=== PATIENT | female | born 1985 | race Caucasian/White ===

== ENCOUNTER 2024-04-04 09:41 | Outpatient (OUT) | payer MEDICAID, SELFPAY ==
--- NOTE | 2024-04-04 09:43 | US_ITS ---
[address] [address] Patient Name: MADHU RENDON MRN: [id number] date: 1985 Sex: F Assigned Patient Location: [facility] Current Patient Location: Accession/Order Number: [id number] Exam Date: 04/04/2024 09:43 Report Date: 04/05/2024 04:39 At the request of: MYA MASSEY Procedure: US OB transvaginal EXAMINATION: US OB transvaginal HISTORY: MISSED MENSES COMPARISON: No relevant comparison available. FINDINGS: GESTATIONAL SAC: Present and normal appearing. YOLK SAC: Present and normal appearing. POLE: Present and normal appearing. CARDIAC: Present. UTERUS: Normal size and appearance. OVARIES: Right: Normal. Left: Normal. CERVIX: 4.9 cm in length and closed. CUL-DE-SAC: Normal. OTHER: None. AGE BY LMP: 9 weeks 3 days KLAUDIA BY LMP: 11/04/2024 AGE BY US CRL: 9 weeks 3 days KLAUDIA BY US CRL: 11/04/2024 US/US OB transvaginal IMPRESSION: 1. Single live intrauterine . Electronically authenticated by: HUMERA KIM Date: 04/05/2024 04:39
== END 2024-04-04 09:42 | disposition home or self-care (01) ==
LOC: NOMS 09:41
PROVIDERS: PCP Family Medicine; Visit Provider Obstetrics & Gynecology
DX: Z34.91 Encounter for supervision of normal pregnancy, unspecified, first trimester (principal); Z3A.09 9 weeks gestation of pregnancy; N92.6 Irregular menstruation, unspecified
CPT/HCPCS: 76817

== ENCOUNTER 2024-04-12 10:46 | Outpatient (OUT) | payer MEDICAID, SELFPAY ==
--- OUTSIDE RECORDS SUMMARY | 2024-04-12 10:52 | XMS_ITS | CCD ---
Author Organization [facility] Care Team Providers Care Assistant Department Manager Name Role Phone PENG MONGE R Unavailable Unavailable BIBI CHRISTY Unavailable Unavailable ERIKA LONDON Attending Unavailab ERIKA Haddad Referring Unavailab Haseeb Chavez Attending Unavailable Peng Monge Referring Unavailable Humaira Gaviria MD Primary Care Provider Jonny Wilcox MD Unavailable Evans CASAS Primary Care Physician Cheri Norwood Unavailable Unavailable Cosmo Elliott MD Unavailable [phone] Lauro LARSON, Davida Unavailable [phone] Evans Casas Primary Care Provider [phone] EVANS CASAS Primary Care Unavailable TOD LOPEZ Referring Unavailable Humaira Gaviria MD Primary Care Provider Jonny Wilcox MD P Unavailable Cosmo Elliott MD R Unavailable Lauro RN, Davida Unavailable Evans Casas DO Primary Care Provider [phone] Jonny Wilcox MD P Unavailable Cosmo Elliott MD R Unavailable [phone] Lauro LARSON, Davida Unavailable Evans Casas DO Primary Care Provider DR WILTON HERRMANN Primary Care Unavailable DR WILTON HERRMANN Admitting Unavailable DR WILTON HERRMANN Attending Unavailable MARTHA, DR ACUNA Consulting Unavailable KARASIK, DR ACUNA Admitting Unavailable KARASIK, DR ACUNA Attending Unavailable MONTEZ, DR ROQUE Primary Care Unavailable MONTEZ, DR ROQUE Consulting Unavailable ZIEBER, DR HUMERA Palmer Consulting Unavailable MONTEZ, DR ROQUE Admitting Unavailable MONTEZ, DR ROQUE Attending Unavailable MONTEZ, DR ROQUE Primary Care Unavailable VAN, DR ANGIE Luna Consulting Unavailable MONTEZ, DR ROQUE Consulting Unavailable MONTEZ, DR ROQUE Admitting Unavailable MONTEZ, DR ROQUE Primary Care Unavailable MONTEZ, DR ROQUE Consulting Unavailable MONTEZ, DR ROQUE Attending Unavailable MONTEZ, DR ROQUE Admitting Unavailable MONTEZ, DR ROQUE Consulting Unavailable MONTEZ, DR ROQUE Attending Unavailable MONTEZ, DR ROQUE Primary Care Unavailable MONTEZ, DR ROQUE Admitting Unavailable KARASIK, DR ACUNA Consulting Unavailable MONTEZ, DR ROQUE Primary Care Unavailable MONTEZ, DR ROQUE Attending Unavailable MONTEZ, DR ROQUE Consulting Unavailable ZIEBER, DR HUMERA Palmer Consulting Unavailable MONTEZ, DR ROQUE Admitting Unavailable MONTEZ, DR ROQUE Consulting Unavailable MONTEZ, DR ROQUE Primary Care Unavailable MONTEZ, DR ROQUE Attending Unavailable MONTEZ, DR ROQUE Primary Care Unavailable MONTEZ, DR ROQUE Consulting Unavailable MONTEZ, DR ROQUE Admitting Unavailable MONTEZ, DR ROQUE Attending Unavailable MONTEZ, DR ROQUE Primary Care Unavailable MONTEZ, DR ROQUE Consulting Unavailable MONTEZ, DR ROQUE Admitting Unavailable MONTEZ, DR ROQUE Attending Unavailable MONTEZ, DR ROQUE Admitting Unavailable MONTEZ, DR ROQUE Primary Care Unavailable MONTEZ, DR ROQUE Consulting Unavailable MONTEZ, DR ROQUE Attending Unavailable ZIEBER, DR HUMERA Palmer Consulting Unavailable MONTEZ, DR ROQUE Primary Care Unavailable MONTEZ, DR ROQUE Consulting Unavailable MONTEZ, DR ROQUE Admitting Unavailable MONTEZ, DR ROQUE Attending Unavailable MONTEZ, DR ROQUE Admitting Unavailable MONTEZ, DR ROQUE Consulting Unavailable MONTEZ, DR ROQUE Primary Care Unavailable MONTEZ, DR ROQUE Attending Unavailable MONTEZ, DR ROQUE Primary Care Unavailable MONTEZ, DR ROQUE Consulting Unavailable MONTEZ, DR ROQUE Admitting Unavailable MONTEZ, DR ROQUE Attending Unavailable ZIEBER, DR HUMERA Palmer Consulting Unavailable MONTEZ, DR ROQUE Primary Care Unavailable MONTEZ, DR ROQUE Consulting Unavailable PUSHPA, TIARRA Attending Unavailable FINA, DR HARIKA Tony Admitting Unavailable ZIEBER, DR HUMERA Palmer Consulting Unavailable MONTEZ, DR ROQUE Consulting Unavailable MONTEZ, DR ROQUE Attending Unavailable MONTEZ, DR ROQUE Admitting Unavailable MONTEZ, DR ROQUE Primary Care Unavailable ZIEBER, DR HUMERA Palmer Consulting Unavailable PUSHPA, TIARRA Consulting Unavailable MONTEZ, DR ROQUE Consulting Unavailable MONTEZ, DR ROQUE Admitting Unavailable MONTEZ, DR ROQUE Primary Care Unavailable MONTEZ, DR ROQUE Attending Unavailable MONTEZ, DR ROQUE Primary Care Unavailable MONTEZ, DR ROQUE Consulting Unavailable MONTEZ, DR ROQUE Admitting Unavailable MONTEZ, DR ROQUE Attending Unavailable MONTEZ, DR ROQUE Admitting Unavailable MONTEZ, DR ROQUE Attending Unavailable MONTEZ, DR ROQUE Primary Care Unavailable KARASIK, DR ACUNA Admitting Unavailable KARASIK, DR ACUNA Attending Unavailable MONTEZ, DR ROQUE Primary Care Unavailable KARASIK, DR ACUNA Consulting Unavailable MONTEZ, DR ROQUE Admitting Unavailable MONTEZ, DR ROQUE Primary Care Unavailable MONTEZ, DR ROQUE Consulting Unavailable MONTEZ, DR ROQUE Attending Unavailable ZIEBER, DR HUMERA Palmer Consulting Unavailable MONTEZ, DR ROQUE Admitting Unavailable MONTEZ, DR ROQUE Attending Unavailable MONTEZ, DR ROQUE Primary Care Unavailable MONTEZ, DR ROQUE Admitting Unavailable MONTEZ, DR ROQUE Primary Care Unavailable MONTEZ, DR ROQUE Attending Unavailable KARASIK, DR ACUNA Consulting Unavailable KARASIK, DR ACUNA Admitting Unavailable KARASIK, DR ACUNA Procedure Practitioner Unava ilable KARASIK, DR ACUAN Attending Unavailable MONTEZ, DR ROQUE Primary Care Unavailable MONTEZ, DR ROQUE Consulting Unavailable MONTEZ, DR ROQUE Admitting Unavailable MONTEZ, DR ROQUE Primary Care Unavailable MONTEZ, DR ROQUE Consulting Unavailable MONTEZ, DR ROQUE Attending Unavailable MONTEZ, DR ROQUE Admitting Unavailable MONTEZ, DR ROQUE Consulting Unavailable MONTEZ, DR ROQUE Primary Care Unavailable MONTEZ, DR ROQUE Attending Unavailable MONTEZ, DR ROQUE Admitting Unavailable MONTEZ, DR ROQUE Consulting Unavailable MONTEZ, DR ROQUE Primary Care Unavailable MONTEZ, DR ROQUE Attending Unavailable MONTEZ, DR ROQUE Admitting Unavailable MONTEZ, DR ROQUE Consulting Unavailable MONTEZ, DR ROQUE Primary Care Unavailable MONTEZ, DR ROQUE Attending Unavailable Brenden ROSARIO, Jonny Tsai Unavailable Lauro LARSON, Davdia Unavailable Evans Casas DO Primary Care Provider ZUHAIR MICHELLE Attending Unavailable KAPEVANS CONTRERAS Referring Unavailable KAPBEN, Evans Tony Admitting Unavailable KAPBEN, Evans Tony Attending Unavailable KAPBEN, Evans Tony Admitting Unavailable KAPBEN, Evans Tony Attending Unavailable Benny Uribe Attending Unavailable NELI DUNHAM Attending Unavailabl e Hal, Maxine Varela Attending Unavailable Hal, Maxine Varela Attending Unavailable KAPBEN, Evans Tony Attending Unavailable KAPBEN, Evans Tony Attending Unavailable KAPBEN, Evans Tony Attending Unavailable KAPBEN, Evans Tony Attending Unavailable KAPBEN, Evans Tony Attending Unavailable KAPBEN, Evans Tony Attending Unavailable MissLourdes pizano Attending Unavailab le PRAVEEN, Evans Tony Attending Unavailable Monica Saba Admitting Unavailable Monica Saba Attending Unavailable Monica Saba Referring Unavailable PENG MONGE Consulting Unavailable MD PENG MONGE Consulting Unavailable Lourdes Garber Attending Unavailab Monica Escobar Admitting Unavailable Monica Saba Attending Unavailable Monica Saba Referring Unavailable Benny Uribe Attending Unavailable KAPBEN, Evans Tony Attending Unavailable Monica Saba Attending Unavailable KAPEvans CONTRERAS Admitting Unavailable KAPBEN, Evans Tony Attending Unavailable Day Anni Attending Unavailable Day Anni Attending Unavailable KAPBEN, Evans Tony Attending Unavailable KAPBEN, Evans Tony Attending Unavailable MONTEZ, Wilton R Admitting Unavailable MONTEZ, Wilton R Attending Unavailable KAPBEN, Evans Tony Admitting Unavailable KAPBEN, Evans Tony Attending Unavailable MONTEZ, Wilton R Attending Unavailable MONTEZ, Wilton R Admitting Unavailable MONTEZ, Wilton R Attending Unavailable MONTEZ, Wilton R Admitting Unavailable KAPLE, EVANS Tony Primary Care Unavailable KAPLE, EVANS Tony Primary Care Unavailable ABHYANKAR, SALVADOR Attending Unavailable KAPLE, EVANS Tony Primary Care Unavailable KAPLE, EVANS Tony Primary Care Unavailable ABHYANKAR, SALVADOR Referring Unavailable ABHYANKAR, SALVADOR Attending Unavailable KAPLE, EVANS Tony Primary Care Unavailable ABHYANKAR, SALVADOR Referring Unavailable ABHYANKAR, SALVADOR Attending Unavailable KAPLE, EVANS Tony Primary Care Unavailable ABHYANKAR, SALVADOR Referring Unavailable KAPLE, EVANS Tony Primary Care Unavailable ABHYANKAR, SALVADOR Referring Unavailable ABHYANKAR, SALVADOR Attending Unavailable KAPLE, EVANS Tony Primary Care Unavailable ABHYANKAR, SALVADOR Attending Unavailable ABHYANKAR, SALVADOR Referring Unavailable KAPLE, EVANS Tony Primary Care Unavailable ABHYANKAR, SALVADOR Attending Unavailable ABHYANKAR, SALVADOR Referring Unavailable KAPLE, EVANS Tony Primary Care Unavailable KAPLE, EVANS Tony Primary Care Unavailable KAPLE, EVANS Tony Primary Care Unavailable ABHYANKAR, SALVADOR Referring Unavailable KAPLE, EVANS Tony Primary Care Unavailable ABHYANKAR, SALVADOR Referring Unavailable KAPLE, EVANS Tony Primary Care Unavailable ABHYANKAR, SALVADOR Referring Unavailable MONTEZ, Wilton R Attending Unavailable MONTEZ, Wilton R Attending Unavailable MONTEZ, Wilton R Admitting Unavailable MONTEZ, Wilton R Attending Unavailable MONTEZ, Wilton R Admitting Unavailable MONTEZ, Wilton R Attending Unavailable MONTEZ, Wilton R Admitting Unavailable Kaple Evans ROSARIO Primary Care Provider Allergies Allergy Classification Reported Allergen(s) Allergy Type Date of Onset Reaction(s) Facility (20 sources) Ciprofloxacin; 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: [ciprofloxacin] Drug Allergy 05-19-19 Other: See Comments, Unknown, Numbness and tingling sensation of skin (finding), Nausea (finding), Other (See Comments), GI intolerance [facility] Work Phone: (20 sources) Ciprofloxacin / fluocinolone; 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: [CIPROFLOXACIN-FL UOCINOLONE] Drug Allergy 05-19-19 Other: See Comments [facility] (20 sources) cow milk allergenic extract; 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: [MILK] Drug Allergy 05-25-19 Other: See Comments [facility] Work Phone: (20 sources) Lactalbumin; 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: [LACTALBUMIN] Drug Allergy 05-25-19 18 Unknown, GI Upset [facility] (20 sources) Lactose; 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: [LACTOSE] Drug Allergy 09-11-19 18 GI Upset [facility] (20 sources) Milk Drug Allergy 05-25-19 18 Other: See Comments [facility] (6 sources) Penicillins Drug Allergy 02-01-20 19 Unknown [facility] (20 sources) Seasonal allergy; 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: [SEASONAL ALLERGIES] Allergy to substance 05-05-19 21 GI Upset, Other: See Comments [facility] Work Phone: (20 sources) Milk Products; 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: [Milk Products] Drug allergy Illness (finding) [facility] (2 sources) Ciprofloxacin / fluocinolone Drug Allergy 05-19-19 20 Other (See Comments) [employer] Work Phone: (1 source) Seasonal allergy Propensity to adverse reactions to substance 05-05-19 21 Other (See Comments) [employer] Work Phone: (1 source) Milk-Related Compounds Propensity to adverse reactions to drug 05-25-19 18 Other (See Comments) [employer] Phone: (2 sources) Penicillins Drug Allergy 02-01-20 19 Unknown [facility] (1 source) Ciprofloxacin Drug Allergy 03-30-20 22 [facility] (1 source) MILK CONTAINING PRODUCTS (DAIRY); 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: [MILK CONTAINING PRODUCTS (DAIRY)] Propensity to adverse reactions to drug (disorder) 05-25-19 [facility] (1 source) Lactose (non-medical use) Propensity to adverse reactions 09-11-19 18 [facility] (1 source) Lactose (non-medical use) Drug Allergy 11-15-19 24 [facility] (1 source) Octacosanol Drug Intolerance 05-05-19 21 [facility] (1 source) Other Allergy to substance 05-25-19 18 Other [facility] Work Phone: Medications Current Medications Medication Drug Class(es) Dates Sig (Normalized) Sig (Original) acetaminophen 300 mg / codeine phosphate 30 mg oral tablet (1 source) Opioid Agonist Start: 12-22-2016 acetaminophen-code ine (TYLENOL #3) 300-30 MG per tablet Albuterol (Eqv-ProAir HFA) 90 mcg/inh inhalation aerosol (6 sources) Start: 02-02-2024 take 2 puff(s) by inhalation every six hours Albuterol (Eqv-ProAir HFA) 90 mcg/inh inhalation aerosol 2 puff(s), Inhalation, q6hr, 1 EA, Refill(s) 5, [facility], 168, cm, 02/02/24 14:43:00 EDT, Height/Length Dosing, 101.1, kg, 02/02/24 14:43:00 EDT, Weight Dosing Start Date: 02/02/24 Status: Ordered aspirin 81 mg chewable tablet (1 source) Platelet Aggregation Inhibitor, Nonsteroidal Anti-inflammatory Drug aspirin 81 MG chewable tablet Chew 81 mg in the morning. Active azithromycin 250 mg Tab 5-day Dose Pack (Z-Jonny) (2 sources) Start: 02-02-2024 End: 02-07-2024 azithromycin 250 mg Tab 5-day Dose Pack (Z-Jonny) = 1 packet(s), Oral, As Directed, as directed on package labeling, X 5 day(s), # 6 tab(s), Refills(s) 0, Pharmacy: [facility], 168, cm, 02/02/24 14:43:00 EDT, Height/Length Dosing, 101.1, kg, 02/02/24 14:43:00 EDT, Weight Dosing Start Date: 02/02/24 Stop Date: 02/07/24 Status: Ordered cephalexin 500 mg oral tablet (3 sources) Cephalosporin Antibacterial Start: 08-19-2021 End: 08-29-2021 take 1 tablet by mouth twice daily cephalexin 500 mg oral tablet 500 mg = 1 tab(s), Oral, BID, X 10 day(s), # 20 tab(s), Refills(s) 0, Pharmacy: [facility], 168, cm, 08/19/21 10:50:00 EDT, Height/Length Dosing, 103.6, kg, 08/19/21 10:50:00 EDT, Weight Dosing Start Date: 08/19/21 Stop Date: 08/29/21 Status: Ordered ciprofloxacin 3 mg/ml / dexamethasone 1 mg/ml otic suspension (2 sources) Corticosteroid, Quinolone Antimicrobial Start: 10-23-2023 End: 10-30-2023 Ciprodex 0.3%-0.1% Susp-Otic 4 drop(s), Otic, BID for 7 day(s), 7.5 mL, Refill(s) 0, [facility]/pharmacy #[id number], 168, cm, 10/23/23 16:55:00 EDT, Height/Length Dosing, 106.2, kg, 10/23/23 16:55:00 EDT, Weight Dosing Start Date: 10/23/23 Stop Date: 10/30/23 Status: Ordered Start: 02-15-2023 End: 02-22-2023 Ciprodex 0.3%-0.1% Susp-Otic 4 drop(s), Otic, BID for 7 day(s), 7.5 mL, Refill(s) 0, Only use if drainage or pain of ear shake well before using, [facility], 168, cm, 02/15/23 9:49:00 EDT, Height/Length Dosing, 108, kg, 02/15/23 9:49:00 EDT, Weight Dosing Start Date: 02/15/23 Stop Date: 02/22/23 Status: Ordered docusate sodium 100 mg oral capsule (1 source) take 1 capsule by mouth in the morning docusate sodium (COLACE) 100 MG capsule Take 100 mg by mouth in the morning and 100 mg before bedtime. 0 Active 0.4 ml enoxaparin sodium 100 mg/ml prefilled syringe (20 sources) Low Molecular Weight Heparin Start: End: enoxaparin (LOVENOX) 40 mg/0.4 mL Indications: Primary hypercoagulable state (HCC) , CVA, old, speech/language deficit , Cerebral hyponatremia INJECT 1 SYRINGE SUBCUTANEOUSLY EVERY 24 HOURS 90 mL 01/25/2024 Active Start: 04-06-2022 End: 09-28-2022 enoxaparin (LOVENOX) 40 mg/0 .4 mL Indications: Primary hypercoagulable state (HCC) , CVA, old, speech/language deficit , Cerebral hyponatremia INJECT THE CONTENTS OF ONE SYRINGE (0.4 ML) SUBCUTANEOUSLY EVERY 24 HOURS 90 mL 2 09/28/2022 Active Start: 09-06-2021 End: 10-06-2021 inject 0.8 mL by subcutaneous injection twice daily enoxaparin (LOVENOX) 80 mg/0.8 mL Indications: Primary hypercoagulable state (HCC) Inject 0.8 mL subcutaneously twice daily. 48 mL 5 09/06/2021 10/06/2021 Active Start: 04-07-2020 End: 03-30-2022 inject 0.4 mL by subcutaneous injection every twenty-four hours enoxaparin (LOVENOX) 40 mg/0.4 mL Indications: Primary hypercoagulable state (HCC) , CVA, old, speech/language deficit , Cerebral hyponatremia Inject 0.4 mL subcutaneously every 24 hours. 36 mL 0 12/30/2021 03/30/2022 Active Comment on above: Inject 0.4 mL subcut aneously every 24 hours Inject 0.8 mL subcut aneously twice daily. Inject 0.4 mL subcut aneously every 24 hours. INJECT THE CONTENTS OF ONE SYRINGE (0.4 ML) SUBCUTANEOUSLY EVERY 24 HOURS enoxaparin (LOVENOX) 40 MG/0.4ML injection (1 source) Start: 0 enoxaparin (LOVENOX) 40 MG/0.4ML injection Inject 0.4 mLs into the skin daily 16 mL 1 02/20/2020 Active famotidine 20 mg oral tablet (7 sources) Histamine-2 Receptor Antagonist Start: take 1 tablet by mouth once daily famotidine (PEPCID) 20 mg tablet Take 1 tablet by mouth once daily. To take prior to infusion 1 tablet 11/29/2023 Active Start: 11-29-2023 End: 11-29-2023 famotidine 20 mg injection ( PEPCID) fluticasone propionate 0.05 mg/actuat metered dose nasal spray (3 sources) Corticosteroid Start: 08-03-2023 Flonase 0.05 m g/inh [place] 2 spray(s), Nasal, Daily, 16 gram, Refill(s) 0, each nostril Start Date: 08/03/23 Status: Ordered levothyroxine sodium 0.025 mg oral tablet (20 sources) l-Thyroxine Start: 02-25-2024 End: 02-24-2025 take 1 tablet by mouth before mealtime levothyroxine (Synthroid) 25 MCG tablet Indications: Abnormal TSH Take 1 tablet (25 mcg) by mouth in the morning. Take before meals. 30 tablet 11 02/25/2024 02/24/2025 Active Start: 08-24-2021 End: 09-26-2023 levothyroxine (SYNTHROID) 25 mcg tablet Take 25 mcg by mouth. 0 08/24/2021 09/26/2023 Discontinued take 3 tablets by mo uth once daily levothyroxine (Synthroid) 25 MCG tablet Take 75 mcg by mouth 1 (one) time each day at the same time Active Comment on above: Take 25 mcg by mouth . Lovenox 40 mg/0.4 mL Injection (20 sources) Start: 04-07-20 inject 40 mg by subcutaneous injection every twenty-four hours Lovenox 40 mg/0.4 mL Injection 40 mg, SubCutaneous, q24hr, # 7 EA, Refills(s) 0, Blood Thinner Start Date: 04/07/20 Status: Ordered 24 hr metFORMIN hydrochloride 500 mg extended release oral tablet (20 sources) Biguanide Start: 11-27-19 End: 11-27-19 take 1 tablet by mouth once daily metFORMIN XR (Glucophage-XR) 500 MG 24 hr tablet Indications: Insulin resistance Take 1 tablet (500 mg) by mouth 1 (one) time each day at the same time 30 tablet 11 11/27/2023 11/26/2024 Active Start: 10-20-2022 MetFORMIN (Eqv -Glucophage XR) 500 mg oral tablet, extended release 1,000 mg = 2 tab(s), Oral, Daily, Refills(s) 0 Start Date: 10/20/22 Status: Ordered Start: 03-26-2022 metFORMIN ER ( GLUCOPHAGE XR) 500 mg 24 hr tablet 03/26/2022 Active Multiple Vitamin (Multi-Vitamin) tablet (1 source) take 1 tablet by luna th in the morning Multiple Vitamin (Multi-Vitamin) tablet Take 1 tablet by mouth in the morning. Active multivitamin tablet (20 sources) take 1 tablet by luna th once daily multivitamin tablet Take 1 tablet by mouth once daily. Active take 1 tablet by mouth once mini y multivitamin tablet Take 1 tablet by mouth once daily. 0 Active Comment on above: Take 1 tablet by luna th once daily. ondansetron 4 mg disintegrating oral tablet (1 source) Serotonin-3 Receptor Antagonist Start: 03-07-20 End: 04-06-20 take 1 tablet by mouth every six hours as needed for nausea and vomiting and nausea and nausea ondansetron ODT (Zofran-ODT) 4 MG disintegrating tablet Indications: Nausea Take 1 tablet (4 mg) by mouth every 6 (six) hours if needed for nausea or vomiting 30 tablet 2 03/07/2024 04/06/2024 Active Vit-Fe Fumarate-FA ( PO) (1 source) Start: 11-01-19 Vit-Fe Fumarate-FA ( PO) Take 1 tablet by mouth 0 10/31/2018 Active Vitamin D (12 sources) Start: 08-03-19 Vitamin D 2,000 International_Unit, Oral, qWeek, Refills(s) 0 Start Date: 08/03/23 Status: Ordered Completed/Discontinued Medications Medication Drug Class(es) Dates Sig (Normalized) Sig (Original) 1 ml dexamethasone phosphate 4 mg/ml injection (1 source) Corticosteroid Start: 11-29-2023 End: 11-29-2023 dexAMETHasone sodium phosphate 8 mg injection (DECADRON) iron sucrose 300 mg in NaCl 0.9% 250 mL (VENOFER) (3 sources) Start: 11-29-2023 End: 11-29-2023 iron sucrose 300 mg in NaCl 0.9% 250 mL (VENOFER) Start: 11-22-2023 End: 11-22-2023 iron sucrose 300 mg in NaCl 0.9% 250 mL (VENOFER) Start: 11-15-2023 End: 11-15-2023 iron sucrose 300 mg in NaCl 0.9% 250 mL (VENOFER) multivitamin (MULTIPLE VITAMINS) tablet (7 sources) take 1 tablet by mouth once daily multivitamin (MULTIPLE VITAMINS) tablet Take 1 tablet by mouth once daily. 0 Active Comment on above: Take 1 tablet by luna th once daily. polysaccharide iron complex 391 mg oral capsule (20 sources) Start: 2 End: 4 PRO FE 180 mg iron cap Problems Active Problems Problem Classification Problem Date Documented Date Episodic/Chronic Acute cerebrovascular disease (4 sources) Cerebral infarction; 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: [Cerebral infarction, unspecified] Onset: 0 05-16-2019 Chronic Anxiety disorders (20 sources) Anxiety; 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: [Anxiety disorder, unspecified] Onset: 4 12-24-2020 Chronic Cardiac dysrhythmias (2 sources) Supraventricular tachycardia; 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: [Supraventricular tachycardia] Onset: 0 02-08-2021 Chronic Coagulation and hemorrhagic disorders (20 sources) Antiphospholipid syndrome; 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: [Hypercoagulability state] Onset: 9 07-29-2017 Chronic Deficiency and other anemia (20 sources) Iron 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; 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: [Iron deficiency anemia secondary to blood loss (chronic)] Onset: 2 Chronic Deficiency and other anemia (1 source) Iron deficiency anemia secondary to blood loss (chronic); 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: [Iron deficiency anemia secondary to blood loss (chronic)] Onset: 2 Chronic Deficiency and other anemia (1 source) Anemia; 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: [Anemia, unspecified] Episodic Esophageal disorders (1 source) Laryngopharyngeal reflux; 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: [Gastro-esophageal reflux disease without esophagitis] Onset: 4 11-19-2023 Chronic Headache; including migraine (20 sources) Migraine without aura, not refractory ; 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: [Migraine without aura, not intractable, without status migrainosus] Onset: 8 09-12-2017 Chronic Late effects of cerebrovascular disease (20 sources) 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; 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: [Other speech and language deficits following cerebral infarction] Onset: 0 Chronic Menopausal disorders (1 source) Hormone replacement therapy; 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: [HORMONE REPLACEMENT THERAPY] Onset: 3 Episodic Menstrual disorders (7 sources) Irregular menstruation, unspecified; 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: [Missed period] Onset: 2 Chronic Miscellaneous mental health disorders (20 sources) Psychogenic hyperventilation; 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: [Other somatoform disorders] Onset: 4 10-12-2020 Chronic Multiple sclerosis (1 source) Multiple sclerosis; 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: [Multiple sclerosis] Onset: 8 Chronic Nutritional deficiencies (7 sources) Vitamin D deficiency; 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: [Vitamin D deficiency, unspecified] Onset: 3 12-22-2022 Chronic Other aftercare (1 source) Other residential (current) drug therapy; 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: [OTH SNF CURRENT DRUG THERAPY] Onset: 3 Episodic Other aftercare (1 source) 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; 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: [BLOCKER METAL BASE USE ORAL HYPOGLYCEMIC DX] Onset: 3 Episodic Other circulatory disease (3 sources) History of cerebrovascular disease; 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: [Personal history of transient ischemic attack (TIA), and cerebral infarction without residual deficits] Onset: 0 02-08-2021 Episodic Other circulatory disease (1 source) Personal history of transient ischemic attack (TIA), and cerebral infarction without residual deficits; 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: [PERS HX TIA AND CI NO RESID DEFICIT] Onset: 3 Episodic Other complications of ; puerperium affecting management of mother (2 sources) Anemia in mother complicating childbirth; 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: [Anemia complicating childbirth] Onset: 0 02-08-2021 Chronic Other complications of ; puerperium affecting management of mother (1 source) Other diseases of the blood and blood-forming organs and certain disorders involving the immune mechanism complicating childbirth; 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: [OTH DZ BLD BFO IMMUN COMP CHILDBRTH] Onset: 3 Episodic Other complications of ; puerperium affecting management of mother (1 source) Endocrine, nutritional and metabolic diseases complicating childbirth; 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: [ENDOCRN NUTR MET DZ COMP CHILDBIRTH] Onset: 3 Episodic Other complications of ; puerperium affecting management of mother (1 source) Streptococcus B carrier state complicating childbirth; 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: [STREP B QUIROZ STATE COMP CHILDBIRTH] Onset: 3 Episodic Other complications of (20 sources) Iron deficiency anemia of ; 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: [Anemia complicating , unspecified trimester] Onset: 2 Chronic Other complications of (1 source) Endocrine, nutritional and metabolic diseases complicating , third trimester; 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: [ENDOCRN NUTR MET DZ COMP PG 3RD TRI] Onset: 3 Episodic Other complications of (5 sources) Supervision of elderly multigravida, third trimester; 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: [SUP ELDER MULTIGRAVIDA THIRD TRI] Onset: 2 Episodic Other complications of (1 source) Other diseases of the blood and blood-forming organs and certain disorders involving the immune mechanism complicating , third trimester; 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: [OTH DZ BLD BFO IMMN COMP PG 3RD TRI] Onset: 3 Episodic Other complications of (1 source) Maternal care for excessive growth, third trimester, not applicable or unspecified; 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: [MAT CARE EXCSS FTL GRTH 3RD TRI UNS] Onset: 2 Episodic Other ear and sense organ disorders (2 sources) Otitis externa of right ear; 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: [Unspecified otitis externa, right ear] Onset: 3 Chronic Other ear and sense organ disorders (7 sources) Otitis externa 02-15-2023 Chronic Other endocrine disorders (20 sources) Hypoglycemia; 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: [Hypoglycemia, unspecified] Onset: 4 02-15-2021 Chronic Other hematologic conditions (1 source) H/O: blood disorder; 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: [Personal history of diseases of the blood and blood-forming organs and certain disorders involving the immune mechanism] Onset: 4 Episodic Other lower respiratory disease (9 sources) Cough 04-19-2021 Episodic Other nervous system disorders (1 source) Idiopathic progressive neuropathy; 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: [Idiopathic progressive neuropathy] Onset: 9 Chronic Other nervous system disorders (2 sources) Neuropathy; 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: [Idiopathic progressive neuropathy] Onset: 7 07-11-2019 Chronic Other nervous system disorders (9 sources) Muscle twitch 08-19-2021 Episodic Other nutritional; endocrine; and metabolic disorders (9 sources) Obese class II; 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: [Body mass index (BMI) 36.0-36.9, adult] Onset: 2 Chronic Other nutritional; endocrine; and metabolic disorders (20 sources) Obesity; 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: [Other obesity] Onset: 4 10-12-2020 Chronic Other nutritional; endocrine; and metabolic disorders (20 sources) Morbid obesity; 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: [Morbid (severe) obesity due to excess calories] Onset: 3 Chronic Other nutritional; endocrine; and metabolic disorders (3 sources) Hypercalcemia; 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: [Hypercalcemia] 06-05-2023 Chronic Other nutritional; endocrine; and metabolic disorders (16 sources) Body mass index 30+ - obesity; 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: [Body mass index (BMI) 37.0-37.9, adult] Onset: 4 10-23-2023 Chronic Other nutritional; endocrine; and metabolic disorders (1 source) Hypercalcemia; 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: [Hypercalcemia] Onset: 4 Chronic Other nutritional; endocrine; and metabolic disorders (1 source) H/O: Disorder; 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: [Personal history of other endocrine, nutritional and metabolic disease] Onset: 4 Episodic Other and delivery including normal (20 sources) Normal ; 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: [Encounter for supervision of normal , unspecified, first trimester] Onset: 0 02-12-2020 Episodic Other screening for suspected conditions (not mental disorders or infectious disease) (7 sources) Encounter for screening for malignant neoplasm of cervix; 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: [Encounter for screening for diabetes mellitus] Onset: 2 Episodic Other skin disorders (1 source) Podopompholyx; 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: [Dyshidrosis [pompholyx]] Onset: 4 Episodic Other upper respiratory disease (12 sources) Allergy to pollen 08-03-2023 Chronic Other upper respiratory disease (1 source) Polyp of nasal sinus; 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: [Nasal polyp, unspecified] Onset: 4 Episodic Residual codes; unclassified (1 source) Sleep disorder; 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: [Other sleep disorders] Onset: 3 Chronic Residual codes; unclassified (18 sources) Obstructive sleep apnea syndrome; 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: [Obstructive sleep apnea (adult) (pediatric)] Onset: 4 10-25-2022 Chronic Residual codes; unclassified (3 sources) Patient encounter status; 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: [Other specified health status] Onset: 9 Episodic Residual codes; unclassified (1 source) 39 weeks gestation of ; 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: [39 WEEKS GESTATION OF ] Onset: 3 Episodic Residual codes; unclassified (1 source) Family history of diabetes mellitus; 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: [FAMILY HISTORY OF DIABETES MELLITUS] Onset: 3 Episodic Residual codes; unclassified (1 source) Family history of stroke; 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: [FAMILY HISTORY OF STROKE] Onset: 3 Episodic Residual codes; unclassified (1 source) 38 weeks gestation of ; 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: [38 WEEKS GESTATION OF ] Onset: 3 Episodic Residual codes; unclassified (1 source) 37 weeks gestation of ; 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: [37 WEEKS GESTATION OF ] Onset: 3 Episodic Residual codes; unclassified (1 source) 35 weeks gestation of ; 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: [35 WEEKS GESTATION OF ] Onset: 2 Episodic Residual codes; unclassified (1 source) 34 weeks gestation of ; 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: [34 WEEKS GESTATION OF ] Onset: 2 Episodic Residual codes; unclassified (1 source) 33 weeks gestation of ; 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: [33 WEEKS GESTATION OF ] Onset: 2 Episodic Residual codes; unclassified (1 source) 32 weeks gestation of ; 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: [32 WEEKS GESTATION OF ] Onset: 2 Episodic Residual codes; unclassified (1 source) 31 weeks gestation of ; 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: [31 WEEKS GESTATION OF ] Onset: 2 Episodic Residual codes; unclassified (18 sources) Sleep disorder 10-20-2022 Episodic Residual codes; unclassified (1 source) Localized edema; 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: [Localized edema] Onset: 4 Episodic Thyroid disorders (11 sources) Hypothyroidism; 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: [Hypothyroidism, unspecified] Onset: 0 06-10-2020 Chronic Thyroid disorders (1 source) Disorder of thyroid, unspecified; 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: [DISORDER OF THYROID UNSPECIFIED] Onset: 3 Episodic Transient cerebral ischemia (1 source) Transient cerebral ischemia; 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: [Transient cerebral ischemic attack, unspecified] Onset: 1 06-16-2020 Chronic Unclassified (20 sources) History of SARS-CoV-2 05-10-2021 Unclassified (20 sources) Inhalation injury 06-16-2020 Unclassified (20 sources) Non-smoker 06-16-2020 Unclassified (1 source) CONTACT W/AND (SUSP) EXPOS COVID-19; 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: [CONTACT W/AND (SUSP) EXPOS COVID-19] Onset: 3 Unclassified (5 sources) Patient encounter status 02-05-2024 Viral infection (15 sources) Viral disease 04-27-2023 Episodic Past or Other Problems Problem Classification Problem Date Documented Da te Episodic/Chronic Abdominal pain (20 sources) Abdominal pain; 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: [Pain in pelvis] Onset: 9 10-12-2020 Episodic Acute bronchitis (16 sources) Acute infective bronchitis; 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: [Acute bronchitis due to other specified organisms] Onset: 4 05-10-2021 Episodic Acute posthemorrhagic anemia (2 sources) Acute posthemorrhagic anemia; 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: [Acute posthemorrhagic anemia] Onset: 0 06-10-2020 Episodic Allergic reactions (20 sources) Other allergy status, other than to drugs and biological substances; 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: [Souuy-ly-jzrrlsa vesicular eczema of hands and feet] Onset: 4 Episodic Bacterial infection; unspecified site (2 sources) Bacterial infectious disease; 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: [Other bacterial infections of unspecified site] Onset: 0 02-12-2020 Episodic Calculus of urinary tract (20 sources) History of calculus of kidney; 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: [Personal history of urinary calculi] Onset: 4 11-21-2018 Episodic Cardiac dysrhythmias (11 sources) Palpitations; 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: [Palpitations] Onset: 0 06-10-2020 Episodic Conditions associated with dizziness or vertigo (20 sources) Dizziness; 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: [Dizziness and giddiness] Onset: 9 12-24-2020 Episodic Diabetes mellitus without complication (10 sources) Prediabetes; 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: [Prediabetes] Onset: 4 Episodic Diabetes or abnormal glucose tolerance complicating ; childbirth; or the puerperium (20 sources) Gestational diabetes mellitus in , unspecified control; 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: [Gestational diabetes mellitus in childbirth, unspecified control] Onset: 2 Episodic Diseases of mouth; excluding dental (20 sources) Xerostomia; 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: [Dry mouth, unspecified] Onset: 3 Episodic Fluid and electrolyte disorders (9 sources) Cerebral hyponatremia; 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: [Hypo-osmolality and hyponatremia] Onset: 0 Episodic Gastrointestinal hemorrhage (20 sources) Hematochezia; 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: [Blood-tinged feces] Onset: 4 10-12-2020 Episodic Genitourinary symptoms and ill-defined conditions (20 sources) Genitourinary symptoms; 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: [Unspecified symptoms and signs involving the genitourinary system] Onset: 9 Episodic Immunizations and screening for infectious disease (20 sources) Antibody studies abnormal; 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: [Raised antibody titer] Onset: 8 09-12-2017 Episodic Malaise and fatigue (20 sources) Fatigue; 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: [Other fatigue] Onset: 7 09-11-2017 Episodic Mycoses (20 sources) Candidiasis of vagina Resolved: 9 01-20-2019 Episodic Nutritional deficiencies (12 sources) Vitamin B deficiency; 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: [Deficiency of other specified B group vitamins] Onset: 0 05-16-2019 Episodic OB-related trauma to perineum and vulva (3 sources) First degree perineal tear during delivery - delivered; 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: [First degree perineal laceration during delivery] Onset: 0 02-08-2021 Episodic Other aftercare (2 sources) Long-term current use of anticoagulant; 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] Onset: 0 02-22-2020 Episodic Other aftercare (1 source) Long-term current use of drug therapy; 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: [intermediate (current) use of 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/antipl atelets] Onset: 9 11-15-2023 Episodic Other circulatory disease (20 sources) History of cerebrovascular accident; 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: [Personal history of transient ischemic attack (TIA), and cerebral infarction without residual deficits] Onset: 4 07-29-2017 Episodic Comment on above: reported by pt - rel ated to antiphospholipid syndrome Other circulatory disease (18 sources) Elevated blood-pressure reading without diagnosis of hypertension; 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: [Elevated blood-pressure reading, without diagnosis of hypertension] Onset: 4 01-11-2023 Episodic Other circulatory disease (12 sources) Elevated blood pressure; 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: [Elevated blood-pressure reading, without diagnosis of hypertension] Onset: 4 09-28-2023 Episodic Other complications of ; puerperium affecting management of mother (10 sources) problem; 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: [Unspecified disorders of ] Onset: 4 05-10-2021 Episodic Other complications of ; puerperium affecting management of mother (1 source) Endocrine, nutritional and metabolic disease complicating , childbirth and puerperium; 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: [Endocrine, nutritional and metabolic diseases complicating childbirth] Onset: 0 02-08-2021 Episodic Other complications of ; puerperium affecting management of mother (1 source) Complication of , childbirth and/or the puerperium; 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: [Other diseases of the blood and blood-forming organs and certain disorders involving the immune mechanism complicating childbirth] Onset: 0 02-08-2021 Episodic Other complications of ; puerperium affecting management of mother (2 sources) hemorrhage; 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: [Other immediate hemorrhage] Onset: 0 02-08-2021 Episodic Other complications of (1 source) Vomiting of ; 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: [Vomiting of , unspecified] Onset: 0 07-11-2019 Episodic Other complications of (2 sources) 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; 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: [Maternal care for (suspected) chromosomal abnormality in fetus, not applicable or unspecified] Onset: 0 02-08-2021 Episodic Other complications of (4 sources) Other specified related conditions, third trimester; 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: [OTH SPEC PREG RELATED COND 3RD TRI] Onset: 2 Episodic Other ear and sense organ disorders (1 source) Referred otalgia of right ear; 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: [Otalgia, right ear] Onset: 4 11-19-2023 Episodic Other female genital disorders (2 sources) Noninflammatory disorder of the vagina; 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: [Other specified noninflammatory disorders of vagina] Onset: 9 07-11-2019 Episodic Other female genital disorders (2 sources) Disorder of female reproductive system; 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: [Unspecified condition associated with female genital organs and menstrual cycle] Onset: 0 07-11-2019 Episodic Other female genital disorders (1 source) Other specified noninflammatory disorders of vagina; 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: [OTH SPEC NONINFLAMMATORY D/O VAGINA] Onset: 2 Episodic Other hematologic conditions (20 sources) H/O: anemia - iron deficient; 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: [Personal history of diseases of the blood and blood-forming organs and certain disorders involving the immune mechanism] Onset: 4 12-24-2018 Episodic Other infections; including parasitic (1 source) Personal history of other infectious and parasitic diseases; 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: [History of COVID-19] Onset: 4 11-15-2023 Episodic Other inflammatory condition of skin (1 source) Itching of skin; 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: [Pruritus, unspecified] Onset: 0 06-10-2020 Episodic Other inflammatory condition of skin (1 source) Pruritus, unspecified; 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: [Unspecified pruritic disorder] Onset: 0 11-15-2023 Episodic Other injuries and conditions due to external causes (1 source) Inhalation injury; 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: [Injury, unspecified, initial encounter] Onset: 4 11-15-2023 Episodic Other lower respiratory disease (20 sources) Dyspnea; 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: [Dyspnea, unspecified] Onset: 4 04-19-2021 Episodic Other lower respiratory disease (20 sources) H/O: asthma; 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: [Personal history of other diseases of the respiratory system] Onset: 4 11-21-2018 Episodic Other lower respiratory disease (20 sources) Snoring; 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: [Snoring] Onset: 3 Episodic Other nervous system disorders (2 sources) Muscle fasciculation; 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: [Fasciculation] Onset: 2 Episodic Other nervous system disorders (2 sources) Paresthesia; 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: [Paresthesia of skin] Onset: 0 Episodic Other nervous system disorders (20 sources) Paresthesia of lower extremity; 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: [Paresthesia of skin] Onset: 4 08-19-2021 Episodic Other nervous system disorders (2 sources) Acute postoperative pain; 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: [Other acute postprocedural pain] Onset: 9 07-11-2019 Episodic Other non-traumatic joint disorders (20 sources) Joint pain; 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: [Pain in unspecified joint] Onset: 7 09-11-2017 Episodic Other nutritional; endocrine; and metabolic disorders (16 sources) H/O: hypothyroidism; 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: [Personal history of other endocrine, nutritional and metabolic disease] Onset: 4 04-27-2023 Episodic Other skin disorders (1 source) [id number] vesicular eczema of hands and feet; 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: [Dyshidrosis [pompholyx]] Onset: 4 11-15-2023 Episodic Other upper respiratory disease (11 sources) Deviated nasal septum; 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: [Deviated nasal septum] Onset: 4 Episodic Other upper respiratory disease (10 sources) Polyp of nasal cavity and/or nasal sinus; 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: [Nasal polyp, unspecified] Onset: 4 10-23-2023 Episodic Other upper respiratory infections (20 sources) Acute upper respiratory infection Resolved: 9 01-20-2019 Episodic Otitis media and related conditions (20 sources) Dysfunction of eustachian tube; 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: [Disorder of right Eustachian tube] Onset: 4 05-10-2021 Episodic Ovarian cyst (20 sources) Cyst of ovary; 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: [Cyst of right ovary] Onset: 9 02-13-2019 Episodic Residual codes; unclassified (20 sources) Family history of female genital tract disorder Resolved: 9 01-20-2019 Episodic Residual codes; unclassified (20 sources) FH: Anemia Resolved: 9 01-20-2019 Episodic Residual codes; unclassified (2 sources) First trimester ; 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: [Less than 8 weeks gestation of ] Onset: 0 02-12-2020 Episodic Residual codes; unclassified (2 sources) Gestation period, 32 weeks; 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: [32 weeks gestation of ] Onset: 0 02-08-2021 Episodic Residual codes; unclassified (1 source) Gestation period, 33 weeks; 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: [33 weeks gestation of ] Onset: 0 02-08-2021 Episodic Residual codes; unclassified (1 source) Gestation period, 34 weeks; 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: [34 weeks gestation of ] Onset: 0 02-08-2021 Episodic Residual codes; unclassified (1 source) Gestation period, 35 weeks; 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: [35 weeks gestation of ] Onset: 0 02-08-2021 Episodic Residual codes; unclassified (1 source) Gestation period, 36 weeks; 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: [36 weeks gestation of ] Onset: 0 02-08-2021 Episodic Residual codes; unclassified (1 source) Gestation period, 37 weeks; 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: [37 weeks gestation of ] Onset: 0 02-08-2021 Episodic Residual codes; unclassified (1 source) Gestation period, 38 weeks; 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: [38 weeks gestation of ] Onset: 0 02-08-2021 Episodic Residual codes; unclassified (1 source) Gestation period, 39 weeks; 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: [39 weeks gestation of ] Onset: 0 02-08-2021 Episodic Residual codes; unclassified (3 sources) Other general symptoms and signs; 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: [Other general symptoms] Onset: 0 02-08-2021 Episodic Residual codes; unclassified (1 source) Unspecified blood type, Rh negative; 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: [UNSPECIFIED BLOOD TYPE RH NEGATIVE] Onset: 2 Episodic Residual codes; unclassified (1 source) 28 weeks gestation of ; 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: [28 WEEKS GESTATION OF ] Onset: 2 Episodic Residual codes; unclassified (9 sources) Intolerant of cold; 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: [Other general symptoms and signs] Onset: 4 11-09-2023 Episodic Residual codes; unclassified (1 source) Non-smoker; 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: [Other specified health status] Onset: 4 11-15-2023 Episodic Residual codes; unclassified (1 source) Swelling of salivary gland; 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: [Localized edema] Onset: 4 11-15-2023 Episodic Spondylosis; intervertebral disc disorders; other back problems (2 sources) Neck pain; 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: [Cervicalgia] Onset: 9 07-11-2019 Episodic Spontaneous (20 sources) Miscarriage Resolved: 9 01-20-2019 Episodic Syncope (3 sources) Syncope and collapse; 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: [Syncope and collapse] Onset: 9 07-11-2019 Episodic Unclassified (20 sources) Onset: 7 Resolved: 5 11-01-2018 Unclassified (20 sources) Suspected disease caused by 2019-nCoV 12-24-2020 Unclassified (1 source) Exposure to 2019 novel coronavirus; 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: [Contact with and (suspected) exposure to COVID19] Urinary tract infections (3 sources) Infective urethritis; 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: [Other urethritis] Onset: 0 Episodic Results Test Name Value Interpretation Reference Range Facility HCG ( test) Ql (U)o n 04-04-2024 Interpretation and review of laboratory results Abnormal [facility] Preg Test, Ur Positive Negative [facility] Urinalysis macro (dipstick) panel (U)on 04-04-2024 Bilirubin, UA Negative Negative - 4(70) +++ mg/dL [facility] Blood, UA Negative Negative - 50 Max/mcL [facility] Clarity, UA Clear [facility] Color, UA Yellow [facility] Glucose, UA Negative Negative - 2000(110) ++++ mg/dL [facility] Interpretation and review of laboratory results Normal [facility] Ketones, UA Negative Negative - 160(16) ++++ mg/dL [facility] Leukocytes, UA Negative Negative - 500+++ John/mcL [facility] Nitrite, UA Negative Negative - Positive [facility] pH, UA 5.5 5 - 9 [facility] Protein, UA Negative Negative - 2000(20) ++++ mg/dL [facility] Spec Grav, UA 1.02 1 - 1.03 [facility] Urobilinogen, UA 1.0 0.2 - 12 mg/dL [facility] C Urineon 03-03-2024 Bacteria identified Cx [facility] (U) Microbiology PROCEDURE: Urine Culture [R1] SOURCE: U CleanCatch BODY SITE: COLLECTED DATE/TIME: 03/01/2024 10:30 EDT RECEIVED DATE/TIME: 03/01/2024 13:48 EDT START DATE/TIME: 03/01/2024 13:48 EDT FREE TEXT SOURCE: Wilton HERRMANN DO, DO, Corey R FINAL REPORTS Final Report [] Verified Date/Time: 03/03/2024 08:52 EST 2,000 cfu/ml Mixed skin contaminants Performing Locations R1: This test was performed at: [facility], [address] [place] [address], [id number] , [place], [facility] Comment on above: Performed By: #### [id number] #### [facility] [address] [place] [id number] BhCG Quanton 03-01-2024 HCG.beta subunit Qn 747 m[IU]/mL High 1-3 Fis [facility] Comment on above: Result Comment: 'F N ON < 1 - 3' ' 0.2 - 1 WEEK = 5 TO 50' ' 1 - 2 WEEKS = 50 - 500' ' 2 - 3 WEEKS = 100 - 5000' ' 3 - 4 WEEKS = 500 - 25481' ' 4 - 5 WEEKS = 1000 - 45406' ' 5 - 6 WEEKS = 95982 - 021172' ' 6 - 8 WEEKS = 10259 - 444962' ' 8 - 12 WEEKS = 45737 - 146439' Performed By: #### [id number] #### [facility] [address] [place] [id number] CHEMISTRYOrdered By: SYSTEM SYSTEM on 03-01-2024 HCG.beta subunit Qn 747 m[IU]/mL High 1 - 3 mIU/mL [facility] Comment on above: Result Comment: 'F N ON < 1 - 3' ' 0.2 - 1 WEEK = 5 TO 50' ' 1 - 2 WEEKS = 50 - 500' ' 2 - 3 WEEKS = 100 - 5000' ' 3 - 4 WEEKS = 500 - 50646' ' 4 - 5 WEEKS = 1000 - 52962' ' 5 - 6 WEEKS = 98441 - 772092' ' 6 - 8 WEEKS = 53145 - 685494' ' 8 - 12 WEEKS = 46190 - 211524' BhCG Quanton 10-30-2024 HCG.beta subunit Qn 268 m[IU]/mL High 1-3 Fis [facility] Comment on above: Result Comment: 'F N ON < 1 - 3' ' 0.2 - 1 WEEK = 5 TO 50' ' 1 - 2 WEEKS = 50 - 500' ' 2 - 3 WEEKS = 100 - 5000' ' 3 - 4 WEEKS = 500 - 97451' ' 4 - 5 WEEKS = 1000 - 81173' ' 5 - 6 WEEKS = 85816 - 404943' ' 6 - 8 WEEKS = 15863 - 217261' ' 8 - 12 WEEKS = 17586 - 076542' Performed By: #### 2 [id number] #### [facility] [address] [place] [address] [facility] 02-27-2024 CNPJuaquin Telephone (HEMASA) -- MADHU RENDON ([id number]) 1985 F Date Time Provider Department 02/27/24 NAGA JOHNSON During your visit today, we recorded the following information about you: Naga Johnson RN 02/27/2024 9:45 AM Signed Pt 4 weeks and inquiring if she should have March's lab work completed now or wait until scheduled appt. Pt last labs completed 01/02/24. Pt also would like to know if it is okay to take with iron? Fely: Please advise MARSHA Rush Vivek, MD 02/27/2024 4:39 PM Signed She can take the iron with prenatals. We should Johnathon labs as scheduled. Naga Johnson RN 02/28/2024 8:21 AM Signed Pt aware and agreeable to plan of care. Pt denies any further questions, needs or concerns at this time. Appt verified for lab/follow up Naga Johnson RN Allergies As of Date: 02/27/2024 Noted Allergy Reaction CIPROFLOXACIN 05/19/2019 14 - Other: See Comments 16 - Unknown Comments: Dizziness, weakness sweating CIPROFLOXACIN-FLUOCINOLONE 05/19/2019 14 - Other: See Comments Comments: Dizziness, weakness sweating LACTOSE 09/10/2017 8 - GI Upset Comments: Diarrhea SEASONAL ALLERGIES 05/05/2020 8 - GI Upset 14 - Other: See Comments LACTALBUMIN 05/25/2017 16 - Unknown 8 - GI Upset Comments: Crampy and gassy MILK 05/25/2017 14 - Other: See Comments Comments: Crampy and gassy Diarrhea Other reaction(s): GI Upset Crampy and gassy MILK CONTAINING PRODUCTS (DAIRY) 05/25/2017 14 - Other: See Comments Comments: Crampy and gassy Diarrhea Other reaction(s): GI Upset Crampy and gassy Date Reviewed: 01/02/2024 Reviewed by: Serina Dawson MA - Fully Assessed Reason for Visit: Patient Question [1707] Prescriptions as of 02/28/2024 - enoxaparin (LOVENOX) 40 mg/0.4 mL INJECT 1 SYRINGE SUBCUTANEOUSLY EVERY 24 HOURS - famotidine (PEPCID) 20 mg tablet Take 1 tablet by mouth once daily. To take prior to infusion - metFORMIN ER (GLUCOPHAGE XR) 500 mg 24 hr tablet - multivitamin tablet Take 1 tablet by mouth once daily. 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] 08/01/2022 Encounter Status:Closed by NAGA JOHNSON on 02/28/24 Normal [facility] 02-25-2024 HCG.beta subunit Qn 123 m[IU]/mL High 1-3 Fis [facility] Comment on above: Result Comment: 'F N ON < 1 - 3' ' 0.2 - 1 WEEK = 5 TO 50' ' 1 - 2 WEEKS = 50 - 500' ' 2 - 3 WEEKS = 100 - 5000' ' 3 - 4 WEEKS = 500 - 27178' ' 4 - 5 WEEKS = 1000 - 76388' ' 5 - 6 WEEKS = 65077 - 643502' ' 6 - 8 WEEKS = 46326 - 304900' ' 8 - 12 WEEKS = 07576 - 447927' Performed By: #### 2 [id number] #### [facility] [address] [place] [address] CHEMISTRYOrdered By: SYSTEM SYSTEM on 02-25-2024 HCG.beta subunit Qn 123 m[IU]/mL High 1 - 3 mIU/mL [facility] Comment on above: Result Comment: 'F N ON < 1 - 3' ' 0.2 - 1 WEEK = 5 TO 50' ' 1 - 2 WEEKS = 50 - 500' ' 2 - 3 WEEKS = 100 - 5000' ' 3 - 4 WEEKS = 500 - 29888' ' 4 - 5 WEEKS = 1000 - 48199' ' 5 - 6 WEEKS = 77523 - 327818' ' 6 - 8 WEEKS = 67816 - 599283' ' 8 - 12 WEEKS = 83612 - 758139' [id number] 02-25-2024 HbA1c (Bld) [Mass fraction] 6.0 % High <=5.9 [facility] Comment on above: Performed By: #### 7 [id number] #### [facility] [address] [place] [address] HIV Screen 4th Generation wR fxon 02-24-2024 HIV 1+2 Ab+HIV1 p24 Ag IA Ql Non-Reactive Invalid Interpretation Code Non Reactive [facility] Comment on above: Result Comment: HIV- 1/HIV-2 antibodies and HIV-1 p24 antigen were NOT detected. There is no laboratory evidence of HIV infection. HIV Negative Performed at: [address] [id number] PhD Jd Montano Performed By: #### 9 [id number] #### [facility] [address] [place] [address] [facility] [place] 02-23-2024 HCG.beta subunit Qn 52 m[IU]/mL High 1-3 [facility] Comment on above: Result Comment: 'F N ON < 1 - 3' ' 0.2 - 1 WEEK = 5 TO 50' ' 1 - 2 WEEKS = 50 - 500' ' 2 - 3 WEEKS = 100 - 5000' ' 3 - 4 WEEKS = 500 - 19221' ' 4 - 5 WEEKS = 1000 - 08599' ' 5 - 6 WEEKS = 17405 - 786309' ' 6 - 8 WEEKS = 20381 - 698132' ' 8 - 12 WEEKS = 80311 - 890923' Performed By: #### 2 [id number] #### [facility] [address] [place] [address] CHEMISTRYOrdered By: SYSTEM SYSTEM on 02-23-2024 Cholesterol [Mass/Vol] 225 mg/dL High 120 - 200 mg/dL [facility] Cholesterol in HDL [Mass/Vol] 40 mg/dL Invalid Interpretation Code [facility] Comment on above: Result Comment: '>= 60 LOW RISK' '<= 40 HIGH RISK' Cholesterol in LDL [Mass/Vol] 171 mg/dL High <=129mg/dL [facility] Cholesterol in VLDL [Mass/Vol] 42 mg/dL High 7 - 40 mg/dL [facility] HCG.beta subunit Qn 52 m[IU]/mL High 1 - 3 mIU/mL [facility] Comment on above: Result Comment: 'F N ON < 1 - 3' ' 0.2 - 1 WEEK = 5 TO 50' ' 1 - 2 WEEKS = 50 - 500' ' 2 - 3 WEEKS = 100 - 5000' ' 3 - 4 WEEKS = 500 - 79321' ' 4 - 5 WEEKS = 1000 - 64369' ' 5 - 6 WEEKS = 07678 - 881471' ' 6 - 8 WEEKS = 72538 - 822404' ' 8 - 12 WEEKS = 57738 - 587792' Triglyceride [Mass/Vol] 212 mg/dL High <=149mg/dL Remisol Chem TSH Qn 5.68 m[IU]/L High 0.34 - 5.60 mcIU/mL [facility] CHEMISTRYOrdered By: Chelsey Price on 02-23-2024 HbA1c (Bld) [Mass fraction] 5.9 % Normal <=5.9% [facility] ChemAutoSS [id number] 02-23-2024 HbA1c (Bld) [Mass fraction] 5.9 % Normal <=5.9 [facility] Comment on above: Performed By: #### 7 [id number] #### [facility] [address] [place] [address] Lipid Panelon 02-23-2024 Cholesterol [Mass/Vol] 225 mg/dL High 120-200 [facility] Comment on above: Performed By: #### 2 [id number] #### [facility] [address] [place] [address] Cholesterol in HDL [Mass/Vol] 40 mg/dL Invalid Interpretation Code [facility] Comment on above: Result Comment: '>= 60 LOW RISK' '<= 40 HIGH RISK' Performed By: #### 2 [id number] #### [facility] [address] [place] [address] Cholesterol in LDL [Mass/Vol] 171 mg/dL High <=129 [facility] Comment on above: Performed By: #### 2 [id number] #### [facility] [address] [place] [address] Cholesterol in VLDL [Mass/Vol] 42 mg/dL High 7-40 [facility] Comment on above: Performed By: #### 2 [id number] #### [facility] [address] [place] [address] Triglyceride [Mass/Vol] 212 mg/dL High <=149 [facility] Comment on above: Performed By: #### 2 [id number] #### [facility] [address] [place] [address] TSHon 02-23-2024 TSH Qn 5.68 m[IU]/L High 0.34-5.60 [facility] Comment on above: Performed By: #### 2 [id number] #### [facility] [address] [place] [address] Ambulatory Visit Summaryon 1 Ambulatory Visit Summary Ambulatory Visit Summary MADHU RENDON :1985 Visit Date:02/05/2024 Ambulatory Visit Instructions Your Diagnosis Acute bronchitis due to other specified organisms BMI 35.0-35.9,adult Obesity Antiphospholipid syndrome Gestational diabetes Well adult exam Your Care Team Attending Physician - Evans CASAS DO, FAAFP Primary Care Physician - Evans CASAS DO, FAAFP This Is Your Medications List Contact prescribing physician if questions or concerns albuterol (Albuterol (Eqv-ProAir HFA) 90 mcg/inh inhalation aerosol) azithromycin (azithromycin 250 mg Tab 5-day Dose Pack (Z-Jonny)) enoxaparin (Lovenox 40 mg/0.4 mL Injection) ergocalciferol (Vitamin D) metformin (MetFORMIN (Eqv-Glucophage XR) 500 mg oral tablet, extended release) Procedures Performed Biopsy of breast (06/14/2013), Extraction of wisdom tooth (2006), endoscopy for ovarian cysts to drain. Discharge Vitals Temperature (Oral) 36.7 ?C Heart Rate (Peripheral) 76 Respiratory Rate 16 Blood Pressure 122/70 Height 168 cm Height 66 in Weight 100.8 kg Weight 221.76 lb BMI 35.71 What to do next Scheduled Follow-Up Appointments Sunday 11:40 AM EST With: Evans CASAS DO, FAAFP Where: [facility] [address], [place] [address]- You Need to Schedule the Following Appointments Follow Up with Evans CASAS DO, FAAFP, FAM, PED When: In 3 months Where: [address], [place] [address]- You Need to Complete the Following HgbA1c, Blood, Routine collect, *Est. 02/05/24 +/- 21 day(s), Order for future visit, Lab Collect, Gestational diabetes, Print Label By Order Location HgbA1c, Blood, Routine collect, *Est. 05/07/24 +/- 21 day(s), Order for future visit, Lab Collect, Gestational diabetes, Print Label By Order Location HgbA1c, Blood, Routine collect, *Est. 08/05/24 +/- 21 day(s), Order for future visit, Lab Collect, Gestational diabetes, Print Label By Order Location HgbA1c, Blood, Routine collect, *Est. 11/04/24 +/- 21 day(s), Order for future visit, Lab Collect, Gestational diabetes, Print Label By Order Location HIV Screen 4th Generation wRfx, Blood, Routine collect, 02/05/24, Order for future visit, Lab Collect, Well adult exam, Print Label By Order Location Medications What How Much When Why Instructions Unchanged albuterol (Albuterol (Eqv-ProAir HFA) 90 mcg/ inh inhalation aerosol) 2 Puffs Inhalation Every 6 hours Community acquired pneumonia Contact prescribing physician if questions or concerns Unchanged azithromycin (azithromycin 250 mg Tab 5-day Dose Pack (Z-Jonny)) 1 Packets By Mouth As Directed Community acquired pneumonia Duration: 5 Days as directed on package labeling Contact prescribing physician if questions or concerns Unchanged enoxaparin (Lovenox 40 mg/ 0.4 mL Injection) 40 Milligram Subcutaneous Every 24 hours Contact prescribing physician if questions or concerns Unchanged ergocalciferol (Vitamin D) 2,000 International unit By Mouth Every week Contact prescribing physician if questions or concerns Unchanged metformin (MetFORMIN (Eqv-Glucophage XR) 500 mg oral tablet, extended release) 2 Tablets By Mouth Every day Contact prescribing physician if questions or concerns Allergies Milk Products (Illness) ciprofloxacin (Numbness and tingling of skin, Nausea) Problems Ongoing - Any problem that you are currently receiving treatment for. Acute bronchitis due to other specified organisms Antiphospholipid syndrome Blood pressure elevated without history of HTN BMI 35.0-35.9,adult Cold intolerance COVID-19 vaccine dose declined Deviated septum Dry mouth Dysfunction of right eustachian tube Dyshidrotic eczema Elevated blood pressure reading Environmental allergies Fatigue Gestational diabetes H/O: CVA H/O: hypothyroidism History of asthma History of COVID-19 History of gestational diabetes History of kidney stones Hx of iron deficiency anemia Hyperventilation syndrome Hypoglycemia Increased urinary frequency Inhalation of noxious fumes Iron deficiency Morbid obesity Nasal polyps Non-smoker Obesity NEETA (obstructive sleep apnea) Other sleep disorders Palpitations Paresthesia of bilateral legs Pollen allergies Pre-diabetes Right lower quadrant pain Right ovarian cyst Salivary gland swelling Snoring Systemic viral illness Weakness Well adult exam Historical - Any problem that you are no longer receiving treatment for. Abdominal pain Acute URI Anxiety and depression Bloody stools BMI 37.0-37.9, adult Class 1 obesity with body mass index (BMI) of 34.0 to 34.9 in adult Dizziness Dysuria Family history of anemia Family history of ovarian cyst SOB (shortness of breath) Spontaneous miscarriage Suspected COVID-19 virus infection Vaginal marlee (more content not included)... Normal [facility] Family Medicine Office/Clini c Noteon 02-05-2024 Family Medicine Office/Clinic Note Family Medicine Office/Clinic Note Chief Complaint Patient here for a follow up from on 02/01 for pneumonia. History of Present Illness Patient here for a follow up from on 02/01 for pneumonia. FDLMP 1-2 weeks ago, 10 days late, one before that was 5 days earlier and breast feeding one time per day. I am better, no SOB reported Breast feeding Patient is here for follow-up on Diabetes. How often are you checking your blood sugars? _q day What are your average readings? _115-136 Do you have low blood sugar readings/symptoms? _No Do you have high blood sugar readings/symptoms? No_ Are you compliant with your diet? For the most part _ Do you exercise? Yes Are you compliant with your medications or having difficulty affording your medications? yes and no issues Do you have any of the following symptoms? Vision problems? No Sexual dysfunction? No GI-Nausea/committing/bloat ing? No Lightheadedness? No Paresthesias, Ulcerations or sores? No Review of Systems PHQ Score Initial Depression Screen Score: 0 SCORE ROS - Provider Constitutional: no fever, no chills, no sweats, no weakness. Skin: no Jaundice, no rash, no lesions, no petechiae. ENMT: no ear pain, no sore throat, no congestion, no hoarseness. Respiratory: no shortness of breath, no cough, no orthopnea, no wheezing. Cardiovascular: no chest pain, no palpitations, no edema. Gastrointestinal: no nausea, no vomiting, no diarrhea, no GI bleeding.no constipationnoheartburn Genitourinary: no dysuria, no hematuria, no discharge, no pain.nofreq/urgency Musculoskeletal: no back pain, no trauma.nojoint pain Neurologic: no headache, no dizziness, no numbness, no weakness. Psychiatric: no sleeping problems, no irritability, no mood swings/depression. Heme/Lymph: no bleeding tendency, no bruising tendency, no petechiae, no swollen lymph nodes no Allergy/Imunology no seasonal allergies, no food allergies, no recurrent infections, no impaired immunity. Additional ROS info: Except as noted in the above Review of Systems and in the History of Present Illness all other systems have been reviewed and are negative or noncontributory. Physical Exam Vitals & Measurements T: 36.7 ?C(Oral) HR: 76(Peripheral) RR: 16 BP: 122/70 SpO2: 99% HT: 66 in HT: 168 cm WT: 100.8 kg WT: 221.76 lb BMI: 35.71 General: Well developed, well nourished, in no acute distress Mouth: Mucous membranes moist. Normal oropharynx, and posterior pharynx without lesions or exudates. Tongue normal Neck: Neck supple. No masses or palpable cervical nodes. Trachea midline. Thyroid without nodules, masses, tenderness, or enlargement Lungs: Normal respiratory effort and clear to auscultation Cardio: Regular rate and rhythm, normal S1 and S2, no murmur, no rub Abdomen: Soft, non-distended, non-tender. no G/R/S/Masses Musculoskeletal: No deformity or scoliosis noted. Normal range of motion. Joints normal. No erythema, edema, effusion, or ecchymosis Extremity: No clubbing, cyanosis, edema, or deformity, with normal ROM in both upper and lower bilateral extremities Neurologic: Grossly normal Skin: No rashes, ulcerations, or suspicious lesions Mental Status: Alert and oriented x3. Normal mood and affect Assessment/Plan 1. Acute bronchitis due to other specified organisms (J20.8: Acute bronchitis due to other specified organisms) Marked improvement with Z-Jonny and albuterol per med rec: Urine test negative 2. BMI 35.0-35.9,adult (Z68.35: Body mass index [BMI] 35.0-35.9, adult) The standard range for ages 18 and older is >=18.5 and < 25 kg/m2. Your BMI today was above this range, this falls in the overweight to obese category and there are medical benefits to weight loss. We can offer counselling, referral, and/or medical support in addressing this problem. Your BMI and weight management will be followed at subsequent visits. 3. Obesity (E66.9: Obesity, unspecified) Diet and exercise BMI goal of 25 4. Antiphospholipid syndrome (D68.61: Antiphospholipid syndrome) Lovenox 40 mg subcu, continue to follow-up with technical solutions director 5. 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 Well adult exam (Z00.00: Encounter for general adult medical examination without abnormal findings) HIV screen with her next A1c Ordered: HIV Screen 4th Generation wRfx HIV Screen 4th Generation wRfx Lipid Panel Total time spent preparing the chart, conducting of the encounter with the patient and family and time spent documenting, reviewing, and ordering tests was 30 minutes. Follow-up With When Contact Information Evans CASAS DO, FAAFP, CHRIS, PED In 3 months [address] [facility], [place] [address]- Additional Instructions: Patient Education Acute Bronchitis, Adult Problem List/Past Medical History Ongoing Acute (more content not included)... Normal [facility] Comment on above: Result Comment: Elec tronically Signed By: Evans CASAS DO, FAAFP\.br\Date and Time Signed: 02/05/24 14:44 EDT Ambulatory Visit Summaryon 1 Ambulatory Visit Summary Ambulatory Visit Summary MADHU RENDON :1985 Visit Date:02/02/2024 Ambulatory Visit Instructions Your Diagnosis Community acquired pneumonia Your Care Team Attending Physician - Anni Bernstein MD Primary Care Physician - Evans CASAS DO, FAAFP This Is Your Medications List albuterol (Albuterol (Eqv-ProAir HFA) 90 mcg/inh inhalation aerosol) azithromycin (azithromycin 250 mg Tab 5-day Dose Pack (Z-Jonny)) Contact prescribing physician if questions or concerns enoxaparin (Lovenox 40 mg/0.4 mL Injection) ergocalciferol (Vitamin D) metformin (MetFORMIN (Eqv-Glucophage XR) 500 mg oral tablet, extended release) Procedures Performed Biopsy of breast (06/14/2013), Extraction of wisdom tooth (2006), endoscopy for ovarian cysts to drain. Discharge Vitals Temperature (Oral) 36.7 ?C Heart Rate (Peripheral) 98 Blood Pressure 121/84 Height 168 cm Height 66 in Weight 101.1 kg Weight 222.42 lb BMI 35.82 Medications What How Much When Why Instructions New albuterol (Albuterol (Eqv-ProAir HFA) 90 mcg/ inh inhalation aerosol) 2 Puffs Inhalation Every 6 hours Community acquired pneumonia Refills: 5 Pickup at [facility] 1985 New azithromycin (azithromycin 250 mg Tab 5-day Dose Pack (Z-Jonny)) 1 Packets By Mouth As Directed Community acquired pneumonia Duration: 5 Days as directed on package labeling Pickup at [facility] 1985 Unchanged enoxaparin (Lovenox 40 mg/ 0.4 mL Injection) 40 Milligram Subcutaneous Every 24 hours Contact prescribing physician if questions or concerns Unchanged ergocalciferol (Vitamin D) 2,000 International unit By Mouth Every week Contact prescribing physician if questions or concerns Unchanged metformin (MetFORMIN (Eqv-Glucophage XR) 500 mg oral tablet, extended release) 2 Tablets By Mouth Every day Contact prescribing physician if questions or concerns Pharmacy Information [facility]: [address] [place] [id number] [phone] Allergies Milk Products (Illness) ciprofloxacin (Numbness and tingling of skin, Nausea) Problems Ongoing - Any problem that you are currently receiving treatment for. Antiphospholipid syndrome Blood pressure elevated without history of HTN BMI 37.0-37.9, adult Cold intolerance COVID-19 vaccine dose declined Deviated septum Dry mouth Dysfunction of right eustachian tube Dyshidrotic eczema Elevated blood pressure reading Environmental allergies Fatigue Gestational diabetes H/O: CVA H/O: hypothyroidism History of asthma History of COVID-19 History of gestational diabetes History of kidney stones Hx of iron deficiency anemia Hyperventilation syndrome Hypoglycemia Increased urinary frequency Inhalation of noxious fumes Iron deficiency Morbid obesity Nasal polyps Non-smoker Obesity NEETA (obstructive sleep apnea) Other sleep disorders Palpitations Paresthesia of bilateral legs Pollen allergies Pre-diabetes Right lower quadrant pain Right ovarian cyst Salivary gland swelling Snoring Systemic viral illness Weakness Historical - Any problem that you are no longer receiving treatment for. Abdominal pain Acute URI Anxiety and depression Bloody stools Class 1 obesity with body mass index (BMI) of 34.0 to 34.9 in adult Dizziness Dysuria Family history of anemia Family history of ovarian cyst SOB (shortness of breath) Spontaneous miscarriage Suspected COVID-19 virus infection Vaginal tabitha Patient Survey You may receive a survey via text or e-mail asking about your office visit. Please share your experience with us by completing your survey. We appreciate your feedback and thank you for choosing us for your care. Normal [facility] Family Medicine Office/Clini c Noteon 02-02-2024 Family Medicine Office/Clinic Note Family Medicine Office/Clinic Note Chief Complaint SOB and cough HPI Staff 38 yr old female here for possible pneumonia. states her son has pneumonia. Symptoms started- Headache- yes Body aches- yes Earache- yes both right worse Runny/stuffy nose- yes Problem with Smell- no Problem with Taste- no Sore throat- yes Cough- yes productive with green/bloody mucus Scratchy tickly throat- yes Chest symptoms- SOB and posterior lung pain WHITE- no Orthopnea- no Lung Hx asthma, bronchitis, chest colds- bronchitis and mild asthma Fever/chills- fever last night GI symptoms- nausea COVID exposure- no History of Present Illness MADHU RENDON is a 38 Years White Female presenting [facility] with body aches and productive cough x3 days +sob, flank chest wall pain, sore throat, headache, chest tightness dark yellow with mild mucous production son recently diagnosed with pneumonia hx of mild intermittent asthma does not use inhalers Review of Systems PHQ Score Initial Depression Screen Score: 0 SCORE Negative except as above Physical Exam Vitals & Measurements T: 36.7 ?C(Oral) HR: 98(Peripheral) BP: 121/84 SpO2: 99% HT: 66 in HT: 168 cm WT: 101.1 kg WT: 222.42 lb BMI: 35.82 Gen: No acute distress, sitting comfortably in chair HEENT: Posterior pharynx slightly erythematous, moist mucous membranes, TMs and external ear canals normal, no sinus tenderness, no tonsillar enlargement Cardio: RRR, no murmur/rubs/gallops Resp: +Crackles bilateral lower lung bases, mild expiratory wheezing in lower lung bases Assessment/Plan 1. Community acquired pneumonia (J18.9: Pneumonia, unspecified organism) albuterol inhaler prescribed, take q4h prn azithromycin x5 days prescribed take tylenol or motrin prn drink plenty of fluids Ordered: albuterol, 2 puff(s), Inhalation, q6hr, 1 EA, Refill(s) 5, [facility], 168, cm, 02/02/24 14:43:00 EDT, Height/Length Dosing, 101.1, kg, 02/02/24 14:43:00 EDT, Weight Dosing azithromycin, = 1 packet(s), Oral, As Directed, as directed on package labeling, X 5 day(s), # 6 tab(s), Refills(s) 0, Pharmacy: [facility] 1985, 168, cm, 02/02/24 14:43:00 EDT, Height/Length Dosing, 101.1, kg, 02/02/24 14:43:00 EDT, Weight Dosing 2. BMI 35.0-35.9,adult (Z68.35: Body mass index [BMI] 35.0-35.9, adult) The standard range for ages 18 and older is >=18.5 and < 25 kg/m2. Your BMI today was above this range, this falls in the overweight to obese category and there are medical benefits to weight loss. We can offer counselling, referral, and/or medical support in addressing this problem. Your BMI and weight management will be followed at subsequent visits. 3. Non-smoker (Z78.9: Other specified health status) stable 4. Obesity (E66.9: Obesity, unspecified) increase whole foods, decrease processed foods exercise at least 2.5 hours weekly Follow-up With When Contact Information Anni Bernstein MD, FAM, MED Only if needed [address] [place] [phone] Additional Instructions: Problem List/Past Medical History Ongoing Antiphospholipid syndrome Blood pressure elevated without history of HTN BMI 35.0-35.9,adult BMI 37.0-37.9, adult Cold intolerance COVID-19 vaccine dose declined Deviated septum Dry mouth Dysfunction of right eustachian tube Dyshidrotic eczema Elevated blood pressure reading Environmental allergies Fatigue Gestational diabetes H/O: CVA H/O: hypothyroidism History of asthma History of COVID-19 History of gestational diabetes History of kidney stones Hx of iron deficiency anemia Hyperventilation syndrome Hypoglycemia Increased urinary frequency Inhalation of noxious fumes Iron deficiency Morbid obesity Nasal polyps Non-smoker Obesity NEETA (obstructive sleep apnea) Other sleep disorders Palpitations Paresthesia of bilateral legs Pollen allergies Pre-diabetes Right lower quadrant pain Right ovarian cyst Salivary gland swelling Snoring Systemic viral illness Weakness Historical Abdominal pain Acute URI Anxiety and depression Bloody stools Class 1 obesity with body mass index (BMI) of 34.0 to 34.9 in adult Dizziness Dysuria Family history of anemia Family history of ovarian cyst SOB (shortness of breath) Spontaneous miscarriage Suspected COVID-19 virus infection Vaginal tabitha Procedure/Surgical History Biopsy of breast (06/14/2013), Extraction of wisdom tooth (2006), endoscopy for ovarian cysts to drain. Medications Albuterol (Eqv-ProAir HFA) 90 mcg/inh inhalation aerosol, 2 puff(s), Inhalation, q6hr, 5 refills azithromycin 250 mg Tab 5-day Dose Pack (Z-Jonny), 1 packet(s), Oral, As Directed Lovenox 40 mg/0.4 mL Injection, 40 mg, SubCutaneous, q24hr MetFORMIN (Eqv-Glucophage XR) 500 mg oral tablet, extended release, 1000 mg= 2 tab(s), Oral, Daily Vitamin D, 2000 International_Unit (more content not included)... Normal [facility] Comment on above: Result Comment: Elec tronically Signed By: Anni Bernstein MD\.br\Date and Time Signed: 02/02/24 15:03 EDT CBC W Auto Differential pane l (Bld)on 01-02-2024 Basophils (Bld) [#/Vol] 10*3/uL Normal <0.11 [facility] Comment on above: Order Comment: Speci men Type: BLOOD SPECIMEN Ordering Facility: [facility] Address: [address] [place] [address] Performed By: #### 5 0190-8, 2132-9, 2276-4, 2284-8 #### [facility] CLIA [id number] [address] [place] [address] [place] [address] [place] Basophils/100 WBC (Bld) 0.3 % Normal [facility] Comment on above: Order Comment: Speci men Type: BLOOD SPECIMEN Ordering Facility: [facility] Address: [address] [place] [address] Performed By: #### 5 0190-8, 2131-12, 4, 2283-11 #### [facility] CLIA [id number] [address] [place] [address] [place] Differential cell count method Nom (Bld) Auto Normal [facility] Comment on above: Order Comment: Speci men Type: BLOOD SPECIMEN Ordering Facility: [facility] Address: [address] [place] [address] Performed By: #### 5 0190-8, 2131-12, 2275-07, 2283-11 #### [facility] CLIA [id number] [address] [place] [address] [place] Eosinophils (Bld) [#/Vol] 0.07 10*3/uL Normal <0.46 [facility] Comment on above: Order Comment: Speci men Type: BLOOD SPECIMEN Ordering Facility: [facility] Address: [address] [place] [address] Performed By: #### 5 0190-8, 2131-12, 2275-07, 2283-11 #### [facility] CLIA [id number] [address] [place] [address] [place] Eosinophils/100 WBC (Bld) 0.9 % Normal [facility] Comment on above: Order Comment: Speci men Type: BLOOD SPECIMEN Ordering Facility: [facility] Address: [address] [place] [address] Performed By: #### 5 0190-8, 2131-12, 2275-07, 2283-11 #### [facility] CLIA [id number] [address] [place] [address] [place] Erythrocyte distribution width (RBC) [Ratio] 13.3 % Normal 11.5-15.0 [facility] Comment on above: Order Comment: Speci men Type: BLOOD SPECIMEN Ordering Facility: [facility] Address: [address] [place] [address] Performed By: #### 5 0190-8, 9, 4, 8 #### [facility] CLIA [id number] [address] [place] [address] [place] Hematocrit (Bld) [Volume fraction] 38.5 % Normal 36.0-46.0 [facility] Comment on above: Order Comment: Speci men Type: BLOOD SPECIMEN Ordering Facility: [facility] Address: [address] [place] [address] Performed By: #### 5 0190-8, 9, 4, 2283-11 #### [facility] CLIA [id number] [address] [place] [address] [place] Hemoglobin (Bld) [Mass/Vol] 13.6 g/dL Normal 11.5-15.5 [facility] Comment on above: Order Comment: Speci men Type: BLOOD SPECIMEN Ordering Facility: [facility] Address: [address] [place] [address] Performed By: #### 5 0190-8, 9, 4, 2283-11 #### [facility] CLIA [id number] [address] [place] [address] [place] Immature granulocytes (Bld) [#/Vol] 0.03 10*3/uL Normal <0.10 [facility] Comment on above: Order Comment: Speci men Type: BLOOD SPECIMEN Ordering Facility: [facility] Address: [address] [place] [address] Performed By: #### 5 0190-8, 9, 4, 2283-11 #### [facility] CLIA [id number] [address] [place] [id number] [address] [place] Immature granulocytes/100 WBC (Bld) 0.4 % Normal [facility] Comment on above: Order Comment: Speci men Type: BLOOD SPECIMEN Ordering Facility: [facility] Address: [address] [place] [address] Performed By: #### 5 0190-8, 9, 2275-4, 8 #### [facility] CLIA [id number] [address] [place] [address] [place] Lymphocytes (Bld) [#/Vol] 3.06 10*3/uL Normal 1.00-4.00 [facility] Comment on above: Order Comment: Speci men Type: BLOOD SPECIMEN Ordering Facility: [facility] Address: [address] [place] [address] Performed By: #### 5 0190-8, 9, 4, 8 #### [facility] CLIA [id number] [address] [place] [address] [place] Lymphocytes/100 WBC (Bld) 39.0 % Normal [facility] Comment on above: Order Comment: Speci men Type: BLOOD SPECIMEN Ordering Facility: [facility] Address: [address] [place] [address] Performed By: #### 5 0190-8, 9, 4, 8 #### [facility] CLIA [id number] [address] [place] [address] [place] MCH (RBC) [Entitic mass] 30.8 pg Normal 26.0-34.0 [facility] Comment on above: Order Comment: Speci men Type: BLOOD SPECIMEN Ordering Facility: [facility] Address: [address] [place] [address] Performed By: #### 5 0190-8, 9, 2275-4, 8 #### [facility] CLIA [id number] [address] [place], [place] [address] [place] MCHC (RBC) [Mass/Vol] 35.3 g/dL Normal 30.5-36.0 [facility] Comment on above: Order Comment: Speci men Type: BLOOD SPECIMEN Ordering Facility: [facility] Address: [address] [place] [address] Performed By: #### 5 0190-8, 9, 2275-07, 2283-11 #### [facility] CLIA [id number] [address] [place] [address] [place] MCV (RBC) [Entitic vol] 87.3 fL Normal 80.0-100.0 [facility] Comment on above: Order Comment: Speci men Type: BLOOD SPECIMEN Ordering Facility: [facility] Address: [address] [place] [address] Performed By: #### 5 0190-8, 9, 2275-07, 2283-11 #### [facility] CLIA [id number] [address] [place] [address] [place] Monocytes (Bld) [#/Vol] 0.50 10*3/uL Normal <0.87 [facility] Comment on above: Order Comment: Speci men Type: BLOOD SPECIMEN Ordering Facility: [facility] Address: [address] [place] [address] Performed By: #### 5 0190-8, 9, 2275-07, 2283-11 #### [facility] CLIA [id number] [address] [place] [address] [place] Monocytes/100 WBC (Bld) 6.4 % Normal [facility] Comment on above: Order Comment: Speci men Type: BLOOD SPECIMEN Ordering Facility: [facility] Address: [address] [place] [address] Performed By: #### 5 0190-8, 9, 2275-07, 2283-11 #### [facility] CLIA [id number] [address] [place], [place] [address] [place] Neutrophils (Bld) [#/Vol] 4.17 10*3/uL Normal 1.45-7.50 [facility] Comment on above: Order Comment: Speci men Type: BLOOD SPECIMEN Ordering Facility: [facility] Address: [address] [place] [address] Performed By: #### 5 0190-8, 9, 2275-07, 2283-11 #### [facility] CLIA [id number] [address] [place] [address] [place] Neutrophils/100 WBC (Bld) 53.0 % Normal [facility] Comment on above: Order Comment: Speci men Type: BLOOD SPECIMEN Ordering Facility: [facility] Address: [address] [place] [address] Performed By: #### 5 0190-8, 9, 2275-07, 2283-11 #### [facility] CLIA [id number] [address] [place] [address] [place] Nucleated RBC (Bld) [#/Vol] 10*3/uL Normal <0.01 [facility] Comment on above: Order Comment: Speci men Type: BLOOD SPECIMEN Ordering Facility: [facility] Address: [address] [place] [address] Performed By: #### 5 0190-8, 9, 2275-07, 8 #### [facility] CLIA [id number] [address] [place] [address] [place] Nucleated RBC/100 WBC (Bld) [Ratio] 0.0 /100 WBC Normal [facility] Comment on above: Order Comment: Speci men Type: BLOOD SPECIMEN Ordering Facility: [facility] Address: [address] [place] [address] Performed By: #### 5 0190-8, 9, 2275-07, 2283-11 #### [facility] CLIA [id number] [address] [place], [place] [address] [place] Platelet mean volume (Bld) [Entitic vol] 9.8 fL Normal 9.0-12.7 [facility] Comment on above: Order Comment: Speci men Type: BLOOD SPECIMEN Ordering Facility: [facility] Address: [address] [place] [address] Performed By: #### 5 0190-8, 9, 4, 2283-11 #### [facility] CLIA [id number] [address] [place] [address] [place] Platelets (Bld) [#/Vol] 330 10*3/uL Normal 150-400 [facility] Comment on above: Order Comment: Speci men Type: BLOOD SPECIMEN Ordering Facility: [facility] Address: [address] [place] [address] Performed By: #### 5 0190-8, 9, 2275-07, 2283-11 #### [facility] CLIA [id number] [address] [place] [address] [place] RBC (Bld) [#/Vol] 4.41 10*6/uL Normal 3.90-5.20 [facility] Comment on above: Order Comment: Speci men Type: BLOOD SPECIMEN Ordering Facility: [facility] Address: [address] [place] [address] Performed By: #### 5 0190-8, 9, 2275-07, 2283-11 #### [facility] CLIA [id number] [address] [place], [place] [address] [place] WBC (Bld) [#/Vol] 7.85 10*3/uL Normal 3.70-11.00 [facility] Comment on above: Order Comment: Speci men Type: BLOOD SPECIMEN Ordering Facility: [facility] Address: [address] [place] [address] Performed By: #### 5 0190-8, 9, 2276-4, 2284-8 #### [facility] CLIA [id number] [address] [place] [address] [place] CNOVSPon 01-02-2024 CNOVSP Visit (SP) Office ([facility]) -- MADHU RENDON ([id number]) 1985 F Date Time Provider Department 01/02/24 1:45 PM SALVADOR CALIX During your visit today, we recorded the following information about you: Temperature Pulse Respiration Blood pressure 97.1 degrees 91/minute 16/minute 128/81 Weight Height Last Period 102.7 kg 1.677 m 12/22/23 Salvador Calix MD 01/04/2024 12:54 PM Signed NAME: Madhu Rendon CLINIC NO.: [id number] DATE OF SERVICE: January 02, 2024 ([place]on) Some elements in this clinic note that are critical to medical decision making have been carefully reviewed and included from a prior clinic note dated: June 15, 2023 (Levon) Additional Clinicians involved in Mahdu Rendon's care: Jorge Mcwilliams, Humaira Gaviria, Dr. Boothe CC: hypercoag [facility]. ASSESSMENT: 38 year old woman presents with a prior history of CVA in 2016 and an antiphospholipid antibody that was identified much later in 2018. These were found in [place], [place]. I don't have access to these results. Patient believes that she has anticardiolipin antibodies but wasn't sure. She has been on Plavix for approximately year and a half and had bled heavily on aspirin preceding this. She currently has no evidence of active thrombosis. We had discussed the potential etiology of antiphospholipid antibodies in the context of her symptoms which preceded her diagnosis by approximately 2 years presenting as a CVA. At some point in time she had a vW disease workup but we don't have that specific data from prior workup. After discussion with her neurologist, Dr. Jorge Monge, we put her on prophylactic dose Lovenox throughout her prior but is now again and at 25 weeks. Had difficulty with associated diabetes. Recalls having had a target-like rash shortly before presenting to [place] in 2016 with headaches and was diagnosed with a CVA. - She saw Dr. Baugh but no relevant conclusion was made. She remains on Lovenox - still breast feeding. No clinical need to recheck her APL Ab or Cardiolipin Ab's as results will not change our treatment plan. PLAN: Triage to call iron results Continue Lovenox - patient prefers 40 mg (rather than rec 80mg) Encouraged her to reconsider Take B12 supplement in the form of a sublingual tablet RTC in 3 months Labs same day Vitamin D, TSH, Calcium with CMP _- ____ HPI: Updated Visit, January 02, 2024: Madhu returns today for a follow up. She reports a low grade fever and facial redness that is sore to the touch occurring every month since June for about a few days at a time. In October and November, she reports nerve pain and itching/burning skin as well. She is able to successfully treat with ice packs. She is unable to find a direct correlation between her symptoms although speculates it is a hormonal reaction. She denies spending significant time in the sun prior to her symptoms, although does mention she felt fatigued after a day outside. Workup for inflammatory Lupus has been negative in the past. She was seen in the ER in August for abdominal cramping, workup was unrevealing. She has also had right ear and sinus pain since January - MRI was negative. Numbness and vision changes occur rarely now. I encouraged her to continue supplemental B12 at home. Iron studies are pending - consider iron replacement if indicated. Updated Visit, June 15, 2023: Madhu returns today with her youngest two children. She is still breast feeding. Numbness and vision changes both have subsided, she still plans to see Dr. Monge soon. When she had a stroke in [place], she had symptoms up to a month before: uncontrollable headache, BP was elevated, knee stiffness, and blurry vision. Right facial drooping and difficulty speaking sent her to the hospital. She continues to take vitamins. Updated Visit, May 31, 2023: Virtual Visit Shadow over right eye and some numbness of her face. Feels like she's getting itchy under her skin - intermittent electric-shocks . Abdominal contractions that feel like labor but not low in the pelvis. Weight is unchanged and she is having trouble losing weight. Feels she has a lot of fullness in her neck/throat. Could not operate her video. Updated Visit, March 19, 2023: Virtual Visit: Doing ok but is getting sick. Was not able to connect video. Vitamin D is low. Having trouble with blood sugars Baby and all kids doing well. Still breast feeding. Updated Visit, December 22, 2022: Virtual visit Had a few more bloody bowel movements after we spoke last time. But resolved more than a month ago. Labs are good - no need for iron . B12 is on the lower end of normal. Otherwise and I think unrelated - weak, uri (more content not included)... Normal [facility] Sisi 01-02-2024 [facility] MADHU RENDON ([id number]) 1985 F Date Time Provider Department 01/02/[address] [facility] visit today, we recorded the following information about you: Marleen Smith 01/02/2024 2:[address] Luna is requesting Triage to call Madhu with her FE results. Thank you Valeri Yan RN 01/07/2024 8:30 AM Signed No need for IV iron per CC'd chart from Dr. Calix. Attempt to call pt to notify. Left detailed message on, along with call back number on voicemail. Valeri Yan RN Allergies As of Date: 01/02/2024 Noted Allergy Reaction CIPROFLOXACIN 05/19/2019 14 - Other: See Comments 16 - Unknown Comments: Dizziness, weakness sweating CIPROFLOXACIN-FLUOCINOLONE 05/19/2019 14 - Other: See Comments Comments: Dizziness, weakness sweating LACTOSE 09/10/2017 8 - GI Upset Comments: Diarrhea SEASONAL ALLERGIES 05/05/2020 8 - GI Upset 14 - Other: See Comments LACTALBUMIN 05/25/2017 16 - Unknown 8 - GI Upset Comments: Crampy and gassy MILK 05/25/2017 14 - Other: See Comments Comments: Crampy and gassy Diarrhea Other reaction(s): GI Upset Crampy and gassy MILK CONTAINING PRODUCTS (DAIRY) 05/25/2017 14 - Other: See Comments Comments: Crampy and gassy Diarrhea Other reaction(s): GI Upset Crampy and gassy Date Reviewed: 01/02/2024 Reviewed by: Serina Dawson MA - Fully Assessed Reason for Visit: Results [95] Prescriptions as of 01/07/2024 - famotidine (PEPCID) 20 mg tablet Take 1 tablet by mouth once daily. To take prior to infusion - enoxaparin (LOVENOX) 40 mg/0.4 mL INJECT THE CONTENTS OF ONE SYRINGE (0.4 ML) SUBCUTANEOUSLY EVERY 24 HOURS - metFORMIN ER (GLUCOPHAGE XR) 500 mg 24 hr tablet - multivitamin tablet Take 1 tablet by mouth once daily. 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 Iron deficiency anemia of [O99.019, D*03/27/2022 Primary hypercoagulable state (HCC) [D68.59] 08/01/2022 CVA, old, speech/language deficit [I69.328] 08/01/2022 Encounter Status:Closed by VALERI YAN on 01/07/24 Normal [facility] Comprehensive metabolic 2000 panelon 01-02-2024 Albumin [Mass/Vol] 4.9 g/dL Normal 3.9-4.9 [facility] Comment on above: Order Comment: Speci men Type: BLOOD SPECIMEN Ordering Facility: [facility] Address: [address] [place] [address] Performed By: #### 5 0190-8, 2131-9, 2275-4, 8 #### [facility] CLIA [id number] [address] [place] [address] [place] ALP [Catalytic activity/Vol] 71 U/L Normal 34-123 [facility] Comment on above: Order Comment: Speci men Type: BLOOD SPECIMEN Ordering Facility: [facility] Address: [address] [place] [address] Performed By: #### 5 0190-8, 2131-9, 2275-4, 8 #### [facility] CLIA [id number] [address] [place] [address] [place] ALT [Catalytic activity/Vol] 22 U/L Normal 7-38 [facility] Comment on above: Order Comment: Speci men Type: BLOOD SPECIMEN Ordering Facility: [facility] Address: [address] [place] [address] Performed By: #### 5 0190-8, 2131-9, 2275-4, 8 #### [facility] CLIA [id number] [address] [place] [address] [place] Anion gap [Moles/Vol] 12 mmol/L Normal 8-15 [facility] Comment on above: Order Comment: Speci men Type: BLOOD SPECIMEN Ordering Facility: [facility] Address: [address] [place] [address] Performed By: #### 5 0190-8, 2131-9, 2275-4, 228-8 #### [facility] CLIA [id number] [address] [place] [address] [place] AST [Catalytic activity/Vol] 18 U/L Normal 13-35 [facility] Comment on above: Order Comment: Speci men Type: BLOOD SPECIMEN Ordering Facility: [facility] Address: [address] [place] [address] Performed By: #### 5 0190-8, 2131-9, 2275-4, 2283-8 #### [facility] CLIA [id number] [address] [place] [address] [place] Bilirubin [Mass/Vol] 0.3 mg/dL Normal 0.2-1.3 [facility] Comment on above: Order Comment: Speci men Type: BLOOD SPECIMEN Ordering Facility: [facility] Address: [address] [place] [address] Performed By: #### 5 0190-8, 2131-9, 2275-4, 2283-8 #### [facility] CLIA [id number] [address] [place] [address] [place] Calcium [Mass/Vol] 9.9 mg/dL Normal 8.5-10.2 [facility] Comment on above: Order Comment: Speci men Type: BLOOD SPECIMEN Ordering Facility: [facility] Address: [address] [place] [address] Performed By: #### 5 0190-8, 2131-9, 2275-4, 2283-8 #### [facility] CLIA [id number] [address] [place] [address] [place] Chloride [Moles/Vol] 100 mmol/L Normal 98-107 [facility] Comment on above: Order Comment: Speci men Type: BLOOD SPECIMEN Ordering Facility: [facility] Address: [address] [place] [address] Performed By: #### 5 0190-8, 9, 2275-07, 2283-11 #### [facility] CLIA [id number] [address] [place] [address] [place] CO2 [Moles/Vol] 24 mmol/L Normal 22-30 [facility] Comment on above: Order Comment: Speci men Type: BLOOD SPECIMEN Ordering Facility: [facility] Address: [address] [place] [address] Performed By: #### 5 0190-8, 9, 2275-07, 2283-11 #### [facility] CLIA [id number] [address] [place] [address] [place] Creatinine [Mass/Vol] 0.84 mg/dL Normal 0.58-0.96 [facility] Comment on above: Order Comment: Speci men Type: BLOOD SPECIMEN Ordering Facility: [facility] Address: [address] [place] [address] Performed By: #### 5 0190-8, 9, 2275-07, 2283-11 #### [facility] CLIA [id number] [address] [place] [address] [place] Creatinine and Glomerular filtration rate.predicted panel (S/P/Bld) 91 mL/min/1.73m??? Normal >=60 [facility] Comment on above: Order Comment: Cesar men Type: BLOOD SPECIMEN Ordering Facility: [facility] Address: [address] [place] [address] Result Comment: Hawa mated Glomerular Filtration Rate (eGFR) is calculated using the 2020 CKD-EPI creatinine equation. This equation utilizes serum creatinine, sex, and age as parameters. The creatinine assay has traceable calibration to isotope dilution-mass spectrometry. Refer to KDIGO guidelines for clinical interpretation. In patients with unstable renal function, e.g. those with acute kidney injury, the eGFR may not accurately reflect actual GFR. Performed By: #### 5 0190-8, 2131-12, 2275-07, 2283-11 #### [facility] CLIA [id number] [address] [place] [address] [place] Glucose [Mass/Vol] 84 mg/dL Normal 74-99 [facility] Comment on above: Order Comment: Cesar redd Type: BLOOD SPECIMEN Ordering Facility: [facility] Address: [address] [place] [address] Result Comment: The [place] Diabetes [employer] (ADA) provides guidance for cutoff values for fasting glucose and random glucose. The ADA defines fasting as no caloric intake for at least 8 hours. Fasting plasma glucose results between 100 to 125 mg/dL indicate increased risk for diabetes (prediabetes). Fasting plasma glucose results greater than or equal to 126 mg/dL meet the criteria for diagnosis of diabetes. In the absence of unequivocal hyperglycemia, results should be confirmed by repeat testing. In a patient with classic symptoms of hyperglycemia or hyperglycemic crisis, random plasma glucose results greater than or equal to 200 mg/dL meet the criteria for diagnosis of diabetes. Reference: Standards of Medical Care in Diabetes 2016, [place] [employer]. Diabetes Care. 2016.39(Suppl 1). Performed By: #### 5 0190-8, 9, 2275-07, 2283-11 #### [facility] CLIA [id number] [address] [place] [address] [place] Potassium [Moles/Vol] 3.5 mmol/L Low 3.7-5.1 [facility] Comment on above: Order Comment: Cesar redd Type: BLOOD SPECIMEN Ordering Facility: [facility] Address: [address] [place] [address] Performed By: #### 5 0190-8, 2131-12, 2275-07, 2283-11 #### [facility] CLIA [id number] [address] [place] [address] [place] Protein [Mass/Vol] 7.3 g/dL Normal 6.3-8.0 [facility] Comment on above: Order Comment: Cesar redd Type: BLOOD SPECIMEN Ordering Facility: [facility] Address: [address] [place], [place] [address] Performed By: #### 5 0190-8, 2131-9, 2275-4, 8 #### [facility] CLIA [id number] [address] [place] [address] [place] Sodium [Moles/Vol] 136 mmol/L Normal 136-144 [facility] Comment on above: Order Comment: Speci men Type: BLOOD SPECIMEN Ordering Facility: [facility] Address: [address] [place] [address] Performed By: #### 5 0190-8, 2131-9, 2275-4, 8 #### [facility] CLIA [id number] [address] [place] [address] [place] Urea nitrogen [Mass/Vol] 8 mg/dL Normal 7-21 [facility] Comment on above: Order Comment: Speci men Type: BLOOD SPECIMEN Ordering Facility: [facility] Address: [address] [place] [address] Performed By: #### 5 0190-8, 2131-9, 2275-4, 8 #### [facility] CLIA [id number] [address] [place] [address] [place] Ferritin SerPl-mCncon 2023 Ferritin [Mass/Vol] 261.0 ng/mL High 14.7-205.1 [facility] Comment on above: Order Comment: Speci men Type: BLOOD SPECIMEN Ordering Facility: [facility] Address: [address] [place] [address] Performed By: #### 5 0190-8, 2131-9, 2275-, 2283-8 #### [facility] CLIA [id number] [address] [place] [address] [place] Folate SerPl-mCncon 01-02-20 24 Folate [Mass/Vol] 17.2 ng/mL Normal >4.7 [facility] Comment on above: Order Comment: Speci men Type: BLOOD SPECIMEN Ordering Facility: [facility] Address: [address] [place] [address] Performed By: #### 5 0190-8, 2131-12, 2275-07, 2283-11 #### [facility] CLIA [id number] [address] [place] [address] [place] Iron and Iron binding capaci ty panelon 01-02-2024 Iron [Mass/Vol] 66 ug/dL Normal 41-186 [facility] Comment on above: Order Comment: Speci men Type: BLOOD SPECIMEN Ordering Facility: [facility] Address: [address] [place] [address] Performed By: #### 5 0190-8, 2131-12, 2275-07, 2283-11 #### [facility] CLIA [id number] [address] [place] [address] [place] Iron binding capacity [Mass/Vol] 354 ug/dL Normal 232-386 [facility] Comment on above: Order Comment: Speci men Type: BLOOD SPECIMEN Ordering Facility: [facility] Address: [address] [place] [address] Performed By: #### 5 0190-8, 2131-12, 2275-07, 2283-11 #### [facility] CLIA [id number] [address] [place] [address] [place] Iron/TIBC [Molar ratio] 18.6 % Normal 15.0-57.0 [facility] Comment on above: Order Comment: Speci men Type: BLOOD SPECIMEN Ordering Facility: [facility] Address: [address] [place] [address] Performed By: #### 5 0190-8, 2131-12, 2275-07, 2283-11 #### [facility] CLIA [id number] [address] [place] [address] [place] Vit B12 SerPl-mCncon 024 Cobalamin (Vitamin B12) [Mass/Vol] 460 pg/mL Normal 232-1245 [facility] Comment on above: Order Comment: Speci men Type: BLOOD SPECIMEN Ordering Facility: [facility] Address: [address] [place] [address] Performed By: #### 5 0190-8, 2132-9, 2276-4, 2284-8 #### [facility] CLIA [id number] [address] [place] [address] CNPNon 12-17-2023 CNPN Telephone (HEMASA) -- MADHU RENDON ([id number]) 1985 F Date Time Provider Department 12/17/23 NAGA JOHNSON During your visit today, we recorded the following information about you: Naga Johnson RN 12/17/2023 11:39 AM Signed Pt reports onset of low grade fever (99.7), on and off since 12/13/23. Feels flushed, at time like pins/needles in my extremities, and burning eyes. She is asking if this is a possible delayed reaction to 3rd dose of Iron rec'd 11/29/23? Pt had rec'd IV steroid/pepcid for mild reaction with 2nd dose. She reports her son also came home last week with fever >100 . She also states there is a good chance I may be again, I just haven't taken a test. Pt encouraged to test for verification. Pharm/Fely: possible delayed reaction to IV Iron 11/29/23? Salvador Calix MD 12/17/2023 12:53 PM Signed No - sounds like she has some infectious process going on - would rec PCP. Naga Johnson RN 12/17/2023 12:57 PM Signed Pt updated and will follow up with PCP. Denies further questions, needs or concerns at this time for our provider. Naga Johnson RN Allergies As of Date: 12/17/2023 Noted Allergy Reaction CIPROFLOXACIN 05/19/2019 14 - Other: See Comments 16 - Unknown Comments: Dizziness, weakness sweating CIPROFLOXACIN-FLUOCINOLONE 05/19/2019 14 - Other: See Comments Comments: Dizziness, weakness sweating LACTOSE 09/10/2017 8 - GI Upset Comments: Diarrhea SEASONAL ALLERGIES 05/05/2020 8 - GI Upset 14 - Other: See Comments LACTALBUMIN 05/25/2017 16 - Unknown 8 - GI Upset Comments: Crampy and gassy MILK 05/25/2017 14 - Other: See Comments Comments: Crampy and gassy Diarrhea Other reaction(s): GI Upset Crampy and gassy MILK CONTAINING PRODUCTS (DAIRY) 05/25/2017 14 - Other: See Comments Comments: Crampy and gassy Diarrhea Other reaction(s): GI Upset Crampy and gassy Date Reviewed: 06/15/2023 Reviewed by: Serina Dawson MA - Fully Assessed Prescriptions as of 12/17/2023 - famotidine (PEPCID) 20 mg tablet Take 1 tablet by mouth once daily. To take prior to infusion - enoxaparin (LOVENOX) 40 mg/0.4 mL INJECT THE CONTENTS OF ONE SYRINGE (0.4 ML) SUBCUTANEOUSLY EVERY 24 HOURS - metFORMIN ER (GLUCOPHAGE XR) 500 mg 24 hr tablet - multivitamin tablet Take 1 tablet by mouth once daily. 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 EXAMINATION: MRI Brain w/o Contrast HISTORY: Stroke, Z86.79. Right-sided headache. Blurred vision. History of antiphospholipid syndrome. COMPARISON: MRI 04/14/2020. TECHNIQUE: Routine noncontrast brain MRI protocol including diffusion and gradient echo images. RESULT: MR BRAIN: Acute Change: There is no evidence of restricted diffusion to suggest an acute infarct. Hemorrhage: No evidence of prior parenchymal hemorrhage on the gradient echo images. Mass Effect / Mass Lesion: No evidence of an intracranial mass or extra-axial fluid collection. No significant mass effect. Chronic Change: Single punctate hyperintense T2//FLAIR focus within the subcortical left parietal region, nonspecific, chronic, and unchanged. Parenchyma: No significant volume loss for age. Ventricles: Normal caliber and morphology. Skull Base: Hypothalamic and pituitary region are grossly normal. Craniocervical junction is normal. No significant marrow replacement process. Vasculature: Major intracranial arterial structures, and dural venous sinuses show typical flow void, suggesting patency by spin echo criteria. Other: The visualized paranasal sinuses are clear. Mastoid air cells are clear. The orbits are unremarkable. The extracranial soft tissues are unremarkable. Report Ordering Provider: Monica Saba FINAL REPORT Dictated: 12/11/2023 3:11 pm Pablo Barker MD Signed (Electronic Signature): 12/11/2023 3:11 pm Signed by: Pablo Barker MD Transcribed by: LINDY Technologist: ALEXSANDRA [facility] Cortisolon 12-08-2023 Cortisol [Mass/Vol] 12.5 microgram/dL Invalid Interpretation Code 6.2-19.4 [facility] Comment on above: Result Comment: Yolanda davis Note: The reference interval and flagging for this test is for an AM collection. If this is a PM collection please use: Cortisol PM: 2.3-11.9 Performed at: [address] [id number] PhD Jd Montano Performed By: #### 2 [id number] #### [facility] [address] [place] [address] T3 Freeon 12-08-2023 Free T3 [Mass/Vol] 2.5 pg/mL Invalid Interpretation Code 2.0-4.4 [facility] Comment on above: Result Comment: Perf ormed at: [facility] [address] [place], [place] [id number] PhD Jd Montano Performed By: #### 2 [id number] #### [facility] [address] [place] [address] Amylaseon 12-06-2023 Amylase [Catalytic activity/Vol] 38 U/L Normal 25-157 [facility] Comment on above: Performed By: #### 2 [id number] #### [facility] [address] [place] [address] CHEMISTRYOrdered By: SYSTEM SYSTEM on 12-06-2023 Amylase [Catalytic activity/Vol] 38 U/L Normal 25 - 157 unit/L Remisol Chem Cobalamin (Vitamin B12) [Mass/Vol] 328 pg/mL Normal 50 - 1500 pg/mL Remisol Chem CRP [Mass/Vol] 0.2 mg/dL Normal <=1.9mg/dL Remisol Ch em Free T4 [Mass/Vol] 0.58 ng/dL Normal 0.58 - 1. 64 ng/dL Remisol Chem TSH Qn 4.97 m[IU]/L Normal 0.34 - 5.60 mcIU/mL Remisol Chem CRPon 12-06-2023 CRP [Mass/Vol] 0.2 mg/dL Normal <=1.9 [facility] Comment on above: Performed By: #### 2 [id number] #### [facility] [address] [place] [address] Free T4on 12-06-2023 Free T4 [Mass/Vol] 0.58 ng/dL Normal 0.58-1.64 [facility] Comment on above: Performed By: #### 2 [id number] #### [facility] [address] [place] [address] HEMATOLOGYOrdered By: Isha Zheng on 12-06-2023 ESR (Bld) [Velocity] 18 mm/h Normal 0 - 34 mm/hr [facility] HemeAutoSS Sed Rate Automatedon 024 ESR (Bld) [Velocity] 18 mm/h Normal 0-34 [facility] Comment on above: Performed By: #### 1 [id number] #### [facility] [address] [place] [address] TSHon 12-06-2023 TSH Qn 4.97 m[IU]/L Normal 0.34-5.60 [facility] Comment on above: Performed By: #### 2 [id number] #### [facility] [address] [place] [address] Vit B12on 12-06-2023 Cobalamin (Vitamin B12) [Mass/Vol] 328 pg/mL Normal 50-1500 [facility] Comment on above: Performed By: #### 2 [id number] #### [facility] [address] [place] [address] CNPNon 11-15-2023 CNPN Telephone (HEMTSA) -- MADHU RENDON ([id number]) 1985 F Date Time Provider Department 11/15/23 [employer] DELGADO HEMMIRTHA During your visit today, we recorded the following information about you: Samuel Sanabria 11/15/2023 9:19 AM Signed 1st report of treatment-Non oncology regimen (Venofer) Patient holds Medicaid coverage and there is no available FA at this time. Allergies As of Date: 11/15/2023 Noted Allergy Reaction CIPROFLOXACIN 05/19/2019 14 - Other: See Comments 16 - Unknown Comments: Dizziness, weakness sweating CIPROFLOXACIN-FLUOCINOLONE 05/19/2019 14 - Other: See Comments Comments: Dizziness, weakness sweating LACTOSE 09/10/2017 8 - GI Upset Comments: Diarrhea SEASONAL ALLERGIES 05/05/2020 8 - GI Upset 14 - Other: See Comments LACTALBUMIN 05/25/2017 16 - Unknown 8 - GI Upset Comments: Crampy and gassy MILK 05/25/2017 14 - Other: See Comments Comments: Crampy and gassy Diarrhea Other reaction(s): GI Upset Crampy and gassy MILK CONTAINING PRODUCTS (DAIRY) 05/25/2017 14 - Other: See Comments Comments: Crampy and gassy Diarrhea Other reaction(s): GI Upset Crampy and gassy Date Reviewed: 06/15/2023 Reviewed by: Serina Dawson MA - Fully Assessed Prescriptions as of 11/15/2023 - enoxaparin (LOVENOX) 40 mg/0.4 mL INJECT THE CONTENTS OF ONE SYRINGE (0.4 ML) SUBCUTANEOUSLY EVERY 24 HOURS - metFORMIN ER (GLUCOPHAGE XR) 500 mg 24 hr tablet - multivitamin tablet Take 1 tablet by mouth once daily. 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 Patient c/o fatigue, cold intolerance, diarrhea (on and off). Signs and Symptoms Chills: yes Cough: yes Ear complaints: yes Fever: no Headache: yes Sinus pain/pressure: yes History of Present Illness Patient of Dr Casas, here today for a visit for: right ear issues and many complaints. -I have reviewed and discussed the HPI (staff) with the patient today. -Information was verified and is correct. -Additional information provided if needed. CHRONIC ISSUES - January HAS a referral for ENT - end of month appointment- stopped Flonase recently. CIPRODEX ear drops- in the past, anti-inflammation, helped with use. no pain, no fevers. then started to bother her again. check bone right sided. also gets reflux sometimes. sinus pressure on the right side , nothing coming out, nose bleeding mild right sided. no teeth issues, feeling feverish, sweats and chills. not constant . recently stopped breast feeding at night. cold at night. sinus issues. THROAT DRAINAGE BOTHERING HER> feels like a cut or ulcer in her neck tongue pain/ salivary gland issues. rheumatology has seen patient in the past. autoimmune testing. ++ FATIGUE related, cold all the time. sometimes diarrhea, sometimes burning pain , has a neurology specialist- MRI brain> :? sinus vs brain scan needed. ALSO PALPITATIONS- Holter ECHO 2017- increasing , lightheadedness and many other c/o today Review of Systems PHQ Score Initial Depression Screen Score: 0 SCORE Physical Exam Vitals & Measurements T: 36.3 ?C(Temporal Artery) HR: 85(Peripheral) RR: 16 BP: 122/74 SpO2: 99% HT: 66 in HT: 168 cm WT: 104.5 kg WT: 229.9 lb BMI: 37.03 General: alert, no acute distress, well appearing, _pleasant obese younger female pleasant no distress Skin: warm, dry, intact Head: no trauma, normocephalic Neck: Trachea midline, no adenopathy, no tenderness Eye: normal conjunctiva, sclera clear, _PERRLA ENMT: TM's clear narrow canals noted bilaterally, oral mucosa moist, no pharyngeal erythema or exudate, normal dentition, submandibular mild tenderness to palpation near the salivary gland, no notable stone palpated in the floor of the mouth, moist mucous membranes, normal dentition, no tenderness to palpation over the maxillary or frontal sinuses Cardiovascular: regular rate and rhythm, normal peripheral perfusion, no edema Respiratory: Lungs CTA, respirations non labored Chest wall: no deformity, non tender Gastrointestinal: soft, non distended, no tenderness, no guarding. Back: No tenderness, Normal ROM, Normal alignment. Extremities: no deformity, no trauma Neurological: oriented x 4, LOC appropriate for age, CN II-XII intact, motor strength equal & normal bilaterally, sensation equal & normal bilaterally, speech normal Psychiatric: cooperative? , affect appropriate for age? , normal? judgement, normal? psychiatric thoughts. Assessment/Plan 1. Fatigue (R53.83: Other fatigue) May need sleep study in the future, may need Holter monitor in the future Check thyroid and labs as detailed below, reviewed most recent labs from August 2022 Chronic and worsening Follow-up next month Ordered: Sedimentation Rate Automated Vitamin B12 Level 2. Salivary gland swelling (R60.0: Localized edema) Will check amylase, CRP MRI of brain without and MRI face orbit neck without check for any acute collusion occlusions masses or sinusitis or infections, suck on sour candies increase fluid intake No indication for antibiotics at this time considered them however Follow-up with ENT as previously arranged Ordered: Amylase Level C-Reactive Protein MRI Brain w/o Contrast MRI Orbit Face Neck w/o contrast 3. Palpitations (R00.2: Palpitations) Will order Holter monitor at next appointment, chronic, worsening, heart rate can go up to 180s at time bradycardia noted sometimes down into the 50s with rest with mild symptoms, need another appointment to discuss further testing including Holter monitor and sleep study, follow-up with Dr. jean Ordered: Cortisol Free T4 T3 Free Thyroid Stimulating Hormone 4. Cold intolerance (R68.89: Other general symptoms and signs) Check cortisol free T4 free T3 TSH Increase activity Chronic and worsening Ordered: Cortisol Free T4 T3 Free Thyroid Stimulating Hormone 5. 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 Pre-diabetes (R73.03: Prediabetes) Last A1c Continue metformin Nutrition: - Maintain optimal weight - Calorie restriction - Plant-based diet; high polyunsatur (more content not included)... [facility] Comment on above: Result Comment: Elec tronically Signed By: Jayant YEBOAH, Monica Judge.cedrick\Date and Time Signed: 11/09/23 15:56 EDT Sisi 11-05-2023 CNPN Telephone (NCCAP) -- MADHU RENDON ([id number]) 1985 F Date Time Provider Department 11/05/[address] [facility] During your visit today, we recorded the following information about you: Harjit Haskins 11/05/2023 12:47 PM Signed ----- Message from Naga Johnson RN sent at 11/05/2023 11:53 AM EDT ----- ----- Message ----- From: Salvador Calix MD Sent: 11/05/2023 11:33 AM EDT To: [facility] Triage Pool; [facility] Clerical Pool Perry Isidro - looks like you need Iron again. Dr. Middleton Cancel her virtual set for 11/05 and 11/19 - infuse 3 doses weekly iron and then see her in 8 weeks in person - labs same day. Thanks! Harjit Haskins 11/05/2023 12:49 PM Signed Appointment tomorrow cancelled. Andres tried calling her this morning and was unable to get a hold of her. Will keep trying patient to schedule for Iron. Harjit Kimble 11/05/2023 4:28 PM Addendum Patient has been scheduled for Venofer on 11/14, 11/21 and 11/28. Follow in in 8 weeks scheduled for 01/01. FELY: Patient has a couple questions. 1) Should she stop her oral iron that she takes once a day? 2) Since August, patient has had heart palpitations that she wanted to address with you. She states it started when she had per period. Her current symptoms include being ice cold, racing heart beat, sweaty and she's tired all day. Currently also stating she is on a blood thinner. Salvador Clay MD 11/05/2023 5:39 PM Signed Thanks Krystal - alphonse forward to Naga. She can still take her oral iron but I don't think it is helping too much. I really can't explain the palpitations but anemia could cause the cold feeling and fatigue. The racing heart beat, palpitations (same thing) may be something else. The blood thinner can cause the feeling of cold but that is usually with coumadin (warfarin). I hope that helps - maybe giving you the iron infusions will get you feeling better. Best, Naga Flores, RN 11/06/2023 8:26 AM Signed Pt informed of Fely's message and denies any questions, needs or concerns at this time. She will call PCP for additional workup of palpitations, should the IV iron not help, or they worsen. Discussed reasons for immediate evaluation; chest pain, shortness of breath, lightheadedness, dizziness, etc. Appointments verified. Naga Johnson RN Allergies As of Date: 11/05/2023 Noted Allergy Reaction CIPROFLOXACIN 05/19/2019 14 - Other: See Comments 16 - Unknown Comments: Dizziness, weakness sweating CIPROFLOXACIN-FLUOCINOLONE 05/19/2019 14 - Other: See Comments Comments: Dizziness, weakness sweating LACTOSE 09/10/2017 8 - GI Upset Comments: Diarrhea SEASONAL ALLERGIES 05/05/2020 8 - GI Upset 14 - Other: See Comments LACTALBUMIN 05/25/2017 16 - Unknown 8 - GI Upset Comments: Crampy and gassy MILK 05/25/2017 14 - Other: See Comments Comments: Crampy and gassy Diarrhea Other reaction(s): GI Upset Crampy and gassy MILK CONTAINING PRODUCTS (DAIRY) 05/25/2017 14 - Other: See Comments Comments: Crampy and gassy Diarrhea Other reaction(s): GI Upset Crampy and gassy Date Reviewed: 06/15/2023 Reviewed by: Serina Dawson MA - Fully Assessed Reason for Visit: Appointment [186] Prescriptions as of 11/06/2023 - enoxaparin (LOVENOX) 40 mg/0.4 mL INJECT THE CONTENTS OF ONE SYRINGE (0.4 ML) SUBCUTANEOUSLY EVERY 24 HOURS - metFORMIN ER (GLUCOPHAGE XR) 500 mg 24 hr tablet - multivitamin tablet Take 1 tablet by mouth once daily. 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] 08/01/2022 Encounter Status:Closed by NAGA JOHNSON on 11/06/23 Normal [facility] 25([place])[facility] 25-hydroxyvitamin D3 [Mass/Vol] 30.5 ng/mL Low 31.0-80.0 [facility] Comment on above: Order Comment: Cesar redd Type: BLOOD SPECIMEN Ordering Facility: [facility] Address: [address] [place] [address] Performed By: #### 5 0190-8, 2132-9, 2276-4, 2284-8 #### [facility] CLIA [id number] [address] [place] [address] [id number] [address] [place] CBC W Auto Differential pane l (Bld)on 10-29-2023 Basophils (Bld) [#/Vol] 0.05 10*3/uL Normal <0.11 [facility] Comment on above: Order Comment: Speci tramaine Type: BLOOD SPECIMEN Ordering Facility: [facility] Address: [address] [place], [place] [address] Performed By: #### 5 0190-8, 2131-12, 2275-07, 2283-11 #### [facility] CLIA [id number] [address] [place] [address] [place] Basophils/100 WBC (Bld) 0.6 % Normal [facility] Comment on above: Order Comment: Speci men Type: BLOOD SPECIMEN Ordering Facility: [facility] Address: [address] [place] [address] Performed By: #### 5 0190-8, 2131-12, 2275-07, 2283-11 #### [facility] CLIA [id number] [address] [place] [address] [place] Differential cell count method Nom (Bld) Auto Normal [facility] Comment on above: Order Comment: Speci men Type: BLOOD SPECIMEN Ordering Facility: [facility] Address: [address] [place] [address] Performed By: #### 5 0190-8, 2131-12, 2275-07, 2283-11 #### [facility] CLIA [id number] [address] [place] [address] [place] Eosinophils (Bld) [#/Vol] 0.06 10*3/uL Normal <0.46 [facility] Comment on above: Order Comment: Speci men Type: BLOOD SPECIMEN Ordering Facility: [facility] Address: [address] [place] [address] Performed By: #### 5 0190-8, 2131-12, 2275-07, 2283-11 #### [facility] CLIA [id number] [address] [place] [address] [place] Eosinophils/100 WBC (Bld) 0.8 % Normal [facility] Comment on above: Order Comment: Speci men Type: BLOOD SPECIMEN Ordering Facility: [facility] Address: [address] [place] [address] Performed By: #### 5 0190-8, 2131-12, 2275-07, 2283-11 #### [facility] CLIA [id number] [address] [place] [address] [place] Erythrocyte distribution width (RBC) [Ratio] 13.2 % Normal 11.5-15.0 [facility] Comment on above: Order Comment: Speci men Type: BLOOD SPECIMEN Ordering Facility: [facility] Address: [address] [place] [address] Performed By: #### 5 0190-8, 2131-12, 2275-07, 2283-11 #### [facility] CLIA [id number] [address] [place] [address] [place] Hematocrit (Bld) [Volume fraction] 39.0 % Normal 36.0-46.0 [facility] Comment on above: Order Comment: Speci men Type: BLOOD SPECIMEN Ordering Facility: [facility] Address: [address] [place] [address] Performed By: #### 5 0190-8, 2131-12, 2275-07, 2283-11 #### [facility] CLIA [id number] [address] [place] [address] [place] Hemoglobin (Bld) [Mass/Vol] 12.9 g/dL Normal 11.5-15.5 [facility] Comment on above: Order Comment: Speci men Type: BLOOD SPECIMEN Ordering Facility: [facility] Address: [address] [place] [address] Performed By: #### 5 0190-8, 2131-12, 2275-07, 2283-11 #### [facility] CLIA [id number] [address] [place] [address] [place] Immature granulocytes (Bld) [#/Vol] 10*3/uL Normal <0.10 [facility] Comment on above: Order Comment: Speci men Type: BLOOD SPECIMEN Ordering Facility: [facility] Address: [address] [place] [address] Performed By: #### 5 0190-8, 9, 2275-4, 8 #### [facility] CLIA [id number] [address] [place] [address] [place] Immature granulocytes/100 WBC (Bld) 0.3 % Normal [facility] Comment on above: Order Comment: Speci men Type: BLOOD SPECIMEN Ordering Facility: [facility] Address: [address] [place] [address] Performed By: #### 5 0190-8, 9, 2275-4, 8 #### [facility] CLIA [id number] [address] [place] [address] [place] Lymphocytes (Bld) [#/Vol] 3.05 10*3/uL Normal 1.00-4.00 [facility] Comment on above: Order Comment: Speci men Type: BLOOD SPECIMEN Ordering Facility: [facility] Address: [address] [place] [address] Performed By: #### 5 0190-8, 9, 4, 2283-11 #### [facility] CLIA [id number] [address] [place] [address] [place] Lymphocytes/100 WBC (Bld) 38.3 % Normal [facility] Comment on above: Order Comment: Speci men Type: BLOOD SPECIMEN Ordering Facility: [facility] Address: [address] [place] [address] Performed By: #### 5 0190-8, 9, 4, 8 #### [facility] CLIA [id number] [address] [place] [address] [place] MCH (RBC) [Entitic mass] 29.2 pg Normal 26.0-34.0 [facility] Comment on above: Order Comment: Speci men Type: BLOOD SPECIMEN Ordering Facility: [facility] Address: [address] [place] [address] Performed By: #### 5 0190-8, 9, 4, 8 #### [facility] CLIA [id number] [address] [place] [address] [place] MCHC (RBC) [Mass/Vol] 33.1 g/dL Normal 30.5-36.0 [facility] Comment on above: Order Comment: Speci men Type: BLOOD SPECIMEN Ordering Facility: [facility] Address: [address] [place] [address] Performed By: #### 5 0190-8, 9, 4, 2283-11 #### [facility] CLIA [id number] [address] [place] [address] [place] MCV (RBC) [Entitic vol] 88.2 fL Normal 80.0-100.0 [facility] Comment on above: Order Comment: Speci men Type: BLOOD SPECIMEN Ordering Facility: [facility] Address: [address] [place] [address] Performed By: #### 5 0190-8, 2131-9, 2275-07, 2283-11 #### [facility] CLIA [id number] [address] [place] [address] [place] Monocytes (Bld) [#/Vol] 0.63 10*3/uL Normal <0.87 [facility] Comment on above: Order Comment: Speci men Type: BLOOD SPECIMEN Ordering Facility: [facility] Address: [address] [place] [address] Performed By: #### 5 0190-8, 2131-9, 2275-07, 2283-11 #### [facility] CLIA [id number] [address] [place] [address] [place] Monocytes/100 WBC (Bld) 7.9 % Normal [facility] Comment on above: Order Comment: Speci men Type: BLOOD SPECIMEN Ordering Facility: [facility] Address: [address] [place] [address] Performed By: #### 5 0190-8, 2131-9, 2275-4, 8 #### [facility] CLIA [id number] [address] [place] [address] [place] Neutrophils (Bld) [#/Vol] 4.15 10*3/uL Normal 1.45-7.50 [facility] Comment on above: Order Comment: Speci men Type: BLOOD SPECIMEN Ordering Facility: [facility] Address: [address] [place] [address] Performed By: #### 5 0190-8, 2131-9, 2275-07, 8 #### [facility] CLIA [id number] [address] [place] [address] [place] Neutrophils/100 WBC (Bld) 52.1 % Normal [facility] Comment on above: Order Comment: Speci men Type: BLOOD SPECIMEN Ordering Facility: [facility] Address: [address] [place] [address] Performed By: #### 5 0190-8, 2131-9, 2275-4, 8 #### [facility] CLIA [id number] [address] [place] [address] [place] Nucleated RBC (Bld) [#/Vol] 10*3/uL Normal <0.01 [facility] Comment on above: Order Comment: Speci men Type: BLOOD SPECIMEN Ordering Facility: [facility] Address: [address] [place] [address] Performed By: #### 5 0190-8, 2131-9, 2275-4, 8 #### [facility] CLIA [id number] [address] [place] [address] [place] Nucleated RBC/100 WBC (Bld) [Ratio] 0.0 /100 WBC Normal [facility] Comment on above: Order Comment: Speci men Type: BLOOD SPECIMEN Ordering Facility: [facility] Address: [address] [place], [place] [address] Performed By: #### 5 0190-8, 9, 2275-07, 2283-11 #### [facility] CLIA [id number] [address] [place] [address] [place] Platelet mean volume (Bld) [Entitic vol] 9.8 fL Normal 9.0-12.7 [facility] Comment on above: Order Comment: Speci men Type: BLOOD SPECIMEN Ordering Facility: [facility] Address: [address] [place] [address] Performed By: #### 5 0190-8, 9, 2275-07, 2283-11 #### [facility] CLIA [id number] [address] [place] [address] [place] Platelets (Bld) [#/Vol] 381 10*3/uL Normal 150-400 [facility] Comment on above: Order Comment: Speci men Type: BLOOD SPECIMEN Ordering Facility: [facility] Address: [address] [place] [address] Performed By: #### 5 0190-8, 2131-9, 2275-07, 2283-11 #### [facility] CLIA [id number] [address] [place] [address] [place] RBC (Bld) [#/Vol] 4.42 10*6/uL Normal 3.90-5.20 [facility] Comment on above: Order Comment: Speci men Type: BLOOD SPECIMEN Ordering Facility: [facility] Address: [address] [place] [address] Performed By: #### 5 0190-8, 2131-9, 2275-07, 2283-11 #### [facility] CLIA [id number] [address] [place] [address] [place] WBC (Bld) [#/Vol] 7.96 10*3/uL Normal 3.70-11.00 [facility] Comment on above: Order Comment: Speci men Type: BLOOD SPECIMEN Ordering Facility: [facility] Address: [address] [place] [address] Performed By: #### 5 0190-8, 9, 2275-4, 8 #### [facility] CLIA [id number] [address] [place] [address] [place] Calcium.ionized [Moles/Vol]o n 10-29-2023 Calcium.ionized (Bld) [Mass/Vol] 1.29 mmol/L Normal 1.08-1.30 [facility] Comment on above: Order Comment: Speci men Type: BLOOD SPECIMENOrdering Facility: [facility] Address: [address] [place] [address] Performed By: #### 1 995-0 ####[facility] [id number] [address] STATES OF [facility] Calcium.ionized adjusted to pH 7.4 (Bld) [Moles/Vol] 1.25 mmol/L Normal 1.08-1.30 [facility] Comment on above: Order Comment: Speci men Type: BLOOD SPECIMENOrdering Facility: [facility] Address: [address] [place] [address] Performed By: #### 1 995-0 ####[facility] [id number] [place] [address] [place] Comprehensive metabolic 2000 panelon 10-29-2023 Albumin [Mass/Vol] 4.7 g/dL Normal 3.9-4.9 [facility] Comment on above: Order Comment: Speci men Type: BLOOD SPECIMEN Ordering Facility: [facility] Address: [address] [place] [address] Performed By: #### 5 0190-8, 2131-12, 2275-4, 8 #### [facility] CLIA [id number] [address] [id number] [address] [place] ALP [Catalytic activity/Vol] 77 U/L Normal 34-123 [facility] Comment on above: Order Comment: Speci men Type: BLOOD SPECIMEN Ordering Facility: [facility] Address: [address] [place] [address] Performed By: #### 5 0190-8, 9, 2275-4, 8 #### [facility] CLIA [id number] [address] [place] [address] [place] ALT [Catalytic activity/Vol] 24 U/L Normal 7-38 [facility] Comment on above: Order Comment: Speci men Type: BLOOD SPECIMEN Ordering Facility: [facility] Address: [address] [place] [address] Performed By: #### 5 0190-8, 9, 4, 2283-11 #### [facility] CLIA [id number] [address] [place] [address] [place] Anion gap [Moles/Vol] 12 mmol/L Normal 8-15 [facility] Comment on above: Order Comment: Speci men Type: BLOOD SPECIMEN Ordering Facility: [facility] Address: [address] [place] [address] Performed By: #### 5 0190-8, 9, 4, 2283-11 #### [facility] CLIA [id number] [address] [place] [address] [place] AST [Catalytic activity/Vol] 20 U/L Normal 13-35 [facility] Comment on above: Order Comment: Speci men Type: BLOOD SPECIMEN Ordering Facility: [facility] Address: [address] [place] [address] Performed By: #### 5 0190-8, 9, 4, 8 #### [facility] CLIA [id number] [address] [place] [address] [place] Bilirubin [Mass/Vol] mg/dL Low 0.2-1.3 [facility] Comment on above: Order Comment: Speci men Type: BLOOD SPECIMEN Ordering Facility: [facility] Address: [address] [place] [address] Performed By: #### 5 0190-8, 9, 4, 8 #### [facility] CLIA [id number] [address] [place] [address] [place] Calcium [Mass/Vol] 9.8 mg/dL Normal 8.5-10.2 [facility] Comment on above: Order Comment: Speci men Type: BLOOD SPECIMEN Ordering Facility: [facility] Address: [address] [place] [address] Performed By: #### 5 0190-8, 2131-12, 2275-07, 2283-11 #### [facility] CLIA [id number] [address] [place] [address] [place] Chloride [Moles/Vol] 102 mmol/L Normal 98-107 [facility] Comment on above: Order Comment: Speci men Type: BLOOD SPECIMEN Ordering Facility: [facility] Address: [address] [place] [address] Performed By: #### 5 0190-8, 9, 4, 2283-11 #### [facility] CLIA [id number] [address] [place] [address] [place] CO2 [Moles/Vol] 23 mmol/L Normal 22-30 [facility] Comment on above: Order Comment: Speci men Type: BLOOD SPECIMEN Ordering Facility: [facility] Address: [address] [place] [address] Performed By: #### 5 0190-8, 9, 4, 2283-11 #### [facility] CLIA [id number] [address] [place] [address] [place] Creatinine [Mass/Vol] 0.86 mg/dL Normal 0.58-0.96 [facility] Comment on above: Order Comment: Cesar redd Type: BLOOD SPECIMEN Ordering Facility: [facility] Address: [address] [place] [address] Performed By: #### 5 0190-8, 9, 2275-4, 2283-11 #### [facility] CLIA [id number] [address] [place] [address] [place] Creatinine and Glomerular filtration rate.predicted panel (S/P/Bld) 89 mL/min/1.73m??? Normal >=60 [facility] Comment on above: Order Comment: Cesar redd Type: BLOOD SPECIMEN Ordering Facility: [facility] Address: [address] [place] [address] Result Comment: Hawa mated Glomerular Filtration Rate (eGFR) is calculated using the 2020 CKD-EPI creatinine equation. This equation utilizes serum creatinine, sex, and age as parameters. The creatinine assay has traceable calibration to isotope dilution-mass spectrometry. Refer to KDIGO guidelines for clinical interpretation. In patients with unstable renal function, e.g. those with acute kidney injury, the eGFR may not accurately reflect actual GFR. Performed By: #### 5 0190-8, 9, 2275-07, 2283-11 #### [facility] CLIA [id number] [address] [place] [address] [place] Glucose [Mass/Vol] 62 mg/dL Low 74-99 [facility] Comment on above: Order Comment: Cesar redd Type: BLOOD SPECIMEN Ordering Facility: [facility] Address: [address] [place] [address] Result Comment: The [place] Diabetes Association (ADA) provides guidance for cutoff values for fasting glucose and random glucose. The ADA defines fasting as no caloric intake for at least 8 hours. Fasting plasma glucose results between 100 to 125 mg/dL indicate increased risk for diabetes (prediabetes). Fasting plasma glucose results greater than or equal to 126 mg/dL meet the criteria for diagnosis of diabetes. In the absence of unequivocal hyperglycemia, results should be confirmed by repeat testing. In a patient with classic symptoms of hyperglycemia or hyperglycemic crisis, random plasma glucose results greater than or equal to 200 mg/dL meet the criteria for diagnosis of diabetes. Reference: Standards of Medical Care in Diabetes 2016, [place] [employer]. Diabetes Care. 2016.39(Suppl 1). Performed By: #### 5 0190-8, 9, 2275-4, 2283-11 #### [facility] CLIA [id number] [address] [place] [address] [place] Potassium [Moles/Vol] 4.4 mmol/L Normal 3.7-5.1 [facility] Comment on above: Order Comment: Cesar redd Type: BLOOD SPECIMEN Ordering Facility: [facility] Address: [address] [place] [address] Performed By: #### 5 0190-8, 2131-12, 4, 2283-11 #### [facility] CLIA [id number] [address] [place] [address] [place] Protein [Mass/Vol] 7.5 g/dL Normal 6.3-8.0 [facility] Comment on above: Order Comment: Cesar redd Type: BLOOD SPECIMEN Ordering Facility: [facility] Address: [address] [place] [address] Performed By: #### 5 0190-8, 2131-12, 2275-07, 2283-11 #### [facility] CLIA [id number] [address] [place] [address] [place] Sodium [Moles/Vol] 137 mmol/L Normal 136-144 [facility] Comment on above: Order Comment: Cesar redd Type: BLOOD SPECIMEN Ordering Facility: [facility] Address: [address] [place] [address] Performed By: #### 5 0190-8, 2131-12, 2275-07, 2283-11 #### [facility] CLIA [id number] [address] [place] [address] [place] Urea nitrogen [Mass/Vol] 10 mg/dL Normal 7-21 [facility] Comment on above: Order Comment: Speci tramaine Type: BLOOD SPECIMEN Ordering Facility: [facility] Address: [address] [place] [address] Performed By: #### 5 0190-8, 2-9, 6-4, 8 #### [facility] CLIA [id number] [address] [place] [address] [place] Ferritin SerPl-mCncon 2023 Ferritin [Mass/Vol] 62.7 ng/mL Normal 14.7-205.1 [facility] Comment on above: Order Comment: Specmoe redd Type: BLOOD SPECIMEN Ordering Facility: [facility] Address: [address] [place] [address] Performed By: #### 5 0190-8, 9, 4, 2283-11 #### [facility] CLIA [id number] [address] [place] [address] [place] Folate SerPl-mCncon 10-29-19 24 Folate [Mass/Vol] ng/mL Normal >4.7 [facility] Comment on above: Order Comment: Cesar redd Type: BLOOD SPECIMENOrdering Facility: [facility] Address: [address] [place] [address] Result Comment: A re sult of > 20 ng/mL is not necessarily indicative of a pathologic or treatable condition: it reflects a limitation of the test methodology. Assay reference range: 4.8 to 24.2 ng/mL. Suitable for detection of folate deficiency. Reference: Folate III (Folate III) [package insert V 1.0 [place]uan]. [facility], [place], [place]: February 2015. Performed By: #### 2 132-9, 2284-8, 2731-8 ####[facility] [id number] [place] [address] [place] Iron and Iron binding capaci ty panelon 10-29-2023 Iron [Mass/Vol] 51 ug/dL Normal 41-186 [facility] Comment on above: Order Comment: Speci men Type: BLOOD SPECIMEN Ordering Facility: [facility] Address: [address] [place] [address] Performed By: #### 5 0190-8, 9, 4, 2283-11 #### [facility] CLIA [id number] [address] [place] [address] [place] Iron binding capacity [Mass/Vol] 390 ug/dL High 232-386 [facility] Comment on above: Order Comment: Speci men Type: BLOOD SPECIMEN Ordering Facility: [facility] Address: [address] [place] [address] Performed By: #### 5 0190-8, 2131-12, 4, 2283-11 #### [facility] CLIA [id number] [address] [place] [address] [place] Iron/TIBC [Molar ratio] 13.1 % Low 15.0-57.0 [facility] Comment on above: Order Comment: Speci men Type: BLOOD SPECIMEN Ordering Facility: [facility] Address: [address] [place] [address] Performed By: #### 5 0190-8, 2131-12, 2275-07, 2283-11 #### [facility] CLIA [id number] [address] [place] [address] [place] PTH-Intact SerPl-mCncon 07-0 Parathyrin.intact [Mass/Vol] 57 pg/mL Normal 15-65 [facility] Comment on above: Order Comment: Speci men Type: BLOOD SPECIMENOrdering Facility: [facility] Address: [address] [place] [address] Performed By: #### 2 132-9, 2283-8, 2731-8 ####[facility] [id number] [place] [address] [place] Vit B12 SerPl-mCncon 024 Cobalamin (Vitamin B12) [Mass/Vol] 499 pg/mL Normal 232-1245 [facility] Comment on above: Order Comment: Speci men Type: BLOOD SPECIMENOrdering Facility: [facility] Address: [address] [place] [address] Performed By: #### 2 132-9, 2284-8, 2731-8 ####[facility] [id number] [employer] [address] [address] [place] Physician Referralon 024 Physician Referral [id number] Ambulatory Visit Summaryon 0 10-23-2023 Ambulatory Visit Summary MADHU RENDON :1985 Visit Date:10/23/2023 Ambulatory Visit Instructions Your Diagnosis Dysfunction of right eustachian tube Nasal polyps Deviated septum BMI 37.0-37.9, adult Obesity Your Care Team Attending Physician - Shirlene YEBOAH, Lourdes Baltazar Primary Care Physician - Evans CASAS DO, FAAFP This Is Your Medications List ciprofloxacin-dexamethason e otic (Ciprodex 0.3%-0.1% Susp-Otic) enoxaparin (Lovenox 40 mg/0.4 mL Injection) ergocalciferol (Vitamin D) fluticasone nasal (Flonase 0.05 mg/inh [place]) metformin (MetFORMIN (Eqv-Glucophage XR) 500 mg oral tablet, extended release) Procedures Performed Biopsy of breast (06/14/2013), Extraction of wisdom tooth (2006), endoscopy for ovarian cysts to drain. Discharge Vitals Temperature (Oral) 36.4 ?C Heart Rate (Peripheral) 86 Blood Pressure 122/60 Height 168 cm Height 66 in Weight 106.2 kg Weight 233.64 lb BMI 37.63 What to do next Scheduled Follow-Up Appointments Sunday 12:40 PM EDT With: Evans CASAS DO, FAAFP Where: [facility] Family Medicine Office/Clini c Noteon 10-23-2023 Family Medicine Office/Clinic Note Chief Complaint pt here for right ear drainage, onset January. comes and goes. ear is swollen, has drainage going into throat. History of Present Illness Madhu is a 38 yo female presenting today for acute visit PCP is Dr. Casas Pt reports symptoms started back in January and intermittent since then. Pt was told by ENT that she had multiple sinus polyps and deviated septum but never had recommended surgeries. She has been taking Flonase without relief since the Fall Pt reports they are experiencing: right ear drainage since Jan, right sided throat pain during episodes along with right sided facial tenderness Pt denies CP, SOB, wheezing, chest tightness, fever, chills, body aches, cough, congestion, runny nose, sinus pressure, sore throat, changes in taste/smell/appetite, n/v/d, abd pain, FISHER, fatigue, urinary changes, or dizziness at this time. Pt denies any known sick contacts, COVID+ case or recent travel at this time Pt has tried OTC remedies including: Flonase smoker: no Hx of deviated septum/sinus surgeries: yes: deviated septum and polyps - no surgeries Pt is currently Pt was ordered MRI of brain in May and has not had this yet. Review of Systems PHQ Score Initial Depression Screen Score: 0 SCORE Physical Exam Vitals & Measurements T: 36.4 ?C(Oral) HR: 86(Peripheral) BP: 122/60 SpO2: 99% HT: 66 in HT: 168 cm WT: 106.2 kg WT: 233.64 lb BMI: 37.63 General: Well developed, well nourished, in no acute distress Eyes: Bilateral PERRLA, conjunctivae and sclerae wnl, EOMs intact, lids without stye, chalazion, ect/extropion, ptosis, xanthelasma, blepharitis. No discharge to inner canthi.Negative for corneal abrasion or foreign bodies. Ears: bilateral external canals intact , no discharge. Bilateral tympanic membrane pearly ochoa and intact, light reflex present. No pain with manipulation of tragus and pinna bilaterally. Hearing grossly normal to conversational speech. Nose: No deformity, discharge, inflammation, or lesions. No congestion, no erythema; pink & moist turbinates; clear rhinorrhea. Mouth: mucous membranes pink, moist and intact. [place] posterior oropharynx, no palatal inflammation, uvula midline, no cobble-stoning, no enlarged tonsils, no tonsillar exudate, no ulcers, no active post nasal drip. tongue midline and wnl. Good dentition. Neck: Neck supple. No lymphadenopathy. Trachea midline. No thyroid, masses, tenderness, or enlargement noted. No bruit. Lungs: Normal respiratory effort and clear to auscultation Cardio: Regular rate and rhythm, normal S1 and S2, no murmur, no rub Abdomen: not assessed Musculoskeletal: No deformity or scoliosis noted. No vertebral tenderness. Normal range of motion. No vertebral point tenderness. Joints normal. No erythema, edema, effusion, crepitus, or ecchymosis. Straight leg raise negative Extremity: No clubbing, cyanosis, edema, or deformity. Normal ROM with upper and lower extremities, bilaterally. Neurologic: Cranial nerves II-XII grossly intact. motor strength equal & normal bilaterally, sensation equal & normal bilaterally. Gait normal. Skin: No rashes, ulcerations, or suspicious lesions Mental Status: Alert and oriented x3. Normal mood and affect Assessment/Plan 1. Dysfunction of right eustachian tube (H69.91: Unspecified Eustachian tube disorder, right ear) acute on chronic issue likely d/t chronic nasal polyps and deviated septum causing pressure on maxillary sinuses and eustachian tube no sx of AOM at this time. complete the MRI as ordered by neurology Stop Flonase for time being Ciprodex drops only if there is drainage and/or pain as directed - safe during Ordered: ciprofloxacin-dexamethason e otic, 4 drop(s), Otic, BID for 7 day(s), 7.5 mL, Refill(s) 0, [id number], 168, cm, 10/23/23 16:55:00 EDT, Height/Length Dosing, 106.2, kg, 10/23/23 16:55:00 EDT, Weight Dosing [facility] External Ambulatory Referral 2. Nasal polyps (J33.9: Nasal polyp, unspecified) pt reported - moved before previous ENT could perform surgery - submitted new referral at this time Ordered: [facility] External Ambulatory Referral 3. Deviated septum (J34.2: Deviated nasal septum) pt reported - moved before previous ENT could perform surgery - see #2 Ordered: [facility] External Ambulatory Referral 4. BMI 37.0-37.9, adult (Z68.37: Body mass index [BMI] 37.0-37.9, adult) The standard range for ages 18 and older is >=18.5 and < 25 kg/m2. Your BMI today was above this range, this falls in the overweight to obese category and there are medical benefits to weight loss. We can offer counselling, referral, and/or medical support in addressing this problem. Your BMI and weight management will be followed at subsequent visits. Ordered: ciprofloxacin-dexamethason e otic, 4 drop(s), Otic, BID for 7 day(s), 7.5 mL, Refill(s) 0, [facility]/pharmacy #[id number], 168, cm, 10/23/23 16:55:00 EDT, Height/Length Dosing, 106.2, kg, 10/23/23 16:55:00 EDT, Weight Dosing 5. Obesity ( (more content not included)... [facility] Comment on above: Result Comment: Elec tronically Signed By: Shirlene YEBOAH, Lourdes Baltazar\.br\Date and Time Signed: 10/23/23 17:13 EDT Patient Educationon 10-23-19 Patient Education ENT Deviated Septum The septum is the wall of firm tissue (cartilage) inside your nose that separates the hollow space (nasal cavity) between your nostrils. Normally, the septum is straight. It divides the nasal cavity into two parts. A deviated septum means this wall is not centered in the middle of the nasal cavity. A deviated septum can lead to stuffiness and other problems with the flow of air through your nose. It can also block your sinuses and prevent them from draining properly. Although rare, this can lead to repeated (chronic) sinus infections. Often, one side of the nose is affected more than the other. What are the causes? This condition may be caused by an injury to the face or nose, or a person may be born with the condition (congenital defect). What increases the risk? You are more likely to develop this condition if you participate in contact sports. What are the signs or symptoms? A mildly deviated septum may not cause any symptoms. You may notice stuffiness and congestion only when you have a cold. Common symptoms of a more serious deviated septum include: ? Difficulty breathing through the nose. ? Blockage in one or both sides of the nose. ? Constant nasal congestion or stuffy nose. ? Frequent nosebleeds. ? Headache or facial pain. ? Excess mucus at the back of the throat or nose (postnasal drip). ? Noisy breathing while sleeping. How is this diagnosed? This condition may be diagnosed based on: ? Your symptoms and a description of an injury. ? A physical exam of the outside and inside of your nose. Your health care provider may use an instrument to widen your nostril (nasal speculum) and a bright light to check the inside of your nose. You may be referred to a health care provider who specializes in ear, nose, and throat disorders (franchise broker, or ENT) for more tests and treatment. How is this treated? If your deviated septum is mild, you may not need treatment. However, you may need treatment: ? If you develop nasal congestion. Your health care provider may recommend decongestant, antihistamine, or topical steroid medicines. ? If the deviated septum leads to a sinus infection. You may be prescribed an antibiotic medicine to treat the infection. ? If you develop frequent sinus infections, which is uncommon, or have trouble breathing through your nose after using recommended medicines. You may need surgery to correct the deviated septum (septoplasty). Depending on the cause of your deviated septum, the procedure may be combined with sinus surgery or surgery to change the shape of your nose (rhinoplasty). Follow these instructions at home: ? Take qbmj-nvy-ilftxau and prescription medicines only as told by your health care provider. ? If you were prescribed an antibiotic, take it as told by your health care provider. Do not stop using the antibiotic even if you start to feel better. ? Perform nasal saline rinses, if told to do so by your health care provider. ? If you have trouble breathing through your nose at night, talk with your health care provider about ways to treat this. Contact a health care provider if: ? You have a painful sinus infection or a fever. ? You have sniffling, sneezing, or congestion that gets worse. ? You have changes in your vision. ? You have a severe headache that does not get better with treatment. ? You have symptoms that remain or get worse after treatment with antibiotics. ? You snore or sleep poorly. ? You have trouble breathing through your nose at night. Get help right away if: ? You have a nosebleed that does not stop after pressure has been applied for 10 minutes. Summary ? Having a deviated septum means that the wall that separates your nostrils is not centered and straight. ? A deviated septum can lead to stuffiness and other problems with the flow of air through your nose. ? A deviated septum may be caused by an injury to the face or nose, or a person may be born with the condition (congenital defect). ? If you develop chronic nasal congestion and stuffiness, or get frequent sinus infections due to a deviated septum, you may need to see a health care provider who specializes in ear, nose, and throat disorders (franchise broker, or ENT) for more tests and treatment. This information is not intended to replace advice given to you by your health care provider. Make sure you discuss any questions you have with your health care provider. Document Revised: 12/12/2021 Document Reviewed: 12/12/2021 [employer] Patient Education ? 2022 [employer]. Nasal Polyps Nasal polyps are growths that form in the nose. Inflammation in the nose or sinus openings can lead to changes in the tissue (mucosa) that lines these areas. Long-term inflammation causes the mucosa to grow into a polyp filled with watery mucus. Nasal polyps look like moist, ochoa grapes in the nose. Nasal polyps are not cancer (more content not included)... [facility] CT Abdomen/Pelvis w/o Contra moreno 09-29-2023 CT Abdomen/Pelvis w/o Contrast Exam Date/Time: 09/28/2023 19:58 EDT Reason for Exam: RLQ abdominal pain;Other (please specify) Report IMPRESSION: NO ACUTE ABDOMINOPELVIC PROCESS. COLONIC DIVERTICULOSIS WITHOUT DIVERTICULITIS. EXAM: CT Abdomen/Pelvis w/o Contrast History: Right lower quadrant abdominal pain. Technique: Multiple contiguous axial images were obtained of the abdomen and pelvis from the level of the lung bases through the ischial tuberosities without contrast. Multiplanar reformats were obtained. Unless otherwise stated, incidental findings identified in this report do not require routine follow-up imaging. Comparison: CT abdomen pelvis 11/06/2018 Findings: Lung bases are clear. Lack of intravenous contrast precludes optimal evaluation of the abdominal and pelvic viscera. The unenhanced liver, gallbladder, spleen, stomach, pancreas, and adrenal glands appear within normal limits. This kidneys appear within normal limits. No urinary tract calculi or hydronephrosis. Urinary bladder is well distended. The uterus is present. Abdominal aorta is nonaneurysmal. No retroperitoneal or abdominal/pelvic lymphadenopathy. No small bowel obstruction. A few colonic diverticuli are identified. No overt colonic mass or pericolonic inflammation. Appendix is within normal limits. No free fluid or free air. No acute osseous abnormality. All CT scans at this facility use dose modulation, iterative reconstruction, and/or weight based dosing when appropriate to reduce radiation dose to as low as reasonably achievable. Report Ordering Provider: Sidney Daly FINAL REPORT Dictated: 09/29/2023 8:51 am Rony Ramos DO Signed (Electronic Signature): 09/29/2023 8:51 am Signed by: Rony Ramos DO Transcribed by: LINDY Technologist: ALEXEI Technical Comments Rectal Contrast Given? No Oral contrast amount in ml's: 0 [facility] B hCG [place] 09-28-2023 Beta HCG ( test) Ql Negative [facility] Comment on above: Performed By: #### 2 [id number] #### [facility] [address] [place] [address] BMPon 09-28-2023 Anion gap [Moles/Vol] 13 mmol/L Normal 6-16 [facility] Comment on above: Performed By: #### 2 [id number] #### [facility] [address] [place] [address] Calcium [Mass/Vol] 9.9 mg/dL Normal 8.9-11.1 [facility] Comment on above: Performed By: #### 2 [id number] #### [facility] [address] [place] [address] Chloride [Moles/Vol] 101 mmol/L Normal 101-111 [facility] Comment on above: Performed By: #### 2 [id number] #### [facility] [address] [place] [address] CO2 [Moles/Vol] 25 mmol/L Normal 21-31 [facility] Comment on above: Performed By: #### 2 [id number] #### [facility] [address] [place] [address] Creatinine [Mass/Vol] 0.9 mg/dL Normal 0.5-1.3 [facility] Comment on above: Performed By: #### 2 [id number] #### [facility] [address] [place] [address] Glucose [Mass/Vol] 94 mg/dL Normal 55-199 [facility] Comment on above: Performed By: #### 2 [id number] #### [facility] [address] [place] [address] Potassium [Moles/Vol] 3.6 mmol/L Normal 3.5-5.3 [facility] Comment on above: Performed By: #### 2 [id number] #### [facility] [address] [place] [address] Sodium [Moles/Vol] 135 mmol/L Normal 135-145 [facility] Comment on above: Performed By: #### 2 [id number] #### [facility] [address] [place] [address] Urea nitrogen [Mass/Vol] 8 mg/dL Normal 5-21 [facility] Comment on above: Performed By: #### 2 [id number] #### [facility] [address] [place] [address] Urea nitrogen/Creatinine [Mass ratio] 9 No Units Low 10-20 [facility] Comment on above: Performed By: #### 2 [id number] #### [facility] [address] [place] [address] CBC w/ Auto Diffon 4 Basophils/100 WBC (Bld) 0.7 % Normal 0.0-2.0 [facility] Comment on above: Performed By: #### 2 [id number] #### [facility] [address] [place] [address] Basophils/Leukocytes Auto (Bld) [Pure # fraction] 0.1 E9/L Normal 0.0-0.2 [facility] Comment on above: Performed By: #### 2 [id number] #### [facility] [address] [place] [address] Eosinophils (Bld) [#/Vol] 0.0 E9/L Normal 0.0-0.5 [facility] Comment on above: Performed By: #### 2 [id number] #### [facility] [address] [place] [address] Eosinophils/100 WBC (Bld) 0.5 % Normal 0.0-8.0 [facility] Comment on above: Performed By: #### 2 [id number] #### [facility] [address] [place] [address] Erythrocyte distribution width (RBC) [Ratio] 14.3 % High 10.9-14.2 [facility] Comment on above: Performed By: #### 2 [id number] #### [facility] [address] [place] [address] Hematocrit (Bld) [Volume fraction] 39.5 % Normal 34.0-46.0 [facility] Comment on above: Performed By: #### 2 [id number] #### [facility] [address] [place] [address] Hemoglobin (Bld) [Mass/Vol] 13.2 g/dL Normal 12.0-16.0 [facility] Comment on above: Performed By: #### 2 059042 #### [facility] [address] [place] [address] Lymphocytes (Bld) [#/Vol] 3.5 E9/L Normal 1.0-4.0 [facility] Comment on above: Performed By: #### 2 [id number] #### [facility] [address] [place] [address] Lymphocytes/100 WBC (Bld) 35.6 % Normal 14.0-50.0 [facility] Comment on above: Performed By: #### 2 054259 #### [facility] [address] [place] [address] MCH (RBC) [Entitic mass] 29.3 pg Normal 27.0-34.0 [facility] Comment on above: Performed By: #### 2 [id number] #### [facility] [address] [place] [address] MCHC (RBC) [Mass/Vol] 33.5 g/dL Normal 31.4-36.0 [facility] Comment on above: Performed By: #### 2 277643 #### [facility] [address] [place] [address] MCV (RBC) [Entitic vol] 87.4 fL Normal 80.0-100.0 [facility] Comment on above: Performed By: #### 2 192441 #### [facility] [address] [place] [address] Monocytes (Bld) [#/Vol] 0.7 E9/L Normal 0.2-1.0 [facility] Comment on above: Performed By: #### 2 154579 #### [facility] [address] [place] [address] Neutrophils (Bld) [#/Vol] 5.6 E9/L Normal 2.0-7.5 [facility] Comment on above: Performed By: #### 2 891819 #### [facility] [address] [place] [address] Neutrophils/100 WBC (Bld) 56.4 % Normal 36.0-75.0 [facility] Comment on above: Performed By: #### 2 [id number] #### [facility] [address] [place] [address] Platelet mean volume (Bld) [Entitic vol] 8.1 fL Normal 6.4-10.8 [facility] Comment on above: Performed By: #### 2 [id number] #### [facility] [address] [place] [address] Platelets (Bld) [#/Vol] 360.0 E9/L Normal 150.0-500.0 [facility] Comment on above: Performed By: #### 2 609212 #### [facility] [address] [place] [address] RBC (Bld) [#/Vol] 4.5 E12/L Normal 4.3-5.9 [facility] Comment on above: Performed By: #### 2 963393 #### [facility] [address] [place] [address] WBC corrected for nucl RBC Auto (Bld) [#/Vol] 9.9 E9/L Normal 4.0-11.0 [facility] Comment on above: Performed By: #### 2 [id number] #### [facility] [address] [place] [address] CHEMISTRYOrdered By: SYSTEM SYSTEM on 09-28-2023 Albumin [Mass/Vol] 4.8 g/dL Normal 3.3 - 5.0 gm/dL Rem[facility] Chem Albumin/Globulin [Mass ratio] 1.6 {ratio} Normal 1.1 - 2.2 [facility] ALP [Catalytic activity/Vol] 66 [iU]/d Normal 21 - 98 Int._Unit/L [facility] ALT No additional P-5'-P [Catalytic activity/Vol] 16 [iU]/d Normal 6 - 46 Int._Unit/L [facility] Anion gap [Moles/Vol] 13 mmol/L Normal 6 - 16 mEq/L [facility] AST [Catalytic activity/Vol] 15 [iU]/d Normal 5 - 43 Int._Unit/L [facility] Bilirubin [Mass/Vol] 0.3 mg/dL Normal 0.0 - 1 .1 mg/dL [facility] Bilirubin.direct [Mass/Vol] 0.0 mg/dL Normal 0.0 - 0.4 mg/dL [facility] Bilirubin.indirect [Mass or moles/Vol] 0.3 mg/dL Normal 0.1 - 0.9 mg/dL [facility] Calcium [Mass/Vol] 9.9 mg/dL Normal 8.9 - 11. 1 mg/dL [facility] Chloride [Moles/Vol] 101 mmol/L Normal 101 - 1 11 mmol/L [facility] CO2 [Moles/Vol] 25 mmol/L Normal 21 - 31 mmol/L [facility] Creatinine [Mass/Vol] 0.9 mg/dL Normal 0.5 - 1.3 mg/dL [facility] eGFR 84 mL/min/1.73 m2 Normal >=59mL/min / 1.73 m2 [facility] Globulin (S) [Mass/Vol] 3.0 g/dL Normal 1.4 - 4.0 gm/dL [facility] Glucose [Mass/Vol] 94 mg/dL Normal 55 - 199 mg/dL [facility] Lipase [Catalytic activity/Vol] 26 U/L Normal 13 - 58 unit/L [facility] Potassium [Moles/Vol] 3.6 mmol/L Normal 3.5 - 5.3 mmol/L [facility] Protein [Mass/Vol] 7.8 g/dL Normal 6.0 - 7.8 gm/dL [facility] Sodium [Moles/Vol] 135 mmol/L Normal 135 - 145 mmol/L [facility] Urea nitrogen [Mass/Vol] 8 mg/dL Normal 5 - 21 mg/dL [facility] Urea nitrogen/Creatinine [Mass ratio] 9 mg/mg Low 10 - 20 [facility] Consent for Treatmenton 08-30 Consent for Treatment [id number] [facility] Discharge Instructionson Discharge Instructions [id number] [facility] ED Clinical Summaryon 2023 ED Clinical Summary (Inserted Image. Lyssa ble to display) [place] [id number] ED Clinical Summary Person Information Name: [facility] Age: 37 Years : 1985 Sex: Female Language: Nauruan PCP: Evans CASAS DO, FAAFP Marital Status: Phone: [phone] Visit Id: Visit Reason: Medical problem - minor; Nausea; Abdominal pain; RT PAIN BY BELLY BUTTON Speciality: Acuity: 3 Enc Type: Emergency Med Service: Emergency Arrival: 09/28/2023 18:21:25 Discharge: 09/28/2023 21:22:11 LOS: 000 03:01 Checkin: 09/28/2023 18:21:25 Checkout: 09/28/2023 21:22:11 Dispo Type: Home (Routine DC) EVENTS: Event Name Event Status Request Date/Time Start Date/Time Complete Date/Time Arrive Complete 09/28/2023 18:21:25 09/28/2023 18:21:25 09/28/2023 18:21:25 Document Home Meds Request 09/28/2023 18:21:25 Triage Complete 09/28/2023 18:21:25 09/28/2023 18:38:11 09/28/2023 18:38:11 Registration Complete 09/28/2023 18:25:15 09/28/2023 18:25:15 09/28/2023 18:25:15 Reg Complete Request 09/28/2023 18:25:15 Reg Bed Request Complete 09/28/2023 18:25:15 09/28/2023 18:25:15 09/28/2023 18:25:15 Bed Assign Complete 09/28/2023 18:27:40 09/28/2023 18:27:40 09/28/2023 18:27:40 Dr Exam Complete 09/28/2023 18:27:40 09/28/2023 18:46:45 09/28/2023 18:46:45 RN Exam Complete 09/28/2023 18:27:40 09/28/2023 19:24:45 09/28/2023 19:24:45 Meds Admin Complete 09/28/2023 18:42:22 09/28/2023 19:24:10 Pending Labs Complete 09/28/2023 18:42:22 09/28/2023 19:44:45 Lab Complete 09/28/2023 18:42:22 09/28/2023 19:25:52 Registration Request 09/28/2023 18:46:45 Dr Exam Complete 09/28/2023 19:01:14 09/28/2023 19:01:14 09/28/2023 19:01:14 Pending Labs Complete 09/28/2023 19:03:54 09/28/2023 19:03:54 09/28/2023 19:25:52 Lab Complete 09/28/2023 19:03:54 09/28/2023 19:03:54 09/28/2023 19:25:52 Dr Exam Complete 09/28/2023 19:12:40 09/28/2023 19:12:40 09/28/2023 19:12:40 CT Complete 09/28/2023 19:47:59 09/28/2023 19:49:37 09/28/2023 19:58:18 Discharge Complete 09/28/2023 21:09:04 09/28/2023 21:22:15 09/28/2023 21:22:15 Transfer Complete 09/28/2023 21:22:15 09/28/2023 21:22:15 09/28/2023 21:22:15 ADDRESS: [address] [place] [phone] PHYS DOC NOTES: MEDICAL INFORMATION: Prescriptions Given: Medications to Continue with No Changes Other Medications enoxaparin (Lovenox 40 mg/0.4 mL Injection) 40 Milligram Subcutaneous every 24 hours. ergocalciferol (Vitamin D) 2,000 International unit By Mouth every week. fluticasone nasal (Flonase 0.05 mg/inh [place]) 2 Sprays Nasal Inhalation every day. each nostril. metformin (MetFORMIN (Eqv-Glucophage XR) 500 mg oral tablet, extended release) 2 Tablets By Mouth every day. PATIENT EDUCATION INFORMATION: Instructions: Abdominal Pain, Adult Follow up: With: Address: When: [facility], [place] [address] Business (1) In 3 days DIAGNOSIS: 1:Abdominal pain [facility] ED Note-Physicianon 09-28-19 ED Note-Physician Patient was signed t o me with outgoing provider. Patient presented for right-sided abdominal discomfort. At the time of signout she is pending lab work and urinalysis. Blood work is overall very reassuring. Urine shows no signs of UTI. With no identified cause of her discomfort will obtain a CT of the abdomen pelvis to evaluate. CT of the abdomen pelvis shows no acute process. On examination patient is feeling better and states that he feels more like reflux at this time. Discussed the results of her lab work and imaging. At this time I feel she is stable for discharge with continued oral hydration and easy digest diet. Will have her follow-up close with a primary care physician on outpatient basis. Brionna return precautions. Patient states understanding agreement this plan is discharged stable condition. [facility] Comment on above: Result Comment: Elec tronically Signed By: Sidney Daly DO\.br\Date and Time Signed: 09/28/23 21:12 EDT ED Note-Physician Basic Information Time Seen: Bijan Miramontes PA-C 09/28/2023 18:46 Chief Complaint Pt woke up around 7 am and started getting a pain on R side of belly button. States feels bloated and like her abdomen is coral.Was sent here from [facility] for possible appendicitis. Nausea, denies vomiting. History of Present Illness 37-year-old female comes to the ED for evaluation abdominal pain. The patient developed crampy intermittent right-sided abdominal pain this morning. She states she developed the pain while she was breast-feeding. She is over a year . She did have a bowel movement with no change in her symptoms. She continues to have crampy intermittent pain. No fever, chills, nausea, vomiting. No diarrhea. She has had some increased urinary frequency but no dysuria. Abdominal history significant for previous laparoscopy for ovarian cyst. She is chronically anticoagulated due to antiphospholipid syndrome. She was seen at urgent care and was sent to the ED for further evaluation. Review of Systems A 10 point review of systems is negative except as noted above. Medical and Surgical History: Reviewed and noted Social history: Lives at home Tobacco: Denies Physical Exam Vitals & Measurements T: 36.9 ?C(Oral) HR: 69(Peripheral) RR: 16 BP: 141/82 SpO2: 97% HT: 168 cm WT: 105.5 kg BMI: 37.38 Nurses notes and vital signs reviewed and patient is not hypoxic. General: The patient appears well, resting comfortably. Skin: Warm, dry. Head: Atraumatic. Neck: No JVD. Eye: Normal conjunctiva. Ears, Nose, Mouth, and Throat: Moist mucous membranes. Cardiovascular: Strong distal pulses. Chest wall: Respiratory: Respirations are nonlabored. Back: Normal range of motion. Musculoskeletal: Normal ROM with no gross deformity. Gastrointestinal: Mild tenderness along the lower abdomen began at the midline extending towards the right. Negative McBurney's. Negative Pal's. Urological: Neurological: Awake and alert. No focal deficits. Follows commands. Psychiatric: Cooperative. Medical Decision Making Patient presents with right-sided abdominal pain. She has some minimal urinary symptoms with frequency but no dysuria. Laboratory studies and urinalysis ordered and pending, case discussed with the oncoming physician for follow-up and disposition. Assessment/Plan 1. Abdominal pain (R10.9: Unspecified abdominal pain) Orders: Sodium Chloride 0.9% intravenous solution, 1,000 mL, Soln-IV, IV, Once, Stop date 09/28/23 18:42:00 EDT, STAT, Start date 09/28/23 18:42:00 EDT, Infuse over 61, minute(s) Basic Metabolic Panel Beta hCG Qual CBC w/ Auto Diff Hepatic Function Panel Lipase Level UA with Cult Rflx Disposition Plan Discharge Prescription List Prescriptions No active prescription medications Follow-up No qualifying data available Problem List/Past Medical History Ongoing Antiphospholipid syndrome Blood pressure elevated without history of HTN COVID-19 vaccine dose declined Dry mouth Dysfunction of right eustachian tube Dyshidrotic eczema Elevated blood pressure reading Environmental allergies Fatigue Gestational diabetes H/O: CVA H/O: hypothyroidism History of asthma History of COVID-19 History of gestational diabetes History of kidney stones Hx of iron deficiency anemia Hyperventilation syndrome Hypoglycemia Increased urinary frequency Inhalation of noxious fumes Morbid obesity Non-smoker NEETA (obstructive sleep apnea) Other sleep disorders Paresthesia of bilateral legs Pollen allergies Right lower quadrant pain Right otitis externa Right ovarian cyst Snoring Systemic viral illness Weakness Historical Abdominal pain Acute URI Anxiety and depression Bloody stools Class 1 obesity with body mass index (BMI) of 34.0 to 34.9 in adult Dizziness Dysuria Family history of anemia Family history of ovarian cyst SOB (shortness of breath) Spontaneous miscarriage Suspected COVID-19 virus infection Vaginal tabitha Procedure/Surgical History Biopsy of breast (06/14/2013), Extraction of wisdom tooth (2006), endoscopy for ovarian cysts to drain. Medications Inpatient NS 1000 ml Bolus, 1000 mL, IV, Once Home Flonase 0.05 mg/inh [place], 2 spray(s), Nasal, Daily Lovenox 40 mg/0.4 mL Injection, 40 mg, SubCutaneous, q24hr MetFORMIN (Eqv-Glucophage XR) 500 mg oral tablet, extended release, 1000 mg= 2 tab(s), Oral, Daily Vitamin D, 2000 International_Unit, Oral, qWeek Allergies Milk Products (Illness) ciprofloxacin (Numbness and tingling of skin, Nausea) Social History Alcohol - Denies Alcohol Use, 08/05/2017 Substance Abuse - Denies Substance Abuse, 11/02/2016 Tobacco - Denies Tobacco Use, 11/02/2016 Never (less than 100 in lifetime) Tobacco Use:. Never Smokeless Tobacco Use:., 09/28/2023 Family History Diabetes mellitus type 2: Father. Stroke: Father. Lab Results No qual (more content not included)... [facility] Comment on above: Result Comment: Elec tronically Signed By: Bijan Miramontes PA-C\.br\Date and Time Signed: 09/28/23 18:50 EDT\.br\Electronically Co-Signed By: Benny Uribe DO\.br\Date and Time Co-Signed: 09/28/23 19:44 EDT ED Patient Education Noteon 09-28-2023 ED Patient Education Note Gastroenterology Abdominal Pain, Adult Pain in the abdomen (abdominal pain) can be caused by many things. Often, abdominal pain is not serious and it gets better with no treatment or by being treated at home. However, sometimes abdominal pain is serious. Your health care provider will ask questions about your medical history and do a physical exam to try to determine the cause of your abdominal pain. Follow these instructions at home: Medicines ? Take xvek-zgg-ncoymwv and prescription medicines only as told by your health care provider. ? Do not take a laxative unless told by your health care provider. General instructions ? Watch your condition for any changes. ? Drink enough fluid to keep your urine pale yellow. ? Keep all follow-up visits as told by your health care provider. This is important. Contact a health care provider if: ? Your abdominal pain changes or gets worse. ? You are not hungry or you lose weight without trying. ? You are constipated or have diarrhea for more than 2?3 days. ? You have pain when you urinate or have a bowel movement. ? Your abdominal pain wakes you up at night. ? Your pain gets worse with meals, after eating, or with certain foods. ? You are vomiting and cannot keep anything down. ? You have a fever. ? You have blood in your urine. Get help right away if: ? Your pain does not go away as soon as your health care provider told you to expect. ? You cannot stop vomiting. ? Your pain is only in areas of the abdomen, such as the right side or the left lower portion of the abdomen. Pain on the right side could be caused by appendicitis. ? You have bloody or black stools, or stools that look like tar. ? You have severe pain, cramping, or bloating in your abdomen. ? You have signs of dehydration, such as: ? Dark urine, very little urine, or no urine. ? Cracked lips. ? Dry mouth. ? Sunken eyes. ? Sleepiness. ? Weakness. ? You have trouble breathing or chest pain. Summary ? Often, abdominal pain is not serious and it gets better with no treatment or by being treated at home. However, sometimes abdominal pain is serious. ? Watch your condition for any changes. ? Take wubv-jsp-qvynavx and prescription medicines only as told by your health care provider. ? Contact a health care provider if your abdominal pain changes or gets worse. ? Get help right away if you have severe pain, cramping, or bloating in your abdomen. This information is not intended to replace advice given to you by your health care provider. Make sure you discuss any questions you have with your health care provider. Document Revised: 06/04/2020 Document Reviewed: 08/25/2019 [employer] Patient Education ? 2022 [employer] [facility] ED Patient Summaryon 024 ED Patient Summary (Inserted Image. Lyssa ble to display) [address] [address] Patient Discharge Instructions Person Information Name: AMDHU RENDON Age: 37 Years Arrival Date: 09/28/2023 18:21:25 Discharge Diagnosis: 1:Abdominal pain [facility] Provider Information Primary Provider: Benny Uribe DO Advanced Shipping Specialist:Bijan Miramontes PA-C The exam and treatment you received in the Emergency Department were for an urgent problem and are not intended as complete care. It is important that you follow up with a doctor, nurse practitioner, or physician?s electrician station assistant for ongoing care. If your symptoms become worse or you do not improve as expected and you are unable to reach your usual health care provider, you should return to the Emergency Department. We are available 24 hours a day. MADHU RENDON has been given the following list of patient education materials, prescriptions and follow-up instructions: Follow-up Instructions: With: Address: When: [facility] [address] [place] [address] [place] [address] Business (1) In 3 days In the event that this physician does not participate in your insurance network, please consult with your insurance company to find a nearby participating provider. Patient Education Materials: Abdominal Pain, Adult A MESSAGE TO ALL PATIENTS REGARDING OPIOIDS PRESCRIPTION OPIOIDS: WHAT YOU NEED TO KNOW Prescription opioids can be used to help relieve ysnjdism-sh-jjyvir pain and are often prescribed following a surgery or injury, or for certain health conditions. These medications can be an important part of the treatment but also come with serious risks. It is important to work with your healthcare provider to make sure you are getting the safest, most effective care. WHAT ARE THE RISKS AND SIDE EFFECTS OF OPIOID USE? Prescription opioids carry serious risks of addiction and overdose, especially with prolonged use. An opioid overdose, often marked by slowed breathing, can cause sudden . The use of prescription opioids can have a number of side effects as well, even when taken as directed: ? Tolerance?meaning you might need to take more of the medication for the same pain relief ? Physical dependence?meaning you have symptoms of withdrawal when a medication is stopped ? Increased sensitivity to pain ? Constipation ? Nausea, vomiting, and dry mouth ? Sleepiness and dizziness ? Confusion ? Depression ? Low levels of testosterone that can result in lower sex drive, energy, and strength ? Itching and sweating RISKS ARE GREATER WITH: ? History of drug misuse, substance use disorder, or overdose ? Mental health conditions (such as depression or anxiety) ? Sleep apnea ? Older age (65 years and older) ? Avoid alcohol while taking prescription opioids. Also, unless specifically advised by your health care provider, medications to avoid include: ? Benzodiazepines (such as Xanax or Valium) ? Muscle relaxants (such as Soma or Flexeril) ? Hypnotics (such as Ambien or Lunesta) ? Other prescription opioids KNOW YOUR OPTIONS Talk to your health care provider about ways to manage your pain that don?t involve prescription opioids. Some of these options may actually work better and have fewer risks and side effects. Options may include: ? Pain relievers such as acetaminophen, ibuprofen, and naproxen ? Some medication that are also used for depression or seizures ? Physical therapy and exercise ? Cognitive behavioral therapy, a psychological, goal-directed approach, in which patients learn how to modify physical, behavioral, and emotional triggers of pain and stress. IF YOU ARE PRESCRIBED OPIOIDS FOR PAIN: ? Never take opioids in greater amounts or more often than prescribed. ? Follow up with your primary health care provider. o Work together to create a plan on how to manage your pain. o Talk about ways to help manage your pain that don?t involve prescription opioids. o Talk about any and all concerns and side effects. ? Help prevent misuse and abuse o Never sell or share prescription opioids. o Never use another person?s prescription opioids. ? Store prescription opioids in a secure place and out of reach of others (this may include visitors, children, friends, and family). ? Safely dispose of unused prescription opioids: Find your community drug take-back program or your pharmacy mail-back program, or flush them down the toilet, following guidance from the Food and Drug Administration (www.fda.gov/Drugs/Resourc esForYou). ? Visit www.cdc.gov/drugoverdose to learn about the risks of opioids abuse and overdose. ? If you believe you may be struggling with addiction, tell your health career orientation teacher and ask for guidance or call [employer]?S National Helpline at 5-315-526-FTQI. k Source: US Dep (more content not included)... [facility] Family Medicine Office/Clini c Noteon 09-28-2023 Family Medicine Office/Clinic Note Chief Complaint abdominal pain HPI Staff 37 year old female presents with abdominal pain Abdominal Pain: Duration: _ 1 min Location: RUQ Radiation: periumbilical Quality/Character: cramping Severity: moderate Frequency: several times/hour Length of episodes: _ Associated symptoms: Abdominal distention/bloating: yes Anorexia: no Bloody diarrhea: no Dysuria: no Fever: no chills Hematemesis: no Hematochezia: no Hematuria: no Jaundice: no Joint pain: yes more muscle pain due to dehydration Myalgia: no Nausea: yes Polyuria: no Shortness of breath: yes Sour taste in mouth: yes Vaginal discharge: no Vomiting: no Weight loss: yes actively trying to lose weight Better with: yes shower, also gets dizzy so she sits down Worse with: yes sitting, bending over Recent travel: no 2 BM, Diarrhea 6x sunday also symptoms began today post 16 months vaginal delivery History of Present Illness Reviewed and agree with above documented HPI by ophthalmic medical technologist. Portions of this record may have been created with voice recognition artificial intelligence software, specifically [employer], Hyle[employer] and or [employer]Hub. Substitutions may have occurred due to the inherent limitations of voice recognition and artificial intelligence software. Patient is a 37-year-old female who presents to [facility], for right lower quadrant pain, that started early this morning, worsening symptoms throughout the day, patient states occasionally she will get bloating sensation and subseptate, pain started around the bellybutton, radiated down to the right lower quadrant, been constant. Patient states she does have her gallbladder and her appendix in place. Patient stated few years ago she had similar pain she had an ovarian cyst that ruptured, patient states slightly nauseous but she is able to eat it. Patient states she has been getting dizzy, so she sits down and subsides within a few seconds, patient states when she bends her way she has increased right lower quadrant pain. Patient states she has been having diarrhea since Sunday, about 6 days ago, today she had a normal bowel movement. Patient denies any fevers, chills, vomiting, sore throat, cough, chest pain, shortness of breath, abdominal pain, flank pain, pelvic pain, or lumbar back pain. Review of Systems PHQ Score Initial Depression Screen Score: 0 SCORE Physical Exam Vitals & Measurements T: 36.6 ?C(Oral) HR: 79(Peripheral) BP: 148/90 SpO2: 97% HT: 66 in HT: 168 cm WT: 105.5 kg WT: 232.1 lb BMI: 37.38 General: Well developed, well nourished, in no acute distress. Patient does not appear ill or septic. No respiratory distress. Patient answers questions appropriately and in complete sentences, and follows commands appropriately. Head: Normocephalic/atraumatic no upper respiratory infection. Lungs: Normal respiratory effort and clear to auscultation throughout. No wheezing, rales, crackles, or decreased breath sounds. Cardio: regular rate and rhythm, no murmur Pulses: Normal capillary refill Abdomen: Soft, nondistended, positive right lower quadrant abdominal pain, no radiating pain, no rebound or guarding. No left lower quadrant or epigastric pain. No right upper quadrant pain on examination. No radiating pain. No suprapubic pain, left or right CVA tenderness, or lumbar back pain on examination. Extremity: Patient is able to move all 4 extremities equally without pain or weakness. Neurologic: Grossly normal Skin: No rashes, ulcerations, or suspicious lesions Lymph Nodes: no lad Mental Status: alert, active Assessment/Plan BP 150/70. Patient has no history hypertension, she was asymptomatic. Repeat BP 140/90. 37-year-old female presented to [facility], for right lower quadrant abdominal pain, worsening symptoms throughout the day, history of ovarian cyst, still has her appendix, no right upper quadrant pain. Patient worsening pain on exam, but no acute abdomen. Patient is willing to go to the emergency room after being discharged from [facility], for further evaluation of right lower quadrant pain. 1. Right lower quadrant pain (R10.31: Right lower quadrant pain) See above above 2. Elevated blood pressure reading (R03.0: Elevated blood-pressure reading, without diagnosis of hypertension) Discussed elevated blood pressure reading and risk associated with high blood pressure. Advised on low-sodium diet and increase physical activity, weight loss. Encourage patient to purchase blood pressure machine at pharmacy log blood pressures daily. Follow-up with PCP on elevated blood pressure. Patient verbalized understanding of treatment plan. BMI 38.0-38.9,adult (Z68.38: Body mass index [BMI] 38.0-38.9, adult) The standard range for ages 18 and older is >=18.5 and < 25 kg/m2. Your BMI today was above this range, this falls in the overweight to obese category and there are medical benefits to weight loss. We can o (more content not included)... [facility] Comment on above: Result Comment: Elec tronically Signed By: CHARLA QUINTEROS, JANET\.br\Date and Time Signed: 09/28/23 18:28 EDT HEMATOLOGYOrdered By: SYSTEM SYSTEM on 09-28-2023 Basophils/100 WBC (Bld) 0.7 % Normal 0.0 - 2.0 % Remisol Heme Basophils/Leukocytes Auto (Bld) [Pure # fraction] 0.1 E9/L Normal 0.0 - 0.2 E9/L Remisol Heme Eosinophils (Bld) [#/Vol] 0.0 E9/L Normal 0.0 - 0.5 E9/L Remisol Heme Eosinophils/100 WBC (Bld) 0.5 % Normal 0.0 - 8.0 % Remisol Heme Erythrocyte distribution width (RBC) [Ratio] 14.3 % High 10.9 - 14.2 % Remisol Heme Hematocrit (Bld) [Volume fraction] 39.5 % Normal 34.0 - 46.0 % Remisol Heme Hemoglobin (Bld) [Mass/Vol] 13.2 g/dL Normal 12.0 - 16.0 gm/dL Remisol Heme Lymphocytes (Bld) [#/Vol] 3.5 E9/L Normal 1.0 - 4.0 E9/L Rem[facility] Heme Lymphocytes/100 WBC (Bld) 35.6 % Normal 14.0 - 50.0 % Remisol Heme MCH (RBC) [Entitic mass] 29.3 pg Normal 27.0 - 34.0 pg Remisol Heme MCHC (RBC) [Mass/Vol] 33.5 g/dL Normal 31.4 - 36.0 gm/dL Remisol [facility]e MCV (RBC) [Entitic vol] 87.4 fL Normal 80.0 - 100.0 fL Rem[facility]e Monocytes (Bld) [#/Vol] 0.7 E9/L Normal 0.2 - 1.0 E9/L Remisol [facility]e Monocytes/100 WBC (Bld) 6.8 % Normal 4.0 - 14.0 % Rem[facility]e Neutrophils (Bld) [#/Vol] 5.6 E9/L Normal 2.0 - 7.5 E9/L [facility]e Neutrophils/100 WBC (Bld) 56.4 % Normal 36.0 - 75.0 % [facility] Platelet mean volume (Bld) [Entitic vol] 8.1 fL Normal 6.4 - 10.8 fL [facility]e Platelets (Bld) [#/Vol] 360.0 E9/L Normal 150.0 - 500.0 E9/L Rem[facility]e RBC (Bld) [#/Vol] 4.5 E12/L Normal 4.3 - 5.9 E12/L [facility] WBC corrected for nucl RBC Auto (Bld) [#/Vol] 9.9 E9/L Normal 4.0 - 11.0 E9/L [facility]e Hep Func Panelon 09-28-2023 Albumin [Mass/Vol] 4.8 g/dL Normal 3.3-5.0 [facility] Comment on above: Performed By: #### 2 [id number] #### [facility] [address] [place] [address] Albumin/Globulin (S) [Mass conc ratio] 1.6 Normal 1.1-2.2 [facility] Comment on above: Performed By: #### 2 [id number] #### [facility] [address] [place] [address] ALP [Catalytic activity/Vol] 66 Int._Unit/L Normal 21-98 [facility] Comment on above: Performed By: #### 2 [id number] #### [facility] [address] [place] [address] ALT No additional P-5'-P [Catalytic activity/Vol] 16 Int._Unit/L Normal 6-46 [facility] Comment on above: Performed By: #### 2 [id number] #### [facility] [address] [place] [address] AST [Catalytic activity/Vol] 15 Int._Unit/L Normal 5-43 [facility] Comment on above: Performed By: #### 2 [id number] #### [facility] [address] [place] [address] Bilirubin [Mass/Vol] 0.3 mg/dL Normal 0.0-1.1 [facility] Comment on above: Performed By: #### 2 [id number] #### [facility] [address] [place] [address] Bilirubin.direct [Mass/Vol] 0.0 mg/dL Normal 0.0-0.4 [facility] Comment on above: Performed By: #### 2 [id number] #### [facility] [address] [place] [address] Bilirubin.indirect [Mass or moles/Vol] 0.3 mg/dL Normal 0.1-0.9 [facility] Comment on above: Performed By: #### 2 [id number] #### [facility] [address] [place] [address] Globulin (S) [Mass/Vol] 3.0 g/dL Normal 1.4-4.0 [facility] Comment on above: Performed By: #### 2 [id number] #### [facility] [address] [place] [address] Protein [Mass/Vol] 7.8 g/dL Normal 6.0-7.8 [facility] Comment on above: Performed By: #### 2 [id number] #### [facility] [address] [place] [address] Lipase Levelon 09-28-2023 Lipase [Catalytic activity/Vol] 26 U/L Normal 13-58 [facility] Comment on above: Performed By: #### 2 [id number] #### [facility] [address] [place] [address] Patient Educationon 09-28-19 24 Patient Education Cardiovascular Hypertension, Adult Hypertension is another name for high blood pressure. High blood pressure forces your heart to work harder to pump blood. This can cause problems over time. There are two numbers in a blood pressure reading. There is a top number (systolic) over a bottom number (diastolic). It is best to have a blood pressure that is below 120/80. What are the causes? The cause of this condition is not known. Some other conditions can lead to high blood pressure. What increases the risk? Some lifestyle factors can make you more likely to develop high blood pressure: ? Smoking. ? Not getting enough exercise or physical activity. ? Being overweight. ? Having too much fat, sugar, calories, or salt (sodium) in your diet. ? Drinking too much alcohol. Other risk factors include: ? Having any of these conditions: ? Heart disease. ? Diabetes. ? High cholesterol. ? Kidney disease. ? Obstructive sleep apnea. ? Having a family history of high blood pressure and high cholesterol. ? Age. The risk increases with age. ? Stress. What are the signs or symptoms? High blood pressure may not cause symptoms. Very high blood pressure (hypertensive crisis) may cause: ? Headache. ? Fast or uneven heartbeats (palpitations). ? Shortness of breath. ? Nosebleed. ? Vomiting or feeling like you may vomit (nauseous). ? Changes in how you see. ? Very bad chest pain. ? Feeling dizzy. ? Seizures. How is this treated? ? This condition is treated by making healthy lifestyle changes, such as: ? Eating healthy foods. ? Exercising more. ? Drinking less alcohol. ? Your doctor may prescribe medicine if lifestyle changes do not help enough and if: ? Your top number is above 130. ? Your bottom number is above 80. ? Your personal target blood pressure may vary. Follow these instructions at home: Eating and drinking ? If told, follow the DASH eating plan. To follow this plan: ? Fill one half of your plate at each meal with fruits and vegetables. ? Fill one fourth of your plate at each meal with whole grains. Whole grains include whole-wheat pasta, brown rice, and whole-grain bread. ? Eat or drink low-fat dairy products, such as skim milk or low-fat yogurt. ? Fill one fourth of your plate at each meal with low-fat (lean) proteins. Low-fat proteins include fish, chicken without skin, eggs, beans, and tofu. ? Avoid fatty meat, cured and processed meat, or chicken with skin. ? Avoid pre-made or processed food. ? Limit the amount of salt in your diet to less than 1,500 mg each day. ? Do not drink alcohol if: ? Your doctor tells you not to drink. ? You are , may be , or are planning to become . ? If you drink alcohol: ? Limit how much you have to: ? 0?1 drink a day for women. ? 0?2 drinks a day for men. ? Know how much alcohol is in your drink. In the [place] one drink equals one 12 oz bottle of beer (355 mL), one 5 oz glass of wine (148 mL), or one 1? oz glass of hard liquor (44 mL). Lifestyle ? Work with your doctor to stay at a healthy weight or to lose weight. Ask your doctor what the best weight is for you. ? Get at least 30 minutes of exercise that causes your heart to beat faster (aerobic exercise) most days of the week. This may include walking, swimming, or biking. ? Get at least 30 minutes of exercise that strengthens your muscles (resistance exercise) at least 3 days a week. This may include lifting weights or doing Pilates. ? Do not smoke or use any products that contain nicotine or tobacco. If you need help quitting, ask your doctor. ? Check your blood pressure at home as told by your doctor. ? Keep all follow-up visits. Medicines ? Take khtq-xrf-skwgjwr and prescription medicines only as told by your doctor. Follow directions carefully. ? Do not skip doses of blood pressure medicine. The medicine does not work as well if you skip doses. Skipping doses also puts you at risk for problems. ? Ask your doctor about side effects or reactions to medicines that you should watch for. Contact a doctor if: ? You think you are having a reaction to the medicine you are taking. ? You have headaches that keep coming back. ? You feel dizzy. ? You have swelling in your ankles. ? You have trouble with your vision. Get help right away if: ? You get a very bad headache. ? You start to feel mixed up (confused). ? You feel weak or numb. ? You feel faint. ? You have very bad pain in your: ? Chest. ? Belly (abdomen). ? You vomit more than once. ? You have trouble breathing. These symptoms may be an emergency. Get help right away. Call 911. ? Do not wait to see if the symptoms will go away. ? Do not drive yourself to the hospital. Summary ? Hypertension is another name for high blood pressure. ? High blood pressure forces your heart to work harder to pump blood. ? For m (more content not included)... [facility] RAD - Preliminary Cat Scan R eporton 05-31-2024 RAD - Preliminary Cat Scan Report [id number] [facility] SEROLOGYOrdered By: Amanda Siegel on 09-28-2023 Beta HCG ( test) Ql Negative (09/28/23 6:59 PM) Normal [facility] Man Sero UA with Cult Rflxon 09-28-19 Bilirubin Ql (U) Negative Normal Negative [facility] Comment on above: Performed By: #### 4 [id number] ####[facility] [address] [place] [address] Clarity (U) Clear Normal Clear [facility] Comment on above: Performed By: #### 4 [id number] ####[facility] [address] [place] [address] Color (U) Colorless Abnormal Yellow [facility] Comment on above: Result Comment: Micr oscopic readings are only performed on those samples that meet specific criteria set forth by [facility]. Performed By: #### 4 [id number] ####[facility] [address] [place] [address] Glucose Ql (U) Negative Normal Negative [facility] Comment on above: Performed By: #### 4 [id number] ####[facility] [address] [place] [address] Hemoglobin Auto test strip (U) [Mass/Vol] Negative Normal Negative [facility] Comment on above: Performed By: #### 4 [id number] ####[facility] [address] [place] [address] Ketones Auto test strip Ql (U) Negative Normal Negative [facility] Comment on above: Performed By: #### 4 [id number] ####[facility] [address] [place] [address] Leukocyte esterase Auto test strip Ql (U) Negative Normal Negative [facility] Comment on above: Performed By: #### 4 [id number] ####[facility] [address] [place], [place] [id number] Nitrite Auto test strip Ql (U) Negative Normal Negative [facility] Comment on above: Performed By: #### 4 [id number] ####[place] [id number] pH (U) 7.0 [pH] Invalid Interpretation Code 5.0-9.0 [facility] Comment on above: Performed By: #### 4 [id number] ####[place] [id number] Protein Ql (U) Negative Normal Negative [facility] Comment on above: Performed By: #### 4 [id number] ####[place] [id number] Specific gravity (U) [Rel density] 1.003 Invalid Interpretation Code 1.005-1.030 [facility] Comment on above: Performed By: #### 4 [id number] ####[place] [id number] Urobilinogen (U) [Mass/Vol] Negative Normal Negative [facility] Comment on above: Performed By: #### 4 [id number] ####[place] [id number] Type of Urine collection method Clean Catch Normal [facility] Comment on above: Performed By: #### 4 [id number] ####[place] [id number] URINALYSISOrdered By: SYSTEM SYSTEM on 09-28-2023 Bilirubin Ql (U) Negative Normal Negativemg/ dL [facility] UA Auto SS Clarity (U) Clear (09/28/23 7:35 PM) Normal Clear [facility] UA Auto SS Color (U) Colorless 1 *ABN* (09/28/23 7:35 PM) Invalid Interpretation Code Yellow [facility] UA Auto SS Comment on above: Interpretive Data: M icroscopic readings are only performed on those samples that meet specific criteria set forth by [facility]. Glucose Ql (U) Negative Normal Negativemg/ dL [facility] UA Auto SS Hemoglobin Auto test strip (U) [Mass/Vol] Negative Normal Negativemg/ dL [facility] UA Auto SS Ketones Auto test strip Ql (U) Negative Normal Negativemg/ dL [facility] UA Auto SS Leukocyte esterase Auto test strip Ql (U) Negative Normal NegativeLeu /uL [facility] UA Auto SS Nitrite Auto test strip Ql (U) Negative Normal Negativemg/ dL [facility] UA Auto SS pH (U) 7.0 *NA* (09/28/23 7:35 PM) Invalid Interpretation Code 5.0 - 9.0 [facility] UA Auto SS Protein Ql (U) Negative Normal Negativemg/ dL [facility] UA Auto SS Specific gravity (U) [Rel density] 1.003 *NA* (09/28/23 7:35 PM) Invalid Interpretation Code 1.005 - 1.030 [facility] UA Auto SS Urobilinogen (U) [Mass/Vol] Negative Normal Negativemg/ dL [facility] UA Auto SS URINALYSISOrdered By: Bijan Miramontes on 09-28-2023 UA Spec Desc Clean Catch (09/28/23 7:35 PM) Normal [facility] UA Auto SS Work Phone: eGFRon 09-28-2023 eGFR 84 mL/min/1.73 m2 Normal >=59 [facility] Comment on above: Order Comment: Order added by Discern Expert. Performed By: #### 1 [id number] #### [facility] [address] [place] [address] [facility] 09[facility]27[facility]2023 [facility] MADHU RENDON ([id number]) 1985 F Date Time Provider Department 09/27/[address] [facility] During your visit today, we recorded the following information about you: Harjit Haskins 09/27/2023 4:39 PM Signed Attempt has been made x2 to reschedule patient. She did not have labs drawn. Harjit Haskins Allergies As of Date: 09/27/2023 Noted Allergy Reaction CIPROFLOXACIN 05/19/2019 14 - Other: See Comments 16 - Unknown Comments: Dizziness, weakness sweating CIPROFLOXACIN-FLUOCINOLONE 05/19/2019 14 - Other: See Comments Comments: Dizziness, weakness sweating LACTOSE 09/10/2017 8 - GI Upset Comments: Diarrhea SEASONAL ALLERGIES 05/05/2020 8 - GI Upset 14 - Other: See Comments LACTALBUMIN 05/25/2017 16 - Unknown 8 - GI Upset Comments: Crampy and gassy MILK 05/25/2017 14 - Other: See Comments Comments: Crampy and gassy Diarrhea Other reaction(s): GI Upset Crampy and gassy MILK CONTAINING PRODUCTS (DAIRY) 05/25/2017 14 - Other: See Comments Comments: Crampy and gassy Diarrhea Other reaction(s): GI Upset Crampy and gassy Date Reviewed: 06/15/2023 Reviewed by: Serina Dawson MA - Fully Assessed Reason for Visit: Appointment Rescheduled [1024] Prescriptions as of 09/27/2023 - enoxaparin (LOVENOX) 40 mg/0.4 mL INJECT THE CONTENTS OF ONE SYRINGE (0.4 ML) SUBCUTANEOUSLY EVERY 24 HOURS - metFORMIN ER (GLUCOPHAGE XR) 500 mg 24 hr tablet - multivitamin tablet Take 1 tablet by mouth once daily. 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/2022 Iron deficiency anemia of [O99.019, D*03/27/2022 Primary hypercoagulable state (HCC) [D68.59] 08/01/2022 CVA, old, speech/language deficit [I69.328] 08/01/2022 Encounter Status:Closed by HARJIT HASKINS on 09/27/23 [facility] Ambulatory Visit Summaryon 0 4- Ambulatory Visit Summary MADHU RENDON :1985 Visit Date:08/03/2023 Ambulatory Visit Instructions Your Diagnosis Antiphospholipid syndrome BMI 38.0-38.9,adult Class 2 severe obesity due to excess calories with serious comorbidity and body mass index (BMI) of 38.0 to 38.9 in adult Gestational diabetes H/O: CVA Pollen allergies History of gestational diabetes Your Care Team Attending Physician - Evans CASAS DO, FAAFP Primary Care Physician - Evans CASAS DO, FAAFP This Is Your Medications List Contact prescribing physician if questions or concerns enoxaparin (Lovenox 40 mg/0.4 mL Injection) ergocalciferol (Vitamin D) fluticasone nasal (Flonase 0.05 mg/inh [place]) metformin (MetFORMIN (Eqv-Glucophage XR) 500 mg oral tablet, extended release) Procedures Performed Biopsy of breast (06/14/2013), Extraction of wisdom tooth (2006), endoscopy for ovarian cysts to drain. Discharge Vitals Temperature (Oral) 36.7 ?C Heart Rate (Peripheral) 72 Respiratory Rate 16 Blood Pressure 120/80 Height 168 cm Height 66 in Weight 108.9 kg Weight 239.58 lb BMI 38.58 What to do next You Need to Schedule the Following Appointments Follow Up with Evans CASAS DO, FAAFP, FAM, PED When: In 4 months Where: [address], [place] [address]- You Need to Complete the Following HgbA1c, Blood, Routine collect, 08/03/23, Order for future visit, Lab Collect, Gestational diabetes, Print Label By Order Location Medications What How Much When Instructions Unchanged enoxaparin (Lovenox 40 mg/ 0.4 mL Injection) 40 Milligram Subcutaneous Every 24 hours Contact prescribing physician if questions or concerns Unchanged ergocalciferol (Vitamin D) 2,000 International unit By Mouth Every week Contact prescribing physician if questions or concerns Unchanged fluticasone nasal (Flonase 0.05 mg/ inh [place]) 2 Sprays Nasal Inhalation Every day each nostril Contact prescribing physician if questions or concerns Unchanged metformin (MetFORMIN (Eqv-Glucophage XR) 500 mg oral tablet, extended release) 2 Tablets By Mouth Every day Contact prescribing physician if questions or concerns Allergies Milk Products (Illness) ciprofloxacin (Numbness and tingling of skin, Nausea) Problems Ongoing - Any problem that you are currently receiving treatment for. Antiphospholipid syndrome Blood pressure elevated without history of HTN COVID-19 vaccine dose declined Dry mouth Dysfunction of right eustachian tube Dyshidrotic eczema Environmental allergies Fatigue Gestational diabetes H/O: CVA H/O: hypothyroidism History of asthma History of COVID-19 History of gestational diabetes History of kidney stones Hx of iron deficiency anemia Hyperventilation syndrome Hypoglycemia Increased urinary frequency Inhalation of noxious fumes Morbid obesity Non-smoker NEETA (obstructive sleep apnea) Other sleep disorders Paresthesia of bilateral legs Pollen allergies Right otitis externa Right ovarian cyst Snoring Systemic viral illness Weakness Historical - Any problem that you are no longer receiving treatment for. Abdominal pain Acute URI Anxiety and depression Bloody stools Class 1 obesity with body mass index (BMI) of 34.0 to 34.9 in adult Dizziness Dysuria Family history of anemia Family history of ovarian cyst SOB (shortness of breath) Spontaneous miscarriage Suspected COVID-19 virus infection Vaginal tabitha Patient Survey You may receive a survey via text or e-mail asking about your office visit. Please share your experience with us by completing your survey. We appreciate your feedback and thank you for choosing us for your care. Education Materials Exercising to Lose Weight Getting regular exercise is important for everyone. It is especially important if you are overweight. Being overweight increases your risk of heart disease, stroke, diabetes, high blood pressure, and several types of cancer. Exercising, and reducing the calories you consume, can help you lose weight and improve fitness and health. Exercise can be moderate or vigorous intensity. To lose weight, most people need to do a certain amount of moderate or vigorous-intensity exercise each week. How can exercise affect me? You lose weight when you exercise enough to burn more calories than you eat. Exercise also reduces body fat and builds muscle. The more muscle you have, the more calories you burn. Exercise also: ? Improves mood. ? Reduces stress and tension. ? Improves your overall fitness, flexibility, and endurance. ? Increases bone strength. Moderate-intensity exercise Moderate-intensity exercise is any activity that gets you moving enough to burn at least three times more energy (calories) than if you were sitting. Examples of moderate exercise include: ? Walking a mile (more content not included)... Normal [facility] Family Medicine Office/Clini c Noteon 08-03-2023 Family Medicine Office/Clinic Note Chief Complaint Wants to discuss labs she had done back in May. History of Present Illness Here for follow up Have you had any ER visits or any hospitalizations since last visit? no Are you compliant with your medications and no difficulty affording your medications? yes Do you have side effects from the medication? no Are you compliant with your diet? yes Do you exercise? yes Do you have any of the following symptoms? Chest pain? no Palpitations? no WHITE/SOB? no Orthopnea? no PND? no Edema? no Have you had any recent cardiopulmonary testing? no Breast Feeding q day. Review of Systems PHQ Score Initial Depression Screen Score: 0 SCORE ROS - Provider Constitutional: no fever, no chills, no sweats, no weakness. Skin: no Jaundice, no rash, no lesions, no petechiae. ENMT: no ear pain, no sore throat, no congestion, no hoarseness. Respiratory: no shortness of breath, no cough, no orthopnea, no wheezing. Cardiovascular: no chest pain, no palpitations, no edema. Gastrointestinal: no nausea, no vomiting, no diarrhea, no GI bleeding.no constipationnoheartburn Genitourinary: no dysuria, no hematuria, no discharge, no pain.nofreq/urgency Musculoskeletal: no back pain, no trauma.nojoint pain Neurologic: no headache, no dizziness, no numbness, no weakness. Psychiatric: no sleeping problems, no irritability, no mood swings/depression. Heme/Lymph: no bleeding tendency, no bruising tendency, no petechiae, no swollen lymph nodes no Allergy/Imunology no seasonal allergies, no food allergies, no recurrent infections, no impaired immunity. Additional ROS info: Except as noted in the above Review of Systems and in the History of Present Illness all other systems have been reviewed and are negative or noncontributory. Physical Exam Vitals & Measurements T: 36.7 ?C(Oral) HR: 72(Peripheral) RR: 16 BP: 120/80 SpO2: 99% HT: 66 in HT: 168 cm WT: 108.9 kg WT: 239.58 lb BMI: 38.58 General: Well developed, well nourished, in no acute distress Mouth: Mucous membranes moist. Normal oropharynx, and posterior pharynx without lesions or exudates. Tongue normal Neck: Neck supple. No masses or palpable cervical nodes. Trachea midline. Thyroid without nodules, masses, tenderness, or enlargement Lungs: Normal respiratory effort and clear to auscultation Cardio: Regular rate and rhythm, normal S1 and S2, no murmur, no rub Abdomen: Soft, non-distended, non-tender. no G/R/S/Masses Musculoskeletal: No deformity or scoliosis noted. Normal range of motion. Joints normal. No erythema, edema, effusion, or ecchymosis Extremity: No clubbing, cyanosis, edema, or deformity, with normal ROM in both upper and lower bilateral extremities Neurologic: Grossly normal Skin: No rashes, ulcerations, or suspicious lesions Mental Status: Alert and oriented x3. Normal mood and affect Assessment/Plan 1. Antiphospholipid syndrome (D68.61: Antiphospholipid syndrome) Lovonox 40U SQ q day 2. BMI 38.0-38.9,adult (Z68.38: Body mass index [BMI] 38.0-38.9, adult) The standard range for ages 18 and older is >=18.5 and < 25 kg/m2. Your BMI today was above this range, this falls in the overweight to obese category and there are medical benefits to weight loss. We can offer counselling, referral, and/or medical support in addressing this problem. Your BMI and weight management will be followed at subsequent visits. 3. Class 2 severe obesity due to excess calories with serious comorbidity and body mass index (BMI) of 38.0 to 38.9 in adult (E66.01: Morbid (severe) obesity due to excess calories) diet and exercise 4. Gestational diabetes (O24.419: Gestational diabetes mellitus in , unspecified control) POC A1C 5.7 on Metformin 500mg po q day Ordered: HgbA1c 5. H/O: CVA (Z86.79: Personal history of other diseases of the circulatory system) Dr. Devon Grullon following, Neurology 6. Pollen allergies (Z91.09: Other allergy status, other than to drugs and biological substances) Flonase 2 inh per nostril bid. 7. History of gestational diabetes (Z86.32: Personal history of gestational diabetes) diet and exercise and A1C 3-6 mo off Glucophage is she comfortable with plan. PNMV Ordered: A1c POC 57252 Total time spent preparing the chart, conducting of the encounter with the patient and family and time spent documenting, reviewing, and ordering tests was 30 minutes. Review of Prior External Notes and Results:The following documents and/or results were reviewed on this visit which are external to my provider group and/or outside of my specialty: Labs: CBC, CMP, _, iron studies, _, _ Radiology: _, _, _, _, _, _, Records Reviewed: Consultations, _, _, _, _, _, Other Testing: Follow-up With When Contact Information Evans CASAS DO, FAAFP, FAM, PED In [address] [place] [address]- Additional Instructions: Patient Education Exercising to Lose Weight Problem Lis (more content not included)... Normal [facility] Comment on above: Result Comment: Elec tronically Signed By: Evans CASAS DO, FAAFP\.br\Date and Time Signed: 08/03/23 12:19 EDT Patient Educationon 08-03-19 Patient Education Physical Medicine an d Rehabilitation Exercising to Lose Weight Getting regular exercise is important for everyone. It is especially important if you are overweight. Being overweight increases your risk of heart disease, stroke, diabetes, high blood pressure, and several types of cancer. Exercising, and reducing the calories you consume, can help you lose weight and improve fitness and health. Exercise can be moderate or vigorous intensity. To lose weight, most people need to do a certain amount of moderate or vigorous-intensity exercise each week. How can exercise affect me? You lose weight when you exercise enough to burn more calories than you eat. Exercise also reduces body fat and builds muscle. The more muscle you have, the more calories you burn. Exercise also: ? Improves mood. ? Reduces stress and tension. ? Improves your overall fitness, flexibility, and endurance. ? Increases bone strength. Moderate-intensity exercise Moderate-intensity exercise is any activity that gets you moving enough to burn at least three times more energy (calories) than if you were sitting. Examples of moderate exercise include: ? Walking a mile in 15 minutes. ? Doing light yard work. ? Biking at an easy pace. Most people should get at least 150 minutes of moderate-intensity exercise a week to maintain their body weight. Vigorous-intensity exercise Vigorous-intensity exercise is any activity that gets you moving enough to burn at least six times more calories than if you were sitting. When you exercise at this intensity, you should be working hard enough that you are not able to carry on a conversation. Examples of vigorous exercise include: ? Running. ? Playing a team sport, such as football, basketball, and soccer. ? Jumping rope. Most people should get at least 75 minutes a week of vigorous exercise to maintain their body weight. What actions can I take to lose weight? The amount of exercise you need to lose weight depends on: ? Your age. ? The type of exercise. ? Any health conditions you have. ? Your overall physical ability. Talk to your health care provider about how much exercise you need and what types of activities are safe for you. Nutrition ? Make changes to your diet as told by your health care provider or diet and nutrition worker (dietitian). This may include: ? Eating fewer calories. ? Eating more protein. ? Eating less unhealthy fats. ? Eating a diet that includes fresh fruits and vegetables, whole grains, low-fat dairy products, and lean protein. ? Avoiding foods with added fat, salt, and sugar. ? Drink plenty of water while you exercise to prevent dehydration or heat stroke. Activity ? Choose an activity that you enjoy and set realistic goals. Your health care provider can help you make an exercise plan that works for you. ? Exercise at a moderate or vigorous intensity most days of the week. ? The intensity of exercise may vary from person to person. You can tell how intense a workout is for you by paying attention to your breathing and heartbeat. Most people will notice their breathing and heartbeat get faster with more intense exercise. ? Do resistance training twice each week, such as: ? Push-ups. ? Sit-ups. ? Lifting weights. ? Using resistance bands. ? Getting short amounts of exercise can be just as helpful as long, structured periods of exercise. If you have trouble finding time to exercise, try doing these things as part of your daily routine: ? Get up, stretch, and walk around every 30 minutes throughout the day. ? Go for a walk during your lunch break. ? Park your car farther away from your destination. ? If you take public transportation, get off one stop early and walk the rest of the way. ? Make phone calls while standing up and walking around. ? Take the stairs instead of elevators or escalators. ? Wear comfortable clothes and shoes with good support. ? Do not exercise so much that you hurt yourself, feel dizzy, or get very short of breath. Where to find more information ? [place] Department of Health and Human Services: www.hhs.gov ? Centers for Disease Control and Prevention: www.cdc.gov Contact a health care provider: ? Before starting a new exercise program. ? If you have questions or concerns about your weight. ? If you have a medical problem that keeps you from exercising. Get help right away if: ? You have any of the following while exercising: ? Injury. ? Dizziness. ? Difficulty breathing or shortness of breath that does not go away when you stop exercising. ? Chest pain. ? Rapid heartbeat. These symptoms may represent a serious problem that is an emergency. Do not wait to see if the symptoms will go away. Get medical help right away. Call your local emergency services (911 in the [place] Do not drive yourself to the hospital. Summary ? Getting regular exercise is e (more content not included)... Normal [facility] Patient Educationon 06-21-19 Patient Education Endocrinology Blood Glucose Monitoring, Adult Monitoring your blood sugar (glucose) is an important part of managing your diabetes. Blood glucose monitoring involves checking your blood glucose as often as directed and keeping a log or record of your results over time. Checking your blood glucose regularly and keeping a blood glucose log can: ? Help you and your health care provider adjust your diabetes management plan as needed, including your medicines or insulin. ? Help you understand how food, exercise, illnesses, and medicines affect your blood glucose. ? Let you know what your blood glucose is at any time. You can quickly find out if you have low blood glucose (hypoglycemia) or high blood glucose (hyperglycemia). Your health care provider will set individualized treatment goals for you. Your goals will be based on your age, other medical conditions you have, and how you respond to diabetes treatment. Generally, the goal of treatment is to maintain the following blood glucose levels: ? Before meals (preprandial): 80?130 mg/dL (4.4?7.2 mmol/L). ? After meals (postprandial): below 180 mg/dL (10 mmol/L). ? A1C level: less than 7%. Supplies needed: ? Blood glucose meter. ? Test strips for your meter. Each meter has its own strips. You must use the strips that came with your meter. ? A needle to prick your finger (lancet). Do not use a lancet more than one time. ? A device that holds the lancet (lancing device). ? A journal or log book to write down your results. How to check your blood glucose Checking your blood glucose 1. Wash your hands for at least 20 seconds with soap and water. 2. Prick the side of your finger (not the tip) with the lancet. Do not use the same finger consecutively. 3. Gently rub the finger until a small drop of blood appears. 4. Follow instructions that come with your meter for inserting the test strip, applying blood to the strip, and using your blood glucose meter. 5. Write down your result and any notes in your log. Using alternative sites Some meters allow you to use areas of your body other than your finger (alternative sites) to test your blood. The most common alternative sites are the forearm, the thigh, and the palm of your hand. Alternative sites may not be as accurate as the fingers because blood flow is slower in those areas. This means that the result you get may be delayed, and it may be different from the result that you would get from your finger. Use the finger only, and do not use alternative sites, if: ? You think you have hypoglycemia. ? You sometimes do not know that your blood glucose is getting low (hypoglycemia unawareness). General tips and recommendations Blood glucose log ? Every time you check your blood glucose, write down your result. Also write down any notes about things that may be affecting your blood glucose, such as your diet and exercise for the day. This information can help you and your health care provider: ? Look for patterns in your blood glucose over time. ? Adjust your diabetes management plan as needed. ? Check if your meter allows you to download your records to a computer or if there is an kennedy for the meter. Most glucose meters store a record of glucose readings in the meter. If you have type 1 diabetes: ? Check your blood glucose 4 or more times a day if you are on intensive insulin therapy with multiple daily injections (MDI) or if you are using an insulin pump. Check your blood glucose: ? Before every meal and snack. ? Before bedtime. ? Also check your blood glucose: ? If you have symptoms of hypoglycemia. ? After treating low blood glucose. ? Before doing activities that create a risk for injury, like driving or using machinery. ? Before and after exercise. ? Two hours after a meal. ? Occasionally between 2:00 a.m. and 3:00 a.m., as directed. ? You may need to check your blood glucose more often, 6?10 times per day, if: ? You have diabetes that is not well controlled. ? You are ill. ? You have a history of severe hypoglycemia. ? You have hypoglycemia unawareness. If you have type 2 diabetes: ? Check your blood glucose 2 or more times a day if you take insulin or other diabetes medicines. ? Check your blood glucose 4 or more times a day if you are on intensive insulin therapy. Occasionally, you may also need to check your glucose between 2:00 a.m. and 3:00 a.m., as directed. ? Also check your blood glucose: ? Before and after exercise. ? Before doing activities that create a risk for injury, like driving or using machinery. ? You may need to check your blood glucose more often if: ? Your medicine is being adjusted. ? Your diabetes is not well controlled. ? You are ill. General tips ? Make sure you always have your supplies with you. ? After you use a few boxes of test strips, adjust (calibrate) your blood glucose meter by following in (more content not included)... [facility] Lab Reportson 06-20-2023 Lab Reports [id number] [facility] Consultation Noteon 06-19-19 Consultation Note [id number]#[id number] [facility] 25(OH)D3 SerPl-ncon 2023 25-hydroxyvitamin D3 [Mass/Vol] 24.7 ng/mL Low 31.0-80.0 [facility] Comment on above: Order Comment: Speci men Type: BLOOD SPECIMEN Ordering Facility: [facility] Address: [address] [place] [address] Result Comment: Clas sification of 25 OH Vitamin D status: Deficiency/Insufficiency: < or = 30 ng/ml. Sufficiency/Optimal Levels: 31-80 ng/mL Toxicity: > 100 ng/mL. Test performed by chemiluminescent immunoassay. Performed By: #### 5 0190-8, 9, 2275-07, 2283-11 #### [facility] CLIA [id number] [address] [place] [address] [place] CBC W Auto Differential pane l (Bld)on 06-15-2023 Basophils (Bld) [#/Vol] 0.03 10*3/uL Normal <0.11 [facility] Comment on above: Order Comment: Speci men Type: BLOOD SPECIMEN Ordering Facility: [facility] Address: [address] [place] [address] Performed By: #### 5 0190-8, 2131-12, 2275-07, 2283-11 #### [facility] CLIA [id number] [address] [place] [address] [place] Basophils/100 WBC (Bld) 0.4 % Normal [facility] Comment on above: Order Comment: Speci men Type: BLOOD SPECIMEN Ordering Facility: [facility] Address: [address] [place] [address] Performed By: #### 5 0190-8, 9, 2275-07, 2283-11 #### [facility] CLIA [id number] [address] [place] [address] [place] Differential cell count method Nom (Bld) Auto Normal [facility] Comment on above: Order Comment: Speci men Type: BLOOD SPECIMEN Ordering Facility: [facility] Address: [address] [place] [address] Performed By: #### 5 0190-8, 9, 2275-07, 2283-11 #### [facility] CLIA [id number] [address] [place] [address] [place] Eosinophils (Bld) [#/Vol] 0.08 10*3/uL Normal <0.46 [facility] Comment on above: Order Comment: Speci men Type: BLOOD SPECIMEN Ordering Facility: [facility] Address: [address] [place] [address] Performed By: #### 5 0190-8, 9, 2275-07, 2283-11 #### [facility] CLIA [id number] [address] [place] [address] [place] Eosinophils/100 WBC (Bld) 1.0 % Normal [facility] Comment on above: Order Comment: Speci men Type: BLOOD SPECIMEN Ordering Facility: [facility] Address: [address] [place] [address] Performed By: #### 5 0190-8, 9, 2275-07, 2283-11 #### [facility] CLIA [id number] [address] [place] [address] [place] Erythrocyte distribution width (RBC) [Ratio] 13.4 % Normal 11.5-15.0 [facility] Comment on above: Order Comment: Speci men Type: BLOOD SPECIMEN Ordering Facility: [facility] Address: [address] [place] [address] Performed By: #### 5 0190-8, 9, 2275-07, 2283-11 #### [facility] CLIA [id number] [address] [place] [address] [place] Hematocrit (Bld) [Volume fraction] 39.2 % Normal 36.0-46.0 [facility] Comment on above: Order Comment: Speci men Type: BLOOD SPECIMEN Ordering Facility: [facility] Address: [address] [place] [address] Performed By: #### 5 0190-8, 9, 2275-07, 2283-11 #### [facility] CLIA [id number] [address] [place], [place] [address] [place] Hemoglobin (Bld) [Mass/Vol] 13.4 g/dL Normal 11.5-15.5 [facility] Comment on above: Order Comment: Speci men Type: BLOOD SPECIMEN Ordering Facility: [facility] Address: [address] [place] [address] Performed By: #### 5 0190-8, 9, 2275-07, 2283-11 #### [facility] CLIA [id number] [address] [place] [address] [place] Immature granulocytes (Bld) [#/Vol] 10*3/uL Normal <0.10 [facility] Comment on above: Order Comment: Speci men Type: BLOOD SPECIMEN Ordering Facility: [facility] Address: [address] [place] [address] Performed By: #### 5 0190-8, 9, 2275-07, 2283-11 #### [facility] CLIA [id number] [address] [place] [address] [place] Immature granulocytes/100 WBC (Bld) 0.2 % Normal [facility] Comment on above: Order Comment: Speci men Type: BLOOD SPECIMEN Ordering Facility: [facility] Address: [address] [place] [address] Performed By: #### 5 0190-8, 9, 2275-07, 2283-11 #### [facility] CLIA [id number] [address] [place], [place] [address] [place] Lymphocytes (Bld) [#/Vol] 2.96 10*3/uL Normal 1.00-4.00 [facility] Comment on above: Order Comment: Speci men Type: BLOOD SPECIMEN Ordering Facility: [facility] Address: [address] [place] [address] Performed By: #### 5 0190-8, 9, 2275-07, 2283-11 #### [facility] CLIA [id number] [address] [place] [address] [place] Lymphocytes/100 WBC (Bld) 36.8 % Normal [facility] Comment on above: Order Comment: Speci men Type: BLOOD SPECIMEN Ordering Facility: [facility] Address: [address] [place] [address] Performed By: #### 5 0190-8, 2131-12, 2275-07, 2283-11 #### [facility] CLIA [id number] [address] [place] [address] [place] MCH (RBC) [Entitic mass] 29.4 pg Normal 26.0-34.0 [facility] Comment on above: Order Comment: Speci men Type: BLOOD SPECIMEN Ordering Facility: [facility] Address: [address] [place] [address] Performed By: #### 5 0190-8, 2131-12, 2275-07, 2283-11 #### [facility] CLIA [id number] [address] [place] [address] [place] MCHC (RBC) [Mass/Vol] 34.2 g/dL Normal 30.5-36.0 [facility] Comment on above: Order Comment: Speci men Type: BLOOD SPECIMEN Ordering Facility: [facility] Address: [address] [place] [address] Performed By: #### 5 0190-8, 2131-12, 2275-07, 2283-11 #### [facility] CLIA [id number] [address] [place] [address] [place] MCV (RBC) [Entitic vol] 86.0 fL Normal 80.0-100.0 [facility] Comment on above: Order Comment: Speci men Type: BLOOD SPECIMEN Ordering Facility: [facility] Address: [address] [place] [address] Performed By: #### 5 01908, 2131-12, 2275-07, 2283-11 #### [facility] CLIA [id number] [address] [place] [address] [place] Monocytes (Bld) [#/Vol] 0.45 10*3/uL Normal <0.87 [facility] Comment on above: Order Comment: Speci men Type: BLOOD SPECIMEN Ordering Facility: [facility] Address: [address] [place] [address] Performed By: #### 5 019-8, 2131-12, 2275-07, 2283-11 #### [facility] CLIA [id number] [address] [place] [address] [place] Monocytes/100 WBC (Bld) 5.6 % Normal [facility] Comment on above: Order Comment: Speci men Type: BLOOD SPECIMEN Ordering Facility: [facility] Address: [address] [place] [address] Performed By: #### 5 0190-8, 2131-12, 2275-07, 2283-11 #### [facility] CLIA [id number] [address] [place] [address] [place] Neutrophils (Bld) [#/Vol] 4.50 10*3/uL Normal 1.45-7.50 [facility] Comment on above: Order Comment: Speci men Type: BLOOD SPECIMEN Ordering Facility: [facility] Address: [address] [place] [address] Performed By: #### 5 0190-8, 2131-12, 2275-07, 2283-11 #### [facility] CLIA [id number] [address] [place] [address] [place] Neutrophils/100 WBC (Bld) 56.0 % Normal [facility] Comment on above: Order Comment: Speci men Type: BLOOD SPECIMEN Ordering Facility: [facility] Address: [address] [place] [address] Performed By: #### 5 0190-8, 2131-12, 4, 2283-11 #### [facility] CLIA [id number] [address] [place] [address] [place] Nucleated RBC (Bld) [#/Vol] 10*3/uL Normal <0.01 [facility] Comment on above: Order Comment: Speci men Type: BLOOD SPECIMEN Ordering Facility: [facility] Address: [address] [place] [address] Performed By: #### 5 0190-8, 9, 4, 2283-11 #### [facility] CLIA [id number] [address] [place] [address] [place] Nucleated RBC/100 WBC (Bld) [Ratio] 0.0 /100 WBC Normal [facility] Comment on above: Order Comment: Speci men Type: BLOOD SPECIMEN Ordering Facility: [facility] Address: [address] [place] [address] Performed By: #### 5 0190-8, 9, 2275-07, 2283-11 #### [facility] CLIA [id number] [address] [place] [address] [place] Platelet mean volume (Bld) [Entitic vol] 9.8 fL Normal 9.0-12.7 [facility] Comment on above: Order Comment: Speci men Type: BLOOD SPECIMEN Ordering Facility: [facility] Address: [address] [place] [address] Performed By: #### 5 0190-8, 9, 2275-07, 2283-11 #### [facility] CLIA [id number] [address] [place] [address] [place] Platelets (Bld) [#/Vol] 348 10*3/uL Normal 150-400 [facility] Comment on above: Order Comment: Speci men Type: BLOOD SPECIMEN Ordering Facility: [facility] Address: [address] [place] [address] Performed By: #### 5 0190-8, 2131-9, 6-4, 2283-8 #### [facility] CLIA [id number] [address] [place] [address] [place] RBC (Bld) [#/Vol] 4.56 10*6/uL Normal 3.90-5.20 [facility] Comment on above: Order Comment: Speci men Type: BLOOD SPECIMEN Ordering Facility: [facility] Address: [address] [place] [address] Performed By: #### 5 0190-8, 2131-9, 6-4, 2283-8 #### [facility] CLIA [id number] [address] [place] [address] [place] WBC (Bld) [#/Vol] 8.04 10*3/uL Normal 3.70-11.00 [facility] Comment on above: Order Comment: Speci men Type: BLOOD SPECIMEN Ordering Facility: [facility] Address: [address] [place] [address] Performed By: #### 5 0190-8, 2131-9, 2275-4, 8 #### [facility] CLIA [id number] [address] [place] [address] [place] CNOVSPon 06-15-2023 CNOVS Visit (SP) Office ([facility]) -- MADHU RENDON ([id number]) 1985 F Date Time Provider Department 06/15/23 2:00 PM SALVADOR CALIX During your visit today, we recorded the following information about you: Temperature Pulse Respiration Blood pressure 97.4 degrees 87/minute 16/minute 147/75 Weight Height 108.1 kg 1.677 m Salvador Calix MD 06/17/2023 9:02 AM Signed NAME: Madhu Rendon CLINIC NO.: [id number] DATE OF SERVICE: June 15, 2023 (Levon) Some elements in this clinic note that are critical to medical decision making have been carefully reviewed and included from a prior clinic note dated: May 31, 2023 (Brendaelaina) Additional Clinicians involved in Madhu Rendon's care: Drs. Herrmann, Jorge Monge, Humaira Gaviria, Dr. Boothe CC: hypercoag state. ASSESSMENT: 37 year old woman 25 weeks presents with a prior history of CVA in 2016 and an antiphospholipid antibody that was identified much later in 2018. These were found in [place], [place]. I don't have access to these results. Patient believes that she has anticardiolipin antibodies but wasn't sure. She has been on Plavix for approximately year and a half and had bled heavily on aspirin preceding this. She currently has no evidence of active thrombosis. We had discussed the potential etiology of antiphospholipid antibodies in the context of her symptoms which preceded her diagnosis by approximately 2 years presenting as a CVA. At some point in time she had a vW disease workup but we don't have that specific data from prior workup. After discussion with her neurologist, Dr. Jorge Monge, we put her on prophylactic dose Lovenox throughout her prior but is now again and at 25 weeks. Had difficulty with associated diabetes. Recalls having had a target-like rash shortly before presenting to [place] in 2016 with headaches and was diagnosed with a CVA. - She saw Dr. Baugh but no relevant conclusion was made. She remains on Lovenox - still breast feeding. No clinical need to recheck her APL Ab or Cardiolipin Ab's as results will not change our treatment plan. PLAN: Triage to call lab results Please see Dr. Jroge Monge - for vision changes and numbness of face Continue Lovenox - patient prefers 40 mg (rather than rec 80mg) Encouraged her to reconsider Take B12 supplement in the form of a sublingual tablet RTC in 3 months Labs same day Vitamin D, TSH, Calcium with CMP _- ____ HPI: Updated Visit, June 15, 2023: Madhu returns today with her youngest two children. She is still breast feeding. Numbness and vision changes both have subsided, she still plans to see Dr. Monge soon. When she had a stoke in [place], she had symptoms up to a month before: uncontrollable headache, BP was elevated, knee stiffness, and blurry vision. Right facial drooping and difficulty speaking sent her to the hospital. She continues to take vitamins. Updated Visit, May 31, 2023: Virtual Visit Shadow over right eye and some numbness of her face. Feels like she's getting itchy under her skin - intermittent electric-shocks . Abdominal contractions that feel like labor but not low in the pelvis. Weight is unchanged and she is having trouble losing weight. Feels she has a lot of fullness in her neck/throat. Could not operate her video. Updated Visit, March 19, 2023: Virtual Visit: Doing ok but is getting sick. Was not able to connect video. Vitamin D is low. Having trouble with blood sugars Baby and all kids doing well. Still breast feeding. Updated Visit, December 22, 2022: Virtual visit Had a few more bloody bowel movements after we spoke last time. But resolved more than a month ago. Labs are good - no need for iron . B12 is on the lower end of normal. Otherwise and I think unrelated - weak, urinating a lot and mouth is dry all the time for the past few days. Updated Visit, September 28, 2022: Virtual Visit Had blood with BM x2 - has had this before and stayed on Lovenox Hgb 13.1 @ [facility] Recommended ER if persisting bleeding but she would prefer to stay on Lovenox for now. Updated Visit, July 27, 2022: Madhu returns today and has 2 of her youngest children with her. She didn't hemorrhage with her most recent delivery and has a healthy baby girl age 11 weeks. Her 3 year old son is with her too. Joints ache but perhaps related to 4 children 14- 11 weeks. Updated Visit, March 27, 2022: Madhu is 36 years old and is doing well with her current maintain on low-dose prophylactic Lovenox. Doing well overall but is having some bleeding following oral iron therapy due to constipation. May qualify for IV iron which will help her. She hemorrhaged after her last and r (more content not included)... Normal [facility] 06-15-2023 CNPN Telephone ([facility]) -- MADHU RENDON ([id number]) 1985 F Date Time Provider Department 06/15/23 SALVADOR CALIX NCCVAIBHAV During your visit today, we recorded the following information about you: Harjit Haskins 06/15/2023 2:37 PM Signed Triage to call lab results Naga Leon RN 06/18/2023 8:42 AM Signed Please review labs and advise Salvador Calix MD 06/19/2023 12:00 PM Signed While she's not anemic, she is iron deficient and should be taking oral iron replacement -once daily any OTC formulation is fine. She is also low on Vitamin D - should take D3 5000 international unit(s) daily. Her TSH is high indicating low thyroid function - this should be addressed by her PCP please. Naga Johnson RN 06/19/2023 12:23 PM Signed Attempted both phone numbers. No answer/VM full MARSHA Rush Natalie, MARSHA 06/19/2023 12:27 PM Signed [employer] message sent MARSHA Rush Natalie, RN 06/19/2023 1:06 PM Signed Pt called back and aware of [employer]'s message. She is agreeable to POC and denies further needs at this time. She will call PCP to follow up on TSH Naga Johnson RN Allergies As of Date: 06/15/2023 Noted Allergy Reaction CIPROFLOXACIN 05/19/2019 14 - Other: See Comments 16 - Unknown Comments: Dizziness, weakness sweating CIPROFLOXACIN-FLUOCINOLONE 05/19/2019 14 - Other: See Comments Comments: Dizziness, weakness sweating LACTOSE 09/10/2017 8 - GI Upset Comments: Diarrhea SEASONAL ALLERGIES 05/05/2020 8 - GI Upset 14 - Other: See Comments LACTALBUMIN 05/25/2017 16 - Unknown 8 - GI Upset Comments: Crampy and gassy MILK 05/25/2017 14 - Other: See Comments Comments: Crampy and gassy Diarrhea Other reaction(s): GI Upset Crampy and gassy MILK CONTAINING PRODUCTS (DAIRY) 05/25/2017 14 - Other: See Comments Comments: Crampy and gassy Diarrhea Other reaction(s): GI Upset Crampy and gassy Date Reviewed: 06/15/2023 Reviewed by: Serina Dawson MA - Fully Assessed Reason for Visit: Results [95] Prescriptions as of 06/19/2023 - enoxaparin (LOVENOX) 40 mg/0.4 mL INJECT THE CONTENTS OF ONE SYRINGE (0.4 ML) SUBCUTANEOUSLY EVERY 24 HOURS - metFORMIN ER (GLUCOPHAGE XR) 500 mg 24 hr tablet - PRO FE 180 mg iron cap - levothyroxine (SYNTHROID) 25 mcg tablet Take 25 mcg by mouth. - multivitamin tablet Take 1 tablet by mouth once daily. 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] 08/01/2022 Encounter Status:Closed by NAGA JOHNSON on 06/19/23 Normal [facility] Calcium.ionized [Moles/Vol]o n 06-15-2023 Calcium.ionized (Bld) [Mass/Vol] 1.28 mmol/L Normal 1.08-1.30 [facility] Comment on above: Order Comment: Speci men Type: BLOOD SPECIMEN Ordering Facility: External Sub[facility] Address: , , Performed By: #### 1 995-0 #### [facility] CLIA [id number] [address] [place] [address] [place] Calcium.ionized adjusted to pH 7.4 (Bld) [Moles/Vol] 1.31 mmol/L High 1.08-1.30 [facility] Comment on above: Order Comment: Speci men Type: BLOOD SPECIMEN Ordering Facility: [facility] Address: , , Performed By: #### 1 995-0 #### [facility] CLIA [id number] [address] [place] [address] [place] Comprehensive metabolic 2000 panelon 06-15-2023 Albumin [Mass/Vol] 4.8 g/dL Normal 3.9-4.9 [facility] Comment on above: Order Comment: Speci men Type: BLOOD SPECIMEN Ordering Facility: [facility] Address: [address] [place] [address] Performed By: #### 5 0190-8, 2131-9, 2275-4, 8 #### [facility] CLIA [id number] [address] [place] [address] [place] ALP [Catalytic activity/Vol] 100 U/L Normal 34-123 [facility] Comment on above: Order Comment: Speci men Type: BLOOD SPECIMEN Ordering Facility: [facility] Address: [address] [place] [address] Performed By: #### 5 0190-8, 2131-9, 2275-4, 2283-8 #### [facility] CLIA [id number] [address] [place] [address] [place] ALT [Catalytic activity/Vol] 36 U/L Normal 7-38 [facility] Comment on above: Order Comment: Speci men Type: BLOOD SPECIMEN Ordering Facility: [facility] Address: [address] [place] [address] Performed By: #### 5 0190-8, 9, 2275-4, 8 #### [facility] CLIA [id number] [address] [place] [address] [place] Anion gap [Moles/Vol] 13 mmol/L Normal 9-18 [facility] Comment on above: Order Comment: Speci men Type: BLOOD SPECIMEN Ordering Facility: [facility] Address: [address] [place] [address] Performed By: #### 5 0190-8, 9, 4, 8 #### [facility] CLIA [id number] [address] [place] [address] [place] AST [Catalytic activity/Vol] 23 U/L Normal 13-35 [facility] Comment on above: Order Comment: Speci men Type: BLOOD SPECIMEN Ordering Facility: [facility] Address: [address] [place] [address] Performed By: #### 5 0190-8, 9, 4, 8 #### [facility] CLIA [id number] [address] [place] [address] [place] Bilirubin [Mass/Vol] 0.2 mg/dL Normal 0.2-1.3 [facility] Comment on above: Order Comment: Speci men Type: BLOOD SPECIMEN Ordering Facility: [facility] Address: [address] [place] [address] Performed By: #### 5 0190-8, 9, 2275-4, 8 #### [facility] CLIA [id number] [address] [place], [place] [address] [place] Calcium [Mass/Vol] 9.9 mg/dL Normal 8.5-10.2 [facility] Comment on above: Order Comment: Speci men Type: BLOOD SPECIMEN Ordering Facility: [facility] Address: [address] [place] [address] Performed By: #### 5 0190-8, 9, 2275-4, 8 #### [facility] CLIA [id number] [address] [place] [address] [place] Chloride [Moles/Vol] 103 mmol/L Normal 97-105 [facility] Comment on above: Order Comment: Speci men Type: BLOOD SPECIMEN Ordering Facility: [facility] Address: [address] [place] [address] Performed By: #### 5 0190-8, 9, 4, 8 #### [facility] CLIA [id number] [address] [place] [address] [place] CO2 [Moles/Vol] 22 mmol/L Normal 22-30 [facility] Comment on above: Order Comment: Speci men Type: BLOOD SPECIMEN Ordering Facility: [facility] Address: [address] [place] [address] Performed By: #### 5 0190-8, 9, 4, 8 #### [facility] CLIA [id number] [address] [place] [address] [place] Creatinine [Mass/Vol] 0.78 mg/dL Normal 0.58-0.96 [facility] Comment on above: Order Comment: Speci men Type: BLOOD SPECIMEN Ordering Facility: [facility] Address: [address] [place] [address] Performed By: #### 5 0190-8, 9, 4, 8 #### [facility] CLIA [id number] [address] [place] [address] [place] Creatinine and Glomerular filtration rate.predicted panel (S/P/Bld) 100 mL/min/1.73m??? Normal >=60 [facility] Comment on above: Order Comment: Cesar redd Type: BLOOD SPECIMEN Ordering Facility: [facility] Address: [address] [place] [address] Result Comment: Hawa mated Glomerular Filtration Rate (eGFR) is calculated using the 2020 CKD-EPI creatinine equation. This equation utilizes serum creatinine, sex, and age as parameters. The creatinine assay has traceable calibration to isotope dilution-mass spectrometry. Refer to KDIGO guidelines for clinical interpretation. In patients with unstable renal function, e.g. those with acute kidney injury, the eGFR may not accurately reflect actual GFR. Performed By: #### 5 0190-8, 9, 2275-4, 8 #### [facility] CLIA [id number] [address] [place] [address] [place] Glucose [Mass/Vol] 134 mg/dL High 74-99 [facility] Comment on above: Order Comment: Cesar redd Type: BLOOD SPECIMEN Ordering Facility: [facility] Address: [address] [place] [address] Result Comment: The [place] Diabetes Association (ADA) provides guidance for cutoff values for fasting glucose and random glucose. The ADA defines fasting as no caloric intake for at least 8 hours. Fasting plasma glucose results between 100 to 125 mg/dL indicate increased risk for diabetes (prediabetes). Fasting plasma glucose results greater than or equal to 126 mg/dL meet the criteria for diagnosis of diabetes. In the absence of unequivocal hyperglycemia, results should be confirmed by repeat testing. In a patient with classic symptoms of hyperglycemia or hyperglycemic crisis, random plasma glucose results greater than or equal to 200 mg/dL meet the criteria for diagnosis of diabetes. Reference: Standards of Medical Care in Diabetes 2016, [place] Diabetes Association. Diabetes Care. 2016.39(Suppl 1). Performed By: #### 5 0190-8, 2131-9, 6-4, 2283-8 #### [facility] CLIA [id number] [address] [place] [address] [place] Potassium [Moles/Vol] 3.8 mmol/L Normal 3.7-5.1 [facility] Comment on above: Order Comment: Speci men Type: BLOOD SPECIMEN Ordering Facility: [facility] Address: [address] [place] [address] Performed By: #### 5 0190-8, 9, 2275-4, 8 #### [facility] CLIA [id number] [address] [place] [address] [place] Protein [Mass/Vol] 7.8 g/dL Normal 6.3-8.0 [facility] Comment on above: Order Comment: Speci men Type: BLOOD SPECIMEN Ordering Facility: [facility] Address: [address] [place] [address] Performed By: #### 5 0190-8, 9, 2275-07, 2283-11 #### [facility] CLIA [id number] [address] [place] [address] [place] Sodium [Moles/Vol] 138 mmol/L Normal 136-144 [facility] Comment on above: Order Comment: Speci men Type: BLOOD SPECIMEN Ordering Facility: [facility] Address: [address] [place] [address] Performed By: #### 5 0190-8, 9, 4, 2283-11 #### [facility] CLIA [id number] [address] [place] [address] [place] Urea nitrogen [Mass/Vol] 11 mg/dL Normal 7-21 [facility] Comment on above: Order Comment: Speci men Type: BLOOD SPECIMEN Ordering Facility: [facility] Address: [address] [place] [address] Performed By: #### 5 0190-8, 9, 2275-4, 8 #### [facility] CLIA [id number] [address] [place] [address] [place] [facility] Ferritin [Mass/Vol] 57.6 ng/mL Normal 14.7-205.1 [facility] Comment on above: Order Comment: Cesar redd Type: BLOOD SPECIMEN Ordering Facility: [facility] Address: [address] [place] [address] Performed By: #### 5 0190-8, 9, 2275-07, 2283-11 #### [facility] CLIA [id number] [address] [place] [address] [place] [facility]19 24 Folate [Mass/Vol] ng/mL Normal >4.7 [facility] Comment on above: Order Comment: Cesar redd Type: BLOOD SPECIMENOrdering Facility: External Submitter Address: , , Result Comment: A re sult of > 20 ng/mL is not necessarily indicative of a pathologic or treatable condition: it reflects a limitation of the test methodology. Assay reference range: 4.8 to 24.2 ng/mL. Suitable for detection of folate deficiency. Reference: Folate III (Folate III) [package insert V 1.0 Nauruan]. [facility], [place], [place]: February 2015. Performed By: #### 2 284-8, 2731-8, 2131-12 ####[facility] [id number] [place] [address] [place] Iron and Iron binding capaci panelon 06-15-2023 Iron [Mass/Vol] 59 ug/dL Normal 41-186 [facility] Comment on above: Order Comment: Cesar redd Type: BLOOD SPECIMEN Ordering Facility: [facility] Address: [address] [place] [address] Performed By: #### 5 0190-8, 9, 2275-07, 2283-11 #### [facility] CLIA [id number] [address] [place] [address] [place] Iron binding capacity [Mass/Vol] 408 ug/dL High 232-386 [facility] Comment on above: Order Comment: Speci men Type: BLOOD SPECIMEN Ordering Facility: [facility] Address: [address] [place] [address] Performed By: #### 5 0190-8, 9, 2275-4, 8 #### [facility] CLIA [id number] [address] [place] [address] [place] Iron/TIBC [Molar ratio] 14.5 % Low 15.0-57.0 [facility] Comment on above: Order Comment: Speci men Type: BLOOD SPECIMEN Ordering Facility: [facility] Address: [address] [place] [address] Performed By: #### 5 0190-8, 9, 2275-4, 2283-11 #### [facility] CLIA [id number] [address] [place] [address] [place] PTH-Intact SerPl-mCncon - Parathyrin.intact [Mass/Vol] 47 pg/mL Normal 15-65 [facility] Comment on above: Order Comment: Jenniferi tramaine Type: BLOOD SPECIMENOrdering Facility: External Submitter Address: , , Performed By: #### 2 284-8, 5501-8, 2131-12 ####[facility] [id number] [place] [address] [place] TSH SerPl-aCncon 06-15-2023 TSH Qn 4.730 m[IU]/L High 0.270-4.200 [facility] Comment on above: Order Comment: Jenniferi men Type: BLOOD SPECIMEN Ordering Facility: [facility] Address: [address] [place] [address] Result Comment: If t he patient is , TSH reference range varies by gestational period: First Trimester (weeks 9-12): 0.180-2.990 mIU/L Second Trimester: 0.110-3.980 mIU/L Third Trimester: 0.480-4.710 mIU/L Danny Varela et al. A Practical Approach for the Verifications and Determination of Site- and Trimester-Specific Reference Intervals for Thyroid Function tests in . Thyroid, 2019:29:3:412-420. Saeed Pan, et al. 2017 Guidelines of the [place] Thyroid Association for the Diagnosis and Management of Thyroid Disease during and the . Thyroid, 2017:27:3:315-389. Performed By: #### 5 0190-8, 2139, 2276-4, 2284-8 #### [facility] CLIA [id number] [address] [facility] [place] [place] [address] [place] Vit B12 SerPl-mCncon 06-15- 024 Cobalamin (Vitamin B12) [Mass/Vol] 404 pg/mL Normal 232-1245 [facility] Comment on above: Order Comment: Speci men Type: BLOOD SPECIMENOrdering Facility: External Submitter Address: , , Performed By: #### 2 284-8, 1551-8, 6549-4 ####[facility] [id number] [facility] [address] [place] CNPRosaura 06-11-2023 BE[facility] Telephone (HEMASA) -- MADHU RENDON ([id number]) 1985 F Date Time Provider Department 06/11/23 SALVADOR CALIX During your visit today, we recorded the following information about you: Ebony Redding Ma 06/11/2023 10:43 AM Signed Labs for appointment on 06/15. Ebony Redding Ma Allergies As of Date: 06/11/2023 Noted Allergy Reaction CIPROFLOXACIN 05/19/2019 14 - Other: See Comments 16 - Unknown Comments: Dizziness, weakness sweating CIPROFLOXACIN-FLUOCINOLONE 05/19/2019 14 - Other: See Comments Comments: Dizziness, weakness sweating LACTOSE 09/10/2017 8 - GI Upset Comments: Diarrhea SEASONAL ALLERGIES 05/05/2020 8 - GI Upset 14 - Other: See Comments LACTALBUMIN 05/25/2017 16 - Unknown 8 - GI Upset Comments: Crampy and gassy MILK 05/25/2017 14 - Other: See Comments Comments: Crampy and gassy Diarrhea Other reaction(s): GI Upset Crampy and gassy MILK CONTAINING PRODUCTS (DAIRY) 05/25/2017 14 - Other: See Comments Comments: Crampy and gassy Diarrhea Other reaction(s): GI Upset Crampy and gassy Date Reviewed: 07/27/2022 Reviewed by: Valery Garcia - Fully Assessed Reason for Visit: Lab Orders [1688] Primary Visit Diagnosis:Vitamin D deficiency [E55.9] Other Visit Diagnoses:Hypercalcemia [E83.52] 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] Antiphospholipid antibody syndrome (HCC) [D68.61] Malaise and fatigue [R53.81, R53.83] Order(s):CBC + DIFF [SQCBCDIF] Order #: [id number] FUTURE COMP METABOLIC PANEL [SQCMP] Order #: [id number] FUTURE IRON + TIBC [SQIRON] Order #: [id number] FUTURE FERRITIN BLD [SQFERR] Order #: [id number] FUTURE VITAMIN B12 BLOOD [SQB12] Order #: [id number] FUTURE FOLATE SERUM [SQSERFOL] Order #: [id number] FUTURE TSH BLD [SQTSH] Order #: [id number] FUTURE VITAMIN D 25 HYDROXY [SQVITD] Order #: [id number] FUTURE CALCIUM IONIZED BLOOD [SQICA] Order #: [id number] FUTURE PTH, INTACT (WITHOUT CALCIUM) [6993488] Order #: [id number] FUTURE PTH, INTACT (WITHOUT CALCIUM) [4415149] Order #: [id number] Prescriptions as of 06/12/2023 - enoxaparin (LOVENOX) 40 mg/0.4 mL INJECT THE CONTENTS OF ONE SYRINGE (0.4 ML) SUBCUTANEOUSLY EVERY 24 HOURS - metFORMIN ER (GLUCOPHAGE XR) 500 mg 24 hr tablet - PRO FE 180 mg iron cap - levothyroxine (SYNTHROID) 25 mcg tablet Take 25 mcg by mouth. - multivitamin tablet Take 1 tablet by mouth once daily. 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 Peng Monge / Neurology / Yadi Dx: vision changes and numbness of face. Pt states that it has been a few years since she was last seen by him. [facility] [address], [place] Bhavna, Please fax records Andres, Please follow up on this appt. Thank you Nicol Avila 06/04/2023 9:12 AM Signed Bhavna: Information ready for you. Nicol Salgado [facility] 06/06/2023 8:37 AM Signed Records faxed. Christy SalgadoJenniferen 06/07/2023 10:[address] Monge office spoke with Ingrid. She states they have received this referral and are working with Dr. Monge see when to schedule patient. Right now they are looking at possibly getting patient scheduled sometime next week. I will call back next week to check the status of this appointment. Nicol Salgado Jennifer Avilaen 06/11/2023 9:[address] Monge office spoke with Brinda. Patient is scheduled to see Dr Monge on 06/20. Nicol Salgado Allergies As of Date: 06/01/2023 Noted Allergy Reaction CIPROFLOXACIN 05/19/2019 14 - Other: See Comments 16 - Unknown Comments: Dizziness, weakness sweating CIPROFLOXACIN-FLUOCINOLONE 05/19/2019 14 - Other: See Comments Comments: Dizziness, weakness sweating LACTOSE 09/10/2017 8 - GI Upset Comments: Diarrhea SEASONAL ALLERGIES 05/05/2020 8 - GI Upset 14 - Other: See Comments LACTALBUMIN 05/25/2017 16 - Unknown 8 - GI Upset Comments: Crampy and gassy MILK 05/25/2017 14 - Other: See Comments Comments: Crampy and gassy Diarrhea Other reaction(s): GI Upset Crampy and gassy MILK CONTAINING PRODUCTS (DAIRY) 05/25/2017 14 - Other: See Comments Comments: Crampy and gassy Diarrhea Other reaction(s): GI Upset Crampy and gassy Date Reviewed: 07/27/2022 Reviewed by: Valery Garcia - Fully Assessed Reason for Visit: Future Appointment [256] Prescriptions as of 06/11/2023 - enoxaparin (LOVENOX) 40 mg/0.4 mL INJECT THE CONTENTS OF ONE SYRINGE (0.4 ML) SUBCUTANEOUSLY EVERY 24 HOURS - metFORMIN ER (GLUCOPHAGE XR) 500 mg 24 hr tablet - PRO FE 180 mg iron cap - levothyroxine (SYNTHROID) 25 mcg tablet Take 25 mcg by mouth. - multivitamin tablet Take 1 tablet by mouth once daily. 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] 08/01/2022 Encounter Status:Closed by MARLEEN SMITH on 06/11/23 Normal [facility] CBC W Auto Differential pane l (Bld)on 05-28-2023 Basophils (Bld) [#/Vol] 0.04 10*3/uL Normal <0.11 [facility] Comment on above: Order Comment: Speci men Type: BLOOD SPECIMEN Ordering Facility: [facility] Address: [address] [place] [address] Performed By: #### 5 0190-8, 9, 2275-07, 2283-11 #### [facility] CLIA [id number] [address] [place] [address] [place] Basophils/100 WBC (Bld) 0.5 % Normal [facility] Comment on above: Order Comment: Speci men Type: BLOOD SPECIMEN Ordering Facility: [facility] Address: [address] [place] [address] Performed By: #### 5 0190-8, 9, 2275-4, 2283-11 #### [facility] CLIA [id number] [address] [place] [address] [place] Differential cell count method Nom (Bld) Auto Normal [facility] Comment on above: Order Comment: Speci men Type: BLOOD SPECIMEN Ordering Facility: [facility] Address: [address] [place] [address] Performed By: #### 5 0190-8, 2131-9, 6-4, 4-8 #### [facility] CLIA [id number] [address] [place] [address] [place] Eosinophils (Bld) [#/Vol] 0.11 10*3/uL Normal <0.46 [facility] Comment on above: Order Comment: Speci men Type: BLOOD SPECIMEN Ordering Facility: [facility] Address: [address] [place] [address] Performed By: #### 5 0190-8, 2131-9, 2275-4, 2283-8 #### [facility] CLIA [id number] [address] [place] [address] [place] Eosinophils/100 WBC (Bld) 1.4 % Normal [facility] Comment on above: Order Comment: Speci men Type: BLOOD SPECIMEN Ordering Facility: [facility] Address: [address] [place] [address] Performed By: #### 5 0190-8, 2131-9, 6-4, 2283-8 #### [facility] CLIA [id number] [address] [place] [address] [place] Erythrocyte distribution width (RBC) [Ratio] 13.4 % Normal 11.5-15.0 [facility] Comment on above: Order Comment: Speci men Type: BLOOD SPECIMEN Ordering Facility: [facility] Address: [address] [place] [address] Performed By: #### 5 0190-8, 2131-9, 2275-4, 2283-8 #### [facility] CLIA [id number] [address] [place] [address] [place] Hematocrit (Bld) [Volume fraction] 40.5 % Normal 36.0-46.0 [facility] Comment on above: Order Comment: Speci men Type: BLOOD SPECIMEN Ordering Facility: [facility] Address: [address] [place] [address] Performed By: #### 5 0190-8, 2131-9, 2275-4, 2283-8 #### [facility] CLIA [id number] [address] [place] [address] [place] Hemoglobin (Bld) [Mass/Vol] 13.7 g/dL Normal 11.5-15.5 [facility] Comment on above: Order Comment: Speci men Type: BLOOD SPECIMEN Ordering Facility: [facility] Address: [address] [place] [address] Performed By: #### 5 0190-8, 9, 2275-4, 8 #### [facility] CLIA [id number] [address] [place] [address] [place] Immature granulocytes (Bld) [#/Vol] 10*3/uL Normal <0.10 [facility] Comment on above: Order Comment: Speci men Type: BLOOD SPECIMEN Ordering Facility: [facility] Address: [address] [place] [address] Performed By: #### 5 0190-8, 2131-9, 2275-07, 8 #### [facility] CLIA [id number] [address] [place] [address] [place] Immature granulocytes/100 WBC (Bld) 0.2 % Normal [facility] Comment on above: Order Comment: Speci men Type: BLOOD SPECIMEN Ordering Facility: [facility] Address: [address] [place] [address] Performed By: #### 5 0190-8, 2131-9, 4, 8 #### [facility] CLIA [id number] [address] [place] [address] [place] Lymphocytes (Bld) [#/Vol] 3.54 10*3/uL Normal 1.00-4.00 [facility] Comment on above: Order Comment: Speci men Type: BLOOD SPECIMEN Ordering Facility: [facility] Address: [address] [place], [place] [address] Performed By: #### 5 0190-8, 9, 2275-07, 2283-11 #### [facility] CLIA [id number] [address] [place] [address] [place] Lymphocytes/100 WBC (Bld) 44.2 % Normal [facility] Comment on above: Order Comment: Speci men Type: BLOOD SPECIMEN Ordering Facility: [facility] Address: [address] [place] [address] Performed By: #### 5 0190-8, 9, 2275-07, 2283-11 #### [facility] CLIA [id number] [address] [place] [address] [place] MCH (RBC) [Entitic mass] 29.1 pg Normal 26.0-34.0 [facility] Comment on above: Order Comment: Speci men Type: BLOOD SPECIMEN Ordering Facility: [facility] Address: [address] [place] [address] Performed By: #### 5 0190-8, 9, 2275-07, 2283-11 #### [facility] CLIA [id number] [address] [place] [address] [place] MCHC (RBC) [Mass/Vol] 33.8 g/dL Normal 30.5-36.0 [facility] Comment on above: Order Comment: Speci men Type: BLOOD SPECIMEN Ordering Facility: [facility] Address: [address] [place] [address] Performed By: #### 5 0190-8, 9, 2275-07, 2283-11 #### [facility] CLIA [id number] [address] [place] [address] [place] MCV (RBC) [Entitic vol] 86.0 fL Normal 80.0-100.0 [facility] Comment on above: Order Comment: Speci men Type: BLOOD SPECIMEN Ordering Facility: [facility] Address: [address] [place] [address] Performed By: #### 5 0190-8, 9, 2275-07, 2283-11 #### [facility] CLIA [id number] [address] [place] [address] [place] Monocytes (Bld) [#/Vol] 0.60 10*3/uL Normal <0.87 [facility] Comment on above: Order Comment: Speci men Type: BLOOD SPECIMEN Ordering Facility: [facility] Address: [address] [place] [address] Performed By: #### 5 0190-8, 9, 2275-07, 2283-11 #### [facility] CLIA [id number] [address] [place] [address] [place] Monocytes/100 WBC (Bld) 7.5 % Normal [facility] Comment on above: Order Comment: Speci men Type: BLOOD SPECIMEN Ordering Facility: [facility] Address: [address] [place] [address] Performed By: #### 5 0190-8, 9, 2275-07, 2283-11 #### [facility] CLIA [id number] [address] [place] [address] [place] Neutrophils (Bld) [#/Vol] 3.70 10*3/uL Normal 1.45-7.50 [facility] Comment on above: Order Comment: Speci men Type: BLOOD SPECIMEN Ordering Facility: [facility] Address: [address] [place] [address] Performed By: #### 5 0190-8, 9, 2275-07, 2283-11 #### [facility] CLIA [id number] [address] [place] [address] [place] Neutrophils/100 WBC (Bld) 46.2 % Normal [facility] Comment on above: Order Comment: Speci men Type: BLOOD SPECIMEN Ordering Facility: [facility] Address: [address] [place] [address] Performed By: #### 5 0190-8, 9, 2275-07, 2283-11 #### [facility] CLIA [id number] [address] [place] [address] [place] Nucleated RBC (Bld) [#/Vol] 10*3/uL Normal <0.01 [facility] Comment on above: Order Comment: Speci men Type: BLOOD SPECIMEN Ordering Facility: [facility] Address: [address] [place] [address] Performed By: #### 5 0190-8, 9, 2275-07, 2283-11 #### [facility] CLIA [id number] [address] [place] [address] [place] Nucleated RBC/100 WBC (Bld) [Ratio] 0.0 /100 WBC Normal [facility] Comment on above: Order Comment: Speci men Type: BLOOD SPECIMEN Ordering Facility: [facility] Address: [address] [place] [address] Performed By: #### 5 0190-8, 9, 2275-07, 2283-11 #### [facility] CLIA [id number] [address] [place] [address] [place] Platelet mean volume (Bld) [Entitic vol] 10.1 fL Normal 9.0-12.7 [facility] Comment on above: Order Comment: Speci men Type: BLOOD SPECIMEN Ordering Facility: [facility] Address: [address] [place] [address] Performed By: #### 5 0190-8, 9, 2275-07, 2283-11 #### [facility] CLIA [id number] [address] [place] [address] [place] Platelets (Bld) [#/Vol] 339 10*3/uL Normal 150-400 [facility] Comment on above: Order Comment: Speci men Type: BLOOD SPECIMEN Ordering Facility: [facility] Address: [address] [place] [address] Performed By: #### 5 0190-8, 9, 4, 8 #### [facility] CLIA [id number] [address] [place] [address] [place] RBC (Bld) [#/Vol] 4.71 10*6/uL Normal 3.90-5.20 [facility] Comment on above: Order Comment: Speci men Type: BLOOD SPECIMEN Ordering Facility: [facility] Address: [address] [place] [address] Performed By: #### 5 0190-8, 2131-12, 4, 8 #### [facility] CLIA [id number] [address] [place] [address] [place] WBC (Bld) [#/Vol] 8.01 10*3/uL Normal 3.70-11.00 [facility] Comment on above: Order Comment: Speci men Type: BLOOD SPECIMEN Ordering Facility: [facility] Address: [address] [place] [address] Performed By: #### 5 0190-8, 2131-12, 4, 8 #### [facility] CLIA [id number] [address] [place] [address] [place] Comprehensive metabolic 2000 panelon 05-28-2023 Albumin [Mass/Vol] 4.8 g/dL Normal 3.9-4.9 [facility] Comment on above: Order Comment: Speci men Type: BLOOD SPECIMEN Ordering Facility: [facility] Address: [address] [place] [address] Performed By: #### 5 0190-8, 9, 2275-4, 8 #### [facility] CLIA [id number] [address] [place], [place] [address] [place] ALP [Catalytic activity/Vol] 95 U/L Normal 34-123 [facility] Comment on above: Order Comment: Speci men Type: BLOOD SPECIMEN Ordering Facility: [facility] Address: [address] [place] [address] Performed By: #### 5 0190-8, 2131-9, 2275-4, 8 #### [facility] CLIA [id number] [address] [place] [address] [place] ALT [Catalytic activity/Vol] 24 U/L Normal 7-38 [facility] Comment on above: Order Comment: Speci men Type: BLOOD SPECIMEN Ordering Facility: [facility] Address: [address] [place] [address] Performed By: #### 5 0190-8, 9, 4, 8 #### [facility] CLIA [id number] [address] [place] [address] [place] Anion gap [Moles/Vol] 12 mmol/L Normal 9-18 [facility] Comment on above: Order Comment: Speci men Type: BLOOD SPECIMEN Ordering Facility: [facility] Address: [address] [place] [address] Performed By: #### 5 0190-8, 9, 4, 8 #### [facility] CLIA [id number] [address] [place] [address] [place] AST [Catalytic activity/Vol] 17 U/L Normal 13-35 [facility] Comment on above: Order Comment: Speci men Type: BLOOD SPECIMEN Ordering Facility: [facility] Address: [address] [place] [address] Performed By: #### 5 0190-8, 9, 4, 8 #### [facility] CLIA [id number] [address] [place] [address] [place] Bilirubin [Mass/Vol] 0.2 mg/dL Normal 0.2-1.3 [facility] Comment on above: Order Comment: Speci men Type: BLOOD SPECIMEN Ordering Facility: [facility] Address: [address] [place] [address] Performed By: #### 5 0190-8, 9, 2275-07, 2283-11 #### [facility] CLIA [id number] [address] [place] [address] [place] Calcium [Mass/Vol] 10.7 mg/dL High 8.5-10.2 [facility] Comment on above: Order Comment: Speci men Type: BLOOD SPECIMEN Ordering Facility: [facility] Address: [address] [place] [address] Result Comment: RECH ECKED JT Performed By: #### 5 0190-8, 2131-12, 2275-07, 2283-11 #### [facility] CLIA [id number] [address] [place] [address] [place] Chloride [Moles/Vol] 101 mmol/L Normal 97-105 [facility] Comment on above: Order Comment: Speci men Type: BLOOD SPECIMEN Ordering Facility: [facility] Address: [address] [place] [address] Performed By: #### 5 0190-8, 2131-12, 2275-07, 2283-11 #### [facility] CLIA [id number] [address] [place] [address] [place] CO2 [Moles/Vol] 24 mmol/L Normal 22-30 [facility] Comment on above: Order Comment: Speci men Type: BLOOD SPECIMEN Ordering Facility: [facility] Address: [address] [place] [address] Performed By: #### 5 0190-8, 9, 2275-07, 2283-11 #### [facility] CLIA [id number] [address] [place] [address] [place] Creatinine [Mass/Vol] 0.78 mg/dL Normal 0.58-0.96 [facility] Comment on above: Order Comment: Cesar redd Type: BLOOD SPECIMEN Ordering Facility: [facility] Address: [address] [place] [address] Performed By: #### 5 0190-8, 2-9, 6-4, 8 #### [facility] CLIA [id number] [address] [place] [address] [place] Creatinine and Glomerular filtration rate.predicted panel (S/P/Bld) 100 mL/min/1.73m??? Normal >=60 [facility] Comment on above: Order Comment: Cesar redd Type: BLOOD SPECIMEN Ordering Facility: [facility] Address: [address] [place] [address] Result Comment: Hawa mated Glomerular Filtration Rate (eGFR) is calculated using the 2020 CKD-EPI creatinine equation. This equation utilizes serum creatinine, sex, and age as parameters. The creatinine assay has traceable calibration to isotope dilution-mass spectrometry. Refer to KDIGO guidelines for clinical interpretation. In patients with unstable renal function, e.g. those with acute kidney injury, the eGFR may not accurately reflect actual GFR. Performed By: #### 5 0190-8, 9, 2275-4, 8 #### [facility] CLIA [id number] [address] [place] [address] [place] Glucose [Mass/Vol] 100 mg/dL High 74-99 [facility] Comment on above: Order Comment: Cesar redd Type: BLOOD SPECIMEN Ordering Facility: [facility] Address: [address] [place] [address] Result Comment: The [place] Diabetes Association (ADA) provides guidance for cutoff values for fasting glucose and random glucose. The ADA defines fasting as no caloric intake for at least 8 hours. Fasting plasma glucose results between 100 to 125 mg/dL indicate increased risk for diabetes (prediabetes). Fasting plasma glucose results greater than or equal to 126 mg/dL meet the criteria for diagnosis of diabetes. In the absence of unequivocal hyperglycemia, results should be confirmed by repeat testing. In a patient with classic symptoms of hyperglycemia or hyperglycemic crisis, random plasma glucose results greater than or equal to 200 mg/dL meet the criteria for diagnosis of diabetes. Reference: Standards of Medical Care in Diabetes 2016, [place] [employer] Association. Diabetes Care. 2016.39(Suppl 1). Performed By: #### 5 0190-8, 9, 4, 2283-11 #### [facility] CLIA [id number] [address] [place] [address] [place] Potassium [Moles/Vol] 3.8 mmol/L Normal 3.7-5.1 [facility] Comment on above: Order Comment: Cesar redd Type: BLOOD SPECIMEN Ordering Facility: [facility] Address: [address] [place] [address] Performed By: #### 5 0190-8, 2131-12, 2275-07, 2283-11 #### [facility] CLIA [id number] [address] [place] [address] [place] Protein [Mass/Vol] 8.0 g/dL Normal 6.3-8.0 [facility] Comment on above: Order Comment: Cesar redd Type: BLOOD SPECIMEN Ordering Facility: [facility] Address: [address] [place] [address] Performed By: #### 5 0190-8, 2131-12, 2275-07, 2283-11 #### [facility] CLIA [id number] [address] [place] [address] [place] Sodium [Moles/Vol] 137 mmol/L Normal 136-144 [facility] Comment on above: Order Comment: Jenniferi men Type: BLOOD SPECIMEN Ordering Facility: [facility] Address: [address] [place] [address] Performed By: #### 5 0190-8, 9, 2275-07, 2283-11 #### [facility] CLIA [id number] [address] [place] [address] [place] Urea nitrogen [Mass/Vol] 10 mg/dL Normal 7-21 [facility] Comment on above: Order Comment: Speci men Type: BLOOD SPECIMEN Ordering Facility: [facility] Address: [address] [place] [address] Performed By: #### 5 0190-8, 9, 4, 8 #### [facility] CLIA [id number] [address] [place] [address] [place] Ferritin SerPl-mCncon 2023 Ferritin [Mass/Vol] 52.2 ng/mL Normal 14.7-205.1 [facility] Comment on above: Order Comment: Speci men Type: BLOOD SPECIMEN Ordering Facility: [facility] Address: [address] [place] [address] Performed By: #### 5 0190-8, 9, 2275-07, 2283-11 #### [facility] CLIA [id number] [address] [place] [address] [place] Folate SerPl-mCncon 05-28-19 24 Folate [Mass/Vol] ng/mL Normal >4.7 [facility] Comment on above: Order Comment: Speci tramaine Type: BLOOD SPECIMEN Ordering Facility: [facility] Address: [address] [place] [address] Result Comment: A re sult of > 20 ng/mL is not necessarily indicative of a pathologic or treatable condition: it reflects a limitation of the test methodology. Assay reference range: 4.8 to 24.2 ng/mL. Suitable for detection of folate deficiency. Reference: Folate III (Folate III) [package insert V 1.0 Nauruan]. [facility], [place], [place]: February 2015. Performed By: #### 5 0190-8, 9, 2275-07, 2283-11 #### [facility] CLIA [id number] [address] [place] [address] [place] Iron and Iron binding capaci ty panelon 05-28-2023 Iron [Mass/Vol] 68 ug/dL Normal 41-186 [facility] Comment on above: Order Comment: Speci men Type: BLOOD SPECIMEN Ordering Facility: [facility] Address: [address] [place] [address] Performed By: #### 5 0190-8, 9, 4, 8 #### [facility] CLIA [id number] [address] [place] [address] [place] Iron binding capacity [Mass/Vol] 386 ug/dL Normal 232-386 [facility] Comment on above: Order Comment: Speci men Type: BLOOD SPECIMEN Ordering Facility: [facility] Address: [address] [place] [address] Performed By: #### 5 0190-8, 9, 2275-07, 2283-11 #### [facility] CLIA [id number] [address] [place] [address] [place] Iron/TIBC [Molar ratio] 17.6 % Normal 15.0-57.0 [facility] Comment on above: Order Comment: Speci men Type: BLOOD SPECIMEN Ordering Facility: [facility] Address: [address] [place] [address] Performed By: #### 5 0190-8, 9, 2275-07, 2283-11 #### [facility] CLIA [id number] [address] [place] [address] [place] Vit B12 SerPl-mCncon 024 Cobalamin (Vitamin B12) [Mass/Vol] 370 pg/mL Normal 232-1245 [facility] Comment on above: Order Comment: Speci men Type: BLOOD SPECIMEN Ordering Facility: [facility] Address: [address] [place] [address] Performed By: #### 5 0190-8, 9, 2275-07, 8 #### [facility] CLIA [id number] [address] [place] [place] [address] [place] Ambulatory Visit Summaryon 0 05-25-2023 Ambulatory Visit Summary MADHU RENDON :1985 Visit Date:05/25/2023 Ambulatory Visit Instructions Your Diagnosis BMI 37.0-37.9, adult Other obesity Morbid obesity Your Care Team Attending Physician - Evans CASAS DO, FAAFP Primary Care Physician - Evans CASAS DO, FAAFP This Is Your Medications List enoxaparin (Lovenox 40 mg/0.4 mL Injection) metformin (MetFORMIN (Eqv-Glucophage XR) 500 mg oral tablet, extended release) Procedures Performed Biopsy of breast (06/14/2013), Extraction of wisdom tooth (2006), endoscopy for ovarian cysts to drain. Discharge Vitals Temperature (Oral) 36.5 ?C Heart Rate (Peripheral) 76 Respiratory Rate 18 Blood Pressure 118/70 Height 168 cm Height 66 in Weight 107.1 kg Weight 235.62 lb BMI 37.95 What to do next Scheduled Follow-Up Appointments Sunday 1:20 PM EDT With: Evans CASAS DO, FAAFP Where: [facility] Family Medicine Office/Clini c Noteon 05-25-2023 Family Medicine Office/Clinic Note Chief Complaint States she is still having the right ear drainage. Also states she gets random itchy feeling all over. History of Present Illness Drainage down R throat from R ear in evening. No fever nor chills. Dry Skin on arms face at times. No hives No F/C Did not feel R TM move with Valsalva today, Patient reports drainage from the inside of her going down the right side of her throat usually around suppertime for the past few days. She wonders if it is allergies. Hearing is normal. Patient denies fever nor chills. Patient wonders if she has allergies and some congestion in the right maxillary sinus. Patient also complains of dry skin, she does take a bath every day for dry skin comes and goes usually of arms and she admits to her on her cheeks. Review of Systems PHQ Score Initial Depression Screen Score: 0 SCORE ROS - Provider Constitutional: no fever, no chills, no sweats, no weakness. Skin: no Jaundice, no rash, no lesions, no petechiae. Dry skin ENMT: no ear pain, no sore throat, no congestion, no hoarseness. Respiratory: no shortness of breath, no cough, no orthopnea, no wheezing. Cardiovascular: no chest pain, no palpitations, no edema. Gastrointestinal: no nausea, no vomiting, no diarrhea, no GI bleeding.no constipationnoheartburn Genitourinary: no dysuria, no hematuria, no discharge, no pain.nofreq/urgency Musculoskeletal: no back pain, no trauma.nojoint pain Neurologic: no headache, no dizziness, no numbness, no weakness. Psychiatric: no sleeping problems, no irritability, no mood swings/depression. Heme/Lymph: no bleeding tendency, no bruising tendency, no petechiae, no swollen lymph nodes no Allergy/Imunology no seasonal allergies, no food allergies, no recurrent infections, no impaired immunity. Additional ROS info: Except as noted in the above Review of Systems and in the History of Present Illness all other systems have been reviewed and are negative or noncontributory. Physical Exam Vitals & Measurements T: 36.5 ?C(Oral) HR: 76(Peripheral) RR: 18 BP: 118/70 SpO2: 98% HT: 66 in HT: 168 cm WT: 107.1 kg WT: 235.62 lb BMI: 37.95 General: Well developed, well nourished, in no acute distress Mouth: Mucous membranes moist. Normal oropharynx, and posterior pharynx without lesions or exudates. Tongue normal Neck: Neck supple. No masses or palpable cervical nodes. Trachea midline. Thyroid without nodules, masses, tenderness, or enlargement Lungs: Normal respiratory effort and clear to auscultation Cardio: Regular rate and rhythm, normal S1 and S2, no murmur, no rub Abdomen: Soft, non-distended, non-tender. no G/R/S/Masses Musculoskeletal: No deformity or scoliosis noted. Normal range of motion. Joints normal. No erythema, edema, effusion, or ecchymosis Extremity: No clubbing, cyanosis, edema, or deformity, with normal ROM in both upper and lower bilateral extremities Neurologic: Grossly normal Skin: No rashes, ulcerations, or suspicious lesions: Dry skin and some cracking of cheeks. Mental Status: Alert and oriented x3. Normal mood and affect TM's look normal, R immobile w valsalva Assessment/Plan 1. Dysfunction of right eustachian tube (H69.91: Unspecified Eustachian tube disorder, right ear) Flonase 2 elations right nostril daily to twice daily, may also use cetirizine or Zyrtec since she is nursing, she is to avoid Benadryl. 2. Dyshidrotic eczema (L30.1: Dyshidrosis [pompholyx]) Yxps-kdu-rlmaeqc hydrocortisone cream 1% or 2.5% as directed. I instructed her to stop soap when showering except for trouble areas and to place hydrocortisone cream on her skin while still 3. BMI 37.0-37.9, adult (Z68.37: Body mass index [BMI] 37.0-37.9, adult) The standard range for ages 18 and older is >=18.5 and < 25 kg/m2. Your BMI today was above this range, this falls in the overweight to obese category and there are medical benefits to weight loss. We can offer counselling, referral, and/or medical support in addressing this problem. Your BMI and weight management will be followed at subsequent visits. 4. Other obesity (E66.8: Other obesity) Diet and exercise BMI goal of 25 5. Morbid obesity (E66.01: Morbid (severe) obesity due to excess calories) Diet and exercise, BMI goal of 25 6. Gestational diabetes (O24.419: Gestational diabetes mellitus in , unspecified control) Holding the metformin and A1c in 3 months to see if diabetes actually persist. 7. Environmental allergies (Z91.09: Other allergy status, other than to drugs and biological substances) Please see #1 Total time spent preparing the chart, conducting of the encounter with the patient and family and time spent documenting, reviewing, and ordering tests was 25 minutes. Follow-up With When Contact Information PRAVEEN RESENDEZ FAAFP, Evans Tony, CHRIS, PED In 2 months [address], [place] [address]- Additional Instructions: Patient Education Eustachian Tube Dysfunction Dyshidrotic Eczema Allergies, Tadeo (more content not included)... [facility] Comment on above: Result Comment: Elec tronically Signed By: PRAVEEN RESENDEZ FAAFP, Evans Tony\.cedrick\Date and Time Signed: 05/25/23 12:02 EST Patient Educationon 05-25-19 Patient Education ENT Eustachian Tube Dysfunction Eustachian tube dysfunction refers to a condition in which a blockage develops in the narrow passage that connects the middle ear to the back of the nose (eustachian tube). The eustachian tube regulates air pressure in the middle ear by letting air move between the ear and nose. It also helps to drain fluid from the middle ear space. Eustachian tube dysfunction can affect one or both ears. When the eustachian tube does not function properly, air pressure, fluid, or both can build up in the middle ear. What are the causes? This condition occurs when the eustachian tube becomes blocked or cannot open normally. Common causes of this condition include: ? Ear infections. ? Colds and other infections that affect the nose, mouth, and throat (upper respiratory tract). ? Allergies. ? Irritation from cigarette smoke. ? Irritation from stomach acid coming up into the esophagus (gastroesophageal reflux). The esophagus is the part of the body that moves food from the mouth to the stomach. ? Sudden changes in air pressure, such as from descending in an airplane or scuba diving. ? Abnormal growths in the nose or throat, such as: ? Growths that line the nose (nasal polyps). ? Abnormal growth of cells (tumors). ? Enlarged tissue at the back of the throat (adenoids). What increases the risk? You are more likely to develop this condition if: ? You smoke. ? You are overweight. ? You are a child who has: ? Certain defects of the mouth, such as cleft palate. ? Large tonsils or adenoids. What are the signs or symptoms? Common symptoms of this condition include: ? A feeling of fullness in the ear. ? Ear pain. ? Clicking or popping noises in the ear. ? Ringing in the ear (tinnitus). ? Hearing loss. ? Loss of balance. ? Dizziness. Symptoms may get worse when the air pressure around you changes, such as when you travel to an area of high elevation, fly on an airplane, or go scuba diving. How is this diagnosed? This condition may be diagnosed based on: ? Your symptoms. ? A physical exam of your ears, nose, and throat. ? Tests, such as those that measure: ? The movement of your eardrum. ? Your hearing (audiometry). How is this treated? Treatment depends on the cause and severity of your condition. ? In mild cases, you may relieve your symptoms by moving air into your ears. This is called popping the ears. ? In more severe cases, or if you have symptoms of fluid in your ears, treatment may include: ? Medicines to relieve congestion (decongestants). ? Medicines that treat allergies (antihistamines). ? Nasal sprays or ear drops that contain medicines that reduce swelling (steroids). ? A procedure to drain the fluid in your eardrum. In this procedure, a small tube may be placed in the eardrum to: ? Drain the fluid. ? Restore the air in the middle ear space. ? A procedure to insert a balloon device through the nose to inflate the opening of the eustachian tube (balloon dilation). Follow these instructions at home: Lifestyle ? Do not do any of the following until your health care provider approves: ? Travel to high altitudes. ? Fly in airplanes. ? Work in a pressurized cabin or room. ? Scuba dive. ? Do not use any products that contain nicotine or tobacco. These products include cigarettes, chewing tobacco, and vaping devices, such as e-cigarettes. If you need help quitting, ask your health care provider. ? Keep your ears dry. Wear fitted earplugs during showering and bathing. Dry your ears completely after. General instructions ? Take vhbr-eef-bmjcija and prescription medicines only as told by your health care provider. ? Use techniques to help pop your ears as recommended by your health care provider. These may include: ? Chewing gum. ? Yawning. ? Frequent, forceful swallowing. ? Closing your mouth, holding your nose closed, and gently blowing as if you are trying to blow air out of your nose. ? Keep all follow-up visits. This is important. Contact a health care provider if: ? Your symptoms do not go away after treatment. ? Your symptoms come back after treatment. ? You are unable to pop your ears. ? You have: ? A fever. ? Pain in your ear. ? Pain in your head or neck. ? Fluid draining from your ear. ? Your hearing suddenly changes. ? You become very dizzy. ? You lose your balance. Get help right away if: ? You have a sudden, severe increase in any of your symptoms. Summary ? Eustachian tube dysfunction refers to a condition in which a blockage develops in the eustachian tube. ? It can be caused by ear infections, allergies, inhaled irritants, or abnormal growths in the nose or throat. ? Symptoms may include ear pain or fullness, hearing loss, or ringing in the ears. ? Mild cases are treated with techniques to unblock the ears, such as yawning or chewing gum. ? More severe cases are treated w (more content not included)... [facility] C Urineon 05-03-2023 Bacteria identified Cx Nom (U) Microbiology PROCEDURE: Urine Culture [R1] SOURCE: U Random BODY SITE: COLLECTED DATE/TIME: 05/01/2023 18:00 EST RECEIVED DATE/TIME: 05/01/2023 18:08 EST START DATE/TIME: 05/01/2023 18:08 EST FREE TEXT SOURCE: Evans CASAS DO, FAAFP, DO, FAAFP, Evans Tony FINAL REPORTS Final Report [] Verified Date/Time: 05/03/2023 07:00 EST <10,000 cfu/ml Mixed skin contaminants Performing Locations R1: This test was performed at: [facility], [address] [place] [address], [facility]- , , [facility] Comment on above: Performed By: #### 2 [id number] ####[facility] [address] [place] [address] Consent for Treatmenton Consent for Treatment [id number] [facility] Urinalysison 05-01-2023 Bacteria LM Ql (Urine sed) TRACE Normal [facility] Comment on above: Performed By: #### 1 [id number] ####[facility] [address] [place] [address] Bilirubin Ql (U) Negative Normal Negative [facility] Comment on above: Performed By: #### 1 [id number] ####[facility] [address] [place] [address] Clarity (U) CLOUDY Abnormal Clear [facility] Comment on above: Performed By: #### 1 [id number] ####[facility] [address] [place] [address] Color (U) YELLOW Normal Yellow [facility] Comment on above: Performed By: #### 1 [id number] ####[facility] [address] [place] [address] Epithelial cells.squamous LM.HPF (Urine sed) [#/Area] /[HPF] Normal 0-2 [facility] Comment on above: Performed By: #### 1 [id number] ####[facility] [address] [place] [address] Glucose Test strip (U) [Mass/Vol] Negative Normal Negative [facility] Comment on above: Performed By: #### 1 [id number] ####[facility] [address] [place] [address] Hemoglobin Ql (U) Negative Normal Negative [facility] Comment on above: Performed By: #### 1 [id number] ####[facility] [address] [place] [address] Ketones (U) [Mass/Vol] Negative Normal Negative [facility] Comment on above: Performed By: #### 1 [id number] ####[facility] [address] [place] [address] [place].plasma/Lithi um.RBC (Bld) [Mass ratio] 0-3 Normal 0-3 [facility] Comment on above: Performed By: #### 1 [id number] ####[facility] [address] [place] [address] Nitrite Ql (U) Negative Normal Negative [facility] Comment on above: Performed By: #### 1 [id number] ####[facility] [place] [address] pH (U) 6.0 [pH] Invalid Interpretation Code 5.0-9.0 [facility] Comment on above: Performed By: #### 1 [id number] ####[place] [address] Protein (U) [Mass/Vol] Negative Normal Negative [facility] Comment on above: Performed By: #### 1 [id number] ####[place] [id number] Specific gravity (U) [Rel density] <=1.005 Invalid Interpretation Code 1.005-1.030 [facility] Comment on above: Performed By: #### 1 [id number] ####[place] [address] Type of Urine collection method Clean Catch [facility] Comment on above: Performed By: #### 1 [id number] ####[place] [id number] Urobilinogen Qn (U) 0.2 {Nicole'U}/dL Normal 0.0-1.0 [facility] Comment on above: Performed By: #### 1 [id number] ####[place] [id number] WBC Auto Ql (U) TRACE Abnormal Negative [facility] Comment on above: Performed By: #### 1 [id number] ####[address] [place] [id number] WBC LM.HPF (Urine sed) [#/Area] 0-5 Normal 0-5 [facility] Comment on above: Performed By: #### 1 [id number] ####[place] [id number] Ambulatory Visit Summaryon Ambulatory Visit Summary JUSTICE, MADHU Jaylan :1985 Visit Date:04/27/2023 Ambulatory Visit Instructions Your Diagnosis Systemic viral illness BMI 38.0-38.9,adult Morbid obesity Gestational diabetes H/O: hypothyroidism Your Care Team Attending Physician - Evans CASAS DO, FAAFP Primary Care Physician - Evans CASAS DO, FAAFP This Is Your Medications List Contact prescribing physician if questions or concerns enoxaparin (Lovenox 40 mg/0.4 mL Injection) metformin (MetFORMIN (Eqv-Glucophage XR) 500 mg oral tablet, extended release) Procedures Performed Biopsy of breast (06/14/2013), Extraction of wisdom tooth (2006), endoscopy for ovarian cysts to drain. Discharge Vitals Temperature (Oral) 36.5 ?C Heart Rate (Peripheral) 79 Respiratory Rate 18 Blood Pressure 112/70 Height 168 cm Height 66 in Weight 107.6 kg Weight 236.72 lb BMI 38.12 What to do next Scheduled Follow-Up Appointments Sunday 11:20 AM EST With: Evans CASAS DO, FAAFP Where: [facility] CHEMISTRYOrdered By: SYSTEM SYSTEM on 04-27-2023 TSH Qn 4.04 m[IU]/L Normal 0.34 - 5.60 mcIU/mL Remisol Chem Family Medicine Office/Clini c Noteon 04-27-2023 Family Medicine Office/Clinic Note Chief Complaint Since last Sunday has been having joint pain with burning sensation and has been having diarrhea with stomach pain. States her kids are sick. Also has been having burning in her nipples, she is . Wants her thyroid checked. History of Present Illness Children are sick at home and has been having diarrhea since Sunday before [place], nonbloody with some associated stomach pain. She has been having some burning in her nipples when she is breast-feeding and wants her thyroid checked. Muscle aches and pains like flu Still breast feeding. No loss of taste nor smell. [id number] while taking Glucophage XR 500 mg p.o. nightly during her she was taking at 1000 mg p.o. nightly. Patient reports that her OB told her that once she had her baby she could stop the Glucophage, the patient never did rather she reduced it from 1000 milligrams per day to 500 mg/day as she thought this would help her lose weight. I am feeling better now I never had fever may be even a low-grade and the chills are improving. I am continuing to breast-feed. Patient is here for follow-up on Diabetes. How often are you checking your blood sugars? _q day What are your average readings? _101-136 Do you have low blood sugar readings/symptoms? _No Do you have high blood sugar readings/symptoms? No_ Are you compliant with your diet? For the most part _ Do you exercise? Yes Are you compliant with your medications or having difficulty affording your medications? yes and no issues Do you have any of the following symptoms? Vision problems? No Sexual dysfunction? No GI-Nausea/committing/bloat ing? No Lightheadedness? No Paresthesias, Ulcerations or sores? No 500mg Glucophage q hs I am taking now Patient asked me if I would check breast that she thought she felt a bump just above the left areola a couple days ago, no longer certain if there anymore. Review of Systems PHQ Score Initial Depression Screen Score: 0 SCORE ROS - Provider Constitutional: no fever, no chills, no sweats, no weakness. Skin: no Jaundice, no rash, no lesions, no petechiae. ENMT: no ear pain, no sore throat, no congestion, no hoarseness. Respiratory: no shortness of breath, no cough, no orthopnea, no wheezing. Cardiovascular: no chest pain, no palpitations, no edema. Gastrointestinal: no nausea, no vomiting, no diarrhea, no GI bleeding.no constipationnoheartburn Genitourinary: no dysuria, no hematuria, no discharge, no pain.nofreq/urgency Musculoskeletal: no back pain, no trauma.nojoint pain Neurologic: no headache, no dizziness, no numbness, no weakness. Psychiatric: no sleeping problems, no irritability, no mood swings/depression. Heme/Lymph: no bleeding tendency, no bruising tendency, no petechiae, no swollen lymph nodes no Allergy/Imunology no seasonal allergies, no food allergies, no recurrent infections, no impaired immunity. Additional ROS info: Except as noted in the above Review of Systems and in the History of Present Illness all other systems have been reviewed and are negative or noncontributory. Physical Exam Vitals & Measurements T: 36.5 ?C(Oral) HR: 79(Peripheral) RR: 18 BP: 112/70 SpO2: 98% HT: 66 in HT: 168 cm WT: 107.6 kg WT: 236.72 lb BMI: 38.12 General: Well developed, well nourished, in no acute distress Mouth: Mucous membranes moist. Normal oropharynx, and posterior pharynx without lesions or exudates. Tongue normal Neck: Neck supple. No masses or palpable cervical nodes. Trachea midline. Thyroid without nodules, masses, tenderness, or enlargement Lungs: Normal respiratory effort and clear to auscultation Cardio: Regular rate and rhythm, normal S1 and S2, no murmur, no rub Abdomen: Soft, non-distended, non-tender. no G/R/S/Masses Musculoskeletal: No deformity or scoliosis noted. Normal range of motion. Joints normal. No erythema, edema, effusion, or ecchymosis Extremity: No clubbing, cyanosis, edema, or deformity, with normal ROM in both upper and lower bilateral extremities Neurologic: Grossly normal Skin: No rashes, ulcerations, or suspicious lesions Mental Status: Alert and oriented x3. Normal mood and affect Breast exam and with nurse present in nipples and breast and axilla normal. No masses whatsoever. Assessment/Plan 1. Systemic viral illness (B34.9: Viral infection, unspecified) Improving: Push fluids and Tylenol and or ibuprofen [id number] as directed. Patient does not appear ill nor toxic appearing and once again is improving and she voices understanding that she will push fluids and follow clinically. 2. BMI 38.0-38.9,adult (Z68.38: Body mass index [BMI] 38.0-38.9, adult) The standard range for ages 18 and older is >=18.5 and < 25 kg/m2. Your BMI today was above this range, this falls in the overweight to obese category and there are medical benefits to weight loss. We can offer counselling, referral, and/or medical support in addressing this problem. Your BMI and weight manag (more content not included)... [facility] Comment on above: Result Comment: Elec tronically Signed By: Evans CASAS DO, FAAFP\.br\Date and Time Signed: 04/27/23 12:53 EST Patient Educationon 04-27-20 Patient Education Endocrinology Diabetes Mellitus and Exercise Exercising regularly is important for overall health, especially for people who have diabetes mellitus. Exercising is not only about losing weight. It has many other health benefits, such as increasing muscle strength and bone density and reducing body fat and stress. This leads to improved fitness, flexibility, and endurance, all of which result in better overall health. What are the benefits of exercise if I have diabetes? Exercise has many benefits for people with diabetes. They include: ? Helping to lower and control blood sugar (glucose). ? Helping the body to respond better to the hormone insulin by improving insulin sensitivity. ? Reducing how much insulin the body needs. ? Lowering the risk for heart disease by: ? Lowering bad cholesterol and triglyceride levels. ? Increasing good cholesterol levels. ? Lowering blood pressure. ? Lowering blood glucose levels. What is my activity plan? Your health care provider or certified master safe technician can help you make a plan for the type and frequency of exercise that works for you. This is called your activity plan. Be sure to: ? Get at least 150 minutes of medium-intensity or high-intensity exercise each week. Exercises may include brisk walking, biking, or water aerobics. ? Do stretching and strengthening exercises, such as yoga or weight lifting, at least 2 times a week. ? Spread out your activity over at least 3 days of the week. ? Get some form of physical activity each day. ? Do not go more than 2 days in a row without some kind of physical activity. ? Avoid being inactive for more than 90 minutes at a time. Take frequent breaks to walk or stretch. ? Choose exercises or activities that you enjoy. Set realistic goals. ? Start slowly and gradually increase your exercise intensity over time. How do I manage my diabetes during exercise? Monitor your blood glucose ? Check your blood glucose before and after exercising. If your blood glucose is: ? 240 mg/dL (13.3 mmol/L) or higher before you exercise, check your urine for ketones. These are chemicals created by the liver. If you have ketones in your urine, do not exercise until your blood glucose returns to normal. ? 100 mg/dL (5.6 mmol/L) or lower, eat a snack containing 15?20 grams of carbohydrate. Check your blood glucose 15 minutes after the snack to make sure that your glucose level is above 100 mg/dL (5.6 mmol/L) before you start your exercise. ? Know the symptoms of low blood glucose (hypoglycemia) and how to treat it. Your risk for hypoglycemia increases during and after exercise. Follow these tips and your health care provider's instructions ? Keep a carbohydrate snack that is fast-acting for use before, during, and after exercise to help prevent or treat hypoglycemia. ? Avoid injecting insulin into areas of the body that are going to be exercised. For example, avoid injecting insulin into: ? Your arms, when you are about to play tennis. ? Your legs, when you are about to go jogging. ? Keep records of your exercise habits. Doing this can help you and your health care provider adjust your diabetes management plan as needed. Write down: ? Food that you eat before and after you exercise. ? Blood glucose levels before and after you exercise. ? The type and amount of exercise you have done. ? Work with your health care provider when you start a new exercise or activity. He or she may need to: ? Make sure that the activity is safe for you. ? Adjust your insulin, other medicines, and food that you eat. ? Drink plenty of water while you exercise. This prevents loss of water (dehydration) and problems caused by a lot of heat in the body (heat stroke). Where to find more information ? [place] [employer]: www.diabetes.org Summary ? Exercising regularly is important for overall health, especially for people who have diabetes mellitus. ? Exercising has many health benefits. It increases muscle strength and bone density and reduces body fat and stress. It also lowers and controls blood glucose. ? Your health care provider or certified master safe technician can help you make an activity plan for the type and frequency of exercise that works for you. ? Work with your health care provider to make sure any new activity is safe for you. Also work with your health care provider to adjust your insulin, other medicines, and the food you eat. This information is not intended to replace advice given to you by your health care provider. Make sure you discuss any questions you have with your health care provider. Document Revised: 01/12/2020 Document Reviewed: 01/12/2020 Elsevier Patient Education ? 2022 [employer] Preventing Hypoglycemia Hypoglycemia occurs when the level of sugar (glucose) in the blood is too low. Hypoglycemia can happen in people who do or do not have diabetes (diabetes (more content not included)... [facility] TSHon 04-27-2023 TSH Qn 4.04 m[IU]/L Normal 0.34-5.60 [facility] Comment on above: Performed By: #### 2 [id number] ####[facility] [address] [facility] [place] [address] 25(OH)D3 [facility] 2022 25-hydroxyvitamin D3 [Mass/Vol] 23.6 ng/mL Low 31.0-80.0 [facility] Comment on above: Order Comment: Speci men Type: BLOOD SPECIMEN Ordering Facility: [facility] Address: [address] [place] [address] Result Comment: Clas sification of 25 [place] Vitamin D status: Deficiency/Insufficiency: < or = 30 ng/ml. Sufficiency/Optimal Levels: 31-80 ng/mL Toxicity: > 100 ng/mL. Test performed by chemiluminescent immunoassay. Performed By: #### 5 0190-8, 9, 2275-07, 2283-11 #### [facility] CLIA [id number] [address] [place] [address] [place] CBC W Auto Differential pane l (Bld)on 03-13-2023 Basophils (Bld) [#/Vol] 0.03 10*3/uL Normal <0.11 [facility] Comment on above: Order Comment: Speci men Type: BLOOD SPECIMEN Ordering Facility: [facility] Address: [address] [place] [address] Performed By: #### 5 0190-8, 9, 2275-07, 2283-11 #### [facility] CLIA [id number] [address] [place] [address] [place] Basophils/100 WBC (Bld) 0.4 % Normal [facility] Comment on above: Order Comment: Speci men Type: BLOOD SPECIMEN Ordering Facility: [facility] Address: [address] [place] [address] Performed By: #### 5 0190-8, 9, 2275-07, 2283-11 #### [facility] CLIA [id number] [address] [place] [address] [place] Differential cell count method Nom (Bld) Auto Normal [facility] Comment on above: Order Comment: Speci men Type: BLOOD SPECIMEN Ordering Facility: [facility] Address: [address] [place] [address] Performed By: #### 5 0190-8, 9, 2275-07, 2283-11 #### [facility] CLIA [id number] [address] [place] [address] [place] Eosinophils (Bld) [#/Vol] 0.05 10*3/uL Normal <0.46 [facility] Comment on above: Order Comment: Speci men Type: BLOOD SPECIMEN Ordering Facility: [facility] Address: [address] [place] [address] Performed By: #### 5 0190-8, 9, 2275-07, 2283-11 #### [facility] CLIA [id number] [address] [place] [address] [place] Eosinophils/100 WBC (Bld) 0.7 % Normal [facility] Comment on above: Order Comment: Speci men Type: BLOOD SPECIMEN Ordering Facility: [facility] Address: [address] [place] [address] Performed By: #### 5 0190-8, 9, 2275-07, 2283-11 #### [facility] CLIA [id number] [address] [place] [address] [place] Erythrocyte distribution width (RBC) [Ratio] 13.3 % Normal 11.5-15.0 [facility] Comment on above: Order Comment: Speci men Type: BLOOD SPECIMEN Ordering Facility: [facility] Address: [address] [place] [address] Performed By: #### 5 0190-8, 9, 2275-07, 2283-11 #### [facility] CLIA [id number] [address] [place] [address] [place] Hematocrit (Bld) [Volume fraction] 39.3 % Normal 36.0-46.0 [facility] Comment on above: Order Comment: Speci men Type: BLOOD SPECIMEN Ordering Facility: [facility] Address: [address] [place] [address] Performed By: #### 5 0190-8, 9, 2275-07, 2283-11 #### [facility] CLIA [id number] [address] [place] [address] [place] Hemoglobin (Bld) [Mass/Vol] 13.3 g/dL Normal 11.5-15.5 [facility] Comment on above: Order Comment: Speci men Type: BLOOD SPECIMEN Ordering Facility: [facility] Address: [address] [place] [address] Performed By: #### 5 0190-8, 9, 2275-07, 2283-11 #### [facility] CLIA [id number] [address] [place] [address] [place] Immature granulocytes (Bld) [#/Vol] 10*3/uL Normal <0.10 [facility] Comment on above: Order Comment: Speci men Type: BLOOD SPECIMEN Ordering Facility: [facility] Address: [address] [place] [address] Performed By: #### 5 0190-8, 9, 2275-07, 2283-11 #### [facility] CLIA [id number] [address] [place] [address] [place] Immature granulocytes/100 WBC (Bld) 0.3 % Normal [facility] Comment on above: Order Comment: Speci men Type: BLOOD SPECIMEN Ordering Facility: [facility] Address: [address] [place] [address] Performed By: #### 5 0190-8, 9, 2275-07, 2283-11 #### [facility] CLIA [id number] [address] [place] [address] [place] Lymphocytes (Bld) [#/Vol] 3.05 10*3/uL Normal 1.00-4.00 [facility] Comment on above: Order Comment: Speci men Type: BLOOD SPECIMEN Ordering Facility: [facility] Address: [address] [place] [address] Performed By: #### 5 0190-8, 2131-12, 2275-07, 2283-11 #### [facility] CLIA [id number] [address] [place] [address] [place] Lymphocytes/100 WBC (Bld) 40.4 % Normal [facility] Comment on above: Order Comment: Speci men Type: BLOOD SPECIMEN Ordering Facility: [facility] Address: [address] [place] [address] Performed By: #### 5 0190-8, 2131-12, 2275-07, 2283-11 #### [facility] CLIA [id number] [address] [place] [address] [place] MCH (RBC) [Entitic mass] 29.2 pg Normal 26.0-34.0 [facility] Comment on above: Order Comment: Speci men Type: BLOOD SPECIMEN Ordering Facility: [facility] Address: [address] [place] [address] Performed By: #### 5 0190-8, 2131-12, 2275-07, 2283-11 #### [facility] CLIA [id number] [address] [place] [id number] [place] MCHC (RBC) [Mass/Vol] 33.8 g/dL Normal 30.5-36.0 [facility] Comment on above: Order Comment: Speci men Type: BLOOD SPECIMEN Ordering Facility: [facility] Address: [address] [place] [address] Performed By: #### 5 0190-8, 2131-12, 2275-07, 2283-11 #### [facility] CLIA [id number] [address] [place], [place] [address] [place] MCV (RBC) [Entitic vol] 86.2 fL Normal 80.0-100.0 [facility] Comment on above: Order Comment: Speci men Type: BLOOD SPECIMEN Ordering Facility: [facility] Address: [address] [place] [address] Performed By: #### 5 0190-8, 2131-12, 2275-07, 2283-11 #### [facility] CLIA [id number] [address] [place] [address] [place] Monocytes (Bld) [#/Vol] 0.63 10*3/uL Normal <0.87 [facility] Comment on above: Order Comment: Speci men Type: BLOOD SPECIMEN Ordering Facility: [facility] Address: [address] [place] [address] Performed By: #### 5 0190-8, 2131-12, 2275-07, 2283-11 #### [facility] CLIA [id number] [address] [place] [address] [place] Monocytes/100 WBC (Bld) 8.3 % Normal [facility] Comment on above: Order Comment: Speci men Type: BLOOD SPECIMEN Ordering Facility: [facility] Address: [address] [place] [address] Performed By: #### 5 0190-8, 2131-12, 2275-07, 2283-11 #### [facility] CLIA [id number] [address] [place] [address] [place] Neutrophils (Bld) [#/Vol] 3.77 10*3/uL Normal 1.45-7.50 [facility] Comment on above: Order Comment: Speci men Type: BLOOD SPECIMEN Ordering Facility: [facility] Address: [address] [place] [address] Performed By: #### 5 0190-8, 2131-12, 2275-07, 2283-11 #### [facility] CLIA [id number] [address] [place] [address] [place] Neutrophils/100 WBC (Bld) 49.9 % Normal [facility] Comment on above: Order Comment: Speci men Type: BLOOD SPECIMEN Ordering Facility: [facility] Address: [address] [place] [address] Performed By: #### 5 0190-8, 2131-12, 2275-07, 2283-11 #### [facility] CLIA [id number] [address] [place] [address] [place] Nucleated RBC (Bld) [#/Vol] 10*3/uL Normal <0.01 [facility] Comment on above: Order Comment: Speci men Type: BLOOD SPECIMEN Ordering Facility: [facility] Address: [address] [place] [address] Performed By: #### 5 0190-8, 2131-12, 2275-07, 2283-11 #### [facility] CLIA [id number] [address] [place] [address] [place] Nucleated RBC/100 WBC (Bld) [Ratio] 0.0 /100 WBC Normal [facility] Comment on above: Order Comment: Speci men Type: BLOOD SPECIMEN Ordering Facility: [facility] Address: [address] [place] [address] Performed By: #### 5 0190-8, 2131-12, 2275-07, 2283-11 #### [facility] CLIA [id number] [address] [place] [address] [place] Platelet mean volume (Bld) [Entitic vol] 9.7 fL Normal 9.0-12.7 [facility] Comment on above: Order Comment: Speci men Type: BLOOD SPECIMEN Ordering Facility: [facility] Address: [address] [place] [address] Performed By: #### 5 0190-8, 2131-9, 2275-4, 8 #### [facility] CLIA [id number] [address] [place] [address] [place] Platelets (Bld) [#/Vol] 335 10*3/uL Normal 150-400 [facility] Comment on above: Order Comment: Speci men Type: BLOOD SPECIMEN Ordering Facility: [facility] Address: [address] [place] [address] Performed By: #### 5 0190-8, 9, 2275-4, 8 #### [facility] CLIA [id number] [address] [place] [address] [place] RBC (Bld) [#/Vol] 4.56 10*6/uL Normal 3.90-5.20 [facility] Comment on above: Order Comment: Speci men Type: BLOOD SPECIMEN Ordering Facility: [facility] Address: [address] [place] [address] Performed By: #### 5 0190-8, 2131-9, 2275-4, 8 #### [facility] CLIA [id number] [address] [place] [address] [place] WBC (Bld) [#/Vol] 7.55 10*3/uL Normal 3.70-11.00 [facility] Comment on above: Order Comment: Speci men Type: BLOOD SPECIMEN Ordering Facility: [facility] Address: [address] [place] [address] Performed By: #### 5 0190-8, 2131-9, 2275-4, 8 #### [facility] CLIA [id number] [address] [place] [address] [place] Comprehensive metabolic 2000 panelon 03-13-2023 Albumin [Mass/Vol] 4.9 g/dL Normal 3.9-4.9 [facility] Comment on above: Order Comment: Speci men Type: BLOOD SPECIMEN Ordering Facility: [facility] Address: [address] [place] [address] Performed By: #### 5 0190-8, 9, 4, 8 #### [facility] CLIA [id number] [address] [place] [address] [place] ALP [Catalytic activity/Vol] 88 U/L Normal 34-123 [facility] Comment on above: Order Comment: Speci men Type: BLOOD SPECIMEN Ordering Facility: [facility] Address: [address] [place] [address] Performed By: #### 5 0190-8, 9, 2275-07, 8 #### [facility] CLIA [id number] [address] [place] [address] [place] ALT [Catalytic activity/Vol] 25 U/L Normal 7-38 [facility] Comment on above: Order Comment: Speci men Type: BLOOD SPECIMEN Ordering Facility: [facility] Address: [address] [place] [address] Performed By: #### 5 0190-8, 9, 2275-07, 8 #### [facility] CLIA [id number] [address] [place] [address] [place] Anion gap [Moles/Vol] 12 mmol/L Normal 9-18 [facility] Comment on above: Order Comment: Speci men Type: BLOOD SPECIMEN Ordering Facility: [facility] Address: [address] [place] [address] Performed By: #### 5 0190-8, 9, 2275-07, 8 #### [facility] CLIA [id number] [address] [place] [address] [place] AST [Catalytic activity/Vol] 18 U/L Normal 13-35 [facility] Comment on above: Order Comment: Speci men Type: BLOOD SPECIMEN Ordering Facility: [facility] Address: [address] [place], [place] [address] Performed By: #### 5 0190-8, 9, 2275-07, 8 #### [facility] CLIA [id number] [address] [place] [address] [place] Bilirubin [Mass/Vol] 0.2 mg/dL Normal 0.2-1.3 [facility] Comment on above: Order Comment: Speci men Type: BLOOD SPECIMEN Ordering Facility: [facility] Address: [address] [place] [address] Performed By: #### 5 0190-8, 9, 2275-07, 2283-11 #### [facility] CLIA [id number] [address] [place] [address] [place] Calcium [Mass/Vol] 10.0 mg/dL Normal 8.5-10.2 [facility] Comment on above: Order Comment: Speci men Type: BLOOD SPECIMEN Ordering Facility: [facility] Address: [address] [place] [address] Performed By: #### 5 0190-8, 9, 2275-07, 8 #### [facility] CLIA [id number] [address] [place] [address] [place] Chloride [Moles/Vol] 101 mmol/L Normal 97-105 [facility] Comment on above: Order Comment: Speci men Type: BLOOD SPECIMEN Ordering Facility: [facility] Address: [address] [place], [place] [id number] Performed By: #### 5 0190-8, 9, 2275-07, 2283-11 #### [facility] CLIA [id number] [address] [place] [address] [place] CO2 [Moles/Vol] 23 mmol/L Normal 22-30 [facility] Comment on above: Order Comment: Speci men Type: BLOOD SPECIMEN Ordering Facility: [facility] Address: [facility] [place] [address] Performed By: #### 5 0190-8, 9, 2275-07, 8 #### [facility] CLIA [id number] [address] [place] [address] [place] Creatinine [Mass/Vol] 0.81 mg/dL Normal 0.58-0.96 [facility] Comment on above: Order Comment: Speci men Type: BLOOD SPECIMEN Ordering Facility: [facility] Address: [address] [place] [address] Performed By: #### 5 0190-8, 9, 2275-07, 2283-11 #### [facility] CLIA [id number] [address] [place] [address] [place] Creatinine and Glomerular filtration rate.predicted panel (S/P/Bld) 96 mL/min/1.73m??? Normal >=60 [facility] Comment on above: Order Comment: Speci men Type: BLOOD SPECIMEN Ordering Facility: [facility] Address: [address] [place] [address] Result Comment: Hawa mated Glomerular Filtration Rate (eGFR) is calculated using the 2020 CKD-EPI creatinine equation. This equation utilizes serum creatinine, sex, and age as parameters. The creatinine assay has traceable calibration to isotope dilution-mass spectrometry. Refer to KDIGO guidelines for clinical interpretation. In patients with unstable renal function, e.g. those with acute kidney injury, the eGFR may not accurately reflect actual GFR. Performed By: #### 5 0190-8, 9, 2275-07, 2283-11 #### [facility] CLIA [id number] [address] [place] [address] [place] Glucose [Mass/Vol] 87 mg/dL Normal 74-99 [facility] Comment on above: Order Comment: Speci men Type: BLOOD SPECIMEN Ordering Facility: [facility] Address: [address] [place] [address] Result Comment: The [place] Diabetes Association (ADA) provides guidance for cutoff values for fasting glucose and random glucose. The ADA defines fasting as no caloric intake for at least 8 hours. Fasting plasma glucose results between 100 to 125 mg/dL indicate increased risk for diabetes (prediabetes). Fasting plasma glucose results greater than or equal to 126 mg/dL meet the criteria for diagnosis of diabetes. In the absence of unequivocal hyperglycemia, results should be confirmed by repeat testing. In a patient with classic symptoms of hyperglycemia or hyperglycemic crisis, random plasma glucose results greater than or equal to 200 mg/dL meet the criteria for diagnosis of diabetes. Reference: Standards of Medical Care in Diabetes 2016, [place] [employer]. Diabetes Care. 2016.39(Suppl 1). Performed By: #### 5 0190-8, 9, 2275-07, 2283-11 #### [facility] CLIA [id number] [address] [place] [address] [place] Potassium [Moles/Vol] 4.3 mmol/L Normal 3.7-5.1 [facility] Comment on above: Order Comment: Speci men Type: BLOOD SPECIMEN Ordering Facility: [facility] Address: [address] [place] [address] Performed By: #### 5 0190-8, 2131-12, 2275-07, 2283-11 #### [facility] CLIA [id number] [address] [place] [address] [place] Protein [Mass/Vol] 7.7 g/dL Normal 6.3-8.0 [facility] Comment on above: Order Comment: Speci men Type: BLOOD SPECIMEN Ordering Facility: [facility] Address: [address] [place] [address] Performed By: #### 5 0190-8, 2131-12, 2275-07, 2283-11 #### [facility] CLIA [id number] [address] [place] [address] [place] Sodium [Moles/Vol] 136 mmol/L Normal 136-144 [facility] Comment on above: Order Comment: Speci men Type: BLOOD SPECIMEN Ordering Facility: [facility] Address: [address] [place] [address] Performed By: #### 5 0190-8, 2131-12, 2275-07, 2283-11 #### [facility] CLIA [id number] [address] [place] [address] [place] Urea nitrogen [Mass/Vol] 11 mg/dL Normal 7-21 [facility] Comment on above: Order Comment: Speci men Type: BLOOD SPECIMEN Ordering Facility: [facility] Address: [address] [place] [address] Performed By: #### 5 0190-8, 2131-12, 2275-07, 2283-11 #### [facility] CLIA [id number] [address] [place] [address] [place] Ferritin SerPl-mCncon 2022 Ferritin [Mass/Vol] 58.0 ng/mL Normal 14.7-205.1 [facility] Comment on above: Order Comment: Speci men Type: BLOOD SPECIMEN Ordering Facility: [facility] Address: [address] [place] [address] Performed By: #### 5 0190-8, 2131-12, 2275-07, 2283-11 #### [facility] CLIA [id number] [address] [place] [address] [place] Folate SerPl-mCncon 03-13-20 Folate [Mass/Vol] 18.5 ng/mL Normal >4.7 [facility] Comment on above: Order Comment: Speci men Type: BLOOD SPECIMEN Ordering Facility: [facility] Address: [address] [place] [address] Performed By: #### 5 0190-8, 2131-12, 2275-07, 2283-11 #### [facility] CLIA [id number] [address] [place] [address] [place] Iron and Iron binding capaci ty panelon 03-13-2023 Iron [Mass/Vol] 55 ug/dL Normal 41-186 [facility] Comment on above: Order Comment: Speci men Type: BLOOD SPECIMEN Ordering Facility: [facility] Address: [address] [place] [address] Performed By: #### 5 0190-8, 9, 2275-4, 2283-11 #### [facility] CLIA [id number] [address] [place] [address] [place] Iron binding capacity [Mass/Vol] 365 ug/dL Normal 232-386 [facility] Comment on above: Order Comment: Speci men Type: BLOOD SPECIMEN Ordering Facility: [facility] Address: [address] [place] [address] Performed By: #### 5 0190-8, 9, 4, 2283-11 #### [facility] CLIA [id number] [address] [place] [address] [place] Iron/TIBC [Molar ratio] 15.1 % Normal 15.0-57.0 [facility] Comment on above: Order Comment: Speci men Type: BLOOD SPECIMEN Ordering Facility: [facility] Address: [address] [place] [address] Performed By: #### 5 0190-8, 9, 4, 2283-11 #### [facility] CLIA [id number] [address] [place] [address] [place] Vit [facility] Cobalamin (Vitamin B12) [Mass/Vol] 376 pg/mL Normal 232-1245 [facility] Comment on above: Order Comment: Speci men Type: BLOOD SPECIMEN Ordering Facility: [facility] Address: [address] [place] [address] Performed By: #### 5 0190-8, 9, 4, 2283-11 #### [facility] CLIA [id number] [address] [place] [address] [place] Ambulatory Visit Summaryon 1 Ambulatory Visit Summary MADHU RENDON :1985 Visit Date:02/15/2023 Ambulatory Visit Instructions Your Diagnosis BMI 38.0-38.9,adult Morbid obesity Gestational diabetes Right otitis externa Your Care Team Attending Physician - Evans CASAS DO, FAAFP Primary Care Physician - Evans CASAS DO, FAAFP This Is Your Medications List enoxaparin (Lovenox 40 mg/0.4 mL Injection) metformin (MetFORMIN (Eqv-Glucophage XR) 500 mg oral tablet, extended release) Procedures Performed Biopsy of breast (06/14/2013), Extraction of wisdom tooth (2006), endoscopy for ovarian cysts to drain. Discharge Vitals Temperature (Oral) 36.9 ?C Heart Rate (Peripheral) 80 Respiratory Rate 18 Blood Pressure 122/74 Height 168 cm Height 66 in Weight 108.0 kg Weight 237.6 lb BMI 38.27 What to do next You Need to Schedule the Following Appointments Follow Up with Evans CASAS DO, FAAFP, FAM, PED When: In 2 months Where: [address] [facility], [place] [address]- You Need to Complete the Following HgbA1c, Blood, Routine collect, 02/15/23, Order for future visit, Lab Collect, Gestational diabetes, Print Label By Order Location Thyroid Stimulating Hormone, Blood, Routine collect, 02/15/23, Order for future visit, Lab Collect, Gestational diabetes, Print Label By Order Location Medications What How Much When Instructions Unchanged enoxaparin (Lovenox 40 mg/ 0.4 mL Injection) 40 Milligram Subcutaneous Every 24 hours Unchanged metformin (MetFORMIN (Eqv-Glucophage XR) 500 mg oral tablet, extended release) 2 Tablets By Mouth Every day Medications and Immunizations Administered Not Given influenza virus vaccine, inactivated, Patient Refuses Allergies Milk Products (Illness) ciprofloxacin (Numbness and tingling of skin, Nausea) Problems Ongoing - Any problem that you are currently receiving treatment for. Antiphospholipid syndrome Blood pressure elevated without history of HTN COVID-19 vaccine dose declined Dry mouth Fatigue Gestational diabetes H/O: CVA History of asthma History of COVID-19 History of gestational diabetes History of kidney stones Hx of iron deficiency anemia Hyperventilation syndrome Hypoglycemia Increased urinary frequency Inhalation of noxious fumes Non-smoker NEETA (obstructive sleep apnea) Other sleep disorders Paresthesia of bilateral legs Right otitis externa Right ovarian cyst Snoring Weakness Historical - Any problem that you are no longer receiving treatment for. Abdominal pain Acute URI Anxiety and depression Bloody stools Class 1 obesity with body mass index (BMI) of 34.0 to 34.9 in adult Dizziness Dysuria Family history of anemia Family history of ovarian cyst SOB (shortness of breath) Spontaneous miscarriage Suspected COVID-19 virus infection Vaginal tabitha Normal [facility] Family Medicine Office/Clini c Noteon 02-15-2023 Family Medicine Office/Clinic Note Chief Complaint States since Sunday evening her right ear is draining and is a little painful History of Present Illness [employer] draining since Sunday evening and a little painful ear better this morning and no drainage. Reports no fever or chills. Ever since delivering her baby when she bends over to breast-feed she feels something in the right side of her abdomen, reports abnormal stools with no difficulty with urination. Dr. Valencia manage my gestational diabetes. Sugars now are between 115 and 130. Taking Glucophage Exar 500 mg/day. Would like to review thyroid labs with you as well. Here for follow up Have you had any ER visits or any hospitalizations since last visit? yes Are you compliant with your medications and no difficulty affording your medications? yes Do you have side effects from the medication? no Are you compliant with your diet? yes Do you exercise? yes Do you have any of the following symptoms? Chest pain? no Palpitations? no WHITE/SOB? no Orthopnea? no PND? no Edema? no Have you had any recent cardiopulmonary testing? no Review of Systems PHQ Score Initial Depression Screen Score: 0 ROS - Provider Constitutional: no fever, no chills, no sweats, no weakness. Skin: no Jaundice, no rash, no lesions, no petechiae. ENMT: no ear pain, no sore throat, no congestion, no hoarseness. Respiratory: no shortness of breath, no cough, no orthopnea, no wheezing. Cardiovascular: no chest pain, no palpitations, no edema. Gastrointestinal: no nausea, no vomiting, no diarrhea, no GI bleeding.no constipationnoheartburn Genitourinary: no dysuria, no hematuria, no discharge, no pain.nofreq/urgency Musculoskeletal: no back pain, no trauma.nojoint pain Neurologic: no headache, no dizziness, no numbness, no weakness. Psychiatric: no sleeping problems, no irritability, no mood swings/depression. Heme/Lymph: no bleeding tendency, no bruising tendency, no petechiae, no swollen lymph nodes no Allergy/Imunology no seasonal allergies, no food allergies, no recurrent infections, no impaired immunity. Additional ROS info: Except as noted in the above Review of Systems and in the History of Present Illness all other systems have been reviewed and are negative or noncontributory. Physical Exam Vitals & Measurements T: 36.9 ?C(Oral) HR: 80(Peripheral) RR: 18 BP: 122/74 SpO2: 98% HT: 66 in HT: 168 cm WT: 108.0 kg WT: 237.6 lb BMI: 38.27 General: Well developed, well nourished, in no acute distress Mouth: Mucous membranes moist. Normal oropharynx, and posterior pharynx without lesions or exudates. Tongue normal Neck: Neck supple. No masses or palpable cervical nodes. Trachea midline. Thyroid without nodules, masses, tenderness, or enlargement Lungs: Normal respiratory effort and clear to auscultation Cardio: Regular rate and rhythm, normal S1 and S2, no murmur, no rub Abdomen: Soft, non-distended, non-tender. no G/R/S/Masses Musculoskeletal: No deformity or scoliosis noted. Normal range of motion. Joints normal. No erythema, edema, effusion, or ecchymosis Extremity: No clubbing, cyanosis, edema, or deformity, with normal ROM in both upper and lower bilateral extremities Neurologic: Grossly normal Skin: No rashes, ulcerations, or suspicious lesions Mental Status: Alert and oriented x3. Normal mood and affect External auditory canals and tympanic membranes normal. No pain with tugging on auricle neither right nor left. Assessment/Plan 1. Right otitis externa (H60.91: Unspecified otitis externa, right ear) Ciprodex drops only if there is drainage and/or pain as directed Ordered: ciprofloxacin-dexamethason e otic, 4 drop(s), Otic, BID for 7 day(s), 7.5 mL, Refill(s) 0, Only use if drainage or pain of ear shake well before using, [facility] 1986, 168, cm, 02/15/23 9:49:00 EDT, Height/Length Dosing, 108, kg, 02/15/23 9:49:00 EDT, Weight Dosing 2. BMI 38.0-38.9,adult (Z68.38: Body mass index [BMI] 38.0-38.9, adult) The standard range for ages 18 and older is >=18.5 and < 25 kg/m2. Your BMI today was above this range, this falls in the overweight to obese category and there are medical benefits to weight loss. We can offer counselling, referral, and/or medical support in addressing this problem. Your BMI and weight management will be followed at subsequent visits. 3. Morbid obesity (E66.01: Morbid (severe) obesity due to excess calories) Diet and exercise 4. Gestational diabetes (O24.419: Gestational diabetes mellitus in , unspecified control) Followed per her aed trainer. She is continuing 500 mg of metformin XR once a day, was doing 1000 mg a day during but has since decreased. Her last A1c was 5.9 Ordered: HgbA1c Thyroid Stimulating Hormone Total time spent preparing the chart, conducting of the encounter with the patient and family and time spent documenting, reviewing, and ordering tests was 25 minutes. Follow-up With When Contact Information PRAVEEN Johnson (more content not included)... [facility] Comment on above: Result Comment: Elec tronically Signed By: PRAVEEN RESENDEZ [facility], Evans Tony\.br\Date and Time Signed: 02/15/23 10:13 EDT Patient Educationon 02-16-20 23 Patient Education Caregiving Ear Drops, Adult Your doctor has found that you have a condition that requires you to use ear drops. Ear drops are a medicine that is placed in the ear. You may need to use ear drops in one ear or both ears as told by your doctor. This sheet gives you information about how to use this medicine. Your doctor may also give you more instructions. Supplies needed: ? Cotton balls. ? Ear drops. How to put ear drops into your ear 1. Wash your hands for 20 seconds with soap and water. If you cannot use soap and water, use hand armature rewinder. 2. Make sure your ears are clean and dry. 3. If there is any earwax or fluid at the outer part of the ear canal, wipe it out gently with a cotton-tipped swab. 4. Warm the medicine by holding it in your hand for a few minutes. 5. Shake the medicine gently to mix the ear drops. 6. Use the dropper to draw up the ear drops. You will need to squeeze the round part of the dropper to do this. 7. Put the drops in your ear as told. Hold the dropper above your ear. Do not let the dropper touch your ear. The medicine may go in more easily if you pull the flap of your ear up and back while you put the drops in. 8. To make sure your ear soaks up the medicine, do one of these things: ? Lie down for 10 minutes. The ear with the medicine in it should face up. This will cause the drops to stay in the ear canal and fill the canal. ? Put a cotton ball in your ear. Do not push it deeper into your ear. Take out the cotton ball when the drops have been soaked up or after 15?30 minutes have passed. 9. If you need to put drops in your other ear, repeat the same steps. Your doctor will tell you if you should put drops in both ears. 10. Wash your hands for 20 seconds with soap and water after using ear drops. If you cannot use soap and water, use hand armature rewinder. Follow these instructions at home: ? Use the ear drops for as long as your doctor tells you to. Do not stop even if you begin to feel better. ? Always wash your hands for 20 seconds before and after handling the ear drops. ? Keep the ear drops at room temperature. ? Do not wash out your ears unless told to by your doctor. ? Keep all follow-up visits as told by your doctor. This is important. Contact a doctor if: ? Your condition gets worse. ? Your pain or itching gets worse. ? Unusual fluid is coming from your ear, especially if the fluid smells bad. ? You have new trouble hearing. ? You get a rash around your ear. ? You have used the ear drops for the amount of time told by your doctor, but you do not feel better. Get help right away if: ? You feel like the room is spinning and you feel like you might vomit. This condition is called vertigo. ? The outside of your ear becomes red or swollen. ? You have a very bad headache with or without a stiff neck. Summary ? Ear drops are a medicine that is put in the ear. ? Put the drops in your ear as told by your doctor. ? Use the ear drops for as long as your doctor tells you to. Do not stop even if your symptoms get better. ? Keep all follow-up visits as told by your doctor. This is important. This information is not intended to replace advice given to you by your health care provider. Make sure you discuss any questions you have with your health care provider. Document Revised: 02/11/2020 Document Reviewed: 02/11/2020 [employer] Patient Education ? 2022 [employer] Infectious Disease Otitis Externa Otitis externa is an infection of the outer ear canal. The outer ear canal is the area between the outside of the ear and the eardrum. Otitis externa is sometimes called swimmer's ear. What are the causes? Common causes of this condition include: ? Swimming in dirty water. ? Moisture in the ear. ? An injury to the inside of the ear. ? An object stuck in the ear. ? A cut or scrape on the outside of the ear or in the ear canal. What increases the risk? You are more likely to get this condition if you go swimming often. What are the signs or symptoms? ? Itching in the ear. This is often the first symptom. ? Swelling of the ear. ? Redness in the ear. ? Ear pain. The pain may get worse when you pull on your ear. ? Pus coming from the ear. How is this treated? This condition may be treated with: ? Antibiotic ear drops. These are often given for 10?14 days. ? Medicines to reduce itching and swelling. Follow these instructions at home: ? If you were prescribed antibiotic ear drops, use them as told by your doctor. Do not stop using them even if you start to feel better. ? Take fgya-ana-oiswjev and prescription medicines only as told by your doctor. ? Avoid getting water in your ears as told by your doctor. You may be told to avoid swimming or water sports for a few days. ? Keep all follow-up visits. How is this prevented? ? Keep your ears dry. Use the corner o (more content not included)... [facility] Patient Educationon 12-23-19 Patient Education Immunology Fatigue If you have fatigue, you feel tired all the time and have a lack of energy or a lack of motivation. Fatigue may make it difficult to start or complete tasks because of exhaustion. Occasional or mild fatigue is often a normal response to activity or life. However, long-term (chronic) or extreme fatigue may be a symptom of a medical condition such as: ? Depression. ? Not having enough red blood cells or hemoglobin in the blood (anemia). ? A problem with a small gland located in the lower front part of the neck (thyroid disorder). ? Rheumatologic conditions. These are problems related to the body's defense system (immune system). ? Infections, especially certain viral infections. Fatigue can also lead to negative health outcomes over time. Follow these instructions at home: Medicines ? Take enfu-wef-sixyeig and prescription medicines only as told by your health care provider. ? Take a multivitamin if told by your health care provider. ? Do not use herbal or dietary supplements unless they are approved by your health care provider. Eating and drinking ? Avoid heavy meals in the evening. ? Eat a well-balanced diet, which includes lean proteins, whole grains, plenty of fruits and vegetables, and low-fat dairy products. ? Avoid eating or drinking too many products with caffeine in them. ? Avoid alcohol. ? Drink enough fluid to keep your urine pale yellow. Activity ? Exercise regularly, as told by your health care provider. ? Use or practice techniques to help you relax, such as yoga, gerald chi, meditation, or massage therapy. Lifestyle ? Change situations that cause you stress. Try to keep your work and personal schedules in balance. ? Do not use recreational or illegal drugs. General instructions ? Monitor your fatigue for any changes. ? Go to bed and get up at the same time every day. ? Avoid fatigue by pacing yourself during the day and getting enough sleep at night. ? Maintain a healthy weight. Contact a health care provider if: ? Your fatigue does not get better. ? You have a fever. ? You suddenly lose or gain weight. ? You have headaches. ? You have trouble falling asleep or sleeping through the night. ? You feel angry, guilty, anxious, or sad. ? You have swelling in your legs or another part of your body. Get help right away if: ? You feel confused, feel like you might faint, or faint. ? Your vision is blurry or you have a severe headache. ? You have severe pain in your abdomen, your back, or the area between your waist and hips (pelvis). ? You have chest pain, shortness of breath, or an irregular or fast heartbeat. ? You are unable to urinate, or you urinate less than normal. ? You have abnormal bleeding from the rectum, nose, lungs, nipples, or, if you are female, the vagina. ? You vomit blood. ? You have thoughts about hurting yourself or others. These symptoms may be an emergency. Get help right away. Call 911. ? Do not wait to see if the symptoms will go away. ? Do not drive yourself to the hospital. Get help right away if you feel like you may hurt yourself or others, or have thoughts about taking your own life. Go to your nearest emergency room or: ? Call 911. ? Call the National Suicide Prevention Lifeline at or 710. This is open 24 hours a day. ? Text the Crisis Text Line at 630216. Summary ? If you have fatigue, you feel tired all the time and have a lack of energy or a lack of motivation. ? Fatigue may make it difficult to start or complete tasks because of exhaustion. ? Long-term (chronic) or extreme fatigue may be a symptom of a medical condition. ? Exercise regularly, as told by your health care provider. ? Change situations that cause you stress. Try to keep your work and personal schedules in balance. This information is not intended to replace advice given to you by your health care provider. Make sure you discuss any questions you have with your health care provider. Document Revised: 02/06/2022 Document Reviewed: 02/06/2022 [employer] Patient Education ? 2022 [employer] Urology Urodynamic Testing Urodynamic tests are done to determine how well your lower urinary tract is working. The lower urinary tract includes your bladder and the part of your body that drains urine from the bladder (urethra). When your kidneys filter your blood, urine is stored in your bladder until you feel the urge to urinate. Urination requires coordination between the nerves and muscles of your bladder and urethra. When your lower urinary tract is working well, you should be able to: ? Start urinating when your bladder is full. ? Empty your bladder completely. ? Control the flow of your urine. Why do I need urodynamic testing? You may need urodynamic testing to help find the cause of any of these problems: ? Leaking urine (inco (more content not included)... [facility] CHEMISTRYOrdered By: SYSTEM SYSTEM on 09-26-2022 Free T4 [Mass/Vol] 0.58 ng/dL Normal 0.58 - 1. 64 ng/dL [facility] TSH Qn 3.35 m[IU]/L Normal 0.34 - 5.60 mcIU/mL [facility] Albumin [Mass/Vol] 4.5 g/dL Normal 3.3 - 5.0 gm/dL [facility] Albumin/Globulin [Mass ratio] 1.4 {ratio} Normal 1.1 - 2.2 [facility] ALP [Catalytic activity/Vol] 62 [iU]/d Normal 21 - 98 Int._Unit/L [facility] ALT No additional P-5'-P [Catalytic activity/Vol] 27 [iU]/d Normal 6 - 46 Int._Unit/L [facility] Anion gap [Moles/Vol] 13 mmol/L Normal 6 - 16 mEq/L [facility] AST [Catalytic activity/Vol] 21 [iU]/d Normal 5 - 43 Int._Unit/L [facility] Bilirubin [Mass/Vol] 0.3 mg/dL Normal 0.0 - 1 .1 mg/dL [facility] Calcium [Mass/Vol] 9.6 mg/dL Normal 8.9 - 11. 1 mg/dL [facility] Chloride [Moles/Vol] 104 mmol/L Normal 101 - 1 11 mmol/L [facility] CO2 [Moles/Vol] 25 mmol/L Normal 21 - 31 mmol/L [facility] Cobalamin (Vitamin B12) [Mass/Vol] 211 pg/mL Normal 50 - 1500 pg/mL [facility] Creatinine [Mass/Vol] 0.9 mg/dL Normal 0.5 - 1.3 mg/dL [facility] Ferritin [Mass/Vol] 38 ng/mL Normal 11 - 307 ng/mL [facility] Folate [Mass/Vol] 13.5 ng/mL Normal >=6.7ng/mL [facility] Re misol GFR/1.73 sq M.predicted among non-blacks MDRD (S/P/Bld) [Vol rate/Area] 85 mL/min/1.73 m2 Normal >=59mL/min/ 1.73 m2 [facility] Chem S Globulin (S) [Mass/Vol] 3.3 g/dL Normal 1.4 - 4.0 gm/dL [facility] Glucose [Mass/Vol] 93 mg/dL Normal 55 - 199 mg/dL [facility] Iron [Mass/Vol] 56 ug/dL Normal 35 - 153 mcg/dL [facility] Iron binding capacity [Mass/Vol] 395 ug/dL Normal 250 - 400 mcg/dL [facility] Potassium [Moles/Vol] 3.7 mmol/L Normal 3.5 - 5.3 mmol/L [facility] Protein [Mass/Vol] 7.8 g/dL Normal 6.0 - 7.8 gm/dL [facility] Sodium [Moles/Vol] 138 mmol/L Normal 135 - 145 mmol/L [facility] Transferrin [Mass/Vol] 282 mg/dL Normal 200 - 370 mg/dL [facility] Urea nitrogen [Mass/Vol] 11 mg/dL Normal 5 - 21 mg/dL [facility] Urea nitrogen/Creatinine [Mass ratio] 12 mg/mg Normal 10 - 20 [facility] HEMATOLOGYOrdered By: SYSTEM SYSTEM on 09-26-2022 Basophils/100 WBC (Bld) 0.6 % Normal 0.0 - 2.0 % [facility] Basophils/Leukocytes Auto (Bld) [Pure # fraction] 0.0 E9/L Normal 0.0 - 0.2 E9/L [facility] Eosinophils/100 WBC (Bld) 1.1 % Normal 0.0 - 8.0 % [facility] Eosinophils/Leukocyt es Auto (Bld) [Pure # fraction] 0.1 E9/L Normal 0.0 - 0.5 E9/L [facility] Lymphocytes/100 WBC (Bld) 42.4 % Normal 14.0 - 50.0 % [facility] Lymphocytes/Leukocyt es Auto (Bld) [Pure # fraction] 3.4 E9/L Normal 1.0 - 4.0 E9/L [facility] Monocytes/100 WBC (Bld) 8.0 % Normal 4.0 - 14.0 % [facility] Monocytes/Leukocytes Auto (Bld) [Pure # fraction] 0.6 E9/L Normal 0.2 - 1.0 E9/L [facility] Neutrophils/100 WBC (Bld) 47.9 % Normal 36.0 - 75.0 % [facility] Neutrophils/Leukocyt es Auto (Bld) [Pure # fraction] 3.8 E9/L Normal 2.0 - 7.5 E9/L [facility] HEMATOLOGYOrdered By: Trena Castro on 09-26-2022 Erythrocyte distribution width (RBC) [Ratio] 14.5 % High 10.9 - 14.2 % [facility] Hematocrit (Bld) [Volume fraction] 37.4 % Normal 34.0 - 46.0 % [facility] Hemoglobin (Bld) [Mass/Vol] 13.1 g/dL Normal 12.0 - 16.0 gm/dL [facility] MCH (RBC) [Entitic mass] 30.6 pg Normal 27.0 - 34.0 pg [facility] MCHC (RBC) [Mass/Vol] 34.9 g/dL Normal 31.4 - 36.0 gm/dL [facility] MCV (RBC) [Entitic vol] 87.7 fL Normal 80.0 - 100.0 fL [facility] Platelet mean volume (Bld) [Entitic vol] 8.2 fL Normal 6.4 - 10.8 fL [facility] Platelets (Bld) [#/Vol] 334.0 E9/L Normal 150.0 - 500.0 E9/L [facility] RBC (Bld) [#/Vol] 4.3 E12/L Normal 4.3 - 5.9 E12/L [facility] WBC corrected for nucl RBC Auto (Bld) [#/Vol] 7.9 E9/L Normal 4.0 - 11.0 E9/L [facility] CHEMISTRYOrdered By: SYSTEM SYSTEM on 09-05-2022 Free T4 [Mass/Vol] 0.58 ng/dL Normal 0.58 - 1. 64 ng/dL [facility] TSH Qn 3.10 m[IU]/L Normal 0.34 - 5.60 mcIU/mL [facility] CHEMISTRYOrdered By: Mehran German on 09-05-2022 HbA1c (Bld) [Mass fraction] 5.9 % Normal <=5.9% [facility] ChemAutoSS CHEMISTRYOrdered By: SYSTEM SYSTEM on 08-07-2022 Free T4 [Mass/Vol] 0.71 ng/dL Normal 0.58 - 1. 64 ng/dL [facility] TSH Qn 3.77 m[IU]/L Normal 0.34 - 5.60 mcIU/mL [facility] CBC AUTO DIFFon 05-09-2022 BASO # 0.0 103/ul Normal 0.0-0.1 [facility] Comment on above: Performed By: #### H IV12 #### [facility] [address] [address] [address] Edward Gill Basophils/100 WBC (Bld) 0.4 % Normal 0.2-2.0 [facility] Comment on above: Performed By: #### H IV12 #### [facility] [address] [address] [address] Edward Gill EO # 0.1 103/ul Normal 0.0-0.7 [facility] Comment on above: Performed By: #### H IV12 #### [facility] [address] [address] [address] Edward Gill Eosinophils/100 WBC (Bld) 1.3 % Normal 0.9-7.0 [facility] Comment on above: Performed By: #### H IV12 #### [facility] [address] [address] [address] Edward Gill Erythrocyte distribution width (RBC) [Ratio] 16.6 % Critically high 11.0-15.0 [facility] Comment on above: Performed By: #### H IV12 #### [facility] [address] [address] [address] Edward Gill Hematocrit (Bld) [Volume fraction] 30.2 % Critically low 36.0-48.0 [facility] Comment on above: Performed By: #### H IV12 #### [facility] [address] [place] [address] Dr. Edward Gill Hemoglobin (Bld) [Mass/Vol] 10.5 g/dL Critically low 12.0-16.0 [facility] Comment on above: Performed By: #### H IV12 #### [facility] [address] [place] [address] Dr. Edward Gill IG # 0.04 10e3/ul Critically high 0.00-0.03 [facility] Comment on above: Performed By: #### H IV12 #### [facility] [address] [place] [address] Dr. Edward Gill IG % 0.4 % Normal 0.0-0.5 [facility] Comment on above: Performed By: #### H IV12 #### [facility] [address] [place] [address] Dr. Edward Gill LYMPH # 3.1 103/ul Normal 1.2-3.8 [facility] Comment on above: Performed By: #### H IV12 #### [facility] [address] [place] [address] Dr. Edward Gill Lymphocytes/100 WBC (Bld) 34.2 % Normal 20.5-60.0 [facility] Comment on above: Performed By: #### H IV12 #### [facility] [address] [place] [address] Dr. Edward Gill MANUAL DIFF REQ NO Normal [facility] Comment on above: Performed By: #### H IV12 #### [facility] [address] [place] [address] Dr. Edward Gill MCH (RBC) [Entitic mass] 30.3 pg Normal 26.7-34.0 [facility] Comment on above: Performed By: #### H IV12 #### [facility] [address] [address] [address] Edward Gill MCHC (RBC) [Mass/Vol] 34.8 g/dL Normal 29.9-35.2 [facility] Comment on above: Performed By: #### H IV12 #### [facility] [address] [place] [address] Dr. Edward Gill MCV (RBC) [Entitic vol] 87.0 fL Normal 81.0-99.0 [facility] Comment on above: Performed By: #### H IV12 #### [facility] [address] [place] [address] Dr. Edward Gill MONO # 0.7 103/ul Normal 0.3-0.8 [facility] Comment on above: Performed By: #### H IV12 #### [facility] [address] [place] [address] Dr. Edward Gill Monocytes/100 WBC (Bld) 7.5 % Normal 1.7-12.0 [facility] Comment on above: Performed By: #### H IV12 #### [facility] [address] [place] [address] Dr. Edward Gill NEUT # 5.0 103/ul Normal 1.4-6.5 [facility] Comment on above: Performed By: #### H IV12 #### [facility] [address] [place] [address] Dr. Edward Gill Neutrophils/100 WBC (Bld) 56.2 % Normal 43.0-75.0 [facility] Comment on above: Performed By: #### H IV12 #### [facility] [address] [place] [address] Dr. Edward Gill Platelet mean volume (Bld) [Entitic vol] 9.8 fL Normal 9.5-13.5 [facility] Comment on above: Performed By: #### H IV12 #### [facility] [address] [place] [address] Dr. Edward Gill PLT 238 103/ul Normal 150-450 [facility] Comment on above: Performed By: #### H IV12 #### [facility] [address] [address] [address] Edward Gill RBC 3.47 106/ul Critically low 4.20-5.40 [facility] Comment on above: Performed By: #### H IV12 #### [facility] [address] [address] [address] Edward Gill WBC 9.0 103/ul Normal 4.0-11.0 [facility] Comment on above: Performed By: #### H IV12 #### [facility] [address] [address] [address] Edward Gill SCREENon 05-09-2022 SCREEN Negative Normal [facility] Comment on above: Performed By: #### F ETSCRN #### [facility] [address] [place] [address] Dr. Edward Gill DIRECT COOMBSon 05-08-2022 DIRECT ALEJANDRA Negative Normal [facility] Comment on above: Performed By: #### D IRCMB #### [facility] [address] [address] [address] Edward Gill POINT OF CARE GLUCOSEon Glucose [Mass/Vol] 117 mg/dL Critically high 74-106 [facility] Comment on above: Performed By: #### P OCGLUC ####[facility] [address] [address]Dr. Edward Gill TYPE AND SCREENon 05-08-2022 TYPE AND SCREEN Negative Normal [facility] Comment on above: Performed By: #### T NS #### [facility] [address] [address] [address] Edward Gill CBC AUTO DIFFon 05-07-2022 BASO # 0.0 103/ul Normal 0.0-0.1 [facility] Comment on above: Performed By: #### H IV12 #### [facility] [address] [address] [address] Edward Gill Basophils/100 WBC (Bld) 0.2 % Normal 0.2-2.0 [facility] Comment on above: Performed By: #### H IV12 #### [facility] [address] [address] [address] Edward Gill EO # 0.0 103/ul Normal 0.0-0.7 [facility] Comment on above: Performed By: #### H IV12 #### [facility] [address] [place] [address] Dr. Edward Gill Eosinophils/100 WBC (Bld) 0.5 % Critically low 0.9-7.0 [facility] Comment on above: Performed By: #### H IV12 #### [facility] [address] [place] [address] Dr. Edward Gill Erythrocyte distribution width (RBC) [Ratio] 16.1 % Critically high 11.0-15.0 [facility] Comment on above: Performed By: #### H IV12 #### [facility] [address] [place] [address] Dr. Edward Gill Hematocrit (Bld) [Volume fraction] 32.1 % Critically low 36.0-48.0 [facility] Comment on above: Performed By: #### H IV12 #### [facility] [address] [place] [address] Dr. Edward Gill Hemoglobin (Bld) [Mass/Vol] 11.7 g/dL Critically low 12.0-16.0 [facility] Comment on above: Performed By: #### H IV12 #### [facility] [address] [place] [address] Dr. Edward Gill IG # 0.04 10e3/ul Critically high 0.00-0.03 [facility] Comment on above: Performed By: #### H IV12 #### [facility] [address] [place] [address] Dr. Edward Gill IG % 0.5 % Normal 0.0-0.5 [facility] Comment on above: Performed By: #### H IV12 #### [facility] [address] [place] [address] Dr. Edward Gill LYMPH # 2.4 103/ul Normal 1.2-3.8 [facility] Comment on above: Performed By: #### H IV12 #### [facility] [address] [address] [address] Edward Gill Lymphocytes/100 WBC (Bld) 27.2 % Normal 20.5-60.0 [facility] Comment on above: Performed By: #### H IV12 #### [facility] [address] [address] [address] Edward Gill MANUAL DIFF REQ NO Normal [facility] Comment on above: Performed By: #### H IV12 #### [facility] [address] [address] [address] Edward Gill MCH (RBC) [Entitic mass] 30.0 pg Normal 26.7-34.0 [facility] Comment on above: Performed By: #### H IV12 #### [facility] [address] [place] [address] Dr. Edward Gill MCHC (RBC) [Mass/Vol] 36.4 g/dL Critically high 29.9-35.2 [facility] Comment on above: Performed By: #### H IV12 #### [facility] [address] [place] [address] Dr. Edward Gill MCV (RBC) [Entitic vol] 82.3 fL Normal 81.0-99.0 [facility] Comment on above: Performed By: #### H IV12 #### [facility] [address] [place] [address] Dr. Edward Gill MONO # 0.7 103/ul Normal 0.3-0.8 [facility] Comment on above: Performed By: #### H IV12 #### [facility] [address] [place] [address] Dr. Edward Gill Monocytes/100 WBC (Bld) 7.7 % Normal 1.7-12.0 [facility] Comment on above: Performed By: #### H IV12 #### [facility] [address] [place] [address] Dr. Edward Gill NEUT # 5.5 103/ul Normal 1.4-6.5 [facility] Comment on above: Performed By: #### H IV12 #### [facility] [address] [address] [address] Edward Gill Neutrophils/100 WBC (Bld) 63.9 % Normal 43.0-75.0 [facility] Comment on above: Performed By: #### H IV12 #### [facility] [address] [address] [address] Edward Gill Platelet mean volume (Bld) [Entitic vol] 10.0 fL Normal 9.5-13.5 [facility] Comment on above: Performed By: #### H IV12 #### [facility] [address] [address] [address] Edward Gill PLT 274 103/ul Normal 150-450 [facility] Comment on above: Performed By: #### H IV12 #### [facility] [address] [address] [address] Edward Gill RBC 3.90 106/ul Critically low 4.20-5.40 [facility] Comment on above: Performed By: #### H IV12 #### [facility] [address] [address] [address] Edward Gill WBC 8.7 103/ul Normal 4.0-11.0 [facility] Comment on above: Performed By: #### H IV12 #### [facility] [address] [address] [address] Edward Gill Covid-19 PCR ([facility])on SARS-CoV-2 (COVID-19) RNA LELO+probe Ql (Unsp spec) Not detected Normal NOT DETECTED [facility] Comment on above: Result Comment: When diagnostic testing is negative, the possibility of a false negative should be considered in the context of a patient's recent exposures and the presence of clinical signs and symptoms consistent with SARS-CoV-2. This test is not yet approved or cleared by the [place] FDA. When there are no FDA-approved or cleared tests available, and other criteria are met, FDA can make tests available under an emergency access mechanism called an Emergency Use Authorization (EUA). The EUA for this test is supported by the [employer] of Health and Human Service's declaration that circumstances exist to justify the emergency use of in vitro diagnostics for the detection and/or diagnosis of the virus that causes COVID-19. This EUA will remain in effect for the duration of the COVID-19 declaration justifying emergency of IVDs, unless it is terminated or revoked by the FDA (after which the test may no longer be used). Performed By: #### H IV12 #### [facility] [address] [address] [address] Edward Gill DRUG SCREEN RAPID (URINE)on 05-07-2022 AMP Negative Normal NEGATIVE [facility] Comment on above: Performed By: #### D RUGRPD ####[facility] [address] [address]Dr. Edward Gill BAR Negative Normal NEGATIVE [facility] Comment on above: Performed By: #### D RUGRPD ####[facility] [address] [address]Dr. Edward Gill BUP Negative Normal NEGATIVE [facility] Comment on above: Performed By: #### D RUGRPD ####[facility] [address] [address]Dr. Edward Gill BZO Negative Normal NEGATIVE [facility] Comment on above: Performed By: #### D RUGRPD ####[facility] [address] [address]Dr. Edward Gill IND[place] Negative Normal NEGATIVE [facility] Comment on above: Performed By: #### D RUGRPD ####[facility] [address] [address]Dr. Edward Gill CUT-OFFS SEE BELOW Normal [facility] Comment on above: Result Comment: AMP (Amphetamine): 500ng/mL, BAR (Barbituates): 200 ng/mL, BZO (Benzodiazepines): 150 ng/mL, BUP (Buprenorphine): 10 ng/mL, INDIA (Cocaine): 150 ng/mL, mAMP (Methamphetamine): 500 ng/mL, MTD (Methadone): 200 ng/mL, OPI (Opiates): 100 ng/mL, OXY (Oxycodone): 100 ng/mL, PCP (Phencyclidine): 25 ng/mL, PPX (Propoxyphene): 300 ng/mL, THC (Cannabinoids): 50 ng/mL, TCA (Trycyclic Antidepressants): 300 ng/mL Performed By: #### D RUGRPD ####[facility] [address] [address]Dr. Edward Gill DRUG CUT HEADER DRUG CLASS TEST SYST EM CUT-OFF CONCENTRATIONS ARE FOLLOWS: Normal [facility] Comment on above: Performed By: #### D RUGRPD ####[facility] [address] [place], [place] [address]Dr. Edward Gill mAMP Negative Normal NEGATIVE [facility] Comment on above: Performed By: #### D RUGRPD ####[facility] [address] [place], [place] [address]Dr. Edward Gill MTD Negative Normal NEGATIVE [facility] Comment on above: Performed By: #### D RUGRPD ####[facility] [address] [place], [place] [address]Dr. Edward Gill OPI Negative Normal NEGATIVE [facility] Comment on above: Performed By: #### D RUGRPD ####[facility] [address] [place], [place] [address]Dr. Edward Gill OXY Negative Normal NEGATIVE [facility] Comment on above: Performed By: #### D RUGRPD ####[facility] [address] [place], [place] [address]Dr. Edward Gill PCP Negative Normal NEGATIVE [facility] Comment on above: Performed By: #### D RUGRPD ####[facility] [address] [place], [place] [address]Dr. Edward Gill PPX Negative Normal NEGATIVE [facility] Comment on above: Performed By: #### D RUGRPD ####[facility] [address] [place], [place] [address]Dr. Edward Gill TCA Negative Normal NEGATIVE [facility] Comment on above: Performed By: #### D RUGRPD ####[facility] [address] [place], [place] [address]DrLazara Gill THC Negative Normal NEGATIVE [facility] Comment on above: Performed By: #### D RUGRPD ####[facility] [address] [place], [place] [address]WeLazara Gill US PREG BIOPHY W NON STRESSo n 05-06-2022 US PREG BIOPHY W NON STRESS EXAMINATION: US PREG BIOPHY W NON STRESS HISTORY: Gestational diabetes mellitus ultrasound biophysical 04/28/2022 COMPARISON: No relevant comparison available. TECHNIQUE: Ultrasound biophysical profile was performed. FINDINGS: BREATHING MOVEMENTS: 2.0 GROSS BODY MOVEMENTS: 2.0 TONE: 2.0 QUALITATIVE AMNIOTIC FLUID VOLUME: 2.0 PRESENTATION: CEPHALIC HEART RATE: 134.3 bpm bpm. AMNIOTIC FLUID VOLUME: 14.6 cm GESTATIONAL AGE: 38 weeks 6 days CONCLUSION: 1. Total biophysical profile score 8.0. 2. Multiple loops of cord adjacent neck; no complete loop can be identified. Electronically authenticated by: HUMERA KIM Date: 2022-05-06 19:05 Normal [facility] US PREG BIOPHY W NON STRESSo n 05-01-2022 US PREG BIOPHY W NON STRESS EXAMINATION: US PREG BIOPHY W NON STRESS HISTORY: Gestational diabetes mellitus COMPARISON: No relevant comparison available. TECHNIQUE: Ultrasound biophysical profile was performed in the radiology department. non-reactive stress testing was performed by nursing staff in the birthing center. FINDINGS: BREATHING MOVEMENTS: 2.0 GROSS BODY MOVEMENTS: 2.0 TONE: 2.0 QUALITATIVE AMNIOTIC FLUID VOLUME: 2.0 PRESENTATION: CEPHALIC HEART RATE: 129.2 bpm H.B./min AMNIOTIC FLUID VOLUME: 15.5 cm cm GESTATIONAL AGE: 37 weeks 6 days CONCLUSION: Total biophysical profile score: 8.0 Electronically authenticated by: ANGIE GALDAMEZ Date: 2022-05-01 16:16 Normal [facility] GROUP B STREP CULTUREon 03-31 S. agalactiae Ag Ql (Unsp spec) Isolate 1 Streptococcus agalactiae Heavy growth of ORGANISM 1 Streptococcus agalactiae ANTIBIOTIC M.I.C RX STATUS Ampicillin <=0.25 S F Cefotaxime <=0.12 S F Ceftriaxone <=0.12 S F Clindamycin <=0.25 R F Erythromycin >=8 R F Inducible Clindamycin Resistance POS F Levofloxacin =0.5 S F Linezolid <=2 S F Tetracycline >=16 R F Vancomycin =0.5 S F Normal [facility] Comment on above: Performed By: #### G BSCX ####[facility] [address] [place], [place] [address]RuDr. Edward Gill US PREG BIOPHY W NON STRESSo n 04-17-2022 US PREG BIOPHY W NON STRESS EXAMINATION: US PREG BIOPHY W NON STRESS HISTORY: Gestational diabetes mellitus COMPARISON: Ultrasound biophysical 04/07/2022 TECHNIQUE: Ultrasound biophysical profile was performed. FINDINGS: BREATHING MOVEMENTS: 2.0 GROSS BODY MOVEMENTS: 2.0 TONE: 2.0 QUALITATIVE AMNIOTIC FLUID VOLUME: 2.0 PRESENTATION: CEPHALIC HEART RATE: 169.8 bpm bpm. AMNIOTIC FLUID VOLUME: 13.3 cm GESTATIONAL AGE: 35 weeks 6 days CONCLUSION: Total biophysical profile score 8.0. Electronically authenticated by: HUMERA KIM Date: 2022-04-17 17:08 Normal [facility] US PREG GROWTHon 04-17-2022 US PREG GROWTH EXAMINATION: US PREG GROWTH HISTORY: Gestational diabetes mellitus COMPARISON: Ultrasound growth 03/16/2022 FINDINGS: Heart Rate: 169.8 bpm Number: 1.0 Position: CEPHALIC Amniotic Fluid Volume: 13.3 cm Maximum Vertical Pocket: 5.3 cm BIOMETRY: BPD: 9.1 cm cm; 36 weeks 6 days HC: 33.2 cmcm; 37 weeks 6 days AC: 32.3 cm cm; 36 weeks 1 days FL: 6.9 cm cm; 35 weeks 4 days EFW: 2894.9 grams; 63% FL/AC: 21.5 FL/BPD: 76.2 HC/AC: 1.0 GESTATIONAL AGE: Age by EDC: 35 weeks 6 days KLAUDIA by EDC: 05/13/2022 Age by US: 36 weeks 4 days KLAUDIA by US: 05/08/2022 IMPRESSION: 1. Single live intrauterine with growth detailed above. Electronically authenticated by: HUMERA KIM Date: 2022-04-17 16:49 Normal [facility] US PREG BIOPHY W NON STRESSo n 04-12-2022 US PREG BIOPHY W NON STRESS EXAMINATION: US PREG BIOPHY W NON STRESS HISTORY: Gestational diabetes mellitus COMPARISON: Ultrasound biophysical 03/31/2022 TECHNIQUE: Ultrasound biophysical profile was performed. Study was just now presented for evaluation. FINDINGS: BREATHING MOVEMENTS: 2.0 GROSS BODY MOVEMENTS: 2.0 TONE: 2.0 QUALITATIVE AMNIOTIC FLUID VOLUME: 2.0 PRESENTATION: CEPHALIC HEART RATE: 129.1 bpm bpm. AMNIOTIC FLUID VOLUME: 14.1 cm GESTATIONAL AGE: 34 weeks 6 days CONCLUSION: Total biophysical profile score 8.0. Electronically authenticated by: HUMERA KIM Date: 2022-04-12 08:56 Normal [facility] GLUCOSE, BLOOD (POC)on 04-05 Glucose [Mass/Vol] 106 mg/dL Abnormal 74 - 99 mg/dL [facility] US PREG BIOPHY W NON STRESSo n 04-01-2022 US PREG BIOPHY W NON STRESS EXAMINATION: US PREG BIOPHY W NON STRESS HISTORY: Gestational diabetes mellitus COMPARISON: Ultrasound biophysical 03/24/2022 TECHNIQUE: Ultrasound biophysical profile was performed. FINDINGS: BREATHING MOVEMENTS: 2.0 GROSS BODY MOVEMENTS: 2.0 TONE: 2.0 QUALITATIVE AMNIOTIC FLUID VOLUME: 2.0 PRESENTATION: CEPHALIC HEART RATE: 156.1 bpm bpm. AMNIOTIC FLUID VOLUME: 15.8 cm GESTATIONAL AGE: 33 weeks 6 days CONCLUSION: Total biophysical profile score 8.0. Electronically authenticated by: HUMERA KIM Date: 2022-04-01 16:08 Normal [facility] US PREG BIOPHY W NON STRESSo n 03-27-2022 US PREG BIOPHY W NON STRESS EXAMINATION: US PREG BIOPHY W NON STRESS HISTORY: Gestational diabetes mellitus COMPARISON: Ultrasound growth 03/16/2022 TECHNIQUE: Ultrasound biophysical profile was performed. FINDINGS: BREATHING MOVEMENTS: 2.0 GROSS BODY MOVEMENTS: 2.0 TONE: 2.0 QUALITATIVE AMNIOTIC FLUID VOLUME: 2.0 PRESENTATION: CEPHALIC HEART RATE: 138.5 bpm bpm. AMNIOTIC FLUID VOLUME: 13.4 cm GESTATIONAL AGE: 32 weeks 6 days CONCLUSION: Total biophysical profile score 8.0. Electronically authenticated by: HUMERA KIM Date: 2022-03-27 08:54 Normal [facility] US PREG GROWTHon 03-17-2022 US PREG GROWTH EXAMINATION: US PREG GROWTH HISTORY: Maternal history of gestational diabetes COMPARISON: Ultrasound transvaginal 09/23/2021 FINDINGS: Heart Rate: 135.0 bpm Number: 1.0 Position: CEPHALIC Amniotic Fluid Volume: 15.1 cm Maximum Vertical Pocket: 6.4 cm BIOMETRY: BPD: 8.9 cm cm; 35 weeks 6 days ; > 97% HC: 31.8 cmcm; 35 weeks 6 days; > 97% AC: 29.0 cm cm; 33 weeks 0 days; 84% FL: 6.3 cm cm; 32 weeks 4 days; 62% EFW: 2198.7 grams; 90% FL/AC: 21.7 FL/BPD: 71.0 HC/AC: 1.1 GESTATIONAL AGE: Age by EDC: 31 weeks 5 days KLAUDIA by EDC: 05/13/2022 Age by US: 34 weeks 2 days KLAUDIA by US: 04/25/2022 IMPRESSION: 1. Single live intrauterine with growth detailed above. 2. BPD and HC are > 97%. Electronically authenticated by: HUMERA KIM Date: 2022-03-17 06:04 Normal [facility] TSHon 02-25-2022 TSH 2.586 uIU/mL Normal 0.358-3.[address] [facility] Comment on above: Performed By: #### H IV12 #### [facility] [address] [address] [address] Edward Gill TYPE AND SCREENon 02-25-2022 TYPE AND SCREEN Negative Normal [facility] Comment on above: Performed By: #### T NS #### [facility] [address] [address] [address] Edward Gill PAP ACOG PANEL 2: 30 to 65on 02-21-2022 . . Normal [facility] Comment on above: Result Comment: Perf ormed at: WB Performed By: #### 4 [id number] ####[facility] [address] [address]Dr. Edward Gill Age Gdln ACOG Testing 30-65 [facility] Comment on above: Performed By: #### 4 [id number] ####[facility] [address] [address]Dr. Edward Gill DIAGNOSIS: Comment Normal [facility] Comment on above: Result Comment: NEGA TIVE FOR INTRAEPITHELIAL LESION OR MALIGNANCY. Performed at: WB Performed By: #### 4 [id number] ####[facility] [address] [place], [place] [address]DrLazara Gill HPV Aptima Negative Normal Negative [facility] Comment on above: Result Comment: This nucleic acid amplification test detects fourteen high-risk HPV types (16,18,31,33,35,39,45,51,52,56,58,59,66,68) without differentiation. Performed at: =G Performed By: #### 4 [id number] ####[facility] [address] [place], [place] [address]DrLazara Gill Methodology: Comment Normal [facility] Comment on above: Result Comment: This liquid based ThinPrep(R) pap test was screened with the use of an image guided system. Performed at: WB Performed By: #### 4 [id number] ####[facility] [address] [place], [place] [address]DrLazara Gill Note: Comment Normal [facility] Comment on above: Result Comment: The Pap smear is a screening test designed to aid in the detection of premalignant and malignant conditions of the uterine cervix. It is not a diagnostic procedure and should not be used as the sole means of detecting cervical cancer. Both false-positive and false-negative reports do occur. . Performed at: WB Performed By: #### 4 [id number] ####[facility] [address] [place], [place] [address]DrLazara Gill Performed by: Comment Normal [facility] Comment on above: Result Comment: Zenaida Diop, Warp Tension Tester (ASCP) Performed at: WB Performed By: #### 4 [id number] ####[facility] [address] [place], [place] [address]DrLazara Gill Specimen adequacy: Comment Normal [facility] Comment on above: Result Comment: Sati sfactory for evaluation. No endocervical component is identified. Performed at: WB Performed By: #### 4 [id number] ####[facility] [address] [place], [place] [address]DrLazara Gill CHLAMYDIA/GONOCOCCUS LELO (SW AB/URINE/PAPon 02-16-2022 Chlamydia trachomatis, LELO Negative Normal Negative [facility] Comment on above: Performed By: #### C T/NGNA ####[facility] [address] [address]Dr. Edward Gill Neisseria gonorrhoeae, LELO Negative Normal Negative [facility] Comment on above: Performed By: #### C T/NGNA ####[facility] [address] [address]Dr. Edward Gill VAGINITIS/VAGINOSIS DNA PROB [place] 02-16-2022 Tabitha species Negative Normal Negative [facility] Comment on above: Performed By: #### V AGINT ####[facility] [address] [address]Dr. Edward Gill Gardnerella vaginalis Negative Normal Negative [facility] Comment on above: Performed By: #### V AGINT ####[facility] [address] [address]Dr. Edward Gill Trichomonas vaginalis Negative Normal Negative [facility] Comment on above: Performed By: #### V AGINT ####[facility] [address] [address]Dr. Edward Gill TSHon 01-24-2022 TSH 1.536 uIU/mL Normal 0.358-3.740 [facility] Comment on above: Performed By: #### T SH ####[facility] [address] [place], [place] [address]Dr. Edward Gill GLUCOSE - 1HRon 01-07-2022 Glucose [Mass/Vol] 160 mg/dL Critically high 74-106 T [facility] Comment on above: Performed By: #### G LU1HR ####[facility] [address] [address]Dr. Edward Gill TSHon 12-28-2021 TSH 1.899 uIU/mL Normal 0.358-3.740 [facility] Comment on above: Performed By: #### H IV12 #### [facility] [address] [place], [place] [address] Dr. Edward Gill AFP, Maternalon 11-24-2021 Determined by Ultrasound [facility] Comment on above: Performed By: #### A AFPM #### [address] [address] [employer] Specialist: Pancho Cano MD [address] [phone] [employer] Specialist: Zhang Bledsoe MD Due Date SEE NOTE Normal [facility] Comment on above: Result Comment: Resu lts for Estimated Due Date: 05 13 22 Performed By: #### A AFPM #### [address] [address] [employer] Specialist: Pancho Cano MD [address] [phone] [employer] Specialist: Zhang Bledsoe MD Family History No [facility] Comment on above: Performed By: #### A AFPM #### [address] [address] [employer] Specialist: Pancho Cano MD [address] [phone] [employer] Specialist: Zhang Bledsoe MD Gestat Age (exact) 15 wks, 2 days Normal [facility] Comment on above: Performed By: #### A AFPM #### [address] [address] [employer] Specialist: Pancho Cano MD [address] [phone] [employer] Specialist: Zhang Bledsoe MD Ins Req Matern Diab No [facility] Comment on above: Performed By: #### A AFPM #### [address] [address] [employer] Specialist: Pancho Cano MD [address] [address] [employer] Specialist: Zhang Bledsoe MD Interpretation Screen Neg [facility] Comment on above: Result Comment: (NOT E) INTERPRETATION: SCREEN NEGATIVE for open spina bifida Neural Tube Defects (NTD) Negative Pre-Test Post-Test Cutoff Neural Tube Defects Risks 1:1030 1:2690 1:250 Comments: The risk of an open neural tube defect is less than the screening cut-off. This test was developed and its performance characteristics determined by [employer]. It has not been cleared or approved by the [place] Food and Drug Administration. This test was performed in a CLIA certified laboratory and is intended for clinical purposes. Performed By: #### A AFPM #### [address] [address] [employer] Specialist: Pancho Cano MD [address] [phone] [employer] Specialist: Zhang Bledsoe MD [age] [facility] Comment on above: Performed By: #### A AFPM #### [address] [address] [employer] Specialist: Pancho Cano MD [address] [phone] [employer] Specialist: Zhang Bledsoe MD Maternal Race Nonblack [facility] Comment on above: Performed By: #### A AFPM #### [facility] [address] [employer] [address] [place] [address] [employer] Specialist: Pancho Cano MD [address] [phone] [employer] Specialist: Zhang Bledsoe MD Maternal Weight 228.0 lbs. [facility] Comment on above: Performed By: #### A AFPM #### [facility] [address] [address] [employer] Specialist: Pancho Cano MD [address] [address] [employer] Specialist: Zhang Bledsoe MD MoM for AFP 1.52 Normal [facility] Comment on above: Performed By: #### A AFPM #### [address] [address] [employer] Specialist: Pancho Cano MD [address] [phone] [employer] Specialist: Zhang Bledsoe MD Number of Fetuses Joe Normal [facility] Comment on above: Performed By: #### A AFPM #### [address] [address] [employer] Specialist: Pancho Cano MD [address] [phone] [employer] Specialist: Zhang Bledsoe MD Patient's AFP 35 ng/mL Normal [facility] Comment on above: Performed By: #### A AFPM #### [address] [address] [employer] Specialist: Pancho Cano MD [address] [phone] [employer] Specialist: Zhang Bledsoe MD Smoking No Normal [facility] Comment on above: Performed By: #### A AFPM #### [address] [address] [employer] Specialist: Pancho Cano MD [address] [phone] [employer] Specialist: Zhang Bledsoe MD Specimen See Note [facility] Comment on above: Result Comment: (NOT E) Initial sample Performed by [employer], [address] [place] [phone] [email or web address], Yayo Moncada MD, PHD, Lab. Director Performed By: #### A AFPM #### [address] [address] [employer] Specialist: Pancho Cano MD [address] [address] [employer] Specialist: Zhang Bledsoe MD AFP, Maternalon 11-22-2021 Current Smoking NO [facility] Comment on above: Performed By: #### A AFPM #### [address] [address] [employer] Specialist: Pancho Cano MD [address] [address] [employer] Specialist: Zhang Bledsoe MD Dating [facility] Comment on above: Performed By: #### A AFPM #### [address] [address] [employer] Specialist: Pancho Cano MD [address] [phone] [employer] Specialist: Zhang Bledsoe MD Diabetic NO [facility] Comment on above: Performed By: #### A AFPM #### [address] [address] [employer] Specialist: Pancho Cano MD [address] [phone] [employer] Specialist: Zhang Bledsoe MD Donor Egg INFORMATION NOT PROVIDED [facility] Comment on above: Performed By: #### A AFPM #### [address] [address] [employer] Specialist: Pancho Cano MD [address] [phone] [employer] Specialist: Zhang Bledsoe MD Estimated Due Date [id number] [facility] Comment on above: Performed By: #### A AFPM #### [address] [address] [employer] Specialist: Pancho Cano MD [facility] [address] [place] [address] [employer] Specialist: Zhang Bledsoe MD Family History Negative [facility] Comment on above: Performed By: #### A AFPM #### [address] [address] [employer] Specialist: Pancho Cano MD [facility] [address] [place] [address] [employer] Specialist: Zhang Bledsoe MD In Vitro Fertalizat INFORMATION NOT PROVIDED [facility] Comment on above: Performed By: #### A AFPM #### [address] [address] [employer] Specialist: Pancho Cano MD [facility] [address] [place] [address] [employer] Specialist: Zhang Bledsoe MD LMP date [facility] Comment on above: Performed By: #### A AFPM #### [address] [address] [employer] Specialist: Pancho Cano MD [facility] [address] [place] [address] [employer] Specialist: Zhang Bledsoe MD Maternal date [facility] Comment on above: Performed By: #### A AFPM #### [address] [address] [employer] Specialist: Pancho Cano MD [facility] [address] [place] [address] [employer] Specialist: Zhang Bledsoe MD Maternal Weight 228 [facility] Comment on above: Performed By: #### A AFPM #### [address] [address] [employer] Specialist: Pancho Cano MD [facility] [address] [place] [address] [employer] Specialist: Zhang Bledsoe MD Monochorionic Twins NO [facility] Comment on above: Performed By: #### A AFPM #### [address] [address] [employer] Specialist: Pancho Cano MD [facility] [address] [place] [address] [employer] Specialist: Zhang Bledsoe MD Patient Weight Units LBS Normal [facility] Comment on above: Performed By: #### A AFPM #### [address] [address] [employer] Specialist: Pancho Cano MD [address] [address] [employer] Specialist: Zhang Bledsoe MD Race (Maternal) WHITE Normal [facility] Comment on above: Performed By: #### A AFPM #### [address] [address] [employer] Specialist: Pancho Cano MD [address] [address] [employer] Specialist: Zhang Bledsoe MD Repeat Specimen INFORMATION NOT PROVIDED [facility] Comment on above: Performed By: #### A AFPM #### [address] [address] [employer] Specialist: Pancho Cano MD [facility] [address] [place] [address] [employer] Specialist: Zhang Bledsoe MD Valproic/Carbamazep INFORMATION NOT PROVIDED [facility] Comment on above: Performed By: #### A AFPM #### [address] [address] [employer] Specialist: Pancho Cano MD [facility] [address] [place] [address] [employer] Specialist: Zhang Bledsoe MD MISCELLANEOUS TESTINGon 10-29 Send Out Report FWD TO [facility] TRK [phone] [facility] Test [facility] DILLON MCDOWELL S [facility] Miscellaneouson 11-21-2021 Send Out Report FWD TO [facility] TRK [phone] Normal [facility] Comment on above: Performed By: #### C MIS #### [facility] [address] [place], [place] [id number] [employer] Specialist: Pancoh Cano MD Test Name DILLON [facility] Normal [facility] Comment on above: Performed By: #### C MIS #### [facility] [address] [place], [place] [id number] [employer] Specialist: Pancho Cano MD HEP B SURFACE ANTIGEN SCREEN on 10-26-2021 HBsAg Screen Negative Normal Negative [facility] Comment on above: Performed By: #### H IV12 #### [facility] [address] [place], [place] [address] Dr. Edward Gill HEPATITIS C VIRUS AB W/ REFL EX QUANTon 10-26-2021 HCV AB <0.1 Normal 0.0-0.9 [facility] Comment on above: Performed By: #### H CVPCRR ####[facility] [address] [place], [place] [address]BoDr. Edward Gill Interpretation: Comment Normal [facility] Comment on above: Result Comment: Nega tive Not infected with HCV, unless recent infection is suspected or other evidence exists to indicate HCV infection. Performed By: #### H CVPCRR ####[facility] [address] [place], [place] [address]MnDr. Edward Gill HIV 1 AND 2 WITH REFLEXon HIV Screen 4th Generation wRfx Non-Reactive Normal Non Reactive [facility] Comment on above: Result Comment: HIV Negative HIV-1/HIV-2 antibodies and HIV-1 p24 antigen were NOT detected. There is no laboratory evidence of HIV infection. Performed By: #### H IV12 #### [facility] [address] [place] [address] Dr. Edward Gill RPR QUANTon 10-26-2021 Rapid Plasma Reagin, Quant Non-Reactive Normal NonRea<1:1 [facility] Comment on above: Result Comment: Plea se Note: This test does not meet current guidelines for screening and diagnosis of syphilis. This test is intended for following treatment response in patients being treated for syphilis infection. To screen for syphilis infection, a reflex cascade that includes both RPR and a treponema-specific assay should be utilized, such as Treponema pallidum (Syphilis) Screening [place] (928340) or Rapid Plasma Reagin (RPR) Test With Reflex to Quantitative RPR and Confirmatory Treponema pallidum Antibodies (363939). Performed By: #### R PRQ ####[facility] [address] [place], [place] [address]Dr. Edward Gill RUBELLA AB IGGon 10-26-2021 Rubella Antibodies, IgG 1.02 index Normal Immune >0.99 [facility] Comment on above: Result Comment: Non- immune <0.90 Equivocal 0.90 - 0.99 Immune >0.99 Performed By: #### R UBIGG ####[facility] [address] [place], [place] [address]Dr. Edward Gill CBC AUTO DIFFon 10-25-2021 BASO # 0.0 103/ul Normal 0.0-0.1 [facility] Comment on above: Performed By: #### H IV12 #### [facility] [address] [place] [address] Dr. Edward Gill Basophils/100 WBC (Bld) 0.3 % Normal 0.2-2.0 [facility] Comment on above: Performed By: #### H IV12 #### [facility] [address] [place] [address] Dr. Edward Gill EO # 0.1 103/ul Normal 0.0-0.7 [facility] Comment on above: Performed By: #### H IV12 #### [facility] [address] [place] [address] Dr. Edward Gill Eosinophils/100 WBC (Bld) 0.6 % Critically low 0.9-7.0 [facility] Comment on above: Performed By: #### H IV12 #### [facility] [address] [place] [address] Dr. Edward Gill Erythrocyte distribution width (RBC) [Ratio] 14.1 % Normal 11.0-15.0 [facility] Comment on above: Performed By: #### H IV12 #### [facility] [address] [place] [address] Dr. Edward Gill Hematocrit (Bld) [Volume fraction] 36.2 % Normal 36.0-48.0 [facility] Comment on above: Performed By: #### H IV12 #### [facility] [address] [place] [address] Dr. Edward Gill Hemoglobin (Bld) [Mass/Vol] 12.5 g/dL Normal 12.0-16.0 [facility] Comment on above: Performed By: #### H IV12 #### [facility] [address] [place] [address] Dr. Edward Gill IG # 0.05 10e3/ul Critically high 0.00-0.03 [facility] Comment on above: Performed By: #### H IV12 #### [facility] [address] [place] [address] Dr. Edward Gill IG % 0.4 % Normal 0.0-0.5 [facility] Comment on above: Performed By: #### H IV12 #### [facility] [address] [place] [address] Dr. Edward Gill LYMPH # 2.7 103/ul Normal 1.2-3.8 [facility] Comment on above: Performed By: #### H IV12 #### [facility] [address] [place] [address] Dr. Edward Gill Lymphocytes/100 WBC (Bld) 23.2 % Normal 20.5-60.0 [facility] Comment on above: Performed By: #### H IV12 #### [facility] [address] [place] [address] Dr. Edward Gill MANUAL DIFF REQ NO Normal [facility] Comment on above: Performed By: #### H IV12 #### [facility] [address] [address] [address] Edward Gill MCH (RBC) [Entitic mass] 30.6 pg Normal 26.7-34.0 [facility] Comment on above: Performed By: #### H IV12 #### [facility] [address] [address] [address] Edward Gill MCHC (RBC) [Mass/Vol] 34.5 g/dL Normal 29.9-35.2 [facility] Comment on above: Performed By: #### H IV12 #### [facility] [address] [place] [address] Dr. Edward Gill MCV (RBC) [Entitic vol] 88.7 fL Normal 81.0-99.0 [facility] Comment on above: Performed By: #### H IV12 #### [facility] [address] [place] [address] Dr. Edward Gill MONO # 0.7 103/ul Normal 0.3-0.8 [facility] Comment on above: Performed By: #### H IV12 #### [facility] [address] [place] [address] Dr. Edward Gill Monocytes/100 WBC (Bld) 5.8 % Normal 1.7-12.0 [facility] Comment on above: Performed By: #### H IV12 #### [facility] Laboratory [address] [place] [address] Dr. Edward Gill NEUT # 8.0 103/ul Critically high 1.4-6.5 [facility] Comment on above: Performed By: #### H IV12 #### [facility] Laboratory [address] [place] [address] Dr. Edward Gill Neutrophils/100 WBC (Bld) 69.7 % Normal 43.0-75.0 [facility] Comment on above: Performed By: #### H IV12 #### [facility] [address] [place] [address] Dr. Edward Gill Platelet mean volume (Bld) [Entitic vol] 9.3 fL Critically low 9.5-13.5 [facility] Comment on above: Performed By: #### H IV12 #### [facility] [address] [place] [address] Dr. Edward Gill PLT 338 103/ul Normal 150-450 [facility] Comment on above: Performed By: #### H IV12 #### [facility] [address] [address] [address] Edward Gill RBC 4.08 106/ul Critically low 4.20-5.40 [facility] Comment on above: Performed By: #### H IV12 #### [facility] [address] [address] [address] Edward Gill WBC 11.4 103/ul Critically high 4.0-11.0 [facility] Comment on above: Performed By: #### H IV12 #### [facility] [address] [place] [address] Dr. Edward Gill CULTURE URINEon 10-25-2021 CULTURE URINE Culture Observations : LIGHT GROWTH OF MIXED GENITAL MARTHA. NO POTENTIAL PATHOGENS SEEN. Normal [facility] Comment on above: Performed By: #### U RCX #### [facility] [address] [place] [address] Dr. Edward Gill GLYCOHEMOGLOBIN A1Con 2021 ADA RECOMMENDATION SEE BELOW Normal [facility] Comment on above: Result Comment: ADA RECOMMENDED LIMIT 4.0 - 6.0 ADA THERAPEUTIC TARGET < 7.0 ACTION SUGGESTED > 7.0 Performed By: #### A 1C #### [facility] [address] [place] [address] Dr. Edward Gill Glucose [Mass/Vol] 117 mg/dL Normal [facility] Comment on above: Performed By: #### A 1C #### [facility] [address] [place] [address] Dr. Edward Gill HbA1c (Bld) [Mass fraction] 5.7 % Normal 4.5-6.2 [facility] Comment on above: Performed By: #### A 1C #### [facility] [address] [address] [address] Edward Gill DILLON BOX TEST PT SEND OUTo n 10-25-2021 SENT TO REF LAB 10/25/2021 Normal [facility] Comment on above: Performed By: #### H IV12 #### [facility] [address] [address] [address] Edward Gill TSHon 10-25-2021 TSH 1.700 uIU/mL Normal 0.358-3.740 [facility] Comment on above: Performed By: #### T SH ####[facility] [address] [id number]. Edward Gill TYPE AND SCREENon 10-25-2021 TYPE AND SCREEN Negative Normal [facility] Comment on above: Performed By: #### T NS ####[facility] [address] [id number]. Edward Gill US PREG TVon 09-23-2021 US PREG TV EXAMINATION: US PREG TV HISTORY: Missed period COMPARISON: No relevant comparison available. FINDINGS: GESTATIONAL SAC: Present and normal appearing. POLE: Present and normal appearing. YOLK SAC: Present. CARDIAC: Present. UTERUS: Normal size and appearance. OVARIES: Right: Normal. Left: Not seen. CERVIX: 4.2 cm in length and closed. CUL-DE-SAC: Normal. OTHER: None. AGE BY LMP: 9 weeks, 2 days KLAUDIA BY LMP: 04/18/2022 AGE BY US CRL: 6 weeks, 6 days KLAUDIA BY US CRL: 05/13/2022 IMPRESSION: 1. Single live intrauterine . Electronically authenticated by: HUMERA KIM Date: 2021-09-23 10:27 Normal [facility] PREG QUANT HCGon 09-01-2021 HCG QUANT 1242 mIU/mL Normal [facility] Comment on above: Performed By: #### H IV12 #### [facility] [address] [address] [address] Edward Gill HCG RANGE SEE BELOW Normal [facility] Comment on above: Result Comment: 5-50 0-1 WEEK 40-300 1-2 WEEKS 100-1,000 2-3 WEEKS 500-6,000 3-4 WEEKS 5,000-200,000 1-2 MONTHS 10,000-100,000 2-3 MONTHS 3,000-50,000 2ND TRIMESTER 1,000-50,000 3RD TRIMESTER Performed By: #### H IV12 #### [facility] [address] [place] [address] Dr. Edward Gill CHEMISTRYOrdered By: SYSTEM SYSTEM on 08-31-2021 Anion gap [Moles/Vol] 15 mmol/L Normal 6 - 16 mEq/L [facility] Calcium [Mass/Vol] 9.5 mg/dL Normal 8.9 - 11. 1 mg/dL [facility] Chloride [Moles/Vol] 102 mmol/L Normal 101 - 1 11 mmol/L [facility] CO2 [Moles/Vol] 22 mmol/L Normal 21 - 31 mmol/L [facility] Creatinine [Mass/Vol] 0.9 mg/dL Normal 0.5 - 1.3 mg/dL [facility] GFR/1.73 sq M.predicted among blacks MDRD (S/P/Bld) [Vol rate/Area] mL/min/1.73 m2 Normal >=59mL/min/ 1.73 m2 [facility] Chem S GFR/1.73 sq M.predicted among non-blacks MDRD (S/P/Bld) [Vol rate/Area] mL/min/1.73 m2 Normal >=59mL/min/ 1.73 m2 [facility] Chem S Glucose [Mass/Vol] 85 mg/dL Normal 55 - 199 mg/dL [facility] Potassium [Moles/Vol] 3.9 mmol/L Normal 3.5 - 5.3 mmol/L [facility] Sodium [Moles/Vol] 135 mmol/L Normal 135 - 145 mmol/L [facility] Urea nitrogen [Mass/Vol] 6 mg/dL Normal 5 - 21 mg/dL [facility] Urea nitrogen/Creatinine [Mass ratio] 7 mg/mg Low 10 - 20 [facility] HEMATOLOGYOrdered By: SYSTEM SYSTEM on 08-31-2021 Basophils/100 WBC (Bld) 0.5 % Normal 0.0 - 2.0 % [facility] Basophils/Leukocytes Auto (Bld) [Pure # fraction] 0.0 E9/L Normal 0.0 - 0.2 E9/L [facility] Eosinophils/100 WBC (Bld) 0.6 % Normal 0.0 - 8.0 % [facility] Eosinophils/Leukocyt es Auto (Bld) [Pure # fraction] 0.1 E9/L Normal 0.0 - 0.5 E9/L [facility] Lymphocytes/100 WBC (Bld) 36.8 % Normal 14.0 - 50.0 % [facility] Lymphocytes/Leukocyt es Auto (Bld) [Pure # fraction] 2.9 E9/L Normal 1.0 - 4.0 E9/L [facility] Monocytes/100 WBC (Bld) 8.7 % Normal 4.0 - 14.0 % [facility] Monocytes/Leukocytes Auto (Bld) [Pure # fraction] 0.7 E9/L Normal 0.2 - 1.0 E9/L [facility] Neutrophils/100 WBC (Bld) 53.4 % Normal 36.0 - 75.0 % [facility] Neutrophils/Leukocyt es Auto (Bld) [Pure # fraction] 4.2 E9/L Normal 2.0 - 7.5 E9/L [facility] HEMATOLOGYOrdered By: Isha Yates on 08-31-2021 Erythrocyte distribution width (RBC) [Ratio] 14.6 % High 10.9 - 14.2 % [facility] Hematocrit (Bld) [Volume fraction] 36.4 % Normal 34.0 - 46.0 % [facility] Hemoglobin (Bld) [Mass/Vol] 12.6 g/dL Normal 12.0 - 16.0 gm/dL [facility] MCH (RBC) [Entitic mass] 29.9 pg Normal 27.0 - 34.0 pg [facility] MCHC (RBC) [Mass/Vol] 34.6 g/dL Normal 31.4 - 36.0 gm/dL [facility] MCV (RBC) [Entitic vol] 86.6 fL Normal 80.0 - 100.0 fL [facility] Platelet mean volume (Bld) [Entitic vol] 8.2 fL Normal 6.4 - 10.8 fL [facility] Platelets (Bld) [#/Vol] 367.0 E9/L Normal 150.0 - 500.0 E9/L [facility] RBC (Bld) [#/Vol] 4.2 E12/L Low 4.3 - 5.9 E12/L [facility] WBC corrected for nucl RBC Auto (Bld) [#/Vol] 7.9 E9/L Normal 4.0 - 11.0 E9/L [facility] PREG QUANT HCGon 08-29-2021 HCG QUANT 374 mIU/mL Normal [facility] Comment on above: Performed By: #### P REGQNT ####[facility] [address] [address]Dr. Edward Gill HCG RANGE SEE BELOW Normal [facility] Comment on above: Result Comment: 5-50 0-1 WEEK 40-300 1-2 WEEKS 100-1,000 2-3 WEEKS 500-6,000 3-4 WEEKS 5,000-200,000 1-2 MONTHS 10,000-100,000 2-3 MONTHS 3,000-50,000 2ND TRIMESTER 1,000-50,000 3RD TRIMESTER Performed By: #### P REGQNT ####[facility] [address] [place], [place] [address]Dr. Edward Gill PREG QUANT HCGon 08-26-2021 HCG QUANT 99 mIU/mL Normal [facility] Comment on above: Performed By: #### H IV12 #### [facility] [address] [place] [address] Dr. Edward Gill HCG RANGE SEE BELOW Normal [facility] Comment on above: Result Comment: 5-50 0-1 WEEK 40-300 1-2 WEEKS 100-1,000 2-3 WEEKS 500-6,000 3-4 WEEKS 5,000-200,000 1-2 MONTHS 10,000-100,000 2-3 MONTHS 3,000-50,000 2ND TRIMESTER 1,000-50,000 3RD TRIMESTER Performed By: #### H IV12 #### [facility] [address] [place] [address] Dr. Edward Gill PREG QUANT HCGon 08-24-2021 HCG QUANT 37 mIU/mL Normal [facility] Comment on above: Performed By: #### P REGQNT ####[facility] [address] [place], [place] [address]LhLazara Gill HCG RANGE SEE BELOW Normal [facility] Comment on above: Result Comment: 5-50 0-1 WEEK 40-300 1-2 WEEKS 100-1,000 2-3 WEEKS 500-6,000 3-4 WEEKS 5,000-200,000 1-2 MONTHS 10,000-100,000 2-3 MONTHS 3,000-50,000 2ND TRIMESTER 1,000-50,000 3RD TRIMESTER Performed By: #### P REGQNT ####[facility] [address] [place], [place] [address]OpLazara Gill CHEMISTRYOrdered By: SYSTEM SYSTEM on 08-19-2021 Albumin [Mass/Vol] 4.5 g/dL Normal 3.3 - 5.0 gm/dL [facility] Albumin/Globulin [Mass ratio] 1.2 {ratio} Normal 1.1 - 2.2 [facility] ALP [Catalytic activity/Vol] 53 [iU]/d Normal 21 - 98 Int._Unit/L [facility] ALT No additional P-5'-P [Catalytic activity/Vol] 24 [iU]/d Normal 6 - 46 Int._Unit/L [facility] Anion gap [Moles/Vol] 13 mmol/L Normal 6 - 16 mEq/L [facility] AST [Catalytic activity/Vol] 20 [iU]/d Normal 5 - 43 Int._Unit/L [facility] Bilirubin [Mass/Vol] 0.6 mg/dL Normal 0.0 - 1 .1 mg/dL [facility] Calcium [Mass/Vol] 9.4 mg/dL Normal 8.9 - 11. 1 mg/dL [facility] Chloride [Moles/Vol] 97 mmol/L Low 101 - 1 11 mmol/L [facility] CO2 [Moles/Vol] 24 mmol/L Normal 21 - 31 mmol/L [facility] Creatinine [Mass/Vol] 0.8 mg/dL Normal 0.5 - 1.3 mg/dL [facility] GFR/1.73 sq M.predicted among blacks MDRD (S/P/Bld) [Vol rate/Area] mL/min/1.73 m2 Normal >=59mL/min/ 1.73 m2 [facility] Chem S GFR/1.73 sq M.predicted among non-blacks MDRD (S/P/Bld) [Vol rate/Area] mL/min/1.73 m2 Normal >=59mL/min/ 1.73 m2 [facility] Chem S Globulin (S) [Mass/Vol] 3.7 g/dL Normal 1.4 - 4.0 gm/dL [facility] Glucose [Mass/Vol] 74 mg/dL Normal 55 - 199 mg/dL [facility] Magnesium [Mass/Vol] 2.0 mg/dL Normal 1.3 - 2 .4 mg/dL [facility] Potassium [Moles/Vol] 3.5 mmol/L Normal 3.5 - 5.3 mmol/L [facility] Protein [Mass/Vol] 8.2 g/dL High 6.0 - 7.8 gm/dL [facility] Sodium [Moles/Vol] 130 mmol/L Low 135 - 145 mmol/L [facility] TSH Qn 4.56 m[IU]/L Normal 0.34 - 5.60 mcIU/mL [facility] Urea nitrogen [Mass/Vol] 7 mg/dL Normal 5 - 21 mg/dL [facility] Urea nitrogen/Creatinine [Mass ratio] 9 mg/mg Low 10 - 20 [facility] HEMATOLOGYOrdered By: SYSTEM SYSTEM on 08-19-2021 Basophils/100 WBC (Bld) 0.3 % Normal 0.0 - 2.0 % [facility] Basophils/Leukocytes Auto (Bld) [Pure # fraction] 0.0 E9/L Normal 0.0 - 0.2 E9/L [facility] Eosinophils/100 WBC (Bld) 0.5 % Normal 0.0 - 8.0 % [facility] Eosinophils/Leukocyt es Auto (Bld) [Pure # fraction] 0.0 E9/L Normal 0.0 - 0.5 E9/L [facility] Lymphocytes/100 WBC (Bld) 35.9 % Normal 14.0 - 50.0 % [facility] Lymphocytes/Leukocyt es Auto (Bld) [Pure # fraction] 3.2 E9/L Normal 1.0 - 4.0 E9/L [facility] Monocytes/100 WBC (Bld) 8.8 % Normal 4.0 - 14.0 % [facility] Monocytes/Leukocytes Auto (Bld) [Pure # fraction] 0.8 E9/L Normal 0.2 - 1.0 E9/L [facility] Neutrophils/100 WBC (Bld) 54.5 % Normal 36.0 - 75.0 % [facility] Neutrophils/Leukocyt es Auto (Bld) [Pure # fraction] 4.8 E9/L Normal 2.0 - 7.5 E9/L [facility] HEMATOLOGYOrdered By: Trena Castro on 08-19-2021 Erythrocyte distribution width (RBC) [Ratio] 14.1 % Normal 10.9 - 14.2 % [facility] Hematocrit (Bld) [Volume fraction] 38.5 % Normal 34.0 - 46.0 % [facility] Hemoglobin (Bld) [Mass/Vol] 13.1 g/dL Normal 12.0 - 16.0 gm/dL [facility] MCH (RBC) [Entitic mass] 29.4 pg Normal 27.0 - 34.0 pg [facility] MCHC (RBC) [Mass/Vol] 34.1 g/dL Normal 31.4 - 36.0 gm/dL [facility] MCV (RBC) [Entitic vol] 86.0 fL Normal 80.0 - 100.0 fL [facility] Platelet mean volume (Bld) [Entitic vol] 8.3 fL Normal 6.4 - 10.8 fL [facility] Platelets (Bld) [#/Vol] 334.0 E9/L Normal 150.0 - 500.0 E9/L [facility] RBC (Bld) [#/Vol] 4.5 E12/L Normal 4.3 - 5.9 E12/L [facility] WBC corrected for nucl RBC Auto (Bld) [#/Vol] 8.9 E9/L Normal 4.0 - 11.0 E9/L [facility] - Office Visiton 10-28 [place] - Office Visit Chief ComplaintComplains of: heavy bleeding 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 She is here with the complaint of heavy bleeding, ovarian cyst, discussion of hormonal options. Concerned about weight gainWent to the ER for rectal bleeding. Had a CT of the abdomen/pelvis with contrast. Normal uterus, small follicular ovarian cysts bilaterally. Dominant right ovarian cyst that is 2x2x2.5cmTakes Plavix for antiphospholipid syndrome (APS)Stroke/ TIA menses-monthly cycle, q 28-40 days, bleeds about 10-14 days. 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 Eyes: no eye pain, no vision problems and no dryness of the eyes. ENT: no hearing loss, no nosebleeds and no sinus congestion. Cardiovascular: no chest pain, no palpitations and no orthopnea. Respiratory: no shortness of breath, no cough and no wheezing. Gastrointestinal: no abdominal pain, no constipation, no nausea, no diarrhea and no vomiting. Genitourinary: no dysuria, no urinary incontinence, no vaginal dryness, no vaginal itching, no dyspareunia, no pelvic pain, no dysmenorrhea, no sexual problems, no change in urinary frequency, no vaginal discharge, no unexplained vaginal bleeding and no lesion/sore. Musculoskeletal: no back pain, no joint swelling and no leg edema. Integumentary: no rashes, no skin lesions, no nipple discharge, no breast pain and no breast lump. Neurological: no headache, no numbness and no dizziness. Psychiatric: no sleep disturbances, no anxiety and no depression. Endocrine: no hot flashes, no loss of hair and no hirsutism. Hematologic/Lymphatic: no swollen glands, no tendency for easy bleeding and no tendency for easy bruising. Surgical History History of Oral Surgery Tooth Extraction [place] Tooth Family History No pertinent family history Family history of cerebrovascular accident (CVA) (V17.1) (Z82.3) Family history of diabetes mellitus (V18.0) (Z83.3) Family history of cerebrovascular accident (CVA) (V17.1) (Z82.3) Family history of cerebrovascular accident (CVA) (V17.1) (Z82.3) Allergies No Known Drug Allergies Recorded By: Susie Salomon; 11/08/2017 4:19:42 PM Current Meds Ciprofloxacin HCl - 500 MG Oral Tablet;Therapy: [id number] to Recorded Dispense: 0 Days ; #: Sufficient Tablet; Refill: 0; BUBBA = N; Record; Last Updated By: Susie Salomon; 11/08/2017 4:19:42 PM Plavix 75 MG Oral Tablet;Therapy: [id number] to Recorded Dispense: 0 Days ; #: Sufficient Tablet; Refill: 0; BUBBA = N; Record; Last Updated By: Susie Salomon; 11/08/2017 4:19:42 PM Provera 10 MG Oral Tablet;Therapy: [id number] to Recorded Dispense: 0 Days ; #: Sufficient Tablet; Refill: 0; BUBBA = N; Record; Last Updated By: Susie Salomon; 11/08/2017 4:19:42 PM Vitals Vital Signs Recorded: [id number] 04:68GGCszflpdx244Lrwxlyfj x06Iohgtv0 ft 6 feYclrpn668 lb BMI Guabfiqjqk52.57BSA Calculated1.2KHG07Zaw9494W ain Scale6-7 Physical ExamConstitutional: Alert and in no acute distress. Well developed, well nourished. Head and Face: Head and face: Normal. Psychiatric: Alert and oriented x 3. Affect normal to patient baseline. Mood: Appropriate. Diagnoses/Problems Anemia (285.9) (D64.9) Asthma (493.90) (J45.909) Depression with anxiety (300.4) (F41.8) History of Oral Surgery Tooth Extraction [place] Tooth No pertinent family history : Mother Family history of diabetes mellitus (V18.0) (Z83.3) : Father Family history of cerebrovascular accident (CVA) (V17.1) (Z82.3) : Father, PaternalGrandmother, Paternal Grandfather Provider ImpressionsAbnormal menses-will continue on Provera but discussed the options of Paraguard IUD and Mirena IUDHistory of stroke, continue PlavixRight ovarian cyst, follow up ultrasound req given for 6 monthsRectal bleeding, likely hemorrhoids, follow up with GIDeclines STI testing todayWeight gain, offered a knot tier consult and she declined. Encouraged exercise. Signatures Electronically signed by : RICHARD Ulrich; Nov 12 2017 8:46PM EST (Author) Normal [facility] Antiphospholipid Abs IgG/IgM on 06-08-2017 Antiphospholipid Ab-IgG >200 Critically high 0-14 [facility] Comment on above: Result Comment: INTE RPRETIVE INFORMATION: High-Specificity Antiphospholipid Antibody,IgG14 GPL or less......[id number] 26 GPL.........Indeterminate Suggest repeat testing in 12 weeks27 GPL or greater...PositiveHigh-specificity antiphospholipid IgG and IgM antibodies are directedagainsta mixture of phosphatidylserine, phosphatidic acid, and beta-2glycoprotein 1antigens. These antibodies are more specific than cardiolipin IgG andIgMantibodies in the diagnosis of antiphospholipid syndrome (APS). Antiphospholipid Ab-IgM 0 MPL Normal 0-14 [facility] Comment on above: Result Comment: INTE RPRETIVE INFORMATION: High-Specificity Antiphospholipid Antibody,IgM14 MPL or less......Mllizigs95 37 MPL.........Indeterminate Suggest repeat testing in 12 weeks38 MPL or greater...PositiveHigh-specificity antiphospholipid IgG and IgM antibodies are directedagainsta mixture of phosphatidylserine, phosphatidic acid, and beta-2glycoprotein 1antigens. These antibodies are more specific than cardiolipin IgG andIgMantibodies in the diagnosis of antiphospholipid syndrome (APS).Performed by [facility],[address] [place] [id number] mpv[employer], Zhang Bledsoe MD - Lab. Director Histone Antibody, IgGon Histone Ab, IgG 0.5 Units Normal 0.0-0.9 [facility] Comment on above: Result Comment: INTE RPRETIVE INFORMATION: Histone Ab, IgG 0.9 Units or less ............ Negative 1.0 - 1.5 Units .............. Weak Positive 1.6 - 2.5 Units .............. Moderate Positive 2.6 Units or greater ......... Strong PositivePerformed by [facility],[address] [place] [address] knv[employer], Zhang Bledsoe MD - Lab. Director Cardiolipin Antibodies, IgA, IgG, IgMon 06-06-2017 Cardiolipin Ab IgA 2 APL Normal 0-11 [facility] Comment on above: Result Comment: INTE RPRETIVE INFORMATION: Cardiolipin Antibodies, IgA0-11 APL: [id number] APL: Gclubgtrwrelp05-54 APL: Low to Moderately Ignaymuy18 APL or above: High PositivePerformed by [facility],[address] [place] [address] yhz[employer], Zhang Bledsoe MD - Lab. Director Cardiolipin Ab IgG 84 GPL Critically high 0-14 [facility] Comment on above: Result Comment: INTE RPRETIVE INFORMATION: Anti-Cardiolipin IgG Ab0-14 GPL: [id number] GPL: [id number] GPL: Low to Moderately Gxuzwyip85 GPL or above: High PositiveThe persistent presence of IgG and/or IgM cardiolipin (CL) antibodiesinmoderate or high levels (greater than 40 GPL and/or greater than 40MPLunits or greater than 99th percentile) is a laboratory criterion forthediagnosis of antiphospholipid syndrome (APS). Persistence is defined asmoderate or high levels of IgG and/or IgM CL antibodies detected in twoormore specimens drawn at least 12 weeks apart (J Throm Haemost.2006;4:295-306). Lower positive levels of IgG and/or IgM CL antibodies(abovecutoff but less than 40 GPL and/or less than 40 MPL units) may occur inpatients with the clinical symptoms of APS; therefore, the actualsignificance of these levels is undefined. Results should not be usedalonefor diagnosis and must be interpreted in light of APS-specific clinicalmanifestations and/or other criteria phospholipid antibody tests. Cardiolipin Ab IgM 5 MPL Normal 0-12 [facility] Comment on above: Result Comment: INTE RPRETIVE INFORMATION: Anti-Cardiolipin IgM0-12 MPL: Eambayan35-51 MPL: Hfawatcvtgglp36-19 MPL: Low to Moderately Etqffcdl24 MPL or above: High PositiveThe persistent presence of IgG and/or IgM cardiolipin (CL) antibodiesinmoderate or high levels (greater than 40 GPL and/or greater than 40 MPLunitsor greater than 99th percentile) is a laboratory criterion for thediagnosisof antiphospholipid syndrome (APS). Persistence is defined as moderateorhigh levels of IgG and/or IgM CL antibodies detected in two or morespecimens drawn at least 12 weeks apart (J Throm Haemost.2006;4:295-306).Lower positive levels of IgG and/or IgM CL antibodies (above cutoff butlessthan 40 GPL and/or less than 40 MPL units) may occur in patients withtheclinical symptoms of APS; therefore, the actual significance of theselevelsis undefined. Results should not be used alone for diagnosis and mustbeinterpreted in light of APS-specific clinical manifestations and/orothercriteria phospholipid antibody tests. Centromere Ab, IgGon 018 Centromere Ab, IgG 0 AU/mL Normal 0-40 [facility] Comment on above: Result Comment: INTE RPRETIVE INFORMATION: Centromere Ab, IgG 29 AU/mL or Less ............. Negative 30 - 40 AU/mL ................ Equivocal 41 AU/mL or Greater .......... PositiveWhen detected by this multiplex bead assay, the presence of centromereantibodies is mainly associated with CREST syndrome, a variant ofsystemicsclerosis (SSc). These antibodies target the centromere B, a dominantantigenof the centromeric complex associated with the centromere patternobserved inantinuclear antibody (NASEEM) testing by IFA. Centromere antibodies mayalso beseen in a varying percentage of patients with other autoimmunediseases,including diffuse cutaneous SSc, Raynaud syndrome, interstitialpulmonaryfibrosis, autoimmune liver disease, systemic lupus erythematosus (SLE)andrheumatoid arthritis (RA).A negative result indicates no detectable IgG antibodies to centromereB. Ifthe result is negative but clinical suspicion for SSc is strong,considertesting for NASEEM by IFA along with other antibodies associated with SSc,including Scl-70, U3-HR ASSISTANT, PM/Scl, or Th/To.Performed by [facility],[address] [place] [address] vdf[employer], Zhang Bledsoe MD - Lab. Director Antiphospholipid Abs IgG/IgM on 05-29-2017 Antiphospholipid Ab-IgG 196 GPL Critically high 0-14 [facility] Comment on above: Result Comment: INTE RPRETIVE INFORMATION: High-Specificity Antiphospholipid Antibody,IgG14 GPL or less......Rioavjbf37 26 GPL.........Indeterminate Suggest repeat testing in 12 weeks27 GPL or greater...PositiveHigh-specificity antiphospholipid IgG and IgM antibodies are directedagainsta mixture of phosphatidylserine, phosphatidic acid, and beta-2glycoprotein 1antigens. These antibodies are more specific than cardiolipin IgG andIgMantibodies in the diagnosis of antiphospholipid syndrome (APS). Antiphospholipid Ab-IgM 6 MPL Normal 0-14 [facility] Comment on above: Result Comment: INTE RPRETIVE INFORMATION: High-Specificity Antiphospholipid Antibody,IgM14 MPL or less......Tavpgten43 37 MPL.........Indeterminate Suggest repeat testing in 12 weeks38 MPL or greater...PositiveHigh-specificity antiphospholipid IgG and IgM antibodies are directedagainsta mixture of phosphatidylserine, phosphatidic acid, and beta-2glycoprotein 1antigens. These antibodies are more specific than cardiolipin IgG andIgMantibodies in the diagnosis of antiphospholipid syndrome (APS).Performed by [facility],[address] [facility] [place] [address] zlv[employer], Zhang Bledsoe MD - Lab. Director [facility] Miscellaneous test 1on 05-28-2017 Miscellaneous Test 1 SEE NOTE Normal [facility] Comment on above: Result Comment: Test name Result Flag Units RefIntvl Double-Stranded DNA (dsDNA) Ab IgG ALEX None Detected NoneDetectedINTERPRETIVE INFORMATION: Double-Stranded DNA (dsDNA) Antibody, IgG byELISAPositivity for anti-double stranded DNA (anti-dsDNA) IgG antibody is adiagnostic criterion of systemic lupus erythematosus (SLE). Specimensareinitially screened by enzyme-linked immunosorbent assay (ALEX). AllELISAresults reported as detected (positive) are confirmed by a highlyspecificIFA titer (Crithidia luciliae indirect fluorescent test [MAGEN]). Somepatients with early or inactive SLE may be positive for anti-dsDNA IgGbyELISA but negative by MAGEN. If the patient is negative by MAGEN butpositiveby ALEX and clinical suspicion remains, consider antinuclear antibody(NASEEM)testing by IFA. Additional information and recommendations for testingmay befound [email or web address].Performed by [employer],[address] [facility] [place] [address] eqf.[employer], Zhang Bledsoe MD - Lab. Director Cardiolipin Antibodies, IgA, IgG, IgMon 05-28-2017 Cardiolipin Ab IgA 0 APL Normal 0-11 [facility] Comment on above: Result Comment: INTE RPRETIVE INFORMATION: Cardiolipin Antibodies, IgA0-11 APL: [id number] APL: [id number] APL: Low to Moderately [id number] APL or above: High PositivePerformed by [employer],[address] [place] [address] ebk.[employer], Zhang Bledsoe MD - Lab. Director Cardiolipin Ab IgG 111 GPL Critically high 0-14 [facility] Comment on above: Result Comment: INTE RPRETIVE INFORMATION: Anti-Cardiolipin IgG Ab0-14 GPL: [id number] GPL: [id number] GPL: Low to Moderately [id number] GPL or above: High PositiveThe persistent presence of IgG and/or IgM cardiolipin (CL) antibodiesinmoderate or high levels (greater than 40 GPL and/or greater than 40MPLunits or greater than 99th percentile) is a laboratory criterion forthediagnosis of antiphospholipid syndrome (APS). Persistence is defined asmoderate or high levels of IgG and/or IgM CL antibodies detected in twoormore specimens drawn at least 12 weeks apart (J Throm Haemost.2006;4:295-306). Lower positive levels of IgG and/or IgM CL antibodies(abovecutoff but less than 40 GPL and/or less than 40 MPL units) may occur inpatients with the clinical symptoms of APS; therefore, the actualsignificance of these levels is undefined. Results should not be usedalonefor diagnosis and must be interpreted in light of APS-specific clinicalmanifestations and/or other criteria phospholipid antibody tests. Cardiolipin Ab IgM 10 MPL Normal 0-12 [facility] Comment on above: Result Comment: INTE RPRETIVE INFORMATION: Anti-Cardiolipin IgM0-12 MPL: [id number] MPL: [id number] MPL: Low to Moderately Rrgksxdu71 MPL or above: High PositiveThe persistent presence of IgG and/or IgM cardiolipin (CL) antibodiesinmoderate or high levels (greater than 40 GPL and/or greater than 40 MPLunitsor greater than 99th percentile) is a laboratory criterion for thediagnosisof antiphospholipid syndrome (APS). Persistence is defined as moderateorhigh levels of IgG and/or IgM CL antibodies detected in two or morespecimens drawn at least 12 weeks apart (J Throm Haemost.2006;4:295-306).Lower positive levels of IgG and/or IgM CL antibodies (above cutoff butlessthan 40 GPL and/or less than 40 MPL units) may occur in patients withtheclinical symptoms of APS; therefore, the actual significance of theselevelsis undefined. Results should not be used alone for diagnosis and mustbeinterpreted in light of APS-specific clinical manifestations and/orothercriteria phospholipid antibody tests. Jennifer-Simpson Virus by PCRon 05-28-2017 Jennifer Simpson Virus by PCR Not Detected Normal [facility] Comment on above: Result Comment: NOT DETECTED - A negative result does not rule out thepresence of PCR inhibitors in the patient specimen or assayspecific nucleic acid in concentrations below the level ofdetection by the assay.INTERPRETIVE INFORMATION: Jennifer Simpson Virus by PCRTest developed and characteristics determined by [employer]. SeeCompliance Statement A: [employer]/CSPerformed by [employer],[address] [place] [address] sqw.[employer], Zhang Bledsoe MD - Lab. Director Jennifer Simpson Virus Source CSF Normal [facility] Oligoclonal Band Profileon 0 05-28-2017 Albumin 3840 mg/dL Normal 2508-1833 [facility] Albumin 5.2 ratio Normal 0.0-9.0 [facility] Albumin, CSF 20 mg/dL Normal 0-35 [facility] CSF IgG Synthesis Rate <0.0 Normal <=8.0 [facility] CSF Oligoclonal Bands Negative Normal Negative [facility] CSF Oligoclonal Bands Number 0 Bands Normal 0-1 [facility] Globulin 1060 mg/dL Normal 768-1632 [facility] Comment on above: Result Comment: REFE RENCE INTERVAL: Immunoglobulin GAccess complete set of age- and/or gender-specific reference intervalsforthis test in the [employer] [facility] Test Directory ([employer]). IgG Index 0.45 ratio Normal 0.28-0.66 [facility] Immunoglobulin G CSF 2.5 mg/dL Normal 0.0-6.0 [facility] INR Coag RelTime (Bld) 0.12 {INR} Normal 0.09-0.25 [facility] Interpretation See Note Normal [facility] Comment on above: Result Comment: Isoe lectric focusing/immunofixation reveals no oligoclonal bands ineitherthe CSF or the serum. This is considered to be a negative result foroligoclonal bands. Approximately 5 percent of patients with clinicallydefinitive multiple sclerosis will have a negative result.Performed by [employer],[address] [place] [address] dfa.[employer], Zhang Bledsoe MD - Lab. Director Myelin Basic Protein, CSFon 05-27-2017 Myelin Basic Protein 1.82 ng/mL Normal 0.00-5.50 [facility] Comment on above: Result Comment: INTE RPRETIVE INFORMATION: Myelin Basic ProteinTest developed and characteristics determined by [employer]. SeeCompliance Statement D: [employer]/CSPerformed by [employer],[address] [facility] [place] [address] mxp.[employer], Zhang Bledsoe MD - Lab. Director [employer] Miscellaneous test 1on 05-26-2017 Whopper Prompt [id number] Normal [facility] Comment on above: Result Comment: Fuentes ected result; [place] [id number] on 05/25/2017 at 13:14 by V/AUT [employer] Miscellaneous test 1on 05-25-2017 Whopper Prompt [id number] Normal [facility] Comment on above: Result Comment: DS D NA CSF Cell Counton 05-25-2017 CSF no diff see below Normal [facility] Comment on above: Result Comment: Diff erential not performed -Total Nucleated cells CSF Appearance Clear Normal [facility] CSF Color Colorless Normal [facility] CSF Tube Number Tube 4 Normal [facility] Fluid Clot Evaluation see below Normal [facility] Comment on above: Result Comment: No C lots Seen Total Nucleated Cells 0 K/uL Normal 0-8 [facility] Total Red Blood Cells 0 K/uL Normal [facility] CSF Glucoseon 05-25-2017 CSF Glucose 54 mg/dL Normal 50-70 [facility] CSF Proteinon 05-25-2017 CSF Protein 41 mg/dL Normal 15-45 [facility] Creatine Kinaseon 05-25-2017 Creatine kinase (CK) 71 U/L Normal 0-170 [facility] Culture, CSFon 05-25-2017 Culture, CSF OR DERED BY: VERNA MONGE: CSF (Spinal Fluid) CSF COLLECTED: 05/25/17 13:25ANTIBIOTICS AT AMARILYS.: RECEIVED : 05/25/17 13:25Gram Stain Direct FINAL 05/25/17 15:30 No WBC's, No organisms seenCulture, CSF FINAL 05/28/17 09:04 No growth at 72 hours Normal [facility] FL LUMBAR PUNCTURE DIAGon FL LUMBAR PUNCTURE DIAG FL LUMBAR PUNCTURE DIAG : 05/25/2017CLINICAL HISTORY: G35 Multiple sclerosis (HCC) ICD10.COMPARISON: None available.PROCEDURE: Informed consent was obtained.Sterile technique, local lidocaine anesthesia and fluoroscopic guidance were used to place a 22-gauge spinal needle into the subarachnoid space between the L2-3 interspace.Approximately 10 mL of clear CSF was aspirated into 4 separate containers and sent for analysis as requested.The patient tolerated the procedure without evidence of immediate complication, and was monitored in the radiology department for approximately 4 hours without event and subsequently discharged home in stable condition with the usual instructions.IMPRESSION: FLUOROSCOPIC-GUIDED LUMBAR PUNCTURE.Interpreted by:NIKITA Mezaigned by:Humera Covarrubias MD05/25/17inal result Normal [facility] Homocysteineon 05-25-2017 Homocysteine 9.1 umol/L Normal 0.0-15.0 [facility] Partial Thromboplastin Timeo n 05-25-2017 aPTT 31.7 s Normal 21.6-35.4 [facility] Comment on above: Result Comment: Hepa rin Therapeutic Range: 38.8 - 54.6 seconds. Prothrombin Timeon 8 INR Coag RelTime (PPP) 1.0 {INR} Normal [facility] Comment on above: Result Comment: Rayo mmended INR therapeutic ranges for oral anticoagulanttherapyProphylaxis/treatment of: INR Venous Thrombosis, Pulmonary Embolism 2.0-3Prevention of Systemic Embolism from: Atrial Fibrillation 2.0-3.0 Myocardial Infarction 2.0-3.0 Mechanical Prosthetics Heart Valves 2.5-3.5 Recurrent Systemic Embolism 2.5-3.5Guidelines for patients with coagulopathy, e.g. liver disease:Use the Protime resulted in seconds. Mild 12.9-17.0 sec Moderate 17.1-22.6 sec Severe G.T. 22.6 sec Prothrombin time (PT) Coag time (PPP) 10.7 s Normal 8.1-13.7 [facility] HIV-1,-2 w/Reflex to HIV-1 W estern [place] 12-31-2016 HIV-1 and HIV-2 Abs Negative Normal Negative [facility] Comment on above: Result Comment: Base d on the non-reactive anti-HIV (BRENDEN) screen, the HIV Western blotis notindicated and therefore not performed.INTERPRETIVE INFORMATION: HIV-1,-2 w/Reflex to HIV-1 Western BlotThis assay should not be used for blood donor screening, associatedre-entryprotocols, or for screening Human Cells, Tissues and Cellular andTissue-Based Products (HCT/P).Performed by [employer],[address] [place] [id number] ckb.[employer], Zhang Bledsoe MD - Lab. Director Doug 12-31-2016 Reagin antibody presence Non-reactive Normal Non-reacti [facility] C-Reactive Proteinon 017 C reactive protein (CRP) 2.8 mg/L Normal 0.0-5.0 [facility] CBC With Platelet No Differe ntialon 12-29-2016 Erythrocyte distribution width Auto Ratio (RBC) 13.2 % Normal 11.5-14.5 [facility] Erythrocytes (RBC) 4.33 10*6/uL Normal 4.20-5.40 [facility] Hematocrit (HCT) 38.6 % Normal 37.0-47.0 [facility] Hemoglobin mass conc (Bld) 12.9 g/dL Normal 12.0-16.0 [facility] MCH 29.9 pg Normal 27.0-31.3 [facility] MCHC mass conc (RBC) 33.5 % Normal 33.0-37.0 [facility] MCV 89.2 fL Normal 82.0-100.0 [facility] Platelets 363 10*3/uL Normal 130-400 [facility] WBC (Leukocytes) 7.4 10*3/uL Normal 4.8-10.8 [facility] Comprehensive Metabolic Pane shayy 12-29-2016 Alanine aminotransferase (ALT) 64 U/L Critically high 0-33 [facility] Albumin 4.9 g/dL Normal 3.9-4.9 [facility] Alkaline phosphatase (ALP) 82 U/L Normal 40-130 [facility] Anion gap 16 mmol/L Critically high 7-13 [facility] Aspartate aminotransferase (AST) 30 U/L Normal 0-35 [facility] Bilirubin (total) 0.3 mg/dL Normal 0.0-1.2 [facility] Calcium 9.3 mg/dL Normal 8.6-10.2 [facility] Chloride 90 mmol/L Low 98-107 [facility] CO2 24 mmol/L Normal 22-29 [facility] Creatinine 0.53 mg/dL Normal 0.50-0.90 [facility] eGFR (black) mL/min/{1.73_m2} Normal >60 [facility] Comment on above: Result Comment: >60 mL/min/1.73m2 EGFR, calc. for ages 18 and older using theMDRD formula (not corrected for weight), is valid for stablerenal function. eGFR (MDRD) mL/min/{1.73_m2} Normal >60 [facility] Comment on above: Result Comment: >60 mL/min/1.73m2 EGFR, calc. for ages 18 and older using theMDRD formula (not corrected for weight), is valid for stablerenal function. Globulin 2.8 g/dL Normal 2.3-3.5 [facility] Glucose mass conc 72 mg/dL Low 74-109 [facility] Potassium molar conc 4.5 mmol/L Normal 3.5-5.1 [facility] Protein 7.7 g/dL Normal 6.4-8.1 [facility] Sodium 130 mmol/L Low 132-144 [facility] Urea nitrogen 6 mg/dL Normal 6-20 [facility] Sedimentation Rateon 017 Sedimentation Rate 11 mm Normal 0-20 [facility] TSH w/out Reflexon 7 Thyroid stimulating hormone (TSH) 3.030 uIU/mL Normal 0.270-4.20 [facility] Thyroxine Freeon 12-29-2016 Thyroxine Free 1.19 ng/dL Normal 0.93-1.70 [facility] VITAMIN Don 12-29-2016 VITAMIN D 51.1 ng/mL Normal 30.0-100.0 [facility] Comment on above: Result Comment: (30- 100 ng/mL) Optimum LevelThis assay accurately quantifies the sum of vitamin D3, 25-Hydroxy andvitamin D2, 25-Hyroxy. Vitamin B12 and Folateon Cobalamins (Vitamin B12) 1860 pg/mL Critically high 211-946 [facility] Folate 19.6 ng/mL Normal 7.3-26.1 [facility] Comment on above: Result Comment: As o f 15, the methodology has changed. Results fromthis methodology should not be compared with results fromprevious methodology. Vital Signs Date Time Vital Sign Value Performing Clinician Facility 04-04-2024 10:57-0500 Body mass index (BMI) [Ratio] 35.85 kg/m2 [facility] 04-04-2024 10:57-0500 Body weight 100.75 kg [facility] 02-05-2024 13:29-0400 Blood Pressure Location [employer] [facility] 02-05-2024 13:29-0400 Body temperature 98.06 [degF] Evans Ziebel [facility] 02-05-2024 13:29-0400 Diastolic blood pressure 70 mm[Hg] Evans Ziebel [facility] 02-05-2024 13:29-0400 Heart rate 76 /min Evans Ziebel [facility] 02-05-2024 13:29-0400 Respiratory rate 16 /min Evans Ziebel [facility] 02-05-2024 13:29-0400 SaO2% (BldA) [Mass fraction] 99 % Evans Ziebel [facility] 02-05-2024 13:29-0400 Systolic blood pressure 122 mm[Hg] Evans Ziebel [facility] 02-02-2024 14:39-0400 Blood Pressure Location Anni Saemella [facility] 02-02-2024 14:39-0400 Body temperature 98.06 [degF] Anni Gudimella [facility] 02-02-2024 14:39-0400 Diastolic blood pressure 84 mm[Hg] Anni Gudimella [facility] 02-02-2024 14:39-0400 Heart rate 98 /min Anni Gudimella [facility] 02-02-2024 14:39-0400 SaO2% (BldA) [Mass fraction] 99 % Anni Gudimella [facility] 02-02-2024 14:39-0400 Systolic blood pressure 121 mm[Hg] Anni Gudimella [facility] 01-02-2024 13:45-0400 Body height 167.7 cm Salvador Calix MD Work Phone: [facility] 01-02-2024 13:45-0400 Body mass index (BMI) [Ratio] 36.52 kg/m2 Salvador Calix MD Work Phone: [facility] 01-02-2024 13:45-0400 Body temperature 97.11 [degF] Salvador Calix MD Work Phone: [facility] 01-02-2024 13:45-0400 Body weight 102.7 kg Salvador Calix MD Work Phone: [facility] 01-02-2024 13:45-0400 Diastolic blood pressure 81 mm[Hg] Salvador Calix MD Work Phone: [facility] 01-02-2024 13:45-0400 Heart rate 91 /min Salvador Calix MD Work Phone: [facility] 01-02-2024 13:45-0400 Respiratory rate 16 /min Salvador Calix MD Work Phone: [facility] 01-02-2024 13:45-0400 SaO2% (BldA) [Mass fraction] 100 % Salvador Calix MD Work Phone: [facility] 01-02-2024 13:45-0400 Systolic blood pressure 128 mm[Hg] Salvador Calix MD Work Phone: [facility] 11-29-2023 13:40-0400 Body temperature 97.7 [degF] Chair [place] Work Phone: [facility] 11-29-2023 13:40-0400 Diastolic blood pressure 79 mm[Hg] Chair [place] Work Phone: [facility] 11-29-2023 13:40-0400 Heart rate 75 /min Chair [place] Work Phone: [facility] 11-29-2023 13:40-0400 Respiratory rate 16 /min Chair [place] Work Phone: [facility] 11-29-2023 13:40-0400 SaO2% (BldA) [Mass fraction] 99 % Chair González Work Phone: [facility] 11-29-2023 13:40-0400 Systolic blood pressure 114 mm[Hg] Chair [place] Work Phone: [facility] 11-22-2023 14:00-0400 Body temperature 98.2 [degF] Chair González Work Phone: [facility] 11-22-2023 14:00-0400 Diastolic blood pressure 75 mm[Hg] Chair [place] Work Phone: [facility] 11-22-2023 14:00-0400 Heart rate 79 /min Chair González Work Phone: [facility] 11-22-2023 14:00-0400 Respiratory rate 16 /min Chair [place] Work Phone: [facility] 11-22-2023 14:00-0400 SaO2% (BldA) [Mass fraction] 99 % Chair [place] Work Phone: [facility] 11-22-2023 14:00-0400 Systolic blood pressure 111 mm[Hg] Chair [place] Work Phone: [facility] 11-15-2023 14:08-0400 Diastolic blood pressure 84 mm[Hg] Chair González Work Phone: [facility] 11-15-2023 14:08-0400 Heart rate 85 /min Chair González Work Phone: [facility] 11-15-2023 14:08-0400 Respiratory rate 18 /min Chair [place] Work Phone: [facility] 11-15-2023 14:08-0400 SaO2% (BldA) [Mass fraction] 96 % Chair [place] Work Phone: [facility] 11-15-2023 14:08-0400 Systolic blood pressure 129 mm[Hg] Chair González Work Phone: [facility] 11-09-2023 14:44-0400 Blood Pressure Location Monica Saba [facility] 11-09-2023 14:44-0400 Body temperature 97.34 [degF] Monica Saba [facility] 11-09-2023 14:44-0400 Diastolic blood pressure 74 mm[Hg] Monica Saba [facility] 11-09-2023 14:44-0400 Heart rate 85 /min Monica Saba [facility] 11-09-2023 14:44-0400 Respiratory rate 16 /min Monica Saba [facility] 11-09-2023 14:44-0400 SaO2% (BldA) [Mass fraction] 99 % Monica Saba [facility] 11-09-2023 14:44-0400 Systolic blood pressure 122 mm[Hg] Monica Saba [facility] 10-23-2023 16:48-0400 Blood Pressure Location Lourdes Garber [facility] 10-23-2023 16:48-0400 Body temperature 97.52 [degF] Lourdes Garber [facility] 10-23-2023 16:48-0400 Diastolic blood pressure 60 mm[Hg] Lourdes Garber [facility] 10-23-2023 16:48-0400 Heart rate 86 /min Lourdes Garber [facility] 10-23-2023 16:48-0400 SaO2% (BldA) [Mass fraction] 99 % Lourdes Garber [facility] 10-23-2023 16:48-0400 Systolic blood pressure 122 mm[Hg] Lourdes Garber [facility] 09-28-2023 21:17-0400 Body temperature 98.06 [degF] Benny Uribe [facility] 09-28-2023 21:17-0400 Diastolic blood pressure 68 mm[Hg] Benny Uribe [facility] 09-28-2023 21:17-0400 Heart rate 67 /min Benny Uribe [facility] 09-28-2023 21:17-0400 Mean blood pressure 84 mm[Hg] Benny Uribe [facility] 09-28-2023 21:17-0400 SaO2% (BldA) [Mass fraction] 95 % Benny Rony [facility] 09-28-2023 21:17-0400 Systolic blood pressure 117 mm[Hg] Benny Rony [facility] 09-28-2023 20:00-0400 Diastolic blood pressure 75 mm[Hg] Benny Rony [facility] 09-28-2023 20:00-0400 Heart rate 78 /min Benny Rony [facility] 09-28-2023 20:00-0400 Mean blood pressure 95 mm[Hg] Benny Rony [facility] 09-28-2023 20:00-0400 Respiratory rate 20 /min Benny Rony [facility] 09-28-2023 20:00-0400 Systolic blood pressure 134 mm[Hg] Benny Rony [facility] 09-28-2023 19:30-0400 Diastolic blood pressure 85 mm[Hg] Benny Rony [facility] 09-28-2023 19:30-0400 Heart rate 80 /min Benny Rony [facility] 09-28-2023 19:30-0400 Mean blood pressure 101 mm[Hg] Benny Rony [facility] 09-28-2023 19:30-0400 Respiratory rate 18 /min Benny Rony [facility] 09-28-2023 19:30-0400 SaO2% (BldA) [Mass fraction] 100 % Benny Rony [facility] 09-28-2023 19:30-0400 Systolic blood pressure 132 mm[Hg] Benny Uribe [facility] 09-28-2023 19:00-0400 Respiratory rate 17 /min Benny Uribe [facility] 09-28-2023 18:32-0400 Body temperature 98.42 [degF] Benny Uribe [facility] 09-28-2023 18:32-0400 Heart rate 69 /min Benny Uribe [facility] 09-28-2023 17:46-0400 Diastolic blood pressure 90 mm[Hg] JANET ROBERTSONTIZ [facility] 09-28-2023 17:46-0400 Mean blood pressure 109 mm[Hg] JANET DUNHAM [facility] 09-28-2023 17:46-0400 Systolic blood pressure 148 mm[Hg] JANET DUNHAM [facility] 09-28-2023 17:40-0400 Blood Pressure Location JANET DUNHAM [facility] 09-28-2023 17:40-0400 Body temperature 97.88 [degF] JANET DUNHAM [facility] 09-28-2023 17:40-0400 Diastolic blood pressure 70 mm[Hg] JANET DUNHAM [facility] 09-28-2023 17:40-0400 Heart rate 79 /min JANET DUNHAM [facility] 09-28-2023 17:40-0400 SaO2% (BldA) [Mass fraction] 97 % JANET DUNHAM [facility] 09-28-2023 17:40-0400 Systolic blood pressure 150 mm[Hg] JANET DUNHAM [facility] 08-03-2023 11:42-0400 Blood Pressure Location Evans CASAS [facility] 08-03-2023 11:42-0400 Body temperature 98.06 [degF] Evans KAPLE [facility] 08-03-2023 11:42-0400 Diastolic blood pressure 80 mm[Hg] Evans KAPLE [facility] 08-03-2023 11:42-0400 Heart rate 72 /min Evans STYLESLE [facility] 08-03-2023 11:42-0400 Respiratory rate 16 /min Evans STYLESLE [facility] 08-03-2023 11:42-0400 SaO2% (BldA) [Mass fraction] 99 % Evans KAPLE [facility] 08-03-2023 11:42-0400 Systolic blood pressure 120 mm[Hg] Evans KAPLE [facility] 06-15-2023 14:05-0500 Body height 167.7 cm Salvador Calix MD Work Phone: [facility] 06-15-2023 14:05-0500 Body temperature 97.39 [degF] Salvador Calix MD Work Phone: [facility] 06-15-2023 14:05-0500 Body weight 108.1 kg Salvador Calix MD Work Phone: [facility] 06-15-2023 14:05-0500 Diastolic blood pressure 75 mm[Hg] Salvador Calix MD Work Phone: [facility] 06-15-2023 14:05-0500 Heart rate 87 /min Salvador Calix MD Work Phone: [facility] 06-15-2023 14:05-0500 Respiratory rate 16 /min Salvador Calix MD Work Phone: [facility] 06-15-2023 14:05-0500 SaO2% (BldA) [Mass fraction] 95 % Salvador Calix MD Work Phone: [facility] 06-15-2023 14:05-0500 Systolic blood pressure 147 mm[Hg] Salvador Calix MD Work Phone: [facility] 05-25-2023 11:11-0500 Blood Pressure Location Evans KAPLE [facility] 05-25-2023 11:11-0500 Body temperature 97.7 [degF] Evans KAPLE [facility] 05-25-2023 11:11-0500 Diastolic blood pressure 70 mm[Hg] Evans KAPLE [facility] 05-25-2023 11:11-0500 Heart rate 76 /min Evans KAPLE [facility] 05-25-2023 11:11-0500 Respiratory rate 18 /min Evans KAPLE [facility] 05-25-2023 11:11-0500 SaO2% (BldA) [Mass fraction] 98 % Evans KAPLE [facility] 05-25-2023 11:11-0500 Systolic blood pressure 118 mm[Hg] Evans KAPLE [facility] 02-15-2023 09:41-0400 Blood Pressure Location Evans KAPLE [facility] 02-15-2023 09:41-0400 Body temperature 98.42 [degF] Evans KAPLE [facility] 02-15-2023 09:41-0400 Diastolic blood pressure 74 mm[Hg] Evans KAPLE [facility] 02-15-2023 09:41-0400 Heart rate 80 /min Evans KAPLE [facility] 02-15-2023 09:41-0400 Respiratory rate 18 /min Evans KAPLE [facility] 02-15-2023 09:41-0400 SaO2% (BldA) [Mass fraction] 98 % Evans KAPLE [facility] 02-15-2023 09:41-0400 Systolic blood pressure 122 mm[Hg] Evans KAPLE [facility] 10-20-2022 09:44-0400 Blood Pressure Location Evans KAPLE [facility] 10-20-2022 09:44-0400 Body temperature 98.24 [degF] Evans KAPLE [facility] 10-20-2022 09:44-0400 Diastolic blood pressure 81 mm[Hg] Evans KAPLE [facility] 10-20-2022 09:44-0400 Heart rate 88 /min Evans KAPLE [facility] 10-20-2022 09:44-0400 Respiratory rate 18 /min Evans KAPLE [facility] 10-20-2022 09:44-0400 SaO2% (BldA) [Mass fraction] 98 % Evans KAPLE [facility] 10-20-2022 09:44-0400 Systolic blood pressure 130 mm[Hg] Evans KAPLE [facility] 07-27-2022 13:18-0400 Body height 167.7 cm Salvador Calix MD Work Phone: [facility] 07-27-2022 13:18-0400 Body temperature 97.5 [degF] Salvador Calix MD Work Phone: [facility] 07-27-2022 13:18-0400 Body weight 107.78 kg Salvador Calix MD Work Phone: [facility] 07-27-2022 13:18-0400 Diastolic blood pressure 79 mm[Hg] Salvador Calix MD Work Phone: [facility] 07-27-2022 13:18-0400 Heart rate 76 /min Salvador Calix MD Work Phone: [facility] 07-27-2022 13:18-0400 Respiratory rate 16 /min Salvador Calix MD Work Phone: [facility] 07-27-2022 13:18-0400 SaO2% (BldA) [Mass fraction] 97 % Salvador Calix MD Work Phone: [facility] 07-27-2022 13:18-0400 Systolic blood pressure 136 mm[Hg] Salvador Calix MD Work Phone: [facility] 04-20-2022 13:45-0500 Body temperature 98.71 [degF] Chair [place] Work Phone: [facility] 04-20-2022 13:45-0500 Diastolic blood pressure 66 mm[Hg] Chair [place] Work Phone: [facility] 04-20-2022 13:45-0500 Heart rate 85 /min Chair González Work Phone: [facility] 04-20-2022 13:45-0500 SaO2% (BldA) [Mass fraction] 97 % Chair González Work Phone: [facility] 04-20-2022 13:45-0500 Systolic blood pressure 120 mm[Hg] Chair González Work Phone: [facility] 04-05-2022 16:27-0500 Diastolic blood pressure 65 mm[Hg] Chair [place] Work Phone: [facility] 04-05-2022 16:27-0500 Heart rate 84 /min Chair [place] Work Phone: [facility] 04-05-2022 16:27-0500 Respiratory rate 18 /min Chair González Work Phone: [facility] 04-05-2022 16:27-0500 SaO2% (BldA) [Mass fraction] 96 % Chair [place] Work Phone: [facility] 04-05-2022 16:27-0500 Systolic blood pressure 119 mm[Hg] Chair [place] Work Phone: [facility] 03-27-2022 14:20-0500 Body height 167.7 cm Salvador Calix MD Work Phone: [facility] 03-27-2022 14:20-0500 Body temperature 97.39 [degF] Salvador Calix MD Work Phone: [facility] 03-27-2022 14:20-0500 Body weight 106.23 kg Salvador Calix MD Work Phone: [facility] 03-27-2022 14:20-0500 Diastolic blood pressure 59 mm[Hg] Salvador Calix MD Work Phone: [facility] 03-27-2022 14:20-0500 Heart rate 100 /min Salvador Calix MD Work Phone: [facility] 03-27-2022 14:20-0500 Respiratory rate 16 /min Salvador Calix MD Work Phone: [facility] 03-27-2022 14:20-0500 SaO2% (BldA) [Mass fraction] 97 % Salvador Calix MD Work Phone: [facility] 03-27-2022 14:20-0500 Systolic blood pressure 125 mm[Hg] Salvador Calix MD Work Phone: [facility] 01-30-2022 11:46-0400 Body height 167.7 cm Salvador Calix MD Work Phone: [facility] 01-30-2022 11:46-0400 Body temperature 97.2 [degF] Salvador Calix MD Work Phone: [facility] 01-30-2022 11:46-0400 Body weight 104.42 kg Salvador Calix MD Work Phone: [facility] 01-30-2022 11:46-0400 Diastolic blood pressure 61 mm[Hg] Salvador Calix MD Work Phone: [facility] 01-30-2022 11:46-0400 Heart rate 88 /min Salvador Calix MD Work Phone: [facility] 01-30-2022 11:46-0400 Respiratory rate 16 /min Salvador Calix MD Work Phone: [facility] 01-30-2022 11:46-0400 SaO2% (BldA) [Mass fraction] 99 % Salvador Calix MD Work Phone: [facility] 01-30-2022 11:46-0400 Systolic blood pressure 122 mm[Hg] Salvador Calix MD Work Phone: [facility] 08-19-2021 10:46-0400 Blood Pressure Location PERNELL LONGORIA [facility] 08-19-2021 10:46-0400 Diastolic blood pressure 78 mm[Hg] PERNELL LONGORIA [facility] 08-19-2021 10:46-0400 Heart rate 96 /min PERNELL LONGORIA [facility] 08-19-2021 10:46-0400 SaO2% (BldA) [Mass fraction] 99 % PERNELL LONGORIA [facility] 08-19-2021 10:46-0400 Systolic blood pressure 124 mm[Hg] PERNELL LONGORIA [facility] Encounters Encounter Date Encounter Type Care Provider Facility Start: 05-16-2024 ambulatory Evans CASAS Facility: [facility] Start: 04-04-2024 End: 04-04-2024 Office outpatient visit 5 minutes [facility] Nurse [facility] Comment on above: GA: [id number] Start: 03-01-2024 End: 03-01-2024 ambulatory Wilton R MONTEZ Facility:[facility] Start: 03-01-2024 End: 03-01-2024 Patient encounter procedure Wilton R MONTEZ [facility] Start: 02-27-2024 ambulatory Wilton R MONTEZ Facility: [facility] Start: 02-27-2024 End: 02-28-2024 Telephone encounter Naga Johnson RN Hematology/Oncology Comment on above: Patient Question Start: 02-25-2024 End: 02-25-2024 ambulatory Wilton R MONTEZ Facility:[facility] Start: 02-25-2024 End: 02-25-2024 Patient encounter procedure Wilton R MONTEZ [facility] Start: 02-23-2024 End: 02-23-2024 ambulatory Evans CASAS Facility:[facility] Start: 02-23-2024 End: 02-23-2024 Patient encounter procedure Wilton R MONTEZ [facility] Start: 02-05-2024 End: 02-05-2024 ambulatory Evans CASAS Facility:[facility] Start: 02-05-2024 End: 02-05-2024 Patient encounter procedure Evans CASAS [facility] Start: 02-05-2024 End: 02-05-2024 Well adult monitoring check done Evans Cecily PRAVEEN [facility] Start: 02-02-2024 End: 02-02-2024 ambulatory Anni Gudimella Facility: [facility] Start: 02-02-2024 End: 02-02-2024 Patient encounter procedure Anni Gudimella [facility] Start: 01-29-2024 ambulatory Evans Tony PRAVEEN Facility: [facility] Start: 01-24-2024 End: 01-25-2024 Refill Salvador Calix MD Work Phone: Hematology/Oncology Comment on above: Refill Request Start: 01-02-2024 End: 01-07-2024 Telephone encounter Salvador Calix MD Work Phone: [facility] Comment on above: Results Start: 01-02-2024 End: 01-02-2024 Office outpatient visit 15 minutes Salvador Calix MD Work Phone: Hematology/Oncology Comment on above: 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); Vitamin D deficiency; Malaise and fatigue Start: 01-02-2024 End: 01-02-2024 ambulatory EVANS Cecily PRAVEEN Facility:[facility] Start: 12-17-2023 End: 12-17-2023 Telephone encounter Naga Johnson RN Hematology/Oncology Start: 12-06-2023 End: 12-06-2023 ambulatory Monica Saba Facility:[facility] Start: 12-06-2023 End: 12-06-2023 Patient encounter procedure Monica Saba [facility] Start: 12-03-2023 ambulatory Evans CASAS Facility: [facility] Start: 11-29-2023 End: 11-29-2023 ambulatory Salvador Calix MD Work Phone: Hematology/Oncology Comment on above: Iron infusion side e ffects? Refill Request Iron deficiency anem ia of (Primary Dx); Iron deficiency anemia secondary to blood loss (chronic) Start: 11-22-2023 End: 11-23-2023 ambulatory Chair 12 González Work Phone: Hematology/Oncology Comment on above: Iron deficiency anem ia of (Primary Dx); Iron deficiency anemia secondary to blood loss (chronic) Start: 11-19-2023 End: 11-19-2023 ambulatory ZUHAIR MICHELLE Not Available Start: 11-15-2023 Telephone encounter Financial Navigator Delgado Work Phone: Hematology/Oncology Start: 11-15-2023 End: 11-16-2023 ambulatory Chair 12 González Work Phone: Hematology/Oncology Comment on above: Iron deficiency anem ia of (Primary Dx); Iron deficiency anemia secondary to blood loss (chronic) Start: 11-09-2023 End: 11-09-2023 Patient encounter procedure Monica Saba [facility] Start: 11-09-2023 End: 11-09-2023 Social Work Tamiko SCHRADER Hematology/Oncology Start: 11-05-2023 Telephone encounter Salvador garcia MD Work Phone: [facility] Comment on above: Appointment Start: 10-29-2023 End: 10-29-2023 ambulatory EVANS CASAS Facility:[facility] Start: 10-23-2023 End: 10-23-2023 ambulatory Lourdes Garber Facility:[facility] Start: 10-23-2023 End: 10-23-2023 Patient encounter procedure Lourdes Garber [facility] Start: 09-28-2023 End: 09-28-2023 Emergency department patient visit Benny Uribe [facility] Start: 09-28-2023 End: 09-28-2023 ambulatory PA-C JANET DUNHAM Facility:[facility] Start: 09-28-2023 End: 09-28-2023 Patient encounter procedure JANET DUNHAM [facility] Start: 09-27-2023 Telephone encounter Salvador garcia MD Work Phone: [facility] Comment on above: Appointment Reschedu led Start: 09-21-2023 End: 09-26-2023 ambulatory Salvador Calix MD Work Phone: Hematology/Oncology Comment on above: 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) Start: 09-21-2023 End: 09-26-2023 Telemedicine consultation with patient Salvador Calix MD Work Phone: Hematology/Oncology Start: 09-21-2023 End: 09-21-2023 ambulatory SALVADOR CALIX Facility:[facility] Start: 08-03-2023 End: 08-03-2023 ambulatory Evans CASAS Facility:[facility] Start: 08-03-2023 End: 08-03-2023 Patient encounter procedure Evans CASAS [facility] Start: 06-29-2023 End: 06-29-2023 ambulatory Evans CASAS Facility:[facility] Start: 06-29-2023 End: 06-29-2023 Patient encounter procedure Evans CASAS [facility] Start: 06-19-2023 ambulatory Naga Johnson RN Hemat ology/Oncology Comment on above: Lab results/recommen dations Start: 06-19-2023 E-mail encounter fro m caregiver Naga CLAUDIO Start: 06-15-2023 End: 06-15-2023 Office outpatient visit 25 minutes Salvador Calix MD Work Phone: Hematology/Oncology Comment on above: Vitamin D deficiency (Primary Dx); Hypercalcemia; Iron deficiency anemia secondary to blood loss (chronic) Start: 06-15-2023 Telephone encounter Salvador garcia MD [facility] Comment on above: Results Start: 06-15-2023 End: 06-15-2023 ambulatory SALVADOR CALIX Facility:[facility] Start: 06-11-2023 Telephone encounter Salvador garcia MD Work Phone: Hematology/Oncology Comment on above: Lab Orders Start: 06-01-2023 Telephone encounter Salvador garcia MD [facility] Comment on above: Future Appointment Start: 05-31-2023 End: 06-01-2023 ambulatory Salvador Calix MD Work Phone: Hematology/Oncology Comment on above: Primary hypercoagula ble state (HCC) (Primary Dx); CVA, old, speech/language deficit; Hypercalcemia; Vitamin D deficiency; Iron deficiency anemia secondary to blood loss (chronic); Malaise and fatigue Start: 05-31-2023 End: 06-01-2023 Telemedicine consultation with patient Salvador Calix MD Work Phone: [facility] Start: 05-31-2023 End: 06-01-2023 ambulatory EVANS CASAS Facility:[facility] Start: 05-28-2023 End: 05-28-2023 ambulatory EVANS CASAS Facility:[facility] Start: 05-25-2023 End: 05-25-2023 ambulatory Evans A KAPLE Facility:[facility] Start: 05-25-2023 End: 05-25-2023 Patient encounter procedure Evans A STEPHANILE [facility] Start: 05-21-2023 ambulatory EVANS A KAPLE Facility: [facility] Start: 05-01-2023 End: 05-01-2023 ambulatory Evans A STEPHANILE Facility:[facility] Start: 04-27-2023 End: 04-27-2023 Lab Drop off Evans A STEPHANILE [facility] Start: 04-27-2023 End: 04-27-2023 ambulatory Evans A PRAVEEN Facility:[facility] Start: 04-25-2023 End: 04-25-2023 ambulatory Maxine Hong Facility:[facility] Start: 03-19-2023 End: 03-20-2023 ambulatory EVANS Cecily PRAVEEN Facility:[facility] Start: 03-19-2023 End: 03-19-2023 ambulatory Salvador Calix MD Work Phone: Hematology/Oncology Comment on above: Primary hypercoagula ble state (HCC) (Primary Dx); Iron deficiency anemia secondary to blood loss (chronic); Vitamin D deficiency; CVA, old, speech/language deficit; Antiphospholipid antibody syndrome (HCC) Start: 03-19-2023 End: 03-19-2023 Telemedicine consultation with patient Salvador Calix MD Work Phone: [facility] Start: 03-13-2023 End: 03-13-2023 ambulatory EVANS A STEPHANILE Facility:[facility] Start: 02-15-2023 End: 02-15-2023 ambulatory Evans A KAPLE Facility:[facility] Start: 02-15-2023 End: 02-15-2023 Patient encounter procedure Evans A STEPHANILE [facility] Start: 02-13-2023 ambulatory Evans A KAPLE Facility: [facility] Start: 12-26-2022 End: 12-26-2022 ambulatory Lourdes Garber Facility:[facility] Start: 12-26-2022 End: 12-26-2022 Patient encounter procedure Lourdes Garber [facility] Start: 12-22-2022 End: 12-22-2022 ambulatory Salvador Calix MD Work Phone: Hematology/Oncology Comment on above: Primary hypercoagula ble state (HCC) (Primary Dx); Iron deficiency anemia of ; Iron deficiency anemia secondary to blood loss (chronic); Vitamin D deficiency Start: 12-22-2022 End: 12-22-2022 Telemedicine consultation with patient Salvador Calix MD Work Phone: [employer] Start: 12-11-2022 Telephone encounter Salvador garcia MD Work Phone: [facility] Comment on above: Appointment Start: 10-20-2022 End: 10-20-2022 Patient encounter procedure Evans CASAS [facility] Start: 09-28-2022 End: 09-28-2022 ambulatory Salvador Claix MD Work Phone: Hematology/Oncology Comment on above: Primary hypercoagula ble state (HCC); CVA, old, speech/language deficit; Cerebral hyponatremia Start: 09-28-2022 End: 09-28-2022 Telemedicine consultation with patient Salvador Calix MD Work Phone: [facility] Start: 09-26-2022 End: 09-26-2022 Patient encounter procedure Salvador Calix [facility] Start: 09-19-2022 Telephone encounter Valeri Yan RN Hematology/Oncology Comment on above: Orders Start: 09-05-2022 End: 09-05-2022 Patient encounter procedure Wilton Spencer MANSFIELDMONTEZ [facility] Start: 08-07-2022 End: 08-07-2022 Patient encounter procedure Wilton Spencer MONTEZ [facility] Start: 07-27-2022 End: 07-27-2022 Office outpatient visit 25 minutes Salvador Calix MD Work Phone: Hematology/Oncology Comment on above: Primary hypercoagula ble state (HCC) (Primary Dx); Iron deficiency anemia secondary to blood loss (chronic); CVA, old, speech/language deficit Start: 07-03-2022 Refill Salvador palmer MD Work Phone: Hematology/Oncology Comment on above: Refill Request Start: 05-16-2022 End: 06-07-[address] WILTON HERRMANN Facility:[facility] Start: 05-10-2022 End: 05-10-[address] WILTON HERRMANN Facility:[facility] Start: 05-08-2022 End: 05-09-2022 Evaluation and management of inpatient DR KALPANA THOMAS Facility:[facility] Start: 05-05-2022 End: 05-05-[address] KALPANA THOMAS Facility:[facility] Start: 05-01-2022 End: 05-01-[address] WILTON HERRMANN Facility:[facility] Start: 04-28-2022 End: 04-28-[address] WILTON HERRMANN Facility:[facility] Start: 04-24-2022 End: 04-24-[address] KALPANA THOMAS Facility:[facility] Start: 04-20-2022 End: 04-21-2022 ambulatory Chair Ubaldo Claudio Work Phone: Hematology/Oncology Comment on above: 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); Iron deficiency anemia of Start: 04-19-2022 End: 04-19-[address] WILTON HERRMANN Facility:[facility] Start: 04-14-2022 End: 04-14-[address] WILTON HERRMANN Facility:[facility] Start: 04-07-2022 End: 04-07-[address] WILTON HERRMANN Facility:[facility] Start: 04-06-2022 Refill Salvador palmer MD Work Phone: Hematology/Oncology Comment on above: Refill Request Start: 04-05-2022 End: 04-05-2022 ambulatory Chair Logan Claudio Work Phone: Hematology/Oncology Comment on above: 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); Iron deficiency anemia of Start: 04-04-2022 Telephone encounter Meme Gonzalez RN Hematology/Oncology Comment on above: Appointment; Patient Question; Medication Question; Orders Start: 03-31-2022 End: 03-31-[address] WILTON HERRMANN Facility:[facility] Start: 03-27-2022 End: 03-27-2022 ambulatory Salvador Calix MD Work Phone: Hematology/Oncology Comment on above: 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); Iron deficiency anemia of Start: 03-27-2022 End: 03-27-2022 Patient encounter procedure Salvador Calix MD Work Phone: [facility] Start: 03-27-2022 Telephone encounter Salvador garcia MD Work Phone: [facility] Comment on above: Results Start: 03-24-2022 End: 03-24-[address] WILTON HERRMANN Facility:[facility] Start: 03-16-2022 End: 03-17-[address] WILTON HERRMANN Facility:[facility] Start: 02-24-2022 End: 02-27-[address] WILTON HERRMANN Facility:[facility] Start: 02-14-2022 End: 02-14-[address] WILTON HERRMANN Facility:[facility] Start: 01-30-2022 End: 01-30-2022 ambulatory Salvador Calix MD Work Phone: Hematology/Oncology Comment on above: Primary hypercoagula ble state (HCC) (Primary Dx); CVA, old, speech/language deficit; Antiphospholipid antibody syndrome (HCC); Anemia, unspecified type Start: 01-30-2022 End: 01-30-2022 Patient encounter procedure Salvador Calix MD Work Phone: [facility] Start: 01-24-2022 End: 01-25-[address] WILTON HERRMANN Facility:[facility] Start: 01-24-2022 End: 01-25-[address] WILTON HERRMANN Facility:[facility] Start: 01-07-2022 End: 01-08-[address] WILTON HERRMANN Facility:[facility] Start: 12-30-2021 Refill Tonja Wallace RN Work Phone: Hematology/Oncology Comment on above: Refill Request Start: 12-28-2021 End: 12-29-[address] WILTON HERRMANN Facility:[facility] Start: 11-21-2021 End: 11-22-2021 ambulatory EVANS CASAS [facility] Start: 11-21-2021 End: 11-21-2021 Subsequent hospital visit by physician Evans Casas Work Phone: [facility] Start: 11-14-2021 End: 02-13-2022 Patient encounter procedure SELF REFERRAL [facility] Start: 11-04-[address] WILTON HERRMANN Facility :[facility] Start: 10-25-2021 End: 10-26-[address] WILTON HERRMANN Facility:[facility] Start: 10-10-2021 Refill Meme aEston RN Delgado tology/Oncology Comment on above: Refill Request Start: 09-23-2021 End: 09-24-[address] WILTON HERRMANN Facility:[facility] Start: 09-06-2021 Telephone encounter Mmee Easton RN Hematology/Oncology Comment on above: Medication Question Start: 09-02-2021 Telephone encounter Meme Easton RN Hematology/Oncology Comment on above: Patient Question Start: 09-01-2021 End: 09-02-[address] WILTON HERRMANN Facility:[facility] Start: 08-31-2021 End: 08-31-2021 Patient encounter procedure Evans CASAS [facility] Start: 08-29-2021 End: 08-30-[address] WILTON HERRMANN Facility:[facility] Start: 08-26-2021 End: 08-27-[address] WILTON HERRMANN Facility:[facility] Start: 08-24-2021 End: 08-25-[address] WILTON HERRMANN Facility:[facility] Start: 08-22-2021 Telephone encounter Meme Easton RN Hematology/Oncology Comment on above: Patient Question Start: 08-19-2021 End: 08-19-2021 Patient encounter procedure PERNELL LONGORIA [facility] Start: 08-19-2021 End: 08-19-2021 Lab Drop off PERNELL LONGORIA [facility] Start: 08-19-2021 End: 08-19-2021 Patient encounter procedure PERNELL LONGORIA [facility] Start: 08-01-2021 Telephone encounter Salvador garcia MD Work Phone: [facility] Comment on above: Future Appointment Start: 08-01-2021 End: 08-01-2021 Nursing evaluation of patient and report Ma Nurse Delgado Golden Work Phone: Hematology/Oncology Comment on above: Infective urethritis (Primary Dx) Start: 06-03-2018 Patient encounter procedure Haseeb Morel Facility:[facility] Start: 11-08-2017 Patient encounter procedure ERIKA LONDON Facility:[id number] Start: 05-25-2017 End: 05-26-2017 Ambulatory [facility] Procedures Date Procedure Procedure Detail Performing Clinician Start: 04-04-2024 End: 04-04-2024 Urnls dip stick/tablet rgnt non-auto w/o micrscp Wilton Herrmann DO Work Phone: Start: 11-15-2023 Vaccine refused by patient Immunization not carried out because of patient decision [facility]oms Nurse Start: 05-07-2022 Delivery of Products of Conception, External Approach DR WILTON HERRMANN Start: 04-05-2022 Gluc bld gluc mntr dev cleared fda spec home use [facility] Provider Start: 11-21-2021 MISCELLANEOUS TESTING Tod Lopez MD Work Phone: Start: 02-02-2020 Adult depression screening assessment Nevin Golden Work Phone: Start: 05-25-2017 CSF CULTURE PENG MONGE Start: 05-25-2017 APTT PENG MONGE Start: 05-25-2017 CSF CELL COUNT WITH DIFFERENTIAL PENG MONGE Start: 05-25-2017 JENNIFER SIMPSON VIRUS PCR PENG OMNGE Start: 05-25-2017 GLUCOSE, CSF PENG MONGE Start: 05-25-2017 MYELIN BASIC PROTEIN, CSF PENG MONGE Start: 05-25-2017 OLIGOCLONAL BANDING PENG MONGE Start: 05-25-2017 PROTEIN, CSF PENG MONGE Start: 05-25-2017 PROTIME-INR PENG MONGE Start: 05-25-2017 Spinal puncture lumbar diagnostic PENG MONGE Start: 05-25-2017 ANTIPHOSPHOLIPID ANTIBODY PANEL PENG MONGE Start: 05-25-2017 CARDIOLIPIN AB IGG, IGM, IGA PENG MONGE Start: 05-25-2017 CK PENG MONGE Start: 05-25-2017 HOMOCYSTEINE, SERUM PENG MONGE Start: 05-25-2017 MISC ARUP 1 PENG MONGE Start: 05-25-2017 ASSESS PENG MONGE Start: 05-25-2017 BEDREST PENG MONGE Start: 06-14-2013 Biopsy of breast PERNELL SIDEMICHELLE Start: 04-30-2006 Extraction of wisdom tooth PERNELL SIDEMICHELLE endoscopy for ovaria n cysts to drain PERNELL SIDEMICHELLE Vaccine refused by patient COVID -19 vaccine dose declined( Confirmed ) PERNELL LONGORIA Plan of Treatment Date Care Activity Detail Author Start: 07-03-2024 DTaP/Tdap/Td vaccine (2 - Td or Tdap) DTaP/Tdap/Td vaccine (2 - Td or Tdap) [facility] Start: 07-03-2024 Urine microalbumin profile [facility] Start: 05-06-2024 End: 05-06-2024 Patient encounter procedure 05/06/2024 1:50 PM EST Routine [facility] [address] [place] [id number] Wilton Herrmann, [address] [place] [address] [facility] Start: 04-09-2024 End: 04-09-2024 Follow-up encounter Hematology/Oncology Comment on above: 3 month follow up wi th lab Start: 04-09-2024 End: 04-09-2024 Patient encounter procedure [facility] Comment on above: 3 month follow up wi th lab Start: 04-04-2024 End: 04-04-2025 ABO/Rh ABO/Rh Lab Routine Missed menses , unspecified gestational age Expected: 04/04/2024 (Approximate), Expires: 04/04/2025 [facility] Comment on above: Expected: 04/04/2024 (Approximate), Expires: 04/04/2025 Start: 04-04-2024 End: 04-04-2025 Blood type and Indirect antibody screen panel - Blood Type and screen Lab Routine Missed menses , unspecified gestational age Expected: 04/04/2024 (Approximate), Expires: 04/04/2025 [facility] Work Phone: Comment on above: Expected: 04/04/2024 (Approximate), Expires: 04/04/2025 Start: 04-04-2024 End: 04-04-2025 Drugs of abuse panel - Urine by Screen method Rapid drug screen, urine Lab Routine , unspecified gestational age Encounter for supervision of normal first in first trimester Expected: 04/04/2024 (Approximate), Expires: 04/04/2025 [facility] Comment on above: Expected: 04/04/2024 (Approximate), Expires: 04/04/2025 Start: 04-04-2024 End: 04-04-2025 US Pelvis transvaginal US OB transvaginal Imaging Routine Missed menses Expected: 04/04/2024 (Approximate), Expires: 04/04/2025 [facility] Comment on above: Expected: 04/04/2024 (Approximate), Expires: 04/04/2025 Start: 04-02-2024 End: 07-02-2024 25-hydroxyvitamin D3 [Mass/volume] in Serum or Plasma VITAMIN D 25 HYDROXY Lab Routine Iron deficiency anemia secondary to blood loss (chronic) Vitamin D deficiency Malaise and fatigue Expected: 04/02/2024 (Approximate), Expires: 07/02/2024 [facility] Comment on above: Expected: 04/02/2024 (Approximate), Expires: 07/02/2024 Start: 04-02-2024 End: 01-01-2025 CBC W Auto Differential panel - Blood COMPLETE BLOOD COUNT AND DIFFERENTIAL Lab Routine Iron deficiency anemia secondary to blood loss (chronic) Vitamin D deficiency Malaise and fatigue Expected: 04/02/2024 (Approximate), Expires: 01/01/2025 [facility] Comment on above: Expected: 04/02/2024 (Approximate), Expires: 01/01/2025 Start: 04-02-2024 End: 01-01-2025 Cobalamin (Vitamin B12) [Mass/volume] in Serum or Plasma VITAMIN B12 Lab Routine Iron deficiency anemia secondary to blood loss (chronic) Vitamin D deficiency Malaise and fatigue Expected: 04/02/2024 (Approximate), Expires: 01/01/2025 [facility] Comment on above: Expected: 04/02/2024 (Approximate), Expires: 01/01/2025 Start: 04-02-2024 End: 01-01-2025 Comprehensive metabolic 2000 panel - Serum or Plasma COMPREHENSIVE METABOLIC PANEL Lab Routine Iron deficiency anemia secondary to blood loss (chronic) Vitamin D deficiency Malaise and fatigue Expected: 04/02/2024 (Approximate), Expires: 01/01/2025 [facility] Comment on above: Expected: 04/02/2024 (Approximate), Expires: 01/01/2025 Start: 04-02-2024 End: 01-01-2025 Ferritin [Mass/volume] in Serum or Plasma FERRITIN Lab Routine Iron deficiency anemia secondary to blood loss (chronic) Vitamin D deficiency Malaise and fatigue Expected: 04/02/2024 (Approximate), Expires: 01/01/2025 [facility] Comment on above: Expected: 04/02/2024 (Approximate), Expires: 01/01/2025 Start: 04-02-2024 End: 01-01-2025 Folate [Mass/volume] in Serum or Plasma FOLATE, SERUM Lab Routine Iron deficiency anemia secondary to blood loss (chronic) Vitamin D deficiency Malaise and fatigue Expected: 04/02/2024 (Approximate), Expires: 01/01/2025 [facility] Comment on above: Expected: 04/02/2024 (Approximate), Expires: 01/01/2025 Start: 04-02-2024 End: 01-01-2025 Iron and Iron binding capacity panel - Serum or Plasma IRON AND TIBC Lab Routine Iron deficiency anemia secondary to blood loss (chronic) Vitamin D deficiency Malaise and fatigue Expected: 04/02/2024 (Approximate), Expires: 01/01/2025 [facility] Comment on above: Expected: 04/02/2024 (Approximate), Expires: 01/01/2025 Start: 04-02-2024 End: 07-02-2024 Thyrotropin [Units/volume] in Serum or Plasma THYROID STIMULATING HORMONE Lab Routine Iron deficiency anemia secondary to blood loss (chronic) Vitamin D deficiency Malaise and fatigue Expected: 04/02/2024 (Approximate), Expires: 07/02/2024 [facility] Work Phone: Comment on above: Expected: 04/02/2024 (Approximate), Expires: 07/02/2024 Start: 01-05-2024 End: 01-01-2025 CBC W Auto Differential panel - Blood COMPLETE BLOOD COUNT AND DIFFERENTIAL Lab Routine Iron deficiency anemia secondary to blood loss (chronic) Vitamin D deficiency Malaise and fatigue Expected: 01/05/2024 (Approximate), Expires: 01/01/2025 [facility] Comment on above: Expected: 01/05/2024 (Approximate), Expires: 01/01/2025 Start: 01-05-2024 End: 01-01-2025 Comprehensive metabolic 2000 panel - Serum or Plasma COMPREHENSIVE METABOLIC PANEL Lab Routine Iron deficiency anemia secondary to blood loss (chronic) Vitamin D deficiency Malaise and fatigue Expected: 01/05/2024 (Approximate), Expires: 01/01/2025 [facility] Comment on above: Expected: 01/05/2024 (Approximate), Expires: 01/01/2025 Start: 01-02-2024 End: 01-02-2024 Follow-up encounter 01/02/2024 1:45 PM EDT Visit (SP) Office Hematology/Oncology [address] [place] [address] Salvador Calix MD [address] [place] [address] 8 WEEK FOLLOW UP Hematology/Oncology Comment on above: 8 WEEK FOLLOW UP Start: 01-02-2024 End: 01-02-2024 Patient encounter procedure 01/02/2024 1:30 PM EDT Office Visit [facility] [address] [place] [address] [place] [address] 8 WEEK FOLLOW UP [facility] Comment on above: 8 WEEK FOLLOW UP Start: 12-30-2023 Covid-19 Vaccine ( season) Covid-19 Vaccine ( season) [facility] Start: 12-30-2023 Covid-19 Vaccine ( season) Covid-19 Vaccine ( season) [facility] Start: 12-30-2023 Influenza vaccination [facility] Start: 11-29-2023 End: 11-29-2023 ambulatory 11/29/2023 1:30 PM EDT Infusion Center Hematology/Oncology [address] [place] [address] [address] Hematology/Oncology Comment on above: [address] Start: 11-22-2023 End: 11-22-2023 ambulatory 11/22/2023 1:30 PM EDT Infusion Center Hematology/Oncology [address] [place] [address] [address] Hematology/Oncology Comment on above: [address] Start: 11-15-2023 End: 11-15-2023 ambulatory 11/15/2023 1:30 PM EDT Infusion Center Hematology/Oncology [address] [place] [address] [address] Hematology/Oncology Comment on above: [address] Start: 09-13-2023 End: 12-13-2023 25-hydroxyvitamin D3 [Mass/volume] in Serum or Plasma VITAMIN D 25 HYDROXY Lab Routine Vitamin D deficiency 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) Expected: 09/13/2023 (Approximate), Expires: 12/13/2023 [facility] Work Phone: Comment on above: Expected: 09/13/2023 (Approximate), Expires: 12/13/2023 Start: 09-13-2023 End: 12-13-2023 Calcium.ionized [Moles/volume] in Blood CALCIUM IONIZED BLOOD Lab Routine Vitamin D deficiency 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) Expected: 09/13/2023 (Approximate), Expires: 12/13/2023 [facility] Work Phone: Comment on above: Expected: 09/13/2023 (Approximate), Expires: 12/13/2023 Start: 09-13-2023 End: 06-15-2024 CBC W Auto Differential panel - Blood CBC + DIFF Lab Routine Vitamin D deficiency 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) Expected: 09/13/2023 (Approximate), Expires: 06/15/2024 [facility] Work Phone: Comment on above: Expected: 09/13/2023 (Approximate), Expires: 06/15/2024 Start: 09-13-2023 End: 06-15-2024 Cobalamin (Vitamin B12) [Mass/volume] in Serum or Plasma VITAMIN B12 BLOOD Lab Routine Vitamin D deficiency 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) Expected: 09/13/2023 (Approximate), Expires: 06/15/2024 [facility] Work Phone: Comment on above: Expected: 09/13/2023 (Approximate), Expires: 06/15/2024 Start: 09-13-2023 End: 06-15-2024 Comprehensive metabolic 2000 panel - Serum or Plasma COMP METABOLIC PANEL Lab Routine Vitamin D deficiency 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) Expected: 09/13/2023 (Approximate), Expires: 06/15/2024 [facility] Work Phone: Comment on above: Expected: 09/13/2023 (Approximate), Expires: 06/15/2024 Start: 09-13-2023 End: 06-15-2024 Ferritin [Mass/volume] in Serum or Plasma FERRITIN BLD Lab Routine Vitamin D deficiency 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) Expected: 09/13/2023 (Approximate), Expires: 06/15/2024 [facility] Work Phone: Comment on above: Expected: 09/13/2023 (Approximate), Expires: 06/15/2024 Start: 09-13-2023 End: 06-15-2024 Folate [Mass/volume] in Serum or Plasma FOLATE SERUM Lab Routine Vitamin D deficiency 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) Expected: 09/13/2023 (Approximate), Expires: 06/15/2024 [facility] Work Phone: Comment on above: Expected: 09/13/2023 (Approximate), Expires: 06/15/2024 Start: 09-13-2023 End: 06-15-2024 Iron and Iron binding capacity panel - Serum or Plasma IRON + TIBC Lab Routine Vitamin D deficiency 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) Expected: 09/13/2023 (Approximate), Expires: 06/15/2024 [facility] Work Phone: Comment on above: Expected: 09/13/2023 (Approximate), Expires: 06/15/2024 Start: 09-13-2023 End: 12-13-2023 Parathyrin.intact [Mass/volume] in Serum or Plasma PTH INTACT BLD Lab Routine Vitamin D deficiency 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) Expected: 09/13/2023 (Approximate), Expires: 12/13/2023 [facility] Work Phone: Comment on above: Expected: 09/13/2023 (Approximate), Expires: 12/13/2023 Start: 06-15-2023 End: 09-14-2023 25-hydroxyvitamin D3 [Mass/volume] in Serum or Plasma VITAMIN D 25 HYDROXY Lab Routine Vitamin D deficiency Expected: 06/15/2023 (Approximate), Expires: 09/14/2023 [facility] Work Phone: Comment on above: Expected: 06/15/2023 (Approximate), Expires: 09/14/2023 Start: 06-15-2023 End: 09-14-2023 Calcium.ionized [Moles/volume] in Blood CALCIUM IONIZED BLOOD Lab Routine Vitamin D deficiency Hypercalcemia Expected: 06/15/2023 (Approximate), Expires: 09/14/2023 [facility] Work Phone: Comment on above: Expected: 06/15/2023 (Approximate), Expires: 09/14/2023 Start: 06-15-2023 End: 06-12-2024 CBC W Auto Differential panel - Blood CBC + DIFF Lab Routine Iron deficiency anemia secondary to blood loss (chronic) Expected: 06/15/2023 (Approximate), Expires: 06/12/2024 [facility] Work Phone: Comment on above: Expected: 06/15/2023 (Approximate), Expires: 06/12/2024 Start: 06-15-2023 End: 06-12-2024 Cobalamin (Vitamin B12) [Mass/volume] in Serum or Plasma VITAMIN B12 BLOOD Lab Routine Iron deficiency anemia secondary to blood loss (chronic) Expected: 06/15/2023 (Approximate), Expires: 06/12/2024 [facility] Work Phone: Comment on above: Expected: 06/15/2023 (Approximate), Expires: 06/12/2024 Start: 06-15-2023 End: 06-12-2024 Comprehensive metabolic 2000 panel - Serum or Plasma COMP METABOLIC PANEL Lab Routine Iron deficiency anemia secondary to blood loss (chronic) Expected: 06/15/2023 (Approximate), Expires: 06/12/2024 [facility] Work Phone: Comment on above: Expected: 06/15/2023 (Approximate), Expires: 06/12/2024 Start: 06-15-2023 End: 06-12-2024 Ferritin [Mass/volume] in Serum or Plasma FERRITIN BLD Lab Routine Iron deficiency anemia secondary to blood loss (chronic) Expected: 06/15/2023 (Approximate), Expires: 06/12/2024 [facility] Work Phone: Comment on above: Expected: 06/15/2023 (Approximate), Expires: 06/12/2024 Start: 06-15-2023 End: 06-12-2024 Folate [Mass/volume] in Serum or Plasma FOLATE SERUM Lab Routine Iron deficiency anemia secondary to blood loss (chronic) Expected: 06/15/2023 (Approximate), Expires: 06/12/2024 [facility] Work Phone: Comment on above: Expected: 06/15/2023 (Approximate), Expires: 06/12/2024 Start: 06-15-2023 End: 06-12-2024 Iron and Iron binding capacity panel - Serum or Plasma IRON + TIBC Lab Routine Iron deficiency anemia secondary to blood loss (chronic) Expected: 06/15/2023 (Approximate), Expires: 06/12/2024 [facility] Work Phone: Comment on above: Expected: 06/15/2023 (Approximate), Expires: 06/12/2024 Start: 06-15-2023 End: 09-14-2023 PTH, INTACT (WITHOUT CALCIUM) PTH, INTACT (WITHOUT CALCIUM) Lab Routine Vitamin D deficiency Hypercalcemia Expected: 06/15/2023 (Approximate), Expires: 09/14/2023 [facility] Work Phone: Comment on above: Expected: 06/15/2023 (Approximate), Expires: 09/14/2023 Start: 06-15-2023 End: 09-14-2023 Thyrotropin [Units/volume] in Serum or Plasma TSH BLD Lab Routine Malaise and fatigue Expected: 06/15/2023 (Approximate), Expires: 09/14/2023 [facility] Work Phone: Comment on above: Expected: 06/15/2023 (Approximate), Expires: 09/14/2023 Start: 06-14-2023 End: 09-13-2023 25-hydroxyvitamin D3 [Mass/volume] in Serum or Plasma VITAMIN D 25 HYDROXY Lab Routine Hypercalcemia Vitamin D deficiency Expected: 06/14/2023 (Approximate), Expires: 09/13/2023 [facility] Work Phone: Comment on above: Expected: 06/14/2023 (Approximate), Expires: 09/13/2023 Start: 06-14-2023 End: 09-13-2023 Calcium.ionized [Moles/volume] in Blood CALCIUM IONIZED BLOOD Lab Routine Hypercalcemia Vitamin D deficiency Expected: 06/14/2023 (Approximate), Expires: 09/13/2023 [facility] Work Phone: Comment on above: Expected: 06/14/2023 (Approximate), Expires: 09/13/2023 Start: 06-14-2023 End: 09-13-2023 PTH, INTACT (WITHOUT CALCIUM) PTH, INTACT (WITHOUT CALCIUM) Lab Routine Hypercalcemia Vitamin D deficiency Expected: 06/14/2023 (Approximate), Expires: 09/13/2023 [facility] Work Phone: Comment on above: Expected: 06/14/2023 (Approximate), Expires: 09/13/2023 Start: 06-14-2023 End: 09-13-2023 Thyrotropin [Units/volume] in Serum or Plasma TSH BLD Lab Routine Hypercalcemia Malaise and fatigue Expected: 06/14/2023 (Approximate), Expires: 09/13/2023 [facility] Work Phone: Comment on above: Expected: 06/14/2023 (Approximate), Expires: 09/13/2023 Start: 05-14-2023 End: 03-19-2024 CBC W Auto Differential panel - Blood CBC + DIFF Lab Routine Primary hypercoagulable state (HCC) Iron deficiency anemia secondary to blood loss (chronic) Vitamin D deficiency CVA, old, 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) Expected: 05/14/2023 (Approximate), Expires: 03/19/2024 [facility] Work Phone: Comment on above: Expected: 05/14/2023 (Approximate), Expires: 03/19/2024 Start: 05-14-2023 End: 03-19-2024 Cobalamin (Vitamin B12) [Mass/volume] in Serum or Plasma VITAMIN B12 BLOOD Lab Routine Primary hypercoagulable state (HCC) Iron deficiency anemia secondary to blood loss (chronic) Vitamin D deficiency CVA, old, 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) Expected: 05/14/2023 (Approximate), Expires: 03/19/2024 [facility] Work Phone: Comment on above: Expected: 05/14/2023 (Approximate), Expires: 03/19/2024 Start: 05-14-2023 End: 03-19-2024 Comprehensive metabolic 2000 panel - Serum or Plasma COMP METABOLIC PANEL Lab Routine Primary hypercoagulable state (HCC) Iron deficiency anemia secondary to blood loss (chronic) Vitamin D deficiency CVA, old, 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) Expected: 05/14/2023 (Approximate), Expires: 03/19/2024 [facility] Work Phone: Comment on above: Expected: 05/14/2023 (Approximate), Expires: 03/19/2024 Start: 05-14-2023 End: 03-19-2024 Ferritin [Mass/volume] in Serum or Plasma FERRITIN BLD Lab Routine Primary hypercoagulable state (HCC) Iron deficiency anemia secondary to blood loss (chronic) Vitamin D deficiency CVA, old, 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) Expected: 05/14/2023 (Approximate), Expires: 03/19/2024 [facility] Work Phone: Comment on above: Expected: 05/14/2023 (Approximate), Expires: 03/19/2024 Start: 05-14-2023 End: 03-19-2024 Folate [Mass/volume] in Serum or Plasma FOLATE SERUM Lab Routine Primary hypercoagulable state (HCC) Iron deficiency anemia secondary to blood loss (chronic) Vitamin D deficiency CVA, old, 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) Expected: 05/14/2023 (Approximate), Expires: 03/19/2024 [facility] Work Phone: Comment on above: Expected: 05/14/2023 (Approximate), Expires: 03/19/2024 Start: 05-14-2023 End: 03-19-2024 Iron and Iron binding capacity panel - Serum or Plasma IRON + TIBC Lab Routine Primary hypercoagulable state (HCC) Iron deficiency anemia secondary to blood loss (chronic) Vitamin D deficiency CVA, old, 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) Expected: 05/14/2023 (Approximate), Expires: 03/19/2024 [facility] Work Phone: Comment on above: Expected: 05/14/2023 (Approximate), Expires: 03/19/2024 Start: 04-30-2023 Behavioral Health Screening Behavioral Health Screening [facility] Start: 04-30-2023 Depression Assessment Depression Ass essment [facility] Start: 02-16-2023 End: 04-18-2023 25-hydroxyvitamin D3 [Mass/volume] in Serum or Plasma VITAMIN D 25 HYDROXY Lab Routine Primary hypercoagulable state (HCC) Iron deficiency anemia secondary to blood loss (chronic) Vitamin D deficiency Expected: 02/16/2023 (Approximate), Expires: 04/18/2023 [facility] Work Phone: Comment on above: Expected: 02/16/2023 (Approximate), Expires: 04/18/2023 Start: 02-16-2023 End: 12-23-2023 CBC W Auto Differential panel - Blood CBC + DIFF Lab Routine Primary hypercoagulable state (HCC) Iron deficiency anemia secondary to blood loss (chronic) Expected: 02/16/2023 (Approximate), Expires: 12/23/2023 [facility] Work Phone: Comment on above: Expected: 02/16/2023 (Approximate), Expires: 12/23/2023 Start: 02-16-2023 End: 12-23-2023 Cobalamin (Vitamin B12) [Mass/volume] in Serum or Plasma VITAMIN B12 BLOOD Lab Routine Primary hypercoagulable state (HCC) Iron deficiency anemia secondary to blood loss (chronic) Expected: 02/16/2023 (Approximate), Expires: 12/23/2023 [facility] Work Phone: Comment on above: Expected: 02/16/2023 (Approximate), Expires: 12/23/2023 Start: 02-16-2023 End: 12-23-2023 Comprehensive metabolic 2000 panel - Serum or Plasma COMP METABOLIC PANEL Lab Routine Primary hypercoagulable state (HCC) Iron deficiency anemia secondary to blood loss (chronic) Expected: 02/16/2023 (Approximate), Expires: 12/23/2023 [facility] Work Phone: Comment on above: Expected: 02/16/2023 (Approximate), Expires: 12/23/2023 Start: 02-16-2023 End: 12-23-2023 Ferritin [Mass/volume] in Serum or Plasma FERRITIN BLD Lab Routine Primary hypercoagulable state (HCC) Iron deficiency anemia secondary to blood loss (chronic) Expected: 02/16/2023 (Approximate), Expires: 12/23/2023 [facility] Work Phone: Comment on above: Expected: 02/16/2023 (Approximate), Expires: 12/23/2023 Start: 02-16-2023 End: 12-23-2023 Folate [Mass/volume] in Serum or Plasma FOLATE SERUM Lab Routine Primary hypercoagulable state (HCC) Iron deficiency anemia secondary to blood loss (chronic) Expected: 02/16/2023 (Approximate), Expires: 12/23/2023 [facility] Work Phone: Comment on above: Expected: 02/16/2023 (Approximate), Expires: 12/23/2023 Start: 02-16-2023 End: 12-23-2023 Iron and Iron binding capacity panel - Serum or Plasma IRON + TIBC Lab Routine Primary hypercoagulable state (HCC) Iron deficiency anemia secondary to blood loss (chronic) Expected: 02/16/2023 (Approximate), Expires: 12/23/2023 [facility] Work Phone: Comment on above: Expected: 02/16/2023 (Approximate), Expires: 12/23/2023 Start: 12-29-2022 Covid-19 Vaccine () Covid-19 Vaccine () [facility] Start: 12-29-2022 Influenza vaccination [facility] Start: 12-04-2022 PAP TESTING PAP TESTING [facility] Start: 12-04-2022 Screening for malign ant neoplasm of cervix Pap Testing [facility] Start: 11-28-2022 End: 10-04-2023 CBC W Auto Differential panel - Blood CBC + DIFF Lab Routine Primary hypercoagulable state (HCC) CVA, old, speech/language deficit Cerebral hyponatremia Expected: 11/28/2022 (Approximate), Expires: 10/04/2023 [facility] Work Phone: Comment on above: Expected: 11/28/2022 (Approximate), Expires: 10/04/2023 Start: 11-28-2022 End: 10-04-2023 Cobalamin (Vitamin B12) [Mass/volume] in Serum or Plasma VITAMIN B12 BLOOD Lab Routine Primary hypercoagulable state (HCC) CVA, old, speech/language deficit Cerebral hyponatremia Expected: 11/28/2022 (Approximate), Expires: 10/04/2023 [facility] Work Phone: Comment on above: Expected: 11/28/2022 (Approximate), Expires: 10/04/2023 Start: 11-28-2022 End: 10-04-2023 Comprehensive metabolic 2000 panel - Serum or Plasma COMP METABOLIC PANEL Lab Routine Primary hypercoagulable state (HCC) CVA, old, speech/language deficit Cerebral hyponatremia Expected: 11/28/2022 (Approximate), Expires: 10/04/2023 [facility] Work Phone: Comment on above: Expected: 11/28/2022 (Approximate), Expires: 10/04/2023 Start: 11-28-2022 End: 10-04-2023 Ferritin [Mass/volume] in Serum or Plasma FERRITIN BLD Lab Routine Primary hypercoagulable state (HCC) CVA, old, speech/language deficit Cerebral hyponatremia Expected: 11/28/2022 (Approximate), Expires: 10/04/2023 [facility] [facility] Work Phone: Comment on above: Expected: 11/28/2022 (Approximate), Expires: 10/04/2023 Start: 11-28-2022 End: 10-04-2023 Folate [Mass/volume] in Serum or Plasma FOLATE SERUM Lab Routine Primary hypercoagulable state (HCC) CVA, old, speech/language deficit Cerebral hyponatremia Expected: 11/28/2022 (Approximate), Expires: 10/04/2023 [facility] Work Phone: Comment on above: Expected: 11/28/2022 (Approximate), Expires: 10/04/2023 Start: 11-28-2022 End: 10-04-2023 Iron and Iron binding capacity panel - Serum or Plasma IRON + TIBC Lab Routine Primary hypercoagulable state (HCC) CVA, old, speech/language deficit Cerebral hyponatremia Expected: 11/28/2022 (Approximate), Expires: 10/04/2023 [facility] Work Phone: Comment on above: Expected: 11/28/2022 (Approximate), Expires: 10/04/2023 Start: 09-21-2022 End: 07-28-2023 CBC W Auto Differential panel - Blood CBC + DIFF Lab Routine Primary hypercoagulable state (HCC) 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, old, speech/language deficit Expected: 09/21/2022 (Approximate), Expires: 07/28/2023 [facility] Work Phone: Comment on above: Expected: 09/21/2022 (Approximate), Expires: 07/28/2023 Start: 09-21-2022 End: 07-28-2023 Cobalamin (Vitamin B12) [Mass/volume] in Serum or Plasma VITAMIN B12 BLOOD Lab Routine Primary hypercoagulable state (HCC) 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, old, speech/language deficit Expected: 09/21/2022 (Approximate), Expires: 07/28/2023 [facility] Work Phone: Comment on above: Expected: 09/21/2022 (Approximate), Expires: 07/28/2023 Start: 09-21-2022 End: 07-28-2023 Comprehensive metabolic 2000 panel - Serum or Plasma COMP METABOLIC PANEL Lab Routine Primary hypercoagulable state (HCC) 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, old, speech/language deficit Expected: 09/21/2022 (Approximate), Expires: 07/28/2023 [facility] Work Phone: Comment on above: Expected: 09/21/2022 (Approximate), Expires: 07/28/2023 Start: 09-21-2022 End: 07-28-2023 Ferritin [Mass/volume] in Serum or Plasma FERRITIN BLD Lab Routine Primary hypercoagulable state (HCC) 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, old, speech/language deficit Expected: 09/21/2022 (Approximate), Expires: 07/28/2023 [facility] Work Phone: Comment on above: Expected: 09/21/2022 (Approximate), Expires: 07/28/2023 Start: 09-21-2022 End: 07-28-2023 Folate [Mass/volume] in Serum or Plasma FOLATE SERUM Lab Routine Primary hypercoagulable state (HCC) 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, old, speech/language deficit Expected: 09/21/2022 (Approximate), Expires: 07/28/2023 [facility] Work Phone: Comment on above: Expected: 09/21/2022 (Approximate), Expires: 07/28/2023 Start: 09-21-2022 End: 07-28-2023 Iron and Iron binding capacity panel - Serum or Plasma IRON + TIBC Lab Routine Primary hypercoagulable state (HCC) 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, old, speech/language deficit Expected: 09/21/2022 (Approximate), Expires: 07/28/2023 [facility] Work Phone: Comment on above: Expected: 09/21/2022 (Approximate), Expires: 07/28/2023 Start: 04-30-2022 [facility] Start: 01-30-2022 End: 01-30-2023 Ferritin [Mass/volume] in Serum or Plasma FERRITIN BLD Lab Routine Anemia, unspecified type Expected: 01/30/2022, Expires: 01/30/2023 [facility] Work Phone: Comment on above: Expected: 01/30/2022 , Expires: 01/30/2023 Start: 01-30-2022 End: 01-30-2023 Iron and Iron binding capacity panel - Serum or Plasma IRON + TIBC Lab Routine Anemia, unspecified type Expected: 01/30/2022, Expires: 01/30/2023 [facility] Work Phone: Comment on above: Expected: 01/30/2022 , Expires: 01/30/2023 Start: 12-29-2021 Influenza vaccination [facility] Start: 12-29-2021 End: 12-29-2021 Patient encounter procedure 12/29/2021 Routine Perinatology [facility] Start: 04-30-2021 [facility]ION [facility]MENT [facility] Start: 02-01-2021 Adult depression screening assessment DEPRESSION SCREENING [facility] Start: 12-04-2020 Screening for malign ant neoplasm of cervix Cervical Cancer Screening [facility] Start: 2020 Diabetes screen Diabetes screen [facility] Start: 10-22-2015 HPV TESTING HPV TESTING [facility] Start: 10-22-2015 Screening for malign ant neoplasm of cervix [facility] Start: 2006 Screening for malign ant neoplasm of cervix Pap smear [facility] Start: 2004 Hepatitis B Vaccine (1 of 3 - 19+ 3-dose series) Hepatitis B Vaccine (1 of 3 - 19+ 3-dose series) [facility] Start: 10-22-2003 Anxiety Screening Anxiety Screening [facility] Start: 10-22-2003 Depression Screening Depression Scre ening [facility] Start: 10-22-2003 HEPATITIS C SCREENING HEPATITIS C SC REENING [facility] Start: 10-22-2003 Hepatitis C screening B ON [facility] Start: 10-22-2003 HIV SCREENING HIV SCREENING [facility] Start: 10-22-2003 HIV screening HIV Screening [facility] Start: 1997 Depression Screen Depression Screen [facility] Start: 1990 COVID-19 VACCINE (#1) COVID-19 VACCI NE (#1) [facility] Start: 1990 COVID-19 VACCINE (1) COVID-19 VACCIN E (1) [facility] Start: 1986 Varicella vaccine (1 of 2 - 2-dose childhood series) Varicella vaccine (1 of 2 - 2-dose childhood series) [facility] Start: 04-22-1986 COVID-19 Vaccine (#1) COVID-19 Vacci ne (#1) [facility] Start: 1985 HEPATITIS B (1 of 3 - 3-dose series) HEPATITIS B (1 of 3 - 3-dose series) [facility] Start: 1985 Hepatitis B Vaccine (1 of 3 - 3-dose series) Hepatitis B Vaccine (1 of 3 - 3-dose series) [facility] End: 11-21-2021 Alpha Fetoprotein, Maternal [facility] Work Phone: Comment on above: Once for 1 Occurrenc es starting 11/21/2021 until 11/21/2021 Bacteria identified in Urine by Culture Urine culture Microbiology Routine Missed menses Ordered: 04/04/2024 [facility] Comment on above: Ordered: 04/04/2024 End: 01-30-2023 CBC W Auto Differential panel - Blood CBC + DIFF Lab Routine Primary hypercoagulable state (HCC) CVA, old, 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) Every 2 months for 6 Occurrences starting 01/30/2022 until 01/30/2023 [facility] Work Phone: Comment on above: Every 2 months for 6 Occurrences starting 01/30/2022 until 01/30/2023 CBC W Auto Different ial panel - Blood CBC and differential Lab Routine Missed menses , unspecified gestational age Ordered: 04/04/2024 [facility] Comment on above: Ordered: 04/04/2024 End: 01-30-2023 Comprehensive metabolic 2000 panel - Serum or Plasma COMP METABOLIC PANEL Lab Routine Primary hypercoagulable state (HCC) CVA, old, 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) Every 2 months for 6 Occurrences starting 01/30/2022 until 01/30/2023 [facility] Work Phone: Comment on above: Every 2 months for 6 Occurrences starting 01/30/2022 until 01/30/2023 Hemoglobin A1c/Hemoglobin.total in Blood Hemoglobin A1c Lab Routine Missed menses , unspecified gestational age Ordered: 04/04/2024 [facility] Comment on above: Ordered: 04/04/2024 Hepatitis B virus surface Ag [Presence] in Serum or Plasma by Immunoassay Hepatitis B surface antigen Lab Routine Missed menses , unspecified gestational age Ordered: 04/04/2024 [facility] Comment on above: Ordered: 04/04/2024 Hepatitis C virus Ab [Presence] in Serum or Plasma by Immunoassay Hepatitis C antibody Lab Routine Missed menses , unspecified gestational age Ordered: 04/04/2024 [facility] Comment on above: Ordered: 04/04/2024 HIV-1/HIV-2 antigen/antibody combination immunoassay HIV-1 and HIV-2 antibodies Lab Routine Missed menses , unspecified gestational age Ordered: 04/04/2024 [facility] Comment on above: Ordered: 04/04/2024 Reagin Ab [Presence] in Serum by RPR RPR Lab Routine Missed menses , unspecified gestational age Ordered: 04/04/2024 [facility] Comment on above: Ordered: 04/04/2024 Rubella antibody, IgG Rubella an tibody, IgG Lab Routine Missed menses , unspecified gestational age Ordered: 04/04/2024 [facility] Comment on above: Ordered: 04/04/2024 Thyrotropin [Units/volume] in Serum or Plasma TSH Lab Routine Hypothyroidism (acquired) (CMS/HCC) Ordered: 04/04/2024 [facility] Comment on above: Ordered: 04/04/2024 UA DIP, URINE (POC) UA DIP, URIN E (POC) Lab Routine Infective urethritis Ordered: 08/01/2021 [facility] Work Phone: Comment on above: Ordered: 08/01/2021 Vitamin D 1,25 dihydroxy Vitamin D 1,25 dihydroxy Lab Routine Low vitamin D level Ordered: 04/04/2024 [facility] Comment on above: Ordered: 04/04/2024 [facility] Immunizations Immunization Date Immunization Notes Care Provider Jamie alfonso 03-05-2018 influenza virus vaccine, unspecified formulation Salvador Calix MD Work Phone: [facility] 07-03-2014 tetanus toxoid, reduced diphtheria toxoid, and acellular pertussis vaccine, adsorbed Ma Sand Work Phone: [facility] NEGATED: Highlighted row has not occurred!02-15-2023 influenza virus vaccine, unspecified formulation Evans CASAS [facility] NEGATED: Highlighted row has not occurred!04-07-2020 influenza virus vaccine, unspecified formulation PERNELL LONGORIA [facility] [place] Payers Date Payer Category Payer Medicaid [id number] 2020 Medicaid [employer] [id number] 2020-Present [phone] [address] [place] [address] Medicaid [id number] 2020 Medicaid [id number] 1.13.159.2.7.3.6 [id number] 1985 Unknown [id number] 2.16.840.1.614525.3.579.2.356 1985 Unknown [id number] 2.16.840.1.788914.3.579.2.356 1985 Unknown [id number] 2.16.840.1.965566.3.579.2.175 1985 Unknown [id number] 2.16.840.1.330365.3.579.2.593 1985 Unknown [id number] 2.16.840.1.520819.3.579.2.593 1985 Unknown [id number] 2.16.840.1.747306.3.579.2.593 1985 Unknown [id number] 2.16.840.1.400118.3.579.2.593 1985 Unknown [id number] 2.16.840.1.945521.3.579.2.593 1985 Unknown [id number] 2.16.840.1.450923.3.579.2.593 1985 Unknown [id number] 2.16.840.1.884643.3.579.2.593 1985 Unknown [id number] 2.16.840.1.124568.3.579.2.593 1985 Unknown [id number] 2.16.840.1.244388.3.579.2.593 1985 Unknown [id number] 2.16.840.1.333552.3.579.2.593 1985 Unknown [id number] 2.16.840.1.389612.3.579.2.593 1985 Unknown [id number] 2.16.840.1.869952.3.579.2.593 1985 Unknown [id number] 2.16.840.1.688814.3.579.2.593 1985 Unknown [id number] 2.16.840.1.677862.3.579.2.593 1985 Unknown [id number] 2.16.840.1.650598.3.579.2.593 1985 Unknown [id number] 2.16.840.1.989438.3.579.2.593 1985 Unknown [id number] 2.16.840.1.757615.3.579.2.593 1985 Unknown [id number] 2.16.840.1.826934.3.579.2.593 1985 Unknown [id number] 2.16.840.1.939047.3.579.2.593 1985 Unknown [id number] 2.16.840.1.304547.3.579.2.593 1985 Unknown [id number] 2.16.840.1.835294.3.579.2.593 1985 Unknown [id number] 2.16.840.1.416598.3.579.2.593 1985 Unknown [id number] 2.16.840.1.942567.3.579.2.593 1985 Unknown [id number] 2.16.840.1.667962.3.579.2.593 1985 Unknown [id number] 2.16.840.1.810397.3.579.2.593 1985 Unknown [id number] 2.16.840.1.854555.3.579.2.593 1985 Unknown [id number] 2.16.840.1.368605.3.579.2.1259 1985 Unknown [id number] 2.16.840.1.206029.3.579.2. 1985 Unknown [id number] 2.16.840.1.904246.3.579.2 1985 Unknown [id number] 2.16.840.1.665049.3.579.2 1985 Unknown [id number] 2.16.840.1.253554.3.579.2 1985 Unknown [id number] 2.16.840.1.495235.3.579.2 1985 Unknown [id number] 2.16.840.1.053122.3.579.2 1985 Unknown [id number] 2.16.840.1.329668.3.579.2 1985 Unknown [id number] 2.840.1.638667.3.579.2 1985 Unknown [id number] 2.16840.1.109802.3.579.2 1985 Unknown [id number] 2.16840.1.186188.3.579.2 1985 Unknown [id number] 2.16840.1.068944.3.579.2 1985 Unknown [id number] 2.840.1.648321.3.579.2 1985 Unknown [id number] 2.16840.1.480560.3.579.2 1985 Unknown [id number] 2.16840.1.198045.3.579.2 1985 Unknown [id number] 2.16.840.1.155543.3.579.2 1985 Unknown [id number] 2.16840.1.324808.3.579.2 1985 Unknown [id number] 2.16.840.1.150505.3.579.2.727 1985 Unknown [id number] 2.16.840.1.489878.3.579.2. 1985 Unknown [id number] 2.16.840.1.523090.3.579.2. 1985 Unknown [id number] 2.16.840.1.306952.3.579.2. 1985 Unknown [id number] 2.16.840.1.492650.3.579.2. 1985 Unknown [id number] 2.16.840.1.946754.3.579.2. 1985 Unknown [id number] 2.16.840.1.358408.3.579.2. 1985 Unknown [id number] 2.16.840.1.154563.3.579.2. 1985 Unknown [id number] 2.16.840.1.188131.3.579.2. 1985 Unknown [id number] 2.16.840.1.706568.3.579.2. 1985 Unknown [id number] 2.16.840.1.285394.3.579.2. 1985 Unknown [id number] 2.16.840.1.581808.3.579.2. 1985 Unknown [id number] 2.16.840.1.822029.3.579.2. 1985 Unknown [id number] 2.16.840.1.409747.3.579.2.727 1959 Self-pay 1959 Unknown [id number] 1959 Unknown [id number] 1.2.840.552282.1.13.239.2.7.3.6 17378.315 Unknown [id number] 2.16.840.1.501076.3.579.2.593 Social History Date Type Detail Facility Start: 09-10-2017 End: 02-19-2023 Tobacco smoking status NHIS Never smoked tobacco [facility] Start: 09-10-2017 End: 02-19-2023 Tobacco use and exposure Smokeless tobacco non-user [facility] Start: 08-01-2021 End: 07-27-2022 Alcohol intake Current non-drinker of alcohol (finding) [facility] Start: 1985 Sex Assigned At Not on file [facility] Start: 07-22-2021 End: 03-27-2022 Exposure to SARS-CoV-2 (event) Not sure [facility] Tobacco smoking status Never [facility] [employer] Start: 07-27-2022 End: 11-19-2023 Sex Assigned At Female [facility] [employer] Start: 11-21-2021 Alcohol intake Ex-drinker (finding) [employer] Phone: Start: 12-29-2016 History SDOH Alcohol Comment occasionally [employer] Phone: Start: 08-20-2021 [employer] Phone: Start: 07-27-2022 End: 11-19-2023 History of Social function [facility] Start: 04-04-2024 Alcoholic beverage intake Lifetime non-drinker (finding) [facility] Functional Status Date Assessment Result Facility 02-05-2024 Functional Status N/A [facility] 02-02-2024 Functional Status N/A [facility] 11-09-2023 Functional Status N/A [facility] 10-23-2023 Functional Status N/A [facility] 09-28-2023 Functional Status N/A [facility] 08-03-2023 Functional Status N/A [facility] 05-25-2023 Functional Status N/A [facility] 02-15-2023 Functional Status N/A [facility] 10-20-2022 Functional Status N/A [facility] Clinical Notes 08-01-2021 to 04-04-2024 Ariane DEB Joseph - 04/04/2024 10:00 AM ESTTelephone Encounter - Naga Johnson RN - 02/28/2024 8:21 AM EDTTelephone Encounter - Naga Johnson RN - 02/28/2024 8:21 AM EDTPatient Instructions Note Date & Type Note Facility 04-04-2024 History of Presen t illness Narrative Reason for Appointment: Patient ID: Madhu Rendon is a 38 y.o. female who presents for Amenorrhea Patient presents today for a Nurse OB Intake appointment. Patient is 9w3d with a Estimated Date of Delivery: 11/04/24 OB History Para Term AB Living 7 3 3 2 3 SAB IAB Ectopic Multiple Live Births 2 # Outcome Date GA Lbr Milo/2nd Weight Sex Type Anes PTL Lv 7 Current 6 Term 01/08/20 39w0d 8 lb 2 oz M Vag-Spont Comments: 1st degree tear 5 SAB 11/03/18 4 Term 07/01/14 39w0d 7 lb 1 oz F Vag-Spont Comments: Maternal hemorrhage 3 SAB 03/29/13 2 Term 11/27/07 40w0d 8 lb 8 oz M Vag-Spont 1 Obstetric Comments Last pap smear date 02/14/2022 negative STD 02/14/22 - negative Current Medications: has a current medication list which includes the following prescription(s): aspirin, levothyroxine, levothyroxine, metformin xr, multi-vitamin, and ondansetron odt. Medical History: Active Ambulatory Problems Diagnosis Date Noted 32 weeks gestation of 11/28/2019 Abdominal pain 06/12/2023 Acute bronchitis due to infection 06/12/2023 Acute on chronic vesicular eczema of hands and feet 11/15/2023 Anemia complicating childbirth 01/16/2020 Anticoagulant long-term use 02/22/2020 Antiphospholipid antibody positive 09/10/2017 Antiphospholipid antibody syndrome (CMS/HCC) 07/07/2019 Anxiety 06/12/2023 Blood pressure elevated without history of HTN 11/15/2023 BMI 37.0-37.9, adult 11/15/2023 Cerebral infarction, unspecified ([facility]) 05/16/2019 Cerebrovascular accident (CVA) due to stenosis of middle cerebral artery ([facility]) 02/22/2020 Cervicalgia 02/05/2019 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 Coagulation defect, unspecified ([facility]) 02/05/2019 Cold intolerance 11/15/2023 Deficiency of other specified B group vitamins 05/16/2019 Deviated septum 11/15/2023 Dizziness and giddiness 02/05/2019 Dry mouth 11/15/2023 Dysfunction of eustachian tube 06/12/2023 Dyspnea 06/12/2023 Elevated blood pressure reading 11/15/2023 Encounter for supervision of normal , unspecified, first trimester 05/29/2019 Environmental allergies 11/15/2023 Fatigue 12/29/2016 First degree perineal laceration during delivery 01/16/2020 Frequency of micturition 02/19/2019 Genitourinary symptoms 08/19/2021 Gestational diabetes mellitus (GDM) affecting 01/26/2022 H/O: hypothyroidism 11/15/2023 Hematochezia 06/12/2023 History of asthma 11/15/2023 History of cerebrovascular accident 11/15/2023 History of COVID-19 11/15/2023 History of gestational diabetes 11/15/2023 History of kidney stones 11/15/2023 Hx of iron deficiency anemia 11/15/2023 Hyponatremia 05/16/2019 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 Immunization not carried out because of patient decision 11/15/2023 Inhalation injury 06/12/2023 Iron deficiency 11/15/2023 Acute posthemorrhagic anemia 01/16/2020 Irregular uterine bleeding 11/15/2023 problem 06/12/2023 Less than 8 weeks gestation of 06/05/2019 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 02/05/2019 Migraine without aura and without status migrainosus, not intractable ([facility]) 09/12/2017 Morbid obesity ([facility]) 11/15/2023 Muscle fasciculation 08/19/2021 Nasal polyps 11/15/2023 Non-smoker 11/15/2023 NEETA (obstructive sleep apnea) 11/15/2023 Other acute postprocedural pain 02/03/2019 Other general symptoms and signs 10/28/2019 Other immediate hemorrhage 01/16/2020 Other specified noninflammatory disorders of vagina 02/21/2019 Pain in joint 12/29/2016 Palpitations 08/26/2019 Paresthesia of bilateral legs 11/15/2023 Pelvic and perineal pain 02/01/2019 Personal history of urinary (tract) infections 01/16/2020 Pre-diabetes 11/15/2023 Primary hypercoagulable state ([facility]) 08/01/2022 Pruritus, unspecified 01/02/2020 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[facility]) 06/12/2023 Raised antibody titer 09/25/2017 Right lower quadrant pain 11/15/2023 Right otitis externa 11/15/2023 Salivary gland swelling 11/15/2023 Single live 01/15/2020 Snoring 11/15/2023 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) 12/30/2019 Suspected severe acute respiratory syndrome coronavirus 2 (SARS-CoV-2) infection 06/12/2023 SVT (supraventricular tachycardia) ([facility]) 08/26/2019 Syncope and collapse 06/03/2018 Other bacterial infections of unspecified site 06/27/2019 Thrombocytopenia, unspecified ([facility]) 11/20/2019 Hypoglycemia 06/12/2023 Unspecified condition associated with female genital organs and menstrual cycle 05/09/2019 Unspecified ovarian cyst, right side 02/06/2019 Urinary tract infection 10/16/2019 Referred otalgia of right ear 11/19/2023 LPRD (laryngopharyngeal reflux disease) 11/19/2023 Resolved Ambulatory Problems Diagnosis Date Noted No Resolved Ambulatory Problems Past Medical History: Diagnosis Date AMA (advanced maternal age) multigravida 35+ Anemia Antiphospholipid syndrome ([facility]) Gestational diabetes Heartburn Hypothyroid ([facility]) Stroke ([facility]) Family History Problem Relation Name Age of Onset Other (Cerebrovascular Accident) Father Diabetes Father Diabetes Sister Mental illness Maternal Grandmother Other (Heart problems) Maternal Grandfather Diabetes Paternal Grandmother Cancer Paternal Grandmother Cancer Paternal Grandfather Diabetes Paternal Grandfather Social History Tobacco Use Smoking status: Never Smokeless tobacco: Never Substance Use Topics Alcohol use: Never Drug use: Never Past Surgical History: Procedure Laterality Date BREAST BIOPSY 2013 LAPAROSCOPY DIAGNOSTIC / BIOPSY / ASPIRATION / LYSIS 02/02/2019 Right Ovarian incision and drainage of cyst WISDOM TOOTH EXTRACTION 2007 [place] teeth Allergies Allergen Reactions Ciprofloxacin GI intolerance Ciprofloxacin-Fluocinolone Pf Other Reaction(s): Other: See Comments Dizziness, weakness sweating Lactose Other Reaction(s): GI Disturbance, GI Upset Diarrhea Diarrhea Lactose Intolerance (Gi) Other Reaction(s): Illness Octacosanol Other Reaction(s): Other (See Comments) Other Other seasonal Vitals: Estimated body mass index is 35.85 kg/m as calculated from the following: Height as of 11/19/23: 5' 6 . Weight as of this encounter: 222 lb 1.9 oz. BP: Patient's last menstrual period was 01/29/2024. Assessment/Plan Diagnoses and all orders for this visit: Missed menses - Type and screen; Future - ABO/Rh; Future - CBC and differential - Hemoglobin A1c - RPR - Rubella antibody, IgG - Hepatitis B surface antigen - Hepatitis C antibody - HIV-1 and HIV-2 antibodies - Urine culture - US OB transvaginal; Future - POCT , urine manually resulted - POCT urinalysis dipstick manually resulted , unspecified gestational age - Type and screen; Future - ABO/Rh; Future - CBC and differential - Hemoglobin A1c - RPR - Rubella antibody, IgG - Hepatitis B surface antigen - Hepatitis C antibody - HIV-1 and HIV-2 antibodies - Rapid drug screen, urine; Future Encounter for supervision of normal first in first trimester - Rapid drug screen, urine; Future Hypothyroidism (acquired) (CMS/HCC) - TSH Low vitamin D level - Vitamin D 1,25 dihydroxy Nurse Note: OB Intake: Patient presents today for first OB visit. Patients history has been reviewed in great detail including any potential risks. Patient signed consent forms and patient desires testing in both trimesters. Patient currently has no complaints and has been advised to drink 6-8 glasses of water a day, eat no raw or undercooked meat, and stay away from [facility]. Patient has also been advised to not change litter boxes and eat 6 small meals a day. Patient has been consulted regarding the do's and don'ts of . Patient was given labs and all questions and concerns were answered. Follow Up: Patient is to return in 4 weeks for routine OB appointment. Follow Up: Patient is to have labs drawn at directed and return to office for initial OB appointment with provider. Patient may call office as needed with any concerns or questions. Nurse Visit Completed by: Ariane Joseph LPN documented in this encounter [facility] 02-28-2024 Telephone encounter Note Pt aware and agreeable to plan of care. Pt denies any further questions, needs or concerns at this time. Appt verified for lab/follow up Naga Johnson RN [facility] 02-28-2024 Miscellaneous Notes Pt aware and agreeable to plan of care. Pt denies any further questions, needs or concerns at this time. Appt verified for lab/follow up Naga Johnson RN She can take the iron with prenatals. We should March labs as scheduled. Pt 4 weeks and inquiring if she should have Johnathon's lab work completed now or wait until scheduled appt. Pt last labs completed 01/02/24. Pt also would like to know if it is okay to take with iron? Fely: Please advise Naga Johnson RN documented in this encounter [facility] 02-27-2024 Telephone encounter Note She can take the iron with prenatals. We should Jonhathon labs as scheduled. [facility] 02-27-2024 Telephone encounter Note Pt 4 weeks and inquiring if she should have Johnathon's lab work completed now or wait until scheduled appt. Pt last labs completed 01/02/24. Pt also would like to know if it is okay to take with iron? Fely: Please advise Naga Johnson RN [facility] 02-05-2024 Hospital Discharg e instructions Patient Education 02/05/2024 14:07:02 Acute Bronchitis, Adult Acute Bronchitis, Adult Acute bronchitis is sudden inflammation of the main airways (bronchi) that come off the windpipe (trachea) in the lungs. The swelling causes the airways to get smaller and make more mucus than normal. This can make it hard to breathe and can cause coughing or noisy breathing (wheezing). Acute bronchitis may last several weeks. The cough may last longer. Allergies, asthma, and exposure to smoke may make the condition worse. What are the causes? This condition can be caused by germs and by substances that irritate the lungs, including: Cold and flu viruses. The most common cause of this condition is the virus that causes the common cold. Bacteria. This is less common. Breathing in substances that irritate the lungs, including: ?Smoke from cigarettes and other forms of tobacco. ?Dust and pollen. ?Fumes from household cleaning products, gases, or burned fuel. ?Indoor or outdoor air pollution. What increases the risk? The following factors may make you more likely to develop this condition: A weak body's defense system, also called the immune system. A condition that affects your lungs and breathing, such as asthma. What are the signs or symptoms? Common symptoms of this condition include: Coughing. This may bring up clear, yellow, or green mucus from your lungs (sputum). Wheezing. Runny or stuffy nose. Having too much mucus in your lungs (chest congestion). Shortness of breath. Aches and pains, including sore throat or chest. How is this diagnosed? This condition is usually diagnosed based on: Your symptoms and medical history. A physical exam. You may also have other tests, including tests to rule out other conditions, such as pneumonia. These tests include: A test of lung function. Test of a mucus sample to look for the presence of bacteria. Tests to check the oxygen level in your blood. Blood tests. Chest X-ray. How is this treated? Most cases of acute bronchitis clear up over time without treatment. Your health care provider may recommend: Drinking more fluids to help thin your mucus so it is easier to cough up. Taking inhaled medicine (inhaler) to improve air flow in and out of your lungs. Using a vaporizer or a humidifier. These are machines that add water to the air to help you breathe better. Taking a medicine that thins mucus and clears congestion (expectorant). Taking a medicine that prevents or stops coughing (cough suppressant). It is not common to take an antibiotic medicine for this condition. Follow these instructions at home: Take tfxo-kjq-ymtkrsd and prescription medicines only as told by your health care provider. Use an inhaler, vaporizer, or humidifier as told by your health care provider. Take two teaspoons (10 mL) of honey at bedtime to lessen coughing at night. Drink enough fluid to keep your urine pale yellow. Do not use any products that contain nicotine or tobacco. These products include cigarettes, chewing tobacco, and vaping devices, such as e-cigarettes. If you need help quitting, ask your health care provider. Get plenty of rest. Return to your normal activities as told by your health care provider. Ask your health care provider what activities are safe for you. Keep all follow-up visits. This is important. How is this prevented? To lower your risk of getting this condition again: Wash your hands often with soap and water for at least 20 seconds. If soap and water are not available, use hand armature rewinder. Avoid contact with people who have cold symptoms. Try not to touch your mouth, nose, or eyes with your hands. Avoid breathing in smoke or chemical fumes. Breathing smoke or chemical fumes will make your condition worse. Get the flu shot every year. Contact a health care provider if: Your symptoms do not improve after 2 weeks. You have trouble coughing up the mucus. Your cough keeps you awake at night. You have a fever. Get help right away if you: Cough up blood. Feel pain in your chest. Have severe shortness of breath. Faint or keep feeling like you are going to faint. Have a severe headache. Have a fever or chills that get worse. These symptoms may represent a serious problem that is an emergency. Do not wait to see if the symptoms will go away. Get medical help right away. Call your local emergency services (911 in the [place] Do not drive yourself to the hospital. Summary Acute bronchitis is inflammation of the main airways (bronchi) that come off the windpipe (trachea) in the lungs. The swelling causes the airways to get smaller and make more mucus than normal. Drinking more fluids can help thin your mucus so it is easier to cough up. Take ifyo-egk-lhrfdqp and prescription medicines only as told by your health care provider. Do not use any products that contain nicotine or tobacco. These products include cigarettes, chewing tobacco, and vaping devices, such as e-cigarettes. If you need help quitting, ask your health care provider. Contact a health care provider if your symptoms do not improve after 2 weeks. This information is not intended to replace advice given to you by your health care provider. Make sure you discuss any questions you have with your health care provider. Document Revised: 07/27/2022 Document Reviewed: 08/17/2021 [employer] Patient Education 2023 [employer]. Follow Up Care 02/04/2024 08:47:42 With:PRAVEEN RESENDEZ FAAFP, Evans Tony, CHRIS, PED Address: [address] [place] [address] [place] [address]- When:Within 3 Month(s) [facility] 02-05-2024 Note Patient Education Pulmonary Medicine Acute Bronchitis, Adult Acute bronchitis is sudden inflammation of the main airways (bronchi) that come off the windpipe (trachea) in the lungs. The swelling causes the airways to get smaller and make more mucus than normal. This can make it hard to breathe and can cause coughing or noisy breathing (wheezing). Acute bronchitis may last several weeks. The cough may last longer. Allergies, asthma, and exposure to smoke may make the condition worse. What are the causes? This condition can be caused by germs and by substances that irritate the lungs, including: ? Cold and flu viruses. The most common cause of this condition is the virus that causes the common cold. ? Bacteria. This is less common. ? Breathing in substances that irritate the lungs, including: ? Smoke from cigarettes and other forms of tobacco. ? Dust and pollen. ? Fumes from household cleaning products, gases, or burned fuel. ? Indoor or outdoor air pollution. What increases the risk? The following factors may make you more likely to develop this condition: ? A weak body's defense system, also called the immune system. ? A condition that affects your lungs and breathing, such as asthma. What are the signs or symptoms? Common symptoms of this condition include: ? Coughing. This may bring up clear, yellow, or green mucus from your lungs (sputum). ? Wheezing. ? Runny or stuffy nose. ? Having too much mucus in your lungs (chest congestion). ? Shortness of breath. ? Aches and pains, including sore throat or chest. How is this diagnosed? This condition is usually diagnosed based on: ? Your symptoms and medical history. ? A physical exam. You may also have other tests, including tests to rule out other conditions, such as pneumonia. These tests include: ? A test of lung function. ? Test of a mucus sample to look for the presence of bacteria. ? Tests to check the oxygen level in your blood. ? Blood tests. ? Chest X-ray. How is this treated? Most cases of acute bronchitis clear up over time without treatment. Your health care provider may recommend: ? Drinking more fluids to help thin your mucus so it is easier to cough up. ? Taking inhaled medicine (inhaler) to improve air flow in and out of your lungs. ? Using a vaporizer or a humidifier. These are machines that add water to the air to help you breathe better. ? Taking a medicine that thins mucus and clears congestion (expectorant). ? Taking a medicine that prevents or stops coughing (cough suppressant). It is not common to take an antibiotic medicine for this condition. Follow these instructions at home: ? Take fyop-hgp-vgygayd and prescription medicines only as told by your health care provider. ? Use an inhaler, vaporizer, or humidifier as told by your health care provider. ? Take two teaspoons (10 mL) of honey at bedtime to lessen coughing at night. ? Drink enough fluid to keep your urine pale yellow. ? Do not use any products that contain nicotine or tobacco. These products include cigarettes, chewing tobacco, and vaping devices, such as e-cigarettes. If you need help quitting, ask your health care provider. ? Get plenty of rest. ? Return to your normal activities as told by your health care provider. Ask your health care provider what activities are safe for you. ? Keep all follow-up visits. This is important. How is this prevented? To lower your risk of getting this condition again: ? Wash your hands often with soap and water for at least 20 seconds. If soap and water are not available, use hand armature rewinder. ? Avoid contact with people who have cold symptoms. ? Try not to touch your mouth, nose, or eyes with your hands. ? Avoid breathing in smoke or chemical fumes. Breathing smoke or chemical fumes will make your condition worse. ? Get the flu shot every year. Contact a health care provider if: ? Your symptoms do not improve after 2 weeks. ? You have trouble coughing up the mucus. ? Your cough keeps you awake at night. ? You have a fever. Get help right away if you: ? Cough up blood. ? Feel pain in your chest. ? Have severe shortness of breath. ? Faint or keep feeling like you are going to faint. ? Have a severe headache. ? Have a fever or chills that get worse. These symptoms may represent a serious problem that is an emergency. Do not wait to see if the symptoms will go away. Get medical help right away. Call your local emergency services (911 in the [place] Do not drive yourself to the hospital. Summary ? Acute bronchitis is inflammation of the main airways (bronchi) that come off the windpipe (trachea) in the lungs. The swelling causes the airways to get smaller and make more mucus than normal. ? Drinking more fluids can help thin your mucus so it is easier to cough up. ? Take meja-xzl-vinqlzs and (more content not included)... [facility] 02-02-2024 Hospital Discharg e instructions Follow Up Care 02/02/2024 11:19:56 With:Anni Bernstein MD, [facility] Address: [address] [place] [phone] When: only if needed [facility] 01-07-2024 Miscellaneous Notes No need for IV iron per CC'd chart from Dr. Calix. Attempt to call pt to notify. Left detailed message on, along with call back number on voicemail. Valeri Yan RN Dr Luna is requesting Triage to call Madhu with her FE results. Thank you documented in this encounter [facility] 01-07-2024 Telephone encounter Note No need for IV iron per CC'd chart from Dr. Calix. Attempt to call pt to notify. Left detailed message on, along with call back number on voicemail. Valeri Yan RN [facility] 01-02-[address] Luna is requesting Triage to call Madhu with her FE results. Thank you [facility] 01-02-2024 Instructions Nathaly Florence - 01/02/2024 2:08 PM EDT Triage to call iron results Continue Lovenox - patient prefers 40 mg (rather than rec 80mg) Encouraged her to reconsider Take B12 supplement in the form of a sublingual tablet RTC in 3 months Labs same day Vitamin D, TSH, Calcium with CMP documented in this encounter [facility] 01-02-2024 Nurse Note Patient states that at least once a month she gets a low grade fever, her cheeks feel hot and flushed, she will use ice to cool it down. Patient was in ER in August, stomach cramping that would not subside-similar to contractions her whole abdominal area was coral. She wonders if it could have been from Lovonox. Since last January right ear pain, sinus area pain-they did MRI but was negative. Serina Dawson MA [facility] 01-02-2024 Nurse Note Patient states that at least once a month she gets a low grade fever, her cheeks feel hot and flushed, she will use ice to cool it down. Patient was in ER in August, stomach cramping that would not subside-similar to contractions her whole abdominal area was coral. She wonders if it could have been from Lovonox. Since last January right ear pain, sinus area pain-they did MRI but was negative. Serina Dawson MA documented in this encounter [facility] 01-02-2024 History of Presen t illness Narrative Images from the original note were not included. NAME: Madhu Rendon CLINIC NO.: [id number] DATE OF SERVICE: January 02, 2024 (jose) Some elements in this clinic note that are critical to medical decision making have been carefully reviewed and included from a prior clinic note dated: June 15, 2023 (Levon) Additional Clinicians involved in Madhu Rendon's care: Drs. Herrmann, Jorge Monge, Humaira Gaviria, Dr. Boothe CC: hypercoag state. ASSESSMENT: 38 year old woman presents with a prior history of CVA in 2016 and an antiphospholipid antibody that was identified much later in 2018. These were found in [place], [place]. I don't have access to these results. Patient believes that she has anticardiolipin antibodies but wasn't sure. She has been on Plavix for approximately year and a half and had bled heavily on aspirin preceding this. She currently has no evidence of active thrombosis. We had discussed the potential etiology of antiphospholipid antibodies in the context of her symptoms which preceded her diagnosis by approximately 2 years presenting as a CVA. At some point in time she had a vW disease workup but we don't have that specific data from prior workup. After discussion with her neurologist, Dr. Jorge Monge, we put her on prophylactic dose Lovenox throughout her prior but is now again and at 25 weeks. Had difficulty with associated diabetes. Recalls having had a target-like rash shortly before presenting to [place] in 2016 with headaches and was diagnosed with a CVA. - She saw Dr. Baugh but no relevant conclusion was made. She remains on Lovenox - still breast feeding. No clinical need to recheck her APL Ab or Cardiolipin Ab's as results will not change our treatment plan. PLAN: Triage to call iron results Continue Lovenox - patient prefers 40 mg (rather than rec 80mg) Encouraged her to reconsider Take B12 supplement in the form of a sublingual tablet RTC in 3 months Labs same day Vitamin D, TSH, Calcium with CMP HPI: Updated Visit, January 02, 2024: Madhu returns today for a follow up. She reports a low grade fever and facial redness that is sore to the touch occurring every month since June for about a few days at a time. In October and November, she reports nerve pain and itching/burning skin as well. She is able to successfully treat with ice packs. She is unable to find a direct correlation between her symptoms although speculates it is a hormonal reaction. She denies spending significant time in the sun prior to her symptoms, although does mention she felt fatigued after a day outside. Workup for inflammatory Lupus has been negative in the past. She was seen in the ER in August for abdominal cramping, workup was unrevealing. She has also had right ear and sinus pain since January - MRI was negative. Numbness and vision changes occur rarely now. I encouraged her to continue supplemental B12 at home. Iron studies are pending - consider iron replacement if indicated. Updated Visit, June 15, 2023: Madhu returns today with her youngest two children. She is still breast feeding. Numbness and vision changes both have subsided, she still plans to see Dr. Monge soon. When she had a stroke in [place], she had symptoms up to a month before: uncontrollable headache, BP was elevated, knee stiffness, and blurry vision. Right facial drooping and difficulty speaking sent her to the hospital. She continues to take vitamins. Updated Visit, May 31, 2023: Virtual Visit Shadow over right eye and some numbness of her face. Feels like she's getting itchy under her skin - intermittent electric-shocks . Abdominal contractions that feel like labor but not low in the pelvis. Weight is unchanged and she is having trouble losing weight. Feels she has a lot of fullness in her neck/throat. Could not operate her video. Updated Visit, March 19, 2023: Virtual Visit: Doing ok but is getting sick. Was not able to connect video. Vitamin D is low. Having trouble with blood sugars Baby and all kids doing well. Still breast feeding. Updated Visit, December 22, 2022: Virtual visit Had a few more bloody bowel movements after we spoke last time. But resolved more than a month ago. Labs are good - no need for iron . B12 is on the lower end of normal. Otherwise and I think unrelated - weak, urinating a lot and mouth is dry all the time for the past few days. Updated Visit, September 28, 2022: Virtual Visit Had blood with BM x2 - has had this before and stayed on Lovenox Hgb 13.1 @ [facility] Recommended ER if persisting bleeding but she would prefer to stay on Lovenox for now. Updated Visit, July 27, 2022: Madhu returns today and has 2 of her youngest children with her. She didn't hemorrhage with her most recent delivery and has a healthy baby girl age 11 weeks. Her 3 year old son is with her too. Joints ache but perhaps related to 4 children 14- 11 weeks. Updated Visit, March 27, 2022: Madhu is 36 years old and is doing well with her current maintain on low-dose prophylactic Lovenox. Doing well overall but is having some bleeding following oral iron therapy due to constipation. May qualify for IV iron which will help her. She hemorrhaged after her last and required transfusion. 33 weeks - scheduled to be induced at 39 weeks Updated Visit, January 30, 2022: Madhu returns at 25 weeks of her current . She remains on prophylactic dose Lovenox. Appreciate my colleagues opinion regarding her anticoagulation and she found Dr. Hamlin's opinion very helpful as well. We reviewed the recommendations together, but we will follow her preference to treatment. She prefers to stay on the 40 mg dose daily and will monitor for hemorrhage as she has done in the past. She is having trouble with hyperglycemia in and also has become mildly anemic although, this is most likely due to plasma expansion. I have checked iron studies and those are pending. She is otherwise getting along very well. 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 This is an unusual antibody profile and that her anticardiolipin IgG is so high yet her antibeta-2 GPI antibodies completely negative, as is her lupus anticoagulant panel. In any case I do think that this is a risk factor for her stroke as well as for recurrent loss. The fact that she has had a stroke and also had 1 late loss classifies her as having the antiphospholipid syndrome. Though she has done well on at least one while on Lovenox the standard of care would be to have her on both Lovenox and low-dose aspirin. She is somewhat hesitant to take aspirin as she has had some intolerance before, but I encouraged her to consider 81 mg of daily aspirin. While 1 can make an argument for full dose anticoagulation during because of her previous stroke, given that she is also on aspirin I would recommend that we simply at this point increase her Lovenox dose to 80 mg daily. However in the period I would increase to a therapeutic range of at least 80 mg twice daily. She has not had antiphospholipid antibody testing since June 2019, and I would recommend repeating an antibody panel at this time. I have put in a standing order for lupus anticoagulant testing. (Earl, 08/2021) Updated Visit, August 01, 2021: Doing well overall and has resolved some of her symptoms. No additional stroke like symptoms. Still and will maintain lovenox until she is finished. Has recurring UTI with pseudomonas - having mild symptoms now. Hair is dry and has patches Updated Visit, December 23, 2020: Father at the End of September 2020 so she's had a rough few months. He was 73 and had a colorectal cancer. Mother also had colon cancer and at age 69. Both lived in [facility] but she was adopted. She was not able to see ID in October and will be seeing Dr. Baugh next week. Also will have her see Dr. Hamlin for her clotting disorder and make any other recommendations to optimize her treatment. Updated Visit, October 08, 2020: Telephone only Received call from pt stating she was seen in [facility] ER for numbness in her chest, throat, and extremities, and sob which has been worsening over the last week. We arranged a telephone visit for her to review questions with me. Madhu Rendon is a 34 year old female seen for Hypercoagulable state and recent concerns and symptoms that required her to be seen at [facility] ER. She went to the ER with Gradual worsening of breathing after progressive tingling of fingers and legs. She currently remains very fatigued even though she is sleeping well. Now recalls that before her stroke she remembers having a bull's eye rash and was seen with severe headaches in [place], [place] - was found to have a stroke in 2016. Updated Visit, May 05, 2020: Madhu is 34 years old and returns for routine check in for chronic anticoagulation of her hypercoagulable disorder that presented with a CVA approximately 2018. Full work-up has revealed some low-level anticardiolipin antibodies in an indeterminate range, but given her's symptoms and thrombotic event her neurologist and I feel that it be appropriate to at least put her on prophylactic dosing of anticoagulation. She is currently on Lovenox because she is still breast feeding her 4-month-old son. Recently she reports that she had numbness preceding a root canal and was sent to [facility] for MRI which was negative but non-contrasted. She like her chemistries checked because she's had hyponatremia before. She also complains that even though she is still breast feeding, she is still gaining weight hasn't been eating healthy as food. She also has started vaginal spotting and has started Her menses but is not heavy at this time. Fatigue is pronounced but isn't anemic today. All labs reviewed. Updated Visit, February 02, 2020: Madhu is 34 yo and delivered a healthy baby boy who is now 3 weeks old. She bled after and was down to 8.5 but didn't need transfusions. She hemorrhaged with each of her prior 2 pregnancies. Daughter is Autistic 51/2. Her son who is 12 had Tics when he was 6. Discussed briefly the risks of further with requirements of anticoagulation. Labs appear to be stable Is possibly getting Mirena but is still contemplating future . I asked her to discuss her risk with Dr. Herrmann. She will need to be on lovenox until she stops breast feeding. After this remains the question of resuming plavix or consider DOAC. Initial Visit, May 19, 2019: Madhu Rendon presents today at the request of Dr. Herrmann for oncology evaluation. She is a 33 year old female who is currently on Plavix for CVA prophylaxis and is been referred for opinion regarding changing over to Lovenox due to her underlying findings of antiphospholipid antibodies. Her history goes back to January 2016 in [facility] where she had persisting headaches and slurred speech followed by lower extremity weakness. This took a few months to resolve and she is back to her normal state of being but some point in time during her her next she was seen by Dr. Humera Hyde in [place] as well and was found to have an antiphospholipid antibody. I believe this is after a spontaneous . She had a bleeding on aspirin but has been stable on Plavix. In the absence of an active measurable thrombosis she was not given full dose attic regulation. The thinking that perhaps the CVA symptoms were mediated by a transient ischemic event precipitated by hormone therapy. Nevertheless now that she has been identified antiphospholipid antibody which she believes to be anticardiolipin antibody she will require some form of prophylaxis. REVIEW OF SYSTEMS Per HPI and otherwise negative by full review of organ systems. ' ECOG PERFORMANCE STATUS: 0 PHYSICAL EXAMINATION: Vitals: BP 128/81 Pulse 91 Temp (Src) 97.1 (Temporal) Resp 16 Ht 5' 6.024 (1.68m) Wt 226 lb 6.6 oz (102.7kg) SpO2 100% LMP 12/22/2023 BMI 36.52 kg/(m^2). Body surface area is 2.19 meters squared. Exam limited to gross visualization where appropriate. Gen.: This is an age-appropriate patient in no acute distress. Head: Appears atraumatic with no visible lesions. Eyes: Pupils equally round and reactive to light, extraocular muscles are intact. Neck: Supple. Respiratory: Appears to be respiring comfortably. Neurologic: Nonfocal to gross visualization. Alert and oriented 3. Psychiatric: No evidence of inappropriate anxiety or depression. Skin: Visible areas of skin without rash, lesions, wounds or petechiae. ALLERGIES: ALLERGIES Allergen Reactions Ciprofloxacin Other: See Comments, Unknown Dizziness, weakness sweating Ciprofloxacin-Fluoc* Other: See Comments Dizziness, weakness sweating Lactose GI Upset Diarrhea Seasonal Allergies GI Upset, Other: See Comments Lactalbumin Unknown, GI Upset Crampy and gassy Milk Other: See Comments Crampy and gassy Diarrhea Other reaction(s): GI Upset Crampy and gassy Milk Containing Pro* Other: See Comments Crampy and gassy Diarrhea Other reaction(s): GI Upset Crampy and gassy MEDICATIONS: famotidine (PEPCID) 20 mg tablet Take 1 tablet by mouth once daily. To take prior to infusion enoxaparin (LOVENOX) 40 mg/0.4 mL INJECT THE CONTENTS OF ONE SYRINGE (0.4 ML) SUBCUTANEOUSLY EVERY 24 HOURS metFORMIN ER (GLUCOPHAGE XR) 500 mg 24 hr tablet multivitamin tablet Take 1 tablet by mouth once daily. LABORATORY VALUES: WBC (k/uL) Date Value 01/02/2024 7.85 RBC (m/uL) Date Value 01/02/2024 4.41 Hemoglobin (g/dL) Date Value 01/02/2024 13.6 Hematocrit (%) Date Value 01/02/2024 38.5 MCV (fL) Date Value 01/02/2024 87.3 MCH (pg) Date Value 01/02/2024 30.8 MCHC (g/dL) Date Value 01/02/2024 35.3 RDW-CV (%) Date Value 01/02/2024 13.3 Platelet Count (k/uL) Date Value 01/02/2024 330 MPV (fL) Date Value 01/02/2024 9.8 Glucose (mg/dL) Date Value 01/02/2024 84 BUN (mg/dL) Date Value 01/02/2024 8 Creatinine (mg/dL) Date Value 01/02/2024 0.84 Sodium (mmol/L) Date Value 01/02/2024 136 Potassium (mmol/L) Date Value 01/02/2024 3.5 (L) Chloride (mmol/L) Date Value 01/02/2024 100 CO2 (mmol/L) Date Value 01/02/2024 24 Protein, Total (g/dL) Date Value 01/02/2024 7.3 Albumin (g/dL) Date Value 01/02/2024 4.9 Calcium, Total (mg/dL) Date Value 01/02/2024 9.9 Alkaline Phosphatase (U/L) Date Value 01/02/2024 71 Bilirubin, Total (mg/dL) Date Value 01/02/2024 0.3 AST (U/L) Date Value 01/02/2024 18 ALT (U/L) Date Value 01/02/2024 22 DIAGNOSIS: (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) (primary encounter diagnosis) Plan: THYROID STIMULATING HORMONE, VITAMIN D 25 HYDROXY, COMPLETE BLOOD COUNT AND DIFFERENTIAL, COMPREHENSIVE METABOLIC PANEL, IRON AND TIBC, FERRITIN, VITAMIN B12, FOLATE, SERUM, COMPLETE BLOOD COUNT AND DIFFERENTIAL, COMPREHENSIVE METABOLIC PANEL (E55.9) Vitamin D deficiency Plan: THYROID STIMULATING HORMONE, VITAMIN D 25 HYDROXY, COMPLETE BLOOD COUNT AND DIFFERENTIAL, COMPREHENSIVE METABOLIC PANEL, IRON AND TIBC, FERRITIN, VITAMIN B12, FOLATE, SERUM, COMPLETE BLOOD COUNT AND DIFFERENTIAL, COMPREHENSIVE METABOLIC PANEL (R53.81, R53.83) Malaise and fatigue Plan: THYROID STIMULATING HORMONE, VITAMIN D 25 HYDROXY, COMPLETE BLOOD COUNT AND DIFFERENTIAL, COMPREHENSIVE METABOLIC PANEL, IRON AND TIBC, FERRITIN, VITAMIN B12, FOLATE, SERUM, COMPLETE BLOOD COUNT AND DIFFERENTIAL, COMPREHENSIVE METABOLIC PANEL PAST MEDICAL HISTORY No date: Antiphospholipid antibody syndrome (HCC) No date: Asthma No date: Bilateral ovarian cysts No date: Blood in stool No date: Clear vaginal discharge No date: Complex cyst of right ovary No date: Dysuria during No date: Fluid imbalance No date: History of miscarriage, currently No date: Hypercoagulable state (HCC) 03/27/2022: Iron deficiency anemia of 03/27/2022: Iron deficiency anemia secondary to blood loss (chronic) No date: Kidney stones Comment: early No date: Missed menses No date: Nausea and vomiting No date: Rectal bleeding PAST SURGICAL HISTORY No date: BREAST BIOPSY HX Comment: Negative No date: EXTRACTION, ERUPTED TOOTH OR EXPOSED ROOT (ELEVATION AND/OR FORCEPS REMOVAL) Social History Tobacco Use Smoking status: Never Smokeless tobacco: Never Vaping Use Vaping status: Never Used Substance Use Topics Alcohol use: No Drug use: No FAMILY HISTORY Adopted: Yes Problem Relation Age of Onset Stroke Father Diabetes Father Type 2 Multiple Sclerosis Maternal Aunt Heart Maternal Grandfather other (Other) Daughter sacral dimple, frbrous tisse of tail bone other (Other) Mother Spinabifida Diabetes Sister type 2 Diabetes Paternal Grandmother type 2 Diabetes Paternal Grandfather type 2 I spent a total of 20 minutes on the date of the service which included preparing to see the patient, [id number] patient care, completing clinical documentation, performing a medically appropriate examination, counseling and educating the patient/family/caregiver, ordering medications, tests, or procedures, independently interpreting results (not separately reported), communicating results to the patient/family/caregiver, and care coordination (not separately reported). Salvador Calix MD, CPE Hematology [facility] Oncology Services Provided at: [place], [place] Scribe Attestation: This note was scribed by Nathaly Florence on January 02, 2024 under the direction and supervision of Dr. Salvador Calix. I attest that all of the information documented is correct to the best of my knowledge. Provider Attestation: I, Salvador Calix MD, attest that all information documented by the above scribe is correct, and was supervised by me and under my direction. CC: MD Wilton Day, [address] [place] [address] Humaira Gaviria MD [address] [facility] [id number] MD Cosmo Kingston MD Michael Blank, MD documented in this encounter [facility] 01-02-2024 Note HNO ID: [id number] Author: SALVADOR CALIX MD Service: ? Author Type: Physician Type: Progress Notes Filed: 01/04/2024 12:54 Note Text: NAME: Madhu Rednon [facility] NO.: [id number] DATE OF SERVICE: January 02, 2024 (Levon) Some elements in this clinic note that are critical to medical decision making have been carefully reviewed and included from a prior clinic note dated: June 15, 2023 (Levon) Additional Clinicians involved in Madhu Rendon's care: Drs. Herrmann, Jorge Monge, Humaira Gaviria, Dr. Boothe CC: hypercoag state. ASSESSMENT: 38 year old woman presents with a prior history of CVA in 2016 and an antiphospholipid antibody that was identified much later in 2018. These were found in [place], [place]. I don't have access to these results. Patient believes that she has anticardiolipin antibodies but wasn't sure. She has been on Plavix for approximately year and a half and had bled heavily on aspirin preceding this. She currently has no evidence of active thrombosis. We had discussed the potential etiology of antiphospholipid antibodies in the context of her symptoms which preceded her diagnosis by approximately 2 years presenting as a CVA. At some point in time she had a vW disease workup but we don't have that specific data from prior workup. After discussion with her neurologist, Dr. Jorge Monge, we put her on prophylactic dose Lovenox throughout her prior but is now again and at 25 weeks. Had difficulty with associated diabetes. Recalls having had a target-like rash shortly before presenting to [place] in 2016 with headaches and was diagnosed with a CVA. - She saw Dr. Baugh but no relevant conclusion was made. She remains on Lovenox - still breast feeding. No clinical need to recheck her APL Ab or Cardiolipin Ab's as results will not change our treatment plan. PLAN: Triage to call iron results Continue Lovenox - patient prefers 40 mg (rather than rec 80mg) Encouraged her to reconsider Take B12 supplement in the form of a sublingual tablet RTC in 3 months Labs same day Vitamin D, TSH, Calcium with CMP ___ HPI: Updated Visit, January 02, 2024: Madhu returns today for a follow up. She reports a low grade fever and facial redness that is sore to the touch occurring every month since June for about a few days at a time. In October and November, she reports nerve pain and itching/burning skin as well. She is able to successfully treat with ice packs. She is unable to find a direct correlation between her symptoms although speculates it is a hormonal reaction. She denies spending significant time in the sun prior to her symptoms, although does mention she felt fatigued after a day outside. Workup for inflammatory Lupus has been negative in the past. She was seen in the ER in August for abdominal cramping, workup was unrevealing. She has also had right ear and sinus pain since January - MRI was negative. Numbness and vision changes occur rarely now. I encouraged her to continue supplemental B12 at home. Iron studies are pending - consider iron replacement if indicated. Updated Visit, June 15, 2023: Madhu returns today with her youngest two children. She is still breast feeding. Numbness and vision changes both have subsided, she still plans to see Dr. Monge soon. When she had a stroke in [place], she had symptoms up to a month before: uncontrollable headache, BP was elevated, knee stiffness, and blurry vision. Right facial drooping and difficulty speaking sent her to the hospital. She continues to take vitamins. Updated Visit, May 31, 2023: Virtual Visit Shadow over right eye and some numbness of her face. Feels like she's getting itchy under her skin - intermittent electric-shocks . Abdominal contractions that feel like labor but not low in the pelvis. Weight is unchanged and she is having trouble losing weight. Feels she has a lot of fullness in her neck/throat. Could not operate her video. Updated Visit, March 19, 2023: Virtual Visit: Doing ok but is getting sick. Was not able to connect video. Vitamin D is low. Having trouble with blood sugars Baby and all kids doing well. Still breast feeding. Updated Visit, December 22, 2022: Virtual visit Had a few more bloody bowel movements after we spoke last time. But resolved more than a month ago. Labs are good - no need for iron . B12 is on the lower end of normal. Otherwise and I think unrelated - weak, urinating a lot and mouth is dry all the time for the past few days. Updated Visit, September 28, 2022: Virtual Visit Had blood with BM x2 - has had this before and stayed on Lovenox Hgb 13.1 @ [facility] Recommended ER if persisting bleeding but she would prefer to stay on Lovenox for now. Updated Visit, July 27, 2022: Madhu returns today an (more content not included)... [facility] 12-17-2023 Telephone encounter Note Pt updated and will follow up with PCP. Denies further questions, needs or concerns at this time for our provider. Naga Johnson RN [facility] 12-17-2023 Miscellaneous Notes Pt updated and will follow up with PCP. Denies further questions, needs or concerns at this time for our provider. Naga Johnson RN No - sounds like she has some infectious process going on - would rec PCP. Pt reports onset of low grade fever (99.7), on and off since 12/13/23. Feels flushed, at time like pins/needles in my extremities, and burning eyes. She is asking if this is a possible delayed reaction to 3rd dose of Iron rec'd 11/29/23? Pt had rec'd IV steroid/pepcid for mild reaction with 2nd dose. She reports her son also came home last week with fever >100 . She also states there is a good chance I may be again, I just haven't taken a test. Pt encouraged to test for verification. Pharm/Fely: possible delayed reaction to IV Iron 11/29/23? documented in this encounter [facility] 12-17-2023 Telephone encounter Note No - sounds like she has some infectious process going on - would rec PCP. [facility] 12-17-2023 Telephone encounter Note Pt reports onset of low grade fever (99.7), on and off since 12/13/23. Feels flushed, at time like pins/needles in my extremities, and burning eyes. She is asking if this is a possible delayed reaction to 3rd dose of Iron rec'd 11/29/23? Pt had rec'd IV steroid/pepcid for mild reaction with 2nd dose. She reports her son also came home last week with fever >100 . She also states there is a good chance I may be again, I just haven't taken a test. Pt encouraged to test for verification. Pharm/Fely: possible delayed reaction to IV Iron 11/29/23? [facility] 11-29-2023 Note HNO ID: [id number] Author: CHANTAL GUTIERREZ RN Service: ? Author Type: Registered Nurse Type: Progress Notes Filed: 11/29/2023 16:28 Note Text: Y Y [facility] 11-29-2023 History of Presen t illness Narrative Y Y documented in this encounter [facility] 11-29-2023 Telephone encounter Note MARSHA Connell, treatment aware of changes. [facility] 11-29-2023 Miscellaneous Notes MARSHA Connell, treatment aware of changes. Spoke with pt. She will obtain Pepcid OTC from our retail pharmacy on arrival to take (1) 20 mg tablet. She is aware and agreeable to IV steroid for infusion as well. Naga Johnson RN A one time dose of dexamethasone is safe when . I added 8mg to the plan for your review. Please adjust dose if necessary. Thanks, Raissa Aly RPh Famotidine is safe when . Do we want to administer the venofer slower? What rate? Thanks, Raissa Aly RPh Called and discussed with pt. She is and cannot take Benadryl. She is reluctant to take Pepcid. Attempted to call retail, infusion pharmacy and [facility], no answer, to ask safety of pepcid in . Pharm/Fely: please advise Naga Johnson RN Perry Isidro - sometimes it depends on how quickly the infusion was given. Also, people do develop allergies to iron. Maybe we try the next iron with pepcid 20 mg by mouth - take one at home before coming in and take a benadryl 25 mg by mouth in the lobby before you get your infusion. If it happens again, we may have to choose a different iron formulation. documented in this encounter [facility] 11-29-2023 Telephone encounter Note Spoke with pt. She will obtain Pepcid OTC from our retail pharmacy on arrival to take (1) 20 mg tablet. She is aware and agreeable to IV steroid for infusion as well. Naga Johnson RN [facility] 11-29-2023 Telephone encounter Note A one time dose of dexamethasone is safe when . I added 8mg to the plan for your review. Please adjust dose if necessary. Thanks, Raissa Aly RPh [facility] Work Phone: 11-29-2023 Telephone encounter Note Famotidine is safe when . Do we want to administer the venofer slower? What rate? Thanks, Raissa Aly RPh [facility] 11-29-2023 Telephone encounter Note Called and discussed with pt. She is and cannot take Benadryl. She is reluctant to take Pepcid. Attempted to call retail, infusion pharmacy and [facility], no answer, to ask safety of pepcid in . Pharm/Fely: please advise Naga Johnson RN [facility] 11-29-2023 Telephone encounter Note Hi Madhu - sometimes it depends on how quickly the infusion was given. Also, people do develop allergies to iron. Maybe we try the next iron with pepcid 20 mg by mouth - take one at home before coming in and take a benadryl 25 mg by mouth in the lobby before you get your infusion. If it happens again, we may have to choose a different iron formulation. [facility] 11-15-2023 Note HNO ID: [id number] Author: JUNE LOMBARDO RN Service: ? Author Type: Registered Nurse Type: Progress Notes Filed: 11/15/2023 16:30 Note Text: Pt reports having nausea and lightheadedness this morning. She has seen her pcp regarding these symptoms and is being worked up to figure out the cause. [facility] 11-15-2023 History of Presen t illness Narrative Pt reports having nausea and lightheadedness this morning. She has seen her pcp regarding these symptoms and is being worked up to figure out the cause. documented in this encounter [facility] 11-15-2023 Telephone encounter Note 1st report of treatment-Non oncology regimen (Venofer) Patient holds Medicaid coverage and there is no available FA at this time. [facility] 11-15-2023 Miscellaneous Notes 1st report of treatment-Non oncology regimen (Venofer) Patient holds Medicaid coverage and there is no available FA at this time. documented in this encounter [facility] 11-09-2023 Hospital Discharg e instructions Patient Education 11/09/2023 15:56:11 Preventing Hypoglycemia Preventing Hypoglycemia Hypoglycemia occurs when the level of sugar (glucose) in the blood is too low. Hypoglycemia can happen in people who do or do not have diabetes (diabetes mellitus). It can develop quickly, and it can be a medical emergency. For most people with diabetes, a blood glucose level below 70 mg/dL (3.9 mmol/L) is considered hypoglycemia. Glucose is a type of sugar that provides the body's main source of energy. Certain hormones (insulin and glucagon) control the level of glucose in the blood. Insulin lowers blood glucose, and glucagon increases blood glucose. Hypoglycemia can result from having too much insulin in the bloodstream, or from not eating enough food that contains glucose. Your risk for hypoglycemia is higher: If you take insulin or diabetes medicines to help lower your blood glucose or to help your body make more insulin. If you skip or delay a meal or snack. If you are ill. During and after exercise. You can prevent hypoglycemia by working with your health care provider to adjust your meal plan as needed and by taking other precautions. How can hypoglycemia affect me? Mild symptoms Mild hypoglycemia may not cause any symptoms. If you do have symptoms, they may include: Hunger. Sweating and feeling clammy. Dizziness or feeling light-headed. Sleepiness or restless sleep. Nausea. Increased heart rate. Headache. Blurry vision. Mood changes, including irritability or anxiety. Tingling or numbness around the mouth, lips, or tongue. If mild hypoglycemia is not recognized and treated, it can quickly become moderate or severe hypoglycemia. Moderate symptoms Moderate hypoglycemia can cause: Confusion and poor judgment. Behavior changes. Weakness. Irregular heartbeat. A change in coordination. Severe symptoms Severe hypoglycemia is a medical emergency. It can cause: Fainting. Seizures. Loss of consciousness (coma). . What nutrition changes can be made? Work with your health care provider or dietitian to make a healthy meal plan that is right for you. Follow your meal plan carefully. Eat meals at regular times. If recommended by your health care provider, have snacks between meals. Donot skip or delay meals or snacks. You can be at risk for hypoglycemia if you are not getting enough carbohydrates. What lifestyle changes can be made? Work closely with your health care provider to manage your blood glucose. Make sure you know: ?Your goal blood glucose levels. ?How and when to check your blood glucose. ?The symptoms of hypoglycemia. It is important to treat hypoglycemia right away to keep it from becoming severe. Do not drink alcohol on an empty stomach. When you are ill, check your blood glucose more often than usual. Make a sick day plan in advance with your health care provider. Follow this plan whenever you cannot eat or drink normally. Always check your blood glucose before, during, and after exercise. How is this treated? This condition can often be treated by immediately eating or drinking something that contains sugar with 15 grams of fast-acting carbohydrate, such as: 4 oz (120 mL) of fruit juice. 4 oz (120 mL) of regular soda (not diet soda). Several pieces of hard candy. Check food labels to find out how many pieces to eat for 15 grams. 1 Tbsp (15 mL) of sugar or honey. 4 glucose tablets. 1 tube of glucose gel. Treating hypoglycemia if you have diabetes If you are alert and able to swallow safely, follow the 15:15 rule: Take 15 grams of a fast-acting carbohydrate. Talk with your health care provider about how much you should take. Fast-acting options include: ?Glucose tablets (take 4 tablets). ?Several pieces of hard candy. Check food labels to find out how many pieces to eat for 15 grams. ?4 oz (120 mL) of fruit juice. ?4 oz (120 mL) of regular soda (not diet soda). ?1 Tbsp (15 mL) of sugar or honey. ?1 tube of glucose gel. Check your blood glucose 15 minutes after you take the carbohydrate. If the repeat blood glucose level is still at or below 70 mg/dL (3.9 mmol/L), take 15 grams of a carbohydrate again. If your blood glucose level does not increase above 70 mg/dL (3.9 mmol/L) after 3 tries, seek emergency medical care. After your blood glucose level returns to normal, eat a meal or a snack within 1 hour. Treating severe hypoglycemia Severe hypoglycemia is when your blood glucose level is below 54 mg/dL (3 mmol/L). Severe hypoglycemia is a medical emergency. Get medical help right away. If you have severe hypoglycemia and you cannot eat or drink, you may need glucagon. A family member or close friend should learn how to check your blood glucose and how to give you glucagon. Ask your health care provider if you need to have an emergency glucagon kit available. Severe hypoglycemia may need to be treated in a hospital. The treatment may include getting glucose through an IV. You may also need treatment for the cause of your hypoglycemia. Where to find more information [place] [employer]: www.diabetes.org National [place] of Diabetes and Digestive and Kidney Diseases: www.niddk.nih.gov Association of Diabetes Care & Education Specialists: www.diabeteseducator.org Contact a health care provider if: You have problems keeping your blood glucose in your target range. You have frequent episodes of hypoglycemia. Get help right away if: You continue to have hypoglycemia symptoms after eating or drinking something containing glucose. Your blood glucose level is below 54 mg/dL (3 mmol/L). You faint. You have a seizure. These symptoms may represent a serious problem that is an emergency. Do not wait to see if the symptoms will go away. Get medical help right away. Call your local emergency services (911 in the [place] Do not drive yourself to the hospital. Summary Know the symptoms of hypoglycemia and when you are at risk for it, such as during exercise or when you are sick. Check your blood glucose often when you are at risk for hypoglycemia. Hypoglycemia can develop quickly, and it can be dangerous if it is not treated right away. If you have a history of severe hypoglycemia, make sure your family or a close friend knows how to use your glucagon kit. Make sure you know how to treat hypoglycemia. Keep a fast-acting carbohydrate option available when you may be at risk for hypoglycemia. This information is not intended to replace advice given to you by your health care provider. Make sure you discuss any questions you have with your health care provider. Document Revised: 03/17/2021 Document Reviewed: 03/17/2021 [employer] Patient Education 2022 [employer]. 11/09/2023 15:56:06 Prediabetes Prediabetes Prediabetes is when your blood sugar (blood glucose) level is higher than normal but not high enough for you to be diagnosed with type 2 diabetes. Having prediabetes puts you at risk for developing type 2 diabetes (type 2 diabetes mellitus). With certain lifestyle changes, you may be able to prevent or delay the onset of type 2 diabetes. This is important because type 2 diabetes can lead to serious complications, such as: Heart disease. Stroke. Blindness. Kidney disease. Depression. Poor circulation in the feet and legs. In severe cases, this could lead to surgical removal of a leg (amputation). What are the causes? The exact cause of prediabetes is not known. It may result from insulin resistance. Insulin resistance develops when cells in the body do not respond properly to insulin that the body makes. This can cause excess glucose to build up in the blood. High blood glucose (hyperglycemia) can develop. What increases the risk? The following factors may make you more likely to develop this condition: You have a family member with type 2 diabetes. You are older than 45 years. You had a temporary form of diabetes during a (gestational diabetes). You had polycystic ovary syndrome (PCOS). You are overweight or obese. You are inactive (sedentary). You have a history of heart disease, including problems with cholesterol levels, high levels of blood fats, or high blood pressure. What are the signs or symptoms? You may have no symptoms. If you do have symptoms, they may include: Increased hunger. Increased thirst. Increased urination. Vision changes, such as blurry vision. Tiredness (fatigue). How is this diagnosed? This condition can be diagnosed with blood tests. Your blood glucose may be checked with one or more of the following tests: A fasting blood glucose (FBG) test. You will not be allowed to eat (you will fast) for at least 8 hours before a blood sample is taken. An A1C blood test (hemoglobin A1C). This test provides information about blood glucose levels over the previous 2?3 months. An oral glucose tolerance test (OGTT). This test measures your blood glucose at two points in time: ?After fasting. This is your baseline level. ?Two hours after you drink a beverage that contains glucose. You may be diagnosed with prediabetes if: Your FBG is 100?125 mg/dL (5.6 6.9 mmol/L). Your A1C level is 5.7?6.4% (39 46 mmol/mol). Your OGTT result is 140?199 mg/dL (7.8 11 mmol/L). These blood tests may be repeated to confirm your diagnosis. How is this treated? Treatment may include dietary and lifestyle changes to help lower your blood glucose and prevent type 2 diabetes from developing. In some cases, medicine may be prescribed to help lower the risk of type 2 diabetes. Follow these instructions at home: Nutrition Follow a healthy meal plan. This includes eating lean proteins, whole grains, legumes, fresh fruits and vegetables, low-fat dairy products, and healthy fats. Follow instructions from your health care provider about eating or drinking restrictions. Meet with a dietitian to create a healthy eating plan that is right for you. Lifestyle Do moderate-intensity exercise for at least 30 minutes a day on 5 or more days each week, or as told by your health care provider. A mix of activities may be best, such as: ?Brisk walking, swimming, biking, and weight lifting. Lose weight as told by your health care provider. Losing 5 7% of your body weight can reverse insulin resistance. Do not drink alcohol if: ?Your health care provider tells you not to drink. ?You are , may be , or are planning to become . If you drink alcohol: ?Limit how much you use to: ?0 1 drink a day for women. ?0 2 drinks a day for men. ?Be aware of how much alcohol is in your drink. In the [place] one drink equals one 12 oz bottle of beer (355 mL), one 5 oz glass of wine (148 mL), or one 1 oz glass of hard liquor (44 mL). General instructions Take irti-vei-jbibcrv and prescription medicines only as told by your health care provider. You may be prescribed medicines that help lower the risk of type 2 diabetes. Do not use any products that contain nicotine or tobacco, such as cigarettes, e-cigarettes, and chewing tobacco. If you need help quitting, ask your health care provider. Keep all follow-up visits. This is important. Where to find more information [place] [employer]: www.diabetes.org Academy of Nutrition and Dietetics: www.eatright.org [place] [employer]: www.heart.org Contact a health care provider if: You have any of these symptoms: ?Increased hunger. ?Increased urination. ?Increased thirst. ?Fatigue. ?Vision changes, such as blurry vision. Get help right away if you: Have shortness of breath. Feel confused. Vomit or feel like you may vomit. Summary Prediabetes is when your blood sugar (blood glucose)level is higher than normal but not high enough for you to be diagnosed with type 2 diabetes. Having prediabetes puts you at risk for developing type 2 diabetes (type 2 diabetes mellitus). Make lifestyle changes such as eating a healthy diet and exercising regularly to help prevent diabetes. Lose weight as told by your health care provider. This information is not intended to replace advice given to you by your health care provider. Make sure you discuss any questions you have with your health care provider. Document Revised: 07/15/2020 Document Reviewed: 07/15/2020 [employer] Patient Education 2022 [employer]. 11/09/2023 15:56:02 Palpitations Palpitations Palpitations are feelings that your heartbeat is irregular or is faster than normal. It may feel like your heart is fluttering or skipping a beat. Palpitations may be caused by many things, including smoking, caffeine, alcohol, stress, and certain medicines or drugs. Most causes of palpitations are not serious. However, some palpitations can be a sign of a serious problem. Further tests and a thorough medical history will be done to find the cause of your palpitations. Your provider may order tests such as an ECG, labs, an echocardiogram, or an ambulatory continuous ECG monitor. Follow these instructions at home: Pay attention to any changes in your symptoms. Let your health care provider know about them. Take these actions to help manage your symptoms: Eating and drinking Follow instructions from your health care provider about eating or drinking restrictions. You may need to avoid foods and drinks that may cause palpitations. These may include: Caffeinated coffee, tea, soft drinks, and energy drinks. Chocolate. Alcohol. Diet pills. Lifestyle Take steps to reduce your stress and anxiety. Things that can help you relax include: ?Yoga. ?Mind-body activities, such as deep breathing, meditation, or using words and images to create positive thoughts (guided imagery). ?Physical activity, such as swimming, jogging, or walking. Tell your health care provider if your palpitations increase with activity. If you have chest pain or shortness of breath with activity, do not continue the activity until you are seen by your health care provider. ?Biofeedback. This is a method that helps you learn to use your mind to control things in your body, such as your heartbeat. Get plenty of rest and sleep. Keep a regular bed time. Do not use drugs, including cocaine or ecstasy. Do not use marijuana. Do not use any products that contain nicotine or tobacco. These products include cigarettes, chewing tobacco, and vaping devices, such as e-cigarettes. If you need help quitting, ask your health care provider. General instructions Take hvyl-uqq-kfkmqdf and prescription medicines only as told by your health care provider. Keep all follow-up visits. This is important. These may include visits for further testing if palpitations do not go away or get worse. Contact a health care provider if: You continue to have a fast or irregular heartbeat for a long period of time. You notice that your palpitations occur more often. Get help right away if: You have chest pain or shortness of breath. You have a severe headache. You feel dizzy or you faint. These symptoms may represent a serious problem that is an emergency. Do not wait to see if the symptoms will go away. Get medical help right away. Call your local emergency services (911 in the [place] Do not drive yourself to the hospital. Summary Palpitations are feelings that your heartbeat is irregular or is faster than normal. It may feel like your heart is fluttering or skipping a beat. Palpitations may be caused by many things, including smoking, caffeine, alcohol, stress, certain medicines, and drugs. Further tests and a thorough medical history may be done to find the cause of your palpitations. Get help right away if you faint or have chest pain, shortness of breath, severe headache, or dizziness. This information is not intended to replace advice given to you by your health care provider. Make sure you discuss any questions you have with your health care provider. Document Revised: 09/07/2021 Document Reviewed: 09/07/2021 [employer] Patient Education 2022 [employer]. 11/09/2023 15:55:58 Fatigue Fatigue If you have fatigue, you feel tired all the time and have a lack of energy or a lack of motivation. Fatigue may make it difficult to start or complete tasks because of exhaustion. Occasional or mild fatigue is often a normal response to activity or life. However, long-term (chronic) or extreme fatigue may be a symptom of a medical condition such as: Depression. Not having enough red blood cells or hemoglobin in the blood (anemia). A problem with a small gland located in the lower front part of the neck (thyroid disorder). Rheumatologic conditions. These are problems related to the body's defense system (immune system). Infections, especially certain viral infections. Fatigue can also lead to negative health outcomes over time. Follow these instructions at home: Medicines Take hoge-kje-navrqwv and prescription medicines only as told by your health care provider. Take a multivitamin if told by your health care provider. Do not use herbal or dietary supplements unless they are approved by your health care provider. Eating and drinking Avoid heavy meals in the evening. Eat a well-balanced diet, which includes lean proteins, whole grains, plenty of fruits and vegetables, and low-fat dairy products. Avoid eating or drinking too many products with caffeine in them. Avoid alcohol. Drink enough fluid to keep your urine pale yellow. Activity Exercise regularly, as told by your health care provider. Use or practice techniques to help you relax, such as yoga, gerald chi, meditation, or massage therapy. Lifestyle Change situations that cause you stress. Try to keep your work and personal schedules in balance. Do not use recreational or illegal drugs. General instructions Monitor your fatigue for any changes. Go to bed and get up at the same time every day. Avoid fatigue by pacing yourself during the day and getting enough sleep at night. Maintain a healthy weight. Contact a health care provider if: Your fatigue does not get better. You have a fever. You suddenly lose or gain weight. You have headaches. You have trouble falling asleep or sleeping through the night. You feel angry, guilty, anxious, or sad. You have swelling in your legs or another part of your body. Get help right away if: You feel confused, feel like you might faint, or faint. Your vision is blurry or you have a severe headache. You have severe pain in your abdomen, your back, or the area between your waist and hips (pelvis). You have chest pain, shortness of breath, or an irregular or fast heartbeat. You are unable to urinate, or you urinate less than normal. You have abnormal bleeding from the rectum, nose, lungs, nipples, or, if you are female, the vagina. You vomit blood. You have thoughts about hurting yourself or others. These symptoms may be an emergency. Get help right away. Call 911. Do not wait to see if the symptoms will go away. Do not drive yourself to the hospital. Get help right away if you feel like you may hurt yourself or others, or have thoughts about taking your own life. Go to your nearest emergency room or: Call 911. Call the National Suicide Prevention Lifeline at or 147. This is open 24 hours a day. Text the Crisis Text Line at 994862. Summary If you have fatigue, you feel tired all the time and have a lack of energy or a lack of motivation. Fatigue may make it difficult to start or complete tasks because of exhaustion. Long-term (chronic) or extreme fatigue may be a symptom of a medical condition. Exercise regularly, as told by your health care provider. Change situations that cause you stress. Try to keep your work and personal schedules in balance. This information is not intended to replace advice given to you by your health care provider. Make sure you discuss any questions you have with your health care provider. Document Revised: 02/06/2022 Document Reviewed: 02/06/2022 [employer] Patient Education 2022 [employer]. Follow Up Care 11/08/2023 11:31:43 With:PRAVEEN RESENDEZ FAARAÚL, CHRIS Perez, PED Address: [address], [place] [address]- When: Unknown [facility] 11-09-2023 Note Patient Education Emergency Medicine Palpitations Palpitations are feelings that your heartbeat is irregular or is faster than normal. It may feel like your heart is fluttering or skipping a beat. Palpitations may be caused by many things, including smoking, caffeine, alcohol, stress, and certain medicines or drugs. Most causes of palpitations are not serious. However, some palpitations can be a sign of a serious problem. Further tests and a thorough medical history will be done to find the cause of your palpitations. Your provider may order tests such as an ECG, labs, an echocardiogram, or an ambulatory continuous ECG monitor. Follow these instructions at home: Pay attention to any changes in your symptoms. Let your health care provider know about them. Take these actions to help manage your symptoms: Eating and drinking Follow instructions from your health care provider about eating or drinking restrictions. You may need to avoid foods and drinks that may cause palpitations. These may include: ? Caffeinated coffee, tea, soft drinks, and energy drinks. ? Chocolate. ? Alcohol. ? Diet pills. Lifestyle ? Take steps to reduce your stress and anxiety. Things that can help you relax include: ? Yoga. ? Mind-body activities, such as deep breathing, meditation, or using words and images to create positive thoughts (guided imagery). ? Physical activity, such as swimming, jogging, or walking. Tell your health care provider if your palpitations increase with activity. If you have chest pain or shortness of breath with activity, do not continue the activity until you are seen by your health care provider. ? Biofeedback. This is a method that helps you learn to use your mind to control things in your body, such as your heartbeat. ? Get plenty of rest and sleep. Keep a regular bed time. ? Do not use drugs, including cocaine or ecstasy. Do not use marijuana. ? Do not use any products that contain nicotine or tobacco. These products include cigarettes, chewing tobacco, and vaping devices, such as e-cigarettes. If you need help quitting, ask your health care provider. General instructions ? Take vkmx-egy-mdumthu and prescription medicines only as told by your health care provider. ? Keep all follow-up visits. This is important. These may include visits for further testing if palpitations do not go away or get worse. Contact a health care provider if: ? You continue to have a fast or irregular heartbeat for a long period of time. ? You notice that your palpitations occur more often. Get help right away if: ? You have chest pain or shortness of breath. ? You have a severe headache. ? You feel dizzy or you faint. These symptoms may represent a serious problem that is an emergency. Do not wait to see if the symptoms will go away. Get medical help right away. Call your local emergency services (911 in the [place] Do not drive yourself to the hospital. Summary ? Palpitations are feelings that your heartbeat is irregular or is faster than normal. It may feel like your heart is fluttering or skipping a beat. ? Palpitations may be caused by many things, including smoking, caffeine, alcohol, stress, certain medicines, and drugs. ? Further tests and a thorough medical history may be done to find the cause of your palpitations. ? Get help right away if you faint or have chest pain, shortness of breath, severe headache, or dizziness. This information is not intended to replace advice given to you by your health care provider. Make sure you discuss any questions you have with your health care provider. Document Revised: 09/07/2021 Document Reviewed: 09/07/2021 [employer] Patient Education ? 2022 [employer] Endocrinology Preventing Hypoglycemia Hypoglycemia occurs when the level of sugar (glucose) in the blood is too low. Hypoglycemia can happen in people who do or do not have diabetes (diabetes mellitus). It can develop quickly, and it can be a medical emergency. For most people with diabetes, a blood glucose level below 70 mg/dL (3.9 mmol/L) is considered hypoglycemia. Glucose is a type of sugar that provides the body's main source of energy. Certain hormones (insulin and glucagon) control the level of glucose in the blood. Insulin lowers blood glucose, and glucagon increases blood glucose. Hypoglycemia can result from having too much insulin in the bloodstream, or from not eating enough food that contains glucose. Your risk for hypoglycemia is higher: ? If you take insulin or diabetes medicines to help lower your blood glucose or to help your body make more insulin. ? If you skip or delay a meal or snack. ? If you are ill. ? During and after exercise. You can prevent hypoglycemia by working with your health care provider to adjust your meal plan as needed and by taking other precautions. How can hypoglycemia affect me? Mild symptoms Mild hypoglycemia may not (more content not included)... [facility] 11-09[facility]2023 Note HNO ID: [id number] Author: TAMIKO KRUEGER LSW Service: ? Author Type: Soaping Department Supervisor Type: Progress Notes Filed: 12/03/2023 16:01 Note Text: Patient appears on the [facility] Time Treatment List for a non-oncology treatment. No psychosocial assessment is indicated. KRISTOPHER Huerta Goals of Care Advance Directives are not on file. SIGNATURE: MACRINA Huerta PATIENT NAME: Madhu Rendon DATE: December 03, 2023 TIME: 4:00 PM PAGER/CONTACT #: [facility] 11-09-2023 History of Presen t illness Narrative Patient appears on the [facility] Time Treatment List for a non-oncology treatment. No psychosocial assessment is indicated. KRISTOPHER Huerta documented in this encounter [facility] 11-06-2023 Telephone encounter Note Pt informed of [employer]'s message and denies any questions, needs or concerns at this time. She will call PCP for additional workup of palpitations, should the IV iron not help, or they worsen. Discussed reasons for immediate evaluation; chest pain, shortness of breath, lightheadedness, dizziness, etc. Appointments verified. Naga Johnson RN [facility] 11-06-2023 Miscellaneous Notes Pt informed of [employer]'s message and denies any questions, needs or concerns at this time. She will call PCP for additional workup of palpitations, should the IV iron not help, or they worsen. Discussed reasons for immediate evaluation; chest pain, shortness of breath, lightheadedness, dizziness, etc. Appointments verified. Naga Johnson RN Thanks Brit - will forward to Naga. She can still take her oral iron but I don't think it is helping too much. I really can't explain the palpitations but anemia could cause the cold feeling and fatigue. The racing heart beat, palpitations (same thing) may be something else. The blood thinner can cause the feeling of cold but that is usually with coumadin (warfarin). I hope that helps - maybe giving you the iron infusions will get you feeling better. Dr. Kane Arana Patient has been scheduled for Venofer on 11/14, 11/21 and 11/28. Follow in in 8 weeks scheduled for 01/01. FELY: Patient has a couple questions. 1) Should she stop her oral iron that she takes once a day? 2) Since August, patient has had heart palpitations that she wanted to address with you. She states it started when she had per period. Her current symptoms include being ice cold, racing heart beat, sweaty and she's tired all day. Currently also stating she is on a blood thinner. Harjit Haskins Appointment tomorrow cancelled. Andres tried calling her this morning and was unable to get a hold of her. Will keep trying patient to schedule for Iron. Harjit Haskins ----- Message from Naga Johnson RN sent at 11/05/2023 11:53 AM EDT ----- ----- Message ----- From: Salvador Calix MD Sent: 11/05/2023 11:33 AM EDT To: [facility] Triage Pool; [facility] Clerical Pool Perry Isidro - looks like you need Iron again. Dr. Middleton Cancel her virtual set for 11/05 and 11/19 - infuse 3 doses weekly iron and then see her in 8 weeks in person - labs same day. Thanks! documented in this encounter [facility] 11-05-2023 Telephone encounter Note Thanks Brit - will forward to Naga. She can still take her oral iron but I don't think it is helping too much. I really can't explain the palpitations but anemia could cause the cold feeling and fatigue. The racing heart beat, palpitations (same thing) may be something else. The blood thinner can cause the feeling of cold but that is usually with coumadin (warfarin). I hope that helps - maybe giving you the iron infusions will get you feeling better. Best, Dr. Middleton [facility] 11-05-2023 Telephone encounter Note Patient has been scheduled for Venofer on 11/14, 11/21 and 11/28. Follow in in 8 weeks scheduled for 01/01. FELY: Patient has a couple questions. 1) Should she stop her oral iron that she takes once a day? 2) Since August, patient has had heart palpitations that she wanted to address with you. She states it started when she had per period. Her current symptoms include being ice cold, racing heart beat, sweaty and she's tired all day. Currently also stating she is on a blood thinner. Harjit Haskins [facility] 11-05-2023 Telephone encounter Note Appointment tomorrow cancelled. Andres tried calling her this morning and was unable to get a hold of her. Will keep trying patient to schedule for Iron. Harjit Haskins [facility] 11-05-2023 Telephone encounter Note ----- Message from Naga Johnson RN sent at 11/05/2023 11:53 AM EDT ----- ----- Message ----- From: Salvador Calix MD Sent: 11/05/2023 11:33 AM EDT To: [facility] Triage Pool; [facility] Clerical Pool Perry Isidro - looks like you need Iron again. Dr. Middleton Cancel her virtual set for 11/05 and 11/19 - infuse 3 doses weekly iron and then see her in 8 weeks in person - labs same day. Thanks! [facility] 10-23-2023 Hospital Discharg e instructions Patient Education 10/23/2023 17:12:54 Deviated Septum Deviated Septum The septum is the wall of firm tissue (cartilage) inside your nose that separates the hollow space (nasal cavity) between your nostrils. Normally, the septum is straight. It divides the nasal cavity into two parts. A deviated septum means this wall is not centered in the middle of the nasal cavity. A deviated septum can lead to stuffiness and other problems with the flow of air through your nose. It can also block your sinuses and prevent them from draining properly. Although rare, this can lead to repeated (chronic) sinus infections. Often, one side of the nose is affected more than the other. What are the causes? This condition may be caused by an injury to the face or nose, or a person may be born with the condition (congenital defect). What increases the risk? You are more likely to develop this condition if you participate in contact sports. What are the signs or symptoms? A mildly deviated septum may not cause any symptoms. You may notice stuffiness and congestion only when you have a cold. Common symptoms of a more serious deviated septum include: Difficulty breathing through the nose. Blockage in one or both sides of the nose. Constant nasal congestion or stuffy nose. Frequent nosebleeds. Headache or facial pain. Excess mucus at the back of the throat or nose (postnasal drip). Noisy breathing while sleeping. How is this diagnosed? This condition may be diagnosed based on: Your symptoms and a description of an injury. A physical exam of the outside and inside of your nose. Your health care provider may use an instrument to widen your nostril (nasal speculum) and a bright light to check the inside of your nose. You may be referred to a health care provider who specializes in ear, nose, and throat disorders (franchise broker, or ENT) for more tests and treatment. How is this treated? If your deviated septum is mild, you may not need treatment. However, you may need treatment: If you develop nasal congestion. Your health care provider may recommend decongestant, antihistamine, or topical steroid medicines. If the deviated septum leads to a sinus infection. You may be prescribed an antibiotic medicine to treat the infection. If you develop frequent sinus infections, which is uncommon, or have trouble breathing through your nose after using recommended medicines. You may need surgery to correct the deviated septum (septoplasty). Depending on the cause of your deviated septum, the procedure may be combined with sinus surgery or surgery to change the shape of your nose (rhinoplasty). Follow these instructions at home: Take obxq-fzd-jljhfjd and prescription medicines only as told by your health care provider. If you were prescribed an antibiotic, take it as told by your health care provider. Do not stop using the antibiotic even if you start to feel better. Perform nasal saline rinses, if told to do so by your health care provider. If you have trouble breathing through your nose at night, talk with your health care provider about ways to treat this. Contact a health care provider if: You have a painful sinus infection or a fever. You have sniffling, sneezing, or congestion that gets worse. You have changes in your vision. You have a severe headache that does not get better with treatment. You have symptoms that remain or get worse after treatment with antibiotics. You snore or sleep poorly. You have trouble breathing through your nose at night. Get help right away if: You have a nosebleed that does not stop after pressure has been applied for 10 minutes. Summary Having a deviated septum means that the wall that separates your nostrils is not centered and straight. A deviated septum can lead to stuffiness and other problems with the flow of air through your nose. A deviated septum may be caused by an injury to the face or nose, or a person may be born with the condition (congenital defect). If you develop chronic nasal congestion and stuffiness, or get frequent sinus infections due to a deviated septum, you may need to see a health care provider who specializes in ear, nose, and throat disorders (franchise broker, or ENT) for more tests and treatment. This information is not intended to replace advice given to you by your health care provider. Make sure you discuss any questions you have with your health care provider. Document Revised: 12/12/2021 Document Reviewed: 12/12/2021 [employer] Patient Education 2022 [employer] 10/23/2023 17:12:52 Nasal Polyps Nasal Polyps Nasal polyps are growths that form in the nose. Inflammation in the nose or sinus openings can lead to changes in the tissue (mucosa) that lines these areas. Long-term inflammation causes the mucosa to grow into a polyp filled with watery mucus. Nasal polyps look like moist, ochoa grapes in the nose. Nasal polyps are not cancer and they do not increase the risk of cancer. Nasal polyps can be small or large and usually form in both sides of the nose. Polyps can make it hard to breathe through your nose (nasal obstruction). What are the causes? The exact cause of nasal polyps is not known. What increases the risk? You are more likely to develop nasal polyps if you have: A family history of the condition. A disease that causes inflammation in your nose or sinuses. Another condition that affects your nose or sinuses, such as: ?Nasal allergies (allergic rhinitis). ?Long-term nasal obstruction (nonallergic rhinitis). ?Asthma. ?Nasal or sinus infection, especially fungal infection. You may also be more likely to develop this condition if you: Are male. Are older than 40 years. Have a sensitivity to aspirin or alcohol. Smoke. Have a disease passed down through families that causes increased production of thick mucus (cystic fibrosis). What are the signs or symptoms? Symptoms depend on the size of the polyps. Small polyps may cause few symptoms. When symptoms develop, they may include: Nasal obstruction. Decreased senses of smell and taste. Runny nose and the feeling of mucus going down the back of the throat (postnasal drip). Headache, face pain, or sinus pressure. Snoring. Frequent nasal or sinus infections. Itchy eyes. How is this diagnosed? Nasal polyps may be diagnosed based on your symptoms, your medical history, and a physical exam of the inside of your nose. You may also have tests, such as: Nasal endoscopy. A flexible tube that has a bright light (endoscope) may be used to check the inside of your nose. Skin or blood tests to find out if your polyps may be caused by allergies. Swabs of the mucus in your nose to test for inflammation or infection. Imaging studies such as a CT scan or MRI to see how large your polyps are and if any are in your sinuses. How is this treated? Small nasal polyps that are not causing symptoms may not need treatment. For large polyps that are causing symptoms, the goal of treatment is to reduce nasal obstruction and improve sinus drainage. Treatment may include: A medicine to reduce inflammation (steroid). This is usually the first treatment. You may have to take steroids for a short or long period of time. Short-term steroids are usually taken as pills. Long-term steroid treatment is usually in the form of nose drops or spray. Medicines to treat an underlying condition, such as allergies, asthma, or infection. Biologic medicines. These may be used for severe inflammation or if other medicines are not working. These medicines are usually given as injections or through an IV. Surgery. This may be needed to remove nasal polyps if medicine does not help. Follow these instructions at home: Medicines Take or use sbkq-hah-susvunr and prescription medicines only as told by your health care provider. These may include nose drops or nasal sprays. Use solutions to wash or rinse out the inside of your nose (nasal washes or irrigations) as told by your health care provider. Do not take medicines that contain aspirin if they make your symptoms worse. Talk with your health care provider about using aspirin. General instructions Do not drink alcohol if it makes your symptoms worse. Do not use any products that contain nicotine or tobacco. These products include cigarettes, chewing tobacco, and vaping devices, such as e-cigarettes. If you need help quitting, ask your health care provider. Keep all follow-up visits. This is important. Contact a health care provider if: Your condition does not get better or it gets worse at home after treatment. You have a fever. You have headaches or pain in your face that is new or is getting worse. You have a bloody nose. Get help right away if: It is hard to breathe and you feel like you are not getting enough air (shortness of breath). Summary Nasal polyps are growths that form in the nose. Nasal polyps look like moist, ochoa grapes in the nose. Symptoms depend on the size of the polyps. For large polyps that are causing symptoms, the goal of treatment is to reduce nasal obstruction and improve sinus drainage. Treatment may include medicines or surgery. This information is not intended to replace advice given to you by your health care provider. Make sure you discuss any questions you have with your health care provider. Document Revised: 04/05/2022 Document Reviewed: 04/05/2022 [employer] Patient Education 2022 [employer]. 10/23/2023 17:12:52 Nasal Polypectomy Nasal Polypectomy Nasal polypectomy is a procedure to remove polyps from the hollow space (nasal cavity) in the nose. Polyps are painless, noncancerous growths. The goal of this procedure is to relieve symptoms caused by nasal polyps. These symptoms include nasal congestion, difficulty smelling and breathing, and long-lasting (chronic) sinus infections. This procedure may be done when other treatments to shrink polyps have not worked. During the procedure, polyps are removed through the nostrils. No incisions are needed for this procedure. Tell a health care provider about: Any allergies you have. All medicines you are taking, including vitamins, herbs, eye drops, creams, and fkxa-onk-bpwqhuh medicines. Any problems you or family members have had with anesthetic medicines. Any bleeding problems you have. Any surgeries you have had. Any medical conditions you have. Whether you are or may be . Whether you smoke or have smoked. What are the risks? Generally, this is a safe procedure. However, problems may occur, including: Infection. Bleeding. Allergic reactions to medicines. Damage to nearby structures or organs. Blood clots. Return (recurrence) of the polyps. The following problems may occur, but they are very rare: Loss of the sense of smell. Problems with vision. Leakage of spinal fluid (cerebrospinal fluid) from the brain into the nose. Infection of the brain. What happens before the procedure? When to stop eating and drinking Follow instructions from your health care provider about what you may eat and drink before your procedure. These may include: 8 hours before your procedure ?Stop eating most foods. Do not eat meat, fried foods, or fatty foods. ?Eat only light foods, such as toast or crackers. ?All liquids are okay except energy drinks and alcohol. 6 hours before your procedure ?Stop eating. ?Drink only clear liquids, such as water, clear fruit juice, black coffee, plain tea, and sports drinks. ?Do not drink energy drinks or alcohol. 2 hours before your procedure ?Stop drinking all liquids. ?You may be allowed to take medicines with small sips of water. If you do not follow your health care provider's instructions, your procedure may be delayed or canceled. Medicines Ask your health care provider about: Changing or stopping your regular medicines. This is especially important if you are taking diabetes medicines or blood thinners. Taking medicines such as aspirin and ibuprofen. These medicines can thin your blood. Do not take these medicines unless your health care provider tells you to take them. Taking rfzo-oog-lnxseyw medicines, vitamins, herbs, and supplements. General instructions Do not use any products that contain nicotine or tobacco for at least 4 weeks before the procedure. These products include cigarettes, chewing tobacco, and vaping devices, such as e-cigarettes. If you need help quitting, ask your health care provider. You may be given a medicine to help reduce swelling (steroid). Ask your health care provider what steps will be taken to help prevent infection. These steps may include: ?Removing hair at the surgery site. ? Washing skin with a germ-killing soap. ? Taking antibiotic medicine. If you will be going home right after the procedure, plan to have a responsible adult: ?Take you home from the hospital or clinic. You will not be allowed to drive. ?Care for you for the time you are told. What happens during the procedure? An IV will be inserted into one of your veins. You may be given one or more of the following: ?A nasal decongestant spray. ?A steroid medicine to help reduce nasal congestion, nausea, and vomiting that you might experience after the procedure. ?A medicine to help you relax (sedative). ?A medicine to numb the area (local anesthetic). ?A medicine to make you fall asleep (general anesthetic). Your surgeon may insert a flexible tube with a camera (endoscope) into one of your nostrils. This will let your surgeon view your nasal cavity more clearly. Your surgeon will remove your polyps according to their size and location. ?If the polyps are small or are located toward the front of your nasal cavity, your surgeon will cut the polyps and remove them from your nasal cavity. ?If the polyps are large or are located deep inside your nasal cavity, your surgeon will: ?Insert a thin tube into your nostril. A surgical instrument will be attached to this tube. ?Cut and suction the polyps, starting at the back of your nasal cavity and moving toward the front. Ointment and bandages (dressings) may be applied to your nasal cavity. Gauze may be placed inside your nasal cavity. This may need to be removed later, or it may dissolve on its own. The procedure may vary among health care providers and hospitals. What happens after the procedure? Your blood pressure, heart rate, breathing rate, and blood oxygen level will be monitored until you leave the hospital or clinic. You may have gauze or packing in your nasal cavity. Your nose will feel congested. You may have some pain. You will be given medicines to relieve your pain. If you were given a sedative during the procedure, it can affect you for several hours. Do not drive or operate machinery until your health care provider says that it is safe. Summary Nasal polypectomy is a procedure to remove polyps from the hollow space (nasal cavity) in the nose. Generally, this is a safe procedure. However, problems may occur, including infection, bleeding, blood clots, or damage to nearby structures or organs. Follow instructions from your health care provider about what you may eat and drink before your procedure. After the procedure, you may have packing in your nose, feel congested, or have some pain. This information is not intended to replace advice given to you by your health care provider. Make sure you discuss any questions you have with your health care provider. Document Revised: 04/05/2022 Document Reviewed: 04/05/2022 [employer] Patient Education 2022 [employer] 10/23/2023 17:12:46 BMI for Adults BMI for Adults What is BMI? Body mass index (BMI) is a number that is calculated from a person's weight and height. BMI can help estimate how much of a person's weight is composed of fat. BMI does not measure body fat directly. Rather, it is an alternative to procedures that directly measure body fat, which can be difficult and expensive. BMI can help identify people who may be at higher risk for certain medical problems. What are BMI measurements used for? BMI is used as a screening tool to identify possible weight problems. It helps determine whether a person is obese, overweight, a healthy weight, or underweight. BMI is useful for: Identifying a weight problem that may be related to a medical condition or may increase the risk for medical problems. Promoting changes, such as changes in diet and exercise, to help reach a healthy weight. BMI screening can be repeated to see if these changes are working. How is BMI calculated? BMI involves measuring your weight in relation to your height. Both height and weight are measured, and the BMI is calculated from those numbers. This can be done either in [place] or metric measurements. Note that charts and online BMI calculators are available to help you find your BMI quickly and easily without having to do these calculations yourself. To calculate your BMI in [place] measurements: 1.Measure your weight in pounds (lb). 2.Multiply the number of pounds by 703. For example, for a person who weighs 180 lb, multiply that number by 703, which equals 126,540. 3.Measure your height in inches. Then multiply that number by itself to get a measurement called inches squared. For example, for a person who is 70 inches tall, the inches squared measurement is 70 inches x 70 inches, which equals 4,900 inches squared. 4.Divide the total from step 2 (number of lb x 703) by the total from step 3 (inches squared): 126,540 4,900 = 25.8. This is your BMI. To calculate your BMI in metric measurements: 1.Measure your weight in kilograms (kg). 2.Measure your height in meters (m). Then multiply that number by itself to get a measurement called meters squared. For example, for a person who is 1.75 m tall, the meters squared measurement is 1.75 m x 1.75 m, which is equal to 3.1 meters squared. 3.Divide the number of kilograms (your weight) by the meters squared number. In this example: 70 3.1 = 22.6. This is your BMI. What do the results mean? BMI charts are used to identify whether you are underweight, normal weight, overweight, or obese. The following guidelines will be used: Underweight: BMI less than 18.5. Normal weight: BMI between 18.5 and 24.9. Overweight: BMI between 25 and 29.9. Obese: BMI of 30 or above. Keep these notes in mind: Weight includes both fat and muscle, so someone with a muscular build, such as an athlete, may have a BMI that is higher than 24.9. In cases like these, BMI is not an accurate measure of body fat. To determine if excess body fat is the cause of a BMI of 25 or higher, further assessments may need to be done by a health care provider. BMI is usually interpreted in the same way for men and women. Where to find more information For more information about BMI, including tools to quickly calculate your BMI, go to these websites: Centers for Disease Control and Prevention: www.cdc.gov [place] [employer]: www.heart.org National Heart, Lung, and Blood [place]: www.nhlbi.nih.gov Summary Body mass index (BMI) is a number that is calculated from a person's weight and height. BMI may help estimate how much of a person's weight is composed of fat. BMI can help identify those who may be at higher risk for certain medical problems. BMI can be measured using Naur[place] measurements or metric measurements. BMI charts are used to identify whether you are underweight, normal weight, overweight, or obese. This information is not intended to replace advice given to you by your health care provider. Make sure you discuss any questions you have with your health care provider. Document Revised: 01/07/2020 Document Reviewed: 11/14/2019 [employer] Patient Education 2022 [employer]. Follow Up Care 10/23/2023 08:49:41 With:Lourdes Urrutia Address: [address] [place] [address], [facility] [place] [address]- When: only if needed [facility] 09-28-2023 Hospital Discharg e instructions Patient Education 09/28/2023 21:22:15 Abdominal Pain, Adult Abdominal Pain, Adult Pain in the abdomen (abdominal pain) can be caused by many things. Often, abdominal pain is not serious and it gets better with no treatment or by being treated at home. However, sometimes abdominal pain is serious. Your health care provider will ask questions about your medical history and do a physical exam to try to determine the cause of your abdominal pain. Follow these instructions at home: Medicines Take kvdj-mcc-reaeyfe and prescription medicines only as told by your health care provider. Do not take a laxative unless told by your health care provider. General instructions Watch your condition for any changes. Drink enough fluid to keep your urine pale yellow. Keep all follow-up visits as told by your health care provider. This is important. Contact a health care provider if: Your abdominal pain changes or gets worse. You are not hungry or you lose weight without trying. You are constipated or have diarrhea for more than 2 3 days. You have pain when you urinate or have a bowel movement. Your abdominal pain wakes you up at night. Your pain gets worse with meals, after eating, or with certain foods. You are vomiting and cannot keep anything down. You have a fever. You have blood in your urine. Get help right away if: Your pain does not go away as soon as your health care provider told you to expect. You cannot stop vomiting. Your pain is only in areas of the abdomen, such as the right side or the left lower portion of the abdomen. Pain on the right side could be caused by appendicitis. You have bloody or black stools, or stools that look like tar. You have severe pain, cramping, or bloating in your abdomen. You have signs of dehydration, such as: ?Dark urine, very little urine, or no urine. ?Cracked lips. ?Dry mouth. ?Sunken eyes. ?Sleepiness. ?Weakness. You have trouble breathing or chest pain. Summary Often, abdominal pain is not serious and it gets better with no treatment or by being treated at home. However, sometimes abdominal pain is serious. Watch your condition for any changes. Take bvue-vhj-ikllrsb and prescription medicines only as told by your health care provider. Contact a health care provider if your abdominal pain changes or gets worse. Get help right away if you have severe pain, cramping, or bloating in your abdomen. This information is not intended to replace advice given to you by your health care provider. Make sure you discuss any questions you have with your health care provider. Document Revised: 06/04/2020 Document Reviewed: 08/25/2019 [employer] Patient Education 2022 [employer]. Follow Up Care 09/28/2023 18:22:59 With:Evans CASAS Address: [address] [place] [address]- Business (1) When:Within 3 Day(s) [facility] 09-28-2023 Hospital Discharg e instructions Patient Education 09/28/2023 18:24:44 BMI for Adults BMI for Adults What is BMI? Body mass index (BMI) is a number that is calculated from a person's weight and height. BMI can help estimate how much of a person's weight is composed of fat. BMI does not measure body fat directly. Rather, it is an alternative to procedures that directly measure body fat, which can be difficult and expensive. BMI can help identify people who may be at higher risk for certain medical problems. What are BMI measurements used for? BMI is used as a screening tool to identify possible weight problems. It helps determine whether a person is obese, overweight, a healthy weight, or underweight. BMI is useful for: Identifying a weight problem that may be related to a medical condition or may increase the risk for medical problems. Promoting changes, such as changes in diet and exercise, to help reach a healthy weight. BMI screening can be repeated to see if these changes are working. How is BMI calculated? BMI involves measuring your weight in relation to your height. Both height and weight are measured, and the BMI is calculated from those numbers. This can be done either in [place] ([place] or metric measurements. Note that charts and online BMI calculators are available to help you find your BMI quickly and easily without having to do these calculations yourself. To calculate your BMI in [place] ([place] measurements: 1.Measure your weight in pounds (lb). 2.Multiply the number of pounds by 703. For example, for a person who weighs 180 lb, multiply that number by 703, which equals 126,540. 3.Measure your height in inches. Then multiply that number by itself to get a measurement called inches squared. For example, for a person who is 70 inches tall, the inches squared measurement is 70 inches x 70 inches, which equals 4,900 inches squared. 4.Divide the total from step 2 (number of lb x 703) by the total from step 3 (inches squared): 126,540 4,900 = 25.8. This is your BMI. To calculate your BMI in metric measurements: 1.Measure your weight in kilograms (kg). 2.Measure your height in meters (m). Then multiply that number by itself to get a measurement called meters squared. For example, for a person who is 1.75 m tall, the meters squared measurement is 1.75 m x 1.75 m, which is equal to 3.1 meters squared. 3.Divide the number of kilograms (your weight) by the meters squared number. In this example: 70 3.1 = 22.6. This is your BMI. What do the results mean? BMI charts are used to identify whether you are underweight, normal weight, overweight, or obese. The following guidelines will be used: Underweight: BMI less than 18.5. Normal weight: BMI between 18.5 and 24.9. Overweight: BMI between 25 and 29.9. Obese: BMI of 30 or above. Keep these notes in mind: Weight includes both fat and muscle, so someone with a muscular build, such as an athlete, may have a BMI that is higher than 24.9. In cases like these, BMI is not an accurate measure of body fat. To determine if excess body fat is the cause of a BMI of 25 or higher, further assessments may need to be done by a health care provider. BMI is usually interpreted in the same way for men and women. Where to find more information For more information about BMI, including tools to quickly calculate your BMI, go to these websites: Centers for Disease Control and Prevention: www.cdc.gov [place] [employer]: www.heart.org National Heart, Lung, and Blood [place]: www.nhlbi.nih.gov Summary Body mass index (BMI) is a number that is calculated from a person's weight and height. BMI may help estimate how much of a person's weight is composed of fat. BMI can help identify those who may be at higher risk for certain medical problems. BMI can be measured using Nauruan measurements or metric measurements. BMI charts are used to identify whether you are underweight, normal weight, overweight, or obese. This information is not intended to replace advice given to you by your health care provider. Make sure you discuss any questions you have with your health care provider. Document Revised: 01/07/2020 Document Reviewed: 11/14/2019 [employer] Patient Education 2022 [employer]. 09/28/2023 18:24:42 Hypertension, Adult, Lbtn-wd-Bfox Hypertension, Adult Hypertension is another name for high blood pressure. High blood pressure forces your heart to work harder to pump blood. This can cause problems over time. There are two numbers in a blood pressure reading. There is a top number (systolic) over a bottom number (diastolic). It is best to have a blood pressure that is below 120/80. What are the causes? The cause of this condition is not known. Some other conditions can lead to high blood pressure. What increases the risk? Some lifestyle factors can make you more likely to develop high blood pressure: Smoking. Not getting enough exercise or physical activity. Being overweight. Having too much fat, sugar, calories, or salt (sodium) in your diet. Drinking too much alcohol. Other risk factors include: Having any of these conditions: ?Heart disease. ?Diabetes. ? High cholesterol. ?Kidney disease. ?Obstructive sleep apnea. Having a family history of high blood pressure and high cholesterol. Age. The risk increases with age. Stress. What are the signs or symptoms? High blood pressure may not cause symptoms. Very high blood pressure (hypertensive crisis) may cause: Headache. Fast or uneven heartbeats (palpitations). Shortness of breath. Nosebleed. Vomiting or feeling like you may vomit (nauseous). Changes in how you see. Very bad chest pain. Feeling dizzy. Seizures. How is this treated? This condition is treated by making healthy lifestyle changes, such as: ?Eating healthy foods. ?Exercising more. ?Drinking less alcohol. Your doctor may prescribe medicine if lifestyle changes do not help enough and if: ?Your top number is above 130. ?Your bottom number is above 80. Your personal target blood pressure may vary. Follow these instructions at home: Eating and drinking If told, follow the DASH eating plan. To follow this plan: ?Fill one half of your plate at each meal with fruits and vegetables. ?Fill one fourth of your plate at each meal with whole grains. Whole grains include whole-wheat pasta, brown rice, and whole-grain bread. ?Eat or drink low-fat dairy products, such as skim milk or low-fat yogurt. ?Fill one fourth of your plate at each meal with low-fat (lean) proteins. Low-fat proteins include fish, chicken without skin, eggs, beans, and tofu. ?Avoid fatty meat, cured and processed meat, or chicken with skin. ?Avoid pre-made or processed food. Limit the amount of salt in your diet to less than 1,500 mg each day. Do not drink alcohol if: ?Your doctor tells you not to drink. ?You are , may be , or are planning to become . If you drink alcohol: ?Limit how much you have to: ?0 1 drink a day for women. ?0 2 drinks a day for men. ?Know how much alcohol is in your drink. In the [place] one drink equals one 12 oz bottle of beer (355 mL), one 5 oz glass of wine (148 mL), or one 1 oz glass of hard liquor (44 mL). Lifestyle Work with your doctor to stay at a healthy weight or to lose weight. Ask your doctor what the best weight is for you. Get at least 30 minutes of exercise that causes your heart to beat faster (aerobic exercise) most days of the week. This may include walking, swimming, or biking. Get at least 30 minutes of exercise that strengthens your muscles (resistance exercise) at least 3 days a week. This may include lifting weights or doing Pilates. Do not smoke or use any products that contain nicotine or tobacco. If you need help quitting, ask your doctor. Check your blood pressure at home as told by your doctor. Keep all follow-up visits. Medicines Take ubee-mnn-qlgyufc and prescription medicines only as told by your doctor. Follow directions carefully. Do not skip doses of blood pressure medicine. The medicine does not work as well if you skip doses. Skipping doses also puts you at risk for problems. Ask your doctor about side effects or reactions to medicines that you should watch for. Contact a doctor if: You think you are having a reaction to the medicine you are taking. You have headaches that keep coming back. You feel dizzy. You have swelling in your ankles. You have trouble with your vision. Get help right away if: You get a very bad headache. You start to feel mixed up (confused). You feel weak or numb. You feel faint. You have very bad pain in your: ?Chest. ?Belly (abdomen). You vomit more than once. You have trouble breathing. These symptoms may be an emergency. Get help right away. Call 911. Do not wait to see if the symptoms will go away. Do not drive yourself to the hospital. Summary Hypertension is another name for high blood pressure. High blood pressure forces your heart to work harder to pump blood. For most people, a normal blood pressure is less than 120/80. Making healthy choices can help lower blood pressure. If your blood pressure does not get lower with healthy choices, you may need to take medicine. This information is not intended to replace advice given to you by your health care provider. Make sure you discuss any questions you have with your health care provider. Document Revised: 02/02/2022 Document Reviewed: 02/02/2022 [employer] Patient Education 2022 [employer]. 09/28/2023 18:24:32 Abdominal Pain, Adult, Eskg-gk-Naqs Abdominal Pain, Adult Many things can cause belly (abdominal) pain. Most times, belly pain is not dangerous. Many cases of belly pain can be watched and treated at home. Sometimes, though, belly pain is serious. Your doctor will try to find the cause of your belly pain. Follow these instructions at home: Medicines Take zegd-uge-kqxjxpb and prescription medicines only as told by your doctor. Do not take medicines that help you poop (laxatives) unless told by your doctor. General instructions Watch your belly pain for any changes. Drink enough fluid to keep your pee (urine) pale yellow. Keep all follow-up visits as told by your doctor. This is important. Contact a doctor if: Your belly pain changes or gets worse. You are not hungry, or you lose weight without trying. You are having trouble pooping (constipated) or have watery poop (diarrhea) for more than 2 3 days. You have pain when you pee or poop. Your belly pain wakes you up at night. Your pain gets worse with meals, after eating, or with certain foods. You are vomiting and cannot keep anything down. You have a fever. You have blood in your pee. Get help right away if: Your pain does not go away as soon as your doctor says it should. You cannot stop vomiting. Your pain is only in areas of your belly, such as the right side or the left lower part of the belly. You have bloody or black poop, or poop that looks like tar. You have very bad pain, cramping, or bloating in your belly. You have signs of not having enough fluid or water in your body (dehydration), such as: ?Dark pee, very little pee, or no pee. ?Cracked lips. ?Dry mouth. ?Sunken eyes. ?Sleepiness. ?Weakness. You have trouble breathing or chest pain. Summary Many cases of belly pain can be watched and treated at home. Watch your belly pain for any changes. Take poor-tfe-xkrzuip and prescription medicines only as told by your doctor. Contact a doctor if your belly pain changes or gets worse. Get help right away if you have very bad pain, cramping, or bloating in your belly. This information is not intended to replace advice given to you by your health care provider. Make sure you discuss any questions you have with your health care provider. Document Revised: 08/25/2019 Document Reviewed: 08/25/2019 [employer] Patient Education 2022 [employer]. Follow Up Care 09/28/2023 16:11:11 With:Emergency room Address: When: only if needed Comments:Patient was instructed to contact emergency room for any worsening abdominal pain, concerns, or complications. [facility] 09-28-2023 Evaluation + Plan note Extrac aida from: Title:ED Note Author:Bijan Miramontes PA-C te:09/28/23 1. Abdominal pain (R10.9: Un specified abdominal pain) Orders: Sodium Chloride 0.9% intravenous solution, 1,000 mL, Soln-IV, IV, Once, Stop date 09/28/23 18:42:00 EDT, STAT, Start date 09/28/23 18:42:00 EDT, Infuse over 61, minute(s) Basic Metabolic Panel Beta hCG Qual CBC w/ Auto Diff Hepatic Function Panel Lipase Level UA with Cult Rflx Future Appointments Appointment Date:12/03/2023 12:40:00 PM Scheduled Provider:Evans CASAS DO, FAAFP Location:[facility] Appointment Type:FM Open Future Scheduled Tests Laboratory* HgbA1c 08/03/23 [facility]05-30-2024 Telephone encounter Note* Telephone Encounter - JocelynelesterHarjti - 09/27/2023 4:38 PM EDT Attempt has been made x2 to reschedule patient. She did not have labs drawn. Harjit Jocelynelester [facility]05-30-2024 Miscellaneous Notes* Telephone Encounter - Divine Harjit - 09/27/2023 4:38 PM EDT Attempt has been made x2 to reschedule patient. She did not have labs drawn. Harjit Divien [facility] NoteHNO ID: [id number] Author: SALVADOR CALIX MD Service: ? Author Type: Physician Type: Progress Notes Filed: 09/26/2023 09:13 Note Text: Did not have labs done to prep for this visit - reschedule. Salvador Calix [facility]05-29-2024 History of Present illness Narrative* Salvador Calix MD - 09/26/2023 9:11 AM EDT Did not have labs done to prep for this visit - reschedule. Salvador Calix MD [facility] Hospital Discharge instructions Patient Education 08/03/2023 12:18:51 Exercising to Lose Weight Exercising to Lose Weight Getting regular exercise is important for everyone. It is especially important if you are overweight. Being overweight increases your risk of heart disease, stroke, diabetes, high blood pressure, andseveral types of cancer. Exercising, and reducing the calories you consume, can help you lose weight and improve fitness and health. Exercise can be moderate or vigorous intensity. To lose weight, most people need to do a certain amount of moderate or vigorous-intensity exercise each week. How can exercise affect me? You lose weight when you exercise enough to burn more calories than you eat. Exercise also reduces body fat and builds muscle. The more muscle you have, the more calories you burn. Exercise also: Improves mood. Reduces stress and tension. Improves your overall fitness, flexibility, and endurance. Increases bone strength. Moderate-intensity exercise Moderate-intensity exercise is any activity that gets you moving enough to burn at least three times more energy (calories) than if you were sitting. Examples of moderate exercise include: Walking a mile in 15 minutes. Doing light yard work. Biking at an easy pace. Most people should get at least 150 minutes of moderate-intensity exercise a week to maintain theirbody weight. Vigorous-intensity exercise Vigorous-intensity exercise is any activity that gets you moving enough to burn at least six times more calories than if you were sitting. When you exercise at this intensity, you should be working hard enough that you are not able to carry on a conversation. Examples of vigorous exercise include: Running. Playing a team sport, such as football, basketball, and soccer. Jumping rope. Most people should get at least 75 minutes a week of vigorous exercise to maintain their body weight. What actions can I take to lose weight? The amount of exercise you need to lose weight depends on: Your age. The type of exercise. Any health conditions you have. Your overall physical ability. Talk to your health care provider about how much exercise you need and what types of activities aresafe for you. Nutrition Make changes to your diet as told by your health care provider or diet and nutrition worker (dietitian). This may include: ?Eating fewer calories. ?Eating more protein. ?Eating less unhealthy fats. ?Eating a diet that includes fresh fruits and vegetables, whole grains, low-fat dairy products, andlean protein. ?Avoiding foods with added fat, salt, and sugar. Drink plenty of water while you exercise to prevent dehydration or heat stroke. Activity Choose an activity that you enjoy and set realistic goals. Your health care provider can help you make an exercise plan that works for you. Exercise at a moderate or vigorous intensity most days of the week. ?The intensity of exercise may vary from person to person. You can tell how intense a workout is for you by paying attention to your breathing and heartbeat. Most people will notice their breathing and heartbeat get faster with more intense exercise. Do resistance training twice each week, such as: ?Push-ups. ?Sit-ups. ?Lifting weights. ?Using resistance bands. Getting short amounts of exercise can be just as helpful as long, structured periods of exercise. If you have trouble finding time to exercise, try doing these things as part of your daily routine: ?Get up, stretch, and walk around every 30 minutes throughout the day. ?Go for a walk during your lunch break. ?Park your car farther away from your destination. ?If you take public transportation, get off one stop early and walk the rest of the way. ?Make phone calls while standing up and walking around. ?Take the stairs instead of elevators or escalators. Wear comfortable clothes and shoes with good support. Do not exercise so much that you hurt yourself, feel dizzy, or get very short of breath. Where to find more information [place] Department of Health and Human Services: www.hhs.gov Centers for Disease Control and Prevention: www.cdc.gov Contact a health care provider: Before starting a new exercise program. If you have questions or concerns about your weight. If you have a medical problem that keeps you from exercising. Get help right away if: You have any of the following while exercising: ?Injury. ?Dizziness. ?Difficulty breathing or shortness of breath that does not go away when you stop exercising. ?Chest pain. ?Rapid heartbeat. These symptoms may represent a serious problem that is an emergency. Do not wait to see if the symptoms will go away. Get medical help right away. Call your local emergency services (911 in the [place] Do not drive yourself to the hospital. Summary Getting regular exercise is especially important if you are overweight. Being overweight increases your risk of heart disease, stroke, diabetes, high blood pressure, and several types of cancer. Losing weight happens when you burn more calories than you eat. Reducing the amount of calories you eat, and getting regular moderate or vigorous exercise each week, helps you lose weight. This information is not intended to replace advice given to you by your health care provider. Make sure you discuss any questions you have with your health care provider. Document Revised: 06/12/2021 Document Reviewed: 06/12/2021 Elsevier Patient Education 2022 [employer]. Follow Up Care 02/15/2023 10:07:52 With:PRAVEEN RESENDEZ FAAFP, Evans Tony, CHRIS, PED Address: [place] [address]- When:Within 4 Month(s) [facility] 04-05-2024 Evaluation + Plan note Future Scheduled Tests Laboratory* HgbA1c 08/03/23 Radiology* CT Soft Tissue Neck w/ Contrast 11/12/23 [facility] 02-22-2024 Hospital Discharge instructions Patient Education 06/21/2023 06:07:39 Blood Glucose Monitoring, Adult Blood Glucose Monitoring, Adult Monitoring your blood sugar (glucose) is an important part of managing your diabetes. Blood glucosemonitoring involves checking your blood glucose as often as directed and keeping a log or record ofyour results over time. Checking your blood glucose regularly and keeping a blood glucose log can: Help you and your health care provider adjust your diabetes management plan as needed, including your medicines or insulin. Help you understand how food, exercise, illnesses, and medicines affect your blood glucose. Let you know what your blood glucose is at any time. You can quickly find out if you have low bloodglucose (hypoglycemia) or high blood glucose (hyperglycemia). Your health care provider will set individualized treatment goals for you. Your goals will be basedon your age, other medical conditions you have, and how you respond to diabetes treatment. Generally, the goal of treatment is to maintain the following blood glucose levels: Before meals (preprandial): 80 130 mg/dL (4.4 7.2 mmol/L). After meals (postprandial): below 180 mg/dL (10 mmol/L). A1C level: less than 7%. Supplies needed: Blood glucose meter. Test strips for your meter. Each meter has its own strips. You must use the strips that came with your meter. A needle to prick your finger (lancet). Do not use a lancet more than one time. A device that holds the lancet (lancing device). A journal or log book to write down your results. How to check your blood glucose Checking your blood glucose 1.Wash your hands for at least 20 seconds with soap and water. 2.Prick the side of your finger (not the tip) with the lancet. Do not use the same finger consecutively. 3.Gently rub the finger until a small drop of blood appears. 4.Follow instructions that come with your meter for inserting the test strip, applying blood to thestrip, and using your blood glucose meter. 5.Write down your result and any notes in your log. Using alternative sites Some meters allow you to use areas of your body other than your finger (alternative sites) to test your blood. The most common alternative sites are the forearm, the thigh, and the palm of your hand. Alternative sites may not be as accurate as the fingers because blood flow is slower in those areas. This means that the result you get may be delayed, and it may be different from the result that you would get from your finger. Use the finger only, and do not use alternative sites, if: You think you have hypoglycemia. You sometimes do not know that your blood glucose is getting low (hypoglycemia unawareness). General tips and recommendations Blood glucose log Every time you check your blood glucose, write down your result. Also write down any notes about things that may be affecting your blood glucose, such as your diet and exercise for the day. This information can help you and your health care provider: ?Look for patterns in your blood glucose over time. ?Adjust your diabetes management plan as needed. Check if your meter allows you to download your records to a computer or if there is an kennedy for themeter. Most glucose meters store a record of glucose readings in the meter. If you have type 1 diabetes: Check your blood glucose 4 or more times a day if you are on intensive insulin therapy with multiple daily injections (MDI) or if you are using an insulin pump. Check your blood glucose: ?Before every meal and snack. ?Before bedtime. Also check your blood glucose: ?If you have symptoms of hypoglycemia. ?After treating low blood glucose. ?Before doing activities that create a risk for injury, like driving or using machinery. ?Before and after exercise. ?Two hours after a meal. ?Occasionally between 2:00 a.m. and 3:00 a.m., as directed. You may need to check your blood glucose more often, 6 10 times per day, if: ?You have diabetes that is not well controlled. ?You are ill. ?You have a history of severe hypoglycemia. ?You have hypoglycemia unawareness. If you have type 2 diabetes: Check your blood glucose 2 or more times a day if you take insulin or other diabetes medicines. Check your blood glucose 4 or more times a day if you are on intensive insulin therapy. Occasionally, you may also need to check your glucose between 2:00 a.m. and 3:00 a.m., as directed. Also check your blood glucose: ?Before and after exercise. ?Before doing activities that create a risk for injury, like driving or using machinery. You may need to check your blood glucose more often if: ?Your medicine is being adjusted. ?Your diabetes is not well controlled. ?You are ill. General tips Make sure you always have your supplies with you. After you use a few boxes of test strips, adjust (calibrate) your blood glucose meter by following instructions that came with your meter. If you have questions or need help, all blood glucose meters have a 24-hour hotline phone number available that you can call. Also contact your health care provider with questions or concerns you mayhave. Where to find more information The [place] [employer]: www.diabetes.org The Association of Diabetes [employer] & Education Specialists: www.diabeteseducator.org Contact a health care provider if: Your blood glucose is at or above 240 mg/dL (13.3 mmol/L) for 2 days in a row. You have been sick or have had a fever for 2 days or longer, and you are not getting better. You have any of the following problems for more than 6 hours: ?You cannot eat or drink. ?You have nausea or vomiting. ?You have diarrhea. Get help right away if: Your blood glucose is lower than 54 mg/dL (3 mmol/L). You become confused, or you have trouble thinking clearly. You have difficulty breathing. You have moderate or large ketone levels in your urine. These symptoms may represent a serious problem that is an emergency. Do not wait to see if the symptoms will go away. Get medical help right away. Call your local emergency services (911 in the [place] Do not drive yourself to the hospital. Summary Monitoring your blood glucose is an important part of managing your diabetes. Blood glucose monitoring involves checking your blood glucose as often as directed and keeping a log or record of your results over time. Your health care provider will set individualized treatment goals for you. Your goals will be basedon your age, other medical conditions you have, and how you respond to diabetes treatment. Every time you check your blood glucose, write down your result. Also, write down any notes about things that may be affecting your blood glucose, such as your diet and exercise for the day. This information is not intended to replace advice given to you by your health care provider. Make sure you discuss any questions you have with your health care provider. Document Revised: 01/12/2021 Document Reviewed: 01/12/2021 [employer] Patient Education 2022 [employer]. 06/21/2023 06:07:34 Preventing Iron Deficiency Anemia, Adult Preventing Iron Deficiency Anemia, Adult Iron deficiency is having a lack of iron in the body. Iron is an important mineral that your body needs to build healthy red blood cells. Iron deficiency anemia is a condition in which the concentration of red blood cells or hemoglobin in the blood is below normal because of too little iron. Hemoglobin is a substance in red blood cells that carries oxygen to the body's tissues. You may develop iron deficiency anemia due to: Blood loss from an injury or condition such as Crohn's disease. Your body being unable to properly absorb iron and use it to create red blood cells. Lack of iron in your diet. You can prevent iron deficiency anemia by making certain changes to your diet and lifestyle. How can this condition affect me? If not treated, iron deficiency anemia can lead to serious health complications, including: Long-term (chronic) tiredness or fatigue. Shortness of breath with activity. Abnormal heart rhythms. Heart failure. Uncomfortable sensations and an overwhelming urge to move your legs (restless legs syndrome). A weakened disease-fighting system (immune system). What can increase my risk? It is important to know whether you are at risk for iron deficiency anemia. Ask your health care provider if you need a blood test to measure your iron or red blood cells. You may have a higher risk for iron deficiency anemia if: You are female and one of the following applies: ?You have heavy menstrual periods. ?You are . ?You are . You have had bypass surgery for weight loss. You have a digestive disorder such as Crohn's disease, irritable bowel syndrome, or celiac disease. You regularly take antacids or acid-lowering medicines. You follow a vegetarian or vegan diet. What actions can I take to lower my risk? Nutrition Eat foods that are high in iron, such as: ?Red meat, especially liver and beef. ?Poultry. ?Seafood. ?Dried fruit. ?Prune juice. ?Nuts. ?Pumpkin seeds. ?Beans. ?Leafy green vegetables. ?Molasses. ?Tofu. Look for foods that have added iron (are fortified). Many cereals and breads are iron fortified. Eat foods that contain vitamin C along with iron-rich foods, preferably in the same meal. Vitamin Cincreases your body's ability to absorb iron. Foods high in vitamin C include: ?[place] fruits, such as tai, oranges, and grapefruits. ?Berries. ?Clancy peppers. ?Tomatoes. ?Broccoli. Do not follow a diet that is very low in fat or very high in fiber. Do not drink very large amounts of milk, tea, or coffee. General tips Limit your use of antacids or acid-lowering medicines. Work with your health care provider to manage conditions that can cause iron deficiency. Ask your health care provider if a multivitamin or iron supplement is right for you. Take arqc-sib-cdraiag and prescription medicines only as told by your health care provider. Keep all follow-up visits. Where to find more information Learn more about preventing iron deficiency from: National Heart, Lung, and Blood [place]: www.nhlbi.nih.gov [place] [employer] of Hematology: www.hematology.org Contact a health care provider if: You develop symptoms of iron deficiency, including: ?Fatigue. ?Headache. ?Pale skin, lips, and nail beds. ?Poor appetite. ?Weakness. Summary Iron deficiency anemia is a condition in which the concentration of red blood cells or hemoglobin in the blood is below normal because of too little iron. You can help prevent iron deficiency anemia by eating more iron-rich foods, such as red meat, poultry, or tofu. Look for foods that have added iron (are fortified), such as cereals. Eat foods that contain vitamin C along with iron-rich foods, preferably in the same meal. Vitamin Cincreases the body's ability to absorb iron. Ask your health care provider about your risk for iron deficiency anemia and whether a multivitaminor iron supplement may be right for you. This information is not intended to replace advice given to you by your health care provider. Make sure you discuss any questions you have with your health care provider. Document Revised: 05/24/2022 Document Reviewed: 05/24/2022 [employer] Patient Education 2022 [employer]. 06/21/2023 06:07:28 BMI for Adults BMI for Adults What is BMI? Body mass index (BMI) is a number that is calculated from a person's weight and height. BMI can help estimate how much of a person's weight is composed of fat. BMI does not measure body fat directly.Rather, it is an alternative to procedures that directly measure body fat, which can be difficult and expensive. BMI can help identify people who may be at higher risk for certain medical problems. What are BMI measurements used for? BMI is used as a screening tool to identify possible weight problems. It helps determine whether a person is obese, overweight, a healthy weight, or underweight. BMI is useful for: Identifying a weight problem that may be related to a medical condition or may increase the risk for medical problems. Promoting changes, such as changes in diet and exercise, to help reach a healthy weight. BMI screening can be repeated to see if these changes are working. How is BMI calculated? BMI involves measuring your weight in relation to your height. Both height and weight are measured,and the BMI is calculated from those numbers. This can be done either in [place] ([place] or metric measurements. Note that charts and online BMI calculators are available to help you find your BMI quickly and easily without having to do these calculations yourself. To calculate your BMI in [place] ([place] measurements: 1.Measure your weight in pounds (lb). 2.Multiply the number of pounds by 703. For example, for a person who weighs 180 lb, multiply that number by 703, which equals 126,540. 3.Measure your height in inches. Then multiply that number by itself to get a measurement called inches squared. For example, for a person who is 70 inches tall, the inches squared measurement is 70 inches x 70inches, which equals 4,900 inches squared. 4.Divide the total from step 2 (number of lb x 703) by the total from step 3 (inches squared): 126,540 4,900 = 25.8. This is your BMI. To calculate your BMI in metric measurements: 1.Measure your weight in kilograms (kg). 2.Measure your height in meters (m). Then multiply that number by itself to get a measurement called meters squared. For example, for a person who is 1.75 m tall, the meters squared measurement is 1.75 m x 1.75 m, which is equal to 3.1 meters squared. 3.Divide the number of kilograms (your weight) by the meters squared number. In this example: 70 3.1 = 22.6. This is your BMI. What do the results mean? BMI charts are used to identify whether you are underweight, normal weight, overweight, or obese. The following guidelines will be used: Underweight: BMI less than 18.5. Normal weight: BMI between 18.5 and 24.9. Overweight: BMI between 25 and 29.9. Obese: BMI of 30 or above. Keep these notes in mind: Weight includes both fat and muscle, so someone with a muscular build, such as an athlete, may havea BMI that is higher than 24.9. In cases like these, BMI is not an accurate measure of body fat. To determine if excess body fat is the cause of a BMI of 25 or higher, further assessments may needto be done by a health care provider. BMI is usually interpreted in the same way for men and women. Where to find more information For more information about BMI, including tools to quickly calculate your BMI, go to these websites: Centers for Disease Control and Prevention: www.cdc.gov [place] [employer] Association: www.heart.org National Heart, Lung, and Blood [place]: www.nhlbi.nih.gov Summary Body mass index (BMI) is a number that is calculated from a person's weight and height. BMI may help estimate how much of a person's weight is composed of fat. BMI can help identify thosewho may be at higher risk for certain medical problems. BMI can be measured using Nauruan measurements or metric measurements. BMI charts are used to identify whether you are underweight, normal weight, overweight, or obese. This information is not intended to replace advice given to you by your health care provider. Make sure you discuss any questions you have with your health care provider. Document Revised: 01/07/2020 Document Reviewed: 11/14/2019 [employer] Patient Education 2022 [employer]. Follow Up Care 06/19/2023 13:39:56 With:PRAVEEN RESENDEZ FAAFP, CHRIS Perez, PED Address: [place] [address]- When: Unknown [facility] 02-20-2024 Miscellaneous Notes* Telephone Encounter - Naga Johnson RN - 06/19/2023 1:05 PM EST Pt called back and aware of [employer]'s message. She is agreeable to POC and denies further needs at thistime. She will call PCP to follow up on TSH Naga Johnson RN * Telephone Encounter - Naga Johnson RN - 06/19/2023 12:26 PM EST [employer] message sent Naga Johnson RN * Telephone Encounter - Naga Johnson RN - 06/19/2023 12:23 PM EST Attempted both phone numbers. No answer/VM full Naga Johnson RN * Telephone Encounter - Salvador Calix MD - 06/19/2023 11:59 AM EST While she's not anemic, she is iron deficient and should be taking oral iron replacement -once daily any OTC formulation is fine. She is also low on Vitamin D - should take D3 5000 international unit(s) daily. Her TSH is high indicating low thyroid function - this should be addressed by her PCP please. * Telephone Encounter - Naga Johnson RN - 06/18/2023 8:42 AM EST Please review labs and advise * Telephone Encounter - Harjit Haskins - 06/15/2023 2:36 PM EST Triage to call lab results Harjitpablito Haskins [facility] Instructions* Patient Instructions* Nathaly Carney - 06/15/2023 2:29 PM EST Triage to call lab results Please see Dr. Jorge Monge - for vision changes and numbness of face Continue Lovenox - patient prefers 40 mg (rather than rec 80mg) Encouraged her to reconsider Take B12 supplement in the form of a sublingual tablet RTC in 3 months Labs same day Vitamin D, TSH, Calcium with CMP [facility] Nurse Note* Serina Horton MA - 06/15/2023 2:10 PM EST Patient has had intermittent joint and muscle pain. She also has times of fatigue, chills, no feverwith low temp and low heart rate and feeling ill prior to getting the joint pain/muscle pain. Patient also states her rate can go from the low 60's to 180's with exercise. Serina Dawson MA [facility] History of Present illness Narrative* Salvador Calix MD - 06/15/2023 2:00 PM EST Images from the original note were not included. NAME: Madhu Rendon CLINIC NO.: [id number] DATE OF SERVICE: June 15, 2023 ([place]) Some elements in this clinic note that are critical to medical decision making have been carefully reviewed and included from a prior clinic note dated: May 31, 2023 ([place]) Additional Clinicians involved in Madhu Rendon's care: Drs. Herrmann, Jorge Monge, Humaira Gaviria, CC: hypercoag state. ASSESSMENT: 37 year old woman 25 weeks presents with a prior history of CVA in 2016 and anantiphospholipid antibody that was identified much later in 2018. These were found in [place], [place]. I don't have access to these results. Patient believes that she has anticardiolipin antibodies but wasn't sure. She has been on Plavix for approximately year and a half and had bled heavily on aspirin preceding this. She currently has no evidence of active thrombosis. We had discussed the potential etiology of antiphospholipid antibodies in the context of her symptoms which preceded her diagnosis by approximately2 years presenting as a CVA. At some point in time she had a vW disease workup but we don't have that specific data from prior workup. After discussion with her neurologist, Dr. Jorge Monge, we put her on prophylactic dose Lovenox throughout her prior but is now again and at 25 weeks. Had difficulty with associated diabetes. Recalls having had a target-like rash shortly before presenting to [place] in 2016 with headaches and was diagnosed with a CVA. - She saw Dr. Baugh but no relevant conclusion was made. She remains on Lovenox - still breast feeding. No clinical need to recheck her APL Ab or Cardiolipin Ab's as results will not change our treatmentplan. PLAN: Triage to call lab results Please see Dr. Jorge Monge - for vision changes and numbness of face Continue Lovenox - patient prefers 40 mg (rather than rec 80mg) Encouraged her to reconsider Take B12 supplement in the form of a sublingual tablet RTC in 3 months Labs same day Vitamin D, TSH, Calcium with CMP ___ HPI: Updated Visit, June 15, 2023: Madhu returns today with her youngest two children. She is still breast feeding. Numbness and vision changes both have subsided, she still plans to see Dr. Monge soon. When she hada stoke in [place], she had symptoms up to a month before: uncontrollable headache, BP was elevated, knee stiffness, and blurry vision. Right facial drooping and difficulty speaking sent her to the hospital. She continues to take vitamins. Updated Visit, May 31, 2023: Virtual Visit Shadow over right eye and some numbness of her face. Feels like she's getting itchy under her skin - intermittent electric-shocks . Abdominal contractions that feel like labor but not low in the pelvis. Weight is unchanged and she is having trouble losing weight. Feels she has a lot of fullness in her neck/throat. Could not operate her video. Updated Visit, March 19, 2023: Virtual Visit: Doing ok but is getting sick. Was not able to connect video. Vitamin D is low. Having trouble with blood sugars Baby and all kids doing well. Still breast feeding. Updated Visit, December 22, 2022: Virtual visit Had a few more bloody bowel movements after we spoke last time. But resolved more than a month ago. Labs are good - no need for iron . B12 is on the lower end of normal. Otherwise and I think unrelated - weak, urinating a lot and mouth is dry all the time for the past few days. Updated Visit, September 28, 2022: Virtual Visit Had blood with BM x2 - has had this before and stayed on Lovenox Hgb 13.1 @ [facility] Recommended ER if persisting bleeding but she would prefer to stay on Lovenox for now. Updated Visit, July 27, 2022: Madhu returns today and has 2 of her youngest children with her. She didn't hemorrhage with her most recent delivery and has a healthy baby girl age 11 weeks. Her 3 year old son is with her too. Joints ache but perhaps related to 4 children 14- 11 weeks. Updated Visit, March 27, 2022: Madhu is 36 years old and is doing well with her current maintain on low-dose prophylactic Lovenox. Doing well overall but is having some bleeding following oral iron therapy due to constipation. May qualify for IV iron which will help her. She hemorrhaged after her last and required transfusion. 33 weeks - scheduled to be induced at 39 weeks Updated Visit, January 30, 2022: Madhu returns at 25 weeks of her current . She remains on prophylactic dose Lovenox. Appreciate my colleagues opinion regarding her anticoagulation and she found Dr. Hamlin's opinion very helpful as well. We reviewed the recommendations together, but we will follow her preference to treatment. She prefers to stay on the 40 mg dose daily and will monitor for hemorrhage as she has done in the past. She is having trouble with hyperglycemia in and also has become mildly anemic although, this is most likely due to plasma expansion. I have checked iron studies and those are pending. She is otherwise getting along very well. 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 In any case I do think thatthis is a risk factor for her stroke as well as for recurrent loss. The fact that she hashad a stroke and also had 1 late loss classifies her as having the antiphospholipid syndrome. Though she has done well on at least one while on Lovenox the standard of care would be to have her on both Lovenox and low-dose aspirin. She is somewhat hesitant to take aspirin as she hashad some intolerance before, but I encouraged her to consider 81 mg of daily aspirin. While 1 can make an argument for full dose anticoagulation during because of her previous stroke, giventhat she is also on aspirin I would recommend that we simply at this point increase her Lovenox dose to 80 mg daily. However in the period I would increase to a therapeutic range of at least 80 mg twice daily. She has not had antiphospholipid antibody testing since June 2019, and I would recommend repeatingan antibody panel at this time. I have put in a standing order for lupus anticoagulant testing. (Earl, 08/2021) Updated Visit, August 01, 2021: Doing well overall and has resolved some of her symptoms. No additional stroke like symptoms. Stillbreastfeeding and will maintain lovenox until she is finished. Has recurring UTI with pseudomonas - having mild symptoms now. Hair is dry and has patches Updated Visit, December 23, 2020: Father at the End of September 2020 so she's had a rough few months. He was 73 and had a colorectal cancer. Mother also had colon cancer and at age 69. Both lived in [facility] but she was adopted. She was not able to see ID in October and will be seeing Dr. Baugh next week. Also will have her see Dr. Hamlin for her clotting disorder and make any other recommendations to optimize her treatment. Updated Visit, October 08, 2020: Telephone only Received call from pt stating she was seen in [facility] ER for numbness in her chest, throat, and extremities, and sob which has been worsening over the last week. We arranged a telephone visit for her franci questions with me. Madhu Rendon is a 34 year old female seen for Hypercoagulable state and recent concerns and symptoms that required her to be seen at [facility] ER. She went to the ER with Gradual worsening of breathing after progressive tingling of fingers and legs. She currently remains very fatigued even though she is sleeping well. Now recalls that before her stroke she remembers having a bull's eye rash and was seen with severe headaches in [facility] was found to have a stroke in 2016. Updated Visit, May 05, 2020: Madhu is 34 years old and returns for routine check in for chronic anticoagulation of her hypercoagulable disorder that presented with a CVA approximately 2018. Full work-up has revealed some low-level anticardiolipin antibodies in an indeterminate range, but given her's symptoms and thrombotic event her neurologist and I feel that it be appropriate to at least put her on prophylactic dosing of anticoagulation. She is currently on Lovenox because she is still breast feeding her 4-month-old son. Recently she reports that she had numbness preceding a root canal and was sent to [facility] for MRI which was negative but non-contrasted. She like her chemistries checked because she's had hyponatremia before. She also complains that even though she is still breast feeding, she is still gaining weight hasn'tbeen eating healthy as food. She also has started vaginal spotting and has started Her menses but is not heavy at this time. Fatigue is pronounced but isn't anemic today. All labs reviewed. Updated Visit, February 02, 2020: Madhu is 34 yo and delivered a healthy baby boy who is now 3 weeks old. She bled after and was downto 8.5 but didn't need transfusions. She hemorrhaged with each of her prior 2 pregnancies. Daughteris Autistic 51/2. Her son who is 12 had Tics when he was 6. Discussed briefly the risks of further with requirements of anticoagulation. Labs appear to be stable Is possibly getting Mirena but is still contemplating future . I asked her to discuss her risk with Dr. Herrmann. She will need to be on lovenox until she stops breast feeding. After this remains the question of resuming plavix or consider DOAC. Initial Visit, May 19, 2019: Madhu Rendon presents today at the request of Dr. Herrmann for oncology evaluation. She is a 33 year old female who is currently on Plavix for CVA prophylaxis and is been referred for opinion regarding changing over to Lovenox due to her underlying findings of antiphospholipid antibodies. Her history goes back to January 2016 in [facility] where she had persisting headaches and slurred speech followed by lower extremity weakness. This took a few months to resolve and she is back to her normal state of being but some point in time during her her next she was seen by Dr. Humera Hyde in [place] as well and was found to have an antiphospholipid antibody. I believe this is after a spontaneous . She had a bleeding on aspirin but has been stable on Plavix. In the absence of an active measurable thrombosis she was not given full dose attic regulation. The thinking that perhaps the CVA symptoms were mediated by a transient ischemic event precipitated by hormone therapy. Nevertheless now that she has been identified antiphospholipid antibody which she believes to be anticardiolipin antibody she will require some form of prophylaxis. REVIEW OF SYSTEMS Per HPI and otherwise negative by full review of organ systems. ' ECOG PERFORMANCE STATUS: 0 PHYSICAL EXAMINATION: Vitals: BP 147/75 Pulse 87 Temp (Src) 97.4 (Temporal) Resp 16 Ht 5' 6.024 (1.68m) Wt 238lb 5.1 oz (108.1kg) SpO2 95% BMI 38.44 kg/(m^2). Body surface area is 2.24 meters squared. Exam limited to gross visualization where appropriate. Gen.: This is an age-appropriate patient in no acute distress. Head: Appears atraumatic with no visible lesions. Eyes: Pupils equally round and reactive to light, extraocular muscles are intact. Neck: Supple. Respiratory: Appears to be respiring comfortably. Neurologic: Nonfocal to gross visualization. Alert and oriented 3. Psychiatric: No evidence of inappropriate anxiety or depression. Skin: Visible areas of skin without rash, lesions, wounds or petechiae. ___ ALLERGIES: ALLERGIES Allergen Reactions Ciprofloxacin Other: See Comments, Unknown Dizziness, weakness sweating Ciprofloxacin-Fluoc* Other: See Comments Dizziness, weakness sweating Lactose GI Upset Diarrhea Seasonal Allergies GI Upset, Other: See Comments Lactalbumin Unknown, GI Upset Crampy and gassy Milk Other: See Comments Crampy and gassy Diarrhea Other reaction(s): GI Upset Crampy and gassy Milk Containing Pro* Other: See Comments Crampy and gassy Diarrhea Other reaction(s): GI Upset Crampy and gassy MEDICATIONS: enoxaparin (LOVENOX) 40 mg/0.4 mL INJECT THE CONTENTS OF ONE SYRINGE (0.4 ML) SUBCUTANEOUSLY EVERY 24 HOURS metFORMIN ER (GLUCOPHAGE XR) 500 mg 24 hr tablet multivitamin tablet Take 1 tablet by mouth once daily. PRO FE 180 mg iron cap (Patient not taking: Reported on 06/15/2023) levothyroxine (SYNTHROID) 25 mcg tablet Take 25 mcg by mouth. (Patient not taking: Reported on 07/27/2022) LABORATORY VALUES: WBC (k/uL) Date Value 06/15/2023 8.04 RBC (m/uL) Date Value 06/15/2023 4.56 Hemoglobin (g/dL) Date Value 06/15/2023 13.4 Hematocrit (%) Date Value 06/15/2023 39.2 MCV (fL) Date Value 06/15/2023 86.0 MCH (pg) Date Value 06/15/2023 29.4 MCHC (g/dL) Date Value 06/15/2023 34.2 RDW-CV (%) Date Value 06/15/2023 13.4 Platelet Count (k/uL) Date Value 06/15/2023 348 MPV (fL) Date Value 06/15/2023 9.8 Glucose (mg/dL) Date Value 06/15/2023 134 (H) BUN (mg/dL) Date Value 06/15/2023 11 Creatinine (mg/dL) Date Value 06/15/2023 0.78 Sodium (mmol/L) Date Value 06/15/2023 138 Potassium (mmol/L) Date Value 06/15/2023 3.8 Chloride (mmol/L) Date Value 06/15/2023 103 CO2 (mmol/L) Date Value 06/15/2023 22 Protein, Total (g/dL) Date Value 06/15/2023 7.8 Albumin (g/dL) Date Value 06/15/2023 4.8 Calcium, Total (mg/dL) Date Value 06/15/2023 9.9 Alkaline Phosphatase (U/L) Date Value 06/15/2023 100 Bilirubin, Total (mg/dL) Date Value 06/15/2023 0.2 AST (U/L) Date Value 06/15/2023 23 ALT (U/L) Date Value 06/15/2023 36 DIAGNOSIS: (E55.9) Vitamin D deficiency (primary encounter diagnosis) Plan: CBC + DIFF, COMP METABOLIC PANEL, IRON + TIBC, FERRITIN BLD, VITAMIN B12 BLOOD, FOLATE SERUM, CALCIUM IONIZED BLOOD, PTH INTACT BLD, VITAMIN D 25 HYDROXY (E83.52) Hypercalcemia Plan: CBC + DIFF, COMP METABOLIC PANEL, IRON + TIBC, FERRITIN BLD, VITAMIN B12 BLOOD, FOLATE SERUM, CALCIUM IONIZED BLOOD, PTH INTACT BLD, VITAMIN D 25 HYDROXY (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) Plan: CBC + DIFF, COMP METABOLIC PANEL, IRON + TIBC, FERRITIN BLD, VITAMIN B12 BLOOD, FOLATE SERUM, CALCIUM IONIZED BLOOD, PTH INTACT BLD, VITAMIN D 25 HYDROXY PAST MEDICAL HISTORY Diagnosis Date Antiphospholipid antibody syndrome (HCC) Asthma Bilateral ovarian cysts Blood in stool Clear vaginal discharge Complex cyst of right ovary Dysuria during Fluid imbalance History of miscarriage, currently Hypercoagulable state (HCC) Iron deficiency anemia of 03/27/2022 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 Kidney stones early 20's Missed menses Nausea and vomiting Rectal bleeding PAST SURGICAL HISTORY Procedure Laterality Date BREAST BIOPSY HX Negative EXTRACTION, ERUPTED TOOTH OR EXPOSED ROOT (ELEVATION AND/OR FORCEPS REMOVAL) Social History Tobacco Use Smoking status: Never Smokeless tobacco: Never Vaping Use Vaping Use: Never used Substance Use Topics Alcohol use: No Drug use: No FAMILY HISTORY Adopted: Yes Problem Relation Age of Onset Stroke Father Diabetes Father Type 2 Multiple Sclerosis Maternal Aunt Heart Maternal Grandfather other (Other) Daughter sacral dimple, frbrous tisse of tail bone other (Other) Mother Spinabifida Diabetes Sister type 2 Diabetes Paternal Grandmother type 2 Diabetes Paternal Grandfather type 2 I spent a total of 30 minutes on the date of the service which included preparing to see the patient, [id number] patient care, completing clinical documentation, performing a medically appropriate examination, counseling and educating the patient/family/caregiver, ordering medications, tests, or p rocedures, independently interpreting results (not separately reported), communicating results to the patient/family/caregiver, and care coordination (not separately reported). Salvador Calix MD, CPE Hematology [facility] Oncology Services Provided at: [place], [place] Scribe Attestation: This note was scribed by Nathaly Carney on June 15, 2023 under the direction and supervisionof Dr. Salvador Calix. I attest that all of the information documented is correct to the best of my knowledge. Provider Attestation: I, Salvador Calix MD, attest that all information documented by the above scribe is correct, and was supervised by me and under my direction. CC: MD Wilton Day, [address] [place] [address] Humaira Gaviria MD [address] [place] [id number] MD Cosmo Kingston MD Michael Blank, MD documented in this encounterOhio[facility]-16-[facility]24 NoteHNO ID: [id number] Author: SALVADOR CALIX MD Service: ? Author Type: Physician Type: Progress Notes Filed: 06/17/2023 09:02 Note Text: NAME: Madhu Rendon CLINIC NO.: [id number] DATE OF SERVICE: June 15, 2023 (Levon) Some elements in this clinic note that are critical to medical decision making have been carefully reviewed and included from a prior clinic note dated: May 31, 2023 (Levon) Additional Clinicians involved in Madhu Rendon's care: Drs. Herrmann, Jorge Monge, Humaira Gaviria, Dr. Boothe CC: hypercoag state. ASSESSMENT: 37 year old woman 25 weeks presents with a prior history of CVA in 2016 and an antiphospholipid antibody that was identified much later in 2018. These were found in [place], [place]. I don't have access to these results. Patient believes that she has anticardiolipin antibodies but wasn't sure. She has been on Plavix for approximately year and a half and had bled heavily on aspirin preceding this. She currently has no evidence of active thrombosis. We had discussed the potential etiology of antiphospholipid antibodies in the context of her symptoms which preceded her diagnosis by approximately 2 years presenting as a CVA. At some point in time she had a vW disease workup but we don't have that specific data from prior workup. After discussion with her neurologist, Dr. Jorge Monge, we put her on prophylactic dose Lovenox throughout her prior but is now again and at 25 weeks. Had difficulty with associated diabetes. Recalls having had a target-like rash shortly before presenting to [place] in 2015 with headaches and was diagnosed with a CVA. - She saw Dr. Baugh but no relevant conclusion was made. She remains on Lovenox - still breast feeding. No clinical need to recheck her APL Ab or Cardiolipin Ab's as results will not change our treatment plan. PLAN: Triage to call lab results Please see Dr. Jorge Monge - for vision changes and numbness of face Continue Lovenox - patient prefers 40 mg (rather than rec 80mg) Encouraged her to reconsider Take B12 supplement in the form of a sublingual tablet RTC in 3 months Labs same day Vitamin D, TSH, Calcium with CMP ___ HPI: Updated Visit, June 15, 2023: Madhu returns today with her youngest two children. She is still breast feeding. Numbness and vision changes both have subsided, she still plans to see Dr. Monge soon. When she had a stoke in [place], she had symptoms up to a month before: uncontrollable headache, BP was elevated, knee stiffness, and blurry vision. Right facial drooping and difficulty speaking sent her to the hospital. She continues to take vitamins. Updated Visit, May 31, 2023: Virtual Visit Shadow over right eye and some numbness of her face. Feels like she's getting itchy under her skin - intermittent electric-shocks . Abdominal contractions that feel like labor but not low in the pelvis. Weight is unchanged and she is having trouble losing weight. Feels she has a lot of fullness in her neck/throat. Could not operate her video. Updated Visit, March 19, 2023: Virtual Visit: Doing ok but is getting sick. Was not able to connect video. Vitamin D is low. Having trouble with blood sugars Baby and all kids doing well. Still breast feeding. Updated Visit, December 22, 2022: Virtual visit Had a few more bloody bowel movements after we spoke last time. But resolved more than a month ago. Labs are good - no need for iron . B12 is on the lower end of normal. Otherwise and I think unrelated - weak, urinating a lot and mouth is dry all the time for the past few days. Updated Visit, September 28, 2022: Virtual Visit Had blood with BM x2 - has had this before and stayed on Lovenox Hgb 13.1 @ [facility] Recommended ER if persisting bleeding but she would prefer to stay on Lovenox for now. Updated Visit, July 27, 2022: Madhu returns today and has 2 of her youngest children with her. She didn't hemorrhage with her most recent delivery and has a healthy baby girl age 11 weeks. Her 3 year old son is with her too. Joints ache but perhaps related to 4 children 14- 11 weeks. Updated Visit, March 27, 2022: Madhu is 36 years old and is doing well with her current maintain on low-dose prophylactic Lovenox. Doing well overall but is having some bleeding following oral iron therapy due to constipation. May qualify for IV iron which will help her. She hemorrhaged after her last and required transfusion. 33 weeks - scheduled to be induced at 39 weeks Updated Visit, January 30, 2022: Madhu returns at 25 weeks of her current . She remains on prophylactic dose Lovenox. Appreciate my colleagues opinion regarding her anticoagulation and she found Dr. Hamlin's opinion very helpful as well. We (more content not included)...[facility]02-12-2024 Miscellaneous Notes* Telephone Encounter - Ebony Redding Ma - 06/11/2023 10:43 AM EST Labs for appointment on 06/15. Ebony Redding Ma documented in this encounterOhio[facility]02-12-2024 Miscellaneous Notes* Telephone Encounter - Nicol Avila - 06/11/2023 9:[address] Monge office spoke with Brinda. Patient is scheduled to see Dr Monge on 06/20. Nicol Salgado * Telephone Encounter - Nicol Avila - 06/07/2023 10:[address] Monge office spoke with Ingrid. She states they have received this referral and are working with Dr. Monge see when to schedule patient. Right now they are looking at possibly getting patient scheduled sometime next week. I will call back next week to check the status of this appointment. Nicol Salgado * Telephone Encounter - Valeri Moscoso - 06/06/2023 8:37 AM EST Records faxed. * Telephone Encounter - Nicol Avila - 06/04/2023 9:12 AM EST Bhavna: Information ready for you. Nicol Salgado * Telephone Encounter - Marleen Smith - 06/01/2023 9:[address] Luna is referring Madhu back to see Dr. Peng Monge / Riaz / Yadi Dx: vision changes and numbness of face. Pt states that it has been a few years since she was last seen by him. [facility] [address] Bhavna, Please fax records Andres, Please follow up on this appt. Thank you documented in this encounterOhio[facility]02-01-2024 History of Present illness Narrative* Salvador Calix MD - 05/31/2023 4:30 PM EST Images from the original note were not included. NAME: Madhu Rendon CLINIC NO.: [id number] DATE OF SERVICE: May 31, 2023 (Levon) Some elements in this clinic note that are critical to medical decision making have been carefully reviewed and included from a prior clinic note dated: March 19, 2023 (Levon) Additional Clinicians involved in Madhu Rendon's care: Drs. Herrmann, Jorge Monge, Humaira Gaviria, VIRTUAL VISIT PROGRESS NOTE This is a virtual visit using [employer] Zoom Video Visit. It required patient- provider interaction for the medical decision making as documented below. I have communicated my name and active licensure. The patient's identity and physical location wereverified at the time of this visit. Either the patient or their legal labor service representative has been informed of the risks and benefits of -- and alternatives to -- treatment through a remote evaluation andconsents to proceed with the evaluation remotely. CC: hypercoag state. ASSESSMENT: 37 year old woman 25 weeks presents with a prior history of CVA in 2016 and anantiphospholipid antibody that was identified much later in 2018. These were found in [place], [place]. I don't have access to these results. Patient believes that she has anticardiolipin antibodies but wasn't sure. She has been on Plavix for approximately year and a half and had bled heavily on aspirin preceding this. She currently has no evidence of active thrombosis. We had discussed the potential etiology of antiphospholipid antibodies in the context of her symptoms which preceded her diagnosis by approximately2 years presenting as a CVA. At some point in time she had a vW disease workup but we don't have that specific data from prior workup. After discussion with her neurologist, Dr. Jorge Monge, we put her on prophylactic dose Lovenox throughout her prior but is now again and at 25 weeks. Had difficulty with associated diabetes. Recalls having had a target-like rash shortly before presenting to [place] in 2016 with headaches and was diagnosed with a CVA. - She saw Dr. Baugh but no relevant conclusion was made. She remains on Lovenox - still breast feeding. No clinical need to recheck her APL Ab or Cardiolipin Ab's as results will not change our treatmentplan. PLAN: Please see Dr. Jorge Monge - for vision changes and numbness of face. Continue Lovenox - patient prefers 40 mg (rather than rec 80mg) Encouraged her to reconsider. Take B12 supplement in the form of a sublingual tablet. RTC in 2 weeks Labs same day Vitamin D, TSH, Calcium with CMP ___ HPI: Updated Visit, May 31, 2023: Virtual Visit Shadow over right eye and some numbness of her face. Feels like she's getting itchy under her skin - intermittent electric-shocks . Abdominal contractions that feel like labor but not low in the pelvis. Weight is unchanged and she is having trouble losing weight. Feels she has a lot of fullness in her neck/throat. Could not operate her video. Updated Visit, March 19, 2023: Virtual Visit: Doing ok but is getting sick. Was not able to connect video. Vitamin D is low. Having trouble with blood sugars Baby and all kids doing well. Still breast feeding. Updated Visit, December 22, 2022: Virtual visit Had a few more bloody bowel movements after we spoke last time. But resolved more than a month ago. Labs are good - no need for iron . B12 is on the lower end of normal. Otherwise and I think unrelated - weak, urinating a lot and mouth is dry all the time for the past few days. Updated Visit, September 28, 2022: Virtual Visit Had blood with BM x2 - has had this before and stayed on Lovenox Hgb 13.1 @ [facility] Recommended ER if persisting bleeding but she would prefer to stay on Lovenox for now. Updated Visit, July 27, 2022: Madhu returns today and has 2 of her youngest children with her. She didn't hemorrhage with her most recent delivery and has a healthy baby girl age 11 weeks. Her 3 year old son is with her too. Joints ache but perhaps related to 4 children 14- 11 weeks. Updated Visit, March 27, 2022: Madhu is 36 years old and is doing well with her current maintain on low-dose prophylactic Lovenox. Doing well overall but is having some bleeding following oral iron therapy due to constipation. May qualify for IV iron which will help her. She hemorrhaged after her last and required transfusion. 33 weeks - scheduled to be induced at 39 weeks Updated Visit, January 30, 2022: Madhu returns at 25 weeks of her current . She remains on prophylactic dose Lovenox. Appreciate my colleagues opinion regarding her anticoagulation and she found Dr. Hamlin's opinion very helpful as well. We reviewed the recommendations together, but we will follow her preference to treatment. She prefers to stay on the 40 mg dose daily and will monitor for hemorrhage as she has done in the past. She is having trouble with hyperglycemia in and also has become mildly anemic although, this is most likely due to plasma expansion. I have checked iron studies and those are pending. She is otherwise getting along very well. 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 In any case I do think thatthis is a risk factor for her stroke as well as for recurrent loss. The fact that she hashad a stroke and also had 1 late loss classifies her as having the antiphospholipid syndrome. Though she has done well on at least one while on Lovenox the standard of care would be to have her on both Lovenox and low-dose aspirin. She is somewhat hesitant to take aspirin as she hashad some intolerance before, but I encouraged her to consider 81 mg of daily aspirin. While 1 can make an argument for full dose anticoagulation during because of her previous stroke, giventhat she is also on aspirin I would recommend that we simply at this point increase her Lovenox dose to 80 mg daily. However in the period I would increase to a therapeutic range of at least 80 mg twice daily. She has not had antiphospholipid antibody testing since June 2019, and I would recommend repeatingan antibody panel at this time. I have put in a standing order for lupus anticoagulant testing. (Earl, 08/2021) Updated Visit, August 01, 2021: Doing well overall and has resolved some of her symptoms. No additional stroke like symptoms. Stillbreastfeeding and will maintain lovenox until she is finished. Has recurring UTI with pseudomonas - having mild symptoms now. Hair is dry and has patches Updated Visit, December 23, 2020: Father at the End of September 2020 so she's had a rough few months. He was 73 and had a colorectal cancer. Mother also had colon cancer and at age 69. Both lived in [facility] but she was adopted. She was not able to see ID in October and will be seeing Dr. Baugh next week. Also will have her see Dr. Hamlin for her clotting disorder and make any other recommendations to optimize her treatment. Updated Visit, October 08, 2020: Telephone only Received call from pt stating she was seen in [facility] ER for numbness in her chest, throat, and extremities, and sob which has been worsening over the last week. We arranged a telephone visit for her franci questions with me. Madhu Rendon is a 34 year old female seen for Hypercoagulable state and recent concerns and symptoms that required her to be seen at [facility] ER. She went to the ER with Gradual worsening of breathing after progressive tingling of fingers and legs. She currently remains very fatigued even though she is sleeping well. Now recalls that before her stroke she remembers having a bull's eye rash and was seen with severe headaches in [place], [place] - was found to have a stroke in 2016. Updated Visit, May 05, 2020: Madhu is 34 years old and returns for routine check in for chronic anticoagulation of her hypercoagulable disorder that presented with a CVA approximately 2018. Full work-up has revealed some low-level anticardiolipin antibodies in an indeterminate range, but given her's symptoms and thrombotic event her neurologist and I feel that it be appropriate to at least put her on prophylactic dosing of anticoagulation. She is currently on Lovenox because she is still breast feeding her 4-month-old son. Recently she reports that she had numbness preceding a root canal and was sent to [facility] for MRI which was negative but non-contrasted. She like her chemistries checked because she's had hyponatremia before. She also complains that even though she is still breast feeding, she is still gaining weight hasn'tbeen eating healthy as food. She also has started vaginal spotting and has started Her menses but is not heavy at this time. Fatigue is pronounced but isn't anemic today. All labs reviewed. Updated Visit, February 02, 2020: Madhu is 34 yo and delivered a healthy baby boy who is now 3 weeks old. She bled after and was downto 8.5 but didn't need transfusions. She hemorrhaged with each of her prior 2 pregnancies. Daughteris Autistic 51/2. Her son who is 12 had Tics when he was 6. Discussed briefly the risks of further with requirements of anticoagulation. Labs appear to be stable Is possibly getting Mirena but is still contemplating future . I asked her to discuss her risk with Dr. Herrmann. She will need to be on lovenox until she stops breast feeding. After this remains the question of resuming plavix or consider DOAC. Initial Visit, May 19, 2019: Madhu Rendon presents today at the request of Dr. Herrmann for oncology evaluation. She is a 33 year old female who is currently on Plavix for CVA prophylaxis and is been referred for opinion regarding changing over to Lovenox due to her underlying findings of antiphospholipid antibodies. Her history goes back to January 2016 in [facility] where she had persisting headaches and slurred speech followed by lower extremity weakness. This took a few months to resolve and she is back to her normal state of being but some point in time during her her next she was seen by Dr. Humera Hyde in [place] as well and was found to have an antiphospholipid antibody. I believe this is after a spontaneous . She had a bleeding on aspirin but has been stable on Plavix. In the absence of an active measurable thrombosis she was not given full dose attic regulation. The thinking that perhaps the CVA symptoms were mediated by a transient ischemic event precipitated by hormone therapy. Nevertheless now that she has been identified antiphospholipid antibody which she believes to be anticardiolipin antibody she will require some form of prophylaxis. REVIEW OF SYSTEMS Per HPI and otherwise negative by full review of organ systems. ' ECOG PERFORMANCE STATUS: 0 PHYSICAL EXAMINATION: Vitals: LMP 04/08/2019 There is no height or weight on file to calculate BSA. No exam on audio visit ___ ALLERGIES: ALLERGIES Allergen Reactions Ciprofloxacin Other: See Comments, Unknown Dizziness, weakness sweating Ciprofloxacin-Fluoc* Other: See Comments Dizziness, weakness sweating Lactose GI Upset Diarrhea Seasonal Allergies GI Upset, Other: See Comments Lactalbumin Unknown, GI Upset Crampy and gassy Milk Other: See Comments Crampy and gassy Diarrhea Other reaction(s): GI Upset Crampy and gassy Milk Containing Pro* Other: See Comments Crampy and gassy Diarrhea Other reaction(s): GI Upset Crampy and gassy MEDICATIONS: enoxaparin (LOVENOX) 40 mg/0.4 mL INJECT THE CONTENTS OF ONE SYRINGE (0.4 ML) SUBCUTANEOUSLY EVERY 24 HOURS metFORMIN ER (GLUCOPHAGE XR) 500 mg 24 hr tablet PRO FE 180 mg iron cap levothyroxine (SYNTHROID) 25 mcg tablet Take 25 mcg by mouth. (Patient not taking: Reported on 07/27/2022) multivitamin tablet Take 1 tablet by mouth once daily. LABORATORY VALUES: WBC (k/uL) Date Value 05/28/2023 8.01 RBC (m/uL) Date Value 05/28/2023 4.71 Hemoglobin (g/dL) Date Value 05/28/2023 13.7 Hematocrit (%) Date Value 05/28/2023 40.5 MCV (fL) Date Value 05/28/2023 86.0 MCH (pg) Date Value 05/28/2023 29.1 MCHC (g/dL) Date Value 05/28/2023 33.8 RDW-CV (%) Date Value 05/28/2023 13.4 Platelet Count (k/uL) Date Value 05/28/2023 339 MPV (fL) Date Value 05/28/2023 10.1 Glucose (mg/dL) Date Value 05/28/2023 100 (H) BUN (mg/dL) Date Value 05/28/2023 10 Creatinine (mg/dL) Date Value 05/28/2023 0.78 Sodium (mmol/L) Date Value 05/28/2023 137 Potassium (mmol/L) Date Value 05/28/2023 3.8 Chloride (mmol/L) Date Value 05/28/2023 101 CO2 (mmol/L) Date Value 05/28/2023 24 Protein, Total (g/dL) Date Value 05/28/2023 8.0 Albumin (g/dL) Date Value 05/28/2023 4.8 Calcium, Total (mg/dL) Date Value 05/28/2023 10.7 (H) Alkaline Phosphatase (U/L) Date Value 05/28/2023 95 Bilirubin, Total (mg/dL) Date Value 05/28/2023 0.2 AST (U/L) Date Value 05/28/2023 17 ALT (U/L) Date Value 05/28/2023 24 DIAGNOSIS: (D68.59) Primary hypercoagulable state (HCC) (primary encounter diagnosis) (I69.328) CVA, old, speech/language deficit (E83.52) Hypercalcemia Plan: VITAMIN D 25 HYDROXY, TSH BLD, CALCIUM IONIZED BLOOD, PTH, INTACT (WITHOUT CALCIUM), PTH, INTACT (WITHOUT CALCIUM) (E55.9) Vitamin D deficiency Plan: VITAMIN D 25 HYDROXY, CALCIUM IONIZED BLOOD, PTH, INTACT (WITHOUT CALCIUM), PTH, INTACT (WITHOUT CALCIUM) (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) (R53.81, R53.83) Malaise and fatigue Plan: TSH BLD PAST MEDICAL HISTORY Diagnosis Date Antiphospholipid antibody syndrome (HCC) Asthma Bilateral ovarian cysts Blood in stool Clear vaginal discharge Complex cyst of right ovary Dysuria during Fluid imbalance History of miscarriage, currently Hypercoagulable state (HCC) Iron deficiency anemia of 03/27/2022 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 Kidney stones early 20's Missed menses Nausea and vomiting Rectal bleeding PAST SURGICAL HISTORY Procedure Laterality Date BREAST BIOPSY HX Negative EXTRACTION, ERUPTED TOOTH OR EXPOSED ROOT (ELEVATION AND/OR FORCEPS REMOVAL) Social History Tobacco Use Smoking status: Never Smokeless tobacco: Never Vaping Use Vaping Use: Never used Substance Use Topics Alcohol use: No Drug use: No FAMILY HISTORY Adopted: Yes Problem Relation Age of Onset Stroke Father Diabetes Father Type 2 Multiple Sclerosis Maternal Aunt Heart Maternal Grandfather other (Other) Daughter sacral dimple, frbrous tisse of tail bone other (Other) Mother Spinabifida Diabetes Sister type 2 Diabetes Paternal Grandmother type 2 Diabetes Paternal Grandfather type 2 I spent a total of 30 minutes on the date of the service which included preparing to see the patient, completing clinical documentation, counseling and educating the patient/family/caregiver, ordering medications, tests, or procedures, and independently interpreting results (not separately reported). Salvador Calix MD, CPE Hematology [facility] Oncology Services Provided at: [place], [place] CC: MD Wilton Day, [address] [place] [address] Humaira Gaviria MD [address] [place] [id number] MD Cosmo Kingston MD Michael Blank, MD documented in this encounter[facility] NoteHNO ID: [id number] Author: SALVADOR CALIX MD Service: ? Author Type: Physician Type: Progress Notes Filed: 06/05/2023 20:39 Note Text: NAME: Madhu Rendon CLINIC NO.: [id number] DATE OF SERVICE: May 31, 2023 (Levon) Some elements in this clinic note that are critical to medical decision making have been carefully reviewed and included from a prior clinic note dated: March 19, 2023 (Levon) Additional Clinicians involved in Madhu Rendon's care: Jorge Mcwilliams, Humaira Gaviria, Dr. Boothe VIRTUAL VISIT PROGRESS NOTE This is a virtual visit using Chat& (ChatAnd)om Video Visit. It required patient-provider interaction for the medical decision making as documented below. I have communicated my name and active licensure. The patient's identity and physical location were verified at the time of this visit. Either the patient or their legal labor service representative has been informed of the risks and benefits of -- and alternatives to -- treatment through a remote evaluation and consents to proceed with the evaluation remotely. CC: hypercoag state. ASSESSMENT: 37 year old woman 25 weeks presents with a prior history of CVA in 2016 and an antiphospholipid antibody that was identified much later in 2018. These were found in [place], [place]. I don't have access to these results. Patient believes that she has anticardiolipin antibodies but wasn't sure. She has been on Plavix for approximately year and a half and had bled heavily on aspirin preceding this. She currently has no evidence of active thrombosis. We had discussed the potential etiology of antiphospholipid antibodies in the context of her symptoms which preceded her diagnosis by approximately 2 years presenting as a CVA. At some point in time she had a vW disease workup but we don't have that specific data from prior workup. After discussion with her neurologist, Dr. Jorge Monge, we put her on prophylactic dose Lovenox throughout her prior but is now again and at 25 weeks. Had difficulty with associated diabetes. Recalls having had a target-like rash shortly before presenting to [place] in 2015 with headaches and was diagnosed with a CVA. - She saw Dr. Baugh but no relevant conclusion was made. She remains on Lovenox - still breast feeding. No clinical need to recheck her APL Ab or Cardiolipin Ab's as results will not change our treatment plan. PLAN: Please see Dr. Jorge Monge - for vision changes and numbness of face. Continue Lovenox - patient prefers 40 mg (rather than rec 80mg) Encouraged her to reconsider. Take B12 supplement in the form of a sublingual tablet. RTC in 2 weeks Labs same day Vitamin D, TSH, Calcium with CMP ___ HPI: Updated Visit, May 31, 2023: Virtual Visit Shadow over right eye and some numbness of her face. Feels like she's getting itchy under her skin - intermittent electric-shocks . Abdominal contractions that feel like labor but not low in the pelvis. Weight is unchanged and she is having trouble losing weight. Feels she has a lot of fullness in her neck/throat. Could not operate her video. Updated Visit, March 19, 2023: Virtual Visit: Doing ok but is getting sick. Was not able to connect video. Vitamin D is low. Having trouble with blood sugars Baby and all kids doing well. Still breast feeding. Updated Visit, December 22, 2022: Virtual visit Had a few more bloody bowel movements after we spoke last time. But resolved more than a month ago. Labs are good - no need for iron . B12 is on the lower end of normal. Otherwise and I think unrelated - weak, urinating a lot and mouth is dry all the time for the past few days. Updated Visit, September 28, 2022: Virtual Visit Had blood with BM x2 - has had this before and stayed on Lovenox Hgb 13.1 @ [facility] Recommended ER if persisting bleeding but she would prefer to stay on Lovenox for now. Updated Visit, July 27, 2022: Madhu returns today and has 2 of her youngest children with her. She didn't hemorrhage with her most recent delivery and has a healthy baby girl age 11 weeks. Her 3 year old son is with her too. Joints ache but perhaps related to 4 children 14- 11 weeks. Updated Visit, March 27, 2022: Madhu is 36 years old and is doing well with her current maintain on low-dose prophylactic Lovenox. Doing well overall but is having some bleeding following oral iron therapy due to constipation. May qualify for IV iron which will help her. She hemorrhaged after her last and required transfusion. 33 weeks - scheduled to be induced at 39 weeks Updated Visit, January 30, 2022: Madhu returns at 25 weeks of her current . She remains on prophylactic dose Lovenox. Appreciate my colleagues opinion regarding her anticoagulation and she found Dr. Lujan (more content not included)...[facility] 05-31-2023 Instructions* Patient Instructions* Salvador Calix MD - 05/31/2023 4:29 PM EST Please see Dr. Jorge Monge - for vision changes and numbness of face. Continue Lovenox - patient prefers 40 mg (rather than rec 80mg) Encouraged her to reconsider. Take B12 supplement in the form of a sublingual tablet. RTC in 2 weeks Labs same day Vitamin D, TSH, Calcium with CMP documented in this encounterOhio[facility]01-26-[facility] Hospital Discharge instructions Patient Education 05/25/2023 12:02:10 Eustachian Tube Dysfunction Eustachian Tube Dysfunction Eustachian tube dysfunction refers to a condition in which a blockage develops in the narrow passage that connects the middle ear to the back of the nose (eustachian tube). The eustachian tube regulates air pressure in the middle ear by letting air move between the ear and nose. It also helps to drain fluid from the middle ear space. Eustachian tube dysfunction can affect one or both ears. When the eustachian tube does not functionproperly, air pressure, fluid, or both can build up in the middle ear. What are the causes? This condition occurs when the eustachian tube becomes blocked or cannot open normally. Common causes of this condition include: Ear infections. Colds and other infections that affect the nose, mouth, and throat (upper respiratory tract). Allergies. Irritation from cigarette smoke. Irritation from stomach acid coming up into the esophagus (gastroesophageal reflux). The esophagus is the part of the body that moves food from the mouth to the stomach. Sudden changes in air pressure, such as from descending in an airplane or scuba diving. Abnormal growths in the nose or throat, such as: ?Growths that line the nose (nasal polyps). ?Abnormal growth of cells (tumors). ?Enlarged tissue at the back of the throat (adenoids). What increases the risk? You are more likely to develop this condition if: You smoke. You are overweight. You are a child who has: ?Certain defects of the mouth, such as cleft palate. ?Large tonsils or adenoids. What are the signs or symptoms? Common symptoms of this condition include: A feeling of fullness in the ear. Ear pain. Clicking or popping noises in the ear. Ringing in the ear (tinnitus). Hearing loss. Loss of balance. Dizziness. Symptoms may get worse when the air pressure around you changes, such as when you travel to an areaof high elevation, fly on an airplane, or go scuba diving. How is this diagnosed? This condition may be diagnosed based on: Your symptoms. A physical exam of your ears, nose, and throat. Tests, such as those that measure: ?The movement of your eardrum. ?Your hearing (audiometry). How is this treated? Treatment depends on the cause and severity of your condition. In mild cases, you may relieve your symptoms by moving air into your ears. This is called popping the ears. In more severe cases, or if you have symptoms of fluid in your ears, treatment may include: ?Medicines to relieve congestion (decongestants). ?Medicines that treat allergies (antihistamines). ?Nasal sprays or ear drops that contain medicines that reduce swelling (steroids). ?A procedure to drain the fluid in your eardrum. In this procedure, a small tube may be placed in the eardrum to: ?Drain the fluid. ?Restore the air in the middle ear space. ?A procedure to insert a balloon device through the nose to inflate the opening of the eustachian tube (balloon dilation). Follow these instructions at home: Lifestyle Do not do any of the following until your health care provider approves: ?Travel to high altitudes. ?Fly in airplanes. ?Work in a pressurized cabin or room. ?Scuba dive. Do not use any products that contain nicotine or tobacco. These products include cigarettes, chewing tobacco, and vaping devices, such as e-cigarettes. If you need help quitting, ask your health careprovider. Keep your ears dry. Wear fitted earplugs during showering and bathing. Dry your ears completely after. General instructions Take nzde-rhg-isscycm and prescription medicines only as told by your health care provider. Use techniques to help pop your ears as recommended by your health care provider. These may include: ?Chewing gum. ?Yawning. ?Frequent, forceful swallowing. ?Closing your mouth, holding your nose closed, and gently blowing as if you are trying to blow air out of your nose. Keep all follow-up visits. This is important. Contact a health care provider if: Your symptoms do not go away after treatment. Your symptoms come back after treatment. You are unable to pop your ears. You have: ?A fever. ?Pain in your ear. ?Pain in your head or neck. ?Fluid draining from your ear. Your hearing suddenly changes. You become very dizzy. You lose your balance. Get help right away if: You have a sudden, severe increase in any of your symptoms. Summary Eustachian tube dysfunction refers to a condition in which a blockage develops in the eustachian tube. It can be caused by ear infections, allergies, inhaled irritants, or abnormal growths in the nose or throat. Symptoms may include ear pain or fullness, hearing loss, or ringing in the ears. Mild cases are treated with techniques to unblock the ears, such as yawning or chewing gum. More severe cases are treated with medicines or procedures. This information is not intended to replace advice given to you by your health care provider. Make sure you discuss any questions you have with your health care provider. Document Revised: 06/27/2021 Document Reviewed: 06/27/2021 [employer] Patient Education 2022 [employer]. 05/25/2023 12:02:06 Dyshidrotic Eczema Dyshidrotic Eczema Dyshidrotic eczema, also known as pompholyx, is a type of eczema that causes very itchy, fluid-filled blisters (vesicles) to form on the hands and feet. It is more common before age 40, though it canaffect people of any age. There is no cure, but treatment and certain lifestyle changes can help relieve symptoms. What are the causes? The cause of this condition is not known. What increases the risk? You are more likely to develop this condition if: You wash your hands frequently. You have a personal or family history of eczema, allergies, asthma, or hay fever. You are allergic to metals, such as nickel or cobalt. You work with cement. You smoke. What are the signs or symptoms? Symptoms of this condition may affect the hands, the feet, or both. Symptoms may come and go (recur), and may include: Severe itching. This may happen before blisters appear. Blisters. These may form suddenly. ?In the early stages, blisters may form near the fingertips. ?In severe cases, blisters may grow to large blister masses (bullae). ?Blisters resolve in 2 3 weeks without bursting. This is followed by a dry phase in which itching eases. Pain and swelling. Cracks or long, narrow openings (fissures) in the skin. Severe dryness. Ridges on the nails. How is this diagnosed? This condition may be diagnosed based on: Your symptoms and a physical exam. Your medical history. Skin scrapings to rule out a fungal infection. Testing a swab of fluid for bacteria (culture). Removing a small piece of skin (biopsy) to test for infection or to rule out other conditions. Skin patch tests. These tests involve using patches that contain possible allergens and placing them on your back. Your health care provider will wait a few days and then check to see if an allergic reaction occurred. These tests may be done if your health care provider suspects allergic reactions,or to rule out other types of eczema. You may be referred to a health care provider who specializes in skin conditions (application systems architect) tohelp diagnose and treat this condition. How is this treated? There is no cure for this condition, but treatment can help relieve symptoms. Depending on the amount and severity of the blisters, your health care provider may suggest: Avoiding allergens, irritants, or triggers that worsen symptoms. This may involve lifestyle changes, such as: ?Using different lotions or soaps. ?Avoiding hot weather or places that will cause you to sweat a lot. ?Managing stress with coping techniques, such as relaxation and exercise, and asking for help when you need it. ?Diet changes as recommended by your health care provider. Using a clean, damp towel (cool compress) to relieve symptoms. Soaking in a bath that contains a type of salt that relieves irritation (aluminum acetate soaks). Medicines, such as: ?Medicine taken by mouth to reduce itching (oral antihistamines). ?Medicine applied to the skin to reduce swelling and irritation (topical corticosteroids). ?Medicine that reduces the activity of the body's disease-fighting system (immunosuppressants) to treat inflammation. This may be given in severe cases. ?Antibiotic medicines to treat bacterial infection. Light therapy (phototherapy). This involves shining ultraviolet (UV) light on the affected skin in order to reduce itchiness and inflammation. Follow these instructions at home: Bathing and skin care Wash skin gently. After bathing or washing your hands, pat your skin dry. Avoid rubbing your skin. Remove all jewelry before bathing. If the skin under the jewelry stays wet, blisters may form or get worse. Apply cool compresses as told by your health care provider. To do this: ?Soak a clean towel in cool water. ?Wring out excess water until towel is damp. ?Place the towel over the affected skin. Leave the towel on for 20 minutes at a time, 2 3 times a day. Use mild soaps, cleansers, and lotions that do not contain dyes, perfumes, or other irritants. Keep your skin hydrated. To do this: ?Avoid very hot water. Take lukewarm baths or showers. ?Apply moisturizer within 3 minutes of bathing. This locks in moisture. Medicines Take and apply seuz-xku-lumjsfg and prescription medicines only as told by your health care provider. If you were prescribed an antibiotic medicine, take or apply it as told by your health care provider. Do not stop using the antibiotic even if you start to feel better. General instructions Do not use any products that contain nicotine or tobacco. These include cigarettes, chewing tobacco, and vaping devices, such as e-cigarettes. If you need help quitting, ask your health care provider. Identify and avoid triggers and allergens. Keep fingernails short to avoid breaking the skin while scratching. Use waterproof gloves to protect your hands when doing work that keeps your hands wet for a long time. Wear socks to keep your feet dry. Keep all follow-up visits. This is important. Contact a health care provider if: You have symptoms that do not go away. You have signs of infection, such as: ?Crusting, pus, or a bad smell. ?More redness, swelling, or pain. ?Increased warmth in the affected area. Get help right away if: Your skin gets streaking redness with associated pain. Summary Dyshidrotic eczema, also known as pompholyx, is a type of eczema that causes very itchy, fluid-filled blisters (vesicles) to form on the hands and feet. The cause of this condition is not known. There is no cure for this condition, but treatment can help relieve symptoms. Treatment depends on the amount and severity of the blisters. Use mild soaps, cleansers, and lotions that do not contain dyes, perfumes, or other irritants. Keepyour skin hydrated. This information is not intended to replace advice given to you by your health care provider. Make sure you discuss any questions you have with your health care provider. Document Revised: 01/24/2021 Document Reviewed: 01/24/2021 [employer] Patient Education 2022 [employer]. 05/25/2023 12:02:02 Allergies, Adult, Rpmv-rj-Ljoo Allergies, Adult An allergy means that your body reacts to something that bothers it (allergen). This can happen from something that you eat, breathe in, or touch. Allergies often affect the nose, eyes, skin, and stomach. They can be mild, moderate, or very bad (severe). An allergy cannot spread from person to person. They can happen at any age. Sometimes, people outgrow them. What are the causes? Outdoor things, such as pollen, car fumes, and mold. Indoor things, such as dust, smoke, mold, and pets. Foods. Medicines. Things that bother your skin, such as perfume and bug bites. What increases the risk? Having family members with allergies or asthma. What are the signs or symptoms? Symptoms depend on how bad your allergy is. Mild to moderate symptoms Runny nose, stuffy nose, or sneezing. Itchy mouth, ears, or throat. A feeling of mucus dripping down the back of your throat. Sore throat. Eyes that are itchy, red, watery, or puffy. A skin rash, or red, swollen areas of skin (hives). Stomach cramps or bloating. Severe symptoms Very bad allergies to food, medicine, or bug bites may cause a very bad allergy reaction (anaphylaxis). This can be life-threatening. Symptoms include: A red face. Wheezing or coughing. Swollen lips, tongue, or mouth. Tight or swollen throat. Chest pain or tightness, or a fast heartbeat. Trouble breathing or shortness of breath. Pain in your belly (abdomen), vomiting, or watery poop (diarrhea). Feeling dizzy or fainting. How is this treated? Treatment for this condition depends on your symptoms. Treatment may include: Cold, wet cloths for itching and swelling. Eye drops, nose sprays, or skin creams. Washing out your nose each day. A humidifier. Medicines. A change to the foods you eat. Being exposed again and again to tiny amounts of allergens. This helps your body get used to them. You might have: ?Allergy shots. ?Very small amounts of allergen put under your tongue. An emergency shot (auto-injector pen) if you have a very bad allergy reaction. ?This is a medicine with a needle. You can put it into your skin by yourself. ?Your doctor will teach you how to use it. Follow these instructions at home: Medicines Take or apply wubo-num-rqnrfqd and prescription medicines only as told by your doctor. If you are at risk for a very bad allergy reaction, keep an auto-injector pen with you all the time. Eating and drinking Follow instructions from your doctor about what to eat and drink. Drink enough fluid to keep your pee (urine) pale yellow. General instructions If you have ever had a very bad allergy reaction, wear a medical alert bracelet or necklace. Stay away from things that you are allergic to. Keep all follow-up visits as told by your doctor. This is important. Contact a doctor if: Your symptoms do not get better with treatment. Get help right away if: You have symptoms of a very bad allergy reaction. These include: ?A swollen mouth, tongue, or throat. ?Pain or tightness in your chest. ?Trouble breathing. ?Being short of breath. ?Dizziness. ?Fainting. ?Very bad pain in your belly. ?Vomiting. ?Watery poop. These symptoms may be an emergency. Do not wait to see if the symptoms will go away. Get medical help right away. Call your local emergency services (911 in the [place] Do not drive yourself to the hospital. Summary Take or apply wrtf-tul-aiumxmu and prescription medicines only as told by your doctor. Stay away from things you are allergic to. If you are at risk for a very bad allergy reaction, carry an auto-injector pen all the time. Wear a medical alert bracelet or necklace. Very bad allergy reactions can be life-threatening. Get help right away. This information is not intended to replace advice given to you by your health care provider. Make sure you discuss any questions you have with your health care provider. Document Revised: 02/25/2020 Document Reviewed: 02/25/2020 [employer] Patient Education 2022 [employer]. Follow Up Care 05/21/2023 12:21:27 With:PRAVEEN RESENDEZ FAAFP, CHRIS Perez, PED [address] [place] [address]- When:Within 2 Month(s) [facility] 11-20-2023 History of Present illness Narrative* Slavador Calix MD - 03/19/2023 4:45 PM EST Images from the original note were not included. NAME: Madhu Rendon CLINIC NO.: [id number] DATE OF SERVICE: March 19, 2023 (Levon) Some elements in this clinic note that are critical to medical decision making have been carefully reviewed and included from a prior clinic note dated: September 28, 2022 (Levon) Additional Clinicians involved in Madhu Rendon's care: Drs. Herrmann, Jorge Monge, Humaira Gaviria, VIRTUAL VISIT PROGRESS NOTE This is a virtual visit using Audio Visit Only. It required patient-provider interaction for the medical decision making as documented below. I have communicated my name and active licensure. The patient's identity and physical location wereverified at the time of this visit. Either the patient or their legal labor service representative has been informed of the risks and benefits of -- and alternatives to -- treatment through a remote evaluation andconsents to proceed with the evaluation remotely. CC: hypercoag state. ASSESSMENT: 37 year old woman 25 weeks presents with a prior history of CVA in 2016 and anantiphospholipid antibody that was identified much later in 2018. These were found in [place], [place]. I don't have access to these results. Patient believes that she has anticardiolipin antibodies but wasn't sure. She has been on Plavix for approximately year and a half and had bled heavily on aspirin preceding this. She currently has no evidence of active thrombosis. We had discussed the potential etiology of antiphospholipid antibodies in the context of her symptoms which preceded her diagnosis by approximately2 years presenting as a CVA. At some point in time she had a vW disease workup but we don't have that specific data from prior workup. After discussion with her neurologist, Dr. Jorge Monge, we put her on prophylactic dose Lovenox throughout her prior but is now again and at 25 weeks. Had difficulty with associated diabetes. Recalls having had a target-like rash shortly before presenting to [place] in 2016 with headaches and was diagnosed with a CVA. - She saw Dr. Baugh but no relevant conclusion was made. She remains on Lovenox - still breast feeding. No clinical need to recheck her APL Ab or Cardiolipin Ab's as results will not change our treatmentplan. PLAN: Continue Lovenox - patient prefers 40 mg (rather than rec 80mg) Take B12 supplement in the form of a sublingual tablet. Take Vitamin D3 5000 international unit(s) daily Check labs in 8 weeks Phone / Virtual call after ___ HPI: Updated Visit, March 19, 2023: Virtual Visit: Doing ok but is getting sick. Was not able to connect video. Vitamin D is low. Having trouble with blood sugars Baby and all kids doing well. Still breast feeding. Updated Visit, December 22, 2022: Virtual visit Had a few more bloody bowel movements after we spoke last time. But resolved more than a month ago. Labs are good - no need for iron . B12 is on the lower end of normal. Otherwise and I think unrelated - weak, urinating a lot and mouth is dry all the time for the past few days. Updated Visit, September 28, 2022: Virtual Visit Had blood with BM x2 - has had this before and stayed on Lovenox Hgb 13.1 @ [facility] Recommended ER if persisting bleeding but she would prefer to stay on Lovenox for now. Updated Visit, July 27, 2022: Madhu returns today and has 2 of her youngest children with her. She didn't hemorrhage with her most recent delivery and has a healthy baby girl age 11 weeks. Her 3 year old son is with her too. Joints ache but perhaps related to 4 children 14- 11 weeks. Updated Visit, March 27, 2022: Madhu is 36 years old and is doing well with her current maintain on low-dose prophylactic Lovenox. Doing well overall but is having some bleeding following oral iron therapy due to constipation. May qualify for IV iron which will help her. She hemorrhaged after her last and required transfusion. 33 weeks - scheduled to be induced at 39 weeks Updated Visit, January 30, 2022: Madhu returns at 25 weeks of her current . She remains on prophylactic dose Lovenox. Appreciate my colleagues opinion regarding her anticoagulation and she found Dr. Hamlin's opinion very helpful as well. We reviewed the recommendations together, but we will follow her preference to treatment. She prefers to stay on the 40 mg dose daily and will monitor for hemorrhage as she has done in the past. She is having trouble with hyperglycemia in and also has become mildly anemic although, this is most likely due to plasma expansion. I have checked iron studies and those are pending. She is otherwise getting along very well. 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 In any case I do think thatthis is a risk factor for her stroke as well as for recurrent loss. The fact that she hashad a stroke and also had 1 late loss classifies her as having the antiphospholipid syndrome. Though she has done well on at least one while on Lovenox the standard of care would be to have her on both Lovenox and low-dose aspirin. She is somewhat hesitant to take aspirin as she hashad some intolerance before, but I encouraged her to consider 81 mg of daily aspirin. While 1 can make an argument for full dose anticoagulation during because of her previous stroke, giventhat she is also on aspirin I would recommend that we simply at this point increase her Lovenox dose to 80 mg daily. However in the period I would increase to a therapeutic range of at least 80 mg twice daily. She has not had antiphospholipid antibody testing since June 2019, and I would recommend repeatingan antibody panel at this time. I have put in a standing order for lupus anticoagulant testing. (Earl, 08/2021) Updated Visit, August 01, 2021: Doing well overall and has resolved some of her symptoms. No additional stroke like symptoms. Stillbreastfeeding and will maintain lovenox until she is finished. Has recurring UTI with pseudomonas - having mild symptoms now. Hair is dry and has patches Updated Visit, December 23, 2020: Father at the End of September 2020 so she's had a rough few months. He was 73 and had a colorectal cancer. Mother also had colon cancer and at age 69. Both lived in [facility] but she was adopted. She was not able to see ID in October and will be seeing Dr. Baugh next week. Also will have her see Dr. Hamlin for her clotting disorder and make any other recommendations to optimize her treatment. Updated Visit, October 08, 2020: Telephone only Received call from pt stating she was seen in [facility] ER for numbness in her chest, throat, and extremities, and sob which has been worsening over the last week. We arranged a telephone visit for her toreview questions with me. Madhu Rendon is a 34 year old female seen for Hypercoagulable state and recent concerns and symptoms that required her to be seen at [facility] ER. She went to the ER with Gradual worsening of breathing after progressive tingling of fingers and legs. She currently remains very fatigued even though she is sleeping well. Now recalls that before her stroke she remembers having a bull's eye rash and was seen with severe headaches in [facility] was found to have a stroke in 2016. Updated Visit, May 05, 2020: Madhu is 34 years old and returns for routine check in for chronic anticoagulation of her hypercoagulable disorder that presented with a CVA approximately 2018. Full work-up has revealed some low-level anticardiolipin antibodies in an indeterminate range, but given her's symptoms and thrombotic event her neurologist and I feel that it be appropriate to at least put her on prophylactic dosing of anticoagulation. She is currently on Lovenox because she is still breast feeding her 4-month-old son. Recently she reports that she had numbness preceding a root canal and was sent to [facility] for MRI which was negative but non-contrasted. She like her chemistries checked because she's had hyponatremia before. She also complains that even though she is still breast feeding, she is still gaining weight hasn'tbeen eating healthy as food. She also has started vaginal spotting and has started Her menses but is not heavy at this time. Fatigue is pronounced but isn't anemic today. All labs reviewed. Updated Visit, February 02, 2020: Madhu is 34 yo and delivered a healthy baby boy who is now 3 weeks old. She bled after and was downto 8.5 but didn't need transfusions. She hemorrhaged with each of her prior 2 pregnancies. Daughteris Autistic 51/2. Her son who is 12 had Tics when he was 6. Discussed briefly the risks of further with requirements of anticoagulation. Labs appear to be stable Is possibly getting Mirena but is still contemplating future . I asked her to discuss her risk with Dr. Herrmann. She will need to be on lovenox until she stops breast feeding. After this remains the question of resuming plavix or consider DOAC. Initial Visit, May 19, 2019: Madhu Rendon presents today at the request of Dr. Herrmann for oncology evaluation. She is a 33 year old female who is currently on Plavix for CVA prophylaxis and is been referred for opinion regarding changing over to Lovenox due to her underlying findings of antiphospholipid antibodies. Her history goes back to January 2016 in [facility] where she had persisting headaches and slurred speech followed by lower extremity weakness. This took a few months to resolve and she is back to her normal state of being but some point in time during her her next she was seen by Dr. Humera Hyde in [place] as well and was found to have an antiphospholipid antibody. I believe this is after a spontaneous . She had a bleeding on aspirin but has been stable on Plavix. In the absence of an active measurable thrombosis she was not given full dose attic regulation. The thinking that perhaps the CVA symptoms were mediated by a transient ischemic event precipitated by hormone therapy. Nevertheless now that she has been identified antiphospholipid antibody which she believes to be anticardiolipin antibody she will require some form of prophylaxis. REVIEW OF SYSTEMS Per HPI and otherwise negative by full review of organ systems. ECOG PERFORMANCE STATUS: 0 PHYSICAL EXAMINATION: Vitals: LMP 04/08/2019 There is no height or weight on file to calculate BSA. No exam on audio visit ___ ALLERGIES: ALLERGIES Allergen Reactions Ciprofloxacin Other: See Comments, Unknown Dizziness, weakness sweating Ciprofloxacin-Fluoc* Other: See Comments Dizziness, weakness sweating Lactose GI Upset Diarrhea Seasonal Allergies GI Upset, Other: See Comments Lactalbumin Unknown, GI Upset Crampy and gassy Milk Other: See Comments Crampy and gassy Diarrhea Other reaction(s): GI Upset Crampy and gassy Milk Containing Pro* Other: See Comments Crampy and gassy Diarrhea Other reaction(s): GI Upset Crampy and gassy MEDICATIONS: enoxaparin (LOVENOX) 40 mg/0.4 mL INJECT THE CONTENTS OF ONE SYRINGE (0.4 ML) SUBCUTANEOUSLY EVERY 24 HOURS metFORMIN ER (GLUCOPHAGE XR) 500 mg 24 hr tablet PRO FE 180 mg iron cap levothyroxine (SYNTHROID) 25 mcg tablet Take 25 mcg by mouth. (Patient not taking: Reported on 07/27/2022) multivitamin tablet Take 1 tablet by mouth once daily. LABORATORY VALUES: WBC (k/uL) Date Value 03/13/2023 7.55 RBC (m/uL) Date Value 03/13/2023 4.56 Hemoglobin (g/dL) Date Value 03/13/2023 13.3 Hematocrit (%) Date Value 03/13/2023 39.3 MCV (fL) Date Value 03/13/2023 86.2 MCH (pg) Date Value 03/13/2023 29.2 MCHC (g/dL) Date Value 03/13/2023 33.8 RDW-CV (%) Date Value 03/13/2023 13.3 Platelet Count (k/uL) Date Value 03/13/2023 335 MPV (fL) Date Value 03/13/2023 9.7 Glucose (mg/dL) Date Value 03/13/2023 87 BUN (mg/dL) Date Value 03/13/2023 11 Creatinine (mg/dL) Date Value 03/13/2023 0.81 Sodium (mmol/L) Date Value 03/13/2023 136 Potassium (mmol/L) Date Value 03/13/2023 4.3 Chloride (mmol/L) Date Value 03/13/2023 101 CO2 (mmol/L) Date Value 03/13/2023 23 Protein, Total (g/dL) Date Value 03/13/2023 7.7 Albumin (g/dL) Date Value 03/13/2023 4.9 Calcium, Total (mg/dL) Date Value 03/13/2023 10.0 Alkaline Phosphatase (U/L) Date Value 03/13/2023 88 Bilirubin, Total (mg/dL) Date Value 03/13/2023 0.2 AST (U/L) Date Value 03/13/2023 18 ALT (U/L) Date Value 03/13/2023 25 DIAGNOSIS: (D68.59) Primary hypercoagulable state (HCC) (primary encounter diagnosis) Plan: CBC + DIFF, COMP METABOLIC PANEL, IRON + TIBC, FERRITIN BLD, VITAMIN B12 BLOOD, FOLATE SERUM (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) Plan: CBC + DIFF, COMP METABOLIC PANEL, IRON + TIBC, FERRITIN BLD, VITAMIN B12 BLOOD, FOLATE SERUM (E55.9) Vitamin D deficiency Plan: CBC + DIFF, COMP METABOLIC PANEL, IRON + TIBC, FERRITIN BLD, VITAMIN B12 BLOOD, FOLATE SERUM (I69.328) CVA, old, speech/language deficit Plan: CBC + DIFF, COMP METABOLIC PANEL, IRON + TIBC, FERRITIN BLD, VITAMIN B12 BLOOD, FOLATE SERUM (D68.61) Antiphospholipid antibody syndrome (HCC) Plan: CBC + DIFF, COMP METABOLIC PANEL, IRON + TIBC, FERRITIN BLD, VITAMIN B12 BLOOD, FOLATE SERUM PAST MEDICAL HISTORY Diagnosis Date Antiphospholipid antibody syndrome (HCC) Asthma Bilateral ovarian cysts Blood in stool Clear vaginal discharge Complex cyst of right ovary Dysuria during Fluid imbalance History of miscarriage, currently Hypercoagulable state (HCC) Iron deficiency anemia of 03/27/2022 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 Kidney stones early 20's Missed menses Nausea and vomiting Rectal bleeding PAST SURGICAL HISTORY Procedure Laterality Date BREAST BIOPSY HX Negative EXTRACTION, ERUPTED TOOTH OR EXPOSED ROOT (ELEVATION AND/OR FORCEPS REMOVAL) Social History Tobacco Use Smoking status: Never Smokeless tobacco: Never Vaping Use Vaping Use: Never used Substance Use Topics Alcohol use: No Drug use: No FAMILY HISTORY Adopted: Yes Problem Relation Age of Onset Stroke Father Diabetes Father Type 2 Multiple Sclerosis Maternal Aunt Heart Maternal Grandfather other (Other) Daughter sacral dimple, frbrous tisse of tail bone other (Other) Mother Spinabifida Diabetes Sister type 2 Diabetes Paternal Grandmother type 2 Diabetes Paternal Grandfather type 2 I spent a total of 30 minutes on the date of the service which included preparing to see the patient, completing clinical documentation, counseling and educating the patient/family/caregiver, ordering medications, tests, or procedures, and independently interpreting results (not separately reported). Salvador Calix MD, CPE Hematology [facility] Oncology Services Provided at: [place], [place] CC: MD Wilton Day, [address] [place] [address] Humaira Gaviria MD [address] [place] [id number] MD Cosmo Kingston MD Michael Blank, MD documented in this encounterOhio[facility]23 NoteHNO ID: [id number] Author: Salvador Calix MD Service: ? Author Type: Physician Type: Progress Notes Filed: 03/20/2023 10:20 AM Note Text: NAME: Madhu Rendon CLINIC NO.: [id number] DATE OF SERVICE: March 19, 2023 (Levon) Some elements in this clinic note that are critical to medical decision making have been carefully reviewed and included from a prior clinic note dated: September 28, 2022 (Levon) Additional Clinicians involved in Madhu Rendon's care: Jorge Mcwilliams, Humaira Gaviria, Dr. Boothe VIRTUAL VISIT PROGRESS NOTE This is a virtual visit using Audio Visit Only. It required patient-provider interaction for the medical decision making as documented below. I have communicated my name and active licensure. The patient's identity and physical location were verified at the time of this visit. Either the patient or their legal labor service representative has been informed of the risks and benefits of -- and alternatives to -- treatment through a remote evaluation and consents to proceed with the evaluation remotely. CC: hypercoag state. ASSESSMENT: 37 year old woman 25 weeks presents with a prior history of CVA in 2016 and an antiphospholipid antibody that was identified much later in 2018. These were found in [place], [place]. I don't have access to these results. Patient believes that she has anticardiolipin antibodies but wasn't sure. She has been on Plavix for approximately year and a half and had bled heavily on aspirin preceding this. She currently has no evidence of active thrombosis. We had discussed the potential etiology of antiphospholipid antibodies in the context of her symptoms which preceded her diagnosis by approximately 2 years presenting as a CVA. At some point in time she had a vW disease workup but we don't have that specific data from prior workup. After discussion with her neurologist, Dr. Jorge Monge, we put her on prophylactic dose Lovenox throughout her prior but is now again and at 25 weeks. Had difficulty with associated diabetes. Recalls having had a target-like rash shortly before presenting to [place] in 2016 with headaches and was diagnosed with a CVA. - She saw Dr. Baugh but no relevant conclusion was made. She remains on Lovenox - still breast feeding. No clinical need to recheck her APL Ab or Cardiolipin Ab's as results will not change our treatment plan. PLAN: Continue Lovenox - patient prefers 40 mg (rather than rec 80mg) Take B12 supplement in the form of a sublingual tablet. Take Vitamin D3 5000 international unit(s) daily Check labs in 8 weeks Phone / Virtual call after HPI: Updated Visit, March 19, 2023: Virtual Visit: Doing ok but is getting sick. Was not able to connect video. Vitamin D is low. Having trouble with blood sugars Baby and all kids doing well. Still breast feeding. Updated Visit, December 22, 2022: Virtual visit Had a few more bloody bowel movements after we spoke last time. But resolved more than a month ago. Labs are good - no need for iron . B12 is on the lower end of normal. Otherwise and I think unrelated - weak, urinating a lot and mouth is dry all the time for the past few days. Updated Visit, September 28, 2022: Virtual Visit Had blood with BM x2 - has had this before and stayed on Lovenox Hgb 13.1 @ [facility] Recommended ER if persisting bleeding but she would prefer to stay on Lovenox for now. Updated Visit, July 27, 2022: Madhu returns today and has 2 of her youngest children with her. She didn't hemorrhage with her most recent delivery and has a healthy baby girl age 11 weeks. Her 3 year old son is with her too. Joints ache but perhaps related to 4 children 14- 11 weeks. Updated Visit, March 27, 2022: Madhu is 36 years old and is doing well with her current maintain on low-dose prophylactic Lovenox. Doing well overall but is having some bleeding following oral iron therapy due to constipation. May qualify for IV iron which will help her. She hemorrhaged after her last and required transfusion. 33 weeks - scheduled to be induced at 39 weeks Updated Visit, January 30, 2022: Madhu returns at 25 weeks of her current . She remains on prophylactic dose Lovenox. Appreciate my colleagues opinion regarding her anticoagulation and she found Dr. Hamlin's opinion very helpful as well. We reviewed the recommendations together, but we will follow her preference to treatment. She prefers to stay on the 40 mg dose daily and will monitor for hemorrhage as she has done in the past. She is having trouble with hyperglycemia in and also has become mildly anemic although, this is most likely due to plasma expansion. I have checked iron studies and those are pending. She is otherwise getting along (more content not included)...[facility]11-20-2023 Instructions* Patient Instructions* Salvador Calix MD - 03/19/2023 4:44 PM EST Continue Lovenox - patient prefers 40 mg (rather than rec 80mg) Take B12 supplement in the form of a sublingual tablet. Take Vitamin D3 5000 international unit(s) daily Check labs in 8 weeks Phone / Virtual call after documented in this encounterOhio[facility]10-19-2023 Hospital Discharge instructions Patient Education 02/15/2023 10:13:08 Ear Drops, Adult, [id number] Ear Drops, Adult Your doctor has found that you have a condition that requires you to use ear drops. Ear drops are amedicine that is placed in the ear. You may need to use ear drops in one ear or both ears as told by your doctor. This sheet gives you information about how to use this medicine. Your doctor may alsogive you more instructions. Supplies needed: Cotton balls. Ear drops. How to put ear drops into your ear 1.Wash your hands for 20 seconds with soap and water. If you cannot use soap and water, use hand armature rewinder. 2.Make sure your ears are clean and dry. 3.If there is any earwax or fluid at the outer part of the ear canal, wipe it out gently with a cotton-tipped swab. 4.Warm the medicine by holding it in your hand for a few minutes. 5.Shake the medicine gently to mix the ear drops. 6.Use the dropper to draw up the ear drops. You will need to squeeze the round part of the dropper to do this. 7.Put the drops in your ear as told. Hold the dropper above your ear. Do not let the dropper touch your ear. The medicine may go in more easily if you pull the flap of your ear up and back while you put the drops in. 8.To make sure your ear soaks up the medicine, do one of these things: Lie down for 10 minutes. The ear with the medicine in it should face up. This will cause the drops to stay in the ear canal and fill the canal. Put a cotton ball in your ear. Do not push it deeper into your ear. Take out the cotton ball when the drops have been soaked up or after 15 30 minutes have passed. 9.If you need to put drops in your other ear, repeat the same steps. Your doctor will tell you if you should put drops in both ears. 10.Wash your hands for 20 seconds with soap and water after using ear drops. If you cannot use soapand water, use hand armature rewinder. Follow these instructions at home: Use the ear drops for as long as your doctor tells you to. Do not stop even if you begin to feel better. Always wash your hands for 20 seconds before and after handling the ear drops. Keep the ear drops at room temperature. Do not wash out your ears unless told to by your doctor. Keep all follow-up visits as told by your doctor. This is important. Contact a doctor if: Your condition gets worse. Your pain or itching gets worse. Unusual fluid is coming from your ear, especially if the fluid smells bad. You have new trouble hearing. You get a rash around your ear. You have used the ear drops for the amount of time told by your doctor, but you do not feel better. Get help right away if: You feel like the room is spinning and you feel like you might vomit. This condition is called vertigo. The outside of your ear becomes red or swollen. You have a very bad headache with or without a stiff neck. Summary Ear drops are a medicine that is put in the ear. Put the drops in your ear as told by your doctor. Use the ear drops for as long as your doctor tells you to. Do not stop even if your symptoms get better. Keep all follow-up visits as told by your doctor. This is important. This information is not intended to replace advice given to you by your health care provider. Make sure you discuss any questions you have with your health care provider. Document Revised: 02/11/2020 Document Reviewed: 02/11/2020 [employer] Patient Education 2022 [employer] 02/15/2023 10:13:05 Otitis Externa, [id number] Otitis Externa Otitis externa is an infection of the outer ear canal. The outer ear canal is the area between the outside of the ear and the eardrum. Otitis externa is sometimes called swimmer's ear. What are the causes? Common causes of this condition include: Swimming in dirty water. Moisture in the ear. An injury to the inside of the ear. An object stuck in the ear. A cut or scrape on the outside of the ear or in the ear canal. What increases the risk? You are more likely to get this condition if you go swimming often. What are the signs or symptoms? Itching in the ear. This is often the first symptom. Swelling of the ear. Redness in the ear. Ear pain. The pain may get worse when you pull on your ear. Pus coming from the ear. How is this treated? This condition may be treated with: Antibiotic ear drops. These are often given for 10 14 days. Medicines to reduce itching and swelling. Follow these instructions at home: If you were prescribed antibiotic ear drops, use them as told by your doctor. Do not stop using them even if you start to feel better. Take pqkw-afe-myqvawm and prescription medicines only as told by your doctor. Avoid getting water in your ears as told by your doctor. You may be told to avoid swimming or watersports for a few days. Keep all follow-up visits. How is this prevented? Keep your ears dry. Use the corner of a towel to dry your ears after you swim or bathe. Try not to scratch or put things in your ear. Doing these things makes it easier for germs to grow in your ear. Avoid swimming in lakes, dirty water, or swimming pools that may not have the right amount of a chemical called chlorine. Contact a doctor if: You have a fever. Your ear is still red, swollen, or painful after 3 days. You still have pus coming from your ear after 3 days. Your redness, swelling, or pain gets worse. You have a very bad headache. Get help right away if: You have redness, swelling, and pain or tenderness behind your ear. Summary Otitis externa is an infection of the outer ear canal. Symptoms include pain, redness, and swelling of the ear. If you were prescribed antibiotic ear drops, use them as told by your doctor. Do not stop using them even if you start to feel better. Try not to scratch or put things in your ear. This information is not intended to replace advice given to you by your health care provider. Make sure you discuss any questions you have with your health care provider. Document Revised: 06/29/2021 Document Reviewed: 06/29/2021 [employer] Patient Education 2022 [employer]. Follow Up Care 02/14/2023 12:28:12 With:Evans CASAS DO, FAAFP, FAM, PED Address: [address], [place] [address]- When:Within 2 Month(s) [facility] 08-25-2023 Hospital Discharge instructions Patient Education 12/22/2022 15:19:27 Urodynamic Testing Urodynamic Testing Urodynamic tests are done to determine how well your lower urinary tract is working. The lower urinary tract includes your bladder and the part of your body that drains urine from the bladder (urethra). When your kidneys filter your blood, urine is stored in your bladder until you feel the urge to urinate. Urination requires coordination between the nerves and muscles of your bladder and urethra. When your lower urinary tract is working well, you should be able to: Start urinating when your bladder is full. Empty your bladder completely. Control the flow of your urine. Why do I need urodynamic testing? You may need urodynamic testing to help find the cause of any of these problems: Leaking urine (incontinence). Problems starting or stopping your urine flow. Frequent or painful urination. Frequent urinary tract infections. Being unable to empty your bladder completely. Having strong urges to pass urine (urgency). Having a weak flow of urine. What are the risks? Generally, these tests are safe. However, some of the tests have risks, including: Discomfort. Frequent urge to urinate. Bleeding. Infection. Allergic reactions to medicines or dyes (contrast material). What happens before the test? Ask your health care provider about changing or stopping your regular medicines. This is especiallyimportant if you are taking diabetes medicines or blood thinners. You may be asked to avoid urinating before coming to the test so that you arrive with a full bladder. Tell a health care provider about: ?Any allergies you have. ?All medicines you are taking, including vitamins, herbs, eye drops, creams, and abkl-wxt-hwunmfy medicines. ?Whether you are or may be . What happens during the test? You may have various urodynamic tests. The tests may be done separately or may all be done during one visit. You may be given an antibiotic medicine before or after testing to help prevent infection. The types of tests that may be done include: Uroflowmetry This test measures how much urine you pass and how long it takes to pass. You will urinate into a certain type of toilet or device (flowmeter). The device will measure the volume and the time of your urine flow. These measurements will be sent to a computer that creates a graph of your urine flow. Postvoid residual measurement This test measures how much urine is left in your bladder after you urinate. The test may be done with ultrasound. In this method, sound waves and a computer will be used to create an image of your bladder. The test can also be done by inserting a thin, flexible tube (catheter) into your bladder after youurinate. The remaining urine will be removed through the catheter so it can be measured. Remaining urine will be measured in milliliters (mL). If you have more than 100 mL left in your bladder after you urinate, your bladder is not emptying as it should. Cystometric testing This test uses a type of bladder catheter that can measure pressure. You may be given a medicine to numb the area (local anesthetic). The area around the opening of your urethra will be cleaned. A urinary catheter will be passed through your urethra into your bladder and used to empty your bladder completely. A measuring catheter will be placed, and your bladder will be filled with warm, germ-free (sterile)water. Pressure measurements will be taken: ?As your bladder fills. ?When you feel the need to urinate. ?As your bladder is emptied. You may be asked to cough or bear down to check for leakage. In some cases, your bladder may be filled with a material that shows up on X- rays (contrast material) so that X-ray pictures can be taken during the test. Electromyogram This test measures the electrical activity of the nerves and muscles of your bladder and the opening of your urethra. Sticky patches (electrodes) will be placed near your rectum and urethra to measure electrical activity. The measurements will show how well your nerves are communicating with your muscles. What can I expect after the test? You should be able to go home right away and do your usual activities. You may be told to drink a glass of water every 30 minutes for the first 2 hours after testing. Taking a warm bath or using warm, wet cloths (warm compresses) may relieve any discomfort near yoururethra. What do the results mean? Talk with your health care provider about what your results mean. Some common causes for abnormal results from urodynamic tests include: Enlarged prostate in men. Overactive bladder. Urinary tract infection. Nervous system diseases. Spinal cord damage. Questions to ask your health care provider Ask your health care provider, or the department that is doing the test: When will my results be ready? How will I get my results? What are my treatment options? What other tests do I need? What are my next steps? Contact a health care provider if: You have pain. You have blood in your urine. You have chills. You have a fever. Summary Urodynamic tests are done to determine how well your lower urinary tract is working. The lower urinary tract includes your bladder and urethra. You may need urodynamic testing to help find the cause of various problems with urination, such as leaking urine (incontinence) or problems starting or stopping your urine flow. You may have various urodynamic tests. The tests may be done separately or may all be done during one testing visit. Talk with your health care provider about what your results mean. Contact your health care provider if you have pain, chills, a fever, or blood in your urine. This information is not intended to replace advice given to you by your health care provider. Make sure you discuss any questions you have with your health care provider. Document Revised: 12/28/2021 Document Reviewed: 11/19/2020 [employer] Patient Education 2022 [employer]. 12/22/2022 15:19:23 Fatigue Fatigue If you have fatigue, you feel tired all the time and have a lack of energy or a lack of motivation.Fatigue may make it difficult to start or complete tasks because of exhaustion. Occasional or mild fatigue is often a normal response to activity or life. However, long-term (chronic) or extreme fatigue may be a symptom of a medical condition such as: Depression. Not having enough red blood cells or hemoglobin in the blood (anemia). A problem with a small gland located in the lower front part of the neck (thyroid disorder). Rheumatologic conditions. These are problems related to the body's defense system (immune system). Infections, especially certain viral infections. Fatigue can also lead to negative health outcomes over time. Follow these instructions at home: Medicines Take ionl-ymi-ztlkpqs and prescription medicines only as told by your health care provider. Take a multivitamin if told by your health care provider. Do not use herbal or dietary supplements unless they are approved by your health care provider. Eating and drinking Avoid heavy meals in the evening. Eat a well-balanced diet, which includes lean proteins, whole grains, plenty of fruits and vegetables, and low-fat dairy products. Avoid eating or drinking too many products with caffeine in them. Avoid alcohol. Drink enough fluid to keep your urine pale yellow. Activity Exercise regularly, as told by your health care provider. Use or practice techniques to help you relax, such as yoga, gerald chi, meditation, or massage therapy. Lifestyle Change situations that cause you stress. Try to keep your work and personal schedules in balance. Do not use recreational or illegal drugs. General instructions Monitor your fatigue for any changes. Go to bed and get up at the same time every day. Avoid fatigue by pacing yourself during the day and getting enough sleep at night. Maintain a healthy weight. Contact a health care provider if: Your fatigue does not get better. You have a fever. You suddenly lose or gain weight. You have headaches. You have trouble falling asleep or sleeping through the night. You feel angry, guilty, anxious, or sad. You have swelling in your legs or another part of your body. Get help right away if: You feel confused, feel like you might faint, or faint. Your vision is blurry or you have a severe headache. You have severe pain in your abdomen, your back, or the area between your waist and hips (pelvis). You have chest pain, shortness of breath, or an irregular or fast heartbeat. You are unable to urinate, or you urinate less than normal. You have abnormal bleeding from the rectum, nose, lungs, nipples, or, if you are female, the vagina. You vomit blood. You have thoughts about hurting yourself or others. These symptoms may be an emergency. Get help right away. Call 911. Do not wait to see if the symptoms will go away. Do not drive yourself to the hospital. Get help right away if you feel like you may hurt yourself or others, or have thoughts about takingyour own life. Go to your nearest emergency room or: Call 911. Call the National Suicide Prevention Lifeline at or 868. This is open 24 hours a day. Text the Crisis Text Line at 508567. Summary If you have fatigue, you feel tired all the time and have a lack of energy or a lack of motivation. Fatigue may make it difficult to start or complete tasks because of exhaustion. Long-term (chronic) or extreme fatigue may be a symptom of a medical condition. Exercise regularly, as told by your health care provider. Change situations that cause you stress. Try to keep your work and personal schedules in balance. This information is not intended to replace advice given to you by your health care provider. Make sure you discuss any questions you have with your health care provider. Document Revised: 02/06/2022 Document Reviewed: 02/06/2022 [employer] Patient Education 2022 [employer]. Follow Up Care 12/22/2022 10:22:02 With:Lourdes Urrutia Address: [address] [place] [address] When: only if needed [facility] 08-25-2023 Instructions* Patient Instructions* Salvador Calix MD - 12/22/2022 10:13 AM EDT Continue Lovenox - patient prefers 40 mg (rather than rec 80mg) Take B12 supplement in the form of a sublingual tablet. Take Vitamin D3 5000 international unit(s) daily Check labs in 8 weeks Phone / Virtual [facility] of Present illness Narrative* Salvador Calix MD - 12/22/2022 9:55 AM EDT Images from the original note were not included. Salvador Calix MD NAME: Madhu Rendon CLINIC NO.: [id number] DATE OF SERVICE: December 22, 2022 (Levon) Some elements in this clinic note that are critical to medical decision making have been carefully reviewed and included from a prior clinic note dated: September 28, 2022 (Levon) Additional Clinicians involved in Madhu Rendon's care: Drs. Herrmann, Jorge Monge, Humaira Gaviria, VIRTUAL VISIT PROGRESS NOTE This is a virtual visit using Telephone only for 20 minutes . It required patient-provider interaction for the medical decision making as documented below. I have communicated my name and active licensure. The patient's identity and physical location wereverified at the time of this visit. Either the patient or their legal labor service representative has been informed of the risks and benefits of -- and alternatives to -- treatment through a remote evaluation andconsents to proceed with the evaluation remotely. CC: hypercoag state. ASSESSMENT: 37 year old woman with a prior history of CVA in 2016 and an antiphospholipid antibody that was identified much later in 2018. These were found in [place], [place]. I don't have access to these results. Patient believes that she has anticardiolipin antibodies but wasn't sure. She has been on Plavix for approximately year and a half and had bled heavily on aspirin preceding this. She currently has no evidence of active thrombosis. We had discussed the potential etiology of antiphospholipid antibodies in the context of her symptoms which preceded her diagnosis by approximately2 years presenting as a CVA. At some point in time she had a vW disease workup but we don't have that specific data from prior workup. After discussion with her neurologist, Dr. Jorge Monge, we put her on prophylactic dose Lovenox throughout her prior and is breast feeding still. Is having difficulty with high blood sugars in the mornings and had induced diabetes. Recalls having had a target-like rash shortly before presenting to [place] in 2016 with headaches and was diagnosed with a CVA. - She saw Dr. Baugh but no relevant conclusion was made. She remains on Lovenox - her youngest son is 7 mo now PLAN: Continue Lovenox - patient prefers 40 mg (rather than rec 80mg) Take B12 supplement in the form of a sublingual tablet. Take Vitamin D3 5000 international unit(s) daily Check labs in 8 weeks Phone / Virtual call after HPI: Updated Visit, December 22, 2022: Had a few more bloody bowel movements after we spoke last time. But resolved more than a month ago. Labs are good - no need for iron . B12 is on the lower end of normal. Otherwise and I think unrelated - weak, urinating a lot and mouth is dry all the time for the past few days. Updated Visit, September 28, 2022: Had blood with BM x2 - has had this before and stayed on Lovenox Hgb 13.1 @ [facility] Recommended ER if persisting bleeding but she would prefer to stay on Lovenox for now. Updated Visit, July 27, 2022: Madhu returns today and has 2 of her youngest children with her. She didn't hemorrhage with her most recent delivery and has a healthy baby girl age 11 weeks. Her 3 year old son is with her too. Joints ache but perhaps related to 4 children 14- 11 weeks. Updated Visit, March 27, 2022: Madhu is 36 years old and is doing well with her current maintain on low-dose prophylactic Lovenox. Doing well overall but is having some bleeding following oral iron therapy due to constipation. May qualify for IV iron which will help her. She hemorrhaged after her last and required transfusion. 33 weeks - scheduled to be induced at 39 weeks Updated Visit, January 30, 2022: Madhu returns at 25 weeks of her current . She remains on prophylactic dose Lovenox. Appreciate my colleagues opinion regarding her anticoagulation and she found Dr. Hamlin's opinion very helpful as well. We reviewed the recommendations together, but we will follow her preference to treatment. She prefers to stay on the 40 mg dose daily and will monitor for hemorrhage as she has done in the past. She is having trouble with hyperglycemia in and also has become mildly anemic although, this is most likely due to plasma expansion. I have checked iron studies and those are pending. She is otherwise getting along very well. 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 In any case I do think thatthis is a risk factor for her stroke as well as for recurrent loss. The fact that she hashad a stroke and also had 1 late loss classifies her as having the antiphospholipid syndrome. Though she has done well on at least one while on Lovenox the standard of care would be to have her on both Lovenox and low-dose aspirin. She is somewhat hesitant to take aspirin as she hashad some intolerance before, but I encouraged her to consider 81 mg of daily aspirin. While 1 can make an argument for full dose anticoagulation during because of her previous stroke, giventhat she is also on aspirin I would recommend that we simply at this point increase her Lovenox dose to 80 mg daily. However in the period I would increase to a therapeutic range of at least 80 mg twice daily. She has not had antiphospholipid antibody testing since June 2019, and I would recommend repeatingan antibody panel at this time. I have put in a standing order for lupus anticoagulant testing. (Earl, 08/2021) Updated Visit, August 01, 2021: Doing well overall and has resolved some of her symptoms. No additional stroke like symptoms. Stillbreastfeeding and will maintain lovenox until she is finished. Has recurring UTI with pseudomonas - having mild symptoms now. Hair is dry and has patches Updated Visit, December 23, 2020: Father at the End of September 2020 so she's had a rough few months. He was 73 and had a colorectal cancer. Mother also had colon cancer and at age 69. Both lived in [facility] but she was adopted. She was not able to see ID in October and will be seeing Dr. Baugh next week. Also will have her see Dr. Hamlin for her clotting disorder and make any other recommendations to optimize her treatment. Updated Visit, October 08, 2020: Telephone only Received call from pt stating she was seen in [facility] ER for numbness in her chest, throat, and extremities, and sob which has been worsening over the last week. We arranged a telephone visit for her toreview questions with me. Madhu Rendon is a 34 year old female seen for Hypercoagulable state and recent concerns and symptoms that required her to be seen at [facility] ER. She went to the ER with Gradual worsening of breathing after progressive tingling of fingers and legs. She currently remains very fatigued even though she is sleeping well. Now recalls that before her stroke she remembers having a bull's eye rash and was seen with severe headaches in [facility] was found to have a stroke in 2016. Updated Visit, May 05, 2020: Madhu is 34 years old and returns for routine check in for chronic anticoagulation of her hypercoagulable disorder that presented with a CVA approximately 2018. Full work-up has revealed some low-level anticardiolipin antibodies in an indeterminate range, but given her's symptoms and thrombotic event her neurologist and I feel that it be appropriate to at least put her on prophylactic dosing of anticoagulation. She is currently on Lovenox because she is still breast feeding her 4-month-old son. Recently she reports that she had numbness preceding a root canal and was sent to [facility] for MRI which was negative but non-contrasted. She like her chemistries checked because she's had hyponatremia before. She also complains that even though she is still breast feeding, she is still gaining weight hasn'tbeen eating healthy as food. She also has started vaginal spotting and has started Her menses but is not heavy at this time. Fatigue is pronounced but isn't anemic today. All labs reviewed. Updated Visit, February 02, 2020: Madhu is 34 yo and delivered a healthy baby boy who is now 3 weeks old. She bled after and was downto 8.5 but didn't need transfusions. She hemorrhaged with each of her prior 2 pregnancies. Daughteris Autistic 51/2. Her son who is 12 had Tics when he was 6. Discussed briefly the risks of further with requirements of anticoagulation. Labs appear to be stable Is possibly getting Mirena but is still contemplating future . I asked her to discuss her risk with Dr. Herrmann. She will need to be on lovenox until she stops breast feeding. After this remains the question of resuming plavix or consider DOAC. Initial Visit, May 19, 2019: Madhu Rendon presents today at the request of Dr. Herrmann for oncology evaluation. She is a 33 year old female who is currently on Plavix for CVA prophylaxis and is been referred for opinion regarding changing over to Lovenox due to her underlying findings of antiphospholipid antibodies. Her history goes back to January 2016 in [facility] where she had persisting headaches and slurred speech followed by lower extremity weakness. This took a few months to resolve and she is back to her normal state of being but some point in time during her her next she was seen by Dr. Humera Hyde in [place] as well and was found to have an antiphospholipid antibody. I believe this is after a spontaneous . She had a bleeding on aspirin but has been stable on Plavix. In the absence of an active measurable thrombosis she was not given full dose attic regulation. The thinking that perhaps the CVA symptoms were mediated by a transient ischemic event precipitated by hormone therapy. Nevertheless now that she has been identified antiphospholipid antibody which she believes to be anticardiolipin antibody she will require some form of prophylaxis. 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 Kidney stones early 20's Missed menses Nausea and vomiting Rectal bleeding PAST SURGICAL HISTORY Procedure Laterality Date BREAST BIOPSY HX Negative EXTRACTION, ERUPTED TOOTH OR EXPOSED ROOT (ELEVATION AND/OR FORCEPS REMOVAL) FAMILY HISTORY Adopted: Yes Problem Relation Age of Onset Stroke Father Diabetes Father Type 2 Multiple Sclerosis Maternal Aunt Heart Maternal Grandfather other (Other) Daughter sacral dimple, frbrous tisse of tail bone other (Other) Mother Spinabifida Diabetes Sister type 2 Diabetes Paternal Grandmother type 2 Diabetes Paternal Grandfather type 2 Social History Tobacco Use Smoking status: Never Smokeless tobacco: Never Vaping Use Vaping Use: Never used Substance Use Topics Alcohol use: No Drug use: No Current Outpatient Medications Medication Sig enoxaparin (LOVENOX) 40 mg/0.4 mL INJECT THE CONTENTS OF ONE SYRINGE (0.4 ML) SUBCUTANEOUSLY EVERY 24 HOURS metFORMIN ER (GLUCOPHAGE XR) 500 mg 24 hr tablet PRO FE 180 mg iron cap levothyroxine (SYNTHROID) 25 mcg tablet Take 25 mcg by mouth. (Patient not taking: Reported on 07/27/2022) multivitamin tablet Take 1 tablet by mouth once daily. No current facility-administered medications for this visit. ALLERGIES Allergen Reactions Ciprofloxacin Other: See Comments, Unknown Dizziness, weakness sweating Ciprofloxacin-Fluoc* Other: See Comments Dizziness, weakness sweating Lactose GI Upset Diarrhea Seasonal Allergies GI Upset, Other: See Comments Lactalbumin Unknown, GI Upset Crampy and gassy Milk Other: See Comments Crampy and gassy Diarrhea Other reaction(s): GI Upset Crampy and gassy Milk Containing Pro* Other: See Comments Crampy and gassy Diarrhea Other reaction(s): GI Upset Crampy and gassy REVIEW OF SYSTEMS: As noted in HPI PHYSICAL EXAMINATION: VIDEO EXAM: (if completed, performed via video enabled technology) No exam performed Salvador Calix MD, CPE [facility] Provided at: [place], [place] CC: MD Wilton Day, DO [address] [facility] [place] [address] Humaira Gaviria MD [address] [place] [id number] MD Cosmo Kingston MD Michael Blank, MD documented in this encounterOhio[facility]08[facility]23 Miscellaneous Notes* Telephone Encounter - Harjit Haskins - 12/13/2022 10:25 AM EDT Patient called back and scheduled her lab appointment for Sunday. Phone follow up for these labs , 12/21. FELY: Madhu is asking if you could check her Vitamin D level and Thyroid. Per patient, she has issues with her blood sugars and her sister had the same issue and found out her Vitamin D level was abnormal. Harjit Haskins * Telephone Encounter - Harjit Haskins - 12/13/2022 10:14 AM EDT Call placed to patient again, no answer. Left detailed message on voicemail to call back to schedule lab appointment. Harjit Haskins * Telephone Encounter - Harjit Haskins - 12/11/2022 4:[address] Luna, patient did not have her labs drawn and will need this rescheduled. Call placed to patient, no answer and unable to leave message; line just rings busy . Will attempt to contact patientat a later time. Harjit Haskins documented in this encounterOhiohealth [facility]06-23-2023 Hospital Discharge instructions Patient Education 10/20/2022 10:37:38 Exercising to Lose Weight Exercising to Lose Weight Getting regular exercise is important for everyone. It is especially important if you are overweight. Being overweight increases your risk of heart disease, stroke, diabetes, high blood pressure, andseveral types of cancer. Exercising, and reducing the calories you consume, can help you lose weight and improve fitness and health. Exercise can be moderate or vigorous intensity. To lose weight, most people need to do a certain amount of moderate or vigorous-intensity exercise each week. How can exercise affect me? You lose weight when you exercise enough to burn more calories than you eat. Exercise also reduces body fat and builds muscle. The more muscle you have, the more calories you burn. Exercise also: Improves mood. Reduces stress and tension. Improves your overall fitness, flexibility, and endurance. Increases bone strength. Moderate-intensity exercise Moderate-intensity exercise is any activity that gets you moving enough to burn at least three times more energy (calories) than if you were sitting. Examples of moderate exercise include: Walking a mile in 15 minutes. Doing light yard work. Biking at an easy pace. Most people should get at least 150 minutes of moderate-intensity exercise a week to maintain theirbody weight. Vigorous-intensity exercise Vigorous-intensity exercise is any activity that gets you moving enough to burn at least six times more calories than if you were sitting. When you exercise at this intensity, you should be working hard enough that you are not able to carry on a conversation. Examples of vigorous exercise include: Running. Playing a team sport, such as football, basketball, and soccer. Jumping rope. Most people should get at least 75 minutes a week of vigorous exercise to maintain their body weight. What actions can I take to lose weight? The amount of exercise you need to lose weight depends on: Your age. The type of exercise. Any health conditions you have. Your overall physical ability. Talk to your health care provider about how much exercise you need and what types of activities aresafe for you. Nutrition Make changes to your diet as told by your health care provider or diet and nutrition worker (dietitian). This may include: ?Eating fewer calories. ?Eating more protein. ?Eating less unhealthy fats. ?Eating a diet that includes fresh fruits and vegetables, whole grains, low-fat dairy products, andlean protein. ?Avoiding foods with added fat, salt, and sugar. Drink plenty of water while you exercise to prevent dehydration or heat stroke. Activity Choose an activity that you enjoy and set realistic goals. Your health care provider can help you make an exercise plan that works for you. Exercise at a moderate or vigorous intensity most days of the week. ?The intensity of exercise may vary from person to person. You can tell how intense a workout is for you by paying attention to your breathing and heartbeat. Most people will notice their breathing and heartbeat get faster with more intense exercise. Do resistance training twice each week, such as: ?Push-ups. ?Sit-ups. ?Lifting weights. ?Using resistance bands. Getting short amounts of exercise can be just as helpful as long, structured periods of exercise. If you have trouble finding time to exercise, try doing these things as part of your daily routine: ?Get up, stretch, and walk around every 30 minutes throughout the day. ?Go for a walk during your lunch break. ?Park your car farther away from your destination. ?If you take public transportation, get off one stop early and walk the rest of the way. ?Make phone calls while standing up and walking around. ?Take the stairs instead of elevators or escalators. Wear comfortable clothes and shoes with good support. Do not exercise so much that you hurt yourself, feel dizzy, or get very short of breath. Where to find more information U.S. Department of Health and Human Services: www.hhs.gov Centers for Disease Control and Prevention: www.cdc.gov Contact a health care provider: Before starting a new exercise program. If you have questions or concerns about your weight. If you have a medical problem that keeps you from exercising. Get help right away if: You have any of the following while exercising: ?Injury. ?Dizziness. ?Difficulty breathing or shortness of breath that does not go away when you stop exercising. ?Chest pain. ?Rapid heartbeat. These symptoms may represent a serious problem that is an emergency. Do not wait to see if the symptoms will go away. Get medical help right away. Call your local emergency services (911 in the [place] Do not drive yourself to the hospital. Summary Getting regular exercise is especially important if you are overweight. Being overweight increases your risk of heart disease, stroke, diabetes, high blood pressure, and several types of cancer. Losing weight happens when you burn more calories than you eat. Reducing the amount of calories you eat, and getting regular moderate or vigorous exercise each week, helps you lose weight. This information is not intended to replace advice given to you by your health care provider. Make sure you discuss any questions you have with your health care provider. Document Revised: 06/12/2021 Document Reviewed: 06/12/2021 [employer] Patient Education 2022 [employer]. 10/20/2022 10:37:18 Preventing Type 2 Diabetes Mellitus Preventing Type 2 Diabetes Mellitus Type 2 diabetes, also called type 2 diabetes mellitus, is a long-term (chronic) disease that affects sugar (glucose) levels in your blood. Normally, a hormone called insulin allows glucose to enter cells in your body. The cells use glucose for energy. With type 2 diabetes, you will have one or bothof these problems: Your pancreas does not make enough insulin. Cells in your body do not respond properly to insulin that your body makes (insulin resistance). Insulin resistance or lack of insulin causes extra glucose to build up in the blood instead of going into cells. As a result, high blood glucose (hyperglycemia) develops. That can cause many complications. Being overweight or obese and having an inactive (sedentary) lifestyle can increase your riskfor diabetes. Type 2 diabetes can be delayed or prevented by making certain nutrition and lifestylechanges. How can this condition affect me? If you do not take steps to prevent diabetes, your blood glucose levels may keep increasing over time. Too much glucose in your blood for a long time can damage your blood vessels, heart, kidneys, nerves, and eyes. Type 2 diabetes can lead to chronic health problems and complications, such as: Heart disease. Stroke. Blindness. Kidney disease. Depression. Poor circulation in your feet and legs. In severe cases, a foot or leg may need to be surgically removed (amputated). What can increase my risk? You may be more likely to develop type 2 diabetes if you: Have type 2 diabetes in your family. Are overweight or obese. Have a sedentary lifestyle. Have insulin resistance or a history of prediabetes. Have a history of -related (gestational) diabetes or polycystic ovary syndrome (PCOS). What actions can I take to prevent this? It can be difficult to recognize signs of type 2 diabetes. Taking action to prevent the disease before you develop symptoms is the best way to avoid possible damage to your body. Making certain nutrition and lifestyle changes may prevent or delay the disease and related health problems. Nutrition Eat healthy meals and snacks regularly. Do not skip meals. Fruit or a handful of nuts is a healthy snack between meals. Drink water throughout the day. Avoid drinks that contain added sugar, such as soda or sweetened tea. Drink enough fluid to keep your urine pale yellow. Follow instructions from your health care provider about eating or drinking restrictions. Limit the amount of food you eat by: ?Managing how much you eat at a time (portion size). ?Checking food labels for the serving sizes of food. ?Using a kitchen scale to weigh amounts of food. Saut or steam food instead of frying it. Cook with water or broth instead of oils or butter. Limit saturated fat and salt (sodium) in your diet. Have no more than 1 tsp (2,400 mg) of sodium a day. If you have heart disease or high blood pressure, use less than ? tsp (1,500 mg) of sodium a day. Lifestyle Lose weight if needed and as told. Your health care provider can determine how much weight loss is best for you and can help you lose weight safely. If you are overweight or obese, you may be told to lose at least 5?7% of your body weight. Manage blood pressure, cholesterol, and stress. Your health care provider will help determine the best treatment for you. Do not use any products that contain nicotine or tobacco. These products include cigarettes, chewing tobacco, and vaping devices, such as e-cigarettes. If you need help quitting, ask your health careprovider. Activity Do physical activity that makes your heart beat faster and makes you sweat (moderate intensity). [place] for at least 30 minutes on at least 5 days of the week, or as much as told by your health careprovider. Ask your health care provider what activities are safe for you. A mix of activities may be best, such as walking, swimming, cycling, and strength training. Try to add physical activity into your day. For example: ?Park your car farther away than usual so that you walk more. ?Take a walk during your lunch break. ?Use stairs instead of elevators or escalators. ?Walk or bike to work instead of driving. Alcohol use If you drink alcohol: Limit how much you have to: ?0?1 drink a day for women who are not . ?0?2 drinks a day for men. Know how much alcohol is in your drink. In the [place] one drink equals one 12 oz bottle of beer (355mL), one 5 oz glass of wine (148 mL), or one 1 oz glass of hard liquor (44 mL). General information Talk with your health care provider about your risk factors and how you can reduce your risk for diabetes. Have your blood glucose tested regularly, as told by your health care provider. Get screening tests as told by your health care provider. You may have these regularly, especially if you have certain risk factors for type 2 diabetes. Make an appointment with a registered dietitian. This diet and nutrition worker can help you make a healthy eating plan and help you understand portion sizes and food labels. Where to find support Ask your health care provider to recommend a registered dietitian, a certified diabetes care and education managers, or a weight loss program. Look for local or online weight loss groups. Join a gym, fitness club, or outdoor activity group, such as a walking club. Where to find more information For help and guidance and to learn more about diabetes and diabetes prevention, visit: [place] Diabetes Association (ADA): www.diabetes.org National [place] of Diabetes and Digestive and Kidney Diseases: www.niddk.nih.gov To learn more about healthy eating, visit: U.S. Department of Agriculture (USDA): www.choosemyplate.gov Office of Disease Prevention and Health Promotion (ODPHP): health.gov Summary You can delay or prevent type 2 diabetes by eating healthy foods, losing weight if needed, and increasing your physical activity. Talk with your health care provider about your risk factors for type 2 diabetes and how you can reduce your risk. It can be difficult to recognize the signs of type 2 diabetes. The best way to avoid possible damage to your body is to take action to prevent the disease before you develop symptoms. Get screening tests as told by your health care provider. This information is not intended to replace advice given to you by your health care provider. Make sure you discuss any questions you have with your health care provider. Document Revised: 07/11/2021 Document Reviewed: 07/11/2021 [employer] Patient Education 2022 [employer]. 10/20/2022 10:37:17 Preventing Hypoglycemia Preventing Hypoglycemia Hypoglycemia occurs when the level of sugar (glucose) in the blood is too low. Hypoglycemia can happen in people who do or do not have diabetes (diabetes mellitus). It can develop quickly, and it canbe a medical emergency. For most people with diabetes, a blood glucose level below 70 mg/dL (3.9 mmol/L) is considered hypoglycemia. Glucose is a type of sugar that provides the body's main source of energy. Certain hormones (insulin and glucagon) control the level of glucose in the blood. Insulin lowers blood glucose, and glucagon increases blood glucose. Hypoglycemia can result from having too much insulin in the bloodstream, or from not eating enough food that contains glucose. Your risk for hypoglycemia is higher: If you take insulin or diabetes medicines to help lower your blood glucose or to help your body make more insulin. If you skip or delay a meal or snack. If you are ill. During and after exercise. You can prevent hypoglycemia by working with your health care provider to adjust your meal plan as needed and by taking other precautions. How can hypoglycemia affect me? Mild symptoms Mild hypoglycemia may not cause any symptoms. If you do have symptoms, they may include: Hunger. Sweating and feeling clammy. Dizziness or feeling light-headed. Sleepiness or restless sleep. Nausea. Increased heart rate. Headache. Blurry vision. Mood changes, including irritability or anxiety. Tingling or numbness around the mouth, lips, or tongue. If mild hypoglycemia is not recognized and treated, it can quickly become moderate or severe hypoglycemia. Moderate symptoms Moderate hypoglycemia can cause: Confusion and poor judgment. Behavior changes. Weakness. Irregular heartbeat. A change in coordination. Severe symptoms Severe hypoglycemia is a medical emergency. It can cause: Fainting. Seizures. Loss of consciousness (coma). . What nutrition changes can be made? Work with your health care provider or dietitian to make a healthy meal plan that is right for you.Follow your meal plan carefully. Eat meals at regular times. If recommended by your health care provider, have snacks between meals. Donot skip or delay meals or snacks. You can be at risk for hypoglycemia if you are not getting enough carbohydrates. What lifestyle changes can be made? Work closely with your health care provider to manage your blood glucose. Make sure you know: ?Your goal blood glucose levels. ?How and when to check your blood glucose. ?The symptoms of hypoglycemia. It is important to treat hypoglycemia right away to keep it from becoming severe. Do not drink alcohol on an empty stomach. When you are ill, check your blood glucose more often than usual. Make a sick day plan in advance with your health care provider. Follow this plan whenever you cannot eat or drink normally. Always check your blood glucose before, during, and after exercise. How is this treated? This condition can often be treated by immediately eating or drinking something that contains sugarwith 15 grams of fast-acting carbohydrate, such as: 4 oz (120 mL) of fruit juice. 4 oz (120 mL) of regular soda (not diet soda). Several pieces of hard candy. Check food labels to find out how many pieces to eat for 15 grams. 1 Tbsp (15 mL) of sugar or honey. 4 glucose tablets. 1 tube of glucose gel. Treating hypoglycemia if you have diabetes If you are alert and able to swallow safely, follow the 15:15 rule: Take 15 grams of a fast-acting carbohydrate. Talk with your health care provider about how much youshould take. Fast-acting options include: ?Glucose tablets (take 4 tablets). ?Several pieces of hard candy. Check food labels to find out how many pieces to eat for 15 grams. ?4 oz (120 mL) of fruit juice. ?4 oz (120 mL) of regular soda (not diet soda). ?1 Tbsp (15 mL) of sugar or honey. ?1 tube of glucose gel. Check your blood glucose 15 minutes after you take the carbohydrate. If the repeat blood glucose level is still at or below 70 mg/dL (3.9 mmol/L), take 15 grams of a carbohydrate again. If your blood glucose level does not increase above 70 mg/dL (3.9 mmol/L) after 3 tries, seek emergency medical care. After your blood glucose level returns to normal, eat a meal or a snack within 1 hour. Treating severe hypoglycemia Severe hypoglycemia is when your blood glucose level is below 54 mg/dL (3 mmol/L). Severe hypoglycemia is a medical emergency. Get medical help right away. If you have severe hypoglycemia and you cannot eat or drink, you may need glucagon. A family memberor close friend should learn how to check your blood glucose and how to give you glucagon. Ask yourhealth care provider if you need to have an emergency glucagon kit available. Severe hypoglycemia may need to be treated in a hospital. The treatment may include getting glucosethrough an IV. You may also need treatment for the cause of your hypoglycemia. Where to find more information [place] Diabetes Association: www.diabetes.org National [place] of Diabetes and Digestive and Kidney Diseases: www.niddk.nih.gov Association of Diabetes Care & Education Specialists: www.diabeteseducator.org Contact a health care provider if: You have problems keeping your blood glucose in your target range. You have frequent episodes of hypoglycemia. Get help right away if: You continue to have hypoglycemia symptoms after eating or drinking something containing glucose. Your blood glucose level is below 54 mg/dL (3 mmol/L). You faint. You have a seizure. These symptoms may represent a serious problem that is an emergency. Do not wait to see if the symptoms will go away. Get medical help right away. Call your local emergency services (911 in the [place] Do not drive yourself to the hospital. Summary Know the symptoms of hypoglycemia and when you are at risk for it, such as during exercise or when you are sick. Check your blood glucose often when you are at risk for hypoglycemia. Hypoglycemia can develop quickly, and it can be dangerous if it is not treated right away. If you have a history of severe hypoglycemia, make sure your family or a close friend knows how to use your glucagon kit. Make sure you know how to treat hypoglycemia. Keep a fast-acting carbohydrate option available whenyou may be at risk for hypoglycemia. This information is not intended to replace advice given to you by your health care provider. Make sure you discuss any questions you have with your health care provider. Document Revised: 03/17/2021 Document Reviewed: 03/17/2021 [employer] Patient Education 2022 [employer]. 10/20/2022 10:37:16 Gestational Diabetes Mellitus, Diagnosis, [id number] Gestational Diabetes Mellitus, Diagnosis Gestational diabetes mellitus is a form of diabetes. It can happen when you are . The diabetes goes away after you give . If you do not get treated for this condition, it may cause problems for you or your baby. What are the causes? This condition is caused by changes in your body when you are . When these happen: A part of the body called the pancreas does not make enough insulin. The body cannot use insulin in the right way. Sugars cannot get into cells in your body. The sugars stay in your blood. This leads to high blood sugar. What increases the risk? Being older than age 25 when . Having someone with diabetes in your family. Too much body weight. Having had this condition in the past. Polycystic ovary syndrome. Being with more than one baby. What are the signs or symptoms? Being thirsty often. Being hungry often. Needing to pee more often. How is this treated? Eat a healthy diet. Get more exercise. Check your blood sugar often. Take insulin and other medicines, if needed. Work with an expert on this condition, if told. Follow these instructions at home: Learn about your diabetes Ask your doctor: How often should I check my blood sugar? Where do I get the equipment? What medicines do I need? When should I take them? Do I need to meet with an educator? Who can I call if I have questions? Where can I find a support group? General instructions Take medicines only as told by your doctor. Stay at a healthy weight. Drink enough fluid to keep your pee pale yellow. Wear an alert bracelet or carry a card that shows you have this condition. Keep all follow-up visits. Where to find more information [place] Diabetes Association (ADA): diabetes.org Association of Diabetes Care & Education Specialists (ADCES): diabeteseducator.org Centers for Disease Control and Prevention (CDC): cdc.gov [place] Association: americanpregnancy.org U.S. Department of Agriculture MyPlate: myplate.gov Contact a doctor if: Your blood sugar is at or above 240 mg/dL (13.3 mmol/L). Your blood sugar is at or above 200 mg/dL (11.1 mmol/L) and you have ketones in your pee. You have a fever. You are sick for 2 days or more and you do not get better. You have either of these problems for more than 6 hours: ?You vomit every time you eat or drink. ?You have watery poop (diarrhea). Get help right away if: You cannot think clearly. You are not breathing well. You have a lot of ketones in your pee. Your baby seems to move less than normal. Abnormal fluid or blood starts to come out of your vagina. You start having contractions before your due date. You may feel your belly tighten. You have a very bad headache. These symptoms may be an emergency. Get help right away. Call your local emergency services (911 int [place] Do not wait to see if the symptoms will go away. Do not drive yourself to the hospital. Summary Gestational diabetes is a form of diabetes. It can happen when you are . This condition occurs when your body cannot make or use insulin in the right way. Eat a healthy diet, exercise, and use medicines or insulin as told by your doctor. Tell your doctor if your blood sugar is high, you have a fever, or you vomit every time you eat or drink. Get help right away if you cannot think clearly, you are not breathing well, or your baby seems to move less than normal. This information is not intended to replace advice given to you by your health care provider. Make sure you discuss any questions you have with your health care provider. Document Revised: 09/20/2020 Document Reviewed: 09/20/2020 [employer] Patient Education 2022 [employer]. Follow Up Care 09/19/2022 14:47:09 With:PRAVEEN RESENDEZ FAAFP, CHRIS Perez, PED Address: [address] [place] [id number] When:Within 3 Month(s) [facility] 06-01-2023 History of Present illness Narrative* Salvador Calix MD - 09/28/2022 5:00 PM EDT Images from the original note were not included. Salvador Calix MD NAME: Madhu Rendon CLINIC NO.: [id number] DATE OF SERVICE: September 28, 2022 (Levon) Some elements in this clinic note that are critical to medical decision making have been carefully reviewed and included from a prior clinic note dated: July 27, 2022 (Brendaelaina) Additional Clinicians involved in Madhu Rendon's care: Drs. Herrmann, Jorge Monge, Humaira Gaviria, VIRTUAL VISIT PROGRESS NOTE This is a virtual visit using Telephone only for 25 minutes . It required patient-provider interaction for the medical decision making as documented below. I have communicated my name and active licensure. The patient's identity and physical location wereverified at the time of this visit. Either the patient or their legal labor service representative has been informed of the risks and benefits of -- and alternatives to -- treatment through a remote evaluation andconsents to proceed with the evaluation remotely. CC: hypercoag state. ASSESSMENT: 36 year old woman 25 weeks presents with a prior history of CVA in 2016 and anantiphospholipid antibody that was identified much later in 2018. These were found in [place], [place]. I don't have access to these results. Patient believes that she has anticardiolipin antibodies but wasn't sure. She has been on Plavix for approximately year and a half and had bled heavily on aspirin preceding this. She currently has no evidence of active thrombosis. We had discussed the potential etiology of antiphospholipid antibodies in the context of her symptoms which preceded her diagnosis by approximately2 years presenting as a CVA. At some point in time she had a vW disease workup but we don't have that specific data from prior workup. After discussion with her neurologist, Dr. Jorge Monge, we put her on prophylactic dose Lovenox throughout her prior but is now again and at 25 weeks. Is having difficulty with associated diabetes. Recalls having had a target-like rash shortly before presenting to [place] in 2016 with headaches and was diagnosed with a CVA. - She saw Dr. Baugh but no relevant conclusion was made. She remains on Lovenox - her youngest son is 36 mo now and her newest child is 11 weeks PLAN: Continue Lovenox - patient prefers 40 mg (rather than rec 80mg) 8 weeks - labs Phone / Virtual call after HPI: Updated Visit, September 28, 2022: Had blood with BM x2 - has had this before and stayed on Lovenox Hgb 13.1 @ [facility] Recommended ER if persisting bleeding but she would prefer to stay on Lovenox for now. Updated Visit, July 27, 2022: Madhu returns today and has 2 of her youngest children with her. She didn't hemorrhage with her most recent delivery and has a healthy baby girl age 11 weeks. Her 3 year old son is with her too. Joints ache but perhaps related to 4 children 14- 11 weeks. Updated Visit, March 27, 2022: Madhu is 36 years old and is doing well with her current maintain on low-dose prophylactic Lovenox. Doing well overall but is having some bleeding following oral iron therapy due to constipation. May qualify for IV iron which will help her. She hemorrhaged after her last and required transfusion. 33 weeks - scheduled to be induced at 39 weeks Updated Visit, January 30, 2022: Madhu returns at 25 weeks of her current . She remains on prophylactic dose Lovenox. Appreciate my colleagues opinion regarding her anticoagulation and she found Dr. Hamlin's opinion very helpful as well. We reviewed the recommendations together, but we will follow her preference to treatment. She prefers to stay on the 40 mg dose daily and will monitor for hemorrhage as she has done in the past. She is having trouble with hyperglycemia in and also has become mildly anemic although, this is most likely due to plasma expansion. I have checked iron studies and those are pending. She is otherwise getting along very well. 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 In any case I do think thatthis is a risk factor for her stroke as well as for recurrent loss. The fact that she hashad a stroke and also had 1 late loss classifies her as having the antiphospholipid syndrome. Though she has done well on at least one while on Lovenox the standard of care would be to have her on both Lovenox and low-dose aspirin. She is somewhat hesitant to take aspirin as she hashad some intolerance before, but I encouraged her to consider 81 mg of daily aspirin. While 1 can make an argument for full dose anticoagulation during because of her previous stroke, giventhat she is also on aspirin I would recommend that we simply at this point increase her Lovenox dose to 80 mg daily. However in the period I would increase to a therapeutic range of at least 80 mg twice daily. She has not had antiphospholipid antibody testing since June 2019, and I would recommend repeatingan antibody panel at this time. I have put in a standing order for lupus anticoagulant testing. (Earl, 08/2021) Updated Visit, August 01, 2021: Doing well overall and has resolved some of her symptoms. No additional stroke like symptoms. Stillbreastfeeding and will maintain lovenox until she is finished. Has recurring UTI with pseudomonas - having mild symptoms now. Hair is dry and has patches Updated Visit, December 23, 2020: Father at the End of September 2020 so she's had a rough few months. He was 73 and had a colorectal cancer. Mother also had colon cancer and at age 69. Both lived in [facility] but she was adopted. She was not able to see ID in October and will be seeing Dr. Baugh next week. Also will have her see Dr. Hamlin for her clotting disorder and make any other recommendations to optimize her treatment. Updated Visit, October 08, 2020: Telephone only Received call from pt stating she was seen in [facility] ER for numbness in her chest, throat, and extremities, and sob which has been worsening over the last week. We arranged a telephone visit for her chanw questions with me. Madhu Rendon is a 34 year old female seen for Hypercoagulable state and recent concerns and symptoms that required her to be seen at [facility] ER. She went to the ER with Gradual worsening of breathing after progressive tingling of fingers and legs. She currently remains very fatigued even though she is sleeping well. Now recalls that before her stroke she remembers having a bull's eye rash and was seen with severe headaches in [facility] was found to have a stroke in 2016. Updated Visit, May 05, 2020: Madhu is 34 years old and returns for routine check in for chronic anticoagulation of her hypercoagulable disorder that presented with a CVA approximately 2018. Full work-up has revealed some low-level anticardiolipin antibodies in an indeterminate range, but given her's symptoms and thrombotic event her neurologist and I feel that it be appropriate to at least put her on prophylactic dosing of anticoagulation. She is currently on Lovenox because she is still breast feeding her 4-month-old son. Recently she reports that she had numbness preceding a root canal and was sent to [facility] for MRI which was negative but non-contrasted. She like her chemistries checked because she's had hyponatremia before. She also complains that even though she is still breast feeding, she is still gaining weight hasn'tbeen eating healthy as food. She also has started vaginal spotting and has started Her menses but is not heavy at this time. Fatigue is pronounced but isn't anemic today. All labs reviewed. Updated Visit, February 02, 2020: Madhu is 34 yo and delivered a healthy baby boy who is now 3 weeks old. She bled after and was downto 8.5 but didn't need transfusions. She hemorrhaged with each of her prior 2 pregnancies. Daughteris Autistic 51/2. Her son who is 12 had Tics when he was 6. Discussed briefly the risks of further with requirements of anticoagulation. Labs appear to be stable Is possibly getting Mirena but is still contemplating future . I asked her to discuss her risk with Dr. Herrmann. She will need to be on lovenox until she stops breast feeding. After this remains the question of resuming plavix or consider DOAC. Initial Visit, May 19, 2019: Madhu Rendon presents today at the request of Dr. Herrmann for oncology evaluation. She is a 33 year old female who is currently on Plavix for CVA prophylaxis and is been referred for opinion regarding changing over to Lovenox due to her underlying findings of antiphospholipid antibodies. Her history goes back to January 2016 in [facility] where she had persisting headaches and slurred speech followed by lower extremity weakness. This took a few months to resolve and she is back to her normal state of being but some point in time during her her next she was seen by Dr. Humera Hyde in [place] as well and was found to have an antiphospholipid antibody. I believe this is after a spontaneous . She had a bleeding on aspirin but has been stable on Plavix. In the absence of an active measurable thrombosis she was not given full dose attic regulation. The thinking that perhaps the CVA symptoms were mediated by a transient ischemic event precipitated by hormone therapy. Nevertheless now that she has been identified antiphospholipid antibody which she believes to be anticardiolipin antibody she will require some form of prophylaxis. 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 Kidney stones early 20's Missed menses Nausea and vomiting Rectal bleeding PAST SURGICAL HISTORY Procedure Laterality Date BREAST BIOPSY HX Negative EXTRACTION, ERUPTED TOOTH OR EXPOSED ROOT (ELEVATION AND/OR FORCEPS REMOVAL) FAMILY HISTORY Adopted: Yes Problem Relation Age of Onset Stroke Father Diabetes Father Type 2 Multiple Sclerosis Maternal Aunt Heart Maternal Grandfather other (Other) Daughter sacral dimple, frbrous tisse of tail bone other (Other) Mother Spinabifida Diabetes Sister type 2 Diabetes Paternal Grandmother type 2 Diabetes Paternal Grandfather type 2 Social History Tobacco Use Smoking status: Never Smokeless tobacco: Never Vaping Use Vaping Use: Never used Substance Use Topics Alcohol use: No Drug use: No Current Outpatient Medications Medication Sig enoxaparin (LOVENOX) 40 mg/0.4 mL INJECT THE CONTENTS OF ONE SYRINGE (0.4 ML) SUBCUTANEOUSLY EVERY 24 HOURS metFORMIN ER (GLUCOPHAGE XR) 500 mg 24 hr tablet PRO FE 180 mg iron cap levothyroxine (SYNTHROID) 25 mcg tablet Take 25 mcg by mouth. (Patient not taking: Reported on 07/27/2022) multivitamin tablet Take 1 tablet by mouth once daily. No current facility-administered medications for this visit. ALLERGIES Allergen Reactions Ciprofloxacin Other: See Comments, Unknown Dizziness, weakness sweating Ciprofloxacin-Fluoc* Other: See Comments Dizziness, weakness sweating Lactose GI Upset Diarrhea Seasonal Allergies GI Upset, Other: See Comments Lactalbumin Unknown, GI Upset Crampy and gassy Milk Other: See Comments Crampy and gassy Diarrhea Other reaction(s): GI Upset Crampy and gassy Milk Containing Pro* Other: See Comments Crampy and gassy Diarrhea Other reaction(s): GI Upset Crampy and gassy REVIEW OF SYSTEMS: As noted in HPI PHYSICAL EXAMINATION: VIDEO EXAM: (if completed, performed via video enabled technology) No exam performed Salvador Abhyankar, MD, CPE [facility] Provided at: [place], [place] CC: MD Wilton Day, [address] [place] [address] Humaira Gaviria MD [address] [place] [address] MD Cosmo Kingston MD Michael Blank, MD documented in this encounterOhiohealth [facility]05-24-2023 Miscellaneous Notes* Telephone Encounter - Cheri Acharya Sec - 09/20/2022 7:06 AM EDT Cxed appt * Telephone Encounter - Valeri Yan RN - 09/19/2022 3:29 PM EDT Patient would like to have labs drawn at [facility]. Called [facility] lab to get fax number. Lab orders faxed to [phone] Valeri Yan RN PSS: Can you cancel lab appointment for 09/21/22 here. Thanks. Valeri Yan RN documented in this encounterOhiohealth Nelsonville [facility]04-04-2023 Instructions* Patient Instructions* Salvador Calix MD - 08/01/2022 10:56 AM EDT Continue Lovenox - patient prefers 40 mg (rather than rec 80mg) 8 weeks - labs Phone / Virtual call after documented in this encounterOhiohealth Nelsonville [facility] Center03-30-2023 History of Present illness Narrative* Salvador Calix MD - 07/27/2022 1:18 PM EDT NAME: Madhu Rendon [facility] NO.: [id number] DATE OF SERVICE: July 27, 2022 (Levon) Some elements in this clinic note that are critical to medical decision making have been carefully reviewed and included from a prior clinic note dated: March 27, 2022 (Levon) Additional Clinicians involved in Madhu Rendon's care: Drs. Herrmann, Jorge Monge, Humaira Gaviria, CC: hypercoag state. ASSESSMENT: 36 year old woman 25 weeks presents with a prior history of CVA in 2016 and anantiphospholipid antibody that was identified much later in 2018. These were found in [place], [place]. I don't have access to these results. Patient believes that she has anticardiolipin antibodies but wasn't sure. She has been on Plavix for approximately year and a half and had bled heavily on aspirin preceding this. She currently has no evidence of active thrombosis. We had discussed the potential etiology of antiphospholipid antibodies in the context of her symptoms which preceded her diagnosis by approximately2 years presenting as a CVA. At some point in time she had a vW disease workup but we don't have that specific data from prior workup. After discussion with her neurologist, Dr. Jorge Monge, we put her on prophylactic dose Lovenox throughout her prior but is now again and at 25 weeks. Is having difficulty with associated diabetes. Recalls having had a target-like rash shortly before presenting to [place] in 2016 with headaches and was diagnosed with a CVA. - She saw Dr. Baugh but no relevant conclusion was made. She remains on Lovenox - her youngest son is 36 mo now and her newest child is 11 weeks PLAN: Continue Lovenox - patient prefers 40 mg (rather than rec 80mg) 8 weeks - labs Phone / Virtual call after HPI: Updated Visit, July 27, 2022: Madhu returns today and has 2 of her youngest children with her. She didn't hemorrhage with her most recent delivery and has a healthy baby girl age 11 weeks. Her 3 year old son is with her too. Joints ache but perhaps related to 4 children 14- 11 weeks. Updated Visit, March 27, 2022: Madhu is 36 years old and is doing well with her current maintain on low-dose prophylactic Lovenox. Doing well overall but is having some bleeding following oral iron therapy due to constipation. May qualify for IV iron which will help her. She hemorrhaged after her last and required transfusion. 33 weeks - scheduled to be induced at 39 weeks Updated Visit, January 30, 2022: Madhu returns at 25 weeks of her current . She remains on prophylactic dose Lovenox. Appreciate my colleagues opinion regarding her anticoagulation and she found Dr. Hamlin's opinion very helpful as well. We reviewed the recommendations together, but we will follow her preference to treatment. She prefers to stay on the 40 mg dose daily and will monitor for hemorrhage as she has done in the past. She is having trouble with hyperglycemia in and also has become mildly anemic although, this is most likely due to plasma expansion. I have checked iron studies and those are pending. She is otherwise getting along very well. 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 In any case I do think thatthis is a risk factor for her stroke as well as for recurrent loss. The fact that she hashad a stroke and also had 1 late loss classifies her as having the antiphospholipid syndrome. Though she has done well on at least one while on Lovenox the standard of care would be to have her on both Lovenox and low-dose aspirin. She is somewhat hesitant to take aspirin as she hashad some intolerance before, but I encouraged her to consider 81 mg of daily aspirin. While 1 can make an argument for full dose anticoagulation during because of her previous stroke, giventhat she is also on aspirin I would recommend that we simply at this point increase her Lovenox dose to 80 mg daily. However in the period I would increase to a therapeutic range of at least 80 mg twice daily. She has not had antiphospholipid antibody testing since June 2019, and I would recommend repeatingan antibody panel at this time. I have put in a standing order for lupus anticoagulant testing. (Earl, 08/2021) Updated Visit, August 01, 2021: Doing well overall and has resolved some of her symptoms. No additional stroke like symptoms. Stillbreastfeeding and will maintain lovenox until she is finished. Has recurring UTI with pseudomonas - having mild symptoms now. Hair is dry and has patches Updated Visit, December 23, 2020: Father at the End of September 2020 so she's had a rough few months. He was 73 and had a colorectal cancer. Mother also had colon cancer and at age 69. Both lived in [facility] but she was adopted. She was not able to see ID in October and will be seeing Dr. Baugh next week. Also will have her see Dr. Hamlin for her clotting disorder and make any other recommendations to optimize her treatment. Updated Visit, October 08, 2020: Telephone only Received call from pt stating she was seen in [facility] ER for numbness in her chest, throat, and extremities, and sob which has been worsening over the last week. We arranged a telephone visit for her chanw questions with me. Madhu Rendon is a 34 year old female seen for Hypercoagulable state and recent concerns and symptoms that required her to be seen at [facility] ER. She went to the ER with Gradual worsening of breathing after progressive tingling of fingers and legs. She currently remains very fatigued even though she is sleeping well. Now recalls that before her stroke she remembers having a bull's eye rash and was seen with severe headaches in [facility] was found to have a stroke in 2016. Updated Visit, May 05, 2020: Madhu is 34 years old and returns for routine check in for chronic anticoagulation of her hypercoagulable disorder that presented with a CVA approximately 2018. Full work-up has revealed some low-level anticardiolipin antibodies in an indeterminate range, but given her's symptoms and thrombotic event her neurologist and I feel that it be appropriate to at least put her on prophylactic dosing of anticoagulation. She is currently on Lovenox because she is still breast feeding her 4-month-old son. Recently she reports that she had numbness preceding a root canal and was sent to [facility] for MRI which was negative but non-contrasted. She like her chemistries checked because she's had hyponatremia before. She also complains that even though she is still breast feeding, she is still gaining weight hasn'tbeen eating healthy as food. She also has started vaginal spotting and has started Her menses but is not heavy at this time. Fatigue is pronounced but isn't anemic today. All labs reviewed. Updated Visit, February 02, 2020: Madhu is 34 yo and delivered a healthy baby boy who is now 3 weeks old. She bled after and was downto 8.5 but didn't need transfusions. She hemorrhaged with each of her prior 2 pregnancies. Daughteris Autistic 51/2. Her son who is 12 had Tics when he was 6. Discussed briefly the risks of further with requirements of anticoagulation. Labs appear to be stable Is possibly getting Mirena but is still contemplating future . I asked her to discuss her risk with Dr. Herrmann. She will need to be on lovenox until she stops breast feeding. After this remains the question of resuming plavix or consider DOAC. Initial Visit, May 19, 2019: Madhu Rendon presents today at the request of Dr. Herrmann for oncology evaluation. She is a 33 year old female who is currently on Plavix for CVA prophylaxis and is been referred for opinion regarding changing over to Lovenox due to her underlying findings of antiphospholipid antibodies. Her history goes back to January 2016 in [facility] where she had persisting headaches and slurred speech followed by lower extremity weakness. This took a few months to resolve and she is back to her normal state of being but some point in time during her her next she was seen by Dr. Humera Hyde in [place] as well and was found to have an antiphospholipid antibody. I believe this is after a spontaneous . She had a bleeding on aspirin but has been stable on Plavix. In the absence of an active measurable thrombosis she was not given full dose attic regulation. The thinking that perhaps the CVA symptoms were mediated by a transient ischemic event precipitated by hormone therapy. Nevertheless now that she has been identified antiphospholipid antibody which she believes to be anticardiolipin antibody she will require some form of prophylaxis. REVIEW OF SYSTEMS Per HPI and otherwise negative by full review of organ systems. ECOG PERFORMANCE STATUS: 0 PHYSICAL EXAMINATION: Vitals: BP 136/79 Pulse 76 Temp (Src) 97.5 (Temporal) Resp 16 Ht 5' 6.024 (1.68m) Wt 237lb 9.6 oz (107.8kg) SpO2 97% LMP 04/08/2019 BMI 38.32 kg/(m^2). Body surface area is 2.24 meters squared. Exam limited to gross visualization where appropriate due to COVID-19. Gen.: This is an age-appropriate patient in no acute distress. Head: Appears atraumatic with no visible lesions. Eyes: Pupils equally round and reactive to light, extraocular muscles are intact. Neck: Supple. Mouth: Mucous membranes appeared to be moist. Respiratory: Appears to be respiring comfortably. Neurologic: Nonfocal to gross visualization. Alert and oriented 3. Psychiatric: No evidence of inappropriate anxiety or depression. Skin: Visible areas of skin without rash, lesions, wounds or petechiae. ALLERGIES: ALLERGIES Allergen Reactions Ciprofloxacin Other: See Comments, Unknown Dizziness, weakness sweating Ciprofloxacin-Fluoc* Other: See Comments Dizziness, weakness sweating Lactose GI Upset Diarrhea Seasonal Allergies GI Upset, Other: See Comments Lactalbumin Unknown, GI Upset Crampy and gassy Milk Other: See Comments Crampy and gassy Diarrhea Other reaction(s): GI Upset Crampy and gassy Milk Containing Pro* Other: See Comments Crampy and gassy Diarrhea Other reaction(s): GI Upset Crampy and gassy MEDICATIONS: enoxaparin (LOVENOX) 40 mg/0.4 mL INJECT THE CONTENTS OF ONE SYRINGE (0.4 ML) SUBCUTANEOUSLY EVERY 24 HOURS metFORMIN ER (GLUCOPHAGE XR) 500 mg 24 hr tablet multivitamin tablet Take 1 tablet by mouth once daily. PRO FE 180 mg iron cap levothyroxine (SYNTHROID) 25 mcg tablet Take 25 mcg by mouth. (Patient not taking: Reported on 07/27/2022) LABORATORY VALUES: WBC (k/uL) Date Value 07/27/2022 8.14 RBC (m/uL) Date Value 07/27/2022 4.50 Hemoglobin (g/dL) Date Value 07/27/2022 13.3 Hematocrit (%) Date Value 07/27/2022 40.1 MCV (fL) Date Value 07/27/2022 89.1 MCH (pg) Date Value 07/27/2022 29.6 MCHC (g/dL) Date Value 07/27/2022 33.2 RDW-CV (%) Date Value 07/27/2022 14.5 Platelet Count (k/uL) Date Value 07/27/2022 364 MPV (fL) Date Value 07/27/2022 9.9 Glucose (mg/dL) Date Value 07/27/2022 82 BUN (mg/dL) Date Value 07/27/2022 12 Creatinine (mg/dL) Date Value 07/27/2022 0.91 Sodium (mmol/L) Date Value 07/27/2022 138 Potassium (mmol/L) Date Value 07/27/2022 4.0 Chloride (mmol/L) Date Value 07/27/2022 100 CO2 (mmol/L) Date Value 07/27/2022 26 Protein, Total (g/dL) Date Value 07/27/2022 8.0 Albumin (g/dL) Date Value 07/27/2022 4.9 Calcium, Total (mg/dL) Date Value 07/27/2022 10.1 Alkaline Phosphatase (U/L) Date Value 07/27/2022 89 Bilirubin, Total (mg/dL) Date Value 07/27/2022 0.2 AST (U/L) Date Value 07/27/2022 22 ALT (U/L) Date Value 07/27/2022 32 DIAGNOSIS: (D68.59) Primary hypercoagulable state (HCC) (primary encounter diagnosis) Plan: CBC + DIFF, COMP METABOLIC PANEL, IRON + TIBC, FERRITIN BLD, VITAMIN B12 BLOOD, FOLATE SERUM (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) Plan: CBC + DIFF, COMP METABOLIC PANEL, IRON + TIBC, FERRITIN BLD, VITAMIN B12 BLOOD, FOLATE SERUM (I69.328) CVA, old, speech/language deficit Plan: CBC + DIFF, COMP METABOLIC PANEL, IRON + TIBC, FERRITIN BLD, VITAMIN B12 BLOOD, FOLATE SERUM PAST MEDICAL HISTORY Diagnosis Date Antiphospholipid antibody syndrome (HCC) Asthma Bilateral ovarian cysts Blood in stool Clear vaginal discharge Complex cyst of right ovary Dysuria during Fluid imbalance History of miscarriage, currently Hypercoagulable state (HCC) Iron deficiency anemia of 03/27/2022 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 Kidney stones early 20's Missed menses Nausea and vomiting Rectal bleeding PAST SURGICAL HISTORY Procedure Laterality Date BREAST BIOPSY HX Negative EXTRACTION, ERUPTED TOOTH OR EXPOSED ROOT (ELEVATION AND/OR FORCEPS REMOVAL) Social History Tobacco Use Smoking status: Never Smokeless tobacco: Never Vaping Use Vaping Use: Never used Substance Use Topics Alcohol use: No Drug use: No FAMILY HISTORY Adopted: Yes Problem Relation Age of Onset Stroke Father Diabetes Father Type 2 Multiple Sclerosis Maternal Aunt Heart Maternal Grandfather other (Other) Daughter sacral dimple, frbrous tisse of tail bone other (Other) Mother Spinabifida Diabetes Sister type 2 Diabetes Paternal Grandmother type 2 Diabetes Paternal Grandfather type 2 I spent a total of 30 minutes on the date of the service which included preparing to see the patient, [id number] patient care, completing clinical documentation, obtaining and/or reviewing separately obtained history, performing a medically appropriate examination, counseling and educating the pat ient/family/caregiver, ordering medications, tests, or procedures, independently interpreting results (not separately reported), and care coordination (not separately reported). Salvador Calix MD, CPE Hematology and Oncology Services Provided at: [place], [place] CC: MD Wilton Day, [address] [place] [address] Humaira Gaviria MD [address] [place] [id number] MD Cosmo Kingston MD Michael Blank, MD documented in this encounterOhio[facility]12-07-2022 History of Present illness Narrative* June Lombardo RN - 04/05/2022 2:43 PM EST Pt noticeably anxious about receiving infusion today. All questions answered appropriately. PIV placed and venofer initiated. Pt called nursing to chairside shortly after to ask if feeling dizzy andlike the lights are really bright is normal with iron. Infusion placed on hold. VS obtained and WNL. FSBS checked d/t gestational diabetes and WNL. Pt given time to relax with infusion off. I asked if she has had migraines in the past. Pt said not usually. Iron infusion restarted at a slower rate and titrated up to standard infusion rate. documented in this encounterOhiohealth [facility]12-06-2022 Miscellaneous Notes* Telephone Encounter - Marleen Ramirez Sec - 04/04/2022 1:40 PM EST Spoke with Madhu on the phone and we were able to get her scheduled for her weekly venofer x 4 starting on 04-05. Patient then wants appts due to her OB weekly appts on Sun.'s * Telephone Encounter - Meme Gonzalez RN - 04/04/2022 1:34 PM EST Received call from pt with multiple questions regarding her upcoming IV iron appt. All questions answered. Pt transferred to desk director at her request so she can reschedule dates of IV iron d/t otherappts. FELY: Pt would like to have Venofer ordered and not get Monoferric even if approved. Please place orders if agreeable. eMme Gonzalez RN documented in this encounterOhiohealth [facility]12-01-2022 Miscellaneous Notes* Telephone Encounter - Harjit Haskins - 03/30/2022 1:23 PM EST Attempted to contact patient again, no answer. Left another message. Harjit Haskins * Telephone Encounter - Harjit Haskins - 03/28/2022 2:32 PM EST Patient has been scheduled to begin on 04/05 - scheduled for Venofer and if Monoferric is approved, will cancel additional doses. Call placed to patient, no answer. Left message to call back to confirm scheduling. Harjit Haskins * Telephone Encounter - Meme Gonzalez RN - 03/28/2022 11:10 AM EST Images from the original note were not included. Salvador Calix MD [facility] Triage Pool; [facility] Clerical Pool She needs iron MUNIRA - if monoferric isn't approved, lets get her in weekly for Venna for. * Telephone Encounter - Harjit Divine - 03/27/2022 2:57 PM EST 2. Consider IV iron a. Triage nurse to please call iron results when available this week documented in this encounterOhiohealth Nelsonville [facility] Center11-28-2022 Instructions* Patient Instructions* Salvador Calix MD - 03/27/2022 2:51 PM EST Continue Lovenox - patient prefers 40 mg (rather than rec 80mg) Consider IV iron Triage nurse to please call iron results when available this week Will recheck antiphospholipid antibodies as ordered and every 6 months. RTC in 8 weeks - labs same day. documented in this encounterOhiohealth [facility]11-28-2022 History of Present illness Narrative* Salvador Calix MD - 03/27/2022 2:15 PM EST Images from the original note were not included. NAME: Madhu Rendon CLINIC NO.: [id number] DATE OF SERVICE: March 27, 2022 ([facility]) Some elements in this clinic note that are critical to medical decision making have been carefully reviewed and included from a prior clinic note dated: January 30, 2022 ([place]) Additional Clinicians involved in Madhu Rendon's care: Drs. Herrmann, Jorge Monge, Humaira Gaviria, CC: hypercoag state. ASSESSMENT: 36 year old woman 25 weeks presents with a prior history of CVA in 2016 and anantiphospholipid antibody that was identified much later in 2018. These were found in [place], [place]. I don't have access to these results. Patient believes that she has anticardiolipin antibodies but wasn't sure. She has been on Plavix for approximately year and a half and had bled heavily on aspirin preceding this. She currently has no evidence of active thrombosis. We had discussed the potential etiology of antiphospholipid antibodies in the context of her symptoms which preceded her diagnosis by approximately2 years presenting as a CVA. At some point in time she had a vW disease workup but we don't have that specific data from prior workup. After discussion with her neurologist, Dr. Jorge Monge, we put her on prophylactic dose Lovenox throughout her prior but is now again and at 25 weeks. Is having difficulty with associated diabetes. Recalls having had a target-like rash shortly before presenting to [place] in 2016 with headaches and was diagnosed with a CVA. - She saw Dr. Baugh but no relevant conclusion was made. She remains on Lovenox - her youngest son is 24 mo now and she is at 25 weeks PLAN: Continue Lovenox - patient prefers 40 mg (rather than rec 80mg) Consider IV iron Triage nurse to please call iron results when available this week Will recheck antiphospholipid antibodies as ordered and every 6 months. RTC in 8 weeks - labs same day. HPI: Updated Visit, March 27, 2022: Madhu is 36 years old and is doing well with her current maintain on low-dose prophylactic Lovenox. Doing well overall but is having some bleeding following oral iron therapy due to constipation. May qualify for IV iron which will help her. She hemorrhaged after her last and required transfusion. 33 weeks - scheduled to be induced at 39 weeks Updated Visit, January 30, 2022: Madhu returns at 25 weeks of her current . She remains on prophylactic dose Lovenox. Appreciate my colleagues opinion regarding her anticoagulation and she found Dr. Hamlin's opinion very helpful as well. We reviewed the recommendations together, but we will follow her preference to treatment. She prefers to stay on the 40 mg dose daily and will monitor for hemorrhage as she has done in the past. She is having trouble with hyperglycemia in and also has become mildly anemic although, this is most likely due to plasma expansion. I have checked iron studies and those are pending. She is otherwise getting along very well. 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 In any case I do think thatthis is a risk factor for her stroke as well as for recurrent loss. The fact that she hashad a stroke and also had 1 late loss classifies her as having the antiphospholipid syndrome. Though she has done well on at least one while on Lovenox the standard of care would be to have her on both Lovenox and low-dose aspirin. She is somewhat hesitant to take aspirin as she hashad some intolerance before, but I encouraged her to consider 81 mg of daily aspirin. While 1 can make an argument for full dose anticoagulation during because of her previous stroke, giventhat she is also on aspirin I would recommend that we simply at this point increase her Lovenox dose to 80 mg daily. However in the period I would increase to a therapeutic range of at least 80 mg twice daily. She has not had antiphospholipid antibody testing since June 2019, and I would recommend repeatingan antibody panel at this time. I have put in a standing order for lupus anticoagulant testing. (Earl, 08/2021) Updated Visit, August 01, 2021: Doing well overall and has resolved some of her symptoms. No additional stroke like symptoms. Stillbreastfeeding and will maintain lovenox until she is finished. Has recurring UTI with pseudomonas - having mild symptoms now. Hair is dry and has patches Updated Visit, December 23, 2020: Father at the End of September 2020 so she's had a rough few months. He was 73 and had a colorectal cancer. Mother also had colon cancer and at age 69. Both lived in [place], [place] - but she was adopted. She was not able to see ID in October and will be seeing Dr. Baugh next week. Also will have her see Dr. Hamlin for her clotting disorder and make any other recommendations to optimize her treatment. Updated Visit, October 08, 2020: Telephone only Received call from pt stating she was seen in [facility] for numbness in her chest, throat, and extremities, and sob which has been worsening over the last week. We arranged a telephone visit for her toreview questions with me. Madhu Rendon is a 34 year old female seen for Hypercoagulable state and recent concerns and symptoms that required her to be seen at [facility]. She went to the ER with Gradual worsening of breathing after progressive tingling of fingers and legs. She currently remains very fatigued even though she is sleeping well. Now recalls that before her stroke she remembers having a bull's eye rash and was seen with severe headaches in [place], [place] - was found to have a stroke in 2016. Updated Visit, May 05, 2020: Madhu is 34 years old and returns for routine check in for chronic anticoagulation of her hypercoagulable disorder that presented with a CVA approximately 2018. Full work-up has revealed some low-level anticardiolipin antibodies in an indeterminate range, but given her's symptoms and thrombotic event her neurologist and I feel that it be appropriate to at least put her on prophylactic dosing of anticoagulation. She is currently on Lovenox because she is still breast feeding her 4-month-old son. Recently she reports that she had numbness preceding a root canal and was sent to [facility] for MRI which was negative but non-contrasted. She like her chemistries checked because she's had hyponatremia before. She also complains that even though she is still breast feeding, she is still gaining weight hasn'tbeen eating healthy as food. She also has started vaginal spotting and has started Her menses but is not heavy at this time. Fatigue is pronounced but isn't anemic today. All labs reviewed. Updated Visit, February 02, 2020: Madhu is 34 yo and delivered a healthy baby boy who is now 3 weeks old. She bled after and was downto 8.5 but didn't need transfusions. She hemorrhaged with each of her prior 2 pregnancies. Daughteris Autistic 51/2. Her son who is 12 had Tics when he was 6. Discussed briefly the risks of further with requirements of anticoagulation. Labs appear to be stable Is possibly getting Mirena but is still contemplating future . I asked her to discuss her risk with Dr. Herrmann. She will need to be on lovenox until she stops breast feeding. After this remains the question of resuming plavix or consider DOAC. Initial Visit, May 19, 2019: Madhu Rendon presents today at the request of Dr. Herrmann for oncology evaluation. She is a 33 year old female who is currently on Plavix for CVA prophylaxis and is been referred for opinion regarding changing over to Lovenox due to her underlying findings of antiphospholipid antibodies. Her history goes back to January 2016 in [facility] where she had persisting headaches and slurred speech followed by lower extremity weakness. This took a few months to resolve and she is back to her normal state of being but some point in time during her her next she was seen by Dr. Humera Hyde in [place] as well and was found to have an antiphospholipid antibody. I believe this is after a spontaneous . She had a bleeding on aspirin but has been stable on Plavix. In the absence of an active measurable thrombosis she was not given full dose attic regulation. The thinking that perhaps the CVA symptoms were mediated by a transient ischemic event precipitated by hormone therapy. Nevertheless now that she has been identified antiphospholipid antibody which she believes to be anticardiolipin antibody she will require some form of prophylaxis. REVIEW OF SYSTEMS Per HPI and otherwise negative by full review of organ systems. ECOG PERFORMANCE STATUS: 0 PHYSICAL EXAMINATION: Vitals: BP 125/59 Pulse 100 Temp (Src) 97.4 (Temporal) Resp 16 Ht 5' 6.024 (1.68m) Wt 234 lb 3.2 oz (106.2kg) SpO2 97% LMP 04/08/2019 BMI 37.77 kg/(m^2). Body surface area is 2.22 meters squared. Exam limited to gross visualization where appropriate due to COVID-19. Gen.: This is an age-appropriate patient in no acute distress. Head: Appears atraumatic with no visible lesions. Eyes: Pupils equally round and reactive to light, extraocular muscles are intact. Neck: Supple. Mouth: Mucous membranes appeared to be moist. Respiratory: Appears to be respiring comfortably. Neurologic: Nonfocal to gross visualization. Alert and oriented 3. Psychiatric: No evidence of inappropriate anxiety or depression. Skin: Visible areas of skin without rash, lesions, wounds or petechiae. Gravid abdomen. ALLERGIES: ALLERGIES Allergen Reactions Ciprofloxacin Other: See Comments, Unknown Dizziness, weakness sweating Ciprofloxacin-Fluoc* Other: See Comments Dizziness, weakness sweating Lactose GI Upset Diarrhea Seasonal Allergies GI Upset, Other: See Comments Lactalbumin Unknown, GI Upset Crampy and gassy Milk Other: See Comments Crampy and gassy Diarrhea Other reaction(s): GI Upset Crampy and gassy Milk Containing Pro* Other: See Comments Crampy and gassy Diarrhea Other reaction(s): GI Upset Crampy and gassy MEDICATIONS: metFORMIN ER (GLUCOPHAGE XR) 500 mg 24 hr tablet levothyroxine (SYNTHROID) 25 mcg tablet Take 25 mcg by mouth. enoxaparin (LOVENOX) 40 mg/0.4 mL Inject 0.4 mL subcutaneously every 24 hours. multivitamin tablet Take 1 tablet by mouth once daily. PRO FE 180 mg iron cap (Patient not taking: Reported on 03/27/2022) LABORATORY VALUES: WBC (k/uL) Date Value 03/27/2022 9.11 RBC (m/uL) Date Value 03/27/2022 3.66 (L) Hemoglobin (g/dL) Date Value 03/27/2022 10.9 (L) Hematocrit (%) Date Value 03/27/2022 31.9 (L) MCV (fL) Date Value 03/27/2022 87.2 MCH (pg) Date Value 03/27/2022 29.8 MCHC (g/dL) Date Value 03/27/2022 34.2 RDW-CV (%) Date Value 03/27/2022 13.9 Platelet Count (k/uL) Date Value 03/27/2022 327 MPV (fL) Date Value 03/27/2022 9.8 Glucose (mg/dL) Date Value 03/27/2022 123 (H) BUN (mg/dL) Date Value 03/27/2022 9 Creatinine (mg/dL) Date Value 03/27/2022 0.58 Sodium (mmol/L) Date Value 03/27/2022 132 (L) Potassium (mmol/L) Date Value 03/27/2022 3.7 Chloride (mmol/L) Date Value 03/27/2022 100 CO2 (mmol/L) Date Value 03/27/2022 22 Protein, Total (g/dL) Date Value 03/27/2022 6.9 Albumin (g/dL) Date Value 03/27/2022 3.7 (L) Calcium, Total (mg/dL) Date Value 03/27/2022 9.9 Alkaline Phosphatase (U/L) Date Value 03/27/2022 96 Bilirubin, Total (mg/dL) Date Value 03/27/2022 <0.2 (L) AST (U/L) Date Value 03/27/2022 12 (L) ALT (U/L) Date Value 03/27/2022 9 DIAGNOSIS: (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, D50.9) Iron deficiency anemia of PAST MEDICAL HISTORY Diagnosis Date Antiphospholipid antibody syndrome (HCC) Asthma Bilateral ovarian cysts Blood in stool Clear vaginal discharge Complex cyst of right ovary Dysuria during Fluid imbalance History of miscarriage, currently Hypercoagulable state (HCC) Iron deficiency anemia of 03/27/2022 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 Kidney stones early 20's Missed menses Nausea and vomiting Rectal bleeding PAST SURGICAL HISTORY Procedure Laterality Date BREAST BIOPSY HX Negative EXTRACTION, ERUPTED TOOTH OR EXPOSED ROOT (ELEVATION AND/OR FORCEPS REMOVAL) Social History Tobacco Use Smoking status: Never Smokeless tobacco: Never Vaping Use Vaping Use: Never used Substance Use Topics Alcohol use: No Drug use: No FAMILY HISTORY Adopted: Yes Problem Relation Age of Onset Stroke Father Diabetes Father Type 2 Multiple Sclerosis Maternal Aunt Heart Maternal Grandfather other (Other) Daughter sacral dimple, frbrous tisse of tail bone other (Other) Mother Spinabifida Diabetes Sister type 2 Diabetes Paternal Grandmother type 2 Diabetes Paternal Grandfather type 2 I spent a total of 30 minutes on the date of the service which included preparing to see the patient, [id number] patient care, completing clinical documentation, obtaining and/or reviewing separately obtained history, performing a medically appropriate examination, counseling and educating the pat ient/family/caregiver, ordering medications, tests, or procedures, independently interpreting results (not separately reported), and care coordination (not separately reported). Salvador Calix MD, CPE Hematology and Oncology Services Provided at: [facility], [place], [place] CC: MD Wilton Day, [address] [place] [address] Humaira Gaviria MD [address] [place] [id number] MD Cosmo Kingston MD Michael Blank, MD documented in this encounterCleveland [id number] Instructions* Patient Instructions* Salvador Calix MD - 01/30/2022 12:[address] Hamlin's expertise and will prescribe Lovenox - patient prefers 40 mg (rather than rec 80mg) Will recheck antiphospholipid antibodies as ordered and every 6 months. RTC in 8 weeks - labs same day. documented in this encounterOhio[facility]10-03-2022 History of Present illness Narrative* Salvador Calix MD - 01/30/2022 11:59 AM EDT Images from the original note were not included. NAME: Madhu Rendon [facility] NO.: [id number] DATE OF SERVICE: January 30, 2022 Some elements in this clinic note that are critical to medical decision making have been carefully reviewed and included from a prior clinic note dated: August 01, 2021 Additional Clinicians involved in Madhu Rendon's care: Drs. Herrmann, Jorge Monge, Humaira Gaviria, CC: hypercoag state. ASSESSMENT: 36 year old woman 25 weeks presents with a prior history of CVA in 2016 and anantiphospholipid antibody that was identified much later in 2018. These were found in [place], [place]. I don't have access to these results. Patient believes that she has anticardiolipin antibodies but wasn't sure. She has been on Plavix for approximately year and a half and had bled heavily on aspirin preceding this. She currently has no evidence of active thrombosis. We had discussed the potential etiology of antiphospholipid antibodies in the context of her symptoms which preceded her diagnosis by approximately2 years presenting as a CVA. At some point in time she had a vW disease workup but we don't have that specific data from prior workup. After discussion with her neurologist, Dr. Jorge Monge, we put her on prophylactic dose Lovenox throughout her prior but is now again and at 25 weeks. Is having difficulty with associated diabetes. Recalls having had a target-like rash shortly before presenting to [place] in 2016 with headaches and was diagnosed with a CVA. - She saw Dr. Baugh but no relevant conclusion was made. She remains on Lovenox - her youngest son is 24 mo now and she is at 25 weeks PLAN: Appreciate Dr. Hamlin's expertise and will prescribe Lovenox - patient prefers 40 mg (rather than rec 80mg) Will recheck antiphospholipid antibodies as ordered and every 6 months. RTC in 8 weeks - labs same day. HPI: Updated Visit, January 30, 2022: Madhu returns at 25 weeks of her current . She remains on prophylactic dose Lovenox. Appreciate my colleagues opinion regarding her anticoagulation and she found Dr. Hamlin's opinion very helpful as well. We reviewed the recommendations together, but we will follow her preference to treatment. She prefers to stay on the 40 mg dose daily and will monitor for hemorrhage as she has done in the past. She is having trouble with hyperglycemia in and also has become mildly anemic although, this is most likely due to plasma expansion. I have checked iron studies and those are pending. She is otherwise getting along very well. 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 In any case I do think thatthis is a risk factor for her stroke as well as for recurrent loss. The fact that she hashad a stroke and also had 1 late loss classifies her as having the antiphospholipid syndrome. Though she has done well on at least one while on Lovenox the standard of care would be to have her on both Lovenox and low-dose aspirin. She is somewhat hesitant to take aspirin as she hashad some intolerance before, but I encouraged her to consider 81 mg of daily aspirin. While 1 can make an argument for full dose anticoagulation during because of her previous stroke, giventhat she is also on aspirin I would recommend that we simply at this point increase her Lovenox dose to 80 mg daily. However in the period I would increase to a therapeutic range of at least 80 mg twice daily. She has not had antiphospholipid antibody testing since June 2019, and I would recommend repeatingan antibody panel at this time. I have put in a standing order for lupus anticoagulant testing. (Earl, 08/2021) Updated Visit, August 01, 2021: Doing well overall and has resolved some of her symptoms. No additional stroke like symptoms. Stillbreastfeeding and will maintain lovenox until she is finished. Has recurring UTI with pseudomonas - having mild symptoms now. Hair is dry and has patches Updated Visit, December 23, 2020: Father at the End of September 2020 so she's had a rough few months. He was 73 and had a colorectal cancer. Mother also had colon cancer and at age 69. Both lived in [facility] but she was adopted. She was not able to see ID in October and will be seeing Dr. Baugh next week. Also will have her see Dr. Hamlin for her clotting disorder and make any other recommendations to optimize her treatment. Updated Visit, October 08, 2020: Telephone only Received call from pt stating she was seen in [facility] for numbness in her chest, throat, and extremities, and sob which has been worsening over the last week. We arranged a telephone visit for her chanw questions with me. Madhu Rendon is a 34 year old female seen for Hypercoagulable state and recent concerns and symptoms that required her to be seen at [facility]. She went to the ER with Gradual worsening of breathing after progressive tingling of fingers and legs. She currently remains very fatigued even though she is sleeping well. Now recalls that before her stroke she remembers having a bull's eye rash and was seen with severe headaches in [facility] was found to have a stroke in 2016. Updated Visit, May 05, 2020: Madhu is 34 years old and returns for routine check in for chronic anticoagulation of her hypercoagulable disorder that presented with a CVA approximately 2018. Full work-up has revealed some low-level anticardiolipin antibodies in an indeterminate range, but given her's symptoms and thrombotic event her neurologist and I feel that it be appropriate to at least put her on prophylactic dosing of anticoagulation. She is currently on Lovenox because she is still breast feeding her 4-month-old son. Recently she reports that she had numbness preceding a root canal and was sent to [facility] for MRI which was negative but non-contrasted. She like her chemistries checked because she's had hyponatremia before. She also complains that even though she is still breast feeding, she is still gaining weight hasn'tbeen eating healthy as food. She also has started vaginal spotting and has started Her menses but is not heavy at this time. Fatigue is pronounced but isn't anemic today. All labs reviewed. Updated Visit, February 02, 2020: Madhu is 34 yo and delivered a healthy baby boy who is now 3 weeks old. She bled after and was downto 8.5 but didn't need transfusions. She hemorrhaged with each of her prior 2 pregnancies. Daughteris Autistic 51/2. Her son who is 12 had Tics when he was 6. Discussed briefly the risks of further with requirements of anticoagulation. Labs appear to be stable Is possibly getting Mirena but is still contemplating future . I asked her to discuss her risk with Dr. Herrmann. She will need to be on lovenox until she stops breast feeding. After this remains the question of resuming plavix or consider DOAC. Initial Visit, May 19, 2019: Madhu Rendon presents today at the request of Dr. Herrmann for oncology evaluation. She is a 33 year old female who is currently on Plavix for CVA prophylaxis and is been referred for opinion regarding changing over to Lovenox due to her underlying findings of antiphospholipid antibodies. Her history goes back to January 2016 in [facility] where she had persisting headaches and slurred speech followed by lower extremity weakness. This took a few months to resolve and she is back to her normal state of being but some point in time during her her next she was seen by Dr. Humera Hyde in [place] as well and was found to have an antiphospholipid antibody. I believe this is after a spontaneous . She had a bleeding on aspirin but has been stable on Plavix. In the absence of an active measurable thrombosis she was not given full dose attic regulation. The thinking that perhaps the CVA symptoms were mediated by a transient ischemic event precipitated by hormone therapy. Nevertheless now that she has been identified antiphospholipid antibody which she believes to be anticardiolipin antibody she will require some form of prophylaxis. REVIEW OF SYSTEMS Per HPI and otherwise negative by full review of organ systems. ECOG PERFORMANCE STATUS: 0 PHYSICAL EXAMINATION: Vitals: BP 122/61 Pulse 88 Temp (Src) 97.2 (Temporal) Resp 16 Ht 5' 6.024 (1.68m) Wt 230lb 3.2 oz (104.4kg) SpO2 99% LMP 04/08/2019 BMI 37.13 kg/(m^2). Body surface area is 2.21 meters squared. Exam limited to gross visualization where appropriate due to COVID-19. Gen.: This is an age-appropriate patient in no acute distress. Head: Appears atraumatic with no visible lesions. Eyes: Pupils equally round and reactive to light, extraocular muscles are intact. Neck: Supple. Mouth: Mucous membranes appeared to be moist. Respiratory: Appears to be respiring comfortably. Neurologic: Nonfocal to gross visualization. Alert and oriented 3. Psychiatric: No evidence of inappropriate anxiety or depression. Skin: Visible areas of skin without rash, lesions, wounds or petechiae. Gravid abdomen. ALLERGIES: ALLERGIES Allergen Reactions Ciprofloxacin Other: See Comments, Unknown Dizziness, weakness sweating Ciprofloxacin-Fluoc* Other: See Comments Dizziness, weakness sweating Lactose GI Upset Diarrhea Penicillins Unknown Seasonal Allergies GI Upset, Other: See Comments Lactalbumin Unknown, GI Upset Crampy and gassy Milk Other: See Comments Crampy and gassy Diarrhea Other reaction(s): GI Upset Crampy and gassy Milk Containing Pro* Other: See Comments Crampy and gassy Diarrhea Other reaction(s): GI Upset Crampy and gassy MEDICATIONS: levothyroxine (SYNTHROID) 25 mcg tablet Take 25 mcg by mouth. enoxaparin (LOVENOX) 40 mg/0.4 mL Inject 0.4 mL subcutaneously every 24 hours. multivitamin tablet Take 1 tablet by mouth once daily. LABORATORY VALUES: WBC (k/uL) Date Value 01/30/2022 8.36 RBC (m/uL) Date Value 01/30/2022 3.54 (L) Hemoglobin (g/dL) Date Value 01/30/2022 10.8 (L) Hematocrit (%) Date Value 01/30/2022 31.5 (L) MCV (fL) Date Value 01/30/2022 89.0 MCH (pg) Date Value 01/30/2022 30.5 MCHC (g/dL) Date Value 01/30/2022 34.3 RDW-CV (%) Date Value 01/30/2022 13.4 Platelet Count (k/uL) Date Value 01/30/2022 330 MPV (fL) Date Value 01/30/2022 9.7 Glucose (mg/dL) Date Value 01/30/2022 78 BUN (mg/dL) Date Value 01/30/2022 8 Creatinine (mg/dL) Date Value 01/30/2022 0.53 (L) Sodium (mmol/L) Date Value 01/30/2022 128 (L) Potassium (mmol/L) Date Value 01/30/2022 3.7 Chloride (mmol/L) Date Value 01/30/2022 98 CO2 (mmol/L) Date Value 01/30/2022 19 (L) Protein, Total (g/dL) Date Value 01/30/2022 6.4 Albumin (g/dL) Date Value 01/30/2022 3.8 (L) Calcium, Total (mg/dL) Date Value 01/30/2022 9.3 Alkaline Phosphatase (U/L) Date Value 01/30/2022 54 Bilirubin, Total (mg/dL) Date Value 01/30/2022 <0.2 (L) AST (U/L) Date Value 01/30/2022 12 (L) ALT (U/L) Date Value 01/30/2022 11 DIAGNOSIS: (D68.59) Primary hypercoagulable state (HCC) (primary encounter diagnosis) Plan: CBC + DIFF, COMP METABOLIC PANEL (I69.328) CVA, old, speech/language deficit Plan: CBC + DIFF, COMP METABOLIC PANEL (D68.61) Antiphospholipid antibody syndrome (HCC) Plan: CBC + DIFF, COMP METABOLIC PANEL (D64.9) Anemia, unspecified type Plan: IRON + TIBC, FERRITIN BLD PAST MEDICAL HISTORY Diagnosis Date Antiphospholipid antibody syndrome (HCC) Asthma Bilateral ovarian cysts Blood in stool Clear vaginal discharge Complex cyst of right ovary Dysuria during Fluid imbalance History of miscarriage, currently Hypercoagulable state (HCC) Kidney stones early 20's Missed menses Nausea and vomiting Rectal bleeding PAST SURGICAL HISTORY Procedure Laterality Date BREAST BIOPSY HX Negative EXTRACTION, ERUPTED TOOTH OR EXPOSED ROOT (ELEVATION AND/OR FORCEPS REMOVAL) Social History Tobacco Use Smoking status: Never Smokeless tobacco: Never Vaping Use Vaping Use: Never used Substance Use Topics Alcohol use: No Drug use: No FAMILY HISTORY Adopted: Yes Problem Relation Age of Onset Stroke Father Diabetes Father Type 2 Multiple Sclerosis Maternal Aunt Heart Maternal Grandfather other (Other) Daughter sacral dimple, frbrous tisse of tail bone other (Other) Mother Spinabifida Diabetes Sister type 2 Diabetes Paternal Grandmother type 2 Diabetes Paternal Grandfather type 2 I spent a total of 35 minutes on the date of the service which included preparing to see the patient, [id number] patient care, completing clinical documentation, obtaining and/or reviewing separately obtained history, performing a medically appropriate examination, counseling and educating the pat ient/family/caregiver, and ordering medications, tests, or procedures. Salvador Calix MD, [place], [place] CC: MD Chalino DayAsc[facility], [address] [place] [address] Humaira Gaviria MD [address] [place] [id number] MD Cosmo Kingston MD Michael Blank, MD documented in this encounterOhiohealth [facility]10-03-2022 Nurse Note* Serina Dawson MA - 01/30/2022 11:55 AM EDT Patient states she may be diagnosed with gestational diabetes, she was from 215 to 52 a couple hours later after eating wheat cereal. She sees OB tomorrow. Serina Dawson MA documented in this encounterOhiohealth Nelsonville [facility]09-02-2022 Miscellaneous Notes* Telephone Encounter - Tonja Pope RN - 12/30/2021 10:15 AM EDT Call received from Madhu requesting refill of Lovenox 40 mg to be sent to [facility] in [place]. FELY: Please review and approve if you agree. Tonja Chery, RN documented in this encounterOhiohealth [facility]ville [facility] Center06-13-2022 Miscellaneous Notes* Telephone Encounter - Meme Easton RN - 10/10/2021 12:15 PM EDT Received call from pt requesting refill of Lovenox 40 mg to be sent to [facility] in [place]. FELY: Pt also states she had one episode of blood in her stool which was dripping blood which concerned her. She is not ready to move to 80 mg of Lovenox at this time. Order pending. Please review and sign if agreeable. Meme Easton RN documented in this encounterOhiohealth [facility]ville [facility] Center05-10-2022 Miscellaneous Notes* Telephone Encounter - Salvador Calix MD - 09/06/2021 8:29 PM EDT Rigt - Dr. Hamlin's message was a little different than his clinic note. His Staff message had been for 80 bid. In any case I will send the 40 mg daily.. * Telephone Encounter - Meme Easton RN - 09/06/2021 3:03 PM EDT Received call from pt stating she received script for Lovenox 80 mg but its for twice a day and should only be for once a day until her period per Dr Elliott. Pt also would like new script of Lovenox 40 mg daily as she does not wish to begin 80 mg daily dose until her second trimester. FELY: Script for 40 mg dose pending, please review and sign if agreeable. Meme Easton RN documented in this encounterOhiohealth [facility] Center05-09-2022 Miscellaneous Notes* Telephone Encounter - Meme Easton RN - 09/05/2021 11:07 AM EDT Call placed to pt. No answer. Left message informing pt of Dr Luna's response and to return call if any questions/concerns. Meme Easton RN * Telephone Encounter - Salvador Calix MD - 09/02/2021 4:07 PM EDT Stay on the same through 36 weeks then will have to stop * Telephone Encounter - Meme Easton RN - 09/02/2021 2:08 PM EDT Received call from pt stating she is now and her OB wanted her to check in with Dr Luna to see if any changes need to be made regarding her Lovenox. She is currently on 40 mg. FELY: Please advise. Meme Easton RN documented in this encounterOhiohealth [facility]ville [facility] Center04-25-2022 Miscellaneous Notes* Telephone Encounter - Meme Easton RN - 08/22/2021 2:07 PM EDT Informed pt of Dr Luna's response. Answered all pt's questions. Pt verbalized understanding and denies further needs at this time. Meme Easton RN * Telephone Encounter - Salvador Calix MD - 08/22/2021 12:31 PM EDT She should get checked for COVID-19 Unlikely related to her underlying issues * Telephone Encounter - Meme Easton RN - 08/22/2021 10:57 AM EDT Received call from pt stating she is not feeling well. Pt had blood drawn done at her local lab andher Na+ is 130, which she states is not that abnormal for her but she is having hot flashes mixed with periods of being very cold and would like to know if Dr Luna thinks this could be d/t her blood thinners or her condition. FELY: Thoughts? Meme Easton RN documented in this encounterOhiohealth Nelsonville [facility] Center04-22-2022 Hospital Discharge instructions Patient Education 08/19/2021 13:02:22 Urodynamic Testing Urodynamic Testing What is urodynamic testing? Urodynamic tests are done to determine how well your lower urinary tract is working. The lower urinary tract includes your bladder and the part of your body that drains urine from the bladder (urethra). When your kidneys filter your blood, urine is stored in your bladder until you feel the urge to urinate. Urination requires coordination between the nerves and muscles of your bladder and urethra. When your lower urinary tract is working well, you should be able to: Start urinating when your bladder is full. Empty your bladder completely. Control the flow of your urine. Why do I need urodynamic testing? You may need urodynamic testing to help find the cause of any of these problems: Leaking urine (incontinence). Problems starting or stopping your urine flow. Frequent or painful urination. Frequent urinary tract infections. Being unable to empty your bladder completely. Having strong urges to pass urine (urgency). Having a weak flow of urine. How do I prepare for the tests? Ask your health care provider about changing or stopping your regular medicines. This is especiallyimportant if you are taking diabetes medicines or blood thinners. You may be asked to avoid urinating before coming to the test so that you arrive with a full bladder. Tell a health care provider about: ?Any allergies you have. ?All medicines you are taking, including vitamins, herbs, eye drops, creams, and kzhu-kxi-akzehce medicines. ?Whether you are or may be . What are the risks of this testing? Generally, these tests are safe. However, some of the tests have risks, including: Discomfort. Frequent urge to urinate. Bleeding. Infection. Allergic reactions to medicines or dyes (contrast material). How is urodynamic testing done? You may have various urodynamic tests. The tests may be done separately or may all be done during one testing visit. You may be given an antibiotic medicine before or after testing to help prevent infection. The types of tests that may be done include: Uroflowmetry This test measures how much urine you pass and how long it takes to pass. You will urinate into a certain type of toilet or device (flowmeter). The device will measure the volume and the time of your urine flow. These measurements will be sent to a computer that creates a graph of your urine flow. Postvoid residual measurement This test measures how much urine is left in your bladder after you urinate. The test may be done with ultrasound. In this method, sound waves and a computer will be used to create an image of your bladder. The test can also be done by inserting a thin, flexible tube (catheter) into your bladder after youurinate. The remaining urine will be removed through the catheter so it can be measured. Remaining urine will be measured in milliliters (mL). If you have more than 100 mL left in your bladder after you urinate, your bladder is not emptying as it should. Cystometric testing This test uses a type of bladder catheter that can measure pressure. You may be given a medicine to numb the area (local anesthetic). The area around the opening of your urethra will be cleaned. A urinary catheter will be passed through your urethra into your bladder and used to empty your bladder completely. Then a measuring catheter will be placed, and your bladder will be filled with warm, germ-free (sterile) water. Pressure measurements will be taken: ?As your bladder fills. ?When you feel the need to urinate. ?As your bladder is emptied. You may be asked to cough or bear down to check for leakage. In some cases, your bladder may be filled with a material that shows up on X- rays (contrast material) so that X-ray pictures can be taken during the test. Electromyogram This test measures the electrical activity of the nerves and muscles of your bladder and the opening of your urethra. Sticky patches (electrodes) will be placed near your rectum and urethra to measure electrical activity. The measurements will show how well your nerves are communicating with your muscles. What happens after the testing? You should be able to go home right away and do your usual activities. You may be told to drink a glass of water every 30 minutes for the first 2 hours after testing. Taking a warm bath or using warm, wet cloths (warm compresses) may relieve any discomfort near yoururethra. Contact your health care provider if you have: ?Pain. ?Blood in your urine. ?Chills. ?Fever. What do the results mean? Talk with your health care provider about what your results mean. Some common causes for abnormal results from urodynamic tests include: Enlarged prostate in men. Overactive bladder. Urinary tract infection. Nervous system diseases. Spinal cord damage. Questions to ask your health care provider Ask your health care provider, or the department that is doing the test: When will my results be ready? How will I get my results? What are my treatment options? What other tests do I need? What are my next steps? Summary Urodynamic tests are done to determine how well your lower urinary tract is working. The lower urinary tract includes your bladder and urethra. You may need urodynamic testing to help find the cause of various problems with urination, such as leaking urine (incontinence) or problems starting or stopping your urine flow. You may have various urodynamic tests. The tests may be done separately or may all be done during one testing visit. Talk with your health care provider about what your results mean. Contact your health care provider if you have pain, chills, a fever, or blood in your urine. This information is not intended to replace advice given to you by your health care provider. Make sure you discuss any questions you have with your health care provider. Document Released: 02/11/2008 Document Revised: 08/05/2019 Document Reviewed: 02/18/2018 [employer] Patient Education 2020 [employer] 08/19/2021 13:02:21 Dysuria Dysuria Dysuria is pain or discomfort while urinating. The pain or discomfort may be felt in the part of your body that drains urine from the bladder (urethra) or in the surrounding tissue of the genitals. The pain may also be felt in the groin area, lower abdomen, or lower back. You may have to urinate frequently or have the sudden feeling that you have to urinate (urgency). Dysuria can affect both men and women, but it is more common in women. Dysuria can be caused by many different things, including: Urinary tract infection. Kidney stones or bladder stones. Certain sexually transmitted infections (STIs), such as chlamydia. Dehydration. Inflammation of the tissues of the vagina. Use of certain medicines. Use of certain soaps or scented products that cause irritation. Follow these instructions at home: General instructions Watch your condition for any changes. Urinate often. Avoid holding urine for long periods of time. After a bowel movement or urination, women should cleanse from front to back, using each tissue only once. Urinate after sexual intercourse. Keep all follow-up visits as told by your health care provider. This is important. If you had any tests done to find the cause of dysuria, it is up to you to get your test results. Ask your health care provider, or the department that is doing the test, when your results will be ready. Eating and drinking Drink enough fluid to keep your urine pale yellow. Avoid caffeine, tea, and alcohol. They can irritate the bladder and make dysuria worse. In men, alcohol may irritate the prostate. Medicines Take sfwy-qac-dwzeufz and prescription medicines only as told by your health care provider. If you were prescribed an antibiotic medicine, take it as told by your health care provider. Do notstop taking the antibiotic even if you start to feel better. Contact a health care provider if: You have a fever. You develop pain in your back or sides. You have nausea or vomiting. You have blood in your urine. You are not urinating as often as you usually do. Get help right away if: Your pain is severe and not relieved with medicines. You cannot eat or drink without vomiting. You are confused. You have a rapid heartbeat while at rest. You have shaking or chills. You feel extremely weak. Summary Dysuria is pain or discomfort while urinating. Many different conditions can lead to dysuria. If you have dysuria, you may have to urinate frequently or have the sudden feeling that you have tourinate (urgency). Watch your condition for any changes. Keep all follow-up visits as told by your health care provider. Make sure that you urinate often and drink enough fluid to keep your urine pale yellow. This information is not intended to replace advice given to you by your health care provider. Make sure you discuss any questions you have with your health care provider. Document Released: 01/12/2005 Document Revised: 03/29/2018 Document Reviewed: 01/31/2018 [employer] Patient Education 2020 [employer]. 08/19/2021 13:02:17 Budget-Friendly Healthy Eating Budget-Friendly Healthy Eating There are many ways to save money at the grocery store and continue to eat healthy. You can be successful if you: Plan meals according to your budget. Make a grocery list and only purchase food according to your grocery list. Prepare food yourself. What are tips for following this plan? Reading food labels Compare food labels between brand name foods and the store brand. Often the nutritional value is the same, but the store brand is lower cost. Look for products that do not have added sugar, fat, or salt (sodium). These often cost the same but are healthier for you. Products may be labeled as: ?Sugar-free. ?Nonfat. ?Low-fat. ?Sodium-free. ?Low-sodium. Look for lean ground beef labeled as at least 92% lean and 8% fat. Shopping Buy only the items on your grocery list and go only to the areas of the store that have the items on your list. Use coupons only for foods and brands you normally buy. Avoid buying items you wouldn't normally buy simply because they are on sale. Check online and in newspapers for weekly deals. Buy healthy items from the bulk bins when available, such as herbs, spices, flour, pasta, nuts, anddried fruit. Buy fruits and vegetables that are in season. Prices are usually lower on in- season produce. Look at the unit rosas on the rosas tag. Use it to compare different brands and sizes to find out which item is the best deal. Choose healthy items that are often low-cost, such as carrots, potatoes, apples, bananas, and oranges. Dried or canned beans are a low-cost protein source. Buy in bulk and freeze extra food. Items you can buy in bulk include meats, fish, poultry, frozen fruits, and frozen vegetables. Avoid buying lpihw-kx-nop foods, such as pre-cut fruits and vegetables and pre-made salads. If possible, shop around to discover where you can find the best prices. Consider other retailers such as dollar stores, larger wholesale stores, local fruit and vegetable [employer], and View and Chew markets. Do not shop when you are hungry. If you shop while hungry, it may be hard to stick to your list andbudget. Resist impulse buying. Use your grocery list as your official plan for the week. Buy a variety of vegetables and fruits by purchasing fresh, frozen, and canned items. Look at the top and bottom shelves for deals. Foods at eye level (eye level of an adult or child) are usually more expensive. Be efficient with your time when shopping. The more time you spend at the store, the more money youare likely to spend. To save money when choosing more expensive foods like meats and dairy: ?Choose cheaper cuts of meat, such as bone-in chicken thighs and drumsticks instead of skinless andboneless chicken. When you are ready to prepare the chicken, you can remove the skin yourself to make it healthier. ?Choose lean meats like chicken or turkey instead of beef. ?Choose canned seafood, such as tuna, salmon, or sardines. ?Buy eggs as a low-cost source of protein. ?Buy dried beans and peas, such as lentils, split peas, or kidney beans instead of meats. Dried beans and peas are a good alternative source of protein. ?Buy the larger tubs of yogurt instead of individual-sized containers. Choose water instead of sodas and other sweetened beverages. Avoid buying chips, cookies, and other junk food. These items are usually expensive and not healthy. Cooking Make extra food and freeze the extras in meal-sized containers or in individual portions for fast meals and snacks. Pre-cook on days when you have extra time to prepare meals in advance. You can keep these meals in the fridge or freezer and reheat for a quick meal. When you come home from the grocery store, wash, peel, and cut fruits and vegetables so they are ready to use and eat. This will help reduce food waste. Meal planning Do not eat out or get fast food. Prepare food at home. Make a grocery list and make sure to bring it with you to the store. If you have a smart phone, youcould use your phone to create your shopping list. Plan meals and snacks according to a grocery list and budget you create. Use leftovers in your meal plan for the week. Look for recipes where you can cook once and make enough food for two meals. Include budget-friendly meals like stews, casseroles, and stir-clarke dishes. Try some meatless meals or try no cook meals like salads. Make sure that half your plate is filled with fruits or vegetables. Choose from fresh, frozen, or canned fruits and vegetables. If eating canned, remember to rinse them before eating. This will remove any excess salt added for packaging. Summary Eating healthy on a budget is possible if you plan your meals according to your budget, purchase according to your budget and grocery list, and prepare food yourself. Tips for buying more food on a limited budget include buying generic brands, using coupons only forfoods you normally buy, and buying healthy items from the bulk bins when available. Tips for buying cheaper food to replace expensive food include choosing cheaper, lean cuts of meat,and buying dried beans and peas. This information is not intended to replace advice given to you by your health care provider. Make sure you discuss any questions you have with your health care provider. Document Released: 12/18/2014 Document Revised: 04/17/2018 Document Reviewed: 04/17/2018 [employer] Patient Education 2020 [employer]. 08/19/2021 13:02:15 BMI for Adults BMI for Adults Body mass index (BMI) is a number that is calculated from a person's weight and height. BMI may help to estimate how much of a person's weight is composed of fat. BMI can help identify those who may be at higher risk for certain medical problems. How is BMI used with adults? BMI is used as a screening tool to identify possible weight problems. It is used to check whether aperson is obese, overweight, healthy weight, or underweight. How is BMI calculated? BMI measures your weight and compares it to your height. This can be done either in [place] or metric measurements. Note that charts are available to help you find your BMI quickly and easily without having to do these calculations yourself. To calculate your BMI in [place] measurements, your health care provider will: 1.Measure your weight in pounds (lb). 2.Multiply the number of pounds by 703. For example, for a person who weighs 180 lb, multiply that number by 703, which equals 126,540. 3.Measure your height in inches (in). Then multiply that number by itself to get a measurement called inches squared. For example, for a person who is 70 in tall, the inches squared measurement is 70 in x 70 in, which equals 4900 inches squared. 4.Divide the total from Step 2 (number of lb x 703) by the total from Step 3 (inches squared): 126,540 4900 = 25.8. This is your BMI. To calculate your BMI in metric measurements, your health care provider will: 1.Measure your weight in kilograms (kg). 2.Measure your height in meters (m). Then multiply that number by itself to get a measurement called meters squared. For example, for a person who is 1.75 m tall, the meters squared measurement is 1.75 m x 1.75 m, which is equal to 3.1 meters squared. 3.Divide the number of kilograms (your weight) by the meters squared number. In this example: 70 3.1 = 22.6. This is your BMI. How is BMI interpreted? To interpret your results, your health care provider will use BMI charts to identify whether you are underweight, normal weight, overweight, or obese. The following guidelines will be used: Underweight: BMI less than 18.5. Normal weight: BMI between 18.5 and 24.9. Overweight: BMI between 25 and 29.9. Obese: BMI of 30 and above. Please note: Weight includes both fat and muscle, so someone with a muscular build, such as an athlete, may havea BMI that is higher than 24.9. In cases like these, BMI is not an accurate measure of body fat. To determine if excess body fat is the cause of a BMI of 25 or higher, further assessments may needto be done by a health care provider. BMI is usually interpreted in the same way for men and women. Why is BMI a useful tool? BMI is useful in two ways: Identifying a weight problem that may be related to a medical condition, or that may increase the risk for medical problems. Promoting lifestyle and diet changes in order to reach a healthy weight. Summary Body mass index (BMI) is a number that is calculated from a person's weight and height. BMI may help to estimate how much of a person's weight is composed of fat. BMI can help identify those who may be at higher risk for certain medical problems. BMI can be measured using Nauruan measurements or metric measurements. To interpret your results, your health care provider will use BMI charts to identify whether you are underweight, normal weight, overweight, or obese. This information is not intended to replace advice given to you by your health care provider. Make sure you discuss any questions you have with your health care provider. Document Released: 12/26/2004 Document Revised: 03/29/2018 Document Reviewed: 02/27/2018 [employer] Patient Education 2020 [employer]. 08/19/2021 13:02:11 Paresthesia Paresthesia Paresthesia is an abnormal burning or prickling sensation. It is usually felt in the hands, arms, legs, or feet. However, it may occur in any part of the body. Usually, paresthesia is not painful. Itmay feel like: Tingling or numbness. Buzzing. Itching. Paresthesia may occur without any clear cause, or it may be caused by: Breathing too quickly (hyperventilation). Pressure on a nerve. An underlying medical condition. Side effects of a medication. Nutritional deficiencies. Exposure to toxic chemicals. Most people experience temporary (transient) paresthesia at some time in their lives. For some people, it may be long-lasting (chronic) because of an underlying medical condition. If you have paresthesia that lasts a long time, you may need to be evaluated by your health care provider. Follow these instructions at home: Alcohol use Do not drink alcohol if: ?Your health care provider tells you not to drink. ?You are , may be , or are planning to become . If you drink alcohol: ?Limit how much you use to: ?0 1 drink a day for women. ?0 2 drinks a day for men. ?Be aware of how much alcohol is in your drink. In the [place] one drink equals one 12 oz bottle of beer (355 mL), one 5 oz glass of wine (148 mL), or one 1 oz glass of hard liquor (44 mL). Nutrition Eat a healthy diet. This includes: ?Eating foods that are high in fiber, such as fresh fruits and vegetables, whole grains, and beans. ?Limiting foods that are high in fat and processed sugars, such as fried or sweet foods. General instructions Take [id number] and prescription medicines only as told by your health care provider. Do not use any products that contain nicotine or tobacco, such as cigarettes and e-cigarettes. These can keep blood from reaching damaged nerves. If you need help quitting, ask your health care provider. If you have diabetes, work closely with your health care provider to keep your blood sugar under control. If you have numbness in your feet: ?Check every day for signs of injury or infection. Watch for redness, warmth, and swelling. ?Wear padded socks and comfortable shoes. These help protect your feet. Keep all follow-up visits as told by your health care provider. This is important. Contact a health care provider if you: Have paresthesia that gets worse or does not go away. Have a burning or prickling feeling that gets worse when you walk. Have pain, cramps, or dizziness. Develop a rash. Get help right away if you: Feel weak. Have trouble walking or moving. Have problems with speech, understanding, or vision. Feel confused. Cannot control your bladder or bowel movements. Have numbness after an injury. Develop new weakness in an arm or leg. Faint. Summary Paresthesia is an abnormal burning or prickling sensation that is usually felt in the hands, arms, legs, or feet. It may also occur in other parts of the body. Paresthesia may occur without any clear cause, or it may be caused by breathing too quickly (hyperventilation), pressure on a nerve, an underlying medical condition, side effects of a medication, nutritional deficiencies, or exposure to toxic chemicals. If you have paresthesia that lasts a long time, you may need to be evaluated by your health care provider. This information is not intended to replace advice given to you by your health care provider. Make sure you discuss any questions you have with your health care provider. Document Released: 04/06/2003 Document Revised: 05/12/2019 Document Reviewed: 04/25/2018 Elsevier Patient Education 2020 [employer] Follow Up Care 08/19/2021 09:17:52 With:PRAVEEN RESENDEZ FAAFP, CHRIS Perez, PED Address: [address], [place] [address]- When:1 to 2 weeks [facility] 04-22-2022 Evaluation + Plan note Future Scheduled Tests Radiology* XR Spine Lumbosacral Minimum 4 Views 08/19/21 [facility]04-07[facility]2022 Miscellaneous Notes* Telephone Encounter - Harjit Semon - 08/04/2021 3:36 PM EDT Patient is scheduled for 09/[address] Elliott. Harjit Haskins * Telephone Encounter - Harjit Haskins - 08/01/2021 1:05 PM EDT Sent Email to [facility] to refer patient back to Dr. Cosmo Elliott Dx: Primary hypercoagulable state (HCC) [facility]jit Haskins [facility]* Ebony Redding Ma - 08/01/2021 12:48 PM EDT UA ran as ordered. Ebony Redding Ma documented [facility] Future Appointments Appointment Date:11/08/2021 12:40:00 PM Scheduled Provider:Evans CASAS DO, FAAFP Location:[facility] Appointment Type:FM Open Future Scheduled Tests Radiology* XR Spine Lumbosacral Minimum 4 Views 08/19/21 [facility] Evaluation + Plan note Future Appointments Appointment Date:11/08/2021 12:40:00 PM Scheduled Provider:Evans CASAS DO, FAAFP Location:[facility] Appointment Type: Open Diagnostic Tests Pending * Urine Culture 08/19/21 Future Scheduled Tests Radiology* XR Spine Lumbosacral Minimum 4 Views 08[facility]19/21 [facility]ments Appointment Date:09/21/2022 10:00:00 AM Scheduled Provider:Evans CASAS DO, FAAFP [facility]ments Appointment Date:10/20/2022 09:40:00 AM Scheduled Provider:Evans CASAS DO, FAAFP [facility] Future App[facility]ments Appointment Date:01/26/2023 10:40:00 AM Scheduled Provider:Evans CASAS DO, FAAFP Location:[facility] Appointment Type:[facility] [place] [facility] Evaluation + Plan note Future Appointments Appointment Date:04/17/2023 02:20:00 PM Scheduled Provider:Evans CASAS DO, FAAFP Location:[facility] Appointment Type:FM Open Future Scheduled Tests Laboratory* HgbA1c 02/15/23 * Thyroid Stimulating Hormone 02/15/23 * Thyroid Stimulating Hormone 01/11/23 [facility] Evaluation + Plan note Future Appointments Appointment Date:07/24/2023 01:20:00 PM Scheduled Provider:Evans CASAS DO, FAAFP Location:[facility] Appointment Type: Open Future Scheduled Tests Laboratory* HgbA1c 02/15/23 * Thyroid Stimulating Hormone 02/15/23 [facility] App[facility]ments Appointment Date:07/24/2023 01:20:00 PM Scheduled Provider:Evans CASAS DO, FAAFP Location:[facility] Appointment Type:[facility] [place] [facility] Evaluation + Plan note Future Appointments Appointment Date:12/03/2023 12:40:00 PM Scheduled Provider:Evans CASAS DO, FAAFP Location:[facility] Appointment Type:FM Open Future Scheduled Tests Laboratory* HgbA1c 08/03/23 [facility] evaluation + Plan note Future Appointments Appointment Date:12/03/2023 12:40:00 PM Scheduled Provider:Evans CASAS DO, FAAFP Location:[facility] Appointment Type:FM Open Future Scheduled Tests Laboratory* Sedimentation Rate Automated 11/09/23 * HgbA1c 08/03/23 * Amylase Level 11/09/23 * Cortisol 11/09/23 * C-Reactive Protein 11/09/23 * T3 Free 11/09/23 * Thyroid Stimulating Hormone 11/09/23 * Free T4 11/09/23 * Vitamin B12 Level 11/09/23 Radiology* MRI Brain w/o Contrast 11/09/23 * MRI Orbit Face Neck w/o contrast 11/09/23 [facility] Evaluation + Plan note Future Appointments Appointment Date:01/11/2024 08:15:00 PM Scheduled Provider: Location:.SLEEP LAB_ Appointment Type:[facility] [employer] Sleep Study PSG () Appointment Date:01/29/2024 01:20:00 PM Scheduled Provider:Evans CASAS DO, FAAFP Location:[facility] Appointment Type: Open Diagnostic Tests Pending * Cortisol 12/06/23 * T3 Free 12/06/23 Future Scheduled Tests Laboratory* HgbA1c 08/03/23 Radiology* CT Soft Tissue Neck w/ Contrast 11/12/23 [facility] Evaluation + Plan note Future Appointments Appointment Date:05/16/2024 11:40:00 AM Scheduled Provider:Evans CASAS DO, FAAFP Location:[facility] Appointment Type:FM Open Future Scheduled Tests Laboratory* HgbA1c 02/05/24 * HgbA1c 05/07/24 * HgbA1c 08/05/24 * HgbA1c 11/04/24 * HgbA1c 08/03/23 * HIV Screen 4th Generation wRfx 02/05/24 * HIV Screen 4th Generation wRfx 02/05/24 * Lipid Panel 02/05/24 Radiology* CT Soft Tissue Neck w/ Contrast 11/12/23 [facility] evaluation + Plan note Future Appointments Appointment Date:05/16/2024 11:40:00 AM Scheduled Provider:Evans CASAS DO, FAAFP Location:[facility] Appointment Type:FM Open Future Scheduled Tests Laboratory* HgbA1c 05/07/24 * HgbA1c 08/05/24 * HgbA1c 11/04/24 Radiology* CT Soft Tissue Neck w/ Contrast 11/12/23 [facility] evaluation + Plan note Future Appointments Appointment Date:05/16/2024 11:40:00 AM Scheduled Provider:Evans CASAS DO, FAAFP Location:[facility] Appointment Type:FM Open Diagnostic Tests Pending * HIV Screen 4th Generation wRfx 02/23/24 Future Scheduled Tests Laboratory* HgbA1c 05/07/24 * HgbA1c 08/05/24 * HgbA1c 11/04/24 Radiology* CT Soft Tissue Neck w/ Contrast 11/12/23 [facility] evaluation + Plan note Future Appointments Appointment Date:05/16/2024 11:40:00 AM Scheduled Provider:Evans CASAS DO, FAAFP Location:[facility] Appointment Type:FM Open Future Scheduled Tests Laboratory* HgbA1c 08/05/24 * HgbA1c 11/04/24 Radiology* CT Soft Tissue Neck w/ Contrast 11/12/23 [facility] evaluation + Plan note Future Appointments Appointment Date:05/16/2024 11:40:00 AM Scheduled Provider:Evans CASAS DO, FAAFP Location:[facility] Appointment Type:FM Open Diagnostic Tests Pending * Urine Culture 03/01/24 Future Scheduled Tests Laboratory* HgbA1c 08/05/24 * HgbA1c 11/04/24 Radiology* CT Soft Tissue Neck w/ Contrast 11/12/23 [facility] evaluation note* Diagnosis Infective urethritis- Primary Urethritis, unspecified [facility] Diagnosis Primary hypercoagulable state (HCC) Primary hypercoagulable state CVA, old, speech/language deficit Speech and language deficit, unspecified, 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 Hyposmolality and/or hyponatremia documented in this encounter [facility] note* Diagnosis Primary hypercoagulable state (HCC) Primary hypercoagulable state CVA, old, speech/language deficit Speech and language deficit, unspecified, 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 Hyposmolality and/or hyponatremia documented [facility]* Diagnosis Primary hypercoagulable state (HCC)- Primary Primary hypercoagulable state CVA, old, speech/language deficit Speech and language deficit, unspecified, late effect of cerebrovascular disease Antiphospholipid antibody syndrome (HCC) Primary hypercoagulable state Anemia, unspecified type [facility]* Diagnosis Iron deficiency anemia secondary to blood loss (chronic) Iron deficiency anemia of Anemia of mother, complicating , childbirth, or the puerperium, unspecified as to episode of care documented [facility]* 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 Iron deficiency anemia of Anemia of mother, complicating , childbirth, or the puerperium, unspecified as to episode of care [facility]* Diagnosis Primary hypercoagulable state (HCC) Primary hypercoagulable state CVA, old, speech/language deficit Speech and language deficit, unspecified, 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 Hyposmolality and/or hyponatremia documented [facility]* 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 Iron deficiency anemia of Anemia of mother, complicating , childbirth, or the puerperium, unspecified as to episode of care [facility] Diagnosis Primary hypercoagulable state (HCC) Primary hypercoagulable state CVA, old, speech/language deficit Speech and language deficit, unspecified, 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 Hyposmolality and/or hyponatremia documented [facility]* Diagnosis Primary hypercoagulable state (HCC)- Primary Primary hypercoagulable state 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, old, speech/language deficit Speech and language deficit, unspecified, late effect of cerebrovascular disease documented [facility]* Diagnosis Primary hypercoagulable state (HCC) Primary hypercoagulable state CVA, old, speech/language deficit Speech and language deficit, unspecified, 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 Hyposmolality and/or hyponatremia [facility] Primary hypercoagulable state (HCC)- Primary Primary hypercoagulable state Iron deficiency anemia of Anemia of mother, complicating , childbirth, or the puerperium, unspecified as to episode of care Iron deficiency anemia secondary to blood loss (chronic) Vitamin D deficiency Unspecified vitamin D deficiency [facility] Diagnosis Primary hypercoagulable state (HCC)- Primary Primary hypercoagulable state Iron deficiency anemia secondary to blood loss (chronic) Vitamin D deficiency Unspecified vitamin D deficiency CVA, old, speech/language deficit Speech and language deficit, unspecified, late effect of cerebrovascular disease Antiphospholipid antibody syndrome (HCC) Primary hypercoagulable state [facility] Diagnosis Primary hypercoagulable state (HCC)- Primary Primary hypercoagulable state CVA, old, speech/language deficit Speech and language deficit, unspecified, late effect of cerebrovascular disease Hypercalcemia Vitamin D deficiency Unspecified vitamin D deficiency Iron deficiency anemia secondary to blood loss (chronic) Malaise and fatigue Other malaise and fatigue [facility] Diagnosis Vitamin D deficiency- Primary Unspecified vitamin D deficiency 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) Antiphospholipid antibody syndrome (HCC) Primary hypercoagulable state Malaise and fatigue Other malaise and fatigue [facility]* Diagnosis Vitamin D deficiency- Primary Unspecified vitamin D deficiency 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) [facility] 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 [facility]* Diagnosis Iron deficiency anemia of - Primary Anemia of mother, complicating , childbirth, or the puerperium, unspecified as to episode of care Iron deficiency anemia secondary to blood loss (chronic) [facility]* Diagnosis Iron deficiency anemia of - Primary Anemia of mother, complicating , childbirth, or the puerperium, unspecified as to episode of care Iron deficiency anemia secondary to blood loss (chronic) [facility]* 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 Vitamin D deficiency Unspecified vitamin D deficiency Malaise and fatigue Other malaise and fatigue [facility] Diagnosis Primary hypercoagulable state (HCC) Primary hypercoagulable state CVA, old, speech/language deficit Speech and language deficit, unspecified, 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 Hyposmolality and/or hyponatremia documented [facility]* Diagnosis Missed menses , unspecified gestational age Encounter for supervision of normal first in first trimester Hypothyroidism (acquired) (CMS/HCC) Unspecified hypothyroidism Low vitamin D level documented in [facility] Narrative No data available for this section [facility] Discharge instructions No data available for this section [facility] No data available for this section [facility] HospitalReason for referral (narrative) , pt reported hx of nasal polyps and deviated septum but never had surgery done Referred by: Lourdes Urrutia [facility] Summary Purpose Family History No Family History Records FoundNo Family History Records FoundNo Family History Records FoundNo Family History Records FoundNo Family History Records FoundNo Family History Records Found No data available for this section No data available for this section No data available for this section No data available for this section No data available for this section No data available for this section No data available for this section No Family History Records FoundNo Family History Records FoundNo Family History Records FoundNo Family History Records FoundNo Family History Records FoundNo Family History Records Found No data available for this section No data available for this section No Family History Records FoundNo Family History Records Found No data available for this section No Family History Records FoundNo Family History Records FoundNo Family History Records FoundNo Family History Records FoundNo Family History Records FoundNo Family History Records FoundNo Family History Records FoundNo Family History Records Found No data available for this section No data available for this section No data available for this section No data available for this section No Family History Records FoundNo Family History Records FoundNo Family History Records FoundNo Family History Records Found No data available for this section No Family History Records FoundNo Family History Records FoundNo Family History Records FoundNo Family History Records Found No data available for this section No Family History Records FoundNo Family History Records FoundNo Family History Records FoundNo Family History Records Found Advance Directives No Advanced Directives Records FoundNo Advanced Directives Records FoundNo Advanced Directives Records FoundNo Advanced Directives Records FoundNo Advanced Directives Records FoundNo Advanced Directives Records FoundNo Advanced Directives Records FoundNo Advanced Directives Records FoundNo Advanced Directives Records FoundNo Advanced Directives Records FoundNo Advanced Directives Records FoundNo Advanced Directives Records FoundNo Advanced Directives Records FoundNo Advanced Directives Records FoundNo Advanced Directives Records FoundNo Advanced Directives Records FoundNo Advanced Directives Records FoundNo Advanced Directives Records FoundNo Advanced Directives Records FoundNo Advanced Directives Records FoundNo Advanced Directives Records FoundNo Advanced Directives Records FoundNo Advanced Directives Records FoundNo Advanced Directives Records FoundNo Advanced Directives Records FoundNo Advanced Directives Records FoundNo Advanced Directives Records FoundNo Advanced Directives Records FoundNo Advanced Directives Records FoundNo Advanced Directives Records FoundNo Advanced Directiv es Records FoundNo Advanced Directives Records FoundNo Advanced Directives Records FoundNo AdvancedDirectives Records Found Medications Administered Section Inactive Administered Medications - up to 3 most recent administrations Medication Order MAR Action Action Date Dose Rate Site iron sucrose 300 mg in NaCl 0.9% 250 mL (VENOFER) 300 mg, INTRAVENOUS, at 166.67 mL/hr, Administer over 90 Minutes, ONCE, 1 dose, On Sun04/05/22 at 1400, Please conduct a 30 minute post dose observation. Rate/Dose Change 04/05/2022 2:44 PM EST 166.67 mL/hr Restarted 04/05/2022 2:25 PM EST 100 mL/hr New Bag/Syringe/Bottle 04/05/2022 1:52 PM EST 300 mg 1 66.67 mL/hr Inactive Administered Medications - up to 3 most recent administrations Medication Order MAR Action Action Date Dose Rate Site iron sucrose 300 mg in NaCl 0.9% 250 mL (VENOFER) 300 mg, INTRAVENOUS, at 166.67 mL/hr, Administer over 90 Minutes, ONCE, 1 dose, On Sun04/20/22 at 1400, Please conduct a 30 minute post dose observation. New Bag/Syringe/Bottle 04/20/2022 2:01 PM EST 300 mg 166.67 mL/hr Additional Source Comments INFORMATION SOURCE (unrecogn ized section and content) DATE CREATED AUTHOR 10/22/2017 [facility] DATE CREATED AUTHOR AUTHOR'S ORGANIZ ATION 11/14/2017 [facility] DATE CREATED AUTHOR AUTHOR'S ORGANIZ ATION 06/18/2018 [facility] DATE CREATED AUTHOR AUTHOR'S ORGANIZ ATION 12/30/2021 [facility] DATE CREATED AUTHOR AUTHOR'S ORGANIZ ATION 06/09/2022 [facility] DATE CREATED AUTHOR AUTHOR'S ORGANIZ ATION 09/29/2023 [facility] DATE CREATED AUTHOR AUTHOR'S ORGANIZ ATION 11/21/2023 [facility] DATE CREATED AUTHOR AUTHOR'S ORGANIZ ATION 12/03/2023 [facility] DATE CREATED AUTHOR AUTHOR'S ORGANIZ ATION 12/09/2023 [facility] DATE CREATED AUTHOR AUTHOR'S ORGANIZ ATION 12/10/2023 [facility] DATE CREATED AUTHOR AUTHOR'S ORGANIZ ATION 01/27/2024 [facility] DATE CREATED AUTHOR AUTHOR'S ORGANIZ ATION 02/24/2024 [facility] DATE CREATED AUTHOR AUTHOR'S ORGANIZ ATION 02/26/2024 [facility] DATE CREATED AUTHOR AUTHOR'S ORGANIZ ATION 02/28/2024 [facility] DATE CREATED AUTHOR AUTHOR'S ORGANIZ ATION 02/29/2024 [facility] DATE CREATED AUTHOR AUTHOR'S ORGANIZ ATION 03/02/2024 [facility] DATE CREATED AUTHOR AUTHOR'S ORGANIZ ATION 03/03/2024 [facility] DATE CREATED AUTHOR AUTHOR'S ORGANIZ ATION 03/08/2024 [facility] Source Comments (unrecognize d section and content) In the event this informatio n is protected by the Federal Confidentiality of Alcohol and Drug Abuse Patient Records regulations: The Federal rules restrict any use of the information to criminally investigate or prosecute any alcohol or drug abuse patient.[facility] CenterIn the event this information is protected by the Federal Confidentiality of Alcohol and Drug Abuse Patient Records regulations: The Federal rules restrict any use of the information to criminally investigate or prosecute any alcohol or drug abuse patient.[facility] CenterIn the event this information is protected by the Federal Confidentiality of Alcohol and Drug Abuse Patient Records regulations: The Federal rules restrict any use of the information to criminally investigate or prosecute any alcohol or drug abuse patient.[facility] CenterIn the event this information is protected by the Federal Confidentiality of Alcohol and Drug Abuse Patient Records regulations: The Federal rules restrict any use of the information to criminally investigate or prosecute any alcohol or drug abuse patient.[facility] CenterIn the event this information is protected by the Federal Confidentiality of Alcohol and Drug Abuse Patient Records regulations: The Federal rules restrict any use of the information to criminally investigate or prosecute any alcohol or drug abuse patient.[facility] CenterIn the event this information is protected by the Federal Confidentiality of Alcohol and Drug Abuse Patient Records regulations: The Federal rules restrict any use of the information to criminally investigate or prosecute any alcohol or drug abuse patient.[facility] CenterIn the event this information is protected by the Federal Confidentiality of Alcohol and Drug Abuse Patient Records regulations: The Federal rules restrict any use of the information to criminally investigate or prosecute any alcohol or drug abuse patient.[facility] CenterIn the event this information is protected by the Federal Confidentiality of Alcohol and Drug Abuse Patient Records regulations: The Federal rules restrict any use of the information to criminally investigate or prosecute any alcohol or drug abuse patient.[facility] CenterIn the event this information is protected by the Federal Confidentiality of Alcohol and Drug Abuse Patient Records regulations: The Federal rules restrict any use of the information to criminally investigate or prosecute any alcohol or drug abuse patient.[facility] CenterIn the event this information is protected by the Federal Confidentiality of Alcohol and Drug Abuse Patient Records regulations: The Federal rules restrict any use of the information to criminally investigate or prosecute any alcohol or drug abuse patient.[facility] CenterIn the event this information is protected by the Federal Confidentiality of Alcohol and Drug Abuse Patient Records regulations: The Federal rules restrict any use of the information to criminally investigate or prosecute any alcohol or drug abuse patient.[facility] CenterIn the event this information is protected by the Federal Confidentiality of Alcohol and Drug Abuse Patient Records regulations: The Federal rules restrict any use of the information to criminally investigate or prosecute any alcohol or drug abuse patient.[facility] CenterIn the event this information is protected by the Federal Confidentiality of Alcohol and Drug Abuse Patient Records regulations: The Federal rules restrict any use of the information to criminally investigate or prosecute any alcohol or drug abuse patient.[facility] CenterIn the event this information is protected by the Federal Confidentiality of Alcohol and Drug Abuse Patient Records regulations: The Federal rules restrict any use of the information to criminally investigate or prosecute any alcohol or drug abuse patient.[facility] CenterIn the event this information is protected by the Federal Confidentiality of Alcohol and Drug Abuse Patient Records regulations: The Federal rules restrict any use of the information to criminally investigate or prosecute any alcohol or drug abuse patient.[facility] CenterIn the event this information is protected by the Federal Confidentiality of Alcohol and Drug Abuse Patient Records regulations: The Federal rules restrict any use of the information to criminally investigate or prosecute any alcohol or drug abuse patient.[facility] CenterIn the event this information is protected by the Federal Confidentiality of Alcohol and Drug Abuse Patient Records regulations: The Federal rules restrict any use of the information to criminally investigate or prosecute any alcohol or drug abuse patient.[facility] CenterIn the event this information is protected by the Federal Confidentiality of Alcohol and Drug Abuse Patient Records regulations: The Federal rules restrict any use of the information to criminally investigate or prosecute any alcohol or drug abuse patient.[facility] CenterIn the event this information is protected by the Federal Confidentiality of Alcohol and Drug Abuse Patient Records regulations: The Federal rules restrict any use of the information to criminally investigate or prosecute any alcohol or drug abuse patient.[facility] CenterIn the event this information is protected by the Federal Confidentiality of Alcohol and Drug Abuse Patient Records regulations: The Federal rules restrict any use of the information to criminally investigate or prosecute any alcohol or drug abuse patient.[facility] CenterIn the event this information is protected by the Federal Confidentiality of Alcohol and Drug Abuse Patient Records regulations: The Federal rules restrict any use of the information to criminally investigate or prosecute any alcohol or drug abuse patient.[facility] CenterIn the event this information is protected by the Federal Confidentiality of Alcohol and Drug Abuse Patient Records regulations: The Federal rules restrict any use of the information to criminally investigate or prosecute any alcohol or drug abuse patient.[facility] CenterIn the event this information is protected by the Federal Confidentiality of Alcohol and Drug Abuse Patient Records regulations: The Federal rules restrict any use of the information to criminally investigate or prosecute any alcohol or drug abuse patient.[facility] CenterIn the event this information is protected by the Federal Confidentiality of Alcohol and Drug Abuse Patient Records regulations: The Federal rules restrict any use of the information to criminally investigate or prosecute any alcohol or drug abuse patient.[facility] CenterIn the event this information is protected by the Federal Confidentiality of Alcohol and Drug Abuse Patient Records regulations: The Federal rules restrict any use of the information to criminally investigate or prosecute any alcohol or drug abuse patient.[facility] CenterIn the event this information is protected by the Federal Confidentiality of Alcohol and Drug Abuse Patient Records regulations: The Federal rules restrict any use of the information to criminally investigate or prosecute any alcohol or drug abuse patient.[facility] CenterIn the event this information is protected by the Federal Confidentiality of Alcohol and Drug Abuse Patient Records regulations: The Federal rules restrict any use of the information to criminally investigate or prosecute any alcohol or drug abuse patient.[facility] CenterIn the event this information is protected by the Federal Confidentiality of Alcohol and Drug Abuse Patient Records regulations: The Federal rules restrict any use of the information to criminally investigate or prosecute any alcohol or drug abuse patient.[facility] CenterIn the event this information is protected by the Federal Confidentiality of Alcohol and Drug Abuse Patient Records regulations: The Federal rules restrict any use of the information to criminally investigate or prosecute any alcohol or drug abuse patient.[facility] CenterIn the event this information is protected by the Federal Confidentiality of Alcohol and Drug Abuse Patient Records regulations: The Federal rules restrict any use of the information to criminally investigate or prosecute any alcohol or drug abuse patient.[facility] CenterIn the event this information is protected by the Federal Confidentiality of Alcohol and Drug Abuse Patient Records regulations: The Federal rules restrict any use of the information to criminally investigate or prosecute any alcohol or drug abuse patient.[facility] CenterIn the event this information is protected by the Federal Confidentiality of Alcohol and Drug Abuse Patient Records regulations: The Federal rules restrict any use of the information to criminally investigate or prosecute any alcohol or drug abuse patient.[facility] CenterIn the event this information is protected by the Federal Confidentiality of Alcohol and Drug Abuse Patient Records regulations: The Federal rules restrict any use of the information to criminally investigate or prosecute any alcohol or drug abuse patient.[facility] CenterIn the event this information is protected by the Federal Confidentiality of Alcohol and Drug Abuse Patient Records regulations: The Federal rules restrict any use of the information to criminally investigate or prosecute any alcohol or drug abuse patient.[facility] CenterIn the event this information is protected by the Federal Confidentiality of Alcohol and Drug Abuse Patient Records regulations: The Federal rules restrict any use of the information to criminally investigate or prosecute any alcohol or drug abuse patient.[facility] CenterIn the event this information is protected by the Federal Confidentiality of Alcohol and Drug Abuse Patient Records regulations: The Federal rules restrict any use of the information to criminally investigate or prosecute any alcohol or drug abuse patient.[facility] CenterIn the event this information is protected by the Federal Confidentiality of Alcohol and Drug Abuse Patient Records regulations: The Federal rules restrict any use of the information to criminally investigate or prosecute any alcohol or drug abuse patient.[facility] CenterIn the event this information is protected by the Federal Confidentiality of Alcohol and Drug Abuse Patient Records regulations: The Federal rules restrict any use of the information to criminally investigate or prosecute any alcohol or drug abuse patient.[facility] CenterIn the event this information is protected by the Federal Confidentiality of Alcohol and Drug Abuse Patient Records regulations: The Federal rules restrict any use of the information to criminally investigate or prosecute any alcohol or drug abuse patient.[facility] CenterIn the event this information is protected by the Federal Confidentiality of Alcohol and Drug Abuse Patient Records regulations: The Federal rules restrict any use of the information to criminally investigate or prosecute any alcohol or drug abuse patient.[facility] CenterIn the event this information is protected by the Federal Confidentiality of Alcohol and Drug Abuse Patient Records regulations: The Federal rules restrict any use of the information to criminally investigate or prosecute any alcohol or drug abuse patient.[facility] CenterIn the event this information is protected by the Federal Confidentiality of Alcohol and Drug Abuse Patient Records regulations: The Federal rules restrict any use of the information to criminally investigate or prosecute any alcohol or drug abuse patient.[facility] Care Teams (unrecognized sec tion and content) Assistant Department Manager Relationship Specialty Start Date End Date Humaira Gaviria MD [address] [place] [address] PCP - General Internal Medicine 07/05/18 Jonny Wilcox MD [address] [place] [address] Primary Staff Physician Cardiology 07/16/18 Assistant Department Manager Relationship Specialty Start Date End Date Humaira Gaviria MD [address] [place] [address] PCP - General Internal Medicine 07/05/18 Jonny Wilcox MD [address] [place] [address] Primary Staff Physician Cardiology 07/16/18 Assistant Department Manager Relationship Specialty Start Date End Date Humaira Gaviria MD [address] [place] [address] PCP - General Internal Medicine 07/05/18 Jonny Wilcox MD [address] [place] [address] Primary Staff Physician Cardiology 07/16/18 Assistant Department Manager Relationship Specialty Start Date End Date Humaira Gaviria MD [address] [place] [address] PCP - General Internal Medicine 07/05/18 Jonny Wilcox MD [address] [place] [address] Primary Staff Physician Cardiology 07/16/18 Assistant Department Manager Relationship Specialty Start Date End Date Humaira Gaviria MD [address] [place] [address] PCP - General Internal Medicine 07/05/18 Jonny Wilcox MD [address] [place] [address] Primary Staff Physician Cardiology 07/16/18 [place] [address] [place] [address] Physician Hematology/Oncology 09/14/21 Davida Restrepo RN [address] [place] [address] Specialty Inspector Watch Train Hematology/Oncology 09/14/21 Assistant Department Manager Relationship Specialty Start Date End Date Evans Casas [address] [place] [address] PCP - General Family Medicine 10/04/20 Assistant Department Manager Relationship Specialty Start Date End Date Humaira Gaviria MD [address] [place] [address] PCP - General Internal Medicine 07/05/18 Jonny Wilcox MD [address] [place] [address] Primary Staff Physician Cardiology 07/16/18 [place] [address] [place] [address] Physician Hematology/Oncology 09/14/21 Davida Restrepo, RN [address] [place] [address] Specialty Inspector Watch Train Hematology/Oncology 09/14/21 Assistant Department Manager Relationship Specialty Start Date End Date Evans Casas DO [address] [facility] [place] [address] PCP - General Family Medicine 01/30/22 Jonny Wilcox MD [address] [place] [address] Primary Staff Physician Cardiology 07/16/18 [place] [address] [place] [address] Physician Hematology/Oncology 09/14/21 Davida Restrepo, RN [address] [place] [address] Specialty Inspector Watch Train Hematology/Oncology 09/14/21 Assistant Department Manager Relationship Specialty Start Date End Date Evans Casas DO [address] [facility] [place] [address] PCP - General Family Medicine 01/30/22 Jonny Wilcox MD [address] [place] [address] Primary Staff Physician Cardiology 07/16/18 [place] [address] [place] [address] Physician Hematology/Oncology 09/14/21 Davida Restrepo, RN [address] [place] [address] Specialty Inspector Watch Train Hematology/Oncology 09/14/21 Assistant Department Manager Relationship Specialty Start Date End Date Evans Casas DO [address] [facility] [place] [address] PCP - General Family Medicine 01/30/22 Jonny Wilcox MD [address] [place] [address] Primary Staff Physician Cardiology 07/16/18 [place] [address] [place] [address] Physician Hematology/Oncology 09/14/21 Davida Restrepo, RN [address] [place] [address] Specialty Inspector Watch Train Hematology/Oncology 09/14/21 Assistant Department Manager Relationship Specialty Start Date End Date Evans Casas DO [address] [place] [address] PCP - General Family Medicine 01/30/22 Jonny Wilcox MD [address] [place] [address] Primary Staff Physician Cardiology 07/16/18 [place] [address] [place] [address] Physician Hematology/Oncology 09/14/21 Davida Restrepo, RN [address] [place] [address] Specialty Inspector Watch Train Hematology/Oncology 09/14/21 Assistant Department Manager Relationship Specialty Start Date End Date Evans Casas, DO [address] [facility] [place] [address] PCP - General Family Medicine 01/30/22 Jonny Wilcox MD [address] [place] [address] Primary Staff Physician Cardiology 07/16/18 [place] [address] [place] [address] Physician Hematology/Oncology 09/14/21 Davida Restrepo, RN [address] [place] [address] Specialty Inspector Watch Train Hematology/Oncology 09/14/21 Assistant Department Manager Relationship Specialty Start Date End Date Evans Casas, DO [address] [place] [address] PCP - General Family Medicine 01/30/22 Jonny Wilcox MD [address] [place] [address] Primary Staff Physician Cardiology 07/16/18 [place] [address] [place] [address] Physician Hematology/Oncology 09/14/21 Davida Restrepo, RN [address] [place] [address] Specialty Inspector Watch Train Hematology/Oncology 09/14/21 Assistant Department Manager Relationship Specialty Start Date End Date Evans Casas DO [address] [place] [address] PCP - General Family Medicine 01/30/22 Jonny Wilcox MD [address] [place] [address] Primary Staff Physician Cardiology 07/16/18 [place] [address] [place] [address] Physician Hematology/Oncology 09/14/21 Davida Restrepo, RN [address] [place] [address] Specialty Inspector Watch Train Hematology/Oncology 09/14/21 Assistant Department Manager Relationship Specialty Start Date End Date Evans Casas DO [address] [place] [address] PCP - General Family Medicine 01/30/22 Jonny Wilcox MD [address] [place] [address] Primary Staff Physician Cardiology 07/16/18 [place] [address] [place] [address] Physician Hematology/Oncology 09/14/21 Davida Restrepo, RN [address] [place] [address] Specialty Inspector Watch Train Hematology/Oncology 09/14/21 Assistant Department Manager Relationship Specialty Start Date End Date Evans Casas DO [address] [place] [address] PCP - General Family Medicine 01/30/22 Jonny Wilcox MD [address] [place] [address] Primary Staff Physician Cardiology 07/16/18 [place] [address] [place] [address] Physician Hematology/Oncology 09/14/21 Davida Restrepo, RN [address] [place], [place] [id number] Specialty Inspector Watch Train Hematology/Oncology 09/14/21 Assistant Department Manager Relationship Specialty Start Date End Date Evans Casas DO [address] [facility] [place] [address] PCP - General Family Medicine 01/30/22 Jonny Wilcox MD [address] [place] [address] Primary Staff Physician Cardiology 07/16/18 [place] [address] [place] [address] Physician Hematology/Oncology 09/14/21 Davida Restrepo, RN [address] [place] [address] Specialty Inspector Watch Train Hematology/Oncology 09/14/21 Assistant Department Manager Relationship Specialty Start Date End Date Evans Casas DO [address] [facility] [place] [address] PCP - General Family Medicine 01/30/22 Jonny Wilcox MD [address] [place] [address] Primary Staff Physician Cardiology 07/16/18 [place] [address] [place] [address] Physician Hematology/Oncology 09/14/21 Davida Restrepo RN [address] [place], [place] [id number] Specialty Inspector Watch Train Hematology/Oncology 09/14/21 Assistant Department Manager Relationship Specialty Start Date End Date Evans Casas DO [address] [place] [address] PCP - General Family Medicine 01/30/22 Jonny Wilcox MD [address] [place] [address] Primary Staff Physician Cardiology 07/16/18 [place] [address] [place] [address] Physician Hematology/Oncology 09/14/21 Davida Restrepo RN [address] [place] [address] Specialty Inspector Watch Train Hematology/Oncology 09/14/21 Assistant Department Manager Relationship Specialty Start Date End Date Evans Casas DO [address] [facility] [place] [address] PCP - General Family Medicine 01/30/22 Jonny Wilcox MD [address] [place] [address] Primary Staff Physician Cardiology 07/16/18 [place] [address] [place] [address] Physician Hematology/Oncology 09/14/21 Davida Restrepo RN [address] [place] [address] Specialty Inspector Watch Train Hematology/Oncology 09/14/21 Assistant Department Manager Relationship Specialty Start Date End Date Evans Casas DO [address] [place] [address] PCP - General Family Medicine 01/30/22 Jonny Wilcox MD [address] [place] [address] Primary Staff Physician Cardiology 07/16/18 [place] [address] [place] [address] Physician Hematology/Oncology 09/14/21 Davida Restrepo, MARSHA [address] [place] [address] Specialty Inspector Watch Train Hematology/Oncology 09/14/21 Assistant Department Manager Relationship Specialty Start Date End Date Evans Casas DO [address] [facility] [place] [address] PCP - General Family Medicine 01/30/22 Jonny Wilcox MD [address] [place] [address] Primary Staff Physician Cardiology 07/16/18 [place] [address] [place] [address] Physician Hematology/Oncology 09/14/21 Davida Restrepo, MARSHA [address] [place] [address] Specialty Inspector Watch Train Hematology/Oncology 09/14/21 Assistant Department Manager Relationship Specialty Start Date End Date Evans Casas DO [address] [facility] [place] [place] [address] PCP - General Family Medicine 01/30/22 Jonny Wilcox MD [address] [place] [address] Primary Staff Physician Cardiology 07/16/18 [place] [address] [place] [address] Physician Hematology/Oncology 09/14/21 Davida Restrepo, RN [address] [place] [address] Specialty Inspector Watch Train Hematology/Oncology 09/14/21 Assistant Department Manager Relationship Specialty Start Date End Date Evans Casas DO [address] [place] [address] PCP - General Family Medicine 01/30/22 Jonny Wilcox MD [address] [place] [address] Primary Staff Physician Cardiology 07/16/18 [place] [address] [place] [address] Physician Hematology/Oncology 09/14/21 Davida Restrepo, RN [address] [place] [address] Specialty Inspector Watch Train Hematology/Oncology 09/14/21 Assistant Department Manager Relationship Specialty Start Date End Date Evans Casas DO [address] [place] [address] PCP - General Family Medicine 01/30/22 Jonny Wilcox MD [address] [facility] [place] [address] Primary Staff Physician Cardiology 07/16/18 [place] [address] [place] [address] Physician Hematology/Oncology 09/14/21 Davida Restrepo RN [address] [place] [address] Specialty Inspector Watch Train Hematology/Oncology 09/14/21 Assistant Department Manager Relationship Specialty Start Date End Date Evans Casas DO [address] [facility] [place] [address] PCP - General Family Medicine 01/30/22 Jonny iWlcox MD [address] [place] [address] Primary Staff Physician Cardiology 07/16/18 [place] [address] [place] [address] Physician Hematology/Oncology 09/14/21 Davida Restrepo RN [address] [place] [address] Specialty Inspector Watch Train Hematology/Oncology 09/14/21 Assistant Department Manager Relationship Specialty Start Date End Date Evans Casas DO [address] [facility] [place] [address] PCP - General Family Medicine 01/30/22 Jonny Wilcox MD [address] [place] [address] Primary Staff Physician Cardiology 07/16/18 [place] [address] [place] [address] Physician Hematology/Oncology 09/14/21 Davida Restrepo, RN [address] [place] [address] Specialty Inspector Watch Train Hematology/Oncology 09/14/21 Assistant Department Manager Relationship Specialty Start Date End Date Evans Casas DO [address] [place] [address] PCP - General Family Medicine 01/30/22 Jonny Wilcox MD [address] [place] [address] Primary Staff Physician Cardiology 07/16/18 [place] [address] [place] [address] Physician Hematology/Oncology 09/14/21 Davida Restrepo RN [address] [place] [address] Specialty Inspector Watch Train Hematology/Oncology 09/14/21 Assistant Department Manager Relationship Specialty Start Date End Date Evans Casas DO [address] [place] [address] PCP - General Family Medicine 01/30/22 Jonny Wilcox MD [address] [place] [address] Primary Staff Physician Cardiology 07/16/18 [place] [address] [place] [address] Physician Hematology/Oncology 09/14/21 Davida Restrepo, RN [address] [place], [place] [id number] Specialty Inspector Watch Train Hematology/Oncology 09/14/21 Assistant Department Manager Relationship Specialty Start Date End Date Evans Casas DO [address] [facility] [place] [address] PCP - General Family Medicine 01/30/22 Jonny Wilcox MD [address] [place] [address] Primary Staff Physician Cardiology 07/16/18 [place] [address] [place] [address] Physician Hematology/Oncology 09/14/21 Davida Restrepo RN [address] [place] [address] Specialty Inspector Watch Train Hematology/Oncology 09/14/21 Assistant Department Manager Relationship Specialty Start Date End Date Evans Casas DO [address] [facility] [place] [address] PCP - General Family Medicine 01/30/22 Jonny Wilcox MD [address] [place] [address] Primary Staff Physician Cardiology 07/16/18 [place] [address] [place] [address] Physician Hematology/Oncology 09/14/21 Davida Restrepo, RN [address] [place] [address] Specialty Inspector Watch Train Hematology/Oncology 09/14/21 Assistant Department Manager Relationship Specialty Start Date End Date Evans Casas MD [address] [place] [address] [place] [address] PCP - General Family Medicine 11/07/23 Reason for Visit (unrecogniz ed section and content) Reason Comments Future Appointment Reason Comments Patient Question Reason Comments Medication Question Reason Onset Date Comments Refill Request 10/10/2021 Reason Onset Date Comments Refill Request 12/30/2021 Reason Comments Hypercoagulable state 6 month follow up Reason Comments Primary hypercoagulable state 8 week fol low up Reason Comments Results Reason Comments Appointment Patient Question Medication Question Orders Specialty Diagnoses / Procedures Referred By [facility] Referred To Contact Diagnoses Iron deficiency anemia secondary to blood loss (chronic) Iron deficiency anemia of Procedures INJECTION, FERRIC DERISOMALTOSE, 10 MG Salvador Calix MD [address] [place] [address] [place] [address] Delgado [address] [place] [place] [address] Referral ID Status Reason Start Date Expiration Date Visits Re quested Visits Authorized [id number] Closed 04/05/2022 05/09/2022 1 1 Reason Comments Refill Request Specialty Diagnoses / Procedures Referred By [facility] Referred To Contact Diagnoses Iron deficiency anemia secondary to blood loss (chronic) Iron deficiency anemia of Procedures IRON SUCROSE INJECTION PER 1 MG Salvador Calix MD [address] [place] [address] [place] [address] Delgado [address] [place] [place] [address] Referral ID Status Reason Start Date Expiration Date V isits Requested Visits Authorized [id number] Authorized 03/27/2022 04/30/2022 99 99 Reason Onset Date Comments Refill Request 07/03/2022 Reason Comments Anemia Follow up Reason Comments Orders Reason Comments Established Patient Reason Comments Appointment Reason Comments Lab Orders Reason Comments Primary hypercoagulable state (HCC) Foll ow up Reason Comments Appointment Rescheduled Specialty Diagnoses / Procedures Referred By Contkal t Referred To Contact Diagnoses Iron deficiency anemia of Iron deficiency anemia secondary to blood loss (chronic) Procedures IRON SUCROSE INJECTION PER 1 MG Salvador Calix MD [address] [facility] [address] Delgado Treat [place] Mc [address] [address] Referral ID Status Reason Start Date Expiration Date V isits Requested Visits Authorized [id number] Authorized 11/05/2023 05/04/2024 0 3 Reason Onset Date Comments Refill Request 11/29/2023 Reason Comments Amenorrhea FOR RECORDS PERTAINING TO PATIENTS WHO ARE OR HAVE BEEN ENROLLED IN A CHEMICAL DEPENDENCY/SUBSTANCEABUSE PROGRAM, SOME INFORMATION MAY BE OMITTED. This clinical summary was aggregated from multiple sources. Caution should be exercised in using it in the provision of clinical care. This summary normalizes information from multiple sources, and as a consequence, information in this document may materially change the coding, format and clinical context of patient data. In addition, data may be omitted in some cases. CLINICAL DECISIONS SHOULD BE BASED ON THE PRIMARY CLINICAL RECORDS. [employer] provides no warranty or guarantee of the accuracy or completeness of information in this document.
[2024-04-12 12:05] LABS: BOX Test Reference Lab UNITY; BOX Test Sent Out Y
[2024-04-12 12:05] LABS: Amphetamine Screen Urine NEGATIVE (NEGATIVE); Barbiturates Screen Urine NEGATIVE (NEGATIVE); Benzodiazepines Screen Urine NEGATIVE (NEGATIVE); Buprenorphine Screen Urine NEGATIVE (NEGATIVE); Cannabinoid Screen Urine NEGATIVE (NEGATIVE); Cocaine Screen Urine NEGATIVE (NEGATIVE); Methadone Screen Urine NEGATIVE (NEGATIVE); Methamphetamines Screen Urine NEGATIVE (NEGATIVE); Opiate Screen Urine NEGATIVE (NEGATIVE); Oxycodone Screen Urine NEGATIVE (NEGATIVE); Phencyclidine Screen Urine NEGATIVE (NEGATIVE); Tricyclic Antidepressant Urine NEGATIVE (NEGATIVE)
[2024-04-12 12:10] LABS: Estimated Average Glucose 120 mg/dL; Glycohemoglobin A1C 5.8 % (4.5-6.2)
[2024-04-12 12:24] LABS: Thyroid Stimulating Hormone 2.757 uIU/mL (0.358-3.740)
[2024-04-12 13:02] LABS: Basophils Percent Auto 0.4 % (0.2-2.0); Eosinophils Absolute Auto 0.1 10^3/uL (0.0-0.7); Eosinophils Percent Auto 0.7 % (0.9-7.0); Hematocrit 45.5 % (36.0-48.0); Hemoglobin 15.6 g/dL (12.0-16.0); Immature Granulocytes Abs Auto 0.04 10^3/uL (0.00-0.03); Immature Granulocytes Pct Auto 0.4 % (0.0-0.5); Lymphocytes Absolute Auto 3.6 10^3/uL (1.2-3.8); Lymphocytes Percent Auto 34.4 % (20.5-60.0); Mean Corpuscular HGB Conc 34.3 g/dL (29.9-35.2); Mean Corpuscular Hemoglobin 30.6 pg (26.7-34.0); Mean Corpuscular Volume 89.4 fL (81.0-99.0); Mean Platelet Volume 10.4 fL (9.5-13.5); Monocytes Absolute Auto 0.7 10^3/uL (0.3-0.8); Monocytes Percent Auto 6.5 % (1.7-12.0); Neutrophils Absolute Auto 6.1 10^3/uL (1.4-6.5); Neutrophils Percent Auto 57.6 % (43.0-75.0); Platelet Count 339 10^3/uL (150-450); Red Blood Count 5.09 10^6/uL (4.20-5.40); Red Cell Distribution Width 12.7 % (11.0-15.0); White Blood Count 10.6 10^3/uL (4.0-11.0)
[2024-04-13 08:07] LABS: HBsAg Screen Negative (Negative)
[2024-04-13 09:06] LABS: Rubella Antibodies, IgG 1.08 index (Immune >0.99)
[2024-04-13 12:07] LABS: HCV Ab Non Reactive (Non Reactive); HIV Ab/p24 Ag Screen Non Reactive (Non Reactive)
[2024-04-15 13:07] LABS: Rapid Plasma Reagin, Quant Non Reactive titer (NonRea<1:1)
== END 2024-04-12 10:47 | disposition home or self-care (01) ==
LOC: LAB 10:48
PROVIDERS: PCP Family Medicine; Visit Provider Obstetrics & Gynecology
DX: Z34.01 Encounter for supervision of normal first pregnancy, first trimester (principal); Z36.0 Encounter for antenatal screening for chromosomal anomalies; E03.9 Hypothyroidism, unspecified; R79.89 Other specified abnormal findings of blood chemistry
CPT/HCPCS: 36415; 80307; 82306; 83036; 84443; 85025; 86592; 86762; 86803; 86850; 86900; 86901; 87086; 87340; 87389

== ENCOUNTER 2024-05-10 06:47 | Outpatient (OUT) | payer MEDICAID, SELFPAY ==
--- OUTSIDE RECORDS SUMMARY | 2024-05-10 06:53 | XMS_ITS | CCD ---
Author Organization [facility] Care Team Providers Care Development Mgr Name Role Phone PENG MONGE R Unavailable Unavailable BIBI CHRISTY Unavailable Unavailable ERIKA LONDON Attending Unavailab ERIKA Haddad Referring Unavailab Haseeb Chavez Attending Unavailable Peng Monge Referring Unavailable Humaira Gaviria MD Primary Care Provider [phone] Jonny Wilcox MD Unavailable Evans CASAS Primary Care Physician Cheri Norwood Unavailable Unavailable Cosmo Elliott MD Unavailable [phone] Lauro LARSON, Davida Unavailable Evans Casas Primary Care Provider EVANS CASAS Primary Care Unavailable TOD LOPEZ Referring Unavailable Humaira Gaviria MD Primary Care Provider [phone] Jonny Wilcox MD P Unavailable [phone] Cosmo Elliott MD R Unavailable [phone] Lauro RN, Davida Unavailable Evans Casas DO Primary Care Provider Jonny Wilcox MD P Unavailable Cosmo Elliott MD R Unavailable [phone] Lauro LARSON, Davida Unavailable Evans Casas [...] Unavailable MONTEZ, DR ROQUE Primary Care Unavailable WOOD, DR ANGIE [employer] Unavailable MONTEZ, DR [...] ACUNA Procedure Practitioner Unava ilable KARASIK, DR ACUNA Attending Unavailable MONTEZ, DR [...] Brenden ROSARIO, Jonny Tsai Unavailable Lauro LARSON, Davida Unavailable Evans Casas DO [...] Nausea (finding), Other (See Comments), GI intolerance [facility] Work Phone: (20 sources) Ciprofloxacin / fluocinolone; 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: [CIPROFLOXACIN-FL UOCINOLONE] Drug Allergy 05-19-19 Other: See Comments [facility] (20 sources) cow milk allergenic extract; 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: [MILK] Drug Allergy 05-25-19 Other: See Comments [facility] Work Phone: (20 sources) Lactalbumin; 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: [LACTALBUMIN] Drug Allergy 05-25-19 18 Unknown, GI Upset [facility] (20 sources) Lactose; 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: [LACTOSE] Drug Allergy 09-11-19 18 GI Upset [facility] (20 sources) Milk Drug Allergy 05-25-19 18 Other: See Comments [facility] (6 sources) Penicillins Drug Allergy 02-01-20 19 Unknown [facility] (20 sources) Seasonal allergy; 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: [SEASONAL ALLERGIES] Allergy to substance 05-05-19 21 GI Upset, Other: See Comments [facility] Work Phone: (20 sources) Milk Products; 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: [Milk Products] Drug allergy Illness (finding) [facility] (6 sources) Ciprofloxacin / fluocinolone Drug Allergy 05-19-19 20 Other (See Comments) [employer] Work Phone: (1 source) Seasonal allergy Propensity to adverse reactions to substance 05-05-19 21 Other (See Comments) [employer] Work Phone: (1 source) Milk-Related Compounds Propensity to adverse reactions to drug 05-25-19 18 Other (See Comments) [employer] Phone: (2 sources) Penicillins Drug Allergy 02-01-20 19 Unknown [facility] (1 source) Ciprofloxacin Drug Allergy 03-30-20 22 [facility] (1 source) MILK CONTAINING PRODUCTS (DAIRY); 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: [MILK CONTAINING PRODUCTS (DAIRY)] Propensity to adverse reactions to drug (disorder) 05-25-19 18 [facility] (5 sources) Lactose (non-medical use) Propensity to adverse reactions 09-11-19 18 [facility] (5 sources) Lactose (non-medical use) Drug Allergy 11-15-19 24 [facility] (5 sources) Octacosanol Drug Intolerance 05-05-19 21 [facility] (5 sources) Other Allergy to substance 05-25-19 18 Other [facility] Work Phone: Medications Current Medications [...] puff(s), Inhalation, q6hr, 1 EA, Refill(s) 5, [facility], 168, cm, 02/02/24 14:43:00 EDT, Height/Length Dosing, 101.1, kg, 02/02/24 14:43:00 EDT, Weight Dosing Start Date: 02/02/24 Status: Ordered azithromycin 250 mg Tab 5-day Dose Pack (Z-Jonny) (2 sources) Start: 02-02-2024 End: 02-07-2024 azithromycin 250 mg Tab 5-day Dose Pack (Z-Jonny) = 1 packet(s), Oral, As Directed, as directed on package labeling, X 5 day(s), # 6 tab(s), Refills(s) 0, Pharmacy: [facility], 168, cm, 02/02/24 14:43:00 EDT, [...] day(s), # 20 tab(s), Refills(s) 0, Pharmacy: [facility] 1986, 168, cm, 08/19/21 10:50:00 EDT, Height/Length Dosing, 103.6, kg, 08/19/21 10:50:00 EDT, Weight Dosing Start Date: 08/19/21 Stop Date: 08/29/21 Status: Ordered ciprofloxacin 3 mg/ml / dexamethasone 1 mg/ml otic suspension (2 sources) Corticosteroid, Quinolone Antimicrobial Start: 10-23-2023 End: 10-30-2023 Ciprodex 0.3%-0.1% Susp-Otic 4 drop(s), Otic, BID for 7 day(s), 7.5 mL, Refill(s) 0, [id number], 168, cm, 10/23/23 16:55:00 EDT, Height/Length Dosing, 106.2, kg, 10/23/23 16:55:00 EDT, Weight Dosing Start Date: 10/23/23 Stop Date: 10/30/23 Status: Ordered Start: 02-15-2023 End: 02-22-2023 Ciprodex 0.3%-0.1% Susp-Otic 4 drop(s), Otic, BID for 7 day(s), 7.5 mL, Refill(s) 0, Only use if drainage or pain of ear shake well before using, [facility], 168, cm, 02/15/23 9:49:00 EDT, Height/Length Dosing, [...] SYRINGE SUBCUTANEOUSLY EVERY 24 HOURS 90 mL 04/28/2024 Active Start: 04-06-2022 End: 09-28-2022 enoxaparin (LOVENOX) [...] (LOVENOX) 40 MG/0.4ML injection (1 source) Start: enoxaparin (LOVENOX) 40 MG/0.4ML injection Inject 0.4 mLs into the skin daily 16 mL 1 02/20/2020 Active famotidine 20 mg oral tablet (8 sources) Histamine-2 Receptor Antagonist Start: take 1 tablet by mouth once daily famotidine (PEPCID) 20 mg tablet Take 1 tablet by mouth once daily. To take prior to infusion 1 tablet 11/29/2023 Active Start: 11-29-2023 End: 11-29-2023 famotidine 20 mg injection ( PEPCID) fluticasone propionate 0.05 mg/actuat metered dose nasal spray (3 sources) Corticosteroid Start: 08-03-2023 Flonase 0.05 m g/inh [place] 2 spray(s), Nasal, Daily, 16 gram, Refill(s) [...] mcg by mouth. 0 08/24/2021 09/26/2023 Discontinued End: 05-06-2024 take 3 tablets by mouth once daily levothyroxine (Synthroid) 25 MCG tablet Take 75 mcg by mouth 1 (one) time each day at the same time 05/06/2024 Discontinued Comment on above: Take 25 mcg by [...] tablet 03/26/2022 Active Multiple Vitamin (Multi-Vitamin) tablet (5 sources) take 1 tablet by luna th in [...] 1 tablet by luna th once daily. Vit-Fe Fumarate-FA ( PO) (1 source) Start: 10-31-2018 Vit-Fe Fumarate-FA ( PO) Take 1 tablet by mouth 0 10/31/2018 Active Vitamin D (12 sources) Start: 08-03-2023 Vitamin D 2,000 International_Unit, Oral, qWeek, Refills(s) 0 Start Date: 08/03/23 Status: Ordered Completed/Discontinued Medications Medication Drug Class(es) Dates Sig (Normalized) Sig (Original) aspirin 81 mg chewable tablet (5 sources) Platelet Aggregation Inhibitor, Nonsteroidal Anti-inflammatory Drug End: 05-06-2024 aspirin 81 MG chewable tablet Chew 81 mg in the morning. 05/06/2024 Discontinued azithromycin 250 mg oral tablet (3 sources) Macrolide Antimicrobial Start: 04-21-2024 End: 05-06-2024 azithromycin (Zithromax Z-Jonny) 250 MG tablet Indications: Upper respiratory tract infection, unspecified type As directed 6 tablet 04/21/2024 05/06/2024 Discontinued 1 ml dexamethasone phosphate 4 mg/ml injection [...] daily. ondansetron 4 mg disintegrating oral tablet (4 sources) Serotonin-3 Receptor Antagonist Start: 04-14-20 End: 05-14-19 take 1 tablet by mouth every six hours for nausea ondansetron ODT (Zofran-ODT) 4 MG disintegrating tablet Indications: Nausea and vomiting in Take 1 tablet (4 mg) by mouth every 6 (six) hours if needed for nausea or vomiting 30 tablet 2 04/14/2024 05/06/2024 Discontinued Start: 03-07-2024 End: 04-06-2024 take 1 tablet by mouth every six hours as needed for nausea and vomiting and nausea and nausea ondansetron ODT (Zofran-ODT) 4 MG disintegrating tablet Indications: Nausea Take 1 tablet (4 mg) by mouth every 6 (six) hours if needed for nausea or vomiting 30 tablet 2 03/07/2024 04/06/2024 Active polysaccharide iron complex 391 mg oral capsule (20 sources) Start: 03-06-2022 End: 09-26-2023 PRO FE 180 mg iron cap Problems Active Problems Problem Classification Problem Date Documented Date Episodic/Chronic Acute cerebrovascular disease (12 sources) Cerebral infarction; 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: [Cerebral infarction, unspecified] Onset: 0 05-16-2019 Chronic Anxiety disorders (20 sources) Anxiety; 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: [Anxiety disorder, unspecified] Onset: 4 12-24-2020 Chronic Cardiac dysrhythmias (6 sources) Supraventricular tachycardia; 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: [Supraventricular tachycardia] Onset: [...] Anemia; 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: [Anemia, unspecified] Episodic Esophageal disorders (5 sources) Laryngopharyngeal reflux; 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: [Gastro-esophageal reflux disease without [...] REPLACEMENT THERAPY] Onset: 3 Episodic Menstrual disorders (11 sources) Irregular menstruation, unspecified; 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: [Missed period] [...] Other residential (current) drug therapy; 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: [OTH LONG-TERM CURRENT DRUG THERAPY] Onset: 3 Episodic Other aftercare (1 source) group home (current) use of oral hypoglycemic drugs; 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: [LONG-TERM USE ORAL HYPOGLYCEMIC DX] Onset: 3 Episodic [...] of ; puerperium affecting management of mother (6 sources) Anemia in mother complicating childbirth; 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: [...] Episodic Other ear and sense organ disorders (6 sources) Otitis externa of right ear; 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: [...] Onset: 9 Chronic Other nervous system disorders (6 sources) Neuropathy; 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: [Idiopathic progressive neuropathy] Onset: [...] nutritional; endocrine; and metabolic disorders (20 sources) Body mass index 30+ - obesity; [...] disorders] Onset: 3 Chronic Residual codes; unclassified (20 sources) Obstructive sleep apnea syndrome; 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: [Obstructive sleep apnea (adult) (pediatric)] Onset: 4 10-25-2022 Chronic Residual codes; unclassified (5 sources) Patient encounter status; 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: [Other specified [...] edema; 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: [Localized edema] Onset: 4 Episodic Residual codes; unclassified (2 sources) Gestation period, 14 weeks; 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: [14 weeks gestation of ] 05-06-2024 Episodic Thyroid disorders (11 sources) Hypothyroidism; 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: [...] pelvis] Onset: 9 10-12-2020 Episodic Acute bronchitis (20 sources) Acute infective bronchitis; 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: [Acute bronchitis due to other specified organisms] Onset: 4 05-10-2021 Episodic Acute posthemorrhagic anemia (6 sources) Acute posthemorrhagic anemia; 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: [Acute posthemorrhagic anemia] Onset: 0 06-10-2020 Episodic Allergic reactions (20 sources) Other allergy status, other than to drugs and biological substances; 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: [Zvswx-vh-wdkimmr vesicular eczema of hands and feet] Onset: 4 Episodic Bacterial infection; unspecified site (6 sources) Bacterial infectious disease; 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: [Other bacterial infections of unspecified site] Onset: 0 02-12-2020 Episodic Calculus of urinary tract (20 sources) History of calculus of kidney; 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: [Personal history of urinary calculi] Onset: 4 11-21-2018 Episodic Cardiac dysrhythmias (15 sources) Palpitations; 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: [Palpitations] Onset: 0 06-10-2020 Episodic Conditions associated with dizziness or vertigo (20 sources) Dizziness; 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: [Dizziness and giddiness] Onset: 9 12-24-2020 Episodic Diabetes mellitus without complication (14 sources) Prediabetes; 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: [Prediabetes] Onset: 4 Episodic Diabetes or abnormal glucose tolerance complicating ; childbirth; or the puerperium (20 sources) Gestational diabetes mellitus in , unspecified control; 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: [Gestational diabetes mellitus in childbirth, unspecified control] Onset: 2 Episodic Diseases of mouth; excluding dental (20 sources) Xerostomia; 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: [Dry mouth, unspecified] Onset: 3 Episodic Fluid and electrolyte disorders (14 sources) Cerebral hyponatremia; 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: [Hypo-osmolality and hyponatremia] [...] vagina Resolved: 9 01-20-2019 Episodic Nutritional deficiencies (20 sources) Vitamin B deficiency; 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: [Deficiency of other specified B group vitamins] Onset: 0 05-16-2019 Episodic OB-related trauma to perineum and vulva (7 sources) First degree perineal tear during delivery - delivered; 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: [First degree perineal laceration during delivery] Onset: 0 10-12-2021 Episodic Other aftercare (6 sources) Long-term current use of anticoagulant; 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: [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 anticoagulants] Onset: 0 02-22-2020 Episodic Other aftercare (5 sources) Long-term current use of drug therapy; 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: [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/antipl atelets] Onset: 9 11-15-2023 Episodic Other circulatory disease (20 sources) History of cerebrovascular accident; 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: [Personal history of transient ischemic attack (TIA), and cerebral infarction without residual deficits] Onset: 4 07-29-2017 Episodic Comment on above: reported by pt - rel ated to antiphospholipid syndrome Other circulatory disease (20 sources) Elevated blood-pressure reading without diagnosis of hypertension; 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: [Elevated blood-pressure reading, without diagnosis of hypertension] Onset: 4 01-11-2023 Episodic Other circulatory disease (16 sources) Elevated blood pressure; 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: [Elevated blood-pressure reading, without diagnosis of hypertension] Onset: 4 09-28-2023 Episodic Other complications of ; puerperium affecting management of mother (14 sources) problem; 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: [Unspecified disorders of ] [...] of ; puerperium affecting management of mother (6 sources) hemorrhage; 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: [Other immediate hemorrhage] Onset: 0 02-08-2021 Episodic Other complications of (1 source) Vomiting of ; 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: [Vomiting of , unspecified] Onset: 0 07-11-2019 Episodic Other complications of (6 sources) 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; 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: [Maternal care for (suspected) chromosomal abnormality in fetus, not applicable or unspecified] Onset: 0 02-08-2021 Episodic Other complications of (4 sources) Other specified related conditions, third trimester; 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: [OTH SPEC PREG RELATED COND 3RD TRI] Onset: 2 Episodic Other ear and sense organ disorders (5 sources) Referred otalgia of right ear; 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: [Otalgia, right ear] Onset: 4 11-19-2023 Episodic Other female genital disorders (6 sources) Noninflammatory disorder of the vagina; 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: [Other specified noninflammatory disorders of vagina] Onset: 9 07-11-2019 Episodic Other female genital disorders (6 sources) Disorder of female reproductive system; 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: [...] 4 12-24-2018 Episodic Other infections; including parasitic (5 sources) Personal history of other infectious and parasitic diseases; 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: [History of COVID-19] Onset: 4 11-15-2023 Episodic Other inflammatory condition of skin (1 source) Itching of skin; 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: [Pruritus, unspecified] Onset: 0 06-10-2020 Episodic Other inflammatory condition of skin (5 sources) Pruritus, unspecified; 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: [Unspecified pruritic disorder] Onset: 0 11-15-2023 Episodic Other injuries and conditions due to external causes (5 sources) Inhalation injury; 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: [Injury, unspecified, initial encounter] Onset: 4 11-15-2023 Episodic Other lower respiratory disease (20 sources) Dyspnea; 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: [Dyspnea, unspecified] Onset: 4 04-19-2021 Episodic Other lower respiratory disease (20 sources) H/O: asthma; 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: [Personal history of other diseases of the respiratory system] Onset: 4 11-21-2018 Episodic Other lower respiratory disease (20 sources) Snoring; 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: [Snoring] Onset: 3 Episodic Other nervous system disorders (6 sources) Muscle fasciculation; 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: [Fasciculation] Onset: 2 Episodic Other nervous system disorders (2 sources) Paresthesia; 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: [Paresthesia of skin] Onset: 0 Episodic Other nervous system disorders (20 sources) Paresthesia of lower extremity; Translations: [Paresthesia of skin] Onset: 4 08-19-2021 Episodic Other nervous system disorders (6 sources) Acute postoperative pain; Translations: [Other acute postprocedural pain] Onset: 9 07-11-2019 Episodic Other non-traumatic joint disorders (20 sources) Joint pain; Translations: [Pain in unspecified joint] Onset: 7 09-11-2017 Episodic Other nutritional; endocrine; and metabolic disorders (20 sources) H/O: hypothyroidism; Translations: [Personal history of other endocrine, nutritional and metabolic disease] Onset: 4 04-27-2023 Episodic Other skin disorders (5 sources) Szwmq-co-oycjled vesicular eczema of hands and feet; Translations: [Dyshidrosis [pompholyx]] Onset: 4 11-15-2023 Episodic Other upper respiratory disease (15 sources) Deviated nasal septum; Translations: [Deviated nasal septum] Onset: 4 Episodic Other upper respiratory disease (14 sources) Polyp of nasal cavity and/or nasal [...] Resolved: 9 01-20-2019 Episodic Residual codes; unclassified (6 sources) First trimester ; Translations: [Less than 8 weeks gestation of ] Onset: 0 02-12-2020 Episodic Residual codes; unclassified (6 sources) Gestation period, 32 weeks; Translations: [32 [...] Onset: 0 02-08-2021 Episodic Residual codes; unclassified (7 sources) Other general symptoms and signs; Translations: [Other general symptoms] Onset: 0 02-08-2021 Episodic Residual codes; unclassified (1 source) Unspecified blood type, Rh negative; Translations: [UNSPECIFIED BLOOD TYPE RH NEGATIVE] Onset: 2 Episodic Residual codes; unclassified (1 source) 28 weeks gestation of ; Translations: [28 WEEKS GESTATION OF ] Onset: 2 Episodic Residual codes; unclassified (13 sources) Intolerant of cold; Translations: [Other general symptoms and signs] Onset: 4 11-09-2023 Episodic Residual codes; unclassified (5 sources) Non-smoker; Translations: [Other specified health status] Onset: 4 11-15-2023 Episodic Residual codes; unclassified (5 sources) Swelling of salivary gland; Translations: [Localized edema] Onset: 4 11-15-2023 Episodic Spondylosis; intervertebral disc disorders; other back problems (6 sources) Neck pain; Translations: [Cervicalgia] Onset: 9 07-11-2019 Episodic Spontaneous (20 sources) Miscarriage Resolved: 9 01-20-2019 Episodic Syncope (7 sources) Syncope and collapse; Translations: [Syncope and collapse] Onset: 9 07-11-2019 Episodic Unclassified (20 sources) Onset: 7 Resolved: 5 11-01-2018 Unclassified (20 sources) Suspected disease caused by 2019-nCoV 12-24-2020 Unclassified (1 source) Exposure to 2019 novel coronavirus; Translations: [Contact with and (suspected) exposure to COVID19] Urinary tract infections (7 sources) Infective urethritis; Translations: [Other urethritis] Onset: 0 Episodic Results Test Name Value Interpretation Reference Range Facility Urinalysis macro (dipstick) panel (U)on 05-06-2024 Bilirubin, UA Negative Negative - 4(70) +++ mg/dL [facility] Blood, UA Negative Negative - 50 Max/mcL [facility] Clarity, UA Clear [facility] Color, UA Yellow [facility] Glucose, UA Negative Negative - 2000(110) ++++ mg/dL [facility] Interpretation and review of laboratory results Normal [facility] Ketones, UA Negative Negative - 160(16) ++++ mg/dL [facility] Leukocytes, UA Negative Negative - 500+++ John/mcL [facility] Nitrite, UA Negative Negative - Positive [facility] pH, UA 6 5 - 9 [facility] Protein, UA Negative Negative - 2000(20) ++++ mg/dL [facility] Spec Grav, UA 1.01 1 - 1.03 [facility] Urobilinogen, UA 0.2 0.2 - 12 mg/dL [facility] BOX TESTon 04-12-2024 BOX TEST SENT OUT Y [facility] BOX1 UNITY [facility] BOX2 04/12/24 [facility] 04-12-2024 AMPHETAMINE SCREEN URINE Negative NEGATIVE [facility] BARBITURATES SCREEN URINE Negative NEGATIVE [facility] BENZODIAZEPINES SCREEN URINE Negative NEGATIVE [facility] BUPRENORPHINE SCREEN URINE Negative NEGATIVE [facility] Comment on above: DRUG CLASS TEST SYST EM CUT-OFF CONCENTRATIONS ARE FOLLOWS: AMP (Amphetamine): 500 ng/mL BAR (Barbiturates): 200 ng/mL BZO (Benzodiazepines): 150 ng/mL BUP (Buprenorphine): 10 ng/mL INDIA (Cocaine): 150 ng/mL mAMP (Methamphetamine): 500 ng/mL MTD (Methadone): 200 ng/mL OPI (Opiates): 100 ng/mL OXY (Oxycodone): 100 ng/mL PCP (Phencyclidine): 25 ng/mL THC (Cannabinoids): 50 ng/mL TCA (Trycyclic Antidepressants): 300 ng/mL CANNABINOID SCREEN URINE Negative NEGATIVE [facility] COCAINE SCREEN URINE Negative NEGATIVE [facility] METHADONE SCREEN URINE Negative NEGATIVE [facility] METHAMPHETAMINES SCREEN URINE Negative NEGATIVE [facility] OPIATE SCREEN URINE Negative NEGATIVE [facility] OXYCODONE SCREEN URINE Negative NEGATIVE [facility] PHENCYCLIDINE SCREEN URINE Negative NEGATIVE [facility] TRICYCLIC ANTIDEPRESSANT URINE Negative NEGATIVE [facility] CLINIS[facility]NC [facility] HCG ( test) Ql (U)o n 04-04-2024 Interpretation and review of laboratory results Abnormal [facility] Preg Test, Ur Positive Negative [facility] Urinalysis macro (dipstick) panel (U)on 04-04-2024 Bilirubin, UA Negative Negative - 4(70) +++ mg/dL [facility] Blood, UA Negative Negative - 50 Max/mcL [facility] Clarity, UA Clear [facility] Color, UA Yellow [facility] Glucose, UA Negative Negative - 1999(110) ++++ mg/dL [facility] Interpretation and review of laboratory results Normal [facility] Ketones, UA Negative Negative - 160(16) ++++ mg/dL [facility] Leukocytes, UA Negative Negative - 500+++ John/mcL [facility] Nitrite, UA Negative Negative - Positive [facility] pH, UA 5.5 5 - 9 [facility] Protein, UA Negative Negative - 1999(20) ++++ mg/dL [facility] Spec Grav, UA 1.02 1 - 1.03 [facility] Urobilinogen, UA 1.0 0.2 - 12 mg/dL [facility] C Urineon 03-03-2024 Bacteria identified Cx Nom (U) Microbiology PROCEDURE: Urine Culture [R1] SOURCE: U CleanCatch BODY SITE: COLLECTED DATE/TIME: 03/01/2024 10:30 EDT RECEIVED DATE/TIME: 03/01/2024 13:48 EDT START DATE/TIME: 03/01/2024 13:48 EDT FREE TEXT SOURCE: Wilton HERRMANN DO, DO, Corey R FINAL REPORTS Final Report [] Verified Date/Time: 03/03/2024 08:52 EST 2,000 cfu/ml Mixed skin contaminants Performing Locations R1: This test was performed at: [facility], [address] [place] [address], [facility]- , [place], [facility] Comment on above: Performed By: #### [id number] #### [facility] [address] [place] [address] Quanton 03-01-2024 HCG.beta subunit Qn 747 m[IU]/mL High 1-3 [facility] Comment on above: Result Comment: 'F N ON < 1 - 3' ' 0.2 - 1 WEEK = 5 TO 50' ' 1 - 2 WEEKS = 50 - 500' ' 2 - 3 WEEKS = 100 - 5000' ' 3 - 4 WEEKS = 500 - 89481' ' 4 - 5 WEEKS = 1000 - 01731' ' 5 - 6 WEEKS = 01880 - 813954' ' 6 - 8 WEEKS = 99168 - 453915' ' 8 - 12 WEEKS = 78304 - 753473' Performed By: #### 2 [id number] #### [facility] [address] [place] [address] CHEMISTRYOrdered By: SYSTEM SYSTEM on 03-01-2024 HCG.beta [...] 3 - 4 WEEKS = 500 - 11095' ' 4 - 5 WEEKS = 1000 - 57563' ' 5 - 6 WEEKS = 22279 - 612293' ' 6 - 8 WEEKS = 47072 - 693022' ' 8 - 12 WEEKS = 29180 - 362838' [facility] [place] 02-27-2024 HCG.beta subunit Qn 268 m[IU]/mL High 1-3 Fis [facility] Comment on above: Result Comment: 'F N ON < 1 - 3' ' 0.2 - 1 WEEK = 5 TO 50' ' 1 - 2 WEEKS = 50 - 500' ' 2 - 3 WEEKS = 100 - 5000' ' 3 - 4 WEEKS = 500 - 70852' ' 4 - 5 WEEKS = 1000 - 32302' ' 5 - 6 WEEKS = 69059 - 759778' ' 6 - 8 WEEKS = 54763 - 074045' ' 8 - 12 WEEKS = 62936 - 220028' Performed By: #### 2 [id number] #### [facility] [address] [place] [address] [facility] TORN Telephone (Lazy AngelNANI) -- MADHU [id number]) 1985 F Date Time Provider Department 02/27/24 [...] Fully Assessed Reason for Visit: Patient Question [[id number]] Prescriptions as of 02/28/2024 - enoxaparin (LOVENOX) [...] Status:Closed by NAGA JOHNSON on 02/28/24 Normal [facility]-25-2024 HCG.beta subunit Qn 123 m[IU]/mL High 1-3 Fis [facility] Comment on above: Result Comment: 'F N ON < 1 - 3' ' 0.2 - 1 WEEK = 5 TO 50' ' 1 - 2 WEEKS = 50 - 500' ' 2 - 3 WEEKS = 100 - 5000' ' 3 - 4 WEEKS = 500 - 84515' ' 4 - 5 WEEKS = 1000 - 73347' ' 5 - 6 WEEKS = 57360 - 688367' ' 6 - 8 WEEKS = 21789 - 162767' ' 8 - 12 WEEKS = 95058 - 264541' Performed By: #### 2 [id number] #### [facility] [address] [place] [address] CHEMISTRYOrdered By: SYSTEM SYSTEM on 02-25-2024 HCG.beta [...] 3 - 4 WEEKS = 500 - 46164' ' 4 - 5 WEEKS = 1000 - 86520' ' 5 - 6 WEEKS = 04599 - 683488' ' 6 - 8 WEEKS = 03664 - 797714' ' 8 - 12 WEEKS = 77380 - 559368' [id number] 02-25-2024 HbA1c (Bld) [Mass fraction] 6.0 % High <=5.9 [facility] Comment on above: Performed By: #### 7 [id number] #### [facility] [address] [place] [address] HIV Screen 4th Generation wR fxon 02-24-2024 HIV 1+2 Ab+HIV1 p24 Ag IA Ql Non-Reactive Invalid Interpretation Code Non Reactive [facility] Comment on above: Result Comment: HIV- 1/HIV-2 antibodies and HIV-1 p24 antigen were NOT detected. There is no laboratory evidence of HIV infection. HIV Negative Performed at: [facility] [id number] PhD Jd Montano Performed By: #### 9 [id number] #### [facility] [address] [place] [address] BhCG Quanton 02-23-2024 HCG.beta subunit Qn 52 m[IU]/mL High 1-[address] [facility] Comment on above: Result Comment: 'F N ON < 1 - 3' ' 0.2 - 1 WEEK = 5 TO 50' ' 1 - 2 WEEKS = 50 - 500' ' 2 - 3 WEEKS = 100 - 5000' ' 3 - 4 WEEKS = 500 - 14281' ' 4 - 5 WEEKS = 1000 - 52821' ' 5 - 6 WEEKS = 69130 - 240042' ' 6 - 8 WEEKS = 11538 - 240223' ' 8 - 12 WEEKS = 13802 - 159673' Performed By: #### 2 [id number] #### [facility] [address] [place] [address] CHEMISTRYOrdered By: SYSTEM SYSTEM on 02-23-2024 Cholesterol [...] 3 - 4 WEEKS = 500 - 05954' ' 4 - 5 WEEKS = 1000 - 61125' ' 5 - 6 WEEKS = 84743 - 176620' ' 6 - 8 WEEKS = 08866 - 405290' ' 8 - 12 WEEKS = 91242 - 703224' Triglyceride [Mass/Vol] 212 mg/dL High <=149mg/dL Remisol Chem TSH Qn 5.68 m[IU]/L High 0.34 - 5.60 mcIU/mL Remisol Chem CHEMISTRYOrdered By: Chelsey Price on 02-23-2024 HbA1c (Bld) [Mass fraction] 5.9 % Normal <=5.9% [facility] ChemAutoSS [id number] 02-23-2024 HbA1c (Bld) [Mass fraction] 5.9 % Normal <=5.9 [facility] Comment on above: Performed By: #### 7 [id number] #### [facility] [address] [place] [address] Lipid Panelon 02-23-2024 Cholesterol [Mass/Vol] 225 mg/dL High 120-200 [facility] Comment on above: Performed By: #### 2 [id number] #### [facility] [address] [place] [address] Cholesterol in HDL [Mass/Vol] 40 mg/dL Invalid Interpretation Code [facility] Comment on above: Result Comment: '>= 60 LOW RISK' '<= 40 HIGH RISK' Performed By: #### 2 [id number] #### [facility] [address] [place] [address] Cholesterol in LDL [Mass/Vol] 171 mg/dL High <=129 [facility] Comment on above: Performed By: #### 2 [id number] #### [facility] [address] [place] [address] Cholesterol in VLDL [Mass/Vol] 42 mg/dL High 7-40 [facility] Comment on above: Performed By: #### 2 [id number] #### [facility] [address] [place] [address] Triglyceride [Mass/Vol] 212 mg/dL High <=149 [facility] Comment on above: Performed By: #### 2 321835 #### [facility] [address] [place] [address] TSHon 02-23-2024 TSH Qn 5.68 m[IU]/L High 0.34-5.60 [facility] Comment on above: Performed By: #### 2 [id number] #### [facility] [address] [place] [address] Ambulatory Visit Summaryon 1 Ambulatory Visit Summary [...] EST With: Evans CASAS DO, FAAFP Where: [facility] [address] [place] [address]- You Need to Schedule the Following Appointments Follow Up with Evans CASAS DO, FAAFP, FAM, PED When: In 3 months Where: [address] [place] [address]- You Need to Complete the [...] marlee (more content not included)... Normal [facility] Medicine Office/Clini c Noteon 02-05-2024 Family [...] 40 mg subcu, continue to follow-up with card feeder 5. Gestational diabetes (O24.419: Gestational diabetes mellitus in , unspecified control) Metformin 500 mg daily XR tabs 2/day per HISTOLOGIC TECHNICIAN Ordered: HgbA1c HgbA1c HgbA1c HgbA1c 6. Well [...] 30 minutes. Follow-up With When Contact Information PRAVEEN RESENDEZ FAAFP, Evans Tony, CHRIS, PED In 3 months [address] [facility], [address] [place] [phone] Additional Instructions: Patient Education Acute Bronchitis, Adult Problem List/Past Medical History Ongoing Acute (more content not included)... Normal [facility] Comment on above: Result Comment: Elec tronically [...] Community acquired pneumonia [facility]: [facility] 1985 New azithromycin (azithromycin 250 mg Tab 5-day Dose Pack (Z-Jonny)) 1 Packets By Mouth As Directed Community acquired pneumonia Duration: 5 Days as directed on package labeling [facility] Unchanged enoxaparin (Lovenox 40 mg/ 0.4 [...] physician if questions or concerns Pharmacy Information [facility] [address] [place] [phone] Allergies Milk Products (Illness) ciprofloxacin (Numbness and [...] choosing us for your care. Normal [facility] Medicine Office/Clini c Noteon 02-02-2024 Family [...] a 38 Years White Female presenting to [facility] with body aches and productive cough [...] puff(s), Inhalation, q6hr, 1 EA, Refill(s) 5, [facility] 1985, 168, cm, 02/02/24 14:43:00 EDT, Height/Length Dosing, 101.1, kg, 02/02/24 14:43:00 EDT, Weight Dosing azithromycin, = 1 packet(s), Oral, As Directed, as directed on package labeling, X 5 day(s), # 6 tab(s), Refills(s) 0, Pharmacy: [facility] 1985, 168, cm, 02/02/24 14:43:00 EDT, [...] Bernstein MD, FAM, MED Only if needed [address] [place] [phone]- [phone] Additional Instructions: Problem List/Past Medical History Ongoing [...] 2000 [employer] (more content not included)... Normal [facility] Comment on above: Result Comment: Elec tronically Signed By: Anni Bernstein MD\.br\Date and Time Signed: 02/02/24 15:03 EDT CBC W Auto Differential pane l (Bld)on 01-02-2024 Basophils (Bld) [#/Vol] 10*3/uL Normal <0.11 [facility] Comment on above: Order Comment: Speci men Type: BLOOD SPECIMEN Ordering Facility: [facility] Address: [address] [place] [address] Performed By: #### 5 0190-8, 9, 2275-07, 2283-11 #### [facility] CLIA [id number] [address] [place] [address] [place] Basophils/100 WBC (Bld) 0.3 % Normal [facility] Comment on above: Order Comment: Speci men Type: BLOOD SPECIMEN Ordering Facility: [facility] Address: [address] [place] [address] Performed By: #### 5 0190-8, 9, 2275-07, 2283-11 #### [facility] CLIA [id number] [address] [place] [address] [place] Differential cell count method Nom (Bld) Auto Normal [facility] Comment on above: Order Comment: Speci men Type: BLOOD SPECIMEN Ordering Facility: [facility] Address: [address] [place] [address] Performed By: #### 5 0190-8, 2131-12, 2275-07, 2283-11 #### [facility] CLIA [id number] [address] [place] [address] [place] Eosinophils (Bld) [#/Vol] 0.07 10*3/uL Normal <0.46 [facility] Comment on above: Order Comment: Speci men Type: BLOOD SPECIMEN Ordering Facility: [facility] Address: [address] [place] [address] Performed By: #### 5 0190-8, 2131-12, 2275-07, 2283-11 #### [facility] CLIA [id number] [address] [place] [address] [place] Eosinophils/100 WBC (Bld) 0.9 % Normal [facility] Comment on above: Order Comment: Speci men Type: BLOOD SPECIMEN Ordering Facility: [facility] Address: [address] [place] [address] Performed By: #### 5 0190-8, 2131-12, 2275-07, 2283-11 #### [facility] CLIA [id number] [address] [place] [address] [place] Erythrocyte distribution width (RBC) [Ratio] 13.3 % Normal 11.5-15.0 [facility] Comment on above: Order Comment: Speci men Type: BLOOD SPECIMEN Ordering Facility: [facility] Address: [address] [place] [address] Performed By: #### 5 0190-8, 2131-12, 2275-07, 2283-11 #### [facility] CLIA [id number] [address] [place] [address] [place] Hematocrit (Bld) [Volume fraction] 38.5 % Normal 36.0-46.0 [facility] Comment on above: Order Comment: Speci men Type: BLOOD SPECIMEN Ordering Facility: [facility] Address: [address] [place] [address] Performed By: #### 5 0190-8, 2131-12, 2275-07, 2283-11 #### [facility] CLIA [id number] [address] [place] [address] [place] Hemoglobin (Bld) [Mass/Vol] 13.6 g/dL Normal 11.5-15.5 [facility] Comment on above: Order Comment: Speci men Type: BLOOD SPECIMEN Ordering Facility: [facility] Address: [address] [place] [address] Performed By: #### 5 0190-8, 9, 2275-07, 2283-11 #### [facility] CLIA [id number] [address] [place] [address] [place] Immature granulocytes (Bld) [#/Vol] 0.03 10*3/uL Normal <0.10 [facility] Comment on above: Order Comment: Speci men Type: BLOOD SPECIMEN Ordering Facility: [facility] Address: [address] [place] [address] Performed By: #### 5 0190-8, 2131-12, 2275-07, 2283-11 #### [facility] CLIA [id number] [address] [place] [address] [place] Immature granulocytes/100 WBC (Bld) 0.4 % Normal [facility] Comment on above: Order Comment: Speci men Type: BLOOD SPECIMEN Ordering Facility: [facility] Address: [address] [place] [address] Performed By: #### 5 0190-8, 9, 2275-07, 2283-11 #### [facility] CLIA [id number] [address] [place] [address] [place] Lymphocytes (Bld) [#/Vol] 3.06 10*3/uL Normal 1.00-4.00 [facility] Comment on above: Order Comment: Speci men Type: BLOOD SPECIMEN Ordering Facility: [facility] Address: [address] [place] [address] Performed By: #### 5 0190-8, 9, 2275-07, 2283-11 #### [facility] CLIA [id number] [address] [place] [address] [place] Lymphocytes/100 WBC (Bld) 39.0 % Normal [facility] Comment on above: Order Comment: Speci men Type: BLOOD SPECIMEN Ordering Facility: [facility] Address: [address] [place] [address] Performed By: #### 5 0190-8, 9, 4, 2283-11 #### [facility] CLIA [id number] [address] [place] [address] [place] MCH (RBC) [Entitic mass] 30.8 pg Normal 26.0-34.0 [facility] Comment on above: Order Comment: Speci men Type: BLOOD SPECIMEN Ordering Facility: [facility] Address: [address] [place] [address] Performed By: #### 5 0190-8, 2131-12, 2275-07, 2283-11 #### [facility] CLIA [id number] [address] [place] [address] [place] MCHC (RBC) [Mass/Vol] 35.3 g/dL Normal 30.5-36.0 [facility] Comment on above: Order Comment: Speci men Type: BLOOD SPECIMEN Ordering Facility: [facility] Address: [address] [place] [address] Performed By: #### 5 0190-8, 9, 2275-07, 2283-11 #### [facility] CLIA [id number] [address] [place] [address] [place] MCV (RBC) [Entitic vol] 87.3 fL Normal 80.0-100.0 [facility] Comment on above: Order Comment: Speci men Type: BLOOD SPECIMEN Ordering Facility: [facility] Address: [address] [place] [address] Performed By: #### 5 0190-8, 9, 2275-07, 2283-11 #### [facility] CLIA [id number] [address] [place] [address] [place] Monocytes (Bld) [#/Vol] 0.50 10*3/uL Normal <0.87 [facility] Comment on above: Order Comment: Speci men Type: BLOOD SPECIMEN Ordering Facility: [facility] Address: [address] [place] [address] Performed By: #### 5 0190-8, 9, 2275-4, 8 #### [facility] CLIA [id number] [address] [place] [address] [place] Monocytes/100 WBC (Bld) 6.4 % Normal [facility] Comment on above: Order Comment: Speci men Type: BLOOD SPECIMEN Ordering Facility: [facility] Address: [address] [place] [address] Performed By: #### 5 0190-8, 9, 2275-4, 8 #### [facility] CLIA [id number] [address] [place] [address] [place] Neutrophils (Bld) [#/Vol] 4.17 10*3/uL Normal 1.45-7.50 [facility] Comment on above: Order Comment: Speci men Type: BLOOD SPECIMEN Ordering Facility: [facility] Address: [address] [place] [address] Performed By: #### 5 0190-8, 9, 2275-4, 8 #### [facility] CLIA [id number] [address] [place] [address] [place] Neutrophils/100 WBC (Bld) 53.0 % Normal [facility] Comment on above: Order Comment: Speci men Type: BLOOD SPECIMEN Ordering Facility: [facility] Address: [address] [place] [address] Performed By: #### 5 0190-8, 9, 2275-4, 2283-8 #### [facility] CLIA [id number] [address] [id number] [address] [place] Nucleated RBC (Bld) [#/Vol] 10*3/uL Normal <0.01 [facility] Comment on above: Order Comment: Speci men Type: BLOOD SPECIMEN Ordering Facility: [facility] Address: [address] [place] [address] Performed By: #### 5 0190-8, 2131-9, 2275-4, 8 #### [facility] CLIA [id number] [address] [place] [address] [place] Nucleated RBC/100 WBC (Bld) [Ratio] 0.0 /100 WBC Normal [facility] Comment on above: Order Comment: Speci men Type: BLOOD SPECIMEN Ordering Facility: [facility] Address: [address] [place] [address] Performed By: #### 5 0190-8, 2131-9, 4, 8 #### [facility] CLIA [id number] [address] [place] [address] [place] Platelet mean volume (Bld) [Entitic vol] 9.8 fL Normal 9.0-12.7 [facility] Comment on above: Order Comment: Speci men Type: BLOOD SPECIMEN Ordering Facility: [facility] Address: [address] [place] [address] Performed By: #### 5 0190-8, 2131-9, 4, 8 #### [facility] CLIA [id number] [address] [place] [address] [place] Platelets (Bld) [#/Vol] 330 10*3/uL Normal 150-400 [facility] Comment on above: Order Comment: Speci men Type: BLOOD SPECIMEN Ordering Facility: [facility] Address: [address] [place] [address] Performed By: #### 5 0190-8, 2131-9, 2275-4, 8 #### [facility] CLIA [id number] [address] [place] [address] [place] RBC (Bld) [#/Vol] 4.41 10*6/uL Normal 3.90-5.20 [facility] Comment on above: Order Comment: Speci men Type: BLOOD SPECIMEN Ordering Facility: [facility] Address: [address] [place] [address] Performed By: #### 5 0190-8, 2-9, 6-4, 4-8 #### [facility] CLIA [id number] [address] [place] [address] [place] WBC (Bld) [#/Vol] 7.85 10*3/uL Normal 3.70-11.00 [facility] Comment on above: Order Comment: Speci men Type: BLOOD SPECIMEN Ordering Facility: [facility] Address: [address] [place] [address] Performed By: #### 5 0190-8, 2-9, 6-4, 2283-8 #### [facility] CLIA [id number] [address] [place] [address] [place] CNOVSPon 01-02-2024 CNOVSP Visit (SP) Office ([facility]) -- MADHU RENDON ([id number]) 1985 F Date Time Provider Department 01/02/24 1:45 PM SALVADOR CALIX During your visit today, we recorded the following information about you: Temperature Pulse Respiration Blood pressure 97.1 degrees 91/minute 16/minute 128/81 Weight Height Last Period 102.7 kg 1.677 m 12/22/23 Salvador Calix MD 01/04/2024 12:54 PM Signed NAME: Madhu Rendon CLINIC NO.: [id number] DATE OF SERVICE: January 02, 2024 (Levon) [...] later in 2018. These were found in [place], [place]. I don't have access to these [...] a target-like rash shortly before presenting to [facility] in 2016 with headaches and was diagnosed [...] soon. When she had a stroke in [place], she had symptoms up to a month [...] weak, uri (more content not included)... Normal [facility] CNPNon 01-02-2024 CNPN Telephone ([facility]) -- JUSTICEMADHU ([id number]) 1985 F Date Time Provider Department 01/02/24 [facility] During your visit today, we recorded [...] on, along with call back number on [employer]. Valeri aYn RN Allergies As of Date: 01/02/2024 Noted [...] Status:Closed by VALERI YAN on 01/07/24 Normal [facility] Comprehensive metabolic 2000 panelon 01-02-2024 Albumin [Mass/Vol] 4.9 g/dL Normal 3.9-4.9 [facility] Comment on above: Order Comment: Cesar redd Type: BLOOD SPECIMEN [facility] Address: [address] [place] [address] Performed By: #### 5 0190-8, 2132-9, 2276-4, 2284-8 #### [facility] CLIA [id number] [address] [place], [place] [address] [address] [place] ALP [Catalytic activity/Vol] 71 U/L Normal 34-123 [facility] Comment on above: Order Comment: Cesar redd Type: BLOOD SPECIMEN Ordering Facility: [facility] Address: [address] [place] [address] Performed By: #### 5 0190-8, 9, 2275-4, 8 #### [facility] CLIA [id number] [address] [place] [address] [place] ALT [Catalytic activity/Vol] 22 U/L Normal 7-38 [facility] Comment on above: Order Comment: Speci men Type: BLOOD SPECIMEN Ordering Facility: [facility] Address: [address] [place] [address] Performed By: #### 5 0190-8, 9, 2275-4, 8 #### [facility] CLIA [id number] [address] [place] [address] [place] Anion gap [Moles/Vol] 12 mmol/L Normal 8-15 [facility] Comment on above: Order Comment: Speci men Type: BLOOD SPECIMEN Ordering Facility: [facility] Address: [address] [place] [address] Performed By: #### 5 0190-8, 9, 4, 8 #### [facility] CLIA [id number] [address] [place] [address] [place] AST [Catalytic activity/Vol] 18 U/L Normal 13-35 [facility] Comment on above: Order Comment: Speci men Type: BLOOD SPECIMEN Ordering Facility: [facility] Address: [address] [place] [address] Performed By: #### 5 0190-8, 9, 4, 8 #### [facility] CLIA [id number] [address] [place] [address] [place] Bilirubin [Mass/Vol] 0.3 mg/dL Normal 0.2-1.3 [facility] Comment on above: Order Comment: Speci men Type: BLOOD SPECIMEN Ordering Facility: [facility] Address: [address] [place] [address] Performed By: #### 5 0190-8, 9, 2275-4, 2283-11 #### [facility] CLIA [id number] [address] [place] [address] [place] Calcium [Mass/Vol] 9.9 mg/dL Normal 8.5-10.2 [facility] Comment on above: Order Comment: Speci men Type: BLOOD SPECIMEN Ordering Facility: [facility] Address: [address] [place], [place] [id number] Performed By: #### 5 0190-8, 9, 4, 2283-11 #### [facility] CLIA [id number] [address] [place] [address] [place] Chloride [Moles/Vol] 100 mmol/L Normal 98-107 [facility] Comment on above: Order Comment: Speci men Type: BLOOD SPECIMEN Ordering Facility: [facility] Address: [address] [place] [address] Performed By: #### 5 0190-8, 9, 4, 2283-11 #### [facility] CLIA [id number] [address] [place] [address] [place] CO2 [Moles/Vol] 24 mmol/L Normal 22-30 [facility] Comment on above: Order Comment: Speci men Type: BLOOD SPECIMEN Ordering Facility: [facility] Address: [address] [place] [address] Performed By: #### 5 0190-8, 9, 4, 2283-11 #### [facility] CLIA [id number] [address] [place] [address] [place] Creatinine [Mass/Vol] 0.84 mg/dL Normal 0.58-0.96 [facility] Comment on above: Order Comment: Speci men Type: BLOOD SPECIMEN Ordering Facility: [facility] Address: [address] [place] [address] Performed By: #### 5 0190-8, 2131-9, 2275-4, 2283-11 #### [facility] CLIA [id number] [address] [place] [address] [place] Creatinine and Glomerular filtration rate.predicted panel (S/P/Bld) 91 mL/min/1.73m??? Normal >=60 [facility] Comment on above: Order Comment: Cesar redd Type: BLOOD SPECIMEN [facility] Address: [address] [place] [address] Result Comment: Hawa mated Glomerular Filtration Rate [...] #### 5 0190-8, 9, 2275-07, 2283-11 #### [facility] CLIA [id number] [address] [place] [address] [place] Glucose [Mass/Vol] 84 mg/dL Normal 74-99 [facility] Comment on above: Order Comment: Cesar redd Type: BLOOD SPECIMEN [facility] Facility: [facility] Address: [address] [place] [address] Result Comment: The [place] [employer] (ADA) provides guidance for cutoff [...] Standards of Medical Care in Diabetes 2016, [place] [employer]. Diabetes Care. 2016.39(Suppl 1). Performed By: #### 5 0190-8, 9, 2275-4, 8 #### [facility] CLIA [id number] [address] [place] [address] [place] Potassium [Moles/Vol] 3.5 mmol/L Low 3.7-5.1 [facility] Comment on above: Order Comment: Speci men Type: BLOOD SPECIMEN [facility]ing Facility: [facility] Address: [address] [place] [address] Performed By: #### 5 0190-8, 9, 2275-4, 8 #### [facility] CLIA [id number] [address] [place] [address] [place] Protein [Mass/Vol] 7.3 g/dL Normal 6.3-8.0 [facility] Comment on above: Order Comment: Speci men Type: BLOOD SPECIMEN [facility]ing Facility: [facility] Address: [address] [place] [address] Performed By: #### 5 0190-8, 9, 4, 8 #### [facility] CLIA [id number] [address] [place] [address] [place] Sodium [Moles/Vol] 136 mmol/L Normal 136-144 [facility] Comment on above: Order Comment: Speci men Type: BLOOD SPECIMEN [facility]ing Facility: [facility] Address: [address] [place] [address] Performed By: #### 5 0190-8, 9, 4, 8 #### [facility] CLIA [id number] [address] [place] [address] [place] Urea nitrogen [Mass/Vol] 8 mg/dL Normal 7-21 [facility] Comment on above: Order Comment: Speci men Type: BLOOD SPECIMEN [facility]ing [facility]: [facility] Address: [address] [place] [address] Performed By: #### 5 0190-8, 9, 4, 2283-11 #### [facility] CLIA [id number] [address] [place] [address] [place] [facility] Ferritin [Mass/Vol] 261.0 ng/mL High 14.7-205.1 [facility] Comment on above: Order Comment: Speci men Type: BLOOD SPECIMEN [facility] Address: [address] [place] [address] Performed By: #### 5 0190-8, 9, 2275-07, 2283-11 #### [facility] CLIA [id number] [address] [place] [address] [place] Folate SerP-[facility] 01-02-20 Folate [Mass/Vol] 17.2 ng/mL Normal >4.7 [facility] Comment on above: Order Comment: Speci men Type: BLOOD SPECIMEN [facility] Address: [address] [place] [address] Performed By: #### 5 0190-8, 9, 2275-07, 2283-11 #### [facility] CLIA [id number] [address] [place] [address] [place] Iron and Iron binding capaci ty panelon 01-02-2024 Iron [Mass/Vol] 66 ug/dL Normal 41-186 [facility] Comment on above: Order Comment: Speci men Type: BLOOD SPECIMEN [facility] Address: [address] [place] [address] Performed By: #### 5 0190-8, 9, 2275-07, 2283-11 #### [facility] CLIA [id number] [address] [place] [address] [place] Iron binding capacity [Mass/Vol] 354 ug/dL Normal 232-386 [facility] Comment on above: Order Comment: Speci men Type: BLOOD SPECIMEN [facility]ing Facility: [facility] Address: [address] [place] [address] [place] [address] Performed By: #### 5 0190-8, 2131-12, 2275-07, 2283-11 #### [facility] CLIA [id number] [address] [place] [address] [place] Iron/TIBC [Molar ratio] 18.6 % Normal 15.0-57.0 [facility] Comment on above: Order Comment: Speci men Type: BLOOD SPECIMEN [facility]ing [facility] Address: [address] [place] [address] Performed By: #### 5 0190-8, 2131-12, 2275-07, 2283-11 #### [facility] CLIA [id number] [address] [place] [address] [place] Vit B12 [facility] 024 Cobalamin (Vitamin B12) [Mass/Vol] 460 pg/mL Normal 232-1245 [facility] Comment on above: Order Comment: Speci men Type: BLOOD SPECIMEN [facility] Address: [address] [place] [address] Performed By: #### 5 0190-8, 2131-12, 2275-07, 2283-11 #### [facility] CLIA [id number] [address] [place] [address] [place] Sisi 12-17-2023 TORN Telephone (ROD) -- MADHU RENDON ([id number]) 1985 F Date Time Provider Department 12/17/23 [...] Status:Closed by NAGA JOHNSON on 12/17/23 Normal [facility] MRI Brain w/o Contraston MRI Brain [...] soft tissues are unremarkable. Report Ordering Provider: Moncia Saba FINAL REPORT Dictated: 12/11/2023 3:11 pm Pablo Barker MD Signed (Electronic Signature): 12/11/2023 3:11 pm Signed by: Pablo Barker MD Transcribed by: LINDY Technologist: ALEXSANDRA Normal [facility] Cortisolon 12-08-2023 Cortisol [Mass/Vol] 12.5 microgram/dL Invalid Interpretation Code 6.2-19.4 [facility] Comment on above: Result Comment: Yolanda davis Note: The reference interval and flagging for this test is for an AM collection. If this is a PM collection please use: Cortisol PM: 2.3-11.9 Performed at: [facility] [address] [id number] PhD Jd Montano Performed By: #### 2 786255 #### [facility] [address] [place] [address] T3 Freeon 12-08-2023 Free T3 [Mass/Vol] 2.5 pg/mL Invalid Interpretation Code 2.0-4.4 [facility] Comment on above: Result Comment: Perf ormed at: [facility] [address] [id number] PhD Jd Montano Performed By: #### 2 011927 #### [facility] [address] [place] [address] Amylaseon 12-06-2023 Amylase [Catalytic activity/Vol] 38 U/L Normal 25-157 [facility] Comment on above: Performed By: #### 2 378748 #### [facility] [address] [place] [address] CHEMISTRYOrdered By: SYSTEM SYSTEM on 12-06-2023 Amylase [...] 12-06-2023 CRP [Mass/Vol] 0.2 mg/dL Normal <=1.9 [facility] Comment on above: Performed By: #### 2 [id number] #### [facility] [address] [place] [address] Free T4on 12-06-2023 Free T4 [Mass/Vol] 0.58 ng/dL Normal 0.58-1.64 [facility] Comment on above: Performed By: #### 2 115117 #### [facility] [address] [place] [address] HEMATOLOGYOrdered By: Isha Zheng on 12-06-2023 ESR (Bld) [Velocity] 18 mm/h Normal 0 - 34 mm/hr [facility] HemeAutoSS Sed Rate Automatedon 024 ESR (Bld) [Velocity] 18 mm/h Normal 0-[address] [facility] Comment on above: Performed By: #### 1 [id number] #### [facility] [address] [place] [address] TSHon 12-06-2023 TSH Qn 4.97 m[IU]/L Normal 0.34-5.60 [facility] Comment on above: Performed By: #### 2 688317 #### [facility] [address] [place] [address] Vit B12on 12-06-2023 Cobalamin (Vitamin B12) [Mass/Vol] 328 pg/mL Normal 50-1500 [facility] Comment on above: Performed By: #### 2 142339 #### [facility] [address] [place] [address] CNPNon 11-15-2023 CNPN Telephone (HEMTSA) -- JUSTICEMADHU ([id number]) 1985 F Date Time Provider Department 11/15/23 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 Pre-diabetes (R73.03: Prediabetes) Last A1c Continue metformin Nutrition: - Maintain optimal weight - Calorie restriction - Plant-based diet; high polyunsatur (more content not included)... Normal [facility] Comment on above: Result Comment: Elec tronically Signed By: Monica Keyes\.br\Date and Time Signed: 11/09/23 15:56 EDT Sisi 11-05-2023 [facility] MADHU RENDON ([id number]) 1985 F Date Time Provider Department 11/05/23 [facility] During your visit today, we recorded the following information about you: Harjit Haskins 11/05/2023 12:47 PM Signed ----- Message from Ngaa Johnson RN sent at 11/05/2023 11:53 AM EDT ----- ----- Message ----- From: Salvador Calix MD Sent: 11/05/2023 11:33 AM EDT To: [facility] Triage Pool; [facility] Clerical Pool Perry Isidro - looks like [...] Clay MD 11/05/2023 5:39 PM Signed Thanks Brit - will forward to Naga. [...] Status:Closed by NAGA JOHNSON on 11/06/23 Normal [facility] 25(OH)D3 SerPl-mCncon 2023 25-hydroxyvitamin D3 [Mass/Vol] 30.5 ng/mL Low 31.0-80.0 [facility] Comment on above: Order Comment: Speci men Type: BLOOD SPECIMEN [facility] Address: [address] [place] [address] Performed By: #### 5 0190-8, 9, 2275-07, 2283-11 #### [facility] CLIA [id number] [address] [place] [address] [place] CBC W Auto Differential pane l (Bld)on 10-29-2023 Basophils (Bld) [#/Vol] 0.05 10*3/uL Normal <0.11 [facility] Comment on above: Order Comment: Speci men Type: BLOOD SPECIMEN [facility]ing [facility] Address: [address] [place] [address] Performed By: #### 5 0190-8, 2131-12, 2275-07, 2283-11 #### [facility] CLIA [id number] [address] [place] [address] [place] Basophils/100 WBC (Bld) 0.6 % Normal [facility] Comment on above: Order Comment: Speci men Type: BLOOD SPECIMEN [facility]ing [facility]: [facility] Address: [address] [place] [address] Performed By: #### 5 0190-8, 2131-12, 2275-07, 2283-11 #### [facility] CLIA [id number] [address] [place] [address] [place] Differential cell count method Nom (Bld) Auto Normal [facility] Comment on above: Order Comment: Speci men Type: BLOOD SPECIMEN [facility]ing [facility]: [facility] Address: [address] [place] [address] Performed By: #### 5 0190-8, 2131-12, 2275-07, 2283-11 #### [facility] CLIA [id number] [address] [place] [address] [place] Eosinophils (Bld) [#/Vol] 0.06 10*3/uL Normal <0.46 [facility] Comment on above: Order Comment: Speci men Type: BLOOD SPECIMEN [facility] Address: [address] [place] [address] Performed By: #### 5 0190-8, 9, 2275-07, 2283-11 #### [facility] CLIA [id number] [address] [place] [address] [place] Eosinophils/100 WBC (Bld) 0.8 % Normal [facility] Comment on above: Order Comment: Speci men Type: BLOOD SPECIMEN [facility]ing [facility]: [facility] Address: [address] [place] [address] Performed By: #### 5 0190-8, 9, 2275-07, 2283-11 #### [facility] CLIA [id number] [address] [place] [address] [place] Erythrocyte distribution width (RBC) [Ratio] 13.2 % Normal 11.5-15.0 [facility] Comment on above: Order Comment: Speci men Type: BLOOD SPECIMEN [facility]ing [facility] Address: [address] [place] [address] Performed By: #### 5 0190-8, 9, 2275-07, 2283-11 #### [facility] CLIA [id number] [address] [place] [address] [place] Hematocrit (Bld) [Volume fraction] 39.0 % Normal 36.0-46.0 [facility] Comment on above: Order Comment: Speci men Type: BLOOD SPECIMEN [facility] Address: [address] [place] [address] Performed By: #### 5 0190-8, 9, 2275-07, 2283-11 #### [facility] CLIA [id number] [address] [place] [address] [place] Hemoglobin (Bld) [Mass/Vol] 12.9 g/dL Normal 11.5-15.5 [facility] Comment on above: Order Comment: Speci men Type: BLOOD SPECIMEN [facility]ing [facility] Address: [address] [place] [address] Performed By: #### 5 0190-8, 9, 2275-07, 2283-11 #### [facility] CLIA [id number] [address] [place] [address] [place] Immature granulocytes (Bld) [#/Vol] 10*3/uL Normal <0.10 [facility] Comment on above: Order Comment: Speci men Type: BLOOD SPECIMEN Ordering [facility]: [facility] Address: [address] [place] [address] Performed By: #### 5 0190-8, 2131-12, 2275-07, 2283-11 #### [facility] CLIA [id number] [address] [place] [address] [place] Immature granulocytes/100 WBC (Bld) 0.3 % Normal [facility] Comment on above: Order Comment: Speci men Type: BLOOD SPECIMEN Ordering Facility: [facility] Address: [address] [place] [address] Performed By: #### 5 0190-8, 2131-12, 2275-07, 2283-11 #### [facility] CLIA [id number] [address] [place] [address] [place] Lymphocytes (Bld) [#/Vol] 3.05 10*3/uL Normal 1.00-4.00 [facility] Comment on above: Order Comment: Speci men Type: BLOOD SPECIMEN Ordering [facility] Address: [address] [place] [address] Performed By: #### 5 0190-8, 2131-12, 2275-07, 2283-11 #### [facility] CLIA [id number] [address] [place] [address] [place] Lymphocytes/100 WBC (Bld) 38.3 % Normal [facility] Comment on above: Order Comment: Speci men Type: BLOOD SPECIMEN Ordering Facility: [facility] Address: [address] [place] [address] Performed By: #### 5 0190-8, 2131-12, 2275-07, 2283-11 #### [facility] CLIA [id number] [address] [place] [address] [place] MCH (RBC) [Entitic mass] 29.2 pg Normal 26.0-34.0 [facility] Comment on above: Order Comment: Speci men Type: BLOOD SPECIMEN [facility] Address: [address] [place] [address] Performed By: #### 5 0190-8, 2131-12, 2275-07, 2283-11 #### [facility] CLIA [id number] [address] [place] [address] [place] MCHC (RBC) [Mass/Vol] 33.1 g/dL Normal 30.5-36.0 [facility] Comment on above: Order Comment: Speci men Type: BLOOD SPECIMEN [facility] Address: [address] [place] [address] Performed By: #### 5 0190-8, 2131-12, 2275-07, 2283-11 #### [facility] CLIA [id number] [address] [place] [address] [place] MCV (RBC) [Entitic vol] 88.2 fL Normal 80.0-100.0 [facility] Comment on above: Order Comment: Speci men Type: BLOOD SPECIMEN [facility] Address: [address] [place] [address] Performed By: #### 5 0190-8, 9, 2275-4, 8 #### [facility] CLIA [id number] [address] [place] [address] [place] Monocytes (Bld) [#/Vol] 0.63 10*3/uL Normal <0.87 [facility] Comment on above: Order Comment: Speci men Type: BLOOD SPECIMEN [facility] Address: [address] [place] [address] Performed By: #### 5 0190-8, 9, 4, 2283-11 #### [facility] CLIA [id number] [address] [place] [address] [place] Monocytes/100 WBC (Bld) 7.9 % Normal [facility] Comment on above: Order Comment: Speci men Type: BLOOD SPECIMEN [facility] Address: [address] [place] [address] Performed By: #### 5 0190-8, 9, 4, 8 #### [facility] CLIA [id number] [address] [place] [address] [place] Neutrophils (Bld) [#/Vol] 4.15 10*3/uL Normal 1.45-7.50 [facility] Comment on above: Order Comment: Speci men Type: BLOOD SPECIMEN [facility] Address: [address] [place] [address] Performed By: #### 5 0190-8, 9, 4, 2283-11 #### [facility] CLIA [id number] [address] [place] [address] [place] Neutrophils/100 WBC (Bld) 52.1 % Normal [facility] Comment on above: Order Comment: Speci men Type: BLOOD SPECIMEN Ordering Facility[facility] Address: [address] [place] [address] Performed By: #### 5 0190-8, 2131-9, 2275-4, 2283-8 #### [facility] CLIA [id number] [address] [place] [address] [place] Nucleated RBC (Bld) [#/Vol] 10*3/uL Normal <0.01 [facility] Comment on above: Order Comment: Speci men Type: BLOOD SPECIMEN [facility] Address: [address] [place] [address] Performed By: #### 5 0190-8, 2131-9, 2275-4, 8 #### [facility] CLIA [id number] [address] [place] [address] [place] Nucleated RBC/100 WBC (Bld) [Ratio] 0.0 /100 WBC Normal [facility] Comment on above: Order Comment: Speci men Type: BLOOD SPECIMEN Ordering Facility: [facility] Address: [address] [place] [address] Performed By: #### 5 0190-8, 2131-9, 2275-4, 8 #### [facility] CLIA [id number] [address] [place] [address] [place] Platelet mean volume (Bld) [Entitic vol] 9.8 fL Normal 9.0-12.7 [facility] Comment on above: Order Comment: Speci men Type: BLOOD SPECIMEN [facility] Address: [address] [place] [address] Performed By: #### 5 0190-8, 2131-9, 2275-4, 8 #### [facility] CLIA [id number] [address] [place] [address] [place] Platelets (Bld) [#/Vol] 381 10*3/uL Normal 150-400 [facility] Comment on above: Order Comment: Speci men Type: BLOOD SPECIMEN Ordering Facility: [facility] Address: [address] [place] [address] Performed By: #### 5 0190-8, 2131-9, 2275-4, 8 #### [facility] CLIA [id number] [address] [place] [address] [place] RBC (Bld) [#/Vol] 4.42 10*6/uL Normal 3.90-5.20 [facility] Comment on above: Order Comment: Speci men Type: BLOOD SPECIMEN Ordering Facility[facility] Address: [address] [place] [address] Performed By: #### 5 0190-8, 2131-9, 2275-4, 8 #### [facility] CLIA [id number] [address] [place] [address] [place] WBC (Bld) [#/Vol] 7.96 10*3/uL Normal 3.70-11.00 [facility] Comment on above: Order Comment: Speci men Type: BLOOD SPECIMEN [facility]ing [facility] Address: [address] [place] [address] Performed By: #### 5 0190-8, 2131-9, 2275-, 8 #### [facility] CLIA [id number] [address] [place] [address] [place] Calcium.ionized [Moles/Vol]o n 10-29-2023 Calcium.ionized (Bld) [Mass/Vol] 1.29 mmol/L Normal 1.08-1.30 [facility] Comment on above: Order Comment: Speci men Type: BLOOD SPECIMENOrdering Facility: [facility] Address: [address] [place] [address] Performed By: #### 1 995-0 ####[facility] [id number] [place] [address] [place] Calcium.ionized adjusted to pH 7.4 (Bld) [Moles/Vol] 1.25 mmol/L Normal 1.08-1.30 [facility] Comment on above: Order Comment: Speci men Type: BLOOD SPECIMENOrdering Facility: [facility] Address: [address] [place] [address] Performed By: #### 1 995-0 ####[facility] [id number] [place] [id number] [place] Comprehensive metabolic 2000 panelon 10-29-2023 Albumin [Mass/Vol] 4.7 g/dL Normal 3.9-4.9 [facility] Comment on above: Order Comment: Speci men Type: BLOOD SPECIMEN [facility] Address: [address] [place] [address] Performed By: #### 5 0190-8, 9, 2275-07, 2283-11 #### [facility] CLIA [id number] [address] [place] [address] [place] ALP [Catalytic activity/Vol] 77 U/L Normal 34-123 [facility] Comment on above: Order Comment: Speci men Type: BLOOD SPECIMEN [facility] Address: [address] [place] [address] Performed By: #### 5 0190-8, 9, 2275-07, 2283-11 #### [facility] CLIA [id number] [address] [place] [address] [place] ALT [Catalytic activity/Vol] 24 U/L Normal 7-38 [facility] Comment on above: Order Comment: Speci men Type: BLOOD SPECIMEN [facility]ing [facility] Address: [address] [place] [address] Performed By: #### 5 0190-8, 9, 2275-07, 2283-11 #### [facility] CLIA [id number] [address] [place], [place] [id number] [place] Anion gap [Moles/Vol] 12 mmol/L Normal 8-15 [facility] Comment on above: Order Comment: Speci men Type: BLOOD SPECIMEN [facility] Address: [address] [place] [address] Performed By: #### 5 0190-8, 2131-12, 2275-07, 2283-11 #### [facility] CLIA [id number] [address] [place] [address] [place] AST [Catalytic activity/Vol] 20 U/L Normal 13-35 [facility] Comment on above: Order Comment: Speci men Type: BLOOD SPECIMEN Ordering Facility: [facility] Address: [address] [place] [address] Performed By: #### 5 0190-8, 2131-12, 2275-07, 2283-11 #### [facility] CLIA [id number] [address] [place] [address] [place] Bilirubin [Mass/Vol] mg/dL Low 0.2-1.3 [facility] Comment on above: Order Comment: Speci men Type: BLOOD SPECIMEN Ordering Facility: [facility] Address: [address] [place] [address] Performed By: #### 5 0190-8, 2131-12, 2275-07, 2283-11 #### [facility] CLIA [id number] [address] [place] [address] [place] Calcium [Mass/Vol] 9.8 mg/dL Normal 8.5-10.2 [facility] Comment on above: Order Comment: Speci men Type: BLOOD SPECIMEN Ordering Facility: [facility] Address: [address] [place] [address] Performed By: #### 5 0190-8, 2131-12, 2275-07, 2283-11 #### [facility] CLIA [id number] [address] [place] [address] [place] Chloride [Moles/Vol] 102 mmol/L Normal 98-107 [facility] Comment on above: Order Comment: Speci men Type: BLOOD SPECIMEN Ordering Facility: [facility] Address: [address] [place] [address] Performed By: #### 5 0190-8, 2131-12, 2275-07, 2283-11 #### [facility] CLIA [id number] [address] [place] [address] [place] CO2 [Moles/Vol] 23 mmol/L Normal 22-30 [facility] Comment on above: Order Comment: Speci men Type: BLOOD SPECIMEN [facility]ing [facility] Address: [address] [place] [address] Performed By: #### 5 0190-8, 2131-12, 2275-07, 2283-11 #### [facility] CLIA [id number] [address] [place] [address] [place] Creatinine [Mass/Vol] 0.86 mg/dL Normal 0.58-0.96 [facility] Comment on above: Order Comment: Speci men Type: BLOOD SPECIMEN [facility]ing [facility] Address: [address] [place] [address] Performed By: #### 5 0190-8, 2131-12, 2275-07, 2283-11 #### [facility] CLIA [id number] [address] [place] [address] [place] Creatinine and Glomerular filtration rate.predicted panel (S/P/Bld) 89 mL/min/1.73m??? Normal >=60 [facility] Comment on above: Order Comment: Speci men Type: BLOOD SPECIMEN [facility]ing [facility] Address: [address] [place] [address] Result Comment: Hawa mated Glomerular Filtration Rate [...] #### 5 0190-8, 2131-12, 2275-07, 2283-11 #### [facility] CLIA [id number] [address] [place] [address] [place] Glucose [Mass/Vol] 62 mg/dL Low 74-99 [facility] Comment on above: Order Comment: Cesar redd Type: BLOOD SPECIMEN Ordering Facility: [facility] Address: [address] [place] [address] Result Comment: The [place] Diabetes Association (ADA) provides guidance for cutoff [...] Standards of Medical Care in Diabetes 2016, [place] [employer]. Diabetes Care. 2016.39(Suppl 1). Performed By: #### 5 0190-8, 2131-12, 2275-07, 2283-11 #### [facility] CLIA [id number] [address] [place] [address] [place] Potassium [Moles/Vol] 4.4 mmol/L Normal 3.7-5.1 [facility] Comment on above: Order Comment: Cesar redd Type: BLOOD SPECIMEN Ordering Facility[facility] Address: [address] [place] [address] Performed By: #### 5 0190-8, 2131-12, 2275-07, 2283-11 #### [facility] CLIA [id number] [address] [place] [address] [place] Protein [Mass/Vol] 7.5 g/dL Normal 6.3-8.0 [facility] Comment on above: Order Comment: Speci men Type: BLOOD SPECIMEN [facility]ing [facility] Address: [address] [place] [address] Performed By: #### 5 0190-8, 2131-12, 2275-07, 2283-11 #### [facility] CLIA [id number] [address] [place] [address] [place] Sodium [Moles/Vol] 137 mmol/L Normal 136-144 [facility] Comment on above: Order Comment: Speci men Type: BLOOD SPECIMEN [facility]ing [facility] Address: [address] [place] [address] Performed By: #### 5 0190-8, 2131-12, 2275-07, 2283-11 #### [facility] CLIA [id number] [address] [place] [address] [place] Urea nitrogen [Mass/Vol] 10 mg/dL Normal 7-21 [facility] Comment on above: Order Comment: Speci men Type: BLOOD SPECIMEN [facility]ing [facility] Address: [address] [place] [address] Performed By: #### 5 0190-8, 2131-12, 2275-07, 2283-11 #### [facility] CLIA [id number] [address] [place] [address] [place] Ferritin SerPl-mCncon 2023 Ferritin [Mass/Vol] 62.7 ng/mL Normal 14.7-205.1 [facility] Comment on above: Order Comment: Speci men Type: BLOOD SPECIMEN [facility]ing [facility] Address: [address] [place] [address] Performed By: #### 5 0190-8, 2131-12, 2275-07, 2283-11 #### [facility] CLIA [id number] [address] [place] [address] [place] Folate SerPl-mCncon 10-29-19 24 Folate [Mass/Vol] ng/mL Normal >4.7 [facility] Comment on above: Order Comment: Cesar redd Type: BLOOD SPECIMENOrdering Facility: [facility] Address: [address] [place] [address] Result Comment: A re sult of > 20 ng/mL is not necessarily indicative of a pathologic or treatable condition: it reflects a limitation of the test methodology. Assay reference range: 4.8 to 24.2 ng/mL. Suitable for detection of folate deficiency. Reference: Folate III (Folate III) [package insert V 1.0 Montenegrin]. [facility], [place], [place]: February 2015. Performed By: #### 2 132-9, 2284-8, 2731-8 ####[facility] [id number] [place] [address] [place] Iron and Iron binding capaci [facility] 10-29-2023 Iron [Mass/Vol] 51 ug/dL Normal 41-186 [facility] Comment on above: Order Comment: Jenniferi tramaine Type: BLOOD SPECIMEN [facility] Address: [address] [place] [address] Performed By: #### 5 0190-8, 213-9, 2275-4, 8 #### [facility] CLIA [id number] [address] [place] [address] [place] Iron binding capacity [Mass/Vol] 390 ug/dL High 232-386 [facility] Comment on above: Order Comment: Jenniferi men Type: BLOOD SPECIMEN [facility]ing [facility] Address: [address] [place] [address] Performed By: #### 5 0190-8, 9, 4, 8 #### [facility] CLIA [id number] [address] [place] [address] [place] Iron/TIBC [Molar ratio] 13.1 % Low 15.0-57.0 [facility] Comment on above: Order Comment: Speci men Type: BLOOD SPECIMEN [facility] Address: [address] [place] [address] Performed By: #### 5 0190-8, 2132-9, 2276-4, 2283-8 #### [facility] CLIA [id number] [address] [place] [address] [place] PTH-Intact [facility]0 Parathyrin.intact [Mass/Vol] 57 pg/mL Normal 15-65 [facility] Comment on above: Order Comment: Speci men Type: BLOOD SPECIMENOrdering Facility: [facility] Address: [address] [place] [address] Performed By: #### 2 132-9, 2283-8, 2730-8 ####[facility]IA [id number] [address] [place] Vit B12 [facility] 024 Cobalamin (Vitamin B12) [Mass/Vol] 499 pg/mL Normal 232-1245 [facility] Comment on above: Order Comment: Speci men Type: BLOOD SPECIMENOrdering Facility: [facility] Address: [address] [place] [address] Performed By: #### 2 132-9, 2283-8, 8 ####[facility] [id number] [place] [address] [place] Physician Referralon 024 Physician Referral [id number]#[id number] Normal [facility] Ambulatory Visit Summaryon 0 10-23-2023 Ambulatory Visit Summary MADHU RENDON :1985 Visit Date:10/23/2023 Ambulatory Visit Instructions Your Diagnosis Dysfunction of right eustachian tube Nasal polyps Deviated septum BMI 37.0-37.9, adult Obesity Your Care Team Attending Physician - Aidan Urrutiann Delaney Primary Care Physician - Evans CASAS DO, FAAFP This Is Your Medications List ciprofloxacin-dexamethason e otic (Ciprodex 0.3%-0.1% Susp-Otic) enoxaparin (Lovenox 40 mg/0.4 mL Injection) ergocalciferol (Vitamin D) fluticasone nasal (Flonase 0.05 mg/inh Whatley) metformin (MetFORMIN (Eqv-Glucophage XR) 500 mg oral [...] EDT With: Evans CASAS DO, FAAFP Where: [facility] Primary Care Normal [facility] Family Medicine Office/Clini c Noteon 10-23-2023 Family [...] Mouth: mucous membranes pink, moist and intact. [place] posterior oropharynx, no palatal inflammation, uvula midline, [...] 106.2, kg, 10/23/23 16:55:00 EDT, Weight Dosing [facility] External Ambulatory Referral 2. Nasal polyps (J33.9: Nasal polyp, unspecified) pt reported - moved before previous ENT could perform surgery - submitted new referral at this time Ordered: [facility] External Ambulatory Referral 3. Deviated septum (J34.2: Deviated nasal septum) pt reported - moved before previous ENT could perform surgery - see #2 Ordered: [facility] External Ambulatory Referral 4. BMI 37.0-37.9, adult [...] Obesity ( (more content not included)... Normal [facility] Comment on above: Result Comment: Elec tronically [...] specializes in ear, nose, and throat disorders (digital tech, or ENT) for more tests and treatment. [...] Follow these instructions at home: ? Take bstl-ldm-nbxolju and prescription medicines only as told by [...] specializes in ear, nose, and throat disorders (digital tech, or ENT) for more tests and treatment. This information is not intended to replace advice given to you by your health care provider. Make sure you discuss any questions you have with your health care provider. Document Revised: 12/12/2021 Document Reviewed: 12/12/2021 [employer] Patient Education ? 2022 [employer] Nasal Polyps Nasal polyps are growths that [...] not cancer (more content not included)... Normal [facility] CT Abdomen/Pelvis w/o Contra ston 09-29-2023 CT Abdomen/Pelvis w/o Contrast Exam Date/Time: [...] Oral contrast amount in ml's: 0 Normal [facility] B hCG Qualon 09-28-2023 Beta HCG ( test) Ql Negative Normal [facility] Comment on above: Performed By: #### 2 [id number] #### [facility] [address] [place] [address] BMPon 09-28-2023 Anion gap [Moles/Vol] 13 mmol/L Normal 6-16 [facility] Comment on above: Performed By: #### 2 000253 #### [facility] [address] [place] [address] Calcium [Mass/Vol] 9.9 mg/dL Normal 8.9-11.1 [facility] Comment on above: Performed By: #### 2 429788 #### [facility] [address] [place] [address] Chloride [Moles/Vol] 101 mmol/L Normal 101-111 [facility] Comment on above: Performed By: #### 2 148647 #### [facility] [address] [place] [address] CO2 [Moles/Vol] 25 mmol/L Normal 21-31 [facility] Comment on above: Performed By: #### 2 037077 #### [facility] [address] [place] [address] Creatinine [Mass/Vol] 0.9 mg/dL Normal 0.5-1.3 [facility] Comment on above: Performed By: #### 2 878422 #### [facility] [address] [place] [address] Glucose [Mass/Vol] 94 mg/dL Normal 55-199 [facility] Comment on above: Performed By: #### 2 767782 #### [facility] [address] [place] [address] Potassium [Moles/Vol] 3.6 mmol/L Normal 3.5-5.3 [facility] Comment on above: Performed By: #### 2 441372 #### [facility] [address] [place] [address] Sodium [Moles/Vol] 135 mmol/L Normal 135-145 [facility] Comment on above: Performed By: #### 2 108992 #### [facility] [address] [place] [address] Urea nitrogen [Mass/Vol] 8 mg/dL Normal 5-21 [facility] Comment on above: Performed By: #### 2 313763 #### [facility] [address] [place] [address] Urea nitrogen/Creatinine [Mass ratio] 9 No Units Low 10-20 [facility] Comment on above: Performed By: #### 2 052180 #### [facility] [address] [place] [address] CBC w/ Auto Diffon 4 Basophils/100 WBC (Bld) 0.7 % Normal 0.0-2.0 [facility] Comment on above: Performed By: #### 2 263741 #### [facility] [address] [place] [address] Basophils/Leukocytes Auto (Bld) [Pure # fraction] 0.1 E9/L Normal 0.0-0.2 [facility] Comment on above: Performed By: #### 2 988689 #### [facility] [address] [place] [address] Eosinophils (Bld) [#/Vol] 0.0 E9/L Normal 0.0-0.5 [facility] Comment on above: Performed By: #### 2 641350 #### [facility] [address] [place] [address] Eosinophils/100 WBC (Bld) 0.5 % Normal 0.0-8.0 [facility] Comment on above: Performed By: #### 2 162208 #### [facility] [address] [place] [address] Erythrocyte distribution width (RBC) [Ratio] 14.3 % High 10.9-14.2 [facility] Comment on above: Performed By: #### 2 393203 #### [facility] [address] [place] [address] Hematocrit (Bld) [Volume fraction] 39.5 % Normal 34.0-46.0 [facility] Comment on above: Performed By: #### 2 195907 #### [facility] [address] [place] [address] Hemoglobin (Bld) [Mass/Vol] 13.2 g/dL Normal 12.0-16.0 [facility] Comment on above: Performed By: #### 2 026314 #### [facility] [address] [place] [address] Lymphocytes (Bld) [#/Vol] 3.5 E9/L Normal 1.0-4.0 [facility] Comment on above: Performed By: #### 2 688111 #### [facility] [address] [place] [address] Lymphocytes/100 WBC (Bld) 35.6 % Normal 14.0-50.0 [facility] Comment on above: Performed By: #### 2 490559 #### [facility] [address] [place] [address] MCH (RBC) [Entitic mass] 29.3 pg Normal 27.0-34.0 [facility] Comment on above: Performed By: #### 2 261728 #### [facility] [address] [place] [address] MCHC (RBC) [Mass/Vol] 33.5 g/dL Normal 31.4-36.0 [facility] Comment on above: Performed By: #### 2 375642 #### [facility] [address] [place] [address] MCV (RBC) [Entitic vol] 87.4 fL Normal 80.0-100.0 [facility] Comment on above: Performed By: #### 2 768812 #### [facility] [address] [place] [address] Monocytes (Bld) [#/Vol] 0.7 E9/L Normal 0.2-1.0 [facility] Comment on above: Performed By: #### 2 224824 #### [facility] [address] [place] [address] Neutrophils (Bld) [#/Vol] 5.6 E9/L Normal 2.0-7.5 [facility] Comment on above: Performed By: #### 2 145320 #### [facility] [address] [place] [address] Neutrophils/100 WBC (Bld) 56.4 % Normal 36.0-75.0 [facility] Comment on above: Performed By: #### 2 502295 #### [facility] [address] [place] [address] Platelet mean volume (Bld) [Entitic vol] 8.1 fL Normal 6.4-10.8 [facility] Comment on above: Performed By: #### 2 868887 #### [facility] [address] [place] [address] Platelets (Bld) [#/Vol] 360.0 E9/L Normal 150.0-500.0 [facility] Comment on above: Performed By: #### 2 055425 #### [facility] [address] [place] [address] RBC (Bld) [#/Vol] 4.5 E12/L Normal 4.3-5.9 [facility] Comment on above: Performed By: #### 2 294902 #### [facility] [address] [place] [address] WBC corrected for nucl RBC Auto (Bld) [#/Vol] 9.9 E9/L Normal 4.0-11.0 [facility] Comment on above: Performed By: #### 2 659562 #### [facility] [address] [place] [address] CHEMISTRYOrdered By: SYSTEM SYSTEM on 09-28-2023 Albumin [...] Consent for Treatmenton 08-30 Consent for Treatment [id number]#1.00TIFF Normal [facility] Discharge Instructionson Discharge Instructions [id number]#1.00TIFF Normal [facility] ED Clinical Summaryon 2023 ED Clinical Summary (Inserted Image. Lyssa ble to display) [place] [id number] ED Clinical Summary Person Information Name: MADHU RENDON [facility] Age: 37 Years : 1985 Sex: Female Language: Montenegrin PCP: Evans CASAS DO, FAAFP Marital Status: Phone: [phone] Visit Id: Visit Reason: Medical problem - [...] 09/28/2023 21:22:15 09/28/2023 21:22:15 09/28/2023 21:22:15 [facility] [id number] [facility] DOC NOTES: MEDICAL INFORMATION: Prescriptions Given: Medications to Continue with No Changes Other Medications enoxaparin (Lovenox 40 mg/0.4 mL Injection) 40 Milligram Subcutaneous every 24 hours. ergocalciferol (Vitamin D) 2,000 International unit By Mouth every week. fluticasone nasal (Flonase 0.05 mg/inh Whatley) 2 Sprays Nasal Inhalation every day. each nostril. metformin (MetFORMIN (Eqv-Glucophage XR) 500 mg oral tablet, extended release) 2 Tablets By Mouth every day. PATIENT EDUCATION INFORMATION: Instructions: Abdominal Pain, Adult Follow up: With: Address: When: [address], [place] [address] Business (1) In 3 days DIAGNOSIS: 1:Abdominal pain Normal [facility] ED Note-Physicianon 09-28-19 ED Note-Physician Patient was [...] this plan is discharged stable condition. Normal [facility] Comment on above: Result Comment: Elec tronically Signed By: Sidney Daly DO\.br\Date and Time Signed: 09/28/23 21:12 EDT ED Note-Physician Basic Information Time Seen: Bijan Miramontes PA-C 09/28/2023 18:46 Chief Complaint Pt woke up around 7 am and started getting a pain on R side of belly button. States feels bloated and like her abdomen is coral.Was sent here from [facility] for possible appendicitis. Nausea, denies vomiting. History [...] mL, IV, Once Home Flonase 0.05 mg/inh Whatley, 2 spray(s), Nasal, Daily Lovenox 40 mg/0.4 [...] No qual (more content not included)... Normal [facility] Comment on above: Result Comment: Elec tronically Signed By: Bijan Miramotnes PA-C\.br\Date and Time Signed: 09/28/23 18:50 EDT\.br\Electronically Co-Signed By: Benny Uribe DO.br\Date and Time Co-Signed: 09/28/23 19:44 EDT ED [...] these instructions at home: Medicines ? Take rvuu-hti-tueovze and prescription medicines only as told by [...] your condition for any changes. ? Take xyqq-qeg-khngzsq and prescription medicines only as told by [...] 06/04/2020 Document Reviewed: 08/25/2019 Elsevier Patient Education ? 2022 [employer] Normal [facility] ED Patient Summaryon 024 ED Patient Summary (Inserted Image. Lyssa ble to display) [address] [address] Patient Discharge Instructions Person Information Name: MADHU RENDON Age: 37 Years Arrival Date: 09/28/2023 18:21:25 Discharge Diagnosis: 1:Abdominal pain Primary Care Physician: Evans CASAS DO, FAAFP Provider Information Primary Provider: Benny Uribe DO [employer] Supervisor:Bijan Miramontes PA-C The exam and treatment you received in the Emergency Department were for an urgent problem and are not intended as complete care. It is important that you follow up with a doctor, nurse practitioner, or physician?s restaurant assistant for ongoing care. If your symptoms [...] Follow-up Instructions: With: Address: When: Evans CASAS [address] [place] [address], [facility] [place] [address] Business (1) In 3 days In the event that this physician does not participate in your insurance network, please consult with your insurance company to find a nearby participating provider. Patient Education Materials: Abdominal Pain, Adult A MESSAGE TO ALL PATIENTS REGARDING OPIOIDS PRESCRIPTION OPIOIDS: WHAT YOU NEED TO KNOW Prescription opioids can be used to help relieve sklzruqp-kb-kciswy pain and are often prescribed following a [...] be struggling with addiction, tell your health director of health care marketing and ask for guidance or call [facility]?S National Helpline at 0-729-005-PeeP [employer]. Source: Dep (more content not included)... Normal [facility] Family Medicine Office/Clini c [place] 09-28-2023 Family Medicine Office/Clinic Note Chief Complaint [...] and agree with above documented HPI by emergency medical technician/driver. Portions of this record may have been created with voice recognition artificial intelligence software, specifically [employer], [employer] and or [employer]. Substitutions may have occurred due to the inherent limitations of voice recognition and artificial intelligence software. Patient is a 37-year-old female who presents to [facility], for right lower quadrant pain, that [...] Repeat BP 140/90. 37-year-old female presented to [facility], for right lower quadrant abdominal pain, worsening symptoms throughout the day, history of ovarian cyst, still has her appendix, no right upper quadrant pain. Patient worsening pain on exam, but no acute abdomen. Patient is willing to go to the emergency room after being discharged from convenient care, for further evaluation of right lower quadrant [...] can o (more content not included)... Normal [facility] Comment on above: Result Comment: Elec tronically [...] 09-28-2023 Albumin [Mass/Vol] 4.8 g/dL Normal 3.3-5.0 [facility] Comment on above: Performed By: #### 2 [id number] #### [facility] [address] [place] [address] Albumin/Globulin (S) [Mass conc ratio] 1.6 Normal 1.1-2.2 [facility] Comment on above: Performed By: #### 2 356399 #### [facility] [address] [place] [address] ALP [Catalytic activity/Vol] 66 Int._Unit/L Normal 21-98 [facility] Comment on above: Performed By: #### 2 844299 #### [facility] [address] [place] [address] ALT No additional P-5'-P [Catalytic activity/Vol] 16 Int._Unit/L Normal 6-46 [facility] Comment on above: Performed By: #### 2 332658 #### [facility] [address] [place] [address] AST [Catalytic activity/Vol] 15 Int._Unit/L Normal 5-43 [facility] Comment on above: Performed By: #### 2 [id number] #### [facility] [address] [place] [address] Bilirubin [Mass/Vol] 0.3 mg/dL Normal 0.0-1.1 [facility] Comment on above: Performed By: #### 2 [id number] #### [facility] [address] [place] [address] Bilirubin.direct [Mass/Vol] 0.0 mg/dL Normal 0.0-0.4 [facility] Comment on above: Performed By: #### 2 [id number] #### [facility] [address] [place] [address] Bilirubin.indirect [Mass or moles/Vol] 0.3 mg/dL Normal 0.1-0.9 [facility] Comment on above: Performed By: #### 2 [id number] #### [facility] [address] [place] [address] Globulin (S) [Mass/Vol] 3.0 g/dL Normal 1.4-4.0 [facility] Comment on above: Performed By: #### 2 [id number] #### [facility] [address] [place] [address] Protein [Mass/Vol] 7.8 g/dL Normal 6.0-7.8 [facility] Comment on above: Performed By: #### 2 197218 #### [facility] [address] [place] [address] Lipase Levelon 09-28-2023 Lipase [Catalytic activity/Vol] 26 U/L Normal 13-58 [facility] Comment on above: Performed By: #### 2 [id number] #### [facility] [address] [place] [address] Patient Educationon 09-28-19 Patient Education Cardiovascular Hypertension, Adult Hypertension is [...] Keep all follow-up visits. Medicines ? Take dypp-qzk-jquowqu and prescription medicines only as told by [...] For m (more content not included)... Normal [facility] RAD - Preliminary Cat Scan R eporton 09-28-2023 RAD - Preliminary Cat Scan Report [id number]#[id number] Normal [facility] SEROLOGYOrdered By: Amanda Siegel on 09-28-2023 Beta HCG ( test) Ql Negative (09/28/23 6:59 PM) Normal [facility] Man Sero UA with Cult Rflxon 09-28-19 Bilirubin Ql (U) Negative Normal Negative [facility] Comment on above: Performed By: #### 4 [id number] ####[facility] [address] [place] [address] Clarity (U) Clear Normal Clear [facility] Comment on above: Performed By: #### 4 [id number] ####[facility] [address] [place] [address] Color (U) Colorless Abnormal Yellow [facility] Comment on above: Result Comment: Micr oscopic readings are only performed on those samples that meet specific criteria set forth by [facility]. Performed By: #### 4 [id number] ####[facility] [address] [facility] [place] [address] Glucose Ql (U) Negative Normal Negative [facility] Comment on above: Performed By: #### 4 [id number] ####[facility] [address] [facility] [place] [address] Hemoglobin Auto test strip (U) [Mass/Vol] Negative Normal Negative [facility] Comment on above: Performed By: #### 4 [id number] ####[place] [address] [facility] [place] [address] Ketones Auto test strip Ql (U) Negative Normal Negative [facility] Comment on above: Performed By: #### 4 [id number] ####[address] [place] [address] Leukocyte esterase Auto test strip Ql (U) Negative Normal Negative [facility] Comment on above: Performed By: #### 4 [id number] ####[address] [address] Nitrite Auto test strip Ql (U) Negative Normal Negative [facility] Comment on above: Performed By: #### 4 [id number] ####[address] [address] pH (U) 7.0 [pH] Invalid Interpretation Code 5.0-9.0 [facility] Comment on above: Performed By: #### 4 [id number] ####[address] [address] Protein Ql (U) Negative Normal Negative [facility] Comment on above: Performed By: #### 4 [id number] ####[place] [address] [facility] [place] [address] Specific gravity (U) [Rel density] 1.003 Invalid Interpretation Code 1.005-1.030 [facility] Comment on above: Performed By: #### 4 [id number] ####[place] [place] [address] Urobilinogen (U) [Mass/Vol] Negative Normal Negative [facility] Comment on above: Performed By: #### 4 [id number] ####[facility] [address] [place] [address] Type of Urine collection method Clean Catch Normal [facility] Comment on above: Performed By: #### 4 [id number] ####[facility] [address] [place] [address] URINALYSISOrdered By: SYSTEM SYSTEM on 09-28-2023 Bilirubin Ql (U) Negative Normal Negativemg/ dL [facility] UA Auto SS Clarity (U) Clear (09/28/23 7:35 PM) Normal Clear [facility] UA Auto SS Color (U) Colorless 1 *ABN* (09/28/23 7:35 PM) Invalid Interpretation Code Yellow [facility] UA Auto SS Comment on above: Interpretive Data: M icroscopic readings are only performed on those samples that meet specific criteria set forth by [facility]. Glucose Ql (U) Negative Normal Negativemg/ dL [facility] UA Auto SS Hemoglobin Auto test strip (U) [Mass/Vol] Negative Normal Negativemg/ dL [facility] UA Auto SS Ketones Auto test strip Ql (U) Negative Normal Negativemg/ dL [facility] UA Auto SS Leukocyte esterase Auto test strip Ql (U) Negative Normal NegativeLeu /uL [facility] UA Auto SS Nitrite Auto test strip Ql (U) Negative Normal Negativemg/ dL [facility] UA Auto SS pH (U) 7.0 *NA* (09/28/23 7:35 PM) Invalid Interpretation Code 5.0 - 9.0 [facility] UA Auto SS Protein Ql (U) Negative Normal Negativemg/ dL [facility] UA Auto SS Specific gravity (U) [Rel density] 1.003 *NA* (09/28/23 7:35 PM) Invalid Interpretation Code 1.005 - 1.030 [facility] UA Auto SS Urobilinogen (U) [Mass/Vol] Negative Normal Negativemg/ dL [facility] UA Auto SS URINALYSISOrdered By: Bijan Miramontes on 09-28-2023 UA Spec Desc Clean Catch (09/28/23 7:35 PM) Normal [facility] UA Auto SS Work Phone: eGFRon 09-28-2023 eGFR 84 mL/min/1.73 m2 Normal >=59 [facility] Comment on above: Order Comment: Order added by Discern Expert. Performed By: #### 1 [id number] #### [facility] [address] [place] [address] Sisi 09-27-2023 CNPN Telephone (NCCAP) -- MADHU RENDON ([id number]) 1985 F Date Time Provider Department 09/27/23 [facility] your visit today, we recorded the following information about you: Harjit Hasknis 09/27/2023 4:39 PM Signed Attempt has been [...] Encounter Status:Closed by HARJIT HASKINS on 09/27/23 Normal [facility] Ambulatory Visit Summaryon 0 08-03-2023 Ambulatory Visit Summary JUSTICEMADHU :1985 Visit Date:08/03/2023 Ambulatory Visit Instructions Your [...] (Vitamin D) fluticasone nasal (Flonase 0.05 mg/inh Whatley) metformin (MetFORMIN (Eqv-Glucophage XR) 500 mg oral [...] Schedule the Following Appointments Follow Up with PRAVEEN RESENDEZ FAAFP, Evans Tony, CHRIS, PED When: In 4 months Where: [address], [place] [address]- You Need to Complete the Following HgbA1c, [...] Unchanged fluticasone nasal (Flonase 0.05 mg/ inh Whatley) 2 Sprays Nasal Inhalation Every day each [...] a mile (more content not included)... Normal [facility] Family Medicine Office/Clini c Noteon 08-03-2023 [...] comfortable with plan. PNMV Ordered: A1c POC 62050 Total time spent preparing the chart, conducting [...] FAAFP, FAM, PED In [address] [place] [address]- Additional Instructions: Patient Education Exercising to Lose Weight Problem Lis (more content not included)... Normal [facility] Comment on above: Result Comment: Elec tronically [...] health care provider or diet and nutrition educator (dietitian). This may include: ? Eating fewer [...] is e (more content not included)... Normal [facility] Patient Educationon 06-21-19 Patient Education Endocrinology [...] following in (more content not included)... Normal [facility] Reportson 06-20-2023 Lab Reports [id number] Normal [facility] Consultation Noteon 06-19-19 Consultation Note [id number]#1.00TIFF [facility] 25(OH)D3 SerPl-mCncon 2023 25-hydroxyvitamin D3 [Mass/Vol] 24.7 ng/mL Low 31.0-80.0 [facility] Comment on above: Order Comment: Cesar redd Type: BLOOD SPECIMEN Ordering Facility: [facility] Address: [address] [place] [address] Result Comment: Clas sification of 25 [place] Vitamin D status: Deficiency/Insufficiency: < or = 30 ng/ml. Sufficiency/Optimal Levels: 31-80 ng/mL Toxicity: > 100 ng/mL. Test performed by chemiluminescent immunoassay. Performed By: #### 5 0190-8, 2131-12, 2275-07, 2283-11 #### [facility] CLIA [id number] [address] [place] [address] [place] CBC W Auto Differential pane l (Bld)on 06-15-2023 Basophils (Bld) [#/Vol] 0.03 10*3/uL Normal <0.11 [facility] Comment on above: Order Comment: Cesar redd Type: BLOOD SPECIMEN Ordering Facility: [facility] Address: [address] [place] [address] Performed By: #### 5 0190-8, 2131-12, 2275-07, 2283-11 #### [facility] CLIA [id number] [address] [place] [address] [place] Basophils/100 WBC (Bld) 0.4 % Normal [facility] Comment on above: Order Comment: Speci men Type: BLOOD SPECIMEN Ordering Facility: [facility] Address: [address] [place] [address] Performed By: #### 5 0190-8, 9, 2275-4, 8 #### [facility] CLIA [id number] [address] [place] [address] [place] Differential cell count method Nom (Bld) Auto Normal [facility] Comment on above: Order Comment: Speci men Type: BLOOD SPECIMEN Ordering Facility: [facility] Address: [address] [place] [address] Performed By: #### 5 0190-8, 9, 4, 2283-11 #### [facility] CLIA [id number] [address] [place] [address] [place] Eosinophils (Bld) [#/Vol] 0.08 10*3/uL Normal <0.46 [facility] Comment on above: Order Comment: Speci men Type: BLOOD SPECIMEN Ordering Facility: [facility] Address: [address] [place] [address] Performed By: #### 5 0190-8, 9, 4, 2283-11 #### [facility] CLIA [id number] [address] [place] [address] [place] Eosinophils/100 WBC (Bld) 1.0 % Normal [facility] Comment on above: Order Comment: Speci men Type: BLOOD SPECIMEN Ordering Facility: [facility] Address: [address] [place] [address] Performed By: #### 5 0190-8, 9, 4, 8 #### [facility] CLIA [id number] [address] [place] [address] [place] Erythrocyte distribution width (RBC) [Ratio] 13.4 % Normal 11.5-15.0 [facility] Comment on above: Order Comment: Speci men Type: BLOOD SPECIMEN Ordering Facility: [facility] Address: [address] [place] [address] Performed By: #### 5 0190-8, 9, 4, 8 #### [facility] CLIA [id number] [address] [place] [address] [place] Hematocrit (Bld) [Volume fraction] 39.2 % Normal 36.0-46.0 [facility] Comment on above: Order Comment: Speci men Type: BLOOD SPECIMEN Ordering Facility: [facility] Address: [address] [place] [address] Performed By: #### 5 0190-8, 9, 2275-07, 2283-11 #### [facility] CLIA [id number] [address] [place] [address] [place] Hemoglobin (Bld) [Mass/Vol] 13.4 g/dL Normal 11.5-15.5 [facility] Comment on above: Order Comment: Speci men Type: BLOOD SPECIMEN Ordering Facility: [facility] Address: [address] [place] [address] Performed By: #### 5 0190-8, 9, 2275-07, 2283-11 #### [facility] CLIA [id number] [address] [place] [address] [place] Immature granulocytes (Bld) [#/Vol] 10*3/uL Normal <0.10 [facility] Comment on above: Order Comment: Speci men Type: BLOOD SPECIMEN Ordering Facility: [facility] Address: [address] [place] [address] Performed By: #### 5 0190-8, 2131-9, 4, 2283-11 #### [facility] CLIA [id number] [address] [place] [address] [place] Immature granulocytes/100 WBC (Bld) 0.2 % Normal [facility] Comment on above: Order Comment: Speci men Type: BLOOD SPECIMEN Ordering Facility: [facility] Address: [address] [place] [address] Performed By: #### 5 0190-8, 9, 2275-07, 2283-11 #### [facility] CLIA [id number] [address] [place] [address] [place] Lymphocytes (Bld) [#/Vol] 2.96 10*3/uL Normal 1.00-4.00 [facility] Comment on above: Order Comment: Speci men Type: BLOOD SPECIMEN Ordering Facility: [facility] Address: [address] [place] [address] Performed By: #### 5 0190-8, 9, 2275-07, 2283-11 #### [facility] CLIA [id number] [address] [place] [address] [place] Lymphocytes/100 WBC (Bld) 36.8 % Normal [facility] Comment on above: Order Comment: Speci men Type: BLOOD SPECIMEN Ordering Facility: [facility] Address: [address] [place] [address] Performed By: #### 5 0190-8, 9, 2275-07, 2283-11 #### [facility] CLIA [id number] [address] [place] [address] [place] MCH (RBC) [Entitic mass] 29.4 pg Normal 26.0-34.0 [facility] Comment on above: Order Comment: Speci men Type: BLOOD SPECIMEN Ordering Facility: [facility] Address: [address] [place] [address] Performed By: #### 5 0190-8, 9, 2275-07, 2283-11 #### [facility] CLIA [id number] [address] [place] [address] [place] MCHC (RBC) [Mass/Vol] 34.2 g/dL Normal 30.5-36.0 [facility] Comment on above: Order Comment: Speci men Type: BLOOD SPECIMEN Ordering Facility: [facility] Address: [address] [place] [address] Performed By: #### 5 0190-8, 9, 2275-07, 2283-11 #### [facility] CLIA [id number] [address] [place] [address] [place] MCV (RBC) [Entitic vol] 86.0 fL Normal 80.0-100.0 [facility] Comment on above: Order Comment: Speci men Type: BLOOD SPECIMEN Ordering Facility: [facility] Address: [address] [place] [address] Performed By: #### 5 0190-8, 9, 2275-07, 2283-11 #### [facility] CLIA [id number] [address] [place] [address] [place] Monocytes (Bld) [#/Vol] 0.45 10*3/uL Normal <0.87 [facility] Comment on above: Order Comment: Speci men Type: BLOOD SPECIMEN Ordering Facility: [facility] Address: [address] [place] [address] Performed By: #### 5 0190-8, 9, 2275-07, 2283-11 #### [facility] CLIA [id number] [address] [place] [address] [place] Monocytes/100 WBC (Bld) 5.6 % Normal [facility] Comment on above: Order Comment: Speci men Type: BLOOD SPECIMEN Ordering Facility: [facility] Address: [address] [place] [address] Performed By: #### 5 0190-8, 9, 2275-07, 2283-11 #### [facility] CLIA [id number] [address] [place] [address] [place] Neutrophils (Bld) [#/Vol] 4.50 10*3/uL Normal 1.45-7.50 [facility] Comment on above: Order Comment: Speci men Type: BLOOD SPECIMEN Ordering Facility: [facility] Address: [address] [place] [address] Performed By: #### 5 0190-8, 9, 2275-07, 2283-11 #### [facility] CLIA [id number] [address] [place] [address] [place] Neutrophils/100 WBC (Bld) 56.0 % Normal [facility] Comment on above: Order Comment: Speci men Type: BLOOD SPECIMEN Ordering Facility: [facility] Address: [address] [place] [address] Performed By: #### 5 0190-8, 9, 2275-07, 2283-11 #### [facility] CLIA [id number] [address] [place] [address] [place] Nucleated RBC (Bld) [#/Vol] 10*3/uL Normal <0.01 [facility] Comment on above: Order Comment: Speci men Type: BLOOD SPECIMEN Ordering Facility: [facility] Address: [address] [place] [address] Performed By: #### 5 0190-8, 9, 2275-07, 2283-11 #### [facility] CLIA [id number] [address] [place] [address] [place] Nucleated RBC/100 WBC (Bld) [Ratio] 0.0 /100 WBC Normal [facility] Comment on above: Order Comment: Speci men Type: BLOOD SPECIMEN Ordering Facility: [facility] Address: [address] [place] [address] Performed By: #### 5 0190-8, 9, 2275-07, 2283-11 #### [facility] CLIA [id number] [address] [place], [place] [address] [place] Platelet mean volume (Bld) [Entitic vol] 9.8 fL Normal 9.0-12.7 [facility] Comment on above: Order Comment: Speci men Type: BLOOD SPECIMEN Ordering Facility: [facility] Address: [address] [place] [address] Performed By: #### 5 0190-8, 9, 2275-07, 2283-11 #### [facility] CLIA [id number] [address] [place] [address] [place] Platelets (Bld) [#/Vol] 348 10*3/uL Normal 150-400 [facility] Comment on above: Order Comment: Speci men Type: BLOOD SPECIMEN Ordering Facility: [facility] Address: [address] [place] [address] Performed By: #### 5 0190-8, 9, 2275-07, 2283-11 #### [facility] CLIA [id number] [address] [place] [address] [place] RBC (Bld) [#/Vol] 4.56 10*6/uL Normal 3.90-5.20 [facility] Comment on above: Order Comment: Speci men Type: BLOOD SPECIMEN Ordering Facility: [facility] Address: [address] [place] [address] Performed By: #### 5 0190-8, 9, 2275-07, 2283-11 #### [facility] CLIA [id number] [address] [place] [address] [place] WBC (Bld) [#/Vol] 8.04 10*3/uL Normal 3.70-11.00 [facility] Comment on above: Order Comment: Speci men Type: BLOOD SPECIMEN Ordering Facility: [facility] Address: [address] [place] [address] Performed By: #### 5 0190-8, 2132-9, 2276-4, 2284-8 #### [facility] CLIA [id number] [address] [place] [address] [place] [facility] CNOVSPon 06-15-2023 CNOVSP Visit (SP) Office (H EMASA) -- MADHU RENDON ([id number]) 1985 F Date Time Provider Department 06/15/23 2:00 PM SALVADOR CALIX During your visit today, we recorded the following information about you: Temperature Pulse Respiration Blood pressure 97.4 degrees 87/minute 16/minute 147/75 Weight Height 108.1 kg 1.677 m Salvador Calix MD 06/17/2023 9:02 AM Signed NAME: Madhu Rendon CLINIC NO.: [id number] DATE OF SERVICE: June 15, 2023 (Levon) Some elements in this clinic note that are critical to medical decision making have been carefully reviewed and included from a prior clinic note dated: May 31, 2023 (Levon) Additional Clinicians involved in Madhu Rendon's care: Jorge Mcwilliams, Humaira Gaviria, Dr. Boothe CC: hypercoag state. ASSESSMENT: 37 year old woman 25 weeks presents with a prior history of CVA in 2016 and an antiphospholipid antibody that was identified much later in 2018. These were found in [place], [place]. I don't have access to these [...] a target-like rash shortly before presenting to [facility] in 2016 with headaches and was diagnosed with a CVA. - She saw Dr. Baguh but no relevant conclusion was made. She [...] soon. When she had a stoke in [place], she had symptoms up to a month [...] and stayed on Lovenox Hgb 13.1 @ [facility] Recommended ER if persisting bleeding but she [...] and r (more content not included)... Normal [facility] JUSTICE,KATIE ([id number]) 1985 F Date Time Provider Department 06/15/23 SALVADOR CALIX During your visit today, we recorded the following information about you: Harjit Haskins 06/15/2023 2:37 PM Signed Triage to call lab results Harjit Naga Morfin RN 06/18/2023 8:42 AM Signed Please review [...] numbers. No answer/VM full MARSHA Rush Natalie, RN 06/19/2023 12:27 PM Signed [employer] message sent MARSHA Rush Natalie, RN 06/19/2023 1:06 PM Signed Pt called back and aware of [employer]'s message. She is agreeable to POC and [...] Status:Closed by NAGA JOHNSON on 06/19/23 Normal [facility] Calcium.ionized [Moles/Vol]o n 06-15-2023 Calcium.ionized (Bld) [Mass/Vol] 1.28 mmol/L Normal 1.08-1.30 [facility] Comment on above: Order Comment: Cesar redd Type: BLOOD SPECIMEN Ordering Facility: External Submitter Address: , , Performed By: #### 1 995-0 #### [facility] CLIA [id number] [address] [place] [address] [place] Calcium.ionized adjusted to pH 7.4 (Bld) [Moles/Vol] 1.31 mmol/L High 1.08-1.30 [facility] Comment on above: Order Comment: Cesar redd Type: BLOOD SPECIMEN Ordering Facility: External Submitter Address: , , Performed By: #### 1 995-0 #### [facility] CLIA [id number] [address] [place] [address] [place] Comprehensive metabolic 2000 panelon 06-15-2023 Albumin [Mass/Vol] 4.8 g/dL Normal 3.9-4.9 [facility] Comment on above: Order Comment: Speci men Type: BLOOD SPECIMEN [facility]ing Facility: [facility] Address: [address] [place] [address] Performed By: #### 5 0190-8, 9, 2275-4, 8 #### [facility] CLIA [id number] [address] [place] [address] [place] ALP [Catalytic activity/Vol] 100 U/L Normal 34-123 [facility] Comment on above: Order Comment: Speci men Type: BLOOD SPECIMEN Ordering Facility: [facility] Address: [address] [place] [address] Performed By: #### 5 0190-8, 9, 4, 2283-11 #### [facility] CLIA [id number] [address] [place] [address] [place] ALT [Catalytic activity/Vol] 36 U/L Normal 7-38 [facility] Comment on above: Order Comment: Speci men Type: BLOOD SPECIMEN Ordering Facility: [facility] Address: [address] [place] [address] Performed By: #### 5 0190-8, 9, 4, 2283-11 #### [facility] CLIA [id number] [address] [place] [address] [place] Anion gap [Moles/Vol] 13 mmol/L Normal 9-18 [facility] Comment on above: Order Comment: Speci men Type: BLOOD SPECIMEN [facility] Facility[facility] Address: [address] [place] [address] Performed By: #### 5 0190-8, 9, 4, 2283-11 #### [facility] CLIA [id number] [address] [place] [address] [place] AST [Catalytic activity/Vol] 23 U/L Normal 13-35 [facility] Comment on above: Order Comment: Speci men Type: BLOOD SPECIMEN [facility]ing Facility: [facility] Address: [address] [place] [address] Performed By: #### 5 0190-8, 9, 4, 2283-11 #### [facility] CLIA [id number] [address] [place] [address] [place] Bilirubin [Mass/Vol] 0.2 mg/dL Normal 0.2-1.3 [facility] Comment on above: Order Comment: Speci men Type: BLOOD SPECIMEN [facility]ing Facility: [facility] Address: [address] [place] [address] Performed By: #### 5 0190-8, 9, 2275-07, 2283-11 #### [facility] CLIA [id number] [address] [place] [address] [place] Calcium [Mass/Vol] 9.9 mg/dL Normal 8.5-10.2 [facility] Comment on above: Order Comment: Speci men Type: BLOOD SPECIMEN [facility]ing Facility: [facility] Address: [address] [place] [address] Performed By: #### 5 0190-8, 9, 2275-07, 2283-11 #### [facility] CLIA [id number] [address] [place] [address] [place] Chloride [Moles/Vol] 103 mmol/L Normal 97-105 [facility] Comment on above: Order Comment: Speci men Type: BLOOD SPECIMEN [facility]ing [facility]: [facility] Address: [address] [place] [address] Performed By: #### 5 0190-8, 9, 2275-07, 2283-11 #### [facility] CLIA [id number] [address] [place] [address] [place] CO2 [Moles/Vol] 22 mmol/L Normal 22-30 [facility] Comment on above: Order Comment: Speci men Type: BLOOD SPECIMEN [facility]ing [facility] Address: [address] [place] [address] Performed By: #### 5 0190-8, 9, 2275-07, 2283-11 #### [facility] CLIA [id number] [address] [place] [address] [place] Creatinine [Mass/Vol] 0.78 mg/dL Normal 0.58-0.96 [facility] Comment on above: Order Comment: Speci men Type: BLOOD SPECIMEN [facility] Address: [address] [place] [address] Performed By: #### 5 0190-8, 2131-12, 2275-07, 2283-11 #### [facility] CLIA [id number] [address] [place] [address] [place] Creatinine and Glomerular filtration rate.predicted panel (S/P/Bld) 100 mL/min/1.73m??? Normal >=60 [facility] Comment on above: Order Comment: Speci men Type: BLOOD SPECIMEN [facility] Address: [address] [place] [address] Result Comment: Hawa mated Glomerular Filtration Rate [...] #### 5 0190-8, 9, 2275-07, 2283-11 #### [facility] CLIA [id number] [address] [place] [address] [place] Glucose [Mass/Vol] 134 mg/dL High 74-99 [facility] Comment on above: Order Comment: Speci men Type: BLOOD SPECIMEN [facility]ing [facility] Address: [address] [place] [address] Result Comment: The [place] Diabetes [employer] (ADA) provides guidance for cutoff [...] Standards of Medical Care in Diabetes 2016, [place] [employer]. Diabetes Care. 2016.39(Suppl 1). Performed By: #### 5 0190-8, 2131-12, 2275-07, 2283-11 #### [facility] CLIA [id number] [address] [place] [address] [place] Potassium [Moles/Vol] 3.8 mmol/L Normal 3.7-5.1 [facility] Comment on above: Order Comment: Cesar redd Type: BLOOD SPECIMEN [facility] Address: [address] [place] [address] Performed By: #### 5 0190-8, 2131-12, 2275-07, 2283-11 #### [facility] CLIA [id number] [address] [place] [address] [place] Protein [Mass/Vol] 7.8 g/dL Normal 6.3-8.0 [facility] Comment on above: Order Comment: Cesar redd Type: BLOOD SPECIMEN [facility] Address: [address] [place] [address] Performed By: #### 5 0190-8, 2131-12, 2275-07, 2283-11 #### [facility] CLIA [id number] [address] [place] [address] [place] Sodium [Moles/Vol] 138 mmol/L Normal 136-144 [facility] Comment on above: Order Comment: Speci men Type: BLOOD SPECIMEN [facility] Address: [address] [place] [address] Performed By: #### 5 0190-8, 9, 6-4, 8 #### [facility] CLIA [id number] [address] [place] [address] [place] Urea nitrogen [Mass/Vol] 11 mg/dL Normal 7-21 [facility] Comment on above: Order Comment: Speci men Type: BLOOD SPECIMEN [facility] Address: [address] [place] [address] Performed By: #### 5 0190-8, 9, 2275-4, 8 #### [facility] CLIA [id number] [address] [place] [address] [place] Ferritin SerPl-mCncon 2023 Ferritin [Mass/Vol] 57.6 ng/mL Normal 14.7-205.1 [facility] Comment on above: Order Comment: Speci men Type: BLOOD SPECIMEN [facility] Address: [address] [place] [address] Performed By: #### 5 0190-8, 9, 4, 8 #### [facility] CLIA [id number] [address] [place] [address] [place] Folate SerPl-mCncon 06-15-19 24 Folate [Mass/Vol] ng/mL Normal >4.7 [facility] Comment on above: Order Comment: Speci [...] III (Folate III) [package insert V 1.0 Montenegrin]. [facility], [place], [place]: February 2015. Performed By: #### 2 284-8, 2731-8, 9 ####[facility] [id number] [place] [address] [place] Iron and Iron binding capaci ty panelon 06-15-2023 Iron [Mass/Vol] 59 ug/dL Normal 41-186 [facility] Comment on above: Order Comment: Speci men Type: BLOOD SPECIMEN [facility] Address: [address] [place] [address] Performed By: #### 5 0190-8, 9, 2275-07, 2283-11 #### [facility] CLIA [id number] [address] [place] [address] [place] Iron binding capacity [Mass/Vol] 408 ug/dL High 232-386 [facility] Comment on above: Order Comment: Speci men Type: BLOOD SPECIMEN [facility] Address: [address] [place] [address] Performed By: #### 5 0190-8, 2131-12, 2275-07, 2283-11 #### [facility] CLIA [id number] [address] [place] [address] [place] Iron/TIBC [Molar ratio] 14.5 % Low 15.0-57.0 [facility] Comment on above: Order Comment: Speci men Type: BLOOD SPECIMEN [facility] Address: [address] [place] [address] Performed By: #### 5 0190-8, 9, 2275-07, 2283-11 #### [facility] CLIA [id number] [address] [place] [address] [place] [facility] Parathyrin.intact [Mass/Vol] 47 pg/mL Normal 15-65 [facility] Comment on above: Order Comment: Speci men Type: BLOOD SPECIMENOrdering Facility: External Submitter Address: , , Performed By: #### 2 284-8, 2730-8, 2131-12 ####[facility] [id number] [place] [address] [place] TSH SerPl-aCncon 06-15-2023 TSH Qn 4.730 m[IU]/L High 0.270-4.200 [facility] Comment on above: Order Comment: Speci men Type: BLOOD SPECIMEN [facility] Address: [address] [place] [address] Result Comment: If t he patient is , TSH reference range varies by gestational period: First Trimester (weeks 9-12): 0.180-2.990 mIU/L Second Trimester: 0.110-3.980 mIU/L Third Trimester: 0.480-4.710 mIU/L Danny Varela et al. A Practical Approach for the Verifications and Determination of Site- and Trimester-Specific Reference Intervals for Thyroid Function tests in . Thyroid, 2019:29:3:412-420. Saeed E, et al. 2017 Guidelines of the [place] Thyroid Association for the Diagnosis and Management of Thyroid Disease during and the . Thyroid, 2017:27:3:315-389. Performed By: #### 5 0190-8, 9, 6-4, 8 #### [facility] CLIA [id number] [address] [place] [address] [place] Vit B12 SerPl-mCncon 024 Cobalamin (Vitamin B12) [Mass/Vol] 404 pg/mL Normal 232-1245 [facility] Comment on above: Order Comment: Speci men Type: BLOOD SPECIMENOrdering Facility: External Submitter Address: , , Performed By: #### 2 284-8, 2731-8, 2131-12 ####[facility]IA [id number] [place] [address] [facility] Sisi 06-11-2023 CNPN Telephone ([facility]) -- MADHU RENDON ([id number]) 1985 F Date Time Provider Department 06/11/23 SALVADOR CALIX ROD During your visit today, we recorded the [...] R53.83] Order(s):CBC + DIFF [SQCBCDIF] Order #: [id number] FUTURE COMP METABOLIC PANEL [SQCMP] Order #: [id number] FUTURE IRON + TIBC [SQIRON] Order #: [id number] FUTURE FERRITIN BLD [SQFERR] Order #: [id number] FUTURE VITAMIN B12 BLOOD [SQB12] Order #: [id number] FUTURE FOLATE SERUM [SQSERFOL] Order #: [id number] FUTURE TSH BLD [SQTSH] Order #: [id number] FUTURE VITAMIN D 25 HYDROXY [SQVITD] Order #: [id number] FUTURE CALCIUM IONIZED BLOOD [SQICA] Order #: [id number] FUTURE PTH, INTACT (WITHOUT CALCIUM) [[id number]] Order #: [id number] FUTURE PTH, INTACT (WITHOUT CALCIUM) [[id number]] Order #: [id number] Prescriptions as of 06/12/2023 - enoxaparin (LOVENOX) [...] Encounter Status:Closed by SALVADOR CALIX on 06/12/23 [facility] Sisi 06-01-2023 [facility] MADHU RENDON ([id number]) 1985 F Date Time Provider Department 06/01/23 SALVADOR CALIX During your visit today, we recorded the following information about you: Marleen Smith 06/01/2023 9:[address] Luna is referring Madhu back to see Dr. Peng Monge / Neurology / [place] Dx: vision changes and numbness of face. Pt states that it has been a few years since she was last seen by him. [facility] [address], [place] Bhavna, Please fax records Andres, Please follow up on this appt. Thank you Nicol Avila 06/04/2023 9:12 AM Signed Bhavna: Information ready for you. [facility] 8[facility]37 AM Signed Records faxed. Nicol Avila 06/07/2023 10:[address] Monge office spoke with Ingrid. She states they have received this referral and are working with Dr. Monge see when to schedule patient. Right now they are looking at possibly getting patient scheduled sometime next week. I will call back next week to check the status of this appointment. Nicol Whitten 06/11/2023 9:[address] Monge [...] Status:Closed by MARLEEN SMITH on 06/11/23 Normal [facility] CBC W Auto Differential pane l (Bld)on 05-28-2023 Basophils (Bld) [#/Vol] 0.04 10*3/uL Normal <0.11 [facility] Comment on above: Order Comment: Speci men Type: BLOOD SPECIMEN [facility] Address: [address] [place] [address] Performed By: #### 5 0190-8, 9, 2275-07, 2283-11 #### [facility] CLIA [id number] [address] [place] [address] [place] Basophils/100 WBC (Bld) 0.5 % Normal [facility] Comment on above: Order Comment: Speci men Type: BLOOD SPECIMEN [facility] Address: [address] [place] [address] Performed By: #### 5 0190-8, 2131-12, 2275-07, 2283-11 #### [facility] CLIA [id number] [address] [place] [address] [place] Differential cell count method Nom (Bld) Auto Normal [facility] Comment on above: Order Comment: Speci men Type: BLOOD SPECIMEN [facility] Address: [address] [place] [address] Performed By: #### 5 0190-8, 2131-12, 2275-07, 2283-11 #### [facility] CLIA [id number] [address] [place] [address] [place] Eosinophils (Bld) [#/Vol] 0.11 10*3/uL Normal <0.46 [facility] Comment on above: Order Comment: Speci men Type: BLOOD SPECIMEN [facility] Address: [address] [place] [address] Performed By: #### 5 0190-8, 2131-12, 2275-07, 2283-11 #### [facility] CLIA [id number] [address] [place] [address] [place] Eosinophils/100 WBC (Bld) 1.4 % Normal [facility] Comment on above: Order Comment: Speci men Type: BLOOD SPECIMEN [facility] Address: [address] [place] [address] Performed By: #### 5 0190-8, 2131-12, 2275-07, 2283-11 #### [facility] CLIA [id number] [address] [place] [address] [place] Erythrocyte distribution width (RBC) [Ratio] 13.4 % Normal 11.5-15.0 [facility] Comment on above: Order Comment: Speci men Type: BLOOD SPECIMEN [facility] Address: [address] [place] [address] Performed By: #### 5 0190-8, 2131-12, 2275-07, 2283-11 #### [facility] CLIA [id number] [address] [place] [address] [place] Hematocrit (Bld) [Volume fraction] 40.5 % Normal 36.0-46.0 [facility] Comment on above: Order Comment: Speci men Type: BLOOD SPECIMEN [facility] Address: [address] [place] [address] Performed By: #### 5 0190-8, 2131-12, 2275-07, 2283-11 #### [facility] CLIA [id number] [address] [place] [address] [place] Hemoglobin (Bld) [Mass/Vol] 13.7 g/dL Normal 11.5-15.5 [facility] Comment on above: Order Comment: Speci men Type: BLOOD SPECIMEN [facility] Address: [address] [place] [address] Performed By: #### 5 0190-8, 2131-12, 2275-07, 2283-11 #### [facility] CLIA [id number] [address] [place] [address] [place] Immature granulocytes (Bld) [#/Vol] 10*3/uL Normal <0.10 [facility] Comment on above: Order Comment: Speci men Type: BLOOD SPECIMEN [facility] Address: [address] [place] [address] Performed By: #### 5 0190-8, 2131-9, 2275-4, 8 #### [facility] CLIA [id number] [address] [place] [address] [place] Immature granulocytes/100 WBC (Bld) 0.2 % Normal [facility] Comment on above: Order Comment: Speci men Type: BLOOD SPECIMEN [facility]ing [facility] Address: [address] [place] [address] Performed By: #### 5 0190-8, 9, 4, 8 #### [facility] CLIA [id number] [address] [place] [address] [place] Lymphocytes (Bld) [#/Vol] 3.54 10*3/uL Normal 1.00-4.00 [facility] Comment on above: Order Comment: Speci men Type: BLOOD SPECIMEN [facility] Address: [address] [place] [address] Performed By: #### 5 0190-8, 9, 4, 2283-11 #### [facility] CLIA [id number] [address] [place] [address] [place] Lymphocytes/100 WBC (Bld) 44.2 % Normal [facility] Comment on above: Order Comment: Speci men Type: BLOOD SPECIMEN [facility]ing [facility] Address: [address] [place] [address] Performed By: #### 5 0190-8, 9, 4, 2283-11 #### [facility] CLIA [id number] [address] [place] [address] [place] MCH (RBC) [Entitic mass] 29.1 pg Normal 26.0-34.0 [facility] Comment on above: Order Comment: Speci men Type: BLOOD SPECIMEN [facility] Address: [address] [place] [address] Performed By: #### 5 0190-8, 9, 4, 8 #### [facility] CLIA [id number] [address] [place] [address] [place] MCHC (RBC) [Mass/Vol] 33.8 g/dL Normal 30.5-36.0 [facility] Comment on above: Order Comment: Speci men Type: BLOOD SPECIMEN [facility] Address: [address] [place] [address] Performed By: #### 5 0190-8, 9, 2275-07, 2283-11 #### [facility] CLIA [id number] [address] [place] [address] [place] MCV (RBC) [Entitic vol] 86.0 fL Normal 80.0-100.0 [facility] Comment on above: Order Comment: Speci men Type: BLOOD SPECIMEN [facility] Address: [address] [place] [address] Performed By: #### 5 0190-8, 2131-9, 2275-07, 2283-11 #### [facility] CLIA [id number] [address] [place] [address] [place] Monocytes (Bld) [#/Vol] 0.60 10*3/uL Normal <0.87 [facility] Comment on above: Order Comment: Speci men Type: BLOOD SPECIMEN [facility] Address: [address] [place] [address] Performed By: #### 5 0190-8, 2131-9, 2275-07, 2283-11 #### [facility] CLIA [id number] [address] [place] [address] [place] Monocytes/100 WBC (Bld) 7.5 % Normal [facility] Comment on above: Order Comment: Speci men Type: BLOOD SPECIMEN [facility]ing Facility[facility] Address: [address] [place] [address] Performed By: #### 5 0190-8, 2131-9, 2275-4, 8 #### [facility] CLIA [id number] [address] [place] [address] [place] Neutrophils (Bld) [#/Vol] 3.70 10*3/uL Normal 1.45-7.50 [facility] Comment on above: Order Comment: Speci men Type: BLOOD SPECIMEN [facility] Address: [address] [place] [address] Performed By: #### 5 0190-8, 2131-9, 2275-07, 8 #### [facility] CLIA [id number] [address] [place] [address] [place] Neutrophils/100 WBC (Bld) 46.2 % Normal [facility] Comment on above: Order Comment: Speci men Type: BLOOD SPECIMEN [facility]ing [facility] Address: [address] [place] [address] Performed By: #### 5 0190-8, 2131-9, 2275-4, 8 #### [facility] CLIA [id number] [address] [place] [address] [place] Nucleated RBC (Bld) [#/Vol] 10*3/uL Normal <0.01 [facility] Comment on above: Order Comment: Speci men Type: BLOOD SPECIMEN [facility] Address: [address] [place] [address] Performed By: #### 5 0190-8, 2131-9, 2275-4, 8 #### [facility] CLIA [id number] [address] [place] [address] [place] Nucleated RBC/100 WBC (Bld) [Ratio] 0.0 /100 WBC Normal [facility] Comment on above: Order Comment: Speci men Type: BLOOD SPECIMEN [facility]ing [facility] Address: [address] [place], [place] [address] Performed By: #### 5 0190-8, 9, 2275-07, 8 #### [facility] CLIA [id number] [address] [place] [address] [place] Platelet mean volume (Bld) [Entitic vol] 10.1 fL Normal 9.0-12.7 [facility] Comment on above: Order Comment: Speci men Type: BLOOD SPECIMEN [facility] Address: [address] [place] [address] Performed By: #### 5 0190-8, 9, 2275-07, 2283-11 #### [facility] CLIA [id number] [address] [place] [address] [place] Platelets (Bld) [#/Vol] 339 10*3/uL Normal 150-400 [facility] Comment on above: Order Comment: Speci men Type: BLOOD SPECIMEN [facility] Address: [address] [place] [address] Performed By: #### 5 0190-8, 9, 2275-07, 2283-11 #### [facility] CLIA [id number] [address] [place] [address] [place] RBC (Bld) [#/Vol] 4.71 10*6/uL Normal 3.90-5.20 [facility] Comment on above: Order Comment: Speci men Type: BLOOD SPECIMEN [facility] Address: [address] [place] [address] Performed By: #### 5 0190-8, 9, 2275-07, 2283-11 #### [facility] CLIA [id number] [address] [place] [address] [place] WBC (Bld) [#/Vol] 8.01 10*3/uL Normal 3.70-11.00 [facility] Comment on above: Order Comment: Speci men Type: BLOOD SPECIMEN [facility] Address: [address] [place] [address] Performed By: #### 5 0190-8, 9, 2275-07, 2283-11 #### [facility] CLIA [id number] [address] [place] [address] [place] Comprehensive metabolic 2000 panelon 05-28-2023 Albumin [Mass/Vol] 4.8 g/dL Normal 3.9-4.9 [facility] Comment on above: Order Comment: Speci men Type: BLOOD SPECIMEN [facility] Address: [address] [place] [address] Performed By: #### 5 0190-8, 2131-12, 2275-07, 2283-11 #### [facility] CLIA [id number] [address] [place] [address] [place] ALP [Catalytic activity/Vol] 95 U/L Normal 34-123 [facility] Comment on above: Order Comment: Speci men Type: BLOOD SPECIMEN [facility] Address: [address] [place] [address] Performed By: #### 5 0190-8, 2131-12, 2275-07, 2283-11 #### [facility] CLIA [id number] [address] [place] [address] [place] ALT [Catalytic activity/Vol] 24 U/L Normal 7-38 [facility] Comment on above: Order Comment: Speci men Type: BLOOD SPECIMEN [facility]ing [facility] Address: [address] [place] [address] Performed By: #### 5 0190-8, 2131-12, 2275-07, 2283-11 #### [facility] CLIA [id number] [address] [place] [address] [place] Anion gap [Moles/Vol] 12 mmol/L Normal 9-18 [facility] Comment on above: Order Comment: Speci men Type: BLOOD SPECIMEN Ordering Facility: [facility] Address: [address] [place] [address] Performed By: #### 5 0190-8, 2131-12, 2275-07, 2283-11 #### [facility] CLIA [id number] [address] [place] [address] [place] AST [Catalytic activity/Vol] 17 U/L Normal 13-35 [facility] Comment on above: Order Comment: Speci men Type: BLOOD SPECIMEN Ordering Facility: [facility] Address: [address] [place] [address] Performed By: #### 5 0190-8, 2131-12, 2275-07, 2283-11 #### [facility] CLIA [id number] [address] [place] [address] [place] Bilirubin [Mass/Vol] 0.2 mg/dL Normal 0.2-1.3 [facility] Comment on above: Order Comment: Speci men Type: BLOOD SPECIMEN Ordering Facility: [facility] Address: [address] [place] [address] Performed By: #### 5 0190-8, 2131-12, 2275-07, 2283-11 #### [facility] CLIA [id number] [address] [place] [address] [place] Calcium [Mass/Vol] 10.7 mg/dL High 8.5-10.2 [facility] Comment on above: Order Comment: Speci men Type: BLOOD SPECIMEN Ordering Facility: [facility] Address: [address] [place] [address] Result Comment: JENNIFER DOWLING JT Performed By: #### 5 0190-8, 2131-12, 2275-07, 2283-11 #### [facility] CLIA [id number] [address] [place] [address] [place] Chloride [Moles/Vol] 101 mmol/L Normal 97-105 [facility] Comment on above: Order Comment: Speci men Type: BLOOD SPECIMEN Ordering Facility: [facility] Address: [address] [place] [address] Performed By: #### 5 0190-8, 2-9, 6-4, 2284-8 #### [facility] CLIA [id number] [address] [place] [address] [place] CO2 [Moles/Vol] 24 mmol/L Normal 22-30 [facility] Comment on above: Order Comment: Speci men Type: BLOOD SPECIMEN Ordering Facility: [facility] Address: [address] [place] [address] Performed By: #### 5 0190-8, 2131-9, 6-4, 2284-8 #### [facility] CLIA [id number] [address] [place] [address] [place] Creatinine [Mass/Vol] 0.78 mg/dL Normal 0.58-0.96 [facility] Comment on above: Order Comment: Speci men Type: BLOOD SPECIMEN Ordering Facility: [facility] Address: [address] [place] [address] Performed By: #### 5 0190-8, 9, 6-4, 228-8 #### [facility] CLIA [id number] [address] [place] [address] [place] Creatinine and Glomerular filtration rate.predicted panel (S/P/Bld) 100 mL/min/1.73m??? Normal >=60 [facility] Comment on above: Order Comment: Speci men Type: BLOOD SPECIMEN [facility]ing Facility: [facility] Address: [address] [place] [address] Result Comment: Hawa mated Glomerular Filtration Rate [...] #### 5 0190-8, 2131-12, 2275-07, 2283-11 #### [facility] CLIA [id number] [address] [place] [address] [place] Glucose [Mass/Vol] 100 mg/dL High 74-99 [facility] Comment on above: Order Comment: Cesar redd Type: BLOOD SPECIMEN Ordering Facility: [facility] Address: [address] [place] [address] Result Comment: The [place] Diabetes [employer] (ADA) provides guidance for cutoff [...] Standards of Medical Care in Diabetes 2016, [place] [employer]. Diabetes Care. 2016.39(Suppl 1). Performed By: #### 5 0190-8, 2131-12, 2275-07, 2283-11 #### [facility] CLIA [id number] [address] [place] [address] [place] Potassium [Moles/Vol] 3.8 mmol/L Normal 3.7-5.1 [facility] Comment on above: Order Comment: Cesar redd Type: BLOOD SPECIMEN Ordering Facility: [facility] Address: [address] [place] [address] Performed By: #### 5 0190-8, 2131-12, 2275-07, 2283-11 #### [facility] CLIA [id number] [address] [place] [address] [place] Protein [Mass/Vol] 8.0 g/dL Normal 6.3-8.0 [facility] Comment on above: Order Comment: Speci men Type: BLOOD SPECIMEN Ordering Facility: [facility] Address: [address] [place] [address] Performed By: #### 5 0190-8, 9, 2275-4, 8 #### [facility] CLIA [id number] [address] [place] [address] [place] Sodium [Moles/Vol] 137 mmol/L Normal 136-144 [facility] Comment on above: Order Comment: Speci men Type: BLOOD SPECIMEN Ordering Facility: [facility] Address: [address] [place] [address] Performed By: #### 5 0190-8, 9, 2275-4, 8 #### [facility] CLIA [id number] [address] [place] [address] [place] Urea nitrogen [Mass/Vol] 10 mg/dL Normal 7-21 [facility] Comment on above: Order Comment: Speci men Type: BLOOD SPECIMEN Ordering Facility: [facility] Address: [address] [place] [address] Performed By: #### 5 0190-8, 9, 2275-4, 8 #### [facility] CLIA [id number] [address] [place] [address] [place] Ferritin SerPl-mCncon 2023 Ferritin [Mass/Vol] 52.2 ng/mL Normal 14.7-205.1 [facility] Comment on above: Order Comment: Speci men Type: BLOOD SPECIMEN Ordering Facility: [facility] Address: [address] [place] [address] Performed By: #### 5 0190-8, 2131-9, 2275-4, 8 #### [facility] CLIA [id number] [address] [place] [address] [place] Folate SerPl-ncon 05-28-19 Folate [Mass/Vol] ng/mL Normal >4.7 [facility] Comment on above: Order Comment: Speci men Type: BLOOD SPECIMEN Ordering Facility: [facility] Address: [address] [place] [address] Result Comment: A re sult of > 20 ng/mL is not necessarily indicative of a pathologic or treatable condition: it reflects a limitation of the test methodology. Assay reference range: 4.8 to 24.2 ng/mL. Suitable for detection of folate deficiency. Reference: Folate III (Folate III) [package insert V 1.0 Montenegrin]. [facility], [place], [place]: February 2015. Performed By: #### 5 0190-8, 9, 2275-4, 2283-11 #### [facility] CLIA [id number] [address] [place] [address] [place] Iron and Iron binding capaci panel 05-28-2023 Iron [Mass/Vol] 68 ug/dL Normal 41-186 [facility] Comment on above: Order Comment: Speci men Type: BLOOD SPECIMEN Ordering Facility: [facility] Address: [address] [place] [address] Performed By: #### 5 0190-8, 9, 2275-07, 2283-11 #### [facility] CLIA [id number] [address] [place] [address] [place] Iron binding capacity [Mass/Vol] 386 ug/dL Normal 232-386 [facility] Comment on above: Order Comment: Speci men Type: BLOOD SPECIMEN Ordering Facility: [facility] Address: [address] [place] [address] Performed By: #### 5 0190-8, 9, 4, 2283-11 #### [facility] CLIA [id number] [address] [place] [address] [place] Iron/TIBC [Molar ratio] 17.6 % Normal 15.0-57.0 [facility] Comment on above: Order Comment: Speci men Type: BLOOD SPECIMEN Ordering [facility]: [facility] Address: [address] [place] [address] Performed By: #### 5 0190-8, 2-9, 6-4, 8 #### [facility] CLIA [id number] [address] [place] [address] [place] Vit [facility]12 [facility] Cobalamin (Vitamin B12) [Mass/Vol] 370 pg/mL Normal 232-1245 [facility] Comment on above: Order Comment: Speci men Type: BLOOD SPECIMEN Ordering [facility] Address: [address] [place] [address] Performed By: #### 5 0190-8, 2131-9, 6-4, 2283-11 #### [facility] CLIA [id number] [address] [place] [address] [place] Ambulatory Visit Summaryon 0 [...] EDT With: Evans CASAS DO, FAAFP Where: [facility] Primary Care Normal [facility] Family Medicine Office/Clini c Noteon 05-25-2023 Family [...] Benadryl. 2. 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 [...] 25 minutes. Follow-up With When Contact Information Evans CASAS DO, FAAFP, CHRIS, PED In 2 months [address], [facility] [place] [address]- Additional Instructions: Patient Education Eustachian Tube Dysfunction Dyshidrotic Eczema Allergies, Tadeo (more content not included)... Normal [facility] Comment on above: Result Comment: Elec tronically Signed By: Evans CASAS DO, FAAFP\.br\Date and Time Signed: 05/25/23 12:02 EST Patient [...] ears completely after. General instructions ? Take jxwe-vtl-wubnxyc and prescription medicines only as told by [...] treated w (more content not included)... Normal [facility] C Urineon 05-03-2023 Bacteria identified Cx Nom (U) Microbiology PROCEDURE: Urine Culture [R1] SOURCE: U Random BODY SITE: COLLECTED DATE/TIME: 05/01/2023 18:00 EST RECEIVED DATE/TIME: 05/01/2023 18:08 EST START DATE/TIME: 05/01/2023 18:08 EST FREE TEXT SOURCE: PRAVEEN RESENDEZ FAAFP, Evans CASAS DO FAAFP, Evans Tony FINAL REPORTS Final Report [] Verified Date/Time: 05/03/2023 07:00 EST <10,000 cfu/ml Mixed skin contaminants Performing Locations R1: This test was performed at: [facility], [address] [place] [address], [address] , [place], Normal [facility] Comment on above: Performed By: #### 2 435609 ####[address] [address] Consent for Treatmenton Consent for Treatment [id number] Normal [facility] Urinalysison 05-01-2023 Bacteria LM Ql (Urine sed) TRACE Normal Trace [facility] Comment on above: Performed By: #### 1 [id number] ####[address] [address] Bilirubin Ql (U) Negative Normal Negative [facility] Comment on above: Performed By: #### 1 [id number] ####[address] [address] Clarity (U) CLOUDY Abnormal Clear [facility] Comment on above: Performed By: #### 1 7056041 ####[address] [address] Color (U) YELLOW Normal Yellow [facility] Comment on above: Performed By: #### 1 [id number] ####[address] [address] Epithelial cells.squamous LM.HPF (Urine sed) [#/Area] /[HPF] Normal 0-2 [facility] Comment on above: Performed By: #### 1 [id number] ####[address] [address] Glucose Test strip (U) [Mass/Vol] Negative Normal Negative [facility] Comment on above: Performed By: #### 1 [id number] ####[address] [address] Hemoglobin Ql (U) Negative Normal Negative [facility] Comment on above: Performed By: #### 1 [id number] ####[address] [address] Ketones (U) [Mass/Vol] Negative Normal Negative [facility] Comment on above: Performed By: #### 1 [id number] ####[address] [address] Ovid.plasma/Lithi um.RBC (Bld) [Mass ratio] 0-3 Normal 0-3 [facility] Comment on above: Performed By: #### 1 1014169 ####[address] [address] Nitrite Ql (U) Negative Normal Negative [facility] Comment on above: Performed By: #### 1 [id number] ####[address] [address] pH (U) 6.0 [pH] Invalid Interpretation Code 5.0-9.0 [facility] Comment on above: Performed By: #### 1 1005938 ####[address] [address] Protein (U) [Mass/Vol] Negative Normal Negative [facility] Comment on above: Performed By: #### 1 5391475 ####[address] [address] Specific gravity (U) [Rel density] <=1.005 Invalid Interpretation Code 1.005-1.030 [facility] Comment on above: Performed By: #### 1 [id number] ####[address] [address] Type of Urine collection method Clean Catch Normal [facility] Comment on above: Performed By: #### 1 [id number] ####[address] [address] Urobilinogen Qn (U) 0.2 {Nicole'U}/dL Normal 0.0-1.0 [facility] Comment on above: Performed By: #### 1 0037837 ####[facility] [address] [place] [address] WBC Auto Ql (U) TRACE Abnormal Negative [facility] Comment on above: Performed By: #### 1 [id number] ####[facility] [address] [place] [address] WBC LM.HPF (Urine sed) [#/Area] 0-5 Normal 0-5 [facility] Comment on above: Performed By: #### 1 [id number] ####[facility] [address] [place] [address] Ambulatory Visit Summaryon 1 Ambulatory Visit Summary MADHU RENDON :1985 Visit Date:04/27/2023 Ambulatory Visit Instructions Your [...] EST With: Evans CASAS DO, FAAFP Where: [facility] Primary Care Normal [facility] CHEMISTRYOrdered By: SYSTEM SYSTEM on 04-27-2023 TSH [...] has been having diarrhea since Sunday before Stephanie, nonbloody with some associated stomach pain. She has been having some burning in her nipples when she is breast-feeding and wants her thyroid checked. Muscle aches and pains like flu Still breast feeding. No loss of taste nor smell. [id number] while taking Glucophage XR 500 mg p.o. [...] Push fluids and Tylenol and or ibuprofen pvso-jsr-smvbvnp as directed. Patient does not appear ill [...] weight manag (more content not included)... Normal [facility] Comment on above: Result Comment: Elec tronically [...] plan? Your health care provider or certified nurses aide can help you make a plan for [...] stroke). Where to find more information ? [place] [employer]: www.diabetes.org Summary ? Exercising regularly is important for overall health, especially for people who have diabetes mellitus. ? Exercising has many health benefits. It increases muscle strength and bone density and reduces body fat and stress. It also lowers and controls blood glucose. ? Your health care provider or certified nurses aide can help you make an activity plan [...] provider. Document Revised: 01/12/2020 Document Reviewed: 01/12/2020 [employer] Patient Education ? 2022 [employer] Preventing Hypoglycemia Hypoglycemia occurs when the level of sugar (glucose) in the blood is too low. Hypoglycemia can happen in people who do or do not have diabetes (diabetes (more content not included)... Normal [facility] TSHon 04-27-2023 TSH Qn 4.04 m[IU]/L Normal 0.34-5.60 [facility] Comment on above: Performed By: #### 2 [id number] ####[facility] [address] [place] [address] 25(OH)D3 [facility] 2022 25-hydroxyvitamin D3 [Mass/Vol] 23.6 ng/mL Low 31.0-80.0 [facility] Comment on above: Order Comment: Speci men Type: BLOOD SPECIMEN [facility]ing [facility] Address: [address] [place] [address] Result Comment: Clas sification of 25 [place] Vitamin D status: Deficiency/Insufficiency: < or = 30 ng/ml. Sufficiency/Optimal Levels: 31-80 ng/mL Toxicity: > 100 ng/mL. Test performed by chemiluminescent immunoassay. Performed By: #### 5 0190-8, 2132-9, 2276-4, 2284-8 #### [facility] CLIA [id number] [address] [place] [address] [place] [address] [place] CBC W Auto Differential pane l (Bld)on 03-13-2023 Basophils (Bld) [#/Vol] 0.03 10*3/uL Normal <0.11 [facility] Comment on above: Order Comment: Speci men Type: BLOOD SPECIMEN [facility]ing [facility] Address: [address] [place] [address] Performed By: #### 5 0190-8, 9, 2275-4, 8 #### [facility] CLIA [id number] [address] [place] [address] [place] Basophils/100 WBC (Bld) 0.4 % Normal [facility] Comment on above: Order Comment: Speci men Type: BLOOD SPECIMEN Ordering Facility[facility] Address: [address] [place] [address] Performed By: #### 5 0190-8, 9, 4, 8 #### [facility] CLIA [id number] [address] [place] [address] [place] Differential cell count method Nom (Bld) Auto Normal [facility] Comment on above: Order Comment: Speci men Type: BLOOD SPECIMEN Ordering Facility: [facility] Address: [address] [place] [address] Performed By: #### 5 0190-8, 9, 4, 8 #### [facility] CLIA [id number] [address] [place] [address] [place] Eosinophils (Bld) [#/Vol] 0.05 10*3/uL Normal <0.46 [facility] Comment on above: Order Comment: Speci men Type: BLOOD SPECIMEN Ordering Facility[facility] Address: [address] [place] [address] Performed By: #### 5 0190-8, 9, 4, 8 #### [facility] CLIA [id number] [address] [place] [address] [place] Eosinophils/100 WBC (Bld) 0.7 % Normal [facility] Comment on above: Order Comment: Speci men Type: BLOOD SPECIMEN Ordering Facility: [facility] Address: [address] [place] [address] Performed By: #### 5 0190-8, 9, 2275-4, 8 #### [facility] CLIA [id number] [address] [place] [address] [place] Erythrocyte distribution width (RBC) [Ratio] 13.3 % Normal 11.5-15.0 [facility] Comment on above: Order Comment: Speci men Type: BLOOD SPECIMEN Ordering Facility[facility] Address: [address] [place] [address] Performed By: #### 5 0190-8, 9, 4, 8 #### [facility] CLIA [id number] [address] [place] [address] [place] Hematocrit (Bld) [Volume fraction] 39.3 % Normal 36.0-46.0 [facility] Comment on above: Order Comment: Speci men Type: BLOOD SPECIMEN Ordering Facility[facility] Address: [address] [place] [address] Performed By: #### 5 0190-8, 9, 4, 8 #### [facility] CLIA [id number] [address] [place] [address] [place] Hemoglobin (Bld) [Mass/Vol] 13.3 g/dL Normal 11.5-15.5 [facility] Comment on above: Order Comment: Speci men Type: BLOOD SPECIMEN Ordering Facility[facility] Address: [address] [place] [address] Performed By: #### 5 0190-8, 9, 2275-4, 8 #### [facility] CLIA [id number] [address] [address] [place] Immature granulocytes (Bld) [#/Vol] 10*3/uL Normal <0.10 [facility] Comment on above: Order Comment: Speci men Type: BLOOD SPECIMEN Ordering Facility[facility] Address: [address] [place] [address] Performed By: #### 5 0190-8, 2131-9, 4, 8 #### [facility] CLIA [id number] [address] [place] [address] [place] Immature granulocytes/100 WBC (Bld) 0.3 % Normal [facility] Comment on above: Order Comment: Speci men Type: BLOOD SPECIMEN Ordering Facility: [facility] Address: [address] [place] [address] Performed By: #### 5 0190-8, 9, 2275-07, 2283-11 #### [facility] CLIA [id number] [address] [place] [address] [place] Lymphocytes (Bld) [#/Vol] 3.05 10*3/uL Normal 1.00-4.00 [facility] Comment on above: Order Comment: Speci men Type: BLOOD SPECIMEN Ordering Facility[facility] Address: [address] [place] [address] Performed By: #### 5 0190-8, 9, 2275-07, 2283-11 #### [facility] CLIA [id number] [address] [place] [address] [place] Lymphocytes/100 WBC (Bld) 40.4 % Normal [facility] Comment on above: Order Comment: Speci men Type: BLOOD SPECIMEN Ordering Facility: [facility] Address: [address] [place] [address] Performed By: #### 5 0190-8, 9, 4, 8 #### [facility] CLIA [id number] [address] [place] [address] [place] MCH (RBC) [Entitic mass] 29.2 pg Normal 26.0-34.0 [facility] Comment on above: Order Comment: Speci men Type: BLOOD SPECIMEN Ordering Facility: [facility] Address: [address] [place] [address] Performed By: #### 5 0190-8, 9, 2275-07, 2283-11 #### [facility] CLIA [id number] [address] [place] [address] [place] MCHC (RBC) [Mass/Vol] 33.8 g/dL Normal 30.5-36.0 [facility] Comment on above: Order Comment: Speci men Type: BLOOD SPECIMEN Ordering Facility: [facility] Address: [address] [place] [address] Performed By: #### 5 0190-8, 9, 2275-07, 2283-11 #### [facility] CLIA [id number] [address] [place] [address] [place] MCV (RBC) [Entitic vol] 86.2 fL Normal 80.0-100.0 [facility] Comment on above: Order Comment: Speci men Type: BLOOD SPECIMEN Ordering Facility: [facility] Address: [address] [place] [address] Performed By: #### 5 0190-8, 9, 2275-07, 2283-11 #### [facility] CLIA [id number] [address] [place] [address] [place] Monocytes (Bld) [#/Vol] 0.63 10*3/uL Normal <0.87 [facility] Comment on above: Order Comment: Speci men Type: BLOOD SPECIMEN Ordering Facility: [facility] Address: [address] [place] [address] Performed By: #### 5 0190-8, 9, 2275-07, 2283-11 #### [facility] CLIA [id number] [address] [place] [address] [place] Monocytes/100 WBC (Bld) 8.3 % Normal [facility] Comment on above: Order Comment: Speci men Type: BLOOD SPECIMEN Ordering Facility: [facility] Address: [address] [place] [address] Performed By: #### 5 0190-8, 9, 2275-07, 2283-11 #### [facility] CLIA [id number] [address] [place] [address] [place] Neutrophils (Bld) [#/Vol] 3.77 10*3/uL Normal 1.45-7.50 [facility] Comment on above: Order Comment: Speci men Type: BLOOD SPECIMEN Ordering Facility: [facility] Address: [address] [place] [address] Performed By: #### 5 0190-8, 9, 2275-07, 2283-11 #### [facility] CLIA [id number] [address] [place] [address] [place] Neutrophils/100 WBC (Bld) 49.9 % Normal [facility] Comment on above: Order Comment: Speci men Type: BLOOD SPECIMEN Ordering Facility: [facility] Address: [address] [place] [address] Performed By: #### 5 0190-8, 9, 2275-07, 2283-11 #### [facility] CLIA [id number] [address] [place], [place] [address] [place] Nucleated RBC (Bld) [#/Vol] 10*3/uL Normal <0.01 [facility] Comment on above: Order Comment: Speci men Type: BLOOD SPECIMEN [facility]ing Facility[facility] Address: [address] [place] [address] Performed By: #### 5 0190-8, 9, 2275-07, 2283-11 #### [facility] CLIA [id number] [address] [place], [place] [id number] [place] Nucleated RBC/100 WBC (Bld) [Ratio] 0.0 /100 WBC Normal [facility] Comment on above: Order Comment: Speci men Type: BLOOD SPECIMEN [facility]ing Facility: [facility] Address: [address] [place] [address] Performed By: #### 5 0190-8, 9, 2275-07, 2283-11 #### [facility] CLIA [id number] [address] [place] [address] [place] Platelet mean volume (Bld) [Entitic vol] 9.7 fL Normal 9.0-12.7 [facility] Comment on above: Order Comment: Speci men Type: BLOOD SPECIMEN [facility]ing Facility: [facility] Address: [address] [place] [address] Performed By: #### 5 0190-8, 9, 2275-07, 2283-11 #### [facility] CLIA [id number] [address] [place] [address] [place] Platelets (Bld) [#/Vol] 335 10*3/uL Normal 150-400 [facility] Comment on above: Order Comment: Speci men Type: BLOOD SPECIMEN [facility]ing [facility]: [facility] Address: [address] [place] [address] Performed By: #### 5 0190-8, 9, 2275-07, 8 #### [facility] CLIA [id number] [address] [place] [address] [place] RBC (Bld) [#/Vol] 4.56 10*6/uL Normal 3.90-5.20 [facility] Comment on above: Order Comment: Speci men Type: BLOOD SPECIMEN [facility]ing Facility: [facility] Address: [address] [place] [address] Performed By: #### 5 0190-8, 9, 2275-4, 8 #### [facility] CLIA [id number] [address] [place] [address] [place] WBC (Bld) [#/Vol] 7.55 10*3/uL Normal 3.70-11.00 [facility] Comment on above: Order Comment: Speci men Type: BLOOD SPECIMEN [facility]ing Facility: [facility] Address: [address] [place] [address] Performed By: #### 5 0190-8, 9, 2275-4, 8 #### [facility] CLIA [id number] [address] [place] [address] [place] Comprehensive metabolic 2000 panelon 03-13-2023 Albumin [Mass/Vol] 4.9 g/dL Normal 3.9-4.9 [facility] Comment on above: Order Comment: Speci men Type: BLOOD SPECIMEN [facility]ing [facility] Address: [address] [place] [address] Performed By: #### 5 0190-8, 9, 4, 8 #### [facility] CLIA [id number] [address] [place] [address] [place] ALP [Catalytic activity/Vol] 88 U/L Normal 34-123 [facility] Comment on above: Order Comment: Speci men Type: BLOOD SPECIMEN [facility]ing [facility] Address: [address] [place] [address] Performed By: #### 5 0190-8, 9, 2275-4, 8 #### [facility] CLIA [id number] [address] [place] [address] [place] ALT [Catalytic activity/Vol] 25 U/L Normal 7-38 [facility] Comment on above: Order Comment: Speci men Type: BLOOD SPECIMEN [facility]ing [facility] Address: [address] [place] [address] Performed By: #### 5 0190-8, 2131-9, 6-4, 2284-8 #### [facility] CLIA [id number] [address] [place] [address] [place] Anion gap [Moles/Vol] 12 mmol/L Normal 9-18 [facility] Comment on above: Order Comment: Speci men Type: BLOOD SPECIMEN Ordering [facility]: [facility] Address: [address] [place] [address] Performed By: #### 5 0190-8, 2131-9, 6-4, 2284-8 #### [facility] CLIA [id number] [address] [place] [address] [place] AST [Catalytic activity/Vol] 18 U/L Normal 13-35 [facility] Comment on above: Order Comment: Speci men Type: BLOOD SPECIMEN Ordering [facility]: [facility] Address: [address] [place] [address] Performed By: #### 5 0190-8, 2131-9, 6-4, 2284-8 #### [facility] CLIA [id number] [address] [place] [address] [place] Bilirubin [Mass/Vol] 0.2 mg/dL Normal 0.2-1.3 [facility] Comment on above: Order Comment: Speci men Type: BLOOD SPECIMEN [facility]ing [facility] Address: [address] [place] [address] Performed By: #### 5 0190-8, 2131-9, 6-4, 2284-8 #### [facility] CLIA [id number] [address] [place] [address] [place] Calcium [Mass/Vol] 10.0 mg/dL Normal 8.5-10.2 [facility] Comment on above: Order Comment: Speci men Type: BLOOD SPECIMEN Ordering [facility]: [facility] Address: [address] [place], [place] [address] Performed By: #### 5 0190-8, 2131-9, 6-4, 2284-8 #### [facility] CLIA [id number] [address] [place] [address] [place] Chloride [Moles/Vol] 101 mmol/L Normal 97-105 [facility] Comment on above: Order Comment: Speci men Type: BLOOD SPECIMEN [facility]ing [facility] Address: [address] [place] [address] Performed By: #### 5 0190-8, 2131-9, 6-4, 228-8 #### [facility] CLIA [id number] [address] [place] [address] [place] CO2 [Moles/Vol] 23 mmol/L Normal 22-30 [facility] Comment on above: Order Comment: Speci men Type: BLOOD SPECIMEN Ordering [facility] Address: [address] [place] [address] Performed By: #### 5 0190-8, 2131-9, 6-4, 2284-8 #### [facility] CLIA [id number] [address] [place] [address] [place] Creatinine [Mass/Vol] 0.81 mg/dL Normal 0.58-0.96 [facility] Comment on above: Order Comment: Speci men Type: BLOOD SPECIMEN [facility] Address: [address] [place] [address] Performed By: #### 5 0190-8, 2131-9, 6-4, 228-8 #### [facility] CLIA [id number] [address] [place] [address] [place] Creatinine and Glomerular filtration rate.predicted panel (S/P/Bld) 96 mL/min/1.73m??? Normal >=60 [facility] Comment on above: Order Comment: Speci men Type: BLOOD SPECIMEN Ordering Facility: [facility] Address: [facility] [place] [address] Result Comment: Hawa mated Glomerular Filtration Rate [...] #### 5 0190-8, 9, 2275-07, 2283-11 #### [facility] CLIA [id number] [address] [place] [address] [place] Glucose [Mass/Vol] 87 mg/dL Normal 74-99 [facility] Comment on above: Order Comment: Cesar redd Type: BLOOD SPECIMEN [facility] Address: [address] [place] [address] Result Comment: The [place] [employer] (ADA) provides guidance for cutoff [...] Standards of Medical Care in Diabetes 2016, [place] [employer]. Diabetes Care. 2016.39(Suppl 1). Performed By: #### 5 0190-8, 9, 2275-07, 2283-11 #### [facility] CLIA [id number] [address] [place] [address] [place] Potassium [Moles/Vol] 4.3 mmol/L Normal 3.7-5.1 [facility] Comment on above: Order Comment: Cesar redd Type: BLOOD SPECIMEN Order[facility] Address: [address] [place] [address] Performed By: #### 5 0190-8, 2131-9, 2275-4, 8 #### [facility] CLIA [id number] [address] [place] [address] [place] Protein [Mass/Vol] 7.7 g/dL Normal 6.3-8.0 [facility] Comment on above: Order Comment: Speci men Type: BLOOD SPECIMEN [facility]ing [facility] Address: [address] [place] [address] Performed By: #### 5 0190-8, 2131-9, 2275-4, 8 #### [facility] CLIA [id number] [address] [place] [address] [place] Sodium [Moles/Vol] 136 mmol/L Normal 136-144 [facility] Comment on above: Order Comment: Speci men Type: BLOOD SPECIMEN Ordering [facility] Address: [address] [place] [address] Performed By: #### 5 0190-8, 2131-9, 4, 8 #### [facility] CLIA [id number] [address] [place] [address] [place] Urea nitrogen [Mass/Vol] 11 mg/dL Normal 7-21 [facility] Comment on above: Order Comment: Speci men Type: BLOOD SPECIMEN Ordering [facility]: [facility] Address: [address] [place] [address] Performed By: #### 5 0190-8, 2131-9, 2275-4, 8 #### [facility] CLIA [id number] [address] [place] [address] [place] Ferritin SerPl-mCncon 2022 Ferritin [Mass/Vol] 58.0 ng/mL Normal 14.7-205.1 [facility] Comment on above: Order Comment: Speci men Type: BLOOD SPECIMEN [facility]ing [facility]: [facility] Address: [address] [place], [place] [address] Performed By: #### 5 0190-8, 9, 2275-07, 2283-11 #### [facility] CLIA [id number] [address] [place], [place] [address] [place] Folate SerPl-ncon 03-13-20 Folate [Mass/Vol] 18.5 ng/mL Normal >4.7 [facility] Comment on above: Order Comment: Speci men Type: BLOOD SPECIMEN [facility] Address: [address] [place] [address] Performed By: #### 5 0190-8, 2131-12, 2275-07, 2283-11 #### [facility] CLIA [id number] [address] [place] [address] [place] Iron and Iron binding capaci ty panel 03-13-2023 Iron [Mass/Vol] 55 ug/dL Normal 41-186 [facility] Comment on above: Order Comment: Speci men Type: BLOOD SPECIMEN [facility] Address: [address] [place] [address] Performed By: #### 5 0190-8, 2131-12, 2275-07, 2283-11 #### [facility] CLIA [id number] [address] [place] [address] [place] Iron binding capacity [Mass/Vol] 365 ug/dL Normal 232-386 [facility] Comment on above: Order Comment: Speci men Type: BLOOD SPECIMEN [facility]ing [facility] Address: [address] [place] [address] Performed By: #### 5 0190-8, 2131-12, 2275-07, 2283-11 #### [facility] CLIA [id number] [address] [place], [place] [address] [place] Iron/TIBC [Molar ratio] 15.1 % Normal 15.0-57.0 [facility] Comment on above: Order Comment: Speci men Type: BLOOD SPECIMEN [facility] Address: [address] [place] [address] Performed By: #### 5 0190-8, 9, 6-4, 8 #### [facility] CLIA [id number] [address] [place] [address] OF [facility] Vit B12 [facility] 11-14-2 023 Cobalamin (Vitamin B12) [Mass/Vol] 376 pg/mL Normal 232-1245 [facility] Comment on above: Order Comment: Speci men Type: BLOOD SPECIMEN [facility] Address: [address] [place] [address] Performed By: #### 5 0190-8, 9, 4, 2283-11 #### [facility] CLIA [id number] [address] [place] [address] [place] Ambulatory Visit Summaryon 1 Ambulatory [...] PED When: In 2 months Where: [address] [place] [address]- You Need to Complete the Following HgbA1c, [...] Suspected COVID-19 virus infection Vaginal tabitha Normal [facility] Family Medicine Office/Clini c Noteon 02-15-2023 Family Medicine Office/Clinic Note Chief Complaint States since Sunday evening her right ear is draining and is a little painful History of Present Illness [employer] draining since Sunday evening and a little [...] pain of ear shake well before using, [facility] 1986, 168, cm, 02/15/23 9:49:00 EDT, [...] in , unspecified control) 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 She is continuing 500 mg of metformin [...] PRAVEEN Johnson (more content not included)... Normal [facility] Comment on above: Result Comment: Elec tronically Signed By: Evans CASAS DO, FAAFP\.br\Date and Time Signed: 02/15/23 10:13 EDT Patient Educationon 02-16-20 Patient Education Caregiving Ear Drops, Adult Your [...] cannot use soap and water, use hand emotional disabilities teacher. 2. Make sure your ears are clean [...] cannot use soap and water, use hand emotional disabilities teacher. Follow these instructions at home: ? Use [...] provider. Document Revised: 02/11/2020 Document Reviewed: 02/11/2020 [employer] Patient Education ? 2022 [employer] Infectious Disease Otitis Externa Otitis externa [...] you start to feel better. ? Take lkwh-wkv-hdkzlcm and prescription medicines only as told by your doctor. ? Avoid getting water in your ears as told by your doctor. You may be told to avoid swimming or water sports for a few days. ? Keep all follow-up visits. How is this prevented? ? Keep your ears dry. Use the corner o (more content not included)... Normal [facility] Patient Educationon 12-23-19 Patient Education Immunology Fatigue [...] these instructions at home: Medicines ? Take hgda-etc-jpeyswi and prescription medicines only as told by [...] the National Suicide Prevention Lifeline at or 517. This is open 24 hours a day. ? Text the Crisis Text Line at 898947. Summary ? If you have fatigue, you [...] provider. Document Revised: 02/06/2022 Document Reviewed: 02/06/2022 [employer] Patient Education ? 2022 [employer] Urology Urodynamic Testing Urodynamic tests are [...] urine (inco (more content not included)... Normal [facility] CHEMISTRYOrdered By: SYSTEM SYSTEM on 09-26-2022 Free [...] 10 - 20 [facility] HEMATOLOGYOrdered By: [employer] SYSTEM on 09-26-2022 Basophils/100 WBC (Bld) 0.6 [...] 05-09-2022 BASO # 0.0 103/ul Normal 0.0-0.1 [facility] Comment on above: Performed By: #### H IV12 #### [facility] [address] [address] [address] Edward Gill Basophils/100 WBC (Bld) 0.4 % Normal 0.2-2.0 [facility] Comment on above: Performed By: #### H IV12 #### [facility] [address] [place] [address] Dr. Edward Gill EO # 0.1 103/ul Normal 0.0-0.7 [facility] Comment on above: Performed By: #### H IV12 #### [facility] [address] [place] [address] Dr. Edward Gill Eosinophils/100 WBC (Bld) 1.3 % Normal 0.9-7.0 [facility] Comment on above: Performed By: #### H IV12 #### [facility] [address] [place] [address] Dr. Edward Gill Erythrocyte distribution width (RBC) [Ratio] 16.6 % Critically high 11.0-15.0 [facility] Comment on above: Performed By: #### H IV12 #### [facility] [address] [place] [address] Dr. Edward Gill Hematocrit (Bld) [Volume fraction] 30.2 % Critically low 36.0-48.0 [facility] Comment on above: Performed By: #### H IV12 #### [facility] [address] [place] [address] Dr. Edward Gill Hemoglobin (Bld) [Mass/Vol] 10.5 g/dL Critically low 12.0-16.0 [facility] Comment on above: Performed By: #### H IV12 #### [facility] [address] [place] [address] Dr. Edward Gill IG # 0.04 10e3/ul Critically high 0.00-0.03 [facility] Comment on above: Performed By: #### H IV12 #### [facility] [address] [place] [address] Dr. Edward Gill IG % 0.4 % Normal 0.0-0.5 [facility] Comment on above: Performed By: #### H IV12 #### [facility] [address] [address] [address] Edward Gill LYMPH # 3.1 103/ul Normal 1.2-3.8 [facility] Comment on above: Performed By: #### H IV12 #### [facility] [address] [address] [address] Edward Gill Lymphocytes/100 WBC (Bld) 34.2 % Normal 20.5-60.0 [facility] Comment on above: Performed By: #### H IV12 #### [facility] [address] [address] [address] Edward Gill MANUAL DIFF REQ NO Normal [facility] Comment on above: Performed By: #### H IV12 #### [facility] [address] [place] [address] Dr. Edward Gill MCH (RBC) [Entitic mass] 30.3 pg Normal 26.7-34.0 [facility] Comment on above: Performed By: #### H IV12 #### [facility] [address] [place] [address] Dr. Edward Gill MCHC (RBC) [Mass/Vol] 34.8 g/dL Normal 29.9-35.2 [facility] Comment on above: Performed By: #### H IV12 #### [facility] [address] [place] [address] Dr. Edward Gill MCV (RBC) [Entitic vol] 87.0 fL Normal 81.0-99.0 [facility] Comment on above: Performed By: #### H IV12 #### [facility] [address] [address] [address] Edward Gill MONO # 0.7 103/ul Normal 0.3-0.8 [facility] Comment on above: Performed By: #### H IV12 #### [facility] [address] [place] [address] Dr. Edward Gill Monocytes/100 WBC (Bld) 7.5 % Normal 1.7-12.0 [facility] Comment on above: Performed By: #### H IV12 #### [facility] [address] [place] [address] Dr. Edward Gill NEUT # 5.0 103/ul Normal 1.4-6.5 [facility] Comment on above: Performed By: #### H IV12 #### [facility] [address] [place] [address] Dr. Edward Gill Neutrophils/100 WBC (Bld) 56.2 % Normal 43.0-75.0 [facility] Comment on above: Performed By: #### H IV12 #### [facility] [address] [place] [address] Dr. Edward Gill Platelet mean volume (Bld) [Entitic vol] 9.8 fL Normal 9.5-13.5 [facility] Comment on above: Performed By: #### H IV12 #### [facility] [address] [place] [address] Dr. Edward Gill PLT 238 103/ul Normal 150-450 [facility] Comment on above: Performed By: #### H IV12 #### [facility] [address] [place] [address] Dr. Edward Gill RBC 3.47 106/ul Critically low 4.20-5.40 [facility] Comment on above: Performed By: #### H IV12 #### [facility] [address] [place] [address] Dr. Edward Gill WBC 9.0 103/ul Normal 4.0-11.0 [facility] Comment on above: Performed By: #### H IV12 #### [facility] [address] [place] [address] Dr. Edward Gill SCREENon 05-09-2022 SCREEN Negative Normal [facility] Comment on above: Performed By: #### F ETSCRN #### [facility] [address] [place] [address] Dr. Edward Gill DIRECT COOMBSon 05-08-2022 DIRECT ALEJANDRA Negative Normal [facility] Comment on above: Performed By: #### D IRCMB #### [facility] [address] [place] [address] Dr. Edward Gill POINT OF CARE GLUCOSEon Glucose [Mass/Vol] 117 mg/dL Critically high 74-106 [facility] Comment on above: Performed By: #### P OCGLUC ####[facility] [id number] [address]Dr. Edward Gill TYPE AND SCREENon 05-08-2022 TYPE AND SCREEN Negative Normal [facility] Comment on above: Performed By: #### T NS #### [facility] [address] [address] [address] Edward Gill CBC AUTO DIFFon 05-07-2022 BASO # 0.0 103/ul Normal 0.0-0.1 [facility] Comment on above: Performed By: #### H IV12 #### [facility] [address] [address] [address] Edward Gill Basophils/100 WBC (Bld) 0.2 % Normal 0.2-2.0 [facility] Comment on above: Performed By: #### H IV12 #### [facility] [address] [address] [address] Edward Gill EO # 0.0 103/ul Normal 0.0-0.7 [facility] Comment on above: Performed By: #### H IV12 #### [facility] [address] [address] [address] Edward Gill Eosinophils/100 WBC (Bld) 0.5 % Critically low 0.9-7.0 [facility] Comment on above: Performed By: #### H IV12 #### [facility] [address] [address] [address] Edward Gill Erythrocyte distribution width (RBC) [Ratio] 16.1 % Critically high 11.0-15.0 [facility] Comment on above: Performed By: #### H IV12 #### [facility] [address] [address] [address] Edward Gill Hematocrit (Bld) [Volume fraction] 32.1 % Critically low 36.0-48.0 [facility] Comment on above: Performed By: #### H IV12 #### [facility] [address] [place] [address] Dr. Edward Gill Hemoglobin (Bld) [Mass/Vol] 11.7 g/dL Critically low 12.0-16.0 [facility] Comment on above: Performed By: #### H IV12 #### [facility] [address] [place] [address] Dr. Edward Gill IG # 0.04 10e3/ul Critically high 0.00-0.03 [facility] Comment on above: Performed By: #### H IV12 #### [facility] [address] [place] [address] Dr. Edward Gill IG % 0.5 % Normal 0.0-0.5 [facility] Comment on above: Performed By: #### H IV12 #### [facility] [address] [place] [address] Dr. Edward Gill LYMPH # 2.4 103/ul Normal 1.2-3.8 [facility] Comment on above: Performed By: #### H IV12 #### [facility] [address] [place] [address] Dr. Edward Gill Lymphocytes/100 WBC (Bld) 27.2 % Normal 20.5-60.0 [facility] Comment on above: Performed By: #### H IV12 #### [facility] [address] [place] [address] Dr. Edward Gill MANUAL DIFF REQ NO Normal [facility] Comment on above: Performed By: #### H IV12 #### [facility] [address] [place] [address] Dr. Edward Gill MCH (RBC) [Entitic mass] 30.0 pg Normal 26.7-34.0 [facility] Comment on above: Performed By: #### H IV12 #### [facility] [address] [place] [address] Dr. Edward Gill MCHC (RBC) [Mass/Vol] 36.4 g/dL Critically high 29.9-35.2 [facility] Comment on above: Performed By: #### H IV12 #### [facility] [address] [address] [address] Edward Gill MCV (RBC) [Entitic vol] 82.3 fL Normal 81.0-99.0 [facility] Comment on above: Performed By: #### H IV12 #### [facility] [address] [address] [address] Edward Gill MONO # 0.7 103/ul Normal 0.3-0.8 [facility] Comment on above: Performed By: #### H IV12 #### [facility] [address] [address] [address] Edward Gill Monocytes/100 WBC (Bld) 7.7 % Normal 1.7-12.0 [facility] Comment on above: Performed By: #### H IV12 #### [facility] [address] [place] [address] Dr. Edward Gill NEUT # 5.5 103/ul Normal 1.4-6.5 [facility] Comment on above: Performed By: #### H IV12 #### [facility] [address] [place] [address] Dr. Edward Gill Neutrophils/100 WBC (Bld) 63.9 % Normal 43.0-75.0 [facility] Comment on above: Performed By: #### H IV12 #### [facility] [address] [place] [address] Dr. Edward Gill Platelet mean volume (Bld) [Entitic vol] 10.0 fL Normal 9.5-13.5 [facility] Comment on above: Performed By: #### H IV12 #### [facility] [address] [place] [address] Dr. Edward Gill PLT 274 103/ul Normal 150-450 [facility] Comment on above: Performed By: #### H IV12 #### [facility] [address] [address] [address] Edward Gill RBC 3.90 106/ul Critically low 4.20-5.40 [facility] Comment on above: Performed By: #### H IV12 #### [facility] [address] [address] [address] Edward Gill WBC 8.7 103/ul Normal 4.0-11.0 [facility] Comment on above: Performed By: #### H IV12 #### [facility] [address] [address] [address] Edward Gill Covid-19 PCR ([facility])on SARS-CoV-2 (COVID-19) RNA LELO+probe Ql (Unsp spec) Not detected Normal NOT DETECTED [facility] Comment on above: Result Comment: When diagnostic [...] for this test is supported by the Nuclear Equipment Design Engineer of Health and Human Service's declaration that [...] used). Performed By: #### H IV12 #### [facility] [address] [address] [address] Edward Gill DRUG SCREEN RAPID (URINE)on 05-07-2022 AMP Negative Normal NEGATIVE [facility] Comment on above: Performed By: #### D RUGRPD ####[facility] [address] [id number] Gill BAR Negative Normal NEGATIVE [facility] Comment on above: Performed By: #### D RUGRPD ####[facility] [address] [phone] Gill BUP Negative Normal NEGATIVE [facility] Comment on above: Performed By: #### D RUGRPD ####[facility] [address] [place], [place] [address]Dr. Edward Gill BZO Negative Normal NEGATIVE [facility] Comment on above: Performed By: #### D RUGRPD ####[facility] [address] [place], [place] [address]Dr. Edward Gill INDIA Negative Normal NEGATIVE [facility] Comment on above: Performed By: #### D RUGRPD ####[facility] [address] [place], [place] [address]Dr. Edward Gill CUT-OFFS SEE BELOW Normal [facility] Comment on above: Result Comment: AMP (Amphetamine): 500ng/mL, BAR (Barbituates): 200 ng/mL, BZO (Benzodiazepines): 150 ng/mL, BUP (Buprenorphine): 10 ng/mL, INDIA (Cocaine): 150 ng/mL, mAMP (Methamphetamine): 500 ng/mL, MTD (Methadone): 200 ng/mL, OPI (Opiates): 100 ng/mL, OXY (Oxycodone): 100 ng/mL, PCP (Phencyclidine): 25 ng/mL, PPX (Propoxyphene): 300 ng/mL, THC (Cannabinoids): 50 ng/mL, TCA (Trycyclic Antidepressants): 300 ng/mL Performed By: #### D RUGRPD ####[facility] [address] [place], [place] [address]Dr. Edward Gill DRUG CUT HEADER DRUG CLASS TEST SYST EM CUT-OFF CONCENTRATIONS ARE FOLLOWS: Normal [facility] Comment on above: Performed By: #### D RUGRPD ####[facility] [address] [place], [place] [address]Dr. Edward Gill mAMP Negative Normal NEGATIVE [facility] Comment on above: Performed By: #### D RUGRPD ####[facility] [address] [place], [place] [address]Dr. Edward Gill MTD Negative Normal NEGATIVE [facility] Comment on above: Performed By: #### D RUGRPD ####[facility] [address] [place], [place] [address]Dr. Edward Gill OPI Negative Normal NEGATIVE [facility] Comment on above: Performed By: #### D RUGRPD ####[facility] [address] [id number]. Yihermelindo Gill OXY Negative Normal NEGATIVE [facility] Comment on above: Performed By: #### D RUGRPD ####[facility] [address] [place], [place] [address]Vf. Yilan Gill PCP Negative Normal NEGATIVE [facility] Comment on above: Performed By: #### D RUGRPD ####[facility] [address] [id number]. Yihermelindo Gill PPX Negative Normal NEGATIVE [facility] Comment on above: Performed By: #### D RUGRPD ####[facility] [address] [address]Dr. Yihermelindo Gill TCA Negative Normal NEGATIVE [facility] Comment on above: Performed By: #### D RUGRPD ####[facility] [address] [address]Dr. Yihermelindo Gill THC Negative Normal NEGATIVE [facility] Comment on above: Performed By: #### D RUGRPD ####[facility] [address] [address]Dr. Edward Gill US PREG BIOPHY W NON [...] HUMERA KIM Date: 2022-05-06 19:05 Normal [facility] US PREG BIOPHY W NON STRESSo n [...] by: ANGIE GALDAMEZ Date: 2022-05-01 16:16 Normal [facility] GROUP B STREP CULTUREon 03-31 S. [...] R F Vancomycin =0.5 S F Normal [facility] Comment on above: Performed By: #### G BSCX ####[facility] [address] [place], [place] [address]En. Edward Gill US PREG BIOPHY W NON [...] by: HUMERA KIM Date: 2022-04-17 17:08 Normal [facility] US PREG GROWTHon 04-17-2022 US PREG GROWTH [...] by: HUMERA KIM Date: 2022-04-17 16:49 Normal [facility] US PREG BIOPHY W NON STRESSo n [...] by: HUMERA KIM Date: 2022-04-12 08:56 Normal [facility] GLUCOSE, BLOOD (POC)on 04-05 Glucose [Mass/Vol] 106 mg/dL Abnormal 74 - 99 mg/dL [facility] US PREG BIOPHY W NON STRESSo [...] by: HUMERA KIM Date: 2022-04-01 16:08 Normal [facility] US PREG BIOPHY W NON STRESSo n [...] by: HUMERA KIM Date: 2022-03-27 08:54 Normal [facility] US PREG GROWTHon 03-17-2022 US PREG [...] by: HUMERA KIM Date: 2022-03-17 06:04 Normal [facility] TSHon 02-25-2022 TSH 2.586 uIU/mL Normal 0.358-3.740 [facility] Comment on above: Performed By: #### H IV12 #### [facility] [address] [address] [address] Edward Gill TYPE AND SCREENon 02-25-2022 TYPE AND SCREEN Negative Normal [facility] Comment on above: Performed By: #### T NS #### [facility] [address] [address] [address] Edward Gill PAP ACOG PANEL 2: 30 to 65on 02-21-2022 . . Normal [facility] Comment on above: Result Comment: Perf ormed at: WB Performed By: #### 4 [id number] ####[facility] [address] [address]Dr. Edward Gill Age Gdln ACOG Testing 30-65 [facility] Comment on above: Performed By: #### 4 [id number] ####[facility] [address] [address]Dr. Edward Gill DIAGNOSIS: Comment Normal [facility] Comment on above: Result Comment: NEGA TIVE FOR INTRAEPITHELIAL LESION OR MALIGNANCY. Performed at: WB Performed By: #### 4 [id number] ####[facility] [address] [address]DrLazara Gill HPV Aptima Negative Normal Negative [facility] Comment on above: Result Comment: This nucleic acid amplification test detects fourteen high-risk HPV types (16,18,31,33,35,39,45,51,52,56,58,59,66,68) without differentiation. Performed at: =G Performed By: #### 4 [id number] ####[facility] [address] [address]DrLazara Gill Methodology: Comment Normal [facility] Comment on above: Result Comment: This liquid based ThinPrep(R) pap test was screened with the use of an image guided system. Performed at: WB Performed By: #### 4 [id number] ####[facility] [address] [address]DrLazara Gill Note: Comment Normal [facility] Comment on above: Result Comment: The Pap smear is a screening test designed to aid in the detection of premalignant and malignant conditions of the uterine cervix. It is not a diagnostic procedure and should not be used as the sole means of detecting cervical cancer. Both false-positive and false-negative reports do occur. . Performed at: WB Performed By: #### 4 [id number] ####[facility] [address] [address]Dr. Edward Gill Performed by: Comment Normal [facility] Comment on above: Result Comment: Zenaida Diop, Certified Physical Therapist Assistant (ASCP) Performed at: WB Performed By: #### 4 [id number] ####[facility] [address] [place], [place] [address]Dr. Edward Gill Specimen adequacy: Comment Normal [facility] Comment on above: Result Comment: Sati sfactory for evaluation. No endocervical component is identified. Performed at: WB Performed By: #### 4 [id number] ####[facility] [address] [place], [place] [address]Dr. Edward Gill CHLAMYDIA/GONOCOCCUS LELO (SW AB/URINE/PAPon 02-16-2022 Chlamydia trachomatis, LELO Negative Normal Negative [facility] Comment on above: Performed By: #### C T/NGNA ####[facility] [address] [place], [place] [address]Dr. Alishahermelindo Gill Neisseria gonorrhoeae, LELO Negative Normal Negative [facility] Comment on above: Performed By: #### C T/NGNA ####[facility] [address] [place], [place] [address]Dr. Edward Gill VAGINITIS/VAGINOSIS DNA PROB [place] 02-16-2022 Tabitha species Negative Normal Negative [facility] Comment on above: Performed By: #### V AGINT ####[facility] [address] [place], [place] [address]Dr. Alishahermelindo [facility] Gardnerella vaginalis Negative Normal Negative [facility] Comment on above: Performed By: #### V AGINT ####[facility] [address] [place], [place] [address]Dr. Alishahermelindo [facility] Trichomonas vaginalis Negative Normal Negative [facility] Comment on above: Performed By: #### V AGINT ####[facility] [address] [place], [place] [address]Sc. Edward Gill TSHon 01-24-2022 TSH 1.536 uIU/mL Normal 0.358-3.740 [facility] Comment on above: Performed By: #### T SH ####[facility] [address] [address]Dr. Edward Gill GLUCOSE - 1HRon 01-07-2022 Glucose [Mass/Vol] 160 mg/dL Critically high 74-106 T [facility] Comment on above: Performed By: #### G LU1HR ####[facility] [address] [address]Dr. Edward Gill TSHon 12-28-2021 TSH 1.899 uIU/mL Normal 0.358-3.740 [facility] Comment on above: Performed By: #### H IV12 #### [facility] [address] [address] [address] Edward Gill AFP, Maternalon 11-24-2021 Determined by Ultrasound Normal [facility] Comment on above: Performed By: #### A AFPM #### [facility] [employer] [facility] [place], [place] [id number] Costume Technician: Pancho Cano MD [address] [address] Costume Technician: Zhang Bledsoe MD Due Date SEE NOTE Normal [facility] Comment on above: Result Comment: Resu lts for Estimated Due Date: 05 13 22 Performed By: #### A AFPM #### [facility] [address] [place] [address] Costume Technician: Pancho Cano MD [address] [address] Costume Technician: Zhang Bledsoe MD Family History No Normal [facility] Comment on above: Performed By: #### A AFPM #### [address] [address] Costume Technician: Pancho Cano MD [address] [phone] Costume Technician: Zhang Bledsoe MD Gestat Age (exact) 15 wks, 2 days Normal [facility] Comment on above: Performed By: #### A AFPM #### [address] [address] Costume Technician: Pancho Cano MD [address] [phone] Costume Technician: Zhang Bledsoe MD Ins Req Matern Diab No [facility] Comment on above: Performed By: #### A AFPM #### [address] [address] Costume Technician: Pancho Cano MD [address] [phone] Costume Technician: Zhang Bledsoe MD Interpretation Screen Neg [facility] Comment on above: Result Comment: (NOT E) INTERPRETATION: SCREEN NEGATIVE for open spina bifida Neural Tube Defects (NTD) Negative Pre-Test Post-Test Cutoff Neural Tube Defects Risks 1:1030 1:2690 1:250 Comments: The risk of an open neural tube defect is less than the screening cut-off. This test was developed and its performance characteristics determined by [employer]. It has not been cleared or approved by the [place] Food and Drug Administration. This test was performed in a CLIA certified laboratory and is intended for clinical purposes. Performed By: #### A AFPM #### [address] [address] Costume Technician: Pancho Cano MD [address] [phone] Costume Technician: Zhang Bledsoe MD [age] [facility] Comment on above: Performed By: #### A AFPM #### [address] [address] Costume Technician: Pancho Cano MD [facility] [address] [place] [address] Costume Technician: Zhang Bledsoe MD Maternal Race Nonblack [facility] Comment on above: Performed By: #### A AFPM #### [address] [address] Costume Technician: Pancho Cano MD [address] [address] Costume Technician: Zhang Bledsoe MD Maternal Weight 228.0 lbs. [facility] Comment on above: Performed By: #### A AFPM #### [address] [address] Costume Technician: Pancho Cano MD [address] [address] Costume Technician: Zhang Bledsoe MD MoM for AFP 1.52 [facility] Comment on above: Performed By: #### A AFPM #### [address] [address] Costume Technician: Pancho Cano MD [address] [address] Costume Technician: Zhang Bledsoe MD Number of Fetuses [facility] Comment on above: Performed By: #### A AFPM #### [address] [address] Costume Technician: Pancho Cano MD [facility] [address] [place] [address] Costume Technician: Zhang Bledsoe MD Patient's AFP 35 ng/mL [facility] Comment on above: Performed By: #### A AFPM #### [address] [place] [address] Costume Technician: Pancho Cano MD [address] [phone] Costume Technician: Zhang lBedsoe MD Smoking No [facility] Comment on above: Performed By: #### A AFPM #### [address] [address] Costume Technician: Pancho Cano MD [address] [phone] Costume Technician: Zhang Bledsoe MD Specimen See Note [facility] Comment on above: Result Comment: (NOT E) Initial sample Performed by [facility], [address] [place] [id number] [email or web address], Yayo Moncada MD, PHD, Lab. Director Performed By: #### A AFPM #### [address] [address] Costume Technician: Pancho Cano MD [address] [address] Costume Technician: Zhang Bledsoe MD AFP, Maternalon 11-22-2021 Current Smoking [facility] Comment on above: Performed By: #### A AFPM #### [address] [address] Costume Technician: Pancho Cano MD [address] [address] Costume Technician: Zhang Bledsoe MD Dating US [facility] Comment on above: Performed By: #### A AFPM #### [address] [address] Costume Technician: Pancho Cano MD [address] [phone] Costume Technician: Zhang Bledsoe MD Diabetic NO [facility] Comment on above: Performed By: #### A AFPM #### [address] [address] Costume Technician: Pancho Cano MD [facility] [address] [place] [address] Costume Technician: Zhang Bledsoe MD Donor Egg INFORMATION NOT PROVIDED [facility] Comment on above: Performed By: #### A AFPM #### [address] [address] Costume Technician: Pancho Cano MD [address] [address] Costume Technician: Zhang Bledsoe MD Estimated Due Date [id number] [facility] Comment on above: Performed By: #### A AFPM #### [address] [address] Costume Technician: Pancho Cano MD [address] [address] Costume Technician: Zhang Bledsoe MD Family History Negative [facility] Comment on above: Performed By: #### A AFPM #### [address] [address] Costume Technician: Pancho Cano MD [address] [address] Costume Technician: Zhang Bledsoe MD In Vitro Fertalizat INFORMATION NOT PROVIDED [facility] Comment on above: Performed By: #### A AFPM #### [address] [address] Costume Technician: Pancho Cano MD [facility] [address] [place] [address] Costume Technician: Zhang Bledsoe MD LMP date [id number] [facility] Comment on above: Performed By: #### A AFPM #### [address] [address] Costume Technician: Pancho Cano MD [facility] [address] [place] [address] Costume Technician: Zhang Bledsoe MD Maternal date [id number] [facility] Comment on above: Performed By: #### A AFPM #### [address] [address] Costume Technician: Pancho Cano MD [facility] [address] [place] [address] Costume Technician: Zhang Bledsoe MD Maternal Weight 228 [facility] Comment on above: Performed By: #### A AFPM #### [address] [address] Costume Technician: Pancho Cano MD [facility] [address] [place] [address] Costume Technician: Zhang Bledsoe MD Monochorionic Twins NO [facility] Comment on above: Performed By: #### A AFPM #### [address] [address] Costume Technician: Pancho Cano MD [address] [address] Costume Technician: Zhang Bledsoe MD Patient Weight Units LBS [facility] Comment on above: Performed By: #### A AFPM #### [address] [address] Costume Technician: Pancho Cano MD [facility] [address] [place] [address] Costume Technician: Zhang Bledsoe MD Race (Maternal) WHITE [facility] Comment on above: Performed By: #### A AFPM #### [address] [address] Costume Technician: Pancho Cano MD [address] [phone] Costume Technician: Zhang Bledsoe MD Repeat Specimen INFORMATION NOT PROVIDED Normal [facility] Comment on above: Performed By: #### A AFPM #### [address] [address] Costume Technician: Pancho Cano MD [facility] [address] [place] [address] Costume Technician: Zhang Bledsoe MD Valproic/Carbamazep INFORMATION NOT PROVIDED Normal [facility] Comment on above: Performed By: #### A AFPM #### [address] [address] Costume Technician: Pancho Cano MD [address] [address] Costume Technician: Zhang Bledsoe MD MISCELLANEOUS TESTINGon 07- Send Out Report FWD TO [facility] TRK [phone] [facility] Test Name [facility] Miscellaneouson 11-21-2021 Send Out Report FWD TO [facility] TRK [phone] [facility] Comment on above: Performed By: #### C MIS #### [address] [address] Costume Technician: Pancho Cano MD Test Name [facility] Comment on above: Performed By: #### C MIS #### [address] [address] Costume Technician: Pancho Cano MD HEP B SURFACE ANTIGEN SCREEN on 10-26-2021 HBsAg Screen Negative Normal Negative [facility] Comment on above: Performed By: #### H IV12 #### [facility] [address] [place] [address] Dr. Edward Gill HEPATITIS C VIRUS AB W/ REFL EX QUANTon 10-26-2021 HCV AB <0.1 Normal 0.0-0.9 [facility] Comment on above: Performed By: #### H CVPCRR ####[facility] [address] [id number] Gill Interpretation: Comment Normal [facility] Comment on above: Result Comment: Nega tive Not infected with HCV, unless recent infection is suspected or other evidence exists to indicate HCV infection. Performed By: #### H CVPCRR ####[facility] [address] [address]DrLazara Gill HIV 1 AND 2 WITH REFLEXon HIV Screen 4th Generation wRfx Non-Reactive Normal Non Reactive [facility] Comment on above: Result Comment: HIV Negative HIV-1/HIV-2 antibodies and HIV-1 p24 antigen were NOT detected. There is no laboratory evidence of HIV infection. Performed By: #### H IV12 #### [facility] [address] [address] [address] Edward Gill RPR QUANTon 10-26-2021 Rapid Plasma Reagin, Quant Non-Reactive Normal NonRea<1:1 [facility] Comment on above: Result Comment: Plea se Note: This test does not meet current guidelines for screening and diagnosis of syphilis. This test is intended for following treatment response in patients being treated for syphilis infection. To screen for syphilis infection, a reflex cascade that includes both RPR and a treponema-specific assay should be utilized, such as Treponema pallidum (Syphilis) Screening [place] (464022) or Rapid Plasma Reagin (RPR) Test With Reflex to Quantitative RPR and Confirmatory Treponema pallidum Antibodies (487316). Performed By: #### R PRQ ####[facility] [address] [address]DrLazara Gill RUBELLA AB IGGon 10-26-2021 Rubella Antibodies, IgG 1.02 index Normal Immune >0.99 [facility] Comment on above: Result Comment: Non- immune <0.90 Equivocal 0.90 - 0.99 Immune >0.99 Performed By: #### R UBIGG ####[facility] [address] [address]Dr. Edward Gill CBC AUTO DIFFon 10-25-2021 BASO # 0.0 103/ul Normal 0.0-0.1 [facility] Comment on above: Performed By: #### H IV12 #### [facility] [address] [address] [address] Edward Gill Basophils/100 WBC (Bld) 0.3 % Normal 0.2-2.0 [facility] Comment on above: Performed By: #### H IV12 #### [facility] [address] [place] [address] Dr. Edward Gill EO # 0.1 103/ul Normal 0.0-0.7 [facility] Comment on above: Performed By: #### H IV12 #### [facility] [address] [place] [address] Dr. Edward Gill Eosinophils/100 WBC (Bld) 0.6 % Critically low 0.9-7.0 [facility] Comment on above: Performed By: #### H IV12 #### [facility] [address] [place] [address] Dr. Edward Gill Erythrocyte distribution width (RBC) [Ratio] 14.1 % Normal 11.0-15.0 [facility] Comment on above: Performed By: #### H IV12 #### [facility] [address] [place] [address] Dr. Edward Gill Hematocrit (Bld) [Volume fraction] 36.2 % Normal 36.0-48.0 [facility] Comment on above: Performed By: #### H IV12 #### [facility] [address] [place] [address] Dr. Edward Gill Hemoglobin (Bld) [Mass/Vol] 12.5 g/dL Normal 12.0-16.0 [facility] Comment on above: Performed By: #### H IV12 #### [facility] [address] [place] [address] Dr. Edward Gill IG # 0.05 10e3/ul Critically high 0.00-0.03 [facility] Comment on above: Performed By: #### H IV12 #### [facility] [address] [place] [address] Dr. Edward Gill IG % 0.4 % Normal 0.0-0.5 [facility] Comment on above: Performed By: #### H IV12 #### [facility] [address] [address] [address] Edward Gill LYMPH # 2.7 103/ul Normal 1.2-3.8 [facility] Comment on above: Performed By: #### H IV12 #### [facility] [address] [place] [address] Dr. Edward Gill Lymphocytes/100 WBC (Bld) 23.2 % Normal 20.5-60.0 [facility] Comment on above: Performed By: #### H IV12 #### [facility] [address] [place] [address] Dr. Edward Gill MANUAL DIFF REQ NO Normal [facility] Comment on above: Performed By: #### H IV12 #### [facility] [address] [place] [address] Dr. Edward Gill MCH (RBC) [Entitic mass] 30.6 pg Normal 26.7-34.0 [facility] Comment on above: Performed By: #### H IV12 #### [facility] [address] [place] [address] Dr. Edward Gill MCHC (RBC) [Mass/Vol] 34.5 g/dL Normal 29.9-35.2 [facility] Comment on above: Performed By: #### H IV12 #### [facility] [address] [place] [address] Dr. Edward Gill MCV (RBC) [Entitic vol] 88.7 fL Normal 81.0-99.0 [facility] Comment on above: Performed By: #### H IV12 #### [facility] [address] [place] [address] Dr. Edward Gill MONO # 0.7 103/ul Normal 0.3-0.8 [facility] Comment on above: Performed By: #### H IV12 #### [facility] [address] [place] [address] Dr. Edward Gill Monocytes/100 WBC (Bld) 5.8 % Normal 1.7-12.0 [facility] Comment on above: Performed By: #### H IV12 #### [facility] [address] [place] [address] Dr. dEward Gill NEUT # 8.0 103/ul Critically high 1.4-6.5 [facility] Comment on above: Performed By: #### H IV12 #### [facility] [address] [place] [address] Dr. Edward Gill Neutrophils/100 WBC (Bld) 69.7 % Normal 43.0-75.0 [facility] Comment on above: Performed By: #### H IV12 #### [facility] [address] [place] [address] Dr. Edward Gill Platelet mean volume (Bld) [Entitic vol] 9.3 fL Critically low 9.5-13.5 [facility] Comment on above: Performed By: #### H IV12 #### [facility] [address] [place] [address] Dr. Edward Gill PLT 338 103/ul Normal 150-450 [facility] Comment on above: Performed By: #### H IV12 #### [facility] [address] [place] [address] Dr. Edward Gill RBC 4.08 106/ul Critically low 4.20-5.40 [facility] Comment on above: Performed By: #### H IV12 #### [facility] [address] [place] [address] Dr. Edward Gill WBC 11.4 103/ul Critically high 4.0-11.0 [facility] Comment on above: Performed By: #### H IV12 #### [facility] [address] [place] [address] Dr. Edward Gill CULTURE URINEon 10-25-2021 CULTURE URINE Culture Observations : LIGHT GROWTH OF MIXED GENITAL MARTHA. NO POTENTIAL PATHOGENS SEEN. Normal [facility] Comment on above: Performed By: #### U RCX #### [facility] [address] [address] [address] Edward Gill GLYCOHEMOGLOBIN A1Con 2021 ADA RECOMMENDATION SEE BELOW Normal [facility] Comment on above: Result Comment: ADA RECOMMENDED LIMIT 4.0 - 6.0 ADA THERAPEUTIC TARGET < 7.0 ACTION SUGGESTED > 7.0 Performed By: #### A 1C #### [facility] [address] [address] [address] Edward Gill Glucose [Mass/Vol] 117 mg/dL Normal [facility] Comment on above: Performed By: #### A 1C #### [facility] [address] [place] [address] Dr. Edward Gill HbA1c (Bld) [Mass fraction] 5.7 % Normal 4.5-6.2 [facility] Comment on above: Performed By: #### A 1C #### [facility] [address] [address] [address] Edward Gill DILLON BOX TEST PT SEND OUTo n 10-25-2021 SENT TO REF LAB 10/25/2021 Normal [facility] Comment on above: Performed By: #### H IV12 #### [facility] [address] [place] [address] Dr. Edward Gill TSHon 10-25-2021 TSH 1.700 uIU/mL Normal 0.358-3.740 [facility] Comment on above: Performed By: #### T SH ####[facility] [address] [id number]. Edward Gill TYPE AND SCREENon 10-25-2021 TYPE AND SCREEN Negative Normal [facility] Comment on above: Performed By: #### T NS ####[facility] [address] [id number]. Edward Gill US PREG TVon 09-23-2021 US [...] by: HUMERA KIM Date: 2021-09-23 10:27 Normal [facility] PREG QUANT HCGon 09-01-2021 HCG QUANT 1242 mIU/mL Normal [facility] Comment on above: Performed By: #### H IV12 #### [facility] [address] [address] [address] Edward Gill HCG RANGE SEE BELOW Normal [facility] Comment on above: Result Comment: 5-50 0-1 WEEK 40-300 1-2 WEEKS 100-1,000 2-3 WEEKS 500-6,000 3-4 WEEKS 5,000-200,000 1-2 MONTHS 10,000-100,000 2-3 MONTHS 3,000-50,000 2ND TRIMESTER 1,000-50,000 3RD TRIMESTER Performed By: #### H IV12 #### [facility] [address] [address] [address] Edward Gill CHEMISTRYOrdered By: SYSTEM SYSTEM on 08-31-2021 Anion gap [Moles/Vol] 15 mmol/L Normal 6 - 16 mEq/L [facility] Rem[facility] Calcium [Mass/Vol] 9.5 mg/dL Normal 8.9 - 11. 1 mg/dL [facility] Remisol Chloride [Moles/Vol] 102 mmol/L Normal 101 - 1 11 mmol/L [facility] Remisol CO2 [Moles/Vol] 22 mmol/L Normal 21 - 31 mmol/L [facility] Remisol Creatinine [Mass/Vol] 0.9 mg/dL Normal 0.5 - 1.3 mg/dL [facility] Remisol GFR/1.73 sq M.predicted among blacks MDRD (S/P/Bld) [Vol rate/Area] mL/min/1.73 m2 Normal >=59mL/min/ 1.73 m2 [facility] Chem S GFR/1.73 sq M.predicted among non-blacks MDRD (S/P/Bld) [Vol rate/Area] mL/min/1.73 m2 Normal >=59mL/min/ 1.73 m2 [facility] Chem S Glucose [Mass/Vol] 85 mg/dL Normal 55 - 199 mg/dL [facility] Remisol Potassium [Moles/Vol] 3.9 mmol/L Normal 3.5 - 5.3 mmol/L [facility] Remisol Sodium [Moles/Vol] 135 mmol/L Normal 135 - 145 mmol/L [facility] Remisol Urea nitrogen [Mass/Vol] 6 mg/dL Normal 5 - 21 mg/dL [facility] Remisol Urea nitrogen/Creatinine [Mass ratio] 7 mg/mg Low 10 - 20 [facility] Remisol HEMATOLOGYOrdered By: SYSTEM SYSTEM on 08-31-2021 Basophils/100 WBC (Bld) 0.5 % Normal 0.0 - 2.0 % [facility] [...] 08-29-2021 HCG QUANT 374 mIU/mL Normal [facility] Comment on above: Performed By: #### P REGQNT ####[facility] [address] [place], [place] [address]IhLazara Gill HCG RANGE SEE BELOW Normal [facility] Comment on above: Result Comment: 5-50 0-1 WEEK 40-300 1-2 WEEKS 100-1,000 2-3 WEEKS 500-6,000 3-4 WEEKS 5,000-200,000 1-2 MONTHS 10,000-100,000 2-3 MONTHS 3,000-50,000 2ND TRIMESTER 1,000-50,000 3RD TRIMESTER Performed By: #### P REGQNT ####[facility] [address] [id number]. Edward Gill PREG QUANT HCGon 08-26-2021 HCG QUANT 99 mIU/mL Normal [facility] Comment on above: Performed By: #### H IV12 #### [facility] [id number] Edward Gill HCG RANGE SEE BELOW Normal [facility] Comment on above: Result Comment: 5-50 0-1 WEEK 40-300 1-2 WEEKS 100-1,000 2-3 WEEKS 500-6,000 3-4 WEEKS 5,000-200,000 1-2 MONTHS 10,000-100,000 2-3 MONTHS 3,000-50,000 2ND TRIMESTER 1,000-50,000 3RD TRIMESTER Performed By: #### H IV12 #### [facility] [address] [address] [address] Edward Gill PREG QUANT HCGon 08-24-2021 HCG QUANT 37 mIU/mL Normal [facility] Comment on above: Performed By: #### P REGQNT ####[facility] [address] [id number]. Edward Gill HCG RANGE SEE BELOW Normal [facility] Comment on above: Result Comment: 5-50 0-1 WEEK 40-300 1-2 WEEKS 100-1,000 2-3 WEEKS 500-6,000 3-4 WEEKS 5,000-200,000 1-2 MONTHS 10,000-100,000 2-3 MONTHS 3,000-50,000 2ND TRIMESTER 1,000-50,000 3RD TRIMESTER Performed By: #### P REGQNT ####[facility] [address] [id number]. Edward Gill CHEMISTRYOrdered By: SYSTEM SYSTEM on 08-19-2021 [...] rate/Area] mL/min/1.73 m2 Normal >=59mL/min/ 1.73 m2 [facility] Chem S GFR/1.73 sq M.predicted among non-blacks MDRD (S/P/Bld) [Vol rate/Area] mL/min/1.73 m2 Normal >=59mL/min/ 1.73 m2 [facility] Chem S Globulin (S) [Mass/Vol] 3.7 g/dL [...] 14.1 % Normal 10.9 - 14.2 % [facility] HemeAutoSS Hematocrit (Bld) [Volume fraction] 38.5 % Normal 34.0 - 46.0 % [facility]eAutoSS Hemoglobin (Bld) [Mass/Vol] 13.1 g/dL Normal 12.0 - 16.0 gm/dL [facility] HemeAutoSS MCH (RBC) [Entitic mass] 29.4 pg [...] Normal 4.0 - 11.0 E9/L [facility] HemeAutoSS [employer] - Office Visiton 10-28 [employer] - Office Visit Chief ComplaintComplains of: heavy bleeding 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, Susie Salomon CMA History of Present IllnessMadhu [...] stroke 07/2017 PSH as above POB- 2007 [id number] 17week loss subchorionic [id number] 39weeks bleeding at 5weeks for 2 weeks diet [id number] calories exercise none 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 [...] History History of Oral Surgery Tooth Extraction Cordova Tooth Family History No pertinent family history Family history of cerebrovascular accident (CVA) (V17.1) (Z82.3) Family history of diabetes mellitus (V18.0) (Z83.3) Family history of cerebrovascular accident (CVA) (V17.1) (Z82.3) Family history of cerebrovascular accident (CVA) (V17.1) (Z82.3) Allergies No Known Drug Allergies Recorded By: Susie Salomon; 11/08/2017 4:19:42 PM Current Meds Ciprofloxacin HCl - 500 MG Oral Tablet;Therapy: [id number] to Recorded Dispense: 0 Days ; #: Sufficient Tablet; Refill: 0; BUBBA = N; Record; Last Updated By: Susie Salomon; 11/08/2017 4:19:42 PM Plavix 75 MG Oral Tablet;Therapy: [id number] to Recorded Dispense: 0 Days ; #: Sufficient Tablet; Refill: 0; BUBBA = N; Record; Last Updated By: Susie Salomon; 11/08/2017 4:19:42 PM Provera 10 MG Oral Tablet;Therapy: [id number] to Recorded Dispense: 0 Days ; #: Sufficient Tablet; Refill: 0; BUBBA = N; Record; Last Updated By: Susie Salomon; 11/08/2017 4:19:42 PM Vitals Vital Signs Recorded: [id number] 04:86NMTlpgfeio087Fqvxcgnb j66Pcldwv7 ft 6 atBhvcap093 lb BMI Ygukzohlnu13.57BSA Calculated1.8YDJ04Aou2879H ain Scale6-7 Physical ExamConstitutional: Alert and in no acute distress. Well developed, well nourished. Head and Face: Head and face: Normal. Psychiatric: Alert and oriented x 3. Affect normal to patient baseline. Mood: Appropriate. Diagnoses/Problems Anemia (285.9) (D64.9) Asthma (493.90) (J45.909) Depression with anxiety (300.4) (F41.8) History of Oral Surgery Tooth Extraction Cordova Tooth No pertinent family history : Mother [...] GIDeclines STI testing todayWeight gain, offered a twill cutter consult and she declined. Encouraged exercise. Signatures Electronically signed by : RICHARD Ulrich; Nov 12 2017 8:46PM EST (Author) [facility] Antiphospholipid Abs IgG/IgM on 06-08-2017 Antiphospholipid Ab-IgG >200 Critically high 0-14 [facility] Comment on above: Result Comment: INTE RPRETIVE INFORMATION: High-Specificity Antiphospholipid Antibody,IgG14 GPL or less......Gpxmpuiq40 26 GPL.........Indeterminate Suggest repeat testing in 12 weeks27 GPL or greater...PositiveHigh-specificity antiphospholipid IgG and IgM antibodies are directedagainsta mixture of phosphatidylserine, phosphatidic acid, and beta-2glycoprotein 1antigens. These antibodies are more specific than cardiolipin IgG andIgMantibodies in the diagnosis of antiphospholipid syndrome (APS). Antiphospholipid Ab-IgM 0 MPL Normal 0-14 [facility] Comment on above: Result Comment: INTE RPRETIVE INFORMATION: High-Specificity Antiphospholipid Antibody,IgM14 MPL or less......Zinrzvdx43 37 MPL.........Indeterminate Suggest repeat testing in 12 weeks38 MPL or greater...PositiveHigh-specificity antiphospholipid IgG and IgM antibodies are directedagainsta mixture of phosphatidylserine, phosphatidic acid, and beta-2glycoprotein 1antigens. These antibodies are more specific than cardiolipin IgG andIgMantibodies in the diagnosis of antiphospholipid syndrome (APS).Performed by [facility],[address] [place] [address] ltx.[employer], Zhang Bledsoe MD - Lab. Director Histone Antibody, IgGon Histone Ab, IgG 0.5 Units Normal 0.0-0.9 [facility] Comment on above: Result Comment: INTE RPRETIVE INFORMATION: Histone Ab, IgG 0.9 Units or less ............ Negative 1.0 - 1.5 Units .............. Weak Positive 1.6 - 2.5 Units .............. Moderate Positive 2.6 Units or greater ......... Strong PositivePerformed by [facility],[address] [place] [address] fga.[employer], Zhang Bledsoe MD - Lab. Director Cardiolipin Antibodies, IgA, IgG, IgMon 06-06-2017 Cardiolipin Ab IgA 2 APL Normal 0-11 [facility] Comment on above: Result Comment: INTE RPRETIVE INFORMATION: Cardiolipin Antibodies, IgA0-11 APL: Foipltrh29-11 APL: Fsoxoarawtnaq13-52 APL: Low to Moderately Udjttyzc44 APL or above: High PositivePerformed by [facility],[address] [place] [address] ejf.[employer], Zhang Bledsoe MD - Lab. Director Cardiolipin Ab IgG 84 GPL Critically high 0-14 [facility] Comment on above: Result Comment: INTE RPRETIVE INFORMATION: Anti-Cardiolipin IgG Ab0-14 GPL: [id number] GPL: Dcifkkeqeepbi13-38 GPL: Low to Moderately Jlexjjzn29 GPL or above: High PositiveThe persistent presence [...] Cardiolipin Ab IgM 5 MPL Normal 0-12 [facility] Comment on above: Result Comment: INTE RPRETIVE INFORMATION: Anti-Cardiolipin IgM0-12 MPL: Gjvwxebd69-94 MPL: Vhygmfxzepvyu66-49 MPL: Low to Moderately Eqoqhuiy12 MPL or above: High PositiveThe persistent presence [...] Centromere Ab, IgG 0 AU/mL Normal 0-40 [facility] Comment on above: Result Comment: INTE [...] with other antibodies associated with SSc,including Scl-70, U3-MANAGEMENT CONSULTANT, PM/Scl, or Th/To.Performed by [facility],[address] [place] [id number] qfd.[employer], Zhang Bledsoe MD - Lab. Director Antiphospholipid Abs IgG/IgM on 05-29-2017 Antiphospholipid Ab-IgG 196 GPL Critically high 0-14 [facility] Comment on above: Result Comment: INTE RPRETIVE INFORMATION: High-Specificity Antiphospholipid Antibody,IgG14 GPL or less......Qwtiapiv41 26 GPL.........Indeterminate Suggest repeat testing in 12 weeks27 GPL or greater...PositiveHigh-specificity antiphospholipid IgG and IgM antibodies are directedagainsta mixture of phosphatidylserine, phosphatidic acid, and beta-2glycoprotein 1antigens. These antibodies are more specific than cardiolipin IgG andIgMantibodies in the diagnosis of antiphospholipid syndrome (APS). Antiphospholipid Ab-IgM 6 MPL Normal 0-14 [facility] Comment on above: Result Comment: INTE RPRETIVE INFORMATION: High-Specificity Antiphospholipid Antibody,IgM14 MPL or less......Pnotwkbw29 37 MPL.........Indeterminate Suggest repeat testing in 12 weeks38 MPL or greater...PositiveHigh-specificity antiphospholipid IgG and IgM antibodies are directedagainsta mixture of phosphatidylserine, phosphatidic acid, and beta-2glycoprotein 1antigens. These antibodies are more specific than cardiolipin IgG andIgMantibodies in the diagnosis of antiphospholipid syndrome (APS).Performed by [facility],[address] [place] [id number] smz.[employer], Zhang Bledsoe MD - Lab. Director [facility] Miscellaneous test 1on 05-28-2017 Miscellaneous Test 1 SEE NOTE Normal [facility] Comment on above: Result Comment: Test name [...] Additional information and recommendations for testingmay befound [email or web address].Performed by [facility],[address] [place] [address] rqr.[employer], Zhang Bledsoe MD - Lab. Director Cardiolipin Antibodies, IgA, IgG, IgMon 05-28-2017 Cardiolipin Ab IgA 0 APL Normal 0-11 [facility] Comment on above: Result Comment: INTE RPRETIVE INFORMATION: Cardiolipin Antibodies, IgA0-11 APL: Jaselqxv73-12 APL: Drseghoolckkn33-75 APL: Low to Moderately Aeblnzve92 APL or above: High PositivePerformed by [facility],[address] [place] [address] iqz.[employer], Zhang Bledsoe MD - Lab. Director Cardiolipin Ab IgG 111 GPL Critically high 0-14 [facility] Comment on above: Result Comment: INTE RPRETIVE INFORMATION: Anti-Cardiolipin IgG Ab0-14 GPL: Mkxitffd84-04 GPL: Rovjfswfffrvg16-37 GPL: Low to Moderately Haxkodxn15 GPL or above: High PositiveThe persistent presence [...] Cardiolipin Ab IgM 10 MPL Normal 0-12 [facility] Comment on above: Result Comment: INTE RPRETIVE INFORMATION: Anti-Cardiolipin IgM0-12 MPL: Ppcwgkhq62-64 MPL: Wplfjzjiivmqv47-46 MPL: Low to Moderately Dthlwdcz39 MPL or above: High PositiveThe persistent presence [...] tests. Jennifer-Simpson Virus by PCRon 05-28-2017 Jennifer Smipson Virus by PCR Not Detected Normal [facility] Comment on above: Result Comment: NOT DETECTED - A negative result does not rule out thepresence of PCR inhibitors in the patient specimen or assayspecific nucleic acid in concentrations below the level ofdetection by the assay.INTERPRETIVE INFORMATION: Jennifer Simpson Virus by PCRTest developed and characteristics determined by [facility]. SeeCompliance Statement A: [employer]/CSPerformed by [facility],[address] [place] [id number] xww.[employer], Zhang Bledsoe MD - Lab. Director Jennifer Simpson Virus Source CSF Normal [facility] Oligoclonal Band Profileon 0 05-28-2017 Albumin 3840 mg/dL Normal [id number] [facility] Albumin 5.2 ratio Normal 0.0-9.0 [facility] Albumin, CSF 20 mg/dL Normal 0-35 [facility] CSF IgG Synthesis Rate <0.0 Normal <=8.0 [facility] CSF Oligoclonal Bands Negative Normal Negative [facility] CSF Oligoclonal Bands Number 0 Bands Normal 0-1 [facility] Globulin 1060 mg/dL Normal 768-1632 [facility] Comment on above: Result Comment: REFE RENCE INTERVAL: Immunoglobulin GAccess complete set of age- and/or gender-specific reference intervalsforthis test in the [facility] Test Directory ([employer]). IgG Index 0.45 ratio Normal 0.28-0.66 [facility] Immunoglobulin G CSF 2.5 mg/dL Normal 0.0-6.0 [facility] INR Coag RelTime (Bld) 0.12 {INR} Normal 0.09-0.25 [facility] Interpretation See Note Normal [facility] Comment on above: Result Comment: Isoe lectric focusing/immunofixation reveals no oligoclonal bands ineitherthe CSF or the serum. This is considered to be a negative result foroligoclonal bands. Approximately 5 percent of patients with clinicallydefinitive multiple sclerosis will have a negative result.Performed by [facility],[address] [place] [address] zlx.[employer], Zhang Bledsoe MD - Lab. Director Myelin Basic Protein, CSFon 05-27-2017 Myelin Basic Protein 1.82 ng/mL Normal 0.00-5.50 [facility] Comment on above: Result Comment: INTE RPRETIVE INFORMATION: Myelin Basic ProteinTest developed and characteristics determined by [facility]. SeeCompliance Statement D: [employer].Verafin/CSPerformed by [facility],[address] [place] [address] byz.[employer], Zhang Bledsoe MD - Lab. Director [facility] Miscellaneous test 105-26-2017 [facility] Prompt [id number] Normal [facility] Comment on above: Result Comment: Fuentes ected result; [place] [id number] on 05/25/2017 at 13:14 by V/AUT [facility] Miscellaneous test 105-25-2017 [facility]pt [id number] [place] Comment on above: Result Comment: DS D NA CSF Cell Counton 05-25-2017 CSF no diff see below Normal [facility] Comment on above: Result Comment: Diff erential not performed -Total Nucleated cells CSF Appearance Clear Normal [facility] CSF Color Colorless Normal [facility] CSF Tube Number Tube 4 Normal [facility] Fluid Clot Evaluation see below Normal [facility] Comment on above: Result Comment: No C lots Seen Total Nucleated Cells 0 K/uL Normal 0-8 [facility] Total Red Blood Cells 0 K/uL Normal [facility] CSF Glucoseon 05-25-2017 CSF Glucose 54 mg/dL Normal 50-70 [facility] CSF Proteinon 05-25-2017 CSF Protein 41 mg/dL Normal 15-45 [facility] Creatine Kinaseon 05-25-2017 Creatine kinase (CK) 71 U/L Normal 0-170 [facility] Culture, CSFon 05-25-2017 Culture, CSF OR DERED BY: VERNA MONGE: CSF (Spinal Fluid) CSF COLLECTED: 05/25/17 13:25ANTIBIOTICS AT AMARILYS.: RECEIVED : 05/25/17 13:25Gram Stain Direct FINAL 05/25/17 15:30 No WBC's, No organisms seenCulture, CSF FINAL 05/28/17 09:04 No growth at 72 hours Normal [facility] FL LUMBAR PUNCTURE DIAGon FL LUMBAR [...] by:NIKITA Mezaigned by:Humera Covarrubias MD05/25/17inal result Normal [facility] Homocysteineon 05-25-2017 Homocysteine 9.1 umol/L Normal 0.0-15.0 [facility] Partial Thromboplastin Timeo n 05-25-2017 aPTT 31.7 s Normal 21.6-35.4 [facility] Comment on above: Result Comment: Hepa rin Therapeutic Range: 38.8 - 54.6 seconds. Prothrombin Timeon 8 INR Coag RelTime (PPP) 1.0 {INR} Normal [facility] Comment on above: Result Comment: Rayo [...] Coag time (PPP) 10.7 s Normal 8.1-13.7 [facility] HIV-1,-2 w/Reflex to HIV-1 W estern [place] 12-31-2016 HIV-1 and HIV-2 Abs Negative Normal Negative [facility] Comment on above: Result Comment: Base d on the non-reactive anti-HIV (BRENDEN) screen, the HIV Western blotis notindicated and therefore not performed.INTERPRETIVE INFORMATION: HIV-1,-2 w/Reflex to HIV-1 Western BlotThis assay should not be used for blood donor screening, associatedre-entryprotocols, or for screening Human Cells, Tissues and Cellular andTissue-Based Products (HCT/P).Performed by [facility],[address] [place] [id number] spg.[employer], Zhang Bledsoe MD - Lab. Director RPRon 12-31-2016 Reagin antibody presence Non-reactive Normal Non-reacti [facility] C-Reactive Proteinon 017 C reactive protein (CRP) 2.8 mg/L Normal 0.0-5.0 [facility] CBC With Platelet No Differe ntialon 12-29-2016 Erythrocyte distribution width Auto Ratio (RBC) 13.2 % Normal 11.5-14.5 [facility] Erythrocytes (RBC) 4.33 10*6/uL Normal 4.20-5.40 [facility] Hematocrit (HCT) 38.6 % Normal 37.0-47.0 [facility] Hemoglobin mass conc (Bld) 12.9 g/dL Normal 12.0-16.0 [facility] MCH 29.9 pg Normal 27.0-31.3 [facility] MCHC mass conc (RBC) 33.5 % Normal 33.0-37.0 [facility] MCV 89.2 fL Normal 82.0-100.0 [facility] Platelets 363 10*3/uL Normal 130-400 [facility] WBC (Leukocytes) 7.4 10*3/uL Normal 4.8-10.8 [facility] Comprehensive Metabolic Pane shayy 12-29-2016 Alanine aminotransferase (ALT) 64 U/L Critically high 0-33 [facility] Albumin 4.9 g/dL Normal 3.9-4.9 [facility] Alkaline phosphatase (ALP) 82 U/L Normal 40-130 [facility] Anion gap 16 mmol/L Critically high 7-13 [facility] Aspartate aminotransferase (AST) 30 U/L Normal 0-35 [facility] Bilirubin (total) 0.3 mg/dL Normal 0.0-1.2 [facility] Calcium 9.3 mg/dL Normal 8.6-10.2 [facility] Chloride 90 mmol/L Low 98-107 [facility] CO2 24 mmol/L Normal 22-29 [facility] Creatinine 0.53 mg/dL Normal 0.50-0.90 [facility] eGFR (black) mL/min/{1.73_m2} Normal >60 [facility] Comment on above: Result Comment: >60 mL/min/1.73m2 EGFR, calc. for ages 18 and older using theMDRD formula (not corrected for weight), is valid for stablerenal function. eGFR (MDRD) mL/min/{1.73_m2} Normal >60 [facility] Comment on above: Result Comment: >60 mL/min/1.73m2 EGFR, calc. for ages 18 and older using theMDRD formula (not corrected for weight), is valid for stablerenal function. Globulin 2.8 g/dL Normal 2.3-3.5 [facility] Glucose mass conc 72 mg/dL Low 74-109 [facility] Potassium molar conc 4.5 mmol/L Normal 3.5-5.1 [facility] Protein 7.7 g/dL Normal 6.4-8.1 [facility] Sodium 130 mmol/L Low 132-144 [facility] Urea nitrogen 6 mg/dL Normal 6-20 [facility] Sedimentation Rateon 017 Sedimentation Rate 11 mm Normal 0-20 [facility] TSH w/out Reflexon 7 Thyroid stimulating hormone (TSH) 3.030 uIU/mL Normal 0.270-4.20 [facility] Thyroxine Freeon 12-29-2016 Thyroxine Free 1.19 ng/dL Normal 0.93-1.70 [facility] VITAMIN Don 12-29-2016 VITAMIN D 51.1 ng/mL Normal 30.0-100.0 [facility] Comment on above: Result Comment: (30- 100 ng/mL) Optimum LevelThis assay accurately quantifies the sum of vitamin D3, 25-Hydroxy andvitamin D2, 25-Hyroxy. Vitamin B12 and Folateon Cobalamins (Vitamin B12) 1860 pg/mL Critically high 211-946 [facility] Folate 19.6 ng/mL Normal 7.3-26.1 [facility] Comment on above: Result Comment: As o f 15, the methodology has changed. Results fromthis methodology should not be compared with results fromprevious methodology. Vital Signs Date Time Vital Sign Value Performing Clinician Facility 05-06-2024 14:40-0500 Body mass index (BMI) [Ratio] 35.41 kg/m2 [employer] Work Phone: [facility] 05-06-2024 14:40-0500 Body weight 99.52 kg [employer] Work Phone: [facility] 05-06-2024 14:40-0500 Diastolic blood pressure 80 mm[Hg] [employer] Work Phone: [facility] 05-06-2024 14:40-0500 Systolic blood pressure 120 mm[Hg] Wilton Herrmann DO Work Phone: [facility] 04-04-2024 10:57-0500 Body mass index (BMI) [Ratio] 35.85 kg/m2 [facility] Nurse [facility] 04-04-2024 10:57-0500 Body weight 100.75 kg [facility] Nurse [facility] 02-05-2024 13:29-0400 Blood Pressure Location Evans KAPLE [facility] 02-05-2024 13:29-0400 Body temperature 98.06 [degF] Evans KAPLE [facility] 02-05-2024 13:29-0400 Diastolic blood pressure 70 mm[Hg] Evans KAPLE [facility] 02-05-2024 13:29-0400 Heart rate 76 /min Evans KAPLE [facility] 02-05-2024 13:29-0400 Respiratory rate 16 /min Evans KAPLE [facility] 02-05-2024 13:29-0400 SaO2% (BldA) [Mass fraction] 99 % Evans KAPLE [facility] 02-05-2024 13:29-0400 Systolic blood pressure 122 mm[Hg] Evans KAPLE [facility] 02-02-2024 14:39-0400 Blood Pressure Location Anni Gudimella [facility] 02-02-2024 14:39-0400 Body temperature 98.06 [degF] Anni Gudimella [facility] 02-02-2024 14:39-0400 Diastolic blood pressure 84 mm[Hg] Anni Gudimella [facility] 02-02-2024 14:39-0400 Heart rate 98 /min Anni Gudimella [facility] 02-02-2024 14:39-0400 SaO2% (BldA) [Mass fraction] 99 % Anni Gudimella [facility] 02-02-2024 14:39-0400 Systolic blood pressure 121 mm[Hg] Anni Gudimella [facility] 01-02-2024 13:45-0400 Body height 167.7 cm Salvador Calix MD Work Phone: [facility] 01-02-2024 13:45-0400 Body mass index (BMI) [Ratio] 36.52 kg/m2 Salvador Calix MD Work Phone: [facility] 01-02-2024 13:45-0400 Body temperature 97.11 [degF] Salvador Calix MD Work Phone: [facility] 01-02-2024 13:45-0400 Body weight 102.7 kg Salvador Calix MD Work Phone: [facility] 01-02-2024 13:45-0400 Diastolic blood pressure 81 mm[Hg] Salvador Calix MD Work Phone: [facility] 01-02-2024 13:45-0400 Heart rate 91 /min Salvador Calix MD Work Phone: [facility] 01-02-2024 13:45-0400 Respiratory rate 16 /min Salvador Calix MD Work Phone: [facility] 01-02-2024 13:45-0400 SaO2% (BldA) [Mass fraction] 100 % Salvador Calix MD Work Phone: [facility] 01-02-2024 13:45-0400 Systolic blood pressure 128 mm[Hg] Salvador Calix MD Work Phone: [facility] 11-29-2023 13:40-0400 Body temperature 97.7 [degF] Chair Anson Work Phone: [facility] 11-29-2023 13:40-0400 Diastolic blood pressure 79 mm[Hg] Chair Anson Work Phone: [facility] 11-29-2023 13:40-0400 Heart rate 75 /min Chair Anson Work Phone: [facility] 11-29-2023 13:40-0400 Respiratory rate 16 /min Chair González Work Phone: [facility] 11-29-2023 13:40-0400 SaO2% (BldA) [Mass fraction] 99 % Chair González Work Phone: [facility] 11-29-2023 13:40-0400 Systolic blood pressure 114 mm[Hg] Chair Anson Work Phone: [facility] 11-22-2023 14:00-0400 Body temperature 98.2 [degF] Chair González Work Phone: [facility] 11-22-2023 14:00-0400 Diastolic blood pressure 75 mm[Hg] Chair Anson Work Phone: [facility] 11-22-2023 14:00-0400 Heart rate 79 /min Chair Anson Work Phone: [facility] 11-22-2023 14:00-0400 Respiratory rate 16 /min Chair González Work Phone: [facility] 11-22-2023 14:00-0400 SaO2% (BldA) [Mass fraction] 99 % Chair Anson Work Phone: [facility] 11-22-2023 14:00-0400 Systolic blood pressure 111 mm[Hg] Chair Anson Work Phone: [facility] 11-15-2023 14:08-0400 Diastolic blood pressure 84 mm[Hg] Chair Anson Work Phone: [facility] 11-15-2023 14:08-0400 Heart rate 85 /min Chair González Work Phone: [facility] 11-15-2023 14:08-0400 Respiratory rate 18 /min Chair González Work Phone: [facility] 11-15-2023 14:08-0400 SaO2% (BldA) [Mass fraction] 96 % Chair Anson Work Phone: [facility] 11-15-2023 14:08-0400 Systolic blood pressure 129 mm[Hg] Chair Anson Work Phone: [facility] 11-09-2023 14:44-0400 Blood Pressure Location Monica Saba [facility] 11-09-2023 14:44-0400 Body temperature 97.34 [degF] Monica Saba [facility] 11-09-2023 14:44-0400 Diastolic blood pressure 74 mm[Hg] Monica Saba [facility] 11-09-2023 14:44-0400 Heart rate 85 /min Monica Saba [facility] 11-09-2023 14:44-0400 Respiratory rate 16 /min Monica Saba [facility] 11-09-2023 14:44-0400 SaO2% (BldA) [Mass fraction] 99 % Monica Saba [facility] 11-09-2023 14:44-0400 Systolic blood pressure 122 mm[Hg] Monica Saba [facility] 10-23-2023 16:48-0400 Blood Pressure Location Lourdes Garber [facility] 10-23-2023 16:48-0400 Body temperature 97.52 [degF] Lourdes Garber [facility] 10-23-2023 16:48-0400 Diastolic blood pressure 60 mm[Hg] Lourdes Garber [facility] 10-23-2023 16:48-0400 Heart rate 86 /min Lourdes Garber [facility] 10-23-2023 16:48-0400 SaO2% (BldA) [Mass fraction] 99 % Lourdes Garber [facility] 10-23-2023 16:48-0400 Systolic blood pressure 122 mm[Hg] Lourdes Garber [facility] 09-28-2023 21:17-0400 Body temperature 98.06 [degF] Benny Uribe [facility] 09-28-2023 21:17-0400 Diastolic blood pressure 68 mm[Hg] Benny Rony [facility] 09-28-2023 21:17-0400 Heart rate 67 /min Benny Rony [facility] 09-28-2023 21:17-0400 Mean blood pressure 84 mm[Hg] Benny Rony [facility] 09-28-2023 21:17-0400 SaO2% (BldA) [Mass fraction] 95 % Benny Rony [facility] 09-28-2023 21:17-0400 Systolic blood pressure 117 mm[Hg] Benny Rony [facility] 09-28-2023 20:00-0400 Diastolic blood pressure 75 mm[Hg] Benny Rony [facility] 09-28-2023 20:00-0400 Heart rate 78 /min Benny Rony [facility] 09-28-2023 20:00-0400 Mean blood pressure 95 mm[Hg] Benny Rony [facility] 09-28-2023 20:00-0400 Respiratory rate 20 /min Benny Rony [facility] 09-28-2023 20:00-0400 Systolic blood pressure 134 mm[Hg] Benny Rony [facility] 09-28-2023 19:30-0400 Diastolic blood pressure 85 mm[Hg] Benny Rony [facility] 09-28-2023 19:30-0400 Heart rate 80 /min Benny Rony [facility] 09-28-2023 19:30-0400 Mean blood pressure 101 mm[Hg] Benny Rony [facility] 09-28-2023 19:30-0400 Respiratory rate 18 /min Benny Rony [facility] 09-28-2023 19:30-0400 SaO2% (BldA) [Mass fraction] 100 % Benny Rony [facility] 09-28-2023 19:30-0400 Systolic blood pressure 132 mm[Hg] Benny Rony [facility] 09-28-2023 19:00-0400 Respiratory rate 17 /min Benny Rony [facility] 09-28-2023 18:32-0400 Body temperature 98.42 [degF] Benny Rony [facility] 09-28-2023 18:32-0400 Heart rate 69 /min Benny Uribe [facility] 09-28-2023 17:46-0400 Diastolic blood pressure 90 mm[Hg] JANET DUNHAM [facility] 09-28-2023 17:46-0400 Mean blood pressure 109 mm[Hg] LAYLAND DUNHAM [facility] 09-28-2023 17:46-0400 Systolic blood pressure 148 mm[Hg] LAYLAND DUNHAM [facility] 09-28-2023 17:40-0400 Blood Pressure Location JANET DUNHAM [facility] 09-28-2023 17:40-0400 Body temperature 97.88 [degF] LAYLAND DUNHAM [facility] 09-28-2023 17:40-0400 Diastolic blood pressure 70 mm[Hg] LAYLAND DUNHAM [facility] 09-28-2023 17:40-0400 Heart rate 79 /min LAYLAND DUNHAM [facility] 09-28-2023 17:40-0400 SaO2% (BldA) [Mass fraction] 97 % LAYLAND DUNHAM [facility] 09-28-2023 17:40-0400 Systolic blood pressure 150 mm[Hg] LAYLAND DUNHAM [facility] 08-03-2023 11:42-0400 Blood Pressure Location Evans CASAS [facility] 08-03-2023 11:42-0400 Body temperature 98.06 [degF] Evans CASAS [facility] 08-03-2023 11:42-0400 Diastolic blood pressure 80 mm[Hg] Evans KAPLE [facility] 08-03-2023 11:42-0400 Heart rate 72 /min Evans KAPLE [facility] 08-03-2023 11:42-0400 Respiratory rate 16 /min Evans KAPLE [facility] 08-03-2023 11:42-0400 SaO2% (BldA) [Mass fraction] 99 % Evans KAPLE [facility] 08-03-2023 11:42-0400 Systolic blood pressure 120 mm[Hg] Evans KAPLE [facility] 06-15-2023 14:05-0500 Body height 167.7 cm Salvador Calix MD Work Phone: [facility] 06-15-2023 14:05-0500 Body temperature 97.39 [degF] Salvador Calix MD Work Phone: [facility] 06-15-2023 14:05-0500 Body weight 108.1 kg Salvador Calix MD Work Phone: [facility] 06-15-2023 14:05-0500 Diastolic blood pressure 75 mm[Hg] Salvador Calix MD Work Phone: [facility] 06-15-2023 14:05-0500 Heart rate 87 /min Salvador Calix MD Work Phone: [facility] 06-15-2023 14:05-0500 Respiratory rate 16 /min Salvador Calix MD Work Phone: [facility] 06-15-2023 14:05-0500 SaO2% (BldA) [Mass fraction] 95 % Salvador Calix MD Work Phone: [facility] 06-15-2023 14:05-0500 Systolic blood pressure 147 mm[Hg] Salvador Calix MD Work Phone: [facility] 05-25-2023 11:11-0500 Blood Pressure Location Evans KAPLE [facility] 05-25-2023 11:11-0500 Body temperature 97.7 [degF] Evans KAPLE [facility] 05-25-2023 11:11-0500 Diastolic blood pressure 70 mm[Hg] Evans KAPLE [facility] 05-25-2023 11:11-0500 Heart rate 76 /min Evans KAPLE [facility] 05-25-2023 11:11-0500 Respiratory rate 18 /min Evans KAPLE [facility] 05-25-2023 11:11-0500 SaO2% (BldA) [Mass fraction] 98 % Evans KAPLE [facility] 05-25-2023 11:11-0500 Systolic blood pressure 118 mm[Hg] Evans KAPLE [facility] 02-15-2023 09:41-0400 Blood Pressure Location Evans KAPLE [facility] 02-15-2023 09:41-0400 Body temperature 98.42 [degF] Evans KAPLE [facility] 02-15-2023 09:41-0400 Diastolic blood pressure 74 mm[Hg] Evans KAPLE [facility] 02-15-2023 09:41-0400 Heart rate 80 /min Evans KAPLE [facility] 02-15-2023 09:41-0400 Respiratory rate 18 /min Evans KAPLE [facility] 02-15-2023 09:41-0400 SaO2% (BldA) [Mass fraction] 98 % Evans KAPLE [facility] 02-15-2023 09:41-0400 Systolic blood pressure 122 mm[Hg] Evans KAPLE [facility] 10-20-2022 09:44-0400 Blood Pressure Location Evans KAPLE [facility] 10-20-2022 09:44-0400 Body temperature 98.24 [degF] Evans KAPLE [facility] 10-20-2022 09:44-0400 Diastolic blood pressure 81 mm[Hg] Evans KAPLE [facility] 10-20-2022 09:44-0400 Heart rate 88 /min Evans KAPLE [facility] 10-20-2022 09:44-0400 Respiratory rate 18 /min Evans KAPLE [facility] 10-20-2022 09:44-0400 SaO2% (BldA) [Mass fraction] 98 % Evans KAPLE [facility] 10-20-2022 09:44-0400 Systolic blood pressure 130 mm[Hg] Evans KAPLE [facility] 07-27-2022 13:18-0400 Body height 167.7 cm Salvador Calix MD Work Phone: [facility] 07-27-2022 13:18-0400 Body temperature 97.5 [degF] Salvador Calix MD Work Phone: [facility] 07-27-2022 13:18-0400 Body weight 107.78 kg Salvador Calix MD Work Phone: [facility] 07-27-2022 13:18-0400 Diastolic blood pressure 79 mm[Hg] Salvador Calix MD Work Phone: [facility] 07-27-2022 13:18-0400 Heart rate 76 /min Salvador Calix MD Work Phone: [facility] 07-27-2022 13:18-0400 Respiratory rate 16 /min Salvador Calix MD Work Phone: [facility] 07-27-2022 13:18-0400 SaO2% (BldA) [Mass fraction] 97 % Salvador Calix MD Work Phone: [facility] 07-27-2022 13:18-0400 Systolic blood pressure 136 mm[Hg] Salvador Calix MD Work Phone: [facility] 04-20-2022 13:45-0500 Body temperature 98.71 [degF] Chair González Work Phone: [facility] 04-20-2022 13:45-0500 Diastolic blood pressure 66 mm[Hg] Chair Anson Work Phone: [facility] 04-20-2022 13:45-0500 Heart rate 85 /min Chair Anson Work Phone: [facility] 04-20-2022 13:45-0500 SaO2% (BldA) [Mass fraction] 97 % Chair Anson Work Phone: [facility] 04-20-2022 13:45-0500 Systolic blood pressure 120 mm[Hg] Chair Anson Work Phone: [facility] 04-05-2022 16:27-0500 Diastolic blood pressure 65 mm[Hg] Chair Anson Work Phone: [facility] 04-05-2022 16:27-0500 Heart rate 84 /min Chair González Work Phone: [facility] 04-05-2022 16:27-0500 Respiratory rate 18 /min Chair González Work Phone: [facility] 04-05-2022 16:27-0500 SaO2% (BldA) [Mass fraction] 96 % Chair González Work Phone: [facility] 04-05-2022 16:27-0500 Systolic blood pressure 119 mm[Hg] Chair Gonzálze Work Phone: [facility] 03-27-2022 14:20-0500 Body height 167.7 cm Salvador Calix MD Work Phone: [facility] 03-27-2022 14:20-0500 Body temperature 97.39 [degF] Salvador Calix MD Work Phone: [facility] 03-27-2022 14:20-0500 Body weight 106.23 kg Salvador Calix MD Work Phone: [facility] 03-27-2022 14:20-0500 Diastolic blood pressure 59 mm[Hg] Salvador Calix MD Work Phone: [facility] 03-27-2022 14:20-0500 Heart rate 100 /min Salvador Calix MD Work Phone: [facility] 03-27-2022 14:20-0500 Respiratory rate 16 /min Salvador Calix MD Work Phone: [facility] 03-27-2022 14:20-0500 SaO2% (BldA) [Mass fraction] 97 % Salvador Calix MD Work Phone: [facility] 03-27-2022 14:20-0500 Systolic blood pressure 125 mm[Hg] Salvador Calix MD Work Phone: [facility] 01-30-2022 11:46-0400 Body height 167.7 cm Salvador Calix MD Work Phone: [facility] 01-30-2022 11:46-0400 Body temperature 97.2 [degF] Salvador Calix MD Work Phone: [facility] 01-30-2022 11:46-0400 Body weight 104.42 kg Salvador Calix MD Work Phone: [facility] 01-30-2022 11:46-0400 Diastolic blood pressure 61 mm[Hg] Salvador Calix MD Work Phone: [facility] 01-30-2022 11:46-0400 Heart rate 88 /min Salvador Calix MD Work Phone: [facility] 01-30-2022 11:46-0400 Respiratory rate 16 /min Salvador Calix MD Work Phone: [facility] 01-30-2022 11:46-0400 SaO2% (BldA) [Mass fraction] 99 % Salvador Calix MD Work Phone: [facility] 01-30-2022 11:46-0400 Systolic blood pressure 122 mm[Hg] Salvador Calix MD Work Phone: [facility] 08-19-2021 10:46-0400 Blood Pressure Location PERNELL SIDELL [facility] 08-19-2021 10:46-0400 Diastolic blood pressure 78 mm[Hg] PERNELL SIDELL [facility] 08-19-2021 10:46-0400 Heart rate 96 /min PERNELL SIDELL [facility] 08-19-2021 10:46-0400 SaO2% (BldA) [Mass fraction] 99 % PERNELL SIDELL [facility] 08-19-2021 10:46-0400 Systolic blood pressure 124 mm[Hg] PERNELL LONGORIA [facility] Encounters Encounter Date Encounter Type Care Provider Facility Start: 05-16-2024 ambulatory Evans CASAS Facility: [facility] Start: 05-06-2024 End: 05-06-2024 Bamboo flowsheet Wilton Montez DO Work Phone: [facility] Start: 05-06-2024 End: 05-06-2024 Bamboo flowsheet Wilton Montez DO Work Phone: [facility] Start: 05-06-2024 End: 05-06-2024 Office outpatient visit 15 minutes Wilton Montez DO Work Phone: [facility] Comment on above: 14 weeks gestation o f ; Second trimester ; Confirm viability with history of miscarriage, ultrasound Start: 04-28-2024 End: 04-28-2024 Refill Salvador Calix MD Work Phone: Hematology/Oncology Comment on above: Refill Request Start: 04-12-2024 End: 04-12-2024 Clinisync Result Encounter Wilton Montez DO Work Phone: [facility] Unsolicited Start: 04-12-2024 End: 04-12-2024 Clinisync Result Encounter Wilton Montez DO Work Phone: [facility] Unsolicited Start: 04-04-2024 End: 04-04-2024 Office outpatient visit 5 minutes [facility] Montez Nurse [facility] Comment on above: GA: [id number] Start: 03-01-2024 End: 03-01-2024 ambulatory Wilton R MONTEZ Facility:[facility] Start: 03-01-2024 End: 03-01-2024 Patient encounter procedure Wilton R MONTEZ [facility] Start: 02-27-2024 ambulatory Wilton R MONTEZ Facility: [facility] Start: 02-27-2024 End: 02-28-2024 Telephone encounter Naga Johnson RN Hematology/Oncology Comment on above: Patient Question Start: 02-25-2024 End: 02-25-2024 ambulatory Wilton R MONTEZ Facility:[facility] Start: 02-25-2024 End: 02-25-2024 Patient encounter procedure Wilton R MONTEZ [facility] Start: 02-23-2024 End: 02-23-2024 ambulatory Evans CASAS Facility:[facility] Start: 02-23-2024 End: 02-23-2024 Patient encounter procedure Wilton R MONTEZ [facility] Start: 02-05-2024 End: 02-05-2024 ambulatory Evans CASAS Facility:[facility] Start: 02-05-2024 End: 02-05-2024 Patient encounter procedure Evans CASAS [facility] Start: 02-05-2024 End: 02-05-2024 Well adult monitoring check done Evans CASAS [facility] Start: 02-02-2024 End: 02-02-2024 ambulatory Anni Gudimella Facility:[facility] Start: 02-02-2024 End: 02-02-2024 Patient encounter procedure Anni Gudimella [facility] Start: 01-29-2024 ambulatory Evans A PRAVEEN Facility: [facility] Start: 01-24-2024 End: 01-25-2024 Refill Salvador Calix MD Work Phone: Hematology/Oncology Comment on above: Refill Request Start: 01-02-2024 End: 01-07-2024 Telephone encounter Salvador Calix MD Work Phone: [facility] Comment on above: Results Start: 01-02-2024 End: 01-02-2024 Office outpatient visit 15 minutes Salvador Calix MD Work Phone: Hematology/Oncology Comment on above: 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); Vitamin D deficiency; Malaise and fatigue Start: 01-02-2024 End: 01-02-2024 ambulatory EVANS CASAS Facility:[facility] Start: 12-17-2023 End: 12-17-2023 Telephone encounter Naga Johnson RN Hematology/Oncology Start: 12-06-2023 End: 12-06-2023 ambulatory Monica Saba Facility:[facility] Start: 12-06-2023 End: 12-06-2023 Patient encounter procedure Monica Saba [facility] Start: 12-03-2023 ambulatory Evans CASAS Facility: [facility] Start: 11-29-2023 End: 11-29-2023 ambulatory Salvador Calix [...] End: 11-09-2023 Patient encounter procedure Monica Saba [facility] Start: 11-09-2023 End: 11-09-2023 Social Work [address] Krueger [facility] Hematology/Oncology Start: 11-05-2023 Telephone encounter Salvador garcia MD [facility] Comment on above: Appointment Start: 10-29-2023 End: 10-29-2023 ambulatory EVANS CASAS Facility:[facility] Start: 10-23-2023 End: 10-23-2023 ambulatory Lourdes Garber Facility:[facility] Start: 10-23-2023 End: 10-23-2023 Patient encounter procedure Lourdes Delaney Shirlene [facility] Start: 09-28-2023 End: 09-28-2023 Emergency department patient visit Benny Uribe [facility] Start: 09-28-2023 End: 09-28-2023 ambulatory NELI DUNHAM Facility:[facility] Start: 09-28-2023 End: 09-28-2023 Patient encounter procedure JANET DUNHAM [facility] Start: 09-27-2023 Telephone encounter Salvador garcia MD Work Phone: [facility] Comment on above: Appointment Reschedu led Start: 09-21-2023 End: 09-26-2023 ambulatory Salvador Calix MD Work Phone: Hematology/Oncology Comment on above: 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) Start: 09-21-2023 End: 09-26-2023 Telemedicine consultation with patient Salvador Calix MD Work Phone: Hematology/Oncology Start: 09-21-2023 End: 09-21-2023 ambulatory SALVADOR CALIX Facility:[facility] Start: 08-03-2023 End: 08-03-2023 ambulatory Evans CASAS Facility:[facility] Start: 08-03-2023 End: 08-03-2023 Patient encounter procedure Evans CASAS [facility] Start: 06-29-2023 End: 06-29-2023 ambulatory Evans Cecily PRAVEEN [facility] Start: 06-29-2023 End: 06-29-2023 Patient encounter procedure Evans Cecily PRAVEEN [facility] Start: 06-19-2023 ambulatory Naga Johnson RN Hemat ology/Oncology Comment on above: Lab results/recommen dations Start: 06-19-2023 E-mail encounter fro m caregiver Naga Johnson RN [facility] Start: 06-15-2023 End: 06-15-2023 Office outpatient visit 25 minutes Salvador Calix MD Work Phone: Hematology/Oncology Comment on above: Vitamin D deficiency (Primary Dx); Hypercalcemia; Iron deficiency anemia secondary to blood loss (chronic) Start: 06-15-2023 Telephone encounter Salvador garcia MD [facility] Comment on above: Results Start: 06-15-2023 End: 06-15-2023 ambulatory SALVADOR CALIX Facility:[facility] Start: 06-11-2023 Telephone encounter Salvador garcia MD Work Phone: Hematology/Oncology Comment on above: Lab Orders Start: 06-01-2023 Telephone encounter Salvador garcia MD Work Phone: Cancer Appts Comment on above: Future Appointment Start: 05-31-2023 [...] Start: 05-31-2023 End: 06-01-2023 ambulatory EVANS CASAS Facility:[facility] Start: 05-28-2023 End: 05-28-2023 ambulatory EVANS CASAS Facility:[facility] Start: 05-25-2023 End: 05-25-2023 ambulatory Evans CASAS Facility:[facility] Start: 05-25-2023 End: 05-25-2023 Patient encounter procedure Evans CASAS [facility] Start: 05-21-2023 ambulatory EVANS CASAS Facility: [facility] Start: 05-01-2023 End: 05-01-2023 ambulatory Evans CASAS Facility:[facility] Start: 04-27-2023 End: 04-27-2023 Lab Drop off Evans CASAS [facility] Start: 04-27-2023 End: 04-27-2023 ambulatory Evans CASAS Facility:[facility] Start: 04-25-2023 End: 04-25-2023 ambulatory Maxine Hong Facility:[facility] Start: 03-19-2023 End: 03-20-2023 ambulatory EVANS CASAS Facility:[facility] Start: 03-19-2023 End: 03-19-2023 ambulatory Salvador Calix MD Work Phone: Hematology/Oncology Comment on above: Primary hypercoagula ble state (HCC) (Primary Dx); Iron deficiency anemia secondary to blood loss (chronic); Vitamin D deficiency; CVA, old, speech/language deficit; Antiphospholipid antibody syndrome (HCC) Start: 03-19-2023 End: 03-19-2023 Telemedicine consultation with patient Salvador Calix MD Work Phone: [facility] Start: 03-13-2023 End: 03-13-2023 ambulatory EVANS Cecily PRAVEEN Facility:[facility] Start: 02-15-2023 End: 02-15-2023 ambulatory Evans Cecily PRAVEEN Facility:[facility] Start: 02-15-2023 End: 02-15-2023 Patient encounter procedure Evans CASAS [facility] Start: 02-13-2023 ambulatory Evans Tony STEPHANIBEN Facility: [facility] Start: 12-26-2022 End: 12-26-2022 ambulatory Lourdes Garber Facility:[facility] Start: 12-26-2022 End: 12-26-2022 Patient encounter procedure Lourdes Garber [facility] Start: 12-22-2022 End: 12-22-2022 ambulatory Salvador Calix MD Work Phone: Hematology/Oncology Comment on above: Primary hypercoagula ble state (HCC) (Primary Dx); Iron deficiency anemia of ; Iron deficiency anemia secondary to blood loss (chronic); Vitamin D deficiency Start: 12-22-2022 End: 12-22-2022 Telemedicine consultation with patient Salvador Calix MD Work Phone: [facility] Start: 12-11-2022 Telephone encounter Salvador garcia MD Work Phone: Cancer [facility] Comment on above: Appointment Start: 10-20-2022 End: 10-20-2022 Patient encounter procedure Evans CASAS [facility] Start: 09-28-2022 End: 09-28-2022 ambulatory Salvador Calix MD Work Phone: Hematology/Oncology Comment on above: Primary hypercoagula ble state (HCC); CVA, old, speech/language deficit; Cerebral hyponatremia Start: 09-28-2022 End: 09-28-2022 Telemedicine consultation with patient Salvador Calix MD Work Phone: [facility] Start: 09-26-2022 End: 09-26-2022 Patient encounter procedure Salvador Calix [facility] Start: 09-19-2022 Telephone encounter Valeri Yan RN Hematology/Oncology Comment on above: Orders Start: 09-05-2022 End: 09-05-2022 Patient encounter procedure Wilton R MONTEZ [facility] Start: 08-07-2022 End: 08-07-2022 Patient encounter procedure Wilton R MONTEZ [facility] Start: 07-27-2022 End: 07-27-2022 Office outpatient visit 25 minutes Salvador Calix MD Work Phone: Hematology/Oncology Comment on above: Primary hypercoagula ble state (HCC) (Primary Dx); Iron deficiency anemia secondary to blood loss (chronic); CVA, old, speech/language deficit Start: 07-03-2022 Refill aSlvador palmer MD Work Phone: Hematology/Oncology Comment on [...] Facility:[facility] Start: 04-20-2022 End: 04-21-2022 ambulatory Chair 10 González Work Phone: Hematology/Oncology Comment on above: [...] Request Start: 04-05-2022 End: 04-05-2022 ambulatory Chair 11 González Work Phone: Hematology/Oncology Comment on above: [...] encounter Salvador garcia MD Work Phone: Cancer [facility] Comment on above: Results Start: 03-24-2022 [...] encounter procedure Salvador Calix MD Work Phone: [facility] [place] Start: 01-24-2022 End: 01-25-[address] WILTON HERRMANN Facility:[facility] Start: 01-24-2022 End: 01-25-[address] WILTON HERRMANN Facility:[facility] Start: 01-07-2022 End: 01-08-[address] WILTON HERRMANN Facility:[facility] Start: 12-30-2021 Refill Tonja Wallace RN Work Phone: Hematology/Oncology Comment on above: Refill Request Start: 12-28-2021 End: 12-29-[address] WILTON HERRMANN Facility:[facility] Start: 11-21-2021 End: 11-22-2021 ambulatory EVANS CASAS [facility] Start: 11-21-2021 End: 11-21-2021 Subsequent hospital visit by physician Evans Casas Work Phone: [facility] Start: 11-14-2021 End: 02-13-2022 Patient encounter procedure SELF REFERRAL [facility] Start: 11-04-[address] WILTON HERRMANN Facility :[facility] Start: 10-25-2021 End: 10-26-[address] WILTON HERRMANN Facility:[facility] Start: 10-10-2021 Refill Meme Easton RN [facility] tology/Oncology Comment on above: Refill Request Start: 09-23-2021 End: 09-24-[address] WILTON HERRMANN Facility:[facility] Start: 09-06-2021 Telephone encounter Meme Easton RN Hematology/Oncology Comment on above: Medication Question Start: 09-02-2021 Telephone encounter Meme Easton RN Hematology/Oncology Comment on above: Patient Question Start: 09-01-2021 End: 09-02-[address] WILTON HERRMANN Facility:[facility] Start: 08-31-2021 End: 08-31-2021 Patient encounter procedure Evans CASAS [facility] Start: 08-29-2021 End: 08-30-[address] WILTON HERRMANN Facility:[facility] Start: 08-26-2021 End: 08-27-[address] WILTON HERRMANN Facility:[facility] Start: 08-24-2021 End: 08-25-[address] WILTON HERRMANN Facility:[facility] Start: 08-22-2021 Telephone encounter Meme Easton RN Hematology/Oncology Comment on above: Patient Question Start: 08-19-2021 End: 08-19-2021 Patient encounter procedure PERNELL LONGORIA [facility] Start: 08-19-2021 End: 08-19-2021 Lab Drop off PERNELL W SIDELL [facility] Start: 08-19-2021 End: 08-19-2021 Patient encounter procedure PERNELL W SIDELL [facility] Start: 08-01-2021 Telephone encounter Salvador garcia MD Work Phone: Cancer [facility] Comment on above: Future Appointment Start: 08-01-2021 End: 08-01-2021 Nursing evaluation of patient and report Nevin Pacheco Delgado Chantel Work Phone: Hematology/Oncology Comment on above: Infective urethritis (Primary Dx) Start: 06-03-2018 Patient encounter procedure Haseeb Morel Facility:[facility] Start: 11-08-2017 Patient encounter procedure ERIKA LONDON Facility:[id number] Start: 05-25-2017 End: 05-26-[address] [facility] Procedures Date Procedure Procedure Detail Performing Clinician Start: 05-06-2024 Urnls dip stick/tablet rgnt non-auto w/o micrscp Wilton Montez DO Work Phone: Start: 04-12-2024 BOX TEST [employer] DO Work Phone: Start: 04-12-2024 [facility] DRUG SCREEN RAPID (URINE) [employer] Work Phone: Start: 04-04-2024 End: 04-04-2024 Urnls dip stick/tablet rgnt non-auto w/o micrscp Wilton Montez DO Work Phone: Start: 11-15-2023 Vaccine refused [...] MONGE Start: 05-25-2017 MYELIN BASIC PROTEIN, CSF PNEG MONGE Start: 05-25-2017 OLIGOCLONAL BANDING PENG MONGE [...] MONGE Start: 06-14-2013 Biopsy of breast PERNELL [place] Start: 04-30-2006 Extraction of wisdom tooth PERNELL SIDEMICHELLE endoscopy for ovaria n cysts to drain PERNELL SIDEMICHELLE Vaccine refused by patient COVID -19 vaccine dose declined( Confirmed ) PERNELL SIDEMICHELLE Plan of Treatment Date Care Activity Detail Author Start: 07-03-2024 DTaP/Tdap/Td vaccine (2 - Td or Tdap) DTaP/Tdap/Td vaccine (2 - Td or Tdap) [facility] Start: 07-03-2024 Urine microalbumin profile [facility] Start: 05-21-2024 End: 05-21-2024 Follow-up encounter 05/21/2024 2:20 PM EST Visit (SP) Office Hematology/Oncology [address] [place] [address] [place] [address] Salvador Calix MD [address] [place] [address] [place] [address] 3 month follow up with lab Hematology/Oncology Comment on above: 3 month follow up [facility] Start: 05-21-2024 End: 05-21-2024 Patient encounter procedure 05/21/2024 2:00 PM EST Office Visit [facility] [address] [place] [address] [place] [address] 3 month follow up with lab [facility] Comment on above: 3 month follow up wi th lab Start: 05-06-2024 End: 05-06-2025 US for [facility] Work Phone: Comment on above: Expected: 05/06/2024 , Expires: 05/06/2025 Start: 05-06-2024 End: 05-06-2024 Patient encounter procedure 05/06/2024 1:50 PM EST Routine [facility] [address] [place] [address] Wilton Herrmann, [address] [place], [place] [id number] [facility] Start: 04-09-2024 End: 04-09-2024 Follow-up encounter Hematology/Oncology Comment on above: 3 month follow up wi lab Start: 04-09-2024 End: 04-09-2024 Patient encounter procedure [facility] Comment on above: 3 month follow up wi lab Start: 04-04-2024 End: 04-04-2025 ABO/Rh ABO/Rh Lab Routine Missed menses , unspecified gestational age Expected: 04/04/2024 (Approximate), Expires: 04/04/2025 [facility] Comment on above: Expected: 04/04/2024 (Approximate), Expires: 04/04/2025 Start: 04-04-2024 End: 04-04-2025 Blood type and Indirect antibody screen panel - Blood Type and screen Lab Routine Missed menses , unspecified gestational age Expected: 04/04/2024 (Approximate), Expires: 04/04/2025 [facility] Work Phone: Comment on above: Expected: 04/04/2024 (Approximate), Expires: 04/04/2025 Start: 04-04-2024 End: 04-04-2025 Drugs of abuse panel - Urine by Screen method Rapid drug screen, urine Lab Routine , unspecified gestational age Encounter for supervision of normal first in first trimester Expected: 04/04/2024 (Approximate), Expires: 04/04/2025 [facility] Comment on above: Expected: 04/04/2024 (Approximate), Expires: 04/04/2025 Start: 04-04-2024 End: 04-04-2025 US Pelvis transvaginal US OB transvaginal Imaging Routine Missed menses Expected: 04/04/2024 (Approximate), Expires: 04/04/2025 [facility] Comment on above: Expected: 04/04/2024 (Approximate), Expires: 04/04/2025 Start: 04-02-2024 End: 07-02-2024 25-hydroxyvitamin D3 [Mass/volume] in Serum or Plasma VITAMIN D 25 HYDROXY Lab Routine Iron deficiency anemia secondary to blood loss (chronic) Vitamin D deficiency Malaise and fatigue Expected: 04/02/2024 (Approximate), Expires: 07/02/2024 [facility] Comment on above: Expected: 04/02/2024 (Approximate), Expires: 07/02/2024 Start: 04-02-2024 End: 01-01-2025 CBC W Auto Differential panel - Blood COMPLETE BLOOD COUNT AND DIFFERENTIAL Lab Routine Iron deficiency anemia secondary to blood loss (chronic) Vitamin D deficiency Malaise and fatigue Expected: 04/02/2024 (Approximate), Expires: 01/01/2025 [facility] Comment on above: Expected: 04/02/2024 (Approximate), Expires: 01/01/2025 Start: 04-02-2024 End: 01-01-2025 Cobalamin (Vitamin B12) [Mass/volume] in Serum or Plasma VITAMIN B12 Lab Routine Iron deficiency anemia secondary to blood loss (chronic) Vitamin D deficiency Malaise and fatigue Expected: 04/02/2024 (Approximate), Expires: 01/01/2025 [facility] Comment on above: Expected: 04/02/2024 (Approximate), Expires: 01/01/2025 Start: 04-02-2024 End: 01-01-2025 Comprehensive metabolic 2000 panel - Serum or Plasma COMPREHENSIVE METABOLIC PANEL Lab Routine Iron deficiency anemia secondary to blood loss (chronic) Vitamin D deficiency Malaise and fatigue Expected: 04/02/2024 (Approximate), Expires: 01/01/2025 [facility] Comment on above: Expected: 04/02/2024 (Approximate), Expires: 01/01/2025 Start: 04-02-2024 End: 01-01-2025 Ferritin [Mass/volume] in Serum or Plasma FERRITIN Lab Routine Iron deficiency anemia secondary to blood loss (chronic) Vitamin D deficiency Malaise and fatigue Expected: 04/02/2024 (Approximate), Expires: 01/01/2025 [facility] Comment on above: Expected: 04/02/2024 (Approximate), Expires: 01/01/2025 Start: 04-02-2024 End: 01-01-2025 Folate [Mass/volume] in Serum or Plasma FOLATE, SERUM Lab Routine Iron deficiency anemia secondary to blood loss (chronic) Vitamin D deficiency Malaise and fatigue Expected: 04/02/2024 (Approximate), Expires: 01/01/2025 [facility] Comment on above: Expected: 04/02/2024 (Approximate), Expires: 01/01/2025 Start: 04-02-2024 End: 01-01-2025 Iron and Iron binding capacity panel - Serum or Plasma IRON AND TIBC Lab Routine Iron deficiency anemia secondary to blood loss (chronic) Vitamin D deficiency Malaise and fatigue Expected: 04/02/2024 (Approximate), Expires: 01/01/2025 [facility] Comment on above: Expected: 04/02/2024 (Approximate), Expires: 01/01/2025 Start: 04-02-2024 End: 07-02-2024 Thyrotropin [Units/volume] in Serum or Plasma THYROID STIMULATING HORMONE Lab Routine Iron deficiency anemia secondary to blood loss (chronic) Vitamin D deficiency Malaise and fatigue Expected: 04/02/2024 (Approximate), Expires: 07/02/2024 Work Phone: Comment on above: Expected: 04/02/2024 (Approximate), Expires: 07/02/2024 Start: 01-05-2024 End: 01-01-2025 CBC W Auto Differential panel - Blood COMPLETE BLOOD COUNT AND DIFFERENTIAL Lab Routine Iron deficiency anemia secondary to blood loss (chronic) Vitamin D deficiency Malaise and fatigue Expected: 01/05/2024 (Approximate), Expires: 01/01/2025 [facility] Comment on above: Expected: 01/05/2024 (Approximate), Expires: 01/01/2025 Start: 01-05-2024 End: 01-01-2025 Comprehensive metabolic 2000 panel - Serum or Plasma COMPREHENSIVE METABOLIC PANEL Lab Routine Iron deficiency anemia secondary to blood loss (chronic) Vitamin D deficiency Malaise and fatigue Expected: 01/05/2024 (Approximate), Expires: 01/01/2025 [facility] Comment on above: Expected: 01/05/2024 (Approximate), Expires: 01/01/2025 Start: 01-02-2024 End: 01-02-2024 Follow-up encounter 01/02/2024 1:45 PM EDT Visit (SP) Office Hematology/Oncology [address] [place] [address] Salvador Calix MD [address] [place] [address] 8 WEEK FOLLOW UP Hematology/Oncology Comment on above: 8 WEEK FOLLOW UP Start: 01-02-2024 End: 01-02-2024 Patient encounter procedure 01/02/2024 1:30 PM EDT Office Visit [facility] [address] [place] [address] [place] [address] 8 WEEK FOLLOW UP [facility] Comment on above: 8 WEEK FOLLOW UP Start: 12-30-2023 Covid-19 Vaccine ( season) Covid-19 Vaccine ( season) [facility] Start: 12-30-2023 Covid-19 Vaccine ( season) Covid-19 Vaccine ( season) [facility] Start: 12-30-2023 Influenza vaccination [facility] Start: 11-29-2023 End: 11-29-2023 ambulatory 11/29/2023 1:30 PM EDT [facility] Hematology/Oncology [address] [place] [address] [address] Hematology/Oncology Comment on above: [address] Start: 11-22-2023 End: 11-22-2023 ambulatory 11/22/2023 1:30 PM EDT Infusion Center Hematology/Oncology [address] [place] [address] [address] Hematology/Oncology Comment on above: [address] Start: 11-15-2023 End: 11-15-2023 ambulatory 11/15/2023 1:30 PM EDT Infusion Center Hematology/Oncology [address] [place] [address] [address] Hematology/Oncology Comment on above: [address] Start: 09-13-2023 End: 12-13-2023 25-hydroxyvitamin D3 [Mass/volume] in Serum or Plasma VITAMIN D 25 HYDROXY Lab Routine Vitamin D deficiency 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) Expected: 09/13/2023 (Approximate), Expires: 12/13/2023 Work Phone: Comment on above: Expected: 09/13/2023 (Approximate), Expires: 12/13/2023 Start: 09-13-2023 End: 12-13-2023 Calcium.ionized [Moles/volume] in Blood CALCIUM IONIZED BLOOD Lab Routine Vitamin D deficiency 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) Expected: 09/13/2023 (Approximate), Expires: 12/13/2023 Work Phone: Comment on above: Expected: 09/13/2023 (Approximate), Expires: 12/13/2023 Start: 09-13-2023 End: 06-15-2024 CBC W Auto Differential panel - Blood CBC + DIFF Lab Routine Vitamin D deficiency 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) Expected: 09/13/2023 (Approximate), Expires: 06/15/2024 Work Phone: Comment on above: Expected: 09/13/2023 (Approximate), Expires: 06/15/2024 Start: 09-13-2023 End: 06-15-2024 Cobalamin (Vitamin B12) [Mass/volume] in Serum or Plasma VITAMIN B12 BLOOD Lab Routine Vitamin D deficiency 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) Expected: 09/13/2023 (Approximate), Expires: 06/15/2024 Work Phone: Comment on above: Expected: 09/13/2023 (Approximate), Expires: 06/15/2024 Start: 09-13-2023 End: 06-15-2024 Comprehensive metabolic 2000 panel - Serum or Plasma COMP METABOLIC PANEL Lab Routine Vitamin D deficiency 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) Expected: 09/13/2023 (Approximate), Expires: 06/15/2024 Work Phone: Comment on above: Expected: 09/13/2023 (Approximate), Expires: 06/15/2024 Start: 09-13-2023 End: 06-15-2024 Ferritin [Mass/volume] in Serum or Plasma FERRITIN BLD Lab Routine Vitamin D deficiency 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) Expected: 09/13/2023 (Approximate), Expires: 06/15/2024 Work Phone: Comment on above: Expected: 09/13/2023 (Approximate), Expires: 06/15/2024 Start: 09-13-2023 End: 06-15-2024 Folate [Mass/volume] in Serum or Plasma FOLATE SERUM Lab Routine Vitamin D deficiency 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) Expected: 09/13/2023 (Approximate), Expires: 06/15/2024 Work Phone: Comment on above: Expected: 09/13/2023 (Approximate), Expires: 06/15/2024 Start: 09-13-2023 End: 06-15-2024 Iron and Iron binding capacity panel - Serum or Plasma IRON + TIBC Lab Routine Vitamin D deficiency 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) Expected: 09/13/2023 (Approximate), Expires: 06/15/2024 Work Phone: Comment on above: Expected: 09/13/2023 (Approximate), Expires: 06/15/2024 Start: 09-13-2023 End: 12-13-2023 Parathyrin.intact [Mass/volume] in Serum or Plasma PTH INTACT BLD Lab Routine Vitamin D deficiency 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) Expected: 09/13/2023 (Approximate), Expires: 12/13/2023 Work Phone: Comment on above: Expected: 09/13/2023 (Approximate), Expires: 12/13/2023 Start: 06-15-2023 End: 09-14-2023 25-hydroxyvitamin D3 [Mass/volume] in Serum or Plasma VITAMIN D 25 HYDROXY Lab Routine Vitamin D deficiency Expected: 06/15/2023 (Approximate), Expires: 09/14/2023 Work Phone: Comment on above: Expected: 06/15/2023 (Approximate), Expires: 09/14/2023 Start: 06-15-2023 End: 09-14-2023 Calcium.ionized [Moles/volume] in Blood CALCIUM IONIZED BLOOD Lab Routine Vitamin D deficiency Hypercalcemia Expected: 06/15/2023 (Approximate), Expires: 09/14/2023 Work Phone: Comment on above: Expected: 06/15/2023 (Approximate), Expires: 09/14/2023 Start: 06-15-2023 End: 06-12-2024 CBC W Auto Differential panel - Blood CBC + DIFF Lab Routine Iron deficiency anemia secondary to blood loss (chronic) Expected: 06/15/2023 (Approximate), Expires: 06/12/2024 Work Phone: Comment on above: Expected: 06/15/2023 (Approximate), Expires: 06/12/2024 Start: 06-15-2023 End: 06-12-2024 Cobalamin (Vitamin B12) [Mass/volume] in Serum or Plasma VITAMIN B12 BLOOD Lab Routine Iron deficiency anemia secondary to blood loss (chronic) Expected: 06/15/2023 (Approximate), Expires: 06/12/2024 Work Phone: Comment on above: Expected: 06/15/2023 (Approximate), Expires: 06/12/2024 Start: 06-15-2023 End: 06-12-2024 Comprehensive metabolic 2000 panel - Serum or Plasma COMP METABOLIC PANEL Lab Routine Iron deficiency anemia secondary to blood loss (chronic) Expected: 06/15/2023 (Approximate), Expires: 06/12/2024 Work Phone: Comment on above: Expected: 06/15/2023 (Approximate), Expires: 06/12/2024 Start: 06-15-2023 End: 06-12-2024 Ferritin [Mass/volume] in Serum or Plasma FERRITIN BLD Lab Routine Iron deficiency anemia secondary to blood loss (chronic) Expected: 06/15/2023 (Approximate), Expires: 06/12/2024 Work Phone: Comment on above: Expected: 06/15/2023 (Approximate), Expires: 06/12/2024 Start: 06-15-2023 End: 06-12-2024 Folate [Mass/volume] in Serum or Plasma FOLATE SERUM Lab Routine Iron deficiency anemia secondary to blood loss (chronic) Expected: 06/15/2023 (Approximate), Expires: 06/12/2024 Work Phone: Comment on above: Expected: 06/15/2023 (Approximate), Expires: 06/12/2024 Start: 06-15-2023 End: 06-12-2024 Iron and Iron binding capacity panel - Serum or Plasma IRON + TIBC Lab Routine Iron deficiency anemia secondary to blood loss (chronic) Expected: 06/15/2023 (Approximate), Expires: 06/12/2024 Work Phone: Comment on above: Expected: 06/15/2023 (Approximate), Expires: 06/12/2024 Start: 06-15-2023 End: 09-14-2023 PTH, INTACT (WITHOUT CALCIUM) PTH, INTACT (WITHOUT CALCIUM) Lab Routine Vitamin D deficiency Hypercalcemia Expected: 06/15/2023 (Approximate), Expires: 09/14/2023 Work Phone: Comment on above: Expected: 06/15/2023 (Approximate), Expires: 09/14/2023 Start: 06-15-2023 End: 09-14-2023 Thyrotropin [Units/volume] in Serum or Plasma TSH BLD Lab Routine Malaise and fatigue Expected: 06/15/2023 (Approximate), Expires: 09/14/2023 Work Phone: Comment on above: Expected: 06/15/2023 (Approximate), Expires: 09/14/2023 Start: 06-14-2023 End: 09-13-2023 25-hydroxyvitamin D3 [Mass/volume] in Serum or Plasma VITAMIN D 25 HYDROXY Lab Routine Hypercalcemia Vitamin D deficiency Expected: 06/14/2023 (Approximate), Expires: 09/13/2023 Work Phone: Comment on above: Expected: 06/14/2023 (Approximate), Expires: 09/13/2023 Start: 06-14-2023 End: 09-13-2023 Calcium.ionized [Moles/volume] in Blood CALCIUM IONIZED BLOOD Lab Routine Hypercalcemia Vitamin D deficiency Expected: 06/14/2023 (Approximate), Expires: 09/13/2023 Work Phone: Comment on above: Expected: 06/14/2023 (Approximate), Expires: 09/13/2023 Start: 06-14-2023 End: 09-13-2023 PTH, INTACT (WITHOUT CALCIUM) PTH, INTACT (WITHOUT CALCIUM) Lab Routine Hypercalcemia Vitamin D deficiency Expected: 06/14/2023 (Approximate), Expires: 09/13/2023 Work Phone: Comment on above: Expected: 06/14/2023 (Approximate), Expires: 09/13/2023 Start: 06-14-2023 End: 09-13-2023 Thyrotropin [Units/volume] in Serum or Plasma TSH BLD Lab Routine Hypercalcemia Malaise and fatigue Expected: 06/14/2023 (Approximate), Expires: 09/13/2023 Work Phone: Comment on above: Expected: 06/14/2023 (Approximate), Expires: 09/13/2023 Start: 05-14-2023 End: 03-19-2024 CBC W Auto Differential panel - Blood CBC + DIFF Lab Routine Primary hypercoagulable state (HCC) Iron deficiency anemia secondary to blood loss (chronic) Vitamin D deficiency CVA, old, 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) Expected: 05/14/2023 (Approximate), Expires: 03/19/2024 Work Phone: Comment on above: Expected: 05/14/2023 (Approximate), Expires: 03/19/2024 Start: 05-14-2023 End: 03-19-2024 Cobalamin (Vitamin B12) [Mass/volume] in Serum or Plasma VITAMIN B12 BLOOD Lab Routine Primary hypercoagulable state (HCC) Iron deficiency anemia secondary to blood loss (chronic) Vitamin D deficiency CVA, old, 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) Expected: 05/14/2023 (Approximate), Expires: 03/19/2024 Work Phone: Comment on above: Expected: 05/14/2023 (Approximate), Expires: 03/19/2024 Start: 05-14-2023 End: 03-19-2024 Comprehensive metabolic 2000 panel - Serum or Plasma COMP METABOLIC PANEL Lab Routine Primary hypercoagulable state (HCC) Iron deficiency anemia secondary to blood loss (chronic) Vitamin D deficiency CVA, old, 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) Expected: 05/14/2023 (Approximate), Expires: 03/19/2024 Work Phone: Comment on above: Expected: 05/14/2023 (Approximate), Expires: 03/19/2024 Start: 05-14-2023 End: 03-19-2024 Ferritin [Mass/volume] in Serum or Plasma FERRITIN BLD Lab Routine Primary hypercoagulable state (HCC) Iron deficiency anemia secondary to blood loss (chronic) Vitamin D deficiency CVA, old, 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) Expected: 05/14/2023 (Approximate), Expires: 03/19/2024 Work Phone: Comment on above: Expected: 05/14/2023 (Approximate), Expires: 03/19/2024 Start: 05-14-2023 End: 03-19-2024 Folate [Mass/volume] in Serum or Plasma FOLATE SERUM Lab Routine Primary hypercoagulable state (HCC) Iron deficiency anemia secondary to blood loss (chronic) Vitamin D deficiency CVA, old, 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) Expected: 05/14/2023 (Approximate), Expires: 03/19/2024 Work Phone: Comment on above: Expected: 05/14/2023 (Approximate), Expires: 03/19/2024 Start: 05-14-2023 End: 03-19-2024 Iron and Iron binding capacity panel - Serum or Plasma IRON + TIBC Lab Routine Primary hypercoagulable state (HCC) Iron deficiency anemia secondary to blood loss (chronic) Vitamin D deficiency CVA, old, 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) Expected: 05/14/2023 (Approximate), Expires: 03/19/2024 Work Phone: Comment on above: Expected: 05/14/2023 (Approximate), Expires: 03/19/2024 Start: 04-30-2023 Behavioral Health Screening Behavioral Health Screening [facility] Start: 04-30-2023 Depression Assessment Depression Ass essment [facility] Start: 02-16-2023 End: 04-18-2023 25-hydroxyvitamin D3 [Mass/volume] in Serum or Plasma VITAMIN D 25 HYDROXY Lab Routine Primary hypercoagulable state (HCC) Iron deficiency anemia secondary to blood loss (chronic) Vitamin D deficiency Expected: 02/16/2023 (Approximate), Expires: 04/18/2023 Work Phone: Comment on above: Expected: 02/16/2023 (Approximate), Expires: 04/18/2023 Start: 02-16-2023 End: 12-23-2023 CBC W Auto Differential panel - Blood CBC + DIFF Lab Routine Primary hypercoagulable state (HCC) Iron deficiency anemia secondary to blood loss (chronic) Expected: 02/16/2023 (Approximate), Expires: 12/23/2023 Work Phone: Comment on above: Expected: 02/16/2023 (Approximate), Expires: 12/23/2023 Start: 02-16-2023 End: 12-23-2023 Cobalamin (Vitamin B12) [Mass/volume] in Serum or Plasma VITAMIN B12 BLOOD Lab Routine Primary hypercoagulable state (HCC) Iron deficiency anemia secondary to blood loss (chronic) Expected: 02/16/2023 (Approximate), Expires: 12/23/2023 Work Phone: Comment on above: Expected: 02/16/2023 (Approximate), Expires: 12/23/2023 Start: 02-16-2023 End: 12-23-2023 Comprehensive metabolic 2000 panel - Serum or Plasma COMP METABOLIC PANEL Lab Routine Primary hypercoagulable state (HCC) Iron deficiency anemia secondary to blood loss (chronic) Expected: 02/16/2023 (Approximate), Expires: 12/23/2023 Work Phone: Comment on above: Expected: 02/16/2023 (Approximate), Expires: 12/23/2023 Start: 02-16-2023 End: 12-23-2023 Ferritin [Mass/volume] in Serum or Plasma FERRITIN BLD Lab Routine Primary hypercoagulable state (HCC) Iron deficiency anemia secondary to blood loss (chronic) Expected: 02/16/2023 (Approximate), Expires: 12/23/2023 Work Phone: Comment on above: Expected: 02/16/2023 (Approximate), Expires: 12/23/2023 Start: 02-16-2023 End: 12-23-2023 Folate [Mass/volume] in Serum or Plasma FOLATE SERUM Lab Routine Primary hypercoagulable state (HCC) Iron deficiency anemia secondary to blood loss (chronic) Expected: 02/16/2023 (Approximate), Expires: 12/23/2023 Work Phone: Comment on above: Expected: 02/16/2023 (Approximate), Expires: 12/23/2023 Start: 02-16-2023 End: 12-23-2023 Iron and Iron binding capacity panel - Serum or Plasma IRON + TIBC Lab Routine Primary hypercoagulable state (HCC) Iron deficiency anemia secondary to blood loss (chronic) Expected: 02/16/2023 (Approximate), Expires: 12/23/2023 Work Phone: Comment on above: Expected: 02/16/2023 (Approximate), Expires: 12/23/2023 Start: 12-29-2022 Covid-19 Vaccine () Covid-19 Vaccine () [facility] Start: 12-29-2022 Influenza vaccination [facility] Start: 12-04-2022 PAP TESTING PAP TESTING [facility] Start: 12-04-2022 Screening for malign ant neoplasm of cervix Pap Testing [facility] Start: 11-28-2022 End: 10-04-2023 CBC W Auto Differential panel - Blood CBC + DIFF Lab Routine Primary hypercoagulable state (HCC) CVA, old, speech/language deficit Cerebral hyponatremia Expected: 11/28/2022 (Approximate), Expires: 10/04/2023 Work Phone: Comment on above: Expected: 11/28/2022 (Approximate), Expires: 10/04/2023 Start: 11-28-2022 End: 10-04-2023 Cobalamin (Vitamin B12) [Mass/volume] in Serum or Plasma VITAMIN B12 BLOOD Lab Routine Primary hypercoagulable state (HCC) CVA, old, speech/language deficit Cerebral hyponatremia Expected: 11/28/2022 (Approximate), Expires: 10/04/2023 Work Phone: Comment on above: Expected: 11/28/2022 (Approximate), Expires: 10/04/2023 Start: 11-28-2022 End: 10-04-2023 Comprehensive metabolic 2000 panel - Serum or Plasma COMP METABOLIC PANEL Lab Routine Primary hypercoagulable state (HCC) CVA, old, speech/language deficit Cerebral hyponatremia Expected: 11/28/2022 (Approximate), Expires: 10/04/2023 Work Phone: Comment on above: Expected: 11/28/2022 (Approximate), Expires: 10/04/2023 Start: 11-28-2022 End: 10-04-2023 Ferritin [Mass/volume] in Serum or Plasma FERRITIN BLD Lab Routine Primary hypercoagulable state (HCC) CVA, old, speech/language deficit Cerebral hyponatremia Expected: 11/28/2022 (Approximate), Expires: 10/04/2023 Work Phone: Comment on above: Expected: 11/28/2022 (Approximate), Expires: 10/04/2023 Start: 11-28-2022 End: 10-04-2023 Folate [Mass/volume] in Serum or Plasma FOLATE SERUM Lab Routine Primary hypercoagulable state (HCC) CVA, old, speech/language deficit Cerebral hyponatremia Expected: 11/28/2022 (Approximate), Expires: 10/04/2023 Work Phone: Comment on above: Expected: 11/28/2022 (Approximate), Expires: 10/04/2023 Start: 11-28-2022 End: 10-04-2023 Iron and Iron binding capacity panel - Serum or Plasma IRON + TIBC Lab Routine Primary hypercoagulable state (HCC) CVA, old, speech/language deficit Cerebral hyponatremia Expected: 11/28/2022 (Approximate), Expires: 10/04/2023 Work Phone: Comment on above: Expected: 11/28/2022 (Approximate), Expires: 10/04/2023 Start: 09-21-2022 End: 07-28-2023 CBC W Auto Differential panel - Blood CBC + DIFF Lab Routine Primary hypercoagulable state (HCC) 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, old, speech/language deficit Expected: 09/21/2022 (Approximate), Expires: 07/28/2023 Work Phone: Comment on above: Expected: 09/21/2022 (Approximate), Expires: 07/28/2023 Start: 09-21-2022 End: 07-28-2023 Cobalamin (Vitamin B12) [Mass/volume] in Serum or Plasma VITAMIN B12 BLOOD Lab Routine Primary hypercoagulable state (HCC) 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, old, speech/language deficit Expected: 09/21/2022 (Approximate), Expires: 07/28/2023 Work Phone: Comment on above: Expected: 09/21/2022 (Approximate), Expires: 07/28/2023 Start: 09-21-2022 End: 07-28-2023 Comprehensive metabolic 2000 panel - Serum or Plasma COMP METABOLIC PANEL Lab Routine Primary hypercoagulable state (HCC) 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, old, speech/language deficit Expected: 09/21/2022 (Approximate), Expires: 07/28/2023 Work Phone: Comment on above: Expected: 09/21/2022 (Approximate), Expires: 07/28/2023 Start: 09-21-2022 End: 07-28-2023 Ferritin [Mass/volume] in Serum or Plasma FERRITIN BLD Lab Routine Primary hypercoagulable state (HCC) 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, old, speech/language deficit Expected: 09/21/2022 (Approximate), Expires: 07/28/2023 Work Phone: Comment on above: Expected: 09/21/2022 (Approximate), Expires: 07/28/2023 Start: 09-21-2022 End: 07-28-2023 Folate [Mass/volume] in Serum or Plasma FOLATE SERUM Lab Routine Primary hypercoagulable state (HCC) 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, old, speech/language deficit Expected: 09/21/2022 (Approximate), Expires: 07/28/2023 Work Phone: Comment on above: Expected: 09/21/2022 (Approximate), Expires: 07/28/2023 Start: 09-21-2022 End: 07-28-2023 Iron and Iron binding capacity panel - Serum or Plasma IRON + TIBC Lab Routine Primary hypercoagulable state (HCC) 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, old, speech/language deficit Expected: 09/21/2022 (Approximate), Expires: 07/28/2023 Work Phone: Comment on above: Expected: 09/21/2022 (Approximate), Expires: 07/28/2023 Start: 04-30-2022 DEPRESSION ASSESSMENT DEPRESSION ASS [facility] Start: 01-30-2022 End: 01-30-2023 Ferritin [Mass/volume] in Serum or Plasma FERRITIN BLD Lab Routine Anemia, unspecified type Expected: 01/30/2022, Expires: 01/30/2023 Work Phone: Comment on above: Expected: 01/30/2022 , Expires: 01/30/2023 Start: 01-30-2022 End: 01-30-2023 Iron and Iron binding capacity panel - Serum or Plasma IRON + TIBC Lab Routine Anemia, unspecified type Expected: 01/30/2022, Expires: 01/30/2023 Work Phone: Comment on above: Expected: 01/30/2022 , Expires: 01/30/2023 Start: 12-29-2021 Influenza vaccination [facility] Start: 12-29-2021 End: 12-29-2021 Patient encounter procedure 12/29/2021 Routine Perinatology [facility] Start: 04-30-2021 DEPRESSION ASSESSMENT DEPRESSION ASS [facility] Start: 02-01-2021 Adult depression screening assessment DEPRESSION SCREENING [facility] Start: 12-04-2020 Screening for malign ant neoplasm of cervix Cervical Cancer Screening [facility] Start: 2020 Diabetes screen Diabetes screen [facility] Start: 10-22-2015 HPV TESTING HPV TESTING [facility] Start: 10-22-2015 Screening for malign ant neoplasm of cervix [facility] Start: 2006 Screening for malign ant neoplasm of cervix Pap smear [facility] Start: 2004 Hepatitis B Vaccine (1 of 3 - 19+ 3-dose series) Hepatitis B Vaccine (1 of 3 - 19+ 3-dose series) [facility] Start: 10-22-2003 Anxiety Screening Anxiety Screening [facility] Start: 10-22-2003 Depression Screening Depression Scre ening [facility] Start: 10-22-2003 HEPATITIS C SCREENING HEPATITIS C SC REENING [facility] Start: 10-22-2003 Hepatitis C screening B ON [facility] Start: 10-22-2003 HIV SCREENING HIV SCREENING [facility] Start: 10-22-2003 HIV screening HIV Screening [facility] Start: 1997 Depression Screen Depression Screen [facility] Start: 1990 COVID-19 VACCINE (#1) COVID-19 VACCI NE (#1) [facility] Start: 1990 COVID-19 VACCINE (1) COVID-19 VACCIN E (1) [facility] Start: 1986 Varicella vaccine (1 of 2 - 2-dose childhood series) Varicella vaccine (1 of 2 - 2-dose childhood series) [facility] Start: 04-22-1986 COVID-19 Vaccine (#1) COVID-19 Vacci ne (#1) [facility] Start: 1985 HEPATITIS B (1 of 3 - 3-dose series) HEPATITIS B (1 of 3 - 3-dose series) [facility] Start: 1985 Hepatitis B Vaccine (1 of 3 - 3-dose series) Hepatitis B Vaccine (1 of 3 - 3-dose series) [facility] End: 11-21-2021 Alpha Fetoprotein, Maternal [facility] Work Phone: Comment on above: Once for 1 Occurrenc es starting 11/21/2021 until 11/21/2021 Bacteria identified in Urine by Culture Urine culture Microbiology Routine Missed menses Ordered: 04/04/2024 [facility] Comment on above: Ordered: 04/04/2024 End: 01-30-2023 CBC W Auto Differential panel - Blood CBC + DIFF Lab Routine Primary hypercoagulable state (HCC) CVA, old, 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) Every 2 months for 6 Occurrences starting 01/30/2022 until 01/30/2023 Work Phone: Comment on above: Every 2 months for 6 Occurrences starting 01/30/2022 until 01/30/2023 CBC W Auto Different ial panel - Blood CBC and differential Lab Routine Missed menses , unspecified gestational age Ordered: 04/04/2024 [facility] Comment on above: Ordered: 04/04/2024 End: 01-30-2023 Comprehensive metabolic 2000 panel - Serum or Plasma COMP METABOLIC PANEL Lab Routine Primary hypercoagulable state (HCC) CVA, old, 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) Every 2 months for 6 Occurrences starting 01/30/2022 until 01/30/2023 Work Phone: Comment on above: Every 2 months for 6 Occurrences starting 01/30/2022 until 01/30/2023 Hemoglobin A1c/Hemoglobin.total in Blood Hemoglobin A1c Lab Routine Missed menses , unspecified gestational age Ordered: 04/04/2024 [facility] Comment on above: Ordered: 04/04/2024 Hepatitis B virus surface Ag [Presence] in Serum or Plasma by Immunoassay Hepatitis B surface antigen Lab Routine Missed menses , unspecified gestational age Ordered: 04/04/2024 [facility] Comment on above: Ordered: 04/04/2024 Hepatitis C virus Ab [Presence] in Serum or Plasma by Immunoassay Hepatitis C antibody Lab Routine Missed menses , unspecified gestational age Ordered: 04/04/2024 [facility] Comment on above: Ordered: 04/04/2024 HIV-1/HIV-2 antigen/antibody combination immunoassay HIV-1 and HIV-2 antibodies Lab Routine Missed menses , unspecified gestational age Ordered: 04/04/2024 [facility] Comment on above: Ordered: 04/04/2024 Reagin Ab [Presence] in Serum by RPR RPR Lab Routine Missed menses , unspecified gestational age Ordered: 04/04/2024 [facility] Comment on above: Ordered: 04/04/2024 Rubella antibody, IgG Rubella an tibody, IgG Lab Routine Missed menses , unspecified gestational age Ordered: 04/04/2024 [facility] Comment on above: Ordered: 04/04/2024 Thyrotropin [Units/volume] in Serum or Plasma TSH Lab Routine Hypothyroidism (acquired) ([facility]) Ordered: 04/04/2024 [facility] Comment on above: Ordered: 04/04/2024 UA DIP, URINE (POC) UA DIP, URIN E (POC) Lab Routine Infective urethritis Ordered: 08/01/2021 Work Phone: Comment on above: Ordered: 08/01/2021 Vitamin D 1,25 dihydroxy Vitamin D 1,25 dihydroxy Lab Routine Low vitamin D level Ordered: 04/04/2024 [facility] Comment on above: Ordered: 04/04/2024 [facility] Immunizations Immunization Date Immunization Notes Care Provider Jamie alfonso 03-05-2018 influenza virus vaccine, unspecified formulation Salvador Calix MD Work Phone: [facility] 07-03-2014 tetanus toxoid, reduced diphtheria toxoid, and acellular pertussis vaccine, adsorbed Ma Sand Work Phone: [facility] NEGATED: Highlighted row has not occurred!02-15-2023 influenza virus vaccine, unspecified formulation Evans CASAS [facility] NEGATED: Highlighted row has not occurred!04-07-2020 influenza virus vaccine, unspecified formulation PERNELL LONGORIA [facility] Payers Date Payer Category Payer Medicaid [id number] 2020 Medicaid [employer] [id number] 2020-Present [phone] [address] [place] [address] Medicaid [id number] 2020 Medicaid [id number] [id number] 1985 Unknown [id number] 2.16.840.1.560650.3.579.2.356 1985 Unknown [id number] 2.16.840.1.650487.3.579.2.356 1985 Unknown [id number] 2.16.840.1.118196.3.579.2.175 1985 Unknown [id number] 2.16.840.1.649301.3.579.2.593 1985 Unknown [id number] 2.16.840.1.418704.3.579.2.593 1985 Unknown [id number] 2.16.840.1.837424.3.579.2.593 1985 Unknown [id number] 2.16.840.1.090575.3.579.2.593 1985 Unknown [id number] 2.16.840.1.306997.3.579.2.593 1985 Unknown [id number] 2.16.840.1.942473.3.579.2.593 1985 Unknown [id number] 2.16.840.1.847899.3.579.2.593 1985 Unknown [id number] 2.16.840.1.060837.3.579.2.593 1985 Unknown [id number] 2.16.840.1.845299.3.579.2.593 1985 Unknown [id number] 2.16.840.1.455536.3.579.2.593 1985 Unknown [id number] 2.16.840.1.948337.3.579.2.593 1985 Unknown [id number] 2.16.840.1.944417.3.579.2.593 1985 Unknown [id number] 2.16.840.1.396950.3.579.2.593 1985 Unknown [id number] 2.16.840.1.267550.3.579.2.593 1985 Unknown [id number] 2.16.840.1.830052.3.579.2.593 1985 Unknown [id number] 2.16840.1.700793.3.579.2.593 1985 Unknown [id number] 2.16840.1.560382.3.579.2.593 1985 Unknown [id number] 2.16840.1.261482.3.579.2.593 1985 Unknown [id number] 2.16840.1.577799.3.579.2.593 1985 Unknown [id number] 2.16840.1.776973.3.579.2.593 1985 Unknown [id number] 2.16840.1.433910.3.579.2.593 1985 Unknown [id number] 2.16840.1.226998.3.579.2.593 1985 Unknown [id number] 2.16.840.1.481051.3.579.2.593 1985 Unknown [id number] 2.16.840.1.930779.3.579.2.593 1985 Unknown [id number] 2.16.840.1.064397.3.579.2.593 1985 Unknown [id number] 2.16840.1.067003.3.579.2.593 1985 Unknown [id number] 2.16.840.1.514264.3.579.2.9 1985 Unknown [id number] 2.16.840.1.631766.3.579.2 1985 Unknown [id number] 2.16.840.1.972567.3.579.2 1985 Unknown [id number] 2.16.840.1.847432.3.579.2 1985 Unknown [id number] 2.16.840.1.273213.3.579.2 1985 Unknown [id number] 2.16.840.1.153403.3.579.2 1985 Unknown [id number] 2.16.840.1.303500.3.579.2 1985 Unknown [id number] 2.16840.1.124207.3.579.2 1985 Unknown [id number] 2.16840.1.668410.3.579.2 1985 Unknown [id number] 2.16.840.1.398056.3.579.2 1985 Unknown [id number] 2.16.840.1.199603.3.579.2 1985 Unknown [id number] 2.16.840.1.735595.3.579.2 1985 Unknown [id number] 2.16.840.1.274970.3.579.2 1985 Unknown [id number] 2.16.840.1.402958.3.579.2 1985 Unknown [id number] 2.16.840.1.419162.3.579.2 1985 Unknown [id number] 2.16.840.1.510065.3.579.2. 1985 Unknown [id number] 2.16.840.1.094631.3.579.2. 1985 Unknown [id number] 2.16.840.1.224897.3.579.2 1985 Unknown [id number] 2.16.840.1.397878.3.579.2. 1985 Unknown [id number] 2.16.840.1.848975.3.579.2 1985 Unknown [id number] 2.16.840.1.671103.3.579.2 1985 Unknown [id number] 2.16.840.1.313120.3.579.2 1985 Unknown [id number] 2.16.840.1.067715.3.579.2 1985 Unknown [id number] 2.16.840.1.963061.3.579.2 1985 Unknown [id number] 2.16.840.1.564882.3.579.2 1985 Unknown [id number] 2.16.840.1.513310.3.579.2 1985 Unknown [id number] 2.16.840.1.139306.3.579.2. 1985 Unknown [id number] 2.16.840.1.671856.3.579.2 1985 Unknown [id number] 2.16.840.1.957048.3.579.2. 1985 Unknown [id number] 2.16.840.1.645222.3.579.2 1985 Unknown [id number] 2.16.840.1.785036.3.579.2.727 1959 Self-pay 1959 Unknown [id number] 1959 Unknown [id number] .2.840.678677.1.13.239.2.7.3.6 12888.315 Unknown [id number] 2.16.840.1.678316.3.579.2.593 Social History Date Type Detail Facility Start: 09-10-2017 End: 02-19-2023 Tobacco smoking status NHIS Never smoked tobacco [facility] Start: 09-10-2017 End: 02-19-2023 Tobacco use and exposure Smokeless tobacco non-user [facility] Start: 08-01-2021 End: 07-27-2022 Alcohol intake Current non-drinker of alcohol (finding) [facility] Start: 1985 Sex Assigned At Not on file [facility] Start: 07-22-2021 End: 03-27-2022 Exposure to SARS-CoV-2 (event) Not sure [facility] Tobacco smoking status Never [facility] [employer] Start: 07-27-2022 End: 11-19-2023 Sex Assigned At Female [facility] [employer] Start: 11-21-2021 Alcohol intake Ex-drinker (finding) [employer] Phone: Start: 12-29-2016 History SDOH Alcohol Comment occasionally [employer] Phone: Start: 08-20-2021 [facility] Phone: Start: 07-27-2022 End: 11-19-2023 History of Social function [facility] Start: 04-04-2024 End: 05-06-2024 Alcoholic beverage intake Lifetime non-drinker (finding) [facility] Functional Status Date Assessment Result Facility 02-05-2024 Functional Status N/A [facility] 02-02-2024 Functional Status N/A [facility] 11-09-2023 Functional Status N/A [facility] 10-23-2023 Functional Status N/A [facility] 09-28-2023 Functional Status N/A [facility] 08-03-2023 Functional Status N/A [facility] 05-25-2023 Functional Status N/A [facility] 02-15-2023 Functional Status N/A [facility] 10-20-2022 Functional Status N/A [facility] Clinical Notes 08-01-2021 to 05-06-2024 Pamela Walter, CONCERT SINGER - 05/06/2024 1:50 PM Hardy Joseph, DEB - 04/04/2024 10:00 AM ESTTelephone Encounter - Naga Johnson RN - 02/28/2024 8:21 AM EDTPatient Instructions Note Date & Type Note Facility 05-06-2024 History of Presen t illness Narrative Reason for Appointment: Patient ID: Madhu Rendon is a 38 y.o. female who presents for Routine Visit Patient presents today for Return OB appointment. MEDICATIONS Current Outpatient Medications Medication Instructions levothyroxine (SYNTHROID) 25 mcg, Oral, Daily before breakfast metFORMIN XR (GLUCOPHAGE-XR) 500 mg, Oral, Every 24 hours Multiple Vitamin (Multi-Vitamin) tablet 1 tablet, Daily RT ALLERGIES Allergies Allergen Reactions Ciprofloxacin GI intolerance Ciprofloxacin-Fluocinolone Pf Other Reaction(s): Other: See Comments Dizziness, weakness sweating Lactose Other Reaction(s): GI Disturbance, GI Upset Diarrhea Diarrhea Lactose Intolerance (Gi) Other Reaction(s): Illness Octacosanol Other Reaction(s): Other (See Comments) Other Other seasonal PROBLEMS Active Ambulatory Problems Diagnosis Date Noted 32 [...] BMI 37.0-37.9, adult 11/15/2023 Cerebral infarction, unspecified (CMS/HCC) 05/16/2019 Cerebrovascular accident (CVA) due to stenosis of middle cerebral artery ([facility]) 02/22/2020 Cervicalgia 02/05/2019 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 Coagulation defect, unspecified ([facility]) 02/05/2019 Cold intolerance 11/15/2023 Deficiency of other [...] Less than 8 weeks gestation of 06/05/2019 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 02/05/2019 Migraine without aura and without status migrainosus, not intractable ([facility]) 09/12/2017 Morbid obesity ([facility]) 11/15/2023 Muscle fasciculation 08/19/2021 Nasal polyps 11/15/2023 [...] infections 01/16/2020 Pre-diabetes 11/15/2023 Primary hypercoagulable state ([facility]) 08/01/2022 Pruritus, unspecified 01/02/2020 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[facility]) 06/12/2023 Raised antibody titer 09/25/2017 Right lower quadrant pain 11/15/2023 Right otitis externa 11/15/2023 Salivary gland swelling 11/15/2023 Single live 01/15/2020 Snoring 11/15/2023 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) 12/30/2019 Suspected severe acute respiratory syndrome coronavirus 2 (SARS-CoV-2) infection 06/12/2023 SVT (supraventricular tachycardia) ([facility]) 08/26/2019 Syncope and collapse 06/03/2018 Other bacterial infections of unspecified site 06/27/2019 Thrombocytopenia, unspecified ([facility]) 11/20/2019 Hypoglycemia 06/12/2023 Unspecified condition associated with female genital organs and menstrual cycle 05/09/2019 Unspecified ovarian cyst, right side 02/06/2019 Urinary tract infection 10/16/2019 Referred otalgia of right ear 11/19/2023 LPRD (laryngopharyngeal reflux disease) 11/19/2023 Resolved Ambulatory Problems Diagnosis Date Noted No Resolved Ambulatory Problems Past Medical History: Diagnosis Date AMA (advanced maternal age) multigravida 35+ Anemia Antiphospholipid syndrome (CMS/HCC) Gestational diabetes Heartburn Hypothyroid ([facility]/HCC) Stroke ([facility]) HISTORY PAST MEDICAL HISTORY SOCIAL HISTORY Past Medical History: Diagnosis Date AMA (advanced maternal age) multigravida 35+ Anemia Antiphospholipid syndrome (CMS/HCC) Gestational diabetes Heartburn Hypothyroid ([facility]/HCC) Stroke ([facility]) Social History Tobacco Use Smoking status: Never Smokeless tobacco: Never Substance Use Topics Alcohol use: Never Drug use: Never FAMILY HISTORY Family History Problem Relation Name Age of Onset Other (Cerebrovascular Accident) Father Diabetes Father Diabetes Sister Mental illness Maternal Grandmother Other (Heart problems) Maternal Grandfather Diabetes Paternal Grandmother Cancer Paternal Grandmother Cancer Paternal Grandfather Diabetes Paternal Grandfather SURGICAL HISTORY Past Surgical History: Procedure Laterality Date BREAST BIOPSY 2013 LAPAROSCOPY DIAGNOSTIC / BIOPSY / ASPIRATION / LYSIS 02/02/2019 Right Ovarian incision and drainage of cyst WISDOM TOOTH EXTRACTION 2007 [place] teeth REVIEW OF SYSTEMS Review of Systems: Review of Systems Constitutional: Negative. HENT: Negative. Eyes: Negative. Respiratory: Negative. Cardiovascular: Negative. Gastrointestinal: Negative. Genitourinary: Negative. Musculoskeletal: Negative. Skin: Negative. Neurological: Negative. All other systems reviewed and are negative. Hematological: Negative. Endocrine: Negative. Allergic/Immunologic: Negative. OBJECTIVE Objective: Physical Exam Constitutional: Appearance: Normal appearance. She is well-developed. Cardiovascular: Rate and Rhythm: Normal rate and regular rhythm. Pulmonary: Effort: Pulmonary effort is normal. Breath sounds: Normal breath sounds. Abdominal: General: Bowel sounds are normal. There is no distension. Palpations: Abdomen is soft. Tenderness: There is no abdominal tenderness. There is no guarding or rebound. Musculoskeletal: General: No swelling. Normal range of motion. Right lower leg: No edema. Left lower leg: No edema. Neurological: Mental Status: She is alert and oriented to person, place, and time. Skin: General: Skin is warm and dry. Psychiatric: Mood and Affect: Mood normal. Behavior: Behavior normal. Vitals and nursing note reviewed. Exam conducted with a enamel drier present. Vitals: Estimated body mass index is 35.41 kg/m as calculated from the following: Height as of 11/19/23: 5' 6 . Weight as of this encounter: 219 lb 6.4 oz. BP: 120/80 Patient's last menstrual period was 01/29/2024. ASSESSMENT & PLAN ICD-10-CM 1. 14 weeks gestation of Z3A.14 POCT urinalysis dipstick manually resulted 2. Second trimester Z34.92 POCT urinalysis dipstick manually resulted New OB: Patient presents today for 1st time obstetrics appointment with provider. Patient is currently 14w0d . Patients history has been reviewed in great detail including any potential risks. heart beat absent and no movement seen with bedside monitor. Patient then sent to US to confirm no heartbeat. Patient notified of demise. Patient will be sent for cytotec on 05/10/24. 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 Coagulation defect, unspecified ([facility]) 02/05/2019 Cold intolerance 11/15/2023 Deficiency of other [...] Less than 8 weeks gestation of 06/05/2019 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 02/05/2019 Migraine without aura and without status migrainosus, not intractable ([facility]) 09/12/2017 Morbid obesity ([facility]) 11/15/2023 Muscle fasciculation 08/19/2021 Nasal polyps 11/15/2023 [...] infections 01/16/2020 Pre-diabetes 11/15/2023 Primary hypercoagulable state ([facility]) 08/01/2022 Pruritus, unspecified 01/02/2020 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[facility]) 06/12/2023 Raised antibody titer 09/25/2017 Right lower quadrant pain 11/15/2023 Right otitis externa 11/15/2023 Salivary gland swelling 11/15/2023 Single live 01/15/2020 Snoring 11/15/2023 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) 12/30/2019 Suspected severe acute respiratory syndrome coronavirus 2 (SARS-CoV-2) infection 06/12/2023 SVT (supraventricular tachycardia) ([facility]) 08/26/2019 Syncope and collapse 06/03/2018 Other bacterial infections of unspecified site 06/27/2019 Thrombocytopenia, unspecified ([facility]) 11/20/2019 Hypoglycemia 06/12/2023 Unspecified condition associated with female genital organs and menstrual cycle 05/09/2019 Unspecified ovarian cyst, right side 02/06/2019 Urinary tract infection 10/16/2019 Referred otalgia of right ear 11/19/2023 LPRD (laryngopharyngeal reflux disease) 11/19/2023 Resolved Ambulatory Problems Diagnosis Date Noted No Resolved Ambulatory Problems Past Medical History: Diagnosis Date AMA (advanced maternal age) multigravida 35+ Anemia Antiphospholipid syndrome ([facility]) Gestational diabetes Heartburn Hypothyroid ([facility]) Stroke ([facility]) Family History Problem Relation Name Age of [...] Surgical History: Procedure Laterality Date BREAST BIOPSY 2014 LAPAROSCOPY DIAGNOSTIC / BIOPSY / ASPIRATION / LYSIS 02/02/2019 Right Ovarian incision and drainage of cyst WISDOM TOOTH EXTRACTION 2007 [place] teeth Allergies Allergen Reactions Ciprofloxacin GI intolerance [...] or undercooked meat, and stay away from [facility]. Patient has also been advised to [...] Ariane Joseph LPN documented in this encounter [facility] 02-28-2024 Telephone encounter Note Pt aware and agreeable to plan of care. Pt denies any further questions, needs or concerns at this time. Appt verified for lab/follow up Naga Johnson RN [facility] 02-28-2024 Miscellaneous Notes Pt aware and agreeable to plan of care. Pt denies any further questions, needs or concerns at this time. Appt verified for lab/follow up Naga Johnson RN She can take the iron with prenatals. We should Johnathon labs as scheduled. Pt 4 weeks and inquiring if she should have Johnathon's lab work completed now or wait until scheduled appt. Pt last labs completed 01/02/24. Pt also would like to know if it is okay to take with iron? Fely: Please advise Naga Johnson RN documented in this encounter [facility] 02-27-2024 Telephone encounter Note She can take the iron with prenatals. We should Johnathon labs as scheduled. [facility] 02-27-2024 Telephone encounter Note Pt 4 weeks and inquiring if she should have Johnathon's lab work completed now or wait until scheduled appt. Pt last labs completed 01/02/24. Pt also would like to know if it is okay to take with iron? Fely: Please advise Naga Johnson RN [facility] 02-05-2024 Hospital Discharg e instructions Patient [...] condition. Follow these instructions at home: Take zklq-xlh-ckvcngs and prescription medicines only as told by [...] and water are not available, use hand emotional disabilities teacher. Avoid contact with people who have cold [...] it is easier to cough up. Take cqjv-dss-ufinhgx and prescription medicines only as told by [...] provider. Document Revised: 07/27/2022 Document Reviewed: 08/17/2021 [employer] Patient Education 2023 [employer]. Follow Up Care 02/04/2024 08:47:42 With:PRAVEEN RESENDEZ FAAFP, CHRIS Perez, PED Address: [address] [place] [id number] When:Within 3 Month(s) [facility] 02-05-2024 Note Patient Education Pulmonary [...] Follow these instructions at home: ? Take garm-wtg-jakiqna and prescription medicines only as told by [...] and water are not available, use hand emotional disabilities teacher. ? Avoid contact with people who have [...] is easier to cough up. ? Take qqct-geb-ecijbyl and (more content not included)... [facility] 02-02-2024 Hospital Discharg e instructions Follow Up Care 02/02/2024 11:19:56 With:Anni Bernstein MD, [facility] Address: [address] [place] [phone] When: only if needed [facility] 01-07-2024 Miscellaneous Notes No need for IV iron per CC'd chart from Dr. Calix. Attempt to call pt to notify. Left detailed message on, along with call back number on voicemail. Valeri Yan RN Dr Luna is requesting Triage to call Madhu with her FE results. Thank you documented in this encounter [facility] 01-07-2024 Telephone encounter Note No need for IV iron per CC'd chart from Dr. Calix. Attempt to call pt to notify. Left detailed message on, along with call back number on voicemail. Valeri Yan RN [facility] 01-02-[address] Luna is requesting Triage to call Madhu with her FE results. Thank you [facility] 01-02-2024 Instructions Nathaly Florence - 01/02/2024 2:08 PM EDT Triage to call iron results Continue Lovenox - patient prefers 40 mg (rather than rec 80mg) Encouraged her to reconsider Take B12 supplement in the form of a sublingual tablet RTC in 3 months Labs same day Vitamin D, TSH, Calcium with CMP documented in this encounter [facility] 01-02-2024 Nurse Note Patient states that [...] MRI but was negative. Serina Dawson MA [facility] 01-02-2024 Nurse Note Patient states that [...] Serina Dawson MA documented in this encounter [facility] 01-02-2024 History of Presen t illness Narrative Images from the original note were not included. NAME: Madhu Rendon CLINIC NO.: [id number] DATE OF SERVICE: January 02, 2024 ([facility]) Some elements in this clinic note that are critical to medical decision making have been carefully reviewed and included from a prior clinic note dated: June 15, 2023 ([facility]) Additional Clinicians involved in Madhu Rendon's care: Jorge Mcwilliams, Humaira Gaviria, Dr. Boothe CC: hypercoag state. ASSESSMENT: 38 year old woman presents with a prior history of CVA in 2016 and an antiphospholipid antibody that was identified much later in 2018. These were found in [place], [place]. I don't have access to these [...] a target-like rash shortly before presenting to [facility] in 2015 with headaches and was diagnosed [...] soon. When she had a stroke in [place], she had symptoms up to a month [...] and stayed on Lovenox Hgb 13.1 @ [facility] Recommended ER if persisting bleeding but she [...] and at age 69. Both lived in [facility] but she was adopted. She was not able to see ID in October and will be seeing Dr. Baugh next week. Also will have her see Dr. Hamlin for her clotting disorder and make any other recommendations to optimize her treatment. Updated Visit, October 08, 2020: Telephone only Received call from pt stating she was seen in [facility] ER for numbness in her chest, throat, and extremities, and sob which has been worsening over the last week. We arranged a telephone visit for her to review questions with me. Madhu Rendon is a 34 year old female seen for Hypercoagulable state and recent concerns and symptoms that required her to be seen at [facility] ER. She went to the ER with Gradual worsening of breathing after progressive tingling of fingers and legs. She currently remains very fatigued even though she is sleeping well. Now recalls that before her stroke she remembers having a bull's eye rash and was seen with severe headaches in [facility] was found to have a stroke in [...] a root canal and was sent to [facility] for MRI which was negative but non-contrasted. [...] goes back to January 2016 in [facility] where she had persisting headaches and slurred speech followed by lower extremity weakness. This took a few months to resolve and she is back to her normal state of being but some point in time during her her next she was seen by Dr. Humera Hyde in [place] as well and was found to have [...] which included preparing to see the patient, zhit-bc-zokf patient care, completing clinical documentation, performing a medically appropriate examination, counseling and educating the patient/family/caregiver, ordering medications, tests, or procedures, independently interpreting results (not separately reported), communicating results to the patient/family/caregiver, and care coordination (not separately reported). Salvador Calix MD, CPE [facility]ology [facility] On[facility] Provided at: [place], [place] Scribe Attestation: This note was scribed [...] under my direction. CC: MD Wilton Day, [address] [place] [address] Humaira Gaviria MD [address] [place] [id number] MD Cosmo Kingston MD Michael Blank, MD documented in this encounter [facility] 01-02-2024 Note HNO ID: [id number] Author: SALVADOR CALIX MD Service: ? Author Type: Physician Type: Progress Notes Filed: 01/04/2024 12:54 Note Text: NAME: Madhu Rendon CLINIC NO.: [id number] DATE OF SERVICE: January 02, 2024 ([facility]) [...] later in 2018. These were found in [place], [place]. I don't have access to these [...] a target-like rash shortly before presenting to [facility] in 2015 with headaches and was diagnosed [...] soon. When she had a stroke in [place], she had symptoms up to a month [...] and stayed on Lovenox Hgb 13.1 @ [facility] Recommended ER if persisting bleeding but she would prefer to stay on Lovenox for now. Updated Visit, July 27, 2022: Madhu returns today an (more content not included)... [facility] 12-17-2023 Telephone encounter Note Pt updated and will follow up with PCP. Denies further questions, needs or concerns at this time for our provider. Naga Johnson RN [facility] 12-17-2023 Miscellaneous Notes Pt updated and [...] IV Iron 11/29/23? documented in this encounter [facility] 12-17-2023 Telephone encounter Note No - sounds like she has some infectious process going on - would rec PCP. [facility] 12-17-2023 Telephone encounter Note Pt reports [...] possible delayed reaction to IV Iron 11/29/23? [facility] 11-29-2023 Note HNO ID: [id number] Author: BECKI GUTIERREZ RN Service: ? Author Type: Registered Nurse Type: Progress Notes Filed: 11/29/2023 16:28 Note Text: Y Y [facility] 11-29-2023 History of Presen t illness Narrative Y Y documented in this encounter [facility] 11-29-2023 Telephone encounter Note MARSHA Connell, treatment aware of changes. [facility] 11-29-2023 Miscellaneous Notes MARSHA Connell, treatment [...] to administer the venofer slower? What rate? ThanksRaissa RPh Called and discussed with pt. She is and cannot take Benadryl. She is reluctant to take Pepcid. Attempted to call retail, infusion pharmacy and [facility], no answer, to ask safety of pepcid in . Pharm/Fely: please advise Naga Johnson RN Hi Madhu - sometimes it depends on [...] different iron formulation. documented in this encounter [facility] 11-29-2023 Telephone encounter Note Spoke with pt. She will obtain Pepcid OTC from our retail pharmacy on arrival to take (1) 20 mg tablet. She is aware and agreeable to IV steroid for infusion as well. Naga Johnson RN [facility] 11-29-2023 Telephone encounter Note A one time dose of dexamethasone is safe when . I added 8mg to the plan for your review. Please adjust dose if necessary. Thanks, Raissa Aly RPh [facility] Work Phone: 11-29-2023 Telephone encounter Note Famotidine is safe when . Do we want to administer the venofer slower? What rate? Thanks, Raissa Aly RP [facility] 11-29-2023 Telephone encounter Note Called and discussed with pt. She is and cannot take Benadryl. She is reluctant to take Pepcid. Attempted to call retail, infusion pharmacy and [facility], no answer, to ask safety of pepcid in . Pharm/Fely: please advise Naga Johnson RN [facility] 11-29-2023 Telephone encounter Note Hi [...] have to choose a different iron formulation. [facility] 11-15-2023 Note HNO ID: [id number] Author: JUNE LOMBARDO RN Service: ? Author Type: Registered Nurse Type: Progress Notes Filed: 11/15/2023 16:30 Note Text: Pt reports having nausea and lightheadedness this morning. She has seen her pcp regarding these symptoms and is being worked up to figure out the cause. [facility] 11-15-2023 History of Presen t illness Narrative Pt reports having nausea and lightheadedness this morning. She has seen her pcp regarding these symptoms and is being worked up to figure out the cause. documented in this encounter [facility] 11-15-2023 Telephone encounter Note 1st report of treatment-Non oncology regimen (Venofer) Patient holds Medicaid coverage and there is no available FA at this time. [facility] 11-15-2023 Miscellaneous Notes 1st report of treatment-Non oncology regimen (Venofer) Patient holds Medicaid coverage and there is no available FA at this time. documented in this encounter [facility] 11-09-2023 Hospital Discharg e instructions Patient [...] your hypoglycemia. Where to find more information [place] [employer]: www.diabetes.org National [place] of Diabetes and Digestive and Kidney Diseases: [...] provider. Document Revised: 03/17/2021 Document Reviewed: 03/17/2021 [employer] Patient Education 2022 [employer]. 11/09/2023 15:56:06 Prediabetes Prediabetes Prediabetes is when [...] hard liquor (44 mL). General instructions Take wiga-rex-kclshnz and prescription medicines only as told by [...] is important. Where to find more information [place] [employer]: www.diabetes.org Academy of Nutrition and Dietetics: www.eatright.org [place] [employer]: www.heart.org Contact a health care [...] provider. Document Revised: 07/15/2020 Document Reviewed: 07/15/2020 [employer] Patient Education 2022 [employer]. 11/09/2023 15:56:02 Palpitations Palpitations Palpitations are feelings [...] your health care provider. General instructions Take ylan-oxc-rptjxot and prescription medicines only as told by [...] provider. Document Revised: 09/07/2021 Document Reviewed: 09/07/2021 [employer] Patient Education 2022 [employer]. 11/09/2023 15:55:58 Fatigue Fatigue If you have [...] Follow these instructions at home: Medicines Take rozy-fwv-xojqonb and prescription medicines only as told by [...] the National Suicide Prevention Lifeline at or 973. This is open 24 hours a day. Text the Crisis Text Line at 240805. Summary If you have fatigue, you feel [...] provider. Document Revised: 02/06/2022 Document Reviewed: 02/06/2022 Elsevier Patient Education 2022 [employer] Follow Up Care 11/08/2023 11:31:43 With:PRAVEEN RESENDEZ FAAFP, CHRIS Perez, PED Address: [address], [place] [address]- When: Unknown [facility] 11-09-2023 Note Patient Education Emergency [...] health care provider. General instructions ? Take qslj-rzx-uvvsead and prescription medicines only as told by [...] provider. Document Revised: 09/07/2021 Document Reviewed: 09/07/2021 [employer] Patient Education ? 2022 [employer] Endocrinology Preventing Hypoglycemia Hypoglycemia occurs when [...] hypoglycemia may not (more content not included)... [facility] 11-09-2023 Note HNO ID: [id number] Author: TAMIKO KRUEGER LSW Service: ? Author Type: Hardwood Finisher Type: Progress Notes Filed: 12/03/2023 16:01 Note Text: Patient appears on the [facility] First Time Treatment List for a non-oncology treatment. No psychosocial assessment is indicated. KRISTOPHER Huerta Goals of Care Advance Directives are not on file. SIGNATURE: MACRINA Huerta PATIENT NAME: Madhu Rendon DATE: December 03, 2023 TIME: 4:00 PM PAGER/CONTACT #: [facility] 11-09-2023 History of Presen t illness Narrative Patient appears on the [facility] Time Treatment List for a non-oncology treatment. No psychosocial assessment is indicated. KRISTOPHER Huerta documented in this encounter [facility] 11-06-2023 Telephone encounter Note Pt informed of PetroDE's message and denies any questions, needs or concerns at this time. She will call PCP for additional workup of palpitations, should the IV iron not help, or they worsen. Discussed reasons for immediate evaluation; chest pain, shortness of breath, lightheadedness, dizziness, etc. Appointments verified. Naga Johnson RN [facility] 11-06-2023 Miscellaneous Notes Pt informed of Fely's message and denies [...] MD Sent: 11/05/2023 11:33 AM EDT To: [facility] Triage Pool; [facility] Clerical Pool Perry Isidro - looks like you need Iron again. Dr. Middleton Cancel her virtual set for 11/05 and 11/19 - infuse 3 doses weekly iron and then see her in 8 weeks in person - labs same day. Thanks! documented in this encounter [facility] 11-05-2023 Telephone encounter Note Thanks Brit [...] get you feeling better. Best, Dr. Middleton [facility] 11-05-2023 Telephone encounter Note Patient has [...] is on a blood thinner. Harjit Haskins [facility] 11-05-2023 Telephone encounter Note Appointment tomorrow cancelled. Andres tried calling her this morning and was unable to get a hold of her. Will keep trying patient to schedule for Iron. Harjit Haskins [facility] 11-05-2023 Telephone encounter Note ----- Message from Naga Johnson RN sent at 11/05/2023 11:53 AM EDT ----- ----- Message ----- From: Salvador Calix MD Sent: 11/05/2023 11:33 AM EDT To: [facility] Triage Pool; [facility] Clerical Pool Perry Isidro - looks like you need Iron again. Dr. Middleton Cancel her virtual set for 11/05 and 11/19 - infuse 3 doses weekly iron and then see her in 8 weeks in person - labs same day. Thanks! [facility] 10-23-2023 Hospital Discharg e instructions Patient [...] specializes in ear, nose, and throat disorders (digital tech, or ENT) for more tests and treatment. [...] (rhinoplasty). Follow these instructions at home: Take xkwf-kfa-zyiuihe and prescription medicines only as told by [...] specializes in ear, nose, and throat disorders (digital tech, or ENT) for more tests and treatment. This information is not intended to replace advice given to you by your health care provider. Make sure you discuss any questions you have with your health care provider. Document Revised: 12/12/2021 Document Reviewed: 12/12/2021 [employer] Patient Education 2022 [employer]. 10/23/2023 17:12:52 Nasal Polyps Nasal Polyps Nasal [...] instructions at home: Medicines Take or use eaev-mxj-gufyies and prescription medicines only as told by [...] provider. Document Revised: 04/05/2022 Document Reviewed: 04/05/2022 [employer] Patient Education 2022 [employer]. 10/23/2023 17:12:52 Nasal Polypectomy Nasal Polypectomy Nasal [...] including vitamins, herbs, eye drops, creams, and nonc-klx-ivltgev medicines. Any problems you or family members [...] provider tells you to take them. Taking uapy-txj-ilsedzp medicines, vitamins, herbs, and supplements. General instructions [...] provider. Document Revised: 04/05/2022 Document Reviewed: 04/05/2022 [employer] Patient Education 2022 [employer] 10/23/2023 17:12:46 BMI for Adults BMI [...] numbers. This can be done either in [place] ([place] or metric measurements. Note that charts and online BMI calculators are available to help you find your BMI quickly and easily without having to do these calculations yourself. To calculate your BMI in [place] ([place] measurements: 1.Measure your weight in pounds [...] Centers for Disease Control and Prevention: www.cdc.gov [place] Heart Association: www.heart.org National Heart, Lung, and Blood Jarbidge: www.nhlbi.nih.gov Summary Body mass index (BMI) is a number that is calculated from a person's weight and height. BMI may help estimate how much of a person's weight is composed of fat. BMI can help identify those who may be at higher risk for certain medical problems. BMI can be measured using Montenegrin measurements or metric measurements. BMI charts are used to identify whether you are underweight, normal weight, overweight, or obese. This information is not intended to replace advice given to you by your health care provider. Make sure you discuss any questions you have with your health care provider. Document Revised: 01/07/2020 Document Reviewed: 11/14/2019 [employer] Patient Education 2022 [employer]. Follow Up Care 10/23/2023 08:49:41 With:Lourdes Urrutia Address: [address] [place] [address] [place] [address]- When: only if needed [facility] 09-28-2023 Hospital Discharg e instructions [...] Follow these instructions at home: Medicines Take kuyp-vuf-ktdrbqr and prescription medicines only as told by [...] Watch your condition for any changes. Take vllz-cue-wgiodqs and prescription medicines only as told by [...] provider. Document Revised: 06/04/2020 Document Reviewed: 08/25/2019 [employer] Patient Education 2022 [employer]. Follow Up Care 09/28/2023 18:22:59 With:Evans CASAS Address: [place] [address], [facility] [place] [address] Business (1) When:Within 3 Day(s) [facility] 09-28-2023 Hospital Discharg e instructions Patient [...] numbers. This can be done either in [place] ([place].S[place] or metric measurements. Note that charts and online BMI calculators are available to help you find your BMI quickly and easily without having to do these calculations yourself. To calculate your BMI in [place] ([place].S[place] measurements: 1.Measure your weight in pounds [...] Centers for Disease Control and Prevention: www.cdc.gov [place] Heart Association: www.heart.org National Heart, Lung, and Blood Jarbidge: www.nhlbi.nih.gov Summary Body mass index (BMI) is a number that is calculated from a person's weight and height. BMI may help estimate how much of a person's weight is composed of fat. BMI can help identify those who may be at higher risk for certain medical problems. BMI can be measured using Mont[place] measurements or metric measurements. BMI charts are used to identify whether you are underweight, normal weight, overweight, or obese. This information is not intended to replace advice given to you by your health care provider. Make sure you discuss any questions you have with your health care provider. Document Revised: 01/07/2020 Document Reviewed: 11/14/2019 [employer] Patient Education 2022 [employer]. 09/28/2023 18:24:42 Hypertension, Adult, Adgg-hv-Inbh Hypertension, Adult Hypertension is another name for [...] doctor. Keep all follow-up visits. Medicines Take xxjl-bfd-uqmmnfm and prescription medicines only as told by [...] provider. Document Revised: 02/02/2022 Document Reviewed: 02/02/2022 [employer] Patient Education 2022 [employer]. 09/28/2023 18:24:32 Abdominal Pain, Adult, Rovd-jo-Sglx Abdominal Pain, Adult Many things can cause belly (abdominal) pain. Most times, belly pain is not dangerous. Many cases of belly pain can be watched and treated at home. Sometimes, though, belly pain is serious. Your doctor will try to find the cause of your belly pain. Follow these instructions at home: Medicines Take wiwz-zgb-fafgjip and prescription medicines only as told by [...] your belly pain for any changes. Take vimw-why-eixepnw and prescription medicines only as told by [...] provider. Document Revised: 08/25/2019 Document Reviewed: 08/25/2019 [employer] Patient Education 2022 [employer]. Follow Up Care 09/28/2023 16:11:11 With:Emergency room Address: When: only if needed Comments:Patient was instructed to contact emergency room for any worsening abdominal pain, concerns, or complications. [facility] 09-28-2023 Evaluation + Plan note Extrac aida from: Title:ED Note Author:Fe QUINTEROS, Bijan Jimenez te:09/28/23 1. Abdominal pain (R10.9: Un specified [...] 12:40:00 PM Scheduled Provider:Evans CASAS DO, FAAFP Location:[facility] Appointment Type: Open Future Scheduled Tests Laboratory* HgbA1c 08/03/23 [facility]05-30-2024 Telephone encounter Note* Telephone Encounter - Harjit Haskins - 09/27/2023 4:38 PM EDT Attempt has been made x2 to reschedule patient. She did not have labs drawn. Harjit Haskins [facility]05-30-2024 Miscellaneous Notes* Telephone Encounter - Harjit Haskins - 09/27/2023 4:38 PM EDT Attempt has been made x2 to reschedule patient. She did not have labs drawn. Harjit Haskins documented in this encounterSumma Health [facility] NoteHNO ID: [id number] Author: SALVADOR CALIX MD Service: ? Author Type: Physician Type: Progress Notes Filed: 09/26/2023 09:13 Note Text: Did not have labs done to prep for this visit - reschedule. Salvador Calix [facility]05-29-2024 History of Present illness Narrative* Salvador Calix MD - 09/26/2023 9:11 AM EDT Did not have labs done to prep for this visit - reschedule. Salvador Calix MD documented in this encounterSumma Health [facility] Hospital Discharge instructions Patient Education 08/03/2023 [...] health care provider or diet and nutrition educator (dietitian). This may include: ?Eating fewer calories. [...] provider. Document Revised: 06/12/2021 Document Reviewed: 06/12/2021 [employer] Patient Education 2022 [employer]. Follow Up Care 02/15/2023 10:07:52 With:PRAVEEN RESENDEZ FAAFP, CHRIS Perez, PED Address: [address] [place], [place] [address], [facility] [place] [address]- When:Within 4 Month(s) [facility] 04-05-2024 Evaluation + Plan note Future Scheduled Tests Laboratory* HgbA1c 08/03/23 Radiology* CT Soft Tissue Neck w/ Contrast 11/12/23 [facility] 02-22-2024 Hospital Discharge instructions Patient [...] or if there is an kennedy for [employer]. Most glucose meters store a record of [...] mayhave. Where to find more information The [place] Diabetes Association: www.diabetes.org The Association of Diabetes [...] provider. Document Revised: 01/12/2021 Document Reviewed: 01/12/2021 [employer] Patient Education 2022 [employer] 06/21/2023 06:07:34 Preventing Iron Deficiency Anemia, Adult [...] iron. Foods high in vitamin C include: ?Kemp fruits, such as tai, oranges, and grapefruits. [...] iron supplement is right for you. Take bnpr-imf-peedqgu and prescription medicines only as told by your health care provider. Keep all follow-up visits. Where to find more information Learn more about preventing iron deficiency from: National Heart, Lung, and Blood Jarbidge: www.nhlbi.nih.gov [place] Society of Hematology: www.hematology.org Contact a health [...] provider. Document Revised: 05/24/2022 Document Reviewed: 05/24/2022 [employer] Patient Education 2022 [employer]. 06/21/2023 06:07:28 BMI for Adults BMI for [...] numbers. This can be done either in [place] ([place].S[place] or metric measurements. Note that charts and online BMI calculators are available to help you find your BMI quickly and easily without having to do these calculations yourself. To calculate your BMI in [place] ([place].S.) measurements: 1.Measure your weight in pounds [...] Centers for Disease Control and Prevention: www.cdc.gov [place] Heart Association: www.heart.org National Heart, Lung, and Blood Jarb[place]: www.nhlbi.nih.gov Summary Body mass index (BMI) is a number that is calculated from a person's weight and height. BMI may help estimate how much of a person's weight is composed of fat. BMI can help identify thosewho may be at higher risk for certain medical problems. BMI can be measured using Montenegrin measurements or metric measurements. BMI charts are used to identify whether you are underweight, normal weight, overweight, or obese. This information is not intended to replace advice given to you by your health care provider. Make sure you discuss any questions you have with your health care provider. Document Revised: 01/07/2020 Document Reviewed: 11/14/2019 [employer] Patient Education 2022 [employer]. Follow Up Care 06/19/2023 13:39:56 With:PRAVEEN RESENDEZ FAAFP, CHRIS Perez, PED Address: [address] [place] [address] [place] [address]- When: Unknown [facility] 02-20-2024 Miscellaneous Notes* Telephone Encounter - Naga Johnson RN - 06/19/2023 1:05 PM EST Pt called back and aware of Fely's message. She is agreeable to POC and denies further needs at thistime. She will call PCP to follow up on TSH Naga Johnson RN * Telephone Encounter - Naga Johnson RN - 06/19/2023 12:26 PM EST [employer] message sent Naga Johnson RN * Telephone [...] PM EST Triage to call lab results Harjit Haskins documented in this encounterSumma Health [facility] Instructions* Patient Instructions* Nathaly Carney - [...] TSH, Calcium with CMP documented in this encounterSumma Health W[facility]02-16-2024 Nurse Note* Serina Horton MA - [...] exercise. Serina Dawson MA documented in this encounterSumma Health W[facility] - [facility]02-16-2024 History of Present illness Narrative* Salvador Calix MD - 06/15/2023 2:00 PM EST Images from the original note were not included. NAME: Madhu Rendon CLINIC NO.: [id number] DATE OF SERVICE: June 15, 2023 (Levon) [...] later in 2018. These were found in [place], [place]. I don't have access to these [...] a target-like rash shortly before presenting to [facility] in 2015 with headaches and was diagnosed [...] Monge soon. When she hada stoke in [place], she had symptoms up to a month [...] and stayed on Lovenox Hgb 13.1 @ [facility] Recommended ER if persisting bleeding but she [...] and at age 69. Both lived in [facility] but she was adopted. She was not able to see ID in October and will be seeing Dr. Baugh next week. Also will have her see Dr. Hamlin for her clotting disorder and make any other recommendations to optimize her treatment. Updated Visit, October 08, 2020: Telephone only Received call from pt stating she was seen in [facility] ER for numbness in her chest, throat, and extremities, and sob which has been worsening over the last week. We arranged a telephone visit for her toreview questions with me. Madhu Rendon is a 34 year old female seen for Hypercoagulable state and recent concerns and symptoms that required her to be seen at [facility] ER. She went to the ER with Gradual worsening of breathing after progressive tingling of fingers and legs. She currently remains very fatigued even though she is sleeping well. Now recalls that before her stroke she remembers having a bull's eye rash and was seen with severe headaches in [place], [place] - was found to have a [...] a root canal and was sent to [facility] for MRI which was negative but non-contrasted. [...] goes back to January 2016 in [facility] where she had persisting headaches and slurred speech followed by lower extremity weakness. This took a few months to resolve and she is back to her normal state of being but some point in time during her her next she was seen by Dr. Humera Hyde in [place] as well and was found to have [...] which included preparing to see the patient, nkxd-um-zmdz patient care, completing clinical documentation, performing a medically appropriate examination, counseling and educating the patient/family/caregiver, ordering medications, tests, or p rocedures, independently interpreting results (not separately reported), communicating results to the patient/family/caregiver, and care coordination (not separately reported). Salvador Calix MD, CPE Hematology and Oncology Services Provided at: [facility], [place], [place] Scribe Attestation: This note was scribed [...] under my direction. CC: MD Wilton Day, [address] [place] [address] Humaira Gaviria MD [address] [place] [id number] MD Cosmo Kingston MD Michael Blank, MD documented in this encounterSumma Health W[facility]02-16-2024 NoteHNO ID: [id number] Author: SALVADOR CALIX MD Service: ? Author Type: Physician Type: Progress Notes Filed: 06/17/2023 09:02 Note Text: NAME: Madhu Rendon CLINIC NO.: [id number] DATE OF SERVICE: June 15, 2023 (Levon) [...] later in 2018. These were found in [place], [place]. I don't have access to these [...] a target-like rash shortly before presenting to [facility] in 2016 with headaches and was diagnosed [...] soon. When she had a stoke in [place], she had symptoms up to a month [...] and stayed on Lovenox Hgb 13.1 @ [facility] Recommended ER if persisting bleeding but she [...] helpful as well. We (more content not included)...[facility]02-12-2024 Miscellaneous Notes* Telephone Encounter - Ebony Redding Ma - 06/11/2023 10:43 AM EST Labs for appointment on 06/15. Ebony Redding Ma documented in this encounterSumma Health W[facility]02-12-2024 Miscellaneous Notes* Telephone Encounter - Nicol Avila - 06/11/2023 9:[address] Monge office spoke with Brinda. Patient is scheduled to see Dr Monge on 06/20. Nicol Salgado * Telephone Encounter - Niocl Avila - 06/07/2023 10:38 AM EST Called [...] since she was last seen by him. [facility] [address], [place], Please fax records Andres, Please follow up on this appt. Thank you documented in this encounterSumma Health W[facility]02-01-2024 History of Present illness Narrative* Salvador Calix MD - 05/31/2023 4:30 PM EST Images from the original note were not included. NAME: Madhu Rendon CLINIC NO.: [id number] DATE OF SERVICE: May 31, 2023 (Levon) Some elements in this clinic note that are critical to medical decision making have been carefully reviewed and included from a prior clinic note dated: March 19, 2023 (Levon) Additional Clinicians involved in Madhu Rendon's care: Drs. Herrmann, Jorge Monge, Humaira Gaviria, VIRTUAL VISIT PROGRESS NOTE This is a virtual visit using [employer] Video Visit. It required patient- provider interaction for the medical decision making as documented below. I have communicated my name and active licensure. The patient's identity and physical location wereverified at the time of this visit. Either the patient or their legal specialty sales representative has been informed of the risks and benefits of -- and alternatives to -- treatment through a remote evaluation andconsents to proceed with the evaluation remotely. CC: hypercoag state. ASSESSMENT: 37 year old woman 25 weeks presents with a prior history of CVA in 2016 and anantiphospholipid antibody that was identified much later in 2018. These were found in [place], [place]. I don't have access to these [...] a target-like rash shortly before presenting to [facility] in 2016 with headaches and was diagnosed [...] and stayed on Lovenox Hgb 13.1 @ [facility] Recommended ER if persisting bleeding but she [...] and at age 69. Both lived in [facility] but she was adopted. She was not able to see ID in October and will be seeing Dr. Baugh next week. Also will have her see Dr. Hamlin for her clotting disorder and make any other recommendations to optimize her treatment. Updated Visit, October 08, 2020: Telephone only Received call from pt stating she was seen in [facility] ER for numbness in her chest, throat, and extremities, and sob which has been worsening over the last week. We arranged a telephone visit for her chanw questions with me. Madhu Rendon is a 34 year old female seen for Hypercoagulable state and recent concerns and symptoms that required her to be seen at [facility] ER. She went to the ER with Gradual worsening of breathing after progressive tingling of fingers and legs. She currently remains very fatigued even though she is sleeping well. Now recalls that before her stroke she remembers having a bull's eye rash and was seen with severe headaches in [facility] was found to have a stroke in [...] a root canal and was sent to [facility] for MRI which was negative but non-contrasted. [...] goes back to January 2016 in [facility] where she had persisting headaches and slurred speech followed by lower extremity weakness. This took a few months to resolve and she is back to her normal state of being but some point in time during her her next she was seen by Dr. Humera Hyde in [place] as well and was found to have [...] ECOG PERFORMANCE STATUS: 0 PHYSICAL EXAMINATION: Vitals: [facility] 04/08/2019 There is no height or weight [...] CPE Hematology and Oncology Services Provided at: [place], [place] CC: MD Wilton Day, DO [address] [facility] [place] [address] Humaira Gaviria MD [address] [facility] [id number] MD Cosmo Kingston MD Michael Blank, MD documented in this encounterSumma Health Wadsworth [facility]02-01-2024 NoteHNO ID: [id number] Author: SALVADOR CALIX MD Service: ? Author Type: Physician Type: Progress Notes Filed: 06/05/2023 20:39 Note Text: NAME: Madhu Rendon CLINIC NO.: [id number] DATE OF SERVICE: May 31, 2023 (Levon) Some elements in this clinic note that are critical to medical decision making have been carefully reviewed and included from a prior clinic note dated: March 19, 2023 (Levon) Additional Clinicians involved in Madhu Rendon's care: Jorge Mcwilliams, Humaira Gaviria, Dr. Boothe VIRTUAL VISIT PROGRESS NOTE This is a virtual visit using [employer] Video Visit. It required patient-provider interaction for the medical decision making as documented below. I have communicated my name and active licensure. The patient's identity and physical location were verified at the time of this visit. Either the patient or their legal specialty sales representative has been informed of the risks and benefits of -- and alternatives to -- treatment through a remote evaluation and consents to proceed with the evaluation remotely. CC: hypercoag state. ASSESSMENT: 37 year old woman 25 weeks presents with a prior history of CVA in 2016 and an antiphospholipid antibody that was identified much later in 2018. These were found in [place], [place]. I don't have access to these [...] a target-like rash shortly before presenting to [facility] in 2016 with headaches and was diagnosed [...] and stayed on Lovenox Hgb 13.1 @ [facility] Recommended ER if persisting bleeding but she [...] she found Dr. Lujan (more content not included)...[facility] 05-31-2023 Instructions* Patient Instructions* Salvador Calix [...] TSH, Calcium with CMP documented in this encounterSumma Health Wadsworth - [facility]01-26-2024 Hospital Discharge instructions Patient Education 05/25/2023 [...] your ears completely after. General instructions Take nfca-rzq-cvnjxdc and prescription medicines only as told by [...] provider. Document Revised: 06/27/2021 Document Reviewed: 06/27/2021 [employer] Patient Education 2022 [employer]. 05/25/2023 12:02:06 Dyshidrotic Eczema Dyshidrotic Eczema Dyshidrotic [...] care provider who specializes in skin conditions (research physician) tohelp diagnose and treat this condition. How [...] locks in moisture. Medicines Take and apply tokk-nsu-sipqmgm and prescription medicines only as told by [...] provider. Document Revised: 01/24/2021 Document Reviewed: 01/24/2021 [employer] Patient Education 2022 [employer]. 05/25/2023 12:02:02 Allergies, Adult, Vyez-tp-Udsm Allergies, Adult An allergy means that your [...] instructions at home: Medicines Take or apply zxwm-hao-hrsohjp and prescription medicines only as told by [...] to the hospital. Summary Take or apply hvod-jft-ytsmwdx and prescription medicines only as told by [...] provider. Document Revised: 02/25/2020 Document Reviewed: 02/25/2020 [employer] Patient Education 2022 [employer]. Follow Up Care 05/21/2023 12:21:27 With:PRAVEEN RESENDEZ FAAFP, Evans Tony, CHRIS, PED Address: [place] [address], [facility] [place] [address]- When:Within 2 Month(s) [facility] 11-20-2023 History of Present illness Narrative* Salvador Calix MD - 03/19/2023 4:45 PM EST Images from the original note were not included. NAME: Madhu Rendon CLINIC NO.: [id number] DATE OF SERVICE: March 19, 2023 (Levon) [...] visit. Either the patient or their legal specialty sales representative has been informed of the risks and benefits of -- and alternatives to -- treatment through a remote evaluation andconsents to proceed with the evaluation remotely. CC: hypercoag state. ASSESSMENT: 37 year old woman 25 weeks presents with a prior history of CVA in 2016 and anantiphospholipid antibody that was identified much later in 2018. These were found in [place], [place]. I don't have access to these [...] a target-like rash shortly before presenting to [facility] in 2016 with headaches and was diagnosed [...] and stayed on Lovenox Hgb 13.1 @ [facility] Recommended ER if persisting bleeding but she [...] and at age 69. Both lived in [facility] but she was adopted. She was not able to see ID in October and will be seeing Dr. Baugh next week. Also will have her see Dr. Hamlin for her clotting disorder and make any other recommendations to optimize her treatment. Updated Visit, October 08, 2020: Telephone only Received call from pt stating she was seen in [facility] ER for numbness in her chest, throat, and extremities, and sob which has been worsening over the last week. We arranged a telephone visit for her chanw questions with me. Madhu Rendon is a 34 year old female seen for Hypercoagulable state and recent concerns and symptoms that required her to be seen at [facility] ER. She went to the ER with Gradual worsening of breathing after progressive tingling of fingers and legs. She currently remains very fatigued even though she is sleeping well. Now recalls that before her stroke she remembers having a bull's eye rash and was seen with severe headaches in [place], [place] - was found to have a [...] a root canal and was sent to [facility] for MRI which was negative but non-contrasted. [...] her to discuss her risk with Dr. Hrermann. She will need to be on lovenox [...] goes back to January 2016 in [facility] where she had persisting headaches and slurred speech followed by lower extremity weakness. This took a few months to resolve and she is back to her normal state of being but some point in time during her her next she was seen by Dr. Humera Hyde in [place] as well and was found to have [...] CPE Hematology and Oncology Services Provided at: [place], [place] CC: MD Wilton Day, [address] [place] [address] Humaira Gaviria MD [address] [place] [id number] MD Cosmo Kingston MD Michael Blank, MD documented in this encounterSumma Health [facility]11-20-2023 NoteHNO ID: [id number] Author: Salvador Calix MD Service: ? Author Type: Physician Type: Progress Notes Filed: 03/20/2023 10:20 AM Note Text: NAME: Madhu Rendon CLINIC NO.: [id number] DATE OF SERVICE: March 19, 2023 (Levon) Some elements in this clinic note that are critical to medical decision making have been carefully reviewed and included from a prior clinic note dated: September 28, 2022 (Levon) Additional Clinicians involved in Madhu Rendon's care: Jorge Mcwilliams, Humaira Gaviria, Dr. oBothe VIRTUAL VISIT PROGRESS NOTE This is a virtual visit using Audio Visit Only. It required patient-provider interaction for the medical decision making as documented below. I have communicated my name and active licensure. The patient's identity and physical location were verified at the time of this visit. Either the patient or their legal specialty sales representative has been informed of the risks and benefits of -- and alternatives to -- treatment through a remote evaluation and consents to proceed with the evaluation remotely. CC: hypercoag state. ASSESSMENT: 37 year old woman 25 weeks presents with a prior history of CVA in 2016 and an antiphospholipid antibody that was identified much later in 2018. These were found in [place], [place]. I don't have access to these [...] a target-like rash shortly before presenting to [facility] in 2016 with headaches and was diagnosed [...] and stayed on Lovenox Hgb 13.1 @ [facility] Recommended ER if persisting bleeding but she [...] is otherwise getting along (more content not included)...[facility]11-20-2023 Instructions* Patient Instructions* Salvador Calix MD - 03/19/2023 4:44 PM EST Continue Lovenox - patient prefers 40 mg (rather than rec 80mg) Take B12 supplement in the form of a sublingual tablet. Take Vitamin D3 5000 international unit(s) daily Check labs in 8 weeks Phone / Virtual call after documented in this encounterSumma Health Wadsworth [facility]10-19-2023 Hospital Discharge instructions Patient Education 02/15/2023 10:13:08 Ear Drops, Adult, Jeox-uy-Vyqn Ear Drops, Adult Your doctor has found [...] cannot use soap and water, use hand emotional disabilities teacher. 2.Make sure your ears are clean and [...] you cannot use soapand water, use hand emotional disabilities teacher. Follow these instructions at home: Use the [...] provider. Document Revised: 02/11/2020 Document Reviewed: 02/11/2020 [employer] Patient Education 2022 [employer]. 02/15/2023 10:13:05 Otitis Externa, Edgc-iu-Nflb Otitis Externa Otitis externa is an infection [...] if you start to feel better. Take npek-uov-ljsjpns and prescription medicines only as told by [...] provider. Document Revised: 06/29/2021 Document Reviewed: 06/29/2021 [employer] Patient Education 2022 [employer] Follow Up Care 02/14/2023 12:28:12 With:PRAVEEN RESENDEZ FAAFP, CHRIS Perez, PED Address: [address] [place] [address] [place] [address]- When:Within 2 Month(s) [facility] 08-25-2023 Hospital Discharge instructions Patient [...] including vitamins, herbs, eye drops, creams, and wfcc-yxy-hbpypqv medicines. ?Whether you are or may be [...] provider. Document Revised: 12/28/2021 Document Reviewed: 11/19/2020 [employer] Patient Education 2022 [employer]. 12/22/2022 15:19:23 Fatigue Fatigue If you have [...] Follow these instructions at home: Medicines Take jzao-nug-ktthruw and prescription medicines only as told by [...] the National Suicide Prevention Lifeline at or 281. This is open 24 hours a day. Text the Crisis Text Line at 321884. Summary If you have fatigue, you feel [...] provider. Document Revised: 02/06/2022 Document Reviewed: 02/06/2022 [employer] Patient Education 2022 [employer]. Follow Up Care 12/22/2022 10:22:02 With:Lourdes Urrutia Address: [address] [place] [address], [address] [place] [id number]- When: only if needed [facility] 08-25-2023 Instructions* Patient Instructions* Salvador Calix MD - 12/22/2022 10:13 AM EDT Continue Lovenox - patient prefers 40 mg (rather than rec 80mg) Take B12 supplement in the form of a sublingual tablet. Take Vitamin D3 5000 international unit(s) daily Check labs in 8 weeks Phone / Virtual call after documented in this encounterSumma Health Wadsworth [facility] Center08-25-2023 History of Present illness Narrative* Salvador Calix MD - 12/22/2022 9:55 AM EDT Images from the original note were not included. Salvador Calix MD NAME: Madhu Rendon CLINIC NO.: [id number] DATE OF SERVICE: December 22, 2022 (Levon) [...] visit. Either the patient or their legal specialty sales representative has been informed of the risks and benefits of -- and alternatives to -- treatment through a remote evaluation andconsents to proceed with the evaluation remotely. CC: hypercoag state. ASSESSMENT: 37 year old woman with a prior history of CVA in 2016 and an antiphospholipid antibody that was identified much later in 2018. These were found in [place], [place]. I don't have access to these [...] a target-like rash shortly before presenting to [facility] in 2015 with headaches and was diagnosed [...] and stayed on Lovenox Hgb 13.1 @ [facility] Recommended ER if persisting bleeding but she [...] and at age 69. Both lived in [facility] but she was adopted. She was not able to see ID in October and will be seeing Dr. Baugh next week. Also will have her see Dr. Hamlin for her clotting disorder and make any other recommendations to optimize her treatment. Updated Visit, October 08, 2020: Telephone only Received call from pt stating she was seen in [facility] ER for numbness in her chest, throat, and extremities, and sob which has been worsening over the last week. We arranged a telephone visit for her toreview questions with me. Madhu Rendon is a 34 year old female seen for Hypercoagulable state and recent concerns and symptoms that required her to be seen at [facility]. She went to the ER with Gradual worsening of breathing after progressive tingling of fingers and legs. She currently remains very fatigued even though she is sleeping well. Now recalls that before her stroke she remembers having a bull's eye rash and was seen with severe headaches in [facility] was found to have a stroke in [...] a root canal and was sent to [facility] for MRI which was negative but non-contrasted. [...] goes back to January 2016 in [facility] where she had persisting headaches and slurred speech followed by lower extremity weakness. This took a few months to resolve and she is back to her normal state of being but some point in time during her her next she was seen by Dr. Humera Hyde in [place] as well and was found to have [...] CPE Hematology and Oncology Services Provided at: [place], [place] CC: MD Wilton Day, [address] [place] [address] Humaira Gaviria MD [address] [place] [address] MD Cosmo Kingston MD Michael Blank, MD documented in this encounterSumma Health Wadsworth [facility]08-16-2023 Miscellaneous Notes* Telephone Encounter - Harjit [...] later time. Harjit Haskins documented in this encounterSumma Health Wadsworth [facility]06-23-2023 Hospital Discharge instructions Patient Education 10/20/2022 [...] health care provider or diet and nutrition educator (dietitian). This may include: ?Eating fewer calories. [...] provider. Document Revised: 06/12/2021 Document Reviewed: 06/12/2021 [employer] Patient Education 2022 [employer]. 10/20/2022 10:37:18 Preventing Type 2 Diabetes Mellitus [...] a registered dietitian. This diet and nutrition educator can help you make a healthy eating plan and help you understand portion sizes and food labels. Where to find support Ask your health care provider to recommend a registered dietitian, a certified diabetes care and industrial technology education teacher, or a weight loss program. Look for local or online weight loss groups. Join a gym, fitness club, or outdoor activity group, such as a walking club. Where to find more information For help and guidance and to learn more about diabetes and diabetes prevention, visit: [place] Diabetes Association (ADA): www.diabetes.org National [place] of Diabetes and Digestive and Kidney Diseases: [...] provider. Document Revised: 07/11/2021 Document Reviewed: 07/11/2021 [employer] Patient Education 2022 [employer]. 10/20/2022 10:37:17 Preventing Hypoglycemia Preventing Hypoglycemia Hypoglycemia [...] your hypoglycemia. Where to find more information [place] Diabetes Association: www.diabetes.org National [place] of Diabetes and Digestive and Kidney Diseases: [...] provider. Document Revised: 03/17/2021 Document Reviewed: 03/17/2021 [employer] Patient Education 2022 [employer] 10/20/2022 10:37:16 Gestational Diabetes Mellitus, Diagnosis, Fiwx-lg-Nsvg Gestational Diabetes Mellitus, Diagnosis Gestational diabetes mellitus [...] follow-up visits. Where to find more information [place] Diabetes Association (ADA): diabetes.org Association of Diabetes Care & Education Specialists (ADCES): diabeteseducator.org Centers for Disease Control and Prevention (CDC): cdc.gov [place] Association: americanpregnancy.org U.S. Department of Agriculture MyPlate: [...] away. Call your local emergency services (911 inthe U.S.). Do not wait to see if [...] provider. Document Revised: 09/20/2020 Document Reviewed: 09/20/2020 [employer] Patient Education 2022 [employer]. Follow Up Care 09/19/2022 14:47:09 With:PRAVEEN RESENDEZ FAAFP, Evans Tony, CHRIS, PED Address: [address] [place] [address] [place] [phone] When:Within 3 Month(s) [facility] 06-01-2023 History of Present illness Narrative* Salvador Calix MD - 09/28/2022 5:00 PM EDT Images from the original note were not included. Salvador Calix MD NAME: Madhu Rendon CLINIC NO.: [id number] DATE OF SERVICE: September 28, 2022 (Levon) Some elements in this clinic note that are critical to medical decision making have been carefully reviewed and included from a prior clinic note dated: July 27, 2022 (Levon) Additional Clinicians involved in [...] visit. Either the patient or their legal specialty sales representative has been informed of the risks and benefits of -- and alternatives to -- treatment through a remote evaluation andconsents to proceed with the evaluation remotely. CC: hypercoag state. ASSESSMENT: 36 year old woman 25 weeks presents with a prior history of CVA in 2016 and anantiphospholipid antibody that was identified much later in 2018. These were found in [place], [place]. I don't have access to these [...] a target-like rash shortly before presenting to [facility] in 2016 with headaches and was diagnosed [...] and stayed on Lovenox Hgb 13.1 @ [facility] Recommended ER if persisting bleeding but she [...] and at age 69. Both lived in [facility] but she was adopted. She was not able to see ID in October and will be seeing Dr. Baugh next week. Also will have her see Dr. Hamlin for her clotting disorder and make any other recommendations to optimize her treatment. Updated Visit, October 08, 2020: Telephone only Received call from pt stating she was seen in [facility] ER for numbness in her chest, throat, and extremities, and sob which has been worsening over the last week. We arranged a telephone visit for her chanw questions with me. Madhu Rendon is a 34 year old female seen for Hypercoagulable state and recent concerns and symptoms that required her to be seen at [facility] ER. She went to the ER with Gradual worsening of breathing after progressive tingling of fingers and legs. She currently remains very fatigued even though she is sleeping well. Now recalls that before her stroke she remembers having a bull's eye rash and was seen with severe headaches in [facility] was found to have a stroke in [...] a root canal and was sent to [facility] for MRI which was negative but non-contrasted. [...] goes back to January 2016 in [facility] where she had persisting headaches and slurred speech followed by lower extremity weakness. This took a few months to resolve and she is back to her normal state of being but some point in time during her her next she was seen by Dr. Humera Hyde in [place] as well and was found to have [...] CPE Hematology and Oncology Services Provided at: [place], [place] CC: MD Wilton Day, DO [address] [place] [address] Humaira Gaviria MD [address] [facility] [address] MD Cosmo Kingston MD Michael Blank, MD documented in this encounterSumma Health W[facility]05-24-2023 Miscellaneous Notes* Telephone Encounter - Cheri Acharya Sec - 09/20/2022 7:06 AM EDT Cxed appt * Telephone Encounter - Valeri Yan RN - 09/19/2022 3:29 PM EDT Patient would like to have labs drawn at [facility]. Called [facility] lab to get fax number. Lab orders faxed to [phone] Valeri Yan RN PSS: Can you cancel lab appointment for 09/21/22 here. Thanks. Valeri Yan RN documented in this encounterSumma Health Wad[facility]04-04-2023 Instructions* Patient Instructions* Salvador Calix MD - 08/01/2022 10:56 AM EDT Continue Lovenox - patient prefers 40 mg (rather than rec 80mg) 8 weeks - labs Phone / Virtual call after documented in this encounterSumma Health Wadsworth [facility]03-30-2023 History of Present illness Narrative* Salvador Calix MD - 07/27/2022 1:18 PM EDT NAME: Madhu Rendon CLINIC NO.: [id number] DATE OF SERVICE: July 27, 2022 (Levon) Some elements in this clinic note that are critical to medical decision making have been carefully reviewed and included from a prior clinic note dated: March 27, 2022 (Levon) Additional Clinicians involved in Madhu Rendon's care: Drs. MontezJorge roche, Humaira Gaviria, CC: hypercoag state. ASSESSMENT: 36 year old woman 25 weeks presents with a prior history of CVA in 2016 and anantiphospholipid antibody that was identified much later in 2018. These were found in [place], [place]. I don't have access to these [...] a target-like rash shortly before presenting to [facility] in 2016 with headaches and was diagnosed [...] and at age 69. Both lived in [facility] but she was adopted. She was not able to see ID in October and will be seeing Dr. Baugh next week. Also will have her see Dr. Hamlin for her clotting disorder and make any other recommendations to optimize her treatment. Updated Visit, October 08, 2020: Telephone only Received call from pt stating she was seen in [facility] ER for numbness in her chest, throat, and extremities, and sob which has been worsening over the last week. We arranged a telephone visit for her franci questions with me. Madhu Rendon is a 34 year old female seen for Hypercoagulable state and recent concerns and symptoms that required her to be seen at [facility]. She went to the ER with Gradual worsening of breathing after progressive tingling of fingers and legs. She currently remains very fatigued even though she is sleeping well. Now recalls that before her stroke she remembers having a bull's eye rash and was seen with severe headaches in [facility] was found to have a stroke in [...] a root canal and was sent to [facility] for MRI which was negative but non-contrasted. [...] goes back to January 2016 in [facility] where she had persisting headaches and slurred speech followed by lower extremity weakness. This took a few months to resolve and she is back to her normal state of being but some point in time during her her next she was seen by Dr. Humera Hyde in [place] as well and was found to have [...] which included preparing to see the patient, syyh-px-pgnb patient care, completing clinical documentation, obtaining and/or reviewing separately obtained history, performing a medically appropriate examination, counseling and educating the pat ient/family/caregiver, ordering medications, tests, or procedures, independently interpreting results (not separately reported), and care coordination (not separately reported). Salvador Calix MD, CPE Hematology and Oncology Services Provided at: [place], [place] CC: MD Wilton Day, [address] [place] [address] Humaira Gaviria MD [address] [place] [id number] MD Cosmo Kingston MD Michael Blank, MD documented in this encounterSumma Health Wad[facility]12-07-2022 History of Present illness Narrative* June [...] to standard infusion rate. documented in this encounterSumma Health Wadsworth [facility] Center12-06-2022 Miscellaneous Notes* Telephone Encounter - Marleen Ramirez Sec - 04/04/2022 1:40 PM EST Spoke with Madhu on the phone and we were able to get her scheduled for her weekly venofer x 4 starting on 04-05. Patient then wants appts due to her OB weekly appts on 's * Telephone Encounter - Meme Gonzalez RN - 04/04/2022 1:34 PM EST Received call from pt with multiple questions regarding her upcoming IV iron appt. All questions answered. Pt transferred to lead front end developer at her request so she can reschedule dates of IV iron d/t otherappts. FELY: Pt would like to have Venofer ordered and not get Monoferric even if approved. Please place orders if agreeable. Meme Gonzalez RN documented in this encounterSumma Health Wadsworth [facility] Center12-01-2022 Miscellaneous Notes* Telephone Encounter - Harjit [...] were not included. Salvador Calix MD [facility] Triage Pool; [facility] Clerical Pool She needs iron MUNIRA - if monoferric isn't approved, lets get her in weekly for Venna for. * Telephone Encounter - Harjit Haskins - 03/27/2022 2:57 PM EST 2. Consider IV iron a. Triage nurse to please call iron results when available this week documented in this encounterSumma Health Wadsworth [facility] Center11-28-2022 Instructions* Patient Instructions* Salvador Calix MD - 03/27/2022 2:51 PM EST Continue Lovenox - patient prefers 40 mg (rather than rec 80mg) Consider IV iron Triage nurse to please call iron results when available this week Will recheck antiphospholipid antibodies as ordered and every 6 months. RTC in 8 weeks - labs same day. documented in this encounterSumma Health Wad[facility] Center11-28-2022 History of Present illness Narrative* Salvador Calix MD - 03/27/2022 2:15 PM EST Images from the original note were not included. NAME: Madhu Rendon CLINIC NO.: [id number] DATE OF SERVICE: March 27, 2022 (radhaelaina) Some elements in this clinic note that [...] later in 2018. These were found in [place], [place]. I don't have access to these [...] a target-like rash shortly before presenting to [facility] in 2016 with headaches and was diagnosed [...] and at age 69. Both lived in [place], [place] - but she was adopted. She was not able to see ID in October and will be seeing Dr. Baugh next week. Also will have her see Dr. Hamlin for her clotting disorder and make any other recommendations to optimize her treatment. Updated Visit, October 08, 2020: Telephone only Received call from pt stating she was seen in [facility] ER for numbness in her chest, throat, and extremities, and sob which has been worsening over the last week. We arranged a telephone visit for her toreview questions with me. Madhu Rendon is a 34 year old female seen for Hypercoagulable state and recent concerns and symptoms that required her to be seen at [facility]. She went to the ER with Gradual worsening of breathing after progressive tingling of fingers and legs. She currently remains very fatigued even though she is sleeping well. Now recalls that before her stroke she remembers having a bull's eye rash and was seen with severe headaches in [place], [place] - was found to have a [...] a root canal and was sent to [facility] for MRI which was negative but non-contrasted. [...] goes back to January 2016 in [facility] where she had persisting headaches and slurred speech followed by lower extremity weakness. This took a few months to resolve and she is back to her normal state of being but some point in time during her her next she was seen by Dr. Humera Hyde in [place] as well and was found to have [...] which included preparing to see the patient, wijy-iq-mtah patient care, completing clinical documentation, obtaining and/or reviewing separately obtained history, performing a medically appropriate examination, counseling and educating the pat ient/family/caregiver, ordering medications, tests, or procedures, independently interpreting results (not separately reported), and care coordination (not separately reported). Salvador Calix MD, CPE Hematology and Oncology Services Provided at: [place], [place] CC: MD Wilton Day, [address] [place] [id number] Humaira Gaviria MD [address] [place] [id number] MD oCsmo Kingston MD Michael Blank, MD documented in this encounterSumma Health W[facility]10-03-2022 Instructions* Patient Instructions* Salvador Calix MD - 01/30/2022 12:[address] Hamlin's expertise and will prescribe Lovenox - patient prefers 40 mg (rather than rec 80mg) Will recheck antiphospholipid antibodies as ordered and every 6 months. RTC in 8 weeks - labs same day. documented in this encounterSumma Health Wadsworth [facility] Center10-03-2022 History of Present illness Narrative* Salvador Calix MD - 01/30/2022 11:59 AM EDT Images from the original note were not included. NAME: Madhu Rendon CLINIC NO.: [id number] DATE OF SERVICE: January 30, 2022 Some [...] later in 2018. These were found in [place], [place]. I don't have access to these [...] a target-like rash shortly before presenting to [facility] in 2016 with headaches and was diagnosed [...] and at age 69. Both lived in [facility] but she was adopted. She was not able to see ID in October and will be seeing Dr. Baugh next week. Also will have her see Dr. Hamlin for her clotting disorder and make any other recommendations to optimize her treatment. Updated Visit, October 08, 2020: Telephone only Received call from pt stating she was seen in [facility] for numbness in her chest, throat, and extremities, and sob which has been worsening over the last week. We arranged a telephone visit for her toreview questions with me. Madhu Rendon is a 34 year old female seen for Hypercoagulable state and recent concerns and symptoms that required her to be seen at [facility] ER. She went to the ER with Gradual worsening of breathing after progressive tingling of fingers and legs. She currently remains very fatigued even though she is sleeping well. Now recalls that before her stroke she remembers having a bull's eye rash and was seen with severe headaches in [facility] was found to have a stroke in [...] a root canal and was sent to [facility] for MRI which was negative but non-contrasted. [...] goes back to January 2016 in [facility] where she had persisting headaches and slurred speech followed by lower extremity weakness. This took a few months to resolve and she is back to her normal state of being but some point in time during her her next she was seen by Dr. Humera Hyde in [place] as well and was found to have [...] which included preparing to see the patient, isyw-bq-lvjj patient care, completing clinical documentation, obtaining and/or reviewing separately obtained history, performing a medically appropriate examination, counseling and educating the pat ient/family/caregiver, and ordering medications, tests, or procedures. Salvador Calix MD, CPE [facility] [place], [place] CC: MD Wilton Day, DO [address] [place] [address] Humaira Gaviria MD [address] [place] [id number] MD Cosmo Kingston MD Michael Blank, MD documented in this encounterSumma Health Wadsworth [facility] Center10-03-2022 Nurse Note* Sernia Dawson MA - 01/30/2022 11:55 AM EDT Patient states she may be diagnosed with gestational diabetes, she was from 215 to 52 a couple hours later after eating wheat cereal. She sees OB tomorrow. Serina Dawson MA documented in this encounterSumma Health Wadsworth [facility] Center09-02-2022 Miscellaneous Notes* Telephone Encounter - Tonja Pope RN - 12/30/2021 10:15 AM EDT Call received from Madhu requesting refill of Lovenox 40 mg to be sent to [facility] in [place]. FELY: Please review and approve if you agree. Tonja Chery RN documented in this encounterSumma Health Wadsworth - [facility] Center06-13-2022 Miscellaneous Notes* Telephone Encounter - Meme Easton RN - 10/10/2021 12:15 PM EDT Received call from pt requesting refill of Lovenox 40 mg to be sent to [facility] in [place]. FELY: Pt also states she had one episode of blood in her stool which was dripping blood which concerned her. She is not ready to move to 80 mg of Lovenox at this time. Order pending. Please review and sign if agreeable. Meme Easton RN documented in this encounterSumma Health Wadsworth [facility] Center05-10-2022 Miscellaneous Notes* Telephone Encounter - Salvador [...] agreeable. Meme Easton RN documented in this encounterSumma Health Wadsworth - [facility] Center05-09-2022 Miscellaneous Notes* Telephone Encounter - Meme [...] advise. Meme Easton RN documented in this encounterSumma Health Wadsworth - [facility] Center04-25-2022 Miscellaneous Notes* Telephone Encounter - Meme [...] Thoughts? Meme Easton RN documented in this encounterSumma Health Wadsworth - [facility] Center04-22-2022 Hospital Discharge instructions Patient Education 08/19/2021 [...] including vitamins, herbs, eye drops, creams, and vpym-efu-dtzhapi medicines. ?Whether you are or may be [...] 02/11/2008 Document Revised: 08/05/2019 Document Reviewed: 02/18/2018 [employer] Patient Education 2020 [employer] 08/19/2021 13:02:21 Dysuria Dysuria Dysuria is [...] alcohol may irritate the prostate. Medicines Take dnis-kum-kipoycx and prescription medicines only as told by [...] 01/12/2005 Document Revised: 03/29/2018 Document Reviewed: 01/31/2018 [employer] Patient Education 2020 [employer] 08/19/2021 13:02:17 Budget-Friendly Healthy Eating Budget-Friendly Healthy [...] frozen fruits, and frozen vegetables. Avoid buying nnzuw-nz-bis foods, such as pre-cut fruits and vegetables and pre-made salads. If possible, shop around to discover where you can find the best prices. Consider other retailers such as dollar stores, larger wholesale stores, local fruit and vegetable stands, and farmers markets. Do not shop when you are [...] 12/18/2014 Document Revised: 04/17/2018 Document Reviewed: 04/17/2018 [employer] Patient Education 2020 [employer]. 08/19/2021 13:02:15 BMI for Adults BMI for [...] height. This can be done either in [place] or metric measurements. Note that charts are available to help you find your BMI quickly and easily without having to do these calculations yourself. To calculate your BMI in [place] measurements, your health care provider will: [...] medical problems. BMI can be measured using [place]ene[place]in measurements or metric measurements. To interpret your [...] 12/26/2004 Document Revised: 03/29/2018 Document Reviewed: 02/27/2018 [employer] Patient Education 2020 [employer] 08/19/2021 13:02:11 Paresthesia Paresthesia Paresthesia is an [...] fried or sweet foods. General instructions Take yodp-ekg-sxoqbow and prescription medicines only as told by [...] 04/06/2003 Document Revised: 05/12/2019 Document Reviewed: 04/25/2018 [employer] Patient Education 2020 [employer]. Follow Up Care 08/19/2021 09:17:52 With:PRAVEEN RESENDEZ FAAFP, Evans Tony, CHRIS, PED Address: [address] [place] [address] [place] [address]- When:1 to 2 weeks [facility] 04-22-2022 Evaluation + Plan note Future Scheduled Tests Radiology* XR Spine Lumbosacral Minimum 4 Views 08/19/21 [facility]04-07-2022 Miscellaneous Notes* Telephone Encounter - Harjit Haskins - 08/04/2021 3:36 PM EDT Patient is scheduled for 09/[address] Elliott. Harjit Haskins * Telephone Encounter - Harjit Haskins - 08/01/2021 1:05 PM EDT Sent Email to [facility] to refer patient back to Dr. Cosmo Elliott Dx: Primary hypercoagulable state (HCC) Harjit Divine documented in this encounterSumma Health Wadsworth - [facility] Center04-04-2022 Nurse Note* Ebony Redding Ma - 08/01/2021 12:48 PM EDT UA ran as ordered. Ebony Redding Ma documented in this encounterSumma Health Wadsworth - Rittman Medical CenterEvaluation + Plan note Future Appointments Appointment Date:11/08/2021 12:40:00 PM Scheduled Provider:Evans CASAS DO, FAAFP Location:[facility] Appointment Type: Open Future Scheduled Tests Radiology* XR Spine Lumbosacral Minimum 4 Views 08/19/21 [facility] Evaluation + Plan note Future Appointments Appointment Date:11/08/2021 12:40:00 PM Scheduled Provider:Evans CASAS DO, FAAFP Location:[facility] Appointment Type: Open Diagnostic Tests Pending * Urine Culture 08/19/21 Future Scheduled Tests Radiology* XR Spine Lumbosacral Minimum 4 Views 08/19/21 [facility] Future Appointments Appointment Date:09/21/2022 10:00:00 AM Scheduled Provider:Evans CASAS DO, FAAFP Location:[facility] Appointment Type:FM Open [facility] Future Appointments Appointment Date:10/20/2022 09:40:00 AM Scheduled Provider:Evans CASAS DO, FAAFP Location:[facility] Appointment Type:FM Open [facility] Future Appointments Appointment Date:01/26/2023 10:40:00 AM Scheduled Provider:Evans CASAS DO, FAAFP Location:[facility] Appointment Type:[facility] Evaluation + Plan note Future Appointments Appointment Date:04/17/2023 02:20:00 PM Scheduled Provider:Evans CASAS DO, FAAFP Location:[facility] Appointment Type: Open Future Scheduled Tests Laboratory* HgbA1c 02/15/23 * Thyroid Stimulating Hormone 02/15/23 * Thyroid Stimulating Hormone 01/11/23 [facility] Evaluation + Plan note Future Appointments Appointment Date:07/24/2023 01:20:00 PM Scheduled Provider:Evans CASAS DO, FAAFP Location:[facility] Appointment Type: Open Future Scheduled Tests Laboratory* HgbA1c 02/15/23 * Thyroid Stimulating Hormone 02/15/23 [facility] Future Appointments Appointment Date:07/24/2023 01:20:00 PM Scheduled Provider:Evans CASAS DO, FAAFP Location:[facility] Appointment Type:[facility] evaluation + Plan note Future Appointments Appointment Date:12/03/2023 12:40:00 PM Scheduled Provider:Evans CASAS DO, FAAFP Location:[facility] Appointment Type: Open Future Scheduled Tests Laboratory* HgbA1c 08/03/23 [facility] evaluation + Plan note Future Appointments Appointment Date:12/03/2023 12:40:00 PM Scheduled Provider:Evans CASAS DO, FAAFP Location:[facility] Appointment Type: Open Future Scheduled Tests Laboratory* Sedimentation Rate Automated 11/09/23 * HgbA1c 08/03/23 * Amylase Level 11/09/23 * Cortisol 11/09/23 * C-Reactive Protein 11/09/23 * T3 Free 11/09/23 * Thyroid Stimulating Hormone 11/09/23 * Free T4 11/09/23 * Vitamin B12 Level 11/09/23 Radiology* MRI Brain w/o Contrast 11/09/23 * MRI Orbit Face Neck w/o contrast 11/09/23 [facility] evaluation + Plan note Future Appointments Appointment Date:01/11/2024 08:15:00 PM Scheduled Provider: Location:.SLEEP LAB_ Appointment Type:SHEEP SORTER Sleep Study PSG () Appointment Date:01/29/2024 01:20:00 PM Scheduled Provider:Evans CASAS DO, FAAFP Location:[facility] Appointment Type:FM Open Diagnostic Tests Pending * Cortisol 12/06/23 * T3 Free 12/06/23 Future Scheduled Tests Laboratory* HgbA1c 08/03/23 Radiology* CT Soft Tissue Neck w/ Contrast 11/12/23 [facility] evaluation + Plan note Future Appointments Appointment Date:05/16/2024 11:40:00 AM Scheduled Provider:Evans CASAS DO, FAAFP Location:[facility] Appointment Type:FM Open Future Scheduled Tests Laboratory* HgbA1c 02/05/24 * HgbA1c 05/07/24 * HgbA1c 08/05/24 * HgbA1c 11/04/24 * HgbA1c 08/03/23 * HIV Screen 4th Generation wRfx 02/05/24 * HIV Screen 4th Generation wRfx 02/05/24 * Lipid Panel 02/05/24 Radiology* CT Soft Tissue Neck w/ Contrast 11/12/23 [facility] Evaluation + Plan note Future Appointments Appointment Date:05/16/2024 11:40:00 AM Scheduled Provider:Evans CASAS DO, FAAFP Location:[facility] Appointment Type:FM Open Future Scheduled Tests Laboratory* HgbA1c 05/07/24 * HgbA1c 08/05/24 * HgbA1c 11/04/24 Radiology* CT Soft Tissue Neck w/ Contrast 11/12/23 [facility] evaluation + Plan note Future Appointments Appointment Date:05/16/2024 11:40:00 AM Scheduled Provider:Evans CASAS DO, FAAFP Location:[facility] Appointment Type:FM Open Diagnostic Tests Pending * HIV Screen 4th Generation wRfx 02/23/24 Future Scheduled Tests Laboratory* HgbA1c 05/07/24 * HgbA1c 08/05/24 * HgbA1c 11/04/24 Radiology* CT Soft Tissue Neck w/ Contrast 11/12/23 [facility] evaluation + Plan note Future Appointments Appointment Date:05/16/2024 11:40:00 AM Scheduled Provider:Evans CASAS DO, FAAFP Location:[facility] Appointment Type:FM Open Future Scheduled Tests Laboratory* HgbA1c 08/05/24 * HgbA1c 11/04/24 Radiology* CT Soft Tissue Neck w/ Contrast 11/12/23 [facility] evaluation + Plan note Future Appointments Appointment Date:05/16/2024 11:40:00 AM Scheduled Provider:Evans CASAS DO, FAAFP Location:[facility] Appointment Type:FM Open Diagnostic Tests Pending * Urine Culture 03/01/24 Future Scheduled Tests Laboratory* HgbA1c 08/05/24 * HgbA1c 11/04/24 Radiology* CT Soft Tissue Neck w/ Contrast 11/12/23 [facility] evaluation note* Diagnosis Infective urethritis- Primary Urethritis, unspecified documented in this encounter [facility] CenterEvalubee[facility] note* Diagnosis Primary hypercoagulable state (HCC) Primary hypercoagulable state CVA, old, speech/language deficit Speech and language deficit, unspecified, 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 Hyposmolality and/or hyponatremia documented in this encounter [facility]Eval[facility]* Diagnosis Primary hypercoagulable state (HCC) Primary hypercoagulable state CVA, old, speech/language deficit Speech and language deficit, unspecified, 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 Hyposmolality and/or hyponatremia documented in this encounter [facility]* Diagnosis Primary hypercoagulable state (HCC)- Primary Primary hypercoagulable state CVA, old, speech/language deficit Speech and language deficit, unspecified, late effect of cerebrovascular disease Antiphospholipid antibody syndrome (HCC) Primary hypercoagulable state Anemia, unspecified type documented in this encounter [facility]Eval[facility]* Diagnosis Iron deficiency anemia secondary to blood loss (chronic) Iron deficiency anemia of Anemia of mother, complicating , childbirth, or the puerperium, unspecified as to episode of care documented in this encounter [facility]* 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 Iron deficiency anemia of Anemia of mother, complicating , childbirth, or the puerperium, unspecified as to episode of care documented in this encounter [facility]* Diagnosis Primary hypercoagulable state (HCC) Primary hypercoagulable state CVA, old, speech/language deficit Speech and language deficit, unspecified, 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 Hyposmolality and/or hyponatremia documented in this encounter [facility]* 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 Iron deficiency anemia of Anemia of mother, complicating , childbirth, or the puerperium, unspecified as to episode of care [facility] Diagnosis Primary hypercoagulable state (HCC) Primary hypercoagulable state CVA, old, speech/language deficit Speech and language deficit, unspecified, 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 Hyposmolality and/or hyponatremia documented [facility] encounter [facility]* Diagnosis Primary hypercoagulable state (HCC)- Primary Primary hypercoagulable state 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, old, speech/language deficit Speech and language deficit, unspecified, late effect of cerebrovascular disease documented in this encounter [facility]* Diagnosis Primary hypercoagulable state (HCC) Primary hypercoagulable state CVA, old, speech/language deficit Speech and language deficit, unspecified, 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 Hyposmolality and/or hyponatremia documented [facility] encounter [facility]* Diagnosis Primary hypercoagulable state (HCC)- Primary Primary hypercoagulable state Iron deficiency anemia of Anemia of mother, complicating , childbirth, or the puerperium, unspecified as to episode of care Iron deficiency anemia secondary to blood loss (chronic) Vitamin D deficiency Unspecified vitamin D deficiency documented in this encounter [facility]* Diagnosis Primary hypercoagulable state (HCC)- Primary Primary hypercoagulable state Iron deficiency anemia secondary to blood loss (chronic) Vitamin D deficiency Unspecified vitamin D deficiency CVA, old, speech/language deficit Speech and language deficit, unspecified, late effect of cerebrovascular disease Antiphospholipid antibody syndrome (HCC) Primary hypercoagulable state [facility] Diagnosis Primary hypercoagulable state (HCC)- Primary Primary hypercoagulable state CVA, old, speech/language deficit Speech and language deficit, unspecified, late effect of cerebrovascular disease Hypercalcemia Vitamin D deficiency Unspecified vitamin D deficiency Iron deficiency anemia secondary to blood loss (chronic) Malaise and fatigue Other malaise and fatigue [facility]* Diagnosis Vitamin D deficiency- Primary Unspecified vitamin D deficiency 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) Antiphospholipid antibody syndrome (HCC) Primary hypercoagulable state Malaise and fatigue Other malaise and fatigue [facility] Diagnosis Vitamin D deficiency- Primary Unspecified vitamin D deficiency 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) [facility]* 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 [facility]* Diagnosis Iron deficiency anemia of - Primary Anemia of mother, complicating , childbirth, or the puerperium, unspecified as to episode of care Iron deficiency anemia secondary to blood loss (chronic) [facility]* Diagnosis Iron deficiency anemia of - Primary Anemia of mother, complicating , childbirth, or the puerperium, unspecified as to episode of care Iron deficiency anemia secondary to blood loss (chronic) [facility]* 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 Vitamin D deficiency Unspecified vitamin D deficiency Malaise and fatigue Other malaise and fatigue [facility]* Diagnosis Primary hypercoagulable state (HCC) Primary hypercoagulable state CVA, old, speech/language deficit Speech and language deficit, unspecified, 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 Hyposmolality and/or hyponatremia documented in this encounter [facility]* Diagnosis Missed menses , unspecified gestational age Encounter for supervision of normal first in first trimester Hypothyroidism (acquired) (CMS/HCC) Unspecified hypothyroidism Low vitamin D level documented in this encounter [facility] HealthcareEvaluation note* Diagnosis 14 weeks gestation of Second trimester state, incidental Confirm viability with history of miscarriage, ultrasound Encounter for routine screening for malformation using ultrasonics [facility] Narrative No data available for this section [facility] Discharge instructions No data available for this section [facility] No data available for this section [facility] (narrative) , pt reported hx of nasal polyps and deviated septum but never had surgery done Referred by: Lourdes Urrutia [facility] Summary Purpose Family History No [...] section and content) DATE CREATED AUTHOR 10/22/2017 [facility] DATE CREATED AUTHOR AUTHOR'S ORGANIZ ATION 11/14/2017 [employer] DATE CREATED AUTHOR AUTHOR'S ORGANIZ ATION 06/18/2018 [facility] DATE CREATED AUTHOR AUTHOR'S ORGANIZ ATION 12/30/2021 [facility] DATE CREATED AUTHOR AUTHOR'S ORGANIZ ATION 06/09/2022 [facility] DATE CREATED AUTHOR AUTHOR'S ORGANIZ ATION 09/29/2023 [facility] DATE CREATED AUTHOR AUTHOR'S ORGANIZ ATION 11/21/2023 [facility] dical [facility] [address] DATE CREATED AUTHOR AUTHOR'S ORGANIZ ATION 12/03/2023 [facility] DATE CREATED AUTHOR AUTHOR'S ORGANIZ ATION 12/09/2023 [facility] DATE CREATED AUTHOR AUTHOR'S ORGANIZ ATION 12/10/2023 [facility] DATE CREATED AUTHOR AUTHOR'S ORGANIZ ATION 01/27/2024 [facility] DATE CREATED AUTHOR AUTHOR'S ORGANIZ ATION 02/24/2024 [facility] DATE CREATED AUTHOR AUTHOR'S ORGANIZ ATION 02/26/2024 [facility] DATE CREATED AUTHOR AUTHOR'S ORGANIZ ATION 02/28/2024 [facility] DATE CREATED AUTHOR AUTHOR'S ORGANIZ ATION 02/29/2024 [facility] DATE CREATED AUTHOR AUTHOR'S ORGANIZ ATION 03/02/2024 [facility] DATE CREATED AUTHOR AUTHOR'S ORGANIZ ATION 03/03/2024 [facility] DATE CREATED AUTHOR AUTHOR'S ORGANIZ ATION 03/08/2024 [facility] Source Comments (unrecognize d section and content) In the event this informatio n is protected by the Federal Confidentiality of Alcohol and Drug Abuse Patient Records regulations: The Federal rules restrict any use of the information to criminally investigate or prosecute any alcohol or drug abuse patient.[facility] CenterIn the event this information is protected by the Federal Confidentiality of Alcohol and Drug Abuse Patient Records regulations: The Federal rules restrict any use of the information to criminally investigate or prosecute any alcohol or drug abuse patient.[facility] CenterIn the event this information is protected by the Federal Confidentiality of Alcohol and Drug Abuse Patient Records regulations: The Federal rules restrict any use of the information to criminally investigate or prosecute any alcohol or drug abuse patient.[facility] CenterIn the event this information is protected by the Federal Confidentiality of Alcohol and Drug Abuse Patient Records regulations: The Federal rules restrict any use of the information to criminally investigate or prosecute any alcohol or drug abuse patient.[facility] CenterIn the event this information is protected by the Federal Confidentiality of Alcohol and Drug Abuse Patient Records regulations: The Federal rules restrict any use of the information to criminally investigate or prosecute any alcohol or drug abuse patient.[facility] CenterIn the event this information is protected by the Federal Confidentiality of Alcohol and Drug Abuse Patient Records regulations: The Federal rules restrict any use of the information to criminally investigate or prosecute any alcohol or drug abuse patient.[facility] CenterIn the event this information is protected by the Federal Confidentiality of Alcohol and Drug Abuse Patient Records regulations: The Federal rules restrict any use of the information to criminally investigate or prosecute any alcohol or drug abuse patient.[facility] CenterIn the event this information is protected by the Federal Confidentiality of Alcohol and Drug Abuse Patient Records regulations: The Federal rules restrict any use of the information to criminally investigate or prosecute any alcohol or drug abuse patient.[facility] CenterIn the event this information is protected by the Federal Confidentiality of Alcohol and Drug Abuse Patient Records regulations: The Federal rules restrict any use of the information to criminally investigate or prosecute any alcohol or drug abuse patient.[facility] CenterIn the event this information is protected by the Federal Confidentiality of Alcohol and Drug Abuse Patient Records regulations: The Federal rules restrict any use of the information to criminally investigate or prosecute any alcohol or drug abuse patient.[facility] CenterIn the event this information is protected by the Federal Confidentiality of Alcohol and Drug Abuse Patient Records regulations: The Federal rules restrict any use of the information to criminally investigate or prosecute any alcohol or drug abuse patient.[facility] CenterIn the event this information is protected by the Federal Confidentiality of Alcohol and Drug Abuse Patient Records regulations: The Federal rules restrict any use of the information to criminally investigate or prosecute any alcohol or drug abuse patient.[facility] CenterIn the event this information is protected by the Federal Confidentiality of Alcohol and Drug Abuse Patient Records regulations: The Federal rules restrict any use of the information to criminally investigate or prosecute any alcohol or drug abuse patient.[facility] CenterIn the event this information is protected by the Federal Confidentiality of Alcohol and Drug Abuse Patient Records regulations: The Federal rules restrict any use of the information to criminally investigate or prosecute any alcohol or drug abuse patient.[facility] CenterIn the event this information is protected by the Federal Confidentiality of Alcohol and Drug Abuse Patient Records regulations: The Federal rules restrict any use of the information to criminally investigate or prosecute any alcohol or drug abuse patient.[facility] CenterIn the event this information is protected by the Federal Confidentiality of Alcohol and Drug Abuse Patient Records regulations: The Federal rules restrict any use of the information to criminally investigate or prosecute any alcohol or drug abuse patient.[facility] CenterIn the event this information is protected by the Federal Confidentiality of Alcohol and Drug Abuse Patient Records regulations: The Federal rules restrict any use of the information to criminally investigate or prosecute any alcohol or drug abuse patient.[facility] CenterIn the event this information is protected by the Federal Confidentiality of Alcohol and Drug Abuse Patient Records regulations: The Federal rules restrict any use of the information to criminally investigate or prosecute any alcohol or drug abuse patient.[facility] CenterIn the event this information is protected by the Federal Confidentiality of Alcohol and Drug Abuse Patient Records regulations: The Federal rules restrict any use of the information to criminally investigate or prosecute any alcohol or drug abuse patient.[facility] CenterIn the event this information is protected by the Federal Confidentiality of Alcohol and Drug Abuse Patient Records regulations: The Federal rules restrict any use of the information to criminally investigate or prosecute any alcohol or drug abuse patient.[facility] CenterIn the event this information is protected by the Federal Confidentiality of Alcohol and Drug Abuse Patient Records regulations: The Federal rules restrict any use of the information to criminally investigate or prosecute any alcohol or drug abuse patient.[facility] CenterIn the event this information is protected by the Federal Confidentiality of Alcohol and Drug Abuse Patient Records regulations: The Federal rules restrict any use of the information to criminally investigate or prosecute any alcohol or drug abuse patient.[facility] CenterIn the event this information is protected by the Federal Confidentiality of Alcohol and Drug Abuse Patient Records regulations: The Federal rules restrict any use of the information to criminally investigate or prosecute any alcohol or drug abuse patient.[facility] CenterIn the event this information is protected by the Federal Confidentiality of Alcohol and Drug Abuse Patient Records regulations: The Federal rules restrict any use of the information to criminally investigate or prosecute any alcohol or drug abuse patient.[facility] CenterIn the event this information is protected by the Federal Confidentiality of Alcohol and Drug Abuse Patient Records regulations: The Federal rules restrict any use of the information to criminally investigate or prosecute any alcohol or drug abuse patient.[facility] CenterIn the event this information is protected by the Federal Confidentiality of Alcohol and Drug Abuse Patient Records regulations: The Federal rules restrict any use of the information to criminally investigate or prosecute any alcohol or drug abuse patient.[facility] CenterIn the event this information is protected by the Federal Confidentiality of Alcohol and Drug Abuse Patient Records regulations: The Federal rules restrict any use of the information to criminally investigate or prosecute any alcohol or drug abuse patient.[facility] CenterIn the event this information is protected by the Federal Confidentiality of Alcohol and Drug Abuse Patient Records regulations: The Federal rules restrict any use of the information to criminally investigate or prosecute any alcohol or drug abuse patient.[facility] CenterIn the event this information is protected by the Federal Confidentiality of Alcohol and Drug Abuse Patient Records regulations: The Federal rules restrict any use of the information to criminally investigate or prosecute any alcohol or drug abuse patient.[facility] CenterIn the event this information is protected by the Federal Confidentiality of Alcohol and Drug Abuse Patient Records regulations: The Federal rules restrict any use of the information to criminally investigate or prosecute any alcohol or drug abuse patient.[facility] CenterIn the event this information is protected by the Federal Confidentiality of Alcohol and Drug Abuse Patient Records regulations: The Federal rules restrict any use of the information to criminally investigate or prosecute any alcohol or drug abuse patient.[facility] CenterIn the event this information is protected by the Federal Confidentiality of Alcohol and Drug Abuse Patient Records regulations: The Federal rules restrict any use of the information to criminally investigate or prosecute any alcohol or drug abuse patient.[facility] CenterIn the event this information is protected by the Federal Confidentiality of Alcohol and Drug Abuse Patient Records regulations: The Federal rules restrict any use of the information to criminally investigate or prosecute any alcohol or drug abuse patient.[facility] CenterIn the event this information is protected by the Federal Confidentiality of Alcohol and Drug Abuse Patient Records regulations: The Federal rules restrict any use of the information to criminally investigate or prosecute any alcohol or drug abuse patient.[facility] CenterIn the event this information is protected by the Federal Confidentiality of Alcohol and Drug Abuse Patient Records regulations: The Federal rules restrict any use of the information to criminally investigate or prosecute any alcohol or drug abuse patient.[facility] CenterIn the event this information is protected by the Federal Confidentiality of Alcohol and Drug Abuse Patient Records regulations: The Federal rules restrict any use of the information to criminally investigate or prosecute any alcohol or drug abuse patient.[facility] CenterIn the event this information is protected by the Federal Confidentiality of Alcohol and Drug Abuse Patient Records regulations: The Federal rules restrict any use of the information to criminally investigate or prosecute any alcohol or drug abuse patient.[facility] CenterIn the event this information is protected by the Federal Confidentiality of Alcohol and Drug Abuse Patient Records regulations: The Federal rules restrict any use of the information to criminally investigate or prosecute any alcohol or drug abuse patient.[facility] CenterIn the event this information is protected by the Federal Confidentiality of Alcohol and Drug Abuse Patient Records regulations: The Federal rules restrict any use of the information to criminally investigate or prosecute any alcohol or drug abuse patient.[facility] CenterIn the event this information is protected by the Federal Confidentiality of Alcohol and Drug Abuse Patient Records regulations: The Federal rules restrict any use of the information to criminally investigate or prosecute any alcohol or drug abuse patient.[facility] CenterIn the event this information is protected by the Federal Confidentiality of Alcohol and Drug Abuse Patient Records regulations: The Federal rules restrict any use of the information to criminally investigate or prosecute any alcohol or drug abuse patient.[facility] CenterIn the event this information is protected by the Federal Confidentiality of Alcohol and Drug Abuse Patient Records regulations: The Federal rules restrict any use of the information to criminally investigate or prosecute any alcohol or drug abuse patient.[facility] CenterIn the event this information is protected by the Federal Confidentiality of Alcohol and Drug Abuse Patient Records regulations: The Federal rules restrict any use of the information to criminally investigate or prosecute any alcohol or drug abuse patient.[facility] Care Teams (unrecognized sec tion and content) Development Mgr Relationship Specialty Start Date End Date Humaira Gaviria MD [address] [place] [place] [address] PCP - General Internal Medicine 07/05/18 Jonny Wilcox MD [address] [place] [address] Primary Staff Physician Cardiology 07/16/18 Development Mgr Relationship Specialty Start Date End Date Humaira Gaviria MD [address] [place] [place] [address] PCP - General Internal Medicine 07/05/18 Jonny Wilcox MD [address] [facility] [place] [address] Primary Staff Physician Cardiology 07/16/18 Development Mgr Relationship Specialty Start Date End Date Humaira Gaviria MD [address] [place] [address] PCP - General Internal Medicine 07/05/18 Jonny Wilcox MD [address] [facility] [place] [address] Primary Staff Physician Cardiology 07/16/18 Development Mgr Relationship Specialty Start Date End Date Humaira Gaviria MD [address] [place] [place] [address] PCP - General Internal Medicine 07/05/18 Jonny Wilcox MD [address] [place] [address] Primary Staff Physician Cardiology 07/16/18 Development Mgr Relationship Specialty Start Date End Date Humaira Gaviria MD [address] [place] [place] [address] PCP - General Internal Medicine 07/05/18 Jonny Wilcox MD [address] [place] [address] Primary Staff Physician Cardiology 07/16/18 [place] [address] [place] [address] Physician Hematology/Oncology 09/14/21 Davida Restrepo, RN [address] [place] [address] Specialty Prizer Hand Hematology/Oncology 09/14/21 Development Mgr Relationship Specialty Start Date End Date Evans Casas [address] [place] [address] PCP - General Family Medicine 10/04/20 Development Mgr Relationship Specialty Start Date End Date Humaira Gaviria MD [address] [place] [address] PCP - General Internal Medicine 07/05/18 Jonny Wilcox MD [address] [place] [address] Primary Staff Physician Cardiology 07/16/18 [place] [address] [place] [address] Physician Hematology/Oncology 09/14/21 Davida Restrepo, RN [address] [place] [address] Specialty Prizer Hand Hematology/Oncology 09/14/21 Development Mgr Relationship Specialty Start Date End Date Evans Casas DO [address] [facility] [place] [address] PCP - General Family Medicine 01/30/22 Jonny Wilcox MD [address] [place] [address] Primary Staff Physician Cardiology 07/16/18 [place] [address] [place] [address] Physician Hematology/Oncology 09/14/21 Davida Restrepo, RN [address] [place] [address] Specialty Prizer Hand Hematology/Oncology 09/14/21 Development Mgr Relationship Specialty Start Date End Date Evans Casas DO [address] [facility] [address] [place] [address] PCP - General Family Medicine 01/30/22 Jonny Wilcox MD [address] [place] [address] Primary Staff Physician Cardiology 07/16/18 [place] [address] [place] [address] Physician Hematology/Oncology 09/14/21 Davida Restrepo RN [address] [place] [address] Specialty Prizer Hand Hematology/Oncology 09/14/21 Development Mgr Relationship Specialty Start Date End Date Evnas Casas DO [address] [facility] [place] [address] PCP - General Family Medicine 01/30/22 Jonny Wilcox MD [address] [place] [address] Primary Staff Physician Cardiology 07/16/18 [place] [address] [place] [address] Physician Hematology/Oncology 09/14/21 Davida Restrepo, RN [address] [place] [address] Specialty Prizer Hand Hematology/Oncology 09/14/21 Development Mgr Relationship Specialty Start Date End Date Evans Casas DO [address] [place] [address] PCP - General Family Medicine 01/30/22 Jonny Wilcox MD [address] [place] [address] Primary Staff Physician Cardiology 07/16/18 [place] [address] [place] [address] Physician Hematology/Oncology 09/14/21 Davida Restrepo, RN [address] [place] [address] Specialty Prizer Hand Hematology/Oncology 09/14/21 Development Mgr Relationship Specialty Start Date End Date Evans Casas DO [address] [place] [address] PCP - General Family Medicine 01/30/22 Jonny Wilcox MD [address] [place] [address] Primary Staff Physician Cardiology 07/16/18 [place] [address] [place] [address] Physician Hematology/Oncology 09/14/21 Davida Restrepo, RN [address] [place] [address] Specialty Prizer Hand Hematology/Oncology 09/14/21 Development Mgr Relationship Specialty Start Date End Date Evans Casas DO [address] [place] [address] PCP - General Family Medicine 01/30/22 Jonny Wilcox MD [address] [place] [address] Primary Staff Physician Cardiology 07/16/18 [place] [address] [place] [address] Physician Hematology/Oncology 09/14/21 Davida Restrepo, RN [address] [place] [address] Specialty Prizer Hand Hematology/Oncology 09/14/21 Development Mgr Relationship Specialty Start Date End Date Evans Casas, DO [address] [place] [address] PCP - General Family Medicine 01/30/22 Jonny Wilcox MD [address] [place] [address] Primary Staff Physician Cardiology 07/16/18 [place] [address] [place] [address] Physician Hematology/Oncology 09/14/21 Davida Restrepo, RN [address] [place] [address] Specialty Prizer Hand Hematology/Oncology 09/14/21 Development Mgr Relationship Specialty Start Date End Date Evans Casas, DO [address] [place] [address] PCP - General Family Medicine 01/30/22 Jonny Wilcox MD [address] [place] [address] Primary Staff Physician Cardiology 07/16/18 [place] [address] [place] [address] Physician Hematology/Oncology 09/14/21 Davida Restrepo, RN [address] [place] [address] Specialty Prizer Hand Hematology/Oncology 09/14/21 Development Mgr Relationship Specialty Start Date End Date Evans Casas DO [address] [place] [address] PCP - General Family Medicine 01/30/22 Jonny Wilcox MD [address] [place] [address] Primary Staff Physician Cardiology 07/16/18 [place] [address] [place] [address] Physician Hematology/Oncology 09/14/21 Davida Restrepo, RN [address] [place] [address] Specialty Prizer Hand Hematology/Oncology 09/14/21 Development Mgr Relationship Specialty Start Date End Date Evans Casas DO [address] [facility] [place] [place] [address] PCP - General Family Medicine 01/30/22 Jonny Wilcox MD [address] [place] [address] Primary Staff Physician Cardiology 07/16/18 [place] [address] [place] [address] Physician Hematology/Oncology 09/14/21 Davida Restrepo, MARSHA [address] [place] [address] Specialty Prizer Hand Hematology/Oncology 09/14/21 Development Mgr Relationship Specialty Start Date End Date Evans Casas DO [address] [place] [address] PCP - General Family Medicine 01/30/22 Jonny Wilcox MD [address] [facility] [place] [address] Primary Staff Physician Cardiology 07/16/18 [place] [address] [place] [address] Physician Hematology/Oncology 09/14/21 Davida Restrepo RN [address] [facility] [place] [address] Specialty Prizer Hand Hematology/Oncology 09/14/21 Development Mgr Relationship Specialty Start Date End Date Evans Casas DO [address] [place] [address] PCP - General Family Medicine 01/30/22 Jonny Wilcox MD [address] [place] [address] Primary Staff Physician Cardiology 07/16/18 [place] [address] [place] [address] Physician Hematology/Oncology 09/14/21 Davida Restrepo RN [address] [facility] [place] [address] Specialty Prizer Hand Hematology/Oncology 09/14/21 Development Mgr Relationship Specialty Start Date End Date Evans Casas DO [address] [place] [address] PCP - General Family Medicine 01/30/22 Jonny Wilcox MD [address] [facility] [place] [address] Primary Staff Physician Cardiology 07/16/18 [place] [address] [place] [address] Physician Hematology/Oncology 09/14/21 Davida Restrepo, RN [address] [place] [address] Specialty Prizer Hand Hematology/Oncology 09/14/21 Development Mgr Relationship Specialty Start Date End Date Evans Casas DO [address] [facility] [place] [address] PCP - General Family Medicine 01/30/22 Jonny Wilcox MD [address] [place] [address] Primary Staff Physician Cardiology 07/16/18 [place] [address] [place] [address] Physician Hematology/Oncology 09/14/21 Davida Restrepo, RN [address] [place] [address] Specialty Prizer Hand Hematology/Oncology 09/14/21 Development Mgr Relationship Specialty Start Date End Date Evans Casas DO [address] [facility] [place] [place] [address] PCP - General Family Medicine 01/30/22 Jonny Wilcox MD [address] [place] [address] Primary Staff Physician Cardiology 07/16/18 [place] [address] [place] [address] Physician Hematology/Oncology 09/14/21 Davida Restrepo RN [address] [place], [place] [address] Specialty Prizer Hand Hematology/Oncology 09/14/21 Development Mgr Relationship Specialty Start Date End Date Evans Casas DO [address] [place] [address] PCP - General Family Medicine 01/30/22 Jonny Wilcox MD [address] [place] [address] Primary Staff Physician Cardiology 07/16/18 [place] [address] [place] [address] Physician Hematology/Oncology 09/14/21 Davida Restrepo RN [address] [place], [place] [id number] Specialty Prizer Hand Hematology/Oncology 09/14/21 Development Mgr Relationship Specialty Start Date End Date Evans Casas DO [address] [place] [address] PCP - General Family Medicine 01/30/22 Jonny Wilcox MD [address] [place] [address] Primary Staff Physician Cardiology 07/16/18 [place] [address] [place] [address] Physician Hematology/Oncology 09/14/21 Davida Restrepo RN [address] [place] [address] Specialty Prizer Hand Hematology/Oncology 09/14/21 Development Mgr Relationship Specialty Start Date End Date Evans Casas DO [address] [address] PCP - General Family Medicine 01/30/22 Jonny Wilcox MD [address] [place] [address] Primary Staff Physician Cardiology 07/16/18 [place] [address] [place] [address] Physician Hematology/Oncology 09/14/21 Davida Restrepo, RN [address] [place], [place] [address] Specialty Prizer Hand Hematology/Oncology 09/14/21 Development Mgr Relationship Specialty Start Date End Date Evans Casas DO [address] [address] PCP - General Family Medicine 01/30/22 Jonny Wilcox MD [address] [place] [address] Primary Staff Physician Cardiology 07/16/18 [place] [address] [place] [address] Physician Hematology/Oncology 09/14/21 Davida Restrepo, RN [address] [place], [place] [address] Specialty Prizer Hand Hematology/Oncology 09/14/21 Development Mgr Relationship Specialty Start Date End Date Evans Casas DO [address] [place] [address] PCP - General Family Medicine 01/30/22 Jonny Wilcox MD [address] [place] [address] Primary Staff Physician Cardiology 07/16/18 [place] [address] [place] [address] Physician Hematology/Oncology 09/14/21 Davida Restrepo, RN [address] [place] [address] Specialty Prizer Hand Hematology/Oncology 09/14/21 Development Mgr Relationship Specialty Start Date End Date Evans Casas DO [address] [facility] [place] [address] PCP - General Family Medicine 01/30/22 Jonny Wilcox MD [address] [place] [address] Primary Staff Physician Cardiology 07/16/18 [place] [address] [place] [address] Physician Hematology/Oncology 09/14/21 Davida Restrepo, RN [address] [place] [address] Specialty Prizer Hand Hematology/Oncology 09/14/21 Development Mgr Relationship Specialty Start Date End Date Evans Casas DO [address] [place] [address] PCP - General Family Medicine 01/30/22 Jonny Wilcox MD [address] [place] [address] Primary Staff Physician Cardiology 07/16/18 [place] [address] [place] [address] Physician Hematology/Oncology 09/14/21 Davida Restrepo RN [address] [place] [address] Specialty Prizer Hand Hematology/Oncology 09/14/21 Development Mgr Relationship Specialty Start Date End Date Evans Casas DO [address] [facility] [place] [place] [address] PCP - General Family Medicine 01/30/22 Jonny Wilcox MD [address] [place] [address] Primary Staff Physician Cardiology 07/16/18 [place] [address] [place] [address] Physician Hematology/Oncology 09/14/21 Davida Restrepo RN [address] [place] [address] Specialty Prizer Hand Hematology/Oncology 09/14/21 Development Mgr Relationship Specialty Start Date End Date Evans Casas DO [address] [place] [address] PCP - General Family Medicine 01/30/22 Jonny Wilcox MD [address] [place] [address] Primary Staff Physician Cardiology 07/16/18 [place] [address] [place] [address] Physician Hematology/Oncology 09/14/21 Davida Restrepo, RN [address] [place] [address] Specialty Prizer Hand Hematology/Oncology 09/14/21 Development Mgr Relationship Specialty Start Date End Date Evans Casas MD [address] [place] [address] PCP - General Family Medicine 11/07/23 Development Mgr Relationship Specialty Start Date End Date Evans Casas MD [address] [place] [address] PCP - General Family Medicine 11/07/23 Development Mgr Relationship Specialty Start Date End Date Evans Casas MD [address] [place] [address] PCP - General Family Medicine 11/07/23 Development Mgr Relationship Specialty Start Date End Date Evans Casas MD [address] [place] [address] PCP - General Family Medicine 11/07/23 Reason [...] Orders Specialty Diagnoses / Procedures Referred By Contac t Referred To Contact Diagnoses Iron deficiency anemia secondary to blood loss (chronic) Iron deficiency anemia of Procedures INJECTION, FERRIC DERISOMALTOSE, 10 MG Abhyankar, Salvador, MD [address] [place] [address] [place] [address] [address] [employer] [address] [place] [address] Referral ID Status Reason Start Date Expiration Date Visits Re quested Visits Authorized [id number] Closed 04/05/2022 05/09/2022 1 1 Reason Comments Refill Request Specialty Diagnoses / Procedures Referred By Contac t Referred To Contact Diagnoses Iron deficiency anemia secondary to blood loss (chronic) Iron deficiency anemia of Procedures IRON SUCROSE INJECTION PER 1 MG Salvador Calix MD [address] [place] [address] [place] [address] [employer] [address] [place] [address] Referral ID Status Reason Start Date Expiration Date V isits Requested Visits Authorized [id number] Authorized 03/27/2022 04/30/2022 99 99 Reason Onset Date Comments Refill Request 07/03/2022 Reason Comments Anemia Follow up Reason Comments Orders Reason Comments Established Patient Reason Comments Appointment Reason Comments Lab Orders Reason Comments Primary hypercoagulable state (HCC) Foll ow up Reason Comments Appointment Rescheduled Specialty Diagnoses / Procedures Referred By [facility] Referred To Contact Diagnoses Iron deficiency anemia of Iron deficiency anemia secondary to blood loss (chronic) Procedures IRON SUCROSE INJECTION PER 1 MG Salvador Calix MD [address] [place] [address] [place] [address] [address] [employer]audio [address] [place] [address] Referral ID Status Reason Start Date Expiration Date V isits Requested Visits Authorized [id number] Authorized 11/05/2023 05/04/2024 0 3 Reason Onset Date Comments Refill Request 11/29/2023 Reason Comments Amenorrhea Reason Onset Date Comments Refill Request 04/28/2024 Reason Comments Routine Visit FOR RECORDS PERTAINING TO PATIENTS WHO ARE [...] BE BASED ON THE PRIMARY CLINICAL RECORDS. [facility] [employer] [facility]. provides no warranty or guarantee of the accuracy or completeness of information in this document.
== END 2024-05-10 08:14 ==
LOC: US 06:48 → FBC 08:10 → US 08:13
PROVIDERS: PCP Family Medicine; Visit Provider Obstetrics & Gynecology
DX: Z53.9 Procedure and treatment not carried out, unspecified reason (principal)

== ENCOUNTER 2024-05-10 08:14 | Inpatient (IN) | payer MEDICAID, SELFPAY ==
[2024-05-10] VITALS (26 sets, daily range): BP systolic 108–138; BP diastolic 55–83; PULSE 76–103; TEMP 36.5–38.1; O2SAT 99
--- OUTSIDE RECORDS SUMMARY | 2024-05-10 08:18 | XMS_ITS | CCD ---
Author Organization [facility] Care Team Providers Care Wallcovering Texturer Name Role Phone PENG MONGE R Unavailable Unavailable BIBI CHRISTY Unavailable Unavailable ERIKA LONDON Attending Unavailab ERIKA Haddad Referring Unavailab Haseeb Chavez Attending Unavailable Peng Monge Referring Unavailable Humaira Gaviria MD Primary Care Provider Jonny Wilcox MD Unavailable Evans CASAS Primary Care Physician Cheri Norwood Unavailable Unavailable Cosmo Elliott MD Unavailable Lauro LARSON, Davida Unavailable Evans Casas Primary Care Provider EVANS CASAS Primary Care Unavailable TOD LOPEZ Referring Unavailable Humaira Gaviria MD Primary Care Provider [phone] Jonny Wilcox MD P Unavailable Cosmo Elliott MD R Unavailable Lauro RN, Davida Unavailable Evans Casas DO Primary Care Provider [phone] Jonny Wilcox MD P Unavailable Cosmo Elliott MD R Unavailable Lauro LARSON, Davida Unavailable [phone] Eavns Casas DO Primary Care Provider DR WILTON [...] Unavailable MONTEZ, DR ROQUE Primary Care Unavailable [place], DR ANGIE Luna Consulting Unavailable MONTEZ, DR [...] Attending Unavailable Brenden ROSARIO, Jonny Tsai Unavailable [phone] Lauro LARSON, Davida Unavailable [phone] Evans Casas DO Primary Care Provider ZUHAIR [...] Unavailable Day Anni Attending Unavailable KAPBEN, Evans oTny Attending Unavailable KAPBEN, Evans Tony Attending Unavailable [...] Unavailable Kaple Evans ROSARIO Primary Care Provider [phone] Allergies Allergy Classification Reported Allergen(s) Allergy Type Date of Onset Reaction(s) Facility (20 sources) Ciprofloxacin; Translations: [ciprofloxacin] Drug Allergy 05-19-19 Other: See Comments, Unknown, Numbness and tingling sensation of skin (finding), Nausea (finding), Other (See Comments), GI intolerance [facility] Work Phone: (20 sources) Ciprofloxacin / fluocinolone; Translations: [CIPROFLOXACIN-FL UOCINOLONE] Drug Allergy 05-19-19 Other: See Comments [facility] (20 sources) cow milk allergenic extract; Translations: [MILK] Drug Allergy 05-25-19 Other: See Comments [facility] Work Phone: (20 sources) Lactalbumin; Translations: [LACTALBUMIN] Drug Allergy 05-25-19 18 Unknown, GI Upset [facility] (20 sources) Lactose; Translations: [LACTOSE] Drug Allergy 09-11-19 18 GI Upset [facility] (20 sources) Milk Drug Allergy 05-25-19 18 Other: See Comments [facility] (6 sources) Penicillins Drug Allergy 02-01-20 19 Unknown [facility] (20 sources) Seasonal allergy; Translations: [SEASONAL ALLERGIES] Allergy to substance 05-05-19 21 GI Upset, Other: See Comments [facility] Work Phone: (20 sources) Milk Products; Translations: [Milk Products] Drug allergy Illness (finding) [facility] (6 sources) Ciprofloxacin / fluocinolone Drug Allergy 05-19-19 20 Other (See Comments) [email or web address] Work Phone: (1 source) Seasonal allergy Propensity to adverse reactions to substance 05-05-19 21 Other (See Comments) [email or web address] Work Phone: (1 source) Milk-Related Compounds Propensity to adverse reactions to drug 05-25-19 18 Other (See Comments) [employer] Phone: (2 sources) Penicillins Drug Allergy 02-01-20 19 Unknown [facility] (1 source) Ciprofloxacin Drug Allergy 03-30-20 22 [facility] Repository (1 source) MILK CONTAINING PRODUCTS (DAIRY); Translations: [MILK CONTAINING PRODUCTS (DAIRY)] Propensity to adverse reactions to drug (disorder) 05-25-19 18 [facility]ository (5 sources) Lactose (non-medical use) Propensity to adverse reactions 09-11-19 18 [facility] (5 sources) Lactose (non-medical use) Drug Allergy 11-15-19 24 [facility] (5 sources) Octacosanol Drug Intolerance 05-05-19 21 [facility] (5 sources) Other Allergy to substance 05-25-19 18 Other [facility] Work Phone: Medications Current Medications Medication [...] puff(s), Inhalation, q6hr, 1 EA, Refill(s) 5, [facility], 168, cm, 02/02/24 14:43:00 EDT, Height/Length Dosing, 101.1, kg, 02/02/24 14:43:00 EDT, Weight Dosing Start Date: 02/02/24 Status: Ordered azithromycin 250 mg Tab 5-day Dose Pack (Z-Jonny) (2 sources) Start: 02-02-2024 End: 02-07-2024 azithromycin 250 mg Tab 5-day Dose Pack (Z-Jonny) = 1 packet(s), Oral, As Directed, as directed on package labeling, X 5 day(s), # 6 tab(s), Refills(s) 0, Pharmacy: [facility], 168, cm, 02/02/24 14:43:00 EDT, [...] 20 tab(s), Refills(s) 0, Pharmacy: [facility] 1986, 168, cm, 08/19/21 10:50:00 EDT, Height/Length Dosing, 103.6, kg, 08/19/21 10:50:00 EDT, Weight Dosing Start Date: 08/19/21 Stop Date: 08/29/21 Status: Ordered ciprofloxacin 3 mg/ml / dexamethasone 1 mg/ml otic suspension (2 sources) Corticosteroid, Quinolone Antimicrobial Start: 10-23-2023 End: 10-30-2023 Ciprodex 0.3%-0.1% Susp-Otic 4 drop(s), Otic, BID for 7 day(s), 7.5 mL, Refill(s) 0, [facility]/pharmacy #[id number], 168, cm, 10/23/23 16:55:00 EDT, Height/Length Dosing, 106.2, kg, 10/23/23 16:55:00 EDT, Weight Dosing Start Date: 10/23/23 Stop Date: 10/30/23 Status: Ordered Start: 02-15-2023 End: 02-22-2023 Ciprodex 0.3%-0.1% Susp-Otic 4 drop(s), Otic, BID for 7 day(s), 7.5 mL, Refill(s) 0, Only use if drainage or pain of ear shake well before using, [facility], 168, cm, 02/15/23 9:49:00 EDT, [...] Corticosteroid Start: 08-03-2023 Flonase 0.05 m g/inh [place] 2 spray(s), Nasal, Daily, 16 gram, Refill(s) [...] 12-22-2022 Chronic Other aftercare (1 source) Other fdc (current) drug therapy; Translations: [OTH SENIOR CARE CURRENT DRUG THERAPY] Onset: 3 Episodic Other aftercare (1 source) detention (current) use of oral hypoglycemic drugs; Translations: [SENIOR CARE USE ORAL HYPOGLYCEMIC DX] Onset: 3 Episodic [...] than to drugs and biological substances; Translations: [Botwk-zm-oeemhuo vesicular eczema of hands and feet] Onset: [...] sources) Long-term current use of anticoagulant; 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] Onset: 0 02-22-2020 Episodic Other aftercare (5 sources) Long-term current use of drug therapy; Translations: [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/antipl atelets] Onset: 9 [...] 04-27-2023 Episodic Other skin disorders (5 sources) Vmxyn-mj-sxqrvbg vesicular eczema of hands and feet; Translations: [...] UA Negative Negative - 4(70) +++ mg/dL [facility] Blood, UA Negative Negative - 50 Max/mcL [facility] Clarity, UA Clear [facility] Color, UA Yellow [facility] Glucose, UA Negative Negative - 2000(110) ++++ mg/dL [facility] Interpretation and review of laboratory results Normal [facility] Ketones, UA Negative Negative - 160(16) ++++ mg/dL [facility] Leukocytes, UA Negative Negative - 500+++ John/mcL [facility] Nitrite, UA Negative Negative - Positive [facility] pH, UA 6 5 - 9 [facility] Protein, UA Negative Negative - 2000(20) ++++ mg/dL [facility] Spec Grav, UA 1.01 1 - 1.03 [facility] Urobilinogen, UA 0.2 0.2 - 12 mg/dL [facility] BOX TESTon 04-12-2024 BOX TEST SENT OUT Y [facility] BOX1 UNITY [facility] BOX2 04/12/24 [facility]APID (URINE )on 04-12-2024 AMPHETAMINE SCREEN URINE Negative NEGATIVE [facility] BARBITURATES SCREEN URINE Negative NEGATIVE [facility] BENZODIAZEPINES SCREEN URINE Negative NEGATIVE [facility] BUPRENORPHINE SCREEN URINE Negative NEGATIVE [facility] Comment on above: DRUG CLASS TEST SYST [...] 300 ng/mL CANNABINOID SCREEN URINE Negative NEGATIVE [facility] COCAINE SCREEN URINE Negative NEGATIVE [facility] METHADONE SCREEN URINE Negative NEGATIVE [facility] METHAMPHETAMINES SCREEN URINE Negative NEGATIVE [facility] OPIATE SCREEN URINE Negative NEGATIVE [facility] OXYCODONE SCREEN URINE Negative NEGATIVE [facility] PHENCYCLIDINE SCREEN URINE Negative NEGATIVE [facility] TRICYCLIC ANTIDEPRESSANT URINE Negative NEGATIVE [facility] CLINISYNC [facility] HCG ( test) Ql (U)o n 04-04-2024 Interpretation and review of laboratory results Abnormal [facility] Preg Test, Ur Positive Negative [facility] Urinalysis macro (dipstick) panel (U)on 04-04-2024 Bilirubin, UA Negative Negative - 4(70) +++ mg/dL [facility] Blood, UA Negative Negative - 50 Max/mcL [facility] Clarity, UA Clear [facility] Color, UA Yellow [facility] Glucose, UA Negative Negative - 1999(110) ++++ mg/dL [facility] Interpretation and review of laboratory results Normal [facility] Ketones, UA Negative Negative - 160(16) ++++ mg/dL [facility] Leukocytes, UA Negative Negative - 500+++ John/mcL [facility] Nitrite, UA Negative Negative - Positive [facility] pH, UA 5.5 5 - 9 [facility] Protein, UA Negative Negative - 1999(20) ++++ mg/dL [facility] Spec Grav, UA 1.02 1 - 1.03 [facility] Urobilinogen, UA 1.0 0.2 - 12 mg/dL [facility] C Urineon 03-03-2024 [...] Locations R1: This test was performed at: [facility], [address] [place] [address], [facility]- , [place], [facility] Comment on above: Performed By: #### 2 [id number] #### [facility] [address] [place] [address] Quanton 03-01-2024 HCG.beta subunit Qn 747 m[IU]/mL High 1-3 [facility] Comment on above: Result Comment: 'F N ON < 1 - 3' ' 0.2 - 1 WEEK = 5 TO 50' ' 1 - 2 WEEKS = 50 - 500' ' 2 - 3 WEEKS = 100 - 5000' ' 3 - 4 WEEKS = 500 - 10420' ' 4 - 5 WEEKS = 1000 - 87615' ' 5 - 6 WEEKS = 35717 - 468316' ' 6 - 8 WEEKS = 84039 - 056759' ' 8 - 12 WEEKS = 26174 - 448422' Performed By: #### 2 [id number] #### [facility] [address] [place] [address] CHEMISTRYOrdered By: SYSTEM SYSTEM on 03-01-2024 HCG.beta [...] 3 - 4 WEEKS = 500 - 30999' ' 4 - 5 WEEKS = 1000 - 08542' ' 5 - 6 WEEKS = 59294 - 394940' ' 6 - 8 WEEKS = 40600 - 235155' ' 8 - 12 WEEKS = 82547 - 244539' [facility] Quanton 02-27-2024 HCG.beta subunit Qn 268 m[IU]/mL High 1-3 [facility] Comment on above: Result Comment: 'F N ON < 1 - 3' ' 0.2 - 1 WEEK = 5 TO 50' ' 1 - 2 WEEKS = 50 - 500' ' 2 - 3 WEEKS = 100 - 5000' ' 3 - 4 WEEKS = 500 - 52957' ' 4 - 5 WEEKS = 1000 - 16124' ' 5 - 6 WEEKS = 59213 - 478786' ' 6 - 8 WEEKS = 27832 - 429020' ' 8 - 12 WEEKS = 55718 - 726599' Performed By: #### 2 [id number] #### [facility] [address] [place] [address] [facility] TORN Telephone ([employer]) -- MADHU [id number]) 1985 F Date Time Provider Department 02/27/24 [...] Fully Assessed Reason for Visit: Patient Question [3637] Prescriptions as of 02/28/2024 - enoxaparin (LOVENOX) [...] Status:Closed by NAGA JOHNSON on 02/28/24 [facility] HCG.beta subunit Qn 123 m[IU]/mL High 1-3 [facility] Comment on above: Result Comment: 'F N ON < 1 - 3' ' 0.2 - 1 WEEK = 5 TO 50' ' 1 - 2 WEEKS = 50 - 500' ' 2 - 3 WEEKS = 100 - 5000' ' 3 - 4 WEEKS = 500 - 14710' ' 4 - 5 WEEKS = 1000 - 58746' ' 5 - 6 WEEKS = 88099 - 890516' ' 6 - 8 WEEKS = 02225 - 186777' ' 8 - 12 WEEKS = 11797 - 897238' Performed By: #### 2 [id number] #### [facility] [address] [place] [address] CHEMISTRYOrdered By: SYSTEM SYSTEM on 02-25-2024 HCG.beta [...] 3 - 4 WEEKS = 500 - 79142' ' 4 - 5 WEEKS = 1000 - 71788' ' 5 - 6 WEEKS = 30958 - 411029' ' 6 - 8 WEEKS = 90738 - 865266' ' 8 - 12 WEEKS = 04976 - 460516' [id number] 02-25-2024 HbA1c (Bld) [Mass fraction] 6.0 % High <=5.9 [facility] Comment on above: Performed By: #### 7 [id number] #### [facility] [address] [place] [address] HIV Screen 4th Generation wR fxon 02-24-2024 HIV 1+2 Ab+HIV1 p24 Ag IA Ql Non-Reactive Invalid Interpretation Code Non Reactive [facility] Comment on above: Result Comment: HIV- 1/HIV-2 antibodies and HIV-1 p24 antigen were NOT detected. There is no laboratory evidence of HIV infection. HIV Negative Performed at: [facility] [id number] PhD Jd Montano Performed By: #### 9 [id number] #### [facility] [address] [place] [address] BhCG Quanton 02-23-2024 HCG.beta subunit Qn 52 m[IU]/mL High 1-3 [facility] Comment on above: Result Comment: 'F N ON < 1 - 3' ' 0.2 - 1 WEEK = 5 TO 50' ' 1 - 2 WEEKS = 50 - 500' ' 2 - 3 WEEKS = 100 - 5000' ' 3 - 4 WEEKS = 500 - 67822' ' 4 - 5 WEEKS = 1000 - 18924' ' 5 - 6 WEEKS = 34797 - 400485' ' 6 - 8 WEEKS = 34562 - 624641' ' 8 - 12 WEEKS = 55974 - 974952' Performed By: #### 2 [id number] #### [facility] [address] [place] [address] CHEMISTRYOrdered By: SYSTEM SYSTEM on 02-23-2024 Cholesterol [...] 3 - 4 WEEKS = 500 - 49315' ' 4 - 5 WEEKS = 1000 - 69293' ' 5 - 6 WEEKS = 59736 - 429340' ' 6 - 8 WEEKS = 68517 - 843167' ' 8 - 12 WEEKS = 28906 - 649562' Triglyceride [Mass/Vol] 212 mg/dL High <=149mg/dL Remisol Chem TSH Qn 5.68 m[IU]/L High 0.34 - 5.60 mcIU/mL Rem[facility] Chem CHEMISTRYOrdered By: Chelsey Price on 02-23-2024 HbA1c (Bld) [Mass fraction] 5.9 % Normal <=5.9% [facility] ChemAutoSS [id number] 02-23-2024 HbA1c (Bld) [Mass fraction] 5.9 % Normal <=5.9 [facility] Comment on above: Performed By: #### 7 [id number] #### [facility] [address] [place] [address] Lipid Panelon 02-23-2024 Cholesterol [Mass/Vol] 225 mg/dL High 120-200 [facility] Comment on above: Performed By: #### 2 [id number] #### [facility] [address] [place] [address] Cholesterol in HDL [Mass/Vol] 40 mg/dL Invalid Interpretation Code [facility] Comment on above: Result Comment: '>= 60 LOW RISK' '<= 40 HIGH RISK' Performed By: #### 2 [id number] #### [facility] [address] [place] [address] Cholesterol in LDL [Mass/Vol] 171 mg/dL High <=129 [facility] Comment on above: Performed By: #### 2 [id number] #### [facility] [address] [place] [address] Cholesterol in VLDL [Mass/Vol] 42 mg/dL High 7-40 [facility] Comment on above: Performed By: #### 2 [id number] #### [facility] [address] [place] [address] Triglyceride [Mass/Vol] 212 mg/dL High <=149 [facility] Comment on above: Performed By: #### 2 [id number] #### [facility] [address] [place] [address] TSHon 02-23-2024 TSH Qn 5.68 m[IU]/L High 0.34-5.60 [facility] Comment on above: Performed By: #### 2 [id number] #### [facility] [address] [place] [address] Ambulatory Visit Summaryon 1 Ambulatory Visit Summary Ambulatory Visit Summary MADHU RENDON :1985 Visit Date:02/05/2024 Ambulatory Visit Instructions Your Diagnosis Acute bronchitis due to other specified organisms BMI 35.0-35.9,adult Obesity Antiphospholipid syndrome Gestational diabetes Well adult exam Your Care Team Attending Physician - Evans CASAS DO, FAAFP Primary Care Physician - Evnas CASAS DO, FAAFP This Is Your Medications [...] EST With: Evans CASAS DO, FAAFP Where: [facility] [address] [place] [address]- You Need to Schedule the Following Appointments Follow Up with Evans CASAS DO, FAAFP, FAM, PED When: In 3 months Where: [address] [place] [address]- You Need to Complete the [...] marlee (more content not included)... Normal [facility] Noteon 02-05-2024 Family [...] 40 mg subcu, continue to follow-up with flatwork catcher 5. Gestational diabetes (O24.419: Gestational diabetes mellitus in , unspecified control) Metformin 500 mg daily XR tabs 2/day per DERRICK BUILDER Ordered: HgbA1c HgbA1c HgbA1c HgbA1c 6. Well [...] Tony, CHRIS, PED In 3 months [address] [facility], [address] [place] [phone]- Additional Instructions: Patient Education Acute Bronchitis, Adult Problem List/Past Medical History Ongoing Acute (more content not included)... Normal [facility] Comment on above: Result Comment: Elec tronically [...] Community acquired pneumonia [facility]: [facility] New azithromycin (azithromycin 250 mg Tab 5-day Dose Pack (Z-Jonny)) 1 Packets By Mouth As Directed Community acquired pneumonia Duration: 5 Days as directed on package labeling [facility] Unchanged enoxaparin (Lovenox 40 mg/ [...] physician if questions or concerns Pharmacy Information [facility]: [address] [facility] [place] [id number] [phone] Allergies Milk Products (Illness) ciprofloxacin (Numbness and [...] choosing us for your care. Normal [facility] Noteon 02-02-2024 Family [...] a 38 Years White Female presenting to [facility] with body aches and productive cough [...] puff(s), Inhalation, q6hr, 1 EA, Refill(s) 5, [facility], 168, cm, 02/02/24 14:43:00 EDT, Height/Length Dosing, 101.1, kg, 02/02/24 14:43:00 EDT, Weight Dosing azithromycin, = 1 packet(s), Oral, As Directed, as directed on package labeling, X 5 day(s), # 6 tab(s), Refills(s) 0, Pharmacy: [facility] 1985, 168, cm, 02/02/24 14:43:00 EDT, [...] Bernstein MD, FAM, MED Only if needed [address] [place] [phone] Additional Instructions: Problem List/Past Medical History Ongoing [...] 2000 International_[employer] (more content not included)... Normal [facility] Comment on above: Result Comment: Elec tronically Signed By: Anni Bernstein MD\.br\Date and Time Signed: 02/02/24 15:03 EDT CBC W Auto Differential pane l (Bld)on 01-02-2024 Basophils (Bld) [#/Vol] 10*3/uL Normal <0.11 [facility] Comment on above: Order Comment: Speci men Type: BLOOD SPECIMEN Ordering Facility: [facility] Address: [address] [place] [address] Performed By: #### 5 0190-8, 9, 2275-07, 2283-11 #### [facility] CLIA [id number] [address] [place] [address] [place] Basophils/100 WBC (Bld) 0.3 % Normal [facility] Comment on above: Order Comment: Speci men Type: BLOOD SPECIMEN Ordering Facility: [facility] Address: [address] [place] [address] Performed By: #### 5 0190-8, 9, 2275-07, 2283-11 #### [facility] CLIA [id number] [address] [place] [address] [place] Differential cell count method Nom (Bld) Auto Normal [facility] Comment on above: Order Comment: Speci men Type: BLOOD SPECIMEN Ordering Facility: [facility] Address: [address] [place] [address] Performed By: #### 5 0190-8, 2131-12, 2275-07, 2283-11 #### [facility] CLIA [id number] [address] [place] [address] [place] Eosinophils (Bld) [#/Vol] 0.07 10*3/uL Normal <0.46 [facility] Comment on above: Order Comment: Speci men Type: BLOOD SPECIMEN Ordering Facility: [facility] Address: [address] [place] [address] Performed By: #### 5 0190-8, 2131-12, 2275-07, 2283-11 #### [facility] CLIA [id number] [address] [place] [address] [place] Eosinophils/100 WBC (Bld) 0.9 % Normal [facility] Comment on above: Order Comment: Speci men Type: BLOOD SPECIMEN Ordering Facility: [facility] Address: [address] [place] [address] Performed By: #### 5 0190-8, 2131-12, 2275-07, 2283-11 #### [facility] CLIA [id number] [address] [place] [address] [place] Erythrocyte distribution width (RBC) [Ratio] 13.3 % Normal 11.5-15.0 [facility] Comment on above: Order Comment: Speci men Type: BLOOD SPECIMEN Ordering Facility: [facility] Address: [address] [place] [address] Performed By: #### 5 0190-8, 2131-12, 2275-07, 2283-11 #### [facility] CLIA [id number] [address] [place] [address] [place] Hematocrit (Bld) [Volume fraction] 38.5 % Normal 36.0-46.0 [facility] Comment on above: Order Comment: Speci men Type: BLOOD SPECIMEN Ordering Facility: [facility] Address: [address] [place] [address] Performed By: #### 5 0190-8, 2131-12, 2275-07, 2283-11 #### [facility] CLIA [id number] [address] [place] [address] [place] Hemoglobin (Bld) [Mass/Vol] 13.6 g/dL Normal 11.5-15.5 [facility] Comment on above: Order Comment: Speci men Type: BLOOD SPECIMEN Ordering Facility: [facility] Address: [address] [place] [address] Performed By: #### 5 0190-8, 9, 2275-07, 2283-11 #### [facility] CLIA [id number] [address] [place] [address] [place] Immature granulocytes (Bld) [#/Vol] 0.03 10*3/uL Normal <0.10 [facility] Comment on above: Order Comment: Speci men Type: BLOOD SPECIMEN Ordering Facility: [facility] Address: [address] [place] [address] Performed By: #### 5 0190-8, 2131-12, 2275-07, 2283-11 #### [facility] CLIA [id number] [address] [place] [address] [place] Immature granulocytes/100 WBC (Bld) 0.4 % Normal [facility] Comment on above: Order Comment: Speci men Type: BLOOD SPECIMEN Ordering Facility: [facility] Address: [address] [place] [address] Performed By: #### 5 0190-8, 9, 2275-07, 2283-11 #### [facility] CLIA [id number] [address] [place] [address] [place] Lymphocytes (Bld) [#/Vol] 3.06 10*3/uL Normal 1.00-4.00 [facility] Comment on above: Order Comment: Speci men Type: BLOOD SPECIMEN Ordering Facility: [facility] Address: [address] [place] [address] Performed By: #### 5 0190-8, 9, 2275-07, 2283-11 #### [facility] CLIA [id number] [address] [place] [address] [place] Lymphocytes/100 WBC (Bld) 39.0 % Normal [facility] Comment on above: Order Comment: Speci men Type: BLOOD SPECIMEN Ordering Facility: [facility] Address: [address] [place] [address] Performed By: #### 5 0190-8, 9, 4, 2283-11 #### [facility] CLIA [id number] [address] [place] [address] [place] MCH (RBC) [Entitic mass] 30.8 pg Normal 26.0-34.0 [facility] Comment on above: Order Comment: Speci men Type: BLOOD SPECIMEN Ordering Facility: [facility] Address: [address] [place] [address] Performed By: #### 5 0190-8, 2131-12, 2275-07, 2283-11 #### [facility] CLIA [id number] [address] [place] [address] [place] MCHC (RBC) [Mass/Vol] 35.3 g/dL Normal 30.5-36.0 [facility] Comment on above: Order Comment: Speci men Type: BLOOD SPECIMEN Ordering Facility: [facility] Address: [address] [place] [address] Performed By: #### 5 0190-8, 9, 2275-07, 2283-11 #### [facility] CLIA [id number] [address] [place] [address] [place] MCV (RBC) [Entitic vol] 87.3 fL Normal 80.0-100.0 [facility] Comment on above: Order Comment: Speci men Type: BLOOD SPECIMEN Ordering Facility: [facility] Address: [address] [place] [address] Performed By: #### 5 0190-8, 9, 2275-07, 2283-11 #### [facility] CLIA [id number] [address] [place] [address] [place] Monocytes (Bld) [#/Vol] 0.50 10*3/uL Normal <0.87 [facility] Comment on above: Order Comment: Speci men Type: BLOOD SPECIMEN Ordering Facility: [facility] Address: [address] [place] [address] Performed By: #### 5 0190-8, 9, 2275-4, 8 #### [facility] CLIA [id number] [address] [place] [address] [place] Monocytes/100 WBC (Bld) 6.4 % Normal [facility] Comment on above: Order Comment: Speci men Type: BLOOD SPECIMEN Ordering Facility: [facility] Address: [address] [place] [address] Performed By: #### 5 0190-8, 9, 2275-4, 8 #### [facility] CLIA [id number] [address] [place] [address] [place] Neutrophils (Bld) [#/Vol] 4.17 10*3/uL Normal 1.45-7.50 [facility] Comment on above: Order Comment: Speci men Type: BLOOD SPECIMEN Ordering Facility: [facility] Address: [address] [place] [address] Performed By: #### 5 0190-8, 9, 2275-4, 8 #### [facility] CLIA [id number] [address] [place] [address] [place] Neutrophils/100 WBC (Bld) 53.0 % Normal [facility] Comment on above: Order Comment: Speci men Type: BLOOD SPECIMEN Ordering Facility: [facility] Address: [address] [place] [address] Performed By: #### 5 0190-8, 9, 2275-4, 2283-8 #### [facility] CLIA [id number] [address] [place] [address] [place] Nucleated RBC (Bld) [#/Vol] 10*3/uL Normal <0.01 [facility] Comment on above: Order Comment: Speci men Type: BLOOD SPECIMEN Ordering Facility: [facility] Address: [address] [place] [address] Performed By: #### 5 0190-8, 2131-9, 2275-4, 8 #### [facility] CLIA [id number] [address] [place] [address] [place] Nucleated RBC/100 WBC (Bld) [Ratio] 0.0 /100 WBC Normal [facility] Comment on above: Order Comment: Speci men Type: BLOOD SPECIMEN Ordering Facility: [facility] Address: [address] [place] [address] Performed By: #### 5 0190-8, 2131-9, 4, 8 #### [facility] CLIA [id number] [address] [place] [address] [place] Platelet mean volume (Bld) [Entitic vol] 9.8 fL Normal 9.0-12.7 [facility] Comment on above: Order Comment: Speci men Type: BLOOD SPECIMEN Ordering Facility: [facility] Address: [address] [place] [address] Performed By: #### 5 0190-8, 2131-9, 4, 8 #### [facility] CLIA [id number] [address] [place] [address] [place] Platelets (Bld) [#/Vol] 330 10*3/uL Normal 150-400 [facility] Comment on above: Order Comment: Speci men Type: BLOOD SPECIMEN Ordering Facility: [facility] Address: [address] [place] [address] Performed By: #### 5 0190-8, 2131-9, 2275-4, 8 #### [facility] CLIA [id number] [address] [place] [address] [place] RBC (Bld) [#/Vol] 4.41 10*6/uL Normal 3.90-5.20 [facility] Comment on above: Order Comment: Speci men Type: BLOOD SPECIMEN Ordering Facility: [facility] Address: [address] [place] [address] Performed By: #### 5 0190-8, 2-9, 6-4, 4-8 #### [facility] CLIA [id number] [address] [place] [address] [place] WBC (Bld) [#/Vol] 7.85 10*3/uL Normal 3.70-11.00 [facility] Comment on above: Order Comment: Speci men Type: BLOOD SPECIMEN Ordering Facility: [facility] Address: [address] [place] [address] Performed By: #### 5 0190-8, 2-9, 6-4, 2283-8 #### [facility] CLIA [id number] [address] [place] [address] [place] CNOVSPon 01-02-2024 CNOVSP Visit (SP) Office ([facility]) -- MADHU RENDON ([id number]) 1985 F Date Time Provider Department 01/02/24 1:45 PM SALVADOR CALIX During your visit today, we recorded the following information about you: Temperature Pulse Respiration Blood pressure 97.1 degrees 91/minute 16/minute 128/81 Weight Height Last Period 102.7 kg 1.677 m 12/22/23 Salvador Calix MD 01/04/2024 12:54 PM Signed NAME: Madhu Rendon CLINIC NO.: [id number] DATE OF SERVICE: January 02, 2024 (Levon) [...] later in 2018. These were found in [place], [place]. I don't have access to these [...] a target-like rash shortly before presenting to [facility] in 2016 with headaches and was diagnosed [...] soon. When she had a stroke in [place], she had symptoms up to a month [...] weak, uri (more content not included)... Normal [facility] CNPNon 01-02-2024 CNPN Telephone (NCCAP) -- JUSTICEMADHU ([id number]) 1985 F Date Time Provider Department 01/02/24 [facility] During your visit today, we recorded the [...] on, along with call back number on [employer]. Valeri Yan RN Allergies As of Date: [...] Status:Closed by VALERI YAN on 01/07/24 Normal [facility] Comprehensive metabolic 2000 panelon 01-02-2024 Albumin [Mass/Vol] 4.9 g/dL Normal 3.9-4.9 [facility] Comment on above: Order Comment: Cesar redd Type: BLOOD SPECIMEN Ordering Facility: [facility] Address: [address] [place] [address] Performed By: #### 5 0190-8, 2132-9, 2276-4, 2284-8 #### [facility] CLIA [id number] [address] [place], [place] [address] [address] [place] ALP [Catalytic activity/Vol] 71 U/L Normal 34-123 [facility] Comment on above: Order Comment: Cesar redd Type: BLOOD SPECIMEN Ordering Facility: [facility] Address: [address] [place] [address] Performed By: #### 5 0190-8, 9, 2275-4, 8 #### [facility] CLIA [id number] [address] [place] [address] [place] ALT [Catalytic activity/Vol] 22 U/L Normal 7-38 [facility] Comment on above: Order Comment: Speci men Type: BLOOD SPECIMEN Ordering Facility: [facility] Address: [address] [place] [address] Performed By: #### 5 0190-8, 9, 2275-4, 8 #### [facility] CLIA [id number] [address] [place] [address] [place] Anion gap [Moles/Vol] 12 mmol/L Normal 8-15 [facility] Comment on above: Order Comment: Speci men Type: BLOOD SPECIMEN Ordering Facility: [facility] Address: [address] [place] [address] Performed By: #### 5 0190-8, 9, 4, 8 #### [facility] CLIA [id number] [address] [place] [address] [place] AST [Catalytic activity/Vol] 18 U/L Normal 13-35 [facility] Comment on above: Order Comment: Speci men Type: BLOOD SPECIMEN Ordering Facility: [facility] Address: [address] [place] [address] Performed By: #### 5 0190-8, 9, 4, 8 #### [facility] CLIA [id number] [address] [place] [address] [place] Bilirubin [Mass/Vol] 0.3 mg/dL Normal 0.2-1.3 [facility] Comment on above: Order Comment: Speci men Type: BLOOD SPECIMEN Ordering Facility: [facility] Address: [address] [place] [address] Performed By: #### 5 0190-8, 9, 2275-4, 2283-11 #### [facility] CLIA [id number] [address] [place] [address] [place] Calcium [Mass/Vol] 9.9 mg/dL Normal 8.5-10.2 [facility] Comment on above: Order Comment: Speci men Type: BLOOD SPECIMEN Ordering Facility: [facility] Address: [address] [place], [place] [address] Performed By: #### 5 0190-8, 9, 4, 2283-11 #### [facility] CLIA [id number] [address] [place] [address] [place] Chloride [Moles/Vol] 100 mmol/L Normal 98-107 [facility] Comment on above: Order Comment: Speci men Type: BLOOD SPECIMEN Ordering Facility: [facility] Address: [address] [place] [address] Performed By: #### 5 0190-8, 9, 4, 2283-11 #### [facility] CLIA [id number] [address] [place] [address] [place] CO2 [Moles/Vol] 24 mmol/L Normal 22-30 [facility] Comment on above: Order Comment: Speci men Type: BLOOD SPECIMEN Ordering Facility: [facility] Address: [address] [place] [address] Performed By: #### 5 0190-8, 9, 4, 2283-11 #### [facility] CLIA [id number] [address] [place] [address] [place] Creatinine [Mass/Vol] 0.84 mg/dL Normal 0.58-0.96 [facility] Comment on above: Order Comment: Speci men Type: BLOOD SPECIMEN Ordering Facility: [facility] Address: [address] [place] [address] Performed By: #### 5 0190-8, 2131-9, 2275-4, 2283-11 #### [facility] CLIA [id number] [address] [place] [address] [place] Creatinine and Glomerular filtration rate.predicted panel (S/P/Bld) 91 mL/min/1.73m??? Normal >=60 [facility] Comment on above: Order Comment: Cesar redd Type: BLOOD SPECIMEN Ordering Facility: [facility] Address: [address] [place] [address] Result Comment: Hawa mated Glomerular Filtration Rate [...] #### 5 0190-8, 9, 2275-07, 2283-11 #### [facility] CLIA [id number] [address] [place] [address] [place] Glucose [Mass/Vol] 84 mg/dL Normal 74-99 [facility] Comment on above: Order Comment: Cesar redd Type: BLOOD SPECIMEN Ordering Facility: [facility] Address: [address] [place] [address] Result Comment: The [place] [employer] (ADA) provides guidance for cutoff [...] Standards of Medical Care in Diabetes 2016, [place] [employer]. Diabetes Care. 2016.39(Suppl 1). Performed By: #### 5 0190-8, 9, 2275-4, 8 #### [facility] CLIA [id number] [address] [place] [address] [place] Potassium [Moles/Vol] 3.5 mmol/L Low 3.7-5.1 [facility] Comment on above: Order Comment: Speci men Type: BLOOD SPECIMEN Ordering Facility: [facility] Address: [address] [place] [address] Performed By: #### 5 0190-8, 9, 2275-4, 8 #### [facility] CLIA [id number] [address] [place] [address] [place] Protein [Mass/Vol] 7.3 g/dL Normal 6.3-8.0 [facility] Comment on above: Order Comment: Speci men Type: BLOOD SPECIMEN Ordering Facility: [facility] Address: [address] [place] [address] Performed By: #### 5 0190-8, 9, 4, 8 #### [facility] CLIA [id number] [address] [place] [address] [place] Sodium [Moles/Vol] 136 mmol/L Normal 136-144 [facility] Comment on above: Order Comment: Speci men Type: BLOOD SPECIMEN Ordering Facility: [facility] Address: [address] [place] [address] Performed By: #### 5 0190-8, 9, 4, 8 #### [facility] CLIA [id number] [address] [place] [address] [place] Urea nitrogen [Mass/Vol] 8 mg/dL Normal 7-21 [facility] Comment on above: Order Comment: Speci men Type: BLOOD SPECIMEN Ordering Facility: [facility] Address: [address] [place] [address] Performed By: #### 5 0190-8, 9, 4, 2283-11 #### [facility] CLIA [id number] [address] [place] [address] [place] Ferritin SerPl-[facility] 2023 Ferritin [Mass/Vol] 261.0 ng/mL High 14.7-205.1 [facility] Comment on above: Order Comment: Speci men Type: BLOOD SPECIMEN Ordering Facility: [facility] Address: [address] [place] [address] Performed By: #### 5 0190-8, 9, 2275-07, 2283-11 #### [facility] CLIA [id number] [address] [place] [address] [place] Folate SerP-[facility] 01-02-20 Folate [Mass/Vol] 17.2 ng/mL Normal >4.7 [facility] Comment on above: Order Comment: Speci men Type: BLOOD SPECIMEN Ordering Facility: [facility] Address: [address] [place] [address] Performed By: #### 5 0190-8, 9, 2275-07, 2283-11 #### [facility] CLIA [id number] [address] [place] [address] [place] Iron and Iron binding capaci ty panelon 01-02-2024 Iron [Mass/Vol] 66 ug/dL Normal 41-186 [facility] Comment on above: Order Comment: Speci men Type: BLOOD SPECIMEN Ordering Facility: [facility] Address: [address] [place] [address] Performed By: #### 5 0190-8, 9, 2275-07, 2283-11 #### [facility] CLIA [id number] [address] [place] [address] [place] Iron binding capacity [Mass/Vol] 354 ug/dL Normal 232-386 [facility] Comment on above: Order Comment: Speci men Type: BLOOD SPECIMEN Ordering Facility: [facility] Address: [address] [place] [address] [place] [address] Performed By: #### 5 0190-8, 2131-12, 2275-07, 2283-11 #### [facility] CLIA [id number] [address] [place] [address] [place] Iron/TIBC [Molar ratio] 18.6 % Normal 15.0-57.0 [facility] Comment on above: Order Comment: Speci men Type: BLOOD SPECIMEN Ordering Facility: [facility] Address: [address] [place] [address] Performed By: #### 5 0190-8, 2131-12, 2275-07, 2283-11 #### [facility] CLIA [id number] [address] [place] [address] [place] Vit B12 [facility] 024 Cobalamin (Vitamin B12) [Mass/Vol] 460 pg/mL Normal 232-1245 [facility] Comment on above: Order Comment: Speci men Type: BLOOD SPECIMEN Ordering Facility: [facility] Address: [address] [place] [address] Performed By: #### 5 0190-8, 2131-12, 2275-07, 2283-11 #### [facility] CLIA [id number] [address] [place] [address] [place] Sisi 12-17-2023 TORN Telephone (ROD) -- MADHU RENDON ([id number]) 1985 F Date Time Provider Department 12/17/23 [...] Status:Closed by NAGA JOHNSON on 12/17/23 Normal [facility] MRI Brain w/o Contraston MRI Brain [...] MD Transcribed by: LINDY Technologist: ALEXSANDRA Normal [facility] Cortisolon 12-08-2023 Cortisol [Mass/Vol] 12.5 microgram/dL Invalid Interpretation Code 6.2-19.4 [facility] Comment on above: Result Comment: Yolanda davis Note: The reference interval and flagging for this test is for an AM collection. If this is a PM collection please use: Cortisol PM: 2.3-11.9 Performed at: [facility] [address] [id number] PhD Jd Montano Performed By: #### 2 [id number] #### [facility] [address] [place] [address] T3 Freeon 12-08-2023 Free T3 [Mass/Vol] 2.5 pg/mL Invalid Interpretation Code 2.0-4.4 [facility] Comment on above: Result Comment: Perf ormed at: [facility] [address] [id number] PhD Jd Montano Performed By: #### 2 [id number] #### [facility] [address] [place] [address] Amylaseon 12-06-2023 Amylase [Catalytic activity/Vol] 38 U/L Normal 25-157 [facility] Comment on above: Performed By: #### 2 [id number] #### [facility] [address] [place] [address] CHEMISTRYOrdered By: SYSTEM SYSTEM on 12-06-2023 Amylase [...] 12-06-2023 CRP [Mass/Vol] 0.2 mg/dL Normal <=1.9 [facility] Comment on above: Performed By: #### 2 [id number] #### [facility] [address] [place] [address] Free T4on 12-06-2023 Free T4 [Mass/Vol] 0.58 ng/dL Normal 0.58-1.64 [facility] Comment on above: Performed By: #### 2 [id number] #### [facility] [address] [place] [address] HEMATOLOGYOrdered By: Isha Zheng on 12-06-2023 ESR (Bld) [Velocity] 18 mm/h Normal 0 - 34 mm/hr [facility] HemeAutoSS Sed Rate Automatedon 024 ESR (Bld) [Velocity] 18 mm/h Normal 0-34 [facility] Comment on above: Performed By: #### 1 [id number] #### [facility] [address] [place] [address] TSHon 12-06-2023 TSH Qn 4.97 m[IU]/L Normal 0.34-5.60 [facility] Comment on above: Performed By: #### 2 [id number] #### [facility] [address] [place] [address] Vit B12on 12-06-2023 Cobalamin (Vitamin B12) [Mass/Vol] 328 pg/mL Normal 50-1500 [facility] Comment on above: Performed By: #### 2 [id number] #### [facility] [address] [place] [address] CNPNon 11-15-2023 CNPN Telephone (HEMTSA) -- JUSTICEMADHU ([id number]) 1985 F Date Time Provider Department 11/15/23 [...] Status:Closed by SAMUEL SANABRIA on 11/15/23 Normal [facility] Office/Clini c Noteon 11-09-2023 Family Medicine [...] Iron deficiency) Mild, as reported by her flatwork catcher, labs from 2022 appear normal 6. Pre-diabetes (R73.03: Prediabetes) Last A1c Continue metformin Nutrition: - Maintain optimal weight - Calorie restriction - Plant-based diet; high polyunsatur (more content not included)... Normal [facility] Comment on above: Result Comment: Elec tronically Signed By: Monica Keyes\.br\Date and Time Signed: 11/09/23 15:56 EDT Sisi 11-05-2023 [facility] MADHU RENDON ([id number]) 1985 F Date Time Provider Department 11/05/23 SAL[facility]ADOR CALIX [facility] During your visit today, we recorded the following information about you: Harjit Haskins 11/05/2023 12:47 PM Signed ----- Message from Naga Johnson RN sent at 11/05/2023 11:53 AM EDT ----- ----- Message ----- From: Salvador Calix MD Sent: 11/05/2023 11:33 AM EDT To: [facility] Triage Pool; [facility] Clerical Pool Perry Isidro - looks like [...] Status:Closed by NAGA JOHNSON on 11/06/23 Normal [facility] 25(OH)D3 SerPl-mCncon 2023 25-hydroxyvitamin D3 [Mass/Vol] 30.5 ng/mL Low 31.0-80.0 [facility] Comment on above: Order Comment: Speci men Type: BLOOD SPECIMEN Ordering Facility: [facility] Address: [address] [place] [address] Performed By: #### 5 0190-8, 9, 2275-07, 2283-11 #### [facility] CLIA [id number] [address] [place] [address] [place] CBC W Auto Differential pane l (Bld)on 10-29-2023 Basophils (Bld) [#/Vol] 0.05 10*3/uL Normal <0.11 [facility] Comment on above: Order Comment: Speci men Type: BLOOD SPECIMEN Ordering Facility: [facility] Address: [address] [place] [address] Performed By: #### 5 0190-8, 2131-12, 2275-07, 2283-11 #### [facility] CLIA [id number] [address] [place] [address] [place] Basophils/100 WBC (Bld) 0.6 % Normal [facility] Comment on above: Order Comment: Speci men Type: BLOOD SPECIMEN Ordering Facility: [facility] Address: [address] [place] [address] Performed By: #### 5 0190-8, 2131-12, 2275-07, 2283-11 #### [facility] CLIA [id number] [address] [place] [address] [place] Differential cell count method Nom (Bld) Auto Normal [facility] Comment on above: Order Comment: Speci men Type: BLOOD SPECIMEN Ordering Facility: [facility] Address: [address] [place] [address] Performed By: #### 5 0190-8, 2131-12, 2275-07, 2283-11 #### [facility] CLIA [id number] [address] [place] [address] [place] Eosinophils (Bld) [#/Vol] 0.06 10*3/uL Normal <0.46 [facility] Comment on above: Order Comment: Speci men Type: BLOOD SPECIMEN Ordering Facility: [facility] Address: [address] [place] [address] Performed By: #### 5 0190-8, 9, 2275-07, 2283-11 #### [facility] CLIA [id number] [address] [place] [address] [place] Eosinophils/100 WBC (Bld) 0.8 % Normal [facility] Comment on above: Order Comment: Speci men Type: BLOOD SPECIMEN Ordering Facility: [facility] Address: [address] [place] [address] Performed By: #### 5 0190-8, 9, 2275-07, 2283-11 #### [facility] CLIA [id number] [address] [place] [address] [place] Erythrocyte distribution width (RBC) [Ratio] 13.2 % Normal 11.5-15.0 [facility] Comment on above: Order Comment: Speci men Type: BLOOD SPECIMEN Ordering Facility: [facility] Address: [address] [place] [address] Performed By: #### 5 0190-8, 9, 2275-07, 2283-11 #### [facility] CLIA [id number] [address] [place] [id number] [place] Hematocrit (Bld) [Volume fraction] 39.0 % Normal 36.0-46.0 [facility] Comment on above: Order Comment: Speci men Type: BLOOD SPECIMEN Ordering Facility: [facility] Address: [address] [place] [address] Performed By: #### 5 0190-8, 9, 2275-07, 2283-11 #### [facility] CLIA [id number] [address] [place] [address] [place] Hemoglobin (Bld) [Mass/Vol] 12.9 g/dL Normal 11.5-15.5 [facility] Comment on above: Order Comment: Speci men Type: BLOOD SPECIMEN Ordering Facility: [facility] Address: [address] [place] [address] Performed By: #### 5 0190-8, 9, 2275-07, 2283-11 #### [facility] CLIA [id number] [address] [place] [address] [place] Immature granulocytes (Bld) [#/Vol] 10*3/uL Normal <0.10 [facility] Comment on above: Order Comment: Speci men Type: BLOOD SPECIMEN Ordering Facility: [facility] Address: [address] [place] [address] Performed By: #### 5 0190-8, 2131-12, 2275-07, 2283-11 #### [facility] CLIA [id number] [address] [place] [address] [place] Immature granulocytes/100 WBC (Bld) 0.3 % Normal [facility] Comment on above: Order Comment: Speci men Type: BLOOD SPECIMEN Ordering Facility: [facility] Address: [address] [place] [address] Performed By: #### 5 0190-8, 2131-12, 2275-07, 2283-11 #### [facility] [facility] CLIA [id number] [address] [place] [address] [place] Lymphocytes (Bld) [#/Vol] 3.05 10*3/uL Normal 1.00-4.00 [facility] Comment on above: Order Comment: Speci men Type: BLOOD SPECIMEN Ordering Facility: [facility] Address: [address] [place] [address] Performed By: #### 5 0190-8, 2131-12, 2275-07, 2283-11 #### [facility] CLIA [id number] [address] [place] [address] [place] Lymphocytes/100 WBC (Bld) 38.3 % Normal [facility] Comment on above: Order Comment: Speci men Type: BLOOD SPECIMEN Ordering Facility: [facility] Address: [address] [place] [address] Performed By: #### 5 0190-8, 2131-12, 2275-07, 2283-11 #### [facility] CLIA [id number] [address] [place] [address] [place] MCH (RBC) [Entitic mass] 29.2 pg Normal 26.0-34.0 [facility] Comment on above: Order Comment: Speci men Type: BLOOD SPECIMEN Ordering Facility: [facility] Address: [address] [place] [address] Performed By: #### 5 0190-8, 2131-12, 2275-07, 2283-11 #### [facility] CLIA [id number] [address] [place] [address] [place] MCHC (RBC) [Mass/Vol] 33.1 g/dL Normal 30.5-36.0 [facility] Comment on above: Order Comment: Speci men Type: BLOOD SPECIMEN Ordering Facility: [facility] Address: [address] [place] [address] Performed By: #### 5 0190-8, 2131-12, 2275-07, 2283-11 #### [facility] CLIA [id number] [address] [place] [address] [place] MCV (RBC) [Entitic vol] 88.2 fL Normal 80.0-100.0 [facility] Comment on above: Order Comment: Speci men Type: BLOOD SPECIMEN Ordering Facility: [facility] Address: [address] [place] [address] Performed By: #### 5 0190-8, 9, 2275-4, 8 #### [facility] CLIA [id number] [address] [place] [address] [place] Monocytes (Bld) [#/Vol] 0.63 10*3/uL Normal <0.87 [facility] Comment on above: Order Comment: Speci men Type: BLOOD SPECIMEN Ordering Facility: [facility] Address: [address] [place] [address] Performed By: #### 5 0190-8, 9, 4, 2283-11 #### [facility] CLIA [id number] [address] [place] [address] [place] Monocytes/100 WBC (Bld) 7.9 % Normal [facility] Comment on above: Order Comment: Speci men Type: BLOOD SPECIMEN Ordering Facility: [facility] Address: [address] [place] [address] Performed By: #### 5 0190-8, 9, 4, 8 #### [facility] CLIA [id number] [address] [place] [address] [place] Neutrophils (Bld) [#/Vol] 4.15 10*3/uL Normal 1.45-7.50 [facility] Comment on above: Order Comment: Speci men Type: BLOOD SPECIMEN Ordering Facility: [facility] Address: [address] [place] [address] Performed By: #### 5 0190-8, 9, 4, 2283-11 #### [facility] CLIA [id number] [address] [place] [address] [place] Neutrophils/100 WBC (Bld) 52.1 % Normal [facility] Comment on above: Order Comment: Speci men Type: BLOOD SPECIMEN Ordering Facility: [facility] Address: [address] [place] [address] Performed By: #### 5 0190-8, 2131-9, 2275-4, 2283-8 #### [facility] CLIA [id number] [address] [place] [address] [place] Nucleated RBC (Bld) [#/Vol] 10*3/uL Normal <0.01 [facility] Comment on above: Order Comment: Speci men Type: BLOOD SPECIMEN Ordering Facility: [facility] Address: [address] [place] [address] Performed By: #### 5 0190-8, 2131-9, 2275-4, 8 #### [facility] CLIA [id number] [address] [place] [address] [place] Nucleated RBC/100 WBC (Bld) [Ratio] 0.0 /100 WBC Normal [facility] Comment on above: Order Comment: Speci men Type: BLOOD SPECIMEN Ordering Facility: [facility] Address: [address] [place] [address] Performed By: #### 5 0190-8, 2131-9, 2275-4, 8 #### [facility] CLIA [id number] [address] [place] [address] [place] Platelet mean volume (Bld) [Entitic vol] 9.8 fL Normal 9.0-12.7 [facility] Comment on above: Order Comment: Speci men Type: BLOOD SPECIMEN Ordering Facility: [facility] Address: [address] [place] [address] Performed By: #### 5 0190-8, 2131-9, 2275-4, 8 #### [facility] CLIA [id number] [address] [place] [address] [place] Platelets (Bld) [#/Vol] 381 10*3/uL Normal 150-400 [facility] Comment on above: Order Comment: Speci men Type: BLOOD SPECIMEN Ordering Facility: [facility] Address: [address] [place] [address] Performed By: #### 5 0190-8, 2131-9, 2275-4, 8 #### [facility] CLIA [id number] [address] [place] [address] [place] RBC (Bld) [#/Vol] 4.42 10*6/uL Normal 3.90-5.20 [facility] Comment on above: Order Comment: Speci men Type: BLOOD SPECIMEN Ordering Facility: [facility] Address: [address] [place] [address] Performed By: #### 5 0190-8, 2131-9, 2275-4, 8 #### [facility] CLIA [id number] [address] [place] [address] [place] WBC (Bld) [#/Vol] 7.96 10*3/uL Normal 3.70-11.00 [facility] Comment on above: Order Comment: Speci men Type: BLOOD SPECIMEN Ordering Facility: [facility] Address: [address] [place] [address] Performed By: #### 5 0190-8, 2131-9, 2275-, 8 #### [facility] CLIA [id number] [address] [place] [address] [place] Calcium.ionized [Moles/Vol]o n 10-29-2023 Calcium.ionized (Bld) [Mass/Vol] 1.29 mmol/L Normal 1.08-1.30 [facility] Comment on above: Order Comment: Speci men Type: BLOOD SPECIMENOrdering Facility: [facility] Address: [address] [place] [address] Performed By: #### 1 995-0 ####[facility] [id number] [place] [address] [place] Calcium.ionized adjusted to pH 7.4 (Bld) [Moles/Vol] 1.25 mmol/L Normal 1.08-1.30 [facility] Comment on above: Order Comment: Speci men Type: BLOOD SPECIMENOrdering Facility: [facility] Address: [address] [place] [address] Performed By: #### 1 995-0 ####[facility] [id number] [place] [id number] [place] Comprehensive metabolic 2000 panelon 10-29-2023 Albumin [Mass/Vol] 4.7 g/dL Normal 3.9-4.9 [facility] Comment on above: Order Comment: Speci men Type: BLOOD SPECIMEN Ordering Facility: [facility] Address: [address] [place] [address] Performed By: #### 5 0190-8, 9, 2275-07, 2283-11 #### [facility] CLIA [id number] [address] [place] [address] [place] ALP [Catalytic activity/Vol] 77 U/L Normal 34-123 [facility] Comment on above: Order Comment: Speci men Type: BLOOD SPECIMEN Ordering Facility: [facility] Address: [address] [place] [address] Performed By: #### 5 0190-8, 9, 2275-07, 2283-11 #### [facility] CLIA [id number] [address] [place] [address] [place] ALT [Catalytic activity/Vol] 24 U/L Normal 7-38 [facility] Comment on above: Order Comment: Speci men Type: BLOOD SPECIMEN Ordering Facility: [facility] Address: [address] [place] [address] Performed By: #### 5 0190-8, 9, 2275-07, 2283-11 #### [facility] CLIA [id number] [address] [place], [place] [address] [place] Anion gap [Moles/Vol] 12 mmol/L Normal 8-15 [facility] Comment on above: Order Comment: Speci men Type: BLOOD SPECIMEN Ordering Facility: [facility] Address: [address] [place] [address] Performed By: #### 5 0190-8, 2131-12, 2275-07, 2283-11 #### [facility] CLIA [id number] [address] [place] [address] [place] AST [Catalytic activity/Vol] 20 U/L Normal 13-35 [facility] Comment on above: Order Comment: Speci men Type: BLOOD SPECIMEN Ordering Facility: [facility] Address: [address] [place] [address] Performed By: #### 5 0190-8, 2131-12, 2275-07, 2283-11 #### [facility] CLIA [id number] [address] [place] [address] [place] Bilirubin [Mass/Vol] mg/dL Low 0.2-1.3 [facility] Comment on above: Order Comment: Speci men Type: BLOOD SPECIMEN Ordering Facility: [facility] Address: [address] [place] [address] Performed By: #### 5 0190-8, 2131-12, 2275-07, 2283-11 #### [facility] CLIA [id number] [address] [place] [address] [place] Calcium [Mass/Vol] 9.8 mg/dL Normal 8.5-10.2 [facility] Comment on above: Order Comment: Speci men Type: BLOOD SPECIMEN Ordering Facility: [facility] Address: [address] [place] [address] Performed By: #### 5 0190-8, 2131-12, 2275-07, 2283-11 #### [facility] CLIA [id number] [address] [place] [address] [place] Chloride [Moles/Vol] 102 mmol/L Normal 98-107 [facility] Comment on above: Order Comment: Speci men Type: BLOOD SPECIMEN Ordering Facility: [facility] Address: [address] [place] [address] Performed By: #### 5 0190-8, 2131-12, 2275-07, 2283-11 #### [facility] CLIA [id number] [address] [place] [address] [place] CO2 [Moles/Vol] 23 mmol/L Normal 22-30 [facility] Comment on above: Order Comment: Speci men Type: BLOOD SPECIMEN Ordering Facility: [facility] Address: [address] [place] [address] Performed By: #### 5 0190-8, 2131-12, 2275-07, 2283-11 #### [facility] CLIA [id number] [address] [place] [address] [place] Creatinine [Mass/Vol] 0.86 mg/dL Normal 0.58-0.96 [facility] Comment on above: Order Comment: Speci men Type: BLOOD SPECIMEN Ordering Facility: [facility] Address: [address] [place] [address] Performed By: #### 5 0190-8, 2131-12, 2275-07, 2283-11 #### [facility] CLIA [id number] [address] [place] [address] [place] Creatinine and Glomerular filtration rate.predicted panel (S/P/Bld) 89 mL/min/1.73m??? Normal >=60 [facility] Comment on above: Order Comment: Speci men Type: BLOOD SPECIMEN Ordering Facility: [facility] Address: [address] [place] [address] Result Comment: Hawa mated Glomerular Filtration Rate [...] #### 5 0190-8, 2131-12, 2275-07, 2283-11 #### [facility] CLIA [id number] [address] [place] [address] [place] Glucose [Mass/Vol] 62 mg/dL Low 74-99 [facility] Comment on above: Order Comment: Cesar redd Type: BLOOD SPECIMEN Ordering Facility: [facility] Address: [address] [place] [address] Result Comment: The [place] [employer] (ADA) provides guidance for cutoff [...] Standards of Medical Care in Diabetes 2016, [place] [employer]. Diabetes Care. 2016.39(Suppl 1). Performed By: #### 5 0190-8, 2131-12, 2275-07, 2283-11 #### [facility] CLIA [id number] [address] [place] [address] [place] Potassium [Moles/Vol] 4.4 mmol/L Normal 3.7-5.1 [facility] Comment on above: Order Comment: Cesar redd Type: BLOOD SPECIMEN Ordering Facility: [facility] Address: [address] [place] [address] Performed By: #### 5 0190-8, 2131-12, 2275-07, 2283-11 #### [facility] CLIA [id number] [address] [place] [address] [place] Protein [Mass/Vol] 7.5 g/dL Normal 6.3-8.0 [facility] Comment on above: Order Comment: Speci men Type: BLOOD SPECIMEN Ordering Facility: [facility] Address: [address] [place] [address] Performed By: #### 5 0190-8, 2131-12, 2275-07, 2283-11 #### [facility] CLIA [id number] [address] [place] [address] [place] Sodium [Moles/Vol] 137 mmol/L Normal 136-144 [facility] Comment on above: Order Comment: Speci men Type: BLOOD SPECIMEN Ordering Facility: [facility] Address: [address] [place] [address] Performed By: #### 5 0190-8, 2131-12, 2275-07, 2283-11 #### [facility] CLIA [id number] [address] [place] [address] [place] Urea nitrogen [Mass/Vol] 10 mg/dL Normal 7-21 [facility] Comment on above: Order Comment: Speci men Type: BLOOD SPECIMEN Ordering Facility: [facility] Address: [address] [place] [address] Performed By: #### 5 0190-8, 2131-12, 2275-07, 2283-11 #### [facility] CLIA [id number] [address] [place] [address] [place] Ferritin SerPl-mCncon 2023 Ferritin [Mass/Vol] 62.7 ng/mL Normal 14.7-205.1 [facility] Comment on above: Order Comment: Speci men Type: BLOOD SPECIMEN Ordering Facility: [facility] Address: [address] [place] [address] Performed By: #### 5 0190-8, 2131-12, 2275-07, 2283-11 #### [facility] CLIA [id number] [address] [place] [address] [place] Folate SerPl-mCncon 10-29-19 24 Folate [Mass/Vol] ng/mL Normal >4.7 [facility] Comment on above: Order Comment: Cesar redd Type: BLOOD SPECIMENOrdering Facility: [facility] Address: [address] [place] [address] Result Comment: A re sult of > 20 ng/mL is not necessarily indicative of a pathologic or treatable condition: it reflects a limitation of the test methodology. Assay reference range: 4.8 to 24.2 ng/mL. Suitable for detection of folate deficiency. Reference: Folate III (Folate III) [package insert V 1.0 [place]]. [facility], [place], [place]: February 2015. Performed By: #### 2 132-9, 2284-8, 2731-8 ####[facility] [id number] [place] [address] [place] Iron and Iron binding capaci [facility] 10-29-2023 Iron [Mass/Vol] 51 ug/dL Normal 41-186 [facility] Comment on above: Order Comment: Jenniferi tramaine Type: BLOOD SPECIMEN Ordering Facility: [facility] Address: [address] [place] [address] Performed By: #### 5 0190-8, 213-9, 2275-4, 8 #### [facility] CLIA [id number] [address] [place] [address] [place] Iron binding capacity [Mass/Vol] 390 ug/dL High 232-386 [facility] Comment on above: Order Comment: Jenniferi men Type: BLOOD SPECIMEN Ordering Facility: [facility] Address: [address] [place] [address] Performed By: #### 5 0190-8, 9, 4, 8 #### [facility] CLIA [id number] [address] [place] [address] [place] Iron/TIBC [Molar ratio] 13.1 % Low 15.0-57.0 [facility] Comment on above: Order Comment: Speci men Type: BLOOD SPECIMEN Ordering Facility: [facility] Address: [address] [place] [address] Performed By: #### 5 0190-8, 2132-9, 2276-4, 2283-8 #### [facility] CLIA [id number] [address] [place] [address] [place] PTH-Intact [facility] 07-0 Parathyrin.intact [Mass/Vol] 57 pg/mL Normal 15-65 [facility] Comment on above: Order Comment: Speci men Type: BLOOD SPECIMENOrdering Facility: [facility] Address: [address] [place] [address] Performed By: #### 2 132-9, 2283-8, 2730-8 ####[facility] [id number] [address] [place] Vit B12 [facility] 024 Cobalamin (Vitamin B12) [Mass/Vol] 499 pg/mL Normal 232-1245 [facility] Comment on above: Order Comment: Speci men Type: BLOOD SPECIMENOrdering Facility: [facility] Address: [address] [place] [address] Performed By: #### 2 132-9, 2283-8, 8 ####[facility] [id number] [place] [address] [place] Physician Referralon 024 Physician Referral [id number] Normal [facility] Ambulatory Visit Summaryon 0 10-23-2023 Ambulatory Visit [...] (Vitamin D) fluticasone nasal (Flonase 0.05 mg/inh [place]) metformin (MetFORMIN (Eqv-Glucophage XR) 500 mg oral [...] EDT With: Evans CASAS DO, FAAFP Where: [facility] Normal [facility] Family Medicine Office/Clini c Noteon 10-23-2023 Family [...] Mouth: mucous membranes pink, moist and intact. Kelly posterior oropharynx, no palatal inflammation, uvula midline, [...] 106.2, kg, 10/23/23 16:55:00 EDT, Weight Dosing [facility] External Ambulatory Referral 2. Nasal polyps (J33.9: Nasal polyp, unspecified) pt reported - moved before previous ENT could perform surgery - submitted new referral at this time Ordered: [facility] External Ambulatory Referral 3. Deviated septum (J34.2: Deviated nasal septum) pt reported - moved before previous ENT could perform surgery - see #2 Ordered: [facility] External Ambulatory Referral 4. BMI 37.0-37.9, adult [...] Obesity ( (more content not included)... Normal [facility] Comment on above: Result Comment: Elec tronically [...] specializes in ear, nose, and throat disorders (slubber tender, or ENT) for more tests and treatment. [...] Follow these instructions at home: ? Take exoe-ngf-kdrxzxr and prescription medicines only as told by [...] specializes in ear, nose, and throat disorders (slubber tender, or ENT) for more tests and treatment. This information is not intended to replace advice given to you by your health care provider. Make sure you discuss any questions you have with your health care provider. Document Revised: 12/12/2021 Document Reviewed: 12/12/2021 [employer] Patient Education ? 2022 [employer] Nasal Polyps Nasal polyps are growths [...] not cancer (more content not included)... Normal [facility] CT Abdomen/Pelvis w/o Contra ston 09-29-2023 CT [...] Oral contrast amount in ml's: 0 Normal [facility] B hCG Qualon 09-28-2023 Beta HCG ( test) Ql Negative Normal [facility] Comment on above: Performed By: #### 2 [id number] #### [facility] [address] [place] [address] BMPon 09-28-2023 Anion gap [Moles/Vol] 13 mmol/L Normal 6-16 [facility] Comment on above: Performed By: #### 2 329625 #### [facility] [address] [place] [address] Calcium [Mass/Vol] 9.9 mg/dL Normal 8.9-11.1 [facility] Comment on above: Performed By: #### 2 417410 #### [facility] [address] [place] [address] Chloride [Moles/Vol] 101 mmol/L Normal 101-111 [facility] Comment on above: Performed By: #### 2 660263 #### [facility] [address] [place] [address] CO2 [Moles/Vol] 25 mmol/L Normal 21-31 [facility] Comment on above: Performed By: #### 2 596068 #### [facility] [address] [place] [address] Creatinine [Mass/Vol] 0.9 mg/dL Normal 0.5-1.3 [facility] Comment on above: Performed By: #### 2 890731 #### [facility] [address] [place] [address] Glucose [Mass/Vol] 94 mg/dL Normal 55-199 [facility] Comment on above: Performed By: #### 2 043647 #### [facility] [address] [place] [address] Potassium [Moles/Vol] 3.6 mmol/L Normal 3.5-5.3 [facility] Comment on above: Performed By: #### 2 354510 #### [facility] [address] [place] [address] Sodium [Moles/Vol] 135 mmol/L Normal 135-145 [facility] Comment on above: Performed By: #### 2 303581 #### [facility] [address] [place] [address] Urea nitrogen [Mass/Vol] 8 mg/dL Normal 5-21 [facility] Comment on above: Performed By: #### 2 154303 #### [facility] [address] [place] [address] Urea nitrogen/Creatinine [Mass ratio] 9 No Units Low 10-20 [facility] Comment on above: Performed By: #### 2 753887 #### [facility] [address] [place] [address] CBC w/ Auto Diffon 4 Basophils/100 WBC (Bld) 0.7 % Normal 0.0-2.0 [facility] Comment on above: Performed By: #### 2 800022 #### [facility] [address] [place] [address] Basophils/Leukocytes Auto (Bld) [Pure # fraction] 0.1 E9/L Normal 0.0-0.2 [facility] Comment on above: Performed By: #### 2 550101 #### [facility] [address] [place] [address] Eosinophils (Bld) [#/Vol] 0.0 E9/L Normal 0.0-0.5 [facility] Comment on above: Performed By: #### 2 917876 #### [facility] [address] [place] [address] Eosinophils/100 WBC (Bld) 0.5 % Normal 0.0-8.0 [facility] Comment on above: Performed By: #### 2 303652 #### [facility] [address] [place] [address] Erythrocyte distribution width (RBC) [Ratio] 14.3 % High 10.9-14.2 [facility] Comment on above: Performed By: #### 2 584477 #### [facility] [address] [place] [address] Hematocrit (Bld) [Volume fraction] 39.5 % Normal 34.0-46.0 [facility] Comment on above: Performed By: #### 2 744605 #### [facility] [address] [place] [address] Hemoglobin (Bld) [Mass/Vol] 13.2 g/dL Normal 12.0-16.0 [facility] Comment on above: Performed By: #### 2 740651 #### [facility] [address] [place] [address] Lymphocytes (Bld) [#/Vol] 3.5 E9/L Normal 1.0-4.0 [facility] Comment on above: Performed By: #### 2 050160 #### [facility] [address] [place] [address] Lymphocytes/100 WBC (Bld) 35.6 % Normal 14.0-50.0 [facility] Comment on above: Performed By: #### 2 806845 #### [facility] [address] [place] [address] MCH (RBC) [Entitic mass] 29.3 pg Normal 27.0-34.0 [facility] Comment on above: Performed By: #### 2 000685 #### [facility] [address] [place] [address] MCHC (RBC) [Mass/Vol] 33.5 g/dL Normal 31.4-36.0 [facility] Comment on above: Performed By: #### 2 659123 #### [facility] [address] [place] [address] MCV (RBC) [Entitic vol] 87.4 fL Normal 80.0-100.0 [facility] Comment on above: Performed By: #### 2 951023 #### [facility] [address] [place] [address] Monocytes (Bld) [#/Vol] 0.7 E9/L Normal 0.2-1.0 [facility] Comment on above: Performed By: #### 2 [id number] #### [facility] [address] [place] [address] Neutrophils (Bld) [#/Vol] 5.6 E9/L Normal 2.0-7.5 [facility] Comment on above: Performed By: #### 2 381965 #### [facility] [address] [place] [address] Neutrophils/100 WBC (Bld) 56.4 % Normal 36.0-75.0 [facility] Comment on above: Performed By: #### 2 044014 #### [facility] [address] [place] [address] Platelet mean volume (Bld) [Entitic vol] 8.1 fL Normal 6.4-10.8 [facility] Comment on above: Performed By: #### 2 588803 #### [facility] [address] [place] [address] Platelets (Bld) [#/Vol] 360.0 E9/L Normal 150.0-500.0 [facility] Comment on above: Performed By: #### 2 280919 #### [facility] [address] [place] [address] RBC (Bld) [#/Vol] 4.5 E12/L Normal 4.3-5.9 [facility] Comment on above: Performed By: #### 2 870071 #### [facility] [address] [place] [address] WBC corrected for nucl RBC Auto (Bld) [#/Vol] 9.9 E9/L Normal 4.0-11.0 [facility] Comment on above: Performed By: #### 2 736157 #### [facility] [address] [place] [address] CHEMISTRYOrdered By: SYSTEM SYSTEM on 09-28-2023 Albumin [...] Consent for Treatmenton 08-30 Consent for Treatment [id number] Normal [facility] Discharge Instructionson Discharge Instructions [id number]#1.00TIFF Normal [facility] ED Clinical Summaryon 2023 ED Clinical Summary (Inserted Image. Lyssa ble to display) [place] [id number] ED Clinical Summary Person Information Name: MADHU RENDON [facility] Age: 37 Years : 1985 Sex: Female Language: Luxembourger PCP: Evans CASAS DO, FAAFP Marital Status: Phone: [phone] Visit Id: Visit Reason: Medical problem - [...] 09/28/2023 21:22:15 09/28/2023 21:22:15 09/28/2023 21:22:15 [facility] [id number] [facility] DOC NOTES: MEDICAL INFORMATION: Prescriptions Given: Medications to Continue with No Changes Other Medications enoxaparin (Lovenox 40 mg/0.4 mL Injection) 40 Milligram Subcutaneous every 24 hours. ergocalciferol (Vitamin D) 2,000 International unit By Mouth every week. fluticasone nasal (Flonase 0.05 mg/inh Newport) 2 Sprays Nasal Inhalation every day. each nostril. metformin (MetFORMIN (Eqv-Glucophage XR) 500 mg oral tablet, extended release) 2 Tablets By Mouth every day. PATIENT EDUCATION INFORMATION: Instructions: Abdominal Pain, Adult Follow up: With: Address: When: [address], [place] [address] [place] [address] Business (1) In 3 days DIAGNOSIS: 1:Abdominal pain Normal [facility] ED Note-Physicianon 09-28-19 ED Note-Physician Patient was [...] this plan is discharged stable condition. Normal [facility] Comment on above: Result Comment: Elec tronically Signed By: Sidney Daly DO\.br\Date and Time Signed: 09/28/23 21:12 EDT ED Note-Physician Basic Information Time Seen: Bijan Miramontes PA-C 09/28/2023 18:46 Chief Complaint Pt woke up around 7 am and started getting a pain on R side of belly button. States feels bloated and like her abdomen is coral.Was sent here from [facility] for possible appendicitis. Nausea, denies vomiting. [...] mL, IV, Once Home Flonase 0.05 mg/inh Newport, 2 spray(s), Nasal, Daily Lovenox 40 mg/0.4 [...] No qual (more content not included)... Normal [facility] Comment on above: Result Comment: Elec tronically [...] these instructions at home: Medicines ? Take tcof-czy-uwkuvbk and prescription medicines only as told by [...] your condition for any changes. ? Take xsql-zqz-xymvmsh and prescription medicines only as told by [...] Reviewed: 08/25/2019 Elsevier Patient Education ? 2022 [employer] Normal [facility] ED Patient Summaryon 024 ED Patient Summary (Inserted Image. Lyssa ble to display) [address] [address] Patient Discharge Instructions Person Information Name: MADHU RENDON Age: 37 Years Arrival Date: 09/28/2023 18:21:25 Discharge Diagnosis: 1:Abdominal pain Primary Care Physician: Evnas CASAS DO, FAAFP Provider Information Primary Provider: Benny Uribe DO Advanced Kiln Pusher:Bijan Miramontes PA-C The exam and treatment you received in the Emergency Department were for an urgent problem and are not intended as complete care. It is important that you follow up with a doctor, nurse practitioner, or physician?s therapeutic recreation assistant for ongoing care. If your symptoms [...] Follow-up Instructions: With: Address: When: Evans CASAS [address] [place] [address], [facility] [place] [address] Business (1) In 3 days In the event that this physician does not participate in your insurance network, please consult with your insurance company to find a nearby participating provider. Patient Education Materials: Abdominal Pain, Adult A MESSAGE TO ALL PATIENTS REGARDING OPIOIDS PRESCRIPTION OPIOIDS: WHAT YOU NEED TO KNOW Prescription opioids can be used to help relieve zetlcgxb-za-xnmlef pain and are often prescribed following a [...] be struggling with addiction, tell your health respiratory care assistant and ask for guidance or call [facility]?S National Helpline at 5-367-774-[employer]. e Source: Dep (more content not included)... Normal [facility] Family Medicine Office/Clini c [place] 09-28-2023 Family [...] and agree with above documented HPI by medical technologist. Portions of this record may have been created with voice recognition artificial intelligence software, specifically [employer], [employer] and or [employer]. Substitutions may have occurred due to the inherent limitations of voice recognition and artificial intelligence software. Patient is a 37-year-old female who presents to [facility], for right lower quadrant pain, that [...] Repeat BP 140/90. 37-year-old female presented to [facility], for right lower quadrant abdominal pain, worsening [...] can o (more content not included)... Normal [facility] Comment on above: Result Comment: Elec tronically [...] 09-28-2023 Albumin [Mass/Vol] 4.8 g/dL Normal 3.3-5.0 [facility] Comment on above: Performed By: #### 2 667299 #### [facility] [address] [place] [address] Albumin/Globulin (S) [Mass conc ratio] 1.6 Normal 1.1-2.2 [facility] Comment on above: Performed By: #### 2 548278 #### [facility] [address] [place] [address] ALP [Catalytic activity/Vol] 66 Int._Unit/L Normal 21-98 [facility] Comment on above: Performed By: #### 2 096283 #### [facility] [address] [place] [address] ALT No additional P-5'-P [Catalytic activity/Vol] 16 Int._Unit/L Normal 6-46 [facility] Comment on above: Performed By: #### 2 270977 #### [facility] [address] [place] [address] AST [Catalytic activity/Vol] 15 Int._Unit/L Normal 5-43 [facility] Comment on above: Performed By: #### 2 559774 #### [facility] [address] [place] [address] Bilirubin [Mass/Vol] 0.3 mg/dL Normal 0.0-1.1 [facility] Comment on above: Performed By: #### 2 716250 #### [facility] [address] [place] [address] Bilirubin.direct [Mass/Vol] 0.0 mg/dL Normal 0.0-0.4 [facility] Comment on above: Performed By: #### 2 053475 #### [facility] [address] [place] [address] Bilirubin.indirect [Mass or moles/Vol] 0.3 mg/dL Normal 0.1-0.9 [facility] Comment on above: Performed By: #### 2 375484 #### [facility] [address] [place] [address] Globulin (S) [Mass/Vol] 3.0 g/dL Normal 1.4-4.0 [facility] Comment on above: Performed By: #### 2 269425 #### [facility] [address] [place] [address] Protein [Mass/Vol] 7.8 g/dL Normal 6.0-7.8 [facility] Comment on above: Performed By: #### 2 033627 #### [facility] [address] [place] [address] Lipase Levelon 09-28-2023 Lipase [Catalytic activity/Vol] 26 U/L Normal 13-58 [facility] Comment on above: Performed By: #### 2 400252 #### [facility] [address] [place] [address] Patient Educationon 09-28-19 Patient Education Cardiovascular Hypertension, [...] Keep all follow-up visits. Medicines ? Take qmgr-jrl-jpggljf and prescription medicines only as told by [...] For m (more content not included)... Normal [facility] RAD - Preliminary Cat Scan R eporton 09-28-2023 RAD - Preliminary Cat Scan Report [id number]#1.00TIFF Normal [facility] SEROLOGYOrdered By: Amanda Siegel on 09-28-2023 Beta HCG ( test) Ql Negative (09/28/23 6:59 PM) Normal [facility] Man Sero UA with Cult Rflxon 09-28-19 Bilirubin Ql (U) Negative Normal Negative [facility] Comment on above: Performed By: #### 4 [id number] ####[facility] [address] [place] [address] Clarity (U) Clear Normal Clear [facility] Comment on above: Performed By: #### 4 [id number] ####[facility] [address] [place] [address] Color (U) Colorless Abnormal Yellow [facility] Comment on above: Result Comment: Micr oscopic readings are only performed on those samples that meet specific criteria set forth by [facility]. Performed By: #### 4 [id number] ####[facility] [address] [place] [address] Glucose Ql (U) Negative Normal Negative [facility] Comment on above: Performed By: #### 4 [id number] ####[facility] [address] [facility] [place] [address] Hemoglobin Auto test strip (U) [Mass/Vol] Negative Normal Negative [facility] Comment on above: Performed By: #### 4 [id number] ####[place] [address] [place] [address] Ketones Auto test strip Ql (U) Negative Normal Negative [facility] Comment on above: Performed By: #### 4 [id number] ####[address] [place] [address] Leukocyte esterase Auto test strip Ql (U) Negative Normal Negative [facility] Comment on above: Performed By: #### 4 [id number] ####[address] [address] Nitrite Auto test strip Ql (U) Negative Normal Negative [facility] Comment on above: Performed By: #### 4 [id number] ####[address] [address] pH (U) 7.0 [pH] Invalid Interpretation Code 5.0-9.0 [facility] Comment on above: Performed By: #### 4 [id number] ####[address] [address] Protein Ql (U) Negative Normal Negative [facility] Comment on above: Performed By: #### 4 [id number] ####[place] [address] [facility] [place] [address] Specific gravity (U) [Rel density] 1.003 Invalid Interpretation Code 1.005-1.030 [facility] Comment on above: Performed By: #### 4 [id number] ####[place] [address] [place] [address] Urobilinogen (U) [Mass/Vol] Negative Normal Negative [facility] Comment on above: Performed By: #### 4 [id number] ####[facility] [address] [place] [address] Type of Urine collection method Clean Catch Normal [facility] Comment on above: Performed By: #### 4 [id number] ####[facility] [address] [place] [address] URINALYSISOrdered By: SYSTEM SYSTEM on 09-28-2023 Bilirubin Ql (U) Negative Normal Negativemg/ dL [facility] UA Auto SS Clarity (U) Clear (09/28/23 7:35 PM) Normal Clear [facility] UA Auto SS Color (U) Colorless 1 *ABN* (09/28/23 7:35 PM) Invalid Interpretation Code Yellow [facility] UA Auto SS Comment on above: Interpretive Data: M icroscopic readings are only performed on those samples that meet specific criteria set forth by [facility]. Glucose Ql (U) Negative Normal Negativemg/ [...] Urobilinogen (U) [Mass/Vol] Negative Normal Negativemg/ dL [facility] UA Auto SS URINALYSISOrdered By: Bijan Miramontes on 09-28-2023 UA Spec Desc Clean Catch (09/28/23 7:35 PM) Normal [facility] UA Auto SS Work Phone: eGFRon 09-28-2023 eGFR 84 mL/min/1.73 m2 Normal >=59 [facility] Comment on above: Order Comment: Order added by Discern Expert. Performed By: #### 1 [id number] #### [facility] [address] [place] [address] Sisi 09-27-2023 CNPN Telephone (NCCAP) -- MADHU RENDON ([id number]) 1985 F Date Time Provider Department 09/27/23 [facility] During your visit today, we recorded the [...] Status:Closed by HARJIT HASKINS on 09/27/23 Normal [facility] Ambulatory Visit Summaryon 0 08-03-2023 Ambulatory [...] (Vitamin D) fluticasone nasal (Flonase 0.05 mg/inh Newport) metformin (MetFORMIN (Eqv-Glucophage XR) 500 mg oral [...] months Where: [address], [place] [address]- You Need to Complete the Following HgbA1c, [...] Unchanged fluticasone nasal (Flonase 0.05 mg/ inh Newport) 2 Sprays Nasal Inhalation Every day each [...] a mile (more content not included)... Normal [facility] Family Medicine Office/Clini c Noteon 08-03-2023 Family [...] comfortable with plan. PNMV Ordered: A1c POC 29576 Total time spent preparing the chart, conducting [...] FAAFP, FAM, PED In [address], [place] [address]- Additional Instructions: Patient Education Exercising to Lose Weight Problem Lis (more content not included)... Normal [facility] Comment on above: Result Comment: Elec tronically [...] your health care provider or diet and vision specialist (dietitian). This may include: ? Eating fewer [...] e (more content not included)... Normal [facility] Patient Educationon 06-21-19 Patient Education Endocrinology Blood [...] following in (more content not included)... Normal [facility] Lab Reportson 06-20-2023 Lab Reports [id number]#1.00TIFF Normal [facility] Consultation Noteon 06-19-19 Consultation Note [id number]#1.00TIFF [facility] 25(OH)D3 SerPl-mCncon 2023 25-hydroxyvitamin D3 [Mass/Vol] 24.7 ng/mL Low 31.0-80.0 [facility] Comment on above: Order Comment: Cesar redd Type: BLOOD SPECIMEN Ordering Facility: [facility] Address: [address] [place] [address] Result Comment: Clas sification of 25 [place] Vitamin D status: Deficiency/Insufficiency: < or = 30 ng/ml. Sufficiency/Optimal Levels: 31-80 ng/mL Toxicity: > 100 ng/mL. Test performed by chemiluminescent immunoassay. Performed By: #### 5 0190-8, 2131-12, 2275-07, 2283-11 #### [facility] CLIA [id number] [address] [place] [address] [place] CBC W Auto Differential pane l (Bld)on 06-15-2023 Basophils (Bld) [#/Vol] 0.03 10*3/uL Normal <0.11 [facility] Comment on above: Order Comment: Cesar redd Type: BLOOD SPECIMEN Ordering Facility: [facility] Address: [address] [place] [address] Performed By: #### 5 0190-8, 2131-12, 2275-07, 2283-11 #### [facility] CLIA [id number] [address] [place] [address] [place] Basophils/100 WBC (Bld) 0.4 % Normal [facility] Comment on above: Order Comment: Speci men Type: BLOOD SPECIMEN Ordering Facility: [facility] Address: [address] [place] [address] Performed By: #### 5 0190-8, 9, 2275-4, 8 #### [facility] CLIA [id number] [address] [place] [address] [place] Differential cell count method Nom (Bld) Auto Normal [facility] Comment on above: Order Comment: Speci men Type: BLOOD SPECIMEN Ordering Facility: [facility] Address: [address] [place] [address] Performed By: #### 5 0190-8, 9, 4, 2283-11 #### [facility] CLIA [id number] [address] [place] [address] [place] Eosinophils (Bld) [#/Vol] 0.08 10*3/uL Normal <0.46 [facility] Comment on above: Order Comment: Speci men Type: BLOOD SPECIMEN Ordering Facility: [facility] Address: [address] [place] [address] Performed By: #### 5 0190-8, 9, 4, 2283-11 #### [facility] CLIA [id number] [address] [place] [address] [place] Eosinophils/100 WBC (Bld) 1.0 % Normal [facility] Comment on above: Order Comment: Speci men Type: BLOOD SPECIMEN Ordering Facility: [facility] Address: [address] [place] [address] Performed By: #### 5 0190-8, 9, 4, 8 #### [facility] CLIA [id number] [address] [place] [address] [place] Erythrocyte distribution width (RBC) [Ratio] 13.4 % Normal 11.5-15.0 [facility] Comment on above: Order Comment: Speci men Type: BLOOD SPECIMEN Ordering Facility: [facility] Address: [address] [place] [address] Performed By: #### 5 0190-8, 9, 4, 8 #### [facility] CLIA [id number] [address] [place] [address] [place] Hematocrit (Bld) [Volume fraction] 39.2 % Normal 36.0-46.0 [facility] Comment on above: Order Comment: Speci men Type: BLOOD SPECIMEN Ordering Facility: [facility] Address: [address] [place] [address] Performed By: #### 5 0190-8, 9, 2275-07, 2283-11 #### [facility] CLIA [id number] [address] [place] [address] [place] Hemoglobin (Bld) [Mass/Vol] 13.4 g/dL Normal 11.5-15.5 [facility] Comment on above: Order Comment: Speci men Type: BLOOD SPECIMEN Ordering Facility: [facility] Address: [address] [place] [address] Performed By: #### 5 0190-8, 9, 2275-07, 2283-11 #### [facility] CLIA [id number] [address] [place] [address] [place] Immature granulocytes (Bld) [#/Vol] 10*3/uL Normal <0.10 [facility] Comment on above: Order Comment: Speci men Type: BLOOD SPECIMEN Ordering Facility: [facility] Address: [address] [place] [address] Performed By: #### 5 0190-8, 2131-9, 4, 2283-11 #### [facility] CLIA [id number] [address] [place] [address] [place] Immature granulocytes/100 WBC (Bld) 0.2 % Normal [facility] Comment on above: Order Comment: Speci men Type: BLOOD SPECIMEN Ordering Facility: [facility] Address: [address] [place] [address] Performed By: #### 5 0190-8, 9, 2275-07, 2283-11 #### [facility] CLIA [id number] [address] [place] [address] [place] Lymphocytes (Bld) [#/Vol] 2.96 10*3/uL Normal 1.00-4.00 [facility] Comment on above: Order Comment: Speci men Type: BLOOD SPECIMEN Ordering Facility: [facility] Address: [address] [place] [address] Performed By: #### 5 0190-8, 9, 2275-07, 2283-11 #### [facility] CLIA [id number] [address] [place] [address] [place] Lymphocytes/100 WBC (Bld) 36.8 % Normal [facility] Comment on above: Order Comment: Speci men Type: BLOOD SPECIMEN Ordering Facility: [facility] Address: [address] [place] [address] Performed By: #### 5 0190-8, 9, 2275-07, 2283-11 #### [facility] CLIA [id number] [address] [place] [address] [place] MCH (RBC) [Entitic mass] 29.4 pg Normal 26.0-34.0 [facility] Comment on above: Order Comment: Speci men Type: BLOOD SPECIMEN Ordering Facility: [facility] Address: [address] [place] [address] Performed By: #### 5 0190-8, 9, 2275-07, 2283-11 #### [facility] CLIA [id number] [address] [place] [address] [place] MCHC (RBC) [Mass/Vol] 34.2 g/dL Normal 30.5-36.0 [facility] Comment on above: Order Comment: Speci men Type: BLOOD SPECIMEN Ordering Facility: [facility] Address: [address] [place] [address] Performed By: #### 5 0190-8, 9, 2275-07, 2283-11 #### [facility] CLIA [id number] [address] [place] [address] [place] MCV (RBC) [Entitic vol] 86.0 fL Normal 80.0-100.0 [facility] Comment on above: Order Comment: Speci men Type: BLOOD SPECIMEN Ordering Facility: [facility] Address: [address] [place] [address] Performed By: #### 5 0190-8, 9, 2275-07, 2283-11 #### [facility] CLIA [id number] [address] [place] [address] [place] Monocytes (Bld) [#/Vol] 0.45 10*3/uL Normal <0.87 [facility] Comment on above: Order Comment: Speci men Type: BLOOD SPECIMEN Ordering Facility: [facility] Address: [address] [place] [address] Performed By: #### 5 0190-8, 9, 2275-07, 2283-11 #### [facility] CLIA [id number] [address] [place] [address] [place] Monocytes/100 WBC (Bld) 5.6 % Normal [facility] Comment on above: Order Comment: Speci men Type: BLOOD SPECIMEN Ordering Facility: [facility] Address: [address] [place] [address] Performed By: #### 5 0190-8, 9, 2275-07, 2283-11 #### [facility] CLIA [id number] [address] [place] [address] [place] Neutrophils (Bld) [#/Vol] 4.50 10*3/uL Normal 1.45-7.50 [facility] Comment on above: Order Comment: Speci men Type: BLOOD SPECIMEN Ordering Facility: [facility] Address: [address] [place] [address] Performed By: #### 5 0190-8, 9, 2275-07, 2283-11 #### [facility] CLIA [id number] [address] [place] [address] [place] Neutrophils/100 WBC (Bld) 56.0 % Normal [facility] Comment on above: Order Comment: Speci men Type: BLOOD SPECIMEN Ordering Facility: [facility] Address: [address] [place] [address] Performed By: #### 5 0190-8, 9, 2275-07, 2283-11 #### [facility] CLIA [id number] [address] [place] [address] [place] Nucleated RBC (Bld) [#/Vol] 10*3/uL Normal <0.01 [facility] Comment on above: Order Comment: Speci men Type: BLOOD SPECIMEN Ordering Facility: [facility] Address: [address] [place] [address] Performed By: #### 5 0190-8, 9, 2275-07, 2283-11 #### [facility] CLIA [id number] [address] [place] [address] [place] Nucleated RBC/100 WBC (Bld) [Ratio] 0.0 /100 WBC Normal [facility] Comment on above: Order Comment: Speci men Type: BLOOD SPECIMEN Ordering Facility: [facility] Address: [address] [place] [address] Performed By: #### 5 0190-8, 9, 2275-07, 2283-11 #### [facility] CLIA [id number] [address] [place], [place] [id number] [place] Platelet mean volume (Bld) [Entitic vol] 9.8 fL Normal 9.0-12.7 [facility] Comment on above: Order Comment: Speci men Type: BLOOD SPECIMEN Ordering Facility: [facility] Address: [address] [place] [address] Performed By: #### 5 0190-8, 9, 2275-07, 2283-11 #### [facility] CLIA [id number] [address] [place] [address] [place] Platelets (Bld) [#/Vol] 348 10*3/uL Normal 150-400 [facility] Comment on above: Order Comment: Speci men Type: BLOOD SPECIMEN Ordering Facility: [facility] Address: [address] [place] [address] Performed By: #### 5 0190-8, 9, 2275-07, 2283-11 #### [facility] CLIA [id number] [address] [place] [address] [place] RBC (Bld) [#/Vol] 4.56 10*6/uL Normal 3.90-5.20 [facility] Comment on above: Order Comment: Speci men Type: BLOOD SPECIMEN Ordering Facility: [facility] Address: [address] [place] [address] Performed By: #### 5 0190-8, 9, 2275-07, 2283-11 #### [facility] CLIA [id number] [address] [place] [address] [place] WBC (Bld) [#/Vol] 8.04 10*3/uL Normal 3.70-11.00 [facility] Comment on above: Order Comment: Speci men Type: BLOOD SPECIMEN Ordering Facility: [facility] Address: [address] [place] [address] Performed By: #### 5 0190-8, 2132-9, 2276-4, 2284-8 #### [facility] CLIA [id number] [address] [place] [address] [place] OF [facility] CNOVSPon 06-15-2023 CNOVSP Visit (SP) Office (H EMASA) -- MADHU RENDON ([id number]) 1985 F Date Time Provider Department 06/15/23 2:00 PM SALVADOR CALIX During your visit today, we recorded the following information about you: Temperature Pulse Respiration Blood pressure 97.4 degrees 87/minute 16/minute 147/75 Weight Height 108.1 kg 1.677 m Salvador Calix MD 06/17/2023 9:02 AM Signed NAME: Madhu Rendon CLINIC NO.: [id number] DATE OF SERVICE: June 15, 2023 (Levon) [...] later in 2018. These were found in [place], [place]. I don't have access to these [...] a target-like rash shortly before presenting to [facility] in 2016 with headaches and was diagnosed [...] soon. When she had a stoke in [place], she had symptoms up to a month [...] and stayed on Lovenox Hgb 13.1 @ [facility] Recommended ER if persisting bleeding but she [...] and r (more content not included)... Normal [facility] JUSTICE,KATIE ([id number]) 1985 F Date Time Provider Department 06/15/23 [...] Rush Natalie, RN 06/19/2023 12:27 PM Signed [employer] message sent MARSHA Rush Natalie, RN 06/19/2023 1:06 PM Signed Pt called back and aware of [employer]'s message. She is agreeable to POC and [...] Status:Closed by NAGA JOHNSON on 06/19/23 Normal [facility] Calcium.ionized [Moles/Vol]o n 06-15-2023 Calcium.ionized (Bld) [Mass/Vol] 1.28 mmol/L Normal 1.08-1.30 [facility] Comment on above: Order Comment: Cesar redd Type: BLOOD SPECIMEN Ordering Facility: External Submitter Address: , , Performed By: #### 1 995-0 #### [facility] CLIA [id number] [address] [place] [address] [place] Calcium.ionized adjusted to pH 7.4 (Bld) [Moles/Vol] 1.31 mmol/L High 1.08-1.30 [facility] Comment on above: Order Comment: Cesar redd Type: BLOOD SPECIMEN Ordering Facility: External Submitter Address: , , Performed By: #### 1 995-0 #### [facility] CLIA [id number] [address] [place] [address] [place] Comprehensive metabolic 2000 panelon 06-15-2023 Albumin [Mass/Vol] 4.8 g/dL Normal 3.9-4.9 [facility] Comment on above: Order Comment: Speci men Type: BLOOD SPECIMEN Ordering Facility: [facility] Address: [address] [place] [address] Performed By: #### 5 0190-8, 9, 2275-4, 8 #### [facility] CLIA [id number] [address] [place] [address] [place] ALP [Catalytic activity/Vol] 100 U/L Normal 34-123 [facility] Comment on above: Order Comment: Speci men Type: BLOOD SPECIMEN Ordering Facility: [facility] Address: [address] [place] [address] Performed By: #### 5 0190-8, 9, 4, 2283-11 #### [facility] CLIA [id number] [address] [place] [address] [place] ALT [Catalytic activity/Vol] 36 U/L Normal 7-38 [facility] Comment on above: Order Comment: Speci men Type: BLOOD SPECIMEN Ordering Facility: [facility] Address: [address] [place] [address] Performed By: #### 5 0190-8, 9, 4, 2283-11 #### [facility] CLIA [id number] [address] [place] [address] [place] Anion gap [Moles/Vol] 13 mmol/L Normal 9-18 [facility] Comment on above: Order Comment: Speci men Type: BLOOD SPECIMEN Ordering Facility: [facility] Address: [address] [place] [address] Performed By: #### 5 0190-8, 9, 4, 2283-11 #### [facility] CLIA [id number] [address] [place] [address] [place] AST [Catalytic activity/Vol] 23 U/L Normal 13-35 [facility] Comment on above: Order Comment: Speci men Type: BLOOD SPECIMEN Ordering Facility: [facility] Address: [address] [place] [address] Performed By: #### 5 0190-8, 9, 4, 2283-11 #### [facility] CLIA [id number] [address] [place] [address] [place] Bilirubin [Mass/Vol] 0.2 mg/dL Normal 0.2-1.3 [facility] Comment on above: Order Comment: Speci men Type: BLOOD SPECIMEN Ordering Facility: [facility] Address: [address] [place] [address] Performed By: #### 5 0190-8, 9, 2275-07, 2283-11 #### [facility] CLIA [id number] [address] [place] [address] [place] Calcium [Mass/Vol] 9.9 mg/dL Normal 8.5-10.2 [facility] Comment on above: Order Comment: Speci men Type: BLOOD SPECIMEN Ordering Facility: [facility] Address: [address] [place] [address] Performed By: #### 5 0190-8, 9, 2275-07, 2283-11 #### [facility] CLIA [id number] [address] [place] [address] [place] Chloride [Moles/Vol] 103 mmol/L Normal 97-105 [facility] Comment on above: Order Comment: Speci men Type: BLOOD SPECIMEN Ordering Facility: [facility] Address: [address] [place] [address] Performed By: #### 5 0190-8, 9, 2275-07, 2283-11 #### [facility] CLIA [id number] [address] [place] [address] [place] CO2 [Moles/Vol] 22 mmol/L Normal 22-30 [facility] Comment on above: Order Comment: Speci men Type: BLOOD SPECIMEN Ordering Facility: [facility] Address: [address] [place] [address] Performed By: #### 5 0190-8, 9, 2275-07, 2283-11 #### [facility] CLIA [id number] [address] [place] [address] [place] Creatinine [Mass/Vol] 0.78 mg/dL Normal 0.58-0.96 [facility] Comment on above: Order Comment: Speci men Type: BLOOD SPECIMEN Ordering Facility: [facility] Address: [address] [place] [address] Performed By: #### 5 0190-8, 2131-12, 2275-07, 2283-11 #### [facility] CLIA [id number] [address] [place] [address] [place] Creatinine and Glomerular filtration rate.predicted panel (S/P/Bld) 100 mL/min/1.73m??? Normal >=60 [facility] Comment on above: Order Comment: Speci men Type: BLOOD SPECIMEN Ordering Facility: [facility] Address: [address] [place] [address] Result Comment: Hawa mated Glomerular Filtration Rate [...] #### 5 0190-8, 9, 2275-07, 2283-11 #### [facility] CLIA [id number] [address] [place] [address] [place] Glucose [Mass/Vol] 134 mg/dL High 74-99 [facility] Comment on above: Order Comment: Speci men Type: BLOOD SPECIMEN Ordering Facility: [facility] Address: [address] [place] [address] Result Comment: The [place] Diabetes Association (ADA) provides guidance for cutoff [...] Standards of Medical Care in Diabetes 2016, [place] [employer] Association. Diabetes Care. 2016.39(Suppl 1). Performed By: #### 5 0190-8, 2131-12, 2275-07, 2283-11 #### [facility] CLIA [id number] [address] [place] [address] [place] Potassium [Moles/Vol] 3.8 mmol/L Normal 3.7-5.1 [facility] Comment on above: Order Comment: Cesar redd Type: BLOOD SPECIMEN Ordering Facility: [facility] Address: [address] [place] [address] Performed By: #### 5 0190-8, 2131-12, 2275-07, 2283-11 #### [facility] CLIA [id number] [address] [place] [address] [place] Protein [Mass/Vol] 7.8 g/dL Normal 6.3-8.0 [facility] Comment on above: Order Comment: Cesar redd Type: BLOOD SPECIMEN Ordering Facility: [facility] Address: [address] [place] [address] Performed By: #### 5 0190-8, 2131-12, 2275-07, 2283-11 #### [facility] CLIA [id number] [address] [place] [address] [place] Sodium [Moles/Vol] 138 mmol/L Normal 136-144 [facility] Comment on above: Order Comment: Speci men Type: BLOOD SPECIMEN Ordering Facility: [facility] Address: [address] [place] [address] Performed By: #### 5 0190-8, 9, 6-4, 8 #### [facility] CLIA [id number] [address] [place] [address] [place] Urea nitrogen [Mass/Vol] 11 mg/dL Normal 7-21 [facility] Comment on above: Order Comment: Speci men Type: BLOOD SPECIMEN Ordering Facility: [facility] Address: [address] [place] [address] Performed By: #### 5 0190-8, 9, 2275-4, 8 #### [facility] CLIA [id number] [address] [place] [address] [place] Ferritin SerPl-mCncon 2023 Ferritin [Mass/Vol] 57.6 ng/mL Normal 14.7-205.1 [facility] Comment on above: Order Comment: Speci men Type: BLOOD SPECIMEN Ordering Facility: [facility] Address: [address] [place] [address] Performed By: #### 5 0190-8, 9, 4, 8 #### [facility] CLIA [id number] [address] [place] [address] [place] Folate SerPl-mCncon 06-15-19 24 Folate [Mass/Vol] ng/mL Normal >4.7 [facility] Comment on above: Order Comment: Speci [...] III (Folate III) [package insert V 1.0 [place]]. [facility], [place], [place]: February 2015. Performed By: #### 2 284-8, 2731-8, 9 ####[facility] [id number] [place] [address] [place] Iron and Iron binding capaci ty panelon 06-15-2023 Iron [Mass/Vol] 59 ug/dL Normal 41-186 [facility] Comment on above: Order Comment: Speci men Type: BLOOD SPECIMEN Ordering Facility: [facility] Address: [address] [place] [address] Performed By: #### 5 0190-8, 9, 2275-07, 2283-11 #### [facility] CLIA [id number] [address] [place] [address] [place] Iron binding capacity [Mass/Vol] 408 ug/dL High 232-386 [facility] Comment on above: Order Comment: Speci men Type: BLOOD SPECIMEN Ordering Facility: [facility] Address: [address] [place] [address] Performed By: #### 5 0190-8, 2131-12, 2275-07, 2283-11 #### [facility] CLIA [id number] [address] [place] [address] [place] Iron/TIBC [Molar ratio] 14.5 % Low 15.0-57.0 [facility] Comment on above: Order Comment: Speci men Type: BLOOD SPECIMEN Ordering Facility: [facility] Address: [address] [place] [address] Performed By: #### 5 0190-8, 9, 2275-07, 2283-11 #### [facility] CLIA [id number] [address] [place] [address] [place] PTH-Intact SerPl-[facility] 05-31 Parathyrin.intact [Mass/Vol] 47 pg/mL Normal 15-65 [facility] Comment on above: Order Comment: Speci men Type: BLOOD SPECIMENOrdering Facility: External Submitter Address: , , Performed By: #### 2 284-8, 2730-8, 2131-12 ####[facility] [id number] [place] [address] [place] TSH SerPl-aCncon 06-15-2023 TSH Qn 4.730 m[IU]/L High 0.270-4.200 [facility] Comment on above: Order Comment: Speci men Type: BLOOD SPECIMEN Ordering Facility: [facility] Address: [address] [place] [address] Result Comment: If t he patient is , TSH reference range varies by gestational period: First Trimester (weeks 9-12): 0.180-2.990 mIU/L Second Trimester: 0.110-3.980 mIU/L Third Trimester: 0.480-4.710 mIU/L Danny Varela et al. A Practical Approach for the Verifications and Determination of Site- and Trimester-Specific Reference Intervals for Thyroid Function tests in . Thyroid, 2019:29:3:412-420. Saeed E, et al. 2017 Guidelines of the [place] Thyroid Association for the Diagnosis and Management of Thyroid Disease during and the . Thyroid, 2017:27:3:315-389. Performed By: #### 5 0190-8, 9, 6-4, 8 #### [facility] CLIA [id number] [address] [place] [address] [place] Vit B12 SerPl-mCncon 024 Cobalamin (Vitamin B12) [Mass/Vol] 404 pg/mL Normal 232-1245 [facility] Comment on above: Order Comment: Speci men Type: BLOOD SPECIMENOrdering Facility: External Submitter Address: , , Performed By: #### 2 284-8, 2731-8, 2131-12 ####[facility] [id number] [place] [address] [facility] Sisi 06-11-2023 CNPN Telephone (HEMASA) -- MADHU RENDON ([id number]) 1985 F Date Time Provider Department 06/11/23 [...] R53.83] Order(s):CBC + DIFF [SQCBCDIF] Order #: [id number] FUTURE COMP METABOLIC PANEL [SQCMP] Order #: [id number] FUTURE IRON + TIBC [SQIRON] Order #: [id number] FUTURE FERRITIN BLD [SQFERR] Order #: [id number] FUTURE VITAMIN B12 BLOOD [SQB12] Order #: [id number] FUTURE FOLATE SERUM [SQSERFOL] Order #: [id number] FUTURE TSH BLD [SQTSH] Order #: [id number] FUTURE VITAMIN D 25 HYDROXY [SQVITD] Order #: [id number] FUTURE CALCIUM IONIZED BLOOD [SQICA] Order #: [id number] FUTURE PTH, INTACT (WITHOUT CALCIUM) [4245163] Order #: [id number] FUTURE PTH, INTACT (WITHOUT CALCIUM) [2094306] Order #: [id number] Prescriptions as of 06/12/2023 - enoxaparin (LOVENOX) [...] Encounter Status:Closed by SALVADOR CALIX on 06/12/23 [facility] Sisi 06-01-2023 [facility] MADHU RENDON ([id number]) 1985 F Date Time Provider Department 06/01/23 SALVADOR CALIX During your visit today, we recorded the following information about you: Marleen Smith 06/01/2023 9:[address] Luna is referring Madhu back to see Dr. Peng Monge / Neurology / [place] Dx: vision changes and numbness of face. Pt states that it has been a few years since she was last seen by him. [facility] [address], [place] Bhavna, Please fax records Andres, Please follow up on this appt. Thank you Nicol Avila 06/04/2023 9:12 AM Signed Bhavna: Information ready for you. [facility] 8:37 AM Signed Records faxed. Nicol [...] Status:Closed by MARLEEN SMITH on 06/11/23 Normal [facility] CBC W Auto Differential pane l (Bld)on 05-28-2023 Basophils (Bld) [#/Vol] 0.04 10*3/uL Normal <0.11 [facility] Comment on above: Order Comment: Speci men Type: BLOOD SPECIMEN Ordering Facility: [facility] Address: [address] [place] [address] Performed By: #### 5 0190-8, 9, 2275-07, 2283-11 #### [facility] CLIA [id number] [address] [place] [address] [place] Basophils/100 WBC (Bld) 0.5 % Normal [facility] Comment on above: Order Comment: Speci men Type: BLOOD SPECIMEN Ordering Facility: [facility] Address: [address] [place] [address] Performed By: #### 5 0190-8, 2131-12, 2275-07, 2283-11 #### [facility] CLIA [id number] [address] [place] [address] [place] Differential cell count method Nom (Bld) Auto Normal [facility] Comment on above: Order Comment: Speci men Type: BLOOD SPECIMEN Ordering Facility: [facility] Address: [address] [place] [address] Performed By: #### 5 0190-8, 2131-12, 2275-07, 2283-11 #### [facility] CLIA [id number] [address] [place] [address] [place] Eosinophils (Bld) [#/Vol] 0.11 10*3/uL Normal <0.46 [facility] Comment on above: Order Comment: Speci men Type: BLOOD SPECIMEN Ordering Facility: [facility] Address: [address] [place] [address] Performed By: #### 5 0190-8, 2131-12, 2275-07, 2283-11 #### [facility] CLIA [id number] [address] [place] [address] [place] Eosinophils/100 WBC (Bld) 1.4 % Normal [facility] Comment on above: Order Comment: Speci men Type: BLOOD SPECIMEN Ordering Facility: [facility] Address: [address] [place] [address] Performed By: #### 5 0190-8, 2131-12, 2275-07, 2283-11 #### [facility] CLIA [id number] [address] [place] [address] [place] Erythrocyte distribution width (RBC) [Ratio] 13.4 % Normal 11.5-15.0 [facility] Comment on above: Order Comment: Speci men Type: BLOOD SPECIMEN Ordering Facility: [facility] Address: [address] [place] [address] Performed By: #### 5 0190-8, 2131-12, 2275-07, 2283-11 #### [facility] CLIA [id number] [address] [place] [address] [place] Hematocrit (Bld) [Volume fraction] 40.5 % Normal 36.0-46.0 [facility] Comment on above: Order Comment: Speci men Type: BLOOD SPECIMEN Ordering Facility: [facility] Address: [address] [place] [address] Performed By: #### 5 0190-8, 2131-12, 2275-07, 2283-11 #### [facility] CLIA [id number] [address] [place] [address] [place] Hemoglobin (Bld) [Mass/Vol] 13.7 g/dL Normal 11.5-15.5 [facility] Comment on above: Order Comment: Speci men Type: BLOOD SPECIMEN Ordering Facility: [facility] Address: [address] [place] [address] Performed By: #### 5 0190-8, 2131-12, 2275-07, 2283-11 #### [facility] CLIA [id number] [address] [place] [address] [place] Immature granulocytes (Bld) [#/Vol] 10*3/uL Normal <0.10 [facility] Comment on above: Order Comment: Speci men Type: BLOOD SPECIMEN Ordering Facility: [facility] Address: [address] [place] [address] Performed By: #### 5 0190-8, 2131-9, 2275-4, 8 #### [facility] CLIA [id number] [address] [place] [address] [place] Immature granulocytes/100 WBC (Bld) 0.2 % Normal [facility] Comment on above: Order Comment: Speci men Type: BLOOD SPECIMEN Ordering Facility: [facility] Address: [address] [place] [address] Performed By: #### 5 0190-8, 9, 4, 8 #### [facility] CLIA [id number] [address] [place] [address] [place] Lymphocytes (Bld) [#/Vol] 3.54 10*3/uL Normal 1.00-4.00 [facility] Comment on above: Order Comment: Speci men Type: BLOOD SPECIMEN Ordering Facility: [facility] Address: [address] [place] [address] Performed By: #### 5 0190-8, 9, 4, 2283-11 #### [facility] CLIA [id number] [address] [place] [address] [place] Lymphocytes/100 WBC (Bld) 44.2 % Normal [facility] Comment on above: Order Comment: Speci men Type: BLOOD SPECIMEN Ordering Facility: [facility] Address: [address] [place] [address] Performed By: #### 5 0190-8, 9, 4, 2283-11 #### [facility] CLIA [id number] [address] [place] [address] [place] MCH (RBC) [Entitic mass] 29.1 pg Normal 26.0-34.0 [facility] Comment on above: Order Comment: Speci men Type: BLOOD SPECIMEN Ordering Facility: [facility] Address: [address] [place] [address] Performed By: #### 5 0190-8, 9, 4, 8 #### [facility] CLIA [id number] [address] [place] [address] [place] MCHC (RBC) [Mass/Vol] 33.8 g/dL Normal 30.5-36.0 [facility] Comment on above: Order Comment: Speci men Type: BLOOD SPECIMEN Ordering Facility: [facility] Address: [address] [place] [address] Performed By: #### 5 0190-8, 9, 2275-07, 2283-11 #### [facility] CLIA [id number] [address] [place] [address] [place] MCV (RBC) [Entitic vol] 86.0 fL Normal 80.0-100.0 [facility] Comment on above: Order Comment: Speci men Type: BLOOD SPECIMEN Ordering Facility: [facility] Address: [address] [place] [address] Performed By: #### 5 0190-8, 2131-9, 2275-07, 2283-11 #### [facility] CLIA [id number] [address] [place] [address] [place] Monocytes (Bld) [#/Vol] 0.60 10*3/uL Normal <0.87 [facility] Comment on above: Order Comment: Speci men Type: BLOOD SPECIMEN Ordering Facility: [facility] Address: [address] [place] [address] Performed By: #### 5 0190-8, 2131-9, 2275-07, 2283-11 #### [facility] CLIA [id number] [address] [place] [address] [place] Monocytes/100 WBC (Bld) 7.5 % Normal [facility] Comment on above: Order Comment: Speci men Type: BLOOD SPECIMEN Ordering Facility: [facility] Address: [address] [place] [address] Performed By: #### 5 0190-8, 2131-9, 2275-4, 8 #### [facility] CLIA [id number] [address] [place] [address] [place] Neutrophils (Bld) [#/Vol] 3.70 10*3/uL Normal 1.45-7.50 [facility] Comment on above: Order Comment: Speci men Type: BLOOD SPECIMEN Ordering Facility: [facility] Address: [address] [place] [address] Performed By: #### 5 0190-8, 2131-9, 2275-07, 8 #### [facility] CLIA [id number] [address] [place] [address] [place] Neutrophils/100 WBC (Bld) 46.2 % Normal [facility] Comment on above: Order Comment: Speci men Type: BLOOD SPECIMEN Ordering Facility: [facility] Address: [address] [place] [address] Performed By: #### 5 0190-8, 2131-9, 2275-4, 8 #### [facility] CLIA [id number] [address] [place] [address] [place] Nucleated RBC (Bld) [#/Vol] 10*3/uL Normal <0.01 [facility] Comment on above: Order Comment: Speci men Type: BLOOD SPECIMEN Ordering Facility: [facility] Address: [address] [place] [address] Performed By: #### 5 0190-8, 2131-9, 2275-4, 8 #### [facility] CLIA [id number] [address] [place] [address] [place] Nucleated RBC/100 WBC (Bld) [Ratio] 0.0 /100 WBC Normal [facility] Comment on above: Order Comment: Speci men Type: BLOOD SPECIMEN Ordering Facility: [facility] Address: [address] [place], [place] [id number] Performed By: #### 5 0190-8, 9, 2275-07, 8 #### [facility] CLIA [id number] [address] [place] [address] [place] Platelet mean volume (Bld) [Entitic vol] 10.1 fL Normal 9.0-12.7 [facility] Comment on above: Order Comment: Speci men Type: BLOOD SPECIMEN Ordering Facility: [facility] Address: [address] [place] [address] Performed By: #### 5 0190-8, 9, 2275-07, 2283-11 #### [facility] CLIA [id number] [address] [place] [address] [place] Platelets (Bld) [#/Vol] 339 10*3/uL Normal 150-400 [facility] Comment on above: Order Comment: Speci men Type: BLOOD SPECIMEN Ordering Facility: [facility] Address: [address] [place] [address] Performed By: #### 5 0190-8, 9, 2275-07, 2283-11 #### [facility] CLIA [id number] [address] [place] [address] [place] RBC (Bld) [#/Vol] 4.71 10*6/uL Normal 3.90-5.20 [facility] Comment on above: Order Comment: Speci men Type: BLOOD SPECIMEN Ordering Facility: [facility] Address: [address] [place] [address] Performed By: #### 5 0190-8, 9, 2275-07, 2283-11 #### [facility] CLIA [id number] [address] [place] [address] [place] WBC (Bld) [#/Vol] 8.01 10*3/uL Normal 3.70-11.00 [facility] Comment on above: Order Comment: Speci men Type: BLOOD SPECIMEN Ordering Facility: [facility] Address: [address] [place] [address] Performed By: #### 5 0190-8, 9, 2275-07, 2283-11 #### [facility] CLIA [id number] [address] [place] [address] [place] Comprehensive metabolic 2000 panelon 05-28-2023 Albumin [Mass/Vol] 4.8 g/dL Normal 3.9-4.9 [facility] Comment on above: Order Comment: Speci men Type: BLOOD SPECIMEN Ordering Facility: [facility] Address: [address] [place] [address] Performed By: #### 5 0190-8, 2131-12, 2275-07, 2283-11 #### [facility] CLIA [id number] [address] [place] [address] [place] ALP [Catalytic activity/Vol] 95 U/L Normal 34-123 [facility] Comment on above: Order Comment: Speci men Type: BLOOD SPECIMEN Ordering Facility: [facility] Address: [address] [place] [address] Performed By: #### 5 0190-8, 2131-12, 2275-07, 2283-11 #### [facility] CLIA [id number] [address] [place] [address] [place] ALT [Catalytic activity/Vol] 24 U/L Normal 7-38 [facility] Comment on above: Order Comment: Speci men Type: BLOOD SPECIMEN Ordering Facility: [facility] Address: [address] [place] [address] Performed By: #### 5 0190-8, 2131-12, 2275-07, 2283-11 #### [facility] CLIA [id number] [address] [place] [address] [place] Anion gap [Moles/Vol] 12 mmol/L Normal 9-18 [facility] Comment on above: Order Comment: Speci men Type: BLOOD SPECIMEN Ordering Facility: [facility] Address: [address] [place] [address] Performed By: #### 5 0190-8, 2131-12, 2275-07, 2283-11 #### [facility] CLIA [id number] [address] [place] [address] [place] AST [Catalytic activity/Vol] 17 U/L Normal 13-35 [facility] Comment on above: Order Comment: Speci men Type: BLOOD SPECIMEN Ordering Facility: [facility] Address: [address] [place] [address] Performed By: #### 5 0190-8, 2131-12, 2275-07, 2283-11 #### [facility] CLIA [id number] [address] [place] [address] [place] Bilirubin [Mass/Vol] 0.2 mg/dL Normal 0.2-1.3 [facility] Comment on above: Order Comment: Speci men Type: BLOOD SPECIMEN Ordering Facility: [facility] Address: [address] [place] [address] Performed By: #### 5 0190-8, 2131-12, 2275-07, 2283-11 #### [facility] CLIA [id number] [address] [place] [address] [place] Calcium [Mass/Vol] 10.7 mg/dL High 8.5-10.2 [facility] Comment on above: Order Comment: Speci men Type: BLOOD SPECIMEN Ordering Facility: [facility] Address: [address] [place] [address] Result Comment: JENNIFER DOWLING JT Performed By: #### 5 0190-8, 2131-12, 2275-07, 2283-11 #### [facility] CLIA [id number] [address] [place] [address] [place] Chloride [Moles/Vol] 101 mmol/L Normal 97-105 [facility] Comment on above: Order Comment: Speci men Type: BLOOD SPECIMEN Ordering Facility: [facility] Address: [address] [place] [address] Performed By: #### 5 0190-8, 2-9, 6-4, 2284-8 #### [facility] CLIA [id number] [address] [place] [address] [place] CO2 [Moles/Vol] 24 mmol/L Normal 22-30 [facility] Comment on above: Order Comment: Speci men Type: BLOOD SPECIMEN Ordering Facility: [facility] Address: [address] [place] [address] Performed By: #### 5 0190-8, 2131-9, 6-4, 2284-8 #### [facility] CLIA [id number] [address] [place] [address] [place] Creatinine [Mass/Vol] 0.78 mg/dL Normal 0.58-0.96 [facility] Comment on above: Order Comment: Speci men Type: BLOOD SPECIMEN Ordering Facility: [facility] Address: [address] [place] [address] Performed By: #### 5 0190-8, 9, 6-4, 228-8 #### [facility] CLIA [id number] [address] [place] [address] [place] Creatinine and Glomerular filtration rate.predicted panel (S/P/Bld) 100 mL/min/1.73m??? Normal >=60 [facility] Comment on above: Order Comment: Speci men Type: BLOOD SPECIMEN Ordering Facility: [facility] Address: [address] [place] [address] Result Comment: Hawa mated Glomerular Filtration Rate [...] #### 5 0190-8, 2131-12, 2275-07, 2283-11 #### [facility] CLIA [id number] [address] [place] [address] [place] Glucose [Mass/Vol] 100 mg/dL High 74-99 [facility] Comment on above: Order Comment: Cesar redd Type: BLOOD SPECIMEN Ordering Facility: [facility] Address: [address] [place] [address] Result Comment: The [place] Diabetes Association (ADA) provides guidance for cutoff [...] Standards of Medical Care in Diabetes 2016, [place] [employer]. Diabetes Care. 2016.39(Suppl 1). Performed By: #### 5 0190-8, 2131-12, 2275-07, 2283-11 #### [facility] CLIA [id number] [address] [place] [address] [place] Potassium [Moles/Vol] 3.8 mmol/L Normal 3.7-5.1 [facility] Comment on above: Order Comment: Cesar redd Type: BLOOD SPECIMEN Ordering Facility: [facility] Address: [address] [place] [address] Performed By: #### 5 0190-8, 2131-12, 2275-07, 2283-11 #### [facility] CLIA [id number] [address] [place] [address] [place] Protein [Mass/Vol] 8.0 g/dL Normal 6.3-8.0 [facility] Comment on above: Order Comment: Speci men Type: BLOOD SPECIMEN Ordering Facility: [facility] Address: [address] [place] [address] Performed By: #### 5 0190-8, 9, 2275-4, 8 #### [facility] CLIA [id number] [address] [place] [address] [place] Sodium [Moles/Vol] 137 mmol/L Normal 136-144 [facility] Comment on above: Order Comment: Speci men Type: BLOOD SPECIMEN Ordering Facility: [facility] Address: [address] [place] [address] Performed By: #### 5 0190-8, 9, 2275-4, 8 #### [facility] CLIA [id number] [address] [place] [address] [place] Urea nitrogen [Mass/Vol] 10 mg/dL Normal 7-21 [facility] Comment on above: Order Comment: Speci men Type: BLOOD SPECIMEN Ordering Facility: [facility] Address: [address] [place] [address] Performed By: #### 5 0190-8, 9, 2275-4, 8 #### [facility] CLIA [id number] [address] [place] [address] [place] Ferritin SerPl-mCncon 2023 Ferritin [Mass/Vol] 52.2 ng/mL Normal 14.7-205.1 [facility] Comment on above: Order Comment: Speci men Type: BLOOD SPECIMEN Ordering Facility: [facility] Address: [address] [place] [address] Performed By: #### 5 0190-8, 2131-9, 2275-4, 8 #### [facility] CLIA [id number] [address] [place] [address] [place] Folate SerPl-ncon 05-28-19 Folate [Mass/Vol] ng/mL Normal >4.7 [facility] Comment on above: Order Comment: Speci men Type: BLOOD SPECIMEN Ordering Facility: [facility] Address: [address] [place] [address] Result Comment: A re sult of > 20 ng/mL is not necessarily indicative of a pathologic or treatable condition: it reflects a limitation of the test methodology. Assay reference range: 4.8 to 24.2 ng/mL. Suitable for detection of folate deficiency. Reference: Folate III (Folate III) [package insert V 1.0 [place]ger]. [facility], [place], [place]: February 2015. Performed By: #### 5 0190-8, 9, 2275-4, 2283-11 #### [facility] CLIA [id number] [address] [place] [address] [place] Iron and Iron binding capaci panel 05-28-2023 Iron [Mass/Vol] 68 ug/dL Normal 41-186 [facility] Comment on above: Order Comment: Speci men Type: BLOOD SPECIMEN Ordering Facility: [facility] Address: [address] [place] [address] Performed By: #### 5 0190-8, 9, 2275-07, 2283-11 #### [facility] CLIA [id number] [address] [place] [address] [place] Iron binding capacity [Mass/Vol] 386 ug/dL Normal 232-386 [facility] Comment on above: Order Comment: Speci men Type: BLOOD SPECIMEN Ordering Facility: [facility] Address: [address] [place] [address] Performed By: #### 5 0190-8, 9, 4, 2283-11 #### [facility] CLIA [id number] [address] [place] [address] [place] Iron/TIBC [Molar ratio] 17.6 % Normal 15.0-57.0 [facility] Comment on above: Order Comment: Speci men Type: BLOOD SPECIMEN Ordering Facility: [facility] Address: [address] [place] [address] Performed By: #### 5 0190-8, 2-9, 6-4, 8 #### [facility] CLIA [id number] [address] [place] [address] [place] Vit B12 [facility] 024 Cobalamin (Vitamin B12) [Mass/Vol] 370 pg/mL Normal 232-1245 [facility] Comment on above: Order Comment: Speci men Type: BLOOD SPECIMEN Ordering Facility: [facility] Address: [address] [place] [address] Performed By: #### 5 0190-8, 2131-9, 6-4, 2283-11 #### [facility] CLIA [id number] [address] [place] [address] [place] Ambulatory Visit Summaryon 0 [...] EDT With: Evans CASAS DO, FAAFP Where: [facility] Normal [facility] Office/Clini c Noteon 05-25-2023 Family [...] Benadryl. 2. 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 [...] FAAFP, CHRIS, PED In 2 months [address] [place], [facility] [place] [address]- Additional Instructions: Patient Education Eustachian Tube Dysfunction Dyshidrotic Eczema Allergies, Tadeo (more content not included)... Normal [facility] Comment on above: Result Comment: Elec tronically [...] ears completely after. General instructions ? Take dsnr-ndh-zdpdodj and prescription medicines only as told by [...] treated w (more content not included)... Normal [facility] C Urineon 05-03-2023 Bacteria identified Cx Nom [...] Locations R1: This test was performed at: [facility], [address] [place] [address], [address]- , [place], Normal [facility] Comment on above: Performed By: #### 2 211168 ####[address] [address] Consent for Treatmenton Consent for Treatment [id number] Normal [facility] Urinalysison 05-01-2023 Bacteria LM Ql (Urine sed) TRACE Normal Trace [facility] Comment on above: Performed By: #### 1 [id number] ####[address] [address] Bilirubin Ql (U) Negative Normal Negative [facility] Comment on above: Performed By: #### 1 [id number] ####[address] [address] Clarity (U) CLOUDY Abnormal Clear [facility] Comment on above: Performed By: #### 1 [id number] ####[address] [address] Color (U) YELLOW Normal Yellow [facility] Comment on above: Performed By: #### 1 [id number] ####[address] [address] Epithelial cells.squamous LM.HPF (Urine sed) [#/Area] /[HPF] Normal 0-2 [facility] Comment on above: Performed By: #### 1 [id number] ####[address] [address] Glucose Test strip (U) [Mass/Vol] Negative Normal Negative [facility] Comment on above: Performed By: #### 1 [id number] ####[address] [address] Hemoglobin Ql (U) Negative Normal Negative [facility] Comment on above: Performed By: #### 1 5941202 ####[address] [address] Ketones (U) [Mass/Vol] Negative Normal Negative [facility] Comment on above: Performed By: #### 1 1713485 ####[address] [address] Cecil-Bishop.plasma/Lithi um.RBC (Bld) [Mass ratio] 0-3 Normal 0-3 [facility] Comment on above: Performed By: #### 1 5133438 ####[address] [address] Nitrite Ql (U) Negative Normal Negative [facility] Comment on above: Performed By: #### 1 1432344 ####[address] [address] pH (U) 6.0 [pH] Invalid Interpretation Code 5.0-9.0 [facility] Comment on above: Performed By: #### 1 [id number] ####[address] [address] Protein (U) [Mass/Vol] Negative Normal Negative [facility] Comment on above: Performed By: #### 1 [id number] ####[address] [address] Specific gravity (U) [Rel density] <=1.005 Invalid Interpretation Code 1.005-1.030 [facility] Comment on above: Performed By: #### 1 [id number] ####[address] [address] Type of Urine collection method Clean Catch Normal [facility] Comment on above: Performed By: #### 1 7323063 ####[address] [address] Urobilinogen Qn (U) 0.2 {Nicole'U}/dL Normal 0.0-1.0 [facility] Comment on above: Performed By: #### 1 [id number] ####[facility] [address] [place] [address] WBC Auto Ql (U) TRACE Abnormal Negative [facility] Comment on above: Performed By: #### 1 [id number] ####[facility] [address] [place] [address] WBC LM.HPF (Urine sed) [#/Area] 0-5 Normal 0-5 [facility] Comment on above: Performed By: #### 1 [id number] ####[facility] [address] [place] [address] Ambulatory Visit Summaryon 1 Ambulatory Visit Summary [...] EST With: Evans CASAS DO, FAAFP Where: [facility] Normal [facility] CHEMISTRYOrdered By: SYSTEM SYSTEM on 04-27-2023 TSH [...] feeding. No loss of taste nor smell. [id number] while taking Glucophage XR 500 mg p.o. [...] Push fluids and Tylenol and or ibuprofen jsbt-qwn-cqpfphi as directed. Patient does not appear ill [...] weight manag (more content not included)... Normal [facility] Comment on above: Result Comment: Elec tronically [...] plan? Your health care provider or certified public accountant can help you make a plan for [...] stroke). Where to find more information ? [place] [employer] Association: www.diabetes.org Summary ? Exercising regularly is important for overall health, especially for people who have diabetes mellitus. ? Exercising has many health benefits. It increases muscle strength and bone density and reduces body fat and stress. It also lowers and controls blood glucose. ? Your health care provider or certified public accountant can help you make an activity plan [...] provider. Document Revised: 01/12/2020 Document Reviewed: 01/12/2020 [employer] Patient Education ? 2022 [employer] Preventing Hypoglycemia Hypoglycemia occurs when the level of sugar (glucose) in the blood is too low. Hypoglycemia can happen in people who do or do not have diabetes (diabetes (more content not included)... Normal [facility] TSHon 04-27-2023 TSH Qn 4.04 m[IU]/L Normal 0.34-5.60 [facility] Comment on above: Performed By: #### 2 [id number] ####[facility] [address] [place] [address] 25(OH)D[address] [facility] 2022 25-hydroxyvitamin D3 [Mass/Vol] 23.6 ng/mL Low 31.0-80.0 [facility] Comment on above: Order Comment: Speci men Type: BLOOD SPECIMEN Ordering Facility: [facility] Address: [address] [place] [address] Result Comment: Clas sification of 25 [place] Vitamin D status: Deficiency/Insufficiency: < or = 30 ng/ml. Sufficiency/Optimal Levels: 31-80 ng/mL Toxicity: > 100 ng/mL. Test performed by chemiluminescent immunoassay. Performed By: #### 5 0190-8, 2132-9, 2276-4, 2284-8 #### [facility] CLIA [id number] [address] [place] [address] [place] [address] [place] CBC W Auto Differential pane l (Bld)on 03-13-2023 Basophils (Bld) [#/Vol] 0.03 10*3/uL Normal <0.11 [facility] Comment on above: Order Comment: Speci men Type: BLOOD SPECIMEN Ordering Facility: [facility] Address: [address] [place] [address] Performed By: #### 5 0190-8, 9, 2275-4, 8 #### [facility] CLIA [id number] [address] [place] [address] [place] Basophils/100 WBC (Bld) 0.4 % Normal [facility] Comment on above: Order Comment: Speci men Type: BLOOD SPECIMEN Ordering Facility: [facility] Address: [address] [place] [address] Performed By: #### 5 0190-8, 9, 4, 8 #### [facility] CLIA [id number] [address] [place] [address] [place] Differential cell count method Nom (Bld) Auto Normal [facility] Comment on above: Order Comment: Speci men Type: BLOOD SPECIMEN Ordering Facility: [facility] Address: [address] [place] [address] Performed By: #### 5 0190-8, 9, 4, 8 #### [facility] CLIA [id number] [address] [place] [address] [place] Eosinophils (Bld) [#/Vol] 0.05 10*3/uL Normal <0.46 [facility] Comment on above: Order Comment: Speci men Type: BLOOD SPECIMEN Ordering Facility: [facility] Address: [address] [place] [address] Performed By: #### 5 0190-8, 9, 4, 8 #### [facility] CLIA [id number] [address] [place] [address] [place] Eosinophils/100 WBC (Bld) 0.7 % Normal [facility] Comment on above: Order Comment: Speci men Type: BLOOD SPECIMEN Ordering Facility: [facility] Address: [address] [place] [address] Performed By: #### 5 0190-8, 9, 2275-4, 8 #### [facility] CLIA [id number] [address] [place] [address] [place] Erythrocyte distribution width (RBC) [Ratio] 13.3 % Normal 11.5-15.0 [facility] Comment on above: Order Comment: Speci men Type: BLOOD SPECIMEN Ordering Facility: [facility] Address: [address] [place] [address] Performed By: #### 5 0190-8, 9, 4, 8 #### [facility] CLIA [id number] [address] [place] [address] [place] Hematocrit (Bld) [Volume fraction] 39.3 % Normal 36.0-46.0 [facility] Comment on above: Order Comment: Speci men Type: BLOOD SPECIMEN Ordering Facility: [facility] Address: [address] [place] [address] Performed By: #### 5 0190-8, 9, 4, 8 #### [facility] CLIA [id number] [address] [place] [address] [place] Hemoglobin (Bld) [Mass/Vol] 13.3 g/dL Normal 11.5-15.5 [facility] Comment on above: Order Comment: Speci men Type: BLOOD SPECIMEN Ordering Facility: [facility] Address: [address] [place] [address] Performed By: #### 5 0190-8, 9, 2275-4, 8 #### [facility] CLIA [id number] [address] [address] [place] Immature granulocytes (Bld) [#/Vol] 10*3/uL Normal <0.10 [facility] Comment on above: Order Comment: Speci men Type: BLOOD SPECIMEN Ordering Facility: [facility] Address: [address] [place] [address] Performed By: #### 5 0190-8, 2131-9, 4, 8 #### [facility] CLIA [id number] [address] [place] [address] [place] Immature granulocytes/100 WBC (Bld) 0.3 % Normal [facility] Comment on above: Order Comment: Speci men Type: BLOOD SPECIMEN Ordering Facility: [facility] Address: [address] [place] [address] Performed By: #### 5 0190-8, 9, 2275-07, 2283-11 #### [facility] CLIA [id number] [address] [place] [address] [place] Lymphocytes (Bld) [#/Vol] 3.05 10*3/uL Normal 1.00-4.00 [facility] Comment on above: Order Comment: Speci men Type: BLOOD SPECIMEN Ordering Facility: [facility] Address: [address] [place] [address] Performed By: #### 5 0190-8, 9, 2275-07, 2283-11 #### [facility] CLIA [id number] [address] [place] [address] [place] Lymphocytes/100 WBC (Bld) 40.4 % Normal [facility] Comment on above: Order Comment: Speci men Type: BLOOD SPECIMEN Ordering Facility: [facility] Address: [address] [place] [address] Performed By: #### 5 0190-8, 9, 4, 8 #### [facility] CLIA [id number] [address] [place] [address] [place] MCH (RBC) [Entitic mass] 29.2 pg Normal 26.0-34.0 [facility] Comment on above: Order Comment: Speci men Type: BLOOD SPECIMEN Ordering Facility: [facility] Address: [address] [place] [address] Performed By: #### 5 0190-8, 9, 2275-07, 2283-11 #### [facility] CLIA [id number] [address] [place] [address] [place] MCHC (RBC) [Mass/Vol] 33.8 g/dL Normal 30.5-36.0 [facility] Comment on above: Order Comment: Speci men Type: BLOOD SPECIMEN Ordering Facility: [facility] Address: [address] [place] [address] Performed By: #### 5 0190-8, 9, 2275-07, 2283-11 #### [facility] CLIA [id number] [address] [place] [address] [place] MCV (RBC) [Entitic vol] 86.2 fL Normal 80.0-100.0 [facility] Comment on above: Order Comment: Speci men Type: BLOOD SPECIMEN Ordering Facility: [facility] Address: [address] [place] [address] Performed By: #### 5 0190-8, 9, 2275-07, 2283-11 #### [facility] CLIA [id number] [address] [place] [address] [place] Monocytes (Bld) [#/Vol] 0.63 10*3/uL Normal <0.87 [facility] Comment on above: Order Comment: Speci men Type: BLOOD SPECIMEN Ordering Facility: [facility] Address: [address] [place] [address] Performed By: #### 5 0190-8, 9, 2275-07, 2283-11 #### [facility] CLIA [id number] [address] [place] [id number] [place] Monocytes/100 WBC (Bld) 8.3 % Normal [facility] Comment on above: Order Comment: Speci men Type: BLOOD SPECIMEN Ordering Facility: [facility] Address: [address] [place] [address] Performed By: #### 5 0190-8, 9, 2275-07, 2283-11 #### [facility] CLIA [id number] [address] [place] [address] [place] Neutrophils (Bld) [#/Vol] 3.77 10*3/uL Normal 1.45-7.50 [facility] Comment on above: Order Comment: Speci men Type: BLOOD SPECIMEN Ordering Facility: [facility] Address: [address] [place] [address] Performed By: #### 5 0190-8, 9, 2275-07, 2283-11 #### [facility] CLIA [id number] [address] [place] [address] [place] Neutrophils/100 WBC (Bld) 49.9 % Normal [facility] Comment on above: Order Comment: Speci men Type: BLOOD SPECIMEN Ordering Facility: [facility] Address: [address] [place] [address] Performed By: #### 5 0190-8, 9, 2275-07, 2283-11 #### [facility] CLIA [id number] [address] [place], [place] [address] [place] Nucleated RBC (Bld) [#/Vol] 10*3/uL Normal <0.01 [facility] Comment on above: Order Comment: Speci men Type: BLOOD SPECIMEN Ordering Facility: [facility] Address: [address] [place] [address] Performed By: #### 5 0190-8, 9, 2275-07, 2283-11 #### [facility] CLIA [id number] [address] [place], [place] [address] [place] Nucleated RBC/100 WBC (Bld) [Ratio] 0.0 /100 WBC Normal [facility] Comment on above: Order Comment: Speci men Type: BLOOD SPECIMEN Ordering Facility: [facility] Address: [address] [place] [address] Performed By: #### 5 0190-8, 9, 2275-07, 2283-11 #### [facility] CLIA [id number] [address] [place] [address] [place] Platelet mean volume (Bld) [Entitic vol] 9.7 fL Normal 9.0-12.7 [facility] Comment on above: Order Comment: Speci men Type: BLOOD SPECIMEN Ordering Facility: [facility] Address: [address] [place] [address] Performed By: #### 5 0190-8, 9, 2275-07, 2283-11 #### [facility] CLIA [id number] [address] [place] [address] [place] Platelets (Bld) [#/Vol] 335 10*3/uL Normal 150-400 [facility] Comment on above: Order Comment: Speci men Type: BLOOD SPECIMEN Ordering Facility: [facility] Address: [address] [place] [address] Performed By: #### 5 0190-8, 9, 2275-07, 8 #### [facility] CLIA [id number] [address] [place] [address] [place] RBC (Bld) [#/Vol] 4.56 10*6/uL Normal 3.90-5.20 [facility] Comment on above: Order Comment: Speci men Type: BLOOD SPECIMEN Ordering Facility: [facility] Address: [address] [place] [address] Performed By: #### 5 0190-8, 9, 2275-4, 8 #### [facility] CLIA [id number] [address] [place] [address] [place] WBC (Bld) [#/Vol] 7.55 10*3/uL Normal 3.70-11.00 [facility] Comment on above: Order Comment: Speci men Type: BLOOD SPECIMEN Ordering Facility: [facility] Address: [address] [place] [address] Performed By: #### 5 0190-8, 9, 2275-4, 8 #### [facility] CLIA [id number] [address] [place] [address] [place] Comprehensive metabolic 2000 panelon 03-13-2023 Albumin [Mass/Vol] 4.9 g/dL Normal 3.9-4.9 [facility] Comment on above: Order Comment: Speci men Type: BLOOD SPECIMEN Ordering Facility: [facility] Address: [address] [place] [address] Performed By: #### 5 0190-8, 9, 4, 8 #### [facility] CLIA [id number] [address] [place] [address] [place] ALP [Catalytic activity/Vol] 88 U/L Normal 34-123 [facility] Comment on above: Order Comment: Speci men Type: BLOOD SPECIMEN Ordering Facility: [facility] Address: [address] [place] [address] Performed By: #### 5 0190-8, 9, 2275-4, 8 #### [facility] CLIA [id number] [address] [place] [address] [place] ALT [Catalytic activity/Vol] 25 U/L Normal 7-38 [facility] Comment on above: Order Comment: Speci men Type: BLOOD SPECIMEN Ordering Facility: [facility] Address: [address] [place] [address] Performed By: #### 5 0190-8, 2131-9, 6-4, 2284-8 #### [facility] CLIA [id number] [address] [place] [address] [place] Anion gap [Moles/Vol] 12 mmol/L Normal 9-18 [facility] Comment on above: Order Comment: Speci men Type: BLOOD SPECIMEN Ordering Facility: [facility] Address: [address] [place] [address] Performed By: #### 5 0190-8, 2131-9, 6-4, 2284-8 #### [facility] CLIA [id number] [address] [place] [address] [place] AST [Catalytic activity/Vol] 18 U/L Normal 13-35 [facility] Comment on above: Order Comment: Speci men Type: BLOOD SPECIMEN Ordering Facility: [facility] Address: [address] [place] [address] Performed By: #### 5 0190-8, 2131-9, 6-4, 2284-8 #### [facility] CLIA [id number] [address] [place] [address] [place] Bilirubin [Mass/Vol] 0.2 mg/dL Normal 0.2-1.3 [facility] Comment on above: Order Comment: Speci men Type: BLOOD SPECIMEN Ordering Facility: [facility] Address: [address] [place] [address] Performed By: #### 5 0190-8, 2131-9, 6-4, 2284-8 #### [facility] CLIA [id number] [address] [place] [address] [place] Calcium [Mass/Vol] 10.0 mg/dL Normal 8.5-10.2 [facility] Comment on above: Order Comment: Speci men Type: BLOOD SPECIMEN Ordering Facility: [facility] Address: [address] [place], [place] [address] Performed By: #### 5 0190-8, 2131-9, 6-4, 2284-8 #### [facility] CLIA [id number] [address] [place] [address] [place] Chloride [Moles/Vol] 101 mmol/L Normal 97-105 [facility] Comment on above: Order Comment: Speci men Type: BLOOD SPECIMEN Ordering Facility: [facility] Address: [address] [place] [address] Performed By: #### 5 0190-8, 2131-9, 6-4, 228-8 #### [facility] CLIA [id number] [address] [place] [address] [place] CO2 [Moles/Vol] 23 mmol/L Normal 22-30 [facility] Comment on above: Order Comment: Speci men Type: BLOOD SPECIMEN Ordering Facility: [facility] Address: [address] [place] [address] Performed By: #### 5 0190-8, 2131-9, 6-4, 2284-8 #### [facility] CLIA [id number] [address] [place] [address] [place] Creatinine [Mass/Vol] 0.81 mg/dL Normal 0.58-0.96 [facility] Comment on above: Order Comment: Speci men Type: BLOOD SPECIMEN Ordering Facility: [facility] Address: [address] [place] [address] Performed By: #### 5 0190-8, 2131-9, 6-4, 228-8 #### [facility] CLIA [id number] [address] [place] [address] [place] Creatinine and Glomerular filtration rate.predicted panel (S/P/Bld) 96 mL/min/1.73m??? Normal >=60 [facility] Comment on above: Order Comment: Speci men Type: BLOOD SPECIMEN Ordering Facility: [facility] Address: [facility] [place] [address] Result Comment: Haaw mated Glomerular Filtration Rate (eGFR) is calculated [...] #### 5 0190-8, 9, 2275-07, 2283-11 #### [facility] CLIA [id number] [address] [place] [address] [place] Glucose [Mass/Vol] 87 mg/dL Normal 74-99 [facility] Comment on above: Order Comment: Cesar redd Type: BLOOD SPECIMEN Ordering Facility: [facility] Address: [address] [place] [address] Result Comment: The [place] [employer] (ADA) provides guidance for cutoff [...] Standards of Medical Care in Diabetes 2016, [place] [employer]. Diabetes Care. 2016.39(Suppl 1). Performed By: #### 5 0190-8, 9, 2275-07, 2283-11 #### [facility] CLIA [id number] [address] [place] [address] [place] Potassium [Moles/Vol] 4.3 mmol/L Normal 3.7-5.1 [facility] Comment on above: Order Comment: Cesar redd Type: BLOOD SPECIMEN Ordering Facility: [facility] Address: [address] [place] [address] Performed By: #### 5 0190-8, 2131-9, 2275-4, 8 #### [facility] CLIA [id number] [address] [place] [address] [place] Protein [Mass/Vol] 7.7 g/dL Normal 6.3-8.0 [facility] Comment on above: Order Comment: Speci men Type: BLOOD SPECIMEN Ordering Facility: [facility] Address: [address] [place] [address] Performed By: #### 5 0190-8, 2131-9, 2275-4, 8 #### [facility] CLIA [id number] [address] [place] [address] [place] Sodium [Moles/Vol] 136 mmol/L Normal 136-144 [facility] Comment on above: Order Comment: Speci men Type: BLOOD SPECIMEN Ordering Facility: [facility] Address: [address] [place] [address] Performed By: #### 5 0190-8, 2131-9, 4, 8 #### [facility] CLIA [id number] [address] [place] [address] [place] Urea nitrogen [Mass/Vol] 11 mg/dL Normal 7-21 [facility] Comment on above: Order Comment: Speci men Type: BLOOD SPECIMEN Ordering Facility: [facility] Address: [address] [place] [address] Performed By: #### 5 0190-8, 2131-9, 2275-4, 8 #### [facility] CLIA [id number] [address] [place] [address] [place] Ferritin SerPl-mCncon 2022 Ferritin [Mass/Vol] 58.0 ng/mL Normal 14.7-205.1 [facility] Comment on above: Order Comment: Speci men Type: BLOOD SPECIMEN Ordering Facility: [facility] Address: [address] [place], [place] [address] Performed By: #### 5 0190-8, 9, 2275-07, 2283-11 #### [facility] CLIA [id number] [address] [place], [place] [address] [place] Folate SerPl-ncon 03-13-20 Folate [Mass/Vol] 18.5 ng/mL Normal >4.7 [facility] Comment on above: Order Comment: Speci men Type: BLOOD SPECIMEN Ordering Facility: [facility] Address: [address] [place] [address] Performed By: #### 5 0190-8, 2131-12, 2275-07, 2283-11 #### [facility] CLIA [id number] [address] [place] [address] [place] Iron and Iron binding capaci ty panel 03-13-2023 Iron [Mass/Vol] 55 ug/dL Normal 41-186 [facility] Comment on above: Order Comment: Speci men Type: BLOOD SPECIMEN Ordering Facility: [facility] Address: [address] [place] [address] Performed By: #### 5 0190-8, 2131-12, 2275-07, 2283-11 #### [facility] CLIA [id number] [address] [place] [address] [place] Iron binding capacity [Mass/Vol] 365 ug/dL Normal 232-386 [facility] Comment on above: Order Comment: Speci men Type: BLOOD SPECIMEN Ordering Facility: [facility] Address: [address] [place] [address] Performed By: #### 5 0190-8, 2131-12, 2275-07, 2283-11 #### [facility] CLIA [id number] [address] [place], [place] [address] [place] Iron/TIBC [Molar ratio] 15.1 % Normal 15.0-57.0 [facility] Comment on above: Order Comment: Speci men Type: BLOOD SPECIMEN Ordering Facility: [facility] Address: [address] [place] [address] Performed By: #### 5 0190-8, 9, 6-4, 8 #### [facility] CLIA [id number] [address] [place] [address] OF [facility] Vit B12 [facility] 11-14-2 023 Cobalamin (Vitamin B12) [Mass/Vol] 376 pg/mL Normal 232-1245 [facility] Comment on above: Order Comment: Speci men Type: BLOOD SPECIMEN Ordering Facility: [facility] Address: [address] [place] [address] Performed By: #### 5 0190-8, 9, 4, 2283-11 #### [facility] CLIA [id number] [address] [place] [address] [place] Ambulatory Visit Summaryon 1 Ambulatory [...] PED When: In 2 months Where: [address] [place] [address]- You Need to Complete the Following HgbA1c, [...] Suspected COVID-19 virus infection Vaginal tabitha Normal [facility] Family Medicine Office/Clini c Noteon 02-15-2023 Family Medicine Office/Clinic Note Chief Complaint States since Sunday evening her right ear is draining and is a little painful History of Present Illness [employer] Specialist draining since Sunday evening and a little [...] pain of ear shake well before using, [facility], 168, cm, 02/15/23 9:49:00 EDT, [...] in , unspecified control) 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 She is continuing 500 mg of metformin [...] PRAVEEN Johnson (more content not included)... Normal [facility] Comment on above: Result Comment: Elec tronically [...] cannot use soap and water, use hand machine operations supervisor. 2. Make sure your ears are clean [...] cannot use soap and water, use hand machine operations supervisor. Follow these instructions at home: ? Use [...] provider. Document Revised: 02/11/2020 Document Reviewed: 02/11/2020 [employer] Patient Education ? 2022 [employer] Infectious Disease Otitis Externa Otitis externa [...] you start to feel better. ? Take zxdt-hoe-jraxoxz and prescription medicines only as told by your doctor. ? Avoid getting water in your ears as told by your doctor. You may be told to avoid swimming or water sports for a few days. ? Keep all follow-up visits. How is this prevented? ? Keep your ears dry. Use the corner o (more content not included)... Normal [facility] Patient Educationon 12-23-19 Patient Education Immunology Fatigue [...] these instructions at home: Medicines ? Take urqr-mbw-pdqwugo and prescription medicines only as told by [...] the National Suicide Prevention Lifeline at or 558. This is open 24 hours a day. ? Text the Crisis Text Line at 859468. Summary ? If you have fatigue, you [...] provider. Document Revised: 02/06/2022 Document Reviewed: 02/06/2022 [employer] Patient Education ? 2022 [employer] Urology Urodynamic Testing Urodynamic tests are [...] urine (inco (more content not included)... Normal [facility] CHEMISTRYOrdered By: SYSTEM SYSTEM on 09-26-2022 Free [...] 10 - 20 [facility] HEMATOLOGYOrdered By: [employer] SYSTEM on 09-26-2022 Basophils/100 WBC (Bld) 0.6 [...] - 5.60 mcIU/mL [facility] CHEMISTRYOrdered By: Mheran German on 09-05-2022 HbA1c (Bld) [Mass fraction] 5.9 % Normal <=5.9% [facility] CHEMISTRYOrdered By: SYSTEM SYSTEM on 08-07-2022 Free T4 [Mass/Vol] 0.71 ng/dL Normal 0.58 - 1. 64 ng/dL [facility] TSH Qn 3.77 m[IU]/L Normal 0.34 - 5.60 mcIU/mL [facility] CBC AUTO DIFFon 05-09-2022 BASO # 0.0 103/ul Normal 0.0-0.1 [facility] Comment on above: Performed By: #### H IV12 #### [facility] [address] [address] [address] Edward Gill Basophils/100 WBC (Bld) 0.4 % Normal 0.2-2.0 [facility] Comment on above: Performed By: #### H IV12 #### [facility] [address] [place] [address] Dr. Edward Gill EO # 0.1 103/ul Normal 0.0-0.7 [facility] Comment on above: Performed By: #### H IV12 #### [facility] [address] [place] [address] Dr. Edward Gill Eosinophils/100 WBC (Bld) 1.3 % Normal 0.9-7.0 [facility] Comment on above: Performed By: #### H IV12 #### [facility] [address] [place] [address] Dr. Edward Gill Erythrocyte distribution width (RBC) [Ratio] 16.6 % Critically high 11.0-15.0 [facility] Comment on above: Performed By: #### H IV12 #### [facility] [address] [place] [address] Dr. Edward Gill Hematocrit (Bld) [Volume fraction] 30.2 % Critically low 36.0-48.0 [facility] Comment on above: Performed By: #### H IV12 #### [facility] [address] [place] [address] Dr. Edward Gill Hemoglobin (Bld) [Mass/Vol] 10.5 g/dL Critically low 12.0-16.0 [facility] Comment on above: Performed By: #### H IV12 #### [facility] [address] [place] [address] Dr. Edward Gill IG # 0.04 10e3/ul Critically high 0.00-0.03 [facility] Comment on above: Performed By: #### H IV12 #### [facility] [address] [place] [address] Dr. Edward Gill IG % 0.4 % Normal 0.0-0.5 [facility] Comment on above: Performed By: #### H IV12 #### [facility] [address] [address] [address] Edward Gill LYMPH # 3.1 103/ul Normal 1.2-3.8 [facility] Comment on above: Performed By: #### H IV12 #### [facility] [address] [address] [address] Edward Gill Lymphocytes/100 WBC (Bld) 34.2 % Normal 20.5-60.0 [facility] Comment on above: Performed By: #### H IV12 #### [facility] [address] [address] [address] Edward Gill MANUAL DIFF REQ NO Normal [facility] Comment on above: Performed By: #### H IV12 #### [facility] [address] [place] [address] Dr. Edward Gill MCH (RBC) [Entitic mass] 30.3 pg Normal 26.7-34.0 [facility] Comment on above: Performed By: #### H IV12 #### [facility] [address] [place] [address] Dr. Edward Gill MCHC (RBC) [Mass/Vol] 34.8 g/dL Normal 29.9-35.2 [facility] Comment on above: Performed By: #### H IV12 #### [facility] [address] [place] [address] Dr. Edward Gill MCV (RBC) [Entitic vol] 87.0 fL Normal 81.0-99.0 [facility] Comment on above: Performed By: #### H IV12 #### [facility] [address] [address] [address] Edward Gill MONO # 0.7 103/ul Normal 0.3-0.8 [facility] Comment on above: Performed By: #### H IV12 #### [facility] [address] [place] [address] Dr. Edward Gill Monocytes/100 WBC (Bld) 7.5 % Normal 1.7-12.0 [facility] Comment on above: Performed By: #### H IV12 #### [facility] [address] [place] [address] Dr. Edward Gill NEUT # 5.0 103/ul Normal 1.4-6.5 [facility] Comment on above: Performed By: #### H IV12 #### [facility] [address] [place] [address] Dr. Edward Gill Neutrophils/100 WBC (Bld) 56.2 % Normal 43.0-75.0 [facility] Comment on above: Performed By: #### H IV12 #### [facility] [address] [place] [address] Dr. Edward Gill Platelet mean volume (Bld) [Entitic vol] 9.8 fL Normal 9.5-13.5 [facility] Comment on above: Performed By: #### H IV12 #### [facility] [address] [place] [address] Dr. Edward Gill PLT 238 103/ul Normal 150-450 [facility] Comment on above: Performed By: #### H IV12 #### [facility] [address] [place] [address] Dr. Edward Gill RBC 3.47 106/ul Critically low 4.20-5.40 [facility] Comment on above: Performed By: #### H IV12 #### [facility] [address] [place] [address] Dr. Edward Gill WBC 9.0 103/ul Normal 4.0-11.0 [facility] Comment on above: Performed By: #### H IV12 #### [facility] [address] [place] [address] Dr. Edward Gill SCREENon 05-09-2022 SCREEN Negative Normal [facility] Comment on above: Performed By: #### F ETSCRN #### [facility] [address] [place] [address] Dr. Edward Gill DIRECT COOMBSon 05-08-2022 DIRECT ALEJANDRA Negative Normal [facility] Comment on above: Performed By: #### D IRCMB #### [facility] [address] [place] [address] Dr. Edward iGll POINT OF CARE GLUCOSEon Glucose [Mass/Vol] 117 mg/dL Critically high 74-106 [facility] Comment on above: Performed By: #### P OCGLUC ####[facility] [id number] [address]Dr[address] Edward Gill TYPE AND SCREENon 05-08-2022 TYPE AND SCREEN Negative Normal [facility] Comment on above: Performed By: #### T NS #### [facility] [address] [address] [address] Edward Gill CBC AUTO DIFFon 05-07-2022 BASO # 0.0 103/ul Normal 0.0-0.1 [facility] Comment on above: Performed By: #### H IV12 #### [facility] [address] [address] [address] Edward Gill Basophils/100 WBC (Bld) 0.2 % Normal 0.2-2.0 [facility] Comment on above: Performed By: #### H IV12 #### [facility] [address] [address] [address] Edward Gill EO # 0.0 103/ul Normal 0.0-0.7 [facility] Comment on above: Performed By: #### H IV12 #### [facility] [address] [address] [address] Edward Gill Eosinophils/100 WBC (Bld) 0.5 % Critically low 0.9-7.0 [facility] Comment on above: Performed By: #### H IV12 #### [facility] [address] [address] [address] Edward Gill Erythrocyte distribution width (RBC) [Ratio] 16.1 % Critically high 11.0-15.0 [facility] Comment on above: Performed By: #### H IV12 #### [facility] [address] [address] [address] Edward Gill Hematocrit (Bld) [Volume fraction] 32.1 % Critically low 36.0-48.0 [facility] Comment on above: Performed By: #### H IV12 #### [facility] [address] [place] [address] Dr. Edward Gill Hemoglobin (Bld) [Mass/Vol] 11.7 g/dL Critically low 12.0-16.0 [facility] Comment on above: Performed By: #### H IV12 #### [facility] [address] [place] [address] Dr. Edward Gill IG # 0.04 10e3/ul Critically high 0.00-0.03 [facility] Comment on above: Performed By: #### H IV12 #### [facility] [address] [place] [address] Dr. Edward Gill IG % 0.5 % Normal 0.0-0.5 [facility] Comment on above: Performed By: #### H IV12 #### [facility] [address] [place] [address] Dr. Edward Gill LYMPH # 2.4 103/ul Normal 1.2-3.8 [facility] Comment on above: Performed By: #### H IV12 #### [facility] [address] [place] [address] Dr. Edward Gill Lymphocytes/100 WBC (Bld) 27.2 % Normal 20.5-60.0 [facility] Comment on above: Performed By: #### H IV12 #### [facility] [address] [place] [address] Dr. Edward Gill MANUAL DIFF REQ NO Normal [facility] [place] [facility] Comment on above: Performed By: #### H IV12 #### [facility] [address] [place] [address] Dr. Edward Gill MCH (RBC) [Entitic mass] 30.0 pg Normal 26.7-34.0 [facility] Comment on above: Performed By: #### H IV12 #### [facility] [address] [place] [address] Dr. Edward Gill MCHC (RBC) [Mass/Vol] 36.4 g/dL Critically high 29.9-35.2 [facility] Comment on above: Performed By: #### H IV12 #### [facility] [address] [address] [address] Edward Gill MCV (RBC) [Entitic vol] 82.3 fL Normal 81.0-99.0 [facility] Comment on above: Performed By: #### H IV12 #### [facility] [address] [address] [address] Edward Gill MONO # 0.7 103/ul Normal 0.3-0.8 [facility] Comment on above: Performed By: #### H IV12 #### [facility] [address] [address] [address] Edward Gill Monocytes/100 WBC (Bld) 7.7 % Normal 1.7-12.0 [facility] Comment on above: Performed By: #### H IV12 #### [facility] [address] [place] [address] Dr. Edward Gill NEUT # 5.5 103/ul Normal 1.4-6.5 [facility] Comment on above: Performed By: #### H IV12 #### [facility] [address] [place] [address] Dr. Edward Gill Neutrophils/100 WBC (Bld) 63.9 % Normal 43.0-75.0 [facility] Comment on above: Performed By: #### H IV12 #### [facility] [address] [place] [address] Dr. Edward Gill Platelet mean volume (Bld) [Entitic vol] 10.0 fL Normal 9.5-13.5 [facility] Comment on above: Performed By: #### H IV12 #### [facility] [address] [place] [address] Dr. Edward Gill PLT 274 103/ul Normal 150-450 [facility] Comment on above: Performed By: #### H IV12 #### [facility] [address] [address] [address] Edward Gill RBC 3.90 106/ul Critically low 4.20-5.40 [facility] Comment on above: Performed By: #### H IV12 #### [facility] [address] [address] [address] Edward Gill WBC 8.7 103/ul Normal 4.0-11.0 [facility] Comment on above: Performed By: #### H IV12 #### [facility] [address] [address] [address] Edward Gill Covid-19 PCR ([facility])on SARS-CoV-2 (COVID-19) RNA LELO+probe Ql (Unsp spec) Not detected Normal NOT DETECTED [facility] Comment on above: Result Comment: When [...] for this test is supported by the Program Consultant of Health and Human Service's declaration that [...] used). Performed By: #### H IV12 #### [facility] [address] [address] [address] Edward Gill DRUG SCREEN RAPID (URINE)on 05-07-2022 AMP Negative Normal NEGATIVE [facility] Comment on above: Performed By: #### D RUGRPD ####[facility] [address] [id number] Gill BAR Negative Normal NEGATIVE [facility] Comment on above: Performed By: #### D RUGRPD ####[facility] [address] [id number] Gill BUP Negative Normal NEGATIVE [facility] Comment on above: Performed By: #### D RUGRPD ####[facility] [address] [place], [place] [address]Dr. Edward Gill BZO Negative Normal NEGATIVE [facility] Comment on above: Performed By: #### D RUGRPD ####[facility] [address] [place], [place] [address]Dr. Edward Gill INDIA Negative Normal NEGATIVE [facility] Comment on above: Performed By: #### D RUGRPD ####[facility] [address] [place], [place] [address]Dr. Edward Gill CUT-OFFS SEE BELOW Normal [facility] Comment on above: Result Comment: AMP (Amphetamine): 500ng/mL, BAR (Barbituates): 200 ng/mL, BZO (Benzodiazepines): 150 ng/mL, BUP (Buprenorphine): 10 ng/mL, INDIA (Cocaine): 150 ng/mL, mAMP (Methamphetamine): 500 ng/mL, MTD (Methadone): 200 ng/mL, OPI (Opiates): 100 ng/mL, OXY (Oxycodone): 100 ng/mL, PCP (Phencyclidine): 25 ng/mL, PPX (Propoxyphene): 300 ng/mL, THC (Cannabinoids): 50 ng/mL, TCA (Trycyclic Antidepressants): 300 ng/mL Performed By: #### D RUGRPD ####[facility] [address] [place], [place] [address]Dr. Edward Gill DRUG CUT HEADER DRUG CLASS TEST SYST EM CUT-OFF CONCENTRATIONS ARE FOLLOWS: Normal [facility] Comment on above: Performed By: #### D RUGRPD ####[facility] [address] [place], [place] [address]Dr. Edward Gill mAMP Negative Normal NEGATIVE [facility] Comment on above: Performed By: #### D RUGRPD ####[facility] [address] [place], [place] [address]Dr. Edward Gill MTD Negative Normal NEGATIVE [facility] Comment on above: Performed By: #### D RUGRPD ####[facility] [address] [place], [place] [address]Dr. Edward Gill OPI Negative Normal NEGATIVE [facility] Comment on above: Performed By: #### D RUGRPD ####[facility] [address] [id number]. Yihermelindo Gill OXY Negative Normal NEGATIVE [facility] Comment on above: Performed By: #### D RUGRPD ####[facility] [address] [place], [place] [address]Ib. Yilan Gill PCP Negative Normal NEGATIVE [facility] Comment on above: Performed By: #### D RUGRPD ####[facility] [address] [id number]. Yihermelindo Gill PPX Negative Normal NEGATIVE [facility] Comment on above: Performed By: #### D RUGRPD ####[facility] [address] [address]Dr. Yihermelindo Gill TCA Negative Normal NEGATIVE [facility] Comment on above: Performed By: #### D RUGRPD ####[facility] [address] [address]Dr. Yihermelindo Gill THC Negative Normal NEGATIVE [facility] Comment on above: Performed By: #### D RUGRPD ####[facility] [address] [address]Dr. Edward Gill US PREG BIOPHY W NON [...] HUMERA KIM Date: 2022-05-06 19:05 Normal [facility] US PREG BIOPHY W NON STRESSo [...] by: ANGIE GALDAMEZ Date: 2022-05-01 16:16 Normal [facility] GROUP B STREP CULTUREon 03-31 S. agalactiae [...] R F Vancomycin =0.5 S F Normal [facility] Comment on above: Performed By: #### G BSCX ####[facility] [address] [place], [place] [address]Od. Edward Gill US PREG BIOPHY W NON [...] HUMERA KIM Date: 2022-04-17 17:08 Normal [facility] US PREG GROWTHon 04-17-2022 US PREG [...] HUMERA KIM Date: 2022-04-17 16:49 Normal [facility] US PREG BIOPHY W NON STRESSo [...] HUMERA KIM Date: 2022-04-12 08:56 Normal [facility] GLUCOSE, BLOOD (POC)on 04-05 Glucose [Mass/Vol] 106 mg/dL Abnormal 74 - 99 mg/dL [facility] US PREG BIOPHY W NON [...] HUMERA KIM Date: 2022-04-01 16:08 Normal [facility] US PREG BIOPHY W NON STRESSo [...] by: HUMERA KIM Date: 2022-03-27 08:54 Normal [facility] US PREG GROWTHon 03-17-2022 US PREG GROWTH [...] by: HUMERA KIM Date: 2022-03-17 06:04 Normal [facility] TSHon 02-25-2022 TSH 2.586 uIU/mL Normal 0.358-3.740 [facility] Comment on above: Performed By: #### H IV12 #### [facility] [address] [address] [address] Edward Gill TYPE AND SCREENon 02-25-2022 TYPE AND SCREEN Negative Normal [facility] Comment on above: Performed By: #### T NS #### [facility] [address] [address] [address] Edward Gill PAP ACOG PANEL 2: 30 to 65on 02-21-2022 . . Normal [facility] Comment on above: Result Comment: Perf ormed at: WB Performed By: #### 4 [id number] ####[facility] [address] [address]Dr. Edward Gill Age Gdln ACOG Testing 30-65 [facility] Comment on above: Performed By: #### 4 [id number] ####[facility] [address] [address]Dr. Edward Gill DIAGNOSIS: Comment Normal [facility] Comment on above: Result Comment: NEGA TIVE FOR INTRAEPITHELIAL LESION OR MALIGNANCY. Performed at: WB Performed By: #### 4 [id number] ####[facility] [address] [address]DrLazara Gill HPV Aptima Negative Normal Negative [facility] Comment on above: Result Comment: This nucleic acid amplification test detects fourteen high-risk HPV types (16,18,31,33,35,39,45,51,52,56,58,59,66,68) without differentiation. Performed at: =G Performed By: #### 4 [id number] ####[facility] [address] [address]DrLazara Gill Methodology: Comment Normal [facility] Comment on above: Result Comment: This liquid based ThinPrep(R) pap test was screened with the use of an image guided system. Performed at: WB Performed By: #### 4 [id number] ####[facility] [address] [address]DrLazara Gill Note: Comment Normal [facility] Comment on above: Result Comment: The Pap smear is a screening test designed to aid in the detection of premalignant and malignant conditions of the uterine cervix. It is not a diagnostic procedure and should not be used as the sole means of detecting cervical cancer. Both false-positive and false-negative reports do occur. . Performed at: WB Performed By: #### 4 [id number] ####[facility] [address] [address]Dr. Edward Gill Performed by: Comment Normal [facility] Comment on above: Result Comment: Zenaida Diop, Client Finance Analyst (ASCP) Performed at: WB Performed By: #### 4 [id number] ####[facility] [address] [place], [place] [address]Dr. Edward Gill Specimen adequacy: Comment Normal [facility] Comment on above: Result Comment: Sati sfactory for evaluation. No endocervical component is identified. Performed at: WB Performed By: #### 4 [id number] ####[facility] [address] [place], [place] [address]Dr. Edward Gill CHLAMYDIA/GONOCOCCUS LELO (SW AB/URINE/PAPon 02-16-2022 Chlamydia trachomatis, LELO Negative Normal Negative [facility] Comment on above: Performed By: #### C T/NGNA ####[facility] [address] [place], [place] [address]Dr. Alishahermelindo Gill Neisseria gonorrhoeae, LELO Negative Normal Negative [facility] Comment on above: Performed By: #### C T/NGNA ####[facility] [address] [place], [place] [address]Dr. Edward Gill VAGINITIS/VAGINOSIS DNA PROB [place] 02-16-2022 Tabitha species Negative Normal Negative [facility] [place] [facility] Comment on above: Performed By: #### V AGINT ####[facility] [address] [place], [place] [address]Dr. Alishahermelindo [facility] Gardnerella vaginalis Negative Normal Negative [facility] Comment on above: Performed By: #### V AGINT ####[facility] [address] [place], [place] [address]Dr. Alishahermelindo [facility] Trichomonas vaginalis Negative Normal Negative [facility] Comment on above: Performed By: #### V AGINT ####[facility] [address] [place], [place] [address]Su. Edward Gill TSHon 01-24-2022 TSH 1.536 uIU/mL Normal 0.358-3.740 [facility] Comment on above: Performed By: #### T SH ####[facility] [address] [address]Dr. Edward Gill GLUCOSE - 1HRon 01-07-2022 Glucose [Mass/Vol] 160 mg/dL Critically high 74-106 T [facility] Comment on above: Performed By: #### G LU1HR ####[facility] [address] [address]Dr. Edward Gill TSHon 12-28-2021 TSH 1.899 uIU/mL Normal 0.358-3.740 [facility] Comment on above: Performed By: #### H IV12 #### [facility] [address] [address] [address] Edward Gill AFP, Maternalon 11-24-2021 Determined by Ultrasound Normal [facility] Comment on above: Performed By: #### A AFPM #### [facility] [employer] [facility] [place], [place] [address] Rodent Exterminator: Pancho Cano MD [address] [address] Rodent Exterminator: Zhang lBedsoe MD Due Date SEE NOTE Normal [facility] Comment on above: Result Comment: Resu lts for Estimated Due Date: 05 13 22 Performed By: #### A AFPM #### [facility] [address] [place] [address] Rodent Exterminator: Pancho Cano MD [address] [address] Rodent Exterminator: Zhang Bledsoe MD Family History No Normal [facility] Comment on above: Performed By: #### A AFPM #### [address] [address] Rodent Exterminator: Pancho Cano MD [address] [phone] Rodent Exterminator: Zhang Bledsoe MD Gestat Age (exact) 15 wks, 2 days Normal [facility] Comment on above: Performed By: #### A AFPM #### [address] [address] Rodent Exterminator: Pancho Cano MD [address] [phone] Rodent Exterminator: Zhang Bledsoe MD Ins Req Matern Diab No [facility] Comment on above: Performed By: #### A AFPM #### [address] [address] Rodent Exterminator: Pancho Cano MD [address] [phone] Rodent Exterminator: Zhang Bledsoe MD Interpretation Screen Neg [facility] Comment on above: Result Comment: (NOT E) INTERPRETATION: SCREEN NEGATIVE for open spina bifida Neural Tube Defects (NTD) Negative Pre-Test Post-Test Cutoff Neural Tube Defects Risks 1:1030 1:2690 1:250 Comments: The risk of an open neural tube defect is less than the screening cut-off. This test was developed and its performance characteristics determined by [employer]. It has not been cleared or approved by the [place] Food and Drug Administration. This test was performed in a CLIA certified laboratory and is intended for clinical purposes. Performed By: #### A AFPM #### [address] [address] Rodent Exterminator: Pancho Cano MD [address] [phone] Rodent Exterminator: Zhang Bledsoe MD [age] [facility] Comment on above: Performed By: #### A AFPM #### [address] [address] Rodent Exterminator: Pancho Cano MD [facility] [address] [place] [address] Rodent Exterminator: Zhang Bledsoe MD Maternal Race Nonblack [facility] Comment on above: Performed By: #### A AFPM #### [address] [address] Rodent Exterminator: Pancho Cano MD [address] [address] Rodent Exterminator: Zhang Bledsoe MD Maternal Weight 228.0 lbs. [facility] Comment on above: Performed By: #### A AFPM #### [address] [address] Rodent Exterminator: Pancho Cano MD [address] [address] Rodent Exterminator: Zhang Bledsoe MD MoM for AFP 1.52 [facility] Comment on above: Performed By: #### A AFPM #### [address] [address] Rodent Exterminator: Pancho Cano MD [address] [address] Rodent Exterminator: Zhang Bledsoe MD Number of Fetuses [facility] Comment on above: Performed By: #### A AFPM #### [address] [address] Rodent Exterminator: Pancho Cano MD [facility] [address] [place] [address] Rodent Exterminator: Zhang Bledsoe MD Patient's AFP 35 ng/mL [facility] Comment on above: Performed By: #### A AFPM #### [address] [place] [address] Rodent Exterminator: Pancho Cano MD [address] [phone] Rodent Exterminator: Zhang Bledsoe MD Smoking No [facility] Comment on above: Performed By: #### A AFPM #### [address] [address] Rodent Exterminator: Pancho Cano MD [address] [phone] Rodent Exterminator: Zhang Bledsoe MD Specimen See Note [facility] Comment on above: Result Comment: (NOT E) Initial sample Performed by [facility], [address] [place] [id number] [email or web address], Yayo Moncada MD, PHD, Lab. Director Performed By: #### A AFPM #### [address] [address] Rodent Exterminator: Pancho Cano MD [address] [address] Rodent Exterminator: Zhang Bledsoe MD AFP, Maternalon 11-22-2021 Current Smoking [facility] Comment on above: Performed By: #### A AFPM #### [address] [address] Rodent Exterminator: Pancho Cano MD [address] [address] Rodent Exterminator: Zhang Bledsoe MD Dating US [facility] Comment on above: Performed By: #### A AFPM #### [address] [address] Rodent Exterminator: Pancho Cano MD [address] [phone] Rodent Exterminator: Zhang Bledsoe MD Diabetic NO [facility] Comment on above: Performed By: #### A AFPM #### [address] [address] Rodent Exterminator: Pancho Cano MD [facility] [address] [place] [address] Rodent Exterminator: Zhang Bledsoe MD Donor Egg INFORMATION NOT PROVIDED [facility] Comment on above: Performed By: #### A AFPM #### [address] [address] Rodent Exterminator: Pancho Cano MD [address] [address] Rodent Exterminator: Zhang Bledsoe MD Estimated Due Date [id number] [facility] Comment on above: Performed By: #### A AFPM #### [address] [address] Rodent Exterminator: Pancho Cano MD [address] [address] Rodent Exterminator: Zhang Bledsoe MD Family History Negative [facility] Comment on above: Performed By: #### A AFPM #### [address] [address] Rodent Exterminator: Pancho Cano MD [address] [address] Rodent Exterminator: Zhang Bledsoe MD In Vitro Fertalizat INFORMATION NOT PROVIDED [facility] Comment on above: Performed By: #### A AFPM #### [address] [address] Rodent Exterminator: Pancho Cano MD [facility] [address] [place] [address] Rodent Exterminator: Zhang Bledsoe MD LMP date [id number] [facility] Comment on above: Performed By: #### A AFPM #### [address] [address] Rodent Exterminator: Pancho Cano MD [facility] [address] [place] [address] Rodent Exterminator: Zhang Bledsoe MD Maternal date [id number] [facility] Comment on above: Performed By: #### A AFPM #### [address] [address] Rodent Exterminator: Pancho Cano MD [facility] [address] [place] [address] Rodent Exterminator: Zhang Bledsoe MD Maternal Weight 228 [facility] Comment on above: Performed By: #### A AFPM #### [address] [address] Rodent Exterminator: Pancho Cano MD [facility] [address] [place] [address] Rodent Exterminator: Zhang Bledsoe MD Monochorionic Twins NO [facility] Comment on above: Performed By: #### A AFPM #### [address] [address] Rodent Exterminator: Pancho Cano MD [address] [address] Rodent Exterminator: Zhang Bledsoe MD Patient Weight Units LBS [facility] Comment on above: Performed By: #### A AFPM #### [address] [address] Rodent Exterminator: Pancho Cano MD [facility] [address] [place] [address] Rodent Exterminator: Zhang Bledsoe MD Race (Maternal) WHITE [facility] Comment on above: Performed By: #### A AFPM #### [address] [address] Rodent Exterminator: Pancho Cano MD [address] [phone] Rodent Exterminator: Zhang Bledsoe MD Repeat Specimen INFORMATION NOT PROVIDED Normal [facility] Comment on above: Performed By: #### A AFPM #### [address] [address] Rodent Exterminator: Pancho Cano MD [facility] [address] [place] [address] Rodent Exterminator: Zhang Bledsoe MD Valproic/Carbamazep INFORMATION NOT PROVIDED Normal [facility] Comment on above: Performed By: #### A AFPM #### [address] [address] Rodent Exterminator: Pancho Cano MD [address] [address] Rodent Exterminator: Zhang Bledsoe MD MISCELLANEOUS TESTINGon 07- Send Out Report FWD TO [facility] TRK [phone] [facility] Test Name [facility] Miscellaneouson 11-21-2021 Send Out Report FWD TO [facility] TRK [phone] [facility] Comment on above: Performed By: #### C MIS #### [address] [address] Rodent Exterminator: Pancho Cano MD Test Name [facility] Comment on above: Performed By: #### C MIS #### [address] [address] Rodent Exterminator: Pancho Cano MD HEP B SURFACE ANTIGEN SCREEN on 10-26-2021 HBsAg Screen Negative Normal Negative [facility] Comment on above: Performed By: #### H IV12 #### [facility] [address] [place] [address] Dr. Edward Gill HEPATITIS C VIRUS AB W/ REFL EX QUANTon 10-26-2021 HCV AB <0.1 Normal 0.0-0.9 [facility] Comment on above: Performed By: #### H CVPCRR ####[facility] [address] [id number] Gill Interpretation: Comment Normal [facility] [place] [facility] Comment on above: Result Comment: Nega tive Not infected with HCV, unless recent infection is suspected or other evidence exists to indicate HCV infection. Performed By: #### H CVPCRR ####[facility] [address] [address]DrLazara Gill HIV 1 AND 2 WITH REFLEXon HIV Screen 4th Generation wRfx Non-Reactive Normal Non Reactive [facility] Comment on above: Result Comment: HIV Negative HIV-1/HIV-2 antibodies and HIV-1 p24 antigen were NOT detected. There is no laboratory evidence of HIV infection. Performed By: #### H IV12 #### [facility] [address] [address] [address] Edward Gill RPR QUANTon 10-26-2021 Rapid Plasma Reagin, Quant Non-Reactive Normal NonRea<1:1 [facility] Comment on above: Result Comment: Plea se Note: This test does not meet current guidelines for screening and diagnosis of syphilis. This test is intended for following treatment response in patients being treated for syphilis infection. To screen for syphilis infection, a reflex cascade that includes both RPR and a treponema-specific assay should be utilized, such as Treponema pallidum (Syphilis) Screening [facility] (830227) or Rapid Plasma Reagin (RPR) Test With Reflex to Quantitative RPR and Confirmatory Treponema pallidum Antibodies (111173). Performed By: #### R PRQ ####[facility] [address] [address]DrLazara Gill RUBELLA AB IGGon 10-26-2021 Rubella Antibodies, IgG 1.02 index Normal Immune >0.99 [facility] Comment on above: Result Comment: Non- immune <0.90 Equivocal 0.90 - 0.99 Immune >0.99 Performed By: #### R UBIGG ####[facility] [address] [address]Dr. Edward Gill CBC AUTO DIFFon 10-25-2021 BASO # 0.0 103/ul Normal 0.0-0.1 [facility] Comment on above: Performed By: #### H IV12 #### [facility] [address] [address] [address] Edward Gill Basophils/100 WBC (Bld) 0.3 % Normal 0.2-2.0 [facility] Comment on above: Performed By: #### H IV12 #### [facility] [address] [place] [address] Dr. Edward Gill EO # 0.1 103/ul Normal 0.0-0.7 [facility] Comment on above: Performed By: #### H IV12 #### [facility] [address] [place] [address] Dr. Edward Gill Eosinophils/100 WBC (Bld) 0.6 % Critically low 0.9-7.0 [facility] Comment on above: Performed By: #### H IV12 #### [facility] [address] [place] [address] Dr. Edwrad Gill Erythrocyte distribution width (RBC) [Ratio] 14.1 % Normal 11.0-15.0 [facility] Comment on above: Performed By: #### H IV12 #### [facility] [address] [place] [address] Dr. Edward Gill Hematocrit (Bld) [Volume fraction] 36.2 % Normal 36.0-48.0 [facility] Comment on above: Performed By: #### H IV12 #### [facility] [address] [place] [address] Dr. Edward Gill Hemoglobin (Bld) [Mass/Vol] 12.5 g/dL Normal 12.0-16.0 [facility] Comment on above: Performed By: #### H IV12 #### [facility] [address] [place] [address] Dr. Edward Gill IG # 0.05 10e3/ul Critically high 0.00-0.03 [facility] Comment on above: Performed By: #### H IV12 #### [facility] [address] [place] [address] Dr. Edward Gill IG % 0.4 % Normal 0.0-0.5 [facility] Comment on above: Performed By: #### H IV12 #### [facility] [address] [address] [address] Edward Gill LYMPH # 2.7 103/ul Normal 1.2-3.8 [facility] Comment on above: Performed By: #### H IV12 #### [facility] [address] [place] [address] Dr. Edward Gill Lymphocytes/100 WBC (Bld) 23.2 % Normal 20.5-60.0 [facility] Comment on above: Performed By: #### H IV12 #### [facility] [address] [place] [address] Dr. Edward Gill MANUAL DIFF REQ NO Normal [facility] Comment on above: Performed By: #### H IV12 #### [facility] [address] [place] [address] Dr. Edward Gill MCH (RBC) [Entitic mass] 30.6 pg Normal 26.7-34.0 [facility] Comment on above: Performed By: #### H IV12 #### [facility] [address] [place] [address] Dr. Edward Gill MCHC (RBC) [Mass/Vol] 34.5 g/dL Normal 29.9-35.2 [facility] Comment on above: Performed By: #### H IV12 #### [facility] [address] [place] [address] Dr. Edward Gill MCV (RBC) [Entitic vol] 88.7 fL Normal 81.0-99.0 [facility] Comment on above: Performed By: #### H IV12 #### [facility] [address] [place] [address] Dr. Edward Gill MONO # 0.7 103/ul Normal 0.3-0.8 [facility] Comment on above: Performed By: #### H IV12 #### [facility] [address] [place] [address] Dr. Edward Gill Monocytes/100 WBC (Bld) 5.8 % Normal 1.7-12.0 [facility] Comment on above: Performed By: #### H IV12 #### [facility] [address] [place] [address] Dr. Edward Gill NEUT # 8.0 103/ul Critically high 1.4-6.5 [facility] Comment on above: Performed By: #### H IV12 #### [facility] [address] [place] [address] Dr. Edward Gill Neutrophils/100 WBC (Bld) 69.7 % Normal 43.0-75.0 [facility] Comment on above: Performed By: #### H IV12 #### [facility] [address] [place] [address] Dr. Edward Gill Platelet mean volume (Bld) [Entitic vol] 9.3 fL Critically low 9.5-13.5 [facility] Comment on above: Performed By: #### H IV12 #### [facility] [address] [place] [address] Dr. Edward Gill PLT 338 103/ul Normal 150-450 [facility] Comment on above: Performed By: #### H IV12 #### [facility] [address] [place] [address] Dr. Edward Gill RBC 4.08 106/ul Critically low 4.20-5.40 [facility] Comment on above: Performed By: #### H IV12 #### [facility] [address] [place] [address] Dr. Edward Gill WBC 11.4 103/ul Critically high 4.0-11.0 [facility] Comment on above: Performed By: #### H IV12 #### [facility] [address] [place] [address] Dr. Edward Gill CULTURE URINEon 10-25-2021 CULTURE URINE Culture Observations : LIGHT GROWTH OF MIXED GENITAL MARTHA. NO POTENTIAL PATHOGENS SEEN. Normal [facility] Comment on above: Performed By: #### U RCX #### [facility] [address] [address] [address] Edward Gill GLYCOHEMOGLOBIN A1Con 2021 ADA RECOMMENDATION SEE BELOW Normal [facility] Comment on above: Result Comment: ADA RECOMMENDED LIMIT 4.0 - 6.0 ADA THERAPEUTIC TARGET < 7.0 ACTION SUGGESTED > 7.0 Performed By: #### A 1C #### [facility] [address] [address] [address] Edward Gill Glucose [Mass/Vol] 117 mg/dL Normal [facility] Comment on above: Performed By: #### A 1C #### [facility] [address] [place] [address] Dr. Edward Gill HbA1c (Bld) [Mass fraction] 5.7 % Normal 4.5-6.2 [facility] Comment on above: Performed By: #### A 1C #### [facility] [address] [address] [address] Edward Gill DILLON BOX TEST PT SEND OUTo n 10-25-2021 SENT TO REF LAB 10/25/2021 Normal [facility] Comment on above: Performed By: #### H IV12 #### [facility] [address] [place] [address] Dr. Edward Gill TSHon 10-25-2021 TSH 1.700 uIU/mL Normal 0.358-3.740 [facility] Comment on above: Performed By: #### T SH ####[facility] [address] [id number]. Edward Gill TYPE AND SCREENon 10-25-2021 TYPE AND SCREEN Negative Normal [facility] Comment on above: Performed By: #### T NS ####[facility] [address] [id number]. Edward Gill US PREG TVon 09-23-2021 US [...] HUMERA KIM Date: 2021-09-23 10:27 Normal [facility] PREG QUANT HCGon 09-01-2021 HCG QUANT 1242 mIU/mL Normal [facility] Comment on above: Performed By: #### H IV12 #### [facility] [address] [address] [address] Edward Gill HCG RANGE SEE BELOW Normal [facility] Comment on above: Result Comment: 5-50 0-1 WEEK 40-300 1-2 WEEKS 100-1,000 2-3 WEEKS 500-6,000 3-4 WEEKS 5,000-200,000 1-2 MONTHS 10,000-100,000 2-3 MONTHS 3,000-50,000 2ND TRIMESTER 1,000-50,000 3RD TRIMESTER Performed By: #### H IV12 #### [facility] [address] [address] [address] Edward Gill CHEMISTRYOrdered By: SYSTEM SYSTEM [...] rate/Area] mL/min/1.73 m2 Normal >=59mL/min/ 1.73 m2 [facility] Chem S GFR/1.73 sq M.predicted among non-blacks MDRD (S/P/Bld) [Vol rate/Area] mL/min/1.73 m2 Normal >=59mL/min/ 1.73 m2 [facility] Chem S Glucose [Mass/Vol] 85 mg/dL Normal 55 - 199 mg/dL [facility] Remisol Potassium [Moles/Vol] 3.9 mmol/L Normal 3.5 - 5.3 mmol/L [facility] Remisol Sodium [Moles/Vol] 135 mmol/L Normal 135 - 145 mmol/L [facility] Remisol Urea nitrogen [Mass/Vol] 6 mg/dL Normal 5 - 21 mg/dL [facility] Remisol Urea nitrogen/Creatinine [Mass ratio] 7 mg/mg Low 10 - 20 [facility] Remisol HEMATOLOGYOrdered By: SYSTEM SYSTEM on 08-31-2021 [...] 08-29-2021 HCG QUANT 374 mIU/mL Normal [facility] Comment on above: Performed By: #### P REGQNT ####[facility] [address] [place], [place] [address]DaLazara Gill HCG RANGE SEE BELOW Normal [facility] Comment on above: Result Comment: 5-50 0-1 WEEK 40-300 1-2 WEEKS 100-1,000 2-3 WEEKS 500-6,000 3-4 WEEKS 5,000-200,000 1-2 MONTHS 10,000-100,000 2-3 MONTHS 3,000-50,000 2ND TRIMESTER 1,000-50,000 3RD TRIMESTER Performed By: #### P REGQNT ####[facility] [address] [id number]. Edward Gill PREG QUANT HCGon 08-26-2021 HCG QUANT 99 mIU/mL Normal [facility] Comment on above: Performed By: #### H IV12 #### [facility] [id number] Edward Gill HCG RANGE SEE BELOW Normal [facility] Comment on above: Result Comment: 5-50 0-1 WEEK 40-300 1-2 WEEKS 100-1,000 2-3 WEEKS 500-6,000 3-4 WEEKS 5,000-200,000 1-2 MONTHS 10,000-100,000 2-3 MONTHS 3,000-50,000 2ND TRIMESTER 1,000-50,000 3RD TRIMESTER Performed By: #### H IV12 #### [facility] [address] [address] [address] Edward Gill PREG QUANT HCGon 08-24-2021 HCG QUANT 37 mIU/mL Normal [facility] Comment on above: Performed By: #### P REGQNT ####[facility] [address] [id number]. Edward Gill HCG RANGE SEE BELOW Normal [facility] Comment on above: Result Comment: 5-50 0-1 WEEK 40-300 1-2 WEEKS 100-1,000 2-3 WEEKS 500-6,000 3-4 WEEKS 5,000-200,000 1-2 MONTHS 10,000-100,000 2-3 MONTHS 3,000-50,000 2ND TRIMESTER 1,000-50,000 3RD TRIMESTER Performed By: #### P REGQNT ####[facility] [address] [id number]. 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 [...] History History of Oral Surgery Tooth Extraction [place] To[facility] Family History No pertinent family history Family history of cerebrovascular accident (CVA) (V17.1) (Z82.3) Family history of diabetes mellitus (V18.0) (Z83.3) Family history of cerebrovascular accident (CVA) (V17.1) (Z82.3) Family history of cerebrovascular accident (CVA) (V17.1) (Z82.3) Allergies No Known Drug Allergies Recorded By: Susie Salomon; 11/08/2017 4:19:42 PM Current Meds Ciprofloxacin HCl - 500 MG Oral Tablet;Therapy: [id number] to Recorded Dispense: 0 Days ; #: Sufficient Tablet; Refill: 0; BUBBA = N; Record; Last Updated By: Susie Salomon; 11/08/2017 4:19:42 PM Plavix 75 MG Oral Tablet;Therapy: [id number] to Recorded Dispense: 0 Days ; #: Sufficient Tablet; Refill: 0; BUBBA = N; Record; Last Updated By: Susie Salomon; 11/08/2017 4:19:42 PM Provera 10 MG Oral Tablet;Therapy: [id number] to Recorded Dispense: 0 Days ; #: Sufficient Tablet; Refill: 0; BUBBA = N; Record; Last Updated By: Susie Salomon; 11/08/2017 4:19:42 PM Vitals Vital Signs Recorded: [id number] 04:51SZSbgqluxd699Fkiflzhu i97Fxgybp6 ft 6 qqFdfojc189 lb BMI Ycwlbkqwiq15.57BSA Calculated1.5EHT76Udd4150K ain Scale6-7 Physical ExamConstitutional: Alert and in no acute distress. Well developed, well nourished. Head and Face: Head and face: Normal. Psychiatric: Alert and oriented x 3. Affect normal to patient baseline. Mood: Appropriate. Diagnoses/Problems Anemia (285.9) (D64.9) Asthma (493.90) (J45.909) Depression with anxiety (300.4) (F41.8) History of Oral Surgery Tooth Extraction [place] [facility] No pertinent family history : Mother [...] GIDeclines STI testing todayWeight gain, offered a property handler consult and she declined. Encouraged exercise. Signatures Electronically signed by : RICHARD Ulrich; Nov 12 2017 8:46PM EST (Author) Normal [facility] Antiphospholipid Abs IgG/IgM on 06-08-2017 Antiphospholipid Ab-IgG >200 Critically high 0-14 [facility] Comment on above: Result Comment: INTE RPRETIVE INFORMATION: High-Specificity Antiphospholipid Antibody,IgG14 GPL or less......Gxvvmozt95 26 GPL.........Indeterminate Suggest repeat testing in 12 weeks27 GPL or greater...PositiveHigh-specificity antiphospholipid IgG and IgM antibodies are directedagainsta mixture of phosphatidylserine, phosphatidic acid, and beta-2glycoprotein 1antigens. These antibodies are more specific than cardiolipin IgG andIgMantibodies in the diagnosis of antiphospholipid syndrome (APS). Antiphospholipid Ab-IgM 0 MPL Normal 0-14 [facility] Comment on above: Result Comment: INTE RPRETIVE INFORMATION: High-Specificity Antiphospholipid Antibody,IgM14 MPL or less......Jjeusvls10 37 MPL.........Indeterminate Suggest repeat testing in 12 weeks38 MPL or greater...PositiveHigh-specificity antiphospholipid IgG and IgM antibodies are directedagainsta mixture of phosphatidylserine, phosphatidic acid, and beta-2glycoprotein 1antigens. These antibodies are more specific than cardiolipin IgG andIgMantibodies in the diagnosis of antiphospholipid syndrome (APS).Performed by [facility],[address] [facility], [place] [address] wuq.[employer], Zhang Bledsoe MD - Lab. Director Histone Antibody, IgGon Histone Ab, IgG 0.5 Units Normal 0.0-0.9 [facility] Comment on above: Result Comment: INTE RPRETIVE INFORMATION: Histone Ab, IgG 0.9 Units or less ............ Negative 1.0 - 1.5 Units .............. Weak Positive 1.6 - 2.5 Units .............. Moderate Positive 2.6 Units or greater ......... Strong PositivePerformed by [facility],[address] [facility], [place] [address] pam.[employer], Zhang Bledsoe MD - Lab. Director Cardiolipin Antibodies, IgA, IgG, IgMon 06-06-2017 Cardiolipin Ab IgA 2 APL Normal 0-11 [facility] Comment on above: Result Comment: INTE RPRETIVE INFORMATION: Cardiolipin Antibodies, IgA0-11 APL: Ynszkihy44-44 APL: Qhruksdicmixh89-13 APL: Low to Moderately Tsulkgwc76 APL or above: High PositivePerformed by [facility],[address] [facility], [place] [address] wwf.[employer], Zhang Bledsoe MD - Lab. Director Cardiolipin Ab IgG 84 GPL Critically high 0-14 [facility] Comment on above: Result Comment: INTE RPRETIVE INFORMATION: Anti-Cardiolipin IgG Ab0-14 GPL: [id number] GPL: [id number] GPL: Low to Moderately Aaggzenz96 GPL or above: High PositiveThe persistent presence [...] Cardiolipin Ab IgM 5 MPL Normal 0-12 [facility] Comment on above: Result Comment: INTE RPRETIVE INFORMATION: Anti-Cardiolipin IgM0-12 MPL: Mlygyjbx96-43 MPL: Bdfzjbriwzugm64-22 MPL: Low to Moderately Xpqwovaa22 MPL or above: High PositiveThe persistent presence [...] Centromere Ab, IgG 0 AU/mL Normal 0-40 [facility] Comment on above: Result Comment: INTE RPRETIVE [...] with other antibodies associated with SSc,including Scl-70, U3-DIESEL POWERPLANT MECHANIC, PM/Scl, or Th/To.Performed by [facility],[address] [place] [address] pwo.[employer], Zhang Bledsoe MD - Lab. Director Antiphospholipid Abs IgG/IgM on 05-29-2017 Antiphospholipid Ab-IgG 196 GPL Critically high 0-14 [facility] Comment on above: Result Comment: INTE RPRETIVE INFORMATION: High-Specificity Antiphospholipid Antibody,IgG14 GPL or less......Gtggypxp02 26 GPL.........Indeterminate Suggest repeat testing in 12 weeks27 GPL or greater...PositiveHigh-specificity antiphospholipid IgG and IgM antibodies are directedagainsta mixture of phosphatidylserine, phosphatidic acid, and beta-2glycoprotein 1antigens. These antibodies are more specific than cardiolipin IgG andIgMantibodies in the diagnosis of antiphospholipid syndrome (APS). Antiphospholipid Ab-IgM 6 MPL Normal 0-14 [facility] Comment on above: Result Comment: INTE RPRETIVE INFORMATION: High-Specificity Antiphospholipid Antibody,IgM14 MPL or less......Nsfamqcd82 37 MPL.........Indeterminate Suggest repeat testing in 12 weeks38 MPL or greater...PositiveHigh-specificity antiphospholipid IgG and IgM antibodies are directedagainsta mixture of phosphatidylserine, phosphatidic acid, and beta-2glycoprotein 1antigens. These antibodies are more specific than cardiolipin IgG andIgMantibodies in the diagnosis of antiphospholipid syndrome (APS).Performed by [facility],[address] [place] [id number] pdf.[employer], Zhang Bledsoe MD - Lab. Director Pocket Miscellaneous test 1on 05-28-2017 Miscellaneous Test [address] [facility] Comment on above: Result Comment: Test [...] Additional information and recommendations for testingmay befound [email or web address].Performed by [facility],[address] [place] [address] jfe.[employer], Zhang Bledsoe MD - Lab. Director Cardiolipin Antibodies, IgA, IgG, IgMon 05-28-2017 Cardiolipin Ab IgA 0 APL Normal 0-11 [facility] Comment on above: Result Comment: INTE RPRETIVE INFORMATION: Cardiolipin Antibodies, IgA0-11 APL: Zoehvqpj35-61 APL: Ncvvpjornfbyh64-97 APL: Low to Moderately Eptywqio10 APL or above: High PositivePerformed by [facility],[address] [place] [address] xyq.[employer], Zhang Bledsoe MD - Lab. Director Cardiolipin Ab IgG 111 GPL Critically high 0-14 [facility] Comment on above: Result Comment: INTE RPRETIVE INFORMATION: Anti-Cardiolipin IgG Ab0-14 GPL: [id number] GPL: Mshmlgjdejjgy67-21 GPL: Low to Moderately Lfolregg73 GPL or above: High PositiveThe persistent presence [...] Cardiolipin Ab IgM 10 MPL Normal 0-12 [facility] Comment on above: Result Comment: INTE RPRETIVE INFORMATION: Anti-Cardiolipin IgM0-12 MPL: Goekfrbh63-94 MPL: Jyfeblvhjdxzw93-09 MPL: Low to Moderately Cpjkepxs30 MPL or above: High PositiveThe persistent presence [...] APS-specific clinical manifestations and/orothercriteria phospholipid antibody tests. Jennifer-Simposn Virus by PCRon 05-28-2017 Jennifer Simpson Virus by PCR Not Detected Normal [facility] Comment on above: Result Comment: NOT DETECTED - A negative result does not rule out thepresence of PCR inhibitors in the patient specimen or assayspecific nucleic acid in concentrations below the level ofdetection by the assay.INTERPRETIVE INFORMATION: Jennifer Simpson Virus by PCRTest developed and characteristics determined by [employer]. SeeCompliance Statement A: [employer]/CSPerformed by [employer],[address] [place] [address] uhl.[employer], Zhang Bledsoe MD - Lab. Director Jennifer Simpson Virus Source CSF Normal [facility] Oligoclonal Band Profileon 0 05-28-2017 Albumin 3840 mg/dL Normal 1235-2094 [facility] Albumin 5.2 ratio Normal 0.0-9.0 [facility] Albumin, CSF 20 mg/dL Normal 0-35 [facility] CSF IgG Synthesis Rate <0.0 Normal <=8.0 [facility] CSF Oligoclonal Bands Negative Normal Negative [facility] CSF Oligoclonal Bands Number 0 Bands Normal 0-1 [facility] Globulin 1060 mg/dL Normal 768-1632 [facility] Comment on above: Result Comment: REFE RENCE INTERVAL: Immunoglobulin GAccess complete set of age- and/or gender-specific reference intervalsforthis test in the [facility] Directory ([employer]). IgG Index 0.45 ratio Normal 0.28-0.66 [facility] Immunoglobulin G CSF 2.5 mg/dL Normal 0.0-6.0 [facility] INR Coag RelTime (Bld) 0.12 {INR} Normal 0.09-0.25 [facility] Interpretation See Note Normal [facility] Comment on above: Result Comment: Isoe lectric focusing/immunofixation reveals no oligoclonal bands ineitherthe CSF or the serum. This is considered to be a negative result foroligoclonal bands. Approximately 5 percent of patients with clinicallydefinitive multiple sclerosis will have a negative result.Performed by [facility],[address] [facility], [place] [address] fki.[employer], Zhang Bledsoe MD - Lab. Director Myelin Basic Protein, CSFon 05-27-2017 Myelin Basic Protein 1.82 ng/mL Normal 0.00-5.50 [facility] Comment on above: Result Comment: INTE RPRETIVE INFORMATION: Myelin Basic ProteinTest developed and characteristics determined by [employer]. SeeCompliance Statement D: [email or web address]/CSPerformed by [employer],[address] [facility], [place] [address] dzi.[employer], Zhang Bledsoe MD - Lab. Director Pocket Miscellaneous test 105-26-2017 Who[employer] Prompt [id number] Normal [facility] Comment on above: Result Comment: Fuentes ected result; [place] [id number] on 05/25/2017 at 13:14 by V/AUT [facility] Miscellaneous test 105-25-2017 [employer] Prompt [id number] [facility] Comment on above: Result Comment: DS D NA CSF Cell Counton 05-25-2017 CSF no diff see below Normal [facility] Comment on above: Result Comment: Diff erential not performed -Total Nucleated cells CSF Appearance Clear Normal [facility] CSF Color Colorless Normal [facility] CSF Tube Number Tube 4 Normal [facility] Fluid Clot Evaluation see below Normal [facility] Comment on above: Result Comment: No C lots Seen Total Nucleated Cells 0 K/uL Normal 0-8 [facility] Total Red Blood Cells 0 K/uL Normal [facility] CSF Glucoseon 05-25-2017 CSF Glucose 54 mg/dL Normal 50-70 [facility] CSF Proteinon 05-25-2017 CSF Protein 41 mg/dL Normal 15-45 [facility] Creatine Kinaseon 05-25-2017 Creatine kinase (CK) 71 U/L Normal 0-170 [facility] Culture, CSFon 05-25-2017 Culture, CSF OR DERED BY: VERNA MONGE: CSF (Spinal Fluid) CSF COLLECTED: 05/25/17 13:25ANTIBIOTICS AT AMARILYS.: RECEIVED : 05/25/17 13:25Gram Stain Direct FINAL 05/25/17 15:30 No WBC's, No organisms seenCulture, CSF FINAL 05/28/17 09:04 No growth at 72 hours Normal [facility] FL LUMBAR PUNCTURE DIAGon FL LUMBAR PUNCTURE [...] by:NIKITA Mezaigned by:Humera Covarrubias MD05/25/17inal result Normal [facility] Homocysteineon 05-25-2017 Homocysteine 9.1 umol/L Normal 0.0-15.0 [facility] Partial Thromboplastin Timeo n 05-25-2017 aPTT 31.7 s Normal 21.6-35.4 [facility] Comment on above: Result Comment: Hepa rin Therapeutic Range: 38.8 - 54.6 seconds. Prothrombin Timeon 8 INR Coag RelTime (PPP) 1.0 {INR} Normal [facility] Comment on above: Result Comment: Rayo mmended [...] Coag time (PPP) 10.7 s Normal 8.1-13.7 [facility] HIV-1,-2 w/Reflex to HIV-1 W estern [place] 12-31-2016 HIV-1 and HIV-2 Abs Negative Normal Negative [facility] Comment on above: Result Comment: Base d on the non-reactive anti-HIV (BRENDEN) screen, the HIV Western blotis notindicated and therefore not performed.INTERPRETIVE INFORMATION: HIV-1,-2 w/Reflex to HIV-1 Western BlotThis assay should not be used for blood donor screening, associatedre-entryprotocols, or for screening Human Cells, Tissues and Cellular andTissue-Based Products (HCT/P).Performed by [facility],[address] [place] [id number] ape.[employer], Zhang Bledsoe MD - Lab. Director RPRon 12-31-2016 Reagin antibody presence Non-reactive Normal Non-reacti [facility] C-Reactive Proteinon 017 C reactive protein (CRP) 2.8 mg/L Normal 0.0-5.0 [facility] CBC With Platelet No Differe ntialon 12-29-2016 Erythrocyte distribution width Auto Ratio (RBC) 13.2 % Normal 11.5-14.5 [facility] Erythrocytes (RBC) 4.33 10*6/uL Normal 4.20-5.40 [facility] Hematocrit (HCT) 38.6 % Normal 37.0-47.0 [facility] Hemoglobin mass conc (Bld) 12.9 g/dL Normal 12.0-16.0 [facility] MCH 29.9 pg Normal 27.0-31.3 [facility] MCHC mass conc (RBC) 33.5 % Normal 33.0-37.0 [facility] MCV 89.2 fL Normal 82.0-100.0 [facility] Platelets 363 10*3/uL Normal 130-400 [facility] WBC (Leukocytes) 7.4 10*3/uL Normal 4.8-10.8 [facility] Comprehensive Metabolic Pane shayy 12-29-2016 Alanine aminotransferase (ALT) 64 U/L Critically high 0-33 [facility] Albumin 4.9 g/dL Normal 3.9-4.9 [facility] Alkaline phosphatase (ALP) 82 U/L Normal 40-130 [facility] Anion gap 16 mmol/L Critically high 7-13 [facility] Aspartate aminotransferase (AST) 30 U/L Normal 0-35 [facility] Bilirubin (total) 0.3 mg/dL Normal 0.0-1.2 [facility] Calcium 9.3 mg/dL Normal 8.6-10.2 [facility] Chloride 90 mmol/L Low 98-107 [facility] CO2 24 mmol/L Normal 22-29 [facility] Creatinine 0.53 mg/dL Normal 0.50-0.90 [facility] eGFR (black) mL/min/{1.73_m2} Normal >60 [facility] Comment on above: Result Comment: >60 mL/min/1.73m2 EGFR, calc. for ages 18 and older using theMDRD formula (not corrected for weight), is valid for stablerenal function. eGFR (MDRD) mL/min/{1.73_m2} Normal >60 [facility] Comment on above: Result Comment: >60 mL/min/1.73m2 EGFR, calc. for ages 18 and older using theMDRD formula (not corrected for weight), is valid for stablerenal function. Globulin 2.8 g/dL Normal 2.3-3.5 [facility] Glucose mass conc 72 mg/dL Low 74-109 [facility] Potassium molar conc 4.5 mmol/L Normal 3.5-5.1 [facility] Protein 7.7 g/dL Normal 6.4-8.1 [facility] Sodium 130 mmol/L Low 132-144 [facility] Urea nitrogen 6 mg/dL Normal 6-20 [facility] Sedimentation Rateon 017 Sedimentation Rate 11 mm Normal 0-20 [facility] TSH w/out Reflexon 7 Thyroid stimulating hormone (TSH) 3.030 uIU/mL Normal 0.270-4.20 [facility] Thyroxine Freeon 12-29-2016 Thyroxine Free 1.19 ng/dL Normal 0.93-1.70 [facility] VITAMIN Don 12-29-2016 VITAMIN D 51.1 ng/mL Normal 30.0-100.0 [facility] Comment on above: Result Comment: (30- 100 ng/mL) Optimum LevelThis assay accurately quantifies the sum of vitamin D3, 25-Hydroxy andvitamin D2, 25-Hyroxy. Vitamin B12 and Folateon Cobalamins (Vitamin B12) 1860 pg/mL Critically high 211-946 [facility] Folate 19.6 ng/mL Normal 7.3-26.1 [facility] Comment on above: Result Comment: As o f 15, the methodology has changed. Results fromthis methodology should not be compared with results fromprevious methodology. Vital Signs Date Time Vital Sign Value Performing Clinician Facility 05-06-2024 14:40-0500 Body mass index (BMI) [Ratio] 35.41 kg/m2 [employer] Work Phone: [facility] 05-06-2024 14:40-0500 Body weight 99.52 kg [employer] Work Phone: [facility] 05-06-2024 14:40-0500 Diastolic blood pressure 80 mm[Hg] [employer] Work Phone: [facility] 05-06-2024 14:40-0500 Systolic blood pressure 120 mm[Hg] Wilton Herrmann DO Work Phone: [facility] 04-04-2024 10:57-0500 Body mass index (BMI) [Ratio] 35.85 kg/m2 [facility] Nurse [facility] 04-04-2024 10:57-0500 Body weight 100.75 kg [facility] Nurse [facility] 02-05-2024 13:29-0400 Blood Pressure Location Evans KAPLE [facility] 02-05-2024 13:29-0400 Body temperature 98.06 [degF] Evans KAPLE [facility] 02-05-2024 13:29-0400 Diastolic blood pressure 70 mm[Hg] Evans KAPLE [facility] 02-05-2024 13:29-0400 Heart rate 76 /min Evans KAPLE [facility] 02-05-2024 13:29-0400 Respiratory rate 16 /min Evans KAPLE [facility] 02-05-2024 13:29-0400 SaO2% (BldA) [Mass fraction] 99 % Evans KAPLE [facility] 02-05-2024 13:29-0400 Systolic blood pressure 122 mm[Hg] Evans KAPLE [facility] 02-02-2024 14:39-0400 Blood Pressure Location Anni Gudimella [facility] 02-02-2024 14:39-0400 Body temperature 98.06 [degF] Anni Gudimella [facility] 02-02-2024 14:39-0400 Diastolic blood pressure 84 mm[Hg] Anni Gudimella [facility] 02-02-2024 14:39-0400 Heart rate 98 /min Anni Gudimella [facility] 02-02-2024 14:39-0400 SaO2% (BldA) [Mass fraction] 99 % Anni Gudimella [facility] 02-02-2024 14:39-0400 Systolic blood pressure 121 mm[Hg] Anni Gudimella [facility] 01-02-2024 13:45-0400 Body height 167.7 cm Salvador Calix MD Work Phone: [facility] 01-02-2024 13:45-0400 Body mass index (BMI) [Ratio] 36.52 kg/m2 Salvador Calix MD Work Phone: [facility] 01-02-2024 13:45-0400 Body temperature 97.11 [degF] Salvador Calix MD Work Phone: [facility] 01-02-2024 13:45-0400 Body weight 102.7 kg Salvador Calix MD Work Phone: [facility] 01-02-2024 13:45-0400 Diastolic blood pressure 81 mm[Hg] Salvador Calix MD Work Phone: [facility] 01-02-2024 13:45-0400 Heart rate 91 /min Salvador Calix MD Work Phone: [facility] 01-02-2024 13:45-0400 Respiratory rate 16 /min Salvador Calix MD Work Phone: [facility] 01-02-2024 13:45-0400 SaO2% (BldA) [Mass fraction] 100 % Salvador Calix MD Work Phone: [facility] 01-02-2024 13:45-0400 Systolic blood pressure 128 mm[Hg] Salvador Calix MD Work Phone: [facility] 11-29-2023 13:40-0400 Body temperature 97.7 [degF] Chair Kossuth Work Phone: [facility] 11-29-2023 13:40-0400 Diastolic blood pressure 79 mm[Hg] Chair Kossuth Work Phone: [facility] 11-29-2023 13:40-0400 Heart rate 75 /min Chair Kossuth Work Phone: [facility] 11-29-2023 13:40-0400 Respiratory rate 16 /min Chair González Work Phone: [facility] 11-29-2023 13:40-0400 SaO2% (BldA) [Mass fraction] 99 % Chair González Work Phone: [facility] 11-29-2023 13:40-0400 Systolic blood pressure 114 mm[Hg] Chair Kossuth Work Phone: [facility] 11-22-2023 14:00-0400 Body temperature 98.2 [degF] Chair González Work Phone: [facility] 11-22-2023 14:00-0400 Diastolic blood pressure 75 mm[Hg] Chair Kossuth Work Phone: [facility] 11-22-2023 14:00-0400 Heart rate 79 /min Chair Kossuth Work Phone: [facility] 11-22-2023 14:00-0400 Respiratory rate 16 /min Chair González Work Phone: [facility] 11-22-2023 14:00-0400 SaO2% (BldA) [Mass fraction] 99 % Chair Kossuth Work Phone: [facility] 11-22-2023 14:00-0400 Systolic blood pressure 111 mm[Hg] Chair Kossuth Work Phone: [facility] 11-15-2023 14:08-0400 Diastolic blood pressure 84 mm[Hg] Chair Kossuth Work Phone: [facility] 11-15-2023 14:08-0400 Heart rate 85 /min Chair González Work Phone: [facility] 11-15-2023 14:08-0400 Respiratory rate 18 /min Chair González Work Phone: [facility] 11-15-2023 14:08-0400 SaO2% (BldA) [Mass fraction] 96 % Chair Kossuth Work Phone: [facility] 11-15-2023 14:08-0400 Systolic blood pressure 129 mm[Hg] Chair Kossuth Work Phone: [facility] 11-09-2023 14:44-0400 Blood Pressure Location Monica Saba [facility] 11-09-2023 14:44-0400 Body temperature 97.34 [degF] Monica Saba [facility] 11-09-2023 14:44-0400 Diastolic blood pressure 74 mm[Hg] Monica Saba [facility] 11-09-2023 14:44-0400 Heart rate 85 /min Monica Saba [facility] 11-09-2023 14:44-0400 Respiratory rate 16 /min Monica Saba [facility] 11-09-2023 14:44-0400 SaO2% (BldA) [Mass fraction] 99 % Monica Saba [facility] 11-09-2023 14:44-0400 Systolic blood pressure 122 mm[Hg] Monica Saba [facility] 10-23-2023 16:48-0400 Blood Pressure Location Lourdes Garber [facility] 10-23-2023 16:48-0400 Body temperature 97.52 [degF] Lourdes Garber [facility] 10-23-2023 16:48-0400 Diastolic blood pressure 60 mm[Hg] Lourdes Garber [facility] 10-23-2023 16:48-0400 Heart rate 86 /min Lourdes Garber [facility] 10-23-2023 16:48-0400 SaO2% (BldA) [Mass fraction] 99 % Lourdes Garber [facility] 10-23-2023 16:48-0400 Systolic blood pressure 122 mm[Hg] Lourdes Garber [facility] 09-28-2023 21:17-0400 Body temperature 98.06 [degF] Benny Uribe [facility] 09-28-2023 21:17-0400 Diastolic blood pressure 68 mm[Hg] Benny Rony [facility] 09-28-2023 21:17-0400 Heart rate 67 /min Benny Rony [facility] 09-28-2023 21:17-0400 Mean blood pressure 84 mm[Hg] Benny Rony [facility] 09-28-2023 21:17-0400 SaO2% (BldA) [Mass fraction] 95 % Benny Rony [facility] 09-28-2023 21:17-0400 Systolic blood pressure 117 mm[Hg] Benny Rony [facility] 09-28-2023 20:00-0400 Diastolic blood pressure 75 mm[Hg] Benny Rony [facility] 09-28-2023 20:00-0400 Heart rate 78 /min Benny Rony [facility] 09-28-2023 20:00-0400 Mean blood pressure 95 mm[Hg] Benny Rony [facility] 09-28-2023 20:00-0400 Respiratory rate 20 /min Benny Rony [facility] 09-28-2023 20:00-0400 Systolic blood pressure 134 mm[Hg] Benny Rony [facility] 09-28-2023 19:30-0400 Diastolic blood pressure 85 mm[Hg] Benny Rony [facility] 09-28-2023 19:30-0400 Heart rate 80 /min Benny Rony [facility] 09-28-2023 19:30-0400 Mean blood pressure 101 mm[Hg] Benny Rony [facility] 09-28-2023 19:30-0400 Respiratory rate 18 /min Benny Rony [facility] 09-28-2023 19:30-0400 SaO2% (BldA) [Mass fraction] 100 % Benny Rony [facility] 09-28-2023 19:30-0400 Systolic blood pressure 132 mm[Hg] Benny Rony [facility] 09-28-2023 19:00-0400 Respiratory rate 17 /min Benny Rony [facility] 09-28-2023 18:32-0400 Body temperature 98.42 [degF] Benny Rony [facility] 09-28-2023 18:32-0400 Heart rate 69 /min Benny Uribe [facility] 09-28-2023 17:46-0400 Diastolic blood pressure 90 mm[Hg] JANET DUNHAM [facility] 09-28-2023 17:46-0400 Mean blood pressure 109 mm[Hg] ABERDEEN DUNHAM [facility] 09-28-2023 17:46-0400 Systolic blood pressure 148 mm[Hg] ABERDEEN DUNHAM [facility] 09-28-2023 17:40-0400 Blood Pressure Location JANET DUNHAM [facility] 09-28-2023 17:40-0400 Body temperature 97.88 [degF] ABERDEEN DUNHAM [facility] 09-28-2023 17:40-0400 Diastolic blood pressure 70 mm[Hg] ABERDEEN DUNHAM [facility] 09-28-2023 17:40-0400 Heart rate 79 /min ABERDEEN DUNHAM [facility] 09-28-2023 17:40-0400 SaO2% (BldA) [Mass fraction] 97 % ABERDEEN DUNHAM [facility] 09-28-2023 17:40-0400 Systolic blood pressure 150 mm[Hg] ABERDEEN DUNHAM [facility] 08-03-2023 11:42-0400 Blood Pressure Location Evans CASAS [facility] 08-03-2023 11:42-0400 Body temperature 98.06 [degF] Evans CASAS [facility] 08-03-2023 11:42-0400 Diastolic blood pressure 80 mm[Hg] Evans KAPLE [facility] 08-03-2023 11:42-0400 Heart rate 72 /min Evans KAPLE [facility] 08-03-2023 11:42-0400 Respiratory rate 16 /min Evans KAPLE [facility] 08-03-2023 11:42-0400 SaO2% (BldA) [Mass fraction] 99 % Evans KAPLE [facility] 08-03-2023 11:42-0400 Systolic blood pressure 120 mm[Hg] Evans KAPLE [facility] 06-15-2023 14:05-0500 Body height 167.7 cm Salvador Calix MD Work Phone: [facility] 06-15-2023 14:05-0500 Body temperature 97.39 [degF] Salvador Calix MD Work Phone: [facility] 06-15-2023 14:05-0500 Body weight 108.1 kg Salvador Calix MD Work Phone: [facility] 06-15-2023 14:05-0500 Diastolic blood pressure 75 mm[Hg] Salvador Calix MD Work Phone: [facility] 06-15-2023 14:05-0500 Heart rate 87 /min Salvador Calix MD Work Phone: [facility] 06-15-2023 14:05-0500 Respiratory rate 16 /min Salvador Calix MD Work Phone: [facility] 06-15-2023 14:05-0500 SaO2% (BldA) [Mass fraction] 95 % Salvador Calix MD Work Phone: [facility] 06-15-2023 14:05-0500 Systolic blood pressure 147 mm[Hg] Salvador Calix MD Work Phone: [facility] 05-25-2023 11:11-0500 Blood Pressure Location Evans KAPLE [facility] 05-25-2023 11:11-0500 Body temperature 97.7 [degF] Evans KAPLE [facility] 05-25-2023 11:11-0500 Diastolic blood pressure 70 mm[Hg] Evans KAPLE [facility] 05-25-2023 11:11-0500 Heart rate 76 /min Evans KAPLE [facility] 05-25-2023 11:11-0500 Respiratory rate 18 /min Evans KAPLE [facility] 05-25-2023 11:11-0500 SaO2% (BldA) [Mass fraction] 98 % Evans KAPLE [facility] 05-25-2023 11:11-0500 Systolic blood pressure 118 mm[Hg] Evans KAPLE [facility] 02-15-2023 09:41-0400 Blood Pressure Location Evans KAPLE [facility] 02-15-2023 09:41-0400 Body temperature 98.42 [degF] Evans KAPLE [facility] 02-15-2023 09:41-0400 Diastolic blood pressure 74 mm[Hg] Evans KAPLE [facility] 02-15-2023 09:41-0400 Heart rate 80 /min Evans KAPLE [facility] 02-15-2023 09:41-0400 Respiratory rate 18 /min Evans KAPLE [facility] 02-15-2023 09:41-0400 SaO2% (BldA) [Mass fraction] 98 % Evans KAPLE [facility] 02-15-2023 09:41-0400 Systolic blood pressure 122 mm[Hg] Evans KAPLE [facility] 10-20-2022 09:44-0400 Blood Pressure Location Evans KAPLE [facility] 10-20-2022 09:44-0400 Body temperature 98.24 [degF] Evans KAPLE [facility] 10-20-2022 09:44-0400 Diastolic blood pressure 81 mm[Hg] Evans KAPLE [facility] 10-20-2022 09:44-0400 Heart rate 88 /min Evans KAPLE [facility] 10-20-2022 09:44-0400 Respiratory rate 18 /min Evans KAPLE [facility] 10-20-2022 09:44-0400 SaO2% (BldA) [Mass fraction] 98 % Evans KAPLE [facility] 10-20-2022 09:44-0400 Systolic blood pressure 130 mm[Hg] Evans KAPLE [facility] 07-27-2022 13:18-0400 Body height 167.7 cm Salvador Calix MD Work Phone: [facility] 07-27-2022 13:18-0400 Body temperature 97.5 [degF] Salvador Calix MD Work Phone: [facility] 07-27-2022 13:18-0400 Body weight 107.78 kg Salvador Calix MD Work Phone: [facility] 07-27-2022 13:18-0400 Diastolic blood pressure 79 mm[Hg] Salvador Calix MD Work Phone: [facility] 07-27-2022 13:18-0400 Heart rate 76 /min Salvador Calix MD Work Phone: [facility] 07-27-2022 13:18-0400 Respiratory rate 16 /min Salvador Calix MD Work Phone: [facility] 07-27-2022 13:18-0400 SaO2% (BldA) [Mass fraction] 97 % Salvador Calix MD Work Phone: [facility] 07-27-2022 13:18-0400 Systolic blood pressure 136 mm[Hg] Salvador Calix MD Work Phone: [facility] 04-20-2022 13:45-0500 Body temperature 98.71 [degF] Chair González Work Phone: [facility] 04-20-2022 13:45-0500 Diastolic blood pressure 66 mm[Hg] Chair Kossuth Work Phone: [facility] 04-20-2022 13:45-0500 Heart rate 85 /min Chair Kossuth Work Phone: [facility] 04-20-2022 13:45-0500 SaO2% (BldA) [Mass fraction] 97 % Chair Kossuth Work Phone: [facility] 04-20-2022 13:45-0500 Systolic blood pressure 120 mm[Hg] Chair Kossuth Work Phone: [facility] 04-05-2022 16:27-0500 Diastolic blood pressure 65 mm[Hg] Chair Kossuth Work Phone: [facility] 04-05-2022 16:27-0500 Heart rate 84 /min Chair González Work Phone: [facility] 04-05-2022 16:27-0500 Respiratory rate 18 /min Chair González Work Phone: [facility] 04-05-2022 16:27-0500 SaO2% (BldA) [Mass fraction] 96 % Chair González Work Phone: [facility] 04-05-2022 16:27-0500 Systolic blood pressure 119 mm[Hg] Chair González Work Phone: [facility] 03-27-2022 14:20-0500 Body height 167.7 cm Salvador Calix MD Work Phone: [facility] 03-27-2022 14:20-0500 Body temperature 97.39 [degF] Salvador Calix MD Work Phone: [facility] 03-27-2022 14:20-0500 Body weight 106.23 kg Salvador Calix MD Work Phone: [facility] 03-27-2022 14:20-0500 Diastolic blood pressure 59 mm[Hg] Salvador Calix MD Work Phone: [facility] 03-27-2022 14:20-0500 Heart rate 100 /min Salvador Calix MD Work Phone: [facility] 03-27-2022 14:20-0500 Respiratory rate 16 /min Salvador Calix MD Work Phone: [facility] 03-27-2022 14:20-0500 SaO2% (BldA) [Mass fraction] 97 % Salvador Calix MD Work Phone: [facility] 03-27-2022 14:20-0500 Systolic blood pressure 125 mm[Hg] Salvador Calix MD Work Phone: [facility] 01-30-2022 11:46-0400 Body height 167.7 cm Salvador Calix MD Work Phone: [facility] 01-30-2022 11:46-0400 Body temperature 97.2 [degF] Salvador Calix MD Work Phone: [facility] 01-30-2022 11:46-0400 Body weight 104.42 kg Salvador Calix MD Work Phone: [facility] 01-30-2022 11:46-0400 Diastolic blood pressure 61 mm[Hg] Salvador Calix MD Work Phone: [facility] 01-30-2022 11:46-0400 Heart rate 88 /min Salvador Calix MD Work Phone: [facility] 01-30-2022 11:46-0400 Respiratory rate 16 /min Salvador Calix MD Work Phone: [facility] 01-30-2022 11:46-0400 SaO2% (BldA) [Mass fraction] 99 % Salvador Calix MD Work Phone: [facility] 01-30-2022 11:46-0400 Systolic blood pressure 122 mm[Hg] Salvador Calix MD Work Phone: [facility] 08-19-2021 10:46-0400 Blood Pressure Location PERNELL SIDELL [facility] 08-19-2021 10:46-0400 Diastolic blood pressure 78 mm[Hg] PERNELL SIDELL [facility] 08-19-2021 10:46-0400 Heart rate 96 /min PERNELL SIDELL [facility] 08-19-2021 10:46-0400 SaO2% (BldA) [Mass fraction] 99 % PERNELL SIDELL [facility] 08-19-2021 10:46-0400 Systolic blood pressure 124 mm[Hg] PERNELL LONGORIA [facility] Encounters Encounter Date Encounter Type Care Provider Facility Start: 05-16-2024 ambulatory Evans CASAS Facility: [facility] Start: 05-06-2024 End: 05-06-2024 Bamboo flowsheet Wilton [...] 03-01-2024 End: 03-01-2024 ambulatory Wilton R MONTEZ Facility:[facility] Start: 03-01-2024 End: 03-01-2024 Patient encounter procedure Wilton R MONTEZ [facility] Start: 02-27-2024 ambulatory Wilton R MONTEZ Facility: [facility] Start: 02-27-2024 End: 02-28-2024 Telephone encounter Naga Johnson RN Hematology/Oncology Comment on above: Patient Question Start: 02-25-2024 End: 02-25-2024 ambulatory Wilton R MONTEZ Facility:[facility] Start: 02-25-2024 End: 02-25-2024 Patient encounter procedure Wilton R MONTEZ [facility] Start: 02-23-2024 End: 02-23-2024 ambulatory Evans CASAS Facility:[facility] Start: 02-23-2024 End: 02-23-2024 Patient encounter procedure Wilton R MONTEZ [facility] Start: 02-05-2024 End: 02-05-2024 ambulatory Evans CASAS Facility:[facility] Start: 02-05-2024 End: 02-05-2024 Patient encounter procedure Evans CASAS [facility] Start: 02-05-2024 End: 02-05-2024 Well adult monitoring check done Evans CASAS [facility] Start: 02-02-2024 End: 02-02-2024 ambulatory Anni Gudimella Facility:[facility] Start: 02-02-2024 End: 02-02-2024 Patient encounter procedure Anni Gudimella [facility] Start: 01-29-2024 ambulatory Evans A PRAVEEN Facility: [facility] Start: 01-24-2024 End: 01-25-2024 Refill Salvador Calix [...] Start: 01-02-2024 End: 01-02-2024 ambulatory EVANS CASAS Facility:[facility] Start: 12-17-2023 End: 12-17-2023 Telephone encounter Naga Johnson RN Hematology/Oncology Start: 12-06-2023 End: 12-06-2023 ambulatory Monica Saba Facility:[facility] Start: 12-06-2023 End: 12-06-2023 Patient encounter procedure Monica Saba [facility] Start: 12-03-2023 ambulatory Evans CASAS Facility: [facility] Start: 11-29-2023 End: 11-29-2023 ambulatory Salvador Calix [...] Available Start: 11-15-2023 Telephone encounter Financial Navigator Dlegado Work Phone: Hematology/Oncology Start: 11-15-2023 End: 11-16-2023 ambulatory Chair 12 González Work Phone: Hematology/Oncology Comment on above: Iron deficiency anem ia of (Primary Dx); Iron deficiency anemia secondary to blood loss (chronic) Start: 11-09-2023 End: 11-09-2023 Patient encounter procedure Monica Saba [facility] Start: 11-09-2023 End: 11-09-2023 Social Work Tamiko Krueger [facility] Hematology/Oncology Start: 11-05-2023 Telephone encounter [facility] Comment on above: Appointment Start: 10-29-2023 End: 10-29-2023 ambulatory EVANS CASAS Facility:[facility] Start: 10-23-2023 End: 10-23-2023 ambulatory Lourdes Garber Facility:[facility] Start: 10-23-2023 End: 10-23-2023 Patient encounter procedure Lourdes Delaney [facility] [facility] Start: 09-28-2023 End: 09-28-2023 Emergency department patient visit Benny Uribe [facility] Start: 09-28-2023 End: 09-28-2023 ambulatory NELI DUNHAM Facility:[facility] Start: 09-28-2023 End: 09-28-2023 Patient encounter procedure JANET DUNHAM [facility] Start: 09-27-2023 Telephone encounter Salvador garcia MD Work Phone: [facility] Comment on above: Appointment Reschedu led Start: 09-21-2023 End: 09-26-2023 ambulatory Salvador Calix MD Work Phone: Hematology/Oncology Comment on above: 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) Start: 09-21-2023 End: 09-26-2023 Telemedicine consultation with patient Savlador Calix MD Work Phone: Hematology/Oncology Start: 09-21-2023 End: 09-21-2023 ambulatory SALVADOR CALIX Facility:[facility] Start: 08-03-2023 End: 08-03-2023 ambulatory Evans CASAS Facility:[facility] Start: 08-03-2023 End: 08-03-2023 Patient encounter procedure Evans CASAS [facility] Start: 06-29-2023 End: 06-29-2023 ambulatory Evans Cecily PRAVEEN Facility:[employer] [facility] Start: 06-29-2023 End: 06-29-2023 Patient encounter procedure Evans Cecily PRAVEEN [facility] Start: 06-19-2023 ambulatory Naga Johnson RN Hemat ology/Oncology Comment on above: Lab results/recommen dations Start: 06-19-2023 E-mail encounter fro m caregiver Naga Johnson RN [facility] Start: 06-15-2023 End: 06-15-2023 Office outpatient visit 25 minutes Salvador Calix MD Work Phone: Hematology/Oncology Comment on above: Vitamin D deficiency (Primary Dx); Hypercalcemia; Iron deficiency anemia secondary to blood loss (chronic) Start: 06-15-2023 Telephone encounter [facility]: Results Start: 06-15-2023 End: 06-15-2023 ambulatory SALVADOR CALIX Facility:[facility] Start: 06-11-2023 Telephone encounter Salvador garcia MD [...] Start: 05-31-2023 End: 06-01-2023 ambulatory EVANS CASAS Facility:[facility] Start: 05-28-2023 End: 05-28-2023 ambulatory EVANS CASAS Facility:[facility] Start: 05-25-2023 End: 05-25-2023 ambulatory Evans CASAS Facility:[facility] Start: 05-25-2023 End: 05-25-2023 Patient encounter procedure Evans CASAS [facility] Start: 05-21-2023 ambulatory EVANS CASAS Facility: [facility] Start: 05-01-2023 End: 05-01-2023 ambulatory Evans CASAS Facility:[facility] Start: 04-27-2023 End: 04-27-2023 Lab Drop off Evans CASAS [facility] Start: 04-27-2023 End: 04-27-2023 ambulatory Evans CASAS Facility:[facility] Start: 04-25-2023 End: 04-25-2023 ambulatory Maxine Hong Facility:[facility] Start: 03-19-2023 End: 03-20-2023 ambulatory EVANS CASAS Facility:[facility] Start: 03-19-2023 End: 03-19-2023 ambulatory Salvador Calix MD Work Phone: Hematology/Oncology Comment on above: Primary hypercoagula ble state (HCC) (Primary Dx); Iron deficiency anemia secondary to blood loss (chronic); Vitamin D deficiency; CVA, old, speech/language deficit; Antiphospholipid antibody syndrome (HCC) Start: 03-19-2023 End: 03-19-2023 Telemedicine consultation with patient Salvador Calix MD Work Phone: [facility] Start: 03-13-2023 End: 03-13-2023 ambulatory EVANS Cecily PRAEVEN Facility:[facility] Start: 02-15-2023 End: 02-15-2023 ambulatory Evans Cecily PRAVEEN Facility:[facility] Start: 02-15-2023 End: 02-15-2023 Patient encounter procedure Evans CASAS [facility] Start: 02-13-2023 ambulatory Evans Tony STEPHANIBEN Facility: [facility] Start: 12-26-2022 End: 12-26-2022 ambulatory Lourdes Garber Facility:[facility] Start: 12-26-2022 End: 12-26-2022 Patient encounter procedure Lourdes Garber [facility] Start: 12-22-2022 End: 12-22-2022 ambulatory Salvador Calix MD Work Phone: Hematology/Oncology Comment on above: Primary hypercoagula ble state (HCC) (Primary Dx); Iron deficiency anemia of ; Iron deficiency anemia secondary to blood loss (chronic); Vitamin D deficiency Start: 12-22-2022 End: 12-22-2022 Telemedicine consultation with patient Salvador Calix MD Work Phone: [facility] Start: 12-11-2022 Telephone encounter Salvador garcia MD Work Phone: Cancer [facility] Comment on above: Appointment Start: 10-20-2022 End: 10-20-2022 Patient encounter procedure Evans CASAS [facility] Start: 09-28-2022 End: 09-28-2022 ambulatory Salvador Calix MD Work Phone: Hematology/Oncology Comment on above: Primary hypercoagula ble state (HCC); CVA, old, speech/language deficit; Cerebral hyponatremia Start: 09-28-2022 End: 09-28-2022 Telemedicine consultation with patient Salvador Calix MD Work Phone: [facility] Start: 09-26-2022 End: 09-26-2022 Patient encounter procedure Salvador Calix [facility] Start: 09-19-2022 Telephone encounter Valeri Yan RN Hematology/Oncology Comment on above: Orders Start: 09-05-2022 End: 09-05-2022 Patient encounter procedure Wilton R MONTEZ [facility] Start: 08-07-2022 End: 08-07-2022 Patient encounter procedure Wilton R MONTEZ [facility] Start: 07-27-2022 End: 07-27-2022 Office outpatient visit [...] encounter Salvador garcia MD Work Phone: Cancer [facility] Comment on above: Results Start: 03-24-2022 End: [...] encounter procedure Salvador Calix MD Work Phone: [facility] Start: 01-24-2022 End: 01-25-[address] WILTON HERRMANN Facility:[facility] Start: 01-24-2022 End: 01-25-[address] WILTON HERRMANN Facility:[facility] Start: 01-07-2022 End: 01-08-[address] WILTON HERRMANN Facility:[facility] Start: 12-30-2021 Refill Tonja Wallace RN Work Phone: Hematology/Oncology Comment on above: Refill Request Start: 12-28-2021 End: 12-29-[address] WILTON HERRMANN Facility:[facility] Start: 11-21-2021 End: 11-22-2021 ambulatory EVANS CASAS [facility] Start: 11-21-2021 End: 11-21-2021 Subsequent hospital visit by physician Evans Casas Work Phone: [facility] Start: 11-14-2021 End: 02-13-2022 Patient encounter procedure SELF REFERRAL [facility] Start: 11-04-[address] WILTON HERRMANN Facility [...] End: 08-31-2021 Patient encounter procedure Evans CASAS [facility] Start: 08-29-2021 End: 08-30-[address] WILTON HERRMANN Facility:[facility] Start: 08-26-2021 End: 08-27-[address] WILTON HERRMANN Facility:[facility] Start: 08-24-2021 End: 08-25-[address] WILTON HERRMANN Facility:[facility] Start: 08-22-2021 Telephone encounter Meme Easton RN Hematology/Oncology Comment on above: Patient Question Start: 08-19-2021 End: 08-19-2021 Patient encounter procedure PERNELL LONGORIA [facility] Start: 08-19-2021 End: 08-19-2021 Lab Drop off PERNELL W SIDELL [facility] Start: 08-19-2021 End: 08-19-2021 Patient encounter procedure PERNELL W SIDELL [facility] Start: 08-01-2021 Telephone encounter Salvador garcia MD Work Phone: Cancer [facility] Comment on above: Future Appointment Start: 08-01-2021 End: 08-01-2021 Nursing evaluation of patient and report Nevin Pacheco Delgado Chantel Work Phone: Hematology/Oncology Comment on above: Infective urethritis (Primary Dx) Start: 06-03-2018 Patient encounter procedure Haseeb Morel Facility:[facility] Start: 11-08-2017 Patient encounter procedure ERIKA LONDON Facility:[id number] Start: 05-25-2017 End: 05-26-2017 Ambulatory PENG R [facility] Procedures Date Procedure Procedure Detail Performing Clinician Start: 05-06-2024 Urnls dip stick/tablet rgnt non-auto w/o micrscp Wilton Montez DO Work Phone: Start: 04-12-2024 BOX TEST [employer] DO Work Phone: Start: 04-12-2024 [facility] DRUG SCREEN RAPID (URINE) [employer] Work Phone: Start: 04-04-2024 End: 04-04-2024 Urnls [...] Start: 05-25-2017 JENNIFER SIMPSON VIRUS PCR PENG MONGE Start: 05-25-2017 GLUCOSE, CSF PENG MONGE Start: [...] MONGE Start: 06-14-2013 Biopsy of breast PERNELL [employer] Start: 04-30-2006 Extraction of wisdom tooth PERNELL SIDEMICHELLE endoscopy for ovaria n cysts to drain PERNELL SIDEMICHELLE Vaccine refused by patient COVID -19 vaccine dose declined( Confirmed ) PERNELL SIDEMICHELLE Plan of Treatment Date Care Activity Detail Author Start: 07-03-2024 DTaP/Tdap/Td vaccine (2 - Td or Tdap) DTaP/Tdap/Td vaccine (2 - Td or Tdap) [facility] Start: 07-03-2024 Urine microalbumin profile [facility] Start: 05-21-2024 End: 05-21-2024 Follow-up encounter 05/21/2024 2:20 PM EST Visit (SP) Office Hematology/Oncology [address] [place] [address] [place] [address] Salvador Calix MD [address] [place] [address] [place] [address] 3 month follow up with lab Hematology/Oncology Comment on above: 3 month follow up [facility] Start: 05-21-2024 End: 05-21-2024 Patient encounter procedure 05/21/2024 2:00 PM EST Office Visit [facility] [address] [place] [address] [place] [address] 3 month follow up with lab [facility] Comment on above: 3 month follow up wi th lab Start: 05-06-2024 End: 05-06-2025 US for [facility] Work Phone: Comment on above: Expected: 05/06/2024 , Expires: 05/06/2025 Start: 05-06-2024 End: 05-06-2024 Patient encounter procedure 05/06/2024 1:50 PM EST Routine [facility] [address] [place] [address] Wilton Herrmann, [address] [place], [place] [id number] [facility] Start: 04-09-2024 End: 04-09-2024 Follow-up encounter Hematology/Oncology Comment on above: 3 month follow up wi lab Start: 04-09-2024 End: 04-09-2024 Patient encounter procedure [facility] Comment on above: 3 month [...] first trimester Expected: 04/04/2024 (Approximate), Expires: 04/04/2025 [facility] Comment on above: Expected: 04/04/2024 (Approximate), Expires: 04/04/2025 Start: 04-04-2024 End: 04-04-2025 US Pelvis transvaginal US OB transvaginal Imaging Routine Missed menses Expected: 04/04/2024 (Approximate), Expires: 04/04/2025 [facility] Comment on above: Expected: 04/04/2024 (Approximate), Expires: 04/04/2025 Start: 04-02-2024 End: 07-02-2024 25-hydroxyvitamin D3 [Mass/volume] in Serum or Plasma VITAMIN D 25 HYDROXY Lab Routine Iron deficiency anemia secondary to blood loss (chronic) Vitamin D deficiency Malaise and fatigue Expected: 04/02/2024 (Approximate), Expires: 07/02/2024 [facility] Comment on above: Expected: 04/02/2024 (Approximate), Expires: 07/02/2024 Start: 04-02-2024 End: 01-01-2025 CBC W Auto Differential panel - Blood COMPLETE BLOOD COUNT AND DIFFERENTIAL Lab Routine Iron deficiency anemia secondary to blood loss (chronic) Vitamin D deficiency Malaise and fatigue Expected: 04/02/2024 (Approximate), Expires: 01/01/2025 [facility] Comment on above: Expected: 04/02/2024 (Approximate), Expires: 01/01/2025 Start: 04-02-2024 End: 01-01-2025 Cobalamin (Vitamin B12) [Mass/volume] in Serum or Plasma VITAMIN B12 Lab Routine Iron deficiency anemia secondary to blood loss (chronic) Vitamin D deficiency Malaise and fatigue Expected: 04/02/2024 (Approximate), Expires: 01/01/2025 [facility] Comment on above: Expected: 04/02/2024 (Approximate), Expires: 01/01/2025 Start: 04-02-2024 End: 01-01-2025 Comprehensive metabolic 2000 panel - Serum or Plasma COMPREHENSIVE METABOLIC PANEL Lab Routine Iron deficiency anemia secondary to blood loss (chronic) Vitamin D deficiency Malaise and fatigue Expected: 04/02/2024 (Approximate), Expires: 01/01/2025 [facility] Comment on above: Expected: 04/02/2024 (Approximate), Expires: 01/01/2025 Start: 04-02-2024 End: 01-01-2025 Ferritin [Mass/volume] in Serum or Plasma FERRITIN Lab Routine Iron deficiency anemia secondary to blood loss (chronic) Vitamin D deficiency Malaise and fatigue Expected: 04/02/2024 (Approximate), Expires: 01/01/2025 [facility] Comment on above: Expected: 04/02/2024 (Approximate), Expires: 01/01/2025 Start: 04-02-2024 End: 01-01-2025 Folate [Mass/volume] in Serum or Plasma FOLATE, SERUM Lab Routine Iron deficiency anemia secondary to blood loss (chronic) Vitamin D deficiency Malaise and fatigue Expected: 04/02/2024 (Approximate), Expires: 01/01/2025 [facility] Comment on above: Expected: 04/02/2024 (Approximate), Expires: 01/01/2025 Start: 04-02-2024 End: 01-01-2025 Iron and Iron binding capacity panel - Serum or Plasma IRON AND TIBC Lab Routine Iron deficiency anemia secondary to blood loss (chronic) Vitamin D deficiency Malaise and fatigue Expected: 04/02/2024 (Approximate), Expires: 01/01/2025 [facility] Comment on above: Expected: 04/02/2024 (Approximate), Expires: 01/01/2025 Start: 04-02-2024 End: 07-02-2024 Thyrotropin [Units/volume] in Serum or Plasma THYROID STIMULATING HORMONE Lab Routine Iron deficiency anemia secondary to blood loss (chronic) Vitamin D deficiency Malaise and fatigue Expected: 04/02/2024 (Approximate), Expires: 07/02/2024 [facility] Work Phone: Comment on above: Expected: 04/02/2024 (Approximate), Expires: 07/02/2024 Start: 01-05-2024 End: 01-01-2025 CBC W Auto Differential panel - Blood COMPLETE BLOOD COUNT AND DIFFERENTIAL Lab Routine Iron deficiency anemia secondary to blood loss (chronic) Vitamin D deficiency Malaise and fatigue Expected: 01/05/2024 (Approximate), Expires: 01/01/2025 [facility] Comment on above: Expected: 01/05/2024 (Approximate), Expires: 01/01/2025 Start: 01-05-2024 End: 01-01-2025 Comprehensive metabolic 2000 panel - Serum or Plasma COMPREHENSIVE METABOLIC PANEL Lab Routine Iron deficiency anemia secondary to blood loss (chronic) Vitamin D deficiency Malaise and fatigue Expected: 01/05/2024 (Approximate), Expires: 01/01/2025 [facility] Comment on above: Expected: 01/05/2024 (Approximate), Expires: 01/01/2025 Start: 01-02-2024 End: 01-02-2024 Follow-up encounter 01/02/2024 1:45 PM EDT Visit (SP) Office Hematology/Oncology [address] [place] [address] Salvador Calix MD [address] [place] [address] 8 WEEK FOLLOW UP Hematology/Oncology Comment on above: 8 WEEK FOLLOW UP Start: 01-02-2024 End: 01-02-2024 Patient encounter procedure 01/02/2024 1:30 PM EDT Office Visit [facility] [address] [place] [address] [place] [address] 8 WEEK FOLLOW UP [facility] Comment on above: 8 WEEK FOLLOW UP Start: 12-30-2023 Covid-19 Vaccine ( season) Covid-19 Vaccine ( season) [facility] Start: 12-30-2023 Covid-19 Vaccine ( season) Covid-19 Vaccine ( season) [facility] Start: 12-30-2023 Influenza vaccination C [facility] Start: 11-29-2023 End: 11-29-2023 ambulatory 11/29/2023 1:30 PM EDT [facility] Hematology/Oncology [address] [address] [address] [address] Hematology/Oncology Comment on above: [facility] [address] Start: 11-22-2023 End: 11-22-2023 ambulatory 11/22/2023 1:30 PM EDT [facility]fusion [facility] Hematology/Oncology [address] [place] [address] [address] Hematology/Oncology Comment on above: [facility] [address] Start: 11-15-2023 End: 11-15-2023 ambulatory 11/15/2023 1:30 PM EDT Infusion Center Hematology/Oncology [address] [place] [address] [address] Hematology/Oncology Comment on above: [facility] [address] Start: 09-13-2023 End: 12-13-2023 25-hydroxyvitamin D3 [Mass/volume] in Serum or Plasma VITAMIN D 25 HYDROXY Lab Routine Vitamin D deficiency 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) Expected: 09/13/2023 (Approximate), Expires: 12/13/2023 [facility] Work Phone: Comment on above: Expected: 09/13/2023 (Approximate), Expires: 12/13/2023 Start: 09-13-2023 End: 12-13-2023 Calcium.ionized [Moles/volume] in Blood CALCIUM IONIZED BLOOD Lab Routine Vitamin D deficiency 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) Expected: 09/13/2023 (Approximate), Expires: 12/13/2023 [facility] Work Phone: Comment on above: Expected: 09/13/2023 (Approximate), Expires: 12/13/2023 Start: 09-13-2023 End: 06-15-2024 CBC W Auto Differential panel - Blood CBC + DIFF Lab Routine Vitamin D deficiency 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) Expected: 09/13/2023 (Approximate), Expires: 06/15/2024 [facility] Work Phone: Comment on above: Expected: 09/13/2023 (Approximate), Expires: 06/15/2024 Start: 09-13-2023 End: 06-15-2024 Cobalamin (Vitamin B12) [Mass/volume] in Serum or Plasma VITAMIN B12 BLOOD Lab Routine Vitamin D deficiency 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) Expected: 09/13/2023 (Approximate), Expires: 06/15/2024 [facility] Work Phone: Comment on above: Expected: 09/13/2023 (Approximate), Expires: 06/15/2024 Start: 09-13-2023 End: 06-15-2024 Comprehensive metabolic 2000 panel - Serum or Plasma COMP METABOLIC PANEL Lab Routine Vitamin D deficiency 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) Expected: 09/13/2023 (Approximate), Expires: 06/15/2024 [facility] Work Phone: Comment on above: Expected: 09/13/2023 (Approximate), Expires: 06/15/2024 Start: 09-13-2023 End: 06-15-2024 Ferritin [Mass/volume] in Serum or Plasma FERRITIN BLD Lab Routine Vitamin D deficiency 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) Expected: 09/13/2023 (Approximate), Expires: 06/15/2024 [facility] Work Phone: Comment on above: Expected: 09/13/2023 (Approximate), Expires: 06/15/2024 Start: 09-13-2023 End: 06-15-2024 Folate [Mass/volume] in Serum or Plasma FOLATE SERUM Lab Routine Vitamin D deficiency 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) Expected: 09/13/2023 (Approximate), Expires: 06/15/2024 [facility] Work Phone: Comment on above: Expected: 09/13/2023 (Approximate), Expires: 06/15/2024 Start: 09-13-2023 End: 06-15-2024 Iron and Iron binding capacity panel - Serum or Plasma IRON + TIBC Lab Routine Vitamin D deficiency 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) Expected: 09/13/2023 (Approximate), Expires: 06/15/2024 [facility] Work Phone: Comment on above: Expected: 09/13/2023 (Approximate), Expires: 06/15/2024 Start: 09-13-2023 End: 12-13-2023 Parathyrin.intact [Mass/volume] in Serum or Plasma PTH INTACT BLD Lab Routine Vitamin D deficiency 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) Expected: 09/13/2023 (Approximate), Expires: 12/13/2023 [facility] Work Phone: Comment on above: Expected: 09/13/2023 (Approximate), Expires: 12/13/2023 Start: 06-15-2023 End: 09-14-2023 25-hydroxyvitamin D3 [Mass/volume] in Serum or Plasma VITAMIN D 25 HYDROXY Lab Routine Vitamin D deficiency Expected: 06/15/2023 (Approximate), Expires: 09/14/2023 [facility] Work Phone: Comment on above: Expected: 06/15/2023 (Approximate), Expires: 09/14/2023 Start: 06-15-2023 End: 09-14-2023 Calcium.ionized [Moles/volume] in Blood CALCIUM IONIZED BLOOD Lab Routine Vitamin D deficiency Hypercalcemia Expected: 06/15/2023 (Approximate), Expires: 09/14/2023 [facility] Work Phone: Comment on above: Expected: 06/15/2023 (Approximate), Expires: 09/14/2023 Start: 06-15-2023 End: 06-12-2024 CBC W Auto Differential panel - Blood CBC + DIFF Lab Routine Iron deficiency anemia secondary to blood loss (chronic) Expected: 06/15/2023 (Approximate), Expires: 06/12/2024 [facility] Work Phone: Comment on above: Expected: 06/15/2023 (Approximate), Expires: 06/12/2024 Start: 06-15-2023 End: 06-12-2024 Cobalamin (Vitamin B12) [Mass/volume] in Serum or Plasma VITAMIN B12 BLOOD Lab Routine Iron deficiency anemia secondary to blood loss (chronic) Expected: 06/15/2023 (Approximate), Expires: 06/12/2024 [facility] Work Phone: Comment on above: Expected: 06/15/2023 (Approximate), Expires: 06/12/2024 Start: 06-15-2023 End: 06-12-2024 Comprehensive metabolic 2000 panel - Serum or Plasma COMP METABOLIC PANEL Lab Routine Iron deficiency anemia secondary to blood loss (chronic) Expected: 06/15/2023 (Approximate), Expires: 06/12/2024 [facility] Work Phone: Comment on above: Expected: 06/15/2023 (Approximate), Expires: 06/12/2024 Start: 06-15-2023 End: 06-12-2024 Ferritin [Mass/volume] in Serum or Plasma FERRITIN BLD Lab Routine Iron deficiency anemia secondary to blood loss (chronic) Expected: 06/15/2023 (Approximate), Expires: 06/12/2024 [facility] Work Phone: Comment on above: Expected: 06/15/2023 (Approximate), Expires: 06/12/2024 Start: 06-15-2023 End: 06-12-2024 Folate [Mass/volume] in Serum or Plasma FOLATE SERUM Lab Routine Iron deficiency anemia secondary to blood loss (chronic) Expected: 06/15/2023 (Approximate), Expires: 06/12/2024 [facility] Work Phone: Comment on above: Expected: 06/15/2023 (Approximate), Expires: 06/12/2024 Start: 06-15-2023 End: 06-12-2024 Iron and Iron binding capacity panel - Serum or Plasma IRON + TIBC Lab Routine Iron deficiency anemia secondary to blood loss (chronic) Expected: 06/15/2023 (Approximate), Expires: 06/12/2024 [facility] Work Phone: Comment on above: Expected: 06/15/2023 (Approximate), Expires: 06/12/2024 Start: 06-15-2023 End: 09-14-2023 PTH, INTACT (WITHOUT CALCIUM) PTH, INTACT (WITHOUT CALCIUM) Lab Routine Vitamin D deficiency Hypercalcemia Expected: 06/15/2023 (Approximate), Expires: 09/14/2023 [facility] Work Phone: Comment on above: Expected: 06/15/2023 (Approximate), Expires: 09/14/2023 Start: 06-15-2023 End: 09-14-2023 Thyrotropin [Units/volume] in Serum or Plasma TSH BLD Lab Routine Malaise and fatigue Expected: 06/15/2023 (Approximate), Expires: 09/14/2023 [facility] Work Phone: Comment on above: Expected: 06/15/2023 (Approximate), Expires: 09/14/2023 Start: 06-14-2023 End: 09-13-2023 25-hydroxyvitamin D3 [Mass/volume] in Serum or Plasma VITAMIN D 25 HYDROXY Lab Routine Hypercalcemia Vitamin D deficiency Expected: 06/14/2023 (Approximate), Expires: 09/13/2023 [facility] Work Phone: Comment on above: Expected: 06/14/2023 (Approximate), Expires: 09/13/2023 Start: 06-14-2023 End: 09-13-2023 Calcium.ionized [Moles/volume] in Blood CALCIUM IONIZED BLOOD Lab Routine Hypercalcemia Vitamin D deficiency Expected: 06/14/2023 (Approximate), Expires: 09/13/2023 [facility] Work Phone: Comment on above: Expected: 06/14/2023 (Approximate), Expires: 09/13/2023 Start: 06-14-2023 End: 09-13-2023 PTH, INTACT (WITHOUT CALCIUM) PTH, INTACT (WITHOUT CALCIUM) Lab Routine Hypercalcemia Vitamin D deficiency Expected: 06/14/2023 (Approximate), Expires: 09/13/2023 [facility] Work Phone: Comment on above: Expected: 06/14/2023 (Approximate), Expires: 09/13/2023 Start: 06-14-2023 End: 09-13-2023 Thyrotropin [Units/volume] in Serum or Plasma TSH BLD Lab Routine Hypercalcemia Malaise and fatigue Expected: 06/14/2023 (Approximate), Expires: 09/13/2023 [facility] Work Phone: Comment on above: Expected: 06/14/2023 (Approximate), Expires: 09/13/2023 Start: 05-14-2023 End: 03-19-2024 CBC W Auto Differential panel - Blood CBC + DIFF Lab Routine Primary hypercoagulable state (HCC) Iron deficiency anemia secondary to blood loss (chronic) Vitamin D deficiency CVA, old, 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) Expected: 05/14/2023 (Approximate), Expires: 03/19/2024 [facility] Work Phone: Comment on above: Expected: 05/14/2023 (Approximate), Expires: 03/19/2024 Start: 05-14-2023 End: 03-19-2024 Cobalamin (Vitamin B12) [Mass/volume] in Serum or Plasma VITAMIN B12 BLOOD Lab Routine Primary hypercoagulable state (HCC) Iron deficiency anemia secondary to blood loss (chronic) Vitamin D deficiency CVA, old, 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) Expected: 05/14/2023 (Approximate), Expires: 03/19/2024 [facility] Work Phone: Comment on above: Expected: 05/14/2023 (Approximate), Expires: 03/19/2024 Start: 05-14-2023 End: 03-19-2024 Comprehensive metabolic 2000 panel - Serum or Plasma COMP METABOLIC PANEL Lab Routine Primary hypercoagulable state (HCC) Iron deficiency anemia secondary to blood loss (chronic) Vitamin D deficiency CVA, old, 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) Expected: 05/14/2023 (Approximate), Expires: 03/19/2024 [facility] Work Phone: Comment on above: Expected: 05/14/2023 (Approximate), Expires: 03/19/2024 Start: 05-14-2023 End: 03-19-2024 Ferritin [Mass/volume] in Serum or Plasma FERRITIN BLD Lab Routine Primary hypercoagulable state (HCC) Iron deficiency anemia secondary to blood loss (chronic) Vitamin D deficiency CVA, old, 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) Expected: 05/14/2023 (Approximate), Expires: 03/19/2024 [facility] Work Phone: Comment on above: Expected: 05/14/2023 (Approximate), Expires: 03/19/2024 Start: 05-14-2023 End: 03-19-2024 Folate [Mass/volume] in Serum or Plasma FOLATE SERUM Lab Routine Primary hypercoagulable state (HCC) Iron deficiency anemia secondary to blood loss (chronic) Vitamin D deficiency CVA, old, 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) Expected: 05/14/2023 (Approximate), Expires: 03/19/2024 [facility] Work Phone: Comment on above: Expected: 05/14/2023 (Approximate), Expires: 03/19/2024 Start: 05-14-2023 End: 03-19-2024 Iron and Iron binding capacity panel - Serum or Plasma IRON + TIBC Lab Routine Primary hypercoagulable state (HCC) Iron deficiency anemia secondary to blood loss (chronic) Vitamin D deficiency CVA, old, 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) Expected: 05/14/2023 (Approximate), Expires: 03/19/2024 [facility] Work Phone: Comment on above: Expected: 05/14/2023 (Approximate), Expires: 03/19/2024 Start: 04-30-2023 Behavioral Health Screening Behavioral Health Screening [facility] Start: 04-30-2023 Depression Assessment Depression Ass essment [facility] Start: 02-16-2023 End: 04-18-2023 25-hydroxyvitamin D3 [Mass/volume] in Serum or Plasma VITAMIN D 25 HYDROXY Lab Routine Primary hypercoagulable state (HCC) Iron deficiency anemia secondary to blood loss (chronic) Vitamin D deficiency Expected: 02/16/2023 (Approximate), Expires: 04/18/2023 [facility] Work Phone: Comment on above: Expected: 02/16/2023 (Approximate), Expires: 04/18/2023 Start: 02-16-2023 End: 12-23-2023 CBC W Auto Differential panel - Blood CBC + DIFF Lab Routine Primary hypercoagulable state (HCC) Iron deficiency anemia secondary to blood loss (chronic) Expected: 02/16/2023 (Approximate), Expires: 12/23/2023 [facility] Work Phone: Comment on above: Expected: 02/16/2023 (Approximate), Expires: 12/23/2023 Start: 02-16-2023 End: 12-23-2023 Cobalamin (Vitamin B12) [Mass/volume] in Serum or Plasma VITAMIN B12 BLOOD Lab Routine Primary hypercoagulable state (HCC) Iron deficiency anemia secondary to blood loss (chronic) Expected: 02/16/2023 (Approximate), Expires: 12/23/2023 [facility] Work Phone: Comment on above: Expected: 02/16/2023 (Approximate), Expires: 12/23/2023 Start: 02-16-2023 End: 12-23-2023 Comprehensive metabolic 2000 panel - Serum or Plasma COMP METABOLIC PANEL Lab Routine Primary hypercoagulable state (HCC) Iron deficiency anemia secondary to blood loss (chronic) Expected: 02/16/2023 (Approximate), Expires: 12/23/2023 [facility] Work Phone: Comment on above: Expected: 02/16/2023 (Approximate), Expires: 12/23/2023 Start: 02-16-2023 End: 12-23-2023 Ferritin [Mass/volume] in Serum or Plasma FERRITIN BLD Lab Routine Primary hypercoagulable state (HCC) Iron deficiency anemia secondary to blood loss (chronic) Expected: 02/16/2023 (Approximate), Expires: 12/23/2023 [facility] Work Phone: Comment on above: Expected: 02/16/2023 (Approximate), Expires: 12/23/2023 Start: 02-16-2023 End: 12-23-2023 Folate [Mass/volume] in Serum or Plasma FOLATE SERUM Lab Routine Primary hypercoagulable state (HCC) Iron deficiency anemia secondary to blood loss (chronic) Expected: 02/16/2023 (Approximate), Expires: 12/23/2023 [facility] Work Phone: Comment on above: Expected: 02/16/2023 (Approximate), Expires: 12/23/2023 Start: 02-16-2023 End: 12-23-2023 Iron and Iron binding capacity panel - Serum or Plasma IRON + TIBC Lab Routine Primary hypercoagulable state (HCC) Iron deficiency anemia secondary to blood loss (chronic) Expected: 02/16/2023 (Approximate), Expires: 12/23/2023 [facility] Work Phone: Comment on above: Expected: 02/16/2023 (Approximate), Expires: 12/23/2023 Start: 12-29-2022 Covid-19 Vaccine () Covid-19 Vaccine () [facility] Start: 12-29-2022 Influenza vaccination [facility] Start: 12-04-2022 PAP TESTING PAP TESTING [facility] Start: 12-04-2022 Screening for malign ant neoplasm of cervix Pap Testing [facility] Start: 11-28-2022 End: 10-04-2023 CBC W Auto Differential panel - Blood CBC + DIFF Lab Routine Primary hypercoagulable state (HCC) CVA, old, speech/language deficit Cerebral hyponatremia Expected: 11/28/2022 (Approximate), Expires: 10/04/2023 [facility] Work Phone: Comment on above: Expected: 11/28/2022 (Approximate), Expires: 10/04/2023 Start: 11-28-2022 End: 10-04-2023 Cobalamin (Vitamin B12) [Mass/volume] in Serum or Plasma VITAMIN B12 BLOOD Lab Routine Primary hypercoagulable state (HCC) CVA, old, speech/language deficit Cerebral hyponatremia Expected: 11/28/2022 (Approximate), Expires: 10/04/2023 [facility] Work Phone: Comment on above: Expected: 11/28/2022 (Approximate), Expires: 10/04/2023 Start: 11-28-2022 End: 10-04-2023 Comprehensive metabolic 2000 panel - Serum or Plasma COMP METABOLIC PANEL Lab Routine Primary hypercoagulable state (HCC) CVA, old, speech/language deficit Cerebral hyponatremia Expected: 11/28/2022 (Approximate), Expires: 10/04/2023 [facility] Work Phone: Comment on above: Expected: 11/28/2022 (Approximate), Expires: 10/04/2023 Start: 11-28-2022 End: 10-04-2023 Ferritin [Mass/volume] in Serum or Plasma FERRITIN BLD Lab Routine Primary hypercoagulable state (HCC) CVA, old, speech/language deficit Cerebral hyponatremia Expected: 11/28/2022 (Approximate), Expires: 10/04/2023 [facility] Work Phone: Comment on above: Expected: 11/28/2022 (Approximate), Expires: 10/04/2023 Start: 11-28-2022 End: 10-04-2023 Folate [Mass/volume] in Serum or Plasma FOLATE SERUM Lab Routine Primary hypercoagulable state (HCC) CVA, old, speech/language deficit Cerebral hyponatremia Expected: 11/28/2022 (Approximate), Expires: 10/04/2023 [facility] Work Phone: Comment on above: Expected: 11/28/2022 (Approximate), Expires: 10/04/2023 Start: 11-28-2022 End: 10-04-2023 Iron and Iron binding capacity panel - Serum or Plasma IRON + TIBC Lab Routine Primary hypercoagulable state (HCC) CVA, old, speech/language deficit Cerebral hyponatremia Expected: 11/28/2022 (Approximate), Expires: 10/04/2023 [facility] Work Phone: Comment on above: Expected: 11/28/2022 (Approximate), Expires: 10/04/2023 Start: 09-21-2022 End: 07-28-2023 CBC W Auto Differential panel - Blood CBC + DIFF Lab Routine Primary hypercoagulable state (HCC) 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, old, speech/language deficit Expected: 09/21/2022 (Approximate), Expires: 07/28/2023 [facility] Work Phone: Comment on above: Expected: 09/21/2022 (Approximate), Expires: 07/28/2023 Start: 09-21-2022 End: 07-28-2023 Cobalamin (Vitamin B12) [Mass/volume] in Serum or Plasma VITAMIN B12 BLOOD Lab Routine Primary hypercoagulable state (HCC) 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, old, speech/language deficit Expected: 09/21/2022 (Approximate), Expires: 07/28/2023 [facility] Work Phone: Comment on above: Expected: 09/21/2022 (Approximate), Expires: 07/28/2023 Start: 09-21-2022 End: 07-28-2023 Comprehensive metabolic 2000 panel - Serum or Plasma COMP METABOLIC PANEL Lab Routine Primary hypercoagulable state (HCC) 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, old, speech/language deficit Expected: 09/21/2022 (Approximate), Expires: 07/28/2023 [facility] Work Phone: Comment on above: Expected: 09/21/2022 (Approximate), Expires: 07/28/2023 Start: 09-21-2022 End: 07-28-2023 Ferritin [Mass/volume] in Serum or Plasma FERRITIN BLD Lab Routine Primary hypercoagulable state (HCC) 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, old, speech/language deficit Expected: 09/21/2022 (Approximate), Expires: 07/28/2023 [facility] Work Phone: Comment on above: Expected: 09/21/2022 (Approximate), Expires: 07/28/2023 Start: 09-21-2022 End: 07-28-2023 Folate [Mass/volume] in Serum or Plasma FOLATE SERUM Lab Routine Primary hypercoagulable state (HCC) 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, old, speech/language deficit Expected: 09/21/2022 (Approximate), Expires: 07/28/2023 [facility] Work Phone: Comment on above: Expected: 09/21/2022 (Approximate), Expires: 07/28/2023 Start: 09-21-2022 End: 07-28-2023 Iron and Iron binding capacity panel - Serum or Plasma IRON + TIBC Lab Routine Primary hypercoagulable state (HCC) 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, old, speech/language deficit Expected: 09/21/2022 (Approximate), Expires: 07/28/2023 [facility] Work Phone: Comment on above: Expected: 09/21/2022 (Approximate), Expires: 07/28/2023 Start: 04-30-2022 DEPRESSION ASSESSMENT DEPRESSION ASS [facility] Start: 01-30-2022 End: 01-30-2023 Ferritin [Mass/volume] in Serum or Plasma FERRITIN BLD Lab Routine Anemia, unspecified type Expected: 01/30/2022, Expires: 01/30/2023 [facility] Work Phone: Comment on above: Expected: 01/30/2022 , Expires: 01/30/2023 Start: 01-30-2022 End: 01-30-2023 Iron and Iron binding capacity panel - Serum or Plasma IRON + TIBC Lab Routine Anemia, unspecified type Expected: 01/30/2022, Expires: 01/30/2023 [facility] Work Phone: Comment on above: Expected: 01/30/2022 , Expires: 01/30/2023 Start: 12-29-2021 Influenza vaccination C [facility] Start: 12-29-2021 End: 12-29-2021 Patient encounter procedure 12/29/2021 Routine Perinatology [facility] Start: 04-30-2021 DEPRESSION ASSESSMENT DEPRESSION ASS [facility] Start: 02-01-2021 Adult depression screening assessment DEPRESSION SCREENING [facility] Start: 12-04-2020 Screening for malign ant neoplasm of cervix Cervical Cancer Screening [facility] Start: 2020 Diabetes screen Diabetes screen [facility] Start: 10-22-2015 HPV TESTING HPV TESTING [facility] Start: 10-22-2015 Screening for malign ant neoplasm of cervix [facility] Start: 2006 Screening for malign ant neoplasm of cervix Pap smear [facility] Start: 2004 Hepatitis B Vaccine (1 of 3 - 19+ 3-dose series) Hepatitis B Vaccine (1 of 3 - 19+ 3-dose series) [facility] Start: 10-22-2003 Anxiety Screening Anxiety Screening [facility] Start: 10-22-2003 Depression Screening Depression Scre ening [facility] Start: 10-22-2003 HEPATITIS C SCREENING HEPATITIS C SC REENING [facility] Start: 10-22-2003 Hepatitis C screening [facility] Start: 10-22-2003 HIV SCREENING HIV SCREENING [facility] Start: 10-22-2003 HIV screening HIV Screening [facility] Start: 1997 Depression Screen Depression Screen [facility] Start: 1990 COVID-19 VACCINE (#1) COVID-19 VACCI NE (#1) [facility] Start: 1990 COVID-19 VACCINE (1) COVID-19 VACCIN E (1) [facility] Start: 1986 Varicella vaccine (1 of 2 - 2-dose childhood series) Varicella vaccine (1 of 2 - 2-dose childhood series) [facility] Start: 04-22-1986 COVID-19 Vaccine (#1) COVID-19 Vacci ne (#1) [facility] Start: 1985 HEPATITIS B (1 of 3 - 3-dose series) HEPATITIS B (1 of 3 - 3-dose series) [facility] Start: 1985 Hepatitis B Vaccine (1 of 3 - 3-dose series) Hepatitis B Vaccine (1 of 3 - 3-dose series) [facility] End: 11-21-2021 Alpha Fetoprotein, Maternal [facility] Work Phone: Comment on above: Once for [...] for 6 Occurrences starting 01/30/2022 until 01/30/2023 [facility] Work Phone: Comment on above: Every 2 months for 6 Occurrences starting 01/30/2022 until 01/30/2023 CBC W Auto Different ial panel - Blood CBC and differential Lab Routine Missed menses , unspecified gestational age Ordered: 04/04/2024 [facility] Comment on above: Ordered: 04/04/2024 End: 01-30-2023 Comprehensive metabolic 2000 panel - Serum or Plasma COMP METABOLIC PANEL Lab Routine Primary hypercoagulable state (HCC) CVA, old, 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) Every 2 months for 6 Occurrences starting 01/30/2022 until 01/30/2023 [facility] Work Phone: Comment on above: Every 2 months for 6 Occurrences starting 01/30/2022 until 01/30/2023 Hemoglobin A1c/Hemoglobin.total in Blood Hemoglobin A1c Lab Routine Missed menses , unspecified gestational age Ordered: 04/04/2024 [facility] Comment on above: Ordered: 04/04/2024 Hepatitis B virus surface Ag [Presence] in Serum or Plasma by Immunoassay Hepatitis B surface antigen Lab Routine Missed menses , unspecified gestational age Ordered: 04/04/2024 [facility] Comment on above: Ordered: 04/04/2024 Hepatitis C virus Ab [Presence] in Serum or Plasma by Immunoassay Hepatitis C antibody Lab Routine Missed menses , unspecified gestational age Ordered: 04/04/2024 [facility] Comment on above: Ordered: 04/04/2024 HIV-1/HIV-2 antigen/antibody combination immunoassay HIV-1 and HIV-2 antibodies Lab Routine Missed menses , unspecified gestational age Ordered: 04/04/2024 [facility] Comment on above: Ordered: 04/04/2024 Reagin Ab [Presence] in Serum by RPR RPR Lab Routine Missed menses , unspecified gestational age Ordered: 04/04/2024 [facility] Comment on above: Ordered: 04/04/2024 Rubella antibody, IgG Rubella an tibody, IgG Lab Routine Missed menses , unspecified gestational age Ordered: 04/04/2024 [facility] Comment on above: Ordered: 04/04/2024 Thyrotropin [Units/volume] in Serum or Plasma TSH Lab Routine Hypothyroidism (acquired) ([facility]) Ordered: 04/04/2024 [facility] Comment on above: Ordered: 04/04/2024 UA DIP, URINE (POC) UA DIP, URIN E (POC) Lab Routine Infective urethritis Ordered: 08/01/2021 [facility] Work Phone: Comment on above: Ordered: 08/01/2021 Vitamin D 1,25 dihydroxy Vitamin D 1,25 dihydroxy Lab Routine Low vitamin D level Ordered: 04/04/2024 [facility] Comment on above: Ordered: 04/04/2024 [facility] Immunizations Immunization Date Immunization Notes Care Provider Jamie alfonso 03-05-2018 influenza virus vaccine, unspecified formulation Salvador Calix MD Work Phone: [facility] 07-03-2014 tetanus toxoid, reduced diphtheria toxoid, and acellular pertussis vaccine, adsorbed Ma Sand Work Phone: [facility] NEGATED: Highlighted row has not occurred!02-15-2023 influenza virus vaccine, unspecified formulation Evans CASAS [facility] NEGATED: Highlighted row has not occurred!04-07-2020 influenza virus vaccine, unspecified formulation PERNELL LONGORIA [facility] [place] Payers Date Payer Category Payer Medicaid [id number] 2020 Medicaid [employer] [id number] 2020-Present [phone] [address] [place] [address] Medicaid [id number] 2020 Medicaid [id number] [id number] 1985 Unknown [id number] 2.16.840.1.821788.3.579.2.356 1985 Unknown [id number] 2.16.840.1.104945.3.579.2.356 1985 Unknown [id number] 2.16.840.1.398185.3.579.2.175 1985 Unknown [id number] 2.16.840.1.875668.3.579.2.593 1985 Unknown [id number] 2.16.840.1.619967.3.579.2.593 1985 Unknown [id number] 2.16.840.1.540805.3.579.2.593 1985 Unknown [id number] 2.16.840.1.776631.3.579.2.593 1985 Unknown [id number] 2.16.840.1.690039.3.579.2.593 1985 Unknown [id number] 2.16.840.1.438962.3.579.2.593 1985 Unknown [id number] 2.16.840.1.369049.3.579.2.593 1985 Unknown [id number] 2.16.840.1.809665.3.579.2.593 1985 Unknown [id number] 2.16.840.1.661470.3.579.2.593 1985 Unknown [id number] 2.16.840.1.809641.3.579.2.593 1985 Unknown [id number] 2.16.840.1.592076.3.579.2.593 1985 Unknown [id number] 2.16.840.1.684751.3.579.2.593 1985 Unknown [id number] 2.16.840.1.549263.3.579.2.593 1985 Unknown [id number] 2.16.840.1.272200.3.579.2.593 1985 Unknown [id number] 2.16.840.1.522854.3.579.2.593 1985 Unknown [id number] 2.16840.1.127602.3.579.2.593 1985 Unknown [id number] 2.16840.1.956159.3.579.2.593 1985 Unknown [id number] 2.16840.1.407345.3.579.2.593 1985 Unknown [id number] 2.16840.1.330669.3.579.2.593 1985 Unknown [id number] 2.16840.1.202462.3.579.2.593 1985 Unknown [id number] 2.16840.1.494967.3.579.2.593 1985 Unknown [id number] 2.16840.1.681792.3.579.2.593 1985 Unknown [id number] 2.16.840.1.262528.3.579.2.593 1985 Unknown [id number] 2.16.840.1.460739.3.579.2.593 1985 Unknown [id number] 2.16.840.1.695897.3.579.2.593 1985 Unknown [id number] 2.16840.1.982151.3.579.2.593 1985 Unknown [id number] 2.16.840.1.051172.3.579.2.9 1985 Unknown [id number] 2.16.840.1.552113.3.579.2 1985 Unknown [id number] 2.16.840.1.507547.3.579.2 1985 Unknown [id number] 2.16.840.1.271989.3.579.2 1985 Unknown [id number] 2.16.840.1.819213.3.579.2 1985 Unknown [id number] 2.16.840.1.400559.3.579.2 1985 Unknown [id number] 2.16.840.1.128257.3.579.2 1985 Unknown [id number] 2.16840.1.660079.3.579.2 1985 Unknown [id number] 2.16840.1.463409.3.579.2 1985 Unknown [id number] 2.16.840.1.466485.3.579.2 1985 Unknown [id number] 2.16.840.1.091918.3.579.2 1985 Unknown [id number] 2.16.840.1.356781.3.579.2 1985 Unknown [id number] 2.16.840.1.333597.3.579.2 1985 Unknown [id number] 2.16.840.1.800397.3.579.2 1985 Unknown [id number] 2.16.840.1.027575.3.579.2 1985 Unknown [id number] 2.16.840.1.274397.3.579.2. 1985 Unknown [id number] 2.16.840.1.083298.3.579.2. 1985 Unknown [id number] 2.16.840.1.847312.3.579.2 1985 Unknown [id number] 2.16.840.1.798495.3.579.2. 1985 Unknown [id number] 2.16.840.1.233217.3.579.2 1985 Unknown [id number] 2.16.840.1.940964.3.579.2 1985 Unknown [id number] 2.16.840.1.231631.3.579.2 1985 Unknown [id number] 2.16.840.1.850130.3.579.2 1985 Unknown [id number] 2.16.840.1.095088.3.579.2 1985 Unknown [id number] 2.16.840.1.438580.3.579.2 1985 Unknown [id number] 2.16.840.1.275239.3.579.2 1985 Unknown [id number] 2.16.840.1.888777.3.579.2. 1985 Unknown [id number] 2.16.840.1.911843.3.579.2 1985 Unknown [id number] 2.16.840.1.496341.3.579.2. 1985 Unknown [id number] 2.16.840.1.203138.3.579.2 1985 Unknown [id number] 2.16.840.1.610474.3.579.2.727 1959 Self-pay 1959 Unknown [id number] 1959 Unknown [id number] .2.840.199214.1.13.239.2.7.3.6 38675.315 Unknown [id number] 2.16.840.1.508647.3.579.2.593 Social History Date Type Detail Facility Start: 09-10-2017 End: 02-19-2023 Tobacco smoking status NHIS Never smoked tobacco [facility] Start: 09-10-2017 End: 02-19-2023 Tobacco use and exposure Smokeless tobacco non-user [facility] Start: 08-01-2021 End: 07-27-2022 Alcohol intake Current non-drinker of alcohol (finding) [facility] Start: 1985 Sex Assigned At Not on file C [facility] Start: 07-22-2021 End: 03-27-2022 Exposure to SARS-CoV-2 (event) Not sure [facility] Tobacco smoking status Never [facility] Start: 07-27-2022 End: 11-19-2023 Sex Assigned At Female [facility] Start: 11-21-2021 Alcohol intake Ex-drinker (finding) [employer] Phone: Start: 12-29-2016 History SDOH Alcohol Comment occasionally [facility] Phone: Start: 08-20-2021 [employer] Phone: Start: 07-27-2022 End: 11-19-2023 History of Social function [facility] Start: 04-04-2024 End: 05-06-2024 Alcoholic beverage intake Lifetime non-drinker (finding) [facility] Functional Status Date Assessment Result Facility 02-05-2024 Functional Status N/A [facility] 02-02-2024 Functional Status N/A [facility] 11-09-2023 Functional Status N/A [facility] 10-23-2023 Functional Status N/A [facility] 09-28-2023 Functional Status N/A [facility] 08-03-2023 Functional Status N/A [facility] 05-25-2023 Functional Status N/A [facility] 02-15-2023 Functional Status N/A [facility] 10-20-2022 Functional Status N/A [facility] Clinical Notes 08-01-2021 to 05-06-2024 Pamela Walter, CONSTRUCTION REPRESENTATIVE - 05/06/2024 1:50 PM Hardy Joseph, DEB [...] due to stenosis of middle cerebral artery ([facility]) 02/22/2020 Cervicalgia 02/05/2019 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 Coagulation defect, unspecified ([facility]) 02/05/2019 Cold intolerance 11/15/2023 Deficiency of [...] Less than 8 weeks gestation of 06/05/2019 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 02/05/2019 Migraine without aura and without status migrainosus, not intractable ([facility]) 09/12/2017 Morbid obesity ([facility]) 11/15/2023 Muscle fasciculation 08/19/2021 Nasal polyps [...] infections 01/16/2020 Pre-diabetes 11/15/2023 Primary hypercoagulable state ([facility]) 08/01/2022 Pruritus, unspecified 01/02/2020 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[facility]) 06/12/2023 Raised antibody titer 09/25/2017 Right lower quadrant pain 11/15/2023 Right otitis externa 11/15/2023 Salivary gland swelling 11/15/2023 Single live 01/15/2020 Snoring 11/15/2023 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) 12/30/2019 Suspected severe acute respiratory syndrome coronavirus 2 (SARS-CoV-2) infection 06/12/2023 SVT (supraventricular tachycardia) ([facility]) 08/26/2019 Syncope and collapse 06/03/2018 Other bacterial infections of unspecified site 06/27/2019 Thrombocytopenia, unspecified ([facility]) 11/20/2019 Hypoglycemia 06/12/2023 Unspecified condition associated [...] Antiphospholipid syndrome (CMS/HCC) Gestational diabetes Heartburn Hypothyroid ([facility] Stroke ([facility]) HISTORY PAST MEDICAL HISTORY SOCIAL HISTORY Past Medical History: Diagnosis Date AMA (advanced maternal age) multigravida 35+ Anemia Antiphospholipid syndrome (CMS/HCC) Gestational diabetes Heartburn Hypothyroid ([facility]) St[facility] ([facility]) Social History Tobacco Use Smoking status: Never [...] drainage of cyst WISDOM TOOTH EXTRACTION 2007 [place] teeth REVIEW OF SYSTEMS Review of Systems: [...] nursing note reviewed. Exam conducted with a experimental plastics fabricator present. 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 02/05/2019 Migraine without aura and without status migrainosus, not intractable ([facility]) 09/12/2017 Morbid obesity ([facility]) 11/15/2023 Muscle fasciculation 08/19/2021 Nasal polyps [...] infections 01/16/2020 Pre-diabetes 11/15/2023 Primary hypercoagulable state ([facility]) 08/01/2022 Pruritus, unspecified 01/02/2020 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[facility]) 06/12/2023 Raised antibody titer 09/25/2017 Right lower quadrant pain 11/15/2023 Right otitis externa 11/15/2023 Salivary gland swelling 11/15/2023 Single live 01/15/2020 Snoring 11/15/2023 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) 12/30/2019 Suspected severe acute respiratory syndrome coronavirus 2 (SARS-CoV-2) infection 06/12/2023 SVT (supraventricular tachycardia) ([facility]) 08/26/2019 Syncope and collapse 06/03/2018 Other bacterial infections of unspecified site 06/27/2019 Thrombocytopenia, unspecified ([facility]) 11/20/2019 Hypoglycemia 06/12/2023 Unspecified condition associated with female genital organs and menstrual cycle 05/09/2019 Unspecified ovarian cyst, right side 02/06/2019 Urinary tract infection 10/16/2019 Referred otalgia of right ear 11/19/2023 LPRD (laryngopharyngeal reflux disease) 11/19/2023 Resolved Ambulatory Problems Diagnosis Date Noted No Resolved Ambulatory Problems Past Medical History: Diagnosis Date AMA (advanced maternal age) multigravida 35+ Anemia Antiphospholipid syndrome ([facility]) Gestational diabetes Heartburn Hypothyroid ([facility]) Stroke ([facility]) Family History Problem Relation Name Age [...] drainage of cyst WISDOM TOOTH EXTRACTION 2007 [place] teeth Allergies Allergen Reactions Ciprofloxacin GI intolerance [...] or undercooked meat, and stay away from [facility]. Patient has also been advised to [...] Ariane Joseph LPN documented in this encounter [facility] 02-28-2024 Telephone encounter Note Pt aware and agreeable to plan of care. Pt denies any further questions, needs or concerns at this time. Appt verified for lab/follow up Naga Johnson RN [facility] 02-28-2024 Miscellaneous Notes Pt aware [...] Naga Johnson RN documented in this encounter [facility] 02-27-2024 Telephone encounter Note She can take the iron with prenatals. We should Johnathon labs as scheduled. [facility] 02-27-2024 Telephone encounter Note Pt 4 weeks and inquiring if she should have Johnathon's lab work completed now or wait until scheduled appt. Pt last labs completed 01/02/24. Pt also would like to know if it is okay to take with iron? Fely: Please advise Naga Johnson RN [facility] 02-05-2024 Hospital Discharg e instructions [...] condition. 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 Avoid contact with people who have cold [...] it is easier to cough up. Take vsuk-rnp-ykdpwcr and prescription medicines only as told by [...] provider. Document Revised: 07/27/2022 Document Reviewed: 08/17/2021 [employer] Patient Education 2023 SmartStart. Follow Up Care 02/04/2024 08:47:42 With:PRAVEEN RESENDEZ FAAFP, CHRIS Perez, PED Address: [address] [place] [id number] When:Within 3 Month(s) [facility] 02-05-2024 Note Patient Education Pulmonary [...] Follow these instructions at home: ? Take blpx-tjy-ggczqkf and prescription medicines only as told by [...] and water are not available, use hand machine operations supervisor. ? Avoid contact with people who have [...] is easier to cough up. ? Take hpqd-hng-aytldpi and (more content not included)... [facility] 02-02-2024 Hospital Discharg e instructions Follow Up Care 02/02/2024 11:19:56 With:Anni Bernstein MD, [facility], [facility] Address: [address] [place] [phone] When: only if needed [facility] 01-07-2024 Miscellaneous Notes No need for IV iron per CC'd chart from Dr. Calix. Attempt to call pt to notify. Left detailed message on, along with call back number on voicemail. Valeri Yan RN Dr Luna is requesting Triage to call Madhu with her FE results. Thank you documented in this encounter [facility] 01-07-2024 Telephone encounter Note No need for IV iron per CC'd chart from Dr. Calix. Attempt to call pt to notify. Left detailed message on, along with call back number on voicemail. Valeri Yan RN [facility] 01-02-[address] Luna is requesting Triage to call Madhu with her FE results. Thank you [facility] 01-02-2024 Instructions Nathaly Florence - 01/02/2024 2:08 PM EDT Triage to call iron results Continue Lovenox - patient prefers 40 mg (rather than rec 80mg) Encouraged her to reconsider Take B12 supplement in the form of a sublingual tablet RTC in 3 months Labs same day Vitamin D, TSH, Calcium with CMP documented in this encounter [facility] 01-02-2024 Nurse Note Patient states [...] MRI but was negative. Serina Dawson MA [facility] 01-02-2024 Nurse Note Patient states [...] Serina Dawson MA documented in this encounter [facility] 01-02-2024 History of Presen t illness Narrative Images from the original note were not included. NAME: Madhu Rendon CLINIC NO.: [id number] DATE OF SERVICE: January 02, 2024 ([facility]) Some elements in this clinic [...] later in 2018. These were found in [place], [place]. I don't have access to these [...] a target-like rash shortly before presenting to [facility] in 2015 with headaches and was diagnosed [...] soon. When she had a stroke in [place], she had symptoms up to a month [...] and stayed on Lovenox Hgb 13.1 @ [facility] Recommended ER if persisting bleeding but she [...] and at age 69. Both lived in [facility] but she was adopted. She was not able to see ID in October and will be seeing Dr. Baugh next week. Also will have her see Dr. Hamlin for her clotting disorder and make any other recommendations to optimize her treatment. Updated Visit, October 08, 2020: Telephone only Received call from pt stating she was seen in [facility] ER for numbness in her chest, throat, and extremities, and sob which has been worsening over the last week. We arranged a telephone visit for her to review questions with me. Madhu Rendon is a 34 year old female seen for Hypercoagulable state and recent concerns and symptoms that required her to be seen at [facility] ER. She went to the ER with Gradual worsening of breathing after progressive tingling of fingers and legs. She currently remains very fatigued even though she is sleeping well. Now recalls that before her stroke she remembers having a bull's eye rash and was seen with severe headaches in [facility] was found to have a stroke in [...] a root canal and was sent to [facility] for MRI which was negative but non-contrasted. [...] history goes back to January 2016 in [facility] where she had persisting headaches and slurred speech followed by lower extremity weakness. This took a few months to resolve and she is back to her normal state of being but some point in time during her her next she was seen by Dr. Humera Hyde in [place] as well and was found to have [...] which included preparing to see the patient, keys-vy-yrhd patient care, completing clinical documentation, performing a medically appropriate examination, counseling and educating the patient/family/caregiver, ordering medications, tests, or procedures, independently interpreting results (not separately reported), communicating results to the patient/family/caregiver, and care coordination (not separately reported). Salvador Calix MD, CPE [facility] Provided at: [place], [place] Scribe Attestation: This note was scribed [...] under my direction. CC: MD Wilton Day, [address] [place] [address] Humaira Gaviria MD [address] [place] [id number] MD Cosmo Kingston MD Michael Blank, MD documented in this encounter [facility] 01-02-2024 Note HNO ID: [id number] Author: SALVADOR CALIX MD Service: ? Author Type: Physician Type: Progress Notes Filed: 01/04/2024 12:54 Note Text: NAME: Madhu Rendon CLINIC NO.: [id number] DATE OF SERVICE: January 02, 2024 ([facility]) Some elements in this clinic note that are critical to medical decision making have been carefully reviewed and included from a prior clinic note dated: June 15, 2023 ([facility]) Additional Clinicians involved in Madhu Rendon's care: Drs. Herrmann, Jorge Monge, Humaira Gaviira, Dr. Boothe CC: hypercoag state. ASSESSMENT: 38 year old woman presents with a prior history of CVA in 2016 and an antiphospholipid antibody that was identified much later in 2018. These were found in [place], [place]. I don't have access to these [...] a target-like rash shortly before presenting to [facility] in 2015 with headaches and was diagnosed [...] soon. When she had a stroke in [place], she had symptoms up to a month [...] and stayed on Lovenox Hgb 13.1 @ [facility] Recommended ER if persisting bleeding but she would prefer to stay on Lovenox for now. Updated Visit, July 27, 2022: Madhu returns today an (more content not included)... [facility] 12-17-2023 Telephone encounter Note Pt updated and will follow up with PCP. Denies further questions, needs or concerns at this time for our provider. Naga Johnson RN [facility] 12-17-2023 Miscellaneous Notes Pt updated [...] IV Iron 11/29/23? documented in this encounter [facility] 12-17-2023 Telephone encounter Note No - sounds like she has some infectious process going on - would rec PCP. [facility] 12-17-2023 Telephone encounter Note Pt [...] possible delayed reaction to IV Iron 11/29/23? [facility] 11-29-2023 Note HNO ID: [id number] Author: BECKI GUTIERREZ RN Service: ? Author Type: Registered Nurse Type: Progress Notes Filed: 11/29/2023 16:28 Note Text: Y Y [facility] 11-29-2023 History of Presen t illness Narrative Y Y documented in this encounter [facility] 11-29-2023 Telephone encounter Note MARSHA Connell, treatment aware of changes. [facility] 11-29-2023 Miscellaneous Notes MARSHA Connell, [...] different iron formulation. documented in this encounter [facility] 11-29-2023 Telephone encounter Note Spoke with pt. She will obtain Pepcid OTC from our retail pharmacy on arrival to take (1) 20 mg tablet. She is aware and agreeable to IV steroid for infusion as well. Naga oJhnson RN [facility] 11-29-2023 Telephone encounter Note A one time dose of dexamethasone is safe when . I added 8mg to the plan for your review. Please adjust dose if necessary. Thanks, Raissa Aly RPh [facility] Work Phone: 11-29-2023 Telephone encounter Note Famotidine is safe when . Do we want to administer the venofer slower? What rate? Thanks, Raissa Aly RP [facility] 11-29-2023 Telephone encounter Note Called and discussed with pt. She is and cannot take Benadryl. She is reluctant to take Pepcid. Attempted to call retail, infusion pharmacy and [facility], no answer, to ask safety of pepcid in . Pharm/Fely: please advise Naga Johnson RN [facility] 11-29-2023 Telephone encounter Note Hi [...] have to choose a different iron formulation. [facility] 11-15-2023 Note HNO ID: [id number] Author: JUNE LOMBARDO RN Service: ? Author Type: Registered Nurse Type: Progress Notes Filed: 11/15/2023 16:30 Note Text: Pt reports having nausea and lightheadedness this morning. She has seen her pcp regarding these symptoms and is being worked up to figure out the cause. [facility] 11-15-2023 History of Presen t illness Narrative Pt reports having nausea and lightheadedness this morning. She has seen her pcp regarding these symptoms and is being worked up to figure out the cause. documented in this encounter [facility] 11-15-2023 Telephone encounter Note 1st report of treatment-Non oncology regimen (Venofer) Patient holds Medicaid coverage and there is no available FA at this time. [facility] 11-15-2023 Miscellaneous Notes 1st report of treatment-Non oncology regimen (Venofer) Patient holds Medicaid coverage and there is no available FA at this time. documented in this encounter [facility] 11-09-2023 Hospital Discharg e instructions [...] your hypoglycemia. Where to find more information [place] Diabetes Association: www.diabetes.org National [place] of Diabetes and Digestive and Kidney Diseases: [...] provider. Document Revised: 03/17/2021 Document Reviewed: 03/17/2021 [employer] Patient Education 2022 SmartStart. 11/09/2023 15:56:06 Prediabetes Prediabetes Prediabetes is when [...] hard liquor (44 mL). General instructions Take qknz-ipd-tudfunf and prescription medicines only as told by [...] is important. Where to find more information [place] Diabetes Association: www.diabetes.org Academy of Nutrition and Dietetics: www.eatright.org [place] Heart Association: www.heart.org Contact a health care [...] provider. Document Revised: 07/15/2020 Document Reviewed: 07/15/2020 [employer] Patient Education 2022 SmartStart. 11/09/2023 15:56:02 Palpitations Palpitations Palpitations are feelings [...] your health care provider. General instructions Take waeh-iwo-mxkkdpu and prescription medicines only as told by [...] provider. Document Revised: 09/07/2021 Document Reviewed: 09/07/2021 [employer] Patient Education 2022 [employer]Start. 11/09/2023 15:55:58 Fatigue Fatigue If you have [...] Follow these instructions at home: Medicines Take yhcj-jfl-bcmbyur and prescription medicines only as told by [...] the National Suicide Prevention Lifeline at or 807. This is open 24 hours a day. Text the Crisis Text Line at 754468. Summary If you have fatigue, you feel [...] Document Reviewed: 02/06/2022 Elsevier Patient Education 2022 [employer]. Follow Up Care 11/08/2023 11:31:43 With:PRAVEEN RESENDEZ FAAFP, CHRIS Perez, PED Address: [address], [place] [address]- When: Unknown [facility] 11-09-2023 Note Patient Education Emergency [...] health care provider. General instructions ? Take xrws-quw-clvzapa and prescription medicines only as told by [...] provider. Document Revised: 09/07/2021 Document Reviewed: 09/07/2021 Else[employer] Patient Education ? 2022 [employer]. Endocrinology Preventing Hypoglycemia Hypoglycemia occurs when [...] hypoglycemia may not (more content not included)... [facility] 11-09-2023 Note HNO ID: [id number] Author: TAMIKO KRUEGER LSW Service: ? Author Type: Supervisor [employer]iver[employer] Type: Progress Notes Filed: 12/03/2023 16:01 Note Text: Patient appears on the [facility] First Time Treatment List for a non-oncology treatment. No psychosocial assessment is indicated. KRISTOPHER Huerta Goals of Care Advance Directives are not on file. SIGNATURE: MACRINA Huerta PATIENT NAME: Madhu Rendon DATE: December 03, 2023 TIME: 4:00 PM PAGER/CONTACT #: [facility] 11-09-2023 History of Presen t illness Narrative Patient appears on the [facility] Time Treatment List for a non-oncology treatment. No psychosocial assessment is indicated. KRISTOPHER Huerta documented in this encounter [facility] 11-06-2023 Telephone encounter Note Pt informed of [employer]'s message and denies any questions, needs or concerns at this time. She will call PCP for additional workup of palpitations, should the IV iron not help, or they worsen. Discussed reasons for immediate evaluation; chest pain, shortness of breath, lightheadedness, dizziness, etc. Appointments verified. Naga Johnson RN [facility] 11-06-2023 Miscellaneous Notes Pt informed [...] MD Sent: 11/05/2023 11:33 AM EDT To: [facility] Triage Pool; [facility] Clerical Pool Perry Isidro - looks like you need Iron again. Dr. Middleton Cancel her virtual set for 11/05 and 11/19 - infuse 3 doses weekly iron and then see her in 8 weeks in person - labs same day. Thanks! documented in this encounter [facility] 11-05-2023 Telephone encounter Note Thanks [...] get you feeling better. Best, Dr. Middleton [facility] 11-05-2023 Telephone encounter Note Patient [...] is on a blood thinner. Harjit Haskins [facility] 11-05-2023 Telephone encounter Note Appointment tomorrow cancelled. Andres tried calling her this morning and was unable to get a hold of her. Will keep trying patient to schedule for Iron. Harjit Haskins [facility] 11-05-2023 Telephone encounter Note ----- Message from Naga Johnson RN sent at 11/05/2023 11:53 AM EDT ----- ----- Message ----- From: Salvador Calix MD Sent: 11/05/2023 11:33 AM EDT To: [facility] Triage Pool; [facility] Clerical Pool Perry Isidro - looks like you need Iron again. Dr. Middleton Cancel her virtual set for 11/05 and 11/19 - infuse 3 doses weekly iron and then see her in 8 weeks in person - labs same day. Thanks! [facility] 10-23-2023 Hospital Discharg e instructions [...] specializes in ear, nose, and throat disorders (slubber tender, or ENT) for more tests and treatment. [...] (rhinoplasty). Follow these instructions at home: Take zdug-udb-nbmxdej and prescription medicines only as told by [...] specializes in ear, nose, and throat disorders (slubber tender, or ENT) for more tests and treatment. This information is not intended to replace advice given to you by your health care provider. Make sure you discuss any questions you have with your health care provider. Document Revised: 12/12/2021 Document Reviewed: 12/12/2021 [employer] Patient Education 2022 SmartStart. 10/23/2023 17:12:52 Nasal Polyps Nasal Polyps Nasal [...] instructions at home: Medicines Take or use fvdk-xbo-mwalwwk and prescription medicines only as told by [...] provider. Document Revised: 04/05/2022 Document Reviewed: 04/05/2022 [employer] Patient Education 2022 SmartStart. 10/23/2023 17:12:52 Nasal Polypectomy Nasal Polypectomy Nasal [...] including vitamins, herbs, eye drops, creams, and avft-nmt-dbtnpzr medicines. Any problems you or family members [...] provider tells you to take them. Taking ubgy-clh-oumjbsv medicines, vitamins, herbs, and supplements. General instructions [...] provider. Document Revised: 04/05/2022 Document Reviewed: 04/05/2022 [employer] Patient Education 2022 [employer] Inc. 10/23/2023 17:12:46 BMI for Adults BMI [...] numbers. This can be done either in [place] or metric measurements. Note that charts and online BMI calculators are available to help you find your BMI quickly and easily without having to do these calculations yourself. To calculate your BMI in [place] measurements: 1.Measure your weight in pounds [...] Centers for Disease Control and Prevention: www.cdc.gov [place] Heart Association: www.heart.org National Heart, Lung, and Blood [place]: www.nhlbi.nih.gov Summary Body mass index (BMI) is a number that is calculated from a person's weight and height. BMI may help estimate how much of a person's weight is composed of fat. BMI can help identify those who may be at higher risk for certain medical problems. BMI can be measured using [place] measurements or metric measurements. BMI charts are used to identify whether you are underweight, normal weight, overweight, or obese. This information is not intended to replace advice given to you by your health care provider. Make sure you discuss any questions you have with your health care provider. Document Revised: 01/07/2020 Document Reviewed: 11/14/2019 [employer] Patient Education 2022 SmartStart. Follow Up Care 10/23/2023 08:49:41 With:Lourdes Urrutia Address: [address] [place] [address] [place] [address]- When: only if needed [facility] 09-28-2023 Hospital Discharg e instructions [...] Follow these instructions at home: Medicines Take wdch-hbc-vjqnrwk and prescription medicines only as told by [...] Watch your condition for any changes. Take ebrn-bnx-fvnkkss and prescription medicines only as told by [...] provider. Document Revised: 06/04/2020 Document Reviewed: 08/25/2019 [employer] Patient Education 2022 SmartStart. Follow Up Care 09/28/2023 18:22:59 With:Evans CASAS Address: [facility] [address], [place] [place] [address] Business (1) When:Within 3 Day(s) [facility] 09-28-2023 Hospital Discharg e instructions Patient Education [...] numbers. This can be done either in [place] ([place] or metric measurements. Note that charts and online BMI calculators are available to help you find your BMI quickly and easily without having to do these calculations yourself. To calculate your BMI in [place] measurements: 1.Measure your weight in pounds [...] Centers for Disease Control and Prevention: www.cdc.gov [place] Heart Association: www.heart.org National Heart, Lung, and Blood [place]: www.nhlbi.nih.gov Summary Body mass index (BMI) is a number that is calculated from a person's weight and height. BMI may help estimate how much of a person's weight is composed of fat. BMI can help identify those who may be at higher risk for certain medical problems. BMI can be measured using [place] measurements or metric measurements. BMI charts are used to identify whether you are underweight, normal weight, overweight, or obese. This information is not intended to replace advice given to you by your health care provider. Make sure you discuss any questions you have with your health care provider. Document Revised: 01/07/2020 Document Reviewed: 11/14/2019 E[employer] Patient Education 2022 SmartStart. 09/28/2023 18:24:42 Hypertension, Adult, Yavt-xm-Svib Hypertension, Adult Hypertension is another name for [...] doctor. Keep all follow-up visits. Medicines Take dace-fjv-goipqes and prescription medicines only as told by [...] provider. Document Revised: 02/02/2022 Document Reviewed: 02/02/2022 [employer] Patient Education 2022 [employer]Start. 09/28/2023 18:24:32 Abdominal Pain, Adult, Pupm-ir-Ljwf Abdominal Pain, Adult Many things can cause belly (abdominal) pain. Most times, belly pain is not dangerous. Many cases of belly pain can be watched and treated at home. Sometimes, though, belly pain is serious. Your doctor will try to find the cause of your belly pain. Follow these instructions at home: Medicines Take bqtg-ppy-dweplzp and prescription medicines only as told by [...] your belly pain for any changes. Take xslj-tgn-ngfurvi and prescription medicines only as told by [...] provider. Document Revised: 08/25/2019 Document Reviewed: 08/25/2019 [employer] Patient Education 2022 [employer]Start. Follow Up Care 09/28/2023 16:11:11 With:Emergency room Address: When: only if needed Comments:Patient was instructed to contact emergency room for any worsening abdominal pain, concerns, or complications. [facility] 09-28-2023 Evaluation + Plan note [...] 12:40:00 PM Scheduled Provider:Evans CASAS DO, FAAFP Location:[facility] Appointment Type: Open Future Scheduled Tests Laboratory* HgbA1c 08/03/23 [facility]05-30-2024 Telephone encounter Note* Telephone Encounter - Harjit Haskins - 09/27/2023 4:38 PM EDT Attempt has been made x2 to reschedule patient. She did not have labs drawn. Harjit Haskins [facility]05-30-2024 Miscellaneous Notes* Telephone Encounter - Harjit Haskins - 09/27/2023 4:38 PM EDT Attempt has been made x2 to reschedule patient. She did not have labs drawn. Harjit Haskins documented in this encounterCommunity [facility] Center05-29-2024 NoteHNO ID: [id number] Author: SALVADOR CALIX MD Service: ? Author Type: Physician Type: Progress Notes Filed: 09/26/2023 09:13 Note Text: Did not have labs done to prep for this visit - reschedule. Salvador Calix [facility]05-29-2024 History of Present illness Narrative* Salvador Calix MD - 09/26/2023 9:11 AM EDT Did not have labs done to prep for this visit - reschedule. Salvador Calix MD documented in this encounterCommunity Regional Medical Center04-05-2024 Hospital Discharge instructions Patient Education [...] your health care provider or diet and vision specialist (dietitian). This may include: ?Eating fewer calories. [...] provider. Document Revised: 06/12/2021 Document Reviewed: 06/12/2021 [employer] Patient Education 2022 SmartStart. Follow Up Care 02/15/2023 10:07:52 With:PRAVEEN RESENDEZ FAAFP, CHRIS Perez, PED Address: [address] [place], [place] [address], [facility] [place] [address]- When:Within 4 Month(s) [facility] 04-05-2024 Evaluation + Plan note Future Scheduled Tests Laboratory* HgbA1c 08/03/23 Radiology* CT Soft Tissue Neck w/ Contrast 11/12/23 [facility] 02-22-2024 Hospital Discharge instructions Patient [...] or if there is an kennedy for [employer]. Most glucose meters store a record of [...] mayhave. Where to find more information The [place] Diabetes Association: www.diabetes.org The Association of Diabetes [...] provider. Document Revised: 01/12/2021 Document Reviewed: 01/12/2021 [employer] Patient Education 2022 [employer] [facility] 06/21/2023 06:07:34 Preventing Iron Deficiency Anemia, Adult [...] iron. Foods high in vitamin C include: ?Delco fruits, such as tai, oranges, and grapefruits. [...] iron supplement is right for you. Take dmxs-xej-vrnjalf and prescription medicines only as told by your health care provider. Keep all follow-up visits. Where to find more information Learn more about preventing iron deficiency from: National Heart, Lung, and Blood [place]: www.nhlbi.nih.gov [place] Society of Hematology: www.hematology.org Contact a health [...] provider. Document Revised: 05/24/2022 Document Reviewed: 05/24/2022 [employer] Patient Education 2022 SmartStart. 06/21/2023 06:07:28 BMI for Adults BMI for [...] numbers. This can be done either in [place] ([place] or metric measurements. Note that charts and online BMI calculators are available to help you find your BMI quickly and easily without having to do these calculations yourself. To calculate your BMI in [place] measurements: 1.Measure your weight in pounds [...] Centers for Disease Control and Prevention: www.cdc.gov [place] Heart Association: www.heart.org National Heart, Lung, and Blood [place]: www.nhlbi.nih.gov Summary Body mass index (BMI) is a number that is calculated from a person's weight and height. BMI may help estimate how much of a person's weight is composed of fat. BMI can help identify thosewho may be at higher risk for certain medical problems. BMI can be measured using [place] measurements or metric measurements. BMI charts are used to identify whether you are underweight, normal weight, overweight, or obese. This information is not intended to replace advice given to you by your health care provider. Make sure you discuss any questions you have with your health care provider. Document Revised: 01/07/2020 Document Reviewed: 11/14/2019 [employer] Patient Education 2022 SmartStart. Follow Up Care 06/19/2023 13:39:56 With:PRAVEEN RESENDEZ FAAFP, CHRIS Perez, PED Address: [address] [place] [address] [place] [address]- When: Unknown [facility] 02-20-2024 Miscellaneous Notes* Telephone Encounter - Naga Johnson RN - 06/19/2023 1:05 PM EST Pt called back and aware of Fely's message. She is agreeable to POC and denies further needs at thistime. She will call PCP to follow up on TSH Naga Johnson RN * Telephone Encounter - Naga Johnson RN - 06/19/2023 12:26 PM EST Voicebase message sent Naga Johnson RN * Telephone [...] lab results Harjit Haskins documented in this encounterCommunity [facility] Center02-16-2024 Instructions* Patient Instructions* Nathaly Carney [...] TSH, Calcium with CMP documented in this encounterCommunity Regional Medical Center02-16-2024 Nurse Note* Serina Horton MA - 06/15/2023 2:10 PM EST Patient has had intermittent joint and muscle pain. She also has times of fatigue, chills, no feverwith low temp and low heart rate and feeling ill prior to getting the joint pain/muscle pain. Patient also states her rate can go from the low 60's to 180's with exercise. Seirna Dawson MA documented in this encounterCommunity Regional Medical Center02-16-2024 History of Present illness Narrative* Salvador Calix MD - 06/15/2023 2:00 PM EST Images from the original note were not included. NAME: Madhu Rendon CLINIC NO.: [id number] DATE OF SERVICE: June 15, 2023 (Levon) [...] later in 2018. These were found in [place], [place]. I don't have access to these [...] a target-like rash shortly before presenting to [facility] in 2015 with headaches and was diagnosed [...] Monge soon. When she hada stoke in [place], she had symptoms up to a month [...] and stayed on Lovenox Hgb 13.1 @ [facility] Recommended ER if persisting bleeding but she [...] and at age 69. Both lived in [facility] but she was adopted. She was not able to see ID in October and will be seeing Dr. Baugh next week. Also will have her see Dr. Hamlin for her clotting disorder and make any other recommendations to optimize her treatment. Updated Visit, October 08, 2020: Telephone only Received call from pt stating she was seen in [facility] ER for numbness in her chest, throat, and extremities, and sob which has been worsening over the last week. We arranged a telephone visit for her toreview questions with me. Madhu Rendon is a 34 year old female seen for Hypercoagulable state and recent concerns and symptoms that required her to be seen at [facility] ER. She went to the ER with Gradual worsening of breathing after progressive tingling of fingers and legs. She currently remains very fatigued even though she is sleeping well. Now recalls that before her stroke she remembers having a bull's eye rash and was seen with severe headaches in [place], [place] - was found to have a [...] a root canal and was sent to [facility] for MRI which was negative but non-contrasted. [...] history goes back to January 2016 in [facility] where she had persisting headaches and slurred speech followed by lower extremity weakness. This took a few months to resolve and she is back to her normal state of being but some point in time during her her next she was seen by Dr. Humera Hyde in [place] as well and was found to have [...] which included preparing to see the patient, nqgd-yw-fdon patient care, completing clinical documentation, performing a medically appropriate examination, counseling and educating the patient/family/caregiver, ordering medications, tests, or p rocedures, independently interpreting results (not separately reported), communicating results to the patient/family/caregiver, and care coordination (not separately reported). Salvador Calix MD, CPE Hematology and Oncology Services Provided at: [employer], [place], [place] Scribe Attestation: This note was scribed [...] under my direction. CC: MD Wilton Day, [address] [place] [address] Humaira Gaviria MD [address] [place] [id number] MD Cosmo Kingston MD Michael Blank, MD documented in this encounterCommunity Regional Medical Center02-16-2024 NoteHNO ID: [id number] Author: SALVADOR CALIX MD Service: ? Author Type: Physician Type: Progress Notes Filed: 06/17/2023 09:02 Note Text: NAME: Madhu Rendon CLINIC NO.: [id number] DATE OF SERVICE: June 15, 2023 (Levon) [...] later in 2018. These were found in [place], [place]. I don't have access to these [...] a target-like rash shortly before presenting to [facility] in 2016 with headaches and was diagnosed [...] soon. When she had a stoke in [place], she had symptoms up to a month [...] and stayed on Lovenox Hgb 13.1 @ [facility] Recommended ER if persisting bleeding but she [...] helpful as well. We (more content not included)...[facility]02-12-2024 Miscellaneous Notes* Telephone Encounter - Ebony Redding Ma - 06/11/2023 10:43 AM EST Labs for appointment on 06/15. Ebony Redding Ma documented in this encounterCommunity Regional Medical Center02-12-2024 Miscellaneous Notes* Telephone Encounter - [...] since she was last seen by him. [facility] [address], [place], Please fax records Andres, Please follow up on this appt. Thank you documented in this encounterCommunity Regional Medical Center02-01-2024 History of Present illness Narrative* Salvador Calix MD - 05/31/2023 4:30 PM EST Images from the original note were not included. NAME: Madhu Rendon CLINIC NO.: [id number] DATE OF SERVICE: May 31, 2023 (Levon) Some elements in this clinic note that are critical to medical decision making have been carefully reviewed and included from a prior clinic note dated: March 19, 2023 (Levon) Additional Clinicians involved in Madhu Rendon's care: Drs. Herrmann, Jorge Monge, Humaira Gaviria, VIRTUAL VISIT PROGRESS NOTE This is a virtual visit using [employer] Video Visit. It required patient- provider interaction for the medical decision making as documented below. I have communicated my name and active licensure. The patient's identity and physical location wereverified at the time of this visit. Either the patient or their legal appliance service representative has been informed of the risks and benefits of -- and alternatives to -- treatment through a remote evaluation andconsents to proceed with the evaluation remotely. CC: hypercoag state. ASSESSMENT: 37 year old woman 25 weeks presents with a prior history of CVA in 2016 and anantiphospholipid antibody that was identified much later in 2018. These were found in [place], [place]. I don't have access to these [...] a target-like rash shortly before presenting to [facility] in 2016 with headaches and was diagnosed [...] and stayed on Lovenox Hgb 13.1 @ [facility] Recommended ER if persisting bleeding but she [...] and at age 69. Both lived in [facility] but she was adopted. She was not able to see ID in October and will be seeing Dr. Baugh next week. Also will have her see Dr. Hamlin for her clotting disorder and make any other recommendations to optimize her treatment. Updated Visit, October 08, 2020: Telephone only Received call from pt stating she was seen in [facility] ER for numbness in her chest, throat, and extremities, and sob which has been worsening over the last week. We arranged a telephone visit for her chanw questions with me. Madhu Rendon is a 34 year old female seen for Hypercoagulable state and recent concerns and symptoms that required her to be seen at [facility] ER. She went to the ER with Gradual worsening of breathing after progressive tingling of fingers and legs. She currently remains very fatigued even though she is sleeping well. Now recalls that before her stroke she remembers having a bull's eye rash and was seen with severe headaches in [facility] was found to have a stroke in [...] a root canal and was sent to [facility] for MRI which was negative but non-contrasted. [...] history goes back to January 2016 in [facility] where she had persisting headaches and slurred speech followed by lower extremity weakness. This took a few months to resolve and she is back to her normal state of being but some point in time during her her next she was seen by Dr. Humera Hyde in [place] as well and was found to have [...] ECOG PERFORMANCE STATUS: 0 PHYSICAL EXAMINATION: Vitals: [facility] 04/08/2019 There is no height or [...] CPE Hematology and Oncology Services Provided at: [place], [place] CC: MD Wilton Day, DO [address] [place] [address] Humaira Gaviria MD [address] [id number] MD Cosmo Kingston MD Michael Blank, MD documented in this encounterCommunity Regional Medical Center02-01-2024 NoteHNO ID: [id number] Author: SALVADOR CALIX MD Service: ? Author Type: Physician Type: Progress Notes Filed: 06/05/2023 20:39 Note Text: NAME: Madhu Rendon CLINIC NO.: [id number] DATE OF SERVICE: May 31, 2023 (Levon) Some elements in this clinic note that are critical to medical decision making have been carefully reviewed and included from a prior clinic note dated: March 19, 2023 (Levon) Additional Clinicians involved in Madhu Rendon's care: Jorge Mcwilliams, Humaira Gaviria, Dr. Boothe VIRTUAL VISIT PROGRESS NOTE This is a virtual visit using [employer] Zoom Video Visit. It required patient-provider interaction for the medical decision making as documented below. I have communicated my name and active licensure. The patient's identity and physical location were verified at the time of this visit. Either the patient or their legal appliance service representative has been informed of the risks and benefits of -- and alternatives to -- treatment through a remote evaluation and consents to proceed with the evaluation remotely. CC: hypercoag state. ASSESSMENT: 37 year old woman 25 weeks presents with a prior history of CVA in 2016 and an antiphospholipid antibody that was identified much later in 2018. These were found in [place], [place]. I don't have access to these [...] a target-like rash shortly before presenting to [facility] in 2016 with headaches and was diagnosed [...] and stayed on Lovenox Hgb 13.1 @ [facility] Recommended ER if persisting bleeding but she [...] she found Dr. Lujan (more content not included)...[facility] 05-31-2023 Instructions* Patient Instructions* Salvador Calix [...] TSH, Calcium with CMP documented in this encounterCommunity Regional Medical Center01-26-2024 Hospital Discharge instructions Patient Education [...] your ears completely after. General instructions Take hghi-qup-tagakky and prescription medicines only as told by [...] provider. Document Revised: 06/27/2021 Document Reviewed: 06/27/2021 [employer] Patient Education 2022 SmartStart. 05/25/2023 12:02:06 Dyshidrotic Eczema Dyshidrotic Eczema Dyshidrotic [...] care provider who specializes in skin conditions (puff ironer) tohelp diagnose and treat this condition. How [...] locks in moisture. Medicines Take and apply gibz-rkx-zmadaes and prescription medicines only as told by [...] provider. Document Revised: 01/24/2021 Document Reviewed: 01/24/2021 [employer] Patient Education 2022 [employer]Start. 05/25/2023 12:02:02 Allergies, Adult, Tlnt-yx-Djht Allergies, Adult An allergy means that your [...] instructions at home: Medicines Take or apply plup-yld-jaenazf and prescription medicines only as told by [...] to the hospital. Summary Take or apply fafa-xsp-ykjzddv and prescription medicines only as told by [...] provider. Document Revised: 02/25/2020 Document Reviewed: 02/25/2020 [employer] Patient Education 2022 [employer]Start. Follow Up Care 05/21/2023 12:21:27 With:PRAVEEN RESENDEZ FAAFP, Evans Tony, CHRIS, PED Address: [place], [place] [place] [address]- When:Within 2 Month(s) [facility] 11-20-2023 History of Present illness Narrative* Salvador Calix MD - 03/19/2023 4:45 PM EST Images from the original note were not included. NAME: Madhu Rendon CLINIC NO.: [id number] DATE OF SERVICE: March 19, 2023 (Levon) [...] visit. Either the patient or their legal appliance service representative has been informed of the risks and benefits of -- and alternatives to -- treatment through a remote evaluation andconsents to proceed with the evaluation remotely. CC: hypercoag state. ASSESSMENT: 37 year old woman 25 weeks presents with a prior history of CVA in 2016 and anantiphospholipid antibody that was identified much later in 2018. These were found in [place], [place]. I don't have access to these [...] a target-like rash shortly before presenting to [facility] in 2016 with headaches and was diagnosed [...] and stayed on Lovenox Hgb 13.1 @ [facility] Recommended ER if persisting bleeding but she [...] and at age 69. Both lived in [facility] but she was adopted. She was not able to see ID in October and will be seeing Dr. Baugh next week. Also will have her see Dr. Hamlin for her clotting disorder and make any other recommendations to optimize her treatment. Updated Visit, October 08, 2020: Telephone only Received call from pt stating she was seen in [facility] ER for numbness in her chest, throat, and extremities, and sob which has been worsening over the last week. We arranged a telephone visit for her chanw questions with me. Madhu Rendon is a 34 year old female seen for Hypercoagulable state and recent concerns and symptoms that required her to be seen at [facility] ER. She went to the ER with Gradual worsening of breathing after progressive tingling of fingers and legs. She currently remains very fatigued even though she is sleeping well. Now recalls that before her stroke she remembers having a bull's eye rash and was seen with severe headaches in [place], [place] - was found to have a [...] a root canal and was sent to [facility] for MRI which was negative but non-contrasted. [...] history goes back to January 2016 in [facility] where she had persisting headaches and slurred speech followed by lower extremity weakness. This took a few months to resolve and she is back to her normal state of being but some point in time during her her next she was seen by Dr. Humera Hyde in [place] as well and was found to have [...] CPE Hematology and Oncology Services Provided at: [place], [place] CC: MD Wilton Day, [address] [place] [address] Humaira Gaviria MD [address] [place] [id number] MD Cosmo Kingston MD Michael Blank, MD documented in this encounterCommunity Regional Medical Center11-20-2023 NoteHNO ID: [id number] Author: Salvador Calix MD Service: ? Author Type: Physician Type: Progress Notes Filed: 03/20/2023 10:20 AM Note Text: NAME: Madhu Rendon CLINIC NO.: [id number] DATE OF SERVICE: March 19, 2023 (Levon) [...] visit. Either the patient or their legal appliance service representative has been informed of the risks and benefits of -- and alternatives to -- treatment through a remote evaluation and consents to proceed with the evaluation remotely. CC: hypercoag state. ASSESSMENT: 37 year old woman 25 weeks presents with a prior history of CVA in 2016 and an antiphospholipid antibody that was identified much later in 2018. These were found in [place], [place]. I don't have access to these [...] a target-like rash shortly before presenting to [facility] in 2016 with headaches and was diagnosed [...] and stayed on Lovenox Hgb 13.1 @ [facility] Recommended ER if persisting bleeding but she [...] is otherwise getting along (more content not included)...[facility]11-20-2023 Instructions* Patient Instructions* Salvador Calix MD - 03/19/2023 4:44 PM EST Continue Lovenox - patient prefers 40 mg (rather than rec 80mg) Take B12 supplement in the form of a sublingual tablet. Take Vitamin D3 5000 international unit(s) daily Check labs in 8 weeks Phone / Virtual call after documented in this encounterCommunity Regional Medical Center10-19-2023 Hospital Discharge instructions Patient Education 02/15/2023 10:13:08 Ear Drops, Adult, Egul-lj-Xini Ear Drops, Adult Your doctor has found [...] cannot use soap and water, use hand machine operations supervisor. 2.Make sure your ears are clean and [...] you cannot use soapand water, use hand machine operations supervisor. Follow these instructions at home: Use the [...] provider. Document Revised: 02/11/2020 Document Reviewed: 02/11/2020 [employer] Patient Education 2022 [employer]Start. 02/15/2023 10:13:05 Otitis Externa, Hivy-qc-Eswd Otitis Externa Otitis externa is an infection [...] if you start to feel better. Take unpw-zls-vhkymbc and prescription medicines only as told by [...] provider. Document Revised: 06/29/2021 Document Reviewed: 06/29/2021 [employer] Patient Education 2022 [employer] Follow Up Care 02/14/2023 12:28:12 With:PRAVEEN RESENDEZ FAAFP, CHRIS Perez, PED Address: [address] [place] [address] [place] [address]- When:Within 2 Month(s) [facility] 08-25-2023 Hospital Discharge instructions Patient [...] including vitamins, herbs, eye drops, creams, and qdsu-vcy-wlzledm medicines. ?Whether you are or may be [...] provider. Document Revised: 12/28/2021 Document Reviewed: 11/19/2020 [employer] Patient Education 2022 [employer]Start. 12/22/2022 15:19:23 Fatigue Fatigue If you have [...] Follow these instructions at home: Medicines Take abtc-uzg-jjsrpmg and prescription medicines only as told by [...] the National Suicide Prevention Lifeline at or 260. This is open 24 hours a day. Text the Crisis Text Line at 227266. Summary If you have fatigue, you feel [...] provider. Document Revised: 02/06/2022 Document Reviewed: 02/06/2022 [employer] Patient Education 2022 [employer]. Follow Up Care 12/22/2022 10:22:02 With:Lourdes Urrutia Address: [address] [place] [address], [address] [place] [id number]- When: only if needed [facility] 08-25-2023 Instructions* Patient Instructions* Salvador Calix MD - 12/22/2022 10:13 AM EDT Continue Lovenox - patient prefers 40 mg (rather than rec 80mg) Take B12 supplement in the form of a sublingual tablet. Take Vitamin D3 5000 international unit(s) daily Check labs in 8 weeks Phone / Virtual call after documented in this encounterCommunity Regional Medical Center08-25-2023 History of Present illness Narrative* Salvador Calix MD - 12/22/2022 9:55 AM EDT Images from the original note were not included. Salvador Calix MD NAME: Madhu Rendon CLINIC NO.: [id number] DATE OF SERVICE: December 22, 2022 (Levon) [...] visit. Either the patient or their legal appliance service representative has been informed of the risks and benefits of -- and alternatives to -- treatment through a remote evaluation andconsents to proceed with the evaluation remotely. CC: hypercoag state. ASSESSMENT: 37 year old woman with a prior history of CVA in 2016 and an antiphospholipid antibody that was identified much later in 2018. These were found in [place], [place]. I don't have access to these [...] a target-like rash shortly before presenting to [facility] in 2015 with headaches and was diagnosed [...] and stayed on Lovenox Hgb 13.1 @ [facility] Recommended ER if persisting bleeding but she [...] and at age 69. Both lived in [facility] but she was adopted. She was not able to see ID in October and will be seeing Dr. Baugh next week. Also will have her see Dr. Hamlin for her clotting disorder and make any other recommendations to optimize her treatment. Updated Visit, October 08, 2020: Telephone only Received call from pt stating she was seen in [facility] ER for numbness in her chest, throat, and extremities, and sob which has been worsening over the last week. We arranged a telephone visit for her toreview questions with me. Madhu Rendon is a 34 year old female seen for Hypercoagulable state and recent concerns and symptoms that required her to be seen at [facility] ER. She went to the ER with Gradual worsening of breathing after progressive tingling of fingers and legs. She currently remains very fatigued even though she is sleeping well. Now recalls that before her stroke she remembers having a bull's eye rash and was seen with severe headaches in [facility] was found to have a stroke in [...] a root canal and was sent to [facility] for MRI which was negative but non-contrasted. [...] history goes back to January 2016 in [facility] where she had persisting headaches and slurred speech followed by lower extremity weakness. This took a few months to resolve and she is back to her normal state of being but some point in time during her her next she was seen by Dr. Humera Hyde in [place] as well and was found to have [...] CPE Hematology and Oncology Services Provided at: [place], [place] CC: MD Wilton Day, [address] [place] [address] Humaira Gaviria MD [address] [place] [address] MD Cosmo Kingston MD Michael Blank, MD documented in this encounterCommunity Regional Medical Center08-16-2023 Miscellaneous Notes* Telephone Encounter - [...] later time. Harjit Haskins documented in this encounterCommunity Regional Medical Center06-23-2023 Hospital Discharge instructions Patient Education [...] your health care provider or diet and vision specialist (dietitian). This may include: ?Eating fewer calories. [...] provider. Document Revised: 06/12/2021 Document Reviewed: 06/12/2021 [employer] Patient Education 2022 [employer]. 10/20/2022 10:37:18 Preventing Type 2 Diabetes Mellitus [...] with a registered dietitian. This diet and vision specialist can help you make a healthy eating plan and help you understand portion sizes and food labels. Where to find support Ask your health care provider to recommend a registered dietitian, a certified diabetes care and theater education teacher, or a weight loss program. Look for local or online weight loss groups. Join a gym, fitness club, or outdoor activity group, such as a walking club. Where to find more information For help and guidance and to learn more about diabetes and diabetes prevention, visit: [place] Diabetes Association (ADA): www.diabetes.org National [place] of Diabetes and Digestive and Kidney Diseases: [...] provider. Document Revised: 07/11/2021 Document Reviewed: 07/11/2021 [employer] Patient Education 2022 SmartStart. 10/20/2022 10:37:17 Preventing Hypoglycemia Preventing Hypoglycemia Hypoglycemia [...] your hypoglycemia. Where to find more information [place] Diabetes Association: www.diabetes.org National [place] of Diabetes and Digestive and Kidney Diseases: [...] provider. Document Revised: 03/17/2021 Document Reviewed: 03/17/2021 [employer] Patient Education 2022 [employer]. 10/20/2022 10:37:16 Gestational Diabetes Mellitus, Diagnosis, Jnlz-mt-Rzte Gestational Diabetes Mellitus, Diagnosis Gestational diabetes mellitus [...] follow-up visits. Where to find more information [place] Diabetes Association (ADA): diabetes.org Association of Diabetes Care & Education Specialists (ADCES): diabeteseducator.org Centers for Disease Control and Prevention (CDC): cdc.gov [place] Association: americanpregnancy.org U.S. Department of Agriculture MyPlate: [...] provider. Document Revised: 09/20/2020 Document Reviewed: 09/20/2020 [employer] Patient Education 2022 SmartStart. Follow Up Care 09/19/2022 14:47:09 With:PRAVEEN RESENDEZ FAAFP, Evans Tony, CHRIS, PED Address: [address] [place] [address] [place] [phone] When:Within 3 Month(s) [facility] 06-01-2023 History of Present illness Narrative* Salvador Calix MD - 09/28/2022 5:00 PM EDT Images from the original note were not included. Salvador Calix MD NAME: Madhu Rendon CLINIC NO.: [id number] DATE OF SERVICE: September 28, 2022 (Levon) [...] visit. Either the patient or their legal appliance service representative has been informed of the risks and benefits of -- and alternatives to -- treatment through a remote evaluation andconsents to proceed with the evaluation remotely. CC: hypercoag state. ASSESSMENT: 36 year old woman 25 weeks presents with a prior history of CVA in 2016 and anantiphospholipid antibody that was identified much later in 2018. These were found in [place], [place]. I don't have access to these [...] a target-like rash shortly before presenting to [facility] in 2016 with headaches and was diagnosed [...] and stayed on Lovenox Hgb 13.1 @ [facility] Recommended ER if persisting bleeding but she [...] and at age 69. Both lived in [facility] but she was adopted. She was not able to see ID in October and will be seeing Dr. Baugh next week. Also will have her see Dr. Hamlin for her clotting disorder and make any other recommendations to optimize her treatment. Updated Visit, October 08, 2020: Telephone only Received call from pt stating she was seen in [facility] ER for numbness in her chest, throat, and extremities, and sob which has been worsening over the last week. We arranged a telephone visit for her chanw questions with me. Madhu Rendon is a 34 year old female seen for Hypercoagulable state and recent concerns and symptoms that required her to be seen at [facility] ER. She went to the ER with Gradual worsening of breathing after progressive tingling of fingers and legs. She currently remains very fatigued even though she is sleeping well. Now recalls that before her stroke she remembers having a bull's eye rash and was seen with severe headaches in [facility] was found to have a stroke in [...] a root canal and was sent to [facility] for MRI which was negative but non-contrasted. [...] history goes back to January 2016 in [facility] where she had persisting headaches and slurred speech followed by lower extremity weakness. This took a few months to resolve and she is back to her normal state of being but some point in time during her her next she was seen by Dr. Humera Hyde in [place] as well and was found to have [...] CPE Hematology and Oncology Services Provided at: [place], [place] CC: MD Wilton Day, DO [address] [place] [address] Humaira Gaviria MD [address] [facility] [address] [address] MD Cosmo Kingston MD Michael Blank, MD documented in this encounterCommunity Regional Medical Center05-24-2023 Miscellaneous Notes* Telephone Encounter - Cheri Acharya Sec - 09/20/2022 7:06 AM EDT Cxed appt * Telephone Encounter - Valeri Yan RN - 09/19/2022 3:29 PM EDT Patient would like to have labs drawn at [facility]. Called [facility] lab to get fax number. Lab orders faxed to [phone] Valeri Yan RN PSS: Can you cancel lab appointment for 09/21/22 here. Thanks. Valeri Yan RN documented in this encounterCommunity Regional Medical Center04-04-2023 Instructions* Patient Instructions* Salvador Calix MD - 08/01/2022 10:56 AM EDT Continue Lovenox - patient prefers 40 mg (rather than rec 80mg) 8 weeks - labs Phone / Virtual call after documented in this encounterCommunity Regional Medical Center03-30-2023 History of Present illness Narrative* Salvador Calix MD - 07/27/2022 1:18 PM EDT NAME: Madhu Rendon CLINIC NO.: [id number] DATE OF SERVICE: July 27, 2022 (Levon) [...] later in 2018. These were found in [place], [place]. I don't have access to these [...] a target-like rash shortly before presenting to [facility] in 2016 with headaches and was diagnosed [...] and at age 69. Both lived in [facility] but she was adopted. She was not able to see ID in October and will be seeing Dr. Baugh next week. Also will have her see Dr. Hamlin for her clotting disorder and make any other recommendations to optimize her treatment. Updated Visit, October 08, 2020: Telephone only Received call from pt stating she was seen in [facility] ER for numbness in her chest, throat, and extremities, and sob which has been worsening over the last week. We arranged a telephone visit for her franci questions with me. Madhu Rendon is a 34 year old female seen for Hypercoagulable state and recent concerns and symptoms that required her to be seen at [facility] ER. She went to the ER with Gradual worsening of breathing after progressive tingling of fingers and legs. She currently remains very fatigued even though she is sleeping well. Now recalls that before her stroke she remembers having a bull's eye rash and was seen with severe headaches in [facility] was found to have a stroke in [...] a root canal and was sent to [facility] for MRI which was negative but non-contrasted. [...] history goes back to January 2016 in [facility] where she had persisting headaches and slurred speech followed by lower extremity weakness. This took a few months to resolve and she is back to her normal state of being but some point in time during her her next she was seen by Dr. Humera Hyde in [place] as well and was found to have [...] which included preparing to see the patient, [id number] patient care, completing clinical documentation, obtaining and/or reviewing separately obtained history, performing a medically appropriate examination, counseling and educating the pat ient/family/caregiver, ordering medications, tests, or procedures, independently interpreting results (not separately reported), and care coordination (not separately reported). Salvador Calix MD, CPE Hematology and Oncology Services Provided at: [place], [place] CC: MD Wilton Day, [address] [place] [address] Humaira Gaviria MD [address] [place] [address] MD Cosmo Kingston MD Michael Blank, MD documented in this encounterCommunity Regional Medical Center12-07-2022 History of Present illness Narrative* [...] to standard infusion rate. documented in this encounterCommunity Regional Medical Center12-06-2022 Miscellaneous Notes* Telephone Encounter - [...] appt. All questions answered. Pt transferred to front desk admin at her request so she can reschedule dates of IV iron d/t otherappts. FELY: Pt would like to have Venofer ordered and not get Monoferric even if approved. Please place orders if agreeable. Meme Gonzalez RN documented in this encounterCommunity Regional Medical Center12-01-2022 Miscellaneous Notes* Telephone Encounter - [...] were not included. Salvador Calix MD P [facility] Triage Pool; [facility] Clerical Pool She needs iron MUNIRA - if monoferric isn't approved, lets get her in weekly for Venna for. * Telephone Encounter - Harjit Haskins - 03/27/2022 2:57 PM EST 2. Consider IV iron a. Triage nurse to please call iron results when available this week documented in this encounterCommunity Regional Medical Center11-28-2022 Instructions* Patient Instructions* Salvador Calix MD - 03/27/2022 2:51 PM EST Continue Lovenox - patient prefers 40 mg (rather than rec 80mg) Consider IV iron Triage nurse to please call iron results when available this week Will recheck antiphospholipid antibodies as ordered and every 6 months. RTC in 8 weeks - labs same day. documented in this encounterCommunity Regional Medical Center11-28-2022 History of Present illness Narrative* Salvador Calix MD - 03/27/2022 2:15 PM EST Images from the original note were not included. NAME: Madhu Rendon CLINIC NO.: [id number] DATE OF SERVICE: March 27, 2022 (radhaelaina) [...] later in 2018. These were found in [place], [place]. I don't have access to these [...] a target-like rash shortly before presenting to [facility] in 2016 with headaches and was diagnosed [...] and at age 69. Both lived in [place], [place] - but she was adopted. She was not able to see ID in October and will be seeing Dr. Baugh next week. Also will have her see Dr. Hamlin for her clotting disorder and make any other recommendations to optimize her treatment. Updated Visit, October 08, 2020: Telephone only Received call from pt stating she was seen in [facility] ER for numbness in her chest, throat, and extremities, and sob which has been worsening over the last week. We arranged a telephone visit for her toreview questions with me. Madhu Rendon is a 34 year old female seen for Hypercoagulable state and recent concerns and symptoms that required her to be seen at [facility] ER. She went to the ER with Gradual worsening of breathing after progressive tingling of fingers and legs. She currently remains very fatigued even though she is sleeping well. Now recalls that before her stroke she remembers having a bull's eye rash and was seen with severe headaches in [place], [place] - was found to have a [...] a root canal and was sent to [facility] for MRI which was negative but non-contrasted. [...] history goes back to January 2016 in [facility] where she had persisting headaches and slurred speech followed by lower extremity weakness. This took a few months to resolve and she is back to her normal state of being but some point in time during her her next she was seen by Dr. Humera Hyde in [place] as well and was found to have [...] which included preparing to see the patient, pyop-kr-kxap patient care, completing clinical documentation, obtaining and/or reviewing separately obtained history, performing a medically appropriate examination, counseling and educating the pat ient/family/caregiver, ordering medications, tests, or procedures, independently interpreting results (not separately reported), and care coordination (not separately reported). Salvador Calix MD, CPE Hematology and Oncology Services Provided at: [place], [place] CC: MD Wilton Day, [address] [place] [address] Humaira Gaviria MD [address] [place] [address] MD Cosmo Kingston MD Michael Blank, MD documented in this encounterCommunity Regional Medical Center10-03-2022 Instructions* Patient Instructions* Salvador Calix MD - 01/30/2022 12:[address] Hamlin's expertise and will prescribe Lovenox - patient prefers 40 mg (rather than rec 80mg) Will recheck antiphospholipid antibodies as ordered and every 6 months. RTC in 8 weeks - labs same day. documented in this encounterCommunity Regional Medical Center10-03-2022 History of Present illness Narrative* Salvador Calix MD - 01/30/2022 11:59 AM EDT Images from the original note were not included. NAME: Madhu Rendon CLINIC NO.: [id number] DATE OF SERVICE: January 30, 2022 Some [...] later in 2018. These were found in [place], [place]. I don't have access to these [...] a target-like rash shortly before presenting to [facility] in 2016 with headaches and was diagnosed [...] and at age 69. Both lived in [facility] but she was adopted. She was not able to see ID in October and will be seeing Dr. Baugh next week. Also will have her see Dr. Hamlin for her clotting disorder and make any other recommendations to optimize her treatment. Updated Visit, October 08, 2020: Telephone only Received call from pt stating she was seen in [facility] ER for numbness in her chest, throat, and extremities, and sob which has been worsening over the last week. We arranged a telephone visit for her toreview questions with me. Madhu Rendon is a 34 year old female seen for Hypercoagulable state and recent concerns and symptoms that required her to be seen at [facility] ER. She went to the ER with Gradual worsening of breathing after progressive tingling of fingers and legs. She currently remains very fatigued even though she is sleeping well. Now recalls that before her stroke she remembers having a bull's eye rash and was seen with severe headaches in [facility] was found to have a stroke in [...] a root canal and was sent to [facility] for MRI which was negative but non-contrasted. [...] history goes back to January 2016 in [facility] where she had persisting headaches and slurred speech followed by lower extremity weakness. This took a few months to resolve and she is back to her normal state of being but some point in time during her her next she was seen by Dr. Humera Hyde in [place] as well and was found to have [...] which included preparing to see the patient, xzvw-if-ouvg patient care, completing clinical documentation, obtaining and/or reviewing separately obtained history, performing a medically appropriate examination, counseling and educating the pat ient/family/caregiver, and ordering medications, tests, or procedures. Salvador Calix MD, CPE [facility] [place], [place] CC: MD Wilton Day, DO [address] [place] [address] Humaira Gaviria MD [address] [place] [address] MD Cosmo Kingston MD Michael Blank, MD documented in this encounterCommunity Regional Medical Center10-03-2022 Nurse Note* Serina Dawson MA - 01/30/2022 11:55 AM EDT Patient states she may be diagnosed with gestational diabetes, she was from 215 to 52 a couple hours later after eating wheat cereal. She sees OB tomorrow. Serina Dawson MA documented in this encounterCommunity Regional Medical Center09-02-2022 Miscellaneous Notes* Telephone Encounter - Tonja Pope RN - 12/30/2021 10:15 AM EDT Call received from Madhu requesting refill of Lovenox 40 mg to be sent to [facility] in [place]. FELY: Please review and approve if you agree. Tonja Chery RN documented in this encounterCommunity Regional Medical Center06-13-2022 Miscellaneous Notes* Telephone Encounter - Meme Easton RN - 10/10/2021 12:15 PM EDT Received call from pt requesting refill of Lovenox 40 mg to be sent to [facility] in [place]. FELY: Pt also states she had one episode of blood in her stool which was dripping blood which concerned her. She is not ready to move to 80 mg of Lovenox at this time. Order pending. Please review and sign if agreeable. Meme Easton RN documented in this encounterCommunity Regional Medical Center05-10-2022 Miscellaneous Notes* Telephone Encounter - [...] agreeable. Meme Easton RN documented in this encounterCommunity Regional Medical Center05-09-2022 Miscellaneous Notes* Telephone Encounter - [...] advise. Meme Easton RN documented in this encounterCommunity Regional Medical Center04-25-2022 Miscellaneous Notes* Telephone Encounter - [...] Thoughts? Meme Easton RN documented in this encounterCommunity Regional Medical Center04-22-2022 Hospital Discharge instructions Patient Education [...] including vitamins, herbs, eye drops, creams, and pqdk-yxd-inscqgr medicines. ?Whether you are or may be [...] 02/11/2008 Document Revised: 08/05/2019 Document Reviewed: 02/18/2018 [employer] Patient Education 2020 [employer] 08/19/2021 13:02:21 Dysuria Dysuria Dysuria is [...] alcohol may irritate the prostate. Medicines Take nadv-ddu-mrtdbik and prescription medicines only as told by [...] 01/12/2005 Document Revised: 03/29/2018 Document Reviewed: 01/31/2018 [employer] Patient Education 2020 [employer] 08/19/2021 13:02:17 Budget-Friendly Healthy Eating Budget-Friendly [...] frozen fruits, and frozen vegetables. Avoid buying efkzj-gl-zxs foods, such as pre-cut fruits and vegetables [...] 12/18/2014 Document Revised: 04/17/2018 Document Reviewed: 04/17/2018 [employer] Patient Education 2020 [employer]. 08/19/2021 13:02:15 BMI for Adults BMI for [...] height. This can be done either in [place] ([place] or metric measurements. Note that charts are available to help you find your BMI quickly and easily without having to do these calculations yourself. To calculate your BMI in [place] ([place] measurements, your health care provider will: [...] medical problems. BMI can be measured using [place] measurements or metric measurements. To interpret your [...] 12/26/2004 Document Revised: 03/29/2018 Document Reviewed: 02/27/2018 [employer] Patient Education 2020 [employer]. 08/19/2021 13:02:11 Paresthesia Paresthesia Paresthesia is an [...] fried or sweet foods. General instructions Take amin-zvn-vebznuy and prescription medicines only as told by [...] 04/06/2003 Document Revised: 05/12/2019 Document Reviewed: 04/25/2018 [employer] Patient Education 2020 [employer]. Follow Up Care 08/19/2021 09:17:52 With:PRAVEEN RESENDEZ FAAFP, Evans Tony, CHRIS, PED Address: [address] [place] [address] [place] [address]- When:1 to 2 weeks [facility] [place] 04-22-2022 Evaluation + Plan note Future Scheduled Tests Radiology* XR Spine Lumbosacral Minimum 4 Views 08/19/21 [facility]04-07-2022 Miscellaneous Notes* Telephone Encounter - Harjit Haskins - 08/04/2021 3:36 PM EDT Patient is scheduled for 09/[address] Elliott. Harjit Haskins * Telephone Encounter - Harjit Haskins - 08/01/2021 1:05 PM EDT Sent Email to Cancer Answer Line to refer patient back to Dr. Cosmo Elliott Dx: Primary hypercoagulable state (HCC) Harjit Divine documented in this encounterCommunity Regional Medical Center04-04-2022 Nurse Note* Ebony Redding Ma - 08/01/2021 12:48 PM EDT UA ran as ordered. Ebony Redding Ma documented in this encounterCommunity Regional Medical CenterEvaluation + Plan note Future Appointments Appointment Date:11/08/2021 12:40:00 PM Scheduled Provider:Evans CASAS DO, FAAFP Location:[facility] Appointment Type: Open Future Scheduled Tests Radiology* XR Spine Lumbosacral Minimum 4 Views 08/19/21 [facility] [place] Evaluation + Plan note Future Appointments Appointment Date:11/08/2021 12:40:00 PM Scheduled Provider:Evans CASAS DO, FAAFP Location:[facility] Appointment Type: Open Diagnostic Tests Pending * Urine Culture 08/19/21 Future Scheduled Tests Radiology* XR Spine Lumbosacral Minimum 4 Views [facility]19/21 [facility] Future Appointments Appointment Date:09/21/2022 10:00:00 AM Scheduled Provider:Evans CASAS DO, FAAFP Location:[facility] Appointment Type:FM [facility] Future Appointments Appointment Date:10/20/2022 09:40:00 AM Scheduled Provider:Evans CASAS DO, FAAFP Location:[facility] Appointment Type:FM Open [facility] Future Appointments Appointment Date:01/26/2023 10:40:00 AM Scheduled Provider:Evans CASAS DO, FAAFP Location:[facility] Appointment Type:[facility] Evaluation + Plan note Future Appointments Appointment Date:04/17/2023 02:20:00 PM Scheduled Provider:Evans CASAS DO, FAAFP Location:[facility] Appointment Type: Open Future Scheduled Tests Laboratory* HgbA1c 02/15/23 * Thyroid Stimulating Hormone 02/15/23 * Thyroid Stimulating Hormone 01/11/23 [facility] Evaluation + Plan note Future Appointments Appointment Date:07/24/2023 01:20:00 PM Scheduled Provider:Evans ACSAS DO, FAAFP Location:[facility] Appointment Type: Open Future Scheduled Tests Laboratory* HgbA1c 02/15/23 * Thyroid Stimulating Hormone 02/15/23 [facility] Future Appointments Appointment Date:07/24/2023 01:20:00 PM Scheduled Provider:Evans CASAS DO, FAAFP Location:[facility] Appointment Type:[facility] evaluation + Plan note Future Appointments Appointment Date:12/03/2023 12:40:00 PM Scheduled Provider:Evans CASAS DO, FAAFP Location:[facility] Appointment Type: Open Future Scheduled Tests Laboratory* HgbA1c 08/03/23 [facility] Primary [facility] evaluation + Plan note Future Appointments Appointment Date:12/03/2023 12:40:00 PM Scheduled Provider:Evans CASAS DO, FAAFP Location:[facility] Appointment Type: Open Future Scheduled Tests Laboratory* Sedimentation Rate Automated 11/09/23 * HgbA1c 08/03/23 * Amylase Level 11/09/23 * Cortisol 11/09/23 * C-Reactive Protein 11/09/23 * T3 Free 11/09/23 * Thyroid Stimulating Hormone 11/09/23 * Free T4 11/09/23 * Vitamin B12 Level 11/09/23 Radiology* MRI Brain w/o Contrast 11/09/23 * MRI Orbit Face Neck w/o contrast 11/09/23 [facility] evaluation + Plan note Future Appointments Appointment Date:01/11/2024 08:15:00 PM Scheduled Provider: Location:.SLEEP [facility]_ Appointment Type:[employer] Sleep Study PSG () Appointment Date:01/29/2024 01:20:00 PM Scheduled Provider:Evans CASAS DO, FAAFP Location:[facility] Appointment Type:FM Open Diagnostic Tests Pending * Cortisol 12/06/23 * T3 Free 12/06/23 Future Scheduled Tests Laboratory* HgbA1c 08/03/23 Radiology* CT Soft Tissue Neck w/ Contrast 11/12/23 [facility] evaluation + Plan note Future Appointments Appointment Date:05/16/2024 11:40:00 AM Scheduled Provider:Evans CASAS DO, FAAFP Location:[facility] Appointment Type:FM Open Future Scheduled Tests Laboratory* HgbA1c 02/05/24 * HgbA1c 05/07/24 * HgbA1c 08/05/24 * HgbA1c 11/04/24 * HgbA1c 08/03/23 * HIV Screen 4th Generation wRfx 02/05/24 * HIV Screen 4th Generation wRfx 02/05/24 * Lipid Panel 02/05/24 Radiology* CT Soft Tissue Neck w/ Contrast 11/12/23 [facility] Evaluation + Plan note Future Appointments Appointment Date:05/16/2024 11:40:00 AM Scheduled Provider:Evans CASAS DO, FAAFP Location:[facility] Appointment Type:FM Open Future Scheduled Tests Laboratory* HgbA1c 05/07/24 * HgbA1c 08/05/24 * HgbA1c 11/04/24 Radiology* CT Soft Tissue Neck w/ Contrast 11/12/23 [facility] evaluation + Plan note Future Appointments Appointment Date:05/16/2024 11:40:00 AM Scheduled Provider:Evans CASAS DO, FAAFP Location:[facility] Appointment Type:FM Open Diagnostic Tests Pending * HIV Screen 4th Generation wRfx 02/23/24 Future Scheduled Tests Laboratory* HgbA1c 05/07/24 * HgbA1c 08/05/24 * HgbA1c 11/04/24 Radiology* CT Soft Tissue Neck w/ Contrast 11/12/23 [facility] evaluation + Plan note Future Appointments Appointment Date:05/16/2024 11:40:00 AM Scheduled Provider:Evans CASAS DO, FAAFP Location:[facility] Appointment Type:FM Open Future Scheduled Tests Laboratory* HgbA1c 08/05/24 * HgbA1c 11/04/24 Radiology* CT Soft Tissue Neck w/ Contrast 11/12/23 [facility] evaluation + Plan note Future Appointments Appointment Date:05/16/2024 11:40:00 AM Scheduled Provider:Evans CASAS DO, FAAFP Location:[facility] Appointment Type:FM Open Diagnostic Tests Pending * Urine Culture 03/01/24 Future Scheduled Tests Laboratory* HgbA1c 08/05/24 * HgbA1c 11/04/24 Radiology* CT Soft Tissue Neck w/ Contrast 11/12/23 [facility] evaluation note* Diagnosis Infective urethritis- Primary Urethritis, unspecified [facility] Diagnosis Primary hypercoagulable state (HCC) Primary hypercoagulable state CVA, old, speech/language deficit Speech and language deficit, unspecified, 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 Hyposmolality and/or hyponatremia [facility] Diagnosis Primary hypercoagulable state (HCC) Primary hypercoagulable state CVA, old, speech/language deficit Speech and language deficit, unspecified, 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 Hyposmolality and/or hyponatremia documented [facility]* Diagnosis Primary hypercoagulable state (HCC)- Primary Primary hypercoagulable state CVA, old, speech/language deficit Speech and language deficit, unspecified, late effect of cerebrovascular disease Antiphospholipid antibody syndrome (HCC) Primary hypercoagulable state Anemia, unspecified type [facility]* Diagnosis Iron deficiency anemia secondary to blood loss (chronic) Iron deficiency anemia of Anemia of mother, complicating , childbirth, or the puerperium, unspecified as to episode of care [facility]* 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 Iron deficiency anemia of Anemia of mother, complicating , childbirth, or the puerperium, unspecified as to episode of care [facility]* Diagnosis Primary hypercoagulable state (HCC) Primary hypercoagulable state CVA, old, speech/language deficit Speech and language deficit, unspecified, 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 Hyposmolality and/or hyponatremia documented [facility]* 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 Iron deficiency anemia of Anemia of mother, complicating , childbirth, or the puerperium, unspecified as to episode of care [facility] Diagnosis Primary hypercoagulable state (HCC) Primary hypercoagulable state CVA, old, speech/language deficit Speech and language deficit, unspecified, 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 Hyposmolality and/or hyponatremia [facility] Diagnosis Primary hypercoagulable state (HCC)- Primary Primary hypercoagulable state 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, old, speech/language deficit Speech and language deficit, unspecified, late effect of cerebrovascular disease [facility]* Diagnosis Primary hypercoagulable state (HCC) Primary hypercoagulable state CVA, old, speech/language deficit Speech and language deficit, unspecified, 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 Hyposmolality and/or hyponatremia [facility] Diagnosis Primary hypercoagulable state (HCC)- Primary Primary hypercoagulable state Iron deficiency anemia of Anemia of mother, complicating , childbirth, or the puerperium, unspecified as to episode of care Iron deficiency anemia secondary to blood loss (chronic) Vitamin D deficiency Unspecified vitamin D deficiency [facility]* Diagnosis Primary hypercoagulable state (HCC)- Primary Primary hypercoagulable state Iron deficiency anemia secondary to blood loss (chronic) Vitamin D deficiency Unspecified vitamin D deficiency CVA, old, speech/language deficit Speech and language deficit, unspecified, late effect of cerebrovascular disease Antiphospholipid antibody syndrome (HCC) Primary hypercoagulable state [facility] Diagnosis Primary hypercoagulable state (HCC)- Primary Primary hypercoagulable state CVA, old, speech/language deficit Speech and language deficit, unspecified, late effect of cerebrovascular disease Hypercalcemia Vitamin D deficiency Unspecified vitamin D deficiency Iron deficiency anemia secondary to blood loss (chronic) Malaise and fatigue Other malaise and fatigue [facility] Diagnosis Vitamin D deficiency- Primary Unspecified vitamin D deficiency 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) Antiphospholipid antibody syndrome (HCC) Primary hypercoagulable state Malaise and fatigue Other malaise and fatigue [facility] Diagnosis Vitamin D deficiency- Primary Unspecified vitamin D deficiency 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) [facility] 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 [facility] Diagnosis Iron deficiency anemia of - Primary Anemia of mother, complicating , childbirth, or the puerperium, unspecified as to episode of care Iron deficiency anemia secondary to blood loss (chronic) [facility] Diagnosis Iron deficiency anemia of - Primary Anemia of mother, complicating , childbirth, or the puerperium, unspecified as to episode of care Iron deficiency anemia secondary to blood loss (chronic) [facility] 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 Vitamin D deficiency Unspecified vitamin D deficiency Malaise and fatigue Other malaise and fatigue [facility] Diagnosis Primary hypercoagulable state (HCC) Primary hypercoagulable state CVA, old, speech/language deficit Speech and language deficit, unspecified, 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 Hyposmolality and/or hyponatremia documented [facility] Diagnosis Missed menses , unspecified gestational age Encounter for supervision of normal first in first trimester Hypothyroidism (acquired) (CMS/HCC) Unspecified hypothyroidism Low vitamin D level documented in this encounter [facility]* Diagnosis 14 weeks gestation of Second trimester state, incidental Confirm viability with history of miscarriage, ultrasound Encounter for routine screening for malformation using ultrasonics [facility] Narrative No data available for this section [facility] Discharge instructions No data available for this section [facility] No data available for this section [facility] CenterReason for referral (narrative) , pt reported hx of nasal polyps and deviated septum but never had surgery done Referred by: Lourdes Urrutia [facility] Primary Care Summary Purpose Family History No [...] section and content) DATE CREATED AUTHOR 10/22/2017 [facility] DATE CREATED AUTHOR AUTHOR'S ORGANIZ ATION 11/14/2017 [employer] DATE CREATED AUTHOR AUTHOR'S ORGANIZ ATION 06/18/2018 [facility] DATE CREATED AUTHOR AUTHOR'S ORGANIZ ATION 12/30/2021 [facility] DATE CREATED AUTHOR AUTHOR'S ORGANIZ ATION 06/09/2022 [facility] DATE CREATED AUTHOR AUTHOR'S ORGANIZ ATION 09/29/2023 [facility] DATE CREATED AUTHOR AUTHOR'S ORGANIZ ATION 11/21/2023 [facility]ical [facility] DATE CREATED AUTHOR AUTHOR'S ORGANIZ ATION 12/03/2023 [facility] DATE CREATED AUTHOR AUTHOR'S ORGANIZ ATION 12/09/2023 [facility] DATE CREATED AUTHOR AUTHOR'S ORGANIZ ATION 12/10/2023 [facility] DATE CREATED AUTHOR AUTHOR'S ORGANIZ ATION 01/27/2024 [facility] DATE CREATED AUTHOR AUTHOR'S ORGANIZ ATION 02/24/2024 [facility] DATE CREATED AUTHOR AUTHOR'S ORGANIZ ATION 02/26/2024 [facility] DATE CREATED AUTHOR AUTHOR'S ORGANIZ ATION 02/28/2024 [facility] DATE CREATED AUTHOR AUTHOR'S ORGANIZ ATION 02/29/2024 [facility] DATE CREATED AUTHOR AUTHOR'S ORGANIZ ATION 03/02/2024 [facility] DATE CREATED AUTHOR AUTHOR'S ORGANIZ ATION 03/03/2024 [facility] DATE CREATED AUTHOR AUTHOR'S ORGANIZ ATION 03/08/2024 [facility] Source Comments (unrecognize d section and content) In the event this informatio n is protected by the Federal Confidentiality of Alcohol and Drug Abuse Patient Records regulations: The Federal rules restrict any use of the information to criminally investigate or prosecute any alcohol or drug abuse patient.[facility] the event this information is protected by the Federal Confidentiality of Alcohol and Drug Abuse Patient Records regulations: The Federal rules restrict any use of the information to criminally investigate or prosecute any alcohol or drug abuse patient.[facility] CenterIn the event this information is protected by the Federal Confidentiality of Alcohol and Drug Abuse Patient Records regulations: The Federal rules restrict any use of the information to criminally investigate or prosecute any alcohol or drug abuse patient.[facility] CenterIn the event this information is protected by the Federal Confidentiality of Alcohol and Drug Abuse Patient Records regulations: The Federal rules restrict any use of the information to criminally investigate or prosecute any alcohol or drug abuse patient.[facility] CenterIn the event this information is protected by the Federal Confidentiality of Alcohol and Drug Abuse Patient Records regulations: The Federal rules restrict any use of the information to criminally investigate or prosecute any alcohol or drug abuse patient.[facility] CenterIn the event this information is protected by the Federal Confidentiality of Alcohol and Drug Abuse Patient Records regulations: The Federal rules restrict any use of the information to criminally investigate or prosecute any alcohol or drug abuse patient.[facility] CenterIn the event this information is protected by the Federal Confidentiality of Alcohol and Drug Abuse Patient Records regulations: The Federal rules restrict any use of the information to criminally investigate or prosecute any alcohol or drug abuse patient.[facility] CenterIn the event this information is protected by the Federal Confidentiality of Alcohol and Drug Abuse Patient Records regulations: The Federal rules restrict any use of the information to criminally investigate or prosecute any alcohol or drug abuse patient.[facility] CenterIn the event this information is protected by the Federal Confidentiality of Alcohol and Drug Abuse Patient Records regulations: The Federal rules restrict any use of the information to criminally investigate or prosecute any alcohol or drug abuse patient.[facility] CenterIn the event this information is protected by the Federal Confidentiality of Alcohol and Drug Abuse Patient Records regulations: The Federal rules restrict any use of the information to criminally investigate or prosecute any alcohol or drug abuse patient.[facility] CenterIn the event this information is protected by the Federal Confidentiality of Alcohol and Drug Abuse Patient Records regulations: The Federal rules restrict any use of the information to criminally investigate or prosecute any alcohol or drug abuse patient.[facility] CenterIn the event this information is protected by the Federal Confidentiality of Alcohol and Drug Abuse Patient Records regulations: The Federal rules restrict any use of the information to criminally investigate or prosecute any alcohol or drug abuse patient.[facility] CenterIn the event this information is protected by the Federal Confidentiality of Alcohol and Drug Abuse Patient Records regulations: The Federal rules restrict any use of the information to criminally investigate or prosecute any alcohol or drug abuse patient.[facility] CenterIn the event this information is protected by the Federal Confidentiality of Alcohol and Drug Abuse Patient Records regulations: The Federal rules restrict any use of the information to criminally investigate or prosecute any alcohol or drug abuse patient.[facility] CenterIn the event this information is protected by the Federal Confidentiality of Alcohol and Drug Abuse Patient Records regulations: The Federal rules restrict any use of the information to criminally investigate or prosecute any alcohol or drug abuse patient.[facility] CenterIn the event this information is protected by the Federal Confidentiality of Alcohol and Drug Abuse Patient Records regulations: The Federal rules restrict any use of the information to criminally investigate or prosecute any alcohol or drug abuse patient.[facility] CenterIn the event this information is protected by the Federal Confidentiality of Alcohol and Drug Abuse Patient Records regulations: The Federal rules restrict any use of the information to criminally investigate or prosecute any alcohol or drug abuse patient.[facility] CenterIn the event this information is protected by the Federal Confidentiality of Alcohol and Drug Abuse Patient Records regulations: The Federal rules restrict any use of the information to criminally investigate or prosecute any alcohol or drug abuse patient.[facility] CenterIn the event this information is protected by the Federal Confidentiality of Alcohol and Drug Abuse Patient Records regulations: The Federal rules restrict any use of the information to criminally investigate or prosecute any alcohol or drug abuse patient.[facility] CenterIn the event this information is protected by the Federal Confidentiality of Alcohol and Drug Abuse Patient Records regulations: The Federal rules restrict any use of the information to criminally investigate or prosecute any alcohol or drug abuse patient.[facility] CenterIn the event this information is protected by the Federal Confidentiality of Alcohol and Drug Abuse Patient Records regulations: The Federal rules restrict any use of the information to criminally investigate or prosecute any alcohol or drug abuse patient.[facility] CenterIn the event this information is protected by the Federal Confidentiality of Alcohol and Drug Abuse Patient Records regulations: The Federal rules restrict any use of the information to criminally investigate or prosecute any alcohol or drug abuse patient.[facility] CenterIn the event this information is protected by the Federal Confidentiality of Alcohol and Drug Abuse Patient Records regulations: The Federal rules restrict any use of the information to criminally investigate or prosecute any alcohol or drug abuse patient.[facility] CenterIn the event this information is protected by the Federal Confidentiality of Alcohol and Drug Abuse Patient Records regulations: The Federal rules restrict any use of the information to criminally investigate or prosecute any alcohol or drug abuse patient.[facility] CenterIn the event this information is protected by the Federal Confidentiality of Alcohol and Drug Abuse Patient Records regulations: The Federal rules restrict any use of the information to criminally investigate or prosecute any alcohol or drug abuse patient.[facility] CenterIn the event this information is protected by the Federal Confidentiality of Alcohol and Drug Abuse Patient Records regulations: The Federal rules restrict any use of the information to criminally investigate or prosecute any alcohol or drug abuse patient.[facility] CenterIn the event this information is protected by the Federal Confidentiality of Alcohol and Drug Abuse Patient Records regulations: The Federal rules restrict any use of the information to criminally investigate or prosecute any alcohol or drug abuse patient.[facility] CenterIn the event this information is protected by the Federal Confidentiality of Alcohol and Drug Abuse Patient Records regulations: The Federal rules restrict any use of the information to criminally investigate or prosecute any alcohol or drug abuse patient.[facility] CenterIn the event this information is protected by the Federal Confidentiality of Alcohol and Drug Abuse Patient Records regulations: The Federal rules restrict any use of the information to criminally investigate or prosecute any alcohol or drug abuse patient.[facility] CenterIn the event this information is protected by the Federal Confidentiality of Alcohol and Drug Abuse Patient Records regulations: The Federal rules restrict any use of the information to criminally investigate or prosecute any alcohol or drug abuse patient.[facility] CenterIn the event this information is protected by the Federal Confidentiality of Alcohol and Drug Abuse Patient Records regulations: The Federal rules restrict any use of the information to criminally investigate or prosecute any alcohol or drug abuse patient.[facility] CenterIn the event this information is protected by the Federal Confidentiality of Alcohol and Drug Abuse Patient Records regulations: The Federal rules restrict any use of the information to criminally investigate or prosecute any alcohol or drug abuse patient.[facility] CenterIn the event this information is protected by the Federal Confidentiality of Alcohol and Drug Abuse Patient Records regulations: The Federal rules restrict any use of the information to criminally investigate or prosecute any alcohol or drug abuse patient.[facility] CenterIn the event this information is protected by the Federal Confidentiality of Alcohol and Drug Abuse Patient Records regulations: The Federal rules restrict any use of the information to criminally investigate or prosecute any alcohol or drug abuse patient.[facility] CenterIn the event this information is protected by the Federal Confidentiality of Alcohol and Drug Abuse Patient Records regulations: The Federal rules restrict any use of the information to criminally investigate or prosecute any alcohol or drug abuse patient.[facility] CenterIn the event this information is protected by the Federal Confidentiality of Alcohol and Drug Abuse Patient Records regulations: The Federal rules restrict any use of the information to criminally investigate or prosecute any alcohol or drug abuse patient.[facility] CenterIn the event this information is protected by the Federal Confidentiality of Alcohol and Drug Abuse Patient Records regulations: The Federal rules restrict any use of the information to criminally investigate or prosecute any alcohol or drug abuse patient.[facility] CenterIn the event this information is protected by the Federal Confidentiality of Alcohol and Drug Abuse Patient Records regulations: The Federal rules restrict any use of the information to criminally investigate or prosecute any alcohol or drug abuse patient.[facility] CenterIn the event this information is protected by the Federal Confidentiality of Alcohol and Drug Abuse Patient Records regulations: The Federal rules restrict any use of the information to criminally investigate or prosecute any alcohol or drug abuse patient.[facility] CenterIn the event this information is protected by the Federal Confidentiality of Alcohol and Drug Abuse Patient Records regulations: The Federal rules restrict any use of the information to criminally investigate or prosecute any alcohol or drug abuse patient.[facility] CenterIn the event this information is protected by the Federal Confidentiality of Alcohol and Drug Abuse Patient Records regulations: The Federal rules restrict any use of the information to criminally investigate or prosecute any alcohol or drug abuse patient.[facility] CenterIn the event this information is protected by the Federal Confidentiality of Alcohol and Drug Abuse Patient Records regulations: The Federal rules restrict any use of the information to criminally investigate or prosecute any alcohol or drug abuse patient.[facility] CenterIn the event this information is protected by the Federal Confidentiality of Alcohol and Drug Abuse Patient Records regulations: The Federal rules restrict any use of the information to criminally investigate or prosecute any alcohol or drug abuse patient.[facility] Care Teams (unrecognized sec tion and content) Wallcovering Texturer Relationship Specialty Start Date End Date Humaira Gaviria MD [address] [place] [facility] [place] [place] [address] PCP - General Internal Medicine 07/05/18 Jonny Wilcox MD [address] [place] [address] Primary Staff Physician Cardiology 07/16/18 Wallcovering Texturer Relationship Specialty Start Date End Date Humaira Gaviria MD [address] [place] [facility] [place] [address] PCP - General Internal Medicine 07/05/18 Jonny Wilcox MD [address] [facility] [place] [address] Primary Staff Physician Cardiology 07/16/18 Wallcovering Texturer Relationship Specialty Start Date End Date Humaira Gaviria MD [address] [place] [facility] [place] [address] PCP - General Internal Medicine 07/05/18 Jonny Wilcox MD [address] [facility] [place] [address] Primary Staff Physician Cardiology 07/16/18 Wallcovering Texturer Relationship Specialty Start Date End Date Humaira Gaviria MD [address] [place] [facility] [place] [address] PCP - General Internal Medicine 07/05/18 Jonny Wilcox MD [address] [place] [address] Primary Staff Physician Cardiology 07/16/18 Wallcovering Texturer Relationship Specialty Start Date End Date Humaira Gaviria MD [address] [place] [facility] [place] [address] PCP - General Internal Medicine 07/05/18 Jonny Wilcox MD [address] [place] [address] Primary Staff Physician Cardiology 07/16/18 [place] [address] [place] [address] Physician Hematology/Oncology 09/14/21 Davida Restrepo, RN [address] [place] [address] Specialty Smoking Pipes Cleaner Hematology/Oncology 09/14/21 Wallcovering Texturer Relationship Specialty Start Date End Date Evans Casas [address] [place] [address] PCP - General Family Medicine 10/04/20 Wallcovering Texturer Relationship Specialty Start Date End Date Humaira Gaviria MD [address] [place] [address] PCP - General Internal Medicine 07/05/18 Jonny Wilcox MD [address] [place] [address] Primary Staff Physician Cardiology 07/16/18 [place] [address] [place] [address] Physician Hematology/Oncology 09/14/21 Davida Restrepo, RN [address] [place] [address] Specialty Smoking Pipes Cleaner Hematology/Oncology 09/14/21 Wallcovering Texturer Relationship Specialty Start Date End Date Evans Casas DO [address] [facility] [place] [address] PCP - General Family Medicine 01/30/22 Jonny Wilcox MD [address] [place] [address] Primary Staff Physician Cardiology 07/16/18 [place] [address] [place] [address] Physician Hematology/Oncology 09/14/21 Davida Restrepo, RN [address] [place] [address] Specialty Smoking Pipes Cleaner Hematology/Oncology 09/14/21 Wallcovering Texturer Relationship Specialty Start Date End Date Evans Casas DO [address] [address] PCP - General Family Medicine 01/30/22 Jonny Wilcox MD [address] [place] [address] Primary Staff Physician Cardiology 07/16/18 [place] [address] [place] [address] Physician Hematology/Oncology 09/14/21 Davida Restrepo RN [address] [place] [address] Specialty Smoking Pipes Cleaner Hematology/Oncology 09/14/21 Wallcovering Texturer Relationship Specialty Start Date End Date Evans Casas DO [address] [place] [place] [address] PCP - General Family Medicine 01/30/22 Jonny Wilcox MD [address] [place] [address] Primary Staff Physician Cardiology 07/16/18 [place] [address] [place] [address] Physician Hematology/Oncology 09/14/21 Davida Restrepo, RN [address] [place] [address] Specialty Smoking Pipes Cleaner Hematology/Oncology 09/14/21 Wallcovering Texturer Relationship Specialty Start Date End Date Evans Casas DO [address] [place] [address] PCP - General Family Medicine 01/30/22 Jonny Wilcox MD [address] [place] [address] Primary Staff Physician Cardiology 07/16/18 [place] [address] [place] [address] Physician Hematology/Oncology 09/14/21 Davida Restrepo, RN [address] [place] [address] Specialty Smoking Pipes Cleaner Hematology/Oncology 09/14/21 Wallcovering Texturer Relationship Specialty Start Date End Date Evans Casas DO [address] [address] PCP - General Family Medicine 01/30/22 Jonny Wilcox MD [address] [place] [address] Primary Staff Physician Cardiology 07/16/18 [place] [address] [place] [address] Physician Hematology/Oncology 09/14/21 Davida Restrepo, RN [address] [place] [address] Specialty Smoking Pipes Cleaner Hematology/Oncology 09/14/21 Wallcovering Texturer Relationship Specialty Start Date End Date Evans Casas DO [address] [place] [address] PCP - General Family Medicine 01/30/22 Jonny Wilcox MD [address] [place] [address] Primary Staff Physician Cardiology 07/16/18 [place] [address] [place] [address] Physician Hematology/Oncology 09/14/21 Davida Restrepo, RN [address] [place] [address] Specialty Smoking Pipes Cleaner Hematology/Oncology 09/14/21 Wallcovering Texturer Relationship Specialty Start Date End Date Evans Casas, DO [address] [place] [address] PCP - General Family Medicine 01/30/22 Jonny Wilcox MD [address] [place] [address] Primary Staff Physician Cardiology 07/16/18 [place] [address] [place] [address] Physician Hematology/Oncology 09/14/21 Davida Restrepo, RN [address] [place] [address] Specialty Smoking Pipes Cleaner Hematology/Oncology 09/14/21 Wallcovering Texturer Relationship Specialty Start Date End Date Evans Casas, DO [address] [place] [address] PCP - General Family Medicine 01/30/22 Jonny Wilcox MD [address] [place] [address] Primary Staff Physician Cardiology 07/16/18 [place] [address] [place] [address] Physician Hematology/Oncology 09/14/21 Davida Restrepo, RN [address] [place] [address] Specialty Smoking Pipes Cleaner Hematology/Oncology 09/14/21 Wallcovering Texturer Relationship Specialty Start Date End Date Evans Casas DO [address] [place] [address] PCP - General Family Medicine 01/30/22 Jonny Wilcox MD [address] [place] [address] Primary Staff Physician Cardiology 07/16/18 [place] [address] [place] [address] Physician Hematology/Oncology 09/14/21 Davida Restrepo, RN [address] [place] [address] Specialty Smoking Pipes Cleaner Hematology/Oncology 09/14/21 Wallcovering Texturer Relationship Specialty Start Date End Date Evans Casas DO [address] [facility] [place] [address] PCP - General Family Medicine 01/30/22 Jonny Wilcox MD [address] [place] [address] Primary Staff Physician Cardiology 07/16/18 [place] [address] [place] [address] Physician Hematology/Oncology 09/14/21 Davida Restrepo, MARSHA [address] [place] [address] Specialty Smoking Pipes Cleaner Hematology/Oncology 09/14/21 Wallcovering Texturer Relationship Specialty Start Date End Date Evans Casas DO [address] [place] [address] PCP - General Family Medicine 01/30/22 Jonny Wilcox MD [address] [facility] [place] [address] Primary Staff Physician Cardiology 07/16/18 [place] [address] [place] [address] Physician Hematology/Oncology 09/14/21 Davida Restrepo RN [address] [facility] [place] [address] Specialty Smoking Pipes Cleaner Hematology/Oncology 09/14/21 Wallcovering Texturer Relationship Specialty Start Date End Date Evans Casas DO [address] [place] [address] PCP - General Family Medicine 01/30/22 Jonny Wilcox MD [address] [place] [address] Primary Staff Physician Cardiology 07/16/18 [place] [address] [place] [address] Physician Hematology/Oncology 09/14/21 Davida Restrepo RN [address] [facility] [place] [address] Specialty Smoking Pipes Cleaner Hematology/Oncology 09/14/21 Wallcovering Texturer Relationship Specialty Start Date End Date Evans Casas DO [address] [place] [address] PCP - General Family Medicine 01/30/22 Jonny Wilcox MD [address] [facility] [place] [address] Primary Staff Physician Cardiology 07/16/18 [place] [address] [place] [address] Physician Hematology/Oncology 09/14/21 Davida Restrepo, RN [address] [place] [address] Specialty Smoking Pipes Cleaner Hematology/Oncology 09/14/21 Wallcovering Texturer Relationship Specialty Start Date End Date Evans Casas DO [address] [facility] [place] [address] PCP - General Family Medicine 01/30/22 Jonny Wilcox MD [address] [place] [address] Primary Staff Physician Cardiology 07/16/18 [place] [address] [place] [address] Physician Hematology/Oncology 09/14/21 Davida Restrepo, RN [address] [place] [address] Specialty Smoking Pipes Cleaner Hematology/Oncology 09/14/21 Wallcovering Texturer Relationship Specialty Start Date End Date Evans Casas DO [address] [facility] [place] [address] PCP - General Family Medicine 01/30/22 Jonny Wilcox MD [address] [place] [address] Primary Staff Physician Cardiology 07/16/18 [place] [address] [place] [address] Physician Hematology/Oncology 09/14/21 Davida Restrepo RN [address] [place], [place] [address] Specialty Smoking Pipes Cleaner Hematology/Oncology 09/14/21 Wallcovering Texturer Relationship Specialty Start Date End Date Evans Casas DO [address] [place] [address] PCP - General Family Medicine 01/30/22 Jonny Wilcox MD [address] [place] [address] Primary Staff Physician Cardiology 07/16/18 [place] [address] [place] [address] Physician Hematology/Oncology 09/14/21 Davida Restrepo RN [address] [place], [place] [address]20295 Specialty Smoking Pipes Cleaner Hematology/Oncology 09/14/21 Wallcovering Texturer Relationship Specialty Start Date End Date Evans Casas DO [address] [place] [address] PCP - General Family Medicine 01/30/22 Jonny Wilcox MD [address] [place] [address] Primary Staff Physician Cardiology 07/16/18 [place] [address] [place] [address] Physician Hematology/Oncology 09/14/21 Davida Restrepo RN [address] [place] [address] Specialty Smoking Pipes Cleaner Hematology/Oncology 09/14/21 Wallcovering Texturer Relationship Specialty Start Date End Date Evans Casas DO [address] [place] [address] PCP - General Family Medicine 01/30/22 Jonny Wilcox MD [address] [place] [address] Primary Staff Physician Cardiology 07/16/18 [place] [address] [place] [address] Physician Hematology/Oncology 09/14/21 Davida Restrepo, RN [address] [place], [place] [address] Specialty Smoking Pipes Cleaner Hematology/Oncology 09/14/21 Wallcovering Texturer Relationship Specialty Start Date End Date Evans Casas DO [address] [place] [address] PCP - General Family Medicine 01/30/22 Jonny Wilcox MD [address] [place] [address] Primary Staff Physician Cardiology 07/16/18 [place] [address] [place] [address] Physician Hematology/Oncology 09/14/21 Davida Restrepo, RN [address] [place], [place] [address]34695 Specialty Smoking Pipes Cleaner Hematology/Oncology 09/14/21 Wallcovering Texturer Relationship Specialty Start Date End Date Evans Casas DO [address] [place] [address] PCP - General Family Medicine 01/30/22 Jonny Wilcox MD [address] [place] [address] Primary Staff Physician Cardiology 07/16/18 [place] [address] [place] [address] Physician Hematology/Oncology 09/14/21 Davida Restrepo, RN [address] [place] [address] Specialty Smoking Pipes Cleaner Hematology/Oncology 09/14/21 Wallcovering Texturer Relationship Specialty Start Date End Date Evans Casas DO [address] [place] [address] PCP - General Family Medicine 01/30/22 Jonny Wilcox MD [address] [place] [address] Primary Staff Physician Cardiology 07/16/18 [place] [address] [place] [address] Physician Hematology/Oncology 09/14/21 Davida Restrepo, RN [address] [place] [address] Specialty Smoking Pipes Cleaner Hematology/Oncology 09/14/21 Wallcovering Texturer Relationship Specialty Start Date End Date Evans Casas DO [address] [place] [address] PCP - General Family Medicine 01/30/22 Jonny Wilcox MD [address] [place] [address] Primary Staff Physician Cardiology 07/16/18 [place] [address] [place] [address] Physician Hematology/Oncology 09/14/21 Davida Restrepo RN [address] [place] [address] Specialty Smoking Pipes Cleaner Hematology/Oncology 09/14/21 Wallcovering Texturer Relationship Specialty Start Date End Date Evans Casas DO [address] [facility] [place] [address] PCP - General Family Medicine 01/30/22 Jonny Wilcox MD [address] [place] [address] Primary Staff Physician Cardiology 07/16/18 [place] [address] [place] [address] Physician Hematology/Oncology 09/14/21 Davida Restrepo RN [address] [place] [address] Specialty Smoking Pipes Cleaner Hematology/Oncology 09/14/21 Wallcovering Texturer Relationship Specialty Start Date End Date Evans Casas DO [address] [place] [address] PCP - General Family Medicine 01/30/22 Jonny Wilcox MD [address] [place] [address] Primary Staff Physician Cardiology 07/16/18 [place] [address] [place] [address] Physician Hematology/Oncology 09/14/21 Davida Restrepo, RN [address] [place] [address] Specialty Smoking Pipes Cleaner Hematology/Oncology 09/14/21 Wallcovering Texturer Relationship Specialty Start Date End Date Evans Casas MD [address] [place] [address] PCP - General Family Medicine 11/07/23 Wallcovering Texturer Relationship Specialty Start Date End Date Evans Casas MD [address] [place] [address] PCP - General Family Medicine 11/07/23 Wallcovering Texturer Relationship Specialty Start Date End Date Evans Casas MD [address] [place] [address] PCP - General Family Medicine 11/07/23 Wallcovering Texturer Relationship Specialty Start Date End Date Evans Casas MD [address] [place] [address] PCP - General Family Medicine 11/07/23 Reason [...] FERRIC DERISOMALTOSE, 10 MG Abhyankar, Salvador, MD [address] [place] [address] [place] [address] Delgado Car Claudio [address] [place] [address] Referral ID Status Reason Start Date Expiration Date Visits Re quested Visits Authorized [id number] Closed 04/05/2022 05/09/2022 1 1 Reason Comments Refill Request Specialty Diagnoses / Procedures Referred By Contac t Referred To Contact Diagnoses Iron deficiency anemia secondary to blood loss (chronic) Iron deficiency anemia of Procedures IRON SUCROSE INJECTION PER 1 MG Salvador Calix MD [address] [place] [address] [place] [address] Delgado Car Claudio [address] [place] [address] Referral ID Status Reason Start Date Expiration Date V isits Requested Visits Authorized [id number] Authorized 03/27/2022 04/30/2022 99 99 Reason Onset Date Comments Refill Request 07/03/2022 Reason Comments Anemia Follow up Reason Comments Orders Reason Comments Established Patient Reason Comments Appointment Reason Comments Lab Orders Reason Comments Primary hypercoagulable state (HCC) Foll ow up Reason Comments Appointment Rescheduled Specialty Diagnoses / Procedures Referred By [facility] Referred To Contact Diagnoses Iron deficiency anemia of Iron deficiency anemia secondary to blood loss (chronic) Procedures IRON SUCROSE INJECTION PER 1 MG Salvador Calix MD [address] [place] [address] [place] [address] Delgado Car Claudio [address] [place] [address] Referral ID Status Reason Start Date Expiration Date V isits Requested Visits Authorized [id number] Authorized 11/05/2023 05/04/2024 0 3 Reason Onset [...] BE BASED ON THE PRIMARY CLINICAL RECORDS. [facility]. provides no warranty or guarantee of the accuracy or completeness of information in this document.
--- NOTE | 2024-05-10 08:21 | US_ITS ---
[address] [address] Patient Name: MADHU RENDON MRN: [id number] date: 1985 Sex: F Assigned Patient Location: [facility] Current Patient Location: Accession/Order Number: [id number] Exam Date: 05/10/2024 08:30 Report Date: 05/10/2024 09:26 At the request of: MYA MASSEY Procedure: US OB limited EXAM: US OB limited HISTORY: confirm demise COMPARISON: Ultrasound OB transvaginal 04/04/2024 TECHNIQUE: Transabdominal ultrasound FINDINGS: pole: 6.3 cm, 12 weeks 5 days Heart rate: Absent Gestational sac: Present but irregular. GA by LMP: 14 weeks 4 days KLAUDIA by LMP: 11/04/2024 GA by US: 12 weeks 5 days KLADUIA by US: 11/17/2024 US/US OB limited IMPRESSION: 1. Findings compatible with demise. Electronically authenticated by: HUMERA KIM Date: 05/10/2024 09:26
[2024-05-10 08:54] LABS: Basophils Percent Auto 0.2 % (0.2-2.0); Eosinophils Absolute Auto 0.1 10^3/uL (0.0-0.7); Eosinophils Percent Auto 0.7 % (0.9-7.0); Hematocrit 35.6 % (36.0-48.0); Hemoglobin 12.3 g/dL (12.0-16.0); Immature Granulocytes Abs Auto 0.04 10^3/uL (0.00-0.03); Immature Granulocytes Pct Auto 0.4 % (0.0-0.5); Lymphocytes Absolute Auto 2.5 10^3/uL (1.2-3.8); Lymphocytes Percent Auto 26.1 % (20.5-60.0); Mean Corpuscular HGB Conc 34.6 g/dL (29.9-35.2); Mean Corpuscular Volume 89.7 fL (81.0-99.0); Mean Platelet Volume 9.9 fL (9.5-13.5); Monocytes Absolute Auto 0.6 10^3/uL (0.3-0.8); Neutrophils Absolute Auto 6.3 10^3/uL (1.4-6.5); Neutrophils Percent Auto 66.6 % (43.0-75.0); Platelet Count 315 10^3/uL (150-450); Red Blood Count 3.97 10^6/uL (4.20-5.40); White Blood Count 9.4 10^3/uL (4.0-11.0)
[2024-05-10 09:32] LABS: INR 0.97; Partial Thromboplastin Time 28.5 sec (22.3-36.2); Prothrombin Time 10.3 sec (9.0-11.6)
[2024-05-10 09:35] LABS: Fibrinogen 391 mg/dL (200-400)
[2024-05-10] MEDS: 0.9 % SODIUM CHLORIDE 1,000 ML 125 ML IV (09:44)
[2024-05-10] MEDS: MISOPROSTOL 100 MCG TABLET 400 MCG VAGINAL ×2 (09:48→12:53)
[2024-05-10] MEDS: RHO(D) IMMUNE GLOBULIN 1,500 UNIT SYRINGE 1500 UNIT IV (10:54)
[2024-05-10] MEDS: AMPICILLIN SODIUM 2,000 MG in 0.9 % SODIUM CHLORIDE 100 ML 200 MG IV (13:37)
--- NOTE | 2024-05-10 14:10 | OP_ITS ---
OPERATION DATE:? ?05/10/2024 ? PRIMARY DIAGNOSES:? 1.? loss at 14 weeks . 2.? History of blood clot disorder, currently on Lovenox. 3.? Second trimester loss. ? PROCEDURE:? Patient was sent to Labor and Delivery.? Patient had 400 mg of Cytotec placed.? Patient received up to 800 mg.? Patient subsequently dilated and then delivered the 14 week fetus.? Placenta was also removed in its entirety.? Ultrasound was requested to make sure all products were removed.? Patient had no lacerations.? Patient tolerated everything well.? Sponge counts correct x2.? Patient was then subsequently watched overnight for bleeding, due to history of Lovenox use.? Patient subsequently sent home the next morning. PERLA
[2024-05-10] MEDS: KETOROLAC TROMETHAMINE 30 MG/ML VIAL IVP (14:30)
--- NOTE | 2024-05-10 14:34 | US_ITS ---
[address] [address] Patient Name: MADHU RENDON MRN: [id number] date: 1985 Sex: F Assigned Patient Location: [facility] Current Patient Location: [facility] Accession/Order Number: [id number] Exam Date: 05/10/2024 14:36 Report Date: 05/10/2024 16:02 At the request of: MYA MASSEY Procedure: US pelvis EXAMINATION: US pelvis HISTORY: post delivery for demise induction COMPARISON: No relevant comparison available. TECHNIQUE: Transabdominal and/or transvaginal sonographic examination was performed as indicated by examination type. FINDINGS: UTERUS: No retained products of conception. US/US pelvis IMPRESSION: 1. No retained products of conception. Electronically authenticated by: HUMERA KIM Date: 05/10/2024 16:02
[2024-05-10] MEDS: OXYTOCIN/0.9 % SODIUM CHLORIDE 20 UNITS/1,000 ML PLAST..BAG 125 UNIT IV (14:37)
[2024-05-10] MEDS: ACETAMINOPHEN 500 MG TABLET 1000 MG PO (15:18)
[2024-05-10] MEDS: AMPICILLIN SODIUM 1,000 MG in 0.9 % SODIUM CHLORIDE 50 ML 100 MG IV (18:12)
[2024-05-10] MEDS: DOXYCYCLINE MONOHYDRATE 100 MG CAPSULE PO (21:31)
[2024-05-10] MEDS: METFORMIN HCL 500 MG TAB.ER.24H PO (21:32)
[2024-05-10] MEDS: FLUCONAZOLE 150 MG TABLET PO (22:11)
[2024-05-11 04:07] VITALS: BP 124/67; PULSE 75; TEMP 36.5
[2024-05-11] MEDS: LEVOTHYROXINE SODIUM 25 MCG TABLET PO (06:26)
[2024-05-11 06:33] VITALS: TEMP 36.8
[2024-05-11 07:08] LABS: Homocyst(e)ine 5.8 umol/L (0.0-14.5); Immunoglobulin G, Qn 913 mg/dL (586-1602); Immunoglobulin M, Q 177 mg/dL (26-217)
[2024-05-11 09:02] VITALS: TEMP 36.6
[2024-05-11 09:03] VITALS: BP 117/65; PULSE 87
[2024-05-11] MEDS: DOXYCYCLINE MONOHYDRATE 100 MG CAPSULE PO (09:39)
--- NOTE | 2024-05-11 14:48 | PM.OBPRCVD ---
Procedure Intrapartal events: None Induction method: per pitocin protocol Delivery augmentation: rupture of membranes and pitocin Delivery monitor: external FHT and external uterine Route of delivery: Episiotomy Description: midline L&D Laceration Description: perineal - 2nd degree Delivery repair: Vicryl Estimated blood loss (mL): 400 Anesthesia type: None Disposition: floor Delivery date: 05/11/24 Gender: female presentation: vertex Placental delivery description: Spontaneous cord description: 3 Vessels and Nuchal Cord
[2024-05-12 14:08] LABS: Antithrombin Activity 141 % (75-135); Protein C-Functional 166 % (73-180); Protein S, Free 112 % (61-136); Protein S, Total 96 % (60-150)
== END 2024-05-11 09:50 | disposition home or self-care (01) | DRG 564 ==
PROVIDERS: Admitting Provider Obstetrics & Gynecology; PCP Family Medicine; Visit Provider Obstetrics & Gynecology
DX: O02.1 Missed abortion (principal); Z86.73 Personal history of transient ischemic attack (TIA), and cerebral infarction without residual deficits; E07.9 Disorder of thyroid, unspecified; O99.282 Endocrine, nutritional and metabolic diseases complicating pregnancy, second trimester; Z3A.14 14 weeks gestation of pregnancy
CPT/HCPCS: 36415; 76815; 76856; 81241; 82784; 83090; 85025; 85300; 85303; 85305; 85306; 85384; 85610; 85730; 86644; 86645; 86747; 86777; 86778; 86850; 86900; 86901; 88307; J0290; J1885; J2791

== ENCOUNTER 2024-09-11 08:34 | Outpatient (OUT) | payer MEDICAID, SELFPAY ==
--- NOTE | 2024-09-11 08:37 | US_ITS ---
The [address] [address] Patient Name: MADHU RENDON MRN: [id number] date: 1985 Sex: F Assigned Patient Location: Current Patient Location: Accession/Order Number: [id number] Exam Date: 09/11/2024 11:34 Report Date: 09/11/2024 11:36 At the request of: MYA MASSEY DO Procedure: US OB transvaginal US OB transvaginal 09/11/2024 9:10 AM SIGNS AND SYMPTOMS: ^History Of Miscarriage COMPARISON: None. TECHNIQUE: Limited pelvic ultrasound using transvesical sonography. FINDINGS: An early intrauterine is identified. The visualized pole has an estimated gestational age of 6 weeks and 3 days. A heart rate is identified at 100 and. A normal amount of amniotic fluid is present. There is no evidence for placenta previa or subchorionic hemorrhage. Pelvic survey reveals no gross abnormalities. The suspected corpus luteum cyst is noted in the left ovary measuring up to 1.5 cm in greatest dimension. The cervix measures 3.5 cm in length. US/US OB transvaginal IMPRESSION: Single live IUP with an estimated gestational age of 6 weeks and 3 days and normal heart rate. Impression dictated by: Baljinder Montano M.D. 09/11/2024 11:36 AM Dictation Location: [place] [address] Electronically authenticated by: [id number] Y Date: 09/11/2024 11:36
== END 2024-09-11 08:35 | disposition home or self-care (01) ==
LOC: US 08:35
PROVIDERS: PCP Family Medicine; Visit Provider Obstetrics & Gynecology
DX: Z34.91 Encounter for supervision of normal pregnancy, unspecified, first trimester (principal); Z87.59 Personal history of other complications of pregnancy, childbirth and the puerperium; Z3A.01 Less than 8 weeks gestation of pregnancy
CPT/HCPCS: 76817

== ENCOUNTER 2024-10-06 09:44 | Outpatient (OUT) | payer MEDICAID, SELFPAY ==
--- OUTSIDE RECORDS SUMMARY | 2024-10-02 13:00 | XMS_ITS | Encounter Summary ---
Author Organization [facility] Address [address] [facility] [place] [address] Care Team Providers Care First Aid Nurse Name Role Phone Evans Casas MD Primary Care Provider [phone] Reason for Visit * Reason Comments Amenorrhea Encounter Details Date Type Department Care Team (Late st Contact Info) Description 10/02/2024 1:00 PM EDT Initial [facility] [address] [place] [address] [place] [address] GA: 9w3d Social History Tobacco Use Types Packs/Day Years Used Date Smoking Tobacco: Never Smokeless Tobacco: Never Alcohol Use Standard Drinks/Week Comments Never 0 (1 standard drink = 0.6 oz pur e alcohol) Estimated Date of Delivery Comme nts Yes 05/04/2025 Based on last me nstrual period of 07/28/2024 Sex and Gender Information Value Date Recorded Sex Assigned at Not on file Legal Sex Female 11:19 PM EDT Gender Identity Not on file Sexual Orientation Not on file documented as of this encounter Last Filed Vital Signs Vital Sign Reading Time Taken Comments Blood Pressure 124/78 10/02/2024 2:10 PM EDT Pulse - - Temperature - - Respiratory Rate - - Oxygen Saturation - - Inhaled Oxygen Concentration - - Weight 95.3 kg (210 lb) 10/02/2024 2:10 PM EDT Height - - Body Mass Index 33.89 11/19/2023 1:48 PM EDT documented in this encounter Progress Notes * Lala Hess MA - 10/02/2024 1:00 PM EDT Reason for Appointment: Patient ID: Sanna Bone is a 38 y.o. female who presents for Amenorrhea Patient presents today for a Nurse OB Intake appointment. Patient is 9w3d with a Estimated Date of Delivery: 05/04/25 OB History Para Term AB Living 7 3 3 3 3 SAB IAB Ectopic Multiple Live Births 3 3 # Outcome Date GA Lbr Milo/2nd Weight Sex Type Anes PTL Lv 7 Current 6 SAB 05/06/24 14w0d 5 Term 01/08/20 39w0d 8 lb 2 oz M Vag-Spont Comments: 1st degree tear 4 SAB 11/03/18 SAB 3 Term 07/01/14 39w0d 7 lb 1 oz F Vag-Spont N [place] Comments: MATERNAL HEMORRHAGE 2 SAB 03/29/13 16w5d M SAB Comments: SUBCHORIONIC HEMORRHAGE @13W 1 Term 11/27/07 40w0d 8 lb 1 oz M Vag-Spont EPI N [place] Obstetric Comments Last pap smear date 02/14/2022 negative STD 02/14/22 - negative Current Medications: has a current medication list which includes the following prescription(s): azithromycin, lovenox, levothyroxine, metformin xr, multi-vitamin, and progesterone. 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 Coagulation defect, unspecified 02/05/2019 Cold intolerance 11/15/2023 Deficiency of other [...] Less than 8 weeks gestation of 06/05/2019 skilled nursing (current) use of 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/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 02/05/2019 Migraine without aura and without status migrainosus, not intractable (CMS/HCC) 09/12/2017 Morbid obesity (CMS/HCC) 11/15/2023 Muscle fasciculation 08/19/2021 Nasal polyps 11/15/2023 [...] infections 01/16/2020 Pre-diabetes 11/15/2023 Primary hypercoagulable state (CMS/HCC) 08/01/2022 Pruritus, unspecified 01/02/2020 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[facility]) 06/12/2023 Raised antibody titer 09/25/2017 Right lower quadrant pain 11/15/2023 Right otitis externa 11/15/2023 Salivary gland swelling 11/15/2023 Single live 01/15/2020 Snoring 11/15/2023 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) 12/30/2019 Suspected severe acute respiratory syndrome coronavirus 2 (SARS-CoV-2) infection 06/12/2023 SVT (supraventricular tachycardia) ([facility]) 08/26/2019 Syncope and collapse 06/03/2018 Other bacterial infections of unspecified site 06/27/2019 Thrombocytopenia, unspecified ([facility]) 11/20/2019 Hypoglycemia 06/12/2023 Unspecified condition associated with female genital organs and menstrual cycle 05/09/2019 Unspecified ovarian cyst, right side 02/06/2019 Urinary tract infection 10/16/2019 Referred otalgia of right ear 11/19/2023 LPRD (laryngopharyngeal reflux disease) 11/19/2023 Resolved Ambulatory Problems Diagnosis Date Noted No Resolved Ambulatory Problems Past Medical History: Diagnosis Date AMA (advanced maternal age) multigravida 35+ Anemia Antiphospholipid syndrome ([facility]) Gestational diabetes Heartburn Hypothyroid ([facility]) Stroke ([facility]) Family History Problem Relation Name Age of [...] drainage of cyst WISDOM TOOTH EXTRACTION 2007 [place] teeth Allergies Allergen Reactions Ciprofloxacin GI intolerance Ciprofloxacin-Fluocinolone Pf Other Reaction(s): Other: See Comments Dizziness, weakness sweating Lactose Other Reaction(s): GI Disturbance, GI Upset Diarrhea Diarrhea Lactose Intolerance (Gi) Other Reaction(s): Illness Octacosanol Other Reaction(s): Other (See Comments) Other Other seasonal Vitals: Estimated body mass index is 33.89 kg/m?? as calculated from the following: Height as of 11/19/23: 5' 6 . Weight as of this encounter: 210 lb. BP: 124/78 Patient's last menstrual period was 07/28/2024. Assessment/Plan Diagnoses and all orders for this visit: Amenorrhea Missed menses - Type and screen; Future - ABO/Rh; Future - CBC and differential - Hemoglobin A1c - RPR - Rubella antibody, IgG - Hepatitis B surface antigen - Hepatitis C antibody - HIV-1 and HIV-2 antibodies - Urine culture - POCT , urine manually resulted - [...] trimester - Rapid drug screen, urine; Future Thyroid disease (CMS/HCC) - TSH Nurse Note: Patient desires to have Julian billion to one. Pt was advised to make sure the labs are done together or she will be sent away. PVU Patient is on Levenox, metformin and Synthroid daily. Patient was given TSH order to have drawn along w/her set of labs. Pt is aware TSH will be drawn Q4 until delivery. OB Intake: Patient presents today for first OB visit. Patients history has been reviewed in great detail including any potential risks. Patient signed consent forms and patient desires testing in both trimesters. Patient currently has no complaints and has been advised to drink 6-8 glasses of water a day, eatno raw or undercooked meat, and stay away from [facility]. Patient has also been advised to not change litter boxes and eat 6 small meals a day. Patient has been consulted regarding the do's and don'ts ofpregnancy. Patient was given labs and all questions and concerns were answered. Follow Up: Patient is to return in 4 weeks for routine OB appointment. Follow Up: Patient is to have labs drawn at directed and return to office for initial OB appointment with provider. Patient may call office as needed with any concerns or questions. Nurse Visit Completed by: Lala Hess MA documented in this encounter Plan of Treatment Upcoming Encounters Date Type Department Care Team (Late st Contact Info) Description 10/20/2024 1:00 PM EDT Ancillary Procedure [facility] [address] [place] [address] [place] [phone] 10/27/2024 9:20 AM EDT Office Visit [facility] OB [address] [place] [address] [place] [phone] Wilton Herrmann, [address] [place] [address] 10/30/2024 10:40 AM EDT Routine [facility] [address] [place] [id number] Wilton Herrmann, [address] [place], [place] [id number] Scheduled Orders Name Type Priority Associated Diagnoses Orde r Schedule Type and screen Lab Routine Missed menses , unspecified gestational age Expected: 10/02/2024 (Approximate), Expires: 10/02/2025 ABO/Rh Lab Routine Missed menses , unspecified gestational age Expected: 10/02/2024 (Approximate), Expires: 10/02/2025 CBC and differential Lab Routine Missed menses , unspecified gestational age Ordered: 10/02/2024 Hemoglobin A1c Lab Routine Missed menses , unspecified gestational age Ordered: 10/02/2024 RPR Lab Routine Missed menses , unspecified gestational age Ordered: 10/02/2024 Rubella antibody, IgG Lab Routine Missed menses , unspecified gestational age Ordered: 10/02/2024 Hepatitis B surface antigen Lab Routine Missed menses , unspecified gestational age Ordered: 10/02/2024 Hepatitis C antibody Lab Routine Missed menses , unspecified gestational age Ordered: 10/02/2024 HIV-1 and HIV-2 antibodies Lab Routine Missed menses , unspecified gestational age Ordered: 10/02/2024 Urine culture Microbiology Routine Missed menses Ordered: 10/02/2024 Rapid drug screen, urine Lab Routine , unspecified gestational age Encounter for supervision of normal first in first trimester Expected: 10/02/2024 (Approximate), Expires: 10/02/2025 TSH Lab Routine Thyroid disease ([facility]) Ordered: 10/02/2024 documented as of this encounter Procedures Procedure Name Priority Date/Time Associated Diagnosis Comments POCT , URINE Routine 10/02/2024 2:10 PM EDT Missed menses POCT URINALYSIS DIPSTICK Routine 10/02/2024 2:10 PM EDT Missed menses documented in this encounter Results * POCT urinalysis dipstick manually resulted (10/02/2024 2:10 PM EDT) Color, UA Yellow Clarity, UA Clear Glucose, UA Negative Negative - 2000(110) ++++ mg/dL Bilirubin, UA Negative Negative - 4(70) +++ mg/dL Ketones, UA Negative Negative - 160(16) ++++ mg/dL Spec Grav, UA 1.025 1 - 1.03 Blood, UA Negative Negative - 50 Max/mcL pH, UA 6.0 5 - 9 Protein, UA Negative Negative - 2000(20) ++++ mg/dL Urobilinogen, UA 0.2 0.2 - 12 mg/dL Leukocytes, UA Negative Negative - 500+++ John/mcL Nitrite, UA Negative Negative - Positive Urine 10/02/2024 2:10 PM EDT Wilton Montez DO POINT OF CARE TEST ENTER/EDIT OR DERABLES Final Result * (ABNORMAL) POCT , urine manually resulted (10/02/2024 2:10 PM EDT) Preg Test, Ur Positive Negative Urine 10/02/2024 2:10 PM EDT Wilton Montez DO POINT OF CARE TEST ENTER/EDIT OR DERABLES Final Result documented in this encounter Visit Diagnoses Diagnosis Amenorrhea Absence of menstruation Missed menses , unspecified gestational age Encounter for supervision of normal first in first trimester Thyroid disease (CMS/HCC) Unspecified disorder of thyroid documented in this encounter Care Teams First Aid Nurse Relationship Specialty Start Date End Date Evans Casas MD [address] [facility] [place] [address] PCP - General Family Medicine 11/07/23 documented as of this encounter
--- OUTSIDE RECORDS SUMMARY | 2024-10-06 09:49 | XMS_ITS | Clinical Summary ---
Author Organization [facility] Address [address] [place] [address] Care Team Providers Care Api Architect Name Role Phone Evans Casas DO Primary Care Provider Allergies Active Allergy Reactions Criticality Noted Date Comments Ciprofloxacin Other (See Comments) 06/19/2019 Ciprofloxacin-Fluocinolo ne Pf Other (See Comments) 05/19/2019 Dizziness, weakness sweating Environmental/Seasonal Other (See Comments) 09/2020 Milk-Related Compounds Other (See Comments) Low Crampy and gassy Diarrhea Other reaction(s): GI Upset Crampy and gassy Medications levothyroxine (SYNTHROID) 25 MCG tablet Take 1 tablet by mouth Daily Active Vit-Fe Fumarate-FA ( PO) Take 1 tablet by mouth 10/31/2018 Active enoxaparin (LOVENOX) 40 MG/0.4ML injection Inject 0.4 mLs into the skin daily 16 mL 1 02/20/2020 Active metFORMIN (GLUCOPHAGE-XR) 500 MG extended release tablet Take 1 tablet by mouth daily (with breakfast) 03/26/2022 Active Active Problems Problem Noted Date Diagnosed Date Acute on chronic vesicular eczema of hands and f eet 12/11/2023 Blood pressure elevated without history of HTN 0 12/11/2023 Dry mouth 12/11/2023 Environmental allergies 12/11/2023 H/O: hypothyroidism 12/11/2023 History of asthma 12/11/2023 History of gestational diabetes 12/11/2023 History of kidney stones 12/11/2023 Hx of iron deficiency anemia 12/11/2023 Immunization not carried out because of patient decision 12/11/2023 Morbid obesity 12/11/2023 Non-smoker 12/11/2023 NEETA (obstructive sleep apnea) 12/11/2023 Right otitis externa 12/11/2023 Abdominal pain 06/12/2023 Acute bronchitis due to infection 06/12/2023 Anxiety 06/12/2023 Dysfunction of eustachian tube 06/12/2023 Dyspnea 06/12/2023 Hematochezia 06/12/2023 History of severe acute resp iratory syndrome coronavirus 2 (SARS-CoV-2) disease 06/12/2023 Hypoglycemia 06/12/2023 Inhalation injury 06/12/2023 problem 06/12/2023 Psychogenic hyperventilation 06/12/2023 Suspected severe acute respi ratory syndrome coronavirus 2 (SARS-CoV-2) infection 06/12/2023 Primary hypercoagulable state 08/01/2022 Gestational diabetes mellitu s in , unspecified control 01/26/2022 Genitourinary symptoms 08/19/2021 Muscle fasciculation 08/19/2021 TIA (transient ischemic attack) 06/16/2020 Cerebrovascular accident (CV A) due to stenosis of middle cerebral artery 02/22/2020 Anticoagulant long-term use 02/22/2020 Acute posthemorrhagic anemia 01/16/2020 39 weeks gestation of 01/16/2020 Anemia complicating childbirth 01/16/2020 Endocrine, nutritional and m etabolic diseases complicating childbirth 01/16/2020 First degree perineal laceration during delivery 01/16/2020 Other immediate hemorrhage 01/16/2020 Personal history of transien t ischemic attack (TIA), and cerebral infarction without residual deficits 01/16/2020 Personal history of urinary (tract) infections 0 01/16/2020 Single live 01/15/2020 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 01/08/2020 38 weeks gestation of 01/07/2020 Pruritus, unspecified 01/02/2020 37 weeks gestation of 01/02/2020 36 weeks gestation of 12/30/2019 Other speech and language de ficits following cerebral infarction 12/30/2019 Other diseases of the blood and blood-forming organs and certain disorders involving the immune mechanism complicating childbirth 12/23/2019 35 weeks gestation of 12/22/2019 34 weeks gestation of 12/16/2019 33 weeks gestation of 12/10/2019 32 weeks gestation of 11/28/2019 Thrombocytopenia, unspecified 11/20/2019 Other general symptoms and signs 10/28/2019 Urinary tract infection, site not specified 09/28 Palpitations 08/26/2019 SVT (supraventricular tachycardia) 08/26/2019 Antiphospholipid antibody syndrome 07/07/2019 Other bacterial infections of unspecified site 0 06/27/2019 Less than 8 weeks gestation of 020 Encounter for supervision of normal , unspecified, first trimester 05/29/2019 Hyponatremia 05/16/2019 Cerebral infarction, unspecified 05/16/2019 Paresthesia of skin 05/16/2019 Deficiency of other specified B group vitamins 0 05/16/2019 Hypothyroidism, unspecified 05/16/2019 Unspecified condition associ ated with female genital organs and menstrual cycle 05/09/2019 Vomiting of , unspecified 05/05/2019 Other specified noninflammatory disorders of vag jaxson 02/21/2019 Frequency of micturition 02/19/2019 Unspecified ovarian cyst, right side 02/06/2019 Coagulation defect, unspecified 02/05/2019 Cervicalgia 02/05/2019 [facility] (current) use of 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/antip latelets 02/05/2019 Dizziness and giddiness 02/05/2019 Other acute postprocedural pain 02/03/2019 Pelvic and perineal pain 02/01/2019 Syncope and collapse 06/03/2018 Anticardiolipin antibody positive 09/25/2017 Migraine without aura and wi thout status migrainosus, not intractable 09/12/2017 Antiphospholipid antibody positive 09/10/2017 Pain in joint 12/29/2016 Fatigue 12/29/2016 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 Resolved Problems Problem Noted Date Diagnosed Date Resolved Date Cough 06/12/2023 07/12/2023 Social History Tobacco Use Types Packs/Day Years Used Date Smoking Tobacco: Never Smokeless Tobacco: Never Tobacco Cessation:Counseling Given: Not Answered Alcohol Use Standard Drinks/Week Comments Not Currently 0 (1 standard drink = 0.6 oz pur e alcohol) occasionally Comments No Sex and Gender Information Value Date Recorded Sex Assigned at Not on file Legal Sex Female 2:04 PM EDT Gender Identity Not on file Sexual Orientation Not on file Last Filed Vital Signs Vital Sign Reading Time Taken Comments Blood Pressure 130/82 07/01/2024 4:11 PM EST Pulse 77 07/01/2024 3:52 PM EST Temperature 36.2 C (97.2 F) 02/09/2022 11:22 AM EDT Respiratory Rate 16 02/09/2022 11:22 AM EDT Oxygen Saturation 98% 10/04/2020 2:01 PM EDT Inhaled Oxygen Concentration - - Weight 97.5 kg (215 lb) 07/01/2024 3:52 PM EST Height 167.6 cm (5' 6 ) 02/09/2022 11:22 AM EDT Body Mass Index 34.7 02/09/2022 11:22 AM EDT Plan of Treatment Upcoming Encounters Date Type Department Care Team (Late st Contact Info) Description 11/04/2024 2:30 PM EDT Office Visit [facility] [address] [place] [address] [place] [id number] Peng Osorio MD [address] [place] [address] [place] [id number] [facility] Health Maintenance Due Date Last Done Comments Depression Screen 1997 Varicella vaccine (1 of 2 - 13+ 2-dose series) 1998 Hepatitis C screen 10/22/2003 Hepatitis B vaccine (1 of 3 - 19+ 3-dose series) 2004 Pap smear 2006 Cervical cancer screen 10/22/2015 HPV (without or with Pap) 10/22/2015 COVID-19 Vaccine ( - 2023-2 5 season) 2023 DTaP/Tdap/Td vaccine (2 - Td or Tdap) 07/03/2024 07/03/2014 Flu vaccine (Season Ended) 2024 HIV screen Completed 12/29/2016 HPV vaccine Aged Out No longer eligi ble based on patient's age to complete this topic Hepatitis A vaccine Aged Out No longe r eligible based on patient's age to complete this topic Hib vaccine Aged Out No longer eligi ble based on patient's age to complete this topic Meningococcal (ACWY) vaccine Aged Out No longer eligible based on patient's age to complete this topic Meningococcal B vaccine Aged Out No l onger eligible based on patient's age to complete this topic Pneumococcal 0-49 years Vaccine Aged Out No longer eligible based on patient's age to complete this topic Polio vaccine Aged Out No longer elig ible based on patient's age to complete this topic Procedures Procedure Name Priority Date/Time Associated Diagnosis Comments HIV-1,-2 W/REFLEX TO HIV-1 WESTERN BLOT Routine 12/29/2016 11:49 AM EDT Arthralgia, unspecified joint Fatigue, unspecified type Sensation disorder from Last 3 Months or Most Recently Relevant to Health Maintenance Results * Hiv-1,-2 W/Reflex To Hiv-1 Western Blot (12/29/2016 11:49 AM EDT) HIV-1/HIV-2 Ab Negative Negative 12/31/2016 12:03 AM EDT [facility] Comment: Based on the non-reactive anti-HIV (BRENDEN) screen, the HIV Western blot is not indicated and therefore not performed. INTERPRETIVE INFORMATION: HIV-1,-2 w/Reflex to HIV-1 Western Blot This assay should not be used for blood donor screening, associated re-entry protocols, or for screening Human Cells, Tissues and Cellular and Tissue-Based Products (HCT/P). Performed by [facility], [address] [place] [id number] [email or web address] Zhang Bledsoe MD - Lab. Director BLOOD SPECIMEN / Unknown 12/29/2016 11:49 AM EDT 12/29/2016 1:50 PM EDT us Gege Monroe MD HEMATOLOGY ORDERABLES Final Resu lt [facility] [address] [place] [address], [facility] [phone] from Last 3 Months or Most Recently Relevant to Health Maintenance Insurance [facility] MEDICAID Care Teams Api Architect Relationship Specialty Start Date End Date Evans Casas DO [address] [place] [address] PCP - General Family Medicine 10/04/20
--- OUTSIDE RECORDS SUMMARY | 2024-10-06 09:49 | XMS_ITS | Clinical Summary ---
Author Organization [facility] Address [address] [place] [address] Care Team Providers Care Stone And Plate Preparer Apprentice Name Role Phone Jonny Wilcox MD Unavailable [phone] Cosmo Elliott MD Unavailable [phone] Davida Restrepo RN Unavailable [phone] Evans Casas DO Primary Care Provider [phone] Allergies Active Allergy Reactions Criticality Noted Date Comments Ciprofloxacin Other: See Comments,Unknown 05/19/2019 Dizziness, weakness sweating Ciprofloxacin-Fluocinolo ne Other: See Comments 05/19/2019 Dizziness, weakness sweating Lactalbumin Unknown,GI Upset Low 05/25/2017 Crampy and gassy Lactose GI Upset 09/10/2017 Diarrhea Milk Other: See Comments Low 05/25/2017 Crampy and gassy Diarrhea Other reaction(s): GI Upset Crampy and gassy Milk Containing Products (Dairy) Other: See Comments Low 05/25/2017 Crampy and gassy Diarrhea Other reaction(s): GI Upset Crampy and gassy Seasonal Allergies GI Upset,Other: See Comments 05/05/2020 Medications multivitamin tablet Take 1 tablet by mouth once daily. Active metFORMIN ER (GLUCOPHAGE XR) 500 mg 24 hr tablet 03/26/20 22 Active famotidine (PEPCID) 20 mg tablet Take 1 tablet by mouth once daily. To take prior to infusion 1 tablet 11/29/19 24 Active enoxaparin (LOVENOX) 40 mg/0.4 mLIndications:Prim sherrie hypercoagulable state (HCC),CVA, old, speech/language deficit,Cerebral hyponatremia INJECT 1 SYRINGE SUBCUTANEOUSLY EVERY 24 HOURS 90 mL 07/26/19 25 Active Active Problems Problem Noted Date Diagnosed Date Antiphospholipid antibody syndrome 05/28/2024 Vitamin D deficiency 05/28/2024 Primary hypercoagulable state 08/01/2022 CVA, old, speech/language deficit 08/01/2022 Iron deficiency anemia secondary to blood loss ( chronic) 03/27/2022 Iron deficiency anemia of 03/27/2022 Anti-cardiolipin antibody positive 09/25/2017 Migraine with aura and witho ut status migrainosus, not intractable 09/12/2017 Antiphospholipid antibody positive 09/10/2017 Fatigue 12/29/2016 Pain in joint 12/29/2016 Encounters Date Type Department Care Team Description 09/02/2024 Telephone Hematology/Oncology [address] [place] [address] Rachael Johnson RN Patient Update 08/26/2024 Telephone Hematology/Oncology [address] [place] [address] Salvador Dos Sanots MD Lab Orders 07/25/2024 Refill Hematology/Oncology [address] [place] [address] Salvador Dos Santos MD Refill Request from Last 3 Months Immunizations Immunization Administration Dates Next Due tetanus diphtheria pertussis (Tdap) vaccine, age 7+ yr (ADACEL, BOOSTRIX) 07/03/2014 Family History * Patient is adopted Medical History Relation Comments Other Daughter sacral dimple, f rbrous tisse of tail bone Diabetes Father Type 2 Stroke Father Multiple Sclerosis Maternal Aunt Heart Maternal Grandfather Other Mother Spinabifida Diabetes Paternal Grandfather type 2 Diabetes Paternal Grandmother type 2 Diabetes Sister type 2 Relation Status Comments Daughter Alive Father Alive Maternal Aunt Maternal Grandfather Mother Alive Paternal Grandfather Paternal Grandmother Sister Son Alive Social History Tobacco Use Types Packs/Day Years Used Date Smoking Tobacco: Never Smokeless Tobacco: Never Tobacco Cessation:Counseling Given: Yes Alcohol Use Standard Drinks/Week Comments No 0 (1 standard drink = 0.6 oz pur e alcohol) PHQ-2 Answer Date Recorded PHQ-2 score 0 01/02/2024 Area Deprivation Index Answer Date Rayo rded National Score (1-100), lower number is lower ri sk 58 09/28/2022 State Score (1-10), lower number is lower risk 4 09/28/2022 Data from: https://www.neighborhoodatlas.medicine.[facility].edu/. 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 Not on file Not on file Not on file Last Filed Vital Signs Vital Sign Reading Time Taken Comments Blood Pressure 123/83 05/28/2024 1:07 PM EST Pulse 72 05/28/2024 1:07 PM EST Temperature 36.4 C (97.6 F) 05/28/2024 1:07 PM EST Respiratory Rate 16 05/28/2024 1:07 PM EST Oxygen Saturation 99% 05/28/2024 1:07 PM EST Inhaled Oxygen Concentration - - Weight 98.5 kg (217 lb 2.5 oz) 05/28/2024 1:07 P M EST Height 167.7 cm (5' 6.02 ) 05/28/2024 1:07 PM ES T Body Mass Index 35.02 05/28/2024 1:07 PM EST Plan of Treatment Upcoming Encounters Date Type Department Care Team (Latest Contact Info) Description 10/10/2024 10:15 AM EDT Office Visit [facility] [address] [place] [address] [place] [address] labs - patient prefers to come same day 10/10/2024 10:40 AM EDT Visit (SP) Office Hematology/Oncology [address] [facility] [place] [address] Salvador Dos Santos MD [address] [place] [address] 3 month follow up Health Maintenance Due Date Last Done Comments Anxiety Screening 10/22/2003 Depression Screening 10/22/2003 HIV Screening 10/22/2003 Hepatitis C Screening 10/22/2003 Hepatitis B Vaccine (1 of 3 - 19+ 3-dose series) 2004 Cervical Cancer Screening 12/04/2020 12/04/2017 Covid-19 Vaccine (1 - 2023-2 5 season) 2023 DTaP,Tdap,Td Vaccine (2 - Td or Tdap) 07/03/2024 07/03/2014 Influenza Vaccine (Season Ended) 2024 03/05/2018 (Patient/Parent/Guardian Counseled and Declines) Insurance [employer] MEDICA[place] Care Teams Stone And Plate Preparer Apprentice Relationship Specialty Start Date End Date Evans Casas DO [address] [facility] [place] [address] PCP - General Family Medicine 01/30/22 Jonny Wilcox MD [address] [place] [address] Primary Staff Physician Cardiology 07/16/18 [place] [address] [place] [address] Physician Hematology/Oncology 09/14/21 Davida Restrepo, RN [address] [place] [address] Specialty Sales Record Clerk Hematology/Oncology 09/14/21
--- OUTSIDE RECORDS SUMMARY | 2024-10-06 09:50 | XMS_ITS | Encounter Summary ---
Author Organization [facility] Address [address] [place] [address] Care Team Providers Care Architect Marine Name Role Phone Evans Casas MD Primary Care Provider [phone] Encounter Details Date Type Department Care Team (Late Contact Info) Description 05/10/2024 Abstract [facility] OB [address] [place], [place] [address] [address] Rosi Murray LPN Social History Tobacco Use Types Packs/Day Years Used Date Smoking Tobacco: Never Smokeless Tobacco: Never Alcohol Use Standard Drinks/Week Comments Never 0 (1 standard drink = 0.6 oz pur e alcohol) Comments Yes Sex and Gender Information Value Date Recorded Sex Assigned at Not on file Legal Sex Female 11:19 PM EDT Gender Identity Not on file Sexual Orientation Not on file documented as of this encounter Plan of Treatment Upcoming Encounters Date Type Department Care Team (Late Contact Info) Description 10/20/2024 1:00 PM EDT Ancillary Procedure [facility] OB [facility] [place] [phone] 10/27/2024 9:20 AM EDT Office Visit [place] [phone] Wilton Herrmann [facility] [place], [place] [id number] 10/30/2024 10:40 AM EDT Routine [facility] [place] [address] Wilton Herrmann, [address] [place] [address] [address] [place], [place] [id number] documented as of this encounter Visit Diagnoses Not on filedocumented in this encounter Care Teams Architect Marine Relationship Specialty Start Date End Date Evans Casas MD [address] [place] [address] PCP - General Family Medicine 11/07/23 documented as of this encounter
--- OUTSIDE RECORDS SUMMARY | 2024-10-06 09:50 | XMS_ITS | Encounter Summary ---
Author Organization [facility] Address [address] [facility] [place] [address] Care Team Providers Care Warehouse Inventory Clerk Name Role Phone Penelope Morton MD Primary Care Provider [phone] Encounter Details Date Type Department Care Team (Late Contact Info) Description 05/10/2024 Clinisync Result Encounter [facility] External Department Unsolicited Mya Herrmann DO [facility] [place], [place] [id number] Social History Tobacco Use Types Packs/Day Years [...] 10/20/2024 1:00 PM EDT Ancillary Procedure [facility] [address] [place] [phone] 10/27/2024 9:20 AM EDT Office Visit [place] [phone] Mya Herrmann DO [address] [place] [address] 10/30/2024 10:40 AM EDT Routine [facility] [address] [facility] [phone] Mya Herrmann DO [address] [facility] [place] [address] documented as of this encounter Procedures Procedure Name Priority Date/Time Associated Diagnosis Comments US OB LIMITED 1+ FETUSES 05/10/2024 9:26 AM EST [facility] PROTHROMBIN TIME INR W/O COUM Routine 05/10/2024 8:44 AM EST MHPT FIBRINOGEN Routine 05/10/2024 8:44 AM EST [facility] APTT Routine 05/10/2024 8:44 AM EST documented in this encounter Results * US OB limited 1+ fetuses (05/10/2024 9:26 AM EST) Anatomical Region Laterality Modality Body Ultrasound 05/10/2024 9:26 AM EST Narrative 05/10/2024 9:29 AM EST [address] [address] Ultrasound Report Signed Patient: MADHU RENDON MR#: [id number] : 1985 Acct:[id number] Age/Sex: 38 / F ADM Date: Loc: [facility] 258- Attending Dr: Mya Herrmann D.O. Ordering Physician: Mya Herrmann D.O. Date of Service: 05/10/24 Procedure(s): US OB limited Accession Number(s): [id number] cc: Mya Herrmann D.O.; PENELOPE MORTON [address] [address] Patient Name: MADHU RENDON MRN: [id number] date: 1985 Sex: F Assigned Patient Location: [facility] Current Patient Location: [place] Accession/Order Number: [id number] Exam Date: 05/10/2024 08:30 Report Date: 05/10/2024 09:26 At the request of: MYA HERRMANN Procedure: US OB limited EXAM: US OB limited HISTORY: confirm demise COMPARISON: Ultrasound OB transvaginal 04/04/2024 TECHNIQUE: Transabdominal ultrasound FINDINGS: pole: 6.3 cm, 12 weeks 5 days Heart rate: Absent Gestational sac: Present but irregular. GA by LMP: 14 weeks 4 days KLAUDIA by LMP: 11/04/2024 GA by US: 12 weeks 5 days KLAUDIA by US: 11/17/2024 US/US OB limited IMPRESSION: 1. Findings compatible with demise. Electronically authenticated by: PASCUAL RILEY Date: 05/10/2024 09:26 Dictated By: Pascual Riley M.D. Signed By: 05/10/24928 DD/ 5 TD/TT: Hoop Punch Operator Helper: Procedure Note Radiology, Radiologist, MD - 05/10/2024 [place] [address] Ultrasound Report Signed Patient: MADHU RENDON SMR#: [id number] : 1985Acct:[id number] Age/Sex: 38 / FADM Date: Loc: [facility] 258-[address]: Mya Herrmann D.O. Ordering Physician: Mya Herrmann D.O. Date of Service: 05/10/24 Procedure(s): US OB limited Accession Number(s): [id number] cc: Mya Herrmann D.O.; PENELOPE MORTON [place] [id number] Patient Name: MADHU RENDON MRN: [id number] date: 1985 Sex: F Assigned Patient Location: [facility] Current Patient Location: US Accession/Order Number: [id number] Exam Date: 05/10/2024 08:30 Report Date: 05/10/2024 09:26 At the request of: MYA HERRMANN Procedure: US OB limited EXAM: US OB limited HISTORY: confirm demise COMPARISON: Ultrasound OB transvaginal 04/04/2024 TECHNIQUE: Transabdominal ultrasound FINDINGS: pole: 6.3 cm, 12 weeks 5 days Heart rate: Absent Gestational sac: Present but irregular. GA by LMP: 14 weeks 4 days KLAUDIA by LMP: 11/04/2024 GA by US: 12 weeks 5 days KLAUDIA by US: 11/17/2024 US/US OB limited IMPRESSION: 1. Findings compatible with demise. Electronically authenticated by: PASCUAL RILEY Date: 05/10/2024 09:26 Dictated By: Pascual Riley M.D. Signed By:05/10/24928 DD/ 5 TD/TT: Hoop Punch Operator Helper: us Mya Montez DO IMG OB US PROCEDURES Final Resul t * MHPT FIBRINOGEN (05/10/2024 8:44 AM EST) FIBRINOGEN 391 200 - 400 mg/dL TB 05/10/2024 8:44 AM EST 05/10/2024 8:52 AM EST Narrative [facility] - 05/10/2024 9:35 AM EST us Mya Montez DO CLINISYNC Final Result Performing Organization Address [facility] Co de Phone Number [facility] * [facility] APTT (05/10/2024 8:44 AM EST) PARTIAL THROMBOPLASTIN TIME 28.5 22.3 - 36.2 sec TB 05/10/2024 8:44 AM EST 05/10/2024 8:52 AM EST Narrative [facility] - 05/10/2024 9:35 AM EST us Mya Montez DO CLINIS[facility]NC Final Result Performing Organization Address [facility]/ZIP Co de Phone Number [facility] * [facility] PROTHROMBIN TIME INR W/O COUM (05/10/2024 8:44 AM EST) PROTHROMBIN TIME 10.3 9.0 - 11.6 sec TBH TBH INR 0.97 TBH Comment: DESIRED INR: 2.0-3.0 CONDITIONS NOT LISTED BELOW 2.5-3.5 FOR PROSTHETIC HEART VALVE REPLACEMENT 2.5-3.5 RECURRENT THROMBOSIS 05/10/2024 8:44 AM EST 05/10/2024 8:52 AM EST Narrative [facility]IN[facility] - 05/10/2024 9:35 AM EST us Mya Montez DO [facility] Final Result [facility] documented in this encounter Visit Diagnoses Not on filedocumented in this encounter Care Teams Warehouse Inventory Clerk Relationship Specialty Start Date End Date Penelope Morton MD [address] [place] [address] PCP - General Family Medicine 11/07/23 documented as of this encounter
--- OUTSIDE RECORDS SUMMARY | 2024-10-06 09:50 | XMS_ITS | Encounter Summary ---
Author Organization [facility] Address [address] [facility] [place] [address] Care Team Providers Care Teller Vault Name Role Phone Evans Casas MD Primary Care Provider [phone] Encounter Details Date Type Department Care Team (Late Contact Info) Description 05/19/2024 Abstract [facility] [address] [place] [address] Wilton Herrmann DO [facility] [place], [place] [address] Social History Tobacco Use Types Packs/Day Years [...] EDT Ancillary Procedure [facility] [place] [address] 10/27/2024 9:20 AM EDT Office Visit [facility] [place] [address] Wilton Herrmann DO [address] [place], [facility] 10/30/2024 10:40 AM EDT Routine [facility] OB [address] [facility] [place] [address] Wilton Herrmann, [address] [facility] [address] [place], [place] [phone] documented as of this encounter Visit Diagnoses Not on filedocumented in this encounter Care Teams Teller Vault Relationship Specialty Start Date End Date Evans Casas MD [address] [place] [address] PCP - General Family Medicine 11/07/23 documented as of this encounter
--- OUTSIDE RECORDS SUMMARY | 2024-10-06 09:50 | XMS_ITS | Encounter Summary ---
Author Organization [facility] Address [address] [facility] [place] [address] Care Team Providers Care Explosives Engineer Name Role Phone Evans Casas MD Primary Care Provider [phone] Encounter Details Date Type Department Care Team (Late Contact Info) Description 09/11/2024 Abstract [facility] [address] [place] [address] Susie Ojeda MA Social History Tobacco Use Types Packs/Day Years Used Date Smoking Tobacco: Never Smokeless Tobacco: Never Alcohol Use Standard Drinks/Week Comments Never 0 (1 standard drink = 0.6 oz pur e alcohol) Comments No Sex and Gender Information Value Date Recorded Sex Assigned at Not on file Legal Sex Female 11:19 PM EDT Gender Identity Not on file Sexual Orientation Not on file documented as of this encounter Plan of Treatment Upcoming Encounters Date Type Department Care Team (Late Contact Info) Description 10/20/2024 1:00 PM EDT Ancillary Procedure [facility] OB [facility] [place] [phone] 10/27/2024 9:20 AM EDT Office Visit [place] [phone] Wilton Herrmann [facility] [place], [place] [phone] 10/30/2024 10:40 AM EDT Routine [facility] [place] [address] Wilton Herrmann, [address] [place], [place] [address] [address] documented as of this encounter Visit Diagnoses Not on filedocumented in this encounter Care Teams Explosives Engineer Relationship Specialty Start Date End Date Evans Casas MD [address] [place] [address] PCP - General Family Medicine 11/07/23 documented as of this encounter
--- OUTSIDE RECORDS SUMMARY | 2024-10-06 09:50 | XMS_ITS | Clinical Summary ---
Author Organization [facility] Address [address] [place] [address] Care Team Providers Care Jewelry Cutter Name Role Phone Penelope Casas MD Primary Care Provider [phone] Allergies Active Allergy Reactions Criticality Noted Date Comments Ciprofloxacin GI intolerance 04/19/2023 Ciprofloxacin-Fluocinolone Pf 05/19/2019 Other Reaction(s): Other: See Comments Dizziness, weakness sweating Lactose 09/10/2017 Other Reaction(s): GI Disturbance, GI Upset Diarrhea Diarrhea Lactose Intolerance (Gi) 11/15/2023 Other Reaction(s): Illness Octacosanol 05/05/2020 Other Reaction(s): Other (See Comments) Other Other Low 05/25/2017 seasonal Medications Multiple Vitamin (Multi-Vitamin) tablet Take 1 tablet by mouth in the morning. Active levothyroxine (Synthroid) 25 MCG tabletIndicatio ns:Abnormal TSH Take 1 tablet (25 mcg) by mouth in the morning. Take before meals. 30 tablet 11 06/23/19 25 026 Active azithromycin (Zithromax Z-Jonny) 250 MG tabletIndicatio ns:5 weeks gestation of As directed 6 tablet 09/09/19 25 Active Progesterone 200 MG suppositoryIndi cations:History of miscarriage Insert 200 mg into the vagina at bedtime Insert suppository vaginally every night at bedtime until 12 weeks gestation 30 suppository 3 09/19/19 25 025 Active metFORMIN XR (Glucophage-XR) 500 MG 24 hr tabletIndicatio ns:Insulin resistance Take 1 tablet (500 mg) by mouth 1 (one) time each day at the same time 30 tablet 09/19/19 25 026 Active enoxaparin (Lovenox) 40 MG/0.4ML injection 1 (one) time each day at the same time Active metFORMIN XR (Glucophage-XR) 500 MG 24 hr tabletIndicatio ns:Insulin resistance Take 1 tablet (500 mg) by mouth 1 (one) time each day at the same time 30 tablet 06/23/19 025 Discontin ued(Reord er) Progesterone 200 MG suppositoryIndi cations:History of miscarriage Insert 200 mg into the vagina at bedtime Insert suppository vaginally every night at bedtime until 12 weeks gestation 30 suppository 2 09/02/19 025 Discontin ued(Reord er) metFORMIN XR (Glucophage-XR) 500 MG 24 hr tabletIndicatio ns:Insulin resistance Take 1 tablet (500 mg) by mouth 1 (one) time each day at the same time 30 tablet 09/19/19 025 Discontin ued(Other ) Active Problems Problem Noted Date Diagnosed Date Referred otalgia of right ear 11/19/2023 LPRD (laryngopharyngeal reflux disease) 11/19/19 24 Acute on chronic vesicular eczema of hands and f eet 11/15/2023 Blood pressure elevated without history of HTN 0 11/15/2023 BMI 37.0-37.9, adult 11/15/2023 Cold intolerance 11/15/2023 Deviated septum 11/15/2023 Dry mouth 11/15/2023 Elevated blood pressure reading 11/15/2023 Environmental allergies 11/15/2023 H/O: hypothyroidism 11/15/2023 History of asthma 11/15/2023 History of cerebrovascular accident 11/15/2023 Overview (11/15/2023): reported by pt - related to antiphospholipid syndrome History of COVID-19 11/15/2023 History of gestational diabetes 11/15/2023 History of kidney stones 11/15/2023 Hx of iron deficiency anemia 11/15/2023 Immunization not carried out because of patient decision 11/15/2023 Iron deficiency 11/15/2023 Irregular uterine bleeding 11/15/2023 Morbid obesity 11/15/2023 Nasal polyps 11/15/2023 Non-smoker 11/15/2023 NEETA (obstructive sleep apnea) 11/15/2023 Paresthesia of bilateral legs 11/15/2023 Pre-diabetes 11/15/2023 Right lower quadrant pain 11/15/2023 Right otitis externa 11/15/2023 Salivary gland swelling 11/15/2023 Snoring 11/15/2023 Abdominal pain 06/12/2023 Acute bronchitis due to infection 06/12/2023 Anxiety 06/12/2023 Dysfunction of eustachian tube 06/12/2023 Dyspnea 06/12/2023 Hematochezia 06/12/2023 Inhalation injury 06/12/2023 problem 06/12/2023 Psychogenic hyperventilation 06/12/2023 Suspected severe acute respi ratory syndrome coronavirus 2 (SARS-CoV-2) infection 06/12/2023 Hypoglycemia 06/12/2023 Primary hypercoagulable state 08/01/2022 Gestational diabetes mellitus (GDM) affecting pr egnancy 01/26/2022 Genitourinary symptoms 08/19/2021 Muscle fasciculation 08/19/2021 Anticoagulant long-term use 02/22/2020 Cerebrovascular accident (CV A) due to stenosis of middle cerebral artery 02/22/2020 Anemia complicating childbirth 01/16/2020 First degree perineal laceration during delivery 01/16/2020 Acute posthemorrhagic anemia 01/16/2020 Other immediate hemorrhage 01/16/2020 Personal history of urinary (tract) infections 0 01/16/2020 Single live 01/15/2020 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 01/08/2020 Pruritus, unspecified 01/02/2020 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) 12/30/2019 32 weeks gestation of 11/28/2019 Thrombocytopenia, unspecified 11/20/2019 Other general symptoms and signs 10/28/2019 Urinary tract infection 10/16/2019 Palpitations 08/26/2019 SVT (supraventricular tachycardia) 08/26/2019 Antiphospholipid antibody syndrome 07/07/2019 Other bacterial infections of unspecified site 0 06/27/2019 Less than 8 weeks gestation of 020 Encounter for supervision of normal , unspecified, first trimester 05/29/2019 Cerebral infarction, unspecified 05/16/2019 Deficiency of other specified B group vitamins 0 05/16/2019 Hyponatremia 05/16/2019 Unspecified condition associ ated with female genital organs and menstrual cycle 05/09/2019 Other specified noninflammatory disorders of vag jaxson 02/21/2019 Frequency of micturition 02/19/2019 Unspecified ovarian cyst, right side 02/06/2019 Cervicalgia 02/05/2019 Coagulation defect, unspecified 02/05/2019 Dizziness and giddiness 02/05/2019 longterm (current) use of 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/antip latelets 02/05/2019 Other acute postprocedural pain 02/03/2019 Pelvic and perineal pain 02/01/2019 Syncope and collapse 06/03/2018 Raised antibody titer 09/25/2017 Migraine without aura and wi thout status migrainosus, not intractable 09/12/2017 Antiphospholipid antibody positive 09/10/2017 Fatigue 12/29/2016 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 Pain in joint 12/29/2016 Estimated Date of Delivery Comme nts Yes 05/04/2025 Based on last me nstrual period of 07/28/2024 Encounters Date Type Department Care Team Description 10/02/2024 1:00 PM EDT Initial [facility] [place] [address] [place] [address] GA: 9w3d 10/02/2024 Abstract [facility] [place] [address] [place] [address] Mya Herrmann, 10/01/2024 Telephone [facility] [address] Mya Herrmann, 09/18/2024 Refill [facility] [place] [address] [place] [address] Ariane Joseph LPN History of miscarriage; Insulin resistance 09/11/2024 Abstract [facility] [place] [address] [place] [address] Susie Ojeda MA 09/11/2024 Clinisync Result Encounter [facility] External Department Unsolicited Mya Herrmann, DO 09/09/2024 Telephone [facility] [address] [place] [address] [place] [address] [place] 09/08/2024 Telephone [facility] [address] [place] [address] [place] [address] Rosi Murray LPN 09/08/2024 Telephone [facility] [address] [place] [address] [place] [address] [place] 09/05/2024 Telephone [facility] [address] [place] [address] [place] [address] Mya Herrmann, DO 09/01/[address] [facility] [address] [place] [address] Mya Herrmann, DO 09/01/2024 Refill [facility] [address] [place] [address] [place] [address] Renate Vegas, DEB History of miscarriage 09/01/2024 Abstract [facility] [address] [place] [address] Mya Herrmann, DO 08/22/[address] [facility] [address] [place] [address] Ariane Joseph LPN 07/24/2024 11:50 AM EDT Office Visit [facility] [address] [place] [address] [place] [address] Mya Herrmann, DO Irregular menstrual cycle 07/24/2024 Bamboo flowsheet [facility] [address] [place] [address] [place] [address] Mya Herrmann, DO 07/09/2024 Clinisync Result Encounter [facility] External Department Unsolicited Farhat Blue, DO 07/07/2024 Abstract [facility] [address] [place] [address] Mya Herrmann DO from Last 3 Months Family History Medical History Relation Name Comments Cerebrovascular Accident Father Diabetes Father Heart problems Maternal Grandfather Mental illness Maternal Grandmother Cancer Paternal Grandfather Diabetes Paternal Grandfather Cancer Paternal Grandmother Diabetes Paternal Grandmother Diabetes Sister Relation Name Status Comments Father Maternal Grandfather Maternal Grandmother Paternal Grandfather Paternal Grandmother Sister Social History Tobacco Use Types Packs/Day Years Used Date Smoking Tobacco: Never Smokeless Tobacco: Never Tobacco Cessation:Counseling Given: Not Answered Alcohol Use Standard Drinks/Week Comments Never 0 [...] (210 lb) 10/02/2024 2:10 PM EDT Height 167.6 cm (5' 6 ) 11/19/2023 1:48 PM EDT Body Mass Index 33.89 11/19/2023 1:48 PM EDT Plan of Treatment Upcoming Encounters Date Type Department Care Team (Late st Contact Info) Description 10/20/2024 1:00 PM EDT Ancillary Procedure [facility] [place] [address] 10/27/2024 9:20 AM EDT Office Visit [facility] [place] [address] Mya Herrmann DO [address] [place] [address] 10/30/2024 10:40 AM EDT Routine [facility] [place] [address] Mya Herrmann, DO [address] [facility] [place] [address] Health Maintenance Due Date Last Done Comments HPV/Cotest 10/22/2015 Influenza Vaccine (Season Ended) 2024 Cervical Cancer Screening 02/14/2025 Pap Smear 02/14/2025 02/14/2022 Procedures Procedure Name Priority Date/Time Associated Diagnosis Comments POCT URINALYSIS DIPSTICK Routine 10/02/2024 2:10 PM EDT Missed menses POCT , URINE Routine 10/02/2024 2:10 PM EDT Missed menses OB TRANSVAGINAL 09/11/2024 11 :36 AM EDT POCT , URINE Routine 07/24/2024 12:16 PM EDT Irregular menstrual cycle [facility] HIV SCREEN 4TH GENERATION WRFX Routine 07/09/2024 1:14 PM EDT [facility] .INTERPRETATION: Routine 07/09/2024 1:14 PM EDT [facility] HCV ANTIBODY RFX TO QUANT PCR Routine 07/09/2024 1:14 PM EDT [facility] HEP BE AG Routine 07/09/2024 1:14 PM EDT [facility] HEP BS AG Routine 07/09/2024 1:14 PM EDT PAP SMEAR Routine 02/14/2022 12:00 AM EDT from Last 3 Months or Most Recently Relevant to Health Maintenance Results * (ABNORMAL) POCT , urine manually resulted (10/02/2024 2:10 PM EDT) Only the most recent of2 resultswithin the time period is included. Preg Test, Ur Positive Negative Urine 10/02/2024 2:10 PM EDT Mya Herrmann DO POINT OF CARE TEST ENTER/EDIT OR DERABLES Final Result * POCT urinalysis dipstick manually resulted (10/02/2024 [...] - Positive Urine 10/02/2024 2:10 PM EDT Mya Herrmann DO POINT OF CARE TEST ENTER/EDIT OR DERABLES Final Result * US OB TRANSVAGINAL (09/11/2024 11:36 AM EDT) Anatomical Region Laterality Modality Other 09/11/2024 11:3 6 AM EDT Narrative 09/11/2024 11:38 [place] [address] Ultrasound Report Signed Patient: MADHU RENDON MR#: [id number] : 1985 Acct:[id number] Age/Sex: 38 / F ADM Date: 09/11/24 Loc: US Attending Dr: Mya Herrmann D.O. Ordering Physician: Mya Herrmann D.O. Date of Service: 09/11/24 Procedure(s): US OB transvaginal Accession Number(s): [id number] cc: Mya Herrmann D.O.; PENELOPE CASAS The [address] [address] Patient Name: MADHU RENDON MRN: [facility]:[id number] date: 1985 Sex: F Assigned Patient Location: US Current Patient Location: Accession/Order Number: [id number] Exam Date: 09/11/2024 11:34 Report Date: 09/11/2024 11:36 At the request of: MYA HERRMANN DO Procedure: US OB transvaginal US OB transvaginal 09/11/2024 9:10 AM SIGNS AND SYMPTOMS: History Of Miscarriage COMPARISON: None. TECHNIQUE: Limited pelvic ultrasound using transvesical sonography. FINDINGS: An early intrauterine is identified. The visualized pole has an estimated gestational age of 6 weeks and 3 days. A heart rate is identified at 100 and. A normal amount of amniotic fluid is present. There is no evidence for placenta previa or subchorionic hemorrhage. Pelvic survey reveals no gross abnormalities. The suspected corpus luteum cyst is noted in the left ovary measuring up to 1.5 cm in greatest dimension. The cervix measures 3.5 cm in length. US/US OB transvaginal IMPRESSION: Single live IUP with an estimated gestational age of 6 weeks and 3 days and normal heart rate. Impression dictated by: Baljinder Montano M.D. 09/11/2024 11:36 AM Dictation Location: [place] [address] Electronically authenticated by: [id number] Y Date: 09/11/2024 11:36 Dictated By: Baljinder Montano M.D. Signed By: 09/11/24 1138 DD/ 1136 TD/TT: Tube Bender Hand: Procedure Note Radiology, Radiologist, - 09/11/2024 [place] [address] Ultrasound Report Signed Patient: MADHU RENDON [facility]#: [id number] : 1985Acct:[id number] Age/Sex: 38 / FADM Date: 09/11/24 Loc: US Attending Dr: Mya Herrmann D.O. Ordering Physician: Mya Herrmann D.O. Date of Service: 09/11/24 Procedure(s): US OB transvaginal Accession Number(s): [id number] cc: Mya Herrmann D.O.; PENELOPE CASAS [address] [address] Patient Name: MADHU RENDON MRN: [facility]:[id number] date: 1985 Sex: F Assigned Patient Location: US Current Patient Location: US Accession/Order Number: [id number] Exam Date: 09/11/2024 11:34 Report Date: 09/11/2024 11:36 At the request of: MYA HERRMANN DO Procedure: US OB transvaginal US OB transvaginal 09/11/2024 9:10 AM SIGNS AND SYMPTOMS: History Of Miscarriage COMPARISON: None. TECHNIQUE: Limited pelvic ultrasound using transvesical sonography. FINDINGS: An early intrauterine is identified. The visualized polehas an estimated gestational age of 6 weeks and 3 days. A heart rate isidentified at 100 and. A normal amount of amniotic fluid is present. There is noevidence for placenta previa or subchorionic hemorrhage. Pelvic survey reveals no gross abnormalities. The suspected corpus luteum cyst is noted in the left ovary measuring up to 1.5 cm in greatestdimension. The cervix measures 3.5 cm in length. US/US OB transvaginal IMPRESSION: Single live IUP with an estimated gestational age of 6 weeks and 3 daysand normal heart rate. Impression dictated by: Baljinder Montano M.D. 09/11/2024 11:36 AM Dictation Location: [place] [address] Electronically authenticated by: [id number] Y Date: 1:36 Dictated By: Baljinder Montano M.D. Signed By:09/11/24 1138 DD/ 1136 TD/TT: Tube Bender Hand: us Mya Herrmann DO [facility] Final Result * [facility] HIV SCREEN 4TH GENERATION WRFX (07/09/2024 1:14 PM EDT) [facility] HIV 1+2 AB+HIV1 P24 AG:PRTHR:PT:SE R/PLAS:ORD:IA Non Reactive Non Reactive [facility] Comment: HIV-1/HIV-2 antibodies and HIV-1 p24 antigen were NOT detected. There is no laboratory evidence of HIV infection. HIV Negative Performed at: [address] [id number] PhD Jd Montano Blood 07/09/2024 1:14 PM EDT 07/09/2024 1:57 PM EDT Narrative [facility] - 07/10/2024 8:07 AM EDT Original Ordering Provider: DO Farhat Blue us Farhat Blue DO [facility] Final Result Performing Organization Address [facility] de Phone Number [facility] * [facility] HEP BS AG (07/09/2024 1:14 PM EDT) [facility] HEPATITIS B VIRUS SURFACE AG:PRTHR:PT:SE R/PLAS:ORD:IA Negative Negative [facility] Comment: Performed at: [address] [id number] PhD Jd Montano Blood 07/09/2024 1:14 PM EDT 07/09/2024 1:57 PM EDT Narrative [facility] - 07/10/2024 8:07 AM EDT Original Ordering Provider: DO Farhat Blue us Farhat Blue DO [facility] Final Result Performing Organization Address [facility] Co de Phone Number [facility] * [facility] HEP BE AG (07/09/2024 1:14 PM EDT) [facility] HEPATITIS B VIRUS LITTLE E AG:PRTHR:PT:SE R/PLAS:ORD:IA Negative Negative [facility] Comment: Performed at: [address] [id number] [facility] Jd Montano Blood 07/09/2024 1:14 PM EDT 07/09/2024 1:56 PM EDT Narrative [facility] - 07/10/2024 8:07 AM EDT Original Ordering Provider: DO Farhat Blue us Farhat Blue DO [facility] Final Result Performing Organization Address [facility] Phone Number [facility] HCV ANTIBODY RFX TO QUANT PCR (07/09/2024 1:14 PM EDT) [facility] HEPATITIS C VIRUS AB:PRTHR:PT:S ER/PLAS:ORD:I A Non Reactive Non Reactive [facility] Comment: Performed at: [address] [id number] [facility] Jd Montano Blood 07/09/2024 1:14 PM EDT 07/09/2024 1:56 PM EDT Narrative [facility] - 07/10/2024 8:07 AM EDT Original Ordering Provider: DO Farhat Blue us Farhat Blue DO [facility] Final Result Performing Organization Address [facility] Phone Number [facility] .INTERPRETATION: (07/09/2024 1:14 PM EDT) [facility] HEPATITIS C VIRUS AB:PRTHR:PT:SER/PLAS: ORD:IA Comment [facility] Comment: Not infected with HCV unless early or acute infection is suspected (which may be delayed in an immunocompromised individual), or other evidence exists to indicate HCV infection. Performed at: [address] [id number] Jd Montano Blood 07/09/2024 1:14 PM EDT 07/09/2024 1:57 PM EDT Narrative [facility] - 07/10/2024 8:07 AM EDT Original Ordering Provider: DO Farhat A Su us Farhat A Visci DO [facility] Final Result [facility] * Pap Smear (02/14/2022 12:00 AM EDT) Swab Cervical swab / Unknown us [facility] [place] Nurse LAB CYTOLOGY ORDERABLES Final Result EXTERNAL LAB from Last 3 Months or Most Recently Relevant to Health Maintenance Insurance [facility] MEDICAID [place] Care Teams Jewelry Cutter Relationship Specialty Start Date End Date Penelope Casas MD [address] [place] [address] PCP - General Family Medicine 11/07/23
--- OUTSIDE RECORDS SUMMARY | 2024-10-06 09:50 | XMS_ITS | Encounter Summary ---
Author Organization [facility] Address [address] [facility] [place] [address] Care Team Providers Care Beach Expert Name Role Phone Evans Casas MD Primary Care Provider [phone] Encounter Details Date Type Department Care Team (Late Contact Info) Description 02/26/2024 Abstract [facility] [address] [place] [address] Wilton Herrmann DO [facility] [address] [place], [place] [address] Social History Tobacco Use Types Packs/Day Years Used Date Smoking Tobacco: Never Smokeless Tobacco: Never Alcohol Use Standard Drinks/Week Comments Never 0 (1 standard drink = 0.6 oz pur e alcohol) Comments Unknown Sex and Gender Information Value Date Recorded Sex Assigned at Not on file Legal Sex Female 11:19 PM EDT Gender Identity Not on file Sexual Orientation Not on file documented as of this encounter Plan of Treatment Upcoming Encounters Date Type Department Care Team (Late Contact Info) Description 10/20/2024 1:00 PM EDT Ancillary Procedure [facility] [place] [address] 10/27/2024 9:20 AM EDT Office Visit [facility] [place] [address] Wilton Herrmann DO [address] [place], [facility] 10/30/2024 10:40 AM EDT Routine [facility] [address] [facility] [place] [address] Wilton Herrmann, [address] [facility] [address] [place], [place] [id number] documented as of this encounter Visit Diagnoses Not on filedocumented in this encounter Care Teams Beach Expert Relationship Specialty Start Date End Date Evans Casas MD [address] [place] [address] PCP - General Family Medicine 11/07/23 documented as of this encounter
--- OUTSIDE RECORDS SUMMARY | 2024-10-06 09:50 | XMS_ITS | Encounter Summary ---
Author Organization [facility] Address [address] [facility] [place] [address] Care Team Providers Care Flight Hostess Name Role Phone Evans Casas MD Primary Care Provider [phone] Encounter Details Date Type Department Care Team (Late Contact Info) Description 06/13/2024 Abstract [facility] [address] [place] [address] Wilton Herrmann DO [facility] [address] [place], [place] [address] Social History Tobacco Use Types Packs/Day Years [...] EDT Ancillary Procedure [facility] [place] [place] [address] 10/27/2024 9:20 AM EDT Office Visit [facility] [place] [address] Wilton Herrmann DO [address] [place], [place] [id number] 10/30/2024 10:40 AM EDT Routine [facility] [address] [facility] [place] [address] Wilton Herrmann, [address] [facility] [address] [place], [place] [id number] documented as of this encounter Visit Diagnoses Not on filedocumented in this encounter Care Teams Flight Hostess Relationship Specialty Start Date End Date Evans Casas MD [address] [place] [address] PCP - General Family Medicine 11/07/23 documented as of this encounter
--- OUTSIDE RECORDS SUMMARY | 2024-10-06 09:50 | XMS_ITS | Encounter Summary ---
Author Organization [facility] Address [address] [facility] [place] [address] Care Team Providers Care Weight Loss Sales Consultant Name Role Phone Evans Casas MD Primary Care Provider [phone] Encounter Details Date Type Department Care Team (Late Contact Info) Description 05/12/2024 Abstract [facility] [address] [place] [address] Wilton Herrmann DO [facility] [address] [place], [place] [address] Social History Tobacco Use Types Packs/Day Years [...] 10/20/2024 1:00 PM EDT Ancillary Procedure [facility] [place] [place] [address] 10/27/2024 9:20 AM EDT Office Visit [facility] [place] [address] Wilton Herrmann DO [address] [place], [place] [id number] 10/30/2024 10:40 AM EDT Routine [facility] [address] [facility] [place] [address] Wilton Herrmann, [address] [facility] [address] [place], [place] [id number] documented as of this encounter Visit Diagnoses Not on filedocumented in this encounter Care Teams Weight Loss Sales Consultant Relationship Specialty Start Date End Date Evans Casas MD [address] [place] [address] PCP - General Family Medicine 11/07/23 documented as of this encounter
--- OUTSIDE RECORDS SUMMARY | 2024-10-06 09:50 | XMS_ITS | Encounter Summary ---
Author Organization [facility] Address [address] [facility] [place] [address] Care Team Providers Care Delivery Agent Name Role Phone Evans Casas MD Primary Care Provider [phone] Encounter Details Date Type Department Care Team (Late Contact Info) Description 03/04/2024 Abstract [facility] [address] [place] [address] Wilton Herrmann DO [facility] [address] [place], [place] [address] Social History Tobacco Use Types Packs/Day Years [...] 10/20/2024 1:00 PM EDT Ancillary Procedure [facility] [place] [address] 10/27/2024 9:20 AM EDT Office Visit [facility] [place] [address] Wilton Herrmann DO [address] [place], [facility]11 10/30/2024 10:40 AM EDT Routine [facility] [address] [facility] [place] [address] Wilton Herrmann, [address] [facility] [address] [place], [place] [id number] documented as of this encounter Visit Diagnoses Not on filedocumented in this encounter Care Teams Delivery Agent Relationship Specialty Start Date End Date Evans Casas MD [address] [place] [address] PCP - General Family Medicine 11/07/23 documented as of this encounter
--- OUTSIDE RECORDS SUMMARY | 2024-10-06 09:50 | XMS_ITS | Encounter Summary ---
Author Organization [facility] Address [address] [facility] [place] [address] Care Team Providers Care Medical Case Worker Name Role Phone Evans Casas MD Primary Care Provider [phone] Encounter Details Date Type Department Care Team (Late Contact Info) Description 05/06/2024 Abstract [facility] [address] [place] [address] Wilton Herrmann DO [facility] [place], [place] [address] Social History Tobacco Use Types Packs/Day Years [...] 10/20/2024 1:00 PM EDT Ancillary Procedure [facility] [place] [address] 10/27/2024 9:20 AM EDT Office Visit [facility] [place] [address] Wilton Herrmann DO [address] [place], [facility] 10/30/2024 10:40 AM EDT Routine [facility] [address] [facility] [place] [address] Wilton Herrmann, [address] [facility] [address] [place], [place] [id number] documented as of this encounter Visit Diagnoses Not on filedocumented in this encounter Care Teams Medical Case Worker Relationship Specialty Start Date End Date Evans Casas MD [address] [place] [address] PCP - General Family Medicine 11/07/23 documented as of this encounter
--- OUTSIDE RECORDS SUMMARY | 2024-10-06 09:50 | XMS_ITS | Encounter Summary ---
Author Organization [facility] Address [address] [facility] [place] [address] Care Team Providers Care Fine Grade Bulldozer Operator Name Role Phone Evans Casas MD Primary Care Provider [phone] Encounter Details Date Type Department Care Team (Late Contact Info) Description 10/02/2024 Abstract [facility] [address] [place] [address] Wilton Herrmann DO [facility] [place], [facility]11 Social History Tobacco Use Types Packs/Day Years [...] 10/20/2024 1:00 PM EDT Ancillary Procedure [facility] OB [address] [place] [address] 10/27/2024 9:20 AM EDT Office Visit [facility] OB [address] [place] [address] Wilton Herrmann DO [address] [place] [address] 10/30/2024 10:40 AM EDT Routine [facility] [address] [facility] [place] [address] Wilton Herrmann, DO [address] [facility] [place] [address] documented as of this encounter Visit Diagnoses Not on filedocumented in this encounter Care Teams Fine Grade Bulldozer Operator Relationship Specialty Start Date End Date Evans Casas MD [address] [place] [address] PCP - General Family Medicine 11/07/23 documented as of this encounter
--- OUTSIDE RECORDS SUMMARY | 2024-10-06 09:50 | XMS_ITS | Encounter Summary ---
Author Organization [facility] Address [address] [facility] [place] [address] Care Team Providers Care Braille And Talking Books Clerk Name Role Phone Evans Casas MD Primary Care Provider [phone] Encounter Details Date Type Department Care Team (Late Contact Info) Description 06/10/2024 Abstract [facility] [address] [place] [address] Wilton Herrmann DO [facility] [place], [place] [address] Social History Tobacco Use Types Packs/Day Years [...] 10/20/2024 1:00 PM EDT Ancillary Procedure [facility] [place] [address] 10/27/2024 9:20 AM EDT Office Visit [facility] [place] [address] Wilton Herrmann DO [address] [place], [facility]11 10/30/2024 10:40 AM EDT Routine [facility] OB [address] [facility] [place] [address] Wilton Herrmann, [address] [facility] [address] [place], [place] [address] documented as of this encounter Visit Diagnoses Not on filedocumented in this encounter Care Teams Braille And Talking Books Clerk Relationship Specialty Start Date End Date Evans Casas MD [address] [place] [address] PCP - General Family Medicine 11/07/23 documented as of this encounter
--- OUTSIDE RECORDS SUMMARY | 2024-10-06 09:50 | XMS_ITS | Encounter Summary ---
Author Organization [facility] Address [address] [facility] [facility] [place] [address] Care Team Providers Care Deicer Inspector Pneumatic Name Role Phone Evans Casas MD Primary Care Provider [phone] Encounter Details Date Type Department Care Team (Late Contact Info) Description 11/15/2023 Abstract [facility] [address] [facility] [address] [place] [address] Sari Almeida MA Social History Tobacco Use Types Packs/Day [...] Procedure [facility] [address] [place] [address] 10/27/2024 9:20 AM EDT Office Visit [facility] [address] [place] [address] Wilton Herrmann DO [facility] [place], [place] [address] 10/30/2024 10:40 AM EDT Routine [facility] [place] [address] Wilton Herrmann, [address] [place] [address] documented as of this encounter Visit Diagnoses Not on filedocumented in this encounter Care Teams Deicer Inspector Pneumatic Relationship Specialty Start Date End Date Evans Casas MD [address] [place] [address] PCP - General Family Medicine 11/07/23 documented as of this encounter
--- OUTSIDE RECORDS SUMMARY | 2024-10-06 09:50 | XMS_ITS | Encounter Summary ---
Author Organization [facility] Address [address] [facility] [place] [address] Care Team Providers Care Behavioral Consultant Name Role Phone Evans Casas MD Primary Care Provider [phone] Encounter Details Date Type Department Care Team (Late Contact Info) Description 03/04/2024 Abstract [facility] [address] [place] [address] Wilton Herrmann DO [facility] [address] [place], [place] [address] Social History Tobacco Use Types Packs/Day Years [...] 10/20/2024 1:00 PM EDT Ancillary Procedure [facility] [place] [place] [address] 10/27/2024 9:20 AM EDT Office Visit [facility] [place] [place] [address] Wilton Herrmann DO [address] [place], [facility]11 10/30/2024 10:40 AM EDT Routine [facility] [address] [facility] [place] [address] Wilton Herrmann, [address] [facility] [address] [place], [place] [address] documented as of this encounter Visit Diagnoses Not on filedocumented in this encounter Care Teams Behavioral Consultant Relationship Specialty Start Date End Date Evans Casas MD [address] [place] [address] PCP - General Family Medicine 11/07/23 documented as of this encounter
--- OUTSIDE RECORDS SUMMARY | 2024-10-06 09:50 | XMS_ITS | Encounter Summary ---
Author Organization [facility] Address [address] [facility] [place] [address] Care Team Providers Care Driver Education Instructor Name Role Phone Penelope Casas MD Primary Care Provider [phone] Encounter Details Date Type Department Care Team (Late Contact Info) Description 04/05/2024 Clinisync Result Encounter [facility] External Department Unsolicited Mya Herrmann DO [facility] [place], [place] [id number] Social History Tobacco Use Types Packs/Day Years [...] Procedure [facility] [address] [place] [address] 10/27/2024 9:20 AM EDT Office Visit [place] [address] Mya Herrmann DO [address] [place] [address] 10/30/2024 10:40 AM EDT Routine [facility] [address] [facility] [place] [address] Mya Herrmann DO [address] [facility] [place] [address] documented as of this encounter Procedures Procedure Name Priority Date/Time Associated Diagnosis Comments US OB TRANSVAGINAL 04/05/2024 4: 39 AM EST documented in this encounter Results * US OB TRANSVAGINAL (04/05/2024 4:39 AM EST) Anatomical Region Laterality Modality Other 04/05/2024 4:39 AM EST Narrative 04/05/2024 4:42 AM EST [address] [address] Ultrasound Report Signed Patient: Madhu Rendon MR#: [id number] : 1985 Acct:[id number] Age/Sex: 38 / F ADM Date: 04/04/24 Loc: [facility] Attending Dr: Mya Hrermann D.O. Ordering Physician: Mya Herrmann D.O. Date of Service: 04/04/24 Procedure(s): US OB transvaginal Accession Number(s): [id number] cc: Mya Herrmann D.O.; PENELOPE CASAS [address] [address] Patient Name: MADHU RENDON MRN: [id number] date: 1985 Sex: F Assigned Patient Location: [facility] Current Patient Location: Accession/Order Number: [id number] Exam Date: 04/04/2024 09:43 Report Date: 04/05/2024 04:39 At the request of: MYA HERRMANN Procedure: US OB transvaginal EXAMINATION: US OB transvaginal HISTORY: MISSED MENSES COMPARISON: No relevant comparison available. FINDINGS: GESTATIONAL SAC: Present and normal appearing. YOLK SAC: Present and normal appearing. POLE: Present and normal appearing. CARDIAC: Present. UTERUS: Normal size and appearance. OVARIES: Right: Normal. Left: Normal. CERVIX: 4.9 cm in length and closed. CUL-DE-SAC: Normal. OTHER: None. AGE BY LMP: 9 weeks 3 days KLAUDIA BY LMP: 11/04/2024 AGE BY US CRL: 9 weeks 3 days KLAUDIA BY US CRL: 11/04/2024 US/US OB transvaginal IMPRESSION: 1. Single live intrauterine . Electronically authenticated by: PASCUAL RILEY Date: 04/05/2024 04:39 Dictated By: Pascual Riley M.D. Signed By: 04/05/242 DD/ TD/TT: Senior Ssis Developer: Procedure Note Radiology, Radiologist, - 04/05/2024 [place] [address] Ultrasound Report Signed Patient: Madhu Rendon [facility]#: [id number] : 1985Acct:[id number] Age/Sex: 38 / FADM Date: 04/04/24 Loc: [facility] Attending Dr: Mya Herrmann D.O. Ordering Physician: Mya Herrmann D.O. Date of Service: 04/04/24 Procedure(s): US OB transvaginal Accession Number(s): [id number] cc: Mya Herrmann D.O.; PENELOPE CASAS [place] [address] Patient Name: MADHU RENDON MRN: [id number] date: 1985 Sex: F Assigned Patient Location: [facility] Current Patient Location: Accession/Order Number: [id number] Exam Date: 04/04/2024 09:43 Report Date: 04/05/2024 04:39 At the request of: MYA HERRMANN Procedure: US OB transvaginal EXAMINATION: US OB transvaginal HISTORY: MISSED MENSES COMPARISON: No relevant comparison available. FINDINGS: GESTATIONAL SAC: Present and normal appearing. YOLK SAC: Present and normal appearing. POLE: Present and normal appearing. CARDIAC: Present. UTERUS: Normal size and appearance. OVARIES: Right: Normal. Left: Normal. CERVIX: 4.9 cm in length and closed. CUL-DE-SAC: Normal. OTHER: None. AGE BY LMP: 9 weeks 3 days KLAUDIA BY LMP: 11/04/2024 AGE BY US CRL: 9 weeks 3 days KLAUDIA BY US CRL: 11/04/2024 US/US OB transvaginal IMPRESSION: 1. Single live intrauterine . Electronically authenticated by: PASCUAL RILEY Date: 04/05/2024 04:39 Dictated By: Pascual Riley M.D. Signed By:04/05/24 0442 DD/ 0439 TD/TT: Senior Ssis Developer: us Mya Montez DO [facility] Final Result documented in this encounter Visit Diagnoses Not on filedocumented in this encounter Care Teams Driver Education Instructor Relationship Specialty Start Date End Date Penelope Casas MD [facility] [place] [address] PCP - General Family Medicine 11/07/23 documented as of this encounter
--- OUTSIDE RECORDS SUMMARY | 2024-10-06 09:50 | XMS_ITS | Encounter Summary ---
Author Organization [facility] Address [address] [place] [address] Care Team Providers Care Flavor Extractor Name Role Phone Evans Casas MD Primary Care Provider [phone] Encounter Details Date Type Department Care Team (Late st Contact Info) Description 10/01/2024 Telephone [facility] [address] [facility] [place] [address] Wilton Herrmann, DO [address] [place], [facility] Social History Tobacco Use Types Packs/Day Years [...] on file documented as of this encounter Miscellaneous Notes * Telephone Encounter - Renate DEB Vegas - 10/01/2024 10:52 AM EDT I am calling because I am about 9 weeks and I do have an ultrasound tomorrow with a nurse visit, but I started spotting last night and then it went away. It was like a light brown and then some pink and Maybe like a touch of red and then it stopped and then this morning now it is brown and a littlebit more, but then it stopped and I did not know if I should be concerned I am rh negative, so if you could call me back. Patient call was returned and she was advised brown is old blood we worry about bright red, heaviness, abdominal discomfort or pain. Patient states that she is not having any of this. Patient states does have some vaginal mucous with slight pink in there, patient was asked if any intercourse recently she states no but does do progesterone suppositories, reassured that irritation can cause this at times. Patient does have constipation is using Colace advised can use miralax daily and to increaseher fluid intake with these also. Patient did not have any further needs at this time and will follow up with appointment and ultrasound on 10/02/2024. documented in this encounter Plan of Treatment Upcoming Encounters Date Type Department Care Team (Late st Contact Info) Description 10/20/2024 1:00 PM EDT Ancillary Procedure [facility] [address] [place] [address] 10/27/2024 9:20 AM EDT Office Visit [facility] [address] [place] [address] Wilton Herrmann, DO [address] [place] [address] 10/30/2024 10:40 AM EDT Routine [facility] [address] [place] [address] Wilton Herrmann, DO [facility] [place] [address] documented as of this encounter Visit Diagnoses Not on filedocumented in this encounter Care Teams Flavor Extractor Relationship Specialty Start Date [place] [address] PCP - General Family Medicine 11/07/23 documented as of this encounter
--- OUTSIDE RECORDS SUMMARY | 2024-10-06 09:50 | XMS_ITS | Encounter Summary ---
Author Organization [facility] Address [address] [facility] [place] [address] Care Team Providers Care Electric Sign Wirer Name Role Phone Evans Casas MD Primary Care Provider [phone] Encounter Details Date Type Department Care Team (Late Contact Info) Description 06/02/2024 Abstract [facility] [address] [place] [address] Wilton Herrmann DO [facility] [address] [place], [place] [address] Social History Tobacco Use Types Packs/Day Years [...] 10/20/2024 1:00 PM EDT Ancillary Procedure [facility] [place] [address] 10/27/2024 9:20 AM EDT Office Visit [facility] [place] [address] Wilton Herrmann DO [address] [place], [facility]11 10/30/2024 10:40 AM EDT Routine [facility] OB [address] [facility] [place] [address] Wilton Herrmann, [address] [facility] [address] [place], [place] [address] documented as of this encounter Visit Diagnoses Not on filedocumented in this encounter Care Teams Electric Sign Wirer Relationship Specialty Start Date End Date Evans Casas MD [address] [place] [address] PCP - General Family Medicine 11/07/23 documented as of this encounter
--- OUTSIDE RECORDS SUMMARY | 2024-10-06 09:50 | XMS_ITS | Encounter Summary ---
Author Organization [facility] Address [address] [facility] [place] [address] Care Team Providers Care Converting Supervisor Name Role Phone Evans Casas MD Primary Care Provider [phone] Encounter Details Date Type Department Care Team (Late Contact Info) Description 07/07/2024 Abstract [facility] [address] [place] [address] Wilton Herrmann DO [facility] [address], [place] [address] Social History Tobacco Use Types Packs/Day Years [...] 10/20/2024 1:00 PM EDT Ancillary Procedure [facility] [place] [address] 10/27/2024 9:20 AM EDT Office Visit [facility] [place] [address] Wilton Herrmann DO [address] [place], [facility]11 10/30/2024 10:40 AM EDT Routine [facility] OB [address] [facility] [place] [address] Wilton Herrmann, [address] [facility] [address] [place], [place] [address] documented as of this encounter Visit Diagnoses Not on filedocumented in this encounter Care Teams Converting Supervisor Relationship Specialty Start Date End Date Evans Casas MD [address] [place] [address] PCP - General Family Medicine 11/07/23 documented as of this encounter
--- OUTSIDE RECORDS SUMMARY | 2024-10-06 09:50 | XMS_ITS | Encounter Summary ---
Author Organization [facility] Address [address] [facility] [place] [address] Care Team Providers Care Band Teacher Name Role Phone Evans Casas MD Primary Care Provider [phone] Encounter Details Date Type Department Care Team (Late Contact Info) Description 05/28/2024 Abstract [facility] [address] [place] [address] Wilton Herrmann DO [facility] [place], [place] [address] Social History Tobacco Use Types Packs/Day Years [...] 10/20/2024 1:00 PM EDT Ancillary Procedure [facility] [place] [address] 10/27/2024 9:20 AM EDT Office Visit [facility] [address] Wilton Herrmann DO [address] [place], [facility] 10/30/2024 10:40 AM EDT Routine [facility] OB [address] [facility] [place] [address] Wilton Herrmann, [address] [facility] [address] [place], [place] [address] documented as of this encounter Visit Diagnoses Not on filedocumented in this encounter Care Teams Band Teacher Relationship Specialty Start Date End Date Evans Casas MD [address] [place] [address] PCP - General Family Medicine 11/07/23 documented as of this encounter
--- OUTSIDE RECORDS SUMMARY | 2024-10-06 09:50 | XMS_ITS | Encounter Summary ---
Author Organization [facility] Address [address] [facility] [place] [address] Care Team Providers Care Monument Erector Name Role Phone Evans Casas MD Primary Care Provider [phone] Encounter Details Date Type Department Care Team (Late Contact Info) Description 02/25/2024 Abstract [facility] [address] [place] [address] Wilton Herrmann DO [facility] [place], [place] [address] Social History Tobacco Use Types Packs/Day Years [...] 10/20/2024 1:00 PM EDT Ancillary Procedure [facility] [place] [address] 10/27/2024 9:20 AM EDT Office Visit [facility] [place] [address] Wilton Herrmann DO [address] [place], [facility] 10/30/2024 10:40 AM EDT Routine [facility] OB [address] [facility] [place] [address] Wilton Herrmann, [address] [facility] [address] [place], [place] [address] documented as of this encounter Visit Diagnoses Not on filedocumented in this encounter Care Teams Monument Erector Relationship Specialty Start Date End Date Evans Casas MD [address] [place] [address] PCP - General Family Medicine 11/07/23 documented as of this encounter
--- OUTSIDE RECORDS SUMMARY | 2024-10-06 09:50 | XMS_ITS | Encounter Summary ---
Author Organization [facility] Address [address] [facility] [place] [address] Care Team Providers Care Social Worker Health Services Name Role Phone Evans Casas MD Primary Care Provider Encounter Details Date Type Department Care Team (Late Contact Info) Description 05/07/2024 Abstract [facility] [address] [place] [address] Wilton Herrmann DO [facility] [place], [place] [address] Social History Tobacco Use Types Packs/Day Years [...] 10/20/2024 1:00 PM EDT Ancillary Procedure [facility] [place] [address] 10/27/2024 9:20 AM EDT Office Visit [facility] [place] [address] Wilton Herrmann DO [address] [place], [facility]11 10/30/2024 10:40 AM EDT Routine [facility] OB [address] [facility] [place] [address] Wilton Herrmann, [address] [facility] [address] [place], [place] [address] documented as of this encounter Visit Diagnoses Not on filedocumented in this encounter Care Teams Social Worker Health Services Relationship Specialty Start Date End Date Evans Casas MD [address] [place] [address] PCP - General Family Medicine 11/07/23 documented as of this encounter
--- OUTSIDE RECORDS SUMMARY | 2024-10-06 09:50 | XMS_ITS | Encounter Summary ---
Author Organization [facility] Address [address] [facility] [place] [address] Care Team Providers Care Envelope Sealer Operator Name Role Phone Evans Casas MD Primary Care Provider [phone] Encounter Details Date Type Department Care Team (Late Contact Info) Description 05/12/2024 Abstract [facility] [address] [place] [address] Wilton Herrmann DO [facility] [place], [place] [address] Social History Tobacco Use Types Packs/Day Years [...] 10/20/2024 1:00 PM EDT Ancillary Procedure [facility] [place] [address] 10/27/2024 9:20 AM EDT Office Visit [facility] [place] [address] Wilton Herrmann DO [address] [place], [place] [address] 10/30/2024 10:40 AM EDT Routine [facility] OB [address] [facility] [place] [address] Wilton Herrmann, [address] [facility] [address] [place], [place] [address] documented as of this encounter Visit Diagnoses Not on filedocumented in this encounter Care Teams Envelope Sealer Operator Relationship Specialty Start Date End Date Evans Casas MD [address] [place] [address] PCP - General Family Medicine 11/07/23 documented as of this encounter
--- OUTSIDE RECORDS SUMMARY | 2024-10-06 09:50 | XMS_ITS | Encounter Summary ---
Author Organization [facility] Address [address] [facility] [place] [address] Care Team Providers Care Breast Surgeon Name Role Phone Evans Casas MD Primary Care Provider [phone] Encounter Details Date Type Department Care Team (Late Contact Info) Description 05/29/2024 Abstract [facility] [address] [place] [address] Wilton Herrmann DO [facility] [address] [place], [place] [address] Social History Tobacco Use Types Packs/Day Years [...] 10/20/2024 1:00 PM EDT Ancillary Procedure [facility] [place] [address] 10/27/2024 9:20 AM EDT Office Visit [facility] [place] [address] Wilton Herrmann DO [address] [place], [facility] 10/30/2024 10:40 AM EDT Routine [facility] [address] [facility] [place] [address] Wilton Herrmann, [address] [facility] [address] [place], [place] [address] documented as of this encounter Visit Diagnoses Not on filedocumented in this encounter Care Teams Breast Surgeon Relationship Specialty Start Date End Date Evans Casas MD [address] [place] [address] PCP - General Family Medicine 11/07/23 documented as of this encounter
--- OUTSIDE RECORDS SUMMARY | 2024-10-06 09:50 | XMS_ITS | Encounter Summary ---
Author Organization [facility] Address [address] [facility] [place] [address] Care Team Providers Care Silver Solderer Name Role Phone Evans Casas MD Primary Care Provider [phone] Encounter Details Date Type Department Care Team (Late Contact Info) Description 04/15/2024 Abstract [facility] [address] [place] [address] Wilton Herrmann DO [facility] [address] [place], [place] [address] Social History Tobacco Use Types Packs/Day Years [...] 10/20/2024 1:00 PM EDT Ancillary Procedure [facility] [address] 10/27/2024 9:20 AM EDT Office Visit [facility] [address] Wilton Herrmann DO [address] [place], [facility] 10/30/2024 10:40 AM EDT Routine [facility] [address] [facility] [place] [address] Wilton Herrmann, [address] [facility] [address] [place], [place] [address] documented as of this encounter Visit Diagnoses Not on filedocumented in this encounter Care Teams Silver Solderer Relationship Specialty Start Date End Date Evans Casas MD [address] [place] [address] PCP - General Family Medicine 11/07/23 documented as of this encounter
--- OUTSIDE RECORDS SUMMARY | 2024-10-06 09:50 | XMS_ITS | Encounter Summary ---
Author Organization [facility] Address [address] [facility] [place] [address] Care Team Providers Care Grinding Wheel Inspector Name Role Phone Penelope Casas MD Primary Care Provider [phone] Encounter Details Date Type Department Care Team (Late Contact Info) Description 05/10/2024 Clinisync Result Encounter [facility] External Department Unsolicited Mya Herrmann DO [facility] [address] [place], [place] [id number] Social History Tobacco Use Types Packs/Day Years [...] Procedure [facility] [address] [place] [address] 10/27/2024 9:20 AM EDT Office Visit [place] [address] Mya Herrmann DO [address] [place] [address] 10/30/2024 10:40 AM EDT Routine [facility] [address] [facility] [place] [address] Mya Herrmann, [address] [facility] [place] [address] documented as of this encounter Procedures Procedure Name Priority Date/Time Associated Diagnosis Comments US PELVIS 05/10/2024 4:02 PM EST PROTEIN S-ANTIGEN Routine 05/10/2024 8:4 4 AM EST PROTEIN C-FUNCTIONAL Routine 05/10/2024 8:44 AM EST FACTOR V LEIDEN MUTATION Routine 05/10/2024 8:44 AM EST [facility] ANTITHROMBIN ACTIVITY Routine 05/10/2024 8:44 AM EST METRO HOMOCYSTEINE Routine 05/10/2024 8: 44 AM EST ALL MISCELLANEOUS TEST Routine 8:44 AM EST ALL IMMUNOGLOBULIN M Routine 05/10/2024 8:44 AM EST ALL IMMUNOGLOBULIN G Routine 05/10/2024 8:44 AM EST documented in this encounter Results * US PELVIS (05/10/2024 4:02 PM EST) Anatomical Region Laterality Modality Other 05/10/2024 4:02 PM EST Narrative 05/10/2024 4:04 PM EST [address] [address] Ultrasound Report Signed Patient: MADHU RENDON MR#: [id number] : 1985 Acct:[id number] Age/Sex: 38 / F ADM Date: Loc: [facility] 258-[address]: Mya Herrmann D.O. Ordering Physician: Mya Herrmann D.O. Date of Service: 05/10/24 Procedure(s): US pelvis Accession Number(s): [id number] cc: Mya Herrmann D.O.; PENELOPE CASAS [place] [id number] Patient Name: MADHU RENDON MRN: [id number] date: 1985 Sex: F Assigned Patient Location: [facility] Current Patient Location: [facility] Accession/Order Number: [id number] Exam Date: 05/10/2024 14:36 Report Date: 05/10/2024 16:02 At the request of: MYA HERRMANN Procedure: US pelvis EXAMINATION: US pelvis HISTORY: post delivery for demise induction COMPARISON: No relevant comparison available. TECHNIQUE: Transabdominal and/or transvaginal sonographic examination was performed as indicated by examination type. FINDINGS: UTERUS: No retained products of conception. US/US pelvis IMPRESSION: 1. No retained products of conception. Electronically authenticated by: PASCUAL RILEY Date: 05/10/2024 16:02 Dictated By: Pascual Riley M.D. Signed By: 05/10/24 1604 DD/ 1602 TD/TT: Celluloid Trimmer: Procedure Note Radiology, Radiologist, MD - 05/10/2024 [place] [address] Ultrasound Report Signed Patient: MADHU RENDON SMR#: [id number] : 1985Acct:[id number] Age/Sex: 38 / FADM Date: Loc: [facility] [address]: Mya Herrmann D.O. Ordering Physician: Mya Herrmann D.O. Date of Service: 05/10/24 Procedure(s): US pelvis Accession Number(s): [id number] cc: Mya Herrmann D.O.; PENELOPE CASAS [place] [id number] Patient Name: MADHU RENDON MRN: [id number] date: 1985 Sex: F Assigned Patient Location: [facility] Current Patient Location: [facility] Accession/Order Number: [id number] Exam Date: 05/10/2024 14:36 Report Date: 05/10/2024 16:02 At the request of: MYA HERRMANN Procedure: US pelvis EXAMINATION: US pelvis HISTORY: post delivery for demise induction COMPARISON: No relevant comparison available. TECHNIQUE: Transabdominal and/or transvaginal sonographic examination was performed as indicated by examination type. FINDINGS: UTERUS: No retained products of conception. US/US pelvis IMPRESSION: 1. No retained products of conception. Electronically authenticated by: PASCUAL RILEY Date: 05/10/2024 16:02 Dictated By: Pascual Riley M.D. Signed By:05/10/24 1604 DD/ 01 TD/TT: Celluloid Trimmer: us Mya Herrmann DO [facility] Final Result * FACTOR V LEIDEN MUTATION (05/10/2024 8:44 AM EST) Pathologist [facility] FACTOR V LEIDEN MUTATION Comment . [facility] Comment: Result: c.1601G>A (p.Isn001Qln) - Not Detected This result is not associated with an increased risk for venous thromboembolism. See Additional Clinical Information and Comments. Additional Clinical Information: Venous thromboembolism is a multifactorial disease influenced by genetic, environmental, and circumstantial risk factors. The c.1601G>A (p. [id number]) variant in the F5 gene, commonly referred to as Factor V Leiden, is a genetic risk factor for venous thromboembolism. Heterozygous carriers of this variant have a 6- to 8-fold increased risk for venous thromboembolism. Individuals homozygous for this variant (ie, with a copy of the variant on each chromosome) have an approximately 80-fold increased risk for venous thromboembolism. Individuals who carry both a c.*97G>A variant in the F2 gene and Factor V Leiden have an approximately 20-fold increased risk for venous thromboembolism. Risks are likely to be even higher in more complex genotype combinations involving the F2 c.*97G>A variant and Factor V Leiden (PMID: 17828063). Additional risk factors include but are not limited to: deficiency of protein C, protein S, or antithrombin III, age, male sex, personal or family history of deep vein thromboembolism, smoking, surgery, prolonged immobilization, malignant neoplasm, tamoxifen treatment, raloxifene treatment, oral contraceptive use, hormone replacement therapy, and . Management of thrombotic risk and thrombotic events should follow established guidelines and fit the clinical circumstance. This result cannot predict the occurrence or recurrence of a thrombotic event. Comment: Genetic counseling is recommended to discuss the potential clinical implications of positive results, as well as recommendations for testing family members. Genetic Coordinators are available for health care providers to discuss results at [phone]). Test Details: Variant Analyzed: c.1601G>A (p. [id number]), referred to as Factor V Leiden Methods/Limitations: DNA analysis of the F5 gene (NM_000130.5) was performed by PCR amplification followed by restriction enzyme analysis. The diagnostic sensitivity is >99%. Results must be combined with clinical information for the most accurate interpretation. Molecular-based testing is highly accurate, but as in any laboratory test, diagnostic errors may occur. False positive or false negative results may occur for reasons that include genetic variants, blood transfusions, bone marrow transplantation, somatic or tissue-specific mosaicism, mislabeled samples, or erroneous representation of family relationships. This test was developed and its performance characteristics determined by [employer]. It has not been cleared or approved by the Food and Drug Administration. References: Jomar S, Loren AK, Thiago R, Solo WW, Jose JH; ACMG Professional Practice and Guidelines Committee. Addendum: [place] [employer] consensus statement on factor V Leiden mutation testing. Nisha Med. 2020Jul 02. doi: 10.1038/q32415-800-79186-n. PMID: 35914553. Naina POWERS. Factor V Leiden Thrombophilia. 1998September 10 (Updated 2017May 03). In: Emeterio MP, Radha HH, Clayton RA, et al., editors. Cassie(R) (Internet). [place] (MD): [facility]; 8791-5503. Available from: https://www.ncbi.nlm.nih.gov/books/ZSO7880/ Hudson S, Loren AK, Trent X, Margarito B, Jo-Ann EB, Lena P, Rhiannon CS; AC Laboratory Fabric Normalizer Committee. Venous thromboembolism laboratory testing (factor V Leiden and factor II c.*97G>A), 2018 update: a technical standard of the [place] [employer] and Genomics (ACMG). Nisha Med. 2018 Mar;20(12):8424-7896. doi: 10.1038/d13340-652-3602-m. Epub 2017Feb 01. PMID: 70727897. [facility] REVIEWED BY Comment . [facility] Comment: Technical Component performed at [employer] RT Professional Component performed by: [place] Rosa Isela Lee, Ph.D., [facility] Director, Molecular Genetics [address] [facility] Performed at: - [employer] RTP [address] [place], [place] [id number] Pediatric Neuropsychologist: Kolton Storm [facility], Phone: [phone] 05/10/2024 8:44 AM EST 05/10/2024 8:52 AM EST [facility] - 05/15/2024 2:08 PM EST Mya Herrmann DO LAB BLOOD ORDERABLES Final Resul t [facility] * ALL MISCELLANEOUS TEST (05/10/2024 8:44 AM EST) Pathologist [facility] MISCELLANEOUS TEST COMMENT . [facility] Comment: Test Ordered: [id number] , ID Ab Cytomegalovirus (CMV) Ab, IgG 6.20 [H ] U/mL CB Reference Range: 0.00-0.59 Negative <0.60 Equivocal 0.60 - 0.69 Positive >0.69 Cytomegalovirus (CMV) Ab, IgM <30.0 AU/mL CB Reference Range: 0.0-29.9 Negative <30.0 Equivocal 30.0 - 34.9 Positive >34.9 A positive result is generally indicative of acute infection, reactivation or persistent IgM production. Toxoplasma gondii Ab,IgG <3.0 IU/mL CB Reference Range: 0.0-7.1 Negative <7.2 Equivocal 7.2 - 8.7 Positive >8.7 Toxoplasma gondii Ab,IgM <3.0 AU/mL CB Reference Range: 0.0-7.9 Negative <8.0 Equivocal 8.0 - 9.9 Positive >9.9 Comments Comment Reference Range: . No serological evidence of infection with Toxoplasma. If symptoms persist, submit a new specimen after three weeks. Parvovirus B19, IgG 1.3 [H ] index Reference Range: 0.0-0.8 Negative <0.9 Equivocal 0.9 - 1.1 Positive >1.1 Parvovirus B19, IgM 0.1 index Reference Range: 0.0-0.8 Negative <0.9 Equivocal 0.9 - 1.1 Positive >1.1 Performed at: [address] [id number] Pediatric Neuropsychologist: Dusty Miles PhD, Phone: [phone] Performed at: [address] [id number] Pediatric Neuropsychologist: China Ching MD, Phone: [phone] 05/10/2024 8:44 AM EST 05/10/2024 10:27 AM EST Narrative [facility] - 05/13/2024 3:11 PM EST [id number] , Infectious Disease Antibody Profile Mya Montez DO [facility] Final Result Performing Organization Address City/State/[facility] Co de Phone Number [facility] * (ABNORMAL) [facility] ANTITHROMBIN ACTIVITY (05/10/2024 8:44 AM EST) Pathologist [facility] ANTITHROMBIN ACTIVITY 141(A) 75 - 135 % [facility] Comment: An elevated antithrombin activity is of no known clinical significance. Direct Xa inhibitor anticoagulants such as rivaroxaban, apixaban and edoxaban will lead to spuriously elevated antithrombin activity levels possibly masking a deficiency. Performed at: [address] [id number] Pediatric Neuropsychologist: China Ching MD, Phone: [phone] 05/10/2024 8:44 AM EST 05/10/2024 8:52 AM EST Narrative [facility] - 05/12/2024 2:08 PM EST [facility] Montez DO CLINISY[facility] Final Result Performing Organization Address [facility] Co mi Phone Number [facility] * PROTEIN S-ANTIGEN (05/10/2024 8:44 AM EST) PROTEIN S, TOTAL 96 60 - 150 % [facility] Comment: This test was developed and its performance characteristics determined by [facility]. It has not been cleared or approved by the Food and Drug Administration. PROTEIN S, FREE 112 61 - 136 % [facility] 05/10/2024 8:44 AM EST 05/10/2024 9:48 AM EST Narrative [facility] - 05/12/2024 2:08 PM EST [facility] LAB BLOOD ORDERABLES Final Resul t Performing Organization Address [facility] Phone Number [facility] * PROTEIN C-FUNCTIONAL (05/10/2024 8:44 AM EST) Pathologist [facility] PROTEIN C-FUNCTIONAL 166 73 - 180 % [facility] Comment: Performed at: [address] [id number] Pediatric Neuropsychologist: China Ching MD, Phone: [phone] 05/10/2024 8:44 AM EST 05/10/2024 9:48 AM EST Narrative [facility] - 05/12/2024 2:08 PM EST [facility] LAB BLOOD ORDERABLES Final Resul t Performing Organization Address [facility] de Phone Number [facility] * METRO HOMOCYSTEINE (05/10/2024 8:44 AM EST) HOMOCYST(E)INE 5.8 0.0 - 14.5 umol/L [facility] 05/10/2024 8:44 AM EST 05/10/2024 8:52 AM EST Narrative [facility] - 05/11/2024 7:08 AM EST Mya Montez DO [facility] Final Result Performing Organization Address [facility] Phone Number [facility] * ALL IMMUNOGLOBULIN G (05/10/2024 8:44 AM EST) [facility] IMMUNOGLOBULIN G, QN 913 586 - 1602 mg/dL TB Comment: Performed at: [address] [id number] Pediatric Neuropsychologist: Dusty Miles PhD, Phone: [phone] 05/10/2024 8:44 AM EST 05/10/2024 8:52 AM EST Narrative [facility] - 05/11/2024 7:08 AM EST Mya Montez DO [facility] Final Result Performing Organization Address [facility] Phone Number [facility] * ALL IMMUNOGLOBULIN M (05/10/2024 8:44 AM EST) [facility] IMMUNOGLOBULIN M, Q 177 26 - 217 mg/dL [facility] Comment: Performed at: [address] [id number] Pediatric Neuropsychologist: Dusty Miles PhD, Phone: [phone] 05/10/2024 8:44 AM EST 05/10/2024 8:52 AM EST Narrative [facility] - 05/11/2024 7:08 AM EST Mya Montez DO [facility] Final Result Performing Organization Address [facility] de Phone Number [facility] documented in this encounter Visit Diagnoses Not on filedocumented in this encounter Care Teams Grinding Wheel Inspector Relationship Specialty Start Date End Date Penelope Casas MD [address] [place] [address] PCP - General Family Medicine 7/10/24 documented as of this encounter
--- OUTSIDE RECORDS SUMMARY | 2024-10-06 09:50 | XMS_ITS | Encounter Summary ---
Author Organization [facility] Address [address] [facility] [place] [address] Care Team Providers Care Trimmer Loader Name Role Phone Evans Casas MD Primary Care Provider [phone] Encounter Details Date Type Department Care Team (Late st Contact Info) Description 01/10/2024 Abstract [facility] [address] [place] [address] rAiane Joseph LPN [address] [place] [address] Social History Tobacco Use Types Packs/Day Years [...] 10/20/2024 1:00 PM EDT Ancillary Procedure [facility] [address] [place] [address] 10/27/2024 9:20 AM EDT Office Visit [facility] OB [address] [place] [address] [place] [address] Wilton Herrmann DO [address] [place] [address] [place] [address] 10/30/2024 10:40 AM EDT Routine [facility] [address] [facility] [address] [place] [address] Wilton Herrmann, [address] [facility] [address] [place], [place] [address] documented as of this encounter Visit Diagnoses Not on filedocumented in this encounter Care Teams Trimmer Loader Relationship Specialty Start Date End Date Evans Casas MD [address] [place] [address] PCP - General Family Medicine 11/07/23 documented as of this encounter
--- OUTSIDE RECORDS SUMMARY | 2024-10-06 09:50 | XMS_ITS | Encounter Summary ---
Author Organization [facility] Address [address] [facility] [place] [address] Care Team Providers Care Event Host Name Role Phone Evans Casas MD Primary Care Provider [phone] Encounter Details Date Type Department Care Team (Late Contact Info) Description 04/17/2024 Abstract [facility] [address] [place] [address] Wilton Herrmann DO [facility] [address], [place] [address] Social History Tobacco Use Types Packs/Day Years [...] PM EDT Ancillary Procedure [facility] [address] 10/27/2024 9:20 AM EDT Office Visit [facility] [place] [address] Wilton Herrmann DO [address] [place], [facility] 10/30/2024 10:40 AM EDT Routine [facility] [address] [facility] [place] [address] Wilton Herrmann, [address] [facility] [address] [place], [place] [address] documented as of this encounter Visit Diagnoses Not on filedocumented in this encounter Care Teams Event Host Relationship Specialty Start Date End Date Evans Casas MD [address] [place] [address] PCP - General Family Medicine 11/07/23 documented as of this encounter
--- OUTSIDE RECORDS SUMMARY | 2024-10-06 09:50 | XMS_ITS | Encounter Summary ---
Author Organization [facility] Address [address] [place] [address] Care Team Providers Care Health And Safety Technician Name Role Phone Humaira Gaviria (Historical) Primary Care Provi loyda Humaira Gaviria MD Primary Care Provider [phone] Jonny Wilcox MD Unavailable [phone] Jonny Wilcox MD Unavailable [phone] Cosmo Elliott MD Unavailable [phone] Davida Restrpeo RN Unavailable [phone] Evans Casas DO Primary Care Provider [phone] Source Comments In the event this information is protected by the Federal Confidentiality of Alcohol and Drug AbusePatient Records regulations: The Federal rules restrict any use of the information to criminally investigate or prosecute any alcohol or drug abuse patient.[facility] Encounter Details Date Type Department Care Team (Late st Contact Info) Description 05/01/2018 Patient Msg Endocrinology [address] [place] [address] Provider, [facility] Upcoming Endocrinology Appointment on 05/06/18 Social History Tobacco Use Types Packs/Day Years Used Date Smoking Tobacco: Never Smokeless Tobacco: Never Alcohol Use Standard Drinks/Week Comments No 0 [...] file Not on file Not on file documented as of this encounter Plan of Treatment Upcoming Encounters Date Type Department Care Team (Latest Contact Info) Description 10/10/2024 10:15 AM EDT Office Visit [facility] [address] [place] [address] [place] [address] labs - patient prefers to come same day 10/10/2024 10:40 AM EDT Visit (SP) Office Hematology/Oncology [address] [place] [address] [place] [address] Salvador Dos Santos MD [address] [address] 3 month follow up documented as of this encounter Visit Diagnoses Not on filedocumented in this encounter Care Teams Health And Safety Technician Relationship Specialty Start Date End Date Humaira Gaviria (Historical)MD [address] [place] [address] PCP - General Family Medicine 12/28/17 07/04/18 Humaira Gaviria MD [address] [place] [address] PCP - General Internal Medicine 07/05/18 01/29/22 Evans Casas DO [address] [place] [address] PCP - General Family Medicine 01/30/22 Jonny Wilcox MD [address] [place] [address] Primary Staff Physician Cardiology 07/16/18 Jonny Wilcox MD [address] [place] [address] Primary Staff Physician Cardiology 07/16/18 [place] [address] [place] [address] Physician Hematology/Oncology 09/14/21 Davida Restrepo, RN [address] [place] [address] Specialty Softwood Faller Hematology/Oncology 09/14/21 documented as of this encounter
--- OUTSIDE RECORDS SUMMARY | 2024-10-06 09:50 | XMS_ITS | Encounter Summary ---
Author Organization [facility] Address [address] [facility] [place] [address] Care Team Providers Care Water Pump Assembler Name Role Phone Evans Casas MD Primary Care Provider [phone] Encounter Details Date Type Department Care Team (Late Contact Info) Description 09/01/2024 Abstract [facility] [address] [place] [address] Wilton Herrmann DO [facility] [address] [place], [place] [address] Social History Tobacco Use Types Packs/Day Years [...] 10/20/2024 1:00 PM EDT Ancillary Procedure [facility] [place] [address] 10/27/2024 9:20 AM EDT Office Visit [facility] [place] [address] Wilton Herrmann DO [address] [place], [facility] 10/30/2024 10:40 AM EDT Routine [facility] [address] [facility] [place] [address] Wilton Herrmann, [address] [facility] [address] [place], [place] [address] documented as of this encounter Visit Diagnoses Not on filedocumented in this encounter Care Teams Water Pump Assembler Relationship Specialty Start Date End Date Evans Casas MD [address] [place] [address] PCP - General Family Medicine 11/07/23 documented as of this encounter
--- OUTSIDE RECORDS SUMMARY | 2024-10-06 09:50 | XMS_ITS | Encounter Summary ---
Author Organization [facility] Address [address] [place] [address] Care Team Providers Care Pipeline Systems Operator Name Role Phone Humaira Gaviria MD Primary Care Provider [phone] Jonny Wilcox MD Unavailable [phone] Cosmo Elliott MD Unavailable [phone] Davida Restrepo RN Unavailable [phone] Evans Casas DO Primary Care Provider [phone] Source Comments In the event this information is protected by the Federal Confidentiality of Alcohol and Drug AbusePatient Records regulations: The Federal rules restrict any use of the information to criminally investigate or prosecute any alcohol or drug abuse patient.[facility] Encounter Details Date Type Department Care Team (Late st Contact Info) Description 02/02/2021 Patient Msg Referring Physician [address] [place] [phone] Provider, [facility] CONSULT TO INFECTIOUS DISEASE Social History Tobacco Use Types Packs/Day Years Used Date Smoking Tobacco: Never Smokeless Tobacco: Never Alcohol Use Standard Drinks/Week Comments No 0 (1 standard drink = 0.6 oz pur e alcohol) PHQ-2 Answer Date Recorded PHQ-2 score 0 02/02/2020 Area Deprivation Index Answer Date Rayo rded National Score (1-100), lower number is lower ri sk Not on file 04/07/2020 State Score (1-10), lower number is lower risk N ot on file 04/07/2020 Data from: https://www.neighborhoodatlas.medicine.[facility].edu/. Last address used for calculation Not on file 04/07/2020 Comments No Sex and Gender Information Value [...] Description 10/10/2024 10:15 AM EDT Office Visit [facility] [address] [place] [address] [place] [address] labs - patient prefers to come same day 10/10/2024 10:40 AM EDT Visit (SP) Office Hematology/Oncology [address] [place] [address] [place] [address] Salvador Dos Santos MD [address] [place] [address] [place] [address] 3 month follow up documented as of this encounter Visit Diagnoses Not on filedocumented in this encounter Care Teams Pipeline Systems Operator Relationship Specialty Start Date End Date Humaira Gaviria MD [address] [place] [address] PCP - General Internal Medicine 07/05/18 01/29/22 Evans Casas DO [address] [facility] [place] [address] PCP - General Family Medicine 01/30/22 Jonny Wilcox MD [address] [place] [address] Primary Staff Physician Cardiology 07/16/18 [place] [address] [place] [address] Physician Hematology/Oncology 09/14/21 Davida Restrepo, RN [address] [place] [address] Specialty Derrick Hand Hematology/Oncology 09/14/21 documented as of this encounter
--- OUTSIDE RECORDS SUMMARY | 2024-10-06 09:50 | XMS_ITS | Encounter Summary ---
Author Organization [facility] Address [address] [facility] [place] [address] Care Team Providers Care Income Tax Advisor Name Role Phone Evans Casas MD Primary Care Provider [phone] Encounter Details Date Type Department Care Team (Late Contact Info) Description 04/15/2024 Abstract [facility] [address] [place] [address] Wilton Herrmann DO [facility] [address] [place], [place] [address] Social History Tobacco Use Types Packs/Day Years [...] 10/20/2024 1:00 PM EDT Ancillary Procedure [facility] [place] [address] 10/27/2024 9:20 AM EDT Office Visit [facility] [place] [address] Wilton Herrmann DO [address] [place], [id number] 10/30/2024 10:40 AM EDT Routine [facility] [address] [facility] [place] [place] [address] Wilton Herrmann, [address] [facility] [address] [place], [place] [id number] documented as of this encounter Visit Diagnoses Not on filedocumented in this encounter Care Teams Income Tax Advisor Relationship Specialty Start Date End Date Evans Casas MD [address] [place] [address] PCP - General Family Medicine 11/07/23 documented as of this encounter
--- OUTSIDE RECORDS SUMMARY | 2024-10-06 09:50 | XMS_ITS | Encounter Summary ---
Author Organization [facility] Address [address] [facility] [place] [address] Care Team Providers Care Care Transitions Nurse Name Role Phone Evans Casas MD Primary Care Provider [phone] Encounter Details Date Type Department Care Team (Late Contact Info) Description 02/28/2024 Abstract [facility] [address] [place] [address] Wilton Herrmann DO [facility] [address] [place], [place] [address] Social History Tobacco Use Types Packs/Day Years [...] 10/20/2024 1:00 PM EDT Ancillary Procedure [facility] [place] [address] 10/27/2024 9:20 AM EDT Office Visit [facility] [place] [address] Wilton Herrmann DO [address] [place], [facility] 10/30/2024 10:40 AM EDT Routine [facility] [address] [facility] [place] [address] Wilton Herrmann, [address] [facility] [address] [place], [place] [id number] documented as of this encounter Visit Diagnoses Not on filedocumented in this encounter Care Teams Care Transitions Nurse Relationship Specialty Start Date End Date Evans Casas MD [address] [place] [address] PCP - General Family Medicine 11/07/23 documented as of this encounter
[2024-10-06 10:30] LABS: Basophils Percent Auto 0.2 % (0.2-2.0); Eosinophils Percent Auto 0.4 % (0.9-7.0); Hematocrit 38.1 % (36.0-48.0); Hemoglobin 13.2 g/dL (12.0-16.0); Immature Granulocytes Abs Auto 0.03 10^3/uL (0.00-0.03); Immature Granulocytes Pct Auto 0.3 % (0.0-0.5); Lymphocytes Absolute Auto 2.6 10^3/uL (1.2-3.8); Lymphocytes Percent Auto 29.1 % (20.5-60.0); Mean Corpuscular HGB Conc 34.6 g/dL (29.9-35.2); Mean Corpuscular Hemoglobin 29.9 pg (26.7-34.0); Mean Corpuscular Volume 86.2 fL (81.0-99.0); Mean Platelet Volume 10.1 fL (9.5-13.5); Monocytes Absolute Auto 0.6 10^3/uL (0.3-0.8); Monocytes Percent Auto 7.2 % (1.7-12.0); Neutrophils Absolute Auto 5.6 10^3/uL (1.4-6.5); Neutrophils Percent Auto 62.8 % (43.0-75.0); Platelet Count 309 10^3/uL (150-450); Red Blood Count 4.42 10^6/uL (4.20-5.40); White Blood Count 8.9 10^3/uL (4.0-11.0)
[2024-10-06 10:34] LABS: BOX Test Reference Lab UNITY; BOX Test Sent Out UNITY
[2024-10-06 10:48] LABS: Amphetamine Screen Urine NEGATIVE (NEGATIVE); Barbiturates Screen Urine NEGATIVE (NEGATIVE); Benzodiazepines Screen Urine NEGATIVE (NEGATIVE); Buprenorphine Screen Urine NEGATIVE (NEGATIVE); Cannabinoid Screen Urine NEGATIVE (NEGATIVE); Cocaine Screen Urine NEGATIVE (NEGATIVE); Methadone Screen Urine NEGATIVE (NEGATIVE); Methamphetamines Screen Urine NEGATIVE (NEGATIVE); Opiate Screen Urine NEGATIVE (NEGATIVE); Oxycodone Screen Urine NEGATIVE (NEGATIVE); Phencyclidine Screen Urine NEGATIVE (NEGATIVE); Tricyclic Antidepressant Urine NEGATIVE (NEGATIVE)
[2024-10-06 11:46] LABS: Thyroid Stimulating Hormone 1.131 uIU/mL (0.358-3.740)
[2024-10-06 12:14] LABS: Estimated Average Glucose 123 mg/dL; Glycohemoglobin A1C 5.9 % (4.5-6.2)
[2024-10-07 05:07] LABS: HIV Ab/p24 Ag Screen Non Reactive (Non Reactive)
[2024-10-07 06:08] LABS: HBsAg Screen Negative (Negative); HCV Ab Non Reactive (Non Reactive)
[2024-10-07 10:08] LABS: Rubella Antibodies, IgG <0.90 index (Immune >0.99)
[2024-10-07 12:08] LABS: Rapid Plasma Reagin, Quant Non Reactive titer (NonRea<1:1)
== END 2024-10-06 09:45 | disposition home or self-care (01) ==
LOC: LAB 09:47
PROVIDERS: PCP Family Medicine; Visit Provider Obstetrics & Gynecology
DX: Z34.01 Encounter for supervision of normal first pregnancy, first trimester (principal); Z36.0 Encounter for antenatal screening for chromosomal anomalies; E07.9 Disorder of thyroid, unspecified; N92.6 Irregular menstruation, unspecified
CPT/HCPCS: 36415; 80307; 83036; 84443; 85025; 86592; 86762; 86803; 86850; 86900; 86901; 87086; 87340; 87389

== ENCOUNTER 2024-12-11 10:29 | Outpatient (OUT) | payer MEDICAID, SELFPAY ==
--- OUTSIDE RECORDS SUMMARY | 2024-12-03 14:00 | XMS_ITS | Encounter Summary ---
Author Organization [facility] tem Address [id number] [address] [place] [address] Care Team Providers Care Automatic Bow Maker Machine Tender Name Role Phone Evans Casas DO Primary Care Provider [phone] Encounter Details Date Type Department Care Team (Late st Contact Info) Description 12/03/2024 2:00 PM EDT Telemedicine Maternal- Medicine at [facility] [address] [place] [phone] Alisa Saba APRN-ENTERTAINMENT USHER [address] [place] [address] Insulin controlled gestational diabetes mellitus (GDM) in second trimester (Primary Dx) Social History Tobacco Use Types Packs/Day Years Used Date Smoking Tobacco: Never Smokeless Tobacco: Never Alcohol Use Standard Drinks/Week Comments Not Currently 0 (1 standard drink = 0.6 oz pur e alcohol) Childcare Answer Date Recorded Childcare Unknown 11/27/2018 Employment Answer Date Recorded Employment Unknown 11/27/2018 Purpose - Life Answer Date Recorded Purpose and direction in life Unknown Estimated Date of Delivery Comme nts Yes 05/04/2025 Based on last me nstrual period of 07/28/2024 Sex and Gender Information Value Date Recorded Sex Assigned at Not on file Legal Sex Female 12:25 PM EDT Gender Identity Not on file Sexual Orientation Not on file documented as of this encounter Progress Notes * BRENNEN Guillen - 12/03/2024 2:00 PM EDT REASON FOR OFFICE VISIT: Med start 1. GDMA2; A1c 5.9% 2. On Metformin since 4th child 3. Hx GDMA2 4. AMA - cf DNA low risk boy HISTORY OF PRESENT ILLNESS: Sanna Bone is a pleasant 39 y.o. at 18w2d due on Estimated Date of Delivery: 05/04/25. The patient is concerned about starting insulin. She is being followed at [facility] due to GDMA2. States she is following meal plan as much as possible and eating evening snack. FBS - 93 -124 1 HR Postprandial - 76 -109 Past Medical History PAST OBSTETRICAL HISTORY: OB History 7 Para 3 Term 3 AB 3 Living 3 SAB 3 IAB Ectopic Multiple Live Births 3 SURGICAL HISTORY: Past Surgical History: Procedure Laterality Date BREAST BIOPSY 2013 PELVIC LAPAROSCOPY WISDOM TOOTH EXTRACTION 2006 ALLERGIES: Allergies Allergen Reactions Ciprofloxacin Dizziness Lactose GI Disturbance Diarrhea Lactalbumin Other (See Comments) Other reaction(s): GI Upset Crampy and gassy Milk Containing Products (Dairy) Other (See Comments) Crampy and gassy CURRENT MEDICATIONS: Current Outpatient Medications: alcohol swabs pads, medicated, Apply 1 each topically in the morning and 1 each at noon and 1 each in the evening and 1 each before bedtime. Clean off finger before testing blood glucose., Disp: , Rfl: azithromycin (ZITHROMAX) 250 mg tablet, Take 1 tablet (250 mg total) by mouth in the morning. Take 2 tablets the first day, then 1 tablet daily for 4 days., Disp: , Rfl: blood sugar diagnostic (glucose blood) strip, 1 strip by other route as needed for low blood sugar or high blood sugar. Use to check blood sugar 4 times daily, Disp: , Rfl: blood-glucose meter (BLOOD GLUCOSE MONITORING) kit, 1 each by other route in the morning. Use to check blood sugar 4 times daily ., Disp: , Rfl: CEPHalexin (KEFLEX) 500 mg capsule, Take 1 capsule (500 mg total) by mouth in the morning and 1 capsule (500 mg total) at noon and 1 capsule (500 mg total) in the evening and 1 capsule (500 mg total)before bedtime., Disp: , Rfl: docusate sodium (COLACE) 100 mg capsule, Take 100 mg by mouth daily., Disp: , Rfl: lancets misc, 1 each in the morning and 1 each at noon and 1 each in the evening and 1 each before bedtime. Use to check blood sugar 4 times daily., Disp: , Rfl: levothyroxine (SYNTHROID) 25 MCG tablet, Take 25 mcg by mouth daily., Disp: , Rfl: metFORMIN XR (GLUCOPHAGE XR) 500 mg 24 hr tablet, Take 1 tablet (500 mg total) by mouth daily with breakfast., Disp: , Rfl: polyethylene glycol (GLYCOLAX) 17 gram packet, Take 17 g by mouth daily., Disp: , Rfl: 19 29 mg iron- 1 mg tablet,chewable, Chew 1 tablet and swallow daily., Disp: , Rfl: 6 progesterone (PROMETRIUM) 200 mg capsule, Take 1 capsule (200 mg total) by mouth in the morning., Disp: , Rfl: LABS: No results found for: GLUF , MICROALBUR , LDLCALC , CREATININE Lab Results Component Value Date TSH 1.25 10/28/2024 No results found for: [id number] No results found for: CREATININE , BUN , NA , K , CL , CO2 No results found for: ALT , AST , GGT , ALKPHOS , LABBILI Lab Results Component Value Date HGBA1C 5.9 10/06/2024 REVIEW OF SYSTEMS: Head and Neck: Negative for any dizziness and headaches. Cardiovascular and Respiratory System: Denies any chest pain, shortness of breath, and coughing. Abdominal and System: Denies any abdominal pain, nausea, vomiting, vaginal bleeding, and vaginal discharge PHYSICAL EXAMINATION: LMP 07/28/2024 . Gravid abdomen, Alert & Oriented. Respirations not labored. DISCUSSION: Hyperglycemia Importance of good blood sugar control was emphasized. The potential effects of uncontrolled diabetes before and during on herself were discussed including: preeclampsia, induced hypertension, labor, C- section, and polyhydramnios. Potential effects on baby were explained: stillbirth, miscarriage, macrosomia, jaundice, trauma, hypoglycemia, respiratory distress and hypocalcemia. Long-term risk to offspring from poor maternal glycemic control include: obesity, cardiovascular disease, impaired glucose tolerance and Type 2 diabetes. Medication initiation Initiation of medication: When diet and exercise fail to maintain normal blood glucose level, medication therapy is indicated. Medication is initiated when > 20% of the blood glucose values in oneweek are out of range, or BG values are repeatedly elevated a specific time of day; and meal plan or activity cannot be modified to correct elevated blood glucose. Oral vs. SQ treatment Discussed oral hyperglycemic agent Metformin. Explained this medication does cross the placenta andreach the baby. Little research has been done on exterminator helper effects of Metformin exposure to the fetus. We do use in with every effort to minimize exposure. Also discussed possible GI side effects from this medication. Discussed insulin which does not cross the placenta, nor have the GI side effects like Metformin. Insulin is the recommended first line of treatment for diabetes in . Insulin administration Patient was instructed on: action of prescribed insulin, when to take prescribed doses in relation to daily schedule/meals, use of an insulin pen, how to given an injection into the sub-Q tissues with recommendation on use of abdomen, rotation of injections within designated site, proper disposal of sharps, and hypoglycemia. Patient education materials emailed: insulin action chart, hypoglycemia management, proper disposal of sharps, and procedure guide sheet for use of an insulin pen. Recommended carbohydrate allocation ranges: 30-45 g for breakfast, 45-60 g for lunch and dinner, and 15-g snacks roughly 2-3 hours after each meal. A1c less than 6% has the lowest risk for LGA infant SUMMARY/RECOMMENDATION: The following is a summary of our recommendations: 1. Blood work: Not at baseline 2. Medication: Lantus 4 units Other medications as above 3. testin wk anatomy scan with echo Twice weekly NSTw/ weekly DVP at 32 weeks growth ultrasounds every 4 weeks starting at 28 weeks 4. Delivery timing: Consider planned delivery btw 39/0-39/6 weeks or before if indicated Use 1/2 dose of insulin the night before her planned delivery. GDMA2: may monitor patient's BG every 4hrs during latent labor, every 1 hr during active labor withgoal BG to be less than 140 mg/dl. Can use insulin sliding scale prn hyperglycemia. No need for insulin use the day of her delivery 5. Post : As she has only gestational diabetes, there is no need for glucose testing or medication after her delivery. Please obtain a 2-hour GTT directly while still hospitalized after delivery or 4-12 weeks out patient and then A1c yearly as the patient has a 20% risk of having or developing diabetes later on. 6. Follow-up appointment: In 2 weeks to Maternal- Medicine. I asked her to keep sending values to us weekly by e-mail to: [email or web address] or by fax to: [phone] TIME OF CONSULTATION: 60 minutes with the patient, >50% in discussion and counseling, coordination of care which was [id number], review of records and communication back to referring provider. BRENNEN Guillen 12/03/24 1500 documented in this encounter Plan of Treatment Upcoming Encounters Date Type Department Care Team (Late st Contact Info) Description 12/17/2024 1:30 PM EDT Telemedicine Maternal- Medicine at [facility] [address] [place] [phone] Alisa Saba APRN-CNP [address] [place] [address] 01/01/2025 1:00 PM EDT Appointment [facility] [place] [address] [address] 01/01/2025 2:30 PM EDT Telemedicine [facility] [place] [address] [address] Wilfrdi Medina MD [address] [facility], [address] [place] [address] Scheduled Orders Name Type Priority Associated Diagnoses Orde r Schedule Vitamin D 25 hydroxy Lab Routine Insulin controlled gestational diabetes mellitus (GDM) in second trimester 1 Occurrences starting 12/03/2024 until 12/03/2025 documented as of this encounter Visit Diagnoses Diagnosis Insulin controlled gestational diabetes mellitus (GDM) in second trimester- Primary documented in this encounter Care Teams Automatic Bow Maker Machine Tender Relationship Specialty Start Date End Date Evans Casas DO PCP - General Family Medicine 07/07/19 documented as of this encounter
--- OUTSIDE RECORDS SUMMARY | 2024-12-11 09:10 | XMS_ITS | Encounter Summary ---
Author Organization [facility] Address [address] [place] [address] Care Team Providers Care Floor Broker Name Role Phone Evans Casas MD Primary Care Provider [phone] Encounter Details Date Type Department Care Team (Late st Contact Info) Description 12/11/2024 9:10 AM EDT Routine [facility] [address] [place] [address] Wilton Herrmann DO [address] [place], [place] [phone] 19 weeks gestation of ([facility] Second trimester ([facility]); Thyroid disease ; Multigravida of advanced maternal age in second trimester ([facility]); Gestational diabetes mellitus (GDM), antepartum, gestational diabetes method of control unspecified ([facility]) Social History Tobacco Use Types Packs/Day Years [...] to check FSBS. Blood Glucose Monitoring Suppl ([employer] Glucometer) w/Device kit 1 kit, Does not [...] Diagnosis Date Noted 32 weeks gestation of ([facility]) 11/28/2019 Abdominal pain 06/12/2023 Acute bronchitis due to infection 06/12/2023 Acute on chronic vesicular eczema of hands and feet 11/15/2023 Anemia complicating childbirth ([facility]) 01/16/2020 Anticoagulant long-term use 02/22/2020 Antiphospholipid antibody positive 09/10/2017 Antiphospholipid antibody syndrome ([facility]) 07/07/2019 Anxiety 06/12/2023 Blood pressure elevated without history of HTN 11/15/2023 BMI 37.0-37.9, adult 11/15/2023 Cerebral infarction, unspecified ([facility]) 05/16/2019 Cerebrovascular accident (CVA) due to stenosis of middle cerebral artery ([facility]) 02/22/2020 Cervicalgia 02/05/2019 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 ([facility]) 01/08/2020 Coagulation defect, unspecified ([facility]) 02/05/2019 Cold intolerance 11/15/2023 Deficiency of other specified B group vitamins 05/16/2019 Deviated septum 11/15/2023 Dizziness and giddiness 02/05/2019 Dry mouth 11/15/2023 Dysfunction of eustachian tube 06/12/2023 Dyspnea 06/12/2023 Elevated blood pressure reading 11/15/2023 Encounter for supervision of normal , unspecified, first trimester ([facility]) 05/29/2019 Environmental allergies 11/15/2023 Fatigue 12/29/2016 First degree perineal laceration during delivery ([facility]) 01/16/2020 Frequency of micturition 02/19/2019 Genitourinary symptoms 08/19/2021 Gestational diabetes mellitus (GDM) affecting ([facility]) 01/26/2022 H/O: hypothyroidism 11/15/2023 Hematochezia 06/12/2023 History [...] anemia 01/16/2020 Irregular uterine bleeding 11/15/2023 problem ([facility]) 06/12/2023 Less than 8 weeks gestation of ([facility]) 06/05/2019 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/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 02/05/2019 Migraine without aura and without status migrainosus, not intractable 09/12/2017 Morbid obesity ([facility]) 11/15/2023 Muscle fasciculation 08/19/2021 Nasal polyps 11/15/2023 Non-smoker 11/15/2023 NEETA (obstructive sleep apnea) 11/15/2023 Other acute postprocedural pain 02/03/2019 Other general symptoms and signs 10/28/2019 Other immediate hemorrhage ([facility]) 01/16/2020 Other specified noninflammatory disorders of vagina 02/21/2019 Pain in joint 12/29/2016 Palpitations 08/26/2019 Paresthesia of bilateral legs 11/15/2023 Pelvic and perineal pain 02/01/2019 Personal history of urinary (tract) infections 01/16/2020 Pre-diabetes 11/15/2023 Primary hypercoagulable state ([facility]) 08/01/2022 Pruritus, unspecified 01/02/2020 Psychogenic hyperventilation 06/12/2023 Raised antibody titer 09/25/2017 Right lower quadrant pain 11/15/2023 Right otitis externa 11/15/2023 Salivary gland swelling 11/15/2023 Single live ([facility]) 01/15/2020 Snoring 11/15/2023 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) 12/30/2019 Suspected severe acute respiratory syndrome coronavirus 2 (SARS-CoV-2) infection 06/12/2023 SVT (supraventricular tachycardia) ([facility]) 08/26/2019 Syncope and collapse 06/03/2018 [...] Date AMA (advanced maternal age) multigravida 35+ ([facility]) Anemia Antiphospholipid syndrome ([facility]HCC) Gestational diabetes ([facility]-HCC) [...] drainage of cyst WISDOM TOOTH EXTRACTION 2007 [place] teeth REVIEW OF SYSTEMS Review of Systems: [...] nursing note reviewed. Exam conducted with a braze operator present. Vitals: Estimated body mass index is 33.41 kg/m?? as calculated from the following: Height as of 11/19/23: 5' 6 . Weight as of this encounter: 207 lb. BP: 120/70 Patient's last menstrual period was 07/28/2024. ASSESSMENT & PLAN ICD-10-CM 1. 19 weeks gestation of ([facility]) Z3A.19 POCT urinalysis dipstick manually resulted 2. Second trimester ([facility]) Z34.92 POCT urinalysis dipstick manually resulted 3. Thyroid disease E07.9 4. Multigravida of advanced maternal age in second trimester ([facility]) O09.522 5. Gestational diabetes mellitus (GDM), antepartum, gestational diabetes method of control unspecified ([facility]) O24.419 Patient presents today for a routine [...] scan and Telemedicine with MFM provider in [place]. Documented by Rosi Murray LPN on behalf of: Wilton Herrmann DO documented in this encounter Plan of Treatment Upcoming Encounters Date Type Department Care Team (Late st Contact Info) Description 01/05/2025 2:40 PM EDT Routine [facility] [address] [place] [address] Wilton Herrmann DO [address] [place] [address] Scheduled Orders Name Type Priority Associated Diagnoses Orde r Schedule TSH Lab Routine Second trimester ([facility]) Thyroid disease Ordered: 12/11/2024 documented as of this encounter Procedures Procedure Name Priority Date/Time Associated Diagnosis Comments POCT URINALYSIS DIPSTICK Routine 12/11/2024 9:36 AM EDT 19 weeks gestation of ([facility]) Second trimester ([facility]) documented in this encounter [...] Visit Diagnoses Diagnosis 19 weeks gestation of ([facility]) Second trimester ([facility]) state, incidental Thyroid disease Unspecified disorder of thyroid Multigravida of advanced maternal age in second trimester ([facility]) Gestational diabetes mellitus (GDM), antepartum, gestational diabetes method of control unspecified ([facility]) documented in this encounter Care Teams Floor Broker Relationship Specialty Start Date End Date Evans Casas MD [facility] [place] [address] [place] [address] PCP - General Family Medicine 11/07/23 documented as of this encounter
--- OUTSIDE RECORDS SUMMARY | 2024-12-11 10:32 | XMS_ITS | Encounter Summary ---
Author Organization [facility] Address [address] [place] [address] Care Team Providers Care Van Cdl Driver Name Role Phone Evans Casas MD Primary Care Provider [phone] Encounter Details Date Type Department Care Team (Late Contact Info) Description 09/01/2024 Abstract [facility] [address] [place] [phone] Wilton Herrmann DO [address] [place] [address] Dr [place], [facility] Social History Tobacco Use Types Packs/Day Years [...] Info) Description 01/05/2025 2:40 PM EDT Routine [facility] [address] [place] [phone] Wilton Herrmann DO [address] [place] [id number] documented as of this encounter Visit Diagnoses Not on filedocumented in this encounter Care Teams Van Cdl Driver Relationship Specialty Start Date End Date Evans Casas MD [address] [place] [address] PCP - General Family Medicine 11/07/23 documented as of this encounter
--- OUTSIDE RECORDS SUMMARY | 2024-12-11 10:32 | XMS_ITS | Encounter Summary ---
Author Organization [facility] Address [address] [place] [address] Care Team Providers Care Arcade Game Technician Name Role Phone Evans Casas MD Primary Care Provider [phone] Encounter Details Date Type Department Care Team (Late Contact Info) Description 09/11/2024 Abstract [facility] [address] [place] [address] Susie Ojeda [place] Social History Tobacco Use Types Packs/Day Years [...] Upcoming Encounters Date Type Department Care Team ([facility] Contact Info) Description 01/05/2025 2:40 PM EDT Routine [facility] COL[facility] [address] [place] [address] Wilton Herrmann DO [address] [place] [address] documented as of this encounter Visit Diagnoses Not on filedocumented in this encounter Care Teams Arcade Game Technician Relationship Specialty Start Date End Date Evans Casas MD [address] [place] [address] PCP - General Family Medicine 11/07/23 documented as of this encounter
--- OUTSIDE RECORDS SUMMARY | 2024-12-11 10:32 | XMS_ITS | Encounter Summary ---
Author Organization [facility] Address [address] [place] [address] Care Team Providers Care Periodontist Name Role Phone Humaira Gaviria (Historical) Primary Care Provi loyda Humaira Gaviria MD Primary Care Provider [phone] Jonny Wilcox MD Unavailable [phone] Jonny Wilcox MD Unavailable [phone] Cosmo Elliott MD Unavailable [phone] Davida Restrepo RN Unavailable [phone] Evans Casas DO Primary Care Provider [phone] Source Comments In the event this information is protected by the Federal Confidentiality of Alcohol and Drug AbusePatient Records regulations: The Federal rules restrict any use of the information to criminally investigate or prosecute any alcohol or drug abuse patient.[facility] Encounter Details Date Type Department Care Team (Late st Contact Info) Description 05/01/2018 Patient Msg Endocrinology [address] [place] [address] Provider, Ccf Upcoming Endocrinology Appointment [...] Department Care Team (Latest Contact Info) Description 12/22/2024 1:15 PM EDT Office Visit [facility] [address] [place] [address] [place] [address] 8 week follow up lab 12/22/2024 1:30 PM EDT Visit (SP) Office Hematology/Oncology [address] [facility] [place] [address] 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 APRN.HOT TAMALE MAN [address] [place] [address] 8 week follow up lab documented as of this encounter Visit Diagnoses Not on filedocumented in this encounter Care Teams Periodontist Relationship Specialty Start Date End Date Humaira Gaviria (Historical)MD 24 [place] [address] PCP - General Family Medicine 12/28/17 07/04/18 Humaira Gaviria MD [address] [place] [address] PCP - General Internal Medicine 07/05/18 01/29/22 Evans Casas DO [address] [facility] [address] [place] [address] PCP - General Family Medicine 01/30/22 Jonny Wilcox MD [address] [place] [address] Primary Staff Physician Cardiology 07/16/18 Jonny Wilcox MD [address] [place] [address] Primary Staff Physician Cardiology 07/16/18 [place] [address] [place] [address] Physician Hematology/Oncology 09/14/21 Davida Restrepo, RN [address] [place] [address] Specialty Staff Scientist Hematology/Oncology 09/14/21 documented as of this encounter
--- OUTSIDE RECORDS SUMMARY | 2024-12-11 10:32 | XMS_ITS | Encounter Summary ---
Author Organization [facility] Address [address] [place] [address] Care Team Providers Care Continuous Dryout Operator Name Role Phone Humaira Gaviria MD Primary Care Provider [phone] Jonny Wilcox MD Unavailable [phone] Cosmo Elliott MD Unavailable [phone] Davida Restrepo RN Unavailable [phone] Evans Casas DO Primary Care Provider [phone] Source Comments In the event this information is protected by the Federal Confidentiality of Alcohol and Drug AbusePatient Records regulations: The Federal rules restrict any use of the information to criminally investigate or prosecute any alcohol or drug abuse patient.[facility] Encounter Details Date Type Department Care Team (Late st Contact Info) Description 02/02/2021 Patient Msg Referring Physician [address] [place] [phone] Provider, Ccf CONSULT TO INFECTIOUS DISEASE Social [...] N ot on file 04/07/2020 Data from: https://[email or web address].[email or web address].[email or web address].edu/. Last address used for calculation Not on [...] EDT Office Visit [facility] [address] [place] [address] 8 week follow up lab 12/22/2024 1:30 PM EDT Visit (SP) Office Hematology/Oncology [address] [place] [address] 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, BUSINESS CENTER REPRESENTATIVE.IMAGING SCHEDULER [address] [place] [address] 8 week follow up lab documented as of this encounter Visit Diagnoses Not on filedocumented in this encounter Care Teams Continuous Dryout Operator Relationship Specialty Start Date End Date Humaira Gaviria MD [address] [place] [address] PCP - General Internal Medicine 07/05/18 01/29/22 Eavns Casas DO [address] [facility] [address] PCP - General Family Medicine 01/30/22 Jonny Wilcox MD [address] [place] [address] Primary Staff Physician Cardiology 07/16/18 [place] [address] [place] [address] Physician Hematology/Oncology 09/14/21 Davida Restrepo, RN [address] [place] [address] Specialty Lean Manager Hematology/Oncology 09/14/21 documented as of this encounter
--- OUTSIDE RECORDS SUMMARY | 2024-12-11 10:33 | XMS_ITS | Encounter Summary ---
Author Organization [facility] Address [address] [place] [address] Care Team Providers Care Forepart Reducer Name Role Phone Evans Casas MD Primary Care Provider [phone] Encounter Details Date Type Department Care Team (Late Contact Info) Description 05/06/2024 Abstract NOMJaylan COLVIN [address] [place] [phone] Wilton Herrmann DO [address] [place] [address] Dr June [place], [facility]11 Social History Tobacco Use Types Packs/Day Years [...] 2:40 PM EDT Routine SHILOH COLVIN [address] [place] [address] Wilton Herrmann DO [address] [facility] [address] June [place] [phone] documented as of this encounter Visit Diagnoses Not on filedocumented in this encounter Care Teams Forepart Reducer Relationship Specialty Start Date End Date Evans Casas MD [address] [place] [address] PCP - General Family Medicine 11/07/23 documented as of this encounter
--- OUTSIDE RECORDS SUMMARY | 2024-12-11 10:33 | XMS_ITS | Encounter Summary ---
Author Organization [facility] Address [address] [place] [address] Care Team Providers Care Typewriter Mechanic Name Role Phone Evans Casas MD Primary Care Provider [phone] Encounter Details Date Type Department Care Team (Late Contact Info) Description 06/13/2024 Abstract NOMJaylan COLVIN [address] [facility] [place] [phone] Wilton Herrmann DO [address] [place] [address] Dr June [place], [facility]11 Social History Tobacco Use Types Packs/Day [...] 2:40 PM EDT Routine SHILOH COLVIN [address] [place] [address] Wilton Herrmann DO 102 [facility] Dr June [place] [phone] documented as of this encounter Visit Diagnoses Not on filedocumented in this encounter Care Teams Typewriter Mechanic Relationship Specialty Start Date End Date Evans Casas MD [address] [place] [address] PCP - General Family Medicine 11/07/23 documented as of this encounter
--- OUTSIDE RECORDS SUMMARY | 2024-12-11 10:33 | XMS_ITS | Encounter Summary ---
Author Organization [facility] Address [address] [place] [address] Care Team Providers Care Account Specialist Name Role Phone Evans Casas MD Primary Care Provider [phone] Encounter Details Date Type Department Care Team (Late Contact Info) Description 11/15/2023 Abstract [facility] Steev Otolaryngology [address] [facility] [address] [place] [address] Sari Almeida MA Social History [...] Department Care Team (Late Contact Info) Description 01/05/2025 2:40 PM EDT Routine [facility] Piyush OBGYN [address] [facility] [address] Wilton Herrmann DO [address] [place] [address] documented as of this encounter Visit Diagnoses Not on filedocumented in this encounter Care Teams Account Specialist Relationship Specialty Start Date End Date Evans Casas MD [address] [place] [address] PCP - General Family Medicine 11/07/23 documented as of this encounter
--- OUTSIDE RECORDS SUMMARY | 2024-12-11 10:33 | XMS_ITS | Encounter Summary ---
Author Organization [facility] Rewardable [facility] tem Address [facility]-[id number] [address] [place] [address] Care Team Providers Care Perishable Fruit Inspector Name Role Phone Evans Casas DO Primary Care Provider [phone] Encounter Details Date Type Department Care Team (Late st Contact Info) Description 12/03/2024 Telephone Maternal- Medicine at [facility] [address] [place] [address] Anni Abreu CMA Social History Tobacco Use Types Packs/Day Years [...] encounter Miscellaneous Notes * Telephone Encounter - Anni Abreu CMA - 12/03/2024 3:01 PM EDT Left message with patient to call our office to schedule her next appt in 2 week with an DESK REPRESENTATIVE/PA. Left call back number and to press option 3 for scheduling. documented in this encounter Plan of Treatment Upcoming Encounters Date Type Department Care Team (Late st Contact Info) Description 12/17/2024 1:30 PM EDT Telemedicine Maternal- Medicine at [facility] 2 [place] [phone] Alisa Saba APRN-TELEVISION INSTALLER [address] [place] [address] 01/01/2025 1:00 PM EDT Appointment Maternal Medicine [place] [address] [address] 01/01/2025 2:30 PM EDT Telemedicine Maternal Medicine [place] [address] [address] Wilfrid Medina MD [address] [facility], [address] [place] [address] documented as of this encounter Visit Diagnoses Not on filedocumented in this encounter Care Teams Perishable Fruit Inspector Relationship Specialty Start Date End Date Evans Casas DO PCP - General Family Medicine 07/07/19 documented as of this encounter
--- OUTSIDE RECORDS SUMMARY | 2024-12-11 10:33 | XMS_ITS | Encounter Summary ---
Author Organization [facility] Address [address] [place] [address] Care Team Providers Care Aircraft Instrument Tester Name Role Phone Evans Casas MD Primary Care Provider Encounter Details Date Type Department Care Team (Late st Contact Info) Description 11/27/2024 Telephone [facility] Piyush OBARIELLE [address] [place] [address] Wilton Herrmann DO [address] June [place], [facility]11 Social History Tobacco Use Types Packs/Day [...] Miscellaneous Notes * Telephone Encounter - Renate Vegas LPN - 11/27/2024 3:32 PM EDT I just finished up the day before yesterday that vaginal gel to treat BV. And now I have I have this clumpy white discharge and I am a little bit crampy and I do not know, and I feel Like I have to urinate, like, more often than usual and I do not know if that can just be normal with the gel to have the clumpy white discharge, or if that means I have a yeast infection now, and I did not know if Ishould just treat with james or what, so if you could call me back. Patient call was returned and she was advised we can send in something for a feeling of having to urinate, patient did not want. Patient was advised that the terconazole and metrogel both can cause white discharge. Patient states that she does have some itching and she would rather use Monistat 7 instead of the terconazole and asking if sh should wait or start using. Patient was advised she can do either. PVU documented in this encounter Plan of Treatment Upcoming Encounters Date Type Department Care Team (Late st Contact Info) Description 01/05/2025 2:40 PM EDT Routine [facility] Piyush OBGYN [address] [facility] [place] [phone] Wilton Herrmann DO [address] [facility] [place] [address] documented as of this encounter Visit Diagnoses Not on filedocumented in this encounter Care Teams Aircraft Instrument Tester Relationship Specialty Start Date End Date Evans Casas MD [address] [place] [address] PCP - General Family Medicine 11/07/23 documented as of this encounter
--- OUTSIDE RECORDS SUMMARY | 2024-12-11 10:33 | XMS_ITS | Encounter Summary ---
Author Organization [facility] Address [address] [place] [address] Care Team Providers Care Plate And Weld Inspector Name Role Phone Evans Casas MD Primary Care Provider [phone] Encounter Details Date Type Department Care Team (Late Contact Info) Description 06/02/2024 Abstract NOMJaylan COLVIN [address] [facility] [place] [address] Wilton Herrmann DO [address] [place] [address] Dr June [place], [facility] Social History Tobacco Use Types Packs/Day Years [...] EDT Routine SHILOH COLVIN [address] [facility] [place] [address] Wilton Herrmann DO [address] [facility] [address] [place] [phone] documented as of this encounter Visit Diagnoses Not on filedocumented in this encounter Care Teams Plate And Weld Inspector Relationship Specialty Start Date End Date Evans Casas MD [address] [place] [address] PCP - General Family Medicine 11/07/23 documented as of this encounter
--- OUTSIDE RECORDS SUMMARY | 2024-12-11 10:33 | XMS_ITS | Encounter Summary ---
Author Organization [facility] Address [address] [facility] [address] [place] [address] Care Team Providers Care Mis Director Name Role Phone Evans Casas MD Primary Care Provider [phone] Encounter Details Date Type Department Care Team (Late Contact Info) Description 05/12/2024 Abstract NOMJaylan COLVIN [address] [facility] [place] [address] Wilton Herrmann DO [address] [place] [address] Dr June [place], [facility]11 Social History Tobacco Use Types Packs/Day [...] 2:40 PM EDT Routine SHILOH COLVIN [address] [facility] [place] [address] Wilton Herrmann DO [address] [facility] [address] June [place] [phone] documented as of this encounter Visit Diagnoses Not on filedocumented in this encounter Care Teams Mis Director Relationship Specialty Start Date End Date Evans Casas MD [address] [place] [address] PCP - General Family Medicine 11/07/23 documented as of this encounter
--- OUTSIDE RECORDS SUMMARY | 2024-12-11 10:33 | XMS_ITS | Encounter Summary ---
Author Organization [facility] Address [address] [facility] [address] [address] [place] [address] Care Team Providers Care Concrete Mixer Operator Helper Name Role Phone Evans Casas MD Primary Care Provider [phone] Encounter Details Date Type Department Care Team (Late Contact Info) Description 05/10/2024 Abstract [facility]S Piyush COLVIN [address] [place] [address] Rosi Murray LPN Social History Tobacco [...] Upcoming Encounters Date Type Department Care Team ([facility] Contact Info) Description 01/05/2025 2:40 PM EDT Routine SHILOH COLVIN [address] [place] [address] Wilton Herrmann DO [address] [place] [address] documented as of this encounter Visit Diagnoses Not on filedocumented in this encounter Care Teams Concrete Mixer Operator Helper Relationship Specialty Start Date End Date Evans Casas MD [address] [place] [address] PCP - General Family Medicine 11/07/23 documented as of this encounter
--- OUTSIDE RECORDS SUMMARY | 2024-12-11 10:33 | XMS_ITS | Encounter Summary ---
Author Organization [facility] Address [address] [place] [address] Care Team Providers Care Senior Applications Engineer Name Role Phone Evasn Casas MD Primary Care Provider [phone] Encounter Details Date Type Department Care Team (Late st Contact Info) Description 12/04/2024 Abstract [facility] [address] [place] [phone] Petra Whitmore, DEB [address] [place] [address] Social History Tobacco Use Types Packs/Day Years [...] Description 01/05/2025 2:40 PM EDT Routine SHILOH [place] OBGYN [address] [place] [phone] Wilton Herrmann DO [address] [place] [address] documented as of this encounter Visit Diagnoses Not on filedocumented in this encounter Care Teams Senior Applications Engineer Relationship Specialty Start Date End Date Evans Casas MD [address] [place] [address] PCP - General Family Medicine 11/07/23 documented as of this encounter
--- OUTSIDE RECORDS SUMMARY | 2024-12-11 10:33 | XMS_ITS | Encounter Summary ---
Author Organization [facility] Address [address] [facility] [place] [address] Care Team Providers Care Drywall Taper Name Role Phone Evans Casas MD Primary Care Provider [phone] Encounter Details Date Type Department Care Team (Late Contact Info) Description 06/10/2024 Abstract NOMJaylan COLVIN [address] [facility] [place] [address] Wilton Herrmann DO [address] [place] [address] Dr June [place], [facility]11 Social History Tobacco Use Types Packs/Day [...] 2:40 PM EDT Routine SHILOH COLVIN [address] [facility] [place] [address] Wilton Herrmann DO [address] [facility] [address] [place] [phone] documented as of this encounter Visit Diagnoses Not on filedocumented in this encounter Care Teams Drywall Taper Relationship Specialty Start Date End Date Evans Casas MD [address] [place] [address] PCP - General Family Medicine 11/07/23 documented as of this encounter
--- OUTSIDE RECORDS SUMMARY | 2024-12-11 10:33 | XMS_ITS | Encounter Summary ---
Author Organization [facility] Address [address] [facility] [address] [place] [address] Care Team Providers Care Cvt Rn Name Role Phone Evans Casas MD Primary Care Provider [phone] Encounter Details Date Type Department Care Team (Late Contact Info) Description 10/24/2024 Abstract SHILOH COLVIN [address] [place] [address] Wilton Herrmann DO [facility] [place], [facility]11 Social History Tobacco Use Types Packs/Day Years [...] 2:40 PM EDT Routine SHILOH COLVIN [address] [place] [address] Wilton Herrmann DO [address] [place] [place], [place] [phone] documented as of this encounter Visit Diagnoses Not on filedocumented in this encounter Care Teams Cvt Rn Relationship Specialty Start Date End Date Evans Casas MD [address] [facility] [place] [place] [address] PCP - General Family Medicine 11/07/23 documented as of this encounter
--- OUTSIDE RECORDS SUMMARY | 2024-12-11 10:33 | XMS_ITS | Encounter Summary ---
Author Organization [facility] tem Address [facility]-[id number] [address] [place] [address] Care Team Providers Care Cable Technician Name Role Phone Evans Casas DO Primary Care Provider [phone] Encounter Details Date Type Department Care Team (Latest Contact Info) Description 12/02/2024 Travel Social History Tobacco Use Types Packs/Day Years [...] 1:30 PM EDT Telemedicine Maternal- Medicine at [facility] [address] [place] [address] Alisa Saba, VICTOR HUGO-TOR [address] [place] [address] 01/01/2025 1:00 PM EDT Appointment Maternal Medicine [place] [address] [facility] 4 [place] [address] 01/01/2025 2:30 PM EDT Telemedicine Maternal Medicine [place] [address] [facility] [address] [place] [address] Wilfrid Medina MD [address] [facility], [address] [place] [address] documented as of this encounter Visit Diagnoses Not on filedocumented in this encounter Care Teams Cable Technician Relationship Specialty Start Date End Date Evans Casas DO PCP - General Family Medicine 07/07/19 documented as of this encounter
--- OUTSIDE RECORDS SUMMARY | 2024-12-11 10:33 | XMS_ITS | Encounter Summary ---
Author Organization [facility] Address [address] [place] [address] Care Team Providers Care Youth Ministry Director Name Role Phone Penelope Casas MD Primary Care Provider [phone] Encounter Details Date Type Department Care Team (Late st Contact Info) Description 05/10/2024 Clinisync Result Encounter NOMS External Department Unsolicited Mya Herrmann DO [address] [place] [address] Social History Tobacco Use Types Packs/Day Years [...] PM EDT Routine [facility] Piyush OBGYN [address] [place] [phone] Mya Herrmann DO [address] [place] [address] documented as of this encounter Procedures Procedure [...] AM EST Narrative 05/10/2024 9:29 [place] [address] Ultrasound Report Signed Patient: SANNA RENDON MR#: [id number] : 1985 Acct:[id number] Age/Sex: 38 / F ADM Date: Loc: [facility] 258-[address]: Mya Herrmann D.O. Ordering Physician: Mya Herrmann D.O. Date of Service: 05/10/24 Procedure(s): US OB limited Accession Number(s): [id number] cc: Mya Herrmann D.O.; PENELOPE CASAS [place] [id number] Patient Name: SANNA RENDON MRN: [facility]:[id number] date: 1985 Sex: F Assigned Patient Location: [facility] Current Patient Location: [place] Accession/Order Number: [id number] Exam Date: 05/10/2024 08:30 Report Date: 05/10/2024 [...] M.D. Signed By: 05/10/24928 DD/ 5 TD/TT: Physician Primary Care Sports Medicine: Procedure Note Radiology, Radiologist, MD - 05/10/2024 [place] [address] Ultrasound Report Signed Patient: SANNA RENDON SMR#: [id number] : 1985Acct:[id number] Age/Sex: 38 / FADM Date: Loc: [facility] 258-[address]: Mya Herrmann D.O. Ordering Physician: Mya Herrmann D.O. Date of Service: 05/10/24 Procedure(s): US OB limited Accession Number(s): [id number] cc: Mya Herrmann D.O.; PENELOPE CASAS [place] [address] Patient Name: SANNA RENDON MRN: [id number] date: 1985 Sex: F Assigned Patient Location: [facility] Current Patient Location: [place] Accession/Order Number: [id number] Exam Date: 05/10/2024 08:30 Report Date: 05/10/2024 [...] Riley M.D. Signed By:05/10/24928 DD/ 5 TD/TT: Physician Primary Care Sports Medicine: Mya Montez DO IMG OB US PROCEDURES Final Resul t * MHPT FIBRINOGEN (05/10/2024 8:44 AM EST) FIBRINOGEN 391 200 - 400 mg/dL TBH 05/10/2024 8:44 AM EST 05/10/2024 8:52 AM EST Narrative [facility] - 05/10/2024 9:35 AM EST Mya Montez DO CLINISYNC Final Result [facility] * [facility] APTT (05/10/2024 8:44 AM EST) PARTIAL THROMBOPLASTIN TIME 28.5 22.3 - 36.2 sec TB 05/10/2024 8:44 AM EST 05/10/2024 8:52 AM EST Narrative CL[facility]ISYNC - 05/10/2024 9:35 AM EST Mya Montez DO CLINISYNC Final Result [facility] * [facility] PROTHROMBIN TIME INR W/O COUM (05/10/2024 8:44 AM EST) PROTHROMBIN TIME 10.3 9.0 - 11.6 sec TBH TBH INR 0.97 TBH Comment: DESIRED INR: 2.0-3.0 CONDITIONS NOT LISTED BELOW 2.5-3.5 FOR PROSTHETIC HEART VALVE REPLACEMENT 2.5-3.5 RECURRENT THROMBOSIS 05/10/2024 8:44 AM EST 05/10/2024 8:52 AM EST Narrative CLINISYNC - 05/10/2024 9:35 AM EST us Mya Montez DO CLINISYNC Final Result [facility] documented in this encounter Visit Diagnoses Not on filedocumented in this encounter Care Teams Youth Ministry Director Relationship Specialty Start Date End Date Penelope Casas MD [address] [place] [address] PCP - General Family Medicine 11/07/23 documented as of this encounter
--- OUTSIDE RECORDS SUMMARY | 2024-12-11 10:33 | XMS_ITS | Encounter Summary ---
Author Organization [facility] Address [address] [place] [address] Care Team Providers Care Director Of Individual Giving Name Role Phone Evans Casas MD Primary Care Provider [phone] Encounter Details Date Type Department Care Team (Late Contact Info) Description 05/28/2024 Abstract NOMJay[facility] COLVIN [address] [place] [phone] Wilton Herrmann DO [address] [place] [address] Dr June Pickett, [facility]11 Social History Tobacco Use Types Packs/Day [...] 2:40 PM EDT Routine SHILOH COLVIN [address] [place] [phone] Wilton Herrmann DO [address] [place] [id number] documented as of this encounter Visit Diagnoses Not on filedocumented in this encounter Care Teams Director Of Individual Giving Relationship Specialty Start Date End Date Evans Casas MD [address] [place] [address] PCP - General Family Medicine 11/07/23 documented as of this encounter
--- OUTSIDE RECORDS SUMMARY | 2024-12-11 10:33 | XMS_ITS | Clinical Summary ---
Author Organization [facility] Address [address] [place] [address] Care Team Providers Care Informaticist Name Role Phone Jonny Wilcox MD Unavailable [phone] Cosmo Elliott MD Unavailable [phone] Davida Restrepo RN Unavailable [phone] Evans Casas DO Primary Care Provider [phone] Allergies Active Allergy Reactions Criticality Noted Date [...] mg 24 hr tablet 03/26/20 22 Active progesterone vaginal suppository 200 mg (CPD) Use 200 mg vaginally. Unwrap and insert as directed. Active polyethylene glycol 3350 (MIRALAX PO) Take by mouth. Ac tive docusate sodium (COLACE PO) Take by mouth. Act aftab enoxaparin (LOVENOX) 40 mg/0.4 mLIndications:Prim sherrie hypercoagulable state (HCC),CVA, old, speech/language deficit,Cerebral hyponatremia INJECT 1 SYRINGE SUBCUTANEOUSLY EVERY 24 HOURS 90 mL 10/30/19 25 Active Active Problems Problem Noted Date [...] 09/10/2017 Fatigue 12/29/2016 Pain in joint 12/29/2016 Estimated Date of Delivery Comme nts Yes 07/28/2024 Encounters Date Type Department Care Team Description 10/29/2024 Refill Hematology/Oncology [address] [place] [address] [place] [address] Emelyn Paz, BLEACH LIQUOR MAKER.EDITORIAL WRITER Refill Request 10/28/2024 2:30 PM EDT Visit (SP) Office Hematology/Oncology [address] [place] [address] [place] [address] 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, BLEACH LIQUOR MAKER.EDITORIAL WRITER Primary hypercoagulable state (HCC) (Primary Dx); CVA, old, speech/language deficit; Cerebral hyponatremia; Personal history of TIA (transient ischemic attack) 10/28/2024 Telephone Cancer Appts [address] [place] [address] 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, BLEACH LIQUOR MAKER.EDITORIAL WRITER Results 10/28/2024 Travel 10/24/2024 Telephone Hematology/Oncology [address] [place] [address] [place] [address] 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, BLEACH LIQUOR MAKER.EDITORIAL WRITER Lab Orders 10/20/2024 Refill Hematology/Oncology [address] [place] [address] [place] [address] Salvador Dos Santos MD Refill Request from [...] is lower risk 4 09/28/2022 Data from: https://www.neighborhoodatlas.medicine.[facility].edu/. 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 Not on file Not on file Not on file Last Filed Vital Signs Vital Sign Reading Time Taken Comments Blood Pressure 122/77 10/28/2024 2:23 PM EDT Pulse 82 10/28/2024 2:23 PM EDT Temperature 36.1 C (97 F) 10/28/2024 2:23 PM EDT Respiratory Rate 16 10/28/2024 2:23 PM EDT Oxygen Saturation 100% 10/28/2024 2:23 PM EDT Inhaled Oxygen Concentration - - Weight 94.1 kg (207 lb 7.3 oz) 10/28/2024 2:23 P M EDT Height 167.7 cm (5' 6.02 ) 05/28/2024 1:07 PM ES T Body Mass Index 33.46 05/28/2024 1:07 PM EST Plan of Treatment Upcoming Encounters Date Type Department Care Team (Latest Contact Info) Description 12/22/2024 1:15 PM EDT Office Visit [facility] [address] [place] [address] 8 week follow up lab 12/22/2024 1:30 PM EDT Visit (SP) Office Hematology/Oncology [address] [place] [address] 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 APRN.EDITORIAL WRITER [address] [place] [address] 8 week follow up lab Health Maintenance Due Date Last Done Comments Anxiety Screening 10/22/2003 Depression Screening 10/22/2003 HIV Screening 10/22/2003 Hepatitis C Screening 10/22/2003 Hepatitis B Vaccine (1 of 3 - 19+ 3-dose series) 2004 HPV Vaccine (1 - 3-dose SCDM series) 2012 Cervical Cancer Screening 12/04/2020 12/04/2017 DTaP,Tdap,Td Vaccine (2 - Td or Tdap) 07/03/2024 07/03/2014 Influenza Vaccine (#1) 2024 8 (Patient/Parent/Guardian Counseled and Declines) RSV Vaccine (1 - 1-dose 75+ series) 2060 Procedures Procedure Name Priority Date/Time Associated Diagnosis Comments VITAMIN B12 BLOOD Routine 10/28/2024 2:1 6 PM EDT 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 Vitamin D deficiency VITAMIN D 25 HYDROXY Routine 10/28/2024 2:16 PM EDT 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 Vitamin D deficiency FERRITIN BLD Routine 10/28/2024 2:16 PM EDT 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 Vitamin D deficiency IRON + TIBC Routine 10/28/2024 2:16 PM EDT 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 Vitamin D deficiency TSH BLD Routine 10/28/2024 2:16 PM EDT 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 Vitamin D deficiency COMPREHENSIVE METABOLIC PANEL Routine 10/28/2024 2:16 PM EDT 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 Sufficiency/Optimal Levels: 31-80 ng/mL Toxicity: > 100 ng/mL. Test performed by chemiluminescent immunoassay. Blood BLOOD SPECIMEN / Unknown Venipuncture / Unknown 10/28/2024 2:16 PM EDT 10/28/2024 2:16 PM EDT Narrative [facility] - 10/29/2024 1:05 PM EDT The reference range interval was based on an analysis of samples from healthy adults and may not pertain to children from 0-18 years old. us 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 BLEACH LIQUOR MAKER.EDITORIAL WRITER LABORATORY Final Re sult [facility] [address] [address], * VITAMIN B12 (10/28/2024 2:16 PM EDT) Vitamin B12 483 232 - 1,245 pg/mL 10/29/2024 1:12 AM EDT [facility] Blood BLOOD SPECIMEN / Unknown Venipuncture / Unknown 10/28/2024 2:16 PM EDT 10/28/2024 2:16 PM EDT 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 BLEACH LIQUOR MAKER.EDITORIAL WRITER LABORATORY Final Re sult Performing Organization Address [facility] Co de Phone Number [facility] [address] [place] [phone], [place] * THYROID STIMULATING HORMONE (10/28/2024 2:16 PM EDT) TSH 1.250 0.270 - 4.200 mIU/L 10/29/2024 1:12 AM EDT [facility] Comment: If the patient is , TSH reference range varies by gestational period: First Trimester (weeks 9-12): 0.180-2.990 mIU/L Second Trimester: 0.110-3.980 mIU/L Third Trimester: 0.480-4.710 mIU/L Danny Varela et al. A Practical Approach for the Verifications and Determination of Site- and Trimester-Specific Reference Intervals for Thyroid Function tests in . Thyroid, 2019:29:3:412-420. Saeed E, et al. 2017 Guidelines of the [place] Thyroid Association for the Diagnosis and Management of Thyroid Disease during and the . Thyroid, 2017:27:3:315-389. Blood BLOOD SPECIMEN / Unknown Venipuncture / Unknown 10/28/2024 2:16 PM EDT 10/28/2024 2:16 PM EDT us 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 BLEACH LIQUOR MAKER.EDITORIAL WRITER LABORATORY Final Re sult Performing Organization Address [facility]/ZIP Co de Phone Number [facility] [address] [place] [phone], [place] * (ABNORMAL) IRON AND TIBC (10/28/2024 2:16 PM EDT) Iron 72 41 - 186 ug/dL 10/29/2024 12:58 AM EDT [facility] TIBC 399(H) 232 - 386 ug/dL 10/29/2024 12:58 AM EDT [facility] Transferrin Saturation 18.0 15.0 - 57.0 % 10/29/2024 12:58 AM EDT [facility] Blood BLOOD SPECIMEN / Unknown Venipuncture / Unknown 10/28/2024 2:16 PM EDT 10/28/2024 2:16 PM EDT 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 APRN.EDITORIAL WRITER LABORATORY Final Re sult Performing Organization Address City/[facility]/ZIP Co de Phone Number [facility] [address] [place] [address], [place] * FERRITIN (10/28/2024 2:16 PM EDT) Pathologist [facility] Ferritin 99.6 14.7 - 205.1 ng/mL 10/29/2024 1:12 AM EDT [facility] Blood BLOOD SPECIMEN / Unknown Venipuncture / Unknown 10/28/2024 2:16 PM EDT 10/28/2024 2:16 PM EDT 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 APRN.EDITORIAL WRITER LABORATORY Final Re sult Performing Organization Address [facility] de Phone Number [facility] [address] [place] [address], [place] * (ABNORMAL) COMPREHENSIVE METABOLIC PANEL (10/28/2024 2:16 PM EDT) Protein, Total 7.6 6.3 - 8.0 g/dL 10/28/2024 2:47 PM EDT [facility] Albumin 4.4 3.9 - 4.9 g/dL 10/28/2024 2:47 PM EDT [facility] Calcium, Total 9.9 8.5 - 10.2 mg/dL 10/28/2024 2:47 PM EDT [facility] Bilirubin, Total 0.2 0.2 - 1.3 mg/dL 10/28/2024 2:47 PM EDT [facility] Alkaline Phosphatase 55 34 - 123 U/L 10/28/2024 2:47 PM EDT [facility] AST 13 13 - 35 U/L 10/28/2024 2:47 PM EDT [facility] ALT 18 7 - 38 U/L 10/28/2024 2:47 PM EDT [facility] Glucose 101(H) 74 - 99 mg/dL 10/28/2024 2:47 PM T [facility] Comment: The [place] Diabetes Association (ADA) provides guidance for cutoff [...] Standards of Medical Care in Diabetes 2016, [place] Diabetes Association. Diabetes Care. 2016.39(Suppl 1). BUN 7 7 - 21 mg/dL 10/28/2024 2:47 PM T [facility] Creatinine 0.60 0.58 - 0.96 mg/dL 10/28/2024 2:47 PM [facility] Sodium 133(L) 136 - 144 mmol/L 10/28/2024 2:47 PM T [facility] Potassium 3.5(L) 3.7 - 5.1 mmol/L 10/28/2024 2:47 PM T [facility] Chloride 99 98 - 107 mmol/L 10/28/2024 2:47 PM T [facility] CO2 22 22 - 30 mmol/L 10/28/2024 2:47 PM EDT [facility] Anion Gap 12 8 - 15 mmol/L 10/28/2024 2:47 PM T [facility] Estimated Glomerular Filtration Rate 117 >=60 mL/min/1. 73m 10/28/2024 2:47 PM EDT [facility] Comment:Estimated Glomerular Filtration Rate (eGFR) is calculated using the 2020 CKD-EPI creatinine equation. This equation utilizes serum creatinine, sex, and age as parameters. The creatinine assay has traceable calibration to isotope dilution- mass spectrometry. Refer to KDIGO guidelines for clinical interpretation. In patients with unstable renal function, e.g. those with acute kidney injury, the eGFR may not accurately reflect actual GFR. Blood BLOOD SPECIMEN / Unknown Venipuncture / Unknown 10/28/2024 2:16 PM EDT 10/28/2024 2:16 PM EDT us 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 BLEACH LIQUOR MAKER.[facility] Final Re sult [facility] [address] [place] [id number] * COMPLETE BLOOD COUNT AND DIFFERENTIAL (10/28/2024 2:16 PM EDT) WBC 9.52 3.70 - 11.00 k/uL 10/28/2024 2:20 PM EDT [facility] RBC 4.25 3.90 - 5.20 m/uL 10/28/2024 2:20 PM EDT [facility] Hemoglobin 13.0 11.5 - 15.5 g/dL 10/28/2024 2:20 PM EDT [facility] Hematocrit 36.9 36.0 - 46.0 % 10/28/2024 2:20 PM EDT [facility] MCV 86.8 80.0 - 100.0 fL 10/28/2024 2:20 PM EDT [facility] MCH 30.6 26.0 - 34.0 pg 10/28/2024 2:20 PM EDT [facility] MCHC 35.2 30.5 - 36.0 g/dL 10/28/2024 2:20 PM EDT [facility] RDW-CV 14.5 11.5 - 15.0 % 10/28/2024 2:20 PM EDT [facility] Platelet Count 327 150 - 400 k/uL 10/28/2024 2:20 PM EDT [facility] MPV 9.8 9.0 - 12.7 fL 10/28/2024 2:20 PM EDT [facility] Neutrophils % 68.1 % 10/28/2024 2:20 PM EDT [facility] Abs Neut 6.48 1.45 - 7.50 k/uL 10/28/2024 2:20 PM EDT [facility] Lymphocytes % 26.3 % 10/28/2024 2:20 PM EDT [facility] Abs Lymph 2.50 1.00 - 4.00 k/uL 10/28/2024 2:20 PM EDT [facility] Monocytes % 4.6 % 10/28/2024 2:20 PM EDT [facility] Abs [place] 0.44 <0.87 k/uL 10/28/2024 2:20 PM EDT [facility] Eosinophils % 0.5 % 10/28/2024 2:20 PM EDT [facility] Abs Eosin 0.05 <0.46 k/uL 10/28/2024 2:20 PM EDT [facility] Basophils % 0.3 % 10/28/2024 2:20 PM EDT [facility] Abs Baso 0.03 <0.11 k/uL 10/28/2024 2:20 PM EDT [facility] Immature Granulocytes % 0.2 % 10/28/2024 2:20 PM EDT [facility] Abs Immature Gran <0.03 <0.10 k/uL 2 025 2:20 PM EDT [facility] NRBC 0.0 /100 WBC 10/28/2024 2:20 PM EDT [facility] Absolute nRBC <0.01 <0.01 k/uL 10/28/2024 2:20 PM EDT [facility] Diff Type Auto 10/28/2024 2:20 PM EDT [facility] Blood BLOOD SPECIMEN / Unknown Venipuncture / Unknown 10/28/2024 2:16 PM EDT 10/28/2024 2:16 PM EDT us 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 BLEACH LIQUOR MAKER.EDITORIAL WRITER LABORATORY Final Re sult [facility] [address] [place] [address] from Last 3 Months Insurance [employer] [place] Care Teams Informaticist Relationship Specialty Start Date End Date Evans Casas DO [address] [address] PCP - General Family Medicine 01/30/22 Jonny Wilcox MD [address] [place] [address] Primary Staff Physician Cardiology 07/16/18 [place] [address] [place] [address] Physician Hematology/Oncology 09/14/21 Davida Restrepo, RN [address] [place] [address] Specialty Nurse Transitional Hematology/Oncology 09/14/21
--- OUTSIDE RECORDS SUMMARY | 2024-12-11 10:33 | XMS_ITS | Encounter Summary ---
Author Organization [facility] Address [address] [place] [address] Care Team Providers Care Photo Technologist Name Role Phone Penelope Casas MD Primary Care Provider [phone] Encounter Details Date Type Department Care Team (Late st Contact Info) Description 05/10/2024 Clinisync Result Encounter [facility] External Department Unsolicited Mya Herrmann DO [address] [place] [address] Social History Tobacco Use Types Packs/Day Years [...] Routine [facility] [address] [place] [phone] Mya Herrmann DO [address] [place] [address] documented as of this encounter Procedures Procedure [...] PM EST Narrative 05/10/2024 4:04 [place] [address] Ultrasound Report Signed Patient: MADHU RENDON MR#: [id number] : 1985 Acct:[id number] Age/Sex: 38 / F ADM Date: Loc: [facility] [address]: Mya Herrmann D.O. Ordering Physician: Mya Herrmann D.O. Date of Service: 05/10/24 Procedure(s): US pelvis Accession Number(s): [id number] cc: May Herrmann D.O.; PENELOPE CASAS [place] [id number] Patient Name: MADHU RENDON MRN: [facility]:[id number] date: 1985 Sex: F Assigned Patient Location: [facility] Current Patient Location: [facility] Accession/Order Number: [id number] Exam Date: 05/10/2024 14:36 Report Date: 05/10/2024 [...] Riley M.D. Signed By: 05/10/24 1604 DD/ 01 TD/TT: Controller Repairer And Tester: Procedure Note Radiology, Radiologist, MD - 05/10/2024 [place] [address] Ultrasound Report Signed Patient: MADHU RENDON SMR#: [id number] : 1985Acct:[id number] Age/Sex: 38 / FADM Date: Loc: [facility] [address]: Mya Herrmann D.O. Ordering Physician: Mya Herrmann D.O. Date of Service: 05/10/24 Procedure(s): US pelvis Accession Number(s): [id number] cc: Mya Herrmann D.O.; PENELOPE CASAS [place] [id number] Patient Name: MADHU RENDON MRN: [id number] date: 1985 Sex: F Assigned Patient Location: [facility] Current Patient Location: [facility] Accession/Order Number: [id number] Exam Date: 05/10/2024 14:36 Report Date: 05/10/2024 [...] Pascual Riley M.D. Signed By:05/10/24 1604 DD/ 160 TD/TT: Controller Repairer And Tester: [facility] DO [facility] IMAG[facility] Final Result * FACTOR V LEIDEN MUTATION (05/10/2024 8:44 AM EST) [facility] FACTOR V LEIDEN MUTATION Comment . [facility] Comment: Result: c.1601G>A (p.[id number]) - Not Detected This result is not associated with an increased risk for venous thromboembolism. See Additional Clinical Information and Comments. Additional Clinical Information: Venous thromboembolism is a multifactorial disease influenced by genetic, environmental, and circumstantial risk factors. The c.1601G>A (p. Kna058Dio) variant in the F5 gene, commonly referred [...] c.*97G>A variant and Factor V Leiden (PMID: 25065587). Additional risk factors include but are not [...] health care providers to discuss results at [phone] ([phone]). Test Details: Variant Analyzed: c.1601G>A (p. Jbo930Oos), referred to as Factor V Leiden Methods/Limitations: [...] developed and its performance characteristics determined by [employer]. It has not been cleared or approved by the Food and Drug Administration. References: Jomar Tian, Loren BLANDON, Thiago R, Solo WW, Jose JH; ACMG Professional Practice and Guidelines Committee. Addendum: [employer] consensus statement on factor V Leiden mutation testing. Nisha Med. 2020Jul 02. doi: 10.1038/n98002-502-05970-x. PMID: 61576466. Naina POWERS. Factor V Leiden Thrombophilia. 1998September 10 (Updated 2017May 03). In: Emeterio MP, Radha HH, Clayton RA, et al., editors. Cassie(R) (Internet). [place] ([place]): [facility]; 7092-3445. Available from: https://www.ncbi.nlm.nih.gov/books/MJL6484/ Hudson Tian, Loren BLANDON, Trent X, Margarito B, Jo-Ann EB, Lena P, Rhiannon CS; ACMG Laboratory Software Engineer Mobile Committee. Venous thromboembolism laboratory testing (factor V Leiden and factor II c.*97G>A), 2018 update: a technical standard of the [employer] College [employer] and Genomics (ACMG). Nisha Med. 2017;20(12):6014-2285. doi: 10.1038/u60690-678-7025-y. Epub 2017Feb 01. PMID: 71626906. [facility] REVIEWED BY Comment . [facility] Comment: Technical Component performed at [facility] Professional Component performed by: [employer] Rosa Isela Lee, Ph.D., [facility] Director, Molecular xTurion [id number] [facility] Performed at: - [facility] [address], [place], [place] [id number] Geological Engineer: Kolton Storm [facility], Phone: [phone] 05/10/2024 8:44 AM EST 05/10/2024 8:52 AM EST Narrative [facility] - 05/15/2024 2:08 PM EST us Mya Herrmann DO LAB BLOOD ORDERABLES Final Resul t [facility] * ALL MISCELLANEOUS TEST (05/10/2024 8:44 AM EST) Pathologist [facility] MISCELLANEOUS TEST COMMENT . [facility] Comment: Test Ordered: [id number] , ID Ab Cytomegalovirus (CMV) Ab, IgG [...] 8.0 - 9.9 Positive >9.9 Comments Comment CB Reference Range: . No serological evidence of infection with Toxoplasma. If symptoms persist, submit a new specimen after three weeks. Parvovirus B19, IgG 1.3 [H ] index BN Reference Range: 0.0-0.8 Negative <0.9 Equivocal 0.9 - 1.1 Positive >1.1 Parvovirus B19, IgM 0.1 index Reference Range: 0.0-0.8 Negative <0.9 Equivocal 0.9 - 1.1 Positive >1.1 Performed at: [address] [id number] Geological Engineer: Dusty Miles PhD, Phone: [phone] Performed at: [address] [id number] Geological Engineer: China Ching MD, Phone: [phone] 05/10/2024 8:44 AM EST 05/10/2024 10:27 AM EST Narrative [facility] - 05/13/2024 3:11 PM EST [id number] , Infectious Disease Antibody Profile Mya Montez DO [facility] Final Result Performing Organization Address [facility] Co de Phone Number [facility] * (ABNORMAL) TB ANTITHROMBIN ACTIVITY (05/10/2024 8:44 AM EST) Pathologist [facility] TB ANTITHROMBIN ACTIVITY 141(A) 75 - 135 % [facility] Comment: An elevated antithrombin activity is of no known clinical significance. Direct Xa inhibitor anticoagulants such as rivaroxaban, apixaban and edoxaban will lead to spuriously elevated antithrombin activity levels possibly masking a deficiency. Performed at: [address] [id number] Geological Engineer: China Ching MD, Phone: [phone] 05/10/2024 8:44 AM EST 05/10/2024 8:52 AM EST Narrative [facility] - 05/12/2024 2:08 PM EST Mya Montez DO CLINIS[facility] Final Result Performing Organization Address City/[facility]/ZIP Co de Phone Number [facility] * PROTEIN S-ANTIGEN (05/10/2024 8:44 AM EST) [facility] PROTEIN S, TOTAL 96 60 - 150 % [facility] Comment: This test was developed and its performance characteristics determined by [facility]. It has not been cleared or approved by the Food and Drug Administration. PROTEIN S, FREE 112 61 - 136 % [facility] 05/10/2024 8:44 AM EST 05/10/2024 9:48 AM EST Narrative [facility] - 05/12/2024 2:08 PM EST [facility] LAB BLOOD ORDERABLES Final Resul t Performing Organization Address [facility] Co de Phone Number [facility] * PROTEIN C-FUNCTIONAL (05/10/2024 8:44 AM EST) [facility] PROTEIN C-FUNCTIONAL 166 73 - 180 % TB Comment: Performed at: [address] [id number] Geological Engineer: China Ching MD, Phone: [phone] 05/10/2024 8:44 AM EST 05/10/2024 9:48 AM EST Narrative CLINISYNC - 05/12/2024 2:08 PM EST [facility] BLOOD ORDERABLES Final Resul t Performing Organization Address [facility] Phone Number [facility] * METRO HOMOCYSTEINE (05/10/2024 8:44 AM EST) [facility] HOMOCYST(E)INE 5.8 0.0 - 14.5 umol/L [facility] 05/10/2024 8:44 AM EST 05/10/2024 8:52 AM EST Narrative [facility] - 05/11/2024 7:08 AM EST [facility] Final Result Performing Organization Address [facility] Phone Number [facility] * ALL IMMUNOGLOBULIN G (05/10/2024 8:44 AM EST) [facility] IMMUNOGLOBULIN G, QN 913 586 - 1602 mg/dL [facility] Comment: Performed at: [address] [id number] Geological Engineer: Dusty Miles PhD, Phone: [phone] 05/10/2024 8:44 AM EST 05/10/2024 8:52 AM EST Narrative CLIN[facility]YNC - 05/11/2024 7:08 AM EST us Mya Montez DO CLIN[facility]NC Final Result Performing Organization Address [facility] Co de Phone Number [facility] * ALL IMMUNOGLOBULIN M (05/10/2024 8:44 AM EST) [facility] IMMUNOGLOBULIN M, Q 177 26 - 217 mg/dL [facility] Comment: Performed at: [address] [id number] Geological Engineer: Dusty Miles PhD, Phone: [phone] 05/10/2024 8:44 AM EST 05/10/2024 8:52 AM EST Narrative CLIN[facility] - 05/11/2024 7:08 AM EST us Mya Montez DO CLIN[facility]NC Final Result Performing Organization Address [facility] Co de Phone Number [facility] documented in this encounter Visit Diagnoses Not on filedocumented in this encounter Care Teams Photo Technologist Relationship Specialty Start Date End Date Penelope Casas MD [address] [place] [address] PCP - General Family Medicine 11/07/23 documented as of this encounter
--- OUTSIDE RECORDS SUMMARY | 2024-12-11 10:33 | XMS_ITS | Encounter Summary ---
Author Organization [facility] Address [address] [place] [address] Care Team Providers Care Wind Tunnel Mechanic Name Role Phone Evans Casas MD Primary Care Provider [phone] Encounter Details Date Type Department Care Team (Late Contact Info) Description 05/12/2024 Abstract NOMJaylan COLVIN [address] [place] [phone] Wilton Herrmann DO [address] [place] [address] Dr [address] [place], [facility]11 Social History Tobacco Use Types Packs/Day [...] SHILOH COLVIN [address] [place] [phone] Wilton Herrmann DO [address] [place] [phone] documented as of this encounter Visit Diagnoses Not on filedocumented in this encounter Care Teams Wind Tunnel Mechanic Relationship Specialty Start Date End Date Evans Casas MD [address] [place] [address] PCP - General Family Medicine 11/07/23 documented as of this encounter
--- OUTSIDE RECORDS SUMMARY | 2024-12-11 10:33 | XMS_ITS ---
Author Organization [facility] Address [address] [place] [address] Care Team Providers Care Manager Of Digital Name Role Phone Evans Casas MD Primary Care Provider [phone] [facility] Status:Enrolled (Active) Start date:12/03/2024 Enrollment date:12/08/2024 Enrollment reason:Identified by Health Plan Case Team Name Relationship Phone Petra Whitmore LPN(Responsible Staff) Licensed [facility] Nurse [phone] Continued Care and Services Coordination
--- OUTSIDE RECORDS SUMMARY | 2024-12-11 10:33 | XMS_ITS | Encounter Summary ---
Author Organization [facility] Address [address] [place] [address] Care Team Providers Care Healthcare Specialist Name Role Phone Evans Casas MD Primary Care Provider [phone] Encounter Details Date Type Department Care Team (Late Contact Info) Description 10/28/2024 Abstract NOMJaylan COLVIN [address] [place] [address] Wilton Herrmann DO [facility] [address], [facility]11 Social History Tobacco Use Types Packs/Day [...] EDT Routine SHILOH COLVIN [address] [place] [phone] Wilton Herrmann DO [address], [place] [phone] documented as of this encounter Visit Diagnoses Not on filedocumented in this encounter Care Teams Healthcare Specialist Relationship Specialty Start Date End Date Evans Casas MD [address] [facility] [place] [address] PCP - General Family Medicine 11/07/23 documented as of this encounter
--- OUTSIDE RECORDS SUMMARY | 2024-12-11 10:33 | XMS_ITS | Clinical Summary ---
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 Take before meals. 30 tablet 5 026 Active metFORMIN XR (Glucophage-XR) 500 MG 24 hr tabletIndicatio ns:Insulin resistance Take 1 tablet (500 mg) by mouth 1 (one) time each day at the same time 30 tablet 5 026 Active enoxaparin (Lovenox) 40 MG/0.4ML injection 1 (one) time each day at the same time Active docusate sodium (Colace) 50 MG capsule Take 100 mg by mouth in the morning and 100 mg before bedtime. Active polyethylene glycol, PEG, 3350 (Glycolax) 17 GM/SCOOP powder Take 17 g by mouth Daily Active Alcohol Swabs (Alcohol Prep Pad) 70 % padsIndications :Second trimester ([facility]),13 weeks gestation of ([facility]),Multi of advanced maternal age in second trimester ([facility]),Gesta tional diabetes mellitus (GDM), antepartum, gestational diabetes method of control unspecified ([facility]),[facility] glucose tolerance test Apply 1 Pad topically Daily Use four times daily to check FSBS. 150 each 3 5 Active Blood Glucose Monitoring Suppl (Energate Glucometer) w/Device kitIndications: Second trimester ([facility]),13 weeks gestation of ([facility]),Multi of advanced maternal age in second trimester ([facility]),Gesta tional diabetes mellitus (GDM), antepartum, gestational diabetes method of control unspecified ([facility]),[facility] glucose tolerance test 1 kit Daily Use four times daily to check FSBS. In the morning prior to breakfast & 1 hour after each meal for a total of 4times daily. 1 kit 5 026 Active fluticasone (Flonase) 50 MCG/ACT nasal sprayIndication s:Sinus headache Administer 1 spray into each nostril Daily Shake gently. Before first use, prime pump. After use, clean tip and replace cap. 16 g 3 5 026 Active Lancets Ultra Thin miscIndications :Second trimester ([facility]),13 weeks gestation of ([facility]),Multi of advanced maternal age in second trimester ([facility]),Gesta tional diabetes mellitus (GDM), antepartum, gestational diabetes method of control unspecified ([facility]),[facility] glucose tolerance test 1 each by In Vitro route Daily Use to check FSBS four times daily 150 each 3 5 025 Glucose Blood (Blood Glucose Test) stripIndication s:Second trimester ([facility]),13 weeks gestation of ([facility]),Multi of advanced maternal age in second trimester ([facility]),Gesta tional diabetes mellitus (GDM), antepartum, gestational diabetes method of control unspecified ([facility]),[facility] glucose tolerance test 1 strip by In Vitro route Daily Use in the morning prior to breakfast, 1 hour after each meal for a total of 4times daily. 150 strip 3 5 025 metroNIDAZOLE (Flagyl) 500 MG tabletIndicatio ns:BV (bacterial vaginosis) Take 1 tablet (500 mg) by mouth in the morning and 1 tablet (500 mg) before bedtime. Do all this for 7 days. Do not drink alcohol while taking this medication. 14 tablet 5 025 Discontinu ed(Side effects) metroNIDAZOLE (Metrogel) 0.75 % vaginal gelIndications: BV (bacterial vaginosis) Insert into the vagina Daily for 5 days 70 g 5 025 Active Problems Problem Noted Date Diagnosed Date [...] 06/12/2023 Hematochezia 06/12/2023 Inhalation injury 06/12/2023 problem ([facility]) 06/12/2023 Psychogenic hyperventilation 06/12/2023 Suspected severe acute respi ratory syndrome coronavirus 2 (SARS-CoV-2) infection 06/12/2023 Hypoglycemia 06/12/2023 Primary hypercoagulable state ([facility]) 08/02/19 Gestational diabetes mellitu s (GDM) affecting ([facility]) 01/26/2022 Genitourinary symptoms 08/19/2021 Muscle fasciculation 08/19/2021 Anticoagulant long-term use 02/22/2020 Cerebrovascular accident (CV A) due to stenosis of middle cerebral artery 02/22/2020 Anemia complicating childbirth ([facility]) 020 First degree perineal laceration during delivery ([facility]) 01/16/2020 Acute posthemorrhagic anemia 01/16/2020 Other immediate hemorrhage ([facility]) 01/16/2020 Personal history of urinary (tract) infections 0 01/16/2020 Single live ([facility]) 01/15/2020 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[facility]) 01/08/2020 Pruritus, unspecified 01/02/2020 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) 12/30/2019 32 weeks gestation of ([facility]) 2019 Thrombocytopenia, unspecified 11/20/2019 Other general symptoms and signs 10/28/2019 Urinary tract infection 10/16/2019 Palpitations 08/26/2019 SVT (supraventricular tachycardia) 08/26/2019 Antiphospholipid antibody syndrome ([facility]) 12/2019 Other bacterial infections of unspecified site 0 06/27/2019 Less than 8 weeks gestation of ([facility]) 06/05/2019 Encounter for supervision of normal , unspecified, first trimester ([facility] 05/29/2019 Cerebral infarction, unspecified 05/16/2019 Deficiency of other specified B group vitamins 0 05/16/2019 Hyponatremia 05/16/2019 Unspecified condition associ ated with female genital organs and menstrual cycle 05/09/2019 Other specified noninflammatory disorders of vag jaxson 02/21/2019 Frequency of micturition 02/19/2019 Unspecified ovarian cyst, right side 02/06/2019 Cervicalgia 02/05/2019 Coagulation defect, unspecified ([facility]) 2018 Dizziness and giddiness 02/05/2019 senior living (current) use of 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/antip latelets 02/05/2019 Other [...] Encounters Date Type Department Care Team Description 12/11/2024 9:10 AM EDT Routine [facility] [address] [place] [address] Mya Herrmann DO 19 weeks gestation of ([facility]); Second trimester ([facility]); Thyroid disease ; Multigravida of advanced maternal age in second trimester ([facility]); Gestational diabetes mellitus (GDM), antepartum, gestational diabetes method of control unspecified ([facility]) 12/11/2024 Bamboo flowsheet [facility] [address] [place] [address] Mya Herrmann DO 12/08/2024 [facility] [place] [address] [place] [address] Petra Whitmore LPN 12/04/2024 Abstract [facility] [address] [place] [address] Petra Whitmore LPN 11/27/2024 Telephone [facility] OB[facility] [address] [place] [address] Mya Herrmann, 11/21/2024 Telephone [facility] [address] [place] [address] Lala Hess MA 11/20/2024 10:10 AM EDT Routine [facility] [address] [place] [address] Mya Herrmann DO Second trimester ([facility]); 16 weeks gestation of ([facility]); Screening, , for anatomic survey ([facility]); Vaginal discharge; Sinus headache 11/20/2024 Bamboo flowsheet [facility] OBKATHIEN [address] [place] [address] Mya Herrmann, 11/05/2024 Abstract [facility] [address] [place] [address] Susie Ojeda [place] 11/03/2024 Abstract [facility] [address] [place] [address] Susie Ojeda [place] 10/30/2024 9:30 AM EDT Routine [facility] [address] [place] [address] Mya Herrmann DO Second trimester ([facility]); 13 weeks gestation of ([facility]); Thyroid disease ; Multigravida of advanced maternal age in second trimester ([facility]); Gestational diabetes mellitus (GDM), antepartum, gestational diabetes method of control unspecified ([facility]); Elevated glucose tolerance test 10/30/2024 Bamboo flowsheet [facility] ROB[facility]ua[facility] [address] [place] [address] Mya Herrmann, DO 10/28/2024 Abstract [facility] [place] [facility] [address] [place] [address] Mya Herrmann, DO 10/28/2024 Abstract [facility] [address] [place] [address] Mya Herrmann, DO 10/28/2024 Abstract [facility] [place] [facility] [address] [place] [address] Mya Herrmann, DO 10/24/2024 Abstract [facility] [address] [place] [address] Mya Herrmann, DO 10/20/2024 1:00 PM EDT Ancillary Procedure [facility] [place] [facility] [address] [place] [address] History of miscarriage 10/09/2024 Telephone [facility] [place] [facility] [address] [place] [address] Rosi Murray LPN 10/06/2024 Telephone [facility] [address] [place] [address] Susie Ojeda MA 10/06/2024 Clinisync Result Encounter [facility] External Department Unsolicited Mya Herrmann, DO 10/02/2024 1:00 PM EDT Initial [facility] [place] [facility] [address] [place] [address] [place]: 9w3d 10/02/2024 Abstract [facility] [place] [facility] [address] [place] [address] Mya Herrmann, DO 10/01/2024 Telephone [facility] [address] [place] [address] Mya Herrmann, DO 09/18/2024 Refill [facility] [address] [place] [address] Ariane Joseph LPN History of miscarriage; Insulin resistance 09/11/2024 Abstract [facility] [address] [place] [address] Susie Ojeda MA 09/11/2024 Clinisync Result Encounter [facility] External Department Unsolicited Mya Herrmann, from Last 3 Months Family History Medical [...] (207 lb) 12/11/2024 9:28 AM EDT Height 167.6 cm (5' 6 ) 11/19/2023 1:48 PM EDT Body Mass Index 33.41 11/19/2023 1:48 PM EDT Plan of Treatment Upcoming Encounters Date Type Department Care Team (Late st Contact Info) Description 01/05/2025 2:40 PM EDT Routine [facility] [address] [place] [address] Mya Herrmann, DO [address] [place] [address] Health Maintenance Due Date Last Done Comments HPV/Cotest 10/22/2015 Influenza Vaccine (#1) 2024 Cervical Cancer Screening 02/14/2025 Pap Smear 02/14/2025 02/14/2022 Procedures Procedure Name Priority Date/Time Associated Diagnosis Comments POCT URINALYSIS DIPSTICK Routine 12/11/2024 9:36 AM EDT 19 weeks gestation of ([facility]) Second trimester ([facility]) RECURRENT VAGINITIS (HTRX) Routine 11/20/2024 12:08 PM EDT POCT URINALYSIS DIPSTICK Routine 11/20/2024 11:08 AM EDT 16 weeks gestation of ([facility]) CULTURE, URINE, ROUTINE Routine 10/30/2024 10:51 AM EDT Missed menses POCT URINALYSIS DIPSTICK Routine 10/30/2024 9:41 AM EDT Second trimester ([facility]) OB TRANSVAGINAL Routine 10/20/2024 1: 28 PM EDT History of miscarriage HBSAG SCREEN Routine 10/06/2024 10:19 AM EDT RAPID PLASMA REAGIN, QUANT Routine 10/06/2024 10:19 AM EDT HCV ANTIBODY RFX TO QUANT PCR Routine 10/06/2024 10:19 AM EDT ALL RUBELLA IGG AB Routine 10/06/2024 10 :19 AM EDT HIV AB/P24 AG WITH REFLEX Routine 10/06/2024 10:19 AM EDT MLR HEMOGLOBIN A1C Routine 10/06/2024 10 :19 AM EDT ALL THYROID STIM HORMONE Routine 10/06/2024 10:19 AM EDT ALL TYPE AND SCREEN Routine 10/06/2024 1 0:19 AM EDT BOX TEST Routine 10/06/2024 10:19 AM EDT ALL CBC WITH AUTO DIFF Routine 10/06/2024 10:19 AM EDT [facility] DRUG SCREEN RAPID (URINE) Routine 10/06/2024 9:54 AM EDT POCT URINALYSIS DIPSTICK Routine 10/02/2024 2:10 PM EDT Missed menses POCT , URINE Routine 10/02/2024 2:10 PM EDT Missed menses US OB TRANSVAGINAL 09/11/2024 11 :36 AM EDT PAP SMEAR Routine 02/14/2022 12:00 AM EDT from Last 3 Months or Most Recently Relevant to Health Maintenance Results * POCT urinalysis dipstick manually resulted (12/11/2024 9:36 AM EDT) Only the most recent of4 resultswithin the time period is included. Color, UA Yellow Clarity, UA Clear Glucose, UA Negative Negative - 1999(110) ++++ mg/dL Bilirubin, UA Negative Negative - 4(70) +++ mg/dL Ketones, UA Negative Negative - 160(16) ++++ mg/dL Spec Grav, UA 1.010 1 - 1.03 Blood, UA Negative Negative - 50 Max/mcL pH, UA 6.0 5 - 9 Protein, UA Negative Negative - 1999(20) ++++ mg/dL Urobilinogen, UA 1.0 0.2 - 12 mg/dL Leukocytes, UA Negative Negative - 500+++ John/mcL Nitrite, UA Negative Negative - Positive Urine 12/11/2024 9:36 AM EDT Mya Herrmann DO POINT OF CARE TEST ENTER/EDIT OR DERABLES Final Result * (ABNORMAL) RECURRENT VAGINITIS (HTRX) (11/20/2024 12:08 PM EDT) [facility] ATOPOBIUM VAGINAE 0 19.961 - 24.689 ppm 11/21/2024 6:55 AM EDT [facility] ATOPOBIUM VAGINAE Not Detected 19.961 - 24.689 ppm 11/21/2024 6:55 AM EDT [facility] BVAB 2,3 (BACTERIAL VAGINOSIS ASSOCIATED BACTERIA 2, 3); MOBILUNCUS SPP 25.705(A) 19.961 - 24.689 ppm 11/21/2024 6:55 AM EDT [facility] BVAB 2,3 (BACTERIAL VAGINOSIS ASSOCIATED BACTERIA 2, 3); MOBILUNCUS SPP Detected(A) 19.961 - 24.689 ppm 11/21/2024 6:55 AM EDT [facility] ALIA ALBICANS, PARAPSILOSIS, TROPICALIS 0 23.000 - 30.347 ppm 11/21/2024 6:55 AM EDT [facility] ALIA ALBICANS, PARAPSILOSIS, TROPICALIS Not Detected 23.000 - 30.347 ppm 11/21/2024 6:55 AM EDT [facility] ALIA GLABRATA 0 23.000 - 31.618 ppm 11/21/2024 6:55 AM EDT [facility] ALIA GLABRATA Not Detected 23.000 - 31.618 ppm 11/21/2024 6:55 AM EDT [facility] ALIA KRUSEI 0 23.000 - 30.873 ppm 11/21/2024 6:55 AM EDT [facility] ALIA KRUSEI Not Detected 23.000 - 30.873 ppm 11/21/2024 6:55 AM EDT [facility] CHLAMYDIA TRACHOMATIS 0 23.000 - 31.586 ppm 11/21/2024 6:55 AM EDT [facility] CHLAMYDIA TRACHOMATIS Not Detected 23.000 - 31.586 ppm 11/21/2024 6:55 AM EDT [facility] GARDNERELLA VAGINALIS 0 19.961 - 24.689 ppm 11/21/2024 6:55 AM EDT [facility] GARDNERELLA VAGINALIS Not Detected 19.961 - 24.689 ppm 11/21/2024 6:55 AM EDT [facility] MEGASPHAERA (TYPES 1, 2) 0 19.961 - 24.689 ppm 11/21/2024 6:55 AM EDT [facility] ERICKSONSPHAERA (TYPES 1, 2) Not Detected 19.961 - 24.689 ppm 11/21/2024 6:55 AM EDT [facility] NEISSERIA GONORRHOEAE 0 23.000 - 32.587 ppm 11/21/2024 6:55 AM EDT [facility] NEISSERIA GONORRHOEAE Not Detected 23.000 - 32.587 ppm 11/21/2024 6:55 AM EDT [facility] TRICHOMONAS VAGINALIS 0 23.000 - 31.995 ppm 11/21/2024 6:55 AM EDT [facility] TRICHOMONAS VAGINALIS Not Detected 23.000 - 31.995 ppm 11/21/2024 6:55 AM EDT [facility] MYCOPLASMA GENITALIUM 0 19.961 - 24.689 ppm 11/21/2024 6:55 AM EDT [facility] MYCOPLASMA GENITALIUM Not Detected 19.961 - 24.689 ppm 11/21/2024 6:55 AM EDT [facility] Tissue 11/20/2024 12:0 8 PM EDT 11/21/2024 2:30 AM EDT Mya Herrmann DO LAB BLOOD ORDERABLES Final Resul t [facility] [address] [place] [address] * Urine culture (10/30/2024 10:51 AM EDT) Urine Urine specimen obtained by clean catch procedure / Unknown us Mya Herrmann DO LAB MICROBIOLOGY - GENERAL ORDER [place] Final Result EXTERNAL LAB * US OB transvaginal (10/20/2024 1:28 PM EDT) Anatomical Region Laterality Modality Body Ultrasound 2024 8:32 AM EDT Narrative 2024 8:32 AM EDT EXAM: US OB TRANSVAGINAL HISTORY: Viability, history of miscarriages. COMPARISON: None available. TECHNIQUE: Two-dimensional transvaginal grayscale ultrasound imaging of the pelvis was performed. FINDINGS: The uterus demonstrates a normal homogeneous echotexture. The cervix measures 4.0 cm in length and the cervical os is closed. The bilateral ovaries are not visualized due to overlying bowel gas. No fluid is present within the cul-de-sac. There is a single, live intrauterine gestation identified with a heart rate of 167 beats per minute and a crown-rump length measurement of 5.2 cm, correlating to a gestational age of 11 weeks 6 days (+/- 7 days). There is no subchorionic hemorrhage visualized. A yolk sac is visualized. IMPRESSION: 1. Single, live intrauterine gestation 12 weeks, 0 days by LMP. Today's ultrasound measurements correlate with a gestational age of 11 weeks 6 days (+/- 7 days). KLAUDIA by today's ultrasound is 05/05/2025. Interpreted by: Electronically signed by CARLOS AGARWAL II, MD, PHD at 21-Oct-2024 08:31:21 AM [facility] Procedure Note Carlos Agarwal MD - 2024 EXAM: US OB TRANSVAGINAL HISTORY: Viability, history of miscarriages. COMPARISON: None available. TECHNIQUE: Two-dimensional transvaginal grayscale ultrasound imaging ofthe pelvis was performed. FINDINGS: The uterus demonstrates a normal homogeneous echotexture. The cervixmeasures 4.0 cm in length and the cervical os is closed. The bilateral ovaries are not visualized due to overlying bowel gas. No fluid is present within the cul-de-sac. There is a single, live intrauterine gestation identified with a fetalheart rate of 167 beats per minute and a crown-rump length measurement of5.2 cm, correlating to a gestational age of 11 weeks 6 days (+/- 7 days).There is no subchorionic hemorrhage visualized. A yolk sac isvisualized. IMPRESSION: 1. Single, live intrauterine gestation 12 weeks, 0 days by LMP. Today'sultrasound measurements correlate with a gestational age of 11 weeks 6days (+/- 7 days). KLAUDIA by today's ultrasound is 05/05/2025. Interpreted by: Electronically signed by CARLOS AGARWAL II, MD, PHD 08:31:21 AM [facility] us Mya Montez DO IMG OB US PROCEDURES Final Resul t * BOX TEST (10/06/2024 10:19 AM EDT) Pathologist [facility] BOX TEST SENT OUT [facility] [address] [facility] [address] 10/06/24 [facility] 10/06/2024 10:1 9 AM EDT 10/06/2024 10:33 AM EDT Narrative [facility] - 10/06/2024 10:34 AM EDT [facility] B[facility] us Mya Montez DO LAB BLOOD ORDERABLES Final Resul t [facility] * HBSAG SCREEN (10/06/2024 10:19 AM EDT) Pathologist [facility] HBSAG SCREEN Negative Negative [facility] Comment: Performed at: [address] [id number] Juice Mixer: Dusty Miles PhD, Phone: [phone] 10/06/2024 10:1 9 AM EDT 10/06/2024 12:31 PM EDT Narrative [facility] - 10/07/2024 12:08 PM EDT Mya Montez DO LAB BLOOD ORDERABLES Final Resul t Performing Organization Address [facility] Co de Phone Number [facility] * RAPID PLASMA REAGIN, QUANT (10/06/2024 10:19 AM EDT) RAPID PLASMA REAGIN, QUANT Non Reactive NonRea<1: 1 titer [facility] Comment: Please Note: This test does not meet current guidelines for screening and diagnosis of syphilis. This test is intended for following treatment response in patients being treated for syphilis infection. To screen for syphilis infection, a reflex cascade that includes both RPR and a treponema-specific assay should be utilized, such as Treponema pallidum (Syphilis) Screening [place] (491878) or Rapid Plasma Reagin (RPR) Test With Reflex to Quantitative RPR and Confirmatory Treponema pallidum Antibodies (110981). Performed at: [facility] [address] [id number] Juice Mixer: Dusty Miles PhD, Phone: [phone] 10/06/2024 10:1 9 AM EDT 10/06/2024 12:31 PM EDT Narrative [facility] - 10/07/2024 12:08 PM EDT [employer] DO LAB BLOOD ORDERABLES Final Resul t Performing Organization Address City/[facility] Co de Phone Number [facility] * HIV AB/P24 AG WITH REFLEX (10/06/2024 10:19 AM EDT) HIV AB/P24 AG SCREEN Non Reactive Non Reactive [facility] Comment: HIV-1/HIV-2 antibodies and HIV-1 p24 antigen were NOT detected. There is no laboratory evidence of HIV infection. HIV Negative Performed at: [address] [id number] Juice Mixer: Dusty Miles PhD, Phone: [phone] 10/06/2024 10:1 9 AM EDT 10/06/2024 12:31 PM EDT Narrative [facility] - 10/07/2024 5:07 AM EDT Mya Montez DO LAB BLOOD ORDERABLES Final Resul t Performing Organization Address [facility]/ZIP Co de Phone Number [facility] * HCV ANTIBODY RFX TO QUANT PCR (10/06/2024 10:19 AM EDT) [facility] HCV AB Non Reactive Non Reactive [facility] INTERPRETATION: Comment . [facility] Comment: Not infected with HCV unless early or acute infection is suspected (which may be delayed in an immunocompromised individual), or other evidence exists to indicate HCV infection. Performed at: [facility] [id number] Juice Mixer: Dusty Miles PhD, Phone: [phone] 10/06/2024 10:1 9 AM EDT 10/06/2024 12:31 PM EDT Narrative [facility] - 10/07/2024 10:08 AM EDT [employer] DO LAB BLOOD ORDERABLES Final Resul t Performing Organization Address [facility] Co de Phone Number [facility] * MLR HEMOGLOBIN A1C (10/06/2024 10:19 AM EDT) [facility] GLYCOHEMOGLOBIN A1C 5.9 4.5 - 6.2 % [facility] Comment: ADA RECOMMENDED LIMIT 4.0 - 6.0 ADA THERAPEUTIC TARGET < 7.0 ACTION SUGGESTED > 7.0 ESTIMATED AVERAGE GLUCOSE 123 mg/dL [facility] 10/06/2024 10:1 9 AM EDT 10/06/2024 12:16 PM EDT Narrative [facility] - 10/06/2024 12:16 PM EDT Mya Montez DO [facility] Final Result Performing Organization Address City/[facility]/ZIP Co de Phone Number [facility] * ALL TYPE AND SCREEN (10/06/2024 10:19 AM EDT) [facility] BLOOD TYPE B Negative [facility] ANTIBODY SCREEN NEGATIVE [facility] 10/06/2024 10:1 9 AM EDT 10/06/2024 10:35 AM EDT Narrative [facility] - 10/06/2024 11:04 AM EDT [facility] , [place] Mya Montez DO [facility] Final Result Performing Organization Address City/[facility]/ZIP Co de Phone Number [facility] * ALL THYROID STIM HORMONE (10/06/2024 10:19 AM EDT) Pathologist [facility] THYROID STIMULATING HORMONE 1.131 0.358 - 3.740 uIU/mL [facility] 10/06/2024 10:1 9 AM EDT 10/06/2024 11:48 AM EDT Narrative [facility] - 10/06/2024 11:49 AM EDT us Mya Montez DO [facility] Final Result Performing Organization Address [facility] Co de Phone Number [facility] * (ABNORMAL) ALL RUBELLA IGG AB (10/06/2024 10:19 AM EDT) [facility] RUBELLA ANTIBODIES, IGG <0.90(A) Immune >0.99 index [facility] Comment: Non-immune <0.90 Equivocal 0.90 - 0.99 Immune >0.99 Performed at: [address] [id number] Juice Mixer: Dusty Miles PhD, Phone: [phone] 10/06/2024 10:1 9 AM EDT 10/06/2024 12:31 PM EDT Narrative [facility] - 10/07/2024 10:08 AM EDT us Mya Montez DO [facility] Final Result Performing Organization Address [facility]/ZIP Co de Phone Number [facility] * (ABNORMAL) ALL CBC WITH AUTO DIFF (10/06/2024 10:19 AM EDT) [facility] WBC 8.9 4.0 - 11.0 10 3/uL [facility] RBC 4.42 4.20 - 5.40 10 6/uL [facility] HGB 13.2 12.0 - 16.0 g/dL [facility] HCT 38.1 36.0 - 48.0 % [facility] MCV 86.2 81.0 - 99.0 fL [facility] MCH 29.9 26.7 - 34.0 pg [facility] TBH MCHC 34.6 29.9 - 35.2 g/dL TBH TBH RDW 14.0 11.0 - 15.0 % TBH TBH PLT 309 150 - 450 10 3/uL TBH TBH MPV 10.1 9.5 - 13.5 fL TBH NEUTROPHILS PERCENT AUTO 62.8 43.0 - 75.0 % TBH LYMPHOCYTES PERCENT AUTO 29.1 20.5 - 60.0 % TBH MONOCYTES PERCENT AUTO 7.2 1.7 - 12.0 % TBH TBH EO % 0.4(L) 0.9 - 7.0 % TBH BASOPHILS PERCENT AUTO 0.2 0.2 - 2.0 % TBH IMMATURE GRANULOCYTES PCT AUTO 0.3 0.0 - 0.5 % TBH NEUTROPHILS ABSOLUTE AUTO 5.6 1.4 - 6.5 10 3/uL TBH LYMPHOCYTES ABSOLUTE AUTO 2.6 1.2 - 3.8 10 3/uL TBH MONOCYTES ABSOLUTE AUTO 0.6 0.3 - 0.8 10 3/uL TBH TBH EO # 0.0 0.0 - 0.7 10 3/uL TBH BASOPHILS ABSOLUTE AUTO 0.0 0.0 - 0.1 10 3/uL TBH IMMATURE GRANULOCYTES ABS AUTO 0.03 0.00 - 0.03 10 3/uL TBH 10/06/2024 10:1 9 AM EDT 10/06/2024 10:31 AM EDT Narrative CLINISYNC - 10/06/2024 10:32 AM EDT us Mya Montez DO CLINISYNC Final Result [facility]IN[facility] TB * TB DRUG SCREEN RAPID (URINE) (10/06/2024 9:54 AM EDT) CANNABINOID SCREEN URINE NEGATIVE NEGATIVE TBH PHENCYCLIDINE SCREEN URINE NEGATIVE NEGATIVE TBH COCAINE SCREEN URINE NEGATIVE NEGATIVE TBH METHAMPHETAMINES SCREEN URINE NEGATIVE NEGATIVE TBH OPIATE SCREEN URINE NEGATIVE NEGATIVE TBH AMPHETAMINE SCREEN URINE NEGATIVE NEGATIVE TBH BENZODIAZEPINES SCREEN URINE NEGATIVE NEGATIVE TBH TRICYCLIC ANTIDEPRESSANT URINE NEGATIVE NEGATIVE TBH METHADONE SCREEN URINE NEGATIVE NEGATIVE TBH BARBITURATES SCREEN URINE NEGATIVE NEGATIVE TBH OXYCODONE SCREEN URINE NEGATIVE NEGATIVE TBH BUPRENORPHINE SCREEN URINE NEGATIVE NEGATIVE TBH Comment: DRUG CLASS TEST SYSTEM CUT-OFF CONCENTRATIONS ARE FOLLOWS: AMP (Amphetamine): 500 ng/mL BAR (Barbiturates): 200 ng/mL BZO (Benzodiazepines): 150 ng/mL BUP (Buprenorphine): 10 ng/mL INDIA (Cocaine): 150 ng/mL mAMP (Methamphetamine): 500 ng/mL MTD (Methadone): 200 ng/mL OPI (Opiates): 100 ng/mL OXY (Oxycodone): 100 ng/mL PCP (Phencyclidine): 25 ng/mL THC (Cannabinoids): 50 ng/mL TCA (Trycyclic Antidepressants): 300 ng/mL 10/06/2024 9:54 AM EDT 10/06/2024 10:34 AM EDT Narrative CLINISYNC - 10/06/2024 10:48 AM EDT us Mya Montez DO CLINISYNC Final Result [facility] * (ABNORMAL) POCT , urine manually resulted (10/02/2024 2:10 PM EDT) Preg Test, Ur Positive Negative Urine 10/02/2024 2:10 PM EDT us Mya Montez DO POINT OF CARE TEST ENTER/EDIT OR DERABLES Final Result * US OB TRANSVAGINAL (09/11/2024 11:36 AM EDT) Anatomical Region Laterality Modality Other 09/11/2024 11:3 6 AM EDT Narrative 09/11/2024 11:38 AM EDT [address] [address] Ultrasound Report Signed Patient: MADHU RENDON MR#: [id number] : 1985 Acct:[id number] Age/Sex: 38 / F ADM Date: 09/11/24 Loc: US Attending Dr: Mya Herrmann D.O. Ordering Physician: Mya Herrmann D.O. Date of Service: 09/11/24 Procedure(s): US OB transvaginal Accession Number(s): [id number] cc: Mya Herrmann D.O.; PENELOPE CASAS [place] [id number] Patient Name: MADHU RENDON MRN: [id number] date: 1985 Sex: F Assigned Patient Location: US Current Patient Location: US Accession/Order Number: [id number] Exam Date: 09/11/2024 11:34 Report Date: 09/11/2024 [...] Montano M.D. 09/11/2024 11:36 AM Dictation Location: [place] [address] Electronically authenticated by: [id number] Y Date: 09/11/2024 11:36 Dictated By: Baljinder Montano M.D. Signed By: 09/11/24 1138 DD/ 1136 TD/TT: Kiln Burner Helper: Procedure Note Radiology, Radiologist, - 09/11/2024 [place] [address] Ultrasound Report Signed Patient: MADHU RENDON SMR#: [id number] : 1985Acct:[id number] Age/Sex: 38 / FADM Date: 09/11/24 Loc: US Attending Dr: Mya Herrmann D.O. Ordering Physician: Mya Herrmann D.O. Date of Service: 09/11/24 Procedure(s): US OB transvaginal Accession Number(s): [id number] cc: Mya Herrmann D.O.; PENELOPE CASAS [place] [address] Patient Name: MADHU RENDON MRN: [id number] date: 1985 Sex: F Assigned Patient Location: US Current Patient Location: US Accession/Order Number: [id number] Exam Date: 09/11/2024 11:34 Report Date: 09/11/2024 [...] normal heart rate. Impression dictated by: Baljinder Monatno M.D. 09/11/2024 11:36 AM Dictation Location: [place] [address] Electronically authenticated by: [id number] Y Date: 1:36 Dictated By: Baljinder Montano M.D. Signed By:09/11/24 1138 DD/ 1136 TD/TT: Kiln Burner Helper: Mya Montez DO CLINISYNC IMAGING Final Result * Pap Smear (02/14/2022 12:00 AM EDT) Swab Cervical swab / Unknown Montez Nurse [facility] Ob LAB CYTOLOGY ORDERABLES Final Result EXTERNAL LAB from Last 3 Months or Most Recently Relevant to Health Maintenance Insurance [employer] MEDICAID [place] Care Teams Elevator Installer Apprentice Relationship Specialty Start Date End Date Penelope Casas MD [address] [place] [place] [address] PCP - General Family Medicine 11/07/23
--- OUTSIDE RECORDS SUMMARY | 2024-12-11 10:33 | XMS_ITS | Encounter Summary ---
Author Organization [facility] Address [address] [place] [address] [place] [address] Care Team Providers Care Commercial Kitchen Service Technician Name Role Phone Evans Casas MD Primary Care Provider [phone] Encounter Details Date Type Department Care Team (Late Contact Info) Description 05/29/2024 Abstract NOMJay[facility] COLVIN [address] [place] [phone] Wilton Herrmann DO [address] [place] [address] Dr uJne [place], [facility]11 Social History Tobacco [...] 2:40 PM EDT Routine SHILOH COLVIN [address] [place] [phone] Wilton Herrmann DO [address] [facility] [address] [place] [phone] documented as of this encounter Visit Diagnoses Not on filedocumented in this encounter Care Teams Commercial Kitchen Service Technician Relationship Specialty Start Date End Date Evans Casas MD [address] [place] [address] PCP - General Family Medicine 11/07/23 documented as of this encounter
--- OUTSIDE RECORDS SUMMARY | 2024-12-11 10:33 | XMS_ITS | Encounter Summary ---
Author Organization [facility] Address [address] [place] [address] Care Team Providers Care Plant Operator/Shift Supervisor Name Role Phone Evans Casas MD Primary Care Provider [phone] Encounter Details Date Type Department Care Team (Late Contact Info) Description 10/28/2024 Abstract NOMJaylan COLVIN [address] [place] [address] Wilton Herrmann DO [facility] Inga Pickett, [facility]11 Social History Tobacco Use Types Packs/Day [...] EDT Routine SHILOH COLVIN [address] [place] [phone] Wilton Herrmann DO [address] [place], [place] [phone] documented as of this encounter Visit Diagnoses Not on filedocumented in this encounter Care Teams Plant Operator/Shift Supervisor Relationship Specialty Start Date End Date Evans Casas MD [address] [facility] [place] [address] PCP - General Family Medicine 11/07/23 documented as of this encounter
--- OUTSIDE RECORDS SUMMARY | 2024-12-11 10:33 | XMS_ITS | Encounter Summary ---
Author Organization [facility] Address [address] [place] [address] Care Team Providers Care Gym Manager Name Role Phone Evans Casas MD Primary Care Provider [phone] Encounter Details Date Type Department Care Team (Late Contact Info) Description 10/28/2024 Abstract NOMJaylan COLVIN [address] [place] [address] Wilton Herrmann DO [facility] Inga Pickett, [facility]11 Social History Tobacco Use Types Packs/Day [...] PM EDT Routine SHILOH COLVIN [address] [place] [phone] Wilton Herrmann DO [address] [place], [place] [phone] documented as of this encounter Visit Diagnoses Not on filedocumented in this encounter Care Teams Gym Manager Relationship Specialty Start Date End Date Evans Casas MD [address] [facility] [place] [address] PCP - General Family Medicine 11/07/23 documented as of this encounter
--- OUTSIDE RECORDS SUMMARY | 2024-12-11 10:33 | XMS_ITS | Encounter Summary ---
Author Organization [facility] Address [address] [place] [address] Care Team Providers Care Powder Worker Name Role Phone Evans Casas MD Primary Care Provider [phone] Encounter Details Date Type Department Care Team (Late Contact Info) Description 07/07/2024 Abstract NOMJaylan COLVIN [address] [facility] [place] [phone] Wilton Herrmann DO [address] [place] [address] Dr June [place]ett, [facility]11 Social History Tobacco Use Types Packs/Day [...] EDT Routine SHILOH COLVIN [address] [place] [phone] Wilton Herrmann DO [address] [facility] [address] [place], [place] [phone] documented as of this encounter Visit Diagnoses Not on filedocumented in this encounter Care Teams Powder Worker Relationship Specialty Start Date End Date Evans Casas MD [address] [place] [address] PCP - General Family Medicine 11/07/23 documented as of this encounter
--- OUTSIDE RECORDS SUMMARY | 2024-12-11 10:33 | XMS_ITS | Encounter Summary ---
Author Organization [facility] [employer] [facility] tem Address [id number] [address] [place] [address] Care Team Providers Care Geodetic Surveyor Name Role Phone Augusto Evans Tony DO Primary Care Provider [phone] Encounter Details Date Type Department Care Team ([facility] Contact Info) Description 11/04/2024 Orders Only Maternal- Medicine at [facility] [address] [place] [phone] Ref Prov, [place] [address] Social History Tobacco Use Types Packs/Day Years [...] Department Care Team (Late Contact Info) Description 12/17/2024 1:30 PM EDT Telemedicine Maternal- Medicine at [facility] [address] [place] [phone] Alisa Saba, PANTOGRAPH OPERATOR-SUPERVISOR [employer] [address] [place], [place] [phone] 01/01/2025 1:00 PM EDT Appointment Maternal Medicine [place] [address] [facility] [address] [place] [address] 01/01/2025 2:30 PM EDT Telemedicine Maternal Medicine [place] [address] [facility] [address] [place] [address] Wilfrid Medina MD [address] [facility], [address] [place] [address] documented as of this encounter Procedures Procedure Name Priority Date/Time Associated Diagnosis Comments UNLISTED LAB TEST Routine 10/27/2024 9:43 AM EDT documented in this encounter Results * Unlisted Lab Test (10/27/2024 9:43 AM EDT) us Wilton Herrmann DO LAB BLOOD ORDERABLES Final Resu lt MANUALLY TRANSCRIBED RESULTS documented in this encounter Visit Diagnoses Not on filedocumented in this encounter Care Teams Geodetic Surveyor Relationship Specialty Start Date End Date Evans Casas DO PCP - General Family Medicine 07/07/19 documented as of this encounter
--- OUTSIDE RECORDS SUMMARY | 2024-12-11 10:33 | XMS_ITS | Encounter Summary ---
Author Organization [facility] Address [address] [place] [address] Care Team Providers Care Manager Of Digital Name Role Phone Evans Casas MD Primary Care Provider [phone] Encounter Details Date Type Department Care Team (Late st Contact Info) Description 12/08/2024 Patient Outreach [facility] [address] [place] [phone] Petra Whitmore LPN [address] [place] [address] Social History Tobacco Use Types Packs/Day Years [...] on file documented as of this encounter Functional Status * Over the past 2 weeks, how often have you been bothered by any of the following problems? Question Answer Date of Assessment Author Little interest or pleasure in doing things Not at all 12/08/2024 1:36 PM EDT Petra Whitmore LPN Feeling down, depressed, or hopeless Not at all 12/08/2024 1:36 PM EDT Petra Whitmore LPN Patient Health Questionnaire -2 Score 0 12/08/2024 1:36 PM EDT Petra Whitmore LPN documented as of this encounter Progress Notes * Petra Whitmore LPN - 12/08/2024 1:18 PM EDT Initial Outreach. Call to pt. Pt reports she feels good. Appetite and sleep are adequate although appetite is less than previous pregnancies. Bowels are regular. Pt denies any depression or difficulty coping at this time. Pt voices a few concerns that she intends to speak with Dr. Herrmann about at her appt this week. Her concerns are re a BV infection with some lingering symptoms. New GDM diagnosisraises concerns for pt due to she reports she easily experiences hypoglycemia and possible insulin causes concern for her. Meds reconciled. Pt agrees to monthly outreach. Next OB OV 12/11/2024. documented in this encounter Plan of Treatment Upcoming Encounters Date Type Department Care Team (Late st Contact Info) Description 01/05/2025 2:40 PM EDT Routine [facility] [address] [facility] [place] [address] Wilton Herrmann DO [address] [place] [address] documented as of this encounter Visit Diagnoses Not on filedocumented in this encounter Care Teams Manager Of Digital Relationship Specialty Start Date End Date Evans Casas MD [address] [place] [address] PCP - General Family Medicine 11/07/23 documented as of this encounter
--- OUTSIDE RECORDS SUMMARY | 2024-12-11 10:33 | XMS_ITS | Encounter Summary ---
Author Organization [facility] Address [address] [place] [address] [place] [address] Care Team Providers Care Starch Dumper Name Role Phone Evans Casas MD Primary Care Provider [phone] Encounter Details Date Type Department Care Team (Late Contact Info) Description 05/07/2024 Abstract NOMJaylan COLVIN [address] [facility] [phone] Wilton Herrmann DO [address] [place] [address] Dr June [place], [facility]11 Social History Tobacco Use Types Packs/Day [...] 2:40 PM EDT Routine SHILOH COLVIN [address] [facility] [place] [phone] Wilton Herrmann DO [address] [facility] [address] [place] [phone] documented as of this encounter Visit Diagnoses Not on filedocumented in this encounter Care Teams Starch Dumper Relationship Specialty Start Date End Date Evans Casas MD [address] [place] [address] PCP - General Family Medicine 11/07/23 documented as of this encounter
--- OUTSIDE RECORDS SUMMARY | 2024-12-11 10:33 | XMS_ITS | Clinical Summary ---
Author Organization [employer] [facility] Address [id number] [address] [place] [address] Care Team Providers Care Marine Safety Officer Name Role Phone Evans Casas DO Primary Care Provider Allergies Active Allergy Reactions Criticality Noted Date Comments Ciprofloxacin Dizziness 06/19/2019 Lactalbumin Other (See Comments) Low 05/25/2017 Other reaction(s): GI Upset Crampy and gassy Lactose GI Disturbance 09/10/2017 Diarrhea Milk Containing Products (Dairy) Other (See Comments) Low 05/25/2017 Crampy and gassy Medications 19 29 mg iron- 1 mg tablet,chewable Chew 1 tablet and swallow daily. 6 9 Active levothyroxine (SYNTHROID) 25 MCG tablet Take 25 mcg by mouth daily. Active docusate sodium (COLACE) 100 mg capsule Take 100 mg by mouth daily. Active polyethylene glycol (GLYCOLAX) 17 gram packet Take 17 g by mouth daily. Active alcohol swabs pads, medicated Apply 1 each topically in the morning and 1 each at noon and 1 each in the evening and 1 each before bedtime. Clean off finger before testing blood glucose. Active blood-glucose meter (BLOOD GLUCOSE MONITORING) kit 1 each by other route in the morning. Use to check blood sugar 4 times daily . Active blood sugar diagnostic (glucose blood) strip 1 strip by other route as needed for low blood sugar or high blood sugar. Use to check blood sugar 4 times daily Active lancets misc 1 each in the morning and 1 each at noon and 1 each in the evening and 1 each before bedtime. Use to check blood sugar 4 times daily. Active CEPHalexin (KEFLEX) 500 mg capsule Take 1 capsule (500 mg total) by mouth in the morning and 1 capsule (500 mg total) at noon and 1 capsule (500 mg total) in the evening and 1 capsule (500 mg total) before bedtime. Active progesterone (PROMETRIUM) 200 mg capsule Take 1 capsule (200 mg total) by mouth in the morning. Active metFORMIN XR (GLUCOPHAGE XR) 500 mg 24 hr tablet Take 1 tablet (500 mg total) by mouth daily with breakfast. Active azithromycin (ZITHROMAX) 250 mg tablet Take 1 tablet (250 mg total) by mouth in the morning. Take 2 tablets the first day, then 1 tablet daily for 4 days. Active insulin glargine (LANTUS SOLOSTAR U-100 INSULIN) 100 unit/mL (3 mL) insulin pen Prime with 2 units then inject 4 units SQ into abd 15 mL 3 5 Active pen needle, diabetic (BD ULTRA-FINE ENID PEN NEEDLE) 32 gauge x 5/32 needle Use a new needle with each injection ( 1- 5 times per day) 100 each 3 5 Active Active Problems Problem Noted Date Diagnosed Date Anemia 11/04/2024 AMA (advanced maternal age) multigravida 35+ 11/2024 Antiphospholipid syndrome 11/04/2024 Hypothyroid 11/04/2024 Stroke 11/04/2024 Antiphospholipid syndrome co mplicating , antepartum 07/07/2019 Estimated Date of Delivery Comme nts Yes 05/04/2025 Based on last me nstrual period of 07/28/2024 Resolved Problems Problem Noted Date Diagnosed Date Resolved Date Cerebral infarction, unspecified 05/16/2019 07/07/2019 Migraine without aura and wi thout status migrainosus, not intractable 09/12/2017 07/07/2019 Encounters Date Type Department Care Team Description 12/03/2024 2:00 PM EDT Telemedicine Maternal- Medicine at [facility] [address] [place] [address] Alisa Saba, DRILLER AND REAMER-TITLE I COORDINATOR Insulin controlled gestational diabetes mellitus (GDM) in second trimester (Primary Dx) 12/03/2024 Telephone Maternal- Medicine at [facility] [address] [place] [address] Anni Abreu, [facility] 12/02/2024 Travel 11/19/2024 9:30 AM EDT Support Visit Maternal- Medicine at [facility] [address] [place] [address] Lorena Enciso RN Crawford, Sarah, PRISCILLA Sanchez, Cindy, RD Gestational diabetes mellitus (GDM), antepartum, gestational diabetes method of control unspecified (Primary Dx) 11/19/2024 Travel 11/04/2024 Abstract Maternal- Medicine at [facility] [address] [place] [address] Wilfrid Medina MD 11/04/2024 Orders Only Maternal- Medicine at [facility] [address] [place] [address] Ref Prov, Not In System 11/04/2024 Abstract Maternal- Medicine at [facility] [address] [place] [address] Wilfrid Medina MD 10/13/2024 Telephone Maternal- Medicine at [facility] [address] [place] [address] Margo Khan RN 10/13/2024 Orders Only Maternal- Medicine at [facility] [address] [place] [address] Margo Khan, MARSHA Gestational diabetes mellitus (GDM), antepartum, gestational diabetes method of control unspecified (Primary Dx) from Last 3 Months Family History Medical History Relation Name Comments Diabetes Father T2DM Stroke Father Mental illness Maternal Grandmother Cancer Paternal Grandfather Diabetes Paternal Grandfather T2DM Cancer Paternal Grandmother Diabetes Paternal Grandmother T2DM Diabetes Sister T2DM Relation Name Status Comments Father Maternal Grandmother Paternal Grandfather Paternal Grandmother Sister [...] Sign Reading Time Taken Comments Blood Pressure 133/74 07/07/2019 11:49 AM EDT Pulse 89 07/07/2019 11:49 AM EDT Temperature - - Respiratory Rate - - Oxygen Saturation - - Inhaled Oxygen Concentration - - Weight 94.8 kg (209 lb) 11/19/2024 1:07 PM EDT Height 167.6 cm (5' 6 ) 07/07/2019 11:49 AM EDT Body Mass Index 33.73 07/07/2019 11:49 AM EDT Plan of Treatment Upcoming Encounters Date Type Department Care Team (Late st Contact Info) Description 12/17/2024 1:30 PM EDT Telemedicine Maternal- Medicine at [facility] [address] [place] [address] [facility] [address] [place] [address] 01/01/2025 1:00 PM EDT Appointment Maternal Medicine [place] [address] [phone] 01/01/2025 2:30 PM EDT Telemedicine Maternal Medicine [place] [address] [address] Wilfrid Medina MD [address] [address] Health Maintenance Due Date Last Done Comments Depression Screening 1997 Tobacco Screening 1997 DTaP,Tdap and Td Vaccines (2 - Td or Tdap) 07/03/2024 07/03/2014 Influenza Vaccine 12/29/2024 Pap Smear 02/14/2025 02/14/2022 Adult BMI Screening 11/19/2025 11/19/2024 Medical Devices Not on file Procedures Procedure Name Priority Date/Time Associated Diagnosis Comments GLUCOSE RANDOM OR FASTING Routine 11/19/2024 Gestational diabetes mellitus (GDM), antepartum, gestational diabetes method of control unspecified TSH Routine 10/28/2024 UNLISTED LAB TEST Routine 10/27/2024 9:4 3 AM EDT TYPE AND SCREEN Routine 10/06/2024 HEPATITIS B SURFACE ANTIGEN Routine 10/06/2024 HIV 1&2 AB/AG SCREEN (P24 AG) Routine 10/06/2024 HEMOGLOBIN A1C Routine 10/06/2024 TSH Routine 10/06/2024 DRUG SCREEN, URINE Routine 10/06/2024 from Last 3 Months Results * Glucose random or fasting- POCT (11/19/2024) External Glucose Fasting Or Random (Fbs) 94 MANUALLY TRANSCRIBED RESULTS Blood Venous blood / Unknown 11/19/2024 us Star Waggoner MD LAB BLOOD ORDERABLES Final Re sult MANUALLY TRANSCRIBED RESULTS * TSH (10/28/2024) Only the most recent of2 resultswithin the time period is included. Thyroid Stimulating (3Rd Generation) Hormone/ Tsh 1.25 MANUALLY TRANSCRIBED RESULTS Blood Venous blood / Unknown us Not In System Ref Prov LAB BLOOD ORDERABLES Obdulia l Result MANUALLY TRANSCRIBED RESULTS * Unlisted Lab Test (10/27/2024 9:43 AM EDT) us Wilton R Montez DO LAB BLOOD ORDERABLES Final Resu lt Performing Organization Address [facility] de Phone Number MANUALLY TRANSCRIBED RESULTS * HIV 1&2 AB/AG Screen (P24 AG) (10/06/2024) HIV 1&2 AB/AG Negative MANUAL LY TRANSCRIBED RESULTS Blood Venous blood / Unknown us Not In System Ref Prov LAB BLOOD ORDERABLES Obdulia l Result Performing Organization Address [facility] de Phone Number MANUALLY TRANSCRIBED RESULTS * Drug Screen, Urine (10/06/2024) Ecstasy Negative MANUALLY TRANSCRIBED RESULTS Methadone Negative MANUALLY TRANSCRIBED RESULTS Opiates Negative MANUALLY TRANSCRIBED RESULTS Amphetamine/Methamp hetamine Negative MANUALLY TRANSCRIBED RESULTS Cocaine Metabolite Negative M ANUALLY TRANSCRIBED RESULTS Phencyclidine Negative MANUAL LY TRANSCRIBED RESULTS Thc Marijuana, Urine Negative MANUALLY TRANSCRIBED RESULTS Oxycodone Negative MANUALLY TRANSCRIBED RESULTS Barbiturates Negative MANUALL Y TRANSCRIBED RESULTS Benzodiazepines Negative MANU ALLY TRANSCRIBED RESULTS Urine us Not In System Ref Prov URINE ORDERABLES Final Re sult Performing Organization Address [facility] de Phone Number MANUALLY TRANSCRIBED RESULTS * Hepatitis B surface antigen (10/06/2024) Hepatitis B Surface Antigen Negative MANUALLY TRANSCRIBED RESULTS Blood Venous blood / Unknown us Not In System Ref Prov LAB BLOOD ORDERABLES Obdulia l Result Performing Organization Address [facility] de Phone Number MANUALLY TRANSCRIBED RESULTS * Type and screen (10/06/2024) Abo/Rh(D) B Negative MANUALLY TRANSCRIBED RESULTS Antibody Screen Negative MANUALLY TRANSCRIBED RESULTS Blood Venous blood / Unknown us Not In System Ref Prov BLOOD BANK TEST ORDERABLE S Final Result MANUALLY TRANSCRIBED RESULTS * Hemoglobin A1c (10/06/2024) Hemoglobin A1C 5.9 4.0 - 6.0 % MANUALLY TRANSCRIBED RESULTS Blood Venous blood / Unknown us Scanning Provider External LAB BLOOD ORDERABLES Final Result MANUALLY TRANSCRIBED RESULTS from Last 3 Months Insurance [facility] MEDICAID Care Teams Marine Safety Officer Relationship Specialty Start Date End Date Evans Casas DO PCP - General Family Medicine 07/07/19
--- OUTSIDE RECORDS SUMMARY | 2024-12-11 10:33 | XMS_ITS | Encounter Summary ---
Author Organization [facility] Address [address] [place] [address] Care Team Providers Care Caretaker Grounds Name Role Phone Evans Casas MD Primary Care Provider [phone] Encounter Details Date Type Department Care Team (Late Contact Info) Description 05/19/2024 Abstract NOMJaylan COLVIN [address] [facility] [place] [phone] Wilton Herrmann DO [address] [place] [address] Dr June Pickett, [facility]11 Social History Tobacco Use Types Packs/Day Years [...] 2:40 PM EDT Routine SHILOH COLVIN [address] [facility] [facility] [place] [address] Wilton Herrmann DO [address] [facility] [address] [place] [id number] documented as of this encounter Visit Diagnoses Not on filedocumented in this encounter Care Teams Caretaker Grounds Relationship Specialty Start Date End Date Evans Casas MD [address] [address] PCP - General Family Medicine 11/07/23 documented as of this encounter
--- OUTSIDE RECORDS SUMMARY | 2024-12-11 10:33 | XMS_ITS | Encounter Summary ---
Author Organization [facility] Address [address] [address] Care Team Providers Care Robot Technician Name Role Phone Evans Casas MD Primary Care Provider [phone] Encounter Details Date Type Department Care Team (Late Contact Info) Description 10/02/2024 Abstract SHILOH COLVIN [address] [place] [address] Wilton Herrmann DO [facility] Inga Pickett, [facility]11 Social History Tobacco Use Types Packs/Day Years [...] EDT Routine SHILOH COLVIN [address] [place] [address] Wilton Herrmann DO [address] [place], [place] [id number] documented as of this encounter Visit Diagnoses Not on filedocumented in this encounter Care Teams Robot Technician Relationship Specialty Start Date End Date Evans Casas MD [address] [facility] [place] [address] PCP - General Family Medicine 11/07/23 documented as of this encounter
--- OUTSIDE RECORDS SUMMARY | 2024-12-11 10:34 | XMS_ITS | Encounter Summary ---
Author Organization [facility] Address [address] [place] [address] Care Team Providers Care Field Artillery Crewmember Name Role Phone Evans Casas MD Primary Care Provider [phone] Encounter Details Date Type Department Care Team (Late Contact Info) Description 03/04/2024 Abstract NOMJaylan COLVIN [address] [facility] [place] [phone] Wilton Herrmann DO [address] [place] [address] Dr June Pickett, [facility]11 Social [...] COLVIN [address] [place] [address] Wilton Herrmann DO [address] [facility] [address] June [place] [id number] documented as of this encounter Visit Diagnoses Not on filedocumented in this encounter Care Teams Field Artillery Crewmember Relationship Specialty Start Date End Date Evans Casas MD [address] [place] [address] PCP - General Family Medicine 11/07/23 documented as of this encounter
--- OUTSIDE RECORDS SUMMARY | 2024-12-11 10:34 | XMS_ITS | Encounter Summary ---
Author Organization [facility] Address [address] [place] [address] Care Team Providers Care Sales Training Representative Name Role Phone Evans Casas MD Primary Care Provider Encounter Details Date Type Department Care Team (Late Contact Info) Description 04/15/2024 Abstract NOMJaylan COLVIN [address] [facility] [place] [phone] Wilton Herrmann DO [address] [place] [address] Dr June Pickett, [facility]11 Social History Tobacco Use Types Packs/Day [...] 2:40 PM EDT Routine SHILOH COLVIN [address] [facility] [place] [address] Wilton Herrmann DO [address] [facility] [address] June [place] [phone] documented as of this encounter Visit Diagnoses Not on filedocumented in this encounter Care Teams Sales Training Representative Relationship Specialty Start Date End Date Evans Casas MD [address] [place] [address] PCP - General Family Medicine 11/07/23 documented as of this encounter
--- OUTSIDE RECORDS SUMMARY | 2024-12-11 10:34 | XMS_ITS | Encounter Summary ---
Author Organization [facility] Address [address] [place] [address] Care Team Providers Care Diver'S Tender Name Role Phone Evans Casas MD Primary Care Provider [phone] Encounter Details Date Type Department Care Team (Late Contact Info) Description 02/26/2024 Abstract NOMJaylan COLVIN [address] [facility] [place] [phone] Wilton Herrmann DO [address] [place] [address] Dr June Pickett, [facility]11 Social [...] 2:40 PM EDT Routine SHILOH COLVIN [address] [facility] [place] [address] Wilton Herrmann DO [address] [facility] [address] June [place] [id number] documented as of this encounter Visit Diagnoses Not on filedocumented in this encounter Care Teams Diver'S Tender Relationship Specialty Start Date End Date Evans Casas MD [address] [place] [address] PCP - General Family Medicine 11/07/23 documented as of this encounter
--- OUTSIDE RECORDS SUMMARY | 2024-12-11 10:34 | XMS_ITS | Encounter Summary ---
Author Organization [facility] Address [address] [facility] [place] [address] Care Team Providers Care Blind Installer Name Role Phone Evans Casas MD Primary Care Provider [phone] Encounter Details Date Type Department Care Team (Late Contact Info) Description 01/10/2024 Abstract NOMS Piyush COLVIN [address] [facility] [place] [address] Ariane Joseph LPN [address] [employer] [place] [id number] Social History Tobacco Use Types Packs/Day Years [...] Info) Description 01/05/2025 2:40 PM EDT Routine NOMJaylan COLVIN [address] [facility] [place] [place] [address] Wilton Herrmann DO [address] [place] [address] documented as of this encounter Visit Diagnoses Not on filedocumented in this encounter Care Teams Blind Installer Relationship Specialty Start Date End Date Evans Casas MD [address] [place] [address] PCP - General Family Medicine 11/07/23 documented as of this encounter
--- OUTSIDE RECORDS SUMMARY | 2024-12-11 10:34 | XMS_ITS | Encounter Summary ---
Author Organization [facility] Address [address] [place] [address] Care Team Providers Care Nuclear Plant Equipment Operator Name Role Phone Evans Casas MD Primary Care Provider [phone] Encounter Details Date Type Department Care Team (Late Contact Info) Description 02/25/2024 Abstract NOMJaylan COLVIN [address] [facility] [address] Wilton Herrmann DO [address] [place] [address] Dr June Pickett, [facility]11 Social History Tobacco Use Types Packs/Day Years [...] 2:40 PM EDT Routine SHILOH COLVIN [address] [facility] [place] [address] Wilton Herrmann DO [address] [facility] [address] [place], [place] [phone] documented as of this encounter Visit Diagnoses Not on filedocumented in this encounter Care Teams Nuclear Plant Equipment Operator Relationship Specialty Start Date End Date Evans Casas MD [address] [place] [address] PCP - General Family Medicine 11/07/23 documented as of this encounter
--- OUTSIDE RECORDS SUMMARY | 2024-12-11 10:34 | XMS_ITS | Encounter Summary ---
Author Organization [facility] Address [address] [place] [address] Care Team Providers Care Data Analysis Assistant Name Role Phone Evans Casas MD Primary Care Provider [phone] Encounter Details Date Type Department Care Team (Late Contact Info) Description 03/04/2024 Abstract NOMJaylan COLVIN [address] [place] [address] Wilton Herrmann DO [address] [place] [address] Dr June Pickett, [facility]11 Social History Tobacco Use Types Packs/Day [...] SHILOH COLVIN [address] [facility] [place] [address] Wilton Herrmann DO [address] [facility] [address] June [place] [phone] documented as of this encounter Visit Diagnoses Not on filedocumented in this encounter Care Teams Data Analysis Assistant Relationship Specialty Start Date End Date Evans Casas MD [address] [place] [address] PCP - General Family Medicine 11/07/23 documented as of this encounter
--- OUTSIDE RECORDS SUMMARY | 2024-12-11 10:34 | XMS_ITS | Encounter Summary ---
Author Organization [facility] Address [address] [facility] [place] [address] Care Team Providers Care Psychology Tech Name Role Phone Evans Casas MD Primary Care Provider [phone] Encounter Details Date Type Department Care Team (Late Contact Info) Description 12/11/2024 Bamboo flowsheet NOMS Piyush COLVIN [address] [place] [address] Wilton Herrmann DO [facility] Inga Pickett, [place] [address] Social History Tobacco Use Types Packs/Day Years [...] 01/05/2025 2:40 PM EDT Routine NOMS Piyush COLVIN [address] [place] [address] Wilton Herrmann DO [facility] [place] [address] documented as of this encounter Visit Diagnoses Not on filedocumented in this encounter Care Teams Psychology Tech Relationship Specialty Start Date End Date Evans Casas MD [address] [place] [address] PCP - General Family Medicine 11/07/23 documented as of this encounter
--- OUTSIDE RECORDS SUMMARY | 2024-12-11 10:34 | XMS_ITS | Encounter Summary ---
Author Organization [facility] Address [address] [facility] [place] [address] Care Team Providers Care Car Usher Name Role Phone Evans Casas MD Primary Care Provider [phone] Encounter Details Date Type Department Care Team (Late Contact Info) Description 11/03/2024 Abstract NOMS Piyush COLVIN [address] [facility] [place] [address] Susie Ojeda MA Social History Tobacco [...] 2:40 PM EDT Routine NOMJaylan COLVIN [address] [facility] [place] [address] Wilton Herrmann DO [address] [place], [place] [phone] documented as of this encounter Visit Diagnoses Not on filedocumented in this encounter Care Teams Car Usher Relationship Specialty Start Date End Date Evans Casas MD [address] [place] [address] PCP - General Family Medicine 11/07/23 documented as of this encounter
--- OUTSIDE RECORDS SUMMARY | 2024-12-11 10:34 | XMS_ITS | Encounter Summary ---
Author Organization [facility] Address [address] [facility] [place] [address] Care Team Providers Care Milieu Therapist Name Role Phone Evans Casas MD Primary Care Provider [phone] Encounter Details Date Type Department Care Team (Late Contact Info) Description 11/05/2024 Abstract NOMS Piyush COLVIN [address] [facility] [place] [address] Susie Ojeda MA Social History Tobacco [...] 2:40 PM EDT Routine NOMJaylan COLVIN [address] [facility] [place] [address] Wilton Herrmann DO [address] [place], [place] [phone] documented as of this encounter Visit Diagnoses Not on filedocumented in this encounter Care Teams Milieu Therapist Relationship Specialty Start Date End Date Evans Casas MD [address] [place] [address] PCP - General Family Medicine 11/07/23 documented as of this encounter
--- OUTSIDE RECORDS SUMMARY | 2024-12-11 10:34 | XMS_ITS | Encounter Summary ---
Author Organization [facility] Address [address] [facility] [facility] [place] [address] Care Team Providers Care Sports Athletic Trainer Name Role Phone Evans Casas MD Primary Care Provider [phone] Encounter Details Date Type Department Care Team (Late Contact Info) Description 04/17/2024 Abstract NOMJaylan COLVIN [address] [facility] [place] [address] Wilton Herrmann DO [address] [place] [address] Dr June Pickett, [facility]11 Social History Tobacco Use Types Packs/Day [...] 2:40 PM EDT Routine SHILOH COLVIN [address] [facility] [place] [address] Wilton Herrmann DO [address] [facility] [address] [place] [phone] documented as of this encounter Visit Diagnoses Not on filedocumented in this encounter Care Teams Sports Athletic Trainer Relationship Specialty Start Date End Date Evans Casas MD [address] [place] [address] PCP - General Family Medicine 11/07/23 documented as of this encounter
--- OUTSIDE RECORDS SUMMARY | 2024-12-11 10:34 | XMS_ITS | Encounter Summary ---
Author Organization [facility] Address [address] [facility] [place] [place] [address] Care Team Providers Care Cementing Machine Operator Name Role Phone Penelpoe Casas MD Primary Care Provider [phone] Encounter Details Date Type Department Care Team (Late st Contact Info) Description 04/05/2024 Clinisync Result Encounter NOMS External Department Unsolicited Mya Herrmann DO [address] [place] [address] Social History Tobacco Use Types Packs/Day Years [...] Routine NOMS Piyush OBGYN [address] [place] [phone] Mya Herrmann DO [address] [place] [address] documented as of this encounter Procedures Procedure Name Priority Date/Time Associated Diagnosis Comments US OB TRANSVAGINAL 04/05/2024 4: 39 AM EST documented in this encounter Results * US OB TRANSVAGINAL (04/05/2024 4:39 AM EST) Anatomical Region Laterality Modality Other 04/05/2024 4:39 AM EST Narrative 04/05/2024 4:42 [place] [address] Ultrasound Report Signed Patient: Sanna Rendon MR#: [id number] : 1985 Acct:[id number] Age/Sex: 38 / F ADM Date: 04/04/24 Loc: [facility] Attending Dr: Mya Herrmann D.O. Ordering Physician: Mya Herrmann D.O. Date of Service: 04/04/24 Procedure(s): US OB transvaginal Accession Number(s): [id number] cc: Mya Herrmann D.O.; [place]EL[place] [address] Patient Name: SANNA RENDON MRN: [id number] date: 1985 Sex: F Assigned Patient Location: [facility] Current Patient Location: Accession/Order Number: [id number] Exam Date: 04/04/2024 09:43 Report Date: 04/05/2024 [...] Dictated By: Pascual Riley M.D. Signed By: 04/05/24 0442 DD/ 0439 TD/TT: Glass Curvature Gauger: Procedure Note Radiology, Radiologist, - 04/05/2024 [place] [address] Ultrasound Report Signed Patient: Sanna Rendon SMR#: [id number] : 1985Acct:[id number] Age/Sex: 38 / FADM Date: 04/04/24 Loc: [facility] Attending Dr: Mya Herrmann D.O. Ordering Physician: Mya Herrmann D.O. Date of Service: 04/04/24 Procedure(s): US OB transvaginal Accession Number(s): [id number] cc: Mya Herrmann D.O.; PENELOPE CASAS [place] [address] Patient Name: SANNA RENDON MRN: [id number] date: 1985 Sex: F Assigned Patient Location: [facility] Current Patient Location: Accession/Order Number: [id number] Exam Date: 04/04/2024 09:43 Report Date: 04/05/2024 [...] 04:39 Dictated By: Pascual Riley M.D. Signed By:04/05/242 DD/ TD/TT: Glass Curvature Gauger: us Mya Montez DO [facility] Final Result documented in this encounter Visit Diagnoses Not on filedocumented in this encounter Care Teams Cementing Machine Operator Relationship Specialty Start Date End Date Penelope Casas MD [address] [place] [address] PCP - General Family Medicine 11/07/23 documented as of this encounter
--- OUTSIDE RECORDS SUMMARY | 2024-12-11 10:34 | XMS_ITS | Encounter Summary ---
Author Organization [facility] Address [address] [place] [address] Care Team Providers Care Content Curator Name Role Phone Evans Casas MD Primary Care Provider Encounter Details Date Type Department Care Team (Late Contact Info) Description 04/15/2024 Abstract NOMJaylan COLVIN [address] [facility] [place] [address] Wilton Herrmann DO [address] [place] [address] Dr June Pickett, [facility]11 Social History Tobacco Use Types Packs/Day [...] 2:40 PM EDT Routine SHILOH COLVIN [address] [facility] [place] [address] Wilton Herrmann DO [address] [facility] [address] June [place] [phone] documented as of this encounter Visit Diagnoses Not on filedocumented in this encounter Care Teams Content Curator Relationship Specialty Start Date End Date Evans Casas MD [address] [place] [address] PCP - General Family Medicine 11/07/23 documented as of this encounter
--- OUTSIDE RECORDS SUMMARY | 2024-12-11 10:34 | XMS_ITS | Encounter Summary ---
Author Organization [facility] Address [address] [place] [address] Care Team Providers Care Workforce Manager Name Role Phone Evans Casas MD Primary Care Provider [phone] Encounter Details Date Type Department Care Team (Late Contact Info) Description 02/28/2024 Abstract NOMJaylan COLVIN [address] [facility] [place] [address] Wilton Herrmann DO [address] [place] [address] Dr June Pickett, [facility]11 Social History Tobacco Use Types Packs/Day Years [...] 2:40 PM EDT Routine SHILOH COLVIN [address] [facility] [place] [address] Wilton Herrmann DO [address] [facility] [address] [place] [id number] documented as of this encounter Visit Diagnoses Not on filedocumented in this encounter Care Teams Workforce Manager Relationship Specialty Start Date End Date Evans Casas MD [address] [place] [address] PCP - General Family Medicine 11/07/23 documented as of this encounter
--- OUTSIDE RECORDS SUMMARY | 2024-12-11 10:38 | XMS_ITS | CCD ---
Author Organization [facility] Care Team Providers Care Rn Geriatric Name Role Phone PENG MONGE R Unavailable Unavailable BIBI CHRISTY Unavailable Unavailable ERIKA LONDON Attending Unavailab ERIKA Haddad Referring Unavailab Haseeb Chavez Attending Unavailable Peng Monge Referring Unavailable Humaira Gaviria MD Primary Care Provider Jonny Wilcox MD Unavailable Evans CASAS Primary Care Physician Cheri Norwood Unavailable Unavailable Cosmo Elliott MD Unavailable Lauro LARSON, Davida Unavailable [phone] Evans Casas Primary Care Provider EVANS CASAS Primary Care Unavailable TOD LOPEZ Referring Unavailable Humaira Gaviria MD Primary Care Provider [phone] Jonny Wilcox MD P Unavailable Cosmo Elliott MD R Unavailable [phone] Lauro RN, Davida Unavailable Evans Casas DO Primary Care Provider Jonny Wilcox MD P Unavailable [phone] Cosmo Elliott MD R Unavailable Lauro LARSON, Davida Unavailable Evans Casas [...] Unavailable MONTEZ, DR ROQUE Primary Care Unavailable [place], DR ANGIE Luna Consulting Unavailable MONTEZ, DR [...] Unavailable Evans Casas DO Primary Care Provider [phone] Evans CASAS Admitting Unavailable KAPANNA, Evans Tony Attending Unavailable KAPANNA, Evans Tony Admitting Unavailable KAPANNA, Evans Tony Attending Unavailable Benny Uribe Attending Unavailable NELI DUNHAM Attending Unavailabl e Hal, Taylor Varela Attending Unavailable HalTaylor Attending Unavailable KAPANNA, Evans Tony Attending Unavailable KAPANNA, Evans Tony Attending Unavailable KAPANNA, Evans Tony Attending Unavailable KAPANNA, Evans Tony Attending Unavailable KAPANNA, Evans Tony Attending Unavailable KAPANNA, Evans Tony Attending Unavailable Lourdes Garber Attending Unavailab le Evans CASAS Attending Unavailable Monica Saba Admitting Unavailable Monica Saba Attending Unavailable Monica Saba Referring Unavailable PENG MONGE Consulting Unavailable MD PENG MONGE Consulting Unavailable Lourdes Garber Attending Unavailab Monica Escobar Admitting Unavailable Monica Saba Attending Unavailable Monica Saba Referring Unavailable Benny Uribe Attending Unavailable Evans CASAS Attending Unavailable Monica Saba Attending Unavailable KAPEvans CONTRERAS Admitting Unavailable KAPEvans CONTRERAS Attending Unavailable MONTEZ, Wilton R Attending Unavailable MONTEZ, Wilton R Admitting Unavailable MONTEZ, Wilton R Attending Unavailable MONTEZ, Wilton R Admitting Unavailable MONTEZ, Wilton R Attending Unavailable MONTEZ, Wilton R Attending Unavailable MONTEZ, Wilton R Admitting Unavailable MONTEZ, Wilton R Attending Unavailable MONTEZ, Wilton R Admitting Unavailable MONTEZ, Wilton R Attending Unavailable MONTEZ, Wilton R Admitting Unavailable Evans Casas MD Primary Care Provider Montez DO, Wilton Attending Provider Montez, Wilton Attending Unavailable Montez, Wilton Admitting Unavailable Gudimella, Anni Attending Unavailable Gudimella, Anni Attending Unavailable KAPLE, Evans A Attending Unavailable KAPLE, Evans A Attending Unavailable MONTEZ, Wilton R Admitting Unavailable MONTEZ, Wilton R Attending Unavailable KAPLE, Evans A Admitting Unavailable KAPLE, Evans A Attending Unavailable KAPLE, Evans A Attending Unavailable KAPLE, Evans A Attending Unavailable MONTEZ, Wilton R Admitting Unavailable MONTEZ, Wilton R Attending Unavailable BLAKE, ABI A Attending Unavailable MONTEZ, Wilton R Attending Unavailable MONTEZ, Wilton R Admitting Unavailable MONTEZ, Wilton R Admitting Unavailable MONTEZ, Wilton R Attending Unavailable Ashu, Inez Guzman Attending Unavailable Inez Wakefield Admitting Unavailable Visci, Farhat Tony Attending Unavailable Visci, Farhat Cecily Admitting Unavailable Inez Wakefield Attending Unavailable Inez Wakefield Admitting Unavailable MONTEZ, Wilton R Attending Unavailable MONTEZ, Wilton R Admitting Unavailable Romulo Chiu Attending Unavailable KAPLE, Evans A Attending Unavailable MONTEZ, Wilton R Attending Unavailable MONTEZ, Wilton R Admitting Unavailable JESSICA BACA Attending Unavailabl e Inez Wakefield Attending Unavailable KAPEvans CONTRERAS Attending Unavailable Kapanna RESENDEZ Evans A Primary Care Provider [phone] ABHYANKAR, SALVADOR Referring Unavailable ABHYANKAR, SALVADOR Attending Unavailable KAPLE, EVANS A Primary Care Unavailable KAPLE, EVANS A Primary Care Unavailable ABHYANKAR, SALVADOR Referring Unavailable GRANT NEGRETE Attending Unavailable KAPLE, EVANS A Primary Care Unavailable ABHYANKAR, SALVADOR Referring Unavailable KAPLE, EVANS A Primary Care Unavailable ABHYANKAR, SALVADOR Referring Unavailable KAPLE, EVANS A Primary Care Unavailable ABHYANKAR, SALVADOR Referring Unavailable KAPLE, EVANS A Primary Care Unavailable KAPLE, EVANS A Primary Care Unavailable ABHYANKAR, SALVADOR Attending Unavailable KAPLE, EVANS A Primary Care Unavailable ABHYANKAR, SALVADOR Referring Unavailable KAPLE, EVANS A Primary Care Unavailable MONTEZ, WILTON Attending Unavailable MONTEZ, WILTON Attending Unavailable MONTEZ, WILTON Attending Unavailable MONTEZ, WILTON Attending Unavailable MONTEZ, WILTON Attending Unavailable MONTEZ, WILTON Attending Unavailable CINDY MILLER Attending Unavailable MONTEZ, WILTON R Referring Unavailable EVANS CASAS Primary Care Unavailable JASON SABA Attending Unavailable EVANS CASAS Referring Unavailable EVANS CASAS Primary Care Unavailable MONTEZ, Wilton R Attending Unavailable MONTEZ, Wilton R Admitting Unavailable MONTEZ, Wilton R Attending Unavailable Allergies Allergy Classification Reported Allergen(s) Allergy Type Date of Onset Reaction(s) Facility (20 sources) Ciprofloxacin; Translations: [ciprofloxacin] Drug Allergy 05-19-19 20 Other: See Comments, Unknown, Numbness and tingling sensation of skin (finding), Nausea (finding), Other (See Comments), GI intolerance, Dizziness [facility] Work Phone: (20 sources) Ciprofloxacin / fluocinolone; Translations: [CIPROFLOXACIN-FL UOCINOLONE] Drug Allergy 05-19-19 20 Other: See Comments [facility] (20 sources) cow milk allergenic extract; Translations: [MILK] Drug Allergy 05-25-19 18 Other: See Comments [facility] Work Phone: (20 sources) Lactalbumin; Translations: [LACTALBUMIN] Drug Allergy 05-25-19 18 Unknown, GI Upset, Other (See Comments) [facility] (20 sources) Lactose; Translations: [LACTOSE] Drug Allergy 09-11-19 18 GI Upset, GI Disturbance [facility] (20 sources) Milk Drug Allergy 05-25-19 18 Other: See Comments, Other (See Comments) [facility] (6 sources) Penicillins Drug Allergy 02-01-20 19 Unknown [facility] (20 sources) Seasonal allergy; Translations: [SEASONAL ALLERGIES] Allergy to substance 05-05-19 21 GI Upset, Other: See Comments [facility] Work Phone: (20 sources) Milk Products; Translations: [Milk Products] Drug allergy Illness (finding) [facility] (20 sources) Ciprofloxacin / fluocinolone Drug Allergy 05-19-19 20 Other (See Comments) [facility] Work Phone: (1 source) Seasonal allergy Propensity to adverse reactions to substance 05-05-19 21 Other (See Comments) [employer] Phone: (1 source) Milk-Related Compounds Propensity to adverse reactions to drug 05-25-19 18 Other (See Comments) [employer] Phone: (2 sources) Penicillins Drug Allergy 02-01-20 19 Unknown [facility] (1 source) Ciprofloxacin Drug Allergy 03-30-20 22 [facility] Rep[facility] (20 sources) Lactose (non-medical use) Propensity to adverse reactions 09-11-19 18 [facility] (20 sources) Lactose (non-medical use) Drug Allergy 11-15-19 24 [facility] (20 sources) Octacosanol Drug Intolerance 05-05-19 21 [facility] (20 sources) Other Allergy to substance 05-25-19 18 Other [facility] Work Phone: (2 sources) MILK CONTAINING PRODUCTS (DAIRY); Translations: [MILK CONTAINING PRODUCTS (DAIRY)] Propensity to adverse reactions to drug (disorder) 05-25-19 18 [facility] Repository Medications Current Medications Medication Drug Class(es) Dates [...] puff(s), Inhalation, q6hr, 1 EA, Refill(s) 5, [facility], 168, cm, 02/02/24 14:43:00 EDT, Height/Length Dosing, 101.1, kg, 02/02/24 14:43:00 EDT, Weight Dosing Start Date: 02/02/24 Status: Ordered azithromycin 250 mg oral tablet (15 sources) Macrolide Antimicrobial Start: 09-08-2024 End: 10-30-2024 azithromycin (Zithromax Z-Jonny) 250 MG tablet Indications: 5 weeks gestation of ([facility]) As directed 6 tablet 09/08/2024 10/30/2024 Discontinued (Therapy completed) Start: 06-19-2024 End: 06-29-2024 Zithromax 250 mg Tab = 1 pac ket(s), Oral, As Directed, as directed on package labeling, X 5 day(s), # 6 tab(s), Refills(s) 1, Pharmacy: [facility], 168, cm, 06/09/24 14:03:00 EST, Height/Length Dosing, 98.4, kg, 06/19/24 16:19:00 EST, Weight Dosing Start Date: 06/19/24 Stop Date: 06/29/24 Status: Ordered Start: 04-21-2024 End: 05-06-2024 azithromycin (Zithromax Z-Pa k) 250 MG tablet Indications: Upper respiratory tract infection, unspecified type As directed 6 tablet 04/21/2024 05/06/2024 Discontinued azithromycin 250 mg Tab 5-day Dose Pack (Z-Jonny) (2 sources) Start: 02-02-2024 End: 02-07-2024 azithromycin 250 mg Tab 5-day Dose Pack (Z-Jonny) = 1 packet(s), Oral, As Directed, as directed on package labeling, X 5 day(s), # 6 tab(s), Refills(s) 0, Pharmacy: [facility], 168, cm, 02/02/24 14:43:00 EDT, Height/Length Dosing, 101.1, kg, 02/02/24 14:43:00 EDT, Weight Dosing Start Date: 02/02/24 Stop Date: 02/07/24 Status: Ordered Blood Glucose Monitoring Suppl (D-Care Glucometer) w/Device kit (8 sources) Start: 10-30-2024 End: 10-30-2025 Blood Glucose Monitoring Suppl (D-Care Glucometer) w/Device kit Indications: Second trimester ([facility]) , 13 weeks gestation of ([facility]) , Multigravida of advanced maternal age in second trimester ([facility]) , Gestational diabetes mellitus (GDM), antepartum, gestational diabetes method of control unspecified ([facility]) , Elevated glucose tolerance test 1 kit Daily Use four times daily to check FSBS. In the morning prior to breakfast & 1 hour after each meal for a total of 4times daily. 1 kit 10/30/2024 10/30/2025 Active blood-glucose meter (BLOOD GLUCOSE MONITORING) kit (5 sources) blood-glucose me ter (BLOOD GLUCOSE MONITORING) kit 1 each by other route in the morning. Use to check blood sugar 4 times daily . Active cephalexin 500 mg oral tablet (8 sources) Cephalosporin Antibacterial Start: 08-19-2021 End: 08-29-2021 take 1 tablet by mouth twice daily cephalexin 500 mg oral tablet 500 mg = 1 tab(s), Oral, BID, X 10 day(s), # 20 tab(s), Refills(s) 0, Pharmacy: [facility], 168, cm, 08/19/21 10:50:00 EDT, Height/Length Dosing, 103.6, kg, 08/19/21 10:50:00 EDT, Weight Dosing Start Date: 08/19/21 Stop Date: 08/29/21 Status: Ordered CEPHalexin (KEFL EX) 500 mg capsule Take 1 capsule (500 mg total) by mouth in the morning and 1 capsule (500 mg total) at noon and 1 capsule (500 mg total) in the evening and 1 capsule (500 mg total) before bedtime. Active ciprofloxacin 3 mg/ml / dexamethasone 1 mg/ml otic suspension (2 sources) Corticosteroid, Quinolone Antimicrobial Start: 10-23-2023 End: 10-30-2023 Ciprodex 0.3%-0.1% Susp-Otic 4 drop(s), Otic, BID for 7 day(s), 7.5 mL, Refill(s) 0, [facility]/pharmacy #[id number], 168, cm, 10/23/23 16:55:00 EDT, Height/Length Dosing, 106.2, kg, 10/23/23 16:55:00 EDT, Weight Dosing Start Date: 10/23/23 Stop Date: 10/30/23 Status: Ordered Start: 02-15-2023 End: 02-22-2023 Ciprodex 0.3%-0.1% Susp-Otic 4 drop(s), Otic, BID for 7 day(s), 7.5 mL, Refill(s) 0, Only use if drainage or pain of ear shake well before using, [facility], 168, cm, 02/15/23 9:49:00 EDT, Height/Length Dosing, 108, kg, 02/15/23 9:49:00 EDT, Weight Dosing Start Date: 02/15/23 Stop Date: 02/22/23 Status: Ordered docusate sodium 50 mg oral capsule (19 sources) take 2 capsules by m outh in the morning docusate sodium (Colace) 50 MG capsule Take 100 mg by mouth in the morning and 100 mg before bedtime. Active take 1 capsule by mouth once demetrio ly docusate sodium (COLACE) 100 mg capsule Take 100 mg by mouth daily. Active docusate sodium (COLACE PO) Take by mouth. Active enoxaparin (LOVENOX) 40 MG/0.4ML injection (1 source) Start: 02-20-2020 enoxaparin (LOVENOX) 40 MG/0.4ML injection Inject 0.4 mLs into the skin daily 16 mL 1 02/20/2020 Active enoxaparin (Lovenox) 40 MG/0.4ML injection (11 sources) enoxaparin (Lovenox) 40 MG/0.4ML injection 1 (one) time each day at the same time Active famotidine 40 mg oral tablet (20 sources) Histamine-2 Receptor Antagonist Start: 06-30-2024 take 1 tablet by mouth once daily at bedtime Pepcid 40 mg Tab 40 mg = 1 tab(s), Oral, Once a day (at bedtime), # 90 tab(s), Refills(s) 4, Pharmacy: [facility], 168, cm, 06/30/24 8:36:00 EST, Height/Length Dosing, 97.2, kg, 06/30/24 8:36:00 EST, Weight Dosing Start Date: 06/30/24 Status: Ordered Quantity: 90.0 Unit: tab(s) Repeat number: 5 Start: 11-29-2023 End: 10-28-2024 take 1 tablet by mouth once daily famotidine (PEPCID) 20 mg tablet Take 1 tablet by mouth once daily. To take prior to infusion 1 tablet 11/29/2023 10/28/2024 Discontinued (Discontinued by Patient) Start: 11-29-2023 End: 11-29-2023 famotidine 20 mg injection ( PEPCID) fluconazole 150 mg oral tablet (6 sources) Azole Antifungal Start: 06-19-2024 Diflucan 150 mg Tab 150 mg = 1 tab(s), Oral, q7day, # 4 tab(s), Refills(s) 1, Pharmacy: [facility], 168, cm, 06/09/24 14:03:00 EST, Height/Length Dosing, 98.4, kg, 06/19/24 16:19:00 EST, Weight Dosing Start Date: 06/19/24 Status: Ordered Quantity: 4.0 Unit: tab(s) Repeat number: 2 Indication: Candidiasis, unspecified fluticasone propionate 0.05 mg/actuat metered dose nasal spray (18 sources) Corticosteroid Start: 11-20-2024 End: 11-20-2025 take 1 spray(s) nasal route once daily fluticasone (Flonase) 50 MCG/ACT nasal spray Indications: Sinus headache Administer 1 spray into each nostril Daily Shake gently. Before first use, prime pump. After use, clean tip and replace cap. 16 g 3 11/20/2024 11/20/2025 Active Start: 06-09-2024 Flonase 0.05 m g/inh [place] 2 spray(s), Nasal, Daily, 16 gram, Refill(s) 11, each nostril, [facility]/pharmacy #[id number], 168, cm, 06/09/24 14:03:00 EST, Height/Length Dosing, 99.1, kg, 06/09/24 14:03:00 EST, Weight Dosing Start Date: 06/09/24 Status: Ordered Quantity: 16.0 Unit: g Repeat number: 12 Start: 06-09-2024 Flonase 0.05 m g/inh [place] 2 spray(s), Nasal, Daily, 16 gram, Refill(s) 11, each nostril, [facility]/pharmacy #[id number], 168, cm, 06/09/24 14:03:00 EST, Height/Length Dosing, 99.1, kg, 06/09/24 14:03:00 EST, Weight Dosing Start Date: 06/09/24 Status: Ordered Start: 08-03-2023 Flonase 0.05 m g/inh [place] 2 spray(s), Nasal, Daily, 16 gram, Refill(s) 0, each nostril Start Date: 08/03/23 Status: Ordered 3 ml insulin glargine 100 unt/ml pen injector (2 sources) Insulin Analog Start: 12-03-2024 insulin glargi ne (LANTUS SOLOSTAR U-100 INSULIN) 100 unit/mL (3 mL) insulin pen Prime with 2 units then inject 4 units SQ into abd 15 mL 3 12/03/2024 Active isopropyl alcohol 0.7 ml/ml medicated pad (13 sources) Start: 10-30-2024 Alcohol Swabs (Alcohol Prep Pad) 70 % pads Indications: Second trimester ([facility]) , 13 weeks gestation of ([facility]) , Multigravida of advanced maternal age in second trimester ([facility]) , Gestational diabetes mellitus (GDM), antepartum, gestational diabetes method of control unspecified ([facility]) , Elevated glucose tolerance test Apply 1 Pad topically Daily Use four times daily to check FSBS. 150 each 3 10/30/2024 Active levothyroxine sodium 0.025 mg oral tablet (20 sources) l-Thyroxine Start: 06-09-2024 levothyroxine 25 mcg (0.025 mg) Tab 25 mcg = 1 tab(s), Oral, Daily, Dr. Celaya, # 30 tab(s), Refills(s) 0 Start Date: 06/09/24 Status: Ordered Quantity: 30.0 Unit: tab(s) Repeat number: 1 Start: 06-02-2024 End: 06-02-2025 take 1 tablet by mouth before mealtime levothyroxine (Synthroid) 50 MCG tablet Indications: History of thyroid disease Take 1 tablet (50 mcg) by mouth in the morning. Take before meals. 30 tablet 11 06/02/2024 06/23/2024 Discontinued Start: 02-25-2024 End: 06-23-2025 take 1 tablet by mouth before mealtime levothyroxine (Synthroid) 25 MCG tablet Indications: Abnormal TSH Take 1 tablet (25 mcg) by mouth in the morning. Take before meals. 30 tablet 06/23/2024 06/23/2025 Active Start: 08-24-2021 End: 09-26-2023 levothyroxine (SYNTHROID) [...] 40 mg/0.4 mL Injection (20 sources) Start: 04-07-2020 inject 40 mg by subcutaneous injection every twenty-four hours Lovenox 40 mg/0.4 mL Injection 40 mg, SubCutaneous, q24hr, # 7 EA, Refills(s) 0, Blood Thinner Start Date: 04/07/20 Status: Ordered Quantity: 7.0 Unit: EA Repeat number: 1 Start: 04-07-2020 inject 40 mg by subc utaneous injection every twenty-four hours Lovenox 40 mg/0.4 mL Injection 40 mg, SubCutaneous, q24hr, # 7 EA, Refills(s) 0, Blood Thinner Start Date: 04/07/20 Status: Ordered 24 hr metFORMIN hydrochloride 500 mg extended release oral tablet (20 sources) Biguanide Start: 05-13-2024 End: 06-12-2024 take 2 tablets by mouth every twenty-four hours at mealtime metFORMIN XR (Glucophage-XR) 500 MG 24 hr tablet Indications: Insulin resistance Take 2 tablets (1,000 mg) by mouth in the evening. Take with meals Do not crush, chew, or split. 60 tablet 11 05/13/2024 06/02/2024 Discontinued Start: 11-27-2023 End: 09-18-2025 take 1 tablet by mouth once daily metFORMIN XR (Glucophage-XR) 500 MG 24 hr tablet Indications: Insulin resistance Take 1 tablet (500 mg) by mouth 1 (one) time each day at the same time 30 tablet 11 09/18/2024 09/18/2025 Active Start: 10-20-2022 MetFORMIN (Eqv -Glucophage XR) 500 mg oral tablet, extended release 1,000 mg = 2 tab(s), Oral, Daily, Refills(s) 0 Start Date: 10/20/22 Status: Ordered Repeat number: 1 Start: 03-26-2022 metFORMIN ER ( GLUCOPHAGE XR) 500 mg 24 hr tablet 03/26/2022 Active Multiple Vitamin (Multi-Vitamin) tablet (20 sources) take 1 tablet by [...] 1 tablet by luna th once daily. polyethylene glycol 3350 96886 mg powder for oral solution (15 sources) Osmotic Laxative polyethylene gl ycol, PEG, 3350 (Glycolax) 17 GM/SCOOP powder Take 17 g by mouth Daily Active Polyethylene Glycols (3 sources) polyethylene gly col 3350 (MIRALAX PO) Take by mouth. Active 19 29 mg iron- 1 mg tablet,chewable (7 sources) Start: 11-01-19 19 19 29 mg iron- 1 mg tablet,chewable Chew 1 tablet and swallow daily. 6 10/31/2018 Active Vit-Fe Fumarate-FA ( PO) (1 source) Start: 11-01-19 19 Vit-Fe Fumarate-FA ( PO) Take 1 tablet by mouth 0 10/31/2018 Active progesterone 200 mg oral capsule (5 sources) Progesterone take 1 capsule by mouth in the morning progesterone (PROMETRIUM) 200 mg capsule Take 1 capsule (200 mg total) by mouth in the morning. Active Progesterone 200 MG suppository (6 sources) Start: 09-19-19 End: 10-31-19 25 Progesterone 200 MG suppository Indications: History of miscarriage Insert 200 mg into the vagina at bedtime Insert suppository vaginally every night at bedtime until 12 weeks gestation 30 suppository 3 09/18/2024 10/30/2024 Discontinued (Therapy completed) Start: 09-18-2024 End: 12-17-2024 Progesterone 200 MG supposit ory Indications: History of miscarriage Insert 200 mg into the vagina at bedtime Insert suppository vaginally every night at bedtime until 12 weeks gestation 30 suppository 3 09/18/2024 12/17/2024 Active Start: 09-01-2024 End: 11-30-2024 Progesterone 200 MG supposit ory Indications: History of miscarriage Insert 200 mg into the vagina at bedtime Insert suppository vaginally every night at bedtime until 12 weeks gestation 30 suppository 2 09/01/2024 11/30/2024 Active progesterone vaginal suppository 200 mg (CPD) (3 sources) progesterone vag inal suppository 200 mg (CPD) Use 200 mg vaginally. Unwrap and insert as directed. Active terconazole 4 mg/ml vaginal cream (3 sources) Azole Antifungal Start: End: terconazole (Terazol 7) 0.4 % vaginal cream Indications: Vaginal discharge Insert 1 applicator into the vagina at bedtime for 7 days 45 g 06/23/2024 06/30/2024 Active Ventolin HFA 90 mcg/inh Aerosol-Adpt (1 source) Start: End: take 2 puff(s) by inhalation every six hours for wheezing Ventolin HFA 90 mcg/inh Aerosol-Adpt 2 puff(s), Inhalation, q6hr for wheezing for 7 day(s), 8 gm, Refill(s) 0, [facility], 167, cm, 09/07/24 10:01:00 EDT, Height/Length Dosing, 96.4, kg, 09/07/24 10:01:00 EDT, Weight Dosing Start Date: 09/07/24 Stop Date: 09/14/24 Status: Ordered Quantity: 8.0 Unit: g Repeat number: 1 Indication: Acute upper respiratory infection, unspecified Vitamin D (20 sources) Start: Vitamin D 2,000 International_Unit, Oral, qWeek, Refills(s) 0 Start Date: 08/03/23 Status: Ordered Repeat number: 1 Start: 08-03-2023 Vitamin D 2,00 0 International_Unit, Oral, qWeek, Refills(s) 0 Start Date: 08/03/23 Status: Ordered Completed/Discontinued Medications Medication Drug Class(es) Dates Sig (Normalized) Sig (Original) aspirin 81 mg chewable tablet (5 sources) Platelet Aggregation Inhibitor, Nonsteroidal Anti-inflammatory Drug End: 05-06-2024 aspirin 81 MG chewable tablet Chew 81 mg in the morning. 05/06/2024 Discontinued 1 ml dexamethasone phosphate 4 mg/ml injection (1 source) Corticosteroid Start: 11-29-2023 End: 11-29-2023 dexAMETHasone sodium phosphate 8 mg injection (DECADRON) 0.4 ml enoxaparin sodium 100 mg/ml prefilled syringe (20 sources) Low Molecular Weight Heparin Start: 05-03-2023 End: 10-29-2024 enoxaparin (LOVENOX) 40 mg/0.4 mL Indications: Primary hypercoagulable state (HCC) , CVA, old, speech/language deficit , Cerebral hyponatremia INJECT 1 SYRINGE SUBCUTANEOUSLY EVERY 24 HOURS 90 mL 2024 10/29/2024 Discontinued Start: 04-06-2022 End: 09-28-2022 enoxaparin (LOVENOX) 40 [...] SYRINGE (0.4 ML) SUBCUTANEOUSLY EVERY 24 HOURS iron sucrose 300 mg in NaCl 0.9% [...] on above: Take 1 tablet by luna once daily. ondansetron 4 mg disintegrating oral [...] Date Documented Date Episodic/Chronic Acute cerebrovascular disease (20 sources) Cerebral infarction; Translations: [Cerebral infarction, unspecified] Onset: 0 Resolved: 0 05-16-2019 Chronic Anxiety disorders (20 sources) Anxiety; Translations: [Anxiety disorder, unspecified] Onset: 4 12-24-2020 Chronic Cardiac dysrhythmias (20 sources) Supraventricular tachycardia; Translations: [Supraventricular tachycardia] Onset: [...] Onset: 2 Chronic Deficiency and other anemia (6 sources) Anemia; Translations: [Anemia, unspecified] Onset: 5 Episodic Diabetes or abnormal glucose tolerance complicating ; childbirth; or the puerperium (20 sources) Gestational diabetes mellitus in , unspecified control; Translations: [Gestational diabetes mellitus in childbirth, unspecified control] Onset: 2 Episodic Disorders of teeth and jaw (11 sources) Temporomandibular [id number] syndrome; Translations: [Arthralgia of temporomandibular joint] Onset: 5 06-09-2024 Episodic Esophageal disorders (20 sources) Laryngopharyngeal reflux; Translations: [Gastro-esophageal reflux disease without esophagitis] Onset: 4 11-19-2023 Chronic Headache; including migraine (20 sources) Migraine without aura, not refractory ; Translations: [Migraine without aura, not intractable, without status migrainosus] Onset: 8 Resolved: 0 09-12-2017 Chronic Headache; including migraine (2 sources) Sinus headache; Translations: [Sinus headache] 11-20-2024 Episodic Late effects of cerebrovascular disease (20 sources) 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; Translations: [Other speech and language deficits following cerebral infarction] Onset: 0 Chronic Menopausal disorders (1 source) Hormone replacement therapy; Translations: [HORMONE REPLACEMENT THERAPY] Onset: 3 Episodic Menstrual disorders (20 sources) Irregular menstruation, unspecified; Translations: [Missed period] Onset: 2 Chronic Miscellaneous mental health disorders (20 sources) Psychogenic hyperventilation; Translations: [Other somatoform disorders] Onset: 4 10-12-2020 Chronic Multiple sclerosis (1 source) Multiple sclerosis; Translations: [Multiple sclerosis] Onset: 8 Chronic Nutritional deficiencies (19 sources) Vitamin D deficiency; Translations: [Vitamin D deficiency, unspecified] Onset: 5 12-22-2022 Chronic Other aftercare (1 source) Other manager long term care (current) drug therapy; Translations: [OTH BREASTFEEDING PROGRAM COORDINATOR CURRENT DRUG THERAPY] Onset: 3 Episodic Other aftercare (1 source) local 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; Translations: [ALF USE ORAL HYPOGLYCEMIC DX] Onset: 3 Episodic Other aftercare (2 sources) H/O: miscarriage; Translations: [Encounter for other specified aftercare] 06-02-2024 Episodic Other circulatory disease (4 sources) History of cerebrovascular disease; Translations: [Personal history of transient ischemic attack (TIA), and cerebral infarction without residual deficits] Onset: 0 02-08-2021 Episodic Other circulatory disease (1 source) Personal history of transient ischemic attack (TIA), and cerebral infarction without residual deficits; Translations: [PERS HX TIA AND CI NO RESID DEFICIT] Onset: 3 Episodic Other circulatory disease (1 source) History of transient ischemic attack; Translations: [Personal history of transient ischemic attack (TIA), and cerebral infarction without residual deficits] 10-29-2024 Episodic Other complications of ; puerperium affecting management of mother (20 sources) Anemia in mother complicating childbirth; Translations: [...] 3RD TRI UNS] Onset: 2 Episodic Other complications of (9 sources) Multigravida of advanced maternal age; Translations: [Supervision of elderly multigravida, second trimester] Onset: 5 10-30-2024 Episodic Other ear and sense organ disorders (20 sources) Otitis externa of right ear; Translations: [Unspecified otitis externa, right ear] Onset: 3 Chronic Other ear and sense organ disorders (7 sources) Otitis externa 02-15-2023 Chronic Other endocrine disorders (20 sources) Hypoglycemia; Translations: [Hypoglycemia, unspecified] Onset: 4 02-15-2021 Chronic Other female genital disorders (2 sources) Vaginal bleeding; Translations: [Abnormal uterine and vaginal bleeding, unspecified] 06-23-2024 Chronic Other female genital disorders (4 sources) Vaginal discharge; Translations: [Other specified noninflammatory disorders of vagina] 06-23-2024 Episodic Other hematologic conditions (1 source) H/O: blood disorder; Translations: [Personal history of diseases of the blood and blood-forming organs and certain disorders involving the immune mechanism] Onset: 4 Episodic Other lower respiratory disease (9 sources) Cough 04-19-2021 Episodic Other nervous system disorders (1 source) Idiopathic progressive neuropathy; Translations: [Idiopathic progressive neuropathy] Onset: 9 Chronic Other nervous system disorders (20 sources) Neuropathy; Translations: [Idiopathic progressive neuropathy] Onset: 7 07-11-2019 Chronic Other nervous system disorders (3 sources) Paresthesia; Translations: [Paresthesia of skin] Onset: 0 Episodic Other nervous system disorders (9 sources) Muscle twitch 08-19-2021 Episodic Other nervous system disorders (6 sources) Facial paresthesia 06-30-2024 Episodic Other nutritional; endocrine; and metabolic disorders (10 sources) Obese class II; Translations: [Body mass [...] nutritional; endocrine; and metabolic disorders (1 source) Obese class I; Translations: [Body mass index (BMI) 34.0-34.9, adult] Onset: 5 Chronic Other nutritional; endocrine; and metabolic disorders (1 source) H/O: Disorder; Translations: [Personal history of other endocrine, nutritional and metabolic disease] Onset: 4 Episodic Other nutritional; endocrine; and metabolic disorders (2 sources) H/O: thyroid disorder; Translations: [Personal history of other endocrine, nutritional and metabolic disease] 06-02-2024 Episodic Other and delivery including normal (20 sources) Normal ; Translations: [Encounter for supervision of normal , unspecified, first trimester] Onset: 0 02-12-2020 Episodic Other screening for suspected conditions (not mental disorders or infectious disease) (11 sources) Encounter for screening for malignant neoplasm of cervix; Translations: [Encounter for screening for diabetes mellitus] Onset: 2 Episodic Other skin disorders (1 source) Podopompholyx; Translations: [Dyshidrosis [pompholyx]] Onset: 4 Episodic Other upper respiratory disease (20 sources) Allergy to pollen 08-03-2023 Chronic Other upper respiratory disease (1 source) Polyp of nasal sinus; Translations: [Nasal polyp, unspecified] Onset: 4 Episodic Other upper respiratory infections (8 sources) Chronic sinusitis; Translations: [Chronic sinusitis, unspecified] Onset: 5 Chronic Residual codes; unclassified (1 source) Sleep disorder; Translations: [Other sleep disorders] Onset: 3 Chronic Residual codes; unclassified (20 sources) Obstructive sleep apnea syndrome; Translations: [Obstructive sleep apnea (adult) (pediatric)] Onset: 4 10-25-2022 Chronic Residual codes; unclassified (7 sources) Patient encounter status; Translations: [Other specified [...] ] Onset: 2 Episodic Residual codes; unclassified (20 sources) Sleep disorder 10-20-2022 Episodic Residual codes; unclassified (1 source) Localized edema; Translations: [Localized edema] Onset: 4 Episodic Residual codes; unclassified (2 sources) Gestation period, 14 weeks; Translations: [14 weeks gestation of ] 05-06-2024 Episodic Residual codes; unclassified (2 sources) Gestation period, 13 weeks; Translations: [13 weeks gestation of ] 10-30-2024 Episodic Residual codes; unclassified (2 sources) Gestation period, 16 weeks; Translations: [16 weeks gestation of ] 11-20-2024 Episodic Residual codes; unclassified (2 sources) Gestation period, 19 weeks; Translations: [19 weeks gestation of ] 12-11-2024 Episodic Thyroid disorders (20 sources) Hypothyroidism; Translations: [Hypothyroidism, unspecified] Onset: 0 06-10-2020 Chronic Thyroid disorders (6 sources) Disorder of thyroid, unspecified; Translations: [Disorder of thyroid gland] Onset: 3 10-02-2024 Episodic Transient cerebral ischemia (1 source) Transient cerebral ischemia; Translations: [Transient cerebral ischemic attack, unspecified] Onset: 1 06-16-2020 Chronic Unclassified (20 sources) History of SARS-CoV-2 05-10-2021 Unclassified (20 sources) Inhalation injury 06-16-2020 Unclassified (20 sources) Non-smoker 06-16-2020 Unclassified (1 source) CONTACT W/AND (SUSP) EXPOS COVID-19; Translations: [CONTACT W/AND (SUSP) EXPOS COVID-19] Onset: 3 Unclassified (15 sources) Patient encounter status 02-05-2024 Unclassified (1 source) Gestational Diabetes Onset: 5 Viral infection (20 sources) Viral disease 04-27-2023 Episodic Past or Other Problems Problem Classification Problem Date Documented Da te Episodic/Chronic Abdominal pain (20 sources) Abdominal pain; Translations: [Pain in pelvis] Onset: 9 10-12-2020 Episodic Acute bronchitis (20 sources) Acute infective bronchitis; Translations: [Acute bronchitis due to other specified organisms] Onset: 4 05-10-2021 Episodic Acute posthemorrhagic anemia (20 sources) Acute posthemorrhagic anemia; Translations: [Acute posthemorrhagic anemia] Onset: 0 06-10-2020 Episodic Allergic reactions (20 sources) Other allergy status, other than to drugs and biological substances; Translations: [Lfipv-us-lriiynx vesicular eczema of hands and feet] Onset: 4 Episodic Bacterial infection; unspecified site (20 sources) Bacterial infectious disease; Translations: [Other bacterial infections of unspecified site] Onset: 0 02-12-2020 Episodic Calculus of urinary tract (20 sources) History of calculus of kidney; Translations: [Personal history of urinary calculi] Onset: 4 11-21-2018 Episodic Cardiac dysrhythmias (20 sources) Palpitations; Translations: [Palpitations] Onset: 0 06-10-2020 Episodic Conditions associated with dizziness or vertigo (20 sources) Dizziness; Translations: [Dizziness and giddiness] Onset: 9 12-24-2020 Episodic Diabetes mellitus without complication (20 sources) Prediabetes; Translations: [Prediabetes] Onset: 4 Episodic Diseases of mouth; excluding dental (20 sources) Xerostomia; Translations: [Dry mouth, unspecified] Onset: 3 Episodic Fluid and electrolyte disorders (20 sources) Cerebral hyponatremia; Translations: [Hypo-osmolality and hyponatremia] [...] Episodic OB-related trauma to perineum and vulva (20 sources) First degree perineal tear during delivery - delivered; Translations: [First degree perineal laceration during delivery] Onset: 0 02-08-2021 Episodic Other aftercare (20 sources) Long-term current use of anticoagulant; Translations: [group home (current) use of anticoagulants] Onset: 0 02-22-2020 Episodic Other aftercare (20 sources) Long-term current use of drug therapy; 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] Onset: 9 [...] Onset: 4 01-11-2023 Episodic Other circulatory disease (20 sources) Elevated blood pressure; Translations: [Elevated blood-pressure reading, without diagnosis of hypertension] Onset: 4 09-28-2023 Episodic Other complications of ; puerperium affecting management of mother (20 sources) problem; Translations: [Unspecified disorders of ] [...] of ; puerperium affecting management of mother (20 sources) hemorrhage; Translations: [Other immediate hemorrhage] Onset: 0 02-08-2021 Episodic Other complications of (1 source) Vomiting of ; Translations: [Vomiting of , unspecified] Onset: 0 07-11-2019 Episodic Other complications of (20 sources) 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; Translations: [Maternal care for (suspected) chromosomal abnormality in fetus, not applicable or unspecified] Onset: 0 02-08-2021 Episodic Other complications of (4 sources) Other specified related conditions, third trimester; Translations: [OTH SPEC PREG RELATED COND 3RD TRI] Onset: 2 Episodic Other complications of (7 sources) Antiphospholipid syndrome; Translations: [Other diseases of the blood and blood-forming organs and certain disorders involving the immune mechanism complicating , unspecified trimester] Onset: 0 07-07-2019 Episodic Other ear and sense organ disorders (20 sources) Referred otalgia of right ear; Translations: [Otalgia, right ear] Onset: 4 11-19-2023 Episodic Other female genital disorders (20 sources) Noninflammatory disorder of the vagina; Translations: [Other specified noninflammatory disorders of vagina] Onset: 9 07-11-2019 Episodic Other female genital disorders (20 sources) Disorder of female reproductive system; Translations: [...] 4 12-24-2018 Episodic Other infections; including parasitic (20 sources) Personal history of other infectious and parasitic diseases; Translations: [History of COVID-19] Onset: 4 11-15-2023 Episodic Other inflammatory condition of skin (1 source) Itching of skin; Translations: [Pruritus, unspecified] Onset: 0 06-10-2020 Episodic Other inflammatory condition of skin (20 sources) Pruritus, unspecified; Translations: [Unspecified pruritic disorder] Onset: 0 11-15-2023 Episodic Other injuries and conditions due to external causes (20 sources) Inhalation injury; Translations: [Injury, unspecified, initial [...] Onset: 3 Episodic Other nervous system disorders (20 sources) Muscle fasciculation; Translations: [Fasciculation] Onset: 2 Episodic Other nervous system disorders (20 sources) Paresthesia of lower extremity; Translations: [Paresthesia of skin] Onset: 4 08-19-2021 Episodic Other nervous system disorders (20 sources) Acute postoperative pain; Translations: [Other acute postprocedural pain] Onset: 9 07-11-2019 Episodic Other non-traumatic joint disorders (20 sources) Joint pain; Translations: [Pain in unspecified joint] Onset: 7 09-11-2017 Episodic Other nutritional; endocrine; and metabolic disorders (20 sources) H/O: hypothyroidism; Translations: [Personal history of other endocrine, nutritional and metabolic disease] Onset: 4 04-27-2023 Episodic Other skin disorders (20 sources) Amoyq-re-rucpeqt vesicular eczema of hands and feet; Translations: [Dyshidrosis [pompholyx]] Onset: 4 11-15-2023 Episodic Other upper respiratory disease (20 sources) Deviated nasal septum; Translations: [Deviated nasal septum] Onset: 4 Episodic Other upper respiratory disease (20 sources) Polyp of nasal cavity and/or nasal [...] 01-20-2019 Episodic Residual codes; unclassified (20 sources) First trimester ; Translations: [Less than 8 weeks gestation of ] Onset: 0 02-12-2020 Episodic Residual codes; unclassified (20 sources) Gestation period, 32 weeks; Translations: [32 [...] Onset: 0 02-08-2021 Episodic Residual codes; unclassified (20 sources) Other general symptoms and signs; Translations: [Other general symptoms] Onset: 0 02-08-2021 Episodic Residual codes; unclassified (1 source) Unspecified blood type, Rh negative; Translations: [UNSPECIFIED BLOOD TYPE RH NEGATIVE] Onset: 2 Episodic Residual codes; unclassified (1 source) 28 weeks gestation of ; Translations: [28 WEEKS GESTATION OF ] Onset: 2 Episodic Residual codes; unclassified (20 sources) Intolerant of cold; Translations: [Other general symptoms and signs] Onset: 4 11-09-2023 Episodic Residual codes; unclassified (20 sources) Non-smoker; Translations: [Other specified health status] Onset: 4 11-15-2023 Episodic Residual codes; unclassified (20 sources) Swelling of salivary gland; Translations: [Localized edema] Onset: 4 11-15-2023 Episodic Spondylosis; intervertebral disc disorders; other back problems (20 sources) Neck pain; Translations: [Cervicalgia] Onset: 9 07-11-2019 Episodic Spontaneous (20 sources) Miscarriage Resolved: 9 01-20-2019 Episodic Syncope (20 sources) Syncope and collapse; Translations: [Syncope and collapse] Onset: 9 07-11-2019 Episodic Unclassified (20 sources) Onset: 7 Resolved: 5 11-01-2018 Unclassified (20 sources) Suspected disease caused by 2019-nCoV 12-24-2020 Unclassified (1 source) Exposure to 2019 novel coronavirus; Translations: [Contact with and (suspected) exposure to COVID19] Urinary tract infections (20 sources) Infective urethritis; Translations: [Other urethritis] Onset: 0 Episodic Results Test Name Value Interpretation Reference Range Facility Urinalysis macro (dipstick) panel (U)on 12-11-2024 Bilirubin, UA Negative Negative - 4(70) +++ mg/dL [facility] Blood, UA Negative Negative - 50 Max/mcL [facility] Clarity, UA Clear [facility] Color, UA Yellow [facility] Glucose, UA Negative Negative - 2000(110) ++++ mg/dL [facility] Interpretation and review of laboratory results Normal [facility] Ketones, UA Negative Negative - 160(16) ++++ mg/dL [facility] Leukocytes, UA Negative Negative - 500+++ John/mcL [facility] Nitrite, UA Negative Negative - Positive [facility] pH, UA 6 5 - 9 [facility] Protein, UA Negative Negative - 2000(20) ++++ mg/dL [facility] Spec Grav, UA 1.01 1 - 1.03 [facility] Urobilinogen, UA 1.0 0.2 - 12 mg/dL [facility] Urinalysis macro (dipstick) panel (U)on 11-20-2024 Bilirubin, UA Negative Negative - 4(70) +++ mg/dL [facility] Blood, UA Negative Negative - 50 Max/mcL [facility] Clarity, UA Clear [facility] Color, UA Yellow [facility] Glucose, UA Negative Negative - 2000(110) ++++ mg/dL [facility] Interpretation and review of laboratory results Normal [facility] Ketones, UA Negative Negative - 160(16) ++++ mg/dL [facility] Leukocytes, UA Negative Negative - 500+++ John/mcL [facility] Nitrite, UA Negative Negative - Positive [facility] pH, UA 6.5 5 - 9 [facility] Protein, UA Negative Negative - 1999(20) ++++ mg/dL [facility] Spec Grav, UA 1.005 1 - 1.03 [facility] Urobilinogen, UA 0.2 0.2 - 12 mg/dL [facility] Glucose random or fasting- P OCTon 11-19-2024 External Glucose Fasting Or Random (Fbs) 94 [facility] Urinalysis macro (dipstick) panel (U)on 10-30-2024 Bilirubin, UA Negative Negative - 4(70) +++ mg/dL [facility] Blood, UA Negative Negative - 50 Max/mcL [facility] Clarity, UA Clear [facility] Color, UA Yellow [facility] Glucose, UA Negative Negative - 1999(110) ++++ mg/dL [facility] Interpretation and review of laboratory results Normal [facility] Ketones, UA Negative Negative - 160(16) ++++ mg/dL [facility] Leukocytes, UA Negative Negative - 500+++ John/mcL [facility] Nitrite, UA Negative Negative - Positive [facility] pH, UA 7 5 - 9 [facility] Protein, UA Negative Negative - 1999(20) ++++ mg/dL [facility] Spec Grav, UA 1.01 1 - 1.03 [facility] Urobilinogen, UA 0.2 0.2 - 12 mg/dL [facility] 25(OH)D3 [facility] 2024 25-hydroxyvitamin D3 [Mass/Vol] 32.1 ng/mL Normal 31.0-80.[address] [facility] Comment on above: Order Comment: Speci men Type: BLOOD SPECIMENOrdering Facility: [facility] Address: [address] [place] [address] Result Comment: Clas sification of 25 [place] Vitamin D status: Deficiency/Insufficiency: < or = 30 ng/ml. Sufficiency/Optimal Levels: 31-80 ng/mL Toxicity: > 100 ng/mL. Test performed by chemiluminescent immunoassay. Performed By: #### 1 989-3 ####[facility] LABCLIA [id number] [place] [address] [place] CBC W Auto Differential pane l (Bld)on 10-28-2024 Basophils (Bld) [#/Vol] 0.03 10*3/uL Normal <0.[address] [facility] Comment on above: Order Comment: Speci men Type: BLOOD SPECIMENOrdering Facility: [facility] Address: [address] [place] [address] Performed By: #### 5 7021-8 ####[facility] LABCLIA [id number] [place] [address] Basophils/100 WBC (Bld) 0.3 % Normal [facility] Comment on above: Order Comment: Speci men Type: BLOOD SPECIMENOrdering Facility: [facility] Address: [address] [place] [address] Performed By: #### 5 7021-8 ####[facility] LABCLIA [id number] [place] [address] Differential cell count method Nom (Bld) Auto Normal [facility] Comment on above: Order Comment: Speci men Type: BLOOD SPECIMENOrdering Facility: [facility] Address: [address] [place] [address] Performed By: #### 5 7021-8 ####[facility] LABCLIA [id number] [place] [address] Eosinophils (Bld) [#/Vol] 0.05 10*3/uL Normal <0.[address] [facility] Comment on above: Order Comment: Speci men Type: BLOOD SPECIMENOrdering Facility: [facility] Address: [address] [place] [address] Performed By: #### 5 7021-8 ####[facility] LABCLIA [id number] [place] [address] Eosinophils/100 WBC (Bld) 0.5 % Normal [facility] Comment on above: Order Comment: Speci men Type: BLOOD SPECIMENOrdering Facility: [facility] Address: [address] [place] [address] Performed By: #### 5 7021-8 ####[facility] LABCLIA [id number] [place] [address] Erythrocyte distribution width (RBC) [Ratio] 14.5 % Normal 11.5-15.[address] [facility] Comment on above: Order Comment: Speci men Type: BLOOD SPECIMENOrdering Facility: [facility] Address: [address] [place] [address] Performed By: #### 5 7021-8 ####[facility] LABCLIA [id number] [place] [address] Hematocrit (Bld) [Volume fraction] 36.9 % Normal 36.0-46.[address] [facility] Comment on above: Order Comment: Speci men Type: BLOOD SPECIMENOrdering Facility: [facility] Address: [address] [place] [address] Performed By: #### 5 7021-8 ####[facility] LABCLIA [id number] [place] [address] Hemoglobin (Bld) [Mass/Vol] 13.0 g/dL Normal 11.5-15.[address] [facility] Comment on above: Order Comment: Speci men Type: BLOOD SPECIMENOrdering Facility: [facility] Address: [address] [place] [address] Performed By: #### 5 7021-8 ####[facility] LABCLIA [id number] [place] [address] Immature granulocytes (Bld) [#/Vol] 10*3/uL Normal <0.[address] [facility] Comment on above: Order Comment: Speci men Type: BLOOD SPECIMENOrdering Facility: [facility] Address: [address] [place] [address] Performed By: #### 5 7021-8 ####[facility] LABCLIA [id number] [place] [address] Immature granulocytes/100 WBC (Bld) 0.2 % Normal [facility] Comment on above: Order Comment: Speci men Type: BLOOD SPECIMENOrdering Facility: [facility] Address: [address] [place] [address] Performed By: #### 5 7021-8 ####[facility] LABCLIA [id number] [place] [address] Lymphocytes (Bld) [#/Vol] 2.50 10*3/uL Normal 1.00-4.[address] [facility] Comment on above: Order Comment: Speci men Type: BLOOD SPECIMENOrdering Facility: [facility] Address: [address] [place] [address] Performed By: #### 5 7021-8 ####[facility] LABCLIA [id number] [place] [address] Lymphocytes/100 WBC (Bld) 26.3 % Normal [facility] Comment on above: Order Comment: Speci men Type: BLOOD SPECIMENOrdering Facility: [facility] Address: [address] [place] [address] Performed By: #### 5 7021-8 ####[facility] LABCLIA [id number] [place] [address] MCH (RBC) [Entitic mass] 30.6 pg Normal 26.0-34.[address] [facility] Comment on above: Order Comment: Speci men Type: BLOOD SPECIMENOrdering Facility: [facility] Address: [address] [place] [address] Performed By: #### 5 7021-8 ####[facility] LABCLIA [id number] [place] [address] MCHC (RBC) [Mass/Vol] 35.2 g/dL Normal 30.5-36.0 [facility] Comment on above: Order Comment: Speci men Type: BLOOD SPECIMENOrdering Facility: [facility] Address: [address] [place] [address] Performed By: #### 5 7021-8 ####[facility] LABCLIA [id number] [place] [address] MCV (RBC) [Entitic vol] 86.8 fL Normal 80.0-100.[address] [facility] Comment on above: Order Comment: Speci men Type: BLOOD SPECIMENOrdering Facility: [facility] Address: [address] [place] [address] Performed By: #### 5 7021-8 ####[facility] LABCLIA [id number] [place] [address] Monocytes (Bld) [#/Vol] 0.44 10*3/uL Normal <0.[address] [facility] Comment on above: Order Comment: Speci men Type: BLOOD SPECIMENOrdering Facility: [facility] Address: [address] [place] [address] Performed By: #### 5 7021-8 ####[facility] LABCLIA [id number] [place] [address] Monocytes/100 WBC (Bld) 4.6 % Normal [facility] Comment on above: Order Comment: Speci men Type: BLOOD SPECIMENOrdering Facility: [facility] Address: [address] [place] [address] Performed By: #### 5 7021-8 ####[facility] LABCLIA [id number] [place] [address] Neutrophils (Bld) [#/Vol] 6.48 10*3/uL Normal 1.45-7.[address] [facility] Comment on above: Order Comment: Speci men Type: BLOOD SPECIMENOrdering Facility: [facility] Address: [address] [place] [address] Performed By: #### 5 7021-8 ####[facility] LABCLIA [id number] [place] [address] Neutrophils/100 WBC (Bld) 68.1 % Normal [facility] Comment on above: Order Comment: Speci men Type: BLOOD SPECIMENOrdering Facility: [facility] Address: [address] [place] [address] Performed By: #### 5 7021-8 ####[facility] LABCLIA [id number] [place] [address] Nucleated RBC (Bld) [#/Vol] 10*3/uL Normal <0.[address] [facility] Comment on above: Order Comment: Speci men Type: BLOOD SPECIMENOrdering Facility: [facility] Address: [address] [place] [address] Performed By: #### 5 7021-8 ####[facility] LABCLIA [id number] [place] [address] Nucleated RBC/100 WBC (Bld) [Ratio] 0.0 /[address] [facility] Comment on above: Order Comment: Speci men Type: BLOOD SPECIMENOrdering Facility: [facility] Address: [address] [place] [address] Performed By: #### 5 7021-8 ####[facility] LABCLIA [id number] [place] [address] Platelet mean volume (Bld) [Entitic vol] 9.8 fL Normal 9.0-12.[address] [facility] Comment on above: Order Comment: Speci men Type: BLOOD SPECIMENOrdering Facility: [facility] Address: [address] [place] [address] Performed By: #### 5 7021-8 ####[facility] LABCLIA [id number] [place] [address] Platelets (Bld) [#/Vol] 327 10*3/uL Normal 150-[address] [facility] Comment on above: Order Comment: Speci men Type: BLOOD SPECIMENOrdering Facility: [facility] Address: [address] [place] [address] Performed By: #### 5 7021-8 ####[facility] LABCLIA [id number] [place] [address] RBC (Bld) [#/Vol] 4.25 10*6/uL Normal 3.90-5.20 [facility] Comment on above: Order Comment: Speci men Type: BLOOD SPECIMENOrdering Facility: [facility] Address: [address] [place], [place] [address] Performed By: #### 5 7021-8 ####[facility] LABCLIA [id number] [place] [address] WBC (Bld) [#/Vol] 9.52 10*3/uL Normal 3.70-11.00 [facility] Comment on above: Order Comment: Speci men Type: BLOOD SPECIMENOrdering Facility: [facility] Address: [address] [place], [place] [address] Performed By: #### 5 7021-8 ####[facility] LABCLIA [id number] [place] [address] CNOVSPon 10-28-2024 CNOVSP Visit (SP) Office ( [facility]AS[facility]) JUSTICE,MADHU ([id number]) 1985 F Date Time Provider Department 10/28/24 2:30 PM GRANT NEGRETE During your visit today, we recorded the following information about you: Temperature Pulse Respiration Blood pressure 97 degrees 82/minute 16/minute 122/77 Weight Last Period 94.1 kg 10/28/24 Grant Negrete APRN.MEDICAL IMAGING TECHNICIAN 10/29/2024 9:44 PM Signed NAME: Madhu Rendon CLINIC NO.: [id number] DATE OF SERVICE: October 28, 2024 (Arsh) Some elements in this clinic note that are critical to medical decision making have been carefully reviewed and included from a prior clinic note dated: October 10, 2024 (Levon) Additional Clinicians involved in Madhu Rendon's care: Jorge Mcwilliams Monge, Humaira Gaviria, Dr. Boothe CC: Hypercoag state CASE SUMMARY / ASSESSMENT: 39 year old woman presents with a prior history of CVA in 2016 and an antiphospholipid antibody that was identified much later in 2018. These were found in [place], [place]. I don't have access to these [...] a target-like rash shortly before presenting to [facility] in 2015 with headaches and was diagnosed with a CVA. - She saw Dr. Baugh but no relevant conclusion was made. She remains on Lovenox - still breast feeding. No clinical need to recheck her APL Ab or Cardiolipin Ab's as results will not change our treatment plan despite her recent miscarriage. Placental evaluation is still pending as of April 2024. SUMMARIZED PLAN OF CARE: Triage to call with lab results Continue Lovenox - patient prefers 40 mg (rather than rec 80mg) Encouraged her to reconsider Resume B12 RTC in 8 weeks Labs same day - ____ HPI: Updated Visit, 10/28/2024: Patient with a history of CVA in 2016 and TIA in 2018, currently managed with Lovenox 40 mg daily, presents for evaluation. She is 13 weeks and has a history of multiple miscarriages, including a recent one at 14 weeks in April and another at 17 weeks over 10 years ago due to placental issues. She reports experiencing morning sickness and constipation, which prevented her from taking vitamins for a month. She has recently resumed vitamins and plans to restart vitamin D supplementation but has not been taking the prescribed sublingual B12 due to previous side effects of feeling jittery and weird. She also notes the appearance of little red dots on her skin, which she has not observed before. Recent labs show a WBC count of 9.52 x 109/L, hemoglobin at 13 g/dL, and platelets at 327 x 109/L. Results for kidney, liver, electrolytes, thyroid, iron, ferritin, vitamin D, and vitamin B levels are pending. Updated Visit, May 28, 2024: Madhu returns today for a follow up. She unfortunately had a miscarriage, at 14 weeks, earlier this month. She required surgical intervention to remove the placenta - held Lovenox for 2 days prior, has resumed now. She endorses fatigue, is improving now. Today's Hgb is slightly lower than her normal but is within normal range. Iron studies are pending. She had one instance of prolonged bleeding following a lab draw. I encouraged her to continue supplemental B12 at home. Updated Visit, January 02, 2024: Madhu returns [...] January - MRI was negative. Numbness and vi (more content not included)... Normal [facility] MADHU [facility]END[facility] ([id number]) 1985 F Date Time Provider Department 10/28/24 GRANT NEGRETE During your visit today, we recorded the following information about you: Roberta Haskins 10/28/2024 2:52 PM Signed Valeri Yan RN 10/30/2024 8:30 AM Signed Labs resulted. Please advise. MARSHA Barajas Mindy M, PA-C 11/04/2024 8:13 AM Signed Grant saw this patient last and will be able to advise better of the plan of care. NELI Buck Holly, VICTOR HUGO.MEDICAL IMAGING TECHNICIAN 11/05/2024 12:33 PM Signed Spoke with Dr. Moscoso and she is to continue Lovenox 40 daily and add baby asa (81 mg) daily. Please also make sure she is following OB High risk. Labs acceptable at this time. Will monitor. Thanks, Grant Negrete APRN.Naga Brown RN 11/05/2024 12:51 PM Signed Pt updated. She reports she is unable to take aspirin. It makes my electrolytes go out of whack. I didn't take with my previous pregnancies and I am not comfortable taking this time either. She will continue with Lovenox, as recommended. Pt is scheduled for appt with high lift driver, 11/19/24, [facility]. She denies further questions, needs or concerns for our care team at this time. Appt verified for RTC Naga Johnson RN Allergies As of Date: 10/28/2024 Noted Allergy Reaction CIPROFLOXACIN 05/19/2019 14 - [...] GI Upset Crampy and gassy Date Reviewed: 10/28/2024 Reviewed by: Joann Portillo MA - Fully Assessed Reason for Visit: Results [95] Prescriptions as of 11/05/2024 - enoxaparin (LOVENOX) 40 mg/0.4 mL INJECT 1 SYRINGE SUBCUTANEOUSLY EVERY 24 HOURS - progesterone vaginal suppository 200 mg (CPD) Use 200 mg vaginally. Unwrap and insert as directed. - polyethylene glycol 3350 (MIRALAX PO) Take by mouth. - docusate sodium (COLACE PO) Take by mouth. - metFORMIN ER (GLUCOPHAGE XR) 500 mg 24 hr tablet - multivitamin tablet Take 1 tablet by mouth once daily. 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 Comprehensive metabolic 2000 panelon 10-28-2024 Albumin [Mass/Vol] 4.4 g/dL Normal 3.9-4.9 [facility] Comment on above: Order Comment: Speci men Type: BLOOD SPECIMENOrdering Facility: [facility] Address: [address] [place] [address] Performed By: #### 2 4323-8 ####[facility] LABCLIA [id number] [place] [address] ALP [Catalytic activity/Vol] 55 U/L Normal 34-[address] [facility] Comment on above: Order Comment: Speci men Type: BLOOD SPECIMENOrdering Facility: [facility] Address: [address] [place] [address] Performed By: #### 2 4323-8 ####[facility] LABCLIA [id number] [place] [address] ALT [Catalytic activity/Vol] 18 U/L Normal 7-[address] [facility] Comment on above: Order Comment: Speci men Type: BLOOD SPECIMENOrdering Facility: [facility] Address: [address] [place] [address] Performed By: #### 2 4323-8 ####[facility] LABCLIA [id number] [place] [address] Anion gap [Moles/Vol] 12 mmol/L Normal 8-15 [facility] Comment on above: Order Comment: Speci men Type: BLOOD SPECIMENOrdering Facility: [facility] Address: [address] [place] [address] Performed By: #### 2 4323-8 ####[facility] LABCLIA [id number] [place] [address] AST [Catalytic activity/Vol] 13 U/L Normal 13-[address] [facility] Comment on above: Order Comment: Speci men Type: BLOOD SPECIMENOrdering Facility: [facility] Address: [address] [place] [address] Performed By: #### 2 4323-8 ####[facility] LABCLIA [id number] [place] [address] Bilirubin [Mass/Vol] 0.2 mg/dL Normal 0.2-1.3 [facility] Comment on above: Order Comment: Speci men Type: BLOOD SPECIMENOrdering Facility: [facility] Address: [address] [place] [address] Performed By: #### 2 4323-8 ####[facility] LABCLIA [id number] [place] [address] Calcium [Mass/Vol] 9.9 mg/dL Normal 8.5-10.2 [facility] Comment on above: Order Comment: Speci men Type: BLOOD SPECIMENOrdering Facility: [facility] Address: [address] [place] [address] Performed By: #### 2 4323-8 ####[facility] LABCLIA [id number] [place] [address] Chloride [Moles/Vol] 99 mmol/L Normal 98-107 [facility] Comment on above: Order Comment: Speci men Type: BLOOD SPECIMENOrdering Facility: [facility] Address: [address] [place] [address] Performed By: #### 2 4323-8 ####[facility] LABCLIA [id number] [place] [address] CO2 [Moles/Vol] 22 mmol/L Normal 22-[address] [facility] Comment on above: Order Comment: Speci men Type: BLOOD SPECIMENOrdering Facility: [facility] Address: [address] [place] [address] Performed By: #### 2 4323-8 ####[facility] LABCLIA [id number] [place] [address] Creatinine [Mass/Vol] 0.60 mg/dL Normal 0.58-0.96 [facility] Comment on above: Order Comment: Speci men Type: BLOOD SPECIMENOrdering Facility: [facility] Address: [address] [place] [address] Performed By: #### 2 4323-8 ####[facility] LABCLIA [id number] [place] [address] Creatinine and Glomerular filtration rate.predicted panel (S/P/Bld) 117 mL/min/1.73m??? Normal >=[address] [facility] Comment on above: Order Comment: Cesar redd Type: BLOOD SPECIMENOrdering Facility: [facility] Address: [address] [place] [address] Result Comment: Hawa mated Glomerular Filtration Rate [...] accurately reflect actual GFR. Performed By: #### 2 4323-8 ####[facility] LABCLIA [id number] [place] [address] Glucose [Mass/Vol] 101 mg/dL High 74-99 [facility] Comment on above: Order Comment: Cesar redd Type: BLOOD SPECIMENOrdering Facility: [facility] Address: [address] [place] [address] Result Comment: The [place] Diabetes Association (ADA) provides guidance for cutoff [...] Standards of Medical Care in Diabetes 2016, [place] [employer] Association. Diabetes Care. 2016.39(Suppl 1). Performed By: #### 2 4323-8 ####[facility] LABCLIA [id number] [place] [address] Potassium [Moles/Vol] 3.5 mmol/L Low 3.7-5.1 [facility] Comment on above: Order Comment: Speci men Type: BLOOD SPECIMENOrdering Facility: [facility] Address: [address] [place] [address] Performed By: #### 2 4323-8 ####[facility] LABCLIA [id number] [place] [address] Protein [Mass/Vol] 7.6 g/dL Normal 6.3-8.0 [facility] Comment on above: Order Comment: Speci men Type: BLOOD SPECIMENOrdering Facility: [facility] Address: [address] [place] [address] Performed By: #### 2 4323-8 ####[facility] LABCLIA [id number] [place] [address] Sodium [Moles/Vol] 133 mmol/L Low 136-144 [facility] Comment on above: Order Comment: Speci men Type: BLOOD SPECIMENOrdering Facility: [facility] Address: [address] [place] [address] Performed By: #### 2 4323-8 ####[facility] LABCLIA [id number] [place] [address] Urea nitrogen [Mass/Vol] 7 mg/dL Normal 7-[address] [facility] Comment on above: Order Comment: Speci men Type: BLOOD SPECIMENOrdering Facility: [facility] Address: [address] [place] [address] Performed By: #### 2 4323-8 ####[facility] LABCLIA [id number] [place] [address] Ferritin [facility] Ferritin [Mass/Vol] 99.6 ng/mL Normal 14.7-205.1 [facility] Comment on above: Order Comment: Speci men Type: BLOOD SPECIMENOrdering Facility: [facility] Address: [address] [place] [address] Performed By: #### 2 132-9, 2276-4, 59501-9, 3016-3 ####[facility] LABIA [id number] [place] [id number] [facility] Iron and Iron binding capaci ty panelon 10-28-2024 Iron [Mass/Vol] 72 ug/dL Normal 41-[address] [facility] Comment on above: Order Comment: Speci men Type: BLOOD SPECIMENOrdering Facility: [facility] Address: [address] [place] [address] Performed By: #### 2 132-9, 2276-4, 02515-5, 3016-3 ####[facility] [id number] [address] [place] [facility] Iron binding capacity [Mass/Vol] 399 ug/dL High 232-[address] [facility] Comment on above: Order Comment: Speci men Type: BLOOD SPECIMENOrdering Facility: [facility] Address: [address] [place] [address] Performed By: #### 2 132-9, 2276-4, 74361-0, 3016-3 ####[facility] [id number] [address] [place] Iron/TIBC [Molar ratio] 18.0 % Normal 15.0-57.[address] [facility] Comment on above: Order Comment: Speci men Type: BLOOD SPECIMENOrdering Facility: [facility] Address: [address] [place] [address] Performed By: #### 2 132-9, 2276-4, 30993-6, 3016-3 ####[facility] [id number] [place] [id number] [place] TSHon 10-28-2024 Thyroid Stimulating (3Rd Generation) Hormone/ Tsh 1.25 [facility] TSH SerPl-aCncon 10-28-2024 TSH Qn 1.250 m[IU]/L Normal 0.270-4.[address] [facility] Comment on above: Order Comment: Cesar redd Type: BLOOD SPECIMENOrdering Facility: [facility] Address: [address] [place] [address] [place] [address] Result Comment: If t he patient is , TSH reference range varies by gestational period: First Trimester (weeks 9-12): 0.180-2.990 mIU/L Second Trimester: 0.110-3.980 mIU/L Third Trimester: 0.480-4.710 mIU/L Danny Varela et al. A Practical Approach for the Verifications and Determination of Site- and Trimester-Specific Reference Intervals for Thyroid Function tests in . Thyroid, 2019:29:3:412-420. Saeed E, et al. 2017 Guidelines of the [place] Thyroid Association for the Diagnosis and Management of Thyroid Disease during and the . Thyroid, 2017:27:3:315-389. Performed By: #### 2 132-9, 2276-4, 84493-0, 3016-3 ####[facility] LABIA [id number] [place] [address] [place] Vit B12 [facility] -01-2 025 Cobalamin (Vitamin B12) [Mass/Vol] 483 pg/mL Normal 232-[address] [facility] Comment on above: Order Comment: Cesar redd Type: BLOOD SPECIMENOrdering Facility: [facility] Address: [address] [place], [place] [address] [address] Performed By: #### 2 132-9, 2276-4, 05123-8, 3016-3 ####[facility] [id number] [place] [id number] [place] CNPRosaura 10-24-2024 CNPN Telephone (ROD) MADHU [id number]) 1985 F Date Time Provider Department 10/24/24 GRANT NEGRETE During your visit today, we recorded the following information about you: Valery Dunham MA 10/24/2024 2:14 PM Signed New orders may need placed for appt on 10/28. Valery Dunham MA Allergies As of Date: 10/24/2024 Noted Allergy Reaction CIPROFLOXACIN 05/19/2019 14 - [...] GI Upset Crampy and gassy Date Reviewed: 08/26/2024 Reviewed by: Grant Negrete APRN.MEDICAL IMAGING TECHNICIAN - Fully Assessed Reason for Visit: Lab Orders [4378] Prescriptions as of 10/24/2024 - enoxaparin (LOVENOX) 40 mg/0.4 mL INJECT 1 SYRINGE SUBCUTANEOUSLY EVERY 24 HOURS - famotidine (PEPCID) 20 mg tablet Take 1 tablet by mouth once daily. To take prior to infusion - metFORMIN ER (GLUCOPHAGE XR) 500 mg 24 hr tablet - multivitamin tablet Take 1 tablet by mouth once daily. Problem List As Of Date 10/24/2024 Noted Resolved Antiphospholipid antibody positive [R76.0] 09/10/2017 Fatigue [R53.83] 12/29/2016 Pain in joint [M25.50] 12/29/2016 Migraine with aura and without status migrainos*09/12/2017 Anti-cardiolipin antibody positive [R76.0] 09/25/2017 Iron deficiency anemia secondary to blood loss *03/27/2022 Iron deficiency anemia of [O99.019, D*03/27/2022 Primary hypercoagulable state (HCC) [D68.59] 08/01/2022 CVA, old, speech/language deficit [I69.328] 08/01/2022 Antiphospholipid antibody syndrome (HCC) [D68.6*05/28/2024 Vitamin D deficiency [E55.9] 05/28/2024 Encounter Status:Closed by VALERY DUNHAM on 10/24/[address] [facility] US OB TRANSVAGINALon 025 US OB TRANSVAGINAL EXAM: US OB TRANSVAG INAL HISTORY: Viability, history of miscarriages. COMPARISON: None [...] 05/05/2025. Interpreted by: Electronically signed by CARLOS AHMADI II, MD, PHD at 21-Oct-2024 08:31:21 AM [facility] Normal Not Available Comment on above: Order Comment: US OB VIABILITY PLEASE PERFORM TRANSVAGINAL ULTRASOUND IF INDICATED No LMP recorded. ALL CBC WITH AUTO DIFFon BASOPHILS ABSOLUTE AUTO 0 [facility] Basophils/100 WBC (Bld) 0.2 % 0.2 - 2.0 % [facility] Eosinophils/100 WBC (Bld) 0.4 % Low 0.9 - 7.0 % [facility] Erythrocyte distribution width (RBC) [Ratio] 14 % 11.0 - 15.0 % [facility] Hematocrit (Bld) [Volume fraction] 38.1 % 36.0 - 48.0 % [facility] Hemoglobin (Bld) [Mass/Vol] 13.2 g/dL 12.0 - 16.0 g/dL [facility] IMMATURE GRANULOCYTES ABS AUTO 0.03 [facility] Immature granulocytes/100 WBC (Bld) 0.3 % 0.0 - 0.5 % [facility] Interpretation and review of laboratory results Abnormal [facility] LYMPHOCYTES ABSOLUTE AUTO 2.6 [facility] Lymphocytes/100 WBC (Bld) 29.1 % 20.5 - 60.0 % [facility] MCH (RBC) [Entitic mass] 29.9 pg 26.7 - 34.0 pg [facility] MCHC (RBC) [Mass/Vol] 34.6 g/dL 29.9 - 35.2 g/dL [facility] MCV (RBC) [Entitic vol] 86.2 fL 81.0 - 99.0 fL [facility] MONOCYTES ABSOLUTE AUTO 0.6 [facility] Monocytes/100 WBC (Bld) 7.2 % 1.7 - 12.0 % [facility] NEUTROPHILS ABSOLUTE AUTO 5.6 [facility] Neutrophils/100 WBC (Bld) 62.8 % 43.0 - 75.0 % [facility] Platelet mean volume (Bld) [Entitic vol] 10.1 fL 9.5 - 13.5 fL [facility] TBH EO # 0 [facility] [address]T [address] [facility] RBC 4.42 [facility] WBC 8.9 [facility] Drug Screen, Urineon 025 Amphetamine/Methamphe tamine Negative [facility] Barbiturates Negative [facility] Benzodiazepines Negative [facility] Cocaine Metabolite Negative [facility] Ecstasy Negative [facility] Methadone Negative [facility] Opiates Negative [facility] Oxycodone Negative [facility] Phencyclidine Negative [facility] Thc Marijuana, Urine Negative [facility] HBV surface Ag IA Qlon 10-06 Hepatitis B Surface Antigen Negative [facility] HIV 1+2 Ab+HIV1 p24 Ag IA Ql on 10-06-2024 HIV 1&2 AB/AG Negative [facility] Hemoglobin A1con 10-06-2024 HbA1c (Bld) [Mass fraction] 5.9 % 4.0 - 6.0 % [facility] No Panel Informationon 10-06 [facility] TSHon 10-06-2024 Thyroid Stimulating (3Rd Generation) Hormone/ Tsh 1.131 [facility] Type and screenon 10-06-2024 Abo/Rh(D) Negative [facility] HCG ( test) Ql (U)o n 10-02-2024 Interpretation and review of laboratory results Abnormal [facility] Preg Test, Ur Positive Negative [facility] Urinalysis macro (dipstick) panel (U)on 10-02-2024 Bilirubin, UA Negative Negative - 4(70) +++ mg/dL [facility] Blood, UA Negative Negative - 50 Max/mcL [facility] Clarity, UA Clear [facility] Color, UA Yellow [facility] Glucose, UA Negative Negative - 2000(110) ++++ mg/dL [facility] Interpretation and review of laboratory results Normal [facility] Ketones, UA Negative Negative - 160(16) ++++ mg/dL [facility] Leukocytes, UA Negative Negative - 500+++ John/mcL [facility] Nitrite, UA Negative Negative - Positive [facility] pH, UA 6 5 - 9 [facility] Protein, UA Negative Negative - 2000(20) ++++ mg/dL [facility] Spec Grav, UA 1.025 1 - 1.03 [facility] Urobilinogen, UA 0.2 0.2 - 12 mg/dL [facility] US OB TRANSVAGINALon [address] [place] [address] Ultrasound Report Signed Patient: MADHU RENDON MR#: [id number] : 1985 Acct:[id number] Age/Sex: 38 / F ADM Date: 09/11/24 Loc: US Attending Dr: Wilton Herrmann D.O. Ordering Physician: Wilton Herrmann D.O. Date of Service: 09/11/24 Procedure(s): US OB transvaginal Accession Number(s): [id number] cc: Wilton Herrmann D.O.; [place] [id number] Patient Name: MADHU RENDON MRN: [facility]:[id number] date: 1985 Sex: F Assigned Patient Location: US Current Patient Location: Accession/Order Number: [id number] Exam Date: 09/11/2024 11:34 Report Date: 09/11/2024 11:36 At the request of: WILTON HERRMANN DO Procedure: US OB transvaginal US [...] Montano M.D. 09/11/2024 11:36 AM Dictation Location: [place] [address] Electronically authenticated by: [id number] Y Date: 09/11/2024 11:36 Dictated By: Baljinder Montano M.D. Signed By: 09/11/24 1138 DD/ 1136 TD/TT: Rechecker: [facility] Radiology Radiologi MD julio cesar - 09/11/2024 [place] [address] Ultrasound Report Signed Patient: MADHU RENDON MR#: [id number] : 1985 Acct:[id number] Age/Sex: 38 / F ADM Date: 09/11/24 Loc: US Attending Dr: Wilton Montez D.O. Ordering Physician: Wilton Herrmann D.O. Date of Service: 09/11/24 Procedure(s): US OB transvaginal Accession Number(s): [id number] cc: Wilton Herrmann D.O.; [place] [address] [address] Patient Name: MADHU RENDON MRN: [facility]:[id number] date: 1985 Sex: F Assigned Patient Location: US Current Patient Location: US Accession/Order Number: [id number] Exam Date: 09/11/2024 11:34 Report Date: 09/11/2024 11:36 At the request of: WILTON HERRMANN DO Procedure: US OB transvaginal US [...] Montano M.D. 09/11/2024 11:36 AM Dictation Location: [place] [address] Electronically authenticated by: [id number] Y Date: 09/11/2024 11:36 Dictated By: Baljinder Montano M.D. Signed By: 09/11/24 1138 DD/ 1136 TD/TT: Rechecker: [facility] Radiology Study observation (narrative) [facility] US OB TRANSVAGINALOrdered By : Radiologist Radiology on 09-11-2024 [facility] [address] m[IU]/mL High 1-3 F [facility] Comment on above: Result Comment: 'F N ON < 1 - 3' ' 0.2 - 1 WEEK = 5 TO 50' ' 1 - 2 WEEKS = 50 - 500' ' 2 - 3 WEEKS = 100 - 5000' ' 3 - 4 WEEKS = 500 - 36871' ' 4 - 5 WEEKS = 1000 - 91338' ' 5 - 6 WEEKS = 30304 - [id number]' ' 6 - 8 WEEKS = 75838 - 785523' ' 8 - 12 WEEKS = 93171 - 760815' Performed By: #### 2 [id number] #### [facility] [address] [place] [address] Ambulatory Visit Summaryon 0 09-07-2024 Ambulatory Visit Summary Ambulatory Visit Summary MADHU RENDON :1985 Visit Date:09/07/2024 Ambulatory Visit Instructions Your Diagnosis Viral URI with cough Cough Your Care Team Attending Physician - Romulo Chiu PA-C Primary Care Physician - Evans CASAS DO, FAAFP This Is Your Medications List Contact prescribing physician if questions or concerns enoxaparin (Lovenox 40 mg/0.4 mL Injection) ergocalciferol (Vitamin D) fluticasone nasal (Flonase 0.05 mg/inh [place]) levothyroxine (levothyroxine 25 mcg (0.025 mg) Tab) metformin (MetFORMIN (Eqv-Glucophage XR) 500 mg oral tablet, extended release) Procedures Performed Biopsy of breast (06/14/2013), Extraction of wisdom tooth (2006), endoscopy for ovarian cysts to drain. Discharge Vitals Temperature (Oral) 36.6 ???C Heart Rate (Peripheral) 88 Blood Pressure 132/76 Height 167 cm Height 66 in Weight 96.4 kg Weight 212.525 lb BMI 34.57 What to do next Scheduled Follow-Up Appointments Sunday 8:20 AM EDT With: Evans CASAS DO, FAAFP Where: [facility] [address], [place] [address]- Medications What How Much When Instructions Unchanged enoxaparin (Lovenox 40 mg/ 0.4 mL Injection) 40 Milligram Subcutaneous Every 24 hours Contact prescribing physician if questions or concerns Unchanged ergocalciferol (Vitamin D) 2,000 International unit By Mouth Every week Contact prescribing physician if questions or concerns Unchanged fluticasone nasal (Flonase 0.05 mg/ inh [place]) 2 Sprays Nasal Inhalation Every day each nostril Contact prescribing physician if questions or concerns Unchanged levothyroxine (levothyroxine 25 mcg (0.025 mg) Tab) 1 Tablets By Mouth Every day Dr. Celaya Contact prescribing physician if questions or concerns Unchanged metformin (MetFORMIN (Eqv-Glucophage XR) 500 mg oral tablet, extended release) 2 Tablets By Mouth Every day Contact prescribing physician if questions or concerns Allergies Milk Products (Illness) ciprofloxacin (Numbness and tingling of skin, Nausea) Problems Ongoing - Any problem that you are currently receiving treatment for. Acute bronchitis due to other specified organisms Antiphospholipid antibody with hypercoagulable state Antiphospholipid syndrome Autoimmune hypothyroidism Blood pressure elevated without history of HTN BMI 35.0-35.9,adult Cold intolerance COVID-19 vaccine dose declined Deviated septum Dry mouth Dysfunction of right eustachian tube Dyshidrotic eczema Elevated blood pressure reading Environmental allergies Facial paresthesia Fatigue GERD with esophagitis Gestational diabetes H/O: CVA H/O: hypothyroidism History [...] pain Right ovarian cyst Salivary gland swelling Sinusitis Snoring Systemic viral illness TMJ syndrome Weakness Well adult exam Historical - Any [...] Spontaneous miscarriage Suspected COVID-19 virus infection Vaginal alia Patient Survey You may receive a survey via text or e-mail asking about your office visit. Please share your experience with us by completing your survey. We appreciate your feedback and thank you for choosing us for your care. Ronen Ramsey [facility] Family Medicine Office/Clini c Noteon 09-07-2024 Family Medicine Office/Clinic Note Family Medicine Office/Clinic Note Chief Complaint cough, sinus pressure HPI Staff 38 year old female presents with cold symptoms stuffy nose, sore throat, head congestion/pressure. not coughing up phlegm. Pt states oxygen from phone drops when laying down, pt is . Pt has had pneumonia recently. No Fever, cough makes her nauseous. Onset started Sunday, but progressed more Sunday OTC cough drops, Flonase with her allergies History of Present Illness I have reviewed and verified the staff HPI to be accurate for this encounter. Portions of this record have been created with voice recognition software. Occasional wrong-word or ???[id number]??? substitutions may have occurred due to the inherent limitations of voice recognition software. 38 yo female with hx of antiphospholipid syndrome, autoimmune hypothyroidism, CVA, NEETA, prediabetes, palpitations, presents today with cc of stuffy nose, cough, tightness in chest. Pt is currently , approximately 5 weeks gestation G 8 P 4. Patient states she had a miscarriage in April at approximately 14 weeks gestation. Patient states symptoms started on Sunday x 4 days ago. States that 2 of her kids had similar cough and cold-like symptoms and her youngest recently had croup. Started with cold-like symptoms stuffy nose sore throat head congestion pressure. States cough she just noticed yesterday. States cough is dry nonproductive. States that her cough is making her nauseated. She denies any fever or chills. States she has had pneumonia in the past. Was treated for pneumonia in January 2024. Patient states she noted on her phone that her oxygen dropped when she was laying down flat. Is unsure if this is related to current but again only 5 weeks gestation. Patient states with her symptoms starting on Sunday they seem to worsen x 2 days ago on Sunday. Has been using [id number]-[id number] cough drops and Flonase for her allergies. Pt states she feels her cough is causing tightness more so in her throat and actually in her chest denies any chest pain shortness of breath or difficulty breathing. Denies history of asthma but states that her primary care provider has treated her in the past with albuterol inhaler when she does get sick. She denies any wheezing. Denies any belly pain. Has not had any nausea or vomiting thus far in this . She is seeing OB Dr. Herrmann, has her first appointment scheduled around 9 weeks gestation. She has no other concerns at this time. Review of Systems PHQ Score Initial Depression Screen Score: 0 SCORE ROS negative unless otherwise stated in HPI. Physical Exam Vitals & Measurements T: 36.6 ???C(Oral) HR: 88(Peripheral) BP: 132/76 SpO2: 99% HT: 66 in HT: 167 cm WT: 212.525 lb WT: 96.4 kg BMI: 34.57 General:Well developed, well nourished, in no acute distress present with today, anxious Eyes:Bilateral conjunctiva wnl, no injection Ears:Bilateral TMs are wnl. No erythema or bulging. Bilateral external auditory canals are wnl no erythema or edema. Nose:mild nasal mucosa inflammation and edema no active drainage deformity or lesion Mouth:Moist mucous membranes. Uvula is midline. No acute tonsillar erythema, edema, or exudate. No signs of peritonsillar abscess. No trismus or drooling. Neck:no adenopathy Lungs:Lung sounds are clear bilaterally. No wheezing, rhonchi, or crackles on exam. Symmetrical expansion no signs of respiratory distress Cardio: S1, S2, regular rhythm. No murmurs gallops or rubs. Abdomen:not assessed Musculoskeletal:not assessed Extremity:not assessed Neurologic:not assessed Skin:not assessed Mental Status:Alert and oriented x3. Normal mood and affect Assessment/Plan Rapid Covid NEGATIVE. Patient requested rapid COVID-19 testing in regards to her clotting disorder history. Patient does currently take Lovenox follows with both oncology hematology as well as neurology. I discussed with patient that she most likely has a viral upper respiratory infection that she has had sick kids at home with similar cough and cold-like symptoms. Discussed the symptoms may last over a week to 2 weeks in duration the worsening of the first 3 to 5 days after that she should start to notice improvement. In regards to cough we discussed plain Robitussin. Patient did request albuterol inhaler. I discussed with patient that in regards to her history of palpitations that it can cause increase in heart rate. Discussed to contact her OB prior to starting that medication in regards to her complaint of tightness. Discussed otherwise fluids rest supportive management is the best plan and treatment of care at this time especially with being 5 weeks gestation. Patient and are both understanding and agreement to continue fluids rest and supportive management. 1. Viral URI with cough (J06.9: Acute upper respiratory infection, unspecified) Discussed exam and hx are consistent with viral illness. Advised of typical duration. Discussed antibiotics un (more content not included)... Normal [facility] Comment on above: Result Comment: Elec tronically Signed By: Aram QUINTEROS, Romulo Lynn\.br\Date and Time Signed: 09/07/24 10:46 EDT Sisi 09-02-2024 BEA Telephone (HEMASA) MADHU RENDON ([id number]) 1985 F Date Time Provider Department 09/02/24 NAGA JOHNSON During your visit today, we recorded the following information about you: Naga Johnson RN 09/02/2024 9:53 AM Signed Pt left a voicemail to inform she is approximately 5 weeks . She is asking any recommendations on med changes. Pt missed today's appt. Called and left VM to please call and schedule missed follow up MUNIRA. Fely: Please advise MARSHA Rush Vivek, MD 09/03/2024 12:52 PM Signed No change in meds. Naga Johnson RN 09/03/2024 1:25 PM Signed Pt notified and appt for September. She denies any further questions, needs or concerns at this time. Naga Johnson RN Allergies As of Date: 09/02/2024 Noted Allergy Reaction CIPROFLOXACIN 05/19/2019 14 - [...] GI Upset Crampy and gassy Date Reviewed: 08/26/2024 Reviewed by: Grant Negrete APRN.MEDICAL IMAGING TECHNICIAN - Fully Assessed Reason for Visit: Patient Update [1234] Prescriptions as of 09/03/2024 - enoxaparin (LOVENOX) 40 mg/0.4 mL INJECT 1 SYRINGE SUBCUTANEOUSLY EVERY 24 HOURS - famotidine (PEPCID) 20 mg tablet Take 1 tablet by mouth once daily. To take prior to infusion - metFORMIN ER (GLUCOPHAGE XR) 500 mg 24 hr tablet - multivitamin tablet Take 1 tablet by mouth once daily. 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] 08/01/2022 Antiphospholipid antibody syndrome (HCC) [D68.6*05/28/2024 Vitamin D deficiency [E55.9] 05/28/2024 Encounter Status:Closed by NAGA JOHNSON on 09/03/24 Normal [facility] 08-30-2024 HCG.beta subunit Qn 558 m[IU]/mL High 1-3 [facility] Comment on above: Result Comment: 'F N ON < 1 - 3' ' 0.2 - 1 WEEK = 5 TO 50' ' 1 - 2 WEEKS = 50 - 500' ' 2 - 3 WEEKS = 100 - 5000' ' 3 - 4 WEEKS = 500 - 73061' ' 4 - 5 WEEKS = 1000 - 65968' ' 5 - 6 WEEKS = 32336 - 324340' ' 6 - 8 WEEKS = 17787 - 002368' ' 8 - 12 WEEKS = 19460 - 470560' Performed By: #### 2 [id number] #### [facility] [address] [place] [address] [facility] Quant 08-27-2024 HCG.beta subunit Qn 188 m[IU]/mL High 1-3 [facility] Comment on above: Result Comment: 'F N ON < 1 - 3' ' 0.2 - 1 WEEK = 5 TO 50' ' 1 - 2 WEEKS = 50 - 500' ' 2 - 3 WEEKS = 100 - 5000' ' 3 - 4 WEEKS = 500 - 34104' ' 4 - 5 WEEKS = 1000 - 66726' ' 5 - 6 WEEKS = 40428 - 663569' ' 6 - 8 WEEKS = 46364 - 668584' ' 8 - 12 WEEKS = 22218 - 062055' Performed By: #### 2 [id number] #### [facility] [address] [place] [address] [facility] 08-26-2024 [facility] Telephone (HEMASA) MADHU RENDON ([id number]) 1985 F Date Time Provider Department 08/26/24 SALVADOR CALIX During your visit today, we recorded the following information about you: Serina Dawson MA 08/26/2024 3:42 PM Signed Patient has an appt on 08/27/24. Would you like labs, if so place orders. 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] Malaise and fatigue [R53.81, R53.83] Vitamin D deficiency [E55.9] Order(s):COMPLETE BLOOD COUNT AND DIFFERENTIAL [SQCBCDIF] Order #: [id number] FUTURE COMPREHENSIVE METABOLIC PANEL [SQCMP] Order #: [id number] FUTURE THYROID STIMULATING HORMONE [SQTSH] Order #: [id number] FUTURE IRON AND TIBC [SQIRON] Order #: [id number] FUTURE FERRITIN [SQFERR] Order #: [id number] FUTURE VITAMIN D 25 HYDROXY [SQVITD] Order #: [id number] FUTURE VITAMIN B12 [SQB12] Order #: [id number] FUTURE Prescriptions as of 08/26/2024 - enoxaparin (LOVENOX) 40 mg/0.4 mL INJECT 1 SYRINGE SUBCUTANEOUSLY EVERY 24 HOURS - famotidine (PEPCID) 20 mg tablet Take 1 tablet by mouth once daily. To take prior to infusion - metFORMIN ER (GLUCOPHAGE XR) 500 mg 24 hr tablet - multivitamin tablet Take 1 tablet by mouth once daily. 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] 08/01/2022 Antiphospholipid antibody syndrome (HCC) [D68.6*05/28/2024 Vitamin D deficiency [E55.9] 05/28/2024 Encounter Status:Closed by GRANT NEGRETE on 08/26/24 Normal [facility] 08-25-2024 HCG.beta subunit Qn 83 m[IU]/mL High 1-3 [facility] Comment on above: Result Comment: 'F N ON < 1 - 3' ' 0.2 - 1 WEEK = 5 TO 50' ' 1 - 2 WEEKS = 50 - 500' ' 2 - 3 WEEKS = 100 - 5000' ' 3 - 4 WEEKS = 500 - 35961' ' 4 - 5 WEEKS = 1000 - 91700' ' 5 - 6 WEEKS = 15192 - 189738' ' 6 - 8 WEEKS = 37102 - 953300' ' 8 - 12 WEEKS = 37615 - 018739' Performed By: #### 2 [id number] #### [facility] [address] [place] [address] [facility] 08-23-2024 HCG.beta subunit Qn 22 m[IU]/mL High 1-3 [facility] Comment on above: Result Comment: 'F N ON < 1 - 3' ' 0.2 - 1 WEEK = 5 TO 50' ' 1 - 2 WEEKS = 50 - 500' ' 2 - 3 WEEKS = 100 - 5000' ' 3 - 4 WEEKS = 500 - 34807' ' 4 - 5 WEEKS = 1000 - 07999' ' 5 - 6 WEEKS = 27064 - 422771' ' 6 - 8 WEEKS = 19935 - 879022' ' 8 - 12 WEEKS = 10092 - 780853' Performed By: #### 2 [id number] #### [facility] [address] [place] [address] CHEMISTRYOrdered By: SYSTEM SYSTEM on 08-23-2024 HCG.beta subunit Qn 22 m[IU]/mL High 1 - 3 mIU/mL [facility] Comment on above: Result Comment: 'F N ON < 1 - 3' ' 0.2 - 1 WEEK = 5 TO 50' ' 1 - 2 WEEKS = 50 - 500' ' 2 - 3 WEEKS = 100 - 5000' ' 3 - 4 WEEKS = 500 - 99601' ' 4 - 5 WEEKS = 1000 - 80157' ' 5 - 6 WEEKS = 33773 - 619486' ' 6 - 8 WEEKS = 14108 - 312389' ' 8 - 12 WEEKS = 03083 - 275281' TSH Qn 1.86 m[IU]/L Normal 0.34 - 5.60 mcIU/mL Remisol Chem TSHon 08-23-2024 TSH Qn 1.86 m[IU]/L Normal 0.34-5.60 [facility] Comment on above: Performed By: #### 2 [id number] #### [facility] [address] [place] [address] HCG ( test) Ql (U)o n 07-24-2024 Interpretation and review of laboratory results Normal [facility] Preg Test, Ur Negative Negative [facility] .Interpretation:on 5 HCV Ab IA Ql Comment Invalid Interpretation Code [facility] Comment on above: Result Comment: Not infected with HCV unless early or acute infection is suspected (which may be delayed in an immunocompromised individual), or other evidence exists to indicate HCV infection. Performed at: [address] [place] [id number] PhD Jd Montano Performed By: #### 2 [id number] #### [facility] [address] [place] [address] HCV Antibody RFX to Quant PC Doug 07-10-2024 HCV Ab IA Ql Non-Reactive Invalid Interpretation Code Non Reactive [facility] Comment on above: Result Comment: Perf ormed at: [address] [id number] PhD Jd Montano Performed By: #### 2 [id number] #### [facility] [address] [place] [address] HIV Screen 4th Generation wR fxon 07-10-2024 HIV 1+2 Ab+HIV1 p24 Ag IA Ql Non-Reactive Invalid Interpretation Code Non Reactive [facility] Comment on above: Result Comment: HIV- 1/HIV-2 antibodies and HIV-1 p24 antigen were NOT detected. There is no laboratory evidence of HIV infection. HIV Negative Performed at: [address] [id number] PhD Jd Montano Performed By: #### 9 [id number] #### [facility] [address] [place] [address] Hep Be Agon 07-10-2024 HBV e Ag IA Ql Negative Invalid Interpretation Code Negative [facility] Comment on above: Result Comment: Perf ormed at: [address] [id number] PhD Jd Montano Performed By: #### 2 [id number] #### [facility] [address] [place] [address] Hep Bs Agon 07-10-2024 HBV surface Ag IA Ql Negative Invalid Interpretation Code Negative [facility] Comment on above: Result Comment: Perf ormed at: [address] [id number] PhD Jd Montano Performed By: #### 2 [id number] #### [facility] [address] [place] [address] CHEMISTRYOrdered By: SYSTEM SYSTEM on 07-09-2024 Albumin [Mass/Vol] 5.0 g/dL Normal 3.3 - 5.0 gm/dL Remisol [facility] Albumin/Globulin [Mass ratio] 1.6 {ratio} Normal 1.1 - 2.2 [facility] ALP [Catalytic activity/Vol] 49 [iU]/d Normal 21 - 98 Int._Unit/ L Remisol Chem ALT No additional P-5'-P [Catalytic activity/Vol] 18 [iU]/d Normal 6 - 46 Int._Unit/ L [facility]isol [facility] Anion gap [Moles/Vol] 13 mmol/L Normal 6 - 16 mEq/L [facility] AST [Catalytic activity/Vol] 15 [iU]/d Normal 5 - 43 Int._Unit/ L [facility] Bilirubin [Mass/Vol] 0.4 mg/dL Normal 0.0 - 1 .1 mg/dL [facility] Calcium [Mass/Vol] 10.0 mg/dL Normal 8.9 - 11. 1 mg/dL [facility] Chloride [Moles/Vol] 100 mmol/L Low 101 - 1 11 mmol/L [facility] CO2 [Moles/Vol] 25 mmol/L Normal 21 - 31 mmol/L [facility] Creatinine [Mass/Vol] 0.7 mg/dL Normal 0.5 - 1.3 mg/dL [facility] eGFR 113 mL/min/1.73 m2 Normal >=59mL/mi n /1.73 m2 [facility] Globulin (S) [Mass/Vol] 3.1 g/dL Normal 1.4 - 4.0 gm/dL [facility] Glucose [Mass/Vol] 82 mg/dL Normal 55 - 199 mg/dL [facility] Potassium [Moles/Vol] 3.8 mmol/L Normal 3.5 - 5.3 mmol/L [facility] Protein [Mass/Vol] 8.1 g/dL High 6.0 - 7.8 gm/dL [facility] Sodium [Moles/Vol] 134 mmol/L Low 135 - 145 mmol/L [facility]isol [facility] Urea nitrogen [Mass/Vol] 7 mg/dL Normal 5 - 21 mg/dL [facility] Urea nitrogen/Creatinine [Mass ratio] 10 mg/mg Normal 10 - 20 [facility] CMPon 07-09-2024 Albumin [Mass/Vol] 5.0 g/dL Normal 3.3-5.0 [facility] Comment on above: Performed By: #### 2 [id number] #### [facility] [address] [place] [address] Albumin/Globulin (S) [Mass conc ratio] 1.6 Normal 1.1-2.2 [facility] Comment on above: Performed By: #### 2 [id number] #### [facility] [address] [place] [address] ALP [Catalytic activity/Vol] 49 Int._Unit/L Normal 21-98 [facility] Comment on above: Performed By: #### 2 [id number] #### [facility] [address] [place] [address] ALT No additional P-5'-P [Catalytic activity/Vol] 18 Int._Unit/L Normal 6-46 [facility] Comment on above: Performed By: #### 2 [id number] #### [facility] [address] [place] [address] Anion gap [Moles/Vol] 13 mmol/L Normal 6-16 [facility] Comment on above: Performed By: #### 2 [id number] #### [facility] [address] [place] [address] AST [Catalytic activity/Vol] 15 Int._Unit/L Normal 5-43 [facility] Comment on above: Performed By: #### 2 [id number] #### [facility] [address] [place] [address] Bilirubin [Mass/Vol] 0.4 mg/dL Normal 0.0-1.1 [facility] Comment on above: Performed By: #### 2 [id number] #### [facility] [address] [place] [address] Calcium [Mass/Vol] 10.0 mg/dL Normal 8.9-11.1 [facility] Comment on above: Performed By: #### 2 [id number] #### [facility] [address] [place] [address] Chloride [Moles/Vol] 100 mmol/L Low 101-111 [facility] Comment on above: Performed By: #### 2 [id number] #### [facility] [address] [place] [address] CO2 [Moles/Vol] 25 mmol/L Normal 21-31 [facility] Comment on above: Performed By: #### 2 [id number] #### [facility] [address] [place] [address] Creatinine [Mass/Vol] 0.7 mg/dL Normal 0.5-1.3 [facility] Comment on above: Performed By: #### 2 [id number] #### [facility] [address] [place] [address] Globulin (S) [Mass/Vol] 3.1 g/dL Normal 1.4-4.0 [facility] Comment on above: Performed By: #### 2 [id number] #### [facility] [address] [place] [address] Glucose [Mass/Vol] 82 mg/dL Normal 55-199 [facility] Comment on above: Performed By: #### 2 [id number] #### [facility] [address] [place] [address] Potassium [Moles/Vol] 3.8 mmol/L Normal 3.5-5.3 [facility] Comment on above: Performed By: #### 2 [id number] #### [facility] [address] [place] [address] Protein [Mass/Vol] 8.1 g/dL High 6.0-7.8 [facility] Comment on above: Performed By: #### 2 [id number] #### [facility] [address] [place] [address] Sodium [Moles/Vol] 134 mmol/L Low 135-145 [facility] Comment on above: Performed By: #### 2 [id number] #### [facility] [address] [place] [address] Urea nitrogen [Mass/Vol] 7 mg/dL Normal 5-21 [facility] Comment on above: Performed By: #### 2 [id number] #### [facility] [address] [place] [address] Urea nitrogen/Creatinine [Mass ratio] 10 No Units Normal 10-20 [facility] Comment on above: Performed By: #### 2 [id number] #### [facility] [address] [place] [address] eGFRon 07-09-2024 eGFR 113 mL/min/1.73 m2 Normal >=59 [facility] Comment on above: Performed By: #### 1 [id number] #### [facility] [address] [place] [address] Family Medicine Office/Clini c Noteon 07-08-2024 Family Medicine Office/Clinic Note Family Medicine Office/Clinic Note HPI Staff complaints of _ pt states her heart rate has been consistently dropping into the 40s and at night her HR resets , pt states had a miscarriage a back in April at 14 weeks pt states the hr issues has been going on before she was pregnate and while pregnate it was higher and now that she is not her hr rate is still dropping last time was on sunday and it 45- 60 pt thinks it could also be due to hormones and also when she is on her menses cycle pt did see the dentis today and was given epinephrine Onset: 6 moths Characteristics: fatigue, weak, sob, dizzy, OTC tried: History of Present Illness I have reviewed and discussed the HPI (staff) with the patient today. Information was verified and is correct. Additional information provided if needed. Pt of Dr Casas, reports to office today for acute visit with concern for intermittent low heart rate. States this has been ongoing since before her miscarriage in April-- for about 6 months. Past medical hx includes antiphospholipid syndrome, autoimmune hypothyroidism, CVA, NEETA, prediabetes, and elevated BP. She states the HR was normal during her but since the miscarriage in April she has noticed it dropping again. Occurs about once daily in the evening since she has started her period last week--. She reports that she felt very shaky and panicked along with some dizziness, BP was 100/68 and HR was around 48-50bpm on . HR returns to her normal when she wakes up in the mornings. She denies syncopal episodes or continued dizziness since original episode. She reports having holter monitor in 2018 and would like to do this again. She denies chest pain, shortness of breath, dizziness, heart palpitations, or syncope. Review of Systems PHQ Score Initial Depression Screen Score: 0 SCORE ROS negative unless otherwise stated in HPI. Physical Exam Vitals & Measurements HR: 83(Peripheral) RR: 16 BP: 122/80 SpO2: 99% HT: 66 in HT: 168 cm WT: 96.4 kg WT: 212.525 lb BMI: 34.16 PHYSICAL EXAM General: Well developed, well nourished, no apparent distress Head: Normocephalic, atraumatic Neck: No bruit, symmetric Lungs: Lungs clear to auscultation Cardio: Regular rate and rhythm with no murmur Pulses: Pulses present in all four extremities Extremities: No edema Mental Status: Alert and cooperative with appropriate mood and affect Assessment/Plan 1. Bradycardia (R00.1: Bradycardia, unspecified) Acute, intermittent, per pt report. Vitals wnl in office today. We will order metabolic panel, ECG, and holter for further evaluation. Pt aware of red flags/when to report for emergent medical evaluation. We discussed this in length today, and I advised her to report to ER if any symptomatic bradycardia does occur. Consider cardiology evaluation if this persists. She verbalized understanding. We will follow up with results and sooner if needed. Ordered: Comprehensive Metabolic Panel ECG 12 Lead Adult Holter Monitor 48 hr 2. BMI 34.0-34.9,adult (Z68.34: Body mass index [BMI] 34.0-34.9, adult) The standard range for ages 18 [...] subsequent visits. 3. Obesity (E66.9: Obesity, unspecified) Encourage healthy diet and lifestyle choices. Follow-up With When Contact Information Evans CASAS DO, FAAFP, CHRIS, PED [address] [facility], [place] [address]- Additional Instructions: Patient Education Bradycardia, Adult Problem List/Past Medical History Ongoing Acute bronchitis due to other specified organisms Antiphospholipid antibody with hypercoagulable state Antiphospholipid syndrome Autoimmune hypothyroidism Blood pressure elevated without history of HTN BMI 35.0-35.9,adult Cold intolerance COVID-19 vaccine dose declined Deviated septum Dry mouth Dysfunction of right eustachian tube Dyshidrotic eczema Elevated blood pressure reading Environmental allergies Facial paresthesia Fatigue GERD with esophagitis Gestational diabetes H/O: CVA H/O: hypothyroidism History [...] pain Right ovarian cyst Salivary gland swelling Sinusitis Snoring Systemic viral illness TMJ syndrome Weakness Well adult exam Historical Abdominal pain (more content not included)... Normal [facility] Comment on above: Result Comment: Elec tronically Signed By: Inez Banegas\.br\Date and Time Signed: 07/08/24 08:54 EDT Ambulatory Visit Summaryon 0 07-07-2024 Ambulatory Visit Summary Ambulatory Visit Summary MADHU RENDON :1985 Visit Date:07/07/2024 Ambulatory Visit Instructions Your Care Team Attending Physician - Inez Banegas Primary Care Physician - Evans CASAS DO, FAAFP This Is Your Medications List Contact prescribing physician if questions or concerns enoxaparin (Lovenox 40 mg/0.4 mL Injection) ergocalciferol (Vitamin D) famotidine (Pepcid 40 mg Tab) fluconazole (Diflucan 150 mg Tab) fluticasone nasal (Flonase 0.05 mg/inh [place]) levothyroxine (levothyroxine 25 mcg (0.025 mg) Tab) metformin (MetFORMIN (Eqv-Glucophage XR) 500 mg oral tablet, extended release) Procedures Performed Biopsy of breast (06/14/2013), Extraction of wisdom tooth (2006), endoscopy for ovarian cysts to drain. Discharge Vitals Heart Rate (Peripheral) 83 Respiratory Rate 16 Blood Pressure 122/80 Height 168 cm Height 66 in Weight 96.4 kg Weight 212.525 lb BMI 34.16 What to do next Scheduled Follow-Up Appointments Sunday. 2024 8:20 AM EDT With: Evans CASAS DO, FAAFP Where: [facility] [address], [place] [address]- You Need to Schedule the Following Appointments Follow Up with Evans CASAS DO, FAAFP, FAM, PED When: Where: [address], [place] [address]- Medications What How Much When Why Instructions Unchanged enoxaparin (Lovenox 40 mg/ 0.4 mL Injection) 40 Milligram Subcutaneous Every 24 hours Contact prescribing physician if questions or concerns Unchanged ergocalciferol (Vitamin D) 2,000 International unit By Mouth Every week Contact prescribing physician if questions or concerns Unchanged famotidine (Pepcid 40 mg Tab) 1 Tablets By Mouth Once a day (at bedtime) Contact prescribing physician if questions or concerns Unchanged fluconazole (Diflucan 150 mg Tab) 1 Tablets By Mouth Every 7 days Yeast infection Contact prescribing physician if questions or concerns Unchanged fluticasone nasal (Flonase 0.05 mg/ inh [place]) 2 Sprays Nasal Inhalation Every day each nostril Contact prescribing physician if questions or concerns Unchanged levothyroxine (levothyroxine 25 mcg (0.025 mg) Tab) 1 Tablets By Mouth Every day Dr. Celaya Contact prescribing physician if questions or concerns Unchanged metformin (MetFORMIN (Eqv-Glucophage XR) 500 mg oral tablet, extended release) 2 Tablets By Mouth Every day Contact prescribing physician if questions or concerns Allergies Milk Products (Illness) ciprofloxacin (Numbness and tingling of skin, Nausea) Problems Ongoing - Any problem that you are currently receiving treatment for. Acute bronchitis due to other specified organisms Antiphospholipid antibody with hypercoagulable state Antiphospholipid syndrome Autoimmune hypothyroidism Blood pressure elevated without history of HTN BMI 35.0-35.9,adult Cold intolerance COVID-19 vaccine dose declined Deviated septum Dry mouth Dysfunction of right eustachian tube Dyshidrotic eczema Elevated blood pressure reading Environmental allergies Facial paresthesia Fatigue GERD with esophagitis Gestational diabetes H/O: CVA H/O: hypothyroidism History [...] pain Right ovarian cyst Salivary gland swelling Sinusitis Snoring Systemic viral illness TMJ syndrome Weakness Well adult exam Historical - Any [...] Spontaneous miscarriage Suspected COVID-19 virus infection Vaginal alia Patient Survey You may receive a survey via text or e-mail asking about your office visit. Please share your experience with us by completing your survey. We appreciate your feedback and thank you for choosing us for your care. Normal [facility] BhCG Quanton 07-07-2024 HCG.beta subunit Qn 1 m[IU]/mL Normal 1-3 [facility] Comment on above: Result Comment: 'F N ON < 1 - 3' ' 0.2 - 1 WEEK = 5 TO 50' ' 1 - 2 WEEKS = 50 - 500' ' 2 - 3 WEEKS = 100 - 5000' ' 3 - 4 WEEKS = 500 - 44599' ' 4 - 5 WEEKS = 1000 - 29222' ' 5 - 6 WEEKS = 35376 - 611427' ' 6 - 8 WEEKS = 79982 - 411666' ' 8 - 12 WEEKS = 43917 - 354175' Performed By: #### 2 [id number] #### [facility] [address] [place] [address] MTHFR 2 Mutationson 07-08-19 25 MTHFR Interpretation See Note Normal [facility] Comment on above: Result Comment: Indication for testing: Determine genetic contribution to hyperhomocysteinemia. 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 This genotype may be associated with a mild, clinically insignificant, decrease in MTHFR enzyme activity. This result has been reviewed and approved by Marci Byrne M.D. Background Information: Methylenetetrahydrofolate Reductase (MTHFR) 2 Variants Characteristics: Variants in the MTHFR gene may reduce enzyme activity contributing to hyperhomocysteinemia. Although hyperhomocysteinemia was previously reported to be a risk factor for many conditions, especially venous thrombosis and cardiovascular disease, recent meta-analysis casts doubt on whether lifelong moderate homocysteine elevation has an effect on cardiovascular disease. The [employer] Practice Guidelines indicate that individuals with elevated homocysteine and two copies of the c.665C>T variant have an odds ratio of 1.27 for venous thromboembolism. Thus, they recommend MTHFR genotyping not be ordered as part of a routine evaluation for recurrent loss or thromobophilia due to questionable clinical significance. Incidence: The allele frequency of the c.665C>T variant is 0.35 in Caucasians, 0.5 in Hispanics, and 0.12 in Americans. Inheritance: Autosomal recessive; two copies of the c.665C>T variant may be a contributing factor to hyperhomocysteinemia. Variants Tested: c.665C>T(p.[id number]) and c.1286A>C(p.[id number]). (legacy names C677T and D6694I, respectively). Clinical Sensitivity: Undefined; hyperhomocysteinemia is caused by genetic, physiologic and environmental factors. MTHFR variants are only one contributing factor. Methodology: Polymerase chain reaction (PCR) and fluorescence monitoring. Analytical Sensitivity and Specificity: 99 percent. Limitations: Only two MTHFR gene variants (c.665C>T and c.1286A>C) are tested. Diagnostic errors can occur due to rare sequence variations. This test was developed and its performance characteristics determined by [employer]. It has not been cleared or approved by the [place] Food and Drug Administration. This test was performed in a CLIA certified laboratory and is intended for clinical purposes. Counseling and informed consent are recommended for genetic testing. Consent forms are available online. Performed By: [employer] [address] [place] [id number] Financial Systems Administrator: Yayo Moncada MD, PhD CLIA Number: [id number] MTHFR Mutation: [id number] Homozygous Normal [facility] MTHFR Mutation: C677T Negative Normal [facility] MTHFR PCR Specimen Whole Blood Normal [facility] Anti-nuclear Ab (NASEEM) Reflex on 07-04-2024 Anti-Nuclear Ab (NASEEM), IgG by ALEX Not detected Normal None [facility] Comment on above: Result Comment: If s uspicion of connective tissue disease is strong and NASEEM EIA is negative, consider testing for NASEEM by IFA ([id number]). No antibodies to Anti-Nuclear Antibodies (NASEEM) detected. The Extractable Nuclear Antigen Antibodies (MOTORCYCLE MECHANIC, Christianson, SSA 52, SSA 60, Scleroderma, Brianna-1 and SSB) and Double Stranded DNA (dsDNA) Antibody, IgG will not be performed. INTERPRETIVE INFORMATION: Anti-Nuclear Antibodies (NASEEM), IgG by ALEX Antinuclear Antibodies (NASEEM), IgG by ALEX: NASEEM specimens are screened using enzyme-linked immunosorbent assay (ALEX) methodology. All ALEX results reported as Detected are further tested by indirect fluorescent assay (IFA) using HEp-2 substrate with an IgG-specific conjugate. The NASEEM ALEX screen is designed to detect antibodies against dsDNA, histones, SS-A (Ro), SS-B (La), Christianson, Christianson/MOTORCYCLE MECHANIC, Scl-70, Brianna-1, centromeric proteins, other antigens extracted from the HEp-2 cell nucleus. NASEEM ALEX assays have been reported to have lower sensitivities than NASEEM IFA for systemic autoimmune rheumatic diseases (SARD). Negative results do not necessarily rule out SARD. Performed By: [employer] [address] [place] [id number] Financial Systems Administrator: Yayo Moncada MD, PhD CLIA Number: [id number] Brianna-1 (Histidyl-tRNA Syntheta se) Ab, IgGon 07-04-2024 Brianna-1 (Histidyl-tRNA Synthetase) Ab, IgG 0 AU/mL Normal 0-40 [facility] Comment on above: Result Comment: INTE RPRETIVE INFORMATION: Brianna-1 Antibody, IgG 29 AU/mL or less.........Negative 30-40 AU/mL..............Equivocal 41 AU/mL or greater......Positive Presence of Brianna-1 (antihistidyl transfer RNA [t-RNA] synthetase) antibody is associated with polymyositis and may also be seen in patients with dermatomyositis. Brianna-1 antibody is associated with pulmonary involvement (interstitial lung disease), Raynaud phenomenon, arthritis, and fire alarm mechanic's hands (implicated in antisynthetase syndrome). Performed By: [employer] [address] [place] [address] Financial Systems Administrator: Yayo Moncada MD, PhD CLIA Number: [id number] SSA and SSB Abs, IgGon 07-04 SSA 52 (Ro) (KELLEN) Ab, IgG 1 AU/mL Normal 0-40 [facility] Comment on above: Result Comment: INTE RPRETIVE INFORMATION: SSA-52 (Ro52) (KELLEN) Antibody, IgG 29 AU/mL or Less ............. Negative 30 - 40 AU/mL ................ Equivocal 41 AU/mL or Greater .......... Positive SSA-52 (Ro52) and/or SSA-60 (Ro60) antibodies are associated with a diagnosis of Sjogren syndrome, systemic lupus erythematosus (SLE), and systemic sclerosis. SSA-52 antibody overlaps significantly with the major SSc-related antibodies. SSA-52 (Ro52) antibody occurs frequently in patients with inflammatory myopathies, often in the presence of interstitial lung disease. SSB (La) (KELLEN) Ab, IgG 0 AU/mL Normal 0-40 [facility] Comment on above: Result Comment: INTE RPRETIVE INFORMATION: SSB (La) (KELLEN) Ab, IgG 29 AU/mL or Less ............. Negative 30 - 40 AU/mL ................ Equivocal 41 AU/mL or Greater .......... Positive SSB (La) antibody is seen in 50-60% of Sjogren syndrome cases and is specific if it is the only KELLEN antibody present. 15-25% of patients with systemic lupus erythematosus (SLE) and 5-10% of patients with progressive systemic sclerosis (PSS) also have this antibody. Performed By: [employer] [address] [place] [address] Financial Systems Administrator: Yayo Moncada MD, PhD CLIA Number: [id number] Cardiolipin Antibodies, IgG/ IgMon 07-03-2024 Cardiolipin Ab IgG 95 GPL Critically high <=14 M [facility] Comment on above: Result Comment: INTE RPRETIVE INFORMATION: Anti-Cardiolipin IgG Ab <=14 GPL: Negative 15-19 GPL: Indeterminate 20-80 GPL: Low to Moderately Positive 81 GPL or above: High Positive The persistent presence of IgG and/or IgM cardiolipin (CL) antibodies in moderate or high levels (greater than 40 GPL and/or greater than 40 MPL units) is a laboratory criterion for the diagnosis of antiphospholipid syndrome (APS). Persistence is defined as moderate or high levels of IgG and/or IgM CL antibodies detected in two or more specimens drawn at least 12 weeks apart (J Throm Haemost. 2006;4:295-306). Lower positive levels of IgG and/or IgM CL antibodies (above cutoff but less than 40 GPL and/or less than 40 MPL units) may occur in patients with the clinical symptoms of APS; therefore, the actual significance of these levels is undefined. Results should not be used alone for diagnosis and must be interpreted in light of APS-specific clinical manifestations and/or other criteria phospholipid antibody tests. Performed by [employer], [address] [place], [place] [id number] [email or web address], Zhang Bledsoe MD, Lab. Director CLIA Number: [id number] Cardiolipin Ab IgM <10 Normal <=12 [facility] [facility] Comment on above: Result Comment: INTE RPRETIVE INFORMATION: Anti-Cardiolipin IgM <=12 MPL: Negative 13-19 MPL: Indeterminate 20-80 MPL: Low to Moderately Positive 81 MPL or above: High Positive The persistent presence of IgG and/or IgM cardiolipin (CL) antibodies in moderate or high levels (greater than 40 GPL and/or greater than 40 MPL units) is a laboratory criterion for the diagnosis of antiphospholipid syndrome (APS). Persistence is defined as moderate or high levels of IgG and/or IgM CL antibodies detected in two or more specimens drawn at least 12 weeks apart (J Throm Haemost. 2006;4:295-306). Lower positive levels of IgG and/or IgM CL antibodies (above cutoff but less than 40 GPL and/or less than 40 MPL units) may occur in patients with the clinical symptoms of APS; therefore, the actual significance of these levels is undefined. Results should not be used alone for diagnosis and must be interpreted in light of APS-specific clinical manifestations and/or other criteria phospholipid antibody tests. Performed by [employer], [address] [place] [id number] www[email or web address], Zhang Bledsoe MD, Lab. Director CLIA Number: [id number] F-Actin (Smooth Muscle) Anti body, IgAon 07-03-2024 F-Actin Ab, IgA 1.8 Units Normal 0.0-24.9 [facility] [facility] Comment on above: Result Comment: INTE RPRETIVE INFORMATION: F-Actin (Smooth Muscle)Antibody, IgA 20.0 Units or less.....Negative 20.1 - 24.9 Units......Equivocal 25.0 Units or greater..Positive The presence of IgA antibodies against F-Actin in patients having positive serologic markers for celiac disease, such as antiendomysial, anti-transglutaminase, and/or anti-gliadin peptide IgA, indicates the presence of intestinal villus atrophy. Positive results should be confirmed with biopsy. Performed By: [employer] [address] [id number] Financial Systems Administrator: Yayo Moncada MD, PhD CLIA Number: [id number] dsDNA Ab, IgG by ELISAon dsDNA Ab, IgG by ALEX 4 IU Normal 0-24 [facility] Comment on above: Result Comment: INTE RPRETIVE INFORMATION: Double-Stranded DNA (dsDNA) Ab IgG ALEX 24 IU or less........Negative 25-30 IU.............Borderline Positive 30-60 IU.............Low Positive 60-200 IU............Positive 201 IU or greater....Strong Positive Positivity for anti-double stranded DNA (anti-dsDNA) IgG antibody is a diagnostic criterion of systemic lupus erythematosus (SLE). Specimens are initially screened by enzyme-linked immunosorbent assay (ALEX). If ordered as reflex ([id number]), positive ALEX results (>24 IU) will be reflexed to a highly specific IFA titer (Crithidia luciliae indirect fluorescent test [MAGEN]) for confirmation. Some patients with early or inactive SLE may be positive for anti-dsDNA IgG by ALEX but negative by MAGEN. If the patient is negative by MAGEN but positive by ALEX and clinical suspicion remains, consider antinuclear antibody (NASEEM) testing by IFA. Additional information and recommendations for testing may be found at [email or web address]. Performed by [employer], [address] [place] [address],[place] [id number] www[email or web address], Zhang Bledsoe MD, Lab. Director IA Number: [id number] C-Reactive Proteinon 025 CRP [Mass/Vol] mg/L Normal 0.0-5.0 [facility] Comment on above: Performed By: #### C RP #### [facility] [address] [place] [address] Sedimentation Rateon 025 Sedimentation Rate 18 mm Normal 0-20 [facility] Comment on above: Result Comment: ESR Units mm/Hr Performed By: #### E SR #### [facility] [address] [place] [address] Family Medicine Office/Clini c Noteon 06-30-2024 Family Medicine Office/Clinic Note Family Medicine Office/Clinic Note Chief Complaint C/O: Rt Facial numbness 1 wk ago. Vertigo, lost control of rt leg, weakness-daughter hit her mouth 2 days ago and the sensation returned. Mouth xray at dental office. Denies vision change, chest pain, sob, palalpatations. HPI Staff Lab 06/12/24 C/O: Rt Facial numbness 1 wk ago. Vertigo, lost control of rt leg, weakness-daughter hit her mouth 2 days ago and the sensation returned. Mouth xray at dental office. Denies vision change, chest pain, sob, palpatations History of Present Illness C/O: Rt Facial numbness 1 wk ago. Vertigo, lost control of rt leg, weakness-daughter hit her mouth 2 days ago and the sensation returned. Mouth xray at dental office. Denies vision change, chest pain, sob, palalpatations. Numbness R side of face that went away with massage that got worse with head butt by daughter Review of Systems PHQ Score Initial Depression [...] or noncontributory. Physical Exam Vitals & Measurements HR: 77(Peripheral) BP: 136/72 SpO2: 99% HT: 66 in HT: 168 cm WT: 97.2 kg WT: 214.289 lb BMI: 34.44 General: Well developed, well nourished, in no [...] and lower bilateral extremities Neurologic: Grossly normal CR NN 2-12 grossly intact as is speach: TM's immobile to valsalva Skin: No rashes, ulcerations, or suspicious lesions No facial numbness w fine touch. No masses of face appreciated Mental Status: Alert and oriented x3. Normal mood and affect Assessment/Plan 1. Facial paresthesia (R20.2: Paresthesia of skin) Neurology FU tomorrow w Dr Monge tomorrow: Pt refuses ED Pt back to normal: She desries no ED visit nor MRI's etc. 2. BMI 34.0-34.9,adult (Z68.34: Body mass index [BMI] 34.0-34.9, adult) The standard range for ages 18 [...] Morbid (severe) obesity due to excess calories) diet/exercise BMI 25 4. Antiphospholipid syndrome (D68.61: Antiphospholipid syndrome) Dr Damon [facility] following: Pt to contact him. Lovonox 40mg po q day, he desired 80mg po q day and Neurologist wanted 80mg po bid, she had more hemorraging with higher doses and more bleeding w menstration 5. 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 GERD with esophagitis (K21.00: Gastro-esophageal reflux disease with esophagitis, without bleeding) Orders: famotidine, 40 mg = 1 tab(s), Oral, Once a day (at bedtime), # 90 tab(s), Refills(s) 4, Pharmacy: [facility] 1985, 168, cm, 06/30/24 8:36:00 EST, Height/Length Dosing, 97.2, kg, 06/30/24 8:36:00 EST, Weight Dosing Total time spent preparing the chart, conducting of the encounter with the patient and family and time spent documenting, reviewing, and ordering tests was 25 minutes. Follow-up With When Contact Information Evans CASAS DO, FAAFP, CHRIS, PED In 2 months [address], [place] [address] ([phone] (more content not included)... Normal [facility] Comment on above: Result Comment: Elec tronically Signed By: Evans CASAS DO, FAAFP\.br\Date and Time Signed: 06/30/24 09:24 EST RECURRENT VAGINITIS (HTRX)on 06-25-2024 ATOPOBIUM VAGINAE 0 [facility] ATOPOBIUM VAGINAE Not detected [facility] BVAB 2,3 (BACTERIAL VAGINOSIS ASSOCIATED BACTERIA 2, 3); MOBILUNCUS SPP 0 [facility] BVAB 2,3 (BACTERIAL VAGINOSIS ASSOCIATED BACTERIA 2, 3); MOBILUNCUS SPP Not detected [facility] ALIA ALBICANS, PARAPSILOSIS, TROPICALIS 0 [facility] ALIA ALBICANS, PARAPSILOSIS, TROPICALIS Not detected [facility] ALIA GLABRATA 0 [facility] ALIA GLABRATA Not detected [facility] ALIA KRUSEI 0 [facility] ALIA KRUSEI Not detected [facility] CHLAMYDIA TRACHOMATIS 0 [facility] CHLAMYDIA TRACHOMATIS Not detected [facility] GARDNERELLA VAGINALIS 0 [facility] GARDNERELLA VAGINALIS Not detected [facility] MEGASPHAERA (TYPES 1, 2) 0 [facility] MEGASPHAERA (TYPES 1, 2) Not detected [facility] MYCOPLASMA GENITALIUM 0 [facility] MYCOPLASMA GENITALIUM Not detected [facility] NEISSERIA GONORRHOEAE 0 [facility] NEISSERIA GONORRHOEAE Not detected [facility] TRICHOMONAS VAGINALIS 0 [facility] TRICHOMONAS VAGINALIS Not detected [facility] Urinalysis macro (dipstick) panel (U)on 06-23-2024 Bilirubin, UA Negative Negative - 4(70) +++ mg/dL [facility] Blood, UA Negative Negative - 50 Max/mcL [facility] Clarity, UA Clear [facility] Color, UA Yellow [facility] Glucose, UA Negative Negative - 2000(110) ++++ mg/dL [facility] Interpretation and review of laboratory results Normal [facility] Ketones, UA Negative Negative - 160(16) ++++ mg/dL [facility] Leukocytes, UA Negative Negative - 500+++ John/mcL [facility] Nitrite, UA Negative Negative - Positive [facility] pH, UA 7 5 - 9 [facility] Healthcare Protein, UA Negative Negative - 1999(20) ++++ mg/dL [facility] Spec Grav, UA 1.01 1 - 1.03 [facility] Urobilinogen, UA 0.2 0.2 - 12 mg/dL [facility] Ambulatory Visit Summaryon 0 06-19-2024 Ambulatory Visit Summary Ambulatory Visit Summary MADHU RENDON :1985 Visit Date:06/19/2024 Ambulatory Visit Instructions Your Diagnosis Sinusitis, Sinusitis Yeast infection Your Care Team Attending Physician - KEVEN YEBOAH, MANDI Primary Care Physician - Evans CASAS DO, FAAFP This Is Your Medications List azithromycin (Zithromax 250 mg Tab) fluconazole (Diflucan 150 mg Tab) Contact prescribing physician if questions or concerns enoxaparin (Lovenox 40 mg/0.4 mL Injection) ergocalciferol (Vitamin D) fluticasone nasal (Flonase 0.05 mg/inh [place]) levothyroxine (levothyroxine 25 mcg (0.025 mg) Tab) metformin (MetFORMIN (Eqv-Glucophage XR) 500 mg oral tablet, extended release) Procedures Performed Biopsy of breast (06/14/2013), Extraction of wisdom tooth (2006), endoscopy for ovarian cysts to drain. Discharge Vitals Heart Rate (Peripheral) 74 Blood Pressure 126/72 Weight 98.4 kg Weight 216.935 lb What to do next Scheduled Follow-Up Appointments Sunday 2:20 PM EDT With: Evans CASAS DO, FAAFP Where: [facility] [address] [place] [address], [place] [address]- Medications What How Much When Why Instructions New azithromycin (Zithromax 250 mg Tab) 1 Packets By Mouth As Directed Sinusitis Duration: 5 Days Refills: 1 as directed on package labeling Pickup at [facility] 1985 New fluconazole (Diflucan 150 mg Tab) 1 Tablets By Mouth Every 7 days Yeast infection Refills: 1 Pickup at [facility] 1985 Unchanged enoxaparin (Lovenox 40 mg/ 0.4 mL Injection) 40 Milligram Subcutaneous Every 24 hours Contact prescribing physician if questions or concerns Unchanged ergocalciferol (Vitamin D) 2,000 International unit By Mouth Every week Contact prescribing physician if questions or concerns Unchanged fluticasone nasal (Flonase 0.05 mg/ inh [place]) 2 Sprays Nasal Inhalation Every day each nostril Contact prescribing physician if questions or concerns Unchanged levothyroxine (levothyroxine 25 mcg (0.025 mg) Tab) 1 Tablets By Mouth Every day Dr. Celaya Contact prescribing physician if questions or concerns Unchanged metformin (MetFORMIN (Eqv-Glucophage XR) 500 mg oral tablet, extended release) 2 Tablets By Mouth Every day Contact prescribing physician if questions or concerns Pharmacy Information [facility] 1986: [address] [place], [place] [id number] [phone] Allergies Milk Products (Illness) ciprofloxacin (Numbness and tingling of skin, Nausea) Problems Ongoing - Any problem that you are currently receiving treatment for. Acute bronchitis due to other specified organisms Antiphospholipid antibody with hypercoagulable state Antiphospholipid syndrome Autoimmune hypothyroidism Blood pressure elevated without history of HTN [...] pain Right ovarian cyst Salivary gland swelling Sinusitis Snoring Systemic viral illness TMJ syndrome Weakness Well adult exam Historical - Any [...] Spontaneous miscarriage Suspected COVID-19 virus infection Vaginal alia Patient Survey You may receive a survey via text or e-mail asking about your office visit. Please share your experience with us by completing your survey. We appreciate your feedback and thank you for choosing us for your care. [facility] Medicine Office/Clini c Noteon 06-19-2024 Family Medicine Office/Clinic Note Family Medicine Office/Clinic Note Chief Complaint Sinus pressure HPI Staff complaints of sinus pressure on right side of face, has a history of CVA notes numbness on right side of face Onset: 2-3 weeks OTC tried: tylenol History of Present Illness Madhu is a 38 year old female who presents for an acute visit. She has a very extensive health history. Today she is complaining of right head pain and right sinus pressure. She normally sees Dr Casas and she couldn't get into see him. She is seeing neurology - Dr Monge - and I instructed her to talk to him about the possibility of trigeminal neuralgia. She is having right sided facial pain and numbness that has been chalked up to TMJ and right eustachian tube dysfunction. I am going to treat her for a sinus infection today and have her return in 1-2 weeks if no improvement. She was also instructed to get an eye examination to check for IO pressure. Staff HPI reviewed and accurate. Review of Systems PHQ Score Initial Depression Screen Score: 0 SCORE Physical Exam Vitals & Measurements HR: 74(Peripheral) BP: 126/72 SpO2: 100% WT: 98.4 kg WT: 216.935 lb General: alert, no acute distress ENMT: TM's clear, oral mucosa moist, no pharyngeal erythema or exudate Cardiovascular: regular rate and rhythm, normal peripheral perfusion Respiratory: Lungs CTA, respirations non labored Extremities: no deformity, no trauma Neurological: oriented x 4, LOC appropriate for age, CN II-XII intact, motor strength equal & normal bilaterally, sensation equal & normal bilaterally, speech normal Assessment/Plan 1. Sinusitis, (J32.9: Chronic sinusitis, unspecified) z-pack Sinusitis Ordered: azithromycin, = 1 packet(s), Oral, As Directed, as directed on package labeling, X 5 day(s), # 6 tab(s), Refills(s) 1, Pharmacy: [facility] 1985, 168, cm, 06/09/24 14:03:00 EST, Height/Length Dosing, 98.4, kg, 06/19/24 16:19:00 EST, Weight Dosing Yeast infection (B37.9: Candidiasis, unspecified) Ordered: fluconazole, 150 mg = 1 tab(s), Oral, q7day, # 4 tab(s), Refills(s) 1, Pharmacy: [facility] 1985, 168, cm, 06/09/24 14:03:00 EST, Height/Length Dosing, 98.4, kg, 06/19/24 16:19:00 EST, Weight Dosing Follow-up No qualifying data available Problem List/Past Medical History Ongoing Acute bronchitis due to other specified organisms Antiphospholipid antibody with hypercoagulable state Antiphospholipid syndrome Autoimmune hypothyroidism Blood pressure elevated without history of HTN [...] pain Right ovarian cyst Salivary gland swelling Sinusitis Snoring Systemic viral illness TMJ syndrome Weakness Well adult exam Historical Abdominal pain Acute URI Anxiety and depression Bloody stools BMI 37.0-37.9, adult Class 1 obesity with body mass index (BMI) of 34.0 to 34.9 in adult Dizziness Dysuria Family history of anemia Family history of ovarian cyst SOB (shortness of breath) Spontaneous miscarriage Suspected COVID-19 virus infection Vaginal alia Procedure/Surgical History Biopsy of breast (06/14/2013), Extraction of wisdom tooth (2006), endoscopy for ovarian cysts to drain. Medications Diflucan 150 mg Tab, 150 mg= 1 tab(s), Oral, q7day, 1 refills Flonase 0.05 mg/inh [place], 2 spray(s), Nasal, Daily, 11 refills levothyroxine 25 mcg (0.025 mg) Tab, 25 mcg= 1 tab(s), Oral, Daily Lovenox 40 mg/0.4 mL Injection, 40 mg, SubCutaneous, q24hr MetFORMIN (Eqv-Glucophage XR) 500 mg oral tablet, extended release, 1000 mg= 2 tab(s), Oral, Daily Vitamin D, 2000 International_Unit, Oral, qWeek Zithromax 250 mg Tab, 1 packet(s), Oral, As Directed, 1 refills Allergies Milk Products (Illness) ciprofloxacin (Numbness and tingling of skin, Nausea) Social History Alcohol - Denies Alcohol Use, 08/05/2017 Never., 06/09/2024 Substance Abuse - Denies Substance Abuse, 11/02/2016 Never., 06/09/2024 Tobacco - Denies Tobacco Use, 11/02/2016 Never (less than 100 in lifetime) Tobacco Use:., 06/19/2024 Family History Diabetes mellitus type 2: Father. Stroke: Father. Immunizations Vaccine Date Status Comments influenza virus vaccine, inactivated - Not Given Patient Refuses influe (more content not included)... Normal [facility] Comment on above: Result Comment: Elec tronically Signed By: KEVEN YEBOAH, MANDI\.br\Date and Time Signed: 06/19/24 16:37 EST CBC w/ Auto Diffon 5 Basophils/100 WBC (Bld) 0.3 % Normal 0.0-2.0 [facility] Comment on above: Performed By: #### 2 [id number] #### [facility] [address] [place] [address] Basophils/Leukocytes Auto (Bld) [Pure # fraction] 0.0 E9/L Normal 0.0-0.2 [facility] Comment on above: Performed By: #### 2 [id number] #### [facility] [address] [place] [address] Eosinophils (Bld) [#/Vol] 0.0 E9/L Normal 0.0-0.5 [facility] Comment on above: Performed By: #### 2 167132 #### [facility] [address] [place] [address] Eosinophils/100 WBC (Bld) 0.3 % Normal 0.0-8.0 [facility] Comment on above: Performed By: #### 2 [id number] #### [facility] [address] [place] [address] Erythrocyte distribution width (RBC) [Ratio] 14.0 % Normal 10.9-14.2 [facility] Comment on above: Performed By: #### 2 729117 #### [facility] [address] [place] [address] Hematocrit (Bld) [Volume fraction] 40.9 % Normal 34.0-46.0 [facility] Comment on above: Performed By: #### 2 145013 #### [facility] [address] [place] [address] Hemoglobin (Bld) [Mass/Vol] 13.9 g/dL Normal 12.0-16.0 [facility] Comment on above: Performed By: #### 2 019964 #### [facility] [address] [place] [address] Lymphocytes (Bld) [#/Vol] 2.8 E9/L Normal 1.0-4.0 [facility] Comment on above: Performed By: #### 2 759526 #### [facility] [address] [place] [address] Lymphocytes/100 WBC (Bld) 24.6 % Normal 14.0-50.0 [facility] Comment on above: Performed By: #### 2 564673 #### [facility] [address] [place] [address] MCH (RBC) [Entitic mass] 30.7 pg Normal 27.0-34.0 [facility] Comment on above: Performed By: #### 2 189040 #### [facility] [address] [place] [address] MCHC (RBC) [Mass/Vol] 33.9 g/dL Normal 31.4-36.0 [facility] Comment on above: Performed By: #### 2 671243 #### [facility] [address] [place] [address] MCV (RBC) [Entitic vol] 90.6 fL Normal 80.0-100.0 [facility] Comment on above: Performed By: #### 2 840070 #### [facility] [address] [place] [address] Monocytes (Bld) [#/Vol] 0.6 E9/L Normal 0.2-1.0 [facility] Comment on above: Performed By: #### 2 621250 #### [facility] [address] [place] [address] Neutrophils (Bld) [#/Vol] 8.0 E9/L High 2.0-7.5 [facility] Comment on above: Performed By: #### 2 633483 #### [facility] [address] [place] [address] Neutrophils/100 WBC (Bld) 69.6 % Normal 36.0-75.0 [facility] Comment on above: Performed By: #### 2 033253 #### [facility] [address] [place] [address] Platelet 388.0 E9/L Normal 150.0-500. 0 [facility] Comment on above: Performed By: #### 2 755171 #### [facility] [address] [place] [address] Platelet mean volume (Bld) [Entitic vol] 8.2 fL Normal 6.4-10.8 [facility] Comment on above: Performed By: #### 2 085777 #### [facility] [address] [place] [address] RBC (Bld) [#/Vol] 4.5 E12/L Normal 4.3-5.9 [facility] Comment on above: Performed By: #### 2 245951 #### [facility] [address] [place] [address] WBC corrected for nucl RBC Auto (Bld) [#/Vol] 11.5 E9/L High 4.0-11.0 [facility] Comment on above: Performed By: #### 2 461813 #### [facility] [address] [place] [address] HEMATOLOGYOrdered By: SYSTEM SYSTEM on 06-12-2024 Basophils/100 WBC (Bld) 0.3 % Normal 0.0 - 2.0 % Remisol Heme Basophils/Leukocytes Auto (Bld) [Pure # fraction] 0.0 E9/L Normal 0.0 - 0.2 E9/L Rem[facility] Heme Eosinophils (Bld) [#/Vol] 0.0 E9/L Normal 0.0 - 0.5 E9/L Rem[facility] Heme Eosinophils/100 WBC (Bld) 0.3 % Normal 0.0 - 8.0 % Remisol Heme Erythrocyte distribution width (RBC) [Ratio] 14.0 % Normal 10.9 - 14.2 % Rem[facility] Heme Hematocrit (Bld) [Volume fraction] 40.9 % Normal 34.0 - 46.0 % Remisol Heme Hemoglobin (Bld) [Mass/Vol] 13.9 g/dL Normal 12.0 - 16.0 gm/dL [facility] Heme Lymphocytes (Bld) [#/Vol] 2.8 E9/L Normal 1.0 - 4.0 E9/L [facility]e Lymphocytes/100 WBC (Bld) 24.6 % Normal 14.0 - 50.0 % Remisol Heme MCH (RBC) [Entitic mass] 30.7 pg Normal 27.0 - 34.0 pg Remisol Heme MCHC (RBC) [Mass/Vol] 33.9 g/dL Normal 31.4 - 36.0 gm/dL Rem[facility] Heme MCV (RBC) [Entitic vol] 90.6 fL Normal 80.0 - 100.0 fL Rem[facility] Heme Monocytes (Bld) [#/Vol] 0.6 E9/L Normal 0.2 - 1.0 E9/L [facility] Heme Monocytes/100 WBC (Bld) 5.2 % Normal 4.0 - 14.0 % Rem[facility] Heme Neutrophils (Bld) [#/Vol] 8.0 E9/L High 2.0 - 7.5 E9/L [facility] Heme Neutrophils/100 WBC (Bld) 69.6 % Normal 36.0 - 75.0 % Remisol Heme Platelet 388.0 E9/L Normal 150.0 - 500.0 E9/L [facility] Heme Platelet mean volume (Bld) [Entitic vol] 8.2 fL Normal 6.4 - 10.8 fL Rem[facility] Heme RBC (Bld) [#/Vol] 4.5 E12/L Normal 4.3 - 5.9 E12/L [facility] Heme WBC corrected for nucl RBC Auto (Bld) [#/Vol] 11.5 E9/L High 4.0 - 11.0 E9/L Rem[facility] Heme Ambulatory Visit Summaryon 0 06-09-2024 Ambulatory Visit Summary Ambulatory Visit Summary MADHU RENDON :1985 Visit Date:06/09/2024 Ambulatory Visit Instructions Your Diagnosis Antiphospholipid antibody with hypercoagulable state H/O: CVA Gestational diabetes BMI 35.0-35.9,adult Morbid obesity Your Care Team Attending Physician - Evans CASAS DO, FAAFP Primary Care Physician - Evans CASAS DO, FAAFP This Is Your Medications List fluticasone nasal (Flonase 0.05 mg/inh [place]) Contact prescribing physician if questions or concerns enoxaparin (Lovenox 40 mg/0.4 mL Injection) ergocalciferol (Vitamin D) levothyroxine (levothyroxine 25 mcg (0.025 mg) Tab) metformin (MetFORMIN (Eqv-Glucophage XR) 500 mg oral tablet, extended release) Procedures Performed Biopsy of breast (06/14/2013), Extraction of wisdom tooth (2006), endoscopy for ovarian cysts to drain. Discharge Vitals Heart Rate (Peripheral) 78 Blood Pressure 178/72 Height 168 cm Height 66 in Weight 99.1 kg Weight 218.478 lb BMI 35.11 What to do next Scheduled Follow-Up Appointments Sunday 2:20 PM EDT With: Evans CASAS DO, FAAFP Where: [facility] [address], [place] [address]- Medications What How Much When Instructions New fluticasone nasal (Flonase 0.05 mg/ inh [place]) 2 Sprays Nasal Inhalation Every day Refills: 11 each nostril Pickup at [facility] #[id number] Unchanged enoxaparin (Lovenox 40 mg/ 0.4 mL Injection) 40 Milligram Subcutaneous Every 24 hours Contact prescribing physician if questions or concerns Unchanged ergocalciferol (Vitamin D) 2,000 International unit By Mouth Every week Contact prescribing physician if questions or concerns Unchanged levothyroxine (levothyroxine 25 mcg (0.025 mg) Tab) 1 Tablets By Mouth Every day Dr. Celaya Contact prescribing physician if questions or concerns Unchanged metformin (MetFORMIN (Eqv-Glucophage XR) 500 mg oral tablet, extended release) 2 Tablets By Mouth Every day Contact prescribing physician if questions or concerns Pharmacy Information [facility]/pharm[facility] #[id number]: [address] [place], [place] [phone] Allergies Milk Products (Illness) ciprofloxacin (Numbness and tingling of skin, Nausea) Problems Ongoing - Any problem that you are currently receiving treatment for. Acute bronchitis due to other specified organisms Antiphospholipid antibody with hypercoagulable state Antiphospholipid syndrome Blood pressure elevated without history [...] Spontaneous miscarriage Suspected COVID-19 virus infection Vaginal alia Patient Survey You may receive a survey via text or e-mail asking about your office visit. Please share your experience with us by completing your survey. We appreciate your feedback and thank you for choosing us for your care. Normal [facility] 06-09-2024 HCG.beta subunit Qn 2 m[IU]/mL Normal 1-3 [facility] Comment on above: Result Comment: 'F N ON < 1 - 3' ' 0.2 - 1 WEEK = 5 TO 50' ' 1 - 2 WEEKS = 50 - 500' ' 2 - 3 WEEKS = 100 - 5000' ' 3 - 4 WEEKS = 500 - 10982' ' 4 - 5 WEEKS = 1000 - 71911' ' 5 - 6 WEEKS = 22645 - 654656' ' 6 - 8 WEEKS = 83091 - 704353' ' 8 - 12 WEEKS = 35297 - 153652' Performed By: #### 2 [id number] #### [facility] [address] [place] [address] CHEMISTRYOrdered By: SYSTEM SYSTEM on 06-09-2024 TSH Qn 1.97 m[IU]/L Normal 0.34 - 5.60 mcIU/mL Remisol Chem Family Medicine Office/Clini c Noteon 06-09-2024 Family Medicine Office/Clinic Note Family Medicine Office/Clinic Note Chief Complaint Concerns: Jaw Pain-x1wk Vision light sensitive-blurry, facial numbness. Dentist-TMJ, reflux. Rt neck/jaw/ear pain(drainage). Denies FISHER. no contacts/glasses. APS in rt eye. Lost baby post , symptoms started post . HPI Staff Concerns: Jaw Pain-x1wk Vision light sensitive-blurry, facial numbness, tightness and swelling. Dentist-TMJ, reflux. Rt neck/jaw/ear pain(drainage). Denies FISHER. no contacts/glasses. APS in rt eye. Lost baby post , symptoms started post . History of Present Illness TMJ per dentist and ENT, grinds teeth at night No F/C Tmax 99.0 TM temp Breast fed x 20mo. Wants to conceive this month Drainage from inside ear, not outside Moved from [place] Review of Systems PHQ Score Initial Depression Screen Score: 2 SCORE ROS - Provider Constitutional: no fever, [...] or noncontributory. Physical Exam Vitals & Measurements HR: 78(Peripheral) BP: 178/72 SpO2: 99% HT: 66 in HT: 168 cm WT: 99.1 kg WT: 218.478 lb BMI: 35.11 General: alert, no acute distress, playful, normal hydration, nonill appearing. ENMT: TM's clear, oral mucosa moist, no pharyngeal erythema or exudate TM's normal to inspection however are immobile with Valsalva maneuver: temporomandibular joint opens and closes normally with intermittent mild crepitus, no subluxation appreciated nor dislocation. No increased warmth nor abnormality nor apparent pain with opening and closing of mouth Cardiovascular: regular rate and rhythm, normal peripheral perfusion Respiratory: Lungs CTA, respirations non labored Extremities: no deformity, no trauma Neurological: oriented x 4, LOC appropriate for ageappropriate for age Assessment/Plan 1. Antiphospholipid antibody with hypercoagulable state (D68.61: Antiphospholipid syndrome) [facility] [place] Department of hematology/oncology following and treating with Lovenox, please see their consultation 05/28/2024. Treats with Lovenox 40 mg subcu every 24 hours 2. H/O: CVA (Z86.79: Personal history of other diseases of the circulatory system) Please see #1. 3. Gestational diabetes (O24.419: Gestational diabetes mellitus in , unspecified control) [employer], [facility] following. Metformin XR 500 mg tabs 2 p.o. daily 4. TMJ syndrome (M26.629: Arthralgia of temporomandibular joint, unspecified side) Mouthguard per dentist and ENT, I concur, she will initiate 5. 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 daily, last TSH she reports was 2.29 6. BMI 35.0-35.9,adult (Z68.35: Body mass index [BMI] [...] management will be followed at subsequent visits. 7. Morbid obesity (E66.01: Morbid (severe) obesity due to excess calories) Diet and exercise a BMI goal of 25 Orders: fluticasone nasal, 2 spray(s), Nasal, Daily, 16 gram, Refill(s) 11, each nostril, [id number], 168, cm, 06/09/24 14:03:00 EST, Height/Length Dosing, 99.1, kg, 06/09/24 14:03:00 EST, Weight Dosing Total time spent preparing the chart, conducting of the encounter with the patient and family and time spent documenting, reviewing, and ordering tests was _ Review of Prior External Notes and Results:The following documents and/or results were reviewed on this visit which are external to my provider group and/or outside of my specialty: Labs: _, _, _, _, _, _ Radiology: _, _, _, _, _, _, Records Reviewed: Consultations, _, _, _, _, _, Other Testing: Follow-up With When Contact Information Evans CASAS DO, FAAFP, CHRIS, PED In 6 months [address], [place] [address]- [phone] (more content not included)... Normal [facility] Comment on above: Result Comment: Elec tronically Signed By: KAPLE DO FAAFP, Evans A\.br\Date and Time Signed: 06/09/24 14:24 EST [facility] 06-09-2024 TSH Qn 1.97 m[IU]/L Normal 0.34-5.60 [facility] Comment on above: Performed By: #### 2 003074 #### [facility] [address] [place] [address] [facility] 05-31-2024 HCG.beta subunit Qn 6 m[IU]/mL High 1-3 [facility] Comment on above: Result Comment: 'F N ON < 1 - 3' ' 0.2 - 1 WEEK = 5 TO 50' ' 1 - 2 WEEKS = 50 - 500' ' 2 - 3 WEEKS = 100 - 5000' ' 3 - 4 WEEKS = 500 - 61871' ' 4 - 5 WEEKS = 1000 - 82337' ' 5 - 6 WEEKS = 71100 - 952946' ' 6 - 8 WEEKS = 35879 - 303332' ' 8 - 12 WEEKS = 86508 - 550480' Performed By: #### 2 261668 #### [facility] [address] [place] [address] 25(OH)D3 [facility] 2024 25-hydroxyvitamin D3 [Mass/Vol] 27.8 ng/mL Low 31.0-80.[address] [facility] Comment on above: Order Comment: Speci men Type: BLOOD SPECIMENOrdering Facility: [facility] Address: [address] [place] [address] Result Comment: Clas sification of 25 [place] Vitamin D status: Deficiency/Insufficiency: < or = 30 ng/ml. Sufficiency/Optimal Levels: 31-80 ng/mL Toxicity: > 100 ng/mL. Test performed by chemiluminescent immunoassay. Performed By: #### 1 989-3 ####[facility] LABCLIA [id number] [facility] [id number] [place] [address] [place] CBC W Auto Differential pane l (Bld)on 05-28-2024 Basophils (Bld) [#/Vol] 0.03 10*3/uL Normal <0.[address] [facility] Comment on above: Order Comment: Speci men Type: BLOOD SPECIMENOrdering Facility: [facility] Address: [address] [place] [address] Performed By: #### 5 7021-8 ####[facility] LABCLIA [id number] [place] [address] Basophils/100 WBC (Bld) 0.4 % Normal [facility] Comment on above: Order Comment: Speci men Type: BLOOD SPECIMENOrdering Facility: [facility] Address: [address] [place] [address] Performed By: #### 5 7021-8 ####[facility] LABCLIA [id number] [place] [address] Differential cell count method Nom (Bld) Auto Normal [facility] Comment on above: Order Comment: Speci men Type: BLOOD SPECIMENOrdering Facility: [facility] Address: [address] [place] [address] Performed By: #### 5 7021-8 ####[facility] LABCLIA [id number] [place] [address] Eosinophils (Bld) [#/Vol] 0.08 10*3/uL Normal <0.[address] [facility] Comment on above: Order Comment: Speci men Type: BLOOD SPECIMENOrdering Facility: [facility] Address: [address] [place] [address] Performed By: #### 5 7021-8 ####[facility] LABCLIA [id number] [place] [address] Eosinophils/100 WBC (Bld) 0.9 % Normal [facility] Comment on above: Order Comment: Speci men Type: BLOOD SPECIMENOrdering Facility: [facility] Address: [address] [place] [address] Performed By: #### 5 7021-8 ####[facility] LABCLIA [id number] [place] [address] Erythrocyte distribution width (RBC) [Ratio] 13.8 % Normal 11.5-15.[address] [facility] Comment on above: Order Comment: Speci men Type: BLOOD SPECIMENOrdering Facility: [facility] Address: [address] [place] [address] Performed By: #### 5 7021-8 ####[facility] LABCLIA [id number] [place] [address] Hematocrit (Bld) [Volume fraction] 34.0 % Low 36.0-46.[address] [facility] Comment on above: Order Comment: Speci men Type: BLOOD SPECIMENOrdering Facility: [facility] Address: [address] [place] [address] Performed By: #### 5 7021-8 ####[facility] LABCLIA [id number] [place] [address] Hemoglobin (Bld) [Mass/Vol] 11.5 g/dL Normal 11.5-15.[address] [facility] Comment on above: Order Comment: Speci men Type: BLOOD SPECIMENOrdering Facility: [facility] Address: [address] [place] [address] Performed By: #### 5 7021-8 ####[facility] LABCLIA [id number] [place] [address] Immature granulocytes (Bld) [#/Vol] 0.03 10*3/uL Normal <0.[address] [facility] Comment on above: Order Comment: Speci men Type: BLOOD SPECIMENOrdering Facility: [facility] Address: [address] [place] [address] Performed By: #### 5 7021-8 ####[facility] LABCLIA [id number] [place] [address] Immature granulocytes/100 WBC (Bld) 0.4 % Normal [facility] Comment on above: Order Comment: Speci men Type: BLOOD SPECIMENOrdering Facility: [facility] Address: [address] [place] [address] Performed By: #### 5 7021-8 ####[facility] LABCLIA [id number] [place] [address] Lymphocytes (Bld) [#/Vol] 2.86 10*3/uL Normal 1.00-4.[address] [facility] Comment on above: Order Comment: Speci men Type: BLOOD SPECIMENOrdering Facility: [facility] Address: [address] [place] [address] Performed By: #### 5 7021-8 ####[facility] LABCLIA [id number] [place] [address] Lymphocytes/100 WBC (Bld) 33.4 % Normal [facility] Comment on above: Order Comment: Speci men Type: BLOOD SPECIMENOrdering Facility: [facility] Address: [address] [place] [address] Performed By: #### 5 7021-8 ####[facility] LABCLIA [id number] [place] [address] MCH (RBC) [Entitic mass] 30.8 pg Normal 26.0-34.[address] [facility] Comment on above: Order Comment: Speci men Type: BLOOD SPECIMENOrdering Facility: [facility] Address: [address] [place] [address] Performed By: #### 5 7021-8 ####[facility] LABCLIA [id number] [place] [address] MCHC (RBC) [Mass/Vol] 33.8 g/dL Normal 30.5-36.0 [facility] Comment on above: Order Comment: Speci men Type: BLOOD SPECIMENOrdering Facility: [facility] Address: [address] [place] [address] Performed By: #### 5 7021-8 ####[facility] LABCLIA [id number] [place] [address] MCV (RBC) [Entitic vol] 91.2 fL Normal 80.0-100.[address] [facility] Comment on above: Order Comment: Speci men Type: BLOOD SPECIMENOrdering Facility: [facility] Address: [address] [place] [address] Performed By: #### 5 7021-8 ####[facility] LABCLIA [id number] [place] [address] Monocytes (Bld) [#/Vol] 0.66 10*3/uL Normal <0.[address] [facility] Comment on above: Order Comment: Speci men Type: BLOOD SPECIMENOrdering Facility: [facility] Address: [address] [place] [address] Performed By: #### 5 7021-8 ####[facility] LABCLIA [id number] [place] [address] Monocytes/100 WBC (Bld) 7.7 % Normal [facility] Comment on above: Order Comment: Speci men Type: BLOOD SPECIMENOrdering Facility: [facility] Address: [address] [place] [address] Performed By: #### 5 7021-8 ####[facility] LABCLIA [id number] [place] [address] Neutrophils (Bld) [#/Vol] 4.90 10*3/uL Normal 1.45-7.[address] [facility] Comment on above: Order Comment: Speci men Type: BLOOD SPECIMENOrdering Facility: [facility] Address: [address] [place] [address] Performed By: #### 5 7021-8 ####[facility] LABCLIA [id number] [place] [address] Neutrophils/100 WBC (Bld) 57.2 % Normal [facility] Comment on above: Order Comment: Speci men Type: BLOOD SPECIMENOrdering Facility: [facility] Address: [address] [place] [address] Performed By: #### 5 7021-8 ####[facility] LABCLIA [id number] [place] [address] Nucleated RBC (Bld) [#/Vol] 10*3/uL Normal <0.[address] [facility] Comment on above: Order Comment: Speci men Type: BLOOD SPECIMENOrdering Facility: [facility] Address: [address] [place] [address] Performed By: #### 5 7021-8 ####[facility] LABCLIA [id number] [place] [address] Nucleated RBC/100 WBC (Bld) [Ratio] 0.0 /[address] [facility] Comment on above: Order Comment: Speci men Type: BLOOD SPECIMENOrdering Facility: [facility] Address: [address] [place] [address] Performed By: #### 5 7021-8 ####[facility] LABCLIA [id number] [place] [address] Platelet mean volume (Bld) [Entitic vol] 9.6 fL Normal 9.0-12.[address] [facility] Comment on above: Order Comment: Speci men Type: BLOOD SPECIMENOrdering Facility: [facility] Address: [address] [place] [address] Performed By: #### 5 7021-8 ####[facility] LABCLIA [id number] [place] [address] Platelets (Bld) [#/Vol] 345 10*3/uL Normal 150-[address] [facility] Comment on above: Order Comment: Speci men Type: BLOOD SPECIMENOrdering Facility: [facility] Address: [address] [place] [address] Performed By: #### 5 7021-8 ####[facility] LABCLIA [id number] [place] [address] RBC (Bld) [#/Vol] 3.73 10*6/uL Low 3.90-5.20 [facility] Comment on above: Order Comment: Speci men Type: BLOOD SPECIMENOrdering Facility: [facility] Address: Formerly [facility] [place] [place] [address] Performed By: #### 5 7021-8 ####[facility] LABIA [id number] [place] [address] WBC (Bld) [#/Vol] 8.56 10*3/uL Normal 3.70-11.00 [facility] Comment on above: Order Comment: Speci men Type: BLOOD SPECIMENOrdering Facility: [facility] Address: [address] [place] [address] Performed By: #### 5 7021-8 ####[facility] LABCLIA [id number] [place] [address] CNOVSPon 05-28-2024 CNOVSP Visit (SP) Office ([facility]) JUSTICE,KATIE ([id number]) 1985 F Date Time Provider Department 05/28/24 1:00 PM SALVADOR CALIX During your visit today, we recorded the following information about you: Temperature Pulse Respiration Blood pressure 97.6 degrees 72/minute 16/minute 123/83 Weight Height 98.5 kg 1.677 m Salvador Calix MD 05/29/2024 9:13 AM Signed NAME: Madhu Rendon CLINIC NO.: [id number] DATE OF SERVICE: May 28, 2024 (Levon) Some elements in this clinic note that are critical to medical decision making have been carefully reviewed and included from a prior clinic note dated: January 02, 2024 (Levon) Additional Clinicians involved in Madhu Rendon's care: Jorge Mcwilliams, Humaira Gaviria, Dr. Boothe CC: hypercoag state. ASSESSMENT: 38 year old woman presents with a prior history of CVA in 2016 and an antiphospholipid antibody that was identified much later in 2018. These were found in [place], [place]. I don't have access to these [...] a target-like rash shortly before presenting to [facility] in 2015 with headaches and was diagnosed with a CVA. - She saw Dr. Baugh but no relevant conclusion was made. She remains on Lovenox - still breast feeding. No clinical need to recheck her APL Ab or Cardiolipin Ab's as results will not change our treatment plan despite her recent miscarriage. Placental evaluation is still pending as of April 2024. PLAN: Triage to call iron results Continue Lovenox - patient prefers 40 mg (rather than rec 80mg) Encouraged her to reconsider Take B12 supplement in the form of a sublingual tablet RTC in 3 months Labs same day or 2-7 days prior - ____ HPI: Updated Visit, May 28, 2024: Madhu returns today for a follow up. She unfortunately had a miscarriage, at 14 weeks, earlier this month. She required surgical intervention to remove the placenta - held Lovenox for 2 days prior, has resumed now. She endorses fatigue, is improving now. Today's Hgb is slightly lower than her normal but is within normal range. Iron studies are pending. She had one instance of prolonged bleeding following a lab draw. I encouraged her to continue supplemental B12 at home. Updated Visit, January 02, 2024: Madhu returns [...] soon. When she had a stroke in [place], she had symptoms up to a month [...] and she is having trouble losing weight. (more content not included)... Normal [facility] Sisi 05-28-2024 BEA Telephone ([facility]) MADHU RENDON ([id number]) 1985 F Date Time Provider Department 05/28/24 SALVADOR CALIX During your visit today, we recorded the following information about you: Taylor Escudero 05/28/2024 1:45 PM Signed Triage to call with iron results Naga Johnson, MARSHA 05/30/2024 8:23 AM Signed Fely: Iron studies normal, any recommendations for Vit D? Please advise Salvador Calix MD 06/02/2024 12:31 PM Signed Vitamin D OTC 5000 international unit(s) daily please. Naga Johnson RN 06/02/2024 12:42 PM Signed Pt aware and agreeable to plan of care. She will obtain OTC Vit D, as recommended. Appts verified. Naga Johnson RN Allergies As of Date: 05/28/2024 Noted Allergy Reaction CIPROFLOXACIN 05/19/2019 14 - [...] GI Upset Crampy and gassy Date Reviewed: 05/28/2024 Reviewed by: Valery Dunham MA - Fully Assessed Reason for Visit: Iron results [Other] Prescriptions as of 06/02/2024 - enoxaparin (LOVENOX) 40 mg/0.4 mL INJECT 1 SYRINGE SUBCUTANEOUSLY EVERY 24 HOURS - famotidine (PEPCID) 20 mg tablet Take 1 tablet by mouth once daily. To take prior to infusion - metFORMIN ER (GLUCOPHAGE XR) 500 mg 24 hr tablet - multivitamin tablet Take 1 tablet by mouth once daily. 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 Comprehensive metabolic 2000 panelon 05-28-2024 Albumin [Mass/Vol] 4.4 g/dL Normal 3.9-4.9 [facility] Comment on above: Order Comment: Speci men Type: BLOOD SPECIMENOrdering Facility: [facility] Address: [address] [place] [address] Performed By: #### 2 4323-8 ####[facility] LABCLIA [id number] [place] [address] ALP [Catalytic activity/Vol] 59 U/L Normal 34-[address] [facility] Comment on above: Order Comment: Speci men Type: BLOOD SPECIMENOrdering Facility: [facility] Address: [address] [place] [address] Performed By: #### 2 4323-8 ####[facility] LABCLIA [id number] [place] [address] ALT [Catalytic activity/Vol] 12 U/L Normal 7-[address] [facility] Comment on above: Order Comment: Speci men Type: BLOOD SPECIMENOrdering Facility: [facility] Address: [address] [place] [address] Performed By: #### 2 4323-8 ####[facility] LABCLIA [id number] [place] [address] Anion gap [Moles/Vol] 10 mmol/L Normal 8-15 [facility] Comment on above: Order Comment: Speci men Type: BLOOD SPECIMENOrdering Facility: [facility] Address: [address] [place] [address] Performed By: #### 2 4323-8 ####[facility] LABCLIA [id number] [place] [address] AST [Catalytic activity/Vol] 11 U/L Low 13-[address] [facility] Comment on above: Order Comment: Speci men Type: BLOOD SPECIMENOrdering Facility: [facility] Address: [address] [place] [address] Performed By: #### 2 4323-8 ####[facility] LABCLIA [id number] [place] [address] Bilirubin [Mass/Vol] 0.2 mg/dL Normal 0.2-1.3 [facility] Comment on above: Order Comment: Speci men Type: BLOOD SPECIMENOrdering Facility: [facility] Address: [address] [place] [address] Performed By: #### 2 4323-8 ####[facility] LABCLIA [id number] [place] [address] Calcium [Mass/Vol] 9.7 mg/dL Normal 8.5-10.2 [facility] Comment on above: Order Comment: Speci men Type: BLOOD SPECIMENOrdering Facility: [facility] Address: [address] [place] [address] Performed By: #### 2 4323-8 ####[facility] LABCLIA [id number] [place] [address] Chloride [Moles/Vol] 99 mmol/L Normal 98-107 [facility] Comment on above: Order Comment: Speci men Type: BLOOD SPECIMENOrdering Facility: [facility] Address: [address] [place] [address] Performed By: #### 2 4323-8 ####[facility] LABCLIA [id number] [place] [address] CO2 [Moles/Vol] 25 mmol/L Normal 22-[address] [facility] Comment on above: Order Comment: Speci men Type: BLOOD SPECIMENOrdering Facility: [facility] Address: [address] [place] [address] Performed By: #### 2 4323-8 ####[facility] LABCLIA [id number] [place] [address] Creatinine [Mass/Vol] 0.71 mg/dL Normal 0.58-0.96 [facility] Comment on above: Order Comment: Speci men Type: BLOOD SPECIMENOrdering Facility: [facility] Address: [address] [place] [address] Performed By: #### 2 4323-8 ####[facility] LABCLIA [id number] [place] [address] Creatinine and Glomerular filtration rate.predicted panel (S/P/Bld) 112 mL/min/1.73m??? Normal >=[address] [facility] Comment on above: Order Comment: Speci men Type: BLOOD SPECIMENOrdering Facility: [facility] Address: [address] [place] [address] Result Comment: Hawa mated Glomerular Filtration Rate [...] accurately reflect actual GFR. Performed By: #### 2 4323-8 ####[facility] LABCLIA [id number] [place] [address] Glucose [Mass/Vol] 79 mg/dL Normal 74-99 [facility] Comment on above: Order Comment: Speci men Type: BLOOD SPECIMENOrdering Facility: [facility] Address: [address] [place], [place] [address] Result Comment: The [place] Diabetes Association (ADA) provides guidance for cutoff [...] Standards of Medical Care in Diabetes 2016, [place] [employer] Association. Diabetes Care. 2016.39(Suppl 1). Performed By: #### 2 4323-8 ####[facility] LABCLIA [id number] [place] [address] Potassium [Moles/Vol] 4.0 mmol/L Normal 3.7-5.1 [facility] Comment on above: Order Comment: Speci men Type: BLOOD SPECIMENOrdering Facility: [facility] Address: [address] [place], [place] [address] Performed By: #### 2 4323-8 ####[facility] LABCLIA [id number] [place] [address] Protein [Mass/Vol] 7.1 g/dL Normal 6.3-8.0 [facility] Comment on above: Order Comment: Speci men Type: BLOOD SPECIMENOrdering Facility: [facility] Address: [address] [place] [address] Performed By: #### 2 4323-8 ####[facility] LABCLIA [id number] [place] [address] Sodium [Moles/Vol] 134 mmol/L Low 136-144 [facility] Comment on above: Order Comment: Speci men Type: BLOOD SPECIMENOrdering Facility: [facility] Address: [address] [place] [address] Performed By: #### 2 4323-8 ####[facility] LABCLIA [id number] [place] [address] Urea nitrogen [Mass/Vol] 8 mg/dL Normal 7-[address] [facility] Comment on above: Order Comment: Speci men Type: BLOOD SPECIMENOrdering Facility: [facility] Address: [address] [place] [address] Performed By: #### 2 4323-8 ####[facility] LABCLIA [id number] [place] [address] Ferritin SerPl-mCncon 2024 Ferritin [Mass/Vol] 73.8 ng/mL Normal 14.7-205.1 [facility] Comment on above: Order Comment: Speci men Type: BLOOD SPECIMENOrdering Facility: [facility] Address: [address] [place] [address] Performed By: #### 5 0190-8, 2276-4, 3016-3 ####[facility] LABCLIA [id number] [place] [address] [place] Folate SerPl-mCncon 05-28-19 25 Folate [Mass/Vol] ng/mL Normal >4.7 [facility] Comment on above: Order Comment: Speci men Type: BLOOD SPECIMENOrdering Facility: [facility] Address: [address] [place] [address] Result Comment: A re sult of > 20 ng/mL is not necessarily indicative of a pathologic or treatable condition: it reflects a limitation of the test methodology. Assay reference range: 4.8 to 24.2 ng/mL. Suitable for detection of folate deficiency. Reference: Folate III (Folate III) [package insert V 1.0 Tristanian]. [facility], [place], [place]: February 2015. Performed By: #### 2 132-9, 2284-8 ####[facility] LABCLIA [id number] [address] [address] [place] Iron and Iron binding capaci ty panelon 05-28-2024 Iron [Mass/Vol] 68 ug/dL Normal 41-[address] [facility] Comment on above: Order Comment: Speci men Type: BLOOD SPECIMENOrdering Facility: [facility] Address: [address] [place] [address] Performed By: #### 5 0190-8, 2276-4, 3016-3 ####[facility] LABIA [id number] [place] [address] [place] Iron binding capacity [Mass/Vol] 367 ug/dL Normal 232-[address] [facility] Comment on above: Order Comment: Speci men Type: BLOOD SPECIMENOrdering Facility: [facility] Address: [address] [place] [address] Performed By: #### 5 0190-8, 6-4, 3016-3 ####[facility] [id number] [place] [address] [place] Iron/TIBC [Molar ratio] 18.5 % Normal 15.0-57.[address] [facility] Comment on above: Order Comment: Speci men Type: BLOOD SPECIMENOrdering Facility: [facility] Address: [address] [place] [address] Performed By: #### 5 0190-8, 2276-4, 3016-3 ####[facility] [id number] [place] [id number] [place] TSH SerPl-aCncon 05-28-2024 TSH Qn 2.940 m[IU]/L Normal 0.270-4.[address] [facility] Comment on above: Order Comment: Speci men Type: BLOOD SPECIMENOrdering Facility: [facility] Address: [address] [place] [address] Result Comment: If t he patient is , TSH reference range varies by gestational period: First Trimester (weeks 9-12): 0.180-2.990 mIU/L Second Trimester: 0.110-3.980 mIU/L Third Trimester: 0.480-4.710 mIU/L Danny Varela et al. A Practical Approach for the Verifications and Determination of Site- and Trimester-Specific Reference Intervals for Thyroid Function tests in . Thyroid, 2019:29:3:412-420. Saeed E, et al. 2017 Guidelines of the [place] Thyroid Association for the Diagnosis and Management of Thyroid Disease during and the . Thyroid, 2017:27:3:315-389. Performed By: #### 5 0190-8, 2276-4, 3016-3 ####[facility] LABCLIA [id number] [place] [address] [place] Vit B[facility] 025 Cobalamin (Vitamin B12) [Mass/Vol] 487 pg/mL Normal 232-[address] [facility] Comment on above: Order Comment: Speci men Type: BLOOD SPECIMENOrdering Facility: [facility] Address: [address] [place] [address] Performed By: #### 2 132-9, 2284-8 ####[facility] LABIA [id number] [place] [address] [place] BhCG Quanton 05-17-2024 HCG.beta subunit Qn 101 m[IU]/mL High 1-3 [facility] Comment on above: Result Comment: 'F N ON < 1 - 3' ' 0.2 - 1 WEEK = 5 TO 50' ' 1 - 2 WEEKS = 50 - 500' ' 2 - 3 WEEKS = 100 - 5000' ' 3 - 4 WEEKS = 500 - 05276' ' 4 - 5 WEEKS = 1000 - 22117' ' 5 - 6 WEEKS = 77476 - 851687' ' 6 - 8 WEEKS = 76078 - 529233' ' 8 - 12 WEEKS = 23384 - 736634' Performed By: #### 2 174045 #### [facility] [address] [place] [address] Sisi 05-14-2024 CNPN Telephone ([facility]) JUSTICE,KATIE ([id number]) 1985 F Date Time Provider Department 05/14/24 NAGA JOHNSON HEMASA During your visit today, we recorded the following information about you: Naga Johnson RN 05/14/2024 10:19 AM Signed Pt called to inform she had a miscarriage, Sunday (05/10/24) Asking if any additional blood work was needed from out standpoint. Pt aware we will be checking her CBC for any signs of anemia and her iron studies for deficiency. 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 She denies any further questions needs or concerns at this time. Naga Johnson RN Fely: FYI Allergies As of Date: 05/14/2024 Noted Allergy Reaction CIPROFLOXACIN 05/19/2019 14 - [...] GI Upset Crampy and gassy Date Reviewed: 04/28/2024 Reviewed by: Grant Negrete APRN.MEDICAL IMAGING TECHNICIAN - Fully Assessed Reason for Visit: Patient Update [1234] Prescriptions as of 05/14/2024 - enoxaparin (LOVENOX) 40 mg/0.4 mL INJECT 1 SYRINGE SUBCUTANEOUSLY EVERY 24 HOURS - famotidine (PEPCID) 20 mg tablet Take 1 tablet by mouth once daily. To take prior to infusion - metFORMIN ER (GLUCOPHAGE XR) 500 mg 24 hr tablet - multivitamin tablet Take 1 tablet by mouth once daily. 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 ALL CBC WITH AUTO DIFFon BASOPHILS ABSOLUTE AUTO 0 [facility] Basophils/100 WBC (Bld) 0.2 % 0.2 - 2.0 % [facility] Eosinophils/100 WBC (Bld) 0.7 % Low 0.9 - 7.0 % [facility] Erythrocyte distribution width (RBC) [Ratio] 13 % 11.0 - 15.0 % [facility] Hematocrit (Bld) [Volume fraction] 35.6 % Low 36.0 - 48.0 % [facility] Hemoglobin (Bld) [Mass/Vol] 12.3 g/dL 12.0 - 16.0 g/dL [facility] IMMATURE GRANULOCYTES ABS AUTO 0.04 High [facility] Immature granulocytes/100 WBC (Bld) 0.4 % 0.0 - 0.5 % [facility] Interpretation and review of laboratory results Abnormal [facility] LYMPHOCYTES ABSOLUTE AUTO 2.5 [facility] Lymphocytes/100 WBC (Bld) 26.1 % 20.5 - 60.0 % [facility] MCH (RBC) [Entitic mass] 31 pg 26.7 - 34.0 pg [facility] MCHC (RBC) [Mass/Vol] 34.6 g/dL 29.9 - 35.2 g/dL [facility] MCV (RBC) [Entitic vol] 89.7 fL 81.0 - 99.0 fL [facility] MONOCYTES ABSOLUTE AUTO 0.6 [facility] Monocytes/100 WBC (Bld) 6 % 1.7 - 12.0 % [facility] NEUTROPHILS ABSOLUTE AUTO 6.3 [facility] Neutrophils/100 WBC (Bld) 66.6 % 43.0 - 75.0 % [facility] Platelet mean volume (Bld) [Entitic vol] 9.9 fL 9.5 - 13.5 fL [facility] TBH EO # 0.1 [facility] PLT 315 [facility] RBC 3.97 Low [facility] WBC 9.4 [facility] Omar 05-10-2024 L ------- Specimen: [id number] Received: 05/12/24120 Status: BALDOMERO Andrade Num: [id number] Spec Type: Surgical Subm Dr: Wilton Herrmann Tissues: A Placenta - Other than 3rd Trimester (14 WK PLACENTA) Procedures: HE/3, Gross/Micro L4 Age/ Patient Sex Location Account Attending Physician Madhu Rendon 38/F LABELL [id number] Wilton Herrmann SPEC NUM: [id number] RECD: 05/12/24-1209 STATUS: BALDOMERO ANDRADE NUM: [id number] AMARILYS: 05/10/24- SUBM DR: Wilton Herrmann ENTERED: 05/12/24-[address] [facility] [address]: Ti,Lab SPEC TYPE: Surgical DEPT: JIM CAMP ENTERED BY: [id number] RECV BY: [id number] ORDERED: HE/3, Gross/Micro L4 ORDERED: HE/3, Gross/Micro L4 Pathological Diagnosis Placenta, With: Umbilical Cord: Not identified. Membranes: Unremarkable. Placenta: Mature Chorionic Villi, Consistent With Third Trimester Placenta. No Parenchymal Lesions Are Identified. Clinical Information Spontaneous vaginal delivery of 14-week demise, G7, P4, complication of decelerations, risk: Antiphospholipid syndrome, stroke, hemorrhage with delivery, on Lovenox, anemia Gross Description Part A is received in formalin labeled with the patients name and date of : Single MEMBRANES: Placenta Sac Rupture (cm from margin): Indeterminate, 95% disrupted Color: Blue-ochoa Other Characteristics: No Insertion Site: 95% marginal, 5% disrupted CORD: No umbilical cord is received Specimen: [id number] Received: 05/12/24 Status: BALDOMERO Andrade Num: [id number] Spec Type: Surgical Subm Dr: Wilton Herrmann Tissues: A Placenta - Other than 3rd Trimester (14 WK PLACENTA) Procedures: DEION/3, Dann/Rah L4 Patient: Madhu Rendon [id number] (Continued) Specimen: [id number] Received: 05/12/24 (Continued) Gross Description (Continued) Signed (signature on file) Vivi Hill MD 05/13/24 1605 Specimen: [id number] Received: 05/12/24 Status: BALDOMERO Andrade Num: [id number] Spec Type: Surgical Subm Dr: Wilton Herrmann Tissues: A Placenta - Other than 3rd Trimester (14 WK PLACENTA) Procedures: HE/3, Gross/Micro L4 Patient: Madhu Rendon [id number] (Continued) Specimen: [id number] Received: 05/12/24-6563 (Continued) Gross Description (Continued) GENERAL: Trimmed Weight (grams): 29.8 g Complete: Indeterminate, the entire maternal floor displays roughened irregular cotyledons Size 1 x Size 2 x Size 3 (cm): 9 x 5 x 1 cm Accessory Lobe(s): No PLACENTAL DISK: Color of Surface: Blue-ochoa Sub-amniotic Cyst: No Amnion Nodosum: No Subchorionic Fibrin: No Appearance of Cut Surface: The entirety of the maternal disc displays pale cut surfaces Maternal floor: Unremarkable Retroplacental hematoma: No Comments: Also within the container are approximately 200 cc of red-brown, clotted, hemorrhagic material, 9 x 8 x 2 cm in aggregate. The cut surfaces are congested, dull and uniform. Cassettes: A1 Rolled membrane A2-A3 Three Knife Trimmer sections of placenta (3, , BS25-17 A) ABBY . CPT Codes 16345 Specimen: [id number] Received: 05/12/24-1209 Status: BALDOMERO Colealexa Num: [id number] Spec Type: Surgical Subm Dr: Wilton Herrmann Tissues: A Placenta - Other than 3rd Trimester (14 WK PLACENTA) Procedures: HE/3, Gross/Micro L4 Patient: Madhu Rendon [id number] (Continued) Signed (signature on file) Vivi Hill MD 05/13/24 1605 Normal [facility] US OB TRANSVAGINALon 025 US OB TRANSVAGINAL TITLE OF EXAM: OB Ultrasound: REASON FOR EXAM: Unable to obtain FHR. COMPARISON: None. TECHNIQUE: Grayscale and M-mode Doppler imaging is performed. Measurements: CRL: 7.6 cm GA for sonogram: 13.7 wk (12.6-14.7) Cervix Length: 4.1 cm KLAUDIA: 11/06/2024 Anatomy Observed: Gestational Sac: Visualized Pole: Visualized Cardiac Activity: Not visualized Uterus: Normal Uterine Position: Anteverted Anteflexed Right Ovary: Not visualized Left Ovary: Not visualized Cervical Length: 4.1 cm Comments: pole measuring 13 w 6 d with no cardiac activity noted. Dr. Herrmann notified at time of scan. IMPRESSION: Single intrauterine gestation estimated at 13.7 weeks. However, no cardiac activity is detected or demonstrated. Referring clinician was notified directly of this important finding by the performing technologist at the time of the exam. Dictated and transcribed 05/06/24/dpd This report has been electronically signed and approved by the interpreting radiologist. Normal Not Available Comment on above: Order Comment: US OB VIABILITY PLEASE PERFORM TRANSVAGINAL ULTRASOUND IF INDICATED Patient's last menstrual period was 01/29/2024. Urinalysis macro (dipstick) panel (U)on 05-06-2024 Bilirubin, UA Negative Negative - 4(70) +++ mg/dL [facility] Blood, UA Negative Negative - 50 Max/mcL [facility] Clarity, UA Clear [facility] Color, UA Yellow [facility] Glucose, UA Negative Negative - 2000(110) ++++ mg/dL [facility] Interpretation and review of laboratory results Normal [facility] Ketones, UA Negative Negative - 160(16) ++++ mg/dL [facility] Leukocytes, UA Negative Negative - 500+++ John/mcL [facility] Nitrite, UA Negative Negative - Positive [facility] pH, UA 6 5 - 9 [facility] Protein, UA Negative Negative - 2000(20) ++++ mg/dL [facility] Spec Grav, UA 1.01 1 - 1.03 [facility] Urobilinogen, UA 0.2 0.2 - 12 mg/dL [facility] BOX TESTon 04-12-2024 BOX TEST SENT OUT Y [facility] BOX1 [employer] [facility] BOX2 04/12/24 [facility]OX [facility]H DRUG SCREEN RAPID (URINE )on 04-12-2024 AMPHETAMINE SCREEN URINE Negative NEGATIVE [facility] BARBITURATES SCREEN URINE Negative NEGATIVE [facility] BENZODIAZEPINES SCREEN URINE Negative NEGATIVE [facility] BUPRENORPHINE SCREEN URINE Negative NEGATIVE [facility] Comment on above: DRUG CLASS TEST SYST [...] 300 ng/mL CANNABINOID SCREEN URINE Negative NEGATIVE [facility] COCAINE SCREEN URINE Negative NEGATIVE [facility] METHADONE SCREEN URINE Negative NEGATIVE [facility] METHAMPHETAMINES SCREEN URINE Negative NEGATIVE [facility] OPIATE SCREEN URINE Negative NEGATIVE [facility] OXYCODONE SCREEN URINE Negative NEGATIVE [facility] PHENCYCLIDINE SCREEN URINE Negative NEGATIVE [facility] TRICYCLIC ANTIDEPRESSANT URINE Negative NEGATIVE [facility] HCG ( test) Ql (U)o n 04-04-2024 Interpretation and review of laboratory results Abnormal [facility] Preg Test, Ur Positive Negative [facility] Urinalysis macro (dipstick) panel (U)on 04-04-2024 Bilirubin, UA Negative Negative - 4(70) +++ mg/dL [facility] Blood, UA Negative Negative - 50 Max/mcL [facility] Clarity, UA Clear [facility] Color, UA Yellow [facility] Glucose, UA Negative Negative - 2000(110) ++++ mg/dL [facility] Interpretation and review of laboratory results Normal [facility] Ketones, UA Negative Negative - 160(16) ++++ mg/dL [facility] Leukocytes, UA Negative Negative - 500+++ John/mcL [facility] Nitrite, UA Negative Negative - Positive [facility] pH, UA 5.5 5 - 9 [facility] Protein, UA Negative Negative - 2000(20) ++++ mg/dL [facility] Spec Grav, UA 1.02 1 - 1.03 [facility] Urobilinogen, UA 1.0 0.2 - 12 mg/dL [facility] C Urineon 03-03-2024 Bacteria identified Cx Nom [...] Locations R1: This test was performed at: [facility], [address] [place] [address], [address]- , [place], Normal [facility] Comment on above: Performed By: #### 2 [id number] #### [facility] [address] [place] [address] BhCG Quanton 03-01-2024 HCG.beta subunit Qn 747 m[IU]/mL High 1-3 [facility] Comment on above: Result Comment: 'F N ON < 1 - 3' ' 0.2 - 1 WEEK = 5 TO 50' ' 1 - 2 WEEKS = 50 - 500' ' 2 - 3 WEEKS = 100 - 5000' ' 3 - 4 WEEKS = 500 - 62777' ' 4 - 5 WEEKS = 1000 - 82213' ' 5 - 6 WEEKS = 08193 - 874279' ' 6 - 8 WEEKS = 66336 - 487580' ' 8 - 12 WEEKS = 97027 - 431166' Performed By: #### 2 [id number] #### [facility] [address] [place] [address] CHEMISTRYOrdered By: SYSTEM SYSTEM on 03-01-2024 HCG.beta [...] 3 - 4 WEEKS = 500 - 10089' ' 4 - 5 WEEKS = 1000 - 43097' ' 5 - 6 WEEKS = 63342 - 895960' ' 6 - 8 WEEKS = 78762 - 741410' ' 8 - 12 WEEKS = 46605 - 711266' BhCG Quanton 02-27-2024 HCG.beta subunit Qn 268 m[IU]/mL High 1-3 [facility] Comment on above: Result Comment: 'F N ON < 1 - 3' ' 0.2 - 1 WEEK = 5 TO 50' ' 1 - 2 WEEKS = 50 - 500' ' 2 - 3 WEEKS = 100 - 5000' ' 3 - 4 WEEKS = 500 - 28097' ' 4 - 5 WEEKS = 1000 - 82575' ' 5 - 6 WEEKS = 54043 - 189211' ' 6 - 8 WEEKS = 14254 - 902275' ' 8 - 12 WEEKS = 77634 - 785957' Performed By: #### 2 [id number] #### [place] [facility] [address] [place] [address] [facility] 02-27-2024 CNPN Telephone (HEMASA) MADHU RENDON ([id number]) 1985 F Date Time Provider Department 02/27/24 [...] prenatals. We should March labs as scheduled. Naga Johnson RN 02/28/2024 [...] Fully Assessed Reason for Visit: Patient Question [8277] Prescriptions as of 02/28/2024 - enoxaparin (LOVENOX) [...] Status:Closed by NAGA JOHNSON on 02/28/24 Normal [facility] Quanton 02-25-2024 HCG.beta subunit Qn 123 m[IU]/mL High 1-3 [facility] Comment on above: Result Comment: 'F N ON < 1 - 3' ' 0.2 - 1 WEEK = 5 TO 50' ' 1 - 2 WEEKS = 50 - 500' ' 2 - 3 WEEKS = 100 - 5000' ' 3 - 4 WEEKS = 500 - 22458' ' 4 - 5 WEEKS = 1000 - 65212' ' 5 - 6 WEEKS = 65549 - 285599' ' 6 - 8 WEEKS = 96849 - 097959' ' 8 - 12 WEEKS = 81278 - 001636' Performed By: #### 2 [id number] #### [facility] [address] [place] [address] CHEMISTRYOrdered By: SYSTEM SYSTEM on 02-25-2024 HCG.beta [...] 3 - 4 WEEKS = 500 - 49198' ' 4 - 5 WEEKS = 1000 - 39389' ' 5 - 6 WEEKS = 09397 - 221983' ' 6 - 8 WEEKS = 31906 - 818152' ' 8 - 12 WEEKS = 35370 - 466933' [id number] 02-25-2024 HbA1c (Bld) [Mass fraction] 6.0 % High <=5.9 [facility] Comment on above: Performed By: #### 7 [id number] #### [facility] [address] [place] [address] HIV Screen 4th Generation wR fxon 02-24-2024 HIV 1+2 Ab+HIV1 p24 Ag IA Ql Non-Reactive Invalid Interpretation Code Non Reactive [facility] Comment on above: Result Comment: HIV- 1/HIV-2 antibodies and HIV-1 p24 antigen were NOT detected. There is no laboratory evidence of HIV infection. HIV Negative Performed at: [facility] [id number] PhD Jd Montano Performed By: #### 9 [id number] #### [place] [facility] [address] [place] [address] BhCG Quanton 02-23-2024 HCG.beta subunit Qn 52 m[IU]/mL High 1-3 [facility] Comment on above: Result Comment: 'F N ON < 1 - 3' ' 0.2 - 1 WEEK = 5 TO 50' ' 1 - 2 WEEKS = 50 - 500' ' 2 - 3 WEEKS = 100 - 5000' ' 3 - 4 WEEKS = 500 - 66285' ' 4 - 5 WEEKS = 1000 - 76565' ' 5 - 6 WEEKS = 18943 - 441503' ' 6 - 8 WEEKS = 09205 - 876934' ' 8 - 12 WEEKS = 07526 - 075470' Performed By: #### 2 [id number] #### [facility] [facility] [address] [place] [address] CHEMISTRYOrdered By: SYSTEM SYSTEM on 02-23-2024 Cholesterol [...] 3 - 4 WEEKS = 500 - 55749' ' 4 - 5 WEEKS = 1000 - 68223' ' 5 - 6 WEEKS = 86084 - 692892' ' 6 - 8 WEEKS = 70976 - ' ' 8 - 12 WEEKS = 34331 - 295621' Triglyceride [Mass/Vol] 212 mg/dL High <=149mg/dL Remisol Chem TSH Qn 5.68 m[IU]/L High 0.34 - 5.60 mcIU/mL Remisol Chem CHEMISTRYOrdered By: Chelsey Price on 02-23-2024 HbA1c (Bld) [Mass fraction] 5.9 % Normal <=5.9% [facility] ChemAutoSS [id number] 02-23-2024 HbA1c (Bld) [Mass fraction] 5.9 % Normal <=5.9 [facility] Comment on above: Performed By: #### 7 [id number] #### [facility] [address] [place] [address] Lipid Panelon 02-23-2024 Cholesterol [Mass/Vol] 225 mg/dL High 120-200 [facility] Comment on above: Performed By: #### 2 [id number] #### [facility] [address] [place] [address] Cholesterol in HDL [Mass/Vol] 40 mg/dL Invalid Interpretation Code [facility] Comment on above: Result Comment: '>= 60 LOW RISK' '<= 40 HIGH RISK' Performed By: #### 2 [id number] #### [facility] [address] [place] [address] Cholesterol in LDL [Mass/Vol] 171 mg/dL High <=129 [facility] Comment on above: Performed By: #### 2 [id number] #### [facility] [address] [place] [address] Cholesterol in VLDL [Mass/Vol] 42 mg/dL High 7-40 [facility] Comment on above: Performed By: #### 2 [id number] #### [facility] [address] [place] [address] Triglyceride [Mass/Vol] 212 mg/dL High <=149 [facility] Comment on above: Performed By: #### 2 091009 #### [facility] [address] [place] [address] TSHon 02-23-2024 TSH Qn 5.68 m[IU]/L High 0.34-5.60 [facility] Comment on above: Performed By: #### 2 [id number] #### [facility] [address] [place] [address] Ambulatory Visit Summaryon 1 Ambulatory Visit Summary [...] EST With: Evans CASAS DO, FAAFP Where: [facility] [address], [place] [address]- You Need to Schedule the Following Appointments Follow Up with Evans CASAS DO, FAAFP, FAM, PED When: In 3 months Where: [address] [place] [address]- You Need to Complete the Following HgbA1c, [...] Vaginal marlee (more content not included)... Normal [facility] Family Medicine Office/Clini c Noteon 02-05-2024 [...] symptoms? Vision problems? No Sexual dysfunction? No GI-Nausea/committing/bloati ng? No Lightheadedness? No Paresthesias, Ulcerations or sores? [...] 40 mg subcu, continue to follow-up with copy cutter 5. Gestational diabetes (O24.419: Gestational diabetes mellitus in , unspecified control) Metformin 500 mg daily XR tabs 2/day per [employer] COORDINATOR Ordered: HgbA1c HgbA1c HgbA1c HgbA1c 6. Well [...] Evans CASAS DO, FAAFP, FAM, PED In [address] [facility], [place] [address]- Additional Instructions: Patient Education Acute Bronchitis, Adult Problem List/Past Medical History Ongoing Acute (more content not included)... Normal [facility] Comment on above: Result Comment: [...] Community acquired pneumonia Refills: 5 Pickup at [facility] 1985 New azithromycin (azithromycin 250 mg Tab 5-day Dose Pack (Z-Jonny)) 1 Packets By Mouth As Directed Community acquired pneumonia Duration: 5 Days as directed on package labeling Pickup at [facility] 1985 Unchanged enoxaparin (Lovenox 40 mg/ 0.4 [...] physician if questions or concerns Pharmacy Information [facility] 1986: [address] [id number] [phone] Allergies Milk Products (Illness) ciprofloxacin (Numbness and [...] Spontaneous miscarriage Suspected COVID-19 virus infection Vaginal alia Patient Survey You may receive a survey via text or e-mail asking about your office visit. Please share your experience with us by completing your survey. We appreciate your feedback and thank you for choosing us for your care. Normal [facility] Medicine Office/Clini c Noteon 02-02-2024 [...] a 38 Years White Female presenting [facility] with body aches and productive cough [...] puff(s), Inhalation, q6hr, 1 EA, Refill(s) 5, [facility] 1985, 168, cm, 02/02/24 14:43:00 EDT, Height/Length Dosing, 101.1, kg, 02/02/24 14:43:00 EDT, Weight Dosing azithromycin, = 1 packet(s), Oral, As Directed, as directed on package labeling, X 5 day(s), # 6 tab(s), Refills(s) 0, Pharmacy: [facility] 1985, 168, cm, 02/02/24 14:43:00 [...] Bernstein MD, FAM, MED Only if needed [address] [place] [phone] Additional Instructions: Problem List/Past Medical History Ongoing [...] Spontaneous miscarriage Suspected COVID-19 virus infection Vaginal alia Procedure/Surgical History Biopsy of breast (06/14/2013), Extraction [...] 2000 International_[employer] (more content not included)... Normal [facility] Comment on above: Result Comment: Elec tronically Signed By: Anni Bernstein MD\.br\Date and Time Signed: 02/02/24 15:03 EDT CBC W Auto Differential pane l (Bld)on 01-02-2024 Basophils (Bld) [#/Vol] 10*3/uL Normal <0.[address] [facility] Comment on above: Order Comment: Speci men Type: BLOOD SPECIMENOrdering Facility: [facility] Address: [address] [place] [address] Performed By: #### 5 7021-8 ####[facility] LABCLIA [id number] [place] [address] Basophils/100 WBC (Bld) 0.3 % Normal [facility] Comment on above: Order Comment: Speci men Type: BLOOD SPECIMENOrdering Facility: [facility] Address: [address] [place] [address] Performed By: #### 5 7021-8 ####[facility] LABCLIA [id number] [place] [address] Differential cell count method Nom (Bld) Auto Normal [facility] Comment on above: Order Comment: Speci men Type: BLOOD SPECIMENOrdering Facility: [facility] Address: [address] [place] [address] Performed By: #### 5 7021-8 ####[facility] LABCLIA [id number] [place] [address] Eosinophils (Bld) [#/Vol] 0.07 10*3/uL Normal <0.[address] [facility] Comment on above: Order Comment: Speci men Type: BLOOD SPECIMENOrdering Facility: [facility] Address: [address] [place] [address] Performed By: #### 5 7021-8 ####[facility] LABCLIA [id number] [place] [address] Eosinophils/100 WBC (Bld) 0.9 % Normal [facility] Comment on above: Order Comment: Speci men Type: BLOOD SPECIMENOrdering Facility: [facility] Address: [address] [place] [address] Performed By: #### 5 7021-8 ####[facility] LABCLIA [id number] [place] [address] Erythrocyte distribution width (RBC) [Ratio] 13.3 % Normal 11.5-15.[address] [facility] Comment on above: Order Comment: Speci men Type: BLOOD SPECIMENOrdering Facility: [facility] Address: [address] [place] [address] Performed By: #### 5 7021-8 ####[facility] LABCLIA [id number] [place] [address] Hematocrit (Bld) [Volume fraction] 38.5 % Normal 36.0-46.[address] [facility] Comment on above: Order Comment: Speci men Type: BLOOD SPECIMENOrdering Facility: [facility] Address: [address] [place] [address] Performed By: #### 5 7021-8 ####[facility] LABCLIA [id number] [place] [address] Hemoglobin (Bld) [Mass/Vol] 13.6 g/dL Normal 11.5-15.[address] [facility] Comment on above: Order Comment: Speci men Type: BLOOD SPECIMENOrdering Facility: [facility] Address: [address] [place] [address] Performed By: #### 5 7021-8 ####[facility] LABCLIA [id number] [place] [address] Immature granulocytes (Bld) [#/Vol] 0.03 10*3/uL Normal <0.[address] [facility] Comment on above: Order Comment: Speci men Type: BLOOD SPECIMENOrdering Facility: [facility] Address: [address] [place] [address] Performed By: #### 5 7021-8 ####[facility] LABCLIA [id number] [place] [address] Immature granulocytes/100 WBC (Bld) 0.4 % Normal [facility] Comment on above: Order Comment: Speci men Type: BLOOD SPECIMENOrdering Facility: [facility] Address: [address] [place] [address] Performed By: #### 5 7021-8 ####[facility] LABCLIA [id number] [place] [address] Lymphocytes (Bld) [#/Vol] 3.06 10*3/uL Normal 1.00-4.[address] [facility] Comment on above: Order Comment: Speci men Type: BLOOD SPECIMENOrdering Facility: [facility] Address: [address] [place] [address] Performed By: #### 5 7021-8 ####[facility] LABCLIA [id number] [place] [address] Lymphocytes/100 WBC (Bld) 39.0 % Normal [facility] Comment on above: Order Comment: Speci men Type: BLOOD SPECIMENOrdering Facility: [facility] Address: [address] [place] [address] Performed By: #### 5 7021-8 ####[facility] LABCLIA [id number] [place] [address] MCH (RBC) [Entitic mass] 30.8 pg Normal 26.0-34.[address] [facility] Comment on above: Order Comment: Speci men Type: BLOOD SPECIMENOrdering Facility: [facility] Address: [address] [place] [address] Performed By: #### 5 7021-8 ####[facility] LABCLIA [id number] [place] [address] MCHC (RBC) [Mass/Vol] 35.3 g/dL Normal 30.5-36.0 [facility] Comment on above: Order Comment: Speci men Type: BLOOD SPECIMENOrdering Facility: [facility] Address: [address] [place] [address] Performed By: #### 5 7021-8 ####[facility] LABCLIA [id number] [place] [address] MCV (RBC) [Entitic vol] 87.3 fL Normal 80.0-100.[address] [facility] Comment on above: Order Comment: Speci men Type: BLOOD SPECIMENOrdering Facility: [facility] Address: [address] [place] [address] Performed By: #### 5 7021-8 ####[facility] LABCLIA [id number] [place] [address] Monocytes (Bld) [#/Vol] 0.50 10*3/uL Normal <0.[address] [facility] Comment on above: Order Comment: Speci men Type: BLOOD SPECIMENOrdering Facility: [facility] Address: [address] [place] [address] Performed By: #### 5 7021-8 ####[facility] LABCLIA [id number] [place] [address] Monocytes/100 WBC (Bld) 6.4 % Normal [facility] Comment on above: Order Comment: Speci men Type: BLOOD SPECIMENOrdering Facility: [facility] Address: [address] [place] [address] Performed By: #### 5 7021-8 ####[facility] LABCLIA [id number] [place] [address] Neutrophils (Bld) [#/Vol] 4.17 10*3/uL Normal 1.45-7.[address] [facility] Comment on above: Order Comment: Speci men Type: BLOOD SPECIMENOrdering Facility: [facility] Address: [address] [place] [address] Performed By: #### 5 7021-8 ####[facility] LABCLIA [id number] [place] [address] Neutrophils/100 WBC (Bld) 53.0 % Normal [facility] Comment on above: Order Comment: Speci men Type: BLOOD SPECIMENOrdering Facility: [facility] Address: [address] [place] [address] Performed By: #### 5 7021-8 ####[facility] LABCLIA [id number] [place] [address] Nucleated RBC (Bld) [#/Vol] 10*3/uL Normal <0.[address] [facility] Comment on above: Order Comment: Speci men Type: BLOOD SPECIMENOrdering Facility: [facility] Address: [address] [place] [address] Performed By: #### 5 7021-8 ####[facility] LABCLIA [id number] [place] [address] Nucleated RBC/100 WBC (Bld) [Ratio] 0.0 /[address] [facility] Comment on above: Order Comment: Speci men Type: BLOOD SPECIMENOrdering Facility: [facility] Address: [address] [place] [address] Performed By: #### 5 7021-8 ####[facility] LABCLIA [id number] [place] [address] Platelet mean volume (Bld) [Entitic vol] 9.8 fL Normal 9.0-12.[address] [facility] Comment on above: Order Comment: Speci men Type: BLOOD SPECIMENOrdering Facility: [facility] Address: [address] [place] [address] Performed By: #### 5 7021-8 ####[facility] LABIA [id number] [place] [address] Platelets (Bld) [#/Vol] 330 10*3/uL Normal 150-[address] [facility] Comment on above: Order Comment: Speci men Type: BLOOD SPECIMENOrdering Facility: [facility] Address: [address] [place] [address] Performed By: #### 5 7021-8 ####[facility] LABCLIA [id number] [place] [address] RBC (Bld) [#/Vol] 4.41 10*6/uL Normal 3.90-5.20 [facility] Comment on above: Order Comment: Speci men Type: BLOOD SPECIMENOrdering Facility: [facility] Address: [address] [place] [address] Performed By: #### 5 7021-8 ####[facility] LABCLIA [id number] [place] [address] WBC (Bld) [#/Vol] 7.85 10*3/uL Normal 3.70-11.00 [facility] Comment on above: Order Comment: Speci men Type: BLOOD SPECIMENOrdering Facility: [facility] Address: [address] [place] [address] Performed By: #### 5 7021-8 ####[facility] LABCLIA [id number] [place] [address] CNOVSPon 01-02-2024 CNOVSP Visit (SP) Office (H EMASA) JUSTICE,KATIE ([id number]) 1985 F Date Time Provider Department 01/02/24 1:45 PM SALVADOR CALIX During your visit today, we recorded the following information about you: Temperature Pulse Respiration Blood pressure 97.1 degrees 91/minute 16/minute 128/81 Weight Height Last Period 102.7 kg 1.677 m 12/22/23 Salvador Calix MD 01/04/2024 12:54 PM Signed NAME: Madhu Rendon CLINIC NO.: [id number] DATE OF SERVICE: January 02, 2024 (Levon) [...] later in 2018. These were found in [place], [place]. I don't have access to these [...] a target-like rash shortly before presenting to [facility] in 2016 with headaches and [...] day Vitamin D, TSH, Calcium with CMP - ____ HPI: Updated Visit, January 02, 2024: [...] soon. When she had a stroke in [place], she had symptoms up to a month [...] weak, uri (more content not included)... Normal [facility] Sisi 01-02-2024 CNPN Telephone (SmartBIMAP) JUSTICEMADHU ([id number]) 1985 F Date Time Provider Department 01/02/24 SALVADOR CALIX During your visit today, we recorded the following information about you: Marleen Mcdonald 01/02/2024 2:[address] Luna is [...] Status:Closed by VALERI YAN on 01/07/[address] [facility] Comprehensive metabolic 2000 panelon 01-02-2024 Albumin [Mass/Vol] 4.9 g/dL Normal 3.9-4.9 [facility] Comment on above: Order Comment: Speci men Type: BLOOD SPECIMENOrdering Facility: [facility] Address: [address] [place] [address] Performed By: #### 2 4323-8 ####[facility] LABCLIA [id number] [place] [address] ALP [Catalytic activity/Vol] 71 U/L Normal 34-[address] [facility] Comment on above: Order Comment: Speci men Type: BLOOD SPECIMENOrdering Facility: [facility] Address: [address] [place] [address] Performed By: #### 2 4323-8 ####[facility] LABCLIA [id number] [place] [address] ALT [Catalytic activity/Vol] 22 U/L Normal 7-[address] [facility] Comment on above: Order Comment: Speci men Type: BLOOD SPECIMENOrdering Facility: [facility] Address: [address] [place] [address] Performed By: #### 2 4323-8 ####[facility] LABCLIA [id number] [place] [address] Anion gap [Moles/Vol] 12 mmol/L Normal 8-15 [facility] Comment on above: Order Comment: Speci men Type: BLOOD SPECIMENOrdering Facility: [facility] Address: [address] [place] [address] Performed By: #### 2 4323-8 ####[facility] LABCLIA [id number] [place] [address] AST [Catalytic activity/Vol] 18 U/L Normal 13-[address] [facility] Comment on above: Order Comment: Speci men Type: BLOOD SPECIMENOrdering Facility: [facility] Address: [address] [place] [address] Performed By: #### 2 4323-8 ####[facility] LABCLIA [id number] [place] [address] Bilirubin [Mass/Vol] 0.3 mg/dL Normal 0.2-1.3 [facility] Comment on above: Order Comment: Speci men Type: BLOOD SPECIMENOrdering Facility: [facility] Address: [address] [place] [address] Performed By: #### 2 4323-8 ####[facility] LABCLIA [id number] [place] [address] Calcium [Mass/Vol] 9.9 mg/dL Normal 8.5-10.2 [facility] Comment on above: Order Comment: Speci men Type: BLOOD SPECIMENOrdering Facility: [facility] Address: [address] [place] [address] Performed By: #### 2 4323-8 ####[facility] LABCLIA [id number] [place] [address] Chloride [Moles/Vol] 100 mmol/L Normal 98-107 [facility] Comment on above: Order Comment: Speci men Type: BLOOD SPECIMENOrdering Facility: [facility] Address: [address] [place] [address] Performed By: #### 2 4323-8 ####[facility] LABCLIA [id number] [place] [address] CO2 [Moles/Vol] 24 mmol/L Normal 22-[address] [facility] Comment on above: Order Comment: Speci men Type: BLOOD SPECIMENOrdering Facility: [facility] Address: [address] [place] [address] Performed By: #### 2 4323-8 ####[facility] LABCLIA [id number] [place] [address] Creatinine [Mass/Vol] 0.84 mg/dL Normal 0.58-0.96 [facility] Comment on above: Order Comment: Speci men Type: BLOOD SPECIMENOrdering Facility: [facility] Address: [address] [place] [address] Performed By: #### 2 4323-8 ####[facility] LABCLIA [id number] [place] [address] Creatinine and Glomerular filtration rate.predicted panel (S/P/Bld) 91 mL/min/1.73m??? Normal >=[address] [facility] Comment on above: Order Comment: Speci men Type: BLOOD SPECIMENOrdering Facility: [facility] Address: [address] [place] [address] Result Comment: Hawa mated Glomerular Filtration Rate [...] accurately reflect actual GFR. Performed By: #### 2 4323-8 ####[facility] LABCLIA [id number] [place] [address] Glucose [Mass/Vol] 84 mg/dL Normal 74-99 [facility] Comment on above: Order Comment: Speci men Type: BLOOD SPECIMENOrdering Facility: [facility] Address: [address] [place], [place] [address] Result Comment: The [place] Diabetes Association (ADA) provides guidance for cutoff [...] Standards of Medical Care in Diabetes 2016, [place] [employer]. Diabetes Care. 2016.39(Suppl 1). Performed By: #### 2 4323-8 ####[facility] LABCLIA [id number] [place] [address] Potassium [Moles/Vol] 3.5 mmol/L Low 3.7-5.1 [facility] Comment on above: Order Comment: Speci men Type: BLOOD SPECIMENOrdering Facility: [facility] Address: [address] [place] [address] Performed By: #### 2 4323-8 ####[facility] LABCLIA [id number] [place] [address] Protein [Mass/Vol] 7.3 g/dL Normal 6.3-8.0 [facility] Comment on above: Order Comment: Speci men Type: BLOOD SPECIMENOrdering Facility: [facility] Address: [address] [place] [address] Performed By: #### 2 4323-8 ####[facility] LABCLIA [id number] [place] [address] Sodium [Moles/Vol] 136 mmol/L Normal 136-144 [facility] Comment on above: Order Comment: Speci men Type: BLOOD SPECIMENOrdering Facility: [facility] Address: [address] [place] [address] Performed By: #### 2 4323-8 ####[facility] LABCLIA [id number] [place] [address] Urea nitrogen [Mass/Vol] 8 mg/dL Normal 7-[address] [facility] Comment on above: Order Comment: Speci men Type: BLOOD SPECIMENOrdering Facility: [facility] Address: [address] [place] [address] Performed By: #### 2 4323-8 ####[facility] LABCLIA [id number] [place] [address] Ferritin SerPl-mCncon 2023 Ferritin [Mass/Vol] 261.0 ng/mL High 14.7-205.1 [facility] Comment on above: Order Comment: Speci men Type: BLOOD SPECIMENOrdering Facility: [facility] Address: [address] [place] [address] Performed By: #### 2 132-9, 2284-8, 2276-4, 84933-7 ####[facility] LABCLIA [id number] [place] [address] [place] Folate SerPl-mCncon 01-02-20 24 Folate [Mass/Vol] 17.2 ng/mL Normal >4.7 [facility] Comment on above: Order Comment: Speci men Type: BLOOD SPECIMENOrdering Facility: [facility] Address: [address] [place] [address] Performed By: #### 2 132-9, 2284-8, 2276-4, 27254-8 ####[facility] LABCLIA [id number] [place] [id number] [place] Iron and Iron binding capaci ty panelon 01-02-2024 Iron [Mass/Vol] 66 ug/dL Normal 41-[address] [facility] Comment on above: Order Comment: Speci men Type: BLOOD SPECIMENOrdering Facility: [facility] Address: [address] [place] [address] Performed By: #### 2 132-9, 2284-8, 2276-4, 28903-2 ####[facility] LABCLIA [id number] [place] [address] [place] Iron binding capacity [Mass/Vol] 354 ug/dL Normal 232-[address] [facility] Comment on above: Order Comment: Speci men Type: BLOOD SPECIMENOrdering Facility: [facility] Address: [address] [place] [address] Performed By: #### 2 132-9, 2284-8, 2276-4, 18110-8 ####[facility] LABIA [id number] [address] STATES OF [facility] Iron/TIBC [Molar ratio] 18.6 % Normal 15.0-57.[address] [facility] Comment on above: Order Comment: Speci men Type: BLOOD SPECIMENOrdering Facility: [facility] Address: [address] [place] [address] Performed By: #### 2 132-9, 2284-8, 2276-4, 89504-3 ####[facility] [id number] [address] [place] Vit B12 [facility] Cobalamin (Vitamin B12) [Mass/Vol] 460 pg/mL Normal 232-[address] [facility] Comment on above: Order Comment: Speci men Type: BLOOD SPECIMENOrdering Facility: [facility] Address: [address] [place] [address] Performed By: #### 2 132-9, 2284-8, 2276-4, 65885-7 ####[facility] LABIA [id number] [place] [id number] [place] Sisi 12-17-2023 CNPN Telephone (HEMASA) MADHU RENDON ([id number]) 1985 F Date Time Provider Department 12/17/23 NAGA JOHNSONASA During your visit today, we recorded the [...] going on - would rec PCP. Naga Johnson, MARSHA 12/17/2023 12:57 PM Signed Pt updated and [...] Status:Closed by NAGA JOHNSON on 12/17/[address] [facility] MRI Brain w/o Contraston MRI Brain [...] MD Transcribed by: LINDY Technologist: ALEXSANDRA Normal [facility] Cortisolon 12-08-2023 Cortisol [Mass/Vol] 12.5 microgram/dL Invalid Interpretation Code 6.2-19.4 [facility] Comment on above: Result Comment: Plea se Note: The reference interval and flagging for this test is for an AM collection. If this is a PM collection please use: Cortisol PM: 2.3-11.9 Performed at: [employer] [id number] PhD Jd Montano Performed By: #### 2 488940 #### [facility] [address] [place] [address] T3 Freeon 12-08-2023 Free T3 [Mass/Vol] 2.5 pg/mL Invalid Interpretation Code 2.0-4.4 [facility] Comment on above: Result Comment: Perf ormed at: [employer] [id number] PhD Jd Montano Performed By: #### 2 301284 #### [facility] [address] [place] [address] Amylaseon 12-06-2023 Amylase [Catalytic activity/Vol] 38 U/L Normal 25-157 [facility] Comment on above: Performed By: #### 2 098282 #### [facility] [address] [place] [address] CHEMISTRYOrdered By: SYSTEM SYSTEM on 12-06-2023 Amylase [Catalytic activity/Vol] 38 U/L Normal 25 - 157 unit/L Remisol Chem Cobalamin (Vitamin B12) [Mass/Vol] 328 pg/mL Normal 50 - 1500 pg/mL Remisol Chem CRP [Mass/Vol] 0.2 mg/dL Normal <=1.9mg/dL Remisol Chem Free T4 [Mass/Vol] 0.58 ng/dL Normal 0.58 - 1.64 ng/dL Remisol Chem TSH Qn 4.97 m[IU]/L Normal 0.34 - 5.60 mcIU/mL Remisol Chem CRPon 12-06-2023 CRP [Mass/Vol] 0.2 mg/dL Normal <=1.9 [facility] Comment on above: Performed By: #### 2 059492 #### [facility] [address] [place] [address] Free T4on 12-06-2023 Free T4 [Mass/Vol] 0.58 ng/dL Normal 0.58-1.64 [facility] Comment on above: Performed By: #### 2 725028 #### [facility] [address] [place] [address] HEMATOLOGYOrdered By: Isha Zheng on 12-06-2023 ESR (Bld) [Velocity] 18 mm/h Normal 0 - 34 mm/hr [facility] HemeAutoSS Sed Rate Automatedon 024 ESR (Bld) [Velocity] 18 mm/h Normal 0-34 [facility] Comment on above: Performed By: #### 1 [id number] #### [facility] [address] [place] [address] TSHon 12-06-2023 TSH Qn 4.97 m[IU]/L Normal 0.34-5.60 [facility] Comment on above: Performed By: #### 2 632671 #### [facility] [address] [place] [address] Vit B12on 12-06-2023 Cobalamin (Vitamin B12) [Mass/Vol] 328 pg/mL Normal 50-1500 [facility] Comment on above: Performed By: #### 2 864158 #### [facility] [address] [place] [address] Sisi 11-15-2023 CNPN Telephone (HEMTSA) MADHU RENDON ([id number]) 1985 F Date Time Provider Department 11/15/23 [...] Status:Closed by SAMUEL SANABRIA on 11/15/23 Normal [facility] Office/Clini c Noteon 11-09-2023 Family Medicine [...] Iron deficiency) Mild, as reported by her copy cutter, labs from 2022 appear normal 6. Pre-diabetes (R73.03: Prediabetes) Last A1c Continue metformin Nutrition: - Maintain optimal weight - Calorie restriction - Plant-based diet; high polyunsatur (more content not included)... Normal [facility] Comment on above: Result Comment: Elec tronically Signed By: Monica Keyes\.cedrick\Date and Time Signed: 11/09/23 15:56 EDT Physician Referralon 024 Physician Referral [id number] Normal [facility] Ambulatory Visit Summaryon 0 10-23-2023 Ambulatory Visit Summary JUSTICEMADHU REYNOLDS :1985 Visit Date:10/23/2023 Ambulatory Visit Instructions Your Diagnosis Dysfunction of right eustachian tube Nasal polyps Deviated septum BMI 37.0-37.9, adult Obesity Your Care Team Attending Physician - Shirlene YEBOAH, Lourdes Baltazar Primary Care Physician - Evans CASAS DO, FAAFP This Is Your Medications List ciprofloxacin-dexamethasone otic (Ciprodex 0.3%-0.1% Susp-Otic) enoxaparin (Lovenox 40 mg/0.4 mL Injection) ergocalciferol (Vitamin D) fluticasone nasal (Flonase 0.05 mg/inh [place]) metformin (MetFORMIN (Eqv-Glucophage XR) 500 mg oral [...] EDT With: Evans CASAS DO, FAAFP Where: [facility] Primary Care Normal [facility] Family Medicine Office/Clini c Noteon [...] Mouth: mucous membranes pink, moist and intact. [place] posterior oropharynx, no palatal inflammation, uvula midline, [...] pain as directed - safe during Ordered: ciprofloxacin-dexamethasone otic, 4 drop(s), Otic, BID for 7 day(s), 7.5 mL, Refill(s) 0, [id number], 168, cm, 10/23/23 16:55:00 EDT, Height/Length Dosing, 106.2, kg, 10/23/23 16:55:00 EDT, Weight Dosing [facility] External Ambulatory Referral 2. Nasal polyps (J33.9: Nasal polyp, unspecified) pt reported - moved before previous ENT could perform surgery - submitted new referral at this time Ordered: [facility] External Ambulatory Referral 3. Deviated septum (J34.2: Deviated nasal septum) pt reported - moved before previous ENT could perform surgery - see #2 Ordered: [facility] External Ambulatory Referral 4. BMI 37.0-37.9, adult [...] will be followed at subsequent visits. Ordered: ciprofloxacin-dexamethasone otic, 4 drop(s), Otic, BID for 7 day(s), 7.5 mL, Refill(s) 0, [id number], 168, cm, 10/23/23 16:55:00 EDT, Height/Length Dosing, 106.2, kg, 10/23/23 16:55:00 EDT, Weight Dosing 5. Obesity ( (more content not included)... Normal [facility] Comment on above: Result Comment: [...] specializes in ear, nose, and throat disorders (team primary care physician, or ENT) for more tests and treatment. [...] Follow these instructions at home: ? Take mvcu-ynd-lqefwwk and prescription medicines only as told by [...] specializes in ear, nose, and throat disorders (team primary care physician, or ENT) for more tests and treatment. This information is not intended to replace advice given to you by your health care provider. Make sure you discuss any questions you have with your health care provider. Document Revised: 12/12/2021 Document Reviewed: 12/12/2021 [employer] Patient Education ? 2022 [employer] Nasal Polyps Nasal polyps are growths [...] not cancer (more content not included)... Normal [facility] CT Abdomen/Pelvis w/o Contra ston [...] Oral contrast amount in ml's: 0 Normal [facility] B hCG Qualon 09-28-2023 Beta HCG ( test) Ql Negative Normal [facility] Comment on above: Performed By: #### 2 [id number] #### [facility] [address] [place] [address] BMPon 09-28-2023 Anion gap [Moles/Vol] 13 mmol/L Normal 6-16 [facility] Comment on above: Performed By: #### 2 143786 #### [facility] [address] [place] [address] Calcium [Mass/Vol] 9.9 mg/dL Normal 8.9-11.1 [facility] Comment on above: Performed By: #### 2 758207 #### [facility] [address] [place] [address] Chloride [Moles/Vol] 101 mmol/L Normal 101-111 [facility] Comment on above: Performed By: #### 2 407154 #### [facility] [address] [place] [address] CO2 [Moles/Vol] 25 mmol/L Normal 21-31 [facility] Comment on above: Performed By: #### 2 004375 #### [facility] [address] [place] [address] Creatinine [Mass/Vol] 0.9 mg/dL Normal 0.5-1.3 [facility] Comment on above: Performed By: #### 2 275556 #### [facility] [address] [place] [address] Glucose [Mass/Vol] 94 mg/dL Normal 55-199 [facility] Comment on above: Performed By: #### 2 768192 #### [facility] [address] [place] [address] Potassium [Moles/Vol] 3.6 mmol/L Normal 3.5-5.3 [facility] Comment on above: Performed By: #### 2 810760 #### [facility] [address] [place] [address] Sodium [Moles/Vol] 135 mmol/L Normal 135-145 [facility] Comment on above: Performed By: #### 2 306826 #### [facility] [address] [place] [address] Urea nitrogen [Mass/Vol] 8 mg/dL Normal 5-21 [facility] Comment on above: Performed By: #### 2 449528 #### [facility] [address] [place] [address] Urea nitrogen/Creatinine [Mass ratio] 9 No Units Low 10-20 [facility] Comment on above: Performed By: #### 2 811732 #### [facility] [address] [place] [address] CBC w/ Auto Diffon 4 Basophils/100 WBC (Bld) 0.7 % Normal 0.0-2.0 [facility] Comment on above: Performed By: #### 2 369078 #### [facility] [address] [place] [address] Basophils/Leukocytes Auto (Bld) [Pure # fraction] 0.1 E9/L Normal 0.0-0.2 [facility] Comment on above: Performed By: #### 2 913367 #### [facility] [address] [place] [address] Eosinophils (Bld) [#/Vol] 0.0 E9/L Normal 0.0-0.5 [facility] Comment on above: Performed By: #### 2 425111 #### [facility] [address] [place] [address] Eosinophils/100 WBC (Bld) 0.5 % Normal 0.0-8.0 [facility] Comment on above: Performed By: #### 2 610522 #### [facility] [address] [place] [address] Erythrocyte distribution width (RBC) [Ratio] 14.3 % High 10.9-14.2 [facility] Comment on above: Performed By: #### 2 193554 #### [facility] [address] [place] [address] Hematocrit (Bld) [Volume fraction] 39.5 % Normal 34.0-46.0 [facility] Comment on above: Performed By: #### 2 608538 #### [facility] [address] [place] [address] Hemoglobin (Bld) [Mass/Vol] 13.2 g/dL Normal 12.0-16.0 [facility] Comment on above: Performed By: #### 2 423628 #### [facility] [address] [place] [address] Lymphocytes (Bld) [#/Vol] 3.5 E9/L Normal 1.0-4.0 [facility] Comment on above: Performed By: #### 2 585618 #### [facility] [address] [place] [address] Lymphocytes/100 WBC (Bld) 35.6 % Normal 14.0-50.0 [facility] Comment on above: Performed By: #### 2 592524 #### [facility] [address] [place] [address] MCH (RBC) [Entitic mass] 29.3 pg Normal 27.0-34.0 [facility] Comment on above: Performed By: #### 2 030403 #### [facility] [address] [place] [address] MCHC (RBC) [Mass/Vol] 33.5 g/dL Normal 31.4-36.0 [facility] Comment on above: Performed By: #### 2 031513 #### [facility] [address] [place] [address] MCV (RBC) [Entitic vol] 87.4 fL Normal 80.0-100.0 [facility] Comment on above: Performed By: #### 2 861719 #### [facility] [address] [place] [address] Monocytes (Bld) [#/Vol] 0.7 E9/L Normal 0.2-1.0 [facility] Comment on above: Performed By: #### 2 075517 #### [facility] [address] [place] [address] Neutrophils (Bld) [#/Vol] 5.6 E9/L Normal 2.0-7.5 [facility] Comment on above: Performed By: #### 2 656940 #### [facility] [address] [place] [address] Neutrophils/100 WBC (Bld) 56.4 % Normal 36.0-75.0 [facility] Comment on above: Performed By: #### 2 999011 #### [facility] [address] [place] [address] Platelet mean volume (Bld) [Entitic vol] 8.1 fL Normal 6.4-10.8 [facility] Comment on above: Performed By: #### 2 173122 #### [facility] [address] [place] [address] Platelets (Bld) [#/Vol] 360.0 E9/L Normal 150.0-500. 0 [facility] Comment on above: Performed By: #### 2 332079 #### [facility] [address] [place] [address] RBC (Bld) [#/Vol] 4.5 E12/L Normal 4.3-5.9 [facility] Comment on above: Performed By: #### 2 386183 #### [facility] [address] [place] [address] WBC corrected for nucl RBC Auto (Bld) [#/Vol] 9.9 E9/L Normal 4.0-11.0 [facility] Comment on above: Performed By: #### 2 355242 #### [facility] [address] [place] [address] CHEMISTRYOrdered By: SYSTEM SYSTEM on 09-28-2023 Albumin [Mass/Vol] 4.8 g/dL Normal 3.3 - 5.0 gm/dL Remisol Chem Albumin/Globulin [Mass ratio] 1.6 {ratio} Normal 1.1 - 2.2 Rem[facility] Chem ALP [Catalytic activity/Vol] 66 [iU]/d Normal 21 - 98 Int._Unit/ L Remisol Chem ALT No additional P-5'-P [Catalytic activity/Vol] 16 [iU]/d Normal 6 - 46 Int._Unit/ L Remisol Chem Anion gap [Moles/Vol] 13 mmol/L Normal 6 - 16 mEq/L Remisol Chem AST [Catalytic activity/Vol] 15 [iU]/d Normal 5 - 43 Int._Unit/ L [facility] Chem Bilirubin [Mass/Vol] 0.3 mg/dL Normal [...] Chem eGFR 84 mL/min/1.73 m2 Normal >=59mL/min /1.73 m2 Remisol Chem Globulin (S) [Mass/Vol] 3.0 [...] - 20 Remisol Chem Consent for Treatmenton 05-3 Consent for Treatment [id number] Normal [facility] Discharge Instructionson Discharge Instructions [id number] Normal [facility] ED Clinical Summaryon 2023 ED Clinical Summary (Inserted Image. Lyssa ble to display) [place] [id number] ED Clinical Summary Person Information Name: MADHU RENDON/[facility] Age: 37 Years : 1985 Sex: Female Language: Tristanian PCP: Evans CASAS DO, FAAFP Marital Status: Phone: [phone] Visit Id: Visit Reason: Medical problem - [...] 09/28/2023 21:22:15 09/28/2023 21:22:15 09/28/2023 21:22:15 [address]: [address] [facility] [id number] [facility] DOC NOTES: MEDICAL INFORMATION: Prescriptions Given: Medications to Continue with No Changes Other Medications enoxaparin (Lovenox 40 mg/0.4 mL Injection) 40 Milligram Subcutaneous every 24 hours. ergocalciferol (Vitamin D) 2,000 International unit By Mouth every week. fluticasone nasal (Flonase 0.05 mg/inh [place]) 2 Sprays Nasal Inhalation every day. each nostril. metformin (MetFORMIN (Eqv-Glucophage XR) 500 mg oral tablet, extended release) 2 Tablets By Mouth every day. PATIENT EDUCATION INFORMATION: Instructions: Abdominal Pain, Adult Follow up: With: Address: When: [address], [place] [address] Business (1) In 3 days DIAGNOSIS: 1:Abdominal pain Normal [facility] ED Note-Physicianon 09-28-19 ED Note-Physician [...] this plan is discharged stable condition. Normal [facility] Comment on above: Result Comment: Elec tronically Signed By: Sidney Daly DO\.br\Date and Time Signed: 09/28/23 21:12 EDT ED Note-Physician Basic Information Time Seen: Bijan Miramontes PA-C 09/28/2023 18:46 Chief Complaint Pt woke up around 7 am and started getting a pain on R side of belly button. States feels bloated and like her abdomen is coral.Was sent here from [facility] for possible appendicitis. Nausea, denies vomiting. History [...] Spontaneous miscarriage Suspected COVID-19 virus infection Vaginal alia Procedure/Surgical History Biopsy of breast (06/14/2013), Extraction of wisdom tooth (2006), endoscopy for ovarian cysts to drain. Medications Inpatient NS 1000 ml Bolus, 1000 mL, IV, Once Home Flonase 0.05 mg/inh [place], 2 spray(s), Nasal, Daily Lovenox 40 mg/0.4 [...] No qual (more content not included)... Normal [facility] Comment on above: Result Comment: [...] these instructions at home: Medicines ? Take stfm-ivf-uymwsmq and prescription medicines only as told by [...] your condition for any changes. ? Take qrpd-wxb-vffyjhf and prescription medicines only as told by [...] Reviewed: 08/25/2019 Elsevier Patient Education ? 2022 [employer] Normal [facility] ED Patient Summaryon 024 ED Patient Summary (Inserted Image. Lyssa ble to display) [address] [address] Patient Discharge Instructions Person Information Name: MADHU RENDON Age: 37 Years Arrival Date: 09/28/2023 18:21:25 Discharge Diagnosis: 1:Abdominal pain Primary Care Physician: Evans CASAS DO, FAAFP Provider Information Primary Provider: Benny Uribe DO Advanced Epic Manager:Bijan Miramontes PA-C The exam and treatment you received in the Emergency Department were for an urgent problem and are not intended as complete care. It is important that you follow up with a doctor, nurse practitioner, or physician?s assistant media planner for ongoing care. If your symptoms become worse or you do not improve as expected and you are unable to reach your usual health care provider, you should return to the Emergency Department. We are available 24 hours a day. MADHU RENDON has been given the following list of patient education materials, prescriptions and follow-up instructions: Follow-up Instructions: With: Address: When: Evans CASAS [address] [place] [address], [place] [address] Business (1) In 3 days In the event that this physician does not participate in your insurance network, please consult with your insurance company to find a nearby participating provider. Patient Education Materials: Abdominal Pain, Adult A MESSAGE TO ALL PATIENTS REGARDING OPIOIDS PRESCRIPTION OPIOIDS: WHAT YOU NEED TO KNOW Prescription opioids can be used to help relieve wvmesgmk-vs-vujsip pain and are often prescribed following a [...] guidance from the Food and Drug Administration (www.fda.gov/Drugs/Resource sForYou). ? Visit www.cdc.gov/drugoverdose to learn about the risks of opioids abuse and overdose. ? If you believe you may be struggling with addiction, tell your health animal daycare provider and ask for guidance or call [facility]?S National Helpline at 7-994-477-PIFX. f Source: Dep (more content not included)... Normal [facility] Family Medicine Office/Clini c Noteon 09-28-2023 Family [...] agree with above documented HPI by medical imaging technician. Portions of this record may have been created with voice recognition artificial intelligence software, specifically LifeBlinx, RawData and or Onyvax. Substitutions may have occurred due to the inherent limitations of voice recognition and artificial intelligence software. Patient is a 37-year-old female who presents to critical access hospital care, for right lower quadrant pain, [...] can o (more content not included)... Normal [facility] Comment on above: Result Comment: [...] 09-28-2023 Albumin [Mass/Vol] 4.8 g/dL Normal 3.3-5.0 [facility] Comment on above: Performed By: #### 2 [id number] #### [facility] [address] [place] [address] Albumin/Globulin (S) [Mass conc ratio] 1.6 Normal 1.1-2.2 [facility] Comment on above: Performed By: #### 2 [id number] #### [facility] [address] [place] [address] ALP [Catalytic activity/Vol] 66 Int._Unit/L Normal 21-98 [facility] Comment on above: Performed By: #### 2 [id number] #### [facility] [address] [place] [address] ALT No additional P-5'-P [Catalytic activity/Vol] 16 Int._Unit/L Normal 6-46 [facility] Comment on above: Performed By: #### 2 [id number] #### [facility] [address] [place] [address] AST [Catalytic activity/Vol] 15 Int._Unit/L Normal 5-43 [facility] Comment on above: Performed By: #### 2 [id number] #### [facility] [address] [place] [address] Bilirubin [Mass/Vol] 0.3 mg/dL Normal 0.0-1.1 [facility] Comment on above: Performed By: #### 2 [id number] #### [facility] [address] [place] [address] Bilirubin.direct [Mass/Vol] 0.0 mg/dL Normal 0.0-0.4 [facility] Comment on above: Performed By: #### 2 [id number] #### [facility] [address] [place] [address] Bilirubin.indirect [Mass or moles/Vol] 0.3 mg/dL Normal 0.1-0.9 [facility] Comment on above: Performed By: #### 2 [id number] #### [facility] [address] [place] [address] Globulin (S) [Mass/Vol] 3.0 g/dL Normal 1.4-4.0 [facility] Comment on above: Performed By: #### 2 [id number] #### [facility] [address] [place] [address] Protein [Mass/Vol] 7.8 g/dL Normal 6.0-7.8 [facility] Comment on above: Performed By: #### 2 [id number] #### [facility] [address] [place] [address] Lipase Levelon 09-28-2023 Lipase [Catalytic activity/Vol] 26 U/L Normal 13-58 [facility] Comment on above: Performed By: #### 2 [id number] #### [facility] [address] [place] [address] Patient Educationon 09-28-19 24 Patient Education Cardiovascular [...] Keep all follow-up visits. Medicines ? Take ypsu-nvc-truugav and prescription medicines only as told by [...] For m (more content not included)... Normal [facility] RAD - Preliminary Cat Scan R eporton 09-28-2023 RAD - Preliminary Cat Scan Report [id number]#[id number] Normal [facility] SEROLOGYOrdered By: Amanda Siegel on 09-28-2023 Beta HCG ( test) Ql Negative (09/28/23 6:59 PM) Normal [facility] Man Sero UA with Cult Rflxon 09-28-19 Bilirubin Ql (U) Negative Normal Negative [facility] Comment on above: Performed By: #### 4 [id number] ####[facility] [address] [place] [address] Clarity (U) Clear Normal Clear [facility] Comment on above: Performed By: #### 4 [id number] ####[facility] [address] [place] [address] Color (U) Colorless Abnormal Yellow [facility] Comment on above: Result Comment: Micr oscopic readings are only performed on those samples that meet specific criteria set forth by [facility]. Performed By: #### 4 [id number] ####[facility] [address] [place] [address] Glucose Ql (U) Negative Normal Negative [facility] Comment on above: Performed By: #### 4 [id number] ####[facility] [address] [place] [address] Hemoglobin Auto test strip (U) [Mass/Vol] Negative Normal Negative [facility] Comment on above: Performed By: #### 4 [id number] ####[address] [address] Ketones Auto test strip Ql (U) Negative Normal Negative [facility] Comment on above: Performed By: #### 4 [id number] ####[address] [address] Leukocyte esterase Auto test strip Ql (U) Negative Normal Negative [facility] Comment on above: Performed By: #### 4 [id number] ####[address] [address] Nitrite Auto test strip Ql (U) Negative Normal Negative [facility] Comment on above: Performed By: #### 4 [id number] ####[address] [address] pH (U) 7.0 [pH] Invalid Interpretation Code 5.0-9.0 [facility] Comment on above: Performed By: #### 4 [id number] ####[address] [address] Protein Ql (U) Negative Normal Negative [facility] Comment on above: Performed By: #### 4 [id number] ####[address] [address] Specific gravity (U) [Rel density] 1.003 Invalid Interpretation Code 1.005-1.03 0 [facility] Comment on above: Performed By: #### 4 [id number] ####[address] [address] Urobilinogen (U) [Mass/Vol] Negative Normal Negative [facility] Comment on above: Performed By: #### 4 [id number] ####[address] [address] Type of Urine collection method Clean Catch Normal [facility] Comment on above: Performed By: #### 4 [id number] ####[facility] [address] [place] [address] URINALYSISOrdered By: SYSTEM SYSTEM on 09-28-2023 Bilirubin Ql (U) Negative Normal Negativemg /dL [facility] UA Auto SS Clarity (U) Clear (09/28/23 7:35 PM) Normal Clear [facility] UA Auto SS Color (U) Colorless 1 *ABN* (09/28/23 7:35 PM) Invalid Interpretation Code Yellow [facility] UA Auto SS Comment on above: Interpretive Data: M icroscopic readings are only performed on those samples that meet specific criteria set forth by [facility]. Glucose Ql (U) Negative Normal Negativemg /dL [facility] UA Auto SS Hemoglobin Auto test strip (U) [Mass/Vol] Negative Normal Negativemg /dL [facility] UA Auto SS Ketones Auto test strip Ql (U) Negative Normal Negativemg /dL [facility] UA Auto SS Leukocyte esterase Auto test strip Ql (U) Negative Normal NegativeLe u/uL [facility] UA Auto SS Nitrite Auto test strip Ql (U) Negative Normal Negativemg /dL [facility] UA Auto SS pH (U) 7.0 *NA* (09/28/23 7:35 PM) Invalid Interpretation Code 5.0 - 9.0 [facility] UA Auto SS Protein Ql (U) Negative Normal Negativemg /dL [facility] UA Auto SS Specific gravity (U) [Rel density] 1.003 *NA* (09/28/23 7:35 PM) Invalid Interpretation Code 1.005 - 1.030 [facility] UA Auto SS Urobilinogen (U) [Mass/Vol] Negative Normal Negativemg /dL FT UA Auto SS URINALYSISOrdered By: Bijan Miramontes on 09-28-2023 UA Spec Desc Clean Catch (09/28/23 7:35 PM) Normal [facility] UA Auto SS Work Phone: eGFRon 09-28-2023 eGFR 84 mL/min/1.73 m2 Normal >=59 [facility] Comment on above: Order Comment: Order added by Discern Expert. Performed By: #### 1 [id number] #### [facility] [address] [place] [address] Ambulatory Visit Summaryon 0 08-03-2023 Ambulatory Visit Summary MADHU RENDON :1985 Visit [...] (Vitamin D) fluticasone nasal (Flonase 0.05 mg/inh [place]) metformin (MetFORMIN (Eqv-Glucophage XR) 500 mg oral [...] PED When: In 4 months Where: [address] [facility], [place] [address]- You Need to Complete the Following HgbA1c, [...] Unchanged fluticasone nasal (Flonase 0.05 mg/ inh [place]) 2 Sprays Nasal Inhalation Every day each [...] Spontaneous miscarriage Suspected COVID-19 virus infection Vaginal alia Patient Survey You may receive a survey [...] mile (more content not included)... Normal [facility] Family Medicine Office/Clini c Noteon 08-03-2023 Family [...] comfortable with plan. PNMV Ordered: A1c POC 31381 Total time spent preparing the chart, conducting [...] FAAFP, FAM, PED In [address] [place] [address]- Additional Instructions: Patient Education Exercising to Lose Weight Problem Lis (more content not included)... Normal [facility] Comment on above: Result Comment: [...] your health care provider or diet and collections specialist (dietitian). This may include: ? Eating [...] is e (more content not included)... Normal [facility] Patient Educationon 06-21-19 Patient Education Endocrinology Blood [...] following in (more content not included)... Normal [facility] Lab Reportson 06-20-2023 Lab Reports [id number] [facility] Consultation Noteon 06-19-19 Consultation Note [id number] [facility] Ambulatory Visit Summaryon 0 05-25-2023 Ambulatory Visit Summary JUSTICEMADHU REYNOLDS :1985 Visit Date:05/25/2023 Ambulatory Visit Instructions Your [...] EDT With: Evans CASAS DO, FAAFP Where: [facility] Normal [facility] Family Medicine Office/Clini c Noteon [...] Benadryl. 2. Dyshidrotic eczema (L30.1: Dyshidrosis [pompholyx]) Vyzm-sug-eajzzvh hydrocortisone cream 1% or 2.5% as directed. [...] Evans CASAS DO, FAAFP, FAM, PED In [address] [facility], [place] [address]- Additional Instructions: Patient Education Eustachian Tube Dysfunction Dyshidrotic Eczema Allergies, Tadeo (more content not included)... Normal [facility] Comment on above: Result Comment: [...] ears completely after. General instructions ? Take xvcd-lho-kcixhvy and prescription medicines only as told by [...] treated w (more content not included)... Normal [facility] C Urineon 05-03-2023 Bacteria identified Cx Nom (U) Microbiology PROCEDURE: Urine Culture [R1] SOURCE: U Random BODY SITE: COLLECTED DATE/TIME: 05/01/2023 18:00 EST RECEIVED DATE/TIME: 05/01/2023 18:08 EST START DATE/TIME: 05/01/2023 18:08 EST FREE TEXT SOURCE: PRAVEEN RESENDEZ FAAFP, Evans CASAS DO, FAAFP, Evans Tony FINAL REPORTS Final Report [] Verified Date/Time: 05/03/2023 07:00 EST <10,000 cfu/ml Mixed skin contaminants Performing Locations R1: This test was performed at: [facility], [address] [place] [address], [facility]- , , Normal [facility] Comment on above: Performed By: #### 2 [id number] ####[address] [address] Consent for Treatmenton Consent for Treatment [id number]#[id number] Normal [facility] Urinalysison 05-01-2023 Bacteria LM Ql (Urine sed) TRACE Normal Trace [facility] Comment on above: Performed By: #### 1 [id number] ####[address] [address] Bilirubin Ql (U) Negative Normal Negative [facility] Comment on above: Performed By: #### 1 [id number] ####[address] [address] Clarity (U) CLOUDY Abnormal Clear [facility] Comment on above: Performed By: #### 1 [id number] ####[facility] [address] [place] [address] Color (U) YELLOW Normal Yellow [facility] Comment on above: Performed By: #### 1 [id number] ####[address] [address] Epithelial cells.squamous LM.HPF (Urine sed) [#/Area] /[HPF] Normal 0-2 [facility] Comment on above: Performed By: #### 1 [id number] ####[address] [address] Glucose Test strip (U) [Mass/Vol] Negative Normal Negative [facility] Comment on above: Performed By: #### 1 [id number] ####[address] [address] Hemoglobin Ql (U) Negative Normal Negative [facility] Comment on above: Performed By: #### 1 [id number] ####[address] [address] Ketones (U) [Mass/Vol] Negative Normal Negative [facility] Comment on above: Performed By: #### 1 [id number] ####[address] [address] Onward.plasma/Lithiu m.RBC (Bld) [Mass ratio] 0-3 Normal 0-3 [facility] Comment on above: Performed By: #### 1 [id number] ####[address] [address] Nitrite Ql (U) Negative Normal Negative [facility] Comment on above: Performed By: #### 1 [id number] ####[address] [address] pH (U) 6.0 [pH] Invalid Interpretation Code 5.0-9.0 [facility] Comment on above: Performed By: #### 1 [id number] ####[address] [address] Protein (U) [Mass/Vol] Negative Normal Negative [facility] Comment on above: Performed By: #### 1 [id number] ####[facility] [address] [place] [address] Specific gravity (U) [Rel density] <=1.005 Invalid Interpretation Code 1.005-1.03 0 [facility] Comment on above: Performed By: #### 1 [id number] ####[facility] [address] [place] [address] Type of Urine collection method Clean Catch Normal [facility] Comment on above: Performed By: #### 1 [id number] ####[facility] [address] [place] [address] Urobilinogen Qn (U) 0.2 {Nicole'U}/dL Normal 0.0-1.0 [facility] Comment on above: Performed By: #### 1 [id number] ####[facility] [address] [place] [address] WBC Auto Ql (U) TRACE Abnormal Negative [facility] Comment on above: Performed By: #### 1 [id number] ####[facility] [address] [place] [address] WBC LM.HPF (Urine sed) [#/Area] 0-5 Normal 0-5 [facility] Comment on above: Performed By: #### 1 [id number] ####[facility] [address] [place] [address] Ambulatory Visit Summaryon Ambulatory Visit Summary MADHU RENDON :1985 Visit [...] EST With: Evans CASAS DO, FAAFP Where: [facility] Care Normal [facility] CHEMISTRYOrdered By: SYSTEM SYSTEM on [...] has been having diarrhea since Sunday before [place], nonbloody with some associated stomach pain. She has been having some burning in her nipples when she is breast-feeding and wants her thyroid checked. Muscle aches and pains like flu Still breast feeding. No loss of taste nor smell. [id number] while taking Glucophage XR 500 mg p.o. [...] symptoms? Vision problems? No Sexual dysfunction? No GI-Nausea/committing/bloati ng? No Lightheadedness? No Paresthesias, Ulcerations or sores? [...] Push fluids and Tylenol and or ibuprofen ifzn-zgq-fwkppcr as directed. Patient does not appear ill [...] weight manag (more content not included)... Normal [facility] Comment on above: Result Comment: Elec tronically Signed By: PRAVEEN RESENDEZ FAAFP, Evans Tony\.br\Date and Time Signed: 04/27/23 12:53 EST Patient [...] activity plan? Your health care provider or pmp certified project manager can help you make a plan for [...] stroke). Where to find more information ? [place] [employer]: www.diabetes.org Summary ? Exercising regularly is important for overall health, especially for people who have diabetes mellitus. ? Exercising has many health benefits. It increases muscle strength and bone density and reduces body fat and stress. It also lowers and controls blood glucose. ? Your health care provider or pmp certified project manager can help you make an activity plan [...] provider. Document Revised: 01/12/2020 Document Reviewed: 01/12/2020 [employer] Patient Education ? 2022 [employer] Preventing Hypoglycemia Hypoglycemia occurs when the level of sugar (glucose) in the blood is too low. Hypoglycemia can happen in people who do or do not have diabetes (diabetes (more content not included)... Normal [facility] TSHon 04-27-2023 TSH Qn 4.04 m[IU]/L Normal 0.34-5.60 [facility] Comment on above: Performed By: #### 2 [id number] ####[facility] [address] [place] [address] Ambulatory Visit Summaryon 1 Ambulatory Visit Summary [...] Follow Up with Evans CASAS DO, FAAFP, [facility], PED When: In 2 months Where: [address] [facility], [place] [address]- You Need to Complete the Following HgbA1c, [...] Spontaneous miscarriage Suspected COVID-19 virus infection Vaginal alia Normal [facility] Family Medicine Office/Clini c Noteon 02-15-2023 Family Medicine Office/Clinic Note Chief Complaint States since Sunday evening her right ear is draining and is a little painful History of Present Illness Bit Gatherer draining since Sunday evening and a little [...] is drainage and/or pain as directed Ordered: ciprofloxacin-dexamethasone otic, 4 drop(s), Otic, BID for 7 day(s), 7.5 mL, Refill(s) 0, Only use if drainage or pain of ear shake well before using, [facility] 1985, 168, cm, 02/15/23 9:49:00 EDT, [...] in , unspecified control) Followed per her bathroom tiling professional. She is continuing 500 mg of metformin [...] PRAVEEN Johnson (more content not included)... Normal [facility] Comment on above: Result Comment: Elec tronically Signed By: PRAVEEN RESENDEZ [facility], Evans Tony\.br\Date and Time Signed: 02/15/23 10:13 [...] cannot use soap and water, use hand elevated motorman. 2. Make sure your ears are clean [...] cannot use soap and water, use hand elevated motorman. Follow these instructions at home: ? Use [...] provider. Document Revised: 02/11/2020 Document Reviewed: 02/11/2020 [employer] Patient Education ? 2022 [employer]. Infectious Disease Otitis Externa Otitis externa is [...] you start to feel better. ? Take tyln-jbd-mjbfhaq and prescription medicines only as told by your doctor. ? Avoid getting water in your ears as told by your doctor. You may be told to avoid swimming or water sports for a few days. ? Keep all follow-up visits. How is this prevented? ? Keep your ears dry. Use the corner o (more content not included)... Normal [facility] Patient Educationon 12-23-19 23 Patient Education Immunology Fatigue If you have [...] these instructions at home: Medicines ? Take vytx-gvx-kfyghgj and prescription medicines only as told by [...] the National Suicide Prevention Lifeline at or 876. This is open 24 hours a day. ? Text the Crisis Text Line at 748763. Summary ? If you have fatigue, you [...] provider. Document Revised: 02/06/2022 Document Reviewed: 02/06/2022 [employer] Patient Education ? 2022 [employer] Urology Urodynamic Testing Urodynamic tests are [...] urine (inco (more content not included)... Normal [facility] CHEMISTRYOrdered By: SYSTEM SYSTEM on 09-26-2022 Free T4 [Mass/Vol] 0.58 ng/dL Normal 0.58 - 1.64 ng/dL [facility] Remisol TSH Qn 3.35 m[IU]/L Normal 0.34 - 5.60 mcIU/mL [facility] Remisol Albumin [Mass/Vol] 4.5 g/dL Normal 3.3 - 5.0 gm/dL [facility] Remisol Albumin/Globulin [Mass ratio] 1.4 {ratio} Normal 1.1 - 2.2 [facility] Remisol ALP [Catalytic activity/Vol] 62 [iU]/d Normal 21 - 98 Int._Unit/ L [facility] Remisol ALT No additional P-5'-P [Catalytic activity/Vol] 27 [iU]/d Normal 6 - 46 Int._Unit/ L [facility] Remisol Anion gap [Moles/Vol] 13 mmol/L Normal 6 - 16 mEq/L [facility] Remisol AST [Catalytic activity/Vol] 21 [iU]/d Normal 5 - 43 Int._Unit/ L [facility] Remisol Bilirubin [Mass/Vol] 0.3 mg/dL Normal [...] Folate [Mass/Vol] 13.5 ng/mL Normal >=6.7ng/mL [facility] Remisol GFR/1.73 sq M.predicted among non-blacks MDRD (S/P/Bld) [Vol rate/Area] 85 mL/min/1.73 m2 Normal >=59mL/min /1.73 m2 [facility] Chem S Globulin (S) [Mass/Vol] [...] Normal 0.0 - 8.0 % [facility] HemeAutoSS Eosinophils/Leukocyte s Auto (Bld) [Pure # fraction] 0.1 E9/L Normal 0.0 - 0.5 E9/L [facility] HemeAutoSS Lymphocytes/100 WBC (Bld) 42.4 % Normal 14.0 - 50.0 % [facility] HemeAutoSS Lymphocytes/Leukocyte s Auto (Bld) [Pure # fraction] 3.4 E9/L Normal 1.0 - 4.0 E9/L [facility] HemeAutoSS Monocytes/100 WBC (Bld) 8.0 % Normal 4.0 - 14.0 % [facility] HemeAutoSS Monocytes/Leukocytes Auto (Bld) [Pure # fraction] 0.6 E9/L Normal 0.2 - 1.0 E9/L [facility] HemeAutoSS Neutrophils/100 WBC (Bld) 47.9 % Normal 36.0 - 75.0 % [facility] HemeAutoSS Neutrophils/Leukocyte s Auto (Bld) [Pure # fraction] 3.8 E9/L [...] T4 [Mass/Vol] 0.58 ng/dL Normal 0.58 - 1.64 ng/dL [facility] Rem[facility] TSH Qn 3.10 m[IU]/L Normal 0.34 - 5.60 mcIU/mL [facility] CHEMISTRYOrdered By: Mehran German on 09-05-2022 HbA1c (Bld) [Mass fraction] 5.9 % Normal <=5.9% [facility] ChemAutoSS CHEMISTRYOrdered By: SYSTEM SYSTEM on 08-07-2022 Free T4 [Mass/Vol] 0.71 ng/dL Normal 0.58 - 1.64 ng/dL [facility] Remisol TSH Qn 3.77 m[IU]/L Normal 0.34 - 5.60 mcIU/mL [facility] Remisol CBC AUTO DIFFon 05-09-2022 BASO # 0.0 103/ul Normal 0.0-0.1 [facility] [place] Comment on above: Performed By: #### H IV12 #### [facility] [address] [address] [address] Edward Gill Basophils/100 WBC (Bld) 0.4 % Normal 0.2-2.0 [facility] [place] Comment on above: Performed By: #### H IV12 #### [facility] [address] [address] [address] Edward Gill EO # 0.1 103/ul Normal 0.0-0.7 [facility] [place] Comment on above: Performed By: #### H IV12 #### [facility] [address] [address] [address] Edward Gill Eosinophils/100 WBC (Bld) 1.3 % Normal 0.9-7.0 [facility] Comment on above: Performed By: #### H IV12 #### [facility] [address] [address] [address] Edward Gill Erythrocyte distribution width (RBC) [Ratio] 16.6 % Critically high 11.0-15.0 [facility] [place] Comment on above: Performed By: #### H IV12 #### [facility] [address] [address] [address] Edward Gill Hematocrit (Bld) [Volume fraction] 30.2 % Critically low 36.0-48.0 [facility] [place] Comment on above: Performed By: #### H IV12 #### [facility] [address] [place] [address] Dr. Edward Gill Hemoglobin (Bld) [Mass/Vol] 10.5 g/dL Critically low 12.0-16.0 [facility] [place] Comment on above: Performed By: #### H IV12 #### [facility] [address] [place] [address] Dr. Edward Gill IG # 0.04 10e3/ul Critically high 0.00-0.03 [facility] [place] Comment on above: Performed By: #### H IV12 #### [facility] [address] [place] [address] Dr. Edward Gill IG % 0.4 % Normal 0.0-0.5 [facility] [place] Comment on above: Performed By: #### H IV12 #### [facility] [address] [place] [address] Dr. Edward Gill LYMPH # 3.1 103/ul Normal 1.2-3.8 [facility] [place] Comment on above: Performed By: #### H IV12 #### [facility] [address] [place] [address] Dr. Edward Gill Lymphocytes/100 WBC (Bld) 34.2 % Normal 20.5-60.0 [facility] [place] Comment on above: Performed By: #### H IV12 #### [facility] [address] [place] [address] Dr. Edward Gill MANUAL DIFF REQ NO Normal [facility] [place] Comment on above: Performed By: #### H IV12 #### [facility] [address] [place] [address] Dr. Edward Gill MCH (RBC) [Entitic mass] 30.3 pg Normal 26.7-34.0 [facility] [place] Comment on above: Performed By: #### H IV12 #### [facility] [address] [place] [address] Dr. Edward Gill MCHC (RBC) [Mass/Vol] 34.8 g/dL Normal 29.9-35.2 [facility] [place] Comment on above: Performed By: #### H IV12 #### [facility] [address] [address] [address] Edward Gill MCV (RBC) [Entitic vol] 87.0 fL Normal 81.0-99.0 [facility] [place] Comment on above: Performed By: #### H IV12 #### [facility] [address] [address] [address] Edward Gill MONO # 0.7 103/ul Normal 0.3-0.8 [facility] [place] Comment on above: Performed By: #### H IV12 #### [facility] [address] [address] [address] Edward Gill Monocytes/100 WBC (Bld) 7.5 % Normal 1.7-12.0 [facility] [place] Comment on above: Performed By: #### H IV12 #### [facility] [address] [place] [address] Dr. Edward Gill NEUT # 5.0 103/ul Normal 1.4-6.5 [facility] [place] Comment on above: Performed By: #### H IV12 #### [facility] [address] [place] [address] Dr. Edward Gill Neutrophils/100 WBC (Bld) 56.2 % Normal 43.0-75.0 [facility] [place] Comment on above: Performed By: #### H IV12 #### [facility] [address] [address] [address] Edward Gill Platelet mean volume (Bld) [Entitic vol] 9.8 fL Normal 9.5-13.5 [facility] [place] Comment on above: Performed By: #### H IV12 #### [facility] [address] [address] [address] Edward Gill PLT 238 103/ul Normal 150-450 [facility] Comment on above: Performed By: #### H IV12 #### [facility] [address] [place] [address] Dr. Edward Gill RBC 3.47 106/ul Critically low 4.20-5.40 [facility] [place] Comment on above: Performed By: #### H IV12 #### [facility] [address] [address] [address] Edward Gill WBC 9.0 103/ul Normal 4.0-11.0 [facility] [place] Comment on above: Performed By: #### H IV12 #### [facility] [address] [place] [address] Dr. Edward Gill SCREENon 05-09-2022 SCREEN Negative Normal [facility] [place] Comment on above: Performed By: #### F ETSCRN #### [facility] [address] [place] [address] Dr. Edward Gill DIRECT COOMBSon 05-08-2022 DIRECT ALEJANDRA Negative Normal [facility] [place] Comment on above: Performed By: #### D IRCMB #### [facility] [address] [place] [address] Dr. Edward Gill POINT OF CARE GLUCOSEon Glucose [Mass/Vol] 117 mg/dL Critically high 74-106 [facility] Comment on above: Performed By: #### P OCGLUC ####[facility] [address] [address]Dr. Edward Gill TYPE AND SCREENon 05-08-2022 TYPE AND SCREEN Negative Normal [facility] [place] Comment on above: Performed By: #### T NS #### [facility] [address] [place] [address] Dr. Edward Gill CBC AUTO DIFFon 05-07-2022 BASO # 0.0 103/ul Normal 0.0-0.1 [facility] [place] Comment on above: Performed By: #### H IV12 #### [facility] [address] [place] [address] Dr. Edward Gill Basophils/100 WBC (Bld) 0.2 % Normal 0.2-2.0 [facility] [place] Comment on above: Performed By: #### H IV12 #### [facility] [address] [place] [address] Dr. Edward Gill EO # 0.0 103/ul Normal 0.0-0.7 [facility] [place] Comment on above: Performed By: #### H IV12 #### [facility] [address] [place] [address] Dr. Edward Gill Eosinophils/100 WBC (Bld) 0.5 % Critically low 0.9-7.0 [facility] [place] Comment on above: Performed By: #### H IV12 #### [facility] [address] [place] [address] Dr. Edward Gill Erythrocyte distribution width (RBC) [Ratio] 16.1 % Critically high 11.0-15.0 [facility] [place] Comment on above: Performed By: #### H IV12 #### [facility] [address] [place] [address] Dr. Edward Gill Hematocrit (Bld) [Volume fraction] 32.1 % Critically low 36.0-48.0 [facility] [place] Comment on above: Performed By: #### H IV12 #### [facility] [address] [place] [address] Dr. Edward Gill Hemoglobin (Bld) [Mass/Vol] 11.7 g/dL Critically low 12.0-16.0 [facility] [place] Comment on above: Performed By: #### H IV12 #### [facility] [address] [place] [address] Dr. Edward Gill IG # 0.04 10e3/ul Critically high 0.00-0.03 [facility] [place] Comment on above: Performed By: #### H IV12 #### [facility] [address] [place] [address] Dr. Edward Gill IG % 0.5 % Normal 0.0-0.5 [facility] [place] Comment on above: Performed By: #### H IV12 #### [facility] [address] [place] [address] Dr. Edward Gill LYMPH # 2.4 103/ul Normal 1.2-3.8 [facility] Comment on above: Performed By: #### H IV12 #### [facility] [address] [place] [address] Dr. Edward Gill Lymphocytes/100 WBC (Bld) 27.2 % Normal 20.5-60.0 [facility] [place] Comment on above: Performed By: #### H IV12 #### [facility] [address] [place] [address] Dr. Edward Gill MANUAL DIFF REQ NO Normal [facility] [place] Comment on above: Performed By: #### H IV12 #### [facility] [address] [place] [address] Dr. Edward Gill MCH (RBC) [Entitic mass] 30.0 pg Normal 26.7-34.0 [facility] [place] Comment on above: Performed By: #### H IV12 #### [facility] [address] [place] [address] Dr. Edward Gill MCHC (RBC) [Mass/Vol] 36.4 g/dL Critically high 29.9-35.2 [facility] [place] Comment on above: Performed By: #### H IV12 #### [facility] [address] [place] [address] Dr. Edward Gill MCV (RBC) [Entitic vol] 82.3 fL Normal 81.0-99.0 [facility] [place] Comment on above: Performed By: #### H IV12 #### [facility] [address] [place] [address] Dr. Edward Gill MONO # 0.7 103/ul Normal 0.3-0.8 [facility] [place] Comment on above: Performed By: #### H IV12 #### [facility] [address] [place] [address] Dr. Edward Gill Monocytes/100 WBC (Bld) 7.7 % Normal 1.7-12.0 [facility] [place] Comment on above: Performed By: #### H IV12 #### [facility] [address] [place] [address] Dr. Edward Gill NEUT # 5.5 103/ul Normal 1.4-6.5 [facility] [place] Comment on above: Performed By: #### H IV12 #### [facility] [address] [place] [address] Dr. Edward Gill Neutrophils/100 WBC (Bld) 63.9 % Normal 43.0-75.0 [facility] [place] Comment on above: Performed By: #### H IV12 #### [facility] [address] [address] [address] Edward Gill Platelet mean volume (Bld) [Entitic vol] 10.0 fL Normal 9.5-13.5 [facility] [place] Comment on above: Performed By: #### H IV12 #### [facility] [address] [address] [address] Edward Gill PLT 274 103/ul Normal 150-450 [facility] [place] Comment on above: Performed By: #### H IV12 #### [facility] [address] [address] [address] Edward Gill RBC 3.90 106/ul Critically low 4.20-5.40 [facility] [place] Comment on above: Performed By: #### H IV12 #### [facility] [address] [address] [address] Edward Gill WBC 8.7 103/ul Normal 4.0-11.0 [facility] [place] Comment on above: Performed By: #### H IV12 #### [facility] [address] [address] [address] Edward Gill Covid-19 PCR ([facility])on SARS-CoV-2 (COVID-19) RNA LELO+probe Ql (Unsp spec) Not detected Normal NOT DETECTED [facility] [place] Comment on above: Result Comment: When diagnostic [...] for this test is supported by the [place] of Health and Human Service's declaration that [...] used). Performed By: #### H IV12 #### [facility] [address] [address] [address] Edward Gill DRUG SCREEN RAPID (URINE)on 05-07-2022 AMP Negative Normal NEGATIVE [facility] Comment on above: Performed By: #### D RUGRPD ####[facility] [address] [address]Dr. Edward Gill BAR Negative Normal NEGATIVE [facility] Comment on above: Performed By: #### D RUGRPD ####[facility] [address] [address]Dr. Edward Gill BUP Negative Normal NEGATIVE [facility] Comment on above: Performed By: #### D RUGRPD ####[facility] [address] [address]Dr. Edward Gill BZO Negative Normal NEGATIVE [facility] Comment on above: Performed By: #### D RUGRPD ####[facility] [address] [address]Dr. Edward Gill [place] Negative Normal NEGATIVE [facility] Comment on above: Performed By: #### D RUGRPD ####[facility] [address] [address]Dr. Edward Gill CUT-OFFS SEE BELOW Normal [facility] Comment on above: Result Comment: AMP (Amphetamine): 500ng/mL, BAR (Barbituates): 200 ng/mL, BZO (Benzodiazepines): 150 ng/mL, BUP (Buprenorphine): 10 ng/mL, [place] (Cocaine): 150 ng/mL, mAMP (Methamphetamine): 500 ng/mL, MTD (Methadone): 200 ng/mL, OPI (Opiates): 100 ng/mL, OXY (Oxycodone): 100 ng/mL, PCP (Phencyclidine): 25 ng/mL, PPX (Propoxyphene): 300 ng/mL, THC (Cannabinoids): 50 ng/mL, TCA (Trycyclic Antidepressants): 300 ng/mL Performed By: #### D RUGRPD ####[facility] [address] [id number] Edward Gill DRUG CUT HEADER DRUG CLASS TEST SYST EM CUT-OFF CONCENTRATIONS ARE FOLLOWS: Normal [facility] Comment on above: Performed By: #### D RUGRPD ####[facility] [address] [id number]. Edward Gill mAMP Negative Normal NEGATIVE [facility] Comment on above: Performed By: #### D RUGRPD ####[facility] [address] [id number]. Edward Gill MTD Negative Normal NEGATIVE [facility] Comment on above: Performed By: #### D RUGRPD ####[facility] [address] [place], [place] [address]Dr. Edward Gill OPI Negative Normal NEGATIVE [facility] Comment on above: Performed By: #### D RUGRPD ####[facility] [address] [place], [place] [address]Dr. Alishalan Gill OXY Negative Normal NEGATIVE [facility] Comment on above: Performed By: #### D RUGRPD ####[facility] [address] [place], [place] [address]Dr. Edward Gill PCP Negative Normal NEGATIVE [facility] Comment on above: Performed By: #### D RUGRPD ####[facility] [address] [place], [place] [address]Dr. Edward Gill PPX Negative Normal NEGATIVE [facility] Comment on above: Performed By: #### D RUGRPD ####[facility] [address] [address]Dr. Edward Gill TCA Negative Normal NEGATIVE [facility] Comment on above: Performed By: #### D RUGRPD ####[facility] [address] [place], [place] [address]Dr. Edward Gill THC Negative Normal NEGATIVE [facility] Comment on above: Performed By: #### D RUGRPD ####[facility] [address] [address]Dr. Edward Gill US PREG BIOPHY W NON [...] HUMERA KIM Date: 2022-05-06 19:05 Normal [facility] US PREG BIOPHY W NON [...] ANGIE GALDAMEZ Date: 2022-05-01 16:16 Normal [facility] GROUP B STREP CULTUREon 03-31 [...] R F Vancomycin =0.5 S F Normal [facility] [place] Comment on above: Performed By: #### G BSCX ####[facility] [address] [place], [place] [address]Mz. Edward Gill US PREG BIOPHY W NON [...] by: HUMERA KIM Date: 2022-04-17 17:08 Normal [facility] US PREG GROWTHon 04-17-2022 US PREG GROWTH [...] by: HUMERA KIM Date: 2022-04-17 16:49 Normal [facility] US PREG BIOPHY W NON STRESSo n [...] by: HUMERA KIM Date: 2022-04-12 08:56 Normal [facility] GLUCOSE, BLOOD (POC)on 04-05 Glucose [Mass/Vol] 106 mg/dL Abnormal 74 - 99 mg/dL [facility] US PREG BIOPHY W NON STRESSo [...] HUMERA KIM Date: 2022-04-01 16:08 Normal [facility] US PREG BIOPHY W NON [...] by: HUMERA KIM Date: 2022-03-27 08:54 Normal [facility] [place] US PREG GROWTHon 03-17-2022 US PREG GROWTH [...] by: HUMERA KIM Date: 2022-03-17 06:04 Normal [facility] [place] TSHon 02-25-2022 TSH 2.586 uIU/mL Normal 0.358-3.74 0 [facility] [place] Comment on above: Performed By: #### H IV12 #### [facility] [address] [address] [address] Edward Gill TYPE AND SCREENon 02-25-2022 TYPE AND SCREEN Negative Normal [facility] [place] Comment on above: Performed By: #### T NS #### [facility] [address] [place] [address] Dr. Edward Gill PAP ACOG PANEL 2: 30 to 65on 02-21-2022 . . Normal [facility] [place] Comment on above: Result Comment: Perf ormed at: WB Performed By: #### [id number] ####[facility] [address] [address]Dr. Edward Gill Age Gdln ACOG Testing 30-65 Normal [facility] [place] Comment on above: Performed By: #### [id number] ####[facility] [address] [address]Dr. Edward Gill DIAGNOSIS: Comment Normal [facility] [place] Comment on above: Result Comment: NEGA TIVE FOR INTRAEPITHELIAL LESION OR MALIGNANCY. Performed at: WB Performed By: #### [id number] ####[facility] [address] [address]Dr. Edward Gill HPV Aptima Negative Normal Negative [facility] [place] Comment on above: Result Comment: This nucleic acid amplification test detects fourteen high-risk HPV types (16,18,31,33,35,39,45,51,52,56,58,59,66,68) without differentiation. Performed at: =G Performed By: #### [id number] ####[address] [address]DrLazara Gill Methodology: Comment Normal [facility] [place] Comment on above: Result Comment: This liquid based ThinPrep(R) pap test was screened with the use of an image guided system. Performed at: WB Performed By: #### [id number] ####[address] [address]DrLazara Gill Note: Comment Normal [facility] [place] Comment on above: Result Comment: The Pap smear is a screening test designed to aid in the detection of premalignant and malignant conditions of the uterine cervix. It is not a diagnostic procedure and should not be used as the sole means of detecting cervical cancer. Both false-positive and false-negative reports do occur. . Performed at: WB Performed By: #### [id number] ####[address] [address]DrLazara Gill Performed by: Comment Normal [facility] [place] Comment on above: Result Comment: Zenaida Diop, Mechanical Laboratory Technician (ASCP) Performed at: WB Performed By: #### [id number] ####[facility] [address] [place], [place] [address]DrLazara Gill Specimen adequacy: Comment Normal [facility] [place] Comment on above: Result Comment: Sati sfactory for evaluation. No endocervical component is identified. Performed at: WB Performed By: #### [id number] ####[facility] [address] [place], [place] [address]DrLazara Gill CHLAMYDIA/GONOCOCCUS LELO (SW AB/URINE/PAPon 02-16-2022 Chlamydia trachomatis, LELO Negative Normal Negative [facility] Comment on above: Performed By: #### C T/NGNA ####[facility] [address] [id number]. Edward Gill Neisseria gonorrhoeae, LELO Negative Normal Negative [facility] [place] Comment on above: Performed By: #### C T/NGNA ####[facility] [address] [address]Dr. Edward Gill VAGINITIS/VAGINOSIS DNA PROB [place] 02-16-2022 Alia species Negative Normal Negative [facility] [place] Comment on above: Performed By: #### V AGINT ####[facility] [address] [id number]. Edward Gill Gardnerella vaginalis Negative Normal Negative [facility] [place] Comment on above: Performed By: #### V AGINT ####[facility] [address] [address]Dr. Edward Gill Trichomonas vaginalis Negative Normal Negative [facility] [facility] Comment on above: Performed By: #### V AGINT ####[facility] [address] [address]Dr. Edward Gill TSHon 01-24-2022 TSH 1.536 uIU/mL Normal 0.358-3.74 0 [facility] Comment on above: Performed By: #### T SH ####[facility] [address] [place], [place] [address]Dr. Edward Gill GLUCOSE - 1HRon 01-07-2022 Glucose [Mass/Vol] 160 mg/dL Critically high 74-106 T [facility] Comment on above: Performed By: #### G LU1HR ####[facility] [address] [id number]. Edward Gill TSHon 12-28-2021 TSH 1.899 uIU/mL Normal 0.358-3.74 0 [facility] Comment on above: Performed By: #### H IV12 #### [facility] [id number] Edward Gill AFP, Maternalon 11-24-2021 Determined by Ultrasound Normal [facility] Comment on above: Performed By: #### A AFPM #### [address] [address] Tube Cleaning Operator: Pancho Cano MD [address] [id number] Tube Cleaning Operator: Zhang Bledsoe MD Due Date SEE NOTE Normal [facility] Comment on above: Result Comment: Resu lts for Estimated Due Date: 05 13 22 Performed By: #### A AFPM #### [address] [address] Tube Cleaning Operator: Pancho Cano MD [address] [address] Tube Cleaning Operator: Zhang Bledsoe MD Family History No [facility] Comment on above: Performed By: #### A AFPM #### [address] [address] Tube Cleaning Operator: Pancho Cano MD [address] [phone] Tube Cleaning Operator: Zhang Bledsoe MD Gestat Age (exact) 15 wks, 2 days Normal [facility] Comment on above: Performed By: #### A AFPM #### [address] [address] Tube Cleaning Operator: Pancho Cano MD [address] [phone] Tube Cleaning Operator: Zhang Bledsoe MD Ins Req Matern Diab No Normal [facility] Comment on above: Performed By: #### A AFPM #### [address] [address] Tube Cleaning Operator: Pancho Cano MD [address] [phone] Tube Cleaning Operator: Zhang Bledsoe MD Interpretation Screen Neg Normal [facility] Comment on above: Result Comment: (NOT E) INTERPRETATION: SCREEN NEGATIVE for open spina bifida Neural Tube Defects (NTD) Negative Pre-Test Post-Test Cutoff Neural Tube Defects Risks 1:1030 1:2690 1:250 Comments: The risk of an open neural tube defect is less than the screening cut-off. This test was developed and its performance characteristics determined by [employer]. It has not been cleared or approved by the [place] Food and Drug Administration. This test was performed in a CLIA certified laboratory and is intended for clinical purposes. Performed By: #### A AFPM #### [address] [address] Tube Cleaning Operator: Pancho Cano MD [address] [address] Tube Cleaning Operator: Zhang Bledsoe MD [age] [facility] Comment on above: Performed By: #### A AFPM #### [address] [address] Tube Cleaning Operator: Pancho Cano MD [address] [phone] Tube Cleaning Operator: Zhang Bledsoe MD Maternal Race Nonblack [facility] Comment on above: Performed By: #### A AFPM #### [address] [address] Tube Cleaning Operator: Pancho Cano MD [address] [phone] Tube Cleaning Operator: Zhang Bledsoe MD Maternal Weight 228.0 lbs. [facility] Comment on above: Performed By: #### A AFPM #### [address] [address] Tube Cleaning Operator: Pancho Cano MD [address] [address] Tube Cleaning Operator: Zhang Bledsoe MD MoM for AFP 1.52 [facility] Comment on above: Performed By: #### A AFPM #### [address] [address] Tube Cleaning Operator: Pancho Cano MD [address] [address] Tube Cleaning Operator: Zhang Bledsoe MD Number of Fetuses Joe Normal [facility] Comment on above: Performed By: #### A AFPM #### [address] [address] Tube Cleaning Operator: Pancho Cano MD [facility] [address] [place] [address] Tube Cleaning Operator: Zhang Bledsoe MD Patient's AFP 35 ng/mL Normal [facility] Comment on above: Performed By: #### A AFPM #### [address] [address] Tube Cleaning Operator: Pancho Cano MD [address] [address] Tube Cleaning Operator: Zhang Bledsoe MD Smoking No Normal [facility] Comment on above: Performed By: #### A AFPM #### [address] [address] Tube Cleaning Operator: Pancho Cano MD [address] [address] Tube Cleaning Operator: Zhang Bledsoe MD Specimen See Note Normal [facility] Comment on above: Result Comment: (NOT E) Initial sample Performed by [employer], [address] [place], [place] [id number] www.[employer], Yayo Moncada MD, PHD, Lab. Director Performed By: #### A AFPM #### [address] [address] Tube Cleaning Operator: Pancho Cano MD [address] [address] Tube Cleaning Operator: Zhang Bledsoe MD AFP, Maternalon 11-22-2021 Current Smoking NO [facility] Comment on above: Performed By: #### A AFPM #### [address] [address] Tube Cleaning Operator: Pancho Cano MD [facility] [address] [place] [address] Tube Cleaning Operator: Zhang Bledsoe MD [facility] Comment on above: Performed By: #### A AFPM #### [address] [address] Tube Cleaning Operator: Pancho Cano MD [facility] [address] [place], [place] [phone] Tube Cleaning Operator: Zhang Bledsoe MD Diabetic NO [facility] Comment on above: Performed By: #### A AFPM #### [address] [address] Tube Cleaning Operator: Pancho Cano MD [facility] [address] [place] [address] Tube Cleaning Operator: Zhang Bledsoe MD Donor Egg INFORMATION NOT PROVIDED [facility] Comment on above: Performed By: #### A AFPM #### [address] [address] Tube Cleaning Operator: Pancho Cano MD [facility] [address] [place], [place] [id number] Tube Cleaning Operator: Zhang Bledsoe MD Estimated Due Date [id number] [facility] Comment on above: Performed By: #### A AFPM #### [address] [address] Tube Cleaning Operator: aPncho Cano MD [facility] [address] [place] [address] Tube Cleaning Operator: Zhang Bledsoe MD Family History Negative [facility] Comment on above: Performed By: #### A AFPM #### [address] [address] Tube Cleaning Operator: Pancho Cano MD [address] [address] Tube Cleaning Operator: Zhang Bledsoe MD In Vitro Fertalizat INFORMATION NOT PROVIDED [facility] Comment on above: Performed By: #### A AFPM #### [address] [address] Tube Cleaning Operator: Pancho Cano MD [address] [address] Tube Cleaning Operator: Zhang Bledsoe MD LMP date [id number] [facility] Comment on above: Performed By: #### A AFPM #### [address] [address] Tube Cleaning Operator: Pancho Cano MD [facility] [address] [place] [address] Tube Cleaning Operator: Zhang Bledsoe MD Maternal date [facility] Comment on above: Performed By: #### A AFPM #### [address] [address] Tube Cleaning Operator: Pancho Cano MD [address] [address] Tube Cleaning Operator: Zhang Bledsoe MD Maternal Weight 228 [facility] Comment on above: Performed By: #### A AFPM #### [address] [address] Tube Cleaning Operator: Pancho Cano MD [facility] [address] [place] [address] Tube Cleaning Operator: Zhang Bledsoe MD Monochorionic Twins NO [facility] Comment on above: Performed By: #### A AFPM #### [address] [address] Tube Cleaning Operator: Pancho Cano MD [facility] [address] [place] [address] Tube Cleaning Operator: Zhang Bledsoe MD Patient Weight Units LBS Normal [facility] Comment on above: Performed By: #### A AFPM #### [address] [address] Tube Cleaning Operator: Pancho Cano MD [facility] [address] [place] [address] Tube Cleaning Operator: Zhang Bledsoe MD Race (Maternal) WHITE Normal [facility] Comment on above: Performed By: #### A AFPM #### [address] [address] Tube Cleaning Operator: Pancho Cano MD [address] [address] Tube Cleaning Operator: Zhang Bledsoe MD Repeat Specimen INFORMATION NOT PROVIDED [facility] Comment on above: Performed By: #### A AFPM #### [address] [address] Tube Cleaning Operator: Pancho Cano MD [address] [phone] Tube Cleaning Operator: Zhang Bledsoe MD Valproic/Carbamazep INFORMATION NOT PROVIDED [facility] Comment on above: Performed By: #### A AFPM #### [address] [address] Tube Cleaning Operator: Pancho Cano MD [facility] [address] [place] [address] Tube Cleaning Operator: Zhang Bledsoe MD [facility] 07-2 Send Out Report FWD TO [facility] TR [phone] [facility] Test Name DILLON [facility] Miscellaneouson 11-21-2021 Send Out Report FWD TO [facility] TRK [phone] Normal [facility] Comment on above: Performed By: #### C MIS #### [facility] [address] [place] [address] Tube Cleaning Operator: Pancho Cano MD Test Name DILLON [facility] Normal [facility] Comment on above: Performed By: #### C MIS #### [facility] [employer] [address] [place] [address] Tube Cleaning Operator: Pancho Cano MD HEP B SURFACE ANTIGEN SCREEN on 10-26-2021 HBsAg Screen Negative Normal Negative [facility] Comment on above: Performed By: #### H IV12 #### [facility] [address] [address] [address] Edward Gill HEPATITIS C VIRUS AB W/ REFL EX QUANTon 10-26-2021 HCV AB <0.1 Normal 0.0-0.9 [facility] Comment on above: Performed By: #### H CVPCRR ####[facility] [address] [id number]. Edward Gill Interpretation: Comment Normal [facility] Comment on above: Result Comment: Nega tive Not infected with HCV, unless recent infection is suspected or other evidence exists to indicate HCV infection. Performed By: #### H CVPCRR ####[facility] [address] [id number]. Edward Gill HIV 1 AND 2 WITH REFLEXon HIV Screen 4th Generation wRfx Non-Reactive Normal Non Reactive [facility] Comment on above: Result Comment: HIV Negative HIV-1/HIV-2 antibodies and HIV-1 p24 antigen were NOT detected. There is no laboratory evidence of HIV infection. Performed By: #### H IV12 #### [facility] [address] [address] [address] Edward Gill RPR QUANTon 10-26-2021 Rapid Plasma Reagin, Quant Non-Reactive Normal NonRea<1:1 [facility] Comment on above: Result Comment: Plea se Note: This test does not meet current guidelines for screening and diagnosis of syphilis. This test is intended for following treatment response in patients being treated for syphilis infection. To screen for syphilis infection, a reflex cascade that includes both RPR and a treponema-specific assay should be utilized, such as Treponema pallidum (Syphilis) Screening Bladen (300523) or Rapid Plasma Reagin (RPR) Test With Reflex to Quantitative RPR and Confirmatory Treponema pallidum Antibodies (979155). Performed By: #### R PRQ ####[facility] [address] [address]Dr. Edward Gill RUBELLA AB IGGon 10-26-2021 Rubella Antibodies, IgG 1.02 index Normal Immune >0.99 [facility] Comment on above: Result Comment: Non- immune <0.90 Equivocal 0.90 - 0.99 Immune >0.99 Performed By: #### R UBIGG ####[facility] [address] [place], [place] [address]Dr. Edward Gill CBC AUTO DIFFon 10-25-2021 BASO # 0.0 103/ul Normal 0.0-0.1 [facility] Comment on above: Performed By: #### H IV12 #### [facility] [address] [place] [address] Dr. Edward Gill Basophils/100 WBC (Bld) 0.3 % Normal 0.2-2.0 [facility] Comment on above: Performed By: #### H IV12 #### [facility] [address] [place] [address] Dr. Edward Gill EO # 0.1 103/ul Normal 0.0-0.7 [facility] Comment on above: Performed By: #### H IV12 #### [facility] [address] [place] [address] Dr. Edward Gill Eosinophils/100 WBC (Bld) 0.6 % Critically low 0.9-7.0 [facility] Comment on above: Performed By: #### H IV12 #### [facility] [address] [place] [address] Dr. Edward Gill Erythrocyte distribution width (RBC) [Ratio] 14.1 % Normal 11.0-15.0 [facility] Comment on above: Performed By: #### H IV12 #### [facility] [address] [place] [address] Dr. Edward Gill Hematocrit (Bld) [Volume fraction] 36.2 % Normal 36.0-48.0 [facility] Comment on above: Performed By: #### H IV12 #### [facility] [address] [place] [address] Dr. Edward Gill Hemoglobin (Bld) [Mass/Vol] 12.5 g/dL Normal 12.0-16.0 [facility] Comment on above: Performed By: #### H IV12 #### [facility] [address] [place] [address] Dr. Edward Gill IG # 0.05 10e3/ul Critically high 0.00-0.03 [facility] Comment on above: Performed By: #### H IV12 #### [facility] [address] [place] [address] Dr. Edward Gill IG % 0.4 % Normal 0.0-0.5 [facility] Comment on above: Performed By: #### H IV12 #### [facility] [address] [place] [address] Dr. Edward Gill LYMPH # 2.7 103/ul Normal 1.2-3.8 [facility] Comment on above: Performed By: #### H IV12 #### [facility] [address] [place] [address] Dr. Edward Gill Lymphocytes/100 WBC (Bld) 23.2 % Normal 20.5-60.0 [facility] Comment on above: Performed By: #### H IV12 #### [facility] [address] [place] [address] Dr. Edward Gill MANUAL DIFF REQ NO Normal [facility] Comment on above: Performed By: #### H IV12 #### [facility] [address] [place] [address] Dr. Edward Gill MCH (RBC) [Entitic mass] 30.6 pg Normal 26.7-34.0 [facility] Comment on above: Performed By: #### H IV12 #### [facility] [address] [place] [address] Dr. Edward Gill MCHC (RBC) [Mass/Vol] 34.5 g/dL Normal 29.9-35.2 [facility] Comment on above: Performed By: #### H IV12 #### [facility] [address] [place] [address] Dr. Edward Gill MCV (RBC) [Entitic vol] 88.7 fL Normal 81.0-99.0 [facility] Comment on above: Performed By: #### H IV12 #### [facility] [address] [place] [address] Dr. Edward Gill MONO # 0.7 103/ul Normal 0.3-0.8 [facility] Comment on above: Performed By: #### H IV12 #### [facility] [address] [place] [address] Dr. Edward Gill Monocytes/100 WBC (Bld) 5.8 % Normal 1.7-12.0 [facility] Comment on above: Performed By: #### H IV12 #### [facility] [address] [place] [address] Dr. Edward Gill NEUT # 8.0 103/ul Critically high 1.4-6.5 [facility] Comment on above: Performed By: #### H IV12 #### [facility] [address] [place] [address] Dr. Edward Gill Neutrophils/100 WBC (Bld) 69.7 % Normal 43.0-75.0 [facility] Comment on above: Performed By: #### H IV12 #### [facility] [address] [place] [address] Dr. Edward Gill Platelet mean volume (Bld) [Entitic vol] 9.3 fL Critically low 9.5-13.5 [facility] Comment on above: Performed By: #### H IV12 #### [facility] [address] [place] [address] Dr. Edward Gill PLT 338 103/ul Normal 150-450 [facility] Comment on above: Performed By: #### H IV12 #### [facility] [address] [place] [address] Dr. Edward Gill RBC 4.08 106/ul Critically low 4.20-5.40 [facility] Comment on above: Performed By: #### H IV12 #### [facility] [address] [place] [address] Dr. Edward Gill WBC 11.4 103/ul Critically high 4.0-11.0 [facility] Comment on above: Performed By: #### H IV12 #### [facility] [address] [place] [address] Dr. Edward Gill CULTURE URINEon 10-25-2021 CULTURE URINE Culture Observations : LIGHT GROWTH OF MIXED GENITAL MARTHA. NO POTENTIAL PATHOGENS SEEN. Normal [facility] Comment on above: Performed By: #### U RCX #### [facility] [address] [place] [address] Dr. Edwrad Gill GLYCOHEMOGLOBIN A1Con 2021 ADA RECOMMENDATION SEE BELOW Normal [facility] Comment on above: Result Comment: ADA RECOMMENDED LIMIT 4.0 - 6.0 ADA THERAPEUTIC TARGET < 7.0 ACTION SUGGESTED > 7.0 Performed By: #### A 1C #### [facility] [address] [place] [address] Dr. Edward Gill Glucose [Mass/Vol] 117 mg/dL Normal [facility] Comment on above: Performed By: #### A 1C #### [facility] [address] [place] [address] Dr. Edward Gill HbA1c (Bld) [Mass fraction] 5.7 % Normal 4.5-6.2 [facility] Comment on above: Performed By: #### A 1C #### [facility] [address] [place] [address] Dr. Edward Gill DILLON BOX TEST PT SEND OUTo n 10-25-2021 SENT TO REF LAB 10/25/2021 Normal [facility] Comment on above: Performed By: #### H IV12 #### [facility] [address] [address] [address] Edward Gill TSHon 10-25-2021 TSH 1.700 uIU/mL Normal 0.358-3.74 0 [facility] Comment on above: Performed By: #### T SH ####[facility] [address] [id number] Gill TYPE AND SCREENon 10-25-2021 TYPE AND SCREEN Negative Normal [facility] Comment on above: Performed By: #### T NS ####[facility] [address] [address]DrLazara Gill US PREG TVon 09-23-2021 US PREG [...] HUMERA KIM Date: 2021-09-23 10:27 Normal [facility] PREG QUANT HCGon 09-01-2021 HCG QUANT 1242 mIU/mL Normal [facility] Comment on above: Performed By: #### H IV12 #### [facility] [address] [id number] Edward Gill HCG RANGE SEE BELOW Normal [facility] Comment on above: Result Comment: 5-50 0-1 WEEK 40-300 1-2 WEEKS 100-1,000 2-3 WEEKS 500-6,000 3-4 WEEKS 5,000-200,000 1-2 MONTHS 10,000-100,000 2-3 MONTHS 3,000-50,000 2ND TRIMESTER 1,000-50,000 3RD TRIMESTER Performed By: #### H IV12 #### [facility] [address] [address] [address] Edward Gill CHEMISTRYOrdered By: SYSTEM SYSTEM on 08-31-2021 Anion gap [Moles/Vol] 15 mmol/L Normal 6 - 16 mEq/L [facility] Calcium [Mass/Vol] 9.5 mg/dL Normal 8.9 - 11. 1 mg/dL [facility] Chloride [Moles/Vol] 102 mmol/L Normal 101 - 1 11 mmol/L [facility] CO2 [Moles/Vol] 22 mmol/L Normal 21 - 31 mmol/L [facility] Creatinine [Mass/Vol] 0.9 mg/dL Normal 0.5 - 1.3 mg/dL [facility] GFR/1.73 sq M.predicted among blacks MDRD (S/P/Bld) [Vol rate/Area] mL/min/1.73 m2 Normal >=59mL/min /1.73 m2 [facility] S GFR/1.73 sq M.predicted among non-blacks MDRD (S/P/Bld) [Vol rate/Area] mL/min/1.73 m2 Normal >=59mL/min /1.73 m2 FT [facility] S Glucose [Mass/Vol] 85 mg/dL Normal 55 - 199 mg/dL [facility] Potassium [Moles/Vol] 3.9 mmol/L Normal 3.5 - 5.3 mmol/L [facility] Sodium [Moles/Vol] 135 mmol/L Normal 135 - 145 mmol/L [facility] Urea nitrogen [Mass/Vol] 6 mg/dL Normal 5 - 21 mg/dL [facility] Urea nitrogen/Creatinine [Mass ratio] 7 mg/mg Low 10 - 20 [facility] HEMATOLOGYOrdered By: SYSTEM SYSTEM on 08-31-2021 Basophils/100 WBC (Bld) 0.5 % Normal 0.0 - 2.0 % [facility] HemeAutoSS Basophils/Leukocytes Auto (Bld) [Pure # fraction] 0.0 E9/L Normal 0.0 - 0.2 E9/L [facility]eAutoSS Eosinophils/100 WBC (Bld) 0.6 % Normal 0.0 - 8.0 % [facility]eAutoSS Eosinophils/Leukocyte s Auto (Bld) [Pure # fraction] 0.1 E9/L Normal 0.0 - 0.5 E9/L [facility] Lymphocytes/100 WBC (Bld) 36.8 % Normal 14.0 - 50.0 % [facility] Lymphocytes/Leukocyte s Auto (Bld) [Pure # fraction] 2.9 E9/L Normal 1.0 - 4.0 E9/L [facility]eAutoSS Monocytes/100 WBC (Bld) 8.7 % Normal 4.0 - 14.0 % [facility]eAutoSS Monocytes/Leukocytes Auto (Bld) [Pure # fraction] 0.7 E9/L Normal 0.2 - 1.0 E9/L [facility] Neutrophils/100 WBC (Bld) 53.4 % Normal 36.0 - 75.0 % [facility]eAutoSS Neutrophils/Leukocyte s Auto (Bld) [Pure # fraction] 4.2 E9/L [...] 7.9 E9/L Normal 4.0 - 11.0 E9/L [facility] HemeAutoSS PREG QUANT HCGon 08-29-2021 HCG QUANT 374 mIU/mL Normal [facility] Comment on above: Performed By: #### P REGQNT ####[facility] [address] [id number]. Edward Gill HCG RANGE SEE BELOW Normal [facility] Comment on above: Result Comment: 5-50 0-1 WEEK 40-300 1-2 WEEKS 100-1,000 2-3 WEEKS 500-6,000 3-4 WEEKS 5,000-200,000 1-2 MONTHS 10,000-100,000 2-3 MONTHS 3,000-50,000 2ND TRIMESTER 1,000-50,000 3RD TRIMESTER Performed By: #### P REGQNT ####[facility] [address] [address]Dr. Edward Gill PREG QUANT HCGon 08-26-2021 HCG QUANT 99 mIU/mL Normal [facility] Comment on above: Performed By: #### H IV12 #### [facility] [address] [place] [address] Dr. Edward Gill HCG RANGE SEE BELOW Normal [facility] Comment on above: Result Comment: 5-50 0-1 WEEK 40-300 1-2 WEEKS 100-1,000 2-3 WEEKS 500-6,000 3-4 WEEKS 5,000-200,000 1-2 MONTHS 10,000-100,000 2-3 MONTHS 3,000-50,000 2ND TRIMESTER 1,000-50,000 3RD TRIMESTER Performed By: #### H IV12 #### [facility] [address] [place] [address] Dr. Edward Gill PREG QUANT HCGon 08-24-2021 HCG QUANT 37 mIU/mL Normal [facility] Comment on above: Performed By: #### P REGQNT ####[facility] [address] [id number]. Edward Gill HCG RANGE SEE BELOW Normal The [facility] Comment on above: Result Comment: 5-50 0-1 WEEK 40-300 1-2 WEEKS 100-1,000 2-3 WEEKS 500-6,000 3-4 WEEKS 5,000-200,000 1-2 MONTHS 10,000-100,000 2-3 MONTHS 3,000-50,000 2ND TRIMESTER 1,000-50,000 3RD TRIMESTER Performed By: #### P REGQNT ####[facility] [address] [place], [place] [address]ChLazara Leon Jairo CHEMISTRYOrdered By: SYSTEM SYSTEM on 08-19-2021 Albumin [Mass/Vol] 4.5 g/dL Normal 3.3 - 5.0 gm/dL [facility] Remisol Albumin/Globulin [Mass ratio] 1.2 {ratio} Normal 1.1 - 2.2 [facility] Remisol ALP [Catalytic activity/Vol] 53 [iU]/d Normal 21 - 98 Int._Unit/ L [facility] Remisol ALT No additional P-5'-P [Catalytic activity/Vol] 24 [iU]/d Normal 6 - 46 Int._Unit/ L [facility] Remisol Anion gap [Moles/Vol] 13 mmol/L Normal 6 - 16 mEq/L [facility] Remisol AST [Catalytic activity/Vol] 20 [iU]/d Normal 5 - 43 Int._Unit/ L [facility] Remisol Bilirubin [Mass/Vol] 0.6 mg/dL Normal [...] MDRD (S/P/Bld) [Vol rate/Area] mL/min/1.73 m2 Normal >=59mL/min /1.73 m2 [facility] Chem S GFR/1.73 sq M.predicted among non-blacks MDRD (S/P/Bld) [Vol rate/Area] mL/min/1.73 m2 Normal >=59mL/min /1.73 m2 [facility] Chem S Globulin (S) [Mass/Vol] [...] Normal 0.0 - 8.0 % [facility] HemeAutoSS Eosinophils/Leukocyte s Auto (Bld) [Pure # fraction] 0.0 E9/L Normal 0.0 - 0.5 E9/L [facility] HemeAutoSS Lymphocytes/100 WBC (Bld) 35.9 % Normal 14.0 - 50.0 % [facility] HemeAutoSS Lymphocytes/Leukocyte s Auto (Bld) [Pure # fraction] 3.2 E9/L Normal 1.0 - 4.0 E9/L [facility] HemeAutoSS Monocytes/100 WBC (Bld) 8.8 % Normal 4.0 - 14.0 % [facility] HemeAutoSS Monocytes/Leukocytes Auto (Bld) [Pure # fraction] 0.8 E9/L Normal 0.2 - 1.0 E9/L [facility] HemeAutoSS Neutrophils/100 WBC (Bld) 54.5 % Normal 36.0 - 75.0 % [facility] HemeAutoSS Neutrophils/Leukocyte s Auto (Bld) [Pure # fraction] 4.8 E9/L [...] Normal 4.0 - 11.0 E9/L [facility] HemeAutoSS GENERATOR REPAIRER - Office Visiton 10-28 GENERATOR REPAIRER - Office Visit Chief ComplaintCom plains of: heavy bleeding Declines post adoption coordinator, Susie Salomon CMA History of Present IllnessKatkimberly is a 32yo here as a new [...] stroke 07/2017 PSH as above POB- 2007 [id number] 17week loss subchorionic [id number] 39weeks bleeding at 5weeks for 2 weeks diet [id number] calories exercise none 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 [...] History History of Oral Surgery Tooth Extraction [place] Tooth Family History No pertinent family history Family history of cerebrovascular accident (CVA) (V17.1) (Z82.3) Family history of diabetes mellitus (V18.0) (Z83.3) Family history of cerebrovascular accident (CVA) (V17.1) (Z82.3) Family history of cerebrovascular accident (CVA) (V17.1) (Z82.3) Allergies No Known Drug Allergies Recorded By: Susie Salomon; 11/08/2017 4:19:42 PM Current Meds Ciprofloxacin HCl - 500 MG Oral Tablet;Therapy: [id number] to Recorded Dispense: 0 Days ; #: Sufficient Tablet; Refill: 0; BUBBA = N; Record; Last Updated By: Susie Salomon; 11/08/2017 4:19:42 PM Plavix 75 MG Oral Tablet;Therapy: [id number] to Recorded Dispense: 0 Days ; #: Sufficient Tablet; Refill: 0; BUBBA = N; Record; Last Updated By: Susie Salomon; 11/08/2017 4:19:42 PM Provera 10 MG Oral Tablet;Therapy: [id number] to Recorded Dispense: 0 Days ; #: Sufficient Tablet; Refill: 0; BUBBA = N; Record; Last Updated By: Susie Salomon; 11/08/2017 4:19:42 PM Vitals Vital Signs Recorded: 08Nov2017 04:16SWVttktvpz492Mqjhltxyj 48Idkncs3 ft 6 lyYoazxn850 lb BMI Orpbyquvos22.57BSA Calculated1.8EVP31Rqf8321Lq in Scale6-7 Physical ExamConstitutional: Alert and in no acute distress. Well developed, well nourished. Head and Face: Head and face: Normal. Psychiatric: Alert and oriented x 3. Affect normal to patient baseline. Mood: Appropriate. Diagnoses/Problems Anemia (285.9) (D64.9) Asthma (493.90) (J45.909) Depression with anxiety (300.4) (F41.8) History of Oral Surgery Tooth Extraction [place] Tooth No pertinent family history : Mother [...] monthsRectal bleeding, likely hemorrhoids, follow up with [facility] STI testing todayWeight gain, offered a insurance case manager consult and she declined. Encouraged exercise. Signatures Electronically signed by : RICHARD Ulrich; Nov 12 2017 8:46PM EST (Author) Normal [employer] Antiphospholipid Abs IgG/IgM on 05-29-2017 Antiphospholipid Ab-IgG 196 GPL Critically high 0-14 [facility] Comment on above: Result Comment: INTE RPRETIVE INFORMATION: High-Specificity Antiphospholipid Antibody,IgG14 GPL or less......[id number] 26 GPL.........Indeterminate Suggest repeat testing in 12 weeks27 GPL or greater...PositiveHigh-specificity antiphospholipid IgG and IgM antibodies are directedagainsta mixture of phosphatidylserine, phosphatidic acid, and beta-2glycoprotein 1antigens. These antibodies are more specific than cardiolipin IgG andIgMantibodies in the diagnosis of antiphospholipid syndrome (APS). Antiphospholipid Ab-IgM 6 MPL Normal 0-14 [facility] Comment on above: Result Comment: INTE RPRETIVE INFORMATION: High-Specificity Antiphospholipid Antibody,IgM14 MPL or less......[id number] 37 MPL.........Indeterminate Suggest repeat testing in 12 weeks38 MPL or greater...PositiveHigh-specificity antiphospholipid IgG and IgM antibodies are directedagainsta mixture of phosphatidylserine, phosphatidic acid, and beta-2glycoprotein 1antigens. These antibodies are more specific than cardiolipin IgG andIgMantibodies in the diagnosis of antiphospholipid syndrome (APS).Performed by [employer],[address] [place] [id number] xpc.[employer], Zhang Bledsoe MD - Lab. Director [employer] Miscellaneous test 1on 05-28-2017 Miscellaneous Test 1 SEE NOTE Normal [facility] Comment on above: Result Comment: Test name [...] Additional information and recommendations for testingmay befound [email or web address].Performed by [employer],[address] [facility] [place] [address] xzs.[employer], Zhang Bledsoe MD - Lab. Director Cardiolipin Antibodies, IgA, IgG, IgMon 05-28-2017 Cardiolipin Ab IgA 0 APL Normal 0-11 [facility] Comment on above: Result Comment: INTE RPRETIVE INFORMATION: Cardiolipin Antibodies, IgA0-11 APL: [id number] APL: Yjrlgycnnzeqt12-17 APL: Low to Moderately Ehltgcmj41 APL or above: High PositivePerformed by [employer],[address] [place] [address] tom.[employer], Zhang Bledsoe MD - Lab. Director Cardiolipin Ab IgG 111 GPL Critically high 0-14 [facility] Comment on above: Result Comment: INTE RPRETIVE INFORMATION: Anti-Cardiolipin IgG Ab0-14 GPL: [id number] GPL: [id number] GPL: Low to Moderately Lvmgkaeg07 GPL or above: High PositiveThe persistent presence [...] Cardiolipin Ab IgM 10 MPL Normal 0-12 [facility] Comment on above: Result Comment: INTE RPRETIVE INFORMATION: Anti-Cardiolipin IgM0-12 MPL: [id number] MPL: Adwlogynrxkih27-47 MPL: Low to Moderately Fadtiotk14 MPL or above: High PositiveThe persistent presence [...] Simpson Virus by PCR Not Detected Normal [facility] Comment on above: Result Comment: NOT DETECTED - A negative result does not rule out thepresence of PCR inhibitors in the patient specimen or assayspecific nucleic acid in concentrations below the level ofdetection by the assay.INTERPRETIVE INFORMATION: Jennifer Simpson Virus by PCRTest developed and characteristics determined by [employer]. SeeCompliance Statement A: [employer]/CSPerformed by [employer],[address] [place] [address] tyd.[employer], Zhang Bledsoe MD - Lab. Director Jennifer Simpson Virus Source CSF Normal [facility] Oligoclonal Band Profileon 0 05-28-2017 Albumin 3840 mg/dL Normal 9685-2759 [facility] Albumin 5.2 ratio Normal 0.0-9.0 [facility] Albumin, CSF 20 mg/dL Normal 0-35 [facility] CSF IgG Synthesis Rate <0.0 Normal <=8.0 [facility] CSF Oligoclonal Bands Negative Normal Negative [facility] CSF Oligoclonal Bands Number 0 Bands Normal 0-1 [facility] Globulin 1060 mg/dL Normal [id number] [facility] Comment on above: Result Comment: REFE RENCE INTERVAL: Immunoglobulin GAccess complete set of age- and/or gender-specific reference intervalsforthis test in the [employer] Laboratory Test Directory ([employer]). IgG Index 0.45 ratio Normal 0.28-0.66 [facility] Immunoglobulin G CSF 2.5 mg/dL Normal 0.0-6.0 [facility] INR Coag RelTime (Bld) 0.12 {INR} Normal 0.09-0.25 [facility] Interpretation See Note Normal [facility] Comment on above: Result Comment: Isoe lectric focusing/immunofixation reveals no oligoclonal bands ineitherthe CSF or the serum. This is considered to be a negative result foroligoclonal bands. Approximately 5 percent of patients with clinicallydefinitive multiple sclerosis will have a negative result.Performed by [employer],[address] [place] [address] tws.[employer], Zhang Bledsoe MD - Lab. Director [employer], CSFon 05-27-2017 [employer] 1.82 ng/mL Normal 0.00-5.50 [facility] Comment on above: Result Comment: INTE RPRETIVE INFORMATION: [employer] ProteinTest developed and characteristics determined by [employer]. SeeCompliance Statement D: [employer]/CSPerformed by [employer],[address], [facility] [place] [address] zvr.[employer], Zhang Bledsoe MD - Lab. Director [employer] Miscellaneous test 105-26-2017 [facility] Prompt [id number] Normal [facility] Comment on above: Result Comment: Fuentes ected result; [place] [id number] on 05/25/2017 at 13:14 by V/AUT [employer] Miscellaneous test 1on 05-25-2017 [employer] Prompt [id number] Normal [facility] Comment on above: Result Comment: DS D NA CSF Cell Counton 05-25-2017 CSF no diff see below Normal [facility] Comment on above: Result Comment: Diff erential not performed -Total Nucleated cells CSF Appearance Clear Normal [facility] CSF Color Colorless Normal [facility] CSF Tube Number Tube 4 Normal [facility] Fluid Clot Evaluation see below Normal [facility] Comment on above: Result Comment: No C lots Seen Total Nucleated Cells 0 K/uL Normal 0-8 [facility] Total Red Blood Cells 0 K/uL Normal [facility] CSF Glucoseon 05-25-2017 CSF Glucose 54 mg/dL Normal 50-70 [facility] CSF Proteinon 05-25-2017 CSF Protein 41 mg/dL Normal 15-45 [facility] Creatine Kinaseon 05-25-2017 Creatine kinase (CK) 71 U/L Normal 0-170 [facility] Culture, CSFon 05-25-2017 Culture, CSF OR DERED BY: VERNA MONGE: CSF (Spinal Fluid) CSF COLLECTED: 05/25/17 13:25ANTIBIOTICS AT AMARILYS.: RECEIVED : 05/25/17 13:25Gram Stain Direct FINAL 05/25/17 15:30 No WBC's, No organisms seenCulture, CSF FINAL 05/28/17 09:04 No growth at 72 hours [facility] [place] LUMBAR PUNCTURE DIAGon [place] LUMBAR PUNCTURE [...] by:NIKITA Mezaigned by:Humera Covarrubias MD05/25/17inal result Normal [facility] Homocysteineon 05-25-2017 Homocysteine 9.1 umol/L Normal 0.0-15.0 [facility] Partial Thromboplastin Timeo n 05-25-2017 aPTT 31.7 s Normal 21.6-35.4 [facility] Comment on above: Result Comment: Hepa rin Therapeutic Range: 38.8 - 54.6 seconds. Prothrombin Timeon INR Coag RelTime (PPP) 1.0 {INR} Normal [facility] Comment on above: Result Comment: [...] Coag time (PPP) 10.7 s Normal 8.1-13.7 [facility] Vital Signs Date Time Vital Sign Value Performing Clinician Deborah mast 12-11-2024 09:28-0400 Body mass index (BMI) [Ratio] 33.41 kg/m2 [employer] Phone: [facility] 12-11-2024 09:28-0400 Body weight 93.89 kg Wilton Montez DO Work Phone: [facility] 12-11-2024 09:28-0400 Diastolic blood pressure 70 mm[Hg] Wilton Montez DO Work Phone: [facility] 12-11-2024 09:28-0400 Systolic blood pressure 120 mm[Hg] Wilton Montez DO Work Phone: [facility] 11-20-2024 10:53-0400 Body mass index (BMI) [Ratio] 33.57 kg/m2 Wilton Montez DO Work Phone: [facility] 11-20-2024 10:53-0400 Body weight 94.35 kg Wilton Montez DO Work Phone: [facility] 11-20-2024 10:53-0400 Diastolic blood pressure 76 mm[Hg] Wilton Montez DO Work Phone: [facility] 11-20-2024 10:53-0400 Systolic blood pressure 108 mm[Hg] Wilton Montez DO Work Phone: [facility] 11-19-2024 13:07-0400 Body mass index (BMI) [Ratio] 33.73 kg/m2 Lorena Enciso RN Work Phone: [facility] 11-19-2024 13:07-0400 Body weight 94.8 kg Lorena Enciso RN Work Phone: [facility] 10-30-2024 09:32-0400 Body mass index (BMI) [Ratio] 33.81 kg/m2 Wilton Montez DO Work Phone: [facility] 10-30-2024 09:32-0400 Body weight 95.03 kg Wilton Montez DO Work Phone: [facility] 10-30-2024 09:32-0400 Diastolic blood pressure 76 mm[Hg] Wilton Montez DO Work Phone: [facility] 10-30-2024 09:32-0400 Systolic blood pressure 110 mm[Hg] Wilton Montez DO Work Phone: [facility] 10-28-2024 14:23-0400 Body mass index (BMI) [Ratio] 33.46 kg/m2 Grant Negrete RIDER TICKET WORKER.MEDICAL IMAGING TECHNICIAN Work Phone: [facility] 10-28-2024 14:23-0400 Body temperature 97 [degF] Grant Negrete RIDER TICKET WORKER.MEDICAL IMAGING TECHNICIAN Work Phone: [facility] 10-28-2024 14:23-0400 Body weight 94.1 kg Grant Negrete RIDER TICKET WORKER.MEDICAL IMAGING TECHNICIAN Work Phone: [facility] 10-28-2024 14:23-0400 Diastolic blood pressure 77 mm[Hg] Grant Negrete RIDER TICKET WORKER.MEDICAL IMAGING TECHNICIAN Work Phone: [facility] 10-28-2024 14:23-0400 Heart rate 82 /min Grant Negrete RIDER TICKET WORKER.MEDICAL IMAGING TECHNICIAN Work Phone: [facility] 10-28-2024 14:23-0400 Respiratory rate 16 /min Grant Negrete RIDER TICKET WORKER.MEDICAL IMAGING TECHNICIAN Work Phone: [facility] 10-28-2024 14:23-0400 SaO2% (BldA) [Mass fraction] 100 % Grant Negrete RIDER TICKET WORKER.MEDICAL IMAGING TECHNICIAN Work Phone: [facility] 10-28-2024 14:23-0400 Systolic blood pressure 122 mm[Hg] Grant Negrete RIDER TICKET WORKER.MEDICAL IMAGING TECHNICIAN Work Phone: [facility] 10-02-2024 14:10-0400 Body mass index (BMI) [Ratio] 33.89 kg/m2 [facility] 10-02-2024 14:10-0400 Body weight 95.25 kg [facility] 10-02-2024 14:10-0400 Diastolic blood pressure 78 mm[Hg] [facility] 10-02-2024 14:10-0400 Systolic blood pressure 124 mm[Hg] [facility] 07-24-2024 12:07-0400 Body mass index (BMI) [Ratio] 34.44 kg/m2 Wilton Herrmann DO Work Phone: [facility] 07-24-2024 12:07-0400 Body weight 96.8 kg Wilton Montez DO Work Phone: [facility] 07-24-2024 12:07-0400 Diastolic blood pressure 84 mm[Hg] Wilton Montez DO Work Phone: [facility] 07-24-2024 12:07-0400 Systolic blood pressure 120 mm[Hg] Wilton Montez DO Work Phone: [facility] 06-30-2024 08:27-0500 Blood Pressure Location Evans KAPLE [facility] 06-30-2024 08:27-0500 Diastolic blood pressure 72 mm[Hg] Evans KAPLE [facility] 06-30-2024 08:27-0500 Heart rate 77 /min Evans KAPLE [facility] 06-30-2024 08:27-0500 SaO2% (BldA) [Mass fraction] 99 % Evans KAPLE [facility] 06-30-2024 08:27-0500 Systolic blood pressure 136 mm[Hg] Evans KAPLE [facility] 06-23-2024 15:21-0500 Body mass index (BMI) [Ratio] 34.93 kg/m2 Wilton Montez DO Work Phone: [facility] 06-23-2024 15:21-0500 Body weight 98.16 kg Wilton Montez DO Work Phone: [facility] 06-23-2024 15:21-0500 Diastolic blood pressure 74 mm[Hg] Wilton Montez DO Work Phone: [facility] 06-23-2024 15:21-0500 Systolic blood pressure 112 mm[Hg] Wilton Montez DO Work Phone: [facility] 06-19-2024 16:14-0500 Blood Pressure Location JESSICA BACA [facility] 06-19-2024 16:14-0500 Diastolic blood pressure 72 mm[Hg] JESSICA KEVEN [facility] 06-19-2024 16:14-0500 Heart rate 74 /min JESSICA NAKIAEFRENMANI [facility] 06-19-2024 16:14-0500 SaO2% (BldA) [Mass fraction] 100 % JESSICA SANTANAMANI [facility] 06-19-2024 16:14-0500 Systolic blood pressure 126 mm[Hg] JESSICA SANTANAMANI [facility] 06-09-2024 13:55-0500 Blood Pressure Location Evans STEPHANILE [facility] 06-09-2024 13:55-0500 Diastolic blood pressure 72 mm[Hg] Evans KAPLE [facility] 06-09-2024 13:55-0500 Heart rate 78 /min Evans KAPLE [facility] 06-09-2024 13:55-0500 SaO2% (BldA) [Mass fraction] 99 % Evans KAPLE [facility] 06-09-2024 13:55-0500 Systolic blood pressure 178 mm[Hg] Evans KAPLE [facility] 06-02-2024 11:43-0500 Body mass index (BMI) [Ratio] 34.51 kg/m2 Wilton MontezMedivance Work Phone: [facility] 06-02-2024 11:43-0500 Body weight 96.98 kg Wilton Montez DO Work Phone: [facility] 06-02-2024 11:43-0500 Diastolic blood pressure 60 mm[Hg] Wilton Montez DO Work Phone: [facility] 06-02-2024 11:43-0500 Systolic blood pressure 120 mm[Hg] Wilton Montez DO Work Phone: [facility] 05-28-2024 13:07-0500 Body height 167.7 cm Salvador Calix MD Work Phone: [facility] 05-28-2024 13:07-0500 Body mass index (BMI) [Ratio] 35.02 kg/m2 Salvador Calix MD Work Phone: [facility] 05-28-2024 13:07-0500 Body temperature 97.59 [degF] Salvador Calix MD Work Phone: [facility] 05-28-2024 13:07-0500 Body weight 98.5 kg Salvador Calix MD Work Phone: [facility] 05-28-2024 13:07-0500 Diastolic blood pressure 83 mm[Hg] Salvador Calix MD Work Phone: [facility] 05-28-2024 13:07-0500 Heart rate 72 /min Salvador Calix MD Work Phone: [facility] 05-28-2024 13:07-0500 Respiratory rate 16 /min Salvador Calix MD Work Phone: [facility] 05-28-2024 13:07-0500 SaO2% (BldA) [Mass fraction] 99 % Salvador Calix MD Work Phone: [facility] 05-28-2024 13:07-0500 Systolic blood pressure 123 mm[Hg] Salvador Calix MD Work Phone: [facility] 05-06-2024 14:40-0500 Body mass index (BMI) [Ratio] 35.41 kg/m2 Wilton Montez DO Work Phone: [facility] 05-06-2024 14:40-0500 Body weight 99.52 kg Wilton Montez DO Work Phone: [facility] 05-06-2024 14:40-0500 Diastolic blood pressure 80 mm[Hg] Wilton Montez DO Work Phone: [facility] 05-06-2024 14:40-0500 Systolic blood pressure 120 mm[Hg] Wilton Montez DO Work Phone: [facility] 04-04-2024 10:57-0500 Body mass index (BMI) [Ratio] 35.85 kg/m2 [facility] 04-04-2024 10:57-0500 Body weight 100.75 kg [facility] 02-05-2024 13:29-0400 Blood Pressure Location Evans KAPLE [facility] 02-05-2024 13:29-0400 Body temperature 98.06 [degF] Evans KAPLE [facility] 02-05-2024 13:29-0400 Diastolic blood pressure 70 mm[Hg] Evans KAPLE [facility] 02-05-2024 13:29-0400 Heart rate 76 /min Evans KAPLE [facility] 02-05-2024 13:29-0400 Respiratory rate 16 /min Evans KAPLE [facility] 02-05-2024 13:29-0400 SaO2% (BldA) [Mass fraction] 99 % Evans KAPLE [facility] 02-05-2024 13:29-0400 Systolic blood pressure 122 mm[Hg] Evans KAPLE [facility] 02-02-2024 14:39-0400 Blood Pressure Location Anni Gudimella [facility] 02-02-2024 14:39-0400 Body temperature 98.06 [degF] Anni Gudimella [facility] 02-02-2024 14:39-0400 Diastolic blood pressure 84 mm[Hg] Anni Gudimella [facility] 02-02-2024 14:39-0400 Heart rate 98 /min Anni Gudimella [facility] 02-02-2024 14:39-0400 SaO2% (BldA) [Mass fraction] 99 % Anni Gudimella [facility] 02-02-2024 14:39-0400 Systolic blood pressure 121 mm[Hg] Anni Gudimella [facility] 01-02-2024 13:45-0400 Body height 167.7 cm Salvador Calix MD Work Phone: [facility] 01-02-2024 13:45-0400 Body mass index (BMI) [Ratio] 36.52 kg/m2 Salvador Calix MD Work Phone: [facility] 01-02-2024 13:45-0400 Body temperature 97.11 [degF] Salvador Calix MD Work Phone: [facility] 01-02-2024 13:45-0400 Body weight 102.7 kg Salvador Calix MD Work Phone: [facility] 01-02-2024 13:45-0400 Diastolic blood pressure 81 mm[Hg] Salvador Calix MD Work Phone: [facility] 01-02-2024 13:45-0400 Heart rate 91 /min Salvador Calix MD Work Phone: [facility] 01-02-2024 13:45-0400 Respiratory rate 16 /min Salvador Calix MD Work Phone: [facility] 01-02-2024 13:45-0400 SaO2% (BldA) [Mass fraction] 100 % Salvador Calix MD Work Phone: [facility] 01-02-2024 13:45-0400 Systolic blood pressure 128 mm[Hg] Salvador Calix MD Work Phone: [facility] 11-29-2023 13:40-0400 Body temperature 97.7 [degF] Chair González Work Phone: [facility] 11-29-2023 13:40-0400 Diastolic blood pressure 79 mm[Hg] Chair Banks Work Phone: [facility] 11-29-2023 13:40-0400 Heart rate 75 /min Chair González Work Phone: [facility] 11-29-2023 13:40-0400 Respiratory rate 16 /min Chair Banks Work Phone: [facility] 11-29-2023 13:40-0400 SaO2% (BldA) [Mass fraction] 99 % Chair González Work Phone: [facility] 11-29-2023 13:40-0400 Systolic blood pressure 114 mm[Hg] Chair Banks Work Phone: [facility] 11-22-2023 14:00-0400 Body temperature 98.2 [degF] Chair Banks Work Phone: [facility] 11-22-2023 14:00-0400 Diastolic blood pressure 75 mm[Hg] Chair González Work Phone: [facility] 11-22-2023 14:00-0400 Heart rate 79 /min Chair González Work Phone: [facility] 11-22-2023 14:00-0400 Respiratory rate 16 /min Chair González Work Phone: [facility] 11-22-2023 14:00-0400 SaO2% (BldA) [Mass fraction] 99 % Chair Banks Work Phone: [facility] 11-22-2023 14:00-0400 Systolic blood pressure 111 mm[Hg] Chair Banks Work Phone: [facility] 11-15-2023 14:08-0400 Diastolic blood pressure 84 mm[Hg] Chair Banks Work Phone: [facility] 11-15-2023 14:08-0400 Heart rate 85 /min Chair González Work Phone: [facility] 11-15-2023 14:08-0400 Respiratory rate 18 /min Chair Banks Work Phone: [facility] 11-15-2023 14:08-0400 SaO2% (BldA) [Mass fraction] 96 % Chair González Work Phone: [facility] 11-15-2023 14:08-0400 Systolic blood pressure 129 mm[Hg] Chair Banks Work Phone: [facility] 11-09-2023 14:44-0400 Blood Pressure Location Monica Saba [facility] 11-09-2023 14:44-0400 Body temperature 97.34 [degF] Monica Saba [facility] 11-09-2023 14:44-0400 Diastolic blood pressure 74 mm[Hg] Monica Saba [facility] 11-09-2023 14:44-0400 Heart rate 85 /min Monica Saba [facility] 11-09-2023 14:44-0400 Respiratory rate 16 /min Monica Saba [facility] 11-09-2023 14:44-0400 SaO2% (BldA) [Mass fraction] 99 % Monica Saba [facility] 11-09-2023 14:44-0400 Systolic blood pressure 122 mm[Hg] Monica Saba [facility] 10-23-2023 16:48-0400 Blood Pressure Location Lourdes Garber [facility] 10-23-2023 16:48-0400 Body temperature 97.52 [degF] Lourdes Garber [facility] 10-23-2023 16:48-0400 Diastolic blood pressure 60 mm[Hg] Lourdes Gabrer [facility] 10-23-2023 16:48-0400 Heart rate 86 /min Lourdes Garber [facility] 10-23-2023 16:48-0400 SaO2% (BldA) [Mass fraction] 99 % Lourdes Garber [facility] 10-23-2023 16:48-0400 Systolic blood pressure 122 mm[Hg] Lourdes Garber [facility] 09-28-2023 21:17-0400 Body temperature 98.06 [degF] Benny Uribe [facility] 09-28-2023 21:17-0400 Diastolic blood pressure 68 mm[Hg] Benny Uribe [facility] 09-28-2023 21:17-0400 Heart rate 67 /min Benny Uribe [facility] 09-28-2023 21:17-0400 Mean blood pressure 84 mm[Hg] Benny Uribe [facility] 09-28-2023 21:17-0400 SaO2% (BldA) [Mass fraction] 95 % Benny Rony [facility] 09-28-2023 21:17-0400 Systolic blood pressure 117 mm[Hg] Benny Rony [facility] 09-28-2023 20:00-0400 Diastolic blood pressure 75 mm[Hg] Benny Rony [facility] 09-28-2023 20:00-0400 Heart rate 78 /min Benny Orny [facility] 09-28-2023 20:00-0400 Mean blood pressure 95 mm[Hg] Benny Rony [facility] 09-28-2023 20:00-0400 Respiratory rate 20 /min Benny Rony [facility] 09-28-2023 20:00-0400 Systolic blood pressure 134 mm[Hg] Benny Rony [facility] 09-28-2023 19:30-0400 Diastolic blood pressure 85 mm[Hg] Benny Rony [facility] 09-28-2023 19:30-0400 Heart rate 80 /min Benny Rony [facility] 09-28-2023 19:30-0400 Mean blood pressure 101 mm[Hg] Benny Rony [facility] 09-28-2023 19:30-0400 Respiratory rate 18 /min Benny Rony [facility] 09-28-2023 19:30-0400 SaO2% (BldA) [Mass fraction] 100 % Benny Rony [facility] 09-28-2023 19:30-0400 Systolic blood pressure 132 mm[Hg] Benny Uribe [facility] 09-28-2023 19:00-0400 Respiratory rate 17 /min Benny Uribe [facility] 09-28-2023 18:32-0400 Body temperature 98.42 [degF] Benny Uribe [facility] 09-28-2023 18:32-0400 Heart rate 69 /min Benny Uribe [facility] 09-28-2023 17:46-0400 Diastolic blood pressure 90 mm[Hg] JANET DUNHAM [facility] 09-28-2023 17:46-0400 Mean blood pressure 109 mm[Hg] JANET DUNHAM [facility] 09-28-2023 17:46-0400 Systolic blood pressure 148 mm[Hg] JANET DUNHAM [facility] 09-28-2023 17:40-0400 Blood Pressure Location JANET DUNHAM [facility] 09-28-2023 17:40-0400 Body temperature 97.88 [degF] JANET DUNHAM [facility] 09-28-2023 17:40-0400 Diastolic blood pressure 70 mm[Hg] JANET DUNHAM [facility] 09-28-2023 17:40-0400 Heart rate 79 /min JANET DUNHAM [facility] 09-28-2023 17:40-0400 SaO2% (BldA) [Mass fraction] 97 % JANET DUNHAM [facility] 09-28-2023 17:40-0400 Systolic blood pressure 150 mm[Hg] JANET DUNHAM [facility] 08-03-2023 11:42-0400 Blood Pressure Location Evans CASAS [facility] 08-03-2023 11:42-0400 Body temperature 98.06 [degF] Evans KAPLE [facility] 08-03-2023 11:42-0400 Diastolic blood pressure 80 mm[Hg] Evans KAPLE [facility] 08-03-2023 11:42-0400 Heart rate 72 /min Evans KAPLE [facility] 08-03-2023 11:42-0400 Respiratory rate 16 /min Evans KAPLE [facility] 08-03-2023 11:42-0400 SaO2% (BldA) [Mass fraction] 99 % Evans KAPLE [facility] 08-03-2023 11:42-0400 Systolic blood pressure 120 mm[Hg] Evans KAPLE [facility] 06-15-2023 14:05-0500 Body height 167.7 cm Salvador Calix MD Work Phone: [facility] 06-15-2023 14:05-0500 Body temperature 97.39 [degF] Salvador Calix MD Work Phone: [facility] 06-15-2023 14:05-0500 Body weight 108.1 kg Salvador Calix MD Work Phone: [facility] 06-15-2023 14:05-0500 Diastolic blood pressure 75 mm[Hg] Salvador Calix MD Work Phone: [facility] 06-15-2023 14:05-0500 Heart rate 87 /min Salvador Calix MD Work Phone: [facility] 06-15-2023 14:05-0500 Respiratory rate 16 /min Salvador Calix MD Work Phone: [facility] 06-15-2023 14:05-0500 SaO2% (BldA) [Mass fraction] 95 % Salvador Calix MD Work Phone: [facility] 06-15-2023 14:05-0500 Systolic blood pressure 147 mm[Hg] Salvador Calix MD Work Phone: [facility] 05-25-2023 11:11-0500 Blood Pressure Location Evans KAPLE [facility] 05-25-2023 11:11-0500 Body temperature 97.7 [degF] Evans KAPLE [facility] 05-25-2023 11:11-0500 Diastolic blood pressure 70 mm[Hg] Evans KAPLE [facility] 05-25-2023 11:11-0500 Heart rate 76 /min Evans KAPLE [facility] 05-25-2023 11:11-0500 Respiratory rate 18 /min Evans KAPLE [facility] 05-25-2023 11:11-0500 SaO2% (BldA) [Mass fraction] 98 % Evans KAPLE [facility] 05-25-2023 11:11-0500 Systolic blood pressure 118 mm[Hg] Evans KAPLE [facility] 02-15-2023 09:41-0400 Blood Pressure Location Evans KAPLE [facility] 02-15-2023 09:41-0400 Body temperature 98.42 [degF] Evans KAPLE [facility] 02-15-2023 09:41-0400 Diastolic blood pressure 74 mm[Hg] Evans KAPLE [facility] 02-15-2023 09:41-0400 Heart rate 80 /min Evans KAPLE [facility] 02-15-2023 09:41-0400 Respiratory rate 18 /min Evans KAPLE [facility] 02-15-2023 09:41-0400 SaO2% (BldA) [Mass fraction] 98 % Evans KAPLE [facility] 02-15-2023 09:41-0400 Systolic blood pressure 122 mm[Hg] Evans KAPLE [facility] 10-20-2022 09:44-0400 Blood Pressure Location Evans KAPLE [facility] 10-20-2022 09:44-0400 Body temperature 98.24 [degF] Evans KAPLE [facility] 10-20-2022 09:44-0400 Diastolic blood pressure 81 mm[Hg] Evans KAPLE [facility] 10-20-2022 09:44-0400 Heart rate 88 /min Evans KAPLE [facility] 10-20-2022 09:44-0400 Respiratory rate 18 /min Evans KAPLE [facility] 10-20-2022 09:44-0400 SaO2% (BldA) [Mass fraction] 98 % Evans KAPLE [facility] 10-20-2022 09:44-0400 Systolic blood pressure 130 mm[Hg] Evans KAPLE [facility] 07-27-2022 13:18-0400 Body height 167.7 cm Salvador Calix MD Work Phone: [facility] 07-27-2022 13:18-0400 Body temperature 97.5 [degF] Salvador Calix MD Work Phone: [facility] 07-27-2022 13:18-0400 Body weight 107.78 kg Salvador Calix MD Work Phone: [facility] 07-27-2022 13:18-0400 Diastolic blood pressure 79 mm[Hg] Salvador Calix MD Work Phone: [facility] 07-27-2022 13:18-0400 Heart rate 76 /min Salvador Calix MD Work Phone: [facility] 07-27-2022 13:18-0400 Respiratory rate 16 /min Salvador Calix MD Work Phone: [facility] 07-27-2022 13:18-0400 SaO2% (BldA) [Mass fraction] 97 % Salvador Calix MD Work Phone: [facility] 07-27-2022 13:18-0400 Systolic blood pressure 136 mm[Hg] Salvador Calix MD Work Phone: [facility] 04-20-2022 13:45-0500 Body temperature 98.71 [degF] Chair González Work Phone: [facility] 04-20-2022 13:45-0500 Diastolic blood pressure 66 mm[Hg] Chair González Work Phone: [facility] 04-20-2022 13:45-0500 Heart rate 85 /min Chair Banks Work Phone: [facility] 04-20-2022 13:45-0500 SaO2% (BldA) [Mass fraction] 97 % Chair Banks Work Phone: [facility] 04-20-2022 13:45-0500 Systolic blood pressure 120 mm[Hg] Chair Banks Work Phone: [facility] 04-05-2022 16:27-0500 Diastolic blood pressure 65 mm[Hg] Chair González Work Phone: [facility] 04-05-2022 16:27-0500 Heart rate 84 /min Chair Banks Work Phone: [facility] 04-05-2022 16:27-0500 Respiratory rate 18 /min Chair González Work Phone: [facility] 04-05-2022 16:27-0500 SaO2% (BldA) [Mass fraction] 96 % Chair Banks Work Phone: [facility] 04-05-2022 16:27-0500 Systolic blood pressure 119 mm[Hg] Chair Banks Work Phone: [facility] 03-27-2022 14:20-0500 Body height 167.7 cm Salvador Calix MD Work Phone: [facility] 03-27-2022 14:20-0500 Body temperature 97.39 [degF] Salvador Calix MD Work Phone: [facility] 03-27-2022 14:20-0500 Body weight 106.23 kg Salvador Calix MD Work Phone: [facility] 03-27-2022 14:20-0500 Diastolic blood pressure 59 mm[Hg] Salvador Calix MD Work Phone: [facility] 03-27-2022 14:20-0500 Heart rate 100 /min Salvador Calix MD Work Phone: [facility] 03-27-2022 14:20-0500 Respiratory rate 16 /min Salvador Calix MD Work Phone: [facility] 03-27-2022 14:20-0500 SaO2% (BldA) [Mass fraction] 97 % Salvador Calix MD Work Phone: [facility] 03-27-2022 14:20-0500 Systolic blood pressure 125 mm[Hg] Salvador Calix MD Work Phone: [facility] 01-30-2022 11:46-0400 Body height 167.7 cm Salvador Calix MD Work Phone: [facility] 01-30-2022 11:46-0400 Body temperature 97.2 [degF] Salvador Calix MD Work Phone: [facility] 01-30-2022 11:46-0400 Body weight 104.42 kg Salvador Calix MD Work Phone: [facility] 01-30-2022 11:46-0400 Diastolic blood pressure 61 mm[Hg] Salvador Calix MD Work Phone: [facility] 01-30-2022 11:46-0400 Heart rate 88 /min Salvador Calix MD Work Phone: [facility] 01-30-2022 11:46-0400 Respiratory rate 16 /min Salvador Calix MD Work Phone: [facility] 01-30-2022 11:46-0400 SaO2% (BldA) [Mass fraction] 99 % Salvador Calix MD Work Phone: [facility] 01-30-2022 11:46-0400 Systolic blood pressure 122 mm[Hg] Salvador Calix MD Work Phone: [facility] 08-19-2021 10:46-0400 Blood Pressure Location PERNELL LONGORIA [facility] 08-19-2021 10:46-0400 Diastolic blood pressure 78 mm[Hg] PERNELL LONGORIA [facility] 08-19-2021 10:46-0400 Heart rate 96 /min PERNELL LONGORIA [facility] 08-19-2021 10:46-0400 SaO2% (BldA) [Mass fraction] 99 % PERNELL LONGORIA [facility] 08-19-2021 10:46-0400 Systolic blood pressure 124 mm[Hg] PERNELL LONGORIA [facility] Encounters Encounter Date Encounter Type Care Provider Facility Start: 12-11-2024 End: 12-11-2024 [employer] Wilton Montez DO Work Phone: [facility] Start: 12-11-2024 End: 12-11-2024 [employer] Wilton Montez DO Work Phone: [facility] Start: 12-11-2024 End: 12-11-2024 Office outpatient visit 15 minutes Wilton Montez DO Work Phone: [facility] Comment on above: 19 weeks gestation o f ([facility]); Second trimester ([facility]); Thyroid disease ; Multigravida of advanced maternal age in second trimester ([facility]); Gestational diabetes mellitus (GDM), antepartum, gestational diabetes method of control unspecified ([facility]) Start: 12-03-2024 End: 12-03-2024 ambulatory [facility] Start: 12-03-2024 End: 12-03-2024 Office outpatient visit 25 minutes Jason Saba APRN-MEDICAL IMAGING TECHNICIAN Work Phone: [facility] Comment on above: Insulin controlled g estational diabetes mellitus (GDM) in second trimester (Primary Dx) Start: 12-03-2024 End: 12-03-2024 Telephone encounter Anni Brady STEEL FINISHER [facility] Start: 11-20-2024 End: 11-20-2024 Bamboo flowsheet Wilton Montez DO Work Phone: [facility] Start: 11-20-2024 End: 11-20-2024 Bamboo flowsheet Wilton Montez DO Work Phone: [facility] Start: 11-20-2024 End: 11-20-2024 ambulatory WILTON MONTEZ Not Available Start: 11-20-2024 End: 11-20-2024 Office outpatient visit 15 minutes Wilton Montez DO Work Phone: [facility] Comment on above: Second trimester pre gnancy ([facility]); 16 weeks gestation of ([facility]); Screening, , for anatomic survey ([facility]); Vaginal discharge; Sinus headache Start: 11-19-2024 End: 11-19-2024 ambulatory Lorena Enciso RN Work Phone: [facility] Comment on above: Gestational diabetes mellitus (GDM), antepartum, gestational diabetes method of control unspecified (Primary Dx) Start: 11-04-2024 End: 11-04-2024 Chart abstracting Wilfrid Medina MD Work Phone: [facility] Start: 10-30-2024 End: 10-30-2024 Bamboo flowsheet Wilton Montez DO Work Phone: [facility] Start: 10-30-2024 End: 10-30-2024 Bamboo flowsheet Wilton Montez DO Work Phone: [facility] Start: 10-30-2024 End: 10-30-2024 Office outpatient visit 15 minutes Wilton Montez DO Work Phone: [facility] Comment on above: Second trimester pre gnancy ([facility]); 13 weeks gestation of ([facility]); Thyroid disease ; Multigravida of advanced maternal age in second trimester ([facility]); Gestational diabetes mellitus (GDM), antepartum, gestational diabetes method of control unspecified ([facility]); Elevated glucose tolerance test Start: 10-30-2024 End: 10-30-2024 ambulatory WILTON HERRMANN Not Available Start: 10-29-2024 End: 10-29-2024 Refill Emelyn Paz APRN.CNP Work Phone: Hematology/Oncology Comment on above: Refill Request Start: 10-28-2024 End: 10-28-2024 Patient encounter procedure Grant Negrete APRN.TOR Work Phone: Hematology/Oncology Start: 10-28-2024 End: 10-28-2024 ambulatory Grant Negrete APRN.TOR Work Phone: Hematology/Oncology Comment on above: Primary hypercoagula ble state (HCC) (Primary Dx); CVA, old, speech/language deficit; Cerebral hyponatremia; Personal history of TIA (transient ischemic attack) Start: 10-28-2024 End: 11-05-2024 Telephone encounter Grant Negrete APRN.TOR [facility] Comment on above: Results Start: 10-24-2024 End: 10-24-2024 Telephone encounter Grant Negrete APRN.MEDICAL IMAGING TECHNICIAN Work Phone: Hematology/Oncology Comment on above: Lab Orders Start: 10-20-2024 End: 2024 Refill Salvador Calix MD Work Phone: Hematology/Oncology Comment on above: Refill Request Start: 10-13-2024 End: 10-13-2024 Orders Only Margo Khan RN [facility] Comment on above: Gestational diabetes mellitus (GDM), antepartum, gestational diabetes method of control unspecified (Primary Dx) Start: 10-06-2024 End: 10-06-2024 Clinisync Result Encounter Witlon Herrmann DO Work Phone: [facility] Unsolicited Start: 10-06-2024 End: 10-06-2024 Clinisync Result Encounter Wilton Montez DO Work Phone: [facility] Unsolicited Start: 10-02-2024 End: 10-02-2024 ambulatory WILTON MONTEZ Not Available Start: 10-02-2024 End: 10-02-2024 Office outpatient visit 5 minutes [facility] Montez Nurse [facility] Comment on above: GA: 9w3d Start: 09-11-2024 End: 09-11-2024 Clinisync Result Encounter Wilton Montez DO Work Phone: [facility] External [facility] Unsolicited Start: 09-11-2024 End: 09-11-2024 Clinisync Result Encounter Wilton Montez DO Work Phone: [facility] External Department Unsolicited Start: 09-09-2024 End: 09-09-2024 ambulatory Evans CASAS Facility:[facility] Start: 09-09-2024 End: 09-09-2024 Patient encounter procedure Evans CASAS [facility] Start: 09-07-2024 End: 09-07-2024 ambulatory Romulo Chiu Facility:[facility] Start: 09-02-2024 End: 09-03-2024 Telephone encounter Naga Johnson RN Hematology/Oncology Comment on above: Patient Update Start: 08-26-2024 End: 08-26-2024 Telephone encounter Salvador Calix MD Work Phone: Hematology/Oncology Comment on above: Lab Orders Start: 08-23-2024 End: 08-23-2024 ambulatory Wilton R MONTEZ Facility:[facility] Start: 08-23-2024 End: 08-23-2024 Patient encounter procedure Wilton R MONTEZ [facility] Start: 07-25-2024 End: 07-31-2024 Refill Salvador Calix MD Work Phone: Hematology/Oncology Comment on above: Refill Request Start: 07-24-2024 End: 07-24-2024 Bamboo flowsheet Wilton Montez DO Work Phone: [facility] Start: 07-24-2024 End: 07-24-2024 Bamboo flowsheet Wilton Montez DO Work Phone: [facility] Start: 07-24-2024 End: 07-24-2024 ambulatory WILTON MONTEZ Not Available Start: 07-24-2024 End: 07-24-2024 Office outpatient visit 15 minutes Wilton Montez DO Work Phone: [facility] Comment on above: Irregular menstrual cycle Start: 07-09-2024 End: 07-09-2024 ambulatory Farhat Blue Facility:[facility] Start: 07-09-2024 End: 07-09-2024 Patient encounter procedure Inez Wakefield [facility] Start: 07-08-2024 End: 07-26-2024 Pre-admission assessment Inez Wakefield [facility] Start: 07-07-2024 End: 07-07-2024 ambulatory Evans A KAPANNA Facility:[facility] Start: 06-30-2024 End: 06-30-2024 ambulatory Evans A PRAVEEN Facility:[facility] Start: 06-30-2024 End: 06-30-2024 Patient encounter procedure Evans A PRAVEEN [facility] Start: 06-23-2024 End: 06-23-2024 Office outpatient visit 15 minutes Wilton Montez DO Work Phone: [facility] Comment on above: Vaginal bleeding; Dizziness; Abnormal TSH; Vaginal discharge; Pelvic pain in female Start: 06-23-2024 End: 06-23-2024 ambulatory WILTON MONTEZ Not Available Start: 06-23-2024 End: 06-25-2024 External Result Encounter Wilton Montez DO Work Phone: [facility] Unsolicited Start: 06-23-2024 End: 06-25-2024 External Result Encounter Witlon Montez DO Work Phone: [facility] External Department Unsolicited Start: 06-19-2024 End: 06-19-2024 ambulatory JESSICA BACA Facility:[facility] Start: 06-19-2024 End: 06-19-2024 Patient encounter procedure JESSICA BACA [facility] Start: 06-12-2024 End: 06-12-2024 ambulatory Wilton R MONTEZ Facility:[facility] Start: 06-12-2024 End: 06-12-2024 Patient encounter procedure Wilton R MONTEZ [facility] Start: 06-09-2024 End: 06-09-2024 ambulatory Evans CASAS Facility:[facility] Start: 06-09-2024 End: 06-09-2024 Patient encounter procedure Wilton R MONTEZ [facility] Start: 06-06-2024 End: 06-06-2024 ambulatory ABI LOZANO [facility] Start: 06-02-2024 End: 06-02-2024 ambulatory WILTON MONTEZ Not Available Start: 06-02-2024 End: 06-02-2024 Office outpatient visit 15 minutes Wilton Montez DO Work Phone: [facility] Comment on above: Follow-up visit afte r miscarriage; Abnormal TSH; History of thyroid disease Start: 05-28-2024 End: 05-28-2024 Telephone encounter Salvador Calix MD Work Phone[facility] Start: 05-28-2024 End: 05-28-2024 Office outpatient visit 25 minutes Salvador Calix MD Work Phone: Hematology/Oncology Comment on above: Primary hypercoagula ble state (HCC) (Primary Dx); CVA, old, speech/language deficit; Iron deficiency anemia secondary to blood loss (chronic); Vitamin D deficiency; Antiphospholipid antibody syndrome (HCC) Start: 05-28-2024 End: 05-28-2024 ambulatory SALVADOR CALIX Facility[facility] Start: 05-16-2024 ambulatory Evans CASAS Facility: [facility] Start: 05-14-2024 End: 05-14-2024 Telephone encounter Naga Johnson RN Hematology/Oncology Comment on above: Patient Update Start: 05-10-2024 End: 05-10-2024 Clinisync Result Encounter Wilton Montez DO Work Phone: [facility] External Department Unsolicited Start: 05-10-2024 End: 05-10-2024 Clinisync Result Encounter Wilton Montez DO Work Phone: [facility] External Department Unsolicited Start: 05-10-2024 End: 05-10-2024 ambulatory Wilton Montez [facility] Work Phone: Start: 05-10-2024 End: 05-10-2024 Departed Referred Wilton Montez DO Work Phone: [facility] Start: 05-06-2024 End: 05-06-2024 ambulatory WILTON MONTEZ Not Available Start: 05-06-2024 End: 05-06-2024 Bamboo flowsheet Wilton Montez DO Work Phone: [facility] Start: 05-06-2024 End: 05-06-2024 Bamboo flowsheet Wilton Montez DO Work Phone: [facility] Start: 05-06-2024 End: 05-06-2024 ambulatory WILTON MONTEZ Not Available Start: 05-06-2024 End: 05-06-2024 Office outpatient visit [...] External Department Unsolicited Start: 04-04-2024 End: 04-04-2024 ambulatory WILTON MONTEZ Not Available Start: 04-04-2024 End: 04-04-2024 Office outpatient visit 5 minutes [facility] Monte[facility] Nurse [facility] Comment on above: GA: 9w3d Start: 03-01-2024 End: 03-01-2024 ambulatory Wilton R MONTEZ Facility:[facility] Start: 03-01-2024 End: 03-01-2024 Patient encounter procedure Wilton R MONTEZ [facility] Start: 02-27-2024 End: 12-08-2024 ambulatory Wilton R MONTEZ Facility:[facility] Start: 02-27-2024 End: 02-28-2024 Telephone encounter Naga Johnson RN Hematology/Oncology Comment on above: Patient Question Start: 02-25-2024 End: 02-25-2024 ambulatory Wilton R MONTEZ Facility:[facility] Start: 02-25-2024 End: 02-25-2024 Patient encounter procedure Wilton R MONTEZ [facility] Start: 02-23-2024 End: 02-23-2024 ambulatory Evans CASAS Facility:[facility] Start: 02-23-2024 End: 02-23-2024 Patient encounter procedure Wilton R MONTEZ [facility] Start: 02-05-2024 End: 02-05-2024 ambulatory Evans CASAS Facility:[facility] Start: 02-05-2024 End: 02-05-2024 Patient encounter procedure Evans CASAS [facility] Start: 02-05-2024 End: 02-05-2024 Well adult monitoring check done Evans CASAS [facility] Start: 02-02-2024 End: 02-02-2024 ambulatory Anni Gudimella Facility:[facility] Start: 02-02-2024 End: 02-02-2024 Patient encounter procedure Anni Gudimella [facility] Start: 01-29-2024 ambulatory Evans CASAS Facility: [facility] Start: 01-24-2024 End: 01-25-2024 Refill Salvador Calix MD Work Phone: Hematology/Oncology Comment on above: Refill Request Start: 01-02-2024 End: 01-07-2024 Telephone encounter Salvador Calix MD Work Phone: [facility] Comment on above: Results Start: 01-02-2024 End: 01-02-2024 Office outpatient visit 15 minutes Salvador Calix MD Work Phone: Hematology/Oncology Comment on above: 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); Vitamin D deficiency; Malaise and fatigue Start: 01-02-2024 End: 01-02-2024 ambulatory SALVADOR CALIX [facility] Start: 12-17-2023 End: 12-17-2023 Telephone encounter Naga Johnson RN Hematology/Oncology Start: 12-06-2023 End: 12-06-2023 ambulatory Monica Saba Facility:[facility] Start: 12-06-2023 End: 12-06-2023 Patient encounter procedure Monica Saba [facility] Start: 12-03-2023 ambulatory Evans CASAS Facility: [facility] Start: 11-29-2023 End: 11-29-2023 ambulatory Salvador [...] anemia secondary to blood loss (chronic) Start: 11-15-2023 Telephone encounter Financial Navigator Delgado Work Phone: Hematology/Oncology Start: 11-15-2023 End: 11-16-2023 ambulatory Chair 12 González Work Phone: Hematology/Oncology Comment on above: Iron deficiency anem ia of (Primary Dx); Iron deficiency anemia secondary to blood loss (chronic) Start: 11-09-2023 End: 11-09-2023 Patient encounter procedure Monica Saba [facility] Start: 11-09-2023 End: 11-09-2023 Social Work Tamiko Krueger [facility] Hematology/Oncology Start: 11-05-2023 Telephone encounter Salvador garcia MD Work Phone: [facility] Comment on above: Appointment Start: 10-23-2023 End: 10-23-2023 ambulatory Lourdes Garber Facility:[facility] Start: 10-23-2023 End: 10-23-2023 Patient encounter procedure Lourdes Garber [facility] Start: 09-28-2023 End: 09-28-2023 Emergency department patient visit Benny Uribe [facility] Start: 09-28-2023 End: 09-28-2023 ambulatory KITTY-Galileo DUNHAM Facility:[facility] Start: 09-28-2023 End: 09-28-2023 Patient encounter procedure JANET DUNHAM [facility] Start: 09-27-2023 Telephone encounter Salvador garcia MD Work Phone: [facility] Comment on above: Appointment Reschedu led Start: 09-21-2023 End: 09-26-2023 ambulatory Salvador Calix MD Work Phone: Hematology/Oncology Comment on above: 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) Start: 09-21-2023 End: 09-26-2023 Telemedicine consultation with patient Salvador Calix MD Work Phone: Hematology/Oncology Start: 08-03-2023 End: 08-03-2023 ambulatory Evans CASAS Facility:[facility] Start: 08-03-2023 End: 08-03-2023 Patient encounter procedure Evans CASAS [facility] Start: 06-29-2023 End: 06-29-2023 ambulatory Evans CASAS Facility:[facility] Start: 06-29-2023 End: 06-29-2023 Patient encounter procedure Evans CASAS [facility] Start: 06-19-2023 ambulatory Naga Johnson [...] encounter Salvador garcia MD Work Phone: [facility] Comment on above: Results Start: 06-11-2023 Telephone encounter Salvador garcia MD Work Phone: Hematology/Oncology Comment on above: Lab Orders Start: 06-01-2023 Telephone encounter Salvador garcia MD Work Phone: [facility] Comment on above: Future Appointment Start: 05-31-2023 End: 06-01-2023 ambulatory Salvador Calix MD Work Phone: Hematology/Oncology Comment on above: Primary hypercoagula ble state (HCC) (Primary Dx); CVA, old, speech/language deficit; Hypercalcemia; Vitamin D deficiency; Iron deficiency anemia secondary to blood loss (chronic); Malaise and fatigue Start: 05-31-2023 End: 06-01-2023 Telemedicine consultation with patient Salvador Calix MD Work Phone: [facility] Start: 05-25-2023 End: 05-25-2023 ambulatory Evans CASAS Facility:[facility] Start: 05-25-2023 End: 05-25-2023 Patient encounter procedure Evans CASAS [facility] Start: 05-01-2023 End: 05-01-2023 ambulatory Evans CASAS Facility:[facility] Start: 04-27-2023 End: 04-27-2023 Lab Drop off Evans CASAS [facility] Start: 04-27-2023 End: 04-27-2023 ambulatory Evans CASAS Facility:[facility] Start: 04-25-2023 End: 04-25-2023 ambulatory Taylor Hong [facility] Start: 03-19-2023 End: 03-19-2023 ambulatory Salvador Calix MD Work Phone: Hematology/Oncology Comment on above: Primary hypercoagula ble state (HCC) (Primary Dx); Iron deficiency anemia secondary to blood loss (chronic); Vitamin D deficiency; CVA, old, speech/language deficit; Antiphospholipid antibody syndrome (HCC) Start: 03-19-2023 End: 03-19-2023 Telemedicine consultation with patient Salvador Calix MD Work Phone: [facility] Start: 02-15-2023 End: 02-15-2023 ambulatory Evans CASAS Facility[facility] Start: 02-15-2023 End: 02-15-2023 Patient encounter procedure Evans CASAS [facility] Start: 02-13-2023 ambulatory Evans CASAS Facility[facility] Start: 12-26-2022 End: 12-26-2022 ambulatory Lourdesshelby Garber [facility] Start: 12-26-2022 End: 12-26-2022 Patient encounter procedure Lourdes Garber [facility] Start: 12-22-2022 End: 12-22-2022 ambulatory Salvador Calix MD Work Phone: Hematology/Oncology Comment on above: Primary hypercoagula ble state (HCC) (Primary Dx); Iron deficiency anemia of ; Iron deficiency anemia secondary to blood loss (chronic); Vitamin D deficiency Start: 12-22-2022 End: 12-22-2022 Telemedicine consultation with patient Salvador Calix MD Work Phone: [facility] Start: 12-11-2022 Telephone encounter Salvador garcia MD Work Phone: [facility] Comment on above: Appointment Start: 10-20-2022 End: 10-20-2022 Patient encounter procedure Evans CASAS [facility] Start: 09-28-2022 End: 09-28-2022 ambulatory Salvador Calix MD Work Phone: Hematology/Oncology Comment on above: Primary hypercoagula ble state (HCC); CVA, old, speech/language deficit; Cerebral hyponatremia Start: 09-28-2022 End: 09-28-2022 Telemedicine consultation with patient Salvador Calix MD Work Phone: [facility] Start: 09-26-2022 End: 09-26-2022 Patient encounter procedure Salvador Calix [facility] Start: 09-19-2022 Telephone encounter Valeri Yan RN Hematology/Oncology Comment on above: Orders Start: 09-05-2022 End: 09-05-2022 Patient encounter procedure Wilton HERRMANN [facility] Start: 08-07-2022 End: 08-07-2022 Patient encounter procedure Wilton HERRMANN [facility] Start: 07-27-2022 End: 07-27-2022 Office outpatient [...] encounter Salvador garcia MD Work Phone: [facility] Comment on above: Results Start: 03-24-2022 End: 03-24-[address] WILTON HERRMANN Facility:[facility] Start: 03-16-2022 End: 03-17-[address] WILTON HERRMANN Facility:[facility] Start: 02-24-2022 End: 02-27-[address] WILOTN HERRMANN Facility:[facility] Start: 02-14-2022 End: 02-14-2022 ambulatory [...] Start: 11-21-2021 End: 11-22-2021 ambulatory EVANS CASAS [facility] Start: 11-21-2021 End: 11-21-2021 Subsequent hospital visit by physician Evans Casas Work Phone: [facility] Start: 11-14-2021 End: 02-13-2022 Patient encounter procedure SELF REFERRAL [facility] Start: 11-04-[address] WILTON HERRMANN [...] End: 08-31-2021 Patient encounter procedure Evans CASAS [facility] Start: 08-29-2021 End: 08-30-[address] WILTON HERRMANN Facility:[facility] Start: 08-26-2021 End: 08-27-[address] WILTON HERMRANN Facility:[facility] Start: 08-24-2021 End: 08-25-[address] WILTON HERRMANN Facility:[facility] Start: 08-22-2021 Telephone encounter Meme Easton RN Hematology/Oncology Comment on above: Patient Question Start: 08-19-2021 End: 08-19-2021 Patient encounter procedure PERNELL LONGORIA [facility] Start: 08-19-2021 End: 08-19-2021 Lab Drop off PERNELL LONGORIA [facility] Start: 08-19-2021 End: 08-19-2021 Patient encounter procedure PERNELL LONGORIA [facility] Start: 08-01-2021 Telephone encounter Salvador garcia MD Work Phone: [facility] Comment on above: Future Appointment Start: 08-01-2021 End: 08-01-2021 Nursing evaluation of patient and report Ma Nurse Delgado Chantel Work Phone: Hematology/Oncology Comment on above: Infective urethritis (Primary Dx) Start: 06-03-2018 Patient encounter procedure Haseeb Morel Facility:[facility] Start: 11-08-2017 Patient encounter procedure ERIKA LONDON Facility:[id number] Start: 05-25-2017 End: 05-26-2017 Ambulatory [facility] Procedures Date Procedure Procedure Detail Performing Clinician Start: 12-11-2024 Urnls dip stick/tablet rgnt non-auto w/o micrscp Wilton Montez DO Work Phone: Start: 11-20-2024 Urnls dip stick/tablet rgnt non-auto w/o micrscp Wilton Montez DO Work Phone: Start: 11-19-2024 Glucose quantitative blood xcpt reagent strip Star Waggoner MD Work Phone: Start: 10-30-2024 Urnls dip stick/tablet rgnt non-auto w/o micrscp Wilton Montez DO Work Phone: Start: 10-28-2024 Assay of thyroid stimulating hormone tsh Not In System Ref Prov Start: 10-06-2024 Antibody screen Wilfrid Medina MD Work Phone: Start: 10-06-2024 Drug scrn 1+ class nonchromo Not In System Ref Prov Start: 10-06-2024 Hemoglobin glycosylated a1c Scanning Pro vider External Start: 10-06-2024 HIV 1&2 AB/AG SCREEN (P24 AG) Not In System Ref Prov Start: 10-06-2024 Iaad ia hepatitis b surface antigen Not In System Ref Prov Start: 10-06-2024 TYPE AND SCREEN Not In System Ref Prov Start: 10-06-2024 ALL CBC WITH AUTO DIFF Wilton Montez DO Work Phone: Start: 10-02-2024 Urnls dip stick/tablet rgnt non-auto w/o micrscp Wilton Montez DO Work Phone: Start: 09-11-2024 US OB TRANSVAGINAL Wilton Montez DO Work Phone: Start: 07-24-2024 Urine test visual color cmprsn meths Wilton Montez DO Work Phone: Start: 06-23-2024 RECURRENT VAGINITIS (HTRX) Wilton Montez D O Work Phone: Start: 06-23-2024 Urnls dip stick/tablet rgnt non-auto w/o micrscp Wilton Montez DO Work Phone: Start: 05-10-2024 ALL CBC WITH AUTO DIFF Wilton Montez DO Work Phone: Start: 05-06-2024 Urnls dip stick/tablet rgnt non-auto w/o micrscp Wilton Montez DO Work Phone: Start: 04-12-2024 BOX TEST Wilton Montez DO Work Phone: Start: 04-12-2024 [facility] DRUG SCREEN RAPID (URINE) Wilton Montez DO Work Phone: Start: 04-04-2024 End: 04-04-2024 Urnls dip stick/tablet rgnt non-auto w/o micrscp Wilton Montez DO Work Phone: Start: 11-15-2023 Vaccine refused by patient Immunization not carried out because of patient decision Noms Nurse Start: 05-07-2022 Delivery of Products of Conception, External Approach DR WILTON HERRMANN Start: 04-05-2022 Gluc bld gluc mntr dev cleared fda spec home use [facility] Provider Start: 02-14-2022 Microscopic observation [Identifier] in Cervix by Cyto stain Wilton Herrmann DO Work Phone: Start: 11-21-2021 MISCELLANEOUS TESTING Tod Lopez MD [...] MONGE Start: 06-14-2013 Biopsy of breast PERNELL LONGORIA Start: 04-30-2006 Extraction of wisdom tooth PERNELL [employer] endoscopy for ovaria n cysts to drain PERNELL LONGORIA Vaccine refused by patient COVID -19 vaccine dose declined( Confirmed ) PERENLL [employer] Plan of Treatment Date Care Activity Detail Author Start: 2060 RSV Vaccine (1 - 1-d ose 75+ series) RSV Vaccine (1 - 1-dose 75+ series) [facility] Start: 11-19-2025 Adult BMI Screening Adult BMI Screen ing [facility] Start: 02-14-2025 Screening for malign ant neoplasm of cervix [facility] Start: 01-01-2025 End: 01-01-2025 Telemedicine consultation with patient 01/01/2025 2:30 PM EDT Telemedicine [facility] [address] [facility] [address] [place] [address] Wilfrid Medina MD [address] [facility], [address] [place] [id number] [facility] Start: 01-01-2025 End: 01-01-2025 Patient encounter procedure 01/01/2025 1:00 PM EDT Appointment [facility] [address] [facility] [address] [place] [address] [facility] Start: 12-29-2024 Influenza vaccination [facility] Start: 12-24-2024 End: 03-25-2025 CBC W Auto Differential panel - Blood COMPLETE BLOOD COUNT AND DIFFERENTIAL Lab Routine Primary hypercoagulable state (HCC) CVA, old, speech/language deficit Cerebral hyponatremia Personal history of TIA (transient ischemic attack) Expected: 12/24/2024, Expires: 03/25/2025 [facility] Work Phone: Comment on above: Expected: 12/24/2024 , Expires: 03/25/2025 Start: 12-24-2024 End: 03-25-2025 Cobalamin (Vitamin B12) [Mass/volume] in Serum or Plasma VITAMIN B12 Lab Routine Primary hypercoagulable state (HCC) CVA, old, speech/language deficit Cerebral hyponatremia Personal history of TIA (transient ischemic attack) Expected: 12/24/2024, Expires: 03/25/2025 [facility] Comment on above: Expected: 12/24/2024 , Expires: 03/25/2025 Start: 12-24-2024 End: 03-25-2025 Comprehensive metabolic 2000 panel - Serum or Plasma COMPREHENSIVE METABOLIC PANEL Lab Routine Primary hypercoagulable state (HCC) CVA, old, speech/language deficit Cerebral hyponatremia Personal history of TIA (transient ischemic attack) Expected: 12/24/2024, Expires: 03/25/2025 [facility] Comment on above: Expected: 12/24/2024 , Expires: 03/25/2025 Start: 12-24-2024 End: 03-25-2025 Ferritin [Mass/volume] in Serum or Plasma FERRITIN Lab Routine Primary hypercoagulable state (HCC) CVA, old, speech/language deficit Cerebral hyponatremia Personal history of TIA (transient ischemic attack) Expected: 12/24/2024, Expires: 03/25/2025 [facility] Comment on above: Expected: 12/24/2024 , Expires: 03/25/2025 Start: 12-24-2024 End: 03-25-2025 Iron and Iron binding capacity panel - Serum or Plasma IRON AND TIBC Lab Routine Primary hypercoagulable state (HCC) CVA, old, speech/language deficit Cerebral hyponatremia Personal history of TIA (transient ischemic attack) Expected: 12/24/2024, Expires: 03/25/2025 [facility] Comment on above: Expected: 12/24/2024 , Expires: 03/25/2025 Start: 12-22-2024 End: 12-22-2024 Follow-up encounter 12/22/2024 1:30 PM EDT Visit (SP) Office Hematology/Oncology [address] [address] Grant Negrete APRN.MEDICAL IMAGING TECHNICIAN [address] [address] 8 week follow up lab Hematology/Oncology Comment on above: 8 week follow up lab Start: 12-22-2024 End: 12-22-2024 Patient encounter procedure 12/22/2024 1:15 PM EDT Office Visit [facility] [address] [place] [address] 8 week follow up lab [facility] Comment on above: 8 week follow up lab Start: 12-17-2024 End: 12-17-2024 Telemedicine consultation with patient 12/17/2024 1:30 PM EDT Telemedicine [facility]aternal- [facility] at [facility] [address] [place] [address] Jason Saba APRN-TOR [address] [place] [address] [facility] Start: 12-11-2024 End: 12-11-2024 Patient encounter procedure 12/11/2024 9:10 AM EDT Routine [facility] [address] [place] [phone] Wilton Herrmann DO [address] [place] [address] [facility] Start: 12-03-2024 End: 12-03-2024 Telemedicine consultation with patient 12/03/2024 2:00 PM EDT Telemedicine [facility] [address] [place] [address] Jason Saba APRN-TOR [address] [place] [address] [facility] Start: 11-20-2024 End: 01-21-2025 Alpha fetoprotein, maternal Alpha fetoprotein, maternal Lab Routine Second trimester ([facility]) Expected: 11/20/2024 (Approximate), Expires: 01/21/2025 [facility] Comment on above: Expected: 11/20/2024 (Approximate), Expires: 01/21/2025 Start: 11-20-2024 End: 11-20-2024 Patient encounter procedure 11/20/2024 10:10 AM EDT Routine [facility] [address] [place] [id number] Wilton Herrmann DO [address] [place] [address] [facility] Start: 11-19-2024 End: 11-19-2024 ambulatory 11/19/2024 9:30 AM EDT Support Visit [facility] [address] [facility] [place] [address] Lorena Enciso RN [address] [facility] [address] [place] [address] Stephanie Quiros, Cindy Uribe, RD [address] [place] [address] [facility] Start: 11-12-2024 End: 10-13-2025 US MFM with or without consult US MFM with or without consult Imaging Routine Gestational diabetes mellitus (GDM), antepartum, gestational diabetes method of control unspecified Expected: 11/12/2024 (Approximate), Expires: 10/13/2025 [employer] Work Phone: Comment on above: Expected: 11/12/2024 (Approximate), Expires: 10/13/2025 Start: 10-30-2024 End: 10-30-2024 Patient encounter procedure 10/30/2024 10:40 AM EDT Routine [facility] [address] [place] [id number] Wilton Herrmann, DO [address] [place] [address] [facility] Start: 10-30-2024 End: 10-30-2024 Patient encounter procedure 10/30/2024 9:30 AM EDT Routine [facility] [address] [place] [id number] Wilton Herrmann, DO [address] [place] [address] Arrived [facility] Comment on above: Arrived Start: 10-28-2024 End: 10-28-2024 Follow-up encounter 10/28/2024 2:30 PM EDT Visit (SP) Office Hematology/Oncology [address] [address] Grant Negrete APRN.MEDICAL IMAGING TECHNICIAN [address] [place] [address] 3 month follow up Hematology/Oncology Comment on above: 3 month follow up Start: 10-28-2024 End: 10-28-2024 Patient encounter procedure 10/28/2024 2:15 PM EDT Office Visit [facility] [address] [place] [address] labs - patient prefers to come same day [facility] Comment on above: labs - patient prefe rs to come same day Start: 10-27-2024 End: 10-27-2024 Patient encounter procedure 10/27/2024 9:20 AM EDT Office Visit [facility] [address] [place] [address] Wilton Herrmann DO [address] [place] [address] [facility] Start: 10-20-2024 End: 10-20-2024 Professional / ancillary services management 10/20/2024 1:00 PM EDT Ancillary Procedure [facility] [address] [place] [address] [facility] Start: 10-10-2024 End: 10-10-2024 Follow-up encounter 10/10/2024 10:40 AM EDT Visit (SP) Office Hematology/Oncology [address] [place] [address] Salvador Calix MD [address] [place] [address] 3 month follow up Hematology/Oncology Comment on above: 3 month follow up Start: 10-10-2024 End: 10-10-2024 Patient encounter procedure 10/10/2024 10:15 AM EDT Office Visit [facility] [address] [place] [address] [place] [address] labs - patient prefers to come same day [facility] Comment on above: labs - patient prefe rs to come same day Start: 10-02-2024 End: 10-02-2025 ABO/Rh ABO/Rh Lab Routine Missed menses , unspecified gestational age Expected: 10/02/2024 (Approximate), Expires: 10/02/2025 [facility] Comment on above: Expected: 10/02/2024 (Approximate), Expires: 10/02/2025 Start: 10-02-2024 End: 10-02-2025 Blood type and Indirect antibody screen panel - Blood Type and screen Lab Routine Missed menses , unspecified gestational age Expected: 10/02/2024 (Approximate), Expires: 10/02/2025 [facility] Work Phone: Comment on above: Expected: 10/02/2024 (Approximate), Expires: 10/02/2025 Start: 10-02-2024 End: 10-02-2025 Drugs of abuse panel - Urine by Screen method Rapid drug screen, urine Lab Routine , unspecified gestational age Encounter for supervision of normal first in first trimester Expected: 10/02/2024 (Approximate), Expires: 10/02/2025 [facility] Comment on above: Expected: 10/02/2024 (Approximate), Expires: 10/02/2025 Start: 10-02-2024 End: 10-02-2024 ambulatory 10/02/2024 1:00 PM EDT Initial [facility] [address] [place] [address] [facility] Start: 10-02-2024 End: 10-02-2024 Professional / ancillary services management 10/02/2024 12:30 PM EDT Ancillary Procedure [place] [phone] [facility] Start: 08-27-2024 End: 08-27-2024 Follow-up encounter 08/27/2024 2:00 PM EDT Visit (SP) Office Hematology/Oncology [address] [address] Salvador Calix MD [address] [address] 3 month follow up Hematology/Oncology Comment on above: 3 month follow up Start: 08-27-2024 End: 08-27-2024 Patient encounter procedure 08/27/2024 1:45 PM EDT Office Visit [facility] [address] [place] [address] labs - patient prefers to come same day [facility] Comment on above: labs - patient prefe rs to come same day Start: 08-26-2024 End: 11-25-2024 25-hydroxyvitamin D3 [Mass/volume] in Serum or Plasma VITAMIN D 25 HYDROXY Lab Routine 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 Vitamin D deficiency Expected: 08/26/2024, Expires: 11/25/2024 [facility] Comment on above: Expected: 08/26/2024 , Expires: 11/25/2024 Start: 08-26-2024 End: 11-25-2024 CBC W Auto Differential panel - Blood COMPLETE BLOOD COUNT AND DIFFERENTIAL Lab Routine 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 Vitamin D deficiency Expected: 08/26/2024, Expires: 11/25/2024 [facility] Work Phone: Comment on above: Expected: 08/26/2024 , Expires: 11/25/2024 Start: 08-26-2024 End: 11-25-2024 Cobalamin (Vitamin B12) [Mass/volume] in Serum or Plasma VITAMIN B12 Lab Routine 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 Vitamin D deficiency Expected: 08/26/2024, Expires: 11/25/2024 [facility] Comment on above: Expected: 08/26/2024 , Expires: 11/25/2024 Start: 08-26-2024 End: 11-25-2024 Comprehensive metabolic 2000 panel - Serum or Plasma COMPREHENSIVE METABOLIC PANEL Lab Routine 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 Vitamin D deficiency Expected: 08/26/2024, Expires: 11/25/2024 [facility] Comment on above: Expected: 08/26/2024 , Expires: 11/25/2024 Start: 08-26-2024 End: 11-25-2024 Ferritin [Mass/volume] in Serum or Plasma FERRITIN Lab Routine 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 Vitamin D deficiency Expected: 08/26/2024, Expires: 11/25/2024 [facility] Comment on above: Expected: 08/26/2024 , Expires: 11/25/2024 Start: 08-26-2024 End: 11-25-2024 Iron and Iron binding capacity panel - Serum or Plasma IRON AND TIBC Lab Routine 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 Vitamin D deficiency Expected: 08/26/2024, Expires: 11/25/2024 [facility] Comment on above: Expected: 08/26/2024 , Expires: 11/25/2024 Start: 08-26-2024 End: 11-25-2024 Thyrotropin [Units/volume] in Serum or Plasma THYROID STIMULATING HORMONE Lab Routine 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 Vitamin D deficiency Expected: 08/26/2024, Expires: 11/25/2024 [facility] Comment on above: Expected: 08/26/2024 , Expires: 11/25/2024 Start: 07-24-2024 End: 07-24-2025 Progesterone Progesterone Lab Routine Irregular menstrual cycle Expected: 07/24/2024 (Approximate), Expires: 07/24/2025 [facility] Work Phone: Comment on above: Expected: 07/24/2024 (Approximate), Expires: 07/24/2025 Start: 07-03-2024 DTaP,Tdap and Td Vaccines (2 - Td or Tdap) DTaP,Tdap and Td Vaccines (2 - Td or Tdap) [facility] Start: 07-03-2024 DTaP/Tdap/Td vaccine (2 - Td or Tdap) DTaP/Tdap/Td vaccine (2 - Td or Tdap) [facility] Start: 07-03-2024 Urine microalbumin profile [facility] Start: 06-23-2024 End: 06-23-2025 US Pelvis US Pelvis w/ TV Imaging Routine Vaginal bleeding Vaginal discharge Pelvic pain in female Expected: 06/23/2024, Expires: 06/23/2025 [facility] Comment on above: Expected: 06/23/2024 , Expires: 06/23/2025 Start: 06-02-2024 End: 06-02-2024 Patient encounter procedure 06/02/2024 11:20 AM EST Office Visit [facility] [address] [place] [id number] Wilton Herrmann, [address] [place] [address] [facility] Start: 05-21-2024 End: 05-21-2024 Follow-up encounter 05/21/2024 2:20 PM EST Visit (SP) Office Hematology/Oncology [address] [address] Salvador Calix MD [address] [place] [address] 3 month follow up with lab Hematology/Oncology Comment on above: 3 month follow up [facility] Start: 05-21-2024 End: 05-21-2024 Patient encounter procedure 05/21/2024 2:00 PM EST Office Visit [facility] [address] [address] 3 month follow up with lab [facility] Comment on above: 3 month follow up [facility] Start: 05-06-2024 End: 05-06-2025 US for [facility] Work Phone: Comment on above: Expected: 05/06/2024 , Expires: 05/06/2025 Start: 05-06-2024 End: 05-06-2024 Patient encounter procedure 05/06/2024 1:50 PM EST Routine [facility] [address] [place] [id number] Wilton Herrmann, DO [address] [place] [address] [facility] Start: 04-09-2024 End: 04-09-2024 Follow-up encounter Hematology/Oncology Comment on above: 3 month follow up wi th lab Start: 04-09-2024 End: 04-09-2024 Patient encounter procedure [facility] Comment on above: 3 month follow up wi th lab Start: 04-04-2024 End: 04-04-2025 ABO/Rh ABO/Rh Lab Routine Missed menses , unspecified gestational age Expected: 04/04/2024 (Approximate), Expires: 04/04/2025 [facility] Comment on above: Expected: 04/04/2024 (Approximate), Expires: 04/04/2025 Start: 04-04-2024 End: 04-04-2025 Blood type and Indirect antibody screen panel - Blood Type and screen Lab Routine Missed menses , unspecified gestational age Expected: 04/04/2024 (Approximate), Expires: 04/04/2025 [facility] Work Phone: Comment on above: Expected: 04/04/2024 (Approximate), Expires: 04/04/2025 Start: 04-04-2024 End: 04-04-2025 Drugs of abuse panel - Urine by Screen method Rapid drug screen, urine Lab Routine , unspecified gestational age Encounter for supervision of normal first in first trimester Expected: 04/04/2024 (Approximate), Expires: 04/04/2025 [facility] Comment on above: Expected: 04/04/2024 (Approximate), Expires: 04/04/2025 Start: 04-04-2024 End: 04-04-2025 US Pelvis transvaginal US OB transvaginal Imaging Routine Missed menses Expected: 04/04/2024 (Approximate), Expires: 04/04/2025 [facility] Comment on above: Expected: 04/04/2024 (Approximate), Expires: 04/04/2025 Start: 04-02-2024 End: 07-02-2024 25-hydroxyvitamin D3 [Mass/volume] in Serum or Plasma VITAMIN D 25 HYDROXY Lab Routine Iron deficiency anemia secondary to blood loss (chronic) Vitamin D deficiency Malaise and fatigue Expected: 04/02/2024 (Approximate), Expires: 07/02/2024 [facility] Comment on above: Expected: 04/02/2024 (Approximate), Expires: 07/02/2024 Start: 04-02-2024 End: 01-01-2025 CBC W Auto Differential panel - Blood COMPLETE BLOOD COUNT AND DIFFERENTIAL Lab Routine Iron deficiency anemia secondary to blood loss (chronic) Vitamin D deficiency Malaise and fatigue Expected: 04/02/2024 (Approximate), Expires: 01/01/2025 [facility] Comment on above: Expected: 04/02/2024 (Approximate), Expires: 01/01/2025 Start: 04-02-2024 End: 01-01-2025 Cobalamin (Vitamin B12) [Mass/volume] in Serum or Plasma VITAMIN B12 Lab Routine Iron deficiency anemia secondary to blood loss (chronic) Vitamin D deficiency Malaise and fatigue Expected: 04/02/2024 (Approximate), Expires: 01/01/2025 [facility] Comment on above: Expected: 04/02/2024 (Approximate), Expires: 01/01/2025 Start: 04-02-2024 End: 01-01-2025 Comprehensive metabolic 2000 panel - Serum or Plasma COMPREHENSIVE METABOLIC PANEL Lab Routine Iron deficiency anemia secondary to blood loss (chronic) Vitamin D deficiency Malaise and fatigue Expected: 04/02/2024 (Approximate), Expires: 01/01/2025 [facility] Comment on above: Expected: 04/02/2024 (Approximate), Expires: 01/01/2025 Start: 04-02-2024 End: 01-01-2025 Ferritin [Mass/volume] in Serum or Plasma FERRITIN Lab Routine Iron deficiency anemia secondary to blood loss (chronic) Vitamin D deficiency Malaise and fatigue Expected: 04/02/2024 (Approximate), Expires: 01/01/2025 [facility] Comment on above: Expected: 04/02/2024 (Approximate), Expires: 01/01/2025 Start: 04-02-2024 End: 01-01-2025 Folate [Mass/volume] in Serum or Plasma FOLATE, SERUM Lab Routine Iron deficiency anemia secondary to blood loss (chronic) Vitamin D deficiency Malaise and fatigue Expected: 04/02/2024 (Approximate), Expires: 01/01/2025 [facility] Comment on above: Expected: 04/02/2024 (Approximate), Expires: 01/01/2025 Start: 04-02-2024 End: 01-01-2025 Iron and Iron binding capacity panel - Serum or Plasma IRON AND TIBC Lab Routine Iron deficiency anemia secondary to blood loss (chronic) Vitamin D deficiency Malaise and fatigue Expected: 04/02/2024 (Approximate), Expires: 01/01/2025 [facility] Comment on above: Expected: 04/02/2024 (Approximate), Expires: [...] and fatigue Expected: 01/05/2024 (Approximate), Expires: 01/01/2025 [facility] Comment on above: Expected: 01/05/2024 (Approximate), Expires: 01/01/2025 Start: 01-05-2024 End: 01-01-2025 Comprehensive metabolic 2000 panel - Serum or Plasma COMPREHENSIVE METABOLIC PANEL Lab Routine Iron deficiency anemia secondary to blood loss (chronic) Vitamin D deficiency Malaise and fatigue Expected: 01/05/2024 (Approximate), Expires: 01/01/2025 [facility] Comment on above: Expected: 01/05/2024 (Approximate), Expires: 01/01/2025 Start: 01-02-2024 End: 01-02-2024 Follow-up encounter 01/02/2024 1:45 PM EDT Visit (SP) Office Hematology/Oncology [address] [address] Salvador Calix MD [address] [address] 8 WEEK FOLLOW UP Hematology/Oncology Comment on above: 8 WEEK FOLLOW UP Start: 01-02-2024 End: 01-02-2024 Patient encounter procedure 01/02/2024 1:30 PM EDT Office Visit [facility] [address] [address] 8 WEEK FOLLOW UP [facility] Comment on above: 8 WEEK FOLLOW UP Start: 12-30-2023 Covid-19 Vaccine ( season) Covid-19 Vaccine ( season) [facility] Start: 12-30-2023 Covid-19 Vaccine ( season) Covid-19 Vaccine ( season) [facility] Start: 12-30-2023 Influenza vaccination [facility] Start: 11-29-2023 End: 11-29-2023 ambulatory 11/29/2023 1:30 PM EDT Infusion Center Hematology/Oncology [address] [address] [facility]On[facility] Comment on above: [facility] [address] Start: 11-22-2023 End: 11-22-2023 ambulatory 11/22/2023 1:30 PM EDT Infusion Center Hematology/Oncology [address] [address] [address] [address] Hematology/Oncology Comment on above: [facility] [address] Start: 11-15-2023 End: 11-15-2023 ambulatory 11/15/2023 1:30 PM EDT [facility] Hematology/Oncology [address] [place] [address] [place] [address] [address] [address] Hematology/Oncology Comment on above: [facility] [...] 04-30-2023 Behavioral Health Screening Behavioral Health Screening [facility] Start: 04-30-2023 Depression Assessment Depression Ass essment [facility] Start: 02-16-2023 End: 04-18-2023 25-hydroxyvitamin D3 [Mass/volume] [...] 12-29-2022 Covid-19 Vaccine () Covid-19 Vaccine () [facility] Start: 12-29-2022 Influenza vaccination [facility] Start: 12-04-2022 PAP TESTING PAP TESTING [facility] Start: 12-04-2022 Screening for malign ant neoplasm of cervix Pap Testing [facility] Start: 11-28-2022 End: 10-04-2023 CBC W Auto [...] 07/28/2023 Start: 04-30-2022 DEPRESSION ASSESSMENT DEPRESSION ASS [facility] Start: 01-30-2022 End: 01-30-2023 Ferritin [Mass/volume] [...] , Expires: 01/30/2023 Start: 12-29-2021 Influenza vaccination [facility] Start: 12-29-2021 End: 12-29-2021 Patient encounter procedure 12/29/2021 Routine Perinatology [facility] Start: 04-30-2021 DEPRESSION ASSESSMENT DEPRESSION ASS [facility] Start: 02-01-2021 Adult depression screening assessment DEPRESSION SCREENING [facility] Start: 12-04-2020 Screening for malign ant neoplasm of cervix Cervical Cancer Screening [facility] Start: 2020 Diabetes screen Diabetes screen [facility] Start: 10-22-2015 HPV TESTING HPV TESTING [facility] Start: 10-22-2015 Screening for malign ant neoplasm of cervix [facility] Start: 2006 Screening for malign ant neoplasm of cervix Pap smear [facility] Start: 2004 DTaP,Tdap and Td Vaccines (1 - Tdap) DTaP,Tdap and Td Vaccines (1 - Tdap) [facility] Start: 2004 Hepatitis B Vaccine (1 of 3 - 19+ 3-dose series) Hepatitis B Vaccine (1 of 3 - 19+ 3-dose series) [facility] Start: 10-22-2003 Adult BMI Screening Adult BMI Screen ing [facility] Start: 10-22-2003 Anxiety Screening Anxiety Screening [facility] Start: 10-22-2003 Depression Screening Depression Scre ening [facility] Start: 10-22-2003 HEPATITIS C SCREENING HEPATITIS C SC REENING [facility] Start: 10-22-2003 Hepatitis C screening [facility] Start: 10-22-2003 HIV SCREENING HIV SCREENING [facility] Start: 10-22-2003 HIV screening HIV Screening [facility] Start: 1997 Depression Screen Depression Screen [facility] Start: 1997 Depression Screening Depression Scre ening [facility] Start: 1997 Tobacco Screening Tobacco Screening [facility] Start: 1990 COVID-19 VACCINE (#1) COVID-19 VACCI NE (#1) [facility] Start: 1990 COVID-19 VACCINE (1) COVID-19 VACCIN E (1) [facility] Start: 1986 Varicella vaccine (1 of 2 - 2-dose childhood series) Varicella vaccine (1 of 2 - 2-dose childhood series) [facility] Start: 04-22-1986 COVID-19 Vaccine (#1) COVID-19 Vacci ne (#1) [facility] Start: 1985 HEPATITIS B (1 of 3 - 3-dose series) HEPATITIS B (1 of 3 - 3-dose series) [facility] Start: 1985 Hepatitis B Vaccine (1 of 3 - 3-dose series) Hepatitis B Vaccine (1 of 3 - 3-dose series) [facility] End: 11-21-2021 Alpha Fetoprotein, Maternal [facility] Work Phone: Comment on above: Once for 1 Occurrenc es starting 11/21/2021 until 11/21/2021 Bacteria identified in Urine by Culture Urine culture Microbiology Routine Missed menses Ordered: 04/04/2024 [facility] Comment on above: Ordered: 04/04/2024 Bacteria identified in Urine by Culture Urine culture Microbiology Routine Missed menses Ordered: 10/02/2024 [facility] Comment on above: Ordered: 10/02/2024 End: 01-30-2023 CBC W Auto Differential panel [...] menses , unspecified gestational age Ordered: 04/04/2024 [facility] Comment on above: Ordered: 04/04/2024 CBC W Auto Different ial panel - Blood CBC and differential Lab Routine Missed menses , unspecified gestational age Ordered: 10/02/2024 [facility] Comment on above: Ordered: 10/02/2024 CHLAMYDIA TRACHOMATI S (GENITO/STI) CHLAMYDIA TRACHOMATIS (GENITO/STI) Lab Routine Vaginal bleeding Vaginal discharge Ordered: 06/23/2024 [facility] Comment on above: Ordered: 06/23/2024 CHLAMYDIA TRACHOMATI S (GENITO/STI) CHLAMYDIA TRACHOMATIS (GENITO/STI) Lab Routine Vaginal discharge Ordered: 11/20/2024 [facility] Comment on above: Ordered: 11/20/2024 End: 01-30-2023 Comprehensive metabolic 2000 panel - [...] menses , unspecified gestational age Ordered: 04/04/2024 [facility] Comment on above: Ordered: 04/04/2024 Hemoglobin A1c/Hemoglobin.total in Blood Hemoglobin A1c Lab Routine Missed menses , unspecified gestational age Ordered: 10/02/2024 [facility] Comment on above: Ordered: 10/02/2024 Hepatitis B virus surface Ag [Presence] in Serum or Plasma by Immunoassay Hepatitis B surface antigen Lab Routine Missed menses , unspecified gestational age Ordered: 04/04/2024 [facility] Comment on above: Ordered: 04/04/2024 Hepatitis B virus surface Ag [Presence] in Serum or Plasma by Immunoassay Hepatitis B surface antigen Lab Routine Missed menses , unspecified gestational age Ordered: 10/02/2024 [facility] Comment on above: Ordered: 10/02/2024 Hepatitis C virus Ab [Presence] in Serum or Plasma by Immunoassay Hepatitis C antibody Lab Routine Missed menses , unspecified gestational age Ordered: 04/04/2024 [facility] Comment on above: Ordered: 04/04/2024 Hepatitis C virus Ab [Presence] in Serum or Plasma by Immunoassay Hepatitis C antibody Lab Routine Missed menses , unspecified gestational age Ordered: 10/02/2024 [facility] Comment on above: Ordered: 10/02/2024 HIV-1/HIV-2 antigen/antibody combination immunoassay HIV-1 and HIV-2 antibodies Lab Routine Missed menses , unspecified gestational age Ordered: 04/04/2024 [facility] Comment on above: Ordered: 04/04/2024 HIV-1/HIV-2 antigen/antibody combination immunoassay HIV-1 and HIV-2 antibodies Lab Routine Missed menses , unspecified gestational age Ordered: 10/02/2024 [facility] Comment on above: Ordered: 10/02/2024 Neisseria gonorrhoea e DNA [Presence] in Unspecified specimen by LELO with probe detection Neisseria gonorrhea DNA probe, direct Lab Routine Vaginal bleeding Vaginal discharge Ordered: 06/23/2024 [facility] Comment on above: Ordered: 06/23/2024 Neisseria gonorrhoea e DNA [Presence] in Unspecified specimen by LELO with probe detection Neisseria gonorrhea DNA probe, direct Lab Routine Vaginal discharge Ordered: 11/20/2024 [facility] Comment on above: Ordered: 11/20/2024 Reagin Ab [Presence] in Serum by RPR RPR Lab Routine Missed menses , unspecified gestational age Ordered: 04/04/2024 [facility] Comment on above: Ordered: 04/04/2024 Reagin Ab [Presence] in Serum by RPR RPR Lab Routine Missed menses , unspecified gestational age Ordered: 10/02/2024 [facility] Comment on above: Ordered: 10/02/2024 Rubella antibody, IgG Rubella an tibody, IgG Lab Routine Missed menses , unspecified gestational age Ordered: 04/04/2024 [facility] Comment on above: Ordered: 04/04/2024 Rubella antibody, IgG Rubella an tibody, IgG Lab Routine Missed menses , unspecified gestational age Ordered: 10/02/2024 [facility] Comment on above: Ordered: 10/02/2024 SURESWAB(R) ADVANCED VAGINITIS PLUS, TMA SURESWAB(R) ADVANCED VAGINITIS PLUS, TMA Pathology and Cytology Routine Vaginal bleeding Vaginal discharge Ordered: 06/23/2024 [facility] [employer] Work Phone: Comment on above: Ordered: 06/23/2024 SURESWAB(R) ADVANCED VAGINITIS PLUS, TMA SURESWAB(R) ADVANCED VAGINITIS PLUS, TMA Pathology and Cytology Routine Vaginal discharge Ordered: 11/20/2024 [facility] [employer] Work Phone: Comment on above: Ordered: 11/20/2024 Thyrotropin [Units/volume] in Serum or Plasma TSH Lab Routine Hypothyroidism (acquired) ([facility]) Ordered: 04/04/2024 [facility] Comment on above: Ordered: 04/04/2024 Thyrotropin [Units/volume] in Serum or Plasma TSH Lab Routine History of thyroid disease Ordered: 06/02/2024 [facility] [employer] Work Phone: Comment on above: Ordered: 06/02/2024 Thyrotropin [Units/volume] in Serum or Plasma TSH Lab Routine Thyroid disease ([facility]/H[facility]) Ordered: 10/02/2024 [facility] Comment on above: Ordered: 10/02/2024 Thyrotropin [Units/volume] in Serum or Plasma TSH Lab Routine Second trimester ([facility]) Thyroid disease Ordered: 12/11/2024 [facility] [employer] Work Phone: Comment on above: Ordered: 12/11/2024 UA DIP, URINE (POC) UA DIP, URIN E (POC) Lab Routine Infective urethritis Ordered: 08/01/2021 [facility] Work Phone: Comment on above: Ordered: 08/01/2021 Vitamin D 1,25 dihydroxy Vitamin D 1,25 dihydroxy Lab Routine Low vitamin D level Ordered: 04/04/2024 [facility] Comment on above: Ordered: 04/04/2024 End: 12-03-2025 Vitamin D 25 hydroxy Vitamin D 25 hydroxy Lab Routine Insulin controlled gestational diabetes mellitus (GDM) in second trimester 1 Occurrences starting 12/03/2024 until 12/03/2025 [facility] Work Phone: Comment on above: 1 Occurrences starti ng 12/03/2024 until 12/03/2025 [facility] Immunizations Immunization Date Immunization Notes Care Provider Jamie hare 03-05-2018 influenza virus vaccine, unspecified formulation Salvador Calix MD Work Phone: [facility] 07-03-2014 tetanus toxoid, reduced diphtheria toxoid, and acellular pertussis vaccine, adsorbed Ma Sand Work Phone: [facility] NEGATED: Highlighted row has not occurred!02-15-2023 influenza virus vaccine, unspecified formulation [facility] CASAS [facility] NEGATED: Highlighted row has not occurred!04-07-2020 influenza virus vaccine, unspecified formulation PERNELL LONGOR[facility] [place] Payers Date Payer Category Payer Medicaid [id number] 2020 Medicaid [employer] [id number] 2020-Present [phone] [address] [place] [address] Medicaid [id number] 2020 Medicaid [id number] [id number] 1985 Unknown [id number] 2.16.840.1.413541.3.579.2.356 1985 Unknown [id number] 2.16.840.1.312828.3.579.2.356 1985 Unknown [id number] 2.16.840.1.826743.3.579.2.175 1985 Unknown [id number] 2.16.840.1.487763.3.579.2.593 1985 Unknown [id number] 2.16.840.1.252425.3.579.2.593 1985 Unknown [id number] 2.16840.1.330008.3.579.2.593 1985 Unknown [id number] 2.16.840.1.762498.3.579.2.593 1985 Unknown [id number] 2.16.840.1.253661.3.579.2.593 1985 Unknown [id number] 2.16.840.1.171803.3.579.2.593 1985 Unknown [id number] 2.16840.1.730082.3.579.2.593 1985 Unknown [id number] 2.16.840.1.594024.3.579.2.593 1985 Unknown [id number] 2.16.840.1.996817.3.579.2.593 1985 Unknown [id number] 2.16.840.1.583866.3.579.2.593 1985 Unknown [id number] 2.16.840.1.565186.3.579.2.593 1985 Unknown [id number] 2.16.840.1.450911.3.579.2.593 1985 Unknown [id number] 2.16.840.1.860029.3.579.2.593 1985 Unknown [id number] 2.16.840.1.717926.3.579.2.593 1985 Unknown [id number] 2.16.840.1.553844.3.579.2.593 1985 Unknown [id number] 2.16.840.1.466779.3.579.2.593 1985 Unknown [id number] 2.16.840.1.463985.3.579.2.593 1985 Unknown [id number] 2.16.840.1.420930.3.579.2.593 1985 Unknown [id number] 2.16840.1.715863.3.579.2.593 1985 Unknown [id number] 2.16.840.1.310708.3.579.2.593 1985 Unknown [id number] 2.16.840.1.568956.3.579.2.593 1985 Unknown [id number] 2.16.840.1.893037.3.579.2.593 1985 Unknown [id number] 2.16.840.1.102705.3.579.2.593 1985 Unknown [id number] 2.16.840.1.976281.3.579.2.593 1985 Unknown [id number] 2.16.840.1.804244.3.579.2.593 1985 Unknown [id number] 2.16.840.1.187604.3.579.2.593 1985 Unknown [id number] 2.16.840.1.536879.3.579.2.727 1985 Unknown [id number] 2.16.840.1.417731.3.579.2. 1985 Unknown [id number] 2.16.840.1.779046.3.579.2 1985 Unknown [id number] 2.16.840.1.678913.3.579.2 1985 Unknown [id number] 2.16.840.1.055718.3.579.2 1985 Unknown [id number] 2.16.840.1.559646.3.579.2 1985 Unknown [id number] 2.16.840.1.496152.3.579.2 1985 Unknown [id number] 2.16.840.1.747005.3.579.2 1985 Unknown [id number] 2.16840.1.995268.3.579.2 1985 Unknown [id number] 2.16.840.1.413157.3.579.2 1985 Unknown [id number] 2.16.840.1.317934.3.579.2 1985 Unknown [id number] 2.16.840.1.752150.3.579.2 1985 Unknown [id number] 2.16.840.1.441034.3.579.2 1985 Unknown [id number] 2.16.840.1.788220.3.579.2 1985 Unknown [id number] 2.16.840.1.447120.3.579.2 1985 Unknown [id number] 2.16.840.1.416648.3.579.2 1985 Unknown [id number] 2.16.840.1.792049.3.579.2 1985 Unknown [id number] 2.16.840.1.622983.3.579.2 1985 Unknown [id number] 2.16.840.1.967106.3.579.2 1985 Unknown [id number] 2.16.840.1.926750.3.579.2 1985 Unknown [id number] 2.16.840.1.537387.3.579.2 1985 Unknown [id number] 2.16.840.1.655604.3.579.2 1985 Unknown [id number] 2.16.840.1.674810.3.579.2 1985 Unknown [id number] 2.16.840.1.603954.3.579.2 1985 Unknown [id number] 2.16840.1.797466.3.579.2 1985 Unknown [id number] 2.16.840.1.593669.3.579.2 1985 Unknown [id number] 2.16.840.1.243125.3.579.2 1985 Unknown [id number] 2.16.840.1.094073.3.579.2 1985 Unknown [id number] 2.16.840.1.797018.3.579.2 1985 Unknown [id number] 2.16.840.1.308817.3.579.2 1985 Unknown [id number] 2.16.840.1.983326.3.579.2 1985 Unknown [id number] 2.16.840.1.141765.3.579.2 1985 Unknown [id number] 2.16.840.1.291531.3.579.2.72 1985 Unknown [id number] 2.16.840.1.897216.3.579.2. 1985 Unknown [id number] 2.16.840.1.471357.3.579.2. 1985 Unknown [id number] 2.16.840.1.924436.3.579.2. 1985 Unknown [id number] 2.16.840.1.740425.3.579.2. 1985 Unknown [id number] 2.16.840.1.692712.3.579.2. 1985 Unknown [id number] 2.16840.1.766606.3.579.2. 1985 Unknown [id number] 2.16840.1.561152.3.579.2. 1985 Unknown [id number] 2.16840.1.340369.3.579.2. 1985 Unknown [id number] 2.16840.1.695318.3.579.2. 1985 Unknown [id number] 2.16840.1.673365.3.579.2.1258 1985 Unknown [id number] 2.16840.1.558456.3.579.2.1258 1985 Unknown [id number] 2.16840.1.255511.3.579.2.1258 1985 Unknown [id number] 2.16.840.1.314418.3.579.2.1258 1985 Unknown [id number] 2.16840.1.842667.3.579.2.1258 1985 Unknown [id number] 2.16.840.1.959544.3.579.2.1258 1985 Unknown [id number] 2.16.840.1.808497.3.579.2.1259 1985 Unknown [id number] 2.16.840.1.995700.3.579.2.1259 1985 Unknown [id number] 2.16.840.1.098712.3.579.2.1259 1985 Unknown [id number] 2.16.840.1.339943.3.579.2.1259 1985 Unknown [id number] 2.16.840.1.133245.3.579.2.1286 1985 Unknown [id number] 2.16.840.1.044609.3.579.2.1286 1985 Unknown [id number] 2.16.840.1.664714.3.579.2.727 1959 Self-pay 1959 Unknown [id number] 1959 Unknown [id number] 1.2.840.402022.1.13.239.2.7.3.6 94580.315 Unknown [id number] 2.16.840.1.289484.3.579.2.593 Social History Date Type Detail Facility Start: 09-10-2017 End: 02-19-2023 Tobacco smoking status NHIS Never smoked tobacco [facility] Start: 09-10-2017 End: 02-19-2023 Tobacco use and exposure Smokeless tobacco non-user [facility] Start: 08-01-2021 End: 10-28-2024 Alcohol intake Current non-drinker of alcohol (finding) [facility] Start: 1985 Sex Assigned At Not on file [facility] Start: 07-22-2021 End: 03-27-2022 Exposure to SARS-CoV-2 (event) Not sure [facility] Tobacco smoking status Never [facility] Start: 07-27-2022 End: 12-08-2024 [facility] Start: 11-21-2021 End: 11-04-2024 Alcohol intake Ex-drinker (finding) [employer] Work Phone: Start: 12-29-2016 History SDOH Alcohol Comment occasionally [employer] Work Phone: Start: 08-20-2021 [employer] Work Phone: Start: 07-27-2022 End: 12-08-2024 History of Social function [facility] Start: 04-04-2024 End: 12-11-2024 Alcoholic beverage intake Lifetime non-drinker (finding) [facility] Work Phone: Start: 11-27-2018 End: 05-13-2024 Sex Female (finding) [facility] Start: 1985 Sex [address] Female [facility] Sexual Orientation [facility] Medical Equipment Procedure Code Equipment Code Equipment Origin al Text Equipment Identifier Dates [id number] Start: 10-30-2024 End: 11-29-2024 1 each by In Vit ro route Daily Use to check FSBS four times daily [id number] Start: 10-30-2024 End: 11-29-2024 Use a new needle with each injection ( 1- 5 times per day) [id number] Start: 12-03-2024 Functional Status Date Assessment Result Facility 06-30-2024 Functional Status N/A [facility] 06-19-2024 Functional Status N/A [facility] [place] 06-09-2024 Functional Status N/A [facility] 02-05-2024 Functional Status N/A [facility] 02-02-2024 Functional Status N/A [facility] 11-09-2023 Functional Status N/A [facility] 10-23-2023 Functional Status N/A [facility] 09-28-2023 Functional Status N/A [facility] 08-03-2023 Functional Status N/A [facility] 05-25-2023 Functional Status N/A [facility] 02-15-2023 Functional Status N/A [facility] 10-20-2022 Functional Status N/A [facility] Clinical Notes 07-26-2019 to 12-11-2024 Rosikim Murray, [employer] - 12/11/2024 9:10 AM EDTTelephone Encounter - Anni Abreu, [facility] - 12/03/2024 3:01 PM EDTTelephone Encounter - Anni Abreu, [facility] - 12/03/2024 3:01 PM EDTLaboratoryRadiology Note Date & Type Note Facility 12-11-2024 History of Present illness Narrative Reason for Appointment: Patient ID: Madhu Rendon is a 39 y.o. female who presents for No chief complaint on file. Patient presents today for Return OB appointment. MEDICATIONS Current Outpatient Medications Medication Instructions Alcohol Swabs (Alcohol Prep Pad) 70 % pads 1 Pad, Topical, Daily, Use four times daily to check FSBS. Blood Glucose Monitoring Suppl ([employer] Glucometer) w/Device kit 1 kit, Does not [...] Diagnosis Date Noted 32 weeks gestation of ([facility]) 11/28/2019 Abdominal pain 06/12/2023 Acute bronchitis due to infection 06/12/2023 Acute on chronic vesicular eczema of hands and feet 11/15/2023 Anemia complicating childbirth ([facility]) 01/16/2020 Anticoagulant long-term use 02/22/2020 Antiphospholipid antibody positive 09/10/2017 Antiphospholipid antibody syndrome (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) 01/08/2020 Coagulation defect, unspecified ([facility]) 02/05/2019 Cold intolerance 11/15/2023 Deficiency of other specified B group vitamins 05/16/2019 Deviated septum 11/15/2023 Dizziness and giddiness 02/05/2019 Dry mouth 11/15/2023 Dysfunction of eustachian tube 06/12/2023 Dyspnea 06/12/2023 Elevated blood pressure reading 11/15/2023 Encounter for supervision of normal , unspecified, first trimester ([facility]) 05/29/2019 Environmental allergies 11/15/2023 Fatigue 12/29/2016 First degree perineal laceration during delivery ([facility]) 01/16/2020 Frequency of micturition 02/19/2019 Genitourinary symptoms 08/19/2021 Gestational diabetes mellitus (GDM) affecting ([facility]) 01/26/2022 H/O: hypothyroidism 11/15/2023 Hematochezia [...] anemia 01/16/2020 Irregular uterine bleeding 11/15/2023 problem ([facility]) 06/12/2023 Less than 8 weeks gestation of ([facility]) 06/05/2019 group home (current) use of 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/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 02/05/2019 Migraine without aura and without status migrainosus, not intractable 09/12/2017 Morbid obesity ([facility]) 11/15/2023 Muscle fasciculation 08/19/2021 Nasal polyps 11/15/2023 Non-smoker 11/15/2023 NEETA (obstructive sleep apnea) 11/15/2023 Other acute postprocedural pain 02/03/2019 Other general symptoms and signs 10/28/2019 Other immediate hemorrhage ([facility]) 01/16/2020 Other specified noninflammatory disorders of vagina 02/21/2019 Pain in joint 12/29/2016 Palpitations 08/26/2019 Paresthesia of bilateral legs 11/15/2023 Pelvic and perineal pain 02/01/2019 Personal history of urinary (tract) infections 01/16/2020 Pre-diabetes 11/15/2023 Primary hypercoagulable state ([facility]) 08/01/2022 Pruritus, unspecified 01/02/2020 Psychogenic hyperventilation 06/12/2023 Raised antibody titer 09/25/2017 Right lower quadrant pain 11/15/2023 Right otitis externa 11/15/2023 Salivary gland swelling 11/15/2023 Single live ([facility]) 01/15/2020 Snoring 11/15/2023 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) 12/30/2019 Suspected severe acute respiratory syndrome coronavirus 2 (SARS-CoV-2) infection 06/12/2023 SVT (supraventricular tachycardia) ([facility]) 08/26/2019 Syncope and collapse 06/03/2018 [...] drainage of cyst WISDOM TOOTH EXTRACTION 2007 [place] teeth REVIEW OF SYSTEMS Review of Systems: [...] nursing note reviewed. Exam conducted with a post adoption coordinator present. Vitals: Estimated body mass index is 33.41 kg/m as calculated from the following: Height as of 11/19/23: 5' 6 . Weight as of this encounter: 207 lb. BP: 120/70 Patient's last menstrual period was 07/28/2024. ASSESSMENT & PLAN ICD-10-CM 1. 19 weeks gestation of ([facility]) Z3A.19 POCT urinalysis dipstick manually resulted 2. Second trimester ([facility]) Z34.92 POCT urinalysis dipstick manually resulted 3. Thyroid disease E07.9 4. Multigravida of advanced maternal age in second trimester ([facility]) O09.522 5. Gestational diabetes mellitus (GDM), antepartum, gestational diabetes method of control unspecified ([facility]) O24.419 Patient presents today for a routine obstetrics appointment. Patient is currently 19w3d with a Estimated Date of Delivery: 05/04/25. Discussed concerns and answered questions in regards to BV. Discussed MFM appointment and patient has not had [...] scan and Telemedicine with MFM provider in [place]. Documented by Rsoi Murray LPN on behalf of: Wilton Herrmann DO documented in this encounter [facility] 12-03-2024 Miscellaneous Notes Left message with patient to call our office to schedule her next appt in 2 week with an ENGINEERING DESIGNER/PA. Left call back number and to press option 3 for scheduling. documented in this encounter [facility] 12-03-2024 Telephone encounter Note Left message with patient to call our office to schedule her next appt in 2 week with an ENGINEERING DESIGNER/PA. Left call back number and to press option 3 for scheduling. [facility] 12-03-2024 History of Present illness Narrative REASON FOR OFFICE VISIT: Med start 1. GDMA2; A1c 5.9% 2. On Metformin since 4th child 3. Hx GDMA2 4. AMA - cf DNA low risk boy HISTORY OF PRESENT ILLNESS: Madhu Rendon is a pleasant 39 y.o. at 18w2d due on Estimated Date of Delivery: 05/04/25. The patient is concerned about starting insulin. She is being followed at [facility] due to GDMA2. States she is following [...] and 1 capsule (500 mg total) before bedtime., Disp: , Rfl: docusate sodium (COLACE) [...] TSH 1.25 10/28/2024 No results found for: [id number] No results found for: CREATININE , BUN [...] were discussed including: preeclampsia, induced hypertension, labor, , and polyhydramnios. Potential effects on baby were [...] 20% of the blood glucose values in one week are out of range, or BG values are repeatedly elevated a specific time of day; and meal plan or activity cannot be modified to correct elevated blood glucose. Oral vs. SQ treatment Discussed oral hyperglycemic agent Metformin. Explained this medication does cross the placenta and reach the baby. Little research has been done on manager long term care effects of Metformin exposure to the fetus. [...] 6% has the lowest risk for LGA SUMMARY/RECOMMENDATION: The following is a summary of [...] labor, every 1 hr during active labor with goal BG to be less than 140 mg/dl. [...] values to us weekly by e-mail to: [email or web address] or by fax to: [phone] TIME OF CONSULTATION: 60 minutes with the patient, >50% in discussion and counseling, coordination of care which was [id number], review of records and communication back to referring provider. BRENNEN Guillen 12/03/24 1500 documented in this encounter [facility] 11-20-2024 History of Present illness Narrative Reason for Appointment: Patient ID: Madhu Rendon is a 39 y.o. female who presents for Routine Visit Patient presents today for Return OB appointment. MEDICATIONS Current Outpatient Medications Medication Instructions Alcohol Swabs (Alcohol Prep Pad) 70 % pads 1 Pad, Topical, Daily, Use four times daily to check FSBS. Blood Glucose Monitoring Suppl ([employer] Glucometer) w/Device kit 1 kit, Does not apply, Daily, Use four times daily to check FSBS. In the morning prior to breakfast & 1 hour after each meal for a total of 4times daily. docusate sodium (COLACE) 100 mg, Oral, 2 times daily enoxaparin (Lovenox) 40 MG/0.4ML injection Every 24 hours fluticasone (Flonase) 50 MCG/ACT nasal spray 1 spray, Each Nostril, Daily, Shake gently. Before first use, prime pump. After use, clean tip and replace cap. Glucose Blood (Blood Glucose Test) strip 1 strip, In Vitro, Daily, Use in the morning prior to breakfast, 1 hour after each meal for a total of 4times daily. Lancets Ultra Thin misc 1 each, In Vitro, Daily, Use to check FSBS four times daily levothyroxine (SYNTHROID) 25 mcg, Oral, Daily before [...] Diagnosis Date Noted 32 weeks gestation of ([facility]) 11/28/2019 Abdominal pain 06/12/2023 Acute bronchitis due to infection 06/12/2023 Acute on chronic vesicular eczema of hands and feet 11/15/2023 Anemia complicating childbirth ([facility]) 01/16/2020 Anticoagulant long-term use 02/22/2020 Antiphospholipid antibody positive 09/10/2017 Antiphospholipid antibody syndrome (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) 01/08/2020 Coagulation defect, unspecified ([facility]) 02/05/2019 Cold intolerance 11/15/2023 Deficiency of other specified B group vitamins 05/16/2019 Deviated septum 11/15/2023 Dizziness and giddiness 02/05/2019 Dry mouth 11/15/2023 Dysfunction of eustachian tube 06/12/2023 Dyspnea 06/12/2023 Elevated blood pressure reading 11/15/2023 Encounter for supervision of normal , unspecified, first trimester ([facility]) 05/29/2019 Environmental allergies 11/15/2023 Fatigue 12/29/2016 First degree perineal laceration during delivery ([facility]) 01/16/2020 Frequency of micturition 02/19/2019 Genitourinary symptoms 08/19/2021 Gestational diabetes mellitus (GDM) affecting ([facility]) 01/26/2022 H/O: hypothyroidism 11/15/2023 Hematochezia [...] anemia 01/16/2020 Irregular uterine bleeding 11/15/2023 problem ([facility]) 06/12/2023 Less than 8 weeks gestation of ([facility]) 06/05/2019 group home (current) use of 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/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 02/05/2019 Migraine without aura and without status migrainosus, not intractable 09/12/2017 Morbid obesity ([facility]) 11/15/2023 Muscle fasciculation 08/19/2021 Nasal polyps 11/15/2023 Non-smoker 11/15/2023 NEETA (obstructive sleep apnea) 11/15/2023 Other acute postprocedural pain 02/03/2019 Other general symptoms and signs 10/28/2019 Other immediate hemorrhage ([facility]) 01/16/2020 Other specified noninflammatory disorders of vagina 02/21/2019 Pain in joint 12/29/2016 Palpitations 08/26/2019 Paresthesia of bilateral legs 11/15/2023 Pelvic and perineal pain 02/01/2019 Personal history of urinary (tract) infections 01/16/2020 Pre-diabetes 11/15/2023 Primary hypercoagulable state ([facility]) 08/01/2022 Pruritus, unspecified 01/02/2020 Psychogenic hyperventilation 06/12/2023 Raised antibody titer 09/25/2017 Right lower quadrant pain 11/15/2023 Right otitis externa 11/15/2023 Salivary gland swelling 11/15/2023 Single live ([facility]) 01/15/2020 Snoring 11/15/2023 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) 12/30/2019 Suspected severe acute respiratory syndrome coronavirus 2 (SARS-CoV-2) infection 06/12/2023 SVT (supraventricular tachycardia) ([facility]) 08/26/2019 Syncope and collapse 06/03/2018 Other bacterial [...] drainage of cyst WISDOM TOOTH EXTRACTION 2007 [place] teeth REVIEW OF SYSTEMS Review of Systems: Review of Systems Constitutional: Negative. HENT: Negative. Eyes: Negative. Respiratory: Negative. Cardiovascular: Negative. Gastrointestinal: Negative. Genitourinary: Negative. Musculoskeletal: Negative. Skin: Negative. Neurological: Negative. All other systems reviewed and are negative. Hematological: Negative. Endocrine: Negative. Allergic/Immunologic: Negative. OBJECTIVE Objective: Physical Exam Constitutional: Appearance: Normal appearance. She is well-developed. Genitourinary: Vulva normal. Cardiovascular: Rate and Rhythm: Normal rate and [...] nursing note reviewed. Exam conducted with a post adoption coordinator present. Vitals: Estimated body mass index is 33.57 kg/m as calculated from the following: Height as of 11/19/23: 5' 6 . Weight as of this encounter: 208 lb. BP: 108/76 Patient's last menstrual period was 07/28/2024. ASSESSMENT & PLAN ICD-10-CM 1. Second trimester ([facility]) Z34.92 Alpha fetoprotein, maternal Alpha fetoprotein, maternal 2. 16 weeks gestation of ([facility]) Z3A.16 POCT urinalysis dipstick manually resulted 3. Screening, , for anatomic survey ([facility]) Z36.89 CANCELED: US OB 14+ weeks anatomy scan CANCELED: US OB 14+ weeks anatomy scan 4. Vaginal discharge N89.8 SURESWAB(R) ADVANCED VAGINITIS PLUS, TMA CHLAMYDIA TRACHOMATIS (GENITO/STI) Neisseria gonorrhea DNA probe, direct 5. Sinus headache R51.9 fluticasone (Flonase) 50 MCG/ACT nasal spray Patient presents today for a routine obstetrics appointment. Patient is currently 16w3d with a Estimated Date of Delivery: 05/04/25. Vaginal cultures obtained for routine OB care as patient has declined PAP Smear. Patient voiced that she is having sinus headaches & would like to know what to take. Patient voiced she has taken Flonase in the past and desires to have prescription sent to pharmacy. Patient is able to call office if Claritin or Zyrtec need sent to pharmacy. Flonase sent to pharmacy to help with sinus issues. RTC in 3 for routine OB appointment as patient will be seeing MFM in between today's appointment and next appointment. Documented by Rosi Murray LPN on behalf of: Wilton Herrmann DO documented in this encounter [facility] 11-19-2024 Group counseling note Patient: Madhu Rendon Date: 11/19/2024 Vitals: 11/19/24 1307 Weight: 94.8 kg (209 lb) Patient present for diabetes education group class per doctor order secondary to diagnosis of GDM and/or abnormal glucose tolerance. Food recall suggests patient typically consumes a diet of mainly convenience choices. Pt has lost 1 # to date. Weight gain goal is 11-20#. Pt appears willing to make changes. Nutrition diagnosis: inconsistent carbohydrate intake related to lack of nutrition knowledge as evidenced by food log. Instructed pt in 1900 kcal meal plan of 3 meals and 3 snacks, carbohydrate counting, label reading, dining out, and portion control. Energy content of meal plan to be adjusted as needed based on patient's blood glucose control and weight gain/loss. Discussed foods rich in iron and calcium. Encouraged pt to limit dining out and measure carbohydrates for 2 days. To send 2 day food log and blood glucoses. Please refer to health habits for other goals. Face to face time was 100 minutes. [employer] Work Phone: 11-19-2024 Miscellaneous Notes Patient: Madhu Rendon Date: 11/19/2024 Vitals: 11/19/24 1307 Weight: 94.8 kg (209 lb) Patient present for diabetes education group class per doctor order secondary to diagnosis of GDM and/or abnormal glucose tolerance. Food recall suggests patient typically consumes a diet of mainly convenience choices. Pt has lost 1 # to date. Weight gain goal is 11-20#. Pt appears willing to make changes. Nutrition diagnosis: inconsistent carbohydrate intake related to lack of nutrition knowledge as evidenced by food log. Instructed pt in 1900 kcal meal plan of 3 meals and 3 snacks, carbohydrate counting, label reading, dining out, and portion control. Energy content of meal plan to be adjusted as needed based on patient's blood glucose control and weight gain/loss. Discussed foods rich in iron and calcium. Encouraged pt to limit dining out and measure carbohydrates for 2 days. To send 2 day food log and blood glucoses. Please refer to health habits for other goals. Face to face time was 100 minutes. [facility] 11-05-2024 Telephone encounter Note Pt updated. She reports she is unable to take aspirin. It makes my electrolytes go out of whack. I didn't take with my previous pregnancies and I am not comfortable taking this time either. She will continue with Lovenox, as recommended. Pt is scheduled for appt with high lift driver, 11/19/24, [facility]. She denies further questions, needs or concerns for our care team at this time. Appt verified for RTC Naga Johnson RN [facility] 11-05-2024 Miscellaneous Notes Pt updated. She reports she is unable to take aspirin. It makes my electrolytes go out of whack. I didn't take with my previous pregnancies and I am not comfortable taking this time either. She will continue with Lovenox, as recommended. Pt is scheduled for appt with high lift driver, 11/19/24, [facility]. She denies further questions, needs or concerns for our care team at this time. Appt verified for RTC Naga Johnson RN Spoke with Dr. Moscoso and she is to continue Lovenox 40 daily and add baby asa (81 mg) daily. Please also make sure she is following OB High risk. Labs acceptable at this time. Will monitor. Grant Sofia APRN.MEDICAL IMAGING TECHNICIAN Grant saw this patient last and will be able to advise better of the plan of care. Abbie Jimenez PA-C Labs resulted. Please advise. Valeri Yan, RN Images from the original note were not included. documented in this encounter [facility] 11-05-2024 Telephone encounter Note Spoke with Dr. Moscoso and she is to continue Lovenox 40 daily and add baby asa (81 mg) daily. Please also make sure she is following OB High risk. Labs acceptable at this time. Will monitor. ThanksGrant APRN.MEDICAL IMAGING TECHNICIAN [facility] Work Phone: 11-04-2024 Telephone encounter Note Grant saw this patient last and will be able to advise better of the plan of care. Abbie Jimenez PA-C [facility] Work Phone: 10-30-2024 History of Present illness Narrative Reason for Appointment: Patient ID: Madhu Rendon is a 39 y.o. female who presents for Routine Visit Patient presents today for Return OB appointment. MEDICATIONS Current Outpatient Medications Medication Instructions enoxaparin (Lovenox) 40 MG/0.4ML injection Every 24 hours levothyroxine (SYNTHROID) 25 mcg, Oral, Daily before [...] Diagnosis Date Noted 32 weeks gestation of ([facility]) 11/28/2019 Abdominal pain 06/12/2023 Acute bronchitis due to infection 06/12/2023 Acute on chronic vesicular eczema of hands and feet 11/15/2023 Anemia complicating childbirth ([facility]) 01/16/2020 Anticoagulant long-term use 02/22/2020 Antiphospholipid antibody positive 09/10/2017 Antiphospholipid antibody syndrome (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) 01/08/2020 Coagulation defect, unspecified ([facility]) 02/05/2019 Cold intolerance 11/15/2023 Deficiency of other specified B group vitamins 05/16/2019 Deviated septum 11/15/2023 Dizziness and giddiness 02/05/2019 Dry mouth 11/15/2023 Dysfunction of eustachian tube 06/12/2023 Dyspnea 06/12/2023 Elevated blood pressure reading 11/15/2023 Encounter for supervision of normal , unspecified, first trimester ([facility]) 05/29/2019 Environmental allergies 11/15/2023 Fatigue 12/29/2016 First degree perineal laceration during delivery ([facility]) 01/16/2020 Frequency of micturition 02/19/2019 Genitourinary symptoms 08/19/2021 Gestational diabetes mellitus (GDM) affecting ([facility]) 01/26/2022 H/O: hypothyroidism 11/15/2023 Hematochezia [...] anemia 01/16/2020 Irregular uterine bleeding 11/15/2023 problem ([facility]) 06/12/2023 Less than 8 weeks gestation of ([facility]) 06/05/2019 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 02/05/2019 Migraine without aura and without status migrainosus, not intractable 09/12/2017 Morbid obesity ([facility]) 11/15/2023 Muscle fasciculation 08/19/2021 Nasal polyps 11/15/2023 Non-smoker 11/15/2023 NEETA (obstructive sleep apnea) 11/15/2023 Other acute postprocedural pain 02/03/2019 Other general symptoms and signs 10/28/2019 Other immediate hemorrhage ([facility]) 01/16/2020 Other specified noninflammatory disorders of vagina 02/21/2019 Pain in joint 12/29/2016 Palpitations 08/26/2019 Paresthesia of bilateral legs 11/15/2023 Pelvic and perineal pain 02/01/2019 Personal history of urinary (tract) infections 01/16/2020 Pre-diabetes 11/15/2023 Primary hypercoagulable state ([facility]) 08/01/2022 Pruritus, unspecified 01/02/2020 Psychogenic hyperventilation 06/12/2023 Raised antibody titer 09/25/2017 Right lower quadrant pain 11/15/2023 Right otitis externa 11/15/2023 Salivary gland swelling 11/15/2023 Single live ([facility]) 01/15/2020 Snoring 11/15/2023 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) 12/30/2019 Suspected severe acute respiratory syndrome coronavirus 2 (SARS-CoV-2) infection 06/12/2023 SVT (supraventricular tachycardia) (HCC) 08/26/2019 Syncope and collapse 06/03/2018 Other bacterial [...] drainage of cyst WISDOM TOOTH EXTRACTION 2007 [place] teeth REVIEW OF SYSTEMS Review of Systems: [...] nursing note reviewed. Exam conducted with a post adoption coordinator present. Vitals: Estimated body mass index is 33.81 kg/m as calculated from the following: Height as of 11/19/23: 5' 6 . Weight as of this encounter: 209 lb 8 oz. BP: 110/76 Patient's last menstrual period was 07/28/2024. ASSESSMENT & PLAN ICD-10-CM 1. Second trimester ([facility]) Z34.92 POCT urinalysis dipstick manually resulted 2. 13 weeks gestation of ([facility]) Z3A.13 3. Thyroid disease E07.9 4. Multigravida of advanced maternal age in second trimester ([facility]) O09.522 New OB: Patient presents today for 1st time obstetrics appointment with provider. Patient is currently 13w3d . Patients history has been reviewed in great detail including any potential risks. Patient stated she currently has no complaints. Expectations throughout regarding labs, ultrasounds, and appointments have been discussed with the patient in detail. It was reiterated that the patient is to drink 6-8 glasses of water a day, eat 6 small meals a day, do not consume raw or undercooked meat, and stay away from [facility]. Patient has been consulted regarding any further do's and don'ts of . Patient voiced understanding and all questions and concerns were answered. Patient is currently on 40 Lovenox and will be referred to [facility] for recommendations/co-management throughout . Discussed concerns in regards to bleeding with Lovenox and possible dosage changes throughout due to recommendations from high risk providers. Patient is currently checking FSBS and will bring log with her next visit. Include Diabetic Management with MFM Referral. Orders Placed This Encounter Procedures POCT urinalysis dipstick manually resulted Follow Up: Patient is to return in 4 weeks for routine OB appointment. Documented by Rosi Murray LPN on behalf of: Wilton Herrmann DO documented in this encounter [facility] 10-30-2024 Telephone encounter Note Labs resulted. Please advise. Valeri Yan RN [facility] 10-28-2024 Telephone encounter Note Images from the original note were not included. [facility] 10-28-2024 Note HNO ID: [id number] Author: GRANT NEGRETE APRN.MEDICAL IMAGING TECHNICIAN Service: ? Author Type: Nurse Practitioner Type: Progress Notes Filed: 10/29/2024 21:44 Note Text: NAME: Madhu Rendon CLINIC NO.: [id number] DATE OF SERVICE: October 28, 2024 (Arsh) Some elements in this clinic note that are critical to medical decision making have been carefully reviewed and included from a prior clinic note dated: October 10, 2024 (Levon) Additional Clinicians involved in Madhu Rendon's care: Jorge Mcwilliams, Humaira Gaviria, Dr. Boothe CC: Hypercoag [facility] CASE SUMMARY / ASSESSMENT: 39 year old woman presents with a prior history of CVA in 2016 and an antiphospholipid antibody that was identified much later in 2018. These were found in [place], [place]. I don't have access to these [...] a target-like rash shortly before presenting to [facility] in 2016 with headaches and was diagnosed with a CVA. - She saw Dr. Baugh but no relevant conclusion was made. She remains on Lovenox - still breast feeding. No clinical need to recheck her APL Ab or Cardiolipin Ab's as results will not change our treatment plan despite her recent miscarriage. Placental evaluation is still pending as of April 2024. SUMMARIZED PLAN OF CARE: Triage to call with lab results Continue Lovenox - patient prefers 40 mg (rather than rec 80mg) Encouraged her to reconsider Resume B12 RTC in 8 weeks Labs same day ___ HPI: Updated Visit, 10/28/2024: Patient with a history of CVA in 2015 and TIA in 2017, currently managed with Lovenox 40 mg daily, presents for evaluation. She is 13 weeks and has a history of multiple miscarriages, including a recent one at 14 weeks in April and another at 17 weeks over 10 years ago due to placental issues. She reports experiencing morning sickness and constipation, which prevented her from taking vitamins for a month. She has recently resumed vitamins and plans to restart vitamin D supplementation but has not been taking the prescribed sublingual B12 due to previous side effects of feeling jittery and weird. She also notes the appearance of little red dots on her skin, which she has not observed before. Recent labs show a WBC count of 9.52 x 109/L, hemoglobin at 13 g/dL, and platelets at 327 x 109/L. Results for kidney, liver, electrolytes, thyroid, iron, ferritin, vitamin D, and vitamin B levels are pending. Updated Visit, May 28, 2024: Madhu returns today for a follow up. She unfortunately had a miscarriage, at 14 weeks, earlier this month. She required surgical intervention to remove the placenta - held Lovenox for 2 days prior, has resumed now. She endorses fatigue, is improving now. Today's Hgb is slightly lower than her normal but is within normal range. Iron studies are pending. She had one instance of prolonged bleeding following a lab draw. I encouraged her to continue supplemental B12 at home. Updated Visit, January 02, 2024: Madhu returns [...] feeding. Numbness and vision changes both have (more content not included)... [facility] 10-28-2024 History of Present illness Narrative Images from the original note were not included. NAME: Madhu Rendon CLINIC NO.: [id number] DATE OF SERVICE: October 28, 2024 (Arsh) Some elements in this clinic note that are critical to medical decision making have been carefully reviewed and included from a prior clinic note dated: October 10, 2024 (Levon) Additional Clinicians involved in Madhu Rendon's care: Drs. Herrmann, Jorge Monge, Humaira Gaviria, Dr. Boothe CC: Hypercoag [facility] CASE SUMMARY / ASSESSMENT: 39 year old woman presents with a prior history of CVA in 2016 and an antiphospholipid antibody that was identified much later in 2018. These were found in [place], [place]. I don't have access to these [...] a target-like rash shortly before presenting to [facility] in 2016 with headaches and was diagnosed with a CVA. - She saw Dr. Baugh but no relevant conclusion was made. She remains on Lovenox - still breast feeding. No clinical need to recheck her APL Ab or Cardiolipin Ab's as results will not change our treatment plan despite her recent miscarriage. Placental evaluation is still pending as of April 2024. SUMMARIZED PLAN OF CARE: Triage to call with lab results Continue Lovenox - patient prefers 40 mg (rather than rec 80mg) Encouraged her to reconsider Resume B12 RTC in 8 weeks Labs same day HPI: Updated Visit, 10/28/2024: Patient with a history of CVA in 2016 and TIA in 2018, currently managed with Lovenox 40 mg daily, presents for evaluation. She is 13 weeks and has a history of multiple miscarriages, including a recent one at 14 weeks in April and another at 17 weeks over 10 years ago due to placental issues. She reports experiencing morning sickness and constipation, which prevented her from taking vitamins for a month. She has recently resumed vitamins and plans to restart vitamin D supplementation but has not been taking the prescribed sublingual B12 due to previous side effects of feeling jittery and weird. She also notes the appearance of little red dots on her skin, which she has not observed before. Recent labs show a WBC count of 9.52 x 10^9/L, hemoglobin at 13 g/dL, and platelets at 327 x 10^9/L. Results for kidney, liver, electrolytes, thyroid, iron, ferritin, vitamin D, and vitamin B levels are pending. Updated Visit, May 28, 2024: Madhu returns today for a follow up. She unfortunately had a miscarriage, at 14 weeks, earlier this month. She required surgical intervention to remove the placenta - held Lovenox for 2 days prior, has resumed now. She endorses fatigue, is improving now. Today's Hgb is slightly lower than her normal but is within normal range. Iron studies are pending. She had one instance of prolonged bleeding following a lab draw. I encouraged her to continue supplemental B12 at home. Updated Visit, January 02, 2024: Madhu returns [...] soon. When she had a stroke in [place], she had symptoms up to a month [...] and stayed on Lovenox Hgb 13.1 @ [facility] Recommended ER if persisting bleeding but she [...] and at age 69. Both lived in [place], [place] - but she was adopted. She was not able to see ID in October and will be seeing Dr. Baugh next week. Also will have her see Dr. Hamlin for her clotting disorder and make any other recommendations to optimize her treatment. Updated Visit, October 08, 2020: Telephone only Received call from pt stating she was seen in [facility] ER for numbness in her chest, throat, and extremities, and sob which has been worsening over the last week. We arranged a telephone visit for her to review questions with me. Madhu Rendon is a 34 year old female seen for Hypercoagulable state and recent concerns and symptoms that required her to be seen at [facility] ER. She went to the ER with Gradual worsening of breathing after progressive tingling of fingers and legs. She currently remains very fatigued even though she is sleeping well. Now recalls that before her stroke she remembers having a bull's eye rash and was seen with severe headaches in [place], [place] - was found to have a [...] a root canal and was sent to [facility] for MRI which was negative but non-contrasted. [...] history goes back to January 2016 in [facility] where she had persisting headaches and slurred speech followed by lower extremity weakness. This took a few months to resolve and she is back to her normal state of being but some point in time during her her next she was seen by Dr. Humera Hyde in [place] as well and was found to have [...] PERFORMANCE STATUS: 0 PHYSICAL EXAMINATION: Vitals: BP 122/77 Pulse 82 Temp (Src) 97 (Temporal) Resp 16 Wt 207 lb 7.3 oz (94.1kg) SpO2 100% LMP 10/28/2024 Body surface area is 2.09 meters squared. Exam limited to gross visualization [...] MEDICATIONS: enoxaparin (LOVENOX) 40 mg/0.4 mL INJECT 1 SYRINGE SUBCUTANEOUSLY EVERY 24 HOURS metFORMIN ER (GLUCOPHAGE XR) 500 mg 24 hr tablet multivitamin tablet Take 1 tablet by mouth once daily. progesterone vaginal suppository 200 mg (CPD) Use 200 mg vaginally. Unwrap and insert as directed. polyethylene glycol 3350 (MIRALAX PO) Take by mouth. docusate sodium (COLACE PO) Take by mouth. famotidine (PEPCID) 20 mg tablet Take 1 tablet by mouth once daily. To take prior to infusion LABORATORY VALUES: WBC (k/uL) Date Value 10/28/2024 9.52 RBC (m/uL) Date Value 10/28/2024 4.25 Hemoglobin (g/dL) Date Value 10/28/2024 13.0 Hematocrit (%) Date Value 10/28/2024 36.9 MCV (fL) Date Value 10/28/2024 86.8 MCH (pg) Date Value 10/28/2024 30.6 MCHC (g/dL) Date Value 10/28/2024 35.2 RDW-CV (%) Date Value 10/28/2024 14.5 Platelet Count (k/uL) Date Value 10/28/2024 327 MPV (fL) Date Value 10/28/2024 9.8 Glucose (mg/dL) Date Value 10/28/2024 101 (H) BUN (mg/dL) Date Value 10/28/2024 7 Creatinine (mg/dL) Date Value 10/28/2024 0.60 Sodium (mmol/L) Date Value 10/28/2024 133 (L) Potassium (mmol/L) Date Value 10/28/2024 3.5 (L) Chloride (mmol/L) Date Value 10/28/2024 99 CO2 (mmol/L) Date Value 10/28/2024 22 Protein, Total (g/dL) Date Value 10/28/2024 7.6 Albumin (g/dL) Date Value 10/28/2024 4.4 Calcium, Total (mg/dL) Date Value 10/28/2024 9.9 Alkaline Phosphatase (U/L) Date Value 10/28/2024 55 Bilirubin, Total (mg/dL) Date Value 10/28/2024 0.2 AST (U/L) Date Value 10/28/2024 13 ALT (U/L) Date Value 10/28/2024 18 DIAGNOSIS: (D68.59) Primary hypercoagulable state (HCC) (primary encounter diagnosis) (I69.328) CVA, old, speech/language deficit (E87.1) Cerebral hyponatremia (Z86.73) Personal history of TIA (transient ischemic attack) PAST MEDICAL HISTORY Diagnosis Date Antiphospholipid antibody syndrome (HCC) Asthma (HCC) Bilateral ovarian cysts Blood in stool Clear vaginal discharge Complex cyst of right ovary Dysuria during (HCC) Fluid imbalance History of miscarriage, currently (HCC) Hypercoagulable state (HCC) Iron deficiency anemia of (HCC) 03/27/2022 Iron deficiency anemia secondary to blood [...] which included preparing to see the patient, [id number] patient care, completing clinical documentation, obtaining and/or reviewing separately obtained history, performing a medically appropriate examination, counseling and educating the patient/family/caregiver, ordering medications, tests, or procedures, independently interpreting results (not separately reported), and communicating results to the patient/family/caregiver. Grant Negrete APRN.TOR [facility] Provided at: [place], [place] CC: MD Wilton Day, [address] [place] [address] Humaira Gaviria MD [address] [place] [address] [place] [address] MD Cosmo Kingston MD Michael Blank, MD documented in this encounter [facility] 10-24-2024 Telephone encounter Note New orders may need placed for appt on 10/28. Valery Dunham MA [facility] 10-24-2024 Miscellaneous Notes New orders may need placed for appt on 10/28. Valery Dunham MA documented in this encounter [facility] 10-13-2024 Miscellaneous Notes Attempted to contact patient x3, call cannot be completed, cannot receive calls at this time. Unable to leave a voicemail. documented in this encounter [facility] 10-13-2024 Telephone encounter Note Attempted to contact patient x3, call cannot be completed, cannot receive calls at this time. Unable to leave a voicemail. [facility] 10-02-2024 History of Present illness Narrative Reason for Appointment: Patient ID: [...] due to stenosis of middle cerebral artery ([facility]) 02/22/2020 Cervicalgia 02/05/2019 Chromosomal [...] Less than 8 weeks gestation of 06/05/2019 group home (current) use of 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/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 02/05/2019 Migraine without aura and without status migrainosus, not intractable ([facility]) 09/12/2017 Morbid obesity ([facility]) 11/15/2023 Muscle fasciculation 08/19/2021 [...] 01/16/2020 Pre-diabetes 11/15/2023 Primary hypercoagulable state ([facility]) 08/01/2022 Pruritus, unspecified 01/02/2020 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[facility]) 06/12/2023 Raised antibody titer 09/25/2017 Right lower quadrant pain 11/15/2023 Right otitis externa 11/15/2023 Salivary gland swelling 11/15/2023 Single live 01/15/2020 Snoring 11/15/2023 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) 12/30/2019 Suspected severe acute respiratory syndrome coronavirus 2 (SARS-CoV-2) infection 06/12/2023 SVT (supraventricular tachycardia) ([facility]) 08/26/2019 Syncope and collapse 06/03/2018 Other bacterial infections of unspecified site 06/27/2019 Thrombocytopenia, unspecified ([facility]) 11/20/2019 Hypoglycemia 06/12/2023 Unspecified [...] Antiphospholipid syndrome (CMS/HCC) Gestational diabetes Heartburn Hypothyroid (CMS/HCC) Stroke (CMS/HCC) Family History Problem Relation Name Age of [...] drainage of cyst WISDOM TOOTH EXTRACTION 2007 [place] teeth Allergies Allergen Reactions Ciprofloxacin GI intolerance Ciprofloxacin-Fluocinolone Pf Other Reaction(s): Other: See Comments Dizziness, weakness sweating Lactose Other Reaction(s): GI Disturbance, GI Upset Diarrhea Diarrhea Lactose Intolerance (Gi) Other Reaction(s): Illness Octacosanol Other Reaction(s): Other (See Comments) Other Other seasonal Vitals: Estimated body mass index is 33.89 kg/m as calculated from the following: Height [...] Rapid drug screen, urine; Future Thyroid disease ([facility]/HCC) - [facility]SH Nurse Note: Patient desires to have [place] [employer] to one. Pt was advised to [...] or undercooked meat, and stay away from [facility]. Patient has also been advised to not [...] Lala Hess MA documented in this encounter [facility] 09-07-2024 Note Patient Education Infectious Disease Upper Respiratory Infection, Adult An upper respiratory infection (URI) is a common viral infection of the nose, throat, and upper air passages that lead to the lungs. The most common type of URI is the common cold. URIs usually get better on their own, without medical treatment. What are the causes? A URI is caused by a virus. You may catch a virus by: ??? Breathing in droplets from an infected person's cough or sneeze. ??? Touching something that has been exposed to the virus (is contaminated) and then touching your mouth, nose, or eyes. What increases the risk? You are more likely to get a URI if: ??? You are very young or very old. ??? You have close contact with others, such as at work, school, or a health care facility. ??? You smoke. ??? You have long-term (chronic) heart or lung disease. ??? You have a weakened disease-fighting system (immune system). ??? You have nasal allergies or asthma. ??? You are experiencing a lot of stress. ??? You have poor nutrition. What are the signs or symptoms? A URI usually involves some of the following symptoms: ??? Runny or stuffy (congested) nose. ??? Cough. ??? Sneezing. ??? Sore throat. ??? Headache. ??? Fatigue. ??? Fever. ??? Loss of appetite. ??? Pain in your forehead, behind your eyes, and over your cheekbones (sinus pain). ??? Muscle aches. ??? Redness or irritation of the eyes. ??? Pressure in the ears or face. How is this diagnosed? This condition may be diagnosed based on your medical history and symptoms, and a physical exam. Your health care provider may use a swab to take a mucus sample from your nose (nasal swab). This sample can be tested to determine what virus is causing the illness. How is this treated? URIs usually get better on their own within 7?10 days. Medicines cannot cure URIs, but your health care provider may recommend certain medicines to help relieve symptoms, such as: ??? Otas-iuj-dmbxcad cold medicines. ??? Cough suppressants. Coughing is a type of defense against infection that helps to clear the respiratory system, so take these medicines only as recommended by your health care provider. ??? Fever-reducing medicines. Follow these instructions at home: Activity ??? Rest as needed. ??? If you have a fever, stay home from work or school until your fever is gone or until your health care provider says your URI cannot spread to other people (is no longer contagious). Your health care provider may have you wear a face mask to prevent your infection from spreading. Relieving symptoms ??? Gargle with a mixture of salt and water 3?4 times a day or as needed. To make salt water, completely dissolve ??1 tsp (3?6 g) of salt in 1 cup (237 mL) of warm water. ??? Use a cool-mist humidifier to add moisture to the air. This can help you breathe more easily. Eating and drinking ??? Drink enough fluid to keep your urine pale yellow. ??? Eat soups and other clear broths. General instructions ??? Take lzvj-zad-tmodxrd and prescription medicines only as told by your health care provider. These include cold medicines, fever reducers, and cough suppressants. ??? Do not use any products that contain nicotine or tobacco. These products include cigarettes, chewing tobacco, and vaping devices, such as e-cigarettes. If you need help quitting, ask your health care provider. ??? Stay away from secondhand smoke. ??? Stay up to date on all immunizations, including the yearly (annual) flu vaccine. ??? Keep all follow-up visits. This is important. How to prevent the spread of infection to others URIs can be contagious. To prevent the infection from spreading: ??? Wash your hands with soap and water for at least 20 seconds. If soap and water are not available, use hand elevated motorman. ??? Avoid touching your mouth, face, eyes, or nose. ??? Cough or sneeze into a tissue or your sleeve or elbow instead of into your hand or into the air. Contact a health care provider if: ??? You are getting worse instead of better. ??? You have a fever or chills. ??? Your mucus is brown or red. ??? You have yellow or brown discharge coming from your nose. ??? You have pain in your face, especially when you bend forward. ??? You have swollen neck glands. ??? You have pain while swallowing. ??? You have white areas in the back of your throat. Get help right away if: ??? You have shortness of breath that gets worse. ??? You have severe or persistent: ? Headache. ? Ear pain. ? Sinus pain. ? Chest pain. ??? You have chronic lung disease along with any of the following: ? Making high-pitched whistling sounds when you breathe, most often when you breathe out (wheezing). ? Prolonged cough (more than 14 days). ? Coughing up blood. ? A change in your usual mucus. ??? You have a stiff neck. ? (more content not included)... [facility] 09-03-2024 Miscellaneous Notes Pt notified and appt for September. She denies any further questions, needs or concerns at this time. Naga Johnson RN No change in meds. Pt left a voicemail to inform she is approximately 5 weeks . She is asking any recommendations on med changes. Pt missed today's appt. Called and left VM to please call and schedule missed follow up MUNIRA. Fely: Please advise Naga Johnson RN documented in this encounter [facility] 09-03-2024 Telephone encounter Note Pt notified and appt for September. She denies any further questions, needs or concerns at this time. Naga Johnson RN [facility] 09-03-2024 Telephone encounter Note No change in meds. [facility] 09-02-2024 Telephone encounter Note Pt left a voicemail to inform she is approximately 5 weeks . She is asking any recommendations on med changes. Pt missed today's appt. Called and left VM to please call and schedule missed follow up MUNIRA. Fely: Please advise Naga Johnson RN [facility] 08-26-2024 Telephone encounter Note Patient has an appt on 08/27/24. Would you like labs, if so place orders. Serina Dawson MA [facility] 08-26-2024 Miscellaneous Notes Patient has an appt on 08/27/24. Would you like labs, if so place orders. Serina Dawson MA documented in this encounter [facility] 08-05-2024 Evaluation + Plan note Future Scheduled [id number] 08/05/2488WliE5x 11/04/24CT Soft Tissue Neck w/ Contrast 11/12/23 [facility] 07-24-2024 History of Present illness Narrative Reason for Appointment: Patient ID: Madhu Rendon is a 38 y.o. female who presents for Irregular Cycles Patient presents today for Consult appointment. 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 Coagulation defect, unspecified ([facility]) 02/05/2019 Cold intolerance 11/15/2023 [...] Less than 8 weeks gestation of 06/05/2019 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 02/05/2019 Migraine without aura and without status migrainosus, not intractable ([facility]) 09/12/2017 Morbid obesity ([facility]) 11/15/2023 Muscle fasciculation 08/19/2021 [...] 01/16/2020 Pre-diabetes 11/15/2023 Primary hypercoagulable state ([facility]) 08/01/2022 Pruritus, unspecified 01/02/2020 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[facility]) 06/12/2023 Raised antibody titer 09/25/2017 Right lower quadrant pain 11/15/2023 Right otitis externa 11/15/2023 Salivary gland swelling 11/15/2023 Single live 01/15/2020 Snoring 11/15/2023 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) 12/30/2019 Suspected severe acute respiratory syndrome coronavirus 2 (SARS-CoV-2) infection 06/12/2023 SVT (supraventricular tachycardia) ([facility]) 08/26/2019 Syncope and collapse 06/03/2018 Other bacterial infections of unspecified site 06/27/2019 Thrombocytopenia, unspecified ([facility]) 11/20/2019 Hypoglycemia 06/12/2023 Unspecified [...] Antiphospholipid syndrome (CMS/HCC) Gestational diabetes Heartburn Hypothyroid ([facility]/HCC) Stroke ([facility]) HISTORY PAST MEDICAL HISTORY SOCIAL HISTORY Past Medical History: Diagnosis Date AMA (advanced maternal age) multigravida 35+ Anemia Antiphospholipid syndrome (CMS/HCC) Gestational diabetes Heartburn Hypothyroid (CMS/HCC) Stroke (CMS/[facility]) Social History Tobacco Use Smoking [...] drainage of cyst WISDOM TOOTH EXTRACTION 2007 [place] teeth REVIEW OF SYSTEMS Review of Systems: Review of Systems All other systems reviewed and are negative. OBJECTIVE Objective: Physical Exam Constitutional: Appearance: Normal [...] nursing note reviewed. Exam conducted with a post adoption coordinator present. Vitals: Estimated body mass index is 34.44 kg/m as calculated from the following: Height as of 11/19/23: 5' 6 . Weight as of this encounter: 213 lb 6.4 oz. BP: 120/84 Patient's last menstrual period was 07/04/2023. ASSESSMENT & PLAN ICD-10-CM 1. Irregular menstrual cycle N92.6 POCT , urine manually resulted Patient presents today to discuss cycles as they start & are spotty. They last a few days and then stop and start up days later. Patient voiced that she has had some concerns with Bradycardia while on cycle and is scheduled for EKG and heart monitor for 48 hours. Patient is not currently on her cycle and advised to discuss with PCP to bring up that this happens on her cycle & see what their thoughts are and if she would need to wear monitor long or plan of care. Discuss resetting cycle with progesterone & at this time patient would like to hold off on medication at this time. Patient to have Progesterone level drawn on Day 21 of cycle to ensure ovulation. Patient voiced that she has been taking ovulation kits at home. Discussed timing of ovulation and that patient could ovulate earlier or later than normal . Patient able to call office if she desires to have provera sent to pharmacy to initiate cycle. Patient is able to call office if she desires to have ultrasound ordered as well. Patient to schedule annual appointment for in 3 months. Patients questions have already been answered in regards to blood thinners and . Documented by Rosi Murray LPN on behalf of: Wilton Herrmann DO documented in this encounter [facility] 07-08-2024 Note Patient Education Emergency Medicine Bradycardia, Adult Bradycardia is a lpkavh-bttj-yxlzmu heartbeat. A normal resting heart rate for an adult ranges from 60 to 100 beats per minute. With bradycardia, the resting heart rate is less than 60 beats per minute. Bradycardia can prevent enough oxygen from reaching certain areas of your body when you are active. It can be serious if it keeps enough oxygen from reaching your brain and other parts of your body. Bradycardia is not a problem for everyone. For some healthy adults, a slow resting heart rate is normal. What are the causes? This condition may be caused by: ??? A problem with the heart, including: ? A problem with the heart's electrical system, such as a heart block. With a heart block, electrical signals between the chambers of the heart are partially or completely blocked, so they are not able to work as they should. ? A problem with the heart's natural pacemaker (sinus node). ? Heart disease. ? A heart attack. ? Heart damage. ? Lyme disease. ? A heart infection. ? A heart condition that is present at (congenital heart defect). ??? Certain medicines that treat heart conditions. ??? Certain conditions, such as hypothyroidism and obstructive sleep apnea. ??? Problems with the balance of chemicals and other substances, like potassium, in the blood. ??? Trauma. ??? Radiation therapy. What increases the risk? You are more likely to develop this condition if you: ??? Are age 65 or older. ??? Have high blood pressure (hypertension), high cholesterol (hyperlipidemia), or diabetes. ??? Drink heavily, use tobacco or nicotine products, or use drugs. What are the signs or symptoms? Symptoms of this condition include: ??? Light-headedness. ??? Feeling faint or fainting. ??? Fatigue and weakness. ??? Trouble with activity or exercise. ??? Shortness of breath. ??? Chest pain (angina). ??? Drowsiness. ??? Confusion. ??? Dizziness. How is this diagnosed? This condition may be diagnosed based on: ??? Your symptoms. ??? Your medical history. ??? A physical exam. During the exam, your health care provider will listen to your heartbeat and check your pulse. To confirm the diagnosis, your health care provider may order tests, such as: ??? Blood tests. ??? An electrocardiogram (ECG). This test records the heart's electrical activity. The test can show how fast your heart is beating and whether the heartbeat is steady. ??? A test in which you wear a portable device (event recorder or Holter monitor) to record your heart's electrical activity while you go about your day. ??? An exercise test. How is this treated? Treatment for this condition depends on the cause of the condition and how severe your symptoms are. Treatment may involve: ??? Treatment of the underlying condition. ??? Changing your medicines or how much medicine you take. ??? Having a small, battery-operated device called a pacemaker implanted under the skin. When bradycardia occurs, this device can be used to increase your heart rate and help your heart beat in a regular rhythm. Follow these instructions at home: Lifestyle ??? Manage any health conditions that contribute to bradycardia as told by your health care provider. ??? Follow a heart-healthy diet. A collections specialist (dietitian) can help educate you about healthy food options and changes. ??? Follow an exercise program that is approved by your health care provider. ??? Maintain a healthy weight. ??? Try to reduce or manage your stress, such as with yoga or meditation. If you need help reducing stress, ask your health care provider. ??? Do not use any products that contain nicotine or tobacco. These products include cigarettes, chewing tobacco, and vaping devices, such as e-cigarettes. If you need help quitting, ask your health care provider. ??? Do not use illegal drugs. Alcohol use If you drink alcohol: ??? Limit how much you have to: ? 0?1 drink a day for women who are not . ? 0?2 drinks a day for men. ??? Know how much alcohol is in a drink. In the [place] one drink equals one 12 oz bottle of beer (355 mL), one 5 oz glass of wine (148 mL), or one 1? oz glass of hard liquor (44 mL). General instructions ??? Take zrwe-zlc-vuoxeum and prescription medicines only as told by your health care provider. ??? Keep all follow-up visits. This is important. How is this prevented? In some cases, bradycardia may be prevented by: ??? Treating underlying medical problems. ??? Stopping behaviors or medicines that can trigger the condition. Contact a health care provider if: ??? You feel light-headed or dizzy. ??? You almost faint. ??? You feel weak or are easily fatigued during physical activity. ??? You experience confusion or have memory problems. Get help right away if: ??? You faint. ??? You have chest pains or an irregular heartbeat (palpitations). ??? (more content not included)... [facility] 06-30-2024 Hospital Discharge instructions Patient Education 06/30/2024 09:20:56 TELLO JAVED Pediatric autoimmune neuropsychiatric disorders associated with streptococcal infection (PANDAS) is a diagnosis that is considered when a child suddenly has new symptoms of a mental health condition or when a child has a sudden worsening of existing (baseline) mental health symptoms. Children with the disorder develop one or both of these conditions: Obsessive-compulsive disorder (OCD). Rapid and repetitive muscle contractions that cause body movements or noises (tics). PANDAS does not often start after a child reaches puberty. What are the causes? This condition may be caused by a reaction to a streptococcal (strep) infection. When your child has a strep infection, his or her body makes proteins called antibodies in response to strep bacteria. In children with PANDAS, these antibodies attack brain cells instead of the bacteria. This condition is rare and often misdiagnosed. It is a relatively newly identified disorder that experts are still learning about. In some cases, young children may have strep infections several times a year but never get PANDAS, while other children seem more likely to develop OCD or tics. What increases the risk? This condition is more likely to develop in children who: Are 3 12 years old. Have or have had a strep infection, such as strep throat or scarlet fever. Have OCD or tics. What are the signs or symptoms? Symptoms may start suddenly following a strep infection. They may come and go or fade over time. Symptoms of this condition may include: Unwanted and distressing thoughts, ideas, or urges that keeping entering the child's mind and result in anxiety (obsessive fears). Physical or mental acts that your child feels he or she has to do over and over again (compulsions). Twitches and tics. Mood swings. Loss of handwriting, math, or reading skills. Bed-wetting and fears at night. Other symptoms may include: Hyperactivity and the inability to pay attention or remember things. Sudden episodes of severe anxiety, fear, or discomfort that causes physical and emotional symptoms (panic attacks). Separation anxiety. Loss of appetite. Children who already have OCD or tics may have new or worsening symptoms. How is this diagnosed? This condition is diagnosed based on: Your child's symptoms. Your child's medical history. A physical exam. Tests, such as: ?Blood tests to check for a current or recent strep infection. There is not a specific blood test to diagnose PANDAS at this time. ?A throat culture to test for strep throat. Your child's health care provider will look for an association between a strep infection and OCD or tics that has occurred suddenly. Your child's health care provider may diagnose PANDAS if your child is 3 12 years old and has: Sudden OCD or tic symptoms. Sudden worsening of OCD or tics. OCD symptoms that come and go suddenly. An associated strep infection. Hyperactivity or uncontrolled movements. How is this treated? This condition may be treated with: Medicines, such as: ?Antibiotics to treat an active strep infection. ?Steroids. ?Antidepressant medicines called SSRIs. ?NSAIDs, such as ibuprofen. Talk therapy (psychotherapy) for OCD behaviors. For very severe symptoms, treatment may include: ?Immunoglobulins given through an IV. Immunoglobulins are donor antibodies. ?Plasma exchange. Plasma exchange is a type of blood transfusion treatment. Follow these instructions at home: Medicines Give wdzy-ile-mnsvjge and prescription medicines only as told by your child's health care provider. If your child was prescribed an antibiotic medicine, make sure your child takes the antibiotic as told by the health care provider. Do not stop giving your child the antibiotic even if he or she starts to feel better. General instructions If your child was diagnosed with a strep infection, change his or her toothbrush to help prevent reinfection. Work with your child's health care providers and therapists to find the best treatment for your child. Have your child return to his or her normal activities as told by his or her health care provider. Ask your child's health care provider what activities are safe for your child. Keep all follow-up visits. This is important. Where to find more information PANDAS Network: pandasnetwork.org National Dewitt of Mental Health: nim.nih.gov Contact a health care provider if: Your child has a fever. Your child has a sore throat. Your child has swollen glands. Your child's symptoms suddenly get worse. Your child's symptoms do not improve with medicine. Get help right away if: Your child has severe side effects after taking medicines. Your child has thoughts of hurting himself or herself, or others. Get help right away if you feel like your child may hurt himself or herself or others, or if he or she has thoughts about taking his or her own life. Go to your nearest emergency room or: Call 911. Call the National Suicide Prevention Lifeline at or 128. This is open 24 hours a day. Text the Crisis Text Line at 370181. Summary Pediatric autoimmune neuropsychiatric disorders associated with streptococcalinfection is referred to as PANDAS. PANDAS is a diagnosis that is considered when a child suddenly has new symptoms of a mental health condition or when a child has a sudden worsening of existing (baseline) mental health symptoms. This condition is a rare and relatively newly identified disorder that experts are still learning about. If your child was prescribed an antibiotic medicine, make sure your child takes the antibiotic as told by the health care provider. Do not stop giving your child the antibiotic even if he or she starts to feel better. Contact your child's health care provider if his or her symptoms suddenly get worse or do not improve with medicine. This information is not intended to replace advice given to you by your health care provider. Make sure you discuss any questions you have with your health care provider. Document Revised: 01/09/2022 Document Reviewed: 01/09/2022 [facility] Patient Education 2023 [email or web address]. 06/30/2024 09:20:50 Common Variable Immunodeficiency Common Variable Immunodeficiency Common variable immunodeficiency (CVID) is a rare disorder in which the body does not have enough infection-fighting proteins called antibodies and immunoglobulins. This condition may increase your risk for: Frequent and unusual infections. Serious complications, including some types of cancer. Certain diseases in which the body's defense system (immune system) attacks normal body tissues (autoimmune disease). What are the causes? The cause of this condition is not known. It is likely caused by both environmental and genetic factors. What increases the risk? This condition is more likely to develop in: People who are 15 25 years old. People who have an autoimmune disease. People who have a family history of CVID. What are the signs or symptoms? Signs and symptoms can include frequent and long-term (chronic) infections of the upper respiratory system, lungs, and digestive system. These infections may not respond well to antibiotic medicines. Symptoms can vary from person to person, and they may include: Chronic cough. Coughing up blood. Difficulty breathing. Sore and inflamed sinuses (sinusitis). Ear infections. Weakness, fatigue, and easy bruising or bleeding. These symptoms may mean that CVID is causing you to have low amounts of red and white blood cells and clotting cells (platelets). Other symptoms may include: Bloating or pain in the abdomen. Nausea or vomiting. Diarrhea. Weight loss. CVID may cause other health problems, including arthritis, the inability to absorb nutrients from your diet (malabsorption), skin changes, or some types of cancer. Symptoms of these conditions may include: Joint pain and swelling. Weight loss. Swollen glands (lymphadenopathy). Enlarged liver or spleen. Lumps under the skin (granulomas). Patchy changes in skin color. Patches of hair loss (alopecia). How is this diagnosed? This condition may be diagnosed based on: Your symptoms, such as whether you often have unusual infections. Your medical history, including any family history of CVID. A physical exam. This may include checking for skin changes, alopecia, lymphadenopathy, and enlargement of your spleen or liver. Blood tests. A test in which you are given a vaccine to see if your body's immune system responds to it. If you have CVID, your body may not respond to the vaccine. You may also have other tests, including: Imaging tests of your lungs or sinuses. Spirometry testing. This measures: ?How much air you breathe in (inhale) and breathe out (exhale) during a breath. ?How long each breath takes. A procedure to remove a piece of an enlarged lymph node to be examined under a microscope (lymph node biopsy). Lymph nodes are collections of tissue that filter bacteria, viruses, and waste from the bloodstream. They are part of the immune system. How is this treated? This condition is treated with immunoglobulin therapy. This involves giving you donated antibodies (antibody transfusions). Transfusions are given through an IV inserted in a vein (intravenous infusion) or an injection given under the skin (subcutaneous injection). Treatment may also include: Antibiotic medicines to treat specific infections. Antihistamines, NSAIDs, or steroids to block side effects of transfusions. If you develop health problems such as autoimmune disease, arthritis, skin diseases, or cancer, you may need more treatment. Follow these instructions at home: Medicines Take iyaj-kmf-acnefuw and prescription medicines only as told by your health care provider. If you were prescribed an antibiotic, take it as told by your health care provider. Do not stop using the antibiotic even if your condition improves. General instructions Learn as much as you can about CVID, and work closely with your health care providers to manage your condition. If you have digestive symptoms, ask your health care provider if you should follow a certain diet. Do not drink water from a source that may not be clean. Do not use any products that contain nicotine or tobacco. These products include cigarettes, chewing tobacco, and vaping devices, such as e-cigarettes. If you need help quitting, ask your health care provider. Keep all follow-up visits. This is important. You may need to have your blood tested often to monitor your disease. Where to find more information National Dew[employer] of Allergy and Infectious Disease: www.niaid.nih.gov Contact a health care provider if: You have a fever. You have any symptoms of infection such as chills, worsening cough, or severe earache. You make high-pitched whistling sounds when you breathe, most often when you breathe out (wheeze). You have a reaction to your immunoglobulin therapy. You bruise or bleed easily. You have nausea or diarrhea. Get help right away if: You have bleeding that does not stop. Summary Common variable immunodeficiency (CVID) is a disorder in which the body does not have enough infection-fighting proteins called antibodies and immunoglobulins. CVID may increase your risk for frequent or unusual infections. Take smap-wxv-fiagmzl and prescription medicines only as told by your health care provider. If you develop symptoms of infection, tell your health care provider. Keep all follow-up visits. This is important. You may need to have your blood tested often to monitor your disease. This information is not intended to replace advice given to you by your health care provider. Make sure you discuss any questions you have with your health care provider. Document Revised: 11/18/2021 Document Reviewed: 11/18/2021 [facility] Patient Education 2023 [email or web address]. 06/30/2024 09:18:06 DASH Eating Plan DASH Eating Plan DASH stands for Dietary Approaches to Stop Hypertension. The DASH eating plan is a healthy eating plan that has been shown to: Lower high blood pressure (hypertension). Reduce your risk for type 2 diabetes, heart disease, and stroke. Help with weight loss. What are tips for following this plan? Reading food labels Check food labels for the amount of salt (sodium) per serving. Choose foods with less than 5 percent of the Daily Value (DV) of sodium. In general, foods with less than 300 milligrams (mg) of sodium per serving fit into this eating plan. To find whole grains, look for the word whole as the first word in the ingredient list. Shopping Buy products labeled as low-sodium or no salt added. Buy fresh foods. Avoid canned foods and pre-made or frozen meals. Cooking Try not to add salt when you cook. Use salt-free seasonings or herbs instead of table salt or sea salt. Check with your health care provider or pharmacist before using salt substitutes. Do not clarke foods. Cook foods in healthy ways, such as baking, boiling, grilling, roasting, or broiling. Cook using oils that are good for your heart. These include olive, canola, avocado, soybean, and sunflower oil. Meal planning Eat a balanced diet. This should include: ?4 or more servings of fruits and 4 or more servings of vegetables each day. Try to fill half of your plate with fruits and vegetables. ?6 8 servings of whole grains each day. ?6 or less servings of lean meat, poultry, or fish each day. 1 oz is 1 serving. A 3 oz (85 g) serving of meat is about the same size as the palm of your hand. One egg is 1 oz (28 g). ?2 3 servings of low-fat dairy each day. One serving is 1 cup (237 mL). ?1 serving of nuts, seeds, or beans 5 times each week. ?2 3 servings of heart-healthy fats. Healthy fats called omega-3 fatty acids are found in foods such as walnuts, flaxseeds, fortified milks, and eggs. These fats are also found in cold-water fish, such as sardines, salmon, and mackerel. Limit how much you eat of: ?Canned or prepackaged foods. ?Food that is high in trans fat, such as fried foods. ?Food that is high in saturated fat, such as fatty meat. ?Desserts and other sweets, sugary drinks, and other foods with added sugar. ?Full-fat dairy products. Do not salt foods before eating. Do not eat more than 4 egg yolks a week. Try to eat at least 2 vegetarian meals a week. Eat more home-cooked food and less restaurant, buffet, and fast food. Lifestyle When eating at a restaurant, ask if your food can be made with less salt or no salt. If you drink alcohol: ?Limit how much you have to: ?0 1 drink a day if you are female. ?0 2 drinks a day if you are male. ?Know how much alcohol is in your drink. In the [place] one drink is one 12 oz bottle of beer (355 mL), one 5 oz glass of wine (148 mL), or one 1 oz glass of hard liquor (44 mL). General information Avoid eating more than 2,300 mg of salt a day. If you have hypertension, you may need to reduce your sodium intake to 1,500 mg a day. Work with your provider to stay at a healthy body weight or lose weight. Ask what the best weight range is for you. On most days of the week, get at least 30 minutes of exercise that causes your heart to beat faster. This may include walking, swimming, or biking. Work with your provider or dietitian to adjust your eating plan to meet your specific calorie needs. What foods should I eat? Fruits All fresh, dried, or frozen fruit. Canned fruits that are in their natural juice and do not have sugar added to them. Vegetables Fresh or frozen vegetables that are raw, steamed, roasted, or grilled. Low-sodium or reduced-sodium tomato and vegetable juice. Low-sodium or reduced-sodium tomato sauce and tomato paste. Low-sodium or reduced-sodium canned vegetables. Grains Whole-grain or whole-wheat bread. Whole-grain or whole-wheat pasta. Brown rice. Oatmeal. Quinoa. Bulgur. Whole-grain and low-sodium cereals. Michelle bread. Low-fat, low-sodium crackers. Whole-wheat flour tortillas. Meats and other proteins Skinless chicken or turkey. Ground chicken or turkey. Pork with fat trimmed off. Fish and seafood. Egg whites. Dried beans, peas, or lentils. Unsalted nuts, nut butters, and seeds. Unsalted canned beans. Lean cuts of beef with fat trimmed off. Low-sodium, lean precooked or cured meat, such as sausages or meat loaves. Dairy Low-fat (1%) or fat-free (skim) milk. Reduced-fat, low-fat, or fat-free cheeses. Nonfat, low-sodium ricotta or cottage cheese. Low-fat or nonfat yogurt. Low-fat, low-sodium cheese. Fats and oils Soft margarine without trans fats. Vegetable oil. Reduced-fat, low-fat, or light mayonnaise and salad dressings (reduced-sodium). Canola, safflower, olive, avocado, soybean, and sunflower oils. Avocado. Seasonings and condiments Herbs. Spices. Seasoning mixes without salt. Other foods Unsalted popcorn and pretzels. Fat-free sweets. The items listed above may not be all the foods and drinks you can have. Talk to a dietitian to learn more. What foods should I avoid? Fruits Canned fruit in a light or heavy syrup. Fried fruit. Fruit in cream or butter sauce. Vegetables Creamed or fried vegetables. Vegetables in a cheese sauce. Regular canned vegetables that are not marked as low-sodium or reduced-sodium. Regular canned tomato sauce and paste that are not marked as low-sodium or reduced-sodium. Regular tomato and vegetable juices that are not marked as low-sodium or reduced-sodium. Pickles. Olives. Grains Baked goods made with fat, such as croissants, muffins, or some breads. Dry pasta or rice meal packs. Meats and other proteins Fatty cuts of meat. Ribs. Fried meat. Saavedra. Bologna, salami, and other precooked or cured meats, such as sausages or meat loaves, that are not lean and low in sodium. Fat from the back of a pig (fatback). Bratwurst. Salted nuts and seeds. Canned beans with added salt. Canned or smoked fish. Whole eggs or egg yolks. Chicken or turkey with skin. Dairy Whole or 2% milk, cream, and esum-fzf-[id number]. Whole or full-fat cream cheese. Whole-fat or sweetened yogurt. Full-fat cheese. Nondairy creamers. Whipped toppings. Processed cheese and cheese spreads. Fats and oils Butter. Stick margarine. Lard. Shortening. Ghee. Saavedra fat. Tropical oils, such as coconut, palm kernel, or palm oil. Seasonings and condiments Onion salt, garlic salt, seasoned salt, table salt, and sea salt. [facility] sauce. Tartar sauce. Barbecue sauce. Teriyaki sauce. Soy sauce, including reduced-sodium soy sauce. Steak sauce. Canned and packaged gravies. Fish sauce. Oyster sauce. Cocktail sauce. Store-bought horseradish. Ketchup. Mustard. Meat flavorings and tenderizers. Bouillon cubes. Hot sauces. Pre-made or packaged marinades. Pre-made or packaged taco seasonings. Relishes. Regular salad dressings. Other foods Salted popcorn and pretzels. The items listed above may not be all the foods and drinks you should avoid. Talk to a dietitian to learn more. Where to find more information National Heart, Lung, and Blood Dewitt (NHLBI): nhlbi.nih.gov [place] [employer] (AHA): heart.org Academy of Nutrition and Dietetics: eatright.org National Kidney Foundation (NKF): kidney.org This information is not intended to replace advice given to you by your health care provider. Make sure you discuss any questions you have with your health care provider. Document Revised: 05/03/2023 Document Reviewed: 05/03/2023 [facility] Patient Education 2023 [employer]. Follow Up Care 06/25/2024 13:53:59 With:PRAVEEN RESENDEZ FAAFP, CHRIS Perez, PED Address: [place] [address]- When:Within 2 Month(s) [facility] 06-30-2024 Note Patient Education Immunology Common Variable Immunodeficiency Common variable immunodeficiency (CVID) is a rare disorder in which the body does not have enough infection-fighting proteins called antibodies and immunoglobulins. This condition may increase your risk for: ??? Frequent and unusual infections. ??? Serious complications, including some types of cancer. ??? Certain diseases in which the body's defense system (immune system) attacks normal body tissues (autoimmune disease). What are the causes? The cause of this condition is not known. It is likely caused by both environmental and genetic factors. What increases the risk? This condition is more likely to develop in: ??? People who are 15?25 years old. ??? People who have an autoimmune disease. ??? People who have a family history of CVID. What are the signs or symptoms? Signs and symptoms can include frequent and long-term (chronic) infections of the upper respiratory system, lungs, and digestive system. These infections may not respond well to antibiotic medicines. Symptoms can vary from person to person, and they may include: ??? Chronic cough. ??? Coughing up blood. ??? Difficulty breathing. ??? Sore and inflamed sinuses (sinusitis). ??? Ear infections. ??? Weakness, fatigue, and easy bruising or bleeding. These symptoms may mean that CVID is causing you to have low amounts of red and white blood cells and clotting cells (platelets). Other symptoms may include: ??? Bloating or pain in the abdomen. ??? Nausea or vomiting. ??? Diarrhea. ??? Weight loss. CVID may cause other health problems, including arthritis, the inability to absorb nutrients from your diet (malabsorption), skin changes, or some types of cancer. Symptoms of these conditions may include: ??? Joint pain and swelling. ??? Weight loss. ??? Swollen glands (lymphadenopathy). ??? Enlarged liver or spleen. ??? Lumps under the skin (granulomas). ??? Patchy changes in skin color. ??? Patches of hair loss (alopecia). How is this diagnosed? This condition may be diagnosed based on: ??? Your symptoms, such as whether you often have unusual infections. ??? Your medical history, including any family history of CVID. ??? A physical exam. This may include checking for skin changes, alopecia, lymphadenopathy, and enlargement of your spleen or liver. ??? Blood tests. ??? A test in which you are given a vaccine to see if your body's immune system responds to it. If you have CVID, your body may not respond to the vaccine. You may also have other tests, including: ??? Imaging tests of your lungs or sinuses. ??? Spirometry testing. This measures: ? How much air you breathe in (inhale) and breathe out (exhale) during a breath. ? How long each breath takes. ??? A procedure to remove a piece of an enlarged lymph node to be examined under a microscope (lymph node biopsy). Lymph nodes are collections of tissue that filter bacteria, viruses, and waste from the bloodstream. They are part of the immune system. How is this treated? This condition is treated with immunoglobulin therapy. This involves giving you donated antibodies (antibody transfusions). Transfusions are given through an IV inserted in a vein (intravenous infusion) or an injection given under the skin (subcutaneous injection). Treatment may also include: ??? Antibiotic medicines to treat specific infections. ??? Antihistamines, NSAIDs, or steroids to block side effects of transfusions. If you develop health problems such as autoimmune disease, arthritis, skin diseases, or cancer, you may need more treatment. Follow these instructions at home: Medicines ??? Take wtfa-qgs-gdbzcvr and prescription medicines only as told by your health care provider. ??? If you were prescribed an antibiotic, take it as told by your health care provider. Do not stop using the antibiotic even if your condition improves. General instructions ??? Learn as much as you can about CVID, and work closely with your health care providers to manage your condition. ??? If you have digestive symptoms, ask your health care provider if you should follow a certain diet. ??? Do not drink water from a source that may not be clean. ??? Do not use any products that contain nicotine or tobacco. These products include cigarettes, chewing tobacco, and vaping devices, such as e-cigarettes. If you need help quitting, ask your health care provider. ??? Keep all follow-up visits. This is important. You may need to have your blood tested often to monitor your disease. Where to find more information ??? National Dewitt of Allergy and Infectious Disease: www.niaid.nih.gov Contact a health care provider if: ??? You have a fever. ??? You have any symptoms of infection such as chills, worsening cough, or severe earache. ??? You make high-pitched whistling sounds when you breathe, most often when you breathe out (wheeze). (more content not included)... [facility] 06-23-2024 History of Present illness Narrative Reason for Appointment: Patient ID: Madhu Rendon is a 38 y.o. female who presents for Vaginal Bleeding and Dizziness Patient presents today for Consult appointment. 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 Coagulation defect, unspecified ([facility]) 02/05/2019 Cold intolerance 11/15/2023 [...] Less than 8 weeks gestation of 06/05/2019 group home (current) use of 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/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 02/05/2019 Migraine without aura and without status migrainosus, not intractable ([facility]) 09/12/2017 Morbid obesity ([facility]) 11/15/2023 Muscle fasciculation 08/19/2021 [...] 01/16/2020 Pre-diabetes 11/15/2023 Primary hypercoagulable state ([facility]) 08/01/2022 Pruritus, unspecified 01/02/2020 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[facility]) 06/12/2023 Raised antibody titer 09/25/2017 Right lower quadrant pain 11/15/2023 Right otitis externa 11/15/2023 Salivary gland swelling 11/15/2023 Single live 01/15/2020 Snoring 11/15/2023 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) 12/30/2019 Suspected severe acute respiratory syndrome coronavirus 2 (SARS-CoV-2) infection 06/12/2023 SVT (supraventricular tachycardia) ([facility]) 08/26/2019 Syncope and collapse 06/03/2018 Other bacterial infections of unspecified site 06/27/2019 Thrombocytopenia, unspecified ([facility]) 11/20/2019 Hypoglycemia 06/12/2023 Unspecified condition associated with female genital organs and menstrual cycle 05/09/2019 Unspecified ovarian cyst, right side 02/06/2019 Urinary tract infection 10/16/2019 Referred otalgia of right ear 11/19/2023 LPRD (laryngopharyngeal reflux disease) 11/19/2023 Resolved Ambulatory Problems Diagnosis Date Noted No Resolved Ambulatory Problems Past Medical History: Diagnosis Date AMA (advanced maternal age) multigravida 35+ Anemia Antiphospholipid syndrome ([facility]) Gestational diabetes Heartburn Hypothyroid ([facility]) Stroke ([facility]) HISTORY PAST MEDICAL HISTORY SOCIAL HISTORY Past Medical History: Diagnosis Date AMA (advanced maternal age) multigravida 35+ Anemia Antiphospholipid syndrome (CMS/HCC) Gestational diabetes Heartburn Hypothyroid (CMS/HCC) Stroke (CMS/HCC) Social History Tobacco Use Smoking status: Never [...] drainage of cyst WISDOM TOOTH EXTRACTION 2007 [place] teeth REVIEW OF SYSTEMS Review of Systems: Review of Systems Genitourinary: Positive for vaginal bleeding and vaginal discharge. All other systems reviewed and are negative. OBJECTIVE Objective: Physical Exam Constitutional: Appearance: Normal [...] nursing note reviewed. Exam conducted with a post adoption coordinator present. Vitals: Estimated body mass index is 34.93 kg/m as calculated from the following: Height as of 11/19/23: 5' 6 . Weight as of this encounter: 216 lb 6.4 oz. BP: 112/74 Patient's last menstrual period was 06/17/2024. ASSESSMENT & PLAN ICD-10-CM 1. Vaginal bleeding N93.9 POCT urinalysis dipstick manually resulted 2. Dizziness R42 POCT urinalysis dipstick manually resulted 3. Abnormal TSH R79.89 levothyroxine (Synthroid) 25 MCG tablet Patient and spouse present to office for consult and follow up miscarriage/vaginal bleeding/abnormal TSH. Discussed synthroid and underlying issues. Patient voiced that she took a z-pack and since now has vaginal discharge. Patient voiced that she was given z-pack for facial numbness on right side & thinking it could have been a sinus infection. Patient voiced she did have fluid in her ear. Patient stated that after she took fluconazole symptoms seemed to resolve. Discussed Flonase and Sudafed for symptoms. Reviewed pathology report and patient given copy of results. Patient voiced that she is having pressure and burning rectally and vaginally. Discussed with patient healing process and hormones and that this maybe tender due to healing process. Patient and spouse did have intercourse yesterday. Patients LMP 06/10/24 that lasted 3 days and a week later she started spotting again. Reassurance given that this is still healing from recent loss. Discussed Terconazole & for vaginal symptoms as patient is trying to conceive as well. Medication sent to patients pharmacy and vaginal cultures obtained without difficulty to confirm what is causing vaginal discharge. 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 These joints are located near your ears and allow your jaw to open and close. For people with TMJ syndrome, chewing, biting, or other movements of the jaw can be difficult or painful. TMJ syndrome is often mild and goes away within a few weeks. However, sometimes the condition becomes a long-term (chronic) problem. What are the causes? This condition may be caused by: Grinding your teeth or clenching your jaw. Some people do this when they are stressed. Arthritis. An injury to the jaw. A head or neck injury. Teeth or dentures that are not aligned well. In some cases, the cause of TMJ syndrome may not be known. What are the signs or symptoms? The most common symptom of this condition is aching pain on the side of the head in the area of the TMJ. Other symptoms may include: Pain when moving your jaw, such as when chewing or biting. Not being able to open your jaw all the way. Making a clicking sound when you open your mouth. Headache. Earache. Neck or shoulder pain. How is this diagnosed? This condition may be diagnosed based on: Your symptoms and medical history. A physical exam. Your health care provider may check the range of motion of your jaw. Imaging tests, such as X-rays or an MRI. You may also need to see your dentist, who will check if your teeth and jaw are lined up correctly. How is this treated? TMJ syndrome often goes away on its own. If treatment is needed, it may include: Eating soft foods and applying ice or heat. Medicines to relieve pain or inflammation. Medicines or massage to relax the muscles. A splint, bite plate, or mouthpiece to prevent teeth grinding or jaw clenching. Relaxation techniques or counseling to help reduce stress. A therapy for pain in which an electrical current is applied to the nerves through the skin (transcutaneous electrical nerve stimulation). Acupuncture. This may help to relieve pain. Jaw surgery. This is rarely needed. Follow these instructions at home: Eating and drinking Eat a soft diet if you are having trouble chewing. Avoid foods that require a lot of chewing. Do not chew gum. General instructions Take ullw-pks-iyikxtm and prescription medicines only as told by your health care provider. If directed, put ice on the painful area. To do this: ?Put ice in a plastic bag. ?Place a towel between your skin and the bag. ?Leave the ice on for 20 minutes, 2 3 times a day. ?Remove the ice if your skin turns bright red. This is very important. If you cannot feel pain, heat, or cold, you have a greater risk of damage to the area. Apply a warm, wet cloth (warm compress) to the painful area as told. Massage your jaw area and do any jaw stretching exercises as told by your health care provider. If you were given a splint, bite plate, or mouthpiece, wear it as told by your health care provider. Keep all follow-up visits. This is important. Where to find more information National Dewitt of Dental and Craniofacial Research: www.nidcr.nih.gov Contact a health care provider if: You have trouble eating. You have new or worsening symptoms. Get help right away if: Your jaw locks. Summary Temporomandibular joint syndrome (TMJ syndrome) is a condition that causes pain in the temporomandibular joints. These joints are located near your ears and allow your jaw to open and close. TMJ syndrome is often mild and goes away within a few weeks. However, sometimes the condition becomes a long-term (chronic) problem. Symptoms include an aching pain on the side of the head in the area of the TMJ, pain when chewing or biting, and being unable to open your jaw all the way. You may also make a clicking sound when you open your mouth. TMJ syndrome often goes away on its own. If treatment is needed, it may include medicines to relieve pain, reduce inflammation, or relax the muscles. A splint, bite plate, or mouthpiece may also be used to prevent teeth grinding or jaw clenching. This information is not intended to replace advice given to you by your health care provider. Make sure you discuss any questions you have with your health care provider. Document Revised: 11/27/2021 Document Reviewed: 11/27/2021 [facility] Patient Education 2023 [employer]. Follow Up Care 06/06/2024 11:26:13 With:PRAVEEN RESENDEZ FAAFP, CHRIS Perez, PED Address: [address] [place] [address] [place] [address] When:Within 6 Month(s) [facility] 06-09-2024 Note Patient Education Orthopedics Temporomandibular Joint Syndrome Temporomandibular joint syndrome (TMJ syndrome) is a condition that causes pain in the temporomandibular joints. These joints are located near your ears and allow your jaw to open and close. For people with TMJ syndrome, chewing, biting, or other movements of the jaw can be difficult or painful. TMJ syndrome is often mild and goes away within a few weeks. However, sometimes the condition becomes a long-term (chronic) problem. What are the causes? This condition may be caused by: ??? Grinding your teeth or clenching your jaw. Some people do this when they are stressed. ??? Arthritis. ??? An injury to the jaw. ??? A head or neck injury. ??? Teeth or dentures that are not aligned well. In some cases, the cause of TMJ syndrome may not be known. What are the signs or symptoms? The most common symptom of this condition is aching pain on the side of the head in the area of the TMJ. Other symptoms may include: ??? Pain when moving your jaw, such as when chewing or biting. ??? Not being able to open your jaw all the way. ??? Making a clicking sound when you open your mouth. ??? Headache. ??? Earache. ??? Neck or shoulder pain. How is this diagnosed? This condition may be diagnosed based on: ??? Your symptoms and medical history. ??? A physical exam. Your health care provider may check the range of motion of your jaw. ??? Imaging tests, such as X-rays or an MRI. You may also need to see your dentist, who will check if your teeth and jaw are lined up correctly. How is this treated? TMJ syndrome often goes away on its own. If treatment is needed, it may include: ??? Eating soft foods and applying ice or heat. ??? Medicines to relieve pain or inflammation. ??? Medicines or massage to relax the muscles. ??? A splint, bite plate, or mouthpiece to prevent teeth grinding or jaw clenching. ??? Relaxation techniques or counseling to help reduce stress. ??? A therapy for pain in which an electrical current is applied to the nerves through the skin (transcutaneous electrical nerve stimulation). ??? Acupuncture. This may help to relieve pain. ??? Jaw surgery. This is rarely needed. Follow these instructions at home: Eating and drinking ??? Eat a soft diet if you are having trouble chewing. ??? Avoid foods that require a lot of chewing. Do not chew gum. General instructions ??? Take ybuf-gag-kcvzhir and prescription medicines only as told by your health care provider. ??? If directed, put ice on the painful area. To do this: ? Put ice in a plastic bag. ? Place a towel between your skin and the bag. ? Leave the ice on for 20 minutes, 2?3 times a day. ? Remove the ice if your skin turns bright red. This is very important. If you cannot feel pain, heat, or cold, you have a greater risk of damage to the area. ??? Apply a warm, wet cloth (warm compress) to the painful area as told. ??? Massage your jaw area and do any jaw stretching exercises as told by your health care provider. ??? If you were given a splint, bite plate, or mouthpiece, wear it as told by your health care provider. ??? Keep all follow-up visits. This is important. Where to find more information ??? National Dew[employer] of Dental and Craniofacial Research: www.nidcr.nih.gov Contact a health care provider if: ??? You have trouble eating. ??? You have new or worsening symptoms. Get help right away if: ??? Your jaw locks. Summary ??? Temporomandibular joint syndrome (TMJ syndrome) is a condition that causes pain in the temporomandibular joints. These joints are located near your ears and allow your jaw to open and close. ??? TMJ syndrome is often mild and goes away within a few weeks. However, sometimes the condition becomes a long-term (chronic) problem. ??? Symptoms include an aching pain on the side of the head in the area of the TMJ, pain when chewing or biting, and being unable to open your jaw all the way. You may also make a clicking sound when you open your mouth. ??? TMJ syndrome often goes away on its own. If treatment is needed, it may include medicines to relieve pain, reduce inflammation, or relax the muscles. A splint, bite plate, or mouthpiece may also be used to prevent teeth grinding or jaw clenching. This information is not intended to replace advice given to you by your health care provider. Make sure you discuss any questions you have with your health care provider. Document Revised: 11/27/2021 Document Reviewed: 11/27/2021 [employer] Patient Education ? 2023 [employer] [facility] 06-02-2024 History of Present illness Narrative Reason for Appointment: Patient ID: Madhu Rendon is a 38 y.o. female who presents for follow up miscarriage Patient presents today for follow up miscarriage. 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 02/05/2019 Migraine without aura and without status migrainosus, not intractable ([facility]) 09/12/2017 Morbid obesity ([facility]) 11/15/2023 Muscle fasciculation 08/19/2021 [...] 01/16/2020 Pre-diabetes 11/15/2023 Primary hypercoagulable state ([facility]) 08/01/2022 Pruritus, unspecified 01/02/2020 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[facility]) 06/12/2023 Raised antibody titer 09/25/2017 Right lower quadrant pain 11/15/2023 Right otitis externa 11/15/2023 Salivary gland swelling 11/15/2023 Single live 01/15/2020 Snoring 11/15/2023 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) 12/30/2019 Suspected severe acute respiratory syndrome coronavirus 2 (SARS-CoV-2) infection 06/12/2023 SVT (supraventricular tachycardia) ([facility]) 08/26/2019 Syncope and collapse 06/03/2018 Other bacterial infections of unspecified site 06/27/2019 Thrombocytopenia, unspecified (CMS/HCC) 11/20/2019 Hypoglycemia 06/12/2023 Unspecified condition associated with [...] Antiphospholipid syndrome (CMS/HCC) Gestational diabetes Heartburn Hypothyroid (CMS/HCC) Stroke (CMS/HCC) HISTORY PAST MEDICAL HISTORY SOCIAL HISTORY Past Medical History: Diagnosis Date AMA (advanced maternal age) multigravida 35+ Anemia Antiphospholipid syndrome (CMS/HCC) Gestational diabetes Heartburn Hypothyroid (CMS/HCC) Stroke (CMS/HCC) Social History Tobacco Use Smoking status: Never [...] drainage of cyst WISDOM TOOTH EXTRACTION 2007 [place] teeth REVIEW OF SYSTEMS Review of Systems: Review of Systems All other systems reviewed and are negative. OBJECTIVE Objective: Physical Exam Constitutional: Appearance: Normal [...] nursing note reviewed. Exam conducted with a post adoption coordinator present. Vitals: Estimated body mass index is 34.51 kg/m as calculated from the following: Height as of 11/19/23: 5' 6 . Weight as of this encounter: 213 lb 12.8 oz. BP: 120/60 Patient's last menstrual period was 01/29/2024. ASSESSMENT & PLAN ICD-10-CM 1. Follow-up visit after miscarriage Z51.89 O03.9 Patient presents today for a follow up to miscarriage. Patient had recent HCG level drawn at [facility] 05/31/2024 lab value was 6. Documented by Renate Vegas LPN on behalf of: Wilton Herrmann DO documented in this encounter [facility] 05-28-2024 Telephone encounter Note Triage to call with iron results [facility] 05-28-2024 Miscellaneous Notes Triage to call with iron results documented in this encounter [facility] 05-28-2024 Instructions Nathaly Florence - 05/28/2024 1:44 PM EST Triage to call iron results Continue Lovenox - patient prefers 40 mg (rather than rec 80mg) Encouraged her to reconsider Take B12 supplement in the form of a sublingual tablet RTC in 3 months Labs same day or 2-7 days prior documented in this encounter [facility] 05-28-2024 History of Present illness Narrative Images from the original note were not included. NAME: Madhu Rendon CLINIC NO.: [id number] DATE OF SERVICE: May 28, 2024 (Levon) Some elements in this clinic note that are critical to medical decision making have been carefully reviewed and included from a prior clinic note dated: January 02, 2024 (Lveon) Additional Clinicians involved in Madhu Rendon's care: Drs. Herrmann, Jorge Monge, Humaira Gaviria, Dr. Boothe CC: hypercoag state. ASSESSMENT: 38 year old woman presents with a prior history of CVA in 2016 and an antiphospholipid antibody that was identified much later in 2018. These were found in [place], [place]. I don't have access to these [...] a target-like rash shortly before presenting to [facility] in 2015 with headaches and was diagnosed with a CVA. - She saw Dr. Baugh but no relevant conclusion was made. She remains on Lovenox - still breast feeding. No clinical need to recheck her APL Ab or Cardiolipin Ab's as results will not change our treatment plan despite her recent miscarriage. Placental evaluation is still pending as of April 2024. PLAN: Triage to call iron results Continue Lovenox - patient prefers 40 mg (rather than rec 80mg) Encouraged her to reconsider Take B12 supplement in the form of a sublingual tablet RTC in 3 months Labs same day or 2-7 days prior HPI: Updated Visit, May 28, 2024: Madhu returns today for a follow up. She unfortunately had a miscarriage, at 14 weeks, earlier this month. She required surgical intervention to remove the placenta - held Lovenox for 2 days prior, has resumed now. She endorses fatigue, is improving now. Today's Hgb is slightly lower than her normal but is within normal range. Iron studies are pending. She had one instance of prolonged bleeding following a lab draw. I encouraged her to continue supplemental B12 at home. Updated Visit, January 02, 2024: Madhu returns [...] soon. When she had a stroke in [place], she had symptoms up to a month [...] and stayed on Lovenox Hgb 13.1 @ [facility] Recommended ER if persisting bleeding but she [...] and at age 69. Both lived in [facility] but she was adopted. She was not able to see ID in October and will be seeing Dr. Baugh next week. Also will have her see Dr. Hamlin for her clotting disorder and make any other recommendations to optimize her treatment. Updated Visit, October 08, 2020: Telephone only Received call from pt stating she was seen in [facility] ER for numbness in her chest, throat, and extremities, and sob which has been worsening over the last week. We arranged a telephone visit for her to review questions with me. Madhu Rendon is a 34 year old female seen for Hypercoagulable state and recent concerns and symptoms that required her to be seen at [facility] ER. She went to the ER with Gradual worsening of breathing after progressive tingling of fingers and legs. She currently remains very fatigued even though she is sleeping well. Now recalls that before her stroke she remembers having a bull's eye rash and was seen with severe headaches in [place], [place] - was found to have a [...] a root canal and was sent to [facility] for MRI which was negative but non-contrasted. [...] history goes back to January 2016 in [facility] where she had persisting headaches and slurred speech followed by lower extremity weakness. This took a few months to resolve and she is back to her normal state of being but some point in time during her her next she was seen by Dr. Humera Hyde in [place] as well and was found to have [...] PERFORMANCE STATUS: 0 PHYSICAL EXAMINATION: Vitals: BP 123/83 Pulse 72 Temp (Src) 97.6 (Temporal) Resp 16 Ht 5' 6.024 (1.68m) Wt 217 lb 2.5 oz (98.5kg) SpO2 99% LMP 12/22/2023 BMI 35.02 kg/(m^2). Body surface area is 2.14 meters squared. Exam limited to gross visualization [...] MEDICATIONS: enoxaparin (LOVENOX) 40 mg/0.4 mL INJECT 1 SYRINGE SUBCUTANEOUSLY EVERY 24 HOURS famotidine (PEPCID) 20 mg tablet Take 1 tablet by mouth once daily. To take prior to infusion metFORMIN ER (GLUCOPHAGE XR) 500 mg 24 hr tablet multivitamin tablet Take 1 tablet by mouth once daily. LABORATORY VALUES: WBC (k/uL) Date Value 05/28/2024 8.56 RBC (m/uL) Date Value 05/28/2024 3.73 (L) Hemoglobin (g/dL) Date Value 05/28/2024 11.5 Hematocrit (%) Date Value 05/28/2024 34.0 (L) MCV (fL) Date Value 05/28/2024 91.2 MCH (pg) Date Value 05/28/2024 30.8 MCHC (g/dL) Date Value 05/28/2024 33.8 RDW-CV (%) Date Value 05/28/2024 13.8 Platelet Count (k/uL) Date Value 05/28/2024 345 MPV (fL) Date Value 05/28/2024 9.6 Glucose (mg/dL) Date Value 05/28/2024 79 BUN (mg/dL) Date Value 05/28/2024 8 Creatinine (mg/dL) Date Value 05/28/2024 0.71 Sodium (mmol/L) Date Value 05/28/2024 134 (L) Potassium (mmol/L) Date Value 05/28/2024 4.0 Chloride (mmol/L) Date Value 05/28/2024 99 CO2 (mmol/L) Date Value 05/28/2024 25 Protein, Total (g/dL) Date Value 05/28/2024 7.1 Albumin (g/dL) Date Value 05/28/2024 4.4 Calcium, Total (mg/dL) Date Value 05/28/2024 9.7 Alkaline Phosphatase (U/L) Date Value 05/28/2024 59 Bilirubin, Total (mg/dL) Date Value 05/28/2024 0.2 AST (U/L) Date Value 05/28/2024 11 (L) ALT (U/L) Date Value 05/28/2024 12 DIAGNOSIS: (D68.59) Primary hypercoagulable state (HCC) (primary encounter diagnosis) (I69.328) CVA, old, speech/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 Salvador Calix MD, CPE [facility] Provided at: [place], [place] Scribe Attestation: This note was scribed by Nathaly Florence on May 28, 2024 under the direction and supervision of Dr. Salvador Calix. I attest that all of the information documented is correct to the best of my knowledge. Provider Attestation: I, Salvador Calix MD, attest that all information documented by the above scribe is correct, and was supervised by me and under my direction. CC: MD Wilton Day, [address] [place] [address] Humaira Gaviria MD [address] [place] [id number] MD Cosmo Kingston MD Michael Blank, MD documented in this encounter [facility] 05-28-2024 Note HNO ID: [id number] Author: SALVADOR CALIX MD Service: ? Author Type: Physician Type: Progress Notes Filed: 05/29/2024 09:13 Note Text: NAME: Madhu Rendon CLINIC NO.: [id number] DATE OF SERVICE: May 28, 2024 ([email or web address]) Some elements in this clinic note that are critical to medical decision making have been carefully reviewed and included from a prior clinic note dated: January 02, 2024 (Levon) Additional Clinicians involved in Madhu Rendon's care: Drs. Herrmann, Jorge Monge, Humaira Gaviria, Dr. Boothe CC: hypercoag state. ASSESSMENT: 38 year old woman presents with a prior history of CVA in 2016 and an antiphospholipid antibody that was identified much later in 2018. These were found in [place], [place]. I don't have access to these [...] a target-like rash shortly before presenting to [facility] in 2016 with headaches and was diagnosed with a CVA. - She saw Dr. Baugh but no relevant conclusion was made. She remains on Lovenox - still breast feeding. No clinical need to recheck her APL Ab or Cardiolipin Ab's as results will not change our treatment plan despite her recent miscarriage. Placental evaluation is still pending as of April 2024. PLAN: Triage to call iron results Continue Lovenox - patient prefers 40 mg (rather than rec 80mg) Encouraged her to reconsider Take B12 supplement in the form of a sublingual tablet RTC in 3 months Labs same day or 2-7 days prior ___ HPI: Updated Visit, May 28, 2024: Madhu returns today for a follow up. She unfortunately had a miscarriage, at 14 weeks, earlier this month. She required surgical intervention to remove the placenta - held Lovenox for 2 days prior, has resumed now. She endorses fatigue, is improving now. Today's Hgb is slightly lower than her normal but is within normal range. Iron studies are pending. She had one instance of prolonged bleeding following a lab draw. I encouraged her to continue supplemental B12 at home. Updated Visit, January 02, 2024: Madhu returns [...] soon. When she had a stroke in [place], she had symptoms up to a month [...] doing well. Still breast feeding. Updated Visit, (more content not included)... [facility] 05-14-2024 Telephone encounter Note Pt called to inform she had a miscarriage, Sunday (05/10/24) Asking if any additional blood work was needed from out standpoint. Pt aware we will be checking her CBC for any signs of anemia and her iron studies for deficiency. 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 She denies any further questions needs or concerns at this time. MARSHA Rushk: YANET [facility] 05-14-2024 Miscellaneous Notes Pt called to inform she had a miscarriage, Sunday (05/10/24) Asking if any additional blood work was needed from out standpoint. Pt aware we will be checking her CBC for any signs of anemia and her iron studies for deficiency. 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 She denies any further questions needs or concerns at this time. MARSHA Rushk: YANET documented in this encounter [facility] 05-14-2024 Telephone encounter Note 0908 Patient called to inquire if when she will need to have HCG levels drawn and if she needed a follow up appointment in office. Patient request call back. 0919 Called patient and informed patient to have labs drawn weekly until levels are below 5. Standing order was sent to Yuki per patient request. Patient was advised that once provider reviews results he may space out the times of lab draws. Advised patient to schedule 2-3 week in office follow up loss, so then any questions patient has can be answered and provider can discuss future conception and hat measures could be taken from a medical stand point (ie. Progesterone suppositories) PVU and would like to know if she would need to have blood thinners increased as she is already on a low dose? Informed patient that message would be sent to provider to have answer in regards to blood thinners at follow up appointment. PVU--Rosi Presley LPN [facility] 05-14-2024 Miscellaneous Notes 0908 Patient called to inquire if when she will need to have HCG levels drawn and if she needed a follow up appointment in office. Patient request call back. 0919 Called patient and informed patient to have labs drawn weekly until levels are below 5. Standing order was sent to Yuki per patient request. Patient was advised that once provider reviews results he may space out the times of lab draws. Advised patient to schedule 2-3 week in office follow up loss, so then any questions patient has can be answered and provider can discuss future conception and hat measures could be taken from a medical stand point (ie. Progesterone suppositories) PVU and would like to know if she would need to have blood thinners increased as she is already on a low dose? Informed patient that message would be sent to provider to have answer in regards to blood thinners at follow up appointment. PVU--Rosi Presley LPN documented in this encounter [facility] 05-06-2024 History of Present illness Narrative Reason for Appointment: Patient ID: [...] antibody positive 09/10/2017 Antiphospholipid antibody syndrome ([facility]) 07/07/2019 Anxiety 06/12/2023 Blood pressure elevated without history of HTN 11/15/2023 BMI 37.0-37.9, adult 11/15/2023 Cerebral infarction, unspecified ([facility]) 05/16/2019 Cerebrovascular accident (CVA) due to stenosis of middle cerebral artery ([facility]) 02/22/2020 Cervicalgia 02/05/2019 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 Coagulation defect, unspecified ([facility]) 02/05/2019 Cold intolerance 11/15/2023 [...] Less than 8 weeks gestation of 06/05/2019 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 02/05/2019 Migraine without aura and without status migrainosus, not intractable ([facility]) 09/12/2017 Morbid obesity ([facility]) 11/15/2023 Muscle fasciculation 08/19/2021 [...] 01/16/2020 Pre-diabetes 11/15/2023 Primary hypercoagulable state ([facility]) 08/01/2022 Pruritus, unspecified 01/02/2020 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[facility]) 06/12/2023 Raised antibody titer 09/25/2017 Right lower quadrant pain 11/15/2023 Right otitis externa 11/15/2023 Salivary gland swelling 11/15/2023 Single live 01/15/2020 Snoring 11/15/2023 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) 12/30/2019 Suspected severe acute respiratory syndrome coronavirus 2 (SARS-CoV-2) infection 06/12/2023 SVT (supraventricular tachycardia) ([facility]) 08/26/2019 Syncope and collapse 06/03/2018 Other bacterial infections of unspecified site 06/27/2019 Thrombocytopenia, unspecified ([facility]) 11/20/2019 Hypoglycemia 06/12/2023 Unspecified [...] Antiphospholipid syndrome (CMS/HCC) Gestational diabetes Heartburn Hypothyroid (CMS/HCC) Stroke (CMS/HCC) HISTORY PAST MEDICAL HISTORY SOCIAL HISTORY Past Medical History: Diagnosis Date AMA (advanced maternal age) multigravida 35+ Anemia Antiphospholipid syndrome (CMS/HCC) Gestational diabetes Heartburn Hypothyroid (CMS/HCC) Stroke ([facility]) Social History Tobacco Use [...] drainage of cyst WISDOM TOOTH EXTRACTION 2007 [place] teeth REVIEW OF SYSTEMS Review of Systems: [...] nursing note reviewed. Exam conducted with a post adoption coordinator present. Vitals: Estimated body mass index is [...] dipstick manually resulted documented in this encounter [facility] 04-04-2024 History of Present illness Narrative Reason for Appointment: Patient ID: [...] F Vag-Spont Comments: Maternal hemorrhage 3 SAB 11/30/13 2 Term 11/27/07 40w0d 8 lb 8 [...] antibody positive 09/10/2017 Antiphospholipid antibody syndrome ([facility]) 07/07/2019 Anxiety 06/12/2023 Blood pressure elevated without history of HTN 11/15/2023 BMI 37.0-37.9, adult 11/15/2023 Cerebral infarction, unspecified (CMS/HCC) 05/16/2019 Cerebrovascular accident (CVA) due to stenosis of middle cerebral artery ([facility]) 02/22/2020 Cervicalgia 02/05/2019 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 Coagulation defect, unspecified ([facility]) 02/05/2019 Cold intolerance 11/15/2023 [...] Less than 8 weeks gestation of 06/05/2019 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 02/05/2019 Migraine without aura and without status migrainosus, not intractable ([facility]) 09/12/2017 Morbid obesity ([facility]) 11/15/2023 Muscle fasciculation 08/19/2021 [...] 01/16/2020 Pre-diabetes 11/15/2023 Primary hypercoagulable state ([facility]) 08/01/2022 Pruritus, unspecified 01/02/2020 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[facility]) 06/12/2023 Raised antibody titer 09/25/2017 Right lower quadrant pain 11/15/2023 Right otitis externa 11/15/2023 Salivary gland swelling 11/15/2023 Single live 01/15/2020 Snoring 11/15/2023 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) 12/30/2019 Suspected severe acute respiratory syndrome coronavirus 2 (SARS-CoV-2) infection 06/12/2023 SVT (supraventricular tachycardia) ([facility]) 08/26/2019 Syncope and collapse 06/03/2018 Other bacterial infections of unspecified site 06/27/2019 Thrombocytopenia, unspecified ([facility]) 11/20/2019 Hypoglycemia 06/12/2023 Unspecified condition associated with female genital organs and menstrual cycle 05/09/2019 Unspecified ovarian cyst, right side 02/06/2019 Urinary tract infection 10/16/2019 Referred otalgia of right ear 11/19/2023 LPRD (laryngopharyngeal reflux disease) 11/19/2023 Resolved Ambulatory Problems Diagnosis Date Noted No Resolved Ambulatory Problems Past Medical History: Diagnosis Date AMA (advanced maternal age) multigravida 35+ Anemia Antiphospholipid syndrome ([facility]) Gestational diabetes Heartburn Hypothyroid ([facility]) Stroke ([facility]) Family History Problem Relation [...] drainage of cyst WISDOM TOOTH EXTRACTION 2007 [place] teeth Allergies Allergen Reactions Ciprofloxacin GI intolerance [...] or undercooked meat, and stay away from [facility]. Patient has also been advised to not [...] Ariane Joseph LPN documented in this encounter [facility] 02-28-2024 Telephone encounter Note Pt aware and agreeable to plan of care. Pt denies any further questions, needs or concerns at this time. Appt verified for lab/follow up Naga Johnson RN [facility] 02-28-2024 Miscellaneous Notes Pt aware and agreeable [...] Naga Johnson RN documented in this encounter [facility] 02-27-2024 Telephone encounter Note She can take the iron with prenatals. We should Johnathon labs as scheduled. [facility] 02-27-2024 Telephone encounter Note Pt 4 weeks and inquiring if she should have March's lab work completed now or wait until scheduled appt. Pt last labs completed 01/02/24. Pt also would like to know if it is okay to take with iron? Fely: Please advise Naga Johnson RN [facility] 02-05-2024 Hospital Discharge instructions Patient Education 02/05/2024 14:07:02 Acute Bronchitis, [...] condition. Follow these instructions at home: Take [id number] and prescription medicines only as told by [...] and water are not available, use hand elevated motorman. Avoid contact with people who have cold [...] it is easier to cough up. Take [id number] and prescription medicines only as told by [...] provider. Document Revised: 07/27/2022 Document Reviewed: 08/17/2021 [employer] Patient Education 2023 [employer] Follow Up Care 02/04/2024 08:47:42 With:PRAVEEN RESENDEZ FAAFP, Evans Tony, CHRIS, PED Address: [address] [place] [address] [place] [address]- When:Within 3 Month(s) [facility] 02-05-2024 Note Patient Education Pulmonary [...] Follow these instructions at home: ? Take vhsc-irn-kbjbmhm and prescription medicines only as told by [...] and water are not available, use hand elevated motorman. ? Avoid contact with people who have [...] is easier to cough up. ? Take ambt-cnb-wyxotwv and (more content not included)... [facility] 02-02-2024 Hospital Discharge instructions Follow Up Care 02/02/2024 11:19:56 With:Anni Bernstein MD, [facility], [facility] Address: [address] [place] [phone] When: only if needed [facility] 01-07-2024 Miscellaneous Notes No need for IV iron per CC'd chart from Dr. Calix. Attempt to call pt to notify. Left detailed message on, along with call back number on voicemail. Valeri Yan RN Dr Luna is requesting Triage to call Madhu with her FE results. Thank you documented in this encounter [facility] 01-07-2024 Telephone encounter Note No need for IV iron per CC'd chart from Dr. Calix. Attempt to call pt to notify. Left detailed message on, along with call back number on voicemail. Valeri Yan RN [facility] 01-02-[address] Luna is requesting Triage to call Madhu with her FE results. Thank you [facility] 01-02-2024 Instructions Nathaly Florence - 01/02/2024 2:08 PM EDT Triage to call iron results Continue Lovenox - patient prefers 40 mg (rather than rec 80mg) Encouraged her to reconsider Take B12 supplement in the form of a sublingual tablet RTC in 3 months Labs same day Vitamin D, TSH, Calcium with CMP documented in this encounter [facility] 01-02-2024 Nurse Note Patient states that at [...] MRI but was negative. Serina Dawson MA [facility] 01-02-2024 Nurse Note Patient states that at [...] Serina Dawson MA documented in this encounter [facility] 01-02-2024 History of Present illness Narrative Images from the original note were not included. NAME: Madhu Rendon [facility] NO.: [id number] DATE OF SERVICE: January 02, 2024 (jose) [...] later in 2018. These were found in [place], [place]. I don't have access to these [...] a target-like rash shortly before presenting to [facility] in 2015 with headaches and [...] soon. When she had a stroke in [place], she had symptoms up to a month [...] and stayed on Lovenox Hgb 13.1 @ [facility] Recommended ER if persisting bleeding but she [...] and at age 69. Both lived in [facility] but she was adopted. She was not able to see ID in October and will be seeing Dr. Baugh next week. Also will have her see Dr. Hamlin for her clotting disorder and make any other recommendations to optimize her treatment. Updated Visit, October 08, 2020: Telephone only Received call from pt stating she was seen in [facility] ER for numbness in her chest, throat, and extremities, and sob which has been worsening over the last week. We arranged a telephone visit for her to review questions with me. Madhu Rendon is a 34 year old female seen for Hypercoagulable state and recent concerns and symptoms that required her to be seen at [facility] ER. She went to the ER with Gradual worsening of breathing after progressive tingling of fingers and legs. She currently remains very fatigued even though she is sleeping well. Now recalls that before her stroke she remembers having a bull's eye rash and was seen with severe headaches in [place], [place] - was found to have a [...] a root canal and was sent to [facility] for MRI which was negative but non-contrasted. [...] history goes back to January 2016 in [facility] where she had persisting headaches and slurred speech followed by lower extremity weakness. This took a few months to resolve and she is back to her normal state of being but some point in time during her her next she was seen by Dr. Humera Hyde in [place] as well and was found to have [...] which included preparing to see the patient, iwze-wu-sdym patient care, completing clinical documentation, performing a medically appropriate examination, counseling and educating the patient/family/caregiver, ordering medications, tests, or procedures, independently interpreting results (not separately reported), communicating results to the patient/family/caregiver, and care coordination (not separately reported). Salvador Calix MD, CPE [facility]ology [facility] On[facility] Provided at: [place], [place] Scribe Attestation: This note was scribed [...] under my direction. CC: MD Wilton Day, [address] [place] [address] Humaira Gaviria MD [address] [place] [facility] [place] [place] [address] MD Cosmo Kingston MD Michael Blank, MD documented in this encounter [facility] 01-02-2024 Note HNO ID: [id number] Author: SALVADOR CALIX MD Service: ? Author Type: Physician Type: Progress Notes Filed: 01/04/2024 12:54 Note Text: NAME: Madhu Rendon CLINIC NO.: [id number] DATE OF SERVICE: January 02, 2024 (Levon) [...] later in 2018. These were found in [place], [place]. I don't have access to these [...] a target-like rash shortly before presenting to [facility] in 2016 with headaches and [...] soon. When she had a stroke in [place], she had symptoms up to a month [...] and stayed on Lovenox Hgb 13.1 @ [facility] Recommended ER if persisting bleeding but she would prefer to stay on Lovenox for now. Updated Visit, July 27, 2022: Madhu returns today an (more content not included)... [facility] 12-17-2023 Telephone encounter Note Pt updated and will follow up with PCP. Denies further questions, needs or concerns at this time for our provider. Naga Johnson RN [facility] 12-17-2023 Miscellaneous Notes Pt updated and will [...] test. Pt encouraged to test for verification. Pharm/Feyl: possible delayed reaction to IV Iron 11/29/23? documented in this encounter [facility] 12-17-2023 Telephone encounter Note No - sounds like she has some infectious process going on - would rec PCP. [facility] 12-17-2023 Telephone encounter Note Pt reports onset [...] possible delayed reaction to IV Iron 11/29/23? [facility] 11-29-2023 Note HNO ID: [id number] Author: BECKI GUTIERREZ RN Service: ? Author Type: Registered Nurse Type: Progress Notes Filed: 11/29/2023 16:28 Note Text: Y Jose Luis [facility] 11-29-2023 History of Present illness Narrative Y Y documented in this encounter [facility] 11-29-2023 Telephone encounter Note MARSHA Connell, treatment aware of changes. [facility] 11-29-2023 Miscellaneous Notes MARSHA Connell, treatment aware [...] different iron formulation. documented in this encounter [facility] 11-29-2023 Telephone encounter Note Spoke with pt. She will obtain Pepcid OTC from our retail pharmacy on arrival to take (1) 20 mg tablet. She is aware and agreeable to IV steroid for infusion as well. Naga Johnson RN [facility] 11-29-2023 Telephone encounter Note A one time dose of dexamethasone is safe when . I added 8mg to the plan for your review. Please adjust dose if necessary. Thanks, Raissa Aly RPh [facility] Work Phone: 11-29-2023 Telephone encounter Note Famotidine is safe when . Do we want to administer the venofer slower? What rate? Thanks, Raissa Aly RPh [facility] 11-29-2023 Telephone encounter Note Called and discussed with pt. She is and cannot take Benadryl. She is reluctant to take Pepcid. Attempted to call retail, infusion pharmacy and [facility], no answer, to ask safety of pepcid in . Pharm/Fely: please advise Naga Johnson RN [facility] 11-29-2023 Telephone encounter Note Perry Isidor - sometimes it depends on how quickly [...] have to choose a different iron formulation. [facility] 11-15-2023 Note HNO ID: [id number] Author: JUNE LOMBARDO RN Service: ? Author Type: Registered Nurse Type: Progress Notes Filed: 11/15/2023 16:30 Note Text: Pt reports having nausea and lightheadedness this morning. She has seen her pcp regarding these symptoms and is being worked up to figure out the cause. [facility] 11-15-2023 History of Present illness Narrative Pt reports having nausea and lightheadedness this morning. She has seen her pcp regarding these symptoms and is being worked up to figure out the cause. documented in this encounter [facility] 11-15-2023 Telephone encounter Note 1st report of treatment-Non oncology regimen (Venofer) Patient holds Medicaid coverage and there is no available FA at this time. [facility] 11-15-2023 Miscellaneous Notes 1st report of treatment-Non oncology regimen (Venofer) Patient holds Medicaid coverage and there is no available FA at this time. documented in this encounter [facility] 11-09-2023 Hospital Discharge instructions Patient Education 11/09/2023 15:56:11 Preventing Hypoglycemia [...] your hypoglycemia. Where to find more information [place] Diabetes Association: www.diabetes.org National Dewitt of Diabetes and Digestive and Kidney Diseases: [...] provider. Document Revised: 03/17/2021 Document Reviewed: 03/17/2021 [facility] Patient Education 2022 [employer]. 11/09/2023 15:56:06 Prediabetes Prediabetes Prediabetes is when [...] hard liquor (44 mL). General instructions Take wupg-pdx-fammgma and prescription medicines only as told by [...] is important. Where to find more information [place] Diabetes Association: www.diabetes.org Academy of Nutrition and Dietetics: www.eatright.org [place] Heart Association: www.heart.org Contact a health care [...] provider. Document Revised: 07/15/2020 Document Reviewed: 07/15/2020 [facility] Patient Education 2022 [employer]. 11/09/2023 15:56:02 Palpitations Palpitations Palpitations are feelings [...] your health care provider. General instructions Take lrpn-llb-belqqul and prescription medicines only as told by [...] provider. Document Revised: 09/07/2021 Document Reviewed: 09/07/2021 [facility] Patient Education 2022 [employer]. 11/09/2023 15:55:58 Fatigue Fatigue If you have [...] Follow these instructions at home: Medicines Take efih-rup-yjupuvp and prescription medicines only as told by [...] day. Text the Crisis Text Line at 132588. Summary If you have fatigue, you feel [...] provider. Document Revised: 02/06/2022 Document Reviewed: 02/06/2022 [facility] Patient Education 2022 [employer]. Follow Up Care 11/08/2023 11:31:43 With:PRAVEEN RESENDEZ FAAFP, CHRIS Perez, PED Address: [address] [place] [address] [place] [id number]- When: Unknown [facility] 11-09-2023 Note Patient Education Emergency [...] health care provider. General instructions ? Take juny-bsl-ycgwnba and prescription medicines only as told by [...] provider. Document Revised: 09/07/2021 Document Reviewed: 09/07/2021 Elsevier Patient Education ? 2022 [facility] [employer] Endocrinology Preventing Hypoglycemia Hypoglycemia occurs when [...] hypoglycemia may not (more content not included)... [facility] 11-09-2023 History of Present illness Narrative Patient appears on the [facility] First Time Treatment List for a non-oncology treatment. No psychosocial assessment is indicated. KRISTOPHER Huerta documented in this encounter [facility] 11-06-2023 Telephone encounter Note Pt informed of Fely's message and denies any questions, needs or concerns at this time. She will call PCP for additional workup of palpitations, should the IV iron not help, or they worsen. Discussed reasons for immediate evaluation; chest pain, shortness of breath, lightheadedness, dizziness, etc. Appointments verified. Naga Johnson RN [facility] 11-06-2023 Miscellaneous Notes Pt informed of Fely's message and denies any questions, needs or concerns at this time. She will call PCP for additional workup of palpitations, should the IV iron not help, or they worsen. Discussed reasons for immediate evaluation; chest pain, shortness of breath, lightheadedness, dizziness, etc. Appointments verified. Naga Johnson, RN Thanks Brit - will forward to [...] stating she is on a blood thinner. Roberta Haskins Appointment tomorrow cancelled. Andres tried calling her this morning and was unable to get a hold of her. Will keep trying patient to schedule for Iron. Roberta Haskins ----- Message from Naga Johnson RN sent at 11/05/2023 11:53 AM EDT ----- ----- Message ----- From: Salvador Calix MD Sent: 11/05/2023 11:33 AM EDT To: [facility] Triage Pool; [facility] Clerical Pool Perry Isidro - looks like you need Iron again. Dr. Middleton Cancel her virtual set for 11/05 and 11/19 - infuse 3 doses weekly iron and then see her in 8 weeks in person - labs same day. Thanks! documented in this encounter [facility] 11-05-2023 Telephone encounter Note Thanks Brit - [...] get you feeling better. Best, Dr. Middleton [facility] 11-05-2023 Telephone encounter Note Patient has been [...] stating she is on a blood thinner. Roberta Haskins [facility] 11-05-2023 Telephone encounter Note Appointment tomorrow cancelled. Andres tried calling her this morning and was unable to get a hold of her. Will keep trying patient to schedule for Iron. Roberta Haskins [facility] 11-05-2023 Telephone encounter Note ----- Message from Naga Johnson RN sent at 11/05/2023 11:53 AM EDT ----- ----- Message ----- From: Salvador Calix MD Sent: 11/05/2023 11:33 AM EDT To: [facility] Triage Pool; [facility] Clerical Pool Perry Isidro - looks like you need Iron again. Dr. Middleton Cancel her virtual set for 11/05 and 11/19 - infuse 3 doses weekly iron and then see her in 8 weeks in person - labs same day. Thanks! [facility] 10-23-2023 Hospital Discharge instructions Patient Education 10/23/2023 17:12:54 Deviated Septum [...] specializes in ear, nose, and throat disorders (team primary care physician, or ENT) for more tests and treatment. [...] (rhinoplasty). Follow these instructions at home: Take vjvv-fhn-nwjrkfk and prescription medicines only as told by [...] specializes in ear, nose, and throat disorders (team primary care physician, or ENT) for more tests and treatment. This information is not intended to replace advice given to you by your health care provider. Make sure you discuss any questions you have with your health care provider. Document Revised: 12/12/2021 Document Reviewed: 12/12/2021 [facility] Patient Education 2022 [employer]. 10/23/2023 17:12:52 Nasal Polyps Nasal Polyps Nasal [...] instructions at home: Medicines Take or use fdnt-fpn-acyrtcb and prescription medicines only as told by [...] provider. Document Revised: 04/05/2022 Document Reviewed: 04/05/2022 [facility] Patient Education 2022 [employer]. 10/23/2023 17:12:52 Nasal Polypectomy Nasal Polypectomy Nasal [...] including vitamins, herbs, eye drops, creams, and polp-ipb-wfeewzh medicines. Any problems you or family members [...] provider tells you to take them. Taking zigq-zdp-uxffwjj medicines, vitamins, herbs, and supplements. General instructions [...] provider. Document Revised: 04/05/2022 Document Reviewed: 04/05/2022 [facility] Patient Education 2022 [employer]. 10/23/2023 17:12:46 BMI for Adults BMI for [...] numbers. This can be done either in [place] ([place] or metric measurements. Note that charts and online BMI calculators are available to help you find your BMI quickly and easily without having to do these calculations yourself. To calculate your BMI in [place]ian ([place] measurements: 1.Measure your weight in pounds [...] Centers for Disease Control and Prevention: www.cdc.gov [place] Heart Association: www.heart.org National Heart, Lung, and Blood Dewitt: www.nhlbi.nih.gov Summary Body mass index (BMI) is a number that is calculated from a person's weight and height. BMI may help estimate how much of a person's weight is composed of fat. BMI can help identify those who may be at higher risk for certain medical problems. BMI can be measured using Tristanian measurements or metric measurements. BMI charts are used to identify whether you are underweight, normal weight, overweight, or obese. This information is not intended to replace advice given to you by your health care provider. Make sure you discuss any questions you have with your health care provider. Document Revised: 01/07/2020 Document Reviewed: 11/14/2019 [facility] Patient Education 2022 [employer]. Follow Up Care 10/23/2023 08:49:41 With:Lourdes Urrutia Address: [address] [place] [address], [place] [address]- When: only if needed [facility] 09-28-2023 Hospital Discharge instructions Patient Education 09/28/2023 21:22:15 Abdominal Pain, [...] Follow these instructions at home: Medicines Take cfxl-dva-pfddhvy and prescription medicines only as told by [...] Watch your condition for any changes. Take jwjt-wqk-itkhcmi and prescription medicines only as told by [...] provider. Document Revised: 06/04/2020 Document Reviewed: 08/25/2019 [employer] Patient Education 2022 [employer]. Follow Up Care 09/28/2023 18:22:59 With:Evans CASAS Address: [address], [place] [address]- Business (1) When:Within 3 Day(s) [facility] 09-28-2023 Hospital Discharge instructions Patient Education 09/28/2023 18:24:44 BMI for [...] numbers. This can be done either in Tristanian ([place] or metric measurements. Note that charts and online BMI calculators are available to help you find your BMI quickly and easily without having to do these calculations yourself. To calculate your BMI in [place]istanian ([place] measurements: 1.Measure your weight in pounds [...] Centers for Disease Control and Prevention: www.cdc.gov [place] Heart Association: www.heart.org National Heart, Lung, and Blood Dewitt: www.nhlbi.nih.gov Summary Body mass index (BMI) is a number that is calculated from a person's weight and height. BMI may help estimate how much of a person's weight is composed of fat. BMI can help identify those who may be at higher risk for certain medical problems. BMI can be measured using Tristanian measurements or metric measurements. BMI charts are used to identify whether you are underweight, normal weight, overweight, or obese. This information is not intended to replace advice given to you by your health care provider. Make sure you discuss any questions you have with your health care provider. Document Revised: 01/07/2020 Document Reviewed: 11/14/2019 [facility] Patient Education 2022 [employer]. 09/28/2023 18:24:42 Hypertension, Adult, Nbmw-vb-Xvug Hypertension, Adult Hypertension is another name for [...] doctor. Keep all follow-up visits. Medicines Take cqrv-buz-iayxggn and prescription medicines only as told by [...] provider. Document Revised: 02/02/2022 Document Reviewed: 02/02/2022 [facility] Patient Education 2022 [employer]. 09/28/2023 18:24:32 Abdominal Pain, Adult, Kuwx-mg-Aavx Abdominal Pain, Adult Many things can cause belly (abdominal) pain. Most times, belly pain is not dangerous. Many cases of belly pain can be watched and treated at home. Sometimes, though, belly pain is serious. Your doctor will try to find the cause of your belly pain. Follow these instructions at home: Medicines Take ueqr-sgr-xlvgcrl and prescription medicines only as told by [...] your belly pain for any changes. Take ibsn-kqu-fpwxknc and prescription medicines only as told by [...] provider. Document Revised: 08/25/2019 Document Reviewed: 08/25/2019 [facility] Patient Education 2022 [employer]. Follow Up Care 09/28/2023 16:11:11 With:Emergency room Address: When: only if needed Comments:Patient was instructed to contact emergency room for any worsening abdominal pain, concerns, or complications. [facility] 09-28-2023 Evaluation + Plan note [...] 12:40:00 PM Scheduled Provider:Evans CASAS DO, FAAFP Location:[facility] Appointment Type:FM Open Future Scheduled Tests Laboratory* HgbA1c 08/03/23 [facility]05-30-2024 Telephone encounter Note* Telephone Encounter - Roberta Haskins - 09/27/2023 4:38 PM EDT Attempt has been made x2 to reschedule patient. She did not have labs drawn. Roberta Haskins [facility]05-30-2024 Miscellaneous Notes* Telephone Encounter - Krystal Haskinstany - 09/27/2023 4:38 PM EDT Attempt has been made x2 to reschedule patient. She did not have labs drawn. Roberta Haskins [facility] History of Present illness Narrative* Salvador Calix MD - 09/26/2023 9:11 AM EDT Did not have labs done to prep for this visit - reschedule. Salvador Calix MD [facility] Hospital Discharge instructions Patient Education 08/03/2023 12:18:51 [...] your health care provider or diet and collections specialist (dietitian). This may include: ?Eating fewer [...] provider. Document Revised: 06/12/2021 Document Reviewed: 06/12/2021 [facility] Patient Education 2022 [employer]. Follow Up Care 02/15/2023 10:07:52 With:PRAVEEN RESENDEZ FAAFP, Evans Tony, CHRIS, PED Address: [address], [place] [address]- When:Within 4 Month(s) [facility] 04-05-2024 Evaluation + Plan note Future Scheduled Tests Laboratory* HgbA1c 08/03/23 Radiology* CT Soft Tissue Neck w/ Contrast 11/12/23 [facility] 02-22-2024 Hospital Discharge instructions Patient [...] or if there is an kennedy for FTL SOLAR. Most glucose meters store a record of [...] mayhave. Where to find more information The [place] Diabetes Association: www.diabetes.org The Association of Diabetes [...] provider. Document Revised: 01/12/2021 Document Reviewed: 01/12/2021 [facility] Patient Education 2022 [employer]. 06/21/2023 06:07:34 Preventing Iron Deficiency Anemia, Adult [...] iron. Foods high in vitamin C include: ?Knox fruits, such as tai, oranges, and grapefruits. [...] iron supplement is right for you. Take qhbc-pnj-hgilyvm and prescription medicines only as told by your health care provider. Keep all follow-up visits. Where to find more information Learn more about preventing iron deficiency from: National Heart, Lung, and Blood Dewitt: www.nhlbi.nih.gov [place] Society of Hematology: www.hematology.org Contact a health [...] provider. Document Revised: 05/24/2022 Document Reviewed: 05/24/2022 [facility] Patient Education 2022 [employer]. 06/21/2023 06:07:28 BMI for Adults BMI for [...] numbers. This can be done either in Tristanian ([place] or metric measurements. Note that charts and online BMI calculators are available to help you find your BMI quickly and easily without having to do these calculations yourself. To calculate your BMI in [place]istanian ([place] measurements: 1.Measure your weight in pounds [...] Centers for Disease Control and Prevention: www.cdc.gov [place] [employer] Association: www.heart.org National Heart, Lung, and Blood Dewitt: www.nhlbi.nih.gov Summary Body mass index (BMI) is a number that is calculated from a person's weight and height. BMI may help estimate how much of a person's weight is composed of fat. BMI can help identify thosewho may be at higher risk for certain medical problems. BMI can be measured using Tristanian measurements or metric measurements. BMI charts are used to identify whether you are underweight, normal weight, overweight, or obese. This information is not intended to replace advice given to you by your health care provider. Make sure you discuss any questions you have with your health care provider. Document Revised: 01/07/2020 Document Reviewed: 11/14/2019 [facility] Patient Education 2022 [employer]. Follow Up Care 06/19/2023 13:39:56 With:PRAVEEN RESENDEZ FAAFP, Evans Tony, CHRIS, PED Address: [address] [place] [address] [place] [address]- When: Unknown [facility] 02-20-2024 Miscellaneous Notes* Telephone Encounter - Naga Johnson RN - 06/19/2023 1:05 PM EST Pt called back and aware of Fely's message. She is agreeable to POC and denies further needs at thistime. She will call PCP to follow up on TSH Naga Johnson RN * Telephone Encounter - Naga Johnson RN - 06/19/2023 12:26 PM EST MediaVt message sent Naga Johnson RN * Telephone [...] labs and advise * Telephone Encounter - Roberta Haskins - 06/15/2023 2:36 PM EST Triage to call lab results Roberta Haskins documented in this encounterC[facility]-16-[facility]24 Instructions* Patient Instructions* Nathaly Carney - 06/15/2023 [...] TSH, Calcium with CMP documented in this encounterCleveland [facility]02-16-2024 Nurse Note* Serina Horton MA - 06/15/2023 [...] exercise. Serina Dawson MA documented in this encounterCleveland Clinic [facility]02-16-2024 History of Present illness Narrative* Salvador Calix MD - 06/15/2023 2:00 PM EST Images from the original note were not included. NAME: Madhu Rendon CLINIC NO.: [id number] DATE OF SERVICE: June 15, 2023 (Levon) Some elements in this clinic note that are critical to medical decision making have been carefully reviewed and included from a prior clinic note dated: May 31, 2023 (Levon) Additional Clinicians involved in Madhu Rendon's care: Jorge Mcwilliams, Humaira Gaviria, CC: hypercoag state. ASSESSMENT: 37 year old woman 25 weeks presents with a prior history of CVA in 2016 and anantiphospholipid antibody that was identified much later in 2018. These were found in [place], [place]. I don't have access to these [...] a target-like rash shortly before presenting to [facility] in 2016 with headaches and [...] Monge soon. When she hada stoke in [place], she had symptoms up to a month [...] and stayed on Lovenox Hgb 13.1 @ [facility] Recommended ER if persisting bleeding but she [...] and at age 69. Both lived in [facility] but she was adopted. She was not able to see ID in October and will be seeing Dr. Baugh next week. Also will have her see Dr. Hamlin for her clotting disorder and make any other recommendations to optimize her treatment. Updated Visit, October 08, 2020: Telephone only Received call from pt stating she was seen in [facility] ER for numbness in her chest, throat, and extremities, and sob which has been worsening over the last week. We arranged a telephone visit for her franci questions with me. Madhu Rendon is a 34 year old female seen for Hypercoagulable state and recent concerns and symptoms that required her to be seen at [facility] ER. She went to the ER with Gradual worsening of breathing after progressive tingling of fingers and legs. She currently remains very fatigued even though she is sleeping well. Now recalls that before her stroke she remembers having a bull's eye rash and was seen with severe headaches in [facility] was found to have a stroke [...] a root canal and was sent to [facility] for MRI which was negative but non-contrasted. [...] history goes back to January 2016 in [facility] where she had persisting headaches and slurred speech followed by lower extremity weakness. This took a few months to resolve and she is back to her normal state of being but some point in time during her her next she was seen by Dr. Humera Hyde in [place] as well and was found to have [...] which included preparing to see the patient, qlyu-ga-uzak patient care, completing clinical documentation, performing a medically appropriate examination, counseling and educating the patient/family/caregiver, ordering medications, tests, or p rocedures, independently interpreting results (not separately reported), communicating results to the patient/family/caregiver, and care coordination (not separately reported). Salvador Calix MD, CPE Hematology and Oncology Services Provided at: [place], [place] Scribe Attestation: This note was scribed [...] under my direction. CC: MD Wilton Day, [address] [place] [address] Humaira Gaviria MD [address] [place] [id number] MD Cosmo Kingston MD Michael Blank, MD documented in this encounterC[facility]02-12-2024 Miscellaneous Notes* Telephone Encounter - Ebony Redding Ma - 06/11/2023 10:43 AM EST Labs for appointment on 06/15. Ebony Redding Ma documented in this encounterCleveland Clinic [facility]02-12-2024 Miscellaneous Notes* Telephone Encounter - Nicol Avila - 06/11/2023 9:[address] Monge office spoke with Brinda. Patient is scheduled to see Dr Mnoge on 06/20. Nicol Salgado * Telephone Encounter [...] appointment. Nicol Salgado * [facility]06[facility]23 8:37 AM EST Records faxed. * Telephone Encounter - Nicol Avila - 06/04/2023 9:12 AM EST Bhavna: Information ready for you. Nicol Salgado * Telephone Encounter - Marleen Mcdonald - 06/01/2023 9:[address] Luna is referring Madhu back to see Dr. Peng Monge / Neurology / Yadi Dx: vision changes and numbness of face. Pt states that it has been a few years since she was last seen by him. [facility] [address] [facility] [place] Bhavna, Please fax records Andres, Please follow up on this appt. Thank you documented in this encounterCleveland Clinic [facility]02-01-2024 History of Present illness Narrative* Salvador Calix MD - 05/31/2023 4:30 PM EST Images from the original note were not included. NAME: Madhu Rendon CLINIC NO.: [id number] DATE OF SERVICE: May 31, 2023 (Levon) Some elements in this clinic note that are critical to medical decision making have been carefully reviewed and included from a prior clinic note dated: March 19, 2023 (Levon) Additional Clinicians involved in Madhu Rendon's care: Drs. Herrmann, Jorge Monge, Humaira Gaviria, VIRTUAL VISIT PROGRESS NOTE This is a virtual visit using MediaVt Zoom Video Visit. It required patient- provider interaction for the medical decision making as documented below. I have communicated my name and active licensure. The patient's identity and physical location wereverified at the time of this visit. Either the patient or their legal direct sales representative has been informed of the risks and benefits of -- and alternatives to -- treatment through a remote evaluation andconsents to proceed with the evaluation remotely. CC: hypercoag state. ASSESSMENT: 37 year old woman 25 weeks presents with a prior history of CVA in 2016 and anantiphospholipid antibody that was identified much later in 2018. These were found in [place], [place]. I don't have access to these [...] a target-like rash shortly before presenting to [facility] in 2016 with headaches and [...] and stayed on Lovenox Hgb 13.1 @ [facility] Recommended ER if persisting bleeding but she [...] and at age 69. Both lived in [facility] but she was adopted. She was not able to see ID in October and will be seeing Dr. Baugh next week. Also will have her see Dr. Hamlin for her clotting disorder and make any other recommendations to optimize her treatment. Updated Visit, October 08, 2020: Telephone only Received call from pt stating she was seen in [facility] ER for numbness in her chest, throat, and extremities, and sob which has been worsening over the last week. We arranged a telephone visit for her chanw questions with me. Madhu Rendon is a 34 year old female seen for Hypercoagulable state and recent concerns and symptoms that required her to be seen at [facility] ER. She went to the ER with Gradual worsening of breathing after progressive tingling of fingers and legs. She currently remains very fatigued even though she is sleeping well. Now recalls that before her stroke she remembers having a bull's eye rash and was seen with severe headaches in [facility] was found to have a stroke [...] a root canal and was sent to [facility] for MRI which was negative but non-contrasted. [...] history goes back to January 2016 in [facility] where she had persisting headaches and slurred speech followed by lower extremity weakness. This took a few months to resolve and she is back to her normal state of being but some point in time during her her next she was seen by Dr. Humera Hyde in [place] as well and was found to have [...] CPE Hematology and Oncology Services Provided at: [place], [place] CC: MD Wilton Day, [address] [place] [address] Humaira Gaviria MD [address] [place] [id number] MD Cosmo Kingston MD Michael Blank, MD documented in this encounterC[facility]02-01-2024 Instructions* Patient Instructions* Salvador Calix MD - [...] TSH, Calcium with CMP documented in this encounterC[facility]01-26-2024 Hospital Discharge instructions Patient Education 05/25/2023 12:02:10 [...] your ears completely after. General instructions Take kcqb-zam-bcpvhad and prescription medicines only as told by [...] provider. Document Revised: 06/27/2021 Document Reviewed: 06/27/2021 [facility] Patient Education 2022 [employer]v. 05/25/2023 12:02:06 Dyshidrotic Eczema Dyshidrotic Eczema Dyshidrotic [...] care provider who specializes in skin conditions (director clinical pharmacology) tohelp diagnose and treat this condition. How [...] locks in moisture. Medicines Take and apply ryjj-nxo-zzffpkx and prescription medicines only as told by [...] provider. Document Revised: 01/24/2021 Document Reviewed: 01/24/2021 [facility] Patient Education 2022 [employer]. 05/25/2023 12:02:02 Allergies, Adult, Qdqy-zi-Ptab Allergies, Adult An allergy means that your [...] instructions at home: Medicines Take or apply gbmu-cff-jvqqvzr and prescription medicines only as told by [...] to the hospital. Summary Take or apply lyuj-anx-ecuivfk and prescription medicines only as told by [...] provider. Document Revised: 02/25/2020 Document Reviewed: 02/25/2020 [facility] Patient Education 2022 [employer]. Follow Up Care 05/21/2023 12:21:27 With:PRAVEEN RESENDEZ FAAFP, Evans Tony, CHRIS, PED Address: [facility] [address], [place] [address]- When:Within 2 Month(s) [facility] 11-20-2023 History of Present illness Narrative* Salvador Calix MD - 03/19/2023 4:45 PM EST Images from the original note were not included. NAME: Madhu Rendon CLINIC NO.: [id number] DATE OF SERVICE: March 19, 2023 (Levon) [...] visit. Either the patient or their legal direct sales representative has been informed of the risks and benefits of -- and alternatives to -- treatment through a remote evaluation andconsents to proceed with the evaluation remotely. CC: hypercoag state. ASSESSMENT: 37 year old woman 25 weeks presents with a prior history of CVA in 2016 and anantiphospholipid antibody that was identified much later in 2018. These were found in [place], [place]. I don't have access to these [...] a target-like rash shortly before presenting to [facility] in 2016 with headaches and [...] and stayed on Lovenox Hgb 13.1 @ [facility] Recommended ER if persisting bleeding but she [...] and at age 69. Both lived in [facility] but she was adopted. She was not able to see ID in October and will be seeing Dr. Baugh next week. Also will have her see Dr. Hamlin for her clotting disorder and make any other recommendations to optimize her treatment. Updated Visit, October 08, 2020: Telephone only Received call from pt stating she was seen in [facility] ER for numbness in her chest, throat, and extremities, and sob which has been worsening over the last week. We arranged a telephone visit for her chanw questions with me. Madhu Rendon is a 34 year old female seen for Hypercoagulable state and recent concerns and symptoms that required her to be seen at [facility] ER. She went to the ER with Gradual worsening of breathing after progressive tingling of fingers and legs. She currently remains very fatigued even though she is sleeping well. Now recalls that before her stroke she remembers having a bull's eye rash and was seen with severe headaches in [facility] was found to have a stroke [...] a root canal and was sent to [facility] for MRI which was negative but non-contrasted. [...] history goes back to January 2016 in [facility] where she had persisting headaches and slurred speech followed by lower extremity weakness. This took a few months to resolve and she is back to her normal state of being but some point in time during her her next she was seen by Dr. Humera Hyde in [place] as well and was found to have [...] CPE Hematology and Oncology Services Provided at: [place], [place] CC: MD Wilton Day, [address] [place] [address] Humaira Gaviria MD [address] [place] [id number] MD Cosmo Kingston MD Michael Blank, MD documented in this encounterC[facility]11-20-2023 Instructions* Patient Instructions* Salvador Calix MD - 03/19/2023 4:44 PM EST Continue Lovenox - patient prefers 40 mg (rather than rec 80mg) Take B12 supplement in the form of a sublingual tablet. Take Vitamin D3 5000 international unit(s) daily Check labs in 8 weeks Phone / Virtual call after documented in this encounterC[facility]10-19-2023 Hospital Discharge instructions Patient Education 02/15/2023 10:13:08 Ear Drops, Adult, Plou-wi-Qhfm Ear Drops, Adult Your doctor has found [...] cannot use soap and water, use hand elevated motorman. 2.Make sure your ears are clean and [...] you cannot use soapand water, use hand elevated motorman. Follow these instructions at home: Use the [...] provider. Document Revised: 02/11/2020 Document Reviewed: 02/11/2020 [facility] Patient Education 2022 [facility] [employer] 02/15/2023 10:13:05 Otitis Externa, Ibkq-zp-Fnam Otitis Externa Otitis externa is an infection [...] if you start to feel better. Take uruk-peu-zwzlcfp and prescription medicines only as told by [...] provider. Document Revised: 06/29/2021 Document Reviewed: 06/29/2021 [facility] Patient Education 2022 [employer]v. Follow Up Care 02/14/2023 12:28:12 With:PRAVEEN RESENDEZ FAAFP, CHRIS Perez, PED Address: [address] [place] [address] [place] [address]- When:Within 2 Month(s) [facility] 08-25-2023 Hospital Discharge instructions Patient [...] including vitamins, herbs, eye drops, creams, and mapd-vdf-oyzlzsa medicines. ?Whether you are or may be [...] provider. Document Revised: 12/28/2021 Document Reviewed: 11/19/2020 [facility] Patient Education 2022 [employer]. 12/22/2022 15:19:23 Fatigue Fatigue If you have [...] Follow these instructions at home: Medicines Take pzxd-jhf-cmnognn and prescription medicines only as told by [...] the National Suicide Prevention Lifeline at or 731. This is open 24 hours a day. Text the Crisis Text Line at 114121. Summary If you have fatigue, you feel [...] provider. Document Revised: 02/06/2022 Document Reviewed: 02/06/2022 [facility] Patient Education 2022 [employer]. Follow Up Care 12/22/2022 10:22:02 With:Shirlene YEBOAH, Lourdes Baltazar Address: [address] [place] [address] [place], [place] [address]- When: only if needed [facility] 08-25-2023 Instructions* Patient Instructions* Salvador Calix MD - 12/22/2022 10:13 AM EDT Continue Lovenox - patient prefers 40 mg (rather than rec 80mg) Take B12 supplement in the form of a sublingual tablet. Take Vitamin D3 5000 international unit(s) daily Check labs in 8 weeks Phone / Virtual call after documented in this encounterC[facility]08-25-2023 History of Present illness Narrative* Salvador Calix MD - 12/22/2022 9:55 AM EDT Images from the original note were not included. Salvador Calix MD NAME: Madhu Rendon CLINIC NO.: [id number] DATE OF SERVICE: December 22, 2022 (Levon) Some elements in this clinic note that are critical to medical decision making have been carefully reviewed and included from a prior clinic note dated: September 28, 2022 (Levon) Additional Clinicians involved in Madhu Rendon's care: Jorge Mcwilliams, Humaira Gaviria, VIRTUAL VISIT PROGRESS NOTE This is a virtual visit using Telephone only for 20 minutes . It required patient-provider interaction for the medical decision making as documented below. I have communicated my name and active licensure. The patient's identity and physical location wereverified at the time of this visit. Either the patient or their legal direct sales representative has been informed of the risks and benefits of -- and alternatives to -- treatment through a remote evaluation andconsents to proceed with the evaluation remotely. CC: hypercoag state. ASSESSMENT: 37 year old woman with a prior history of CVA in 2016 and an antiphospholipid antibody that was identified much later in 2018. These were found in [place], [place]. I don't have access to these [...] a target-like rash shortly before presenting to [facility] in 2016 with headaches and [...] and stayed on Lovenox Hgb 13.1 @ [facility] Recommended ER if persisting bleeding but she [...] and at age 69. Both lived in [facility] but she was adopted. She was not able to see ID in October and will be seeing Dr. Baugh next week. Also will have her see Dr. Hamlin for her clotting disorder and make any other recommendations to optimize her treatment. Updated Visit, October 08, 2020: Telephone only Received call from pt stating she was seen in [facility] ER for numbness in her chest, throat, and extremities, and sob which has been worsening over the last week. We arranged a telephone visit for her chanw questions with me. Madhu Rendon is a 34 year old female seen for Hypercoagulable state and recent concerns and symptoms that required her to be seen at [facility] ER. She went to the ER with Gradual worsening of breathing after progressive tingling of fingers and legs. She currently remains very fatigued even though she is sleeping well. Now recalls that before her stroke she remembers having a bull's eye rash and was seen with severe headaches in [place], [place] - was found to have a [...] a root canal and was sent to [facility] for MRI which was negative but non-contrasted. [...] history goes back to January 2016 in [facility] where she had persisting headaches and slurred speech followed by lower extremity weakness. This took a few months to resolve and she is back to her normal state of being but some point in time during her her next she was seen by Dr. Humera Hyde in [place] as well and was found to have [...] CPE Hematology and Oncology Services Provided at: [place], [place] CC: MD Wilton Day, [address] [place] [address] Humaira Gaviria MD [address] [facility] [id number] MD Cosmo Kingston MD Michael Blank, MD documented in this encounterCleveland Clinic [facility]08-16-2023 Miscellaneous Notes* Telephone Encounter - Roberta Haskins - 12/13/2022 10:25 AM EDT Patient called back and scheduled her lab appointment for Sunday. Phone follow up for these labs , 12/21. FELY: Madhu is asking if you could check her Vitamin D level and Thyroid. Per patient, she has issues with her blood sugars and her sister had the same issue and found out her Vitamin D level was abnormal. Roberta Haskins * Telephone Encounter - Roberta Haskins - 12/13/2022 10:14 AM EDT Call placed to patient again, no answer. Left detailed message on voicemail to call back to schedule lab appointment. Roberta Haskins * Telephone Encounter - Roberta Haskins - 12/11/2022 4:[address] Luna, patient did not have her labs drawn and will need this rescheduled. Call placed to patient, no answer and unable to leave message; line just rings busy . Will attempt to contact patientat a later time. Roberta Haskins documented in this encounterCleveland Clinic [facility] Hospital06-23-2023 Hospital Discharge instructions Patient Education 10/20/2022 10:37:38 [...] your health care provider or diet and collections specialist (dietitian). This may include: ?Eating fewer [...] right away. Call your local emergency services (266 in the [place] Do not drive yourself [...] provider. Document Revised: 06/12/2021 Document Reviewed: 06/12/2021 [facility] Patient Education 2022 [employer]. 10/20/2022 10:37:18 Preventing Type 2 Diabetes Mellitus [...] with a registered dietitian. This diet and collections specialist can help you make a healthy [...] more about diabetes and diabetes prevention, visit: [place] [employer] Association (ADA): www.diabetes.org National Dewitt of Diabetes and Digestive and Kidney Diseases: [...] provider. Document Revised: 07/11/2021 Document Reviewed: 07/11/2021 [facility] Patient Education 2022 [employer]. 10/20/2022 10:37:17 Preventing Hypoglycemia Preventing Hypoglycemia Hypoglycemia [...] your hypoglycemia. Where to find more information [place] [employer]: www.diabetes.org National Dewitt of Diabetes and Digestive and Kidney Diseases: [...] provider. Document Revised: 03/17/2021 Document Reviewed: 03/17/2021 [facility] Patient Education 2022 [employer] 10/20/2022 10:37:16 Gestational Diabetes Mellitus, Diagnosis, Bsit-ie-Llzk Gestational Diabetes Mellitus, Diagnosis Gestational diabetes mellitus [...] follow-up visits. Where to find more information [place] [employer] Association (ADA): diabetes.org Association of Diabetes Care & Education Specialists (ADCES): diabeteseducator.org Centers for Disease Control and Prevention (CDC): cdc.gov [place] Association: americanpregnancy.org U.S. Department of Agriculture MyPlate: [...] provider. Document Revised: 09/20/2020 Document Reviewed: 09/20/2020 [facility] Patient Education 2022 [employer]. Follow Up Care 09/19/2022 14:47:09 With:PRAVEEN RESENDEZ FAAFP, CHRIS Perez, PED [facility] [place] [address]- When:Within 3 Month(s) [facility] 06-01-2023 History of Present illness Narrative* Salvador Calix MD - 09/28/2022 5:00 PM EDT Images from the original note were not included. Salvador Calix MD NAME: JusticeaMdhu reynolds CLINIC NO.: [id number] DATE OF SERVICE: September 28, 2022 (Levon) Some elements in this clinic note that are critical to medical decision making have been carefully reviewed and included from a prior clinic note dated: July 27, 2022 (Levon) Additional Clinicians involved in Madhu Rendon's care: Jorge Mcwilliams, Humaira Gaviria, VIRTUAL VISIT PROGRESS NOTE This is a virtual visit using Telephone only for 25 minutes . It required patient-provider interaction for the medical decision making as documented below. I have communicated my name and active licensure. The patient's identity and physical location wereverified at the time of this visit. Either the patient or their legal direct sales representative has been informed of the risks and benefits of -- and alternatives to -- treatment through a remote evaluation andconsents to proceed with the evaluation remotely. CC: hypercoag state. ASSESSMENT: 36 year old woman 25 weeks presents with a prior history of CVA in 2016 and anantiphospholipid antibody that was identified much later in 2018. These were found in [place], [place]. I don't have access to these [...] a target-like rash shortly before presenting to [facility] in 2016 with headaches and [...] and stayed on Lovenox Hgb 13.1 @ [facility] Recommended ER if persisting bleeding but she [...] and at age 69. Both lived in [facility] but she was adopted. She was not able to see ID in October and will be seeing Dr. Baugh next week. Also will have her see Dr. Hamlin for her clotting disorder and make any other recommendations to optimize her treatment. Updated Visit, October 08, 2020: Telephone only Received call from pt stating she was seen in [facility] ER for numbness in her chest, throat, and extremities, and sob which has been worsening over the last week. We arranged a telephone visit for her toreview questions with me. Madhu Rendon is a 34 year old female seen for Hypercoagulable state and recent concerns and symptoms that required her to be seen at [facility] ER. She went to the ER with Gradual worsening of breathing after progressive tingling of fingers and legs. She currently remains very fatigued even though she is sleeping well. Now recalls that before her stroke she remembers having a bull's eye rash and was seen with severe headaches in [place], [place] - was found to have a [...] a root canal and was sent to [facility] for MRI which was negative but non-contrasted. [...] history goes back to January 2016 in [facility] where she had persisting headaches and slurred speech followed by lower extremity weakness. This took a few months to resolve and she is back to her normal state of being but some point in time during her her next she was seen by Dr. Humera Hyde in [place] as well and was found to have [...] CPE Hematology and Oncology Services Provided at: [place], [place] CC: MD Wilton Day, DO [address] [place] [address] Humaira Gaviria MD [facility] [place] [address] MD Cosmo Kingston MD Michael Blank, MD documented in this encounterCleveland Clinic [facility]05-24-2023 Miscellaneous Notes* Telephone Encounter - Cheri Acharya Sec - 09/20/2022 7:06 AM EDT Cxed appt * Telephone Encounter - Valeri Yan RN - 09/19/2022 3:29 PM EDT Patient would like to have labs drawn at [facility]. Called [facility] lab to get fax number. Lab orders faxed to [phone] Valeri Yan RN PSS: Can you cancel lab appointment for 09/21/22 here. Thanks. Valeri Yan RN documented in this encounterCleveland Clinic [facility]04-04-2023 Instructions* Patient Instructions* Salvador Calix MD - 08/01/2022 10:56 AM EDT Continue Lovenox - patient prefers 40 mg (rather than rec 80mg) 8 weeks - labs Phone / Virtual call after documented in this encounterCleveland Clinic [facility]03-30-2023 History of Present illness Narrative* Salvador Calix MD - 07/27/2022 1:18 PM EDT NAME: Madhu Rendon CLINIC NO.: [id number] DATE OF SERVICE: July 27, 2022 (Levon) Some elements in this clinic note that are critical to medical decision making have been carefully reviewed and included from a prior clinic note dated: March 27, 2022 (Ankitjose) Additional Clinicians involved in Madhu Rendon's care: Drs. Herrmann, Jorge Monge, Humaira Gaviria, CC: hypercoag state. ASSESSMENT: 36 year old woman 25 weeks presents with a prior history of CVA in 2016 and anantiphospholipid antibody that was identified much later in 2018. These were found in [place], [place]. I don't have access to these [...] a target-like rash shortly before presenting to [facility] in 2016 with headaches and [...] and at age 69. Both lived in [facility] but she was adopted. She was not able to see ID in October and will be seeing Dr. Baugh next week. Also will have her see Dr. Hamlin for her clotting disorder and make any other recommendations to optimize her treatment. Updated Visit, October 08, 2020: Telephone only Received call from pt stating she was seen in [facility] ER for numbness in her chest, throat, and extremities, and sob which has been worsening over the last week. We arranged a telephone visit for her toreview questions with me. Madhu Rendon is a 34 year old female seen for Hypercoagulable state and recent concerns and symptoms that required her to be seen at [facility] ER. She went to the ER with Gradual worsening of breathing after progressive tingling of fingers and legs. She currently remains very fatigued even though she is sleeping well. Now recalls that before her stroke she remembers having a bull's eye rash and was seen with severe headaches in [facility] was found to have a stroke [...] a root canal and was sent to [facility] for MRI which was negative but non-contrasted. [...] history goes back to January 2016 in [facility] where she had persisting headaches and slurred speech followed by lower extremity weakness. This took a few months to resolve and she is back to her normal state of being but some point in time during her her next she was seen by Dr. Humera Hyde in [place] as well and was found to have [...] which included preparing to see the patient, qwva-fo-ijzi patient care, completing clinical documentation, obtaining and/or reviewing separately obtained history, performing a medically appropriate examination, counseling and educating the pat ient/family/caregiver, ordering medications, tests, or procedures, independently interpreting results (not separately reported), and care coordination (not separately reported). Salvador Calix MD, CPE Hematology and Oncology Services Provided at: [place], [place] CC: MD Wilton Day, [address] [place] [address] Humaira Gaviria MD [address] [place] [id number] MD Cosmo Kingston MD Michael Blank, MD documented in this encounterCleveland Clinic [facility]12-07-2022 History of Present illness Narrative* June Lombardo [...] to standard infusion rate. documented in this encounterCleveland Clinic Fairview Hospital12-06-2022 Miscellaneous Notes* Telephone Encounter - Marleen Ramirez [...] All questions answered. Pt transferred to front end developer at her request so she can reschedule dates of IV iron d/t otherappts. FELY: Pt would like to have Venofer ordered and not get Monoferric even if approved. Please place orders if agreeable. Meme Gonzalez RN documented in this encounterCleveland Clinic Fairview Hospital12-01-2022 Miscellaneous Notes* Telephone Encounter - Roberta Haskins - 03/30/2022 1:23 PM EST Attempted to contact patient again, no answer. Left another message. Roberta Haskins * Telephone Encounter - Roberta Haskins - 03/28/2022 2:32 PM EST Patient has been scheduled to begin on 04/05 - scheduled for Venofer and if Monoferric is approved, will cancel additional doses. Call placed to patient, no answer. Left message to call back to confirm scheduling. Roberta Haskins * Telephone Encounter - Meme Gonzalez RN - 03/28/2022 11:10 AM EST Images from the original note were not included. Salvador Calix MD [facility] Triage Pool; [facility] Clerical Pool She needs iron MUNIRA - if monoferric isn't approved, lets get her in weekly for Venna for. * Telephone Encounter - Roberta Haskins - 03/27/2022 2:57 PM EST 2. Consider IV iron a. Triage nurse to please call iron results when available this week documented in this encounterCleveland Clinic Fair[facility] Hospital11-28-2022 Instructions* Patient Instructions* Salvador Calix MD - 03/27/2022 2:51 PM EST Continue Lovenox - patient prefers 40 mg (rather than rec 80mg) Consider IV iron Triage nurse to please call iron results when available this week Will recheck antiphospholipid antibodies as ordered and every 6 months. RTC in 8 weeks - labs same day. documented in this encounterCleveland Clinic Fairview Hospital11-28-2022 History of Present illness Narrative* Salvador Calix MD - 03/27/2022 2:15 PM EST Images from the original note were not included. NAME: Madhu Rendon CLINIC NO.: [id number] DATE OF SERVICE: March 27, 2022 (berna) Some elements in this clinic note that are critical to medical decision making have been carefully reviewed and included from a prior clinic note dated: January 30, 2022 (Levon) Additional Clinicians involved in Madhu Rendon's care: Jorge Mcwilliams, Humaira Gaviria, CC: hypercoag state. ASSESSMENT: 36 year old woman 25 weeks presents with a prior history of CVA in 2016 and anantiphospholipid antibody that was identified much later in 2018. These were found in [place], [place]. I don't have access to these [...] a target-like rash shortly before presenting to [facility] in 2016 with headaches and [...] and at age 69. Both lived in [place], [place] - but she was adopted. She was not able to see ID in October and will be seeing Dr. Baugh next week. Also will have her see Dr. Hamlin for her clotting disorder and make any other recommendations to optimize her treatment. Updated Visit, October 08, 2020: Telephone only Received call from pt stating she was seen in [facility] ER for numbness in her chest, throat, and extremities, and sob which has been worsening over the last week. We arranged a telephone visit for her chanw questions with me. Madhu Rendon is a 34 year old female seen for Hypercoagulable state and recent concerns and symptoms that required her to be seen at [facility] ER. She went to the ER with Gradual worsening of breathing after progressive tingling of fingers and legs. She currently remains very fatigued even though she is sleeping well. Now recalls that before her stroke she remembers having a bull's eye rash and was seen with severe headaches in [place], [place] - was found to have a [...] a root canal and was sent to [facility] for MRI which was negative but non-contrasted. [...] history goes back to January 2016 in [facility] where she had persisting headaches and slurred speech followed by lower extremity weakness. This took a few months to resolve and she is back to her normal state of being but some point in time during her her next she was seen by Dr. Humera Hyde in [place] as well and was found to have [...] which included preparing to see the patient, ieuu-sj-rhcy patient care, completing clinical documentation, obtaining and/or reviewing separately obtained history, performing a medically appropriate examination, counseling and educating the pat ient/family/caregiver, ordering medications, tests, or procedures, independently interpreting results (not separately reported), and care coordination (not separately reported). Salvador Calix MD, CPE Hematology and Oncology Services Provided at: [place], [place] CC: MD Wilton Day, [address] [place] [address] Humaira Gaviria MD [address] [place] [id number] MD Cosmo Kingston MD Michael Blank, MD documented in this encounterCleveland Clinic [facility]10-03-2022 Instructions* Patient Instructions* Salvador Calix MD - 01/30/2022 12:[address] Hamlin's expertise and will prescribe Lovenox - patient prefers 40 mg (rather than rec 80mg) Will recheck antiphospholipid antibodies as ordered and every 6 months. RTC in 8 weeks - labs same day. documented in this encounterCleveland Clinic [facility] Hospital10-03-2022 History of Present illness Narrative* Salvador Calix MD - 01/30/2022 11:59 AM EDT Images from the original note were not included. NAME: Madhu Rendon CLINIC NO.: [id number] DATE OF SERVICE: January 30, 2022 Some [...] later in 2018. These were found in [place], [place]. I don't have access to these [...] a target-like rash shortly before presenting to [facility] in 2016 with headaches and [...] and at age 69. Both lived in [facility] but she was adopted. She was not able to see ID in October and will be seeing Dr. Baugh next week. Also will have her see Dr. Hamlin for her clotting disorder and make any other recommendations to optimize her treatment. Updated Visit, October 08, 2020: Telephone only Received call from pt stating she was seen in [facility] ER for numbness in her chest, throat, and extremities, and sob which has been worsening over the last week. We arranged a telephone visit for her domingoeview questions with me. Madhu Rendon is a 34 year old female seen for Hypercoagulable state and recent concerns and symptoms that required her to be seen at [facility] ER. She went to the ER with Gradual worsening of breathing after progressive tingling of fingers and legs. She currently remains very fatigued even though she is sleeping well. Now recalls that before her stroke she remembers having a bull's eye rash and was seen with severe headaches in [facility] was found to have a stroke [...] a root canal and was sent to [facility] for MRI which was negative but non-contrasted. [...] history goes back to January 2016 in [facility] where she had persisting headaches and slurred speech followed by lower extremity weakness. This took a few months to resolve and she is back to her normal state of being but some point in time during her her next she was seen by Dr. Humera Hyde in [place] as well and was found to have [...] which included preparing to see the patient, mhgx-tq-culv patient care, completing clinical documentation, obtaining and/or reviewing separately obtained history, performing a medically appropriate examination, counseling and educating the pat ient/family/caregiver, and ordering medications, tests, or procedures. Salvador Calix MD, [place], [place] CC: MD Chalino Dayy Spencer Herrmann, [address] [place] [address] Humaira Gaviria MD [address] [place] [id number] MD Cosmo Kingston MD Michael Blank, MD documented in this encounterCleveland Clinic [facility] Hospital10-03-2022 Nurse Note* Serina Dawson MA - 01/30/2022 11:55 AM EDT Patient states she may be diagnosed with gestational diabetes, she was from 215 to 52 a couple hours later after eating wheat cereal. She sees OB tomorrow. Serina Dawson MA documented in this encounterCleveland Clinic [facility] Hospital09-02-2022 Miscellaneous Notes* Telephone Encounter - Tonja Pope RN - 12/30/2021 10:15 AM EDT Call received from Madhu requesting refill of Lovenox 40 mg to be sent to [facility] in [place]. FELY: Please review and approve if you agree. Tonja Chery RN documented in this encounterCleveland Clinic [facility] Hospital06-13-2022 Miscellaneous Notes* Telephone Encounter - Meme Easton RN - 10/10/2021 12:15 PM EDT Received call from pt requesting refill of Lovenox 40 mg to be sent to [facility] in [place]. FELY: Pt also states she had one episode of blood in her stool which was dripping blood which concerned her. She is not ready to move to 80 mg of Lovenox at this time. Order pending. Please review and sign if agreeable. Meme Easton RN documented in this encounterCleveland Clinic [facility] Hospital05-10-2022 Miscellaneous Notes* Telephone Encounter - Salvador Calix [...] agreeable. Meme Easton RN documented in this encounterCleveland Clinic [facility] Hospital05-09-2022 Miscellaneous Notes* Telephone Encounter - Meme Easton [...] wanted her to check in with Dr Luan to see if any changes need to be made regarding her Lovenox. She is currently on 40 mg. FELY: Please advise. Meme Easton RN documented in this encounterCleveland Clinic Fair[facility] Hospital04-25-2022 Miscellaneous Notes* Telephone Encounter - Meme Easton [...] and would like to know if Dr Fely thinks this could be d/t her blood thinners or her condition. FELY: Thoughts? Meme Easton RN documented in this encounterCleveland Clinic Fairview Hospital04-22-2022 Hospital Discharge instructions Patient Education 08/19/2021 13:02:22 [...] including vitamins, herbs, eye drops, creams, and qthj-lxg-qmmrbpg medicines. ?Whether you are or may be [...] 02/11/2008 Document Revised: 08/05/2019 Document Reviewed: 02/18/2018 [employer] Patient Education 2020 [employer] 08/19/2021 13:02:21 Dysuria Dysuria Dysuria is [...] alcohol may irritate the prostate. Medicines Take luwn-uea-yinofjl and prescription medicines only as told by [...] 01/12/2005 Document Revised: 03/29/2018 Document Reviewed: 01/31/2018 [employer] Patient Education 2020 [employer] 08/19/2021 13:02:17 Budget-Friendly Healthy Eating Budget-Friendly Healthy [...] frozen fruits, and frozen vegetables. Avoid buying libei-ox-yew foods, such as pre-cut fruits and vegetables and pre-made salads. If possible, shop around to discover where you can find the best prices. Consider other retailers such as dollar stores, larger wholesale stores, local fruit and vegetable stands, and [employer] markets. Do not shop when you are [...] 12/18/2014 Document Revised: 04/17/2018 Document Reviewed: 04/17/2018 [employer] Patient Education 2020 [employer] 08/19/2021 13:02:15 BMI for Adults BMI for [...] height. This can be done either in Tristanian [place] or metric measurements. Note that charts are available to help you find your BMI quickly and easily without having to do these calculations yourself. To calculate your BMI in [place]istanian ([place] measurements, your health care provider will: [...] medical problems. BMI can be measured using Tristanian measurements or metric measurements. To interpret your [...] 12/26/2004 Document Revised: 03/29/2018 Document Reviewed: 02/27/2018 [employer] Patient Education 2020 [employer] 08/19/2021 13:02:11 Paresthesia Paresthesia Paresthesia is an [...] fried or sweet foods. General instructions Take dtnz-dno-peklbyk and prescription medicines only as told by [...] 04/06/2003 Document Revised: 05/12/2019 Document Reviewed: 04/25/2018 [employer] Patient Education 2020 [employer] Follow Up Care 08/19/2021 09:17:52 With:PRAVEEN RESENDEZ FAAFP, Evans Tony, CHRIS, PED Address: [place] [address]- When:[address] [facility] 04-22-2022 Evaluation + Plan note Future Scheduled Tests Radiology* XR Spine Lumbosacral Minimum 4 Views 08/19/21 [facility]04-07-2022 Miscellaneous Notes* Telephone Encounter - Roberta Haskins - 08/04/2021 3:36 PM EDT Patient is scheduled for 09/[address] Elliott. Roberta Haskisn * Telephone Encounter - Roberta Divine - 08/01/2021 1:05 PM EDT Sent Email to [facility] to refer patient back to Dr. Cosmo Elliott Dx: Primary hypercoagulable state (HCC) Roberta Haskins documented in this encounterCleveland Clinic Fairview Hospital04-04-2022 Nurse Note* Ebony Redding Ma - 08/01/2021 12:48 PM EDT UA ran as ordered. Ebony Redding Ma documented in this encounterCleveland Clinic Fairview Hospital03-28-2020 Evaluation + Plan note Future Appointments Appointment Date:07/25/2024 02:30:00 PM Scheduled Provider: [facility] App[facility] Type:CV EKG (FT) Appointment Date:07/25/2024 03:00:00 PM Scheduled Provider: [facility] Appoint[facility] Type:CV Holter/Event (FT) Appointment Date:09/09/2024 08:20:00 AM Scheduled Provider:Evans CASAS DO, FAAFP Location:[facility] Appointment Type: Open Future Scheduled Tests Laboratory* HgbA1c 08/05/24 * HgbA1c 11/04/24 Radiology* CT Soft Tissue Neck w/ Contrast 11/12/23 [facility] 03-28-2020 Evaluation + Plan note Future Appointments Appointment Date:07/25/2024 02:30:00 PM Scheduled Provider: Location[facility] Appointment Type:CV EKG (FT) Appointment Date:07/25/2024 03:00:00 PM Scheduled Provider: Location[facility] Appointment Type:CV Holter/Event (FT) Appointment Date:09/09/2024 08:20:00 AM Scheduled Provider:Evans CASAS DO, FAAFP Location:[facility] Appointment Type:FM Open Diagnostic Tests Pending * Hepatitis B Surface Antigen 07/09/24 * HCV Antibody RFX to Quant PCR 07/09/24 * Hep Be Ag 07/09/24 * HIV Screen 4th Generation wRfx 07/09/24 Future Scheduled Tests Laboratory* HgbA1c 08/05/24 * HgbA1c 11/04/24 Radiology* CT Soft Tissue Neck w/ Contrast 11/12/23 [facility] Evaluation + Plan note Future Appointments Appointment Date:11/08/2021 12:40:00 PM Scheduled Provider:Evans CASAS DO, FAAFP Location:[facility] Appointment Type:FM Open Future Scheduled Tests Radiology* XR Spine Lumbosacral Minimum 4 Views 08/19/21 [facility] Evaluation + Plan note Future Appointments Appointment Date:11/08/2021 12:40:00 PM Scheduled Provider:Evans CASAS DO, FAAFP Location:[facility] Appointment Type:FM Open Diagnostic Tests Pending * Urine Culture 08/19/21 Future Scheduled Tests Radiology* XR Spine Lumbosacral Minimum 4 Views [facility]19[facility] App[facility]ments Appointment Date:09/21/2022 10:00:00 AM Scheduled Provider:Evans CASAS DO, FAAFP Location:[facility] Future Appointments Appointment Date:10/20/2022 09:40:00 AM Scheduled Provider:Evans CASAS DO, FAAFP Location:[facility] Future Appointments Appointment Date:01/26/2023 10:40:00 AM Scheduled Provider:Evans CASAS DO, FAAFP Location:[facility] Appointment Type:[facility] Evaluation + Plan note Future Appointments Appointment Date:04/17/2023 02:20:00 PM Scheduled Provider:Evans CASAS DO, FAAFP Location:[facility] Appointment Type:FM Open Future Scheduled Tests Laboratory* HgbA1c 02/15/23 * Thyroid Stimulating Hormone 02/15/23 * Thyroid Stimulating Hormone 01/11/23 [facility] Evaluation + Plan note Future Appointments Appointment Date:07/24/2023 01:20:00 PM Scheduled Provider:Evans CASAS DO, FAAFP Location:[facility] Appointment Type:FM Open Future Scheduled Tests Laboratory* HgbA1c 02/15/23 * Thyroid Stimulating Hormone [facility] App[facility]ments Appointment Date:07/24/2023 01:20:00 PM Scheduled Provider:Evans CASAS DO, FAAFP Location:[facility] Appointment Type: Open [facility] evaluation + Plan note Future Appointments Appointment Date:12/03/2023 12:40:00 PM Scheduled Provider:Evans CASAS DO, FAAFP Location:[facility] Appointment Type:FM Open Future Scheduled Tests Laboratory* HgbA1c 08/03/23 [facility] evaluation + Plan note Future Appointments Appointment Date:12/03/2023 12:40:00 PM Scheduled Provider:Evans CASAS DO, FAAFP Location:[facility] Appointment Type:FM Open Future Scheduled Tests Laboratory* Sedimentation Rate Automated 11/09/23 * HgbA1c 08/03/23 * Amylase Level 11/09/23 * Cortisol 11/09/23 * C-Reactive Protein 11/09/23 * T3 Free 11/09/23 * Thyroid Stimulating Hormone 11/09/23 * Free T4 11/09/23 * Vitamin B12 Level 11/09/23 Radiology* MRI Brain w/o Contrast 11/09/23 * MRI Orbit Face Neck w/o contrast 11/09/23 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 PSG () Appointment Date:01/29/2024 01:20:00 PM Scheduled Provider:Evans CASAS DO, FAAFP Location:[facility] Appointment Type:FM Open Diagnostic Tests Pending * Cortisol 12/06/23 * T3 Free 12/06/23 Future Scheduled Tests Laboratory* HgbA1c 08/03/23 Radiology* CT Soft Tissue Neck w/ Contrast 11/12/23 [facility] evaluation + Plan note Future Appointments Appointment Date:05/16/2024 11:40:00 AM Scheduled Provider:Evans CASAS DO, FAAFP Location:[facility] Appointment Type:FM Open Future Scheduled Tests Laboratory* HgbA1c 02/05/24 * HgbA1c 05/07/24 * HgbA1c 08/05/24 * HgbA1c 11/04/24 * HgbA1c 08/03/23 * HIV Screen 4th Generation wRfx 02/05/24 * HIV Screen 4th Generation wRfx 02/05/24 * Lipid Panel 02/05/24 Radiology* CT Soft Tissue Neck w/ Contrast 11/12/23 [facility] evaluation + Plan note Future Appointments Appointment Date:05/16/2024 11:40:00 AM Scheduled Provider:Evans CASAS DO, FAAFP Location:[facility] Appointment Type:FM Open Future Scheduled Tests Laboratory* HgbA1c 05/07/24 * HgbA1c 08/05/24 * HgbA1c 11/04/24 Radiology* CT Soft Tissue Neck w/ Contrast 11/12/23 [facility] evaluation + Plan note Future Appointments Appointment Date:05/16/2024 11:40:00 AM Scheduled Provider:Evans CASAS DO, FAAFP Location:[facility] Appointment Type:FM Open Diagnostic Tests Pending * HIV Screen 4th Generation wRfx 02/23/24 Future Scheduled Tests Laboratory* HgbA1c 05/07/24 * HgbA1c 08/05/24 * HgbA1c 11/04/24 Radiology* CT Soft Tissue Neck w/ Contrast 11/12/23 [facility] evaluation + Plan note Future Appointments Appointment Date:05/16/2024 11:40:00 AM Scheduled Provider:Evans CASAS DO, FAAFP Location:[facility] Appointment Type:FM Open Future Scheduled Tests Laboratory* HgbA1c 08/05/24 * HgbA1c 11/04/24 Radiology* CT Soft Tissue Neck w/ Contrast 11/12/23 [facility] evaluation + Plan note Future Appointments Appointment Date:05/16/2024 11:40:00 AM Scheduled Provider:Evans CASAS DO, FAAFP Location:[facility] Appointment Type:FM Open Diagnostic Tests Pending * Urine Culture 03/01/24 Future Scheduled Tests Laboratory* HgbA1c 08/05/24 * HgbA1c 11/04/24 Radiology* CT Soft Tissue Neck w/ Contrast 11/12/23 [facility] evaluation + Plan note Future Appointments Appointment Date:07/07/2024 02:20:00 PM Scheduled Provider:Evans CASAS DO, FAAFP Location:[facility] Appointment Type:FM Open Future Scheduled Tests Laboratory* HgbA1c 08/05/24 * HgbA1c 11/04/24 Radiology* CT Soft Tissue Neck w/ Contrast 11/12/23 [facility] evaluation + Plan note Future Appointments Appointment Date:09/09/2024 08:20:00 AM Scheduled Provider:Evans CASAS DO, FAAFP Location:[facility] Appointment Type:FM Open Future Scheduled Tests Laboratory* HgbA1c 08/05/24 * HgbA1c 11/04/24 Radiology* CT Soft Tissue Neck w/ Contrast 11/12/23 [facility] evaluation note* Diagnosis Infective urethritis- Primary Urethritis, unspecified [facility] Diagnosis Primary hypercoagulable state (HCC) Primary hypercoagulable state CVA, old, speech/language deficit Speech and language deficit, unspecified, 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 Hyposmolality and/or hyponatremia [facility] [place] [facility]* Diagnosis Primary hypercoagulable state (HCC) Primary hypercoagulable state CVA, old, speech/language deficit Speech and language deficit, unspecified, 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 Hyposmolality and/or hyponatremia [facility] [place] [facility]* Diagnosis Primary hypercoagulable state (HCC)- Primary Primary hypercoagulable state CVA, old, speech/language deficit Speech and language deficit, unspecified, late effect of cerebrovascular disease Antiphospholipid antibody syndrome (HCC) Primary hypercoagulable state Anemia, unspecified type [facility] [place] [facility]* Diagnosis Iron deficiency anemia secondary to blood loss (chronic) Iron deficiency anemia of Anemia of mother, complicating , childbirth, or the puerperium, unspecified as to episode of care documented 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 Iron deficiency anemia of Anemia of mother, complicating , childbirth, or the puerperium, unspecified as to episode of care [facility] [place] [facility]* Diagnosis Primary hypercoagulable state (HCC) Primary hypercoagulable state CVA, old, speech/language deficit Speech and language deficit, unspecified, 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 Hyposmolality and/or hyponatremia documented [facility] [place] [facility]* Diagnosis Primary hypercoagulable state (HCC)- Primary Primary hypercoagulable state 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, old, speech/language deficit Speech and language deficit, unspecified, late effect of cerebrovascular disease [facility] Diagnosis Primary hypercoagulable state (HCC) Primary [...] vitamin D deficiency [facility] Diagnosis Primary hypercoagulable state (HCC)- Primary Primary hypercoagulable state Iron deficiency anemia secondary to blood loss (chronic) Vitamin D deficiency Unspecified vitamin D deficiency CVA, old, speech/language deficit Speech and language deficit, unspecified, late effect of cerebrovascular disease Antiphospholipid antibody syndrome (HCC) Primary hypercoagulable state [facility]* Diagnosis Iron deficiency anemia secondary to [...] blood loss (chronic) [facility] 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 Vitamin D deficiency Unspecified vitamin D deficiency Malaise and fatigue Other malaise and fatigue [facility] [place] [facility]* Diagnosis Primary hypercoagulable state (HCC) Primary hypercoagulable state CVA, old, speech/language deficit Speech and language deficit, unspecified, 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 Hyposmolality and/or hyponatremia documented [facility] [place] [facility]* Diagnosis Missed menses , unspecified gestational age Encounter for supervision of normal first in first trimester Hypothyroidism (acquired) ([facility]/HCC) Unspecified hypothyroidism Low vitamin D level documented [facility] encounter [facility]* Diagnosis 14 weeks gestation of Second trimester state, incidental Confirm viability with history of miscarriage, ultrasound Encounter for routine screening for malformation using ultrasonics [facility] noteNo assessment information [facility] Phone: Evaluation note* Diagnosis Primary hypercoagulable state (HCC)- Primary Primary hypercoagulable state CVA, old, speech/language deficit Speech and language deficit, unspecified, 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) Vitamin D deficiency Unspecified vitamin D deficiency Antiphospholipid antibody syndrome (HCC) Primary hypercoagulable state [facility] [place] [facility]* Diagnosis Follow-up visit after miscarriage Abnormal TSH History of thyroid disease documented in this encounter [facility]* Diagnosis Vaginal bleeding Other specified noninflammatory disorder of vagina Dizziness Dizziness and giddiness Abnormal TSH Vaginal discharge Leukorrhea, not specified as infective Pelvic pain in female Unspecified symptom associated with female genital organs documented in this encounter [facility]* Diagnosis Irregular menstrual cycle documented in this encounter [facility]* Diagnosis Primary hypercoagulable state (HCC) Primary hypercoagulable state CVA, old, speech/language deficit Speech and language deficit, unspecified, 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 Hyposmolality and/or hyponatremia [facility]* Diagnosis Antiphospholipid antibody positive- Primary Other and unspecified nonspecific immunological findings Iron deficiency anemia secondary to blood loss (chronic) Malaise and fatigue Other malaise and fatigue Vitamin D deficiency Unspecified vitamin D deficiency [facility]* Diagnosis Amenorrhea Absence of menstruation Missed menses , unspecified gestational age Encounter for supervision of normal first in first trimester Thyroid disease ([facility]/HCC) Unspecified disorder of thyroid documented in this encounter [facility]* Diagnosis Gestational diabetes mellitus (GDM), antepartum, gestational diabetes method of control unspecified- Primary [facility] Diagnosis Primary hypercoagulable state (HCC) Primary hypercoagulable state CVA, old, speech/language deficit Speech and language deficit, unspecified, 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 Hyposmolality and/or hyponatremia [facility]* Diagnosis Primary hypercoagulable state (HCC)- Primary Primary hypercoagulable state CVA, old, speech/language deficit Speech and language deficit, unspecified, 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 Hyposmolality and/or hyponatremia Personal history of TIA (transient ischemic attack) Transient ischemic attack (TIA), and cerebral infarction without residual deficits [facility]* Diagnosis Second trimester (HHS-HCC) state, incidental 13 weeks gestation of ([facility]) Thyroid disease Unspecified disorder of thyroid Multigravida of advanced maternal age in second trimester ([facility]) Gestational diabetes mellitus (GDM), antepartum, gestational diabetes method of control unspecified ([facility]) Elevated glucose tolerance test Impaired glucose tolerance test documented in this encounter [facility]* Diagnosis Gestational diabetes mellitus (GDM), antepartum, gestational diabetes method of control unspecified- Primary [facility]* Diagnosis Second trimester (HHS-HCC) state, incidental 16 weeks gestation of ([facility]) Screening, , for anatomic survey ([facility]) Encounter for anatomic survey Vaginal discharge Leukorrhea, not specified as infective Sinus headache Headache [facility]* Diagnosis Insulin controlled gestational diabetes mellitus (GDM) in second trimester- Primary [facility] Diagnosis 19 weeks gestation of (HHS-HCC) Second trimester (HHS-HCC) state, incidental Thyroid disease Unspecified disorder of thyroid Multigravida of advanced maternal age in second trimester (HHS-HCC) Gestational diabetes mellitus (GDM), antepartum, gestational diabetes method of control unspecified (HHS-HCC) [facility] Narrative No data available for this section [facility] Discharge instructions No data available for this section [facility] filedocumented in [facility] filedocumented in this [facility]Not on filedocumented in this encounter [facility]ructionsNot on filedocumented in this encounter [facility]InstructionsNot on filedocumented in this encounter [facility] No data available for this section [facility] , pt reported hx of nasal polyps and deviated septum but never had surgery done Referred by: Lourdes Urr[facility] Summary Purpose Family History No [...] for this section No Family History Records Found No data available [...] for this section No Family History Records Found No data available for this section No data available for this section No Family History Records Found No data available [...] FoundNo Advanced Directives Records FoundNo AdvancedDirectives Records FoundNo Advanced Directives Records FoundNo Advanced [...] Advanced Directives Records FoundNo Advanced Directives Records Found Medications Administered Section Inactive Administered Medications - up to 3 most recent administrations Medication Order MAR Action Action Date Dose Rate Site iron sucrose 300 mg in NaCl 0.9% 250 mL (VENOFER) 300 mg, INTRAVENOUS, at 166.67 mL/hr, Administer over 90 Minutes, ONCE, 1 dose, On 04/05/22 at 1400, Please conduct a 30 minute [...] over 90 Minutes, ONCE, 1 dose, On Christie 04/20/22 at 1400, Please conduct a 30 minute post dose observation. New Bag/Syringe/Bottle 04/20/2022 2:01 PM EST 300 mg 166.67 mL/hr Additional Source Comments INFORMATION SOURCE (unrecogn ized section and content) DATE CREATED AUTHOR 10/22/2017 [facility] DATE CREATED AUTHOR AUTHOR'S ORGANIZ ATION 11/14/2017 [employer] DATE CREATED AUTHOR AUTHOR'S ORGANIZ ATION 06/18/2018 [facility] DATE CREATED AUTHOR AUTHOR'S ORGANIZ ATION 12/30/2021 [facility] DATE CREATED AUTHOR AUTHOR'S ORGANIZ ATION 06/09/2022 [facility] DATE CREATED AUTHOR [facility]S [facility] AT[facility] DATE CREATED AUTHOR AUTHOR'S ORGANIZ ATION [facility]/03/2023 [facility] DATE CREATED AUTHOR AUTHOR'S ORGANIZ ATION 12/09/2023 [facility] DATE CREATED AUTHOR AUTHOR'S ORGANIZ ATION 12/10/2023 [facility] DATE CREATED AUTHOR AUTHOR'S ORGANIZ ATION 01/27/2024 [facility] DATE CREATED AUTHOR AUTHOR'S ORGANIZ ATION 02/24/2024 [facility] DATE CREATED AUTHOR AUTHOR'S ORGANIZ ATION 02/26/2024 [facility] DATE CREATED AUTHOR AUTHOR'S ORGANIZ ATION 02/28/2024 [facility] DATE CREATED AUTHOR AUTHOR'S ORGANIZ ATION 03/02/2024 [facility] DATE CREATED AUTHOR AUTHOR'S ORGANIZ ATION 03/03/2024 [facility] DATE CREATED AUTHOR AUTHOR'S ORGANIZ ATION 05/15/2024 [facility] DATE CREATED AUTHOR AUTHOR'S ORGANIZ ATION 05/17/2024 [facility] DATE CREATED AUTHOR AUTHOR'S ORGANIZ ATION 05/18/2024 [facility] DATE CREATED AUTHOR AUTHOR'S ORGANIZ ATION 05/19/2024 [facility] DATE CREATED AUTHOR AUTHOR'S ORGANIZ ATION 06/11/2024 [facility] DATE CREATED AUTHOR AUTHOR'S ORGANIZ ATION 06/17/2024 [facility] DATE CREATED AUTHOR AUTHOR'S ORGANIZ ATION 07/09/2024 [facility] DATE CREATED AUTHOR AUTHOR'S ORGANIZ ATION 07/12/2024 [facility] DATE CREATED AUTHOR AUTHOR'S ORGANIZ ATION 07/15/2024 [facility] DATE CREATED AUTHOR AUTHOR'S ORGANIZ ATION 08/24/2024 [facility] DATE CREATED AUTHOR AUTHOR'S ORGANIZ ATION 08/26/2024 [facility] DATE CREATED AUTHOR AUTHOR'S ORGANIZ ATION 09/01/2024 [facility] DATE CREATED AUTHOR AUTHOR'S ORGANIZ ATION 09/08/2024 [facility] DATE CREATED AUTHOR AUTHOR'S ORGANIZ ATION 09/11/2024 [facility] DATE CREATED AUTHOR AUTHOR'S ORGANIZ ATION 11/09/[address] [facility] DATE CREATED AUTHOR AUTHOR'S ORGANIZ ATION 11/21/2024 [facility] DATE CREATED AUTHOR AUTHOR'S ORGANIZ ATION 12/06/2024 [facility] DATE CREATED AUTHOR AUTHOR'S ORGANIZ ATION 12/09/2024 [facility] DATE CREATED AUTHOR AUTHOR'S ORGANIZ ATION 12/10/2024 [facility] Source Comments (unrecognize d section and content) In the event this informatio n is protected by the Federal Confidentiality of Alcohol and Drug Abuse Patient Records regulations: The Federal rules restrict any use of the information to criminally investigate or prosecute any alcohol or drug abuse patient.[facility] HospitalIn the event this information is protected by the Federal Confidentiality of Alcohol and Drug Abuse Patient Records regulations: The Federal rules restrict any use of the information to criminally investigate or prosecute any alcohol or drug abuse patient.[facility] HospitalIn the event this information is protected by the Federal Confidentiality of Alcohol and Drug Abuse Patient Records regulations: The Federal rules restrict any use of the information to criminally investigate or prosecute any alcohol or drug abuse patient.[facility] HospitalIn the event this information is protected by the Federal Confidentiality of Alcohol and Drug Abuse Patient Records regulations: The Federal rules restrict any use of the information to criminally investigate or prosecute any alcohol or drug abuse patient.[facility] HospitalIn the event this information is protected by the Federal Confidentiality of Alcohol and Drug Abuse Patient Records regulations: The Federal rules restrict any use of the information to criminally investigate or prosecute any alcohol or drug abuse patient.[facility] HospitalIn the event this information is protected by the Federal Confidentiality of Alcohol and Drug Abuse Patient Records regulations: The Federal rules restrict any use of the information to criminally investigate or prosecute any alcohol or drug abuse patient.[facility] HospitalIn the event this information is protected by the Federal Confidentiality of Alcohol and Drug Abuse Patient Records regulations: The Federal rules restrict any use of the information to criminally investigate or prosecute any alcohol or drug abuse patient.[facility] HospitalIn the event this information is protected by the Federal Confidentiality of Alcohol and Drug Abuse Patient Records regulations: The Federal rules restrict any use of the information to criminally investigate or prosecute any alcohol or drug abuse patient.[facility] HospitalIn the event this information is protected by the Federal Confidentiality of Alcohol and Drug Abuse Patient Records regulations: The Federal rules restrict any use of the information to criminally investigate or prosecute any alcohol or drug abuse patient.[facility] HospitalIn the event this information is protected by the Federal Confidentiality of Alcohol and Drug Abuse Patient Records regulations: The Federal rules restrict any use of the information to criminally investigate or prosecute any alcohol or drug abuse patient.[facility] HospitalIn the event this information is protected by the Federal Confidentiality of Alcohol and Drug Abuse Patient Records regulations: The Federal rules restrict any use of the information to criminally investigate or prosecute any alcohol or drug abuse patient.[facility] HospitalIn the event this information is protected by the Federal Confidentiality of Alcohol and Drug Abuse Patient Records regulations: The Federal rules restrict any use of the information to criminally investigate or prosecute any alcohol or drug abuse patient.[facility] HospitalIn the event this information is protected by the Federal Confidentiality of Alcohol and Drug Abuse Patient Records regulations: The Federal rules restrict any use of the information to criminally investigate or prosecute any alcohol or drug abuse patient.[facility] HospitalIn the event this information is protected by the Federal Confidentiality of Alcohol and Drug Abuse Patient Records regulations: The Federal rules restrict any use of the information to criminally investigate or prosecute any alcohol or drug abuse patient.[facility] HospitalIn the event this information is protected by the Federal Confidentiality of Alcohol and Drug Abuse Patient Records regulations: The Federal rules restrict any use of the information to criminally investigate or prosecute any alcohol or drug abuse patient.[facility] HospitalIn the event this information is protected by the Federal Confidentiality of Alcohol and Drug Abuse Patient Records regulations: The Federal rules restrict any use of the information to criminally investigate or prosecute any alcohol or drug abuse patient.[facility] HospitalIn the event this information is protected by the Federal Confidentiality of Alcohol and Drug Abuse Patient Records regulations: The Federal rules restrict any use of the information to criminally investigate or prosecute any alcohol or drug abuse patient.[facility] HospitalIn the event this information is protected by the Federal Confidentiality of Alcohol and Drug Abuse Patient Records regulations: The Federal rules restrict any use of the information to criminally investigate or prosecute any alcohol or drug abuse patient.[facility] HospitalIn the event this information is protected by the Federal Confidentiality of Alcohol and Drug Abuse Patient Records regulations: The Federal rules restrict any use of the information to criminally investigate or prosecute any alcohol or drug abuse patient.[facility] HospitalIn the event this information is protected by the Federal Confidentiality of Alcohol and Drug Abuse Patient Records regulations: The Federal rules restrict any use of the information to criminally investigate or prosecute any alcohol or drug abuse patient.[facility] HospitalIn the event this information is protected by the Federal Confidentiality of Alcohol and Drug Abuse Patient Records regulations: The Federal rules restrict any use of the information to criminally investigate or prosecute any alcohol or drug abuse patient.[facility] HospitalIn the event this information is protected by the Federal Confidentiality of Alcohol and Drug Abuse Patient Records regulations: The Federal rules restrict any use of the information to criminally investigate or prosecute any alcohol or drug abuse patient.[facility] HospitalIn the event this information is protected by the Federal Confidentiality of Alcohol and Drug Abuse Patient Records regulations: The Federal rules restrict any use of the information to criminally investigate or prosecute any alcohol or drug abuse patient.[facility] HospitalIn the event this information is protected by the Federal Confidentiality of Alcohol and Drug Abuse Patient Records regulations: The Federal rules restrict any use of the information to criminally investigate or prosecute any alcohol or drug abuse patient.[facility] HospitalIn the event this information is protected by the Federal Confidentiality of Alcohol and Drug Abuse Patient Records regulations: The Federal rules restrict any use of the information to criminally investigate or prosecute any alcohol or drug abuse patient.[facility] HospitalIn the event this information is protected by the Federal Confidentiality of Alcohol and Drug Abuse Patient Records regulations: The Federal rules restrict any use of the information to criminally investigate or prosecute any alcohol or drug abuse patient.[facility] HospitalIn the event this information is protected by the Federal Confidentiality of Alcohol and Drug Abuse Patient Records regulations: The Federal rules restrict any use of the information to criminally investigate or prosecute any alcohol or drug abuse patient.[facility] HospitalIn the event this information is protected by the Federal Confidentiality of Alcohol and Drug Abuse Patient Records regulations: The Federal rules restrict any use of the information to criminally investigate or prosecute any alcohol or drug abuse patient.[facility] HospitalIn the event this information is protected by the Federal Confidentiality of Alcohol and Drug Abuse Patient Records regulations: The Federal rules restrict any use of the information to criminally investigate or prosecute any alcohol or drug abuse patient.[facility] HospitalIn the event this information is protected by the Federal Confidentiality of Alcohol and Drug Abuse Patient Records regulations: The Federal rules restrict any use of the information to criminally investigate or prosecute any alcohol or drug abuse patient.[facility] HospitalIn the event this information is protected by the Federal Confidentiality of Alcohol and Drug Abuse Patient Records regulations: The Federal rules restrict any use of the information to criminally investigate or prosecute any alcohol or drug abuse patient.[facility] HospitalIn the event this information is protected by the Federal Confidentiality of Alcohol and Drug Abuse Patient Records regulations: The Federal rules restrict any use of the information to criminally investigate or prosecute any alcohol or drug abuse patient.[facility] HospitalIn the event this information is protected by the Federal Confidentiality of Alcohol and Drug Abuse Patient Records regulations: The Federal rules restrict any use of the information to criminally investigate or prosecute any alcohol or drug abuse patient.[facility] HospitalIn the event this information is protected by the Federal Confidentiality of Alcohol and Drug Abuse Patient Records regulations: The Federal rules restrict any use of the information to criminally investigate or prosecute any alcohol or drug abuse patient.[facility] HospitalIn the event this information is protected by the Federal Confidentiality of Alcohol and Drug Abuse Patient Records regulations: The Federal rules restrict any use of the information to criminally investigate or prosecute any alcohol or drug abuse patient.[facility] HospitalIn the event this information is protected by the Federal Confidentiality of Alcohol and Drug Abuse Patient Records regulations: The Federal rules restrict any use of the information to criminally investigate or prosecute any alcohol or drug abuse patient.[facility] HospitalIn the event this information is protected by the Federal Confidentiality of Alcohol and Drug Abuse Patient Records regulations: The Federal rules restrict any use of the information to criminally investigate or prosecute any alcohol or drug abuse patient.[facility] HospitalIn the event this information is protected by the Federal Confidentiality of Alcohol and Drug Abuse Patient Records regulations: The Federal rules restrict any use of the information to criminally investigate or prosecute any alcohol or drug abuse patient.[facility] HospitalIn the event this information is protected by the Federal Confidentiality of Alcohol and Drug Abuse Patient Records regulations: The Federal rules restrict any use of the information to criminally investigate or prosecute any alcohol or drug abuse patient.[facility] HospitalIn the event this information is protected by the Federal Confidentiality of Alcohol and Drug Abuse Patient Records regulations: The Federal rules restrict any use of the information to criminally investigate or prosecute any alcohol or drug abuse patient.[facility] HospitalIn the event this information is protected by the Federal Confidentiality of Alcohol and Drug Abuse Patient Records regulations: The Federal rules restrict any use of the information to criminally investigate or prosecute any alcohol or drug abuse patient.[facility] HospitalIn the event this information is protected by the Federal Confidentiality of Alcohol and Drug Abuse Patient Records regulations: The Federal rules restrict any use of the information to criminally investigate or prosecute any alcohol or drug abuse patient.[facility] HospitalIn the event this information is protected by the Federal Confidentiality of Alcohol and Drug Abuse Patient Records regulations: The Federal rules restrict any use of the information to criminally investigate or prosecute any alcohol or drug abuse patient.[facility] HospitalIn the event this information is protected by the Federal Confidentiality of Alcohol and Drug Abuse Patient Records regulations: The Federal rules restrict any use of the information to criminally investigate or prosecute any alcohol or drug abuse patient.[facility] HospitalIn the event this information is protected by the Federal Confidentiality of Alcohol and Drug Abuse Patient Records regulations: The Federal rules restrict any use of the information to criminally investigate or prosecute any alcohol or drug abuse patient.[facility] HospitalIn the event this information is protected by the Federal Confidentiality of Alcohol and Drug Abuse Patient Records regulations: The Federal rules restrict any use of the information to criminally investigate or prosecute any alcohol or drug abuse patient.[facility] HospitalIn the event this information is protected by the Federal Confidentiality of Alcohol and Drug Abuse Patient Records regulations: The Federal rules restrict any use of the information to criminally investigate or prosecute any alcohol or drug abuse patient.[facility] HospitalIn the event this information is protected by the Federal Confidentiality of Alcohol and Drug Abuse Patient Records regulations: The Federal rules restrict any use of the information to criminally investigate or prosecute any alcohol or drug abuse patient.[facility] HospitalIn the event this information is protected by the Federal Confidentiality of Alcohol and Drug Abuse Patient Records regulations: The Federal rules restrict any use of the information to criminally investigate or prosecute any alcohol or drug abuse patient.[facility] HospitalIn the event this information is protected by the Federal Confidentiality of Alcohol and Drug Abuse Patient Records regulations: The Federal rules restrict any use of the information to criminally investigate or prosecute any alcohol or drug abuse patient.[facility] HospitalIn the event this information is protected by the Federal Confidentiality of Alcohol and Drug Abuse Patient Records regulations: The Federal rules restrict any use of the information to criminally investigate or prosecute any alcohol or drug abuse patient.[facility] HospitalIn the event this information is protected by the Federal Confidentiality of Alcohol and Drug Abuse Patient Records regulations: The Federal rules restrict any use of the information to criminally investigate or prosecute any alcohol or drug abuse patient.[facility] HospitalIn the event this information is protected by the Federal Confidentiality of Alcohol and Drug Abuse Patient Records regulations: The Federal rules restrict any use of the information to criminally investigate or prosecute any alcohol or drug abuse patient.[facility] HospitalIn the event this information is protected by the Federal Confidentiality of Alcohol and Drug Abuse Patient Records regulations: The Federal rules restrict any use of the information to criminally investigate or prosecute any alcohol or drug abuse patient.[facility] Care Teams (unrecognized sec tion and content) Rn Geriatric Relationship Specialty Start Date End Date Humaira Gaviria MD [address] [place] [address] PCP - General Internal Medicine 07/05/18 Jonny Wilcox MD [address] [place] [address] Primary Staff Physician Cardiology 07/16/18 Rn Geriatric Relationship Specialty Start Date End Date Humaira Gaviria MD [address] [place] [address] PCP - General Internal Medicine 07/05/18 Jonny Wilcox MD [address] [place] [address] Primary Staff Physician Cardiology 07/16/18 Rn Geriatric Relationship Specialty Start Date End Date Humaira Gaviria MD [address] [place] [address] PCP - General Internal Medicine 07/05/18 Jonny Wilcox MD [address] [place] [address] Primary Staff Physician Cardiology 07/16/18 Rn Geriatric Relationship Specialty Start Date End Date Humaira Gaviria MD [address] [place] [address] PCP - General Internal Medicine 07/05/18 Jonny Wilcox MD [address] [place] [address] Primary Staff Physician Cardiology 07/16/18 Rn Geriatric Relationship Specialty Start Date End Date Humaira Gaviria MD [address] [place] [facility] [place] [address] PCP - General Internal Medicine 07/05/18 Jonny Wilcox MD [address] [place] [address] Primary Staff Physician Cardiology 07/16/18 [place] [address] [place] [address] Physician Hematology/Oncology 09/14/21 Davida Restrepo RN [address] [place] [address] Specialty Web Production Artist Hematology/Oncology 09/14/21 Rn Geriatric Relationship Specialty Start Date [place] [address] PCP - General Family Medicine 10/04/20 Rn Geriatric Relationship Specialty Start Date End Date Humaira Gaviria MD [address] [place] [facility] [place] [address] PCP - General Internal Medicine 07/05/18 Jonny Wilcox MD [address] [place] [address] Primary Staff Physician Cardiology 07/16/18 [place] [address] [place] [address] Physician Hematology/Oncology 09/14/21 Davida Restrepo RN [address] [place] [address] Specialty Web Production Artist Hematology/Oncology 09/14/21 Rn Geriatric Relationship Specialty Start Date End Date Evans Casas, DO [address] [place] [address] PCP - General Family Medicine 01/30/22 Jonny Wilcox MD [address] [place] [address] Primary Staff Physician Cardiology 07/16/18 [place] [address] [place] [address] Physician Hematology/Oncology 09/14/21 Davida Restrepo, RN [address] [place] [address] Specialty Web Production Artist Hematology/Oncology 09/14/21 Rn Geriatric Relationship Specialty Start Date End Date Evans Casas, DO [address] [place] [address] PCP - General Family Medicine 01/30/22 Jonny Wilcox MD [address] [place] [address] Primary Staff Physician Cardiology 07/16/18 [place] [address] [place] [address] Physician Hematology/Oncology 09/14/21 Davida Restrepo, RN [address] [place] [address] Specialty Web Production Artist Hematology/Oncology 09/14/21 Rn Geriatric Relationship Specialty Start Date End Date Evans Casas DO [address] [place] [address] PCP - General Family Medicine 01/30/22 Jonny Wilcox MD [address] [place] [address] Primary Staff Physician Cardiology 07/16/18 [place] [address] [place] [address] Physician Hematology/Oncology 09/14/21 Davida Restrepo, RN [address] [place] [address] Specialty Web Production Artist Hematology/Oncology 09/14/21 Rn Geriatric Relationship Specialty Start Date End Date Evans Casas, DO [address] [facility] [place] [address] PCP - General Family Medicine 01/30/22 Jonny Wilcox MD [address] [place] [address] Primary Staff Physician Cardiology 07/16/18 [place] [address] [place] [address] Physician Hematology/Oncology 09/14/21 Davida Restrepo, RN [address] [place] [address] Specialty Web Production Artist Hematology/Oncology 09/14/21 Rn Geriatric Relationship Specialty Start Date End Date Evans Casas, DO [address] [place] [address] PCP - General Family Medicine 01/30/22 Jonny Wilcox MD [address] [place] [address] Primary Staff Physician Cardiology 07/16/18 [place] [address] [place] [address] Physician Hematology/Oncology 09/14/21 Davida Restrepo, RN [address] [place] [address] Specialty Web Production Artist Hematology/Oncology 09/14/21 Rn Geriatric Relationship Specialty Start Date End Date Evans Casas DO [address] [place] [address] PCP - General Family Medicine 01/30/22 Jonny Wilcox MD [address] [place] [address] Primary Staff Physician Cardiology 07/16/18 [place] [address] [place] [address] Physician Hematology/Oncology 09/14/21 Davida Restrepo RN [address] [place] [address] Specialty Web Production Artist Hematology/Oncology 09/14/21 Rn Geriatric Relationship Specialty Start Date End Date Evans Casas DO [address] [place] [address] PCP - General Family Medicine 01/30/22 Jonny Wilcox MD [address] [place] [address] Primary Staff Physician Cardiology 07/16/18 [place] [address] [place] [address] Physician Hematology/Oncology 09/14/21 Davida Restrepo, MARSHA [address] [place] [address] Specialty Web Production Artist Hematology/Oncology 09/14/21 Rn Geriatric Relationship Specialty Start Date End Date Evans Casas DO [address] [place] [address] PCP - General Family Medicine 01/30/22 Jonny Wilcox MD [address] [place] [address] Primary Staff Physician Cardiology 07/16/18 [place] [address] [place] [address] Physician Hematology/Oncology 09/14/21 Davida Restrepo, RN [address] [place] [address] Specialty Web Production Artist Hematology/Oncology 09/14/21 Rn Geriatric Relationship Specialty Start Date End Date Evans Casas DO [address] [facility] [place] [place] [address] PCP - General Family Medicine 01/30/22 Jonny Wilcox MD [address] [place] [address] Primary Staff Physician Cardiology 07/16/18 [place] [address] [place] [address] Physician Hematology/Oncology 09/14/21 Davida Restrepo, RN [address] [place] [address] Specialty Web Production Artist Hematology/Oncology 09/14/21 Rn Geriatric Relationship Specialty Start Date End Date Evans Casas DO [address] [facility] [address] [facility] [place] [address] PCP - General Family Medicine 01/30/22 Jonny Wilcox MD [address] [place] [address] Primary Staff Physician Cardiology 07/16/18 [place] [address] [place] [address] Physician Hematology/Oncology 09/14/21 Davida Restrepo, RN [address] [facility] [place] [address] Specialty Web Production Artist Hematology/Oncology 09/14/21 Rn Geriatric Relationship Specialty Start Date End Date Evans Casas DO [address] [place] [address] PCP - General Family Medicine 01/30/22 Jonny Wilcox MD [address] [place] [address] Primary Staff Physician Cardiology 07/16/18 [place] [address] [place] [address] Physician Hematology/Oncology 09/14/21 Davida Restrepo, MARSHA [address] [place] [address] Specialty Web Production Artist Hematology/Oncology 09/14/21 Rn Geriatric Relationship Specialty Start Date End Date Evans Casas DO [address] [place] [address] PCP - General Family Medicine 01/30/22 Jonny Wilcox MD [address] [place] [address] Primary Staff Physician Cardiology 07/16/18 [place] [address] [place] [address] Physician Hematology/Oncology 09/14/21 Davida Restrepo, RN [address] [place] [address] Specialty Web Production Artist Hematology/Oncology 09/14/21 Rn Geriatric Relationship Specialty Start Date End Date Evans Casas DO [address] [place] [place] [address] PCP - General Family Medicine 01/30/22 Jonny Wilcox MD [address] [place] [address] Primary Staff Physician Cardiology 07/16/18 [place] [address] [place] [address] Physician Hematology/Oncology 09/14/21 Davida Restrepo RN [address] [place] [address] Specialty Web Production Artist Hematology/Oncology 09/14/21 Rn Geriatric Relationship Specialty Start Date End Date Evans Casas DO [address] [facility] [address] PCP - General Family Medicine 01/30/22 Jonny Wilcox MD [address] [place] [address] Primary Staff Physician Cardiology 07/16/18 [place] [address] [place] [address] Physician Hematology/Oncology 09/14/21 Davida Restrepo RN [address] [place] [address] Specialty Web Production Artist Hematology/Oncology 09/14/21 Rn Geriatric Relationship Specialty Start Date End Date Kaple, Evans A, DO [address] [facility] [place] [address] PCP - General Family Medicine 01/30/22 Jonny Wilcox MD [address] [place] [address] Primary Staff Physician Cardiology 07/16/18 [place] [address] [place] [address] Physician Hematology/Oncology 09/14/21 Davida Restrepo, RN [address] [place] [address] Specialty Web Production Artist Hematology/Oncology 09/14/21 Rn Geriatric Relationship Specialty Start Date End Date Evans Casas DO [address] [facility] [place] [address] PCP - General Family Medicine 01/30/22 Jonny Wilcox MD [address] [place] [address] Primary Staff Physician Cardiology 07/16/18 [place] [address] [place] [address] Physician Hematology/Oncology 09/14/21 Davida Restrepo, RN [address] [place] [address] Specialty Web Production Artist Hematology/Oncology 09/14/21 Rn Geriatric Relationship Specialty Start Date End Date Evans Casas DO [address] [facility] [place] [address] PCP - General Family Medicine 01/30/22 Jonny Wilcox MD [address] [place] [address] Primary Staff Physician Cardiology 07/16/18 [place] [address] [place] [address] Physician Hematology/Oncology 09/14/21 Davida Restrepo RN [address] [place] [address] Specialty Web Production Artist Hematology/Oncology 09/14/21 Rn Geriatric Relationship Specialty Start Date End Date Evans Casas DO [address] [facility] [address] [place] [address] PCP - General Family Medicine 01/30/22 Jonny Wilcox MD [address] [place] [address] Primary Staff Physician Cardiology 07/16/18 [place] [address] [place] [address] Physician Hematology/Oncology 09/14/21 Davida Restrepo RN [address] [facility] [place] [address] Specialty Web Production Artist Hematology/Oncology 09/14/21 Rn Geriatric Relationship Specialty Start Date End Date Evans Casas DO [address] [place] [place] [address] PCP - General Family Medicine 01/30/22 Jonny Wilcox MD [address] [place] [address] Primary Staff Physician Cardiology 07/16/18 [place] [address] [place] [address] Physician Hematology/Oncology 09/14/21 Davida Restrepo, RN [address] [place] [address] Specialty Web Production Artist Hematology/Oncology 09/14/21 Rn Geriatric Relationship Specialty Start Date End Date Evans Casas DO [address] [facility] [place] [address] PCP - General Family Medicine 01/30/22 Jonny Wilcox MD [address] [place] [address] Primary Staff Physician Cardiology 07/16/18 [place] [address] [place] [address] Physician Hematology/Oncology 09/14/21 Davida Restrepo, RN [address] [place] [address] Specialty Web Production Artist Hematology/Oncology 09/14/21 Rn Geriatric Relationship Specialty Start Date End Date Evans Casas DO [address] [facility] [place] [address] PCP - General Family Medicine 01/30/22 Jonny Wilcox MD [address] [place] [address] Primary Staff Physician Cardiology 07/16/18 [place] [address] [place] [address] Physician Hematology/Oncology 09/14/21 Davida Restrepo RN [address] [place] [address] Specialty Web Production Artist Hematology/Oncology 09/14/21 Rn Geriatric Relationship Specialty Start Date End Date Evans Casas DO [address] [place] [address] PCP - General Family Medicine 01/30/22 Jonny Wilcox MD [address] [place] [address] Primary Staff Physician Cardiology 07/16/18 [place] [address] [place] [address] Physician Hematology/Oncology 09/14/21 Davida Restrepo RN [address] [place] [address] Specialty Web Production Artist Hematology/Oncology 09/14/21 Rn Geriatric Relationship Specialty Start Date End Date Evans Casas DO [address] [place] [address] PCP - General Family Medicine 01/30/22 Jonny Wilcox MD [address] [place] [address] Primary Staff Physician Cardiology 07/16/18 [place] [address] [place] [address] Physician Hematology/Oncology 09/14/21 Davida Restrepo RN [address] [place] [address] Specialty Web Production Artist Hematology/Oncology 09/14/21 Rn Geriatric Relationship Specialty Start Date End Date Evans Casas DO [address] [place] [address] PCP - General Family Medicine 01/30/22 Jonny Wilcox MD [address] [place] [address] Primary Staff Physician Cardiology 07/16/18 [place] [address] [place] [address] Physician Hematology/Oncology 09/14/21 Davida Restrepo RN [address] [place] [address] Specialty Web Production Artist Hematology/Oncology 09/14/21 Rn Geriatric Relationship Specialty Start Date End Date Evans Casas MD [address] [place] [address] PCP - General Family Medicine 11/07/23 Rn Geriatric Relationship Specialty Start Date End Date Evans Casas MD [address] [place] [address] PCP - General Family Medicine 11/07/23 Rn Geriatric Relationship Specialty Start Date End Date Evans Casas MD [address] [place] [address] PCP - General Family Medicine 11/07/23 Rn Geriatric Relationship Specialty Start Date End Date Evans Casas MD [address] [place] [address] PCP - General Family Medicine 11/07/23 Rn Geriatric Relationship Specialty Start Date End Date Evans Casas MD [address] [place] [address] PCP - General Family Medicine 11/07/23 Team Status: Inactive Member Role Status Dates Wilton Herrmann DO Attending Provider Active Start : May 10, 2024 End: May 10, 2024 Rn Geriatric Relationship Specialty Start Date End Date Evans Casas DO [address] [facility] [place] [place] [address] PCP - General Family Medicine 01/30/22 Jonny Wilcox MD [address] [place] [address] Primary Staff Physician Cardiology 07/16/18 [place] [address] [place] [address] Physician Hematology/Oncology 09/14/21 Davida Restrepo, RN [address] [place] [address] Specialty Web Production Artist Hematology/Oncology 09/14/21 Rn Geriatric Relationship Specialty Start Date End Date Evans Casas MD [address] [place] [address] PCP - General Family Medicine 11/07/23 Rn Geriatric Relationship Specialty Start Date End Date Evans Casas MD [address] [place] [address] PCP - General Family Medicine 11/07/23 Rn Geriatric Relationship Specialty Start Date End Date Evans Casas MD [address] [place] [address] PCP - General Family Medicine 11/07/23 Rn Geriatric Relationship Specialty Start Date End Date Evans Casas MD [address] [place] [address] PCP - General Family Medicine 11/07/23 Rn Geriatric Relationship Specialty Start Date End Date Evans Casas DO [address] [place] [address] PCP - General Family Medicine 01/30/22 Jonny Wilcox MD [address] [place] [address] Primary Staff Physician Cardiology 07/16/18 [place] [address] [place] [address] Physician Hematology/Oncology 09/14/21 Davida Restrepo, RN [address] [place] [address] Specialty Web Production Artist Hematology/Oncology 09/14/21 Rn Geriatric Relationship Specialty Start Date End Date Evans Casas MD [address] [place] [address] PCP - General Family Medicine 11/07/23 Rn Geriatric Relationship Specialty Start Date End Date Evans Casas MD [address] [place] [address] PCP - General Family Medicine 11/07/23 Rn Geriatric Relationship Specialty Start Date End Date Evans Casas DO PCP - General Family Medicine 07/07/19 Rn Geriatric Relationship Specialty Start Date End Date Evans Casas DO PCP - General Family Medicine 07/07/19 Rn Geriatric Relationship Specialty Start Date End Date Evans Casas MD [address] [facility] [place] [address] PCP - General Family Medicine 11/07/23 Rn Geriatric Relationship Specialty Start Date End Date Evans Casas DO PCP - General Family Medicine 07/07/19 Rn Geriatric Relationship Specialty Start Date End Date Evans Casas DO PCP - General Family Medicine 07/07/19 Rn Geriatric Relationship Specialty Start Date End Date Evans Casas DO [address] [place] [address] PCP - General Family Medicine 01/30/22 Jonny Wilcox MD [address] [place], [place] [id number] Primary Staff Physician Cardiology 07/16/18 [place] [address] [place], [place] [phone] Physician Hematology/Oncology 09/14/21 Davida Restrepo, RN [address] [place], [place] [id number] Specialty Web Production Artist Hematology/Oncology 09/14/21 Rn Geriatric Relationship Specialty Start Date End Date Evans Casas DO PCP - General Family Medicine 07/07/19 Rn Geriatric Relationship Specialty Start Date End Date Evans Casas MD [address] [facility] [place] [address] PCP - General Family Medicine 11/07/23 Rn Geriatric Relationship Specialty Start Date End Date Evans Casas MD [address] [facility] [place] [address] PCP - General Family Medicine 11/07/23 Rn Geriatric Relationship Specialty Start Date End Date Evans Casas DO PCP - General Family Medicine 07/07/19 Rn Geriatric Relationship Specialty Start Date End Date Evans Casas DO PCP - General Family Medicine 07/07/19 Rn Geriatric Relationship Specialty Start Date End Date Evans Casas MD [address] [facility] [place] [address] PCP - General Family Medicine 11/07/23 Reason [...] Orders Specialty Diagnoses / Procedures Referred By Contkal t Referred To Contact Diagnoses Iron deficiency anemia secondary to blood loss (chronic) Iron deficiency anemia of Procedures INJECTION, FERRIC DERISOMALTOSE, 10 MG Salvador Calxi MD [address] [place] [address] [place] [address] Delgado Treat González[address] [place] [address] Referral ID Status Reason Start Date Expiration Date Visits Re quested Visits Authorized [id number] Closed 04/05/2022 05/09/2022 1 1 Reason Comments Refill Request Specialty Diagnoses / Procedures Referred By Contac t Referred To Contact Diagnoses Iron deficiency anemia secondary to blood loss (chronic) Iron deficiency anemia of Procedures IRON SUCROSE INJECTION PER 1 MG Salvador Calix MD [address] [place] [address] [place] [address] Delgado Treat González[address] [place] [address] Referral ID Status Reason Start Date Expiration Date V isits Requested Visits Authorized [id number] Authorized 03/27/2022 04/30/2022 99 99 Reason Onset Date Comments Refill Request 07/03/2022 Reason Comments Anemia Follow up Reason Comments Orders Reason Comments Established Patient Reason Comments Appointment Reason Comments Lab Orders Reason Comments Primary hypercoagulable state (HCC) Foll ow up Reason Comments Appointment Rescheduled Specialty Diagnoses / Procedures Referred By Contac t Referred To Contact Diagnoses Iron deficiency anemia of Iron deficiency anemia secondary to blood loss (chronic) Procedures IRON SUCROSE INJECTION PER 1 MG Salvador Calix MD [address] [place] [address] [place] [address] Delgado [address] [place] [address] Referral ID Status Reason Start Date Expiration Date V isits Requested Visits Authorized [id number] Authorized 11/05/2023 05/04/2024 0 3 Reason Onset Date Comments Refill Request 11/29/2023 Reason Comments Amenorrhea Reason Onset Date Comments Refill Request 04/28/2024 Reason Comments Routine Visit Reason Comments Patient Update Reason Comments Anemia followup Reason Comments follow up miscarriage Reason Comments Vaginal Bleeding Dizziness Reason Comments Irregular Cycles Reason Onset Date Comments Refill Request 07/25/2024 Reason Onset Date Comments Refill Request 10/20/2024 Reason Onset Date Comments Refill Request 10/29/2024 Reason Comments Gestational Diabetes Specialty Diagnoses / Procedures Referred By Contac t Referred To Contact Maternal and Medicine Diagnoses Gestational diabetes mellitus (GDM), antepartum, gestational diabetes method of control unspecified Wilton Herrmann R, DO [address] [facility] [place] [address] Phone: tel: fax: Maternal- Medicine at [facility] [address] [facility] [place] [address] Phone: tel: fax: Referral ID Status Reason Start Date Expiration Date Visits Requested Visits Authorized [id number] Pending Review Specialty Services Required 10/13/2024 10/13/2025 1 1 Goals (unrecognized section and content) Goals may be documented in a n alternate section FOR RECORDS PERTAINING TO PATIENTS WHO ARE [...] BE BASED ON THE PRIMARY CLINICAL RECORDS. [facility] [employer] [facility]. provides no warranty or guarantee of the accuracy or completeness of information in this document.
[2024-12-11 11:32] LABS: Thyroid Stimulating Hormone 1.508 uIU/mL (0.358-3.740)
== END 2024-12-11 10:30 | disposition home or self-care (01) ==
LOC: LAB 10:30
PROVIDERS: PCP Family Medicine; Visit Provider Obstetrics & Gynecology
DX: O99.282 Endocrine, nutritional and metabolic diseases complicating pregnancy, second trimester (principal); E07.9 Disorder of thyroid, unspecified
CPT/HCPCS: 36415; 84443

== ENCOUNTER 2024-12-16 18:22 | Observation (INO) | payer MEDICAID, SELFPAY ==
--- OUTSIDE RECORDS SUMMARY | 2024-12-03 14:00 | XMS_ITS | Encounter Summary ---
Author Organization [facility] tem Address [id number] [address] [place] [address] Care Team Providers Care Geoscience Professor Name Role Phone Evans Casas DO Primary Care Provider [phone] Encounter Details Date Type Department Care Team (Late st Contact Info) Description 12/03/2024 2:00 PM EDT Telemedicine Maternal- Medicine at [facility] [address] [place] [phone] Alisa Saba APRN-TAXONOMIST [address] [place] [address] Insulin controlled gestational diabetes mellitus (GDM) in [...] starting insulin. She is being followed at [facility] due to GDMA2. States she is following [...] TSH 1.25 10/28/2024 No results found for: [id number] No results found for: CREATININE , BUN [...] baby. Little research has been done on terminal worker effects of Metformin exposure to the fetus. [...] values to us weekly by e-mail to: [email or web address] or by fax to: [phone] TIME OF CONSULTATION: 60 minutes with the patient, >50% in discussion and counseling, coordination of care which was [id number], review of records and communication back to referring provider. BRENNEN Guillen 12/03/24 1500 documented in this encounter Plan of Treatment Upcoming Encounters Date Type Department Care Team (Late st Contact Info) Description 12/17/2024 1:30 PM EDT Telemedicine Maternal- Medicine at [facility] [address] [place] [phone] Alisa Saba APRN-CNP [address] [place] [address] 01/01/2025 1:00 PM EDT Appointment Maternal Medicine [place] [address] [address] 01/01/2025 2:30 PM EDT Telemedicine Maternal Medicine [place] [address] [address] Wilfrid Medina MD [address] [facility], [address] [place] [address] Scheduled Orders Name Type Priority Associated Diagnoses Orde r Schedule Vitamin D 25 hydroxy Lab Routine Insulin controlled gestational diabetes mellitus (GDM) in second trimester 1 Occurrences starting 12/03/2024 until 12/03/2025 documented as of this encounter Visit Diagnoses Diagnosis Insulin controlled gestational diabetes mellitus (GDM) in second trimester- Primary documented in this encounter Care Teams Geoscience Professor Relationship Specialty Start Date End Date Evans Casas DO PCP - General Family Medicine 07/07/19 documented as of this encounter
--- OUTSIDE RECORDS SUMMARY | 2024-12-11 09:10 | XMS_ITS | Encounter Summary ---
Author Organization [facility] Address [address] [place] [address] Care Team Providers Care Finnish Rubber Name Role Phone Evans Casas MD Primary Care Provider [phone] Encounter Details Date Type Department Care Team (Late st Contact Info) Description 12/11/2024 9:10 AM EDT Routine [facility] [address] [place] [address] Wilton Herrmann DO [address] [place], [place] [id number] 19 weeks gestation of ([facility] Second trimester ([facility]); Thyroid disease ; Multigravida of advanced maternal age in second trimester ([facility]); Gestational diabetes mellitus (GDM), antepartum, gestational diabetes method of control unspecified ([facility]) Social History Tobacco Use Types Packs/Day Years Used Date Smoking Tobacco: Never Smokeless Tobacco: Never Alcohol Use Standard Drinks/Week Comments Never 0 (1 standard drink = 0.6 oz pur e alcohol) PHQ-2 Answer Date Recorded Patient Health Questionnaire-2 Score 0 12/08/2024 Estimated Date of Delivery Comme nts Yes 05/04/2025 Based on last me nstrual period of 07/28/2024 Sex and Gender Information Value Date Recorded Sex Assigned at Not on file Legal Sex Female 11:19 PM EDT Gender Identity Not on file Sexual Orientation Not on file documented as of this encounter Last Filed Vital Signs Vital Sign Reading Time Taken Comments Blood Pressure 120/70 12/11/2024 9:28 AM EDT Pulse - - Temperature - - Respiratory Rate - - Oxygen Saturation - - Inhaled Oxygen Concentration - - Weight 93.9 kg (207 lb) 12/11/2024 9:28 AM EDT Height - - Body Mass Index 33.41 11/19/2023 1:48 PM EDT documented in this encounter Progress Notes * Rosi Murray LPN - 12/11/2024 9:10 AM EDT Reason for Appointment: Patient ID: Sanna Bone is a 39 y.o. female who presents for No chief complaint on file. Patient presents today for Return OB appointment. MEDICATIONS Current Outpatient Medications Medication Instructions Alcohol Swabs (Alcohol Prep Pad) 70 % pads 1 Pad, Topical, Daily, Use four times daily to check FSBS. Blood Glucose Monitoring Suppl ([employer] Glucometer) w/Device kit 1 kit, Does not apply, Daily, Use four times daily to check FSBS. In the morning prior to breakfast & 1 hour after each meal for a total of 4times daily. docusate sodium (COLACE) 100 mg, 2 times daily enoxaparin (Lovenox) 40 MG/0.4ML injection Every 24 hours fluticasone (Flonase) 50 MCG/ACT nasal spray 1 spray, Each Nostril, Daily, Shake gently. Before first use, prime pump. After use, clean tip and replace cap. levothyroxine (SYNTHROID) 25 mcg, Oral, Daily before breakfast metFORMIN XR (GLUCOPHAGE-XR) 500 mg, Oral, Every 24 hours Multiple Vitamin (Multi-Vitamin) tablet 1 tablet, Daily RT polyethylene glycol (PEG) 3350 (GLYCOLAX) 17 g, Daily ALLERGIES Allergies Allergen Reactions Ciprofloxacin GI intolerance Ciprofloxacin-Fluocinolone Pf Other Reaction(s): Other: See Comments Dizziness, weakness sweating Lactose Other Reaction(s): GI Disturbance, GI Upset Diarrhea Diarrhea Lactose Intolerance (Gi) Other Reaction(s): Illness Octacosanol Other Reaction(s): Other (See Comments) Other Other seasonal PROBLEMS Active Ambulatory Problems Diagnosis Date Noted 32 weeks gestation of ([facility]) 11/28/2019 Abdominal pain 06/12/2023 Acute bronchitis due to infection 06/12/2023 Acute on chronic vesicular eczema of hands and feet 11/15/2023 Anemia complicating childbirth ([facility]) 01/16/2020 Anticoagulant long-term use 02/22/2020 Antiphospholipid antibody positive 09/10/2017 Antiphospholipid antibody syndrome ([facility]) 07/07/2019 Anxiety 06/12/2023 Blood pressure elevated without history of HTN 11/15/2023 BMI 37.0-37.9, adult 11/15/2023 Cerebral infarction, unspecified ([facility]) 05/16/2019 Cerebrovascular accident (CVA) due to stenosis of middle cerebral artery ([facility]) 02/22/2020 Cervicalgia 02/05/2019 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 ([facility]) 01/08/2020 Coagulation defect, unspecified ([facility]) 02/05/2019 Cold intolerance 11/15/2023 Deficiency of other specified B group vitamins 05/16/2019 Deviated septum 11/15/2023 Dizziness and giddiness 02/05/2019 Dry mouth 11/15/2023 Dysfunction of eustachian tube 06/12/2023 Dyspnea 06/12/2023 Elevated blood pressure reading 11/15/2023 Encounter for supervision of normal , unspecified, first trimester ([facility]) 05/29/2019 Environmental allergies 11/15/2023 Fatigue 12/29/2016 First degree perineal laceration during delivery ([facility]) 01/16/2020 Frequency of micturition 02/19/2019 Genitourinary symptoms 08/19/2021 Gestational diabetes mellitus (GDM) affecting ([facility]) 01/26/2022 H/O: hypothyroidism 11/15/2023 Hematochezia 06/12/2023 History [...] anemia 01/16/2020 Irregular uterine bleeding 11/15/2023 problem ([facility]) 06/12/2023 Less than 8 weeks gestation of ([facility]) 06/05/2019 joint terminal attack controller (current) use of 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/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 02/05/2019 Migraine without aura and without status migrainosus, not intractable 09/12/2017 Morbid obesity ([facility]) 11/15/2023 Muscle fasciculation 08/19/2021 Nasal polyps 11/15/2023 Non-smoker 11/15/2023 NEETA (obstructive sleep apnea) 11/15/2023 Other acute postprocedural pain 02/03/2019 Other general symptoms and signs 10/28/2019 Other immediate hemorrhage ([facility]) 01/16/2020 Other specified noninflammatory disorders of vagina 02/21/2019 Pain in joint 12/29/2016 Palpitations 08/26/2019 Paresthesia of bilateral legs 11/15/2023 Pelvic and perineal pain 02/01/2019 Personal history of urinary (tract) infections 01/16/2020 Pre-diabetes 11/15/2023 Primary hypercoagulable state ([facility]) 08/01/2022 Pruritus, unspecified 01/02/2020 Psychogenic hyperventilation 06/12/2023 Raised antibody titer 09/25/2017 Right lower quadrant pain 11/15/2023 Right otitis externa 11/15/2023 Salivary gland swelling 11/15/2023 Single live ([facility]) 01/15/2020 Snoring 11/15/2023 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) 12/30/2019 Suspected severe acute respiratory syndrome coronavirus 2 (SARS-CoV-2) infection 06/12/2023 SVT (supraventricular tachycardia) ([facility]) 08/26/2019 Syncope and collapse 06/03/2018 Other bacterial infections of unspecified site 06/27/2019 Thrombocytopenia, unspecified 11/20/2019 Hypoglycemia 06/12/2023 Unspecified condition associated with female genital organs and menstrual cycle 05/09/2019 Unspecified ovarian cyst, right side 02/06/2019 Urinary tract infection 10/16/2019 Referred otalgia of right ear 11/19/2023 LPRD (laryngopharyngeal reflux disease) 11/19/2023 Resolved Ambulatory Problems Diagnosis Date Noted No Resolved Ambulatory Problems Past Medical History: Diagnosis Date AMA (advanced maternal age) multigravida 35+ ([facility]) Anemia Antiphospholipid syndrome ([facility]) Gestational diabetes ([facility]-H[facility]) Heartburn Hypothyroid Stroke (HCC) HISTORY PAST MEDICAL HISTORY SOCIAL HISTORY Past Medical History: Diagnosis Date AMA (advanced maternal age) multigravida 35+ ([facility]-HCC) Anemia Antiphospholipid syndrome ([facility]HS-HCC) Gestational diabetes ([facility]HS-HCC) Heartburn Hypothyroid Stroke (HCC) Social History Tobacco Use Smoking status: Never [...] drainage of cyst WISDOM TOOTH EXTRACTION 2007 [place] teeth REVIEW OF SYSTEMS Review of Systems: Review of Systems Constitutional: Negative. HENT: Negative. Eyes: Negative. Respiratory: Negative. Cardiovascular: Negative. Gastrointestinal: Negative. Genitourinary: Positive for vaginal discharge. Musculoskeletal: Negative. Skin: Negative. Neurological: Negative. All [...] nursing note reviewed. Exam conducted with a lease purchase driver present. Vitals: Estimated body mass index is 33.41 kg/m?? as calculated from the following: Height as of 11/19/23: 5' 6 . Weight as of this encounter: 207 lb. BP: 120/70 Patient's last menstrual period was 07/28/2024. ASSESSMENT & PLAN ICD-10-CM 1. 19 weeks gestation of ([facility]) Z3A.19 POCT urinalysis dipstick manually resulted 2. Second trimester ([facility]) Z34.92 POCT urinalysis dipstick manually resulted 3. Thyroid disease E07.9 4. Multigravida of advanced maternal age in second trimester ([facility]) O09.522 5. Gestational diabetes mellitus (GDM), antepartum, gestational diabetes method of control unspecified ([facility]) O24.419 Patient presents today for a routine obstetrics appointment. Patient is currently 19w3d with a Estimated Date of Delivery: 05/04/25. Discussed concerns and answered questions in regards to BV.Discussed MFM appointment and patient has not had her appointment to discuss injections. Answered patients questions in regards to insulin as well and gave patient reassurance. Patient had concerns with possible hypoglycemia and informed patient that she would be taking a long-acting insulin. Patient to return to clinic in 3-4 weeks for routine OB care. Patient will continue to utilize MFM for blood sugar management. Patient is scheduled with MFM on 01/01/25 for scan and Telemedicine with MFM provider in [place]. Documented by Rosi Murray LPN on behalf of: Wilton Herrmann DO documented in this encounter Plan of Treatment Upcoming Encounters Date Type Department Care Team (Late st Contact Info) Description 01/05/2025 2:40 PM EDT Routine [facility] [address] [address] Wilton Herrmann DO [address] [place] [address] Scheduled Orders Name Type Priority Associated Diagnoses Orde r Schedule TSH Lab Routine Second trimester ([facility]) Thyroid disease Ordered: 12/11/2024 documented as of this encounter Procedures Procedure Name Priority Date/Time Associated Diagnosis Comments POCT URINALYSIS DIPSTICK Routine 12/11/2024 9:36 AM EDT 19 weeks gestation of ([facility]) Second trimester ([facility]) documented in this encounter Results * POCT urinalysis dipstick manually resulted (12/11/2024 9:36 AM EDT) Color, UA Yellow Clarity, UA Clear Glucose, UA Negative Negative - 2000(110) ++++ mg/dL Bilirubin, UA Negative Negative - 4(70) +++ mg/dL Ketones, UA Negative Negative - 160(16) ++++ mg/dL Spec Grav, UA 1.010 1 - 1.03 Blood, UA Negative Negative - 50 Max/mcL pH, UA 6.0 5 - 9 Protein, UA Negative Negative - 2000(20) ++++ mg/dL Urobilinogen, UA 1.0 0.2 - 12 mg/dL Leukocytes, UA Negative Negative - 500+++ John/mcL Nitrite, UA Negative Negative - Positive Urine 12/11/2024 9:36 AM EDT Wilton Quinno DO POINT OF CARE TEST ENTER/EDIT OR DERABLES Final Result documented in this encounter Visit Diagnoses Diagnosis 19 weeks gestation of ([facility]) Second trimester ([facility]) state, incidental Thyroid disease Unspecified disorder of thyroid Multigravida of advanced maternal age in second trimester ([facility]) Gestational diabetes mellitus (GDM), antepartum, gestational diabetes method of control unspecified ([facility]) documented in this encounter Care Teams Finnish Rubber Relationship Specialty Start Date End Date Evans Casas MD [facility] [place] [address] PCP - General Family Medicine 11/07/23 documented as of this encounter
--- OUTSIDE RECORDS SUMMARY | 2024-12-16 18:26 | XMS_ITS | Encounter Summary ---
Author Organization [facility] Address [address] [place] [address] Care Team Providers Care Golf Player Assistant Name Role Phone Evans Casas MD Primary Care Provider [phone] Encounter Details Date Type Department Care Team (Late Contact Info) Description 06/10/2024 Abstract N[address]Jaylan COLVIN [address] [facility] [phone] Wilton Herrmann DO [address] [place] [address] Dr June [place], [facility]11 Social History Tobacco Use Types Packs/Day [...] EDT Routine SHILOH COLVIN [address] [facility] [place] [place] [phone] Wilton Herrmann DO [address] [facility] [address] [place] [phone] documented as of this encounter Visit Diagnoses Not on filedocumented in this encounter Care Teams Golf Player Assistant Relationship Specialty Start Date End Date Evans Casas MD [address] [place] [address] PCP - General Family Medicine 11/07/23 documented as of this encounter
--- OUTSIDE RECORDS SUMMARY | 2024-12-16 18:26 | XMS_ITS | Encounter Summary ---
Author Organization [facility] Address [address] [place] [address] Care Team Providers Care Volunteer Services Assistant Name Role Phone Evans Casas MD Primary Care Provider [phone] Encounter Details Date Type Department Care Team (Late Contact Info) Description 05/28/2024 Abstract NOMJaylan COLVIN [address] [facility] [place] [phone] Wilton Herrmann DO [address] [place] [address] Dr June [place], [facility] Social History Tobacco Use Types Packs/Day [...] [address] [facility] [place] [phone] Wilton Herrmann DO [address] [facility] [address] [place] [phone] documented as of this encounter Visit Diagnoses Not on filedocumented in this encounter Care Teams Volunteer Services Assistant Relationship Specialty Start Date End Date Evans Casas MD [address] [place] [address] PCP - General Family Medicine 11/07/23 documented as of this encounter
--- OUTSIDE RECORDS SUMMARY | 2024-12-16 18:26 | XMS_ITS | Encounter Summary ---
Author Organization [facility] Address [address] [place] [address] Care Team Providers Care Rand Sewer Name Role Phone Evans Casas MD Primary Care Provider [phone] Encounter Details Date Type Department Care Team (Late Contact Info) Description 06/13/2024 Abstract NOMJaylan COLVIN [address] [facility] [place] [phone] Wilton Herrmann DO [address] [place] [address] Dr June [place], [facility]11 Social History Tobacco Use Types Packs/Day [...] 2:40 PM EDT Routine SHILOH COLVIN [address] [facility] [place] [phone] Wilton Herrmann DO [address] [facility] [address] [place], [place] [phone] documented as of this encounter Visit Diagnoses Not on filedocumented in this encounter Care Teams Rand Sewer Relationship Specialty Start Date End Date Evans Casas MD [address] [place] [address] PCP - General Family Medicine 11/07/23 documented as of this encounter
--- OUTSIDE RECORDS SUMMARY | 2024-12-16 18:26 | XMS_ITS | Encounter Summary ---
Author Organization [facility] Address [address] [place] [address] Care Team Providers Care Residential Mortgage Manager Name Role Phone Evans Casas MD Primary Care Provider [phone] Encounter Details Date Type Department Care Team (Late st Contact Info) Description 12/12/2024 Patient Outreach [facility] [address] [place] [phone] Petar Whitmore LPN [address] [place] [address] Social History Tobacco Use Types Packs/Day Years [...] Progress Notes * Petra Whitmore LPN - 12/12/2024 11:30 AM EDT Returned pt call. Pt reports she started new insulin last evening before bed and had symptoms of shortness of breath, increased heart rate and excessive thirst within ten minutes of first dose. Pt placed call to [facility] and they are managing situation. Pt reports they had her DC insulin and will be prescribing another today. <December 12, 2024, 11:34 - Petra Whitmore LPN> documented in this encounter Plan of Treatment Upcoming Encounters Date Type Department Care Team (Late st Contact Info) Description 01/05/2025 2:40 PM EDT Routine [facility] [address] [facility] [phone] Wilton Herrmann DO [address] [facility] [place] [address] documented as of this encounter Visit Diagnoses Not on filedocumented in this encounter Care Teams Residential Mortgage Manager Relationship Specialty Start Date End Date Evans Casas MD [address] [place] [address] PCP - General Family Medicine 11/07/23 documented as of this encounter
--- OUTSIDE RECORDS SUMMARY | 2024-12-16 18:26 | XMS_ITS | Encounter Summary ---
Author Organization [facility] [email or web address] [facility] tem Address [id number] [address] [place] [address] Care Team Providers Care Program Or Project Administrator Name Role Phone Evans Casas DO Primary Care Provider [phone] Encounter Details Date Type Department Care Team ([facility] Contact Info) Description 12/12/2024 Orders Only Maternal- Medicine at [facility] [address] [place] [phone] Star Waggoner MD [address] [place] [address] Social History Tobacco Use Types Packs/Day Years [...] Upcoming Encounters Date Type Department Care Team ([facility] Contact Info) Description 12/17/2024 1:30 PM EDT Telemedicine Maternal- Medicine at [facility] [address] [facility] [place] [phone] Alisa Saba APRN-FOREST TECHNOLOGY PROFESSOR [address] [place] [address] 01/01/2025 1:00 PM EDT Appointment Maternal Medicine [place] [address] [address] 01/01/2025 2:30 PM EDT Telemedicine Maternal Medicine [place] [address] [address] Wilfrid Medina MD [address] [facility], [address] [place] [address] documented as of this encounter Visit Diagnoses Not on filedocumented in this encounter Care Teams Program Or Project Administrator Relationship Specialty Start Date End Date Evans Casas DO PCP - General Family Medicine 07/07/19 documented as of this encounter
--- OUTSIDE RECORDS SUMMARY | 2024-12-16 18:26 | XMS_ITS | Clinical Summary ---
Author Organization [facility] Address [address] [place] [address] Care Team Providers Care Patient Companion Name Role Phone Jonny Wilcox MD Unavailable [phone] Cosmo Elliott MD Unavailable [phone] Davida Restrepo RN Unavailable [phone] Evans Casas DO Primary Care Provider [phone] Allergies Active Allergy Reactions Criticality Noted Date [...] Department Care Team Description 10/29/2024 Refill Hematology/Oncology [address] [place] [address] [place] [address] Emelyn Paz, LENS INSERTER.WATCH REPAIRER Refill Request 10/28/2024 2:30 PM EDT Visit (SP) Office Hematology/Oncology [address] [place] [address] [place] [address] 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, LENS INSERTER.WATCH REPAIRER Primary hypercoagulable state (HCC) (Primary Dx); CVA, old, speech/language deficit; Cerebral hyponatremia; Personal history of TIA (transient ischemic attack) 10/28/2024 Telephone Cancer Appts [address] [place] [address] 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, LENS INSERTER.WATCH REPAIRER Results 10/28/2024 Travel 10/24/2024 Telephone Hematology/Oncology [address] [place] [address] [place] [address] 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, LENS INSERTER.WATCH REPAIRER Lab Orders 10/20/2024 Refill Hematology/Oncology [address] [place] [address] [place] [address] Salvador Dos Santos MD Refill Request from [...] is lower risk 4 09/28/2022 Data from: https://www.neighborhoodatlas.medicine.[facility].edu/. Last address used for calculation [address] 09/28/2022 Estimated Date of Delivery Comme [...] Description 12/22/2024 1:15 PM EDT Office Visit [facility] [address] [facility] [place] [address] 8 week follow up lab 12/22/2024 1:30 PM EDT Visit (SP) Office Hematology/Oncology [address] [facility] [place] [address] 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 APRN.WATCH REPAIRER [address] [place] [address] 8 week follow up lab Health Maintenance [...] - 80.0 ng/mL 10/29/2024 1:05 PM EDT [facility] Comment: Classification of 25 [place] Vitamin D status: Deficiency/Insufficiency: < or = 30 ng/ml. Sufficiency/Optimal Levels: 31-80 ng/mL Toxicity: > 100 ng/mL. Test performed by chemiluminescent immunoassay. Blood BLOOD SPECIMEN / Unknown Venipuncture / Unknown 10/28/2024 2:16 PM EDT 10/28/2024 2:16 PM EDT Narrative [facility] - 10/29/2024 1:05 PM EDT The reference range interval was based on an analysis of samples from healthy adults and may not pertain to children from 0-18 years old. us 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 LENS INSERTER.WATCH REPAIRER LABORATORY Final Re sult [facility] [address] [facility] [address] [address], * VITAMIN B12 (10/28/2024 2:16 PM EDT) Vitamin B12 483 232 - 1,245 pg/mL 10/29/2024 1:12 AM EDT [facility] Blood BLOOD SPECIMEN / Unknown Venipuncture / Unknown 10/28/2024 2:16 PM EDT 10/28/2024 2:16 PM EDT 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 LENS INSERTER.WATCH REPAIRER LABORATORY Final Re sult Performing Organization Address [facility] Co de Phone Number [facility] [address] [place] [id number], [place] * THYROID STIMULATING HORMONE (10/28/2024 2:16 PM EDT) TSH 1.250 0.270 - 4.200 mIU/L 10/29/2024 1:12 AM EDT [facility] Comment: If the patient is , TSH reference range varies by gestational period: First Trimester (weeks 9-12): 0.180-2.990 mIU/L Second Trimester: 0.110-3.980 mIU/L Third Trimester: 0.480-4.710 mIU/L Danny Varela et al. A Practical Approach for the Verifications and Determination of Site- and Trimester-Specific Reference Intervals for Thyroid Function tests in . Thyroid, 2019:29:3:412-420. Saeed E, et al. 2017 Guidelines of the [place] Thyroid Association for the Diagnosis and Management of Thyroid Disease during and the . Thyroid, 2017:27:3:315-389. Blood BLOOD SPECIMEN / Unknown Venipuncture / Unknown 10/28/2024 2:16 PM EDT 10/28/2024 2:16 PM EDT us 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 LENS INSERTER.WATCH REPAIRER LABORATORY Final Re sult Performing Organization Address [facility]/ZIP Co de Phone Number [facility] [address] [facility] [place] [id number], [place] * (ABNORMAL) IRON AND TIBC (10/28/2024 2:16 PM EDT) Iron 72 41 - 186 ug/dL 10/29/2024 12:58 AM EDT [facility] TIBC 399(H) 232 - 386 ug/dL 10/29/2024 12:58 AM EDT [facility] Transferrin Saturation 18.0 15.0 - 57.0 % 10/29/2024 12:58 AM EDT [facility] Blood BLOOD SPECIMEN / Unknown Venipuncture / Unknown 10/28/2024 2:16 PM EDT 10/28/2024 2:16 PM EDT 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 APRN.WATCH REPAIRER LABORATORY Final Re sult Performing Organization Address City/[facility]/ZIP Co de Phone Number [facility] [address] [place] [address], [place] * FERRITIN (10/28/2024 2:16 PM EDT) Pathologist [facility] Ferritin 99.6 14.7 - 205.1 ng/mL 10/29/2024 1:12 AM EDT [facility] Blood BLOOD SPECIMEN / Unknown Venipuncture / Unknown 10/28/2024 2:16 PM EDT 10/28/2024 2:16 PM EDT 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 APRN.WATCH REPAIRER LABORATORY Final Re sult Performing Organization Address [facility] de Phone Number [facility] [address] [place] [address], [place] * (ABNORMAL) COMPREHENSIVE METABOLIC PANEL (10/28/2024 2:16 PM EDT) Protein, Total 7.6 6.3 - 8.0 g/dL 10/28/2024 2:47 PM EDT [facility] Albumin 4.4 3.9 - 4.9 g/dL 10/28/2024 2:47 PM EDT [facility] Calcium, Total 9.9 8.5 - 10.2 mg/dL 10/28/2024 2:47 PM EDT [facility] Bilirubin, Total 0.2 0.2 - 1.3 mg/dL 10/28/2024 2:47 PM EDT [facility] Alkaline Phosphatase 55 34 - 123 U/L 10/28/2024 2:47 PM EDT [facility] AST 13 13 - 35 U/L 10/28/2024 2:47 PM EDT [facility] ALT 18 7 - 38 U/L 10/28/2024 2:47 PM EDT [facility] Glucose 101(H) 74 - 99 mg/dL 10/28/2024 2:47 PM T [facility] Comment: The [place] Diabetes Association (ADA) provides guidance for cutoff [...] Standards of Medical Care in Diabetes 2016, [place] Diabetes Association. Diabetes Care. 2016.39(Suppl 1). BUN 7 7 - 21 mg/dL 10/28/2024 2:47 PM T [facility] Creatinine 0.60 0.58 - 0.96 mg/dL 10/28/2024 2:47 PM [facility] Sodium 133(L) 136 - 144 mmol/L 10/28/2024 2:47 PM T [facility] Potassium 3.5(L) 3.7 - 5.1 mmol/L 10/28/2024 2:47 PM T [facility] Chloride 99 98 - 107 mmol/L 10/28/2024 2:47 PM T [facility] CO2 22 22 - 30 mmol/L 10/28/2024 2:47 PM EDT [facility] Anion Gap 12 8 - 15 mmol/L 10/28/2024 2:47 PM T [facility] Estimated Glomerular Filtration Rate 117 >=60 mL/min/1. 73m 10/28/2024 2:47 PM EDT [facility] Comment:Estimated Glomerular Filtration Rate (eGFR) [...] 10/28/2024 2:16 PM EDT us 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 LENS INSERTER.[facility] Final Re sult [facility] [address] [place] [address] * COMPLETE BLOOD COUNT AND DIFFERENTIAL (10/28/2024 2:16 PM EDT) WBC 9.52 3.70 - 11.00 k/uL 10/28/2024 2:20 PM EDT [facility] RBC 4.25 3.90 - 5.20 m/uL 10/28/2024 2:20 PM EDT [facility] Hemoglobin 13.0 11.5 - 15.5 g/dL 10/28/2024 2:20 PM EDT [facility] Hematocrit 36.9 36.0 - 46.0 % 10/28/2024 2:20 PM EDT [facility] MCV 86.8 80.0 - 100.0 fL 10/28/2024 2:20 PM EDT [facility] MCH 30.6 26.0 - 34.0 pg 10/28/2024 2:20 PM EDT [facility] MCHC 35.2 30.5 - 36.0 g/dL 10/28/2024 2:20 PM EDT [facility] RDW-CV 14.5 11.5 - 15.0 % 10/28/2024 2:20 PM EDT [facility] Platelet Count 327 150 - 400 k/uL 10/28/2024 2:20 PM EDT [facility] MPV 9.8 9.0 - 12.7 fL 10/28/2024 2:20 PM EDT [facility] Neutrophils % 68.1 % 10/28/2024 2:20 PM EDT [facility] Abs Neut 6.48 1.45 - 7.50 k/uL 10/28/2024 2:20 PM EDT [facility] Lymphocytes % 26.3 % 10/28/2024 2:20 PM EDT [facility] Abs Lymph 2.50 1.00 - 4.00 k/uL 10/28/2024 2:20 PM EDT [facility] Monocytes % 4.6 % 10/28/2024 2:20 PM EDT [facility] Abs Baxter 0.44 <0.87 k/uL 10/28/2024 2:20 PM EDT [facility] Eosinophils % 0.5 % 10/28/2024 2:20 PM EDT [facility] Abs Eosin 0.05 <0.46 k/uL 10/28/2024 2:20 PM EDT [facility] Basophils % 0.3 % 10/28/2024 2:20 PM EDT [facility] Abs Baso 0.03 <0.11 k/uL 10/28/2024 2:20 PM EDT [facility] Immature Granulocytes % 0.2 % 10/28/2024 2:20 PM EDT [facility] Abs Immature Gran <0.03 <0.10 k/uL 2 025 2:20 PM EDT [facility] NRBC 0.0 /100 WBC 10/28/2024 2:20 PM EDT [facility] Absolute nRBC <0.01 <0.01 k/uL 10/28/2024 2:20 PM EDT [facility] Diff Type Auto 10/28/2024 2:20 PM EDT [facility] Blood BLOOD SPECIMEN / Unknown Venipuncture / Unknown 10/28/2024 2:16 PM EDT 10/28/2024 2:16 PM EDT us 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 LENS INSERTER.WATCH REPAIRER LABORATORY Final Re sult [facility] [address] [place] [address] from Last 3 Months Insurance [employer] [place] Care Teams Patient Companion Relationship Specialty Start Date End Date Evans Casas DO [address] [facility] [place] [address] PCP - General Family Medicine 01/30/22 Jonny Wilcox MD [address] [place] [address] Primary Staff Physician Cardiology 07/16/18 [place] [address] [place] [address] Physician Hematology/Oncology 09/14/21 Davida Restrepo, RN [address] [place] [address] Specialty Cable Television Installer Hematology/Oncology 09/14/21
--- OUTSIDE RECORDS SUMMARY | 2024-12-16 18:26 | XMS_ITS | Encounter Summary ---
Author Organization [facility] Address [address] [place] [address] Care Team Providers Care Production Illustrator Name Role Phone Evans Casas MD Primary Care Provider [phone] Encounter Details Date Type Department Care Team (Late Contact Info) Description 05/29/2024 Abstract NOMJaylan COLVIN [address] [facility] [place] [phone] Wilton Herrmann DO [address] [place] [address] Dr June [place], [facility]11 Social History Tobacco Use Types Packs/Day [...] 2:40 PM EDT Routine SHILOH COLVIN [address] [facility] [place] [phone] Wilton Herrmann DO [address] [facility] [address] [place] [id number] documented as of this encounter Visit Diagnoses Not on filedocumented in this encounter Care Teams Production Illustrator Relationship Specialty Start Date End Date Evans Casas MD [address] [place] [address] PCP - General Family Medicine 11/07/23 documented as of this encounter
--- OUTSIDE RECORDS SUMMARY | 2024-12-16 18:26 | XMS_ITS | Encounter Summary ---
Author Organization [facility] Address [address] [place] [address] Care Team Providers Care Singing Messenger Name Role Phone Evans Casas MD Primary Care Provider [phone] Encounter Details Date Type Department Care Team (Late Contact Info) Description 06/02/2024 Abstract NOMJaylan COLVIN [address] [place] [phone] Wilton Herrmann DO [address] [place] [address] Dr June [place], [facility]11 Social History Tobacco Use Types Packs/Day [...] 2:40 PM EDT Routine SHILOH COLVIN [address] [place] [phone] Wilton Herrmann DO [address] [facility] [address] [place] [phone] documented as of this encounter Visit Diagnoses Not on filedocumented in this encounter Care Teams Singing Messenger Relationship Specialty Start Date End Date Evans Casas MD [address] [place] [address] PCP - General Family Medicine 11/07/23 documented as of this encounter
--- OUTSIDE RECORDS SUMMARY | 2024-12-16 18:26 | XMS_ITS | Encounter Summary ---
Author Organization [facility] tem Address [id number] [address] [place] [address] Care Team Providers Care Valuer Name Role Phone Evans Casas DO Primary Care Provider [phone] Encounter Details Date Type Department Care Team (Late st Contact Info) Description 12/12/2024 Telephone Maternal- Medicine at [facility] [address] [place] [phone] Annita Kendall LD [address] [place] [address] Social History Tobacco Use Types Packs/Day Years [...] encounter Miscellaneous Notes * Telephone Encounter - PRISCILLA Sutherland - 12/12/2024 10:21 AM EDT Called Sanna back told her that I told Dr. Waggoner about her starting Lantus last night and her symptoms. He would like her to go up to 1000 mg of metformin in the evening and hold the Lantus for now. She is requesting that prescription be sent to her pharmacy. Discussed adding exercise after dinner and trying some higher fiber snacks paired with a protein in the evening. Continue to send in blood sugars weekly. Reminded Sanna that she has a follow-up appointment with Alisa Saba APRN 12/17/2024. Sanna verbalized understanding. documented in this encounter Plan of Treatment Upcoming Encounters Date Type Department Care Team (Late st Contact Info) Description 12/17/2024 1:30 PM EDT Telemedicine Maternal- Medicine at [facility] [address] [place] [phone] Alisa Saba, [facility] [address] [place] [address] 01/01/2025 1:00 PM EDT Appointment Maternal Medicine [place] [address] [phone] 01/01/2025 2:30 PM EDT Telemedicine Maternal Medicine [place] [address] [phone] Wilfrid Medina MD [address] [address] documented as of this encounter Visit Diagnoses Not on filedocumented in this encounter Care Teams Valuer Relationship Specialty Start Date End Date Evans Casas DO PCP - General Family Medicine 07/07/19 documented as of this encounter
--- OUTSIDE RECORDS SUMMARY | 2024-12-16 18:26 | XMS_ITS | Encounter Summary ---
Author Organization [facility] Address [address] [place] [address] Care Team Providers Care Detasseling Crew Supervisor Name Role Phone Evans Casas MD Primary Care Provider [phone] Encounter Details Date Type Department Care Team (Late Contact Info) Description 05/12/2024 Abstract NOMJaylan COLVIN [address] [place] [phone] Wilton Herrmann DO [address] [place] [address] Dr June [place], [facility]11 Social [...] COLVIN [address] [place] [phone] Wilton Herrmann DO [address] [facility] [address] [place] [phone] documented as of this encounter Visit Diagnoses Not on filedocumented in this encounter Care Teams Detasseling Crew Supervisor Relationship Specialty Start Date End Date Evans Casas MD [address] [place] [address] PCP - General Family Medicine 11/07/23 documented as of this encounter
--- OUTSIDE RECORDS SUMMARY | 2024-12-16 18:26 | XMS_ITS | Encounter Summary ---
Author Organization [facility] Address [address] [place] [address] Care Team Providers Care Gas Regulator Repairer Helper Name Role Phone Evans Casas MD Primary Care Provider [phone] Encounter Details Date Type Department Care Team (Late st Contact Info) Description 12/11/2024 Clinisync Result Encounter NOMS External Department Unsolicited Wilton Herrmann DO [address] [place], [place] [phone] Social History Tobacco Use Types Packs/Day Years [...] Description 01/05/2025 2:40 PM EDT Routine NOMJaylan Pickett OBGYN [address] [place] [phone] Wilton Herrmann DO [address] [place] [address] documented as of this encounter Procedures Procedure Name Priority Date/Time Associated Diagnosis Comments ALL THYROID STIM HORMONE Routine 12/11/2024 10:50 AM EDT documented in this encounter Results * ALL THYROID STIM HORMONE (12/11/2024 10:50 AM EDT) THYROID STIMULATING HORMONE 1.508 0.358 - 3.740 uIU/mL [facility] 12/11/2024 10:5 0 AM EDT 12/11/2024 10:51 AM EDT Narrative CLINISYNC - 12/11/2024 11:33 AM EDT us Wilton Montez DO CLINIS[facility]NC Final Result [facility] documented in this encounter Visit Diagnoses Not on filedocumented in this encounter Care Teams Gas Regulator Repairer Helper Relationship Specialty Start Date End Date Evans Casas MD [address] [place] [address] PCP - General Family Medicine 11/07/23 documented as of this encounter
--- OUTSIDE RECORDS SUMMARY | 2024-12-16 18:26 | XMS_ITS | Encounter Summary ---
Author Organization [facility] Address [address] [place] [address] Care Team Providers Care Electronic Funds Transfer Coordinator Name Role Phone Penelope Casas MD Primary Care Provider [phone] Encounter Details Date Type Department Care Team (Late st Contact Info) Description 05/10/2024 Clinisync Result Encounter NOMS External Department Unsolicited Mya Herrmann DO [address] [place] [address] Social History Tobacco Use Types Packs/Day Years [...] Routine NOMS Piyush OBGYN [address] [place] [phone] Mya Herrmann DO [address] [place] [address] documented as of this encounter Procedures Procedure [...] PM EST Narrative 05/10/2024 4:04 [place] [address] Ultrasound Report Signed Patient: MADHU RENDON MR#: [id number] : 1985 Acct:[id number] Age/Sex: 38 / F ADM Date: Loc: [facility] [address]: Mya Herrmann D.O. Ordering Physician: Mya Herrmann D.O. Date of Service: 05/10/24 Procedure(s): US pelvis Accession Number(s): [id number] cc: Mya Herrmann D.O.; PENELOPE CASAS [place] [id number] Patient Name: MADHU RENDON MRN: [facility]:[id number] date: 1985 Sex: F Assigned Patient Location: [facility] Current Patient Location: [facility] Accession/Order Number: [id number] Exam Date: 05/10/2024 14:36 Report Date: 05/10/2024 [...] Signed By: 05/10/24 1604 DD/ 01 TD/TT: Solvent Mixer: Procedure Note Radiology, Radiologist, MD - 05/10/2024 [place] [address] Ultrasound Report Signed Patient: MADHU RENDON SMR#: [id number] : 1985Acct:[id number] Age/Sex: 38 / FADM Date: Loc: [facility] 258-[address]: Mya Herrmann D.O. Ordering Physician: Mya Herrmann D.O. Date of Service: 05/10/24 Procedure(s): US pelvis Accession Number(s): [id number] cc: Mya Herrmann D.O.; PENELOPE CASAS [place] [id number] Patient Name: MADHU RENDON MRN: [id number] date: 1985 Sex: F Assigned Patient Location: [facility] Current Patient Location: [facility] Accession/Order Number: [id number] Exam Date: 05/10/2024 14:36 Report Date: 05/10/2024 [...] M.D. Signed By:05/10/24 1604 DD/ 160 TD/TT: Solvent Mixer: [facility] DO [facility] IMAGING Final Result * FACTOR V LEIDEN MUTATION (05/10/2024 8:44 AM EST) [facility] FACTOR V LEIDEN MUTATION Comment . [facility] Comment: Result: c.1601G>A (p.Mrp565Xva) - Not Detected This result is not associated with an increased risk for venous thromboembolism. See Additional Clinical Information and Comments. Additional Clinical Information: Venous thromboembolism is a multifactorial disease influenced by genetic, environmental, and circumstantial risk factors. The c.1601G>A (p. Kqm279Tmi) variant in the F5 gene, commonly referred [...] c.*97G>A variant and Factor V Leiden (PMID: 51485327). Additional risk factors include but are not [...] health care providers to discuss results at [phone] ([phone]). Test Details: Variant Analyzed: c.1601G>A (p. Gmh223Doe), referred to as Factor V Leiden Methods/Limitations: [...] developed and its performance characteristics determined by [employer]. It has not been cleared or approved by the Food and Drug Administration. References: Jomar Tian, Loren BLANDON, Thiago R, Solo WW, Jose JH; ACMG Professional Practice and Guidelines Committee. Addendum: [place] [employer] consensus statement on factor V Leiden mutation testing. Nisha Med. 2020Jul 02. doi: 10.1038/h44403-644-77666-o. PMID: 00741659. Naina POWERS. Factor V Leiden Thrombophilia. 1998September 10 (Updated 2017May 03). In: Emeterio MP, Radha HH, Clayton RA, et al., editors. Cassie(R) (Internet). [place] ([place]): [facility]; 8358-1650. Available from: https://www.ncbi.nlm.nih.gov/books/RRM6699/ Hudson Tian, Loren BLANDON, Trent X, Margarito B, Jo-Ann EB, Lena P, Rhiannon CS; ACMG Laboratory Crown Wheel Assembler Committee. Venous thromboembolism laboratory testing (factor V Leiden and factor II c.*97G>A), 2018 update: a technical standard of the [place] [employer] and Genomics (ACMG). Nisha Med. 2017;20(12):3968-5499. doi: 10.1038/q89645-134-4188-o. Epub 2017Feb 01. PMID: 32443900. [facility] REVIEWED BY Comment . [facility] Comment: Technical Component performed at [facility] Professional Component performed by: [employer] Rosa Isela Lee, Ph.D., [facility] Director, [employer] [address] [facility] Performed at: - [facility] [address] [facility], [place], [place] [id number] Mental Health Tech: Kolton Storm formerly [facility], Phone: [phone] 05/10/2024 8:44 AM EST 05/10/2024 8:52 AM EST Narrative CLINISYNC - 05/15/2024 2:08 PM EST us Mya Herrmann DO LAB BLOOD ORDERABLES Final Resul t [facility] * ALL MISCELLANEOUS TEST (05/10/2024 8:44 AM EST) Pathologist [facility] MISCELLANEOUS TEST COMMENT . [facility] Comment: Test Ordered: [id number] , ID Ab Cytomegalovirus (CMV) Ab, IgG [...] 0.9 - 1.1 Positive >1.1 Performed at: [address] [id number] Mental Health Tech: Dusty Miles PhD, Phone: [phone] Performed at: [address] [id number] Mental Health Tech: China Ching MD, Phone: [phone] 05/10/2024 8:44 AM EST 05/10/2024 10:27 AM EST Narrative CLINISYNC - 05/13/2024 3:11 PM EST [id number] , Infectious Disease Antibody Profile Mya Montez DO CLINISYNC Final Result Performing Organization Address [facility] Co de Phone Number [facility] * (ABNORMAL) TB ANTITHROMBIN ACTIVITY (05/10/2024 8:44 AM EST) Pathologist [facility] TB ANTITHROMBIN ACTIVITY 141(A) 75 - 135 % [facility] Comment: An elevated antithrombin activity is of no known clinical significance. Direct Xa inhibitor anticoagulants such as rivaroxaban, apixaban and edoxaban will lead to spuriously elevated antithrombin activity levels possibly masking a deficiency. Performed at: [address] [id number] Mental Health Tech: China Chign MD, Phone: [phone] 05/10/2024 8:44 AM EST 05/10/2024 8:52 AM EST Narrative CLINISYNC - 05/12/2024 2:08 PM EST Mya Montez DO CLINISYNC Final Result Performing Organization Address City/[facility]/ZIP Co de Phone Number [facility] * PROTEIN S-ANTIGEN (05/10/2024 8:44 AM EST) [facility] PROTEIN S, TOTAL 96 60 - 150 % [facility] Comment: This test was developed and its performance characteristics determined by [facility]. It has not been cleared or approved by the Food and Drug Administration. PROTEIN S, FREE 112 61 - 136 % [facility] 05/10/2024 8:44 AM EST 05/10/2024 9:48 AM EST Narrative CLINISYNC - 05/12/2024 2:08 PM EST [facility] LAB BLOOD ORDERABLES Final Resul t Performing Organization Address [facility] Co de Phone Number [facility] * PROTEIN C-FUNCTIONAL (05/10/2024 8:44 AM EST) [facility] PROTEIN C-FUNCTIONAL 166 73 - 180 % TB Comment: Performed at: [address] [id number] Mental Health Tech: China Ching MD, Phone: [phone] 05/10/2024 8:44 AM EST 05/10/2024 9:48 AM EST Narrative CLINISYNC - 05/12/2024 2:08 PM EST [facility] BLOOD ORDERABLES Final Resul t Performing Organization Address [facility] Phone Number [facility] * METRO HOMOCYSTEINE (05/10/2024 8:44 AM EST) [facility] HOMOCYST(E)INE 5.8 0.0 - 14.5 umol/L [facility] 05/10/2024 8:44 AM EST 05/10/2024 8:52 AM EST Narrative CLINISYNC - 05/11/2024 7:08 AM EST [facility] Final Result Performing Organization Address [facility] Phone Number [facility] * ALL IMMUNOGLOBULIN G (05/10/2024 8:44 AM EST) [facility] IMMUNOGLOBULIN G, QN 913 586 - 1602 mg/dL [facility] Comment: Performed at: [address] [id number] Mental Health Tech: Dusty Miles PhD, Phone: [phone] 05/10/2024 8:44 AM EST 05/10/2024 8:52 AM EST Narrative CLINISYNC - 05/11/2024 7:08 AM EST us Mya Montez DO CLINISYNC Final Result Performing Organization Address [facility] Co de Phone Number [facility] * ALL IMMUNOGLOBULIN M (05/10/2024 8:44 AM EST) [facility] IMMUNOGLOBULIN M, Q 177 26 - 217 mg/dL [facility] Comment: Performed at: [address] [id number] Mental Health Tech: Dusty Miles PhD, Phone: [phone] 05/10/2024 8:44 AM EST 05/10/2024 8:52 AM EST Narrative CLINISYNC - 05/11/2024 7:08 AM EST us Mya Montez DO CLINISYNC Final Result Performing Organization Address [facility] Co de Phone Number [facility] documented in this encounter Visit Diagnoses Not on filedocumented in this encounter Care Teams Electronic Funds Transfer Coordinator Relationship Specialty Start Date End Date Penelope Casas MD [address] [place] [address] PCP - General Family Medicine 11/07/23 documented as of this encounter
--- OUTSIDE RECORDS SUMMARY | 2024-12-16 18:26 | XMS_ITS | Encounter Summary ---
Author Organization [facility] tem Address [facility] [address] [place] [address] Care Team Providers Care Ec Teacher Name Role Phone Evans Casas DO Primary Care Provider [phone] Encounter Details Date Type Department Care Team (Late st Contact Info) Description 12/12/2024 Telephone Maternal- Medicine at [facility] [address] [place] [address] Annita Kendall LD [address] [place] [address] Social History Tobacco Use Types Packs/Day Years [...] Telephone Encounter - PRISCILLA Sutherland - 12/12/2024 9:05 AM EDT Called Sanna regarding blood sugars from -12/07/2024, asked if she had started insulin yet. She said that she started 4 units last night, felt okay initially but then she said that her heart rate went up in the 90's, she got short of breath, hot, dizzy and light headed. Throughout the night she had trouble sleeping, felt her heart rate go up, was hot and thirsty. She also moved her metformin to dinner time and said that her blood sugar was 146 mg/dL after dinner, which was higher than usual. Sanna is uncomfortable continuing insulin. She has note tried exercising after dinner and she has not tried higher fiber snacks in the evening. Oral Surgery Physician told her that I would relay her concerns to [facility] physician and get back to her. Obtained blood sugars for this week and will scan them into her chart. documented in this encounter Plan of Treatment Upcoming Encounters Date Type Department Care Team (Late st Contact Info) Description 12/17/2024 1:30 PM EDT Telemedicine Maternal- Medicine at [facility] [address] [place] [address] Alisa Saba, STEWARD/STEWARDESS-DIGITAL STRATEGY MANAGER [address] [place] [address] 01/01/2025 1:00 PM EDT Appointment Maternal Medicine [place] [address] [phone] 01/01/2025 2:30 PM EDT Telemedicine Maternal Medicine [place] [address] [phone] Wilfrid Medina MD [address] [address] documented as of this encounter Visit Diagnoses Not on filedocumented in this encounter Care Teams Ec Teacher Relationship Specialty Start Date End Date Evans Casas DO PCP - General Family Medicine 07/07/19 documented as of this encounter
--- OUTSIDE RECORDS SUMMARY | 2024-12-16 18:26 | XMS_ITS | Encounter Summary ---
Author Organization [facility] Address [address] [place] [address] Care Team Providers Care Verification Engineer Name Role Phone Evans Casas MD Primary Care Provider [phone] Encounter Details Date Type Department Care Team (Late st Contact Info) Description 12/12/2024 Telephone NOMS Piyush COLVIN [address] [place] [address] Ariane Joseph LPN [address] [facility] [place] [id number] Social History Tobacco Use Types Packs/Day Years [...] encounter Miscellaneous Notes * Telephone Encounter - Ariane Joseph LPN - 12/12/2024 12:05 PM EDT Hi, this is Sanna. Has my date is 1985I wanted to know because I got my thyroid labs done yesterday. I wanted to know if you guys got him back. I do not really know how to get into the portal. Just because my heart rate has been really high and it like went up to 107 after startingin insulin last night and I could not tell if it could be from the insulin or if it could maybe just see my thyroid. So if you could call me back, my phone number is [phone]. Thank you. I called pt back to let her know that we did get her TSH level back and it was within normal limitsand her increase in HR could be from the insulin. She states that she was having a lot of side effects from insulin. She called [facility] and they took her off of the insulin and doubled her metformin. documented in this encounter Plan of Treatment Upcoming Encounters Date Type Department Care Team (Late st Contact Info) Description 01/05/2025 2:40 PM EDT Routine [facility] Piyush OBGYN [address] [place] [phone] Wilton Herrmann DO [address] [facility] [place] [address] documented as of this encounter Visit Diagnoses Not on filedocumented in this encounter Care Teams Verification Engineer Relationship Specialty Start Date End Date Evans Casas MD [address] [place] [address] PCP - General Family Medicine 11/07/23 documented as of this encounter
--- OUTSIDE RECORDS SUMMARY | 2024-12-16 18:26 | XMS_ITS | Encounter Summary ---
Author Organization [facility] Address [address] [place] [place] [address] Care Team Providers Care Personal Shopper Name Role Phone Evans Casas MD Primary Care Provider [phone] Encounter Details Date Type Department Care Team (Late Contact Info) Description 09/01/2024 Abstract NOMJaylan COLVIN [address] [place] [phone] Wilton Herrmann DO [address] [place] [address] Dr [address] [place], [facility] Social History Tobacco Use Types [...] EDT Routine SHILOH COLVIN [address] [place] [phone] Wilton Herrmann DO [address] [facility] [address] [facility] [address] [place] [phone] documented as of this encounter Visit Diagnoses Not on filedocumented in this encounter Care Teams Personal Shopper Relationship Specialty Start Date End Date Evans Casas MD [address] [place] [address] PCP - General Family Medicine 11/07/23 documented as of this encounter
--- OUTSIDE RECORDS SUMMARY | 2024-12-16 18:26 | XMS_ITS | Encounter Summary ---
Author Organization [facility] Address [address] [place] [address] Care Team Providers Care Staff Training And Development Manager Name Role Phone Penelope Casas MD Primary Care Provider [phone] Encounter Details Date Type Department Care Team (Late st Contact Info) Description 05/10/2024 Clinisync Result Encounter NOMS External Department Unsolicited Mya Herrmann DO [address] [place] [address] Social History Tobacco Use Types Packs/Day Years [...] Routine [facility]ush OBGYN [address] [place] [phone] Mya Herrmann DO [address] [place] [address] documented as of this encounter Procedures Procedure [...] AM EST Narrative 05/10/2024 9:29 [place] [address] Ultrasound Report Signed Patient: SANNA RENDON MR#: [id number] : 1985 Acct:[id number] Age/Sex: 38 / F ADM Date: Loc: [facility] 258-[address]: Mya Herrmann D.O. Ordering Physician: Mya Herrmann D.O. Date of Service: 05/10/24 Procedure(s): US OB limited Accession Number(s): [id number] cc: Mya Herrmann D.O.; PENELOPE CASAS [place] [id number] Patient Name: SANNA RENDON MRN: [facility]:[id number] date: 1985 Sex: F Assigned Patient Location: [facility] Current Patient Location: [place] Accession/Order Number: [id number] Exam Date: 05/10/2024 08:30 Report Date: 05/10/2024 [...] M.D. Signed By: 05/10/24928 DD/ 5 TD/TT: Gem Setter: Procedure Note Radiology, Radiologist, MD - 05/10/2024 [place] [address] Ultrasound Report Signed Patient: SANNA RENDON SMR#: [id number] : 1985Acct:[id number] Age/Sex: 38 / FADM Date: Loc: [facility] 258-[address]: Mya Herrmann D.O. Ordering Physician: Mya Herrmann D.O. Date of Service: 05/10/24 Procedure(s): US OB limited Accession Number(s): [id number] cc: Mya Herrmann D.O.; PENELOPE CASAS [place] [address] Patient Name: SANNA RENDON MRN: [id number] date: 1985 Sex: F Assigned Patient Location: [facility] Current Patient Location: [place] Accession/Order Number: [id number] Exam Date: 05/10/2024 08:30 Report Date: 05/10/2024 [...] Riley M.D. Signed By:05/10/24928 DD/ 5 TD/TT: Gem Setter: Mya Montez DO IMG OB US PROCEDURES Final Resul t * MHPT FIBRINOGEN (05/10/2024 8:44 AM EST) FIBRINOGEN 391 200 - 400 mg/dL TBH 05/10/2024 8:44 AM EST 05/10/2024 8:52 AM EST Narrative CLIN[facility]YNC - 05/10/2024 9:35 AM EST Mya Montez DO CLINIS[facility] Final Result [facility] * [facility] APTT (05/10/2024 8:44 AM EST) PARTIAL THROMBOPLASTIN TIME 28.5 22.3 - 36.2 sec TB 05/10/2024 8:44 AM EST 05/10/2024 8:52 AM EST Narrative [facility]YNC - 05/10/2024 9:35 AM EST Mya Montez DO CLIN[facility]YNC Final Result [facility] * SRMCOH PROTHROMBIN TIME INR W/O [...] Mya Montez DO CLINISYNC Final Result [facility] documented in this encounter Visit Diagnoses Not on filedocumented in this encounter Care Teams Staff Training And Development Manager Relationship Specialty Start Date End Date Penelope Casas MD [address] [place] [address] PCP - General Family Medicine 11/07/23 documented as of this encounter
--- OUTSIDE RECORDS SUMMARY | 2024-12-16 18:26 | XMS_ITS | Encounter Summary ---
Author Organization [facility] Address [address] [place] [address] Care Team Providers Care Senior Scientist Name Role Phone Evans Casas MD Primary Care Provider [phone] Encounter Details Date Type Department Care Team (Late Contact Info) Description 05/19/2024 Abstract NOMJaylan COLVIN [address] [place] [phone] Wilton Herrmann DO [address] [place] [address] Dr June [place], [facility]11 Social History Tobacco Use Types [...] PM EDT Routine SHILOH COLVIN [address] [address] Wilton Herrmann DO [address] [facility] [address] [place] [phone] documented as of this encounter Visit Diagnoses Not on filedocumented in this encounter Care Teams Senior Scientist Relationship Specialty Start Date End Date Evans Casas MD [address] [place] [address] PCP - General Family Medicine 11/07/23 documented as of this encounter
--- OUTSIDE RECORDS SUMMARY | 2024-12-16 18:26 | XMS_ITS | Encounter Summary ---
Author Organization [facility] Address [address] [place] [address] Care Team Providers Care Computer Information Systems Professor Name Role Phone Humaira Gaviria MD Primary Care Provider [phone] Jonny Wilcox MD Unavailable [phone] Cosmo Elliott MD Unavailable [phone] Davida Restrepo RN Unavailable [phone] Evans Casas DO Primary Care Provider [phone] Source Comments In the event this information is protected by the Federal Confidentiality of Alcohol and Drug AbusePatient Records regulations: The Federal rules restrict any use of the information to criminally investigate or prosecute any alcohol or drug abuse patient.[facility] Encounter Details Date Type Department Care Team (Late st Contact Info) Description 02/02/2021 Patient Msg Referring Physician [address] [place] [phone] Provider, [facility]cf CONSULT TO INFECTIOUS DISEASE Social [...] N ot on file 04/07/2020 Data from: https://www.neighborhoodatlas.medicine.[facility].edu/. Last address used for calculation Not [...] Description 12/22/2024 1:15 PM EDT Office Visit [facility] [address] [place] [address] 8 week follow up lab 12/22/2024 1:30 PM EDT Visit (SP) Office Hematology/Oncology [address] [place] [address] 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, TOBACCO DRUMMER.COMPUTER AIDED DESIGN DESIGNER [address] [place] [address] 8 week follow up lab documented as of this encounter Visit Diagnoses Not on filedocumented in this encounter Care Teams Computer Information Systems Professor Relationship Specialty Start Date End Date Humaira Gaviria MD [address] [place] [address] PCP - General Internal Medicine 07/05/18 01/29/22 Evans Casas DO [address] [facility] [place] [address] PCP - General Family Medicine 01/30/22 Jonny Wilcox MD [address] [place] [address] Primary Staff Physician Cardiology 07/16/18 [place] [address] [place] [address] Physician Hematology/Oncology 09/14/21 Davida Restrepo, RN [address] [place] [address] Specialty Placer Miner Hematology/Oncology 09/14/21 documented as of this encounter
--- OUTSIDE RECORDS SUMMARY | 2024-12-16 18:26 | XMS_ITS | Encounter Summary ---
Author Organization [facility] Address [address] [place] [address] Care Team Providers Care Buttermaker Name Role Phone Humaira Gaviria (Historical) Primary Care Provi loyda Humaira Gaviria MD Primary Care Provider [phone] Jonny Wilcox MD Unavailable [phone] Jonny Wilcox MD Unavailable [phone] Cosmo Elliott MD Unavailable [phone] Davida eRstrepo RN Unavailable [phone] Evans Casas DO Primary Care Provider [phone] Source Comments In the event this information is protected by the Federal Confidentiality of Alcohol and Drug AbusePatient Records regulations: The Federal rules restrict any use of the information to criminally investigate or prosecute any alcohol or drug abuse patient.[facility] Encounter Details Date Type Department Care Team (Late st Contact Info) Description 05/01/2018 Patient Msg Endocrinology [address] [place] [address] Provider, Ccf Upcoming Endocrinology Appointment [...] Description 12/22/2024 1:15 PM EDT Office Visit [facility] [address] [place] [address] [place] [address] 8 week follow up lab 12/22/2024 1:30 PM EDT Visit (SP) Office Hematology/Oncology [address] [place] [address] Kahterine Caban APRN.MEAT CUTTING BLOCK REPAIRER [address] [place] [address] 8 week follow up lab documented as of this encounter Visit Diagnoses Not on filedocumented in this encounter Care Teams Buttermaker Relationship Specialty Start Date End Date Humaira Gaviria (Historical)MD [address] [place] [address] PCP - General Family Medicine 12/28/17 07/04/18 Humaira Gaviria MD [address] [place] [address] PCP - General Internal Medicine 07/05/18 01/29/22 Evans Casas DO [address] [facility] [place] [place] [address] PCP - General Family Medicine 01/30/22 Jonny Wilcox MD [address] [place] [address] Primary Staff Physician Cardiology 07/16/18 Jonny Wilcox MD [address] [place] [address] Primary Staff Physician Cardiology 07/16/18 [place] [address] [place] [address] Physician Hematology/Oncology 09/14/21 Davida Restrepo, RN [address] [place] [address] Specialty Tire Manager Hematology/Oncology 09/14/21 documented as of this encounter
--- OUTSIDE RECORDS SUMMARY | 2024-12-16 18:26 | XMS_ITS | Encounter Summary ---
Author Organization [facility] Address [address] [place] [address] Care Team Providers Care Director Of Physical Therapy Name Role Phone Evans Casas MD Primary Care Provider [phone] Encounter Details Date Type Department Care Team (Late Contact Info) Description 05/10/2024 Abstract [facility] Piyush COLVIN [address] [place] [address] Rosi Murray LPN Social History Tobacco [...] Upcoming Encounters Date Type Department Care Team ([facility] Contact Info) Description 01/05/2025 2:40 PM EDT Routine SHILOH COLVIN [address] [place] [address] Wilton Herrmann DO [address] [place] [address] documented as of this encounter Visit Diagnoses Not on filedocumented in this encounter Care Teams Director Of Physical Therapy Relationship Specialty Start Date End Date Evans Casas MD [address] [place] [address] PCP - General Family Medicine 11/07/23 documented as of this encounter
--- OUTSIDE RECORDS SUMMARY | 2024-12-16 18:26 | XMS_ITS | Encounter Summary ---
Author Organization [facility] Address [address] [place] [address] Care Team Providers Care Stoner Out Name Role Phone Evans Casas MD Primary Care Provider [phone] Encounter Details Date Type Department Care Team (Late Contact Info) Description 09/11/2024 Abstract [facility] Piyush COLVIN [address] [place] [address] Susie Ojeda SC Social History Tobacco Use Types Packs/Day Years [...] Upcoming Encounters Date Type Department Care Team ([facility] Contact Info) Description 01/05/2025 2:40 PM EDT Routine SHILOH COLVIN [address] [place] [address] Wilton Herrmann DO [address] [place] [address] documented as of this encounter Visit Diagnoses Not on filedocumented in this encounter Care Teams Stoner Out Relationship Specialty Start Date End Date Evans Casas MD [address] [place] [address] PCP - General Family Medicine 11/07/23 documented as of this encounter
--- OUTSIDE RECORDS SUMMARY | 2024-12-16 18:27 | XMS_ITS | Encounter Summary ---
Author Organization [facility] Address [address] [place] [address] Care Team Providers Care Plant Operations Worker Name Role Phone Evans Casas MD Primary Care Provider [phone] Encounter Details Date Type Department Care Team (Late Contact Info) Description 10/28/2024 Abstract NOMJaylan COLVIN [address] [place] [address] Wilton Herrmann DO [facility] [address], [facility]11 Social History Tobacco Use Types [...] EDT Routine SHILOH COLVIN [address] [place] [address] Wilton Herrmann DO [address] [place], [place] [phone] documented as of this encounter Visit Diagnoses Not on filedocumented in this encounter Care Teams Plant Operations Worker Relationship Specialty Start Date End Date Evans Casas MD [address] [facility] [place] [address] PCP - General Family Medicine 11/07/23 documented as of this encounter
--- OUTSIDE RECORDS SUMMARY | 2024-12-16 18:27 | XMS_ITS | Encounter Summary ---
Author Organization [facility] Address [address] [place] [address] Care Team Providers Care Carriage Rider Name Role Phone Evans Casas MD Primary Care Provider [phone] Encounter Details Date Type Department Care Team (Late Contact Info) Description 04/17/2024 Abstract NOMJaylan COLVIN [address] [facility] [place] [address] Wilton Herrmann DO [address] [place] [address] Dr June [address], [facility]11 Social History Tobacco Use Types [...] [address] [facility] [facility] [place] [address] Wilton Herrmann DO [address] [facility] [address] [place] [id number] documented as of this encounter Visit Diagnoses Not on filedocumented in this encounter Care Teams Carriage Rider Relationship Specialty Start Date End Date Evans Casas MD [address] [place] [address] PCP - General Family Medicine 11/07/23 documented as of this encounter
--- OUTSIDE RECORDS SUMMARY | 2024-12-16 18:27 | XMS_ITS | Encounter Summary ---
Author Organization [facility] Address [address] [facility] [place] [address] Care Team Providers Care Ion Exchange Operator Name Role Phone Evans Casas MD Primary Care Provider [phone] Encounter Details Date Type Department Care Team (Late Contact Info) Description 11/03/2024 Abstract [facility]S Piyush COLVIN [address] [place] [address] Susie Ojeda MA Social History Tobacco [...] 2:40 PM EDT Routine NOMJaylan COLVIN [address] [place] [address] Wilton Herrmann DO [address] [place] [place], [place] [address] documented as of this encounter Visit Diagnoses Not on filedocumented in this encounter Care Teams Ion Exchange Operator Relationship Specialty Start Date End Date Evans Casas MD [address] [place] [address] PCP - General Family Medicine 11/07/23 documented as of this encounter
--- OUTSIDE RECORDS SUMMARY | 2024-12-16 18:27 | XMS_ITS | Encounter Summary ---
Author Organization [facility] Address [address] [place] [address] Care Team Providers Care Timber Robber Name Role Phone Evans Casas MD Primary Care Provider [phone] Encounter Details Date Type Department Care Team (Late st Contact Info) Description 12/08/2024 Patient Outreach [facility] [address] [place] [phone] Petra Whitmore LPN [address] [place] [address] Social History Tobacco Use Types Packs/Day Years [...] Description 01/05/2025 2:40 PM EDT Routine NOMS Piysuh OBGYN [address] [address] Wilton Herrmann DO [address] [place] [address] documented as of this encounter Visit Diagnoses Not on filedocumented in this encounter Care Teams Timber Robber Relationship Specialty Start Date End Date Evans Casas MD [address] [place] [address] PCP - General Family Medicine 11/07/23 documented as of this encounter
--- OUTSIDE RECORDS SUMMARY | 2024-12-16 18:27 | XMS_ITS | Encounter Summary ---
Author Organization [facility] Address [address] [place] [address] Care Team Providers Care Baseball Coach Name Role Phone Evans Casas MD Primary Care Provider [phone] Encounter Details Date Type Department Care Team (Late Contact Info) Description 03/04/2024 Abstract NOMJaylan COLVIN [address] [place] [address] Wilton Herrmann DO [address] [place] [address] Dr [address] [place], [facility]11 Social History Tobacco Use Types [...] COLVIN [address] [place] [address] Wilton Herrmann DO [address] [facility] [address] [place] [id number] documented as of this encounter Visit Diagnoses Not on filedocumented in this encounter Care Teams Baseball Coach Relationship Specialty Start Date End Date Evans Casas MD [address] [place] [address] PCP - General Family Medicine 11/07/23 documented as of this encounter
--- OUTSIDE RECORDS SUMMARY | 2024-12-16 18:27 | XMS_ITS | Encounter Summary ---
Author Organization [facility] Address [address] [place] [address] Care Team Providers Care Spectrograph Operator Name Role Phone Evans Casas MD Primary Care Provider [phone] Encounter Details Date Type Department Care Team (Late Contact Info) Description 05/06/2024 Abstract NOMJaylan COLVIN [address] [facility] [place] [address] Wilton Herrmann DO [address] [place] [address] Dr June [address], [facility]11 Social History Tobacco Use Types Packs/Day [...] EDT Routine SHILOH COLVIN [address] [facility] [place] [address] Wilton Herrmann DO [address] [facility] [address] [place] [phone] documented as of this encounter Visit Diagnoses Not on filedocumented in this encounter Care Teams Spectrograph Operator Relationship Specialty Start Date End Date Evans Casas MD [address] [place] [address] PCP - General Family Medicine 11/07/23 documented as of this encounter
--- OUTSIDE RECORDS SUMMARY | 2024-12-16 18:27 | XMS_ITS | Encounter Summary ---
Author Organization [facility] Address [address] [facility] [place] [address] Care Team Providers Care Stone Paver Name Role Phone Evans Casas MD Primary Care Provider [phone] Encounter Details Date Type Department Care Team (Late Contact Info) Description 12/11/2024 Bamboo flowsheet NOMS Piyush COLVIN [address] [place] [address] Wilton Herrmann DO [facility] [address], [place] [address] Social History Tobacco Use Types Packs/Day Years [...] 2:40 PM EDT Routine NOMJaylan COLVIN [address] [place] [address] Wilton Herrmann DO [facility] [place] [address] documented as of this encounter Visit Diagnoses Not on filedocumented in this encounter Care Teams Stone Paver Relationship Specialty Start Date End Date Evans Casas MD [address] [place] [address] PCP - General Family Medicine 11/07/23 documented as of this encounter
--- OUTSIDE RECORDS SUMMARY | 2024-12-16 18:27 | XMS_ITS | Encounter Summary ---
Author Organization [facility] Address [address] [place] [address] Care Team Providers Care Auger Supervisor Name Role Phone Evans Casas MD Primary Care Provider [phone] Encounter Details Date Type Department Care Team (Late Contact Info) Description 05/07/2024 Abstract NOMJaylan COLVIN [address] [facility] [place] [address] Wilton Herrmann DO [address] [place] [address] Dr June [address]ett, [facility]11 Social [...] 2:40 PM EDT Routine SHILOH COLVIN [address] [facility] [place] [address] Wilton Herrmann DO [address] [facility] [address] [place] [phone] documented as of this encounter Visit Diagnoses Not on filedocumented in this encounter Care Teams Auger Supervisor Relationship Specialty Start Date End Date Evans Casas MD [address] [place] [address] PCP - General Family Medicine 11/07/23 documented as of this encounter
--- OUTSIDE RECORDS SUMMARY | 2024-12-16 18:27 | XMS_ITS | Encounter Summary ---
Author Organization [facility] [employer] [facility] tem Address [id number] [address] [place] [address] Care Team Providers Care Stranding Machine Operator Helper Name Role Phone Evans Casas DO Primary Care Provider [phone] Encounter Details Date Type Department Care Team (Late st Contact Info) Description 12/03/2024 Telephone Maternal- Medicine at [facility] [address] [place] [address] Anni Abreu CMA Social History [...] next appt in 2 week with an PIN GAME MACHINE INSPECTOR/PA. Left call back number and to press option 3 for scheduling. documented in this encounter Plan of Treatment Upcoming Encounters Date Type Department Care Team (Late st Contact Info) Description 12/17/2024 1:30 PM EDT Telemedicine Maternal- Medicine at [facility] [address] [place] [phone] Alisa Saba APRN-INSULATION MACHINE OPERATOR [address] [place] [address] 01/01/2025 1:00 PM EDT Appointment Maternal Medicine [place] [address] [address] 01/01/2025 2:30 PM EDT Telemedicine Maternal Medicine [place] [address] [address] Wilfrid Medina MD [address] [facility], [address] [place] [address] documented as of this encounter Visit Diagnoses Not on filedocumented in this encounter Care Teams Stranding Machine Operator Helper Relationship Specialty Start Date End Date Evans Casas DO PCP - General Family Medicine 07/07/19 documented as of this encounter
--- OUTSIDE RECORDS SUMMARY | 2024-12-16 18:27 | XMS_ITS | Encounter Summary ---
Author Organization [facility] Address [address] [facility] [place] [address] Care Team Providers Care Benefits Manager Name Role Phone Evans Casas MD Primary Care Provider [phone] Encounter Details Date Type Department Care Team (Late Contact Info) Description 01/10/2024 Abstract [facility]OMS Piyush COLVIN [address] [place] [address] Ariane Joseph LPN [address] [place] [phone] Social History Tobacco Use Types Packs/Day Years [...] 2:40 PM EDT Routine NOMJaylan COLVIN [address] [place] [address] Wilton Herrmann DO [address] [place] [address] documented as of this encounter Visit Diagnoses Not on filedocumented in this encounter Care Teams Benefits Manager Relationship Specialty Start Date End Date Evans Casas MD [address] [place] [address] PCP - General Family Medicine 11/07/23 documented as of this encounter
--- OUTSIDE RECORDS SUMMARY | 2024-12-16 18:27 | XMS_ITS ---
Author Organization [facility] Address [address] [place] [address] Care Team Providers Care Wireless Watcher Name Role Phone Evans Casas MD Primary Care Provider [phone] [facility] ([facility]) Status:Enrolled (Active) Start date:12/03/2024 Enrollment date:12/08/2024 Enrollment reason:Identified by Health Plan Case Team Name Relationship Phone Petra Whitmore LPN(Responsible Staff) Licensed [facility] Nurse [phone] Continued Care and Services Coordination
--- OUTSIDE RECORDS SUMMARY | 2024-12-16 18:27 | XMS_ITS | Clinical Summary ---
Author Organization [employer] tem Address [id number] [address] [place] [address] Care Team Providers Care Diploma Dental Assistant Name Role Phone Evans Casas DO Primary Care Provider [phone] Allergies Active Allergy Reactions Criticality Noted Date Comments Ciprofloxacin Dizziness 06/19/2019 Lactalbumin Other (See Comments) Low 05/25/2017 Other reaction(s): GI Upset Crampy and gassy Lactose GI Disturbance 09/10/2017 Diarrhea Milk Containing Products (Dairy) Other (See Comments) Low 05/25/2017 Crampy and gassy Medications 19 29 mg iron- 1 mg tablet,chewabl e Chew 1 tablet and swallow daily. 6 11/01/19 19 Active levothyroxine (SYNTHROID) 25 MCG tablet Take [...] total) by mouth in the morning. Active azithromycin (ZITHROMAX) 250 mg tablet Take 1 tablet (250 mg total) by mouth in the morning. Take 2 tablets the first day, then 1 tablet daily for 4 days. Active insulin glargine (LANTUS SOLOSTAR U-100 INSULIN) 100 unit/mL (3 mL) insulin pen Prime with 2 units then inject 4 units SQ into abd 15 mL 3 12/04/19 25 Active pen needle, diabetic (BD ULTRA-FINE ENID PEN NEEDLE) 32 gauge x 5/32 needle Use a new needle with each injection ( 1- 5 times per day) 100 each 3 12/04/19 25 Active metFORMIN XR (GLUCOPHAGE XR) 500 mg 24 hr tablet Take 500 mg in the morning and 1000 mg at night. 90 tablet 4 12/13/19 25 Active metFORMIN XR (GLUCOPHAGE XR) 500 mg 24 hr tablet Take 1 tablet (500 mg total) by mouth daily with breakfast. 025 Discontinued Active Problems Problem Noted Date Diagnosed Date [...] Encounters Date Type Department Care Team Description 12/12/2024 Orders Only Maternal- Medicine at [facility] [place] [place] [address] Star Waggoner MD 12/12/2024 Telephone Maternal- Medicine at [facility] [address] [place] [address] Annita Kendall, PRISCILLA 12/12/2024 Telephone Maternal- Medicine at [facility] [address] [facility] [place] [address] Annita Kendall, PRISCILLA 12/03/2024 2:00 PM EDT Telemedicine Maternal- Medicine at [place] [address] [place] [address] Alisa Saba, CLAY MOLDER-LICENSED LOAN OFFICER ASSISTANT Insulin controlled gestational diabetes mellitus (GDM) in second trimester (Primary Dx) 12/03/2024 Telephone Maternal- Medicine at [place] [address] [place] [address] Anni Abreu, ROSE 12/02/2024 Travel 11/19/2024 9:30 AM EDT Support Visit Maternal- Medicine at [place] [address] [place] [address] Lorena Enciso, RN Stephanie Quiros, Cindy Uribe, JERONIMO Gestational diabetes mellitus (GDM), antepartum, gestational diabetes method of control unspecified (Primary Dx) 11/19/2024 Travel 11/04/2024 Abstract Maternal- Medicine at [address] [address] Wilfrid Medina MD 11/04/2024 Orders Only Maternal- Medicine at [address] [address] Ref Prov, Not In System 11/04/2024 Abstract Maternal- Medicine at [address] [address] Wilfrid Medina MD 10/13/2024 Telephone Maternal- Medicine at [place] [address] [place] [address] Margo Khan RN 10/13/2024 Orders Only Maternal- Medicine at [facility] [address] [place] [address] Margo Khan RN Gestational diabetes mellitus (GDM), antepartum, gestational diabetes [...] Telemedicine Maternal- Medicine at [facility] [address] [place] [address] Alisa Saba, CLAY MOLDER-LICENSED LOAN OFFICER ASSISTANT [address] [place] [address] 01/01/2025 1:00 PM EDT Appointment [facility] [place] [address] [facility] [address] [place] [address] 01/01/2025 2:30 PM EDT Telemedicine [facility] [address] [facility] [address] [place] [address] Wilfrid Medina MD [address], [address] [place] [address] Health Maintenance Due Date Last Done Comments [...] * Glucose random or fasting- POCT (11/19/2024) Pathologist [facility] External Glucose Fasting Or Random (Fbs) 94 MANUALLY TRANSCRIBED RESULTS Blood Venous blood / Unknown 11/19/2024 us Star Waggoner MD LAB BLOOD ORDERABLES Final Re sult Performing Organization Address [facility] Co de Phone Number MANUALLY TRANSCRIBED RESULTS * TSH (10/28/2024) Only the most recent of2 resultswithin the time period is included. Pathologist [facility] Thyroid Stimulating (3Rd Generation) Hormone/ Tsh 1.25 MANUALLY TRANSCRIBED RESULTS Blood Venous blood / Unknown us Not In System Ref Prov LAB BLOOD ORDERABLES Obdulia l Result Performing Organization Address [facility] Co de Phone Number MANUALLY TRANSCRIBED RESULTS * Unlisted Lab Test (10/27/2024 9:43 AM EDT) us Wilton Herrmann DO LAB BLOOD ORDERABLES Final Resu lt Performing Organization Address [facility] Co de Phone Number MANUALLY TRANSCRIBED RESULTS * HIV 1&2 AB/AG Screen (P24 AG) (10/06/2024) Pathologist [facility] HIV 1&2 AB/AG Negative MANUAL LY TRANSCRIBED RESULTS Blood Venous blood / Unknown us Not In System Ref Prov LAB BLOOD ORDERABLES Obdulia l Result Performing Organization Address [facility] de Phone Number MANUALLY TRANSCRIBED RESULTS * Drug Screen, Urine (10/06/2024) Pathologist [facility] Ecstasy Negative MANUALLY TRANSCRIBED RESULTS Methadone Negative [...] Ref Prov URINE ORDERABLES Final Re sult MANUALLY TRANSCRIBED RESULTS * Hepatitis B surface antigen (10/06/2024) Hepatitis B Surface Antigen Negative MANUALLY TRANSCRIBED RESULTS Blood Venous blood / Unknown us Not In System Ref Prov LAB BLOOD ORDERABLES Obdulia l Result MANUALLY TRANSCRIBED RESULTS * Type and screen [...] TRANSCRIBED RESULTS from Last 3 Months Insurance [employer] Care Teams Diploma Dental Assistant Relationship Specialty Start Date End Date Evans Casas DO PCP - General Family Medicine 07/07/19
--- OUTSIDE RECORDS SUMMARY | 2024-12-16 18:27 | XMS_ITS | Encounter Summary ---
Author Organization [facility] Address [address] [place] [address] Care Team Providers Care Sheeter Waxer Operator Name Role Phone Evans Casas MD Primary Care Provider [phone] Encounter Details Date Type Department Care Team (Late Contact Info) Description 10/28/2024 Abstract [facility] [address] [place] [address] Wilton Herrmann DO [facility] [address] [place], [facility]11 Social History Tobacco Use Types [...] EDT Routine SHILOH [facility] [address] [place] [address] Wilton Herrmann DO [address] [place], [place] [id number] documented as of this encounter Visit Diagnoses Not on filedocumented in this encounter Care Teams Sheeter Waxer Operator Relationship Specialty Start Date End Date Evans Casas MD [address] [facility] [place] [address] PCP - General Family Medicine 11/07/23 documented as of this encounter
--- OUTSIDE RECORDS SUMMARY | 2024-12-16 18:27 | XMS_ITS | Encounter Summary ---
Author Organization [facility] Address [address] [place] [address] Care Team Providers Care Computer Language Coder Name Role Phone Evans Casas MD Primary Care Provider [phone] Encounter Details Date Type Department Care Team (Late Contact Info) Description 02/25/2024 Abstract [facility] [address] [facility] [place] [phone] Wilton Herrmann DO [address] [place] [address] Dr June [place], [facility]11 Social History Tobacco Use Types Packs/Day [...] 2:40 PM EDT Routine SHILOH COL[facility]IN [address] [place] [address] Wilton Herrmann DO [address] [facility] [address] [place] [id number] documented as of this encounter Visit Diagnoses Not on filedocumented in this encounter Care Teams Computer Language Coder Relationship Specialty Start Date End Date Evans Casas MD [address] [address] PCP - General Family Medicine 11/07/23 documented as of this encounter
--- OUTSIDE RECORDS SUMMARY | 2024-12-16 18:27 | XMS_ITS ---
Author Organization [facility] [facility] Source Produ ction (ClinicalSummary Clone) Address Unknown Care Team Providers Care Recreation Aide Name Role Phone Unavailable Primary Care Physician Unavailab le Results * [UNITY] ANEUPLOIDY NIPT Performed by: [id number] Component Value Range Date Fraction 4.8% 10/27/2024 11 :57 pm UTC Rh(D) NIPT RhD DETECTED 10/27/2024 11:5 7 pm UTC Sex Chromosome Aneuploidy NOT DETECTED 11:57 pm UTC Monosomy X LOW RISK <1 in 10,000 2024 11:57 pm UTC Trisomy 13 LOW RISK <1 in 10,000 2024 11:57 pm UTC Trisomy 18 LOW RISK <1 in 10,000 2024 11:57 pm UTC Trisomy 21 LOW RISK <1 in 10,000 2024 11:57 pm UTC Sex MALE 10/27/2024 11:5 7 pm UTC Gestation BRADY 10/28/19 11:57 pm UTC For detailed report, see PDF See PDF 10/27/2024 11:57 pm UTC 10/27/2024 11:5 7 pm UTC Social History Observation Value Start Date End Date
--- OUTSIDE RECORDS SUMMARY | 2024-12-16 18:27 | XMS_ITS | Encounter Summary ---
Author Organization [facility] Address [address] [place] [address] Care Team Providers Care Sfdc Technical Architect Name Role Phone Evans Casas MD Primary Care Provider [phone] Encounter Details Date Type Department Care Team (Late Contact Info) Description 11/15/2023 Abstract [facility] Steve Otolaryngology [address] [facility] [address] [place] [address] Sari Almeida MA Social History [...] OBGYN [address] [address] Wilton Herrmann DO [address] [place] [address] documented as of this encounter Visit Diagnoses Not on filedocumented in this encounter Care Teams Sfdc Technical Architect Relationship Specialty Start Date End Date Evans Casas MD [address] [place] [address] PCP - General Family Medicine 11/07/23 documented as of this encounter
--- OUTSIDE RECORDS SUMMARY | 2024-12-16 18:27 | XMS_ITS | Encounter Summary ---
Author Organization [facility] Address [address] [place] [address] Care Team Providers Care Mercury Washer Name Role Phone Evans Casas MD Primary Care Provider [phone] Encounter Details Date Type Department Care Team (Late Contact Info) Description 10/28/2024 Abstract [facility] [address] [place] [address] Wilton Herrmann DO [facility] [address] [place], [facility]11 Social History Tobacco Use Types Packs/Day [...] EDT Routine SHILOH COLVIN [address] [place] [address] Wilton Herrmann DO [address] [place], [place] [phone] documented as of this encounter Visit Diagnoses Not on filedocumented in this encounter Care Teams Mercury Washer Relationship Specialty Start Date End Date Evans Casas MD [address] [facility] [place] [address] PCP - General Family Medicine 11/07/23 documented as of this encounter
--- OUTSIDE RECORDS SUMMARY | 2024-12-16 18:27 | XMS_ITS | Encounter Summary ---
Author Organization [facility] Address [address] [place] [address] Care Team Providers Care Finished Cigar Maker Name Role Phone Evans Casas MD Primary Care Provider [phone] Encounter Details Date Type Department Care Team (Late Contact Info) Description 04/15/2024 Abstract [facility] [address] [facility] [place] [address] Wilton Herrmann DO [address] [place] [address] Dr June [place], [facility]11 Social History Tobacco Use Types [...] 2:40 PM EDT Routine SHILOH COLVIN [address] [facility] [place] [address] Wilton Herrmann DO [address] [facility] [address] [place] [id number] documented as of this encounter Visit Diagnoses Not on filedocumented in this encounter Care Teams Finished Cigar Maker Relationship Specialty Start Date End Date Evans Casas MD [address] [place] [address] PCP - General Family Medicine 11/07/23 documented as of this encounter
--- OUTSIDE RECORDS SUMMARY | 2024-12-16 18:27 | XMS_ITS | Encounter Summary ---
Author Organization [facility] Address [address] [place] [address] Care Team Providers Care Packer Sausage And Wiener Name Role Phone Penelope Casas MD Primary Care Provider [phone] Encounter Details Date Type Department Care Team (Late st Contact Info) Description 04/05/2024 Clinisync Result Encounter [facility] External Department Unsolicited Mya Herrmann DO [address] [place] [address] Social History Tobacco Use Types Packs/Day Years [...] Routine [facility] Piyush OBGYN [address] [place] [phone] Mya Herrmann DO [address] [place] [address] documented as of this encounter Procedures Procedure Name Priority Date/Time Associated Diagnosis Comments US OB TRANSVAGINAL 04/05/2024 4: 39 AM EST documented in this encounter Results * US OB TRANSVAGINAL (04/05/2024 4:39 AM EST) Anatomical Region Laterality Modality Other 04/05/2024 4:39 AM EST Narrative 04/05/2024 4:42 [place] [address] Ultrasound Report Signed Patient: Sanna Rendon MR#: [id number] : 1985 Acct:[id number] Age/Sex: 38 / F ADM Date: 04/04/24 Loc: [facility] Attending Dr: Mya Herrmann D.O. Ordering Physician: Mya Herrmann D.O. Date of Service: 04/04/24 Procedure(s): US OB transvaginal Accession Number(s): [id number] cc: Mya Herrmann D.O.; PENELOPE CASAS [place] [address] Patient Name: SANNA RENDON MRN: [id number] date: 1985 Sex: F Assigned Patient Location: [facility] Current Patient Location: Accession/Order Number: [id number] Exam Date: 04/04/2024 09:43 Report Date: 04/05/2024 [...] Signed By: 04/05/24 0442 DD/ 0439 TD/TT: T Rail Turner: Procedure Note Radiology, Radiologist, - 04/05/2024 [place] [address] Ultrasound Report Signed Patient: Sanna Rendon SMR#: [id number] : 1985Acct:[id number] Age/Sex: 38 / FADM Date: 04/04/24 Loc: [facility] Attending Dr: Mya Herrmann D.O. Ordering Physician: Mya Herrmann D.O. Date of Service: 04/04/24 Procedure(s): US OB transvaginal Accession Number(s): [id number] cc: Mya Herrmann D.O.; PENELOPE CASAS [place] [address] Patient Name: SANNA RENDON MRN: [id number] date: 1985 Sex: F Assigned Patient Location: [facility] Current Patient Location: Accession/Order Number: [id number] Exam Date: 04/04/2024 09:43 Report Date: 04/05/2024 [...] Pascual Riley M.D. Signed By:04/05/242 DD/ TD/TT: T Rail Turner: us Mya Montez DO [facility] Final Result documented in this encounter Visit Diagnoses Not on filedocumented in this encounter Care Teams Packer Sausage And Wiener Relationship Specialty Start Date End Date Penelope Casas MD [address] [place] [address] PCP - General Family Medicine 11/07/23 documented as of this encounter
--- OUTSIDE RECORDS SUMMARY | 2024-12-16 18:27 | XMS_ITS | Encounter Summary ---
Author Organization [facility] tem Address [id number] [address] [place] [address] Care Team Providers Care Consulting Practice Director Name Role Phone Evans Casas DO Primary Care Provider [phone] Encounter Details Date Type Department Care Team [...] 1:30 PM EDT Telemedicine Maternal- Medicine at [facility] [address] [place] [address] Alisa Saba, VICTOR HUGO-TOR [address] [place] [address] 01/01/2025 1:00 PM EDT Appointment Maternal Medicine [place] [address] [facility] [address] [place] [address] 01/01/2025 2:30 PM EDT Telemedicine Maternal Medicine [place] [address] [facility] [address] [place] [address] Wilfrid Medina MD [address] [facility], [address] [place] [address] documented as of this encounter Visit Diagnoses Not on filedocumented in this encounter Care Teams Consulting Practice Director Relationship Specialty Start Date End Date Evans Casas DO PCP - General Family Medicine 07/07/19 documented as of this encounter
--- OUTSIDE RECORDS SUMMARY | 2024-12-16 18:27 | XMS_ITS | Encounter Summary ---
Author Organization [facility] Address [address] [place] [address] Care Team Providers Care Scene Shifter Name Role Phone Evans Casas MD Primary Care Provider [phone] Encounter Details Date Type Department Care Team (Late Contact Info) Description 03/04/2024 Abstract [facility] [address] [facility] [place] [address] Wilton Herrmann DO [address] [place] [address] Dr [address] [place], [facility]11 Social History Tobacco Use Types Packs/Day [...] EDT Routine SHILOH COLVIN [address] [facility] [place] [address] Wilton Herrmann DO [address] [facility] [address] [place] [id number] documented as of this encounter Visit Diagnoses Not on filedocumented in this encounter Care Teams Scene Shifter Relationship Specialty Start Date End Date Evans Casas MD [address] [place] [address] PCP - General Family Medicine 11/07/23 documented as of this encounter
--- OUTSIDE RECORDS SUMMARY | 2024-12-16 18:27 | XMS_ITS | Encounter Summary ---
Author Organization [facility] Address [address] [place] [address] Care Team Providers Care Cooker Tender Name Role Phone Evans Casas MD Primary Care Provider Encounter Details Date Type Department Care Team (Late Contact Info) Description 10/02/2024 Abstract SHILOH COLVIN [address] [place] [address] Wilton Herrmann DO [facility] [address] [place], [facility]11 Social History Tobacco Use Types [...] EDT Routine SHILOH COLVIN [address] [place] [address] Wilton Herrmann DO [address] [place], [place] [address] documented as of this encounter Visit Diagnoses Not on filedocumented in this encounter Care Teams Cooker Tender Relationship Specialty Start Date End Date Evans Casas MD [address] [facility] [place] [address] PCP - General Family Medicine 11/07/23 documented as of this encounter
--- OUTSIDE RECORDS SUMMARY | 2024-12-16 18:27 | XMS_ITS | Encounter Summary ---
Author Organization [facility] Address [address] [place] [address] Care Team Providers Care Automotive Glass Installer Name Role Phone Evans Casas MD Primary Care Provider Encounter Details Date Type Department Care Team (Late Contact Info) Description 05/12/2024 Abstract [facility] [address] [facility] [place] [address] Wilton Herrmann DO [address] [place] [address] Dr June [place], [facility]11 Social History Tobacco Use Types Packs/Day [...] 2:40 PM EDT Routine SHILOH COLVIN [address] [facility] [place] [address] Wilton Herrmann DO [address] [facility] [address] [place] [phone] documented as of this encounter Visit Diagnoses Not on filedocumented in this encounter Care Teams Automotive Glass Installer Relationship Specialty Start Date End Date Evans Casas MD [address] [place] [address] PCP - General Family Medicine 11/07/23 documented as of this encounter
--- OUTSIDE RECORDS SUMMARY | 2024-12-16 18:27 | XMS_ITS | Encounter Summary ---
Author Organization [facility] Address [address] [place] [address] Care Team Providers Care Red Hat Linux Administrator Name Role Phone Evans Casas MD Primary Care Provider [phone] Encounter Details Date Type Department Care Team (Late Contact Info) Description 10/24/2024 Abstract SHILOH [facility]VIN [address] [place] [address] Wilton Herrmann DO [facility] [address] [place], [facility]11 Social History Tobacco Use Types Packs/Day Years [...] EDT Routine SHILOH COLVIN [address] [place] [address] Wilton Herrmann DO [address] [place], [place] [phone] documented as of this encounter Visit Diagnoses Not on filedocumented in this encounter Care Teams Red Hat Linux Administrator Relationship Specialty Start Date End Date Evans Casas MD [address] [place] [address] PCP - General Family Medicine 11/07/23 documented as of this encounter
--- OUTSIDE RECORDS SUMMARY | 2024-12-16 18:27 | XMS_ITS | Encounter Summary ---
Author Organization [facility] Address [address] [place] [address] Care Team Providers Care Commercial Litigation Paralegal Name Role Phone Evans Casas MD Primary Care Provider [phone] Encounter Details Date Type Department Care Team (Late st Contact Info) Description 12/04/2024 Abstract [facility] [address] [place] [phone] Petra Whitmore, DEB [address] [place] [address] Social History Tobacco Use Types Packs/Day Years [...] PM EDT Routine SHILOH [place] OBGYN [address] [place] [phone] Wilton Herrmann DO [address] [place] [address] documented as of this encounter Visit Diagnoses Not on filedocumented in this encounter Care Teams Commercial Litigation Paralegal Relationship Specialty Start Date End Date Evans Casas MD [address] [place] [address] PCP - General Family Medicine 11/07/23 documented as of this encounter
--- OUTSIDE RECORDS SUMMARY | 2024-12-16 18:27 | XMS_ITS | Encounter Summary ---
Author Organization [facility] Address [address] [address] [place] [address] Care Team Providers Care Vice President & General Manager [employer] Name Role Phone Evans Casas MD Primary Care Provider [phone] Encounter Details Date Type Department Care Team (Late Contact Info) Description 02/26/2024 Abstract [facility] [address] [facility] [place] [address] Wilton Herrmann DO [address] [place] [address] Dr June [place], [facility]11 Social History [...] SHILOH COLVIN [address] [facility] [place] [address] Wilton Herrmann DO [address] [facility] [address] [place] [id number] documented as of this encounter Visit Diagnoses Not on filedocumented in this encounter Care Teams Vice President & General Manager [employer] Relationship Specialty Start Date End Date Evans Casas MD [address] [place] [address] PCP - General Family Medicine 11/07/23 documented as of this encounter
--- OUTSIDE RECORDS SUMMARY | 2024-12-16 18:27 | XMS_ITS | Encounter Summary ---
Author Organization [facility] Address [address] [place] [address] Care Team Providers Care Construction Sales Representative Name Role Phone Evans Casas MD Primary Care Provider [phone] Encounter Details Date Type Department Care Team (Late Contact Info) Description 07/07/2024 Abstract [facility] [address] [facility] [place] [address] Wilton Herrmann DO [address] [place] [address] Dr June [place], [facility]11 Social [...] 2:40 PM EDT Routine SHILOH COLVIN [address] [facility] [place] [address] Wilton Herrmann DO [address] [facility] [address] [place], [place] [phone] documented as of this encounter Visit Diagnoses Not on filedocumented in this encounter Care Teams Construction Sales Representative Relationship Specialty Start Date End Date Evans Casas MD [address] [place] [address] PCP - General Family Medicine 11/07/23 documented as of this encounter
--- OUTSIDE RECORDS SUMMARY | 2024-12-16 18:27 | XMS_ITS | Encounter Summary ---
Author Organization [facility] [employer] [facility] tem Address [id number] [address] [place] [address] Care Team Providers Care Case Maker Name Role Phone Augusto Evans Tony DO Primary Care Provider [phone] Encounter Details Date Type Department Care Team (Late Contact Info) Description 11/04/2024 Orders Only Maternal- Medicine at [facility] [address] [place] [phone] Ref Prov, [place] [address] Social History Tobacco Use Types Packs/Day Years [...] 1:30 PM EDT Telemedicine Maternal- Medicine at [facility] [address] [place] [phone] Alisa Saba, ELECTRICIAN APPRENTICE POWERHOUSE-DEPUTY CLERK OF COURT [address] [place], [place] [phone] 01/01/2025 1:00 PM EDT Appointment Maternal Medicine [place] [address] [facility] [address] [place] [address] 01/01/2025 2:30 PM EDT Telemedicine Maternal Medicine [place] [address] [facility] [address] [place] [address] Wilfrid Medina MD [address] [facility], [address] [place] [address] documented as of this encounter Procedures Procedure Name Priority Date/Time Associated Diagnosis Comments UNLISTED LAB TEST Routine 10/27/2024 9:43 AM EDT documented in this encounter Results * Unlisted Lab Test (10/27/2024 9:43 AM EDT) us Wilton Herrmann DO LAB BLOOD ORDERABLES Final Resu lt MANUALLY TRANSCRIBED RESULTS documented in this encounter Visit Diagnoses Not on filedocumented in this encounter Care Teams Case Maker Relationship Specialty Start Date End Date Evans Casas DO PCP - General Family Medicine 07/07/19 documented as of this encounter
--- OUTSIDE RECORDS SUMMARY | 2024-12-16 18:27 | XMS_ITS | Encounter Summary ---
Author Organization [facility] Address [address] [place] [address] Care Team Providers Care Cutting Machine Offbearer Name Role Phone Evans Casas MD Primary Care Provider [phone] Encounter Details Date Type Department Care Team (Late Contact Info) Description 02/28/2024 Abstract NOMJaylan COLVIN [address] [place] [place] [phone] Wilton Herrmann DO [address] [place] [address] Dr June [place], [facility] Social History Tobacco Use Types Packs/Day Years [...] 2:40 PM EDT Routine SHILOH COLVIN [address] [place] [address] Wilton Herrmann DO [address] [place] [phone] documented as of this encounter Visit Diagnoses Not on filedocumented in this encounter Care Teams Cutting Machine Offbearer Relationship Specialty Start Date End Date Evans Casas MD [address] [place] [address] PCP - General Family Medicine 11/07/23 documented as of this encounter
--- OUTSIDE RECORDS SUMMARY | 2024-12-16 18:27 | XMS_ITS | Encounter Summary ---
Author Organization [facility] Address [address] [facility] [place] [address] Care Team Providers Care Glass Curvature Gauger Name Role Phone Evans Casas MD Primary Care Provider [phone] Encounter Details Date Type Department Care Team (Late Contact Info) Description 11/05/2024 Abstract NOMS Piyush COLVIN [address] [place] [address] Susie Ojeda MA Social History Tobacco [...] 2:40 PM EDT Routine NOMJaylan COLVIN [address] [place] [address] Wilton Herrmann DO [address] [place] [phone] documented as of this encounter Visit Diagnoses Not on filedocumented in this encounter Care Teams Glass Curvature Gauger Relationship Specialty Start Date End Date Evans Casas MD [address] [place] [address] PCP - General Family Medicine 11/07/23 documented as of this encounter
--- OUTSIDE RECORDS SUMMARY | 2024-12-16 18:27 | XMS_ITS | Clinical Summary ---
Author Organization [facility] Address [address] [place] [address] Care Team Providers Care Transit Police Officer Name Role Phone Evans Casas MD Primary Care Provider [phone] Allergies Active Allergy Reactions Criticality Noted Date [...] Prep Pad) 70 % padsIndications :Second trimester ([facility]),13 weeks gestation of ([facility]),Multi of advanced maternal age in second trimester ([facility]),Gesta tional diabetes mellitus (GDM), antepartum, gestational diabetes method of control unspecified ([facility]),Gilson aida glucose tolerance test Apply 1 Pad topically Daily Use four times daily to check FSBS. 150 each 3 5 Active Blood Glucose Monitoring Suppl ([employer] Glucometer) w/Device kitIndications: Second trimester ([facility]),13 weeks gestation of ([facility]),Multi of advanced maternal age in second trimester ([facility]),Gesta tional diabetes mellitus (GDM), antepartum, gestational diabetes method of control unspecified ([facility]),Gilson aida glucose tolerance test 1 kit Daily [...] Active Lancets Ultra Thin miscIndications :Second trimester ([facility]),13 weeks gestation of ([facility]),Multi of advanced maternal age in second trimester ([facility]),Gesta tional diabetes mellitus (GDM), antepartum, gestational diabetes method of control unspecified ([facility]),Gilson aida glucose tolerance test 1 each by In Vitro route Daily Use to check FSBS four times daily 150 each 3 5 025 Glucose Blood (Blood Glucose Test) stripIndication s:Second trimester ([facility]),13 weeks gestation of ([facility]),Multi of advanced maternal age in second trimester ([facility]),Gesta tional diabetes mellitus (GDM), antepartum, gestational diabetes method of control unspecified ([facility]),Gilson aida glucose tolerance test 1 strip by [...] 06/12/2023 Hematochezia 06/12/2023 Inhalation injury 06/12/2023 problem ([facility]) 06/12/2023 Psychogenic hyperventilation 06/12/2023 Suspected severe acute respi ratory syndrome coronavirus 2 (SARS-CoV-2) infection 06/12/2023 Hypoglycemia 06/12/2023 Primary hypercoagulable state ([facility]) 08/02/19 Gestational diabetes mellitu s (GDM) affecting ([facility]) 01/26/2022 Genitourinary symptoms 08/19/2021 Muscle fasciculation 08/19/2021 Anticoagulant long-term use 02/22/2020 Cerebrovascular accident (CV A) due to stenosis of middle cerebral artery 02/22/2020 Anemia complicating childbirth ([facility]) 020 First degree perineal laceration during delivery ([facility]) 01/16/2020 Acute posthemorrhagic anemia 01/16/2020 Other immediate hemorrhage ([facility]) 01/16/2020 Personal history of urinary (tract) infections 0 01/16/2020 Single live ([facility]) 01/15/2020 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 Pruritus, unspecified 01/02/2020 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) 12/30/2019 32 weeks gestation of ([facility]) 2019 Thrombocytopenia, unspecified 11/20/2019 Other general symptoms and signs 10/28/2019 Urinary tract infection 10/16/2019 Palpitations 08/26/2019 SVT (supraventricular tachycardia) 08/26/2019 Antiphospholipid antibody syndrome ([facility]) 12/2019 Other bacterial infections of unspecified site 0 06/27/2019 Less than 8 weeks gestation of ([facility]) 06/05/2019 Encounter for supervision of normal , unspecified, first trimester [facility] 05/29/2019 Cerebral infarction, unspecified 05/16/2019 Deficiency of other specified B group vitamins 0 05/16/2019 Hyponatremia 05/16/2019 Unspecified condition associ ated with female genital organs and menstrual cycle 05/09/2019 Other specified noninflammatory disorders of vag jaxson 02/21/2019 Frequency of micturition 02/19/2019 Unspecified ovarian cyst, right side 02/06/2019 Cervicalgia 02/05/2019 Coagulation defect, unspecified ([facility]) 2018 Dizziness and giddiness 02/05/2019 FCI (current) use of 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/antip latelets 02/05/2019 Other [...] Date Type Department Care Team Description 12/12/2024 Telephone [facility]OM[facility] Piyush COLVIN [email or web address] [address] Ariane Joseph LPN 12/12/2024 Patient Out[facility] [address] [place] [phone] Petra Whitmore LPN 12/11/2024 9:10 AM EDT Routine NOM[facility] Piyush COLVIN [address] [place] [address] Wilton Herrmann DO 19 weeks gestation of ([facility]); Second trimester ([facility]); Thyroid disease ; Multigravida of advanced maternal age in second trimester ([facility]); Gestational diabetes mellitus (GDM), antepartum, gestational diabetes method of control unspecified ([facility]) 12/11/2024 Clinisync Result Encounter NOMS External Department Unsolicited Wilton Herrmann 12/11/2024 Bamboo flowsheet [facility] [address] [place] [address] Wilton Herrmann, 12/08/2024 Patient Outreach [facility] [address] [place] [address] Petra Whitmore, MEDICAID BILLER 12/04/2024 Abstract [facility] [address] [place] [address] Petra Whitmore, MEDICAID BILLER 11/27/2024 Telephone [facility] [address] [place] [address] Wilton Herrmann, DO 11/21/2024 Telephone [facility] [address] [place] [address] Lala Hess [place] 11/20/2024 10:10 AM EDT Routine [facility] [place] [facility] [address] [place] [address] Wilton Herrmann, Second trimester ([facility]); 16 weeks gestation of ([facility]); Screening, , for anatomic survey ([facility]); Vaginal discharge; Sinus headache 11/20/2024 Bamboo flowsheet [facility] [place] [facility] [address] [place] [address] Wilton Herrmann, 11/05/2024 Abstract [facility] [address] [place] [address] Susie Ojeda MA 11/03/2024 Abstract [facility] [address] [place] [address] Susie Ojeda MA 10/30/2024 9:30 AM EDT Routine [facility] [place] [facility] [address] [place] [address] Witlon Herrmann, DO Second trimester ([facility]); 13 weeks gestation of ([facility]); Thyroid disease ; Multigravida of advanced maternal age in second trimester ([facility]); Gestational diabetes mellitus (GDM), antepartum, gestational diabetes method of control unspecified ([facility]); Elevated glucose tolerance test 10/30/2024 Bamboo flowsheet [facility] [address] [facility] [place] [address] Wilton Herrmann, DO 10/28/2024 Abstract [facility] [address] [facility] [place] [address] Wilton Herrmann, DO 10/28/2024 Abstract [facility] [address] [facility] [place] [address] Wilton Herrmann, DO 10/28/2024 Abstract [facility] [address] [facility] [place] [address] Wilton Herrmann, DO 10/24/2024 Abstract [facility] [address] [place] [address] [place] [address] Wilton Herrmann, DO 10/20/2024 1:00 PM EDT Ancillary Procedure [facility] Piyush [facility] [address] [place] [address] History of miscarriage 10/09/2024 Telephone [facility] [address] [place] [address] Rosi Murray LPN 10/06/2024 Telephone [facility] [address] [place] [address] [place] [address] Susie Ojeda MA 10/06/2024 Clinisync Result Encounter NOMS External Department Unsolicited Wilton Herrmann, DO 10/02/2024 1:00 PM EDT Initial [facility] [place] [address] GA: 9w3d 10/02/2024 Abstract [facility] P[facility]ush [place] [address] Wilton Herrmann, DO 10/01/2024 Telephone [facility] [place] [address] Wilton Herrmann, DO 09/18/2024 Refill [facility] P[facility]ush [facility] [place] [address] Ariane Joseph LPN History of miscarriage; Insulin resistance from Last 3 Months Family History Medical [...] PM EDT Routine [facility] [address] [facility] [place] [address] Wilton Herrmann, [address] [place] [address] Health Maintenance Due Date Last Done Comments HPV/Cotest 10/22/2015 Influenza Vaccine (#1) 2024 Cervical Cancer Screening 02/14/2025 Pap Smear 02/14/2025 02/14/2022 Procedures Procedure Name Priority Date/Time Associated Diagnosis Comments ALL THYROID STIM HORMONE Routine 12/11/2024 10:50 AM EDT POCT URINALYSIS DIPSTICK Routine 12/11/2024 9:36 AM EDT 19 weeks gestation of ([facility]) Second trimester ([facility]) RECURRENT VAGINITIS (HTRX) Routine 11/20/2024 12:08 PM EDT POCT URINALYSIS DIPSTICK Routine 11/20/2024 11:08 AM EDT 16 weeks gestation of ([facility]) CULTURE, URINE, ROUTINE Routine 10/30/2024 10:51 AM EDT Missed menses POCT URINALYSIS DIPSTICK Routine 10/30/2024 9:41 AM EDT Second trimester ([facility]) OB TRANSVAGINAL Routine 10/20/2024 1: 28 PM [...] Routine 10/02/2024 2:10 PM EDT Missed menses PAP SMEAR Routine 02/14/2022 12:00 AM EDT from Last 3 Months or Most Recently Relevant to Health Maintenance Results * ALL THYROID STIM HORMONE (12/11/2024 10:50 AM EDT) Only the most recent of2 resultswithin the time period is included. THYROID STIMULATING HORMONE 1.508 0.358 - 3.740 uIU/mL [facility] 12/11/2024 10:5 0 AM EDT 12/11/2024 10:51 AM EDT Narrative [facility] - 12/11/2024 11:33 AM EDT Wilton Herrmann DO [facility] Final Result [facility] * POCT urinalysis dipstick manually resulted (12/11/2024 9:36 AM EDT) Only the most recent of4 resultswithin the time period is included. Pathologist [facility] Color, UA Yellow Clarity, UA Clear Glucose, [...] Positive Urine 12/11/2024 9:36 AM EDT Wilton Montez DO POINT OF CARE TEST ENTER/EDIT OR DERABLES Final Result * (ABNORMAL) RECURRENT VAGINITIS (HTRX) (11/20/2024 12:08 PM EDT) Pathologist [facility] ATOPOBIUM VAGINAE 0 19.961 - 24.689 ppm [...] at [facility] MEGASPHAERA (TYPES 1, 2) Not Detected 19.961 - 24.689 ppm 11/21/2024 6:55 AM EDT [facility] at [facility] NEISSERIA GONORRHOEAE 0 23.000 - 32.587 ppm 11/21/2024 6:55 AM EDT [facility] at [facility] NEISSERIA GONORRHOEAE Not Detected 23.000 - 32.587 ppm 11/21/2024 6:55 AM EDT [facility] at [facility] TRICHOMONAS VAGINALIS 0 23.000 - 31.995 ppm 11/21/2024 6:55 AM EDT [facility] TRICHOMONAS VAGINALIS Not Detected 23.000 - 31.995 ppm 11/21/2024 6:55 AM EDT [facility] MYCOPLASMA GENITALIUM 0 19.961 - 24.689 ppm 11/21/2024 6:55 AM EDT [facility] MYCOPLASMA GENITALIUM Not Detected 19.961 - 24.689 ppm 11/21/2024 6:55 AM EDT [facility] Tissue 11/20/2024 12:0 8 PM EDT 11/21/2024 2:30 AM EDT [facility] DO LAB BLOOD ORDERABLES Final Resul t Performing Organization Address City/[facility] Co de Phone Number [facility] [place] [address] * Urine culture (10/30/2024 10:51 AM EDT) Urine Urine specimen obtained by clean catch procedure / Unknown [facility] DO LAB MICROBIOLOGY - GENERAL ORDER [place] Final Result Performing Organization Address City/[facility] Co de Phone Number EXTERNAL LAB * US OB transvaginal (10/20/2024 [...] II, MD, PHD at 21-Oct-2024 08:31:21 AM [facility] Procedure Note Carlos Ahmadi MD - 2024 EXAM: US OB TRANSVAGINAL [...] signed by CARLOS AHMADI II, MD, PHD [id number] 08:31:21 AM [facility] us Wilton Montez DO IM OB US PROCEDURES Final Resul t * BOX TEST (10/06/2024 10:19 AM EDT) BOX TEST SENT OUT [facility] BOX1 [facility] BOX2 10/06/24 [facility] 10/06/2024 10:1 9 AM EDT 10/06/2024 10:33 AM EDT Narrative [facility] - 10/06/2024 10:34 AM EDT [facility] Wilton Montez DO LAB BLOOD ORDERABLES Final Resul t Performing Organization Address City/[facility]/ZIP Co de Phone Number [facility] * HBSAG SCREEN (10/06/2024 10:19 AM EDT) Pathologist [facility] HBSAG SCREEN Negative Negative [facility] Comment: Performed at: [address] [id number] Machine Former: Dusty Miles PhD, Phone: [phone] 10/06/2024 10:1 9 AM EDT 10/06/2024 12:31 PM EDT [facility] 10/07/2024 12:08 PM EDT Wilton Montez LAB BLOOD ORDERABLES Final Resul t Performing Organization Address City/[facility]/ZIP Co de Phone Number [facility] * RAPID PLASMA REAGIN, QUANT (10/06/2024 10:19 AM EDT) [facility] RAPID PLASMA REAGIN, QUANT Non Reactive NonRea<1: 1 titer [facility] Comment: Please Note: This test does not meet current guidelines for screening and diagnosis of syphilis. This test is intended for following treatment response in patients being treated for syphilis infection. To screen for syphilis infection, a reflex cascade that includes both RPR and a treponema-specific assay should be utilized, such as Treponema pallidum (Syphilis) Screening [place] (941020) or Rapid Plasma Reagin (RPR) Test With Reflex to Quantitative RPR and Confirmatory Treponema pallidum Antibodies ([id number]). Performed at: [address] [id number] Machine Former: Dusty Miles PhD, Phone: [phone] 10/06/2024 10:1 9 AM EDT 10/06/2024 12:31 PM EDT Narrative [facility] - 10/07/2024 12:08 PM EDT us Wilton Montez DO LAB BLOOD ORDERABLES Final Resul t Performing Organization Address [facility] Co de Phone Number [facility] * HIV AB/P24 AG WITH REFLEX (10/06/2024 10:19 AM EDT) Pathologist [facility] HIV AB/P24 AG SCREEN Non Reactive Non Reactive [facility] Comment: HIV-1/HIV-2 antibodies and HIV-1 p24 antigen were NOT detected. There is no laboratory evidence of HIV infection. HIV Negative Performed at: [address] [id number] Machine Former: Dusty Miles PhD, Phone: [phone] 10/06/2024 10:1 9 AM EDT 10/06/2024 12:31 PM EDT Narrative [facility] - 10/07/2024 5:07 AM EDT us Wilton Montez DO LAB BLOOD ORDERABLES Final Resul t Performing Organization Address [facility] de Phone Number [facility] * HCV ANTIBODY RFX TO QUANT PCR (10/06/2024 10:19 AM EDT) Pathologist [facility] HCV AB Non Reactive Non Reactive [facility] INTERPRETATION: Comment . TB Comment: Not infected with HCV unless early or acute infection is suspected (which may be delayed in an immunocompromised individual), or other evidence exists to indicate HCV infection. Performed at: [address] [id number] Machine Former: Dusty Miles PhD, Phone: [phone] 10/06/2024 10:1 9 AM EDT 10/06/2024 12:31 PM EDT Narrative [facility] - 10/07/2024 10:08 AM EDT us Wilton Montez DO LAB BLOOD ORDERABLES Final Resul t Performing Organization Address [facility] Co de Phone Number [facility] * MLR HEMOGLOBIN A1C (10/06/2024 10:19 AM EDT) Pathologist [facility] GLYCOHEMOGLOBIN A1C 5.9 4.5 - 6.2 % [facility] Comment: ADA RECOMMENDED LIMIT 4.0 - 6.0 ADA THERAPEUTIC TARGET < 7.0 ACTION SUGGESTED > 7.0 ESTIMATED AVERAGE GLUCOSE 123 mg/dL [facility] 10/06/2024 10:1 9 AM EDT 10/06/2024 12:16 PM EDT Narrative [facility] - 10/06/2024 12:16 PM EDT Wiltoncarmen Quinno DO CLINISYNC Final Result [facility] * ALL TYPE AND SCREEN (10/06/2024 10:19 AM EDT) Pathologist [facility] BLOOD TYPE B Negative TB ANTIBODY SCREEN NEGATIVE [facility] 10/06/2024 10:1 9 AM EDT 10/06/2024 10:35 AM EDT Narrative [facility] - 10/06/2024 11:04 AM EDT [facility] , Wilton Herrmann DO CLINISYNC Final Result [facility] * (ABNORMAL) ALL RUBELLA IGG AB (10/06/2024 10:19 AM EDT) [facility] RUBELLA ANTIBODIES, IGG <0.90(A) Immune >0.99 index TB Comment: Non-immune <0.90 Equivocal 0.90 - 0.99 Immune >0.99 Performed at: [facility] [id number] Machine Former: Dusty Miles PhD, Phone: [phone] 10/06/2024 10:1 9 AM EDT 10/06/2024 12:31 PM EDT Narrative [facility] - 10/07/2024 10:08 AM EDT Wilton Herrmann DO CLINIS[facility]NC Final Result [facility] * (ABNORMAL) ALL CBC WITH AUTO DIFF (10/06/2024 10:19 AM EDT) [facility] WBC 8.9 4.0 - 11.0 10 [...] Narrative [facility] - 10/06/2024 10:32 AM EDT Wilton Montez DO CLINISYNC Final Result Performing Organization Address City/[facility]/ZIP Co de Phone Number [facility] * [facility] DRUG SCREEN RAPID (URINE) (10/06/2024 9:54 AM [...] Narrative [facility] - 10/06/2024 10:48 AM EDT Wilton Quinno DO [facility] Final [facility] * (ABNORMAL) POCT , urine manually resulted (10/02/2024 2:10 PM EDT) Preg Test, Ur Positive Negative Urine 10/02/2024 2:10 PM EDT Wilton Quinno DO POINT OF CARE TEST ENTER/EDIT OR DERABLES Final Result * Pap Smear (02/14/2022 12:00 AM EDT) Swab Cervical swab / Unknown Montez Nurse [facility] Ob LAB CYTOLOGY ORDERABLES Final Result EXTERNAL LAB from Last 3 Months or Most Recently Relevant to Health Maintenance Insurance [employer] MEDICAID [place] Care Teams Transit Police Officer Relationship Specialty Start Date End Date Evans Casas MD [address] [place] [address] PCP - General Family Medicine 11/07/23
--- OUTSIDE RECORDS SUMMARY | 2024-12-16 18:27 | XMS_ITS | Encounter Summary ---
Author Organization [facility] Address [address] [place] [address] Care Team Providers Care Graining Press Operator Name Role Phone Evans Casas MD Primary Care Provider [phone] Encounter Details Date Type Department Care Team (Late Contact Info) Description 04/15/2024 Abstract NOMJaylan COLVIN [address] [place] [address] Wilton Herrmann DO [address] [place] [address] Dr [place], [id number] Social History Tobacco Use Types Packs/Day Years [...] 2:40 PM EDT Routine SHILOH [facility]VIN [address] [place] [phone] Wilton Herrmann DO [address] [facility] [address] [place] [id number] documented as of this encounter Visit Diagnoses Not on filedocumented in this encounter Care Teams Graining Press Operator Relationship Specialty Start Date End Date Evans Casas MD [address] [place] [address] PCP - General Family Medicine 11/07/23 documented as of this encounter
--- OUTSIDE RECORDS SUMMARY | 2024-12-16 18:31 | XMS_ITS | CCD ---
Author Organization [facility] CliniSyct Care Team Providers Care Materials Branch Chief Name Role Phone CROW MONGE Unavailable Unavailable BIBI CHRISTY Unavailable Unavailable ERIKA LONDON Attending Unavailab ERIKA Haddad Referring Unavailab Haseeb Chavez Attending Unavailable Crow Monge Referring Unavailable Humaira Gaviria MD Primary Care Provider Jonny Wilcox MD Unavailable Penelope CASAS Primary Care Physician Cheri Norwood Unavailable Unavailable Cosmo Elliott MD Unavailable Lauro RN, Davida Unavailable Penelope Casas Primary Care Provider [phone] PENELOPE CASAS Primary Care Unavailable PERVÍCTOR, TOD C Referring Unavailable Humaira Gaviria MD Primary Care Provider Jonny Wilcox MD Unavailable Cosmo Elliott MD R Unavailable [phone] Lauro RN, Davida Unavailable Penelope Casas DO Primary Care Provider Jonny Wilcox MD P Unavailable Cosmo Elliott MD R Unavailable Lauro RN, Davida Unavailable Penelope Casas DO Primary Care Provider DR WILTON HERRMANN Primary Care Unavailable MONTEZ, DR ROQUE Admitting Unavailable MONTEZ, DR ROQUE Attending Unavailable KARASIK, DR ACUNA Consulting Unavailable KARASIK, DR ACUNA Admitting Unavailable KARASIK, DR ACUNA Attending Unavailable MONTEZ, DR ROQUE Primary Care Unavailable MONTEZ, DR ROQUE Consulting Unavailable ZIEBER, DR HUMERA Palmer Consulting Unavailable MONTEZ, DR ROQUE Admitting Unavailable MONTEZ, DR ROQUE Attending Unavailable MONTEZ, DR ROQUE Primary Care Unavailable PASAD[place], DR ANGIE Luna Consulting Unavailable MONTEZ, DR ROQUE Consulting Unavailable MONTEZ, DR ROQUE Admitting Unavailable MONTEZ, DR ROQUE Primary Care Unavailable MONTEZ, DR ROQUE Consulting Unavailable MONTEZ, DR ROQUE Attending Unavailable MONTEZ, DR ROQUE Admitting Unavailable MONTEZ, DR ROQUE Consulting Unavailable MONTEZ, DR ROQUE Attending Unavailable MONTEZ, DR ROQUE Primary Care Unavailable MONTEZ, DR ROQUE Admitting Unavailable KARASIK, DR ACUNA Consulting Unavailable MOTNEZ, DR ROQUE Primary Care Unavailable MONTEZ, DR [...] MONTEZ, DR ROQUE Consulting Unavailable MONTEZ, DR ROQEU Attending Unavailable MONTEZ, DR RQOUE Admitting Unavailable MONTEZ, DR ROQUE Consulting Unavailable [...] Unavailable Brenden ROSARIO, Jonny Tsai Unavailable Lauro RN, Davida Unavailable [phone] Penelope Casas DO Primary Care Provider Penelope CASAS Admitting Unavailable KAPANNA, Penelope Tony Attending Unavailable KAPANNA, Penelope Tony Admitting Unavailable KAPANNA, Penelope Tony Attending Unavailable Benny Uribe Attending Unavailable NELI DUNHAM Attending Unavailbrandon e Hal, Taylor Varela Attending Unavailable HalTaylor mcrae Attending Unavailable KAPANNA, Penelope Tony Attending Unavailable KAPANNA, Penelope Tony Attending Unavailable KAPANNA, Penelope Tony Attending Unavailable KAPANNA, Penelope Tony Attending Unavailable KAPANNA, Penelope Tony Attending Unavailable KAPANNA, Penelope Tony Attending Unavailable Lourdes Garber Attending Unavailab le Penelope CASAS Attending Unavailable Monica Saba Admitting Unavailable Monica Saba Attending Unavailable Monica Saba Referring Unavailable CROW MONGE Consulting Unavailable MD CROW MONGE Consulting Unavailable Lourdes Garber Attending Unavailab Monica Escobar Admitting Unavailable Monica Saba Attending Unavailable Monica Saba Referring Unavailable Benny Uribe Attending Unavailable Penelope CASAS Attending Unavailable Monica Saba Attending Unavailable KAPPenelope CONTRERAS Admitting Unavailable KAPPenelope CONTRERAS Attending Unavailable MONTEZ, Wilton R Attending Unavailable MONTEZ, Wilton R Admitting Unavailable MONTEZ, Wilton R Attending Unavailable MONTEZ, Wilton R Admitting Unavailable MONTEZ, Wilton R Attending Unavailable MONTEZ, Wilton R Attending Unavailable MONTEZ, Wilton R Admitting Unavailable MONTEZ, Wilton R Attending Unavailable MONTEZ, Wilton R Admitting Unavailable MONTEZ, Wilton R Attending Unavailable MONTEZ, Wilton R Admitting Unavailable Penelope Casas MD Primary Care Provider Wilton Herrmann DO Attending Provider Montez, Wilton Attending Unavailable Montez, Wilton Admitting Unavailable Gudimella, Anni Attending Unavailable Gudimella, Anni Attending Unavailable KAPLE, Penelope A Attending Unavailable KAPLE, Penelope A Attending Unavailable MONTEZ, Wilton R Admitting Unavailable MONTEZ, Wilton R Attending Unavailable KAPLE, Penelope A Admitting Unavailable KAPLE, Penelope A Attending Unavailable KAPLE, Penelope A Attending Unavailable KAPLE, Penelope A Attending Unavailable MONTEZ, Wilton R Admitting Unavailable MONTEZ, Wilton R Attending Unavailable BLAKE, ABI A Attending Unavailable MONTEZ, Wilton R Attending Unavailable MONTEZ, Wilton R Admitting Unavailable MONTEZ, Wilton R Admitting Unavailable MONTEZ, Wilton R Attending Unavailable Inez Wakefield Attending Unavailable Ashu, Inez Guzman Admitting Unavailable Visci, Farhat Tony Attending Unavailable Visci, Farhat Tony Admitting Unavailable Inez Wakefield Attending Unavailable Inez Wakefield Admitting Unavailable MONTEZ, Wilton R Attending Unavailable MONTEZ, Wilton R Admitting Unavailable Romulo Chiu Attending Unavailable KAPLEPenelope A Attending Unavailable MONTEZ, Wilton R Attending Unavailable MONTEZ, Wilton R Admitting Unavailable JESSICA BACA Attending Unavailabl e Inez Wakefield Attending Unavailable KAPPenelope CONTRERAS Attending Unavailable Kapanna DO Penelope A Primary Care Provider [phone] ABHYANKAR, KRISTOFER Referring Unavailable ABHYANKAR, KRISTOFER Attending Unavailable KAPLE, PENELOPE A Primary Care Unavailable KAPLE, PENELOPE A Primary Care Unavailable ABHYANKAR, KRISTOFER Referring Unavailable KATHERINE NEGRETE Attending Unavailable KAPLE, PENELOPE A Primary Care Unavailable ABHYANKAR, KRISTOFER Referring Unavailable KAPLE, PENELPOE A Primary Care Unavailable ABHYANKAR, KRISTOFER Referring Unavailable KAPLE, PENELOPE A Primary Care Unavailable ABHYANKAR, KRISTOFER Referring Unavailable KAPLE, PENELOPE A Primary Care Unavailable KAPLE, PENELOPE A Primary Care Unavailable ABHYANKAR, KRISTOFER Attending Unavailable KAPLE, PENELOPE A Primary Care Unavailable ABHYANKAR, KRISTOFER Referring Unavailable KAPLE, PENELOPE A Primary Care Unavailable CINDY MILLER Attending Unavailable MONTEZ, WILTON R Referring Unavailable KAPLE, PENELOPE A Primary Care Unavailable ALISA SABA Attending Unavailable KAPLE, PENELOPE A Referring Unavailable PENELOPE CASAS Primary Care Unavailable MONTEZ, Wilton R Attending Unavailable MONTEZ, Wilton R Admitting Unavailable MONTEZ, Wilton R Attending Unavailable MONTEZ, WILTON Attending Unavailable MONTEZ, WILTON Attending Unavailable MONTEZ, WILTON Attending Unavailable MONTEZ, WILTON Attending Unavailable MONTEZ, WILTON Attending Unavailable MONTEZ, WILTON Attending Unavailable MONTEZ, WILTON Attending Unavailable Allergies Allergy Classification Reported Allergen(s) Allergy Type Date of Onset Reaction(s) Facility (20 sources) Ciprofloxacin; Translations: [ciprofloxacin] Drug Allergy 05-19-19 20 Other: See Comments, Unknown, Numbness and tingling sensation of skin (finding), Nausea (finding), Other (See Comments), GI intolerance, Dizziness [facility] Work Phone: (20 sources) Ciprofloxacin / fluocinolone; Translations: [CIPROFLOXACIN-FL UOCINOLONE] Drug Allergy 05-19-19 20 Other: See Comments [facility] (20 sources) cow milk allergenic extract; Translations: [MILK] Drug Allergy 05-25-19 18 Other: See Comments [facility] Work Phone: (20 sources) Lactalbumin; Translations: [LACTALBUMIN] Drug Allergy 05-25-19 18 Unknown, GI Upset, Other (See Comments) [facility] (20 sources) Lactose; Translations: [LACTOSE] Drug Allergy 09-11-19 18 GI Upset, GI Disturbance [facility] (20 sources) Milk Drug Allergy 05-25-19 18 Other: See Comments, Other (See Comments) [facility] (6 sources) Penicillins Drug Allergy 02-01-20 19 Unknown [facility] (20 sources) Seasonal allergy; Translations: [SEASONAL ALLERGIES] Allergy to substance 05-05-19 21 GI Upset, Other: See Comments [facility] Work Phone: (20 sources) Milk Products; Translations: [Milk Products] Drug allergy Illness (finding) [facility] (20 sources) Ciprofloxacin / fluocinolone Drug Allergy 05-19-19 20 Other (See Comments) [facility] Work Phone: (1 source) Seasonal allergy Propensity to adverse reactions to substance 05-05-19 21 Other (See Comments) [facility] Phone: (1 source) Milk-Related Compounds Propensity to adverse reactions to drug 05-25-19 18 Other (See Comments) [facility] Phone: (2 sources) Penicillins Drug Allergy 02-01-20 19 Unknown [facility] (1 source) Ciprofloxacin Drug Allergy 03-30-20 22 [facility] (20 sources) Lactose (non-medical use) Propensity to adverse reactions 09-11-[address] [facility] (20 sources) Lactose (non-medical use) Drug Allergy 11-15-19 24 [facility] (20 sources) Octacosanol Drug Intolerance 05-05-19 21 [facility] (20 sources) Other Allergy to substance 05-25-[address] [facility] Work Phone: (2 sources) MILK CONTAINING PRODUCTS (DAIRY); Translations: [MILK CONTAINING PRODUCTS (DAIRY)] Propensity to adverse reactions to drug (disorder) 05-25-19 18 [facility] Medications Current Medications Medication Drug [...] puff(s), Inhalation, q6hr, 1 EA, Refill(s) 5, [facility], 168, cm, 02/02/24 14:43:00 EDT, Height/Length Dosing, 101.1, kg, 02/02/24 14:43:00 EDT, Weight Dosing Start Date: 02/02/24 Status: Ordered azithromycin 250 mg oral tablet (18 sources) Macrolide Antimicrobial Start: 09-08-2024 End: 10-30-2024 azithromycin (Zithromax Z-Jonny) 250 MG tablet Indications: 5 weeks gestation of ([facility]) As directed 6 tablet 09/08/2024 10/30/2024 Discontinued (Therapy completed) Start: 06-19-2024 End: 06-29-2024 Zithromax 250 mg Tab = 1 pac ket(s), Oral, As Directed, as directed on package labeling, X 5 day(s), # 6 tab(s), Refills(s) 1, Pharmacy: [facility] 1986, 168, cm, 06/09/24 14:03:00 [...] day(s), # 6 tab(s), Refills(s) 0, Pharmacy: [facility], 168, cm, 02/02/24 14:43:00 EDT, Height/Length Dosing, 101.1, kg, 02/02/24 14:43:00 EDT, Weight Dosing Start Date: 02/02/24 Stop Date: 02/07/24 Status: Ordered Blood Glucose Monitoring Suppl (D-Care Glucometer) w/Device kit (9 sources) Start: 10-30-2024 End: 10-30-2025 Blood Glucose Monitoring Suppl (D-Care Glucometer) w/Device kit Indications: Second trimester ([facility]) , 13 weeks gestation of ([facility]) , Multigravida of advanced maternal age in second trimester ([facility]) , Gestational diabetes mellitus (GDM), antepartum, gestational diabetes method of control unspecified ([facility]) , Elevated glucose tolerance test 1 kit Daily Use four times daily to check FSBS. In the morning prior to breakfast & 1 hour after each meal for a total of 4times daily. 1 kit 10/30/2024 10/30/2025 Active blood-glucose meter (BLOOD GLUCOSE MONITORING) kit (8 sources) blood-glucose me ter (BLOOD GLUCOSE MONITORING) kit 1 each by other route in the morning. Use to check blood sugar 4 times daily . Active cephalexin 500 mg oral tablet (11 sources) Cephalosporin Antibacterial Start: 08-19-2021 End: 08-29-2021 take 1 tablet by mouth twice daily cephalexin 500 mg oral tablet 500 mg = 1 tab(s), Oral, BID, X 10 day(s), # 20 tab(s), Refills(s) 0, Pharmacy: [facility] 1986, 168, cm, 08/19/21 10:50:00 [...] for 7 day(s), 7.5 mL, Refill(s) 0, [id number], 168, cm, 10/23/23 16:55:00 EDT, Height/Length Dosing, 106.2, kg, 10/23/23 16:55:00 EDT, Weight Dosing Start Date: 10/23/23 Stop Date: 10/30/23 Status: Ordered Start: 02-15-2023 End: 02-22-2023 Ciprodex 0.3%-0.1% Susp-Otic 4 drop(s), Otic, BID for 7 day(s), 7.5 mL, Refill(s) 0, Only use if drainage or pain of ear shake well before using, [facility], 168, cm, 02/15/23 9:49:00 EDT, Height/Length Dosing, 108, kg, 02/15/23 9:49:00 EDT, Weight Dosing Start Date: 02/15/23 Stop Date: 02/22/23 Status: Ordered docusate sodium 100 mg oral capsule (20 sources) take 1 capsule by mo uth once daily docusate sodium (COLACE) 100 mg capsule Take 100 mg by mouth daily. Active take 2 capsules by mouth in the morning docusate sodium (Colace) 50 MG capsule Take 100 mg by mouth in the morning and 100 mg before bedtime. Active docusate sodium (COLACE PO) Take by mouth. Active enoxaparin (LOVENOX) 40 MG/0.4ML injection (1 source) Start: 02-20-2020 enoxaparin (LOVENOX) 40 MG/0.4ML injection Inject 0.4 mLs into the skin daily 16 mL 1 02/20/2020 Active enoxaparin (Lovenox) 40 MG/0.4ML injection (12 sources) enoxaparin (Lovenox) 40 MG/0.4ML injection 1 (one) time each day at the same time Active famotidine 40 mg oral tablet (20 sources) Histamine-2 Receptor Antagonist Start: 06-30-2024 take 1 tablet by mouth once daily at bedtime Pepcid 40 mg Tab 40 mg = 1 tab(s), Oral, Once a day (at bedtime), # 90 tab(s), Refills(s) 4, Pharmacy: [facility] 1986, 168, cm, 06/30/24 8:36:00 [...] q7day, # 4 tab(s), Refills(s) 1, Pharmacy: [facility], 168, cm, 06/09/24 14:03:00 EST, Height/Length Dosing, 98.4, kg, 06/19/24 16:19:00 EST, Weight Dosing Start Date: 06/19/24 Status: Ordered Quantity: 4.0 Unit: tab(s) Repeat number: 2 Indication: Candidiasis, unspecified fluticasone propionate 0.05 mg/actuat metered dose nasal spray (19 sources) Corticosteroid Start: 11-20-2024 End: 11-20-2025 take 1 spray(s) nasal route once daily fluticasone (Flonase) 50 MCG/ACT nasal spray Indications: Sinus headache Administer 1 spray into each nostril Daily Shake gently. Before first use, prime pump. After use, clean tip and replace cap. 16 g 3 11/20/2024 11/20/2025 Active Start: 06-09-2024 Flonase 0.05 m g/inh [place] 2 spray(s), Nasal, Daily, 16 gram, Refill(s) 11, each nostril, [facility]pharm[facility] #[id number], 168, cm, 06/09/24 14:03:00 EST, Height/Length Dosing, 99.1, kg, 06/09/24 14:03:00 EST, Weight Dosing Start Date: 06/09/24 Status: Ordered Quantity: 16.0 Unit: g Repeat number: 12 Start: 06-09-2024 Flonase 0.05 m g/inh [place] 2 spray(s), Nasal, Daily, 16 gram, Refill(s) 11, each nostril, [facility]pharm[facility] #[id number], 168, cm, 06/09/24 14:03:00 EST, Height/Length Dosing, 99.1, kg, 06/09/24 14:03:00 EST, Weight Dosing Start Date: 2/10/25 Status: Ordered Start: 08-03-2023 Flonase 0.05 m g/inh [place] 2 spray(s), Nasal, Daily, 16 gram, Refill(s) 0, each nostril Start Date: 08/03/23 Status: Ordered 3 ml insulin glargine 100 unt/ml pen injector (5 sources) Insulin Analog Start: 12-03-2024 insulin glargi ne (LANTUS SOLOSTAR U-100 INSULIN) 100 unit/mL (3 mL) insulin pen Prime with 2 units then inject 4 units SQ into abd 15 mL 3 12/03/2024 Active isopropyl alcohol 0.7 ml/ml medicated pad (17 sources) Start: 10-30-2024 Alcohol Swabs (Alcohol Prep Pad) 70 % pads Indications: Second trimester ([facility]) , 13 weeks gestation of ([facility]) , Multigravida of advanced maternal age in second trimester ([facility]) , Gestational diabetes mellitus (GDM), antepartum, gestational diabetes method of control unspecified ([facility]) , Elevated glucose tolerance test Apply [...] morning. Take before meals. 30 tablet 11 06/23/2024 06/23/2025 Active Start: 08-24-2021 End: 09-26-2023 [...] Date: 04/07/20 Status: Ordered 24 hr metFORMIN hydrochlorid e 500 mg extended release oral tablet (20 sources) Biguanide Start: 12-12-2024 metFORMIN XR ( GLUCOPHAGE XR) 500 mg 24 hr tablet Take 500 mg in the morning and 1000 mg at night. 90 tablet 4 12/12/2024 Active Start: 05-13-2024 End: 06-12-2024 take 2 tablets [...] luna th once daily. polyethylene glycol 3350 72795 mg powder for oral solution (19 sources) Osmotic Laxative polyethylene gl ycol (GLYCOLAX) 17 gram packet Take 17 g by mouth daily. Active Polyethylene Glycols (3 sources) polyethylene gly col 3350 (MIRALAX PO) Take by mouth. Active 19 29 mg iron- 1 mg tablet,chewable (10 sources) Start: 11-01-19 19 19 29 mg iron- 1 mg tablet,chewable Chew 1 tablet and swallow daily. 6 10/31/2018 Active Vit-Fe Fumarate-FA ( PO) (1 source) Start: 11-01-19 19 Vit-Fe Fumarate-FA ( PO) Take 1 tablet by mouth 0 10/31/2018 Active progesterone 200 mg oral capsule (8 sources) Progesterone take 1 capsule by mouth in the morning progesterone (PROMETRIUM) 200 mg capsule Take 1 capsule (200 mg total) by mouth in the morning. Active Progesterone 200 MG suppository (6 sources) Start: 09-19-19 25 End: 10-31-19 25 Progesterone 200 MG suppository [...] for 7 day(s), 8 gm, Refill(s) 0, [facility], 167, cm, 09/07/24 10:01:00 EDT, Height/Length Dosing, [...] Onset: 2 Chronic Deficiency and other anemia (9 sources) Anemia; Translations: [Anemia, unspecified] Onset: 5 Episodic Disorders of teeth and jaw (11 sources) Temporomandibular flsvx-umbu-xivqtgqtsni syndrome; Translations: [Arthralgia of temporomandibular joint] Onset: 5 06-09-2024 Episodic Esophageal disorders (20 sources) Laryngopharyngeal reflux; Translations: [Gastro-esophageal reflux disease without esophagitis] Onset: 4 11-19-2023 Chronic Headache; including migraine (2 sources) Sinus [...] 12-22-2022 Chronic Other aftercare (1 source) Other mcfp (current) drug therapy; Translations: [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] Onset: 3 Episodic Other aftercare (1 source) neck cutter (current) use of oral hypoglycemic drugs; 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] Onset: 3 Episodic [...] UNS] Onset: 2 Episodic Other complications of (12 sources) Multigravida of advanced maternal age; Translations: [...] nutritional and metabolic disease] 06-02-2024 Episodic Other screening for suspected conditions (not [...] than to drugs and biological substances; Translations: [Ahbcg-mh-uchuwep vesicular eczema of hands and feet] Onset: [...] involving the genitourinary system] Onset: 9 Episodic Headache; including migraine (20 sources) Migraine without aura, not refractory ; Translations: [Migraine without aura, not intractable, without status migrainosus] Onset: 8 Resolved: 0 09-12-2017 Chronic Immunizations and screening for infectious disease (20 [...] sources) Long-term current use of anticoagulant; Translations: [intermediate (current) use of anticoagulants] Onset: 0 02-22-2020 [...] TRI] Onset: 2 Episodic Other complications of (10 sources) Antiphospholipid syndrome; Translations: [Other diseases of [...] metabolic disease] Onset: 4 04-27-2023 Episodic Other and delivery including normal (20 sources) Normal ; Translations: [Encounter for supervision of normal , unspecified, first trimester] Onset: 0 02-12-2020 Episodic Other skin disorders (20 sources) Dkjuf-qx-lafejwg vesicular eczema of hands and feet; Translations: [...] Test Name Value Interpretation Reference Range Facility ALL THYROID STIM HORMONEon 0 12-11-2024 TSH Qn 1.508 m[IU]/L [facility] Urinalysis macro (dipstick) panel (U)on 12-11-2024 Bilirubin, UA Negative Negative - 4(70) +++ mg/dL [facility] Blood, UA Negative Negative - 50 Max/mcL [facility] Clarity, UA Clear [facility] Color, UA Yellow [facility] Glucose, UA Negative Negative - 1999(110) ++++ mg/dL [facility] Interpretation and review of laboratory results Normal [facility] Ketones, UA Negative Negative - 160(16) ++++ mg/dL [facility] Leukocytes, UA Negative Negative - 500+++ John/mcL [facility] Nitrite, UA Negative Negative - Positive [facility] pH, UA 6 5 - 9 [facility] Protein, UA Negative Negative - 2000(20) ++++ mg/dL [facility] Spec Grav, UA 1.01 1 - 1.03 [facility] Urobilinogen, UA 1.0 0.2 - 12 mg/dL [facility] Urinalysis macro (dipstick) panel (U)on 11-20-2024 Bilirubin, UA Negative Negative - 4(70) +++ mg/dL [facility] Blood, UA Negative Negative - 50 Max/mcL [facility] Clarity, UA Clear [facility] Color, UA Yellow [facility] Glucose, UA Negative Negative - 1999(110) ++++ mg/dL [facility] Interpretation and review of laboratory results Normal [facility] Ketones, UA Negative Negative - 160(16) ++++ mg/dL [facility] Leukocytes, UA Negative Negative - 500+++ John/mcL [facility] Nitrite, UA Negative Negative - Positive [facility] pH, UA 6.5 5 - 9 [facility] Protein, UA Negative Negative - 2000(20) ++++ mg/dL [facility] Spec Grav, UA 1.005 1 - 1.03 [facility] Urobilinogen, UA 0.2 0.2 - 12 mg/dL [facility] Glucose random or fasting- P OCTon 11-19-2024 External Glucose Fasting Or Random (Fbs) 94 [facility] Urinalysis macro (dipstick) panel (U)on 10-30-2024 Bilirubin, UA Negative Negative - 4(70) +++ mg/dL [facility] Blood, UA Negative Negative - 50 Max/mcL [facility] Clarity, UA Clear [facility] Color, UA Yellow [facility] Glucose, UA Negative Negative - 1999(110) ++++ mg/dL [facility] Interpretation and review of laboratory results Normal [facility] Ketones, UA Negative Negative - 160(16) ++++ mg/dL [facility] Leukocytes, UA Negative Negative - 500+++ John/mcL [facility] Nitrite, UA Negative Negative - Positive [facility] pH, UA 7 5 - 9 [facility] Protein, UA Negative Negative - 1999(20) ++++ mg/dL [facility] Spec Grav, UA 1.01 1 - 1.03 [facility] Urobilinogen, UA 0.2 0.2 - 12 mg/dL [facility] 25(OH)D3 [facility] 2024 25-hydroxyvitamin D3 [Mass/Vol] 32.1 ng/mL Normal 31.0-80.0 [facility] Comment on above: Order Comment: Speci men Type: BLOOD SPECIMENOrdering Facility: [facility] Address: [address] [place] [address] Result Comment: Clas sification of 25 [place] Vitamin D status: Deficiency/Insufficiency: < or = 30 ng/ml. Sufficiency/Optimal Levels: 31-80 ng/mL Toxicity: > 100 ng/mL. Test performed by chemiluminescent immunoassay. Performed By: #### 1 989-3 ####[facility] LABCLIA [id number] [place] [address] [place] CBC W Auto Differential pane l (Bld)on 10-28-2024 Basophils (Bld) [#/Vol] 0.03 10*3/uL Normal <0.11 [facility] Comment on above: Order Comment: Speci men Type: BLOOD SPECIMENOrdering Facility: [facility] Address: [address] [place] [address] Performed By: #### 5 7021-8 ####[facility] LABCLIA [id number] [place] [address] Basophils/100 WBC (Bld) 0.3 % Normal [facility] Comment on above: Order Comment: Speci men Type: BLOOD SPECIMENOrdering Facility: [facility] Address: [address] [place] [address] Performed By: #### 5 7021-8 ####[facility] LABCLIA [id number] [place] [address] Differential cell count method Nom (Bld) Auto Normal [facility] Comment on above: Order Comment: Speci men Type: BLOOD SPECIMENOrdering Facility: [facility] Address: [address] [place] [address] Performed By: #### 5 7021-8 ####[facility] LABCLIA [id number] [place] [address] Eosinophils (Bld) [#/Vol] 0.05 10*3/uL Normal <0.46 [facility] Comment on above: Order Comment: Speci men Type: BLOOD SPECIMENOrdering Facility: [facility] Address: [address] [place] [address] Performed By: #### 5 7021-8 ####[facility] LABCLIA [id number] [place] [address] Eosinophils/100 WBC (Bld) 0.5 % Normal [facility] Comment on above: Order Comment: Speci men Type: BLOOD SPECIMENOrdering Facility: [facility] Address: [address] [place] [address] Performed By: #### 5 7021-8 ####[facility] LABCLIA [id number] [place] [address] Erythrocyte distribution width (RBC) [Ratio] 14.5 % Normal 11.5-15.0 [facility] Comment on above: Order Comment: Speci men Type: BLOOD SPECIMENOrdering Facility: [facility] Address: [address] [place] [address] Performed By: #### 5 7021-8 ####[facility] LABCLIA [id number] [place] [address] Hematocrit (Bld) [Volume fraction] 36.9 % Normal 36.0-46.0 [facility] Comment on above: Order Comment: Speci men Type: BLOOD SPECIMENOrdering Facility: [facility] Address: [address] [place] [address] Performed By: #### 5 7021-8 ####[facility] LABIA [id number] [place] [address] Hemoglobin (Bld) [Mass/Vol] 13.0 g/dL Normal 11.5-15.5 [facility] Comment on above: Order Comment: Speci men Type: BLOOD SPECIMENOrdering Facility: [facility] Address: [address] [place] [address] Performed By: #### 5 7021-8 ####[facility] LABCLIA [id number] [place] [address] Immature granulocytes (Bld) [#/Vol] 10*3/uL Normal <0.10 [facility] Comment on above: Order Comment: Speci men Type: BLOOD SPECIMENOrdering Facility: [facility] Address: [address] [place] [address] Performed By: #### 5 7021-8 ####[facility] LABCLIA [id number] [place] [address] Immature granulocytes/100 WBC (Bld) 0.2 % Normal [facility] Comment on above: Order Comment: Speci men Type: BLOOD SPECIMENOrdering Facility: [facility] Address: [address] [place] [address] Performed By: #### 5 7021-8 ####[facility] LABCLIA [id number] [place] [address] Lymphocytes (Bld) [#/Vol] 2.50 10*3/uL Normal 1.00-4.00 [facility] Comment on above: Order Comment: Speci men Type: BLOOD SPECIMENOrdering Facility: [facility] Address: [address] [place] [address] Performed By: #### 5 7021-8 ####[facility] LABCLIA [id number] [place] [address] Lymphocytes/100 WBC (Bld) 26.3 % Normal [facility] Comment on above: Order Comment: Speci men Type: BLOOD SPECIMENOrdering Facility: [facility] Address: [address] [place] [address] Performed By: #### 5 7021-8 ####[facility] LABCLIA [id number] [place] [address] MCH (RBC) [Entitic mass] 30.6 pg Normal 26.0-34.0 [facility] Comment on above: Order Comment: Speci men Type: BLOOD SPECIMENOrdering Facility: [facility] Address: [address] [place] [address] Performed By: #### 5 7021-8 ####[facility] LABIA [id number] [place] [address] MCHC (RBC) [Mass/Vol] 35.2 g/dL Normal 30.5-36.0 [facility] Comment on above: Order Comment: Speci men Type: BLOOD SPECIMENOrdering Facility: [facility] Address: [address] [place] [address] Performed By: #### 5 7021-8 ####[facility] LABCLIA [id number] [place] [address] MCV (RBC) [Entitic vol] 86.8 fL Normal 80.0-100.0 [facility] Comment on above: Order Comment: Speci men Type: BLOOD SPECIMENOrdering Facility: [facility] Address: [address] [place] [address] Performed By: #### 5 7021-8 ####[facility] LABCLIA [id number] [place] [address] Monocytes (Bld) [#/Vol] 0.44 10*3/uL Normal <0.87 [facility] Comment on above: Order Comment: Speci men Type: BLOOD SPECIMENOrdering Facility: [facility] Address: [address] [place] [address] Performed By: #### 5 7021-8 ####[facility] LABIA [id number] [place] [address] Monocytes/100 WBC (Bld) 4.6 % Normal [facility] Comment on above: Order Comment: Speci men Type: BLOOD SPECIMENOrdering Facility: [facility] Address: [address] [place] [address] Performed By: #### 5 7021-8 ####[facility] LABCLIA [id number] [place] [address] Neutrophils (Bld) [#/Vol] 6.48 10*3/uL Normal 1.45-7.50 [facility] Comment on above: Order Comment: Speci men Type: BLOOD SPECIMENOrdering Facility: [facility] Address: [address] [place] [address] Performed By: #### 5 7021-8 ####[facility] LABCLIA [id number] [place] [address] Neutrophils/100 WBC (Bld) 68.1 % Normal [facility] Comment on above: Order Comment: Speci men Type: BLOOD SPECIMENOrdering Facility: [facility] Address: [address] [place] [address] Performed By: #### 5 7021-8 ####[facility] LABCLIA [id number] [place] [address] Nucleated RBC (Bld) [#/Vol] 10*3/uL Normal <0.01 [facility] Comment on above: Order Comment: Speci men Type: BLOOD SPECIMENOrdering Facility: [facility] Address: [address] [place] [address] Performed By: #### 5 7021-8 ####[facility] LABCLIA [id number] [place] [address] Nucleated RBC/100 WBC (Bld) [Ratio] 0.0 /100 WBC Normal [facility] Comment on above: Order Comment: Speci men Type: BLOOD SPECIMENOrdering Facility: [facility] Address: [address] [place] [address] Performed By: #### 5 7021-8 ####[facility] LABCLIA [id number] [place] [address] Platelet mean volume (Bld) [Entitic vol] 9.8 fL Normal 9.0-12.7 [facility] Comment on above: Order Comment: Speci men Type: BLOOD SPECIMENOrdering Facility: [facility] Address: [address] [place] [address] Performed By: #### 5 7021-8 ####[facility] LABCLIA [id number] [place] [address] Platelets (Bld) [#/Vol] 327 10*3/uL Normal 150-400 [facility] Comment on above: Order Comment: Speci men Type: BLOOD SPECIMENOrdering Facility: [facility] Address: [address] [place] [address] Performed By: #### 5 7021-8 ####[facility] LABCLIA [id number] [place] [address] RBC (Bld) [#/Vol] 4.25 10*6/uL Normal 3.90-5.20 [facility] Comment on above: Order Comment: Speci men Type: BLOOD SPECIMENOrdering Facility: [facility] Address: [address] [place] [address] Performed By: #### 5 7021-8 ####[facility] LABCLIA [id number] [place] [address] WBC (Bld) [#/Vol] 9.52 10*3/uL Normal 3.70-11.00 [facility] Comment on above: Order Comment: Speci men Type: BLOOD SPECIMENOrdering Facility: [facility] Address: [address] [place] [address] Performed By: #### 5 7021-8 ####[facility] LABCLIA [id number] [place] [address] CNOVSPon 10-28-2024 OVS Visit (SP) Office ([facility]) SANNA RENDON ([id number]) 1985 F Date Time Provider Department 10/28/24 2:30 PM KATHERINE NEGRETE During your visit today, we recorded the following information about you: Temperature Pulse Respiration Blood pressure 97 degrees 82/minute 16/minute 122/77 Weight Last Period 94.1 kg 10/28/24 Katherine Negrete APRN.ATHLETIC COACH 10/29/2024 9:44 PM Signed NAME: Sanna Rendon CLINIC NO.: [id number] DATE OF SERVICE: October 28, 2024 (Arsh) Some elements in this clinic note that are critical to medical decision making have been carefully reviewed and included from a prior clinic note dated: October 10, 2024 (Levon) Additional Clinicians involved in Sanna Rendon's care: Drs. Herrmann, Jorge Monge, Humaira Gaviria, Dr. Boothe CC: Hypercoag state CASE SUMMARY / ASSESSMENT: 39 year old woman presents with a prior history of CVA in 2016 and an antiphospholipid antibody that was identified much later in 2018. These were found in [place], [place]. I don't have access to these [...] a target-like rash shortly before presenting to [facility] in 2015 with headaches and was [...] are pending. Updated Visit, May 28, 2024: Sanna returns today for a follow up. She [...] at home. Updated Visit, January 02, 2024: Sanna returns today for a follow up. She [...] and vi (more content not included)... [facility] Tele[facility] (NCCAP) JUSTICE,KATIE ([id number]) 1985 F Date Time Provider Department 10/28/24 KATHERINE NEGRETE NCCVAIBHAV During your visit today, we recorded the following information about you: JocelynelesterRoberta 10/28/2024 2:52 PM Signed Valeri Yan RN 10/30/2024 8:30 AM Signed Labs resulted. Please advise. MARSHA Barajas Mindy M, PA-C 11/04/2024 8:13 AM Signed Katherine saw this patient last and will be able to advise better of the plan of care. NELI Buck Holly, VICTOR HUGO.TOR 11/05/2024 12:33 PM Signed Spoke with Dr. Moscoso and she is to continue Lovenox 40 daily and add baby asa (81 mg) daily. Please also make sure she is following OB High risk. Labs acceptable at this time. Will monitor. Thanks, Katherine Negrete APRN.Rachael Brown RN 11/05/2024 12:51 PM Signed Pt updated. She reports she is unable to take aspirin. It makes my electrolytes go out of whack. I didn't take with my previous pregnancies and I am not comfortable taking this time either. She will continue with Lovenox, as recommended. Pt is scheduled for appt with high school coordinator, 11/19/24, [facility]. She denies further questions, needs or concerns for our care team at this time. Appt verified for RTC Rachael Johnson RN Allergies As of Date: 10/28/2024 [...] D deficiency [E55.9] 05/28/2024 Encounter Status:Closed by RACHAEL JOHNSON on 11/05/24 Normal [facility] Comprehensive metabolic 2000 panelon 10-28-2024 Albumin [Mass/Vol] 4.4 g/dL Normal 3.9-4.9 [facility] Comment on above: Order Comment: Speci men Type: BLOOD SPECIMENOrdering Facility: [facility] Address: [address] [place] [address] Performed By: #### 2 4323-8 ####[facility] LABCLIA [id number] [place] [address] ALP [Catalytic activity/Vol] 55 U/L Normal 34-123 [facility] Comment on above: Order Comment: Speci men Type: BLOOD SPECIMENOrdering Facility: [facility] Address: [address] [place] [address] Performed By: #### 2 4323-8 ####[facility] LABCLIA [id number] [place] [address] ALT [Catalytic activity/Vol] 18 U/L Normal 7-38 [facility] Comment on above: Order Comment: Speci men Type: BLOOD SPECIMENOrdering Facility: [facility] Address: [address] [place] [address] Performed By: #### 2 4323-8 ####[facility] LABCLIA [id number] [place] [address] Anion gap [Moles/Vol] 12 mmol/L Normal 8-15 [facility] Comment on above: Order Comment: Speci men Type: BLOOD SPECIMENOrdering Facility: [facility] Address: [address] [place] [address] Performed By: #### 2 4323-8 ####[facility] LABIA [id number] [place] [address] AST [Catalytic activity/Vol] 13 U/L Normal 13-35 [facility] Comment on above: Order Comment: Speci men Type: BLOOD SPECIMENOrdering Facility: [facility] Address: [address] [place] [address] Performed By: #### 2 4323-8 ####[facility] LABCLIA [id number] [place] [address] Bilirubin [Mass/Vol] 0.2 mg/dL Normal 0.2-1.3 [facility] Comment on above: Order Comment: Speci men Type: BLOOD SPECIMENOrdering Facility: [facility] Address: [address] [place] [address] Performed By: #### 2 4323-8 ####[facility] LABCLIA [id number] [place] [address] Calcium [Mass/Vol] 9.9 mg/dL Normal 8.5-10.2 [facility] Comment on above: Order Comment: Speci men Type: BLOOD SPECIMENOrdering Facility: [facility] Address: [address] [place] [address] Performed By: #### 2 4323-8 ####[facility] LABCLIA [id number] [place] [address] Chloride [Moles/Vol] 99 mmol/L Normal 98-107 [facility] Comment on above: Order Comment: Speci men Type: BLOOD SPECIMENOrdering Facility: [facility] Address: [address] [place] [address] Performed By: #### 2 4323-8 ####[facility] LABCLIA [id number] [place] [address] CO2 [Moles/Vol] 22 mmol/L Normal 22-30 [facility] Comment on above: Order Comment: Speci men Type: BLOOD SPECIMENOrdering Facility: [facility] Address: [address] [place] [address] Performed By: #### 2 4323-8 ####[facility] LABCLIA [id number] [place] [address] Creatinine [Mass/Vol] 0.60 mg/dL Normal 0.58-0.96 [facility] Comment on above: Order Comment: Cesar redd Type: BLOOD SPECIMENOrdering Facility: [facility] Address: [address] [address] Performed By: #### 2 4323-8 ####[facility] LABCLIA [id number] [place] [address] Creatinine and Glomerular filtration rate.predicted panel (S/P/Bld) 117 mL/min/1.73m??? Normal >=60 [facility] Comment on above: Order Comment: Specmoe redd Type: BLOOD SPECIMENOrdering Facility: [facility] Address: [address] [place] [address] Result Comment: Hawa mated Glomerular Filtration Rate [...] actual GFR. Performed By: #### 2 4323-8 ####[facility] LABCLIA [id number] [place] [address] Glucose [Mass/Vol] 101 mg/dL High 74-99 [facility] Comment on above: Order Comment: Cesar tramaine Type: BLOOD SPECIMENOrdering Facility: [facility] Address: [address] [address] Result Comment: The [place] Diabetes Association (ADA) provides guidance for cutoff [...] Standards of Medical Care in Diabetes 2016, [place] Diabetes Association. Diabetes Care. 2016.39(Suppl 1). Performed By: #### 2 4323-8 ####[facility] LABCLIA [id number] [place] [address] Potassium [Moles/Vol] 3.5 mmol/L Low 3.7-5.1 [facility] Comment on above: Order Comment: Speci men Type: BLOOD SPECIMENOrdering Facility: [facility] Address: [address] [place] [address] Performed By: #### 2 4323-8 ####[facility] LABCLIA [id number] [place] [address] Protein [Mass/Vol] 7.6 g/dL Normal 6.3-8.0 [facility] Comment on above: Order Comment: Speci men Type: BLOOD SPECIMENOrdering Facility: [facility] Address: [address] [place] [address] Performed By: #### 2 4323-8 ####[facility] LABCLIA [id number] [place] [address] Sodium [Moles/Vol] 133 mmol/L Low 136-144 [facility] Comment on above: Order Comment: Speci men Type: BLOOD SPECIMENOrdering Facility: [facility] Address: [address] [place] [address] Performed By: #### 2 4323-8 ####[facility] LABCLIA [id number] [place] [address] Urea nitrogen [Mass/Vol] 7 mg/dL Normal 7-21 [facility] Comment on above: Order Comment: Speci men Type: BLOOD SPECIMENOrdering Facility: [facility] Address: [address] [place] [address] Performed By: #### 2 4323-8 ####[facility] LABCLIA [id number] [place] [address] Ferritin [facility] 2024 Ferritin [Mass/Vol] 99.6 ng/mL Normal 14.7-205.1 [facility] Comment on above: Order Comment: Speci men Type: BLOOD SPECIMENOrdering Facility: [facility] Address: [address] [place] [address] Performed By: #### 2 132-9, 2276-4, 50227-8, 3016-3 ####[facility] LABCLIA [id number] [place] [id number] [place] Iron and Iron binding capaci ty panel 10-28-2024 Iron [Mass/Vol] 72 ug/dL Normal 41-186 [facility] Comment on above: Order Comment: Speci men Type: BLOOD SPECIMENOrdering Facility: [facility] Address: [address] [place] [address] Performed By: #### 2 132-9, 2276-4, 69162-0, 3016-3 ####[facility] LABCLIA [id number] [place] [id number] [place] Iron binding capacity [Mass/Vol] 399 ug/dL High 232-386 [facility] Comment on above: Order Comment: Speci men Type: BLOOD SPECIMENOrdering Facility: [facility] Address: [address] [place] [address] Performed By: #### 2 132-9, 2276-4, 28474-8, 3016-3 ####[facility] LABCLIA [id number] [place] [id number] [place] Iron/TIBC [Molar ratio] 18.0 % Normal 15.0-57.0 [facility] Comment on above: Order Comment: Speci men Type: BLOOD SPECIMENOrdering Facility: [facility] Address: [address] [place] [address] Performed By: #### 2 132-9, 2276-4, 62207-8, 3016-3 ####[facility] LABCLIA [id number] [place] [id number] [place] TSHon 07-01-2025 Thyroid Stimulating (3Rd Generation) Hormone/ Tsh 1.25 [facility] TSH SerPl-aCncon 10-28-2024 TSH Qn 1.250 m[IU]/L Normal 0.270-4.20 0 [facility] Comment on above: Order Comment: Cesar redd Type: BLOOD SPECIMENOrdering Facility: [facility] Address: [address] [place] [address] Result Comment: If t he patient is , TSH reference range varies by gestational period: First Trimester (weeks 9-12): 0.180-2.990 mIU/L Second Trimester: 0.110-3.980 mIU/L Third Trimester: 0.480-4.710 mIU/L Danny Varela et al. A Practical Approach for the Verifications and Determination of Site- and Trimester-Specific Reference Intervals for Thyroid Function tests in . Thyroid, 2019:29:3:412-420. Saeed Pan, et al. 2017 Guidelines of the [place] Thyroid Association for the Diagnosis and Management of Thyroid Disease during and the . Thyroid, 2017:27:3:315-389. Performed By: #### 2 132-9, 2276-4, 05028-4, 3016-3 ####[facility] LABIA [id number] [place] [address] [place] Vit B12 SerPl-mCncon 025 Cobalamin (Vitamin B12) [Mass/Vol] 483 pg/mL Normal 232-1245 [facility] Comment on above: Order Comment: Cesar redd Type: BLOOD SPECIMENOrdering Facility: [facility] Address: [address] [place] [address] Performed By: #### 2 132-9, 2276-4, 37988-5, 3016-3 ####[facility] LABIA [id number] [place] [id number] [place] CNPRosaura 10-24-2024 CNPN Telephone (HEMASA) SANNA RENDON ([id number]) 1985 F Date Time Provider Department 10/24/24 KATHERINE NEGRETE During your visit today, we recorded the following information about you: Kaur Dunham MA 10/24/2024 2:14 PM Signed New orders may need placed for appt on 10/28. Kaur Dunham MA Allergies As of Date: 10/24/2024 [...] and gassy Date Reviewed: 08/26/2024 Reviewed by: Katherine Negrete APRN.ATHLETIC COACH - Fully Assessed Reason for Visit: Lab Orders [1688] Prescriptions as of 10/24/2024 - enoxaparin (LOVENOX) [...] D deficiency [E55.9] 05/28/2024 Encounter Status:Closed by KAUR DUNHAM on 10/24/24 Normal [facility] US OB TRANSVAGINALon 025 US OB [...] II, MD, PHD at 21-Oct-2024 08:31:21 AM [facility] Normal Not Available Comment on above: Order Comment: US OB VIABILITY PLEASE PERFORM TRANSVAGINAL ULTRASOUND IF INDICATED No LMP recorded. ALL CBC WITH AUTO DIFFon BASOPHILS ABSOLUTE AUTO 0 [facility] Basophils/100 WBC (Bld) 0.2 % 0.2 - 2.0 % [facility] Eosinophils/100 WBC (Bld) 0.4 % Low 0.9 - 7.0 % [facility] Erythrocyte distribution width (RBC) [Ratio] 14 % 11.0 - 15.0 % [facility] Hematocrit (Bld) [Volume fraction] 38.1 % 36.0 - 48.0 % [facility] Hemoglobin (Bld) [Mass/Vol] 13.2 g/dL 12.0 - 16.0 g/dL [facility] IMMATURE GRANULOCYTES ABS AUTO 0.03 [facility] Immature granulocytes/100 WBC (Bld) 0.3 % 0.0 - 0.5 % [facility] Interpretation and review of laboratory results Abnormal [facility] LYMPHOCYTES ABSOLUTE AUTO 2.6 [facility] Lymphocytes/100 WBC (Bld) 29.1 % 20.5 - 60.0 % [facility] MCH (RBC) [Entitic mass] 29.9 pg 26.7 - 34.0 pg [facility] MCHC (RBC) [Mass/Vol] 34.6 g/dL 29.9 - 35.2 g/dL [facility] MCV (RBC) [Entitic vol] 86.2 fL 81.0 - 99.0 fL [facility] MONOCYTES ABSOLUTE AUTO 0.6 [facility] Monocytes/100 WBC (Bld) 7.2 % 1.7 - 12.0 % [facility] NEUTROPHILS ABSOLUTE AUTO 5.6 [facility] Neutrophils/100 WBC (Bld) 62.8 % 43.0 - 75.0 % [facility] Platelet mean volume (Bld) [Entitic vol] 10.1 fL 9.5 - 13.5 fL [facility] TBH EO # 0 [facility] TBH PLT 309 [facility] RBC 4.42 [facility] WBC 8.9 [facility] Drug Screen, Urineon 025 Amphetamine/Methamphe tamine Negative [facility] Barbiturates Negative [facility] Benzodiazepines Negative [facility] Cocaine Metabolite Negative [facility] Ecst[facility] Negative [facility] Methadone Negative [facility] Opiates Negative [facility] Oxycodone Negative [facility] Phencyclidine [facility] Thc Marijuana, Urine Negative [facility] HBV surface Ag IA Qlon 10-06 Hepatitis B Surface Antigen Negative [facility] HIV 1+2 Ab+HIV1 p24 Ag IA Ql on 10-06-2024 HIV 1&2 AB/AG Negative [facility] Hemoglobin A1con 10-06-2024 HbA1c (Bld) [Mass fraction] 5.9 % 4.0 - 6.0 % [facility] No Panel Informationon 10-06 [facility] TSHon 10-06-2024 Thyroid Stimulating (3Rd Generation) Hormone/ Tsh 1.131 [facility] Type and screenon 10-06-2024 Abo/Rh(D) Negative [facility] HCG ( test) Ql (U)o n 10-02-2024 Interpretation and review of laboratory results Abnormal [facility] Preg Test, Ur Positive Negative [facility] Urinalysis macro (dipstick) panel (U)on 10-02-2024 Bilirubin, UA Negative Negative - 4(70) +++ mg/dL [facility] Blood, UA Negative Negative - 50 Max/mcL [facility] Clarity, UA Clear [facility] Color, UA Yellow [facility] Glucose, UA Negative Negative - 1999(110) ++++ mg/dL [facility] Interpretation and review of laboratory results Normal [facility] Ketones, UA Negative Negative - 160(16) ++++ mg/dL [facility] Leukocytes, UA Negative Negative - 500+++ John/mcL [facility] Nitrite, UA Negative Negative - Positive [facility] pH, UA 6 5 - 9 [facility] Protein, UA Negative Negative - 1999(20) ++++ mg/dL [facility] Spec Grav, UA 1.025 1 - 1.03 [facility] Urobilinogen, UA 0.2 0.2 - 12 mg/dL [facility] US OB TRANSVAGINALon [address] [address] Ultrasound Report Signed Patient: SANNA RENDON MR#: [id number] : 1985 Acct:[id number] Age/Sex: 38 / F ADM Date: 09/11/24 Loc: US Attending Dr: Wilton Herrmann D.O. Ordering Physician: Wilton Herrmann D.O. Date of Service: 09/11/24 Procedure(s): US OB transvaginal Accession Number(s): [id number] cc: Wilton Herrmann D.O.; PENELOPE CASAS [address] [place] [address] Patient Name: SANNA RENDON MRN: MONSON [facility]:[id number] date: 1985 Sex: F Assigned Patient Location: US Current Patient Location: US Accession/Order Number: [id number] Exam Date: 09/11/2024 11:34 Report Date: 09/11/2024 [...] Montano M.D. 09/11/2024 11:36 AM Dictation Location: [place] [address] Electronically authenticated by: [id number] Y Date: 09/11/2024 11:36 Dictated By: Baljinder Montano M.D. Signed By: 09/11/24 1138 DD/ 1136 TD/TT: Tube Fitter: [facility] Radiology, Radiologi MD julio cesar - 09/11/2024 [place] [address] Ultrasound Report Signed Patient: SANNA RENDON MR#: [id number] : 1985 Acct:[id number] Age/Sex: 38 / F ADM Date: 09/11/24 Loc: US Attending Dr: Wilton Herrmann D.O. Ordering Physician: Wilton Herrmann D.O. Date of Service: 09/11/24 Procedure(s): US OB transvaginal Accession Number(s): [id number] cc: Wilton Herrmann D.O.; PENELOPE CASAS [place] [address] Patient Name: SANNA RENDON MRN: [id number] date: 1985 Sex: F Assigned Patient Location: US Current Patient Location: US Accession/Order Number: [id number] Exam Date: 09/11/2024 11:34 Report Date: 09/11/2024 [...] Montano M.D. 09/11/2024 11:36 AM Dictation Location: [place] [address] Electronically authenticated by: [id number] Y Date: 09/11/2024 11:36 Dictated By: Baljinder Montano M.D. Signed By: 09/11/24 1138 DD/ 1136 TD/TT: Tube Fitter: [facility] Radiology Study observation (narrative) [facility] US OB TRANSVAGINALOrdered By : Radiologist Radiology on 09-11-2024 [facility] Work Phone: [facility] [place] 09-09-2024 [place] [address] m[IU]/mL High 1-3 F [facility] Comment on above: Result Comment: 'F N ON < 1 - 3' ' 0.2 - 1 WEEK = 5 TO 50' ' 1 - 2 WEEKS = 50 - 500' ' 2 - 3 WEEKS = 100 - 5000' ' 3 - 4 WEEKS = 500 - 29797' ' 4 - 5 WEEKS = 1000 - 61254' ' 5 - 6 WEEKS = 52849 - 678018' ' 6 - 8 WEEKS = 14373 - 392921' ' 8 - 12 WEEKS = 62018 - 469580' Performed By: #### 2 [id number] #### [facility] [address] [place] [address] Ambulatory Visit Summaryon 0 09-07-2024 Ambulatory Visit Summary Ambulatory Visit Summary SANNA RENDON :1985 Visit Date:09/07/2024 Ambulatory Visit Instructions Your Diagnosis Viral URI with cough Cough Your Care Team Attending Physician - Aram QUINTEROS, Romulo Lynn Primary Care Physician - Penelope CASAS DO, FAAFP This Is Your Medications List Contact prescribing physician if questions or concerns enoxaparin (Lovenox 40 mg/0.4 mL Injection) ergocalciferol (Vitamin D) fluticasone nasal (Flonase 0.05 mg/inh Nyack) levothyroxine (levothyroxine 25 mcg (0.025 mg) Tab) [...] Appointments Sunday. 2024 8:20 AM EDT With: Penelope CASAS DO, FAAFP Where: [facility] [address], [place] [address]- Medications What How Much When Instructions Unchanged enoxaparin (Lovenox 40 mg/ 0.4 mL Injection) 40 Milligram Subcutaneous Every 24 hours Contact prescribing physician if questions or concerns Unchanged ergocalciferol (Vitamin D) 2,000 International unit By Mouth Every week Contact prescribing physician if questions or concerns Unchanged fluticasone nasal (Flonase 0.05 mg/ inh Nyack) 2 Sprays Nasal Inhalation Every day each [...] choosing us for your care. Normal [facility] Family Medicine Office/Clini c Noteon 09-07-2024 Family [...] with voice recognition software. Occasional wrong-word or ???gxtji-i-voed??? substitutions may have occurred due to the [...] days ago on Sunday. Has been using jiyo-frb-lrxurqm cough drops and Flonase for her allergies. [...] antibiotics un (more content not included)... Normal [facility] Comment on above: Result Comment: Elec tronically Signed By: Aram QUINTEROS, Romulo Lynn\.br\Date and Time Signed: 09/07/24 10:46 EDT Sisi 09-02-2024 BEA Telephone (HEMASA) SANNA RENDON ([id number]) 1985 F Date Time Provider Department 09/02/24 RACHAEL JOHNSON During your visit today, we recorded the following information about you: Rachael Johnson RN 09/02/2024 9:53 AM Signed Pt left a voicemail to inform she is approximately 5 weeks . She is asking any recommendations on med changes. Pt missed today's appt. Called and left VM to please call and schedule missed follow up MUNIRA. Fely: Please advise MARSHA Rush Vivek, MD 09/03/2024 12:52 PM Signed No change in meds. Rachael Johnson RN 09/03/2024 1:25 PM Signed Pt notified and appt for September. She denies any further questions, needs or concerns at this time. Rachael Johnson RN Allergies As of Date: 09/02/2024 [...] and gassy Date Reviewed: 08/26/2024 Reviewed by: Katherine Negrete APRN.ATHLETIC COACH - Fully Assessed Reason for Visit: Patient [...] D deficiency [E55.9] 05/28/2024 Encounter Status:Closed by RACHAEL JOHNSON on 09/03/24 Normal [facility] 08-30-2024 HCG.beta subunit Qn 558 m[IU]/mL High 1-3 [facility] Comment on above: Result Comment: 'F N ON < 1 - 3' ' 0.2 - 1 WEEK = 5 TO 50' ' 1 - 2 WEEKS = 50 - 500' ' 2 - 3 WEEKS = 100 - 5000' ' 3 - 4 WEEKS = 500 - 07648' ' 4 - 5 WEEKS = 1000 - 98166' ' 5 - 6 WEEKS = 99552 - 660135' ' 6 - 8 WEEKS = 66620 - 851047' ' 8 - 12 WEEKS = 67276 - 039420' Performed By: #### 2 [id number] #### [facility] [address] [place] [address] [facility] [place] 08-27-2024 HCG.beta subunit Qn 188 m[IU]/mL High 1-3 [facility] Comment on above: Result Comment: 'F N ON < 1 - 3' ' 0.2 - 1 WEEK = 5 TO 50' ' 1 - 2 WEEKS = 50 - 500' ' 2 - 3 WEEKS = 100 - 5000' ' 3 - 4 WEEKS = 500 - 25520' ' 4 - 5 WEEKS = 1000 - 04416' ' 5 - 6 WEEKS = 83423 - 499052' ' 6 - 8 WEEKS = 97594 - 199425' ' 8 - 12 WEEKS = 36970 - 633245' Performed By: #### 2 598015 #### [facility] [address] [place] [address] [facility] BEA [facility] (iORGA GroupNANI) SANNA RENDON ([id number]) 1985 F Date Time Provider Department 08/26/24 KRISTOFER CALIX During your visit today, we recorded [...] and gassy Date Reviewed: 08/26/2024 Reviewed by: Katherine Negrete APRN.ATHLETIC COACH - Fully Assessed Reason for Visit: Lab Orders [1688] Primary Visit Diagnosis:Antiphospholipid antibody positive [R76.0] Other Visit Diagnoses: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] Malaise and fatigue [R53.81, R53.83] Vitamin D deficiency [E55.9] Order(s):COMPLETE BLOOD COUNT AND DIFFERENTIAL [SQCBCDIF] Order #: [id number] FUTURE COMPREHENSIVE METABOLIC PANEL [SQCMP] Order #: [id number] FUTURE THYROID STIMULATING HORMONE [SQTSH] Order #: [id number] FUTURE IRON AND TIBC [SQIRON] Order #: [id number] FUTURE FERRITIN [SQFERR] Order #: [id number] FUTURE VITAMIN D 25 HYDROXY [SQVITD] Order #: [id number] FUTURE VITAMIN B12 [SQB12] Order #: [id number] FUTURE Prescriptions as of 08/26/2024 - enoxaparin [...] D deficiency [E55.9] 05/28/2024 Encounter Status:Closed by KATHERINE NEGRETE on 08/26/24 Normal [facility] 08-25-2024 HCG.beta subunit Qn 83 m[IU]/mL High 1-3 [facility] Comment on above: Result Comment: 'F N ON < 1 - 3' ' 0.2 - 1 WEEK = 5 TO 50' ' 1 - 2 WEEKS = 50 - 500' ' 2 - 3 WEEKS = 100 - 5000' ' 3 - 4 WEEKS = 500 - 28159' ' 4 - 5 WEEKS = 1000 - 13663' ' 5 - 6 WEEKS = 78931 - 180378' ' 6 - 8 WEEKS = 26885 - 018149' ' 8 - 12 WEEKS = 31688 - 341062' Performed By: #### 2 250745 #### [facility] [address] [place] [address] [facility] 08-23-2024 HCG.beta subunit Qn 22 m[IU]/mL High 1-3 [facility] Comment on above: Result Comment: 'F N ON < 1 - 3' ' 0.2 - 1 WEEK = 5 TO 50' ' 1 - 2 WEEKS = 50 - 500' ' 2 - 3 WEEKS = 100 - 5000' ' 3 - 4 WEEKS = 500 - 75456' ' 4 - 5 WEEKS = 1000 - 11839' ' 5 - 6 WEEKS = 30794 - 649006' ' 6 - 8 WEEKS = 56885 - 311057' ' 8 - 12 WEEKS = 66126 - 348836' Performed By: #### 2 826104 #### [facility] [address] [place] [address] CHEMISTRYOrdered By: SYSTEM SYSTEM on 08-23-2024 HCG.beta [...] 3 - 4 WEEKS = 500 - 28553' ' 4 - 5 WEEKS = 1000 - 79696' ' 5 - 6 WEEKS = 88907 - 761594' ' 6 - 8 WEEKS = 30971 - 659502' ' 8 - 12 WEEKS = 98676 - 568294' TSH Qn 1.86 m[IU]/L Normal 0.34 - 5.60 mcIU/mL Remisol Chem [facility]on 08-23-2024 TSH Qn 1.86 m[IU]/L Normal 0.34-5.60 [facility] Comment on above: Performed By: #### 2 [id number] #### [facility] [address] [place] [address] HCG ( test) Ql (U)o n 07-24-2024 Interpretation and review of laboratory results Normal [facility] Preg Test, Ur Negative Negative [facility] .Interpretation:on HCV Ab IA Ql Comment Invalid Interpretation Code [facility] Comment on above: Result Comment: Not infected with HCV unless early or acute infection is suspected (which may be delayed in an immunocompromised individual), or other evidence exists to indicate HCV infection. Performed at: [address] [id number] PhD Jd Montano Performed By: #### 2 [id number] #### [facility] [address] [place] [address] HCV Antibody RFX to Quant [facility] Doug 07-10-2024 HCV Ab IA Ql Non-Reactive Invalid Interpretation Code Non Reactive [facility] Comment on above: Result Comment: Perf ormed at: [address] [id number] PhD Jd Montano Performed By: #### 2 [id number] #### [facility] [address] [place] [address] HIV Screen 4th Generation wR fxon 07-10-2024 HIV 1+2 Ab+HIV1 p24 Ag IA Ql Non-Reactive Invalid Interpretation Code Non Reactive [facility] Comment on above: Result Comment: HIV- 1/HIV-2 antibodies and HIV-1 p24 antigen were NOT detected. There is no laboratory evidence of HIV infection. HIV Negative Performed at: [address] [id number] PhD Jd Montano Performed By: #### 9 [id number] #### [facility] [address] [place] [address] Hep Be Agon 07-10-2024 HBV e Ag IA Ql Negative Invalid Interpretation Code Negative [facility] Comment on above: Result Comment: Perf ormed at: [address] [id number] PhD Jd Montano Performed By: #### 2 [id number] #### [facility] [address] [place] [address] Hep Bs Agon 07-10-2024 HBV surface Ag IA Ql Negative Invalid Interpretation Code Negative [facility] Comment on above: Result Comment: Perf ormed at: [facility] [address] [place], [place] [id number] PhD Jd Montano Performed By: #### 2 573785 #### [facility] [address] [place] [address] CHEMISTRYOrdered By: SYSTEM SYSTEM on 07-09-2024 Albumin [...] 07-09-2024 Albumin [Mass/Vol] 5.0 g/dL Normal 3.3-5.0 [facility] Comment on above: Performed By: #### 2 351213 #### [facility] [address] [place] [address] Albumin/Globulin (S) [Mass conc ratio] 1.6 Normal 1.1-2.2 [facility] Comment on above: Performed By: #### 2 102141 #### [facility] [address] [place] [address] ALP [Catalytic activity/Vol] 49 Int._Unit/L Normal 21-98 [facility] Comment on above: Performed By: #### 2 843539 #### [facility] [address] [place] [address] ALT No additional P-5'-P [Catalytic activity/Vol] 18 Int._Unit/L Normal 6-46 [facility] Comment on above: Performed By: #### 2 258255 #### [facility] [address] [place] [address] Anion gap [Moles/Vol] 13 mmol/L Normal 6-16 [facility] Comment on above: Performed By: #### 2 939891 #### [facility] [address] [place] [address] AST [Catalytic activity/Vol] 15 Int._Unit/L Normal 5-43 [facility] Comment on above: Performed By: #### 2 002114 #### [facility] [address] [place] [address] Bilirubin [Mass/Vol] 0.4 mg/dL Normal 0.0-1.1 [facility] Comment on above: Performed By: #### 2 045107 #### [facility] [address] [place] [address] Calcium [Mass/Vol] 10.0 mg/dL Normal 8.9-11.1 [facility] Comment on above: Performed By: #### 2 213150 #### [facility] [address] [place] [address] Chloride [Moles/Vol] 100 mmol/L Low 101-111 [facility] Comment on above: Performed By: #### 2 966746 #### [facility] [address] [place] [address] CO2 [Moles/Vol] 25 mmol/L Normal 21-31 [facility] Comment on above: Performed By: #### 2 347069 #### [facility] [address] [place] [address] Creatinine [Mass/Vol] 0.7 mg/dL Normal 0.5-1.3 [facility] Comment on above: Performed By: #### 2 467846 #### [facility] [address] [place] [address] Globulin (S) [Mass/Vol] 3.1 g/dL Normal 1.4-4.0 [facility] Comment on above: Performed By: #### 2 992223 #### [facility] [address] [place] [address] Glucose [Mass/Vol] 82 mg/dL Normal 55-199 [facility] Comment on above: Performed By: #### 2 976219 #### [facility] [address] [place] [address] Potassium [Moles/Vol] 3.8 mmol/L Normal 3.5-5.3 [facility] Comment on above: Performed By: #### 2 333204 #### [facility] [address] [place] [address] Protein [Mass/Vol] 8.1 g/dL High 6.0-7.8 [facility] Comment on above: Performed By: #### 2 332106 #### [facility] [address] [place] [address] Sodium [Moles/Vol] 134 mmol/L Low 135-145 [facility] Comment on above: Performed By: #### 2 386615 #### [facility] [address] [place] [address] Urea nitrogen [Mass/Vol] 7 mg/dL Normal 5-21 [facility] Comment on above: Performed By: #### 2 630923 #### [facility] [address] [place] [address] Urea nitrogen/Creatinine [Mass ratio] 10 No Units Normal 10-20 [facility] Comment on above: Performed By: #### 2 720610 #### [facility] [address] [place] [address] eGFRon 07-09-2024 eGFR 113 mL/min/1.73 m2 Normal >=59 [facility] Comment on above: Performed By: #### 1 [id number] #### [facility] [address] [place] [address] Family Medicine Office/Clini c Noteon 07-08-2024 Family [...] lifestyle choices. Follow-up With When Contact Information Penelope CASAS DO, FAAFP, FAM, PED [address], [place] [address]- Additional Instructions: Patient Education Bradycardia, Adult Problem [...] Abdominal pain (more content not included)... Normal [facility] Comment on above: Result Comment: Elec tronically Signed By: Inze Banegas\.br\Date and Time Signed: 07/08/24 08:54 EDT Ambulatory Visit Summaryon 0 07-07-2024 Ambulatory Visit Summary Ambulatory Visit Summary JUSTICESANNA ROOT :1985 Visit Date:07/07/2024 Ambulatory Visit Instructions Your Care Team Attending Physician - Inez Banegas Primary Care Physician - Penelope CASAS DO, FAAFP This Is Your Medications List Contact prescribing physician if questions or concerns enoxaparin (Lovenox 40 mg/0.4 mL Injection) ergocalciferol (Vitamin D) famotidine (Pepcid 40 mg Tab) fluconazole (Diflucan 150 mg Tab) fluticasone nasal (Flonase 0.05 mg/inh Nyack) levothyroxine (levothyroxine 25 mcg (0.025 mg) Tab) [...] Appointments Sunday. 2024 8:20 AM EDT With: Penelope CASAS DO, FAAFP Where: [facility] [address] [place] [address]- You Need to Schedule the Following Appointments Follow Up with Penelope CASAS DO, FAAFP, CHRIS, PED When: Where: [address] [place] [address]- Medications What How Much When [...] Unchanged fluticasone nasal (Flonase 0.05 mg/ inh Nyack) 2 Sprays Nasal Inhalation Every day each [...] for choosing us for your care. Normal [facility] 07-07-2024 HCG.beta subunit Qn 1 m[IU]/mL Normal 1-3 [facility] Comment on above: Result Comment: 'F N ON < 1 - 3' ' 0.2 - 1 WEEK = 5 TO 50' ' 1 - 2 WEEKS = 50 - 500' ' 2 - 3 WEEKS = 100 - 5000' ' 3 - 4 WEEKS = 500 - 08901' ' 4 - 5 WEEKS = 1000 - 90128' ' 5 - 6 WEEKS = 45657 - 510815' ' 6 - 8 WEEKS = 17050 - 218078' ' 8 - 12 WEEKS = 23017 - 849357' Performed By: #### 2 295408 #### [facility] [address] [place] [address] MTHFR 2 Mutationson 07-08-19 25 MTHFR Interpretation See Note Normal [facility] Comment on above: Result Comment: Indication for testing: Determine genetic contribution to hyperhomocysteinemia. 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 The [employer] Practice Guidelines indicate [...] a contributing factor to hyperhomocysteinemia. Variants Tested: c.665C>T(p.Vqd997Ejn) and c.1286A>C(p.Mob477Nuf). (legacy names C677T and Q0778O, respectively). Clinical Sensitivity: Undefined; hyperhomocysteinemia is caused [...] developed and its performance characteristics determined by [facility]. It has not been cleared or approved by the [place] Food and Drug Administration. This test was performed in a CLIA certified laboratory and is intended for clinical purposes. Counseling and informed consent are recommended for genetic testing. Consent forms are available online. 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 No antibodies to Anti-Nuclear Antibodies (NASEEM) detected. The Extractable Nuclear Antigen Antibodies (SCHOOL BUS MONITOR, Christianson, SSA 52, SSA 60, Scleroderma, Brianna-1 [...] dsDNA, histones, SS-A (Ro), SS-B (La), Christianson, Christianson/SCHOOL BUS MONITOR, Scl-70, Brianna-1, centromeric proteins, other antigens extracted from the HEp-2 cell nucleus. NASEEM ALEX assays have been reported to have lower sensitivities than NASEEM IFA for systemic autoimmune rheumatic diseases (SARD). Negative results do not necessarily rule out SARD. Performed By: [facility] [address] [place] [address] Neurology Epilepsy Physician: Yayo Moncada MD, PhD CLIA Number: [id number] Brianna-1 (Histidyl-tRNA Syntheta se) Ab, IgGon 07-04-2024 Brianna-1 (Histidyl-tRNA Synthetase) Ab, IgG 0 AU/mL Normal 0-40 [facility] [...] (interstitial lung disease), Raynaud phenomenon, arthritis, and auto engine mechanic's hands (implicated in antisynthetase syndrome). Performed By: [facility] [address] [place] [address] Neurology Epilepsy Physician: Yayo Moncada MD, PhD CLIA Number: [id number] SSA and SSB Abs, IgGon 07-04 SSA 52 (Ro) (KELLEN) Ab, IgG 1 AU/mL Normal 0-40 [facility] Comment [...] (KELLEN) Ab, IgG 0 AU/mL Normal 0-40 [facility] [...] (PSS) also have this antibody. Performed By: [facility] [address] [place] [address] Neurology Epilepsy Physician: Yayo Moncada MD, PhD CLIA Number: [id number] Cardiolipin Antibodies, IgG/ IgMon 07-03-2024 Cardiolipin Ab IgG 95 GPL Critically high <=14 [facility] Comment on above: Result Comment: INTE [...] other criteria phospholipid antibody tests. Performed by [facility], [address] [place] [address] www.[employer], Zhang Bledsoe MD, Lab. Director CLIA Number: [id number] Cardiolipin Ab IgM <10 Normal <=12 [facility] Comment on above: Result [...] other criteria phospholipid antibody tests. Performed by [facility], [address] [place] [address] www[employer], Zhang Bledsoe MD, Lab. Director CLIA Number: [id number] F-Actin (Smooth Muscle) Anti body, IgAon 07-03-2024 F-Actin Ab, IgA 1.8 Units Normal 0.0-24.9 [facility] Comment on above: Result [...] should be confirmed with biopsy. Performed By: [facility] [address] [place] [address] Neurology Epilepsy Physician: Yayo Moncada MD, PhD CLIA Number: [id number] dsDNA Ab, IgG by ELISAon dsDNA Ab, IgG by ALEX 4 IU Normal 0-24 [facility] Comment on above: Result [...] immunosorbent assay (ALEX). If ordered as reflex ([id number]), positive ALEX results (>24 IU) will be [...] recommendations for testing may be found at [email or web address]. Performed by [facility], [address] [place] [address] www[employer], Zhang Bledsoe MD, Lab. Director [place] Number: [id number] C-Reactive Proteinon 025 CRP [Mass/Vol] mg/L Normal 0.0-5.0 [facility] Comment on above: Performed By: #### C RP #### [facility] [address] [place] [id number] Sedimentation Rateon 025 Sedimentation Rate 18 mm Normal 0-20 [facility] Comment on above: Result Comment: ESR Units mm/Hr Performed By: #### E SR #### [facility] [address] [place] [id number] Family Medicine Office/Clini c Noteon 06-30-2024 Family [...] bedtime), # 90 tab(s), Refills(s) 4, Pharmacy: [facility] 1985, 168, cm, 06/30/24 8:36:00 EST, Height/Length Dosing, 97.2, kg, 06/30/24 8:36:00 EST, Weight Dosing Total time spent preparing the chart, conducting of the encounter with the patient and family and time spent documenting, reviewing, and ordering tests was 25 minutes. Follow-up With When Contact Information Penelope CASAS DO, FAAFP, FAM, PED In [address] [place] [address]- ([phone] (more content not included)... Normal [facility] Comment on above: Result Comment: Elec tronically Signed By: Penelope CASAS DO, FAAFP\.br\Date and Time Signed: 06/30/24 09:24 EST RECURRENT VAGINITIS (HTRX)on 06-25-2024 ATOPOBIUM VAGINAE 0 [facility] ATOPOBIUM VAGINAE Not detected [facility] BVAB 2,3 (BACTERIAL VAGINOSIS ASSOCIATED BACTERIA 2, 3); MOBILUNCUS SPP 0 [facility] BVAB 2,3 (BACTERIAL VAGINOSIS ASSOCIATED BACTERIA 2, 3); MOBILUNCUS SPP Not detected [facility] ALIA ALBICANS, PARAPSILOSIS, TROPICALIS 0 [facility] ALIA ALBICANS, PARAPSILOSIS, TROPICALIS Not detected [facility] ALIA GLABRATA 0 [facility] ALIA GLABRATA Not detected [facility] ALIA KRUSEI 0 [facility] ALIA KRUSEI Not detected [facility] [...] TRICHOMONAS VAGINALIS Not detected [facility] Urinalysis macro (dipstick) panel (U)on 06-23-2024 Bilirubin, UA Negative Negative - 4(70) +++ mg/dL [facility] Blood, UA Negative Negative - 50 Max/mcL [facility] Clarity, UA Clear [facility] Color, UA Yellow [facility] Glucose, UA Negative Negative - 1999(110) ++++ mg/dL [facility] Interpretation and review of laboratory results Normal [facility] Ketones, UA Negative Negative - 160(16) ++++ mg/dL [facility] Leukocytes, UA Negative Negative - 500+++ John/mcL [facility] Nitrite, UA Negative Negative - Positive [facility] pH, UA 7 5 - 9 [facility] Protein, UA Negative Negative - 1999(20) ++++ mg/dL [facility] Spec Grav, UA 1.01 1 - 1.03 [facility] Urobilinogen, UA 0.2 0.2 - 12 mg/dL [facility] Ambulatory Visit Summaryon 0 06-19-2024 Ambulatory Visit Summary Ambulatory Visit Summary SANNA RENDON :1985 Visit Date:06/19/2024 Ambulatory Visit Instructions Your Diagnosis Sinusitis, Sinusitis Yeast infection Your Care Team Attending Physician - KEVEN YEBOAH, MANDI Primary Care Physician - Penelope CASAS DO, FAAFP This Is Your Medications List azithromycin (Zithromax 250 mg Tab) fluconazole (Diflucan 150 mg Tab) Contact prescribing physician if questions or concerns enoxaparin (Lovenox 40 mg/0.4 mL Injection) ergocalciferol (Vitamin D) fluticasone nasal (Flonase 0.05 mg/inh Nyack) levothyroxine (levothyroxine 25 mcg (0.025 mg) Tab) metformin (MetFORMIN (Eqv-Glucophage XR) 500 mg oral tablet, extended release) Procedures Performed Biopsy of breast (06/14/2013), Extraction of wisdom tooth (2006), endoscopy for ovarian cysts to drain. Discharge Vitals Heart Rate (Peripheral) 74 Blood Pressure 126/72 Weight 98.4 kg Weight 216.935 lb What to do next Scheduled Follow-Up Appointments Sunday 2:20 PM EDT With: Penelope CASAS DO, FAAFP Where: [facility] [address], [place] [address]- Medications What How Much When Why Instructions New azithromycin (Zithromax 250 mg Tab) 1 Packets By Mouth As Directed Sinusitis Duration: 5 Days Refills: 1 as directed on package labeling Pickup at [facility] 1985 New fluconazole (Diflucan 150 mg Tab) 1 Tablets By Mouth Every 7 days Yeast infection Refills: 1 Pickup at [facility] 1985 Unchanged enoxaparin (Lovenox 40 mg/ 0.4 mL Injection) 40 Milligram Subcutaneous Every 24 hours Contact prescribing physician if questions or concerns Unchanged ergocalciferol (Vitamin D) 2,000 International unit By Mouth Every week Contact prescribing physician if questions or concerns Unchanged fluticasone nasal (Flonase 0.05 mg/ inh Nyack) 2 Sprays Nasal Inhalation Every day each [...] physician if questions or concerns Pharmacy Information [facility] 1985: [address] [place], [place] [id number] [phone] Allergies Milk Products (Illness) ciprofloxacin (Numbness and [...] choosing us for your care. Normal [facility] Family Medicine Office/Clini c Noteon 06-19-2024 Family Medicine Office/Clinic Note Family Medicine Office/Clinic Note Chief Complaint Sinus pressure HPI Staff complaints of sinus pressure on right side of face, has a history of CVA notes numbness on right side of face Onset: 2-3 weeks OTC tried: tylenol History of Present Illness Sanna is a 38 year old female who [...] day(s), # 6 tab(s), Refills(s) 1, Pharmacy: [facility] 1985, 168, cm, 06/09/24 14:03:00 EST, Height/Length Dosing, 98.4, kg, 06/19/24 16:19:00 EST, Weight Dosing Yeast infection (B37.9: Candidiasis, unspecified) Ordered: fluconazole, 150 mg = 1 tab(s), Oral, q7day, # 4 tab(s), Refills(s) 1, Pharmacy: [facility] 1985, 168, cm, 06/09/24 14:03:00 [...] Oral, q7day, 1 refills Flonase 0.05 mg/inh Nyack, 2 spray(s), Nasal, Daily, 11 refills levothyroxine [...] Refuses influe (more content not included)... Normal [facility] Comment on above: Result Comment: Elec tronically Signed By: MANDI BRYANT\.br\Date and Time Signed: 06/19/24 16:37 EST CBC w/ Auto Diffon 5 Basophils/100 WBC (Bld) 0.3 % Normal 0.0-2.0 [facility] Comment on above: Performed By: #### 2 [id number] #### [facility] [address] [place] [address] Basophils/Leukocytes Auto (Bld) [Pure # fraction] 0.0 E9/L Normal 0.0-0.2 [facility] Comment on above: Performed By: #### 2 721136 #### [facility] [address] [place] [address] Eosinophils (Bld) [#/Vol] 0.0 E9/L Normal 0.0-0.5 [facility] Comment on above: Performed By: #### 2 665357 #### [facility] [address] [place] [address] Eosinophils/100 WBC (Bld) 0.3 % Normal 0.0-8.0 [facility] Comment on above: Performed By: #### 2 287090 #### [facility] [address] [place] [address] Erythrocyte distribution width (RBC) [Ratio] 14.0 % Normal 10.9-14.2 [facility] Comment on above: Performed By: #### 2 523434 #### [facility] [address] [place] [address] Hematocrit (Bld) [Volume fraction] 40.9 % Normal 34.0-46.0 [facility] Comment on above: Performed By: #### 2 789584 #### [facility] [address] [place] [address] Hemoglobin (Bld) [Mass/Vol] 13.9 g/dL Normal 12.0-16.0 [facility] Comment on above: Performed By: #### 2 564372 #### [facility] [address] [place] [address] Lymphocytes (Bld) [#/Vol] 2.8 E9/L Normal 1.0-4.0 [facility] Comment on above: Performed By: #### 2 013550 #### [facility] [address] [place] [address] Lymphocytes/100 WBC (Bld) 24.6 % Normal 14.0-50.0 [facility] Comment on above: Performed By: #### 2 575385 #### [facility] [address] [place] [address] MCH (RBC) [Entitic mass] 30.7 pg Normal 27.0-34.0 [facility] Comment on above: Performed By: #### 2 155620 #### [facility] [address] [place] [address] MCHC (RBC) [Mass/Vol] 33.9 g/dL Normal 31.4-36.0 [facility] Comment on above: Performed By: #### 2 656525 #### [facility] [address] [place] [address] MCV (RBC) [Entitic vol] 90.6 fL Normal 80.0-100.0 [facility] Comment on above: Performed By: #### 2 776694 #### [facility] [address] [place] [address] Monocytes (Bld) [#/Vol] 0.6 E9/L Normal 0.2-1.0 [facility] Comment on above: Performed By: #### 2 877012 #### [facility] [address] [place] [address] Neutrophils (Bld) [#/Vol] 8.0 E9/L High 2.0-7.5 [facility] Comment on above: Performed By: #### 2 665363 #### [facility] [address] [place] [address] Neutrophils/100 WBC (Bld) 69.6 % Normal 36.0-75.0 [facility] Comment on above: Performed By: #### 2 698489 #### [facility] [address] [place] [address] Platelet 388.0 E9/L Normal 150.0-500. 0 [facility] Comment on above: Performed By: #### 2 416490 #### [facility] [address] [place] [address] Platelet mean volume (Bld) [Entitic vol] 8.2 fL Normal 6.4-10.8 [facility] Comment on above: Performed By: #### 2 009619 #### [facility] [address] [place] [address] RBC (Bld) [#/Vol] 4.5 E12/L Normal 4.3-5.9 [facility] Comment on above: Performed By: #### 2 655733 #### [facility] [address] [place] [address] WBC corrected for nucl RBC Auto (Bld) [#/Vol] 11.5 E9/L High 4.0-11.0 [facility] Comment on above: Performed By: #### 2 689210 #### [facility] [address] [place] [address] HEMATOLOGYOrdered By: SYSTEM SYSTEM on 06-12-2024 Basophils/100 [...] 06-09-2024 Ambulatory Visit Summary Ambulatory Visit Summary SANNA RENDON :1985 Visit Date:06/09/2024 Ambulatory Visit Instructions Your Diagnosis Antiphospholipid antibody with hypercoagulable state H/O: CVA Gestational diabetes BMI 35.0-35.9,adult Morbid obesity Your Care Team Attending Physician - Penelope CASAS DO, FAAFP Primary Care Physician - Penelope CASAS DO, FAAFP This Is Your Medications List fluticasone nasal (Flonase 0.05 mg/inh Nyack) Contact prescribing physician if questions or concerns [...] Follow-Up Appointments Sunday 2:20 PM EDT With: Penelope CASAS DO, FAAFP Where: [facility] [address] [place] [address], [place] [address]- Medications What How Much When Instructions New fluticasone nasal (Flonase 0.05 mg/ inh Nyack) 2 Sprays Nasal Inhalation Every day Refills: 11 each nostril Pickup at [id number] Unchanged enoxaparin (Lovenox 40 mg/ 0.4 mL [...] physician if questions or concerns [id number] [address] [place] [id number] [phone] Allergies Milk Products (Illness) ciprofloxacin (Numbness and [...] for choosing us for your care. Normal [facility] BhCG Quanton 06-09-2024 HCG.beta subunit Qn 2 m[IU]/mL Normal 1-3 [facility] Comment on above: Result Comment: 'F N ON < 1 - 3' ' 0.2 - 1 WEEK = 5 TO 50' ' 1 - 2 WEEKS = 50 - 500' ' 2 - 3 WEEKS = 100 - 5000' ' 3 - 4 WEEKS = 500 - 61056' ' 4 - 5 WEEKS = 1000 - 35362' ' 5 - 6 WEEKS = 08356 - 805545' ' 6 - 8 WEEKS = 63082 - 663830' ' 8 - 12 WEEKS = 35145 - 081051' Performed By: #### 2 411289 #### [facility] [address] [place] [address] CHEMISTRYOrdered By: SYSTEM SYSTEM on 06-09-2024 TSH [...] from inside ear, not outside Moved from [place] Review of Systems PHQ Score Initial Depression [...] antibody with hypercoagulable state (D68.61: Antiphospholipid syndrome) [facility] Department of hematology/oncology following and treating with Lovenox, please see their consultation 05/28/2024. Treats with Lovenox 40 mg subcu every 24 hours 2. H/O: CVA (Z86.79: Personal history of other diseases of the circulatory system) Please see #1. 3. Gestational diabetes (O24.419: Gestational diabetes mellitus in , unspecified control) [employer], [facility] following. Metformin XR 500 mg tabs 2 [...] Other Testing: Follow-up With When Contact Information PRAVEEN RESENDEZ FAAFP, Penelope Tony, CHRIS, PED In 6 months [address], [place] [address]- [phone] (more content not included)... Normal [facility] Comment on above: Result Comment: Elec tronically Signed By: Penelope CASAS DO, FAAFP\tana\Date and Time Signed: 06/09/24 14:24 EST TSHon 06-09-2024 TSH Qn 1.97 m[IU]/L Normal 0.34-5.60 [facility] Comment on above: Performed By: #### 2 417653 #### [facility] [address] [place] [address] BhCG Quanton 05-31-2024 HCG.beta subunit Qn 6 m[IU]/mL High 1-3 [facility] Comment on above: Result Comment: 'F N ON < 1 - 3' ' 0.2 - 1 WEEK = 5 TO 50' ' 1 - 2 WEEKS = 50 - 500' ' 2 - 3 WEEKS = 100 - 5000' ' 3 - 4 WEEKS = 500 - 63686' ' 4 - 5 WEEKS = 1000 - 50425' ' 5 - 6 WEEKS = 06443 - 626689' ' 6 - 8 WEEKS = 56825 - 962031' ' 8 - 12 WEEKS = 09718 - 482932' Performed By: #### 2 633051 #### [facility] [address] [place] [address] 25(OH)D3 [facility] 25-hydroxyvitamin D3 [Mass/Vol] 27.8 ng/mL Low 31.0-80.0 [facility] Comment on above: Order Comment: Speci men Type: BLOOD SPECIMENOrdering Facility: [facility] Address: [address] [place] [address] Result Comment: Clas sification of 25 [place] Vitamin D status: Deficiency/Insufficiency: < or = 30 ng/ml. Sufficiency/Optimal Levels: 31-80 ng/mL Toxicity: > 100 ng/mL. Test performed by chemiluminescent immunoassay. Performed By: #### 1 989-3 ####[facility] LABCLIA [id number] [place] [address], [place] [address] [place] CBC W Auto Differential pane l (Bld)on 05-28-2024 Basophils (Bld) [#/Vol] 0.03 10*3/uL Normal <0.11 [facility] Comment on above: Order Comment: Speci men Type: BLOOD SPECIMENOrdering Facility: [facility] Address: [address] [place] [address] Performed By: #### 5 7021-8 ####[facility] LABCLIA [id number] [place] [address] Basophils/100 WBC (Bld) 0.4 % Normal [facility] Comment on above: Order Comment: Speci men Type: BLOOD SPECIMENOrdering Facility: [facility] Address: [address] [place] [address] Performed By: #### 5 7021-8 ####[facility] LABCLIA [id number] [place] [address] Differential cell count method Nom (Bld) Auto Normal [facility] Comment on above: Order Comment: Speci men Type: BLOOD SPECIMENOrdering Facility: [facility] Address: [address] [place] [address] Performed By: #### 5 7021-8 ####[facility] LABCLIA [id number] [place] [address] Eosinophils (Bld) [#/Vol] 0.08 10*3/uL Normal <0.46 [facility] Comment on above: Order Comment: Speci men Type: BLOOD SPECIMENOrdering Facility: [facility] Address: [address] [place] [address] Performed By: #### 5 7021-8 ####[facility] LABCLIA [id number] [place] [address] Eosinophils/100 WBC (Bld) 0.9 % Normal [facility] Comment on above: Order Comment: Speci men Type: BLOOD SPECIMENOrdering Facility: [facility] Address: [address] [place] [address] Performed By: #### 5 7021-8 ####[facility] LABCLIA [id number] [place] [address] Erythrocyte distribution width (RBC) [Ratio] 13.8 % Normal 11.5-15.0 [facility] Comment on above: Order Comment: Speci men Type: BLOOD SPECIMENOrdering Facility: [facility] Address: [address] [place] [address] Performed By: #### 5 7021-8 ####[facility] LABCLIA [id number] [place] [address] Hematocrit (Bld) [Volume fraction] 34.0 % Low 36.0-46.0 [facility] Comment on above: Order Comment: Speci men Type: BLOOD SPECIMENOrdering Facility: [facility] Address: [address] [place] [address] Performed By: #### 5 7021-8 ####[facility] LABCLIA [id number] [place] [address] Hemoglobin (Bld) [Mass/Vol] 11.5 g/dL Normal 11.5-15.5 [facility] Comment on above: Order Comment: Speci men Type: BLOOD SPECIMENOrdering Facility: [facility] Address: [address] [place] [address] Performed By: #### 5 7021-8 ####[facility] LABCLIA [id number] [place] [address] Immature granulocytes (Bld) [#/Vol] 0.03 10*3/uL Normal <0.10 [facility] Comment on above: Order Comment: Speci men Type: BLOOD SPECIMENOrdering Facility: [facility] Address: [address] [place] [address] Performed By: #### 5 7021-8 ####[facility] LABCLIA [id number] [place] [address] Immature granulocytes/100 WBC (Bld) 0.4 % Normal [facility] Comment on above: Order Comment: Speci men Type: BLOOD SPECIMENOrdering Facility: [facility] Address: [address] [place] [address] Performed By: #### 5 7021-8 ####[facility] LABCLIA [id number] [place] [address] Lymphocytes (Bld) [#/Vol] 2.86 10*3/uL Normal 1.00-4.00 [facility] Comment on above: Order Comment: Speci men Type: BLOOD SPECIMENOrdering Facility: [facility] Address: [address] [place] [address] Performed By: #### 5 7021-8 ####[facility] LABCLIA [id number] [place] [address] Lymphocytes/100 WBC (Bld) 33.4 % Normal [facility] Comment on above: Order Comment: Speci men Type: BLOOD SPECIMENOrdering Facility: [facility] Address: [address] [place] [address] Performed By: #### 5 7021-8 ####[facility] LABCLIA [id number] [place] [address] MCH (RBC) [Entitic mass] 30.8 pg Normal 26.0-34.0 [facility] Comment on above: Order Comment: Speci men Type: BLOOD SPECIMENOrdering Facility: [facility] Address: [address] [place] [address] Performed By: #### 5 7021-8 ####[facility] LABCLIA [id number] [place] [address] MCHC (RBC) [Mass/Vol] 33.8 g/dL Normal 30.5-36.0 [facility] Comment on above: Order Comment: Speci men Type: BLOOD SPECIMENOrdering Facility: [facility] Address: [address] [place] [address] Performed By: #### 5 7021-8 ####[facility] LABCLIA [id number] [place] [address] MCV (RBC) [Entitic vol] 91.2 fL Normal 80.0-100.0 [facility] Comment on above: Order Comment: Speci men Type: BLOOD SPECIMENOrdering Facility: [facility] Address: [address] [place] [address] Performed By: #### 5 7021-8 ####[facility] LABCLIA [id number] [place] [address] Monocytes (Bld) [#/Vol] 0.66 10*3/uL Normal <0.87 [facility] Comment on above: Order Comment: Speci men Type: BLOOD SPECIMENOrdering Facility: [facility] Address: [address] [place] [address] Performed By: #### 5 7021-8 ####[facility] LABCLIA [id number] [place] [address] Monocytes/100 WBC (Bld) 7.7 % Normal [facility] Comment on above: Order Comment: Speci men Type: BLOOD SPECIMENOrdering Facility: [facility] Address: [address] [place] [address] Performed By: #### 5 7021-8 ####[facility] LABCLIA [id number] [place] [address] Neutrophils (Bld) [#/Vol] 4.90 10*3/uL Normal 1.45-7.50 [facility] Comment on above: Order Comment: Speci men Type: BLOOD SPECIMENOrdering Facility: [facility] Address: [address] [place] [address] Performed By: #### 5 7021-8 ####[facility] LABCLIA [id number] [place] [address] Neutrophils/100 WBC (Bld) 57.2 % Normal [facility] Comment on above: Order Comment: Speci men Type: BLOOD SPECIMENOrdering Facility: [facility] Address: [address] [place] [address] Performed By: #### 5 7021-8 ####[facility] LABCLIA [id number] [place] [address] Nucleated RBC (Bld) [#/Vol] 10*3/uL Normal <0.01 [facility] Comment on above: Order Comment: Speci men Type: BLOOD SPECIMENOrdering Facility: [facility] Address: [address] [place] [address] Performed By: #### 5 7021-8 ####[facility] LABCLIA [id number] [place] [address] Nucleated RBC/100 WBC (Bld) [Ratio] 0.0 /100 WBC Normal [facility] Comment on above: Order Comment: Speci men Type: BLOOD SPECIMENOrdering Facility: [facility] Address: [address] [place] [address] Performed By: #### 5 7021-8 ####[facility] LABCLIA [id number] [place] [address] Platelet mean volume (Bld) [Entitic vol] 9.6 fL Normal 9.0-12.7 [facility] Comment on above: Order Comment: Speci men Type: BLOOD SPECIMENOrdering Facility: [facility] Address: [address] [place] [address] Performed By: #### 5 7021-8 ####[facility] LABCLIA [id number] [place] [address] Platelets (Bld) [#/Vol] 345 10*3/uL Normal 150-400 [facility] Comment on above: Order Comment: Speci men Type: BLOOD SPECIMENOrdering Facility: [facility] Address: [address] [place] [address] Performed By: #### 5 7021-8 ####[facility] LABCLIA [id number] [place] [address] RBC (Bld) [#/Vol] 3.73 10*6/uL Low 3.90-5.20 [facility] Comment on above: Order Comment: Speci men Type: BLOOD SPECIMENOrdering Facility: [facility] Address: [address] [place], [place] [address] Performed By: #### 5 7021-8 ####[facility] LABIA [id number] [place] [address] WBC (Bld) [#/Vol] 8.56 10*3/uL Normal 3.70-11.00 [facility] Comment on above: Order Comment: Speci men Type: BLOOD SPECIMENOrdering Facility: [facility] Address: [address] [place], [place] [address] Performed By: #### 5 7021-8 ####[facility] LABIA [id number] [place] [address] CNOVSPon 05-28-2024 OVS Visit (SP) Office ( [facility]) SANNA RENDON ([id number]) 1985 F Date Time Provider Department 05/28/24 1:00 PM KRISTOFER CALIX During your visit today, we recorded the following information about you: Temperature Pulse Respiration Blood pressure 97.6 degrees 72/minute 16/minute 123/83 Weight Height 98.5 kg 1.677 m Kristofer Calix MD 05/29/2024 9:13 AM Signed NAME: Sanna Rendon CLINIC NO.: [id number] DATE OF SERVICE: May 28, 2024 (Levon) Some elements in this clinic note that are critical to medical decision making have been carefully reviewed and included from a prior clinic note dated: January 02, 2024 (Levon) Additional Clinicians involved in Sanna Rendon's care: Drs. Herrmann, Jorge Monge, Humaira Gaviria, Dr. Boothe CC: hypercoag state. ASSESSMENT: 38 year old woman presents with a prior history of CVA in 2016 and an antiphospholipid antibody that was identified much later in 2018. These were found in [place], [place]. I don't have access to these [...] a target-like rash shortly before presenting to [facility] in 2016 with headaches and was [...] ____ HPI: Updated Visit, May 28, 2024: Sanna returns today for a follow up. She [...] at home. Updated Visit, January 02, 2024: Sanna returns today for a follow up. She [...] if indicated. Updated Visit, June 15, 2023: Sanna returns today with her youngest two children. She is still breast feeding. Numbness and vision changes both have subsided, she still plans to see Dr. Monge soon. When she had a stroke in [place], she had symptoms up to a month [...] losing weight. (more content not included)... Normal [facility] Sisi 05-28-2024 TORN Telephone (NCCAP) SANNA RENDON ([id number]) 1985 F Date Time Provider Department 05/28/24 KRISTOFER CALIX During your visit today, we recorded the following information about you: Taylor Escudero 05/28/2024 1:45 PM Signed Triage to call with iron results Rachael Johnson, MARSHA 05/30/2024 8:23 AM Signed Fely: Iron studies normal, any recommendations for Vit D? Please advise Kristofer Calix MD 06/02/2024 12:31 PM Signed Vitamin D OTC 5000 international unit(s) daily please. Rachael Johnson, MARSHA 06/02/2024 12:42 PM Signed Pt aware and agreeable to plan of care. She will obtain OTC Vit D, as recommended. Appts verified. Rachael Johnson RN Allergies As of Date: 05/28/2024 [...] and gassy Date Reviewed: 05/28/2024 Reviewed by: Kaur Dunham MA - Fully Assessed Reason for [...] Status:Closed by TAYLOR ESCUDERO on 05/28/24 Normal [facility] Comprehensive metabolic 2000 panelon 05-28-2024 Albumin [Mass/Vol] 4.4 g/dL Normal 3.9-4.9 [facility] Comment on above: Order Comment: Speci men Type: BLOOD SPECIMENOrdering Facility: [facility] Address: [address] [place] [address] Performed By: #### 2 4323-8 ####[facility] LABCLIA [id number] [place] [address] ALP [Catalytic activity/Vol] 59 U/L Normal 34-123 [facility] Comment on above: Order Comment: Speci men Type: BLOOD SPECIMENOrdering Facility: [facility] Address: [address] [place] [address] Performed By: #### 2 4323-8 ####[facility] LABCLIA [id number] [place] [address] ALT [Catalytic activity/Vol] 12 U/L Normal 7-38 [facility] Comment on above: Order Comment: Speci men Type: BLOOD SPECIMENOrdering Facility: [facility] Address: [address] [place] [address] Performed By: #### 2 4323-8 ####[facility] LABCLIA [id number] [place] [address] Anion gap [Moles/Vol] 10 mmol/L Normal 8-15 [facility] Comment on above: Order Comment: Speci men Type: BLOOD SPECIMENOrdering Facility: [facility] Address: [address] [place] [address] Performed By: #### 2 4323-8 ####[facility] LABCLIA [id number] [place] [address] AST [Catalytic activity/Vol] 11 U/L Low 13-35 [facility] Comment on above: Order Comment: Speci men Type: BLOOD SPECIMENOrdering Facility: [facility] Address: [address] [place] [address] Performed By: #### 2 4323-8 ####[facility] LABCLIA [id number] [place] [address] Bilirubin [Mass/Vol] 0.2 mg/dL Normal 0.2-1.3 [facility] Comment on above: Order Comment: Speci men Type: BLOOD SPECIMENOrdering Facility: [facility] Address: [address] [place] [address] Performed By: #### 2 4323-8 ####[facility] LABCLIA [id number] [place] [address] Calcium [Mass/Vol] 9.7 mg/dL Normal 8.5-10.2 [facility] Comment on above: Order Comment: Speci men Type: BLOOD SPECIMENOrdering Facility: [facility] Address: [address] [place] [address] Performed By: #### 2 4323-8 ####[facility] LABCLIA [id number] [place] [address] Chloride [Moles/Vol] 99 mmol/L Normal 98-107 [facility] Comment on above: Order Comment: Speci men Type: BLOOD SPECIMENOrdering Facility: [facility] Address: [address] [place] [address] Performed By: #### 2 4323-8 ####[facility] LABCLIA [id number] [place] [address] CO2 [Moles/Vol] 25 mmol/L Normal 22-30 [facility] Comment on above: Order Comment: Speci men Type: BLOOD SPECIMENOrdering Facility: [facility] Address: [address] [place] [address] Performed By: #### 2 4323-8 ####[facility] LABCLIA [id number] [place] [address] Creatinine [Mass/Vol] 0.71 mg/dL Normal 0.58-0.96 [facility] Comment on above: Order Comment: Speci men Type: BLOOD SPECIMENOrdering Facility: [facility] Address: [address] [place] [address] Performed By: #### 2 4323-8 ####[facility] LABCLIA [id number] [place] [address] Creatinine and Glomerular filtration rate.predicted panel (S/P/Bld) 112 mL/min/1.73m??? Normal >=60 [facility] Comment on above: Order Comment: Speci men Type: BLOOD SPECIMENOrdering Facility: [facility] Address: [address] [place] [address] Result Comment: Hawa mated Glomerular Filtration Rate [...] actual GFR. Performed By: #### 2 4323-8 ####[facility] LABCLIA [id number] [place] [address] Glucose [Mass/Vol] 79 mg/dL Normal 74-99 [facility] Comment on above: Order Comment: Cesar redd Type: BLOOD SPECIMENOrdering Facility: [facility] Address: [address] [place], [place] [address] Result Comment: The [place] Diabetes Association (ADA) provides guidance for cutoff [...] Standards of Medical Care in Diabetes 2016, [place] Diabetes Association. Diabetes Care. 2016.39(Suppl 1). Performed By: #### 2 4323-8 ####[facility] LABCLIA [id number] [place] [address] Potassium [Moles/Vol] 4.0 mmol/L Normal 3.7-5.1 [facility] Comment on above: Order Comment: Cesar redd Type: BLOOD SPECIMENOrdering Facility: [facility] Address: [address] [place] [address] Performed By: #### 2 4323-8 ####[facility] LABCLIA [id number] [place] [address] Protein [Mass/Vol] 7.1 g/dL Normal 6.3-8.0 [facility] Comment on above: Order Comment: Cesar redd Type: BLOOD SPECIMENOrdering Facility: [facility] Address: [address] [place], [place] [address] Performed By: #### 2 4323-8 ####[facility] LABCLIA [id number] [place] [address] Sodium [Moles/Vol] 134 mmol/L Low 136-144 [facility] Comment on above: Order Comment: Speci men Type: BLOOD SPECIMENOrdering Facility: [facility] Address: [address] [place] [address] Performed By: #### 2 4323-8 ####[facility] LABCLIA [id number] [place] [address] Urea nitrogen [Mass/Vol] 8 mg/dL Normal 7-21 [facility] Comment on above: Order Comment: Speci men Type: BLOOD SPECIMENOrdering Facility: [facility] Address: [address] [place] [address] Performed By: #### 2 4323-8 ####[facility] LABCLIA [id number] [place] [address] Ferritin SerPl-mCncon 2024 Ferritin [Mass/Vol] 73.8 ng/mL Normal 14.7-205.1 [facility] Comment on above: Order Comment: Speci men Type: BLOOD SPECIMENOrdering Facility: [facility] Address: [address] [place] [address] Performed By: #### 5 0190-8, 2276-4, 3016-3 ####[facility] LABCLIA [id number] [place] [address] [place] Folate SerPl-mCncon 05-28-19 25 Folate [Mass/Vol] ng/mL Normal >4.7 [facility] Comment on above: Order Comment: Speci men Type: BLOOD SPECIMENOrdering Facility: [facility] Address: [address] [place] [address] Result Comment: A re sult of > 20 ng/mL is not necessarily indicative of a pathologic or treatable condition: it reflects a limitation of the test methodology. Assay reference range: 4.8 to 24.2 ng/mL. Suitable for detection of folate deficiency. Reference: Folate III (Folate III) [package insert V 1.0 Fijian]. [facility], [place], [place]: February 2015. Performed By: #### 2 132-9, 2284-8 ####[facility] LABCLIA [id number] [place] [id number] [place] Iron and Iron binding capaci ty panelon 05-28-2024 Iron [Mass/Vol] 68 ug/dL Normal 41-186 [facility] Comment on above: Order Comment: Speci men Type: BLOOD SPECIMENOrdering Facility: [facility] Address: [address] [place] [address] Performed By: #### 5 0190-8, 2276-4, 3016-3 ####[facility] LABIA [id number] [place] [address] [place] Iron binding capacity [Mass/Vol] 367 ug/dL Normal 232-386 [facility] Comment on above: Order Comment: Speci men Type: BLOOD SPECIMENOrdering Facility: [facility] Address: [address] [place] [address] Performed By: #### 5 0190-8, 2276-4, 3016-3 ####[facility] [id number] [place] [address] [place] Iron/TIBC [Molar ratio] 18.5 % Normal 15.0-57.0 [facility] Comment on above: Order Comment: Speci men Type: BLOOD SPECIMENOrdering Facility: [facility] Address: [address] [place] [address] Performed By: #### 5 0190-8, 6-4, 3016-3 ####[facility] LABIA [id number] [place] [id number] [place] TSH SerPl-aCncon 05-28-2024 TSH Qn 2.940 m[IU]/L Normal 0.270-4.20 0 [facility] Comment on above: Order Comment: Specmoe redd Type: BLOOD SPECIMENOrdering Facility: [facility] Address: [address] [place] [address] Result Comment: If t he patient is , TSH reference range varies by gestational period: First Trimester (weeks 9-12): 0.180-2.990 mIU/L Second Trimester: 0.110-3.980 mIU/L Third Trimester: 0.480-4.710 mIU/L Danny Varela et al. A Practical Approach for the Verifications and Determination of Site- and Trimester-Specific Reference Intervals for Thyroid Function tests in . Thyroid, 2019:29:3:412-420. Saeed Pan, et al. 2017 Guidelines of the [place] Thyroid Association for the Diagnosis and Management of Thyroid Disease during and the . Thyroid, 2017:27:3:315-389. Performed By: #### 5 0190-8, 2276-4, 3016-3 ####[facility] LABCLIA [id number] [place] [address] [place] Vit B12 SerPl-mCncon 025 Cobalamin (Vitamin B12) [Mass/Vol] 487 pg/mL Normal 232-1245 [facility] Comment on above: Order Comment: Cesar redd Type: BLOOD SPECIMENOrdering Facility: [facility] Address: [address] [place] [address] Performed By: #### 2 132-9, 2284-8 ####[facility] LABIA [id number] [place] [id number] [place] BhCG Quanton 05-17-2024 HCG.beta subunit Qn 101 m[IU]/mL High 1-3 [facility] Comment on above: Result Comment: 'F N ON < 1 - 3' ' 0.2 - 1 WEEK = 5 TO 50' ' 1 - 2 WEEKS = 50 - 500' ' 2 - 3 WEEKS = 100 - 5000' ' 3 - 4 WEEKS = 500 - 89533' ' 4 - 5 WEEKS = 1000 - 31621' ' 5 - 6 WEEKS = 70294 - 146903' ' 6 - 8 WEEKS = 92286 - 412229' ' 8 - 12 WEEKS = 92300 - 746113' Performed By: #### 2 179351 #### [facility] [address] [place] [address] Sisi 05-14-2024 CNPN Telephone (HEMASA) SANNA RENDON ([id number]) 1985 F Date Time Provider Department 05/14/24 RACHAEL JOHNSON During your visit today, we recorded the following information about you: Rachael Johnson RN 05/14/2024 10:19 AM Signed Pt called to inform she had a miscarriage, Sunday (05/10/24) Asking if any additional blood work was needed from out standpoint. Pt aware we will be checking her CBC for any signs of anemia and her iron studies for deficiency. She is aware if her investigator welfare or PCP request any additional testing, we can certainly draw with her appt 05/21 (will just need to fax orders). She denies any further questions needs or concerns at this time. Rachael Johnson RN Feyl: FYI Allergies As of Date: 05/14/2024 Noted [...] and gassy Date Reviewed: 04/28/2024 Reviewed by: Katherine Negrete APRN.ATHLETIC COACH - Fully Assessed Reason for Visit: Patient [...] speech/language deficit [I69.328] 08/01/2022 Encounter Status:Closed by RACHAEL JOHNSON on 05/14/24 Normal [facility] ALL CBC WITH AUTO DIFFon BASOPHILS ABSOLUTE AUTO 0 [facility] Basophils/100 WBC (Bld) 0.2 % 0.2 - 2.0 % [facility] Eosinophils/100 WBC (Bld) 0.7 % Low 0.9 - 7.0 % [facility] Erythrocyte distribution width (RBC) [Ratio] 13 % 11.0 - 15.0 % [facility] Hematocrit (Bld) [Volume fraction] 35.6 % Low 36.0 - 48.0 % [facility] Hemoglobin (Bld) [Mass/Vol] 12.3 g/dL 12.0 - 16.0 g/dL [facility] IMMATURE GRANULOCYTES ABS AUTO 0.04 High [facility] Immature granulocytes/100 WBC (Bld) 0.4 % 0.0 - 0.5 % [facility] Interpretation and review of laboratory results Abnormal [facility] LYMPHOCYTES ABSOLUTE AUTO 2.5 [facility] Lymphocytes/100 WBC (Bld) 26.1 % 20.5 - 60.0 % [facility] MCH (RBC) [Entitic mass] 31 pg 26.7 - 34.0 pg [facility] MCHC (RBC) [Mass/Vol] 34.6 g/dL 29.9 - 35.2 g/dL [facility] MCV (RBC) [Entitic vol] 89.7 fL 81.0 - 99.0 fL [facility] MONOCYTES ABSOLUTE AUTO 0.6 [facility] Monocytes/100 WBC (Bld) 6 % 1.7 - 12.0 % [facility] NEUTROPHILS ABSOLUTE AUTO 6.3 [facility] Neutrophils/100 WBC (Bld) 66.6 % 43.0 - 75.0 % [facility] Platelet mean volume (Bld) [Entitic vol] 9.9 fL 9.5 - 13.5 fL [facility] TBH EO # 0.1 [facility] PLT 315 [facility] RBC 3.97 Low [facility] WBC 9.4 [facility] CLINISYNC [facility] Omar 05-10-2024 L ------- Specimen: [id number] Received: 05/12/24120 Status: BALDOMERO Andrade Num: [id number] Spec Type: Surgical Subm Dr: Wilton Herrmann Tissues: A Placenta - Other than 3rd Trimester (14 WK PLACENTA) Procedures: HE/3, Gross/Micro L4 Age/ Patient Sex Location Account Attending Physician Justice,Katie 38/F LABELL [id number] Wilton Herrmann SPEC NUM: [id number] RECD: 05/12/24-1209 STATUS: BALDOMERO ANDRADE NUM: [id number] AMARILYS: 05/10/24- SUBM DR: Wilton Herrmann ENTERED: 05/12/24-1215 [facility] DR: Piyush,Lab SPEC TYPE: Surgical DEPT: [facility] ENTERED BY: [id number] RECV BY: [id number] ORDERED: HE/3, Gross/Micro L4 ORDERED: HE/3, Gross/Micro [...] received Specimen: [id number] Received: 05/12/24 Status: BALDOMERO Noa Num: [id number] Spec Type: Surgical Subm Dr: Wilton Herrmann Tissues: A Placenta - Other than 3rd Trimester (14 WK PLACENTA) Procedures: /3, Gross/Micro L4 Patient: Sanna Rendon [id number] (Continued) Specimen: [id number] Received: 05/12/24 (Continued) Dann Description (Continued) Signed (signature on file) Vivi Hill MD 05/13/24 1605 Specimen: [id number] Received: 05/12/24 Status: BALDOMERO Andrade Num: [id number] Spec Type: Surgical Subm Dr: Wilton Herrmann Tissues: A Placenta - Other than 3rd Trimester (14 WK PLACENTA) Procedures: HE/3, Gross/Micro L4 Patient: Sanna Rendon [id number] (Continued) Specimen: [id number] Received: 05/12/24 (Continued) Gross Description (Continued) GENERAL: Trimmed Weight [...] and uniform. Cassettes: A1 Rolled membrane A2-A3 [employer] sections of placenta (3, ss, BS25-17 A) JosselynG . CPT Codes 11777 Specimen: [id number] Received: 05/12/24 Status: BALDOMERO Andrade Num: [id number] Spec Type: Surgical Subm Dr: Wilton Herrmann Tissues: A Placenta - Other than 3rd Trimester (14 WK PLACENTA) Procedures: DEION/Ramone, Dann/Rah L4 Patient: Sanna Rendon [id number] (Continued) Signed (signature on file) Vivi Hill MD 05/13/24 1605 Normal [facility] US OB TRANSVAGINALon 025 US [...] Negative Negative - 4(70) +++ mg/dL [facility] Blood, UA Negative Negative - 50 Max/mcL [facility] Clarity, UA Clear [facility] Color, UA Yellow [facility] Glucose, UA Negative Negative - 2000(110) ++++ mg/dL [facility] Interpretation and review of laboratory results Normal [facility] Ketones, UA Negative Negative - 160(16) ++++ mg/dL [facility] Leukocytes, UA Negative Negative - 500+++ John/mcL [facility] Nitrite, UA Negative Negative - Positive [facility] pH, UA 6 5 - 9 [facility] Protein, UA Negative Negative - 2000(20) ++++ mg/dL [facility] Spec Grav, UA 1.01 1 - 1.03 [facility] Urobilinogen, UA 0.2 0.2 - 12 mg/dL [facility] BOX TESTon 04-12-2024 BOX TEST SENT OUT Y [facility] BOX1 [place] [facility] BOX2 04/12/24 [facility] BOX [facility] DRUG SCREEN RAPID (URINE )on 04-12-2024 AMPHETAMINE SCREEN URINE Negative NEGATIVE [facility] BARBITURATES SCREEN URINE Negative NEGATIVE [facility] BENZODIAZEPINES SCREEN URINE Negative NEGATIVE [facility] BUPRENORPHINE SCREEN URINE Negative NEGATIVE [facility] Comment on above: [...] ng/mL CANNABINOID SCREEN URINE Negative NEGATIVE [facility] COCAINE SCREEN URINE Negative NEGATIVE [facility] METHADONE SCREEN URINE Negative NEGATIVE [facility] METHAMPHETAMINES SCREEN URINE Negative NEGATIVE [facility] OPIATE SCREEN URINE Negative NEGATIVE [facility] OXYCODONE SCREEN URINE Negative NEGATIVE [facility] PHENCYCLIDINE SCREEN URINE Negative NEGATIVE [facility] TRICYCLIC ANTIDEPRESSANT URINE Negative NEGATIVE [facility] HCG ( test) Ql (U)o n 04-04-2024 Interpretation and review of laboratory results Abnormal [facility] Preg Test, Ur Positive Negative [facility] Urinalysis macro (dipstick) panel (U)on 04-04-2024 Bilirubin, UA Negative Negative - 4(70) +++ mg/dL [facility] Blood, UA Negative Negative - 50 Max/mcL [facility] Clarity, UA Clear [facility] Color, UA Yellow [facility] Glucose, UA Negative Negative - 1999(110) ++++ mg/dL [facility] Interpretation and review of laboratory results Normal [facility] Ketones, UA Negative Negative - 160(16) ++++ mg/dL [facility] Leukocytes, UA Negative Negative - 500+++ John/mcL [facility] Nitrite, UA Negative Negative - Positive [facility] pH, UA 5.5 5 - 9 [facility] Protein, UA Negative Negative - 1999(20) ++++ mg/dL [facility] Spec Grav, UA 1.02 1 - 1.03 [facility] Urobilinogen, UA 1.0 0.2 - 12 mg/dL [facility] C Urineon 03-03-2024 Bacteria identified Cx [...] Locations R1: This test was performed at: [facility], [address] [place] [address], [address]- , , [facility] Comment on above: Performed By: #### 2 [id number] #### [facility] [address] [place] [address] BhCG Quanton 03-01-2024 HCG.beta subunit Qn 747 m[IU]/mL High 1-3 [facility] Comment on above: Result Comment: 'F N ON < 1 - 3' ' 0.2 - 1 WEEK = 5 TO 50' ' 1 - 2 WEEKS = 50 - 500' ' 2 - 3 WEEKS = 100 - 5000' ' 3 - 4 WEEKS = 500 - 95636' ' 4 - 5 WEEKS = 1000 - 44798' ' 5 - 6 WEEKS = 15850 - 433701' ' 6 - 8 WEEKS = 84914 - 851153' ' 8 - 12 WEEKS = 00864 - 016859' Performed By: #### 2 [id number] #### [facility] [address] [place] [address] CHEMISTRYOrdered By: SYSTEM SYSTEM on 03-01-2024 HCG.beta [...] 3 - 4 WEEKS = 500 - 89654' ' 4 - 5 WEEKS = 1000 - 94230' ' 5 - 6 WEEKS = 75681 - 825677' ' 6 - 8 WEEKS = 32004 - 872608' ' 8 - 12 WEEKS = 08756 - 547777' [facility] Quanton 02-27-2024 HCG.beta subunit Qn 268 m[IU]/mL High 1-3 [facility] Comment on above: Result Comment: 'F N ON < 1 - 3' ' 0.2 - 1 WEEK = 5 TO 50' ' 1 - 2 WEEKS = 50 - 500' ' 2 - 3 WEEKS = 100 - 5000' ' 3 - 4 WEEKS = 500 - 72068' ' 4 - 5 WEEKS = 1000 - 83599' ' 5 - 6 WEEKS = 79143 - 300278' ' 6 - 8 WEEKS = 29911 - 658163' ' 8 - 12 WEEKS = 79291 - 101320' Performed By: #### 2 740424 #### [facility] [address] [place] [address] [facility] 02-27-2024 [facility] SANNA RENDON ([id number]) 1985 F Date Time Provider Department 02/27/24 RACHAEL JOHNSON During your visit today, we recorded the following information about you: Rachael Johnson RN 02/27/2024 9:45 AM Signed Pt 4 weeks and inquiring if she should have lab work completed now or wait until scheduled appt. Pt last labs completed 01/02/24. Pt also would like to know if it is okay to take with iron? Fely: Please advise MARSHA Rush Vivek MD 02/27/2024 4:39 PM Signed She can take the iron with prenatals. We should Johnathon labs as scheduled. Rachael Johnson RN 02/28/2024 8:21 AM Signed Pt aware and agreeable to plan of care. Pt denies any further questions, needs or concerns at this time. Appt verified for lab/follow up Rachael Johnson RN Allergies As of Date: 02/27/2024 [...] gassy Date Reviewed: 01/02/2024 Reviewed by: Serina aDwson MA - Fully Assessed Reason for Visit: Patient Question [8630] Prescriptions as of 02/28/2024 - enoxaparin (LOVENOX) [...] speech/language deficit [I69.328] 08/01/2022 Encounter Status:Closed by RACHAEL JOHNSON on 02/28/24 [facility] HCG.beta subunit Qn 123 m[IU]/mL High 1-3 [facility] Comment on above: Result Comment: 'F N ON < 1 - 3' ' 0.2 - 1 WEEK = 5 TO 50' ' 1 - 2 WEEKS = 50 - 500' ' 2 - 3 WEEKS = 100 - 5000' ' 3 - 4 WEEKS = 500 - 05050' ' 4 - 5 WEEKS = 1000 - 91694' ' 5 - 6 WEEKS = 29052 - 957912' ' 6 - 8 WEEKS = 63696 - 132185' ' 8 - 12 WEEKS = 39631 - 727285' Performed By: #### 2 [id number] #### [facility] [address] [place] [address] CHEMISTRYOrdered By: SYSTEM SYSTEM on 02-25-2024 HCG.beta [...] 3 - 4 WEEKS = 500 - 68588' ' 4 - 5 WEEKS = 1000 - 32194' ' 5 - 6 WEEKS = 42899 - 669440' ' 6 - 8 WEEKS = 96978 - 927875' ' 8 - 12 WEEKS = 88953 - 348966' [id number] 02-25-2024 HbA1c (Bld) [Mass fraction] 6.0 % High <=5.9 [facility] Comment on above: Performed By: #### 7 [id number] #### [facility] [address] [place] [address] HIV Screen 4th Generation wR fxon 02-24-2024 HIV 1+2 Ab+HIV1 p24 Ag IA Ql Non-Reactive Invalid Interpretation Code Non Reactive [facility] Comment on above: Result Comment: HIV- 1/HIV-2 antibodies and HIV-1 p24 antigen were NOT detected. There is no laboratory evidence of HIV infection. HIV Negative Performed at: [facility] [id number] PhD Jd Montano Performed By: #### 9 [id number] #### [facility] [address] [place] [address] BhCG Quanton 02-23-2024 HCG.beta subunit Qn 52 m[IU]/mL High 1-3 [facility] Comment on above: Result Comment: 'F N ON < 1 - 3' ' 0.2 - 1 WEEK = 5 TO 50' ' 1 - 2 WEEKS = 50 - 500' ' 2 - 3 WEEKS = 100 - 5000' ' 3 - 4 WEEKS = 500 - 91127' ' 4 - 5 WEEKS = 1000 - 74908' ' 5 - 6 WEEKS = 47222 - 825928' ' 6 - 8 WEEKS = 29778 - 098435' ' 8 - 12 WEEKS = 14629 - 155212' Performed By: #### 2 [id number] #### [facility] [address] [place] [address] CHEMISTRYOrdered By: SYSTEM SYSTEM on 02-23-2024 Cholesterol [...] 3 - 4 WEEKS = 500 - 27689' ' 4 - 5 WEEKS = 1000 - 26572' ' 5 - 6 WEEKS = 75898 - 234418' ' 6 - 8 WEEKS = 26978 - 633478' ' 8 - 12 WEEKS = 05109 - 859783' Triglyceride [Mass/Vol] 212 mg/dL High <=149mg/dL Rem[facility] TSH Qn 5.68 m[IU]/L High 0.34 - 5.60 mcIU/mL [facility] CHEMISTRYOrdered By: Chelsey Price on 02-23-2024 HbA1c (Bld) [Mass fraction] 5.9 % Normal <=5.9% [facility] ChemAutoSS [id number] 02-23-2024 HbA1c (Bld) [Mass fraction] 5.9 % Normal <=5.9 [facility] Comment on above: Performed By: #### 7 [id number] #### [facility] [address] [place] [address] Lipid Panelon 02-23-2024 Cholesterol [Mass/Vol] 225 mg/dL High 120-200 [facility] Comment on above: Performed By: #### 2 [id number] #### [facility] [address] [place] [address] Cholesterol in HDL [Mass/Vol] 40 mg/dL Invalid Interpretation Code [facility] Comment on above: Result Comment: '>= 60 LOW RISK' '<= 40 HIGH RISK' Performed By: #### 2 164668 #### [facility] [address] [place] [address] Cholesterol in LDL [Mass/Vol] 171 mg/dL High <=129 [facility] Comment on above: Performed By: #### 2 [id number] #### [facility] [address] [place] [address] Cholesterol in VLDL [Mass/Vol] 42 mg/dL High 7-40 [facility] Comment on above: Performed By: #### 2 519143 #### [facility] [address] [place] [address] Triglyceride [Mass/Vol] 212 mg/dL High <=149 [facility] Comment on above: Performed By: #### 2 133129 #### [facility] [address] [place] [address] TSHon 02-23-2024 TSH Qn 5.68 m[IU]/L High 0.34-5.60 [facility] Comment on above: Performed By: #### 2 302459 #### [facility] [address] [place] [address] Ambulatory Visit Summaryon 1 Ambulatory Visit Summary Ambulatory Visit Summary SANNA RENDON :1985 Visit Date:02/05/2024 Ambulatory Visit Instructions Your Diagnosis Acute bronchitis due to other specified organisms BMI 35.0-35.9,adult Obesity Antiphospholipid syndrome Gestational diabetes Well adult exam Your Care Team Attending Physician - Penelope CASAS DO, FAAFP Primary Care Physician - Penelope CASAS DO, FAAFP This Is Your Medications [...] Follow-Up Appointments Sunday 11:40 AM EST With: Penelope CASAS DO, FAAFP Where: [facility] [address] [place] [address]- You Need to Schedule the Following Appointments Follow Up with Penelope CASAS DO, FAAFP, FAM, PED When: In 3 months Where: [address] [place] [address]- You Need to Complete the [...] Vaginal marlee (more content not included)... Normal [facility] Office/Clini c Noteon [...] 40 mg subcu, continue to follow-up with group work program aide 5. 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 Well [...] 30 minutes. Follow-up With When Contact Information Penelope CASAS DO, FAAFP, CHRIS, PED In 3 months [address], [place] [address]- Additional Instructions: Patient Education Acute Bronchitis, Adult Problem List/Past Medical History Ongoing Acute (more content not included)... Normal [facility] Comment on above: Result Comment: Elec tronically Signed By: Penelope CASAS DO, FAAFP\.br\Date and Time Signed: 02/05/24 14:44 EDT Ambulatory Visit Summaryon 1 Ambulatory Visit Summary Ambulatory Visit Summary SANNA RENDON :1985 Visit Date:02/02/2024 Ambulatory Visit Instructions Your Diagnosis Community acquired pneumonia Your Care Team Attending Physician - Anni Bernstein MD Primary Care Physician - Penelope CASAS DO, FAAFP This Is Your Medications [...] Community acquired pneumonia Refills: 5 Pickup at [facility] 1985 New azithromycin (azithromycin 250 mg Tab 5-day Dose Pack (Z-Jonny)) 1 Packets By Mouth As Directed Community acquired pneumonia Duration: 5 Days as directed on package labeling Pickup at [facility] 1985 Unchanged enoxaparin (Lovenox 40 mg/ 0.4 [...] physician if questions or concerns Pharmacy Information [facility]: [address] [place], [place] [id number] [phone] Allergies Milk Products (Illness) ciprofloxacin (Numbness and [...] choosing us for your care. Normal [facility] Family Medicine Office/Clini c Noteon 02-02-2024 [...] COVID exposure- no History of Present Illness SANNA RENDON is a 38 Years White Female [...] puff(s), Inhalation, q6hr, 1 EA, Refill(s) 5, [facility] 1985, 168, cm, 02/02/24 14:43:00 EDT, Height/Length Dosing, 101.1, kg, 02/02/24 14:43:00 EDT, Weight Dosing azithromycin, = 1 packet(s), Oral, As Directed, as directed on package labeling, X 5 day(s), # 6 tab(s), Refills(s) 0, Pharmacy: [facility] 1985, 168, cm, 02/02/24 14:43:00 [...] Bernstein MD, FAM, MED Only if needed [address] [place] [phone] Additional Instructions: Problem List/Past Medical History Ongoing [...] 2000 International_Unit (more content not included)... Normal [facility] Comment on above: Result Comment: Elec tronically Signed By: Anni Bernstein MD\.br\Date and Time Signed: 02/02/24 15:03 EDT CBC W Auto Differential pane l (Bld)on 01-02-2024 Basophils (Bld) [#/Vol] 10*3/uL Normal <0.11 [facility] Comment on above: Order Comment: Speci men Type: BLOOD SPECIMENOrdering Facility: [facility] Address: [address] [place] [address] Performed By: #### 5 7021-8 ####[facility] LABCLIA [id number] [place] [address] Basophils/100 WBC (Bld) 0.3 % Normal [facility] Comment on above: Order Comment: Speci men Type: BLOOD SPECIMENOrdering Facility: [facility] Address: [address] [place] [address] Performed By: #### 5 7021-8 ####[facility] LABCLIA [id number] [place] [address] Differential cell count method Nom (Bld) Auto Normal [facility] Comment on above: Order Comment: Speci men Type: BLOOD SPECIMENOrdering Facility: [facility] Address: [address] [place] [address] Performed By: #### 5 7021-8 ####[facility] LABCLIA [id number] [place] [address] Eosinophils (Bld) [#/Vol] 0.07 10*3/uL Normal <0.46 [facility] Comment on above: Order Comment: Speci men Type: BLOOD SPECIMENOrdering Facility: [facility] Address: [address] [place] [address] Performed By: #### 5 7021-8 ####[facility] LABCLIA [id number] [place] [address] Eosinophils/100 WBC (Bld) 0.9 % Normal [facility] Comment on above: Order Comment: Speci men Type: BLOOD SPECIMENOrdering Facility: [facility] Address: [address] [place] [address] Performed By: #### 5 7021-8 ####[facility] LABCLIA [id number] [place] [address] Erythrocyte distribution width (RBC) [Ratio] 13.3 % Normal 11.5-15.0 [facility] Comment on above: Order Comment: Speci men Type: BLOOD SPECIMENOrdering Facility: [facility] Address: [address] [place] [address] Performed By: #### 5 7021-8 ####[facility] LABCLIA [id number] [place] [address] Hematocrit (Bld) [Volume fraction] 38.5 % Normal 36.0-46.0 [facility] Comment on above: Order Comment: Speci men Type: BLOOD SPECIMENOrdering Facility: [facility] Address: [address] [place] [address] Performed By: #### 5 7021-8 ####[facility] LABCLIA [id number] [place] [address] Hemoglobin (Bld) [Mass/Vol] 13.6 g/dL Normal 11.5-15.5 [facility] Comment on above: Order Comment: Speci men Type: BLOOD SPECIMENOrdering Facility: [facility] Address: [address] [place] [address] Performed By: #### 5 7021-8 ####[facility] LABCLIA [id number] [place] [address] Immature granulocytes (Bld) [#/Vol] 0.03 10*3/uL Normal <0.10 [facility] Comment on above: Order Comment: Speci men Type: BLOOD SPECIMENOrdering Facility: [facility] Address: [address] [place] [address] Performed By: #### 5 7021-8 ####[facility] LABCLIA [id number] [place] [address] Immature granulocytes/100 WBC (Bld) 0.4 % Normal [facility] Comment on above: Order Comment: Speci men Type: BLOOD SPECIMENOrdering Facility: [facility] Address: [address] [place] [address] Performed By: #### 5 7021-8 ####[facility] LABCLIA [id number] [place] [address] Lymphocytes (Bld) [#/Vol] 3.06 10*3/uL Normal 1.00-4.00 [facility] Comment on above: Order Comment: Speci men Type: BLOOD SPECIMENOrdering Facility: [facility] Address: [address] [place] [address] Performed By: #### 5 7021-8 ####[facility] LABCLIA [id number] [place] [address] Lymphocytes/100 WBC (Bld) 39.0 % Normal [facility] Comment on above: Order Comment: Speci men Type: BLOOD SPECIMENOrdering Facility: [facility] Address: [address] [place] [address] Performed By: #### 5 7021-8 ####[facility] LABCLIA [id number] [place] [address] MCH (RBC) [Entitic mass] 30.8 pg Normal 26.0-34.0 [facility] Comment on above: Order Comment: Speci men Type: BLOOD SPECIMENOrdering Facility: [facility] Address: [address] [place] [address] Performed By: #### 5 7021-8 ####[facility] LABCLIA [id number] [place] [address] MCHC (RBC) [Mass/Vol] 35.3 g/dL Normal 30.5-36.0 [facility] Comment on above: Order Comment: Speci men Type: BLOOD SPECIMENOrdering Facility: [facility] Address: [address] [place] [address] Performed By: #### 5 7021-8 ####[facility] LABCLIA [id number] [place] [address] MCV (RBC) [Entitic vol] 87.3 fL Normal 80.0-100.0 [facility] Comment on above: Order Comment: Speci men Type: BLOOD SPECIMENOrdering Facility: [facility] Address: [address] [place] [address] Performed By: #### 5 7021-8 ####[facility] LABCLIA [id number] [place] [address] Monocytes (Bld) [#/Vol] 0.50 10*3/uL Normal <0.87 [facility] Comment on above: Order Comment: Speci men Type: BLOOD SPECIMENOrdering Facility: [facility] Address: [address] [place] [address] Performed By: #### 5 7021-8 ####[facility] LABCLIA [id number] [place] [address] Monocytes/100 WBC (Bld) 6.4 % Normal [facility] Comment on above: Order Comment: Speci men Type: BLOOD SPECIMENOrdering Facility: [facility] Address: [address] [place] [address] Performed By: #### 5 7021-8 ####[facility] LABCLIA [id number] [place] [address] Neutrophils (Bld) [#/Vol] 4.17 10*3/uL Normal 1.45-7.50 [facility] Comment on above: Order Comment: Speci men Type: BLOOD SPECIMENOrdering Facility: [facility] Address: [address] [place] [address] Performed By: #### 5 7021-8 ####[facility] LABCLIA [id number] [place] [address] Neutrophils/100 WBC (Bld) 53.0 % Normal [facility] Comment on above: Order Comment: Speci men Type: BLOOD SPECIMENOrdering Facility: [facility] Address: [address] [place] [address] Performed By: #### 5 7021-8 ####[facility] LABCLIA [id number] [place] [address] Nucleated RBC (Bld) [#/Vol] 10*3/uL Normal <0.01 [facility] Comment on above: Order Comment: Speci men Type: BLOOD SPECIMENOrdering Facility: [facility] Address: [address] [place] [address] Performed By: #### 5 7021-8 ####[facility] LABCLIA [id number] [place] [address] Nucleated RBC/100 WBC (Bld) [Ratio] 0.0 /100 WBC Normal [facility] Comment on above: Order Comment: Speci men Type: BLOOD SPECIMENOrdering Facility: [facility] Address: [address] [place] [address] Performed By: #### 5 7021-8 ####[facility] LABIA [id number] [place] [address] Platelet mean volume (Bld) [Entitic vol] 9.8 fL Normal 9.0-12.7 [facility] Comment on above: Order Comment: Speci men Type: BLOOD SPECIMENOrdering Facility: [facility] Address: [address] [place] [address] Performed By: #### 5 7021-8 ####[facility] LABCLIA [id number] [place] [address] Platelets (Bld) [#/Vol] 330 10*3/uL Normal 150-400 [facility] Comment on above: Order Comment: Speci men Type: BLOOD SPECIMENOrdering Facility: [facility] Address: [address] [place] [address] Performed By: #### 5 7021-8 ####[facility] LABIA [id number] [place] [address] RBC (Bld) [#/Vol] 4.41 10*6/uL Normal 3.90-5.20 [facility] Comment on above: Order Comment: Speci men Type: BLOOD SPECIMENOrdering Facility: [facility] Address: [address] [place] [address] Performed By: #### 5 7021-8 ####[facility] HOSPITALIA [id number] [place] [address] WBC (Bld) [#/Vol] 7.85 10*3/uL Normal 3.70-11.00 [facility] Comment on above: Order Comment: Speci men Type: BLOOD SPECIMENOrdering Facility: [facility] Address: [address] [place] [address] Performed By: #### 5 7021-8 ####[facility] LABIA [id number] [place] [address] CNOVSPon 01-02-2024 CNOVSP Visit (SP) Office ( EMASA) SANNA RENDON ([id number]) 1985 F Date Time Provider Department 01/02/24 1:45 PM KRISTOFER CALIX During your visit today, we recorded the following information about you: Temperature Pulse Respiration Blood pressure 97.1 degrees 91/minute 16/minute 128/81 Weight Height Last Period 102.7 kg 1.677 m 12/22/23 Kristofer Calix MD 01/04/2024 12:54 PM Signed NAME: Sanna Rendon CLINIC NO.: [id number] DATE OF SERVICE: January 02, 2024 (Levon) Some elements in this clinic note that are critical to medical decision making have been carefully reviewed and included from a prior clinic note dated: June 15, 2023 (Levon) Additional Clinicians involved in Sanna Rendon's care: Jorge Mcwilliams, Humaira Gaivria, Dr. Boothe CC: hypercoag state. ASSESSMENT: 38 year old woman presents with a prior history of CVA in 2016 and an antiphospholipid antibody that was identified much later in 2018. These were found in [place], [place]. I don't have access to these [...] a target-like rash shortly before presenting to [facility] in 2016 with headaches and was [...] ____ HPI: Updated Visit, January 02, 2024: Sanna returns today for a follow up. She [...] if indicated. Updated Visit, June 15, 2023: Sanna returns today with her youngest two children. She is still breast feeding. Numbness and vision changes both have subsided, she still plans to see Dr. Monge soon. When she had a stroke in [place], she had symptoms up to a month [...] weak, uri (more content not included)... Normal [facility] Sisi 01-02-2024 [facility] Telephone (NCCAP) SANNA RENDON ([id number]) 1985 F Date Time Provider Department 01/02/24 KRISTOFER CALIX During your visit today, we recorded the following information about you: Marleen Mcdonald Tai 01/02/2024 2:[address] Luna is requesting Triage to call Sanna with her FE results. Thank you Valeri Yan RN 01/07/2024 8:30 AM Signed No need for IV iron per CC'd chart from Dr. Calix. Attempt to call pt to notify. Left detailed message on, along with call back number on [employer]. Valeri Yan RN Allergies As of Date: [...] Status:Closed by VALERI YAN on 01/07/24 Normal [facility] Comprehensive metabolic 2000 panelon 01-02-2024 Albumin [Mass/Vol] 4.9 g/dL Normal 3.9-4.9 [facility] Comment on above: Order Comment: Speci men Type: BLOOD SPECIMENOrdering Facility: [facility] Address: [address] [place] [address] Performed By: #### 2 4323-8 ####[facility] LABCLIA [id number] [place] [address] ALP [Catalytic activity/Vol] 71 U/L Normal 34-123 [facility] Comment on above: Order Comment: Speci men Type: BLOOD SPECIMENOrdering Facility: [facility] Address: [address] [place] [address] Performed By: #### 2 4323-8 ####[facility] LABCLIA [id number] [place] [address] ALT [Catalytic activity/Vol] 22 U/L Normal 7-38 [facility] Comment on above: Order Comment: Speci men Type: BLOOD SPECIMENOrdering Facility: [facility] Address: [address] [place] [address] Performed By: #### 2 4323-8 ####[facility] LABCLIA [id number] [place] [address] Anion gap [Moles/Vol] 12 mmol/L Normal 8-15 [facility] Comment on above: Order Comment: Speci men Type: BLOOD SPECIMENOrdering Facility: [facility] Address: [address] [place] [address] Performed By: #### 2 4323-8 ####[facility] LABCLIA [id number] [place] [address] AST [Catalytic activity/Vol] 18 U/L Normal 13-35 [facility] Comment on above: Order Comment: Speci men Type: BLOOD SPECIMENOrdering Facility: [facility] Address: [address] [place] [address] Performed By: #### 2 4323-8 ####[facility] LABCLIA [id number] [place] [address] Bilirubin [Mass/Vol] 0.3 mg/dL Normal 0.2-1.3 [facility] Comment on above: Order Comment: Speci men Type: BLOOD SPECIMENOrdering Facility: [facility] Address: [address] [place] [address] Performed By: #### 2 4323-8 ####[facility] LABCLIA [id number] [place] [address] Calcium [Mass/Vol] 9.9 mg/dL Normal 8.5-10.2 [facility] Comment on above: Order Comment: Speci men Type: BLOOD SPECIMENOrdering Facility: [facility] Address: [address] [place] [address] Performed By: #### 2 4323-8 ####[facility] LABCLIA [id number] [place] [address] Chloride [Moles/Vol] 100 mmol/L Normal 98-107 [facility] Comment on above: Order Comment: Speci men Type: BLOOD SPECIMENOrdering Facility: [facility] Address: [address] [place] [address] [place] [address] Performed By: #### 2 4323-8 ####[facility] LABCLIA [id number] [place] [address] CO2 [Moles/Vol] 24 mmol/L Normal 22-30 [facility] Comment on above: Order Comment: Speci men Type: BLOOD SPECIMENOrdering Facility: [facility] Address: [address] [place] [address] Performed By: #### 2 4323-8 ####[facility] LABCLIA [id number] [place] [address] Creatinine [Mass/Vol] 0.84 mg/dL Normal 0.58-0.96 [facility] Comment on above: Order Comment: Speci men Type: BLOOD SPECIMENOrdering Facility: [facility] Address: [address] [place] [address] Performed By: #### 2 4323-8 ####[facility] LABCLIA [id number] [place] [address] Creatinine and Glomerular filtration rate.predicted panel (S/P/Bld) 91 mL/min/1.73m??? Normal >=60 [facility] Comment on above: Order Comment: Speci men Type: BLOOD SPECIMENOrdering Facility: [facility] Address: [address] [place] [address] Result Comment: Hawa mated Glomerular Filtration Rate [...] actual GFR. Performed By: #### 2 4323-8 ####[facility] LABCLIA [id number] [place] [address] Glucose [Mass/Vol] 84 mg/dL Normal 74-99 [facility] Comment on above: Order Comment: Speci men Type: BLOOD SPECIMENOrdering Facility: [facility] Address: [address] [place] [address] Result Comment: The [place] Diabetes Association (ADA) provides guidance for cutoff [...] Standards of Medical Care in Diabetes 2016, [place] Diabetes Association. Diabetes Care. 2016.39(Suppl 1). Performed By: #### 2 4323-8 ####[facility] LABCLIA [id number] [place] [address] Potassium [Moles/Vol] 3.5 mmol/L Low 3.7-5.1 [facility] Comment on above: Order Comment: Speci men Type: BLOOD SPECIMENOrdering Facility: [facility] Address: [address] [place] [address] Performed By: #### 2 4323-8 ####[facility] LABCLIA [id number] [place] [address] Protein [Mass/Vol] 7.3 g/dL Normal 6.3-8.0 [facility] Comment on above: Order Comment: Speci men Type: BLOOD SPECIMENOrdering Facility: [facility] Address: [address] [place] [address] Performed By: #### 2 4323-8 ####[facility] LABCLIA [id number] [place] [address] Sodium [Moles/Vol] 136 mmol/L Normal 136-144 [facility] Comment on above: Order Comment: Speci men Type: BLOOD SPECIMENOrdering Facility: [facility] Address: [address] [place] [address] Performed By: #### 2 4323-8 ####[facility] LABCLIA [id number] [place] [address] Urea nitrogen [Mass/Vol] 8 mg/dL Normal 7-21 [facility] Comment on above: Order Comment: Speci men Type: BLOOD SPECIMENOrdering Facility: [facility] Address: [address] [place] [address] Performed By: #### 2 4323-8 ####[facility] LABCLIA [id number] [place] [address] Ferritin SerPl-mCncon 2023 Ferritin [Mass/Vol] 261.0 ng/mL High 14.7-205.1 [facility] Comment on above: Order Comment: Speci men Type: BLOOD SPECIMENOrdering Facility: [facility] Address: [address] [place] [address] Performed By: #### 2 132-9, 2284-8, 2276-4, 44742-7 ####[facility] LABIA [id number] [place] [address] [place] Folate SerPl-mCncon 01-02-20 Folate [Mass/Vol] 17.2 ng/mL Normal >4.7 [facility] Comment on above: Order Comment: Speci men Type: BLOOD SPECIMENOrdering Facility: [facility] Address: [address] [place] [address] Performed By: #### 2 132-9, 2284-8, 2276-4, 23417-1 ####[facility] LABIA [id number] [place] [id number] [place] Iron and Iron binding capaci ty panelon 01-02-2024 Iron [Mass/Vol] 66 ug/dL Normal 41-186 [facility] Comment on above: Order Comment: Speci men Type: BLOOD SPECIMENOrdering Facility: [facility] Address: [address] [place] [address] Performed By: #### 2 132-9, 2284-8, 2276-4, 12383-3 ####[facility] LABIA [id number] [place] [id number] [place] Iron binding capacity [Mass/Vol] 354 ug/dL Normal 232-386 [facility] Comment on above: Order Comment: Speci men Type: BLOOD SPECIMENOrdering Facility: [facility] Address: [address] [place] [address] Performed By: #### 2 132-9, 2284-8, 2276-4, 18392-8 ####[facility] [id number] [place] [address] [place] Iron/TIBC [Molar ratio] 18.6 % Normal 15.0-57.0 [facility] Comment on above: Order Comment: Speci men Type: BLOOD SPECIMENOrdering Facility: [facility] Address: [address] [place] [address] Performed By: #### 2 132-9, 2284-8, 2276-4, 66444-1 ####[facility] [id number] [place] [address] [place] Vit B12 SerPl-ncon 01-01- 024 Cobalamin (Vitamin B12) [Mass/Vol] 460 pg/mL Normal 232-1245 [facility] Comment on above: Order Comment: Speci men Type: BLOOD SPECIMENOrdering Facility: [facility] Address: [address] [place] [address] Performed By: #### 2 132-9, 2284-8, 2276-4, 33205-5 ####[facility] [id number] [place] [id number] [place] Sisi 12-17-2023 [facility] Telephone (HEMASA) SANNA RENDON ([id number]) 1985 F Date Time Provider Department 12/17/23 RACHAEL JOHNSON During your visit today, we recorded the following information about you: Rachael Johnson, MARSHA 12/17/2023 11:39 AM Signed Pt reports onset [...] possible delayed reaction to IV Iron 11/29/23? Kristofer Calix MD 12/17/2023 12:53 PM Signed No - sounds like she has some infectious process going on - would rec PCP. Rachael Johnson, MARSHA 12/17/2023 12:57 PM Signed Pt updated and will follow up with PCP. Denies further questions, needs or concerns at this time for our provider. Rachael Johnson RN Allergies As of Date: 12/17/2023 [...] speech/language deficit [I69.328] 08/01/2022 Encounter Status:Closed by RACHAEL JOHNSON on 12/17/23 Normal [facility] MRI Brain w/o Contraston MRI Brain [...] MD Transcribed by: LINDY Technologist: ALEXSANDRA Normal [facility] Cortisolon 12-08-2023 Cortisol [Mass/Vol] 12.5 microgram/dL Invalid Interpretation Code 6.2-19.4 [facility] Comment on above: Result Comment: Plea se Note: The reference interval and flagging for this test is for an AM collection. If this is a PM collection please use: Cortisol PM: 2.3-11.9 Performed at: [facility] [id number] PhD Jd Montano Performed By: #### 2 820858 #### [facility] [address] [place] [address] T3 Freeon 12-08-2023 Free T3 [Mass/Vol] 2.5 pg/mL Invalid Interpretation Code 2.0-4.4 [facility] Comment on above: Result Comment: Perf ormed at: [facility] [id number] PhD Jd Montano Performed By: #### 2 026959 #### [facility] [address] [place] [address] Amylaseon 12-06-2023 Amylase [Catalytic activity/Vol] 38 U/L Normal 25-157 [facility] Comment on above: Performed By: #### 2 184613 #### [facility] [address] [place] [address] CHEMISTRYOrdered By: SYSTEM SYSTEM on 12-06-2023 Amylase [...] 12-06-2023 CRP [Mass/Vol] 0.2 mg/dL Normal <=1.9 [facility] Comment on above: Performed By: #### 2 177389 #### [facility] [address] [place] [address] Free T4on 12-06-2023 Free T4 [Mass/Vol] 0.58 ng/dL Normal 0.58-1.64 [facility] Comment on above: Performed By: #### 2 227230 #### [facility] [address] [place] [address] HEMATOLOGYOrdered By: Isha Zheng on 12-06-2023 ESR (Bld) [Velocity] 18 mm/h Normal 0 - 34 mm/hr [facility] HemeAutoSS Sed Rate Automatedon 024 ESR (Bld) [Velocity] 18 mm/h Normal 0-34 [facility] Comment on above: Performed By: #### 1 [id number] #### [facility] [address] [place] [address] TSHon 12-06-2023 TSH Qn 4.97 m[IU]/L Normal 0.34-5.60 [facility] Comment on above: Performed By: #### 2 901690 #### [facility] [address] [place] [address] Vit B12on 12-06-2023 Cobalamin (Vitamin B12) [Mass/Vol] 328 pg/mL Normal 50-1500 [facility] Comment on above: Performed By: #### 2 855946 #### [facility] [address] [place] [address] CNPNon 11-15-2023 CNPN Telephone (HEMTSA) SANNA RENDON ([id number]) 1985 F Date Time Provider Department 11/15/23 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 ALSO PALPITATIONS- Holter ECHO 2018- increasing , lightheadedness and many other c/o [...] Iron deficiency) Mild, as reported by her group work program aide, labs from 2022 appear normal 6. Pre-diabetes (R73.03: Prediabetes) Last A1c Continue metformin Nutrition: - Maintain optimal weight - Calorie restriction - Plant-based diet; high polyunsatur (more content not included)... Normal [facility] Comment on above: Result Comment: Elec tronically Signed By: Monica Keyes\.cedrick\Date and Time Signed: 11/09/23 15:56 EDT Physician Referralon 024 Physician Referral [id number] Normal [facility] Ambulatory Visit Summaryon 0 10-23-2023 Ambulatory Visit Summary JUSTICESANNA :1985 Visit Date:10/23/2023 Ambulatory Visit Instructions Your Diagnosis Dysfunction of right eustachian tube Nasal polyps Deviated septum BMI 37.0-37.9, adult Obesity Your Care Team Attending Physician - Shirlene YEBOAH, Lourdes Baltazar Primary Care Physician - Penelope CASAS DO, FAAFP This Is Your Medications List ciprofloxacin-dexamethasone otic (Ciprodex 0.3%-0.1% Susp-Otic) enoxaparin (Lovenox 40 mg/0.4 mL Injection) ergocalciferol (Vitamin D) fluticasone nasal (Flonase 0.05 mg/inh Nyack) metformin (MetFORMIN (Eqv-Glucophage XR) 500 mg oral [...] Follow-Up Appointments Sunday 12:40 PM EDT With: Penelope CASAS DO, FAAFP Where: [facility] Primary Care Normal [facility] Family Medicine Office/Clini c Noteon 10-23-2023 Family Medicine Office/Clinic Note Chief Complaint pt here for right ear drainage, onset January. comes and goes. ear is swollen, has drainage going into throat. History of Present Illness Sanna is a 38 yo female presenting today [...] Mouth: mucous membranes pink, moist and intact. Greentop posterior oropharynx, no palatal inflammation, uvula midline, [...] 106.2, kg, 10/23/23 16:55:00 EDT, Weight Dosing [facility] External Ambulatory Referral 2. Nasal polyps (J33.9: Nasal polyp, unspecified) pt reported - moved before previous ENT could perform surgery - submitted new referral at this time Ordered: [facility] External Ambulatory Referral 3. Deviated septum (J34.2: Deviated nasal septum) pt reported - moved before previous ENT could perform surgery - see #2 Ordered: [facility] External Ambulatory Referral 4. BMI 37.0-37.9, adult [...] Obesity ( (more content not included)... Normal [facility] Comment on above: Result Comment: Elec tronically Signed By: Missler PEANUT SEPARATORLourdes Obregon.br\Date and Time Signed: 10/23/23 17:13 EDT Patient [...] specializes in ear, nose, and throat disorders (field artillery crewmember, or ENT) for more tests and treatment. [...] Follow these instructions at home: ? Take call-rwv-bcuuxsv and prescription medicines only as told by [...] specializes in ear, nose, and throat disorders (field artillery crewmember, or ENT) for more tests and treatment. This information is not intended to replace advice given to you by your health care provider. Make sure you discuss any questions you have with your health care provider. Document Revised: 12/12/2021 Document Reviewed: 12/12/2021 ElseTechnoSpin Patient Education ? 2022 Elsevier Inc. Nasal Polyps Nasal polyps are growths [...] not cancer (more content not included)... Normal [facility] CT Abdomen/Pelvis w/o Contra ston [...] Oral contrast amount in ml's: 0 Normal [facility] B hCG Qualon 09-28-2023 Beta HCG ( test) Ql Negative Normal [facility] Comment on above: Performed By: #### 2 [id number] #### [facility] [address] [place] [address] BMPon 09-28-2023 Anion gap [Moles/Vol] 13 mmol/L Normal 6-16 [facility] Comment on above: Performed By: #### 2 [id number] #### [facility] [address] [place] [address] Calcium [Mass/Vol] 9.9 mg/dL Normal 8.9-11.1 [facility] Comment on above: Performed By: #### 2 660494 #### [facility] [address] [place] [address] Chloride [Moles/Vol] 101 mmol/L Normal 101-111 [facility] Comment on above: Performed By: #### 2 [id number] #### [facility] [address] [place] [address] CO2 [Moles/Vol] 25 mmol/L Normal 21-31 [facility] Comment on above: Performed By: #### 2 [id number] #### [facility] [address] [place] [address] Creatinine [Mass/Vol] 0.9 mg/dL Normal 0.5-1.3 [facility] Comment on above: Performed By: #### 2 [id number] #### [facility] [address] [place] [address] Glucose [Mass/Vol] 94 mg/dL Normal 55-199 [facility] Comment on above: Performed By: #### 2 189104 #### [facility] [address] [place] [address] Potassium [Moles/Vol] 3.6 mmol/L Normal 3.5-5.3 [facility] Comment on above: Performed By: #### 2 178457 #### [facility] [address] [place] [address] Sodium [Moles/Vol] 135 mmol/L Normal 135-145 [facility] Comment on above: Performed By: #### 2 [id number] #### [facility] [address] [place] [address] Urea nitrogen [Mass/Vol] 8 mg/dL Normal 5-21 [facility] Comment on above: Performed By: #### 2 [id number] #### [facility] [address] [place] [address] Urea nitrogen/Creatinine [Mass ratio] 9 No Units Low 10-20 [facility] Comment on above: Performed By: #### 2 128105 #### [facility] [address] [place] [address] CBC w/ Auto Diffon 4 Basophils/100 WBC (Bld) 0.7 % Normal 0.0-2.0 [facility] Comment on above: Performed By: #### 2 164995 #### [facility] [address] [place] [address] Basophils/Leukocytes Auto (Bld) [Pure # fraction] 0.1 E9/L Normal 0.0-0.2 [facility] Comment on above: Performed By: #### 2 557710 #### [facility] [address] [place] [address] Eosinophils (Bld) [#/Vol] 0.0 E9/L Normal 0.0-0.5 [facility] Comment on above: Performed By: #### 2 184847 #### [facility] [address] [place] [address] Eosinophils/100 WBC (Bld) 0.5 % Normal 0.0-8.0 [facility] Comment on above: Performed By: #### 2 393855 #### [facility] [address] [place] [address] Erythrocyte distribution width (RBC) [Ratio] 14.3 % High 10.9-14.2 [facility] Comment on above: Performed By: #### 2 226364 #### [facility] [address] [place] [address] Hematocrit (Bld) [Volume fraction] 39.5 % Normal 34.0-46.0 [facility] Comment on above: Performed By: #### 2 619107 #### [facility] [address] [place] [address] Hemoglobin (Bld) [Mass/Vol] 13.2 g/dL Normal 12.0-16.0 [facility] Comment on above: Performed By: #### 2 022307 #### [facility] [address] [place] [address] Lymphocytes (Bld) [#/Vol] 3.5 E9/L Normal 1.0-4.0 [facility] Comment on above: Performed By: #### 2 231569 #### [facility] [address] [place] [address] Lymphocytes/100 WBC (Bld) 35.6 % Normal 14.0-50.0 [facility] Comment on above: Performed By: #### 2 130480 #### [facility] [address] [place] [address] MCH (RBC) [Entitic mass] 29.3 pg Normal 27.0-34.0 [facility] Comment on above: Performed By: #### 2 881350 #### [facility] [address] [place] [address] MCHC (RBC) [Mass/Vol] 33.5 g/dL Normal 31.4-36.0 [facility] Comment on above: Performed By: #### 2 887728 #### [facility] [address] [place] [address] MCV (RBC) [Entitic vol] 87.4 fL Normal 80.0-100.0 [facility] Comment on above: Performed By: #### 2 974561 #### [facility] [address] [place] [address] Monocytes (Bld) [#/Vol] 0.7 E9/L Normal 0.2-1.0 [facility] Comment on above: Performed By: #### 2 545127 #### [facility] [address] [place] [address] Neutrophils (Bld) [#/Vol] 5.6 E9/L Normal 2.0-7.5 [facility] Comment on above: Performed By: #### 2 088575 #### [facility] [address] [place] [address] Neutrophils/100 WBC (Bld) 56.4 % Normal 36.0-75.0 [facility] Comment on above: Performed By: #### 2 496996 #### [facility] [address] [place] [address] Platelet mean volume (Bld) [Entitic vol] 8.1 fL Normal 6.4-10.8 [facility] Comment on above: Performed By: #### 2 197716 #### [facility] [address] [place] [address] Platelets (Bld) [#/Vol] 360.0 E9/L Normal 150.0-500. 0 [facility] Comment on above: Performed By: #### 2 470981 #### [facility] [address] [place] [address] RBC (Bld) [#/Vol] 4.5 E12/L Normal 4.3-5.9 [facility] Comment on above: Performed By: #### 2 504612 #### [facility] [address] [place] [address] WBC corrected for nucl RBC Auto (Bld) [#/Vol] 9.9 E9/L Normal 4.0-11.0 [facility] Comment on above: Performed By: #### 2 972261 #### [facility] [address] [place] [address] CHEMISTRYOrdered By: SYSTEM SYSTEM on 09-28-2023 Albumin [...] Consent for Treatmenton 08-30 Consent for Treatment [id number] Normal [facility] Discharge Instructionson Discharge Instructions [id number] Normal [facility] ED Clinical Summaryon 2023 ED Clinical Summary (Inserted Image. Lyssa ble to display) [place] [id number] ED Clinical Summary Person Information Name: SANNA RENDON [facility] Age: 37 Years : 1985 Sex: Female Language: Fijian PCP: Penelope CASAS DO, FAAFP Marital Status: Phone: [phone] Visit Id: Visit Reason: Medical problem - [...] 21:22:15 09/28/2023 21:22:15 09/28/2023 21:22:15 [facility] [address] [facility] [id number] PHYS DOC NOTES: MEDICAL INFORMATION: Prescriptions Given: Medications to Continue with No Changes Other Medications enoxaparin (Lovenox 40 mg/0.4 mL Injection) 40 Milligram Subcutaneous every 24 hours. ergocalciferol (Vitamin D) 2,000 International unit By Mouth every week. fluticasone nasal (Flonase 0.05 mg/inh Nyack) 2 Sprays Nasal Inhalation every day. each nostril. metformin (MetFORMIN (Eqv-Glucophage XR) 500 mg oral tablet, extended release) 2 Tablets By Mouth every day. PATIENT EDUCATION INFORMATION: Instructions: Abdominal Pain, Adult Follow up: With: Address: When: Penelope [facility], [address] [place] [phone] Business (1) In 3 days DIAGNOSIS: 1:Abdominal pain Normal [facility] ED Note-Physicianon 09-28-19 ED Note-Physician [...] this plan is discharged stable condition. Normal [facility] Comment on above: Result Comment: Elec tronically Signed By: Sidney Daly DO\.cedrick\Date and Time Signed: 09/28/23 21:12 EDT ED Note-Physician Basic Information Time Seen: Bijan Miramontes PA-C 09/28/2023 18:46 Chief Complaint Pt woke up around 7 am and started getting a pain on R side of belly button. States feels bloated and like her abdomen is coral.Was sent here from [facility] care for possible appendicitis. Nausea, denies vomiting. [...] mL, IV, Once Home Flonase 0.05 mg/inh Nyack, 2 spray(s), Nasal, Daily Lovenox 40 mg/0.4 [...] No qual (more content not included)... Normal [facility] Comment on above: Result Comment: Elec tronically Signed By: Fe QUINTEROS, Bijan\.br\Date and Time Signed: 09/28/23 18:50 EDT\.br\Electronically Co-Signed [...] these instructions at home: Medicines ? Take xfcf-owu-lnvnajw and prescription medicines only as told by [...] your condition for any changes. ? Take yorb-cou-jvgzeta and prescription medicines only as told by [...] provider. Document Revised: 06/04/2020 Document Reviewed: 08/25/2019 ElseTechnoSpin Patient Education ? 2022 [employer] Normal [facility] ED Patient Summaryon 024 ED Patient Summary (Inserted Image. Lyssa ble to display) [address] [address] Patient Discharge Instructions Person Information Name: SANNA RENDON Age: 37 Years Arrival Date: 09/28/2023 18:21:25 Discharge Diagnosis: 1:Abdominal pain Primary Care Physician: Penelope CASAS DO, FAAFP Provider Information Primary Provider: Benny Uribe DO Advanced Rn Diabetes:Bijan Miramontes PA-C The exam and treatment you received in the Emergency Department were for an urgent problem and are not intended as complete care. It is important that you follow up with a doctor, nurse practitioner, or physician?s captain assistant for ongoing care. If your symptoms become worse or you do not improve as expected and you are unable to reach your usual health care provider, you should return to the Emergency Department. We are available 24 hours a day. SANNA RENDON has been given the following list of patient education materials, prescriptions and follow-up instructions: Follow-up Instructions: With: Address: When: Penelope CASAS [address] [place] [address] [place] [phone] Business (1) In 3 days In the event that this physician does not participate in your insurance network, please consult with your insurance company to find a nearby participating provider. Patient Education Materials: Abdominal Pain, Adult A MESSAGE TO ALL PATIENTS REGARDING OPIOIDS PRESCRIPTION OPIOIDS: WHAT YOU NEED TO KNOW Prescription opioids can be used to help relieve icxccpkf-dw-mpblre pain and are often prescribed following a [...] be struggling with addiction, tell your health direct care provider and ask for guidance or call [facility]?S National Helpline at 4-134-050-OKCC. w Source: [place] Dep (more content not included)... Normal [facility] Family Medicine Office/Clini c Noteon [...] Recent travel: no 2 BM, Diarrhea 6x ruddy Sunday also symptoms began today post 16 months vaginal delivery History of Present Illness Reviewed and agree with above documented HPI by director medical writing. Portions of this record may have been created with voice recognition artificial intelligence software, specifically [employer], [employer] and or [employer]. Substitutions may have occurred due to the inherent limitations of voice recognition and artificial intelligence software. Patient is a 37-year-old female who presents to pending sale to [facility], for right lower quadrant pain, [...] Repeat BP 140/90. 37-year-old female presented to convenient care, for right lower quadrant abdominal pain, worsening symptoms throughout the day, history of ovarian cyst, still has her appendix, no right upper quadrant pain. Patient worsening pain on exam, but no acute abdomen. Patient is willing to go to the emergency room after being discharged from pending sale to [facility], for further evaluation of right lower [...] can o (more content not included)... Normal [facility] Comment on above: Result Comment: [...] 09-28-2023 Albumin [Mass/Vol] 4.8 g/dL Normal 3.3-5.0 [facility] Comment on above: Performed By: #### 2 [id number] #### [facility] [address] [place] [address] Albumin/Globulin (S) [Mass conc ratio] 1.6 Normal 1.1-2.2 [facility] Comment on above: Performed By: #### 2 095197 #### [facility] [address] [place] [address] ALP [Catalytic activity/Vol] 66 Int._Unit/L Normal 21-98 [facility] Comment on above: Performed By: #### 2 [id number] #### [facility] [address] [place] [address] ALT No additional P-5'-P [Catalytic activity/Vol] 16 Int._Unit/L Normal 6-46 [facility] Comment on above: Performed By: #### 2 988772 #### [facility] [address] [place] [address] AST [Catalytic activity/Vol] 15 Int._Unit/L Normal 5-43 [facility] Comment on above: Performed By: #### 2 602414 #### [facility] [address] [place] [address] Bilirubin [Mass/Vol] 0.3 mg/dL Normal 0.0-1.1 [facility] Comment on above: Performed By: #### 2 838100 #### [facility] [address] [place] [address] Bilirubin.direct [Mass/Vol] 0.0 mg/dL Normal 0.0-0.4 [facility] Comment on above: Performed By: #### 2 925789 #### [facility] [address] [place] [address] Bilirubin.indirect [Mass or moles/Vol] 0.3 mg/dL Normal 0.1-0.9 [facility] Comment on above: Performed By: #### 2 065960 #### [facility] [address] [place] [address] Globulin (S) [Mass/Vol] 3.0 g/dL Normal 1.4-4.0 [facility] Comment on above: Performed By: #### 2 749370 #### [facility] [address] [place] [address] Protein [Mass/Vol] 7.8 g/dL Normal 6.0-7.8 [facility] Comment on above: Performed By: #### 2 762713 #### [facility] [address] [place] [address] Lipase Levelon 09-28-2023 Lipase [Catalytic activity/Vol] 26 U/L Normal 13-58 [facility] Comment on above: Performed By: #### 2 909378 #### [facility] [address] [place] [address] Patient Educationon 09-28-19 Patient Education Cardiovascular Hypertension, [...] Keep all follow-up visits. Medicines ? Take tzxm-laf-ygbajpc and prescription medicines only as told by [...] For m (more content not included)... Normal [facility] RAD - Preliminary Cat Scan R eporton 09-28-2023 RAD - Preliminary Cat Scan Report [id number]#[id number] Normal [facility] SEROLOGYOrdered By: Amanda Siegel on 09-28-2023 Beta HCG ( test) Ql Negative (09/28/23 6:59 PM) Normal [facility] Man Sero UA with Cult Rflxon 09-28-19 24 Bilirubin Ql (U) Negative Normal Negative [facility] Comment on above: Performed By: #### 4 [id number] ####[facility] [address] [place] [address] Clarity (U) Clear Normal Clear [facility] Comment on above: Performed By: #### 4 [id number] ####[facility] [address] [place] [address] Color (U) Colorless Abnormal Yellow [facility] Comment on above: Result Comment: Micr oscopic readings are only performed on those samples that meet specific criteria set forth by [facility]. Performed By: #### 4 [id number] ####[facility] [address] [place] [place] [address] Glucose Ql (U) Negative Normal Negative [facility] Comment on above: Performed By: #### 4 [id number] ####[facility] [address] [place] [address] Hemoglobin Auto test strip (U) [Mass/Vol] Negative Normal Negative [facility] Comment on above: Performed By: #### 4 [id number] ####[place] [address] [place] [address] Ketones Auto test strip Ql (U) Negative Normal Negative [facility] Comment on above: Performed By: #### 4 [id number] ####[address] [place] [address] Leukocyte esterase Auto test strip Ql (U) Negative Normal Negative [facility] Comment on above: Performed By: #### 4 [id number] ####[address] [place] [address] Nitrite Auto test strip Ql (U) Negative Normal Negative [facility] Comment on above: Performed By: #### 4 [id number] ####[address] [place] [address] pH (U) 7.0 [pH] Invalid Interpretation Code 5.0-9.0 [facility] Comment on above: Performed By: #### 4 [id number] ####[place] [address] [place] [address] Protein Ql (U) Negative Normal Negative [facility] Comment on above: Performed By: #### 4 [id number] ####[place] [address] [place] [address] Specific gravity (U) [Rel density] 1.003 Invalid Interpretation Code 1.005-1.03 0 [facility] Comment on above: Performed By: #### 4 [id number] ####[place] [address] [facility] [place] [address] Urobilinogen (U) [Mass/Vol] Negative Normal Negative [facility] Comment on above: Performed By: #### 4 [id number] ####[facility] [address] [place] [address] Type of Urine collection method Clean Catch Normal [facility] Comment on above: Performed By: #### 4 [id number] ####[facility] [address] [place] [address] URINALYSISOrdered By: SYSTEM SYSTEM on 09-28-2023 Bilirubin Ql (U) Negative Normal Negativemg /dL [facility] UA Auto SS Clarity (U) Clear (09/28/23 7:35 PM) Normal Clear [facility] UA Auto SS Color (U) Colorless 1 *ABN* (09/28/23 7:35 PM) Invalid Interpretation Code Yellow [facility] UA Auto SS Comment on above: Interpretive Data: M icroscopic readings are only performed on those samples that meet specific criteria set forth by [facility]. Glucose Ql (U) Negative Normal Negativemg /dL [facility] UA Auto SS Hemoglobin Auto test strip (U) [Mass/Vol] Negative Normal Negativemg /dL [facility] UA Auto SS Ketones Auto test strip Ql (U) Negative Normal Negativemg /dL [facility] UA Auto SS Leukocyte esterase Auto test strip Ql (U) Negative Normal NegativeLe u/uL FT UA Auto SS Nitrite Auto test strip Ql (U) Negative Normal Negativemg /dL [facility] UA Auto SS pH (U) 7.0 *NA* (09/28/23 7:35 PM) Invalid Interpretation Code 5.0 - 9.0 [facility] UA Auto SS Protein Ql (U) Negative Normal Negativemg /dL [facility] UA Auto SS Specific gravity (U) [Rel density] 1.003 *NA* (09/28/23 7:35 PM) Invalid Interpretation Code 1.005 - 1.030 [facility] UA Auto SS Urobilinogen (U) [Mass/Vol] Negative Normal Negativemg /dL [facility] UA Auto SS URINALYSISOrdered By: Bijan Miramontes on 09-28-2023 UA Spec Desc Clean Catch (09/28/23 7:35 PM) Normal [facility] UA Auto SS Work Phone: eGFRon 09-28-2023 eGFR 84 mL/min/1.73 m2 Normal >=59 [facility] Comment on above: Order Comment: Order added by Discern Expert. Performed By: #### 1 [id number] #### [facility] [address] [place] [address] Ambulatory Visit Summaryon 0 08-03-2023 Ambulatory Visit Summary SANNA RENDON :1985 Visit Date:08/03/2023 Ambulatory Visit Instructions Your Diagnosis Antiphospholipid syndrome BMI 38.0-38.9,adult Class 2 severe obesity due to excess calories with serious comorbidity and body mass index (BMI) of 38.0 to 38.9 in adult Gestational diabetes H/O: CVA Pollen allergies History of gestational diabetes Your Care Team Attending Physician - Penelope CASAS DO, FAAFP Primary Care Physician - Penelope CASAS DO, FAAFP This Is Your Medications List Contact prescribing physician if questions or concerns enoxaparin (Lovenox 40 mg/0.4 mL Injection) ergocalciferol (Vitamin D) fluticasone nasal (Flonase 0.05 mg/inh Nyack) metformin (MetFORMIN (Eqv-Glucophage XR) 500 mg oral [...] Schedule the Following Appointments Follow Up with Penelope CASAS DO, FAAFP, FAM, PED When: In 4 months Where: [address], [place] [address]- You Need to Complete the Following HgbA1c, [...] Unchanged fluticasone nasal (Flonase 0.05 mg/ inh Nyack) 2 Sprays Nasal Inhalation Every day each [...] a mile (more content not included)... Normal [facility] Family Medicine Office/Clini c Noteon [...] comfortable with plan. PNMV Ordered: A1c POC [id number] Total time spent preparing the chart, conducting [...] Other Testing: Follow-up With When Contact Information Penelope CASAS DO, FAAFP, FAM, PED In 4 months [address] [facility], [place] [address]- Additional Instructions: Patient Education Exercising to Lose Weight Problem Lis (more content not included)... Normal [facility] Comment on above: Result Comment: Elec tronically Signed By: Penelope CASAS DO, FAAFP\.br\Date and Time Signed: 08/03/23 [...] health care provider or diet and nutrition and dietetics instructor (dietitian). This may include: ? Eating fewer [...] is e (more content not included)... Normal [facility] Patient Educationon 06-21-19 Patient Education [...] following in (more content not included)... Normal [facility] Lab Reportson 06-20-2023 Lab Reports [id number] [facility] Consultation Noteon 06-19-19 Consultation Note [id number] [facility] Ambulatory Visit Summaryon 0 05-25-2023 Ambulatory Visit Summary SANNA RENDON :1985 Visit Date:05/25/2023 Ambulatory Visit Instructions Your Diagnosis BMI 37.0-37.9, adult Other obesity Morbid obesity Your Care Team Attending Physician - Penelope CASAS DO, FAAFP Primary Care Physician - Penelope CASAS DO, FAAFP This Is Your Medications [...] Follow-Up Appointments Sunday 1:20 PM EDT With: Penelope CASAS DO, FAAFP Where: [facility] Primary Care Normal [facility] Family Medicine Office/Clini c Noteon [...] Benadryl. 2. 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 [...] 25 minutes. Follow-up With When Contact Information Penelope CASAS DO, FAAFP, FAM, PED In 2 months [address] [facility], [place] [address]- Additional Instructions: Patient Education Eustachian Tube Dysfunction Dyshidrotic Eczema Allergies, Tadeo (more content not included)... Normal [facility] Comment on above: Result Comment: Elec tronically Signed By: Penelope CASAS DO, FAAFP\.br\Date and Time Signed: 05/25/23 [...] ears completely after. General instructions ? Take fydu-yjq-atavlvn and prescription medicines only as told by [...] treated w (more content not included)... Normal [facility] C Urineon 05-03-2023 Bacteria identified Cx Nom (U) Microbiology PROCEDURE: Urine Culture [R1] SOURCE: U Random BODY SITE: COLLECTED DATE/TIME: 05/01/2023 18:00 EST RECEIVED DATE/TIME: 05/01/2023 18:08 EST START DATE/TIME: 05/01/2023 18:08 EST FREE TEXT SOURCE: Penelope CASAS DO, FAAFP, DO, FAAFP, Penelope Tony FINAL REPORTS Final Report [] Verified Date/Time: 05/03/2023 07:00 EST <10,000 cfu/ml Mixed skin contaminants Performing Locations R1: This test was performed at: [facility], [address] [place] [address], [facility]- , , Normal [facility] Comment on above: Performed By: #### 2 [id number] ####[place] [address] Consent for Treatmenton Consent for Treatment [id number]#[id number] Normal [facility] Urinalysison 05-01-2023 Bacteria LM Ql (Urine sed) TRACE Normal Trace [facility] Comment on above: Performed By: #### 1 [id number] ####[facility] [address] [place] [address] Bilirubin Ql (U) Negative Normal Negative [facility] Comment on above: Performed By: #### 1 [id number] ####[facility] [address] [place] [address] Clarity (U) CLOUDY Abnormal Clear [facility] Comment on above: Performed By: #### 1 [id number] ####[facility] [address] [place] [address] Color (U) YELLOW Normal Yellow [facility] Comment on above: Performed By: #### 1 [id number] ####[address] [address] Epithelial cells.squamous LM.HPF (Urine sed) [#/Area] /[HPF] Normal 0-2 [facility] Comment on above: Performed By: #### 1 [id number] ####[address] [address] Glucose Test strip (U) [Mass/Vol] Negative Normal Negative [facility] Comment on above: Performed By: #### 1 [id number] ####[facility] [address] [place] [address] Hemoglobin Ql (U) Negative Normal Negative [facility] Comment on above: Performed By: #### 1 [id number] ####[facility] [address] [place] [address] Ketones (U) [Mass/Vol] Negative Normal Negative [facility] Comment on above: Performed By: #### 1 [id number] ####[facility] [address] [place] [address] [place].plasma/Lithiu m.RBC (Bld) [Mass ratio] 0-3 Normal 0-3 [facility] Comment on above: Performed By: #### 1 [id number] ####[facility] [address] [place] [address] Nitrite Ql (U) Negative Normal Negative [facility] Comment on above: Performed By: #### 1 [id number] ####[address] [address] pH (U) 6.0 [pH] Invalid Interpretation Code 5.0-9.0 [facility] Comment on above: Performed By: #### 1 [id number] ####[facility] [address] [place] [address] Protein (U) [Mass/Vol] Negative Normal Negative [facility] Comment on above: Performed By: #### 1 [id number] ####[address] [address] Specific gravity (U) [Rel density] <=1.005 Invalid Interpretation Code 1.005-1.03 0 [facility] Comment on above: Performed By: #### 1 [id number] ####[address] [address] Type of Urine collection method Clean Catch Normal [facility] Comment on above: Performed By: #### 1 [id number] ####[address] [address] Urobilinogen Qn (U) 0.2 {Nicole'U}/dL Normal 0.0-1.0 [facility] Comment on above: Performed By: #### 1 [id number] ####[facility] [address] [place] [address] WBC Auto Ql (U) TRACE Abnormal Negative [facility] Comment on above: Performed By: #### 1 [id number] ####[address] [address] WBC LM.HPF (Urine sed) [#/Area] 0-5 Normal 0-5 [facility] Comment on above: Performed By: #### 1 [id number] ####[facility] [address] [place] [address] Ambulatory Visit Summaryon Ambulatory Visit Summary SANNA RENDON :1985 Visit Date:04/27/2023 Ambulatory Visit Instructions Your Diagnosis Systemic viral illness BMI 38.0-38.9,adult Morbid obesity Gestational diabetes H/O: hypothyroidism Your Care Team Attending Physician - Penelope CASAS DO, FAAFP Primary Care Physician - Penelope CASAS DO, FAAFP This Is Your Medications [...] Follow-Up Appointments Sunday 11:20 AM EST With: Penelope CASAS DO, FAAFP Where: [facility] Primary Care Normal [facility] CHEMISTRYOrdered By: SYSTEM SYSTEM on [...] has been having diarrhea since Sunday before [place], nonbloody with some associated stomach pain. She has been having some burning in her nipples when she is breast-feeding and wants her thyroid checked. Muscle aches and pains like flu Still breast feeding. No loss of taste nor smell. [id number] while taking Glucophage XR 500 mg p.o. [...] Push fluids and Tylenol and or ibuprofen woto-bsm-euholyl as directed. Patient does not appear ill [...] weight manag (more content not included)... Normal [facility] Comment on above: Result Comment: Elec tronically Signed By: PRAVEEN RESENDEZ FAAFP, Penelope Tony\.cedrick\Date and Time Signed: 04/27/23 12:53 EST Patient [...] plan? Your health care provider or certified fire investigator can help you make a plan for [...] stroke). Where to find more information ? [place] [employer]: www.diabetes.org Summary ? Exercising regularly is important for overall health, especially for people who have diabetes mellitus. ? Exercising has many health benefits. It increases muscle strength and bone density and reduces body fat and stress. It also lowers and controls blood glucose. ? Your health care provider or certified fire investigator can help you make an activity plan [...] provider. Document Revised: 01/12/2020 Document Reviewed: 01/12/2020 [employer] Patient Education ? 2022 [employer] Preventing Hypoglycemia Hypoglycemia occurs when the level of sugar (glucose) in the blood is too low. Hypoglycemia can happen in people who do or do not have diabetes (diabetes (more content not included)... Normal [facility] TSHon 04-27-2023 TSH Qn 4.04 m[IU]/L Normal 0.34-5.60 [facility] Comment on above: Performed By: #### 2 [id number] ####[facility] [address] [place] [address] Ambulatory Visit Summaryon Ambulatory Visit Summary SANNA RENDON :1985 Visit Date:02/15/2023 Ambulatory Visit Instructions Your Diagnosis BMI 38.0-38.9,adult Morbid obesity Gestational diabetes Right otitis externa Your Care Team Attending Physician - Penelope CASAS DO, FAAFP Primary Care Physician - Penelope CASAS DO, FAAFP This Is Your Medications [...] Schedule the Following Appointments Follow Up with Penelope CASAS DO, FAAFP, FAM, PED When: In 2 months Where: [address], [place] [address]- You Need to Complete the Following HgbA1c, [...] Suspected COVID-19 virus infection Vaginal alia Normal [facility] Family Medicine Office/Clini c Noteon 02-15-2023 Family Medicine Office/Clinic Note Chief Complaint States since Sunday evening her right ear is draining and is a little painful History of Present 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 She is continuing 500 mg of metformin [...] PRAVEEN Johnson (more content not included)... Normal [facility] Comment on above: Result Comment: Elec tronically Signed By: PRAVEEN RESENDEZ [facility], Penelope Tony\.br\Date and Time Signed: 02/15/23 10:13 EDT [...] cannot use soap and water, use hand manager it security. 2. Make sure your ears are clean [...] cannot use soap and water, use hand manager it security. Follow these instructions at home: ? Use [...] provider. Document Revised: 02/11/2020 Document Reviewed: 02/11/2020 [employer] Patient Education ? 2022 [employer]. Infectious Disease Otitis Externa Otitis externa is [...] you start to feel better. ? Take iemh-siu-mivpaxv and prescription medicines only as told by your doctor. ? Avoid getting water in your ears as told by your doctor. You may be told to avoid swimming or water sports for a few days. ? Keep all follow-up visits. How is this prevented? ? Keep your ears dry. Use the corner o (more content not included)... Normal [facility] Patient Educationon 12-23-19 23 Patient [...] these instructions at home: Medicines ? Take vvty-wxu-pdnafue and prescription medicines only as told by [...] the National Suicide Prevention Lifeline at or 350. This is open 24 hours a day. ? Text the Crisis Text Line at 613531. Summary ? If you have fatigue, you [...] provider. Document Revised: 02/06/2022 Document Reviewed: 02/06/2022 [employer] Patient Education ? 2022 [employer] Urology Urodynamic Testing Urodynamic tests are [...] urine (inco (more content not included)... Normal [facility] CHEMISTRYOrdered By: SYSTEM SYSTEM on [...] 05-09-2022 BASO # 0.0 103/ul Normal 0.0-0.1 [facility] Comment on above: Performed By: #### H IV12 #### [facility] [address] [address] [address] Edward Gill Basophils/100 WBC (Bld) 0.4 % Normal 0.2-2.0 [facility] Comment on above: Performed By: #### H IV12 #### [facility] [address] [address] [address] Edward Gill EO # 0.1 103/ul Normal 0.0-0.7 [facility] Comment on above: Performed By: #### H IV12 #### [facility] [address] [address] [address] Edward Gill Eosinophils/100 WBC (Bld) 1.3 % Normal 0.9-7.0 [facility] Comment on above: Performed By: #### H IV12 #### [facility] [address] [address] [address] Edward Gill Erythrocyte distribution width (RBC) [Ratio] 16.6 % Critically high 11.0-15.0 [facility] Comment on above: Performed By: #### H IV12 #### [facility] [address] [place] [address] Dr. Edward Gill Hematocrit (Bld) [Volume fraction] 30.2 % Critically low 36.0-48.0 [facility] Comment on above: Performed By: #### H IV12 #### [facility] [address] [place] [address] Dr. Edward Gill Hemoglobin (Bld) [Mass/Vol] 10.5 g/dL Critically low 12.0-16.0 [facility] Comment on above: Performed By: #### H IV12 #### [facility] [address] [place] [address] Dr. Edward Gill IG # 0.04 10e3/ul Critically high 0.00-0.03 [facility] Comment on above: Performed By: #### H IV12 #### [facility] [address] [place] [address] Dr. Edward Gill IG % 0.4 % Normal 0.0-0.5 [facility] Comment on above: Performed By: #### H IV12 #### [facility] [address] [place] [address] Dr. Edward Gill LYMPH # 3.1 103/ul Normal 1.2-3.8 [facility] Comment on above: Performed By: #### H IV12 #### [facility] [address] [place] [address] Dr. Edward Gill Lymphocytes/100 WBC (Bld) 34.2 % Normal 20.5-60.0 [facility] Comment on above: Performed By: #### H IV12 #### [facility] [address] [place] [address] Dr. Edward Gill MANUAL DIFF REQ NO Normal [facility] Comment on above: Performed By: #### H IV12 #### [facility] [address] [place] [address] Dr. Edward Gill MCH (RBC) [Entitic mass] 30.3 pg Normal 26.7-34.0 [facility] Comment on above: Performed By: #### H IV12 #### [facility] [address] [address] [address] Edward Gill MCHC (RBC) [Mass/Vol] 34.8 g/dL Normal 29.9-35.2 [facility] Comment on above: Performed By: #### H IV12 #### [facility] [address] [address] [address] Edward Gill MCV (RBC) [Entitic vol] 87.0 fL Normal 81.0-99.0 [facility] Comment on above: Performed By: #### H IV12 #### [facility] [address] [address] [address] Edward Gill MONO # 0.7 103/ul Normal 0.3-0.8 [facility] Comment on above: Performed By: #### H IV12 #### [facility] [address] [address] [address] Edward Gill Monocytes/100 WBC (Bld) 7.5 % Normal 1.7-12.0 [facility] Comment on above: Performed By: #### H IV12 #### [facility] [address] [place] [address] Dr. Edward Gill NEUT # 5.0 103/ul Normal 1.4-6.5 [facility] Comment on above: Performed By: #### H IV12 #### [facility] [address] [address] [address] Edward Gill Neutrophils/100 WBC (Bld) 56.2 % Normal 43.0-75.0 [facility] Comment on above: Performed By: #### H IV12 #### [facility] [address] [address] [address] Edward Gill Platelet mean volume (Bld) [Entitic vol] 9.8 fL Normal 9.5-13.5 [facility] Comment on above: Performed By: #### H IV12 #### [facility] [address] [address] [address] Edward Gill PLT 238 103/ul Normal 150-450 [facility] Comment on above: Performed By: #### H IV12 #### [facility] [address] [address] [address] Edward Gill RBC 3.47 106/ul Critically low 4.20-5.40 [facility] Comment on above: Performed By: #### H IV12 #### [facility] [address] [address] [address] Edward Gill WBC 9.0 103/ul Normal 4.0-11.0 [facility] Comment on above: Performed By: #### H IV12 #### [facility] [address] [address] [address] Edward Gill SCREENon 05-09-2022 SCREEN Negative Normal [facility] Comment on above: Performed By: #### F ETSCRN #### [facility] [address] [place] [address] Dr. Edward Gill DIRECT COOMBSon 05-08-2022 DIRECT ALEJANDRA Negative Normal [facility] Comment on above: Performed By: #### D IRCMB #### [facility] [address] [address] [address] Edward Gill POINT OF CARE GLUCOSEon Glucose [Mass/Vol] 117 mg/dL Critically high 74-106 [facility] Comment on above: Performed By: #### P OCGLUC ####[facility] [address] [address]Dr. Edward Gill TYPE AND SCREENon 05-08-2022 TYPE AND SCREEN Negative Normal [facility] Comment on above: Performed By: #### T NS #### [facility] [address] [address] [address] Edward Gill CBC AUTO DIFFon 05-07-2022 BASO # 0.0 103/ul Normal 0.0-0.1 [facility] Comment on above: Performed By: #### H IV12 #### [facility] [address] [address] [address] Edward Gill Basophils/100 WBC (Bld) 0.2 % Normal 0.2-2.0 [facility] Comment on above: Performed By: #### H IV12 #### [facility] [address] [place] [address] Dr. Edward Gill EO # 0.0 103/ul Normal 0.0-0.7 [facility] Comment on above: Performed By: #### H IV12 #### [facility] [address] [place] [address] Dr. Edward Gill Eosinophils/100 WBC (Bld) 0.5 % Critically low 0.9-7.0 [facility] Comment on above: Performed By: #### H IV12 #### [facility] [address] [place] [address] Dr. Edward Gill Erythrocyte distribution width (RBC) [Ratio] 16.1 % Critically high 11.0-15.0 [facility] Comment on above: Performed By: #### H IV12 #### [facility] [address] [place] [address] Dr. Edward Gill Hematocrit (Bld) [Volume fraction] 32.1 % Critically low 36.0-48.0 [facility] Comment on above: Performed By: #### H IV12 #### [facility] [address] [place] [address] Dr. Edward Gill Hemoglobin (Bld) [Mass/Vol] 11.7 g/dL Critically low 12.0-16.0 [facility] Comment on above: Performed By: #### H IV12 #### [facility] [address] [place] [address] Dr. Edward Gill IG # 0.04 10e3/ul Critically high 0.00-0.03 [facility] Comment on above: Performed By: #### H IV12 #### [facility] [address] [place] [address] Dr. Edward Gill IG % 0.5 % Normal 0.0-0.5 [facility] Comment on above: Performed By: #### H IV12 #### [facility] [address] [place] [address] Dr. Edward Gill LYMPH # 2.4 103/ul Normal 1.2-3.8 [facility] Comment on above: Performed By: #### H IV12 #### [facility] [address] [place] [address] Dr. Edward Gill Lymphocytes/100 WBC (Bld) 27.2 % Normal 20.5-60.0 [facility] Comment on above: Performed By: #### H IV12 #### [facility] [address] [place] [address] Dr. Edward Gill MANUAL DIFF REQ NO Normal [facility] Comment on above: Performed By: #### H IV12 #### [facility] [address] [place] [address] Dr. Edward Gill MCH (RBC) [Entitic mass] 30.0 pg Normal 26.7-34.0 [facility] Comment on above: Performed By: #### H IV12 #### [facility] [address] [place] [address] Dr. Edward Gill MCHC (RBC) [Mass/Vol] 36.4 g/dL Critically high 29.9-35.2 [facility] Comment on above: Performed By: #### H IV12 #### [facility] [address] [place] [address] Dr. Edward Gill MCV (RBC) [Entitic vol] 82.3 fL Normal 81.0-99.0 [facility] Comment on above: Performed By: #### H IV12 #### [facility] [address] [place] [address] Dr. Edward Gill MONO # 0.7 103/ul Normal 0.3-0.8 [facility] Comment on above: Performed By: #### H IV12 #### [facility] [address] [place] [address] Dr. Edward Gill Monocytes/100 WBC (Bld) 7.7 % Normal 1.7-12.0 [facility] Comment on above: Performed By: #### H IV12 #### [facility] [address] [place] [address] Dr. Edward Gill NEUT # 5.5 103/ul Normal 1.4-6.5 [facility] Comment on above: Performed By: #### H IV12 #### [facility] [address] [address] [address] Edward Gill Neutrophils/100 WBC (Bld) 63.9 % Normal 43.0-75.0 [facility] Comment on above: Performed By: #### H IV12 #### [facility] [address] [address] [address] Edward Glil Platelet mean volume (Bld) [Entitic vol] 10.0 fL Normal 9.5-13.5 [facility] Comment on above: Performed By: #### H IV12 #### [facility] [address] [place] [address] Dr. Edward Gill PLT 274 103/ul Normal 150-450 [facility] Comment on above: Performed By: #### H IV12 #### [facility] [address] [place] [address] Dr. Edward Gill RBC 3.90 106/ul Critically low 4.20-5.40 [facility] Comment on above: Performed By: #### H IV12 #### [facility] [address] [address] [address] Edward Gill WBC 8.7 103/ul Normal 4.0-11.0 [facility] Comment on above: Performed By: #### H IV12 #### [facility] [address] [place] [address] Dr. Edward Gill [facility]on SARS-CoV-2 (COVID-19) RNA LELO+probe Ql (Unsp spec) Not detected Normal NOT DETECTED [facility] Comment on above: Result Comment: When [...] this test is supported by the Nuclear Pharmacist of Health and Human Service's declaration that [...] used). Performed By: #### H IV12 #### [facility] [address] [address] [address] Edward Gill DRUG SCREEN RAPID (URINE)on 05-07-2022 AMP Negative Normal NEGATIVE [facility] Comment on above: Performed By: #### D RUGRPD ####[facility] [address] [address]Dr. Edward Gill BAR Negative Normal NEGATIVE [facility] Comment on above: Performed By: #### D RUGRPD ####[facility] [address] [address]Dr. Edward Gill BUP Negative Normal NEGATIVE [facility] Comment on above: Performed By: #### D RUGRPD ####[facility] [address] [address]Dr. Edward Gill BZO Negative Normal NEGATIVE [facility] Comment on above: Performed By: #### D RUGRPD ####[facility] [address] [address]Dr. Edward Gill IND[place] Negative Normal NEGATIVE [facility] Comment on above: Performed By: #### D RUGRPD ####[facility] [address] [address]Dr. Edward Gill CUT-OFFS SEE BELOW Normal [facility] Comment on above: Result Comment: AMP (Amphetamine): 500ng/mL, BAR (Barbituates): 200 ng/mL, BZO (Benzodiazepines): 150 ng/mL, BUP (Buprenorphine): 10 ng/mL, INDIA (Cocaine): 150 ng/mL, mAMP (Methamphetamine): 500 ng/mL, MTD (Methadone): 200 ng/mL, OPI (Opiates): 100 ng/mL, OXY (Oxycodone): 100 ng/mL, PCP (Phencyclidine): 25 ng/mL, PPX (Propoxyphene): 300 ng/mL, THC (Cannabinoids): 50 ng/mL, TCA (Trycyclic Antidepressants): 300 ng/mL Performed By: #### D RUGRPD ####[facility] [address] [id number] Edward Gill DRUG CUT HEADER DRUG CLASS TEST SYST EM CUT-OFF CONCENTRATIONS ARE FOLLOWS: Normal [facility] Comment on above: Performed By: #### D RUGRPD ####[facility] [address] [place], [place] [address]Dr. Edward Gill mAMP Negative Normal NEGATIVE [facility] Comment on above: Performed By: #### D RUGRPD ####[facility] [address] [place], [place] [address]Dr. Edward Gill MTD Negative Normal NEGATIVE [facility] Comment on above: Performed By: #### D RUGRPD ####[facility] [address] [place], [place] [address]Dr. Edward Gill OPI Negative Normal NEGATIVE [facility] Comment on above: Performed By: #### D RUGRPD ####[facility] [address] [place], [place] [address]Dr. Edward Gill OXY Negative Normal NEGATIVE [facility] Comment on above: Performed By: #### D RUGRPD ####[facility] [address] [place] [address]Dr. Edward Gill PCP Negative Normal NEGATIVE [facility] Comment on above: Performed By: #### D RUGRPD ####[facility] [address] [place] [address]Dr. Edward Gill PPX Negative Normal NEGATIVE [facility] Comment on above: Performed By: #### D RUGRPD ####[facility] [address] [place], [place] [address]Dr. Edward Gill TCA Negative Normal NEGATIVE [facility] Comment on above: Performed By: #### D RUGRPD ####[facility] [address] [place] [address]Kq. Edward Gill THC Negative Normal NEGATIVE [facility] Comment on above: Performed By: #### D RUGRPD ####[facility] [address] [place], [place] [address]TvLazara Gill US PREG BIOPHY W NON STRESSo [...] HUMERA KIM Date: 2022-05-06 19:05 Normal [facility] US PREG BIOPHY W NON STRESSo [...] ANGIE GALDAMEZ Date: 2022-05-01 16:16 Normal [facility] GROUP B STREP CULTUREon 03-31 S. [...] R F Vancomycin =0.5 S F Normal [facility] Comment on above: Performed By: #### G BSCX ####[facility] [address]rhrqw[address] [place], [place] [address]QvLazara Gill US PREG BIOPHY W NON STRESSo [...] by: HUMERA KIM Date: 2022-04-17 17:08 Normal [facility] US PREG GROWTHon 04-17-2022 US PREG [...] by: HUMERA KIM Date: 2022-04-17 16:49 Normal [facility] US PREG BIOPHY W NON STRESSo [...] by: HUMERA KIM Date: 2022-04-12 08:56 Normal [facility] GLUCOSE, BLOOD (POC)on 04-05 Glucose [Mass/Vol] 106 mg/dL Abnormal 74 - 99 mg/dL [facility] US PREG BIOPHY W NON [...] by: HUMERA KIM Date: 2022-04-01 16:08 Normal [facility] US PREG BIOPHY W NON STRESSo [...] by: HUMERA KIM Date: 2022-03-27 08:54 Normal [facility] US PREG GROWTHon 03-17-2022 US PREG [...] by: HUMERA KIM Date: 2022-03-17 06:04 Normal [facility] TSHon 02-25-2022 TSH 2.586 uIU/mL Normal 0.358-3.74 0 [facility] Comment on above: Performed By: #### H IV12 #### [facility] [address] [place] [address] Dr. Edward Gill TYPE AND SCREENon 02-25-2022 TYPE AND SCREEN Negative Normal [facility] Comment on above: Performed By: #### T NS #### [facility] [address] [place] [address] [address] Edward Gill PAP ACOG PANEL 2: 30 to 65on 02-21-2022 . . Normal [facility] Comment on above: Result Comment: Perf ormed at: WB Performed By: #### [id number] ####[facility] [address] [place] [address]Dr. Edward Gill Age Gdln ACOG Testing 30-65 [facility] Comment on above: Performed By: #### 4 [id number] ####[facility] Q[address]glezrxt[address] [place] [address]Dr. Edward Gill DIAGNOSIS: Comment [facility] Comment on above: Result Comment: NEGA TIVE FOR INTRAEPITHELIAL LESION OR MALIGNANCY. Performed at: WB Performed By: #### 4 [id number] ####[facility] [address] [place], [place] [address]DrLazara Gill HPV Aptima Negative Normal Negative [facility] Comment on above: Result Comment: This nucleic acid amplification test detects fourteen high-risk HPV types (16,18,31,33,35,39,45,51,52,56,58,59,66,68) without differentiation. Performed at: =G Performed By: #### [id number] ####[facility] [address] [place], [place] [address]DrLazara Gill Methodology: Comment Normal [facility] Comment on above: Result Comment: This liquid based ThinPrep(R) pap test was screened with the use of an image guided system. Performed at: WB Performed By: #### 4 [id number] ####[facility] Detht[address] [place], [place] [address]DrLazara Gill Note: Comment Normal [facility] Comment on above: Result Comment: The Pap smear is a screening test designed to aid in the detection of premalignant and malignant conditions of the uterine cervix. It is not a diagnostic procedure and should not be used as the sole means of detecting cervical cancer. Both false-positive and false-negative reports do occur. . Performed at: WB Performed By: #### 4 [id number] ####[facility] [address] [place], [place] [address]DrLazara Gill Performed by: Comment Normal [facility] Comment on above: Result Comment: Zenaida Diop, Pest Control Technician (ASCP) Performed at: WB Performed By: #### 4 [id number] ####[facility] [address] [place], [place] [address]DrLazara Gill Specimen adequacy: Comment Normal [facility] Comment on above: Result Comment: Sati sfactory for evaluation. No endocervical component is identified. Performed at: WB Performed By: #### 4 [id number] ####[facility] K[address]se[address] [place], [place] [address]Dr. Edward Gill CHLAMYDIA/GONOCOCCUS LELO (SW AB/URINE/PAPon 02-16-2022 Chlamydia trachomatis, LELO Negative Normal Negative [facility] Comment on above: Performed By: #### C T/NGNA ####[facility] T[address] [place] [id number]. Edward Gill Neisseria gonorrhoeae, LELO Negative Normal Negative [facility] Comment on above: Performed By: #### C T/NGNA ####[facility] Ox[address]cl[address]pqi[address] [place] [address]Dr. Edward Gill VAGINITIS/VAGINOSIS DNA PROB Norman 02-16-2022 Alia species Negative Normal Negative [facility] Comment on above: Performed By: #### V AGINT ####[facility] [address] [place] [address]Dr. Edward Gill Gardnerella vaginalis Negative Normal Negative [facility] Comment on above: Performed By: #### V AGINT ####[facility] [address]xum[address] [place] [address]Dr. Edward Gill Trichomonas vaginalis Negative Normal Negative [facility] Comment on above: Performed By: #### V AGINT ####[facility] Ezfqlmsabc4383 [place] [address]Dr. Edward Gill TSHon 01-24-2022 TSH 1.536 uIU/mL Normal 0.358-3.74 0 [facility] Comment on above: Performed By: #### T SH ####[facility] Lsqodeyphz[address] [place] [address]Dr. Edward Gill GLUCOSE - 1HRon 01-07-2022 Glucose [Mass/Vol] 160 mg/dL Critically high 74-106 T [facility] Comment on above: Performed By: #### G LU1HR ####[facility] Om[address] [place] [address]Dr. Edward Gill TSHon 12-28-2021 TSH 1.899 uIU/mL Normal 0.358-3.74 0 [facility] Comment on above: Performed By: #### H IV12 #### [facility] [address] [place], [place] [address] Dr. Edward Gill AFP, Maternalon 11-24-2021 Determined by Ultrasound [facility] Comment on above: Performed By: #### A AFPM #### [address] [address] Nuclear Powerplant Mechanic: Pancho Cano MD [address] [id number] Nuclear Powerplant Mechanic: Zhang Bledsoe MD Due Date SEE NOTE Normal [facility] Comment on above: Result Comment: Resu lts for Estimated Due Date: 05 13 22 Performed By: #### A AFPM #### [address] [address] Nuclear Powerplant Mechanic: Pancho Cano MD [address] [phone] Nuclear Powerplant Mechanic: Zhang Bledsoe MD Family History No [facility] Comment on above: Performed By: #### A AFPM #### [address] [address] Nuclear Powerplant Mechanic: Pancho Cano MD [address] [address] Nuclear Powerplant Mechanic: Zhang Bledsoe MD Gestat Age (exact) 15 wks, 2 days Normal [facility] Comment on above: Performed By: #### A AFPM #### [address] [address] Nuclear Powerplant Mechanic: Pancho Cano MD [address] [phone] Nuclear Powerplant Mechanic: Zhang Bledsoe MD Ins Req Matern Diab [facility] Comment on above: Performed By: #### A AFPM #### [address] [address] Nuclear Powerplant Mechanic: Pancho Cano MD [address] [address] Nuclear Powerplant Mechanic: Zhang Bledsoe MD Interpretation Screen Neg [facility] Comment on above: Result Comment: (NOT E) INTERPRETATION: SCREEN NEGATIVE for open spina bifida Neural Tube Defects (NTD) Negative Pre-Test Post-Test Cutoff Neural Tube Defects Risks 1:1030 1:2690 1:250 Comments: The risk of an open neural tube defect is less than the screening cut-off. This test was developed and its performance characteristics determined by [employer]. It has not been cleared or approved by the [place] Food and Drug Administration. This test was performed in a CLIA certified laboratory and is intended for clinical purposes. Performed By: #### A AFPM #### [address] [address] Nuclear Powerplant Mechanic: Pancho Cano MD [address] [phone] Nuclear Powerplant Mechanic: Zhang Bledsoe MD [age] [facility] Comment on above: Performed By: #### A AFPM #### [address] [address] Nuclear Powerplant Mechanic: Pancho Cano MD [address] [phone] Nuclear Powerplant Mechanic: Zhang Bledsoe MD Maternal Race Nonblack [facility] Comment on above: Performed By: #### A AFPM #### [address] [address] Nuclear Powerplant Mechanic: Pancho Cano MD [address] [phone] Nuclear Powerplant Mechanic: Zhang Bledsoe MD Maternal Weight 228.0 lbs. [facility] Comment on above: Performed By: #### A AFPM #### [facility] [address] [address] Nuclear Powerplant Mechanic: Pancho Cano MD [address] [address] Nuclear Powerplant Mechanic: Zhang Bledsoe MD MoM for AFP 1.52 Normal [facility] Comment on above: Performed By: #### A AFPM #### [address] [address] Nuclear Powerplant Mechanic: Pancho Cano MD [address] [phone] Nuclear Powerplant Mechanic: Zhang Bledsoe MD Number of Fetuses Joe Normal [facility] Comment on above: Performed By: #### A AFPM #### [address] [address] Nuclear Powerplant Mechanic: Pancho aCno MD [address] [phone] Nuclear Powerplant Mechanic: Zhang Bledsoe MD Patient's AFP 35 ng/mL Normal [facility] Comment on above: Performed By: #### A AFPM #### [address] [address] Nuclear Powerplant Mechanic: Pancho Cano MD [address] [phone] Nuclear Powerplant Mechanic: Zhang Bledsoe MD Smoking No [facility] Comment on above: Performed By: #### A AFPM #### [address] [address] Nuclear Powerplant Mechanic: Pancho Cano MD [address] [phone] Nuclear Powerplant Mechanic: Zhang Bledsoe MD Specimen See Note [facility] Comment on above: Result Comment: (NOT E) Initial sample Performed by [facility], [address] [place] [id number] [email or web address], Yayo Moncada MD, PHD, Lab. Director Performed By: #### A AFPM #### [address] [address] Nuclear Powerplant Mechanic: Pancho Cano MD [facility] [address] [place] [address] Nuclear Powerplant Mechanic: Zhang Bledsoe MD AFP, Maternalon 11-22-2021 Current Smoking NO [facility] Comment on above: Performed By: #### A AFPM #### [address] [address] Nuclear Powerplant Mechanic: Pancho Cano MD [address] [address] Nuclear Powerplant Mechanic: Zhang Bledsoe MD Dating [facility] Comment on above: Performed By: #### A AFPM #### [address] [address] Nuclear Powerplant Mechanic: Pancho Cano MD [address] [phone] Nuclear Powerplant Mechanic: Zhang Bledsoe MD Diabetic NO [facility] Comment on above: Performed By: #### A AFPM #### [address] [address] Nuclear Powerplant Mechanic: Pancho Cano MD [address] [phone] Nuclear Powerplant Mechanic: Zhang Bledsoe MD Donor Egg INFORMATION NOT PROVIDED [facility] Comment on above: Performed By: #### A AFPM #### [address] [address] Nuclear Powerplant Mechanic: Pancho Cano MD [facility] [address] [place], [place] [phone] Nuclear Powerplant Mechanic: Zhang Bledsoe MD Estimated Due Date [id number] [facility] Comment on above: Performed By: #### A AFPM #### [address] [address] Nuclear Powerplant Mechanic: Pancho Cano MD [facility] [address] [place] [address] Nuclear Powerplant Mechanic: Zhang Beldsoe MD Family History Negative [facility] Comment on above: Performed By: #### A AFPM #### [address] [address] Nuclear Powerplant Mechanic: Pancho Cano MD [facility] [address] [place] [address] Nuclear Powerplant Mechanic: Zhang Bledsoe MD In Vitro Fertalizat INFORMATION NOT PROVIDED [facility] Comment on above: Performed By: #### A AFPM #### [address] [address] Nuclear Powerplant Mechanic: Pancho Cano MD [address] [address] Nuclear Powerplant Mechanic: Zhang Bledsoe MD LMP date [facility] Comment on above: Performed By: #### A AFPM #### [address] [address] Nuclear Powerplant Mechanic: Pancho Cano MD [facility] [address] [place] [address] Nuclear Powerplant Mechanic: Zhang Bledsoe MD Maternal date [facility] Comment on above: Performed By: #### A AFPM #### [address] [address] Nuclear Powerplant Mechanic: Pancho Cano MD [facility] [address] [place] [address] Nuclear Powerplant Mechanic: Zhang Bledsoe MD Maternal Weight 228 [facility] Comment on above: Performed By: #### A AFPM #### [address] [address] Nuclear Powerplant Mechanic: Pancho Cano MD [facility] [address] [place] [address] Nuclear Powerplant Mechanic: Zhang Bledsoe MD Monochorionic Twins NO Normal [facility] Comment on above: Performed By: #### A AFPM #### [address] [address] Nuclear Powerplant Mechanic: Pancho Cano MD [facility] [address] [place] [address] Nuclear Powerplant Mechanic: Zhang Bledsoe MD Patient Weight Units LBS Normal [facility] Comment on above: Performed By: #### A AFPM #### [address] [address] Nuclear Powerplant Mechanic: Pancho Cano MD [address] [address] Nuclear Powerplant Mechanic: Zhang Bledsoe MD Race (Maternal) WHITE Normal [facility] Comment on above: Performed By: #### A AFPM #### [address] [address] Nuclear Powerplant Mechanic: Pancho Cano MD [address] [address] Nuclear Powerplant Mechanic: Zhang Bledsoe MD Repeat Specimen INFORMATION NOT PROVIDED [facility] Comment on above: Performed By: #### A AFPM #### [address] [address] Nuclear Powerplant Mechanic: Pancho Cano MD [facility] [address] [place] [address] Nuclear Powerplant Mechanic: Zhang Bledsoe MD Valproic/Carbamazep INFORMATION NOT PROVIDED [facility] Comment on above: Performed By: #### A AFPM #### [address] [address] Nuclear Powerplant Mechanic: Pancho Cano MD [facility] [address] [place] [address] Nuclear Powerplant Mechanic: Zhang Bledsoe MD MISCELLANEOUS TESTINGon - Send Out Report FWD TO [facility] TRK [phone] [facility] Test [facility]ON [facility]OW[facility]LL [facility] Miscellaneouson 11-21-2021 Send Out Report FWD TO [facility] TRK [phone] Normal [facility] Comment on above: Performed By: #### C MIS #### [facility] [address] [place], [place] [id number] Nuclear Powerplant Mechanic: Pancho Cano MD Test Name [facility] Comment on above: Performed By: #### C MIS #### [facility] [address] [place], [place] [id number] Nuclear Powerplant Mechanic: Pancho Cano MD HEP B SURFACE ANTIGEN SCREEN on 10-26-2021 HBsAg Screen Negative Normal Negative [facility] Comment on above: Performed By: #### H IV12 #### [facility] [address] [place], [place] [address] Dr. Edward Gill HEPATITIS C VIRUS AB W/ REFL EX QUANTon 10-26-2021 HCV AB <0.1 Normal 0.0-0.9 [facility] Comment on above: Performed By: #### H CVPCRR ####[facility] [address] [place], [place] [address]NzDr. Edward Gill Interpretation: Comment Normal [facility] Comment on above: Result Comment: Nega tive Not infected with HCV, unless recent infection is suspected or other evidence exists to indicate HCV infection. Performed By: #### H CVPCRR ####[facility] [address] [place], [place] [address]CdDr. Edward Gill HIV 1 AND 2 WITH REFLEXon HIV Screen 4th Generation wRfx Non-Reactive Normal Non Reactive [facility] Comment on above: Result Comment: HIV Negative HIV-1/HIV-2 antibodies and HIV-1 p24 antigen were NOT detected. There is no laboratory evidence of HIV infection. Performed By: #### H IV12 #### [facility] [address] [place] [address] Dr. Edward Gill RPR QUANTon 10-26-2021 Rapid Plasma Reagin, Quant Non-Reactive Normal NonRea<1:1 [facility] Comment on above: Result Comment: Plea Note: This test does not meet current guidelines for screening and diagnosis of syphilis. This test is intended for following treatment response in patients being treated for syphilis infection. To screen for syphilis infection, a reflex cascade that includes both RPR and a treponema-specific assay should be utilized, such as Treponema pallidum (Syphilis) Screening [place] (567925) or Rapid Plasma Reagin (RPR) Test With Reflex to Quantitative RPR and Confirmatory Treponema pallidum Antibodies (520423). Performed By: #### R PRQ ####[facility] [address] [place], [place] [address]Dr. Edward Gill RUBELLA AB IGGon 10-26-2021 Rubella Antibodies, IgG 1.02 index Normal Immune >0.99 [facility] Comment on above: Result Comment: Non- immune <0.90 Equivocal 0.90 - 0.99 Immune >0.99 Performed By: #### R UBIGG ####[facility] [address] [place], [place] [address]Dr. Edward Gill CBC AUTO DIFFon 10-25-2021 BASO # 0.0 103/ul Normal 0.0-0.1 [facility] Comment on above: Performed By: #### H IV12 #### [facility] [address] [place] [address] Dr. Edward Gill Basophils/100 WBC (Bld) 0.3 % Normal 0.2-2.0 [facility] Comment on above: Performed By: #### H IV12 #### [facility] [address] [place] [address] Dr. Edward Gill EO # 0.1 103/ul Normal 0.0-0.7 [facility] Comment on above: Performed By: #### H IV12 #### [facility] [address] [place] [address] Dr. Edward Gill Eosinophils/100 WBC (Bld) 0.6 % Critically low 0.9-7.0 [facility] Comment on above: Performed By: #### H IV12 #### [facility] [address] [place] [address] Dr. Edward Gill Erythrocyte distribution width (RBC) [Ratio] 14.1 % Normal 11.0-15.0 [facility] Comment on above: Performed By: #### H IV12 #### [facility] [address] [place] [address] Dr. Edward Gill Hematocrit (Bld) [Volume fraction] 36.2 % Normal 36.0-48.0 [facility] Comment on above: Performed By: #### H IV12 #### [facility] [address] [place] [address] Dr. Edward Gill Hemoglobin (Bld) [Mass/Vol] 12.5 g/dL Normal 12.0-16.0 [facility] Comment on above: Performed By: #### H IV12 #### [facility] [address] [place] [address] Dr. Edward Gill IG # 0.05 10e3/ul Critically high 0.00-0.03 [facility] Comment on above: Performed By: #### H IV12 #### [facility] [address] [place] [address] Dr. Edward Gill IG % 0.4 % Normal 0.0-0.5 [facility] Comment on above: Performed By: #### H IV12 #### [facility] [address] [place] [address] Dr. Edward Gill LYMPH # 2.7 103/ul Normal 1.2-3.8 [facility] Comment on above: Performed By: #### H IV12 #### [facility] [address] [place] [address] Dr. Edward Gill Lymphocytes/100 WBC (Bld) 23.2 % Normal 20.5-60.0 [facility] Comment on above: Performed By: #### H IV12 #### [facility] [address] [place] [address] Dr. Edward Gill MANUAL DIFF REQ NO Normal [facility] Comment on above: Performed By: #### H IV12 #### [facility] [address] [place] [address] Dr. Edward Gill MCH (RBC) [Entitic mass] 30.6 pg Normal 26.7-34.0 [facility] Comment on above: Performed By: #### H IV12 #### [facility] [address] [place] [address] Dr. Edward Gill MCHC (RBC) [Mass/Vol] 34.5 g/dL Normal 29.9-35.2 [facility] Comment on above: Performed By: #### H IV12 #### [facility] [address] [place] [address] Dr. Edward Gill MCV (RBC) [Entitic vol] 88.7 fL Normal 81.0-99.0 [facility] Comment on above: Performed By: #### H IV12 #### [facility] [address] [place] [address] Dr. Edward Gill MONO # 0.7 103/ul Normal 0.3-0.8 [facility] Comment on above: Performed By: #### H IV12 #### [facility] [address] [place] [address] Dr. Edward Gill Monocytes/100 WBC (Bld) 5.8 % Normal 1.7-12.0 [facility] Comment on above: Performed By: #### H IV12 #### [facility] [address] [place] [address] Dr. Edward Gill NEUT # 8.0 103/ul Critically high 1.4-6.5 [facility] Comment on above: Performed By: #### H IV12 #### [facility] [address] [place] [address] Dr. Edward Gill Neutrophils/100 WBC (Bld) 69.7 % Normal 43.0-75.0 [facility] Comment on above: Performed By: #### H IV12 #### [facility] [address] [place] [address] Dr. Edward Gill Platelet mean volume (Bld) [Entitic vol] 9.3 fL Critically low 9.5-13.5 [facility] Comment on above: Performed By: #### H IV12 #### [facility] [address] [place] [address] Dr. Edward Gill PLT 338 103/ul Normal 150-450 [facility] Comment on above: Performed By: #### H IV12 #### [facility] [address] [place] [address] Dr. Edward Gill RBC 4.08 106/ul Critically low 4.20-5.40 [facility] Comment on above: Performed By: #### H IV12 #### [facility] [address] [place] [address] Dr. Edward Gill WBC 11.4 103/ul Critically high 4.0-11.0 [facility] Comment on above: Performed By: #### H IV12 #### [facility] [address] [place] [address] Dr. Edward Gill CULTURE URINEon 10-25-2021 CULTURE URINE Culture Observations : LIGHT GROWTH OF MIXED GENITAL MARTHA. NO POTENTIAL PATHOGENS SEEN. Normal [facility] Comment on above: Performed By: #### U RCX #### [facility] [address] [place] [address] Dr. Edward Gill GLYCOHEMOGLOBIN A1Con 2021 ADA RECOMMENDATION SEE BELOW Normal [facility] Comment on above: Result Comment: ADA RECOMMENDED LIMIT 4.0 - 6.0 ADA THERAPEUTIC TARGET < 7.0 ACTION SUGGESTED > 7.0 Performed By: #### A 1C #### [facility] [address] [place] [address] Dr. Edward Gill Glucose [Mass/Vol] 117 mg/dL Normal [facility] Comment on above: Performed By: #### A 1C #### [facility] [address] [place] [address] Dr. Edward Gill HbA1c (Bld) [Mass fraction] 5.7 % Normal 4.5-6.2 [facility] Comment on above: Performed By: #### A 1C #### [facility] [address] [place] [address] [address] Edward Gill DILLON BOX TEST PT SEND OUTo n 10-25-2021 SENT TO REF LAB 10/25/2021 Normal [facility] Comment on above: Performed By: #### H IV12 #### [facility] [address] [place] [address] [address] Edward Gill TSHon 10-25-2021 TSH 1.700 uIU/mL Normal 0.358-3.74 0 [facility] Comment on above: Performed By: #### T SH ####[facility] [address] [place] [address]Dr. Edward Gill TYPE AND SCREENon 10-25-2021 TYPE AND SCREEN Negative Normal [facility] Comment on above: Performed By: #### T NS ####[facility] [address] [place] [address]Dr. Edward Gill US PREG TVon 09-23-2021 US [...] HUMERA KIM Date: 2021-09-23 10:27 Normal [facility] PREG QUANT HCGon 09-01-2021 HCG QUANT 1242 mIU/mL Normal [facility] Comment on above: Performed By: #### H IV12 #### [facility] [address] [place] [address] Dr. Edward Gill HCG RANGE SEE BELOW Normal [facility] Comment on above: Result Comment: 5-50 0-1 WEEK 40-300 1-2 WEEKS 100-1,000 2-3 WEEKS 500-6,000 3-4 WEEKS 5,000-200,000 1-2 MONTHS 10,000-100,000 2-3 MONTHS 3,000-50,000 2ND TRIMESTER 1,000-50,000 3RD TRIMESTER Performed By: #### H IV12 #### [facility] [address] [address] [address] Edward Gill CHEMISTRYOrdered By: SYSTEM SYSTEM [...] rate/Area] mL/min/1.73 m2 Normal >=59mL/min /1.73 m2 [facility] S GFR/1.73 sq M.predicted among non-blacks MDRD (S/P/Bld) [Vol rate/Area] mL/min/1.73 m2 Normal >=59mL/min /1.73 m2 [facility] Chem S Glucose [Mass/Vol] 85 mg/dL Normal [...] 367.0 E9/L Normal 150.0 - 500.0 E9/L [facility] HemeAutoSS RBC (Bld) [#/Vol] 4.2 E12/L Low 4.3 - 5.9 E12/L [facility] HemeAutoSS WBC corrected for nucl RBC Auto (Bld) [#/Vol] 7.9 E9/L Normal 4.0 - 11.0 E9/L [facility] HemeAutoSS PREG QUANT HCGon 08-29-2021 HCG QUANT 374 mIU/mL Normal [facility] Comment on above: Performed By: #### P REGQNT ####[facility] [address] [id number]. Edward Gill HCG RANGE SEE BELOW Normal [facility] Comment on above: Result Comment: 5-50 0-1 WEEK 40-300 1-2 WEEKS 100-1,000 2-3 WEEKS 500-6,000 3-4 WEEKS 5,000-200,000 1-2 MONTHS 10,000-100,000 2-3 MONTHS 3,000-50,000 2ND TRIMESTER 1,000-50,000 3RD TRIMESTER Performed By: #### P REGQNT ####[facility] [address] [place], [place] [address]Dr. Edward Gill PREG QUANT HCGon 08-26-2021 HCG QUANT 99 mIU/mL Normal [facility] Comment on above: Performed By: #### H IV12 #### [facility] [address] [place] [address] Dr. Edward Gill HCG RANGE SEE BELOW Normal [facility] Comment on above: Result Comment: 5-50 0-1 WEEK 40-300 1-2 WEEKS 100-1,000 2-3 WEEKS 500-6,000 3-4 WEEKS 5,000-200,000 1-2 MONTHS 10,000-100,000 2-3 MONTHS 3,000-50,000 2ND TRIMESTER 1,000-50,000 3RD TRIMESTER Performed By: #### H IV12 #### [facility] [address] [place] [address] Dr. Edward Gill PREG QUANT HCGon 08-24-2021 HCG QUANT 37 mIU/mL Normal [facility] Comment on above: Performed By: #### P REGQNT ####[facility] [address] [place], [place] [address]OwLazara Gill HCG RANGE SEE BELOW Normal [facility] Comment on above: Result Comment: 5-50 0-1 WEEK 40-300 1-2 WEEKS 100-1,000 2-3 WEEKS 500-6,000 3-4 WEEKS 5,000-200,000 1-2 MONTHS 10,000-100,000 2-3 MONTHS 3,000-50,000 2ND TRIMESTER 1,000-50,000 3RD TRIMESTER Performed By: #### P REGQNT ####[facility] [address] [place], [place] [address]VbLazara Gill CHEMISTRYOrdered By: SYSTEM SYSTEM on 08-19-2021 [...] Normal >=59mL/min /1.73 m2 [facility] S Globulin (S) [Mass/Vol] [...] Normal 4.0 - 11.0 E9/L [facility] HemeAutoSS HARDWARE ENGINEER - Office Visiton 07- HARDWARE ENGINEER - Office Visit Chief ComplaintCom plains of: heavy bleeding Declines 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 manager, Susie Salomon, ROSE History of Present IllnessSanna is a 32yo here as a new [...] stroke 07/2017 PSH as above POB- 2007 [id number] 17week loss subchorionic [id number] 39weeks bleeding at 5weeks for 2 weeks diet [id number] calories exercise none 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 [...] History History of Oral Surgery Tooth Extraction [place] Tooth Family History No pertinent family history Family history of cerebrovascular accident (CVA) (V17.1) (Z82.3) Family history of diabetes mellitus (V18.0) (Z83.3) Family history of cerebrovascular accident (CVA) (V17.1) (Z82.3) Family history of cerebrovascular accident (CVA) (V17.1) (Z82.3) Allergies No Known Drug Allergies Recorded By: Susie Salomon; 11/08/2017 4:19:42 PM Current Meds Ciprofloxacin HCl - 500 MG Oral Tablet;Therapy: [id number] to Recorded Dispense: 0 Days ; #: Sufficient Tablet; Refill: 0; BUBBA = N; Record; Last Updated By: Susie Salomon; 11/08/2017 4:19:42 PM Plavix 75 MG Oral Tablet;Therapy: [id number] to Recorded Dispense: 0 Days ; #: Sufficient Tablet; Refill: 0; BUBBA = N; Record; Last Updated By: Susie Salomon; 11/08/2017 4:19:42 PM Provera 10 MG Oral Tablet;Therapy: [id number] to Recorded Dispense: 0 Days ; #: Sufficient Tablet; Refill: 0; BUBBA = N; Record; Last Updated By: Susie Salomon; 11/08/2017 4:19:42 PM Vitals Vital Signs Recorded: 08Nov2017 04:15GLAkxjzaza123Hepbrelxr 15Hvcisn3 ft 6 rgVsakqc060 lb BMI Sthytuuryr40.57BSA Calculated1.4RAM62Ylg4459Qs in Scale6-7 Physical ExamConstitutional: Alert and in no acute distress. Well developed, well nourished. Head and Face: Head and face: Normal. Psychiatric: Alert and oriented x 3. Affect normal to patient baseline. Mood: Appropriate. Diagnoses/Problems Anemia (285.9) (D64.9) Asthma (493.90) (J45.909) Depression with anxiety (300.4) (F41.8) History of Oral Surgery Tooth Extraction [place] Tooth No pertinent family history : Mother [...] GIDeclines STI testing todayWeight gain, offered a employment coordinator consult and she declined. Encouraged exercise. Signatures Electronically signed by : RICHARD Ulrich; Nov 12 2017 8:46PM EST (Author) Normal [facility] Antiphospholipid Abs IgG/IgM on 05-29-2017 Antiphospholipid Ab-IgG 196 GPL Critically high 0-14 [facility] Comment on above: Result Comment: INTE RPRETIVE INFORMATION: High-Specificity Antiphospholipid Antibody,IgG14 GPL or less......Itfmnnzw77 26 GPL.........Indeterminate Suggest repeat testing in 12 [...] RPRETIVE INFORMATION: High-Specificity Antiphospholipid Antibody,IgM14 MPL or less......Odfezoyq27 37 MPL.........Indeterminate Suggest repeat testing in 12 weeks38 MPL or greater...PositiveHigh-specificity antiphospholipid IgG and IgM antibodies are directedagainsta mixture of phosphatidylserine, phosphatidic acid, and beta-2glycoprotein 1antigens. These antibodies are more specific than cardiolipin IgG andIgMantibodies in the diagnosis of antiphospholipid syndrome (APS).Performed by [facility],[address] [place] [id number] kez.DataContact, Zhang Bledsoe MD - Lab. Director RONA Miscellaneous test 1on 05-28-2017 Miscellaneous Test 1 SEE NOTE Normal [facility] Comment on above: Result Comment: Test name [...] Additional information and recommendations for testingmay befound [email or web address].Performed by [facility],[address] [employer] [facility] [place] [address] kkj.DataContact, Zhang Bledsoe MD - Lab. Director Cardiolipin Antibodies, IgA, IgG, IgMon 05-28-2017 Cardiolipin Ab IgA 0 APL Normal 0-11 [facility] Comment on above: Result Comment: INTE RPRETIVE INFORMATION: Cardiolipin Antibodies, IgA0-11 APL: Qxcyfgym80-59 APL: Wfhzeurqruirr16-82 APL: Low to Moderately Kvzjqiss64 APL or above: High PositivePerformed by [facility],[address] [facility] [address] ozw.DataContact, Zhang Bledsoe MD - Lab. Director Cardiolipin Ab IgG 111 GPL Critically high 0-14 [facility] Comment on above: Result Comment: INTE RPRETIVE INFORMATION: Anti-Cardiolipin IgG Ab0-14 GPL: [id number] GPL: Cadlfmfvxrvjr46-41 GPL: Low to Moderately Nhmvyemw33 GPL or above: High PositiveThe persistent presence [...] Comment: INTE RPRETIVE INFORMATION: Anti-Cardiolipin IgM0-12 MPL: Aurhdtpn74-07 MPL: Jgolzfnjbwfds11-47 MPL: Low to Moderately Hbadodnm12 MPL or above: High PositiveThe persistent presence [...] by PCRTest developed and characteristics determined by [facility]. SeeCompliance Statement A: DataContact/CSPerformed by [employer],[address] [facility] [place] [address] fdf.DataContact, Zhang Bledsoe MD - Lab. Director Jennifer Simpson Virus Source CSF Normal [facility] Oligoclonal Band Profileon 0 05-28-2017 Albumin 3840 mg/dL Normal [id number] [facility] Albumin 5.2 ratio Normal 0.0-9.0 [facility] Albumin, CSF 20 mg/dL Normal 0-35 [facility] CSF IgG Synthesis Rate <0.0 Normal <=8.0 [facility] CSF Oligoclonal Bands Negative Normal Negative [facility] CSF Oligoclonal Bands Number 0 Bands Normal 0-1 [facility] Globulin 1060 mg/dL Normal [id number] [facility] Comment on above: Result Comment: REFE RENCE INTERVAL: Immunoglobulin GAccess complete set of age- and/or gender-specific reference intervalsforthis test in the [facility] Test Directory (DataContact). IgG Index 0.45 ratio Normal 0.28-0.66 [facility] Immunoglobulin G CSF 2.5 mg/dL Normal 0.0-6.[address] [facility] INR Coag RelTime (Bld) 0.12 {INR} Normal 0.09-0.25 [facility] Interpretation See Note Normal [facility] Comment on above: Result Comment: Isoe lectric focusing/immunofixation reveals no oligoclonal bands ineitherthe CSF or the serum. This is considered to be a negative result foroligoclonal bands. Approximately 5 percent of patients with clinicallydefinitive multiple sclerosis will have a negative result.Performed by [facility],[address] [facility] [address] fjq.DataContact, Zhang Bledsoe MD - Lab. Director Myelin Basic Protein, CSFon 05-27-2017 [facility] Protein 1.82 ng/mL Normal 0.00-5.50 [facility] Comment on above: Result Comment: INTE RPRETIVE INFORMATION: Myelin Basic ProteinTest developed and characteristics determined by [facility]. SeeCompliance Statement D: DataContact/CSPerformed by [employer],[address], [facility] [place] [address] vsb.DataContact, Zhang Bledsoe MD - Lab. Director [employer] Miscellaneous test 1on 05-26-2017 [facility] Prompt [id number] Normal [facility] Comment on above: Result Comment: Fuentes ected result; [place] [id number] on 05/25/2017 at 13:14 by V/AUT [facility] Miscellaneous test 1on 05-25-2017 [employer] Prompt [id number] Normal [facility] Comment on above: [...] Hospital Fluid Clot Evaluation see below Normal [facility] Comment on above: Result Comment: No C lots Seen Total Nucleated Cells 0 K/uL Normal 0-8 [facility] Total Red Blood Cells 0 K/uL Normal [facility] CSF Glucoseon 05-25-2017 CSF Glucose 54 mg/dL Normal 50-70 [facility] CSF Proteinon 05-25-2017 CSF Protein 41 mg/dL Normal 15-45 [facility] Creatine Kinaseon 05-25-2017 Creatine kinase (CK) 71 U/L Normal 0-[address] [facility] Culture, CSFon 05-25-2017 Culture, CSF OR DERED [...] 10.7 s Normal 8.1-13.7 [facility] Vital Signs Date Time Vital Sign Value Performing Clinician Deborah mast 12-11-2024 09:28-0400 Body mass index (BMI) [Ratio] 33.41 kg/m2 Wilton Montez DO Work Phone: [facility] 12-11-2024 09:28-0400 Body weight 93.89 kg Wilton Montez DO Work Phone: [facility] 12-11-2024 09:28-0400 Diastolic blood pressure 70 mm[Hg] Wilton Montez DO Work Phone: [facility] 12-11-2024 09:28-0400 Systolic blood pressure 120 mm[Hg] Wilton Montez DO Work Phone: [facility] 11-20-2024 10:53-0400 Body mass index (BMI) [Ratio] 33.57 kg/m2 Wilton Montez DO Work Phone: [facility] 11-20-2024 10:53-0400 Body weight 94.35 kg Wilton Montez DO Work Phone: [facility] 11-20-2024 10:53-0400 Diastolic blood pressure 76 mm[Hg] Wilton Montez DO Work Phone: [facility] 11-20-2024 10:53-0400 Systolic blood pressure 108 mm[Hg] Wilton Montez DO Work Phone: [facility] 11-19-2024 13:07-0400 Body mass index (BMI) [Ratio] 33.73 kg/m2 Lorena Enciso RN Work Phone: [facility] 11-19-2024 13:07-0400 Body weight 94.8 kg Lorena Enciso RN Work Phone: [facility] 10-30-2024 09:32-0400 Body mass index (BMI) [Ratio] 33.81 kg/m2 Wilton Montez DO Work Phone: [facility] 10-30-2024 09:32-0400 Body weight 95.03 kg Wilton Montez DO Work Phone: [facility] 10-30-2024 09:32-0400 Diastolic blood pressure 76 mm[Hg] Wilton Montez DO Work Phone: [facility] 10-30-2024 09:32-0400 Systolic blood pressure 110 mm[Hg] Wilton Montez DO Work Phone: [facility] 10-28-2024 14:23-0400 Body mass index (BMI) [Ratio] 33.46 kg/m2 Katherine Negrete GEAR TOOTH GRINDING MACHINE OPERATOR.ATHLETIC COACH Work Phone: [facility] 10-28-2024 14:23-0400 Body temperature 97 [degF] Katherine Negrete GEAR TOOTH GRINDING MACHINE OPERATOR.ATHLETIC COACH Work Phone: [facility] 10-28-2024 14:23-0400 Body weight 94.1 kg Katherine Negrete GEAR TOOTH GRINDING MACHINE OPERATOR.ATHLETIC COACH Work Phone: [facility] 10-28-2024 14:23-0400 Diastolic blood pressure 77 mm[Hg] Katherine Negrete GEAR TOOTH GRINDING MACHINE OPERATOR.ATHLETIC COACH Work Phone: [facility] 10-28-2024 14:23-0400 Heart rate 82 /min Katherine Negrete GEAR TOOTH GRINDING MACHINE OPERATOR.ATHLETIC COACH Work Phone: [facility] 10-28-2024 14:23-0400 Respiratory rate 16 /min Katherine Negrete APRN.ATHLETIC COACH Work Phone: [facility] 10-28-2024 14:23-0400 SaO2% (BldA) [Mass fraction] 100 % Katherine Negrete GEAR TOOTH GRINDING MACHINE OPERATOR.ATHLETIC COACH Work Phone: [facility] 10-28-2024 14:23-0400 Systolic blood pressure 122 mm[Hg] Katherine Negrete GEAR TOOTH GRINDING MACHINE OPERATOR.ATHLETIC COACH Work Phone: [facility] 10-02-2024 14:10-0400 Body mass index (BMI) [Ratio] 33.89 kg/m2 Noms Nurse [facility] 10-02-2024 14:10-0400 Body weight 95.25 kg Noms Nurse [facility] 10-02-2024 14:10-0400 Diastolic blood pressure 78 mm[Hg] Noms Nurse [facility] 10-02-2024 14:10-0400 Systolic blood pressure 124 mm[Hg] Noms Nurse [facility] 07-24-2024 12:07-0400 Body mass index (BMI) [Ratio] 34.44 kg/m2 Wilton Montez DO Work Phone: [facility] 07-24-2024 12:07-0400 Body weight 96.8 kg Wilton Montez DO Work Phone: [facility] 07-24-2024 12:07-0400 Diastolic blood pressure 84 mm[Hg] Wilton Montez DO Work Phone: [facility] 07-24-2024 12:07-0400 Systolic blood pressure 120 mm[Hg] Wilton Montez DO Work Phone: [facility] 06-30-2024 08:27-0500 Blood Pressure Location Penelope STYLESLE [facility] 06-30-2024 08:27-0500 Diastolic blood pressure 72 mm[Hg] Penelope KAPLE [facility] 06-30-2024 08:27-0500 Heart rate 77 /min Penelope KAPLE [facility] 06-30-2024 08:27-0500 SaO2% (BldA) [Mass fraction] 99 % Penelope KAPLE [facility] 06-30-2024 08:27-0500 Systolic blood pressure 136 mm[Hg] Penelope KAPLE [facility] 06-23-2024 15:21-0500 Body mass index (BMI) [Ratio] 34.93 kg/m2 Wilton Montez DO Work Phone: [facility] 06-23-2024 15:21-0500 Body weight 98.16 kg Wilton Montez DO Work Phone: [facility] 06-23-2024 15:21-0500 Diastolic blood pressure 74 mm[Hg] Wilton Montez DO Work Phone: [facility] 06-23-2024 15:21-0500 Systolic blood pressure 112 mm[Hg] Wilton Herrmann DO Work Phone: [facility] 06-19-2024 16:14-0500 Blood Pressure Location JESSICA BACA [facility] 06-19-2024 16:14-0500 Diastolic blood pressure 72 mm[Hg] JESSICA MAXAMARISTONY [facility] 06-19-2024 16:14-0500 Heart rate 74 /min JESSICA SOPHIEDOUGTONY [facility] 06-19-2024 16:14-0500 SaO2% (BldA) [Mass fraction] 100 % JESSICA BARRIOSDOUGTONY [facility] 06-19-2024 16:14-0500 Systolic blood pressure 126 mm[Hg] JESSICA BARRIOSDOUGTONY [facility] 06-09-2024 13:55-0500 Blood Pressure Location Penelope STEPHANILE [facility] 06-09-2024 13:55-0500 Diastolic blood pressure 72 mm[Hg] Penelope KAPLE [facility] 06-09-2024 13:55-0500 Heart rate 78 /min Penelope KAPLE [facility] 06-09-2024 13:55-0500 SaO2% (BldA) [Mass fraction] 99 % Penelope KAPLE [facility] 06-09-2024 13:55-0500 Systolic blood pressure 178 mm[Hg] Penelope KAPLE [facility] 06-02-2024 11:43-0500 Body mass index (BMI) [Ratio] 34.51 kg/m2 Wilton Montez DO Work Phone: [facility] 06-02-2024 11:43-0500 Body weight 96.98 kg Wilton Montez DO Work Phone: [facility] 06-02-2024 11:43-0500 Diastolic blood pressure 60 mm[Hg] Wilton Montez DO Work Phone: [facility] 06-02-2024 11:43-0500 Systolic blood pressure 120 mm[Hg] Wilton Montez DO Work Phone: [facility] 05-28-2024 13:07-0500 Body height 167.7 cm Kristofer Calix MD Work Phone: [facility] 05-28-2024 13:07-0500 Body mass index (BMI) [Ratio] 35.02 kg/m2 Kristofer Calix MD Work Phone: [facility] 05-28-2024 13:07-0500 Body temperature 97.59 [degF] Kristofer Calix MD Work Phone: [facility] 05-28-2024 13:07-0500 Body weight 98.5 kg Kristofer Calix MD Work Phone: [facility] 05-28-2024 13:07-0500 Diastolic blood pressure 83 mm[Hg] Kristofer Calix MD Work Phone: [facility] 05-28-2024 13:07-0500 Heart rate 72 /min Kristofer Calix MD Work Phone: [facility] 05-28-2024 13:07-0500 Respiratory rate 16 /min Kristofer Calix MD Work Phone: [facility] 05-28-2024 13:07-0500 SaO2% (BldA) [Mass fraction] 99 % Kristofer Calix MD Work Phone: [facility] 05-28-2024 13:07-0500 Systolic blood pressure 123 mm[Hg] Kristofer Calix MD Work Phone: [facility] 05-06-2024 14:40-0500 Body mass index (BMI) [Ratio] 35.41 kg/m2 Wilton Montez DO Work Phone: [facility] 05-06-2024 14:40-0500 Body weight 99.52 kg Wilton Montez DO Work Phone: [facility] 05-06-2024 14:40-0500 Diastolic blood pressure 80 mm[Hg] Wilton Montez DO Work Phone: [facility] 05-06-2024 14:40-0500 Systolic blood pressure 120 mm[Hg] Wilton Montez DO Work Phone: [facility] 04-04-2024 10:57-0500 Body mass index (BMI) [Ratio] 35.85 kg/m2 [facility] Nurse [facility] 04-04-2024 10:57-0500 Body weight 100.75 kg [facility] Nurse [facility] 02-05-2024 13:29-0400 Blood Pressure Location Penelope CASAS [facility] 02-05-2024 13:29-0400 Body temperature 98.06 [degF] Penelope KAPLE [facility] 02-05-2024 13:29-0400 Diastolic blood pressure 70 mm[Hg] Penelope KAPLE [facility] 02-05-2024 13:29-0400 Heart rate 76 /min Penelope KAPLE [facility] 02-05-2024 13:29-0400 Respiratory rate 16 /min Penelope KAPLE [facility] 02-05-2024 13:29-0400 SaO2% (BldA) [Mass fraction] 99 % Penelope KAPLE [facility] 02-05-2024 13:29-0400 Systolic blood pressure 122 mm[Hg] Penelope CASAS [facility] 02-02-2024 14:39-0400 Blood Pressure Location Anni Gudimella [facility] 02-02-2024 14:39-0400 Body temperature 98.06 [degF] Anni Gudimella [facility] 02-02-2024 14:39-0400 Diastolic blood pressure 84 mm[Hg] Anni Gudimella [facility] 02-02-2024 14:39-0400 Heart rate 98 /min Anni Gudimella [facility] 02-02-2024 14:39-0400 SaO2% (BldA) [Mass fraction] 99 % Anni Gudimella [facility] 02-02-2024 14:39-0400 Systolic blood pressure 121 mm[Hg] Anni Gudimella [facility] 01-02-2024 13:45-0400 Body height 167.7 cm Kristofer Calix MD Work Phone: [facility] 01-02-2024 13:45-0400 Body mass index (BMI) [Ratio] 36.52 kg/m2 Kristofer Calix MD Work Phone: [facility] 01-02-2024 13:45-0400 Body temperature 97.11 [degF] Kristofer Calix MD Work Phone: [facility] 01-02-2024 13:45-0400 Body weight 102.7 kg Kristofer Calix MD Work Phone: [facility] 01-02-2024 13:45-0400 Diastolic blood pressure 81 mm[Hg] Kristofer Calix MD Work Phone: [facility] 01-02-2024 13:45-0400 Heart rate 91 /min Kristofer Calix MD Work Phone: [facility] 01-02-2024 13:45-0400 Respiratory rate 16 /min Kristofer Calix MD Work Phone: [facility] 01-02-2024 13:45-0400 SaO2% (BldA) [Mass fraction] 100 % Kristofer Calix MD Work Phone: [facility] 01-02-2024 13:45-0400 Systolic blood pressure 128 mm[Hg] Kristofer Calix MD Work Phone: [facility] 11-29-2023 13:40-0400 Body temperature 97.7 [degF] Chair Bedford Work Phone: [facility] 11-29-2023 13:40-0400 Diastolic blood pressure 79 mm[Hg] Chair Stew Work Phone: [facility] 11-29-2023 13:40-0400 Heart rate 75 /min Chair Bedford Work Phone: [facility] 11-29-2023 13:40-0400 Respiratory rate 16 /min Chair Bedford Work Phone: [facility] 11-29-2023 13:40-0400 SaO2% (BldA) [Mass fraction] 99 % Chair Bedford Work Phone: [facility] 11-29-2023 13:40-0400 Systolic blood pressure 114 mm[Hg] Chair Bedford Work Phone: [facility] 11-22-2023 14:00-0400 Body temperature 98.2 [degF] Chair Bedford Work Phone: [facility] 11-22-2023 14:00-0400 Diastolic blood pressure 75 mm[Hg] Chair Bedford Work Phone: [facility] 11-22-2023 14:00-0400 Heart rate 79 /min Chair Bedford Work Phone: [facility] 11-22-2023 14:00-0400 Respiratory rate 16 /min Chair Stew Work Phone: [facility] 11-22-2023 14:00-0400 SaO2% (BldA) [Mass fraction] 99 % Chair Bedford Work Phone: [facility] 11-22-2023 14:00-0400 Systolic blood pressure 111 mm[Hg] Chair Bedford Work Phone: [facility] 11-15-2023 14:08-0400 Diastolic blood pressure 84 mm[Hg] Chair Stew Work Phone: [facility] 11-15-2023 14:08-0400 Heart rate 85 /min Chair Stew Work Phone: [facility] 11-15-2023 14:08-0400 Respiratory rate 18 /min Chair Bedford Work Phone: [facility] 11-15-2023 14:08-0400 SaO2% (BldA) [Mass fraction] 96 % Chair Stew Work Phone: [facility] 11-15-2023 14:08-0400 Systolic blood pressure 129 mm[Hg] Chair Bedford Work Phone: [facility] 11-09-2023 14:44-0400 Blood Pressure Location Monica Saba [facility] 11-09-2023 14:44-0400 Body temperature 97.34 [degF] Monica Saba [facility] 11-09-2023 14:44-0400 Diastolic blood pressure 74 mm[Hg] Monica Saba [facility] 11-09-2023 14:44-0400 Heart rate 85 /min Monica Saba [facility] 11-09-2023 14:44-0400 Respiratory rate 16 /min Monica Saba [facility] 11-09-2023 14:44-0400 SaO2% (BldA) [Mass fraction] 99 % Monica Saba [facility] 11-09-2023 14:44-0400 Systolic blood pressure 122 mm[Hg] Monica Saba [facility] 10-23-2023 16:48-0400 Blood Pressure Location Lourdes Garber [facility] 10-23-2023 16:48-0400 Body temperature 97.52 [degF] Lourdes Garber [facility] 10-23-2023 16:48-0400 Diastolic blood pressure 60 mm[Hg] Lourdes Garber [facility] 10-23-2023 16:48-0400 Heart rate 86 /min Lourdes Garber [facility] 10-23-2023 16:48-0400 SaO2% (BldA) [Mass fraction] 99 % Lourdes Garber [facility] 10-23-2023 16:48-0400 Systolic blood pressure 122 mm[Hg] Lourdes Garber [facility] 09-28-2023 21:17-0400 Body temperature 98.06 [degF] Benny Uribe [facility] 09-28-2023 21:17-0400 Diastolic blood pressure 68 mm[Hg] Benny Uribe [facility] 09-28-2023 21:17-0400 Heart rate 67 /min Benny Rony [facility] 09-28-2023 21:17-0400 Mean blood pressure 84 mm[Hg] Benny Rony [facility] 09-28-2023 21:17-0400 SaO2% (BldA) [Mass fraction] 95 % Benny Rony [facility] 09-28-2023 21:17-0400 Systolic blood pressure 117 mm[Hg] Benny Rony [facility] 09-28-2023 20:00-0400 Diastolic blood pressure 75 mm[Hg] Benny Rony [facility] 09-28-2023 20:00-0400 Heart rate 78 /min Benny Rony [facility] 09-28-2023 20:00-0400 Mean blood pressure 95 mm[Hg] Benny Rony [facility] 09-28-2023 20:00-0400 Respiratory rate 20 /min Benny Rony [facility] 09-28-2023 20:00-0400 Systolic blood pressure 134 mm[Hg] Benny Rony [facility] 09-28-2023 19:30-0400 Diastolic blood pressure 85 mm[Hg] Benny Rony [facility] 09-28-2023 19:30-0400 Heart rate 80 /min Benny Rony [facility] 09-28-2023 19:30-0400 Mean blood pressure 101 mm[Hg] Benny Rony [facility] 09-28-2023 19:30-0400 Respiratory rate 18 /min Benny Rony [facility] 09-28-2023 19:30-0400 SaO2% (BldA) [Mass fraction] 100 % Benny Uribe [facility] 09-28-2023 19:30-0400 Systolic blood pressure 132 mm[Hg] Bennycourtney Uribe [facility] 09-28-2023 19:00-0400 Respiratory rate 17 /min Benny Uribe [facility] 09-28-2023 18:32-0400 Body temperature 98.42 [degF] Benny Rony [facility] 09-28-2023 18:32-0400 Heart rate 69 /min Benny Uribe [facility] 09-28-2023 17:46-0400 Diastolic blood pressure 90 mm[Hg] JANET DUNHAM [facility] 09-28-2023 17:46-0400 Mean blood pressure 109 mm[Hg] JANET DUNHAM [facility] 09-28-2023 17:46-0400 Systolic blood pressure 148 mm[Hg] JANET DUNHAM [facility] 09-28-2023 17:40-0400 Blood Pressure Location JANET DUNHAM [facility] 09-28-2023 17:40-0400 Body temperature 97.88 [degF] JANET DUNHAM [facility] 09-28-2023 17:40-0400 Diastolic blood pressure 70 mm[Hg] JANET DUNHAM [facility] 09-28-2023 17:40-0400 Heart rate 79 /min JANET DUNHAM [facility] 09-28-2023 17:40-0400 SaO2% (BldA) [Mass fraction] 97 % JANET DUNHAM [facility] 09-28-2023 17:40-0400 Systolic blood pressure 150 mm[Hg] AJNET DUNHAM [facility] 08-03-2023 11:42-0400 Blood Pressure Location Penelope KAPLE [facility] 08-03-2023 11:42-0400 Body temperature 98.06 [degF] Penelope KAPLE [facility] 08-03-2023 11:42-0400 Diastolic blood pressure 80 mm[Hg] Penelope KAPLE [facility] 08-03-2023 11:42-0400 Heart rate 72 /min Penelope KAPLE [facility] 08-03-2023 11:42-0400 Respiratory rate 16 /min Penelope KAPLE [facility] 08-03-2023 11:42-0400 SaO2% (BldA) [Mass fraction] 99 % Penelope KAPLE [facility] 08-03-2023 11:42-0400 Systolic blood pressure 120 mm[Hg] Penelope KAPLE [facility] 06-15-2023 14:05-0500 Body height 167.7 cm Kristofer Calix MD Work Phone: [facility] 06-15-2023 14:05-0500 Body temperature 97.39 [degF] Kristofer Calix MD Work Phone: [facility] 06-15-2023 14:05-0500 Body weight 108.1 kg Kristofer Calix MD Work Phone: [facility] 06-15-2023 14:05-0500 Diastolic blood pressure 75 mm[Hg] Kristofer Calix MD Work Phone: [facility] 06-15-2023 14:05-0500 Heart rate 87 /min Kristofer Calix MD Work Phone: [facility] 06-15-2023 14:05-0500 Respiratory rate 16 /min Kristofer Calix MD Work Phone: [facility] 06-15-2023 14:05-0500 SaO2% (BldA) [Mass fraction] 95 % Kristofer Calix MD Work Phone: [facility] 06-15-2023 14:05-0500 Systolic blood pressure 147 mm[Hg] Kristofer Calix MD Work Phone: [facility] 05-25-2023 11:11-0500 Blood Pressure Location Penelope KAPLE [facility] 05-25-2023 11:11-0500 Body temperature 97.7 [degF] Penelope KAPLE [facility] 05-25-2023 11:11-0500 Diastolic blood pressure 70 mm[Hg] Penelope KAPLE [facility] 05-25-2023 11:11-0500 Heart rate 76 /min Penelope KAPLE [facility] 05-25-2023 11:11-0500 Respiratory rate 18 /min Penelope KAPLE [facility] 05-25-2023 11:11-0500 SaO2% (BldA) [Mass fraction] 98 % Penelope KAPLE [facility] 05-25-2023 11:11-0500 Systolic blood pressure 118 mm[Hg] Penelope KAPLE [facility] 02-15-2023 09:41-0400 Blood Pressure Location Penelope KAPLE [facility] 02-15-2023 09:41-0400 Body temperature 98.42 [degF] Penelope KAPLE [facility] 02-15-2023 09:41-0400 Diastolic blood pressure 74 mm[Hg] Penelope KAPLE [facility] 02-15-2023 09:41-0400 Heart rate 80 /min Penelope KAPLE [facility] 02-15-2023 09:41-0400 Respiratory rate 18 /min Penelope KAPLE [facility] 02-15-2023 09:41-0400 SaO2% (BldA) [Mass fraction] 98 % Penelope KAPLE [facility] 02-15-2023 09:41-0400 Systolic blood pressure 122 mm[Hg] Penelope KAPLE [facility] 10-20-2022 09:44-0400 Blood Pressure Location Penelope KAPLE [facility] 10-20-2022 09:44-0400 Body temperature 98.24 [degF] Penelope KAPLE [facility] 10-20-2022 09:44-0400 Diastolic blood pressure 81 mm[Hg] Penelope KAPLE [facility] 10-20-2022 09:44-0400 Heart rate 88 /min Penelope KAPLE [facility] 10-20-2022 09:44-0400 Respiratory rate 18 /min Penelope KAPLE [facility] 10-20-2022 09:44-0400 SaO2% (BldA) [Mass fraction] 98 % Penelope PRAVEEN [facility] 10-20-2022 09:44-0400 Systolic blood pressure 130 mm[Hg] Penelope PRAVEEN [facility] 07-27-2022 13:18-0400 Body height 167.7 cm Kristofer Calix MD Work Phone: [facility] 07-27-2022 13:18-0400 Body temperature 97.5 [degF] Kristofer Calix MD Work Phone: [facility] 07-27-2022 13:18-0400 Body weight 107.78 kg Kristofer Calix MD Work Phone: [facility] 07-27-2022 13:18-0400 Diastolic blood pressure 79 mm[Hg] Kristofer Calix MD Work Phone: [facility] 07-27-2022 13:18-0400 Heart rate 76 /min Kristofer Calix MD Work Phone: [facility] 07-27-2022 13:18-0400 Respiratory rate 16 /min Kristofer Calix MD Work Phone: [facility] 07-27-2022 13:18-0400 SaO2% (BldA) [Mass fraction] 97 % Kristofer Calix MD Work Phone: [facility] 07-27-2022 13:18-0400 Systolic blood pressure 136 mm[Hg] Kristofer Calix MD Work Phone: [facility] 04-20-2022 13:45-0500 Body temperature 98.71 [degF] Chair Stew Work Phone: [facility] 04-20-2022 13:45-0500 Diastolic blood pressure 66 mm[Hg] Chair Stew Work Phone: [facility] 04-20-2022 13:45-0500 Heart rate 85 /min Chair Stew Work Phone: [facility] 04-20-2022 13:45-0500 SaO2% (BldA) [Mass fraction] 97 % Chair Bedford Work Phone: [facility] 04-20-2022 13:45-0500 Systolic blood pressure 120 mm[Hg] Chair Bedford Work Phone: [facility] 04-05-2022 16:27-0500 Diastolic blood pressure 65 mm[Hg] Chair Bedford Work Phone: [facility] 04-05-2022 16:27-0500 Heart rate 84 /min Chair Bedford Work Phone: [facility] 04-05-2022 16:27-0500 Respiratory rate 18 /min Chair Stew Work Phone: [facility] 04-05-2022 16:27-0500 SaO2% (BldA) [Mass fraction] 96 % Chair Stew Work Phone: [facility] 04-05-2022 16:27-0500 Systolic blood pressure 119 mm[Hg] Chair Bedford Work Phone: [facility] 03-27-2022 14:20-0500 Body height 167.7 cm Kristofer Calix MD Work Phone: [facility] 03-27-2022 14:20-0500 Body temperature 97.39 [degF] Kristofer Calix MD Work Phone: [facility] 03-27-2022 14:20-0500 Body weight 106.23 kg Kristofer Calix MD Work Phone: [facility] 03-27-2022 14:20-0500 Diastolic blood pressure 59 mm[Hg] Kristofer Calix MD Work Phone: [facility] 03-27-2022 14:20-0500 Heart rate 100 /min Kristofer Calix MD Work Phone: [facility] 03-27-2022 14:20-0500 Respiratory rate 16 /min Kristofer Calix MD Work Phone: [facility] 03-27-2022 14:20-0500 SaO2% (BldA) [Mass fraction] 97 % Kristofer Calix MD Work Phone: [facility] 03-27-2022 14:20-0500 Systolic blood pressure 125 mm[Hg] Kristofer Calix MD Work Phone: [facility] 01-30-2022 11:46-0400 Body height 167.7 cm Kristofer Calix MD Work Phone: [facility] 01-30-2022 11:46-0400 Body temperature 97.2 [degF] Kristofer Calix MD Work Phone: [facility] 01-30-2022 11:46-0400 Body weight 104.42 kg Kristofer Calix MD Work Phone: [facility] 01-30-2022 11:46-0400 Diastolic blood pressure 61 mm[Hg] Kristofer Calix MD Work Phone: [facility] 01-30-2022 11:46-0400 Heart rate 88 /min Kristofer Calix MD Work Phone: [facility] 01-30-2022 11:46-0400 Respiratory rate 16 /min Kristofer Calix MD Work Phone: [facility] 01-30-2022 11:46-0400 SaO2% (BldA) [Mass fraction] 99 % Kristofer Calix MD Work Phone: [facility] 01-30-2022 11:46-0400 Systolic blood pressure 122 mm[Hg] Kristofer Calix MD Work Phone: [facility] 08-19-2021 10:46-0400 Blood Pressure Location PERNELL LONGORIA [facility] 08-19-2021 10:46-0400 Diastolic blood pressure 78 mm[Hg] PERNELL SIDELL [facility] 08-19-2021 10:46-0400 Heart rate 96 /min PERNELL SIDELL [facility] 08-19-2021 10:46-0400 SaO2% (BldA) [Mass fraction] 99 % PERNELL SIDELL [facility] 08-19-2021 10:46-0400 Systolic blood pressure 124 mm[Hg] PERNELL SIDELL [facility] Encounters Encounter Date Encounter Type Care Provider Facility Start: 12-12-2024 End: 12-12-2024 Telephone encounter Annita Kendall Work Phone: [facility] Start: 12-11-2024 End: 12-11-2024 Bamboo flowsheet Wilton Montez DO Work Phone: [facility] Start: 12-11-2024 End: 12-11-2024 Bamboo flowsheet Wilton Montez DO Work Phone: [facility] Start: 12-11-2024 End: 12-11-2024 Clinisync Result Encounter Wilton Montez DO Work Phone: [facility] External Department Unsolicited Start: 12-11-2024 End: 12-11-2024 ambulatory WILTON MONTEZ Not Available Start: 12-11-2024 End: 12-11-2024 Office outpatient visit 15 minutes Wilton Montez DO Work Phone: [facility] Comment on above: 19 weeks gestation o f ([facility]); Second trimester ([facility]); Thyroid disease ; Multigravida of advanced maternal age in second trimester ([facility]); Gestational diabetes mellitus (GDM), antepartum, gestational diabetes method of control unspecified ([facility]) Start: 12-03-2024 End: 12-03-2024 ambulatory ALISA TORI [facility] Start: 12-03-2024 End: 12-03-2024 Office outpatient visit 25 minutes Alisa Tori 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 Work Phone: [facility] Comment on above: Insulin controlled g estational diabetes mellitus (GDM) in second trimester (Primary Dx) Start: 12-03-2024 End: 12-03-2024 Telephone encounter Anni Abreu CMA [facility] Start: 11-20-2024 End: 11-20-2024 Bamboo flowsheet Wilton Montez DO Work Phone: [facility] Start: 11-20-2024 End: 11-20-2024 Bamboo flowsheet Wilton Montez DO Work Phone: [facility] Start: 11-20-2024 End: 11-20-2024 ambulatory WILTON MONTEZ Not Available Start: 11-20-2024 End: 11-20-2024 Office outpatient visit 15 minutes Wilton Montez DO Work Phone: [facility] Comment on above: Second trimester pre gnancy ([facility]); 16 weeks gestation of ([facility]); Screening, , for anatomic survey ([facility]); Vaginal discharge; Sinus headache Start: 11-19-2024 End: 11-19-2024 ambulatory Lorena Enciso RN Work Phone: [facility] Comment on above: Gestational diabetes mellitus (GDM), antepartum, gestational diabetes method of control unspecified (Primary Dx) Start: 11-04-2024 End: 11-04-2024 Chart abstracting Wilfrid Medina MD Work Phone: [facility] Start: 10-30-2024 End: 10-30-2024 Bamboo flowsheet Wilton Montez DO Work Phone: [facility] Start: 10-30-2024 End: 10-30-2024 Bamboo flowsheet Wilton Montez DO Work Phone: [facility] Start: 10-30-2024 End: 10-30-2024 Office outpatient visit 15 minutes Wilton Montez DO Work Phone: [facility] Comment on above: Second trimester pre gnancy ([facility]); 13 weeks gestation of ([facility]); Thyroid disease ; Multigravida of advanced maternal age in second trimester ([facility]); Gestational diabetes mellitus (GDM), antepartum, gestational diabetes method of control unspecified ([facility]); Elevated glucose tolerance test Start: 10-30-2024 End: 10-30-2024 ambulatory WILTON MONTEZ Not Available Start: 10-29-2024 End: 10-29-2024 Refill Emelyn Paz APRN.CNP Work Phone: Hematology/Oncology Comment on above: Refill Request Start: 10-28-2024 End: 10-28-2024 Patient encounter procedure Katherine Negrete APRN.CNP Work Phone: Hematology/Oncology Start: 10-28-2024 End: 10-28-2024 ambulatory Katherine Negrete APRN.CNP Work Phone: Hematology/Oncology Comment on above: Primary hypercoagula ble state (HCC) (Primary Dx); CVA, old, speech/language deficit; Cerebral hyponatremia; Personal history of TIA (transient ischemic attack) Start: 10-28-2024 End: 11-05-2024 Telephone encounter Katherine Negrete APRN.OTR Work Phone: [facility] Comment on above: Results Start: 10-24-2024 End: 10-24-2024 Telephone encounter Katherine Negrete APRN.CNP Work Phone: Hematology/Oncology Comment on above: Lab Orders Start: 10-20-2024 End: 2024 Refill Kristofer Calix MD Work Phone: Hematology/Oncology Comment on above: Refill Request Start: 10-13-2024 End: 10-13-2024 Orders Only Margo Khan RN [facility] Comment on above: Gestational diabetes mellitus (GDM), [...] Department Unsolicited Start: 09-09-2024 End: 09-09-2024 ambulatory Penelope CASAS Facility:[facility] Start: 09-09-2024 End: 09-09-2024 Patient encounter procedure Penelope CASAS [facility] Start: 09-07-2024 End: 09-07-2024 ambulatory Romulo Chiu Facility:[facility] Start: 09-02-2024 End: 09-03-2024 Telephone encounter Rachael Johnson RN Hematology/Oncology Comment on above: Patient Update Start: 08-26-2024 End: 08-26-2024 Telephone encounter Kristofer Calix MD Work Phone: Hematology/Oncology Comment on above: Lab Orders Start: 08-23-2024 End: 08-23-2024 ambulatory Wilton R MONTEZ [facility] Start: 08-23-2024 End: 08-23-2024 Patient encounter procedure Wilton R MONTEZ [facility] Start: 07-25-2024 End: 07-31-2024 Refill Kristofer Calix MD Work Phone: Hematology/Oncology Comment on [...] Start: 07-09-2024 End: 07-09-2024 ambulatory Farhat Blue [facility] Start: 07-09-2024 End: 07-09-2024 Patient encounter procedure Inez Wakefield [facility] Start: 07-08-2024 End: 07-26-2024 Pre-admission assessment Inez Wakefield [facility] Start: 07-07-2024 End: 07-07-2024 ambulatory Penelope CASAS Facility:[facility] Start: 06-30-2024 End: 06-30-2024 ambulatory Penelope CASAS Facility:[facility] Start: 06-30-2024 End: 06-30-2024 Patient encounter procedure Penelope CASAS [facility] Start: 06-23-2024 End: 06-23-2024 [...] Start: 06-19-2024 End: 06-19-2024 ambulatory JESSICA BACA Facility:[facility] Start: 06-19-2024 End: 06-19-2024 Patient encounter procedure JESSICA BACA [facility] Start: 06-12-2024 End: 06-12-2024 ambulatory Wilton R MONTEZ [facility] Start: 06-12-2024 End: 06-12-2024 Patient encounter procedure Wilton R MONTEZ [facility] Start: 06-09-2024 End: 06-09-2024 ambulatory Penelope CASAS Facility:[facility] Start: 06-09-2024 End: 06-09-2024 Patient encounter procedure Wilton R MONTEZ [facility] Start: 06-06-2024 End: 06-06-2024 ambulatory ABI LOZANO Facility[facility] Start: 06-02-2024 End: 06-02-2024 ambulatory WILTON PATRICKO Not Available Start: 06-02-2024 End: 06-02-2024 Office outpatient visit 15 minutes Wilton Montez DO Work Phone: [facility] Comment on above: Follow-up visit afte r miscarriage; Abnormal TSH; History of thyroid disease Start: 05-28-2024 End: 05-28-2024 Telephone encounter Kristofer Calix MD Work Phone: [facility] Start: 05-28-2024 End: 05-28-2024 Office outpatient visit 25 minutes Kristofer Calix MD Work Phone: Hematology/Oncology Comment on above: Primary hypercoagula ble state (HCC) (Primary Dx); CVA, old, speech/language deficit; Iron deficiency anemia secondary to blood loss (chronic); Vitamin D deficiency; Antiphospholipid antibody syndrome (HCC) Start: 05-28-2024 End: 05-28-2024 ambulatory KRISTOFER CALIX Facility:[facility] Start: 05-16-2024 ambulatory Penelope CASAS Facility: [facility] Start: 05-14-2024 End: 05-14-2024 Telephone encounter Rachael Johnson RN Hematology/Oncology Comment on above: Patient Update Start: 05-10-2024 End: 05-10-2024 Clinisync Result Encounter Wilton Montez DO Work Phone: [facility] External Department Unsolicited Start: 05-10-2024 End: 05-10-2024 Clinisync Result Encounter Wilton Montez DO Work Phone: [facility] External Department Unsolicited Start: 05-10-2024 End: 05-10-2024 ambulatory Wilton Montez [facility] Work Phone: Start: 05-10-2024 End: 05-10-2024 Departed Referred Wilton Montez DO Work Phone: [facility] Start: 05-06-2024 End: 05-06-2024 ambulatory WILTON [...] miscarriage, ultrasound Start: 04-28-2024 End: 04-28-2024 Refill Kristofer Calix MD Work Phone: Hematology/Oncology Comment on [...] 03-01-2024 End: 03-01-2024 ambulatory Wilton R MONTEZ [facility] Start: 03-01-2024 End: 03-01-2024 Patient encounter procedure Wilton R MONTEZ [facility] Start: 02-27-2024 End: 12-08-2024 ambulatory Wilton R MONTEZ [facility] Start: 02-27-2024 End: 02-28-2024 Telephone encounter Rachael Johnson RN Hematology/Oncology Comment on above: Patient Question Start: 02-25-2024 End: 02-25-2024 ambulatory Wilton HERRMANN Facility[facility] Start: 02-25-2024 End: 02-25-2024 Patient encounter procedure Wilton HERRMANN [facility] Start: 02-23-2024 End: 02-23-2024 ambulatory Penelope CASAS Facility:[facility] Start: 02-23-2024 End: 02-23-2024 Patient encounter procedure Wilton HERRMANN [facility] Start: 02-05-2024 End: 02-05-2024 ambulatory Penelope CASAS Facility:[facility] Start: 02-05-2024 End: 02-05-2024 Patient encounter procedure Penelope CASAS [facility] Start: 02-05-2024 End: 02-05-2024 Well adult monitoring check done Penelope CASAS [facility] Start: 02-02-2024 End: 02-02-2024 ambulatory Anni Gudimella Facility:[facility] Start: 02-02-2024 End: 02-02-2024 Patient encounter procedure Anni Gudimella [facility] Start: 01-29-2024 ambulatory Penelope CASAS Facility: [facility] Start: 01-24-2024 End: 01-25-2024 Refill Kristofer Calix MD Work Phone: Hematology/Oncology Comment on above: Refill Request Start: 01-02-2024 End: 01-07-2024 Telephone encounter [facility] Comment on [facility]: Results Start: 01-02-2024 End: 01-02-2024 Office outpatient visit 15 minutes Kristofer Calix MD Work Phone: Hematology/Oncology Comment on above: 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); Vitamin D deficiency; Malaise and fatigue Start: 01-02-2024 End: 01-02-2024 ambulatory KRISTOFER CALIX Facility:[facility] Start: 12-17-2023 End: 12-17-2023 Telephone encounter Rachael Johnson RN Hematology/Oncology Start: 12-06-2023 End: 12-06-2023 ambulatory Monica Saba [facility] Start: 12-06-2023 End: 12-06-2023 Patient encounter procedure Monica Saba [facility] Start: 12-03-2023 ambulatory Penelope CASAS Facility: [facility] Start: 11-29-2023 End: 11-29-2023 ambulatory Kristofer Calix MD Work Phone: Hematology/Oncology Comment on above: Iron infusion side e ffects? Refill Request Iron deficiency anem ia of (Primary Dx); Iron deficiency anemia secondary to blood loss (chronic) Start: 11-22-2023 End: 11-23-2023 ambulatory Chair 12 Stew Work Phone: Hematology/Oncology Comment on above: Iron deficiency anem ia of (Primary Dx); Iron deficiency anemia secondary to blood loss (chronic) Start: 11-15-2023 Telephone encounter Financial Navigator Delgado Work Phone: Hematology/Oncology Start: 11-15-2023 End: 11-16-2023 ambulatory Chair 12 Stew Work Phone: Hematology/Oncology Comment on above: Iron deficiency anem ia of (Primary Dx); Iron deficiency anemia secondary to blood loss (chronic) Start: 11-09-2023 End: 11-09-2023 Patient encounter procedure Monica Saba [facility] Start: 11-09-2023 End: 11-09-2023 Social Work Tamiko Krueger DICTATING MACHINE MECHANIC Hematology/Oncology Start: 11-05-2023 Telephone encounter Kristofer garcia MD Work Phone: [facility] Comment on above: Appointment Start: 10-23-2023 End: 10-23-2023 ambulatory Lourdes Garber Facility:[facility] Start: 10-23-2023 End: 10-23-2023 Patient encounter procedure Lourdes Garber [facility] Start: 09-28-2023 End: 09-28-2023 Emergency department patient visit Benny Uribe [facility] Start: 09-28-2023 End: 09-28-2023 ambulatory PA-C JANET DUNHAM Facility:[facility] Start: 09-28-2023 End: 09-28-2023 Patient encounter procedure JANET DUNHAM [facility] Start: 09-27-2023 Telephone encounter [facility]arcia MD [facility] Comment on above: Appointment Reschedu led Start: 09-21-2023 End: 09-26-2023 ambulatory Kristofer Calix MD Work Phone: Hematology/Oncology Comment on above: 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) Start: 09-21-2023 End: 09-26-2023 Telemedicine consultation with patient Kristofer Calix MD Work Phone: Hematology/Oncology Start: 08-03-2023 End: 08-03-2023 ambulatory Penelope CASAS Facility:[facility] Start: 08-03-2023 End: 08-03-2023 Patient encounter procedure Penelope CASAS [facility] Start: 06-29-2023 End: 06-29-2023 ambulatory Penelope CASAS Facility:[facility] Start: 06-29-2023 End: 06-29-2023 Patient encounter procedure Penelope CASAS [facility] Start: 06-19-2023 ambulatory Rachael Johnson RN Hemat ology/Oncology Comment on above: Lab results/recommen dations Start: 06-19-2023 E-mail encounter fro m caregiver Rachael [place] Start: 06-15-2023 End: 06-15-2023 Office outpatient visit 25 minutes Kristofer Calix MD Work Phone: Hematology/Oncology Comment on above: Vitamin D deficiency (Primary Dx); Hypercalcemia; Iron deficiency anemia secondary to blood loss (chronic) Start: 06-15-2023 Telephone encounter Kristofer garcia MD [facility] Comment on above: Results Start: 06-11-2023 Telephone encounter Kristofer garcia MD Work Phone: Hematology/Oncology Comment on above: Lab Orders Start: 06-01-2023 Telephone encounter Kristofer garcia MD Work Phone: [facility] Comment on above: Future Appointment Start: 05-31-2023 End: 06-01-2023 ambulatory Kristofer Calix MD Work Phone: Hematology/Oncology Comment on above: Primary hypercoagula ble state (HCC) (Primary Dx); CVA, old, speech/language deficit; Hypercalcemia; Vitamin D deficiency; Iron deficiency anemia secondary to blood loss (chronic); Malaise and fatigue Start: 05-31-2023 End: 06-01-2023 Telemedicine consultation with patient Kristofer Calix MD Work Phone: [facility] Start: 05-25-2023 End: 05-25-2023 ambulatory Penelope Cecily CASAS Facility:[facility] Start: 05-25-2023 End: 05-25-2023 Patient encounter procedure Penelope Cecily STEPHANILE [facility] Start: 05-01-2023 End: 05-01-2023 ambulatory Penelope Cecily PRAVEEN [facility] Start: 04-27-2023 End: 04-27-2023 Lab Drop off Penelope CASAS [facility] Start: 04-27-2023 End: 04-27-2023 ambulatory Penelope Cecily CASAS [facility] Start: 04-25-2023 End: 04-25-2023 ambulatory Taylor Hong Facility:[facility] Start: 03-19-2023 End: 03-19-2023 ambulatory Kristofer Calix MD Work Phone: Hematology/Oncology Comment on above: Primary hypercoagula ble state (HCC) (Primary Dx); Iron deficiency anemia secondary to blood loss (chronic); Vitamin D deficiency; CVA, old, speech/language deficit; Antiphospholipid antibody syndrome (HCC) Start: 03-19-2023 End: 03-19-2023 Telemedicine consultation with patient Kristofer Calix MD Work Phone: [facility] Start: 02-15-2023 End: 02-15-2023 ambulatory Penelope Cecily STEPHANIANNA Facility[facility] Start: 02-15-2023 End: 02-15-2023 Patient encounter procedure Penelope Cecily STEPHANIANNA [facility] Start: 02-13-2023 ambulatory Penelope A PRAVEEN Facility: [facility] Start: 12-26-2022 End: 12-26-2022 ambulatory Lourdes Garber Facility:[facility] Start: 12-26-2022 End: 12-26-2022 Patient encounter procedure Lourdes Garber [facility] Start: 12-22-2022 End: 12-22-2022 ambulatory Kristofer Calix MD Work Phone: Hematology/Oncology Comment on above: Primary hypercoagula ble state (HCC) (Primary Dx); Iron deficiency anemia of ; Iron deficiency anemia secondary to blood loss (chronic); Vitamin D deficiency Start: 12-22-2022 End: 12-22-2022 Telemedicine consultation with patient Kristofer Calix MD Work Phone: [facility] Start: 12-11-2022 Telephone encounter Kristofer garcia MD Work Phone: [facility] Comment on above: Appointment Start: 10-20-2022 End: 10-20-2022 Patient encounter procedure Penelope CASAS [facility] Start: 09-28-2022 End: 09-28-2022 ambulatory Kristofer Calix MD Work Phone: Hematology/Oncology Comment on above: Primary hypercoagula ble state (HCC); CVA, old, speech/language deficit; Cerebral hyponatremia Start: 09-28-2022 End: 09-28-2022 Telemedicine consultation with patient Kristofer Calix MD Work Phone: [facility] Start: 09-26-2022 End: 09-26-2022 Patient encounter procedure Kristofer Calix [facility] Start: 09-19-2022 Telephone encounter Valeri Yan RN Hematology/Oncology Comment on above: Orders Start: 09-05-2022 End: 09-05-2022 Patient encounter procedure Wilton HERRMANN [facility] Start: 08-07-2022 End: 08-07-2022 Patient encounter procedure Wilton HERRMANN [facility] Start: 07-27-2022 End: 07-27-2022 Office outpatient visit 25 minutes Kristofer Calix MD Work Phone: Hematology/Oncology Comment on above: Primary hypercoagula ble state (HCC) (Primary Dx); Iron deficiency anemia secondary to blood loss (chronic); CVA, old, speech/language deficit Start: 07-03-2022 Refill Kristofer palmer MD Work Phone: Hematology/Oncology Comment on [...] DR WILTON HERRMANN Facility:[facility] Start: 04-06-2022 Refill Kristofer palmer MD Work Phone: Hematology/Oncology Comment on [...] HERRMANN Facility:[facility] Start: 03-27-2022 End: 03-27-2022 ambulatory Kristofer Calix MD Work Phone: Hematology/Oncology Comment on above: 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); Iron deficiency anemia of Start: 03-27-2022 End: 03-27-2022 Patient encounter procedure Kristofer Calix MD Work Phone: [facility] Start: 03-27-2022 Telephone encounter Kristofer garcia MD Work Phone: [facility] Comment on above: Results Start: 03-24-2022 End: 03-24-[address] WILTON HERRMANN Facility:[facility] Start: 03-16-2022 End: 03-17-[address] WILTON HERRMANN Facility:[facility] Start: 02-24-2022 End: 02-27-[address] WILTON HERRMANN Facility:[facility] Start: 02-14-2022 End: 02-14-[address] WILTON HERRMANN Facility:[facility] Start: 01-30-2022 End: 01-30-2022 ambulatory Kristofer Calix MD Work Phone: Hematology/Oncology Comment on above: Primary hypercoagula ble state (HCC) (Primary Dx); CVA, old, speech/language deficit; Antiphospholipid antibody syndrome (HCC); Anemia, unspecified type Start: 01-30-2022 End: 01-30-2022 Patient encounter procedure Kristofer Calix MD Work Phone: [facility] Start: 01-24-2022 End: 01-25-[address] WILTON HERRMANN Facility:[facility] Start: 01-24-2022 End: 01-25-[address] WILTON HERRMANN Facility:[facility] Start: 01-07-2022 End: 01-08-[address] WILTON HERRMANN Facility:[facility] Start: 12-30-2021 Refill Tonja Wallace RN Work Phone: Hematology/Oncology Comment on above: Refill Request Start: 12-28-2021 End: 12-29-[address] WILTON HERRMANN Facility:[facility] Start: 11-21-2021 End: 11-22-2021 ambulatory PENELOPE CASAS [facility] Start: 11-21-2021 End: 11-21-2021 Subsequent hospital visit by physician Penelope Casas Work Phone: [facility] Start: 11-14-2021 End: 02-13-2022 Patient encounter procedure SELF REFERRAL [facility] Start: 11-04-[address] WILTON HERRMANN [...] Start: 08-31-2021 End: 08-31-2021 Patient encounter procedure Penelope CASAS [facility] Start: 08-29-2021 End: 08-30-[address] WILTON HERRMANN Facility:[facility] Start: 08-26-2021 End: 08-27-[address] WILTON HERRMANN Facility:[facility] Start: 08-24-2021 End: 08-25-[address] WILTON HERRMANN Facility:[facility] Start: 08-22-2021 Telephone encounter Meme Easton RN Hematology/Oncology Comment on above: Patient Question Start: 08-19-2021 End: 08-19-2021 Patient encounter procedure PERNELL LONGORIA [facility] Start: 08-19-2021 End: 08-19-2021 Lab Drop off PERNELL LONGORIA [facility] Start: 08-19-2021 End: 08-19-2021 Patient encounter procedure PERNELL LONGORIA [facility] [place] Start: 08-01-2021 Telephone encounter Kristofer garcia MD [facility] Phone[facility] Comment on above: Future Appointment Start: 08-01-2021 End: 08-01-2021 Nursing evaluation of patient and report Ma Nurse Delgado Golden Work Phone: Hematology/Oncology Comment on above: Infective urethritis (Primary Dx) Start: 06-03-2018 Patient encounter procedure Haseeb Morel Facility:[facility] Start: 11-08-2017 Patient encounter procedure ERIKA LONDON Facility:[id number] Start: 05-25-2017 End: 05-26-2017 Ambulatory CROW R [facility] Procedures Date Procedure Procedure Detail Performing Clinician Start: 12-11-2024 ALL THYROID STIM HORMONE Wilton Montez DO Work Phone: Start: 12-11-2024 Urnls dip stick/tablet rgnt non-auto [...] micrscp Wilton Herrmann DO Work Phone: Start: 04-12-2024 BOX TEST Wilton Herrmann DO Work Phone: Start: 04-12-2024 [facility] DRUG SCREEN RAPID (URINE) Wilton Herrmann DO Work Phone: Start: 04-04-2024 End: 04-04-2024 [...] Work Phone: Start: 11-21-2021 MISCELLANEOUS TESTING Tod Mullins MD Work Phone: Start: 02-02-2020 Adult depression screening assessment Nevin Chantel Work Phone: Start: 05-25-2017 CSF CULTURE [facility] Start: 05-25-2017 APTT [facility] Start: 05-25-2017 CSF CELL COUNT WITH DIFFERENTIAL [facility] Start: 05-25-2017 JENNIFER SIMPSON VIRUS PCR [facility] Start: 05-25-2017 GLUCOSE, CSF [facility] Start: 05-25-2017 MYELIN BASIC PROTEIN, CSF [facility] Start: 05-25-2017 OLIGOCLONAL BANDING [facility] Start: 05-25-2017 PROTEIN, CSF [facility] Start: 05-25-2017 PROTIME-INR [facility] Start: 05-25-2017 Spinal puncture lumbar diagnostic [facility] Start: 05-25-2017 ANTIPHOSPHOLIPID ANTIBODY PANEL [facility] Start: 05-25-2017 CARDIOLIPIN AB IGG, IGM, IGA [facility] Start: 05-25-2017 CK [facility] Start: 05-25-2017 HOMOCYSTEINE, SERUM [facility] Start: 05-25-2017 MISC ARUP 1 [facility] Start: 05-25-2017 ASSESS [facility] Start: 05-25-2017 BEDREST [facility] Start: 06-14-2013 Biopsy of breast PERNELL LONGORIA Start: 04-30-2006 Extraction of wisdom tooth PERNELL SIDEMICHELLE endoscopy for ovaria n cysts to drain PERNELL SIDEMICHELLE Vaccine refused by patient COVID -19 vaccine dose declined( Confirmed ) PERNELL SIDEMICHELLE Plan of Treatment Date Care Activity Detail Author Start: 2060 RSV Vaccine (1 - 1-d ose 75+ series) RSV Vaccine (1 - 1-dose 75+ series) [facility] Start: 11-19-2025 Adult BMI Screening Adult BMI Screen [facility] Start: 02-14-2025 Screening for malign ant neoplasm of cervix [facility] Start: 01-05-2025 End: 01-05-2025 Patient encounter procedure 01/05/2025 2:40 PM EDT Routine SHILOH COLVIN [address] [phone] Wilton Herrmann DO [address] [place] [address] [facility] [place] [facility] Start: 01-01-2025 End: 01-01-2025 Telemedicine consultation with patient 01/01/2025 2:30 PM EDT Telemedicine [facility] [place] [address] [facility] [address] [place] [address] Wilfrid Medina MD [address] [facility], [address] [place] [id number] [facility] [place] Start: 01-01-2025 End: 01-01-2025 Patient encounter procedure 01/01/2025 1:00 PM EDT Appointment [facility] [place] [address] [facility] [address] [place] [address] [facility] [place] Start: 12-29-2024 Influenza vaccination [facility] Start: 12-24-2024 End: 03-25-2025 CBC W Auto Differential panel - Blood COMPLETE BLOOD COUNT AND DIFFERENTIAL Lab Routine Primary hypercoagulable state (HCC) CVA, old, speech/language deficit Cerebral hyponatremia Personal history of TIA (transient ischemic attack) Expected: 12/24/2024, Expires: 03/25/2025 [facility] Work Phone: Comment on above: Expected: 12/24/2024 , Expires: 03/25/2025 Start: 12-24-2024 End: 03-25-2025 Cobalamin (Vitamin B12) [Mass/volume] in Serum or Plasma VITAMIN B12 Lab Routine Primary hypercoagulable state (HCC) CVA, old, speech/language deficit Cerebral hyponatremia Personal history of TIA (transient ischemic attack) Expected: 12/24/2024, Expires: 03/25/2025 [facility] Comment on above: Expected: 12/24/2024 , Expires: 03/25/2025 Start: 12-24-2024 End: 03-25-2025 Comprehensive metabolic 2000 panel - Serum or Plasma COMPREHENSIVE METABOLIC PANEL Lab Routine Primary hypercoagulable state (HCC) CVA, old, speech/language deficit Cerebral hyponatremia Personal history of TIA (transient ischemic attack) Expected: 12/24/2024, Expires: 03/25/2025 [facility] Comment on above: Expected: 12/24/2024 , Expires: 03/25/2025 Start: 12-24-2024 End: 03-25-2025 Ferritin [Mass/volume] in Serum or Plasma FERRITIN Lab Routine Primary hypercoagulable state (HCC) CVA, old, speech/language deficit Cerebral hyponatremia Personal history of TIA (transient ischemic attack) Expected: 12/24/2024, Expires: 03/25/2025 [facility] Comment on above: Expected: 12/24/2024 , Expires: 03/25/2025 Start: 12-24-2024 End: 03-25-2025 Iron and Iron binding capacity panel - Serum or Plasma IRON AND TIBC Lab Routine Primary hypercoagulable state (HCC) CVA, old, speech/language deficit Cerebral hyponatremia Personal history of TIA (transient ischemic attack) Expected: 12/24/2024, Expires: 03/25/2025 [facility] Comment on above: Expected: 12/24/2024 , Expires: 03/25/2025 Start: 12-22-2024 End: 12-22-2024 Follow-up encounter 12/22/2024 1:30 PM EDT Visit (SP) Office Hematology/Oncology [address] [place] [address] Katherine Negrete, GEAR TOOTH GRINDING MACHINE OPERATOR.ATHLETIC COACH [address] [place] [address] 8 week follow up lab Hematology/Oncology Comment on above: 8 week follow up lab Start: 12-22-2024 End: 12-22-2024 Patient encounter procedure 12/22/2024 1:15 PM EDT Office Visit [facility] [address] [place] [address] 8 week follow up lab [facility] Comment on above: 8 week follow up lab Start: 12-17-2024 End: 12-17-2024 Telemedicine consultation with patient 12/17/2024 1:30 PM EDT Telemedicine Maternal- Medicine at [facility] [address] [place] [phone] Alisa Saba, 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 [address] [place] [address] Maternal- Medicine at [facility] Start: 12-11-2024 End: 12-11-2024 Patient encounter procedure 12/11/2024 9:10 AM EDT Routine [facility] [address] [place] [address] Wilton Herrmann DO [address] [place] [address] [facility] [place] [facility] Start: 12-03-2024 End: 12-03-2024 Telemedicine consultation with patient 12/03/2024 2:00 PM EDT Telemedicine Maternal- Medicine at [facility] [address] [place] [place] [phone] Alisa Saba, 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 [address] [place] [place] [address] Maternal- Medicine at [facility] Start: 11-20-2024 End: 01-21-2025 Alpha fetoprotein, maternal Alpha fetoprotein, maternal Lab Routine Second trimester ([facility]) Expected: 11/20/2024 (Approximate), Expires: 01/21/2025 [facility] Comment on above: Expected: 11/20/2024 (Approximate), Expires: 01/21/2025 Start: 11-20-2024 End: 11-20-2024 Patient encounter procedure 11/20/2024 10:10 AM EDT Routine [facility] [address] [place] [phone] Wilton Herrmann DO [address] [place] [address] [facility] Start: 11-19-2024 End: 11-19-2024 ambulatory 11/19/2024 9:30 AM EDT Support Visit Maternal- Medicine at [facility] [address] [facility] [place] [phone] Lorena Enciso, RN [address] [facility] [place], [address] [place] [address], [place] [address] Stephanie Quiros, Cindy Uribe, RD [address], [address] [place] [address] Maternal- Medicine at [facility] Start: 11-12-2024 End: 10-13-2025 US MFM with or without consult US MFM with or without consult Imaging Routine Gestational diabetes mellitus (GDM), antepartum, gestational diabetes method of control unspecified Expected: 11/12/2024 (Approximate), Expires: 10/13/2025 [facility] Work Phone: Comment on above: Expected: 11/12/2024 (Approximate), Expires: 10/13/2025 Start: 10-30-2024 End: 10-30-2024 Patient encounter procedure 10/30/2024 10:40 AM EDT Routine [facility] [address] [place] [phone] Wilton Herrmann, [address] [place], [place] [id number] [facility] Start: 10-30-2024 End: 10-30-2024 Patient encounter procedure 10/30/2024 9:30 AM EDT Routine [facility] [address] [place] [phone] Wilton Herrmann, DO [address] [place] [address] Arrived [facility] Comment on above: Arrived Start: 10-28-2024 End: 10-28-2024 Follow-up encounter 10/28/2024 2:30 PM EDT Visit (SP) Office Hematology/Oncology [address] [place] [address] Katherine Negrete APRN.ATHLETIC COACH [address] [place] [address] 3 month follow up Hematology/Oncology Comment on above: 3 month follow up Start: 10-28-2024 End: 10-28-2024 Patient encounter procedure 10/28/2024 2:15 PM EDT Office Visit [facility] [address] [place] [address] labs - patient prefers to come same day [facility] Comment on above: labs - patient prefe rs to come same day Start: 10-27-2024 End: 10-27-2024 Patient encounter procedure 10/27/2024 9:20 AM EDT Office Visit [facility] [address] [place] [address] Wilton Herrmann, DO [address] [place] [address] [facility] Start: 10-20-2024 End: 10-20-2024 Professional / ancillary services management 10/20/2024 1:00 PM EDT Ancillary Procedure [facility] [address] [place] [address] [facility] Start: 10-10-2024 End: 10-10-2024 Follow-up encounter 10/10/2024 10:40 AM EDT Visit (SP) Office Hematology/Oncology [address] [place] [address] Kristofer Calix MD [address] [place] [address] 3 month follow up Hematology/Oncology Comment on above: 3 month follow up Start: 10-10-2024 End: 10-10-2024 Patient encounter procedure 10/10/2024 10:15 AM EDT Office Visit [facility] [address] [facility] [address] labs - patient prefers to come same day [facility] Comment on above: labs - patient prefe rs to come same day Start: 10-02-2024 End: 10-02-2025 ABO/Rh ABO/Rh Lab Routine Missed menses , unspecified gestational age Expected: 10/02/2024 (Approximate), Expires: 10/02/2025 [facility] Comment on above: Expected: 10/02/2024 (Approximate), Expires: 10/02/2025 Start: 10-02-2024 End: 10-02-2025 Blood type and Indirect antibody screen panel - Blood Type and screen Lab Routine Missed menses , unspecified gestational age Expected: 10/02/2024 (Approximate), Expires: 10/02/2025 [facility] Work Phone: Comment on above: Expected: 10/02/2024 (Approximate), Expires: 10/02/2025 Start: 10-02-2024 End: 10-02-2025 Drugs of abuse panel - Urine by Screen method Rapid drug screen, urine Lab Routine , unspecified gestational age Encounter for supervision of normal first in first trimester Expected: 10/02/2024 (Approximate), Expires: 10/02/2025 [facility] Comment on above: Expected: 10/02/2024 (Approximate), Expires: 10/02/2025 Start: 10-02-2024 End: 10-02-2024 ambulatory 10/02/2024 1:00 PM EDT Initial [facility] [address] [facility] [place] [address] [facility] Start: 10-02-2024 End: 10-02-2024 Professional / ancillary services management 10/02/2024 12:30 PM EDT Ancillary Procedure [facility] [address] [place] [address] [facility] Start: 08-27-2024 End: 08-27-2024 Follow-up encounter 08/27/2024 2:00 PM EDT Visit (SP) Office Hematology/Oncology [employer] [place] [address] Kristofer Calix MD [address] [place] [address] 3 month follow up Hematology/Oncology Comment on above: 3 month follow up Start: 08-27-2024 End: 08-27-2024 Patient encounter procedure 08/27/2024 1:45 PM EDT Office Visit [facility] [address] [place] [address] labs - patient prefers to come same day [facility] Comment on above: labs - patient prefe rs to come same day Start: 08-26-2024 End: 11-25-2024 25-hydroxyvitamin D3 [Mass/volume] in Serum or Plasma VITAMIN D 25 HYDROXY Lab Routine 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 Vitamin D deficiency Expected: 08/26/2024, Expires: 11/25/2024 [facility] Comment on above: Expected: 08/26/2024 , Expires: 11/25/2024 Start: 08-26-2024 End: 11-25-2024 CBC W Auto Differential panel - Blood COMPLETE BLOOD COUNT AND DIFFERENTIAL Lab Routine 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 Vitamin D deficiency Expected: 08/26/2024, Expires: 11/25/2024 [facility] Work Phone: Comment on above: Expected: 08/26/2024 , Expires: 11/25/2024 Start: 08-26-2024 End: 11-25-2024 Cobalamin (Vitamin B12) [Mass/volume] in Serum or Plasma VITAMIN B12 Lab Routine 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 Vitamin D deficiency Expected: 08/26/2024, Expires: 11/25/2024 [facility] Comment on above: Expected: 08/26/2024 , Expires: 11/25/2024 Start: 08-26-2024 End: 11-25-2024 Comprehensive metabolic 2000 panel - Serum or Plasma COMPREHENSIVE METABOLIC PANEL Lab Routine 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 Vitamin D deficiency Expected: 08/26/2024, Expires: 11/25/2024 [facility] Comment on above: Expected: 08/26/2024 , Expires: 11/25/2024 Start: 08-26-2024 End: 11-25-2024 Ferritin [Mass/volume] in Serum or Plasma FERRITIN Lab Routine 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 Vitamin D deficiency Expected: 08/26/2024, Expires: 11/25/2024 [facility] Comment on above: Expected: 08/26/2024 , Expires: 11/25/2024 Start: 08-26-2024 End: 11-25-2024 Iron and Iron binding capacity panel - Serum or Plasma IRON AND TIBC Lab Routine 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 Vitamin D deficiency Expected: 08/26/2024, Expires: 11/25/2024 [facility] Comment on above: Expected: 08/26/2024 , Expires: 11/25/2024 Start: 08-26-2024 End: 11-25-2024 Thyrotropin [Units/volume] in Serum or Plasma THYROID STIMULATING HORMONE Lab Routine 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 Vitamin D deficiency Expected: 08/26/2024, Expires: 11/25/2024 [facility] Comment on above: Expected: 08/26/2024 , Expires: 11/25/2024 Start: 07-24-2024 End: 07-24-2025 Progesterone Progesterone Lab Routine Irregular menstrual cycle Expected: 07/24/2024 (Approximate), Expires: 07/24/2025 [facility] Work Phone: Comment on above: Expected: 07/24/2024 (Approximate), Expires: 07/24/2025 Start: 07-03-2024 DTaP,Tdap and Td Vaccines (2 - Td or Tdap) DTaP,Tdap and Td Vaccines (2 - Td or Tdap) [facility] Start: 07-03-2024 DTaP/Tdap/Td vaccine (2 - Td or Tdap) DTaP/Tdap/Td vaccine (2 - Td or Tdap) [facility] Start: 07-03-2024 Urine microalbumin profile [facility] Start: 06-23-2024 End: 06-23-2025 US Pelvis US Pelvis w/ TV Imaging Routine Vaginal bleeding Vaginal discharge Pelvic pain in female Expected: 06/23/2024, Expires: 06/23/2025 [facility] Comment on above: Expected: 06/23/2024 , Expires: 06/23/2025 Start: 06-02-2024 End: 06-02-2024 Patient encounter procedure 06/02/2024 11:20 AM EST Office Visit [facility] [address] [place] [phone] Wilton Herrmann, DO [address] [place] [id number] [facility] Start: 05-21-2024 End: 05-21-2024 Follow-up encounter 05/21/2024 2:20 PM EST Visit (SP) Office Hematology/Oncology [address] [place] [address] Kristofer Calix MD [address] [place] [address] 3 month follow up with lab Hematology/Oncology Comment on above: 3 month follow up [facility] Start: 05-21-2024 End: 05-21-2024 Patient encounter procedure 05/21/2024 2:00 PM EST Office Visit [facility] [address] [place] [address] 3 month follow up with lab [facility] Comment on above: 3 month follow up [facility] Start: 05-06-2024 End: 05-06-2025 US for [facility] Work Phone: Comment on above: Expected: 05/06/2024 , Expires: 05/06/2025 Start: 05-06-2024 End: 05-06-2024 Patient encounter procedure 05/06/2024 1:50 PM EST Routine [facility] [address] [place] [id number] Wilton Herrmann, DO [address] [place] [address] [facility] Start: 04-09-2024 End: 04-09-2024 Follow-up encounter Hematology/Oncology Comment on above: 3 month follow up wi th lab Start: 04-09-2024 End: 04-09-2024 Patient encounter procedure [facility] Comment on above: 3 month follow up wi th lab Start: 04-04-2024 End: 04-04-2025 ABO/Rh ABO/Rh Lab Routine Missed menses , unspecified gestational age Expected: 04/04/2024 (Approximate), Expires: 04/04/2025 [facility] Comment on above: Expected: 04/04/2024 (Approximate), Expires: 04/04/2025 Start: 04-04-2024 End: 04-04-2025 Blood type and Indirect antibody screen panel - Blood Type and screen Lab Routine Missed menses , unspecified gestational age Expected: 04/04/2024 (Approximate), Expires: 04/04/2025 [facility] Work Phone: Comment on above: Expected: 04/04/2024 (Approximate), Expires: 04/04/2025 Start: 04-04-2024 End: 04-04-2025 Drugs of abuse panel - Urine by Screen method Rapid drug screen, urine Lab Routine , unspecified gestational age Encounter for supervision of normal first in first trimester Expected: 04/04/2024 (Approximate), Expires: 04/04/2025 [facility] Comment on above: Expected: 04/04/2024 (Approximate), Expires: 04/04/2025 Start: 04-04-2024 End: 04-04-2025 US Pelvis transvaginal US OB transvaginal Imaging Routine Missed menses Expected: 04/04/2024 (Approximate), Expires: 04/04/2025 [facility] Comment on above: Expected: 04/04/2024 (Approximate), Expires: 04/04/2025 Start: 04-02-2024 End: 07-02-2024 25-hydroxyvitamin D3 [Mass/volume] in Serum or Plasma VITAMIN D 25 HYDROXY Lab Routine Iron deficiency anemia secondary to blood loss (chronic) Vitamin D deficiency Malaise and fatigue Expected: 04/02/2024 (Approximate), Expires: 07/02/2024 [facility] Comment on above: Expected: 04/02/2024 (Approximate), Expires: 07/02/2024 Start: 04-02-2024 End: 01-01-2025 CBC W Auto Differential panel - Blood COMPLETE BLOOD COUNT AND DIFFERENTIAL Lab Routine Iron deficiency anemia secondary to blood loss (chronic) Vitamin D deficiency Malaise and fatigue Expected: 04/02/2024 (Approximate), Expires: 01/01/2025 [facility] Comment on above: Expected: 04/02/2024 (Approximate), Expires: 01/01/2025 Start: 04-02-2024 End: 01-01-2025 Cobalamin (Vitamin B12) [Mass/volume] in Serum or Plasma VITAMIN B12 Lab Routine Iron deficiency anemia secondary to blood loss (chronic) Vitamin D deficiency Malaise and fatigue Expected: 04/02/2024 (Approximate), Expires: 01/01/2025 [facility] Comment on above: Expected: 04/02/2024 (Approximate), Expires: 01/01/2025 Start: 04-02-2024 End: 01-01-2025 Comprehensive metabolic 2000 panel - Serum or Plasma COMPREHENSIVE METABOLIC PANEL Lab Routine Iron deficiency anemia secondary to blood loss (chronic) Vitamin D deficiency Malaise and fatigue Expected: 04/02/2024 (Approximate), Expires: 01/01/2025 [facility] Comment on above: Expected: 04/02/2024 (Approximate), Expires: 01/01/2025 Start: 04-02-2024 End: 01-01-2025 Ferritin [Mass/volume] in Serum or Plasma FERRITIN Lab Routine Iron deficiency anemia secondary to blood loss (chronic) Vitamin D deficiency Malaise and fatigue Expected: 04/02/2024 (Approximate), Expires: 01/01/2025 [facility] Comment on above: Expected: 04/02/2024 (Approximate), Expires: 01/01/2025 Start: 04-02-2024 End: 01-01-2025 Folate [Mass/volume] in Serum or Plasma FOLATE, SERUM Lab Routine Iron deficiency anemia secondary to blood loss (chronic) Vitamin D deficiency Malaise and fatigue Expected: 04/02/2024 (Approximate), Expires: 01/01/2025 [facility] Comment on above: Expected: 04/02/2024 (Approximate), Expires: 01/01/2025 Start: 04-02-2024 End: 01-01-2025 Iron and Iron binding capacity panel - Serum or Plasma IRON AND TIBC Lab Routine Iron deficiency anemia secondary to blood loss (chronic) Vitamin D deficiency Malaise and fatigue Expected: 04/02/2024 (Approximate), Expires: 01/01/2025 [facility] Comment on above: Expected: 04/02/2024 (Approximate), Expires: 01/01/2025 Start: 04-02-2024 End: 07-02-2024 Thyrotropin [Units/volume] in Serum or Plasma THYROID STIMULATING HORMONE Lab Routine Iron deficiency anemia secondary to blood loss (chronic) Vitamin D deficiency Malaise and fatigue Expected: 04/02/2024 (Approximate), Expires: 07/02/2024 [facility] Work Phone: Comment on above: Expected: 04/02/2024 (Approximate), Expires: 07/02/2024 Start: 01-05-2024 End: 01-01-2025 CBC W Auto Differential panel - Blood COMPLETE BLOOD COUNT AND DIFFERENTIAL Lab Routine Iron deficiency anemia secondary to blood loss (chronic) Vitamin D deficiency Malaise and fatigue Expected: 01/05/2024 (Approximate), Expires: 01/01/2025 [facility] Comment on above: Expected: 01/05/2024 (Approximate), Expires: 01/01/2025 Start: 01-05-2024 End: 01-01-2025 Comprehensive metabolic 2000 panel - Serum or Plasma COMPREHENSIVE METABOLIC PANEL Lab Routine Iron deficiency anemia secondary to blood loss (chronic) Vitamin D deficiency Malaise and fatigue Expected: 01/05/2024 (Approximate), Expires: 01/01/2025 [facility] Comment on above: Expected: 01/05/2024 (Approximate), Expires: 01/01/2025 Start: 01-02-2024 End: 01-02-2024 Follow-up encounter 01/02/2024 1:45 PM EDT Visit (SP) Office Hematology/Oncology [address] [place] [address] [place] [address] Kristofer Calix MD [address] [place] [address] 8 WEEK FOLLOW UP Hematology/Oncology Comment on above: 8 WEEK FOLLOW UP Start: 01-02-2024 End: 01-02-2024 Patient encounter procedure 01/02/2024 1:30 PM EDT Office Visit [facility] [address] [place] [address] 8 WEEK FOLLOW UP [facility] Comment on above: 8 WEEK FOLLOW UP Start: 12-30-2023 Covid-19 Vaccine ( season) Covid-19 Vaccine () [facility] Start: 12-30-2023 Covid-19 Vaccine () Covid-19 Vaccine () [facility] Start: 12-30-2023 Influenza vaccination [facility] Start: 11-29-2023 End: 11-29-2023 ambulatory 11/29/2023 1:30 PM EDT Infusion Center Hematology/Oncology [address] [place] [address] [facility] Hematology/Oncology Comment on above: [facility] [address] Start: 11-22-2023 End: 11-22-2023 ambulatory 11/22/2023 1:30 PM EDT Infusion Center Hematology/Oncology [address] [place] [address] [place] [address] [facility] [address] Hematology/Oncology Comment on above: [facility] [address] Start: 11-15-2023 End: 11-15-2023 ambulatory 11/15/2023 1:30 PM EDT Infusion Center Hematology/Oncology [address] [place] [address] [place] [address] [facility] [address] Hematology/Oncology Comment on above: [facility] [address] Start: 09-13-2023 End: 12-13-2023 25-hydroxyvitamin D3 [Mass/volume] in Serum or Plasma VITAMIN D 25 HYDROXY Lab Routine Vitamin D deficiency 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) Expected: 09/13/2023 (Approximate), Expires: 12/13/2023 [facility] Work Phone: Comment on above: Expected: 09/13/2023 (Approximate), Expires: 12/13/2023 Start: 09-13-2023 End: 12-13-2023 Calcium.ionized [Moles/volume] in Blood CALCIUM IONIZED BLOOD Lab Routine Vitamin D deficiency 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) Expected: 09/13/2023 (Approximate), Expires: 12/13/2023 [facility] Work Phone: Comment on above: Expected: 09/13/2023 (Approximate), Expires: 12/13/2023 Start: 09-13-2023 End: 06-15-2024 CBC W Auto Differential panel - Blood CBC + DIFF Lab Routine Vitamin D deficiency 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) Expected: 09/13/2023 (Approximate), Expires: 06/15/2024 [facility] Work Phone: Comment on above: Expected: 09/13/2023 (Approximate), Expires: 06/15/2024 Start: 09-13-2023 End: 06-15-2024 Cobalamin (Vitamin B12) [Mass/volume] in Serum or Plasma VITAMIN B12 BLOOD Lab Routine Vitamin D deficiency 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) Expected: 09/13/2023 (Approximate), Expires: 06/15/2024 [facility] Work Phone: Comment on above: Expected: 09/13/2023 (Approximate), Expires: 06/15/2024 Start: 09-13-2023 End: 06-15-2024 Comprehensive metabolic 2000 panel - Serum or Plasma COMP METABOLIC PANEL Lab Routine Vitamin D deficiency 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) Expected: 09/13/2023 (Approximate), Expires: 06/15/2024 [facility] Work Phone: Comment on above: Expected: 09/13/2023 (Approximate), Expires: 06/15/2024 Start: 09-13-2023 End: 06-15-2024 Ferritin [Mass/volume] in Serum or Plasma FERRITIN BLD Lab Routine Vitamin D deficiency 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) Expected: 09/13/2023 (Approximate), Expires: 06/15/2024 [facility] Work Phone: Comment on above: Expected: 09/13/2023 (Approximate), Expires: 06/15/2024 Start: 09-13-2023 End: 06-15-2024 Folate [Mass/volume] in Serum or Plasma FOLATE SERUM Lab Routine Vitamin D deficiency 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) Expected: 09/13/2023 (Approximate), Expires: 06/15/2024 [facility] Work Phone: Comment on above: Expected: 09/13/2023 (Approximate), Expires: 06/15/2024 Start: 09-13-2023 End: 06-15-2024 Iron and Iron binding capacity panel - Serum or Plasma IRON + TIBC Lab Routine Vitamin D deficiency 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) Expected: 09/13/2023 (Approximate), Expires: 06/15/2024 [facility] Work Phone: Comment on above: Expected: 09/13/2023 (Approximate), Expires: 06/15/2024 Start: 09-13-2023 End: 12-13-2023 Parathyrin.intact [Mass/volume] in Serum or Plasma PTH INTACT BLD Lab Routine Vitamin D deficiency 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) Expected: 09/13/2023 (Approximate), Expires: 12/13/2023 [facility] Work Phone: Comment on above: Expected: 09/13/2023 (Approximate), Expires: 12/13/2023 Start: 06-15-2023 End: 09-14-2023 25-hydroxyvitamin D3 [Mass/volume] in Serum or Plasma VITAMIN D 25 HYDROXY Lab Routine Vitamin D deficiency Expected: 06/15/2023 (Approximate), Expires: 09/14/2023 [facility] Work Phone: Comment on above: Expected: 06/15/2023 (Approximate), Expires: 09/14/2023 Start: 06-15-2023 End: 09-14-2023 Calcium.ionized [Moles/volume] in Blood CALCIUM IONIZED BLOOD Lab Routine Vitamin D deficiency Hypercalcemia Expected: 06/15/2023 (Approximate), Expires: 09/14/2023 [facility] Work Phone: Comment on above: Expected: 06/15/2023 (Approximate), Expires: 09/14/2023 Start: 06-15-2023 End: 06-12-2024 CBC W Auto Differential panel - Blood CBC + DIFF Lab Routine Iron deficiency anemia secondary to blood loss (chronic) Expected: 06/15/2023 (Approximate), Expires: 06/12/2024 [facility] Work Phone: Comment on above: Expected: 06/15/2023 (Approximate), Expires: 06/12/2024 Start: 06-15-2023 End: 06-12-2024 Cobalamin (Vitamin B12) [Mass/volume] in Serum or Plasma VITAMIN B12 BLOOD Lab Routine Iron deficiency anemia secondary to blood loss (chronic) Expected: 06/15/2023 (Approximate), Expires: 06/12/2024 [facility] Work Phone: Comment on above: Expected: 06/15/2023 (Approximate), Expires: 06/12/2024 Start: 06-15-2023 End: 06-12-2024 Comprehensive metabolic 2000 panel - Serum or Plasma COMP METABOLIC PANEL Lab Routine Iron deficiency anemia secondary to blood loss (chronic) Expected: 06/15/2023 (Approximate), Expires: 06/12/2024 [facility] Work Phone: Comment on above: Expected: 06/15/2023 (Approximate), Expires: 06/12/2024 Start: 06-15-2023 End: 06-12-2024 Ferritin [Mass/volume] in Serum or Plasma FERRITIN BLD Lab Routine Iron deficiency anemia secondary to blood loss (chronic) Expected: 06/15/2023 (Approximate), Expires: 06/12/2024 [facility] Work Phone: Comment on above: Expected: 06/15/2023 (Approximate), Expires: 06/12/2024 Start: 06-15-2023 End: 06-12-2024 Folate [Mass/volume] in Serum or Plasma FOLATE SERUM Lab Routine Iron deficiency anemia secondary to blood loss (chronic) Expected: 06/15/2023 (Approximate), Expires: 06/12/2024 [facility] Work Phone: Comment on above: Expected: 06/15/2023 (Approximate), Expires: 06/12/2024 Start: 06-15-2023 End: 06-12-2024 Iron and Iron binding capacity panel - Serum or Plasma IRON + TIBC Lab Routine Iron deficiency anemia secondary to blood loss (chronic) Expected: 06/15/2023 (Approximate), Expires: 06/12/2024 [facility] Work Phone: Comment on above: Expected: 06/15/2023 (Approximate), Expires: 06/12/2024 Start: 06-15-2023 End: 09-14-2023 PTH, INTACT (WITHOUT CALCIUM) PTH, INTACT (WITHOUT CALCIUM) Lab Routine Vitamin D deficiency Hypercalcemia Expected: 06/15/2023 (Approximate), Expires: 09/14/2023 [facility] Work Phone: Comment on above: Expected: 06/15/2023 (Approximate), Expires: 09/14/2023 Start: 06-15-2023 End: 09-14-2023 Thyrotropin [Units/volume] in Serum or Plasma TSH BLD Lab Routine Malaise and fatigue Expected: 06/15/2023 (Approximate), Expires: 09/14/2023 [facility] Work Phone: Comment on above: Expected: 06/15/2023 (Approximate), Expires: 09/14/2023 Start: 06-14-2023 End: 09-13-2023 25-hydroxyvitamin D3 [Mass/volume] in Serum or Plasma VITAMIN D 25 HYDROXY Lab Routine Hypercalcemia Vitamin D deficiency Expected: 06/14/2023 (Approximate), Expires: 09/13/2023 [facility] Work Phone: Comment on above: Expected: 06/14/2023 (Approximate), Expires: 09/13/2023 Start: 06-14-2023 End: 09-13-2023 Calcium.ionized [Moles/volume] in Blood CALCIUM IONIZED BLOOD Lab Routine Hypercalcemia Vitamin D deficiency Expected: 06/14/2023 (Approximate), Expires: 09/13/2023 [facility] Work Phone: Comment on above: Expected: 06/14/2023 (Approximate), Expires: 09/13/2023 Start: 06-14-2023 End: 09-13-2023 PTH, INTACT (WITHOUT CALCIUM) PTH, INTACT (WITHOUT CALCIUM) Lab Routine Hypercalcemia Vitamin D deficiency Expected: 06/14/2023 (Approximate), Expires: 09/13/2023 [facility] Work Phone: Comment on above: Expected: 06/14/2023 (Approximate), Expires: 09/13/2023 Start: 06-14-2023 End: 09-13-2023 Thyrotropin [Units/volume] in Serum or Plasma TSH BLD Lab Routine Hypercalcemia Malaise and fatigue Expected: 06/14/2023 (Approximate), Expires: 09/13/2023 [facility] Work Phone: Comment on above: Expected: 06/14/2023 (Approximate), Expires: 09/13/2023 Start: 05-14-2023 End: 03-19-2024 CBC W Auto Differential panel - Blood CBC + DIFF Lab Routine Primary hypercoagulable state (HCC) Iron deficiency anemia secondary to blood loss (chronic) Vitamin D deficiency CVA, old, 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) Expected: 05/14/2023 (Approximate), Expires: 03/19/2024 [facility] Work Phone: Comment on above: Expected: 05/14/2023 (Approximate), Expires: 03/19/2024 Start: 05-14-2023 End: 03-19-2024 Cobalamin (Vitamin B12) [Mass/volume] in Serum or Plasma VITAMIN B12 BLOOD Lab Routine Primary hypercoagulable state (HCC) Iron deficiency anemia secondary to blood loss (chronic) Vitamin D deficiency CVA, old, 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) Expected: 05/14/2023 (Approximate), Expires: 03/19/2024 [facility] Work Phone: Comment on above: Expected: 05/14/2023 (Approximate), Expires: 03/19/2024 Start: 05-14-2023 End: 03-19-2024 Comprehensive metabolic 2000 panel - Serum or Plasma COMP METABOLIC PANEL Lab Routine Primary hypercoagulable state (HCC) Iron deficiency anemia secondary to blood loss (chronic) Vitamin D deficiency CVA, old, 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) Expected: 05/14/2023 (Approximate), Expires: 03/19/2024 [facility] Work Phone: Comment on above: Expected: 05/14/2023 (Approximate), Expires: 03/19/2024 Start: 05-14-2023 End: 03-19-2024 Ferritin [Mass/volume] in Serum or Plasma FERRITIN BLD Lab Routine Primary hypercoagulable state (HCC) Iron deficiency anemia secondary to blood loss (chronic) Vitamin D deficiency CVA, old, 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) Expected: 05/14/2023 (Approximate), Expires: 03/19/2024 [facility] Work Phone: Comment on above: Expected: 05/14/2023 (Approximate), Expires: 03/19/2024 Start: 05-14-2023 End: 03-19-2024 Folate [Mass/volume] in Serum or Plasma FOLATE SERUM Lab Routine Primary hypercoagulable state (HCC) Iron deficiency anemia secondary to blood loss (chronic) Vitamin D deficiency CVA, old, 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) Expected: 05/14/2023 (Approximate), Expires: 03/19/2024 [facility] Work Phone: Comment on above: Expected: 05/14/2023 (Approximate), Expires: 03/19/2024 Start: 05-14-2023 End: 03-19-2024 Iron and Iron binding capacity panel - Serum or Plasma IRON + TIBC Lab Routine Primary hypercoagulable state (HCC) Iron deficiency anemia secondary to blood loss (chronic) Vitamin D deficiency CVA, old, 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) Expected: 05/14/2023 (Approximate), Expires: 03/19/2024 [facility] Work Phone: Comment on above: Expected: 05/14/2023 (Approximate), Expires: 03/19/2024 Start: 04-30-2023 Behavioral Health Screening Behavioral Health Screening [facility] Start: 04-30-2023 Depression Assessment Depression Ass essment [facility] Start: 02-16-2023 End: 04-18-2023 25-hydroxyvitamin D3 [Mass/volume] in Serum or Plasma VITAMIN D 25 HYDROXY Lab Routine Primary hypercoagulable state (HCC) Iron deficiency anemia secondary to blood loss (chronic) Vitamin D deficiency Expected: 02/16/2023 (Approximate), Expires: 04/18/2023 [facility] Work Phone: Comment on above: Expected: 02/16/2023 (Approximate), Expires: 04/18/2023 Start: 02-16-2023 End: 12-23-2023 CBC W Auto Differential panel - Blood CBC + DIFF Lab Routine Primary hypercoagulable state (HCC) Iron deficiency anemia secondary to blood loss (chronic) Expected: 02/16/2023 (Approximate), Expires: 12/23/2023 [facility] Work Phone: Comment on above: Expected: 02/16/2023 (Approximate), Expires: 12/23/2023 Start: 02-16-2023 End: 12-23-2023 Cobalamin (Vitamin B12) [Mass/volume] in Serum or Plasma VITAMIN B12 BLOOD Lab Routine Primary hypercoagulable state (HCC) Iron deficiency anemia secondary to blood loss (chronic) Expected: 02/16/2023 (Approximate), Expires: 12/23/2023 [facility] Work Phone: Comment on above: Expected: 02/16/2023 (Approximate), Expires: 12/23/2023 Start: 02-16-2023 End: 12-23-2023 Comprehensive metabolic 2000 panel - Serum or Plasma COMP METABOLIC PANEL Lab Routine Primary hypercoagulable state (HCC) Iron deficiency anemia secondary to blood loss (chronic) Expected: 02/16/2023 (Approximate), Expires: 12/23/2023 [facility] Work Phone: Comment on above: Expected: 02/16/2023 (Approximate), Expires: 12/23/2023 Start: 02-16-2023 End: 12-23-2023 Ferritin [Mass/volume] in Serum or Plasma FERRITIN BLD Lab Routine Primary hypercoagulable state (HCC) Iron deficiency anemia secondary to blood loss (chronic) Expected: 02/16/2023 (Approximate), Expires: 12/23/2023 [facility] Work Phone: Comment on above: Expected: 02/16/2023 (Approximate), Expires: 12/23/2023 Start: 02-16-2023 End: 12-23-2023 Folate [Mass/volume] in Serum or Plasma FOLATE SERUM Lab Routine Primary hypercoagulable state (HCC) Iron deficiency anemia secondary to blood loss (chronic) Expected: 02/16/2023 (Approximate), Expires: 12/23/2023 [facility] Work Phone: Comment on above: Expected: 02/16/2023 (Approximate), Expires: 12/23/2023 Start: 02-16-2023 End: 12-23-2023 Iron and Iron binding capacity panel - Serum or Plasma IRON + TIBC Lab Routine Primary hypercoagulable state (HCC) Iron deficiency anemia secondary to blood loss (chronic) Expected: 02/16/2023 (Approximate), Expires: 12/23/2023 [facility] Work Phone: Comment on above: Expected: 02/16/2023 (Approximate), Expires: 12/23/2023 Start: 12-29-2022 Covid-19 Vaccine () Covid-19 Vaccine () [facility] Start: 12-29-2022 Influenza vaccination [facility] Start: 12-04-2022 PAP TESTING PAP TESTING [facility] Start: 12-04-2022 Screening for malign ant neoplasm of cervix Pap Testing [facility] Start: 11-28-2022 End: 10-04-2023 CBC W Auto Differential panel - Blood CBC + DIFF Lab Routine Primary hypercoagulable state (HCC) CVA, old, speech/language deficit Cerebral hyponatremia Expected: 11/28/2022 (Approximate), Expires: 10/04/2023 [facility] Work Phone: Comment on above: Expected: 11/28/2022 (Approximate), Expires: 10/04/2023 Start: 11-28-2022 End: 10-04-2023 Cobalamin (Vitamin B12) [Mass/volume] in Serum or Plasma VITAMIN B12 BLOOD Lab Routine Primary hypercoagulable state (HCC) CVA, old, speech/language deficit Cerebral hyponatremia Expected: 11/28/2022 (Approximate), Expires: 10/04/2023 [facility] Work Phone: Comment on above: Expected: 11/28/2022 (Approximate), Expires: 10/04/2023 Start: 11-28-2022 End: 10-04-2023 Comprehensive metabolic 2000 panel - Serum or Plasma COMP METABOLIC PANEL Lab Routine Primary hypercoagulable state (HCC) CVA, old, speech/language deficit Cerebral hyponatremia Expected: 11/28/2022 (Approximate), Expires: 10/04/2023 [facility] Work Phone: Comment on above: Expected: 11/28/2022 (Approximate), Expires: 10/04/2023 Start: 11-28-2022 End: 10-04-2023 Ferritin [Mass/volume] in Serum or Plasma FERRITIN BLD Lab Routine Primary hypercoagulable state (HCC) CVA, old, speech/language deficit Cerebral hyponatremia Expected: 11/28/2022 (Approximate), Expires: 10/04/2023 [facility] Work Phone: Comment on above: Expected: 11/28/2022 (Approximate), Expires: 10/04/2023 Start: 11-28-2022 End: 10-04-2023 Folate [Mass/volume] in Serum or Plasma FOLATE SERUM Lab Routine Primary hypercoagulable state (HCC) CVA, old, speech/language deficit Cerebral hyponatremia Expected: 11/28/2022 (Approximate), Expires: 10/04/2023 [facility] Work Phone: Comment on above: Expected: 11/28/2022 (Approximate), Expires: 10/04/2023 Start: 11-28-2022 End: 10-04-2023 Iron and Iron binding capacity panel - Serum or Plasma IRON + TIBC Lab Routine Primary hypercoagulable state (HCC) CVA, old, speech/language deficit Cerebral hyponatremia Expected: 11/28/2022 (Approximate), Expires: 10/04/2023 [facility] Work Phone: Comment on above: Expected: 11/28/2022 (Approximate), Expires: 10/04/2023 Start: 09-21-2022 End: 07-28-2023 CBC W Auto Differential panel - Blood CBC + DIFF Lab Routine Primary hypercoagulable state (HCC) 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, old, speech/language deficit Expected: 09/21/2022 (Approximate), Expires: 07/28/2023 [facility] Work Phone: Comment on above: Expected: 09/21/2022 (Approximate), Expires: 07/28/2023 Start: 09-21-2022 End: 07-28-2023 Cobalamin (Vitamin B12) [Mass/volume] in Serum or Plasma VITAMIN B12 BLOOD Lab Routine Primary hypercoagulable state (HCC) 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, old, speech/language deficit Expected: 09/21/2022 (Approximate), Expires: 07/28/2023 [facility] Work Phone: Comment on above: Expected: 09/21/2022 (Approximate), Expires: 07/28/2023 Start: 09-21-2022 End: 07-28-2023 Comprehensive metabolic 2000 panel - Serum or Plasma COMP METABOLIC PANEL Lab Routine Primary hypercoagulable state (HCC) 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, old, speech/language deficit Expected: 09/21/2022 (Approximate), Expires: 07/28/2023 [facility] Work Phone: Comment on above: Expected: 09/21/2022 (Approximate), Expires: 07/28/2023 Start: 09-21-2022 End: 07-28-2023 Ferritin [Mass/volume] in Serum or Plasma FERRITIN BLD Lab Routine Primary hypercoagulable state (HCC) 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, old, speech/language deficit Expected: 09/21/2022 (Approximate), Expires: 07/28/2023 [facility] Work Phone: Comment on above: Expected: 09/21/2022 (Approximate), Expires: 07/28/2023 Start: 09-21-2022 End: 07-28-2023 Folate [Mass/volume] in Serum or Plasma FOLATE SERUM Lab Routine Primary hypercoagulable state (HCC) 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, old, speech/language deficit Expected: 09/21/2022 (Approximate), Expires: 07/28/2023 [facility] Work Phone: Comment on above: Expected: 09/21/2022 (Approximate), Expires: 07/28/2023 Start: 09-21-2022 End: 07-28-2023 Iron and Iron binding capacity panel - Serum or Plasma IRON + TIBC Lab Routine Primary hypercoagulable state (HCC) 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, old, speech/language deficit Expected: 09/21/2022 (Approximate), Expires: 07/28/2023 [facility] Work Phone: Comment on above: Expected: 09/21/2022 (Approximate), Expires: 07/28/2023 Start: 04-30-2022 DEPRESSION ASSESSMENT DEPRESSION ASS ESSMENT [facility] Start: 01-30-2022 End: 01-30-2023 Ferritin [Mass/volume] in Serum or Plasma FERRITIN BLD Lab Routine Anemia, unspecified type Expected: 01/30/2022, Expires: 01/30/2023 [facility] Work Phone: Comment on above: Expected: 01/30/2022 , Expires: 01/30/2023 Start: 01-30-2022 End: 01-30-2023 Iron and Iron binding capacity panel - Serum or Plasma IRON + TIBC Lab Routine Anemia, unspecified type Expected: 01/30/2022, Expires: 01/30/2023 [facility] Work Phone: Comment on above: Expected: 01/30/2022 , Expires: 01/30/2023 Start: 12-29-2021 Influenza vaccination [facility] Start: 12-29-2021 End: 12-29-2021 Patient encounter procedure 12/29/2021 Routine Perinatology [facility] Start: 04-30-2021 DEPRESSION ASSESSMENT DEPRESSION ASS ESSMENT [facility] Start: 02-01-2021 Adult depression screening assessment DEPRESSION SCREENING [facility] Start: 12-04-2020 Screening for malign ant neoplasm of cervix Cervical Cancer Screening [facility] Start: 2020 Diabetes screen Diabetes screen [facility] Start: 10-22-2015 HPV TESTING HPV TESTING [facility] Start: 10-22-2015 Screening for malign ant neoplasm of cervix [facility] Start: 2006 Screening for malign ant neoplasm of cervix Pap smear [facility] Start: 2004 DTaP,Tdap and Td Vaccines (1 - Tdap) DTaP,Tdap and Td Vaccines (1 - Tdap) [facility] Start: 2004 Hepatitis B Vaccine (1 of 3 - 19+ 3-dose series) Hepatitis B Vaccine (1 of 3 - 19+ 3-dose series) [facility] Start: 10-22-2003 Adult BMI Screening Adult BMI Screen ing [facility] Start: 10-22-2003 Anxiety Screening Anxiety Screening [facility] Start: 10-22-2003 Depression Screening Depression Scre ening [facility] Start: 10-22-2003 HEPATITIS C SCREENING HEPATITIS C SC REENING [facility] Start: 10-22-2003 Hepatitis C screening B [facility] Start: 10-22-2003 HIV SCREENING HIV SCREENING [facility] Start: 10-22-2003 HIV screening HIV Screening [facility] Start: 1997 Depression Screen Depression Screen [facility] Start: 1997 Depression Screening Depression Scre ening [facility] Start: 1997 Tobacco Screening Tobacco Screening [facility] Start: 1990 COVID-19 VACCINE (#1) COVID-19 VACCI NE (#1) [facility] Start: 1990 COVID-19 VACCINE (1) COVID-19 VACCIN E (1) [facility] Start: 1986 Varicella vaccine (1 of 2 - 2-dose childhood series) Varicella vaccine (1 of 2 - 2-dose childhood series) [facility] Start: 04-22-1986 COVID-19 Vaccine (#1) COVID-19 Vacci ne (#1) [facility] Start: 1985 HEPATITIS B (1 of 3 - 3-dose series) HEPATITIS B (1 of 3 - 3-dose series) [facility] Start: 1985 Hepatitis B Vaccine (1 of 3 - 3-dose series) Hepatitis B Vaccine (1 of 3 - 3-dose series) [facility] End: 11-21-2021 Alpha Fetoprotein, Maternal [facility] Work Phone: Comment on above: Once for 1 Occurrenc es starting 11/21/2021 until 11/21/2021 Bacteria identified in Urine by Culture Urine culture Microbiology Routine Missed menses Ordered: 04/04/2024 [facility] Comment on above: Ordered: 04/04/2024 Bacteria identified in Urine by Culture Urine culture Microbiology Routine Missed menses Ordered: 10/02/2024 [facility] Comment on above: Ordered: 10/02/2024 End: 01-30-2023 CBC W Auto Differential panel - Blood CBC + DIFF Lab Routine Primary hypercoagulable state (HCC) CVA, old, 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) Every 2 months for 6 Occurrences starting 01/30/2022 until 01/30/2023 [facility] Work Phone: Comment on above: Every 2 months for 6 Occurrences starting 01/30/2022 until 01/30/2023 CBC W Auto Different ial panel - Blood CBC and differential Lab Routine Missed menses , unspecified gestational age Ordered: 04/04/2024 [facility] Comment on above: Ordered: 04/04/2024 CBC W Auto Different ial panel - Blood CBC and differential Lab Routine Missed menses , unspecified gestational age Ordered: 10/02/2024 [facility] Comment on above: Ordered: 10/02/2024 CHLAMYDIA TRACHOMATI S (GENITO/STI) CHLAMYDIA TRACHOMATIS (GENITO/STI) Lab Routine Vaginal bleeding Vaginal discharge Ordered: 06/23/2024 [facility] Comment on above: Ordered: 06/23/2024 CHLAMYDIA TRACHOMATI S (GENITO/STI) CHLAMYDIA TRACHOMATIS (GENITO/STI) Lab Routine Vaginal discharge Ordered: 11/20/2024 [facility] Comment on above: Ordered: 11/20/2024 End: 01-30-2023 Comprehensive metabolic 2000 panel - Serum or Plasma COMP METABOLIC PANEL Lab Routine Primary hypercoagulable state (HCC) CVA, old, 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) Every 2 months for 6 Occurrences starting 01/30/2022 until 01/30/2023 [facility] Work Phone: Comment on above: Every 2 months for 6 Occurrences starting 01/30/2022 until 01/30/2023 Hemoglobin A1c/Hemoglobin.total in Blood Hemoglobin A1c Lab Routine Missed menses , unspecified gestational age Ordered: 04/04/2024 [facility] Comment on above: Ordered: 04/04/2024 Hemoglobin A1c/Hemoglobin.total in Blood Hemoglobin A1c Lab Routine Missed menses , unspecified gestational age Ordered: 10/02/2024 [facility] Comment on above: Ordered: 10/02/2024 Hepatitis B virus surface Ag [Presence] in Serum or Plasma by Immunoassay Hepatitis B surface antigen Lab Routine Missed menses , unspecified gestational age Ordered: 04/04/2024 [facility] Comment on above: Ordered: 04/04/2024 Hepatitis B virus surface Ag [Presence] in Serum or Plasma by Immunoassay Hepatitis B surface antigen Lab Routine Missed menses , unspecified gestational age Ordered: 10/02/2024 [facility] Comment on above: Ordered: 10/02/2024 Hepatitis C virus Ab [Presence] in Serum or Plasma by Immunoassay Hepatitis C antibody Lab Routine Missed menses , unspecified gestational age Ordered: 04/04/2024 [facility] Comment on above: Ordered: 04/04/2024 Hepatitis C virus Ab [Presence] in Serum or Plasma by Immunoassay Hepatitis C antibody Lab Routine Missed menses , unspecified gestational age Ordered: 10/02/2024 [facility] Comment on above: Ordered: 10/02/2024 HIV-1/HIV-2 antigen/antibody combination immunoassay HIV-1 and HIV-2 antibodies Lab Routine Missed menses , unspecified gestational age Ordered: 04/04/2024 [facility] Comment on above: Ordered: 04/04/2024 HIV-1/HIV-2 antigen/antibody combination immunoassay HIV-1 and HIV-2 antibodies Lab Routine Missed menses , unspecified gestational age Ordered: 10/02/2024 [facility] Comment on above: Ordered: 10/02/2024 Neisseria gonorrhoea e DNA [Presence] in Unspecified specimen by LELO with probe detection Neisseria gonorrhea DNA probe, direct Lab Routine Vaginal bleeding Vaginal discharge Ordered: 06/23/2024 [facility] Comment on above: Ordered: 06/23/2024 Neisseria gonorrhoea e DNA [Presence] in Unspecified specimen by LELO with probe detection Neisseria gonorrhea DNA probe, direct Lab Routine Vaginal discharge Ordered: 11/20/2024 [facility] Comment on above: Ordered: 11/20/2024 Reagin Ab [Presence] in Serum by RPR RPR Lab Routine Missed menses , unspecified gestational age Ordered: 04/04/2024 [facility] Comment on above: Ordered: 04/04/2024 Reagin Ab [Presence] in Serum by RPR RPR Lab Routine Missed menses , unspecified gestational age Ordered: 10/02/2024 [facility] Comment on above: Ordered: 10/02/2024 Rubella antibody, IgG Rubella an tibody, IgG Lab Routine Missed menses , unspecified gestational age Ordered: 04/04/2024 [facility] Comment on above: Ordered: 04/04/2024 Rubella antibody, IgG Rubella an tibody, IgG Lab Routine Missed menses , unspecified gestational age Ordered: 10/02/2024 [facility] Comment on above: Ordered: 10/02/2024 SURESWAB(R) ADVANCED VAGINITIS PLUS, TMA SURESWAB(R) ADVANCED VAGINITIS PLUS, TMA Pathology and Cytology Routine Vaginal bleeding Vaginal discharge Ordered: 06/23/2024 [facility] Work Phone: Comment on above: Ordered: 06/23/2024 SURESWAB(R) ADVANCED VAGINITIS PLUS, TMA SURESWAB(R) ADVANCED VAGINITIS PLUS, TMA Pathology and Cytology Routine Vaginal discharge Ordered: 11/20/2024 [facility] Work Phone: Comment on above: Ordered: 11/20/2024 Thyrotropin [Units/volume] in Serum or Plasma TSH Lab Routine Hypothyroidism (acquired) ([facility]) Ordered: 04/04/2024 [facility] Comment on above: Ordered: 04/04/2024 Thyrotropin [Units/volume] in Serum or Plasma TSH Lab Routine History of thyroid disease Ordered: 06/02/2024 [facility] Work Phone: Comment on above: Ordered: 06/02/2024 Thyrotropin [Units/volume] in Serum or Plasma TSH Lab Routine Thyroid disease ([facility]) Ordered: 10/02/2024 [facility] Comment on above: Ordered: 10/02/2024 Thyrotropin [Units/volume] in Serum or Plasma TSH Lab Routine Second trimester ([facility]) Thyroid disease Ordered: 12/11/2024 [facility] Work Phone: Comment on above: Ordered: 12/11/2024 UA DIP, URINE (POC) UA DIP, URIN E (POC) Lab Routine Infective urethritis Ordered: 08/01/2021 [facility] Work Phone: Comment on above: Ordered: 08/01/2021 Vitamin D 1,25 dihydroxy Vitamin D 1,25 dihydroxy Lab Routine Low vitamin D level Ordered: 04/04/2024 [facility] Comment on above: Ordered: 04/04/2024 End: 12-03-2025 Vitamin D 25 hydroxy Vitamin D 25 hydroxy Lab Routine Insulin controlled gestational diabetes mellitus (GDM) in second trimester 1 Occurrences starting 12/03/2024 until 12/03/2025 [facility] Work Phone: Comment on above: 1 Occurrences starti ng 12/03/2024 until 12/03/2025 [facility] c [facility] c [facility] Immunizations Immunization Date Immunization Notes Care Provider Jamie alfonsosamreen 03-05-2018 influenza virus vaccine, unspecified formulation Kristofer Calix MD Work Phone: [facility] 07-03-2014 tetanus toxoid, reduced diphtheria toxoid, and acellular pertussis vaccine, adsorbed Ma Sand Work Phone: [facility] NEGATED: Highlighted row has not occurred!02-15-2023 influenza virus vaccine, unspecified formulation Penelope CASAS [facility] NEGATED: Highlighted row has not occurred!04-07-2020 influenza virus vaccine, unspecified formulation PERNELL LONGORIA [facility] [place] Payers Date Payer Category Payer Medicaid [id number] 2020 Medicaid [place] [employer] [id number] 2020-Present [phone] [address] [place] [address] Medicaid [id number] 2020 Medicaid [id number] [id number] 1985 Unknown [id number] 2.16.840.1.356065.3.579.2.356 1985 Unknown [id number] 2.16.840.1.570256.3.579.2.356 1985 Unknown [id number] 2.16.840.1.438444.3.579.2.175 1985 Unknown [id number] 2.16.840.1.960272.3.579.2.593 1985 Unknown [id number] 2.16.840.1.117892.3.579.2.593 1985 Unknown [id number] 2.16.840.1.836513.3.579.2.593 1985 Unknown [id number] 2.16.840.1.323059.3.579.2.593 1985 Unknown [id number] 2.16.840.1.751046.3.579.2.593 1985 Unknown [id number] 2.16.840.1.243864.3.579.2.593 1985 Unknown [id number] 2.16840.1.943560.3.579.2.593 1985 Unknown [id number] 2.16840.1.911617.3.579.2.593 1985 Unknown [id number] 2.16840.1.799683.3.579.2.593 1985 Unknown [id number] 2.16840.1.866704.3.579.2.593 1985 Unknown [id number] 2.16840.1.211953.3.579.2.593 1985 Unknown [id number] 2.16840.1.913017.3.579.2.593 1985 Unknown [id number] 2.16840.1.957104.3.579.2.593 1985 Unknown [id number] 2.16840.1.778280.3.579.2.593 1985 Unknown [id number] 2.16840.1.559191.3.579.2.593 1985 Unknown [id number] 2.16.840.1.529735.3.579.2.593 1985 Unknown [id number] 2.16840.1.544056.3.579.2.593 1985 Unknown [id number] 2.16.840.1.001840.3.579.2.593 1985 Unknown [id number] 2.16.840.1.615741.3.579.2.593 1985 Unknown [id number] 2.16.840.1.673306.3.579.2.593 1985 Unknown [id number] 2.16.840.1.566901.3.579.2.593 1985 Unknown [id number] 2.16.840.1.212078.3.579.2.593 1985 Unknown [id number] 2.16.840.1.926107.3.579.2593 1985 Unknown [id number] 2.16.840.1.443362.3.579.2.59 1985 Unknown [id number] 2.16.840.1.884355.3.579.2.59 1985 Unknown [id number] 2.16840.1.108981.3.579.2.593 1985 Unknown [id number] 2.16.840.1.722763.3.579.2.72 1985 Unknown [id number] 2.16.840.1.236773.3.579.2.72 1985 Unknown [id number] 2.16.840.1.563767.3.579.272 1985 Unknown [id number] 2.16.840.1.524413.3.579.2.727 1985 Unknown [id number] 2.16.840.1.815788.3.579.2.72 1985 Unknown [id number] 2.16.840.1.411763.3.579.2.727 1985 Unknown [id number] 2.16.840.1.836649.3.579.2 1985 Unknown [id number] 2.16.840.1.060330.3.579.2. 1985 Unknown [id number] 2.16.840.1.986012.3.579.2 1985 Unknown [id number] 2.16.840.1.272292.3.579.2 1985 Unknown [id number] 2.16.840.1.385393.3.579.2 1985 Unknown [id number] 2.16.840.1.821457.3.579.2 1985 Unknown [id number] 2.16840.1.016292.3.579.2 1985 Unknown [id number] 2.16840.1.603745.3.579.2 1985 Unknown [id number] 2.16840.1.615733.3.579.2 1985 Unknown [id number] 2.16840.1.719498.3.579.2 1985 Unknown [id number] 2.16840.1.194370.3.579.2 1985 Unknown [id number] 2.16840.1.804744.3.579.2 1985 Unknown [id number] 2.16840.1.717980.3.579.2 1985 Unknown [id number] 2.16.840.1.418460.3.579.2 1985 Unknown [id number] 2.16.840.1.675016.3.579.2 1985 Unknown [id number] 2.16.840.1.406615.3.579.2 1985 Unknown [id number] 2.16.840.1.954290.3.579.2. 1985 Unknown [id number] 2.16.840.1.204899.3.579.2 1985 Unknown [id number] 2.16.840.1.475799.3.579.2 1985 Unknown [id number] 2.16.840.1.808071.3.579.2 1985 Unknown [id number] 2.16.840.1.941205.3.579.2. 1985 Unknown [id number] 2.16840.1.943809.3.579.2 1985 Unknown [id number] 2.16840.1.760911.3.579.2 1985 Unknown [id number] 2.840.1.237497.3.579.2 1985 Unknown [id number] 2.16840.1.042943.3.579.2 1985 Unknown [id number] 2.16840.1.206705.3.579.2 1985 Unknown [id number] 2.16840.1.689145.3.579.2 1985 Unknown [id number] 2.16840.1.520180.3.579.2 1985 Unknown [id number] 2.16840.1.789627.3.579.2 1985 Unknown [id number] 2.16.840.1.895126.3.579.2 1985 Unknown [id number] 2.16.840.1.742669.3.579.2 1985 Unknown [id number] 2.16840.1.035486.3.579.2 1985 Unknown [id number] 2.16.840.1.869431.3.579.2.727 1985 Unknown [id number] 2.16.840.1.647179.3.579.2.72 1985 Unknown [id number] 2.16.840.1.266152.3.579.2.72 1985 Unknown [id number] 2.16840.1.712008.3.579.2.72 1985 Unknown [id number] 2.16.840.1.439520.3.579.2.1286 1985 Unknown [id number] 2.16840.1.783275.3.579.2.128 1985 Unknown [id number] 2.16840.1.428784.3.579.2. 1985 Unknown [id number] 2.840.1.878136.3.579.2.1258 1985 Unknown [id number] 2.16840.1.593090.3.579.2.1258 1985 Unknown [id number] 2.16840.1.530698.3.579.2.1258 1985 Unknown [id number] 2.840.1.982513.3.579.2.1258 1985 Unknown [id number] 2.840.1.556956.3.579.2.1258 1985 Unknown [id number] 2.16840.1.161896.3.579.2.1258 1985 Unknown [id number] 2.16840.1.907185.3.579.2.1258 1985 Unknown [id number] 2.16840.1.905026.3.579.2.1258 1985 Unknown [id number] 2.16840.1.944943.3.579.2.1258 1985 Unknown [id number] 2.16840.1.481600.3.579.2.1259 1985 Unknown [id number] 2.16.840.1.017699.3.579.2.1259 1959 Self-pay 1959 Unknown [id number] 1959 Unknown [id number] 1.2.840.334898.1.13.239.2.7.3.6 13864.315 Unknown [id number] 2.16.840.1.187857.3.579.2.593 Social History Date Type Detail Facility Start: 09-10-2017 End: 01-31-2019 Tobacco smoking status NHIS Never smoked tobacco [facility] Start: 09-10-2017 End: 01-31-2019 Tobacco use and exposure Smokeless tobacco non-user [facility] Start: 08-01-2021 End: 10-28-2024 Alcohol intake Current non-drinker of alcohol (finding) [facility] Start: 1985 Sex Assigned At Not on file [facility] Start: 07-22-2021 End: 03-27-2022 Exposure to SARS-CoV-2 (event) Not sure [facility] Start: 06-10-2020 End: 07-27-2022 Sex Assigned At Female [facility] Start: 11-21-2021 End: 11-04-2024 Alcohol intake Ex-drinker (finding) [facility] Phone: Start: 12-29-2016 History SDOH Alcohol Comment occasionally [facility] Phone: Start: 08-20-2021 [employer] Phone: Start: 06-10-2020 End: 07-27-2022 History of Social function [facility] Start: 04-04-2024 End: 12-11-2024 Alcoholic beverage intake Lifetime non-drinker (finding) [facility] Tobacco smoking stat us KYIS Unknown if ever smoked [facility] Work Phone: Start: 11-27-2018 End: 05-13-2024 Sex Female (finding) [facility] Start: 1985 Sex Assigned At Female [facility] Sexual Orientation [facility] Medical Equipment Procedure Code Equipment Code Equipment Origin al Text Equipment Identifier Dates [id number] Start: 10-30-2024 End: 11-29-2024 1 each by In Vit ro route Daily Use to check FSBS four times daily [id number] Start: 10-30-2024 End: 11-29-2024 Use a new needle with each injection ( 1- 5 times per day) [id number] Start: 12-03-2024 Functional Status Date Assessment Result Facility 06-30-2024 Functional Status N/A [facility] 06-19-2024 Functional Status N/A [facility] [place] 06-09-2024 Functional Status N/A [facility] 02-05-2024 Functional Status N/A [facility] 02-02-2024 Functional Status N/A [facility] 11-09-2023 Functional Status N/A [facility] 10-23-2023 Functional Status N/A [facility] 09-28-2023 Functional Status N/A [facility] 08-03-2023 Functional Status N/A [facility] 05-25-2023 Functional Status N/A [facility] 02-15-2023 Functional Status N/A [facility] 10-20-2022 Functional Status N/A [facility] Clinical Notes 07-26-2019 to 12-12-2024 Telephone Encounter - PRISCILLA Sutherland - 12/12/2024 10:21 AM EDTTelephone Encounter - PRISCILLA Sutherland - 12/12/2024 10:21 AM EDTTelephone Encounter - PRISCILLA Sutherland - 12/12/2024 9:05 AM EDTRadiology Note Date & Type Note Facility 12-12-2024 Miscellaneous Notes Called Sanna back told her that I [...] Sanna verbalized understanding. documented in this encounter [facility] 12-12-2024 Telephone encounter Note Called Sanna back told her that I [...] Alisa Saba APRN 12/17/2024. Sanna verbalized understanding. [facility] Work Phone: 12-12-2024 Miscellaneous Notes Called Sanna regarding blood sugars from -12/07/2024, [...] tried higher fiber snacks in the evening. Material Requisitioner told her that I would relay her concerns to a [facility] physician and get back to her. Obtained blood sugars for this week and will scan them into her chart. documented in this encounter [facility] 12-12-2024 Telephone encounter Note Called Sanna regarding blood sugars from -12/07/2024, [...] tried higher fiber snacks in the evening. Material Requisitioner told her that I would relay her concerns to a [facility] physician and get back to her. Obtained blood sugars for this week and will scan them into her chart. [facility] Work Phone: 12-11-2024 History of Present illness Narrative Reason for Appointment: Patient ID: Sanna Rendon is a 39 y.o. female who [...] Diagnosis Date Noted 32 weeks gestation of ([facility]) 11/28/2019 Abdominal pain 06/12/2023 Acute bronchitis due to infection 06/12/2023 Acute on chronic vesicular eczema of hands and feet 11/15/2023 Anemia complicating childbirth ([facility]) 01/16/2020 Anticoagulant long-term use 02/22/2020 Antiphospholipid antibody positive 09/10/2017 Antiphospholipid antibody syndrome ([facility]) 07/07/2019 Anxiety 06/12/2023 Blood pressure elevated without history of HTN 11/15/2023 BMI 37.0-37.9, adult 11/15/2023 Cerebral infarction, unspecified ([facility]) 05/16/2019 Cerebrovascular accident (CVA) due to stenosis of middle cerebral artery ([facility]) 02/22/2020 Cervicalgia 02/05/2019 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 ([facility]) 01/08/2020 Coagulation defect, unspecified ([facility]) 02/05/2019 Cold intolerance 11/15/2023 Deficiency of other specified B group vitamins 05/16/2019 Deviated septum 11/15/2023 Dizziness and giddiness 02/05/2019 Dry mouth 11/15/2023 Dysfunction of eustachian tube 06/12/2023 Dyspnea 06/12/2023 Elevated blood pressure reading 11/15/2023 Encounter for supervision of normal , unspecified, first trimester ([facility]) 05/29/2019 Environmental allergies 11/15/2023 Fatigue 12/29/2016 First degree perineal laceration during delivery ([facility]) 01/16/2020 Frequency of micturition 02/19/2019 Genitourinary symptoms 08/19/2021 Gestational diabetes mellitus (GDM) affecting ([facility]) 01/26/2022 H/O: hypothyroidism 11/15/2023 Hematochezia 06/12/2023 [...] anemia 01/16/2020 Irregular uterine bleeding 11/15/2023 problem ([facility]) 06/12/2023 Less than 8 weeks gestation of ([facility]) 06/05/2019 intermediate (current) use of 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/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 02/05/2019 Migraine without aura and without status migrainosus, not intractable 09/12/2017 Morbid obesity ([facility]) 11/15/2023 Muscle fasciculation 08/19/2021 Nasal polyps 11/15/2023 Non-smoker 11/15/2023 NEETA (obstructive sleep apnea) 11/15/2023 Other acute postprocedural pain 02/03/2019 Other general symptoms and signs 10/28/2019 Other immediate hemorrhage ([facility]) 01/16/2020 Other specified noninflammatory disorders of vagina 02/21/2019 Pain in joint 12/29/2016 Palpitations 08/26/2019 Paresthesia of bilateral legs 11/15/2023 Pelvic and perineal pain 02/01/2019 Personal history of urinary (tract) infections 01/16/2020 Pre-diabetes 11/15/2023 Primary hypercoagulable state ([facility]) 08/01/2022 Pruritus, unspecified 01/02/2020 Psychogenic hyperventilation 06/12/2023 Raised antibody titer 09/25/2017 Right lower quadrant pain 11/15/2023 Right otitis externa 11/15/2023 Salivary gland swelling 11/15/2023 Single live ([facility]) 01/15/2020 Snoring 11/15/2023 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) 12/30/2019 Suspected severe acute respiratory syndrome coronavirus 2 (SARS-CoV-2) infection 06/12/2023 SVT (supraventricular tachycardia) ([facility]) 08/26/2019 Syncope and collapse 06/03/2018 Other bacterial [...] Date AMA (advanced maternal age) multigravida 35+ ([facility]) Anemia Antiphospholipid syndrome ([facility]) Gestational diabetes ([facility]) Heartburn Hypothyroid Stroke ([facility]) HISTORY PAST MEDICAL HISTORY SOCIAL HISTORY Past Medical History: Diagnosis Date AMA (advanced maternal age) multigravida 35+ ([facility]) Anemia Antiphospholipid syndrome ([facility]) Gestational diabetes ([facility]) Heartburn Hypothyroid Stroke ([facility]) Social History Tobacco [...] drainage of cyst WISDOM TOOTH EXTRACTION 2007 [place] teeth REVIEW OF SYSTEMS Review of Systems: [...] nursing note reviewed. Exam conducted with a 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 manager present. Vitals: Estimated body mass index is 33.41 kg/m as calculated from the following: Height as of 11/19/23: 5' 6 . Weight as of this encounter: 207 lb. BP: 120/70 Patient's last menstrual period was 07/28/2024. ASSESSMENT & PLAN ICD-10-CM 1. 19 weeks gestation of ([facility]) Z3A.19 POCT urinalysis dipstick manually resulted 2. Second trimester ([facility]) Z34.92 POCT urinalysis dipstick manually resulted 3. Thyroid disease E07.9 4. Multigravida of advanced maternal age in second trimester ([facility]) O09.522 5. Gestational diabetes mellitus (GDM), antepartum, gestational diabetes method of control unspecified ([facility]) O24.419 Patient presents today for a [...] OB care. Patient will continue to utilize [facility] for blood sugar management. Patient is scheduled with [facility] on 01/01/25 for scan and Telemedicine with [facility] provider in [place]. Documented by Rosi Murray LPN on behalf of: Wilton Herrmann DO documented in this encounter [facility] 12-03-2024 Miscellaneous Notes Left message with patient to call our office to schedule her next appt in 2 week with an MARKETING AREA MANAGER/PA. Left call back number and to press option 3 for scheduling. documented in this encounter [facility] 12-03-2024 Telephone encounter Note Left message with patient to call our office to schedule her next appt in 2 week with an MARKETING AREA MANAGER/PA. Left call back number and to press option 3 for scheduling. [facility] 12-03-2024 History of Present illness Narrative REASON FOR OFFICE VISIT: Med start 1. GDMA2; A1c 5.9% 2. On Metformin since 4th child 3. Hx GDMA2 4. AMA - cf DNA low risk boy HISTORY OF PRESENT ILLNESS: Sanna Rendon is a pleasant 39 y.o. at 18w2d due on Estimated Date of Delivery: 05/04/25. The patient is concerned about starting insulin. She is being followed at [facility] due to GDMA2. States she is following [...] TSH 1.25 10/28/2024 No results found for: [id number] No results found for: CREATININE , BUN [...] baby. Little research has been done on safety assistant effects of Metformin exposure to the fetus. [...] values to us weekly by e-mail to: [email or web address] or by fax to: [phone] TIME OF CONSULTATION: 60 minutes with the patient, >50% in discussion and counseling, coordination of care which was [id number], review of records and communication back to referring provider. BRENNEN Guillen 12/03/24 1500 documented in this encounter [facility] [employer] 11-20-2024 History of Present illness Narrative Reason for Appointment: Patient ID: Sanna Rendon is a 39 y.o. female who presents for Routine Visit Patient presents today for Return OB appointment. MEDICATIONS Current Outpatient Medications Medication Instructions Alcohol Swabs (Alcohol Prep Pad) 70 % pads 1 Pad, Topical, Daily, Use four times daily to check FSBS. Blood Glucose Monitoring Suppl ([employer] Glucometer) w/Device kit 1 kit, Does [...] Diagnosis Date Noted 32 weeks gestation of ([facility]) 11/28/2019 Abdominal pain 06/12/2023 Acute bronchitis due to infection 06/12/2023 Acute on chronic vesicular eczema of hands and feet 11/15/2023 Anemia complicating childbirth ([facility]) 01/16/2020 Anticoagulant long-term use 02/22/2020 Antiphospholipid antibody positive 09/10/2017 Antiphospholipid antibody syndrome ([facility]) 07/07/2019 Anxiety 06/12/2023 Blood pressure elevated without history of HTN 11/15/2023 BMI 37.0-37.9, adult 11/15/2023 Cerebral infarction, unspecified ([facility]) 05/16/2019 Cerebrovascular accident (CVA) due to stenosis of middle cerebral artery ([facility]) 02/22/2020 Cervicalgia 02/05/2019 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 ([facility]) 01/08/2020 Coagulation defect, unspecified ([facility]) 02/05/2019 Cold intolerance 11/15/2023 Deficiency of other specified B group vitamins 05/16/2019 Deviated septum 11/15/2023 Dizziness and giddiness 02/05/2019 Dry mouth 11/15/2023 Dysfunction of eustachian tube 06/12/2023 Dyspnea 06/12/2023 Elevated blood pressure reading 11/15/2023 Encounter for supervision of normal , unspecified, first trimester ([facility]) 05/29/2019 Environmental allergies 11/15/2023 Fatigue 12/29/2016 First degree perineal laceration during delivery ([facility]) 01/16/2020 Frequency of micturition 02/19/2019 Genitourinary symptoms 08/19/2021 Gestational diabetes mellitus (GDM) affecting ([facility]) 01/26/2022 H/O: hypothyroidism 11/15/2023 Hematochezia 06/12/2023 [...] anemia 01/16/2020 Irregular uterine bleeding 11/15/2023 problem ([facility]) 06/12/2023 Less than 8 weeks gestation of ([facility]) 06/05/2019 intermediate (current) use of 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/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 02/05/2019 Migraine without aura and without status migrainosus, not intractable 09/12/2017 Morbid obesity ([facility]) 11/15/2023 Muscle fasciculation 08/19/2021 Nasal polyps 11/15/2023 Non-smoker 11/15/2023 NEETA (obstructive sleep apnea) 11/15/2023 Other acute postprocedural pain 02/03/2019 Other general symptoms and signs 10/28/2019 Other immediate hemorrhage ([facility]) 01/16/2020 Other specified noninflammatory disorders of vagina 02/21/2019 Pain in joint 12/29/2016 Palpitations 08/26/2019 Paresthesia of bilateral legs 11/15/2023 Pelvic and perineal pain 02/01/2019 Personal history of urinary (tract) infections 01/16/2020 Pre-diabetes 11/15/2023 Primary hypercoagulable state ([facility]) 08/01/2022 Pruritus, unspecified 01/02/2020 Psychogenic hyperventilation 06/12/2023 Raised antibody titer 09/25/2017 Right lower quadrant pain 11/15/2023 Right otitis externa 11/15/2023 Salivary gland swelling 11/15/2023 Single live ([facility]) 01/15/2020 Snoring 11/15/2023 Speech and language deficit [...] drainage of cyst WISDOM TOOTH EXTRACTION 2007 [place] teeth REVIEW OF SYSTEMS Review of Systems: [...] nursing note reviewed. Exam conducted with a 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 manager present. Vitals: Estimated body mass index is 33.57 kg/m as calculated from the following: Height as of 11/19/23: 5' 6 . Weight as of this encounter: 208 lb. BP: 108/76 Patient's last menstrual period was 07/28/2024. ASSESSMENT & PLAN ICD-10-CM 1. Second trimester ([facility]) Z34.92 Alpha fetoprotein, maternal Alpha fetoprotein, maternal 2. 16 weeks gestation of ([facility]) Z3A.16 POCT urinalysis dipstick manually resulted 3. Screening, , for anatomic survey ([facility]) Z36.89 CANCELED: US OB 14+ weeks [...] Wilton Herrmann DO documented in this encounter [facility] 11-19-2024 Group counseling note Patient: Sanna Rendon Date: 11/19/2024 Vitals: 11/19/24 1307 Weight: [...] Face to face time was 100 minutes. [employer] Work Phone: 11-19-2024 Miscellaneous Notes Patient: Sanna Rendon Date: 11/19/2024 Vitals: 11/19/24 1307 Weight: [...] was 100 minutes. documented in this encounter [employer] 11-05-2024 Telephone encounter Note Pt updated. She reports she is unable to take aspirin. It makes my electrolytes go out of whack. I didn't take with my previous pregnancies and I am not comfortable taking this time either. She will continue with Lovenox, as recommended. Pt is scheduled for appt with high school coordinator, 11/19/24, Leyla Oh. She denies further questions, needs or concerns for our care team at this time. Appt verified for RTC Rachael Johnson RN [facility] 11-05-2024 Miscellaneous Notes Pt updated. She reports she is unable to take aspirin. It makes my electrolytes go out of whack. I didn't take with my previous pregnancies and I am not comfortable taking this time either. She will continue with Lovenox, as recommended. Pt is scheduled for appt with high school coordinator, 11/19/24, Leyla Oh. She denies further questions, needs or concerns for our care team at this time. Appt verified for RTC Rachael Johnson RN Spoke with Dr. Moscoso and she is to continue Lovenox 40 daily and add baby asa (81 mg) daily. Please also make sure she is following OB High risk. Labs acceptable at this time. Will monitor. Katherine Sofia APRN.TOR Katherine saw this patient last and will be able to advise better of the plan of care. Abbie Jimenez PA-C Labs resulted. Please advise. Valeri Yan RN Images from the original note were not included. documented in this encounter [facility] 11-05-2024 Telephone encounter Note Spoke with Dr. Moscoso and she is to continue Lovenox 40 daily and add baby asa (81 mg) daily. Please also make sure she is following OB High risk. Labs acceptable at this time. Will monitor. Katherine Sofia APRN.ATHLETIC COACH [facility] Work Phone: 11-04-2024 Telephone encounter Note Katherine saw this patient last and will be able to advise better of the plan of care. Abbie Jimenez PA-C [facility] Work Phone: 10-30-2024 History of Present illness Narrative Reason for Appointment: Patient ID: Sanna Rendon is a 39 y.o. female who [...] Diagnosis Date Noted 32 weeks gestation of ([facility]) 11/28/2019 Abdominal pain 06/12/2023 Acute bronchitis due to infection 06/12/2023 Acute on chronic vesicular eczema of hands and feet 11/15/2023 Anemia complicating childbirth ([facility]) 01/16/2020 Anticoagulant long-term use 02/22/2020 Antiphospholipid antibody positive 09/10/2017 Antiphospholipid antibody syndrome ([facility]) 07/07/2019 Anxiety 06/12/2023 Blood pressure elevated without history of HTN 11/15/2023 BMI 37.0-37.9, adult 11/15/2023 Cerebral infarction, unspecified ([facility]) 05/16/2019 Cerebrovascular accident (CVA) due to stenosis of middle cerebral artery ([facility]) 02/22/2020 Cervicalgia 02/05/2019 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 ([facility]) 01/08/2020 Coagulation defect, unspecified ([facility]) 02/05/2019 Cold intolerance 11/15/2023 Deficiency of other specified B group vitamins 05/16/2019 Deviated septum 11/15/2023 Dizziness and giddiness 02/05/2019 Dry mouth 11/15/2023 Dysfunction of eustachian tube 06/12/2023 Dyspnea 06/12/2023 Elevated blood pressure reading 11/15/2023 Encounter for supervision of normal , unspecified, first trimester ([facility]) 05/29/2019 Environmental allergies 11/15/2023 Fatigue 12/29/2016 First degree perineal laceration during delivery ([facility]) 01/16/2020 Frequency of micturition 02/19/2019 Genitourinary symptoms 08/19/2021 Gestational diabetes mellitus (GDM) affecting ([facility]) 01/26/2022 H/O: hypothyroidism 11/15/2023 Hematochezia 06/12/2023 [...] anemia 01/16/2020 Irregular uterine bleeding 11/15/2023 problem ([facility]) 06/12/2023 Less than 8 weeks gestation of ([facility]) 06/05/2019 intermediate (current) use of 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/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 02/05/2019 Migraine without aura and without status migrainosus, not intractable 09/12/2017 Morbid obesity ([facility]) 11/15/2023 Muscle fasciculation 08/19/2021 Nasal polyps 11/15/2023 Non-smoker 11/15/2023 NEETA (obstructive sleep apnea) 11/15/2023 Other acute postprocedural pain 02/03/2019 Other general symptoms and signs 10/28/2019 Other immediate hemorrhage ([facility]) 01/16/2020 Other specified noninflammatory disorders of vagina 02/21/2019 Pain in joint 12/29/2016 Palpitations 08/26/2019 Paresthesia of bilateral legs 11/15/2023 Pelvic and perineal pain 02/01/2019 Personal history of urinary (tract) infections 01/16/2020 Pre-diabetes 11/15/2023 Primary hypercoagulable state ([facility]) 08/01/2022 Pruritus, unspecified 01/02/2020 Psychogenic hyperventilation 06/12/2023 Raised antibody titer 09/25/2017 Right lower quadrant pain 11/15/2023 Right otitis externa 11/15/2023 Salivary gland swelling 11/15/2023 Single live ([facility]) 01/15/2020 Snoring 11/15/2023 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) 12/30/2019 Suspected severe acute respiratory syndrome coronavirus 2 (SARS-CoV-2) infection 06/12/2023 SVT (supraventricular tachycardia) ([facility]) 08/26/2019 Syncope and collapse 06/03/2018 Other bacterial [...] ([facility]) Anemia Antiphospholipid syndrome ([facility]) Gestational diabetes ([facility]) Heartburn Hypothyroid Stroke ([facility]) HISTORY PAST MEDICAL HISTORY SOCIAL HISTORY Past Medical History: Diagnosis Date AMA (advanced maternal age) multigravida 35+ ([facility]) Anemia Antiphospholipid syndrome ([facility]) Gestational diabetes ([facility]) Heartburn Hypothyroid Stroke ([facility]) Social History Tobacco [...] drainage of cyst WISDOM TOOTH EXTRACTION 2007 [place] teeth REVIEW OF SYSTEMS Review of Systems: [...] nursing note reviewed. Exam conducted with a 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 manager present. Vitals: Estimated body mass index is 33.81 kg/m as calculated from the following: Height as of 11/19/23: 5' 6 . Weight as of this encounter: 209 lb 8 oz. BP: 110/76 Patient's last menstrual period was 07/28/2024. ASSESSMENT & PLAN ICD-10-CM 1. Second trimester ([facility]) Z34.92 POCT urinalysis dipstick manually resulted 2. 13 weeks gestation of ([facility]) Z3A.13 3. Thyroid disease E07.9 4. Multigravida of advanced maternal age in second trimester ([facility]) O09.522 New OB: Patient presents today [...] or undercooked meat, and stay away from [facility]. Patient has been consulted regarding any further do's and don'ts of . Patient voiced understanding and all questions and concerns were answered. Patient is currently on 40 Lovenox and will be referred to [facility] for recommendations/co-management throughout . Discussed concerns [...] Wilton Herrmann DO documented in this encounter [facility] 10-30-2024 Telephone encounter Note Labs resulted. Please advise. Valeri Yan RN [facility] 10-28-2024 Telephone encounter Note Images from the original note were not included. [facility] 10-28-2024 Note HNO ID: [id number] Author: KATHERINE NEGRETE APRN.ATHLETIC COACH Service: ? Author Type: Nurse Practitioner Type: Progress Notes Filed: 10/29/2024 21:44 Note Text: NAME: Sanna Rendon CLINIC NO.: [id number] DATE OF SERVICE: October 28, 2024 (Arsh) Some elements in this clinic note that are critical to medical decision making have been carefully reviewed and included from a prior clinic note dated: October 10, 2024 (Levon) Additional Clinicians involved in Sanna Rendon's care: Drs. Herrmann, Jorge Monge, Humaira Gaviria, Dr. Boothe CC: Hypercoag state CASE SUMMARY / ASSESSMENT: 39 year old woman presents with a prior history of CVA in 2016 and an antiphospholipid antibody that was identified much later in 2018. These were found in [place], [place]. I don't have access to these [...] a target-like rash shortly before presenting to [facility] in 2015 with headaches and was [...] are pending. Updated Visit, May 28, 2024: Sanna returns today for a follow up. She [...] at home. Updated Visit, January 02, 2024: Sanna returns today for a follow up. She [...] if indicated. Updated Visit, June 15, 2023: Sanna returns today with her youngest two children. She is still breast feeding. Numbness and vision changes both have (more content not included)... [facility] 10-28-2024 History of Present illness Narrative Images from the original note were not included. NAME: Sanna Rendon CLINIC NO.: [id number] DATE OF SERVICE: October 28, 2024 (Arsh) Some elements in this clinic note that are critical to medical decision making have been carefully reviewed and included from a prior clinic note dated: October 10, 2024 (Levon) Additional Clinicians involved in Sanna Rendon's care: Drs. Herrmann, Jorge Monge, Humaira Gaviria, Dr. Boothe CC: Hypercoag state CASE SUMMARY / ASSESSMENT: 39 year old woman presents with a prior history of CVA in 2016 and an antiphospholipid antibody that was identified much later in 2018. These were found in [place], [place]. I don't have access to these [...] a target-like rash shortly before presenting to [facility] in 2015 with headaches and was [...] are pending. Updated Visit, May 28, 2024: Sanna returns today for a follow up. She [...] at home. Updated Visit, January 02, 2024: Sanna returns today for a follow up. She [...] if indicated. Updated Visit, June 15, 2023: Sanna returns today with her youngest two children. She is still breast feeding. Numbness and vision changes both have subsided, she still plans to see Dr. Monge soon. When she had a stroke in [place], she had symptoms up to a month [...] and stayed on Lovenox Hgb 13.1 @ [facility] Recommended ER if persisting bleeding but she would prefer to stay on Lovenox for now. Updated Visit, July 27, 2022: Sanna returns today and has 2 of her youngest children with her. She didn't hemorrhage with her most recent delivery and has a healthy baby girl age 11 weeks. Her 3 year old son is with her too. Joints ache but perhaps related to 4 children 14- 11 weeks. Updated Visit, March 27, 2022: Sanna is 36 years old and is doing well with her current maintain on low-dose prophylactic Lovenox. Doing well overall but is having some bleeding following oral iron therapy due to constipation. May qualify for IV iron which will help her. She hemorrhaged after her last and required transfusion. 33 weeks - scheduled to be induced at 39 weeks Updated Visit, January 30, 2022: Sanna returns at 25 weeks of her current [...] She is otherwise getting along very well. Sanna Rendon is a 35-year-old woman with a [...] and at age 69. Both lived in [facility] but she was adopted. She was not able to see ID in October and will be seeing Dr. Baugh next week. Also will have her see Dr. Hamlin for her clotting disorder and make any other recommendations to optimize her treatment. Updated Visit, October 08, 2020: Telephone only Received call from pt stating she was seen in [facility] ER for numbness in her chest, throat, and extremities, and sob which has been worsening over the last week. We arranged a telephone visit for her to review questions with me. Sanna Rendon is a 34 year old female seen for Hypercoagulable state and recent concerns and symptoms that required her to be seen at [facility]. She went to the ER with Gradual worsening of breathing after progressive tingling of fingers and legs. She currently remains very fatigued even though she is sleeping well. Now recalls that before her stroke she remembers having a bull's eye rash and was seen with severe headaches in [place], [place] - was found to have a stroke in 2016. Updated Visit, May 05, 2020: Sanna is 34 years old and returns for [...] a root canal and was sent to [facility] for MRI which was negative but non-contrasted. [...] labs reviewed. Updated Visit, February 02, 2020: Sanna is 34 yo and delivered a healthy [...] consider DOAC. Initial Visit, May 19, 2019: Sanna Rendon presents today at the request of Dr. Herrmann for oncology evaluation. She is a 33 year old female who is currently on Plavix for CVA prophylaxis and is been referred for opinion regarding changing over to Lovenox due to her underlying findings of antiphospholipid antibodies. Her history goes back to January 2016 in [facility] where she had persisting headaches and slurred speech followed by lower extremity weakness. This took a few months to resolve and she is back to her normal state of being but some point in time during her her next she was seen by Dr. Humera Hyde in [place] as well and was found to have [...] which included preparing to see the patient, [id number] patient care, completing clinical documentation, obtaining and/or reviewing separately obtained history, performing a medically appropriate examination, counseling and educating the patient/family/caregiver, ordering medications, tests, or procedures, independently interpreting results (not separately reported), and communicating results to the patient/family/caregiver. Katherine Negrete APRN.TOR [facility]ology [facility] Services Provided at: [place], [place] CC: MD Wilton Day, [address] [place] [address] Humaira Gaviria MD [address] [place] [id number] MD Cosmo Kingston MD Michael Blank, MD documented in this encounter [facility] 10-24-2024 Telephone encounter Note New orders may need placed for appt on 10/28. Kaur Dunham MA [facility] 10-24-2024 Miscellaneous Notes New orders may need placed for appt on 10/28. Kaur Dunham MA documented in this encounter [facility] 10-13-2024 Miscellaneous Notes Attempted to contact patient x3, call cannot be completed, cannot receive calls at this time. Unable to leave a voicemail. documented in this encounter [facility] 10-13-2024 Telephone encounter Note Attempted to contact patient x3, call cannot be completed, cannot receive calls at this time. Unable to leave a voicemail. [facility] 10-02-2024 History of Present illness Narrative Reason for Appointment: Patient ID: Sanna Rendon is a 38 y.o. female who [...] Less than 8 weeks gestation of 06/05/2019 neck cutter (current) use of 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/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 02/05/2019 Migraine without [...] (CMS/HCC) 08/01/2022 Pruritus, unspecified 01/02/2020 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[facility]) 06/12/2023 Raised antibody titer 09/25/2017 Right lower quadrant pain 11/15/2023 Right otitis externa 11/15/2023 Salivary gland swelling 11/15/2023 Single live 01/15/2020 Snoring 11/15/2023 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) 12/30/2019 Suspected severe acute respiratory syndrome coronavirus 2 (SARS-CoV-2) infection 06/12/2023 SVT (supraventricular tachycardia) ([facility]) 08/26/2019 Syncope and collapse 06/03/2018 Other bacterial infections of unspecified site 06/27/2019 Thrombocytopenia, unspecified ([facility]) 11/20/2019 Hypoglycemia 06/12/2023 Unspecified condition associated with female genital organs and menstrual cycle 05/09/2019 Unspecified ovarian cyst, right side 02/06/2019 Urinary tract infection 10/16/2019 Referred otalgia of right ear 11/19/2023 LPRD (laryngopharyngeal reflux disease) 11/19/2023 Resolved Ambulatory Problems Diagnosis Date Noted No Resolved Ambulatory Problems Past Medical History: Diagnosis Date AMA (advanced maternal age) multigravida 35+ Anemia Antiphospholipid syndrome ([facility]) Gestational diabetes Heartburn Hypothyroid ([facility]) [place] Family History Problem Relation Name Age of [...] drainage of cyst WISDOM TOOTH EXTRACTION 2007 [place] teeth Allergies Allergen Reactions Ciprofloxacin GI intolerance [...] TSH Nurse Note: Patient desires to have [place] [employer] to one. Pt was advised to [...] or undercooked meat, and stay away from [facility]. Patient has also been advised to [...] Lala Hess MA documented in this encounter [facility] 09-07-2024 Note Patient Education Infectious Disease Upper [...] to help relieve symptoms, such as: ??? Scsu-epv-xtvekqm cold medicines. ??? Cough suppressants. Coughing is [...] other clear broths. General instructions ??? Take tuxy-nps-kvyzpcb and prescription medicines only as told by [...] and water are not available, use hand manager it security. ??? Avoid touching your mouth, face, eyes, [...] stiff neck. ? (more content not included)... [facility] 09-03-2024 Miscellaneous Notes Pt notified and appt for September. She denies any further questions, needs or concerns at this time. Rachael Johnson RN No change in meds. Pt left a voicemail to inform she is approximately 5 weeks . She is asking any recommendations on med changes. Pt missed today's appt. Called and left VM to please call and schedule missed follow up MUNIRA. Fely: Please advise Rachael Johnson RN documented in this encounter [facility] 09-03-2024 Telephone encounter Note Pt notified and appt for September. She denies any further questions, needs or concerns at this time. Rachael Johnson RN [facility] 09-03-2024 Telephone encounter Note No change in meds. [facility] 09-02-2024 Telephone encounter Note Pt left a voicemail to inform she is approximately 5 weeks . She is asking any recommendations on med changes. Pt missed today's appt. Called and left VM to please call and schedule missed follow up MUNIRA. Fely: Please advise Rachael Johnson RN [facility] 08-26-2024 Telephone encounter Note Patient has an appt on 08/27/24. Would you like labs, if so place orders. Serina Dawson MA [facility] 08-26-2024 Miscellaneous Notes Patient has an appt on 08/27/24. Would you like labs, if so place orders. Serina Dawson MA documented in this encounter [facility] 08-05-2024 Evaluation + Plan note Future Scheduled [id number] 08/05/2483ZicW8m 11/04/24CT Soft Tissue Neck w/ Contrast 11/12/23 [facility] 07-24-2024 History of Present illness Narrative Reason for Appointment: Patient ID: Sanna Rendon is a 38 y.o. 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 Coagulation defect, unspecified ([facility]) 02/05/2019 Cold intolerance 11/15/2023 Deficiency of other [...] Less than 8 weeks gestation of 06/05/2019 intermediate (current) use of 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/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 02/05/2019 Migraine without aura and without status migrainosus, not intractable ([facility]) 09/12/2017 Morbid obesity ([facility]) 11/15/2023 Muscle fasciculation 08/19/2021 Nasal polyps 11/15/2023 [...] infections 01/16/2020 Pre-diabetes 11/15/2023 Primary hypercoagulable state ([facility]) 08/01/2022 Pruritus, unspecified 01/02/2020 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[facility]) 06/12/2023 Raised antibody titer 09/25/2017 Right lower quadrant pain 11/15/2023 Right otitis externa 11/15/2023 Salivary gland swelling 11/15/2023 Single live 01/15/2020 Snoring 11/15/2023 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) 12/30/2019 Suspected severe acute respiratory syndrome coronavirus 2 (SARS-CoV-2) infection 06/12/2023 SVT (supraventricular tachycardia) ([facility]) 08/26/2019 Syncope and collapse 06/03/2018 Other bacterial infections of unspecified site 06/27/2019 Thrombocytopenia, unspecified ([facility]) 11/20/2019 Hypoglycemia 06/12/2023 Unspecified condition associated with [...] drainage of cyst WISDOM TOOTH EXTRACTION 2007 [place] teeth REVIEW OF SYSTEMS Review of Systems: [...] nursing note reviewed. Exam conducted with a 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 manager present. Vitals: Estimated body mass index is [...] Wilton Herrmann DO documented in this encounter [facility] 07-08-2024 Note Patient Education Emergency Medicine Bradycardia, Adult Bradycardia is a ylsvca-odll-iddewz heartbeat. A normal resting heart rate for [...] provider. ??? Follow a heart-healthy diet. A nutrition and dietetics instructor (dietitian) can help educate you about healthy [...] liquor (44 mL). General instructions ??? Take mtsa-yog-ckolyhc and prescription medicines only as told by [...] heartbeat (palpitations). ??? (more content not included)... 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 This is open 24 hours a day. Text the Crisis Text Line at 121852. Summary Pediatric autoimmune neuropsychiatric disorders associated with [...] provider. Document Revised: 01/09/2022 Document Reviewed: 01/09/2022 [employer] Patient Education 2023 [employer]. 06/30/2024 09:20:50 Common Variable Immunodeficiency Common Variable [...] Follow these instructions at home: Medicines Take llrz-pzi-kzyvrzw and prescription medicines only as told by [...] disease. Where to find more information National [place] of Allergy and Infectious Disease: www.niaid.nih.gov Contact [...] risk for frequent or unusual infections. Take pyrx-epc-gwppkgr and prescription medicines only as told by [...] provider. Document Revised: 11/18/2021 Document Reviewed: 11/18/2021 [employer] Patient Education 2023 [employer]. 06/30/2024 09:18:06 DASH Eating Plan DASH Eating [...] Dairy Whole or 2% milk, cream, and bdfq-bcw-lqrv. Whole or full-fat cream cheese. Whole-fat or sweetened yogurt. Full-fat cheese. Nondairy creamers. Whipped toppings. Processed cheese and cheese spreads. Fats and oils Butter. Stick margarine. Lard. Shortening. Ghee. Saavedra fat. Tropical oils, such as coconut, palm kernel, or palm oil. Seasonings and condiments Onion salt, garlic salt, seasoned salt, table salt, and sea salt. Worcestershire sauce. Tartar sauce. Barbecue sauce. Teriyaki sauce. [...] more information National Heart, Lung, and Blood [place] (NHLBI): nhlbi.nih.gov [place] Heart Association (AHA): heart.org Academy of Nutrition and Dietetics: eatright.org National Kidney Foundation (NKF): kidney.org This information is not intended to replace advice given to you by your health care provider. Make sure you discuss any questions you have with your health care provider. Document Revised: 05/03/2023 Document Reviewed: 05/03/2023 [employer] Patient Education 2023 [employer]. Follow Up Care 06/25/2024 13:53:59 With:PRAVEEN RESENDEZ FAAFP, CHRIS Perez, PED Address: [address] [place] [address] [place] [address]- When:Within 2 Month(s) [facility] 06-30-2024 Note Patient Education [...] these instructions at home: Medicines ??? Take envr-bey-lksifdd and prescription medicines only as told by [...] Where to find more information ??? National [place] of Allergy and Infectious Disease: www.niaid.nih.gov Contact a health care provider if: ??? You have a fever. ??? You have any symptoms of infection such as chills, worsening cough, or severe earache. ??? You make high-pitched whistling sounds when you breathe, most often when you breathe out (wheeze). (more content not included)... [facility] 06-23-2024 History of Present illness Narrative Reason for Appointment: Patient ID: Sanna Rendon is a 38 y.o. 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 [...] Less than 8 weeks gestation of 06/05/2019 intermediate (current) use of 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/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 02/05/2019 Migraine without aura and without status migrainosus, not intractable ([facility]) 09/12/2017 Morbid obesity ([facility]) 11/15/2023 Muscle fasciculation 08/19/2021 Nasal polyps 11/15/2023 [...] infections 01/16/2020 Pre-diabetes 11/15/2023 Primary hypercoagulable state ([facility]) 08/01/2022 Pruritus, unspecified 01/02/2020 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[facility]) 06/12/2023 Raised antibody titer 09/25/2017 Right lower quadrant pain 11/15/2023 Right otitis externa 11/15/2023 Salivary gland swelling 11/15/2023 Single live 01/15/2020 Snoring 11/15/2023 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) 12/30/2019 Suspected severe acute respiratory syndrome coronavirus 2 (SARS-CoV-2) infection 06/12/2023 SVT (supraventricular tachycardia) ([facility]) 08/26/2019 Syncope and collapse 06/03/2018 Other bacterial infections of unspecified site 06/27/2019 Thrombocytopenia, unspecified ([facility]) 11/20/2019 Hypoglycemia 06/12/2023 Unspecified condition associated with female genital organs and menstrual cycle 05/09/2019 Unspecified ovarian cyst, right side 02/06/2019 Urinary tract infection 10/16/2019 Referred otalgia of right ear 11/19/2023 LPRD (laryngopharyngeal reflux disease) 11/19/2023 Resolved Ambulatory Problems Diagnosis Date Noted No Resolved Ambulatory Problems Past Medical History: Diagnosis Date AMA (advanced maternal age) multigravida 35+ Anemia Antiphospholipid syndrome ([facility]) Gestational diabetes Heartburn Hypothyroid ([facility]) Stroke ([facility]) HISTORY PAST MEDICAL HISTORY SOCIAL HISTORY Past Medical History: Diagnosis Date AMA (advanced maternal age) multigravida 35+ Anemia Antiphospholipid syndrome ([facility]) Gestational diabetes Heartburn Hypothyroid ([facility]) Stroke ([facility]) Social History Tobacco Use Smoking status: Never [...] drainage of cyst WISDOM TOOTH EXTRACTION 2007 [place] teeth REVIEW OF SYSTEMS Review of Systems: [...] nursing note reviewed. Exam conducted with a 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 manager present. Vitals: Estimated body mass index is [...] Wilton Herrmann DO documented in this encounter [facility] 06-09-2024 Hospital Discharge instructions Patient Education 06/09/2024 [...] Do not chew gum. General instructions Take juvk-vml-kxlohke and prescription medicines only as told by [...] important. Where to find more information National [place] of Dental and Craniofacial Research: www.nidcr.nih.gov Contact [...] provider. Document Revised: 11/27/2021 Document Reviewed: 11/27/2021 [employer] Patient Education 2023 [employer] Follow Up Care 06/06/2024 11:26:13 With:PRAVEEN RESENDEZ FAAFP, Penelope Tony, CHRIS, PED Address: [address] [place] [address] [facility] [place] [address]- When:Within 6 Month(s) [facility] 06-09-2024 Note Patient Education [...] not chew gum. General instructions ??? Take yyjg-ina-wzyekaa and prescription medicines only as told by [...] Where to find more information ??? National [place] of Dental and Craniofacial Research: www.nidcr.nih.gov Contact [...] provider. Document Revised: 11/27/2021 Document Reviewed: 11/27/2021 [employer] Patient Education ? 2023 [employer]. [facility] 06-02-2024 History of Present illness Narrative Reason for Appointment: Patient ID: Sanna Rendon is a 38 y.o. female who [...] affecting obstetrical care 01/08/2020 Coagulation defect, unspecified ([facility]) 02/05/2019 Cold intolerance 11/15/2023 Deficiency of other [...] Less than 8 weeks gestation of 06/05/2019 intermediate (current) use of 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/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 02/05/2019 Migraine without aura and without status migrainosus, not intractable ([facility]) 09/12/2017 Morbid obesity ([facility]) 11/15/2023 Muscle fasciculation 08/19/2021 Nasal polyps 11/15/2023 Non-smoker 11/15/2023 ENETA (obstructive sleep apnea) 11/15/2023 Other acute postprocedural pain 02/03/2019 Other general symptoms and signs 10/28/2019 Other immediate hemorrhage 01/16/2020 Other specified noninflammatory disorders of vagina 02/21/2019 Pain in joint 12/29/2016 Palpitations 08/26/2019 Paresthesia of bilateral legs 11/15/2023 Pelvic and perineal pain 02/01/2019 Personal history of urinary (tract) infections 01/16/2020 Pre-diabetes 11/15/2023 Primary hypercoagulable state ([facility]) 08/01/2022 Pruritus, unspecified 01/02/2020 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[facility]) 06/12/2023 Raised antibody titer 09/25/2017 Right lower quadrant pain 11/15/2023 Right otitis externa 11/15/2023 Salivary gland swelling 11/15/2023 Single live 01/15/2020 Snoring 11/15/2023 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) 12/30/2019 Suspected severe acute respiratory syndrome coronavirus 2 (SARS-CoV-2) infection 06/12/2023 SVT (supraventricular tachycardia) ([facility]) 08/26/2019 Syncope and collapse 06/03/2018 Other bacterial infections of unspecified site 06/27/2019 Thrombocytopenia, unspecified ([facility]) 11/20/2019 Hypoglycemia 06/12/2023 Unspecified condition associated with [...] Antiphospholipid syndrome (CMS/HCC) Gestational diabetes Heartburn Hypothyroid ([facility]) Stroke ([facility]) HISTORY PAST MEDICAL HISTORY SOCIAL HISTORY Past [...] drainage of cyst WISDOM TOOTH EXTRACTION 2007 [place] teeth REVIEW OF SYSTEMS Review of Systems: [...] nursing note reviewed. Exam conducted with a 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 manager present. Vitals: Estimated body mass index is [...] Patient had recent [place] [facility] [place] lab value was 6. Documented by Renate Vegas LPN on behalf of: Wilton Herrmann DO documented in this encounter [facility] 05-28-2024 Telephone encounter Note Triage to call with iron results [facility] 05-28-2024 Miscellaneous Notes Triage to call with iron results documented in this encounter [facility] 05-28-2024 Instructions Nathaly Florence - 05/28/2024 1:44 PM EST Triage to call iron results Continue Lovenox - patient prefers 40 mg (rather than rec 80mg) Encouraged her to reconsider Take B12 supplement in the form of a sublingual tablet RTC in 3 months Labs same day or 2-7 days prior documented in this encounter [facility] 05-28-2024 History of Present illness Narrative Images from the original note were not included. NAME: Sanna Rendon CLINIC NO.: [id number] DATE OF SERVICE: May 28, 2024 (Levon) Some elements in this clinic note that are critical to medical decision making have been carefully reviewed and included from a prior clinic note dated: January 02, 2024 (Levon) Additional Clinicians involved in Sanna Rendon's care: Drs. Herrmann, Jorge Monge, Humaira Gaviria, Dr. Boothe CC: hypercoag state. ASSESSMENT: 38 year old woman presents with a prior history of CVA in 2016 and an antiphospholipid antibody that was identified much later in 2018. These were found in [place], [place]. I don't have access to these [...] a target-like rash shortly before presenting to [facility] in 2016 with headaches and was [...] prior HPI: Updated Visit, May 28, 2024: Snana returns today for a follow up. She [...] at home. Updated Visit, January 02, 2024: Sanna returns today for a follow up. She [...] if indicated. Updated Visit, June 15, 2023: Sanna returns today with her youngest two children. She is still breast feeding. Numbness and vision changes both have subsided, she still plans to see Dr. Monge soon. When she had a stroke in [place], she had symptoms up to a month [...] and stayed on Lovenox Hgb 13.1 @ [facility] Recommended ER if persisting bleeding but she would prefer to stay on Lovenox for now. Updated Visit, July 27, 2022: Sanna returns today and has 2 of her youngest children with her. She didn't hemorrhage with her most recent delivery and has a healthy baby girl age 11 weeks. Her 3 year old son is with her too. Joints ache but perhaps related to 4 children 14- 11 weeks. Updated Visit, March 27, 2022: Sanna is 36 years old and is doing well with her current maintain on low-dose prophylactic Lovenox. Doing well overall but is having some bleeding following oral iron therapy due to constipation. May qualify for IV iron which will help her. She hemorrhaged after her last and required transfusion. 33 weeks - scheduled to be induced at 39 weeks Updated Visit, January 30, 2022: Sanna returns at 25 weeks of her current [...] She is otherwise getting along very well. Sanna Rendon is a 35-year-old woman with a [...] and at age 69. Both lived in [facility] but she was adopted. She was not able to see ID in October and will be seeing Dr. Baugh next week. Also will have her see Dr. Hamlin for her clotting disorder and make any other recommendations to optimize her treatment. Updated Visit, October 08, 2020: Telephone only Received call from pt stating she was seen in [facility] [place] for numbness in her chest, throat, and extremities, and sob which has been worsening over the last week. We arranged a telephone visit for her to review questions with me. Sanna Rendon is a 34 year old female seen for Hypercoagulable state and recent concerns and symptoms that required her to be seen at [facility] [place]. She went to the ER with Gradual worsening of breathing after progressive tingling of fingers and legs. She currently remains very fatigued even though she is sleeping well. Now recalls that before her stroke she remembers having a bull's eye rash and was seen with severe headaches in [facility] was found to have a stroke in 2016. Updated Visit, May 05, 2020: Sanna is 34 years old and returns for [...] a root canal and was sent to [facility] [place] which was negative but non-contrasted. [...] labs reviewed. Updated Visit, February 02, 2020: Sanna is 34 yo and delivered a healthy [...] consider DOAC. Initial Visit, May 19, 2019: Sanna Rendon presents today at the request of Dr. Herrmann for oncology evaluation. She is a 33 year old female who is currently on Plavix for CVA prophylaxis and is been referred for opinion regarding changing over to Lovenox due to her underlying findings of antiphospholipid antibodies. Her history goes back to January 2016 in [facility] where she had persisting headaches and slurred speech followed by lower extremity weakness. This took a few months to resolve and she is back to her normal state of being but some point in time during her her next she was seen by Dr. Humera Hyde in [place] as well and was found to have [...] which included preparing to see the patient, remx-iq-rolx patient care, completing clinical documentation, performing a medically appropriate examination, counseling and educating the patient/family/caregiver, ordering medications, tests, or procedures, independently interpreting results (not separately reported), communicating results to the patient/family/caregiver, and care coordination (not separately reported). Kristofer Calix MD, CPE Hematology and Oncology Services Provided at: [facility], [place], [place] Scribe Attestation: This note was scribed by Nathaly Florence on May 28, 2024 under the direction and supervision of Dr. Kristofer Calix. I attest that all of the information documented is correct to the best of my knowledge. Provider Attestation: I, Kristofer Calix MD, attest that all information documented by the above scribe is correct, and was supervised by me and under my direction. CC: MD Wilton Day, [address] [place] [address] Humaira Gaviria MD [address] [place] [id number] MD Cosmo Kingston MD Michael Blank, MD documented in this encounter [facility] 05-28-2024 Note HNO ID: [id number] Author: KRISTOFER CALIX MD Service: ? Author Type: Physician Type: Progress Notes Filed: 05/29/2024 09:13 Note Text: NAME: Sanna Rendon CLINIC NO.: [id number] DATE OF SERVICE: May 28, 2024 (Levon) Some elements in this clinic note that are critical to medical decision making have been carefully reviewed and included from a prior clinic note dated: January 02, 2024 (Levon) Additional Clinicians involved in Sanna Rendon's care: Jorge Mcwilliams, Humaira Gaviria, Dr. Boothe CC: hypercoag state. ASSESSMENT: 38 year old woman presents with a prior history of CVA in 2016 and an antiphospholipid antibody that was identified much later in 2018. These were found in [place], [place]. I don't have access to these [...] a target-like rash shortly before presenting to [facility] in 2016 with headaches and was [...] ___ HPI: Updated Visit, May 28, 2024: Sanna returns today for a follow up. She [...] at home. Updated Visit, January 02, 2024: Sanna returns today for a follow up. She [...] if indicated. Updated Visit, June 15, 2023: Sanna returns today with her youngest two children. She is still breast feeding. Numbness and vision changes both have subsided, she still plans to see Dr. Monge soon. When she had a stroke in [place], she had symptoms up to a month [...] feeding. Updated Visit, (more content not included)... [facility] 05-14-2024 Telephone encounter Note Pt called to inform she had a miscarriage, Sunday (05/10/24) Asking if any additional blood work was needed from out standpoint. Pt aware we will be checking her CBC for any signs of anemia and her iron studies for deficiency. She is aware if her investigator welfare or PCP request any additional testing, we can certainly draw with her appt 05/21 (will just need to fax orders). She denies any further questions needs or concerns at this time. Rachael Johnson RN Fely: YANET [facility] 05-14-2024 Miscellaneous Notes Pt called to inform she had a miscarriage, Sunday (05/10/24) Asking if any additional blood work was needed from out standpoint. Pt aware we will be checking her CBC for any signs of anemia and her iron studies for deficiency. She is aware if her investigator welfare or PCP request any additional testing, we can certainly draw with her appt 05/21 (will just need to fax orders). She denies any further questions needs or concerns at this time. Rachael Johnson RN Fely: YANET documented in this encounter [facility] 05-14-2024 Telephone encounter Note [phone] Patient called to inquire if when she will need to have HCG levels drawn and if she needed a follow up appointment in office. Patient request call back. [phone] Called patient and informed patient to have [...] at follow up appointment. PVU--Rosi Presley LPN [facility] 05-14-2024 Miscellaneous Notes [phone] Patient called to inquire if when she will need to have HCG levels drawn and if she needed a follow up appointment in office. Patient request call back. [phone] Called patient and informed patient to have [...] PVU--Rosi Presley LPN documented in this encounter [facility] 05-06-2024 History of Present illness Narrative Reason for Appointment: Patient ID: Sanna Rendon is a 38 y.o. 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 Coagulation defect, unspecified ([facility]) 02/05/2019 Cold intolerance 11/15/2023 Deficiency of other [...] Less than 8 weeks gestation of 06/05/2019 intermediate (current) use of 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/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 02/05/2019 Migraine without aura and without status migrainosus, not intractable ([facility]) 09/12/2017 Morbid obesity ([facility]) 11/15/2023 Muscle fasciculation 08/19/2021 Nasal polyps 11/15/2023 [...] infections 01/16/2020 Pre-diabetes 11/15/2023 Primary hypercoagulable state ([facility]) 08/01/2022 Pruritus, unspecified 01/02/2020 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[facility]) 06/12/2023 Raised antibody titer 09/25/2017 Right lower quadrant pain 11/15/2023 Right otitis externa 11/15/2023 Salivary gland swelling 11/15/2023 Single live 01/15/2020 Snoring 11/15/2023 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) 12/30/2019 Suspected severe acute respiratory syndrome coronavirus 2 (SARS-CoV-2) infection 06/12/2023 SVT [place]raventricular tachycardia) [place] 08/26/2019 Syncope and collapse 06/03/2018 Other bacterial infections of unspecified site 06/27/2019 Thrombocytopenia, unspecified ([facility]) 11/20/2019 Hypoglycemia 06/12/2023 Unspecified condition associated with female genital organs and menstrual cycle 05/09/2019 Unspecified ovarian cyst, right side 02/06/2019 Urinary tract infection 10/16/2019 Referred otalgia of right ear 11/19/2023 LPRD (laryngopharyngeal reflux disease) 11/19/2023 Resolved Ambulatory Problems Diagnosis Date Noted No Resolved Ambulatory Problems Past Medical History: Diagnosis Date AMA (advanced maternal age) multigravida 35+ Anemia Antiphospholipid syndrome ([facility]) Gestational diabetes Heartburn Hypothyroid ([facility]) Stroke ([facility]) HISTORY PAST MEDICAL HISTORY SOCIAL HISTORY Past Medical History: Diagnosis Date AMA (advanced maternal age) multigravida 35+ Anemia Antiphospholipid syndrome ([facility]) Gestational diabetes Heartburn Hypothyroid ([facility]) Stroke ([facility]) Social History Tobacco Use Smoking status: Never [...] drainage of cyst WISDOM TOOTH EXTRACTION 2007 [place] teeth REVIEW OF SYSTEMS Review of Systems: [...] nursing note reviewed. Exam conducted with a 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 manager present. Vitals: Estimated body mass index is [...] on 05/10/24. Patient consulted with by Dr Herrmann Orders Placed This Encounter Procedures POCT urinalysis dipstick manually resulted documented in this encounter [facility] 04-04-2024 History of Present illness Narrative Reason for Appointment: Patient ID: Sanna Rendon is a 38 y.o. female who [...] affecting obstetrical care 01/08/2020 Coagulation defect, unspecified ([facility]) 02/05/2019 Cold intolerance 11/15/2023 Deficiency of other [...] Less than 8 weeks gestation of 06/05/2019 intermediate (current) use of 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/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 02/05/2019 Migraine without aura and without status migrainosus, not intractable ([facility]) 09/12/2017 Morbid obesity ([facility]) 11/15/2023 Muscle fasciculation 08/19/2021 Nasal polyps 11/15/2023 [...] infections 01/16/2020 Pre-diabetes 11/15/2023 Primary hypercoagulable state ([facility]) 08/01/2022 Pruritus, unspecified 01/02/2020 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[facility]) 06/12/2023 Raised antibody titer 09/25/2017 Right lower quadrant pain 11/15/2023 Right otitis externa 11/15/2023 Salivary gland swelling 11/15/2023 Single live 01/15/2020 Snoring 11/15/2023 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) 12/30/2019 Suspected severe acute respiratory syndrome coronavirus 2 (SARS-CoV-2) infection 06/12/2023 SVT (supraventricular tachycardia) ([facility]) 08/26/2019 Syncope and collapse 06/03/2018 Other bacterial infections of unspecified site 06/27/2019 Thrombocytopenia, unspecified ([facility]) 11/20/2019 Hypoglycemia 06/12/2023 Unspecified condition associated with female genital organs and menstrual cycle 05/09/2019 Unspecified ovarian cyst, right side 02/06/2019 Urinary tract infection 10/16/2019 Referred otalgia of right ear 11/19/2023 LPRD (laryngopharyngeal reflux disease) 11/19/2023 Resolved Ambulatory Problems Diagnosis Date Noted No Resolved Ambulatory Problems Past Medical History: Diagnosis Date AMA (advanced maternal age) multigravida 35+ Anemia Antiphospholipid syndrome ([facility]) Gestational diabetes Heartburn Hypothyroid ([facility]) Stroke ([facility]) Family History Problem Relation Name Age of [...] drainage of cyst WISDOM TOOTH EXTRACTION 2007 [place] teeth Allergies Allergen Reactions Ciprofloxacin GI intolerance [...] or undercooked meat, and stay away from [facility]. Patient has also been advised to [...] Joseph LPN documented in this encounter [facility] 02-28-2024 Telephone encounter Note Pt aware and agreeable to plan of care. Pt denies any further questions, needs or concerns at this time. Appt verified for lab/follow up Rachael Johnson RN [facility] 02-28-2024 Miscellaneous Notes Pt aware and agreeable to plan of care. Pt denies any further questions, needs or concerns at this time. Appt verified for lab/follow up Rachael Johnson RN She can take the iron with prenatals. We should Johnathon labs as scheduled. Pt 4 weeks and inquiring if she should have Johnathon's lab work completed now or wait until scheduled appt. Pt last labs completed 01/02/24. Pt also would like to know if it is okay to take with iron? Fely: Please advise Rachael Johnson RN documented in this encounter [facility] 02-27-2024 Telephone encounter Note She can take the iron with prenatals. We should Johnathon labs as scheduled. [facility] 02-27-2024 Telephone encounter Note Pt 4 weeks and inquiring if she should have Johnathon's lab work completed now or wait until scheduled appt. Pt last labs completed 01/02/24. Pt also would like to know if it is okay to take with iron? Fely: Please advise Rachael Johnson, RN [facility] 02-05-2024 Hospital Discharge instructions Patient Education 02/05/2024 [...] condition. Follow these instructions at home: Take iblx-rry-mshblod and prescription medicines only as told by [...] and water are not available, use hand manager it security. Avoid contact with people who have cold [...] it is easier to cough up. Take dveb-rhl-dvhwbbk and prescription medicines only as told by [...] provider. Document Revised: 07/27/2022 Document Reviewed: 08/17/2021 [employer] Improved Affordable Healthcare Patient Education 2023 [employer]. Follow Up Care 02/04/2024 08:47:42 With:PRAVEEN RESENDEZ FAAFP, CHRIS Perez, PED Address: [address] [place], [place] [id number] When:Within 3 Month(s) [facility] 02-05-2024 Note Patient Education [...] Follow these instructions at home: ? Take hhgv-eaq-kznzyia and prescription medicines only as told by [...] and water are not available, use hand manager it security. ? Avoid contact with people who have [...] is easier to cough up. ? Take szmz-xpo-naayxgi and (more content not included)... [facility] 02-02-2024 Hospital Discharge instructions Follow Up Care 02/02/2024 11:19:56 With:Anni Bernstein MD, [facility], [facility] Address: [address] [place] [phone] When: only if needed [facility] 01-07-2024 Miscellaneous Notes No need for IV iron per CC'd chart from Dr. Calix. Attempt to call pt to notify. Left detailed message on, along with call back number on voicemail. Valeri Yan RN Dr Luna is requesting Triage to call Sanna with her FE results. Thank you documented in this encounter [facility] 01-07-2024 Telephone encounter Note No need for IV iron per CC'd chart from Dr. Calix. Attempt to call pt to notify. Left detailed message on, along with call back number on voicemail. Valeri Yan RN [facility] 01-02-[address] Luna is requesting Triage to call Sanna with her FE results. Thank you [facility] 01-02-2024 Instructions Nathaly Florence - 01/02/2024 2:08 PM EDT Triage to call iron results Continue Lovenox - patient prefers 40 mg (rather than rec 80mg) Encouraged her to reconsider Take B12 supplement in the form of a sublingual tablet RTC in 3 months Labs same day Vitamin D, TSH, Calcium with CMP documented in this encounter [facility] 01-02-2024 Nurse Note Patient states [...] MRI but was negative. Serina Dawson MA [facility] 01-02-2024 Nurse Note Patient states [...] Serina Dawson MA documented in this encounter [facility] 01-02-2024 History of Present illness Narrative Images from the original note were not included. NAME: Sanna Rendon CLINIC NO.: [id number] DATE OF SERVICE: January 02, 2024 (jose) Some elements in this clinic note that are critical to medical decision making have been carefully reviewed and included from a prior clinic note dated: June 15, 2023 (Levon) Additional Clinicians involved in Sanna Rendon's care: Jorge Mcwilliams, Humaira Gaviria, Dr. Boothe CC: hypercoag state. ASSESSMENT: 38 year old woman presents with a prior history of CVA in 2016 and an antiphospholipid antibody that was identified much later in 2018. These were found in [place], [place]. I don't have access to these [...] a target-like rash shortly before presenting to [facility] in 2015 with headaches and was [...] CMP HPI: Updated Visit, January 02, 2024: Sanna returns today for a follow up. She [...] if indicated. Updated Visit, June 15, 2023: Sanna returns today with her youngest two children. She is still breast feeding. Numbness and vision changes both have subsided, she still plans to see Dr. Monge soon. When she had a stroke in [place], she had symptoms up to a month [...] and stayed on Lovenox Hgb 13.1 [place] [facility] Recommended ER if persisting bleeding but she would prefer to stay on Lovenox for now. Updated Visit, July 27, 2022: Sanna returns today and has 2 of her youngest children with her. She didn't hemorrhage with her most recent delivery and has a healthy baby girl age 11 weeks. Her 3 year old son is with her too. Joints ache but perhaps related to 4 children 14- 11 weeks. Updated Visit, March 27, 2022: Sanna is 36 years old and is doing well with her current maintain on low-dose prophylactic Lovenox. Doing well overall but is having some bleeding following oral iron therapy due to constipation. May qualify for IV iron which will help her. She hemorrhaged after her last and required transfusion. 33 weeks - scheduled to be induced at 39 weeks Updated Visit, January 30, 2022: Sanna returns at 25 weeks of her current [...] She is otherwise getting along very well. Sanna Rendon is a 35-year-old woman with a [...] and at age 69. Both lived in [facility] but she was adopted. She was not able to see ID in October and will be seeing Dr. Baugh next week. Also will have her see Dr. Hamlin for her clotting disorder and make any other recommendations to optimize her treatment. Updated Visit, October 08, 2020: Telephone only Received call from pt stating she was seen in [facility] [place] for numbness in her chest, throat, and extremities, and sob which has been worsening over the last week. We arranged a telephone visit for her to review questions with me. Sanna Rendon is a 34 year old female seen for Hypercoagulable state and recent concerns and symptoms that required her to be seen at [facility]. She went to the ER with Gradual worsening of breathing after progressive tingling of fingers and legs. She currently remains very fatigued even though she is sleeping well. Now recalls that before her stroke she remembers having a bull's eye rash and was seen with severe headaches in [place], [place] - was found to have a stroke in 2016. Updated Visit, May 05, 2020: Sanna is 34 years old and returns for [...] a root canal and was sent to [facility] for MRI which was negative but non-contrasted. [...] labs reviewed. Updated Visit, February 02, 2020: Sanna is 34 yo and delivered a healthy [...] consider DOAC. Initial Visit, May 19, 2019: Sanna Rendon presents today at the request of Dr. Herrmann for oncology evaluation. She is a 33 year old female who is currently on Plavix for CVA prophylaxis and is been referred for opinion regarding changing over to Lovenox due to her underlying findings of antiphospholipid antibodies. Her history goes back to January 2016 in [facility] where she had persisting headaches and slurred speech followed by lower extremity weakness. This took a few months to resolve and she is back to her normal state of being but some point in time during her her next she was seen by Dr. Humera Hyde in [place] as well and was found to have [...] (chronic) No date: Kidney stones Comment: early 's No date: Missed menses No date: Nausea [...] which included preparing to see the patient, ywmw-yo-vxsx patient care, completing clinical documentation, performing a medically appropriate examination, counseling and educating the patient/family/caregiver, ordering medications, tests, or procedures, independently interpreting results (not separately reported), communicating results to the patient/family/caregiver, and care coordination (not separately reported). Kristofer Calix MD, CPE [facility] Provided at: [place], [place] Scribe Attestation: This note was scribed by Nathaly Florence on January 02, 2024 under the direction and supervision of Dr. Kristofer Calix. I attest that all of the information documented is correct to the best of my knowledge. Provider Attestation: I, Kristofer Calix MD, attest that all information documented by the above scribe is correct, and was supervised by me and under my direction. CC: MD Wilton Day, [address] [place] [address] Humaira Gaviria MD [address] [place] [id number] MD Cosmo Kingston MD Michael Blank, MD documented in this encounter [facility] 01-02-2024 Note HNO ID: [id number] Author: KRISTOFER CALIX MD Service: ? Author Type: Physician Type: Progress Notes Filed: 01/04/2024 12:54 Note Text: NAME: Sanna Rendon CLINIC NO.: [id number] DATE OF SERVICE: January 02, 2024 (Levon) Some elements in this clinic note that are critical to medical decision making have been carefully reviewed and included from a prior clinic note dated: June 15, 2023 (Levon) Additional Clinicians involved in Sanna Rendon's care: Drs. Herrmann, Jorge Monge, Humaira Gaviria, Dr. Boothe CC: hypercoag state. ASSESSMENT: 38 year old woman presents with a prior history of CVA in 2016 and an antiphospholipid antibody that was identified much later in 2018. These were found in [place], [place]. I don't have access to these [...] a target-like rash shortly before presenting to [facility] in 2016 with headaches and was [...] ___ HPI: Updated Visit, January 02, 2024: Sanna returns today for a follow up. She [...] if indicated. Updated Visit, June 15, 2023: Sanna returns today with her youngest two children. She is still breast feeding. Numbness and vision changes both have subsided, she still plans to see Dr. Monge soon. When she had a stroke in [place], she had symptoms up to a month [...] and stayed on Lovenox Hgb 13.1 @ [facility] Recommended ER if persisting bleeding but she would prefer to stay on Lovenox for now. Updated Visit, July 27, 2022: Sanna returns today an (more content not included)... [facility] 12-17-2023 Telephone encounter Note Pt updated and will follow up with PCP. Jacoboies further questions, needs or concerns at this time for our provider. Rachael Johnson RN [facility] 12-17-2023 Miscellaneous Notes Pt updated and will follow up with PCP. Denies further questions, needs or concerns at this time for our provider. Rachael Johnson RN No - sounds like she [...] IV Iron 11/29/23? documented in this encounter [facility] 12-17-2023 Telephone encounter Note No - sounds like she has some infectious process going on - would rec PCP. [facility] 12-17-2023 Telephone encounter Note Pt [...] possible delayed reaction to IV Iron 11/29/23? [facility] 11-29-2023 Note HNO ID: [id number] Author: BECKI GUTIERREZ RN Service: ? Author Type: Registered Nurse Type: Progress Notes Filed: 11/29/2023 16:28 Note Text: Y Y [facility] 11-29-2023 History of Present illness Narrative Y Y documented in this encounter [facility] 11-29-2023 Telephone encounter Note MARSHA Connell, treatment aware of changes. [facility] 11-29-2023 Miscellaneous Notes MARSHA Connell, treatment aware of changes. Spoke with pt. She will obtain Pepcid OTC from our retail pharmacy on arrival to take (1) 20 mg tablet. She is aware and agreeable to IV steroid for infusion as well. Rachael Johnson RN A one time dose of [...] of pepcid in . Pharm/Fely: please advise Rachael Johnson RN Hi Sanna - sometimes it depends on how quickly [...] different iron formulation. documented in this encounter [facility] 11-29-2023 Telephone encounter Note Spoke with pt. She will obtain Pepcid OTC from our retail pharmacy on arrival to take (1) 20 mg tablet. She is aware and agreeable to IV steroid for infusion as well. Rachael Johnson, MARSHA [facility] 11-29-2023 Telephone encounter Note A one time dose of dexamethasone is safe when . I added 8mg to the plan for your review. Please adjust dose if necessary. Thanks, Raissa Aly RPh [facility] Work Phone: 11-29-2023 Telephone encounter Note Famotidine is safe when . Do we want to administer the venofer slower? What rate? [place], Raissa Aly [facility] 11-29-2023 Telephone encounter Note Called and discussed with pt. She is and cannot take Benadryl. She is reluctant to take Pepcid. Attempted to call retail, infusion pharmacy and [facility], no answer, to ask safety of pepcid in . Pharm/Fely: please advise Rachael Johnson RN T [facility] 11-29-2023 Telephone encounter Note Hi Sanna - sometimes it depends on how quickly [...] have to choose a different iron formulation. T [facility] 11-15-2023 Note HNO ID: [id number] Author: JUNE LOMBARDO RN Service: ? Author Type: Registered Nurse Type: Progress Notes Filed: 11/15/2023 16:30 Note Text: Pt reports having nausea and lightheadedness this morning. She has seen her pcp regarding these symptoms and is being worked up to figure out the cause. [facility] 11-15-2023 History of Present illness Narrative Pt reports having nausea and lightheadedness this morning. She has seen her pcp regarding these symptoms and is being worked up to figure out the cause. documented in this encounter [facility] 11-15-2023 Telephone encounter Note 1st report of treatment-Non oncology regimen (Venofer) Patient holds Medicaid coverage and there is no available FA at this time. [facility] 11-15-2023 Miscellaneous Notes 1st report of treatment-Non oncology regimen (Venofer) Patient holds Medicaid coverage and there is no available FA at this time. documented in this encounter [facility] 11-09-2023 Hospital Discharge instructions Patient Education 11/09/2023 [...] your hypoglycemia. Where to find more information [employer]: www.diabetes.org National [place] of Diabetes and Digestive and Kidney Diseases: [...] provider. Document Revised: 03/17/2021 Document Reviewed: 03/17/2021 [employer] - Improved Affordable Healthcare Patient Education 2022 [employer]. 11/09/2023 15:56:06 Prediabetes Prediabetes Prediabetes is when [...] hard liquor (44 mL). General instructions Take egke-kuf-suyqjfn and prescription medicines only as told by [...] is important. Where to find more information [employer]: www.diabetes.org Academy of Nutrition and Dietetics: www.eatright.org [employer]: www.heart.org Contact a health care [...] provider. Document Revised: 07/15/2020 Document Reviewed: 07/15/2020 [employer] Improved Affordable Healthcare Patient Education 2022 [employer]. 11/09/2023 15:56:02 Palpitations Palpitations Palpitations are feelings [...] your health care provider. General instructions Take bxsy-stn-zszcepi and prescription medicines only as told by [...] provider. Document Revised: 09/07/2021 Document Reviewed: 09/07/2021 [employer] Improved Affordable Healthcare Patient Education 2022 [employer]. 11/09/2023 15:55:58 Fatigue Fatigue If you have [...] Follow these instructions at home: Medicines Take crow-lgf-hnhltuj and prescription medicines only as told by [...] the National Suicide Prevention Lifeline at or 576. This is open 24 hours a day. Text the Crisis Text Line at 376525. Summary If you have fatigue, you feel [...] Document Reviewed: 02/06/2022 Elsevier Patient Education 2022 [employer]. Follow Up Care 11/08/2023 11:31:43 With:PRAVEEN RESENDEZ FAAFP, Penelope Tony, CHRIS, PED Address: [place] [address]- When: Unknown [facility] [facility] 11-09-2023 Note Patient Education [...] health care provider. General instructions ? Take fqgv-tkl-juptlef and prescription medicines only as told by [...] provider. Document Revised: 09/07/2021 Document Reviewed: 09/07/2021 [employer] - Improved Affordable Healthcare Patient Education ? 2022 [employer]. Endocrinology Preventing Hypoglycemia Hypoglycemia occurs when the [...] hypoglycemia may not (more content not included)... [facility] 11-09-2023 History of Present illness Narrative Patient appears on the [facility] First Time Treatment List for a non-oncology treatment. No psychosocial assessment is indicated. KRISTOPHER Huerta documented in this encounter [facility] 11-06-2023 Telephone encounter Note Pt informed of Fely's message and denies any questions, needs or concerns at this time. She will call PCP for additional workup of palpitations, should the IV iron not help, or they worsen. Discussed reasons for immediate evaluation; chest pain, shortness of breath, lightheadedness, dizziness, etc. Appointments verified. Rachael Johnson RN [facility] 11-06-2023 Miscellaneous Notes Pt informed of Fely's message and denies any questions, needs or concerns at this time. She will call PCP for additional workup of palpitations, should the IV iron not help, or they worsen. Discussed reasons for immediate evaluation; chest pain, shortness of breath, lightheadedness, dizziness, etc. Appointments verified. Rachael Johnson, RN Thanks Brit - will forward to Rachael. She can still take her oral iron [...] for Iron. Roberta Haskins ----- Message from Rachael Johnson RN sent at 11/05/2023 11:53 AM EDT ----- ----- Message ----- From: Kristofer Calix MD Sent: 11/05/2023 11:33 AM EDT To: [facility] Triage Pool; [facility] Clerical Pool Perry Isidro - looks like you need Iron again. Dr. Middleton Cancel her virtual set for 11/05 and 11/19 - infuse 3 doses weekly iron and then see her in 8 weeks in person - labs same day. Thanks! documented in this encounter [facility] 11-05-2023 Telephone encounter Note Thanks Brit - will forward to Rachael. She can still take her oral iron [...] get you feeling better. Best, Dr. Middleton [facility] 11-05-2023 Telephone encounter Note Patient [...] is on a blood thinner. Roberta Haskins [facility] 11-05-2023 Telephone encounter Note Appointment tomorrow cancelled. Andres tried calling her this morning and was unable to get a hold of her. Will keep trying patient to schedule for Iron. Roberta Haskins [facility] 11-05-2023 Telephone encounter Note ----- Message from Rachael Johnson RN sent at 11/05/2023 11:53 AM EDT ----- ----- Message ----- From: Kristofer Calix MD Sent: 11/05/2023 11:33 AM EDT To: [facility] Triage Pool; [facility] Clerical Pool Perry Isidro - looks like you need Iron again. Dr. Middleton Cancel her virtual set for 11/05 and 11/19 - infuse 3 doses weekly iron and then see her in 8 weeks in person - labs same day. Thanks! T [facility] 10-23-2023 Hospital Discharge instructions Patient Education 10/23/2023 [...] specializes in ear, nose, and throat disorders (field artillery crewmember, or ENT) for more tests and treatment. [...] (rhinoplasty). Follow these instructions at home: Take wept-qtd-gmjtkrg and prescription medicines only as told by [...] specializes in ear, nose, and throat disorders (field artillery crewmember, or ENT) for more tests and treatment. This information is not intended to replace advice given to you by your health care provider. Make sure you discuss any questions you have with your health care provider. Document Revised: 12/12/2021 Document Reviewed: 12/12/2021 [employer] - Improved Affordable Healthcare Patient Education 2022 [employer] 10/23/2023 17:12:52 Nasal Polyps Nasal Polyps [...] instructions at home: Medicines Take or use vkrx-gsc-zdxjqms and prescription medicines only as told by [...] provider. Document Revised: 04/05/2022 Document Reviewed: 04/05/2022 [employer] - Improved Affordable Healthcare Patient Education 2022 [employer] 10/23/2023 17:12:52 Nasal Polypectomy Nasal Polypectomy Nasal [...] including vitamins, herbs, eye drops, creams, and nehv-ymx-qskbvfm medicines. Any problems you or family members [...] provider tells you to take them. Taking mfvd-ija-chenhml medicines, vitamins, herbs, and supplements. General instructions [...] provider. Document Revised: 04/05/2022 Document Reviewed: 04/05/2022 [employer] - Improved Affordable Healthcare Patient Education 2022 [employer]. 10/23/2023 17:12:46 BMI for Adults BMI for [...] numbers. This can be done either in [place] ([place] or metric measurements. Note that charts and online BMI calculators are available to help you find your BMI quickly and easily without having to do these calculations yourself. To calculate your BMI in [place] ([place] measurements: 1.Measure your weight in pounds [...] Centers for Disease Control and Prevention: www.cdc.gov [place] Heart Association: www.heart.org National Heart, Lung, and Blood [place]: www.nhlbi.nih.gov Summary Body mass index (BMI) is a number that is calculated from a person's weight and height. BMI may help estimate how much of a person's weight is composed of fat. BMI can help identify those who may be at higher risk for certain medical problems. BMI can be measured using [place]ijian measurements or metric measurements. BMI charts are used to identify whether you are underweight, normal weight, overweight, or obese. This information is not intended to replace advice given to you by your health care provider. Make sure you discuss any questions you have with your health care provider. Document Revised: 01/07/2020 Document Reviewed: 11/14/2019 [employer] - Improved Affordable Healthcare Patient Education 2022 [employer]. Follow Up Care 10/23/2023 08:49:41 With:Lourdes Urrutia Address: [address] [place] [address] [place], [place] [address]- When: only if needed [facility] 09-28-2023 Hospital Discharge instructions [...] Follow these instructions at home: Medicines Take dwcn-eag-qngvjuy and prescription medicines only as told by [...] Watch your condition for any changes. Take meut-qvh-bebkhtg and prescription medicines only as told by [...] provider. Document Revised: 06/04/2020 Document Reviewed: 08/25/2019 [employer] - Improved Affordable Healthcare Patient Education 2022 [employer]. Follow Up Care 09/28/2023 18:22:59 With:Penelope CASAS Address: [facility] [address], [place] [address] Business (1) When:Within 3 Day(s) [facility] 09-28-2023 Hospital Discharge instructions Patient Education [...] numbers. This can be done either in [place] ([place].S[place] or metric measurements. Note that charts and online BMI calculators are available to help you find your BMI quickly and easily without having to do these calculations yourself. To calculate your BMI in [place] ([place] measurements: 1.Measure your weight in pounds [...] Centers for Disease Control and Prevention: www.cdc.gov [place] Heart Association: www.heart.org National Heart, Lung, and Blood [place]: www.nhlbi.nih.gov Summary Body mass index (BMI) is a number that is calculated from a person's weight and height. BMI may help estimate how much of a person's weight is composed of fat. BMI can help identify those who may be at higher risk for certain medical problems. BMI can be measured using Fijian measurements or metric measurements. BMI charts are used to identify whether you are underweight, normal weight, overweight, or obese. This information is not intended to replace advice given to you by your health care provider. Make sure you discuss any questions you have with your health care provider. Document Revised: 01/07/2020 Document Reviewed: 11/14/2019 [employer] - Improved Affordable Healthcare Patient Education 2022 [employer]. 09/28/2023 18:24:42 Hypertension, Adult, Lqdp-bd-Frpt Hypertension, Adult Hypertension is another name for [...] doctor. Keep all follow-up visits. Medicines Take ypen-lml-dyrohnu and prescription medicines only as told by [...] provider. Document Revised: 02/02/2022 Document Reviewed: 02/02/2022 [employer] - Improved Affordable Healthcare Patient Education 2022 [employer]proved [employer] 09/28/2023 18:24:32 Abdominal Pain, Adult, Uwlu-pg-Kvhe Abdominal Pain, Adult Many things can cause belly (abdominal) pain. Most times, belly pain is not dangerous. Many cases of belly pain can be watched and treated at home. Sometimes, though, belly pain is serious. Your doctor will try to find the cause of your belly pain. Follow these instructions at home: Medicines Take enfh-qco-rewvmif and prescription medicines only as told by [...] your belly pain for any changes. Take gysk-zgw-hmmpiqu and prescription medicines only as told by [...] provider. Document Revised: 08/25/2019 Document Reviewed: 08/25/2019 [employer] - Improved Affordable Healthcare Patient Education 2022 [employer]. Follow Up Care 09/28/2023 16:11:11 With:Emergency room Address: When: only if needed Comments:Patient was instructed to contact emergency room for any worsening abdominal pain, concerns, or complications. [facility] 09-28-2023 Evaluation + Plan [...] Future Appointments Appointment Date:12/03/2023 12:40:00 PM Scheduled Provider:Penelope CASAS DO, FAAFP Location[facility] Appointment Type:FM Open Future Scheduled Tests Laboratory* HgbA1c 08/03/23 [facility]05-30-2024 Telephone encounter Note* Telephone Encounter - Roberta Haskins - 09/27/2023 4:38 PM EDT Attempt has been made x2 to reschedule patient. She did not have labs drawn. Roberta Haskins [facility]05-30-2024 Miscellaneous Notes* Telephone Encounter - Roberta Haskins - 09/27/2023 4:38 PM EDT Attempt has been made x2 to reschedule patient. She did not have labs drawn. Roberta Haskins [facility] History of Present illness Narrative* Kristofer Calix MD - 09/26/2023 9:11 AM EDT Did not have labs done to prep for this visit - reschedule. Kristofer Calix MD [facility] Discharge instructions Patient Education [...] health care provider or diet and nutrition and dietetics instructor (dietitian). This may include: ?Eating fewer calories. [...] provider. Document Revised: 06/12/2021 Document Reviewed: 06/12/2021 [employer] - Improved Affordable Healthcare Patient Education 2022 [employer]. Follow Up Care 02/15/2023 10:07:52 With:PRAVEEN RESENDEZ FAAFP, CHRIS Perez, PED Address: [address] [place], [place] [id number]- When:Within 4 Month(s) [facility] 04-05-2024 Evaluation + Plan note Future Scheduled Tests Laboratory* HgbA1c 08/03/23 Radiology* CT Soft Tissue Neck w/ Contrast 11/12/23 [facility] 02-22-2024 Hospital Discharge instructions [...] or if there is an kennedy for [facility]. Most glucose meters store a record of [...] mayhave. Where to find more information The [place] Diabetes Association: www.diabetes.org The Association of Diabetes [...] provider. Document Revised: 01/12/2021 Document Reviewed: 01/12/2021 [employer] - Improved Affordable Healthcare Patient Education 2022 [employer]. 06/21/2023 06:07:34 Preventing Iron Deficiency Anemia, Adult [...] iron. Foods high in vitamin C include: ?[place] fruits, such as tai, oranges, and grapefruits. [...] iron supplement is right for you. Take flhz-bdy-olcpepy and prescription medicines only as told by your health care provider. Keep all follow-up visits. Where to find more information Learn more about preventing iron deficiency from: National Heart, Lung, and Blood [place]: www.nhlbi.nih.gov [place] Society of Hematology: www.hematology.org Contact a health [...] provider. Document Revised: 05/24/2022 Document Reviewed: 05/24/2022 [employer] - Improved Affordable Healthcare Patient Education 2022 [employer]. 06/21/2023 06:07:28 BMI for Adults BMI for [...] numbers. This can be done either in [place]ijian ([place].S.) or metric measurements. Note that charts and online BMI calculators are available to help you find your BMI quickly and easily without having to do these calculations yourself. To calculate your BMI in [place]ian ([place].S.) measurements: 1.Measure your weight in pounds [...] Centers for Disease Control and Prevention: www.cdc.gov [place] Heart Association: www.heart.org National Heart, Lung, and Blood [place]: www.nhlbi.nih.gov Summary Body mass index (BMI) is a number that is calculated from a person's weight and height. BMI may help estimate how much of a person's weight is composed of fat. BMI can help identify thosewho may be at higher risk for certain medical problems. BMI can be measured using Fijian measurements or metric measurements. BMI charts are used to identify whether you are underweight, normal weight, overweight, or obese. This information is not intended to replace advice given to you by your health care provider. Make sure you discuss any questions you have with your health care provider. Document Revised: 01/07/2020 Document Reviewed: 11/14/2019 [employer] - Improved Affordable Healthcare Patient Education 2022 [employer]. Follow Up Care 06/19/2023 13:39:56 With:PRAVEEN RESENDEZ FAAFP, CHRIS Perez, PED Address: [address] [place] [address]- When: Unknown [facility] 02-20-2024 Miscellaneous Notes* Telephone Encounter - Rachael Johnson RN - 06/19/2023 1:05 PM EST Pt called back and aware of Fely's message. She is agreeable to POC and denies further needs at thistime. She will call PCP to follow up on TSH Rachael Johnson RN * Telephone Encounter - Rachael Johnson RN - 06/19/2023 12:26 PM EST MyChart message sent Rachael Johnson RN * Telephone Encounter - Rachael Johnson RN - 06/19/2023 12:23 PM EST Attempted both phone numbers. No answer/VM full Rachael Johnson RN * Telephone Encounter - Kristofer Calix MD - 06/19/2023 11:59 AM EST [...] her PCP please. * Telephone Encounter - Rachael Johnson RN - 06/18/2023 8:42 AM EST Please review labs and advise * Telephone Encounter - Roberta Haskins - 06/15/2023 2:36 PM EST Triage to call lab results Roberta Haskins [facility]* Patient Instructions* Nathaly Carney [...] TSH, Calcium with CMP [facility] Nurse Note* Serina Horton MA [...] exercise. Serina Dawson MA [facility] History of Present illness Narrative* Kristofer Calix MD - 06/15/2023 2:00 PM EST Images from the original note were not included. NAME: Sanna Rendon CLINIC NO.: [id number] DATE OF SERVICE: June 15, 2023 (Levon) Some elements in this clinic note that are critical to medical decision making have been carefully reviewed and included from a prior clinic note dated: May 31, 2023 (Levon) Additional Clinicians involved in Sanna Rendon's care: Drs. Herrmann, Jorge Monge, Humaira Gaviria, CC: hypercoag state. ASSESSMENT: 37 year old woman 25 weeks presents with a prior history of CVA in 2016 and anantiphospholipid antibody that was identified much later in 2018. These were found in [place], [place]. I don't have access to these [...] a target-like rash shortly before presenting to [facility] in 2016 with headaches and was [...] ___ HPI: Updated Visit, June 15, 2023: Sanna returns today with her youngest two children. She is still breast feeding. Numbness and vision changes both have subsided, she still plans to see Dr. Monge soon. When she hada stoke in [place], she had symptoms up to a month [...] and stayed on Lovenox Hgb 13.1 @ [facility] Recommended ER if persisting bleeding but she would prefer to stay on Lovenox for now. Updated Visit, July 27, 2022: Sanna returns today and has 2 of her youngest children with her. She didn't hemorrhage with her most recent delivery and has a healthy baby girl age 11 weeks. Her 3 year old son is with her too. Joints ache but perhaps related to 4 children 14- 11 weeks. Updated Visit, March 27, 2022: Sanna is 36 years old and is doing well with her current maintain on low-dose prophylactic Lovenox. Doing well overall but is having some bleeding following oral iron therapy due to constipation. May qualify for IV iron which will help her. She hemorrhaged after her last and required transfusion. 33 weeks - scheduled to be induced at 39 weeks Updated Visit, January 30, 2022: Sanna returns at 25 weeks of her current [...] She is otherwise getting along very well. Sanna Rendon is a 35-year-old woman with a [...] and at age 69. Both lived in [facility] but she was adopted. She was not able to see ID in October and will be seeing Dr. Baugh next week. Also will have her see Dr. Hamlin for her clotting disorder and make any other recommendations to optimize her treatment. Updated Visit, October 08, 2020: Telephone only Received call from pt stating she was seen in [facility] ER for numbness in her chest, throat, and extremities, and sob which has been worsening over the last week. We arranged a telephone visit for her toreview questions with me. Sanna Rendon is a 34 year old female seen for Hypercoagulable state and recent concerns and symptoms that required her to be seen at [facility] ER. She went to the ER with Gradual worsening of breathing after progressive tingling of fingers and legs. She currently remains very fatigued even though she is sleeping well. Now recalls that before her stroke she remembers having a bull's eye rash and was seen with severe headaches in [facility] was found to have a stroke in 2016. Updated Visit, May 05, 2020: Sanna is 34 years old and returns for [...] a root canal and was sent to [facility] for MRI which was negative but non-contrasted. [...] labs reviewed. Updated Visit, February 02, 2020: Sanna is 34 yo and delivered a healthy [...] consider DOAC. Initial Visit, May 19, 2019: Sanna Rendon presents today at the request of Dr. Herrmann for oncology evaluation. She is a 33 year old female who is currently on Plavix for CVA prophylaxis and is been referred for opinion regarding changing over to Lovenox due to her underlying findings of antiphospholipid antibodies. Her history goes back to January 2016 in [facility] where she had persisting headaches and slurred speech followed by lower extremity weakness. This took a few months to resolve and she is back to her normal state of being but some point in time during her her next she was seen by Dr. Humera Hyde in [place] as well and was found to have [...] which included preparing to see the patient, vqga-fy-thmz patient care, completing clinical documentation, performing a medically appropriate examination, counseling and educating the patient/family/caregiver, ordering medications, tests, or p rocedures, independently interpreting results (not separately reported), communicating results to the patient/family/caregiver, and care coordination (not separately reported). Kristofer Calix MD, CPE Hematology and Oncology Services Provided at: [place], [place] Scribe Attestation: This note was scribed by Nathaly Carney on June 15, 2023 under the direction and supervisionof Dr. Kristofer Calix. I attest that all of the information documented is correct to the best of my knowledge. Provider Attestation: I, Kristofer Calix MD, attest that all information documented by the above scribe is correct, and was supervised by me and under my direction. CC: MD Wilton Day, [address] [place] [address] Humaira Gaviria MD [facility] [id number] MD Cosmo Kingston MD Michael Blank, MD documented in [facility] Miscellaneous Notes* Telephone Encounter - Ebony Redding Ma - 06/11/2023 10:43 AM EST Labs for appointment on 06/15. Ebony Redding Ma documented in this [facility] Miscellaneous Notes* Telephone Encounter - [...] to check the status of this appointment. Niclo Salgado * Telephone Encounter - Valeri Moscoso - 06/06/2023 8:37 AM EST Records faxed. * Telephone Encounter - Nicol Avila - 06/04/2023 9:12 AM EST Bhavna: Information ready for you. Nicol Salgado * Telephone Encounter - Marleen Mcdonald - 06/01/2023 9:[address] Luna is referring Sanna back to see Dr. Crow Monge / Neurology / Yadi Dx: vision changes and numbness of face. Pt states that it has been a few years since she was last seen by him. [facility] [address] Bhavna, Please fax records Andres, Please follow up on this appt. Thank you documented in this [facility] History of Present illness Narrative* Kristofer Calix MD - 05/31/2023 4:30 PM EST Images from the original note were not included. NAME: Sanna Rendon CLINIC NO.: [id number] DATE OF SERVICE: May 31, 2023 (Levon) Some elements in this clinic note that are critical to medical decision making have been carefully reviewed and included from a prior clinic note dated: March 19, 2023 (Levon) Additional Clinicians involved in Sanna Rendon's care: Drs. Herrmann, oJrge Monge, Humaira Gaviria, VIRTUAL VISIT PROGRESS NOTE This is a virtual visit using [employer] Zoom Video Visit. It required patient- provider interaction for the medical decision making as documented below. I have communicated my name and active licensure. The patient's identity and physical location wereverified at the time of this visit. Either the patient or their legal dermatology sales representative has been informed of the risks and benefits of -- and alternatives to -- treatment through a remote evaluation andconsents to proceed with the evaluation remotely. CC: hypercoag state. ASSESSMENT: 37 year old woman 25 weeks presents with a prior history of CVA in 2016 and anantiphospholipid antibody that was identified much later in 2018. These were found in [place], [place]. I don't have access to these [...] a target-like rash shortly before presenting to [facility] in 2016 with headaches and was [...] and stayed on Lovenox Hgb 13.1 @ [facility] Recommended ER if persisting bleeding but she would prefer to stay on Lovenox for now. Updated Visit, July 27, 2022: Sanna returns today and has 2 of her youngest children with her. She didn't hemorrhage with her most recent delivery and has a healthy baby girl age 11 weeks. Her 3 year old son is with her too. Joints ache but perhaps related to 4 children 14- 11 weeks. Updated Visit, March 27, 2022: Sanna is 36 years old and is doing well with her current maintain on low-dose prophylactic Lovenox. Doing well overall but is having some bleeding following oral iron therapy due to constipation. May qualify for IV iron which will help her. She hemorrhaged after her last and required transfusion. 33 weeks - scheduled to be induced at 39 weeks Updated Visit, January 30, 2022: Sanna returns at 25 weeks of her current [...] She is otherwise getting along very well. Sanna Rendon is a 35-year-old woman with a [...] and at age 69. Both lived in [facility] but she was adopted. She was not able to see ID in October and will be seeing Dr. Baugh next week. Also will have her see Dr. Hamlin for her clotting disorder and make any other recommendations to optimize her treatment. Updated Visit, October 08, 2020: Telephone only Received call from pt stating [facility] [facility] for numbness in her chest, throat, and extremities, and sob which has been worsening over the last week. We arranged a telephone visit for her franci questions with me. Sanna Rendon is a 34 year old female seen for Hypercoagulable state and recent concerns and symptoms that required her to be seen at [facility]. She went to the ER with Gradual worsening of breathing after progressive tingling of fingers and legs. She currently remains very fatigued even though she is sleeping well. Now recalls that before her stroke she remembers having a bull's eye rash and was seen with severe headaches in [place], [place] - was found to have a stroke in 2016. Updated Visit, May 05, 2020: Sanna is 34 years old and returns for [...] a root canal and was sent to [facility] for [place] which was negative but non-contrasted. [...] labs reviewed. Updated Visit, February 02, 2020: Sanna is 34 yo and delivered a healthy [...] consider DOAC. Initial Visit, May 19, 2019: Sanna Rendon presents today at the request of Dr. Herrmann for oncology evaluation. She is a 33 year old female who is currently on Plavix for CVA prophylaxis and is been referred for opinion regarding changing over to Lovenox due to her underlying findings of antiphospholipid antibodies. Her history goes back to January 2016 in [facility] where she had persisting headaches and slurred speech followed by lower extremity weakness. This took a few months to resolve and she is back to her normal state of being but some point in time during her her next she was seen by Dr. Humera Hyde in [place] as well and was found to have [...] and independently interpreting results (not separately reported). Kristofer Calix MD, CPE Hematology and Oncology Services Provided at: [place], [place] CC: MD Wilton Day, [address] [place] [address] Humaira Gaviria MD [facility] [address] [facility] [id number] MD Cosmo Kingston MD Michael Blank, MD documented in this encounterSouthview [facility] Center02-01-2024 Instructions* Patient Instructions* Kristofer Calix MD - 05/31/2023 4:29 PM EST Please see Dr. Jorge Monge - for vision changes and numbness of face. Continue Lovenox - patient prefers 40 mg (rather than rec 80mg) Encouraged her to reconsider. Take B12 supplement in the form of a sublingual tablet. RTC in 2 weeks Labs same day Vitamin D, TSH, Calcium with CMP documented in this encounterSouthview Medical Center01-26-2024 Hospital Discharge instructions Patient Education [...] your ears completely after. General instructions Take kldv-jki-epswunb and prescription medicines only as told by [...] provider. Document Revised: 06/27/2021 Document Reviewed: 06/27/2021 Elsevier Patient Education 2022 [employer]. 05/25/2023 12:02:06 Dyshidrotic Eczema Dyshidrotic Eczema Dyshidrotic [...] care provider who specializes in skin conditions (product safety coordinator) tohelp diagnose and treat this condition. How [...] locks in moisture. Medicines Take and apply mesa-way-kmtpcky and prescription medicines only as told by [...] provider. Document Revised: 01/24/2021 Document Reviewed: 01/24/2021 [employer] Improved [employer] Patient Education 2022 [employer]. 05/25/2023 12:02:02 Allergies, Adult, Gklt-oq-Xdif Allergies, Adult An allergy means that your [...] instructions at home: Medicines Take or apply kkjn-ibk-ppuxcwz and prescription medicines only as told by [...] to the hospital. Summary Take or apply gaof-pat-rejhflg and prescription medicines only as told by [...] provider. Document Revised: 02/25/2020 Document Reviewed: 02/25/2020 [employer] - Improved Affordable Healthcare Patient Education 2022 [employer]. Follow Up Care 05/21/2023 12:21:27 With:PRAVEEN RESENDEZ FAAFP, CHRIS Perez, PED Address: [address] [place] [address]- When:Within 2 Month(s) [facility] 11-20-2023 History of Present illness Narrative* Kristofer Calix MD - 03/19/2023 4:45 PM EST Images from the original note were not included. NAME: Sanna Rendon CLINIC NO.: [id number] DATE OF SERVICE: March 19, 2023 (Levon) Some elements in this clinic note that are critical to medical decision making have been carefully reviewed and included from a prior clinic note dated: September 28, 2022 (Levon) Additional Clinicians involved in Sanna Rendon's care: Drs. Herrmann, Jorge Monge, Humaira Gaviria, VIRTUAL VISIT PROGRESS NOTE This is a virtual visit using Audio Visit Only. It required patient-provider interaction for the medical decision making as documented below. I have communicated my name and active licensure. The patient's identity and physical location wereverified at the time of this visit. Either the patient or their legal dermatology sales representative has been informed of the risks and benefits of -- and alternatives to -- treatment through a remote evaluation andconsents to proceed with the evaluation remotely. CC: hypercoag state. ASSESSMENT: 37 year old woman 25 weeks presents with a prior history of CVA in 2016 and anantiphospholipid antibody that was identified much later in 2018. These were found in [place], [place]. I don't have access to these [...] a target-like rash shortly before presenting to [facility] in 2016 with headaches and was [...] and stayed on Lovenox Hgb 13.1 @ [facility] Recommended ER if persisting bleeding but she would prefer to stay on Lovenox for now. Updated Visit, July 27, 2022: Sanna returns today and has 2 of her youngest children with her. She didn't hemorrhage with her most recent delivery and has a healthy baby girl age 11 weeks. Her 3 year old son is with her too. Joints ache but perhaps related to 4 children 14- 11 weeks. Updated Visit, March 27, 2022: Sanna is 36 years old and is doing well with her current maintain on low-dose prophylactic Lovenox. Doing well overall but is having some bleeding following oral iron therapy due to constipation. May qualify for IV iron which will help her. She hemorrhaged after her last and required transfusion. 33 weeks - scheduled to be induced at 39 weeks Updated Visit, January 30, 2022: Sanna returns at 25 weeks of her current [...] She is otherwise getting along very well. Sanna Rendon is a 35-year-old woman with a [...] and at age 69. Both lived in [place], [place] - but she was adopted. She was not able to see ID in October and will be seeing Dr. Baugh next week. Also will have her see Dr. Hamlin for her clotting disorder and make any other recommendations to optimize her treatment. Updated Visit, October 08, 2020: Telephone only Received call from pt stating she was seen in [facility] for numbness in her chest, throat, and extremities, and sob which has been worsening over the last week. We arranged a telephone visit for her franci questions with me. Sanna Rendon is a 34 year old female seen for Hypercoagulable state and recent concerns and symptoms that required her to be seen at [facility]. She went to the ER with Gradual worsening of breathing after progressive tingling of fingers and legs. She currently remains very fatigued even though she is sleeping well. Now recalls that before her stroke she remembers having a bull's eye rash and was seen with severe headaches in [place], [place] - was found to have a stroke in 2016. Updated Visit, May 05, 2020: Sanna is 34 years old and returns for [...] a root canal and was sent to [facility] for MRI which was negative but non-contrasted. [...] labs reviewed. Updated Visit, February 02, 2020: Sanna is 34 yo and delivered a healthy [...] consider DOAC. Initial Visit, May 19, 2019: Sanna Rendon presents today at the request of Dr. Herrmann for oncology evaluation. She is a 33 year old female who is currently on Plavix for CVA prophylaxis and is been referred for opinion regarding changing over to Lovenox due to her underlying findings of antiphospholipid antibodies. Her history goes back to January 2016 in [facility] where she had persisting headaches and slurred speech followed by lower extremity weakness. This took a few months to resolve and she is back to her normal state of being but some point in time during her her next she was seen by Dr. Humera Hyde in [place] as well and was found to have [...] and independently interpreting results (not separately reported). Kristofer Calix MD, CPE Hematology and Oncology Services Provided at: [place], [place] CC: MD Wilton Day, [address] [place] [address] Humaira Gaviria MD [address] [facility] [address] MD Cosmo Kingston MD Michael Blank, MD documented in this encounterSouthview Medical Center11-20-2023 Instructions* Patient Instructions* Kristofer Calix MD - 03/19/2023 4:44 PM EST Continue Lovenox - patient prefers 40 mg (rather than rec 80mg) Take B12 supplement in the form of a sublingual tablet. Take Vitamin D3 5000 international unit(s) daily Check labs in 8 weeks Phone / Virtual call after documented in this encounterSouthview Medical Center10-19-2023 Hospital Discharge instructions Patient Education 02/15/2023 10:13:08 Ear Drops, Adult, Gwvm-gu-Nini Ear Drops, Adult Your doctor has found [...] cannot use soap and water, use hand manager it security. 2.Make sure your ears are clean and [...] you cannot use soapand water, use hand manager it security. Follow these instructions at home: Use the [...] provider. Document Revised: 02/11/2020 Document Reviewed: 02/11/2020 [employer] - Improved Affordable Healthcare Patient Education 2022 [employer]. 02/15/2023 10:13:05 Otitis Externa, Rjoi-gt-Wdyl Otitis Externa Otitis externa is an infection [...] if you start to feel better. Take cuzf-snt-zhuqhyc and prescription medicines only as told by [...] provider. Document Revised: 06/29/2021 Document Reviewed: 06/29/2021 [employer] - Improved Affordable Healthcare Patient Education 2022 [employer]. Follow Up Care 02/14/2023 12:28:12 With:PRAVEEN RESENDEZ FAAFP, CHRIS Perez, PED Address: [address] [place] [phone]- When:Within 2 Month(s) [facility] 08-25-2023 Hospital Discharge instructions [...] including vitamins, herbs, eye drops, creams, and rkqf-wgz-zpicmpm medicines. ?Whether you are or may be [...] provider. Document Revised: 12/28/2021 Document Reviewed: 11/19/2020 Elsevier Patient Education 2022 [employer] 12/22/2022 15:19:23 Fatigue Fatigue If you have [...] Follow these instructions at home: Medicines Take sury-uwz-yfobgwi and prescription medicines only as told by [...] the National Suicide Prevention Lifeline at or 697. This is open 24 hours a day. Text the Crisis Text Line at 232871. Summary If you have fatigue, you feel [...] provider. Document Revised: 02/06/2022 Document Reviewed: 02/06/2022 [employer] - Improved Affordable Healthcare Patient Education 2022 [employer]. Follow Up Care 12/22/2022 10:22:02 With:Lourdes Urrutia Address: [address] [place] [address], [place] [address]- When: only if needed [facility] 08-25-2023 Instructions* Patient Instructions* Kristofer Calix MD - 12/22/2022 10:13 AM EDT Continue Lovenox - patient prefers 40 mg (rather than rec 80mg) Take B12 supplement in the form of a sublingual tablet. Take Vitamin D3 5000 international unit(s) daily Check labs in 8 weeks Phone / Virtual call after documented in this encounterSouthview Medical Center08-25-2023 History of Present illness Narrative* Kristofer Calix MD - 12/22/2022 9:55 AM EDT Images from the original note were not included. Kristofer Calix MD NAME: Sanna Rendon [facility] NO.: [id number] DATE OF SERVICE: December 22, 2022 (Levon) Some elements in this clinic note that are critical to medical decision making have been carefully reviewed and included from a prior clinic note dated: September 28, 2022 (Levon) Additional Clinicians involved in Sanna Rendon's care: Jorge Mcwilliams, Humaira Gaviria, VIRTUAL VISIT PROGRESS NOTE This is a virtual visit using Telephone only for 20 minutes . It required patient-provider interaction for the medical decision making as documented below. I have communicated my name and active licensure. The patient's identity and physical location wereverified at the time of this visit. Either the patient or their legal dermatology sales representative has been informed of the risks and benefits of -- and alternatives to -- treatment through a remote evaluation andconsents to proceed with the evaluation remotely. CC: hypercoag state. ASSESSMENT: 37 year old woman with a prior history of CVA in 2016 and an antiphospholipid antibody that was identified much later in 2018. These were found in [place], [place]. I don't have access to these [...] a target-like rash shortly before presenting to [facility] in 2016 with headaches and was [...] and stayed on Lovenox Hgb 13.1 @ [facility] Recommended ER if persisting bleeding but she would prefer to stay on Lovenox for now. Updated Visit, July 27, 2022: Sanna returns today and has 2 of her youngest children with her. She didn't hemorrhage with her most recent delivery and has a healthy baby girl age 11 weeks. Her 3 year old son is with her too. Joints ache but perhaps related to 4 children 14- 11 weeks. Updated Visit, March 27, 2022: Sanna is 36 years old and is doing well with her current maintain on low-dose prophylactic Lovenox. Doing well overall but is having some bleeding following oral iron therapy due to constipation. May qualify for IV iron which will help her. She hemorrhaged after her last and required transfusion. 33 weeks - scheduled to be induced at 39 weeks Updated Visit, January 30, 2022: Sanna returns at 25 weeks of her current [...] She is otherwise getting along very well. Sanna Rendon is a 35-year-old woman with a [...] and at age 69. Both lived in [facility] but she was adopted. She was not able to see ID in October and will be seeing Dr. Baugh next week. Also will have her see Dr. Hamlin for her clotting disorder and make any other recommendations to optimize her treatment. Updated Visit, October 08, 2020: Telephone only Received call from pt stating she was seen in [facility] for numbness in her chest, throat, and extremities, and sob which has been worsening over the last week. We arranged a telephone visit for her chanw questions with me. Sanna Rendon is a 34 year old female seen for Hypercoagulable state and recent concerns and symptoms that required her to be seen at [facility]. She went to the ER with Gradual worsening of breathing after progressive tingling of fingers and legs. She currently remains very fatigued even though she is sleeping well. Now recalls that before her stroke she remembers having a bull's eye rash and was seen with severe headaches in [place], [place] - was found to have a stroke in 2016. Updated Visit, May 05, 2020: Sanna is 34 years old and returns for [...] a root canal and was sent to [facility] for MRI which was negative but non-contrasted. [...] labs reviewed. Updated Visit, February 02, 2020: Sanna is 34 yo and delivered a healthy [...] consider DOAC. Initial Visit, May 19, 2019: Sanna Rendon presents today at the request of Dr. Herrmann for oncology evaluation. She is a 33 year old female who is currently on Plavix for CVA prophylaxis and is been referred for opinion regarding changing over to Lovenox due to her underlying findings of antiphospholipid antibodies. Her history goes back to January 2016 in [facility] where she had persisting headaches and slurred speech followed by lower extremity weakness. This took a few months to resolve and she is back to her normal state of being but some point in time during her her next she was seen by Dr. Humera Hyde in [place] as well and was found to have [...] via video enabled technology) No exam performed Kristofer Calix MD, CPE Hematology and Oncology Services Provided at: [place] CC: MD Wilton Day, [address] [place] [address] Humaira Gaviria MD [address] [place] [id number] MD Cosmo Kingston MD Michael Blank, MD documented in this encounterSouthview Medical Center08-16-2023 Miscellaneous Notes* Telephone Encounter - Roberta Haskins - 12/13/2022 10:25 AM EDT Patient called back and scheduled her lab appointment for Sunday. Phone follow up for these labs , 12/21. FELY: Sanna is asking if you could check her [...] later time. Roberta Haskins documented in this encounterSouthview Medical Center06-23-2023 Hospital Discharge instructions Patient Education [...] health care provider or diet and nutrition and dietetics instructor (dietitian). This may include: ?Eating fewer calories. [...] provider. Document Revised: 06/12/2021 Document Reviewed: 06/12/2021 Vital[employer] - Improved Affordable Healthcare Patient Education 2022 [employer]. 10/20/2022 10:37:18 Preventing Type 2 Diabetes Mellitus [...] a registered dietitian. This diet and nutrition and dietetics instructor can help you make a healthy eating plan and help you understand portion sizes and food labels. Where to find support Ask your health care provider to recommend a registered dietitian, a certified diabetes care and special education instructor, or a weight loss program. Look for local or online weight loss groups. Join a gym, fitness club, or outdoor activity group, such as a walking club. Where to find more information For help and guidance and to learn more about diabetes and diabetes prevention, visit: [place] Diabetes Association (ADA): www.diabetes.org National [place] of Diabetes and Digestive and Kidney Diseases: www.niddk.nih.gov To learn more about healthy eating, visit: U.S. Department of Agriculture ([employer]): www.choosemyplate.gov Office of Disease Prevention and Health [...] provider. Document Revised: 07/11/2021 Document Reviewed: 07/11/2021 [employer] - Improved Affordable Healthcare Patient Education 2022 [employer]. 10/20/2022 10:37:17 Preventing Hypoglycemia Preventing Hypoglycemia Hypoglycemia [...] your hypoglycemia. Where to find more information [place] Diabetes Association: www.diabetes.org National [place] of Diabetes and Digestive and Kidney Diseases: [...] provider. Document Revised: 03/17/2021 Document Reviewed: 03/17/2021 Vitalbox - Improved Affordable Healthcare Patient Education 2022 [employer]. 10/20/2022 10:37:16 Gestational Diabetes Mellitus, Diagnosis, Ffjt-wj-Xinm Gestational Diabetes Mellitus, Diagnosis Gestational diabetes mellitus [...] follow-up visits. Where to find more information [place] Diabetes Association (ADA): diabetes.org Association of Diabetes Care & Education Specialists (ADCES): diabeteseducator.org Centers for Disease Control and Prevention (CDC): cdc.gov [place] Association: americanpregnancy.org U.S. Department of Agriculture MyPlate: [...] provider. Document Revised: 09/20/2020 Document Reviewed: 09/20/2020 V[employer] - Improved Affordable Healthcare Patient Education 2022 [employer]. Follow Up Care 09/19/2022 14:47:09 With:PRAVEEN RESENDEZ FAAFP, CHRIS Perez, PED Address: [address], [place] [address]- When:Within 3 Month(s) [facility] 06-01-2023 History of Present illness Narrative* Kristofer Calix MD - 09/28/2022 5:00 PM EDT Images from the original note were not included. Kristofer Calix MD NAME: Sanna Rendon CLINIC NO.: [id number] DATE OF SERVICE: September 28, 2022 (Levon) Some elements in this clinic note that are critical to medical decision making have been carefully reviewed and included from a prior clinic note dated: July 27, 2022 (Levon) Additional Clinicians involved in Sanna Rendon's care: Drs. Herrmann, Jorge Monge, Humaira Gaviria, VIRTUAL VISIT PROGRESS NOTE This is a virtual visit using Telephone only for 25 minutes . It required patient-provider interaction for the medical decision making as documented below. I have communicated my name and active licensure. The patient's identity and physical location wereverified at the time of this visit. Either the patient or their legal dermatology sales representative has been informed of the risks and benefits of -- and alternatives to -- treatment through a remote evaluation andconsents to proceed with the evaluation remotely. CC: hypercoag state. ASSESSMENT: 36 year old woman 25 weeks presents with a prior history of CVA in 2016 and anantiphospholipid antibody that was identified much later in 2018. These were found in [place], [place]. I don't have access to these [...] a target-like rash shortly before presenting to [facility] in 2016 with headaches and was [...] and stayed on Lovenox Hgb 13.1 @ [facility] Recommended ER if persisting bleeding but she would prefer to stay on Lovenox for now. Updated Visit, July 27, 2022: Sanna returns today and has 2 of her youngest children with her. She didn't hemorrhage with her most recent delivery and has a healthy baby girl age 11 weeks. Her 3 year old son is with her too. Joints ache but perhaps related to 4 children 14- 11 weeks. Updated Visit, March 27, 2022: Sanna is 36 years old and is doing well with her current maintain on low-dose prophylactic Lovenox. Doing well overall but is having some bleeding following oral iron therapy due to constipation. May qualify for IV iron which will help her. She hemorrhaged after her last and required transfusion. 33 weeks - scheduled to be induced at 39 weeks Updated Visit, January 30, 2022: Sanna returns at 25 weeks of her current [...] She is otherwise getting along very well. Sanna Rendon is a 35-year-old woman with a [...] and at age 69. Both lived in [place], [place] - but she was adopted. She was not able to see ID in October and will be seeing Dr. Baugh next week. Also will have her see Dr. Hamlin for her clotting disorder and make any other recommendations to optimize her treatment. Updated Visit, October 08, 2020: Telephone only Received call from pt stating she was seen in [facility] for numbness in her chest, throat, and extremities, and sob which has been worsening over the last week. We arranged a telephone visit for her toreview questions with me. Sanna Rendon is a 34 year old female seen for Hypercoagulable state and recent concerns and symptoms that required her to be seen at [facility]. She went to the ER with Gradual worsening of breathing after progressive tingling of fingers and legs. She currently remains very fatigued even though she is sleeping well. Now recalls that before her stroke she remembers having a bull's eye rash and was seen with severe headaches in [place], [place] - was found to have a stroke in 2016. Updated Visit, May 05, 2020: Sanna is 34 years old and returns for [...] a root canal and was sent to [facility] for MRI which was negative but non-contrasted. [...] labs reviewed. Updated Visit, February 02, 2020: Sanna is 34 yo and delivered a healthy [...] consider DOAC. Initial Visit, May 19, 2019: Sanan Rendon presents today at the request of Dr. Herrmann for oncology evaluation. She is a 33 year old female who is currently on Plavix for CVA prophylaxis and is been referred for opinion regarding changing over to Lovenox due to her underlying findings of antiphospholipid antibodies. Her history goes back to January 2016 in [facility] where she had persisting headaches and slurred speech followed by lower extremity weakness. This took a few months to resolve and she is back to her normal state of being but some point in time during her her next she was seen by Dr. Humera Hyde in [place] as well and was found to have [...] via video enabled technology) No exam performed Kristofer Calix MD, CPE Hematology and Oncology Services Provided at: [place], [place] CC: Dr. Praveen MD Wilton Spencer Herrmann, [address] [place] [address] Humaira Gaviria MD [address] [place] [address] [place] [address] MD Cosmo Kingston MD Michael Blank, MD documented in this encounterSouthview [facility] Center05-24-2023 Miscellaneous Notes* Telephone Encounter - Cheri Acharya Sec - 09/20/2022 7:06 AM EDT Cxed appt * Telephone Encounter - Valeri Yan RN - 09/19/2022 3:29 PM EDT Patient would like to have labs drawn at [facility]. Called [facility] lab to get fax number. Lab orders faxed to [phone] Valeri Yan RN PSS: Can you cancel lab appointment for 09/21/22 here. Thanks. Valeri Yan RN documented in this encounterSouthview Medical Center04-04-2023 Instructions* Patient Instructions* Kristofer Calix MD - 08/01/2022 10:56 AM EDT Continue Lovenox - patient prefers 40 mg (rather than rec 80mg) 8 weeks - labs Phone / Virtual call after documented in this encounterSouthview Medical Center03-30-2023 History of Present illness Narrative* Kristofer Calix MD - 07/27/2022 1:18 PM EDT NAME: Sanna Rendon CLINIC NO.: [id number] DATE OF SERVICE: July 27, 2022 (radhaelaina) Some elements in this clinic note that are critical to medical decision making have been carefully reviewed and included from a prior clinic note dated: March 27, 2022 (Levon) Additional Clinicians involved in Sanna Rendon's care: Drs. Herrmann, Jorge Monge, Humaira Gaviria, CC: hypercoag state. ASSESSMENT: 36 year old woman 25 weeks presents with a prior history of CVA in 2016 and anantiphospholipid antibody that was identified much later in 2018. These were found in [place], [place]. I don't have access to these [...] a target-like rash shortly before presenting to [facility] in 2016 with headaches and was [...] after HPI: Updated Visit, July 27, 2022: Sanna returns today and has 2 of her youngest children with her. She didn't hemorrhage with her most recent delivery and has a healthy baby girl age 11 weeks. Her 3 year old son is with her too. Joints ache but perhaps related to 4 children 14- 11 weeks. Updated Visit, March 27, 2022: Sanna is 36 years old and is doing well with her current maintain on low-dose prophylactic Lovenox. Doing well overall but is having some bleeding following oral iron therapy due to constipation. May qualify for IV iron which will help her. She hemorrhaged after her last and required transfusion. 33 weeks - scheduled to be induced at 39 weeks Updated Visit, January 30, 2022: Sanna returns at 25 weeks of her current [...] She is otherwise getting along very well. Sanna Rendon is a 35-year-old woman with a [...] and at age 69. Both lived in [facility] but she was adopted. She was not able to see ID in October and will be seeing Dr. Baugh next week. Also will have her see Dr. Hamlin for her clotting disorder and make any other recommendations to optimize her treatment. Updated Visit, October 08, 2020: Telephone only Received call from pt stating she was seen in [facility] for numbness in her chest, throat, and extremities, and sob which has been worsening over the last week. We arranged a telephone visit for her franci questions with me. Sanna Rendon is a 34 year old female seen for Hypercoagulable state and recent concerns and symptoms that required her to be seen at [facility]. She went to the ER with Gradual worsening of breathing after progressive tingling of fingers and legs. She currently remains very fatigued even though she is sleeping well. Now recalls that before her stroke she remembers having a bull's eye rash and was seen with severe headaches in [place], [place] - was found to have a stroke in 2016. Updated Visit, May 05, 2020: Sanna is 34 years old and returns for [...] a root canal and was sent to [facility] for MRI which was negative but non-contrasted. [...] labs reviewed. Updated Visit, February 02, 2020: Sanna is 34 yo and delivered a healthy [...] consider DOAC. Initial Visit, May 19, 2019: Sanna Rendon presents today at the request of Dr. Herrmann for oncology evaluation. She is a 33 year old female who is currently on Plavix for CVA prophylaxis and is been referred for opinion regarding changing over to Lovenox due to her underlying findings of antiphospholipid antibodies. Her history goes back to January 2016 in [facility] where she had persisting headaches and slurred speech followed by lower extremity weakness. This took a few months to resolve and she is back to her normal state of being but some point in time during her her next she was seen by Dr. Humera Hyde in [place] as well and was found to have [...] which included preparing to see the patient, knek-qz-frgt patient care, completing clinical documentation, obtaining and/or reviewing separately obtained history, performing a medically appropriate examination, counseling and educating the pat ient/family/caregiver, ordering medications, tests, or procedures, independently interpreting results (not separately reported), and care coordination (not separately reported). Kristofer Calix MD, CPE Hematology and Oncology Services Provided at: [place], [place] CC: MD Wilton Day, [address] [place] [address] Humaira Gaviria MD [address] [place] [id number] MD Cosmo Kingston MD Michael Blank, MD documented in this encounterSouthview Medical Center12-07-2022 History of Present illness Narrative* [...] to standard infusion rate. documented in this encounterSouthview Medical Center12-06-2022 Miscellaneous Notes* Telephone Encounter - Marleen Ramirez Sec - 04/04/2022 1:40 PM EST Spoke with Sanna on the phone and we were able to get her scheduled for her weekly venofer x 4 starting on 04-05. Patient then wants appts due to her OB weekly appts on Sun.'s * Telephone Encounter - Meme Gonzalez RN - 04/04/2022 1:34 PM EST Received call from pt with multiple questions regarding her upcoming IV iron appt. All questions answered. Pt transferred to supervisor front at her request so she can reschedule dates of IV iron d/t otherappts. FELY: Pt would like to have Venofer ordered and not get Monoferric even if approved. Please place orders if agreeable. Meme Gonzalez RN documented in this encounterSouthview Medical Center12-01-2022 Miscellaneous Notes* Telephone Encounter - Roberta Haskins [...] from the original note were not included. Kristofer Calix MD [facility] Triage Pool; [facility] Clerical Pool She needs iron MUNIRA - if monoferric isn't approved, lets get her in weekly for Venna for. * Telephone Encounter - Roberta Haskins - 03/27/2022 2:57 PM EST 2. Consider IV iron a. Triage nurse to please call iron results when available this week documented in this encounterSouthview Medical Center11-28-2022 Instructions* Patient Instructions* Kristofer Calix MD - 03/27/2022 2:51 PM EST Continue Lovenox - patient prefers 40 mg (rather than rec 80mg) Consider IV iron Triage nurse to please call iron results when available this week Will recheck antiphospholipid antibodies as ordered and every 6 months. RTC in 8 weeks - labs same day. documented in this encounterSouthview Medical Center11-28-2022 History of Present illness Narrative* Kristofer Calix MD - 03/27/2022 2:15 PM EST Images from the original note were not included. NAME: Sanna Rendon CLINIC NO.: [id number] DATE OF SERVICE: March 27, 2022 (Abhyjose) Some elements in this clinic note that are critical to medical decision making have been carefully reviewed and included from a prior clinic note dated: January 30, 2022 (Levon) Additional Clinicians involved in Sanna Rendon's care: Drs. Herrmann, Jorge Monge, Humaira Gaviria, CC: hypercoag state. ASSESSMENT: 36 year old woman 25 weeks presents with a prior history of CVA in 2016 and anantiphospholipid antibody that was identified much later in 2018. These were found in [place], [place]. I don't have access to these [...] a target-like rash shortly before presenting to [facility] in 2016 with headaches and was [...] day. HPI: Updated Visit, March 27, 2022: Sanna is 36 years old and is doing well with her current maintain on low-dose prophylactic Lovenox. Doing well overall but is having some bleeding following oral iron therapy due to constipation. May qualify for IV iron which will help her. She hemorrhaged after her last and required transfusion. 33 weeks - scheduled to be induced at 39 weeks Updated Visit, January 30, 2022: Sanna returns at 25 weeks of her current [...] She is otherwise getting along very well. Sanna Rendon is a 35-year-old woman with a [...] and at age 69. Both lived in [facility] but she was adopted. She was not able to see ID in October and will be seeing Dr. Baugh next week. Also will have her see Dr. Hamlin for her clotting disorder and make any other recommendations to optimize her treatment. Updated Visit, October 08, 2020: Telephone only Received call from pt stating she was seen in [facility] for numbness in her chest, throat, and extremities, and sob which has been worsening over the last week. We arranged a telephone visit for her chanw questions with me. Sanna Rendon is a 34 year old female seen for Hypercoagulable state and recent concerns and symptoms that required her to be seen at [facility]. She went to the ER with Gradual worsening of breathing after progressive tingling of fingers and legs. She currently remains very fatigued even though she is sleeping well. Now recalls that before her stroke she remembers having a bull's eye rash and was seen with severe headaches in [facility] was found to have a stroke in 2016. Updated Visit, May 05, 2020: Sanna is 34 years old and returns for [...] a root canal and was sent to [facility] for MRI which was negative but non-contrasted. [...] labs reviewed. Updated Visit, February 02, 2020: Sanna is 34 yo and delivered a healthy [...] consider DOAC. Initial Visit, May 19, 2019: Sanna Rendon presents today at the request of Dr. Herrmann for oncology evaluation. She is a 33 year old female who is currently on Plavix for CVA prophylaxis and is been referred for opinion regarding changing over to Lovenox due to her underlying findings of antiphospholipid antibodies. Her history goes back to January 2016 in [facility] where she had persisting headaches and slurred speech followed by lower extremity weakness. This took a few months to resolve and she is back to her normal state of being but some point in time during her her next she was seen by Dr. Humera Hyde in [place] as well and was found to have [...] which included preparing to see the patient, syvb-mc-qgvg patient care, completing clinical documentation, obtaining and/or reviewing separately obtained history, performing a medically appropriate examination, counseling and educating the pat ient/family/caregiver, ordering medications, tests, or procedures, independently interpreting results (not separately reported), and care coordination (not separately reported). Kristofer Calix MD, CPE Hematology and Oncology Services Provided at: [place], [place] CC: MD Wilton Day, [address] [place] [address] Humaira Gaviria MD [address] [facility] [place] [address] MD Cosmo Kingston MD Michael Blank, MD documented in this encounterSouthview Medical Center10-03-2022 Instructions* Patient Instructions* Kristofer Calix MD - 01/30/2022 12:[address] Hamlin's expertise and will prescribe Lovenox - patient prefers 40 mg (rather than rec 80mg) Will recheck antiphospholipid antibodies as ordered and every 6 months. RTC in 8 weeks - labs same day. documented in this encounterSouthview Medical Center10-03-2022 History of Present illness Narrative* Kristofer Calix MD - 01/30/2022 11:59 AM EDT Images from the original note were not included. NAME: Sanna Rendon CLINIC NO.: [id number] DATE OF SERVICE: January 30, 2022 Some elements in this clinic note that are critical to medical decision making have been carefully reviewed and included from a prior clinic note dated: August 01, 2021 Additional Clinicians involved in Sanna Rendon's care: Drs. Herrmann, Jorge Monge, Humaira Gaviria, CC: hypercoag state. ASSESSMENT: 36 year old woman 25 weeks presents with a prior history of CVA in 2016 and anantiphospholipid antibody that was identified much later in 2018. These were found in [place], [place]. I don't have access to these [...] a target-like rash shortly before presenting to [facility] in 2016 with headaches and was [...] day. HPI: Updated Visit, January 30, 2022: Sanna returns at 25 weeks of her current [...] She is otherwise getting along very well. Sanna Rendon is a 35-year-old woman with a [...] and at age 69. Both lived in [facility] but she was adopted. She was not able to see ID in October and will be seeing Dr. Baugh next week. Also will have her see Dr. Hamlin for her clotting disorder and make any other recommendations to optimize her treatment. Updated Visit, October 08, 2020: Telephone only Received call from pt stating she was seen in [facility] for numbness in her chest, throat, and extremities, and sob which has been worsening over the last week. We arranged a telephone visit for her toreview questions with me. Sanna Rendon is a 34 year old female seen for Hypercoagulable state and recent concerns and symptoms that required her to be seen at [facility]. She went to the ER with Gradual worsening of breathing after progressive tingling of fingers and legs. She currently remains very fatigued even though she is sleeping well. Now recalls that before her stroke she remembers having a bull's eye rash and was seen with severe headaches in [place], [place] - was found to have a stroke in 2016. Updated Visit, May 05, 2020: Sanna is 34 years old and returns for [...] a root canal and was sent to [facility] for MRI which was negative but non-contrasted. [...] labs reviewed. Updated Visit, February 02, 2020: Sanna is 34 yo and delivered a healthy [...] consider DOAC. Initial Visit, May 19, 2019: Sanna Rendon presents today at the request of Dr. Herrmann for oncology evaluation. She is a 33 year old female who is currently on Plavix for CVA prophylaxis and is been referred for opinion regarding changing over to Lovenox due to her underlying findings of antiphospholipid antibodies. Her history goes back to January 2016 in [facility] where she had persisting headaches and slurred speech followed by lower extremity weakness. This took a few months to resolve and she is back to her normal state of being but some point in time during her her next she was seen by Dr. Humera Hyde in [place] as well and was found to have [...] which included preparing to see the patient, rmmm-dr-wssr patient care, completing clinical documentation, obtaining and/or reviewing separately obtained history, performing a medically appropriate examination, counseling and educating the pat ient/family/caregiver, and ordering medications, tests, or procedures. Kristofer Calix MD, CPE [facility] [place], [place] CC: MD Wilton Day, DO [address] [place] [address] [place] [address] Humaira Gaviria MD [address] [place] [address] [place] [address] MD Cosmo Kingston MD Michael Blank, MD documented in this encounterSouthview Medical Center10-03-2022 Nurse Note* Serina Dawson MA - 01/30/2022 11:55 AM EDT Patient states she may be diagnosed with gestational diabetes, she was from 215 to 52 a couple hours later after eating wheat cereal. She sees OB tomorrow. Serina Dawson MA documented in this [facility]09-02-2022 Miscellaneous Notes* Telephone Encounter - Tonja Pope RN - 12/30/2021 10:15 AM EDT Call received from Sanna requesting refill of Lovenox 40 mg to be sent to [facility] in [place]. FELY: Please review and approve if you agree. Tonja Chery RN documented in this [facility]06-13-2022 Miscellaneous Notes* Telephone Encounter - Meme Easton RN - 10/10/2021 12:15 PM EDT Received call from pt requesting refill of Lovenox 40 mg to be sent to [facility] in [place]. FELY: Pt also states she had one episode of blood in her stool which was dripping blood which concerned her. She is not ready to move to 80 mg of Lovenox at this time. Order pending. Please review and sign if agreeable. Meme Easton RN documented in this encounterSouthview Medical Center05-10-2022 Miscellaneous Notes* Telephone Encounter - Kristofer Calix MD - 09/06/2021 8:29 PM EDT Juan Antonio - Dr. Hamlin's message was a little [...] agreeable. Meme Easton RN documented in this encounterSouthview Medical Center05-09-2022 Miscellaneous Notes* Telephone Encounter - Meme Easton RN - 09/05/2021 11:07 AM EDT Call placed to pt. No answer. Left message informing pt of Dr Luna's response and to return call if any questions/concerns. Meme Easton RN * Telephone Encounter - Kristofer Calix MD - 09/02/2021 4:07 PM EDT [...] advise. Meme Easton RN documented in this encounterSouthview Medical Center04-25-2022 Miscellaneous Notes* Telephone Encounter - Meme Easton RN - 08/22/2021 2:07 PM EDT Informed pt of Dr Luna's response. Answered all pt's questions. Pt verbalized understanding and denies further needs at this time. Meme Easton RN * Telephone Encounter - Kristofer Calix MD - 08/22/2021 12:31 PM EDT [...] Thoughts? Meme Easton RN documented in this encounterSouthview Medical Center04-22-2022 Hospital Discharge instructions Patient Education [...] including vitamins, herbs, eye drops, creams, and eugu-glw-uyddmsd medicines. ?Whether you are or may be [...] 02/11/2008 Document Revised: 08/05/2019 Document Reviewed: 02/18/2018 [employer] Patient Education 2020 [employer]. 08/19/2021 13:02:21 Dysuria Dysuria Dysuria is pain [...] alcohol may irritate the prostate. Medicines Take dkzx-qyh-izukoya and prescription medicines only as told by [...] 01/12/2005 Document Revised: 03/29/2018 Document Reviewed: 01/31/2018 [employer] Patient Education 2020 [employer]. 08/19/2021 13:02:17 Budget-Friendly Healthy Eating Budget-Friendly Healthy [...] frozen fruits, and frozen vegetables. Avoid buying skhox-fy-oob foods, such as pre-cut fruits and vegetables and pre-made salads. If possible, shop around to discover where you can find the best prices. Consider other retailers such as dollar stores, larger wholesale stores, local fruit and vegetable [employer], and [employer] markets. Do not shop when you are [...] 12/18/2014 Document Revised: 04/17/2018 Document Reviewed: 04/17/2018 [employer] Patient Education 2020 [employer] 08/19/2021 13:02:15 BMI for Adults BMI for [...] height. This can be done either in Fijian ([place] or metric measurements. Note that charts are available to help you find your BMI quickly and easily without having to do these calculations yourself. To calculate your BMI in [place]ian ([place] measurements, your health care provider will: [...] medical problems. BMI can be measured using Fijian measurements or metric measurements. To interpret your [...] 12/26/2004 Document Revised: 03/29/2018 Document Reviewed: 02/27/2018 [employer] Patient Education 2020 [employer] 08/19/2021 13:02:11 Paresthesia Paresthesia Paresthesia is an [...] fried or sweet foods. General instructions Take xnxe-gql-ermeaxf and prescription medicines only as told by [...] 04/06/2003 Document Revised: 05/12/2019 Document Reviewed: 04/25/2018 [employer] Patient Education 2020 [employer]. Follow Up Care 08/19/2021 09:17:52 With:PRAVEEN RESENDEZ FAAFP, CHRIS Perez, PED Address: [address], [place] [address]- When:1 to 2 weeks [facility] [place] 04-22-2022 Evaluation + Plan note Future Scheduled Tests Radiology* XR Spine Lumbosacral Minimum 4 Views 08/19/21 [facility]04-07-2022 Miscellaneous Notes* Telephone Encounter - Roberta Haskins - 08/04/2021 3:36 PM EDT Patient is scheduled for 09/[address] Elliott. Roberta Haskins * Telephone Encounter - Roberta Haskins - 08/01/2021 1:05 PM EDT Sent Email to [facility] to refer patient back to Dr. Cosmo Elliott Dx: Primary hypercoagulable state (HCC) Roberta Haskins documented in this encounterSouthview Medical Center04-04-2022 Nurse Note* Ebony Redding Ma - 08/01/2021 12:48 PM EDT UA ran as ordered. Ebony Redding Ma documented in this encounterSouthview Medical Center03-28-2020 Evaluation + Plan note Future Appointments Appointment Date:07/25/2024 02:30:00 PM Scheduled Provider: Location[facility] Appointment Type:CV EKG (FT) Appointment Date:07/25/2024 03:00:00 PM Scheduled Provider: Location[facility] Appointment Type:CV Holter/Event (FT) Appointment Date:09/09/2024 08:20:00 AM Scheduled Provider:Penelope CASAS DO, FAAFP Location:[facility] Appointment Type:FM Open Future Scheduled Tests Laboratory* HgbA1c 08/05/24 * HgbA1c 11/04/24 Radiology* CT Soft Tissue Neck w/ Contrast 11/12/23 [facility] [id number] Evaluation + Plan note Future Appointments Appointment Date:07/25/2024 02:30:00 PM Scheduled Provider: Location[facility] Appointment Type:CV EKG (FT) Appointment Date:07/25/2024 03:00:00 PM Scheduled Provider: Location[facility] Appointment Type:CV Holter/Event (FT) Appointment Date:09/09/2024 08:20:00 AM Scheduled Provider:Penelope CASAS DO, FAAFP Location:[facility] Appointment Type:FM Open Diagnostic Tests Pending * Hepatitis B Surface Antigen 07/09/24 * HCV Antibody RFX to Quant PCR 07/09/24 * Hep Be Ag 07/09/24 * HIV Screen 4th Generation wRfx 07/09/24 Future Scheduled Tests Laboratory* HgbA1c 08/05/24 * HgbA1c 11/04/24 Radiology* CT Soft Tissue Neck w/ Contrast 11/12/23 [facility] Evaluation + Plan note Future Appointments Appointment Date:11/08/2021 12:40:00 PM Scheduled Provider:Penelope CASAS DO, FAAFP Location:[facility] Appointment Type:FM Open Future Scheduled Tests Radiology* XR Spine Lumbosacral Minimum 4 Views 08/19/21 [facility] [place] Evaluation + Plan note Future Appointments Appointment Date:11/08/2021 12:40:00 PM Scheduled Provider:Penelope CASAS DO, FAAFP Location:[facility] Appointment Type:FM Open Diagnostic Tests Pending * Urine Culture 08/19/21 Future Scheduled Tests Radiology* XR Spine Lumbosacral Minimum 4 Views [facility]ments Appointment Date:09/21/2022 10:00:00 AM Scheduled Provider:Penelope CASAS DO, FAAFP [facility] Future App[facility]ments Appointment Date:10/20/2022 09:40:00 AM Scheduled Provider:Penelope CASAS DO, FAAFP Location:[facility] Future Appointments Appointment Date:01/26/2023 10:40:00 AM Scheduled Provider:Penelope CASAS DO, FAAFP Location:[facility] Appointment Type:[facility] Evaluation + Plan note Future Appointments Appointment Date:04/17/2023 02:20:00 PM Scheduled Provider:Penelope CASAS DO, FAAFP Location:[facility] Appointment Type: Open Future Scheduled Tests Laboratory* HgbA1c 02/15/23 * Thyroid Stimulating Hormone 02/15/23 * Thyroid Stimulating Hormone 01/11/23 [facility] Evaluation + Plan note Future Appointments Appointment Date:07/24/2023 01:20:00 PM Scheduled Provider:Penelope CASAS DO, FAAFP Location:[facility] Appointment Type: Open Future Scheduled Tests Laboratory* HgbA1c 02/15/23 * Thyroid Stimulating Hormone [facility]23 [facility] Plan note Future Appointments Appointment Date:07/24/2023 01:20:00 PM Scheduled Provider:Penelope CASAS DO, FAAFP Location:[facility] Appointment Type:[facility] Primary Care evaluation + Plan note Future Appointments Appointment Date:12/03/2023 12:40:00 PM Scheduled Provider:Penelope CASAS DO, FAAFP Location:[facility] Appointment Type: Open Future Scheduled Tests Laboratory* HgbA1c 08/03/23 [facility] Primary Care evaluation + Plan note Future Appointments Appointment Date:12/03/2023 12:40:00 PM Scheduled Provider:Penelope CASAS DO, FAAFP Location:[facility] Appointment Type:FM Open Future Scheduled Tests Laboratory* Sedimentation Rate Automated 11/09/23 * HgbA1c 08/03/23 * Amylase Level 11/09/23 * Cortisol 11/09/23 * C-Reactive Protein 11/09/23 * T3 Free 11/09/23 * Thyroid Stimulating Hormone 11/09/23 * Free T4 11/09/23 * Vitamin B12 Level 11/09/23 Radiology* MRI Brain w/o Contrast 11/09/23 * MRI Orbit Face Neck w/o contrast 11/09/23 [facility] Primary Care Evaluation + Plan note Future Appointments Appointment Date:01/11/2024 08:15:00 PM Scheduled Provider: Location:.SLEEP LAB_ Appointment Type:[facility] [employer]PER[employer] Sleep Study PSG () Appointment Date:01/29/2024 01:20:00 PM Scheduled Provider:Penelope CASAS DO, FAAFP Location:[facility] Appointment Type:FM Open Diagnostic Tests Pending * Cortisol 12/06/23 * T3 Free 12/06/23 Future Scheduled Tests Laboratory* HgbA1c 08/03/23 Radiology* CT Soft Tissue Neck w/ Contrast 11/12/23 [facility] evaluation + Plan note Future Appointments Appointment Date:05/16/2024 11:40:00 AM Scheduled Provider:Penelope CASAS DO, FAAFP Location:[facility] Appointment Type:FM Open Future Scheduled Tests Laboratory* HgbA1c 02/05/24 * HgbA1c 05/07/24 * HgbA1c 08/05/24 * HgbA1c 11/04/24 * HgbA1c 08/03/23 * HIV Screen 4th Generation wRfx 02/05/24 * HIV Screen 4th Generation wRfx 02/05/24 * Lipid Panel 02/05/24 Radiology* CT Soft Tissue Neck w/ Contrast 11/12/23 [facility] Primary Care Evaluation + Plan note Future Appointments Appointment Date:05/16/2024 11:40:00 AM Scheduled Provider:Penelope CASAS DO, FAAFP Location:[facility] Appointment Type:FM Open Future Scheduled Tests Laboratory* HgbA1c 05/07/24 * HgbA1c 08/05/24 * HgbA1c 11/04/24 Radiology* CT Soft Tissue Neck w/ Contrast 11/12/23 [facility] evaluation + Plan note Future Appointments Appointment Date:05/16/2024 11:40:00 AM Scheduled Provider:Penelope CASAS DO, FAAFP Location:[facility] Appointment Type:FM Open Diagnostic Tests Pending * HIV Screen 4th Generation wRfx 02/23/24 Future Scheduled Tests Laboratory* HgbA1c 05/07/24 * HgbA1c 08/05/24 * HgbA1c 11/04/24 Radiology* CT Soft Tissue Neck w/ Contrast 11/12/23 [facility] evaluation + Plan note Future Appointments Appointment Date:05/16/2024 11:40:00 AM Scheduled Provider:Penelope CASAS DO, FAAFP Location:[facility] Appointment Type:FM Open Future Scheduled Tests Laboratory* HgbA1c 08/05/24 * HgbA1c 11/04/24 Radiology* CT Soft Tissue Neck w/ Contrast 11/12/23 [facility] evaluation + Plan note Future Appointments Appointment Date:05/16/2024 11:40:00 AM Scheduled Provider:Penelope CASAS DO, FAAFP Location:[facility] Appointment Type:FM Open Diagnostic Tests Pending * Urine Culture 03/01/24 Future Scheduled Tests Laboratory* HgbA1c 08/05/24 * HgbA1c 11/04/24 Radiology* CT Soft Tissue Neck w/ Contrast 11/12/23 [facility] evaluation + Plan note Future Appointments Appointment Date:07/07/2024 02:20:00 PM Scheduled Provider:Penelope CASAS DO, FAAFP Location:[facility] Appointment Type:FM Open Future Scheduled Tests Laboratory* HgbA1c 4/8/25 * HgbA1c 11/04/24 Radiology* CT Soft Tissue Neck w/ Contrast 11/12/23 [facility] Primary Care Evaluation + Plan note Future Appointments Appointment Date:09/09/2024 08:20:00 AM Scheduled Provider:Penelope CASAS DO, FAAFP Location:[facility] Appointment Type: Open Future Scheduled Tests Laboratory* HgbA1c 08/05/24 * HgbA1c 11/04/24 Radiology* CT Soft Tissue Neck w/ Contrast 11/12/23 [facility] Primary Care Evaluation note* Diagnosis Infective urethritis- Primary Urethritis, unspecified [facility] [...] Anemia, unspecified type [facility] Diagnosis Iron deficiency anemia secondary to blood loss (chronic) Iron deficiency anemia of Anemia of mother, complicating , childbirth, or the puerperium, unspecified as to episode of care [facility] 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 Iron deficiency anemia of Anemia of mother, complicating , childbirth, or the puerperium, unspecified as to episode of care [facility] Diagnosis Primary hypercoagulable state (HCC) Primary hypercoagulable state CVA, old, speech/language deficit Speech and language deficit, unspecified, 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 Hyposmolality and/or hyponatremia [facility] 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 Iron deficiency anemia of Anemia of mother, complicating , childbirth, or the puerperium, unspecified as to episode of care [facility] Diagnosis Primary hypercoagulable state (HCC) Primary hypercoagulable state CVA, old, speech/language deficit Speech and language deficit, unspecified, 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 Hyposmolality and/or hyponatremia [facility]* Diagnosis Primary hypercoagulable state (HCC)- Primary Primary hypercoagulable state 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, old, speech/language deficit Speech and language deficit, unspecified, late effect of cerebrovascular disease [facility] Diagnosis Primary hypercoagulable state (HCC) Primary hypercoagulable state CVA, old, speech/language deficit Speech and language deficit, unspecified, 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 Hyposmolality and/or hyponatremia [facility]* Diagnosis Primary hypercoagulable state (HCC)- Primary Primary hypercoagulable state Iron deficiency anemia of Anemia of mother, complicating , childbirth, or the puerperium, unspecified as to episode of care Iron deficiency anemia secondary to blood loss (chronic) Vitamin D deficiency Unspecified vitamin D deficiency [facility]* Diagnosis Primary hypercoagulable state (HCC)- Primary Primary hypercoagulable state Iron deficiency anemia secondary to blood loss (chronic) Vitamin D deficiency Unspecified vitamin D deficiency CVA, old, speech/language deficit Speech and language deficit, unspecified, late effect of cerebrovascular disease Antiphospholipid antibody syndrome (HCC) Primary hypercoagulable state [facility]* Diagnosis Primary hypercoagulable state (HCC)- Primary Primary hypercoagulable state CVA, old, speech/language deficit Speech and language deficit, unspecified, late effect of cerebrovascular disease Hypercalcemia Vitamin D deficiency Unspecified vitamin D deficiency Iron deficiency anemia secondary to blood loss (chronic) Malaise and fatigue Other malaise and fatigue [facility] Diagnosis Vitamin D deficiency- Primary Unspecified vitamin D deficiency 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) Antiphospholipid antibody syndrome (HCC) Primary hypercoagulable state Malaise and fatigue Other malaise and fatigue [facility]* Diagnosis Vitamin D deficiency- Primary Unspecified vitamin D deficiency 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) [facility]* 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 [facility]* Diagnosis Iron deficiency anemia of - Primary Anemia of mother, complicating , childbirth, or the puerperium, unspecified as to episode of care Iron deficiency anemia secondary to blood loss (chronic) [facility]* Diagnosis Iron deficiency anemia of - Primary Anemia of mother, complicating , childbirth, or the puerperium, unspecified as to episode of care Iron deficiency anemia secondary to blood loss (chronic) [facility]* 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 Vitamin D deficiency Unspecified vitamin D deficiency Malaise and fatigue Other malaise and fatigue [facility]* Diagnosis Primary hypercoagulable state (HCC) Primary hypercoagulable state CVA, old, speech/language deficit Speech and language deficit, unspecified, 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 Hyposmolality and/or hyponatremia [facility]* Diagnosis Missed menses , unspecified gestational age Encounter for supervision of normal first in first trimester Hypothyroidism (acquired) ([facility]/HCC) Unspecified hypothyroidism Low vitamin D level documented in this encounter [facility]* Diagnosis 14 weeks gestation of Second trimester state, incidental Confirm viability with history of miscarriage, ultrasound Encounter for routine screening for malformation using ultrasonics documented in this encounter 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 HealthcareEvaluation note* Diagnosis Vaginal bleeding Other specified noninflammatory disorder of vagina Dizziness Dizziness and giddiness Abnormal TSH Vaginal discharge Leukorrhea, not specified as infective Pelvic pain in female Unspecified symptom associated with female genital organs documented in this encounter [facility] HealthcareEvaluation note* Diagnosis Irregular menstrual cycle documented in this encounter [facility] HealthcareEvaluation note* Diagnosis Primary hypercoagulable state (HCC) Primary hypercoagulable state CVA, old, speech/language deficit Speech and language deficit, unspecified, 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 Hyposmolality and/or hyponatremia [facility]* Diagnosis Antiphospholipid antibody positive- Primary Other and unspecified nonspecific immunological findings Iron deficiency anemia secondary to blood loss (chronic) Malaise and fatigue Other malaise and fatigue Vitamin D deficiency Unspecified vitamin D deficiency [facility]* Diagnosis Amenorrhea Absence of menstruation Missed menses , unspecified gestational age Encounter for supervision of normal first in first trimester Thyroid disease (CMS/HCC) Unspecified disorder of thyroid [facility] Diagnosis Gestational diabetes mellitus (GDM), antepartum, gestational diabetes method of control unspecified- Primary documented in this encounter [facility]* Diagnosis Primary hypercoagulable state (HCC) Primary hypercoagulable state CVA, old, speech/language deficit Speech and language deficit, unspecified, 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 Hyposmolality and/or hyponatremia [facility]* Diagnosis Primary hypercoagulable state (HCC)- Primary Primary hypercoagulable state CVA, old, speech/language deficit Speech and language deficit, unspecified, 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 Hyposmolality and/or hyponatremia Personal history of TIA (transient ischemic attack) Transient ischemic attack (TIA), and cerebral infarction without residual deficits [facility] Diagnosis Second trimester (HHS-HCC) state, incidental 13 weeks gestation of (HHS-HCC) Thyroid disease Unspecified disorder of thyroid Multigravida of advanced maternal age in second trimester (HHS-HCC) Gestational diabetes mellitus (GDM), antepartum, gestational diabetes method of control unspecified (HHS-HCC) Elevated glucose tolerance test Impaired glucose tolerance test documented in this encounter [facility] HealthcareEvaluation note* Diagnosis Gestational diabetes mellitus (GDM), antepartum, gestational diabetes method of control unspecified- Primary [facility] Diagnosis Second trimester (HHS-HCC) state, incidental 16 weeks gestation of (HHS-HCC) Screening, , for anatomic survey ([facility]) Encounter for anatomic survey Vaginal discharge Leukorrhea, not specified as infective Sinus headache Headache documented in this encounter [facility] HealthcareEvaluation note* Diagnosis Insulin controlled gestational diabetes mellitus (GDM) in second trimester- Primary [facility]* Diagnosis 19 weeks gestation of (HHS-HCC) Second trimester (HHS-HCC) state, incidental Thyroid disease Unspecified disorder of thyroid Multigravida of advanced maternal age in second trimester (HHS-HCC) Gestational diabetes mellitus (GDM), antepartum, gestational diabetes method of control unspecified ([facility]) [facility] Narrative No data available for this section [facility] Discharge instructions No data available for this section [facility] filedocumented in this encounter [facility] filedocumented in this encounter [facility]Not on filedocumented in this encounter [facility]Not on filedocumented in this encounter [facility]ructionsNot on filedocumented in this encounter [facility] No data available for this section [facility] (narrative) , pt reported hx of nasal polyps and deviated septum but never had surgery done Referred by: Shirlene YEBOAH, [facility] Primary Care Summary Purpose Family History [...] section and content) DATE CREATED AUTHOR 10/22/2017 [facility] DATE CREATED AUTHOR AUTHOR'S ORGANIZ ATION 11/14/2017 [employer] DATE CREATED AUTHOR AUTHOR'S ORGANIZ ATION 06/18/2018 [facility] DATE CREATED AUTHOR AUTHOR'S ORGANIZ ATION 12/30/2021 [facility] DATE CREATED AUTHOR AUTHOR'S ORGANIZ ATION 06/09/2022 [facility] DATE CREATED AUTHOR AUTHOR'S ORGANIZ ATION 09/29/2023 [facility] DATE CREATED AUTHOR AUTHOR'S ORGANIZ ATION 12/03/2023 [facility] DATE CREATED AUTHOR AUTHOR'S ORGANIZ ATION 12/09/2023 [facility] DATE CREATED AUTHOR AUTHOR'S ORGANIZ ATION 12/10/2023 [facility] DATE CREATED AUTHOR AUTHOR'S ORGANIZ ATION 01/27/2024 [facility] DATE CREATED AUTHOR AUTHOR'S ORGANIZ ATION 02/24/2024 [facility] DATE CREATED AUTHOR AUTHOR'S ORGANIZ ATION 02/26/2024 [facility] DATE CREATED AUTHOR AUTHOR'S ORGANIZ ATION 02/28/2024 [facility] DATE CREATED AUTHOR AUTHOR'S ORGANIZ ATION 03/02/2024 [facility] DATE CREATED AUTHOR AUTHOR'S ORGANIZ ATION 03/03/2024 [facility] DATE CREATED AUTHOR AUTHOR'S ORGANIZ ATION 05/15/2024 [facility] DATE CREATED AUTHOR AUTHOR'S ORGANIZ ATION 05/17/2024 [facility] DATE CREATED AUTHOR AUTHOR'S ORGANIZ ATION 05/18/2024 [facility] DATE CREATED AUTHOR AUTHOR'S ORGANIZ ATION 05/19/2024 [facility] DATE CREATED AUTHOR AUTHOR'S ORGANIZ ATION 06/11/2024 [facility] DATE CREATED AUTHOR AUTHOR'S ORGANIZ ATION 06/17/2024 [facility] DATE CREATED AUTHOR AUTHOR'S ORGANIZ ATION 07/09/2024 [facility] DATE CREATED AUTHOR AUTHOR'S ORGANIZ ATION 07/12/2024 [facility] DATE CREATED AUTHOR AUTHOR'S ORGANIZ ATION 07/15/2024 [facility] DATE CREATED AUTHOR AUTHOR'S ORGANIZ ATION 08/24/2024 [facility] DATE CREATED AUTHOR AUTHOR'S ORGANIZ ATION 08/26/2024 [facility] DATE CREATED AUTHOR AUTHOR'S ORGANIZ ATION 09/01/2024 [facility] DATE CREATED AUTHOR AUTHOR'S ORGANIZ ATION 09/08/2024 [facility] DATE CREATED AUTHOR AUTHOR'S ORGANIZ ATION 09/11/2024 [facility] DATE CREATED AUTHOR AUTHOR'S ORGANIZ ATION 11/09/2024 [facility] DATE CREATED AUTHOR AUTHOR'S ORGANIZ ATION 12/06/2024 [facility] DATE CREATED AUTHOR AUTHOR'S ORGANIZ ATION 12/09/2024 [facility] DATE CREATED AUTHOR AUTHOR'S ORGANIZ ATION 12/10/2024 [facility] DATE CREATED AUTHOR AUTHOR'S ORGANIZ ATION 12/13/2024 [facility] [employer] Comments (unrecognize d section and content) In the event this informatio n is protected by the Federal Confidentiality of Alcohol and Drug Abuse Patient Records regulations: The Federal rules restrict any use of the information to criminally investigate or prosecute any alcohol or drug abuse patient.[facility] the event this information is protected by the Federal Confidentiality of Alcohol and Drug Abuse Patient Records regulations: The Federal rules restrict any use of the information to criminally investigate or prosecute any alcohol or drug abuse patient.[facility] CenterIn the event this information is protected by the Federal Confidentiality of Alcohol and Drug Abuse Patient Records regulations: The Federal rules restrict any use of the information to criminally investigate or prosecute any alcohol or drug abuse patient.[facility] CenterIn the event this information is protected by the Federal Confidentiality of Alcohol and Drug Abuse Patient Records regulations: The Federal rules restrict any use of the information to criminally investigate or prosecute any alcohol or drug abuse patient.[facility] CenterIn the event this information is protected by the Federal Confidentiality of Alcohol and Drug Abuse Patient Records regulations: The Federal rules restrict any use of the information to criminally investigate or prosecute any alcohol or drug abuse patient.[facility] CenterIn the event this information is protected by the Federal Confidentiality of Alcohol and Drug Abuse Patient Records regulations: The Federal rules restrict any use of the information to criminally investigate or prosecute any alcohol or drug abuse patient.[facility] CenterIn the event this information is protected by the Federal Confidentiality of Alcohol and Drug Abuse Patient Records regulations: The Federal rules restrict any use of the information to criminally investigate or prosecute any alcohol or drug abuse patient.[facility] CenterIn the event this information is protected by the Federal Confidentiality of Alcohol and Drug Abuse Patient Records regulations: The Federal rules restrict any use of the information to criminally investigate or prosecute any alcohol or drug abuse patient.[facility] CenterIn the event this information is protected by the Federal Confidentiality of Alcohol and Drug Abuse Patient Records regulations: The Federal rules restrict any use of the information to criminally investigate or prosecute any alcohol or drug abuse patient.[facility] CenterIn the event this information is protected by the Federal Confidentiality of Alcohol and Drug Abuse Patient Records regulations: The Federal rules restrict any use of the information to criminally investigate or prosecute any alcohol or drug abuse patient.[facility] CenterIn the event this information is protected by the Federal Confidentiality of Alcohol and Drug Abuse Patient Records regulations: The Federal rules restrict any use of the information to criminally investigate or prosecute any alcohol or drug abuse patient.[facility] CenterIn the event this information is protected by the Federal Confidentiality of Alcohol and Drug Abuse Patient Records regulations: The Federal rules restrict any use of the information to criminally investigate or prosecute any alcohol or drug abuse patient.[facility] CenterIn the event this information is protected by the Federal Confidentiality of Alcohol and Drug Abuse Patient Records regulations: The Federal rules restrict any use of the information to criminally investigate or prosecute any alcohol or drug abuse patient.[facility] CenterIn the event this information is protected by the Federal Confidentiality of Alcohol and Drug Abuse Patient Records regulations: The Federal rules restrict any use of the information to criminally investigate or prosecute any alcohol or drug abuse patient.[facility] CenterIn the event this information is protected by the Federal Confidentiality of Alcohol and Drug Abuse Patient Records regulations: The Federal rules restrict any use of the information to criminally investigate or prosecute any alcohol or drug abuse patient.[facility] CenterIn the event this information is protected by the Federal Confidentiality of Alcohol and Drug Abuse Patient Records regulations: The Federal rules restrict any use of the information to criminally investigate or prosecute any alcohol or drug abuse patient.[facility] CenterIn the event this information is protected by the Federal Confidentiality of Alcohol and Drug Abuse Patient Records regulations: The Federal rules restrict any use of the information to criminally investigate or prosecute any alcohol or drug abuse patient.[facility] CenterIn the event this information is protected by the Federal Confidentiality of Alcohol and Drug Abuse Patient Records regulations: The Federal rules restrict any use of the information to criminally investigate or prosecute any alcohol or drug abuse patient.[facility] CenterIn the event this information is protected by the Federal Confidentiality of Alcohol and Drug Abuse Patient Records regulations: The Federal rules restrict any use of the information to criminally investigate or prosecute any alcohol or drug abuse patient.[facility] CenterIn the event this information is protected by the Federal Confidentiality of Alcohol and Drug Abuse Patient Records regulations: The Federal rules restrict any use of the information to criminally investigate or prosecute any alcohol or drug abuse patient.[facility] CenterIn the event this information is protected by the Federal Confidentiality of Alcohol and Drug Abuse Patient Records regulations: The Federal rules restrict any use of the information to criminally investigate or prosecute any alcohol or drug abuse patient.[facility] CenterIn the event this information is protected by the Federal Confidentiality of Alcohol and Drug Abuse Patient Records regulations: The Federal rules restrict any use of the information to criminally investigate or prosecute any alcohol or drug abuse patient.[facility] CenterIn the event this information is protected by the Federal Confidentiality of Alcohol and Drug Abuse Patient Records regulations: The Federal rules restrict any use of the information to criminally investigate or prosecute any alcohol or drug abuse patient.[facility] CenterIn the event this information is protected by the Federal Confidentiality of Alcohol and Drug Abuse Patient Records regulations: The Federal rules restrict any use of the information to criminally investigate or prosecute any alcohol or drug abuse patient.[facility] CenterIn the event this information is protected by the Federal Confidentiality of Alcohol and Drug Abuse Patient Records regulations: The Federal rules restrict any use of the information to criminally investigate or prosecute any alcohol or drug abuse patient.[facility] CenterIn the event this information is protected by the Federal Confidentiality of Alcohol and Drug Abuse Patient Records regulations: The Federal rules restrict any use of the information to criminally investigate or prosecute any alcohol or drug abuse patient.[facility] CenterIn the event this information is protected by the Federal Confidentiality of Alcohol and Drug Abuse Patient Records regulations: The Federal rules restrict any use of the information to criminally investigate or prosecute any alcohol or drug abuse patient.[facility] CenterIn the event this information is protected by the Federal Confidentiality of Alcohol and Drug Abuse Patient Records regulations: The Federal rules restrict any use of the information to criminally investigate or prosecute any alcohol or drug abuse patient.[facility] CenterIn the event this information is protected by the Federal Confidentiality of Alcohol and Drug Abuse Patient Records regulations: The Federal rules restrict any use of the information to criminally investigate or prosecute any alcohol or drug abuse patient.[facility] CenterIn the event this information is protected by the Federal Confidentiality of Alcohol and Drug Abuse Patient Records regulations: The Federal rules restrict any use of the information to criminally investigate or prosecute any alcohol or drug abuse patient.[facility] CenterIn the event this information is protected by the Federal Confidentiality of Alcohol and Drug Abuse Patient Records regulations: The Federal rules restrict any use of the information to criminally investigate or prosecute any alcohol or drug abuse patient.[facility] CenterIn the event this information is protected by the Federal Confidentiality of Alcohol and Drug Abuse Patient Records regulations: The Federal rules restrict any use of the information to criminally investigate or prosecute any alcohol or drug abuse patient.[facility] CenterIn the event this information is protected by the Federal Confidentiality of Alcohol and Drug Abuse Patient Records regulations: The Federal rules restrict any use of the information to criminally investigate or prosecute any alcohol or drug abuse patient.[facility] CenterIn the event this information is protected by the Federal Confidentiality of Alcohol and Drug Abuse Patient Records regulations: The Federal rules restrict any use of the information to criminally investigate or prosecute any alcohol or drug abuse patient.[facility] CenterIn the event this information is protected by the Federal Confidentiality of Alcohol and Drug Abuse Patient Records regulations: The Federal rules restrict any use of the information to criminally investigate or prosecute any alcohol or drug abuse patient.[facility] CenterIn the event this information is protected by the Federal Confidentiality of Alcohol and Drug Abuse Patient Records regulations: The Federal rules restrict any use of the information to criminally investigate or prosecute any alcohol or drug abuse patient.[facility] CenterIn the event this information is protected by the Federal Confidentiality of Alcohol and Drug Abuse Patient Records regulations: The Federal rules restrict any use of the information to criminally investigate or prosecute any alcohol or drug abuse patient.[facility] CenterIn the event this information is protected by the Federal Confidentiality of Alcohol and Drug Abuse Patient Records regulations: The Federal rules restrict any use of the information to criminally investigate or prosecute any alcohol or drug abuse patient.[facility] CenterIn the event this information is protected by the Federal Confidentiality of Alcohol and Drug Abuse Patient Records regulations: The Federal rules restrict any use of the information to criminally investigate or prosecute any alcohol or drug abuse patient.[facility] CenterIn the event this information is protected by the Federal Confidentiality of Alcohol and Drug Abuse Patient Records regulations: The Federal rules restrict any use of the information to criminally investigate or prosecute any alcohol or drug abuse patient.[facility] CenterIn the event this information is protected by the Federal Confidentiality of Alcohol and Drug Abuse Patient Records regulations: The Federal rules restrict any use of the information to criminally investigate or prosecute any alcohol or drug abuse patient.[facility] CenterIn the event this information is protected by the Federal Confidentiality of Alcohol and Drug Abuse Patient Records regulations: The Federal rules restrict any use of the information to criminally investigate or prosecute any alcohol or drug abuse patient.[facility] CenterIn the event this information is protected by the Federal Confidentiality of Alcohol and Drug Abuse Patient Records regulations: The Federal rules restrict any use of the information to criminally investigate or prosecute any alcohol or drug abuse patient.[facility] CenterIn the event this information is protected by the Federal Confidentiality of Alcohol and Drug Abuse Patient Records regulations: The Federal rules restrict any use of the information to criminally investigate or prosecute any alcohol or drug abuse patient.[facility] CenterIn the event this information is protected by the Federal Confidentiality of Alcohol and Drug Abuse Patient Records regulations: The Federal rules restrict any use of the information to criminally investigate or prosecute any alcohol or drug abuse patient.[facility] CenterIn the event this information is protected by the Federal Confidentiality of Alcohol and Drug Abuse Patient Records regulations: The Federal rules restrict any use of the information to criminally investigate or prosecute any alcohol or drug abuse patient.[facility] CenterIn the event this information is protected by the Federal Confidentiality of Alcohol and Drug Abuse Patient Records regulations: The Federal rules restrict any use of the information to criminally investigate or prosecute any alcohol or drug abuse patient.[facility] CenterIn the event this information is protected by the Federal Confidentiality of Alcohol and Drug Abuse Patient Records regulations: The Federal rules restrict any use of the information to criminally investigate or prosecute any alcohol or drug abuse patient.[facility] CenterIn the event this information is protected by the Federal Confidentiality of Alcohol and Drug Abuse Patient Records regulations: The Federal rules restrict any use of the information to criminally investigate or prosecute any alcohol or drug abuse patient.[facility] CenterIn the event this information is protected by the Federal Confidentiality of Alcohol and Drug Abuse Patient Records regulations: The Federal rules restrict any use of the information to criminally investigate or prosecute any alcohol or drug abuse patient.[facility] CenterIn the event this information is protected by the Federal Confidentiality of Alcohol and Drug Abuse Patient Records regulations: The Federal rules restrict any use of the information to criminally investigate or prosecute any alcohol or drug abuse patient.[facility] CenterIn the event this information is protected by the Federal Confidentiality of Alcohol and Drug Abuse Patient Records regulations: The Federal rules restrict any use of the information to criminally investigate or prosecute any alcohol or drug abuse patient.[facility] CenterIn the event this information is protected by the Federal Confidentiality of Alcohol and Drug Abuse Patient Records regulations: The Federal rules restrict any use of the information to criminally investigate or prosecute any alcohol or drug abuse patient.[facility] CenterIn the event this information is protected by the Federal Confidentiality of Alcohol and Drug Abuse Patient Records regulations: The Federal rules restrict any use of the information to criminally investigate or prosecute any alcohol or drug abuse patient.[facility] Care Teams (unrecognized sec tion and content) Materials Branch Chief Relationship Specialty Start Date End Date Humaira Gaviria MD [address] [place] [id number] PCP - General Internal Medicine 07/05/18 Jonny Wilcox MD [address] [place] [address] Primary Staff Physician Cardiology 07/16/18 Materials Branch Chief Relationship Specialty Start Date End Date Humaira Gaviria MD [address] [place] [address] PCP - General Internal Medicine 07/05/18 Jonny Wilcox MD [address] [place] [address] Primary Staff Physician Cardiology 07/16/18 Materials Branch Chief Relationship Specialty Start Date End Date Humaira Gaviria MD [address] [facility] [place] [address] PCP - General Internal Medicine 07/05/18 Jonny Wilcox MD [address] [place] [address] Primary Staff Physician Cardiology 07/16/18 Materials Branch Chief Relationship Specialty Start Date End Date Humaira Gaviria MD [address] [facility] [place] [address] PCP - General Internal Medicine 07/05/18 Jonny Wilcox MD [address] [place] [address] Primary Staff Physician Cardiology 07/16/18 Materials Branch Chief Relationship Specialty Start Date End Date Humaira Gaviria MD [address] [facility] [place] [address] PCP - General Internal Medicine 07/05/18 Jonny Wilcox MD [address] [place] [address] Primary Staff Physician Cardiology 07/16/18 [place] [address] [place] [address] Physician Hematology/Oncology 09/14/21 Davida Restrepo, RN [address] [place] [address] Specialty Telegraphic Typewriter Operator Chief Hematology/Oncology 09/14/21 Materials Branch Chief Relationship Specialty Start Date End Date Penelope Casas [address] [place] [address] PCP - General Family Medicine 10/04/20 Materials Branch Chief Relationship Specialty Start Date End Date Humaira Gaviria MD [address] [facility] [place] [address] PCP - General Internal Medicine 07/05/18 Jonny Wilcox MD [address] [place] [address] Primary Staff Physician Cardiology 07/16/18 [place] [address] [place] [address] Physician Hematology/Oncology 09/14/21 Davida Restrepo, MARSHA [address] [place] [address] Specialty Telegraphic Typewriter Operator Chief Hematology/Oncology 09/14/21 Materials Branch Chief Relationship Specialty Start Date End Date Penelope Casas DO [address] [place] [address] PCP - General Family Medicine 01/30/22 Jonny Wilcox MD [address] [place] [address] Primary Staff Physician Cardiology 07/16/18 [place] [address] [place] [address] Physician Hematology/Oncology 09/14/21 Davida Restrepo, MARSHA [address] [place] [address] Specialty Telegraphic Typewriter Operator Chief Hematology/Oncology 09/14/21 Materials Branch Chief Relationship Specialty Start Date End Date Penelope Casas DO [address] [place] [address] PCP - General Family Medicine 01/30/22 Jonny Wilcox MD [address] [place] [address] Primary Staff Physician Cardiology 07/16/18 [place] [address] [place] [address] Physician Hematology/Oncology 09/14/21 Davida Restrepo, RN [address] [place] [address] Specialty Telegraphic Typewriter Operator Chief Hematology/Oncology 09/14/21 Materials Branch Chief Relationship Specialty Start Date End Date Penelope Casas DO [address] [place] [address] PCP - General Family Medicine 01/30/22 Jonny Wilcox MD [address] [place] [address] Primary Staff Physician Cardiology 07/16/18 [place] [address] [place] [address] Physician Hematology/Oncology 09/14/21 Davida Restrepo, RN [address] [place] [address] Specialty Telegraphic Typewriter Operator Chief Hematology/Oncology 09/14/21 Materials Branch Chief Relationship Specialty Start Date End Date Penelope Casas DO [address] [place] [address] PCP - General Family Medicine 01/30/22 Jonny Wilcox MD [address] [place] [address] Primary Staff Physician Cardiology 07/16/18 [place] [address] [place] [address] Physician Hematology/Oncology 09/14/21 Davida Restrepo, RN [address] [place] [address] Specialty Telegraphic Typewriter Operator Chief Hematology/Oncology 09/14/21 Materials Branch Chief Relationship Specialty Start Date End Date Penelope Casas DO [address] [place] [address] PCP - General Family Medicine 01/30/22 Jonny Wilcox MD [address] [place] [address] Primary Staff Physician Cardiology 07/16/18 [place] [address] [place] [address] Physician Hematology/Oncology 09/14/21 Davida Restrepo, RN [address] [place] [address] Specialty Telegraphic Typewriter Operator Chief Hematology/Oncology 09/14/21 Materials Branch Chief Relationship Specialty Start Date End Date Penelope Casas DO [address] [place] [address] PCP - General Family Medicine 01/30/22 Jonny Wilcox MD [address] [place] [address] Primary Staff Physician Cardiology 07/16/18 [place] [address] [place] [address] Physician Hematology/Oncology 09/14/21 Davida Restrepo, RN [address] [place] [address] Specialty Telegraphic Typewriter Operator Chief Hematology/Oncology 09/14/21 Materials Branch Chief Relationship Specialty Start Date End Date Penelope Casas DO [address] [place] [address] PCP - General Family Medicine 01/30/22 Jonny Wilcox MD [address] [place] [address] Primary Staff Physician Cardiology 07/16/18 [place] [address] [place] [address] Physician Hematology/Oncology 09/14/21 Davida Restrepo, RN [address] [place] [address] Specialty Telegraphic Typewriter Operator Chief Hematology/Oncology 09/14/21 Materials Branch Chief Relationship Specialty Start Date End Date Penelope Casas, DO [address] [place] [address] PCP - General Family Medicine 01/30/22 Jonny Wilcox MD [address] [place] [address] Primary Staff Physician Cardiology 07/16/18 [place] [address] [place] [address] Physician Hematology/Oncology 09/14/21 Davida Restrepo, MARSHA [address] [place] [address] Specialty Telegraphic Typewriter Operator Chief Hematology/Oncology 09/14/21 Materials Branch Chief Relationship Specialty Start Date End Date Penelope Casas DO [address] [place] [address] PCP - General Family Medicine 01/30/22 Jonny Wilcox MD [address] [place] [address] Primary Staff Physician Cardiology 07/16/18 [place] [address] [place] [address] Physician Hematology/Oncology 09/14/21 Davida Restrepo RN [address] [facility] [place] [address] Specialty Telegraphic Typewriter Operator Chief Hematology/Oncology 09/14/21 Materials Branch Chief Relationship Specialty Start Date End Date Penelope Casas DO [address] [facility] [place] [address] PCP - General Family Medicine 01/30/22 Jonny Wilcox MD [address] [place] [address] Primary Staff Physician Cardiology 07/16/18 [place] [address] [place] [address] Physician Hematology/Oncology 09/14/21 Davida Restrepo RN [address] [place] [address] Specialty Telegraphic Typewriter Operator Chief Hematology/Oncology 09/14/21 Materials Branch Chief Relationship Specialty Start Date End Date Penelope Casas DO [address] [facility] [place] [address] PCP - General Family Medicine 01/30/22 Jonny Wilcox MD [address] [place] [address] Primary Staff Physician Cardiology 07/16/18 [place] [address] [place] [address] Physician Hematology/Oncology 09/14/21 Davida Restrepo RN [address] [place] [address] Specialty Telegraphic Typewriter Operator Chief Hematology/Oncology 09/14/21 Materials Branch Chief Relationship Specialty Start Date End Date Penelope Casas DO [address] [place] [address] PCP - General Family Medicine 01/30/22 Jonny Wilcox MD [address] [place] [address] Primary Staff Physician Cardiology 07/16/18 [place] [address] [place] [address] Physician Hematology/Oncology 09/14/21 Davida Restrepo RN [address] [place] [address] Specialty Telegraphic Typewriter Operator Chief Hematology/Oncology 09/14/21 Materials Branch Chief Relationship Specialty Start Date End Date Penelope Casas DO [address] [place] [address] PCP - General Family Medicine 01/30/22 Jonny Wilcox MD [address] [place] [address] Primary Staff Physician Cardiology 07/16/18 [place] [address] [place] [address] Physician Hematology/Oncology 09/14/21 Davida Restrepo RN [address] [place] [address] Specialty Telegraphic Typewriter Operator Chief Hematology/Oncology 09/14/21 Materials Branch Chief Relationship Specialty Start Date End Date Penelope Casas DO [address] [place] [address] PCP - General Family Medicine 01/30/22 Jonny Wilcox MD [address] [place] [address] Primary Staff Physician Cardiology 07/16/18 [place] [address] [place] [address] Physician Hematology/Oncology 09/14/21 Davida Restrepo, RN [address] [place] [address] Specialty Telegraphic Typewriter Operator Chief Hematology/Oncology 09/14/21 Materials Branch Chief Relationship Specialty Start Date End Date Penelope Casas DO [address] [facility] [place] [address] PCP - General Family Medicine 01/30/22 Jonny Wilcox MD [address] [place] [address] Primary Staff Physician Cardiology 07/16/18 [place] [address] [place] [address] Physician Hematology/Oncology 09/14/21 Davida Restrepo, RN [address] [place] [address] Specialty Telegraphic Typewriter Operator Chief Hematology/Oncology 09/14/21 Materials Branch Chief Relationship Specialty Start Date End Date Penelope Casas DO [address] [place] [address] PCP - General Family Medicine 01/30/22 Jonny Wilcox MD [address] [place] [address] Primary Staff Physician Cardiology 07/16/18 [place] [address] [place] [address] Physician Hematology/Oncology 09/14/21 Davida Restrepo RN [address] [place] [address] Specialty Telegraphic Typewriter Operator Chief Hematology/Oncology 09/14/21 Materials Branch Chief Relationship Specialty Start Date End Date Penelope Casas DO [address] [facility] [place] [address] PCP - General Family Medicine 01/30/22 Jonny Wilcox MD [address] [place] [address] Primary Staff Physician Cardiology 07/16/18 [place] [address] [place] [address] Physician Hematology/Oncology 09/14/21 Davida Restrepo RN [address] [facility] [address] Specialty Telegraphic Typewriter Operator Chief Hematology/Oncology 09/14/21 Materials Branch Chief Relationship Specialty Start Date End Date Penelope Casas DO [address] [place] [address] PCP - General Family Medicine 01/30/22 Jonny Wilcox MD [address] [place] [address] Primary Staff Physician Cardiology 07/16/18 [place] [address] [place] [address] Physician Hematology/Oncology 09/14/21 Davida Restrepo, RN [address] [place] [address] Specialty Telegraphic Typewriter Operator Chief Hematology/Oncology 09/14/21 Materials Branch Chief Relationship Specialty Start Date End Date Penelope Casas DO [address] [place] [address] PCP - General Family Medicine 01/30/22 Jonny Wilcox MD [address] [place] [address] Primary Staff Physician Cardiology 07/16/18 [place] [address] [place] [address] Physician Hematology/Oncology 09/14/21 Davida Restrepo, RN [address] [place] [address] Specialty Telegraphic Typewriter Operator Chief Hematology/Oncology 09/14/21 Materials Branch Chief Relationship Specialty Start Date End Date Penelope Casas DO [address] [place] [address] PCP - General Family Medicine 01/30/22 Jonny Wilcox MD [address] [place] [address] Primary Staff Physician Cardiology 07/16/18 [place] [address] [place] [address] Physician Hematology/Oncology 09/14/21 Davida Restrepo RN [address] [place], [place] [id number] Specialty Telegraphic Typewriter Operator Chief Hematology/Oncology 09/14/21 Materials Branch Chief Relationship Specialty Start Date End Date Penelope Casas DO [address] [place] [address] PCP - General Family Medicine 01/30/22 Jonny Wilcox MD [address] [place] [address] Primary Staff Physician Cardiology 07/16/18 [place] [address] [place] [address] Physician Hematology/Oncology 09/14/21 Davida Restrepo RN [address] [place], [place] [address]857[address] Specialty Telegraphic Typewriter Operator Chief Hematology/Oncology 09/14/21 Materials Branch Chief Relationship Specialty Start Date End Date Penelope Casas DO [address] [place] [address] PCP - General Family Medicine 01/30/22 Jonny Wilcox MD [address] [place] [address] Primary Staff Physician Cardiology 07/16/18 [place] [address] [place] [address] Physician Hematology/Oncology 09/14/21 Davida Restrepo RN [address] [place], [place] [id number] Specialty Telegraphic Typewriter Operator Chief Hematology/Oncology 09/14/21 Materials Branch Chief Relationship Specialty Start Date End Date Penelope Casas DO [address] [place] [address] PCP - General Family Medicine 01/30/22 Jonny Wilcox MD [address] [facility] [place] [address] Primary Staff Physician Cardiology 07/16/18 [place] [address] [place] [address] Physician Hematology/Oncology 09/14/21 Davida Restrepo, RN [address] [place], [place] [id number] Specialty Telegraphic Typewriter Operator Chief Hematology/Oncology 09/14/21 Materials Branch Chief Relationship Specialty Start Date End Date Penelope Casas DO [address] [place] [address] PCP - General Family Medicine 01/30/22 Jonny Wilcox MD [address] [place] [address] Primary Staff Physician Cardiology 07/16/18 [place] [address] [place] [address] Physician Hematology/Oncology 09/14/21 Davida Restrepo, RN [address] [place], [place] [id number] Specialty Telegraphic Typewriter Operator Chief Hematology/Oncology 09/14/21 Materials Branch Chief Relationship Specialty Start Date End Date Penelope Casas MD [address] [place] [address] PCP - General Family Medicine 11/07/23 Materials Branch Chief Relationship Specialty Start Date End Date Penelope Casas MD [address] [place] [address] PCP - General Family Medicine 11/07/23 Materials Branch Chief Relationship Specialty Start Date End Date Penelope Casas MD [address] [place] [address] PCP - General Family Medicine 11/07/23 Materials Branch Chief Relationship Specialty Start Date End Date Penelope Casas MD [address] [place] [address] PCP - General Family Medicine 11/07/23 Materials Branch Chief Relationship Specialty Start Date End Date Penelope Casas MD [address] [place] [address] PCP - General Family Medicine 11/07/23 Team Status: Inactive Member Role Status Rita Herrmann DO Attending Provider Active Start : May 10, 2024 End: May 10, 2024 Materials Branch Chief Relationship Specialty Start Date End Date Penelope Casas DO [address] [place] [address] PCP - General Family Medicine 01/30/22 Jonny Wilcox MD [address] [place] [address] Primary Staff Physician Cardiology 07/16/18 [place] [address] [place] [id number] Physician Hematology/Oncology 09/14/21 Davida Restrepo, RN [address] [place] [address] Specialty Telegraphic Typewriter Operator Chief Hematology/Oncology 09/14/21 Materials Branch Chief Relationship Specialty Start Date End Date Penelope Casas MD [address] [place] [id number] PCP - General Family Medicine 11/07/23 Materials Branch Chief Relationship Specialty Start Date End Date Penelope Casas MD [address] [place] [id number] PCP - General Family Medicine 11/07/23 Materials Branch Chief Relationship Specialty Start Date End Date Penelope Casas MD [address] [place] [id number] PCP - General Family Medicine 11/07/23 Materials Branch Chief Relationship Specialty Start Date End Date Penelope Casas MD [address] [place] [id number] PCP - General Family Medicine 11/07/23 Materials Branch Chief Relationship Specialty Start Date End Date Penelope Casas DO [address] [place] [id number] PCP - General Family Medicine 01/30/22 Jonny Wilcox MD [address] [place] [id number] Primary Staff Physician Cardiology 07/16/18 [place] [address] [place] [id number] Physician Hematology/Oncology 09/14/21 Davida Restrepo, RN [address] [place] [address] Specialty Telegraphic Typewriter Operator Chief Hematology/Oncology 09/14/21 Materials Branch Chief Relationship Specialty Start Date End Date Penelope Casas MD [address] [place] [address] PCP - General Family Medicine 11/07/23 Materials Branch Chief Relationship Specialty Start Date End Date Penelope Casas MD [address] [place] [address] PCP - General Family Medicine 11/07/23 Materials Branch Chief Relationship Specialty Start Date End Date Penelope Casas DO PCP - General Family Medicine 07/07/19 Materials Branch Chief Relationship Specialty Start Date End Date Penelope Casas DO PCP - General Family Medicine 07/07/19 Materials Branch Chief Relationship Specialty Start Date End Date Penelope Casas MD [address] [place] [address] PCP - General Family Medicine 11/07/23 Materials Branch Chief Relationship Specialty Start Date End Date Penelope Casas DO PCP - General Family Medicine 07/07/19 Materials Branch Chief Relationship Specialty Start Date End Date Penelope Casas DO PCP - General Family Medicine 07/07/19 Materials Branch Chief Relationship Specialty Start Date End Date Penelope Casas DO [address] [place] [address] PCP - General Family Medicine 01/30/22 Jonny Wilcox MD [address] [place] [address] Primary Staff Physician Cardiology 07/16/18 [place] [address] [place] [address] Physician Hematology/Oncology 09/14/21 Davida Restrepo, MARSHA [address] [place] [address] Specialty Telegraphic Typewriter Operator Chief Hematology/Oncology 09/14/21 Materials Branch Chief Relationship Specialty Start Date End Date Penelope Casas DO PCP - General Family Medicine 07/07/19 Materials Branch Chief Relationship Specialty Start Date End Date Penelope Casas MD [address] [place] [address] PCP - General Family Medicine 11/07/23 Materials Branch Chief Relationship Specialty Start Date End Date Penelope Casas MD [address] [place] [address] PCP - General Family Medicine 11/07/23 Materials Branch Chief Relationship Specialty Start Date End Date Penelope Casas DO PCP - General Family Medicine 07/07/19 Materials Branch Chief Relationship Specialty Start Date End Date Penelope Casas DO PCP - General Family Medicine 07/07/19 Materials Branch Chief Relationship Specialty Start Date End Date Penelope Casas MD [address] [place] [address] PCP - General Family Medicine 11/07/23 Materials Branch Chief Relationship Specialty Start Date End Date Penelope Casas MD [address] [place] [address] PCP - General Family Medicine 11/07/23 Reason [...] of Procedures INJECTION, FERRIC DERISOMALTOSE, 10 MG Kristofer Calix MD [address] [place] [address] [place] [address] [employer] [address] [place] [address] Referral ID Status Reason Start Date Expiration Date Visits Re quested Visits Authorized [id number] Closed 04/05/2022 05/09/2022 1 1 Reason Comments Refill Request Specialty Diagnoses / Procedures Referred By Contac t Referred To Contact Diagnoses Iron deficiency anemia secondary to blood loss (chronic) Iron deficiency anemia of Procedures IRON SUCROSE INJECTION PER 1 MG Kristofer Calix MD [employer] [place] [address] [employer] [address] [place] [address] Referral ID Status Reason Start Date Expiration Date V isits Requested Visits Authorized [id number] Authorized 03/27/2022 04/30/2022 99 99 Reason Onset [...] Procedures IRON SUCROSE INJECTION PER 1 MG Kristofer Calix MD [address] [facility] [place] [address] [employer] Treat Stew [address] [facility] [place] [address] Referral ID Status Reason Start Date Expiration Date V isits Requested Visits Authorized [id number] Authorized 11/05/2023 05/04/2024 0 3 Reason Onset [...] of control unspecified Wilton Herrmann R, DO [address] [place] [address] [place] [address] Phone: tel: fax: Maternal- Medicine at [facility] [address] [place] [address] Phone: tel: fax: Referral ID Status Reason Start Date Expiration Date Visits Requested Visits Authorized [id number] Pending Review Specialty Services Required 10/13/2024 10/13/2025 [...] BE BASED ON THE PRIMARY CLINICAL RECORDS. [facility]. provides no warranty or guarantee of the accuracy or completeness of information in this document.
[2024-12-16 18:50] VITALS: BP 110/64; PULSE 76
[2024-12-16 18:54] LABS: Glucose Urine UA NEGATIVE (NEGATIVE)
[2024-12-16 18:56] VITALS: TEMP 36.1
[2024-12-16 19:09] LABS: Cast Seen? NONE SEEN #/LPF (NONE SEEN); Crystals Seen? None Seen #/HPF (None Seen); Urine Culture Indicated YES-LC
--- NOTE | 2024-12-16 19:09 | US_ITS ---
[address] [address] Patient Name: MADHU RENDON MRN: [id number] date: 1985 Sex: F Assigned Patient Location: [facility] Current Patient Location: Accession/Order Number: [id number] Exam Date: 12/16/2024 20:39 Report Date: 12/16/2024 20:41 At the request of: MYA MASSEY DO Procedure: US OB cervical length Limited ultrasound HISTORY: Abdominal cramping for one day Fetus in cephalic presentation with longitudinal lie. Amniotic fluid subjectively normal. Placenta is in posterior position. The placental tip is 7 cm from the internal os. The heart rate is 157 bpm. somatic motion identified. The cervical length is 3.6 cm and closed. US/US OB cervical length IMPRESSION: 3.6 cm cervical length with closed os. Single live intrauterine gestation. Impression dictated by: Robert Beltrán M.D. 12/16/2024 8:41 PM Dictation Location: [employer] Electronically authenticated by: [id number] Y Date: 12/16/2024 20:41
== END 2024-12-16 20:15 | disposition home or self-care (01) ==
PROVIDERS: Admitting Provider Obstetrics & Gynecology; PCP Family Medicine; Visit Provider Obstetrics & Gynecology
DX: O26.892 Other specified pregnancy related conditions, second trimester (principal); R10.9 Unspecified abdominal pain; Z3A.20 20 weeks gestation of pregnancy
CPT/HCPCS: 76817; 81001; 87086; 87186; G0378; G0379

== ENCOUNTER 2025-02-12 09:28 | Outpatient (OUT) | payer MEDICAID, SELFPAY ==
--- OUTSIDE RECORDS SUMMARY | 2025-02-12 09:36 | XMS_ITS | CCD ---
Author Organization [facility] CliniSyla Care Team Providers Care Supervisor Area Name Role Phone CROW MONGE Unavailable Unavailable BIBI CHRISTY Unavailable Unavailable ERIKA LONDON Attending Unavailab ERIKA Haddad Referring Unavailab Haseeb Chavez Attending Unavailable Crow Monge Referring Unavailable Humaira Gaviria MD Primary Care Provider Jonny Wilcox MD Unavailable Penelope CASAS Primary Care Physician [phone] Cheri Norwood Unavailable Unavailable Cosmo Elliott MD Unavailable Lauro RN, Davida Unavailable Penelope Casas Primary Care Provider [phone] PENELOPE CASAS Primary Care Unavailable PERVÍCTOR, TOD C Referring Unavailable Humaira Gaviria MD Primary Care Provider [phone] Jonny Wilcox MD Unavailable Cosmo Elliott MD R Unavailable Lauro RN, Davida Unavailable Penelope Casas DO Primary Care Provider [phone] Jonny Wilcox MD P Unavailable [phone] Cosmo Elliott MD R Unavailable Lauro RN, Davida Unavailable Penelope Csaas DO Primary Care Provider [phone] DR WILTON HERRMANN Primary Care Unavailable MONTEZ, [...] Unavailable MONTEZ, DR ROQUE Primary Care Unavailable ROSMAN, DR ANGIE Luna Consulting Unavailable MONTEZ, DR [...] Consulting Unavailable MONTEZ, DR ROQUE Admitting Unavailable MOTNEZ, DR ROQUE Primary Care Unavailable [...] Attending Unavailable Brenden ROSARIO, Jonny Tsai Unavailable [phone] Lauro RN, Davida Unavailable [phone] Penelope Casas DO Primary Care Provider [phone] Penelope CASAS Admitting Unavailable KAPBEN, Penelope Tony Attending Unavailable KAPBEN, Penelope Tony Admitting Unavailable KAPBEN, Penelope Tony Attending Unavailable Benny Uribe Attending Unavailable NELI DUNHAM Attending Unavailbrandon e Hal, Taylor Varela Attending Unavailable HalTaylor mcrae Attending Unavailable KAPBEN, Penelope Tony Attending Unavailable KAPBEN, Penelope Tony Attending Unavailable KAPBEN, Penelope Tony Attending Unavailable KAPBEN, Penelope Tony Attending Unavailable KAPBEN, Penelope Tony Attending Unavailable KAPBEN, Penelope Tony Attending Unavailable Lourdes Garber Attending Unavailab le Penelope CASAS Attending Unavailable Monica Saba Admitting Unavailable Monica Saba Attending Unavailable Monica Saba Referring Unavailable CROW MONGE Consulting Unavailable MD CROW MONGE Consulting Unavailable Lourdes Garber Attending Unavailab Monica Escobar Admitting Unavailable Monica Saba Attending Unavailable Monica Saba Referring Unavailable Benny Uribe Attending Unavailable Penelope CASAS Attending Unavailable Monica Saba Attending Unavailable KAPPenelope CASTILLO Admitting Unavailable KAPPenelope CASTILLO Attending Unavailable MONTEZ, Wilton R Attending Unavailable MONTEZ, Wilton R Admitting Unavailable MONTEZ, Witlon R Attending Unavailable MONTEZ, Wilton R Admitting [...] Wilton Admitting Unavailable Gudimella, Anni Attending Unavailable Day, Anni Attending Unavailable Penelope CASAS Attending Unavailable KAPBEN, Penelope A Attending Unavailable MONTEZ, Wilton R Admitting Unavailable MONTEZ, Wilton R Attending Unavailable KAPBEN, Penelope Tony Admitting Unavailable KAPBEN, Penelope Tony Attending Unavailable KAPBEN, Penelope Tony Attending Unavailable KAPBEN, Penelope Tony Attending Unavailable MONTEZ, Wilton R Admitting Unavailable MONTEZ, Wilton R Attending Unavailable BLAKE, ABI Tony Attending Unavailable MONTEZ, Wilton R Attending Unavailable MONTEZ, Wilton R Admitting Unavailable MONTEZ, Wilton R Admitting Unavailable MONTEZ, Wilton R Attending Unavailable Inez Wakefield Attending Unavailable Inez Wakefield Admitting Unavailable Visci, Farhat Tony Attending Unavailable Visci, Farhat Tony Admitting Unavailable Inez Wakefield Attending Unavailable Inez Wakefield Admitting Unavailable MONTEZ, Wilton R Attending Unavailable MONTEZ, Wilton R Admitting Unavailable Romulo Chiu Attending Unavailable KAPPenelope CASTILLO Attending Unavailable MONTEZ, Wilton R Attending Unavailable MONTEZ, Wilton R Admitting Unavailable JESSICA BACA Attending Unavailabl e Inez Wakefield Attending Unavailable Penelope CASAS Attending Unavailable Penelope Casas DO Primary Care Provider [phone] MONTEZ, Wilton R Attending Unavailable MONTEZ, Wilton R Admitting Unavailable MONTEZ, Wilton R Admitting Unavailable MONTEZ, Wilton R Attending Unavailable MONTEZ, Wilton R Attending Unavailable MONTEZ, Wilton R Admitting Unavailable MONTEZ, Wilton R Attending Unavailable MONTEZ, Wilton R Referring Unavailable KAPBEN, PENELOPE Tony Primary Care Unavailable KAPBEN, PENELOPE A Primary Care Unavailable ABHYANKAR, KRISTOFER Referring Unavailable ABHYANKAR, KRISTOFER Attending Unavailable KAPPENELOPE CASTILLO A Primary Care Unavailable ABHYANKAR, KRISTOFER Referring Unavailable KAPPENELOPE CASTILLO Primary Care Unavailable KATHERINE NEGRETE Attending Unavailable ABHYANKAR, KRISTOFER Referring Unavailable KAPPENELOPE CASTILLO Primary Care Unavailable KAPBEN, PENELOPE Tony Primary Care Unavailable KATHERINE NEGRETE Attending Unavailable ABHYANKAR, KRISTOFER Referring Unavailable MONTEZ, WILTON R Referring Unavailable KAPLE, PENELOPE A Primary Care Unavailable DOCHEVA, NIKOLINA P Attending Unavailable MONTEZ, WILTON R Referring Unavailable KAPLE, PENELOPE A Primary Care Unavailable MONTEZ, WILTON R Referring Unavailable KAPLE, PENELOPE Tony Primary Care Unavailable KAPLE, PENELOPE Tony Primary Care Unavailable MONTEZ, WILTON R Referring Unavailable CINDY MILLER Attending Unavailable KAPLE, PENELOPE Tony Primary Care Unavailable KAPLE, PENELOPE Tony Referring Unavailable TORI, ALISA Attending Unavailable KAPLE, PENELOPE A Primary Care Unavailable KAPLE, PENELOPE Tony Referring Unavailable TORI, ALISA Attending Unavailable KAPLE, PENELOPE Tony Primary Care Unavailable TORI, ALISA Attending Unavailable MONTEZ, WILTON R Referring Unavailable KAPLE, PENELOPE A Referring Unavailable KAPLE, PENELOPE A Primary Care Unavailable ROXANA MAYS Attending Unavailable KAPLE, PENELOPE A Primary Care Unavailable DOCHEVA, NIKOLINA P Attending Unavailable MONTEZ, WILTON R Referring Unavailable MONTEZ, WILTON Attending Unavailable MONTEZ, WILTON Attending Unavailable MONTEZ, WILTON Attending Unavailable MONTEZ, WILTON Attending Unavailable MONTEZ, WILTON Attending Unavailable MONTEZ, WILTON Attending Unavailable MONTEZ, WILTON Attending Unavailable MONTEZ, WILTON Attending Unavailable MONTEZ, WILTON Attending Unavailable MONTEZ, WILTON Attending Unavailable KapPenelope castillo MD Primary Care Provider Allergies Allergy Classification Reported Allergen(s) Allergy Type Date of Onset Reaction(s) Facility (20 sources) Ciprofloxacin; Translations: [ciprofloxacin] Drug Allergy 05-19-19 Other: See Comments, Unknown, Numbness and tingling sensation of skin (finding), Nausea (finding), Other (See Comments), GI intolerance, Dizziness [facility] Work Phone: (20 sources) Ciprofloxacin / fluocinolone; Translations: [CIPROFLOXACIN-FL UOCINOLONE] Drug Allergy 05-19-19 20 Other: See Comments [facility] (20 sources) cow milk allergenic extract; Translations: [MILK] Drug Allergy 05-25-19 Other: See Comments [facility] Work Phone: (20 sources) Lactalbumin; Translations: [LACTALBUMIN] Drug Allergy 05-25-19 18 Unknown, GI Upset, Other (See Comments) [facility] (20 sources) Lactose; Translations: [LACTOSE] Drug Allergy 09-11-19 18 GI Upset, GI Disturbance [facility] (20 sources) Milk Drug Allergy 05-25-19 18 Other: See Comments, Other (See Comments) [facility] (6 sources) Penicillins Drug Allergy 02-01-20 19 Unknown [facility] (20 sources) Seasonal allergy; Translations: [SEASONAL ALLERGIES] Allergy to substance 05-05-19 21 GI Upset, Other: See Comments [facility] Work Phone: (20 sources) Milk Products; Translations: [Milk Products] Drug allergy Illness (finding) [facility] (20 sources) Ciprofloxacin / fluocinolone Drug Allergy 05-19-19 20 Other (See Comments) [facility] Work Phone: (1 source) Seasonal allergy Propensity to adverse reactions to substance 05-05-19 21 Other (See Comments) [facility] Work Phone: (1 source) Milk-Related Compounds Propensity to adverse reactions to drug 05-25-19 18 Other (See Comments) [facility] Work Phone: (2 sources) Penicillins Drug Allergy 02-01-20 19 Unknown [facility] (1 source) Ciprofloxacin Drug Allergy 03-30-20 22 [facility] (20 sources) Lactose (non-medical use) Propensity to adverse reactions 09-11-[address] [facility] (20 sources) Lactose (non-medical use) Drug Allergy 11-15-[address] [facility] (20 sources) Octacosanol Drug Intolerance 05-05-[address] [facility] (20 sources) Other Allergy to substance 05-25-19 18 Other [facility] Work Phone: (3 sources) MILK CONTAINING PRODUCTS (DAIRY); Translations: [MILK CONTAINING PRODUCTS (DAIRY)] Propensity to adverse reactions to drug (disorder) 05-25-19 18 [facility] Medications Current Medications Medication Drug [...] puff(s), Inhalation, q6hr, 1 EA, Refill(s) 5, [facility], 168, cm, 02/02/24 14:43:00 EDT, Height/Length Dosing, 101.1, kg, 02/02/24 14:43:00 EDT, Weight Dosing Start Date: 02/02/24 Status: Ordered azithromycin 250 mg oral tablet (20 sources) Macrolide Antimicrobial Start: 09-08-2024 End: 10-30-2024 azithromycin (Zithromax Z-Jonny) 250 MG tablet Indications: 5 weeks gestation of ([facility]) As directed 6 tablet 09/08/2024 10/30/2024 Discontinued (Therapy completed) Start: 06-19-2024 End: 06-29-2024 Zithromax 250 mg Tab = 1 pac ket(s), Oral, As Directed, as directed on package labeling, X 5 day(s), # 6 tab(s), Refills(s) 1, Pharmacy: [facility] 1986, 168, cm, 06/09/24 14:03:00 EST, [...] day(s), # 6 tab(s), Refills(s) 0, Pharmacy: [facility] 1985, 168, cm, 02/02/24 14:43:00 EDT, Height/Length Dosing, 101.1, kg, 02/02/24 14:43:00 EDT, Weight Dosing Start Date: 02/02/24 Stop Date: 02/07/24 Status: Ordered Blood Glucose Monitoring Suppl (D-Care Glucometer) w/Device kit (18 sources) Start: 10-30-2024 End: 10-30-2025 Blood Glucose Monitoring Suppl (D-Care Glucometer) w/Device kit Indications: Second trimester ([facility]) , 13 weeks gestation of ([facility]) , Multigravida of advanced maternal age in second trimester ([facility]) , Gestational diabetes mellitus (GDM), antepartum, gestational diabetes method of control unspecified ([facility]) , Elevated glucose tolerance test 1 kit Daily Use four times daily to check FSBS. In the morning prior to breakfast & 1 hour after each meal for a total of 4times daily. 1 kit 10/30/2024 10/30/2025 Active blood-glucose meter (BLOOD GLUCOSE MONITORING) kit (20 sources) blood-glucose me ter (BLOOD GLUCOSE MONITORING) kit 1 each by other route in the morning. Use to check blood sugar 4 times daily . Active blood-glucose sensor (FREESTYLE JENIFER 3 PLUS SENSOR) device (11 sources) Start: 12-26-2024 take 2 doses by mouth once blood-glucose sensor (FREESTYLE JENIFER 3 PLUS SENSOR) device Indications: Gestational diabetes mellitus (GDM) in second trimester controlled on oral hypoglycemic drug Wear for 15 days and change 2 each 6 12/26/2024 Active cephalexin 500 mg oral tablet (20 sources) Cephalosporin Antibacterial Start: 08-19-2021 End: 08-29-2021 take 1 tablet by mouth twice daily cephalexin 500 mg oral tablet 500 mg = 1 tab(s), Oral, BID, X 10 day(s), # 20 tab(s), Refills(s) 0, Pharmacy: [facility] 1985, 168, cm, 08/19/21 10:50:00 EDT, Height/Length Dosing, [...] for 7 day(s), 7.5 mL, Refill(s) 0, [facility]pharmacy #[id number], 168, cm, 10/23/23 16:55:00 EDT, Height/Length Dosing, 106.2, kg, 10/23/23 16:55:00 EDT, Weight Dosing Start Date: 10/23/23 Stop Date: 10/30/23 Status: Ordered Start: 02-15-2023 End: 02-22-2023 Ciprodex 0.3%-0.1% Susp-Otic 4 drop(s), Otic, BID for 7 day(s), 7.5 mL, Refill(s) 0, Only use if drainage or pain of ear shake well before using, [facility], 168, cm, 02/15/23 9:49:00 EDT, Height/Length Dosing, 108, kg, 02/15/23 9:49:00 EDT, Weight Dosing Start Date: 02/15/23 Stop Date: 02/22/23 Status: Ordered docusate sodium 100 mg oral capsule (20 sources) take 1 capsule by mo uth in the morning docusate sodium (COLACE) 100 mg capsule Take 1 capsule (100 mg total) by mouth in the morning. Active take 2 capsules by mouth in the morning docusate sodium (Colace) 50 MG capsule Take 100 mg by mouth in the morning and 100 mg before bedtime. Active docusate sodium (COLACE PO) Take by mouth. Active 0.4 ml enoxaparin sodium 100 mg/ml prefilled syringe (20 sources) Low Molecular Weight Heparin Start: 01-19-2025 End: 02-18-2025 Enoxaparin Sodium (Lovenox) 40 MG/0.4ML solution prefilled syringe Indications: Anticoagulant long-term use , Antiphospholipid antibody positive , Antiphospholipid antibody syndrome ([facility]) Inject 40 mg as directed Daily for 30 doses 12 mL 3 01/19/2025 02/18/2025 Active Start: 01-09-2025 End: 01-13-2025 inject 0.4 mL by subcutaneous injection once enoxaparin (LOVENOX) 40 mg/0.4 mL syringe Indications: Antiphospholipid syndrome Inject 0.4 mL (40 mg total) under the skin Every 12 (twelve) hours. 24 mL 6 01/13/2025 Active Start: 05-03-2023 End: 10-29-2024 enoxaparin (LOVENOX) 40 mg/0 .4 mL Indications: Primary hypercoagulable state (HCC) , CVA, old, speech/language deficit , Cerebral hyponatremia INJECT 1 SYRINGE SUBCUTANEOUSLY EVERY 24 HOURS 90 mL 10/29/2024 Active Start: 04-06-2022 End: 09-28-2022 enoxaparin (LOVENOX) [...] hours. 36 mL 0 12/30/2021 03/30/2022 Active End: 01-09-2025 inject 40 mg by subcutaneous injection in the evening enoxaparin sodium (LOVENOX SUBQ) Inject 40 mg under the skin in the evening. 01/09/2025 Discontinued (Alternate therapy) inject 40 mg by subc utaneous injection in the evening enoxaparin sodium (LOVENOX SUBQ) Inject 40 mg under the skin in the evening. Active Comment on above: Inject 0.4 mL [...] 02/20/2020 Active enoxaparin (Lovenox) 40 MG/0.4ML injection (20 sources) enoxaparin (Lovenox) 40 MG/0.4ML injection 1 (one) time each day at the same time Active famotidine 40 mg oral tablet (20 sources) Histamine-2 Receptor Antagonist Start: 5 take 1 tablet by mouth once daily at bedtime Pepcid 40 mg Tab 40 mg = 1 tab(s), Oral, Once a day (at bedtime), # 90 tab(s), Refills(s) 4, Pharmacy: [facility], 168, cm, 06/30/24 8:36:00 EST, [...] q7day, # 4 tab(s), Refills(s) 1, Pharmacy: [facility], 168, cm, 06/09/24 14:03:00 EST, Height/Length Dosing, 98.4, kg, 06/19/24 16:19:00 EST, Weight Dosing Start Date: 06/19/24 Status: Ordered Quantity: 4.0 Unit: tab(s) Repeat number: 2 Indication: Candidiasis, unspecified fluticasone propionate 0.05 mg/actuat metered dose nasal spray (20 sources) Corticosteroid Start: 11-20-2024 End: 11-20-2025 take 1 spray(s) nasal route once daily fluticasone (Flonase) 50 MCG/ACT nasal spray Indications: Sinus headache Administer 1 spray into each nostril Daily Shake gently. Before first use, prime pump. After use, clean tip and replace cap. 16 g 3 11/20/2024 11/20/2025 Active Start: 06-09-2024 Flonase 0.05 m g/inh [place] 2 spray(s), Nasal, Daily, 16 gram, Refill(s) 11, each nostril, [facility]pharmacy #[id number], 168, cm, 06/09/24 14:03:00 EST, Height/Length Dosing, 99.1, kg, 06/09/24 14:03:00 EST, Weight Dosing Start Date: 06/09/24 Status: Ordered Quantity: 16.0 Unit: g Repeat number: 12 Start: 06-09-2024 Flonase 0.05 m g/inh [place] 2 spray(s), Nasal, Daily, 16 gram, Refill(s) 11, each nostril, [facility]/pharmacy #[id number], 168, cm, 06/09/24 14:03:00 EST, Height/Length Dosing, 99.1, kg, 06/09/24 14:03:00 EST, Weight Dosing Start Date: 06/09/24 Status: Ordered Start: 08-03-2023 Flonase 0.05 m g/inh [place] 2 spray(s), Nasal, Daily, 16 gram, Refill(s) 0, each nostril Start Date: 08/03/23 Status: Ordered isopropyl alcohol 0.7 ml/ml medicated pad (20 sources) Start: 10-30-2024 Alcohol Swabs (Alcohol Prep Pad) 70 % pads Indications: Second trimester ([facility]) , 13 weeks gestation of ([facility]) , Multigravida of advanced maternal age in second trimester ([facility]) , Gestational diabetes mellitus (GDM), antepartum, gestational diabetes method of control unspecified ([facility]) , Elevated glucose tolerance test [...] the morning. Take before meals. 30 tablet 06/02/2024 06/23/2024 Discontinued Start: 02-25-2024 End: 06-23-2025 [...] release oral tablet (20 sources) Biguanide Start: 01-19-2025 End: 02-18-2025 take 3 tablets by mouth every twenty-four hours at mealtime metFORMIN XR (Glucophage-XR) 500 MG 24 hr tablet Indications: Gestational diabetes mellitus (GDM), antepartum, gestational diabetes method of control unspecified ([facility]) Take 3 tablets (1,500 mg) by mouth in the evening. Take with meals Do not crush, chew, or split. 90 tablet 3 01/19/2025 02/18/2025 Active Start: 01-01-2025 metFORMIN XR ( GLUCOPHAGE XR) 500 mg 24 hr tablet Take 1500 mg at night. 90 tablet 4 01/01/2025 Active Start: 12-17-2024 End: 01-01-2025 metFORMIN XR (GLUCOPHAGE XR) 500 mg 24 hr tablet Take 1000 mg at night. 90 tablet 4 12/17/2024 01/01/2025 Discontinued Start: 05-13-2024 End: 06-12-2024 take 2 tablets [...] the same time 30 tablet 11 09/18/2024 01/19/2025 Discontinued Start: 10-20-2022 MetFORMIN (Eqv -Glucophage XR) 500 mg oral tablet, extended release 1,000 mg = 2 tab(s), Oral, Daily, Refills(s) 0 Start Date: 10/20/22 Status: Ordered Repeat number: 1 Start: 03-26-2022 End: 12-17-2024 metFORMIN XR (GLUCOPHAGE XR) 500 mg 24 hr tablet Take 500 mg in the morning and 1000 mg at night. 90 tablet 4 12/12/2024 12/17/2024 Discontinued (Reorder) Multiple Vitamin (Multi-Vitamin) tablet (20 sources) take [...] luna th once daily. polyethylene glycol 3350 47414 mg powder for oral solution (20 sources) Osmotic Laxative polyethylene gl ycol (GLYCOLAX) 17 gram packet Take 17 g by mouth in the morning. Active Polyethylene Glycols (4 sources) polyethylene gly col 3350 (MIRALAX PO) Take by mouth. Active 19 29 mg iron- 1 mg tablet,chewable (20 sources) Start: 10-31-2018 19 29 mg iron- 1 mg tablet,chewable Chew 1 tablet and swallow in the morning. 6 10/31/2018 Active Start: 10-31-2018 19 29 mg iron- 1 mg tablet,chewable Chew 1 tablet and swallow daily. 6 10/31/2018 Active Vit-Fe Fumarate-FA ( PO) (1 source) Start: 10-31-2018 Vit-F e Fumarate-FA ( PO) Take 1 tablet by mouth 0 10/31/2018 Active progesterone 200 mg oral capsule (20 sources) Progesterone take 1 capsule by mouth in the morning progesterone (PROMETRIUM) 200 mg capsule Take 1 capsule (200 mg total) by mouth in the morning. Active Progesterone 200 MG suppository (6 sources) Start: 09-18-2024 End: 10-30-2024 Progesterone 200 MG suppository Indications: History of [...] Active progesterone vaginal suppository 200 mg (CPD) (4 sources) progesterone vag inal suppository 200 mg [...] for 7 day(s), 8 gm, Refill(s) 0, [facility], 167, cm, 09/07/24 10:01:00 EDT, Height/Length Dosing, 96.4, kg, 09/07/24 10:01:00 EDT, Weight Dosing Start Date: 09/07/24 Stop Date: 09/14/24 Status: Ordered Quantity: 8.0 Unit: g Repeat number: 1 Indication: Acute upper respiratory infection, unspecified Vitamin D (20 sources) Start: 04-05-202 4 Vitamin D 2,000 International_Unit, Oral, qWeek, Refills(s) [...] dexAMETHasone sodium phosphate 8 mg injection (DECADRON) 3 ml insulin glargine 100 unt/ml pen injector (6 sources) Insulin Analog Start: 12-03-2024 End: 12-17-2024 insulin glargine (LANTUS SOLOSTAR U-100 INSULIN) 100 unit/mL (3 mL) insulin pen Prime with 2 units then inject 4 units SQ into abd 15 mL 3 12/03/2024 12/17/2024 Discontinued (Allergic response) insulin isophane, human 100 unt/ml injectable suspension (10 sources) Start: 12-26-2024 End: 02-06-2025 take 8 [IU] by mouth once daily insulin NPH (HumuLIN N,NovoLIN N) 100 unit/mL injection Indications: Gestational diabetes mellitus (GDM) in second trimester controlled on oral hypoglycemic drug Inj sbq in abd 8 units nightly 10 mL 6 12/26/2024 02/06/2025 Discontinued (Patient Never Started This Medication) iron sucrose 300 mg in NaCl 0.9% [...] to blood loss (chronic)] Onset: 2 Chronic Diabetes or abnormal glucose tolerance complicating ; childbirth; or the puerperium (20 sources) Gestational diabetes mellitus in , unspecified control; Translations: [Gestational diabetes mellitus in childbirth, unspecified control] Onset: 2 Episodic Disorders of teeth and jaw (11 sources) Temporomandibular [id number] syndrome; Translations: [Arthralgia of temporomandibular joint] Onset: 5 06-09-2024 Episodic Esophageal disorders (20 sources) Laryngopharyngeal reflux; Translations: [Gastro-esophageal reflux disease without esophagitis] Onset: 4 11-19-2023 Chronic Headache; including migraine (2 sources) Sinus headache; Translations: [Sinus headache] 11-20-2024 Episodic Immunizations and screening for infectious disease (20 sources) Antibody studies abnormal; Translations: [Raised antibody titer] Onset: 8 09-12-2017 Episodic Late effects of cerebrovascular disease (20 [...] [Multiple sclerosis] Onset: 8 Chronic Nutritional deficiencies (20 sources) Vitamin D deficiency; Translations: [Vitamin D deficiency, unspecified] Onset: 5 12-22-2022 Chronic Other aftercare (20 sources) Long-term current use of anticoagulant; Translations: [FPC (current) use of anticoagulants] Onset: 0 02-22-2020 Episodic Other aftercare (1 source) Other prison (current) drug therapy; Translations: [OTH COOK VACUUM KETTLE CURRENT DRUG THERAPY] Onset: 3 Episodic Other aftercare (1 source) 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; Translations: [COOK VACUUM KETTLE USE ORAL HYPOGLYCEMIC DX] Onset: 3 Episodic Other aftercare (2 sources) H/O: miscarriage; Translations: [Encounter for other specified aftercare] 06-02-2024 Episodic Other circulatory disease (4 sources) History of cerebrovascular disease; Translations: [Personal history of transient ischemic attack (TIA), and cerebral infarction without residual deficits] Onset: 0 02-08-2021 Episodic Other circulatory disease (2 sources) Personal history of transient ischemic attack (TIA), and cerebral infarction without residual deficits; Translations: [PERS HX TIA AND CI NO RESID DEFICIT] Onset: 3 Episodic Other circulatory disease (20 sources) Elevated blood-pressure reading without diagnosis of hypertension; Translations: [Elevated blood-pressure reading, without diagnosis of hypertension] Onset: 4 01-11-2023 Episodic Other circulatory disease (1 source) History [...] UNS] Onset: 2 Episodic Other complications of (11 sources) History of with abortive outcome; Translations: [Supervision of with other poor reproductive or obstetric history, second trimester] Onset: 5 01-02-2025 Episodic Other complications of (3 sources) Hypothyroidism in ; Translations: [Endocrine, nutritional and metabolic diseases complicating , second trimester] 01-02-2025 Episodic Other ear and sense organ disorders [...] conditions (not mental disorders or infectious disease) (12 sources) Encounter for screening for malignant neoplasm [...] [19 weeks gestation of ] 12-11-2024 Episodic Residual codes; unclassified (3 sources) Gestation period, 22 weeks; Translations: [22 weeks gestation of ] 01-02-2025 Episodic Residual codes; unclassified (3 sources) Family history of autism; Translations: [Family history of other mental and behavioral disorders] 01-02-2025 Episodic Residual codes; unclassified (2 sources) Gestation period, 23 weeks; Translations: [23 weeks gestation of ] 01-05-2025 Episodic Residual codes; unclassified (2 sources) Gestation period, 25 weeks; Translations: [25 weeks gestation of ] 01-19-2025 Episodic Residual codes; unclassified (1 source) Gestation period, 27 weeks; Translations: [27 weeks gestation of ] 02-06-2025 Episodic Residual codes; unclassified (1 source) 22 weeks gestation of ; Translations: [22 weeks gestation of ] Onset: Episodic Residual codes; unclassified (2 sources) Gestation period, 28 weeks; Translations: [28 weeks gestation of ] 02-09-2025 Episodic Thyroid disorders (20 sources) Hypothyroidism; Translations: [Hypothyroidism, unspecified] Onset: 0 06-10-2020 Chronic Thyroid disorders (16 sources) Disorder of thyroid, unspecified; Translations: [Disorder [...] Patient encounter status 02-05-2024 Unclassified (1 source) MFM consult Onset: 5 Unclassified (1 source) Gestational Diabetes Onset: 5 [...] than to drugs and biological substances; Translations: [Wpslt-lg-ijdceah vesicular eczema of hands and feet] Onset: [...] [Dizziness and giddiness] Onset: 9 12-24-2020 Episodic Deficiency and other anemia (20 sources) Anemia; Translations: [Anemia, unspecified] Onset: 5 Episodic Diabetes mellitus without complication (20 sources) [...] migrainosus] Onset: 8 Resolved: 0 09-12-2017 Chronic Malaise and fatigue (20 sources) Fatigue; Translations: [...] Long-term current use of drug therapy; Translations: [flame gouger (current) use of 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/antipl atelets] Onset: 9 11-15-2023 Episodic Other circulatory disease (20 sources) History of cerebrovascular accident; Translations: [Personal history of transient ischemic attack (TIA), and cerebral infarction without residual deficits] Onset: 4 07-29-2017 Episodic Comment on above: reported by pt - rel ated to antiphospholipid syndrome Other circulatory disease (20 sources) Elevated blood [...] TRI] Onset: 2 Episodic Other complications of (20 sources) Antiphospholipid syndrome; Translations: [Other diseases of the blood and blood-forming organs and certain disorders involving the immune mechanism complicating , unspecified trimester] Onset: 0 07-07-2019 Episodic Other complications of (20 sources) Multigravida of advanced maternal age; Translations: [Supervision of elderly multigravida, second trimester] Onset: 5 10-30-2024 Episodic Other complications of (1 source) Other diseases of the blood and blood-forming organs and certain disorders involving the immune mechanism complicating , unspecified trimester; Translations: [Other diseases of the blood and blood-forming organs and certain disorders involving the immune mechanism complicating , unspecified trimester] Onset: 0 Episodic Other complications of (1 source) Supervision of elderly multigravida, second trimester; Translations: [Supervision of elderly multigravida, second trimester] Onset: 5 Episodic Other ear and sense organ disorders [...] NONINFLAMMATORY D/O VAGINA] Onset: 2 Episodic Other female genital disorders (2 sources) Pelvic and perineal pain; Translations: [Pelvic and perineal pain] Onset: 9 11-15-2023 Episodic Other hematologic conditions (20 sources) H/O: [...] 04-27-2023 Episodic Other skin disorders (20 sources) Tacqz-vw-ekwlbxl vesicular eczema of hands and feet; Translations: [...] Range Facility Urinalysis macro (dipstick) panel (U)on 02-09-2025 Bilirubin, UA Negative Negative - 4(70) +++ mg/dL [facility] Blood, UA Negative Negative - 50 Max/mcL [facility] Clarity, UA Clear [facility] Color, UA Yellow [facility] Glucose, UA Negative Negative - 1999(110) ++++ mg/dL [facility] Interpretation and review of laboratory results Abnormal [facility] Ketones, UA Negative Negative - 160(16) ++++ mg/dL [facility] Leukocytes, UA Trace Negative - 500+++ John/mcL [facility] Nitrite, UA Negative Negative - Positive [facility] pH, UA 6.5 5 - 9 [facility] Protein, UA Negative Negative - 1999(20) ++++ mg/dL [facility] Spec Grav, UA 1.005 1 - 1.03 [facility] Urobilinogen, UA 2.0 0.2 - 12 mg/dL [facility] CNPNon 01-29-2025 CNPN Telephone (HEMASA) SANNA RENDON ([id number]) 1985 F Date Time Provider Department 01/29/25 RACHAEL JOHNSON HEMASA During your visit today, we recorded the following information about you: Rachael Johnson RN 01/29/2025 10:57 AM Signed Pt called to report increased fatigue. She states the first day of increasing the lovenox to 40 mg BID from daily, she was really tired. Yesterday improved and today she is again really run down. Reviewed labs from 12/23/24, as she thought her iron labs had not recently been checked. No abnormal bleeding or bruising. Encouraged to call OB to discuss Providers: Thoughts? MARSHA Rush Holly, VICTOR HUGO.BILINGUAL INTERPRETER 02/05/2025 9:58 AM Signed Please call patient with update on what her OB recommended. Thanks, Katherine Negrete APRN.Rachael Brown RN 02/05/2025 11:13 AM Signed VM left for update. Encouraged to call back to discuss Rachael Johnson RN Allergies As of Date: 01/29/2025 Noted Allergy Reaction CIPROFLOXACIN 05/19/2019 14 - [...] GI Upset Crampy and gassy Date Reviewed: 12/24/2024 Reviewed by: Katherine Negrete APRN.BILINGUAL INTERPRETER - Fully Assessed Reason for Visit: Fatigue [46] Prescriptions as of 02/05/2025 - levothyroxine (SYNTHROID) 25 mcg tablet TAKE 1 TABLET BY MOUTH IN THE MORNING BEFORE MEAL(S) - enoxaparin (LOVENOX) 40 mg/0.4 mL INJECT [...] once daily. Problem List As Of Date 01/29/2025 Noted Resolved Antiphospholipid antibody positive [R76.0] 09/10/2017 [...] 05/28/2024 Encounter Status:Closed by RACHAEL JOHNSON on 01/30/25 [facility] CNPNon 01-26-2025 CNPN Telephone (HEMASA) SANNA RENDON ([id number]) 1985 F Date Time Provider Department 01/26/25 RACHAEL JOHNSON HEMASA During your visit today, we recorded the following information about you: Rachael Johnson RN 01/26/2025 8:30 AM Signed 12/23/24 Office note: SUMMARIZED PLAN OF CARE: Continue Lovenox - patient prefers 40 mg (rather than rec 80mg) Encouraged her to reconsider FYI: Pt called to inform that her OB has increased her Lovenox to 40 mg BID. (80 mg daily dose) Rachael Johnson RN Allergies As of Date: 01/26/2025 Noted Allergy Reaction CIPROFLOXACIN 05/19/2019 14 - [...] GI Upset Crampy and gassy Date Reviewed: 12/24/2024 Reviewed by: Katherine Negrete APRN.BILINGUAL INTERPRETER - Fully Assessed Prescriptions as of 01/26/2025 - levothyroxine (SYNTHROID) 25 mcg tablet TAKE 1 TABLET BY MOUTH IN THE MORNING BEFORE MEAL(S) - enoxaparin (LOVENOX) 40 mg/0.4 mL INJECT [...] once daily. Problem List As Of Date 01/26/2025 Noted Resolved Antiphospholipid antibody positive [R76.0] 09/10/2017 [...] 05/28/2024 Encounter Status:Closed by RACHAEL JOHNSON on 01/26/25 Normal [facility] Urinalysis macro (dipstick) panel (U)on 01-19-2025 Bilirubin, UA Negative Negative - 4(70) +++ mg/dL [facility] Blood, UA Negative Negative - 50 Max/mcL [facility] Clarity, UA Clear [facility] Color, UA Yellow [facility] Glucose, UA Negative Negative - 1999(110) ++++ mg/dL [facility] Interpretation and review of laboratory results Normal [facility] Ketones, UA Negative Negative - 160(16) ++++ mg/dL [facility] Leukocytes, UA Negative Negative - 500+++ John/mcL [facility] Nitrite, UA Negative Negative - Positive [facility] pH, UA 6 5 - 9 [facility] Protein, UA Negative Negative - 1999(20) ++++ mg/dL [facility] Spec Grav, UA 1.01 1 - 1.03 [facility] Urobilinogen, UA 0.2 0.2 - 12 mg/dL [facility] TSHon 01-17-2025 TSH Qn 1.85 m[IU]/L Normal 0.34-5.60 [facility] Comment on above: Performed By: #### 2 [id number] #### [facility] [address] [place] [address] Urinalysis macro (dipstick) panel (U)on 01-05-2025 Bilirubin, UA Negative Negative - 4(70) +++ mg/dL [facility] Blood, UA Negative Negative - 50 Max/mcL [facility] Clarity, UA Clear [facility] Color, UA Yellow [facility] Glucose, UA Negative Negative - 1999(110) ++++ mg/dL [facility] Interpretation and review of laboratory results Normal [facility] Ketones, UA Negative Negative - 160(16) ++++ mg/dL [facility] Leukocytes, UA Negative Negative - 500+++ John/mcL [facility] Nitrite, UA Negative Negative - Positive [facility] pH, UA 7 5 - 9 [facility] Protein, UA Negative Negative - 1999(20) ++++ mg/dL [facility] Spec Grav, UA 1.01 1 - 1.03 [facility] Urobilinogen, UA 1.0 0.2 - 12 mg/dL [facility] CBC W Auto Differential pane l (Bld)on 12-23-2024 Basophils (Bld) [#/Vol] 10*3/uL Normal <0.11 [facility] Comment on above: Order Comment: Speci men Type: BLOOD SPECIMENOrdering Facility: [facility] Address: [address] [place] [address] Performed By: #### 5 7021-8 ####[facility] LABCLIA [id number] [place] [address] Basophils/100 WBC (Bld) 0.2 % Normal [facility] Comment on above: Order Comment: Speci men Type: BLOOD SPECIMENOrdering Facility: [facility] Address: [address] [place] [address] Performed By: #### 5 7021-8 ####[facility] LABCLIA [id number] [place] [address] Differential cell count method Nom (Bld) Auto Normal [facility] Comment on above: Order Comment: Speci men Type: BLOOD SPECIMENOrdering Facility: [facility] Address: [address] [place] [address] Performed By: #### 5 7021-8 ####[facility] LABCLIA [id number] [place] [address] Eosinophils (Bld) [#/Vol] 0.03 10*3/uL Normal <0.46 [facility] Comment on above: Order Comment: Speci men Type: BLOOD SPECIMENOrdering Facility: [facility] Address: [address] [place] [address] Performed By: #### 5 7021-8 ####[facility] LABCLIA [id number] [place] [address] Eosinophils/100 WBC (Bld) 0.4 % Normal [facility] Comment on above: Order Comment: Speci men Type: BLOOD SPECIMENOrdering Facility: [facility] Address: [address] [place] [address] Performed By: #### 5 7021-8 ####[facility] LABCLIA [id number] [place] [address] Erythrocyte distribution width (RBC) [Ratio] 13.5 % Normal 11.5-15.0 [facility] Comment on above: Order Comment: Speci men Type: BLOOD SPECIMENOrdering Facility: [facility] Address: [address] [place] [address] Performed By: #### 5 7021-8 ####[facility] LABCLIA [id number] [place] [address] Hematocrit (Bld) [Volume fraction] 34.6 % Low 36.0-46.0 [facility] Comment on above: Order Comment: Speci men Type: BLOOD SPECIMENOrdering Facility: [facility] Address: [address] [place] [address] Performed By: #### 5 7021-8 ####[facility] LABCLIA [id number] [place] [address] Hemoglobin (Bld) [Mass/Vol] 12.0 g/dL Normal 11.5-15.5 [facility] Comment on above: Order Comment: Speci men Type: BLOOD SPECIMENOrdering Facility: [facility] Address: [address] [place] [address] Performed By: #### 5 7021-8 ####[facility] LABCLIA [id number] [place] [address] Immature granulocytes (Bld) [#/Vol] 0.04 10*3/uL Normal <0.10 [facility] Comment on above: Order Comment: Speci men Type: BLOOD SPECIMENOrdering Facility: [facility] Address: [address] [place] [address] Performed By: #### 5 7021-8 ####[facility] LABCLIA [id number] [place] [address] Immature granulocytes/100 WBC (Bld) 0.5 % Normal [facility] Comment on above: Order Comment: Speci men Type: BLOOD SPECIMENOrdering Facility: [facility] Address: [address] [place] [address] Performed By: #### 5 7021-8 ####[facility] LABCLIA [id number] [place] [address] Lymphocytes (Bld) [#/Vol] 2.45 10*3/uL Normal 1.00-4.00 [facility] Comment on above: Order Comment: Speci men Type: BLOOD SPECIMENOrdering Facility: [facility] Address: [address] [place] [address] Performed By: #### 5 7021-8 ####[facility] LABCLIA [id number] [place] [address] Lymphocytes/100 WBC (Bld) 28.7 % Normal [facility] Comment on above: Order Comment: Speci men Type: BLOOD SPECIMENOrdering Facility: [facility] Address: [address] [place] [address] Performed By: #### 5 7021-8 ####[facility] LABCLIA [id number] [place] [address] MCH (RBC) [Entitic mass] 31.6 pg Normal 26.0-34.0 [facility] Comment on above: Order Comment: Speci men Type: BLOOD SPECIMENOrdering Facility: [facility] Address: [address] [place] [address] Performed By: #### 5 7021-8 ####[facility] LABCLIA [id number] [place] [address] MCHC (RBC) [Mass/Vol] 34.7 g/dL Normal 30.5-36.0 [facility] Comment on above: Order Comment: Speci men Type: BLOOD SPECIMENOrdering Facility: [facility] Address: [address] [place] [address] Performed By: #### 5 7021-8 ####[facility] LABCLIA [id number] [place] [address] MCV (RBC) [Entitic vol] 91.1 fL Normal 80.0-100.0 [facility] Comment on above: Order Comment: Speci men Type: BLOOD SPECIMENOrdering Facility: [facility] Address: [address] [place] [address] Performed By: #### 5 7021-8 ####[facility] LABCLIA [id number] [place] [address] Monocytes (Bld) [#/Vol] 0.44 10*3/uL Normal <0.87 [facility] Comment on above: Order Comment: Speci men Type: BLOOD SPECIMENOrdering Facility: [facility] Address: [address] [place] [address] Performed By: #### 5 7021-8 ####[facility] LABCLIA [id number] [place] [address] Monocytes/100 WBC (Bld) 5.1 % Normal [facility] Comment on above: Order Comment: Speci men Type: BLOOD SPECIMENOrdering Facility: [facility] Address: [address] [place] [address] Performed By: #### 5 7021-8 ####[facility] LABCLIA [id number] [place] [address] Neutrophils (Bld) [#/Vol] 5.57 10*3/uL Normal 1.45-7.50 [facility] Comment on above: Order Comment: Speci men Type: BLOOD SPECIMENOrdering Facility: [facility] Address: [address] [place] [address] Performed By: #### 5 7021-8 ####[facility] LABCLIA [id number] [place] [address] Neutrophils/100 WBC (Bld) 65.1 % Normal [facility] Comment on above: Order Comment: Speci men Type: BLOOD SPECIMENOrdering Facility: [facility] Address: [address] [place] [address] Performed By: #### 5 7021-8 ####[facility] LABCLIA [id number] [place] [address] Nucleated RBC (Bld) [#/Vol] 10*3/uL Normal <0.01 [facility] Comment on above: Order Comment: Speci men Type: BLOOD SPECIMENOrdering Facility: [facility] Address: [address] [place] [address] Performed By: #### 5 7021-8 ####[facility] LABCLIA [id number] [place] [address] Nucleated RBC/100 WBC (Bld) [Ratio] 0.0 /100 WBC Normal [facility] Comment on above: Order Comment: Speci men Type: BLOOD SPECIMENOrdering Facility: [facility] Address: [address] [place] [address] Performed By: #### 5 7021-8 ####[facility] LABIA [id number] [place] [address] Platelet mean volume (Bld) [Entitic vol] 9.7 fL Normal 9.0-12.7 [facility] Comment on above: Order Comment: Speci men Type: BLOOD SPECIMENOrdering Facility: [facility] Address: [address] [place] [address] Performed By: #### 5 7021-8 ####[facility] LABCLIA [id number] [place] [address] Platelets (Bld) [#/Vol] 260 10*3/uL Normal 150-400 [facility] Comment on above: Order Comment: Speci men Type: BLOOD SPECIMENOrdering Facility: [facility] Address: [address] [place] [address] Performed By: #### 5 7021-8 ####[facility] LABIA [id number] [place] [address] RBC (Bld) [#/Vol] 3.80 10*6/uL Low 3.90-5.20 [facility] Comment on above: Order Comment: Speci men Type: BLOOD SPECIMENOrdering Facility: [facility] Address: [address] [place] [address] Performed By: #### 5 7021-8 ####[facility] [id number] [place] [address] WBC (Bld) [#/Vol] 8.55 10*3/uL Normal 3.70-11.00 [facility] Comment on above: Order Comment: Speci men Type: BLOOD SPECIMENOrdering Facility: [facility] Address: [address] [place] [address] Performed By: #### 5 7021-8 ####[facility] LABIA [id number] [place] [address] CNOVSPon 12-23-2024 CNOVSP Visit (SP) Office ( EMASA) SANNA RENDON ([id number]) 1985 F Date Time Provider Department 12/23/24 11:30 AM KATHERINE NEGRETE During your visit today, we recorded the following information about you: Temperature Pulse Respiration Blood pressure 97.6 degrees 80/minute 16/minute 103/69 Weight Height 94.4 kg 1.677 m Katherine Negrete APRN.CNP 12/24/2024 9:07 PM Signed NAME: Sanna Rendon CLINIC NO.: [id number] DATE OF SERVICE: December 23, 2024 (Arsh) Some elements in this clinic note that are critical to medical decision making have been carefully reviewed and included from a prior clinic note dated: October 28, 2024 (Arsh) Additional Clinicians involved in Sanna Rendon's care: Jorge Mcwilliams, Humaira Gaviria, Dr. Boothe CC: Hypercoag state CASE SUMMARY / ASSESSMENT: 39 year old woman presents with a prior history of CVA in 2016 and an antiphospholipid antibody that was identified much later in 2018. These were found in [place], [place]. I don't have access to these [...] a target-like rash shortly before presenting to [facility] in 2015 with headaches and was [...] of April 2024. SUMMARIZED PLAN OF CARE: Continue Lovenox - patient prefers 40 mg (rather than rec 80mg) Encouraged her to reconsider Continue B12 RTC in 8 weeks Labs same day - ____ HPI: Updated Visit, December 23, 2024: Patient is a 39-year-old female, , currently 21 weeks , with a history of gestational diabetes, APS, and CVA, managed with Lovenox and metformin ER 1000 mg. She reports developing a hematoma at the injection site (right lateral mid abdomen) after administering Lovenox, noting that the area is softening. She was in a hurry and may have injected the medication faster than usual. She is currently on metformin ER 1000 mg for gestational diabetes, with fasting blood glucose levels over 100 mg/dL and postprandial levels under 100 mg/dL. She initially experienced cramping for two days after the dosage increase but denies any diarrhea. She previously had an adverse reaction to Lantus, including tachycardia, dyspnea, diaphoresis, and low-grade fevers, leading to its discontinuation. She has a history of severe electrolyte imbalances after taking baby aspirin, including significant hyponatremia and hypokalemia accompanied by symptoms such as feeling unwell, slurred speech, and abnormal heart rhythms. These episodes led to emergency room visits. She is concerned about the potential recommendation to resume baby aspirin due to her history of APS and advanced maternal age. She was recently evaluated in labor and delivery for cramping, given her history of cervical dilation at 24 weeks in a previous . She was not found to be dilated during this visit. She has not yet had her anatomy scan or maternal- medicine (MFM) consultation regarding her blood thinners. Her hemoglobin level has decreased from 13 g/dL on October 28 to 12 g/dL today. Platelet count is stable at 260,000/?L, and white blood cell count is within normal limits. Previous vitamin D level was 32.1 ng/mL. She is currently taking vitamins. Updated Visit, 10/28/2024: Patient with a history [...] vitamins and plans to restart vitamin D supplementat (more content not included)... Normal [facility] Comprehensive metabolic 2000 panelon 12-23-2024 Albumin [Mass/Vol] 4.1 g/dL Normal 3.9-4.9 [facility] Comment on above: Order Comment: Speci men Type: BLOOD SPECIMENOrdering Facility: [facility] Address: [address] [place] [id number] Performed By: #### 2 4323-8 ####[facility] LABCLIA [id number] [place] [address] ALP [Catalytic activity/Vol] 43 U/L Normal 34-123 [facility] Comment on above: Order Comment: Speci men Type: BLOOD SPECIMENOrdering Facility: [facility] Address: [address] [place] [address] Performed By: #### 2 4323-8 ####[facility] LABCLIA [id number] [place] [address] ALT [Catalytic activity/Vol] 11 U/L Normal 7-38 [facility] Comment on above: Order Comment: Speci men Type: BLOOD SPECIMENOrdering Facility: [facility] Address: [address] [place] [address] Performed By: #### 2 4323-8 ####[facility] LABCLIA [id number] [place] [address] Anion gap [Moles/Vol] 12 mmol/L Normal 8-15 [facility] Comment on above: Order Comment: Speci men Type: BLOOD SPECIMENOrdering Facility: [facility] Address: [address] [place] [address] Performed By: #### 2 4323-8 ####[facility] LABCLIA [id number] [place] [address] AST [Catalytic activity/Vol] 12 U/L Low 13-35 [facility] Comment on above: Order Comment: Speci men Type: BLOOD SPECIMENOrdering Facility: [facility] Address: [address] [place] [address] Performed By: #### 2 4323-8 ####[facility] LABCLIA [id number] [place] [address] Bilirubin [Mass/Vol] 0.2 mg/dL Normal 0.2-1.3 [facility] Comment on above: Order Comment: Speci men Type: BLOOD SPECIMENOrdering Facility: [facility] Address: [address] [place] [address] Performed By: #### 2 4323-8 ####[facility] LABCLIA [id number] [place] [address] Calcium [Mass/Vol] 9.5 mg/dL Normal 8.5-10.2 [facility] Comment on above: Order Comment: Speci men Type: BLOOD SPECIMENOrdering Facility: [facility] Address: [address] [place] [address] Performed By: #### 2 4323-8 ####[facility] LABCLIA [id number] [place] [address] Chloride [Moles/Vol] 98 mmol/L Normal 98-107 [facility] Comment on above: Order Comment: Speci men Type: BLOOD SPECIMENOrdering Facility: [facility] Address: [address] [place] [address] Performed By: #### 2 4323-8 ####[facility] LABCLIA [id number] [place] [address] CO2 [Moles/Vol] 20 mmol/L Low 22-30 [facility] Comment on above: Order Comment: Speci men Type: BLOOD SPECIMENOrdering Facility: [facility] Address: [address] [place] [address] Performed By: #### 2 4323-8 ####[facility] LABCLIA [id number] [place] [address] Creatinine [Mass/Vol] 0.54 mg/dL Low 0.58-0.96 [facility] Comment on above: Order Comment: Speci men Type: BLOOD SPECIMENOrdering Facility: [facility] Address: [address] [place] [address] Performed By: #### 2 4323-8 ####[facility] LABCLIA [id number] [place] [address] eGFRcr SerPlBld CKD-EPI 2020 120 mL/min/1.73m??? Normal >=60 [facility] Comment on above: Order Comment: Cesar redd Type: BLOOD SPECIMENOrdering Facility: [facility] Address: [address] [place] [address] Result Comment: Hawa mated Glomerular Filtration Rate [...] actual GFR. Performed By: #### 2 4323-8 ####[facility] LABCLIA [id number] [place] [address] Glucose [Mass/Vol] 104 mg/dL High 74-99 [facility] Comment on above: Order Comment: Cesar redd Type: BLOOD SPECIMENOrdering Facility: [facility] Address: [address] [id number] Result Comment: The [place] [employer] (ADA) provides guidance for cutoff [...] Standards of Medical Care in Diabetes 2016, [place] [employer]. Diabetes Care. 2016.39(Suppl 1). Performed By: #### 2 4323-8 ####[facility] LABCLIA [id number] [place] [address] Potassium [Moles/Vol] 4.0 mmol/L Normal 3.7-5.1 [facility] Comment on above: Order Comment: Cesar redd Type: BLOOD SPECIMENOrdering Facility: [facility] Address: [address] [place] [address] Performed By: #### 2 4323-8 ####[facility] LABCLIA [id number] [place] [address] Protein [Mass/Vol] 6.7 g/dL Normal 6.3-8.0 [facility] Comment on above: Order Comment: Speci men Type: BLOOD SPECIMENOrdering Facility: [facility] Address: [address] [place] [address] Performed By: #### 2 4323-8 ####[facility] LABCLIA [id number] [place] [address] Sodium [Moles/Vol] 130 mmol/L Low 136-144 [facility] Comment on above: Order Comment: Speci men Type: BLOOD SPECIMENOrdering Facility: [facility] Address: [address] [place] [address] Performed By: #### 2 4323-8 ####[facility] LABCLIA [id number] [place] [address] Urea nitrogen [Mass/Vol] 7 mg/dL Normal 7-21 [facility] Comment on above: Order Comment: Speci men Type: BLOOD SPECIMENOrdering Facility: [facility] Address: [address] [place] [address] Performed By: #### 2 4323-8 ####[facility] LABCLIA [id number] [place] [address] Ferritin SerPl-mCncon 2024 Ferritin [Mass/Vol] 43.5 ng/mL Normal 14.7-205.1 [facility] Comment on above: Order Comment: Speci men Type: BLOOD SPECIMENOrdering Facility: [facility] Address: [address] [place] [address] Performed By: #### 2 276-4, 27155-3, 2132-9 ####[facility] LABCLIA [id number] [address] [place] Iron and Iron binding capaci ty panelon 12-23-2024 Iron [Mass/Vol] 80 ug/dL Normal 41-186 [facility] Comment on above: Order Comment: Speci men Type: BLOOD SPECIMENOrdering Facility: [facility] Address: [address] [place] [address] Performed By: #### 2 276-4, 98500-9, 2131-12 ####[facility] LABCLIA [id number] [place] [address] [place] Iron binding capacity [Mass/Vol] 437 ug/dL High 232-386 [facility] Comment on above: Order Comment: Speci men Type: BLOOD SPECIMENOrdering Facility: [facility] Address: [address] [place] [address] Performed By: #### 2 276-4, 95008-1, 2131-12 ####[facility] LABIA [id number] [place] [address] [place] Iron/TIBC [Molar ratio] 18.3 % Normal 15.0-57.0 [facility] Comment on above: Order Comment: Speci men Type: BLOOD SPECIMENOrdering Facility: [facility] Address: [address] [place] [address] Performed By: #### 2 276-4, 25536-7, 2131-12 ####[facility] LABIA [id number] [place] [id number] [place] Vit B12 SerPl-mCncon 025 Cobalamin (Vitamin B12) [Mass/Vol] 328 pg/mL Normal 232-1245 [facility] Comment on above: Order Comment: Speci men Type: BLOOD SPECIMENOrdering Facility: [facility] Address: [address] [place] [address] Performed By: #### 2 276-4, 06262-7, 2131-12 ####[facility] LABCLIA [id number] [place] [id number] [place] [facility] UA (CLEAN/CATCH) CLERICAL TRANSCRIBER/PAUL RO IF IND.on 12-16-2024 BILIRUBIN URINE Negative NEGATIVE [facility] BLOOD URINE Negative NEGATIVE [facility] Clarity (U) CLEAR CLEAR [facility] Color (U) LT. YELLOW YELLOW [facility] GLUCOSE URINE UA Negative NEGATIVE mg/dL [facility] Interpretation and review of laboratory results Abnormal [facility] Ketones Ql (U) Negative NEGATIVE mg[facility] Leukocyte esterase Test strip Ql (U) SMALL Abnormal NEGATIVE [facility] NITRITE URINE Negative NEGATIVE [facility] pH (U) 6.0 [pH] 5.0 - 9.0 [facility] PROTEIN URINE Negative NEG/TRACE mg/dL [facility] SPECIFIC GRAVITY URINE <=1.005 Abnormal 1.005 - 1.025 [facility] URINE MICROSCOPIC INDICATED YES [facility] UROBILINOGEN URINE 0.2 EU/dL 0.2 - 1.0 EU/dL [facility] US OB CERVICAL LENGTHon 11-28 [place] [address] Ultrasound Report Signed Patient: SANNA RENDON MR#: [id number] : 1985 Acct:[id number] Age/Sex: 39 / F ADM Date: Loc: [facility] 251-[address]: Wilton Herrmann D.O. Ordering Physician: Wilton Herrmann D.O. Date of Service: 12/16/24 Procedure(s): US OB cervical length Accession Number(s): [id number] cc: Wilton Herrmann D.O.; PENELOPE CASAS [place] [id number] Patient Name: SANNA RENDON MRN: TBH:[id number] date: 1985 Sex: F Assigned Patient Location: [facility] Current Patient Location: Accession/Order Number: [id number] Exam Date: 12/16/2024 20:39 Report Date: 12/16/2024 20:41 At the request of: WILTON HERRMANN DO Procedure: US OB cervical length Limited ultrasound HISTORY: Abdominal cramping for one day Fetus in cephalic presentation with longitudinal lie. Amniotic fluid subjectively normal. Placenta is in posterior position. The placental tip is 7 cm from the internal os. The heart rate is 157 bpm. somatic motion identified. The cervical length is 3.6 cm and closed. US/US OB cervical length IMPRESSION: 3.6 cm cervical length with closed os. Single live intrauterine gestation. Impression dictated by: Robert Beltrán M.D. 12/16/2024 8:41 PM Dictation Location: [facility] Electronically authenticated by: [id number] Y Date: 12/16/2024 20:41 Dictated By: Robert Beltrán D.O. Signed By: 12/16/242042 DD/ 40 TD/TT: [employer]: [facility] Radiology, Radiologmoe harrell MD - 12/16/2024 [place] [address] Ultrasound Report Signed Patient: SANNA RENDON MR#: [id number] : 1985 Acct:[id number] Age/Sex: 39 / F ADM Date: Loc: [facility] 251-[address]: Wilton Herrmann D.O. Ordering Physician: Wilton Herrmann D.O. Date of Service: 12/16/24 Procedure(s): US OB cervical length Accession Number(s): [id number] cc: Wilton Herrmann D.O.; PENELOPE CASAS [place] [id number] Patient Name: SANNA RENDON MRN: [facility]:[id number] date: 1985 Sex: F Assigned Patient Location: [facility] Current Patient Location: Accession/Order Number: [id number] Exam Date: 12/16/2024 20:39 Report Date: 12/16/2024 20:41 At the request of: WILTON HERRMANN DO Procedure: US OB cervical length Limited ultrasound HISTORY: Abdominal cramping for one day Fetus in cephalic presentation with longitudinal lie. Amniotic fluid subjectively normal. Placenta is in posterior position. The placental tip is 7 cm from the internal os. The heart rate is 157 bpm. somatic motion identified. The cervical length is 3.6 cm and closed. US/US OB cervical length IMPRESSION: 3.6 cm cervical length with closed os. Single live intrauterine gestation. Impression dictated by: Robert Beltrán M.D. 12/16/2024 8:41 PM Dictation Location: [facility] Electronically authenticated by: [id number] Y Date: 12/16/2024 20:41 Dictated By: Robert Beltrán D.O. Signed By: 12/16/242042 DD/ 40 TD/TT: [employer]: [facility] Radiology Study observation (narrative) [facility] US OB CERVICAL LENGTHOrdered By: Radiologist Radiology on 12-16-2024 [facility] Work Phone: ALL THYROID STIM HORMONEon 0 12-11-2024 TSH Qn 1.508 m[IU]/L [facility] Urinalysis macro (dipstick) panel (U)on 12-11-2024 Bilirubin, UA Negative Negative - 4(70) +++ mg/dL [facility] Blood, UA Negative Negative - 50 Max/mcL [facility] Clarity, UA Clear [facility] Color, UA Yellow [facility] Glucose, UA Negative Negative - 1999(110) ++++ mg/dL [facility] Interpretation and review of laboratory results Normal [facility] Ketones, UA Negative Negative - 160(16) ++++ mg/dL [facility] Leukocytes, UA Negative Negative - 500+++ John/mcL [facility] Nitrite, UA Negative Negative - Positive [facility] pH, UA 6 5 - 9 [facility] Protein, UA Negative Negative - 1999(20) ++++ mg/dL [facility] Spec Grav, UA 1.01 1 - 1.03 [facility] Urobilinogen, UA 1.0 0.2 - 12 mg/dL [facility] Urinalysis macro (dipstick) panel (U)on 11-20-2024 Bilirubin, UA Negative Negative - 4(70) +++ mg/dL [facility] Blood, UA Negative Negative - 50 Max/mcL [facility] Clarity, UA Clear [facility] Color, UA Yellow [facility] Glucose, UA Negative Negative - 1999(110) ++++ mg/dL [facility] Interpretation and review of laboratory results Normal [facility] Ketones, UA Negative Negative - 160(16) ++++ mg/dL [facility] Leukocytes, UA Negative Negative - 500+++ John/mcL [facility] Nitrite, UA Negative Negative - Positive [facility] pH, UA 6.5 5 - 9 [facility] Protein, UA Negative Negative - 1999(20) ++++ mg/dL [facility] Spec Grav, UA 1.005 1 - 1.03 [facility] Urobilinogen, UA 0.2 0.2 - 12 mg/dL [facility] Glucose random or fasting- P OCTon 11-19-2024 External Glucose Fasting Or Random (Fbs) 94 [facility] Urinalysis macro (dipstick) panel (U)on 10-30-2024 Bilirubin, UA Negative Negative - 4(70) +++ mg/dL [facility] Blood, UA Negative Negative - 50 Max/mcL [facility] Clarity, UA Clear [facility] Color, UA Yellow [facility] Glucose, UA Negative Negative - 1999(110) ++++ mg/dL [facility] Interpretation and review of laboratory results Normal [facility] Ketones, UA Negative Negative - 160(16) ++++ mg/dL [facility] Leukocytes, UA Negative Negative - 500+++ John/mcL [facility] Nitrite, UA Negative Negative - Positive [facility] pH, UA 7 5 - 9 [facility] Protein, UA Negative Negative - 1999(20) ++++ mg/dL [facility] Spec Grav, UA 1.01 1 - 1.03 [facility] Urobilinogen, UA 0.2 0.2 - 12 mg/dL [facility] 25(OH)D3 [facility] 2024 25-hydroxyvitamin D3 [Mass/Vol] 32.1 ng/mL Normal 31.0-80.0 [facility] Comment on above: Order Comment: Speci men Type: BLOOD SPECIMENOrdering Facility: [facility] Address: [address] [place] [address] Result Comment: Clas sification of 25 [place] Vitamin D status: Deficiency/Insufficiency: < or = 30 ng/ml. Sufficiency/Optimal Levels: 31-80 ng/mL Toxicity: > 100 ng/mL. Test performed by chemiluminescent immunoassay. Performed By: #### 1 989-3 ####[facility] LABCLIA [id number] [place] [address] [place] CBC W Auto Differential pane l (Bld)on 10-28-2024 Basophils (Bld) [#/Vol] 0.03 10*3/uL Normal <0.11 [facility] Comment on above: Order Comment: Speci men Type: BLOOD SPECIMENOrdering Facility: [facility] Address: [address] [place] [address] Performed By: #### 5 7021-8 ####[facility] LABCLIA [id number] [place] [address] Basophils/100 WBC (Bld) 0.3 % Normal [facility] Comment on above: Order Comment: Speci men Type: BLOOD SPECIMENOrdering Facility: [facility] Address: [address] [place] [address] Performed By: #### 5 7021-8 ####[facility] LABCLIA [id number] [place] [address] Differential cell count method Nom (Bld) Auto Normal [facility] Comment on above: Order Comment: Speci men Type: BLOOD SPECIMENOrdering Facility: [facility] Address: [address] [place] [address] Performed By: #### 5 7021-8 ####[facility] LABCLIA [id number] [place] [address] Eosinophils (Bld) [#/Vol] 0.05 10*3/uL Normal <0.46 [facility] Comment on above: Order Comment: Speci men Type: BLOOD SPECIMENOrdering Facility: [facility] Address: [address] [place] [address] Performed By: #### 5 7021-8 ####[facility] LABCLIA [id number] [place] [address] Eosinophils/100 WBC (Bld) 0.5 % Normal [facility] Comment on above: Order Comment: Speci men Type: BLOOD SPECIMENOrdering Facility: [facility] Address: [address] [place] [address] Performed By: #### 5 7021-8 ####[facility] LABCLIA [id number] [place] [address] Erythrocyte distribution width (RBC) [Ratio] 14.5 % Normal 11.5-15.0 [facility] Comment on above: Order Comment: Speci men Type: BLOOD SPECIMENOrdering Facility: [facility] Address: [address] [place] [address] Performed By: #### 5 7021-8 ####[facility] LABCLIA [id number] [place] [address] Hematocrit (Bld) [Volume fraction] 36.9 % Normal 36.0-46.0 [facility] Comment on above: Order Comment: Speci men Type: BLOOD SPECIMENOrdering Facility: [facility] Address: [address] [place] [address] Performed By: #### 5 7021-8 ####[facility] LABCLIA [id number] [place] [address] Hemoglobin (Bld) [Mass/Vol] 13.0 g/dL Normal 11.5-15.5 [facility] Comment on above: Order Comment: Speci men Type: BLOOD SPECIMENOrdering Facility: [facility] Address: [address] [place] [address] Performed By: #### 5 7021-8 ####[facility] LABCLIA [id number] [place] [address] Immature granulocytes (Bld) [#/Vol] 10*3/uL Normal <0.10 [facility] Comment on above: Order Comment: Speci men Type: BLOOD SPECIMENOrdering Facility: [facility] Address: [address] [place] [address] Performed By: #### 5 7021-8 ####[facility] LABCLIA [id number] [place] [address] Immature granulocytes/100 WBC (Bld) 0.2 % Normal [facility] Comment on above: Order Comment: Speci men Type: BLOOD SPECIMENOrdering Facility: [facility] Address: [address] [place] [address] Performed By: #### 5 7021-8 ####[facility] LABCLIA [id number] [place] [address] Lymphocytes (Bld) [#/Vol] 2.50 10*3/uL Normal 1.00-4.00 [facility] Comment on above: Order Comment: Speci men Type: BLOOD SPECIMENOrdering Facility: [facility] Address: [address] [place] [address] Performed By: #### 5 7021-8 ####[facility] LABCLIA [id number] [place] [address] Lymphocytes/100 WBC (Bld) 26.3 % Normal [facility] Comment on above: Order Comment: Speci men Type: BLOOD SPECIMENOrdering Facility: [facility] Address: [address] [place] [address] Performed By: #### 5 7021-8 ####[facility] LABCLIA [id number] [place] [address] MCH (RBC) [Entitic mass] 30.6 pg Normal 26.0-34.0 [facility] Comment on above: Order Comment: Speci men Type: BLOOD SPECIMENOrdering Facility: [facility] Address: [address] [place] [address] Performed By: #### 5 7021-8 ####[facility] LABCLIA [id number] [place] [address] MCHC (RBC) [Mass/Vol] 35.2 g/dL Normal 30.5-36.0 [facility] Comment on above: Order Comment: Speci men Type: BLOOD SPECIMENOrdering Facility: [facility] Address: [address] [place] [address] Performed By: #### 5 7021-8 ####[facility] LABCLIA [id number] [place] [address] MCV (RBC) [Entitic vol] 86.8 fL Normal 80.0-100.0 [facility] Comment on above: Order Comment: Speci men Type: BLOOD SPECIMENOrdering Facility: [facility] Address: [address] [place] [address] Performed By: #### 5 7021-8 ####[facility] LABCLIA [id number] [place] [address] Monocytes (Bld) [#/Vol] 0.44 10*3/uL Normal <0.87 [facility] Comment on above: Order Comment: Speci men Type: BLOOD SPECIMENOrdering Facility: [facility] Address: [address] [place] [address] Performed By: #### 5 7021-8 ####[facility] LABCLIA [id number] [place] [address] Monocytes/100 WBC (Bld) 4.6 % Normal [facility] Comment on above: Order Comment: Speci men Type: BLOOD SPECIMENOrdering Facility: [facility] Address: [address] [place] [address] Performed By: #### 5 7021-8 ####[facility] LABCLIA [id number] [place] [address] Neutrophils (Bld) [#/Vol] 6.48 10*3/uL Normal 1.45-7.50 [facility] Comment on above: Order Comment: Speci men Type: BLOOD SPECIMENOrdering Facility: [facility] Address: [address] [place] [address] Performed By: #### 5 7021-8 ####[facility] LABCLIA [id number] [place] [address] Neutrophils/100 WBC (Bld) 68.1 % Normal [facility] Comment on above: Order Comment: Speci men Type: BLOOD SPECIMENOrdering Facility: [facility] Address: [address] [place] [address] Performed By: #### 5 7021-8 ####[facility] LABCLIA [id number] [place] [address] Nucleated RBC (Bld) [#/Vol] 10*3/uL Normal <0.01 [facility] Comment on above: Order Comment: Speci men Type: BLOOD SPECIMENOrdering Facility: [facility] Address: [address] [place] [address] Performed By: #### 5 7021-8 ####[facility] LABCLIA [id number] [place] [address] Nucleated RBC/100 WBC (Bld) [Ratio] 0.0 /100 WBC Normal [facility] Comment on above: Order Comment: Speci men Type: BLOOD SPECIMENOrdering Facility: [facility] Address: [address] [place] [address] Performed By: #### 5 7021-8 ####[facility] LABCLIA [id number] [place] [address] Platelet mean volume (Bld) [Entitic vol] 9.8 fL Normal 9.0-12.7 [facility] Comment on above: Order Comment: Speci men Type: BLOOD SPECIMENOrdering Facility: [facility] Address: [address] [place] [address] Performed By: #### 5 7021-8 ####[facility] LABIA [id number] [place] [address] Platelets (Bld) [#/Vol] 327 10*3/uL Normal 150-400 [facility] Comment on above: Order Comment: Speci men Type: BLOOD SPECIMENOrdering Facility: [facility] Address: [address] [id number] Performed By: #### 5 7021-8 ####[facility] LABIA [id number] [place] [address] RBC (Bld) [#/Vol] 4.25 10*6/uL Normal 3.90-5.20 [facility] Comment on above: Order Comment: Speci men Type: BLOOD SPECIMENOrdering Facility: [facility] Address: [address] [place] [address] Performed By: #### 5 7021-8 ####[facility] LABIA [id number] [place] [address] WBC (Bld) [#/Vol] 9.52 10*3/uL Normal 3.70-11.00 [facility] Comment on above: Order Comment: Speci men Type: BLOOD SPECIMENOrdering Facility: [facility] Address: [address] [place], [place] [id number] Performed By: #### 5 7021-8 ####[facility] LABIA [id number] [place] [address] CNOVSPon 10-28-2024 OVS Visit (SP) Office ([facility]) SANNA RENDON ([id number]) 1985 F Date Time Provider Department 10/28/24 2:30 PM KATHERINE NEGRETE During your visit today, we recorded the following information about you: Temperature Pulse Respiration Blood pressure 97 degrees 82/minute 16/minute 122/77 Weight Last Period 94.1 kg 10/28/24 Katherine Negrete APRN.BILINGUAL INTERPRETER 10/29/2024 9:44 PM Signed NAME: Sanna Rendon CLINIC NO.: [id number] DATE OF SERVICE: October 28, 2024 (Arsh) [...] later in 2018. These were found in [place], [place]. I don't have access to these [...] a target-like rash shortly before presenting to [facility] in 2015 with headaches and was [...] at home. Updated Visit, January 02, 2024: aSnna returns today for a follow up. She [...] and vi (more content not included)... Normal [facility] CNPNon 10-28-2024 CNPN Telephone (NCCAP) SANNA RENDON ([id number]) 1985 F Date Time Provider Department 10/28/24 KATHERINE NEGRETE During your visit today, we recorded the following information about you: Roberta Haskins 10/28/2024 2:52 PM Signed Valeri Yeung RN 10/30/2024 8:30 AM Signed Labs resulted. Please advise. MARSHA Barajas Mindy M, PA-C 11/04/2024 8:13 AM Signed Katherine saw this patient last and will be able to advise better of the plan of care. NELI Buck Holly, APRN.TOR 11/05/2024 12:33 PM Signed Spoke with Dr. [...] recommended. 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 She denies further questions, [...] Status:Closed by RACHAEL JOHNSON on 11/05/24 Normal [facility] Comprehensive metabolic 2000 panelon 10-28-2024 Albumin [Mass/Vol] 4.4 g/dL Normal 3.9-4.9 [facility] Comment on above: Order Comment: Speci men Type: BLOOD SPECIMENOrdering Facility: [facility] Address: [address] [place] [address] Performed By: #### 2 4323-8 ####[facility] LABCLIA [id number] [place] [address] ALP [Catalytic activity/Vol] 55 U/L Normal 34-123 [facility] Comment on above: Order Comment: Speci men Type: BLOOD SPECIMENOrdering Facility: [facility] Address: [address] [place] [address] Performed By: #### 2 4323-8 ####[facility] LABCLIA [id number] [place] [address] ALT [Catalytic activity/Vol] 18 U/L Normal 7-38 [facility] Comment on above: Order Comment: Speci men Type: BLOOD SPECIMENOrdering Facility: [facility] Address: [address] [place] [address] Performed By: #### 2 4323-8 ####[facility] LABCLIA [id number] [place] [address] Anion gap [Moles/Vol] 12 mmol/L Normal 8-15 [facility] Comment on above: Order Comment: Speci men Type: BLOOD SPECIMENOrdering Facility: [facility] Address: [address] [place] [address] Performed By: #### 2 4323-8 ####[facility] LABCLIA [id number] [place] [address] AST [Catalytic activity/Vol] 13 U/L Normal 13-35 [facility] Comment on above: Order Comment: Speci men Type: BLOOD SPECIMENOrdering Facility: [facility] Address: [address] [place] [address] Performed By: #### 2 4323-8 ####[facility] LABCLIA [id number] [place] [address] Bilirubin [Mass/Vol] 0.2 mg/dL Normal 0.2-1.3 [facility] Comment on above: Order Comment: Speci men Type: BLOOD SPECIMENOrdering Facility: [facility] Address: [address] [place] [address] Performed By: #### 2 4323-8 ####[facility] LABCLIA [id number] [place] [address] Calcium [Mass/Vol] 9.9 mg/dL Normal 8.5-10.2 [facility] Comment on above: Order Comment: Speci men Type: BLOOD SPECIMENOrdering Facility: [facility] Address: [address] [place] [address] Performed By: #### 2 4323-8 ####[facility] LABCLIA [id number] [place] [address] Chloride [Moles/Vol] 99 mmol/L Normal 98-107 [facility] Comment on above: Order Comment: Speci men Type: BLOOD SPECIMENOrdering Facility: [facility] Address: [address] [place] [address] Performed By: #### 2 4323-8 ####[facility] LABCLIA [id number] [place] [address] CO2 [Moles/Vol] 22 mmol/L Normal 22-30 [facility] Comment on above: Order Comment: Speci men Type: BLOOD SPECIMENOrdering Facility: [facility] Address: [address] [place] [address] Performed By: #### 2 4323-8 ####[facility] LABCLIA [id number] [place] [address] Creatinine [Mass/Vol] 0.60 mg/dL Normal 0.58-0.96 [facility] Comment on above: Order Comment: Cesar redd Type: BLOOD SPECIMENOrdering Facility: [facility] Address: [address] [id number] Performed By: #### 2 4323-8 ####[facility] LABCLIA [id number] [place] [address] Creatinine and Glomerular filtration rate.predicted panel (S/P/Bld) 117 mL/min/1.73m??? Normal >=60 [facility] Comment on above: Order Comment: Cesar redd Type: BLOOD SPECIMENOrdering Facility: [facility] Address: [address] [place] [address] Result Comment: Hawa mated Glomerular Filtration Rate [...] actual GFR. Performed By: #### 2 4323-8 ####[facility] LABCLIA [id number] [place] [address] Glucose [Mass/Vol] 101 mg/dL High 74-99 [facility] Comment on above: Order Comment: Cesar redd Type: BLOOD SPECIMENOrdering Facility: [facility] Address: [address] [place], [place] [address] Result Comment: The [place] Diabetes Association (ADA) provides guidance for cutoff [...] Standards of Medical Care in Diabetes 2016, [place] Diabetes Association. Diabetes Care. 2016.39(Suppl 1). Performed By: #### 2 4323-8 ####[facility] LABCLIA [id number] [place] [address] Potassium [Moles/Vol] 3.5 mmol/L Low 3.7-5.1 [facility] Comment on above: Order Comment: Speci men Type: BLOOD SPECIMENOrdering Facility: [facility] Address: [address] [place] [address] Performed By: #### 2 4323-8 ####[facility] LABCLIA [id number] [place] [address] Protein [Mass/Vol] 7.6 g/dL Normal 6.3-8.0 [facility] Comment on above: Order Comment: Speci men Type: BLOOD SPECIMENOrdering Facility: [facility] Address: [address] [place] [address] Performed By: #### 2 4323-8 ####[facility] LABCLIA [id number] [place] [address] Sodium [Moles/Vol] 133 mmol/L Low 136-144 [facility] Comment on above: Order Comment: Speci men Type: BLOOD SPECIMENOrdering Facility: [facility] Address: [address] [place] [address] Performed By: #### 2 4323-8 ####[facility] LABCLIA [id number] [place] [address] Urea nitrogen [Mass/Vol] 7 mg/dL Normal 7-21 [facility] Comment on above: Order Comment: Speci men Type: BLOOD SPECIMENOrdering Facility: [facility] Address: [address] [place] [address] Performed By: #### 2 4323-8 ####[facility] LABCLIA [id number] [place] [address] [facility] Ferritin [Mass/Vol] 99.6 ng/mL Normal 14.7-205.1 [facility] Comment on above: Order Comment: Speci men Type: BLOOD SPECIMENOrdering Facility: [facility] Address: [address] [place] [address] Performed By: #### 2 276-4, 2132-9, 17413-5, 3016-3 ####[facility] LABCLIA [id number] [place] [id number] [place] Iron and Iron binding capaci ty panel 10-28-2024 Iron [Mass/Vol] 72 ug/dL Normal 41-186 [facility] Comment on above: Order Comment: Speci men Type: BLOOD SPECIMENOrdering Facility: [facility] Address: [address] [place] [address] Performed By: #### 2 276-4, 2132-9, 07205-5, 3016-3 ####[facility] LABCLIA [id number] [place] [address] [place] Iron binding capacity [Mass/Vol] 399 ug/dL High 232-386 [facility] Comment on above: Order Comment: Speci men Type: BLOOD SPECIMENOrdering Facility: [facility] Address: [address] [place] [address] Performed By: #### 2 276-4, 2132-9, 01977-9, 3016-3 ####[facility] LABCLIA [id number] [place] [id number] [place] Iron/TIBC [Molar ratio] 18.0 % Normal 15.0-57.0 [facility] Comment on above: Order Comment: Speci men Type: BLOOD SPECIMENOrdering Facility: [facility] Address: [address] [place] [address] Performed By: #### 2 276-4, 2132-9, 55826-8, 3016-3 ####[facility] LABCLIA [id number] [place] [id number] [place] TSHon 10-28-2024 Thyroid Stimulating (3Rd Generation) Hormone/ Tsh 1.[address] [facility] TSH SerPl-aCncon 10-28-2024 TSH Qn 1.250 m[IU]/L Normal 0.270-4.20 0 [facility] Comment on above: Order Comment: Speci men Type: BLOOD SPECIMENOrdering Facility: [facility] Address: [address] [place] [address] Result Comment: If t he patient is , TSH reference range varies by gestational period: First Trimester (weeks 9-12): 0.180-2.990 mIU/L Second Trimester: 0.110-3.980 mIU/L Third Trimester: 0.480-4.710 mIU/L Danny Varela et al. A Practical Approach for the Verifications and Determination of Site- and Trimester-Specific Reference Intervals for Thyroid Function tests in . Thyroid, 2019:29:3:412-420. Saeed Pan, et al. 2017 Guidelines of the [place] Thyroid Association for the Diagnosis and Management of Thyroid Disease during and the . Thyroid, 2017:27:3:315-389. Performed By: #### 2 276-4, 2132-9, 97150-2, 3016-3 ####[facility] LABIA [id number] [place] [id number] [place] Vit B12 SerPl-mCncon 025 Cobalamin (Vitamin B12) [Mass/Vol] 483 pg/mL Normal 232-1245 [facility] Comment on above: Order Comment: Speci men Type: BLOOD SPECIMENOrdering Facility: [facility] Address: [address] [id number] Performed By: #### 2 276-4, 2132-9, 62374-7, 3016-3 ####[facility] LABIA [id number] [place] [id number] [place] CNPNon 10-24-2024 CNPN Telephone (OnApp) SANNA RENDON ([id number]) 1985 F Date Time Provider Department 10/24/24 [...] Date Reviewed: 08/26/2024 Reviewed by: Katherine Negrete APRN.BILINGUAL INTERPRETER - Fully Assessed Reason for Visit: Lab [...] Status:Closed by KAUR DUNHAM on 10/24/24 Normal [facility] US OB TRANSVAGINALon 10-20- 025 US OB TRANSVAGINAL EXAM: US OB [...] II, MD, PHD at 21-Oct-2024 08:31:21 AM [facility] Normal Not Available Comment on above: Order Comment: US OB VIABILITY PLEASE PERFORM TRANSVAGINAL ULTRASOUND IF INDICATED No LMP recorded. ALL CBC WITH AUTO DIFFon BASOPHILS ABSOLUTE AUTO 0 [facility] Basophils/100 WBC (Bld) 0.2 % 0.2 - 2.0 % [facility] Eosinophils/100 WBC (Bld) 0.4 % Low 0.9 - 7.0 % [facility] Erythrocyte distribution width (RBC) [Ratio] 14 % 11.0 - 15.0 % [facility] Hematocrit (Bld) [Volume fraction] 38.1 % 36.0 - 48.0 % [facility] Hemoglobin (Bld) [Mass/Vol] 13.2 g/dL 12.0 - 16.0 g/dL [facility] IMMATURE GRANULOCYTES ABS AUTO 0.03 [facility] Immature granulocytes/100 WBC (Bld) 0.3 % 0.0 - 0.5 % [facility] Interpretation and review of laboratory results Abnormal [facility] LYMPHOCYTES ABSOLUTE AUTO 2.6 [facility] Lymphocytes/100 WBC (Bld) 29.1 % 20.5 - 60.0 % [facility] MCH (RBC) [Entitic mass] 29.9 pg 26.7 - 34.[address] [facility] MCHC (RBC) [Mass/Vol] 34.6 g/dL 29.9 - 35.2 g/dL [facility] MCV (RBC) [Entitic vol] 86.2 fL 81.0 - 99.[address] [facility] MONOCYTES ABSOLUTE AUTO 0.6 [facility] Monocytes/100 WBC (Bld) 7.2 % 1.7 - 12.0 % [facility] NEUTROPHILS ABSOLUTE AUTO 5.6 [facility] Neutrophils/100 WBC (Bld) 62.8 % 43.0 - 75.0 % [facility] Platelet mean volume (Bld) [Entitic vol] 10.1 fL 9.5 - 13.[address] [facility] TBH EO # 0 [facility] TBH PLT 309 [facility] RBC 4.42 [facility] TB WBC 8.9 [facility] CLINISYNC Drug Screen, Urineon 025 Amphetamine/Methamphe tamine Negative [facility] Barbiturates Negative [facility] Benzodiazepines Negative [facility] Cocaine Metabolite Negative [facility] Ecstasy Negative [facility] Methadone Negative [facility] Opiates Negative [facility] Oxycodone Negative [facility] Phencyclidine Negative [facility] Thc Marijuana, Urine Negative [facility] HBV surface Ag IA Qlon 10-06 Hepatitis B Surface Antigen Negative [facility] HIV 1+2 Ab+HIV1 p24 Ag IA Ql on 10-06-2024 HIV 1&2 AB/AG Negative [facility] Hemoglobin A1con 10-06-2024 HbA1c (Bld) [Mass fraction] 5.9 % 4.0 - 6.0 % [facility] No Panel Informationon 10-06 [facility] TSHon 10-06-2024 Thyroid Stimulating (3Rd Generation) Hormone/ Tsh 1.131 [facility] Type and screenon 10-06-2024 Abo/Rh(D) Negative [facility] HCG ( test) Ql (U)o n 10-02-2024 Interpretation and review of laboratory results Abnormal [facility] Preg Test, Ur Positive Negative [facility] Urinalysis macro (dipstick) panel (U)on 10-02-2024 Bilirubin, UA Negative Negative - 4(70) +++ mg/dL [facility] Blood, UA Negative Negative - 50 Max/mcL [facility] Clarity, UA Clear [facility] Color, UA Yellow [facility] Glucose, UA Negative Negative - 1999(110) ++++ mg/dL [facility] Interpretation and review of laboratory results Normal [facility] Ketones, UA Negative Negative - 160(16) ++++ mg/dL [facility] Leukocytes, UA Negative Negative - 500+++ John/mcL [facility] Nitrite, UA Negative Negative - Positive [facility] pH, UA 6 5 - 9 [facility] Protein, UA Negative Negative - 2000(20) ++++ mg/dL [facility] Spec Grav, UA 1.025 1 - 1.03 [facility] Urobilinogen, UA 0.2 0.2 - 12 mg/dL [facility] US OB TRANSVAGINALon [address] [address] Ultrasound Report Signed Patient: SANNA RENDON MR#: [id number] : 1985 Acct:[id number] Age/Sex: 38 / F ADM Date: 09/11/24 Loc: US Attending Dr: Wilton Herrmann D.O. Ordering Physician: Wilton Herrmann D.O. Date of Service: 09/11/24 Procedure(s): US OB transvaginal Accession Number(s): [id number] cc: Wilton Herrmann D.O.; PENELOPE CASAS [place] [id number] Patient Name: SANNA RENDON MRN: [facility]:[id number] date: 1985 Sex: F Assigned Patient Location: US Current Patient Location: US Accession/Order Number: [id number] Exam Date: 09/11/2024 11:34 Report Date: 09/11/2024 [...] and normal heart rate. Impression dictated by: Prudence Montano M.D. 09/11/2024 11:36 AM Dictation Location: [place] [address] Electronically authenticated by: [id number] Y Date: 09/11/2024 11:36 Dictated By: Prudence Montano M.D. Signed By: 09/11/24 1138 DD/ 1136 TD/TT: [employer]: [facility] Radiology, Radiologi MD julio cesar - 09/11/2024 [place] [address] Ultrasound Report Signed Patient: SANNA RENDON MR#: [id number] : 1985 Acct:[id number] Age/Sex: 38 / F ADM Date: 09/11/24 Loc: US Attending Dr: Wilton Herrmann D.O. Ordering Physician: Wilton Herrmann D.O. Date of Service: 09/11/24 Procedure(s): US OB transvaginal Accession Number(s): [id number] cc: Wilton Herrmann D.O.; PENELOPE CASAS [place] [address] Patient Name: SANNA RENDON MRN: [id number] date: 1985 Sex: F Assigned Patient Location: US Current Patient Location: US Accession/Order Number: [id number] Exam Date: 09/11/2024 11:34 Report Date: 09/11/2024 [...] and normal heart rate. Impression dictated by: Prudence Montano M.D. 09/11/2024 11:36 AM Dictation Location: [employer] Electronically authenticated by: [id number] Y Date: 09/11/2024 11:36 Dictated By: Prudence Montano M.D. Signed By: 05/8 DD/ 35 TD/TT: [employer]: [facility] Radiology Study observation (narrative) [facility] US OB TRANSVAGINALOrdered By : Radiologist Radiology on 09-11-2024 [facility] Work Phone: [facility] Quanton 09-09-2024 [place] [address] m[IU]/mL High 1-3 [facility] Comment on above: Result Comment: 'F N ON < 1 - 3' ' 0.2 - 1 WEEK = 5 TO 50' ' 1 - 2 WEEKS = 50 - 500' ' 2 - 3 WEEKS = 100 - 5000' ' 3 - 4 WEEKS = 500 - 53475' ' 4 - 5 WEEKS = 1000 - 34438' ' 5 - 6 WEEKS = 71426 - 544924' ' 6 - 8 WEEKS = 93028 - 336833' ' 8 - 12 WEEKS = 74625 - 349400' Performed By: #### 2 [id number] #### [facility] [address] [place] [address] Ambulatory Visit Summaryon 0 09-07-2024 Ambulatory Visit Summary Ambulatory Visit Summary SANNA RENDON :1985 Visit Date:09/07/2024 Ambulatory Visit Instructions Your Diagnosis Viral URI with cough Cough Your Care Team Attending Physician - Romulo Chiu PA-C Primary Care Physician - Penelope CASAS DO, FAAFP This Is Your Medications List Contact prescribing physician if questions or concerns enoxaparin (Lovenox 40 mg/0.4 mL Injection) ergocalciferol (Vitamin D) fluticasone nasal (Flonase 0.05 mg/inh [place]) levothyroxine (levothyroxine 25 mcg (0.025 mg) Tab) [...] EDT With: Penelope CASAS DO, FAAFP Where: [facility] [address], [place] [address]- Medications What How Much When Instructions Unchanged enoxaparin (Lovenox 40 mg/ 0.4 mL Injection) 40 Milligram Subcutaneous Every 24 hours Contact prescribing physician if questions or concerns Unchanged ergocalciferol (Vitamin D) 2,000 International unit By Mouth Every week Contact prescribing physician if questions or concerns Unchanged fluticasone nasal (Flonase 0.05 mg/ inh [place]) 2 Sprays Nasal Inhalation Every day each [...] choosing us for your care. Normal [facility] Family Medicine Office/Clini c Noteon 09-07-2024 [...] with voice recognition software. Occasional wrong-word or ???gihyg-g-ioeh??? substitutions may have occurred due to the [...] days ago on Sunday. Has been using bzru-aew-qqlcbov cough drops and Flonase for her allergies. [...] antibiotics un (more content not included)... Normal [facility] Comment on above: Result Comment: Elec tronically Signed By: Aram QUINTEROS, Romulo Lynn\.br\Date and Time Signed: 09/07/24 10:46 EDT Sisi 09-02-2024 BEA Telephone (HEMASA) SANNA RENDON ([id number]) 1985 F Date Time Provider Department 09/02/24 [...] Date Reviewed: 08/26/2024 Reviewed by: Katherine Negrete APRN.BILINGUAL INTERPRETER - Fully Assessed Reason for Visit: Patient [...] Encounter Status:Closed by RACHAEL JOHNSON on 09/03/24 [facility] [place] 08-30-2024 HCG.beta subunit Qn 558 m[IU]/mL High 1-3 [facility] Comment on above: Result Comment: 'F N ON < 1 - 3' ' 0.2 - 1 WEEK = 5 TO 50' ' 1 - 2 WEEKS = 50 - 500' ' 2 - 3 WEEKS = 100 - 5000' ' 3 - 4 WEEKS = 500 - 46156' ' 4 - 5 WEEKS = 1000 - 96647' ' 5 - 6 WEEKS = 33039 - 035034' ' 6 - 8 WEEKS = 63553 - 989844' ' 8 - 12 WEEKS = 59549 - 149615' Performed By: #### 2 [id number] #### [facility] [address] [place] [address] [facility] [place] 08-27-2024 HCG.beta subunit Qn 188 m[IU]/mL High 1-3 [facility] Comment on above: Result Comment: 'F N ON < 1 - 3' ' 0.2 - 1 WEEK = 5 TO 50' ' 1 - 2 WEEKS = 50 - 500' ' 2 - 3 WEEKS = 100 - 5000' ' 3 - 4 WEEKS = 500 - 24044' ' 4 - 5 WEEKS = 1000 - 56188' ' 5 - 6 WEEKS = 14909 - 443266' ' 6 - 8 WEEKS = 02305 - 544671' ' 8 - 12 WEEKS = 67135 - 040337' Performed By: #### 2 069797 #### 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] Malaise and fatigue [R53.81, R53.83] Vitamin D deficiency [E55.9] Order(s):COMPLETE BLOOD COUNT AND DIFFERENTIAL [SQCBCDIF] Order #: [id number] FUTURE COMPREHENSIVE METABOLIC PANEL [SQCMP] Order #: [id number] FUTURE THYROID STIMULATING HORMONE [SQTSH] Order #: [id number] FUTURE IRON AND TIBC [SQIRON] Order #: [id number] FUTURE FERRITIN [SQFERR] Order #: [id number] FUTURE VITAMIN D 25 HYDROXY [SQVITD] Order #: [id number] FUTURE VITAMIN B12 [SQB12] Order #: [id number] FUTURE Prescriptions as of 08/26/2024 - enoxaparin [...] Status:Closed by KATHERINE NEGRETE on 08/26/24 Normal [facility] [place] 08-25-2024 HCG.beta subunit Qn 83 m[IU]/mL High 1-3 [facility] Comment on above: Result Comment: 'F N ON < 1 - 3' ' 0.2 - 1 WEEK = 5 TO 50' ' 1 - 2 WEEKS = 50 - 500' ' 2 - 3 WEEKS = 100 - 5000' ' 3 - 4 WEEKS = 500 - 60309' ' 4 - 5 WEEKS = 1000 - 40607' ' 5 - 6 WEEKS = 19437 - 479908' ' 6 - 8 WEEKS = 65539 - 953964' ' 8 - 12 WEEKS = 91895 - 521880' Performed By: #### 2 [id number] #### [facility] [address] [place] [address] [facility] [place] 08-23-2024 HCG.beta subunit Qn 22 m[IU]/mL High 1-3 [facility] Comment on above: Result Comment: 'F N ON < 1 - 3' ' 0.2 - 1 WEEK = 5 TO 50' ' 1 - 2 WEEKS = 50 - 500' ' 2 - 3 WEEKS = 100 - 5000' ' 3 - 4 WEEKS = 500 - 80379' ' 4 - 5 WEEKS = 1000 - 23821' ' 5 - 6 WEEKS = 57811 - 762623' ' 6 - 8 WEEKS = 04959 - 314711' ' 8 - 12 WEEKS = 72724 - 628071' Performed By: #### 2 107429 #### [facility] [address] [place] [address] CHEMISTRYOrdered By: SYSTEM SYSTEM on 08-23-2024 HCG.beta [...] 3 - 4 WEEKS = 500 - 47721' ' 4 - 5 WEEKS = 1000 - 07424' ' 5 - 6 WEEKS = 11402 - 042382' ' 6 - 8 WEEKS = 21601 - 217553' ' 8 - 12 WEEKS = 67101 - 122421' TSH Qn 1.86 m[IU]/L Normal 0.34 - 5.60 mcIU/mL Remisol Chem TSHon 08-23-2024 TSH Qn 1.86 m[IU]/L Normal 0.34-5.60 [facility] Comment on above: Performed By: #### 2 [id number] #### [facility] [address] [place] [address] HCG ( test) Ql (U)o n 07-24-2024 Interpretation and review of laboratory results Normal [facility] Preg Test, Ur Negative Negative [facility] .Interpretation:on HCV Ab IA Ql Comment Invalid Interpretation Code [facility] Comment on above: Result Comment: Not infected with HCV unless early or acute infection is suspected (which may be delayed in an immunocompromised individual), or other evidence exists to indicate HCV infection. Performed at: [address] [id number] PhD Jd Montano Performed By: #### 2 [id number] #### [facility] [address] [place] [address] HCV Antibody RFX to Quant PC Doug 07-10-2024 HCV Ab IA Ql Non-Reactive Invalid Interpretation Code Non Reactive [facility] Comment on above: Result Comment: Perf ormed at: [address] [id number] PhD Jd Montano Performed By: #### 2 [id number] #### [facility] [address] [place] [address] HIV Screen 4th Generation wR fxon 07-10-2024 HIV 1+2 Ab+HIV1 p24 Ag IA Ql Non-Reactive Invalid Interpretation Code Non Reactive [facility] Comment on above: Result Comment: HIV- 1/HIV-2 antibodies and HIV-1 p24 antigen were NOT detected. There is no laboratory evidence of HIV infection. HIV Negative Performed at: [address] [id number] PhD Jd Montano Performed By: #### 9 [id number] #### [facility] [address] [place] [address] Hep Be Agon 07-10-2024 HBV e Ag IA Ql Negative Invalid Interpretation Code Negative [facility] Comment on above: Result Comment: Perf ormed at: [address] [id number] PhD Jd Montano Performed By: #### 2 [id number] #### [facility] [address] [place] [address] Hep Bs Agon 07-10-2024 HBV surface Ag IA Ql Negative Invalid Interpretation Code Negative [facility] Comment on above: Result Comment: Perf ormed at: [facility] [address] [id number] PhD Jd Montano Performed By: #### 2 [id number] #### [facility] [address] [place] [address] CHEMISTRYOrdered By: SYSTEM SYSTEM on 07-09-2024 Albumin [...] 07-09-2024 Albumin [Mass/Vol] 5.0 g/dL Normal 3.3-5.0 [facility] Comment on above: Performed By: #### 2 [id number] #### [facility] [address] [place] [address] Albumin/Globulin (S) [Mass conc ratio] 1.6 Normal 1.1-2.2 [facility] Comment on above: Performed By: #### 2 [id number] #### [facility] [address] [place] [address] ALP [Catalytic activity/Vol] 49 Int._Unit/L Normal 21-98 [facility] Comment on above: Performed By: #### 2 470239 #### [facility] [address] [place] [address] ALT No additional P-5'-P [Catalytic activity/Vol] 18 Int._Unit/L Normal 6-46 [facility] Comment on above: Performed By: #### 2 753609 #### [facility] [address] [place] [address] Anion gap [Moles/Vol] 13 mmol/L Normal 6-16 [facility] Comment on above: Performed By: #### 2 [id number] #### [facility] [address] [place] [address] AST [Catalytic activity/Vol] 15 Int._Unit/L Normal 5-43 [facility] Comment on above: Performed By: #### 2 [id number] #### [facility] [address] [place] [address] Bilirubin [Mass/Vol] 0.4 mg/dL Normal 0.0-1.1 [facility] Comment on above: Performed By: #### 2 642300 #### [facility] [address] [place] [address] Calcium [Mass/Vol] 10.0 mg/dL Normal 8.9-11.1 [facility] Comment on above: Performed By: #### 2 252856 #### [facility] [address] [place] [address] Chloride [Moles/Vol] 100 mmol/L Low 101-111 [facility] Comment on above: Performed By: #### 2 576515 #### [facility] [address] [place] [address] CO2 [Moles/Vol] 25 mmol/L Normal 21-31 [facility] Comment on above: Performed By: #### 2 177715 #### [facility] [address] [place] [address] Creatinine [Mass/Vol] 0.7 mg/dL Normal 0.5-1.3 [facility] Comment on above: Performed By: #### 2 197098 #### [facility] [address] [place] [address] Globulin (S) [Mass/Vol] 3.1 g/dL Normal 1.4-4.0 [facility] Comment on above: Performed By: #### 2 690735 #### [facility] [address] [place] [address] Glucose [Mass/Vol] 82 mg/dL Normal 55-199 [facility] Comment on above: Performed By: #### 2 163136 #### [facility] [address] [place] [address] Potassium [Moles/Vol] 3.8 mmol/L Normal 3.5-5.3 [facility] Comment on above: Performed By: #### 2 837345 #### [facility] [address] [place] [address] Protein [Mass/Vol] 8.1 g/dL High 6.0-7.8 [facility] Comment on above: Performed By: #### 2 756105 #### [facility] [address] [place] [address] Sodium [Moles/Vol] 134 mmol/L Low 135-145 [facility] Comment on above: Performed By: #### 2 217109 #### [facility] [address] [place] [address] Urea nitrogen [Mass/Vol] 7 mg/dL Normal 5-21 [facility] Comment on above: Performed By: #### 2 036029 #### [facility] [address] [place] [address] Urea nitrogen/Creatinine [Mass ratio] 10 No Units Normal 10-20 [facility] Comment on above: Performed By: #### 2 481821 #### [facility] [address] [place] [address] eGFRon 07-09-2024 eGFR 113 mL/min/1.73 m2 Normal >=59 [facility] Comment on above: Performed By: #### 1 [id number] #### [facility] [address] [place] [address] Family Medicine Office/Clini c Noteon 07-08-2024 Family [...] Penelope CASAS DO, FAAFP, FAM, PED [address] [facility], [place] [address]- Additional Instructions: Patient Education Bradycardia, Adult Problem [...] Abdominal pain (more content not included)... Normal [facility] Comment on above: Result Comment: Elec tronically Signed By: Inez Banegas\.br\Date and Time Signed: 07/08/24 08:54 EDT Ambulatory Visit Summaryon 0 07-07-2024 Ambulatory Visit Summary Ambulatory Visit Summary SANNA RENDON :1985 Visit Date:07/07/2024 Ambulatory Visit Instructions Your Care Team Attending Physician - Inez Banegas Primary Care Physician - Penelope CASAS DO, FAAFP This Is Your Medications List Contact prescribing physician if questions or concerns enoxaparin (Lovenox 40 mg/0.4 mL Injection) ergocalciferol (Vitamin D) famotidine (Pepcid 40 mg Tab) fluconazole (Diflucan 150 mg Tab) fluticasone nasal (Flonase 0.05 mg/inh [place]) levothyroxine (levothyroxine 25 mcg (0.025 mg) Tab) [...] EDT With: Penelope CASAS DO, FAAFP Where: [facility] [address] [place] [address]- You Need to Schedule the Following Appointments Follow Up with Penelope CASAS DO, FAAFP, CHRIS, PED When: Where: [address] [place] [address]- Medications What How Much When Why Instructions [...] Unchanged fluticasone nasal (Flonase 0.05 mg/ inh [place]) 2 Sprays Nasal Inhalation Every day each [...] for choosing us for your care. Normal [facility] Quanton 07-07-2024 HCG.beta subunit Qn 1 m[IU]/mL Normal 1-3 [facility] Comment on above: Result Comment: 'F N ON < 1 - 3' ' 0.2 - 1 WEEK = 5 TO 50' ' 1 - 2 WEEKS = 50 - 500' ' 2 - 3 WEEKS = 100 - 5000' ' 3 - 4 WEEKS = 500 - 83701' ' 4 - 5 WEEKS = 1000 - 88538' ' 5 - 6 WEEKS = 11295 - 154705' ' 6 - 8 WEEKS = 34158 - 922755' ' 8 - 12 WEEKS = 37011 - 909649' Performed By: #### 2 246770 #### [facility] [address] [place] [address] MTHFR 2 Mutationson 07-08-19 25 MTHFR Interpretation See Note Normal [facility] Comment on above: Result Comment: Indication for testing: Determine genetic contribution to hyperhomocysteinemia. 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 The [employer] Practice Guidelines indicate [...] a contributing factor to hyperhomocysteinemia. Variants Tested: c.665C>T(p.Kfb362Cmb) and c.1286A>C(p.Wjt407Tzt). (legacy names C677T and K9151O, respectively). Clinical Sensitivity: Undefined; hyperhomocysteinemia is caused [...] developed and its performance characteristics determined by [facility]. It has not been cleared or approved by the US Food and Drug Administration. This test was performed in a CLIA certified laboratory and is intended for clinical purposes. Counseling and informed consent are recommended for genetic testing. Consent forms are available online. 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 MTHFR Mutation: C677T Negative Normal [facility] MTHFR PCR Specimen Whole Blood Normal [facility] Anti-nuclear Ab (NASEEM) Reflex on 07-04-2024 Anti-Nuclear Ab (NASEEM), IgG by ALEX Not detected Normal None Detec [facility] Comment on above: Result Comment: If s uspicion of connective tissue disease is strong and NASEEM EIA is negative, consider testing for NASEEM by IFA ([id number]). No antibodies to Anti-Nuclear Antibodies (NASEEM) detected. The Extractable Nuclear Antigen Antibodies (IT SUPPORT ENGINEER, Christianson, SSA 52, SSA 60, Scleroderma, Brianna-1 [...] dsDNA, histones, SS-A (Ro), SS-B (La), Christianson, Christianson/IT SUPPORT ENGINEER, Scl-70, Brianna-1, centromeric proteins, other antigens extracted from the HEp-2 cell nucleus. NASEEM ALEX assays have been reported to have lower sensitivities than NASEEM IFA for systemic autoimmune rheumatic diseases (SARD). Negative results do not necessarily rule out SARD. Performed By: [facility] [address] [place] [address] Development Consultant: Yayo Moncada MD, PhD CLIA Number: [id number] Brianna-1 (Histidyl-tRNA Syntheta se) Ab, IgGon 07-04-2024 Brianna-1 (Histidyl-tRNA Synthetase) Ab, IgG 0 AU/mL Normal 0-[address] [facility] Comment on above: Result Comment: INTE RPRETIVE INFORMATION: Brianna-1 Antibody, IgG 29 AU/mL or less.........Negative 30-40 AU/mL..............Equivocal 41 AU/mL or greater......Positive Presence of Brianna-1 (antihistidyl transfer RNA [t-RNA] synthetase) antibody is associated with polymyositis and may also be seen in patients with dermatomyositis. Brianna-1 antibody is associated with pulmonary involvement (interstitial lung disease), Raynaud phenomenon, arthritis, and missile mechanic's hands (implicated in antisynthetase syndrome). Performed By: [facility] [address] [place] [address] Development Consultant: Yayo Moncada MD, PhD CLIA Number: [id number] SSA and SSB Abs, IgGon 07-04 SSA 52 (Ro) (KELLEN) Ab, IgG 1 AU/mL Normal 0-[address] [facility] Comment on above: Result Comment: [...] (KELLEN) Ab, IgG 0 AU/mL Normal 0-[address] [facility] Comment on above: Result Comment: [...] (PSS) also have this antibody. Performed By: [facility] [address] [place] [address] Development Consultant: Yayo Moncada MD, PhD CLIA Number: [id number] Cardiolipin Antibodies, IgG/ IgMon 07-03-2024 Cardiolipin Ab IgG 95 GPL Critically high <=14 [facility] Comment on above: Result Comment: [...] other criteria phospholipid antibody tests. Performed by [facility], [address] [place] [address] [email or web address], Zhang Bledsoe MD, Lab. Director CLIA Number: [id number] Cardiolipin Ab IgM <10 Normal <=[address] [facility] Comment on above: Result Comment: [...] other criteria phospholipid antibody tests. Performed by [facility], [address] [place] [address] [email or web address], Zhang Bledsoe MD, Lab. Director CLIA Number: [id number] F-Actin (Smooth Muscle) Anti body, IgAon 07-03-2024 F-Actin Ab, IgA 1.8 Units Normal 0.0-24.[address] [facility] Comment on above: Result Comment: [...] should be confirmed with biopsy. Performed By: [facility] [address] [place] [address] Development Consultant: Yayo Moncada MD, PhD CLIA Number: [id number] dsDNA Ab, IgG by ELISAon dsDNA Ab, IgG by ALEX 4 IU Normal 0-[address] [facility] Comment on above: Result Comment: INTE RPRETIVE INFORMATION: Double-Stranded DNA (dsDNA) Ab IgG ALEX 24 IU or less........Negative 25-30 IU.............Borderline Positive 30-60 IU.............Low Positive 60-200 IU............Positive 201 IU or greater....Strong Positive Positivity for anti-double stranded DNA (anti-dsDNA) IgG antibody is a diagnostic criterion of systemic lupus erythematosus (SLE). Specimens are initially screened by enzyme-linked immunosorbent assay (ALEX). If ordered as reflex ([id number]), positive ALEX results (>24 IU) will be [...] recommendations for testing may be found at [email or web address]. Performed by [facility], [address] [place] [address] [email or web address], Zhang Bledsoe MD, Lab. Director [facility] Number: [id number] C-Reactive Proteinon 025 CRP [Mass/Vol] mg/L Normal 0.0-5.[address] [facility] Comment on above: Performed By: #### C RP #### [facility] [address] [place] [address] Sedimentation Rateon 025 Sedimentation Rate 18 mm Normal 0-[address] [facility] Comment on above: Result Comment: ESR Units mm/Hr Performed By: #### E SR #### [facility] [address] [place] [address] Family Medicine Office/Clini c Noteon 06-30-2024 Family [...] bedtime), # 90 tab(s), Refills(s) 4, Pharmacy: [facility] 1986, 168, cm, 06/30/24 8:36:00 EST, Height/Length Dosing, 97.2, kg, 06/30/24 8:36:00 EST, Weight Dosing Total time spent preparing the chart, conducting of the encounter with the patient and family and time spent documenting, reviewing, and ordering tests was 25 minutes. Follow-up With When Contact Information Penelope CASSA DO, FAAFP, FAM, PED In 2 months [address], [place] [address]- ([phone] (more content not included)... Normal [facility] Comment on above: Result Comment: Elec tronically Signed By: Penelope CASAS DO, FAAFP\.br\Date and Time Signed: 06/30/24 09:24 EST RECURRENT VAGINITIS (HTRX)on 06-25-2024 ATOPOBIUM VAGINAE 0 [facility] ATOPOBIUM VAGINAE Not detected [facility] BVAB 2,3 (BACTERIAL VAGINOSIS ASSOCIATED BACTERIA 2, 3); MOBILUNCUS SPP 0 [facility] BVAB 2,3 (BACTERIAL VAGINOSIS ASSOCIATED BACTERIA 2, 3); MOBILUNCUS SPP Not detected [facility] ALIA ALBICANS, PARAPSILOSIS, TROPICALIS 0 [facility] ALIA ALBICANS, PARAPSILOSIS, TROPICALIS Not detected [facility] ALIA GLABRATA 0 [facility] ALIA GLABRATA Not detected [facility] ALIA KRUSEI 0 [facility] ALIA KRUSEI Not detected [facility] CHLAMYDIA TRACHOMATIS 0 [facility] [...] UA Negative Negative - 4(70) +++ mg/dL [facility] Blood, UA Negative Negative - 50 Max/mcL [facility] Clarity, UA Clear [facility] Color, UA Yellow [facility] Glucose, UA Negative Negative - 1999(110) ++++ mg/dL [facility] Interpretation and review of laboratory results Normal [facility] Ketones, UA Negative Negative - 160(16) ++++ mg/dL [facility] Leukocytes, UA Negative Negative - 500+++ John/mcL [facility] Nitrite, UA Negative Negative - Positive [facility] pH, UA 7 5 - 9 [facility] Protein, UA Negative Negative - 1999(20) ++++ mg/dL [facility] Spec Grav, UA 1.01 1 - 1.03 [facility] Urobilinogen, UA 0.2 0.2 - 12 mg/dL [facility] Ambulatory Visit Summaryon 0 06-19-2024 Ambulatory Visit Summary Ambulatory Visit Summary SANNA RENDON :1985 Visit Date:06/19/2024 Ambulatory Visit Instructions Your Diagnosis Sinusitis, Sinusitis Yeast infection Your Care Team Attending Physician - MANDI BRYANT Primary Care Physician - Penelope CASAS DO, FAAFP This Is Your Medications List azithromycin (Zithromax 250 mg Tab) fluconazole (Diflucan 150 mg Tab) Contact prescribing physician if questions or concerns enoxaparin (Lovenox 40 mg/0.4 mL Injection) ergocalciferol (Vitamin D) fluticasone nasal (Flonase 0.05 mg/inh [place]) levothyroxine (levothyroxine 25 mcg (0.025 mg) Tab) [...] EDT With: Penelope CASAS DO, FAAFP Where: [facility] [address] [place] [address], [place] [address]- Medications What How Much When Why Instructions New azithromycin (Zithromax 250 mg Tab) 1 Packets By Mouth As Directed Sinusitis Duration: 5 Days Refills: 1 as directed on package labeling Pickup at [facility] 1985 New fluconazole (Diflucan 150 mg Tab) 1 Tablets By Mouth Every 7 days Yeast infection Refills: 1 Pickup at [facility] 1985 Unchanged enoxaparin (Lovenox 40 mg/ 0.4 mL Injection) 40 Milligram Subcutaneous Every 24 hours Contact prescribing physician if questions or concerns Unchanged ergocalciferol (Vitamin D) 2,000 International unit By Mouth Every week Contact prescribing physician if questions or concerns Unchanged fluticasone nasal (Flonase 0.05 mg/ inh [place]) 2 Sprays Nasal Inhalation Every day each [...] physician if questions or concerns Pharmacy Information [facility] 1985: [address] [facility] [place], [place] [id number] [phone] Allergies Milk Products (Illness) ciprofloxacin (Numbness and [...] choosing us for your care. Normal [facility] Family Medicine Office/Clini c Noteon 06-19-2024 [...] day(s), # 6 tab(s), Refills(s) 1, Pharmacy: [facility] 1985, 168, cm, 06/09/24 14:03:00 EST, Height/Length Dosing, 98.4, kg, 06/19/24 16:19:00 EST, Weight Dosing Yeast infection (B37.9: Candidiasis, unspecified) Ordered: fluconazole, 150 mg = 1 tab(s), Oral, q7day, # 4 tab(s), Refills(s) 1, Pharmacy: [facility] 1985, 168, cm, 06/09/24 14:03:00 EST, [...] Oral, q7day, 1 refills Flonase 0.05 mg/inh [place], 2 spray(s), Nasal, Daily, 11 refills levothyroxine [...] Refuses influe (more content not included)... Normal [facility] Comment on above: Result Comment: Elec tronically Signed By: MANDI BRYANT\.br\Date and Time Signed: 06/19/24 16:37 EST CBC w/ Auto Diffon 5 Basophils/100 WBC (Bld) 0.3 % Normal 0.0-2.0 [facility] Comment on above: Performed By: #### 2 [id number] #### [facility] [address] [place] [address] Basophils/Leukocytes Auto (Bld) [Pure # fraction] 0.0 E9/L Normal 0.0-0.2 [facility] Comment on above: Performed By: #### 2 872700 #### [facility] [address] [place] [address] Eosinophils (Bld) [#/Vol] 0.0 E9/L Normal 0.0-0.5 [facility] Comment on above: Performed By: #### 2 935381 #### [facility] [address] [place] [address] Eosinophils/100 WBC (Bld) 0.3 % Normal 0.0-8.0 [facility] Comment on above: Performed By: #### 2 049720 #### [facility] [address] [place] [address] Erythrocyte distribution width (RBC) [Ratio] 14.0 % Normal 10.9-14.2 [facility] Comment on above: Performed By: #### 2 475278 #### [facility] [address] [place] [address] Hematocrit (Bld) [Volume fraction] 40.9 % Normal 34.0-46.0 [facility] Comment on above: Performed By: #### 2 064411 #### [facility] [address] [place] [address] Hemoglobin (Bld) [Mass/Vol] 13.9 g/dL Normal 12.0-16.0 [facility] Comment on above: Performed By: #### 2 048144 #### [facility] [address] [place] [address] Lymphocytes (Bld) [#/Vol] 2.8 E9/L Normal 1.0-4.0 [facility] Comment on above: Performed By: #### 2 978648 #### [facility] [address] [place] [address] Lymphocytes/100 WBC (Bld) 24.6 % Normal 14.0-50.0 [facility] Comment on above: Performed By: #### 2 317428 #### [facility] [address] [place] [address] MCH (RBC) [Entitic mass] 30.7 pg Normal 27.0-34.0 [facility] Comment on above: Performed By: #### 2 488006 #### [facility] [address] [place] [address] MCHC (RBC) [Mass/Vol] 33.9 g/dL Normal 31.4-36.0 [facility] Comment on above: Performed By: #### 2 541632 #### [facility] [address] [place] [address] MCV (RBC) [Entitic vol] 90.6 fL Normal 80.0-100.0 [facility] Comment on above: Performed By: #### 2 503351 #### [facility] [address] [place] [address] Monocytes (Bld) [#/Vol] 0.6 E9/L Normal 0.2-1.0 [facility] Comment on above: Performed By: #### 2 586394 #### [facility] [address] [place] [address] Neutrophils (Bld) [#/Vol] 8.0 E9/L High 2.0-7.5 [facility] Comment on above: Performed By: #### 2 341943 #### [facility] [address] [place] [address] Neutrophils/100 WBC (Bld) 69.6 % Normal 36.0-75.0 [facility] Comment on above: Performed By: #### 2 253131 #### [facility] [address] [place] [address] Platelet 388.0 E9/L Normal 150.0-500. 0 [facility] Comment on above: Performed By: #### 2 309065 #### [facility] [address] [place] [address] Platelet mean volume (Bld) [Entitic vol] 8.2 fL Normal 6.4-10.8 [facility] Comment on above: Performed By: #### 2 062655 #### [facility] [address] [place] [address] RBC (Bld) [#/Vol] 4.5 E12/L Normal 4.3-5.9 [facility] Comment on above: Performed By: #### 2 390768 #### [facility] [address] [place] [address] WBC corrected for nucl RBC Auto (Bld) [#/Vol] 11.5 E9/L High 4.0-11.0 [facility] Comment on above: Performed By: #### 2 989847 #### [facility] [address] [place] [address] HEMATOLOGYOrdered By: SYSTEM SYSTEM on 06-12-2024 Basophils/100 [...] Medications List fluticasone nasal (Flonase 0.05 mg/inh [place]) Contact prescribing physician if questions or concerns [...] EDT With: Penelope CASAS DO, FAAFP Where: [facility] [address] [place] [address], [place] [address]- Medications What How Much When Instructions New fluticasone nasal (Flonase 0.05 mg/ inh [place]) 2 Sprays Nasal Inhalation Every day Refills: 11 each nostril [facility] Unchanged enoxaparin (Lovenox 40 mg/ 0.4 mL [...] physician if questions or concerns [id number] [address] [place], [place] [id number] [phone] Allergies Milk Products (Illness) ciprofloxacin (Numbness and [...] for choosing us for your care. Normal [facility] BhCG Quanton 06-09-2024 HCG.beta subunit Qn 2 m[IU]/mL Normal 1-3 [facility] Comment on above: Result Comment: 'F N ON < 1 - 3' ' 0.2 - 1 WEEK = 5 TO 50' ' 1 - 2 WEEKS = 50 - 500' ' 2 - 3 WEEKS = 100 - 5000' ' 3 - 4 WEEKS = 500 - 48500' ' 4 - 5 WEEKS = 1000 - 55759' ' 5 - 6 WEEKS = 38951 - 856736' ' 6 - 8 WEEKS = 176[address] - 004624' ' 8 - 12 WEEKS = 77207 - 642195' Performed By: #### 2 516147 #### [facility] [address] [place] [address] CHEMISTRYOrdered By: SYSTEM SYSTEM on 06-09-2024 TSH [...] from inside ear, not outside Moved from [place] Review of Systems PHQ Score Initial Depression [...] antibody with hypercoagulable state (D68.61: Antiphospholipid syndrome) [facility] Department of hematology/oncology following and treating with Lovenox, please see their consultation 05/28/2024. Treats with Lovenox 40 mg subcu every 24 hours 2. H/O: CVA (Z86.79: Personal history of other diseases of the circulatory system) Please see #1. 3. 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 Metformin XR 500 mg tabs 2 [...] Daily, 16 gram, Refill(s) 11, each nostril, [facility]pharmacy #[id number], 168, cm, 06/09/24 14:03:00 EST, [...] Penelope CASAS DO, FAAFP, FAM, PED In 6 months [address] [place] [address]- [phone] (more content not included)... Normal [facility] Comment on above: Result Comment: Elec tronically Signed By: Penelope CASAS DO, FAAFP\.br\Date and Time Signed: 06/09/24 14:24 EST TSHon 06-09-2024 TSH Qn 1.97 m[IU]/L Normal 0.34-5.60 [facility] Comment on above: Performed By: #### 2 [id number] #### [facility] [address] [place] [address] BhCG Quanton 05-31-2024 HCG.beta subunit Qn 6 m[IU]/mL High 1-3 [facility] Comment on above: Result Comment: 'F N ON < 1 - 3' ' 0.2 - 1 WEEK = 5 TO 50' ' 1 - 2 WEEKS = 50 - 500' ' 2 - 3 WEEKS = 100 - 5000' ' 3 - 4 WEEKS = 500 - 55652' ' 4 - 5 WEEKS = 1000 - 41259' ' 5 - 6 WEEKS = 816[address] - 675363' ' 6 - 8 WEEKS = 389[address] - 993201' ' 8 - 12 WEEKS = 80816 - 885312' Performed By: #### 2 [id number] #### [facility] [address] [place] [address] 25([place])D3 [facility] 25-hydroxyvitamin D3 [Mass/Vol] 27.8 ng/mL Low 31.0-80.0 [facility] Comment on above: Order Comment: Speci men Type: BLOOD SPECIMENOrdering Facility: [facility] Address: [facility] [place] [address] Result Comment: Clas sification of 25 [place] Vitamin D status: Deficiency/Insufficiency: < or = 30 ng/ml. Sufficiency/Optimal Levels: 31-80 ng/mL Toxicity: > 100 ng/mL. Test performed by chemiluminescent immunoassay. Performed By: #### 1 989-3 ####[facility] LABCLIA [id number] [facility] [id number] [place] [id number] [place] CBC W Auto Differential pane l (Bld)on 05-28-2024 Basophils (Bld) [#/Vol] 0.03 10*3/uL Normal <0.11 [facility] Comment on above: Order Comment: Speci men Type: BLOOD SPECIMENOrdering Facility: [facility] Address: [address] [place] [address] Performed By: #### 5 7021-8 ####[facility] LABCLIA [id number] [place] [address] Basophils/100 WBC (Bld) 0.4 % Normal [facility] Comment on above: Order Comment: Speci men Type: BLOOD SPECIMENOrdering Facility: [facility] Address: [address] [place] [address] Performed By: #### 5 7021-8 ####[facility] LABCLIA [id number] [place] [address] Differential cell count method Nom (Bld) Auto Normal [facility] Comment on above: Order Comment: Speci men Type: BLOOD SPECIMENOrdering Facility: [facility] Address: [address] [place] [address] Performed By: #### 5 7021-8 ####[facility] LABCLIA [id number] [place] [address] Eosinophils (Bld) [#/Vol] 0.08 10*3/uL Normal <0.46 [facility] Comment on above: Order Comment: Speci men Type: BLOOD SPECIMENOrdering Facility: [facility] Address: [address] [place] [address] Performed By: #### 5 7021-8 ####[facility] LABIA [id number] [place] [address] Eosinophils/100 WBC (Bld) 0.9 % Normal [facility] Comment on above: Order Comment: Speci men Type: BLOOD SPECIMENOrdering Facility: [facility] Address: [address] [place] [address] Performed By: #### 5 7021-8 ####[facility] LABCLIA [id number] [place] [address] Erythrocyte distribution width (RBC) [Ratio] 13.8 % Normal 11.5-15.0 [facility] Comment on above: Order Comment: Speci men Type: BLOOD SPECIMENOrdering Facility: [facility] Address: [address] [place] [address] Performed By: #### 5 7021-8 ####[facility] LABCLIA [id number] [place] [address] Hematocrit (Bld) [Volume fraction] 34.0 % Low 36.0-46.0 [facility] Comment on above: Order Comment: Speci men Type: BLOOD SPECIMENOrdering Facility: [facility] Address: [address] [place] [address] Performed By: #### 5 7021-8 ####[facility] LABIA [id number] [place] [address] Hemoglobin (Bld) [Mass/Vol] 11.5 g/dL Normal 11.5-15.5 [facility] Comment on above: Order Comment: Speci men Type: BLOOD SPECIMENOrdering Facility: [facility] Address: [address] [place] [address] Performed By: #### 5 7021-8 ####[facility] LABCLIA [id number] [place] [address] Immature granulocytes (Bld) [#/Vol] 0.03 10*3/uL Normal <0.10 [facility] Comment on above: Order Comment: Speci men Type: BLOOD SPECIMENOrdering Facility: [facility] Address: [address] [place] [address] Performed By: #### 5 7021-8 ####[facility] LABCLIA [id number] [place] [address] Immature granulocytes/100 WBC (Bld) 0.4 % Normal [facility] Comment on above: Order Comment: Speci men Type: BLOOD SPECIMENOrdering Facility: [facility] Address: [address] [place] [address] Performed By: #### 5 7021-8 ####[facility] LABCLIA [id number] [place] [address] Lymphocytes (Bld) [#/Vol] 2.86 10*3/uL Normal 1.00-4.00 [facility] Comment on above: Order Comment: Speci men Type: BLOOD SPECIMENOrdering Facility: [facility] Address: [address] [place] [address] Performed By: #### 5 7021-8 ####[facility] LABCLIA [id number] [place] [address] Lymphocytes/100 WBC (Bld) 33.4 % Normal [facility] Comment on above: Order Comment: Speci men Type: BLOOD SPECIMENOrdering Facility: [facility] Address: [address] [place] [address] Performed By: #### 5 7021-8 ####[facility] LABCLIA [id number] [place] [address] MCH (RBC) [Entitic mass] 30.8 pg Normal 26.0-34.0 [facility] Comment on above: Order Comment: Speci men Type: BLOOD SPECIMENOrdering Facility: [facility] Address: [address] [place] [address] Performed By: #### 5 7021-8 ####[facility] LABCLIA [id number] [place] [address] MCHC (RBC) [Mass/Vol] 33.8 g/dL Normal 30.5-36.0 [facility] Comment on above: Order Comment: Speci men Type: BLOOD SPECIMENOrdering Facility: [facility] Address: [address] [place] [address] Performed By: #### 5 7021-8 ####[facility] LABCLIA [id number] [place] [address] MCV (RBC) [Entitic vol] 91.2 fL Normal 80.0-100.0 [facility] Comment on above: Order Comment: Speci men Type: BLOOD SPECIMENOrdering Facility: [facility] Address: [address] [place] [address] Performed By: #### 5 7021-8 ####[facility] LABCLIA [id number] [place] [address] Monocytes (Bld) [#/Vol] 0.66 10*3/uL Normal <0.87 [facility] Comment on above: Order Comment: Speci men Type: BLOOD SPECIMENOrdering Facility: [facility] Address: [address] [place] [address] Performed By: #### 5 7021-8 ####[facility] LABCLIA [id number] [place] [address] Monocytes/100 WBC (Bld) 7.7 % Normal [facility] Comment on above: Order Comment: Speci men Type: BLOOD SPECIMENOrdering Facility: [facility] Address: [address] [place] [address] Performed By: #### 5 7021-8 ####[facility] LABCLIA [id number] [place] [address] Neutrophils (Bld) [#/Vol] 4.90 10*3/uL Normal 1.45-7.50 [facility] Comment on above: Order Comment: Speci men Type: BLOOD SPECIMENOrdering Facility: [facility] Address: [address] [place] [address] Performed By: #### 5 7021-8 ####[facility] LABCLIA [id number] [place] [address] Neutrophils/100 WBC (Bld) 57.2 % Normal [facility] Comment on above: Order Comment: Speci men Type: BLOOD SPECIMENOrdering Facility: [facility] Address: [address] [place] [address] Performed By: #### 5 7021-8 ####[facility] LABCLIA [id number] [place] [address] Nucleated RBC (Bld) [#/Vol] 10*3/uL Normal <0.01 [facility] Comment on above: Order Comment: Speci men Type: BLOOD SPECIMENOrdering Facility: [facility] Address: [address] [place] [address] Performed By: #### 5 7021-8 ####[facility] LABCLIA [id number] [place] [address] Nucleated RBC/100 WBC (Bld) [Ratio] 0.0 /100 WBC Normal [facility] Comment on above: Order Comment: Speci men Type: BLOOD SPECIMENOrdering Facility: [facility] Address: [address] [place] [address] Performed By: #### 5 7021-8 ####[facility] LABCLIA [id number] [place] [address] Platelet mean volume (Bld) [Entitic vol] 9.6 fL Normal 9.0-12.7 [facility] Comment on above: Order Comment: Speci men Type: BLOOD SPECIMENOrdering Facility: [facility] Address: [address] [place] [address] Performed By: #### 5 7021-8 ####[facility] LABCLIA [id number] [place] [address] Platelets (Bld) [#/Vol] 345 10*3/uL Normal 150-400 [facility] Comment on above: Order Comment: Speci men Type: BLOOD SPECIMENOrdering Facility: [facility] Address: [address] [place] [address] Performed By: #### 5 7021-8 ####[facility] LABCLIA [id number] [place] [address] RBC (Bld) [#/Vol] 3.73 10*6/uL Low 3.90-5.20 [facility] Comment on above: Order Comment: Speci men Type: BLOOD SPECIMENOrdering Facility: [facility] Address: [address] [place] [address] Performed By: #### 5 7021-8 ####[facility] LABIA [id number] [place] [address] WBC (Bld) [#/Vol] 8.56 10*3/uL Normal 3.70-11.00 [facility] Comment on above: Order Comment: Speci men Type: BLOOD SPECIMENOrdering Facility: [facility] Address: [address] [place] [address] Performed By: #### 5 7021-8 ####[facility] [id number] [place] [address] CNOVSPon 05-28-2024 OVS Visit (SP) Office ([facility]) SANNA RENDON ([id number]) 1985 F Date Time Provider Department 05/28/24 1:00 PM KRISTOFER CALIX During your visit today, we recorded the following information about you: Temperature Pulse Respiration Blood pressure 97.6 degrees 72/minute 16/minute 123/83 Weight Height 98.5 kg 1.677 m Kristofer Calix MD 05/29/2024 9:13 AM Signed NAME: Sanna Rendon CLINIC NO.: [id number] DATE OF SERVICE: May 28, 2024 (Levon) [...] later in 2018. These were found in [place], [place]. I don't have access to these [...] a target-like rash shortly before presenting to [facility] in 2016 with headaches and was [...] soon. When she had a stroke in [place], she had symptoms up to a month [...] losing weight. (more content not included)... Normal [facility] Sisi 05-28-2024 CNPN Telephone ([facility]) SANNA RENDON ([id number]) 1985 F Date Time Provider Department 05/28/24 [facility] CALIX [facility] During your visit today, we recorded the following information about you: Taylor Escudero 05/28/2024 1:45 PM Signed Triage to call with iron results Rachael Johnson RN 05/30/2024 8:23 AM Signed Fely: Iron studies normal, any recommendations for Vit D? Please advise Kristofer Calix MD 06/02/2024 12:31 PM Signed Vitamin D OTC 5000 international unit(s) daily please. Rachael Johnson RN 06/02/2024 12:42 PM Signed Pt [...] Status:Closed by TAYLOR ESCUDERO on 05/28/24 Normal [facility] Comprehensive metabolic 2000 panelon 05-28-2024 Albumin [Mass/Vol] 4.4 g/dL Normal 3.9-4.9 [facility] Comment on above: Order Comment: Speci men Type: BLOOD SPECIMENOrdering Facility: [facility] Address: [address] [place] [address] Performed By: #### 2 4323-8 ####[facility] LABCLIA [id number] [place] [address] ALP [Catalytic activity/Vol] 59 U/L Normal 34-123 [facility] Comment on above: Order Comment: Speci men Type: BLOOD SPECIMENOrdering Facility: [facility] Address: [address] [place] [address] Performed By: #### 2 4323-8 ####[facility] LABCLIA [id number] [place] [address] ALT [Catalytic activity/Vol] 12 U/L Normal 7-38 [facility] Comment on above: Order Comment: Speci men Type: BLOOD SPECIMENOrdering Facility: [facility] Address: [address] [place], [place] [address] Performed By: #### 2 4323-8 ####[facility] LABCLIA [id number] [place] [address] Anion gap [Moles/Vol] 10 mmol/L Normal 8-15 [facility] Comment on above: Order Comment: Speci men Type: BLOOD SPECIMENOrdering Facility: [facility] Address: [address] [place] [address] Performed By: #### 2 4323-8 ####[facility] LABCLIA [id number] [place] [address] AST [Catalytic activity/Vol] 11 U/L Low 13-35 [facility] Comment on above: Order Comment: Speci men Type: BLOOD SPECIMENOrdering Facility: [facility] Address: [address] [place] [address] Performed By: #### 2 4323-8 ####[facility] LABCLIA [id number] [place] [address] Bilirubin [Mass/Vol] 0.2 mg/dL Normal 0.2-1.3 [facility] Comment on above: Order Comment: Speci men Type: BLOOD SPECIMENOrdering Facility: [facility] Address: [address] [place] [address] Performed By: #### 2 4323-8 ####[facility] LABCLIA [id number] [place] [address] Calcium [Mass/Vol] 9.7 mg/dL Normal 8.5-10.2 [facility] Comment on above: Order Comment: Speci men Type: BLOOD SPECIMENOrdering Facility: [facility] Address: [address] [place] [address] Performed By: #### 2 4323-8 ####[facility] LABCLIA [id number] [place] [address] Chloride [Moles/Vol] 99 mmol/L Normal 98-107 [facility] Comment on above: Order Comment: Speci men Type: BLOOD SPECIMENOrdering Facility: [facility] Address: [address] [place] [address] Performed By: #### 2 4323-8 ####[facility] LABCLIA [id number] [place] [address] CO2 [Moles/Vol] 25 mmol/L Normal 22-30 [facility] Comment on above: Order Comment: Speci men Type: BLOOD SPECIMENOrdering Facility: [facility] Address: [address] [place] [address] Performed By: #### 2 4323-8 ####[facility] LABCLIA [id number] [place] [address] Creatinine [Mass/Vol] 0.71 mg/dL Normal 0.58-0.96 [facility] Comment on above: Order Comment: Speci men Type: BLOOD SPECIMENOrdering Facility: [facility] Address: [address] [place] [address] Performed By: #### 2 4323-8 ####[facility] LABCLIA [id number] [place] [address] Creatinine and Glomerular filtration rate.predicted panel (S/P/Bld) 112 mL/min/1.73m??? Normal >=60 [facility] Comment on above: Order Comment: Speci men Type: BLOOD SPECIMENOrdering Facility: [facility] Address: [address] [place] [address] Result Comment: Hawa mated Glomerular Filtration Rate [...] actual GFR. Performed By: #### 2 4323-8 ####[facility] LABCLIA [id number] [place] [address] Glucose [Mass/Vol] 79 mg/dL Normal 74-99 [facility] Comment on above: Order Comment: Cesar redd Type: BLOOD SPECIMENOrdering Facility: [facility] Address: [address] [place] [address] Result Comment: The [place] Diabetes Association (ADA) provides guidance for cutoff [...] Standards of Medical Care in Diabetes 2016, [place] [employer]. Diabetes Care. 2016.39(Suppl 1). Performed By: #### 2 4323-8 ####[facility] LABCLIA [id number] [place] [address] Potassium [Moles/Vol] 4.0 mmol/L Normal 3.7-5.1 [facility] Comment on above: Order Comment: Cesar redd Type: BLOOD SPECIMENOrdering Facility: [facility] Address: [address] [place] [address] Performed By: #### 2 4323-8 ####[facility] LABCLIA [id number] [place] [address] Protein [Mass/Vol] 7.1 g/dL Normal 6.3-8.0 [facility] Comment on above: Order Comment: Cesar redd Type: BLOOD SPECIMENOrdering Facility: [facility] Address: [address] [place] [address] Performed By: #### 2 4323-8 ####[facility] LABCLIA [id number] [place] [address] Sodium [Moles/Vol] 134 mmol/L Low 136-144 [facility] Comment on above: Order Comment: Speci men Type: BLOOD SPECIMENOrdering Facility: [facility] Address: [address] [place] [address] Performed By: #### 2 4323-8 ####[facility] LABCLIA [id number] [place] [address] Urea nitrogen [Mass/Vol] 8 mg/dL Normal 7-21 [facility] Comment on above: Order Comment: Speci men Type: BLOOD SPECIMENOrdering Facility: [facility] Address: [address] [place] [address] Performed By: #### 2 4323-8 ####[facility] LABCLIA [id number] [place] [address] Ferritin SerPl-mCncon 2024 Ferritin [Mass/Vol] 73.8 ng/mL Normal 14.7-205.1 [facility] Comment on above: Order Comment: Speci men Type: BLOOD SPECIMENOrdering Facility: [facility] Address: [address] [place] [address] Performed By: #### 5 0190-8, 2276-4, 3016-3 ####[facility] LABCLIA [id number] [place] [address] [place] Folate SerPl-mCncon 05-28-19 25 Folate [Mass/Vol] ng/mL Normal >4.7 [facility] Comment on above: Order Comment: Speci men Type: BLOOD SPECIMENOrdering Facility: [facility] Address: [address] [place] [address] Result Comment: A re sult of > 20 ng/mL is not necessarily indicative of a pathologic or treatable condition: it reflects a limitation of the test methodology. Assay reference range: 4.8 to 24.2 ng/mL. Suitable for detection of folate deficiency. Reference: Folate III (Folate III) [package insert V 1.0 [place]an]. [facility], [place], [place]: February 2015. Performed By: #### 2 132-9, 2284-8 ####[facility] LABCLIA [id number] [place] [address] [place] Iron and Iron binding capaci ty panelon 05-28-2024 Iron [Mass/Vol] 68 ug/dL Normal 41-186 [facility] Comment on above: Order Comment: Speci men Type: BLOOD SPECIMENOrdering Facility: [facility] Address: [address] [place] [address] Performed By: #### 5 0190-8, 2276-4, 3016-3 ####[facility] LABIA [id number] [address] [place] Iron binding capacity [Mass/Vol] 367 ug/dL Normal 232-386 [facility] Comment on above: Order Comment: Speci men Type: BLOOD SPECIMENOrdering Facility: [facility] Address: [address] [place] [address] Performed By: #### 5 0190-8, 2276-4, 3016-3 ####[facility] LABIA [id number] [place] [address] [place] Iron/TIBC [Molar ratio] 18.5 % Normal 15.0-57.0 [facility] Comment on above: Order Comment: Speci men Type: BLOOD SPECIMENOrdering Facility: [facility] Address: [address] [place] [address] Performed By: #### 5 0190-8, 6-4, 3016-3 ####[facility] LABCLIA [id number] [place] [id number] [place] TSH SerPl-aCncon 05-28-2024 TSH Qn 2.940 m[IU]/L Normal 0.270-4.20 0 [facility] Comment on above: Order Comment: Speci men Type: BLOOD SPECIMENOrdering Facility: [facility] Address: [address] [place] [address] Result Comment: If t he patient is , TSH reference range varies by gestational period: First Trimester (weeks 9-12): 0.180-2.990 mIU/L Second Trimester: 0.110-3.980 mIU/L Third Trimester: 0.480-4.710 mIU/L Danny Varela et al. A Practical Approach for the Verifications and Determination of Site- and Trimester-Specific Reference Intervals for Thyroid Function tests in . Thyroid, 2019:29:3:412-420. Saeed Pan, et al. 2017 Guidelines of the [place] Thyroid Association for the Diagnosis and Management of Thyroid Disease during and the . Thyroid, 2017:27:3:315-389. Performed By: #### 5 0190-8, 2276-4, 3016-3 ####[facility] LABIA [id number] [place] [address] [place] Vit B12 SerPl-mCncon 025 Cobalamin (Vitamin B12) [Mass/Vol] 487 pg/mL Normal 232-1245 [facility] Comment on above: Order Comment: Speci men Type: BLOOD SPECIMENOrdering Facility: [facility] Address: [address] [place] [address] Performed By: #### 2 132-9, 2284-8 ####[facility] LABIA [id number] [place] [address] [place] BhCG Quanton 05-17-2024 HCG.beta subunit Qn 101 m[IU]/mL High 1-3 [facility] Comment on above: Result Comment: 'F N ON < 1 - 3' ' 0.2 - 1 WEEK = 5 TO 50' ' 1 - 2 WEEKS = 50 - 500' ' 2 - 3 WEEKS = 100 - 5000' ' 3 - 4 WEEKS = 500 - 21498' ' 4 - 5 WEEKS = 1000 - 61901' ' 5 - 6 WEEKS = 41738 - 376161' ' 6 - 8 WEEKS = 96678 - 705014' ' 8 - 12 WEEKS = 65967 - 907282' Performed By: #### 2 [id number] #### [facility] [address] [place] [address] [facility] 05-14-2024 CNPN Telephone (HEMASA) SANNA RENDON ([id number]) 1985 F Date Time Provider Department 05/14/24 [...] for deficiency. She is aware if her crown perforator operator or PCP request any additional testing, we can certainly draw with her appt 05/21 (will just need to fax orders). She denies any further questions needs or concerns at this time. Rachael Johnson RN Fely: FYI Allergies As of [...] Date Reviewed: 04/28/2024 Reviewed by: Katherine Negrete APRN.BILINGUAL INTERPRETER - Fully Assessed Reason for Visit: Patient [...] Status:Closed by RACHAEL JOHNSON on 05/14/24 Normal [facility] ALL CBC WITH AUTO DIFFon BASOPHILS ABSOLUTE AUTO 0 [facility] Basophils/100 WBC (Bld) 0.2 % 0.2 - 2.0 % [facility] Eosinophils/100 WBC (Bld) 0.7 % Low 0.9 - 7.0 % [facility] Erythrocyte distribution width (RBC) [Ratio] 13 % 11.0 - 15.0 % [facility] Hematocrit (Bld) [Volume fraction] 35.6 % Low 36.0 - 48.0 % [facility] Hemoglobin (Bld) [Mass/Vol] 12.3 g/dL 12.0 - 16.0 g/dL [facility] IMMATURE GRANULOCYTES ABS AUTO 0.[address] [facility] Immature granulocytes/100 WBC (Bld) 0.4 % 0.0 - 0.5 % [facility] Interpretation and review of laboratory results Abnormal [facility] LYMPHOCYTES ABSOLUTE AUTO 2.5 [facility] Lymphocytes/100 WBC (Bld) 26.1 % 20.5 - 60.0 % [facility] MCH (RBC) [Entitic mass] 31 pg 26.7 - 34.[address] [facility] MCHC (RBC) [Mass/Vol] 34.6 g/dL 29.9 - 35.2 g/dL [facility] MCV (RBC) [Entitic vol] 89.7 fL 81.0 - 99.[address] [facility] MONOCYTES ABSOLUTE AUTO 0.6 [facility] Monocytes/100 WBC (Bld) 6 % 1.7 - 12.0 % [facility] NEUTROPHILS ABSOLUTE AUTO 6.3 [facility] Neutrophils/100 WBC (Bld) 66.6 % 43.0 - 75.0 % [facility] Platelet mean volume (Bld) [Entitic vol] 9.9 fL 9.5 - 13.[address] [facility] TBH EO # 0.1 [facility] PLT 315 [facility] RBC 3.97 Low [facility] WBC 9.4 [facility] CLINIS[facility] Omar 05-10-2024 L ------- Specimen: [id number] Received: 05/12/24 Status: BALDOMERO Andrade Num: [id number] Spec Type: Surgical Subm Dr: Wilton Herrmann Tissues: A Placenta - Other than 3rd Trimester (14 WK PLACENTA) Procedures: HE/3, Gross/Micro L4 Age/ Patient Sex Location Account Attending Physician Justice,Katie 38/F LABELL [id number] Wilton Herrmann SPEC NUM: [id number] RECD: 05/12/24-1209 STATUS: BALDOMERO ANDRADE NUM: [id number] AMARILYS: 05/10/24- SUBM DR: Wilton Herrmann ENTERED: 05/12/24-1215 [facility] DR: Piyush,Lab SPEC TYPE: Surgical DEPT: [facility] ENTERED BY: [id number] RECV BY: [id number] ORDERED: HE/3, Gross/Micro L4 ORDERED: HE/3, Gross/Micro [...] received Specimen: [id number] Received: 05/12/24 Status: BALDOMERO Colealexa Num: [id number] Spec Type: Surgical Subm Dr: Wilton Herrmann Tissues: A Placenta - Other than 3rd Trimester (14 WK PLACENTA) Procedures: /, Dann/Rah L4 Patient: Sanna Rendon [id number] (Continued) Specimen: [id number] Received: 05/12/24 (Continued) Gross Description (Continued) Signed (signature on file) Vivi Hill MD 05/13/24 1605 Specimen: [id number] Received: 05/12/24 Status: BALDOMERO Andrade Num: [id number] Spec Type: Surgical Subm Dr: Wilton Herrmann Tissues: A Placenta - Other than 3rd Trimester (14 WK PLACENTA) Procedures: HE/3, Gross/Micro L4 Patient: Sanna Rendon [id number] (Continued) Specimen: [id number] Received: 05/12/24 (Continued) Gross Description (Continued) GENERAL: [...] and uniform. Cassettes: A1 Rolled membrane A2-A3 Senior Architect sections of placenta (3, ss, BS25-17 A) JG . CPT Codes 24509 Specimen: [id number] Received: 05/12/24 Status: BALDOMERO Andrade Num: [id number] Spec Type: Surgical Subm Dr: Wilton Herrmann Tissues: A Placenta - Other than 3rd Trimester (14 WK PLACENTA) Procedures: Dann LANDEROS/Rah L4 Patient: aSnna Rendon [id number] (Continued) Signed (signature on file) Vivi Hill MD 05/13/24 3762 Normal [facility] OB TRANSVAGINALon US OB TRANSVAGINAL TITLE OF EXAM: OB [...] UA Negative Negative - 4(70) +++ mg/dL [facility] Blood, UA Negative Negative - 50 Max/mcL [facility] Clarity, UA Clear [facility] Color, UA Yellow [facility] Glucose, UA Negative Negative - 2000(110) ++++ mg/dL [facility] Interpretation and review of laboratory results Normal [facility] Ketones, UA Negative Negative - 160(16) ++++ mg/dL [facility] Leukocytes, UA Negative Negative - 500+++ John/mcL [facility] Nitrite, UA Negative Negative - Positive [facility] pH, UA 6 5 - 9 [facility] Protein, UA Negative Negative - 2000(20) ++++ mg/dL [facility] Spec Grav, UA 1.01 1 - 1.03 [facility] Urobilinogen, UA 0.2 0.2 - 12 mg/dL [facility] BOX TESTon 04-12-2024 BOX TEST SENT OUT Y [facility] BOX1 Grid20/20 [facility] BOX2 04/12/24 [facility] RAPID (URINE )on 04-12-2024 AMPHETAMINE SCREEN URINE Negative NEGATIVE [facility] BARBITURATES SCREEN URINE Negative NEGATIVE [facility] BENZODIAZEPINES SCREEN URINE Negative NEGATIVE [facility] BUPRENORPHINE SCREEN URINE Negative NEGATIVE [facility] Comment on above: DRUG CLASS TEST [...] 300 ng/mL CANNABINOID SCREEN URINE Negative NEGATIVE [facility] COCAINE SCREEN URINE Negative NEGATIVE [facility] METHADONE SCREEN URINE Negative NEGATIVE [facility] METHAMPHETAMINES SCREEN URINE Negative NEGATIVE [facility] OPIATE SCREEN URINE Negative NEGATIVE [facility] OXYCODONE SCREEN URINE Negative NEGATIVE [facility] PHENCYCLIDINE SCREEN URINE Negative NEGATIVE [facility] TRICYCLIC ANTIDEPRESSANT URINE Negative NEGATIVE [facility] HCG ( test) Ql (U)o n 04-04-2024 Interpretation and review of laboratory results Abnormal [facility] Preg Test, Ur Positive Negative [facility] Urinalysis macro (dipstick) panel (U)on 04-04-2024 Bilirubin, UA Negative Negative - 4(70) +++ mg/dL [facility] Blood, UA Negative Negative - 50 Max/mcL [facility] Clarity, UA Clear [facility] Color, UA Yellow [facility] Glucose, UA Negative Negative - 1999(110) ++++ mg/dL [facility] Interpretation and review of laboratory results Normal [facility] Ketones, UA Negative Negative - 160(16) ++++ mg/dL [facility] Leukocytes, UA Negative Negative - 500+++ John/mcL [facility] Nitrite, UA Negative Negative - Positive [facility] pH, UA 5.5 5 - 9 [facility] Protein, UA Negative Negative - 1999(20) ++++ mg/dL [facility] Spec Grav, UA 1.02 1 - [...] Locations R1: This test was performed at: [facility], [address] [place] [address], [address]- , , [facility] Comment on above: Performed By: #### 2 [id number] #### [facility] [address] [place] [address] BhCG Quanton 03-01-2024 HCG.beta subunit Qn 747 m[IU]/mL High 1-3 [facility] Comment on above: Result Comment: 'F N ON < 1 - 3' ' 0.2 - 1 WEEK = 5 TO 50' ' 1 - 2 WEEKS = 50 - 500' ' 2 - 3 WEEKS = 100 - 5000' ' 3 - 4 WEEKS = 500 - 48302' ' 4 - 5 WEEKS = 1000 - 48854' ' 5 - 6 WEEKS = 23205 - 743593' ' 6 - 8 WEEKS = 28584 - 731106' ' 8 - 12 WEEKS = 76041 - 737179' Performed By: #### 2 [id number] #### [facility] [address] [place] [address] CHEMISTRYOrdered By: SYSTEM SYSTEM on 03-01-2024 HCG.beta [...] 3 - 4 WEEKS = 500 - 46155' ' 4 - 5 WEEKS = 1000 - 90934' ' 5 - 6 WEEKS = 32648 - 447707' ' 6 - 8 WEEKS = 31007 - 239207' ' 8 - 12 WEEKS = 51936 - 718726' [facility] 02-27-2024 HCG.beta subunit Qn 268 m[IU]/mL [facility] 1-3 [facility] Comment on above: Result Comment: 'F N ON < 1 - 3' ' 0.2 - 1 WEEK = 5 TO 50' ' 1 - 2 WEEKS = 50 - 500' ' 2 - 3 WEEKS = 100 - 5000' ' 3 - 4 WEEKS = 500 - 31183' ' 4 - 5 WEEKS = 1000 - 97901' ' 5 - 6 WEEKS = 53191 - 633931' ' 6 - 8 WEEKS = 89987 - 863378' ' 8 - 12 WEEKS = 76728 - 683999' Performed By: #### 2 [id number] #### [facility] [address] [place] [address] [facility] 02-27-2024 [facility] Telephone (ROD) SANNA RENDON ([id number]) 1985 F Date Time Provider Department 02/27/24 RACHAEL JOHNSON During your visit today, we recorded the following information about you: Rachael Johnson, RN 02/27/2024 9:45 AM Signed Pt 4 [...] Fully Assessed Reason for Visit: Patient Question [3187] Prescriptions as of 02/28/2024 - enoxaparin (LOVENOX) [...] Encounter Status:Closed by RACHAEL JOHNSON on 02/28/24 [facility] Quanton 02-25-2024 HCG.beta subunit Qn 123 m[IU]/mL High 1-3 [facility] Comment on above: Result Comment: 'F N ON < 1 - 3' ' 0.2 - 1 WEEK = 5 TO 50' ' 1 - 2 WEEKS = 50 - 500' ' 2 - 3 WEEKS = 100 - 5000' ' 3 - 4 WEEKS = 500 - 55139' ' 4 - 5 WEEKS = 1000 - 00438' ' 5 - 6 WEEKS = 02480 - 801675' ' 6 - 8 WEEKS = 77730 - 483461' ' 8 - 12 WEEKS = 84682 - 815763' Performed By: #### 2 [id number] #### [facility] [address] [place] [address] CHEMISTRYOrdered By: SYSTEM SYSTEM on 02-25-2024 HCG.beta [...] 3 - 4 WEEKS = 500 - 59979' ' 4 - 5 WEEKS = 1000 - 08563' ' 5 - 6 WEEKS = 49670 - 420656' ' 6 - 8 WEEKS = 37471 - 933272' ' 8 - 12 WEEKS = 89799 - 974979' WceO[facility]mmr 02-25-2024 HbA1c (Bld) [Mass fraction] 6.0 % High <=5.9 [facility] Comment on above: Performed By: #### 7 [id number] #### [facility] [address] [place] [address] HIV Screen 4th Generation wR fxon 02-24-2024 HIV 1+2 Ab+HIV1 p24 Ag IA Ql Non-Reactive Invalid Interpretation Code Non Reactive [facility] Comment on above: Result Comment: HIV- 1/HIV-2 antibodies and HIV-1 p24 antigen were NOT detected. There is no laboratory evidence of HIV infection. HIV Negative Performed at: [address] [id number] PhD Jd Montano Performed By: #### 9 [id number] #### [facility] [address] [place] [address] BhCG Quanton 02-23-2024 HCG.beta subunit Qn 52 m[IU]/mL High 1-3 [facility] Comment on above: Result Comment: 'F N ON < 1 - 3' ' 0.2 - 1 WEEK = 5 TO 50' ' 1 - 2 WEEKS = 50 - 500' ' 2 - 3 WEEKS = 100 - 5000' ' 3 - 4 WEEKS = 500 - 22748' ' 4 - 5 WEEKS = 1000 - 52528' ' 5 - 6 WEEKS = 96570 - 923073' ' 6 - 8 WEEKS = 34297 - 207900' ' 8 - 12 WEEKS = 18545 - 371319' Performed By: #### 2 [id number] #### [facility] [address] [place] [address] CHEMISTRYOrdered By: SYSTEM SYSTEM on 02-23-2024 Cholesterol [...] 3 - 4 WEEKS = 500 - 36033' ' 4 - 5 WEEKS = 1000 - 20622' ' 5 - 6 WEEKS = 03201 - 717314' ' 6 - 8 WEEKS = 30730 - 373424' ' 8 - 12 WEEKS = 41106 - 350039' Triglyceride [Mass/Vol] 212 mg/dL High <=149mg/dL Remisol Chem TSH Qn 5.68 m[IU]/L High 0.34 - 5.60 mcIU/mL Remisol Chem CHEMISTRYOrdered By: Chelsey Price on 02-23-2024 HbA1c (Bld) [Mass fraction] 5.9 % Normal <=5.9% [facility] ChemAutoSS [id number] 02-23-2024 HbA1c (Bld) [Mass fraction] 5.9 % Normal <=5.9 [facility] Comment on above: Performed By: #### 7 [id number] #### [facility] [address] [place] [address] Lipid Panelon 02-23-2024 Cholesterol [Mass/Vol] 225 mg/dL High 120-200 [facility] Comment on above: Performed By: #### 2 [id number] #### [facility] [address] [place] [address] Cholesterol in HDL [Mass/Vol] 40 mg/dL Invalid Interpretation Code [facility] Comment on above: Result Comment: '>= 60 LOW RISK' '<= 40 HIGH RISK' Performed By: #### 2 [id number] #### [facility] [address] [place] [address] Cholesterol in LDL [Mass/Vol] 171 mg/dL High <=129 [facility] Comment on above: Performed By: #### 2 [id number] #### [facility] [address] [place] [address] Cholesterol in VLDL [Mass/Vol] 42 mg/dL High 7-40 [facility] Comment on above: Performed By: #### 2 [id number] #### [facility] [address] [place] [address] Triglyceride [Mass/Vol] 212 mg/dL High <=149 [facility] Comment on above: Performed By: #### 2 [id number] #### [facility] [address] [place] [address] TSHon 02-23-2024 TSH Qn 5.68 m[IU]/L High 0.34-5.60 [facility] Comment on above: Performed By: #### 2 252714 #### [facility] [address] [place] [address] Ambulatory Visit Summaryon 1 Ambulatory Visit Summary [...] EST With: Penelope CASAS DO, FAAFP Where: [facility] [address] [place] [address]- You Need to Schedule the Following Appointments Follow Up with PRAVEEN RESENDEZ FAAFP, Penelope Tony, CHRIS, PED When: In 3 months Where: [address], [place] [address]- You Need to Complete the Following HgbA1c, [...] Vaginal marlee (more content not included)... 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 Gestational diabetes (O24.419: Gestational diabetes mellitus in , unspecified control) Metformin 500 mg daily XR tabs 2/day per [employer] SUPER[employer]OR Ordered: HgbA1c HgbA1c HgbA1c HgbA1c 6. Well [...] DO, FAAFP, CHRIS, PED In [address] [place] [address] [place] [address]- Additional Instructions: Patient Education Acute Bronchitis, Adult Problem List/Past Medical History Ongoing Acute (more content not included)... Normal [facility] Comment on above: Result Comment: Elec tronically Signed By: Penelope CASAS DO, FAAFP\.br\Date and Time Signed: 02/05/24 14:44 EDT Ambulatory Visit Summaryon 1 Ambulatory Visit Summary Ambulatory Visit Summary JUSTICE, SANNA Jaylan :1985 Visit Date:02/02/2024 Ambulatory Visit Instructions Your [...] Community acquired pneumonia Refills: 5 Pickup at [facility] 1985 New azithromycin (azithromycin 250 mg Tab 5-day Dose Pack (Z-Jonny)) 1 Packets By Mouth As Directed Community acquired pneumonia Duration: 5 Days as directed on package labeling Pickup at [facility] 1985 Unchanged enoxaparin (Lovenox 40 mg/ [...] physician if questions or concerns Pharmacy Information [facility] 1986: [address] [place] [phone] Allergies Milk Products (Illness) ciprofloxacin (Numbness and [...] choosing us for your care. Normal [facility] Family Medicine Office/Clini c Noteon 02-02-2024 [...] COVID exposure- no History of Present Illness JUSTICE SANNA Guzman is a 38 Years White Female presenting [...] puff(s), Inhalation, q6hr, 1 EA, Refill(s) 5, [facility] 1985, 168, cm, 02/02/24 14:43:00 EDT, Height/Length Dosing, 101.1, kg, 02/02/24 14:43:00 EDT, Weight Dosing azithromycin, = 1 packet(s), Oral, As Directed, as directed on package labeling, X 5 day(s), # 6 tab(s), Refills(s) 0, Pharmacy: [facility] 1985, 168, cm, 02/02/24 14:43:00 EDT, [...] weekly Follow-up With When Contact Information Anni F. Gudimella MD, FAM, MED Only if needed [address] [place] [phone] Additional Instructions: Problem List/Past Medical History Ongoing [...] International_Unit (more content not included)... Normal [facility] Comment on above: Result Comment: Elec tronically Signed By: Anni Bernstein MD\.br\Date and Time Signed: 02/02/24 15:03 EDT MRI Brain w/o Contraston MRI Brain w/o [...] Transcribed by: LINDY Technologist: ALEXSANDRA Normal [facility] Cortisolon 12-08-2023 Cortisol [Mass/Vol] 12.5 microgram/dL Invalid Interpretation Code 6.2-19.4 [facility] Comment on above: Result Comment: Yolanda davis Note: The reference interval and flagging for this test is for an AM collection. If this is a PM collection please use: Cortisol PM: 2.3-11.9 Performed at: [facility] [address] [id number] PhD Jd Montano Performed By: #### 2 [id number] #### [facility] [address] [place] [address] T3 Freeon 12-08-2023 Free T3 [Mass/Vol] 2.5 pg/mL Invalid Interpretation Code 2.0-4.4 [facility] Comment on above: Result Comment: Perf ormed at: [facility] [address] [id number] PhD Jd Montano Performed By: #### 2 [id number] #### [facility] [address] [place] [address] Amylaseon 12-06-2023 Amylase [Catalytic activity/Vol] 38 U/L Normal 25-157 [facility] Comment on above: Performed By: #### 2 [id number] #### [facility] [address] [place] [address] CHEMISTRYOrdered By: SYSTEM SYSTEM on 12-06-2023 Amylase [...] 12-06-2023 CRP [Mass/Vol] 0.2 mg/dL Normal <=1.9 [facility] Comment on above: Performed By: #### 2 [id number] #### [facility] [address] [place] [address] Free T4on 12-06-2023 Free T4 [Mass/Vol] 0.58 ng/dL Normal 0.58-1.64 [facility] Comment on above: Performed By: #### 2 [id number] #### [facility] [address] [place] [address] HEMATOLOGYOrdered By: Isha Zheng on 12-06-2023 ESR (Bld) [Velocity] 18 mm/h Normal 0 - 34 mm/hr FT HemeAutoSS Sed Rate Automatedon 024 ESR (Bld) [Velocity] 18 mm/h Normal 0-34 [facility] Comment on above: Performed By: #### 1 [id number] #### [facility] [address] [place] [address] TSHon 12-06-2023 TSH Qn 4.97 m[IU]/L Normal 0.34-5.60 [facility] Comment on above: Performed By: #### 2 [id number] #### [facility] [address] [place] [address] Vit B12on 12-06-2023 Cobalamin (Vitamin B12) [Mass/Vol] 328 pg/mL Normal 50-1500 [facility] Comment on above: Performed By: #### 2 [id number] #### [facility] [address] [place] [address] Family Medicine Office/Clini c Noteon 11-09-2023 Family Medicine [...] Iron deficiency) Mild, as reported by her agriculture worker, labs from 2022 appear normal 6. Pre-diabetes (R73.03: Prediabetes) Last A1c Continue metformin Nutrition: - Maintain optimal weight - Calorie restriction - Plant-based diet; high polyunsatur (more content not included)... Normal [facility] Comment on above: Result Comment: Elec tronically Signed By: Jayant YEBOAH, Monica Varela\.cedrick\Date and Time Signed: 11/09/23 15:56 EDT Physician Referralon 024 Physician Referral [id number] Normal [facility] Ambulatory Visit Summaryon 0 10-23-2023 [...] (Vitamin D) fluticasone nasal (Flonase 0.05 mg/inh [place]) metformin (MetFORMIN (Eqv-Glucophage XR) 500 mg oral [...] EDT With: Penelope CASAS DO, FAAFP Where: [facility] Normal [facility] Family Medicine Office/Clini c Noteon [...] Mouth: mucous membranes pink, moist and intact. [place] posterior oropharynx, no palatal inflammation, uvula midline, [...] 106.2, kg, 10/23/23 16:55:00 EDT, Weight Dosing [facility] External Ambulatory Referral 2. Nasal polyps (J33.9: Nasal polyp, unspecified) pt reported - moved before previous ENT could perform surgery - submitted new referral at this time Ordered: [facility] External Ambulatory Referral 3. Deviated septum (J34.2: Deviated nasal septum) pt reported - moved before previous ENT could perform surgery - see #2 Ordered: [facility] External Ambulatory Referral 4. BMI [...] ( (more content not included)... Normal [facility] Comment on above: Result Comment: [...] specializes in ear, nose, and throat disorders (compliance monitor, or ENT) for more tests and treatment. [...] Follow these instructions at home: ? Take [id number] and prescription medicines only as told by [...] specializes in ear, nose, and throat disorders (compliance monitor, or ENT) for more tests and treatment. This information is not intended to replace advice given to you by your health care provider. Make sure you discuss any questions you have with your health care provider. Document Revised: 12/12/2021 Document Reviewed: 12/12/2021 [employer] Patient Education ? 2022 [employer] Nasal Polyps Nasal polyps are growths [...] cancer (more content not included)... Normal [facility] CT Abdomen/Pelvis w/o Contra ston 09-29-2023 CT [...] contrast amount in ml's: 0 Normal [facility] B hCG Qualon 09-28-2023 Beta HCG ( test) Ql Negative Normal [facility] Comment on above: Performed By: #### 2 [id number] #### [facility] [address] [place] [address] BMPon 09-28-2023 Anion gap [Moles/Vol] 13 mmol/L Normal 6-16 [facility] Comment on above: Performed By: #### 2 [id number] #### [facility] [address] [place] [address] Calcium [Mass/Vol] 9.9 mg/dL Normal 8.9-11.1 [facility] Comment on above: Performed By: #### 2 095074 #### [facility] [address] [place] [address] Chloride [Moles/Vol] 101 mmol/L Normal 101-111 [facility] Comment on above: Performed By: #### 2 [id number] #### [facility] [address] [place] [address] CO2 [Moles/Vol] 25 mmol/L Normal 21-31 [facility] Comment on above: Performed By: #### 2 [id number] #### [facility] [address] [place] [address] Creatinine [Mass/Vol] 0.9 mg/dL Normal 0.5-1.3 [facility] Comment on above: Performed By: #### 2 994304 #### [facility] [address] [place] [address] Glucose [Mass/Vol] 94 mg/dL Normal 55-199 [facility] Comment on above: Performed By: #### 2 585659 #### [facility] [address] [place] [address] Potassium [Moles/Vol] 3.6 mmol/L Normal 3.5-5.3 [facility] Comment on above: Performed By: #### 2 066997 #### [facility] [address] [place] [address] Sodium [Moles/Vol] 135 mmol/L Normal 135-145 [facility] Comment on above: Performed By: #### 2 [id number] #### [facility] [address] [place] [address] Urea nitrogen [Mass/Vol] 8 mg/dL Normal 5-21 [facility] Comment on above: Performed By: #### 2 051539 #### [facility] [address] [place] [address] Urea nitrogen/Creatinine [Mass ratio] 9 No Units Low 10-20 [facility] Comment on above: Performed By: #### 2 [id number] #### [facility] [address] [place] [address] CBC w/ Auto Diffon 4 Basophils/100 WBC (Bld) 0.7 % Normal 0.0-2.0 [facility] Comment on above: Performed By: #### 2 [id number] #### [facility] [address] [place] [address] Basophils/Leukocytes Auto (Bld) [Pure # fraction] 0.1 E9/L Normal 0.0-0.2 [facility] Comment on above: Performed By: #### 2 905004 #### [facility] [address] [place] [address] Eosinophils (Bld) [#/Vol] 0.0 E9/L Normal 0.0-0.5 [facility] Comment on above: Performed By: #### 2 [id number] #### [facility] [address] [place] [address] Eosinophils/100 WBC (Bld) 0.5 % Normal 0.0-8.0 [facility] Comment on above: Performed By: #### 2 [id number] #### [facility] [address] [place] [address] Erythrocyte distribution width (RBC) [Ratio] 14.3 % High 10.9-14.2 [facility] Comment on above: Performed By: #### 2 [id number] #### [facility] [address] [place] [address] Hematocrit (Bld) [Volume fraction] 39.5 % Normal 34.0-46.0 [facility] Comment on above: Performed By: #### 2 [id number] #### [facility] [address] [place] [address] Hemoglobin (Bld) [Mass/Vol] 13.2 g/dL Normal 12.0-16.0 [facility] Comment on above: Performed By: #### 2 824635 #### [facility] [address] [place] [address] Lymphocytes (Bld) [#/Vol] 3.5 E9/L Normal 1.0-4.0 [facility] Comment on above: Performed By: #### 2 [id number] #### [facility] [address] [place] [address] Lymphocytes/100 WBC (Bld) 35.6 % Normal 14.0-50.0 [facility] Comment on above: Performed By: #### 2 [id number] #### [facility] [address] [place] [address] MCH (RBC) [Entitic mass] 29.3 pg Normal 27.0-34.0 [facility] Comment on above: Performed By: #### 2 [id number] #### [facility] [address] [place] [address] MCHC (RBC) [Mass/Vol] 33.5 g/dL Normal 31.4-36.0 [facility] Comment on above: Performed By: #### 2 [id number] #### [facility] [address] [place] [address] MCV (RBC) [Entitic vol] 87.4 fL Normal 80.0-100.0 [facility] Comment on above: Performed By: #### 2 [id number] #### [facility] [address] [place] [address] Monocytes (Bld) [#/Vol] 0.7 E9/L Normal 0.2-1.0 [facility] Comment on above: Performed By: #### 2 416365 #### [facility] [address] [place] [address] Neutrophils (Bld) [#/Vol] 5.6 E9/L Normal 2.0-7.5 [facility] Comment on above: Performed By: #### 2 250195 #### [facility] [address] [place] [address] Neutrophils/100 WBC (Bld) 56.4 % Normal 36.0-75.0 [facility] Comment on above: Performed By: #### 2 [id number] #### [facility] [address] [place] [address] Platelet mean volume (Bld) [Entitic vol] 8.1 fL Normal 6.4-10.8 [facility] Comment on above: Performed By: #### 2 [id number] #### [facility] [address] [place] [address] Platelets (Bld) [#/Vol] 360.0 E9/L Normal 150.0-500. 0 [facility] Comment on above: Performed By: #### 2 [id number] #### [facility] [address] [place] [address] RBC (Bld) [#/Vol] 4.5 E12/L Normal 4.3-5.9 [facility] Comment on above: Performed By: #### 2 [id number] #### [facility] [address] [place] [address] WBC corrected for nucl RBC Auto (Bld) [#/Vol] 9.9 E9/L Normal 4.0-11.0 [facility] Comment on above: Performed By: #### 2 [id number] #### [facility] [address] [place] [address] CHEMISTRYOrdered By: SYSTEM SYSTEM on 09-28-2023 Albumin [...] - 20 Remisol Chem Consent for Treatmenton 3 Consent for Treatment [id number] Normal [facility] Discharge Instructionson Discharge Instructions [id number] Normal [facility] ED Clinical Summaryon 2023 ED Clinical Summary (Inserted Image. Lyssa ble to display) [place] [id number] ED Clinical Summary Person Information Name: SANNA RENDON [facility] Age: 37 Years : 1985 Sex: Female Language: Anguillan PCP: Penelope CASAS DO, FAAFP Marital Status: Phone: [phone] MRN: [id number] Visit Id: Visit Reason: Medical problem - [...] 09/28/2023 21:22:15 09/28/2023 21:22:15 09/28/2023 21:22:15 ADDRESS: [facility] [phone] [facility] DOC NOTES: MEDICAL INFORMATION: Prescriptions Given: Medications to Continue with No Changes Other Medications enoxaparin (Lovenox 40 mg/0.4 mL Injection) 40 Milligram Subcutaneous every 24 hours. ergocalciferol (Vitamin D) 2,000 International unit By Mouth every week. fluticasone nasal (Flonase 0.05 mg/inh [place]) 2 Sprays Nasal Inhalation every day. each nostril. metformin (MetFORMIN (Eqv-Glucophage XR) 500 mg oral tablet, extended release) 2 Tablets By Mouth every day. PATIENT EDUCATION INFORMATION: Instructions: Abdominal Pain, Adult Follow up: With: Address: When: Penelope Conway [facility], [address] [place] [id number] Business (1) In 3 days DIAGNOSIS: 1:Abdominal pain Normal [facility] ED Note-Physicianon 09-28-19 ED Note-Physician [...] plan is discharged stable condition. Normal [facility] Comment on above: Result Comment: Elec tronically Signed By: Sidney Daly DO\.br\Date and Time Signed: 09/28/23 21:12 EDT ED Note-Physician Basic Information Time Seen: Bijan Miramontes PA-C 09/28/2023 18:46 Chief Complaint Pt woke up around 7 am and started getting a pain on R side of belly button. States feels bloated and like her abdomen is coral.Was sent here from [facility] for possible appendicitis. Nausea, denies vomiting. History [...] mL, IV, Once Home Flonase 0.05 mg/inh [place], 2 spray(s), Nasal, Daily Lovenox 40 mg/0.4 [...] qual (more content not included)... Normal [facility] Comment on above: Result Comment: [...] these instructions at home: Medicines ? Take ddei-hgd-fmhbznl and prescription medicines only as told by [...] your condition for any changes. ? Take zizq-lli-btzzspb and prescription medicines only as told by [...] Reviewed: 08/25/2019 Elsevier Patient Education ? 2022 [employer]. Normal [facility] ED Patient Summaryon 024 ED Patient Summary (Inserted Image. Lyssa ble to display) [address] [address] Patient Discharge Instructions Person Information Name: SANNA RENDON Age: 37 Years Arrival Date: 09/28/2023 18:21:25 Discharge Diagnosis: 1:Abdominal pain Primary Care Physician: Penelope CASAS DO, FAAFP Provider Information Primary Provider: Benny Uribe DO Advanced Cabinet Finisher:Bijan Miramontes PA-C The exam and treatment you [...] Follow-up Instructions: With: Address: When: Penelope CASAS [address] [place] [address], [facility] [place] [address] Business (1) In 3 days In the event that this physician does not participate in your insurance network, please consult with your insurance company to find a nearby participating provider. Patient Education Materials: Abdominal Pain, Adult A MESSAGE TO ALL PATIENTS REGARDING OPIOIDS PRESCRIPTION OPIOIDS: WHAT YOU NEED TO KNOW Prescription opioids can be used to help relieve dslnjvud-ia-ovuwcp pain and are often prescribed following a [...] be struggling with addiction, tell your health women's health care nurse practitioner and ask for guidance or call [facility]S National Helpline at 2-194-064-OTXZ. i Source: Dep (more content not included)... Normal [facility] Family Medicine Office/Clini c Noteon [...] agree with above documented HPI by medical advisor. Portions of this record may have been created with voice recognition artificial intelligence software, specifically Youku, Poppin and or [employer]. Substitutions may have occurred due to the inherent limitations of voice recognition and artificial intelligence software. Patient is a 37-year-old female who presents to [facility], for right lower quadrant pain, that [...] Repeat BP 140/90. 37-year-old female presented to [facility], for right lower quadrant abdominal pain, worsening [...] o (more content not included)... Normal [facility] Comment on above: Result Comment: [...] Albumin [Mass/Vol] 4.8 g/dL Normal 3.3-5.0 [facility] Comment on above: Performed By: #### 2 [id number] #### [facility] [address] [place] [address] Albumin/Globulin (S) [Mass conc ratio] 1.6 Normal 1.1-2.2 [facility] Comment on above: Performed By: #### 2 [id number] #### [facility] [address] [place] [address] ALP [Catalytic activity/Vol] 66 Int._Unit/L Normal 21-98 [facility] Comment on above: Performed By: #### 2 [id number] #### [facility] [address] [place] [address] ALT No additional P-5'-P [Catalytic activity/Vol] 16 Int._Unit/L Normal 6-46 [facility] Comment on above: Performed By: #### 2 [id number] #### [facility] [address] [place] [address] AST [Catalytic activity/Vol] 15 Int._Unit/L Normal 5-43 [facility] Comment on above: Performed By: #### 2 [id number] #### [facility] [address] [place] [address] Bilirubin [Mass/Vol] 0.3 mg/dL Normal 0.0-1.1 [facility] Comment on above: Performed By: #### 2 [id number] #### [facility] [address] [place] [address] Bilirubin.direct [Mass/Vol] 0.0 mg/dL Normal 0.0-0.4 [facility] Comment on above: Performed By: #### 2 [id number] #### [facility] [address] [place] [address] Bilirubin.indirect [Mass or moles/Vol] 0.3 mg/dL Normal 0.1-0.9 [facility] Comment on above: Performed By: #### 2 [id number] #### [facility] [address] [place] [address] Globulin (S) [Mass/Vol] 3.0 g/dL Normal 1.4-4.0 [facility] Comment on above: Performed By: #### 2 [id number] #### [facility] [address] [place] [address] Protein [Mass/Vol] 7.8 g/dL Normal 6.0-7.8 [facility] Comment on above: Performed By: #### 2 [id number] #### [facility] [address] [place] [address] Lipase Levelon 09-28-2023 Lipase [Catalytic activity/Vol] 26 U/L Normal 13-58 [facility] Comment on above: Performed By: #### 2 [id number] #### [facility] [address] [place] [address] Patient Educationon 09-28-19 24 Patient Education Cardiovascular [...] Keep all follow-up visits. Medicines ? Take ncmo-eon-xnhduis and prescription medicines only as told by [...] m (more content not included)... Normal [facility] RAD - Preliminary Cat Scan R eporton 09-28-2023 RAD - Preliminary Cat Scan Report [id number]#[id number] Normal [facility] SEROLOGYOrdered By: Amanda Siegel on 09-28-2023 Beta HCG ( test) Ql Negative (09/28/23 6:59 PM) Normal [facility] Man Sero UA with Cult Rflxon 09-28-19 Bilirubin Ql (U) Negative Normal Negative [facility] Comment on above: Performed By: #### 4 [id number] ####[facility] [address] [place] [address] Clarity (U) Clear Normal Clear [facility] Comment on above: Performed By: #### 4 [id number] ####[facility] [address] [place] [address] Color (U) Colorless Abnormal Yellow [facility] Comment on above: Result Comment: Micr oscopic readings are only performed on those samples that meet specific criteria set forth by [facility]. Performed By: #### 4 [id number] ####[facility] [address] [place] [address] Glucose Ql (U) Negative Normal Negative [facility] Comment on above: Performed By: #### 4 [id number] ####[facility] [address] [place] [address] Hemoglobin Auto test strip (U) [Mass/Vol] Negative Normal Negative [facility] Comment on above: Performed By: #### 4 [id number] ####[address] [address] Ketones Auto test strip Ql (U) Negative Normal Negative [facility] Comment on above: Performed By: #### 4 [id number] ####[address] [address] Leukocyte esterase Auto test strip Ql (U) Negative Normal Negative [facility] Comment on above: Performed By: #### 4 [id number] ####[address] [address] Nitrite Auto test strip Ql (U) Negative Normal Negative [facility] Comment on above: Performed By: #### 4 [id number] ####[address] [address] pH (U) 7.0 [pH] Invalid Interpretation Code 5.0-9.0 [facility] Comment on above: Performed By: #### 4 [id number] ####[address] [address] Protein Ql (U) Negative Normal Negative [facility] Comment on above: Performed By: #### 4 [id number] ####[address] [address] Specific gravity (U) [Rel density] 1.003 Invalid Interpretation Code 1.005-1.03 0 [facility] Comment on above: Performed By: #### 4 [id number] ####[address] [address] Urobilinogen (U) [Mass/Vol] Negative Normal Negative [facility] Comment on above: Performed By: #### 4 [id number] ####[address] [address] Type of Urine collection method Clean Catch Normal [facility] Comment on above: Performed By: #### 4 [id number] ####[facility] [address] [place] [id number] URINALYSISOrdered By: SYSTEM SYSTEM on 09-28-2023 Bilirubin Ql (U) Negative Normal Negativemg /dL FT UA Auto SS Clarity (U) Clear (09/28/23 7:35 PM) Normal Clear [facility] UA Auto SS Color (U) Colorless 1 *ABN* (09/28/23 7:35 PM) Invalid Interpretation Code Yellow [facility] UA Auto SS Comment on above: Interpretive Data: M icroscopic readings are only performed on those samples that meet specific criteria set forth by [facility]. Glucose Ql (U) Negative Normal Negativemg [...] Normal Negativemg /dL FT UA Auto SS pH (U) 7.0 *NA* (09/28/23 7:35 PM) Invalid Interpretation Code 5.0 - 9.0 [facility] UA Auto SS Protein Ql (U) Negative Normal Negativemg /dL [facility] UA Auto SS Specific gravity (U) [Rel density] 1.003 *NA* (09/28/23 7:35 PM) Invalid Interpretation Code 1.005 - 1.030 [facility] UA Auto SS Urobilinogen (U) [Mass/Vol] Negative Normal Negativemg /dL [facility] UA Auto SS URINALYSISOrdered By: Bijan Miramontes on 09-28-2023 UA Spec Desc Clean Catch (09/28/23 7:35 PM) Normal [facility] UA Auto SS Work Phone: eGFRon 09-28-2023 eGFR 84 mL/min/1.73 m2 Normal >=59 [facility] Comment on above: Order Comment: Order added by Discern Expert. Performed By: #### 1 [id number] #### [facility] [address] [place] [address] Ambulatory Visit Summaryon 0 08-03-2023 Ambulatory Visit [...] (Vitamin D) fluticasone nasal (Flonase 0.05 mg/inh [place]) metformin (MetFORMIN (Eqv-Glucophage XR) 500 mg oral [...] PED When: In 4 months Where: [address] [facility], [place] [address]- You Need to Complete the Following HgbA1c, [...] Unchanged fluticasone nasal (Flonase 0.05 mg/ inh [place]) 2 Sprays Nasal Inhalation Every day each [...] mile (more content not included)... Normal [facility] Family Medicine Office/Clini c Noteon 08-03-2023 [...] comfortable with plan. PNMV Ordered: A1c POC [id number] Total time spent preparing the chart, conducting [...] Other Testing: Follow-up With When Contact Information Penelpoe CASAS DO, FAAFP, FAM, PED In [address] [place] [address]- Additional Instructions: Patient Education Exercising to Lose Weight Problem Lis (more content not included)... Normal [facility] Comment on above: Result Comment: Elec tronically Signed By: Penelope CASAS DO, FAAFP\.br\Date and Time Signed: 08/03/23 12:19 EDT Patient Educationon 08-03-19 24 Patient Education Physical Medicine an d Rehabilitation [...] your health care provider or diet and youth nutritional monitor (dietitian). This may include: ? Eating fewer [...] is e (more content not included)... Normal [facility] Patient Educationon 06-21-19 Patient Education [...] in (more content not included)... Normal [facility] Lab Reportson 06-20-2023 Lab Reports [id number]#1.00TIFF [facility] Consultation Noteon 06-19-19 Consultation Note [id number]#1.00TIFF [facility] Ambulatory Visit Summaryon 0 05-25-2023 Ambulatory Visit [...] to do next Scheduled Follow-Up Appointments Sunday. 2023 1:20 PM EDT With: Penelope CASAS DO, FAAFP Where: [facility] Primary Care Normal [facility] Family Medicine Office/Clini c Noteon [...] Benadryl. 2. Dyshidrotic eczema (L30.1: Dyshidrosis [pompholyx]) Yylh-xlu-dtistvn hydrocortisone cream 1% or 2.5% as directed. [...] FAAFP, FAM, PED In 2 months [address] [facility], [place] [address]- Additional Instructions: Patient Education Eustachian Tube Dysfunction Dyshidrotic Eczema Allergies, Tadeo (more content not included)... Normal [facility] Comment on above: Result Comment: [...] ears completely after. General instructions ? Take savw-dak-fdodlyx and prescription medicines only as told by [...] w (more content not included)... Normal [facility] C Urineon 05-03-2023 Bacteria identified Cx Nom (U) Microbiology PROCEDURE: Urine Culture [R1] SOURCE: U Random BODY SITE: COLLECTED DATE/TIME: 05/01/2023 18:00 EST RECEIVED DATE/TIME: 05/01/2023 18:08 EST START DATE/TIME: 05/01/2023 18:08 EST FREE TEXT SOURCE: PRAVEEN RESENDEZ FAAFP, Penelope CASAS DO, FAAFP, Penelope Tony FINAL REPORTS Final Report [] Verified Date/Time: 05/03/2023 07:00 EST <10,000 cfu/ml Mixed skin contaminants Performing Locations R1: This test was performed at: [facility], [address] [place] [address], [facility]- , , Normal [facility] Comment on above: Performed By: #### 2 [id number] ####[address] [address] Consent for Treatmenton Consent for Treatment [id number]#1.00TIFF Normal [facility] Urinalysison 05-01-2023 Bacteria LM Ql (Urine sed) TRACE Normal Trace [facility] Comment on above: Performed By: #### 1 [id number] ####[facility] [address] [place] [address] Bilirubin Ql (U) Negative Normal Negative [facility] Comment on above: Performed By: #### 1 [id number] ####[facility] [address] [place] [address] Clarity (U) CLOUDY Abnormal Clear [facility] Comment on above: Performed By: #### 1 [id number] ####[place] [address] [place] [address] Color (U) YELLOW Normal Yellow [facility] Comment on above: Performed By: #### 1 [id number] ####[address] [address] Epithelial cells.squamous LM.HPF (Urine sed) [#/Area] /[HPF] Normal 0-2 [facility] Comment on above: Performed By: #### 1 [id number] ####[address] [address] Glucose Test strip (U) [Mass/Vol] Negative Normal Negative [facility] Comment on above: Performed By: #### 1 [id number] ####[address] [address] Hemoglobin Ql (U) Negative Normal Negative [facility] Comment on above: Performed By: #### 1 [id number] ####[address] [address] Ketones (U) [Mass/Vol] Negative Normal Negative [facility] Comment on above: Performed By: #### 1 [id number] ####[address] [address] [place].plasma/Lithiu m.RBC (Bld) [Mass ratio] 0-3 Normal 0-3 [facility] Comment on above: Performed By: #### 1 [id number] ####[address] [address] Nitrite Ql (U) Negative Normal Negative [facility] Comment on above: Performed By: #### 1 [id number] ####[address] [address] pH (U) 6.0 [pH] Invalid Interpretation Code 5.0-9.0 [facility] Comment on above: Performed By: #### 1 [id number] ####[address] [address] Protein (U) [Mass/Vol] Negative Normal Negative [facility] Comment on above: Performed By: #### 1 [id number] ####[facility] [address] [place] [address] Specific gravity (U) [Rel density] <=1.005 Invalid Interpretation Code 1.005-1.03 0 [facility] Comment on above: Performed By: #### 1 [id number] ####[facility] [address] [place] [address] Type of Urine collection method Clean Catch Normal [facility] Comment on above: Performed By: #### 1 [id number] ####[place] [address] Urobilinogen Qn (U) 0.2 {Nicole'U}/dL Normal 0.0-1.0 [facility] Comment on above: Performed By: #### 1 [id number] ####[facility] [address] [place] [address] WBC Auto Ql (U) TRACE Abnormal Negative [facility] Comment on above: Performed By: #### 1 [id number] ####[facility] [address] [place] [address] WBC LM.HPF (Urine sed) [#/Area] 0-5 Normal 0-5 [facility] Comment on above: Performed By: #### 1 [id number] ####[place] [address] Ambulatory Visit Summaryon Ambulatory Visit Summary SANNA [...] EST With: Penelope CASAS DO, FAAFP Where: [facility] Primary Care Normal [facility] CHEMISTRYOrdered By: SYSTEM SYSTEM on [...] feeding. No loss of taste nor smell. [id number] while taking Glucophage XR 500 mg p.o. [...] Push fluids and Tylenol and or ibuprofen bqix-oht-ojipdxf as directed. Patient does not appear ill [...] manag (more content not included)... Normal [facility] Comment on above: Result Comment: Elec tronically Signed By: Penelope CASAS DO, FAAFP\.cedrick\Date and Time Signed: 04/27/23 12:53 EST Patient [...] plan? Your health care provider or certified surgical assistant can help you make a plan for [...] stroke). Where to find more information ? [place] [employer]: www.diabetes.org Summary ? Exercising regularly is important for overall health, especially for people who have diabetes mellitus. ? Exercising has many health benefits. It increases muscle strength and bone density and reduces body fat and stress. It also lowers and controls blood glucose. ? Your health care provider or certified surgical assistant can help you make an activity plan [...] provider. Document Revised: 01/12/2020 Document Reviewed: 01/12/2020 [employer] Patient Education ? 2022 [employer] Preventing Hypoglycemia Hypoglycemia occurs when the level of sugar (glucose) in the blood is too low. Hypoglycemia can happen in people who do or do not have diabetes (diabetes (more content not included)... Normal [facility] TSHon 04-27-2023 TSH Qn 4.04 m[IU]/L Normal 0.34-5.60 [facility] Comment on above: Performed By: #### 2 [id number] ####[facility] [address] [place] [address] Ambulatory Visit Summaryon 1 Ambulatory Visit Summary SANNA RENDON :1985 Visit [...] Follow Up with Penelope CASAS DO, FAAFP, [facility], PED When: In 2 months Where: [address] [facility] [place] [address]- You Need to Complete the Following HgbA1c, [...] COVID-19 virus infection Vaginal alia Normal 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 She is continuing 500 mg of metformin [...] Johnson (more content not included)... Normal [facility] Comment on above: Result Comment: Elec tronically Signed By: PRAVEEN RESENDEZ FAAFP, Penelope Tony\.br\Date and Time Signed: 02/15/23 10:13 [...] cannot use soap and water, use hand lead custodian. 2. Make sure your ears are clean [...] cannot use soap and water, use hand lead custodian. Follow these instructions at home: ? Use [...] provider. Document Revised: 02/11/2020 Document Reviewed: 02/11/2020 Elsevier Patient Education ? 2022 [employer]. Infectious Disease Otitis Externa Otitis externa is [...] you start to feel better. ? Take ahaf-zoe-qamqewl and prescription medicines only as told by your doctor. ? Avoid getting water in your ears as told by your doctor. You may be told to avoid swimming or water sports for a few days. ? Keep all follow-up visits. How is this prevented? ? Keep your ears dry. Use the corner o (more content not included)... Normal [facility] Patient Educationon 12-23-19 23 Patient Education Immunology [...] these instructions at home: Medicines ? Take wpnf-ozt-pslbaer and prescription medicines only as told by [...] the National Suicide Prevention Lifeline at or 926. This is open 24 hours a day. ? Text the Crisis Text Line at 800304. Summary ? If you have fatigue, you [...] provider. Document Revised: 02/06/2022 Document Reviewed: 02/06/2022 [employer] Patient Education ? 2022 [employer] Urology Urodynamic Testing Urodynamic tests are [...] (inco (more content not included)... Normal [facility] CHEMISTRYOrdered By: SYSTEM SYSTEM on [...] 05-09-2022 BASO # 0.0 103/ul Normal 0.0-0.1 [facility] Comment on above: Performed By: #### H IV12 #### [facility] [address] [address] [address] Edward Gill Basophils/100 WBC (Bld) 0.4 % Normal 0.2-2.0 [facility] Comment on above: Performed By: #### H IV12 #### [facility] [address] [address] [address] Edward Gill EO # 0.1 103/ul Normal 0.0-0.7 [facility] Comment on above: Performed By: #### H IV12 #### [facility] [address] [address] [address] Edward Gill Eosinophils/100 WBC (Bld) 1.3 % Normal 0.9-7.0 [facility] Comment on above: Performed By: #### H IV12 #### [facility] [address] [address] [address] Edward Gill Erythrocyte distribution width (RBC) [Ratio] 16.6 % Critically high 11.0-15.0 [facility] Comment on above: Performed By: #### H IV12 #### [facility] [address] [address] [address] Edward Gill Hematocrit (Bld) [Volume fraction] 30.2 % Critically low 36.0-48.0 [facility] Comment on above: Performed By: #### H IV12 #### [facility] [address] [place] [address] Dr. Edward Gill Hemoglobin (Bld) [Mass/Vol] 10.5 g/dL Critically low 12.0-16.0 [facility] Comment on above: Performed By: #### H IV12 #### [facility] [address] [place] [address] Dr. Edward Gill IG # 0.04 10e3/ul Critically high 0.00-0.03 [facility] Comment on above: Performed By: #### H IV12 #### [facility] [address] [place] [address] Dr. Edward Gill IG % 0.4 % Normal 0.0-0.5 [facility] Comment on above: Performed By: #### H IV12 #### [facility] [address] [place] [address] Dr. Edward Gill LYMPH # 3.1 103/ul Normal 1.2-3.8 [facility] Comment on above: Performed By: #### H IV12 #### [facility] [address] [place] [address] Dr. Edward Gill Lymphocytes/100 WBC (Bld) 34.2 % Normal 20.5-60.0 [facility] Comment on above: Performed By: #### H IV12 #### [facility] [address] [place] [address] Dr. Edward Gill MANUAL DIFF REQ NO Normal [facility] Comment on above: Performed By: #### H IV12 #### [facility] [address] [place] [address] Dr. Edward Gill MCH (RBC) [Entitic mass] 30.3 pg Normal 26.7-34.0 [facility] Comment on above: Performed By: #### H IV12 #### [facility] [address] [place] [address] Dr. Edward Gill MCHC (RBC) [Mass/Vol] 34.8 g/dL Normal 29.9-35.2 [facility] Comment on above: Performed By: #### H IV12 #### [facility] [address] [place] [address] Dr. Edward Gill MCV (RBC) [Entitic vol] 87.0 fL Normal 81.0-99.0 [facility] Comment on above: Performed By: #### H IV12 #### [facility] [address] [place] [address] Dr. Edward Gill MONO # 0.7 103/ul Normal 0.3-0.8 [facility] Comment on above: Performed By: #### H IV12 #### [facility] [address] [place] [address] Dr. Edward Gill Monocytes/100 WBC (Bld) 7.5 % Normal 1.7-12.0 [facility] Comment on above: Performed By: #### H IV12 #### [facility] [address] [place] [address] Dr. Edward Gill NEUT # 5.0 103/ul Normal 1.4-6.5 [facility] Comment on above: Performed By: #### H IV12 #### [facility] [address] [place] [address] Dr. Edward Gill Neutrophils/100 WBC (Bld) 56.2 % Normal 43.0-75.0 [facility] Comment on above: Performed By: #### H IV12 #### [facility] [address] [place] [address] Dr. Edward Gill Platelet mean volume (Bld) [Entitic vol] 9.8 fL Normal 9.5-13.5 [facility] Comment on above: Performed By: #### H IV12 #### [facility] [address] [place] [address] Dr. Edward Gill PLT 238 103/ul Normal 150-450 [facility] Comment on above: Performed By: #### H IV12 #### [facility] [address] [place] [address] Dr. Edward Gill RBC 3.47 106/ul Critically low 4.20-5.40 [facility] Comment on above: Performed By: #### H IV12 #### [facility] [address] [address] [address] Edward Gill WBC 9.0 103/ul Normal 4.0-11.0 [facility] Comment on above: Performed By: #### H IV12 #### [facility] [address] [address] [address] Edward Gill SCREENon 05-09-2022 SCREEN Negative Normal [facility] Comment on above: Performed By: #### F ETSCRN #### [facility] [address] [address] [address] Edward Gill DIRECT COOMBSon 05-08-2022 DIRECT ALEJANDRA Negative Normal [facility] Comment on above: Performed By: #### D IRCMB #### [facility] [address] [place] [address] Dr. Edward Gill POINT OF CARE GLUCOSEon Glucose [Mass/Vol] 117 mg/dL Critically high 74-106 [facility] Comment on above: Performed By: #### P OCGLUC ####[facility] [address] [address]Dr. Edward Gill TYPE AND SCREENon 05-08-2022 TYPE AND SCREEN Negative Normal [facility] Comment on above: Performed By: #### T NS #### [facility] [address] [address] [address] Edward Gill CBC AUTO DIFFon 05-07-2022 BASO # 0.0 103/ul Normal 0.0-0.1 [facility] Comment on above: Performed By: #### H IV12 #### [facility] [address] [address] [address] Edward Gill Basophils/100 WBC (Bld) 0.2 % Normal 0.2-2.0 [facility] Comment on above: Performed By: #### H IV12 #### [facility] [address] [address] [address] Edward Gill EO # 0.0 103/ul Normal 0.0-0.7 [facility] Comment on above: Performed By: #### H IV12 #### [facility] [address] [place] [address] Dr. Edward Gill Eosinophils/100 WBC (Bld) 0.5 % Critically low 0.9-7.0 [facility] Comment on above: Performed By: #### H IV12 #### [facility] [address] [place] [address] Dr. Edward Gill Erythrocyte distribution width (RBC) [Ratio] 16.1 % Critically high 11.0-15.0 [facility] Comment on above: Performed By: #### H IV12 #### [facility] [address] [place] [address] Dr. Edward Gill Hematocrit (Bld) [Volume fraction] 32.1 % Critically low 36.0-48.0 [facility] Comment on above: Performed By: #### H IV12 #### [facility] [address] [place] [address] Dr. Edward Gill Hemoglobin (Bld) [Mass/Vol] 11.7 g/dL Critically low 12.0-16.0 [facility] Comment on above: Performed By: #### H IV12 #### [facility] [address] [place] [address] Dr. Edward Gill IG # 0.04 10e3/ul Critically high 0.00-0.03 [facility] Comment on above: Performed By: #### H IV12 #### [facility] [address] [place] [address] Dr. Edward Gill IG % 0.5 % Normal 0.0-0.5 [facility] Comment on above: Performed By: #### H IV12 #### [facility] [address] [place] [address] Dr. Edward Gill LYMPH # 2.4 103/ul Normal 1.2-3.8 [facility] Comment on above: Performed By: #### H IV12 #### [facility] [address] [place] [address] Dr. Edward Gill Lymphocytes/100 WBC (Bld) 27.2 % Normal 20.5-60.0 [facility] Comment on above: Performed By: #### H IV12 #### [facility] [address] [place] [address] Dr. Edward Gill MANUAL DIFF REQ NO Normal [facility] Comment on above: Performed By: #### H IV12 #### [facility] [address] [place] [address] Dr. Edward Gill MCH (RBC) [Entitic mass] 30.0 pg Normal 26.7-34.0 [facility] Comment on above: Performed By: #### H IV12 #### [facility] [address] [place] [address] Dr. Edward Gill MCHC (RBC) [Mass/Vol] 36.4 g/dL Critically high 29.9-35.2 [facility] Comment on above: Performed By: #### H IV12 #### [facility] [address] [place] [address] Dr. Edward Gill MCV (RBC) [Entitic vol] 82.3 fL Normal 81.0-99.0 [facility] Comment on above: Performed By: #### H IV12 #### [facility] [address] [place] [address] Dr. Edward Gill MONO # 0.7 103/ul Normal 0.3-0.8 [facility] Comment on above: Performed By: #### H IV12 #### [facility] [address] [place] [address] Dr. Edward Gill Monocytes/100 WBC (Bld) 7.7 % Normal 1.7-12.0 [facility] Comment on above: Performed By: #### H IV12 #### [facility] [address] [place] [address] Dr. Edward Gill NEUT # 5.5 103/ul Normal 1.4-6.5 [facility] Comment on above: Performed By: #### H IV12 #### [facility] [address] [place] [address] Dr. Edward Gill Neutrophils/100 WBC (Bld) 63.9 % Normal 43.0-75.0 [facility] Comment on above: Performed By: #### H IV12 #### [facility] [address] [place] [address] Dr. Edward Gill Platelet mean volume (Bld) [Entitic vol] 10.0 fL Normal 9.5-13.5 [facility] Comment on above: Performed By: #### H IV12 #### [facility] [address] [place] [address] Dr. Edward Gill PLT 274 103/ul Normal 150-450 [facility] Comment on above: Performed By: #### H IV12 #### [facility] [address] [place] [address] Dr. Edward Gill RBC 3.90 106/ul Critically low 4.20-5.40 [facility] Comment on above: Performed By: #### H IV12 #### [facility] [address] [place] [address] Dr. Edward Gill WBC 8.7 103/ul Normal 4.0-11.0 [facility] Comment on above: Performed By: #### H IV12 #### [facility] [address] [place] [address] Dr. Edward Gill Covid-19 PCR ([facility])on SARS-CoV-2 (COVID-19) RNA LELO+probe Ql (Unsp spec) Not detected Normal NOT DETECTED [facility] Comment on above: Result Comment: When [...] for this test is supported by the [employer] of Health and Human Service's declaration that [...] used). Performed By: #### H IV12 #### [facility] [address] [id number] Edward Gill DRUG SCREEN RAPID (URINE)on 05-07-2022 AMP Negative Normal NEGATIVE [facility] Comment on above: Performed By: #### D RUGRPD ####[facility] [address] [address]Dr. Edward Gill BAR Negative Normal NEGATIVE [facility] Comment on above: Performed By: #### D RUGRPD ####[facility] [address] [address]Dr. Edward Gill BUP Negative Normal NEGATIVE [facility] Comment on above: Performed By: #### D RUGRPD ####[facility] [address] [address]Dr. Edward Gill BZO Negative Normal NEGATIVE [facility] Comment on above: Performed By: #### D RUGRPD ####[facility] [address] [address]Dr. Edward Gill IND[place] Negative Normal NEGATIVE [facility] Comment on above: Performed By: #### D RUGRPD ####[facility] [address] [address]Dr. Edward Gill CUT-OFFS SEE BELOW Normal [facility] Comment on above: Result Comment: AMP (Amphetamine): 500ng/mL, BAR (Barbituates): 200 ng/mL, BZO (Benzodiazepines): 150 ng/mL, BUP (Buprenorphine): 10 ng/mL, INDIA (Cocaine): 150 ng/mL, mAMP (Methamphetamine): 500 ng/mL, MTD (Methadone): 200 ng/mL, OPI (Opiates): 100 ng/mL, OXY (Oxycodone): 100 ng/mL, PCP (Phencyclidine): 25 ng/mL, PPX (Propoxyphene): 300 ng/mL, THC (Cannabinoids): 50 ng/mL, TCA (Trycyclic Antidepressants): 300 ng/mL Performed By: #### D RUGRPD ####[facility] [address] [id number]. Edward Gill DRUG CUT HEADER DRUG CLASS TEST SYST EM CUT-OFF CONCENTRATIONS ARE FOLLOWS: Normal [facility] Comment on above: Performed By: #### D RUGRPD ####[facility] [address] [id number]. Edward Gill mAMP Negative Normal NEGATIVE [facility] Comment on above: Performed By: #### D RUGRPD ####[facility] [address] [address]Dr. Edward Gill MTD Negative Normal NEGATIVE [facility] Comment on above: Performed By: #### D RUGRPD ####[facility] [address] [place], [place] [address]Dr. Edward Gill OPI Negative Normal NEGATIVE [facility] Comment on above: Performed By: #### D RUGRPD ####[facility] [address] [place], [place] [address]Dr. Yihermelindo Gill OXY Negative Normal NEGATIVE [facility] Comment on above: Performed By: #### D RUGRPD ####[facility] [address] [place], [place] [address]Dr. Yihermelindo Gill PCP Negative Normal NEGATIVE [facility] Comment on above: Performed By: #### D RUGRPD ####[facility] [address] [address]Dr. Yilan Gill PPX Negative Normal NEGATIVE [facility] Comment on above: Performed By: #### D RUGRPD ####[facility] [address] [address]Dr. Alishalan Gill TCA Negative Normal NEGATIVE [facility] Comment on above: Performed By: #### D RUGRPD ####[facility] [address] [address]Dr. Edward Gill THC Negative Normal NEGATIVE [facility] Comment on above: Performed By: #### D RUGRPD ####[facility] [address] [place], [place] [address]Dr. Edward Gill US PREG BIOPHY W NON [...] by: HUMERA KIM Date: 2022-05-06 19:05 Normal [facility] US PREG BIOPHY W NON STRESSo n [...] by: ANGIE GALDAMEZ Date: 2022-05-01 16:16 Normal [facility] GROUP B STREP CULTUREon 03-31 S. agalactiae [...] R F Vancomycin =0.5 S F Normal [facility] Comment on above: Performed By: #### G BSCX ####[facility] [address] [place], [place] [address]UlLazara Gill US PREG BIOPHY W NON STRESSo [...] by: HUMERA KIM Date: 2022-04-17 17:08 Normal [facility] US PREG GROWTHon 04-17-2022 US PREG GROWTH [...] by: HUMERA KIM Date: 2022-04-17 16:49 Normal [facility] US PREG BIOPHY W NON STRESSo n [...] by: HUMERA KIM Date: 2022-04-12 08:56 Normal [facility] GLUCOSE, BLOOD (POC)on 04-05 Glucose [Mass/Vol] 106 mg/dL Abnormal 74 - 99 mg/dL [facility] US PREG BIOPHY W NON [...] HUMERA KIM Date: 2022-04-01 16:08 Normal [facility] US PREG BIOPHY W NON STRESSo [...] by: HUMERA KIM Date: 2022-03-27 08:54 Normal [facility] US PREG GROWTHon 03-17-2022 US PREG GROWTH [...] by: HUMERA KIM Date: 2022-03-17 06:04 Normal [facility] TSHon 02-25-2022 TSH 2.586 uIU/mL Normal 0.358-3.74 0 [facility] Comment on above: Performed By: #### H IV12 #### [facility] [address] [address] [address] Edward Gill TYPE AND SCREENon 02-25-2022 TYPE AND SCREEN Negative Normal [facility] Comment on above: Performed By: #### T NS #### [facility] [address] [address] [address] Edward Gill PAP ACOG PANEL 2: 30 to 65on 02-21-2022 . . Normal [facility] Comment on above: Result Comment: Perf ormed at: WB Performed By: #### 4 [id number] ####[facility] [address] [address]Dr. Edward Gill Age Gdln ACOG Testing 30-65 Normal [facility] Comment on above: Performed By: #### 4 [id number] ####[facility] [address] [address]Dr. Edward Gill DIAGNOSIS: Comment Normal [facility] Comment on above: Result Comment: NEGA TIVE FOR INTRAEPITHELIAL LESION OR MALIGNANCY. Performed at: WB Performed By: #### 4 [id number] ####[facility] [address] [address]Dr. Edward Gill HPV Aptima Negative Normal Negative [facility] Comment on above: Result Comment: This nucleic acid amplification test detects fourteen high-risk HPV types (16,18,31,33,35,39,45,51,52,56,58,59,66,68) without differentiation. Performed at: =G Performed By: #### 4 [id number] ####[facility] [address] [place], [place] [address]Dr. Edward Gill Methodology: Comment Normal [facility] Comment on above: Result Comment: This liquid based ThinPrep(R) pap test was screened with the use of an image guided system. Performed at: WB Performed By: #### 4 [id number] ####[facility] [address] [place], [place] [address]DrLazara Gill Note: Comment Normal [facility] Comment on above: Result Comment: The Pap smear is a screening test designed to aid in the detection of premalignant and malignant conditions of the uterine cervix. It is not a diagnostic procedure and should not be used as the sole means of detecting cervical cancer. Both false-positive and false-negative reports do occur. . Performed at: WB Performed By: #### 4 [id number] ####[facility] [address] [place], [place] [address]DrLazara Gill Performed by: Comment Normal [facility] Comment on above: Result Comment: Zenaida Diop, Industrial Insulator (ASCP) Performed at: WB Performed By: #### 4 [id number] ####[facility] [address] [place], [place] [address]Dr. Edward Gill Specimen adequacy: Comment Normal [facility] Comment on above: Result Comment: Sati sfactory for evaluation. No endocervical component is identified. Performed at: WB Performed By: #### 4 [id number] ####[facility] [address] [place], [place] [address]Dr. Edward Gill CHLAMYDIA/GONOCOCCUS LELO (SW AB/URINE/PAPon 02-16-2022 Chlamydia trachomatis, LELO Negative Normal Negative [facility] Comment on above: Performed By: #### C T/NGNA ####[facility] [address] [place], [place] [address]Ls. Edward Gill Neisseria gonorrhoeae, LELO Negative Normal Negative [facility] Comment on above: Performed By: #### C T/NGNA ####[facility] [address] [id number]. Edward Gill VAGINITIS/VAGINOSIS DNA PROB Norman 02-16-2022 Alia species Negative Normal Negative [facility] Comment on above: Performed By: #### V AGINT ####[facility] [address] [address]Dr. Edward Gill Gardnerella vaginalis Negative Normal Negative [facility] Comment on above: Performed By: #### V AGINT ####[facility] [address] [address]Dr. Edward Gill Trichomonas vaginalis Negative Normal Negative [facility] Comment on above: Performed By: #### V AGINT ####[facility] [address] [address]Dr. Edward Gill TSHon 01-24-2022 TSH 1.536 uIU/mL Normal 0.358-3.74 0 [facility] Comment on above: Performed By: #### T SH ####[facility] [address] [address]Dr. Edward Gill GLUCOSE - 1HRon 01-07-2022 Glucose [Mass/Vol] 160 mg/dL Critically high 74-106 T [facility] Comment on above: Performed By: #### G LU1HR ####[facility] [address] [address]Dr. Edward Gill TSHon 12-28-2021 TSH 1.899 uIU/mL Normal 0.358-3.74 0 [facility] Comment on above: Performed By: #### H IV12 #### [facility] [address] [address] [address] Edward Gill AFP, Maternalon 11-24-2021 Determined by Ultrasound Normal [facility] Comment on above: Performed By: #### A AFPM #### [address] [address] Supervisor Taping: Pancho Cano MD [address] [phone] Supervisor Taping: Zhang Bledsoe MD Due Date SEE NOTE [facility] Comment on above: Result Comment: Resu lts for Estimated Due Date: 05 13 22 Performed By: #### A AFPM #### [address] [address] Supervisor Taping: Pancho Cano MD [address] [phone] Supervisor Taping: Zhang Bledsoe MD Family History No [facility] Comment on above: Performed By: #### A AFPM #### [address] [address] Supervisor Taping: Pancho Cano MD [address] [phone] Supervisor Taping: Zhang Bledsoe MD Gestat Age (exact) 15 wks, 2 days Normal [facility] Comment on above: Performed By: #### A AFPM #### [address] [address] Supervisor Taping: Pancho Cano MD [address] [phone] Supervisor Taping: Zhnag Bledsoe MD Ins Req Matern Diab No [facility] Comment on above: Performed By: #### A AFPM #### [address] [address] Supervisor Taping: Pancho Cano MD [address] [phone] Supervisor Taping: Zhang Bledsoe MD Interpretation Screen Neg [facility] Comment on above: Result Comment: (NOT E) INTERPRETATION: SCREEN NEGATIVE for open spina bifida Neural Tube Defects (NTD) Negative Pre-Test Post-Test Cutoff Neural Tube Defects Risks 1:1030 1:2690 1:250 Comments: The risk of an open neural tube defect is less than the screening cut-off. This test was developed and its performance characteristics determined by [employer]. It has not been cleared or approved by the [place] Food and Drug Administration. This test was performed in a CLIA certified laboratory and is intended for clinical purposes. Performed By: #### A AFPM #### [address] [address] Supervisor Taping: Pancho Cano MD [address] [phone] Supervisor Taping: Zhang Bledsoe MD [age] [facility] Comment on above: Performed By: #### A AFPM #### [address] [address] Supervisor Taping: Pancho Cano MD [address] [phone] Supervisor Taping: Zhang Bledsoe MD Maternal Race Nonblack [facility] Comment on above: Performed By: #### A AFPM #### [address] [address] Supervisor Taping: Pancho Cano MD [address] [phone] Supervisor Taping: Zhang Bledsoe MD Maternal Weight 228.0 lbs. [facility] Comment on above: Performed By: #### A AFPM #### [address] [address] Supervisor Taping: Pancho Cano MD [facility] [address] [place] [phone] Supervisor Taping: Zhang Bledsoe MD MoM for AFP 1.52 [facility] Comment on above: Performed By: #### A AFPM #### [address] [address] Supervisor Taping: Pancho Cnao MD 09 [address] [address] Supervisor Taping: Zhang Bledsoe MD Number of Fetuses Joe Normal [facility] Comment on above: Performed By: #### A AFPM #### [address] [address] Supervisor Taping: Pancho Cano MD [address] [address] Supervisor Taping: Zhang Bledsoe MD Patient's AFP 35 ng/mL Normal [facility] Comment on above: Performed By: #### A AFPM #### [address] [address] Supervisor Taping: Pancho Cano MD [address] [address] Supervisor Taping: Zhang Bledsoe MD Smoking No Normal [facility] Comment on above: Performed By: #### A AFPM #### [address] [address] Supervisor Taping: Panhco Cano MD [address] [phone] Supervisor Taping: Zhang Bledsoe MD Specimen See Note Normal [facility] Comment on above: Result Comment: (NOT E) Initial sample Performed by [facility], [address] [place] [address] www.[employer], Yayo Moncada MD, PHD, Lab. Director Performed By: #### A AFPM #### [address] [address] Supervisor Taping: Pancho Cano MD [facility] [employer] [address] [place] [address] Supervisor Taping: Zhang Bledsoe MD AFP, Maternalon 11-22-2021 Current Smoking NO [facility] Comment on above: Performed By: #### A AFPM #### [address] [address] Supervisor Taping: Pancho Cano MD [facility] [address] [place] [address] Supervisor Taping: Zhang Bledsoe MD Dating US [facility] Comment on above: Performed By: #### A AFPM #### [address] [address] Supervisor Taping: Pancho Cano MD [address] [phone] Supervisor Taping: Zhang Bledsoe MD Diabetic NO [facility] Comment on above: Performed By: #### A AFPM #### [address] [address] Supervisor Taping: Pancho Cano MD [address] [phone] Supervisor Taping: Zhang Bledsoe MD Donor Egg INFORMATION NOT PROVIDED [facility] Comment on above: Performed By: #### A AFPM #### [address] [address] Supervisor Taping: Pancho Cano MD [facility] [address] [place] [address] Supervisor Taping: Zhang Bledsoe MD Estimated Due Date [id number] [facility] Comment on above: Performed By: #### A AFPM #### [address] [address] Supervisor Taping: Pancho Cano MD [facility] [address] [place] [address] Supervisor Taping: Zhang Bledsoe MD Family History Negative [facility] Comment on above: Performed By: #### A AFPM #### [address] [address] Supervisor Taping: Pancho Cano MD [facility] [address] [place] [address] Supervisor Taping: Zhang Bledsoe MD In Vitro Fertalizat INFORMATION NOT PROVIDED [facility] Comment on above: Performed By: #### A AFPM #### [address] [address] Supervisor Taping: Pancho Cano MD [address] [address] Supervisor Taping: Zhang Bledsoe MD LMP date [id number] [facility] Comment on above: Performed By: #### A AFPM #### [address] [address] Supervisor Taping: Pancho Cano MD [facility] [address] [place] [address] Supervisor Taping: Zhang Bledsoe MD Maternal date [facility] Comment on above: Performed By: #### A AFPM #### [address] [address] Supervisor Taping: Pancho Cano MD [facility] Laboratories [address] [place] [address] Supervisor Taping: Zhang Bledsoe MD Maternal Weight 228 [facility] Comment on above: Performed By: #### A AFPM #### [address] [address] Supervisor Taping: Pancho Cano MD [facility] [address] [place] [address] Supervisor Taping: Zhang Bledsoe MD Monochorionic Twins NO [facility] Comment on above: Performed By: #### A AFPM #### [address] [address] Supervisor Taping: Pancho Cano MD [facility] [address] [place] [address] Supervisor Taping: Zhang Bledsoe MD Patient Weight Units LBS Normal [facility] Comment on above: Performed By: #### A AFPM #### [address] [address] Supervisor Taping: Pancho Cano MD [facility] [address] [place] [address] Supervisor Taping: Zhang Bledsoe MD Race (Maternal) WHITE Normal [facility] Comment on above: Performed By: #### A AFPM #### [address] [address] Supervisor Taping: Pancho Cano MD [address] [address] Supervisor Taping: Zhang Bledsoe MD Repeat Specimen INFORMATION NOT PROVIDED Normal [facility] Comment on above: Performed By: #### A AFPM #### [address] [address] Supervisor Taping: Pancho Cano MD [address] [address] Supervisor Taping: Zhang Bledsoe MD Valproic/Carbamazep INFORMATION NOT PROVIDED [facility] Comment on above: Performed By: #### A AFPM #### [address] [address] Supervisor Taping: Pancho Cano MD [facility] [address] [place] [address] Supervisor Taping: Zhang Bledsoe MD AFP Single Marker Scrn, Mate rnal, Serumon 11-21-2021 [facility] Carrier Study Non-ProMedicao n 11-21-2021 [facility] MISCELLANEOUS TESTINGon 10-29 Send Out Report FWD TO HORIZON TRK [phone] [facility] Test Name DILLON MCDOWELL S [facility] Miscellaneouson 11-21-2021 Send Out Report FWD TO HORIZON TRK [phone] Normal [facility] Comment on above: Performed By: #### C MIS #### [facility] [address] [place], [place] [id number] Supervisor Taping: Pancho Cano MD Test Name [facility] Normal [facility] Comment on above: Performed By: #### C MIS #### [facility] [address] [place], [place] [id number] Supervisor Taping: Pancho Cano MD HEP B SURFACE ANTIGEN SCREEN on 10-26-2021 HBsAg Screen Negative Normal Negative [facility] Comment on above: Performed By: #### H IV12 #### [facility] [address] [place], [place] [address] Dr. Edward Gill HEPATITIS C VIRUS AB W/ REFL EX QUANTon 10-26-2021 HCV AB <0.1 Normal 0.0-0.9 [facility] Comment on above: Performed By: #### H CVPCRR ####[facility] [address] [place], [place] [address]YbDr. Edward Gill Interpretation: Comment Normal [facility] Comment on above: Result Comment: Nega tive Not infected with HCV, unless recent infection is suspected or other evidence exists to indicate HCV infection. Performed By: #### H CVPCRR ####[facility] [address] [place], [place] [address]MlDr. Edward Gill HIV 1 AND 2 WITH REFLEXon HIV Screen 4th Generation wRfx Non-Reactive Normal Non Reactive [facility] Comment on above: Result Comment: HIV Negative HIV-1/HIV-2 antibodies and HIV-1 p24 antigen were NOT detected. There is no laboratory evidence of HIV infection. Performed By: #### H IV12 #### [facility] [address] [place] [address] Dr. Edward Gill RPR QUANTon 10-26-2021 Rapid Plasma Reagin, Quant Non-Reactive Normal NonRea<1:1 [facility] Comment on above: Result Comment: Plea se Note: This test does not meet current guidelines for screening and diagnosis of syphilis. This test is intended for following treatment response in patients being treated for syphilis infection. To screen for syphilis infection, a reflex cascade that includes both RPR and a treponema-specific assay should be utilized, such as Treponema pallidum (Syphilis) Screening [place] (631894) or Rapid Plasma Reagin (RPR) Test With Reflex to Quantitative RPR and Confirmatory Treponema pallidum Antibodies (680254). Performed By: #### R PRQ ####[facility] [address] [place], [place] [address]Dr. Edward Gill RUBELLA AB IGGon 10-26-2021 Rubella Antibodies, IgG 1.02 index Normal Immune >0.99 [facility] Comment on above: Result Comment: Non- immune <0.90 Equivocal 0.90 - 0.99 Immune >0.99 Performed By: #### R UBIGG ####[facility] [address] [place], [place] [address]Dr. Edward Gill CBC AUTO DIFFon 10-25-2021 BASO # 0.0 103/ul Normal 0.0-0.1 [facility] Comment on above: Performed By: #### H IV12 #### [facility] [address] [place] [address] Dr. Edward Gill Basophils/100 WBC (Bld) 0.3 % Normal 0.2-2.0 [facility] Comment on above: Performed By: #### H IV12 #### [facility] [address] [place] [address] Dr. Edward Gill EO # 0.1 103/ul Normal 0.0-0.7 [facility] Comment on above: Performed By: #### H IV12 #### [facility] [address] [place] [address] Dr. Edward Gill Eosinophils/100 WBC (Bld) 0.6 % Critically low 0.9-7.0 [facility] Comment on above: Performed By: #### H IV12 #### [facility] [address] [place] [address] Dr. Edward Gill Erythrocyte distribution width (RBC) [Ratio] 14.1 % Normal 11.0-15.0 [facility] Comment on above: Performed By: #### H IV12 #### [facility] [address] [place] [address] Dr. Edward Gill Hematocrit (Bld) [Volume fraction] 36.2 % Normal 36.0-48.0 [facility] Comment on above: Performed By: #### H IV12 #### [facility] [address] [place] [address] Dr. Edward Gill Hemoglobin (Bld) [Mass/Vol] 12.5 g/dL Normal 12.0-16.0 [facility] Comment on above: Performed By: #### H IV12 #### [facility] [address] [place] [address] Dr. Edward Gill IG # 0.05 10e3/ul Critically high 0.00-0.03 [facility] Comment on above: Performed By: #### H IV12 #### [facility] [address] [place] [address] Dr. Edward Gill IG % 0.4 % Normal 0.0-0.5 [facility] Comment on above: Performed By: #### H IV12 #### [facility] [address] [place] [address] Dr. Edward Gill LYMPH # 2.7 103/ul Normal 1.2-3.8 [facility] Comment on above: Performed By: #### H IV12 #### [facility] [address] [place] [address] Dr. Edward Gill Lymphocytes/100 WBC (Bld) 23.2 % Normal 20.5-60.0 [facility] Comment on above: Performed By: #### H IV12 #### [facility] [address] [place] [address] Dr. Edward Gill MANUAL DIFF REQ NO Normal [facility] Comment on above: Performed By: #### H IV12 #### [facility] [address] [place] [address] Dr. Edward Gill MCH (RBC) [Entitic mass] 30.6 pg Normal 26.7-34.0 [facility] Comment on above: Performed By: #### H IV12 #### [facility] [address] [place] [address] Dr. Edward Gill MCHC (RBC) [Mass/Vol] 34.5 g/dL Normal 29.9-35.2 [facility] Comment on above: Performed By: #### H IV12 #### [facility] [address] [place] [address] Dr. Edward Gill MCV (RBC) [Entitic vol] 88.7 fL Normal 81.0-99.0 [facility] Comment on above: Performed By: #### H IV12 #### [facility] [address] [place] [address] Dr. Edward Gill MONO # 0.7 103/ul Normal 0.3-0.8 [facility] Comment on above: Performed By: #### H IV12 #### [facility] [address] [place] [address] Dr. Edward Gill Monocytes/100 WBC (Bld) 5.8 % Normal 1.7-12.0 [facility] Comment on above: Performed By: #### H IV12 #### [facility] [address] [place] [address] Dr. Edward Gill NEUT # 8.0 103/ul Critically high 1.4-6.5 [facility] Comment on above: Performed By: #### H IV12 #### [facility] [address] [place] [address] Dr. Edward Gill Neutrophils/100 WBC (Bld) 69.7 % Normal 43.0-75.0 [facility] Comment on above: Performed By: #### H IV12 #### [facility] [address] [place] [address] Dr. Edward Gill Platelet mean volume (Bld) [Entitic vol] 9.3 fL Critically low 9.5-13.5 [facility] Comment on above: Performed By: #### H IV12 #### [facility] [address] [place] [address] Dr. Edward Gill PLT 338 103/ul Normal 150-450 [facility] Comment on above: Performed By: #### H IV12 #### [facility] [address] [place] [address] Dr. Edward Gill RBC 4.08 106/ul Critically low 4.20-5.40 [facility] Comment on above: Performed By: #### H IV12 #### [facility] [address] [place] [address] Dr. Edward Gill WBC 11.4 103/ul Critically high 4.0-11.0 [facility] Comment on above: Performed By: #### H IV12 #### [facility] [address] [place] [address] Dr. Edward Gill CULTURE URINEon 10-25-2021 CULTURE URINE Culture Observations : LIGHT GROWTH OF MIXED GENITAL MARTHA. NO POTENTIAL PATHOGENS SEEN. Normal [facility] Comment on above: Performed By: #### U RCX #### [facility] [address] [place] [address] Dr. Edward Gill GLYCOHEMOGLOBIN A1Con 2021 ADA RECOMMENDATION SEE BELOW Normal [facility] Comment on above: Result Comment: ADA RECOMMENDED LIMIT 4.0 - 6.0 ADA THERAPEUTIC TARGET < 7.0 ACTION SUGGESTED > 7.0 Performed By: #### A 1C #### [facility] [address] [place] [address] Dr. Edward Gill Glucose [Mass/Vol] 117 mg/dL Normal [facility] Comment on above: Performed By: #### A 1C #### [facility] [address] [place] [address] Dr. Edward Gill HbA1c (Bld) [Mass fraction] 5.7 % Normal 4.5-6.2 [facility] Comment on above: Performed By: #### A 1C #### [facility] [address] [place] [address] [address] Edward Gill DILLON BOX TEST PT SEND OUTo n 10-25-2021 SENT TO REF LAB 10/25/2021 Normal [facility] Comment on above: Performed By: #### H IV12 #### [facility] [address] [place] [address] [address] Edward Gill TSHon 10-25-2021 TSH 1.700 uIU/mL Normal 0.358-3.74 0 [facility] Comment on above: Performed By: #### T SH ####[facility] [address] [address]Dr. Edward Gill TYPE AND SCREENon 10-25-2021 TYPE AND SCREEN Negative Normal [facility] Comment on above: Performed By: #### T NS ####[facility] [address] [address]Dr. Edward Gill US PREG TVon 09-23-2021 US [...] HUMERA KIM Date: 2021-09-23 10:27 Normal [facility] PREG QUANT HCGon 09-01-2021 HCG QUANT 1242 mIU/mL Normal [facility] Comment on above: Performed By: #### H IV12 #### [facility] [address] [place] [address] Dr. Edward Gill HCG RANGE SEE BELOW Normal [facility] Comment on above: Result Comment: 5-50 0-1 WEEK 40-300 1-2 WEEKS 100-1,000 2-3 WEEKS 500-6,000 3-4 WEEKS 5,000-200,000 1-2 MONTHS 10,000-100,000 2-3 MONTHS 3,000-50,000 2ND TRIMESTER 1,000-50,000 3RD TRIMESTER Performed By: #### H IV12 #### [facility] [address] [place] [address] [address] Edward Gill CHEMISTRYOrdered By: SYSTEM SYSTEM [...] rate/Area] mL/min/1.73 m2 Normal >=59mL/min /1.73 m2 [facility] Chem S GFR/1.73 sq M.predicted among non-blacks MDRD (S/P/Bld) [Vol rate/Area] mL/min/1.73 m2 Normal >=59mL/min /1.73 m2 [facility] Chem S Glucose [Mass/Vol] 85 [...] 367.0 E9/L Normal 150.0 - 500.0 E9/L [facility]eAutoSS RBC (Bld) [#/Vol] 4.2 E12/L Low 4.3 - 5.9 E12/L [facility] HemeAutoSS WBC corrected for nucl RBC Auto (Bld) [#/Vol] 7.9 E9/L Normal 4.0 - 11.0 E9/L [facility]eAutoSS PREG QUANT HCGon 08-29-2021 HCG QUANT 374 mIU/mL Normal [facility] Comment on above: Performed By: #### P REGQNT ####[facility] [address] [place] [address]Dr. Edward Gill HCG RANGE SEE BELOW Normal [facility] Comment on above: Result Comment: 5-50 0-1 WEEK 40-300 1-2 WEEKS 100-1,000 2-3 WEEKS 500-6,000 3-4 WEEKS 5,000-200,000 1-2 MONTHS 10,000-100,000 2-3 MONTHS 3,000-50,000 2ND TRIMESTER 1,000-50,000 3RD TRIMESTER Performed By: #### P REGQNT ####[facility] [address] [place], [place] [address]Dr. Edward Gill PREG QUANT HCGon 08-26-2021 HCG QUANT 99 mIU/mL Normal [facility] Comment on above: Performed By: #### H IV12 #### [facility] [address] [place] [address] Dr. Edward Gill HCG RANGE SEE BELOW Normal [facility] Comment on above: Result Comment: 5-50 0-1 WEEK 40-300 1-2 WEEKS 100-1,000 2-3 WEEKS 500-6,000 3-4 WEEKS 5,000-200,000 1-2 MONTHS 10,000-100,000 2-3 MONTHS 3,000-50,000 2ND TRIMESTER 1,000-50,000 3RD TRIMESTER Performed By: #### H IV12 #### [facility] [address] [place] [address] Dr. Edward Gill PREG QUANT HCGon 08-24-2021 HCG QUANT 37 mIU/mL Normal [facility] Comment on above: Performed By: #### P REGQNT ####[facility] [address] [place], [place] [address]ZxLazara Gill HCG RANGE SEE BELOW Normal [facility] Comment on above: Result Comment: 5-50 0-1 WEEK 40-300 1-2 WEEKS 100-1,000 2-3 WEEKS 500-6,000 3-4 WEEKS 5,000-200,000 1-2 MONTHS 10,000-100,000 2-3 MONTHS 3,000-50,000 2ND TRIMESTER 1,000-50,000 3RD TRIMESTER Performed By: #### P REGQNT ####[facility] [address] [place], [place] [address]SxLazara Gill CHEMISTRYOrdered By: SYSTEM SYSTEM on 08-19-2021 [...] Normal 4.0 - 11.0 E9/L [facility] HemeAutoSS BROADCAST TECHNICIAN - Office Visiton 07- BROADCAST TECHNICIAN - Office Visit Chief ComplaintCom plains of: heavy bleeding Declines e marketing specialist, Susie Salomon CMA History of Present IllnessSanna is a 32yo [...] stroke 07/2017 PSH as above POB- 2007 [id number] 17week loss subchorionic [id number] 39weeks bleeding at 5weeks for 2 weeks diet [id number] calories exercise none 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 [...] History History of Oral Surgery Tooth Extraction [place] Tooth Family History No pertinent family history Family history of cerebrovascular accident (CVA) (V17.1) (Z82.3) Family history of diabetes mellitus (V18.0) (Z83.3) Family history of cerebrovascular accident (CVA) (V17.1) (Z82.3) Family history of cerebrovascular accident (CVA) (V17.1) (Z82.3) Allergies No Known Drug Allergies Recorded By: Susie Salomon; 11/08/2017 4:19:42 PM Current Meds Ciprofloxacin HCl - 500 MG Oral Tablet;Therapy: [id number] to Recorded Dispense: 0 Days ; #: Sufficient Tablet; Refill: 0; BUBBA = N; Record; Last Updated By: Susie Salomon; 11/08/2017 4:19:42 PM Plavix 75 MG Oral Tablet;Therapy: 38Vjy7024 to Recorded Dispense: 0 Days ; #: Sufficient Tablet; Refill: 0; BUBBA = N; Record; Last Updated By: Susie Salomon; 11/08/2017 4:19:42 PM Provera 10 MG Oral Tablet;Therapy: 55Hdf2102 to Recorded Dispense: 0 Days ; #: Sufficient Tablet; Refill: 0; BUBBA = N; Record; Last Updated By: Susie Salomon; 11/08/2017 4:19:42 PM Vitals Vital Signs Recorded: 08Nov2017 04:85EMLgyptkdb602Qrayimcir 55Kdhpdi3 ft 6 bgNniakc944 lb BMI Ligbkhlxlw93.57BSA Calculated1.1SJB59Mnq3642Wt in Scale6-7 Physical ExamConstitutional: Alert and in no acute distress. Well developed, well nourished. Head and Face: Head and face: Normal. Psychiatric: Alert and oriented x 3. Affect normal to patient baseline. Mood: Appropriate. Diagnoses/Problems Anemia (285.9) (D64.9) Asthma (493.90) (J45.909) Depression with anxiety (300.4) (F41.8) History of Oral Surgery Tooth Extraction [place] No pertinent family history : Mother [...] GIDeclines STI testing todayWeight gain, offered a business development professional consult and she declined. Encouraged exercise. Signatures Electronically signed by : RICHARD Ulrich; Nov 12 2017 8:46PM EST (Author) Normal [facility] Antiphospholipid Abs IgG/IgM on 05-29-2017 Antiphospholipid Ab-IgG 196 GPL Critically high 0-14 [facility] Comment on above: Result Comment: INTE RPRETIVE INFORMATION: High-Specificity Antiphospholipid Antibody,IgG14 GPL or less......Bweaxcvx04 26 GPL.........Indeterminate Suggest repeat testing in 12 weeks27 GPL or greater...PositiveHigh-specificity antiphospholipid IgG and IgM antibodies are directedagainsta mixture of phosphatidylserine, phosphatidic acid, and beta-2glycoprotein 1antigens. These antibodies are more specific than cardiolipin IgG andIgMantibodies in the diagnosis of antiphospholipid syndrome (APS). Antiphospholipid Ab-IgM 6 MPL Normal 0-14 [facility] Comment on above: Result Comment: INTE RPRETIVE INFORMATION: High-Specificity Antiphospholipid Antibody,IgM14 MPL or less......Fompmpsj34 37 MPL.........Indeterminate Suggest repeat testing in 12 weeks38 MPL or greater...PositiveHigh-specificity antiphospholipid IgG and IgM antibodies are directedagainsta mixture of phosphatidylserine, phosphatidic acid, and beta-2glycoprotein 1antigens. These antibodies are more specific than cardiolipin IgG andIgMantibodies in the diagnosis of antiphospholipid syndrome (APS).Performed by [facility],[address] [place] [id number] zvc.[employer], Zhang Bledsoe MD - Lab. Director RONA Miscellaneous test 1on 05-28-2017 Miscellaneous Test 1 SEE NOTE Normal [facility] Comment on above: Result Comment: Test name [...] Additional information and recommendations for testingmay befound [email or web address].Performed by [facility],[address] [facility] [place] [address] orx.[employer], Zhang Bledsoe MD - Lab. Director Cardiolipin Antibodies, IgA, IgG, IgMon 05-28-2017 Cardiolipin Ab IgA 0 APL Normal 0-[address] [facility] Comment on above: Result Comment: INTE RPRETIVE INFORMATION: Cardiolipin Antibodies, IgA0-11 APL: Gtzexnwm82-29 APL: Tsvdwluotwrdv51-64 APL: Low to Moderately Hygpqgvu73 APL or above: High PositivePerformed by [facility],[address] [facility] [place] [address] qjf.[employer], Zhang Bledsoe MD - Lab. Director Cardiolipin Ab IgG 111 GPL Critically high 0-14 [facility] Comment on above: Result Comment: INTE RPRETIVE INFORMATION: Anti-Cardiolipin IgG Ab0-14 GPL: Iogndiap53-50 GPL: Jbnhllotvhssn61-90 GPL: Low to Moderately Gmdybzio86 GPL or above: High PositiveThe persistent presence [...] Cardiolipin Ab IgM 10 MPL Normal 0-[address] [facility] Comment on above: Result Comment: INTE RPRETIVE INFORMATION: Anti-Cardiolipin IgM0-12 MPL: Rrprdooq98-44 MPL: Futjxgtayckul68-91 MPL: Low to Moderately Xwyihvnk77 MPL or above: High PositiveThe persistent presence [...] Simpson Virus by PCR Not Detected Normal [facility] Comment on above: Result Comment: NOT DETECTED - A negative result does not rule out thepresence of PCR inhibitors in the patient specimen or assayspecific nucleic acid in concentrations below the level ofdetection by the assay.INTERPRETIVE INFORMATION: Jennifer Simpson Virus by PCRTest developed and characteristics determined by [facility]. SeeCompliance Statement A: [employer]/CSPerformed by [facility],[address] [facility] [place] [address] ayu.[employer], Zhang Bledsoe MD - Lab. Director Jennifer Simpson Virus Source CSF Normal [facility] Oligoclonal Band Profileon 0 05-28-2017 Albumin 3840 mg/dL Normal [id number] [facility] Albumin 5.2 ratio Normal 0.0-9.[address] [facility] Albumin, CSF 20 mg/dL Normal 0-35 [facility] CSF IgG Synthesis Rate <0.0 Normal <=8.[address] [facility] CSF Oligoclonal Bands Negative Normal Negative [facility] [facility] CSF Oligoclonal Bands Number 0 Bands Normal 0-[address] [facility] Globulin 1060 mg/dL Normal [id number] [facility] Comment on above: Result Comment: REFE RENCE INTERVAL: Immunoglobulin GAccess complete set of age- and/or gender-specific reference intervalsforthis test in the [facility] Test Directory ([facility]). IgG Index 0.45 ratio Normal 0.28-0.66 [facility] Immunoglobulin G CSF 2.5 mg/dL Normal 0.0-6.0 [facility] INR Coag RelTime (Bld) 0.12 {INR} Normal 0.09-0.25 [facility] Interpretation See Note Normal [facility] Comment on above: Result Comment: Isoe lectric focusing/immunofixation reveals no oligoclonal bands ineitherthe CSF or the serum. This is considered to be a negative result foroligoclonal bands. Approximately 5 percent of patients with clinicallydefinitive multiple sclerosis will have a negative result.Performed by [employer],[address] [facility] [place] [address] [email or web address], Zhang Bledsoe MD - Lab. Director Myelin Basic Protein, CSFon 05-27-2017 Myelin Basic Protein 1.82 ng/mL Normal 0.00-5.50 [facility] Comment on above: Result Comment: INTE RPRETIVE INFORMATION: Myelin Basic ProteinTest developed and characteristics determined by [employer]. SeeCompliance Statement D: [facility]/CSPerformed by [employer],[address], [facility] [place] [address] [email or web address], Zhang Bledsoe MD - Lab. Director WADirectLaw Miscellaneous test 1on 05-26-2017 Whopper Prompt [id number] Normal [facility] Comment on above: Result Comment: Fuentes ected result; [place] [id number] on 05/25/2017 at 13:14 by V/AUT Ocisioncellaneous test 1on 05-25-2017 Whopper Prompt [id number] Normal [facility] Comment on above: Result Comment: DS D NA CSF Cell Counton 05-25-2017 CSF no diff see below Normal [facility] Comment on above: Result Comment: Diff erential not performed -Total Nucleated cells CSF Appearance Clear Normal [facility] CSF Color Colorless Normal [facility] CSF Tube Number Tube 4 Normal [facility] Fluid Clot Evaluation see below Normal [facility] Comment on above: Result Comment: No C lots Seen Total Nucleated Cells 0 K/uL Normal 0-8 [facility] Total Red Blood Cells 0 K/uL Normal [facility] CSF Glucoseon 05-25-2017 CSF Glucose 54 mg/dL Normal 50-70 [facility] CSF Proteinon 05-25-2017 CSF Protein 41 mg/dL Normal 15-[address] [facility] Creatine Kinaseon 05-25-2017 Creatine kinase (CK) 71 U/L Normal 0-170 [facility] Culture, CSFon 05-25-2017 Culture, CSF OR DERED BY: VERNA MONGE: CSF (Spinal Fluid) CSF COLLECTED: 05/25/17 13:25ANTIBIOTICS AT AMARILYS.: RECEIVED : 05/25/17 13:25Gram Stain Direct FINAL 05/25/17 15:30 No WBC's, No organisms seenCulture, CSF FINAL 05/28/17 09:04 No growth at 72 hours Normal [facility] FL LUMBAR PUNCTURE DIAGon FL [...] by:NIKITA Mezaigned by:Humera Covarrubias MD05/25/17inal result Normal [facility] Homocysteineon 05-25-2017 Homocysteine 9.1 umol/L Normal 0.0-15.[address] [facility] Partial Thromboplastin Timeo n 05-25-2017 aPTT 31.7 s Normal 21.6-35.[address] [facility] Comment on above: Result Comment: Hepa rin Therapeutic Range: 38.8 - 54.6 seconds. Prothrombin Timeon 8 INR Coag RelTime (PPP) 1.0 {INR} Normal [facility] Comment on above: Result Comment: [...] Coag time (PPP) 10.7 s Normal 8.1-13.[address] [facility] Vital Signs Date Time Vital Sign Value Performing Clinician Inocente[facility] pro 02-09-2025 10:45-0400 Body mass index (BMI) [Ratio] 34.12 kg/m2 Wilton Montez DO Work Phone: [facility] 02-09-2025 10:45-0400 Body weight 95.89 kg Wilton Montez DO Work Phone: [facility] 02-09-2025 10:45-0400 Diastolic blood pressure 76 mm[Hg] Wilton Montez DO Work Phone: [facility] 02-09-2025 10:45-0400 Systolic blood pressure 124 mm[Hg] Wilton Montez DO Work Phone: [facility] 01-19-2025 09:30-0400 Body mass index (BMI) [Ratio] 34.14 kg/m2 Wilton Montez DO Work Phone: [facility] 01-19-2025 09:30-0400 Body weight 95.94 kg Wilton Montez DO Work Phone: [facility] 01-19-2025 09:30-0400 Diastolic blood pressure 70 mm[Hg] Wilton Montez DO Work Phone: [facility] 01-19-2025 09:30-0400 Systolic blood pressure 124 mm[Hg] Wilton Montez DO Work Phone: [facility] 01-05-2025 15:14-0400 Body mass index (BMI) [Ratio] 33.73 kg/m2 Wilton Montez DO Work Phone: [facility] 01-05-2025 15:14-0400 Body weight 94.8 kg Wilton Montez DO Work Phone: [facility] 01-05-2025 15:14-0400 Diastolic blood pressure 74 mm[Hg] Wilton Montez DO Work Phone: [facility] 01-05-2025 15:14-0400 Systolic blood pressure 122 mm[Hg] Wilton Montez DO Work Phone: [facility] 01-01-2025 14:22-0400 Body mass index (BMI) [Ratio] 33.89 kg/m2 Mukul Noyola MD Work Phone: [facility] 01-01-2025 14:22-0400 Body weight 95.25 kg Mukul Noyola MD Work Phone: [facility] 01-01-2025 14:22-0400 Diastolic blood pressure 70 mm[Hg] Mukul Noyola MD Work Phone: [facility] 01-01-2025 14:22-0400 Systolic blood pressure 114 mm[Hg] Mukul Noyola MD Work Phone: [facility] 12-23-2024 11:34-0400 Body height 167.7 cm Katherine Negrete APRN.BILINGUAL INTERPRETER Work Phone: [facility] 12-23-2024 11:34-0400 Body mass index (BMI) [Ratio] 33.57 kg/m2 Katherine Negrete APRN.BILINGUAL INTERPRETER Work Phone: [facility] 12-23-2024 11:34-0400 Body temperature 97.59 [degF] Katherine Negrete APRN.BILINGUAL INTERPRETER Work Phone: [facility] 12-23-2024 11:34-0400 Body weight 94.4 kg Katherine Negrete APRN.BILINGUAL INTERPRETER Work Phone: [facility] 12-23-2024 11:34-0400 Diastolic blood pressure 69 mm[Hg] Katherine Negrete APRN.BILINGUAL INTERPRETER Work Phone: [facility] 12-23-2024 11:34-0400 Heart rate 80 /min Katherine Negrete APRN.BILINGUAL INTERPRETER Work Phone: [facility] 12-23-2024 11:34-0400 Respiratory rate 16 /min Katherine Negrete APRN.BILINGUAL INTERPRETER Work Phone: [facility] 12-23-2024 11:34-0400 SaO2% (BldA) [Mass fraction] 98 % Katherine Negrete APRN.BILINGUAL INTERPRETER Work Phone: [facility] 12-23-2024 11:34-0400 Systolic blood pressure 103 mm[Hg] Katherine Negrete APRN.BILINGUAL INTERPRETER Work Phone: [facility] 12-11-2024 09:28-0400 Body mass index (BMI) [Ratio] 33.41 kg/m2 Wilton Montez DO Work Phone: [facility] 12-11-2024 09:28-0400 Body weight 93.89 kg Wilton Montez DO Work Phone: [facility] 12-11-2024 09:28-0400 Diastolic blood pressure 70 mm[Hg] Wilton Montez DO Work Phone: [facility] 12-11-2024 09:28-0400 Systolic blood pressure 120 mm[Hg] Wilton Montez DO Work Phone: [facility] 11-20-2024 10:53-0400 Body mass index (BMI) [Ratio] 33.57 kg/m2 Wilton Montez DO Work Phone: [facility] 11-20-2024 10:53-0400 Body weight 94.35 kg Wilton Montez DO Work Phone: [facility] 11-20-2024 10:53-0400 Diastolic blood pressure 76 mm[Hg] Wilton Montez DO Work Phone: [facility] 11-20-2024 10:53-0400 Systolic blood pressure 108 mm[Hg] Wilton Montez DO Work Phone: [facility] 11-19-2024 13:07-0400 Body mass index (BMI) [Ratio] 33.73 kg/m2 Lorena Enciso RN Work Phone: [facility] 11-19-2024 13:07-0400 Body weight 94.8 kg Lorena Enciso RN Work Phone: [facility] 10-30-2024 09:32-0400 Body mass index (BMI) [Ratio] 33.81 kg/m2 Wilton Montez DO Work Phone: [facility] 10-30-2024 09:32-0400 Body weight 95.03 kg Wilton Montez DO Work Phone: [facility] 10-30-2024 09:32-0400 Diastolic blood pressure 76 mm[Hg] Wilton Montez DO Work Phone: [facility] 10-30-2024 09:32-0400 Systolic blood pressure 110 mm[Hg] Wilton Montez DO Work Phone: [facility] 10-28-2024 14:23-0400 Body mass index (BMI) [Ratio] 33.46 kg/m2 Katherine Negrete APRN.BILINGUAL INTERPRETER Work Phone: [facility] 10-28-2024 14:23-0400 Body temperature 97 [degF] Katherine Negrete APRN.BILINGUAL INTERPRETER Work Phone: [facility] 10-28-2024 14:23-0400 Body weight 94.1 kg Katherine Negrete APRN.BILINGUAL INTERPRETER Work Phone: [facility] 10-28-2024 14:23-0400 Diastolic blood pressure 77 mm[Hg] Katherine Negrete APRN.BILINGUAL INTERPRETER Work Phone: [facility] 10-28-2024 14:23-0400 Heart rate 82 /min Katherine Negrete APRN.BILINGUAL INTERPRETER Work Phone: [facility] 10-28-2024 14:23-0400 Respiratory rate 16 /min Katherine Negrete APRN.BILINGUAL INTERPRETER Work Phone: [facility] 10-28-2024 14:23-0400 SaO2% (BldA) [Mass fraction] 100 % Katherine Negrete APRN.BILINGUAL INTERPRETER Work Phone: [facility] 10-28-2024 14:23-0400 Systolic blood pressure 122 mm[Hg] Katherine Negrete APRN.BILINGUAL INTERPRETER Work Phone: [facility] 10-02-2024 14:10-0400 Body mass index (BMI) [Ratio] 33.89 kg/m2 [facility] 10-02-2024 14:10-0400 Body weight 95.[address] [facility] 10-02-2024 14:10-0400 Diastolic blood pressure 78 mm[Hg] [facility] Nurse [facility] 10-02-2024 14:10-0400 Systolic blood pressure 124 mm[Hg] [facility] Nurse [facility] 07-24-2024 12:07-0400 Body mass index (BMI) [Ratio] 34.44 kg/m2 Wilton Montez DO Work Phone: [facility] 07-24-2024 12:07-0400 Body weight 96.8 kg Wilton Montez DO Work Phone: [facility] 07-24-2024 12:07-0400 Diastolic blood pressure 84 mm[Hg] Wilton Montez DO Work Phone: [facility] 07-24-2024 12:07-0400 Systolic blood pressure 120 mm[Hg] Wilton Montez DO Work Phone: [facility] 06-30-2024 08:27-0500 Blood Pressure Location Penelope CASAS [facility] 06-30-2024 08:27-0500 Diastolic blood pressure 72 mm[Hg] Penelope CASAS [facility] 06-30-2024 08:27-0500 Heart rate 77 /min Penelope CASAS [facility] 06-30-2024 08:27-0500 SaO2% (BldA) [Mass fraction] 99 % Penelope CASAS [facility] 06-30-2024 08:27-0500 Systolic blood pressure 136 mm[Hg] Penelope CASAS [facility] 06-23-2024 15:21-0500 Body mass index (BMI) [Ratio] 34.93 kg/m2 Wilton Montez DO Work Phone: [facility] 06-23-2024 15:21-0500 Body weight 98.16 kg Wilton Montez DO Work Phone: [facility] 06-23-2024 15:21-0500 Diastolic blood pressure 74 mm[Hg] Wilton Montez DO Work Phone: [facility] 06-23-2024 15:21-0500 Systolic blood pressure 112 mm[Hg] Wilton Montez DO Work Phone: [facility] 06-19-2024 16:14-0500 Blood Pressure Location JESSICA YEELUISTONY [facility] 06-19-2024 16:14-0500 Diastolic blood pressure 72 mm[Hg] JESSICA CIEFRENJAYDOUGTONY [facility] 06-19-2024 16:14-0500 Heart rate 74 /min JESSICAJuaquin BACA [facility] 06-19-2024 16:14-0500 SaO2% (BldA) [Mass fraction] 100 % JESSICAJOSSELYN SANTANAAMARISTONY [facility] 06-19-2024 16:14-0500 Systolic blood pressure 126 mm[Hg] JESSICA BARRIOSDOUGTONY [facility] 06-09-2024 13:55-0500 Blood Pressure Location Penelope STYLESLE [facility] 06-09-2024 13:55-0500 Diastolic blood pressure 72 mm[Hg] Penelope KAPLE [facility] 06-09-2024 13:55-0500 Heart rate 78 /min Penelope KAPLE [facility] 06-09-2024 13:55-0500 SaO2% (BldA) [Mass fraction] 99 % Penelope KAPLE [facility] 06-09-2024 13:55-0500 Systolic blood pressure 178 mm[Hg] Penelope CASAS [facility] 06-02-2024 11:43-0500 Body mass index (BMI) [Ratio] 34.51 kg/m2 Wilton Montez DO Work Phone: [facility] 06-02-2024 11:43-0500 Body weight 96.98 kg Wilton Montez DO Work Phone: [facility] 06-02-2024 11:43-0500 Diastolic blood pressure 60 mm[Hg] Wilton Montez DO Work Phone: [facility] 06-02-2024 11:43-0500 Systolic blood pressure 120 mm[Hg] Wilton Montez DO Work Phone: [facility] 05-28-2024 13:07-0500 Body height 167.7 cm Kristofer Calix MD Work Phone: [facility] 05-28-2024 13:07-0500 Body mass index (BMI) [Ratio] 35.02 kg/m2 Kristofer Calix MD Work Phone: [facility] 05-28-2024 13:07-0500 Body temperature 97.59 [degF] Kristofer Calix MD Work Phone: [facility] 05-28-2024 13:07-0500 Body weight 98.5 kg Kristofer Calix MD Work Phone: [facility] 05-28-2024 13:07-0500 Diastolic blood pressure 83 mm[Hg] Kristofer Calix MD Work Phone: [facility] 05-28-2024 13:07-0500 Heart rate 72 /min Kristofer Calix MD Work Phone: [facility] 05-28-2024 13:07-0500 Respiratory rate 16 /min Kristofer Calix MD Work Phone: [facility] 05-28-2024 13:07-0500 SaO2% (BldA) [Mass fraction] 99 % Kristofer Calix MD Work Phone: [facility] 05-28-2024 13:07-0500 Systolic blood pressure 123 mm[Hg] Kristofer Calix MD Work Phone: [facility] 05-06-2024 14:40-0500 Body mass index (BMI) [Ratio] 35.41 kg/m2 Wilton Montez DO Work Phone: [facility] 05-06-2024 14:40-0500 Body weight 99.52 kg Wilton Montez DO Work Phone: [facility] 05-06-2024 14:40-0500 Diastolic blood pressure 80 mm[Hg] Wilton Montez DO Work Phone: [facility] 05-06-2024 14:40-0500 Systolic blood pressure 120 mm[Hg] Wilton Montez DO Work Phone: [facility] 04-04-2024 10:57-0500 Body mass index (BMI) [Ratio] 35.85 kg/m2 [facility] Nurse [facility] 04-04-2024 10:57-0500 Body weight 100.75 kg [facility] Nurse [facility] 02-05-2024 13:29-0400 Blood Pressure Location Penelope STEPHANILE [facility] 02-05-2024 13:29-0400 Body temperature 98.06 [degF] Penelope KAPLE [facility] 02-05-2024 13:29-0400 Diastolic blood pressure 70 mm[Hg] Penelope KAPLE [facility] 02-05-2024 13:29-0400 Heart rate 76 /min Penelope KAPLE [facility] 02-05-2024 13:29-0400 Respiratory rate 16 /min Penelope KAPLE [facility] 02-05-2024 13:29-0400 SaO2% (BldA) [Mass fraction] 99 % Penelope CASAS [facility] 02-05-2024 13:29-0400 Systolic blood pressure 122 mm[Hg] Penelope CASAS [facility] 02-02-2024 14:39-0400 Blood Pressure Location Anni Gudimella [facility] 02-02-2024 14:39-0400 Body temperature 98.06 [degF] Anni Gudimella [facility] 02-02-2024 14:39-0400 Diastolic blood pressure 84 mm[Hg] Anni Gudimella [facility] 02-02-2024 14:39-0400 Heart rate 98 /min Anni Gudimella [facility] 02-02-2024 14:39-0400 SaO2% (BldA) [Mass fraction] 99 % Anni Gudimella [facility] 02-02-2024 14:39-0400 Systolic blood pressure 121 mm[Hg] Anni Gudimella [facility] 01-02-2024 13:45-0400 Body height 167.7 cm Kristofer Calix MD Work Phone: [facility] 01-02-2024 13:45-0400 Body mass index (BMI) [Ratio] 36.52 kg/m2 Kristofer Calix MD Work Phone: [facility] 01-02-2024 13:45-0400 Body temperature 97.11 [degF] Kristofer Calix MD Work Phone: [facility] 01-02-2024 13:45-0400 Body weight 102.7 kg Kristofer Calix MD Work Phone: [facility] 01-02-2024 13:45-0400 Diastolic blood pressure 81 mm[Hg] Kristofer Calix MD Work Phone: [facility] 01-02-2024 13:45-0400 Heart rate 91 /min Kristofer Calix MD Work Phone: [facility] 01-02-2024 13:45-0400 Respiratory rate 16 /min Kristofer Calix MD Work Phone: [facility] 01-02-2024 13:45-0400 SaO2% (BldA) [Mass fraction] 100 % Kristofer Calix MD Work Phone: [facility] 01-02-2024 13:45-0400 Systolic blood pressure 128 mm[Hg] Kristofer Calix MD Work Phone: [facility] 11-29-2023 13:40-0400 Body temperature 97.7 [degF] Chair Linwood Work Phone: [facility] 11-29-2023 13:40-0400 Diastolic blood pressure 79 mm[Hg] Chair Stew Work Phone: [facility] 11-29-2023 13:40-0400 Heart rate 75 /min Chair Linwood Work Phone: [facility] 11-29-2023 13:40-0400 Respiratory rate 16 /min Chair Linwood Work Phone: [facility] 11-29-2023 13:40-0400 SaO2% (BldA) [Mass fraction] 99 % Chair Linwood Work Phone: [facility] 11-29-2023 13:40-0400 Systolic blood pressure 114 mm[Hg] Chair Linwood Work Phone: [facility] 11-22-2023 14:00-0400 Body temperature 98.2 [degF] Chair Linwood Work Phone: [facility] 11-22-2023 14:00-0400 Diastolic blood pressure 75 mm[Hg] Chair Stew Work Phone: [facility] 11-22-2023 14:00-0400 Heart rate 79 /min Chair Stew Work Phone: [facility] 11-22-2023 14:00-0400 Respiratory rate 16 /min Chair Linwood Work Phone: [facility] 11-22-2023 14:00-0400 SaO2% (BldA) [Mass fraction] 99 % Chair Stew Work Phone: [facility] 11-22-2023 14:00-0400 Systolic blood pressure 111 mm[Hg] Chair Linwood Work Phone: [facility] 11-15-2023 14:08-0400 Diastolic blood pressure 84 mm[Hg] Chair Linwood Work Phone: [facility] 11-15-2023 14:08-0400 Heart rate 85 /min Chair Stew Work Phone: [facility] 11-15-2023 14:08-0400 Respiratory rate 18 /min Chair Linwood Work Phone: [facility] 11-15-2023 14:08-0400 SaO2% (BldA) [Mass fraction] 96 % Chair Linwood Work Phone: [facility] 11-15-2023 14:08-0400 Systolic blood pressure 129 mm[Hg] Chair Stew Work Phone: [facility] 11-09-2023 14:44-0400 Blood Pressure Location Moniac Saba [facility] 11-09-2023 14:44-0400 Body temperature 97.34 [degF] Monica Saba [facility] 11-09-2023 14:44-0400 Diastolic blood pressure 74 mm[Hg] Monica Saba [facility] 11-09-2023 14:44-0400 Heart rate 85 /min Monica Saba [facility] 11-09-2023 14:44-0400 Respiratory rate 16 /min Monica Saba [facility] 11-09-2023 14:44-0400 SaO2% (BldA) [Mass fraction] 99 % Monica Saba [facility] 11-09-2023 14:44-0400 Systolic blood pressure 122 mm[Hg] Monica Saba [facility] 10-23-2023 16:48-0400 Blood Pressure Location Lourdes Garber [facility] 10-23-2023 16:48-0400 Body temperature 97.52 [degF] Lourdes Garber [facility] 10-23-2023 16:48-0400 Diastolic blood pressure 60 mm[Hg] Lourdes Garber [facility] 10-23-2023 16:48-0400 Heart rate 86 /min Lourdes Garber [facility] 10-23-2023 16:48-0400 SaO2% (BldA) [Mass fraction] 99 % Lourdes Garber [facility] 10-23-2023 16:48-0400 Systolic blood pressure 122 mm[Hg] Lourdes Mckeonler [facility] 09-28-2023 21:17-0400 Body temperature 98.06 [degF] Benny Uribe [facility] 09-28-2023 21:17-0400 Diastolic blood pressure 68 mm[Hg] Benny Rony [facility] 09-28-2023 21:17-0400 Heart rate 67 /min Benny Rony [facility] 09-28-2023 21:17-0400 Mean blood pressure 84 mm[Hg] Benny Rony [facility] 09-28-2023 21:17-0400 SaO2% (BldA) [Mass fraction] 95 % Benny Rony [facility] 09-28-2023 21:17-0400 Systolic blood pressure 117 mm[Hg] Benny Rony [facility] 09-28-2023 20:00-0400 Diastolic blood pressure 75 mm[Hg] Benny Rony [facility] 09-28-2023 20:00-0400 Heart rate 78 /min Benny Rony [facility] 09-28-2023 20:00-0400 Mean blood pressure 95 mm[Hg] Benny Rony [facility] 09-28-2023 20:00-0400 Respiratory rate 20 /min Benny Rony [facility] 09-28-2023 20:00-0400 Systolic blood pressure 134 mm[Hg] Benny Rony [facility] 09-28-2023 19:30-0400 Diastolic blood pressure 85 mm[Hg] Benny Rony [facility] 09-28-2023 19:30-0400 Heart rate 80 /min Benny Rony [facility] 09-28-2023 19:30-0400 Mean blood pressure 101 mm[Hg] Benny Rony [facility] 09-28-2023 19:30-0400 Respiratory rate 18 /min Benny Uribe [facility] 09-28-2023 19:30-0400 SaO2% (BldA) [Mass fraction] 100 % Benny Uribe [facility] 09-28-2023 19:30-0400 Systolic blood pressure 132 mm[Hg] Benny Uribe [facility] 09-28-2023 19:00-0400 Respiratory rate 17 /min Benny Uribe [facility] 09-28-2023 18:32-0400 Body temperature 98.42 [degF] Benny Uribe [facility] 09-28-2023 18:32-0400 Heart rate 69 /min Benny Uribe [facility] 09-28-2023 17:46-0400 Diastolic blood pressure 90 mm[Hg] JANET DUNHAM [facility] 09-28-2023 17:46-0400 Mean blood pressure 109 mm[Hg] JANET DUNHAM [facility] 09-28-2023 17:46-0400 Systolic blood pressure 148 mm[Hg] JANET DUNHAM [facility] 09-28-2023 17:40-0400 Blood Pressure Location JANET DUNHAM [facility] 09-28-2023 17:40-0400 Body temperature 97.88 [degF] JANET DUNHAM [facility] 09-28-2023 17:40-0400 Diastolic blood pressure 70 mm[Hg] JANET DUNHAM [facility] 09-28-2023 17:40-0400 Heart rate 79 /min JANET DUNHAM [facility] 09-28-2023 17:40-0400 SaO2% (BldA) [Mass fraction] 97 % JANET DUNHAM [facility] 09-28-2023 17:40-0400 Systolic blood pressure 150 mm[Hg] JANET DUNHAM [facility] 08-03-2023 11:42-0400 Blood Pressure Location Penelope CASAS [facility] 08-03-2023 11:42-0400 Body temperature 98.06 [degF] Penelope KAPLE [facility] 08-03-2023 11:42-0400 Diastolic blood pressure 80 mm[Hg] Penelope KAPLE [facility] 08-03-2023 11:42-0400 Heart rate 72 /min Penelope KAPLE [facility] 08-03-2023 11:42-0400 Respiratory rate 16 /min Penelope KAPLE [facility] 08-03-2023 11:42-0400 SaO2% (BldA) [Mass fraction] 99 % Penelope KAPLE [facility] 08-03-2023 11:42-0400 Systolic blood pressure 120 mm[Hg] Penelope KAPLE [facility] 06-15-2023 14:05-0500 Body height 167.7 cm Kristofer Calix MD Work Phone: [facility] 06-15-2023 14:05-0500 Body temperature 97.39 [degF] Kristofer Calix MD Work Phone: [facility] 06-15-2023 14:05-0500 Body weight 108.1 kg Kristofer Calix MD Work Phone: [facility] 06-15-2023 14:05-0500 Diastolic blood pressure 75 mm[Hg] Kristofer Calix MD Work Phone: [facility] 06-15-2023 14:05-0500 Heart rate 87 /min Kristofer Calix MD Work Phone: [facility] 06-15-2023 14:05-0500 Respiratory rate 16 /min Kristofer Calix MD Work Phone: [facility] 06-15-2023 14:05-0500 SaO2% (BldA) [Mass fraction] 95 % Kristofer Calix MD Work Phone: [facility] 06-15-2023 14:05-0500 Systolic blood pressure 147 mm[Hg] Kristofer Calix MD Work Phone: [facility] 05-25-2023 11:11-0500 Blood Pressure Location Penelope STYLESLE [facility] 05-25-2023 11:11-0500 Body temperature 97.7 [degF] Penelope STEPHANILE [facility] 05-25-2023 11:11-0500 Diastolic blood pressure 70 mm[Hg] Penelope KAPLE [facility] 05-25-2023 11:11-0500 Heart rate 76 /min Penelope KAPLE [facility] 05-25-2023 11:11-0500 Respiratory rate 18 /min Penelope KAPLE [facility] 05-25-2023 11:11-0500 SaO2% (BldA) [Mass fraction] 98 % Penelope STEPHANILE [facility] 05-25-2023 11:11-0500 Systolic blood pressure 118 mm[Hg] Penelope KAPLE [facility] 02-15-2023 09:41-0400 Blood Pressure Location Penelope KAPLE [facility] 02-15-2023 09:41-0400 Body temperature 98.42 [degF] Penelope KAPLE [facility] 02-15-2023 09:41-0400 Diastolic blood pressure 74 mm[Hg] Penelope KAPLE [facility] 02-15-2023 09:41-0400 Heart rate 80 /min Penelope KAPLE [facility] 02-15-2023 09:41-0400 Respiratory rate 18 /min Penelope KAPLE [facility] 02-15-2023 09:41-0400 SaO2% (BldA) [Mass fraction] 98 % Penelope KAPLE [facility] 02-15-2023 09:41-0400 Systolic blood pressure 122 mm[Hg] Penelope KAPLE [facility] 10-20-2022 09:44-0400 Blood Pressure Location Penelope KAPLE [facility] 10-20-2022 09:44-0400 Body temperature 98.24 [degF] Penelope KAPLE [facility] 10-20-2022 09:44-0400 Diastolic blood pressure 81 mm[Hg] Penelope KAPLE [facility] 10-20-2022 09:44-0400 Heart rate 88 /min Penelope KAPLE [facility] 10-20-2022 09:44-0400 Respiratory rate 18 /min Penelope PRAVEEN [facility] 10-20-2022 09:44-0400 SaO2% (BldA) [Mass fraction] 98 % Penelope PRAVEEN [facility] 10-20-2022 09:44-0400 Systolic blood pressure 130 mm[Hg] Penelope CASAS [facility] 07-27-2022 13:18-0400 Body height 167.7 cm Kristofer Calix MD Work Phone: [facility] 07-27-2022 13:18-0400 Body temperature 97.5 [degF] Kristofer Calix MD Work Phone: [facility] 07-27-2022 13:18-0400 Body weight 107.78 kg Kristofer Calix MD Work Phone: [facility] 07-27-2022 13:18-0400 Diastolic blood pressure 79 mm[Hg] Kristofer Calix MD Work Phone: [facility] 07-27-2022 13:18-0400 Heart rate 76 /min Kristofer Calix MD Work Phone: [facility] 07-27-2022 13:18-0400 Respiratory rate 16 /min Kristofer Calix MD Work Phone: [facility] 07-27-2022 13:18-0400 SaO2% (BldA) [Mass fraction] 97 % Kristofer Calix MD Work Phone: [facility] 07-27-2022 13:18-0400 Systolic blood pressure 136 mm[Hg] Kristofer Calix MD Work Phone: [facility] 04-20-2022 13:45-0500 Body temperature 98.71 [degF] Chair Claudio Work Phone: [facility] 04-20-2022 13:45-0500 Diastolic blood pressure 66 mm[Hg] Chair Stew Work Phone: [facility] 04-20-2022 13:45-0500 Heart rate 85 /min Chair Linwood Work Phone: [facility] 04-20-2022 13:45-0500 SaO2% (BldA) [Mass fraction] 97 % Chair Linwood Work Phone: [facility] 04-20-2022 13:45-0500 Systolic blood pressure 120 mm[Hg] Chair Stew Work Phone: [facility] 04-05-2022 16:27-0500 Diastolic blood pressure 65 mm[Hg] Chair Stew Work Phone: [facility] 04-05-2022 16:27-0500 Heart rate 84 /min Chair Stew Work Phone: [facility] 04-05-2022 16:27-0500 Respiratory rate 18 /min Chair Stew Work Phone: [facility] 04-05-2022 16:27-0500 SaO2% (BldA) [Mass fraction] 96 % Chair Linwood Work Phone: [facility] 04-05-2022 16:27-0500 Systolic blood pressure 119 mm[Hg] Chair Linwood Work Phone: [facility] 03-27-2022 14:20-0500 Body height 167.7 cm Kristofer Calix MD Work Phone: [facility] 03-27-2022 14:20-0500 Body temperature 97.39 [degF] Kristofer Calix MD Work Phone: [facility] 03-27-2022 14:20-0500 Body weight 106.23 kg Kristofer Calix MD Work Phone: [facility] 03-27-2022 14:20-0500 Diastolic blood pressure 59 mm[Hg] Kristofer Calix MD Work Phone: [facility] 03-27-2022 14:20-0500 Heart rate 100 /min Kristofer Calix MD Work Phone: [facility] 03-27-2022 14:20-0500 Respiratory rate 16 /min Kristofer Calix MD Work Phone: [facility] 03-27-2022 14:20-0500 SaO2% (BldA) [Mass fraction] 97 % Kristofer Calix MD Work Phone: [facility] 03-27-2022 14:20-0500 Systolic blood pressure 125 mm[Hg] Kristofer Calix MD Work Phone: [facility] 01-30-2022 11:46-0400 Body height 167.7 cm Kristofer Calix MD Work Phone: [facility] 01-30-2022 11:46-0400 Body temperature 97.2 [degF] Kristofer Calix MD Work Phone: [facility] 01-30-2022 11:46-0400 Body weight 104.42 kg Kristofer Calix MD Work Phone: [facility] 01-30-2022 11:46-0400 Diastolic blood pressure 61 mm[Hg] Kristofer Calix MD Work Phone: [facility] 01-30-2022 11:46-0400 Heart rate 88 /min Kristofer Calix MD Work Phone: [facility] 01-30-2022 11:46-0400 Respiratory rate 16 /min Kristofer Calix MD Work Phone: [facility] 01-30-2022 11:46-0400 SaO2% (BldA) [Mass fraction] 99 % Kristofer Calix MD Work Phone: [facility] 01-30-2022 11:46-0400 Systolic blood pressure 122 mm[Hg] Kristofer Calix MD Work Phone: [facility] 08-19-2021 10:46-0400 Blood Pressure Location PERNELL SIDEMICHELLE [facility] 08-19-2021 10:46-0400 Diastolic blood pressure 78 mm[Hg] PERNELL SIDELL [facility] 08-19-2021 10:46-0400 Heart rate 96 /min PERNELL SIDEMICHELLE [facility] 08-19-2021 10:46-0400 SaO2% (BldA) [Mass fraction] 99 % PERNELL SIDEMICHELLE [facility] 08-19-2021 10:46-0400 Systolic blood pressure 124 mm[Hg] PERNELL SIDEMICHELLE [facility] Encounters Encounter Date Encounter Type Care Provider Facility Start: 02-10-2025 End: 02-10-2025 Telephone encounter Annita WELLS Work Phone: [facility] Start: 02-09-2025 End: 02-09-2025 ambulatory WILTON MONTEZ Not Available Start: 02-09-2025 End: 02-09-2025 Office outpatient visit 15 minutes Wilton Montez DO Work Phone: [facility] Comment on above: Third trimester preg shady ([facility]); 28 weeks gestation of ([facility]); Anemia complicating childbirth ([facility]); Anticoagulant long-term use; Antiphospholipid antibody positive; Blood pressure elevated without history of HTN; Coagulation defect, unspecified ([facility]) Start: 02-06-2025 End: 02-06-2025 ambulatory [place] Start: 02-06-2025 End: 02-06-2025 Office outpatient visit 25 minutes Mukul Noyola MD Work Phone: [facility] Comment on above: 27 weeks gestation o f (Primary Dx); Multigravida of advanced maternal age in third trimester; Gestational diabetes mellitus (GDM) in second trimester controlled on oral hypoglycemic drug; Antiphospholipid syndrome complicating , antepartum; Antiphospholipid syndrome Start: 02-05-2025 End: 02-05-2025 ambulatory [facility] Start: 02-03-2025 End: 02-03-2025 ambulatory [facility] Facility:[facility] Start: 01-19-2025 End: 01-19-2025 ambulatory [facility] Not Available Start: 01-19-2025 End: 01-19-2025 Office outpatient visit 15 minutes Wilton Herrmann DO Work Phone: [facility] Comment on above: Second trimester pre gnancy ([facility]); 25 weeks gestation of ([facility]); Gestational diabetes mellitus (GDM), antepartum, gestational diabetes method of control unspecified ([facility]); Anticoagulant long-term use; Antiphospholipid antibody positive; Antiphospholipid antibody syndrome ([facility]) Start: 01-17-2025 ambulatory [facility] R MONTEZ Facility: [facility] Start: 01-13-2025 End: 01-13-2025 Office outpatient visit 25 minutes Roxana Mays PA-C Work Phone: [facility] Comment on above: Gestational diabetes mellitus (GDM) in second trimester controlled on oral hypoglycemic drug (Primary Dx); Antiphospholipid syndrome; Other specified hypothyroidism; Antiphospholipid syndrome complicating , antepartum Start: 01-13-2025 End: 01-13-2025 ambulatory [place] Start: 01-09-2025 End: 01-09-2025 Telephone encounter Mukul Noyola MD Work Phone: [facility] Comment on above: Antiphospholipid syn drome (Primary Dx) Start: 01-07-2025 End: 01-07-2025 Telephone encounter Jacque Pat RN [facility] Start: 01-05-2025 End: 01-05-2025 ambulatory WILTON HERRMANN Not Available Start: 01-05-2025 End: 01-05-2025 Office outpatient visit 15 minutes Wilton Montez DO Work Phone: [facility] Comment on above: Second trimester pre gnancy ([facility]); 23 weeks gestation of ([facility]); Thyroid disease ; Gestational diabetes mellitus (GDM), antepartum, gestational diabetes method of control unspecified ([facility]); Multigravida of advanced maternal age in second trimester ([facility]); H/O loss; Lightheaded; Dizziness Start: 01-05-2025 End: 01-05-2025 Bamboo flowsheet Wilton Montez DO Work Phone: [facility] Start: 01-05-2025 End: 01-05-2025 Bamboo flowsheet Wilton Montez DO Work Phone: [facility] Start: 01-05-2025 End: 01-05-2025 Documentation procedure Jacque Pat RN [facility] Comment on above: Multigravida of adva nced maternal age in second trimester (Primary Dx); Antiphospholipid syndrome complicating , antepartum; Gestational diabetes mellitus (GDM) in second trimester controlled on oral hypoglycemic drug; AMA (advanced maternal age) multigravida 35+, second trimester; Hypothyroidism, unspecified type; History of stroke; History of loss in prior , currently in second trimester; Hypothyroidism affecting in second trimester; Family history of autism; Hyponatremia Start: 01-01-2025 End: 01-01-2025 Office consultation new/estab patient 80 min Mukul Noyola MD Work Phone: [facility] [place] Comment on above: 22 weeks gestation o f (Primary Dx); Antiphospholipid syndrome complicating , antepartum; History of stroke; History of loss in prior , currently in second trimester; Gestational diabetes mellitus (GDM) in second trimester controlled on oral hypoglycemic drug; Multigravida of advanced maternal age in second trimester; Hypothyroidism affecting in second trimester; Family history of autism; Hyponatremia Start: 01-01-2025 End: 01-01-2025 Orders Only Iraida Warren RN [facility] [place] Comment on above: Multigravida of adva nced maternal age in second trimester (Primary Dx); Antiphospholipid syndrome complicating , antepartum; Gestational diabetes mellitus (GDM) in second trimester controlled on oral hypoglycemic drug; Insulin controlled gestational diabetes mellitus (GDM) in second trimester; AMA (advanced maternal age) multigravida 35+, second trimester; Hypothyroidism, unspecified type Start: 12-26-2024 End: 12-26-2024 Orders Only Mukul Noyola MD Work Phone: [facility] Comment on above: Gestational diabetes mellitus (GDM) in second trimester controlled on oral hypoglycemic drug (Primary Dx) Start: 12-23-2024 End: 12-23-2024 Patient encounter procedure Katherine Negrete APRN.CNP Work Phone: Hematology/Oncology Start: 12-23-2024 End: 12-23-2024 ambulatory Katherine Negrete APRN.CNP Work Phone: Hematology/Oncology Comment on above: Antiphospholipid ant ibody positive (Primary Dx); Iron deficiency anemia secondary to blood loss (chronic); Vitamin D deficiency; Primary hypercoagulable state (HCC) Start: 12-17-2024 End: 12-17-2024 ambulatory [place] Start: 12-17-2024 End: 12-17-2024 Office outpatient visit 25 minutes Alisa Saba APRN-OTR Work Phone: [facility] Comment on above: Gestational diabetes mellitus (GDM) in second trimester controlled on oral hypoglycemic drug (Primary Dx) Start: 12-17-2024 End: 12-17-2024 ambulatory [place] Start: 12-16-2024 End: 12-16-2024 Clinisync Result Encounter Wilton Montez DO Work Phone: [facility] External [facility] Unsolicited Start: 12-16-2024 End: 12-16-2024 Clinisync Result Encounter Wilton Montez DO Work Phone: [facility] External [facility] Unsolicited Start: 12-12-2024 End: 12-12-2024 Telephone encounter Annita Kendall LD Work Phone: [facility] Start: 12-11-2024 End: 12-11-2024 Bamboo flowsheet Wilton Montez DO Work Phone: [facility] Start: 12-11-2024 End: 12-11-2024 Bamboo flowsheet Wilton Montez DO Work Phone: [facility] Start: 12-11-2024 End: 12-11-2024 Clinisync Result Encounter Wilton Montez DO Work Phone: [facility] External [facility] Unsolicited Start: 12-11-2024 End: 12-11-2024 ambulatory WILTON MONTEZ Not Available Start: 12-11-2024 End: 12-11-2024 Office outpatient visit 15 minutes Wilton Montez DO Work Phone: [facility] Comment on above: 19 weeks gestation o f ([facility]); Second trimester ([facility]); Thyroid disease ; Multigravida of advanced maternal age in second trimester ([facility]); Gestational diabetes mellitus (GDM), antepartum, gestational diabetes method of control unspecified ([facility]) Start: 12-03-2024 End: 12-03-2024 ambulatory [place] Start: 12-03-2024 End: 12-03-2024 Office outpatient visit 25 minutes Alisa HUTTON Work Phone: [facility] Comment on above: Insulin controlled g estational diabetes mellitus (GDM) in second trimester (Primary Dx) Start: 12-03-2024 End: 12-03-2024 Telephone encounter Letaghulam Abreu CMA [facility] Start: 11-20-2024 End: 11-20-2024 Bamboo flowsheet Wilton Montez DO Work Phone: [facility] Start: 11-20-2024 End: 11-20-2024 Bamboo flowsheet Wilton Montez DO Work Phone: [facility] Start: 11-20-2024 End: 11-20-2024 ambulatory WILTON MONTEZ Not Available Start: 11-20-2024 End: 11-20-2024 Office outpatient visit 15 minutes Wilton Montez DO Work Phone: [facility] Comment on above: Second trimester pre gnancy ([facility]); 16 weeks gestation of ([facility]); Screening, , for anatomic survey ([facility]); Vaginal discharge; Sinus headache Start: 11-19-2024 End: 11-19-2024 ambulatory Lorena Enciso RN Work Phone: [facility] Comment on above: Gestational diabetes mellitus (GDM), antepartum, gestational diabetes method of control unspecified (Primary Dx) Start: 11-04-2024 End: 11-04-2024 Chart abstracting Mukul Noyola MD Work Phone: [facility] Start: 10-30-2024 End: 10-30-2024 Bamboo flowsheet [...] Start: 10-28-2024 End: 10-28-2024 ambulatory Katherine Negrete APRN.TOR Work Phone: Hematology/Oncology Comment on above: Primary hypercoagula ble state (HCC) (Primary Dx); CVA, old, speech/language deficit; Cerebral hyponatremia; Personal history of TIA (transient ischemic attack) Start: 10-28-2024 End: 11-05-2024 Telephone encounter Katherine Negrete APRN.CNP [facility] Comment on above: Results Start: 10-24-2024 End: 10-24-2024 Telephone encounter Katherine Negrete APRN.CNP Work Phone: Hematology/Oncology Comment on above: Lab Orders Start: 10-20-2024 End: 2024 Refill Kristofer Calix MD Work Phone: Hematology/Oncology Comment on above: Refill Request Start: 10-13-2024 End: 10-13-2024 Orders Only Margo Khan RN [facility] Comment on above: Gestational diabetes mellitus (GDM), antepartum, gestational diabetes method of control unspecified (Primary Dx) Start: 10-06-2024 End: 10-06-2024 Clinisync Result Encounter Wilton Herrmann DO Work Phone: [facility] External [facility] [...] Start: 09-09-2024 End: 09-09-2024 ambulatory Penelope CASAS Facility:[facility] Start: 09-09-2024 End: 09-09-2024 Patient encounter procedure Penelope CASSA [facility] Start: 09-07-2024 End: 09-07-2024 ambulatory Romulo Chiu Facility:[facility] Start: 09-02-2024 End: 09-03-2024 Telephone encounter Rachael Johnson RN Hematology/Oncology Comment on above: Patient Update Start: 08-26-2024 End: 08-26-2024 Telephone encounter Kristofer Calix MD Work Phone: Hematology/Oncology Comment on above: Lab Orders Start: 08-23-2024 End: 08-23-2024 ambulatory Wilton R MONTEZ Facility:[facility] Start: 08-23-2024 End: 08-23-2024 Patient encounter procedure Wilton R MONTEZ [facility] Start: 07-25-2024 End: 07-31-2024 Refill Kristofer [...] Start: 07-09-2024 End: 07-09-2024 ambulatory Farhat Blue Facility:[facility] Start: 07-09-2024 End: 07-09-2024 Patient encounter procedure Inez Wakefield [facility] Start: 07-08-2024 End: 07-26-2024 Pre-admission assessment Inez Wakefield [facility] Start: 07-07-2024 End: 07-07-2024 ambulatory Penelope A PRAVEEN Facility:[facility] Start: 06-30-2024 End: 06-30-2024 ambulatory Penelope A PRAVEEN Facility:[facility] Start: 06-30-2024 End: 06-30-2024 Patient encounter procedure Penelope A PRAVEEN [facility] Start: 06-23-2024 End: 06-23-2024 [...] Start: 06-19-2024 End: 06-19-2024 ambulatory JESSICA BACA Facility:[facility] Start: 06-19-2024 End: 06-19-2024 Patient encounter procedure JESSICA BACA [facility] [place] Start: 06-12-2024 End: 06-12-2024 ambulatory Wilton R MONTEZ Facility:[facility] Start: 06-12-2024 End: 06-12-2024 Patient encounter procedure Wilton R MONTEZ [facility] Start: 06-09-2024 End: 06-09-2024 ambulatory Penelope CASAS Facility:[facility] Start: 06-09-2024 End: 06-09-2024 Patient encounter procedure Wilton R MONTEZ [facility] Start: 06-06-2024 End: 06-06-2024 ambulatory ABI LOZANO Facility:[facility] [place] Start: 06-02-2024 End: 06-02-2024 ambulatory WILTON MONTEZ Not Available Start: 06-02-2024 End: 06-02-2024 Office outpatient visit 15 minutes Wilton Montez DO Work Phone: [facility] Comment on above: Follow-up visit afte r miscarriage; Abnormal TSH; History of thyroid disease Start: 05-28-2024 End: 05-28-2024 Telephone encounter Kristofer Calix MD Work Phone: [facility] Start: 05-28-2024 End: 05-28-2024 Office outpatient visit 25 minutes Kristofer Calix MD Work Phone: Hematology/Oncology Comment on above: Primary hypercoagula ble state (HCC) (Primary Dx); CVA, old, speech/language deficit; Iron deficiency anemia secondary to blood loss (chronic); Vitamin D deficiency; Antiphospholipid antibody syndrome (HCC) Start: 05-28-2024 End: 05-28-2024 ambulatory PENELOPE CASAS Facility:[facility] Start: 05-16-2024 ambulatory Penelope CASAS Facility: [facility] Start: 05-14-2024 End: 05-14-2024 Telephone encounter Rachael Johnson RN Hematology/Oncology Comment on above: Patient Update Start: 05-10-2024 End: 05-10-2024 Clinisync Result Encounter Wilton Montez DO Work Phone: [facility] External Department Unsolicited Start: 05-10-2024 End: 05-10-2024 Clinisync Result Encounter Wilton Montez DO Work Phone: [facility] External Department Unsolicited Start: 05-10-2024 End: 05-10-2024 ambulatory Wilton Montez [facility] Work Phone: Start: 05-10-2024 End: 05-10-2024 Departed Referred Wilton Montez DO Work Phone: [facility] Start: 05-06-2024 End: 05-06-2024 ambulatory WILTON [...] 03-01-2024 End: 03-01-2024 ambulatory Wilton R MONTEZ Facility:[facility] Start: 03-01-2024 End: 03-01-2024 Patient encounter procedure Wilton R MONTEZ [facility] Start: 02-27-2024 End: 12-08-2024 ambulatory Wilton R MONTEZ Facility:[facility] Start: 02-27-2024 End: 02-28-2024 Telephone encounter Rachael Johnson RN Hematology/Oncology Comment on above: Patient Question Start: 02-25-2024 End: 02-25-2024 ambulatory Wilton R MONTEZ Facility:[facility] Start: 02-25-2024 End: 02-25-2024 Patient encounter procedure Wilton R MONTEZ [facility] Start: 02-23-2024 End: 02-23-2024 ambulatory Penelope CASAS Facility:[facility] Start: 02-23-2024 End: 02-23-2024 Patient encounter procedure Wilton HERRMANN [facility] Start: 02-05-2024 End: 02-05-2024 ambulatory Penelope Cecily CASAS Facility:[facility] Start: 02-05-2024 End: 02-05-2024 Patient encounter procedure Penelope Cecily PRAVEEN [facility] Start: 02-05-2024 End: 02-05-2024 Well adult monitoring check done Penelope Cecily PRAVEEN [facility] Start: 02-02-2024 End: 02-02-2024 ambulatory Anni Gudimella Facility:[facility] Start: 02-02-2024 End: 02-02-2024 Patient encounter procedure Anni Gudimella [facility] Start: 01-29-2024 ambulatory Penelope Cecily PRAVEEN Facility: [facility] Start: 01-24-2024 End: 01-25-2024 Refill Kristofer Calix MD Work Phone: Hematology/Oncology Comment on above: Refill Request Start: 01-02-2024 End: 01-07-2024 Telephone encounter Kristofer Calix MD 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 Refill Request Iron deficiency anem ia of (Primary Dx); Iron deficiency anemia secondary to blood loss (chronic) Start: 11-22-2023 End: 11-22-2023 ambulatory Chair 12 Stew Work Phone: Hematology/Oncology Comment on above: Iron deficiency anem ia of (Primary Dx); Iron deficiency anemia secondary to blood loss (chronic) Start: 11-15-2023 Telephone encounter Financial Navigator Delgado Work Phone: Hematology/Oncology Start: 11-15-2023 End: 11-15-2023 ambulatory Chair 12 Stew Work Phone: Hematology/Oncology Comment on above: Iron deficiency anem ia of (Primary Dx); Iron deficiency anemia secondary to blood loss (chronic) Start: 11-09-2023 End: 11-09-2023 Patient encounter procedure Monica Saba [facility] Start: 11-09-2023 End: 11-09-2023 Social Work Tamiko Krueger [facility] Hematology/Oncology Start: 11-05-2023 Telephone encounter Kristofer garcia MD Work Phone: [facility] Comment on above: Appointment Start: 10-23-2023 End: 10-23-2023 ambulatory Lourdes Garber Facility:[facility] Start: 10-23-2023 End: 10-23-2023 Patient encounter procedure Lourdes Garber [facility] Start: 09-28-2023 End: 09-28-2023 Emergency department patient visit Benny Uribe [facility] Start: 09-28-2023 End: 09-28-2023 ambulatory KITTY-Galileo DUNHAM Facility:[facility] Start: 09-28-2023 End: 09-28-2023 Patient encounter procedure JANET DUNHAM [facility] Start: 09-27-2023 Telephone encounter Kristofer garcia MD 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) Start: 09-21-2023 End: 09-26-2023 Telemedicine consultation with patient Kristofer Calix MD Work Phone: Hematology/Oncology Start: 08-03-2023 End: 08-03-2023 ambulatory Penelope CASAS Facility:[facility] Start: 08-03-2023 End: 08-03-2023 Patient encounter procedure Penelope CASAS [facility] Start: 06-29-2023 End: 06-29-2023 ambulatory Penelope CASAS Facility:[facility] Start: 06-29-2023 End: 06-29-2023 Patient encounter procedure Penelope CASAS [facility] Start: 06-19-2023 ambulatory Rachael [...] encounter Kristofer garcia MD [facility] Comment on above: Results Start: 06-11-2023 Telephone encounter Kristofer garcia MD Work Phone: Hematology/Oncology Comment on above: Lab Orders Start: 06-01-2023 Telephone encounter Kristofer garcia MD [facility] Comment on above: Future Appointment Start: 05-31-2023 [...] STEW Start: 05-25-2023 End: 05-25-2023 ambulatory Penelope CASAS Facility:[facility] Start: 05-25-2023 End: 05-25-2023 Patient encounter procedure Penelope CASAS [facility] Start: 05-01-2023 End: 05-01-2023 ambulatory Penelope CASAS Facility:[facility] Start: 04-27-2023 End: 04-27-2023 Lab Drop off Penelope CASAS [facility] Start: 04-27-2023 End: 04-27-2023 ambulatory Penelope CASAS Facility:[facility] Start: 04-25-2023 End: 04-25-2023 ambulatory Taylor Hong Facility:[facility] Start: 03-19-2023 End: 03-19-2023 ambulatory Kristofer Calix MD Work Phone: Hematology/Oncology Comment on above: Primary hypercoagula ble state (HCC) (Primary Dx); Iron deficiency anemia secondary to blood loss (chronic); Vitamin D deficiency; CVA, old, speech/language deficit; Antiphospholipid antibody syndrome (HCC) Start: 03-19-2023 End: 03-19-2023 Telemedicine consultation with patient Kristofer Calix MD Work Phone: [facility] Start: 02-15-2023 End: 02-15-2023 ambulatory Penelope CASAS Facility:[facility] Start: 02-15-2023 End: 02-15-2023 Patient encounter procedure Penelope CASAS [facility] Start: 02-13-2023 ambulatory Penelope CASAS Facility: [facility] Start: 12-26-2022 End: 12-26-2022 ambulatory Lourdesshelby Garber Facility:[facility] Start: 12-26-2022 End: 12-26-2022 Patient encounter procedure Lourdes Garber [facility] Start: 12-22-2022 End: 12-22-2022 [...] encounter Kristofer garcia MD [facility] Comment on above: Appointment Start: 10-20-2022 End: 10-20-2022 Patient encounter procedure Penelope CASAS [facility] Start: 09-28-2022 End: 09-28-2022 ambulatory Kristofer Calix MD Work Phone: Hematology/Oncology Comment on above: Primary hypercoagula ble state (HCC); CVA, old, speech/language deficit; Cerebral hyponatremia Start: 09-28-2022 End: 09-28-2022 Telemedicine consultation with patient Kristofer Calix MD Work Phone: ST[facility] Start: 09-26-2022 End: 09-26-2022 Patient encounter procedure Kristofer Calix [facility] Start: 09-19-2022 Telephone encounter Valeri Yeung RN Hematology/Oncology Comment on above: Orders Start: 09-05-2022 End: 09-05-2022 Patient encounter procedure Wilton HERRMANN [facility] Start: 08-07-2022 End: 08-07-2022 Patient encounter procedure Wilton HERRMANN [facility] Start: 07-27-2022 End: 07-27-2022 Office [...] Start: 04-20-2022 End: 04-21-2022 ambulatory Chair 10 Stew Work Phone: Hematology/Oncology Comment on above: [...] Start: 04-05-2022 End: 04-05-2022 ambulatory Chair 11 Stew Work Phone: Hematology/Oncology Comment on above: [...] encounter Kristofer garcia MD Work Phone: Cancer [facility] Comment on above: Results Start: [...] Start: 11-21-2021 End: 11-22-2021 ambulatory PENELOPE CASAS [facility] Start: 11-21-2021 End: 11-21-2021 Subsequent hospital visit by physician Penelope Casas Work Phone: [facility] Start: 11-14-2021 End: 02-13-2022 Patient encounter procedure SELF REFERRAL [facility] Start: 11-04-[address] WILTON [...] End: 08-31-2021 Patient encounter procedure Penelope CASAS [facility] Start: 08-29-2021 End: 08-30-[address] WILTON HERRMANN Facility:[facility] Start: 08-26-2021 End: 08-27-[address] WILTON HERRMANN Facility:[facility] Start: 08-24-2021 End: 08-25-[address] WILTON HERRMANN Facility:[facility] Start: 08-22-2021 Telephone encounter Meme Easton RN Hematology/Oncology Comment on above: Patient Question Start: 08-19-2021 End: 08-19-2021 Patient encounter procedure PERNELL LONGORIA [facility] Start: 08-19-2021 End: 08-19-2021 Lab Drop off PERNELL LONGORIA [facility] Start: 08-19-2021 End: 08-19-2021 Patient encounter procedure PERNELL LONGORIA [facility] [place] Start: 08-01-2021 Telephone encounter Kristofer garcia MD Work Phone: [facility] Comment on above: Future Appointment Start: 08-01-2021 End: 08-01-2021 Nursing evaluation of patient and report Ma Nurse Delgado Golden Work Phone: Hematology/Oncology Comment on above: Infective urethritis (Primary Dx) Start: 06-03-2018 Patient encounter procedure Haseeb Morel Facility:[facility] Start: 11-08-2017 Patient encounter procedure ERIKA LONDON Facility:[id number] Start: 05-25-2017 End: 05-26-2017 Ambulatory [facility] Procedures Date Procedure Procedure Detail Performing Clinician Start: 02-09-2025 Urnls dip stick/tablet rgnt non-auto w/o micrscp Wilton Montez DO Work Phone: Start: 01-19-2025 Urnls dip stick/tablet rgnt non-auto w/o micrscp Wilton Montez DO Work Phone: Start: 01-05-2025 Urnls dip stick/tablet rgnt non-auto w/o micrscp Wilton Montez DO Work Phone: Start: 12-16-2024 US OB CERVICAL LENGTH Wilton Montez DO Work Phone: Start: 12-16-2024 [facility]H UA (CLEAN/CATCH) CLERICAL TRANSCRIBER/MICRO IF IND. Wilton Montez DO Work Phone: Start: 12-11-2024 ALL THYROID STIM HORMONE Wilton [...] System Ref Prov Start: 10-06-2024 Antibody screen Mukul Noyola MD Work Phone: Start: 10-06-2024 Drug scrn [...] Wilton Herrmann DO Work Phone: Start: 11-21-2021 End: 11-21-2021 Alpha-fetoprotein serum Scanning Provide r External Start: 11-21-2021 End: 11-21-2021 CARRIER STUDY NON-[facility] Scanning Pro vider External Start: 11-21-2021 MISCELLANEOUS TESTING Tod Mullins MD Work Phone: Start: 02-02-2020 Adult depression screening assessment Nevin Golden Work Phone: Start: 05-25-2017 CSF CULTURE CROW [...] MONGE Start: 06-14-2013 Biopsy of breast [employer] Start: 04-30-2006 Extraction of wisdom tooth PERNELL LONGORIA endoscopy for ovaria n cysts to drain PERNELL LONGORIA Vaccine refused by patient COVID -19 vaccine dose declined( Confirmed ) [employer] Plan of Treatment Date Care Activity Detail Author Start: 2060 RSV Vaccine (1 - 1-d ose 75+ series) RSV Vaccine (1 - 1-dose 75+ series) [facility] Start: 02-06-2026 Tobacco Screening Tobacco Screening [employer] Start: 01-05-2026 End: 01-05-2026 US MFM with or without consult US MFM with or without consult Imaging Routine Multigravida of advanced maternal age in second trimester Antiphospholipid syndrome complicating , antepartum Gestational diabetes mellitus (GDM) in second trimester controlled on oral hypoglycemic drug AMA (advanced maternal age) multigravida 35+, second trimester Hypothyroidism, unspecified type History of stroke History of loss in prior , currently in second trimester Hypothyroidism affecting in second trimester Family history of autism Hyponatremia Expected: 01/05/2026 (Approximate), Expires: 01/05/2026 [employer] Phone: Comment on above: Expected: 01/05/2026 (Approximate), Expires: 01/05/2026 Start: 01-01-2026 Adult BMI Screening Adult BMI Screen ing [facility] Start: 01-01-2026 Tobacco Screening Tobacco Screening [facility] Start: 11-19-2025 Adult BMI Screening Adult BMI Screen ing [facility] Start: 03-10-2025 End: 03-10-2025 Telemedicine consultation with patient 03/10/2025 8:00 AM EST Telemedicine Maternal- Medicine at [facility] [address] [place] [address] Sana Palma MD [address] [place] [address] M[facility]- Medicine at [facility] Start: 03-02-2025 End: 03-02-2025 Follow-up encounter 03/02/2025 11:30 AM EST Visit (SP) Office Hematology/Oncology [address] [address] Katherine Negrete APRN.BILINGUAL INTERPRETER [address] [place] [address] 2 month follow up Hematology/Oncology Comment on above: 2 month follow up Start: 03-02-2025 End: 03-02-2025 Patient encounter procedure 03/02/2025 11:15 AM EST Office Visit [facility] [address] [address] lab [facility] Comment on above: lab Start: 02-23-2025 End: 02-23-2025 Patient encounter procedure 02/23/2025 9:00 AM EDT Routine [facility] COLV[facility] [address] [place] [phone] Wilton Herrmann DO [address] [place] [address] SHILOH COLVIN Start: 02-18-2025 End: 05-20-2025 CBC W Auto Differential panel - Blood COMPLETE BLOOD COUNT AND DIFFERENTIAL Lab Routine 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) Vitamin D deficiency Primary hypercoagulable state (HCC) Expected: 02/18/2025, Expires: 05/20/2025 [facility] Comment on above: Expected: 02/18/2025 , Expires: 05/20/2025 Start: 02-18-2025 End: 05-20-2025 Comprehensive metabolic 2000 panel - Serum or Plasma COMPREHENSIVE METABOLIC PANEL Lab Routine 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) Vitamin D deficiency Primary hypercoagulable state (HCC) Expected: 02/18/2025, Expires: 05/20/2025 [facility] Comment on above: Expected: 02/18/2025 , Expires: 05/20/2025 Start: 02-16-2025 End: 02-16-2025 Patient encounter procedure [facility] of [facility] Start: 02-14-2025 Screening for malign ant neoplasm of cervix [facility] Start: 02-09-2025 End: 08-10-2025 US biophysical profile w non stress test US biophysical profile w non stress test Imaging Routine Third trimester (HHS-HCC) 28 weeks gestation of (HHS-HCC) Anemia complicating childbirth (HHS-HCC) Anticoagulant long-term use Antiphospholipid antibody positive Blood pressure elevated without history of HTN Coagulation defect, unspecified (HHS-HCC) Expected: 02/09/2025 (Approximate), Expires: 08/10/2025 [facility] Comment on above: Expected: 02/09/2025 (Approximate), Expires: 08/10/2025 Start: 02-09-2025 End: 06-12-2025 US for US OB follow up transabdominal approach Imaging Routine Third trimester (HHS-HCC) 28 weeks gestation of (HHS-HCC) Anemia complicating childbirth (HHS-HCC) Anticoagulant long-term use Antiphospholipid antibody positive Blood pressure elevated without history of HTN Coagulation defect, unspecified (HHS-HCC) Expected: 02/09/2025, Expires: 06/12/2025 [facility] Comment on above: Expected: 02/09/2025 , Expires: 06/12/2025 Start: 02-09-2025 End: 02-09-2025 Patient encounter procedure 02/09/2025 10:30 AM EDT Routine [facility] [address] [place] [phone] Wilton Herrmann, DO [address] [place] [address] [facility] Start: 02-06-2025 End: 02-06-2025 Telemedicine consultation with patient 02/06/2025 2:00 PM EDT Telemedicine Maternal- Medicine at [facility] [address] [facility] [place] [phone] Mukul Noyola MD [address] [facility], [address] [place] [address], [place] [address] [facility] at [facility] Start: 02-05-2025 End: 02-05-2025 Patient encounter procedure 02/05/2025 1:00 PM EDT Appointment [facility] [address] [place] [address] [facility] Start: 02-01-2025 End: 01-01-2026 Echo complete W/O contrast Echo complete W/O contrast Echocardiography Routine 22 weeks gestation of Antiphospholipid syndrome complicating , antepartum Multigravida of advanced maternal age in second trimester Expected: 02/01/2025 (Approximate), Expires: 01/01/2026 [facility] Work Phone: Comment on above: Expected: 02/01/2025 (Approximate), Expires: 01/01/2026 Start: 01-19-2025 End: 01-19-2025 Patient encounter procedure 01/19/2025 9:00 AM EDT Routine [facility] [address] [place] [phone] Wilton Herrmann, DO [address] [place] [address] [facility] Start: 01-13-2025 End: 01-13-2025 Telemedicine consultation with patient 01/13/2025 10:00 AM EDT Telemedicine Maternal- Medicine at [facility] [address] [place] [address] Roxana Mays PA-C [address] [place] [address] M[facility]- Medicine at [facility] Start: 01-05-2025 End: 01-05-2025 Patient encounter procedure 01/05/2025 2:40 PM EDT Routine SHILOH COLVIN [address] [place] [phone] Wilton Herrmann DO [address] [place] [address] SHILOH [place] [facility] Start: 01-05-2025 End: 01-05-2026 12 lead ECG ECG 12 lead unit performed ECG Routine Thyroid disease Gestational diabetes mellitus (GDM), antepartum, gestational diabetes method of control unspecified (HHS-HCC) Multigravida of advanced maternal age in second trimester (HHS-HCC) Lightheaded Dizziness Expected: 01/05/2025 (Approximate), Expires: 01/05/2026 [facility] Comment on above: Expected: 01/05/2025 (Approximate), Expires: 01/05/2026 Start: 01-05-2025 End: 01-05-2027 Echocardiogram 2D complete Echocardiogram 2D complete Echocardiography Routine Thyroid disease Gestational diabetes mellitus (GDM), antepartum, gestational diabetes method of control unspecified (HHS-HCC) Multigravida of advanced maternal age in second trimester (HHS-HCC) Lightheaded Dizziness Expected: 01/05/2025 (Approximate), Expires: 01/05/2027 [facility] Work Phone: Comment on above: Expected: 01/05/2025 (Approximate), Expires: 01/05/2027 Start: 01-01-2025 End: 01-01-2025 Telemedicine consultation with patient 01/01/2025 2:30 PM EDT Telemedicine [facility] [place] [address] [facility] [address] [place] [phone] Mukul Noyola MD [address] [facility], [address] [place] [address] [facility] Start: 01-01-2025 End: 01-01-2026 US MFM with or without consult US MFM with or without consult Imaging Routine Multigravida of advanced maternal age in second trimester Antiphospholipid syndrome complicating , antepartum Gestational diabetes mellitus (GDM) in second trimester controlled on oral hypoglycemic drug Insulin controlled gestational diabetes mellitus (GDM) in second trimester AMA (advanced maternal age) multigravida 35+, second trimester Hypothyroidism, unspecified type Expected: 01/01/2025, Expires: 01/01/2026 [facility] Work Phone: Comment on above: Expected: 01/01/2025 , Expires: 01/01/2026 Start: 01-01-2025 End: 01-01-2025 Patient encounter procedure 01/01/2025 1:00 PM EDT Appointment [facility] [place] [address] [facility] [address] [place] [phone] [facility] Start: 12-29-2024 Influenza vaccination [facility] Start: 12-24-2024 End: 03-25-2025 CBC W Auto Differential panel - Blood COMPLETE BLOOD COUNT AND DIFFERENTIAL Lab Routine Primary hypercoagulable state (HCC) CVA, old, speech/language deficit Cerebral hyponatremia Personal history of TIA (transient ischemic attack) Expected: 12/24/2024, Expires: 03/25/2025 [facility] Work Phone: Comment on above: Expected: 12/24/2024 , Expires: 03/25/2025 Start: 12-24-2024 End: 03-25-2025 Cobalamin (Vitamin B12) [Mass/volume] in Serum or Plasma VITAMIN B12 Lab Routine Primary hypercoagulable state (HCC) CVA, old, speech/language deficit Cerebral hyponatremia Personal history of TIA (transient ischemic attack) Expected: 12/24/2024, Expires: 03/25/2025 [facility] Comment on above: Expected: 12/24/2024 , Expires: 03/25/2025 Start: 12-24-2024 End: 03-25-2025 Comprehensive metabolic 2000 panel - Serum or Plasma COMPREHENSIVE METABOLIC PANEL Lab Routine Primary hypercoagulable state (HCC) CVA, old, speech/language deficit Cerebral hyponatremia Personal history of TIA (transient ischemic attack) Expected: 12/24/2024, Expires: 03/25/2025 [facility] Comment on above: Expected: 12/24/2024 , Expires: 03/25/2025 Start: 12-24-2024 End: 03-25-2025 Ferritin [Mass/volume] in Serum or Plasma FERRITIN Lab Routine Primary hypercoagulable state (HCC) CVA, old, speech/language deficit Cerebral hyponatremia Personal history of TIA (transient ischemic attack) Expected: 12/24/2024, Expires: 03/25/2025 [facility] Comment on above: Expected: 12/24/2024 , Expires: 03/25/2025 Start: 12-24-2024 End: 03-25-2025 Iron and Iron binding capacity panel - Serum or Plasma IRON AND TIBC Lab Routine Primary hypercoagulable state (HCC) CVA, old, speech/language deficit Cerebral hyponatremia Personal history of TIA (transient ischemic attack) Expected: 12/24/2024, Expires: 03/25/2025 [facility] Comment on above: Expected: 12/24/2024 , Expires: 03/25/2025 Start: 12-23-2024 End: 03-24-2025 25-hydroxyvitamin D3 [Mass/volume] in Serum or Plasma VITAMIN D 25 HYDROXY Lab Routine 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) Vitamin D deficiency Expected: 12/23/2024, Expires: 03/24/2025 [facility] Work Phone: Comment on above: Expected: 12/23/2024 , Expires: 03/24/2025 Start: 12-22-2024 End: 12-22-2024 Follow-up encounter 12/22/2024 1:30 PM EDT Visit (SP) Office Hematology/Oncology [address] [address] Katherine Negrete AMPOULE FILLER AND SEALER.BILINGUAL INTERPRETER [address] [address] 8 week follow up lab Hematology/Oncology Comment on above: 8 week follow up lab Start: 12-22-2024 End: 12-22-2024 Patient encounter procedure 12/22/2024 1:15 PM EDT Office Visit [facility] [address] [address] 8 week follow up lab [facility] Comment on above: 8 week follow up lab Start: 12-17-2024 End: 12-17-2024 Telemedicine consultation with patient 12/17/2024 1:30 PM EDT Telemedicine Maternal- Medicine at [facility] [address] [place] [phone] Alisa Saba, AMPOULE FILLER AND SEALER-BILINGUAL INTERPRETER [address] [place] [address] M[facility]- Medicine at [facility] Start: 12-11-2024 End: 12-11-2024 Patient encounter procedure 12/11/2024 9:10 AM EDT Routine SHILOH COLVIN [address] [place] [phone] Wilton Herrmann DO [address] [place] [address] SHLIOH COLVIN Start: 12-03-2024 End: 12-03-2024 Telemedicine consultation with patient 12/03/2024 2:00 PM EDT Telemedicine Maternal- Medicine at [facility] [address] [place] [phone] Alisa Saba, AMPOULE FILLER AND SEALER-BILINGUAL INTERPRETER [address] [facility] [address] M[facility]- Medicine at [facility] Start: 11-20-2024 End: 01-21-2025 Alpha fetoprotein, maternal Alpha fetoprotein, maternal Lab Routine Second trimester ([facility]) Expected: 11/20/2024 (Approximate), Expires: 01/21/2025 [facility] Comment on above: Expected: 11/20/2024 (Approximate), Expires: 01/21/2025 Start: 11-20-2024 End: 11-20-2024 Patient encounter procedure 11/20/2024 10:10 AM EDT Routine [facility] [address] [place] [phone] Wilton Herrmann DO [address] [facility] [place] [address] [facility] Start: 11-19-2024 End: 11-19-2024 ambulatory 11/19/2024 9:30 AM EDT Support Visit [facility]- [facility] at [facility] [address] [facility] [place] [address] Lorena Enciso, RN [address] [facility], [address] [place] [address] Stephanie Quiros, Cindy Uribe, RD [address] [facility] [place], [address] [place] [address] Maternal- Medicine at [facility] Start: 11-12-2024 End: 10-13-2025 US MFM with or without consult US MFM with or without consult Imaging Routine Gestational diabetes mellitus (GDM), antepartum, gestational diabetes method of control unspecified Expected: 11/12/2024 (Approximate), Expires: 10/13/2025 [facility] Work Phone: Comment on above: Expected: 11/12/2024 (Approximate), Expires: 10/13/2025 Start: 10-30-2024 End: 10-30-2024 Patient encounter procedure 10/30/2024 10:40 AM EDT Routine [facility] [address] [place] [phone] Wilton Herrmann, [address] [place] [address] [facility] Start: 10-30-2024 End: 10-30-2024 Patient encounter procedure 10/30/2024 9:30 AM EDT Routine [facility] [address] [place] [phone] Wilton Herrmann, [address] [place] [address] Arrived [facility] Comment on above: Arrived Start: 10-28-2024 End: 10-28-2024 Follow-up encounter 10/28/2024 2:30 PM EDT Visit (SP) Office Hematology/Oncology [address] [facility] [place] [place] [address] Katherine Negrete APRN.BILINGUAL INTERPRETER [address] [place] [address] 3 month follow up Hematology/Oncology Comment on above: 3 month follow up Start: 10-28-2024 End: 10-28-2024 Patient encounter procedure 10/28/2024 2:15 PM EDT Office Visit [facility] [address] [place] [address] labs - patient prefers to come same day [facility] Comment on above: labs - patient prefe rs to come same day Start: 10-27-2024 End: 10-27-2024 Patient encounter procedure 10/27/2024 9:20 AM EDT Office Visit [facility] [address] [place] [address] Wilton Herrmann, [address] [facility] [address] [place], [place] [phone] [facility] Start: 10-20-2024 End: 10-20-2024 Professional / ancillary services management 10/20/2024 1:00 PM EDT Ancillary Procedure [facility] [address] [facility] [place] [address] [facility] [facility] Start: 10-10-2024 End: 10-10-2024 Follow-up encounter 10/10/2024 10:40 AM EDT Visit (SP) Office Hematology/Oncology [address] [address] Kristofer Calix MD [address] [address] 3 month follow up Hematology/Oncology Comment on above: 3 month follow up Start: 10-10-2024 End: 10-10-2024 Patient encounter procedure 10/10/2024 10:15 AM EDT Office Visit [facility] [address] [place] [address] [place] [address] labs - patient prefers to come same day [facility] Comment on above: labs - patient prefe rs to come same day Start: 10-02-2024 End: 10-02-2025 ABO/Rh ABO/Rh Lab Routine Missed menses , unspecified gestational age Expected: 10/02/2024 (Approximate), Expires: 10/02/2025 [facility] Comment on above: Expected: 10/02/2024 (Approximate), Expires: 10/02/2025 Start: 10-02-2024 End: 10-02-2025 Blood type and Indirect antibody screen panel - Blood Type and screen Lab Routine Missed menses , unspecified gestational age Expected: 10/02/2024 (Approximate), Expires: 10/02/2025 [facility] Work Phone: Comment on above: Expected: 10/02/2024 (Approximate), Expires: 10/02/2025 Start: 10-02-2024 End: 10-02-2025 Drugs of abuse panel - Urine by Screen method Rapid drug screen, urine Lab Routine , unspecified gestational age Encounter for supervision of normal first in first trimester Expected: 10/02/2024 (Approximate), Expires: 10/02/2025 [facility] Comment on above: Expected: 10/02/2024 (Approximate), Expires: 10/02/2025 Start: 10-02-2024 End: 10-02-2024 ambulatory 10/02/2024 1:00 PM EDT Initial [facility] [address] [place] [phone] [facility] Start: 10-02-2024 End: 10-02-2024 Professional / ancillary services management 10/02/2024 12:30 PM EDT Ancillary Procedure [facility] [address] [place] [id number] [facility] Start: 08-27-2024 End: 08-27-2024 Follow-up encounter 08/27/2024 2:00 PM EDT Visit (SP) Office Hematology/Oncology [address] [address] Kristofer Calix MD [address] [address] 3 month follow up Hematology/Oncology Comment on above: 3 month follow up Start: 08-27-2024 End: 08-27-2024 Patient encounter procedure 08/27/2024 1:45 PM EDT Office Visit [facility] [address] [place] [address] labs - patient prefers to come same day [facility] Comment on above: labs - patient prefe rs to come same day Start: 08-26-2024 End: 11-25-2024 25-hydroxyvitamin D3 [Mass/volume] in Serum or Plasma VITAMIN D 25 HYDROXY Lab Routine 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 Vitamin D deficiency Expected: 08/26/2024, Expires: 11/25/2024 [facility] Comment on above: Expected: 08/26/2024 , Expires: 11/25/2024 Start: 08-26-2024 End: 11-25-2024 CBC W Auto Differential panel - Blood COMPLETE BLOOD COUNT AND DIFFERENTIAL Lab Routine 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 Vitamin D deficiency Expected: 08/26/2024, Expires: 11/25/2024 [facility] Work Phone: Comment on above: Expected: 08/26/2024 , Expires: 11/25/2024 Start: 08-26-2024 End: 11-25-2024 Cobalamin (Vitamin B12) [Mass/volume] in Serum or Plasma VITAMIN B12 Lab Routine 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 Vitamin D deficiency Expected: 08/26/2024, Expires: 11/25/2024 [facility] Comment on above: Expected: 08/26/2024 , Expires: 11/25/2024 Start: 08-26-2024 End: 11-25-2024 Comprehensive metabolic 2000 panel - Serum or Plasma COMPREHENSIVE METABOLIC PANEL Lab Routine 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 Vitamin D deficiency Expected: 08/26/2024, Expires: 11/25/2024 [facility] Comment on above: Expected: 08/26/2024 , Expires: 11/25/2024 Start: 08-26-2024 End: 11-25-2024 Ferritin [Mass/volume] in Serum or Plasma FERRITIN Lab Routine 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 Vitamin D deficiency Expected: 08/26/2024, Expires: 11/25/2024 [facility] Comment on above: Expected: 08/26/2024 , Expires: 11/25/2024 Start: 08-26-2024 End: 11-25-2024 Iron and Iron binding capacity panel - Serum or Plasma IRON AND TIBC Lab Routine 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 Vitamin D deficiency Expected: 08/26/2024, Expires: 11/25/2024 [facility] Comment on above: Expected: 08/26/2024 , Expires: 11/25/2024 Start: 08-26-2024 End: 11-25-2024 Thyrotropin [Units/volume] in Serum or Plasma THYROID STIMULATING HORMONE Lab Routine 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 [facility] Start: 07-03-2024 DTaP/Tdap/Td vaccine (2 - Td or Tdap) DTaP/Tdap/Td vaccine (2 - Td or Tdap) [facility] Start: 07-03-2024 Urine microalbumin profile [facility] Start: 06-23-2024 End: 06-23-2025 US Pelvis US Pelvis w/ TV Imaging Routine Vaginal bleeding Vaginal discharge Pelvic pain in female Expected: 06/23/2024, Expires: 06/23/2025 [facility] Comment on above: Expected: 06/23/2024 , Expires: 06/23/2025 Start: 06-02-2024 End: 06-02-2024 Patient encounter procedure 06/02/2024 11:20 AM EST Office Visit [facility] [address] [place] [phone] Wilton Herrmann, DO [address] [place] [address] [facility] Start: 05-21-2024 End: 05-21-2024 Follow-up encounter 05/21/2024 2:20 PM EST Visit (SP) Office Hematology/Oncology [address] [address] Kristofer Calix MD [address] [address] 3 month follow up with lab Hematology/Oncology Comment on above: 3 month follow up wi lab Start: 05-21-2024 End: 05-21-2024 Patient encounter procedure 05/21/2024 2:00 PM EST Office Visit [facility] [address] [place] [address] [place] [address] 3 month follow up with lab [facility] Comment on above: 3 month follow up [facility] Start: 05-06-2024 End: 05-06-2025 US for [facility] Work Phone: Comment on above: Expected: 05/06/2024 , Expires: 05/06/2025 Start: 05-06-2024 End: 05-06-2024 Patient encounter procedure 05/06/2024 1:50 PM EST Routine [facility] [address] [place] [phone] Wilton Herrmann, DO [address] [place] [address] [facility] Start: 04-09-2024 End: 04-09-2024 Follow-up encounter Hematology/Oncology Comment on above: 3 month follow up wi lab Start: 04-09-2024 End: 04-09-2024 Patient encounter procedure [facility] Comment on above: 3 month follow up [facility] Start: 04-04-2024 End: 04-04-2025 ABO/Rh ABO/Rh Lab Routine Missed menses , unspecified gestational age Expected: 04/04/2024 (Approximate), Expires: 04/04/2025 [facility] Comment on above: Expected: 04/04/2024 (Approximate), Expires: 04/04/2025 Start: 04-04-2024 End: 04-04-2025 Blood type and Indirect antibody screen panel - Blood Type and screen Lab Routine Missed menses , unspecified gestational age Expected: 04/04/2024 (Approximate), Expires: 04/04/2025 [facility] Work Phone: Comment on above: Expected: 04/04/2024 (Approximate), Expires: 04/04/2025 Start: 04-04-2024 End: 04-04-2025 Drugs of abuse panel - Urine by Screen method Rapid drug screen, urine Lab Routine , unspecified gestational age Encounter for supervision of normal first in first trimester Expected: 04/04/2024 (Approximate), Expires: 04/04/2025 [facility] Comment on above: Expected: 04/04/2024 (Approximate), Expires: 04/04/2025 Start: 04-04-2024 End: 04-04-2025 US Pelvis transvaginal US OB transvaginal Imaging Routine Missed menses Expected: 04/04/2024 (Approximate), Expires: 04/04/2025 [facility] Comment on above: Expected: 04/04/2024 (Approximate), Expires: 04/04/2025 Start: 04-02-2024 End: 07-02-2024 25-hydroxyvitamin D3 [Mass/volume] in Serum or Plasma VITAMIN D 25 HYDROXY Lab Routine Iron deficiency anemia secondary to blood loss (chronic) Vitamin D deficiency Malaise and fatigue Expected: 04/02/2024 (Approximate), Expires: 07/02/2024 [facility] Comment on above: Expected: 04/02/2024 (Approximate), Expires: 07/02/2024 Start: 04-02-2024 End: 01-01-2025 CBC W Auto Differential panel - Blood COMPLETE BLOOD COUNT AND DIFFERENTIAL Lab Routine Iron deficiency anemia secondary to blood loss (chronic) Vitamin D deficiency Malaise and fatigue Expected: 04/02/2024 (Approximate), Expires: 01/01/2025 [facility] Comment on above: Expected: 04/02/2024 (Approximate), Expires: 01/01/2025 Start: 04-02-2024 End: 01-01-2025 Cobalamin (Vitamin B12) [Mass/volume] in Serum or Plasma VITAMIN B12 Lab Routine Iron deficiency anemia secondary to blood loss (chronic) Vitamin D deficiency Malaise and fatigue Expected: 04/02/2024 (Approximate), Expires: 01/01/2025 [facility] Comment on above: Expected: 04/02/2024 (Approximate), Expires: 01/01/2025 Start: 04-02-2024 End: 01-01-2025 Comprehensive metabolic 2000 panel - Serum or Plasma COMPREHENSIVE METABOLIC PANEL Lab Routine Iron deficiency anemia secondary to blood loss (chronic) Vitamin D deficiency Malaise and fatigue Expected: 04/02/2024 (Approximate), Expires: 01/01/2025 [facility] Comment on above: Expected: 04/02/2024 (Approximate), Expires: 01/01/2025 Start: 04-02-2024 End: 01-01-2025 Ferritin [Mass/volume] in Serum or Plasma FERRITIN Lab Routine Iron deficiency anemia secondary to blood loss (chronic) Vitamin D deficiency Malaise and fatigue Expected: 04/02/2024 (Approximate), Expires: 01/01/2025 [facility] Comment on above: Expected: 04/02/2024 (Approximate), Expires: 01/01/2025 Start: 04-02-2024 End: 01-01-2025 Folate [Mass/volume] in Serum or Plasma FOLATE, SERUM Lab Routine Iron deficiency anemia secondary to blood loss (chronic) Vitamin D deficiency Malaise and fatigue Expected: 04/02/2024 (Approximate), Expires: 01/01/2025 [facility] Comment on above: Expected: 04/02/2024 (Approximate), Expires: 01/01/2025 Start: 04-02-2024 End: 01-01-2025 Iron and Iron binding capacity panel - Serum or Plasma IRON AND TIBC Lab Routine Iron deficiency anemia secondary to blood loss (chronic) Vitamin D deficiency Malaise and fatigue Expected: 04/02/2024 (Approximate), Expires: 01/01/2025 [facility] Comment on above: Expected: 04/02/2024 (Approximate), Expires: 01/01/2025 Start: 04-02-2024 End: 07-02-2024 Thyrotropin [Units/volume] in Serum or Plasma THYROID STIMULATING HORMONE Lab Routine Iron deficiency anemia secondary to blood loss (chronic) Vitamin D deficiency Malaise and fatigue Expected: 04/02/2024 (Approximate), Expires: 07/02/2024 [facility] Work Phone: Comment on above: Expected: 04/02/2024 (Approximate), Expires: 07/02/2024 Start: 01-05-2024 End: 01-01-2025 CBC W Auto Differential panel - Blood COMPLETE BLOOD COUNT AND DIFFERENTIAL Lab Routine Iron deficiency anemia secondary to blood loss (chronic) Vitamin D deficiency Malaise and fatigue Expected: 01/05/2024 (Approximate), Expires: 01/01/2025 [facility] Comment on above: Expected: 01/05/2024 (Approximate), Expires: 01/01/2025 Start: 01-05-2024 End: 01-01-2025 Comprehensive metabolic 2000 panel - Serum or Plasma COMPREHENSIVE METABOLIC PANEL Lab Routine Iron deficiency anemia secondary to blood loss (chronic) Vitamin D deficiency Malaise and fatigue Expected: 01/05/2024 (Approximate), Expires: 01/01/2025 [facility] Comment on above: Expected: 01/05/2024 (Approximate), Expires: 01/01/2025 Start: 01-02-2024 End: 01-02-2024 Follow-up encounter 01/02/2024 1:45 PM EDT Visit (SP) Office [facility]ology[facility] [address] [place] [place] [address] Kristofer Calix MD [address] [place] [address] 8 WEEK FOLLOW UP Hematology/Oncology Comment on above: 8 WEEK FOLLOW UP Start: 01-02-2024 End: 01-02-2024 Patient encounter procedure 01/02/2024 1:30 PM EDT Office Visit [facility] [address] [facility] [place] [address] 8 WEEK FOLLOW UP [facility] Comment on above: 8 WEEK FOLLOW UP Start: 12-30-2023 Covid-19 Vaccine ( season) Covid-19 Vaccine () [facility] Start: 12-30-2023 Covid-19 Vaccine ( season) Covid-19 Vaccine () [facility] Start: 12-30-2023 Influenza vaccination [facility] Start: 11-29-2023 End: 11-29-2023 ambulatory 11/29/2023 1:30 PM EDT Infusion Center Hematology/Oncology [address] [address] [facility]ology[facility]Oncology Comment on above: [facility] [address] Start: 11-22-2023 End: 11-22-2023 ambulatory 11/22/2023 1:30 PM EDT Infusion Center Hematology/Oncology [address] [place] [address] [place] [address] [facility] [address] Hematology/Oncology Comment on above: [facility] [address] Start: 11-15-2023 End: 11-15-2023 ambulatory 11/15/2023 1:30 PM EDT Infusion Center Hematology/Oncology [address] [address] [facility] [address] Hematology/Oncology Comment on above: [facility] [address] Start: 09-13-2023 End: 12-13-2023 25-hydroxyvitamin D3 [Mass/volume] in Serum or Plasma VITAMIN D 25 HYDROXY Lab Routine Vitamin D deficiency 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) Expected: 09/13/2023 (Approximate), Expires: 12/13/2023 [facility] Work Phone: Comment on above: Expected: 09/13/2023 (Approximate), Expires: 12/13/2023 Start: 09-13-2023 End: 12-13-2023 Calcium.ionized [Moles/volume] in Blood CALCIUM IONIZED BLOOD Lab Routine Vitamin D deficiency 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) Expected: 09/13/2023 (Approximate), Expires: 12/13/2023 [facility] Work Phone: Comment on above: Expected: 09/13/2023 (Approximate), Expires: 12/13/2023 Start: 09-13-2023 End: 06-15-2024 CBC W Auto Differential panel - Blood CBC + DIFF Lab Routine Vitamin D deficiency 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) Expected: 09/13/2023 (Approximate), Expires: 06/15/2024 [facility] Work Phone: Comment on above: Expected: 09/13/2023 (Approximate), Expires: 06/15/2024 Start: 09-13-2023 End: 06-15-2024 Cobalamin (Vitamin B12) [Mass/volume] in Serum or Plasma VITAMIN B12 BLOOD Lab Routine Vitamin D deficiency 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) Expected: 09/13/2023 (Approximate), Expires: 06/15/2024 [facility] Work Phone: Comment on above: Expected: 09/13/2023 (Approximate), Expires: 06/15/2024 Start: 09-13-2023 End: 06-15-2024 Comprehensive metabolic 2000 panel - Serum or Plasma COMP METABOLIC PANEL Lab Routine Vitamin D deficiency 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) Expected: 09/13/2023 (Approximate), Expires: 06/15/2024 [facility] Work Phone: Comment on above: Expected: 09/13/2023 (Approximate), Expires: 06/15/2024 Start: 09-13-2023 End: 06-15-2024 Ferritin [Mass/volume] in Serum or Plasma FERRITIN BLD Lab Routine Vitamin D deficiency 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) Expected: 09/13/2023 (Approximate), Expires: 06/15/2024 [facility] Work Phone: Comment on above: Expected: 09/13/2023 (Approximate), Expires: 06/15/2024 Start: 09-13-2023 End: 06-15-2024 Folate [Mass/volume] in Serum or Plasma FOLATE SERUM Lab Routine Vitamin D deficiency 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) Expected: 09/13/2023 (Approximate), Expires: 06/15/2024 [facility] Work Phone: Comment on above: Expected: 09/13/2023 (Approximate), Expires: 06/15/2024 Start: 09-13-2023 End: 06-15-2024 Iron and Iron binding capacity panel - Serum or Plasma IRON + TIBC Lab Routine Vitamin D deficiency 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) Expected: 09/13/2023 (Approximate), Expires: 06/15/2024 [facility] Work Phone: Comment on above: Expected: 09/13/2023 (Approximate), Expires: 06/15/2024 Start: 09-13-2023 End: 12-13-2023 Parathyrin.intact [Mass/volume] in Serum or Plasma PTH INTACT BLD Lab Routine Vitamin D deficiency 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) Expected: 09/13/2023 (Approximate), Expires: 12/13/2023 [facility] Work Phone: Comment on above: Expected: 09/13/2023 (Approximate), Expires: 12/13/2023 Start: 06-15-2023 End: 09-14-2023 25-hydroxyvitamin D3 [Mass/volume] in Serum or Plasma VITAMIN D 25 HYDROXY Lab Routine Vitamin D deficiency Expected: 06/15/2023 (Approximate), Expires: 09/14/2023 [facility] Work Phone: Comment on above: Expected: 06/15/2023 (Approximate), Expires: 09/14/2023 Start: 06-15-2023 End: 09-14-2023 Calcium.ionized [Moles/volume] in Blood CALCIUM IONIZED BLOOD Lab Routine Vitamin D deficiency Hypercalcemia Expected: 06/15/2023 (Approximate), Expires: 09/14/2023 [facility] Work Phone: Comment on above: Expected: 06/15/2023 (Approximate), Expires: 09/14/2023 Start: 06-15-2023 End: 06-12-2024 CBC W Auto Differential panel - Blood CBC + DIFF Lab Routine Iron deficiency anemia secondary to blood loss (chronic) Expected: 06/15/2023 (Approximate), Expires: 06/12/2024 [facility] Work Phone: Comment on above: Expected: 06/15/2023 (Approximate), Expires: 06/12/2024 Start: 06-15-2023 End: 06-12-2024 Cobalamin (Vitamin B12) [Mass/volume] in Serum or Plasma VITAMIN B12 BLOOD Lab Routine Iron deficiency anemia secondary to blood loss (chronic) Expected: 06/15/2023 (Approximate), Expires: 06/12/2024 [facility] Work Phone: Comment on above: Expected: 06/15/2023 (Approximate), Expires: 06/12/2024 Start: 06-15-2023 End: 06-12-2024 Comprehensive metabolic 2000 panel - Serum or Plasma COMP METABOLIC PANEL Lab Routine Iron deficiency anemia secondary to blood loss (chronic) Expected: 06/15/2023 (Approximate), Expires: 06/12/2024 [facility] Work Phone: Comment on above: Expected: 06/15/2023 (Approximate), Expires: 06/12/2024 Start: 06-15-2023 End: 06-12-2024 Ferritin [Mass/volume] in Serum or Plasma FERRITIN BLD Lab Routine Iron deficiency anemia secondary to blood loss (chronic) Expected: 06/15/2023 (Approximate), Expires: 06/12/2024 [facility] Work Phone: Comment on above: Expected: 06/15/2023 (Approximate), Expires: 06/12/2024 Start: 06-15-2023 End: 06-12-2024 Folate [Mass/volume] in Serum or Plasma FOLATE SERUM Lab Routine Iron deficiency anemia secondary to blood loss (chronic) Expected: 06/15/2023 (Approximate), Expires: 06/12/2024 [facility] Work Phone: Comment on above: Expected: 06/15/2023 (Approximate), Expires: 06/12/2024 Start: 06-15-2023 End: 06-12-2024 Iron and Iron binding capacity panel - Serum or Plasma IRON + TIBC Lab Routine Iron deficiency anemia secondary to blood loss (chronic) Expected: 06/15/2023 (Approximate), Expires: 06/12/2024 [facility] Work Phone: Comment on above: Expected: 06/15/2023 (Approximate), Expires: 06/12/2024 Start: 06-15-2023 End: 09-14-2023 PTH, INTACT (WITHOUT CALCIUM) PTH, INTACT (WITHOUT CALCIUM) Lab Routine Vitamin D deficiency Hypercalcemia Expected: 06/15/2023 (Approximate), Expires: 09/14/2023 [facility] Work Phone: Comment on above: Expected: 06/15/2023 (Approximate), Expires: 09/14/2023 Start: 06-15-2023 End: 09-14-2023 Thyrotropin [Units/volume] in Serum or Plasma TSH BLD Lab Routine Malaise and fatigue Expected: 06/15/2023 (Approximate), Expires: 09/14/2023 [facility] Work Phone: Comment on above: Expected: 06/15/2023 (Approximate), Expires: 09/14/2023 Start: 06-14-2023 End: 09-13-2023 25-hydroxyvitamin D3 [Mass/volume] in Serum or Plasma VITAMIN D 25 HYDROXY Lab Routine Hypercalcemia Vitamin D deficiency Expected: 06/14/2023 (Approximate), Expires: 09/13/2023 [facility] Work Phone: Comment on above: Expected: 06/14/2023 (Approximate), Expires: 09/13/2023 Start: 06-14-2023 End: 09-13-2023 Calcium.ionized [Moles/volume] in Blood CALCIUM IONIZED BLOOD Lab Routine Hypercalcemia Vitamin D deficiency Expected: 06/14/2023 (Approximate), Expires: 09/13/2023 [facility] Work Phone: Comment on above: Expected: 06/14/2023 (Approximate), Expires: 09/13/2023 Start: 06-14-2023 End: 09-13-2023 PTH, INTACT (WITHOUT CALCIUM) PTH, INTACT (WITHOUT CALCIUM) Lab Routine Hypercalcemia Vitamin D deficiency Expected: 06/14/2023 (Approximate), Expires: 09/13/2023 [facility] Work Phone: Comment on above: Expected: 06/14/2023 (Approximate), Expires: 09/13/2023 Start: 06-14-2023 End: 09-13-2023 Thyrotropin [Units/volume] in Serum or Plasma TSH BLD Lab Routine Hypercalcemia Malaise and fatigue Expected: 06/14/2023 (Approximate), Expires: 09/13/2023 [facility] Work Phone: Comment on above: Expected: 06/14/2023 (Approximate), Expires: 09/13/2023 Start: 05-14-2023 End: 03-19-2024 CBC W Auto Differential panel - Blood CBC + DIFF Lab Routine Primary hypercoagulable state (HCC) Iron deficiency anemia secondary to blood loss (chronic) Vitamin D deficiency CVA, old, 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) Expected: 05/14/2023 (Approximate), Expires: 03/19/2024 [facility] Work Phone: Comment on above: Expected: 05/14/2023 (Approximate), Expires: 03/19/2024 Start: 05-14-2023 End: 03-19-2024 Cobalamin (Vitamin B12) [Mass/volume] in Serum or Plasma VITAMIN B12 BLOOD Lab Routine Primary hypercoagulable state (HCC) Iron deficiency anemia secondary to blood loss (chronic) Vitamin D deficiency CVA, old, 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) Expected: 05/14/2023 (Approximate), Expires: 03/19/2024 [facility] Work Phone: Comment on above: Expected: 05/14/2023 (Approximate), Expires: 03/19/2024 Start: 05-14-2023 End: 03-19-2024 Comprehensive metabolic 2000 panel - Serum or Plasma COMP METABOLIC PANEL Lab Routine Primary hypercoagulable state (HCC) Iron deficiency anemia secondary to blood loss (chronic) Vitamin D deficiency CVA, old, 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) Expected: 05/14/2023 (Approximate), Expires: 03/19/2024 [facility] Work Phone: Comment on above: Expected: 05/14/2023 (Approximate), Expires: 03/19/2024 Start: 05-14-2023 End: 03-19-2024 Ferritin [Mass/volume] in Serum or Plasma FERRITIN BLD Lab Routine Primary hypercoagulable state (HCC) Iron deficiency anemia secondary to blood loss (chronic) Vitamin D deficiency CVA, old, 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) Expected: 05/14/2023 (Approximate), Expires: 03/19/2024 [facility] Work Phone: Comment on above: Expected: 05/14/2023 (Approximate), Expires: 03/19/2024 Start: 05-14-2023 End: 03-19-2024 Folate [Mass/volume] in Serum or Plasma FOLATE SERUM Lab Routine Primary hypercoagulable state (HCC) Iron deficiency anemia secondary to blood loss (chronic) Vitamin D deficiency CVA, old, 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) Expected: 05/14/2023 (Approximate), Expires: 03/19/2024 [facility] Work Phone: Comment on above: Expected: 05/14/2023 (Approximate), Expires: 03/19/2024 Start: 05-14-2023 End: 03-19-2024 Iron and Iron binding capacity panel - Serum or Plasma IRON + TIBC Lab Routine Primary hypercoagulable state (HCC) Iron deficiency anemia secondary to blood loss (chronic) Vitamin D deficiency CVA, old, 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) Expected: 05/14/2023 (Approximate), Expires: 03/19/2024 [facility] Work Phone: Comment on above: Expected: 05/14/2023 (Approximate), Expires: 03/19/2024 Start: 04-30-2023 Behavioral Health Screening Behavioral Health Screening [facility] Start: 04-30-2023 Depression Assessment Depression Ass essment [facility] Start: 02-16-2023 End: 04-18-2023 25-hydroxyvitamin D3 [Mass/volume] in Serum or Plasma VITAMIN D 25 HYDROXY Lab Routine Primary hypercoagulable state (HCC) Iron deficiency anemia secondary to blood loss (chronic) Vitamin D deficiency Expected: 02/16/2023 (Approximate), Expires: 04/18/2023 [facility] Work Phone: Comment on above: Expected: 02/16/2023 (Approximate), Expires: 04/18/2023 Start: 02-16-2023 End: 12-23-2023 CBC W Auto Differential panel - Blood CBC + DIFF Lab Routine Primary hypercoagulable state (HCC) Iron deficiency anemia secondary to blood loss (chronic) Expected: 02/16/2023 (Approximate), Expires: 12/23/2023 [facility] Work Phone: Comment on above: Expected: 02/16/2023 (Approximate), Expires: 12/23/2023 Start: 02-16-2023 End: 12-23-2023 Cobalamin (Vitamin B12) [Mass/volume] in Serum or Plasma VITAMIN B12 BLOOD Lab Routine Primary hypercoagulable state (HCC) Iron deficiency anemia secondary to blood loss (chronic) Expected: 02/16/2023 (Approximate), Expires: 12/23/2023 [facility] Work Phone: Comment on above: Expected: 02/16/2023 (Approximate), Expires: 12/23/2023 Start: 02-16-2023 End: 12-23-2023 Comprehensive metabolic 2000 panel - Serum or Plasma COMP METABOLIC PANEL Lab Routine Primary hypercoagulable state (HCC) Iron deficiency anemia secondary to blood loss (chronic) Expected: 02/16/2023 (Approximate), Expires: 12/23/2023 [facility] Work Phone: Comment on above: Expected: 02/16/2023 (Approximate), Expires: 12/23/2023 Start: 02-16-2023 End: 12-23-2023 Ferritin [Mass/volume] in Serum or Plasma FERRITIN BLD Lab Routine Primary hypercoagulable state (HCC) Iron deficiency anemia secondary to blood loss (chronic) Expected: 02/16/2023 (Approximate), Expires: 12/23/2023 [facility] Work Phone: Comment on above: Expected: 02/16/2023 (Approximate), Expires: 12/23/2023 Start: 02-16-2023 End: 12-23-2023 Folate [Mass/volume] in Serum or Plasma FOLATE SERUM Lab Routine Primary hypercoagulable state (HCC) Iron deficiency anemia secondary to blood loss (chronic) Expected: 02/16/2023 (Approximate), Expires: 12/23/2023 [facility] Work Phone: Comment on above: Expected: 02/16/2023 (Approximate), Expires: 12/23/2023 Start: 02-16-2023 End: 12-23-2023 Iron and Iron binding capacity panel - Serum or Plasma IRON + TIBC Lab Routine Primary hypercoagulable state (HCC) Iron deficiency anemia secondary to blood loss (chronic) Expected: 02/16/2023 (Approximate), Expires: 12/23/2023 [facility] Work Phone: Comment on above: Expected: 02/16/2023 (Approximate), Expires: 12/23/2023 Start: 12-29-2022 Covid-19 Vaccine ( season) Covid-19 Vaccine () [facility] Start: 12-29-2022 Influenza vaccination C [facility] Start: 12-04-2022 PAP TESTING PAP TESTING [facility] Start: 12-04-2022 Screening for malign ant neoplasm of cervix Pap Testing [facility] Start: 11-28-2022 End: 10-04-2023 CBC W Auto Differential panel - Blood CBC + DIFF Lab Routine Primary hypercoagulable state (HCC) CVA, old, speech/language deficit Cerebral hyponatremia Expected: 11/28/2022 (Approximate), Expires: 10/04/2023 [facility] Work Phone: Comment on above: Expected: 11/28/2022 (Approximate), Expires: 10/04/2023 Start: 11-28-2022 End: 10-04-2023 Cobalamin (Vitamin B12) [Mass/volume] in Serum or Plasma VITAMIN B12 BLOOD Lab Routine Primary hypercoagulable state (HCC) CVA, old, speech/language deficit Cerebral hyponatremia Expected: 11/28/2022 (Approximate), Expires: 10/04/2023 [facility] Work Phone: Comment on above: Expected: 11/28/2022 (Approximate), Expires: 10/04/2023 Start: 11-28-2022 End: 10-04-2023 Comprehensive metabolic 2000 panel - Serum or Plasma COMP METABOLIC PANEL Lab Routine Primary hypercoagulable state (HCC) CVA, old, speech/language deficit Cerebral hyponatremia Expected: 11/28/2022 (Approximate), Expires: 10/04/2023 [facility] Work Phone: Comment on above: Expected: 11/28/2022 (Approximate), Expires: 10/04/2023 Start: 11-28-2022 End: 10-04-2023 Ferritin [Mass/volume] in Serum or Plasma FERRITIN BLD Lab Routine Primary hypercoagulable state (HCC) CVA, old, speech/language deficit Cerebral hyponatremia Expected: 11/28/2022 (Approximate), Expires: 10/04/2023 [facility] Work Phone: Comment on above: Expected: 11/28/2022 (Approximate), Expires: 10/04/2023 Start: 11-28-2022 End: 10-04-2023 Folate [Mass/volume] in Serum or Plasma FOLATE SERUM Lab Routine Primary hypercoagulable state (HCC) CVA, old, speech/language deficit Cerebral hyponatremia Expected: 11/28/2022 (Approximate), Expires: 10/04/2023 [facility] Work Phone: Comment on above: Expected: 11/28/2022 (Approximate), Expires: 10/04/2023 Start: 11-28-2022 End: 10-04-2023 Iron and Iron binding capacity panel - Serum or Plasma IRON + TIBC Lab Routine Primary hypercoagulable state (HCC) CVA, old, speech/language deficit Cerebral hyponatremia Expected: 11/28/2022 (Approximate), Expires: 10/04/2023 [facility] Work Phone: Comment on above: Expected: 11/28/2022 (Approximate), Expires: 10/04/2023 Start: 09-21-2022 End: 07-28-2023 CBC W Auto Differential panel - Blood CBC + DIFF Lab Routine Primary hypercoagulable state (HCC) 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, old, speech/language deficit Expected: 09/21/2022 (Approximate), Expires: 07/28/2023 [facility] Work Phone: Comment on above: Expected: 09/21/2022 (Approximate), Expires: 07/28/2023 Start: 09-21-2022 End: 07-28-2023 Cobalamin (Vitamin B12) [Mass/volume] in Serum or Plasma VITAMIN B12 BLOOD Lab Routine Primary hypercoagulable state (HCC) 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, old, speech/language deficit Expected: 09/21/2022 (Approximate), Expires: 07/28/2023 [facility] Work Phone: Comment on above: Expected: 09/21/2022 (Approximate), Expires: 07/28/2023 Start: 09-21-2022 End: 07-28-2023 Comprehensive metabolic 2000 panel - Serum or Plasma COMP METABOLIC PANEL Lab Routine Primary hypercoagulable state (HCC) 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, old, speech/language deficit Expected: 09/21/2022 (Approximate), Expires: 07/28/2023 [facility] Work Phone: Comment on above: Expected: 09/21/2022 (Approximate), Expires: 07/28/2023 Start: 09-21-2022 End: 07-28-2023 Ferritin [Mass/volume] in Serum or Plasma FERRITIN BLD Lab Routine Primary hypercoagulable state (HCC) 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, old, speech/language deficit Expected: 09/21/2022 (Approximate), Expires: 07/28/2023 [facility] Work Phone: Comment on above: Expected: 09/21/2022 (Approximate), Expires: 07/28/2023 Start: 09-21-2022 End: 07-28-2023 Folate [Mass/volume] in Serum or Plasma FOLATE SERUM Lab Routine Primary hypercoagulable state (HCC) 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, old, speech/language deficit Expected: 09/21/2022 (Approximate), Expires: 07/28/2023 [facility] Work Phone: Comment on above: Expected: 09/21/2022 (Approximate), Expires: 07/28/2023 Start: 09-21-2022 End: 07-28-2023 Iron and Iron binding capacity panel - Serum or Plasma IRON + TIBC Lab Routine Primary hypercoagulable state (HCC) 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, old, speech/language deficit Expected: 09/21/2022 (Approximate), Expires: 07/28/2023 [facility] Work Phone: Comment on above: Expected: 09/21/2022 (Approximate), Expires: 07/28/2023 Start: 04-30-2022 DEPRESSION ASSESSMENT DEPRESSION ASS ESSMENT [facility] Start: 01-30-2022 End: 01-30-2023 Ferritin [Mass/volume] in Serum or Plasma FERRITIN BLD Lab Routine Anemia, unspecified type Expected: 01/30/2022, Expires: 01/30/2023 [facility] Work Phone: Comment on above: Expected: 01/30/2022 , Expires: 01/30/2023 Start: 01-30-2022 End: 01-30-2023 Iron and Iron binding capacity panel - Serum or Plasma IRON + TIBC Lab Routine Anemia, unspecified type Expected: 01/30/2022, Expires: 01/30/2023 [facility] Work Phone: Comment on above: Expected: 01/30/2022 , Expires: 01/30/2023 Start: 12-29-2021 Influenza vaccination C [facility] Start: 12-29-2021 End: 12-29-2021 Patient encounter procedure 12/29/2021 Routine Perinatology [facility] Start: 04-30-2021 DEPRESSION ASSESSMENT DEPRESSION ASS ESSMENT [facility] Start: 02-01-2021 Adult depression screening assessment DEPRESSION SCREENING [facility] Start: 12-04-2020 Screening for malign ant neoplasm of cervix Cervical Cancer Screening [facility] Start: 2020 Diabetes screen Diabetes screen [facility] Start: 10-22-2015 HPV TESTING HPV TESTING [facility] Start: 10-22-2015 Screening for malign ant neoplasm of cervix [facility] Start: 2012 HPV Vaccine (1 - 3-d ose SCDM series) HPV Vaccine (1 - 3-dose SCDM series) [facility] Start: 2006 Screening for malign ant neoplasm of cervix Pap smear [facility] Start: 2004 DTaP,Tdap and Td Vaccines (1 - Tdap) DTaP,Tdap and Td Vaccines (1 - Tdap) [facility] Start: 2004 Hepatitis B Vaccine (1 of 3 - 19+ 3-dose series) Hepatitis B Vaccine (1 of 3 - 19+ 3-dose series) [facility] Start: 10-22-2003 Adult BMI Screening Adult BMI Screen ing [facility] Start: 10-22-2003 Anxiety Screening Anxiety Screening [facility] Start: 10-22-2003 Depression Screening Depression Scre [facility] Start: 10-22-2003 HEPATITIS C SCREENING HEPATITIS C SC REENING [facility] Start: 10-22-2003 Hepatitis C screening B ON [facility] Start: 10-22-2003 HIV SCREENING HIV SCREENING [facility] Start: 10-22-2003 HIV screening HIV Screening [facility] Start: 1997 Depression Screen Depression Screen [facility] Start: 1997 Depression Screening Depression Scre [facility] Start: 1997 Tobacco Screening Tobacco Screening [facility] Start: 1990 COVID-19 VACCINE (#1) COVID-19 VACCI NE (#1) [facility] Start: 1990 COVID-19 VACCINE (1) COVID-19 VACCIN E (1) [facility] Start: 1986 Varicella vaccine (1 of 2 - 2-dose childhood series) Varicella vaccine (1 of 2 - 2-dose childhood series) [facility] Start: 04-22-1986 COVID-19 Vaccine (#1) COVID-19 Vacci ne (#1) [facility] Start: 1985 HEPATITIS B (1 of 3 - 3-dose series) HEPATITIS B (1 of 3 - 3-dose series) [facility] Start: 1985 Hepatitis B Vaccine (1 of 3 - 3-dose series) Hepatitis B Vaccine (1 of 3 - 3-dose series) [facility] End: 11-21-2021 Alpha Fetoprotein, Maternal [facility] Work Phone: Comment on above: Once for 1 Occurrenc es starting 11/21/2021 until 11/21/2021 Bacteria identified in Urine by Culture Urine culture Microbiology Routine Missed menses Ordered: 04/04/2024 [facility] Comment on above: Ordered: 04/04/2024 Bacteria identified in Urine by Culture Urine culture Microbiology Routine Missed menses Ordered: 10/02/2024 [facility] Comment on above: Ordered: 10/02/2024 End: 01-30-2023 CBC W Auto Differential panel - Blood CBC + DIFF Lab Routine Primary hypercoagulable state (HCC) CVA, old, 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) Every 2 months for 6 Occurrences starting 01/30/2022 until 01/30/2023 [facility] Work Phone: Comment on above: Every 2 months for 6 Occurrences starting 01/30/2022 until 01/30/2023 CBC W Auto Different ial panel - Blood CBC and differential Lab Routine Missed menses , unspecified gestational age Ordered: 04/04/2024 [facility] Comment on above: Ordered: 04/04/2024 CBC W Auto Different ial panel - Blood CBC and differential Lab Routine Missed menses , unspecified gestational age Ordered: 10/02/2024 [facility] Comment on above: Ordered: 10/02/2024 CBC W Auto Different ial panel - Blood CBC and differential Lab Routine 28 weeks gestation of ([facility]) Ordered: 02/09/2025 [facility] Work Phone: Comment on above: Ordered: 02/09/2025 CHLAMYDIA TRACHOMATI S (GENITO/STI) CHLAMYDIA TRACHOMATIS (GENITO/STI) Lab Routine Vaginal bleeding Vaginal discharge Ordered: 06/23/2024 [facility] Comment on above: Ordered: 06/23/2024 CHLAMYDIA TRACHOMATI S (GENITO/STI) CHLAMYDIA TRACHOMATIS (GENITO/STI) Lab Routine Vaginal discharge Ordered: 11/20/2024 [facility] Comment on above: Ordered: 11/20/2024 End: 01-30-2023 Comprehensive metabolic 2000 panel - Serum or Plasma COMP METABOLIC PANEL Lab Routine Primary hypercoagulable state (HCC) CVA, old, 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) Every 2 months for 6 Occurrences starting 01/30/2022 until 01/30/2023 [facility] Work Phone: Comment on above: Every 2 months for 6 Occurrences starting 01/30/2022 until 01/30/2023 Hemoglobin A1c/Hemoglobin.total in Blood Hemoglobin A1c Lab Routine Missed menses , unspecified gestational age Ordered: 04/04/2024 [facility] Comment on above: Ordered: 04/04/2024 Hemoglobin A1c/Hemoglobin.total in Blood Hemoglobin A1c Lab Routine Missed menses , unspecified gestational age Ordered: 10/02/2024 [facility] Comment on above: Ordered: 10/02/2024 Hepatitis B virus surface Ag [Presence] in Serum or Plasma by Immunoassay Hepatitis B surface antigen Lab Routine Missed menses , unspecified gestational age Ordered: 04/04/2024 [facility] Comment on above: Ordered: 04/04/2024 Hepatitis B virus surface Ag [Presence] in Serum or Plasma by Immunoassay Hepatitis B surface antigen Lab Routine Missed menses , unspecified gestational age Ordered: 10/02/2024 [facility] Comment on above: Ordered: 10/02/2024 Hepatitis C virus Ab [Presence] in Serum or Plasma by Immunoassay Hepatitis C antibody Lab Routine Missed menses , unspecified gestational age Ordered: 04/04/2024 [facility] Comment on above: Ordered: 04/04/2024 Hepatitis C virus Ab [Presence] in Serum or Plasma by Immunoassay Hepatitis C antibody Lab Routine Missed menses , unspecified gestational age Ordered: 10/02/2024 [facility] Comment on above: Ordered: 10/02/2024 HIV-1/HIV-2 antigen/antibody combination immunoassay HIV-1 and HIV-2 antibodies Lab Routine Missed menses , unspecified gestational age Ordered: 04/04/2024 [facility] Comment on above: Ordered: 04/04/2024 HIV-1/HIV-2 antigen/antibody combination immunoassay HIV-1 and HIV-2 antibodies Lab Routine Missed menses , unspecified gestational age Ordered: 10/02/2024 [facility] Comment on above: Ordered: 10/02/2024 Neisseria gonorrhoea e DNA [Presence] in Unspecified specimen by LELO with probe detection Neisseria gonorrhea DNA probe, direct Lab Routine Vaginal bleeding Vaginal discharge Ordered: 06/23/2024 [facility] Comment on above: Ordered: 06/23/2024 Neisseria gonorrhoea e DNA [Presence] in Unspecified specimen by LELO with probe detection Neisseria gonorrhea DNA probe, direct Lab Routine Vaginal discharge Ordered: 11/20/2024 [facility] Comment on above: Ordered: 11/20/2024 Reagin Ab [Presence] in Serum by RPR RPR Lab Routine Missed menses , unspecified gestational age Ordered: 04/04/2024 [facility] Comment on above: Ordered: 04/04/2024 Reagin Ab [Presence] in Serum by RPR RPR Lab Routine Missed menses , unspecified gestational age Ordered: 10/02/2024 [facility] Comment on above: Ordered: 10/02/2024 Rubella antibody, IgG Rubella an tibody, IgG Lab Routine Missed menses , unspecified gestational age Ordered: 04/04/2024 [facility] Comment on above: Ordered: 04/04/2024 Rubella antibody, IgG Rubella an tibody, IgG Lab Routine Missed menses , unspecified gestational age Ordered: 10/02/2024 [facility] Comment on above: Ordered: 10/02/2024 SURESWAB(R) ADVANCED VAGINITIS PLUS, TMA SURESWAB(R) ADVANCED VAGINITIS PLUS, TMA Pathology and Cytology Routine Vaginal bleeding Vaginal discharge Ordered: 06/23/2024 [facility] Work Phone: Comment on above: Ordered: 06/23/2024 SURESWAB(R) ADVANCED VAGINITIS PLUS, TMA SURESWAB(R) ADVANCED VAGINITIS PLUS, TMA Pathology and Cytology Routine Vaginal discharge Ordered: 11/20/2024 [facility] Work Phone: Comment on above: Ordered: 11/20/2024 Thyrotropin [Units/volume] in Serum or Plasma TSH Lab Routine Hypothyroidism (acquired) ([facility]) Ordered: 04/04/2024 [facility] Comment on above: Ordered: 04/04/2024 Thyrotropin [Units/volume] in Serum or Plasma TSH Lab Routine History of thyroid disease Ordered: 06/02/2024 [facility] Work Phone: Comment on above: Ordered: 06/02/2024 Thyrotropin [Units/volume] in Serum or Plasma TSH Lab Routine Thyroid disease ([facility]) Ordered: 10/02/2024 [facility] Comment on above: Ordered: 10/02/2024 Thyrotropin [Units/volume] in Serum or Plasma TSH Lab Routine Second trimester ([facility]) Thyroid disease Ordered: 12/11/2024 [facility] Work Phone: Comment on above: Ordered: 12/11/2024 UA DIP, URINE (POC) UA DIP, URIN E (POC) Lab Routine Infective urethritis Ordered: 08/01/2021 [facility] Work Phone: Comment on above: Ordered: 08/01/2021 Vitamin D 1,25 dihydroxy Vitamin D 1,25 dihydroxy Lab Routine Low vitamin D level Ordered: 04/04/2024 [facility] Comment on above: Ordered: 04/04/2024 End: 12-03-2025 Vitamin D 25 hydroxy Vitamin D 25 hydroxy Lab Routine Insulin controlled gestational diabetes mellitus (GDM) in second trimester 1 Occurrences starting 12/03/2024 until 12/03/2025 [facility] Work Phone: Comment on above: 1 Occurrences starti ng 12/03/2024 until 12/03/2025 [facility] Immunizations Immunization Date Immunization Notes Care Provider Jamie alfonsosamreen 03-05-2018 influenza virus vaccine, unspecified formulation Kristofer Calix MD Work Phone: [facility] 07-03-2014 tetanus toxoid, reduced diphtheria toxoid, and acellular pertussis vaccine, adsorbed Ma Sand Work Phone: [facility] NEGATED: Highlighted row has not occurred!02-15-2023 influenza virus vaccine, unspecified formulation Penelope CASAS [facility] NEGATED: Highlighted row has not occurred!04-07-2020 influenza virus vaccine, unspecified formulation PERNELL LONGORIA [facility] [place] Payers Date Payer Category Payer Medicaid [id number] 2020 Medicaid [employer] [id number] 2020-Present [phone] [address] [place] [address] Medicaid [id number] 2020 Medicaid [id number] [id number] 1985 Unknown [id number] 2.16.840.1.065526.3.579.2.356 1985 Unknown [id number] 2.16.840.1.565051.3.579.2.356 1985 Unknown [id number] 2.16.840.1.557310.3.579.2.175 1985 Unknown [id number] 2.16.840.1.828006.3.579.2.593 1985 Unknown [id number] 2.16.840.1.224064.3.579.2.593 1985 Unknown [id number] 2.16.840.1.144616.3.579.2.593 1985 Unknown [id number] 2.16.840.1.122397.3.579.2.593 1985 Unknown [id number] 2.16.840.1.013592.3.579.2.593 1985 Unknown [id number] 2.16.840.1.221450.3.579.2.593 1985 Unknown [id number] 2.16840.1.436402.3.579.2.593 1985 Unknown [id number] 2.16.840.1.593321.3.579.2.593 1985 Unknown [id number] 2.16840.1.460125.3.579.2.593 1985 Unknown [id number] 2.16840.1.247084.3.579.2.593 1985 Unknown [id number] 2.16840.1.525593.3.579.2.593 1985 Unknown [id number] 2.16840.1.586070.3.579.2.593 1985 Unknown [id number] 2.16840.1.994053.3.579.2.593 1985 Unknown [id number] 2.16.840.1.951160.3.579.2.593 1985 Unknown [id number] 2.16.840.1.179708.3.579.2.593 1985 Unknown [id number] 2.16.840.1.888012.3.579.2.593 1985 Unknown [id number] 2.16.840.1.390365.3.579.2.593 1985 Unknown [id number] 2.16.840.1.409909.3.579.2.593 1985 Unknown [id number] 2.16.840.1.425073.3.579.2.593 1985 Unknown [id number] 2.16.840.1.810465.3.579.2.593 1985 Unknown [id number] 2.16.840.1.278563.3.579.2.593 1985 Unknown [id number] 2.16.840.1.780920.3.579.2.593 1985 Unknown [id number] 2.16.840.1.942382.3.579.2.593 1985 Unknown [id number] 2.16.840.1.860882.3.579.2.593 1985 Unknown [id number] 2.16840.1.090733.3.579.2.593 1985 Unknown [id number] 2.16840.1.997184.3.579.2.593 1985 Unknown [id number] 2.16.840.1.616830.3.579.2.72 1985 Unknown [id number] 2.16.840.1.992644.3.579.2.72 1985 Unknown [id number] 2.16840.1.451419.3.579.2.72 1985 Unknown [id number] 2.16.840.1.264267.3.579.2.727 1985 Unknown [id number] 2.16.840.1.031210.3.579.2.72 1985 Unknown [id number] 2.16.840.1.861369.3.579.2.727 1985 Unknown [id number] 2.16.840.1.101836.3.579.2. 1985 Unknown [id number] 2.16.840.1.421999.3.579.2 1985 Unknown [id number] 2.16.840.1.456974.3.579.2 1985 Unknown [id number] 2.16.840.1.785419.3.579.2 1985 Unknown [id number] 2.16840.1.258510.3.579.2 1985 Unknown [id number] 2.16840.1.716686.3.579.2 1985 Unknown [id number] 2.16840.1.098153.3.579.2 1985 Unknown [id number] 2.16840.1.408571.3.579.2 1985 Unknown [id number] 2.16840.1.727765.3.579.2 1985 Unknown [id number] 2.16840.1.945303.3.579. 1985 Unknown [id number] 2.16840.1.855036.3.579.2 1985 Unknown [id number] 2.16840.1.412872.3.579.2 1985 Unknown [id number] 2.16840.1.486636.3.579.2 1985 Unknown [id number] 2.16840.1.500059.3.579.2 1985 Unknown [id number] 2.16840.1.863627.3.579.2 1985 Unknown [id number] 2.16840.1.183607.3.579.2 1985 Unknown [id number] 2.16840.1.585156.3.579.2. 1985 Unknown [id number] 2.16.840.1.143962.3.579.2 1985 Unknown [id number] 2.16.840.1.367150.3.579.2 1985 Unknown [id number] 2.16.840.1.168383.3.579.2 1985 Unknown [id number] 2.16.840.1.576859.3.579.2 1985 Unknown [id number] 2.16.840.1.217856.3.579.2 1985 Unknown [id number] 2.16.840.1.372427.3.579.2 1985 Unknown [id number] 2.16840.1.829469.3.579.2 1985 Unknown [id number] 2.16.840.1.038787.3.579.2 1985 Unknown [id number] 2.16.840.1.039093.3.579.2 1985 Unknown [id number] 2.16.840.1.599278.3.579.2 1985 Unknown [id number] 2.16840.1.355631.3.579.2 1985 Unknown [id number] 2.16.840.1.854577.3.579.2 1985 Unknown [id number] 2.16.840.1.694842.3.579.2 1985 Unknown [id number] 2.16.840.1.398402.3.579.2 1985 Unknown [id number] 2.16.840.1.500642.3.579.2 1985 Unknown [id number] 2.16.840.1.059666.3.579.2.727 1985 Unknown [id number] 2.16.840.1.798035.3.579.2. 1985 Unknown [id number] 2.16.840.1.913721.3.579.2. 1985 Unknown [id number] 2.16.840.1.767619.3.579.2. 1985 Unknown [id number] 2.16.840.1.006285.3.579.2.72 1985 Unknown [id number] 2.16.840.1.834106.3.579.2. 1985 Unknown [id number] 2.16840.1.119943.3.579.2. 1985 Unknown [id number] 2.840.1.804646.3.579.2.1285 1985 Unknown [id number] 2.16840.1.527237.3.579.2.1285 1985 Unknown [id number] 2.840.1.620833.3.579.2.1285 1985 Unknown [id number] 2.16840.1.444840.3.579.2.1285 1985 Unknown [id number] [id number] 1985 Unknown [id number] 2.16840.1.584061.3.579.2.1285 1985 Unknown [id number] 2.16840.1.434186.3.579.2.1285 1985 Unknown [id number] 2.16840.1.675793.3.579.2.1285 1985 Unknown [id number] 2.16840.1.260773.3.579.2.1285 1985 Unknown [id number] 2.16.840.1.825933.3.579.2.1258 1985 Unknown [id number] 2.16.840.1.145318.3.579.2.1258 1985 Unknown [id number] 2.16.840.1.993677.3.579.2.1258 1985 Unknown [id number] 2.16.840.1.489511.3.579.2.1258 1985 Unknown [id number] 2.16.840.1.826968.3.579.2.1258 1985 Unknown [id number] 2.16.840.1.997718.3.579.2.1258 1985 Unknown [id number] 2.16.840.1.239804.3.579.2.1258 1985 Unknown [id number] 2.16.840.1.473040.3.579.2.1258 1985 Unknown [id number] 2.16.840.1.290631.3.579.2.1258 1985 Unknown [id number] 2.16.840.1.822232.3.579.2.1258 1985 Unknown [id number] 2.16.840.1.898925.3.579.2.1258 1985 Unknown [id number] 2.16.840.1.712424.3.579.2.1258 1985 Unknown [id number] 2.16.840.1.000463.3.579.2.1258 1985 Unknown [id number] 2.16.840.1.393184.3.579.2.1259 1959 Self-pay 1959 Unknown [id number] 1959 Unknown [id number] [id number].3.6 [id number] Unknown [id number] 2.16.840.1.108071.3.579.2.593 Social History Date Type Detail Facility Start: 09-10-2017 End: 01-31-2019 Tobacco smoking status NHIS Never smoked tobacco [facility] Start: 09-10-2017 End: 01-31-2019 Tobacco use and exposure Smokeless tobacco non-user [facility] Start: 08-01-2021 End: 12-23-2024 Alcohol intake Current non-drinker of alcohol (finding) [facility] Start: 1985 Sex Assigned At Not on file [facility] Start: 07-22-2021 End: 03-27-2022 Exposure to SARS-CoV-2 (event) Not sure [facility] Start: 05-28-2017 End: 07-12-2022 Tobacco smoking status Never [facility] Start: 06-10-2020 End: 07-27-2022 Sex Assigned At Female [facility] Start: 11-21-2021 End: 02-06-2025 Alcohol intake Ex-drinker (finding) [facility] Work Phone: Start: 12-29-2016 History SDOH Alcohol Comment occasionally [facility] Work Phone: Start: 08-20-2021 [facility] Work Phone: Start: 06-10-2020 End: 07-27-2022 History of Social function [facility] Start: 04-04-2024 End: 02-09-2025 Alcoholic beverage intake Lifetime non-drinker (finding) [facility] Tobacco smoking stat us NHIS Unknown if ever smoked [facility] Work Phone: Start: 11-27-2018 End: 05-13-2024 Sex Female (finding) [facility] Start: 1985 Sex Assigned At Female [facility] Sexual Orientation [facility] Medical Equipment Procedure Code Equipment Code Equipment Origin al Text Equipment Identifier Dates [id number] Start: 10-30-2024 End: 11-29-2024 1 each by In Vit ro route Daily Use to check FSBS four times daily [id number] Start: 10-30-2024 End: 11-29-2024 Use a new needle with each injection ( 1- 5 times per day) [id number] Start: 12-03-2024 Functional Status Date Assessment Result Facility 06-30-2024 Functional Status N/A [facility] 06-19-2024 Functional Status N/A [facility] [place] 06-09-2024 Functional Status N/A [facility] 02-05-2024 Functional Status N/A [facility] 02-02-2024 Functional Status N/A [facility] 11-09-2023 Functional Status N/A [facility] 10-23-2023 Functional Status N/A [facility] 09-28-2023 Functional Status N/A [facility] 08-03-2023 Functional Status N/A [facility] 05-25-2023 Functional Status N/A [facility] 02-15-2023 Functional Status N/A [facility] 10-20-2022 Functional Status N/A [facility] Clinical Notes 07-26-2019 to 02-10-2025 Telephone Encounter - PRISCILLA Sutherland - 02/10/2025 11:54 AM EDTTelephone Encounter - PRISCILLA Sutherland - 02/10/2025 11:54 AM Lul Murray LPN - 02/09/2025 10:30 AM EDTLaboratoryRadiology Note Date & Type Note Facility 02-10-2025 Miscellaneous Notes Called regarding blood sugar logs from 02/02/25 - 02/08/25. Sanna had 4 elevated blood sugars but she had sick kids and she wasn't feeling well either. She did start 1500 mg of XR metfomin in the the evening and felt that it helped lower her blood sugars. Sanna did get the NPH but would like to continue with the metformin for now. She finds that she has a later dinner her fasting blood sugar is <95 mg/dL. We then discussed if she has an earlier dinner to have a 30 gram evening snack that is higher in fiber and is paired with a protein. Encouraged to refer to her snack sheet and try the ones that have an asterisk. Continue to send in blood sugars weekly. documented in this encounter [employer] 02-10-2025 Telephone encounter Note Called regarding blood sugar logs from 02/02/25 - 02/08/25. Sanna had 4 elevated blood sugars but she had sick kids and she wasn't feeling well either. She did start 1500 mg of XR metfomin in the the evening and felt that it helped lower her blood sugars. Sanna did get the NPH but would like to continue with the metformin for now. She finds that she has a later dinner her fasting blood sugar is <95 mg/dL. We then discussed if she has an earlier dinner to have a 30 gram evening snack that is higher in fiber and is paired with a protein. Encouraged to refer to her snack sheet and try the ones that have an asterisk. Continue to send in blood sugars weekly. [employer] Work Phone: 02-09-2025 History of Present illness Narrative Reason for [...] Diagnosis Date Noted 32 weeks gestation of ([facility]) 11/28/2019 Abdominal pain 06/12/2023 Acute bronchitis due to infection 06/12/2023 Acute on chronic vesicular eczema of hands and feet 11/15/2023 Anemia complicating childbirth ([facility]) 01/16/2020 Anticoagulant long-term use 02/22/2020 Antiphospholipid antibody positive 09/10/2017 Antiphospholipid antibody syndrome ([facility]) 07/07/2019 Anxiety 06/12/2023 Blood pressure elevated without history of HTN 11/15/2023 BMI 37.0-37.9, adult 11/15/2023 Cerebral infarction, unspecified ([facility]) 05/16/2019 Cerebrovascular accident (CVA) due to stenosis of middle cerebral artery ([facility]) 02/22/2020 Cervicalgia 02/05/2019 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 ([facility]) 01/08/2020 Coagulation defect, unspecified ([facility]) 02/05/2019 Cold intolerance 11/15/2023 Deficiency of other specified B group vitamins 05/16/2019 Deviated septum 11/15/2023 Dizziness and giddiness 02/05/2019 Dry mouth 11/15/2023 Dysfunction of eustachian tube 06/12/2023 Dyspnea 06/12/2023 Elevated blood pressure reading 11/15/2023 Encounter for supervision of normal , unspecified, first trimester ([facility]) 05/29/2019 Environmental allergies 11/15/2023 Fatigue 12/29/2016 First degree perineal laceration during delivery ([facility]) 01/16/2020 Frequency of micturition 02/19/2019 Genitourinary symptoms 08/19/2021 Gestational diabetes mellitus (GDM), antepartum ([facility]) 01/26/2022 H/O: hypothyroidism 11/15/2023 Hematochezia 06/12/2023 [...] anemia 01/16/2020 Irregular uterine bleeding 11/15/2023 problem ([facility]) 06/12/2023 Less than 8 weeks gestation of ([facility]) 06/05/2019 flame gouger (current) use of 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/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 02/05/2019 Migraine without aura and without status migrainosus, not intractable 09/12/2017 Morbid obesity ([facility]) 11/15/2023 Muscle fasciculation 08/19/2021 Nasal polyps 11/15/2023 Non-smoker 11/15/2023 NEETA (obstructive sleep apnea) 11/15/2023 Other acute postprocedural pain 02/03/2019 Other general symptoms and signs 10/28/2019 Other immediate hemorrhage ([facility]) 01/16/2020 Other specified noninflammatory disorders of vagina 02/21/2019 Pain in joint 12/29/2016 Palpitations 08/26/2019 Paresthesia of bilateral legs 11/15/2023 Pelvic and perineal pain 02/01/2019 Personal history of urinary (tract) infections 01/16/2020 Pre-diabetes 11/15/2023 Primary hypercoagulable state ([facility]) 08/01/2022 Pruritus, unspecified 01/02/2020 Psychogenic hyperventilation 06/12/2023 Raised antibody titer 09/25/2017 Right lower quadrant pain 11/15/2023 Right otitis externa 11/15/2023 Salivary gland swelling 11/15/2023 Single live ([facility]) 01/15/2020 Snoring 11/15/2023 Speech and language deficit [...] of advanced maternal age in second trimester ([facility]) 01/05/2025 Thyroid disease 01/05/2025 Resolved Ambulatory Problems Diagnosis Date Noted No Resolved Ambulatory Problems Past Medical History: Diagnosis Date AMA (advanced maternal age) multigravida 35+ ([facility]) Anemia Antiphospholipid syndrome ([facility]) Gestational diabetes ([facility]) Heartburn Hypothyroid Stroke ([facility]) HISTORY PAST MEDICAL HISTORY SOCIAL HISTORY Past Medical History: Diagnosis Date AMA (advanced maternal age) multigravida 35+ ([facility]) Anemia Antiphospholipid syndrome ([facility]) Gestational diabetes ([facility]) Heartburn Hypothyroid Stroke (HCC) Social History Tobacco [...] drainage of cyst WISDOM TOOTH EXTRACTION 2007 [place] teeth REVIEW OF SYSTEMS Review of Systems: [...] nursing note reviewed. Exam conducted with a e marketing specialist present. Vitals: Estimated body mass index is 34.12 kg/m as calculated from the following: Height as of 11/19/23: 5' 6 . Weight as of this encounter: 211 lb 6.4 oz. BP: 124/76 Patient's last menstrual period was 07/28/2024. ASSESSMENT & PLAN ICD-10-CM 1. Third trimester ([facility]) Z34.93 2. 28 weeks gestation of ([facility]) Z3A.28 CBC and differential POCT urinalysis [...] 4 weeks from now until delivery. Patient given orders and they were also faxed to [facility] and [facility] Scheduling. Patient to return to clinic in 2 weeks for routine OB appointment. Documented by Rosi Murray LPN on behalf of: Wilton Herrmann DO documented in this encounter [facility] 02-06-2025 History of Present illness Narrative Images from the original note were not included. Video Visit via Real-time Synchronous Audiovisual Provider Location: [facility] AT [address] [address] Patient Location: Other Home Patient Location Family Nurse Practitioner: None Video Visit Consent Statement: I discussed risks, benefits, and alternatives of a real-time synchronous audiovisual consultation with the patient (and any accompanying persons) including the risks that the patient's personal health details and medical records will be discussed over real-time, synchronous, interactive video/audio/telecommunication technology, the visit will not be recorded without the express consent of both the provider and the patient, and that there are some limitations compared to [id number] evaluations. We elected to proceed. [facility] Maternal- Medicine Office Note Reason For Office Visit: follow up HPI: Sanna Rendon is a 39 y.o. at 27w4d with [...] had bled heavily on aspirin preceding this. In the past she also has tried Xarelto and Coumadin Currently on Lovenox 40 mg b.i.d. and she is compliant Sees Neurology Dr. Jorge Monge on 01/21/[address] Negrete has appt in Feb 2025 Overall she has been experiencing low-grade fevers facial redness and sore to touch intermittently since 2023. 07/01/24: Anticardiolipin IgG elevated, SSA and SSB negative, NASEEM neg, negative double-stranded DNA antibodies, anti-Brianna neg, anti-smooth neg, CRP negative, ESR neg GDMA2 - on metformin. HgbA1C 5.9% 10/06/24. She was concerned about allergic reaction with the Lantus NPH has been prescribed but she has not [...] will be undergoing genetic testing through the bridge instructor. There is family history of hypospadias and [...] Anemia Antiphospholipid antibody syndrome Cerebral infarction, unspecified ([facility]) 05/16/2019 Hypothyroid Migraine without aura and without status migrainosus, not intractable 09/12/2017 Stroke ([facility]) 2016 PSHIST: Past Surgical History: Procedure Laterality Date BREAST BIOPSY 2013 PELVIC LAPAROSCOPY WISDOM TOOTH EXTRACTION 2006 Allergies: [...] ., Disp: , Rfl: blood-glucose sensor (FREESTYLE JENIFER 3 PLUS SENSOR) device, Wear for 15 [...] x 5/32 needle, Use a new needle with each injection ( 1- 5 times per day), [...] recovers from her recent infection. Risks of poorly-controlled diabetes with the discussed. The patient to [...] requested she check fasting BG levels 8-10hrs from last eating. Given GDMA2, can monitor patient's BG [...] to continue to send blood glucoses to [facility] to review - continue Lovenox 40 mg b.i.d. - The patient to continue to follow with Hematology and Neurology. Has scheduled follow-up with the rheumatology - nephrology referral recommended - serial growth [...] contact me if you have any concerns. Mukul Noyola MD, FACOG (she/hers) Maternal- Medicine [facility] [address] [facility] [address] [place] [address] This document was created with [employer] technology. Though I make every effort to review the dictation as it is transcribed, on occasion the spoken word can be misinterpreted by the technology leading to inappropriate words, phrases, or sentences. This note is addressed to the requesting provider as a consultation for clinical guidance. Specific medical abbreviations are occasionally used and those are generally approved by the [place]?Board of?Obstetrics and?Gynecology?as well as?Elizabeth s abbreviations. The above plan of care was based solely on the diagnoses for which a consultation was requested. ?More frequent testing may be indicated based on her other medical/obstetrical conditions. The management of other or medical conditions is beyond the scope of requested consultation and will continue to be followed by the primary aircraft structural repairer or primary care provider. Note to patient: The Century Cures Act makes medical notes like these available to patients in the interest of transparency. However, be advised this is a medical document. It is intended as peer to peer communication. It is written in medical language and may contain abbreviations or verbiage that are unfamiliar. It may appear blunt or direct. Medical documents are intended to carry relevant information, facts as evident, and the clinical opinion of the practitioner. documented in this encounter [facility] 02-03-2025 Note Echocardiology Procedure Exam Date/Time Accession # Ordering Dr. Connolly Transthoracic 02/03/2025 10:00 EDT [id number] Wilton HERRMANN DO Complete CPT code 32878 [id number] Reason for Exam (Echo Transthoracic Complete) Dizziness and giddiness E07.9, O09.522 R42 Report [facility] [address] [place] [address] Adult Echocardiogram Report Name: SANNA RENDON Study Date: 02/03/2025 08:09 AM BP: 116/76 mmHg Patient Location: FT CAR F HR: 84 : 1985 Gender: Female Height: 66 in Age: 39 yrs Ethnicity: T Weight: 205 lb Reason For Study: Dizziness and giddiness E07.9, O09.522 R42 BSA: 2.0 m2 History: 27 weeks , Thyroid disease, Gestational diabetes, CVA Ordering Physician: Wilton HERRMANN Referring Physician: Wilton HERRMANN Performed By: Marry Peng [facility] Interpretation Summary There is Trace mitral regurgitation. The left ventricle is normal in size. Ejection Fraction = 60-65%. The left atrium is mildly dilated. The right ventricular systolic function is normal. The right ventricle is normal size. Procedure A complete two-dimensional transthoracic echocardiogram was performed (2D, M-mode, spectral and color flow Doppler). Study quality is good. I WMSI = 1.00 % Normal = 100 Segments Size X - Cannot 2 - 1-2 small Interpret 1 - Normal Hypokinetic 3 - Akinetic 4 - Dyskinetic3-5 moderate 5 - Aneurysmal 6-14 large 15-16 diffuse Left Ventricle The left ventricle is normal in size. There is normal left ventricular wall thickness. Ejection Fraction = 60-65%. The Echocardiology Report left ventricular wall motion is normal. Normal diastolic function. Left Atrium The left atrium is mildly dilated. Right Atrium Right atrial size is normal. Right Ventricle The right ventricular systolic function is normal. The right ventricle is normal size. The right ventricular wall motion is normal. Aortic Valve The aortic valve is trileaflet. No aortic regurgitation. There is no aortic stenosis. Mitral Valve The mitral valve is normal in structure and function. There is Trace mitral regurgitation. No mitral valve stenosis. Tricuspid Valve Structurally normal tricuspid valve. There is trace tricuspid regurgitation. Pulmonic Valve Trace pulmonic valvular regurgitation. Arteries The aortic root is normal in size. Normal ascending aorta. Pulmonary artery diameter is normal. Venous The inferior vena cava is normal in size, and collapses normally with respiration. Effusion There is no pericardial effusion. MMode/2D Measurements & Calculations RVDd: 3.0 cm LVIDd: 4.2 cm FS: 34.0 % Ao root diam: 2.5 cm IVSd: 0.87 cm LVIDs: 2.8 cm EDV(Teich): 79.2 ml Ao root area: 5.0 cm2 LVPWd: 1.1 cm ESV(Teich): 29.0 ml LA dimension: 4.2 cm EF(Teich): 63.3 % asc Aorta Diam: 2.6 cm LVOT diam: 2.0 cm LVLd ap4: 8.3 cm EDV(MOD-sp2): 76.3 ml LVOT area: 3.0 cm2 EDV(MOD-sp4): 74.5 ml ESV(MOD-sp2): 25.2 ml LVLs ap4: 6.4 cm EF(MOD-sp2): 67.0 % ESV(MOD-sp4): 30.7 ml EF(MOD-sp4): 58.8 % SV(MOD-sp4): 43.8 ml TAPSE: 2.5 cm Ao Sinus of Valsalva: 2.5 cm Ao Sinotubular Junction: 2.1 cm IVC Diam: 1.8 cm RVIDd/LVIDd: 0.70 EF (MOD-bp): 63.4 % LA Vol Index: 26.9 ml/m2 Doppler Measurements & Calculations Echocardiology Report MV E max sweetie: 68.7 cm/sec MV dec time: 0.20 sec Ao V2 max: 175.5 cm/sec LV V1 max P.9 mmHg MV A max sweetie: 56.4 cm/sec Ao max P.3 mmHg LV V1 max: 98.5 cm/sec MV E/A: 1.2 Lat Peak E' Sweetie: 13.2 cm/sec TERENCE(V,D): 1.7 cm2 E/E' Lat: 5.2 Med Peak E' Sweetie: 10.3 cm/sec E/E' Med: 6.7 TR max sweetie: 240.0 cm/sec RAP systole: 3.0 mmHg AV VR: 0.56 TR max P.0 mmHg RVSP(TR): 26.0 mmHg FINAL REPORT Dictated: 02/03/2025 8:09 am Merrick Watkins MD Signed (Electronic Signature): 02/03/2025 1:41 pm Signed by: Merrick Watkins MD Transcribed by: [facility] Technologist: LAVON Ramsey [facility] 01-19-2025 History of Present illness Narrative Reason for [...] Diagnosis Date Noted 32 weeks gestation of ([facility]) 11/28/2019 Abdominal pain 06/12/2023 Acute bronchitis due to infection 06/12/2023 Acute on chronic vesicular eczema of hands and feet 11/15/2023 Anemia complicating childbirth ([facility]) 01/16/2020 Anticoagulant long-term use 02/22/2020 Antiphospholipid antibody positive 09/10/2017 Antiphospholipid antibody syndrome ([facility]) 07/07/2019 Anxiety 06/12/2023 Blood pressure elevated without history of HTN 11/15/2023 BMI 37.0-37.9, adult 11/15/2023 Cerebral infarction, unspecified ([facility]) 05/16/2019 Cerebrovascular accident (CVA) due to stenosis of middle cerebral artery ([facility]) 02/22/2020 Cervicalgia 02/05/2019 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 ([facility]) 01/08/2020 Coagulation defect, unspecified ([facility]) 02/05/2019 Cold intolerance 11/15/2023 Deficiency of other specified B group vitamins 05/16/2019 Deviated septum 11/15/2023 Dizziness and giddiness 02/05/2019 Dry mouth 11/15/2023 Dysfunction of eustachian tube 06/12/2023 Dyspnea 06/12/2023 Elevated blood pressure reading 11/15/2023 Encounter for supervision of normal , unspecified, first trimester ([facility]) 05/29/2019 Environmental allergies 11/15/2023 Fatigue 12/29/2016 First degree perineal laceration during delivery ([facility]) 01/16/2020 Frequency of micturition 02/19/2019 Genitourinary symptoms 08/19/2021 Gestational diabetes mellitus (GDM), antepartum ([facility]) 01/26/2022 H/O: hypothyroidism 11/15/2023 Hematochezia 06/12/2023 [...] anemia 01/16/2020 Irregular uterine bleeding 11/15/2023 problem ([facility]) 06/12/2023 Less than 8 weeks gestation of ([facility]) 06/05/2019 flame gouger (current) use of 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/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 02/05/2019 Migraine without aura and without status migrainosus, not intractable 09/12/2017 Morbid obesity ([facility]) 11/15/2023 Muscle fasciculation 08/19/2021 Nasal polyps 11/15/2023 Non-smoker 11/15/2023 NEETA (obstructive sleep apnea) 11/15/2023 Other acute postprocedural pain 02/03/2019 Other general symptoms and signs 10/28/2019 Other immediate hemorrhage ([facility]) 01/16/2020 Other specified noninflammatory disorders of vagina 02/21/2019 Pain in joint 12/29/2016 Palpitations 08/26/2019 Paresthesia of bilateral legs 11/15/2023 Pelvic and perineal pain 02/01/2019 Personal history of urinary (tract) infections 01/16/2020 Pre-diabetes 11/15/2023 Primary hypercoagulable state ([facility]) 08/01/2022 Pruritus, unspecified 01/02/2020 Psychogenic hyperventilation 06/12/2023 Raised antibody titer 09/25/2017 Right lower quadrant pain 11/15/2023 Right otitis externa 11/15/2023 Salivary gland swelling 11/15/2023 Single live ([facility]) 01/15/2020 Snoring 11/15/2023 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) 12/30/2019 Suspected severe acute respiratory syndrome coronavirus 2 (SARS-CoV-2) infection 06/12/2023 SVT (supraventricular tachycardia) ([facility]) 08/26/2019 Syncope and collapse 06/03/2018 Other bacterial infections of unspecified site 06/27/2019 Thrombocytopenia, unspecified 11/20/2019 Hypoglycemia 06/12/2023 Unspecified condition associated with female genital organs and menstrual cycle 05/09/2019 Unspecified ovarian cyst, right side 02/06/2019 Urinary tract infection 10/16/2019 Referred otalgia of right ear 11/19/2023 LPRD (laryngopharyngeal reflux disease) 11/19/2023 H/O loss 01/05/2025 Multigravida of advanced maternal age in second trimester ([facility]) 01/05/2025 Thyroid disease 01/05/2025 Resolved Ambulatory Problems [...] drainage of cyst WISDOM TOOTH EXTRACTION 2007 [place] teeth REVIEW OF SYSTEMS Review of Systems: [...] nursing note reviewed. Exam conducted with a e marketing specialist present. Vitals: Estimated body mass index is 34.14 kg/m as calculated from the following: Height as of 7/22/24: 5' 6 . Weight as of this encounter: 211 lb 8 oz. BP: 124/70 Patient's last menstrual period was 07/28/2024. ASSESSMENT & PLAN ICD-10-CM 1. Second trimester ([facility]) Z34.92 POCT urinalysis dipstick manually resulted 2. 25 weeks gestation of ([facility]) Z3A.25 3. Gestational diabetes mellitus (GDM), antepartum, gestational diabetes method of control unspecified ([facility]) O24.419 metFORMIN XR (Glucophage-XR) 500 MG 24 hr tablet Return OB: Patient presents today for a routine obstetrics appointment. Patient is currently 25w0d . Patient states she is doing well but has complaints of being tired due to current . Patient has verbalizes frequent movement. labor precautions was discussed/given and patient was instructed to perform kick counts three times a day. Orders Placed This Encounter Procedures POCT urinalysis dipstick manually resulted Follow Up: Patient is to return to office in 2 week for routine OB appointment. She continues to follow up with MFM. Glucose monitoring per MFM at this time. Patient reports that she is having difficulty with the pharmacy and would like to switch her Lovenox and Metformin to [facility] pharmacy. Growth ultrasound at 28 weeks as well as NST and BPP at 28 weeks. Documented by Celia Keith NP on behalf of: Wilton Herrmann DO documented in this encounter [facility] 01-13-2025 History of Present illness Narrative Maternal- Medicine Consultation VIDEO Patient is present at home , provider present at [facility] HISTORY OF PRESENT ILLNESS: Sanna Rendon is a 39 y.o. female at 24w1d due on Estimated Date of Delivery: 05/04/25 complicated by GDMA2, antiphospholipid syndrome with h/o CVA, hypothyroidism, h/o 17w loss, h/o electrolyte abnormalities Patient is feeling well today. She denies contractions, vaginal bleeding, leaking fluid. She appreciates movement. BG log review: F: 95-104 Post prandial breakfast levels all under 140, however for the past week very few PPL and PPD values recorded . States she was told 'those numbers don't matter,' so she has rarely been checking Has not started insulin as feels she saw some lowering of fastings with increased dose of metformin, and had bad reaction to lantus. When injected lantus felt like her kidneys started to hurt and felt like her throat was scratchy and tight the next day. Denies any values <60 day or night Start metformin 1000mg qhs 12/14 LMP 07/28/2024 PAST OBSTETRICAL HISTORY: OB History 8 Para 4 Term 4 AB 3 Living 4 SAB 3 IAB Ectopic Multiple Live Births 4 SURGICAL HISTORY: Past Surgical History: Procedure Laterality [...] ., Disp: , Rfl: blood-glucose sensor (FREESTYLE JENIFER 3 PLUS SENSOR) device, Wear for 15 [...] (twelve) hours., Disp: 24 mL, Rfl: 6 insulin NPH (HumuLIN N,NovoLIN N) 100 unit/mL injection, Inj sbq in abd 8 units nightly (Patient not taking: Reported on 01/01/2025), Disp: 10 mL, Rfl: 6 lancets misc, 1 each [...] x 5/32 needle, Use a new needle with each injection ( 1- 5 times per day), [...] in the morning., Disp: , Rfl: LABS: Lab Results Component Value Date TSH 1.25 10/28/2024 No components found for: UPRC No results found for: CREATININE , BUN , NA , K , CL , CO2 No results found for: ALT , AST , GGT , ALKPHOS , LABBILI Lab Results Component Value Date HGBA1C 5.9 10/06/2024 No components found for: POCA1C REVIEW OF SYSTEMS: Head and Neck: Negative for any dizziness and headaches. Cardiovascular and Respiratory System: Denies any chest pain, shortness of breath, and coughing. Abdominal and System: Denies any abdominal pain, nausea, vomiting, vaginal bleeding, and vaginal discharge PHYSICAL EXAMINATION: Gen: NAD DISCUSSION Gestational diabetes is a is a state of carbohydrate intolerance with subsequently insulin resistance and hyperglycemia. This is a malfunction or dysfunction of glucose sensors in the liver with inappropriate release of glucose followed by hyperinsulinemia followed by normal insulin secretion and then relatively deficiency in insulin secretion resulting in both hyperglycemia and associated hypertriglyceridemia. This along with placental hormones such as human placental lactogen and TNF alpha cause hyperglycemia. The patient eventually develops insulin resistance and hyperglycemia Thus the patient's insulin is not sufficient to achieve a normal glycemic state. I informed the patient that maternal hyperglycemia results in hyperglycemia leading to adverse outcomes in the growth and development. We reviewed the implications and risks of diabetes in . Diabetes in is associated with poorer outcomes if blood glucose levels are not well controlled. Potential effects of uncontrolled diabetes , or hyperglycemia, include: macrosomia, hypoglycemia, shoulder dystocia, delivery by section, polyhydramnios, and demise. In addition, women with diabetes in are at increased risk of developing hypertension diseases in ,such as gestational hypertension, or preeclampsia. Patient was explained that the high risk of shoulder dystocia in fetuses with EFW 4500 gm or higher. Long-term risk to offspring from poor maternal glycemic control include: obesity, cardiovascular disease, impaired glucose tolerance and Type 2 diabetes. Treatment for diabetes in : Lifestyle modification with a healthy diet and increasing physical activity can help manage hyperglycemia, and is therefore always encouraged. We briefly discussed diet modifications and physical activity. The mainstay of pharmacotherapy for the treatment of diabetes in remains insulin. Oral hypoglycemics, such as metformin, both cross the placenta and are more likely to fail compared to insulin. flame gouger data on children whose mothers took oral hypoglycemic agents while is limited. Medication is typically initiated when >20-30% of the blood glucose values in one week are out of range. Risks and side effects of both insulin and oral agents were discussed. In discussion of the above, patients is still leaning towards staying on metformin or trying increased dose over starting insulin. She is concerned about having reaction to NPH as she did with lantus. Discussed allergy to insulin rare, though not impossible. Recommend she have someone with her if she ultimately decides to start insulin. Stressed that I do not feel metformin alone will not lower her fasting BG levels to goal given she is already on metformin 1000mg at night. Stressed that it is not insuiln that may increase risks as stated above, but that hyperglycemia can in fact put patient and baby at risk for adverse outcomes (reviewed). Glucose goals in : Fasting 60 - 95: Mean fasting glucose values are important in managing diabetes in women because they provide overall glycemic estimate, and are predictive of increased fat mass in the women s offspring. Increased fat mass has been shown to be associated with the development of childhood obesity, and diabetes. One hour postprandial 90 - 140: Postprandial measurements are important in management of diabetes in because they are associated with incidence of large for gestational age infants, and lower rates of delivery for cephalopelvic disproportion when well controlled. Discussed monitoring for hypogylcemia, signs/symptoms of hypoglycemia, and examples of treatment of hypoglycemia (15/15 rule). Discussed her current diet and her awareness of grams of carbohydrate per meal. Reviewed recommendations - 30g carbohydrate for breakfast, 45-60g carbohydrate for lunch and dinner, 15g carbohydrate for snacks, incorporating sufficient protein with each meal and ideally having half of plate be fruits and vegetables (with awareness of which fruits typically spike blood glucose). Encouraged her to be aware of carbohydrate intake and note which foods causing values above goal. Encouraged her on diet modifications. PLAN - Current blood glucose control: suboptimal fastings, unknown post prandials - Medication: - Metformin 1000 qhs - patient at this time would prefer to increase to 1500mg qhs, discussed typically we do not go above 1000mg per dose - Has yet to start NPH 4 units - has extensive conversation regarding my recommendation to start. Advised to start giving at bedtime every day - pateint is considering starting. Requested she update us on her log each week what she is taking in regards to medication - See previous MFM MD notes - MFM and hematology recommend therapeutic dosing of lovenox, however patient desires to remain on prophylactic dosing - Labs - A1c: 5.9 on 10/06/24 - Baseline preeclampsia labs: CMP, Plts, urine P/C ratio - monitor her thyroid function every 4-6 weeks and adjust Synthroid with a goal of TSH less than 2.5; go to the prepregnancy dose of Synthroid: patient is due for repeat levels, she would prefer to have order come from her primary office so she can have them done at [place] - Anatomy survey with MFM -followsup scheduled 02/05 - growth ultrasounds every 4 weeks after 28 weeks - Last growth done 01/02 Normal growth. EFW measures at the 73%, AC measures at the 57%. Transvaginal cervical length measures 3.1 cm. Amniotic fluid MVP measures 5.1 cm. - Recommend the following for testing, which can be done with primary OB: - weekly NST and DVP at 28 week, increase NST to twice weekly at 32 weeks through primary OB office - Delivery recommendations : - delivery 39 weeks or earlier pending clinical course - Discuss delivery if estimated weight is >4500g - Use 1/2 dose of insulin the night before her planned delivery - discontinue insulin and metformin. To have 2 hours oral glucose tolerance test around 6-8 weeks after delivery - Also recommend yearly evaluation of blood glucose as patient is at an increased risk of developing diabetes later on - maternal echocardiogram ordered previously - patient aware she needs to get scheduled - nephrology referral previously recommended- previous MFM MD had sent referral to Dr Zimmerman - provided patient with their number to call - scheduled with rheumatology 02/16 Follow up in 3 weeks with Maternal- Medicine MD and US as scheduled . I asked her to keep sending values to us weekly by e-mail to: [email or web address] or by fax to: [phone] Roxana Mays PA-C Maternal- Medicine Office phone: [phone] Roxana Mays PA-C 01/13/25 1031 documented in this encounter [facility] 01-13-2025 Miscellaneous Notes Disclaimer: This note is intended for educational purposes only. It does not constitute a patient visit and is not to be used or relied on for treatment, billing, or any other purposes. It has been created solely for to enable the student to practice documentation to achieve the expected level of competency in charting and receive feedback regarding same. This note is not a part of the legal medical record. documented in this encounter [facility] 01-13-2025 Progress note Formatting of t his note might be different from the original. Disclaimer: This note is intended for educational purposes only. It does not constitute a patient visit and is not to be used or relied on for treatment, billing, or any other purposes. It has been created solely for to enable the student to practice documentation to achieve the expected level of competency in charting and receive feedback regarding same. This note is not a part of the legal medical record. [facility] 01-09-2025 Miscellaneous Notes I called Dr. Ojeda. He is recommendation is that she is on a therapeutic dose of Lovenox however the patient has been declining and only accepting 40mg daily. He further addressed that if she is declining the therapeutic dose of Lovenox at a minimum to be on 80 mg a day. I called the patient and I also reviewed my concerns with her dosing of Lovenox. We reviewed that is a thrombogenic state and she has an increased risk of a stroke/DVT/VTE. I discussed the recommendations for Lovenox. She declined therapeutic Lovenox and accepts risks. She agreed to increase her Lovenox to 40 mg twice daily. Bleeding precautions given New prescription sent in. All questions and concerns answered. MUKUL NOYOLA MD documented in this encounter [facility] 01-09-2025 Telephone encounter Note I called Dr. Ojeda. He is recommendation is that she is on a therapeutic dose of Lovenox however the patient has been declining and only accepting 40mg daily. He further addressed that if she is declining the therapeutic dose of Lovenox at a minimum to be on 80 mg a day. I called the patient and I also reviewed my concerns with her dosing of Lovenox. We reviewed that is a thrombogenic state and she has an increased risk of a stroke/DVT/VTE. I discussed the recommendations for Lovenox. She declined therapeutic Lovenox and accepts risks. She agreed to increase her Lovenox to 40 mg twice daily. Bleeding precautions given New prescription sent in. All questions and concerns answered. MUKUL NOYOLA MD [facility] Miscellaneous Notes Sales Account Executive called and spoke to patient yesterday to discuss a several topics. Sales Account Executive asked if patient wanted another follow up cervical length. Patient declined. We also discussed her insulin dosage. Patient had not started her NPH insulin yet because her pharmacy did not notify her it was ready for pickup. She asked if she could start at 4 units instead of 8. She is worried because she had a bad reaction when she took Lantus previously. Sales Account Executive discussed this with Dr. Noyola and she is okay with her starting at a lower dose for now. Lastly, specifications writer notified patient that Dr. Noyola wanted to discuss with her agriculture worker her Lovenox dosing. Patient stated there was some confusion if she should be on 40mg or 80mg, patient prefers to be on the lower dose. Patient is seeing a Dr. Calix from the [facility] hematology office in [place]. Notified patient that we will reach out to her agriculture worker to discuss her dosing. documented in this encounter [facility] 01-07-2025 Telephone encounter Note Sales Account Executive called and spoke to patient yesterday to discuss a several topics. Sales Account Executive asked if patient wanted another follow up cervical length. Patient declined. We also discussed her insulin dosage. Patient had not started her NPH insulin yet because her pharmacy did not notify her it was ready for pickup. She asked if she could start at 4 units instead of 8. She is worried because she had a bad reaction when she took Lantus previously. Sales Account Executive discussed this with Dr. Noyola and she is okay with her starting at a lower dose for now. Lastly, specifications writer notified patient that Dr. Noyola wanted to discuss with her agriculture worker her Lovenox dosing. Patient stated there was some confusion if she should be on 40mg or 80mg, patient prefers to be on the lower dose. Patient is seeing a Dr. Calix from the [facility] hematology office in [place]. Notified patient that we will reach out to her agriculture worker to discuss her dosing. [facility] 01-05-2025 History of Present illness Narrative Reason for [...] Diagnosis Date Noted 32 weeks gestation of ([facility]) 11/28/2019 Abdominal pain 06/12/2023 Acute bronchitis due to infection 06/12/2023 Acute on chronic vesicular eczema of hands and feet 11/15/2023 Anemia complicating childbirth ([facility]) 01/16/2020 Anticoagulant long-term use 02/22/2020 Antiphospholipid antibody positive 09/10/2017 Antiphospholipid antibody syndrome ([facility]) 07/07/2019 Anxiety 06/12/2023 Blood pressure elevated without history of HTN 11/15/2023 BMI 37.0-37.9, adult 11/15/2023 Cerebral infarction, unspecified ([facility]) 05/16/2019 Cerebrovascular accident (CVA) due to stenosis of middle cerebral artery ([facility]) 02/22/2020 Cervicalgia 02/05/2019 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 ([facility]) 01/08/2020 Coagulation defect, unspecified ([facility]) 02/05/2019 Cold intolerance 11/15/2023 Deficiency of other specified B group vitamins 05/16/2019 Deviated septum 11/15/2023 Dizziness and giddiness 02/05/2019 Dry mouth 11/15/2023 Dysfunction of eustachian tube 06/12/2023 Dyspnea 06/12/2023 Elevated blood pressure reading 11/15/2023 Encounter for supervision of normal , unspecified, first trimester ([facility]) 05/29/2019 Environmental allergies 11/15/2023 Fatigue 12/29/2016 First degree perineal laceration during delivery ([facility]) 01/16/2020 Frequency of micturition 02/19/2019 Genitourinary symptoms 08/19/2021 Gestational diabetes mellitus (GDM), antepartum ([facility]) 01/26/2022 H/O: hypothyroidism 11/15/2023 Hematochezia 06/12/2023 [...] anemia 01/16/2020 Irregular uterine bleeding 11/15/2023 problem ([facility]) 06/12/2023 Less than 8 weeks gestation of ([facility]) 06/05/2019 flame gouger (current) use of 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/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 02/05/2019 Migraine without aura and without status migrainosus, not intractable 09/12/2017 Morbid obesity ([facility]) 11/15/2023 Muscle fasciculation 08/19/2021 Nasal polyps 11/15/2023 Non-smoker 11/15/2023 NEETA (obstructive sleep apnea) 11/15/2023 Other acute postprocedural pain 02/03/2019 Other general symptoms and signs 10/28/2019 Other immediate hemorrhage ([facility]) 01/16/2020 Other specified noninflammatory disorders of vagina 02/21/2019 Pain in joint 12/29/2016 Palpitations 08/26/2019 Paresthesia of bilateral legs 11/15/2023 Pelvic and perineal pain 02/01/2019 Personal history of urinary (tract) infections 01/16/2020 Pre-diabetes 11/15/2023 Primary hypercoagulable state ([facility]) 08/01/2022 Pruritus, unspecified 01/02/2020 Psychogenic hyperventilation 06/12/2023 Raised antibody titer 09/25/2017 Right lower quadrant pain 11/15/2023 Right otitis externa 11/15/2023 Salivary gland swelling 11/15/2023 Single live ([facility]) 01/15/2020 Snoring 11/15/2023 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) 12/30/2019 Suspected severe acute respiratory syndrome coronavirus 2 (SARS-CoV-2) infection 06/12/2023 SVT (supraventricular tachycardia) ([facility]) 08/26/2019 Syncope and collapse 06/03/2018 Other bacterial infections of unspecified site 06/27/2019 Thrombocytopenia, unspecified 11/20/2019 Hypoglycemia 06/12/2023 Unspecified condition associated with female genital organs and menstrual cycle 05/09/2019 Unspecified ovarian cyst, right side 02/06/2019 Urinary tract infection 10/16/2019 Referred otalgia of right ear 11/19/2023 LPRD (laryngopharyngeal reflux disease) 11/19/2023 H/O loss 01/05/2025 Multigravida of advanced maternal age in second trimester ([facility]) 01/05/2025 Thyroid disease 01/05/2025 Resolved Ambulatory Problems Diagnosis Date Noted No Resolved Ambulatory Problems Past Medical History: Diagnosis Date AMA (advanced maternal age) multigravida 35+ ([facility]) Anemia Antiphospholipid syndrome ([facility]) Gestational diabetes ([facility]) [...] drainage of cyst WISDOM TOOTH EXTRACTION 2007 [place] teeth REVIEW OF SYSTEMS Review of Systems: [...] nursing note reviewed. Exam conducted with a e marketing specialist present. Vitals: Estimated body mass index is 33.73 kg/m as calculated from the following: Height as of 11/19/23: 5' 6 . Weight as of this encounter: 209 lb. BP: 122/74 Patient's last menstrual period was 07/28/2024. ASSESSMENT & PLAN ICD-10-CM 1. Second trimester ([facility]) Z34.92 POCT urinalysis dipstick manually resulted 2. 23 weeks gestation of ([facility]) Z3A.23 3. Thyroid disease E07.9 Echocardiogram 2D complete ECG 12 lead unit performed Echocardiogram 2D complete 4. Gestational diabetes mellitus (GDM), antepartum, gestational diabetes method of control unspecified ([facility]) O24.419 Echocardiogram 2D complete ECG 12 lead unit performed Echocardiogram 2D complete 5. Multigravida of advanced maternal age in second trimester ([facility]) O09.522 Echocardiogram 2D complete ECG 12 lead unit performed Echocardiogram 2D complete 6. H/O loss Z87.59 7. Lightheaded R42 Echocardiogram 2D complete ECG 12 lead unit performed Echocardiogram 2D complete 8. Dizziness R42 Echocardiogram 2D complete ECG 12 lead unit performed Echocardiogram 2D complete Patient presents today for a routine obstetrics appointment. Patient is currently 23w0d with a Estimated Date of Delivery: 05/04/25. Discussed recent MFM appointment and also hematology recommendations. Maternal Medicine are performing referrals on patients behalf to rheumatology. Patient to return to clinic in 2 weeks. Patient voiced that she is having dizziness/lightheaded spells, EKG & Echo order given to patient to have done. Paatient to continue to have MFM monitor glucose levels and management. Documented by Rosi Murray LPN on behalf of: Wilton Herrmann DO documented in this encounter [facility] 01-05-2025 History of Present illness Narrative NPH insulin prior authorization approved. Confirmed via telephone call with automated voice messaging system. Prior authorization number #[id number] documented [facility] this encounter [facility] 01-01-2025 History of Present illness Narrative Images from the original note were not included. Video Visit via Real-time Synchronous Audiovisual Provider Location: [facility] AT [address] [address] Patient Location: Other [place] Office Patient Location Family Nurse Practitioner: None Video Visit Consent Statement: I discussed risks, benefits, and alternatives of a real-time synchronous audiovisual consultation with the patient (and any accompanying persons) including the risks that the patient's personal health details and medical records will be discussed over real-time, synchronous, interactive video/audio/telecommunication technology, the visit will not be recorded without the express consent of both the provider and the patient, and that there are some limitations compared to [id number] evaluations. We elected to proceed. [facility] Maternal- Medicine Consult Note Reason For Consult: multiple issues HPI: Sanna Rendon is a 39 y.o. at 22w3d with Estimated Date of Delivery: 05/04/25 Chief Complaint Patient presents with MFM consult I have reviewed the pertinent available patient records including but not limited to notes, labs and images She presents today with her partner. She reports normal movements and she denies leakage of fluid, contractions or vaginal bleeding. She denies fever, chills, nausea, vomiting, shortness of breath, chest pain, headache, blurry vision, right upper quadrant pain or edema. Complications: Antiphospholipid antibody syndrome with history of CVA on prophylactic Lovenox. She declines low-dose aspirin. She has been on Plavix for approximately year and a half and had bled heavily on aspirin preceding this. In the past she also has tried Xarelto and Coumadin Sees Neurology Dr. Jorge Monge. Sees Hematology Oncology Dr. Negrete The patient has been recommended 80 mg of Lovenox however she is only taking 40 and has a accepted risks with that. Overall she has been experiencing low-grade fevers facial redness and sore to touch intermittently since 2023. 07/01/24: Anticardiolipin IgG elevated, SSA and SSB negative, NASEEM neg, negative double-stranded DNA antibodies, anti-Brianna neg, anti-smooth neg, CRP negative, ESR neg GDMA2 - on metformin. HgbA1C 5.9% 10/06/24. She was concerned about allergic reaction with the Lantus NPH has been prescribed but she has not started taking it Advanced maternal age Hypothyroidism on synthroid last TSH 1.25 History of prior losses History of hemorrhage History of a 17 week loss likely due to abruption (in that the patient had heavy vaginal bleeding and multiple hematomas) Family history of autism in both of her daughters. Her one daughter we will be undergoing genetic testing through the bridge instructor. There is family history of hypospadias and ? Lowering the malacia in her 2 sons Obesity History of abnormal electrolytes she has a history of hyponatremia and hypokalemia Cell free DNA: low risk, male Carrier [...] Anemia Antiphospholipid antibody syndrome Cerebral infarction, unspecified ([facility]) 05/16/2019 Hypothyroid Migraine without aura and without status migrainosus, not intractable 09/12/2017 Stroke ([facility]) 2016 PSHIST: Past Surgical History: Procedure Laterality [...] before testing blood glucose., Disp: , Rfl: blood sugar diagnostic (glucose [...] ., Disp: , Rfl: blood-glucose sensor (FREESTYLE JENIFER 3 PLUS SENSOR) device, Wear for 15 days and change, Disp: 2 each, Rfl: 6 docusate sodium (COLACE) 100 mg capsule, Take 1 capsule (100 mg total) by mouth in the morning., Disp: , Rfl: lancets misc, 1 each in the morning and 1 each at noon and 1 each in the evening and 1 each before bedtime. Use to check blood sugar 4 times daily., Disp: , Rfl: levothyroxine (SYNTHROID) 25 MCG tablet, Take 1 tablet (25 mcg total) by mouth in the morning., Disp: , Rfl: pen needle, diabetic (BD ULTRA-FINE ENID PEN NEEDLE) 32 gauge x 5/32 needle, Use a new needle with each injection ( 1- 5 times per day), Disp: 100 each, Rfl: 3 polyethylene glycol (GLYCOLAX) 17 gram packet, Take 17 g by mouth in the morning., Disp: , Rfl: 19 29 mg iron- 1 mg tablet,chewable, Chew 1 tablet and swallow in the morning., Disp: , Rfl: 6 azithromycin (ZITHROMAX) 250 mg tablet, Take 1 tablet (250 mg total) by mouth in the morning. Take 2 tablets the first day, then 1 tablet daily for 4 days., Disp: , Rfl: CEPHalexin (KEFLEX) 500 mg capsule, Take 1 capsule (500 mg total) by mouth in the morning and 1 capsule (500 mg total) at noon and 1 capsule (500 mg total) in the evening and 1 capsule (500 mg total) before bedtime., Disp: , Rfl: enoxaparin sodium (LOVENOX SUBQ), Inject 40 mg under the skin in the evening., Disp: , Rfl: insulin NPH (HumuLIN N,NovoLIN N) 100 unit/mL injection, Inj sbq in abd 8 units nightly (Patient not taking: Reported on 01/01/2025), Disp: 10 mL, Rfl: 6 metFORMIN XR (GLUCOPHAGE XR) 500 mg 24 hr tablet, Take 1500 mg at night., Disp: 90 tablet, Rfl: 4 progesterone (PROMETRIUM) 200 mg capsule, Take 1 [...] Housing Instability: Not on file Physical Exam: Vital Signs Vitals: 01/01/25 1422 BP: 114/70 Weight: 95.3 kg (210 lb) Physical Exam: Video visits Gen: Not in acute distress, alert and oriented. Notes/Imaging/Labs reviewed No visits with results within 1 Month(s) from this visit. Latest known visit with results is: Support Visit on 11/19/2024 Component Date Value Ref Range Status External Glucose Fasting Or Rando* 11/19/2024 94 Final Ultrasound findings Pertinent Ultrasound findings are see report Assessment/Plan 39 y.o. @ at 22w3d with Estimated Date of Delivery: 05/04/25 here for consultation regardin. 22 weeks gestation of - Echo complete W/O contrast; Future - [facility] [place], [place]; Future 2. Antiphospholipid syndrome complicating , antepartum - Echo complete W/O contrast; Future - [facility] - [place], [place]; Future 3. History of stroke 4. History of loss in prior , currently in second trimester Antiphospholipid antibody syndrome with history of CVA on prophylactic Lovenox. She declines low-dose aspirin. She has been on Plavix for approximately year and a half and had bled heavily on aspirin preceding this. In the past she also has tried Xarelto and Coumadin Sees Neurology Dr. Jorge Monge. Sees Hematology Oncology Dr. Negrete The patient has been recommended 80 mg of Lovenox however she is only taking 40 and has a accepted risks with that. Overall she has been experiencing low-grade fevers facial redness and sore to touch intermittently since 2023. 07/01/24: Anticardiolipin IgG elevated, SSA and SSB negative, NASEEM neg, negative double-stranded DNA antibodies, anti-Brianna neg, anti-smooth neg, CRP negative, ESR neg We reviewed that patients with APLS in are generally managed with low molecular weight heparin and aspirin. She declines aspirin. Adverse outcomes include but not limited to growth restriction and stillbirth, placental insufficiency, preeclampsia, increase risk for DVT/VTE events were reviewed. She understands that she is at an increased risk of having stroke again. I reviewed that low-molecular weight heparin may still not prevent this adverse outcomes. Risk of Lovenox reviewed. Can rediscussed transitioning to heparin in the 3rd trimester prior to delivery. She will be candidate for surveillance and growth ultrasounds. Education given on VTE/DVT event. Education given on stroke. She needs to closely follow-up with the Hematology and Neurology She has been complaining also of intermittent symptoms concerning for an autoimmune condition since 2023. I recommended she sees a banking management consulting manager. Referral given. I asked her to hold her Lovenox should she start having signs of labor or bleeding and to seek care. She has a history of a prior loss I suspect it was likely due to bleeding. However she also tells me that in another she was found to be dilated from 24 weeks of but then went to term. She has normal cervical length today. Echocardiogram recommended 5. Gestational diabetes mellitus (GDM) in second trimester controlled on oral hypoglycemic drug We first started discussing the pathophysiology of metabolic syndrome and gestational diabetes and how it affects her care. We informed the patient that gestational diabetes is a state of carbohydrate intolerance with subsequently insulin resistance and hyperglycemia. We reviewed the implications and risks of diabetes in . Diabetes in is associated with poorer outcomes if blood glucose levels are not well controlled. Adverse outcomes associated with uncontrolled diabetes include but not limited to miscarriage, congenital anomalies, macrosomia, polyhydramnios, hypoglycemia which can cause coma or seizures, shoulder dystocia, delivery by section, polycythemia, jaundice, respiratory insufficiency, NICU admission, stillbirth. In addition, women with diabetes in are at increased risk of developing hypertension diseases in . Also patients with gestational diabetes have high-risk of a section and infection. Primary is recommended if the estimated weight is 4500 g or higher. In addition there is a long-term risk of developing type 2 diabetes which can be as high as 70-80%. Therefore she will need to be screened with a 2 hour oral glucose tolerance test around 6 weeks and close follow-up with the PCP long-term is recommended. Continues to have elevation in her fastings. She is also not eating enough carbs with her meals. She is on metformin and accepts risks. She declined Lantus but is open to try NPH and prescription has been sent. Metformin dose increase to 1500 mg at night. Glucose goals in : Fasting 65 - 95: Mean fasting glucose values are important in managing diabetes in women because they provide overall glycemic estimate, and are predictive of increased fat mass in the women s offspring. Increased fat mass has been shown to be associated with the development of childhood obesity, and diabetes. One hour postprandial 90 - 140: Postprandial measurements are important in management of diabetes in because they are associated with incidence of large for gestational age infants, and lower rates of delivery for cephalopelvic disproportion when well controlled. Discussed monitoring for hypogylcemia, and treatment of [...] limit risk of hyperglycemia without knowing her BG Also requested she check fasting BG levels 8-10hrs from last eating. Given GDMA2, can monitor patient's BG every 4hrs during latent labor, every 1 hr during active labor with goal BG to be less than 140mg/dl. Can use insulin sliding scale prn hyperglycemia. 6. Multigravida of advanced maternal age in second trimester - Echo complete W/O contrast; Future Low risk cell free DNA 7. Hypothyroidism affecting in second trimester In regards to her hypothyroidism, although profound hypothyroidism is associated with an increase in numerous complications including miscarriage, premature delivery, placental abrutpion, preeclampsia, growth restriction, and neuro psychological and cognitive impairments, these risks are quite avoidable with routine replacement to a euthyroid state. She should have regular screening over the balance of her (typically every 4-6 weeks) with adjustments in her medication dose to maintain a euthyroid state. Specifically you should attempt to maintain TSH values less than 2.5 mU/L. After delivery, the dose of the thyroxine should be reduced to pre- levels and TSH measured 6 to 8 weeks later. Monitoring of thyroid function through primary OB 8. Family history of autism Risk of recurrence discussed. Declines amniocentesis. Her daughter is supposed to undergo genetic testing with her bridge instructor. After the patient left I found that in the records there was a concern for hypospadias and laryngomalacia in her male children. evaluation for the baby is recommended 9. Hyponatremia She tells me that she has been intermittently experiencing long standing electrolyte disturbances such as hyponatremia and hypokalemia. Salt supplementation and potassium supplementation reviewed. She is currently asymptomatic I recommend that she sees a fiber worker and she desires referral locally. Recommendations: - increase metformin to 1500 mg at night - she is willing to try the NPH 8 units at night - to continue to send blood glucoses to [facility] to review - follow-up survey and echocardiogram scheduled - continue Lovenox - The patient to continue to follow with Hematology and Neurology - nephrology referral recommended - serial growth [...] of long-acting insulin the night before delivery - discontinue insulin and metformin. To have 2 hours oral glucose tolerance test around 6-8 weeks after delivery - monitor her thyroid function every 4-6 weeks and adjust Synthroid with a goal of TSH less than 2.5; go to the prepregnancy dose of Synthroid -maternal echocardiogram ordered Continue to address contraception and planning. Her partner is interested in vasectomy. Further recommendations to be made by M as the progresses Plan reviewed with patient. She vocalized understanding all questions answered. The patient is to continue with routine care in your office Thank you for allowing me to participate in her care. Please contact me if you have any concerns. Mukul Nooyla MD, FACOG (she/hers) Maternal- Medicine [facility] [address] [place] [address] This document was created with [employer] technology. Though I make every effort to review the dictation as it is transcribed, on occasion the spoken word can be misinterpreted by the technology leading to inappropriate words, phrases, or sentences. This note is addressed to the requesting provider as a consultation for clinical guidance. Specific medical abbreviations are occasionally used and those are generally approved by the [place]?Board of?Obstetrics and?Gynecology?as well as?Elizabeth guzman abbreviations. The above plan of care was based solely on the diagnoses for which a consultation was requested. ?More frequent testing may be indicated based on her other medical/obstetrical conditions. The management of other or medical conditions is beyond the scope of requested consultation and will continue to be followed by the primary aircraft structural repairer or primary care provider. Note to patient: The Century Cures Act makes medical notes like these available to patients in the interest of transparency. However, be advised this is a medical document. It is intended as peer to peer communication. It is written in medical language and may contain abbreviations or verbiage that are unfamiliar. It may appear blunt or direct. Medical documents are intended to carry relevant information, facts as evident, and the clinical opinion of the practitioner. Headache/epigastric pain/blurry vision/swelling? denies Cramping/contractions? denies Spotting/vaginal bleeding? denies Loss or gush of fluid like your water may have broken? denies Do you have cats at home? denies Do you change the litter box (reason: risk of toxoplasmosis)? Genetic testing done this here or other office? NIPTS > low risk > male Have you been seen here at [facility] in a previous ? yes Recent ER visits or hospitalizations? Seen in L&D for cramping about 2 weeks ago Bring blood sugar log or meter with you today? (Please bring them with you for every visit at [facility]) scanned to media tab Flu vaccine (Feb-June)? no Any concerns that you would like me to mention to the provider today? No concerns documented in this encounter [facility] 12-26-2024 Miscellaneous Notes Called patient regarding blood sugar log from 12/15 to 12/21/24 that we received yesterday. Also obtained the more recent BG data from the patient for the past 5 days. Her pp values are all in target. However, all of her fasting glucoses from the past 12 days have remained high (100 - 114 mg/dL) despite taking 1000 mg of metformin XR each evening. Will be discussing her log (as well as her unusual reaction to Lantus when she took it one time on December 11) with Dr. Noyola, who will be seeing patient via video visit on 01/01/25. Patient states that she is open to increased metformin. She is nervous about trying insulin again because it was a scary experience. Discussed case with Dr. Noyola about possibly ordering patient a CGM since her insurance will cover, and she agreed to this. Dr. Noyola would like the patient to try a different kind of insulin. Will call patient to see if she is agreeable. 1:40 pm: Patient is willing to try NPH and a Jenifer 3+ CGM. All patient questions answered and basics of CGM explained. Will send [employer] message with instructions on how to connect to our Jenifer clinic account. Explained how to prudence notes on the Jenifer kennedy for fasting BG and meals. documented in this encounter [facility] 12-26-2024 Telephone encounter Note Called patient regarding blood sugar log from 12/15 to 12/21/24 that we received yesterday. Also obtained the more recent BG data from the patient for the past 5 days. Her pp values are all in target. However, all of her fasting glucoses from the past 12 days have remained high (100 - 114 mg/dL) despite taking 1000 mg of metformin XR each evening. Will be discussing her log (as well as her unusual reaction to Lantus when she took it one time on December 11) with Dr. Noyola, who will be seeing patient via video visit on 01/01/25. Patient states that she is open to increased metformin. She is nervous about trying insulin again because it was a scary experience. Discussed case with Dr. Noyola about possibly ordering patient a CGM since her insurance will cover, and she agreed to this. Dr. Noyola would like the patient to try a different kind of insulin. Will call patient to see if she is agreeable. 1:40 pm: Patient is willing to try NPH and a Jenifer 3+ CGM. All patient questions answered and basics of CGM explained. Will send [employer] message with instructions on how to connect to our [facility]ifer clinic account. Explained how to prudence notes on the Jenifer kennedy for fasting BG and meals. [employer] 12-23-2024 Note HNO ID: [id number] Author: KATHERINE NEGRETE APRN.BILINGUAL INTERPRETER Service: ? Author Type: Nurse Practitioner Type: Progress Notes Filed: 12/24/2024 21:07 Note Text: NAME: Sanna Rendon CLINIC NO.: [id number] DATE OF SERVICE: December 23, 2024 (Arsh) Some elements in this clinic note that are critical to medical decision making have been carefully reviewed and included from a prior clinic note dated: October 28, 2024 (Arsh) Additional Clinicians involved in Sanna Rendon's care: Drs. Herrmann, Jorge Monge, Humaira Gaviria, Dr. Boothe CC: Hypercoag state CASE SUMMARY / ASSESSMENT: 39 year old woman presents with a prior history of CVA in 2016 and an antiphospholipid antibody that was identified much later in 2018. These were found in [place], [place]. I don't have access to these [...] a target-like rash shortly before presenting to [facility] [place] [facility] in 2015 with headaches and was [...] of April 2024. SUMMARIZED PLAN OF CARE: Continue Lovenox - patient prefers 40 mg (rather than rec 80mg) Encouraged her to reconsider Continue B12 RTC in 8 weeks Labs same day ___ HPI: Updated Visit, December 23, 2024: Patient is a 39-year-old female, , currently 21 weeks , with a history of gestational diabetes, APS, and CVA, managed with Lovenox and metformin ER 1000 mg. She reports developing a hematoma at the injection site (right lateral mid abdomen) after administering Lovenox, noting that the area is softening. She was in a hurry and may have injected the medication faster than usual. She is currently on metformin ER 1000 mg for gestational diabetes, with fasting blood glucose levels over 100 mg/dL and postprandial levels under 100 mg/dL. She initially experienced cramping for two days after the dosage increase but denies any diarrhea. She previously had an adverse reaction to Lantus, including tachycardia, dyspnea, diaphoresis, and low-grade fevers, leading to its discontinuation. She has a history of severe electrolyte imbalances after taking baby aspirin, including significant hyponatremia and hypokalemia accompanied by symptoms such as feeling unwell, slurred speech, and abnormal heart rhythms. These episodes led to emergency room visits. She is concerned about the potential recommendation to resume baby aspirin due to her history of APS and advanced maternal age. She was recently evaluated in labor and delivery for cramping, given her history of cervical dilation at 24 weeks in a previous . She was not found to be dilated during this visit. She has not yet had her anatomy scan or maternal- medicine (MFM) consultation regarding her blood thinners. Her hemoglobin level has decreased from 13 g/dL on October 28 to 12 g/dL today. Platelet count is stable at 260,000/?L, and white blood cell count is within normal limits. Previous vitamin D level was 32.1 ng/mL. She is currently taking vitamins. Updated Visit, 10/28/2024: Patient with a history [...] 109/L, hemoglobin at 13 g/dL, and platelets a (more content not included)... [facility] 12-23-2024 History of Present illness Narrative Images from the original note were not included. NAME: Sanna Rendon CLINIC NO.: [id number] DATE OF SERVICE: December 23, 2024 (Arsh) Some elements in this clinic note that are critical to medical decision making have been carefully reviewed and included from a prior clinic note dated: October 28, 2024 (Arsh) Additional Clinicians involved in Sanna Rendon's care: Drs. Herrmann, Jorge Monge, Humaira Gaviria, Dr. Boothe CC: Hypercoag state CASE SUMMARY / ASSESSMENT: 39 year old woman presents with a prior history of CVA in 2016 and an antiphospholipid antibody that was identified much later in 2018. These were found in [place], [place]. I don't have access to these [...] a target-like rash shortly before presenting to [facility] [place] [facility] in 2015 with headaches and was [...] of April 2024. SUMMARIZED PLAN OF CARE: Continue Lovenox - patient prefers 40 mg (rather than rec 80mg) Encouraged her to reconsider Continue B12 RTC in 8 weeks Labs same day HPI: Updated Visit, December 23, 2024: Patient is a 39-year-old female, , currently 21 weeks , with a history of gestational diabetes, APS, and CVA, managed with Lovenox and metformin ER 1000 mg. She reports developing a hematoma at the injection site (right lateral mid abdomen) after administering Lovenox, noting that the area is softening. She was in a hurry and may have injected the medication faster than usual. She is currently on metformin ER 1000 mg for gestational diabetes, with fasting blood glucose levels over 100 mg/dL and postprandial levels under 100 mg/dL. She initially experienced cramping for two days after the dosage increase but denies any diarrhea. She previously had an adverse reaction to Lantus, including tachycardia, dyspnea, diaphoresis, and low-grade fevers, leading to its discontinuation. She has a history of severe electrolyte imbalances after taking baby aspirin, including significant hyponatremia and hypokalemia accompanied by symptoms such as feeling unwell, slurred speech, and abnormal heart rhythms. These episodes led to emergency room visits. She is concerned about the potential recommendation to resume baby aspirin due to her history of APS and advanced maternal age. She was recently evaluated in labor and delivery for cramping, given her history of cervical dilation at 24 weeks in a previous . She was not found to be dilated during this visit. She has not yet had her anatomy scan or maternal- medicine (MFM) consultation regarding her blood thinners. Her hemoglobin level has decreased from 13 g/dL on October 28 to 12 g/dL today. Platelet count is stable at 260,000/ L, and white blood cell count is within normal limits. Previous vitamin D level was 32.1 ng/mL. She is currently taking vitamins. Updated Visit, 10/28/2024: Patient with a history [...] soon. When she had a stroke in [place], she had symptoms up to a month [...] and stayed on Lovenox Hgb 13.1 @ [facility] Recommended ER if persisting bleeding [...] and at age 69. Both lived in [facility] but she was adopted. She was not able to see ID in October and will be seeing Dr. Blank next week. Also will have her see Dr. Hamlin for her clotting disorder and make any other recommendations to optimize her treatment. Updated Visit, October 08, 2020: Telephone only Received call from pt stating she was seen in [facility] ER for numbness in her chest, throat, and extremities, and sob which has been worsening over the last week. We arranged a telephone visit for her to review questions with me. Sanna Rendon is a 34 year old female seen for Hypercoagulable state and recent concerns and symptoms that required her to be seen at [facility] ER. She went to the ER with Gradual worsening of breathing after progressive tingling of fingers and legs. She currently remains very fatigued even though she is sleeping well. Now recalls that before her stroke she remembers having a bull's eye rash and was seen with severe headaches in [place], [place] - was found to have a [...] a root canal and was sent to [facility] for MRI which was negative [...] history goes back to January 2016 in [facility] where she had persisting headaches and slurred speech followed by lower extremity weakness. This took a few months to resolve and she is back to her normal state of being but some point in time during her her next she was seen by Dr. Humera Hyde in [place] as well and was found to have [...] PERFORMANCE STATUS: 0 PHYSICAL EXAMINATION: Vitals: BP 103/69 Pulse 80 Temp (Src) 97.6 (Temporal) Resp 16 Ht 5' 6.024 (1.68m) Wt 208 lb 1.8 oz (94.4kg) SpO2 98% LMP 10/28/2024 BMI 33.57 kg/(m^2). Body surface area is 2.1 meters squared. Exam limited to gross visualization [...] gassy MEDICATIONS: levothyroxine (SYNTHROID) 25 mcg tablet TAKE 1 TABLET BY MOUTH IN THE MORNING BEFORE MEAL(S) enoxaparin (LOVENOX) 40 mg/0.4 mL INJECT 1 SYRINGE SUBCUTANEOUSLY EVERY 24 HOURS progesterone vaginal suppository 200 mg (CPD) Use 200 mg vaginally. Unwrap and insert as directed. polyethylene glycol 3350 (MIRALAX PO) Take by mouth. docusate sodium (COLACE PO) Take by mouth. metFORMIN ER (GLUCOPHAGE XR) 500 mg 24 hr tablet multivitamin tablet Take 1 tablet by mouth once daily. LABORATORY VALUES: WBC (k/uL) Date Value 12/23/2024 8.55 RBC (m/uL) Date Value 12/23/2024 3.80 (L) Hemoglobin (g/dL) Date Value 12/23/2024 12.0 Hematocrit (%) Date Value 12/23/2024 34.6 (L) MCV (fL) Date Value 12/23/2024 91.1 MCH (pg) Date Value 12/23/2024 31.6 MCHC (g/dL) Date Value 12/23/2024 34.7 RDW-CV (%) Date Value 12/23/2024 13.5 Platelet Count (k/uL) Date Value 12/23/2024 260 MPV (fL) Date Value 12/23/2024 9.7 Glucose (mg/dL) Date Value 12/23/2024 104 (H) BUN (mg/dL) Date Value 12/23/2024 7 Creatinine (mg/dL) Date Value 12/23/2024 0.54 (L) Sodium (mmol/L) Date Value 12/23/2024 130 (L) Potassium (mmol/L) Date Value 12/23/2024 4.0 Chloride (mmol/L) Date Value 12/23/2024 98 CO2 (mmol/L) Date Value 12/23/2024 20 (L) Protein, Total (g/dL) Date Value 12/23/2024 6.7 Albumin (g/dL) Date Value 12/23/2024 4.1 Calcium, Total (mg/dL) Date Value 12/23/2024 9.5 Alkaline Phosphatase (U/L) Date Value 12/23/2024 43 Bilirubin, Total (mg/dL) Date Value 12/23/2024 0.2 AST (U/L) Date Value 12/23/2024 12 (L) ALT (U/L) Date Value 12/23/2024 11 DIAGNOSIS: (R76.0) Antiphospholipid antibody positive (primary encounter diagnosis) (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 Katherine Negrete APRN.[facility] Hematology and Oncology Services Provided at: [place], [place] CC: MD Wilton Day, DO [address] [place] [address] Humaira Gaviria MD [address] [facility] [place] [address] MD Cosmo Kingston MD Michael Blank, MD documented in this encounter [facility] 12-17-2024 History of Present illness Narrative REASON FOR OFFICE VISIT: Video Visit via Real-time Synchronous Audiovisual Provider Location: [facility] AT [address] [address] Patient Location: Patient's home Video Visit Consent Statement: I discussed risks, benefits, and alternatives of a real-time synchronous audiovisual consultation with the patient (and any accompanying persons) including the risks that the patient's personal health details and medical records will be discussed over real-time, synchronous, interactive video/audio/telecommunication technology, the visit will not be recorded without the express consent of both the provider and the patient, and that there are some limitations compared to [id number] evaluations. The patient consented to the presence of additional virtual and/or in-person participants. We elected to proceed. 1. GDMA2; A1c 5.9% 2. On Metformin since 4th child 3. Hx GDMA2 4. AMA - cf DNA low risk boy 5. Hx strokes HISTORY OF PRESENT ILLNESS: Sanna Rendon is a pleasant 39 y.o. at 20w2d due on Estimated Date of Delivery: 05/04/25. Currently the patient reports ABD pain and she was in the OB triage last night for ABD cramping. She reports hx of ABD side effects (cramping/ diarrhea) when her metformin was at 1000 mg. She reports she has not been taking insulin due to a reaction that she reported to the M office after her first dose and she is not taking the metformin as indicated on her med rec due to poor supply. She has not been taking 500 mg in am and only 1000 mg at night for 3 consecutive nights Wifi connection is poor for communication and clarity; patient did not start insulin on the 6th as discussed. She talked to her OB and took the insulin for the first time on the . Logs received with 2nd appointment attempt as seen in media She reports that the one day she took the ER Metformin with dinner her PP dinner was higher at 146. She has only been taking 1000 mg ER at night for 2 nights not the 500 mg in the am as previously prescribed. Logs revealed fasting levels 103-116 PP levels 79-146 Past Medical History PAST OBSTETRICAL HISTORY: OB [...] mg by mouth daily., Disp: , Rfl: insulin glargine (LANTUS SOLOSTAR U-100 INSULIN) 100 unit/mL (3 mL) insulin pen, Prime with 2 units then inject 4 units SQ into abd, Disp: 15 mL, Rfl: 3 lancets misc, 1 each in the morning and 1 each at noon and 1 each in the evening and 1 each before bedtime. Use to check blood sugar 4 times daily., Disp: , Rfl: levothyroxine (SYNTHROID) 25 MCG tablet, Take 25 mcg by mouth daily., Disp: , Rfl: metFORMIN XR (GLUCOPHAGE XR) 500 mg 24 hr tablet, Take 500 mg in the morning and 1000 mg at night., Disp: 90 tablet, Rfl: 4 pen needle, diabetic (BD ULTRA-FINE ENID PEN NEEDLE) 32 gauge x 5/32 needle, Use a new needle with each injection ( 1- 5 times per day), [...] TSH 1.25 10/28/2024 No results found for: [id number] No results found for: CREATININE , BUN [...] and vaginal discharge PHYSICAL EXAMINATION: LMP 07/28/2024 Gravid abdomen, Alert & Oriented. Respirations not labored. DISCUSSION: Fasting levels are elevated but improving with metformin 1000 mg ER dose each evening Importance of good blood sugar control was emphasized. The potential effects of uncontrolled diabetes before and during on herself were discussed including: preeclampsia, induced hypertension, labor, , and polyhydramnios. Potential effects on baby were explained: stillbirth, miscarriage, macrosomia, jaundice, trauma, hypoglycemia, respiratory distress and hypocalcemia. Insulin-dependent diabetes mellitus and its effect on was reviewed. This means there is an insulin deficiency requiring exogenous insulin to keep a euglycemic state. causes hyperglycemia in various ways. Placental hormones: human placental lactogen and TNF alpha can eventually hasten insulin resistance and hyperglycemia. Risks were reviewed to including: spontaneous loss, congenital malformations with HgA1c results .8.5 at time of conception and altered growth. High HbA1c is associated with increased risk of neural tube defects. 1st trimester screen is an ideal risk assessment tool to identify for congenital heart defects as well as aneuploidy around 12 wks' gestation followed by the maternal serum AFP in the 2nd trimester and then the 20-week anatomic survey. Maternal hyperglycemia results in hyperglycemia causing adverse growth and development. Macrosomia and excess fat deposits in the fetus lead to excess insulin being released from the pancreas. Relative oxygen deficiency can cause polycythemia leading to slugging in small capillaries which if happens in the brain may cause seizures. Hyperbilirubinemia may also result due to rapid destruction of surplus red blood cells after the has been delivered. Achieving a euglycemic state is the best preventative strategy. This can be done through close contact with M diabetic: via weekly glucose review either by Logs or CGM. Baseline urine protein creatinine ratio along with preeclampsia labs are recommended in early in (ideally 1st trimester) to help detect a diagnosis of pre-eclampsia. Pre-existing diabetic patients are at increased risk for developing hypertensive disorders of including preeclampsia. testing is also initiated around 32 wks due to the increased risk of still . Generally after 39 weeks gestation, we prefer to have a planned delivery in view of increased risk of demise. Earlier delivery may be necessitated due to a diagnosis of maternal preeclampsia, for which the risk of which is elevated in diabetic pregnancies. Also, if the infant is large, which can still happen despite good glycemic control, there is an increased risk of maternal and trauma. This is defined as EFW greater than 4500 gm. An elective delivery can be offered when the EFW is > 4500 gm at term to reduce the risk of shoulder dystocia. Long-term risk to offspring from poor maternal glycemic control include: obesity, cardiovascular disease, impaired glucose tolerance and Type 2 diabetes were reviewed. Recommended carbohydrate allocation ranges: 30-45 g for breakfast, 45-60 g for lunch and dinner, and 15-g snacks roughly 2-3 hours after each meal. A1c less than 6% has the lowest risk for LGA SUMMARY/RECOMMENDATION: The following is a summary of our recommendations: 1. Blood work: Per primary Ob in the presence of concerning s/s 2. Medication: Metformin 1000 mg ER Other medications as above 3. testin wk anatomy scan w/ echo Twice weekly NST w/ weekly DVP at 32 weeks growth ultrasounds every 4 weeks starting at 28 weeks 4. Follow-up appointment: In 4 weeks to Maternal- Medicine. I asked her to keep sending values to us weekly by e-mail to: [email or web address] or by fax to: [phone] TIME OF CONSULTATION: 45 minutes with the patient, >50% in discussion and counseling, coordination of care which was [id number], review of records and communication back to referring provider. BRENNEN Guillen 12/17/24 1619 documented in this encounter [facility] 12-12-2024 Miscellaneous Notes Called Sanna back told [...] Sanna verbalized understanding. documented in this encounter [facility] 12-12-2024 Telephone encounter Note Called Sanna back [...] Alisa Saba APRN 12/17/2024. Sanna verbalized understanding. [email or web address] Work Phone: 12-12-2024 Miscellaneous Notes Called Sanna [...] tried higher fiber snacks in the evening. Sales Account Executive told her that I would relay her concerns to a [facility] physician and get back to her. Obtained blood sugars for this week and will scan them into her chart. [facility] 12-12-2024 Telephone encounter Note Called Sanna regarding [...] tried higher fiber snacks in the evening. Sales Account Executive told her that I would relay her concerns to a [facility] physician and get back to her. Obtained blood sugars for this week and will scan them into her chart. [employer] Work Phone: 12-11-2024 History of Present illness [...] Diagnosis Date Noted 32 weeks gestation of ([facility]) 11/28/2019 Abdominal pain 06/12/2023 Acute bronchitis due to infection 06/12/2023 Acute on chronic vesicular eczema of hands and feet 11/15/2023 Anemia complicating childbirth ([facility]) 01/16/2020 Anticoagulant long-term use 02/22/2020 Antiphospholipid antibody positive 09/10/2017 Antiphospholipid antibody syndrome ([facility]) 07/07/2019 Anxiety 06/12/2023 Blood pressure elevated without history of HTN 11/15/2023 BMI 37.0-37.9, adult 11/15/2023 Cerebral infarction, unspecified ([facility]) 05/16/2019 Cerebrovascular accident (CVA) due to stenosis of middle cerebral artery ([facility]) 02/22/2020 Cervicalgia 02/05/2019 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 ([facility]) 01/08/2020 Coagulation defect, unspecified ([facility]) 02/05/2019 Cold intolerance 11/15/2023 Deficiency of other specified B group vitamins 05/16/2019 Deviated septum 11/15/2023 Dizziness and giddiness 02/05/2019 Dry mouth 11/15/2023 Dysfunction of eustachian tube 06/12/2023 Dyspnea 06/12/2023 Elevated blood pressure reading 11/15/2023 Encounter for supervision of normal , unspecified, first trimester ([facility]) 05/29/2019 Environmental allergies 11/15/2023 Fatigue 12/29/2016 First degree perineal laceration during delivery ([facility]) 01/16/2020 Frequency of micturition 02/19/2019 Genitourinary symptoms 08/19/2021 Gestational diabetes mellitus (GDM) affecting ([facility]) 01/26/2022 H/O: hypothyroidism 11/15/2023 Hematochezia 06/12/2023 [...] anemia 01/16/2020 Irregular uterine bleeding 11/15/2023 problem ([facility]) 06/12/2023 Less than 8 weeks gestation of ([facility]) 06/05/2019 FPC (current) use of 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/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 02/05/2019 Migraine without aura and without status migrainosus, not intractable 09/12/2017 Morbid obesity ([facility]) 11/15/2023 Muscle fasciculation 08/19/2021 Nasal polyps 11/15/2023 Non-smoker 11/15/2023 NEETA (obstructive sleep apnea) 11/15/2023 Other acute postprocedural pain 02/03/2019 Other general symptoms and signs 10/28/2019 Other immediate hemorrhage ([facility]) 01/16/2020 Other specified noninflammatory disorders of vagina 02/21/2019 Pain in joint 12/29/2016 Palpitations 08/26/2019 Paresthesia of bilateral legs 11/15/2023 Pelvic and perineal pain 02/01/2019 Personal history of urinary (tract) infections 01/16/2020 Pre-diabetes 11/15/2023 Primary hypercoagulable state ([facility]) 08/01/2022 Pruritus, unspecified 01/02/2020 Psychogenic hyperventilation 06/12/2023 Raised antibody titer 09/25/2017 Right lower quadrant pain 11/15/2023 Right otitis externa 11/15/2023 Salivary gland swelling 11/15/2023 Single live ([facility]) 01/15/2020 Snoring 11/15/2023 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) 12/30/2019 Suspected severe acute respiratory syndrome coronavirus 2 (SARS-CoV-2) infection 06/12/2023 SVT (supraventricular tachycardia) ([facility]) 08/26/2019 Syncope and collapse 06/03/2018 [...] drainage of cyst WISDOM TOOTH EXTRACTION 2007 [place] teeth REVIEW OF SYSTEMS Review of Systems: [...] nursing note reviewed. Exam conducted with a e marketing specialist present. Vitals: Estimated body mass index is 33.41 kg/m as calculated from the following: Height as of 11/19/23: 5' 6 . Weight as of this encounter: 207 lb. BP: 120/70 Patient's last menstrual period was 07/28/2024. ASSESSMENT & PLAN ICD-10-CM 1. 19 weeks gestation of ([facility]) Z3A.19 POCT urinalysis dipstick manually resulted 2. Second trimester ([facility]) Z34.92 POCT urinalysis dipstick manually resulted 3. Thyroid disease E07.9 4. Multigravida of advanced maternal age in second trimester ([facility]) O09.522 5. Gestational diabetes mellitus (GDM), antepartum, gestational diabetes method of control unspecified ([facility]) O24.419 Patient presents today for a routine [...] scan and Telemedicine with MFM provider in [place]. Documented by Rosi Murray LPN on behalf of: Wilton Herrmann DO documented in this encounter [facility] 12-03-2024 Miscellaneous Notes Left message with patient to call our office to schedule her next appt in 2 week with an COAL HANDLER/PA. Left call back number and to press option 3 for scheduling. documented in this encounter [facility] 12-03-2024 Telephone encounter Note Left message with patient to call our office to schedule her next appt in 2 week with an COAL HANDLER/PA. Left call back number and to press option 3 for scheduling. [facility] 12-03-2024 History of Present illness Narrative [...] starting insulin. She is being followed at [facility] due to GDMA2. States she is following [...] TSH 1.25 10/28/2024 No results found for: [id number] No results found for: CREATININE , BUN [...] baby. Little research has been done on prison effects of Metformin exposure to the fetus. [...] values to us weekly by e-mail to: [email or web address] or by fax to: [phone] TIME OF CONSULTATION: 60 minutes with the patient, >50% in discussion and counseling, coordination of care which was [id number], review of records and communication back to referring provider. BRENNEN Guillen 12/03/24 1500 documented in this encounter [facility] 11-20-2024 History of Present illness Narrative Reason for Appointment: Patient ID: Sanna Rendon is a 39 y.o. female who presents for Routine Visit Patient presents today for Return OB appointment. MEDICATIONS Current Outpatient Medications Medication Instructions Alcohol Swabs (Alcohol Prep Pad) 70 % pads 1 Pad, Topical, Daily, Use four times daily to check FSBS. Blood Glucose Monitoring Suppl (D-ClipMine Glucometer) w/Device kit 1 kit, Does not [...] Diagnosis Date Noted 32 weeks gestation of ([facility]) 11/28/2019 Abdominal pain 06/12/2023 Acute bronchitis due to infection 06/12/2023 Acute on chronic vesicular eczema of hands and feet 11/15/2023 Anemia complicating childbirth ([facility]) 01/16/2020 Anticoagulant long-term use 02/22/2020 Antiphospholipid antibody positive 09/10/2017 Antiphospholipid antibody syndrome ([facility]) 07/07/2019 Anxiety 06/12/2023 Blood pressure elevated without history of HTN 11/15/2023 BMI 37.0-37.9, adult 11/15/2023 Cerebral infarction, unspecified ([facility]) 05/16/2019 Cerebrovascular accident (CVA) due to stenosis of middle cerebral artery ([facility]) 02/22/2020 Cervicalgia 02/05/2019 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 ([facility]) 01/08/2020 Coagulation defect, unspecified ([facility]) 02/05/2019 Cold intolerance 11/15/2023 Deficiency of other specified B group vitamins 05/16/2019 Deviated septum 11/15/2023 Dizziness and giddiness 02/05/2019 Dry mouth 11/15/2023 Dysfunction of eustachian tube 06/12/2023 Dyspnea 06/12/2023 Elevated blood pressure reading 11/15/2023 Encounter for supervision of normal , unspecified, first trimester ([facility]) 05/29/2019 Environmental allergies 11/15/2023 Fatigue 12/29/2016 First degree perineal laceration during delivery ([facility]) 01/16/2020 Frequency of micturition 02/19/2019 Genitourinary symptoms 08/19/2021 Gestational diabetes mellitus (GDM) affecting ([facility]) 01/26/2022 H/O: hypothyroidism 11/15/2023 Hematochezia 06/12/2023 [...] anemia 01/16/2020 Irregular uterine bleeding 11/15/2023 problem ([facility]) 06/12/2023 Less than 8 weeks gestation of ([facility]) 06/05/2019 flame gouger (current) use of 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/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 02/05/2019 Migraine without aura and without status migrainosus, not intractable 09/12/2017 Morbid obesity ([facility]) 11/15/2023 Muscle fasciculation 08/19/2021 Nasal polyps 11/15/2023 Non-smoker 11/15/2023 NEETA (obstructive sleep apnea) 11/15/2023 Other acute postprocedural pain 02/03/2019 Other general symptoms and signs 10/28/2019 Other immediate hemorrhage ([facility]) 01/16/2020 Other specified noninflammatory disorders of vagina 02/21/2019 Pain in joint 12/29/2016 Palpitations 08/26/2019 Paresthesia of bilateral legs 11/15/2023 Pelvic and perineal pain 02/01/2019 Personal history of urinary (tract) infections 01/16/2020 Pre-diabetes 11/15/2023 Primary hypercoagulable state ([facility]) 08/01/2022 Pruritus, unspecified 01/02/2020 Psychogenic hyperventilation 06/12/2023 Raised antibody titer 09/25/2017 Right lower quadrant pain 11/15/2023 Right otitis externa 11/15/2023 Salivary gland swelling 11/15/2023 Single live ([facility]) 01/15/2020 Snoring 11/15/2023 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) 12/30/2019 Suspected severe acute respiratory syndrome coronavirus 2 (SARS-CoV-2) infection 06/12/2023 SVT (supraventricular tachycardia) ([facility]) 08/26/2019 Syncope and collapse 06/03/2018 [...] drainage of cyst WISDOM TOOTH EXTRACTION 2007 [place] teeth REVIEW OF SYSTEMS Review of Systems: [...] nursing note reviewed. Exam conducted with a e marketing specialist present. Vitals: Estimated body mass index is 33.57 kg/m as calculated from the following: Height as of 11/19/23: 5' 6 . Weight as of this encounter: 208 lb. BP: 108/76 Patient's last menstrual period was 07/28/2024. ASSESSMENT & PLAN ICD-10-CM 1. Second trimester ([facility]) Z34.92 Alpha fetoprotein, maternal Alpha fetoprotein, maternal 2. 16 weeks gestation of ([facility]) Z3A.16 POCT urinalysis dipstick manually resulted 3. Screening, , for anatomic survey ([facility]) Z36.89 CANCELED: US OB 14+ weeks anatomy [...] Wilton Herrmann DO documented in this encounter [facility] 11-19-2024 Group counseling note Patient: Sanna [...] Face to face time was 100 minutes. [employer] Work Phone: 11-19-2024 Miscellaneous Notes Patient: Sanna [...] was 100 minutes. documented in this encounter [facility] 11-05-2024 Telephone encounter Note Pt updated. She reports she is unable to take aspirin. It makes my electrolytes go out of whack. I didn't take with my previous pregnancies and I am not comfortable taking this time either. She will continue with Lovenox, as recommended. 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 She denies further questions, needs or concerns for our care team at this time. Appt verified for RTC Rachael Johnson RN [facility] 11-05-2024 Miscellaneous Notes Pt updated. She reports she is unable to take aspirin. It makes my electrolytes go out of whack. I didn't take with my previous pregnancies and I am not comfortable taking this time either. She will continue with Lovenox, as recommended. 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 She denies further questions, needs or concerns for our care team at this time. Appt verified for RTC Rachael Johnson RN Spoke with Dr. Moscoso and she is to continue Lovenox 40 daily and add baby asa (81 mg) daily. Please also make sure she is following OB High risk. Labs acceptable at this time. Will monitor. Thanks, Katherine Negrete APRN.BILINGUAL INTERPRETER Katherine saw this patient last and will be able to advise better of the plan of care. Abbie Jimenez PA-C Labs resulted. Please advise. Valeri Yeung, RN Images from the original note were not included. documented in this encounter [facility] 11-05-2024 Telephone encounter Note Spoke with Dr. Moscoso and she is to continue Lovenox 40 daily and add baby asa (81 mg) daily. Please also make sure she is following OB High risk. Labs acceptable at this time. Will monitor. Thanks, Katherine Negrete APRN.BILINGUAL INTERPRETER [facility] Work Phone: 11-04-2024 Telephone encounter Note Katherine saw this patient last and will be able to advise better of the plan of care. Abbie Jimenez PA-C [facility] Work Phone: 10-30-2024 History of [...] Diagnosis Date Noted 32 weeks gestation of ([facility]) 11/28/2019 Abdominal pain 06/12/2023 Acute bronchitis due to infection 06/12/2023 Acute on chronic vesicular eczema of hands and feet 11/15/2023 Anemia complicating childbirth ([facility]) 01/16/2020 Anticoagulant long-term use 02/22/2020 Antiphospholipid antibody positive 09/10/2017 Antiphospholipid antibody syndrome ([facility]) 07/07/2019 Anxiety 06/12/2023 Blood pressure elevated without history of HTN 11/15/2023 BMI 37.0-37.9, adult 11/15/2023 Cerebral infarction, unspecified ([facility]) 05/16/2019 Cerebrovascular accident (CVA) due to stenosis of middle cerebral artery ([facility]) 02/22/2020 Cervicalgia 02/05/2019 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 ([facility]) 01/08/2020 Coagulation defect, unspecified ([facility]) 02/05/2019 Cold intolerance 11/15/2023 Deficiency of other specified B group vitamins 05/16/2019 Deviated septum 11/15/2023 Dizziness and giddiness 02/05/2019 Dry mouth 11/15/2023 Dysfunction of eustachian tube 06/12/2023 Dyspnea 06/12/2023 Elevated blood pressure reading 11/15/2023 Encounter for supervision of normal , unspecified, first trimester ([facility]) 05/29/2019 Environmental allergies 11/15/2023 Fatigue 12/29/2016 First degree perineal laceration during delivery ([facility]) 01/16/2020 Frequency of micturition 02/19/2019 Genitourinary symptoms 08/19/2021 Gestational diabetes mellitus (GDM) affecting ([facility]) 01/26/2022 H/O: hypothyroidism 11/15/2023 Hematochezia 06/12/2023 [...] anemia 01/16/2020 Irregular uterine bleeding 11/15/2023 problem ([facility]) 06/12/2023 Less than 8 weeks gestation of ([facility]) 06/05/2019 flame gouger (current) use of 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/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 02/05/2019 Migraine without aura and without status migrainosus, not intractable 09/12/2017 Morbid obesity ([facility]) 11/15/2023 Muscle fasciculation 08/19/2021 Nasal polyps 11/15/2023 Non-smoker 11/15/2023 NEETA (obstructive sleep apnea) 11/15/2023 Other acute postprocedural pain 02/03/2019 Other general symptoms and signs 10/28/2019 Other immediate hemorrhage ([facility]) 01/16/2020 Other specified noninflammatory disorders of vagina 02/21/2019 Pain in joint 12/29/2016 Palpitations 08/26/2019 Paresthesia of bilateral legs 11/15/2023 Pelvic and perineal pain 02/01/2019 Personal history of urinary (tract) infections 01/16/2020 Pre-diabetes 11/15/2023 Primary hypercoagulable state ([facility]) 08/01/2022 Pruritus, unspecified 01/02/2020 Psychogenic hyperventilation 06/12/2023 Raised antibody titer 09/25/2017 Right lower quadrant pain 11/15/2023 Right otitis externa 11/15/2023 Salivary gland swelling 11/15/2023 Single live ([facility]) 01/15/2020 Snoring 11/15/2023 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) 12/30/2019 Suspected severe acute respiratory syndrome coronavirus 2 (SARS-CoV-2) infection 06/12/2023 SVT (supraventricular tachycardia) ([facility]) 08/26/2019 Syncope and collapse 06/03/2018 [...] drainage of cyst WISDOM TOOTH EXTRACTION 2007 [place] teeth REVIEW OF SYSTEMS Review of Systems: [...] nursing note reviewed. Exam conducted with a e marketing specialist present. Vitals: Estimated body mass index is 33.81 kg/m as calculated from the following: Height as of 11/19/23: 5' 6 . Weight as of this encounter: 209 lb 8 oz. BP: 110/76 Patient's last menstrual period was 07/28/2024. ASSESSMENT & PLAN ICD-10-CM 1. Second trimester ([facility]) Z34.92 POCT urinalysis dipstick manually resulted 2. 13 weeks gestation of ([facility]) Z3A.13 3. Thyroid disease E07.9 4. Multigravida of advanced maternal age in second trimester ([facility]) O09.522 New OB: Patient presents today for [...] or undercooked meat, and stay away from [facility]. Patient has been consulted regarding any further do's and don'ts of . Patient voiced understanding and all questions and concerns were answered. Patient is currently on 40 Lovenox and will be referred to [facility] for recommendations/co-management throughout . Discussed concerns [...] Wilton Herrmann DO documented in this encounter [facility] 10-30-2024 Telephone encounter Note Labs resulted. Please advise. Valeri Yeung RN [facility] 10-28-2024 Telephone encounter Note Images from the original note were not included. [facility] 10-28-2024 Note HNO ID: [id number] Author: KATHERINE NEGRETE APRN.BILINGUAL INTERPRETER Service: ? Author Type: Nurse Practitioner Type: Progress Notes Filed: 10/29/2024 21:44 Note Text: NAME: Sanna Rendon CLINIC NO.: [id number] DATE OF SERVICE: October 28, 2024 (Arsh) [...] later in 2018. These were found in [place], [place]. I don't have access to these [...] a target-like rash shortly before presenting to [facility] in 2016 with headaches and was [...] changes both have (more content not included)... [facility] 10-28-2024 History of Present illness Narrative Images from the original note were not included. NAME: Sanna Rendon CLINIC NO.: [id number] DATE OF SERVICE: October 28, 2024 (Arsh) Some elements in this clinic note that are critical to medical decision making have been carefully reviewed and included from a prior clinic note dated: October 10, 2024 (Levon) Additional Clinicians involved in Sanna Rendon's care: Jorge Mcwilliams, Humaira Gaviria, Dr. Boothe CC: Hypercoag state CASE SUMMARY / ASSESSMENT: 39 year old woman presents with a prior history of CVA in 2016 and an antiphospholipid antibody that was identified much later in 2018. These were found in [place], [place]. I don't have access to these [...] a target-like rash shortly before presenting to [facility] in 2016 with headaches and was [...] soon. When she had a stroke in [place], she had symptoms up to a month [...] and stayed on Lovenox Hgb 13.1 @ [facility] Recommended ER if persisting bleeding [...] and at age 69. Both lived in [place], [place] - but she was adopted. She was not able to see ID in October and will be seeing Dr. Baugh next week. Also will have her see Dr. Hamlin for her clotting disorder and make any other recommendations to optimize her treatment. Updated Visit, October 08, 2020: Telephone only Received call from pt stating she was seen in [facility] ER for numbness in her chest, throat, and extremities, and sob which has been worsening over the last week. We arranged a telephone visit for her to review questions with me. Sanna Rendon is a 34 year old female seen for Hypercoagulable state and recent concerns and symptoms that required her to be seen at [facility] ER. She went to the ER with Gradual worsening of breathing after progressive tingling of fingers and legs. She currently remains very fatigued even though she is sleeping well. Now recalls that before her stroke she remembers having a bull's eye rash and was seen with severe headaches in [place], [place] - was found to have a [...] a root canal and was sent to [facility] for MRI which was negative [...] history goes back to January 2016 in [facility] where she had persisting headaches and slurred speech followed by lower extremity weakness. This took a few months to resolve and she is back to her normal state of being but some point in time during her her next she was seen by Dr. Humera Hyde in [place] as well and was found to have [...] which included preparing to see the patient, ggqa-po-piiy patient care, completing clinical documentation, obtaining and/or reviewing separately obtained history, performing a medically appropriate examination, counseling and educating the patient/family/caregiver, ordering medications, tests, or procedures, independently interpreting results (not separately reported), and communicating results to the patient/family/caregiver. Katherine Negrete APRN.TOR [facility] Provided at: [place], [place] CC: MD Wilton Day, [address] [place] [address] Humaira Gaviria MD [address] [place] [id number] MD Cosmo Kingston MD Michael Blank, MD documented in this encounter [facility] 10-24-2024 Telephone encounter Note New orders may need placed for appt on 10/28. Kaur Dunham MA [facility] 10-24-2024 Miscellaneous Notes New orders may need placed for appt on 10/28. Kaur Dunham MA documented in this encounter [facility] 10-13-2024 Miscellaneous Notes Attempted to contact patient x3, call cannot be completed, cannot receive calls at this time. Unable to leave a voicemail. documented in this encounter [facility] 10-13-2024 Telephone encounter Note Attempted to contact patient x3, call cannot be completed, cannot receive calls at this time. Unable to leave a voicemail. [facility] 10-02-2024 History of Present illness Narrative [...] due to stenosis of middle cerebral artery ([facility]) 02/22/2020 Cervicalgia 02/05/2019 Chromosomal abnormality [...] Less than 8 weeks gestation of 06/05/2019 FPC (current) use of 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/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 02/05/2019 Migraine without aura and without status migrainosus, not intractable ([facility]) 09/12/2017 Morbid obesity ([facility]) 11/15/2023 Muscle fasciculation 08/19/2021 Nasal polyps 11/15/2023 [...] infections 01/16/2020 Pre-diabetes 11/15/2023 Primary hypercoagulable state ([facility]) 08/01/2022 Pruritus, unspecified 01/02/2020 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[facility]) 06/12/2023 Raised antibody titer 09/25/2017 Right lower quadrant pain 11/15/2023 Right otitis externa 11/15/2023 Salivary gland swelling 11/15/2023 Single live 01/15/2020 Snoring 11/15/2023 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) 12/30/2019 Suspected severe acute respiratory syndrome coronavirus 2 (SARS-CoV-2) infection 06/12/2023 SVT (supraventricular tachycardia) ([facility]) 08/26/2019 Syncope and collapse 06/03/2018 Other bacterial infections of unspecified site 06/27/2019 Thrombocytopenia, unspecified ([facility]) 11/20/2019 Hypoglycemia 06/12/2023 Unspecified condition [...] drainage of cyst WISDOM TOOTH EXTRACTION 2007 [place] teeth Allergies Allergen Reactions Ciprofloxacin GI intolerance [...] TSH Nurse Note: Patient desires to have [facility] [employer] to one. Pt was advised to [...] or undercooked meat, and stay away from [facility]. Patient has also been advised to [...] Lala Hess MA documented in this encounter [facility] 09-07-2024 Note Patient Education Infectious Disease [...] to help relieve symptoms, such as: ??? Xipy-qvt-dglxkbc cold medicines. ??? Cough suppressants. Coughing is [...] other clear broths. General instructions ??? Take wdhs-voj-aswmbxs and prescription medicines only as told by [...] and water are not available, use hand lead custodian. ??? Avoid touching your mouth, face, eyes, [...] stiff neck. ? (more content not included)... [facility] 09-03-2024 Miscellaneous Notes Pt notified and appt [...] Rachael Johnson RN documented in this encounter [facility] 09-03-2024 Telephone encounter Note Pt notified and appt for September. She denies any further questions, needs or concerns at this time. Rachael Johnson RN [facility] 09-03-2024 Telephone encounter Note No change in meds. [facility] 09-02-2024 Telephone encounter Note Pt left a voicemail to inform she is approximately 5 weeks . She is asking any recommendations on med changes. Pt missed today's appt. Called and left VM to please call and schedule missed follow up MUNIRA. Fely: Please advise Rachael Johnson RN [facility] 08-26-2024 Telephone encounter Note Patient has an appt on 08/27/24. Would you like labs, if so place orders. Serina Dawson MA [facility] 08-26-2024 Miscellaneous Notes Patient has an appt on 08/27/24. Would you like labs, if so place orders. Serina Dawson MA documented in this encounter [facility] 08-05-2024 Evaluation + Plan note Future Scheduled [id number] 08/05/2467FciA7c 11/04/24CT Soft Tissue Neck w/ Contrast 11/12/23 [facility] 07-24-2024 History of Present [...] affecting obstetrical care 01/08/2020 Coagulation defect, unspecified ([facility]) 02/05/2019 Cold intolerance 11/15/2023 Deficiency [...] Less than 8 weeks gestation of 06/05/2019 flame gouger (current) use of 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/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 02/05/2019 Migraine without aura and without status migrainosus, not intractable ([facility]) 09/12/2017 Morbid obesity ([facility]) 11/15/2023 Muscle fasciculation 08/19/2021 Nasal polyps 11/15/2023 [...] infections 01/16/2020 Pre-diabetes 11/15/2023 Primary hypercoagulable state ([facility]) 08/01/2022 Pruritus, unspecified 01/02/2020 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[facility]) 06/12/2023 Raised antibody titer 09/25/2017 Right lower quadrant pain 11/15/2023 Right otitis externa 11/15/2023 Salivary gland swelling 11/15/2023 Single live 01/15/2020 Snoring 11/15/2023 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) 12/30/2019 Suspected severe acute respiratory syndrome coronavirus 2 (SARS-CoV-2) infection 06/12/2023 SVT (supraventricular tachycardia) ([facility]) 08/26/2019 Syncope and collapse 06/03/2018 Other bacterial infections of unspecified site 06/27/2019 Thrombocytopenia, unspecified ([facility]) 11/20/2019 Hypoglycemia 06/12/2023 Unspecified condition associated with female genital organs and menstrual cycle 05/09/2019 Unspecified ovarian cyst, right side 02/06/2019 Urinary tract infection 10/16/2019 Referred otalgia of right ear 11/19/2023 LPRD (laryngopharyngeal reflux disease) 11/19/2023 Resolved Ambulatory Problems Diagnosis Date Noted No Resolved Ambulatory Problems Past Medical History: Diagnosis Date AMA (advanced maternal age) multigravida 35+ Anemia Antiphospholipid syndrome ([facility]) Gestational diabetes Heartburn Hypothyroid ([facility]) Stroke ([facility]) HISTORY PAST MEDICAL HISTORY SOCIAL HISTORY Past Medical History: Diagnosis Date AMA (advanced maternal age) multigravida 35+ Anemia Antiphospholipid syndrome (CMS/HCC) Gestational diabetes Heartburn Hypothyroid ([facility]) Stroke ([facility]) Social History Tobacco Use Smoking status: Never [...] drainage of cyst WISDOM TOOTH EXTRACTION 2007 [place] teeth REVIEW OF SYSTEMS Review of Systems: [...] nursing note reviewed. Exam conducted with a e marketing specialist present. Vitals: Estimated body mass index is [...] Wilton Herrmann DO documented in this encounter [facility] 07-08-2024 Note Patient Education Emergency Medicine Bradycardia, Adult Bradycardia is a umxthr-okim-iznqvx heartbeat. A normal resting heart rate for [...] provider. ??? Follow a heart-healthy diet. A youth nutritional monitor (dietitian) can help educate you about healthy [...] liquor (44 mL). General instructions ??? Take izms-ltp-kvfgekr and prescription medicines only as told by [...] heartbeat (palpitations). ??? (more content not included)... [facility] 06-30-2024 Hospital Discharge instructions Patient Education 06/30/2024 [...] Follow these instructions at home: Medicines Give ezbv-ond-ebdreuh and prescription medicines only as told by [...] find more information PANDAS Network: pandasnetwork.org National [place] of Mental Health: [facility].nih.gov Contact a health care provider if: Your [...] the National Suicide Prevention Lifeline at or 926. This is open 24 hours a day. Text the Crisis Text Line at 802226. Summary Pediatric autoimmune neuropsychiatric disorders associated with [...] provider. Document Revised: 01/09/2022 Document Reviewed: 01/09/2022 [employer] Patient Education 2023 [employer] 06/30/2024 09:20:50 Common Variable Immunodeficiency Common Variable [...] Follow these instructions at home: Medicines Take cmwn-lgu-bqzvuva and prescription medicines only as told by [...] disease. Where to find more information National [place] of Allergy and Infectious Disease: www.niaid.nih.gov Contact [...] risk for frequent or unusual infections. Take ctlq-dwa-idmbkqq and prescription medicines only as told by [...] provider. Document Revised: 11/18/2021 Document Reviewed: 11/18/2021 [employer] Patient Education 2023 [employer]. 06/30/2024 09:18:06 DASH Eating Plan DASH Eating [...] Dairy Whole or 2% milk, cream, and smzh-usd-iujn. Whole or full-fat cream cheese. Whole-fat or [...] more information National Heart, Lung, and Blood [place] (NHLBI): nhlbi.nih.gov [place] Heart Association (AHA): heart.org Academy of Nutrition and Dietetics: eatright.org National Kidney Foundation (NKF): kidney.org This information is not intended to replace advice given to you by your health care provider. Make sure you discuss any questions you have with your health care provider. Document Revised: 05/03/2023 Document Reviewed: 05/03/2023 [employer] Patient Education 2023 [employer]. Follow Up Care 06/25/2024 13:53:59 With:PRAVEEN RESENDEZ FAAFP, CHRIS Perez, PED Address: [place] [address], [place] [address]- When:Within 2 Month(s) [facility] 06-30-2024 Note Patient Education [...] these instructions at home: Medicines ??? Take hplr-ibv-rjiukvi and prescription medicines only as told by [...] Where to find more information ??? National [place] of Allergy and Infectious Disease: www.niaid.nih.gov Contact a health care provider if: ??? You have a fever. ??? You have any symptoms of infection such as chills, worsening cough, or severe earache. ??? You make high-pitched whistling sounds when you breathe, most often when you breathe out (wheeze). (more content not included)... 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 Coagulation defect, unspecified ([facility]) 02/05/2019 Cold intolerance 11/15/2023 Deficiency [...] Less than 8 weeks gestation of 06/05/2019 flame gouger (current) use of 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/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 02/05/2019 Migraine without aura and without status migrainosus, not intractable ([facility]) 09/12/2017 Morbid obesity ([facility]) 11/15/2023 Muscle fasciculation 08/19/2021 Nasal polyps 11/15/2023 [...] infections 01/16/2020 Pre-diabetes 11/15/2023 Primary hypercoagulable state ([facility]) 08/01/2022 Pruritus, unspecified 01/02/2020 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[facility]) 06/12/2023 Raised antibody titer 09/25/2017 Right lower quadrant pain 11/15/2023 Right otitis externa 11/15/2023 Salivary gland swelling 11/15/2023 Single live 01/15/2020 Snoring 11/15/2023 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) 12/30/2019 Suspected severe acute respiratory syndrome coronavirus 2 (SARS-CoV-2) infection 06/12/2023 SVT (supraventricular tachycardia) ([facility]) 08/26/2019 Syncope and collapse 06/03/2018 Other bacterial infections of unspecified site 06/27/2019 Thrombocytopenia, unspecified ([facility]) 11/20/2019 Hypoglycemia 06/12/2023 Unspecified condition associated with [...] drainage of cyst WISDOM TOOTH EXTRACTION 2007 [place] teeth REVIEW OF SYSTEMS Review of Systems: [...] nursing note reviewed. Exam conducted with a e marketing specialist present. Vitals: Estimated body mass index is [...] Wilton Herrmann DO documented in this encounter [facility] 06-09-2024 Hospital Discharge instructions Patient Education [...] Do not chew gum. General instructions Take mbzp-pnl-togydxx and prescription medicines only as told by [...] important. Where to find more information National [place] of Dental and Craniofacial Research: www.nidcr.nih.gov Contact [...] provider. Document Revised: 11/27/2021 Document Reviewed: 11/27/2021 [employer] Patient Education 2023 [employer]. Follow Up Care 06/06/2024 11:26:13 With:PRAVEEN RESENDEZ FAAFP, CHRIS Perez, PED Address: [address] [place] [address] [place] [address]- When:Within 6 Month(s) [facility] 06-09-2024 Note Patient Education [...] not chew gum. General instructions ??? Take uzsk-rys-tukohtg and prescription medicines only as told by [...] Where to find more information ??? National [place] of Dental and Craniofacial Research: www.nidcr.nih.gov Contact [...] provider. Document Revised: 11/27/2021 Document Reviewed: 11/27/2021 [employer] Patient Education ? 2023 [employer]. [facility] 06-02-2024 History of Present illness Narrative Reason [...] Antiphospholipid antibody positive 09/10/2017 Antiphospholipid antibody syndrome ([facility]) 07/07/2019 Anxiety 06/12/2023 Blood pressure elevated without history of HTN 11/15/2023 BMI 37.0-37.9, adult 11/15/2023 Cerebral infarction, unspecified ([facility]) 05/16/2019 Cerebrovascular accident (CVA) due to stenosis of middle cerebral artery ([facility]) 02/22/2020 Cervicalgia 02/05/2019 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 Coagulation defect, unspecified ([facility]) 02/05/2019 Cold intolerance 11/15/2023 Deficiency [...] Less than 8 weeks gestation of 06/05/2019 FPC (current) use of 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/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 02/05/2019 Migraine without aura and without status migrainosus, not intractable ([facility]) 09/12/2017 Morbid obesity ([facility]) 11/15/2023 Muscle fasciculation 08/19/2021 Nasal polyps 11/15/2023 [...] infections 01/16/2020 Pre-diabetes 11/15/2023 Primary hypercoagulable state ([facility]) 08/01/2022 Pruritus, unspecified 01/02/2020 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[facility]) 06/12/2023 Raised antibody titer 09/25/2017 Right lower quadrant pain 11/15/2023 Right otitis externa 11/15/2023 Salivary gland swelling 11/15/2023 Single live 01/15/2020 Snoring 11/15/2023 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) 12/30/2019 Suspected severe acute respiratory syndrome coronavirus 2 (SARS-CoV-2) infection 06/12/2023 SVT (supraventricular tachycardia) ([facility]) 08/26/2019 Syncope and collapse 06/03/2018 Other bacterial infections of unspecified site 06/27/2019 Thrombocytopenia, unspecified ([facility]) 11/20/2019 Hypoglycemia 06/12/2023 Unspecified condition [...] drainage of cyst WISDOM TOOTH EXTRACTION 2007 [place] teeth REVIEW OF SYSTEMS Review of Systems: [...] nursing note reviewed. Exam conducted with a e marketing specialist present. Vitals: Estimated body mass index is [...] Patient had recent HCG level drawn at [facility] 05/31/2024 lab value was 6. Documented by Renate Vegas LPN on behalf of: Wilton Herrmann DO documented in this encounter [facility] 05-28-2024 Telephone encounter Note Triage to call with iron results [facility] 05-28-2024 Miscellaneous Notes Triage to call with iron results documented in this encounter [facility] 05-28-2024 Instructions Nathaly Florence - 05/28/2024 1:44 PM EST Triage to call iron results Continue Lovenox - patient prefers 40 mg (rather than rec 80mg) Encouraged her to reconsider Take B12 supplement in the form of a sublingual tablet RTC in 3 months Labs same day or 2-7 days prior documented in this encounter [facility] 05-28-2024 History of Present illness Narrative Images from the original note were not included. NAME: Sanna Rendon CLINIC NO.: [id number] DATE OF SERVICE: May 28, 2024 (jose) Some elements in this clinic [...] later in 2018. These were found in [place], [place]. I don't have access to these [...] a target-like rash shortly before presenting to [facility] [place] [facility] in 2016 with headaches and was [...] prior HPI: Updated Visit, May 28, 2024: Sanna [...] soon. When she had a stroke in [place], she had symptoms up to a month [...] and stayed on Lovenox Hgb 13.1 @ [facility] Recommended ER if persisting bleeding [...] and at age 69. Both lived in [facility] but she was adopted. She was not able to see ID in October and will be seeing Dr. Baugh next week. Also will have her see Dr. Hamlin for her clotting disorder and make any other recommendations to optimize her treatment. Updated Visit, October 08, 2020: Telephone only Received call from pt stating she was seen in [facility] ER for numbness in her chest, throat, and extremities, and sob which has been worsening over the last week. We arranged a telephone visit for her to review questions with me. Sanna Rendon is a 34 year old female seen for Hypercoagulable state and recent concerns and symptoms that required her to be seen at [facility] ER. She went to the ER with Gradual worsening of breathing after progressive tingling of fingers and legs. She currently remains very fatigued even though she is sleeping well. Now recalls that before her stroke she remembers having a bull's eye rash and was seen with severe headaches in [facility] was found to have a stroke [...] a root canal and was sent to [facility] for MRI which was negative [...] history goes back to January 2016 in [facility] where she had persisting headaches and slurred speech followed by lower extremity weakness. This took a few months to resolve and she is back to her normal state of being but some point in time during her her next she was seen by Dr. Humera Hyde in [place] as well and was found to have [...] which included preparing to see the patient, wras-qu-sdvp patient care, completing clinical documentation, performing a medically appropriate examination, counseling and educating the patient/family/caregiver, ordering medications, tests, or procedures, independently interpreting results (not separately reported), communicating results to the patient/family/caregiver, and care coordination (not separately reported). Kristofer Calix MD, CPE Hematology and Oncology Services Provided at: [place], [place] Scribe Attestation: This note was scribed [...] and under my direction. CC: MD Wilton Day[address] [place] [address] Humaira Gaviria MD [address] [place] [id number] MD Cosom Kingston MD Michael Blank, MD documented in this encounter [facility] 05-28-2024 Note HNO ID: [id number] Author: KRISTOFER CALIX MD Service: ? Author Type: Physician Type: Progress Notes Filed: 05/29/2024 09:13 Note Text: NAME: Sanna Rendon CLINIC NO.: [id number] DATE OF SERVICE: May 28, 2024 (Levon) [...] later in 2018. These were found in [place], [place]. I don't have access to these [...] a target-like rash shortly before presenting to [facility] [place] [facility] in 2015 with headaches and was [...] soon. When she had a stroke in [place], she had symptoms up to a month [...] feeding. Updated Visit, (more content not included)... [facility] 05-14-2024 Telephone encounter Note Pt called to inform she had a miscarriage, Sunday (05/10/24) Asking if any additional blood work was needed from out standpoint. Pt aware we will be checking her CBC for any signs of anemia and her iron studies for deficiency. She is aware if her crown perforator operator or PCP request any additional testing, we can certainly draw with her appt 05/21 (will just need to fax orders). She denies any further questions needs or concerns at this time. MARSHA Rushk: FYMoe [facility] 05-14-2024 Miscellaneous Notes Pt called to inform she had a miscarriage, Sunday (05/10/24) Asking if any additional blood work was needed from out standpoint. Pt aware we will be checking her CBC for any signs of anemia and her iron studies for deficiency. She is aware if her crown perforator operator or PCP request any additional testing, we can certainly draw with her appt 05/21 (will just need to fax orders). She denies any further questions needs or concerns at this time. MARSHA Rushk: YANET documented in this encounter [facility] 05-14-2024 Telephone encounter Note 0908 Patient called to inquire if when she will need to have HCG levels drawn and if she needed a follow up appointment in office. Patient request call back. 09 Called patient and informed patient to have [...] at follow up appointment. PVU--Rosi Presley LPN [facility] 05-14-2024 Miscellaneous Notes 0908 Patient called [...] PVU--Rosi Presley LPN documented in this encounter 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 Coagulation defect, unspecified ([facility]) 02/05/2019 Cold intolerance 11/15/2023 Deficiency [...] Less than 8 weeks gestation of 06/05/2019 FPC (current) use of 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/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 02/05/2019 Migraine without aura and without status migrainosus, not intractable ([facility]) 09/12/2017 Morbid obesity ([facility]) 11/15/2023 Muscle fasciculation 08/19/2021 Nasal polyps 11/15/2023 [...] infections 01/16/2020 Pre-diabetes 11/15/2023 Primary hypercoagulable state ([facility]) 08/01/2022 Pruritus, unspecified 01/02/2020 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[facility]) 06/12/2023 Raised antibody titer 09/25/2017 Right lower quadrant pain 11/15/2023 Right otitis externa 11/15/2023 Salivary gland swelling 11/15/2023 Single live 01/15/2020 Snoring 11/15/2023 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) 12/30/2019 Suspected severe acute respiratory syndrome coronavirus 2 (SARS-CoV-2) infection 06/12/2023 SVT (supraventricular tachycardia) ([facility]) 08/26/2019 Syncope and collapse 06/03/2018 Other bacterial infections of unspecified site 06/27/2019 Thrombocytopenia, unspecified ([facility]) 11/20/2019 Hypoglycemia 06/12/2023 Unspecified condition [...] drainage of cyst WISDOM TOOTH EXTRACTION 2007 [place] teeth REVIEW OF SYSTEMS Review of Systems: [...] nursing note reviewed. Exam conducted with a e marketing specialist present. Vitals: Estimated body mass index is [...] dipstick manually resulted documented in this encounter [facility] 04-04-2024 History of Present illness Narrative [...] Last pap smear date 02/14/2022 negative STD 10/18/22 - negative Current Medications: has a current [...] Antiphospholipid antibody positive 09/10/2017 Antiphospholipid antibody syndrome ([facility]) 07/07/2019 Anxiety 06/12/2023 Blood pressure elevated without history of HTN 11/15/2023 BMI 37.0-37.9, adult 11/15/2023 Cerebral infarction, unspecified ([facility]) 05/16/2019 Cerebrovascular accident (CVA) due to stenosis of middle cerebral artery ([facility]) 02/22/2020 Cervicalgia 02/05/2019 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 Coagulation defect, unspecified ([facility]) 02/05/2019 Cold intolerance 11/15/2023 Deficiency [...] Less than 8 weeks gestation of 06/05/2019 flame gouger (current) use of 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/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 02/05/2019 Migraine without aura and without status migrainosus, not intractable ([facility]) 09/12/2017 Morbid obesity ([facility]) 11/15/2023 Muscle fasciculation 08/19/2021 Nasal polyps 11/15/2023 [...] infections 01/16/2020 Pre-diabetes 11/15/2023 Primary hypercoagulable state ([facility]) 08/01/2022 Pruritus, unspecified 01/02/2020 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[facility]) 06/12/2023 Raised antibody titer 09/25/2017 Right lower quadrant pain 11/15/2023 Right otitis externa 11/15/2023 Salivary gland swelling 11/15/2023 Single live 01/15/2020 Snoring 11/15/2023 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) 12/30/2019 Suspected severe acute respiratory syndrome coronavirus 2 (SARS-CoV-2) infection 06/12/2023 SVT (supraventricular tachycardia) ([facility]) 08/26/2019 Syncope and collapse 06/03/2018 Other bacterial infections of unspecified site 06/27/2019 Thrombocytopenia, unspecified ([facility]) 11/20/2019 Hypoglycemia 06/12/2023 Unspecified condition [...] drainage of cyst WISDOM TOOTH EXTRACTION 2007 [place] teeth Allergies Allergen Reactions Ciprofloxacin GI intolerance [...] Rapid drug screen, urine; Future Hypothyroidism (acquired) ([facility]) - TSH Low vitamin D level - [...] or undercooked meat, and stay away from [facility]. Patient has also been advised to [...] Ariane Joseph LPN documented in this encounter [facility] 02-28-2024 Telephone encounter Note Pt aware and agreeable to plan of care. Pt denies any further questions, needs or concerns at this time. Appt verified for lab/follow up Rachael Johnson RN [facility] 02-28-2024 Miscellaneous Notes Pt aware [...] until scheduled appt. Pt last labs completed 9/4/24. Pt also would like to know if it is okay to take with iron? Fely: Please advise Rachael Johnson RN documented in this encounter [facility] 02-27-2024 Telephone encounter Note She can take the iron with prenatals. We should Johnathon labs as scheduled. [facility] 02-27-2024 Telephone encounter Note Pt 4 weeks and inquiring if she should have lab work completed now or wait until scheduled appt. Pt last labs completed 01/02/24. Pt also would like to know if it is okay to take with iron? Fely: Please advise Rachael Johnson RN [facility] 02-05-2024 Hospital Discharge instructions Patient [...] condition. Follow these instructions at home: Take fqjf-ekt-lsehdep and prescription medicines only as told by [...] and water are not available, use hand lead custodian. Avoid contact with people who have cold [...] it is easier to cough up. Take ggik-wve-mvnfwqg and prescription medicines only as told by [...] provider. Document Revised: 07/27/2022 Document Reviewed: 08/17/2021 [employer] Patient Education 2023 [employer]. Follow Up Care 02/04/2024 08:47:42 With:PRAVEEN RESENDEZ FAAFP, Penelope Tony, CHRIS, PED Address: [address], [place] [address]- When:Within 3 Month(s) [facility] 02-05-2024 Note Patient Education [...] Follow these instructions at home: ? Take zdmv-kkm-jycptsu and prescription medicines only as told by [...] and water are not available, use hand lead custodian. ? Avoid contact with people who have [...] is easier to cough up. ? Take gefc-wjc-olibbpq and (more content not included)... [facility] 02-02-2024 Hospital Discharge instructions Follow Up Care 02/02/2024 11:19:56 With:Anni Bernstein MD, [facility] Address: [address] [place] [phone] When: only if needed [facility] 01-07-2024 Miscellaneous Notes No need for IV iron per CC'd chart from Dr. Calix. Attempt to call pt to notify. Left detailed message on, along with call back number on voicemail. Valeri Yeung RN Dr Luna is requesting Triage to call Sanna with her FE results. Thank you documented in this encounter [facility] 01-07-2024 Telephone encounter Note No need for IV iron per CC'd chart from Dr. Calix. Attempt to call pt to notify. Left detailed message on, along with call back number on voicemail. Valeri Yeung RN [facility] 01-02-[address] Luna is requesting Triage to call Sanna with her FE results. Thank you [facility] 01-02-2024 Instructions Nathaly Florence - 01/02/2024 2:08 PM EDT Triage to call iron results Continue Lovenox - patient prefers 40 mg (rather than rec 80mg) Encouraged her to reconsider Take B12 supplement in the form of a sublingual tablet RTC in 3 months Labs same day Vitamin D, TSH, Calcium with CMP documented in this encounter [facility] 01-02-2024 Nurse Note Patient states [...] MRI but was negative. Serina Dawson MA [facility] 01-02-2024 Nurse Note Patient states [...] Serina Dawson MA documented in this encounter [facility] 01-02-2024 History of Present illness Narrative Images from the original note were not included. NAME: Justice Sanna CLINIC NO.: [id number] DATE OF SERVICE: January 02, 2024 (Levon) [...] later in 2018. These were found in [place], [place]. I don't have access to these [...] a target-like rash shortly before presenting to [facility] [place] [facility] in 2015 with headaches and was [...] soon. When she had a stroke in [place], she had symptoms up to a month [...] and stayed on Lovenox Hgb 13.1 @ [facility] Recommended ER if persisting bleeding [...] and at age 69. Both lived in [facility] but she was adopted. She was not able to see ID in October and will be seeing Dr. Baugh next week. Also will have her see Dr. Hamlin for her clotting disorder and make any other recommendations to optimize her treatment. Updated Visit, October 08, 2020: Telephone only Received call from pt stating she was seen in [facility] ER for numbness in her chest, throat, and extremities, and sob which has been worsening over the last week. We arranged a telephone visit for her to review questions with me. Sanna Rendon is a 34 year old female seen for Hypercoagulable state and recent concerns and symptoms that required her to be seen at [facility] ER. She went to the ER with Gradual worsening of breathing after progressive tingling of fingers and legs. She currently remains very fatigued even though she is sleeping well. Now recalls that before her stroke she remembers having a bull's eye rash and was seen with severe headaches in [facility] was found to have a stroke [...] a root canal and was sent to [facility] for MRI which was negative [...] history goes back to January 2016 in [facility] where she had persisting headaches and slurred speech followed by lower extremity weakness. This took a few months to resolve and she is back to her normal state of being but some point in time during her her next she was seen by Dr. Humera Hyde in [place] as well and was found to have [...] (chronic) No date: Kidney stones Comment: early 20's No date: Missed menses No date: Nausea [...] which included preparing to see the patient, oonm-yl-yuvo patient care, completing clinical documentation, performing a medically appropriate examination, counseling and educating the patient/family/caregiver, ordering medications, tests, or procedures, independently interpreting results (not separately reported), communicating results to the patient/family/caregiver, and care coordination (not separately reported). Kristofer Calix MD, CPE Hematology and Oncology Services Provided at: [place], [place] Scribe Attestation: This note was scribed [...] under my direction. CC: MD Wilton Day, [address] [place] [address] Humaira Gaviria MD [address] [facility] [place] [address] MD Cosmo Kingston MD Michael Blank, MD documented in this encounter [facility] 12-17-2023 Telephone encounter Note Pt updated and will follow up with PCP. Denies further questions, needs or concerns at this time for our provider. Rachael Johnson RN [facility] 12-17-2023 Miscellaneous Notes Pt updated [...] IV Iron 11/29/23? documented in this encounter [facility] 12-17-2023 Telephone encounter Note No - sounds like she has some infectious process going on - would rec PCP. [facility] 12-17-2023 Telephone encounter Note Pt [...] possible delayed reaction to IV Iron 11/29/23? [facility] 11-29-2023 History of Present illness Narrative Y Y documented in this encounter [facility] 11-29-2023 Telephone encounter Note MARSHA Connell, treatment aware of changes. [facility] 11-29-2023 Miscellaneous Notes MARSHA Connell, [...] different iron formulation. documented in this encounter [facility] 11-29-2023 Telephone encounter Note Spoke with pt. She will obtain Pepcid OTC from our retail pharmacy on arrival to take (1) 20 mg tablet. She is aware and agreeable to IV steroid for infusion as well. Rachael Johnson, MARSHA [facility] 11-29-2023 Telephone encounter Note A one time dose of dexamethasone is safe when . I added 8mg to the plan for your review. Please adjust dose if necessary. Thanks, Raissa lAy RPh [facility] Work Phone: 11-29-2023 Telephone encounter Note Famotidine is safe when . Do we want to administer the venofer slower? What rate? Thanks, Raissa Aly [facility] 11-29-2023 Telephone encounter Note Called and discussed with pt. She is and cannot take Benadryl. She is reluctant to take Pepcid. Attempted to call retail, infusion pharmacy and [facility] [facility], no answer, to ask safety of pepcid in . Pharm/Fely: please advise Rachael Johnson RN [facility] 11-29-2023 Telephone encounter Note Hi [...] have to choose a different iron formulation. [facility] 11-15-2023 History of Present illness Narrative Pt reports having nausea and lightheadedness this morning. She has seen her pcp regarding these symptoms and is being worked up to figure out the cause. documented in this encounter [facility] 11-15-2023 Telephone encounter Note 1st report of treatment-Non oncology regimen (Venofer) Patient holds Medicaid coverage and there is no available FA at this time. [facility] 11-15-2023 Miscellaneous Notes 1st report of treatment-Non oncology regimen (Venofer) Patient holds Medicaid coverage and there is no available FA at this time. documented in this encounter [facility] 11-09-2023 Hospital Discharge instructions Patient [...] your hypoglycemia. Where to find more information [place] [employer]: www.diabetes.org National [place] of Diabetes and Digestive and Kidney Diseases: [...] provider. Document Revised: 03/17/2021 Document Reviewed: 03/17/2021 [employer] Patient Education 2022 [employer]. 11/09/2023 15:56:06 Prediabetes Prediabetes Prediabetes is when [...] hard liquor (44 mL). General instructions Take webt-axq-ezwrcxa and prescription medicines only as told by [...] is important. Where to find more information [place] [employer]: www.diabetes.org Academy of Nutrition and Dietetics: www.eatright.org [place] [employer]: www.heart.org Contact a health care [...] provider. Document Revised: 07/15/2020 Document Reviewed: 07/15/2020 [employer] Patient Education 2022 [employer]. 11/09/2023 15:56:02 Palpitations Palpitations Palpitations are feelings [...] your health care provider. General instructions Take hxdd-hec-odhgniu and prescription medicines only as told by [...] provider. Document Revised: 09/07/2021 Document Reviewed: 09/07/2021 [employer] Patient Education 2022 [employer] 11/09/2023 15:55:58 Fatigue Fatigue If you have [...] Follow these instructions at home: Medicines Take vqnj-xlt-yqhcxlv and prescription medicines only as told by [...] the National Suicide Prevention Lifeline at or 367. This is open 24 hours a day. Text the Crisis Text Line at 563922. Summary If you have fatigue, you feel [...] provider. Document Revised: 02/06/2022 Document Reviewed: 02/06/2022 [employer] Patient Education 2022 [employer]. Follow Up Care 11/08/2023 11:31:43 With:PRAVEEN RESENDEZ FAAFP, CHRIS Perez, PED Address: [address] [place] [address] [place] [address]- When: Unknown [facility] 11-09-2023 Note Patient Education [...] health care provider. General instructions ? Take kngq-nnx-yowhewq and prescription medicines only as told by [...] Reviewed: 09/07/2021 Elsevier Patient Education ? 2022 [employer]. Endocrinology Preventing Hypoglycemia Hypoglycemia occurs when the [...] may not (more content not included)... [facility] 11-09-2023 History of Present illness Narrative Patient appears on the [facility] First Time Treatment List for a non-oncology treatment. No psychosocial assessment is indicated. KRISTOPHER Huerta documented in this encounter [facility] 11-06-2023 Telephone encounter Note Pt informed of Fely's message and denies any questions, needs or concerns at this time. She will call PCP for additional workup of palpitations, should the IV iron not help, or they worsen. Discussed reasons for immediate evaluation; chest pain, shortness of breath, lightheadedness, dizziness, etc. Appointments verified. Rachael Johnson RN [facility] 11-06-2023 Miscellaneous Notes Pt informed of Fely's message and denies any questions, needs or concerns at this time. She will call PCP for additional workup of palpitations, should the IV iron not help, or they worsen. Discussed reasons for immediate evaluation; chest pain, shortness of breath, lightheadedness, dizziness, etc. Appointments verified. Rachael Johnson RN Thanks Brit - will forward [...] MD Sent: 11/05/2023 11:33 AM EDT To: [facility] Triage Pool; [facility] Clerical Pool Perry Isidro - looks like you need Iron again. Dr. Middleton Cancel her virtual set for 11/05 and 11/19 - infuse 3 doses weekly iron and then see her in 8 weeks in person - labs same day. Thanks! documented in this encounter [facility] 11-05-2023 Telephone encounter Note Thanks [...] get you feeling better. Best, Dr. Middleton [facility] 11-05-2023 Telephone encounter Note Patient [...] is on a blood thinner. Roberta Haskins [facility] 11-05-2023 Telephone encounter Note Appointment tomorrow cancelled. Andres tried calling her this morning and was unable to get a hold of her. Will keep trying patient to schedule for Iron. Roberta Haskins [facility] 11-05-2023 Telephone encounter Note ----- Message from Rachael Johnson RN sent at 11/05/2023 11:53 AM EDT ----- ----- Message ----- From: Kristofer Calix MD Sent: 11/05/2023 11:33 AM EDT To: [facility] Triage Pool; [facility] Clerical Pool Perry Isidro - looks like you need Iron again. Dr. Middleton Cancel her virtual set for 11/05 and 11/19 - infuse 3 doses weekly iron and then see her in 8 weeks in person - labs same day. Thanks! [facility] 10-23-2023 Hospital Discharge instructions Patient [...] specializes in ear, nose, and throat disorders (compliance monitor, or ENT) for more tests and treatment. [...] (rhinoplasty). Follow these instructions at home: Take euae-pds-gzfvnhi and prescription medicines only as told by [...] specializes in ear, nose, and throat disorders (compliance monitor, or ENT) for more tests and treatment. This information is not intended to replace advice given to you by your health care provider. Make sure you discuss any questions you have with your health care provider. Document Revised: 12/12/2021 Document Reviewed: 12/12/2021 [employer] Patient Education 2022 [employer]. 10/23/2023 17:12:52 Nasal Polyps Nasal Polyps Nasal [...] instructions at home: Medicines Take or use oxlh-mbb-ezbugan and prescription medicines only as told by [...] provider. Document Revised: 04/05/2022 Document Reviewed: 04/05/2022 [employer] Patient Education 2022 [employer]. 10/23/2023 17:12:52 Nasal Polypectomy Nasal Polypectomy Nasal [...] including vitamins, herbs, eye drops, creams, and vbyj-ozk-hggbdlh medicines. Any problems you or family members [...] provider tells you to take them. Taking kysy-jgg-ubuuefz medicines, vitamins, herbs, and supplements. General instructions [...] provider. Document Revised: 04/05/2022 Document Reviewed: 04/05/2022 [employer] Patient Education 2022 [employer]. 10/23/2023 17:12:46 BMI for Adults BMI for [...] numbers. This can be done either in [place] or metric measurements. Note that charts and online BMI calculators are available to help you find your BMI quickly and easily without having to do these calculations yourself. To calculate your BMI in [place] measurements: 1.Measure your weight in pounds [...] Centers for Disease Control and Prevention: www.cdc.gov [place] Heart Association: www.heart.org National Heart, Lung, and Blood [place]: www.nhlbi.nih.gov Summary Body mass index (BMI) is a number that is calculated from a person's weight and height. BMI may help estimate how much of a person's weight is composed of fat. BMI can help identify those who may be at higher risk for certain medical problems. BMI can be measured using [place] measurements or metric measurements. BMI charts are used to identify whether you are underweight, normal weight, overweight, or obese. This information is not intended to replace advice given to you by your health care provider. Make sure you discuss any questions you have with your health care provider. Document Revised: 01/07/2020 Document Reviewed: 11/14/2019 [employer] Patient Education 2022 [employer]. Follow Up Care 10/23/2023 08:49:41 With:Lourdes Urrutia Address: [address], [place] [address]- When: only if needed [facility] 09-28-2023 Hospital Discharge instructions [...] Follow these instructions at home: Medicines Take ookj-htt-wcuspvf and prescription medicines only as told by [...] Watch your condition for any changes. Take swxh-etc-ytbqrab and prescription medicines only as told by [...] provider. Document Revised: 06/04/2020 Document Reviewed: 08/25/2019 [employer] Patient Education 2022 [employer]. Follow Up Care 09/28/2023 18:22:59 With:Penelope CASAS Address: [address] [place] [address] [place] [id number] Business (1) When:Within 3 Day(s) [facility] 09-28-2023 Hospital Discharge instructions Patient Education [...] numbers. This can be done either in [place] or metric measurements. Note that charts and online BMI calculators are available to help you find your BMI quickly and easily without having to do these calculations yourself. To calculate your BMI in [place] measurements: 1.Measure your weight in pounds [...] Centers for Disease Control and Prevention: www.cdc.gov [place] Heart Association: www.heart.org National Heart, Lung, and Blood [place]: www.nhlbi.nih.gov Summary Body mass index (BMI) is a number that is calculated from a person's weight and height. BMI may help estimate how much of a person's weight is composed of fat. BMI can help identify those who may be at higher risk for certain medical problems. BMI can be measured using [place] measurements or metric measurements. BMI charts are used to identify whether you are underweight, normal weight, overweight, or obese. This information is not intended to replace advice given to you by your health care provider. Make sure you discuss any questions you have with your health care provider. Document Revised: 01/07/2020 Document Reviewed: 11/14/2019 [employer] Patient Education 2022 [employer]. 09/28/2023 18:24:42 Hypertension, Adult, Tjhf-aq-Zory Hypertension, Adult Hypertension is another name for [...] doctor. Keep all follow-up visits. Medicines Take byyi-zfa-qmofxyq and prescription medicines only as told by [...] provider. Document Revised: 02/02/2022 Document Reviewed: 02/02/2022 [employer] Patient Education 2022 [employer]. 09/28/2023 18:24:32 Abdominal Pain, Adult, Zrgp-qe-Bbbo Abdominal Pain, Adult Many things can cause belly (abdominal) pain. Most times, belly pain is not dangerous. Many cases of belly pain can be watched and treated at home. Sometimes, though, belly pain is serious. Your doctor will try to find the cause of your belly pain. Follow these instructions at home: Medicines Take qtoh-kls-ojcicda and prescription medicines only as told by [...] your belly pain for any changes. Take ptyh-jtc-ugxpaao and prescription medicines only as told by [...] provider. Document Revised: 08/25/2019 Document Reviewed: 08/25/2019 [employer] Patient Education 2022 [employer]. Follow Up Care 09/28/2023 16:11:11 With:Emergency room Address: When: only if needed Comments:Patient was instructed to contact emergency room for any worsening abdominal pain, concerns, or complications. [facility] 09-28-2023 Evaluation + Plan [...] 12:40:00 PM Scheduled Provider:Penelope CASAS DO, FAAFP Location:[facility] Appointment Type:FM Open Future Scheduled Tests Laboratory* HgbA1c 08/03/23 [facility]05-30-2024 Telephone encounter Note* Telephone Encounter - Roberta Haskins - 09/27/2023 4:38 PM EDT Attempt has been made x2 to reschedule patient. She did not have labs drawn. Roberta Haskins [facility]05-30-2024 Miscellaneous Notes* Telephone Encounter - Roberta Haskins - 09/27/2023 4:38 PM EDT Attempt has been made x2 to reschedule patient. She did not have labs drawn. Roberta Haskins documented in this encounterSy[facility]05-[facility] History of Present illness Narrative* Kristofer Calix MD - 09/26/2023 9:11 AM EDT Did not have labs done to prep for this visit - reschedule. Kristofer Calix MD documented in this encounterSycamore [facility] Center04-[facility]24 Hospital Discharge instructions Patient Education [...] your health care provider or diet and youth nutritional monitor (dietitian). This may include: ?Eating fewer calories. [...] provider. Document Revised: 06/12/2021 Document Reviewed: 06/12/2021 [employer] Patient Education 2022 [employer]. Follow Up Care 02/15/2023 10:07:52 With:PRAVEEN RESENDEZ FAAFP, Penelope Tony, CHRIS, PED Address: [address], [place] [address]- When:Within 4 Month(s) [facility] 04-05-2024 Evaluation + Plan note Future Scheduled Tests Laboratory* HgbA1c 08/03/23 Radiology* CT Soft Tissue Neck w/ Contrast 11/12/23 [facility] 02-22-2024 Hospital Discharge instructions [...] or if there is an kennedy for Preventsys. Most glucose meters store a record of [...] mayhave. Where to find more information The [place] Diabetes Association: www.diabetes.org The Association of Diabetes [...] provider. Document Revised: 01/12/2021 Document Reviewed: 01/12/2021 [employer] Patient Education 2022 [employer]. 06/21/2023 06:07:34 Preventing Iron Deficiency Anemia, Adult [...] iron. Foods high in vitamin C include: ?Ascension fruits, such as tai, oranges, and grapefruits. [...] iron supplement is right for you. Take qnla-udm-djwexil and prescription medicines only as told by your health care provider. Keep all follow-up visits. Where to find more information Learn more about preventing iron deficiency from: National Heart, Lung, and Blood [place]: www.nhlbi.nih.gov [place] Society of Hematology: www.hematology.org Contact a health [...] provider. Document Revised: 05/24/2022 Document Reviewed: 05/24/2022 [employer] Patient Education 2022 [employer]. 06/21/2023 06:07:28 BMI for Adults BMI for [...] numbers. This can be done either in [place] or metric measurements. Note that charts and online BMI calculators are available to help you find your BMI quickly and easily without having to do these calculations yourself. To calculate your BMI in [place] ([place] measurements: 1.Measure your weight in pounds [...] Centers for Disease Control and Prevention: www.cdc.gov [place] Heart Association: www.heart.org National Heart, Lung, and Blood [place]: www.nhlbi.nih.gov Summary Body mass index (BMI) is a number that is calculated from a person's weight and height. BMI may help estimate how much of a person's weight is composed of fat. BMI can help identify thosewho may be at higher risk for certain medical problems. BMI can be measured using [place] measurements or metric measurements. BMI charts are used to identify whether you are underweight, normal weight, overweight, or obese. This information is not intended to replace advice given to you by your health care provider. Make sure you discuss any questions you have with your health care provider. Document Revised: 01/07/2020 Document Reviewed: 11/14/2019 [employer] Patient Education 2022 [employer]. Follow Up Care 06/19/2023 13:39:56 With:PRAVEEN RESENDEZ FAAFP, Penelope Tony, CHRIS, PED Address: [address], [place] [address]- When: Unknown [facility] 02-20-2024 Miscellaneous Notes* Telephone [...] 12:26 PM EST MyChart message sent Rachael Johsnon RN * Telephone Encounter - Rachael Johnson [...] lab results Roberta Haskins documented in this encounterSycam[facility] Center02-[facility]-2024 Instructions* Patient Instructions* Nathaly Carney [...] TSH, Calcium with CMP documented in this encounterSycamore Medical Center02-16-2024 Nurse Note* Serina Horton MA [...] exercise. Serina Dawson MA documented in this encounterSycamore Medical Center02-16-2024 History of Present illness Narrative* Kristofer Calix MD - 06/15/2023 2:00 PM EST Images from the original note were not included. NAME: Sanna Rendon CLINIC NO.: [id number] DATE OF SERVICE: June 15, 2023 (kingstonva) Some elements in this clinic note that [...] later in 2018. These were found in [place], [place]. I don't have access to these [...] a target-like rash shortly before presenting to [facility] [place] [facility] in 2016 with headaches and was [...] Monge soon. When she hada stoke in [place], she had symptoms up to a month [...] and stayed on Lovenox Hgb 13.1 @ [facility] Recommended ER if persisting bleeding [...] and at age 69. Both lived in [facility] but she was adopted. She was not able to see ID in October and will be seeing Dr. Baugh next week. Also will have her see Dr. Hamlin for her clotting disorder and make any other recommendations to optimize her treatment. Updated Visit, October 08, 2020: Telephone only Received call from pt stating she was seen in [facility] ER for numbness in her chest, throat, and extremities, and sob which has been worsening over the last week. We arranged a telephone visit for her chanw questions with me. Sanna Rendon is a 34 year old female seen for Hypercoagulable state and recent concerns and symptoms that required her to be seen at [facility] ER. She went to the ER with Gradual worsening of breathing after progressive tingling of fingers and legs. She currently remains very fatigued even though she is sleeping well. Now recalls that before her stroke she remembers having a bull's eye rash and was seen with severe headaches in [facility] was found to have a stroke [...] a root canal and was sent to [facility] for MRI which was negative [...] history goes back to January 2016 in [facility] where she had persisting headaches and slurred speech followed by lower extremity weakness. This took a few months to resolve and she is back to her normal state of being but some point in time during her her next she was seen by Dr. Humera Hyde in [place] as well and was found to have [...] which included preparing to see the patient, iawv-gn-dgoe patient care, completing clinical documentation, performing a medically appropriate examination, counseling and educating the patient/family/caregiver, ordering medications, tests, or p rocedures, independently interpreting results (not separately reported), communicating results to the patient/family/caregiver, and care coordination (not separately reported). Kristofer Calix MD, CPE Hematology and Oncology Services Provided at: [place], [place] Scribe Attestation: This note was scribed [...] me and under my direction. CC: MD Chalino Dayy Spencer Herrmann, [address] [place] [address] Humaira Gaviria MD [address] [place] [id number] MD Cosmo Kingston MD Michael Blank, MD documented in this encounterSycamore Medical Center02-12-2024 Miscellaneous Notes* Telephone Encounter - Ebony Redding Ma - 06/11/2023 10:43 AM EST Labs for appointment on 06/15. Ebony Redding Ma documented in this encounterSycamore Medical Center02-12-2024 Miscellaneous Notes* Telephone Encounter - [...] back to see Dr. Crow Monge / Riaz / Yadi Dx: vision changes and numbness of face. Pt states that it has been a few years since she was last seen by him. [facility] [address] [place], Please fax records Andres, Please follow up on this appt. Thank you documented in this encounterSycamore Medical Center02-01-2024 History of Present illness Narrative* Kristofer Calix MD - 05/31/2023 4:30 PM EST Images from the original note were not included. NAME: Sanna Rendon CLINIC NO.: [id number] DATE OF SERVICE: May 31, 2023 (berna) Some elements in this clinic note that are critical to medical decision making have been carefully reviewed and included from a prior clinic note dated: March 19, 2023 (Levon) Additional Clinicians involved in Sanna Rendon's care: Drs. Herrmann, Jorge Monge, Humaira Gaviria, VIRTUAL VISIT PROGRESS NOTE This is a virtual visit using [employer] Video Visit. It required patient- provider interaction [...] later in 2018. These were found in [place], [place]. I don't have access to these [...] a target-like rash shortly before presenting to [facility] [place] [facility] in 2016 with headaches and was [...] and stayed on Lovenox Hgb 13.1 @ [facility] Recommended ER if persisting bleeding [...] and at age 69. Both lived in [facility] but she was adopted. She was not able to see ID in October and will be seeing Dr. Baugh next week. Also will have her see Dr. Hamlin for her clotting disorder and make any other recommendations to optimize her treatment. Updated Visit, October 08, 2020: Telephone only Received call from pt stating she was seen in [facility] ER for numbness in her chest, throat, and extremities, and sob which has been worsening over the last week. We arranged a telephone visit for her domingoevkimberlyw questions with me. Sanna Rendon is a 34 year old female seen for Hypercoagulable state and recent concerns and symptoms that required her to be seen at [facility] ER. She went to the ER with Gradual worsening of breathing after progressive tingling of fingers and legs. She currently remains very fatigued even though she is sleeping well. Now recalls that before her stroke she remembers having a bull's eye rash and was seen with severe headaches in [facility] was found to have a stroke [...] a root canal and was sent to [facility] for MRI which was negative [...] history goes back to January 2016 in [facility] where she had persisting headaches and slurred speech followed by lower extremity weakness. This took a few months to resolve and she is back to her normal state of being but some point in time during her her next she was seen by Dr. Humera Hyde in [place] as well and was found to have [...] ECOG PERFORMANCE STATUS: 0 PHYSICAL EXAMINATION: Vitals: [facility] 04/08/2019 There is no height or weight [...] CPE Hematology and Oncology Services Provided at: [place], [place] CC: MD Wilton Day, [address] [place] [address] Humaira Gaviria MD [address] [facility] [address] MD Cosmo Kingston MD Michael Blank, MD documented in this encounterSycamore Medical Center02-01-2024 Instructions* Patient Instructions* Kristofer Calix [...] TSH, Calcium with CMP documented in this encounterSycamore Medical Center01-26-2024 Hospital Discharge instructions Patient Education [...] your ears completely after. General instructions Take vvez-jcn-eroxnwj and prescription medicines only as told by [...] provider. Document Revised: 06/27/2021 Document Reviewed: 06/27/2021 [employer] Patient Education 2022 [employer] 05/25/2023 12:02:06 Dyshidrotic Eczema Dyshidrotic Eczema Dyshidrotic [...] care provider who specializes in skin conditions (therapeutic radiologist) tohelp diagnose and treat this condition. How [...] locks in moisture. Medicines Take and apply gzfq-mxa-ztoimsk and prescription medicines only as told by [...] provider. Document Revised: 01/24/2021 Document Reviewed: 01/24/2021 [employer] Patient Education 2022 [employer]. 05/25/2023 12:02:02 Allergies, Adult, Lppi-tu-Mnur Allergies, Adult An allergy means that your [...] instructions at home: Medicines Take or apply pxkk-nzw-vwwddgh and prescription medicines only as told by [...] to the hospital. Summary Take or apply qpei-ced-rvtzijv and prescription medicines only as told by [...] provider. Document Revised: 02/25/2020 Document Reviewed: 02/25/2020 [employer] Patient Education 2022 [employer]. Follow Up Care 05/21/2023 12:21:27 With:PRAVEEN RESENDEZ FAAFP, CHRIS Perez, PED Address: [address] [place] [id number] When:Within 2 Month(s) [facility] 11-20-2023 History of Present illness Narrative* Kristofer Calix MD - 03/19/2023 4:45 PM EST Images from the original note were not included. NAME: Sanna Rendon CLINIC NO.: [id number] DATE OF SERVICE: March 19, 2023 (Levon) [...] later in 2018. These were found in [place], [place]. I don't have access to these [...] a target-like rash shortly before presenting to [facility] [place] [facility] in 2016 with headaches and was [...] and stayed on Lovenox Hgb 13.1 @ [facility] Recommended ER if persisting bleeding [...] and at age 69. Both lived in [facility] but she was adopted. She was not able to see ID in October and will be seeing Dr. Baugh next week. Also will have her see Dr. Hamlin for her clotting disorder and make any other recommendations to optimize her treatment. Updated Visit, October 08, 2020: Telephone only Received call from pt stating she was seen in [facility] ER for numbness in her chest, throat, and extremities, and sob which has been worsening over the last week. We arranged a telephone visit for her toreview questions with me. Sanna Rendon is a 34 year old female seen for Hypercoagulable state and recent concerns and symptoms that required her to be seen at [facility] ER. She went to the ER with Gradual worsening of breathing after progressive tingling of fingers and legs. She currently remains very fatigued even though she is sleeping well. Now recalls that before her stroke she remembers having a bull's eye rash and was seen with severe headaches in [place], [place] - was found to have a [...] a root canal and was sent to [facility] for MRI which was negative [...] history goes back to January 2016 in [facility] where she had persisting headaches and slurred speech followed by lower extremity weakness. This took a few months to resolve and she is back to her normal state of being but some point in time during her her next she was seen by Dr. Humera Hyde in [place] as well and was found to have [...] CPE Hematology and Oncology Services Provided at: [place], [place] CC: MD Wilton Day [address] [place] [address] Humaira Gaviria MD [address] [facility] [address] MD Cosmo Kingston MD Michael Blank, MD documented in this encounterSycamore Medical Center11-20-2023 Instructions* Patient Instructions* Kristofer aClix MD - 03/19/2023 4:44 PM EST Continue Lovenox - patient prefers 40 mg (rather than rec 80mg) Take B12 supplement in the form of a sublingual tablet. Take Vitamin D3 5000 international unit(s) daily Check labs in 8 weeks Phone / Virtual call after documented in this encounterSycamore Medical Center10-19-2023 Hospital Discharge instructions Patient Education 02/15/2023 10:13:08 Ear Drops, Adult, Otjn-yf-Wkud Ear Drops, Adult Your doctor has found [...] cannot use soap and water, use hand lead custodian. 2.Make sure your ears are clean and [...] you cannot use soapand water, use hand lead custodian. Follow these instructions at home: Use the [...] provider. Document Revised: 02/11/2020 Document Reviewed: 02/11/2020 [employer] Patient Education 2022 [employer] 02/15/2023 10:13:05 Otitis Externa, Vfkm-gu-Zeia Otitis Externa Otitis externa is an infection [...] if you start to feel better. Take gmwa-bed-gvrkxtl and prescription medicines only as told by [...] provider. Document Revised: 06/29/2021 Document Reviewed: 06/29/2021 [employer] Patient Education 2022 [employer]. Follow Up Care 02/14/2023 12:28:12 With:PRAVEEN RESENDEZ FAAFP, Penelope Tony, CHRIS, PED Address: [place] [address]- When:Within 2 Month(s) [facility] 08-25-2023 Hospital Discharge instructions [...] including vitamins, herbs, eye drops, creams, and ctps-tyw-tbozjtb medicines. ?Whether you are or may be [...] provider. Document Revised: 12/28/2021 Document Reviewed: 11/19/2020 [employer] Patient Education 2022 [employer] 12/22/2022 15:19:23 Fatigue Fatigue If you have [...] Follow these instructions at home: Medicines Take rwzd-ivx-caceugd and prescription medicines only as told by [...] the National Suicide Prevention Lifeline at or 117. This is open 24 hours a day. Text the Crisis Text Line at 087017. Summary If you have fatigue, you feel [...] provider. Document Revised: 02/06/2022 Document Reviewed: 02/06/2022 [employer] Patient Education 2022 [employer]. Follow Up Care 12/22/2022 10:22:02 With:Shirlene YEBOAH, Lourdes Baltazar Address: [address] [place] [address], [facility] [place] [address]- When: only if needed [facility] 08-25-2023 Instructions* Patient Instructions* Kristofer Calix MD - 12/22/2022 10:13 AM EDT Continue Lovenox - patient prefers 40 mg (rather than rec 80mg) Take B12 supplement in the form of a sublingual tablet. Take Vitamin D3 5000 international unit(s) daily Check labs in 8 weeks Phone / Virtual call after documented in this encounterSycamore Medical Center08-25-2023 History of Present illness Narrative* Kristofer Calix MD - 12/22/2022 9:55 AM EDT Images from the original note were not included. Kristofer Calix MD NAME: Sanna Rendon CLINIC NO.: [id number] DATE OF SERVICE: December 22, 2022 (Levon) [...] later in 2018. These were found in [place], [place]. I don't have access to these [...] a target-like rash shortly before presenting to [facility] [place] [facility] in 2016 with headaches and was [...] and stayed on Lovenox Hgb 13.1 @ [facility] Recommended ER if persisting bleeding [...] and at age 69. Both lived in [place], [place] - but she was adopted. She was not able to see ID in October and will be seeing Dr. Baugh next week. Also will have her see Dr. Hamlin for her clotting disorder and make any other recommendations to optimize her treatment. Updated Visit, October 08, 2020: Telephone only Received call from pt stating she was seen in [facility] ER for numbness in her chest, throat, and extremities, and sob which has been worsening over the last week. We arranged a telephone visit for her toreview questions with me. Sanna Rendon is a 34 year old female seen for Hypercoagulable state and recent concerns and symptoms that required her to be seen at [facility] ER. She went to the ER with Gradual worsening of breathing after progressive tingling of fingers and legs. She currently remains very fatigued even though she is sleeping well. Now recalls that before her stroke she remembers having a bull's eye rash and was seen with severe headaches in [place], [place] - was found to have a [...] a root canal and was sent to [facility] for MRI which was negative [...] history goes back to January 2016 in [facility] where she had persisting headaches and slurred speech followed by lower extremity weakness. This took a few months to resolve and she is back to her normal state of being but some point in time during her her next she was seen by Dr. Humera Hyde in [place] as well and was found to have [...] CPE Hematology and Oncology Services Provided at: [place], [place] CC: MD Wilton Day, [address] [place] [address] Humaira Gaviria MD [address] [place] [id number] MD Cosmo Kingston MD Michael Blank, MD documented in this encounterSycamore Medical Center08-16-2023 Miscellaneous Notes* Telephone Encounter - [...] later time. Roberta Haskins documented in this encounterSycamore Medical Center06-23-2023 Hospital Discharge instructions Patient Education [...] your health care provider or diet and youth nutritional monitor (dietitian). This may include: ?Eating fewer calories. [...] provider. Document Revised: 06/12/2021 Document Reviewed: 06/12/2021 [employer] Patient Education 2022 [employer]. 10/20/2022 10:37:18 Preventing Type 2 Diabetes Mellitus [...] with a registered dietitian. This diet and youth nutritional monitor can help you make a healthy eating plan and help you understand portion sizes and food labels. Where to find support Ask your health care provider to recommend a registered dietitian, a certified diabetes care and multimedia educational specialist, or a weight loss program. Look for local or online weight loss groups. Join a gym, fitness club, or outdoor activity group, such as a walking club. Where to find more information For help and guidance and to learn more about diabetes and diabetes prevention, visit: [place] Diabetes Association (ADA): www.diabetes.org National [place] of Diabetes and Digestive and Kidney Diseases: www.niddk.nih.gov To learn more about healthy eating, visit: U.S. Department of Agriculture (Ignite100): www.choosemyplate.gov Office of Disease Prevention and Health [...] provider. Document Revised: 07/11/2021 Document Reviewed: 07/11/2021 [employer] Patient Education 2022 [employer]. 10/20/2022 10:37:17 Preventing Hypoglycemia Preventing Hypoglycemia Hypoglycemia [...] your hypoglycemia. Where to find more information [place] Diabetes Association: www.diabetes.org National [place] of Diabetes and Digestive and Kidney Diseases: [...] provider. Document Revised: 03/17/2021 Document Reviewed: 03/17/2021 [employer] Patient Education 2022 [employer]. 10/20/2022 10:37:16 Gestational Diabetes Mellitus, Diagnosis, Iwgw-mo-Pkdd Gestational Diabetes Mellitus, Diagnosis Gestational diabetes mellitus [...] follow-up visits. Where to find more information [place] Diabetes Association (ADA): diabetes.org Association of Diabetes Care & Education Specialists (ADCES): diabeteseducator.org Centers for Disease Control and Prevention (CDC): cdc.gov [place] Association: americanpregnancy.org U.S. Department of Agriculture MyPlate: [...] provider. Document Revised: 09/20/2020 Document Reviewed: 09/20/2020 [employer] Patient Education 2022 [employer]. Follow Up Care 09/19/2022 14:47:09 With:PRAVEEN RESENDEZ FAAFP, Penelope Tony, CHRIS, PED Address: [address], [facility] [place] [address]- When:Within 3 Month(s) [facility] 06-01-2023 History of Present illness Narrative* Kristofer Calix MD - 09/28/2022 5:00 PM EDT Images from the original note were not included. Kristofer Calix MD NAME: Sanna Rendon CLINIC NO.: [id number] DATE OF SERVICE: September 28, 2022 (Levon) [...] later in 2018. These were found in [place], [place]. I don't have access to these [...] a target-like rash shortly before presenting to [facility] [place] [facility] in 2016 with headaches and was [...] and stayed on Lovenox Hgb 13.1 @ [facility] Recommended ER if persisting bleeding [...] and at age 69. Both lived in [facility] but she was adopted. She was not able to see ID in October and will be seeing Dr. Baugh next week. Also will have her see Dr. Hamlin for her clotting disorder and make any other recommendations to optimize her treatment. Updated Visit, October 08, 2020: Telephone only Received call from pt stating she was seen in [facility] ER for numbness in her chest, throat, and extremities, and sob which has been worsening over the last week. We arranged a telephone visit for her toreview questions with me. Sanna Rendon is a 34 year old female seen for Hypercoagulable state and recent concerns and symptoms that required her to be seen at [facility] ER. She went to the ER with Gradual worsening of breathing after progressive tingling of fingers and legs. She currently remains very fatigued even though she is sleeping well. Now recalls that before her stroke she remembers having a bull's eye rash and was seen with severe headaches in [facility] was found to have a stroke [...] a root canal and was sent to [facility] for MRI which was negative [...] history goes back to January 2016 in [facility] where she had persisting headaches and slurred speech followed by lower extremity weakness. This took a few months to resolve and she is back to her normal state of being but some point in time during her her next she was seen by Dr. Humera Hyde in [place] as well and was found to have [...] CPE Hematology and Oncology Services Provided at: [place], [place] CC: MD Wilton Day, [address] [address] Humaira Gaviria MD [address] [place] [address] [place] [address] MD Cosmo Kingston MD Michael Blank, MD documented in this encounterSycamore Medical Center05-24-2023 Miscellaneous Notes* Telephone Encounter - Cheri Acharya Sec - 09/20/2022 7:06 AM EDT Cxed appt * Telephone Encounter - Valeri Yeung RN - 09/19/2022 3:29 PM EDT Patient would like to have labs drawn at [facility]. Called [facility] lab to get fax number. Lab orders faxed to [phone] Valeri Yeung RN PSS: Can you cancel lab appointment for 09/21/22 here. Thanks. Valeri Yeung RN documented in this encounterSycamore Medical Center04-04-2023 Instructions* Patient Instructions* Kristofer Calix MD - 08/01/2022 10:56 AM EDT Continue Lovenox - patient prefers 40 mg (rather than rec 80mg) 8 weeks - labs Phone / Virtual call after documented in this encounterSycamore Medical Center03-30-2023 History of Present illness Narrative* Kristofer Calix MD - 07/27/2022 1:18 PM EDT NAME: Sanna Rendon CLINIC NO.: [id number] DATE OF SERVICE: July 27, 2022 (Levon) [...] later in 2018. These were found in [place], [place]. I don't have access to these [...] a target-like rash shortly before presenting to [facility] [place] [facility] in 2016 with headaches and was [...] and at age 69. Both lived in [facility] but she was adopted. She was not able to see ID in October and will be seeing Dr. Baugh next week. Also will have her see Dr. Hamlin for her clotting disorder and make any other recommendations to optimize her treatment. Updated Visit, October 08, 2020: Telephone only Received call from pt stating she was seen in [facility] ER for numbness in her chest, throat, and extremities, and sob which has been worsening over the last week. We arranged a telephone visit for her toreview questions with me. Sanna Rendon is a 34 year old female seen for Hypercoagulable state and recent concerns and symptoms that required her to be seen at [facility] ER. She went to the ER with Gradual worsening of breathing after progressive tingling of fingers and legs. She currently remains very fatigued even though she is sleeping well. Now recalls that before her stroke she remembers having a bull's eye rash and was seen with severe headaches in [facility] was found to have a stroke [...] a root canal and was sent to [facility] for MRI which was negative [...] history goes back to January 2016 in [facility] where she had persisting headaches and slurred speech followed by lower extremity weakness. This took a few months to resolve and she is back to her normal state of being but some point in time during her her next she was seen by Dr. Humera Hyde in [place] as well and was found to have [...] which included preparing to see the patient, mtjh-aa-ubck patient care, completing clinical documentation, obtaining and/or reviewing separately obtained history, performing a medically appropriate examination, counseling and educating the pat ient/family/caregiver, ordering medications, tests, or procedures, independently interpreting results (not separately reported), and care coordination (not separately reported). Kristofer Calix MD, CPE Hematology and Oncology Services Provided at: [place], [place] CC: Dr. Praveen MD [address] [place] [address] Humaira Gaviria MD [address] [place] [id number] MD Comso Kingston MD Michael Blank, MD documented in this encounterSycamore Medical Center12-07-2022 History of Present illness Narrative* Alison Linares RN - 04/05/2022 2:43 PM EST Pt [...] to standard infusion rate. documented in this encounterSycamore Medical Center12-06-2022 Miscellaneous Notes* Telephone Encounter - [...] questions answered. Pt transferred to front end drupal developer at her request so she can reschedule dates of IV iron d/t otherappts. FELY: Pt would like to have Venofer ordered and not get Monoferric even if approved. Please place orders if agreeable. Meme Gonzalez RN documented in this encounterSycamore Medical Center12-01-2022 Miscellaneous Notes* Telephone Encounter - [...] were not included. Kristofer Calix MD [facility] Triage Pool; [facility] Clerical Pool She needs iron MUNIRA - if monoferric isn't approved, lets get her in weekly for Venna for. * Telephone Encounter - Roberta Semon - 03/27/2022 2:57 PM EST 2. Consider IV iron a. Triage nurse to please call iron results when available this week documented in this encounterSycamore Medical Center11-28-2022 Instructions* Patient Instructions* Kristofer Calix MD - 03/27/2022 2:51 PM EST Continue Lovenox - patient prefers 40 mg (rather than rec 80mg) Consider IV iron Triage nurse to please call iron results when available this week Will recheck antiphospholipid antibodies as ordered and every 6 months. RTC in 8 weeks - labs same day. documented in this encounterSycamore Medical Center11-28-2022 History of Present illness Narrative* Kristofer Calix MD - 03/27/2022 2:15 PM EST Images from the original note were not included. NAME: Sanna Rendon CLINIC NO.: [id number] DATE OF SERVICE: March 27, 2022 (Levon) Some elements in this clinic note that are critical to medical decision making have been carefully reviewed and included from a prior clinic note dated: January 30, 2022 (Levon) Additional Clinicians involved in Sanna Rendon's care: Jorge Mcwilliams, Humaira Gaviria, CC: hypercoag state. ASSESSMENT: 36 year old woman 25 weeks presents with a prior history of CVA in 2016 and anantiphospholipid antibody that was identified much later in 2018. These were found in [place], [place]. I don't have access to these [...] a target-like rash shortly before presenting to [facility] in 2016 with headaches and was [...] and at age 69. Both lived in [facility] but she was adopted. She was not able to see ID in October and will be seeing Dr. Baugh next week. Also will have her see Dr. Hamlin for her clotting disorder and make any other recommendations to optimize her treatment. Updated Visit, October 08, 2020: Telephone only Received call from pt stating she was seen in [facility] ER for numbness in her chest, throat, and extremities, and sob which has been worsening over the last week. We arranged a telephone visit for her franci questions with me. Sanna Rendon is a 34 year old female seen for Hypercoagulable state and recent concerns and symptoms that required her to be seen at [facility] ER. She went to the ER with Gradual worsening of breathing after progressive tingling of fingers and legs. She currently remains very fatigued even though she is sleeping well. Now recalls that before her stroke she remembers having a bull's eye rash and was seen with severe headaches in [place], [place] - was found to have a [...] a root canal and was sent to [facility] for MRI which was negative [...] history goes back to January 2016 in [facility] where she had persisting headaches and slurred speech followed by lower extremity weakness. This took a few months to resolve and she is back to her normal state of being but some point in time during her her next she was seen by Dr. Humera Hyde in [place] as well and was found to have [...] which included preparing to see the patient, bkaj-[id number] patient care, completing clinical documentation, obtaining and/or reviewing separately obtained history, performing a medically appropriate examination, counseling and educating the pat ient/family/caregiver, ordering medications, tests, or procedures, independently interpreting results (not separately reported), and care coordination (not separately reported). Kristofer Calix MD, CPE Hematology and Oncology Services Provided at: [place], [place] CC: MD Wilton Day, DO [address] [place] [address] Humaira Gaviria MD [address] [place] [address] [place] [address] MD Cosmo Kingston MD Michael Blank, MD documented in this encounterSycamore Medical Center10-03-2022 Instructions* Patient Instructions* Kristofer Calix MD - 01/30/2022 12:[address] Hamlin's expertise and will prescribe Lovenox - patient prefers 40 mg (rather than rec 80mg) Will recheck antiphospholipid antibodies as ordered and every 6 months. RTC in 8 weeks - labs same day. documented in this encounterSycamore Medical Center10-03-2022 History of Present illness Narrative* Kristofer Calix MD - 01/30/2022 11:59 AM EDT Images from the original note were not included. NAME: Sanna Rendon CLINIC NO.: [id number] DATE OF SERVICE: January 30, 2022 Some elements in this clinic note that are critical to medical decision making have been carefully reviewed and included from a prior clinic note dated: August 01, 2021 Additional Clinicians involved in Sanna Rendon's care: Jorge Mcwilliams, Humaira Gaviria, CC: hypercoag state. ASSESSMENT: 36 year old woman 25 weeks presents with a prior history of CVA in 2016 and anantiphospholipid antibody that was identified much later in 2018. These were found in [place], [place]. I don't have access to these [...] a target-like rash shortly before presenting to [facility] in 2016 with headaches and was [...] and at age 69. Both lived in [facility] but she was adopted. She was not able to see ID in October and will be seeing Dr. Baugh next week. Also will have her see Dr. Hamlin for her clotting disorder and make any other recommendations to optimize her treatment. Updated Visit, October 08, 2020: Telephone only Received call from pt stating she was seen in [facility] ER for numbness in her chest, throat, and extremities, and sob which has been worsening over the last week. We arranged a telephone visit for her chanw questions with me. Sanna Rendon is a 34 year old female seen for Hypercoagulable state and recent concerns and symptoms that required her to be seen at [facility] ER. She went to the ER with Gradual worsening of breathing after progressive tingling of fingers and legs. She currently remains very fatigued even though she is sleeping well. Now recalls that before her stroke she remembers having a bull's eye rash and was seen with severe headaches in [facility] was found to have a stroke [...] a root canal and was sent to [facility] for MRI which was negative [...] history goes back to January 2016 in [facility] where she had persisting headaches and slurred speech followed by lower extremity weakness. This took a few months to resolve and she is back to her normal state of being but some point in time during her her next she was seen by Dr. Humera Hyde in [place] as well and was found to have [...] which included preparing to see the patient, ztth-ke-ayrq patient care, completing clinical documentation, obtaining and/or reviewing separately obtained history, performing a medically appropriate examination, counseling and educating the pat ient/family/caregiver, and ordering medications, tests, or procedures. Kristofer Calix MD, [place], [place] CC: [facility]. Praveen MD [facility], [address] [place] [address] Humaira Gaviria MD [address] [place] [id number] MD Cosmo Kingston MD Michael Blank, MD documented in this encounterSycamore Medical Center10-03-2022 Nurse Note* Serina Dawson MA - 01/30/2022 11:55 AM EDT Patient states she may be diagnosed with gestational diabetes, she was from 215 to 52 a couple hours later after eating wheat cereal. She sees OB tomorrow. Serina Dawson MA documented in this encounterSycamore Medical Center09-02-2022 Miscellaneous Notes* Telephone Encounter - Tonja Pope RN - 12/30/2021 10:15 AM EDT Call received from Sanna requesting refill of Lovenox 40 mg to be sent to [facility] in [place]. FELY: Please review and approve if you agree. Tonja Chery RN documented in this encounterSycamore Medical Center06-13-2022 Miscellaneous Notes* Telephone Encounter - Meme Easton RN - 10/10/2021 12:15 PM EDT Received call from pt requesting refill of Lovenox 40 mg to be sent to [facility] in [place]. FELY: Pt also states she had one episode of blood in her stool which was dripping blood which concerned her. She is not ready to move to 80 mg of Lovenox at this time. Order pending. Please review and sign if agreeable. Meme Easton RN documented in this encounterSycamore Medical Center05-10-2022 Miscellaneous Notes* Telephone Encounter - [...] agreeable. Meme Easton RN documented in this encounterSycamore Medical Center05-09-2022 Miscellaneous Notes* Telephone Encounter - [...] advise. Meme Easton RN documented in this encounterSycamore Medical Center04-25-2022 Miscellaneous Notes* Telephone Encounter - [...] Thoughts? Meme Easton RN documented in this encounterSycamore Medical Center04-22-2022 Hospital Discharge instructions Patient Education [...] including vitamins, herbs, eye drops, creams, and djmg-xya-mvtifgi medicines. ?Whether you are or may be [...] 02/11/2008 Document Revised: 08/05/2019 Document Reviewed: 02/18/2018 [employer] Patient Education 2020 [employer] 08/19/2021 13:02:21 Dysuria Dysuria Dysuria is [...] alcohol may irritate the prostate. Medicines Take bhhr-qgk-spyjroo and prescription medicines only as told by [...] 01/12/2005 Document Revised: 03/29/2018 Document Reviewed: 01/31/2018 [employer] Patient Education 2020 [employer]. 08/19/2021 13:02:17 Budget-Friendly Healthy Eating Budget-Friendly Healthy [...] frozen fruits, and frozen vegetables. Avoid buying frjde-lw-eez foods, such as pre-cut fruits and vegetables [...] 12/18/2014 Document Revised: 04/17/2018 Document Reviewed: 04/17/2018 [employer] Patient Education 2020 [employer]. 08/19/2021 13:02:15 BMI for Adults BMI for [...] height. This can be done either in [place] ([place] or metric measurements. Note that charts are available to help you find your BMI quickly and easily without having to do these calculations yourself. To calculate your BMI in [place] measurements, your health care provider will: [...] medical problems. BMI can be measured using [place] measurements or metric measurements. To interpret your [...] 12/26/2004 Document Revised: 03/29/2018 Document Reviewed: 02/27/2018 [employer] Patient Education 2020 [employer]. 08/19/2021 13:02:11 Paresthesia Paresthesia Paresthesia is an [...] fried or sweet foods. General instructions Take zdfk-usj-bvjpnxu and prescription medicines only as told by [...] 04/06/2003 Document Revised: 05/12/2019 Document Reviewed: 04/25/2018 [employer] Patient Education 2020 [employer] Follow Up Care 08/19/2021 09:17:52 With:Penelope CASAS DO, FAAFP, FAM, PED Address: [place] [address]- When:1 to 2 weeks [facility] [place] 04-22-2022 Evaluation + Plan note Future Scheduled Tests Radiology* XR Spine Lumbosacral Minimum 4 Views 08/19/21 [facility]04-07-2022 Miscellaneous Notes* Telephone Encounter - Roberta Haskins - 08/04/2021 3:36 PM EDT Patient is scheduled for 09/[address] Elliott. Roberta Haskins * Telephone Encounter - Roberta Haskins - 08/01/2021 1:05 PM EDT Sent Email to Cancer Answer Line to refer patient back to Dr. Cosmo Elliott Dx: Primary hypercoagulable state (HCC) Roberta Haskins documented in this encounterSycamore Medical Center04-04-2022 Nurse Note* Ebony Redding Ma - 08/01/2021 12:48 PM EDT UA ran as ordered. Ebony Redding Ma documented in this encounterSycamore Medical Center03-28-2020 Evaluation + Plan note Future Appointments Appointment Date:07/25/2024 02:30:00 PM Scheduled Provider: Location:[facility] Appointment Type:CV EKG (FT) Appointment Date:07/25/2024 03:00:00 PM Scheduled Provider: Location:[facility] Appointment Type:CV Holter/Event (FT) Appointment Date:09/09/2024 08:20:00 AM Scheduled Provider:Penelope CASAS DO, FAAFP Location:[facility] Appointment Type:FM Open Future Scheduled Tests Laboratory* HgbA1c 08/05/24 * HgbA1c 11/04/24 Radiology* CT Soft Tissue Neck w/ Contrast 11/12/23 [facility] [id number] Evaluation + Plan note Future Appointments Appointment Date:07/25/2024 02:30:00 PM Scheduled [facility]: [facility] Appoint[facility] Type:CV EKG (FT) Appointment Date:07/25/2024 03:00:00 PM Scheduled Provider: [facility] Appoint[facility] Type:CV Holter/Event (FT) Appointment Date:09/09/2024 08:20:00 AM Scheduled Provider:Penelope CASAS DO, FAAFP [facility] [facility] App[facility] Type:FM Open Diagnostic Tests Pending * Hepatitis B Surface Antigen 07/09/24 * HCV Antibody RFX to Quant PCR 07/09/24 * Hep Be Ag 07/09/24 * HIV Screen 4th Generation wRfx 07/09/24 Future Scheduled Tests Laboratory* HgbA1c 08/05/24 * HgbA1c 11/04/24 Radiology* CT Soft Tissue Neck w/ Contrast 11/12/23 [facility] Evaluation + Plan note Future Appointments Appointment Date:11/08/2021 12:40:00 PM Scheduled Provider:Penelope CASAS DO, FAAFP Location:[facility] Appointment Type:FM Open Future Scheduled Tests Radiology* XR Spine Lumbosacral Minimum 4 Views 08/19/21 [facility] [place] Evaluation + Plan note Future Appointments Appointment Date:11/08/2021 12:40:00 PM Scheduled Provider:Penelope CASAS DO, FAAFP Location:[facility] Appointment Type:FM Open Diagnostic Tests Pending * Urine Culture 08/19/21 Future Scheduled Tests Radiology* XR Spine Lumbosacral Minimum 4 [facility] Appointment Date:09/21/2022 10:00:00 AM Scheduled Provider:Penelope CASAS DO, FAAFP Location:[facility] App[facility]ments Appointment Date:10/20/2022 09:40:00 AM Scheduled Provider:Penelope CASAS DO, FAAFP Location:[facility]ments Appointment Date:01/26/2023 10:40:00 AM Scheduled Provider:Penelope CASAS DO, FAAFP Location:[facility] Appointment Type: Open [facility] evaluation + Plan note Future Appointments Appointment Date:04/17/2023 02:20:00 PM Scheduled Provider:Penelope CASAS DO, FAAFP Location:[facility] Appointment Type: Open Future Scheduled Tests Laboratory* HgbA1c 02/15/23 * Thyroid Stimulating Hormone 02/15/23 * Thyroid Stimulating Hormone 01/11/23 [facility] Evaluation + Plan note Future Appointments Appointment Date:07/24/2023 01:20:00 PM Scheduled Provider:Penelope CASAS DO, FAAFP Location:[facility] Appointment Type: Open Future Scheduled Tests Laboratory* HgbA1c 02/15/23 * Thyroid Stimulating Hormone [facility]ments Appointment Date:07/24/2023 01:20:00 PM Scheduled Provider:Penelope CASAS DO, FAAFP Location:[facility] Appointment Type: Open [facility] evaluation + Plan note Future Appointments Appointment Date:12/03/2023 12:40:00 PM Scheduled Provider:Penelope CASAS DO, FAAFP Location:[facility] Appointment Type: Open Future Scheduled Tests Laboratory* HgbA1c 08/03/23 [facility] evaluation + Plan note Future Appointments Appointment Date:12/03/2023 12:40:00 PM Scheduled Provider:Penelope CASAS DO, FAAFP Location[facility] [...] MRI Orbit Face Neck w/o contrast 11/09/23 [facility] Evaluation + Plan note Future Appointments Appointment Date:01/11/2024 08:15:00 PM Scheduled Provider: Location:.SLEEP LAB_ Appointment Type:[employer]SU[employer]PECTOR Sleep Study PSG () Appointment Date:01/29/2024 01:20:00 PM Scheduled Provider:Penelope CASAS DO, FAAFP Location:[facility] Appointment Type:FM Open Diagnostic Tests Pending * Cortisol 12/06/23 * T3 Free 12/06/23 Future Scheduled Tests Laboratory* HgbA1c 08/03/23 Radiology* CT Soft Tissue Neck w/ Contrast 11/12/23 [facility] Evaluation + Plan note Future Appointments Appointment Date:05/16/2024 11:40:00 AM Scheduled Provider:Penelope CASAS DO, FAAFP Location:[facility] Appointment Type:FM Open Future Scheduled Tests Laboratory* HgbA1c 02/05/24 * HgbA1c 05/07/24 * HgbA1c 08/05/24 * HgbA1c 11/04/24 * HgbA1c 08/03/23 * HIV Screen 4th Generation wRfx 02/05/24 * HIV Screen 4th Generation wRfx 02/05/24 * Lipid Panel 02/05/24 Radiology* CT Soft Tissue Neck w/ Contrast 11/12/23 [facility] Evaluation + Plan note Future Appointments Appointment Date:05/16/2024 11:40:00 AM Scheduled Provider:Penelope CASAS DO, FAAFP Location:[facility] Appointment Type:FM Open Future Scheduled Tests Laboratory* HgbA1c 05/07/24 * HgbA1c 08/05/24 * HgbA1c 11/04/24 Radiology* CT Soft Tissue Neck w/ Contrast 11/12/23 [facility] evaluation + Plan note Future Appointments Appointment Date:05/16/2024 11:40:00 AM Scheduled Provider:Penelope CASAS DO, FAAFP Location:[facility] Appointment Type:FM Open Diagnostic Tests Pending * HIV Screen 4th Generation wRfx 02/23/24 Future Scheduled Tests Laboratory* HgbA1c 05/07/24 * HgbA1c 08/05/24 * HgbA1c 11/04/24 Radiology* CT Soft Tissue Neck w/ Contrast 11/12/23 [facility] evaluation + Plan note Future Appointments Appointment Date:05/16/2024 11:40:00 AM Scheduled Provider:Penelope CASAS DO, FAAFP Location:[facility] Appointment Type:FM Open Future Scheduled Tests Laboratory* HgbA1c 08/05/24 * HgbA1c 11/04/24 Radiology* CT Soft Tissue Neck w/ Contrast 11/12/23 [facility] evaluation + Plan note Future Appointments Appointment Date:05/16/2024 11:40:00 AM Scheduled Provider:Penelope CASAS DO, FAAFP Location:[facility] Appointment Type:FM Open Diagnostic Tests Pending * Urine Culture 03/01/24 Future Scheduled Tests Laboratory* HgbA1c 08/05/24 * HgbA1c 11/04/24 Radiology* CT Soft Tissue Neck w/ Contrast 11/12/23 [facility] evaluation + Plan note Future Appointments Appointment Date:07/07/2024 02:20:00 PM Scheduled Provider:Penelope CASAS DO, FAAFP [facility] Appoint[facility] Type:FM Open Future Scheduled Tests Laboratory* HgbA1c 08/05/24 * HgbA1c 11/04/24 Radiology* CT Soft Tissue Neck w/ Contrast 11/12/23 [facility] evaluation + Plan note Future Appointments Appointment Date:09/09/2024 08:20:00 AM Scheduled Provider:Penelope CASAS DO, FAAFP Location:[facility] Appointment Type:FM Open Future Scheduled Tests Laboratory* HgbA1c 08/05/24 * HgbA1c 11/04/24 Radiology* CT Soft Tissue Neck w/ Contrast 11/12/23 [facility] Evaluation note* Diagnosis Infective urethritis- Primary Urethritis, unspecified [facility] Primary hypercoagulable state (HCC) Primary hypercoagulable state CVA, old, speech/language deficit Speech and language deficit, unspecified, 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 Hyposmolality and/or hyponatremia [facility] Diagnosis Primary hypercoagulable state (HCC) Primary hypercoagulable state CVA, old, speech/language deficit Speech and language deficit, unspecified, 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 Hyposmolality and/or hyponatremia [facility] Diagnosis Primary hypercoagulable state (HCC)- Primary Primary hypercoagulable state CVA, old, speech/language deficit Speech and language deficit, unspecified, late effect of cerebrovascular disease Antiphospholipid antibody syndrome (HCC) Primary hypercoagulable state Anemia, unspecified type [facility] Diagnosis Iron deficiency anemia secondary to blood loss (chronic) Iron deficiency anemia of Anemia of mother, complicating , childbirth, or the puerperium, unspecified as to episode of care [facility] 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 Iron deficiency anemia of Anemia of mother, complicating , childbirth, or the puerperium, unspecified as to episode of care [facility] Diagnosis Primary hypercoagulable state (HCC) Primary hypercoagulable state CVA, old, speech/language deficit Speech and language deficit, unspecified, 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 Hyposmolality and/or hyponatremia [facility] Iron deficiency anemia secondary [...] Hyposmolality and/or hyponatremia [facility]* Diagnosis Primary hypercoagulable state (HCC)- Primary Primary hypercoagulable state 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, old, speech/language deficit Speech and language deficit, unspecified, late effect of cerebrovascular disease [facility]* Diagnosis Primary hypercoagulable state (HCC) Primary hypercoagulable state CVA, old, speech/language deficit Speech and language deficit, unspecified, 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 Hyposmolality and/or hyponatremia [facility]* Diagnosis Primary hypercoagulable state (HCC)- Primary Primary hypercoagulable state Iron deficiency anemia of Anemia of mother, complicating , childbirth, or the puerperium, unspecified as to episode of care Iron deficiency anemia secondary to blood loss (chronic) Vitamin D deficiency Unspecified vitamin D deficiency [facility]* Diagnosis Primary hypercoagulable state (HCC)- Primary Primary hypercoagulable state Iron deficiency anemia secondary to blood loss (chronic) Vitamin D deficiency Unspecified vitamin D deficiency CVA, old, speech/language deficit Speech and language deficit, unspecified, late effect of cerebrovascular disease Antiphospholipid antibody syndrome (HCC) Primary hypercoagulable state [facility]* Diagnosis Primary hypercoagulable state (HCC)- Primary Primary hypercoagulable state CVA, old, speech/language deficit Speech and language deficit, unspecified, late effect of cerebrovascular disease Hypercalcemia Vitamin D deficiency Unspecified vitamin D deficiency Iron deficiency anemia secondary to blood loss (chronic) Malaise and fatigue Other malaise and fatigue [facility]* Diagnosis Vitamin D deficiency- Primary Unspecified vitamin D deficiency 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) Antiphospholipid antibody syndrome (HCC) Primary hypercoagulable state Malaise and fatigue Other malaise and fatigue [facility]* Diagnosis Vitamin D deficiency- Primary Unspecified vitamin D deficiency 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) [facility] 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 [facility]* Diagnosis Iron deficiency anemia of - Primary Anemia of mother, complicating , childbirth, or the puerperium, unspecified as to episode of care Iron deficiency anemia secondary to blood loss (chronic) [facility]* Diagnosis Iron deficiency anemia of - Primary Anemia of mother, complicating , childbirth, or the puerperium, unspecified as to episode of care Iron deficiency anemia secondary to blood loss (chronic) [facility] 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 Vitamin D deficiency Unspecified vitamin D deficiency Malaise and fatigue Other malaise and fatigue [facility]* Diagnosis Primary hypercoagulable state (HCC) Primary hypercoagulable state CVA, old, speech/language deficit Speech and language deficit, unspecified, 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 Hyposmolality and/or hyponatremia [facility]* Diagnosis Missed menses , unspecified gestational age Encounter for supervision of normal first in first trimester Hypothyroidism (acquired) (CMS/HCC) Unspecified hypothyroidism Low vitamin D level [facility] Diagnosis [facility] weeks gestation of Second trimester state, incidental Confirm viability with history of miscarriage, ultrasound Encounter for routine screening for malformation using ultrasonics 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) Vitamin D deficiency Unspecified vitamin D deficiency Antiphospholipid antibody syndrome (HCC) Primary hypercoagulable state [facility]* Diagnosis Follow-up visit after miscarriage Abnormal TSH History of thyroid disease documented [facility]* Diagnosis Vaginal bleeding Other specified noninflammatory disorder of vagina Dizziness Dizziness and giddiness Abnormal TSH Vaginal discharge Leukorrhea, not specified as infective Pelvic pain in female Unspecified symptom associated with female genital organs documented in this encounter [facility]* Diagnosis Irregular menstrual cycle documented in this encounter [facility]* Diagnosis Primary hypercoagulable state (HCC) Primary hypercoagulable state CVA, old, speech/language deficit Speech and language deficit, unspecified, 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 Hyposmolality and/or hyponatremia [facility]* Diagnosis Antiphospholipid antibody positive- Primary Other and unspecified nonspecific immunological findings Iron deficiency anemia secondary to blood loss (chronic) Malaise and fatigue Other malaise and fatigue Vitamin D deficiency Unspecified vitamin D deficiency [facility] Diagnosis Amenorrhea Absence of menstruation Missed menses , unspecified gestational age Encounter for supervision of normal first in first trimester Thyroid disease ([facility]/HCC) Unspecified disorder of thyroid documented in this encounter [facility]* Diagnosis Gestational diabetes mellitus (GDM), antepartum, gestational diabetes method of control unspecified- Primary [facility] Diagnosis Primary hypercoagulable state (HCC) Primary hypercoagulable state CVA, old, speech/language deficit Speech and language deficit, unspecified, 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 Hyposmolality and/or hyponatremia [facility]* Diagnosis Primary hypercoagulable state (HCC)- Primary Primary hypercoagulable state CVA, old, speech/language deficit Speech and language deficit, unspecified, 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 Hyposmolality and/or hyponatremia Personal history of TIA (transient ischemic attack) Transient ischemic attack (TIA), and cerebral infarction without residual deficits [facility]* Diagnosis Second trimester (HHS-HCC) state, incidental 13 weeks gestation of (HHS-HCC) Thyroid disease Unspecified disorder of thyroid Multigravida of advanced maternal age in second trimester ([facility]) Gestational diabetes mellitus (GDM), antepartum, gestational diabetes method of control unspecified ([facility]-HCC) Elevated glucose tolerance test Impaired glucose tolerance test [facility]* Diagnosis Gestational diabetes mellitus (GDM), antepartum, gestational diabetes method of control unspecified- Primary [facility]* Diagnosis Second trimester ([facility]-HCC) state, incidental 16 weeks gestation of ([facility]-HCC) Screening, , for anatomic survey ([facility]) Encounter for anatomic survey Vaginal discharge Leukorrhea, not specified as infective Sinus headache Headache documented in this encounter [facility]* Diagnosis Insulin controlled gestational diabetes mellitus (GDM) in second trimester- Primary [facility]* Diagnosis 19 weeks gestation of ([facility]-HCC) Second trimester ([facility]) state, incidental Thyroid disease Unspecified disorder of thyroid Multigravida of advanced maternal age in second trimester ([facility]) Gestational diabetes mellitus (GDM), antepartum, gestational diabetes method of control unspecified ([facility]) documented in this encounter [facility]* Diagnosis Gestational diabetes mellitus (GDM) in second trimester controlled on oral hypoglycemic drug- Primary documented [facility]* Diagnosis Antiphospholipid antibody positive- Primary Other and unspecified nonspecific immunological findings Iron deficiency anemia secondary to blood loss (chronic) Vitamin D deficiency Unspecified vitamin D deficiency Primary hypercoagulable state (HCC) Primary hypercoagulable state [facility] Diagnosis Gestational diabetes mellitus (GDM) in second trimester controlled on oral hypoglycemic drug- Primary documented [facility] encounter [facility]* Diagnosis Multigravida of advanced maternal age in second trimester- Primary Antiphospholipid syndrome complicating , antepartum Gestational diabetes mellitus (GDM) in second trimester controlled on oral hypoglycemic drug Insulin controlled gestational diabetes mellitus (GDM) in second trimester AMA (advanced maternal age) multigravida 35+, second trimester Hypothyroidism, unspecified type documented [facility] encounter [facility]* Diagnosis 22 weeks gestation of - Primary Antiphospholipid syndrome complicating , antepartum History of stroke Transient ischemic attack (TIA), and cerebral infarction without residual deficits History of loss in prior , currently in second trimester Gestational diabetes mellitus (GDM) in second trimester controlled on oral hypoglycemic drug Multigravida of advanced maternal age in second trimester Hypothyroidism affecting in second trimester Family history of autism Hyponatremia Hyposmolality and/or hyponatremia [facility] Diagnosis Multigravida of advanced maternal age in second trimester- Primary Antiphospholipid syndrome complicating , antepartum Gestational diabetes mellitus (GDM) in second trimester controlled on oral hypoglycemic drug AMA (advanced maternal age) multigravida 35+, second trimester Hypothyroidism, unspecified type History of stroke Transient ischemic attack (TIA), and cerebral infarction without residual deficits History of loss in prior , currently in second trimester Hypothyroidism affecting in second trimester Family history of autism Hyponatremia Hyposmolality and/or hyponatremia [facility]* Diagnosis Second trimester (HHS-HCC) state, incidental 23 weeks gestation of ([facility]) Thyroid disease Unspecified disorder of thyroid Gestational diabetes mellitus (GDM), antepartum, gestational diabetes method of control unspecified ([facility]) Multigravida of advanced maternal age in second trimester ([facility]) H/O loss Lightheaded Dizziness and giddiness Dizziness Dizziness and giddiness documented in this encounter [facility]* Diagnosis Antiphospholipid syndrome- Primary Primary hypercoagulable state [facility]* Diagnosis Gestational diabetes mellitus (GDM) in second trimester controlled on oral hypoglycemic drug- Primary Antiphospholipid syndrome Primary hypercoagulable state Other specified hypothyroidism Antiphospholipid syndrome complicating , antepartum documented [facility]* Diagnosis Second trimester (HHS-HCC) state, incidental 25 weeks gestation of ([facility]) Gestational diabetes mellitus (GDM), antepartum, gestational diabetes method of control unspecified ([facility]) Anticoagulant long-term use Encounter for long-term (current) use of anticoagulants Antiphospholipid antibody positive Other and unspecified nonspecific immunological findings Antiphospholipid antibody syndrome ([facility]HCC) Primary hypercoagulable state documented in this encounter [facility]* Diagnosis 27 weeks gestation of - Primary Multigravida of advanced maternal age in third trimester Gestational diabetes mellitus (GDM) in second trimester controlled on oral hypoglycemic drug Antiphospholipid syndrome complicating , antepartum Antiphospholipid syndrome Primary hypercoagulable state [facility] Diagnosis Third trimester (HHS-HCC) state, incidental 28 weeks gestation of (HHS-HCC) Anemia complicating childbirth (HHS-HCC) Anticoagulant long-term use Encounter for long-term (current) use of anticoagulants Antiphospholipid antibody positive Other and unspecified nonspecific immunological findings Blood pressure elevated without history of HTN Coagulation defect, unspecified (HHS-HCC) [facility] Narrative No data available for this section [facility] [place] [facility] Discharge instructions No data available for this section [facility] HospitalInstructionsNot on filedocumented in this encounter [facility] [...] on filedocumented in this encounter [facility] SystemInstructions* Attachments The following attachments cannot be sent through Care Everywhere. * Preeclampsia ([place]guillan) documented in this encounterProMedica Health SystemInstructionsNot on file documented in this encounterProMedica Health SystemInstructionsNot on file documented in this encounterProMedica Health SystemInstructionsNot on file documented in this encounterProMedica Health SystemInstructionsNot on file documented in this encounterProMedica Health SystemInstructions* Attachments The following attachments cannot be sent through Care Everywhere. * Preeclampsia ([place]guillan) documented in this encounterProMedica Health SystemInstructionsNot on file documented in this encounterProMedica Health SystemProgress note No data available for this section [facility] HospitalReason for referral (narrative) , pt reported hx of nasal polyps and deviated septum but never had surgery done Referred by: Lourdes Urrutia [facility] Primary Care Summary Purpose Family History [...] Directiv es Records FoundNo Advanced Directives Records Found Medications [...] section and content) DATE CREATED AUTHOR 10/22/2017 [facility] DATE CREATED AUTHOR AUTHOR'S ORGANIZ ATION 11/14/2017 [facility] DATE CREATED AUTHOR AUTHOR'S ORGANIZ ATION 06/18/2018 [facility] DATE CREATED AUTHOR AUTHOR'S [...] CREATED AUTHOR AUTHOR'S ORGANIZ ATION 12/10/2023 [facility] DATE CREATED AUTHOR AUTHOR'S ORGANIZ ATION 01/27/2024 [facility] DATE CREATED AUTHOR AUTHOR'S ORGANIZ ATION 02/24/2024 [facility] DATE CREATED AUTHOR AUTHOR'S ORGANIZ ATION 02/26/2024 [facility] DATE CREATED AUTHOR AUTHOR'S ORGANIZ ATION 02/28/2024 [facility] DATE CREATED AUTHOR AUTHOR'S ORGANIZ ATION 03/02/2024 [facility] DATE CREATED AUTHOR AUTHOR'S ORGANIZ ATION 03/03/2024 [facility] DATE CREATED AUTHOR AUTHOR'S ORGANIZ ATION 05/15/2024 [email or web address] DATE CREATED AUTHOR AUTHOR'S ORGANIZ ATION 05/17/2024 [facility] DATE CREATED AUTHOR AUTHOR'S ORGANIZ ATION 05/18/2024 [facility] DATE CREATED AUTHOR AUTHOR'S ORGANIZ ATION 05/19/2024 [facility] DATE CREATED AUTHOR AUTHOR'S ORGANIZ ATION 06/11/2024 [facility] DATE CREATED AUTHOR AUTHOR'S ORGANIZ ATION 06/17/2024 [facility] DATE CREATED AUTHOR AUTHOR'S ORGANIZ ATION 07/09/2024 [facility] DATE CREATED AUTHOR AUTHOR'S ORGANIZ ATION 07/12/2024 [facility] DATE CREATED AUTHOR AUTHOR'S ORGANIZ ATION 07/15/2024 [facility] DATE CREATED AUTHOR AUTHOR'S ORGANIZ ATION 08/24/2024 [facility] DATE CREATED AUTHOR AUTHOR'S ORGANIZ ATION 08/26/2024 [facility] DATE CREATED AUTHOR AUTHOR'S ORGANIZ ATION 09/01/2024 [facility] DATE CREATED AUTHOR AUTHOR'S ORGANIZ ATION 09/08/2024 [facility] DATE CREATED AUTHOR AUTHOR'S ORGANIZ ATION 09/11/2024 [facility] DATE CREATED AUTHOR AUTHOR'S ORGANIZ ATION 12/09/2024 [facility] DATE CREATED AUTHOR AUTHOR'S ORGANIZ ATION 01/18/2025 [facility] DATE CREATED AUTHOR AUTHOR'S ORGANIZ ATION 02/05/2025 [facility] DATE CREATED AUTHOR AUTHOR'S ORGANIZ ATION 02/07/2025 [facility] DATE CREATED AUTHOR AUTHOR'S ORGANIZ ATION 02/07/2025 [facility] DATE CREATED AUTHOR AUTHOR'S ORGANIZ ATION 02/08/2025 [facility] DATE CREATED AUTHOR AUTHOR'S ORGANIZ ATION 02/10/2025 [facility] [employer] Comments (unrecognize d section and content) In the event this informatio n is protected by the Federal Confidentiality of Alcohol and Drug Abuse Patient Records regulations: The Federal rules restrict any use of the information to criminally investigate or prosecute any alcohol or drug abuse patient.[facility] CenterIn the event this information is protected by the Federal Confidentiality of Alcohol and Drug Abuse Patient Records regulations: The Federal rules restrict any use of the information to criminally investigate or prosecute any alcohol or drug abuse patient.[facility] CenterIn the event this information is protected by the Federal Confidentiality of Alcohol and Drug Abuse Patient Records regulations: The Federal rules restrict any use of the information to criminally investigate or prosecute any alcohol or drug abuse patient.[facility] CenterIn the event this information is protected by the Federal Confidentiality of Alcohol and Drug Abuse Patient Records regulations: The Federal rules restrict any use of the information to criminally investigate or prosecute any alcohol or drug abuse patient.[facility] CenterIn the event this information is protected by the Federal Confidentiality of Alcohol and Drug Abuse Patient Records regulations: The Federal rules restrict any use of the information to criminally investigate or prosecute any alcohol or drug abuse patient.[facility] CenterIn the event this information is protected by the Federal Confidentiality of Alcohol and Drug Abuse Patient Records regulations: The Federal rules restrict any use of the information to criminally investigate or prosecute any alcohol or drug abuse patient.[facility] CenterIn the event this information is protected by the Federal Confidentiality of Alcohol and Drug Abuse Patient Records regulations: The Federal rules restrict any use of the information to criminally investigate or prosecute any alcohol or drug abuse patient.[facility] CenterIn the event this information is protected by the Federal Confidentiality of Alcohol and Drug Abuse Patient Records regulations: The Federal rules restrict any use of the information to criminally investigate or prosecute any alcohol or drug abuse patient.[facility] CenterIn the event this information is protected by the Federal Confidentiality of Alcohol and Drug Abuse Patient Records regulations: The Federal rules restrict any use of the information to criminally investigate or prosecute any alcohol or drug abuse patient.[facility] CenterIn the event this information is protected by the Federal Confidentiality of Alcohol and Drug Abuse Patient Records regulations: The Federal rules restrict any use of the information to criminally investigate or prosecute any alcohol or drug abuse patient.[facility] CenterIn the event this information is protected by the Federal Confidentiality of Alcohol and Drug Abuse Patient Records regulations: The Federal rules restrict any use of the information to criminally investigate or prosecute any alcohol or drug abuse patient.[facility] CenterIn the event this information is protected by the Federal Confidentiality of Alcohol and Drug Abuse Patient Records regulations: The Federal rules restrict any use of the information to criminally investigate or prosecute any alcohol or drug abuse patient.[facility] CenterIn the event this information is protected by the Federal Confidentiality of Alcohol and Drug Abuse Patient Records regulations: The Federal rules restrict any use of the information to criminally investigate or prosecute any alcohol or drug abuse patient.[facility] CenterIn the event this information is protected by the Federal Confidentiality of Alcohol and Drug Abuse Patient Records regulations: The Federal rules restrict any use of the information to criminally investigate or prosecute any alcohol or drug abuse patient.[facility] CenterIn the event this information is protected by the Federal Confidentiality of Alcohol and Drug Abuse Patient Records regulations: The Federal rules restrict any use of the information to criminally investigate or prosecute any alcohol or drug abuse patient.[facility] CenterIn the event this information is protected by the Federal Confidentiality of Alcohol and Drug Abuse Patient Records regulations: The Federal rules restrict any use of the information to criminally investigate or prosecute any alcohol or drug abuse patient.[facility] CenterIn the event this information is protected by the Federal Confidentiality of Alcohol and Drug Abuse Patient Records regulations: The Federal rules restrict any use of the information to criminally investigate or prosecute any alcohol or drug abuse patient.[facility] CenterIn the event this information is protected by the Federal Confidentiality of Alcohol and Drug Abuse Patient Records regulations: The Federal rules restrict any use of the information to criminally investigate or prosecute any alcohol or drug abuse patient.[facility] CenterIn the event this information is protected by the Federal Confidentiality of Alcohol and Drug Abuse Patient Records regulations: The Federal rules restrict any use of the information to criminally investigate or prosecute any alcohol or drug abuse patient.[facility] CenterIn the event this information is protected by the Federal Confidentiality of Alcohol and Drug Abuse Patient Records regulations: The Federal rules restrict any use of the information to criminally investigate or prosecute any alcohol or drug abuse patient.[facility] CenterIn the event this information is protected by the Federal Confidentiality of Alcohol and Drug Abuse Patient Records regulations: The Federal rules restrict any use of the information to criminally investigate or prosecute any alcohol or drug abuse patient.[facility] CenterIn the event this information is protected by the Federal Confidentiality of Alcohol and Drug Abuse Patient Records regulations: The Federal rules restrict any use of the information to criminally investigate or prosecute any alcohol or drug abuse patient.[facility] CenterIn the event this information is protected by the Federal Confidentiality of Alcohol and Drug Abuse Patient Records regulations: The Federal rules restrict any use of the information to criminally investigate or prosecute any alcohol or drug abuse patient.[facility] CenterIn the event this information is protected by the Federal Confidentiality of Alcohol and Drug Abuse Patient Records regulations: The Federal rules restrict any use of the information to criminally investigate or prosecute any alcohol or drug abuse patient.[facility] CenterIn the event this information is protected by the Federal Confidentiality of Alcohol and Drug Abuse Patient Records regulations: The Federal rules restrict any use of the information to criminally investigate or prosecute any alcohol or drug abuse patient.[facility] CenterIn the event this information is protected by the Federal Confidentiality of Alcohol and Drug Abuse Patient Records regulations: The Federal rules restrict any use of the information to criminally investigate or prosecute any alcohol or drug abuse patient.[facility] CenterIn the event this information is protected by the Federal Confidentiality of Alcohol and Drug Abuse Patient Records regulations: The Federal rules restrict any use of the information to criminally investigate or prosecute any alcohol or drug abuse patient.[facility] CenterIn the event this information is protected by the Federal Confidentiality of Alcohol and Drug Abuse Patient Records regulations: The Federal rules restrict any use of the information to criminally investigate or prosecute any alcohol or drug abuse patient.[facility] CenterIn the event this information is protected by the Federal Confidentiality of Alcohol and Drug Abuse Patient Records regulations: The Federal rules restrict any use of the information to criminally investigate or prosecute any alcohol or drug abuse patient.[facility] CenterIn the event this information is protected by the Federal Confidentiality of Alcohol and Drug Abuse Patient Records regulations: The Federal rules restrict any use of the information to criminally investigate or prosecute any alcohol or drug abuse patient.[facility] CenterIn the event this information is protected by the Federal Confidentiality of Alcohol and Drug Abuse Patient Records regulations: The Federal rules restrict any use of the information to criminally investigate or prosecute any alcohol or drug abuse patient.[facility] CenterIn the event this information is protected by the Federal Confidentiality of Alcohol and Drug Abuse Patient Records regulations: The Federal rules restrict any use of the information to criminally investigate or prosecute any alcohol or drug abuse patient.[facility] CenterIn the event this information is protected by the Federal Confidentiality of Alcohol and Drug Abuse Patient Records regulations: The Federal rules restrict any use of the information to criminally investigate or prosecute any alcohol or drug abuse patient.[facility] CenterIn the event this information is protected by the Federal Confidentiality of Alcohol and Drug Abuse Patient Records regulations: The Federal rules restrict any use of the information to criminally investigate or prosecute any alcohol or drug abuse patient.[facility] CenterIn the event this information is protected by the Federal Confidentiality of Alcohol and Drug Abuse Patient Records regulations: The Federal rules restrict any use of the information to criminally investigate or prosecute any alcohol or drug abuse patient.[facility] CenterIn the event this information is protected by the Federal Confidentiality of Alcohol and Drug Abuse Patient Records regulations: The Federal rules restrict any use of the information to criminally investigate or prosecute any alcohol or drug abuse patient.[facility] CenterIn the event this information is protected by the Federal Confidentiality of Alcohol and Drug Abuse Patient Records regulations: The Federal rules restrict any use of the information to criminally investigate or prosecute any alcohol or drug abuse patient.[facility] CenterIn the event this information is protected by the Federal Confidentiality of Alcohol and Drug Abuse Patient Records regulations: The Federal rules restrict any use of the information to criminally investigate or prosecute any alcohol or drug abuse patient.[facility] CenterIn the event this information is protected by the Federal Confidentiality of Alcohol and Drug Abuse Patient Records regulations: The Federal rules restrict any use of the information to criminally investigate or prosecute any alcohol or drug abuse patient.[facility] CenterIn the event this information is protected by the Federal Confidentiality of Alcohol and Drug Abuse Patient Records regulations: The Federal rules restrict any use of the information to criminally investigate or prosecute any alcohol or drug abuse patient.[facility] CenterIn the event this information is protected by the Federal Confidentiality of Alcohol and Drug Abuse Patient Records regulations: The Federal rules restrict any use of the information to criminally investigate or prosecute any alcohol or drug abuse patient.[facility] CenterIn the event this information is protected by the Federal Confidentiality of Alcohol and Drug Abuse Patient Records regulations: The Federal rules restrict any use of the information to criminally investigate or prosecute any alcohol or drug abuse patient.[facility] CenterIn the event this information is protected by the Federal Confidentiality of Alcohol and Drug Abuse Patient Records regulations: The Federal rules restrict any use of the information to criminally investigate or prosecute any alcohol or drug abuse patient.[facility] CenterIn the event this information is protected by the Federal Confidentiality of Alcohol and Drug Abuse Patient Records regulations: The Federal rules restrict any use of the information to criminally investigate or prosecute any alcohol or drug abuse patient.[facility] CenterIn the event this information is protected by the Federal Confidentiality of Alcohol and Drug Abuse Patient Records regulations: The Federal rules restrict any use of the information to criminally investigate or prosecute any alcohol or drug abuse patient.[facility] CenterIn the event this information is protected by the Federal Confidentiality of Alcohol and Drug Abuse Patient Records regulations: The Federal rules restrict any use of the information to criminally investigate or prosecute any alcohol or drug abuse patient.[facility] CenterIn the event this information is protected by the Federal Confidentiality of Alcohol and Drug Abuse Patient Records regulations: The Federal rules restrict any use of the information to criminally investigate or prosecute any alcohol or drug abuse patient.[facility] CenterIn the event this information is protected by the Federal Confidentiality of Alcohol and Drug Abuse Patient Records regulations: The Federal rules restrict any use of the information to criminally investigate or prosecute any alcohol or drug abuse patient.[facility] CenterIn the event this information is protected by the Federal Confidentiality of Alcohol and Drug Abuse Patient Records regulations: The Federal rules restrict any use of the information to criminally investigate or prosecute any alcohol or drug abuse patient.[facility] CenterIn the event this information is protected by the Federal Confidentiality of Alcohol and Drug Abuse Patient Records regulations: The Federal rules restrict any use of the information to criminally investigate or prosecute any alcohol or drug abuse patient.[facility] CenterIn the event this information is protected by the Federal Confidentiality of Alcohol and Drug Abuse Patient Records regulations: The Federal rules restrict any use of the information to criminally investigate or prosecute any alcohol or drug abuse patient.[facility] CenterIn the event this information is protected by the Federal Confidentiality of Alcohol and Drug Abuse Patient Records regulations: The Federal rules restrict any use of the information to criminally investigate or prosecute any alcohol or drug abuse patient.[facility] CenterIn the event this information is protected by the Federal Confidentiality of Alcohol and Drug Abuse Patient Records regulations: The Federal rules restrict any use of the information to criminally investigate or prosecute any alcohol or drug abuse patient.[facility] CenterIn the event this information is protected by the Federal Confidentiality of Alcohol and Drug Abuse Patient Records regulations: The Federal rules restrict any use of the information to criminally investigate or prosecute any alcohol or drug abuse patient.[facility] CenterIn the event this information is protected by the Federal Confidentiality of Alcohol and Drug Abuse Patient Records regulations: The Federal rules restrict any use of the information to criminally investigate or prosecute any alcohol or drug abuse patient.[facility] Care Teams (unrecognized sec tion and content) Supervisor Area Relationship Specialty Start Date End Date Humaira Gaviria MD [address] [facility] [place] [address] PCP - General Internal Medicine 07/05/18 Jonny Wilcox MD [address] [facility] [place] [address] Primary Staff Physician Cardiology 07/16/18 Supervisor Area Relationship Specialty Start Date End Date Humaira Gaviria MD [address] [facility] [place] [address] PCP - General Internal Medicine 07/05/18 Jonny Wilcox MD [address] [place] [address] Primary Staff Physician Cardiology 07/16/18 Supervisor Area Relationship Specialty Start Date End Date Humaira Gaviria MD [address] [facility] [place] [place] [address] PCP - General Internal Medicine 07/05/18 Jonny Wilcox MD [address] [place] [address] Primary Staff Physician Cardiology 07/16/18 Supervisor Area Relationship Specialty Start Date End Date Humaira Gaviria MD [address] [facility] [place] [address] PCP - General Internal Medicine 07/05/18 Jonny Wilcox MD [address] [facility] [place] [address] Primary Staff Physician Cardiology 07/16/18 Supervisor Area Relationship Specialty Start Date End Date Humaira Gaviria MD [address] [facility] [place] [place] [address] PCP - General Internal Medicine 07/05/18 Jonny Wilcox MD [address] [place] [address] Primary Staff Physician Cardiology 07/16/18 [place] [address] [place] [address] Physician Hematology/Oncology 09/14/21 Davida Restrepo, RN [address] [place] [address] Specialty Strategy Director Hematology/Oncology 09/14/21 Supervisor Area Relationship Specialty Start Date End Date Penelope Casas [address] [place] [address] PCP - General Family Medicine 10/04/20 Supervisor Area Relationship Specialty Start Date End Date Humaira Gaviria MD [address] [place] [address] PCP - General Internal Medicine 07/05/18 Jonny Wilcox MD [address] [place] [address] Primary Staff Physician Cardiology 07/16/18 [place] [address] [place] [address] Physician Hematology/Oncology 09/14/21 Davida Restrepo, RN [address] [place] [address] Specialty Strategy Director Hematology/Oncology 09/14/21 Supervisor Area Relationship Specialty Start Date End Date Penelope Casas DO [address] [place] [address] PCP - General Family Medicine 01/30/22 Jonny Wilcox MD [address] [place] [address] Primary Staff Physician Cardiology 07/16/18 [place] [address] [place] [address] Physician Hematology/Oncology 09/14/21 Davida Restrepo, RN [address] [place] [address] Specialty Strategy Director Hematology/Oncology 09/14/21 Supervisor Area Relationship Specialty Start Date End Date Penelope Casas, DO [address] [place] [address] PCP - General Family Medicine 01/30/22 Jonny Wilcox MD [address] [place] [address] Primary Staff Physician Cardiology 07/16/18 [place] [address] [place] [address] Physician Hematology/Oncology 09/14/21 Davida Restrepo RN [address] [place] [address] Specialty Strategy Director Hematology/Oncology 09/14/21 Supervisor Area Relationship Specialty Start Date End Date Penelope Casas, DO [address] [place] [address] PCP - General Family Medicine 01/30/22 Jonny Wilcox MD [address] [place] [address] Primary Staff Physician Cardiology 07/16/18 [place] [address] [place] [address] Physician Hematology/Oncology 09/14/21 Davida Restrepo, RN [address] [place] [address] Specialty Strategy Director Hematology/Oncology 09/14/21 Supervisor Area Relationship Specialty Start Date End Date Penelope Casas DO [address] [place] [address] PCP - General Family Medicine 01/30/22 Jonny Wilcox MD [address] [place] [address] Primary Staff Physician Cardiology 07/16/18 [place] [address] [place] [address] Physician Hematology/Oncology 09/14/21 Davida Restrepo, RN [address] [place] [address] Specialty Strategy Director Hematology/Oncology 09/14/21 Supervisor Area Relationship Specialty Start Date End Date Penelope Casas DO [address] [place] [address] PCP - General Family Medicine 01/30/22 Jonny Wilcox MD [address] [place] [address] Primary Staff Physician Cardiology 07/16/18 [place] [address] [place] [address] Physician Hematology/Oncology 09/14/21 Davida Restrepo, RN [address] [place] [address] Specialty Strategy Director Hematology/Oncology 09/14/21 Supervisor Area Relationship Specialty Start Date End Date Penelope Casas DO [address] [place] [address] PCP - General Family Medicine 01/30/22 Jonny Wilcox MD [address] [place] [address] Primary Staff Physician Cardiology 07/16/18 [place] [address] [place] [address] Physician Hematology/Oncology 09/14/21 Davida Restrepo, RN [address] [place] [address] Specialty Strategy Director Hematology/Oncology 09/14/21 Supervisor Area Relationship Specialty Start Date End Date Penelope Casas DO [address] [place] [address] PCP - General Family Medicine 01/30/22 Jonny Wilcox MD [address] [place] [address] Primary Staff Physician Cardiology 07/16/18 [place] [address] [place] [address] Physician Hematology/Oncology 09/14/21 Davida Restrepo, RN [address] [place] [address] Specialty Strategy Director Hematology/Oncology 09/14/21 Supervisor Area Relationship Specialty Start Date End Date Penelope Casas DO [address] [place] [address] PCP - General Family Medicine 01/30/22 Jonny Wilcox MD [address] [place] [address] Primary Staff Physician Cardiology 07/16/18 [place] [address] [place] [address] Physician Hematology/Oncology 09/14/21 Davida Restrepo, RN [address] [place] [address] Specialty Strategy Director Hematology/Oncology 09/14/21 Supervisor Area Relationship Specialty Start Date End Date Penelope Casas DO [address] [place] [address] PCP - General Family Medicine 01/30/22 Jonny Wilcox MD [address] [place] [address] Primary Staff Physician Cardiology 07/16/18 [place] [address] [place] [address] Physician Hematology/Oncology 09/14/21 Davida Restrepo RN [address] [place] [address] Specialty Strategy Director Hematology/Oncology 09/14/21 Supervisor Area Relationship Specialty Start Date End Date Penelope Casas DO [address] [facility] [place] [address] PCP - General Family Medicine 01/30/22 Jonny Wilcox MD [address] [place] [address] Primary Staff Physician Cardiology 07/16/18 [place] [address] [place] [address] Physician Hematology/Oncology 09/14/21 Davida Restrepo, RN [address] [place] [address] Specialty Strategy Director Hematology/Oncology 09/14/21 Supervisor Area Relationship Specialty Start Date End Date Penelope Casas DO [address] [place] [address] PCP - General Family Medicine 01/30/22 Jonny Wilcox MD [address] [place] [address] Primary Staff Physician Cardiology 07/16/18 [place] [address] [place] [address] Physician Hematology/Oncology 09/14/21 Davida Restrepo, RN [address] [place] [address] Specialty Strategy Director Hematology/Oncology 09/14/21 Supervisor Area Relationship Specialty Start Date End Date Penelope Casas DO [address] [place] [address] PCP - General Family Medicine 01/30/22 Jonny Wilcox MD [address] [place] [address] Primary Staff Physician Cardiology 07/16/18 [place] [address] [place] [address] Physician Hematology/Oncology 09/14/21 Davida Restrepo, RN [address] [place] [address] Specialty Strategy Director Hematology/Oncology 09/14/21 Supervisor Area Relationship Specialty Start Date End Date Penelope Casas DO [address] [place] [address] PCP - General Family Medicine 01/30/22 Jonny Wilcox MD [address] [facility] [place] [address] Primary Staff Physician Cardiology 07/16/18 [place] [address] [place] [address] Physician Hematology/Oncology 09/14/21 Davida Restrepo RN [address] [place] [address] Specialty Strategy Director Hematology/Oncology 09/14/21 Supervisor Area Relationship Specialty Start Date End Date Penelope Casas DO [address] [place] [address] PCP - General Family Medicine 01/30/22 Jonny Wilcox MD [address] [place] [address] Primary Staff Physician Cardiology 07/16/18 [place] [address] [place] [address] Physician Hematology/Oncology 09/14/21 Davida Restrepo RN [address] [place] [address] Specialty Strategy Director Hematology/Oncology 09/14/21 Supervisor Area Relationship Specialty Start Date End Date Penelope Casas DO [address] [place] [address] PCP - General Family Medicine 01/30/22 Jonny Wilcox MD [address] [place] [address] Primary Staff Physician Cardiology 07/16/18 [place] [address] [place] [address] Physician Hematology/Oncology 09/14/21 Davida Restrepo, RN [address] [facility] [place] [address] Specialty Strategy Director Hematology/Oncology 09/14/21 Supervisor Area Relationship Specialty Start Date End Date Penelope Casas DO [address] [place] [address] PCP - General Family Medicine 01/30/22 Jonny Wilcox MD [address] [place] [address] Primary Staff Physician Cardiology 07/16/18 [place] [address] [place] [address] Physician Hematology/Oncology 09/14/21 Davida Restrepo, RN [address] [facility] [place] [address] Specialty Strategy Director Hematology/Oncology 09/14/21 Supervisor Area Relationship Specialty Start Date End Date Penelope Casas DO [address] [place] [address] PCP - General Family Medicine 01/30/22 Jonny Wilcox MD [address] [place] [address] Primary Staff Physician Cardiology 07/16/18 [place] [address] [place] [address] Physician Hematology/Oncology 09/14/21 Davida Restrepo, RN [address] [place], [place] [address] Specialty Strategy Director Hematology/Oncology 09/14/21 Supervisor Area Relationship Specialty Start Date End Date Penelope Casas DO [address] [facility] [place] [address] PCP - General Family Medicine 01/30/22 Jonny Wilcox MD [address] [place] [address] Primary Staff Physician Cardiology 07/16/18 [place] [address] [place] [address] Physician Hematology/Oncology 09/14/21 Davida Restrepo RN [address] [place] [address] Specialty Strategy Director Hematology/Oncology 09/14/21 Supervisor Area Relationship Specialty Start Date End Date Penelope Casas DO [address] [facility] [place] [address] PCP - General Family Medicine 01/30/22 Jonny Wilcox MD [address] [place] [address] Primary Staff Physician Cardiology 07/16/18 [place] [address] [place] [address] Physician Hematology/Oncology 09/14/21 Davida Restrepo RN [address] [place] [address] Specialty Strategy Director Hematology/Oncology 09/14/21 Supervisor Area Relationship Specialty Start Date End Date Penelope Casas DO [address] [place] [address] PCP - General Family Medicine 01/30/22 Jonny Wilcox MD [address] [facility] [place] [address] Primary Staff Physician Cardiology 07/16/18 [place] [address] [place] [address] Physician Hematology/Oncology 09/14/21 Davida Restrepo, RN [address] [place], [place] [address] Specialty Strategy Director Hematology/Oncology 09/14/21 Supervisor Area Relationship Specialty Start Date End Date Penelope Casas DO [address] [facility] [place] [address] PCP - General Family Medicine 01/30/22 Jonny Wilcox MD [address] [place] [address] Primary Staff Physician Cardiology 07/16/18 [place] [address] [place] [address] Physician Hematology/Oncology 09/14/21 Davida Restrepo, MARSHA [address] [place] [address] Specialty Strategy Director Hematology/Oncology 09/14/21 Supervisor Area Relationship Specialty Start Date End Date Penelope Casas DO [address] [address] [place] [address] PCP - General Family Medicine 01/30/22 Jonny Wilcox MD [address] [facility] [address] Primary Staff Physician Cardiology 07/16/18 [place] [address] [place] [address] Physician Hematology/Oncology 09/14/21 Davida Restrepo, RN [address] [facility] [place] [address] Specialty Strategy Director Hematology/Oncology 09/14/21 Supervisor Area Relationship Specialty Start Date End Date Penelope Casas DO [address] [facility] [place] [address] PCP - General Family Medicine 01/30/22 Jonny Wilcox MD [address] [facility] [place] [address] Primary Staff Physician Cardiology 07/16/18 [place] [address] [place] [address] Physician Hematology/Oncology 09/14/21 Davida Restrepo, RN [address] [facility] [place] [address] Specialty Strategy Director Hematology/Oncology 09/14/21 Supervisor Area Relationship Specialty Start Date End Date Penelope Casas DO [address] [address] [place] [address] PCP - General Family Medicine 01/30/22 Jonny Wilcox MD [address] [place] [address] Primary Staff Physician Cardiology 07/16/18 [place] [address] [place] [address] Physician Hematology/Oncology 09/14/21 Davida Restrepo, MARSHA [address] [place] [address] Specialty Strategy Director Hematology/Oncology 09/14/21 Supervisor Area Relationship Specialty Start Date End Date Penelope Casas MD [address] [place] [id number] PCP - General Family Medicine 11/07/23 Supervisor Area Relationship Specialty Start Date End Date Penelope Casas MD [address] [place] [id number] PCP - General Family Medicine 11/07/23 Supervisor Area Relationship Specialty Start Date End Date Penelope Casas MD [address] [place] [address] PCP - General Family Medicine 11/07/23 Supervisor Area Relationship Specialty Start Date End Date Penelope Casas MD [address] [place] [address] PCP - General Family Medicine 11/07/23 Supervisor Area Relationship Specialty Start Date End Date Penelope Casas MD [address] [place] [address] PCP - General Family Medicine 11/07/23 Team Status: Inactive Member Role Status Dates Wilton Herrmann DO Attending Provider Active Start : May 10, 2024 End: May 10, 2024 Supervisor Area Relationship Specialty Start Date End Date Penelope Casas DO [address] [place] [address] PCP - General Family Medicine 01/30/22 Jonny Wilcox MD [address] [place], [place] [address] Primary Staff Physician Cardiology 07/16/18 [place] [address] [place] [address] Physician Hematology/Oncology 09/14/21 Davida Restrepo RN [address] [place] [address] Specialty Strategy Director Hematology/Oncology 09/14/21 Supervisor Area Relationship Specialty Start Date End Date Penelope Casas MD [address] [place] [address] PCP - General Family Medicine 11/07/23 Supervisor Area Relationship Specialty Start Date End Date Penelope Casas MD [address] [place] [address] PCP - General Family Medicine 11/07/23 Supervisor Area Relationship Specialty Start Date End Date Penelope Casas MD [address] [address] PCP - General Family Medicine 11/07/23 Supervisor Area Relationship Specialty Start Date End Date Penelope Casas MD [address] [place] [address] PCP - General Family Medicine 11/07/23 Supervisor Area Relationship Specialty Start Date End Date Penelope Casas DO [address] [place] [address] PCP - General Family Medicine 01/30/22 Jonny Wilcox MD [address] [place] [address] Primary Staff Physician Cardiology 07/16/18 [place] [address] [place] [address] Physician Hematology/Oncology 09/14/21 Davida Restrepo, RN [address] [place] [address] Specialty Strategy Director Hematology/Oncology 09/14/21 Supervisor Area Relationship Specialty Start Date End Date Penelope Casas MD [address] [address] PCP - General Family Medicine 11/07/23 Supervisor Area Relationship Specialty Start Date End Date Penelope Casas MD [address] [place] [address] PCP - General Family Medicine 11/07/23 Supervisor Area Relationship Specialty Start Date End Date Penelope Casas DO PCP - General Family Medicine 07/07/19 Supervisor Area Relationship Specialty Start Date End Date Penelope Casas DO PCP - General Family Medicine 07/07/19 Supervisor Area Relationship Specialty Start Date End Date Penelope Casas MD [address] [place] [address] PCP - General Family Medicine 11/07/23 Supervisor Area Relationship Specialty Start Date End Date Penelope Casas DO PCP - General Family Medicine 07/07/19 Supervisor Area Relationship Specialty Start Date End Date Penelope Casas DO PCP - General Family Medicine 07/07/19 Supervisor Area Relationship Specialty Start Date End Date Penelope Casas DO [address] [place] [address] PCP - General Family Medicine 01/30/22 Jonny Wilcox MD [address] [place] [address] Primary Staff Physician Cardiology 07/16/18 [place] [address] [place] [address] Physician Hematology/Oncology 09/14/21 Davida Restrepo, RN [address] [place] [address] Specialty Strategy Director Hematology/Oncology 09/14/21 Supervisor Area Relationship Specialty Start Date End Date Penelope Casas DO PCP - General Family Medicine 07/07/19 Supervisor Area Relationship Specialty Start Date End Date Penelope Casas MD [address] [place] [address] PCP - General Family Medicine 11/07/23 Supervisor Area Relationship Specialty Start Date End Date Penelope Casas MD [address] [facility] [place] [address] PCP - General Family Medicine 11/07/23 Supervisor Area Relationship Specialty Start Date End Date Penelope Casas DO PCP - General Family Medicine 07/07/19 Supervisor Area Relationship Specialty Start Date End Date Penelope Casas DO PCP - General Family Medicine 07/07/19 Supervisor Area Relationship Specialty Start Date End Date Penelope Casas MD [address] [place] [address] PCP - General Family Medicine 11/07/23 Supervisor Area Relationship Specialty Start Date End Date Penelope Casas MD [address] [place] [address] PCP - General Family Medicine 11/07/23 Supervisor Area Relationship Specialty Start Date End Date Penelope Casas DO PCP - General Family Medicine 07/07/19 Supervisor Area Relationship Specialty Start Date End Date Penelope Casas DO [address] [place] [address] PCP - General Family Medicine 01/30/22 Jonny Wilcox MD [address] [place] [address] Primary Staff Physician Cardiology 07/16/18 [place] [address] [place] [address] Physician Hematology/Oncology 09/14/21 Davida Restrepo, RN [address] [place], [place] [id number] Specialty Strategy Director Hematology/Oncology 09/14/21 Supervisor Area Relationship Specialty Start Date End Date Penelope Casas DO PCP - General Family Medicine 07/07/19 Supervisor Area Relationship Specialty Start Date End Date Penelope Casas DO PCP - General Family Medicine 07/07/19 Supervisor Area Relationship Specialty Start Date End Date Penelope Casas DO PCP - General Family Medicine 07/07/19 Supervisor Area Relationship Specialty Start Date End Date Penelope Casas DO PCP - General Family Medicine 07/07/19 Supervisor Area Relationship Specialty Start Date End Date Penelope Casas DO PCP - General Family Medicine 07/07/19 Supervisor Area Relationship Specialty Start Date End Date Penelope Casas MD [facility] [place] [address] PCP - General Family Medicine 11/07/23 Supervisor Area Relationship Specialty Start Date End Date Penelope Casas DO PCP - General Family Medicine 07/07/19 Supervisor Area Relationship Specialty Start Date End Date Penelope Casas DO PCP - General Family Medicine 07/07/19 Supervisor Area Relationship Specialty Start Date End Date Penelope Casas DO PCP - General Family Medicine 07/07/19 Supervisor Area Relationship Specialty Start Date End Date Penelope Casas MD [address] [place] [address] PCP - General Family Medicine 11/07/23 Supervisor Area Relationship Specialty Start Date End Date Penelope Casas DO PCP - General Family Medicine 07/07/19 Reason for Visit (unrecogniz ed section and [...] FERRIC DERISOMALTOSE, 10 MG Kristofer Calix MD [address] [place] [address] [place] [address] [address] [place] [address] Referral ID Status Reason Start Date Expiration Date Visits Re quested Visits Authorized [id number] Closed 04/05/2022 05/09/2022 1 1 Reason Comments Refill Request Specialty Diagnoses / Procedures Referred By Contac t Referred To Contact Diagnoses Iron deficiency anemia secondary to blood loss (chronic) Iron deficiency anemia of Procedures IRON SUCROSE INJECTION PER 1 MG Kristofer Calix MD [facility] [facility] [place] [address] [address] [place] [address] Referral ID Status Reason Start Date Expiration Date V isits Requested Visits Authorized [id number] Authorized 03/27/2022 04/30/2022 99 99 Reason Onset [...] INJECTION PER 1 MG Kristofer Calix MD [address] [place] [address] [place] [address] [address] [place] [address] Referral ID Status Reason Start Date Expiration Date V isits Requested Visits Authorized [id number] Authorized 11/05/2023 05/04/2024 0 3 Reason Onset [...] control unspecified Wilton Herrmann R, DO [address] [facility] [place] [address] Phone: tel: fax: [facility] [address] [facility] [place] [address] Phone: tel: fax: Referral ID Status Reason Start Date Expiration Date Visits Requested Visits Authorized [id number] Pending Review Specialty Services Required 10/13/2024 10/13/2025 1 1 Reason Comments Hypercoagulable state Anemia 8 week follow up Reason Comments MFM consult Reason Comments Routine Visit Reason Comments Follow-up Goals (unrecognized section and content) Goals may [...] BE BASED ON THE PRIMARY CLINICAL RECORDS. [facility] [employer] provides no warranty or guarantee of the accuracy or completeness of information in this document.
--- NOTE | 2025-02-12 19:19 | US_ITS ---
[place] [id number] Patient Name: MADHU RENDON MRN: [id number] date: 1985 Sex: F Assigned Patient Location: [facility] Current Patient Location: Accession/Order Number: [id number] Exam Date: 02/12/2025 19:24 Report Date: 02/12/2025 21:04 At the request of: MYA MASSEY DO Procedure: US OB BPP w non-stress US OB BPP w non-stress 02/12/2025 8:03 PM SIGNS AND SYMPTOMS: ^05/04/2024 ^THIRD TRIMESTER Z34.93 PROTOCOL: Transabdominal sonographic imaging of the gravid uterus COMPARISON: None FINDINGS: Estimated gestational age: 20 weeks and 4 days heart rate: 148 bpm Amniotic fluid index: 11.4 cm with the deepest vertical pocket measuring 4.92 cm. Biophysical profile: breathing movements: 2/2 Gross body movements: 2/2 tone: 2/2 Amniotic fluid volume: 2/2 US/US OB BPP w non-stress IMPRESSION: Biophysical profile: 12/05 Impression dictated by: Baljinder Montano M.D. 02/12/2025 9:04 PM Dictation Location: [facility] Electronically authenticated by: [id number] Y Date: 02/12/2025 21:04
[2025-02-12 20:02] VITALS: BP 118/56; PULSE 79
== END 2025-02-12 20:25 | disposition home or self-care (01) ==
LOC: US 09:57 → FBC 19:14
PROVIDERS: PCP Family Medicine; Visit Provider Obstetrics & Gynecology
DX: O24.419 Gestational diabetes mellitus in pregnancy, unspecified control (principal); Z3A.28 28 weeks gestation of pregnancy
CPT/HCPCS: 76818

== ENCOUNTER 2025-02-17 13:16 | Outpatient (OUT) | payer MEDICAID, SELFPAY ==
--- OUTSIDE RECORDS SUMMARY | 2025-02-06 14:00 | XMS_ITS | Encounter Summary ---
Author Organization [facility] tem Address [id number] [place] [address] Care Team Providers Care Occupational Therapy Aide Name Role Phone Evans Casas DO Primary Care Provider [phone] Reason for Visit * ReasonCommentsFollow-up Encounter Details DateTypeDepartmentCare Team (Latest Contact Info)Hgapdkgefcd84/10/2025 2:00 PM EDTTelemedicine Maternal- Medicine at [facility] [address] [place] [phone] Wilfrid Medina MD [address] [facility], [address] [place] [id number] 27 weeks gestation of (Primary Dx); Multigravida of advanced maternal age in third trimester; Gestational diabetes mellitus (GDM) in second trimester controlled on oral hypoglycemic drug; Antiphospholipid syndrome complicating , antepartum; Antiphospholipid syndrome Social History Tobacco UseTypesPacks/DayYears UsedDateSmoking Tobacco: NeverSmokeless Tobacco: NeverAlcohol UseStandard Drinks/WeekCommentsNot Currently0 (1 standard drink = 0.6 oz pure alcohol)ChildcareAnswerDate PcjiuyxnLnxsgxuftXgkctqg98/31/2019 EmploymentAnswerDate LjxrfmfeFwgagjcjeuYghoipj49/31/2019Hunger ScreeningAnswer Date RecordedWithin the past 12 months we worried whether our food would run out before we got money to buy more.Never True01/01/2025Within the past 12 months the food we bought just didn't last and we didn't have money to get more.Never True01/01/2025Purpose - LifeAnswerDate RecordedPurpose and direction in life Okmjjhw10/11/2021Estimated Date of LlqktaymFdumwenhGth28/05/2026Based on last menstrual period of 07/28/2024Sex and Gender InformationValueDate Recorded Sex Assigned at BirthNot on fileLegal RydHmndzb25/31/2019 12:25 PM EDTGender IdentityNot on fileSexual OrientationNot on filedocumented as of this encounter Patient Instructions * Attachments The following attachments cannot be sent through Care Everywhere. * Preeclampsia (Latvian) documented in this encounter Progress Notes * Wilfrid Medina MD - 02/06/2025 2:00 PM EDT Images from the original note were not included. Video Visit via Real-time Synchronous Audiovisual Provider Location: [facility] AT [address] [address] Patient Location: Other Home Patient Location Senior Ios Software Engineer: None Video Visit Consent Statement: I discussed risks, benefits, and alternatives of a real-time synchronous audiovisual consultation with the patient (and any accompanying persons) including the risks that the patient's personal health details and medical records will be discussed over real-time, synchronous, interactive video/audio/telecommunication technology, the visit will not be recorded withoutthe express consent of both the provider and the patient, and that there are some limitations compared to [id number] evaluations. We elected to proceed. [facility] Maternal- Medicine Office Note Reason For Office Visit: follow up HPI: Sanna Bone is a 39 y.o. at 27w4d with Estimated Date of Delivery: 05/04/25 No chief complaint on file. I have reviewed the pertinent available patient records including but not limited to notes, labs and images She reports normal movements and she denies leakage of fluid, contractions or vaginal bleeding. She denies fever, chills, nausea, vomiting, shortness of breath, chest pain, headache, blurry vision, right upper quadrant pain or edema. The patient was sick last week with upper respiratory symptoms. She is feeling well now Complications: Antiphospholipid antibody syndrome with history of CVA on prophylactic Lovenox. She declines low-dose aspirin. She has been on Plavix for approximately year and a half and had bled heavily on aspirinpreceding this. In the past she also has tried Xarelto and Coumadin Currently on Lovenox 40 mg b.i.d. and she is compliant Sees Neurology Dr. Jorge Osorio on 01/21/[address] Caban has appt in Feb 2025 Overall she has been experiencing low-grade fevers facial redness and sore to touch intermittently since 2023. 07/01/24: Anticardiolipin IgG elevated, SSA and SSB negative, NASEEM neg, negative double-stranded DNA antibodies, anti-Brianna neg, anti-smooth neg, CRP negative, ESR neg GDMA2 - on metformin. HgbA1C 5.9% 10/06/24. She was concerned about allergic reaction with the LantusNPH has been prescribed but she has not started taking it. Advanced maternal age Hypothyroidism on synthroid last TSH 1.25 History of prior losses History of hemorrhage History of a 17 week loss likely due to abruption (in that the patient had heavy vaginal bleeding and multiple hematomas) Family history of autism in both of her daughters. Her one daughter we will be undergoing genetic testing through the field crew chief. There is family history of hypospadias and ? Lowering the malacia in her 2 sons Obesity History of abnormal electrolytes she has a history of hyponatremia and hypokalemia Echo results pending Cell free DNA: low risk, male Carrier screen: negative Horizon (declined expanded carrier screen) Denies smoking, alcohol or other substance use in Denies exposure to cat litter, farming animals, toxic exposure to chemical at work/environment Recent hospitalization: no Review of systems: Review of systems was noncontributory OB Hx: OB History Para Term AB Living 8 4 4 3 4 SAB IAB Ectopic Multiple Live Births 3 4 # Outcome Date GA Lbr Milo/2nd Weight Sex Type Anes PTL Lv 8 Current 7 SAB 05/06/24 14w0d FD 6 Term 05/08/22 39w0d F Vag-Spont N ROOPA 5 Term 01/08/20 39w0d 3.685 kg M Vag-Spont N RO[place]A Comments: 1st degree tear 4 SAB 11/03/18 SAB 3 Term 07/01/14 39w0d 3.204 kg F Vag-Spont N [place]A Comments: MATERNAL HEMORRHAGE 2 SAB 03/29/13 17w0d M SAB Comments: Subchorionic hemorrhage, hematoma, Labor 1 Term 10/31/07 40w0d 3.657 kg M Vag-Spont ROOPA PMH: Past Medical History: Diagnosis Date AMA (advanced maternal age) multigravida 35+ Anemia Antiphospholipid antibody syndrome Cerebral infarction, unspecified ([facility]) 05/16/2019 Hypothyroid Migraine without aura and without status migrainosus, not intractable 09/12/2017 Stroke ([facility]) 2016 PSHIST: Past Surgical History: Procedure Laterality Date BREAST BIOPSY 2014 PELVIC LAPAROSCOPY WISDOM TOOTH EXTRACTION 2006 Allergies: Allergies Allergen Reactions Ciprofloxacin Dizziness Lactose GI Disturbance Diarrhea Lactalbumin Other (See Comments) Other reaction(s): GI Upset Crampy and gassy Milk Containing Products (Dairy) Other (See Comments) Crampy and gassy Meds: Current Outpatient Medications: alcohol swabs pads, medicated, [...] 4 times daily ., Disp: , Rfl: blood-glucose sensor (FREESTYLE SOPHIE 3 PLUS SENSOR) device, Wear for 15 days and change, Disp: 2 each, Rfl: 6 CEPHalexin (KEFLEX) 500 mg capsule, Take 1 capsule (500 mg total) by mouth in the morning and 1 capsule (500 mg total) at noon and 1 capsule (500 mg total) in the evening and 1 capsule (500 mg total)before bedtime., Disp: , Rfl: docusate sodium (COLACE) 100 mg capsule, Take 1 capsule (100 mg total) by mouth in the morning., Disp: , Rfl: enoxaparin (LOVENOX) 40 mg/0.4 mL syringe, Inject 0.4 mL (40 mg total) under the skin Every 12 (twelve) hours., Disp: 24 mL, Rfl: 6 lancets misc, 1 each in the morning and 1 each at noon and 1 each in the evening and 1 each before bedtime. Use to check blood sugar 4 times daily., Disp: , Rfl: levothyroxine (SYNTHROID) 25 MCG tablet, Take 1 tablet (25 mcg total) by mouth in the morning., Disp: , Rfl: metFORMIN XR (GLUCOPHAGE XR) 500 mg 24 hr tablet, Take 1500 mg at night., Disp: 90 tablet, Rfl: 4 pen needle, diabetic (BD ULTRA-FINE ENID PEN NEEDLE) 32 gauge x 5/32 needle, Use a new needle witheach injection ( 1- 5 times per day), Disp: 100 each, Rfl: 3 polyethylene glycol (GLYCOLAX) 17 gram packet, Take 17 g by mouth in the morning., Disp: , Rfl: 19 29 mg iron- 1 mg tablet,chewable, Chew 1 tablet and swallow in the morning., Disp: , Rfl: 6 progesterone (PROMETRIUM) 200 mg capsule, Take 1 capsule (200 mg total) by mouth in the morning., Disp: , Rfl: SH: Social History Socioeconomic History Marital status: Spouse name: Not on file Number of children: Not on file Years of education: Not on file Highest education level: Not on file Occupational History Not on file Tobacco Use Smoking status: Never Smokeless tobacco: Never Vaping Use Vaping status: Never Used Substance and Sexual Activity Alcohol use: Not Currently Drug use: Never Sexual activity: Yes Partners: Male Other Topics Concern Not on file Social History Narrative Not on file Social Drivers of Health Financial Resource Strain: Not on file Food Insecurity: No Food Insecurity (01/01/2025) Hunger Screening Food Insecurity - Worry: Never True Food Insecurity - Inability: Never True Transportation Needs: Not on file Physical Activity: Not on file Stress: Not on file Social Connections: Not on file Interpersonal Safety: Not on file Housing Instability: Not on file Physical Exam: Video visits Gen: Not in acute distress, alert and oriented. Notes/Imaging/Labs reviewed No visits with results within 1 Month(s) from this visit. Latest known visit with results is: Support Visit on 11/19/2024 Component Date Value Ref Range Status External Glucose Fasting Or Rando* 11/19/2024 94 Final Ultrasound findings Pertinent Ultrasound findings are see report Assessment/Plan 39 y.o. @ at 27w4d with Estimated Date of Delivery: 05/04/25 here for consultation regarding: She has been compliant with Lovenox 40 mg b.i.d.. Education given on signs and symptoms of DVT/VTE/CVA. She has scheduled follow-up with the Hematology. We will further discuss later in the 3rd trimester if she would like to be transitioned to heparin around 36 weeks. Last week she had an elevation in her fastings prior to that overall numbers appear to be controlled on metformin 1500 mg extended release. The patient did not start her NPH. Fastings could be elevated in response to the recent viral infection. The patient for now does not want to do insulin and desires to re-evaluate her fastings after she fully recovers from her recent infection. Risks of poorly- controlled diabetes with the discussed. The patient to continue to send blood glucose logs to review at Maternal- Medicine. Glucose goals in : Fasting 65 - 95 One hour postprandial 90 - 140 Discussed monitoring for hypogylcemia, and treatment of hypoglycemia. Discussed her current diet and her awareness of grams of carbohydrate per meal. Encouraged her to be aware of carbohydrate intake and note which foods causing values above goal. Encouraged her on diet modifications. Encouraged patient to check post prandials for all three meals, as we cannot support her to limit risk of hyperglycemia without knowing her BG. Also requested she check fasting BG levels 8-10hrs fromlast eating. Given GDMA2, can monitor patient's BG every 4hrs during latent labor, every 1 hr during active labor with goal BG to be less than 140mg/dl. Can use insulin sliding scale prn hyperglycemia. She also has a an upcoming appointment with the rheumatology. She has recently completed her echocardiogram however I do not have the results. Recommendations: - cont metformin to 1500 mg at night - to continue to send blood glucoses to [facility] to review - continue Lovenox 40 mg b.i.d. - The patient to continue to follow with Hematology and Neurology. Has scheduled follow-up with therheumatology - nephrology referral recommended - serial growth ultrasounds every 4 weeks through OB office - please follow ACOG guidelines regarding RhoGAM in the - weekly NST and DVP at 28 week, increase NST to twice weekly at 32 weeks through primary OB office - delivery 39 weeks or earlier pending clinical course -monitor for signs and symptoms of preeclampsia - give half the dose of long-acting insulin the night before delivery if she ends up being on insulin - discontinue metformin. To have 2 hours oral glucose tolerance test around 6-8 weeks after delivery - monitor her thyroid function every 4-6 weeks and adjust Synthroid with a goal of TSH less than 2.5; go to the prepregnancy dose of Synthroid -maternal echocardiogram results pending Continue to address contraception and planning. Further recommendations to be made by MFM as the progresses Plan reviewed with patient. She vocalized understanding all questions answered. The patient is to continue with routine care in your office Thank you for allowing me to participate in her care. Please contact me if you have any concerns. Wilfrid Medina MD, FACOG (she/hers) Maternal- Medicine [facility] [address] [facility] [address] [place] [address] This document was created with [employer] technology. Though I make every effort to review the dictation as it is transcribed, on occasion the spoken word can be misinterpreted by the technology leading to inappropriate words, phrases, or sentences. This note is addressed to the requesting provider as a consultation for clinical guidance. Specificmedical abbreviations are occasionally used and those are generally approved by the [place]?Board of?Obstetrics and?Gynecology?as well as?Elizabeth???s abbreviations. The above plan of care was based solely on the diagnoses for which a consultation was requested. ?More frequent testing may be indicated based on her other medical/obstetrical conditions. The management of other or medical conditions is beyond the scope of requested consultation and will c ontinue to be followed by the primary graphics editor or primary care provider. Note to patient: The Cures Act makes medical notes like these available to patients inthe interest of transparency. However, be advised this is a medical document. It is intended as peer to peer communication. It is written in medical language and may contain abbreviations or verbiagethat are unfamiliar. It may appear blunt or direct. Medical documents are intended to carry relevant information, facts as evident, and the clinical opinion of the practitioner. documented in this encounter Plan of Treatment DateTypeDepartmentCare Team (Latest Contact Info)Ofljphnuvev52/11/2025 8:00 AM ESTTelemedicine Maternal- Medicine at [place] [address] [place] [address] Sana Palma MD [address] [place] [address] 03/17/2025 8:30 AM ESTTelemedicine [facility] Rhe[facility], A Department of [address] [address] Sam Callahan MD [address] [address] documented as of this encounter Visit Diagnoses Diagnosis 27 weeks gestation of - Primary Multigravida of advanced maternal age in third trimester Gestational diabetes mellitus (GDM) in second trimester controlled on oral hypoglycemic drug Antiphospholipid syndrome complicating , antepartum Antiphospholipid syndrome Primary hypercoagulable state documented in this encounter Care Teams Team MemberRelationshipSpecialtyStart DateEnd Date Evans Casas DO PCP - GeneralFamily Medicine07/07/19documented as of this encounter
--- OUTSIDE RECORDS SUMMARY | 2025-02-09 10:30 | XMS_ITS | Encounter Summary ---
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 Name Role Phone Evans Casas MD Primary Care Provider [phone] Reason for Visit * ReasonCommentsRoutine Visit Encounter Details DateTypeDepartmentCare Team (Latest Contact Info)Pjcrpmnkdsz10/13/2025 10:30 AM EDTRoutine [facility] [address] [place] [phone] Wilton Herrmann DO [address] [place] [phone] Third trimester ([facility]); 28 weeks gestation of ([facility]); Anemia complicating childbirth ([facility]); Anticoagulant long-term use; Antiphospholipid antibody positive; Blood pressure elevated without history of HTN; Coagulation defect, unspecified ([facility]) Social History Tobacco UseTypesPacks/DayYears UsedDateSmoking Tobacco: NeverSmokeless Tobacco: NeverAlcohol UseStandard Drinks/WeekCommentsNever0 (1 standard drink = 0.6 oz pure alcohol)PHQ-2AnswerDate RecordedPatient Health Questionnaire-2 Score0 01/06/2025Estimated Date of RhicsevpQfgiqcsxIcb17/05/2026ased on last menstrual period of 07/28/2024Sex and Gender InformationValueDate RecordedSex Assigned at BirthNot on fileLegal UkkIfpmnx73/15/2023 11:19 PM EDTGender IdentityNot on fileSexual OrientationNot on filedocumented as of this encounter Last Filed Vital Signs Vital SignReadingTime TakenCommentsBlood Ipidcayz120/7610 10:45 AM EDT Pulse--Temperature--Respiratory Rate--Oxygen Saturation--Inhaled Oxygen Concentration--Veoutc28.9 kg (211 lb 6.4 oz)02/09/2025 10:45 AM [...] to check FSBS. Blood Glucose Monitoring Suppl (ASOCS Glucometer) w/Device kit 1 kit, Does not [...] Diagnosis Date Noted 32 weeks gestation of ([facility]) 11/28/2019 Abdominal pain 06/12/2023 Acute bronchitis due to infection 06/12/2023 Acute on chronic vesicular eczema of hands and feet 11/15/2023 Anemia complicating childbirth ([facility]) 01/16/2020 Anticoagulant long-term use 02/22/2020 Antiphospholipid antibody positive 09/10/2017 Antiphospholipid antibody syndrome ([facility]) 07/07/2019 Anxiety 06/12/2023 Blood pressure elevated without history of HTN 11/15/2023 BMI 37.0-37.9, adult 11/15/2023 Cerebral infarction, unspecified ([facility]) 05/16/2019 Cerebrovascular accident (CVA) due to stenosis of middle cerebral artery ([facility]) 02/22/2020 Cervicalgia 02/05/2019 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 ([facility]) 01/08/2020 Coagulation defect, unspecified ([facility]) 02/05/2019 Cold intolerance 11/15/2023 Deficiency of other specified B group vitamins 05/16/2019 Deviated septum 11/15/2023 Dizziness and giddiness 02/05/2019 Dry mouth 11/15/2023 Dysfunction of eustachian tube 06/12/2023 Dyspnea 06/12/2023 Elevated blood pressure reading 11/15/2023 Encounter for supervision of normal , unspecified, first trimester ([facility]) 05/29/2019 Environmental allergies 11/15/2023 Fatigue 12/29/2016 First degree perineal laceration during delivery ([facility]) 01/16/2020 Frequency of micturition 02/19/2019 Genitourinary symptoms 08/19/2021 Gestational diabetes mellitus (GDM), antepartum ([facility]) 01/26/2022 H/O: hypothyroidism 11/15/2023 Hematochezia 06/12/2023 History [...] anemia 01/16/2020 Irregular uterine bleeding 11/15/2023 problem ([facility]) 06/12/2023 Less than 8 weeks gestation of ([facility]) 06/05/2019 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/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 02/05/2019 Migraine without aura and without status migrainosus, not intractable 09/12/2017 Morbid obesity ([facility]) 11/15/2023 Muscle fasciculation 08/19/2021 Nasal polyps 11/15/2023 Non-smoker 11/15/2023 NEETA (obstructive sleep apnea) 11/15/2023 Other acute postprocedural pain 02/03/2019 Other general symptoms and signs 10/28/2019 Other immediate hemorrhage ([facility]) 01/16/2020 Other specified noninflammatory disorders of vagina 02/21/2019 Pain in joint 12/29/2016 Palpitations 08/26/2019 Paresthesia of bilateral legs 11/15/2023 Pelvic and perineal pain 02/01/2019 Personal history of urinary (tract) infections 01/16/2020 Pre-diabetes 11/15/2023 Primary hypercoagulable state ([facility]) 08/01/2022 Pruritus, unspecified 01/02/2020 Psychogenic hyperventilation 06/12/2023 Raised antibody titer 09/25/2017 Right lower quadrant pain 11/15/2023 Right otitis externa 11/15/2023 Salivary gland swelling 11/15/2023 Single live ([facility]) 01/15/2020 Snoring 11/15/2023 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 Exam conducted with a proposal coordinator present. Vitals: Estimated body mass index is 34.12 kg/m?? as calculated from the following: Height as of 11/19/23: 5' 6 . Weight as of this encounter: 211 lb 6.4 oz. BP: 124/76 Patient's last menstrual period was 07/28/2024. ASSESSMENT & PLAN ICD-10-CM 1. Third trimester ([facility]) Z34.93 2. 28 weeks gestation of ([facility]) Z3A.28 CBC and differential POCT urinalysis dipstick [...] givenorders and they were also faxed to [facility] and [facility] Scheduling. Patient to return to clinic in 2 weeks for routine OB appointment. Documented by Rosi Murray LPN on behalf of: Wilton Herrmann DO documented in this encounter Plan of Treatment DateTypeDepartmentCare Team (Latest Contact Info)Jbvabyrvjxn13/27/2025 9:00 AM EDTRoutine [facility] [address] [place] [phone] Wilton Herrmann DO [address] [place] [address] NameTypePriorityAssociated DiagnosesOrder ScheduleCBC and differentialLabRoutine 28 weeks gestation of ([facility]) Ordered: 02/09/2025US OB follow up transabdominal approachImagingRoutine Third trimester ([facility]) 28 weeks gestation of [...] of HTN Coagulation defect, unspecified ([facility]) Expected: 02/09/2025 (Approximate), Expires: 08/10/2025documented as of this encounter Procedures Procedure NamePriorityDate/TimeAssociated DiagnosisCommentsPOCT URINALYSIS BDGDJKBIJeleacj15/13/2025 10:55 AM EDT 28 weeks gestation of ([facility]) documented in this encounter Results * [...] Location / LateralityCollection Method / VolumeCollection TimeReceived FozkVbqfi96/ 10:55 AM EDT Narrative Authorizing ProviderResult TypeResult [...] MemberRelationshipSpecialtyStart DateEnd Date Evans Casas MD [address] [place] [address] PCP - GeneralFamily Medicine11/07/23documented as of this encounter
--- OUTSIDE RECORDS SUMMARY | 2025-02-16 13:45 | XMS_ITS | Encounter Summary ---
[id number] [address] [place] [address] Care Team Providers Care Skirt Clipper Name Role Phone Evans Casas DO Primary Care Provider [phone] Reason for Visit * Consultation (Urgent) - Pending ReviewSpecialtyDiagnoses / ProceduresReferred By ContactReferred To ContactRheumatology Diagnoses 22 weeks gestation of Antiphospholipid syndrome complicating , antepartum Wilfrid Medina MD [address] [address] Phone: tel: fax: Sam Callahan MD MPH [address] [place] [address] Phone: tel: fax: Referral IDStatusReasonStart DateExpiration DateVisits RequestedVisits [id number] Review Specialty Services Required / Encounter Details DateTypeDepartmentCare Team (Latest Contact Info)Ezwegzyzcwx48/20/2025 1:45 PM EDTOffice Visit [facility] Department of [address] [address] Sam Callahan MD MPH [address] [place] [phone] Antiphospholipid syndrome (Primary Dx); Antiphospholipid syndrome complicating , antepartum; History of CVA (cerebrovascular accident); Coordination of complex care; 29 weeks gestation of Social History Tobacco UseTypesPacks/DayYears UsedDateSmoking Tobacco: NeverSmokeless Tobacco: Never Tobacco Cessation:Counseling Given: Not Answered Alcohol UseStandard Drinks/WeekCommentsNot Currently0 (1 standard drink = 0.6 oz pure alcohol)ChildcareAnswerDate EfnojeitIyczykdojKdauapk62/31/2019Employment AnswerDate KwlxcojoJnkoiknpryGzmhzeo13/31/2019Hunger ScreeningAnswerDate RecordedWithin the past 12 months we worried whether our food would run out before we got money to buy more.Never True01/01/2025Within the past 12 months the food we bought just didn't last and we didn't have money to get more.Never True01/01/2025Purpose - LifeAnswerDate RecordedPurpose and direction in life Hcznauu31/11/2021Estimated Date of RipijhgtCxdyemehZhs17/05/2026Based on last menstrual period of 07/28/2024Sex and Gender InformationValueDate Recorded Sex Assigned at BirthNot on fileLegal YoxSamdai75/31/2019 12:25 PM EDTGender IdentityNot on fileSexual OrientationNot on filedocumented as of this encounter Last Filed Vital Signs Vital SignReadingTime TakenCommentsBlood Vnfjaizl610/8010 1:44 PM EDT Msbzp248102/16/2025 1:44 PM EDTTemperature--Respiratory Miuc5012 1:44 PM EDTOxygen Saturation--Inhaled Oxygen Concentration--Goqsof30.8 kg (209 lb) 02/16/2025 1:44 PM EMDHxcnov397.6 cm (5' 6 )02/16/2025 1:44 PM EDTBody Mass Index33.7302/16/2025 1:44 PM EDTdocumented in this encounter Progress Notes * Sam Callahan MD MPH - 02/16/2025 1:45 PM EDT Images from the original note were not included. ADULT RHEUMATOLOGY CLINIC NOTE [address] [phone] Patient Name: Sanna Bone Subjective Reason for [...] following with two outside specialists (Neurology at [facility] and Hematology at [facility]) for management of her APS. The patient [...] health issues unclear exact diagnoses Note from [facility] Provider (Dr. Medina): Recent note from Neurologist: [...] 35+ Antiphospholipid syndrome Hypothyroid St[place] Gestational diabetes mellitus (GDM) in second trimester [...] antibody syndrome Cerebral infarction, unspecified ([facility]) 05/16/2019 Hypothyroid Migraine without aura and without status migrainosus, not intractable 09/12/2017 Stroke [place] 2016 reviewed. Social History Social History Narrative [...] weeks . She is currently following with [facility] for her , neurology through the [email or web address] system, and hematology through [facility]. Based on extensive review of her outside [...] Expiration Date: 02/16/2026 Release to patient via ChemoCentryxhart?: Immediate [1] Complement profile (C3 AND C4) Standing Status: Future Expiration Date: 02/16/2026 Release to patient via ChemoCentryxhart?: Immediate [1] DNA double-stranded (dsDNA) Abs by Rene angel IFA Standing Status: Future Expiration Date: 02/16/2026 Release to patient via ChemoCentryxhart?: Immediate [1] KELLEN Panel Standing Status: Future Expiration Date: 02/16/2026 Release to patient via ChemoCentryxhart?: Immediate [1] Treatment Plan: -if the patient [...] notes to her other specialists including her [facility] physician, neurologist, and hematology provider Health Maintenance: -The patient should continue to follow with their PCP for age and risk factor appropriate cancer screening and immunizations. Follow-up: -4-6 weeks, video visit is OK Sam Callahan MD, MPH [facility] [address] [place], [place] [id number] Total glhl-wv-goik time was 55 minutes with more than [...] Plan of Treatment DateTypeDepartmentCare Team (Latest Contact Info)Ovjdcksponb30/11/2025 8:00 AM ESTTelemedicine Maternal- Medicine at [address] [phone] Sana Palma MD [address] [place] [address] 03/17/2025 8:30 AM ESTTelemedicine [facility], A Department of [address] [address] Sam Callahan MD MPH [address] [place] [phone] NameTypePriorityAssociated DiagnosesOrder ScheduleAntinuclear Ab, HEp-2 Substrate, [...]
--- OUTSIDE RECORDS SUMMARY | 2025-02-17 13:22 | XMS_ITS | Encounter Summary ---
Author Organization [facility] tem Address [facility] [address] [place] [address] Care Team Providers Care Dye Tub Tender Name Role Phone Evans Casas DO Primary Care Provider [phone] Encounter Details DateTypeDepartmentCare Team (Latest Contact Info)Gfgfqumxdyt26/10/2025Travel Social History Tobacco UseTypesPacks/DayYears UsedDateSmoking Tobacco: NeverSmokeless Tobacco: NeverAlcohol UseStandard Drinks/WeekCommentsNot Currently0 (1 standard drink = 0.6 oz pure alcohol)ChildcareAnswerDate UmcpjdxmUfkcfycnvHjpmaek84/31/2019 EmploymentAnswerDate DvxvzcvoWapiddnoueNfitcdk21/31/2019Hunger ScreeningAnswer Date RecordedWithin the past 12 months we worried whether our food would run out before we got money to buy more.Never True01/01/2025Within the past 12 months the food we bought just didn't last and we didn't have money to get more.Never True01/01/2025Purpose - LifeAnswerDate RecordedPurpose and direction in life Hsmoeqz82/11/2021Estimated Date of EphhnetfTcvefkcdTol89/05/2026Based on last menstrual period of 07/28/2024Sex and Gender InformationValueDate Recorded Sex Assigned at BirthNot on fileLegal QfsGtheem74/31/2019 12:25 PM EDTGender IdentityNot on fileSexual OrientationNot on filedocumented as of this encounter Plan of Treatment DateTypeDepartmentCare Team (Latest Contact Info)Kiekplxzvpw75/11/2025 8:00 AM ESTTelemedicine Maternal- [facility] at [facility] [address] [place] [address] Sana Palma MD [address] [place] [address] 03/17/2025 8:30 AM ESTTelemedicine [facility], A Department of [address] [phone] Sam Callahan MD [address] [phone] documented as of this encounter Visit Diagnoses Not on filedocumented in this encounter Care Teams Team MemberRelationshipSpecialtyStart DateEnd Date Evans Casas DO PCP - GeneralFamily Medicine07/07/19documented as of this encounter
--- OUTSIDE RECORDS SUMMARY | 2025-02-17 13:22 | XMS_ITS | Clinical Summary ---
Author Organization Stances tem Address [id number] [address] [place] [address] Care Team Providers Care Power Switchboard Operator Name Role Phone Evans Casas DO Primary Care Provider [phone] Allergies Active AllergyReactionsCriticalityNoted DateCommentsCiprofloxacinDizziness 06/19/2019LactalbuminOther (See Comments)Low05/25/2017 Other reaction(s): GI Upset Crampy and gassy LactoseGI Frwnsiobtan21/14/2018 Diarrhea Milk Containing Products (Dairy)Other (See Comments)Low05/25/2017 Crampy and gassy Medications MedicationSigDispense QuantityRefillsLast FilledStart DateEnd DateStatus 19 29 mg iron- 1 mg tablet,chewable Chew 1 tablet and swallow in the morning.6010/31/2018Active levothyroxine (SYNTHROID) 25 MCG tablet Take 1 tablet (25 mcg total) by mouth in the morning.Active docusate sodium (COLACE) 100 mg capsule Take 1 capsule (100 mg total) by mouth in the morning.Active polyethylene glycol (GLYCOLAX) 17 gram packet Take 17 g by mouth in the morning.Active alcohol swabs pads, medicated Apply 1 each topically in the morning and 1 each at noon and 1 each in the evening and 1 each before bedtime. Clean off finger before testing blood glucose.Active blood-glucose meter (BLOOD GLUCOSE MONITORING) kit 1 each by other route in the morning. Use to check blood sugar 4 times daily . Active blood sugar diagnostic (glucose blood) strip 1 strip by other route as needed for low blood sugar or high blood sugar. Use to check blood sugar 4 times dailyActive lancets misc 1 each in the morning and 1 each at noon and 1 each in the evening and 1 each before bedtime. Use to check blood sugar 4 times daily.Active CEPHalexin (KEFLEX) 500 mg capsule Take 1 capsule (500 mg total) by mouth in the morning and 1 capsule (500 mg total) at noon and 1 capsule (500 mg total) in the evening and 1 capsule (500 mg total) before bedtime.Active progesterone (PROMETRIUM) 200 mg capsule Take 1 capsule (200 mg total) by mouth in the morning.Active azithromycin (ZITHROMAX) 250 mg tablet Take 1 tablet (250 mg total) by mouth in the morning. Take 2 tablets the first day, then 1 tablet daily for 4 days.Active pen needle, diabetic (BD ULTRA-FINE ENID PEN NEEDLE) 32 gauge x 5/32 needle Use a new needle with each injection ( 1- 5 times per day) 100 each 5Active blood-glucose sensor (FREESTYLE SOPHIE 3 PLUS SENSOR) device Indications:Gestational diabetes mellitus (GDM) in second trimester controlled on oral hypoglycemic drugWear for 15 days and change 2 each 605Active metFORMIN XR (GLUCOPHAGE XR) 500 mg 24 hr tablet Take 1500 mg at night. 90 tablet 5Active enoxaparin (LOVENOX) 40 mg/0.4 mL syringe Indications:Antiphospholipid syndromeInject 0.4 mL (40 mg total) under the skin Every 12 (twelve) hours. 24 mL 605Active insulin NPH (HumuLIN N,NovoLIN N) 100 unit/mL injection Indications:Gestational diabetes mellitus (GDM) in second trimester controlled on oral hypoglycemic drugInj sbq in abd 8 units nightly 10 mL 60Discontinued(Patient Never Started This Medication) Active Problems ProblemNoted DateDiagnosed DateGestational diabetes mellitus (GDM) in second trimester controlled on oral hypoglycemic drug12/17/20242827Xvcmyw03/08/2025MA (advanced maternal age) multigravida 35+11/04/2024ntiphospholipid syndrome 11/04/20241741Nurjvmjtuqs23/08/8731Otmrci91/08/2025ntiphospholipid syndrome complicating , fwquqxoptd74/09/2020Estimated Date of Delivery BnvvxkdpCld20/05/2026ased on last menstrual period of 07/28/2024 Resolved Problems ProblemNoted DateDiagnosed DateResolved DateCerebral infarction, unspecified Migraine without aura and without status migrainosus, not sgoxikpbnqz80 Encounters DateTypeDepartmentCare SditZldgygyufms39/20/2025 1:45 PM EDTOffice Visit [facility] Department of [address] [address] Sam Callahan MD MPH Antiphospholipid syndrome (Primary Dx); Antiphospholipid syndrome complicating , antepartum; History of CVA (cerebrovascular accident); Coordination of complex care; 29 weeks gestation of jskusfqnu48/20/7112Atipaf63/14/2025Telephone Maternal- Medicine at [facility] [address] [place] [phone] Annita Kendall LD 02/06/2025 2:00 PM EDTTelemedicine Maternal- Medicine at [place] [address] [place] [address] Wilfrid Medina MD 27 weeks gestation of (Primary Dx); Multigravida of advanced maternal age in third trimester; Gestational diabetes mellitus (GDM) in second trimester controlled on oral hypoglycemic drug; Antiphospholipid syndrome complicating , antepartum; Antiphospholipid obcwombr48/10/2735Amsihc27/09/3624Vvpslt46/16/2025 10:00 AM EDT Telemedicine Maternal- Medicine at [facility] [address] [place] [address] Davida Smith PA-C Gestational diabetes mellitus (GDM) in second trimester controlled on oral hypoglycemic drug (Primary Dx); Antiphospholipid syndrome; Other specified hypothyroidism; Antiphospholipid syndrome complicating , rmtpyawkbq40/16/2025Travel 01/09/2025Telephone Maternal- Medicine at [place] [address] [place] [address] Wilfrid Medina MD 01/09/2025Orders Only Maternal- Medicine at [facility] [address] [place] [address] Wilfrid Medina MD Antiphospholipid syndrome (Primary Dx)01/07/2025Telephone Maternal- Medicine at [facility] [address] [place] [address] Jacque Pat, MARSHA 01/06/2025Telephone Maternal- Medicine at [facility] [address] [place] [address] Margo Khan RN 01/05/2025Orders Only Maternal- Medicine at [facility] [address] [place] [address] Jacque Pat, MARSHA Multigravida of advanced maternal age in second trimester (Primary Dx); Antiphospholipid syndrome complicating , antepartum; Gestational diabetes mellitus (GDM) in second trimester controlled on oral hypoglycemic drug; AMA (advanced maternal age) multigravida 35+, second trimester; Hypothyroidism, unspecified type; History of stroke; History of loss in prior , currently in second trimester; Hypothyroidism affecting in second trimester; Family history of autism; Dyibabgqoavk67/08/2025Documentation Maternal- Medicine at [facility] [address] [place] [address] Jacque Pat, MARSHA 01/01/2025 2:30 PM EDTTelemedicine Maternal Medicine [place] [address] [address] Wilfrid Medina MD 22 weeks gestation of (Primary Dx); Antiphospholipid syndrome complicating , antepartum; History of stroke; History of loss in prior , currently in second trimester; Gestational diabetes mellitus (GDM) in second trimester controlled on oral hypoglycemic drug; Multigravida of advanced maternal age in second trimester; Hypothyroidism affecting in second trimester; Family history of autism; Hvwbicgsjmvp56/04/2025Orders Only Maternal Medicine [place] [address] [facility] [address] [place] [phone] Iraida Warren RN Multigravida of advanced maternal age in second trimester (Primary Dx); Antiphospholipid syndrome complicating , antepartum; Gestational diabetes mellitus (GDM) in second trimester controlled on oral hypoglycemic drug; Insulin controlled gestational diabetes mellitus (GDM) in second trimester; AMA (advanced maternal age) multigravida 35+, second trimester; Hypothyroidism, unspecified type01/01/20253173Qmvjle57/29/2025Orders Only [facility] - Labor [address] [place] [address] Wilfrid Medina MD Gestational diabetes mellitus (GDM) in second trimester controlled on oral hypoglycemic drug (Primary Dx)12/26/2024Telephone Maternal- Medicine at [facility] [address] [place] [address] Stephanie Quiros LD 12/17/2024 3:30 PM EDTTelemedicine Maternal- Medicine at [facility] [address] [place] [address] Alisa Saba, VICTOR HUGO-TOR Gestational diabetes mellitus (GDM) in second trimester controlled on oral hypoglycemic drug (Primary Dx)12/17/20246628Juvehp60/15/2025Orders Only Maternal- Medicine at [facility] [address] [place] [address] Star Waggoner MD 12/12/2024Telephone Maternal- Medicine at [facility] [address] [place] [address] Annita Kendall, PRISCILLA 12/12/2024Telephone Maternal- Medicine at [facility] [address] [place] [address] Annita Kendall LD 12/03/2024 2:00 PM EDTTelemedicine Maternal- Medicine at [place] [address] [place] [address] Alisa Saba, [employer]IST Insulin controlled gestational diabetes mellitus (GDM) in second trimester (Primary Dx)12/03/2024Telephone Maternal- Medicine at [place] [address] [place] [address] Anni Abreu, ROSE 12/02/20249491Ggjbbw88/23/2025 9:30 AM EDTSupport Visit Maternal- Medicine at [place] [address] [place] [address] Lorena Enciso RN Crawford, Sarah, Cindy Uribe RD Gestational diabetes mellitus (GDM), antepartum, gestational diabetes method of control unspecified(Primary Dx)11/19/2024Travelfrom Last 3 Months Family History Medical DhgpqjuNnnfwrjyUqwuIswvdqtxGzrqzshzVjbkxbG0UWKanrknQlomthCypagi illness Maternal GrandmotherCancerPaternal GrandfatherDiabetesPaternal AwbzvoneucwZ6ZA CancerPaternal GrandmotherDiabetesPaternal OgtlbasunalX7HVZhwqkoplUipvbbU7OV RelationNameStatusCommentsFatherDeceasedMaternal GrandmotherPaternal Grandfather Paternal GrandmotherSister Social History Tobacco UseTypesPacks/DayYears UsedDateSmoking Tobacco: NeverSmokeless Tobacco: Never Tobacco Cessation:Counseling Given: Not Answered Alcohol UseStandard Drinks/WeekCommentsNot Currently0 (1 standard drink = 0.6 oz pure alcohol)ChildcareAnswerDate WasxccvkMowhxvwvnZknbzrd29/31/2019Employment AnswerDate TggligymRgndxcwaumEidvktl90/31/2019Hunger ScreeningAnswerDate RecordedWithin the past 12 months we worried whether our food would run out before we got money to buy more.Never True01/01/2025Within the past 12 months the food we bought just didn't last and we didn't have money to get more.Never True01/01/2025Purpose - LifeAnswerDate RecordedPurpose and direction in life Zzysbac75/11/2021Estimated Date of DoyefhreXngdrfjdBzj75/05/2026Based on last menstrual period of 07/28/2024Sex and Gender InformationValueDate Recorded Sex Assigned at BirthNot on fileLegal BmsEcabwn04/31/2019 12:25 PM EDTGender IdentityNot on fileSexual OrientationNot on file Last Filed Vital Signs Vital SignReadingTime TakenCommentsBlood Apswxjhu805/801 1:44 PM EDT Omtbb680202/16/2025 1:44 PM EDTTemperature--Respiratory Sigm1012 1:44 PM EDTOxygen Saturation--Inhaled Oxygen Concentration--Pmibmx37.8 kg (209 lb) 02/16/2025 1:44 PM MVRAlpqzr453.6 cm (5' 6 )02/16/2025 1:44 PM EDTBody Mass Index33.7302/16/2025 1:44 PM EDT Plan of Treatment DateTypeDepartmentCare Team (Latest Contact Info)Qqeafaakzca98/11/2025 8:00 AM ESTTelemedicine Maternal- Medicine at [address] [address] Sana Palma MD [address] [place] [address] 03/17/2025 8:30 AM ESTTelemedicine [facility], A Department of [address] [address] Sam Callahan MD MPH [address] [place] [address] Health MaintenanceDue DateLast DoneCommentsDepression Fjdjswhxa12/24/1998Adult BMI Follow Up Plan10/22/2003DTaP,Tdap and Td Vaccines (2 - Td or Tdap)07/03/2024 07/03/2014Influenza Lkxzjri5412/29/2024Pap Smeardult BMI Ofwajggkf07Tobacco Wwudskszg58 Medical Devices Not on file Procedures Procedure NamePriorityDate/TimeAssociated DiagnosisCommentsUS [facility], 1 DOGBDWthbboz54/09/2025 2:10 PM EDT Multigravida of advanced maternal age in second trimester Antiphospholipid syndrome complicating , antepartum Gestational diabetes mellitus (GDM) in second trimester controlled on oral hypoglycemic drug Insulin controlled gestational diabetes mellitus (GDM) in second trimester AMA (advanced maternal age) multigravida 35+, second trimester Hypothyroidism, unspecified type [facility] COMPREHENSIVE ANATOMIC PHFCNVYzwzddb32/04/2025 2:24 PM EDT Screening, , for anatomic survey Multigravida of advanced maternal age in second trimester GLUCOSE RANDOM OR YFYGMMEYwdmwlu98/23/2025 Gestational diabetes mellitus (GDM), antepartum, gestational diabetes method of control unspecified from Last 3 Months Results * [facility] FOLLOW-[facility], 1 FETUS (02/05/2025 2:10 PM EDT) Only the most recent of2 resultswithin the time period is included. Anatomical RegionLateralityModalityOB-GYNUltrasoundSpecimen (Source)Anatomical Location / LateralityCollection Method / VolumeCollection TimeReceived Time 02/05/2025 1:21 PM EDT Narrative 02/06/2025 5:22 PM EDT NAME: ??JUSTICE LEUNG : 1985 SEX: F Accession Number: [id number] ORDERING PHYSICIAN: MYA MASSEY REFERRING PHYSICIAN: MYA MASSEY Coding Procedures ? 68900: Ultrasound, uterus, real time with image documentation, follow up,transabdominal ? approach per fetus ? 56960: Echocardiography, , cardiovascular system, real time with image documentation (2D), with or ? without M-mode recording; follow-up or repeat study Indication Screening for follow-up survey, Screening for congenital cardiac abnormality , Gestational diabetes, AMA- Supervision of elderly , Supervision of high risk -(MOB son - hypospadia, MOB -son - laryngomalacia ), Obesity in , Hypothyroidism. History OB History ? 7. Para 3 ? [id number] Current Cell free DNA ?Low Risk analysis Maternal Assessment Physical Exam ??Height 168 cm, 5 ft 6 in. Weight 96 kg, 211 lb. Initial weight 95 kg, 209 lb. BMI 34.06 kg/m??. Initial ? BMI 33.73 kg/m??. Weight gain 1 kg, 2 lb Method Transabdominal ultrasound examination. View: Suboptimal view: limited by position. Joe . Number of fetuses: 1 Dating LMP on: ?07/28/2024 GA by LMP ?27 w + 3 d KLAUDIA by LMP: ?05/04/2025 Previous Ultrasound on: ?09/11/2024 Type of prior assessment: ?GA GA at prior assessment date ?6 w + 3 d GA by previous U/S ? 27 w + 3 d KLAUDIA by previous Ultrasound: ?05/04/2025 Ultrasound examination on: ? 02/05/2025 GA by U/S based upon: ??AC, BPD, Femur, HC GA by U/S ?27 w + 1 d KLAUDIA by U/S: ?05/06/2025 Assigned: ?based on the LMP, selected on 01/01/2025 Assigned GA (weeks days) ? 27 w + 3 d Assigned KLAUDIA: ??05/04/2025 General Evaluation Cardiac activity Present. FHR 148 bpm. Presentation: madelyn breech Placenta: Placental site: posterior, right , previously documented away from cervical os Umbilical cord: Cord vessels: 3 vessel cord. Insertion site: documented previously Amniotic fluid: Amount of AF: normal amount. MVP 6.7 cm Growth Overview Exam date ?GA ?BPD (mm) ?HC (mm) AC (mm) FL (mm) HL (mm) EFW (g) 01/01/2025 ?22w 3d ??52.3 ?26% ? 196.5 ?? 16% ? 180.1 ?? 57% ? 42.1 ?80% ? 38 ?76% ? 558 ? 73% 02/05/2025 ?27w 3d ??66.7 ?21% ? 251.5 ?? 18% ? 221.8 ?? 19% ? 52 ?44%? 46.6 ?46% ? 1025 ?26% Biometry Standard BPD ?66.7 mm 26w 6d 21% Hadlock OFD ?91.0 mm 29w 2d 93% Michel HC ? 251.5 mm ?27w 2d 18% Hadlock Cerebellum tr ??30.9 mm 26w 5d 42% Hill AC ? 221.8 mm ?26w 4d 19% Hadlock Femur ??52.0 mm 27w 5d 44% Hadlock Humerus ?46.6 mm 27w 3d 46% Michel HC / AC ?1.13 EFW ?1,025 g ??26% Hadlock EFW (lb) ? 2 lb EFW (oz) ? 4 oz EFW by: ?Hadlock ([id number]-GR-[id number]-FL) Extended Tibia ??46.0 mm 28w 0d 68% Michel CM ? 6.0 mm ?? 32% Nicolaides Head / Face / Neck Cephalic index 0.73 ? 5% Nicolaides Nasal bone: ?present Extremities / Bony Struc FL / BPD ? 0.78 FL / HC ?0.21 FL / AC ?0.23 Other Structures FHR ?148 bpm Anatomy The following structures appear normal: Head/Neck: Cranium. Cavum septi pellucidi. Cerebellum. Cisterna magna. Parenchyma. Vermis. Face: Lips. Profile. Nose. Nasal bone. Heart/Thorax: 4-chamber view. RVOT view. 3-vessel view. 5-wbkgrj-ovraait view. Great vessels. ? Right lung. Left lung. Diaphragm. Abdomen: Abdom. wall. Stomach. Kidneys. Bladder. Right renal artery. Left renal artery. The following structures could not be adequately visualized: Spine: Cervical spine. Thoracic spine. Lumbar spine. Sacral spine. The following structures were documented previously: Head / Neck ?Lateral ventricles. Choroid plexus. Midline falx. ? Neck. Face ?? Maxilla. Mandible. Orbits. Heart / Thorax LVOT view. Abdomen ?Cord insertion. Small bowel. Large bowel. Genitals. Extremities/Skeleton: Right upper arm. Right forearm. Right hand. Left upper arm. Left forearm. Left hand. Right upper leg. ? Right lower leg. Right foot. Left upper leg. Left lower leg. Left foot. Echocardiogram Situs ?situs solitus (normal) Cardiac position ? normal Cardiac axis ?? normal Cardiac size ?? normal (approx. 1/3 of thoracic area) Cardiac rhythm regular (normal) 4-chamber view normal LVOT view ?documented previously RVOT view ?normal 3-vessel view ??normal 2-skmpua-wgjcosw view ??normal Aortic arch view ? normal Ductal arch view ? documented previously Bicaval view ?? normal Interventricular septum ?normal Venous-atrial connections ?normal AV connections normal VA connections normal Pulmonary veins ?documented previously Right atrium ?? normal Left atrium ? normal Atrial septum ??normal Foramen ovale ??normal Right ventricle ?normal Left ventricle normal Ventricular septum ? normal Cross-over gr. arteries ?anterior great artery (confirmed to be the pulmonary artery by its branching) which ? crosses the course of the proximal aorta, indicative of normal relationship ofthe ? great arteries Main PA ?the main pulmonary artery can be seen bifurcating into the ductus arteriosus and the ? right pulmonary artery Pulmonary arteries ? normal Linear insertion of AV valves ??no Pericardial effusion ?? no Maternal Structures Uterus Visualized Cervix Suboptimal ? Approach - Transabdominal Right Ovary ?Not visualized Left Ovary ? Not visualized Cul de Sac ? Suboptimal Impression Single live intrauterine at 27w 3d. Normal growth. EFW measures at the 26%, AC measures at the 19%. echocardiogram did not reveal sonographic evidence of any gross structural abnormalities. Amniotic fluid MVP measures 6.7 cm. Recommendations Please see [facility] recommendations from prior clinical and/or ultrasound report documentation. anatomic survey is incomplete (suboptimal spine images) due to late gestational age and suboptimal visualization. Patient is not scheduled to return for additional ultrasound. Please reschedule for specific concerns or indications. Subsequent follow up or other follow up as clinically determined by primary OB provider unless otherwise specified by M. Results forwarded to ordering provider so they can follow up with the patient as necessary. Procedure Note Lala Gross MD - 02/06/2025 NAME: JUSTICE LEUNG : 1985 SEX: F Accession Number: [id number] ORDERING PHYSICIAN: MYA MASSEY REFERRING PHYSICIAN: MYA MASSEY Coding Procedures 00431: Ultrasound, uterus, real time with image documentation, follow up, transabdominal approach per fetus 78129: Echocardiography, , cardiovascular system, real timewith image documentation (2D), with or without M-mode recording; follow-up or repeat study Indication Screening for follow-up survey, Screening for congenital cardiacabnormality , Gestational diabetes, AMA- Supervision of elderly , Supervision of high risk -(MOB son - hypospadia, MOB -son - laryngomalacia ), Obesity in , Hypothyroidism. History OB History 7. Para 3 [id number] Current Cell free DNA Low Risk analysis Maternal Assessment Physical Exam Height 168 cm, 5 ft 6 in. Weight 96 kg, 211 lb. Initialweight 95 kg, 209 lb. BMI 34.06 kg/m??. Initial BMI 33.73 kg/m??. Weight gain 1 kg, 2 lb Method Transabdominal ultrasound examination. View: Suboptimal view: limited byfetal position. Joe . Number of fetuses: 1 Dating LMP on: 07/28/2024 GA by LMP 27 w + 3 d KLAUDIA by LMP: 05/04/2025 Previous Ultrasound on: 09/11/2024 Type of prior assessment: GA GA at prior assessment date 6 w + 3 d GA by previous U/S 27 w + 3 d KLAUDIA by previous Ultrasound: 05/04/2025 Ultrasound examination on: 02/05/2025 GA by U/S based upon: AC, BPD, Femur, HC GA by U/S 27 w + 1 d KLAUDIA by U/S: 05/06/2025 Assigned: based on the LMP, selected on 01/01/2025 Assigned GA (weeks days) 27 w + 3 d Assigned KLAUDIA: 05/04/2025 General Evaluation Cardiac activity Present. FHR 148 bpm. Presentation: madelyn breech Placenta: Placental site: posterior, right , previously documented awayfrom cervical os Umbilical cord: Cord vessels: 3 vessel cord. Insertion site: documented previously Amniotic fluid: Amount of AF: normal amount. MVP 6.7 cm Growth Overview Exam date GA BPD (mm) HC (mm) AC (mm) FL (mm) HL (mm) EFW(g) 01/01/2025 22w 3d 52.3 26% 196.5 16% 180.1 57%42.1 80% 38 76% 558 73% 02/05/2025 27w 3d 66.7 21% 251.5 18% 221.8 19% 5244% 46.6 46% 1025 26% Biometry Standard BPD 66.7 mm 26w 6d 21% Hadlock OFD 91.0 mm 29w 2d 93% Michel HC 251.5 mm 27w 2d 18% Hadlock Cerebellum tr 30.9 mm 26w 5d 42% Hill AC 221.8 mm 26w 4d 19% Hadlock Femur 52.0 mm 27w 5d 44% Hadlock Humerus 46.6 mm 27w 3d 46% Michel HC / AC 1.13 EFW 1,025 g 26% Hadlock EFW (lb) 2 lb EFW (oz) 4 oz EFW by: Hadlock ([id number]-[id number]-FL) Extended Tibia 46.0 mm 28w 0d 68% Michel CM 6.0 mm 32% Nicolaides Head / Face / Neck Cephalic index 0.73 5% Nicolaides Nasal bone: present Extremities / Bony Struc FL / BPD 0.78 FL / HC 0.21 FL / AC 0.23 Other Structures FHR 148 bpm Anatomy The following structures appear normal: Head/Neck: Cranium. Cavum septi pellucidi. Cerebellum. Cisterna magna. Parenchyma. Vermis. Face: Lips. Profile. Nose. Nasal bone. Heart/Thorax: 4-chamber view. RVOT view. 3-vessel view. 9-ryzfpl-rmsqaxzuyej. Great vessels. Right lung. Left lung. Diaphragm. Abdomen: Abdom. wall. Stomach. Kidneys. Bladder. Right renal artery. Leftrenal artery. The following structures could not be adequately visualized: Spine: Cervical spine. Thoracic spine. Lumbar spine. Sacral spine. The following structures were documented previously: Head / Neck Lateral ventricles. Choroid plexus. Midline falx. Neck. Face Maxilla. Mandible. Orbits. Heart / Thorax LVOT view. Abdomen Cord insertion. Small bowel. Large bowel. Genitals. Extremities/Skeleton: Right upper arm. Right forearm. Right hand. Leftupper arm. Left forearm. Left hand. Right upper leg. Right lower leg. Right foot. Left upper leg. Left lower leg. Leftfoot. Echocardiogram Situs situs solitus (normal) Cardiac position normal Cardiac axis normal Cardiac size normal (approx. 1/3 of thoracic area) Cardiac rhythm regular (normal) 4-chamber view normal LVOT view documented previously RVOT view normal 3-vessel view normal 6-gotaeu-gqjbxpg view normal Aortic arch view normal Ductal arch view documented previously Bicaval view normal Interventricular septum normal Venous-atrial connections normal AV connections normal VA connections normal Pulmonary veins documented previously Right atrium normal Left atrium normal Atrial septum normal Foramen ovale normal Right ventricle normal Left ventricle normal Ventricular septum normal Cross-over gr. arteries anterior great artery (confirmed to be thepulmonary artery by its branching) which crosses the course of the proximal aorta, indicative ofnormal relationship of the great arteries Main PA the main pulmonary artery can be seen bifurcatinginto the ductus arteriosus and the right pulmonary artery Pulmonary arteries normal Linear insertion of AV valves no Pericardial effusion no Maternal Structures Uterus Visualized Cervix Suboptimal Approach - Transabdominal Right Ovary Not visualized Left Ovary Not visualized Cul de Sac Suboptimal Impression Single live intrauterine at 27w 3d. Normal growth. EFW measures at the 26%, AC measures at the 19%. echocardiogram did not reveal sonographic evidence of any grossstructural abnormalities. Amniotic fluid MVP measures 6.7 cm. Recommendations Please see [facility] recommendations from prior clinical and/or ultrasoundreport documentation. anatomic survey is incomplete (suboptimal spine images) due to late gestational age and suboptimal visualization. Patient is not scheduled to return for additional ultrasound. Pleasereschedule for specific concerns or indications. Subsequent follow up or other follow up as clinically determined byprimary OB provider unless otherwise specified by MFM. Results forwarded to ordering provider so they can follow up with thepatient as necessary. Authorizing ProviderResult TypeResult StatusCorey R Montez DOIMG US ORDERABLES Final Result * Glucose random or fasting- POCT (11/19/2024)ComponentValueRef RangeTest Method Analysis TimePerformed AtPathologist SignatureExternal Glucose Fasting Or Random (Fbs)94MANUALLY TRANSCRIBED RESULTSSpecimen (Source)Anatomical Location / LateralityCollection Method / VolumeCollection TimeReceived TimeBloodVenous blood / Gqbispn8911/19/2024 Narrative Authorizing ProviderResult TypeResult StatusStar LUNA BLOOD ORDERABLESFinal ResultPerforming OrganizationAddressCity/State/ZIP CodePhone Number MANUALLY TRANSCRIBED RESULTS from Last 3 Months Insurance Care Teams Team MemberRelationshipSpecialtyStart DateEnd Evans Casas DO PCP - GeneralFamily Medicine07/07/19
--- OUTSIDE RECORDS SUMMARY | 2025-02-17 13:22 | XMS_ITS | Encounter Summary ---
Author Organization [facility] tem Address [id number] [place] [address] Care Team Providers Care Editor Map Name Role Phone Evans Casas DO Primary Care Provider [phone] Encounter Details DateTypeDepartmentCare Team (Latest Contact Info)Ucfidwxkwdh28/09/2025Travel Social History Tobacco UseTypesPacks/DayYears UsedDateSmoking Tobacco: NeverSmokeless Tobacco: NeverAlcohol UseStandard Drinks/WeekCommentsNot Currently0 (1 standard drink = 0.6 oz pure alcohol)ChildcareAnswerDate SedeiqqvMoqsikuarFweqvye89/31/2019 EmploymentAnswerDate UxiexstfQxvftgwvmtMrcskgr91/31/2019Hunger ScreeningAnswer Date RecordedWithin the past 12 months we worried whether our food would run out before we got money to buy more.Never True01/01/2025Within the past 12 months the food we bought just didn't last and we didn't have money to get more.Never True01/01/2025Purpose - LifeAnswerDate RecordedPurpose and direction in life Mygcibk08/11/2021Estimated Date of BnoqpetsJoqniwboYyh64/05/2026Based on last menstrual period of 07/28/2024Sex and Gender InformationValueDate Recorded Sex Assigned at BirthNot on fileLegal MzvLxdzdk45/31/2019 12:25 PM EDTGender IdentityNot on fileSexual OrientationNot on filedocumented as of this encounter Plan of Treatment DateTypeDepartmentCare Team (Latest Contact Info)Zumowsltrkk21/11/2025 8:00 AM ESTTelemedicine [facility] [address] [place] [address] Sana Palma MD [address] [place] [address] 03/17/2025 8:30 AM ESTTelemedicine [facility] Rhe[facility], A Department of [address] [address] Sam Callahan MD [address] [address] documented as of this encounter Visit Diagnoses Not on filedocumented in this encounter Care Teams Team MemberRelationshipSpecialtyStart DateEnd Date Evans Casas DO PCP - GeneralFamily Medicine07/07/19documented as of this encounter
--- OUTSIDE RECORDS SUMMARY | 2025-02-17 13:22 | XMS_ITS | Clinical Summary ---
Author Organization [facility] Address [address] [place] [address] Care Team Providers Care Accounting Representative Name Role Phone Penelope Casas MD Primary Care Provider [phone] Allergies Active AllergyReactionsCriticalityNoted DateCommentsCiprofloxacinGI intolerance 3Ciprofloxacin-Fluocinolone Pf05/19/2019 Other Reaction(s): Other: See Comments Dizziness, weakness sweating Otdtfpc8509/10/2017 Other Reaction(s): GI Disturbance, GI Upset Diarrhea Diarrhea Lactose Intolerance (Gi)11/15/2023 Other Reaction(s): Illness Bbydxjwckmg73/06/2021 Other Reaction(s): Other (See Comments) DlmveYfihtAof22/26/2018 seasonal Other Reaction(s): Other (See Comments) Medications MedicationSigDispense QuantityRefillsLast FilledStart DateEnd DateStatus Multiple Vitamin (Multi-Vitamin) tablet Take 1 tablet by mouth in the morning.Active levothyroxine (Synthroid) 25 MCG tablet Indications:Abnormal TSHTake 1 tablet (25 mcg) by mouth in the morning. Take before meals. 30 tablet 110//[id number]//6Active enoxaparin (Lovenox) 40 MG/0.4ML injection 1 (one) time each day at the same timeActive docusate sodium (Colace) 50 MG capsule Take 100 mg by mouth in the morning and 100 mg before bedtime.Active polyethylene glycol, PEG, 3350 (Glycolax) 17 GM/SCOOP powder Take 17 g by mouth DailyActive Alcohol Swabs (Alcohol Prep Pad) 70 % pads Indications:Second trimester (HHS-HCC),13 weeks gestation of ([facility]),Multigravida of advanced maternal age in second trimester ([facility]), Gestational diabetes mellitus (GDM), antepartum, gestational diabetes method of control unspecified([facility]),Elevated glucose tolerance testApply 1 Pad topically Daily Use four times daily to check FSBS. 150 each tive Blood Glucose Monitoring Suppl ([employer] Glucometer) w/Device kit Indications:Second trimester ([facility]),13 weeks gestation of ([facility]),Multigravida of advanced maternal age in second trimester ([facility]), Gestational diabetes mellitus (GDM), antepartum, gestational diabetes method of control unspecified([facility]),Elevated glucose tolerance test1 kit Daily Use four times daily to check FSBS. In the morning prior to breakfast & 1 hour after each meal for a total of 4times daily. 1 kit ctive fluticasone (Flonase) 50 MCG/ACT nasal spray Indications:Sinus headacheAdminister 1 spray into each nostril Daily Shake gently. Before first use, prime pump. After use, clean tip and replace cap. 16 g ctive metFORMIN XR (Glucophage-XR) 500 MG 24 hr tablet Indications:Gestational diabetes mellitus (GDM), antepartum, gestational diabetes method of control unspecified([facility])Take 3 tablets (1,500 mg) by mouth in the evening. Take with meals Do not crush, chew, or split. 90 tablet 5Active Enoxaparin Sodium (Lovenox) 40 MG/0.4ML solution prefilled syringe Indications:Anticoagulant long-term use,Antiphospholipid antibody positive, Antiphospholipid antibody syndrome ([facility])Inject 40 mg as directed Daily for 30 doses 12 mL 5Active metFORMIN XR (Glucophage-XR) 500 MG 24 hr tablet Indications:Insulin resistanceTake 1 tablet (500 mg) by mouth 1 (one) time each day at the same time 30 tablet Discontinued metFORMIN XR (Glucophage-XR) 500 MG 24 hr tablet Indications:Gestational diabetes mellitus (GDM), antepartum, gestational diabetes method of control unspecified([facility])Take 3 tablets (1,500 mg) by mouth in the evening. Take with meals Do not crush, chew, or split. 90 tablet 3095001/19/2025Discontinued(Reorder) Active Problems ProblemNoted DateDiagnosed DateH/O loss01/05/2025Multigravida of advanced maternal age in second trimester ([facility])01/05/2025Thyroid ytxfyvt4701/05/2025 Referred otalgia of right ear11/19/2023LPRD (laryngopharyngeal reflux disease) 11/19/2023cute on chronic vesicular eczema of hands and feet11/15/2023lood pressure elevated without history of HTN11/15/2023MI 37.0-37.9, adult11/15/2023 Cold tnmwgiovzft79/18/2024eviated ghbtyt2411/15/2023ry mouth11/15/2023Elevated blood pressure shvuxqa7311/15/2023Environmental lsubfoxai46/18/2024H/O: prphupglfogzky71/18/2024History of xtwxoy1211/15/2023History of cerebrovascular ygwabymq94/18/2024 Overview (11/15/2023): reported by pt - related to antiphospholipid syndrome History of COVID-19011/15/2023History of gestational jzxgtbik60/18/2024History of kidney xajjvm2111/15/2023Hx of iron deficiency vqdyxm4411/15/2023Immunization not carried out because of patient mbvwmram11/18/2024Iron fybonoywej87/18/2024 Irregular uterine ibvguiqw51/18/2024Morbid cwdpchf4211/15/2023Nasal polyps 11/15/2023Non-oeghti6511/15/2023OSA (obstructive sleep apnea)11/15/2023aresthesia of bilateral legs11/15/2023re-yypflury62/18/2024ight lower quadrant pain 11/15/2023ight otitis ldiojse8111/15/2023Salivary gland oamzmlmb54/18/2024Snoring 11/15/2023bdominal pain02/13/2024Acute bronchitis due to taxowahru05/13/2024 Fdguhnp0606/12/2023ysfunction of eustachian tube06/12/20230861Gmjrxja71/13/2024 Walqvrftfeau88/13/2024Inhalation bberci3306/12/2023Lactation problem ([facility]) 06/12/2023sychogenic mydarhkdopctbnzw28/13/2024Suspected severe acute respiratory syndrome coronavirus 2 (SARS-CoV-2) yqwlmjezm91/13/2024Hypoglycemia 4Primary hypercoagulable state ([facility])08/01/2022estational diabetes mellitus (GDM), antepartum ([facility])01/26/2022Genitourinary hiqknejq64/22/2022 Muscle yxpumpteclagl07/22/2022nticoagulant long-term use02/22/2020 Cerebrovascular accident (CVA) due to stenosis of middle cerebral artery 02/22/2020Anemia complicating childbirth ([facility])01/16/2020First degree perineal laceration during delivery ([facility])01/16/2020Acute posthemorrhagic uzdaxy9101/16/2020Other immediate hemorrhage ([facility])01/16/2020 Personal history of urinary (tract) qzgqopundy10/18/2020Single live ([facility])01/15/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 ([facility])01/08/2020Pruritus, /04/2020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)12/30/201932 weeks gestation of ([facility])11/28/2019Thrombocytopenia, aczzxpeedzn04/23/2020Other general symptoms and signs10/28/2019Urinary tract wagdkorlz53/18/2020 Ttahgwzwnvgc14/28/2020SVT (supraventricular tachycardia)08/26/2019 Antiphospholipid antibody syndrome ([facility])07/07/2019Other bacterial infections of unspecified site06/27/2019Less than 8 weeks gestation of ([facility]) 06/05/2019Encounter for supervision of normal , unspecified, first trimester ([facility])05/29/2019Cerebral infarction, jzoklaggndz52/17/2020 Deficiency of other specified B group yifbswzv98/17/9163Qcfouckhbtoe08/17/2020 Unspecified condition associated with female genital organs and menstrual cycle 05/09/2019Other specified noninflammatory disorders of jhuicq3302/21/2019Frequency of eauzlnuqgms58/23/2019Unspecified ovarian cyst, right side02/06/2019 Sadsjycztfe15/09/2019Coagulation defect, unspecified ([facility])02/05/2019 Dizziness and zyfmyfhmg64/09/2019Long term (current) use of 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/lhpnzpbevzuhm67/09/2019Other acute postprocedural pain02/03/2019 Pelvic and perineal pain02/01/2019Syncope and uskkowzt18/04/2019Raised antibody titer09/25/2017Migraine without aura and without status migrainosus, not qwskcskgvas93/16/2018Antiphospholipid antibody wytwpkkj59/14/2018Fatigue 12/29/2016Idiopathic progressive rjojgwdzcn04/01/2017Pain in joint12/29/2016 Estimated Date of SigsiromIvbimedwMpo72/05/2026Based on last menstrual period of 07/28/2024 Encounters DateTypeDepartmentCare DqckNovkyqciclg27/13/2025 10:30 AM EDTRoutine [facility] [address] [place] [address] Mya Herrmann DO Third trimester ([facility]); 28 weeks gestation of ([facility]); Anemia complicating childbirth ([facility]); Anticoagulant long-term use; Antiphospholipid antibody positive; Blood pressure elevated without history of HTN; Coagulation defect, unspecified ([facility])02/09/2025bstract [facility] ZELAYAN [address] [place] [address] Mya Herrmann DO 02/03/2025Patient Outreach [facility] [address] [place] [address] Petra Whitmore LPN 01/21/2025Telephone [facility] [address] [place] [address] Celia Keith NP 01/19/2025 9:00 AM EDTRoutine [facility] Borrero [address] [place] [address] Mya Herrmann, Second trimester ([facility]); 25 weeks gestation of ([facility]); Gestational diabetes mellitus (GDM), antepartum, gestational diabetes method of control unspecified([facility]); Anticoagulant long-term use; Antiphospholipid antibody positive; Antiphospholipid antibody syndrome ([facility])01/19/2025bstract [facility]re[facility] [address] [place] [address] Mya Herrmann, 01/15/2025Telephone [facility] [address] [place] [address] Lala Hess MA 01/06/2025Patient Outreach [address] [place] [address] Petra Whitmore LPN 01/05/2025 2:40 PM EDTRoutine [facility] Borre[facility] [address] [place] [address] Mya Herrmann, Second trimester ([facility]); 23 weeks gestation of ([facility]); Thyroid disease ; Gestational diabetes mellitus (GDM), antepartum, gestational diabetes method of control unspecified([facility]); Multigravida of advanced maternal age in second trimester ([facility]); H/O loss; Lightheaded; Suolrxaoh34/08/2025amboo flowsheet [facility] [address] [place] [address] Mya Herrmann, 12/26/2024bstract [facility] [place] [address] Mya Herrmann, DO 12/16/2024linisync Result Encounter [facility] External Department Unsolicited Mya Herrmann, DO 12/16/2024linisync Result Encounter [facility] External Department Unsolicited Mya Herrmann, DO 12/12/2024Telephone [facility] [address] [place] [address] Ariane Joseph, DEB 12/12/2024Patient Outreach [facility] [address] [place] [address] Petra Whitmore, DEB 12/11/2024 9:10 AM EDTRoutine [facility] [address] [place] [address] Mya Herrmann, DO 19 weeks gestation of ([facility]); Second trimester ([facility]); Thyroid disease ; Multigravida of advanced maternal age in second trimester ([facility]); Gestational diabetes mellitus (GDM), antepartum, gestational diabetes method of control unspecified([facility])12/11/2024linisync Result Encounter [facility] External Department Unsolicited Mya Herrmann, DO 12/11/2024amboo flowsheet [facility] [place] [facility] [address] [place] [address] [place] [phone] Mya Herrmann, DO 12/08/2024Patient Outreach [facility] [address] [place] [address] Petra Whitmore, DEB 12/04/2024bstract [facility] [address] [place] [address] Petra Whitmore, DEB 11/27/2024Telephone [facility] [address] [place] [address] Mya Herrmann, DO 11/21/2024Telephone [facility] [place] [facility] [address] [place] [address] Lala Hess MA 11/20/2024 10:10 AM EDTRoutine [facility] [address] [place] [address] [place] [address] Mya Herrmann DO Second trimester ([facility]); 16 weeks gestation of ([facility]); Screening, , for anatomic survey ([facility]); Vaginal discharge; Sinus quelqbly87/24/2025amboo flowsheet [facility] [address] [place] [address] Mya Herrmann DO from Last 3 Months Family History Medical HistoryRelationNameCommentsCerebrovascular AccidentFatherDiabetesFather Heart problemsMaternal GrandfatherMental illnessMaternal GrandmotherCancer Paternal GrandfatherDiabetesPaternal GrandfatherCancerPaternal Grandmother DiabetesPaternal GrandmotherDiabetesSisterRelationNameStatusCommentsFather Maternal GrandfatherMaternal GrandmotherPaternal GrandfatherPaternal Grandmother Sister Social History Tobacco UseTypesPacks/DayYears UsedDateSmoking Tobacco: NeverSmokeless Tobacco: Never Tobacco Cessation:Counseling Given: Not Answered Alcohol UseStandard Drinks/WeekCommentsNever0 (1 standard drink = 0.6 oz pure alcohol)PHQ-2AnswerDate RecordedPatient Health Questionnaire-2 Sgkiy222 Estimated Date of OhttrbbnNkqczgkmKox11/05/2026ased on last menstrual period of 07/28/2024Sex and Gender InformationValueDate RecordedSex Assigned at BirthNot on fileLegal VkaPxcbjx86/15/2023 11:19 PM EDTGender IdentityNot on file Sexual OrientationNot on file Last Filed Vital Signs Vital SignReadingTime TakenCommentsBlood Bhrpfwpl815/7602/09/2025 10:45 AM EDT Pulse--Temperature--Respiratory Rate--Oxygen Saturation--Inhaled Oxygen Concentration--Pzgjxh49.9 kg (211 lb 6.4 oz)02/09/2025 10:45 AM MAQYndoni028.6 cm (5' 6 )11/19/2023 1:48 PM EDTBody Mass Index34.1207 1:48 PM EDT Plan of Treatment DateTypeDepartmentCare Team (Latest Contact Info)Ulbrfmryvoa68/27/2025 9:00 AM EDTRoutine [facility] [address] [place] [phone] MontezMya montesinos, DO [address] [place] [address] Health MaintenanceDue DateLast DoneCommentsHPV/Usicam9410/22/2015Influenza Vaccine (#1)2024ervical Cancer Amjvbkmlf78/18/2025Pap Smear Procedures Procedure NamePriorityDate/TimeAssociated DiagnosisCommentsPOCT URINALYSIS PCSHHTXGVuzvmvd26/13/2025 10:55 AM EDT 28 weeks gestation of ([facility]) POCT URINALYSIS HYLHYSMDFkwppmz75/22/2025 9:33 AM EDT Second trimester ([facility]) POCT URINALYSIS WHHQWWCAHrbgaqa51/08/2025 3:25 PM EDT Second trimester ([facility]) OB CERVICAL PMOZTI3612/16/2024 8:41 PM EDT [facility] URINE MICROSCOPIC HWQLJbptwak32/19/2025 6:32 PM EDT [facility] UA (CLEAN/CATCH) IT APPLICATIONS ANALYST/MICRO IF IND.Szmuwfb0112/16/2024 6:32 PM EDT ALL THYROID STIM XIBHFLRSipzdxb90/14/2025 10:50 AM EDT POCT URINALYSIS ITWOZIKQVbojhos06/14/2025 9:36 AM EDT 19 weeks gestation of ([facility]) Second trimester ([facility]) RECURRENT VAGINITIS (HTRX)Xvmmsrt8311/20/2024 12:08 PM EDT POCT URINALYSIS UIHCIEKTIpwyrzp91/24/2025 11:08 AM EDT 16 weeks gestation of ([facility]) PAP XJDVEShrkykp29/18/2022 12:00 AM EDTfrom Last 3 Months or Most Recently Relevant to Health Maintenance Results * (ABNORMAL) POCT urinalysis dipstick manually resulted (02/09/2025 10:55 AM EDT) Only the most recent of5 resultswithin the time period is included. ComponentValueRef RangeTest MethodAnalysis TimePerformed AtPathologist Signature Color, UAYellowClarity, UAClearGlucose, UANegativeNegative - 2000(110) ++++ mg/dLBilirubin, UANegativeNegative - 4(70) +++ mg/dLKetones, UANegativeNegative - 160(16) ++++ mg/dLSpec Grav, UA1.0051 - 1.03Blood, UANegativeNegative - 50 Max/mcLpH, UA6.55 - 9Protein, UANegativeNegative - 2000(20) ++++ mg/dL Urobilinogen, UA2.00.2 - 12 mg/dLLeukocytes, UATraceNegative - 500+++ John/mcL Nitrite, UANegativeNegative - PositiveSpecimen (Source)Anatomical Location / LateralityCollection Method / VolumeCollection TimeReceived KxerVpwph01/13/2025 10:55 AM EDT Narrative Authorizing ProviderResult TypeResult StatusCorey Montez DOPOINT OF CARE TEST ENTER/EDIT ORDERABLESFinal Result * US OB CERVICAL LENGTH (12/16/2024 8:41 PM EDT)Anatomical RegionLaterality ModalityOtherSpecimen (Source)Anatomical Location / LateralityCollection Method / VolumeCollection TimeReceived Time12/16/2024 8:41 PM EDT Narrative 12/16/2024 8:43 PM EDT [facility] ?[address] ? [place] [address] ? Ultrasound Report ? Signed ? Patient: JUSTICE,MADHU S ?MR#: [id number] ?? : 1985 ?Acct:[id number] ?? Age/Sex: 39 / F ?ADM Date: ?? Loc: [facility] ??251-1 ? Attending Dr: Mya Herrmann D.O. ? Ordering Physician: Mya Herrmann D.O. ?? Date of Service: 12/16/24 ?? Procedure(s): US OB cervical length ?? Accession Number(s): [id number] ? cc: Mya Herrmann D.O.; PENELOPE CASAS ? [facility] ? [address] ? [place] [address] ? Patient Name: ?? MADHU RENDON ? MRN: [facility]:[id number] ? date: 1985 ?Sex: F ?? Assigned Patient Location: [facility] ?? Current Patient Location: ? Accession/Order Number: [id number] ?? Exam Date: 12/16/2024 ??20:39 ?Report Date: 12/16/2024 ??20:41 ? At the request of: ?? MYA ??MONTEZ ??DO ? Procedure: ??US OB cervical length ? Limited ultrasound ? HISTORY: Abdominal cramping for one day ? Fetus in cephalic presentation with longitudinal lie. ??Amniotic fluid ?? subjectively normal. ??Placenta is in posterior position. ??The placental tip is ?? 7 cm from the internal os. ??The heart rate is 157 bpm. ?? somatic ?? motion identified. ??The cervical length is 3.6 cm and closed. ? US/US OB cervical length ?? IMPRESSION: 3.6 cm cervical length with closed os. ??Single live intrauterine ?? gestation. ? Impression dictated by: Robert Beltrán M.D. ??12/16/2024 8:41 PM ? Dictation Location: [facility] ? Electronically authenticated by: [id number] ??Y ?? Date: 12/16/2024 ??20:41 ? Dictated By: ?Robert Beltrán D.O. ? Signed By: ?12/16/242042 ? DD/ 40 ? TD/TT: ? Care Navigator: Procedure Note Radiology, Radiologist, MD - 12/16/[address] [address] Ultrasound Report Signed Patient: MADHU RENDON [facility]#: [id number] : 1985Acct:[id number] Age/Sex: 39 / FADM Date: Loc: [facility] 251-[address]: Mya Herrmann D.O. Ordering Physician: Mya Herrmann D.O. Date of Service: 12/16/24 Procedure(s): US OB cervical length Accession Number(s): [id number] cc: Mya Herrmann D.O.; PENELOPE CASAS [place] [address] Patient Name: MADHU RENDON MRN: [facility]:[id number] date: 1985 Sex: F Assigned Patient Location: [facility] Current Patient Location: Accession/Order Number: [id number] Exam Date: 12/16/2024 20:39 Report Date: 12/16/2024 20:41 At the request of: MYA HERRMANN DO Procedure: US OB cervical length Limited ultrasound HISTORY: Abdominal cramping for one day Fetus in cephalic presentation with longitudinal lie. Amniotic fluid subjectively normal. Placenta is in posterior position. The placentaltip is 7 cm from the internal os. The heart rate is 157 bpm. Fetalsomatic motion identified. The cervical length is 3.6 cm and closed. US/US OB cervical length IMPRESSION: 3.6 cm cervical length with closed os. Single liveintrauterine gestation. Impression dictated by: Robert Beltrán M.D. 12/16/2024 8:41 PM Dictation Location: [place] [address] Electronically authenticated by: [id number] Y Date: 0:41 Dictated By: Robert Beltrán D.O. Signed By:12/16/242042 DD/ 40 TD/TT: Care Navigator: Authorizing ProviderResult TypeResult StatusCorecarmen Herrmann DOCLINISYNC IMAGINGFinal Result * (ABNORMAL) [facility] URINE MICROSCOPIC ONLY (12/16/2024 6:32 PM EDT)ComponentValue Ref RangeTest MethodAnalysis TimePerformed AtPathologist SignatureTB WBC2-5 (A)NONE SEEN #/HPFTBHTBH RBC0-20 - 2 #/HPFTBHBACTERIA URINESMALL(A)NONE SEEN #/HPFTBHMUCUS URINENONE SEENNONE SEENTBHSQUAMOUS EPITHELIAL CELL URINEMANY(A) NONE/RARE #/LPFTBHCRYSTALS SEEN?None SeenNone Seen #/HPFTBHCAST SEEN?NONE SEEN NONE SEEN #/LPFTBHURINE CULTURE INDICATEDYES-LCTBHSpecimen (Source)Anatomical Location / LateralityCollection Method / VolumeCollection TimeReceived Time 12/16/2024 6:32 PM EDT12/16/2024 6:40 PM EDT Narrative [facility] - 12/16/2024 7:09 PM EDT Authorizing ProviderResult TypeResult StatusCorey Montez DOCLINISYNCFinal Result Performing OrganizationAddressCity/State/ZIP CodePhone Number [facility] * (ABNORMAL) [facility] UA (CLEAN/CATCH) IT APPLICATIONS ANALYST/MICRO IF IND. (12/16/2024 6:32 PM EDT) ComponentValueRef RangeTest MethodAnalysis TimePerformed AtPathologist SignatureCOLOR URINELT. YELLOWYELLOWTBHCLARITY URINECLEARCLEARTBHSPECIFIC GRAVITY URINE<=1.005(A)1.005 - 1.025TBHPH URINE6.05.0 - 9.0TBHPROTEIN URINE NEGATIVENEG/TRACE mg/dLTBHGLUCOSE URINE UANEGATIVENEGATIVE mg/dLTBHBILIRUBIN URINENEGATIVENEGATIVETBHKETONES URINENEGATIVENEGATIVE mg/dLTBHBLOOD URINE NEGATIVENEGATIVETBHNITRITE URINENEGATIVENEGATIVETBHUROBILINOGEN URINE0.20.2 - 1.0 EU/dLTBHLEUKOCYTE ESTERASE URINESMALL(A)NEGATIVETBHURINE MICROSCOPIC INDICATEDYESTBHSpecimen (Source)Anatomical Location / LateralityCollection Method / VolumeCollection TimeReceived Time12/16/2024 6:32 PM EDT12/16/2024 6:40 PM EDT [facility] - 12/16/2024 7:09 PM EDT Authorizing ProviderResult TypeResult StatusCorey Montez DOCLINISYNCFinal Result Performing OrganizationAddressCity/State/ZIP CodePhone Number [facility] * ALL THYROID STIM HORMONE (12/11/2024 10:50 AM EDT)ComponentValueRef RangeTest MethodAnalysis TimePerformed AtPathologist SignatureTHYROID STIMULATING HORMONE1.5080.358 - 3.740 uIU/mLTBHSpecimen (Source)Anatomical Location / LateralityCollection Method / VolumeCollection TimeReceived Time12/11/2024 10:50 AM EDT12/11/2024 10:51 AM EDT Narrative [facility] - 12/11/2024 11:33 AM EDT Authorizing ProviderResult TypeResult StatusCorey Montez DOCLINISYNCFinal Result Performing OrganizationAddressCity/State/ZIP CodePhone Number [facility] * (ABNORMAL) RECURRENT VAGINITIS (HTRX) (11/20/2024 12:08 PM EDT)ComponentValue Ref RangeTest MethodAnalysis TimePerformed AtPathologist SignatureATOPOBIUM BPXHSDT695.961 - 24.689 ppm11/21/2024 6:55 AM EDTHealthTrackRx at [facility] ATOPOBIUM VAGINAENot Rkprwsza29.961 - 24.689 ppm11/21/2024 6:55 AM EDT [facility]PortBVAB 2,3 (BACTERIAL VAGINOSIS ASSOCIATED BACTERIA 2, 3); MOBILUNCUS SPP25.705(A)19.961 - 24.689 ppm11/21/2024 6:55 AM EDT [facility] 2,3 (BACTERIAL VAGINOSIS ASSOCIATED BACTERIA 2, 3); MOBILUNCUS SPPDetected(A)19.961 - 24.689 ppm11/21/2024 6:55 AM EDT [facility] LabPortCANDIDA ALBICANS, PARAPSILOSIS, APHVOPJYRZ739.000 - 30.347 ppm11/21/2024 6:55 AM EDTHealthTrackRx at LabPortCANDIDA ALBICANS, PARAPSILOSIS, TROPICALISNot Uhoyqpko01.000 - 30.347 ppm11/21/2024 6:55 AM EDT [facility]PortCANDIDA WXLBWLMT821.000 - 31.618 ppm11/21/2024 6:55 AM EDTHealthTrackRx at LabPortCANDIDA GLABRATANot Vtklqojr66.000 - 31.618 ppm 11/21/2024 6:55 AM EDTHealthTrackRx at LabPortCANDIDA GLDUIW220.000 - 30.873 ppm11/21/2024 6:55 AM EDTHealthTrackRx at LabPortCANDIDA KRUSEINot Detected 23.000 - 30.873 ppm11/21/2024 6:55 AM EDTHealthTrackRx at LabPortCHLAMYDIA VIZJBMAWMHR195.000 - 31.586 ppm11/21/2024 6:55 AM EDTHealthTrackRx at LabDe[facility] CHLAMYDIA TRACHOMATISNot Waztgcxw46.000 - 31.586 ppm11/21/2024 6:55 AM EDT HealthTrackRx at LabPortGARDNERELLA DETBZYCHX179.961 - 24.689 ppm11/21/2024 6:55 AM EDTHealthTrackRx at LabPortGARDNERELLA VAGINALISNot Ebaylhiq00.961 - 24.689 ppm11/21/2024 6:55 AM EDTHealthTrackRx at LabPortMEGASPHAERA (TYPES 1, 2)019.961 - 24.689 ppm11/21/2024 6:55 AM EDTHealthTrackRx at LabPort MEGASPHAERA (TYPES 1, 2)Not Gxkldnhf22.961 - 24.689 ppm11/21/2024 6:55 AM EDT [facility]TrackRx at LabPortNEISSERIA SNWUSQSMHHC504.000 - 32.587 ppm11/21/2024 6:55 AM EDTHealthTrackRx at LabPortNEISSERIA GONORRHOEAENot Lbpvzxzj74.000 - 32.587 ppm11/21/2024 6:55 AM EDTHealthTrackRx at LabPortTRICHOMONAS VAGINALIS0 23.000 - 31.995 ppm11/21/2024 6:55 AM EDTHealthTrackRx at LabPortTRICHOMONAS VAGINALISNot Ifuyxtfv80.000 - 31.995 ppm11/21/2024 6:55 AM EDTHealthTrackRx at LabPortMYCOPLASMA LZYENCDZQI403.961 - 24.689 ppm11/21/2024 6:55 AM EDT HealthTrackRx at LabPortMYCOPLASMA GENITALIUMNot Vkmkevif13.961 - 24.689 ppm 11/21/2024 6:55 AM EDTHealthTrackRx at LabPortSpecimen (Source)Anatomical Location / LateralityCollection Method / VolumeCollection TimeReceived Time Isaziw5011/20/2024 12:08 PM EDT11/21/2024 2:30 AM EDT Narrative Authorizing ProviderResult TypeResult StatusCorey Montez DOLAB BLOOD ORDERABLES Final ResultPerforming OrganizationAddressCity/State/ZIP CodePhone Number [facility]Port [address] [address] * Pap Smear (02/14/2022 12:00 AM EDT)Specimen (Source)Anatomical Location / LateralityCollection Method / VolumeCollection TimeReceived TimeSwabCervical swab / Unknown Narrative Authorizing ProviderResult TypeResult StatusFazio Nurse Noms Bcp ObLAB CYTOLOGY ORDERABLESFinal ResultPerforming OrganizationAddressCity/State/ZIP CodePhone Number EXTERNAL LAB from Last 3 Months or Most Recently Relevant to Health Maintenance Insurance Care Teams Team MemberRelationshipSpecialtyStart DateEnd Penelope Casas MD [address] [place] [address] PCP - GeneralFamily Medicine11/07/23
--- OUTSIDE RECORDS SUMMARY | 2025-02-17 13:22 | XMS_ITS | Encounter Summary ---
Author Organization [facility] Address [address] [place] [address] Care Team Providers Care Senior Web Engineer Name Role Phone Jonny Wilcox MD Unavailable [phone] Cosmo Elliott MD Unavailable [phone] Davida Restrepo RN Unavailable [phone] Evans Casas DO Primary Care Provider [phone] Source Comments In the event this information is protected by the Federal Confidentiality of Alcohol and Drug AbusePatient Records regulations: The Federal rules restrict any use of the information to criminally investigate or prosecute any alcohol or drug abuse patient.[facility] Reason for Visit * ReasonCommentsFatigue Encounter Details DateTypeDepartmentCare Team (Latest Contact Info)Uhtromkmfrc70/02/2025Telephone Hematology/Oncology [address] [place] [address] [place] [address] Rachael Johnson RN Fatigue Social History Tobacco UseTypesPacks/DayYears UsedDateSmoking Tobacco: NeverSmokeless Tobacco: NeverAlcohol UseStandard Drinks/WeekCommentsNo0 (1 standard drink = 0.6 oz pure alcohol)PHQ-2AnswerDate RecordedPHQ-2 ujwvu3314Area Deprivation Index AnswerDate RecordedNational Score (1-100), lower number is lower risk58 09/28/2022State Score (1-10), lower number is lower [id number] from: https://www.neighborhoodatlas.medicine.[facility]/. 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 Encouraged to call back to discuss Rachael Johnson RN * Telephone Encounter - 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 APRN.CNP - 02/05/2025 9:57 AM EDT Please call patient with update on what her OB recommended. ThanksKatherine APRN.TOR * Telephone Encounter - Rachael Johnson RN - 01/29/2025 10:53 AM EDT Pt called to report increased fatigue. She states the first day of increasing the lovenox to 40 mg BID from daily, she was really tired. Yesterday improved and today she is again really run down. Reviewed labs from 12/23/24, as she thought her iron labs had not recently been checked. No abnormal bleeding or bruising. Encouraged to call OB to discuss Providers: Thoughts? Rachael Johnson RN documented in this encounter Plan of Treatment DateTypeDepartmentCare Team (Latest Contact Info)Nmyqczfouah27/03/2025 11:15 AM ESTOffice Visit [facility] [address] [place] [address] lab03/02/2025 11:30 AM ESTVisit (SP) Office Hematology/Oncology [address] [place] [address] 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 APRN.BUILDING PERFORMANCE CONSULTANT [address] [place] [address] 2 month follow updocumented as of this encounter Visit Diagnoses Not on filedocumented in this encounter Care Teams Team MemberRelationshipSpecialtyStart DateEnd Date Evans Casas DO [address] [place] [address] PCP - GeneralFamily Kgztfssq35/3/22 Jonny Wilcox MD [address] [place] [address] Primary Staff PhysicianCardiology07/16/18 [place] [address] [place] [address] PhysicianHematology/Oncology09/14/21 Davida Restrepo RN [address] [place] [address] Specialty Care CoordinatorHematology/Oncology09/14/21documented as of this encounter
--- OUTSIDE RECORDS SUMMARY | 2025-02-17 13:22 | XMS_ITS | Encounter Summary ---
Author Organization [facility] Address [address] [facility] [place] [address] Care Team Providers Care Diesel Truck Driver Name Role Phone Evans Casas MD Primary Care Provider [phone] Encounter Details DateTypeDepartmentCare Team (Latest Contact Info)Oykhpdxrsfb93/13/2025bstract NOMJaylan COLVIN [address] [place] [address] Wilton Herrmann DO [address] [place], [facility]11 Social History Tobacco UseTypesPacks/DayYears UsedDateSmoking Tobacco: NeverSmokeless Tobacco: NeverAlcohol UseStandard Drinks/WeekCommentsNever0 (1 standard drink = 0.6 oz pure alcohol)PHQ-2AnswerDate RecordedPatient Health Questionnaire-2 Score0 01/06/2025Estimated Date of DbrtczzfAncymuvrGpx06/05/2026ased on last menstrual period of 07/28/2024Sex and Gender InformationValueDate RecordedSex Assigned at BirthNot on fileLegal ZrrUoxvmx44/15/2023 11:19 PM EDTGender IdentityNot on fileSexual OrientationNot on filedocumented as of this encounter Plan of Treatment DateTypeDepartmentCare Team (Latest Contact Info)Ejdwzuodjtd00/27/2025 9:00 AM EDTRoutine NOMS Piyush COLVIN [address] [place] [address] Wilton Herrmann, [address] [place] [address] documented as of this encounter Visit Diagnoses Not on filedocumented in this encounter Care Teams Team MemberRelationshipSpecialtyStart DateEnd Date Evans Casas MD [address] [place] [address] PCP - GeneralFamily Medicine11/07/23documented as of this encounter
--- OUTSIDE RECORDS SUMMARY | 2025-02-17 13:22 | XMS_ITS | Clinical Summary ---
Author Organization [facility] Address [address] [place] [address] Care Team Providers Care Shoulder Joiner Name Role Phone Jonny Wilcox MD Unavailable [phone] Cosmo Elliott MD Unavailable [phone] Davida Restrepo RN Unavailable [phone] Evans Casas DO Primary Care Provider [phone] Allergies Active AllergyReactionsCriticalityNoted DateCommentsCiprofloxacinOther: See Comments,Cryahth6305/19/2019 Dizziness, weakness sweating Ciprofloxacin-FluocinoloneOther: See Cgcthjpo78/20/2020 Dizziness, weakness sweating LactalbuminUnknown,GI XexexNeg69/26/2018 Crampy and gassy LactoseGI Upset09/10/2017 Diarrhea MilkOther: See EfihyyujZjv28/26/2018 Crampy and gassy Diarrhea Other reaction(s): GI Upset Crampy and gassy Milk Containing Products (Dairy)Other: See DdyjmotrWfd77/26/2018 Crampy and gassy Diarrhea Other reaction(s): GI Upset Crampy and gassy Seasonal AllergiesGI Upset,Other: See Ksrfkjya29/06/2021 Medications MedicationSigDispense QuantityRefillsLast FilledStart DateEnd DateStatus multivitamin tablet Take 1 tablet by mouth once daily.Active metFORMIN ER (GLUCOPHAGE XR) 500 mg 24 hr tablet 03/26/2022ctive progesterone vaginal suppository 200 mg (CPD) Use 200 mg vaginally. Unwrap and insert as directed.Active polyethylene glycol 3350 (MIRALAX PO) Take by mouth.Active docusate sodium (COLACE PO) Take by mouth.Active enoxaparin (LOVENOX) 40 mg/0.4 mL Indications:Primary hypercoagulable state (HCC),CVA, old, speech/language deficit,Cerebral hyponatremiaINJECT 1 SYRINGE SUBCUTANEOUSLY EVERY 24 HOURS 90 mL 10/29/2024tive levothyroxine (SYNTHROID) 25 mcg tablet TAKE 1 TABLET BY MOUTH IN THE MORNING BEFORE MEAL(S)Active Active Problems ProblemNoted DateDiagnosed DateAntiphospholipid antibody cldnhmde58/29/2025 Vitamin D /29/2025Primary hypercoagulable state08/01/2022VA, old, speech/language ruosbfq1108/01/2022Iron deficiency anemia secondary to blood loss (chronic)03/27/2022Iron deficiency anemia of qowupusqy07/28/2022nti-cardiolipin antibody ydbczczn69/29/2018Migraine with aura and without status migrainosus, not qgeiwwupjnj71/16/2018Antiphospholipid antibody /14/2018Fatigue 12/29/2016Pain in joint12/29/2016Estimated Date of DeliveryCommentsYes 07/28/2024 Encounters DateTypeDepartmentCare DonsNivzjnepert56/02/2025Telephone Hematology/Oncology [address] [place] [address] [place] [address] Rachael Johnson RN Mbpzehp7601/26/2025Telephone Hematology/Oncology [address] [place] [address] [place] [address] Rachael Johnson RN 12/23/2024 11:30 AM EDTVisit (SP) Office Hematology/Oncology [address] [place] [address] [place] [address] 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, VICTOR HUGO.SOAKER Antiphospholipid antibody positive (Primary Dx); Iron deficiency anemia secondary to blood loss (chronic); Vitamin D deficiency; Primary hypercoagulable state (HCC)12/23/2024Travelfrom Last 3 Months Immunizations ImmunizationAdministration DatesNext Duetetanus diphtheria pertussis (Tdap) vaccine, age 7+ yr (ADACEL, BOOSTRIX)07/03/2014 Family History * Patient is adopted Medical HistoryRelationCommentsOtherDaughtersacral dimple, frbrous tisse of tail boneDiabetesFatherType 2StrokeFatherMultiple SclerosisMaternal AuntHeartMaternal GrandfatherOtherMotherSpinabifidaDiabetesPaternal Grandfathertype 2Diabetes Paternal Grandmothertype 2DiabetesSistertype 2RelationStatusCommentsDaughter AliveFatherAliveMaternal AuntMaternal GrandfatherMotherAlivePaternal Grandfather Paternal GrandmotherSisterSonAlive Social History Tobacco UseTypesPacks/DayYears UsedDateSmoking Tobacco: NeverSmokeless Tobacco: Never Tobacco Cessation:Counseling Given: Yes Alcohol UseStandard Drinks/WeekCommentsNo0 (1 standard drink = 0.6 oz pure alcohol)PHQ-2AnswerDate RecordedPHQ-2 jbmhk1194Area Deprivation Index AnswerDate RecordedNational Score (1-100), lower number is lower risk58 09/28/2022State Score (1-10), lower number is lower gabz0793Data from: https://www.neighborhoodatlas.trihealth.[facility].edu/. Last address used for [address]Estimated Date of DeliveryCommentsYes 07/28/2024Sex and Gender InformationValueDate RecordedSex Assigned at BirthNot on fileLegal WszTergvm30/29/2018 10:06 AM ESTGender IdentityNot on fileSexual OrientationNot on fileOccupationIndustryJob Start DateJob End Datestay at home momNot on fileNot on fileNot on file Last Filed Vital Signs Vital SignReadingTime TakenCommentsBlood Fmuwezvk786/6908 11:34 AM EDT Aeefg7016/26/2025 11:34 AM SFTWbfnfhnlzmv36.4 ??C (97.6 ??F)12/23/2024 11:34 AM EDTRespiratory Zjwe933512/23/2024 11:34 AM EDTOxygen Vvryulouyz04%12/23/2024 11:34 AM EDTInhaled Oxygen Concentration--Xncbtx89.4 kg (208 lb 1.8 oz)12/23/2024 11:34 AM LUVWfnyca395.7 cm (5' 6.02 )12/23/2024 11:34 AM EDTBody Mass Index33.57 12/23/2024 11:34 AM EDT Plan of Treatment DateTypeDepartmentCare Team (Latest Contact Info)Mcibfajugyh94/03/2025 11:15 AM ESTOffice Visit [facility] [address] [place] [address] lab03/02/2025 11:30 AM ESTVisit (SP) Office Hematology/Oncology [address] [place], [place] [phone] 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, HAT BRIM AND CROWN LAMINATING OPERATOR.SOAKER [address] [place] [address] 2 month follow upHealth MaintenanceDue DateLast DoneCommentsAnxiety Screening 10/22/2003Depression Ecfsdkzdl03/24/2004HIV Ixfealfje00/24/2004Hepatitis C Lmxywdbhb60/24/2004Hepatitis B Vaccine (1 of 3 - 19+ 3-dose series)2004HPV Vaccine (1 - 3-dose SCDM series)2012Cervical Cancer Wsvovqrjn75/07/2021 12/04/2017DTaP,Tdap,Td Vaccine (2 - Td or Tdap)Covid-19 Vaccine ( - season)2024Influenza Vaccine (#1) (Patient/Parent/Guardian Counseled and Declines)RSV Vaccine (1 - 1-dose 75+ series)2060 Procedures Procedure NamePriorityDate/TimeAssociated DiagnosisCommentsVITAMIN B12 BLOOD Hkvnhzc7512/23/2024 11:28 AM EDT Primary hypercoagulable state (HCC) CVA, old, speech/language deficit Cerebral hyponatremia Personal history of TIA (transient ischemic attack) IRON + ZRBLTzmguiq65/26/2025 11:28 AM EDT Primary hypercoagulable state (HCC) CVA, old, speech/language deficit Cerebral hyponatremia Personal history of TIA (transient ischemic attack) FERRITIN UTKWzwnrnv21/ 11:28 AM EDT Primary hypercoagulable state (HCC) CVA, old, speech/language deficit Cerebral hyponatremia Personal history of TIA (transient ischemic attack) COMPREHENSIVE METABOLIC NWAHUSikfgzr08/26/2025 11:28 AM EDT Primary hypercoagulable state (HCC) CVA, old, speech/language deficit Cerebral hyponatremia Personal history of TIA (transient ischemic attack) CBC + CJCFFemqsmv56/26/2025 11:28 AM EDT Primary hypercoagulable state (HCC) CVA, old, speech/language deficit Cerebral hyponatremia Personal history of TIA (transient ischemic attack) from Last 3 Months Results * VITAMIN B12 (12/23/2024 11:28 AM EDT)ComponentValueRef RangeTest Method Analysis TimePerformed AtPathologist SignatureVitamin [id number] - 1,245 pg/mL 12/23/2024 7:00 PM [facility] LABSpecimen (Source) Anatomical Location / LateralityCollection Method / VolumeCollection Time Received TimeBloodBLOOD SPECIMEN / UnknownVenipuncture / Llbenxy8612/23/2024 11:28 AM EDT12/23/2024 11:28 AM EDT Narrative Authorizing ProviderResult TypeResult StatusHolly Arsh OCHOACNPLABORATORY Final ResultPerforming OrganizationAddressCity/State/ZIP CodePhone Number [facility] [address] * (ABNORMAL) IRON AND TIBC (12/23/2024 11:28 AM EDT)ComponentValueRef RangeTest MethodAnalysis TimePerformed AtPathologist KteukgliiMyew8955 - 186 ug/dL 12/23/2024 6:45 PM [facility]PRE[facility] TNCEXHH830(H)232 - 386 ug/dL12/23/2024 6:45 PM [facility] LABTransferrin Rpzsrcmncr02.315.0 - 57.0 %12/23/2024 6:45 PM [facility] LABSpecimen (Source)Anatomical Location / LateralityCollection Method / Volume Collection TimeReceived TimeBloodBLOOD SPECIMEN / UnknownVenipuncture / Eqyopps7412/23/2024 11:28 AM EDT12/23/2024 11:28 AM EDT Narrative Authorizing ProviderResult TypeResult Status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 APRN.CNPLABORATORY Final ResultPerforming OrganizationAddressCity/State/ZIP CodePhone Number [facility] [address] [place] [address], * FERRITIN (12/23/2024 11:28 AM EDT)ComponentValueRef RangeTest MethodAnalysis TimePerformed AtPathologist MowsixblcZaykpizw17.514.7 - 205.1 ng/mL12/23/2024 7:00 PM EDTCCLEVEL[facility] LABSpecimen (Source)Anatomical Location / LateralityCollection Method / VolumeCollection TimeReceived Time BloodBLOOD SPECIMEN / UnknownVenipuncture / Wmvguec8112/23/2024 11:28 AM EDT 12/23/2024 11:28 AM EDT Narrative Authorizing ProviderResult TypeResult Chester Caban APRN.CNPLABORATORY Final ResultPerforming OrganizationAddressCity/State/ZIP CodePhone Number [facility] [address] [place] [address], * (ABNORMAL) COMPREHENSIVE METABOLIC PANEL (12/23/2024 11:28 AM EDT)Component ValueRef RangeTest MethodAnalysis TimePerformed AtPathologist Signature Protein, Total6.76.3 - 8.0 g/dL12/23/2024 11:56 AM EDTNORTHCOAST [facility] LABAlbumin4.13.9 - 4.9 g/dL12/23/2024 11:56 AM EDTNORTHCOAST [facility] LABCalcium, Total9.58.5 - 10.2 mg/dL12/23/2024 11:56 AM EDTNORTHCST [facility] LABBilirubin, Total0.20.2 - 1.3 mg/dL 12/23/2024 11:56 AM EDTNORTVIB[facility] LABAlkaline Lymkredhtwh1022 - 123 U/L12/23/2024 11:56 AM [facility] KUULXA31(L)13 - 35 U/L12/23/2024 11:56 AM [facility] DEYTOU209 - 38 U/L12/23/2024 11:56 AM [facility] WGOTycnqqg334(H)74 - 99 mg/dL12/23/2024 11:56 AM [facility] LABComment: The [place] Diabetes Association (ADA) provides guidance for cutoff values for fasting glucose andrandom glucose. The ADA defines fasting as no [...] [place] Diabetes Association. Diabetes Care. 2016.39(Suppl 1). BUN77 - 21 mg/dL12/23/2024 11:56 AM [facility] LAB Creatinine0.54(L)0.58 - 0.96 mg/dL12/23/2024 11:56 AM [facility] HYEInbzzd172(L)136 - 144 mmol/L12/23/2024 11:56 AM [facility] LABPotassium4.03.7 - 5.1 mmol/L12/23/2024 11:56 AM [facility] KGXSrdgxslw7353 - 107 mmol/L12/23/2024 11:56 AM [facility] ZXFCP493(L)22 - 30 mmol/L12/23/2024 11:56 AM [facility] LABAnion Jtm987 - 15 mmol/L 12/23/2024 11:56 AM [facility] LABEstimated Glomerular Filtration Bxvh191>=60 mL/min/1.73m 12/23/2024 11:56 AM [facility] LABComment:Estimated Glomerular Filtration Rate (eGFR) is calculated using the 2020 CKD-EPI creatinine equation. This equation utilizes serum creatinine, sex, and age as parameters. The creatinine assay has traceable calibration to isotope dilution- mass spectrometry. Refer to KDIGO guidelines for clinical interpretation. In patients with unstable renal function, e.g. those with acute kidney injury, the eGFRmay not accurately reflect actual GFR.Specimen (Source)Anatomical Location / LateralityCollection Method / VolumeCollection TimeReceived TimeBloodBLOOD SPECIMEN / UnknownVenipuncture / Dtruret6512/23/2024 11:28 AM EDT12/23/2024 11:28 AM EDT Narrative Authorizing ProviderResult TypeResult StatusHolly Arsh HATHAWAYN.CNPLABORATORY Final ResultPerforming OrganizationAddressCity/State/ZIP CodePhone Number [facility] [address] [place] [address] * (ABNORMAL) COMPLETE BLOOD COUNT AND DIFFERENTIAL (12/23/2024 11:28 AM EDT) ComponentValueRef RangeTest MethodAnalysis TimePerformed AtPathologist SignatureWBC8.553.70 - 11.00 k/uL12/23/2024 11:31 AM EDTGRAFTON CITY [facility] LABRBC3.80(L)3.90 - 5.20 m/uL12/23/2024 11:31 AM EDTNORTVIB[facility] YQNOijwyjckwi93.011.5 - 15.5 g/dL12/23/2024 11:31 AM [facility] FBGEokcqmjyri31.6(L)36.0 - 46.0 % 12/23/2024 11:31 AM EDTNORTVIBRA [facility] OATQCT30.180.0 - 100.0 fL12/23/2024 11:31 AM [facility] SWUSKF21.6 26.0 - 34.0 pg12/23/2024 11:31 AM [facility] LABMCHC 34.730.5 - 36.0 g/dL12/23/2024 11:31 AM [facility] LABRDW-CV13.511.5 - 15.0 %12/23/2024 11:31 AM [facility] LABPlatelet Dulma624786 - 400 k/uL12/23/2024 11:31 AM [facility] LABMPV9.79.0 - 12.7 fL12/23/2024 11:31 AM [facility] LABNeutrophils %65.1%12/23/2024 11:31 AM [facility] LABAbs Neut5.571.45 - 7.50 k/uL12/23/2024 11:31 AM EDT [facility] LABLymphocytes %28.7%12/23/2024 11:31 AM EDT [facility] LABAbs Lymph2.451.00 - 4.00 k/uL12/23/2024 11:31 AM [facility] LABMonocytes %5.1%12/23/2024 11:31 AM [facility] LABAbs Mono0.44<0.87 k/uL 12/23/2024 11:31 AM [facility] LABEosinophils %0.4% 12/23/2024 11:31 AM [facility] LABAbs Eosin0.03<0.46 k/uL12/23/2024 11:31 AM [facility] LABBasophils %0.2 %12/23/2024 11:31 AM [facility] LABAbs Baso<0.03 <0.11 k/uL12/23/2024 11:31 AM [facility] LABImmature Granulocytes %0.5%12/23/2024 11:31 AM [facility] LAB Abs Immature Gran0.04<0.10 k/uL12/23/2024 11:31 AM [facility] LABNRBC0.0/100 WBC12/23/2024 11:31 AM [facility] LABAbsolute nRBC<0.01<0.01 k/uL12/23/2024 11:31 AM [facility] LABDiff RykzYkms94/26/2025 11:31 AM [facility] LABSpecimen (Source)Anatomical Location / Laterality Collection Method / VolumeCollection TimeReceived TimeBloodBLOOD SPECIMEN / UnknownVenipuncture / Ezkvunc6912/23/2024 11:28 AM EDT12/23/2024 11:28 AM EDT Narrative Authorizing ProviderResult TypeResult StatusHolly Arsh HAT BRIM AND CROWN LAMINATING OPERATOR.CNPLABORATORY Final ResultPerforming OrganizationAddressCity/State/ZIP CodePhone Number [facility] [address] [place] [address] from Last 3 Months Insurance Care Teams Team MemberRelationshipSpecialtyStart DateEnd Date Evans Casas DO [address] [facility] [address] [place] [address] PCP - GeneralFaedward p. [facility] Wdkeglkk52/3/22 Jonny Wilcox MD [address] [place] [address] Primary Staff PhysicianCardiology07/16/18 [place] [address] [place] [address] PhysicianHematology/Oncology09/14/21 Davida Restrepo, RN [address] [place] [address] Specialty Care CoordinatorHematology/Oncology09/14/21
--- OUTSIDE RECORDS SUMMARY | 2025-02-17 13:22 | XMS_ITS | Encounter Summary ---
Author Organization [facility] Address [address] [place] [address] Care Team Providers Care Portainer Operator Name Role Phone Evans Casas MD Primary Care Provider [phone] Encounter Details DateTypeDepartmentCare Team (Latest Contact Info)Caepdldsajv20/07/2025Patient Outreach [facility] [address] [place] [address] Petra Whitmore LPN [address] [place] [address] Social History Tobacco UseTypesPacks/DayYears UsedDateSmoking Tobacco: NeverSmokeless Tobacco: NeverAlcohol UseStandard Drinks/WeekCommentsNever0 (1 standard drink = 0.6 oz pure alcohol)PHQ-2AnswerDate RecordedPatient Health Questionnaire-2 Score0 01/06/2025Estimated Date of YxierffsIdgshjdqZhc34/05/2026ased on last menstrual period of 07/28/2024Sex and Gender InformationValueDate RecordedSex Assigned at BirthNot on fileLegal VnxThrkdx23/15/2023 11:19 PM EDTGender IdentityNot on fileSexual OrientationNot on filedocumented as of this encounter Progress Notes * Petra Whitmore LPN - 02/03/2025 10:44 AM EDT Monthly Outreach. Call to pt Emy, LVM documented in this encounter Plan of Treatment DateTypeDepartmentCare Team (Latest Contact Info)Gipjvfyzglc93/27/2025 9:00 AM EDTRoutine NOMS Piyush COLVIN [address] [facility] [id number] Wilton Herrmann DO [address] [place] [address] documented as of this encounter Visit Diagnoses Not on filedocumented in this encounter Care Teams Team MemberRelationshipSpecialtyStart DateEnd Date Evans Casas MD [address] [place] [address] PCP - GeneralFamily Medicine11/07/23documented as of this encounter
--- OUTSIDE RECORDS SUMMARY | 2025-02-17 13:22 | XMS_ITS | Encounter Summary ---
Author Organization [facility] tem Address [facility] [id number] [address] [place] [address] Care Team Providers Care Furnace Clerk Name Role Phone Evans Casas DO Primary Care Provider [phone] Encounter Details DateTypeDepartmentCare Team (Latest Contact Info)Mcoxszroxib97/14/2025Telephone Maternal- Medicine at [facility] [address] [place] [phone] Annita Kendall, LD [address] [place] [address] Social History Tobacco UseTypesPacks/DayYears UsedDateSmoking Tobacco: NeverSmokeless Tobacco: NeverAlcohol UseStandard Drinks/WeekCommentsNot Currently0 (1 standard drink = 0.6 oz pure alcohol)ChildcareAnswerDate SqgithekCumxuqbwvJbjdczd30/31/2019 EmploymentAnswerDate GxbrgirwAqmnrddsewGiwwplu97/31/2019Hunger ScreeningAnswer Date RecordedWithin the past 12 months we worried whether our food would run out before we got money to buy more.Never True01/01/2025Within the past 12 months the food we bought just didn't last and we didn't have money to get more.Never True01/01/2025Purpose - LifeAnswerDate RecordedPurpose and direction in life Wjdxhlu05/11/2021Estimated Date of FrrdsbtsQhfaklqqPam49/05/2026Based on last menstrual period of 07/28/2024Sex and Gender InformationValueDate Recorded Sex Assigned at BirthNot on fileLegal GovGpghoz81/31/2019 12:25 PM EDTGender IdentityNot on fileSexual OrientationNot on filedocumented as of this encounter Miscellaneous Notes * Telephone Encounter - PRISCILLA Sutherland - 02/10/2025 11:54 AM EDT Called regarding blood sugar logs from 02/02/25 [...] to her snack sheet and try the onesthat have an asterisk. Continue to send in blood sugars weekly. documented in this encounter Plan of Treatment DateTypeDepartmentCare Team (Latest Contact Info)Ihhfciducvf13/11/2025 8:00 AM ESTTelemedicine Maternal- Medicine at [facility] [id number] [place] [address] Sana Palma MD [address] [place] [address] 03/17/2025 8:30 AM ESTTelemedicine [facility] A Department of [facility] [address] [place] [phone] Sam Callahan MD MPH [address] [address] documented as of this encounter Visit Diagnoses Not on filedocumented in this encounter Care Teams Team MemberRelationshipSpecialtyStart DateEnd Date Evans Casas DO PCP - GeneralFamily Medicine07/07/19documented as of this encounter
--- OUTSIDE RECORDS SUMMARY | 2025-02-17 13:22 | XMS_ITS | Encounter Summary ---
Author Organization [facility] tem Address [facility] [place] [place] [address] Care Team Providers Care Pantry Goods Maker Name Role Phone Evans Casas DO Primary Care Provider [phone] Encounter Details DateTypeDepartmentCare Team (Latest Contact Info)Ztiuizdkntm30/20/2025Travel Social History Tobacco UseTypesPacks/DayYears UsedDateSmoking Tobacco: NeverSmokeless Tobacco: NeverAlcohol UseStandard Drinks/WeekCommentsNot Currently0 (1 standard drink = 0.6 oz pure alcohol)ChildcareAnswerDate DoiyybikRfzmdleqpNkcrinz94/31/2019 EmploymentAnswerDate WlccyzniRzygrluzzhQgsoldc47/31/2019Hunger ScreeningAnswer Date RecordedWithin the past 12 months we worried whether our food would run out before we got money to buy more.Never True01/01/2025Within the past 12 months the food we bought just didn't last and we didn't have money to get more.Never True01/01/2025Purpose - LifeAnswerDate RecordedPurpose and direction in life Txnnlkk68/11/2021Estimated Date of DoorhhxwFjyrdkcfMbq64/05/2026Based on last menstrual period of 07/28/2024Sex and Gender InformationValueDate Recorded Sex Assigned at BirthNot on fileLegal YehFudtme17/31/2019 12:25 PM EDTGender IdentityNot on fileSexual OrientationNot on filedocumented as of this encounter Plan of Treatment DateTypeDepartmentCare Team (Latest Contact Info)Qjyjqcbgphc47/11/2025 8:00 AM ESTTelemedicine Maternal- Medicine at [facility] [address] [place] [address] Sana Palma MD [address] [place] [address] 03/17/2025 8:30 AM ESTTelemedicine [facility], A Department of [address] [address] Sam Callahan MD [address] [address] documented as of this encounter Visit Diagnoses Not on filedocumented in this encounter Care Teams Team MemberRelationshipSpecialtyStart DateEnd Date Evans Casas DO PCP - GeneralFamily Medicine07/07/19documented as of this encounter
--- OUTSIDE RECORDS SUMMARY | 2025-02-17 13:22 | XMS_ITS | Clinical Summary ---
Author Organization [facility] Address [address], [address] [place] [address] Care Team Providers Care Dial Printer Name Role Phone Evans Casas DO Primary Care Provider Allergies Active AllergyReactionsCriticalityNoted DateCommentsCiprofloxacinOther (See Comments)06/19/2019Ciprofloxacin-Fluocinolone PfOther (See Comments)05/19/2019 Dizziness, weakness sweating Environmental/SeasonalOther (See Comments)05/05/2020Milk-Related CompoundsOther (See Comments)Low05/25/2017 Crampy and gassy Diarrhea Other reaction(s): GI Upset Crampy and gassy Medications MedicationSigDispense QuantityRefillsLast FilledStart DateEnd DateStatus levothyroxine (SYNTHROID) 25 MCG tablet Take 1 tablet by mouth DailyActive Vit-Fe Fumarate-FA ( PO) Take 1 tablet by mouth10/31/2018Active enoxaparin (LOVENOX) 40 MG/0.4ML injection Inject 0.4 mLs into the skin daily 16 mL Active metFORMIN (GLUCOPHAGE-XR) 500 MG extended release tablet Take 1 tablet by mouth daily (with breakfast)2Active Active Problems ProblemNoted DateDiagnosed DateAcute on chronic vesicular eczema of hands and feet12/11/2023lood pressure elevated without history of HTN12/11/2023ry mouth 12/11/2023Environmental guzogpipz58/13/2024H/O: frgurdyxuhpowc70/13/2024History of cdbttt6312/11/2023History of gestational yuihnqxv50/13/2024History of kidney wntuhl1012/11/2023Hx of iron deficiency esmfpk2912/11/2023Immunization not carried out because of patient esbyminc08/13/2024Morbid pltvklw5912/11/2023Non-smoker 12/11/2023OSA (obstructive sleep apnea)12/11/2023ight otitis ncyqqkq0212/11/2023 Abdominal pain06/12/2023cute bronchitis due to odwzikscq92/13/2024nxiety 06/12/2023ysfunction of eustachian tube06/12/20231852Yltqugb64/13/2024Hematochezia 06/12/2023History of severe acute respiratory syndrome coronavirus 2 (SARS-CoV-2) zgydmnv9506/12/20239557Tolvmgwqdvwd41/13/2024Inhalation omaelr6506/12/2023 tvxtait7206/12/2023sychogenic xnyxkdavkfdgyzdj33/13/2024Suspected severe acute respiratory syndrome coronavirus 2 (SARS-CoV-2) rsrqvengf06/13/2024 Primary hypercoagulable state08/01/2022estational diabetes mellitus in , unspecified rcpnrhw5201/26/2022Genitourinary zhkoqzzn58/22/2022Muscle syiibyiffukdc00/22/2022TIA (transient ischemic attack)06/16/2020erebrovascular accident (CVA) due to stenosis of middle cerebral jfognz8902/22/2020Anticoagulant long-term use02/22/2020Acute posthemorrhagic kxuoix2001/16/202039 weeks gestation of ojphtofsc66/18/2020Anemia complicating bpxgrfftof40/18/2020Endocrine, nutritional and metabolic diseases complicating ahueiuppcq55/18/2020First degree perineal laceration during isqpkngy54/18/2020Other immediate uxjfjduupj94/18/2020Personal history of transient ischemic attack (TIA), and cerebral infarction without residual jngfmgbu75/18/2020Personal history of urinary (tract) tiyvswptxj44/18/2020Single live birth01/15/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01/08/202038 weeks gestation of /09/2020Pruritus, cuaygkmckee91/04/202037 weeks gestation of aasrvlepa15/04/989273 weeks gestation of wezvfyuar16/01/2020Other speech and language deficits following cerebral nzccacyvob39/01/2020Other diseases of the blood and blood-forming organs and certain disorders involving the immune mech anism complicating ouvoqohgrm72/25/780412 weeks gestation of hmmghubmr91/24/2020 34 weeks gestation of rvferssxd11/18/745963 weeks gestation of 12/10/201932 weeks gestation of hyuaujegu49/31/2020Thrombocytopenia, unspecified 11/20/2019Other general symptoms and signs10/28/2019Urinary tract infection, site not yzwakdzcl15/18/5843Crqttjticxnk37/28/2020SVT (supraventricular tachycardia)08/26/2019Antiphospholipid antibody aqwhxtpq25/09/2020Other bacterial infections of unspecified site06/27/2019Less than 8 weeks gestation of teagyzppg98/06/2020Encounter for supervision of normal , unspecified, first mtaapildg46/30/3222Vqmdktupdagc76/17/2020Cerebral infarction, unspecified 05/16/2019Paresthesia of skin05/16/2019Deficiency of other specified B group fifaghcm94/17/2020Hypothyroidism, zgtciuvbrak95/17/2020Unspecified condition associated with female genital organs and menstrual cycle05/09/2019Vomiting of , zdchmbzockk86/06/2020Other specified noninflammatory disorders of mzdaut9502/21/2019Frequency of zminpuoaqoh38/23/2019Unspecified ovarian cyst, right side02/06/2019Coagulation defect, kljpxzbjojf39/09/2019Cervicalgia 02/05/2019Long term (current) use of 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/cfzawyddeadev21/09/2019 Dizziness and wkgmijkeg11/09/2019Other acute postprocedural pain02/03/2019Pelvic and perineal pain02/01/2019Syncope and mhnopfjd69/04/2019Anticardiolipin antibody fgnphpgo96/29/2018Migraine without aura and without status migrainosus, not fypjnagkgxp24/16/2018Antiphospholipid antibody ydhwxpzt62/14/2018Pain in joint12/29/20166118Trwtfsw61/01/2017Idiopathic progressive fsbeoipyny28/01/2017 Resolved Problems ProblemNoted DateDiagnosed DateResolved LjbsJtesq42/ Encounters DateTypeDepartmentCare IhyfZmkcdtbbips40/24/2025 2:30 PM EDTOffice Visit [facility] [address] [place] [address] [place] [phone] Peng Osorio MD Antiphospholipid antibody syndrome (Primary Dx); Cerebrovascular accident (CVA) due to stenosis of middle cerebral artery, unspecified blood vessel laterality (HCC); TIA (transient ischemic attack); Migraine without aura and without status migrainosus, not intractable; Coagulation defect, unspecifiedfrom Last 3 Months Social History Tobacco UseTypesPacks/DayYears UsedDateSmoking Tobacco: NeverSmokeless Tobacco: Never Tobacco Cessation:Counseling Given: Not Answered Alcohol UseStandard Drinks/WeekCommentsNot Currently0 (1 standard drink = 0.6 oz pure alcohol)occasionallyCommentsNoSex and Gender InformationValueDate RecordedSex Assigned at BirthNot on fileLegal GqfYxhttg99/14/2017 2:04 PM EDT Gender IdentityNot on fileSexual OrientationNot on file Last Filed Vital Signs Vital SignReadingTime TakenCommentsBlood Brpiwmoh177/6409 2:40 PM EDT Annmp915001/21/2025 2:40 PM YNAIrnrefkxyxe27.2 ??C (97.2 ??F)02/09/2022 11:22 AM EDTRespiratory Mxul8393 11:22 AM EDTOxygen Yfqtfydzfo16%10/04/2020 2:01 PM EDTInhaled Oxygen Concentration--Vjeffe69.8 kg (209 lb)01/21/2025 2:40 PM EDT Cmukji659.6 cm (5' 6 )02/09/2022 11:22 AM EDTBody Mass Index33.7302/09/2022 11:22 AM EDT Plan of Treatment DateTypeDepartmentCare Team (Latest Contact Info)Vicwgpraurq22/25/2026 1:45 PM EDTOffice Visit [facility] [address] [place] [address] [place] [phone] Peng Osorio MD [address] [place] [address] [place] [id number] [address] FUPHealth MaintenanceDue DateLast DoneCommentsDepression Kseoiu4510/21/1997 Varicella vaccine (1 of 2 - 13+ 2-dose series)1998Hepatitis C screen 10/22/2003Hepatitis B vaccine (1 of 3 - 19+ 3-dose series)2004Pap smear 2006Cervical cancer qbdiyu9410/22/2015HPV (without or with Pap)10/22/2015 DTaP/Tdap/Td vaccine (2 - Td or Tdap)503/09/2014Flu vaccine (#1) 5COVID-19 Vaccine ( season)2024HIV screenCompleted 12/29/2016HPV vaccine (No Doses Required)CompletedHepatitis A vaccineAged OutNo longer eligible based on patient's age to complete this topicHib vaccineAged Out No longer eligible based on patient's age to complete this topicMeningococcal (ACWY) vaccineAged OutNo longer eligible based on patient's age to complete this topicMeningococcal B vaccineAged OutNo longer eligible based on patient's age to complete this topicPneumococcal 0-49 years VaccineAged OutNo longer eligible based on patient's age to complete this topicPolio vaccineAged OutNo longer eligible based on patient's age to complete this topic Procedures Procedure NamePriorityDate/TimeAssociated DiagnosisCommentsHIV-1,-2 W/REFLEX TO HIV-1 WESTERN ISMVMdjdmrz47/01/2017 11:49 AM EDT Arthralgia, unspecified joint Fatigue, unspecified type Sensation disorder from Last 3 Months or Most Recently Relevant to Health Maintenance Results * Hiv-1,-2 W/Reflex To Hiv-1 Western Blot (12/29/2016 11:49 AM EDT)Component ValueRef RangeTest MethodAnalysis TimePerformed AtPathologist Signature HIV-1/HIV-2 KmRblqanomQvptjfiu60/03/2017 12:03 AM [facility] Comment: Based on the non-reactive anti-HIV (BRENDEN) screen, the HIV Western blot is not indicated and therefore not performed. INTERPRETIVE INFORMATION: HIV-1,-2 w/Reflex to HIV-1 Western Blot This assay should not be used for blood donor screening, associated re-entry protocols, or for screening Human Cells, Tissues and Cellular and Tissue-Based Products (HCT/P). Performed by the Shel[facility], [facility] [place] [address] www.[employer], Zhang Bledsoe MD - Lab. Director Specimen (Source)Anatomical Location / LateralityCollection Method / Volume Collection TimeReceived TimeBLOOD SPECIMEN / Cugrbjl7312/29/2016 11:49 AM EDT 12/29/2016 1:50 PM EDT Narrative Authorizing ProviderResult TypeResult StatusRitiki Monroe MDHEMATOLOGY ORDERABLES Final ResultPerforming OrganizationAddressCity/State/ZIP CodePhone Number [facility] [address] [place] [address], [facility] [phone] from Last 3 Months or Most Recently Relevant to Health Maintenance Insurance Care Teams Team MemberRelationshipSpecialtyStart DateEnd Date Evans Casas DO [address] [place] [address] PCP - GeneralFamily Medicine10/04/20
--- OUTSIDE RECORDS SUMMARY | 2025-02-17 13:25 | XMS_ITS | CCD ---
Author Organization [facility] CliniSyla Care Team Providers Care Air Analysis Engineering Technician Name Role Phone CROW MONGE Unavailable Unavailable BIBI CHRISTY Unavailable Unavailable ERIKA LONDON Attending Unavailab ERIKA Haddad Referring Unavailab Haseeb Chavez Attending Unavailable rCow Monge Referring Unavailable Humaira Gaviria MD Primary Care Provider Jonny Wilcox MD Unavailable Penelope CASAS Primary Care Physician Cheri Norwood Unavailable Unavailable Cosmo Elliott MD Unavailable [phone] Lauro RN, Davida Unavailable Penelope Casas Primary Care Provider [phone] PENELOPE CASAS Primary Care Unavailable PERVÍCTOR, TOD C Referring Unavailable Humaira Gaviria MD Primary Care Provider Jonny Wilcox MD Unavailable Cosmo Elliott MD R Unavailable [phone] Lauro RN, Davida Unavailable [phone] Penelope Casas DO Primary Care Provider Jonny [...] Unavailable MONTEZ, DR ROQUE Primary Care Unavailable [place], DR ANGIE Luna Consulting Unavailable MONTEZ, DR ROQUE Consulting Unavailable MONTEZ, DR ROQUE Admitting Unavailable MONTEZ, DR ROQUE Primary Care Unavailable MONTEZ, DR ROQUE Consulting Unavailable MONTEZ, DR ROQUE Attending Unavailable MONTEZ, DR ROQUE Admitting Unavailable MONTEZ, DR ROQUE Consulting Unavailable MONTEZ, DR ROQUE Attending Unavailable MONTEZ, DR ROQUE Primary Care Unavailable MONTEZ, DR ROQUE Admitting Unavailable KARASIK, DR ACUNA Consulting Unavailable OMNTEZ, DR ROQUE Primary Care Unavailable MONTEZ, DR [...] Jonny Tsai Unavailable Lauro RN, Davida Unavailable Penelope Casas DO Primary Care Provider Penelope CASAS Admitting Unavailable KAPBEN, Penelope Tony [...] Unavailable Penelope Casas MD Primary Care Provider [phone] Wilton Herrmann DO Attending Provider [phone] Montez, Wilton Attending Unavailable Montez, Wilton Admitting Unavailable Gudimella, Anni Attending Unavailable Merlindimella, Anni Attending Unavailable KAPBEN, Penelope A Attending Unavailable KAPLE, Penelope A Attending Unavailable MONTEZ, Wilton R Admitting Unavailable MONTEZ, Wilton R Attending Unavailable KAPBEN, Penelope A Admitting Unavailable KAPLE, Penelope Tony Attending Unavailable KAPBEN, Penelope Tony Attending Unavailable KAPLE, Penelope A Attending Unavailable [...] Admitting Unavailable Romulo Chiu Attending Unavailable KAPPenelope CONTRERAS Attending Unavailable MONTEZ, Iwlton R Attending Unavailable MONTEZ, Wilton R Admitting Unavailable JESSICA BACA Attending Unavailabl e Inez Wakefield Attending Unavailable KAPPenelope CONTRERAS Attending Unavailable Penelope Casas DO Primary Care Provider MONTEZ, Wilton R Attending Unavailable MONTEZ, Wilton R Admitting Unavailable MONTEZ, Wilton R Admitting Unavailable MONTEZ, Wilton R Attending Unavailable MONTEZ, Wilton R Attending Unavailable KAPBEN, PENELOPE A Primary Care Unavailable KAPBEN, PENELOPE A Primary Care Unavailable ABHYANKAR, KRISTOFER Referring Unavailable ABHYANKAR, KRISTOFER Attending Unavailable KAPBEN, PENELOPE A Primary Care Unavailable ABHYANKAR, KRISTOFER Referring Unavailable KAPBEN, PENELOPE A Primary Care Unavailable KATHERINE NEGRETE Attending Unavailable ABHYANKAR, KRISTOFER Referring Unavailable KAPBEN, PENELOPE A Primary Care Unavailable KAPBEN, PENELOPE A Primary Care Unavailable KATHERINE NEGRETE Attending Unavailable ABHYANKAR, KRISTOFER Referring Unavailable MONTEZ, WILTON R Referring Unavailable KAPBEN, PENELOPE A Primary Care Unavailable DOCHEVA, NIKOLINA P Attending Unavailable MONTEZ, WILTON R Referring Unavailable KAPLE, PENELOPE A Primary Care Unavailable MONTEZ, WILTON R Referring Unavailable KAPLE, PENELOPE A Primary Care Unavailable MONTEZ, WILTON Attending Unavailable MONTEZ, WILTON Attending Unavailable MONTEZ, WILTON Attending Unavailable MONTEZ, WILTON Attending Unavailable MONTEZ, WILTON Attending Unavailable MONTEZ, WILTON Attending Unavailable MONTEZ, WILTON Attending Unavailable MONTEZ, WILTON Attending Unavailable MONTEZ, WILTON Attending Unavailable MONTEZ, WILTON Attending Unavailable Kaple Penelope ROSARIO Primary Care Provider [phone] MONTEZ, Wilton R Admitting Unavailable MONTEZ, Wilton R Attending Unavailable MONTEZ, Wilton R Referring Unavailable MILLER, CINDY Attending Unavailable MONTEZ, WILTON R Referring Unavailable KAPLE, PENELOPE A Primary Care Unavailable TORI, ALISA Attending Unavailable KAPLE, PENELOPE Tony Referring Unavailable KAPLE, PENELOPE Tony Primary Care Unavailable TORI, ALISA Attending Unavailable KAPLE, PENELOPE Tony Referring Unavailable KAPLE, PENELOPE Tony Primary Care Unavailable TORI, ALISA Attending Unavailable MONTEZ, WILTON R Referring Unavailable KAPLE, PENELOPE Tony Primary Care Unavailable LAVOYROXANA E Attending Unavailable KAPLE, PENELOPE Tony Referring Unavailable KAPLE, PENELOPE Tony Primary Care Unavailable DOCHEVA, NIKOLINA P Attending Unavailable MONTEZ, WILTON R Referring Unavailable KAPLE, PENELOPE A Primary Care Unavailable AMBATI, SAM GARCIA Attending Unavailable DOCHEVA, NIKOLINA P Referring Unavailable KAPLE, PENELOPE A Primary Care Unavailable Allergies Allergy ClassificationReported Allergen(s)Allergy TypeDate of OnsetReaction(s) Facility (20 sources)Ciprofloxacin; Translations: [ciprofloxacin]Drug Jilxnxt02-27-4710 Other: See Comments, Unknown, Numbness and tingling sensation of skin (finding), Nausea (finding), Other (See Comments), GI intolerance, [facility]: (20 sources)Ciprofloxacin / fluocinolone; Translations: [CIPROFLOXACIN-FLUOCINOLONE]Drug Ewyjsia84-07-0971Pymyl: See CommentsOhiohealth [facility]ide [facility] Hospital (20 sources)cow milk allergenic extract; Translations: [MILK]Drug Allergy 03-96-2411Mzsdc: See CommentsOhiohealth [facility]ide [facility] Work Phone: (20 sources)Lactalbumin; Translations: [LACTALBUMIN]Drug Kkfmjzl84-25-0614 Unknown, GI Upset, Other (See Comments)[facility] (20 sources)Lactose; Translations: [LACTOSE]Drug Fqgegva04-98-4543LE Upset, GI DisturbanceOhiohealth [facility]ide [facility] Hospital (20 sources)MilkDrug Ffrlxkg47-88-5512Xvkhi: See Comments, Other (See Comments) [facility] (6 sources)PenicillinsDrug Pjnashf22-58-5048FervnfvGjodsldzb Clinic (20 sources)Seasonal allergy; Translations: [SEASONAL ALLERGIES]Allergy to zhbuzmmbb71-82-7947UE Upset, Other: See CommentsOhiohealth [facility]ide [facility] Hospital Work Phone: (20 sources)Milk Products; Translations: [Milk Products]Drug allergyIllness (finding)[facility] (20 sources)Ciprofloxacin / fluocinoloneDrug Fncjtij45-94-1854Vfdhw (See Comments)[facility] Work Phone: (1 source)Seasonal allergyPropensity to adverse reactions to bajsiguqh04-48-7467 Other (See Comments)[facility] Work Phone: (1 source)Milk-Related CompoundsPropensity to adverse reactions to drug 48-29-1944Jlgac (See Comments)[facility] Work Phone: (2 sources)PenicillinsDrug Tcfhhvs12-01-0622BhxlkqiNoiobffmu Clinic (1 source)CiprofloxacinDrug Afarrwx08-45-1914[facility] (20 sources)Lactose (non-medical use)Propensity to adverse cbmsijzho81-63-6078 [facility] (20 sources)Lactose (non-medical use)Drug Xsmrfmj29-77-4722[facility] (20 sources)OctacosanolDrug Hllznostzek31-04-8883[facility] (20 sources)OtherAllergy to kzdjsiczw00-04-5685KkeryZNDT Healthcare Work Phone: (3 sources)MILK CONTAINING PRODUCTS (DAIRY); Translations: [MILK CONTAINING PRODUCTS (DAIRY)]Propensity to adverse reactions to drug (disorder)05-25-2017 [facility] Repository Medications Current Medications MedicationDrug Class(es)DatesSig (Normalized)Sig (Original)acetaminophen 300 mg / codeine phosphate 30 mg oral tablet (1 source)Opioid AgonistStart: 49-50-8408ngctvheagkook-codeine (TYLENOL #3) 300- 30 MG per tabletAlbuterol (Eqv-ProAir HFA) 90 mcg/inh inhalation aerosol (6 sources)Start: 61-06-9296bvzg 2 puff(s) by inhalation every six hours Albuterol (Eqv-ProAir HFA) 90 mcg/inh inhalation aerosol 2 puff(s), Inhalation, q6hr, 1 EA, Refill(s) 5, [facility], 168, cm, 02/02/24 14:43:00 EDT, Height/Length Dosing, 101.1, kg, 02/02/24 14:43:00 EDT, Weight Dosing Start Date: 02/02/24 Status: Orderedazithromycin 250 mg oral tablet (20 sources)Macrolide AntimicrobialStart: 09-08-2024 End: 39-26-1167hzfdydjcinro (Zithromax Z-Jonny) 250 MG tablet Indications: 5 weeks gestation of ([facility] As directed 6 tablet 09/08/2024 10/30/2024 Discontinued (Therapy completed)Start: 06-19-2024 End: 95-36-8536Jqyhldlvb 250 mg Tab = 1 packet(s), Oral, As Directed, as directed on package labeling, X 5 day(s),# 6 tab(s), Refills(s) 1, Pharmacy: [facility], 168, cm, 06/09/24 14:03:00 EST, Height/Length Dosing, 98.4, kg, 06/19/24 16:19:00 EST, Weight Dosing Start Date: 06/19/24 Stop Date: 06/29/24 Status: OrderedStart: 04-21-2024 End: 14-09-4323nzwlxeicqrob (Zithromax Z-Jonny) 250 MG tablet Indications: Upper respiratory tract infection, unspecified type As directed 6 tablet 04/21/2024 05/06/2024 Discontinuedazithromycin 250 mg Tab 5-day Dose Pack (Z-Jonny) (2 sources)Start: 02-02-2024 End: 82-37-2172marorsanmqlr 250 mg Tab 5-day Dose Pack (Z-Jonny) = 1 packet(s), Oral, As Directed, as directed on package labeling, X 5 day(s), # 6 tab(s), Refills(s) 0, Pharmacy: [facility], 168, cm, 02/02/24 14:43:00 EDT, Height/Length Dosing, 101.1, kg, 02/02/24 14:43:00 EDT, Weight Dosing Start Date:02/02/24 Stop Date: 02/07/24 Status: OrderedBlood Glucose Monitoring Suppl (D-Care Glucometer) w/Device kit (18 sources)Start: 10-30-2024 End: 45-27-7673Vmxiu Glucose Monitoring Suppl (D-Care Glucometer) w/Device kit Indications: Second trimester ([facility]) , 13 weeks gestation of ([facility]) , Multigravida of advanced maternal age in second trimester ([facility]) , Gestational diabetes mellitus (GDM), antepartum, gestational diabetesmethod of control unspecified ([facility]) , Elevated glucose tolerance test 1 kit Daily Use four times daily to check FSBS. In the morning prior to breakfast & 1 hour after each meal for a total vi6tvbzc daily. 1 kit 10/30/2024 10/30/2025 Activeblood-glucose meter (BLOOD GLUCOSE MONITORING) kit (20 sources)blood-glucose meter (BLOOD GLUCOSE MONITORING) kit 1 each by other route in the morning. Use to check blood sugar 4 times daily . Activeblood- glucose sensor (FREESTYLE JENIFER 3 PLUS SENSOR) device (12 sources)Start: 06-72-1485xdnb 2 doses by mouth onceblood-glucose sensor (FREESTYLE JENIFER 3 PLUS SENSOR) device Indications: Gestational diabetes mellit us (GDM) in second trimester controlled on oral hypoglycemic drug Wear for 15 days and change 2 each 6 12/26/2024 Activecephalexin 500 mg oral tablet (20 sources)Cephalosporin AntibacterialStart: 08-19-2021 End: 08-13-4743rqrc 1 tablet by mouth twice dailycephalexin 500 mg oral tablet 500 mg = 1 tab(s), Oral, BID, X 10 day(s), # 20 tab(s), Refills(s) 0,Pharmacy: [facility], 168, cm, 08/19/21 10:50:00 EDT, Height/Length Dosing, 103.6, kg, 08/19/21 10:50:00 EDT, Weight Dosing Start Date: 08/19/21 Stop Date: 08/29/21 Status: OrderedCEPHalexin (KEFLEX) 500 mg capsule Take 1 capsule (500 mg total) by mouth in the morning and 1 capsule (500 mg total) at noon and 1 capsule (500 mg total) in the evening and 1 capsule (500 mg total) before bedtime. Activeciprofloxacin 3 mg/ml / dexamethasone 1 mg/ml otic suspension (2 sources)Corticosteroid, Quinolone AntimicrobialStart: 10-23-2023 End: 72-83-8243Hsxlffsi 0.3%-0.1% Susp-Otic 4 drop(s), Otic, BID for 7 day(s), 7.5 mL, Refill(s) 0, [facility]/pharm[facility] #[id number], 168, cm, 10/23/23 16:55:00 EDT, Height/Length Dosing, 106.2, kg, 10/23/23 16:55:00 EDT, WeightDosing Start Date: 10/23/23 Stop Date: 10/30/23 Status: OrderedStart: 02-15-2023 End: 31-00-0786Awapavob 0.3%-0.1% Susp-Otic 4 drop(s), Otic, BID for 7 day(s), 7.5 mL, Refill(s) 0, Only use if drainage or pain of ear shake well before using, [facility], 168, cm, 02/15/23 9:49:00 EDT,Height/Length Dosing, 108, kg, 02/15/23 9:49:00 EDT, Weight Dosing Start Date: 02/15/23 Stop Date: 02/22/23 Status: Ordereddocusate sodium 100 mg oral capsule (20 sources)take 1 capsule by mouth in the morningdocusate sodium (COLACE) 100 mg capsule Take 1 capsule (100 mg total) by mouth in the morning. Activetake 2 capsules by mouth in the morningdocusate sodium (Colace) 50 MG capsule Take 100 mg by mouth in the morning and 100 mg before bedtime. Activedocusate sodium (COLACE PO) Take by mouth. Active0.4 ml enoxaparin sodium 100 mg/ml prefilled syringe (20 sources)Low Molecular Weight HeparinStart: 01-19-2025 End: 56-00-6380Ukdoftfack Sodium (Lovenox) 40 MG/0.4ML solution prefilled syringe Indications: Anticoagulant long-term use , Antiphospholipid antibody positive , Antiphospholipid antibody syndrome ([facility]) Inject 40 mg as directed Daily for 30 doses 12 mL 3 01/19/2025 02/18/2025 ActiveStart: 01-09-2025 End: 15-45-2478qhuhzn 0.4 mL by subcutaneous injection onceenoxaparin (LOVENOX) 40 mg/0.4 mL syringe Indications: Antiphospholipid syndrome Inject 0.4 mL (40 mg total) under the skin Every 12 (twelve) hours. 24 mL 6 01/13/2025 ActiveStart: 05-03-2023 End: 77-47-5477jtjcxvdjze (LOVENOX) 40 mg/0.4 mL Indications: Primary hypercoagulable state (HCC) , CVA, old, speech/language deficit , Cerebral hyponatremia INJECT 1 SYRINGE SUBCUTANEOUSLY EVERY 24 HOURS 90 mL 10/29/2024 ActiveStart: 04-06-2022 End: 15-78-7961yoqdrcbtmf (LOVENOX) 40 mg/0.4 mL Indications: Primary hypercoagulable state (HCC) , CVA, old, speech/language deficit , Cerebral hyponatremia INJECT THE CONTENTS OF ONE SYRINGE (0.4 ML) SUBCUTANEOUSLY EVERY 24 HOURS 90 mL 2 09/28/2022 ActiveStart: 09-06-2021 End: 99-56-8577rkkzgy 0.8 mL by subcutaneous injection twice dailyenoxaparin (LOVENOX) 80 mg/0.8 mL Indications: Primary hypercoagulable state (HCC) Inject 0.8 mL subcutaneously twice daily. 48 mL 5 09/06/2021 10/06/2021 ActiveStart: 04-07-2020 End: 29-60-6826piedsk 0.4 mL by subcutaneous injection every twenty-four hours enoxaparin (LOVENOX) 40 mg/0.4 mL Indications: Primary hypercoagulable state (HCC) , CVA, old, speech/language deficit , Cerebral hyponatremia Inject 0.4 mL subcutaneously every 24 hours. 36 mL 0 12/30/2021 03/30/2022 Active End: 73-59-6692iepfau 40 mg by subcutaneous injection in the eveningenoxaparin sodium (LOVENOX SUBQ) Inject 40 mg under the skin in the evening. 01/09/2025 Discontinued (Alternate therapy)inject 40 mg by subcutaneous injection in the eveningenoxaparin sodium (LOVENOX SUBQ) Inject 40 mg under the skin in the evening. ActiveComment on above:Inject 0.4 mL subcutaneously every 24 hours Inject 0.8 mL subcutaneously twice daily.Inject 0.4 mL subcutaneously every 24 hours.INJECT THE CONTENTS OF ONE SYRINGE (0.4 ML) SUBCUTANEOUSLY EVERY 24 HOURS enoxaparin (LOVENOX) 40 MG/0.4ML injection (1 source)Start: 19-84-9642ktsyjvigav (LOVENOX) 40 MG/0.4ML injection Inject 0.4 mLs into the skin daily 16 mL 1 02/20/2020 Activeenoxaparin (Lovenox) 40 MG/0.4ML injection (20 sources)enoxaparin (Lovenox) 40 MG/0.4ML injection 1 (one) time each day at the same time Activefamotidine 40 mg oral tablet (20 sources)Histamine-2 Receptor AntagonistStart: 60-73-0538kprw 1 tablet by mouth once daily at bedtimePepcid 40 mg Tab 40 mg = 1 tab(s), Oral, Once a day (at bedtime), # 90 tab(s), Refills(s) 4, Pharmacy: [facility], 168, cm, 06/30/24 8:36:00 EST, Height/Length Dosing, 97.2, kg, 06/30/24 8:36:00 EST, Weight Dosing Start Date: 06/30/24 Status: Ordered Quantity: 90.0 Unit: tab(s) Repeat number: 5Start: 11-29-2023 End: 05-02-3567gnpx 1 tablet by mouth once dailyfamotidine (PEPCID) 20 mg tablet Take 1 tablet by mouth once daily. To take prior to infusion 1 tablet 11/29/2023 10/28/2024 Discontinued (Discontinued by Patient)Start: 11-29-2023 End: 54-14-1025ovyjrsjdlt 20 mg injection (PEPCID)fluconazole 150 mg oral tablet (6 sources)Azole AntifungalStart: 02-63-3124Nrxdgfyo 150 mg Tab 150 mg = 1 tab(s), Oral, q7day, # 4 tab(s), Refills(s) 1, Pharmacy: [facility], 168, cm, 06/09/24 14:03:00 EST, Height/Length Dosing, 98.4, kg, 06/19/24 16:19:00 EST, Weight Dosing Start Date: 06/19/24 Status: Ordered Quantity: 4.0 Unit: tab(s) Repeat number: 2 Indication: Candidiasis, unspecifiedfluticasone propionate 0.05 mg/actuat metered dose nasal spray (20 sources)CorticosteroidStart: 11-20-2024 End: 22-94-6490dnlp 1 spray(s) nasal route once dailyfluticasone (Flonase) 50 MCG/ACT nasal spray Indications: Sinus headache Administer 1 spray into each nostril Daily Shake gently. Before first use, prime pump. After use, clean tip and replace cap. 16 g 3 11/20/2024 11/20/2025 ActiveStart: 18-64-1249Irugdti 0.05 mg/inh Weldon 2 spray(s), Nasal, Daily, 16 gram, Refill(s) 11, each nostril, [facility]/pharmacy #[id number], 168, cm, 06/09/24 14:03:00 EST, Height/Length Dosing, 99.1, kg, 06/09/24 14:03:00 EST, Weight Dosing Start Date: 06/09/24 Status: Ordered Quantity: 16.0 Unit: g Repeat number: 12Start: 25-39-9734Oawkmfp 0.05 mg/inh Weldon 2 spray(s), Nasal, Daily, 16 gram, Refill(s) 11, each nostril, [id number], 168, cm, 06/09/24 14:03:00 EST, Height/Length Dosing, 99.1, kg, 06/09/24 14:03:00 EST, Weight Dosing Start Date: 06/09/24 Status: OrderedStart: 07-76-4673Qrzxvip 0.05 mg/inh Weldon 2 spray(s), Nasal, Daily, 16 gram, Refill(s) 0, each nostril Start Date: 08/03/23 Status: Orderedisopropyl alcohol 0.7 ml/ml medicated pad (20 sources)Start: 26-68-2251Gjtsxid Swabs (Alcohol Prep Pad) 70 % pads Indications: Second trimester ([facility]) , 13 weeks gestation of ([facility]) , Multigravida of advanced maternal age in second trimester ([facility]) , Gestational diabetes mellitus (GDM), antepartum, gestational diabetes method of control unspecified ([facility]) , Elevated glucose tolerance test Apply 1 Pad topically Daily Use four times daily to check FSBS. 150 each 3 10/30/2024 Activelevothyroxine sodium 0.025 mg oral tablet (20 sources)l-ThyroxineStart: 49-07-1612wffwnrysfcmru 25 mcg (0.025 mg) Tab 25 mcg = 1 tab(s), Oral, Daily, Dr. Celaya, # 30 tab(s), Refills(s) 0 Start Date: 06/09/24 Status: Ordered Quantity: 30.0 Unit: tab(s) Repeat number: 1Start: 06-02-2024 End: 49-84-8280tceh 1 tablet by mouth before mealtimelevothyroxine (Synthroid) 50 MCG tablet Indications: History of thyroid disease Take 1 tablet (50 mcg) by mouth in the morning. Take before meals. 30 tablet 11 06/02/2024 06/23/2024 DiscontinuedStart: 02-25-2024 End: 58-58-9443zbjo 1 tablet by mouth before mealtimelevothyroxine (Synthroid) 25 MCG tablet Indications: Abnormal TSH Take 1 tablet (25 mcg) by mouth in the morning. Take before meals. 30 tablet 11 06/23/2024 06/23/2025 ActiveStart: 08-24-2021 End: 53-97-2248tivrpadetigcx (SYNTHROID) 25 mcg tablet Take 25 mcg by mouth. 0 08/24/2021 09/26/2023 Discontinued End: 08-59-1412makl 3 tablets by mouth once dailylevothyroxine (Synthroid) 25 MCG tablet Take 75 mcg by mouth 1 (one) time each day at the same time05/06/2024 DiscontinuedComment on above:Take 25 mcg by mouth.Lovenox 40 mg/0.4 mL Injection (20 sources)Start: 44-65-9931ykjmdx 40 mg by subcutaneous injection every twenty-four hoursLovenox 40 mg/0.4 mL Injection 40 mg, SubCutaneous, q24hr, # 7 EA, Refills(s) 0, Blood Thinner Start Date: 04/07/20 Status: Ordered Quantity: 7.0 Unit: EA Repeat number: 1Start: 48-60-6880xbmiis 40 mg by subcutaneous injection every twenty-four hoursLovenox 40 mg/0.4 mL Injection 40 mg, SubCutaneous, q24hr, # 7 EA, Refills(s) 0, Blood Thinner Start Date: 04/07/20 Status: Tgvqgrq65 hr metFORMIN hydrochloride 500 mg extended release oral tablet (20 sources)BiguanideStart: 01-19-2025 End: 03-60-2303yjko 3 tablets by mouth every twenty-four hours at mealtime metFORMIN XR (Glucophage-XR) 500 MG 24 hr tablet Indications: Gestational diabetes mellitus (GDM), antepartum, gestational diabetes method of control unspecified ([facility]) Take 3 tablets (1,500 mg) by mouth in the evening. Take with meals Do not crush, chew, or split. 90 tablet 3 01/19/2025 02/18/2025 ActiveStart: 41-28-0309lxwSDPIXH XR (GLUCOPHAGE XR) 500 mg 24 hr tablet Take 1500 mg at night. 90 tablet 4 01/01/2025 ActiveStart: 12-17-2024 End: 90-40-4340yfzLNESLG XR (GLUCOPHAGE XR) 500 mg 24 hr tablet Take 1000 mg at night. 90 tablet 4 12/17/2024 01/01/2025 DiscontinuedStart: 05-13-2024 End: 73-09-5818aauv 2 tablets by mouth every twenty-four hours at mealtime metFORMIN XR (Glucophage-XR) 500 MG 24 hr tablet Indications: Insulin resistance Take 2 tablets (1,000 mg) by mouth in the evening. Take with meals Do not crush, chew, or split. 60 tablet 11 05/13/2024 06/02/2024 DiscontinuedStart: 11-27-2023 End: 94-10-4424ksqo 1 tablet by mouth once dailymetFORMIN XR (Glucophage-XR) 500 MG 24 hr tablet Indications: Insulin resistance Take 1 tablet (500mg) by mouth 1 (one) time each day at the same time 30 tablet 11 09/18/2024 01/19/2025 DiscontinuedStart: 10-31-4076SuqPTCAZM (Eqv-Glucophage XR) 500 mg oral tablet, extended release 1,000 mg = 2 tab(s), Oral, Daily, Refills(s) 0 Start Date: 10/20/22 Status: Ordered Repeat number: 1Start: 03-26-2022 End: 20-42-9822fexAUSEHR XR (GLUCOPHAGE XR) 500 mg 24 hr tablet Take 500 mg in the morning and 1000 mg at night. 90 tablet 4 12/12/2024 12/17/2024 Discontinued (Reorder)Multiple Vitamin (Multi-Vitamin) tablet (20 sources)take 1 tablet by mouth in the morningMultiple Vitamin (Multi- Vitamin) tablet Take 1 tablet by mouth in the morning. Activemultivitamin tablet (20 sources)take 1 tablet by mouth once dailymultivitamin tablet Take 1 tablet by mouth once daily. Activetake 1 tablet by mouth once dailymultivitamin tablet Take 1 tablet by mouth once daily. 0 ActiveComment on above:Take 1 tablet by mouth once daily.polyethylene glycol 3350 92684 mg powder for oral solution (20 sources)Osmotic Laxativepolyethylene glycol (GLYCOLAX) 17 gram packet Take 17 g by mouth in the morning. ActivePolyethylene Glycols (4 sources)polyethylene glycol 3350 (MIRALAX PO) Take by mouth. ActivePRENATAL 19 29 mg iron- 1 mg tablet,chewable (20 sources)Start: 89-56-5244KZOZWCRP 19 29 mg iron- 1 mg tablet,chewable Chew 1 tablet and swallow in the morning. 6 10/31/2018ActiveStart: 58-99-7324WFQAQYIN 19 29 mg iron- 1 mg tablet,chewable Chew 1 tablet and swallow daily. 6 10/31/2018 ActivePrenatal Vit-Fe Fumarate-FA ( PO) (1 source)Start: 55-97-0777Ohrchear Vit-Fe Fumarate-FA ( PO) Take 1 tablet by mouth 0 10/31/2018 Activeprogesterone 200 mg oral capsule (20 sources)Progesteronetake 1 capsule by mouth in the morningprogesterone (PROMETRIUM) 200 mg capsule Take 1 capsule (200 mg total) by mouth in the morning. ActiveProgesterone 200 MG suppository (6 sources)Start: 09-18-2024 End: 91-93-8321Llyaqvkglhsf 200 MG suppository Indications: History of miscarriage Insert 200 mg into the vagina at bedtime Insert suppository vaginally every night at bedtime until 12 weeks gestation 30 suppository 3 09/18/2024 10/30/2024 Discontinued (Therapy completed)Start: 09-18-2024 End: 40-40-1156Posrgbswerqt 200 MG suppository Indications: History of miscarriage Insert 200 mg into the vagina at bedtime Insert suppository vaginally every night at bedtime until 12 weeks gestation 30 suppository 3 09/18/2024 12/17/2024 ActiveStart: 09-01-2024 End: 77-94-1059Dpdrgzwaqymy 200 MG suppository Indications: History of miscarriage Insert 200 mg into the vagina at bedtime Insert suppository vaginally every night at bedtime until 12 weeks gestation 30 suppository 2 09/01/2024 11/30/2024 Activeprogesterone vaginal suppository 200 mg (CPD) (4 sources)progesterone vaginal suppository 200 mg (CPD) Use 200 mg vaginally. Unwrap and insert as directed. Activeterconazole 4 mg/ml vaginal cream (3 sources)Azole AntifungalStart: 06-23-2024 End: 20-05-4561eziqrlafrye (Terazol 7) 0.4 % vaginal cream Indications: Vaginal discharge Insert 1 applicator intothe vagina at bedtime for 7 days 45 g 06/23/2024 06/30/2024 ActiveVentolin HFA 90 mcg/inh Aerosol-Adpt (1 source)Start: 09-07-2024 End: 37-56-2175fxro 2 puff(s) by inhalation every six hours for wheezingVentolin HFA 90 mcg/inh Aerosol-Adpt 2 puff(s), Inhalation, q6hr for wheezing for 7 day(s), 8 gm, Refill(s) 0, [facility], 167, cm, 09/07/24 10:01:00 EDT, Height/Length Dosing, 96.4, kg, 09/07/24 10:01:00 EDT, Weight Dosing Start Date: 09/07/24 Stop Date: 09/14/24 Status: Ordered Quantity:8.0 Unit: g Repeat number: 1 Indication: Acute upper respiratory infection, unspecifiedVitamin D (20 sources)Start: 13-64-9340Oxsarll D 2,000 International_Unit, Oral, qWeek, Refills(s) 0 Start Date: 08/03/23 Status: Ordered Repeat number: 1Start: 13-45-8777Fsycnrf D 2,000 International_Unit, Oral, qWeek, Refills(s) 0 Start Date: 08/03/23 Status: Ordered Completed/Discontinued Medications MedicationDrug Class(es)DatesSig (Normalized)Sig (Original)aspirin 81 mg chewable tablet (5 sources)Platelet Aggregation Inhibitor, Nonsteroidal Anti-inflammatory Drug End: 01-59-9548slrjnum 81 MG chewable tablet Chew 81 mg in the morning. 05/06/2024 Discontinued1 ml dexamethasone phosphate 4 mg/ml injection (1 source)CorticosteroidStart: 11-29-2023 End: 90-01-2131rejYTEPLtzqjs sodium phosphate 8 mg injection (DECADRON)3 ml insulin glargine 100 unt/ml pen injector (6 sources)Insulin AnalogStart: 12-03-2024 End: 56-57-7245jmzbgla glargine (LANTUS SOLOSTAR U-100 INSULIN) 100 unit/mL (3 mL) insulin pen Prime with 2 units then inject 4 units SQ into abd 15 mL 3 12/03/2024 12/17/2024 Discontinued (Allergic response)insulin isophane, human 100 unt/ml injectable suspension (10 sources)Start: 12-26-2024 End: 98-48-4568qsup 8 [IU] by mouth once dailyinsulin NPH (HumuLIN N,NovoLIN N) 100 unit/mL injection Indications: Gestational diabetes mellitus (GDM) in second trimester controlled on oral hypoglycemic drug Inj sbq in abd 8 units nightly 10 mL 6 12/26/2024 02/06/2025 Discontinued (Patient Never Started This Medication)iron sucrose 300 mg in NaCl 0.9% 250 mL (VENOFER) (3 sources)Start: 11-29-2023 End: 53-92-4778duvl sucrose 300 mg in NaCl 0.9% 250 mL (VENOFER)Start: 11-22-2023 End: 82-96-6754trdu sucrose 300 mg in NaCl 0.9% 250 mL (VENOFER)Start: 11-15-2023 End: 06-79-6888cbnz sucrose 300 mg in NaCl 0.9% 250 mL (VENOFER)multivitamin (MULTIPLE VITAMINS) tablet (7 sources)take 1 tablet by mouth once dailymultivitamin (MULTIPLE VITAMINS) tablet Take 1 tablet by mouth once daily. 0 ActiveComment on above:Take 1 tablet by mouth once daily.ondansetron 4 mg disintegrating oral tablet (4 sources)Serotonin-3 Receptor AntagonistStart: 04-14-2024 End: 39-40-0876kymy 1 tablet by mouth every six hours for nauseaondansetron ODT (Zofran-ODT) 4 MG disintegrating tablet Indications: Nausea and vomiting in Take 1 tablet (4 mg) by mouth every 6 (six) hours if needed for nausea or vomiting 30 tablet 2 04/14/2024 05/06/2024 DiscontinuedStart: 03-07-2024 End: 24-85-8832tqpl 1 tablet by mouth every six hours as needed for nausea and vomiting and nausea and nauseaondansetron ODT (Zofran-ODT) 4 MG disintegrating tablet Indications: Nausea Take 1 tablet (4 mg) bymouth every 6 (six) hours if needed for nausea or vomiting 30 tablet 2 03/07/2024 04/06/2024 Active polysaccharide iron complex 391 mg oral capsule (20 sources)Start: 03-06-2022 End: 01-48-8478WXI FE 180 mg iron cap Problems Active Problems Problem ClassificationProblemDateDocumented DateEpisodic/ChronicAcute cerebrovascular disease (20 sources)Cerebral infarction; Translations: [Cerebral infarction, unspecified]Onset: 05-16-2019 Resolved: 972414-53-0544RycumduFcvykgi disorders (20 sources)Anxiety; Translations: [Anxiety disorder, unspecified]Onset: 559142-53-2775YscbjrpQahzcwx dysrhythmias (20 sources)Supraventricular tachycardia; Translations: [Supraventricular tachycardia]Onset: 019020-31-3206PtdxvhbJrcnnuktxex and hemorrhagic disorders (20 sources)Antiphospholipid syndrome; Translations: [Hypercoagulability state] Onset: 440018-39-8143DyelelpUqcclzxcfs and other anemia (20 sources)Iron 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; Translations: [Iron deficiency anemia secondary to blood loss (chronic)]Onset: 72-81-5088Zjfaefe Deficiency and other anemia (1 source)Iron deficiency anemia secondary to blood loss (chronic); Translations: [Iron deficiency anemia secondary to blood loss (chronic)]Onset: 25-97-9821IotdhwrLazjzbhb or abnormal glucose tolerance complicating ; childbirth; or the puerperium (20 sources)Gestational diabetes mellitus in , unspecified control; Translations: [Gestational diabetes mellitus in childbirth, unspecified control] Onset: 44-98-0553WououpzjAobpqedjd of teeth and jaw (11 sources)Temporomandibular uxnew-clbt-gkctkbamryo syndrome; Translations: [Arthralgia of temporomandibular joint]Onset: 016439-43-2724Dvgvaioa Esophageal disorders (20 sources)Laryngopharyngeal reflux; Translations: [Gastro-esophageal reflux disease without esophagitis]Onset: 751223-42-6553AywqtlcYjhatfvv; including migraine (2 sources)Sinus headache; Translations: [Sinus headache]60-59-4266Wdkeroop Immunizations and screening for infectious disease (20 sources)Antibody studies abnormal; Translations: [Raised antibody titer] Onset: 779137-70-0074IjsbnpjaDpac effects of cerebrovascular disease (20 sources)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; Translations: [Other speechand language deficits following cerebral infarction]Onset: 27-87-3106DmdsqbpJcylmdeggl disorders (1 source)Hormone replacement therapy; Translations: [HORMONE REPLACEMENT THERAPY]Onset: 97-17-3523KjlcpqekOykuhvxex disorders (20 sources)Irregular menstruation, unspecified; Translations: [Missed period] Onset: 01-62-6233TqjwuxxDaaeynghbnxsr mental health disorders (20 sources)Psychogenic hyperventilation; Translations: [Other somatoform disorders]Onset: 180883-50-9488ZugjgzqXxusfnlh sclerosis (1 source)Multiple sclerosis; Translations: [Multiple sclerosis]Onset: 68-17-9870GviocylTwrhypowmul deficiencies (20 sources)Vitamin D deficiency; Translations: [Vitamin D deficiency, unspecified]Onset: 681003-01-6499MasyigyWzsjm aftercare (20 sources)Long-term current use of anticoagulant; 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]Onset: 084826-85-9966GvnkkethTarnf aftercare (1 source)Other continuous churn buttermaker (current) drug therapy; Translations: [OTH NURSING HOME CURRENT DRUG THERAPY]Onset: 58-64-9244NckwvvcgMdnkt aftercare (1 source)residential (current) use of oral hypoglycemic drugs; Translations: [MICROSTRATEGY ARCHITECT DEVELOPER USE ORAL HYPOGLYCEMIC DX]Onset: 58-29-2917CevsxocgPiqic aftercare (2 sources)H/O: miscarriage; Translations: [Encounter for other specified aftercare]55-05-3508LwixliklMdkwt circulatory disease (20 sources)History of cerebrovascular accident; Translations: [Personal history of transient ischemic attack (TIA), and cerebral infarction without residual deficits]Onset: 248963-09-0195NclgfxqsCnjkvvu on above:reported by pt - related to antiphospholipid syndromeOther circulatory disease (4 sources)History of cerebrovascular disease; Translations: [Personal history of transient ischemic attack (TIA), and cerebral infarction without residual deficits]Onset: 612714-76-1893YqiaikouGmqix circulatory disease (3 sources)Personal history of transient ischemic attack (TIA), and cerebral infarction without residual deficits; Translations: [PERS HX TIA AND CI NO RESID DEFICIT]Onset: 86-23-4700LhveeibhKobry circulatory disease (20 sources)Elevated blood-pressure reading without diagnosis of hypertension; Translations: [Elevated blood-pressure reading, without diagnosis of hypertension]Onset: 769006-14-3744EyvuqmedCpbok circulatory disease (1 source)History of transient ischemic attack; Translations: [Personal history of transient ischemic attack (TIA), and cerebral infarction without residual deficits]88-60-2735DvhjktzuTnyem complications of ; puerperium affecting management of mother (20 sources)Anemia in mother complicating childbirth; Translations: [Anemia complicating childbirth]Onset: 709121-83-7423SixdwlaVqumy complications of ; puerperium affecting management of mother (1 source)Other diseases of the blood and blood-forming organs and certain disorders involving the immune mechanism complicating childbirth; Translations: [OTH DZ BLD BFO IMMUN COMP CHILDBRTH]Onset: 73-83-9410TueknuwkWgswl complications of ; puerperium affecting management of mother (1 source)Endocrine, nutritional and metabolic diseases complicating childbirth; Translations: [ENDOCRN NUTR MET DZ COMP CHILDBIRTH]Onset: 45-69-7308Kidsaddq Other complications of ; puerperium affecting management of mother (1 source)Streptococcus B carrier state complicating childbirth; Translations: [STREP B QUIROZ STATE COMP CHILDBIRTH]Onset: 51-16-5868GctdgreuSqylt complications of (20 sources)Iron deficiency anemia of ; Translations: [Anemia complicating , unspecified trimester]Onset: 61-60-8796XomlebkCeozn complications of (1 source)Endocrine, nutritional and metabolic diseases complicating , third trimester; Translations: [ENDOCRN NUTR MET DZ COMP PG 3RD TRI]Onset: 45-10-3595DjoswhwmFadrn complications of (5 sources)Supervision of elderly multigravida, third trimester; Translations: [SUP ELDER MULTIGRAVIDA THIRD TRI]Onset: 46-86-7230SalnatqbRthcl complications of (1 source)Other diseases of the blood and blood-forming organs and certain disorders involving the immune mechanism complicating , third trimester; Translations: [OTH DZ BLD BFO IMMN COMP PG 3RD TRI]Onset: 05-04-2022 EpisodicOther complications of (1 source)Maternal care for excessive growth, third trimester, not applicable or unspecified; Translations: [MAT CARE EXCSS FTL GRTH 3RD TRI UNS] Onset: 61-51-1682NucpekoaRdtdb complications of (20 sources)Antiphospholipid syndrome; Translations: [Other diseases of the blood and blood-forming organs and certain disorders involving the immune mechanism complicating , unspecified trimester]Onset: 07-07-2019 97-53-7037AombejmzKkufv complications of (11 sources)History of with abortive outcome; Translations: [Supervision of with other poorreproductive or obstetric history, second trimester]Onset: 269105-90-3753EnrtkzmmPorwz complications of (3 sources)Hypothyroidism in ; Translations: [Endocrine, nutritional and metabolic diseases complicating , second trimester]01-02-2025 EpisodicOther ear and sense organ disorders (20 sources)Otitis externa of right ear; Translations: [Unspecified otitis externa, right ear]Onset: 87-18-5165WluktchOtejy ear and sense organ disorders (7 sources)Otitis ozpnmkm80-48-5683KvskutxRcxtp endocrine disorders (20 sources)Hypoglycemia; Translations: [Hypoglycemia, unspecified]Onset: 172668-20-7815JbbfdaiVamms female genital disorders (2 sources)Vaginal bleeding; Translations: [Abnormal uterine and vaginal bleeding, unspecified]92-66-6159KtnzauuTgknn female genital disorders (4 sources)Vaginal discharge; Translations: [Other specified noninflammatory disorders of vagina]81-78-4723LdcdrnarKsdmb hematologic conditions (1 source)H/O: blood disorder; Translations: [Personal history of diseases of the blood and blood-forming organs and certain disorders involving the immune mechanism]Onset: 44-80-9938WedaauqgIjyqu lower respiratory disease (9 sources)Vqvrc50-46-8411WnylxvxsJsfyk nervous system disorders (1 source)Idiopathic progressive neuropathy; Translations: [Idiopathic progressive neuropathy]Onset: 25-01-7596YuccxqzMzilt nervous system disorders (20 sources)Neuropathy; Translations: [Idiopathic progressive neuropathy]Onset: 118502-32-3758NsbtyfvXtxnt nervous system disorders (3 sources)Paresthesia; Translations: [Paresthesia of skin]Onset: 05-16-2019 EpisodicOther nervous system disorders (9 sources)Muscle fihdxs28-08-3685DqlzgacwYgltb nervous system disorders (6 sources)Facial awvaivkavrz20-28-3836LojpaulgYczwa nutritional; endocrine; and metabolic disorders (10 sources)Obese class II; Translations: [Body mass index (BMI) 36.0-36.9, adult]Onset: 55-49-8938RiftdyfOfbkk nutritional; endocrine; and metabolic disorders (20 sources)Obesity; Translations: [Other obesity]Onset: 799924-35-3433 ChronicOther nutritional; endocrine; and metabolic disorders (20 sources)Morbid obesity; Translations: [Morbid (severe) obesity due to excess calories]Onset: 61-89-4605JrfbggtIpkhp nutritional; endocrine; and metabolic disorders (3 sources)Hypercalcemia; Translations: [Hypercalcemia]28-95-0509BdlorvdRdvyh nutritional; endocrine; and metabolic disorders (20 sources)Body mass index 30+ - obesity; Translations: [Body mass index (BMI) 37.0-37.9, adult]Onset: 486158-07-2239MlcpoveUbagv nutritional; endocrine; and metabolic disorders (1 source)Obese class I; Translations: [Body mass index (BMI) 34.0-34.9, adult] Onset: 35-27-5346JjfqhtvKmouv nutritional; endocrine; and metabolic disorders (1 source)H/O: Disorder; Translations: [Personal history of other endocrine, nutritional and metabolic disease]Onset: 41-97-4184YmasvtwaBsyly nutritional; endocrine; and metabolic disorders (2 sources)H/O: thyroid disorder; Translations: [Personal history of other endocrine, nutritional and metabolic disease]79-26-9300EbfgplnpPztly and delivery including normal (20 sources)Normal ; Translations: [Encounter for supervision of normal , unspecified, first trimester]Onset: 673761-93-4910Lcdxjmto Other screening for suspected conditions (not mental disorders or infectious disease) (12 sources)Encounter for screening for malignant neoplasm of cervix; Translations: [Encounter for screening for diabetes mellitus]Onset: 10-28-2021 EpisodicOther skin disorders (1 source)Podopompholyx; Translations: [Dyshidrosis [pompholyx]]Onset: 07-83-1764OclivlffBjuwa upper respiratory disease (20 sources)Allergy to -17-7042JdvwefdZcxuf upper respiratory disease (1 source)Polyp of nasal sinus; Translations: [Nasal polyp, unspecified]Onset: 99-05-1937LjyewoyyJkbya upper respiratory infections (8 sources)Chronic sinusitis; Translations: [Chronic sinusitis, unspecified] Onset: 28-62-3116JtdwdbiPedehtgy codes; unclassified (1 source)Sleep disorder; Translations: [Other sleep disorders]Onset: 10-20-2022 ChronicResidual codes; unclassified (20 sources)Obstructive sleep apnea syndrome; Translations: [Obstructive sleep apnea (adult) (pediatric)]Onset: 769899-71-5468HswwfloUzmnovrv codes; unclassified (8 sources)Patient encounter status; Translations: [Other specified health status]Onset: 94-68-4117PivkdyopAsukawfd codes; unclassified (1 source)39 weeks gestation of ; Translations: [39 WEEKS GESTATION OF ]Onset: 41-94-8499PjdwgxmmBjmmuwpa codes; unclassified (1 source)Family history of diabetes mellitus; Translations: [FAMILY HISTORY OF DIABETES MELLITUS]Onset: 56-73-2518AohfpvhhJgscmjwn codes; unclassified (1 source)Family history of stroke; Translations: [FAMILY HISTORY OF STROKE] Onset: 13-20-1411RlrtkmjtAwnxbaoa codes; unclassified (1 source)38 weeks gestation of ; Translations: [38 WEEKS GESTATION OF ]Onset: 99-29-2012QzsbmxtuFbmvtaol codes; unclassified (1 source)37 weeks gestation of ; Translations: [37 WEEKS GESTATION OF ]Onset: 01-65-1685DnssvskmQsemyink codes; unclassified (1 source)35 weeks gestation of ; Translations: [35 WEEKS GESTATION OF ]Onset: 69-92-2173JwqyftfbHaczmqrw codes; unclassified (1 source)34 weeks gestation of ; Translations: [34 WEEKS GESTATION OF ]Onset: 56-92-3996WoizkflkRraialob codes; unclassified (1 source)33 weeks gestation of ; Translations: [33 WEEKS GESTATION OF ]Onset: 07-88-0430XvbnmoxiNdmmjigk codes; unclassified (1 source)32 weeks gestation of ; Translations: [32 WEEKS GESTATION OF ]Onset: 16-80-2449UxuawuoxJzdysiog codes; unclassified (1 source)31 weeks gestation of ; Translations: [31 WEEKS GESTATION OF ]Onset: 47-67-8836ZxiherdbKaousstc codes; unclassified (20 sources)Sleep seiiievf80-06-1380CwpishhrErrlfzxd codes; unclassified (1 source)Localized edema; Translations: [Localized edema]Onset: 11-09-2023 EpisodicResidual codes; unclassified (2 sources)Gestation period, 14 weeks; Translations: [14 weeks gestation of ]60-01-3731SzqadccgOopgekhh codes; unclassified (2 sources)Gestation period, 13 weeks; Translations: [13 weeks gestation of ]47-67-3912FdqavbmnVbwltled codes; unclassified (2 sources)Gestation period, 16 weeks; Translations: [16 weeks gestation of ]56-57-5018UavcstvbPkspfhsb codes; unclassified (2 sources)Gestation period, 19 weeks; Translations: [19 weeks gestation of ]76-07-9449OqtmlmygHnkcdrsz codes; unclassified (3 sources)Gestation period, 22 weeks; Translations: [22 weeks gestation of ]20-06-5704AgwrfgadNygzbxll codes; unclassified (3 sources)Family history of autism; Translations: [Family history of other mental and behavioral disorders]42-83-4043GkfhsjzvCdioiqfc codes; unclassified (2 sources)Gestation period, 23 weeks; Translations: [23 weeks gestation of ]48-11-2085RsbxixtsErqpzesf codes; unclassified (2 sources)Gestation period, 25 weeks; Translations: [25 weeks gestation of ]72-44-7883IllccvqwQvbuozbr codes; unclassified (1 source)Gestation period, 27 weeks; Translations: [27 weeks gestation of ]60-65-2078NnbszvycImdhxwlz codes; unclassified (1 source)22 weeks gestation of ; Translations: [22 weeks gestation of ]Onset: 63-91-5241YexeasrxLwmrmcqr codes; unclassified (2 sources)Gestation period, 28 weeks; Translations: [28 weeks gestation of ]43-58-0465EcbguryvXcbwyzdx codes; unclassified (1 source)Gestation period, 29 weeks; Translations: [29 weeks gestation of ]84-42-4455TkogplejIbvqkay disorders (20 sources)Hypothyroidism; Translations: [Hypothyroidism, unspecified]Onset: 900694-82-9534KgdyxriWiesukt disorders (16 sources)Disorder of thyroid, unspecified; Translations: [Disorder of thyroid gland]Onset: 564247-57-0711FoyckwfcBpqaibkdk cerebral ischemia (1 source)Transient cerebral ischemia; Translations: [Transient cerebral ischemic attack, unspecified]Onset: 547203-73-8323JlnvkhyYoghurwlrzvc (20 sources)History of SQHJ-PaD-246-11-2022Unclassified (20 sources)Inhalation lwzqyy99-28-2055Iewlcndhjmqs (20 sources)Ajt-lkuphr03-81ngambl38-41-8072Mlankvomycbq (1 source)CONTACT W/AND (SUSP) EXPOS COVID-19; Translations: [CONTACT W/AND (SUSP) EXPOS COVID-19]Onset: 02-12-6759Cisfnbplprmc (15 sources)Patient encounter -99-6863Kxfdsdvmcqfk (1 source)MFM consultOnset: 69-70-6105Eogbqiqjadsm (1 source)Gestational DiabetesOnset: 77-67-2171Fkkot infection (20 sources)Viral roqvnwq16-44-7774Ukotbimr Past or Other Problems Problem ClassificationProblemDateDocumented DateEpisodic/ChronicAbdominal pain (20 sources)Abdominal pain; Translations: [Pain in pelvis]Onset: 02-01-2019 06-09-2474RxywinrbSajsw bronchitis (20 sources)Acute infective bronchitis; Translations: [Acute bronchitis due to other specified organisms]Onset: 389204-25-7921JhcqfeaaErfqa posthemorrhagic anemia (20 sources)Acute posthemorrhagic anemia; Translations: [Acute posthemorrhagic anemia]Onset: 629540-94-2267HykcdddvZorpmyxh reactions (20 sources)Other allergy status, other than to drugs and biological substances; Translations: [Xopsc-qx-ozruyxy vesicular eczema of hands and feet]Onset: 23-75-0559CnaeuootMusutozjj infection; unspecified site (20 sources)Bacterial infectious disease; Translations: [Other bacterial infections of unspecified site]Onset: 291067-25-1962DfkqflnkHpegbfnf of urinary tract (20 sources)History of calculus of kidney; Translations: [Personal history of urinary calculi]Onset: 835399-40-2909OeqrsntrMealath dysrhythmias (20 sources)Palpitations; Translations: [Palpitations]Onset: 08-26-2019 85-53-8744IksvccjbHccwkpvriw associated with dizziness or vertigo (20 sources)Dizziness; Translations: [Dizziness and giddiness]Onset: 02-05-2019 09-56-3977ZvnaivlpYtasxafqyb and other anemia (20 sources)Anemia; Translations: [Anemia, unspecified]Onset: 67-47-4809Sqeetpwh Diabetes mellitus without complication (20 sources)Prediabetes; Translations: [Prediabetes]Onset: 13-39-4021Qkcymeym Diseases of mouth; excluding dental (20 sources)Xerostomia; Translations: [Dry mouth, unspecified]Onset: 12-22-2022 EpisodicFluid and electrolyte disorders (20 sources)Cerebral hyponatremia; Translations: [Hypo-osmolality and hyponatremia]Onset: 06-44-6349BygluiuiOmsfeieinousizwm hemorrhage (20 sources)Hematochezia; Translations: [Blood-tinged feces]Onset: 06-12-2023 84-38-2542LqklcwheTseadgcupjpgd symptoms and ill-defined conditions (20 sources)Genitourinary symptoms; Translations: [Unspecified symptoms and signs involving the genitourinary system]Onset: 22-71-8425RpyrvgilVfwstdvm; including migraine (20 sources)Migraine without aura, not refractory ; Translations: [Migraine without aura, not intractable, without status migrainosus]Onset: 09-12-2017 Resolved: 162573-60-6182ElgkuuwCeisokl and fatigue (20 sources)Fatigue; Translations: [Other fatigue]Onset: EpisodicMycoses (20 sources)Candidiasis of vagina Resolved: 032307-61-6841AxxteyoiIkgcerszots deficiencies (20 sources)Vitamin B deficiency; Translations: [Deficiency of other specified B group vitamins]Onset: 527234-09-9698YngbsicsEC-pknqrsk trauma to perineum and vulva (20 sources)First degree perineal tear during delivery - delivered; Translations: [First degree perineal laceration during delivery]Onset: 699382-72-4788KhjdsafyGabtu aftercare (20 sources)Long-term current use of drug therapy; Translations: [residential (current) use of 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/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]Onset: EpisodicOther circulatory disease (20 sources)Elevated blood pressure; Translations: [Elevated blood-pressure reading, without diagnosis of hypertension]Onset: 960401-97-1141Pvbjjyba Other complications of ; puerperium affecting management of mother (20 sources) problem; Translations: [Unspecified disorders of ]Onset: 794709-70-9530AwmnmabuElxlv complications of ; puerperium affecting management of mother (1 source)Endocrine, nutritional and metabolic disease complicating , childbirth and puerperium; Translations: [Endocrine, nutritional and metabolic diseases complicating childbirth]Onset: 939963-61-3236GamswabeOfilb complications of ; puerperium affecting management of mother (1 source)Complication of , childbirth and/or the puerperium; Translations: [Other diseases of the blood and blood-forming organs and certain disorders involving the immune mechanism complicating childbirth]Onset: 725112-55-7228HedvpbjmMdmob complications of ; puerperium affecting management of mother (20 sources) hemorrhage; Translations: [Other immediate hemorrhage]Onset: 270577-11-5890KnokxkzuEddep complications of (1 source)Vomiting of ; Translations: [Vomiting of , unspecified]Onset: 668979-76-9433EwzsqlsoQrrlu complications of (20 sources)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; Translations: [Maternal care for (suspected) chromosomal abnormality in fetus, not applicable or unspecified]Onset: 800530-66-3121ZqhwrokxMtbql complications of (4 sources)Other specified related conditions, third trimester; Translations: [OTH SPEC PREG RELATEDCOND 3RD TRI]Onset: 80-46-6066NjzourkfSkfjm complications of (20 sources)Multigravida of advanced maternal age; Translations: [Supervision of elderly multigravida, second trimester]Onset: 113659-78-4506LgiojnuvMefao complications of (2 sources)Other diseases of the blood and blood-forming organs and certain disorders involving the immune mechanism complicating , unspecified trimester; Translations: [Other diseases of the blood andblood-forming organs and certain disorders involving the immune mechanism complicating , un specified trimester]Onset: 90-07-8254DaikukacHdfxd complications of (1 source)Supervision of elderly multigravida, second trimester; Translations: [Supervision of elderly multigravida, second trimester]Onset: 60-77-0945Esycjtzu Other ear and sense organ disorders (20 sources)Referred otalgia of right ear; Translations: [Otalgia, right ear] Onset: 749142-55-5155CciqyxosLcfle female genital disorders (20 sources)Noninflammatory disorder of the vagina; Translations: [Other specified noninflammatory disorders ofvagina]Onset: 182988-25-8240Lralwglo Other female genital disorders (20 sources)Disorder of female reproductive system; Translations: [Unspecified condition associated with femalegenital organs and menstrual cycle]Onset: 300499-17-9077QrsvpohgBamew female genital disorders (1 source)Other specified noninflammatory disorders of vagina; Translations: [OTH SPEC NONINFLAMMATORY D/O VAGINA]Onset: 06-59-2449RhaobjcmPlbfg female genital disorders (2 sources)Pelvic and perineal pain; Translations: [Pelvic and perineal pain] Onset: 495297-96-2659AxwlpsypArynf hematologic conditions (20 sources)H/O: anemia - iron deficient; Translations: [Personal history of diseases of the blood and blood-forming organs and certain disorders involving the immune mechanism]Onset: 619925-97-8252OosooiuxOvrpk infections; including parasitic (20 sources)Personal history of other infectious and parasitic diseases; Translations: [History of COVID-19]Onset: 001915-30-8778KsixyfjrHylwp inflammatory condition of skin (1 source)Itching of skin; Translations: [Pruritus, unspecified]Onset: 301342-52-2161RlsgbnluQdbrm inflammatory condition of skin (20 sources)Pruritus, unspecified; Translations: [Unspecified pruritic disorder] Onset: 413978-81-2258IrdoizayEjpxu injuries and conditions due to external causes (20 sources)Inhalation injury; Translations: [Injury, unspecified, initial encounter]Onset: 954482-57-2830ZqkbizesRtqfn lower respiratory disease (20 sources)Dyspnea; Translations: [Dyspnea, unspecified]Onset: 06-12-2023 75-02-6391KiotypvvFqjwh lower respiratory disease (20 sources)H/O: asthma; Translations: [Personal history of other diseases of the respiratory system]Onset: 034792-54-7278BpqfbivdUmmfg lower respiratory disease (20 sources)Snoring; Translations: [Snoring]Onset: 93-86-0067DswezcklDvhae nervous system disorders (20 sources)Muscle fasciculation; Translations: [Fasciculation]Onset: 08-19-2021 EpisodicOther nervous system disorders (20 sources)Paresthesia of lower extremity; Translations: [Paresthesia of skin] Onset: 936370-54-9729BduexjtkLjxjo nervous system disorders (20 sources)Acute postoperative pain; Translations: [Other acute postprocedural pain]Onset: 535778-13-9648BttcfabeHuqth non-traumatic joint disorders (20 sources)Joint pain; Translations: [Pain in unspecified joint]Onset: 542019-51-7915DryjvitjYqlde nutritional; endocrine; and metabolic disorders (20 sources)H/O: hypothyroidism; Translations: [Personal history of other endocrine, nutritional and metabolic disease]Onset: 581877-60-5221Jlspvdqu Other skin disorders (20 sources)Efasz-lo-frsjxah vesicular eczema of hands and feet; Translations: [Dyshidrosis [pompholyx]]Onset: 169281-14-7776JmoinqvzLuqkd upper respiratory disease (20 sources)Deviated nasal septum; Translations: [Deviated nasal septum]Onset: 13-37-2498OpxtcnodLquik upper respiratory disease (20 sources)Polyp of nasal cavity and/or nasal sinus; Translations: [Nasal polyp, unspecified]Onset: 011348-02-8032XqqbajxrWkrtu upper respiratory infections (20 sources)Acute upper respiratory infection Resolved: 326696-18-3349ZguyrjkcZbxofq media and related conditions (20 sources)Dysfunction of eustachian tube; Translations: [Disorder of right Eustachian tube]Onset: 941734-77-0995HfqmasjxMnxzxze cyst (20 sources)Cyst of ovary; Translations: [Cyst of right ovary]Onset: 02-06-2019 93-66-1735AysualogSfjonkew codes; unclassified (20 sources)Family history of female genital tract disorder Resolved: 708423-13-1099KyccswogMqtwkqtx codes; unclassified (20 sources)FH: Anemia Resolved: 841590-26-2767BhaxxeyaTlglwujk codes; unclassified (20 sources)First trimester ; Translations: [Less than 8 weeks gestation of ]Onset: 316134-05-0421XlxkhbgnUnpwdvgh codes; unclassified (20 sources)Gestation period, 32 weeks; Translations: [32 weeks gestation of ]Onset: 527370-41-4348HmtomeelVandriqg codes; unclassified (1 source)Gestation period, 33 weeks; Translations: [33 weeks gestation of ]Onset: 107120-06-5750AmxfisuvUunvbtln codes; unclassified (1 source)Gestation period, 34 weeks; Translations: [34 weeks gestation of ]Onset: 268578-86-8737CmbxbekeNsrgzfki codes; unclassified (1 source)Gestation period, 35 weeks; Translations: [35 weeks gestation of ]Onset: 065460-16-5718ZpiaohxwWkhiprpv codes; unclassified (1 source)Gestation period, 36 weeks; Translations: [36 weeks gestation of ]Onset: 177623-93-4441BtufqotoGjbtnqkm codes; unclassified (1 source)Gestation period, 37 weeks; Translations: [37 weeks gestation of ]Onset: 078025-83-2016TspaevqeCghewxgd codes; unclassified (1 source)Gestation period, 38 weeks; Translations: [38 weeks gestation of ]Onset: 802224-58-8186JgfcnezoWwwuvsld codes; unclassified (1 source)Gestation period, 39 weeks; Translations: [39 weeks gestation of ]Onset: 210046-38-3242OmgundcoXkwvtjqi codes; unclassified (20 sources)Other general symptoms and signs; Translations: [Other general symptoms]Onset: 680769-21-0312WpmtnbwzYmnejxod codes; unclassified (1 source)Unspecified blood type, Rh negative; Translations: [UNSPECIFIED BLOOD TYPE RH NEGATIVE]Onset: 49-74-3829YcfumxzgWbvohxqv codes; unclassified (1 source)28 weeks gestation of ; Translations: [28 WEEKS GESTATION OF ]Onset: 70-06-9860CkrumojyArvaykvc codes; unclassified (20 sources)Intolerant of cold; Translations: [Other general symptoms and signs] Onset: 338300-12-6769HiahevhoLmhfnype codes; unclassified (20 sources)Non-smoker; Translations: [Other specified health status]Onset: 433659-84-3731XvnejoyaGdgnbndz codes; unclassified (20 sources)Swelling of salivary gland; Translations: [Localized edema]Onset: 844177-11-2951OxoejroqJlszbxysemo; intervertebral disc disorders; other back problems (20 sources)Neck pain; Translations: [Cervicalgia]Onset: EpisodicSpontaneous (20 sources)Miscarriage Resolved: 244476-96-0272RwfujdhgKyirphg (20 sources)Syncope and collapse; Translations: [Syncope and collapse]Onset: 470974-32-4262NdxxgsfeRphwqqvsxqhr (20 sources)PregnancyOnset: 02-20-2007 Resolved: 708310-29-9446Rjtwfbxykvxx (20 sources)Suspected disease caused by 8064-lUpB78-69jWdV65-46-5496Vtfavqswlnba (1 source)Exposure to 2019 novel coronavirus; Translations: [Contact with and (suspected) exposure to COVID19]Urinary tract infections (20 sources)Infective urethritis; Translations: [Other urethritis]Onset: 28-28-6379Wxjtzhtk Results Test NameValueInterpretationReference RangeFacilityUrinalysis macro (dipstick) panel (U)on 84-69-8546Xyatcwswt, UANegativeNegative - 4(70) +++ mg/dLNOMS HealthcareBlood, UANegativeNegative - 50 Max/mcLNOMS HealthcareClarity, UAClear NOMS HealthcareColor, UAYellowNOMS HealthcareGlucose, UANegativeNegative - 2000(110) ++++ mg/dLNOMS HealthcareInterpretation and review of laboratory resultsAbnormalNOMS HealthcareKetones, UANegativeNegative - 160(16) ++++ mg/dL NOMS HealthcareLeukocytes, UATraceNegative - 500+++ John/mcLNOMS Healthcare Nitrite, UANegativeNegative - PositiveNOMS HealthcarepH, UA6.55 - 9NOMS HealthcareProtein, UANegativeNegative - 2000(20) ++++ mg/dLNOMS HealthcareSpec Grav, UA1.0051 - 1.03NOMS HealthcareUrobilinogen, UA2.00.2 - 12 mg/dLNOMS HealthcareNOMS HealthcareCNPNon 19-43-4191KWBWKvnxjjylw ([place]) SANNA RENDON ([id number]) 1985 F Date Time Provider Department 01/29/25 RACHAEL JOHNSONNANI During your visit today, we recorded the [...] to discuss Providers: Thoughts? MARSHA Rush Holly, APRN.TOR 02/05/2025 9:58 AM Signed Please call patient with update on what her OB recommended. ThanksKatherine APRN.Rachael Brown RN 02/05/2025 11:13 AM Signed [...] Date Reviewed: 12/24/2024 Reviewed by: Katherine Negrete APRN.CNP - Fully Assessed Reason for Visit: Fatigue [...] 05/28/2024 Encounter Status:Closed by RACHAEL JOHNSON on 01/30/25[facility] 50-52-2539QLLMYcqzlpkii (ROD) SANNA RENDON ([id number]) 1985 F Date Time Provider Department 01/26/25 RACHAEL JOHNSON During your visit today, we [...] Date Reviewed: 12/24/2024 Reviewed by: Katherine Negrete APRN.COUNCILOR - Fully Assessed Prescriptions as of 01/26/2025 [...] 05/28/2024 Encounter Status:Closed by RACHAEL JOHNSON on 01/26/25NoalCTriHealth [facility] HospitalUrinalysis macro (dipstick) panel (U)on 61-82-8309Nkjczavqp, UANegative Negative - 4(70) +++ mg/dLNOMS HealthcareBlood, UANegativeNegative - 50 Max/mcL NOMS HealthcareClarity, UAClearNOMS HealthcareColor, UAYellowNOMS Healthcare Glucose, UANegativeNegative - 2000(110) ++++ mg/dLNOMS HealthcareInterpretation and review of laboratory resultsNormalNOMS HealthcareKetones, UANegativeNegative - 160(16) ++++ mg/dLNOMS HealthcareLeukocytes, UANegativeNegative - 500+++ John/mcLNOMS HealthcareNitrite, UANegativeNegative - PositiveNOMS HealthcarepH, UA65 - 9NOMS HealthcareProtein, UANegativeNegative - 2000(20) ++++ mg/dLNOMS HealthcareSpec Grav, UA1.011 - 1.03NOMS HealthcareUrobilinogen, UA0.20.2 - 12 mg/dLNOMS HealthcareNOMS HealthcareTSHon 71-95-0499UIO Qn1.85 m[IU]/LNormal 0.34-5.60[facility]er [facility] CampusComment on above:Performed By: #### [id number] #### Braulio [facility] [address], [place] [address]Cineoaxvky macro (dipstick) panel (U)on 07-15-7096Hsafncuhz, UA NegativeNegative - 4(70) +++ mg/dLNOMS HealthcareBlood, UANegativeNegative - 50 Max/mcLNOMS HealthcareClarity, UAClearNOMS HealthcareColor, UAYellowNOMS HealthcareGlucose, UANegativeNegative - 2000(110) ++++ mg/dLNOPR Healthcare Interpretation and review of laboratory resultsNormalNOMS HealthcareKetones, UA NegativeNegative - 160(16) ++++ mg/dLNOPR HealthcareLeukocytes, UANegative Negative - 500+++ John/mcLNOPR HealthcareNitrite, UANegativeNegative - Positive NOMS HealthcarepH, UA75 - 9NOMS HealthcareProtein, UANegativeNegative - 2000(20) ++++ mg/dLNOPR HealthcareSpec Grav, UA1.011 - 1.03NOMS HealthcareUrobilinogen, UA1.00.2 - 12 mg/dLNOMS HealthcareNOMS HealthcareCBC W Auto Differential panel (Bld)on 58-70-2976Iuqgkanwu (Bld) [#/Vol]10*3/uLNormal<0.11CProvidence Hospitalment on above:Order Comment: Specimen Type: BLOOD SPECIMENOrdering Facility: [facility] Address:[address] [place], [place] [address]Performed By: #### 78036-4 ####[facility] LABIA [id number] [place], [place] [address]Sljsaakyv/100 WBC (Bld)0.2 % NormalSt. Francis Hospital on above:Order Comment: Specimen Type: BLOOD SPECIMENOrdering Facility: [facility] Address:[address] [place], [place] [address]Performed By: #### 31526-5 ####[facility] LABIA [id number] [place] [address] Differential cell count method Nom (Bld)AutoNormalCTriHealth Good Samaritan Hospital Comment on above:Order Comment: Specimen Type: BLOOD SPECIMENOrdering Facility: [facility] Address:[address] [place] [address] Performed By: #### 88806-6 ####[facility] LABST. [facility] [id number] [place], [place] [address]Pbsfilplrxm (Bld) [#/Vol]0.03 10*3/uLNormal<0.46[facility] on above:Order Comment: Specimen Type: BLOOD SPECIMENOrdering Facility: [facility] Address:[address] [place], [place] [address]Performed By: #### 41467-3 ####[facility] LABIA [id number] [place], [place] [address]Trkndvpsanx/100 WBC (Bld)0.4 %NormalSt. Francis Hospital on above:Order Comment: Specimen Type: BLOOD SPECIMENOrdering Facility: [facility] Address:[address] [place], [place] [address]Performed By: #### 70721-6 ####[facility] LABIA [id number] [place], [place] [address]Bnpyqimwmxd distribution width (RBC) [Ratio]13.5 %Phlpga62.5-15.0[facility] on above: Order Comment: Specimen Type: BLOOD SPECIMENOrdering Facility: [facility] Address:[address] [place], [place] [address]Performed By: #### 65497- 8 ####[facility] LABIA [id number] [place], [place] [address]Uypcyksoxa (Bld) [Volume fraction]34.6 %Low36.0-46.0 [facility] on above:Order Comment: Specimen Type: BLOOD SPECIMENOrdering Facility: [facility] Address:[address] [place], [place] [address]Performed By: #### 00199-7 ####[facility] LABIA [id number] [place], [place] [address]Sdsxabjgpt (Bld) [Mass/Vol]12.0 g/dEGaijac61.5-15.5CKettering Health Behavioral [facility] Center on above: Order Comment: Specimen Type: BLOOD SPECIMENOrdering Facility: [facility] Address:[address] [place], [place] [address]Performed By: #### 65116- 8 ####[facility] LABCLIA [id number] [place], [place] [address]Olluwmyr granulocytes (Bld) [#/Vol]0.04 10*3/uLNormal <0.10[facility] on above:Order Comment: Specimen Type: BLOOD SPECIMENOrdering Facility: [facility] Address:[address] [place], [place] [address]Performed By: #### 36193-6 ####[facility] LABCLIA [id number] [place], [place] [address]Ftzaajik granulocytes/100 WBC (Bld)0.5 %NormalSt. Francis Hospital on above: Order Comment: Specimen Type: BLOOD SPECIMENOrdering Facility: [facility] Address:[address] [place], [place] [address]Performed By: #### 44800- 8 ####[facility] LABCLIA [id number] [place], [place] [address]Sdeejgwrkew (Bld) [#/Vol]2.45 10*3/uLNormal1.00-4.00 [facility] on above:Order Comment: Specimen Type: BLOOD SPECIMENOrdering Facility: [facility] Address:[address] [place], [place] [address]Performed By: #### 33492-3 ####[facility] LABCLIA [id number] [place], [place] [address]Cwhzpnylqdv/100 WBC (Bld)28.7 %NormalSt. Francis Hospital on above:Order Comment: Specimen Type: BLOOD SPECIMENOrdering Facility: [facility] Address:[address] [place], [place] [address]Performed By: #### 92764-0 ####[facility] LABCLIA [id number] [place], [place] [address]SVZ (RBC) [Entitic mass]31.6 zeRozavm21.0-34.0[facility] on above:Order Comment: Specimen Type: BLOOD SPECIMENOrdering Facility: [facility] Address:[address] [place], [place] [address]Performed By: #### 73785-1 ####[facility] LABCLIA [id number] [place], [place] [address]YQJD (RBC) [Mass/Vol]34.7 g/iNKypbsh64.5-36.0[facility] on above: Order Comment: Specimen Type: BLOOD SPECIMENOrdering Facility: [facility] Address:[address] [place], [place] [address]Performed By: #### 79040- 8 ####[facility] LABCLIA [id number] [place], [place] [address]WGJ (RBC) [Entitic vol]91.1 cYRwxmem40.0-100.0[facility] on above:Order Comment: Specimen Type: BLOOD SPECIMENOrdering Facility: [facility] Address:[address] [place], [place] [address]Performed By: #### 76927-4 ####[facility] LABCLIA [id number] [place], [place] [address]Wvarxxnly (Bld) [#/Vol]0.44 10*3/uLNormal<0.87[facility] on above:Order Comment: Specimen Type: BLOOD SPECIMENOrdering Facility: [facility] Address:[address] [place], [place] [address]Performed By: #### 62122- 8 ####[facility] LABCLIA [id number] [place], [place] [address]Icpgatrpt/100 WBC (Bld)5.1 %NormalSt. Francis Hospital on above:Order Comment: Specimen Type: BLOOD SPECIMENOrdering Facility: [facility] Address:[address] [place], [place] [address]Performed By: #### 56549-7 ####[facility] LABIA [id number] [place], [place] [address]Qvtfghdejtx (Bld) [#/Vol]5.57 10*3/uLNormal1.45-7.50[facility] on above:Order Comment: Specimen Type: BLOOD SPECIMENOrdering Facility: [facility] Address:[address] [place], [place] [address]Performed By: #### 73495-6 ####[facility] LABIA [id number] [place], [place] [address]Kairrpixchc/100 WBC (Bld)65.1 %NormalSt. Francis Hospital on above:Order Comment: Specimen Type: BLOOD SPECIMENOrdering Facility: [facility] Address:[address] [place], [place] [address]Performed By: #### 11723-8 ####[facility] LABIA [id number] [place], [place] [address]Reujflagn RBC (Bld) [#/Vol] 10*3/uLNormal<0.01[facility] on above:Order Comment: Specimen Type: BLOOD SPECIMENOrdering Facility: [facility] Address:[address] [place], [place] [address]Performed By: #### 66463-9 ####[facility] LABCLIA [id number] [place], [place] [address]Bpowdarma RBC/100 WBC (Bld) [Ratio]0.0 /[address] [facility] on above:Order Comment: Specimen Type: BLOOD SPECIMENOrdering Facility: [facility] Address:[address] [place], [place] [address]Performed By: #### 34645-1 ####[facility] LABIA [id number] [place], [place] [address]Siwzjftb mean volume (Bld) [Entitic vol]9.7 fLNormal9.0-12.7CKettering Health Behavioral [facility] Center on above:Order Comment: Specimen Type: BLOOD SPECIMENOrdering Facility: [facility] Address:[address] [place] [address] Performed By: #### 94150-6 ####[facility] LABCLIA [id number] [place], [place] [address]Dqzvuklno (Bld) [#/Vol]260 10*3/gMCshucc493-247SlqcdfiouSt. Francis Hospital on above:Order Comment: Specimen Type: BLOOD SPECIMENOrdering Facility: [facility] Address:[address] [place], [place] [address]Performed By: #### 66580-5 ####[facility] LABCLIA [id number] [place], [place] [address]MKN (Bld) [#/Vol]3.80 10*6/uLLow3.90-5.20[facility] on above:Order Comment: Specimen Type: BLOOD SPECIMENOrdering Facility: [facility] Address:[address] [place], [place] [address]Performed By: #### 35331-6 ####[facility] LABCLIA [id number] [place], [place] [address]NET (Bld) [#/Vol]8.55 10*3/uL Normal3.70-11.00[facility] on above:Order Comment: Specimen Type: BLOOD SPECIMENOrdering Facility: [facility] Address:[address] [place], [place] [address]Performed By: #### 28660-8 ####[facility] LABIA [id number] [place], [place] [address]QLQOWHqc 01-64-6243GCMAQTKrxew (SP) Office ([place]) SANNA RENDON ([id number]) 1985 F Date Time Provider Department 12/23/24 11:30 AM KATHERINE NEGRETE During your visit today, we recorded the following information about you: Temperature Pulse Respiration Blood pressure 97.6 degrees 80/minute 16/minute 103/69 Weight Height 94.4 kg 1.677 m Katherine Negrete APRN.COUNCILOR 12/24/2024 9:07 PM Signed NAME: Sanna Rendon CLINIC NO.: [id number] DATE OF SERVICE: December 23, 2024 (Arsh) [...] later in 2018. These were found in [place], [place]. I don't have access to these [...] target-like rash shortly before presenting to [facility] in 2016 with headaches and was [...] restart vitamin D supplementat (more content not included)...Normal [facility] Hospitalprehenve metabolic 2000 panelon 53-16-5330Crnzpyu [Mass/Vol]4.1 g/dLNormal3.9-4.9CKettering [facility] Behavior[facility] on above:Order Comment: Specimen Type: BLOOD SPECIMENOrdering Facility: [facility] Address:[address] [place], [place] [address]Performed By: #### 20788- 8 ####[facility] LABCLIA [id number] [place], [place] [address]JTB [Catalytic activity/Vol]43 U/TPheeso31-499JvvoppbijSt. Francis Hospital on above:Order Comment: Specimen Type: BLOOD SPECIMENOrdering Facility: [facility] Address:[address], [place] [address]Performed By: #### 36377-3 ####[facility] LABCLIA [id number] [place], [place] [address]YEX [Catalytic activity/Vol]11 U/LNormal7-38[facility] on above:Order Comment: Specimen Type: BLOOD SPECIMENOrdering Facility: [facility] Address:[address], [place] [address]Performed By: #### 76557- 8 ####[facility] LABCLIA [id number] [place], [place] [address]Bmqir gap [Moles/Vol]12 mmol/LNormal8-15[facility] on above:Order Comment: Specimen Type: BLOOD SPECIMENOrdering Facility: [facility] Address:[address] [place], [place] [address]Performed By: #### 19164-4 ####[facility] LABCLIA [id number] [facility]UNN[facility] H[facility]TE[place], [place] [address]LAL [Catalytic activity/Vol]12 U/OZjp50-09NfafnlrckSt. Francis Hospital on above:Order Comment: Specimen Type: BLOOD SPECIMENOrdering Facility: [facility] Address:[address] [place], [place] [address]Performed By: #### 02991-6 ####[facility] LABCLIA [id number] [place] [address] Bilirubin [Mass/Vol]0.2 mg/dLNormal0.2-1.3CKet[facility] on above:Order Comment: Specimen Type: BLOOD SPECIMENOrdering Facility: [facility] Address:[address] [place], [place] [address]Performed By: #### 52703-6 ####[facility] LABCLIA [id number] [facility] [place], [place] [address]Chwccwf [Mass/Vol]9.5 mg/dLNormal8.5-10.2CKet[facility] on above:Order Comment: Specimen Type: BLOOD SPECIMENOrdering Facility: [facility] Address:[address] [place], [place] [address]Performed By: #### 03673-6 ####[facility] LABIA [id number] [facility] HOSPITALVANESSAOCEANSIDE, [place] [address]Zprmodjc [Moles/Vol]98 mmol/KWdjxiz01-077YttvuphzgSt. Francis Hospital on above:Order Comment: Specimen Type: BLOOD SPECIMENOrdering Facility: [facility] Address:[address] [place], [place] [address]Performed By: #### 44476- 8 ####[facility] LABCLIA [id number] [place], [place] [address]AZ4 [Moles/Vol]20 mmol/HEbv40-25EmxryylaiSt. Francis Hospital on above:Order Comment: Specimen Type: BLOOD SPECIMENOrdering Facility: [facility] Address:[address] [place], [place] [address]Performed By: #### 30382-3 ####[facility] LABCLIA [id number] [place], [place] [address]Pwvdatcffq [Mass/Vol]0.54 mg/dL Low0.58-0.96[facility] on above:Order Comment: Specimen Type: BLOOD SPECIMENOrdering Facility: [facility] Address:[address] [place], [place] [address]Performed By: #### 53656-3 ####[facility] LABIA [id number] [place] [address] eGFRcr SerPlBld CKD-EPI 3869786 mL/min/1.73m???Normal>=60[facility] on above:Order Comment: Specimen Type: BLOOD SPECIMENOrdering Facility: [facility] Address:[address] [place], [place] [address]Result Comment: Estimated Glomerular Filtration Rate (eGFR) is calculated using the 2020 CKD-EPI creatinine equation. This equation utilizes serum creatinine, sex, and age as parameters. The creatinine assay has traceable calibration to isotope dilution-mass spectrometry. Refer to KDIGO guidelines for clinical interpretation. In patients with unstable renal function, e.g. those with acute kidney injury, the eGFR may not accurately reflect actual GFR. Performed By: #### 47267-9 ####[facility] LABIA [id number] [place], [place] [address]Ihskwee [Mass/Vol]104 mg/dLHigh 74-99[facility] on above:Order Comment: Specimen Type: BLOOD SPECIMENOrdering Facility: [facility] Address:[address] [id number] Comment: The [place] [employer] (ADA) provides guidance for cutoff [...] Standards of Medical Care in Diabetes 2016, [place] [employer]. Diabetes Care. 2016.39(Suppl 1).Performed By: #### 01339-1 ####[facility] LABCLIA [id number] [place], [place] [address]Nrbjgakrn [Moles/Vol]4.0 mmol/LNormal3.7-5.1CKettering Health Behavioral [facility] on above:Order Comment: Specimen Type: BLOOD SPECIMENOrdering Facility: [facility] Address:[address], [place] [address]Performed By: #### 05061-9 ####[facility] LABCLIA [id number] [place], [place] [address]Rqnftni [Mass/Vol]6.7 g/dLNormal6.3-8.0[facility] on above:Order Comment: Specimen Type: BLOOD SPECIMENOrdering Facility: [facility] Address:[address] [place], [place] [address]Performed By: #### 54971- 8 ####[facility] LABCLIA [id number] [place], [place] [address]Aspjhq [Moles/Vol]130 mmol/CYrb268-475GncmphjqsSt. [facility] on above:Order Comment: Specimen Type: BLOOD SPECIMENOrdering Facility: [facility] Address:[address], [place] [address]Performed By: #### [id number] ####[facility] LABCLIA [id number] [place], [place] [address]Vrzn nitrogen [Mass/Vol]7 mg/dL Normal7-21[facility] on above:Order Comment: Specimen Type: BLOOD SPECIMENOrdering Facility: [facility] Address:[address] [place], [place] [address]Performed By: #### [id number] ####[facility] LABCLIA [id number] [place] [address] Ferritin SerPl-mCncon [id number] [Mass/Vol]43.5 ng/xDCyurzz14.7-205.1 [facility] on above:Order Comment: Specimen Type: BLOOD SPECIMENOrdering Facility: [facility] HOSPITAL Address:[address] [place], [place] [address]Performed By: #### 2276-4, 16955-8, 2131-12 ####[facility] LABCLIA [id number] [place] [address] [place] OF AMERICAIron and Iron binding capacity panelon 12-23-2024 Iron [Mass/Vol]80 ug/dPPjxlpc09-888IszyfqbnnSt. Francis Hospital on above: Order Comment: Specimen Type: BLOOD SPECIMENOrdering Facility: [facility] Address:[address] [place], [place] [address]Performed By: #### 2276- 4, 64598-2, 2131-12 ####[facility] LABCLIA [id number] [address] [address] [place] OF AMERICAIron binding capacity [Mass/Vol]437 ug/hOCzhs761-803PhdwhlujsSt. Francis Hospital on above:Order Comment: Specimen Type: BLOOD SPECIMENOrdering Facility: [facility] Address:[address] [place], [place] [address]Performed By: #### 2276-4, 90779-7, 9 ####[facility] LABCLIA [id number] [place] [address] [place] AMERICAIron/TIBC [Molar ratio]18.3 %Wohgob54.0-57.0[facility] on above: Order Comment: Specimen Type: BLOOD SPECIMENOrdering Facility: [facility] Address:[address] [place], [place] [address]Performed By: #### 2276- 4, 17079-4, 2131-12 ####[facility] LABCLIA [id number] E [facility] [place] [address] [place] FISHER-TITUS MEDICAL CENTERVit B12 SerPl-mCncon 60-43-7788Xgwtotoxv (Vitamin B12) [Mass/Vol]328 pg/nAAlkjzp462-4329 [facility] on above:Order Comment: Specimen Type: BLOOD SPECIMENOrdering Facility: [facility] Address:[address] [place], [place] [address]Performed By: #### 2276-4, 99388-6, 2131-12 ####[facility] LABCLIA [id number] [place] [address] [place] OF AMERICATBH UA (CLEAN/CATCH) MANAGER INTERFACE/MICRO IF IND.on 05-95-4563MBUUCNFKA URINENegativeNEGATIVENOMS HealthcareBLOOD URINENegative NEGATIVENOMS HealthcareClarity (U)CLEARCLEARNOMS HealthcareColor (U)LT. YELLOW YELLOWNOPR HealthcareGLUCOSE URINE UANegativeNEGATIVE mg/dLNOPR Healthcare Interpretation and review of laboratory resultsAbnormalNOMS HealthcareKetones Ql (U)NegativeNEGATIVE mg/dLNOPR HealthcareLeukocyte esterase Test strip Ql (U) SMALLAbnormalNEGATIVENOMS HealthcareNITRITE URINENegativeNEGATIVENOMS Healthcare pH (U)6.0 [pH]5.0 - 9.0NOMS HealthcarePROTEIN URINENegativeNEG/TRACE mg/dLNOPR HealthcareSPECIFIC GRAVITY URINE<=1.932Bgigcplp0.005 - 1.025NOMS HealthcareURINE MICROSCOPIC INDICATEDYESNOMS HealthcareUROBILINOGEN URINE0.2 EU/dL0.2 - 1.0 EU/dLNOMS HealthcareCLINISYNCNOMS HealthcareUS OB CERVICAL LENGTHon 12-16-[address] [address] Ultrasound Report Signed Patient: SANNA RENDON MR#: [id number] : 1985 Acct:[id number] Age/Sex: 39 / F ADM Date: Loc: [facility] 251-[address]: Wilton Herrmann D.O. Ordering Physician: Wilton Herrmann D.O. Date of Service: 12/16/24 Procedure(s): US OB cervical length Accession Number(s): [id number] cc: Wilton Herrmann D.O.; PENELOPE CASAS [place] [id number] Patient Name: SANNA RENDON MRN: [id number] date: 1985 Sex: F Assigned Patient Location: [facility] Current Patient Location: Accession/Order Number: [id number] Exam Date: 12/16/2024 20:39 Report Date: 12/16/2024 [...] Beltrán M.D. 12/16/2024 8:41 PM Dictation Location: [place] [address] Electronically authenticated by: [id number] Y Date: 12/16/2024 20:41 Dictated By: Robert Beltrán D.O. Signed By: 12/16/242042 DD/ 40 TD/TT: Steam Engineer:ELVERadiology, Radiologist, - 12/16/[address] [address] Ultrasound Report Signed Patient: SANNA RENDON MR#: [id number] : 1985 Acct:[id number] Age/Sex: 39 / F ADM Date: Loc: [facility] 251-[address]: Wilton Herrmann D.O. Ordering Physician: Wilton Herrmann D.O. Date of Service: 12/16/24 Procedure(s): US OB cervical length Accession Number(s): [id number] cc: Wilton Herrmann D.O.; PENELOPE CASAS [place] [address] Patient Name: SANNA RENDON MRN: [id number] date: 1985 Sex: F Assigned Patient Location: [facility] Current Patient Location: Accession/Order Number: [id number] Exam Date: 12/16/2024 20:39 Report Date: 12/16/2024 [...] Beltrán M.D. 12/16/2024 8:41 PM Dictation Location: [place] [address] Electronically authenticated by: [id number] Y Date: 12/16/2024 20:41 Dictated By: Robert Beltrán D.O. Signed By: 12/16/242042 DD/ 40 TD/TT: Steam Engineer: SHILOH HealthcareRadiology Study observation (narrative)SHILOH HealthcareUS OB CERVICAL LENGTHOrdered By: Radiologist Radiology on 02-98-9606VUJS Healthcare Work Phone: all THYROID STIM HORMONEon 53-09-3093RPZ Qn1.508 m[IU]/LNOMS HealthcareCLINISYNCNOMS HealthcareUrinalysis macro (dipstick) panel (U)on 55-89-1988Cmdjpvtnq, UANegativeNegative - 4(70) +++ mg/dLNOMS Healthcare Blood, UANegativeNegative - 50 Max/mcLNOMS HealthcareClarity, UAClearNOMS HealthcareColor, UAYellowNOMS HealthcareGlucose, UANegativeNegative - 1999(110) ++++ mg/dLNOMS HealthcareInterpretation and review of laboratory resultsNormal NOMS HealthcareKetones, UANegativeNegative - 160(16) ++++ mg/dLNOMS Healthcare Leukocytes, UANegativeNegative - 500+++ John/mcLNOMS HealthcareNitrite, UA NegativeNegative - PositiveNOMS HealthcarepH, UA65 - 9NOMS HealthcareProtein, UA NegativeNegative - 1999(20) ++++ mg/dLNOMS HealthcareSpec Grav, UA1.011 - 1.03 NOMS HealthcareUrobilinogen, UA1.00.2 - 12 mg/dLNOMS HealthcareNOMS Healthcare Urinalysis macro (dipstick) panel (U)on 50-45-6652Magpvodil, UANegativeNegative - 4(70) +++ mg/dLNOMS HealthcareBlood, UANegativeNegative - 50 Max/mcLNOMS HealthcareClarity, UAClearNOMS HealthcareColor, UAYellowNOMS HealthcareGlucose, UANegativeNegative - 1999(110) ++++ mg/dLNOMS HealthcareInterpretation and review of laboratory resultsNormalNOMS HealthcareKetones, UANegativeNegative - 160(16) ++++ mg/dLNOMS HealthcareLeukocytes, UANegativeNegative - 500+++ John/mcL NOMS HealthcareNitrite, UANegativeNegative - PositiveNOMS HealthcarepH, UA6.55 - 9NOMS HealthcareProtein, UANegativeNegative - 1999(20) ++++ mg/dLNOMS HealthcareSpec Grav, UA1.0051 - 1.03NOMS HealthcareUrobilinogen, UA0.20.2 - 12 mg/dLNOMS HealthcareNOMS HealthcareGlucose random or fasting- POCTon 11-19-2024 External Glucose Fasting Or Random (Fbs)94[facility] SystemUrinalysis macro (dipstick) panel (U)on 15-15-6056Mubkzxkhq, UA NegativeNegative - 4(70) +++ mg/dLNOMS HealthcareBlood, UANegativeNegative - 50 Max/mcLNOMS HealthcareClarity, UAClearNOMS HealthcareColor, UAYellowNOMS HealthcareGlucose, UANegativeNegative - 2000(110) ++++ mg/dLNOMS Healthcare Interpretation and review of laboratory resultsNormalNOMS HealthcareKetones, UA NegativeNegative - 160(16) ++++ mg/dLNOPR HealthcareLeukocytes, UANegative Negative - 500+++ John/mcLNOPR HealthcareNitrite, UANegativeNegative - Positive NOMS HealthcarepH, UA75 - 9NOMS HealthcareProtein, UANegativeNegative - 2000(20) ++++ mg/dLNOPR HealthcareSpec Grav, UA1.011 - 1.03NOMS HealthcareUrobilinogen, UA0.20.2 - 12 mg/dLNOMS HealthcareNOMS Hmhkbtstnu87([place])D3 [facility] [address]-gkleguvvzgjzaw D3 [Mass/Vol]32.1 ng/oWBlgqtk07.0-80.0[facility] on above:Order Comment: Specimen Type: BLOOD SPECIMENOrdering Facility: [facility] Address:[address] [place], [place] [address]Result Comment: Classification of 25 [place] Vitamin D status: Deficiency/Insufficiency: < or = 30 ng/ml. Sufficiency/Optimal Levels: 31-80 ng/mL Toxicity: > 100 ng/mL. Test performed by chemiluminescent immunoassay.Performed By: #### 1989-3 ####[facility] LABCLIA [id number] [address] OF [facility] W Auto Differential panel (Bld)on 02-39-5533Fkmayiety (Bld) [#/Vol]0.03 10*3/uLNormal<0.11CKettering Health Behavior[facility] on above:Order Comment: Specimen Type: BLOOD SPECIMENOrdering Facility: [facility] Address:[address] [place], [place] [address]Performed By: #### 61410-8 ####[facility] LABCLIA [id number] [place], [place] [address]Iqzqsavyn/100 WBC (Bld)0.3 % NormalSt. Francis Hospital on above:Order Comment: Specimen Type: BLOOD SPECIMENOrdering Facility: [facility] Address:[address] [place], [place] [address]Performed By: #### 93511-1 ####[facility] LABCLIA [id number] [place] [address] Differential cell count method Nom (Bld)AutoNormalClevelWakeMed Cary Hospital Comment on above:Order Comment: Specimen Type: BLOOD SPECIMENOrdering Facility: [facility] Address:[address] [place] [address] Performed By: #### 12701-2 ####[facility] LABCLIA [id number] [place], [place] [address]Rfzeogupujy (Bld) [#/Vol]0.05 10*3/uLNormal<0.46[facility] on above:Order Comment: Specimen Type: BLOOD SPECIMENOrdering Facility: [facility] Address:[address] [place], [place] [address]Performed By: #### 35785-4 ####[facility] LABCLIA [id number] [place], [place] [address]Txedhbghozd/100 WBC (Bld)0.5 %NormalGuernsey Memorial HospitalCommclaren bay region on above:Order Comment: Specimen Type: BLOOD SPECIMENOrdering Facility: [facility] Address:[address] [place], [place] [address]Performed By: #### 92374-4 ####[facility] LABCLIA [id number] [place], [place] [address]Rcmdzdwwylr distribution width (RBC) [Ratio]14.5 %Iapgwe11.5-15.0[facility] on above: Order Comment: Specimen Type: BLOOD SPECIMENOrdering Facility: [facility] Address:[address] [place], [place] [address]Performed By: #### 57162- 8 ####[facility] LABCLIA [id number] [place], [place] [address]Ptujxomsaq (Bld) [Volume fraction]36.9 %Hzlxyl35.0-46.0 [facility] on above:Order Comment: Specimen Type: BLOOD SPECIMENOrdering Facility: [facility] Address:[address] [place], [place] [address]Performed By: #### 45996-3 ####[facility] LABIA [id number] [place], [place] [address]Crnknyexqu (Bld) [Mass/Vol]13.0 g/qGPqdhxy88.5-15.5CKettering Health Behavioral [facility] Center on above: Order Comment: Specimen Type: BLOOD SPECIMENOrdering Facility: [facility] Address:[address] [place], [place] [address]Performed By: #### 29362- 8 ####[facility] LABIA [id number] [place], [place] [address]Sijidixa granulocytes (Bld) [#/Vol]10*3/uLNormal<0.10 [facility] on above:Order Comment: Specimen Type: BLOOD SPECIMENOrdering Facility: [facility] Address:[address] [place], [place] [address]Performed By: #### 40189-6 ####[facility] LABIA [id number] [place], [place] [address]Afykeeml granulocytes/100 WBC (Bld)0.2 %NormalSt. Francis Hospital on above: Order Comment: Specimen Type: BLOOD SPECIMENOrdering Facility: [facility] Address:[address] [place], [place] [address]Performed By: #### 66926- 8 ####[facility] LABCLIA [id number] [place], [place] [address]Innlqaajcvc (Bld) [#/Vol]2.50 10*3/uLNormal1.00-4.00 [facility] on above:Order Comment: Specimen Type: BLOOD SPECIMENOrdering Facility: [facility] Address:[address] [place], [place] [address]Performed By: #### 85871-5 ####[facility] LABCLIA [id number] [place], [place] [address]Yewimkqhgro/100 WBC (Bld)26.3 %NormalSt. Francis Hospital on above:Order Comment: Specimen Type: BLOOD SPECIMENOrdering Facility: [facility] Address:[address] [place], [place] [address]Performed By: #### 16245-6 ####[facility] LABCLIA [id number] [place], [place] [address]SKU (RBC) [Entitic mass]30.6 auPsiiji15.0-34.0[facility] on above:Order Comment: Specimen Type: BLOOD SPECIMENOrdering Facility: [facility] Address:[address] [place], [place] [address]Performed By: #### 40693-6 ####[facility] LABCLIA [id number] [place], [place] [address]KOPA (RBC) [Mass/Vol]35.2 g/eQYlbkgx33.5-36.0[facility] on above: Order Comment: Specimen Type: BLOOD SPECIMENOrdering Facility: [facility] Address:[address] [place], [place] [address]Performed By: #### 84012- 8 ####[facility] LABIA [id number] [place], [place] [address]UDN (RBC) [Entitic vol]86.8 yDSjakzf95.0-100.0[facility] on above:Order Comment: Specimen Type: BLOOD SPECIMENOrdering Facility: [facility] Address:[address] [place], [place] [address]Performed By: #### 98498-4 ####[facility] LABCLIA [id number] [place], [place] [address]Jntkohkcv (Bld) [#/Vol]0.44 10*3/uLNormal<0.87[facility] on above:Order Comment: Specimen Type: BLOOD SPECIMENOrdering Facility: [facility] Address:[address] [place], [place] [address]Performed By: #### 18940- 8 ####[facility] LABCLIA [id number] [place], [place] [address]Qqxndfeel/100 WBC (Bld)4.6 %NormalSt. Francis Hospital on above:Order Comment: Specimen Type: BLOOD SPECIMENOrdering Facility: [facility] Address:[address] [place], [place] [address]Performed By: #### 81137-6 ####[facility] LABCLIA [id number] [place], [place] [address]Rryhqttgfif (Bld) [#/Vol]6.48 10*3/uLNormal1.45-7.50[facility] on above:Order Comment: Specimen Type: BLOOD SPECIMENOrdering Facility: [facility] Address:[address] [place], [place] [address]Performed By: #### 13216-3 ####[facility] LABCLIA [id number] [place], [place] [address]Vflnykwszsu/100 WBC (Bld)68.1 %NormalSt. Francis Hospital on above:Order Comment: Specimen Type: BLOOD SPECIMENOrdering Facility: [facility] Address:[address] [place], [place] [address]Performed By: #### 17120-6 ####[facility] LABCLIA [id number] [place], [place] [address]Cdihnwlhn RBC (Bld) [#/Vol] 10*3/uLNormal<0.01[facility] on above:Order Comment: Specimen Type: BLOOD SPECIMENOrdering Facility: [facility] Address:[address] [place], [place] [address]Performed By: #### 91437-1 ####[facility] LABCLIA [id number] [place], [place] [address]Bedgifvmh RBC/100 WBC (Bld) [Ratio]0.0 /[address] [facility] on above:Order Comment: Specimen Type: BLOOD SPECIMENOrdering Facility: [facility] Address:[address] [place], [place] [address]Performed By: #### 70802-7 ####[facility] LABIA [id number] [place], [place] [address]Nuhbwbzk mean volume (Bld) [Entitic vol]9.8 fLNormal9.0-12.7CKettering Health Behavioral [facility] on above:Order Comment: Specimen Type: BLOOD SPECIMENOrdering Facility: [facility] Address:[address] [place] [address] Performed By: #### 49865-0 ####[facility] LABIA [id number] [place], [place] [address]Evdqscurj (Bld) [#/Vol]327 10*3/oVIjhhqq016-529DiafijmpdSt. [facility] Hospital on above:Order Comment: Specimen Type: BLOOD SPECIMENOrdering Facility: [facility] Address:[address] [place], [place] [address]Performed By: #### 20771-4 ####[facility] LABCLIA [id number] [place], [place] [address]ODM (Bld) [#/Vol]4.25 10*6/uLNormal3.90-5.20[facility] on above:Order Comment: Specimen Type: BLOOD SPECIMENOrdering Facility: [facility] Address:[address] [place] [address]Qijhnlywi By: #### 55154-4 ####[facility] LABCLIA [id number] [place], [place] [address]WNK (Bld) [#/Vol]9.52 10*3/uLNormal3.70-11.00[facility] on above: Order Comment: Specimen Type: BLOOD SPECIMENOrdering Facility: [facility] Address:[address] [place] [address]Zahiuzxgs By: #### 09617- 8 ####[facility] LABCLIA [id number] [place], [place] [address]SPQURJiv 77-38-4795IVCIJPFtqor (SP) Office (HEMASA) JUSTICE,SANNA ([id number]) 1985 F Date Time Provider Department 10/28/24 2:30 PM KATHERINE NEGRETE HEMASA During your visit today, we recorded the following information about you: Temperature Pulse Respiration Blood pressure 97 degrees 82/minute 16/minute 122/77 Weight Last Period 94.1 kg 10/28/24 Katherine Negrete APRN.COUNCILOR 10/29/2024 9:44 PM Signed NAME: Sanna Rendon CLINIC NO.: [id number] DATE OF SERVICE: October 28, 2024 (Arsh) [...] later in 2018. These were found in [place], [place]. I don't have access to these [...] target-like rash shortly before presenting to [facility] in 2015 with headaches and was [...] negative. Numbness and vi (more content not included)...NormalGuernsey Memorial Hospital Sisi 77-67-7193HOQWOcbpyjzuq ([facility]) SANNA RENDON ([id number]) 1985 F Date Time Provider Department 10/28/24 [...] the plan of care. NELI Buck Holly, APRN.COUNCILOR 11/05/2024 12:33 PM Signed Spoke with Dr. Moscoso and she is to continue Lovenox 40 daily and add baby asa (81 mg) daily. Please also make sure she is following OB High risk. Labs acceptable at this time. Will monitor. Thanks, Katherine Negrete APRN.Rachael Brown, MARSHA 11/05/2024 12:51 PM Signed Pt updated. She reports she is unable to take aspirin. It makes my electrolytes go out of whack. I didn't take with my previous pregnancies and I am not comfortable taking this time either. She will continue with Lovenox, as recommended. 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 She denies further questions, needs or concerns for our care team at this time. Appt verified for RTC Rachael Johnsno RN Allergies As of Date: 10/28/2024 Noted [...] 05/28/2024 Encounter Status:Closed by RACHAEL JOHNSON on 11/05/24NoalCTriHealth Good Samaritan HospitalComprehensive metabolic 2000 panelon 10-45-1672Jobfnkw [Mass/Vol]4.4 g/dLNormal3.9-4.9[facility] ClevelandComment on above:Order Comment: Specimen Type: BLOOD SPECIMENOrdering Facility: [facility] Address:[address] [place], [place] [address]Performed By: #### 11095-4 ####[facility] LABCLIA [id number] FABI [facility]ENCOM[facility] [place], [place] [address]NBF [Catalytic activity/Vol]55 U/HJardqd17-209KvkzvdorjSt. [facility] Hospital on above:Order Comment: Specimen Type: BLOOD SPECIMENOrdering Facility: [facility] Address:[address] [place], [place] [address]Performed By: #### 79003-9 ####[facility] LABCLIA [id number] [place], [place] [address]RJK [Catalytic activity/Vol]18 U/LNormal7-38[facility] on above:Order Comment: Specimen Type: BLOOD SPECIMENOrdering Facility: [facility] Address:[address] [place], [place] [address]Performed By: #### 93571- 8 ####[facility] LABCLIA [id number] [facility] [place], [place] [address]Cklzr gap [Moles/Vol]12 mmol/LNormal8-15[facility] on above:Order Comment: Specimen Type: BLOOD SPECIMENOrdering Facility: [facility] Address:[address] [place], [place] [address]Performed By: #### 84697-8 ####[facility] LABCLIA [id number] BHARAT [place], [place] [address]XRN [Catalytic activity/Vol]13 U/RPacwid41-25UimchsgqcSt. [facility] Hospital on above:Order Comment: Specimen Type: BLOOD SPECIMENOrdering Facility: [facility] Address:[address] [place], [place] [address]Performed By: #### 24923-9 ####[facility] LABCLIA [id number] [place] [address] Bilirubin [Mass/Vol]0.2 mg/dLNormal0.2-1.3CKettering Health Behavior[facility] on above:Order Comment: Specimen Type: BLOOD SPECIMENOrdering Facility: [facility] Address:[address] [place], [place] [address]Performed By: #### 65118-3 ####[facility] LABCLIA [id number] [facility] [place], [place] [address]Gicfiqo [Mass/Vol]9.9 mg/dLNormal8.5-10.2CKettering Health Behavioral [facility] Center on above:Order Comment: Specimen Type: BLOOD SPECIMENOrdering Facility: [facility] Address:[address] [place], [place] [address]Performed By: #### 28736-8 ####[facility] LABCLIA [id number] [facility] JO [facility]EN[facility] [place], [place] [address]Oefaqmge [Moles/Vol]99 mmol/RZmwnfy75-792InxvinaoqSt. [facility] on above:Order Comment: Specimen Type: BLOOD SPECIMENOrdering Facility: [facility] Address:[address] [place], [place] [address]Performed By: #### 99765- 8 ####[facility] LABCLIA [id number] [facility] [place] [address]XL6 [Moles/Vol]22 mmol/DNzihxv21-89MydwybgdlSt. Francis Hospital on above:Order Comment: Specimen Type: BLOOD SPECIMENOrdering Facility: [facility] Address:[address] [place], [place] [address]Performed By: #### 94319-0 ####[facility] LABCLIA [id number] [facility] JO [facility]ENCOM[facility] [place], [place] [address]Foeeryndzd [Mass/Vol]0.60 mg/dL Normal0.58-0.96[facility] on above:Order Comment: Specimen Type: BLOOD SPECIMENOrdering Facility: [facility] Address:[address] [place], [place] [address]Performed By: #### 97821-1 ####[facility] LABCLIA [id number] [place], [place] [address]Evtoufqjkb and Glomerular filtration rate.predicted panel (S/P/Bld)117 mL/min/1.73m???Normal>=60[facility] on above:Order Comment: Specimen Type: BLOOD SPECIMENOrdering Facility: [facility] Address:[address] [place], [place] [address]Result Comment: Estimated Glomerular Filtration Rate (eGFR) is calculated using the 2020 CKD-EPI creatinine equation. This equation utilizes serum creatinine, sex, and age as parameters. The creatinine assay has traceable calibration to isotope dilution- mass spectrometry. Refer to KDIGO guidelines for clinical interpretation. In patients with unstable renal function, e.g. those with acute kidney injury, the eGFR may not accurately reflect actual GFR.Performed By: #### 76228-2 ####[facility] LABCLIA [id number] [place], [place] [address]Fcmjkdo [Mass/Vol]101 mg/dFIaul89-02TeotffmkuSt. [facility] Hospital on above:Order Comment: Specimen Type: BLOOD SPECIMENOrdering Facility: [facility] Address:[address] [place] [address] Comment: The [place] Diabetes Association (ADA) provides guidance for cutoff values for fasting glucose and random glucose. The ADA defines fasting as no caloric intake for at least 8 hours. Fasting plasma glucose results between 100 to 125 mg/dL indicate increased risk for diabetes (prediab etes). Fasting plasma glucose results greater than or [...] Standards of Medical Care in Diabetes 2016, [place] [employer]. Diabetes Care. 2016.39(Suppl 1).Performed By: #### 23494-1 ####[facility] LABCLIA [id number] [place], [place] [address]Ddbpdzuvh [Moles/Vol]3.5 mmol/LLow3.7-5.1CKettering Health Behavioral Medical Center on above:Order Comment: Specimen Type: BLOOD SPECIMENOrdering Facility: [facility] Address:[address] [place], [place] [address]Performed By: #### 38601-7 ####[facility] LABCLIA [id number] [place], [place] [address]Dpcpund [Mass/Vol]7.6 g/dL Normal6.3-8.0[facility] on above:Order Comment: Specimen Type: BLOOD SPECIMENOrdering Facility: [facility] Address:[address] [place], [place] [address]Performed By: #### 98532-6 ####[facility] LABCLIA [id number] [place] [address] Sodium [Moles/Vol]133 mmol/LQoy271-294LzzemrvszSt. [facility] on above:Order Comment: Specimen Type: BLOOD SPECIMENOrdering Facility: [facility] Address:[address] [place], [place] [address]Performed By: #### 16491-8 ####[facility] LABCLIA [id number] [place], [place] [address]Cidb nitrogen [Mass/Vol]7 mg/dLNormal7-21[facility] on above:Order Comment: Specimen Type: BLOOD SPECIMENOrdering Facility: [facility] Address:[address] [place], [place] [address]Performed By: #### 05356-8 ####[facility] LABIA [id number] [place], [place] [address]Auxbftjm Phillipl-Joseon 15-81-0519Okyidrau [Mass/Vol]99.6 ng/rADofzhq96.7-205.1CK[facility] on above:Order Comment: Specimen Type: BLOOD SPECIMENOrdering Facility: [facility] Address:[address] [place] [address]Tbnpfjxql By: #### 2276-4, 2131-9, 20241-5, 3016-3 ####[facility] LABIA [id number] [place] [id number] [place] OF AMERICAIron and Iron binding capacity panelon 46-61-3047Mwtd [Mass/Vol]72 ug/oVKkmeox68-763OkypdreozGuernsey Memorial Hospital Comment on above:Order Comment: Specimen Type: BLOOD SPECIMENOrdering Facility: [facility] Address:[address] [place], [place] [id number] Performed By: #### 2276-4, 2131-9, 99548-0, 3016-3 ####[facility] LABIA [id number] [address] STATES OF FISHER-TITUS MEDICAL CENTERIron binding capacity [Mass/Vol]399 ug/rBRmnp575-377RkuboovogGuernsey Memorial HospitalComment on above:Order Comment: Specimen Type: BLOOD SPECIMENOrdering Facility: [facility] Address:[address] [place], [place] [address]Performed By: #### 2276-4, 2131-9, 20093-8, 3016-3 ####[facility] LABIA [id number] [place] [id number] [place] OF AMERICAIron/TIBC [Molar ratio]18.0 % Sbxqtf38.0-57.0Guernsey Memorial HospitalCommclaren bay region on above:Order Comment: Specimen Type: BLOOD SPECIMENOrdering Facility: [facility] Address:[address] [place], [place] [address]Performed By: #### 2276-4, 2131-9, 05511-5, 3016-3 ####[facility] LABIA [id number] [place] [id number] [place] OF AMERICATSHon 10-28-2024 Thyroid Stimulating (3Rd Generation) Hormone/ Tsh1.25[facility] SerPl-aCncon 98-09-5131IXH Qn1.250 m[IU]/LNormal 0.270-4.200[facility] on above:Order Comment: Specimen Type: BLOOD SPECIMENOrdering Facility: [facility] Address:[address] [place], [place] [address] [id number] Comment: If the patient is , TSH reference range varies by gestational period: First Trimester (weeks 9-12): 0.180-2.990 mIU/L Second Trimester: 0.110-3.980 mIU/L Third Trimester: 0.480-4.710 mIU/L Danny Varela et al. A Practical Approach for the Verifications and Determination of Site- and Trimester-Specific Reference Intervals for Thyroid Function tests in . Thyroid, 2019:29:3:412-420.Saeed Pan, et al. 2017 Guidelines of the [place] [employer] for the Diagnosis and Management of Thyroid Disease during and the . Thyroid, 2017:27:3:315-389. Performed By: #### 2276-4, 2132-9, 80223-0, 3016-3 ####[facility] LABCLIA [id number] [place] [id number] [place] STATES OF FISHER-TITUS MEDICAL CENTERVit B12 SerPl-[facility] 77-58-9242Uorpmnemk (Vitamin B12) [Mass/Vol]483 pg/yQZtpiws536-6387HafxtrcmhKettering Health Behavioral Medical Center on above: Order Comment: Specimen Type: BLOOD SPECIMENOrdering Facility: [facility] Address:[address] [place], [place] [address] [id number] By: #### 2276- 4, 2-9, 74194-9, 3016-3 ####[facility] LABCLIA [id number] STATES OF AMERICACNPNon 19-44-8003KRLMLbiqhemyj (HEMASA) SANNA RENDON ([id number]) 1985 F Date Time Provider Department 10/24/24 [...] Date Reviewed: 08/26/2024 Reviewed by: Katherine Negrete APRN.COUNCILOR - Fully Assessed Reason for Visit: Lab Orders [0128] Prescriptions as of 10/24/2024 - enoxaparin (LOVENOX) [...] D deficiency [E55.9] 05/28/2024 Encounter Status:Closed by KARU DUNHAM on 10/24/24[facility] OB TRANSVAGINALon 83-50-7823RN OB TRANSVAGINALEXAM: US OB TRANSVAGINAL HISTORY: Viability, history of [...] to a gestational age of 11 weeks 6days (+/- 7 days). There is no subchorionic hemorrhage visualized. A yolk sac is visualized. IMPRESSION: 1. Single, live intrauterine gestation 12 weeks, 0 days by LMP. Today's ultrasound measurements correlate with a gestational age of 11 weeks 6 days (+/- 7 days). KLAUDIA by today's ultrasound is 05/05/2025. Interpreted by: Electronically signed by CARLOS AHMADI II, MD, PHD at 21-Oct-2024 08:31:21 AM All-[facility] TeleradiologyNormalNot AvailableComment on above:Order Comment: US OB VIABILITY PLEASE PERFORM TRANSVAGINAL ULTRASOUND IF INDICATED No LMP recorded.ALL CBC WITH AUTO DIFFon 09-08-3065GKUZWCTZG ABSOLUTE TGRD3TDJL HealthcareBasophils/100 WBC (Bld)0.2 %0.2 - 2.0 %NOMS HealthcareEosinophils/100 WBC (Bld)0.4 %Low0.9 - 7.0 %Ell[facility] Fischel Cancer CenterErythrocyte distribution width (RBC) [Ratio]14 %11.0 - 15.0 %NOMTenet St. LouisHematocrit (Bld) [Volume fraction]38.1 % 36.0 - 48.0 %[facility] Fischel Cancer CenterHemoglobin (Bld) [Mass/Vol]13.2 g/dL12.0 - 16.0 g/dL [facility]ische[facility] Cancer CenterIMMATURE GRANULOCYTES ABS AUTO0.03NOWestern Missouri Medical CenterImmature granulocytes/100 WBC (Bld)0.3 %0.0 - 0.5 %[facility] Cancer CenterInterpretation and review of laboratory resultsAbnormalEllis Fischel Cancer CenterLYMPHOCYTES ABSOLUTE AUTO2.[address] LouisLymphocytes/100 WBC (Bld)29.1 %20.5 - 60.0 %[facility] Health SystemsH (RBC) [Entitic mass]29.9 pg26.7 - 34.0 pgNOSaint Mary's Hospital of Blue SpringsHC (RBC) [Mass/Vol] 34.6 g/dL29.9 - 35.2 g/dLPemiscot Memorial Health SystemsV (RBC) [Entitic vol]86.2 fL81.0 - 99.0 fLEllis Fischel Cancer CenterMONOCYTES ABSOLUTE AUTO0.6NOWestern Missouri Medical CenterMonocytes/100 WBC (Bld)7.2 %1.7 - 12.0 %[facility] Cancer CenterNEUTROPHILS ABSOLUTE AUTO5.6NOWestern [facility] Neutrophils/100 WBC (Bld)62.8 %43.0 - 75.0 %[facility] Fischel Cancer CenterPlatelet mean volume (Bld) [Entitic vol]10.1 fL9.5 - 13.5 fLEllis Fischel Cancer CenterTBH EO #0NOMS Healthcare TBH [id number] hospital springfield RBC4.42NOMercy hospital springfield WBC8.9NOWestern [facility] CLINISYNCDrug Screen, Urineon 78-21-5146Uqfbotbrtky/MethamphetamineNegative [facility] Health SystemBarbituratesNegativeProMedica Health System BenzodiazepinesNegativeProMedica Health SystemCocaine MetaboliteNegative [facility] SystemEcstasyNegativeProMedica Health SystemMethadoneNegative [facility] SystemOpiatesNegativeProMedica Health SystemOxycodoneNegative [facility] SystemPhencyclidineNegativeProMedica Health SystemThc Marijuana, UrineNegativeProSt. Mary'[facility] SystemHBV surface Ag IA Qlon 10-06-2024 Hepatitis B Surface AntigenNegativeAultman Alliance Community Hospital SystemHIV 1+2 Ab+HIV1 p24 Ag IA Qlon 79-80-2712NVP 1&2 AB/AGNegativeAultman Alliance Community Hospital SystemHemoglobin A1con 81-62-2347YwE2b (Bld) [Mass fraction]5.9 %4.0 - 6.0 %[facility] Health SystemNo Panel Informationon 44-84-8309YGWD HealthcareTSHon 42-79-0094Pogugto Stimulating (3Rd Generation) Hormone/ Tsh1.131ProSt. Mary'S [facility]ont[facility] Campus SystemType and screenon 03-79-8561Nfi/Rh(D)NegativeProSt. Mary'S [facility] Campus SystemHCG ( test) Ql (U)on 26-61-0723Suwjqioysbtmpm and review of laboratory resultsAbnormalNOMS Healthcare Preg Test, UrPositiveNegativeNOMS HealthcareNOMS HealthcareUrinalysis macro (dipstick) panel (U)on 06-89-2549Wnehxugot, UANegativeNegative - 4(70) +++ mg/dL NOMS HealthcareBlood, UANegativeNegative - 50 Max/mcLNOMS HealthcareClarity, UA ClearNOMS HealthcareColor, UAYellowNOMS HealthcareGlucose, UANegativeNegative - 2000(110) ++++ mg/dLNOMS HealthcareInterpretation and review of laboratory resultsNormalNOMS HealthcareKetones, UANegativeNegative - 160(16) ++++ mg/dLNOMS HealthcareLeukocytes, UANegativeNegative - 500+++ John/mcLNOMS HealthcareNitrite, UANegativeNegative - PositiveNOMS HealthcarepH, UA65 - 9NOMS HealthcareProtein, UANegativeNegative - 2000(20) ++++ mg/dLNOMS HealthcareSpec Grav, UA1.0251 - 1.03NOMS HealthcareUrobilinogen, UA0.20.2 - 12 mg/dLNOMS HealthcareNOMS HealthcareUS OB TRANSVAGINALon 58-59-9150[place] [address] Ultrasound Report Signed Patient: SANNA RENDON MR#: [id number] : 1985 Acct:[id number] Age/Sex: 38 / F ADM Date: 09/11/24 Loc: US Attending Dr: Wilton Herrmann D.O. Ordering Physician: Wilton Herrmann D.O. Date of Service: 09/11/24 Procedure(s): US OB transvaginal Accession Number(s): [id number] cc: Wilton Herrmann D.O.; PENELOPE CASAS [place] [address] Patient Name: SANNA RENDON MRN: [id number] date: 1985 Sex: F Assigned Patient Location: US Current Patient Location: US Accession/Order Number: [id number] Exam Date: 09/11/2024 11:34 Report Date: 09/11/2024 [...] Montano M.D. 09/11/2024 11:36 AM Dictation Location: [place] [address] Electronically authenticated by: [id number] Y Date: 09/11/2024 11:36 Dictated By: Prudence Montano M.D. Signed By: 09/11/24 1138 DD/ 1136 TD/TT: Steam Engineer:TBHRadiology, Radiologist, - 09/11/2024 [place] [address] Ultrasound Report Signed Patient: SANNA RENDON MR#: [id number] : 1985 Acct:[id number] Age/Sex: 38 / F ADM Date: 09/11/24 Loc: US Attending Dr: Wilton Herrmann D.O. Ordering Physician: Wilton Herrmann D.O. Date of Service: 09/11/24 Procedure(s): US OB transvaginal Accession Number(s): [id number] cc: Wilton Herrmann D.O.; PENELOPE CASAS [place] [address] Patient Name: SANNA RENDON MRN: [id number] date: 1985 Sex: F Assigned Patient Location: US Current Patient Location: US Accession/Order Number: [id number] Exam Date: 09/11/2024 11:34 Report Date: 09/11/2024 [...] Montano M.D. 09/11/2024 11:36 AM Dictation Location: [facility] Electronically authenticated by: [id number] Y Date: 09/11/2024 11:36 Dictated By: Prudence Montano M.D. Signed By: 09/11/24 1138 DD/ 1136 TD/TT: Steam Engineer: SHILOH HealthcareRadiology Study observation (narrative)SHILOH HealthcareUS OB TRANSVAGINALOrdered By: Radiologist Radiology on 50-40-4295TQEW Healthcare Work Phone: bhcg Quanton 03-53-7928GXH.beta subunit Ov93689 m[IU]/mLHigh1-3[facility] Midtown CampusComment on above:Result Comment: 'F NON < 1 - 3' ' 0.2 - 1 WEEK = 5 TO 50' ' 1 - 2 WEEKS = 50 - 500' ' 2 - 3 WEEKS = 100 - 5000' ' 3 - 4 WEEKS = 500 - 29499' ' 4 - 5 WEEKS = 1000 - 09191' ' 5 - 6 WEEKS = 96230 - 245584' ' 6 - 8 WEEKS = 83511 - 460920' ' 8 - 12 WEEKS = 84635 - 946374'Performed By: #### [id number] #### [facility] [address] [place], [place] [address]Hiwbqqekhd Visit Summaryon 61-97-4855Txqvsfpzgp Visit Summary Ambulatory Visit Summary JUSTICESANNA ROOT :1985 Visit Date:09/07/2024 Ambulatory Visit Instructions Your Diagnosis Viral URI with cough Cough Your Care Team Attending Physician - Romulo Chiu PA-C Primary Care Physician - Penelope CASAS DO, FAAFP This Is Your Medications List Contact prescribing physician if questions or concerns enoxaparin (Lovenox 40 mg/0.4 mL Injection) ergocalciferol (Vitamin D) fluticasone nasal (Flonase 0.05 mg/inh [place]) levothyroxine (levothyroxine 25 mcg (0.025 mg) Tab) [...] EDT With: Penelope CASAS DO, FAAFP Where: [facility] [address], [place] [address]- Medications What How Much When Instructions Unchanged enoxaparin (Lovenox 40 mg/ 0.4 mL Injection) 40 Milligram Subcutaneous Every 24 hours Contact prescribing physician if questions or concerns Unchanged ergocalciferol (Vitamin D) 2,000 International unit By Mouth Every week Contact prescribing physician if questions or concerns Unchanged fluticasone nasal (Flonase 0.05 mg/ inh [place]don) 2 Sprays Nasal Inhalation Every day each [...] you for choosing us for your care. [facility] Medicine Office/Clinic Noteon 29-85-0716Sdfueo Medicine Office/Clinic NoteFacharles river hospital Medicine Office/Clinic Note Chief Complaint cough, sinus [...] created with voice recognition software. Occasional wrong-word or???iryon-w-wnjd??? substitutions may have occurred due to the inherent limitations of voice recognition software. 38 yo female with hx of antiphospholipid syndrome, autoimmune hypothyroidism, CVA, NEETA, prediabetes, palpitations, presents today with cc of stuffy nose, cough, tightness in chest. Pt is currently , approximately 5 weeks gestation G 8 P 4. Patient states she had a miscarriage in April at a pproximately 14 weeks gestation. Patient states symptoms started on Sunday x 4 days ago. States that 2 of her kids had similar cough and cold-like symptoms and her youngest recently had croup. Started with cold-like symptoms stuffy nose sore throat head congestion pressure. States cough she justnoticed yesterday. States cough is dry nonproductive. States that her cough is making her nauseated. She denies any fever or chills. States she has had pneumonia in the past. Was treated for pneumonia in January 2024. Patient states she noted on her phone that her oxygen dropped when she was layingdown flat. Is unsure if this is related to current but again only 5 weeks gestation. Patient states with her symptoms starting on Sunday they seem to worsen x 2 days ago on Sunday. Has been using ejtr-esx-vvhkddj cough drops and Flonase for her allergies. Pt states she feels her cough is causing tightness more so in her throat and actually in her chest denies any chest pain shortnessof breath or difficulty breathing. Denies history of [...] with being 5 weeks gestation. Patient and husbandare both understanding and agreement to continue fluids rest and supportive management. 1. Viral URI with cough (J06.9: Acute upper respiratory infection, unspecified) Discussed exam and hx are consistent with viral illness. Advised of typical duration. Discussed antibiotics un (more content not included)...[facility] CenterComment on above:Result Comment: Electronically Signed By: Aram QUINTEROS, Romulo Lynn\.br\Date and Time Signed: 09/07/2509:46 [place] 58-10-9206LOBJCqsbeijpd (ROD) SANNA RENDON ([id number]) 1985 F Date Time Provider Department 09/02/24 RACHAEL JOHNSON During your visit today, we recorded the following information about you: Rachael Johnson, MARSHA 09/02/2024 9:53 AM Signed Pt left a [...] Date Reviewed: 08/26/2024 Reviewed by: Katherine Negrete APRN.COUNCILOR - Fully Assessed Reason for Visit: Patient [...] 05/28/2024 Encounter Status:Closed by RACHAEL JOHNSON on 09/03/24[facility] Quanton 51-37-3766ZMQ.beta subunit Qn558 m[IU]/mLHigh1-3FWVUMedicine Harrison Community HospitalComment on above:Result Comment: 'F NON < 1 - 3' ' 0.2 - 1 WEEK = 5 TO 50' ' 1 - 2 WEEKS = 50 - 500' ' 2 - 3 WEEKS = 100 - 5000' ' 3 - 4 WEEKS = 500 - 00173' ' 4 - 5 WEEKS = 1000 - 09259' ' 5 - 6 WEEKS = 84060 - 421800' ' 6 - 8 WEEKS = 05541 - 277966' ' 8 - 12 WEEKS = 48201 - 180848'Performed By: #### [id number] #### [facility] [address], [place] [address]GwBY Quanton 85-68-2458ENF.beta subunit Qn188 m[IU]/mLHigh1-3 [facility] Medical CenterComment on above:Result Comment: 'F NON < 1 - 3' ' 0.2 - 1 WEEK = 5 TO 50' ' 1 - 2 WEEKS = 50 - 500' ' 2 - 3 WEEKS = 100 - 5000' ' 3 - 4 WEEKS = 500 - 00558' ' 4 - 5 WEEKS = 1000 - 28147' ' 5 - 6 WEEKS = 62866 - 563483' ' 6 - 8 WEEKS = 26295 - 856035' ' 8 - 12 WEEKS = 64476 - 901216'Performed By: #### [id number] #### [facility] [address], [place] [address]HJINri 54-89-1050AQFKOtcsyebti (HEMASA) SANNA RENDON ([id number]) 1985 F Date Time Provider Department 08/26/24 [...] Date Reviewed: 08/26/2024 Reviewed by: Katherine Negrete APRN.COUNCILOR - Fully Assessed Reason for Visit: Lab Orders [1688] Primary Visit Diagnosis:Antiphospholipid antibody positive [R76.0] Other Visit Diagnoses: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] Malaise and fatigue [R53.81, R53.83] Vitamin D deficiency [E55.9] Order(s):COMPLETE BLOOD COUNT AND DIFFERENTIAL [SQCBCDIF] Order #: [id number] FUTURE COMPREHENSIVE METABOLIC PANEL [SQCMP] Order #: [id number] FUTURE THYROID STIMULATING HORMONE [SQTSH] Order #: [id number] FUTURE IRON AND TIBC [SQIRON] Order #: [id number] FUTURE FERRITIN [SQFERR] Order #: [id number] FUTURE VITAMIN D 25 HYDROXY [SQVITD] Order #: [id number] FUTURE VITAMIN B12 [SQB12] Order #: [id number] FUTURE Prescriptions as of 08/26/2024 - enoxaparin [...] 05/28/2024 Encounter Status:Closed by KATHERINE NEGRETE on 08/26/24NoUniversity Hospitals Health System Quanton 14-93-7349SPX.beta subunit Qn83 m[IU]/mLHigh1-3FWVUMedicine Harrison Community HospitalComment on above:Result Comment: 'F NON < 1 - 3' ' 0.2 - 1 WEEK = 5 TO 50' ' 1 - 2 WEEKS = 50 - 500' ' 2 - 3 WEEKS = 100 - 5000' ' 3 - 4 WEEKS = 500 - 41327' ' 4 - 5 WEEKS = 1000 - 79505' ' 5 - 6 WEEKS = 57567 - 770757' ' 6 - 8 WEEKS = 35210 - 408049' ' 8 - 12 WEEKS = 73234 - 626179'Performed By: #### [id number] #### [facility] [address], [place] [address]YcUA Quanton 78-73-8878JBG.beta subunit Qn22 m[IU]/mLHigh1-3 [facility] Medical CenterComment on above:Result Comment: 'F NON < 1 - 3' ' 0.2 - 1 WEEK = 5 TO 50' ' 1 - 2 WEEKS = 50 - 500' ' 2 - 3 WEEKS = 100 - 5000' ' 3 - 4 WEEKS = 500 - 11742' ' 4 - 5 WEEKS = 1000 - 90691' ' 5 - 6 WEEKS = 02821 - 118595' ' 6 - 8 WEEKS = 21635 - 000444' ' 8 - 12 WEEKS = 30556 - 436215'Performed By: #### [id number] #### [facility] [address] [place], [place] [address]UJKUPRPFJOukdbid By: SYSTEM SYSTEM on 35-76-3839GTA.beta subunit Qn22 m[IU]/mLHigh1 - 3 mIU/mLRemisol ChemComment on above:Result Comment: 'F NON < 1 - 3' ' 0.2 - 1 WEEK = 5 TO 50' ' 1 - 2 WEEKS = 50 - 500' ' 2 - 3 WEEKS = 100 - 5000' ' 3 - 4 WEEKS = 500 - 28942' ' 4 - 5 WEEKS = 1000 - 30460' ' 5 - 6 WEEKS = 64164 - 356121' ' 6 - 8 WEEKS = 26913 - 702494' ' 8 - 12 WEEKS = 65999 - 771762'TSH Qn1.86 m[IU]/LNormal0.34 - 5.60 mcIU/mLRemisol ChemTSHon 52-67-7949MFT Qn1.86 m[IU]/LNormal0.34-5.60AlecUPMC Western MarylandComment on above:Performed By: #### [id number] #### [facility] [address], [place] [address]YBN ( test) Ql (U)on 61-06-4971Aaujcdlirywkjw and review of laboratory resultsNormalEllis Fischel Cancer CenterPreg Test, UrNegativeNegative [facility].Interpretation:on 76-12-4610JYN Ab IA QlComment Invalid Interpretation [facility] District HospitalComment on above:Result Comment: Not infected with HCV unless early or acute infection is suspected (which may be delayed in an immunocompromised individual), or other evidence exists to indicate HCV infection. Performed at: [address] [id number] PhD Jd Garciaformed By: #### [id number] #### [facility] [address] [place] [address]TRU Antibody RFX to Quant PCRon 45-00-7806PJN Ab IA Ql Non-ReactiveInvalid Interpretation CodeNon ReactiveKettering Health – Soin Medical Center Comment on above:Result Comment: Performed at: [address] [id number] PhD Jd Garciaformed By: #### [id number] #### [facility] [address] [place] [address]THK Screen 4th Generation wRfxon 06-76-3299ULB 1+2 Ab+HIV1 p24 Ag IA QlNon-ReactiveInvalid Interpretation CodeNon ReactiveKettering Health – Soin Medical CenterComment on above:Result Comment: HIV-1/HIV-2 antibodies and HIV-1 p24 antigen were NOT detected. There is no laboratory evidence of HIV infection. HIV Negative Performed at: [address] [id number] PhD Jd Garciaformed By: #### [id number] #### [facility] [address] [place] [address]Hot Be Agon 94-10-6221UGG e Ag IA QlNegativeInvalid Interpretation CodeNegativeKettering Health – Soin Medical CenterComment on above:Result Comment: Performed at: [address], [place] [id number] PhD Santoshmorgan county arh hospitaleverton Garciaformed By: #### [id number] #### [facility] [address], [place] [address]Vit Bs Agon 46-00-8799WHV surface Ag IA QlNegativeInvalid Interpretation CodeNegativeFisher [facility] CampusComment on above:Result Comment: Performed at: [facility] [address] [place], [place] [id number] PhD Jd Garciaformed By: #### [id number] #### [facility] [address], [place] [address]VISJKCCSHXupxdqr By: SYSTEM SYSTEM on 62-09-5413Hndgqwl [Mass/Vol]5.0 g/dLNormal3.3 - 5.0 gm/dLRemisol ChemAlbumin/Globulin [Mass ratio] 1.6 {ratio}Normal1.1 - 2.2Remisol ChemALP [Catalytic activity/Vol]49 [iU]/d Yofbac16 - 98 Int._Unit/LRemisol ChemALT No additional P-5'-P [Catalytic activity/Vol]18 [iU]/dNormal6 - 46 Int._Unit/LRemisol ChemAnion gap [Moles/Vol] 13 mmol/LNormal6 - 16 mEq/LRemisol ChemAST [Catalytic activity/Vol]15 [iU]/d Normal5 - 43 Int._Unit/LRemisol ChemBilirubin [Mass/Vol]0.4 mg/dLNormal0.0 - 1.1 mg/dLRemisol ChemCalcium [Mass/Vol]10.0 mg/dLNormal8.9 - 11.1 mg/dLRemisol Chem Chloride [Moles/Vol]100 mmol/UKpu706 - 111 mmol/LRemisol ChemCO2 [Moles/Vol]25 mmol/PGcmwsd02 - 31 mmol/LRemisol ChemCreatinine [Mass/Vol]0.7 mg/dLNormal0.5 - 1.3 mg/dLRemisol ArbdaLUQ770 mL/min/1.73 t8Eherdh>=59mL/min/1.73 m2Uzkzowy Chem Globulin (S) [Mass/Vol]3.1 g/dLNormal1.4 - 4.0 gm/dLRemisol ChemGlucose [Mass/Vol]82 mg/yAAdzpux48 - 199 mg/dLRemisol ChemPotassium [Moles/Vol]3.8 mmol/LNormal3.5 - 5.3 mmol/LRemisol ChemProtein [Mass/Vol]8.1 g/dLHigh6.0 - 7.8 gm/dLRemisol ChemSodium [Moles/Vol]134 mmol/UQcp142 - 145 mmol/LRemisol ChemUrea nitrogen [Mass/Vol]7 mg/dLNormal5 - 21 mg/dLRemisol ChemUrea nitrogen/Creatinine [Mass ratio]10 mg/yjJukian19 - 20Remisol ChemCMPon 43-95-1453Fpgrbxy [Mass/Vol]5.0 g/dLNormal3.3-5.0[facility] Comment on above:Performed By: #### [id number] #### [facility] [address], [place] [address]Gagjgpt/Globulin (S) [Mass conc ratio]1.3Wkbdom7.1-2.2FWVUMedicine Harrison Community HospitalComment on above:Performed By: #### [id number] #### [facility] [address], [place] [address]RBF [Catalytic activity/Vol]49 Int._Unit/NQmruqc02-76YrqogmKettering Health – Soin Medical CenterComment on above:Performed By: #### [id number] #### [facility] [address], [place] [address]XQC No additional P-5'-P [Catalytic activity/Vol]18 Int._Unit/L Normal6-46[facility] Medical CenterComment on above:Performed By: #### [id number] #### [facility] [address], [place] [address]Nrnaw gap [Moles/Vol]13 mmol/LNormal6-16[facility] Medical CenterComment on above:Performed By: #### [id number] #### [facility] [address], [place] [address]NBR [Catalytic activity/Vol]15 Int._Unit/LNormal5-43[facility] Medical CenterComment on above:Performed By: #### [id number] #### [facility] [address], [place] [address]Atyedqotv [Mass/Vol]0.4 mg/dLNormal0.0-1.1FWVUMedicine Harrison Community HospitalComment on above:Performed By: #### [id number] #### [facility] [address], [place] [address]Ehujenv [Mass/Vol]10.0 mg/dLNormal8.9-11.1FWVUMedicine Harrison Community HospitalComment on above:Performed By: #### [id number] #### [facility] [address], [place] [address]Uucvzdps [Moles/Vol]100 mmol/CHvq749-788RfklflKettering Health – Soin Medical CenterComment on above:Performed By: #### [id number] #### [facility] [address], [place] [address]JU7 [Moles/Vol]25 mmol/GBzsyqr65-22RmymhaKettering Health – Soin Medical Center Comment on above:Performed By: #### [id number] #### [facility] [address], [place] [address]Ydskphkjdl [Mass/Vol]0.7 mg/dLNormal0.5-1.3FWVUMedicine Harrison Community HospitalComment on above:Performed By: #### [id number] #### [facility] [address], [place] [address]Cnlxmixp (S) [Mass/Vol]3.1 g/dLNormal1.4-4.0[facility] Medical CenterComment on above:Performed By: #### [id number] #### [facility] [address], [place] [address]Bwyevrd [Mass/Vol]82 mg/yXSaupcm74-664FjtrwtKettering Health – Soin Medical CenterComment on above:Performed By: #### [id number] #### [facility] [address], [place] [address]Cdbqidgkd [Moles/Vol]3.8 mmol/LNormal3.5-5.3[facility] CampusComment on above:Performed By: #### [id number] #### [facility] [address], [place] [address]Kdqvmug [Mass/Vol]8.1 g/dLHigh6.0-7.8[facility] So[facility] Medical CenterComment on above:Performed By: #### [id number] #### [facility] [address], [place] [address]Mpbuqr [Moles/Vol]134 mmol/DAff969-149EehmluKettering Health – Soin Medical CenterComment on above:Performed By: #### [id number] #### [facility] [address] [address]Ndqe nitrogen [Mass/Vol]7 mg/dLNormal5-21[facility] CenterComment on above:Performed By: #### [id number] #### [facility] [address], [place] [address]Sact nitrogen/Creatinine [Mass ratio]10 No VstcpQywrda27-02 [facility] CenterComment on above:Performed By: #### [id number] #### [facility] [address], [place] [address]lOQJeb 45-78-3899oMJJ214 mL/min/1.73 r3Mcbgqz>=59[facility] CenterComment on above:Performed By: #### [id number] #### [facility] [address], [place] [address]Qebovb Medicine Office/Clinic Noteon 05-22-9682Izibiv Medicine Office/Clinic NoteFami Medicine Office/Clinic Note HPI Staff complaints of [...] office today. We will order metabolic panel, ECG,and holter for further evaluation. Pt aware of [...] medical support in addressing this problem. Your BMIand weight management will be followed at subsequent visits. 3. Obesity (E66.9: Obesity, unspecified) Encourage healthy diet and lifestyle choices. Follow-up With When Contact Information PRAVEEN RESENDEZ FAAFP, Penelope Tony, CHRIS, PED [address] [facility], [place] [address]- Additional Instructions: Patient Education Bradycardia, Adult Problem [...] exam Historical Abdominal pain (more content not included)...[facility] Comment on above:Result Comment: Electronically Signed By: Inez Banegas\.br\Date and Time Signed: 07/08/24 08:54 EDTAmbulatory Visit Summaryon 54-86-2197Dxvhpdookw Visit SummaryAmbulatory Visit Summary SANNA RENDON :1985 Visit Date:07/07/2024 Ambulatory Visit Instructions Your Care Team Attending Physician - Inez Banegas Primary Care Physician - Penelope CASAS DO, FAAFP This Is Your Medications List Contact prescribing physician if questions or concerns enoxaparin (Lovenox 40 mg/0.4 mL Injection) ergocalciferol (Vitamin D) famotidine (Pepcid 40 mg Tab) fluconazole (Diflucan 150 mg Tab) fluticasone nasal (Flonase 0.05 mg/inh Weldon) levothyroxine (levothyroxine 25 mcg (0.025 mg) Tab) [...] EDT With: Penelope CASAS DO, FAAFP Where: [facility] [address] [facility], [facility] [place] [address]- You Need to Schedule the Following Appointments Follow Up with Penelope CASAS DO, FAAFP, CHRIS, PED When: Where: [address], [facility] [place] [address]- Medications What How Much When [...] By Mouth Every 7 days Yeast infection Contactprescribing physician if questions or concerns Unchanged fluticasone nasal (Flonase 0.05 mg/ inh Weldon) 2 Sprays Nasal Inhalation Every day each [...] you for choosing us for your care. [facility] Quanton 61-51-5203TOO.beta subunit Qn1 m[IU]/mLNormal1-3[facility] CampusComment on above:Result Comment: 'F NON < 1 - 3' ' 0.2 - 1 WEEK = 5 TO 50' ' 1 - 2 WEEKS = 50 - 500' ' 2 - 3 WEEKS = 100 - 5000' ' 3 - 4 WEEKS = 500 - 07696' ' 4 - 5 WEEKS = 1000 - 68902' ' 5 - 6 WEEKS = 57843 - 961187' ' 6 - 8 WEEKS = 12217 - 315621' ' 8 - 12 WEEKS = 83658 - 688910'Performed By: #### [id number] #### [facility] [address] [place], [place] [address]WNUNM 2 Mutationson 28-66-5864RSQXT InterpretationSee Note AdventHealth AvistaComment on above:Result Comment: Indication for testing: Determine genetic contribution to hyperhomocysteinemia. 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 The [employer] Practice Guidelines indicate [...] a contributing factor to hyperhomocysteinemia. Variants Tested: c.665C>T(p.Uqh547Tek) and c.1286A>C(p.Kry854Yxx). (legacy names C677T and R8616I, respectively). Clinical Sensitivity: Undefined; hyperhomocysteinemia is caused [...] developed and its performance characteristics determined by [facility]. It has not been cleared or approved by the US Food and Drug Administration. This test was performed in a CLIA certified laboratory and is intended for clinical purposes. Counseling and informed consent are recommended for genetic testing. Consent forms are available online. Performed By: [facility] [address] [place] [address] Shoe Worker: Yayo Moncada MD, PhD CLIA Number: [id number] Mutation: [id number]ventHealth AvistaMTHFR Mutation: C642UZutrgytcVehdpjZxcpxAdventHealth Avista MTHFR PCR SpecimenWhole BloodAdventHealth AvistaAnti-nuclear Ab (NASEEM) Reflexon 49-77-8152Jjwi-Nuclear Ab (NASEEM), IgG by ELISANot detectedNormal None DetWest Springs HospitalComment on above:Result Comment: If suspicion of connective tissue disease is strong and NASEEM EIA is negative, consider testing for NASEEM by IFA ([id number]). No antibodies to Anti-Nuclear Antibodies (NASEEM) detected. The Extractable Nuclear Antigen Antibodies (INSURANCE UNDERWRITER, Christianson, SSA 52, SSA 60, Scleroderma, Brianna-1 [...] HEp-2 substrate with an IgG-specific conjugate. The NSAEEM ALEX screen is designed to detect antibodies against dsDNA, histones, SS-A (Ro), SS-B (La), Christianson, Christianson/INSURANCE UNDERWRITER, Scl-70, Brianna-1, centromeric proteins, other antigens extracted from the HEp-2 cell nucleus. NASEEM ALEX assays have been reported to have lower sensitivities than NASEEM IFA for systemic autoimmune rheumatic diseases (SARD). Negative results do not necessarily rule out SARD. Performed By: [facility] [address] [place] [address] Shoe Worker: Yayo Moncada MD, PhD CLIA Number: [id number]-[id number] (Histidyl-tRNA Synthetase) Ab, IgGon 37-16-8681Ys-1 (Histidyl-tRNA Synthetase) Ab, IgG0 AU/mLNormal0-40[facility] Comment on above:Result Comment: INTERPRETIVE INFORMATION: Brianna-1 Antibody, IgG 29 AU/mL or less.........Negative 30-40 AU/mL..............Equivocal 41 AU/mL or greater......Positive Presence of Brianna-1 (antihistidyl transfer RNA [t-RNA] synthetase) antibody is associated with polymyositis and may also be seen in patients with dermatomyositis. Brianna-1 antibody is associated with pulmonary involvement (interstitial lung disease), Raynaud phenomenon, arthritis, and fishing gear mechanic's hands (implicated in antisynthetase syndrome). Performed By: [facility] [address] [place] [address] Shoe Worker: Yayo Moncada MD, PhD CLIA Number: [id number] and SSB Abs, IgGon 10-67-1519CAI 52 (Ro) (KELLEN) Ab, IgG1 AU/mLNormal0-40[facility] HospitalComment on above:Result Comment: INTERPRETIVE INFORMATION: SSA-52 (Ro52) (KELLEN) Antibody, IgG 29 [...] often in the presence of interstitial lung disease.SSB (La) (KELLEN) Ab, IgG0 AU/mLNormal0-40[facility] Comment on above:Result Comment: INTERPRETIVE INFORMATION: SSB (La) (KELLEN) Ab, IgG 29 [...] (PSS) also have this antibody. Performed By: [facility] [address] [place] [address] Shoe Worker: Yayo Moncada MD, PhD CLIA Number: [id number] Antibodies, IgG/IgMon 02-99-1154Tagakampixv Ab IgG95 GPLCritically high<=14[facility] HospitalComment on above: Result Comment: INTERPRETIVE INFORMATION: Anti-Cardiolipin IgG Ab <=14 GPL: Negative [...] other criteria phospholipid antibody tests. Performed by [facility], [address] [facility],[place] [id number] www.[employer], Zhang Bledsoe MD, Lab. Director CLIA Number: [id number] Ab IgM<10Normal<=12[facility] HospitalComment on above:Result Comment: INTERPRETIVE INFORMATION: Anti- Cardiolipin IgM <=12 MPL: Negative 13-19 MPL: Indeterminate [...] other criteria phospholipid antibody tests. Performed by [facility], [address] [facility] [place] [address] www.[employer], Zhang Bledsoe MD, Lab. Director CLIA Number: [id number]-Lyfnf (Smooth Muscle) Antibody, IgAon 16-23-1768Z-Actin Ab, IgA1.8 UnitsNormal0.0-24.9[facility] HospitalComment on above: Result Comment: INTERPRETIVE INFORMATION: F-Actin (Smooth Muscle)Antibody, IgA 20.0 Units or less.....Negative 20.1 - 24.9 Units......Equivocal 25.0 Units or greater..Positive The presence of IgA antibodies against F-Actin in patients having positive serologic markers for celiac disease, such as antiendomysial, anti-transglutaminase, and/or anti-gliadin peptide IgA, indicates the presence of intestinal villus atrophy. Positive results should be confirmed with biopsy. Performed By: [facility] [address] [place] [address] Shoe Worker: Yayo Moncada MD, PhD CLIA Number: [id number] Ab, IgG by ELISAon 40-21-3239gfYXQ Ab, IgG by ALEX 4 IUNormal0-24[facility] HospitalComment on above:Result Comment: INTERPRETIVE INFORMATION: Double-Stranded DNA (dsDNA) Ab IgG ALEX 24 IU or less........Negative 25-30 IU.............Borderline Positive 30-60 IU.............Low Positive 60-200 IU............Positive 201 IU or greater....Strong Positive Positivity for anti-double stranded DNA (anti-dsDNA) IgG antibody is a diagnostic criterion of systemic lupus erythematosus (SLE). Specimens are initially screened by enzyme-linked immunosorbent assay (LAEX). If ordered as reflex ([id number]), positive ALEX results (>24 IU) will be [...] recommendations for testing may be found at [email or web address]. Performed by [facility], [address] [place] [address] www.[employer], Zhang Bledsoe MD, Lab. Director CLIA Number: [id number]-Uyelqnyg Proteinon 05-50-6997NTR [Mass/Vol]mg/LNormal 0.0-5.0[facility] HospitalComment on above:Performed By: #### CRP #### [facility] [address] [facility] [place] [address] Llozqzfxwbklv Rateon 73-23-3539Ishlipdioerak Rate18 mmNormal0-20 [facility] HospitalComment on above:Result Comment: ESR Units mm/Hr Performed By: #### ESR #### [facility] [address] [place] [address] Vsmdqf Medicine Office/Clinic Noteon 63-45-9622Aaxaqk Medicine Office/Clinic NoteFacharles river hospital Medicine Office/Clinic Note Chief Complaint C/O: Rt Facial numbness 1 wk ago. Vertigo, lost control of rt leg, weakness- daughter hit her mouth 2 days ago and the sensation returned. Mouth xray at dental office. Denies vision change, chest pain, sob, palalpatations. HPI Staff Lab 06/12/24 C/O: Rt Facial numbness 1 wk ago. Vertigo, lost control of rt leg, weakness- daughter hit her mouth 2 days ago and the sensation returned. Mouth xray at dental office. Denies vision change, chest pain, sob, palpatations History of Present Illness C/O: Rt Facial numbness 1 wk ago. Vertigo, lost control of rt leg, weakness- daughter hit her mouth 2 days ago and [...] back to normal: She desries no ED visitnor MRI's etc. 2. BMI 34.0-34.9,adult (Z68.34: Body mass index [BMI] 34.0-34.9, adult) The standard range for ages 18 and older is >=18.5 and < 25 kg/m2. Your BMI today was above this range, this falls in the overweight to obese category and there are medical benefits to weight loss. We can offer counselling, referral, and/or medical support in addressing this problem. Your BMIand weight management will be followed at subsequent [...] bedtime), # 90 tab(s), Refills(s) 4, Pharmacy: [facility] 1985, 168, cm, 06/30/24 8:36:00 EST, Height/Length Dosing, 97.2, kg, 06/30/24 8:36:00 EST, Weight Dosing Total time spent preparing the chart, conducting of the encounter with the patient and family and time spent documenting, reviewing, and ordering tests was 25 minutes. Follow-up With When Contact Information Penelope CASAS DO, FAAFP, CHRIS, PED In 2 months [address] [facility], [facility] [place] [address]- ([phone] (more content not included)...[facility] Comment on above:Result Comment: Electronically Signed By: Penelope CASAS DO, FAAFP\.br\Date and Time Signed: 06/30/24 09:24 ESTRECURRENT VAGINITIS (HTRX)on 12-25-2461WQUNPQWDH YWVQVNE2ODKD HealthcareATOPOBIUM VAGINAENot detectedNOMS HealthcareBVAB 2,3 (BACTERIAL VAGINOSIS ASSOCIATED BACTERIA 2, 3); MOBILUNCUS PDC0BKVZ HealthcareBVAB 2,3 (BACTERIAL VAGINOSIS ASSOCIATED BACTERIA 2, 3); MOBILUNCUS SPPNot detectedNOMS HealthcareCANDIDA ALBICANS, PARAPSILOSIS, [id number] HealthcareCANDIDA ALBICANS, PARAPSILOSIS, TROPICALISNot detected NOMS HealthcareCANDIDA [id number] HealthcareCANDIDA GLABRATANot detectedNOMS HealthcareCANDIDA [id number] HealthcareCANDIDA KRUSEINot detectedNOMS HealthcareCHLAMYDIA [id number] HealthcareCHLAMYDIA TRACHOMATISNot detected NOMS HealthcareGARDNERELLA [id number] HealthcareGARDNERELLA VAGINALISNot detectedNOMS HealthcareMEGASPHAERA (TYPES 1, 2)0NOMS HealthcareMEGASPHAERA (TYPES 1, 2)Not detectedNOMS HealthcareMYCOPLASMA [id number] Healthcare MYCOPLASMA GENITALIUMNot detectedNOMS HealthcareNEISSERIA [id number] HealthcareNEISSERIA GONORRHOEAENot detectedNOMS HealthcareTRICHOMONAS VAGINALIS0 NOMS HealthcareTRICHOMONAS VAGINALISNot detectedNOMS HealthcareNOMS Healthcare Urinalysis macro (dipstick) panel (U)on 32-33-7519Xcyzzvroe, UANegativeNegative - 4(70) +++ mg/dLNOMS HealthcareBlood, UANegativeNegative - 50 Max/mcLNOMS HealthcareClarity, UAClearNOMS HealthcareColor, UAYellowNOMS HealthcareGlucose, UANegativeNegative - 2000(110) ++++ mg/dLNOMS HealthcareInterpretation and review of laboratory resultsNormalNOMS HealthcareKetones, UANegativeNegative - 160(16) ++++ mg/dLNOMS HealthcareLeukocytes, UANegativeNegative - 500+++ John/mcL NOMS HealthcareNitrite, UANegativeNegative - PositiveNOMS HealthcarepH, UA75 - 9 NOMS HealthcareProtein, UANegativeNegative - 2000(20) ++++ mg/dLNOMS Healthcare Spec Grav, UA1.011 - 1.03NOMS HealthcareUrobilinogen, UA0.20.2 - 12 mg/dLNOMS HealthcareNOMS HealthcareAmbulatory Visit Summaryon 91-60-7587Wacppimxrc Visit SummaryAmbulatory Visit Summary SANNA RENDON :1985 Visit Date:06/19/2024 [...] (Vitamin D) fluticasone nasal (Flonase 0.05 mg/inh Weldon) levothyroxine (levothyroxine 25 mcg (0.025 mg) Tab) [...] EDT With: Penelope CASAS DO, FAAFP Where: [facility] [address] [facility], [place] [address]- Medications What How Much When Why Instructions New azithromycin (Zithromax 250 mg Tab) 1 Packets By Mouth As Directed Sinusitis Duration: 5 Days Refills: 1 as directed on package labeling Pickup at [facility] 1985 New fluconazole (Diflucan 150 mg Tab) 1 Tablets By Mouth Every 7 days Yeast infection Refills: 1 Pickup at [facility] 1985 Unchanged enoxaparin (Lovenox 40 mg/ 0.4 mL Injection) 40 Milligram Subcutaneous Every 24 hours Contact prescribing physician if questions or concerns Unchanged ergocalciferol (Vitamin D) 2,000 International unit By Mouth Every week Contact prescribing physician if questions or concerns Unchanged fluticasone nasal (Flonase 0.05 mg/ inh Weldon) 2 Sprays Nasal Inhalation Every day each [...] physician if questions or concerns Pharmacy Information [facility] 1985: [address], [place] [id number] [phone] Allergies Milk Products (Illness) ciprofloxacin (Numbness and [...] you for choosing us for your care. [facility] Medicine Office/Clinic Noteon 11-86-0002Kanlmw Medicine Office/Clinic NoteFacharles river hospital Medicine Office/Clinic Note Chief Complaint Sinus pressure [...] day(s), # 6 tab(s), Refills(s) 1, [facility], 168, cm, 06/09/24 14:03:00 EST, Height/Length Dosing, 98.4, kg, 06/19/24 16:19:00 EST, Weight Dosing Yeast infection (B37.9: Candidiasis, unspecified) Ordered: fluconazole, 150 mg = 1 tab(s), Oral, q7day, # 4 tab(s), Refills(s) 1, Pharmacy: [facility] 1985, 168, cm, 06/09/24 14:03:00 [...] Oral, q7day, 1 refills Flonase 0.05 mg/inh Weldon, 2 spray(s), Nasal, Daily, 11 refills levothyroxine [...] Given Patient Refuses influe (more content not included)...NormalKettering Health – Soin Medical CenterComment on above:Result Comment: Electronically Signed By: MANDI BRYANT\.cedrick\Date and Time Signed: 06/19/24 16:37 ESTCBC w/ Auto Diffon 06-12-2024 Basophils/100 WBC (Bld)0.3 %Normal0.0-2.0[facility] Soin Medical CenterComment on above:Performed By: #### [id number] #### [facility] [address], [place] [address]Kiwuxlojl/Leukocytes Auto (Bld) [Pure # fraction]0.0 E9/LNormal 0.0-0.2FWVUMedicine Harrison Community HospitalComment on above:Performed By: #### [id number] #### [facility] [address], [place] [address]Iqfzdmutoou (Bld) [#/Vol]0.0 E9/LNormal0.0-0.5FWVUMedicine Harrison Community HospitalComment on above:Performed By: #### [id number] #### [facility] [address], [place] [address]Cpyhkltwfvn/100 WBC (Bld)0.3 %Normal0.0-8.0[facility] So[facility] Medical CenterComment on above:Performed By: #### [id number] #### [facility] [address], [place] [address]Usqlsjujvlz distribution width (RBC) [Ratio]14.0 %Normal 10.9-14.2FWVUMedicine Harrison Community HospitalComment on above:Performed By: #### [id number] #### [facility] [address], [place] [address]Sincjsolxc (Bld) [Volume fraction]40.9 %Znmbqb01.0-46.0[facility] So[facility] Medical CenterComment on above:Performed By: #### [id number] #### [facility] [address], [place] [address]Dkeklfgcmr (Bld) [Mass/Vol]13.9 g/lJRbrarl76.0-16.0[facility] Medical CenterComment on above:Performed By: #### [id number] #### [facility] [address] [place] [address]Znonppunlfb (Bld) [#/Vol]2.8 E9/LNormal1.0-4.0[facility] So[facility] Medical CenterComment on above:Performed By: #### [id number] #### [facility] [address] [place] [address]Qymjyjbrmbc/100 WBC (Bld)24.6 %Bpfzta89.0-50.0[facility] So[facility] Medical CenterComment on above:Performed By: #### [id number] #### [facility] [address] [place] [address]EIN (RBC) [Entitic mass]30.7 syMwmrnc59.0-34.0[facility] Medical CenterComment on above:Performed By: #### [id number] #### [facility] [address] [place] [address]NYSB (RBC) [Mass/Vol]33.9 g/qURivcfu01.4-36.0[facility] So[facility] Medical CenterComment on above:Performed By: #### [id number] #### [facility] [address] [place] [address]SUA (RBC) [Entitic vol]90.6 zJIgzesm16.0-100.0[facility] Medical CenterComment on above:Performed By: #### [id number] #### [facility] [address] [place] [address]Xyzardvsp (Bld) [#/Vol]0.6 E9/LNormal0.2-1.0[facility] So[facility] Medical CenterComment on above:Performed By: #### [id number] #### [facility] [address] [place] [address]Swbgajxzloj (Bld) [#/Vol]8.0 E9/LHigh2.0-7.5FWVUMedicine Harrison Community HospitalComment on above:Performed By: #### [id number] #### [facility] [address], [place] [address]Jtpdkcvzcmr/100 WBC (Bld)69.6 %Zqhusm15.0-75.0[facility] Medical CenterComment on above:Performed By: #### [id number] #### [facility] [address] [place] [address]Mhpkgwgn562.0 E9/DNiaxtq042.0-500.0[facility] Comment on above:Performed By: #### [id number] #### [facility] [address] [place] [address]Nrwweymq mean volume (Bld) [Entitic vol]8.2 fLNormal6.4-10.8 [facility] Medical CenterComment on above:Performed By: #### [id number] #### [facility] [address] [place] [address]MFS (Bld) [#/Vol]4.5 E12/LNormal4.3-5.9[facility] So[facility] Medical CenterComment on above:Performed By: #### [id number] #### [facility] [address] [place] [address]PRK corrected for nucl RBC Auto (Bld) [#/Vol]11.5 E9/LHigh 4.0-11.0[facility] So[facility] Medical CenterComment on above:Performed By: #### [id number] #### [facility] [address] [place] [address]ZKIGQGYGNOTgqtloi By: SYSTEM SYSTEM on 14-64-5281Xjamncxzl/100 WBC (Bld)0.3 %Normal0.0 - 2.0 %Remisol HemeBasophils/Leukocytes Auto (Bld) [Pure # fraction]0.0 E9/LNormal0.0 - 0.2 E9/LRemisol HemeEosinophils (Bld) [#/Vol]0.0 E9/LNormal0.0 - 0.5 E9/LRemisol HemeEosinophils/100 WBC (Bld)0.3 %Normal0.0 - 8.0 %Remisol HemeErythrocyte distribution width (RBC) [Ratio]14.0 %Qeqrcw71.9 - 14.2 %Remisol HemeHematocrit (Bld) [Volume fraction]40.9 %Sdkvtu02.0 - 46.0 % Remisol HemeHemoglobin (Bld) [Mass/Vol]13.9 g/eDYrxfwv00.0 - 16.0 gm/dLRemisol HemeLymphocytes (Bld) [#/Vol]2.8 E9/LNormal1.0 - 4.0 E9/LRemisol Heme Lymphocytes/100 WBC (Bld)24.6 %Sdikmt77.0 - 50.0 %Remisol HemeMCH (RBC) [Entitic mass]30.7 yqUwbnpn60.0 - 34.0 pgRemisol HemeMCHC (RBC) [Mass/Vol]33.9 g/dL Icgiop97.4 - 36.0 gm/dLRemisol HemeMCV (RBC) [Entitic vol]90.6 bMJywzhw10.0 - 100.0 fLRemisol HemeMonocytes (Bld) [#/Vol]0.6 E9/LNormal0.2 - 1.0 E9/LRemisol HemeMonocytes/100 WBC (Bld)5.2 %Normal4.0 - 14.0 %Remisol HemeNeutrophils (Bld) [#/Vol]8.0 E9/LHigh2.0 - 7.5 E9/LRemisol HemeNeutrophils/100 WBC (Bld)69.6 % Ylveis79.0 - 75.0 %Remisol QbzwUocgqscy544.0 E9/LGbeiin096.0 - 500.0 E9/LRemisol HemePlatelet mean volume (Bld) [Entitic vol]8.2 fLNormal6.4 - 10.8 fLRemisol HemeRBC (Bld) [#/Vol]4.5 E12/LNormal4.3 - 5.9 E12/LRemisol HemeWBC corrected for nucl RBC Auto (Bld) [#/Vol]11.5 E9/LHigh4.0 - 11.0 E9/LRemisol HemeAmbulatory Visit Summaryon 21-62-6303Tpguiuidsz Visit SummaryAmbulatory Visit Summary SANNA RENDON :1985 Visit Date:06/09/2024 Ambulatory Visit Instructions Your Diagnosis Antiphospholipid antibody with hypercoagulable state H/O: CVA Gestational diabetes BMI 35.0-35.9,adult Morbid obesity Your Care Team Attending Physician - Penelope CASAS DO, FAAFP Primary Care Physician - Penelope CASAS DO, FAAFP This Is Your Medications List fluticasone nasal (Flonase 0.05 mg/inh Weldon) Contact prescribing physician if questions or concerns [...] EDT With: Penelope CASAS DO, FAAFP Where: [facility] [address] [place] [address], [place] [address]- Medications What How Much When Instructions New fluticasone nasal (Flonase 0.05 mg/ inh Weldon) 2 Sprays Nasal Inhalation Every day Refills: 11 each nostril Pickup at [facility]/pharmacy #[id number] Unchanged enoxaparin (Lovenox 40 mg/ 0.4 mL [...] physician if questions or concerns Pharmacy Information [facility]/pharmacy #[id number]: [address] [place], [place] [id number] [phone] Allergies Milk Products (Illness) ciprofloxacin (Numbness and [...] you for choosing us for your care. NormalFisher [facility] Mid[facility] CampusBhG Quanton 70-91-0556WRO.beta subunit Qn2 m[IU]/mLNormal1-3[facility] Mid[facility] CampusComment on above:Result Comment: 'F NON < 1 - 3' ' 0.2 - 1 WEEK = 5 TO 50' ' 1 - 2 WEEKS = 50 - 500' ' 2 - 3 WEEKS = 100 - 5000' ' 3 - 4 WEEKS = 500 - 23888' ' 4 - 5 WEEKS = 1000 - 91822' ' 5 - 6 WEEKS = [address] - 437654' ' 6 - 8 WEEKS = 42783 - 812155' ' 8 - 12 WEEKS = 65[address] - 151834'Performed By: #### [id number] #### [facility] [address] [place], [place] [address]OEKJTJXYLQtomani By: SYSTEM SYSTEM on 95-39-8588IID Qn1.97 m[IU]/LNormal0.34 - 5.60 mcIU/mLRemisol ChemFacharles river hospital Medicine Office/Clinic Noteon 33-77-7751Zshtgs Medicine Office/Clinic NoteFami Medicine Office/Clinic Note Chief Complaint Concerns: Jaw Pain-x1wk Vision light sensitive-blurry, facial numbness. Dentist- TMJ, reflux. Rt neck/jaw/ear pain(drainage). Denies FISHER. no [...] from inside ear, not outside Moved from [place] Review of Systems PHQ Score Initial Depression [...] antibody with hypercoagulable state (D68.61: Antiphospholipid syndrome) [facility] Department of hematology/oncology following and treating with Lovenox, please see their consultation 05/28/2024. Treats with Lovenox 40 mg subcu every 24 hours 2. H/O: CVA (Z86.79: Personal history of other diseases of the circulatory system) Please see #1. 3. 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 Metformin XR 500 mg tabs [...] medical support in addressing this problem. Your BMIand weight management will be followed at subsequent visits. 7. Morbid obesity (E66.01: Morbid (severe) obesity due to excess calories) Diet and exercise a BMI goal of 25 Orders: fluticasone nasal, 2 spray(s), Nasal, Daily, 16 gram, Refill(s) 11, each nostril, [facility]/pharmacy #[id number], 168, cm, 06/09/24 14:03:00 EST, Height/Length [...] FAAFP, FAM, PED In [address], [place] [address]- [phone] (more content not included)...NormalKettering Health – Soin Medical CenterComment on above:Result Comment: Electronically Signed By: Penelpoe CASAS DO, FAAFP\.br\Date and Time Signed: 06/09/24 14:24 ESTTSHon 89-62-7340RXS Qn1.97 m[IU]/LNormal0.34-5.60K[facility] Soin Medical CenterComment on above:Performed By: #### [id number] #### Bra[facility]io [facility] [address] [place], [place] [address]WcKT Quanton [id number].beta subunit Qn6 m[IU]/mLHigh1-3 [facility] Soin Medical CenterComment on above:Result Comment: 'F NON < 1 - 3' ' 0.2 - 1 WEEK = 5 TO 50' ' 1 - 2 WEEKS = 50 - 500' ' 2 - 3 WEEKS = 100 - 5000' ' 3 - 4 WEEKS = 500 - 35096' ' 4 - 5 WEEKS = 1000 - 27343' ' 5 - 6 WEEKS = 87160 - 812924' ' 6 - 8 WEEKS = 00130 - 667718' ' 8 - 12 WEEKS = 09969 - 922080'Performed By: #### [id number] #### [facility] [address] [place], [place] [address]([place])D3 [facility] Hospitalon 66-58-802240384765-facdqjgguktqqw D3 [Mass/Vol] 27.8 ng/mLLow31.0-80.0[facility] HospitalCommclaren bay [facility] on above:Order Comment: Specimen Type: BLOOD SPECIMENOrdering Facility: [facility] Address:[address] [place], [place] [address]Result Comment: Classification of 25 [place] Vitamin D status: Deficiency/Insufficiency: < or = 30 ng/ml. Sufficiency/Optimal Levels: 31-80 ng/mL Toxicity: > 100 ng/mL. Test performed by chemiluminescent immunoassay.Performed By: #### 1989-3 ####[facility] LABCLIA [id number] [facility] P[address]STMFTHOM[address] 6609395 [facility] W Auto Differential panel (Bld)on 66-13-3343Bwrwftmxo (Bld) [#/Vol]0.03 10*3/uLNormal<0.11CKettering Health [facility]al [facility] Center on above:Order Comment: Specimen Type: BLOOD SPECIMENOrdering Facility: [facility] Address:[address] [place], [place] [address]Performed By: #### 35204-5 ####[facility] LABCLIA [id number] [place], [place] [address]Yamenhzjn/100 WBC (Bld)0.4 % NormalSt. Francis Hospital on above:Order Comment: Specimen Type: BLOOD SPECIMENOrdering Facility: [facility] Address:[address] [place], [place] [address]Performed By: #### 25033-4 ####[facility] LABIA [id number] [place] [address] Differential cell count method Nom (Bld)AutoNormalClevelWakeMed Cary Hospital Comment on above:Order Comment: Specimen Type: BLOOD SPECIMENOrdering Facility: [facility] Address:[address] [place] [address] Performed By: #### 30012-2 ####[facility] LABIA [id number] [place], [place] [address]Skdlssgrtfk (Bld) [#/Vol]0.08 10*3/uLNormal<0.46[facility] on above:Order Comment: Specimen Type: BLOOD SPECIMENOrdering Facility: [facility] Address:[address] [place], [place] [address]Performed By: #### 20171-3 ####[facility] LABIA [id number] [place], [place] [address]Nixmofaaaux/100 WBC (Bld)0.9 %NormalSt. Francis Hospital on above:Order Comment: Specimen Type: BLOOD SPECIMENOrdering Facility: [facility] Address:[address] [place], [place] [address]Performed By: #### 50268-8 ####[facility] LABIA [id number] [place], [place] [address]Xyferfredig distribution width (RBC) [Ratio]13.8 %Bzftff92.5-15.0[facility] on above: Order Comment: Specimen Type: BLOOD SPECIMENOrdering Facility: [facility] Address:[address] [place], [place] [address]Performed By: #### 24205- 8 ####[facility] LABCLIA [id number] [place], [place] [address]Tnlginlkid (Bld) [Volume fraction]34.0 %Low36.0-46.0 [facility] on above:Order Comment: Specimen Type: BLOOD SPECIMENOrdering Facility: [facility] Address:[address] [place], [place] [address]Performed By: #### 35164-1 ####[facility] LABIA [id number] [place], [place] [address]Zajfbqrpam (Bld) [Mass/Vol]11.5 g/yHPvehyg13.5-15.5CKettering Health Behavioral Medical Center on above: Order Comment: Specimen Type: BLOOD SPECIMENOrdering Facility: [facility] Address:[address] [place], [place] [address]Performed By: #### 23029- 8 ####[facility] LABIA [id number] [place], [place] [address]Scmkvkrt granulocytes (Bld) [#/Vol]0.03 10*3/uLNormal <0.10[facility] on above:Order Comment: Specimen Type: BLOOD SPECIMENOrdering Facility: [facility] Address:[address] [place], [place] [address]Performed By: #### 19198-6 ####[facility]ENT[facility] LABIA [id number] [place], [place] [address]Btvsophe granulocytes/100 WBC (Bld)0.4 %NormalSt. Francis Hospital on above: Order Comment: Specimen Type: BLOOD SPECIMENOrdering Facility: [facility] Address:[address] [place], [place] [address]Performed By: #### 64765- 8 ####[facility] LABIA [id number] [place], [place] [address]Zmyldsikiny (Bld) [#/Vol]2.86 10*3/uLNormal1.00-4.00 [facility] ClevelandComment on above:Order Comment: Specimen Type: BLOOD SPECIMENOrdering Facility: [facility] Address:[address] [place], [place] [address]Performed By: #### 86182-6 ####[facility] LABCLIA [id number] [place], [place] [address]Bqwpffsdmue/100 WBC (Bld)33.4 %NormalSt. Francis Hospital on above:Order Comment: Specimen Type: BLOOD SPECIMENOrdering Facility: [facility] Address:[address] [place], [place] [address]Performed By: #### 21304-5 ####[facility] LABCLIA [id number] [place], [place] [address]OWS (RBC) [Entitic mass]30.8 fxEvbrrp74.0-34.0[facility] on above:Order Comment: Specimen Type: BLOOD SPECIMENOrdering Facility: [facility] Address:[address] [place], [place] [address]Performed By: #### 19523-8 ####[facility] LABCLIA [id number] [place], [place] [address]TGQP (RBC) [Mass/Vol]33.8 g/fYHboyce32.5-36.0[facility] on above: Order Comment: Specimen Type: BLOOD SPECIMENOrdering Facility: [facility] Address:[address] [place], [place] [address]Performed By: #### 28594- 8 ####[facility] LABCLIA [id number] [place], [place] [address]KTB (RBC) [Entitic vol]91.2 wHNhxgwt46.0-100.0[facility] on above:Order Comment: Specimen Type: BLOOD SPECIMENOrdering Facility: [facility] Address:[address] [place], [place] [address]Performed By: #### 13227-6 ####[facility] LABCLIA [id number] [place], [place] [address]Jkrnderev (Bld) [#/Vol]0.66 10*3/uLNormal<0.87[facility] on above:Order Comment: Specimen Type: BLOOD SPECIMENOrdering Facility: [facility] Address:[address] [place], [place] [address]Performed By: #### 03697- 8 ####[facility] LABIA [id number] [place], [place] [address]Nkzvbhlmx/100 WBC (Bld)7.7 %NormalSt. Francis Hospital on above:Order Comment: Specimen Type: BLOOD SPECIMENOrdering Facility: [facility] Address:[address] [place], [place] [address]Performed By: #### 35510-3 ####[facility] [id number] [place], [place] [address]Fextusiaxze (Bld) [#/Vol]4.90 10*3/uLNormal1.45-7.50[facility] on above:Order Comment: Specimen Type: BLOOD SPECIMENOrdering Facility: [facility] Address:[address] [place], [place] [address]Performed By: #### 80378-9 ####[facility] LABIA [id number] [place], [place] [address]Xpboacovwjy/100 WBC (Bld)57.2 %NormalSt. Francis Hospital on above:Order Comment: Specimen Type: BLOOD SPECIMENOrdering Facility: [facility] Address:[address] [place], [place] [address]Performed By: #### 76626-9 ####[facility] [id number] [place], [place] [address]Eryoetkid RBC (Bld) [#/Vol] 10*3/uLNormal<0.01[facility] on above:Order Comment: Specimen Type: BLOOD SPECIMENOrdering Facility: [facility] Address:[address] [place], [place] [address]Performed By: #### 99911-8 ####[facility] LABCLIA [id number] [place], [place] [address]Vdmtyoiqn RBC/100 WBC (Bld) [Ratio]0.0 /[address] [facility] on above:Order Comment: Specimen Type: BLOOD SPECIMENOrdering Facility: [facility] Address:[address] [place], [place] [address]Performed By: #### 49964-8 ####[facility] LABCLIA [id number] [place], [place] [address]Bujkogkl mean volume (Bld) [Entitic vol]9.6 fLNormal9.0-12.7CKettering Health Behavioral Medical Center on above:Order Comment: Specimen Type: BLOOD SPECIMENOrdering Facility: [facility] Address:[address] [place] [address] Performed By: #### 35036-0 ####[facility] LABCLIA [id number] [place], [place] [address]Hrjloyhcb (Bld) [#/Vol]345 10*3/mGQuqamf953-102ShotzgvqfSt. Francis Hospital on above:Order Comment: Specimen Type: BLOOD SPECIMENOrdering Facility: [facility] Address:[address] [place], [place] [address]Performed By: #### 11526-2 ####[facility] LABCLIA [id number] [place], [place] [address]JUK (Bld) [#/Vol]3.73 10*6/uLLow3.90-5.20[facility] on above:Order Comment: Specimen Type: BLOOD SPECIMENOrdering Facility: [facility] Address:[address] [place], [place] [address]Performed By: #### 91391-4 ####[facility] LABCLIA [id number] [place], [place] [address]LRH (Bld) [#/Vol]8.56 10*3/uL Normal3.70-11.00[facility] on above:Order Comment: Specimen Type: BLOOD SPECIMENOrdering Facility: [facility] Address:[address] [place], [place] [address]Fxqxigxbg By: #### 96118-8 ####[facility] LABCLIA [id number] [place], [place] [address]NVHPHLic 68-28-9346RLYPAXFznqa (SP) Office (HEMASA) SANNA RENDON ([id number]) 1985 F Date Time Provider Department 05/28/24 1:00 PM KRISTOFER CALIX During your visit today, we recorded the following information about you: Temperature Pulse Respiration Blood pressure 97.6 degrees 72/minute 16/minute 123/83 Weight Height 98.5 kg 1.677 m Kristofer Calix MD 05/29/2024 9:13 AM Signed NAME: Carola Rendonie CLINIC NO.: [id number] DATE OF SERVICE: May 28, 2024 (Levon) [...] later in 2018. These were found in [place], [place]. I don't have access to these [...] target-like rash shortly before presenting to [facility] in 2016 with headaches and was [...] soon. When she had a stroke in [place], she had symptoms up to a month [...] having trouble losing weight. (more content not included)...NormalGuernsey Memorial HospitalCNPNon 05-28-2024 CNPNTelephone (NCCAP) JUSTICE,KATIE ([id number]) 1985 F Date Time Provider Department 05/28/24 [...] 05/28/2024 Encounter Status:Closed by TAYLOR ESCUDERO on 05/28/24NormalCProvidence Hospitalprehensive metabolic 2000 panelon 41-11-1059Mynfvem [Mass/Vol]4.4 g/dLNormal3.9-4.9CKettering [facility] on above:Order Comment: Specimen Type: BLOOD SPECIMENOrdering Facility: [facility] Address:[address] [place], [place] [address]Performed By: #### 37427-8 ####[facility] LABCLIA [id number] [place], [place] [address]CQN [Catalytic activity/Vol]59 U/QJpzmka09-130QijcgaisjSt. Francis Hospital on above:Order Comment: Specimen Type: BLOOD SPECIMENOrdering Facility: [facility] Address:[address] [place], [place] [address]Performed By: #### 71928-8 ####[facility] LABCLIA [id number] [place], [place] [address]FWH [Catalytic activity/Vol]12 U/LNormal7-38[facility] on above:Order Comment: Specimen Type: BLOOD SPECIMENOrdering Facility: [facility] Address:[address] [place], [place] [address]Performed By: #### 88944- 8 ####[facility] LABCLIA [id number] [facility] [place], [place] [address]Zwhvn gap [Moles/Vol]10 mmol/LNormal8-15[facility] on above:Order Comment: Specimen Type: BLOOD SPECIMENOrdering Facility: [facility] Address:[address] [place], [place] [address]Performed By: #### 99385-1 ####[facility] LABCLIA [id number] [place], [place] [address]DRW [Catalytic activity/Vol]11 U/VOsv41-58MnolojpyfSt. Francis Hospital on above:Order Comment: Specimen Type: BLOOD SPECIMENOrdering Facility: [facility] Address:[address] [place], [place] [address]Performed By: #### 17336-2 ####[facility] LABCLIA [id number] [place] [address] Bilirubin [Mass/Vol]0.2 mg/dLNormal0.2-1.3CKet[facility] Behavior[facility] on above:Order Comment: Specimen Type: BLOOD SPECIMENOrdering Facility: [facility] Address:[address] [place], [place] [address]Performed By: #### 82420-1 ####[facility] LABCLIA [id number] [place], [place] [address]Nwgptdf [Mass/Vol]9.7 mg/dLNormal8.5-10.2CKettering Health Behavioral [facility] Center on above:Order Comment: Specimen Type: BLOOD SPECIMENOrdering Facility: [facility] Address:[address] [place], [place] [address]Performed By: #### 52776-2 ####[facility] LABIA [id number] [place], [place] [address]Rccteybf [Moles/Vol]99 mmol/XSwayki89-087NoxftjvlsSt. Francis Hospital on above:Order Comment: Specimen Type: BLOOD SPECIMENOrdering Facility: [facility] Address:[address] [id number] By: #### 35463- 8 ####[facility] LABCLIA [id number] [place], [place] [address]WM0 [Moles/Vol]25 mmol/EOokzwv55-67MbnzzzwgvSt. Francis Hospital on above:Order Comment: Specimen Type: BLOOD SPECIMENOrdering Facility: [facility] Address:[address] [place], [place] [address]Performed By: #### 99951-3 ####[facility] LABCLIA [id number] [place], [place] [address]Mevszpazdy [Mass/Vol]0.71 mg/dL Normal0.58-0.96[facility] on above:Order Comment: Specimen Type: BLOOD SPECIMENOrdering Facility: [facility] Address:[address] [place], [place] [address]Performed By: #### 73370-5 ####[facility] LABCLIA [id number] [place], [place] [address]Zhqcxjbmbh and Glomerular filtration rate.predicted panel (S/P/Bld)112 mL/min/1.73m???Normal>=60[facility] on above:Order Comment: Specimen Type: BLOOD SPECIMENOrdering Facility: [facility] Address:[address] [place], [place] [address]Result Comment: Estimated Glomerular Filtration Rate (eGFR) is calculated using the 2020 CKD-EPI creatinine equation. This equation utilizes serum creatinine, sex, and age as parameters. The creatinine assay has traceable calibration to isotope dilution- mass spectrometry. Refer to KDIGO guidelines for clinical interpretation. In patients with unstable renal function, e.g. those with acute kidney injury, the eGFR may not accurately reflect actual GFR.Performed By: #### 76696-9 ####[facility] LABCLIA [id number] [place], [place] [address]Rbaltji [Mass/Vol]79 mg/xJFigvdb66-30Cdknvjuzc Clinic ClevelandComment on above:Order Comment: Specimen Type: BLOOD SPECIMENOrdering Facility: [facility] Address:[address] [place], [place] [address]Result Comment: The [place] Diabetes Association (ADA) provides guidance for cutoff values for fasting glucose and random glucose. The ADA defines fasting as no caloric intake for at least 8 hours. Fasting plasma glucose results between 100 to 125 mg/dL indicate increased risk for diabetes (prediab etes). Fasting plasma glucose results greater than or [...] Standards of Medical Care in Diabetes 2016, [place] Diabetes Association. Diabetes Care. 2016.39(Suppl 1).Performed By: #### 16571-8 ####[facility] LABCLIA [id number] [place], [place] [address]Uryhkujmw [Moles/Vol]4.0 mmol/LNormal3.7-5.1CKettering Health Behavioral [facility] Center on above:Order Comment: Specimen Type: BLOOD SPECIMENOrdering Facility: [facility] Address:[address] [place], [place] [address]Performed By: #### 21704-3 ####[facility] LABCLIA [id number] [place], [place] [address]Ertvgph [Mass/Vol]7.1 g/dLNormal6.3-8.0[facility] on above:Order Comment: Specimen Type: BLOOD SPECIMENOrdering Facility: [facility] Address:[address] [place], [place] [address]Performed By: #### 09148- 8 ####[facility] LABCLIA [id number] [place], [place] [address]Soldlv [Moles/Vol]134 mmol/AFoi718-732ArvajiofnSt. [facility] Hospital on above:Order Comment: Specimen Type: BLOOD SPECIMENOrdering Facility: [facility] Address:[address] [place], [place] [address]Performed By: #### 40245-4 ####[facility] LABCLIA [id number] [place], [place] [address]Rila nitrogen [Mass/Vol]8 mg/dL Normal7-21[facility] on above:Order Comment: Specimen Type: BLOOD SPECIMENOrdering Facility: [facility] Address:[address] [place], [place] [address]Performed By: #### 37753-3 ####[facility] LABCLIA [id number] [place] [address] Ferritin SerPl-mCncon 97-44-4395Anpbtpdk [Mass/Vol]73.8 ng/sFCvcurm61.7-205.1 [facility] on above:Order Comment: Specimen Type: BLOOD SPECIMENOrdering Facility: [facility] Address:[address] [place], [place] [address]Performed By: #### 38888-1, 2276-4, 3016-3 ####[facility] LABIA [id number] [place] [address] [place] AMERICAFolate SerPl-mCncon 61-28-0227Bhlcqa [Mass/Vol] ng/mLNormal>4.7CKettering Health Behavioral [facility] Center on above:Order Comment: Specimen Type: BLOOD SPECIMENOrdering Facility: [facility] Address:[address] [place], [place] [address]Result Comment: A result of > 20 ng/mL is not necessarily indicative of a pathologic or treatable condition: it reflects a limitation of the test methodology. Assay reference range: 4.8 to 24.2 ng/mL. Suitable for detection of folate deficiency. Reference: Folate III (Folate III) [package insert V 1.0 [place]]. [employer], [place], [place]: February 2015.Performed By: #### 2132-9, 2284-8 ####[facility] LABIA [id number] [place] [address] [place] AMERICAIron and Iron binding capacity panelon 05-28-2024 Iron [Mass/Vol]68 ug/hNLsobjj72-051FucrbjclsSt. [facility] Hospital on above: Order Comment: Specimen Type: BLOOD SPECIMENOrdering Facility: [facility] Address:[address] [place], [place] [address]Performed By: #### 28355- 8, 2276-4, 3016-3 ####[facility] LABCLIA [id number] [address] AMERICAIron binding capacity [Mass/Vol]367 ug/dBEeysjk718-289TqpdedcqvSt. Francis Hospital on above: Order Comment: Specimen Type: BLOOD SPECIMENOrdering Facility: [facility] Address:[address] [place], [place] [address]Performed By: #### 75867- 8, 2276-4, 3016-3 ####[facility] LABIA [id number] [address] AMERICAIron/TIBC [Molar ratio]18.5 %Zolnbk45.0-57.0[facility] on above:Order Comment: Specimen Type: BLOOD SPECIMENOrdering Facility: [facility] Address:[address] [place], [place] [address]Performed By: #### 45961- 8, 2276-4, 3016-3 ####[facility] LABIA [id number] [address] OF AMERICATS SerPl-aCncon 15-51-3984MVZ Qn2.940 m[IU]/LNormal0.270-4.200[facility] on above:Order Comment: Specimen Type: BLOOD SPECIMENOrdering Facility: [facility] Address:[address] [place], [place] [address]Result Comment: If the patient is , TSH reference range varies by gestational period: First Trimester (weeks 9-12): 0.180-2.990 mIU/L Second Trimester: 0.110-3.980 mIU/L Third Trimester: 0.480-4.710 mIU/L Danny Varela et al. A Practical Approach for the Verifications and Determination of Site- and Trimester-Specific Reference Intervals for Thyroid Function tests in . Thyroid, 2019:29:3:412-420.Saeed Pan, et al. 2017 Guidelines of the [place] Thyroid Association for the Diagnosis and Management of Thyroid Disease during and the . Thyroid, 2017:27:3:315-389. Performed By: #### 79783-1, 2276-4, 3016-3 ####[facility] LABCLIA [id number] [place] [address] [place] FISHER-TITUS MEDICAL CENTERVit B12 SerPl-mCncon 81-31-5285Sdkwzsqpn (Vitamin B12) [Mass/Vol]487 pg/oOCulpsr872-0324Czvvjhzxc Clinic ClevelandComment on above:Order Comment: Specimen Type: BLOOD SPECIMENOrdering Facility: [facility] Address:[address] [place], [place] [address]Performed By: #### 2132-9, 2284-8 ####[facility] LABIA [id number] [address] STATES OF AMERICABhCG Quanton 19-95-5417IGK.beta subunit Qn101 m[IU]/mLHigh1-3Fisher [facility] CampusComment on above:Result Comment: 'F NON < 1 - 3' ' 0.2 - 1 WEEK = 5 TO 50' ' 1 - 2 WEEKS = 50 - 500' ' 2 - 3 WEEKS = 100 - 5000' ' 3 - 4 WEEKS = 500 - 61879' ' 4 - 5 WEEKS = 1000 - 06615' ' 5 - 6 WEEKS = 11340 - 209768' ' 6 - 8 WEEKS = 63010 - 716813' ' 8 - 12 WEEKS = 36742 - 987601'Performed By: #### 3504762 #### [facility] [address] [place], [place] [address]BJKPzc 95-52-4923ISGLLajfvmynf (HEMASA) SANNA RENDON ([id number]) 1985 F Date Time Provider Department 05/14/24 [...] for deficiency. 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 request any additional testing, we [...] Date Reviewed: 04/28/2024 Reviewed by: Katherine Negrete APRN.COUNCILOR - Fully Assessed Reason for Visit: Patient [...] 08/01/2022 Encounter Status:Closed by RACHAEL JOHNSON on 05/14/24NoSelect Medical [facility] CBC WITH AUTO DIFFon 90-32-5880GCIKIWSRW ABSOLUTE NDVQ0PDHW HealthcareBasophils/100 WBC (Bld)0.2 %0.2 - 2.0 %NOMS HealthcareEosinophils/100 WBC (Bld)0.7 %Low0.9 - 7.0 %NOMS HealthcareErythrocyte distribution width (RBC) [Ratio]13 %11.0 - 15.0 %NOMS HealthcareHematocrit (Bld) [Volume fraction]35.6 % Low36.0 - 48.0 %NOMS HealthcareHemoglobin (Bld) [Mass/Vol]12.3 g/dL12.0 - 16.0 g/dLNOMS HealthcareIMMATURE GRANULOCYTES ABS AUTO0.04HighNOMS HealthcareImmature granulocytes/100 WBC (Bld)0.4 %0.0 - 0.5 %[facility] HealthcareInterpretation and review of laboratory resultsAbnormalNOMS HealthcareLYMPHOCYTES ABSOLUTE AUTO2.5 N[facility] HealthcareLymphocytes/100 WBC (Bld)26.1 %20.5 - 60.0 %NOMS HealthcareMCH (RBC) [Entitic mass]31 pg26.7 - 34.0 pgNOWestern Missouri Medical CenterMCHC (RBC) [Mass/Vol]34.6 g/dL29.9 - 35.2 g/dLNOWestern Missouri Medical CenterMCV (RBC) [Entitic vol]89.7 fL81.0 - 99.0 fL N[facility]S HealthcareMONOCYTES ABSOLUTE AUTO0.6NOMS HealthcareMonocytes/100 WBC (Bld)6 %1.7 - 12.0 %NOMS HealthcareNEUTROPHILS ABSOLUTE AUTO6.3[facility] Neutrophils/100 WBC (Bld)66.6 %43.0 - 75.0 %[facility] HealthcarePlatelet mean volume (Bld) [Entitic vol]9.9 fL9.5 - 13.5 fLNOWestern Missouri Medical CenterTB EO #0.1[facility] TB [id number] [facility] HospitalTB RBC3.97LowNOWestern [facility] Medical CenterTB WBC9.4[facility] CLINISYNCEllis Fischel Cancer CenterLon 05-10-2024 Specimen: [id number] Received: 05/12/24120 Status: BALDOMERO Andrade Num: [id number] Spec Type: Surgical Subm Dr: Wilton Herrmann Tissues: A Placenta - Other than 3rd Trimester (14 WK PLACENTA) Procedures: HE/3, Gross/Micro L4 Age/ Patient Sex Location Account Attending Physician Sanna Rendon 38/F LABELL [id number] Wilton Herrmann SPEC NUM: [id number] RECD: 05/12/24-1209 STATUS: BALDOMERO ANDRADE NUM: [id number] AMARILYS: 05/10/24- SUBM DR: Wilton Herrmann ENTERED: 05/12/24-1215 [facility] DR: Piyush,Lab SPEC TYPE: Surgical DEPT: [facility] ENTERED BY: [id number] RECV BY: [id number] ORDERED: HE/3, Gross/Micro L4 ORDERED: HE/3, Gross/Micro [...] [id number] Received: 05/12/24 Status: BALDOMERO Andrade Num: [id number] Spec Type: Surgical Subm Dr: Wilton Herrmann Tissues: A Placenta - Other than 3rd Trimester (14 WK PLACENTA) Procedures: HE/3, Gross/Rah L4 Patient: Sanna Rendon [id number] (Continued) Specimen: [id number] Received: 05/12/24 (Continued) Gross Description (Continued) Signed (signature on file) Vivi Hill MD 05/13/24 1605 Specimen: [id number] Received: 05/12/24 Status: BALDOMERO Andrade Num: [id number] Spec Type: Surgical Subm Dr: Wilton Herrmann Tissues: A Placenta - Other than 3rd Trimester (14 WK PLACENTA) Procedures: HE/3, Gross/Micro L4 Patient: Sanna Rendon [id number] (Continued) Specimen: [id number] Received: 05/12/24-1200 (Continued) Gross Description (Continued) GENERAL: Trimmed Weight [...] and uniform. Cassettes: A1 Rolled membrane A2-A3 Fine Arts Chair sections of placenta (3, ss, BS25-17 A) ABBY . CPT Codes 72730 Specimen: [id number] Received: 05/12/24-120 Status: BALDOMERO Colealexa Num: [id number] Spec Type: Surgical Subm Dr: Wilton Herrmann Tissues: A Placenta - Other than 3rd Trimester (14 WK PLACENTA) Procedures: HE/3, Gross/Micro L4 Patient: Sanna Rendon [id number] (Continued) Signed (signature on file) Vivi Hill MD 05/13/[address] [place] [address] Physician GroupUS OB TRANSVAGINALon 05-06-2024 US OB TRANSVAGINALTITLE OF EXAM: OB Ultrasound: REASON FOR EXAM: [...] electronically signed and approved by the interpreting radiologist.NormalNot AvailableComment on above:Order Comment: US OB VIABILITY PLEASE PERFORM TRANSVAGINAL ULTRASOUND IF INDICATED Patient's last menstrual period was 01/29/2024.Urinalysis macro (dipstick) panel (U)on 71-16-5476Hpcsbhusa, UANegativeNegative - 4(70) +++ mg/dLNOMS Healthcare Blood, UANegativeNegative - 50 Max/mcLNOPR HealthcareClarity, UAClearNOMS HealthcareColor, UAYellowNOMS HealthcareGlucose, UANegativeNegative - 2000(110) ++++ mg/dLNOPR HealthcareInterpretation and review of laboratory resultsNormal NOMS HealthcareKetones, UANegativeNegative - 160(16) ++++ mg/dLNOMS Healthcare Leukocytes, UANegativeNegative - 500+++ John/mcLNOPR HealthcareNitrite, UA NegativeNegative - PositiveNOMS HealthcarepH, UA65 - 9NOMS HealthcareProtein, UA NegativeNegative - 2000(20) ++++ mg/dLNOMS HealthcareSpec Grav, UA1.011 - 1.03 NOMS HealthcareUrobilinogen, UA0.20.2 - 12 mg/dLNOPR HealthcareNOMS Healthcare BOX TESTon 33-83-0369OVN TEST SENT OUTYNOMS EutihmtjebAZW5LCQLVTYXF Healthcare TXT316NOMS HealthcareUNITY BOX CLINISYNCEllis Fischel Cancer CenterTBH DRUG SCREEN RAPID (URINE)on 62-72-8750NPPAMDJEOYC SCREEN URINENegativeNEGATIVENOMS HealthcareBARBITURATES SCREEN URINENegative NEGATIVENOMS HealthcareBENZODIAZEPINES SCREEN URINENegativeNEGATIVENOMS HealthcareBUPRENORPHINE SCREEN URINENegativeNEGATIVENOMS HealthcareComment on above:DRUG CLASS TEST SYSTEM CUT-OFF CONCENTRATIONS ARE FOLLOWS: AMP (Amphetamine): 500 ng/mL BAR (Barbiturates): 200 ng/mL BZO (Benzodiazepines): 150 ng/mL BUP (Buprenorphine): 10 ng/mL INDIA (Cocaine): 150 ng/mL mAMP (Methamphetamine): 500 ng/mL MTD (Methadone): 200 ng/mL OPI (Opiates): 100 ng/mL OXY (Oxycodone): 100 ng/mL PCP (Phencyclidine): 25 ng/mL THC (Cannabinoids): 50 ng/mL TCA (Trycyclic Antidepressants): 300 ng/mL CANNABINOID SCREEN URINENegativeNEGATIVENOMS HealthcareCOCAINE SCREEN URINE NegativeNEGATIVENOMS HealthcareMETHADONE SCREEN URINENegativeNEGATIVENOMS HealthcareMETHAMPHETAMINES SCREEN URINENegativeNEGATIVENOMS HealthcareOPIATE SCREEN URINENegativeNEGATIVENOMS HealthcareOXYCODONE SCREEN URINENegative NEGATIVENOMS HealthcarePHENCYCLIDINE SCREEN URINENegativeNEGATIVENOMS Healthcare TRICYCLIC ANTIDEPRESSANT URINENegativeNEGATIVENOMS HealthcareCLINISYNCNOMS HealthcareHCG ( test) Ql (U)on 11-21-7744Sndqrmzlikuuwg and review of laboratory resultsAbnormalCACHE VALLEY [facility] HealthcarePreg Test, UrPositiveNegativeNOMetropolitan Saint Louis Psychiatric Center HealthcareUrinalysis macro (dipstick) panel (U)on 04-04-2024 Bilirubin, UANegativeNegative - 4(70) +++ mg/dLNOMS HealthcareBlood, UANegative Negative - 50 Max/mcLNOMS HealthcareClarity, UAClearNOPR HealthcareColor, UA YellowNOMS HealthcareGlucose, UANegativeNegative - 2000(110) ++++ mg/dLNOMS HealthcareInterpretation and review of laboratory resultsNormalEllis Fischel Cancer Center Ketones, UANegativeNegative - 160(16) ++++ mg/dLNOMS HealthcareLeukocytes, UA NegativeNegative - 500+++ John/mcLNOMS HealthcareNitrite, UANegativeNegative - PositiveNOMS HealthcarepH, UA5.55 - 9NOMS HealthcareProtein, UANegativeNegative - 2000(20) ++++ mg/dLEllis Fischel Cancer CenterSpec Grav, UA1.021 - 1.03NOWestern [facility] Urobilinogen, UA1.00.2 - 12 mg/dLCommunity HealthC Urineon 93-01-0342Vjeafine identified Cx Nom (U)Microbiology PROCEDURE: Urine Culture [R1] SOURCE: U CleanCatch BODY SITE: COLLECTED DATE/TIME: 03/01/2024 10:30 EDT RECEIVED DATE/TIME: 03/01/2024 13:48 EDT START DATE/TIME: 03/01/2024 13:48 EDT FREE TEXT SOURCE: Wilton HERRMANN DO, DO, Corey R FINAL REPORTS Final Report [] Verified Date/Time: 03/03/2024 08:52 EST 2,000 cfu/ml Mixed skin contaminants Performing Locations R1: This test was performed at: [facility], [address] [place] [address], [address] , , IamlceWzfpbhSouthern Ohio Medical CenterComment on above:Performed By: #### [id number] #### [facility] [address] [place] [id number] Quanton 48-83-1876NMZ.beta subunit Qn747 m[IU]/mLHigh1-3 [facility] CenterComment on above:Result Comment: 'F NON < 1 - 3' ' 0.2 - 1 WEEK = 5 TO 50' ' 1 - 2 WEEKS = 50 - 500' ' 2 - 3 WEEKS = 100 - 5000' ' 3 - 4 WEEKS = 500 - 96366' ' 4 - 5 WEEKS = 1000 - 14983' ' 5 - 6 WEEKS = 75107 - 680653' ' 6 - 8 WEEKS = 37862 - 532005' ' 8 - 12 WEEKS = 47370 - 104963'Performed By: #### [id number] #### [facility] [address] [place] [address] [id number] By: SYSTEM SYSTEM on 68-13-9301JUX.beta subunit Qn747 m[IU]/mLHigh1 - 3 mIU/mLRemisol ChemComment on above:Result Comment: 'F NON < 1 - 3' ' 0.2 - 1 WEEK = 5 TO 50' ' 1 - 2 WEEKS = 50 - 500' ' 2 - 3 WEEKS = 100 - 5000' ' 3 - 4 WEEKS = 500 - 31313' ' 4 - 5 WEEKS = 1000 - 78712' ' 5 - 6 WEEKS = 08219 - 729686' ' 6 - 8 WEEKS = 89149 - 724324' ' 8 - 12 WEEKS = 61242 - 284666'BhCG Quanton 03-11-6026CWS.beta subunit Qn268 m[IU]/mLHigh1-3[facility] CampusComment on above:Result Comment: 'F NON < 1 - 3' ' 0.2 - 1 WEEK = 5 TO 50' ' 1 - 2 WEEKS = 50 - 500' ' 2 - 3 WEEKS = 100 - 5000' ' 3 - 4 WEEKS = 500 - 05667' ' 4 - 5 WEEKS = 1000 - 79151' ' 5 - 6 WEEKS = 23618 - 290490' ' 6 - 8 WEEKS = 31802 - 162629' ' 8 - 12 WEEKS = 07627 - 280905'Performed By: #### [id number] #### [facility] [address] [place] [address]FANKzi 11-35-4765LKNRIfjrkoacv (JASPALASA) SANNA RENDON ([id number]) 1985 F Date Time Provider Department 02/27/24 [...] Fully Assessed Reason for Visit: Patient Question [6547] Prescriptions as of 02/28/2024 - enoxaparin (LOVENOX) [...] 08/01/2022 Encounter Status:Closed by RACHAEL JOHNSON on 02/28/24NoUniversity [facility]als [facility] Quanton 90-83-6263AVW.beta subunit Qn123 m[IU]/mLHigh1-3[facility] CampusComment on above:Result Comment: 'F NON < 1 - 3' ' 0.2 - 1 WEEK = 5 TO 50' ' 1 - 2 WEEKS = 50 - 500' ' 2 - 3 WEEKS = 100 - 5000' ' 3 - 4 WEEKS = 500 - 97457' ' 4 - 5 WEEKS = 1000 - 73238' ' 5 - 6 WEEKS = 04241 - 622930' ' 6 - 8 WEEKS = 15119 - 052680' ' 8 - 12 WEEKS = 31065 - 686542'Performed By: #### [id number] #### [facility] [address] [place] [address] [id number] By: SYSTEM SYSTEM on 95-21-8685DCQ.beta subunit Qn123 m[IU]/mLHigh1 - 3 mIU/mLRemisol ChemComment on above:Result Comment: 'F NON < 1 - 3' ' 0.2 - 1 WEEK = 5 TO 50' ' 1 - 2 WEEKS = 50 - 500' ' 2 - 3 WEEKS = 100 - 5000' ' 3 - 4 WEEKS = 500 - 80626' ' 4 - 5 WEEKS = 1000 - 28935' ' 5 - 6 WEEKS = 60538 - 464223' ' 6 - 8 WEEKS = 83714 - 196664' ' 8 - 12 WEEKS = 51249 - 338905'JnuV8xsr 64-11-4401TvP0r (Bld) [Mass fraction]6.0 %High<=5.9[facility] CampusComment on above:Performed By: #### [id number] #### [facility] [address], [place] [address]HOT Screen 4th Generation wRfxon 65-34-4953BAD 1+2 Ab+HIV1 p24 Ag IA QlNon-ReactiveInvalid Interpretation CodeNon ReactiveFisher [facility] Mid[facility] CampusComment on above:Result Comment: HIV-1/HIV-2 antibodies and HIV-1 p24 antigen were NOT detected. There is no laboratory evidence of HIV infection. HIV Negative Performed at: [facility] [id number] PhD Jd Garciaformed By: #### [id number] #### [facility] [address], [place] [address]ObVI Quanton 43-76-4563VOP.beta subunit Qn52 m[IU]/mLHigh1-3 [facility] CenterComment on above:Result Comment: 'F NON < 1 - 3' ' 0.2 - 1 WEEK = 5 TO 50' ' 1 - 2 WEEKS = 50 - 500' ' 2 - 3 WEEKS = 100 - 5000' ' 3 - 4 WEEKS = 500 - 33105' ' 4 - 5 WEEKS = 1000 - 06759' ' 5 - 6 WEEKS = 43186 - 468401' ' 6 - 8 WEEKS = 81396 - 216371' ' 8 - 12 WEEKS = 39503 - 218456'Performed By: #### [id number] #### [facility] [address], [place] [address]CVNXXEEYGSookxrt By: SYSTEM SYSTEM on 56-60-0613Onxlhpipunj [Mass/Vol]225 mg/wOXyqs159 - 200 mg/dLRemisol ChemCholesterol in HDL [Mass/Vol] 40 mg/dLInvalid Interpretation CodeRemisol ChemComment on above:Result Comment: '>= 60 LOW RISK' '<= 40 HIGH RISK'Cholesterol in LDL [Mass/Vol]171 mg/dLHigh<=129mg/dLRemisol ChemCholesterol in VLDL [Mass/Vol]42 mg/dLHigh7 - 40 mg/dLRemisol ChemHCG.beta subunit Qn52 m[IU]/mLHigh1 - 3 mIU/mLRemisol ChemComment on above:Result Comment: 'F NON < 1 - 3' ' 0.2 - 1 WEEK = 5 TO 50' ' 1 - 2 WEEKS = 50 - 500' ' 2 - 3 WEEKS = 100 - 5000' ' 3 - 4 WEEKS = 500 - 25964' ' 4 - 5 WEEKS = 1000 - 80996' ' 5 - 6 WEEKS = 79485 - 370454' ' 6 - 8 WEEKS = 50299 - 618137' ' 8 - 12 WEEKS = 62933 - 971304'Triglyceride [Mass/Vol]212 mg/dLHigh <=149mg/dLRemisol ChemTSH Qn5.68 m[IU]/LHigh0.34 - 5.60 mcIU/mLRemisol Chem CHEMISTRYOrdered By: Chelsey Price on 64-94-9868CzA4a (Bld) [Mass fraction]5.9 %Normal<=5.9%[facility] KcggDugbXIChtO6daz 95-45-9658ElV1k (Bld) [Mass fraction]5.9 % Normal<=5.9[facility] CenterComment on above:Performed By: #### [id number] #### [facility] [address], [place] [address]Ptzkb Panelon 88-58-4399Jwrbihauhzp [Mass/Vol]225 mg/dLHigh 120-200[facility] CenterComment on above:Performed By: #### [id number] #### [facility] [address], [place] [address]Ypihtcylwct in HDL [Mass/Vol]40 mg/dLInvalid Interpretation CodeKettering Health – Soin Medical CenterComment on above:Result Comment: '>= 60 LOW RISK' '<= 40 HIGH RISK'Performed By: #### [id number] #### [facility] [address], [place] [address]Kxkxbpzjkdh in LDL [Mass/Vol]171 mg/dLHigh<=129[facility] CenterComment on above:Performed By: #### [id number] #### [facility] [address], [place] [address]Tvotgtmvmay in VLDL [Mass/Vol]42 mg/dLHigh7-40[facility] CenterComment on above:Performed By: #### [id number] #### [facility] [address], [place] [address]Xoewfceruzux [Mass/Vol]212 mg/dLHigh<=149[facility] CenterComment on above:Performed By: #### [id number] #### [facility] [address], [place] [address]SYIoh 62-34-6024HDT Qn5.68 m[IU]/LHigh0.34-5.60[facility] CenterComment on above:Performed By: #### [id number] #### [facility] [address], [place] [address]Mcfsbaddxv Visit Summaryon 81-98-6276Vkquljeovl Visit Summary Ambulatory Visit Summary SANNA RENDON [...] EST With: Penelope CASAS DO, FAAFP Where: [facility] [address], [place] [address]- You Need to Schedule the Following Appointments Follow Up with Penelope CASAS DO, FAAFP, FAM, PED When: In 3 months Where: [address], [place] [address]- You Need to Complete the Following HgbA1c, [...] virus infection Vaginal marlee (more content not included)...[facility] Medicine Office/Clinic Noteon 32-94-8091Wxmziz Medicine Office/Clinic NoteFacharles river hospital Medicine Office/Clinic Note Chief Complaint Patient here [...] having difficulty affording your medications? yes and noissues Do you have any of the following symptoms? Vision problems? No Sexual dysfunction? No GI-Nausea/committing/bloating? No Lightheadedness? No Paresthesias, Ulcerations or sores? [...] medical support in addressing this problem. Your BMIand weight management will be followed at subsequent visits. 3. Obesity (E66.9: Obesity, unspecified) Diet and exercise BMI goal of 25 4. Antiphospholipid syndrome (D68.61: Antiphospholipid syndrome) Lovenox 40 mg subcu, continue to follow-up with salsa dance instructor 5. Gestational diabetes (O24.419: Gestational diabetes mellitus in , unspecified control) Metformin 500 mg daily XR tabs 2/day per LEAD SOFTWARE TEST ENGINEER Ordered: HgbA1c HgbA1c HgbA1c HgbA1c 6. Well [...] FAAFP, CHRIS, PED In 3 months [address] [facility], [place] [address]- Additional Instructions: Patient Education Acute Bronchitis, Adult Problem List/Past Medical History Ongoing Acute (more content not included)...[facility] CenterComment on above:Result Comment: Electronically Signed By: Penelope CASAS DO, FAAFP\.br\Date and Time Signed: 02/05/24 14:44 EDTAmbulatory Visit Summaryon 02-02-2024 Ambulatory Visit SummaryAmbulatory Visit Summary SANNA RENDON :1985 Visit Date:02/02/2024 [...] Community acquired pneumonia Refills: 5 Pickup at [facility] 1985 New azithromycin (azithromycin 250 mg Tab 5-day Dose Pack (Z-Jonny)) 1 Packets By Mouth As Directed Community acquired pneumonia Duration: 5 Days as directed on package labeling Pickup at [facility] 1985 Unchanged enoxaparin (Lovenox 40 mg/ 0.4 [...] physician if questions or concerns Pharmacy Information [facility] 1986: [address], [place] [id number] [phone] Allergies Milk Products (Illness) ciprofloxacin (Numbness and [...] you for choosing us for your care. [facility] Medicine Office/Clinic Noteon 53-52-9566Dujqun Medicine Office/Clinic NoteFacharles river hospital Medicine Office/Clinic Note Chief Complaint SOB and [...] 38 Years White Female presenting [facility] with body aches and productive cough [...] moist mucous membranes, TMs and external ear canalsnormal, no sinus tenderness, no tonsillar enlargement Cardio: RRR, no murmur/rubs/gallops Resp: +Crackles bilateral lower lung bases, mild expiratory wheezing in lower lung bases Assessment/Plan 1. Community acquired pneumonia (J18.9: Pneumonia, unspecified organism) albuterol inhaler prescribed, take q4h prn azithromycin x5 days prescribed take tylenol or motrin prn drink plenty of fluids Ordered: albuterol, 2 puff(s), Inhalation, q6hr, 1 EA, Refill(s) 5, [facility] 1985, 168, cm, 02/01/2414:43:00 EDT, Height/Length Dosing, 101.1, kg, 02/02/24 14:43:00 EDT, Weight Dosing azithromycin, = 1 packet(s), Oral, As Directed, as directed on package labeling, X 5 day(s), # 6 tab(s), Refills(s) 0, Pharmacy: [facility] 1985, 168, cm, 02/02/24 14:43:00 [...] medical support in addressing this problem. Your BMIand weight management will be followed at subsequent visits. 3. Non-smoker (Z78.9: Other specified health status) stable 4. Obesity (E66.9: Obesity, unspecified) increase whole foods, decrease processed foods exercise at least 2.5 hours weekly Follow-up With When Contact Information Anni Bernstein MD, FAM, MED Only if needed [address] [place] [phone] Additional Instructions: Problem List/Past Medical History Ongoing [...] Vitamin D, 2000 International_Unit (more content not included)...[facility] CenterComment on above:Result Comment: Electronically Signed By: Anni Bernstein MD\.br\Date and Time Signed: 02/01/2415:03 EDTMRI Brain w/o Contraston 72-68-8296BFQ Brain w/o ContrastExam Date/Time: 12/06/2023 14:48 EDT Reason for Exam: [...] Pablo Barker MD Transcribed by: LINDY Technologist: [facility] CampusCortisolon 16-05-8540Ftlpcgci [Mass/Vol]12.5 microgram/dLInvalid Interpretation Code 6.2-19.4[facility] CampusComment on above:Result Comment: Please Note: The reference interval and flagging for this test is for an AM collection. If this is a PM collection please use: Cortisol PM: 2.3-11.9 Performed at: [facility] [address] [place], [place] [id number] PhD Jd Garciaformed By: #### [id number] #### [facility] [address], [place] [address]Z9 Freeon 24-70-1890Bbbz T3 [Mass/Vol]2.5 pg/mLInvalid Interpretation Code2.0-4.4FWVUMedicine Harrison Community HospitalComment on above:Result Comment: Performed at: [facility] [address], [place] [id number] PhD Jd MontanoPerformed By: #### [id number] #### [facility] [address] [place] [address]Byzurdkeq 73-77-9048Vndhtfv [Catalytic activity/Vol]38 U/L Qazmas83-829OgoxiaKettering Health – Soin Medical CenterComment on above:Performed By: #### [id number] #### [facility] [address], [place] [address]PBJZAIQMXYonappp By: SYSTEM SYSTEM on 02-38-3620Uvznnhf [Catalytic activity/Vol]38 U/AUvqaqx36 - 157 unit/LRemisol ChemCobalamin (Vitamin B12) [Mass/Vol]328 pg/rQPwvutw79 - 1500 pg/mLRemisol ChemCRP [Mass/Vol] 0.2 mg/dLNormal<=1.9mg/dLRemisol ChemFree T4 [Mass/Vol]0.58 ng/dLNormal0.58 - 1.64 ng/dLRemisol ChemTSH Qn4.97 m[IU]/LNormal0.34 - 5.60 mcIU/mLRemisol ChemCRP on 65-36-8080MRJ [Mass/Vol]0.2 mg/dLNormal<=1.9[facility] Comment on above:Performed By: #### [id number] #### [facility] [address], [place] [address]Giuy T4on 33-91-0675Wpmj T4 [Mass/Vol]0.58 ng/dLNormal0.58-1.64 [facility] CenterComment on above:Performed By: #### [id number] #### [facility] [address] [place] [address]CLZQGCBAHOOhmlzof By: Isha Zheng on 52-89-8692AQZ (Bld) [Velocity]18 mm/hNormal0 - 34 mm/hrGRIFFIN [facility]ORIAL [facility] HemeAutoSSSed Rate Automatedon 80-03-4495MMM (Bld) [Velocity]18 mm/hNormal0-34[facility] Comment on above:Performed By: #### [id number] #### [facility] [address] [place] [address]SRTad 63-60-4947JTE Qn4.97 m[IU]/LNormal0.34-5.60[facility] CenterComment on above:Performed By: #### [id number] #### [facility] [address] [place] [address]Oxf B12on 90-10-2545Rprvpmeaa (Vitamin B12) [Mass/Vol]328 pg/mL Vdcjhz06-7222RjsirfKettering Health – Soin Medical CenterComment on above:Performed By: #### [id number] #### [facility] [address] [place] [address]Hfsnyz Medicine Office/Clinic Noteon 41-37-3142Gwawjg Medicine Office/Clinic NoteFami Medicine Office/Clinic Note Chief Complaint Right ear [...] Iron deficiency) Mild, as reported by her salsa dance instructor, labs from 2022 appear normal 6. Pre-diabetes (R73.03: Prediabetes) Last A1c Continue metformin Nutrition: - Maintain optimal weight - Calorie restriction - Plant-based diet; high polyunsatur (more content not included)...[facility] CenterComment on above:Result Comment: Electronically Signed By: Monica Keyes\Date and Time Signed: 11/09/23 15:56 EDTPhysician Referralon 48-06-9962Kplczflef Referral [id number]#[id number] Community HospitalAmbulatory Visit Summaryon 71-41-5619Okbijntpjd Visit Summary SANNA RENDON :1985 Visit Date:10/23/2023 Ambulatory Visit Instructions [...] (Vitamin D) fluticasone nasal (Flonase 0.05 mg/inh Weldon) metformin (MetFORMIN (Eqv-Glucophage XR) 500 mg oral [...] EDT With: Penelope CASAS DO, FAAFP Where: [facility] CareNormalK[facility] Office/Clinic Noteon 32-70-7507Vbppdd Medicine Office/Clinic NoteChief Complaint pt here for right ear drainage, [...] polyps and deviated septum but never had recommendedsurgeries. She has been taking Flonase without relief [...] Mouth: mucous membranes pink, moist and intact. [place] posterior oropharynx, no palatal inflammation,uvula midline, no cobble-stoning, no enlarged tonsils, no [...] normal. No erythema, edema, effusion, crepitus, or ecchymosis.Straight leg raise negative Extremity: No clubbing, cyanosis, edema, or deformity. Normal ROM with upper and lower extremities,bilaterally. Neurologic: Cranial nerves II-XII grossly intact. motor [...] 106.2, kg, 10/23/23 16:55:00 EDT, Weight Dosing [facility] External Ambulatory Referral 2. Nasal polyps (J33.9: Nasal polyp, unspecified) pt reported - moved before previous ENT could perform surgery - submitted new referral at this time Ordered: [facility] External Ambulatory Referral 3. Deviated septum (J34.2: Deviated nasal septum) pt reported - moved before previous ENT could perform surgery - see #2 Ordered: [facility] External Ambulatory Referral 4. BMI 37.0-37.9, adult [...] medical support in addressing this problem. Your BMIand weight management will be followed at subsequent visits. Ordered: ciprofloxacin-dexamethasone otic, 4 drop(s), Otic, BID for 7 day(s), 7.5 mL, Refill(s) 0, [id number], 168, cm, 10/23/23 16:55:00 EDT, Height/Length Dosing, 106.2, kg, 10/23/23 16:55:00 EDT, Weight Dosing 5. Obesity ( (more content not included)...[facility] Comment on above:Result Comment: Electronically Signed By: Shirlene YEBOAH, Lourdes Baltazar\.br\Date and Time Signed: 10/23/23 17:13 EDTPatient Educationon 11-33-6531Kefzioh EducationENT Deviated Septum The septum is the wall [...] with the flow of air through your nose.It can also block your sinuses and prevent [...] specializes in ear, nose, and throat disorders (sustainable systems analyst, or ENT) for more tests and treatment. [...] Follow these instructions at home: ? Take qpcc-txp-yygomdq and prescription medicines only as told by [...] or get frequent sinus infections due to adeviated septum, you may need to see a health care provider who specializes in ear, nose, and throat disorders (sustainable systems analyst, or ENT) for more tests and treatment. This information is not intended to replace advice given to you by your health care provider. Make sure you discuss any questions you have with your health care provider. Document Revised: 12/12/2021 Document Reviewed: 12/12/2021 [employer] Patient Education ? 2022 [employer] Nasal Polyps Nasal polyps are growths that form in the nose. Inflammation in the nose or sinus openings can leadto changes in the tissue (mucosa) that lines these areas. Long-term inflammation causes the mucosa to grow into a polyp filled with watery mucus. Nasal polyps look like moist, ochoa grapes in the nose. Nasal polyps are not cancer (more content not included)...[facility] CenterCT Abdomen/Pelvis w/o Contraston 22-91-1108AK Abdomen/Pelvis w/o Contrast Exam Date/Time: 09/28/2023 19:58 [...] Given? No Oral contrast amount in ml's: 0NoNewark HospitalB hCG Qualon 14-63-4273Gfni HCG ( test) QlNegativeSouthern [facility] Medical Center Comment on above:Performed By: #### [id number] #### [facility] [address], [place] [address]BNNux 44-86-2924Ztbun gap [Moles/Vol]13 mmol/LNormal6-16[facility] Medical CenterComment on above:Performed By: #### [id number] #### [facility] [address], [place] [address]Uzxxbyq [Mass/Vol]9.9 mg/dLNormal8.9-11.1FWVUMedicine Harrison Community HospitalComment on above:Performed By: #### [id number] #### [facility] [address], [place] [address]Okafakwf [Moles/Vol]101 mmol/HNbpnul596-958CyfsmfKettering Health – Soin Medical CenterComment on above:Performed By: #### [id number] #### [facility] [address], [place] [address]QW2 [Moles/Vol]25 mmol/PMtsgqx66-18GftbkvKettering Health – Soin Medical Center Comment on above:Performed By: #### [id number] #### [facility] [address], [place] [address]Ssceyxvuin [Mass/Vol]0.9 mg/dLNormal0.5-1.3FWVUMedicine Harrison Community HospitalComment on above:Performed By: #### [id number] #### [facility] [address], [place] [address]Hvdadsd [Mass/Vol]94 mg/oKArxonv93-848HnbspjKettering Health – Soin Medical CenterComment on above:Performed By: #### [id number] #### [facility] [address], [place] [address]Gawpafkdu [Moles/Vol]3.6 mmol/LNormal3.5-5.3FWVUMedicine Harrison Community HospitalComment on above:Performed By: #### [id number] #### [facility] [address], [place] [address]Pwmvfj [Moles/Vol]135 mmol/TNnmrfy482-362DqtvuhKettering Health – Soin Medical CenterComment on above:Performed By: #### [id number] #### [facility] [address], [place] [address]Yvov nitrogen [Mass/Vol]8 mg/dLNormal5-21[facility] CenterComment on above:Performed By: #### [id number] #### [facility] [address], [place] [address]Jgrr nitrogen/Creatinine [Mass ratio]9 No YmxkuGks70-64CtxtaxKettering Health – Soin Medical CenterComment on above:Performed By: #### [id number] #### [facility] [address], [place] [address]DVV w/ Auto Diffon 47-99-1215Gkraftynb/100 WBC (Bld)0.7 %Normal 0.0-2.0[facility] Medical CenterComment on above:Performed By: #### [id number] #### [facility] [address], [place] [address]Xwrusuzci/Leukocytes Auto (Bld) [Pure # fraction]0.1 E9/LNormal 0.0-0.2FWVUMedicine Harrison Community HospitalComment on above:Performed By: #### [id number] #### [facility] [address], [place] [address]Qreptkosybw (Bld) [#/Vol]0.0 E9/LNormal0.0-0.5FWVUMedicine Harrison Community HospitalComment on above:Performed By: #### [id number] #### [facility] [address], [place] [address]Ydrqhwnmglg/100 WBC (Bld)0.5 %Normal0.0-8.0[facility] CenterComment on above:Performed By: #### [id number] #### [facility] Laboratory [address] [place] [address]Yzzactpafnp distribution width (RBC) [Ratio]14.3 %High10.9-14.2 [facility] CenterComment on above:Performed By: #### [id number] #### [facility] Laboratory [address] [place] [address]Hqxjscszcg (Bld) [Volume fraction]39.5 %Yinwpz96.0-46.0[facility] CenterComment on above:Performed By: #### [id number] #### [facility] [address] [place] [address]Dbwbzwyyrh (Bld) [Mass/Vol]13.2 g/iWEjztix53.0-16.0[facility] CenterComment on above:Performed By: #### [id number] #### [facility] [address] [place] [address]Hvxfcxsshzt (Bld) [#/Vol]3.5 E9/LNormal1.0-4.0[facility] CenterComment on above:Performed By: #### [id number] #### [facility] [address] [place] [address]Slmgksrkyyc/100 WBC (Bld)35.6 %Oihcxt42.0-50.0[facility] CenterComment on above:Performed By: #### [id number] #### [facility] [address] [place] [address]JKA (RBC) [Entitic mass]29.3 qyTogupe53.0-34.0[facility] CenterComment on above:Performed By: #### [id number] #### [facility] [address] [place] [address]KWQF (RBC) [Mass/Vol]33.5 g/bDFcwlna47.4-36.0[facility] CenterComment on above:Performed By: #### [id number] #### [facility] [address] [place] [address]ORW (RBC) [Entitic vol]87.4 mYGzjnxq54.0-100.0[facility] CenterComment on above:Performed By: #### [id number] #### [facility] [address] [place] [address]Vrlukowbm (Bld) [#/Vol]0.7 E9/LNormal0.2-1.0[facility] CenterComment on above:Performed By: #### [id number] #### [facility] [address] [place] [address]Snhwrcqvtnu (Bld) [#/Vol]5.6 E9/LNormal2.0-7.5FWVUMedicine Harrison Community HospitalComment on above:Performed By: #### [id number] #### [facility] [address] [place] [address]Kwhspnhrlce/100 WBC (Bld)56.4 %Rzglgx62.0-75.0[facility] CenterComment on above:Performed By: #### [id number] #### [facility] [address] [place] [address]Kjwqvsdw mean volume (Bld) [Entitic vol]8.1 fLNormal6.4-10.8 [facility] CenterComment on above:Performed By: #### [id number] #### [facility] [address] [place] [address]Bdajlabxp (Bld) [#/Vol]360.0 E9/UDcyttk568.0-500.0[facility] CenterComment on above:Performed By: #### [id number] #### [facility] [address] [place] [address]AHM (Bld) [#/Vol]4.5 E12/LNormal4.3-5.9[facility] CenterComment on above:Performed By: #### [id number] #### [facility] Laboratory [address], [place] [address]SFP corrected for nucl RBC Auto (Bld) [#/Vol]9.9 E9/LNormal 4.0-11.0[facility] CenterComment on above:Performed By: #### [id number] #### [facility] Laboratory [address], [place] [address]RCYKTTVAXRxdwncy By: SYSTEM SYSTEM on 60-19-1321Nbkiwkf [Mass/Vol]4.8 g/dLNormal3.3 - 5.0 gm/dLRemisol ChemAlbumin/Globulin [Mass ratio] 1.6 {ratio}Normal1.1 - 2.2Remisol ChemALP [Catalytic activity/Vol]66 [iU]/d Erzaie92 - 98 Int._Unit/LRemisol ChemALT No additional P-5'-P [Catalytic activity/Vol]16 [iU]/dNormal6 - 46 Int._Unit/LRemisol ChemAnion gap [Moles/Vol] 13 mmol/LNormal6 - 16 mEq/LRemisol ChemAST [Catalytic activity/Vol]15 [iU]/d Normal5 - 43 Int._Unit/LRemisol ChemBilirubin [Mass/Vol]0.3 mg/dLNormal0.0 - 1.1 mg/dLRemisol ChemBilirubin.direct [Mass/Vol]0.0 mg/dLNormal0.0 - 0.4 mg/dL Remisol ChemBilirubin.indirect [Mass or moles/Vol]0.3 mg/dLNormal0.1 - 0.9 mg/dL Remisol ChemCalcium [Mass/Vol]9.9 mg/dLNormal8.9 - 11.1 mg/dLRemisol Chem Chloride [Moles/Vol]101 mmol/NGoptdc257 - 111 mmol/LRemisol ChemCO2 [Moles/Vol] 25 mmol/KPubunj85 - 31 mmol/LRemisol ChemCreatinine [Mass/Vol]0.9 mg/dLNormal0.5 - 1.3 mg/dLRemisol HugqfKNL34 mL/min/1.73 t7Xbrugl>=59mL/min/1.73 z8Sbaqfmp ChemGlobulin (S) [Mass/Vol]3.0 g/dLNormal1.4 - 4.0 gm/dLRemisol ChemGlucose [Mass/Vol]94 mg/eEWqxgts07 - 199 mg/dLRemisol ChemLipase [Catalytic activity/Vol]26 U/OEtzhej28 - 58 unit/LRemisol ChemPotassium [Moles/Vol]3.6 mmol/LNormal3.5 - 5.3 mmol/LRemisol ChemProtein [Mass/Vol]7.8 g/dLNormal6.0 - 7.8 gm/dLRemisol ChemSodium [Moles/Vol]135 mmol/XNskcra542 - 145 mmol/LRemisol ChemUrea nitrogen [Mass/Vol]8 mg/dLNormal5 - 21 mg/dLRemisol ChemUrea nitrogen/Creatinine [Mass ratio]9 mg/mgLow10 - 20Remisol ChemConsent for Treatmenton 10-91-4534Mwvrurh for Treatment [id number]#1.00[facility] HospitalDischarge Instructionson 02-05-2016Pzhoszrcv Instructions [id number]#1.00[facility] Clinical Summaryon [id number] Clinical Summary [place] [id number] ED Clinical Summary Person Information Name: SANNA RENDON Lita/[facility] Age: 37 Years : 1985 Sex: Female Language: South African PCP: Penelope CASAS DO, FAAFP Marital Status: Phone: [phone] Visit Id: Visit Reason: Medical problem - [...] 09/28/2023 21:22:15 09/28/2023 21:22:15 09/28/2023 21:22:15 ADDRESS: [address] [place] [phone] PHYS DOC NOTES: MEDICAL INFORMATION: Prescriptions Given: Medications to Continue with No Changes Other Medications enoxaparin (Lovenox 40 mg/0.4 mL Injection) 40 Milligram Subcutaneous every 24 hours. ergocalciferol (Vitamin D) 2,000 International unit By Mouth every week. fluticasone nasal (Flonase 0.05 mg/inh Weldon) 2 Sprays Nasal Inhalation every day. each nostril. metformin (MetFORMIN (Eqv-Glucophage XR) 500 mg oral tablet, extended release) 2 Tablets By Mouth every day. PATIENT EDUCATION INFORMATION: Instructions: Abdominal Pain, Adult Follow up: With: Address: When: Penelope CASAS [address] [place] [address], [address] [place] [phone] Business (1) In 3 days DIAGNOSIS: 1:Abdominal painNormalFisher Marcus Medical CenterED Note-Physicianon 09-28-2023 ED Note-PhysicianPatient was signed to me with outgoing provider. Patient presented for right-sided abdominal discomfort. At the time of signout she is pending lab work and urinalysis. Blood work is overall very reassuring. Urine shows no signs of UTI. With no identified cause of herdiscomfort will obtain a CT of the abdomen [...] understanding agreement this plan is discharged stable condition.[facility] CenterComment on above:Result Comment: Electronically Signed By: Sidney Daly DO\.br\Date and Time Signed: 09/28/23 21:12 EDTED Note-PhysicianBasic Information Time Seen: Bijan Miramontes PA-C 09/28/2023 18:46 Chief Complaint Pt woke up around 7 am and started getting a pain on R side of belly button. States feels bloated and like her abdomen is coral.Was sent here from [facility] for possible appendicitis. Nausea, denies vomiting. History [...] mL, Soln-IV, IV, Once, Stop date 09/28/23 18:42:00EDT, STAT, Start date 09/28/23 18:42:00 EDT, Infuse [...] mL, IV, Once Home Flonase 0.05 mg/inh Weldon, 2 spray(s), Nasal, Daily Lovenox 40 mg/0.4 [...] Lab Results No qual (more content not included)...[facility] CenterComment on above:Result Comment: Electronically Signed By: Bijan Miramontes PA-C\.br\Date and Time Signed: 09/27/2417:50 EDT\.br\Electronically Co-Signed By: Benny Uribe DO\.br\Date and Time Co-Signed: 09/27/2418:44 EDTED Patient Education Noteon 50-55-0484MG Patient Education NoteGastroenterology Abdominal Pain, Adult Pain in the abdomen [...] these instructions at home: Medicines ? Take nbes-sdm-fpstoph and prescription medicines only as told by [...] your condition for any changes. ? Take esuu-lii-nrbkynd and prescription medicines only as told by [...] provider. Document Revised: 06/04/2020 Document Reviewed: 08/25/2019 [employer] Patient Education ? 2022 [employer].[facility] ED Patient Summaryon [id number] Patient Summary [place] [id number] Patient Discharge Instructions Person Information Name: SANNA RENDON Age: 37 Years Arrival Date: 09/28/2023 18:21:25 Discharge Diagnosis: 1:Abdominal pain Primary Care Physician: Penelope CASAS DO, FAAFP Provider Information Primary Provider: Benny Uribe DO Advanced Employment Instructional Associate:Bijan Miramontes PA-C The exam and treatment you received in the Emergency Department were for an urgent problem and are not intended as complete care. It is important that you follow up with a doctor, nurse practitioner,or physician?s veterinary assistant technician for ongoing care. If your symptoms become worse or you do not improve as expected and you are unable to reach your usual health care provider, you should return to the Emergency Department. We are available 24 hours a day. SANNA RENDON has been given the following list of patient education materials, prescriptions and follow-up instructions: Follow-up Instructions: With: Address: When: Penelope [address], [place] [address] Business (1) In 3 days In the event that this physician does not participate in your insurance network, please consult with your insurance company to find a nearby participating provider. Patient Education Materials: Abdominal Pain, Adult A MESSAGE TO ALL PATIENTS REGARDING OPIOIDS PRESCRIPTION OPIOIDS: WHAT YOU NEED TO KNOW Prescription opioids can be used to help relieve shiirkoz-gg-wmdamk pain and are often prescribed following a [...] and have fewer risks and side effects. Optionsmay include: ? Pain relievers such as acetaminophen, [...] unused prescription opioids: Find your community drug take- back program or yourOffice Maxrmacy mail-back program, or flush them down the toilet, following guidance from the Food and Drug Administration (www.fda.gov/Drugs/ResourcesForYou). ? Visit www.cdc.gov/drugoverdose to learn about the risks of opioids abuse and overdose. ? If you believe you may be struggling with addiction, tell your health complex care nurse and ask for guidance or call [facility]S National Helpline at 2-407-505-HELP. v Source: Dep (more content not included)...[facility] Family Medicine Office/Clinic Noteon 70-44-4857Cyfotp Medicine Office/Clinic NoteChief Complaint abdominal pain HPI Staff 37 year [...] agree with above documented HPI by medical videographer. Portions of this record may have been created with voice recognition artificial intelligence software, specifically NetHooks, Terarecon and or Yedda. Substitutions may have occurred due to the inherent limitations of voice recognition and artificial intelligence software. Patient is a 37-year-old female who presents to [facility] care, for right lower quadrant pain, that started early this morning, worsening symptoms throughout the day, patient states occasionally shewill get bloating sensation and subseptate, pain started around the bellybutton, radiated down to the right lower quadrant, been constant. Patient states she does have her gallbladder and her appendix in place. Patient stated few years ago she had similar pain she had an ovarian cyst that ruptured,patient states slightly nauseous but she is able [...] bowel movement. Patient denies any fevers, chills, vomiting,sore throat, cough, chest pain, shortness of breath, [...] CVA tenderness, or lumbar back pain on ex amination. Extremity: Patient is able to move all 4 extremities equally without pain or weakness. Neurologic: Grossly normal Skin: No rashes, ulcerations, or suspicious lesions Lymph Nodes: no lad Mental Status: alert, active Assessment/Plan BP 150/70. Patient has no history hypertension, she was asymptomatic. Repeat BP 140/90. 37-year-old female presented to [facility], for right lower quadrant abdominal pain, worseningsymptoms throughout the day, history of ovarian cyst, still has her appendix, no right upper quadrant pain. Patient worsening pain on exam, but no acute abdomen. Patient is willing to go to the emergency room after being discharged from [facility], for further evaluation of right lower quadrant [...] loss. We can o (more content not included)...[facility] CenterComment on above:Result Comment: Electronically Signed By: CHARLA QUINTEROSJANET\.br\Date and Time Signed: 09/28/23 18:28 EDTHEMATOLOGYOrdered By: SYSTEM SYSTEM on 82-22-8436Fjfmgseij/100 WBC (Bld)0.7 %Normal0.0 - 2.0 %Remisol HemeBasophils/Leukocytes Auto (Bld) [Pure # fraction]0.1 E9/LNormal0.0 - 0.2 E9/LRemisol HemeEosinophils (Bld) [#/Vol]0.0 E9/LNormal0.0 - 0.5 E9/LRemisol HemeEosinophils/100 WBC (Bld)0.5 % Normal0.0 - 8.0 %Remisol HemeErythrocyte distribution width (RBC) [Ratio]14.3 % High10.9 - 14.2 %Remisol HemeHematocrit (Bld) [Volume fraction]39.5 %Qkyllb10.0 - 46.0 %Remisol HemeHemoglobin (Bld) [Mass/Vol]13.2 g/fJOnuowj39.0 - 16.0 gm/dL Remisol HemeLymphocytes (Bld) [#/Vol]3.5 E9/LNormal1.0 - 4.0 E9/LRemisol Heme Lymphocytes/100 WBC (Bld)35.6 %Fcwwzt08.0 - 50.0 %Remisol HemeMCH (RBC) [Entitic mass]29.3 ulKjvnbr55.0 - 34.0 pgRemisol HemeMCHC (RBC) [Mass/Vol]33.5 g/dL Isxeqr23.4 - 36.0 gm/dLRemisol HemeMCV (RBC) [Entitic vol]87.4 gGQufybq67.0 - 100.0 fLRemisol HemeMonocytes (Bld) [#/Vol]0.7 E9/LNormal0.2 - 1.0 E9/LRemisol HemeMonocytes/100 WBC (Bld)6.8 %Normal4.0 - 14.0 %Remisol HemeNeutrophils (Bld) [#/Vol]5.6 E9/LNormal2.0 - 7.5 E9/LRemisol HemeNeutrophils/100 WBC (Bld)56.4 % Jeadtx66.0 - 75.0 %Remisol HemePlatelet mean volume (Bld) [Entitic vol]8.1 fL Normal6.4 - 10.8 fLRemisol HemePlatelets (Bld) [#/Vol]360.0 E9/UMkqegb105.0 - 500.0 E9/LRemisol HemeRBC (Bld) [#/Vol]4.5 E12/LNormal4.3 - 5.9 E12/LRemisol HemeWBC corrected for nucl RBC Auto (Bld) [#/Vol]9.9 E9/LNormal4.0 - 11.0 E9/L Remisol HemeHep Func Panelon 50-64-3522Rlwffqy [Mass/Vol]4.8 g/dLNormal3.3-5.0 [facility] CenterComment on above:Performed By: #### [id number] #### [facility] Laboratory [address], [place] [address]Ifgtxbl/Globulin (S) [Mass conc ratio]1.6Juzfxv0.1-2.2FWVUMedicine Harrison Community HospitalComment on above:Performed By: #### [id number] #### [facility] Laboratory [address], [place] [address]ZEF [Catalytic activity/Vol]66 Int._Unit/QTsczcw33-40NxstrjKettering Health – Soin Medical CenterComment on above:Performed By: #### [id number] #### [facility] Laboratory [address], [place] [address]IEV No additional P-5'-P [Catalytic activity/Vol]16 Int._Unit/L Normal6-46[facility] CenterComment on above:Performed By: #### [id number] #### [facility] [address], [place] [address]TZF [Catalytic activity/Vol]15 Int._Unit/LNormal5-43[facility] CenterComment on above:Performed By: #### [id number] #### [facility] Laboratory [address], [place] [address]Gsrkvqkfh [Mass/Vol]0.3 mg/dLNormal0.0-1.1FWVUMedicine Harrison Community HospitalComment on above:Performed By: #### [id number] #### [facility] Laboratory [address] [place] [address]Gtardufqq.direct [Mass/Vol]0.0 mg/dLNormal0.0-0.4FWVUMedicine Harrison Community HospitalComment on above:Performed By: #### [id number] #### [facility] Laboratory [address] [place] [address]Xeitwuesv.indirect [Mass or moles/Vol]0.3 mg/dLNormal0.1-0.9 [facility] CenterComment on above:Performed By: #### [id number] #### [facility] Laboratory [address] [place] [address]Uaqdgmmf (S) [Mass/Vol]3.0 g/dLNormal1.4-4.0[facility] CenterComment on above:Performed By: #### [id number] #### [facility] Laboratory [address] [place] [address]Pvmldos [Mass/Vol]7.8 g/dLNormal6.0-7.8[facility] CenterComment on above:Performed By: #### [id number] #### [facility] Laboratory [address] [place] [address]Blappb Levelon 65-28-4385Laklqx [Catalytic activity/Vol]26 U/L Wsarjs05-85VdnanjKettering Health – Soin Medical CenterComment on above:Performed By: #### [id number] #### [facility] Laboratory [address] [place] [address]Igoikzi Educationon 73-38-5255Ikvfgrb EducationCardiovascular Hypertension, Adult Hypertension is another name for high blood pressure. High blood pressure forces your heart to workharder to pump blood. This can cause problems [...] at each meal with low-fat (lean) proteins. Low- fat proteins includefish, chicken without skin, eggs, beans, and tofu. [...] your heart to beat faster (aerobic exercise) mostdays of the week. This may include walking, swimming, or biking. ? Get at least 30 minutes of exercise that strengthens your muscles (resistance exercise) at least 3 days a week. This may include lifting weights or doing Pilates. ? Do not smoke or use any products that contain nicotine or tobacco. If you need help quitting, askyour doctor. ? Check your blood pressure at home as told by your doctor. ? Keep all follow-up visits. Medicines ? Take idsa-lhu-tmcwdsh and prescription medicines only as told by [...] blood. ? For m (more content not included)...NormalKettering Health – Soin Medical CenterRAD - Preliminary Cat Scan Reporton [id number] - Preliminary Cat Scan Report [id number]#1.00TIFFNormalThe MetroHealth SystemEROLOGYOrdered By: Amanda Siegel on 76-30-1422Woao HCG ( test) QlNegative (09/28/23 6:59 PM)[facility] Man SeroUA with Cult Rflxon 18-89-0814Bdxcekfxc Ql (U)NegativeNormalNegativeKettering Health – Soin Medical CenterComment on above:Performed By: #### [id number] ####[facility] Yfabghibvz056 [address] AveNnew milford hospital, [id number] (U)ClearNormalClearKettering Health – Soin Medical CenterComment on above:Performed By: #### [id number] ####[facility] Jnibikqldy845 [address] Ver[address] AveNnew milford hospital, SO[address]Ohavq (U)ColorlessAbnormalYellowKettering Health – Soin Medical CenterComment on above:Result Comment: Microscopic readings are only performed on those samples that meet specific criteria set forth by [facility].Performed By: #### [id number] ####[facility] Nsgubydfsz566 Pal[address] Verde AveNornyc health + hospitalsk, [place]Afknfcm Ql (U)Negative NormalNegSelect Medical OhioHealth Rehabilitation HospitalComment on above:Performed By: #### [id number] ####[facility] Uknrfzzpir497 Pal[address] AveNnew milford hospital, [place] [address]Apppztmrxc Auto test strip (U) [Mass/Vol]NegativeNormalNegSelect Medical OhioHealth Rehabilitation HospitalComment on above:Performed By: #### [id number] ####[facility] Nytotehzsr577 Pal[address] Ver[address] AveNnew milford hospital, AM[address]Yolkzoe Auto test strip Ql (U)NegativeNormalNegativeKettering Health – Soin Medical CenterComment on above: Performed By: #### [id number] ####[facility] [address]Leukocyte esterase Auto test strip Ql (U)Negative NormalNegativeKettering Health – Soin Medical CenterComment on above:Performed By: #### [id number] ####[address] [address]Vzrgwlp Auto test strip Ql (U)NegativeNormalNegativeKettering Health – Soin Medical CenterComment on above:Performed By: #### [id number] ####[address]pH (U)7.0 [pH]Invalid Interpretation Code5.0-9.0[facility] Medical CenterComment on above:Performed By: #### [id number] ####[address]Protein Ql (U)NegativeNormalNegativeKettering Health – Soin Medical CenterComment on above:Performed By: #### [id number] ####[address]Specific gravity (U) [Rel density]1.003Invalid Interpretation Code1.005-1.030[facility] Comment on above:Performed By: #### [id number] ####[address]Urobilinogen (U) [Mass/Vol]Negative NormalNegativeKettering Health – Soin Medical CenterComment on above:Performed By: #### [id number] ####[address] [address]Xzrw of Urine collection methodClean CatchSouthern Ohio Medical Center Comment on above:Performed By: #### [id number] ####[address] [place]OUTYSMGRVTHgpmvrd By: SYSTEM SYSTEM on 26-94-3334Xayppqiyu Ql (U)NegativeNormalNegativemg/dLFTMC UA Auto SSClarity (U) Clear (09/28/23 7:35 PM)NormalClearFTMC UA Auto SSColor (U)Colorless 1 *ABN* (09/28/23 7:35 PM)Invalid Interpretation CodeYellowFT UA Auto SSComment on above:Interpretive Data: Microscopic readings are only performed on those samples that meet specific criteria set forth by [facility].Glucose Ql (U)NegativeNormalNegativemg/dLFT UA Auto SSHemoglobin Auto test strip (U) [Mass/Vol]NegativeNormalNegativemg/dLGRIFFIN [facility] UA Auto SSKetones Auto test strip Ql (U)NegativeNormalNegativemg/dLFT UA Auto SSLeukocyte esterase Auto test strip Ql (U)NegativeNormalNegativeLeu/uLFT UA Auto SS Nitrite Auto test strip Ql (U)NegativeNormalNegativemg/dLGRIFFIN [facility]ORIAL [facility] UA Auto SSpH (U) 7.0 *NA* (09/28/23 7:35 PM)Invalid Interpretation Code5.0 - 9.0[facility] UA Auto SSProtein Ql (U)NegativeNormalNegativemg/dLGRIFFIN MEMORIAL [facility] UA Auto SSSpecific gravity (U) [Rel density] 1.003 *NA* (09/28/23 7:35 PM)Invalid Interpretation Code1.005 - 1.030[facility] UA Auto SS Urobilinogen (U) [Mass/Vol]NegativeNormalNegativemg/dLGRIFFIN MEMORIAL [facility] UA Auto SSURINALYSIS Ordered By: Bijan Miramontes on 33-15-1920LM Spec DescClean Catch (09/28/23 7:35 PM)NormalGRIFFIN [facility]ORIAL [facility] UA Auto SS eGFRon 07-75-7068hUYU41 mL/min/1.73 j4Skyvpy>=59AlecUPMC Western MarylandComment on above:Order Comment: Order added by Discern Expert.Performed By: #### [id number] #### [facility] [address], [place] [address]Vjyzybppxt Visit Summaryon 73-56-9686Inbkfwphwf Visit Summary JUSTICE, SANNA Jaylan :1985 Visit Date:08/03/2023 Ambulatory Visit Instructions Your Diagnosis Antiphospholipid syndrome BMI 38.0-38.9,adult Class 2 severe obesity due to excess calories with serious comorbidity and body mass index (BMI) of38.0 to 38.9 in adult Gestational diabetes H/O: CVA Pollen allergies History of gestational diabetes Your Care Team Attending Physician - Penelope CASAS DO, FAAFP Primary Care Physician - Penelope CASAS DO, FAAFP This Is Your Medications List Contact prescribing physician if questions or concerns enoxaparin (Lovenox 40 mg/0.4 mL Injection) ergocalciferol (Vitamin D) fluticasone nasal (Flonase 0.05 mg/inh Weldon) metformin (MetFORMIN (Eqv-Glucophage XR) 500 mg oral [...] PED When: In 4 months Where: [address], [place] [address]- You Need to Complete the [...] Unchanged fluticasone nasal (Flonase 0.05 mg/ inh Weldon) 2 Sprays Nasal Inhalation Every day each [...] ? Walking a mile (more content not included)...[facility] Medicine Office/Clinic Noteon 60-96-5218Bcdojb Medicine Office/Clinic NoteChief Complaint Wants to discuss labs she had [...] medical support in addressing this problem. Your BMIand weight management will be followed at subsequent visits. 3. Class 2 severe obesity due to excess calories with serious comorbidity and body mass index (BMI)of 38.0 to 38.9 in adult (E66.01: Morbid [...] comfortable with plan. PNMV Ordered: A1c POC 74132 Total time spent preparing the chart, conducting [...] FAAFP, FAM, PED In [address], [place] [address]- Additional Instructions: Patient Education Exercising to Lose Weight Problem Lis (more content not included)...[facility] Comment on above:Result Comment: Electronically Signed By: Penelope CASAS DO, FAAFP\.br\Date and Time Signed: 08/03/23 12:19 EDTPatient Educationon 08-03-2023 Patient EducationPhysical Medicine and Rehabilitation Exercising to Lose Weight Getting regular [...] types of activities aresafe for you. Nutrition ? Make changes to your diet as told by your health care provider or diet and sustainable agriculture specialist (dietitian). This may include: ? Eating [...] goals. Your health care provider can help youmake an exercise plan that works for you. [...] as helpful as long, structured periods of exercise.If you have trouble finding time to exercise, [...] regular exercise is e (more content not included)...[facility] CenterPatient Educationon 50-58-1187Evdcrmv EducationEndocrinology Blood Glucose Monitoring, Adult Monitoring your blood [...] You must use the strips that came withyour meter. ? A needle to prick your [...] meter by following in (more content not included)...NormalFisher [facility] Midtown CampusLab Reportson 81-72-1077Joj Reports [id number]#1.00TIFFNoNewark HospitalConsultation Noteon 01-81-3583Hznkfrbasycv Note [id number]#1.00TIFACMC Healthcare System GlenbeighAmbulatory Visit Summaryon 58-30-2875Fzywbhwuse Visit Summary SANNA RENDON :1985 Visit Date:05/25/2023 Ambulatory Visit Instructions Your Diagnosis BMI 37.0-37.9, adult Other obesity Morbid obesity Your Care Team Attending Physician - KAPLE DO Penelope MAS Primary Care Physician - Penelope CASAS DO, [...] EDT With: Penelope CASAS DO, FAAFP Where: [facility] Primary CareNoNewark Hospital Family Medicine Office/Clinic Noteon 69-29-1792Mhxdub Medicine Office/Clinic NoteChief Complaint States she is still having the [...] Benadryl. 2. Dyshidrotic eczema (L30.1: Dyshidrosis [pompholyx]) Nkrn-kng-zedybyo hydrocortisone cream 1% or 2.5% as directed. [...] medical support in addressing this problem. Your BMIand weight management will be followed at subsequent [...] Penelope CASAS DO, FAAFP, CHRIS, PED In 2 months [address] [facility] [address] [place] [id number]- Additional Instructions: Patient Education Eustachian Tube Dysfunction Dyshidrotic Eczema Allergies, Tadeo (more content not included)...[facility] Comment on above:Result Comment: Electronically Signed By: Penelope CASAS DO, FAAFP\.br\Date and Time Signed: 05/25/23 12:02 ESTPatient Educationon 05-25-2023 Patient EducationENT Eustachian Tube Dysfunction Eustachian tube dysfunction refers [...] ears completely after. General instructions ? Take pipm-wjp-uzybwof and prescription medicines only as told by your health care provider. ? Use techniques to help pop your ears as recommended by your health care provider. These may include: ? Chewing gum. ? Yawning. ? Frequent, forceful swallowing. ? Closing your mouth, holding your nose closed, and gently blowing as if you are trying to blow airout of your nose. ? Keep all follow-up [...] inhaled irritants, or abnormal growths in the noseor throat. ? Symptoms may include ear pain or fullness, hearing loss, or ringing in the ears. ? Mild cases are treated with techniques to unblock the ears, such as yawning or chewing gum. ? More severe cases are treated w (more content not included)...NormalKettering Health – Soin Medical CenterC Urineon 56-99-6277Ijyejwel identified Cx Nom (U) Microbiology PROCEDURE: Urine [...] Locations R1: This test was performed at: [facility], [address] [place] [address], [id number] [place] [address], MsmeqoVyjgblNewark HospitalComment on above:Performed By: #### [id number] ####[address] [address]Vyddakx for Treatmenton 44-74-1489Uqdgksh for Treatment [id number]#1.00TIFFNoNewark HospitalUrinalysison 27-98-1929Pmcyvxdj LM Ql (Urine sed)TRACENormalTraceKettering Health – Soin Medical CenterComment on above:Performed By: #### [id number] ####[address] [address]Vtjvoiron Ql (U) NegativeNormalNegativeKettering Health – Soin Medical CenterComment on above:Performed By: #### [id number] ####[address] [address]Mgwktna (U)CLOUDYAbnormalClearFisher [facility] Maryland Medical Center Midtown CampusComment on above:Performed By: #### [id number] ####[place] [address] [address]Jlpaj (U)YELLOWNormalYellowKettering Health – Soin Medical CenterComment on above:Performed By: #### [id number] ####[address] [address]Zeggyavgle cells.squamous LM.HPF (Urine sed) [#/Area]/[HPF]Normal0-2Fisher [facility] Midtown CampusComment on above:Performed By: #### [id number] ####[place] [address] [address]Xgwplex Test strip (U) [Mass/Vol]NegativeNormal NegativeKettering Health – Soin Medical CenterComment on above:Performed By: #### [id number] ####[address] [address] Hemoglobin Ql (U)NegativeNormalNegativeKettering Health – Soin Medical CenterComment on above:Performed By: #### [id number] ####[address] [address]Xfukkcx (U) [Mass/Vol]NegativeNormalNegativeKettering Health – Soin Medical CenterComment on above:Performed By: #### [id number] ####[address] [address] [place].plasma/[place].RBC (Bld) [Mass ratio]4-7Pzjpml6-7Knyves [facility] Midtown CampusComment on above:Performed By: #### [id number] ####[place] [address] [address]Jlasryh Ql (U)NegativeNormal NegativeKettering Health – Soin Medical CenterComment on above:Performed By: #### [id number] ####[address] [address]kN (U)6.0 [pH]Invalid Interpretation Code5.0-9.0[facility] Medical CenterComment on above:Performed By: #### [id number] ####[address] [place] [address]Jnfybet (U) [Mass/Vol]NegativeNormal NegativeKettering Health – Soin Medical CenterComment on above:Performed By: #### [id number] ####[address] [address] Specific gravity (U) [Rel density]<=1.005Invalid Interpretation Code1.005-1.030 [facility] Medical CenterComment on above:Performed By: #### [id number] ####[address] [address]Aggm of Urine collection methodClean CatchNormalKettering Health – Soin Medical CenterComment on above:Performed By: #### [id number] ####[address] [address]Bcswzzipxhzh Qn (U)0.2 {Nicole'U}/dLNormal0.0-1.0 [facility] CenterComment on above:Performed By: #### [id number] ####[address] [address]VBN Auto Ql (U)TRACEAbnormalNegativeKettering Health – Soin Medical CenterComment on above: Performed By: #### [id number] ####[address] [address]PAK LM.HPF (Urine sed) [#/Area]5-5Vrrgsi2-0Jmhhbe [facility] Midtown CampusComment on above:Performed By: #### [id number] ####[address] [address]Bwxphnlkvh Visit Summaryon 64-96-0065Qgelamihst Visit Summary JUSTICECAROLA COHENVENICE Guzman :1985 Visit Date:04/27/2023 Ambulatory Visit Instructions Your [...] EST With: Penelope CASAS DO, FAAFP Where: [facility] CareSouthern [facility] CHEMISTRYOrdered By: SYSTEM SYSTEM on 28-02-6857JDB Qn4.04 m[IU]/LNormal0.34 - 5.60 mcIU/mLRemisol ChemFamily Medicine Office/Clinic Noteon 06-67-4511Xfdlnw Medicine Office/Clinic NoteChief Complaint Since last Sunday has been having joint pain with burning sensation and has been having diarrheawith stomach pain. States her kids are sick. [...] feeding. No loss of taste nor smell. [id number] while taking Glucophage XR 500 mg p.o. [...] having difficulty affording your medications? yes and noissues Do you have any of the following symptoms? Vision problems? No Sexual dysfunction? No GI-Nausea/committing/bloating? No Lightheadedness? No Paresthesias, Ulcerations or sores? [...] Push fluids and Tylenol and or ibuprofen ucbp-opo-oheqoub as directed. Patient does not appear ill [...] medical support in addressing this problem. Your BMIand weight manag (more content not included)...[facility] CenterComment on above: Result Comment: Electronically Signed By: Penelope CASAS DO, FAAFP\.cedrick\Date and Time Signed: 04/27/23 12:53 ESTPatient Educationon 53-24-1872Thtlgnj Education Endocrinology Diabetes Mellitus and Exercise Exercising [...] Your health care provider or certified master locksmith can help you make a plan for [...] your glucose level is above 100 mg/dL (5.6mmol/L) before you start your exercise. ? Know [...] are going to be exercised. For example, avoidinjecting insulin into: ? Your arms, when you [...] exercise or activity. He or she may needto: ? Make sure that the activity is safe for you. ? Adjust your insulin, other medicines, and food that you eat. ? Drink plenty of water while you exercise. This prevents loss of water (dehydration) and problems caused by a lot of heat in the body (heat stroke). Where to find more information ? [place] [employer]: www.diabetes.org Summary ? Exercising regularly is important for overall health, especially for people who have diabetes mellitus. ? Exercising has many health benefits. It increases muscle strength and bone density and reduces body fat and stress. It also lowers and controls blood glucose. ? Your health care provider or certified master locksmith can help you make an activity plan for the type and frequency of exercise that works for you. ? Work with your health care provider to make sure any new activity is safe for you. Also work withyour health care provider to adjust your insulin, other medicines, and the food you eat. This information is not intended to replace advice given to you by your health care provider. Make sure you discuss any questions you have with your health care provider. Document Revised: 01/12/2020 Document Reviewed: 01/12/2020 [employer] Patient Education ? 2022 [employer] Preventing Hypoglycemia Hypoglycemia occurs when the level of sugar (glucose) in the blood is too low. Hypoglycemia can happen in people who do or do not have diabetes (diabetes (more content not included)...[facility] Medical CenterTSHon 88-62-1851RJE Qn 4.04 m[IU]/LNormal0.34-5.60[facility] CenterComment on above:Performed By: #### [id number] ####[facility] [address] [place], [place] [address]Yetqtcnnps Visit Summaryon 00-87-0965Ggexulzllw Visit Summary SANNA RENDON :1985 Visit Date:02/15/2023 [...] PED When: In 2 months Where: [address] [facility] [place] [address]- You Need to Complete the Following HgbA1c, Blood, Routine collect, 02/15/23, Order for future visit, Lab Collect, Gestational diabetes, Print Label By Order Location Thyroid Stimulating Hormone, Blood, Routine collect, 02/15/23, Order for future visit, Lab Collect,Gestational diabetes, Print Label By Order Location Medications [...] miscarriage Suspected COVID-19 virus infection Vaginal tabitha [facility] Medicine Office/Clinic Noteon 21-06-9952Trayik Medicine Office/Clinic NoteChief Complaint States since Sunday evening her right ear is draining and is a little painful History of Present Illness Manager Psychiatry draining since Sunday evening and a little painful ear better this morning and no drainage.Reports no fever or chills. Ever since delivering [...] pain of ear shake well before using, [facility] 1985, 168, cm, 02/15/23 9:49:00EDT, Height/Length Dosing, 108, kg, 02/15/23 9:49:00 EDT, [...] medical support in addressing this problem. Your BMIand weight management will be followed at subsequent visits. 3. Morbid obesity (E66.01: Morbid (severe) obesity due to excess calories) Diet and exercise 4. Gestational diabetes (O24.419: Gestational diabetes mellitus in , unspecified control) Followed per her account management assistant. She is continuing 500 mg of metformin [...] Contact Information PRAVEEN Johnson (more content not included)...[facility] CenterComment on above:Result Comment: Electronically Signed By: PRAVEEN RESENDEZ FAAFP, Penelope Tony\.cedrick\Date and Time Signed: 02/15/23 10:13 EDTPatient Educationon 02-15-2023 Patient EducationCaregiving Ear Drops, Adult Your doctor has found [...] may alsogive you more instructions. Supplies needed: ? Cotton balls. ? Ear drops. How to put ear drops into your ear 1. Wash your hands for 20 seconds with soap and water. If you cannot use soap and water, use hand can conveyor feeder. 2. Make sure your ears are clean [...] to squeeze the round part of the dropperto do this. 7. Put the drops in your ear as told. Hold the dropper above your ear. Do not let the dropper touchyour ear. The medicine may go in more easily if you pull the flap of your ear up and back while youput the drops in. 8. To make sure [...] your ear. Take out the cotton ball whenthe drops have been soaked up or after 15?30 minutes have passed. 9. If you need to put drops in your other ear, repeat the same steps. Your doctor will tell you if you should put drops in both ears. 10. Wash your hands for 20 seconds with soap and water after using ear drops. If you cannot use soap and water, use hand can conveyor feeder. Follow these instructions at home: ? Use [...] provider. Document Revised: 02/11/2020 Document Reviewed: 02/11/2020 [employer] Patient Education ? 2022 [employer] Infectious Disease Otitis Externa Otitis externa [...] you start to feel better. ? Take lqnl-rzd-imfpqgs and prescription medicines only as told by your doctor. ? Avoid getting water in your ears as told by your doctor. You may be told to avoid swimming or water sports for a few days. ? Keep all follow-up visits. How is this prevented? ? Keep your ears dry. Use the corner o (more content not included)...[facility] Educationon 53-69-0680Vzqfioi Education Immunology Fatigue If you have fatigue, [...] these instructions at home: Medicines ? Take drgj-oih-qigitek and prescription medicines only as told by [...] the National Suicide Prevention Lifeline at or 774. This is open 24 hours a day. ? Text the Crisis Text Line at 501063. Summary ? If you have fatigue, you [...] provider. Document Revised: 02/06/2022 Document Reviewed: 02/06/2022 [employer] Patient Education ? 2022 [employer] Urology Urodynamic Testing Urodynamic tests are [...] ? Leaking urine (inco (more content not included)...NormalKettering Health – Soin Medical CenterCHEMISTRYOrdered By: SYSTEM SYSTEM on 48-78-2685Ddmo T4 [Mass/Vol]0.58 ng/dLNormal0.58 - 1.64 ng/dLFTMC RemisolTSH Qn3.35 m[IU]/LNormal0.34 - 5.60 mcIU/mLFTMC RemisolAlbumin [Mass/Vol]4.5 g/dLNormal3.3 - 5.0 gm/dLFTMC Remisol Albumin/Globulin [Mass ratio]1.4 {ratio}Normal1.1 - 2.2FT[facility] RemisolALP [Catalytic activity/Vol]62 [iU]/wVbcouq17 - 98 Int._Unit/LFTMC RemisolALT No additional P-5'-P [Catalytic activity/Vol]27 [iU]/dNormal6 - 46 Int._Unit/LFTMC RemisolAnion gap [Moles/Vol]13 mmol/LNormal6 - 16 mEq/LFTMC RemisolAST [Catalytic activity/Vol]21 [iU]/dNormal5 - 43 Int._Unit/LFTMC RemisolBilirubin [Mass/Vol]0.3 mg/dLNormal0.0 - 1.1 mg/dLFTMC RemisolCalcium [Mass/Vol]9.6 mg/dL Normal8.9 - 11.1 mg/dLFTMC RemisolChloride [Moles/Vol]104 mmol/ONsavob360 - 111 mmol/LFTMC RemisolCO2 [Moles/Vol]25 mmol/GNfhlby45 - 31 mmol/LFTMC Remisol Cobalamin (Vitamin B12) [Mass/Vol]211 pg/lBEhadse94 - 1500 pg/mLFTMC Remisol Creatinine [Mass/Vol]0.9 mg/dLNormal0.5 - 1.3 mg/dLFTMC RemisolFerritin [Mass/Vol]38 ng/cKJakhmm75 - 307 ng/mLFTMC RemisolFolate [Mass/Vol]13.5 ng/mL Normal>=6.7ng/mLFTMC RemisolGFR/1.73 sq M.predicted among non-blacks MDRD (S/P/Bld) [Vol rate/Area]85 mL/min/1.73 j0Nfjtal>=59mL/min/1.73 m2FTMC Chem S Globulin (S) [Mass/Vol]3.3 g/dLNormal1.4 - 4.0 gm/dLFTMC RemisolGlucose [Mass/Vol]93 mg/bXNoiwul29 - 199 mg/dLFTMC RemisolIron [Mass/Vol]56 ug/dLNormal 35 - 153 mcg/dLFTMC RemisolIron binding capacity [Mass/Vol]395 ug/dSVbuvjd888 - 400 mcg/dLFTMC RemisolPotassium [Moles/Vol]3.7 mmol/LNormal3.5 - 5.3 mmol/LFTMC RemisolProtein [Mass/Vol]7.8 g/dLNormal6.0 - 7.8 gm/dLFTMC RemisolSodium [Moles/Vol]138 mmol/LQizvpm530 - 145 mmol/LFTMC RemisolTransferrin [Mass/Vol]282 mg/aGAuvxme196 - 370 mg/dLFTMC RemisolUrea nitrogen [Mass/Vol]11 mg/dLNormal5 - 21 mg/dLFTMC RemisolUrea nitrogen/Creatinine [Mass ratio]12 mg/kwZheyob19 - 20 [facility] RemisolHEMATOLOGYOrdered By: SYSTEM SYSTEM on 04-97-0439Zcytomuch/100 WBC (Bld)0.6 %Normal0.0 - 2.0 %[facility] HemeAutoSSBasophils/Leukocytes Auto (Bld) [Pure # fraction]0.0 E9/LNormal0.0 - 0.2 E9/LFTMC HemeAutoSSEosinophils/100 WBC (Bld) 1.1 %Normal0.0 - 8.0 %[facility] HemeAutoSSEosinophils/Leukocytes Auto (Bld) [Pure # fraction]0.1 E9/LNormal0.0 - 0.5 E9/LFTMC HemeAutoSSLymphocytes/100 WBC (Bld) 42.4 %Qwgeox00.0 - 50.0 %[facility] HemeAutoSSLymphocytes/Leukocytes Auto (Bld) [Pure # fraction]3.4 E9/LNormal1.0 - 4.0 E9/LFTMC HemeAutoSSMonocytes/100 WBC (Bld)8.0 %Normal4.0 - 14.0 %[facility] HemeAutoSSMonocytes/Leukocytes Auto (Bld) [Pure # fraction]0.6 E9/LNormal0.2 - 1.0 E9/LFTMC HemeAutoSSNeutrophils/100 WBC (Bld) 47.9 %Psbqel64.0 - 75.0 %[facility] HemeAutoSSNeutrophils/Leukocytes Auto (Bld) [Pure # fraction]3.8 E9/LNormal2.0 - 7.5 E9/LFTMC HemeAutoSSHEMATOLOGYOrdered By: Trena Castro on 20-12-6289Qrpboygtkpq distribution width (RBC) [Ratio]14.5 % High10.9 - 14.2 %[facility] HemeAutoSSHematocrit (Bld) [Volume fraction]37.4 %Normal 34.0 - 46.0 %[facility] HemeAutoSSHemoglobin (Bld) [Mass/Vol]13.1 g/gJNoghky91.0 - 16.0 gm/dLFTMC HemeAutoSSMCH (RBC) [Entitic mass]30.6 ecArziuv44.0 - 34.0 pgFTMC HemeAutoSSMCHC (RBC) [Mass/Vol]34.9 g/iFQwvagt81.4 - 36.0 gm/dLFTMC HemeAutoSS MCV (RBC) [Entitic vol]87.7 sNSzkhrn26.0 - 100.0 fLFTMC HemeAutoSSPlatelet mean volume (Bld) [Entitic vol]8.2 fLNormal6.4 - 10.8 fLFTMC HemeAutoSSPlatelets (Bld) [#/Vol]334.0 E9/ZRkjgjf482.0 - 500.0 E9/LFTMC HemeAutoSSRBC (Bld) [#/Vol] 4.3 E12/LNormal4.3 - 5.9 E12/LFTMC HemeAutoSSWBC corrected for nucl RBC Auto (Bld) [#/Vol]7.9 E9/LNormal4.0 - 11.0 E9/LFTMC HemeAutoSSCHEMISTRYOrdered By: SYSTEM SYSTEM on 72-92-6579Ryvc T4 [Mass/Vol]0.58 ng/dLNormal0.58 - 1.64 ng/dL [facility] RemisolTSH Qn3.10 m[IU]/LNormal0.34 - 5.60 mcIU/mLFTMC RemisolCHEMISTRY Ordered By: Valeri German on 47-89-6428MvX8i (Bld) [Mass fraction]5.9 %Normal <=5.9%[facility] ChemAutoSSCHEMISTRYOrdered By: SYSTEM SYSTEM on 95-96-9243Aahy T4 [Mass/Vol]0.71 ng/dLNormal0.58 - 1.64 ng/dLFTMC RemisolTSH Qn3.77 m[IU]/LNormal 0.34 - 5.60 mcIU/mLFTMC RemisolCBC AUTO DIFFon 58-56-3698GDAN #0.0 103/ulNormal 0.0-0.1The [facility]itrick HospitalComment on above:Performed By: #### [id number] #### [facility] [address] [place] [address] Dr. Edward Wheelerphils/100 WBC (Bld)0.4 %Normal0.2-2.0[facility] Comment on above:Performed By: #### HIV12 #### [facility] [address] [place] [address] [address] Edward Traore #0.1 103/ulNormal0.0-0.7The [facility]ckitrick HospitalComment on above: Performed By: #### [id number] #### [facility] [address] [place] [address] Dr. Edward Calhounosinophils/100 WBC (Bld)1.3 %Normal0.9-7.0[facility] Comment on above:Performed By: #### HIV12 #### [facility] [address] [place] [address] Dr. Edward Calhounrythrocyte distribution width (RBC) [Ratio]16.6 %Critically high 11.0-15.0The [facility]itrick HospitalComment on above:Performed By: #### HIV12 #### [facility] [address] [place] [address] Dr. Edward GillHematocrit (Bld) [Volume fraction]30.2 %Critically low36.0-48.0 The [facility]itrick HospitalComment on above:Performed By: #### HIV12 #### [facility] [address] [place] [address] Dr. Edward GillHemoglobin (Bld) [Mass/Vol]10.5 g/dLCritically low12.0-16.0The [facility]rick HospitalComment on above:Performed By: #### HIV12 #### [facility] [address] [place] [address] Dr. Edward Ray #0.04 10e3/ulCritically high0.00-0.03[facility] Comment on above:Performed By: #### HIV12 #### [facility] [address] [place] [address] Dr. Edward Ray %0.4 %Normal0.0-0.5The [facility]itrick HospitalComment on above: Performed By: #### HIV12 #### [facility] [address] [place] [address] Dr. Edward Velásquez #3.1 103/ulNormal1.2-3.8The [facility]itrick HospitalComment on above:Performed By: #### HIV12 #### [facility] [address] [place] [address] Dr. Edward Ronmphocytes/100 WBC (Bld)34.2 %Gxippx61.5-60.0The [facility]itrick HospitalComment on above:Performed By: #### HIV12 #### [facility] [address] [place] [address] Dr. Edward Antony DIFF REQNONormalThe Mckitrick HospitalComment on above: Performed By: #### HIV12 #### [facility] [address] [place] [address] Dr. Edward June (RBC) [Entitic mass]30.3 waDvioks20.7-34.0The Reardan HospitalComment on above:Performed By: #### HIV12 #### [facility] [address] [place] [address] Dr. Edward June (RBC) [Mass/Vol]34.8 g/hITpgorm28.9-35.2The [facility]ckitrick HospitalComment on above:Performed By: #### HIV12 #### [facility] [address] [place] [address] Dr. Edward June (RBC) [Entitic vol]87.0 mNUucgwd04.0-99.0The [facility] HospitalComment on above:Performed By: #### HIV12 #### [facility] [address] [place] [address] Dr. Edward Rosas #0.7 103/ulNormal0.3-0.8The [facility]itrick HospitalComment on above:Performed By: #### HIV12 #### [facility] [address] [place] [address] Dr. Edward Ignacioocytes/100 WBC (Bld)7.5 %Normal1.7-12.0The [facility] Comment on above:Performed By: #### HIV12 #### [facility] [address] [place] [address] Dr. Edward Guevara #5.0 103/ulNormal1.4-6.5The [facility]itrick HospitalComment on above:Performed By: #### HIV12 #### [facility] [address] [place] [address] Dr. Edward Moralesutrophils/100 WBC (Bld)56.2 %Zyxfla61.0-75.0The [facility]itrick HospitalComment on above:Performed By: #### HIV12 #### [facility] [address] [place] [address] Dr. Edward Serranolet mean volume (Bld) [Entitic vol]9.8 fLNormal9.5-13.5The [facility]itrick HospitalComment on above:Performed By: #### HIV12 #### [facility] [address] [place] [address] Dr. Edward GillPLT238 103/zjAlkgsg053-718Fkl [facility] HospitalComment on above: Performed By: #### HIV12 #### [facility] [address] [place] [address] Dr. Edward GillRBC3.47 106/ulCritically low4.20-5.40The [facility] HospitalComment on above:Performed By: #### HIV12 #### [facility] [address] [place] [address] Dr. Edward GillWBC9.0 103/ulNormal4.0-11.0The [facility] HospitalComment on above: Performed By: #### HIV12 #### [facility] [address] [place] [address] Dr. Edward Jacinto SCREENon 25-98-8800TADQJ SCREENNegativeNorwalk Memorial HospitalCommclaren bay region on above:Performed By: #### FETSCRN #### [facility] [address] [place] [address] Dr. Edward GillDIRECT COOMBSon [id number] COOMBSNegativeNorwalk Memorial HospitalComment on above:Performed By: #### DIRCMB #### [facility] [address] [place] [address] Dr. Edward GillPOINT OF CARE GLUCOSEon 78-80-4826Ugtncfs [Mass/Vol]117 mg/dL Critically xszs43-898Ljo [facility] HospitalComment on above:Performed By: #### POCGLUC ####[facility] [address] [address]Dr. Edward Das AND SCREENon 66-68-1812DLZB AND SCREENNegativeNormalThe [facility] HospitalComment on above:Performed By: #### TNS #### [facility] [address] [place] [address] Dr. Edward AlfaroC AUTO DIFFon 49-17-1555NEIV #0.0 103/ulNormal0.0-0.1The [facility] HospitalComment on above:Performed By: #### HIV12 #### [facility] [address] [place] [address] Dr. Edward GillBasophils/100 WBC (Bld)0.2 %Normal0.2-2.0The [facility] Comment on above:Performed By: #### HIV12 #### [facility] [address] [place] [address] Dr. Leon ChangEO #0.0 103/ulNormal0.0-0.7The [facility] HospitalComment on above: Performed By: #### HIV12 #### [facility] [address] [place] [address] Dr. Edward Calhounosinophils/100 WBC (Bld)0.5 %Critically low0.9-7.0The [facility] on above:Performed By: #### HIV12 #### [facility] [address] [place] [address] Dr. Edward Calhounrythrocyte distribution width (RBC) [Ratio]16.1 %Critically high 11.0-15.0[facility] Hospitalment on above:Performed By: #### HIV12 #### [facility] [address] [place] [address] Dr. Edward GillHematocrit (Bld) [Volume fraction]32.1 %Critically low36.0-48.0 The [facility] HospitalComment on above:Performed By: #### HIV12 #### [facility] [address] [place] [address] Dr. Edward GillHemoglobin (Bld) [Mass/Vol]11.7 g/dLCritically low12.0-16.0The Piyush HospitalComment on above:Performed By: #### HIV12 #### [facility] [address] [address] [address] Edward Ray #0.04 10e3/ulCritically high0.00-0.03The [facility] Comment on above:Performed By: #### HIV12 #### [facility] [address] [address] [address] Edward Ray %0.5 %Normal0.0-0.5The [facility] HospitalComment on above: Performed By: #### HIV12 #### [facility] [address] [address] [address] Edward Velásquez #2.4 103/ulNormal1.2-3.8The [facility] HospitalComment on above:Performed By: #### HIV12 #### [facility] [address] [place] [address] Dr. Edward Alvarezhocytes/100 WBC (Bld)27.2 %Lcoogo98.5-60.0The [facility] HospitalComment on above:Performed By: #### HIV12 #### [facility] [address] [address] [address] Edward SimmonsUAL DIFF REQNONormalThe [facility] HospitalComment on above: Performed By: #### HIV12 #### [facility] [address] [place] [address] Dr. Edward June (RBC) [Entitic mass]30.0 czSbdsli65.7-34.0The [facility] HospitalComment on above:Performed By: #### HIV12 #### [facility] [address] [place] [address] Dr. Edward June (RBC) [Mass/Vol]36.4 g/dLCritically high29.9-35.2The [facility] HospitalComment on above:Performed By: #### HIV12 #### [facility] [address] [place] [address] Dr. Edward June (RBC) [Entitic vol]82.3 hKVbpjsi56.0-99.0The [facility] HospitalComment on above:Performed By: #### HIV12 #### [facility] [address] [place] [address] Dr. Edward Rosas #0.7 103/ulNormal0.3-0.8The [facility] HospitalComment on above:Performed By: #### HIV12 #### [facility] [address] [place] [address] Dr. Edward Ignacioocytes/100 WBC (Bld)7.7 %Normal1.7-12.0The [facility] Comment on above:Performed By: #### HIV12 #### [facility] [address] [place] [address] Dr. Edward Guevara #5.5 103/ulNormal1.4-6.5The [facility] HospitalComment on above:Performed By: #### HIV12 #### [facility] [address] [place] [address] Dr. Edward Moralesutrophils/100 WBC (Bld)63.9 %Oaecip24.0-75.0The [facility] HospitalComment on above:Performed By: #### HIV12 #### [facility] [address] [place] [address] Dr. Edward Medellin mean volume (Bld) [Entitic vol]10.0 fLNormal9.5-13.5The [facility] HospitalComment on above:Performed By: #### HIV12 #### [facility] [address] [place] [address] Dr. Edward GillPLT274 103/qwFuxpiq705-109Cvs [facility] HospitalComment on above: Performed By: #### HIV12 #### [facility] [address] [place] [address] Dr. Edward TorresC3.90 106/ulCritically low4.20-5.40The [facility] HospitalComment on above:Performed By: #### HIV12 #### [facility] [address] [place] [address] Dr. Edward GillWBC8.7 103/ulNormal4.0-11.0The [facility] HospitalComment on above: Performed By: #### HIV12 #### [facility] [address] [address] [address] Edward GillCovid-19 PCR ([facility])on 87-70-1785DMOE-CoV-2 (COVID-19) RNA LELO+probe Ql (Unsp spec)Not detectedNormalNOT DETECTEDThe [facility] Comment on above:Result Comment: When diagnostic testing is negative, the [...] for this test is supported by the Back Grinder of Health and Human Service's declaration that circumstances exist to justify the emergency use of in vitro diagnostics for the detection and/or diagnosis of the virus that causes COVID-19. This EUA will remain in effect for the duration of the COVID-19 declaration justifying emergency of IVDs, unless it is terminated or revoked by the FDA (after which the test may no longer be used).Performed By: #### HIV12 #### [facility] [address] [address] [address] Edward GillDRUG SCREEN RAPID (URINE)on 34-23-0219QCXNnygixntUqdgfiRHSXTRHQ The [facility] HospitalComment on above:Performed By: #### DRUGRPD ####[facility] [address] [address]Dr. Edward GillBAR NegativeNormalNEGATIVESumma HealthComment on above:Performed By: #### DRUGRPD ####[facility] [address] [address]Dr. Edward GillBUPNegativeNormalNEGATIVESumma HealthComment on above:Performed By: #### DRUGRPD ####[facility] I[address] [place], [place] [address]Dr. Edward GillBZONegativeNormalNEGATIVEGalion Community Hospital HospitalComment on above:Performed By: #### DRUGRPD ####[facility] U[address] [place], [place] [address]Dr. Edward ChangCOCNegative NormalNEGATIVEGalion Community Hospital HospitalComment on above:Performed By: #### DRUGRPD ####[facility] Jeelbcrvhe[address] [place], [place] [address]Dr. Edward GillCUT-OFFSSEE [facility]lower HospitalComment on above:Result Comment: AMP (Amphetamine): 500ng/mL, BAR (Barbituates): 200 ng/mL, BZO (Benzodiazepines): 150 ng/mL, BUP (Buprenorphine): 10 ng/mL, INDIA (Cocaine): 150 ng/mL, mAMP (Methamphetamine): 500 ng/mL, MTD (Methadone): 200 ng/mL, OPI (Opiates): 100 ng/mL, OXY (Oxycodone): 100 ng/mL, PCP (Phencyclidine): 25 ng/mL, PPX (Propoxyphene): 300 ng/mL, THC (Cannabinoids): 50 ng/mL, TCA (Trycyclic Antidepressants): 300 ng/mLPerformed By: #### DRUGRPD ####[facility] Anvce[address] [place], [place] [address]Dr. Edward GillDRUG CUT HEADERDRUG CLASS TEST SYSTEM CUT-OFF CONCENTRATIONS ARE FOLLOWS:NormalThe Reardan HospitalComment on above:Performed By: #### DRUGRPD ####[facility] [address] [place], [place] [address]Dr. Edward GillmAMP NegativeNormalNEGATIVEGalion Community Hospital HospitalComment on above:Performed By: #### DRUGRPD ####[facility] Umuajuusdt[address] [place], [place] [address]Dr. Edward GillMTDNegativeNormalNEGATIVESumma HealthComment on above:Performed By: #### DRUGRPD ####[facility] Blas[address] [place], [place] [address]Dr. Yilan ChangOPINegativeNormalNEGATIVEGalion Community Hospital HospitalComment on above:Performed By: #### DRUGRPD ####[facility] [address] [address]Dr. Edward ChangOXYNegative NormalNEGATIVEGalion Community Hospital HospitalComment on above:Performed By: #### DRUGRPD ####[facility] Bo[address]pe[address] [place], [place] [address]Dr. Edward GillPCPNegativeNormalNEGATIVEGalion Community Hospital HospitalComment on above: Performed By: #### DRUGRPD ####[facility] Aod[address] [place], [place] [address]Dr. Edward ChangPPXNegativeNormalNEGATIVESumma HealthComment on above:Performed By: #### DRUGRPD ####[facility] Qihdk[address] [place], [place] [address]Dr. Edward GillTCANegative NormalNEGATIVESumma HealthComment on above:Performed By: #### DRUGRPD ####[facility] Ces[address] [place], [place] [address]Dr. Edward GillTHCNegativeNormalNEGATIVESumma HealthComment on above: Performed By: #### DRUGRPD ####[facility] Xfalefeoey[address] [place], [place] [address]Dr. Edward GillUS PREG BIOPHY W NON STRESSon [id number] PREG BIOPHY W NON STRESSEXAMINATION: US PREG BIOPHY W NON STRESS HISTORY: [...] Electronically authenticated by: HUMERA KIM Date: 2022-05-06 19:05[facility] PREG BIOPHY W NON STRESSon [id number] PREG BIOPHY W NON STRESSEXAMINATION: US PREG BIOPHY W NON STRESS HISTORY: [...] Electronically authenticated by: ANGIE GALDAMEZ Date: 2022-05-01 16:16[facility] B STREP CULTUREon 04-23-2022. agalactiae Ag Ql (Unsp spec)Isolate 1 Streptococcus agalactiae Heavy growth of ORGANISM 1 Streptococcus agalactiae ANTIBIOTIC M.I.C RX STATUS Ampicillin <=0.25 S F Cefotaxime <=0.12 S F Ceftriaxone <=0.12 S F Clindamycin <=0.25 R F Erythromycin >=8 R F Inducible Clindamycin Resistance POS F Levofloxacin =0.5 S F Linezolid <=2 S F Tetracycline >=16 R F Vancomycin =0.5 S FNOhioHealth Grant Medical CenterComment on above:Performed By: #### GBSCX ####[facility] Qvrwitux[address] [place], [place] [address]Dr. Edward GillUS PREG BIOPHY W NON STRESSon [id number] PREG BIOPHY W NON STRESSEXAMINATION: US PREG BIOPHY W NON STRESS HISTORY: [...] Electronically authenticated by: HUMERA KIM Date: 2022-04-17 17:08[facility] PREG GROWTHon [id number] PREG GROWTHEXAMINATION: US PREG GROWTH HISTORY: Gestational diabetes mellitus [...] Electronically authenticated by: HUMERA KIM Date: 2022-04-17 16:49[facility] HospitalUS PREG BIOPHY W NON STRESSon [id number] PREG BIOPHY W NON STRESSEXAMINATION: US PREG BIOPHY W NON STRESS HISTORY: [...] Electronically authenticated by: HUMERA KIM Date: 2022-04-12 08:56[facility] HospitalGLUCOSE, BLOOD (POC)on 37-75-3484Epwwmkj [Mass/Vol]106 mg/dL Tyuarhsq84 - 99 mg/dLTriHealth PREG BIOPHY W NON STRESSon [id number] PREG BIOPHY W NON STRESSEXAMINATION: US PREG BIOPHY W NON STRESS HISTORY: [...] Electronically authenticated by: HUMERA KIM Date: 2022-04-01 16:08[facility] PREG BIOPHY W NON STRESSon [id number] PREG BIOPHY W NON STRESSEXAMINATION: US PREG BIOPHY W NON STRESS HISTORY: [...] Electronically authenticated by: HUMERA KIM Date: 2022-03-27 08:54[facility] PREG GROWTHon [id number] PREG GROWTHEXAMINATION: US PREG GROWTH HISTORY: Maternal history of [...] Electronically authenticated by: HUMERA KIM Date: 2022-03-17 06:04[facility] HospitalTSHon 32-49-5229BIO9.586 uIU/mLNormal0.358-3.740[facility] on above:Performed By: #### HIV12 #### [facility] [address] [address] [address] Edward GillTYPE AND SCREENon 92-58-0837WPHF AND SCREENNegativeNorwalk Memorial HospitalCommclaren bay region on above:Performed By: #### TNS #### [facility] [address] [address] [address] Edward Emanuel ACOG PANEL 2: 30 to 65on 02-21-2022..NormalThe [facility] on above:Result Comment: Performed at: WBPerformed By: #### [id number] ####[facility] [address]ts[address] [address]Dr. Edward Koenig Gdln ACOG Trchgli85-43JkaysbJdoKettering Health Main Campus on above:Performed By: #### [id number] ####[facility] Docbutbgyn[address] [address]DrLazara GillDIAGNOSIS:CommentPremier Health on above:Result Comment: NEGATIVE FOR INTRAEPITHELIAL LESION OR MALIGNANCY. Performed at: WBPerformed By: #### [id number] ####[facility] [address] [address]Dr. Edward GillHPV AptimaNegativeNormal NegativeWayne Hospital on above:Result Comment: This nucleic acid amplification test detects fourteen high-risk HPV types (16,18,31,33,35,39,45,51,52,56,58,59,66,68) without differentiation. Performed at: =GPerformed By: #### [id number] ####[facility] [address] [address]Dr. Edward GillMethodology:CommentPremier Health on above:Result Comment: This liquid based ThinPrep(R) pap test was screened with the use of an image guided system. Performed at: WBPerformed By: #### [id number] ####[facility] Z[address]akaujyzn[address] [place], [place] [address]Dr. Edward GillNote:CommentPremier Health on above:Result Comment: The Pap smear is a screening test designed to aid in the detection of premalignant and malignant conditions of the uterine cervix. It is not a diagnostic procedure and should not be used as the sole means of detecting cervical cancer. Both false-positive and false-negative reports do occur. . Performed at: WBPerformed By: #### [id number] ####[address] [place] [address]Dr. Edward GillPerformed by:CommentPremier Health on above:Result Comment: Zenaida Diop, Biological Science Aide (ASCP) Performed at: WBPerformed By: #### [id number] ####[address] [place] [address]Dr. Edward GillSpecimen adequacy:Comment NormalWayne Hospital on above:Result Comment: Satisfactory for evaluation. No endocervical component is identified. Performed at: WBPerformed By: #### [id number] ####[address] [place] [address]Dr. Edward GillCHLAMYDIA/GONOCOCCUS LELO (SWAB/URINE/PAPon 80-11-4252Oogfimgkt trachomatis, NAANegativeNormalNegativeThe [facility] HospitalCommclaren bay region on above:Performed By: #### CT/NGNA ####[facility] Ipdnw[address]msf[address] [place], [place] [address]Dr. Edward Gill Neisseria gonorrhoeae, NAANegativeNormalNegativeThe [facility] HospitalComment on above:Performed By: #### CT/NGNA ####[facility] Mfoaonykfl[address] [place], [place] [address]Dr. Edward GillVAGINITIS/VAGINOSIS DNA PROBEon 02-87-9338Hyggpaf speciesNegativeNormalNegativeSumma HealthCommclaren bay region on above:Performed By: #### VAGINT ####[facility] [address]Dr. Edward GillGardnerella vaginalisNegativeNormal NegativeSumma HealthComment on above:Performed By: #### VAGINT ####[facility] [address] [address]Dr. Edward GillTrichomonas vaginalisNegativeNormalNegativeSumma Health Comment on above:Performed By: #### VAGINT ####[facility] [address]tydw[address] [address]Dr. Edward SepulvedaHon 38-56-2650MMO7.536 uIU/mLNormal0.358-3.740Summa HealthComment on above:Performed By: #### TSH ####[facility] [address] [address]Dr. Edward GillGLUCOSE - 1HRon 31-24-0674Cjqhkur [Mass/Vol]160 mg/dLCritically high 74-106The [facility] HospitalComment on above:Performed By: #### GLU1HR ####[facility] [address] [address]Dr. Edward SepulvedaHon 67-08-1489YEO6.899 uIU/mLNormal0.358-3.740[facility] Comment on above:Performed By: #### HIV12 #### [facility] [address] [address] [address] Edward Garcia, [facility] 46-92-6902Lizzjneqnb byUltSamaritan North Lincoln HospitalComment on above:Performed By: #### AAFPM #### [facility] [place] [address] Control Systems Drafting Officer: Pancho Cano MD [address] [address] Control Systems Drafting Officer: Yosvany ArriagaGalion HospitalComment on above:Result Comment: Results for Estimated Due Date: 05 13 22Performed By: #### AAFPM #### [facility] [address] [place] [address] Control Systems Drafting Officer: Pancho Cano MD [facility] [address] [place] [address] Control Systems Drafting Officer: Zhang Bledsoe MDFaPomerene HospitalComment on above:Performed By: #### AAFPM #### [facility] [address] [place] [address] [employer] Systems Drafting Officer: Pancho Cano MD [address] [address] Control Systems Drafting Officer: Zhang Bledsoe MDGestat Age (exact)15 wks, 2 daysUniversity Hospitals Elyria Medical CenterComment on above:Performed By: #### AAFPM #### [address] [address] Control Systems Drafting Officer: Pancho Cano MD [address] [address] Control Systems Drafting Officer: Zhang Bledsoe MDIns Req Matern [facility] District HospitalComment on above:Performed By: #### AAFPM #### [facility] [address] [address] Control Systems Drafting Officer: Pancho Cano MD [address] [address] Control Systems Drafting Officer: Zhang Bledsoe MDInterpretationScreen NegUniversity Hospitals Elyria Medical CenterComment on above:Result Comment: (NOTE) INTERPRETATION: SCREEN NEGATIVE for open spina bifida Neural Tube Defects (NTD) Negative Pre-Test Post-Test Cutoff Neural Tube Defects Risks 1:1030 1:2690 1:250 Comments: The risk of an open neural tube defect is less than the screening cut-off. This test was developed and its performance characteristics determined by [employer]. It has not been cleared or approved by the [place] Food and Drug Administration. This test was performed in a CLIA certified laboratory and is intended for clinical purposes.Performed By: #### AAFPM #### [facility] [address] [place] [address] [employer] Systems Drafting Officer: Pancho Cano MD [facility] [address] [place] [address] Control Systems Drafting Officer: Osmar Arriagaternal Age at Del36.6 yrUniversity Hospitals Elyria Medical CenterComment on above:Performed By: #### AAFPM #### [facility] [address] [place] [address] [employer] Systems Drafting Officer: Pancho Cano MD [address] [phone] Control Systems Drafting Officer: Osmar Arriagalos [facility] RaceNonblackUniversity Hospitals Elyria Medical CenterComment on above:Performed By: #### AAFPM #### [facility] [address] [place] [address] Control Systems Drafting Officer: Pancho Cano MD [address] [address] Control Systems Drafting Officer: Osmar Arriagaternal Pxwafh695.0 lbs.NormalAvita Health System Bucyrus HospitalComment on above:Performed By: #### AAFPM #### [facility] [address] [place] [address] Control Systems Drafting Officer: Pancho Cano MD [facility] [address] [place] [address] Control Systems Drafting Officer: BAKARI Arriaga for AFP1.52University Hospitals Elyria Medical CenterComment on above:Performed By: #### AAFPM #### [facility] [address] [place] [address] Control Systems Drafting Officer: Pancho Cano MD [facility] [address] [place] [address] Control Systems Drafting Officer: Zhang Bledsoe MDNumber of FetusesSingletonUniversity Hospitals Elyria Medical CenterComment on above:Performed By: #### AAFPM #### [facility] [address] [address] Control Systems Drafting Officer: Pancho Cano MD [address] [address] Control Systems Drafting Officer: Smith Arriagajaylan AFP35 ng/mLNDunlap Memorial HospitalComment on above:Performed By: #### AAFPM #### [address] [address] Control Systems Drafting Officer: Pancho Cano MD [address] [phone] Control Systems Drafting Officer: NIKITA ArriagaSelect Medical Specialty Hospital - [facility], Inc Comment on above:Performed By: #### LAURITAFPM #### [address] [address] Control Systems Drafting Officer: Pancho Cano MD [address] [phone] Control Systems Drafting Officer: NIKITA Arriagaconfluence health hospital, central campusZo NoteUniversity Hospitals Elyria Medical CenterComment on above:Result Comment: (NOTE) Initial sample Performed by [employer], [address] [place] [address] [id number] www.[email or web address], Yayo Moncada MD, PHD, Lab. DirectorPerformed By: #### AAFPM #### [address] [address] Control Systems Drafting Officer: Pancho Cano MD [address] [phone] Control Systems Drafting Officer: Zhang Bledsoe MDAMedStar Good [facility]aritan [facility] 44-68-5784Jwhjlov SmokingOhio Valley Surgical HospitalComment on above:Performed By: #### AAFPM #### [address] [address] Control Systems Drafting Officer: Pancho Cano MD [facility] [address] [place] [address] Control Systems Drafting Officer: SHIVA ArriagaatingUSUniversity Hospitals Elyria Medical Center Comment on above:Performed By: #### AAFPM #### [facility] [address] [place] [address] Control Systems Drafting Officer: Pancho Cano MD [facility] [address] [place] [address] Control Systems Drafting Officer: SHIVA ArriagaiabeticOhioHealth Grove City Methodist Hospital Comment on above:Performed By: #### AAFPM #### [facility] [address] [place] [address] Control Systems Drafting Officer: Pancho Cano MD [facility] [address] [place] [address] Control Systems Drafting Officer: Vangie Arriaga EggINFORMATION NOT PROVIDEDUniversity Hospitals Elyria Medical CenterComment on above:Performed By: #### AAFPM #### [facility] [address] [place] [address] Control Systems Drafting Officer: Pancho Cano MD [facility] [address] [place] [address] Control Systems Drafting Officer: Zhang Bledsoe MDEstimated Due [id number] Hospitals Elyria Medical CenterComment on above:Performed By: #### AAFPM #### [facility] [address] [place] [address] Control Systems Drafting Officer: Pancho Cano MD [facility] [address] [place] [address] Control Systems Drafting Officer: Zhang Bledsoe MDFabernabely HistoryNegativeUniversity Hospitals Elyria Medical CenterComment on above:Performed By: #### AAFPM #### [facility] [address] [place] [address] Control Systems Drafting Officer: Pancho Cano MD [facility] [address] [place] [address] Control Systems Drafting Officer: Zhang Bledsoe MDIn [facility] FertalizatINFORMATION NOT PROVIDEDMercy Health St. Vincent Medical CenterComment on above:Performed By: #### AAFPM #### [facility] [address] [place] [address] Control Systems Drafting Officer: Pancho Cano MD [address] [address] Control Systems Drafting Officer: Zhang Bledsoe MDSAINT ALPH[facility] [id number] Hospitals Elyria Medical CenterComment on above:Performed By: #### AAFPM #### [address] [address] Control Systems Drafting Officer: Pancho Cano MD [address] [address] Control Systems Drafting Officer: Osmar Arriagaternal [id number] Hospitals Elyria Medical CenterComment on above:Performed By: #### AAFPM #### [address] [address] Control Systems Drafting Officer: Pancho Cano MD [address] [address] Control Systems Drafting Officer: Osmar Arriagaternal [id number] Hospitals Elyria Medical CenterComment on above:Performed By: #### AAFPM #### [address] [address] Control Systems Drafting Officer: Pancho Cano MD [address] [address] Control Systems Drafting Officer: BAKARI Arriagaformerly [facility], [facility] TwinsOhioHealth Grove City Methodist HospitalComment on above:Performed By: #### AAFPM #### [address] [address] Control Systems Drafting Officer: Pancho Cano MD [address] [place] [address] Control Systems Drafting Officer: GLADYS Arriagaatiallyssa Weight UnitsLBSUniversity Hospitals Elyria Medical CenterComment on above:Performed By: #### AAFPM #### [facility] [address] [place] [address] Control Systems Drafting Officer: Pancho Cano MD [facility] [address] [place] [address] Control Systems Drafting Officer: Darci Arriaga (Maternal)Twin City HospitalComment on above:Performed By: #### AAFPM #### [facility] [address] [place] [address] Control Systems Drafting Officer: Pancho Cano MD [facility] [address] [place] [address] Control Systems Drafting Officer: Nader Arriagat SpecimenINFORMATION NOT [facility] Medical CenterComment on above:Performed By: #### AAFPM #### [facility] [address] [place] [address] Control Systems Drafting Officer: Pancho Cano MD [facility] [address] [place] [address] Control Systems Drafting Officer: Zhang Bledsoe MDValproic/CarbamazepINFORMATION NOT [facility] Medical CenterComment on above:Performed By: #### AAFPM #### [facility] [address] [place] [address] Control Systems Drafting Officer: Pancho Cano MD [facility] [address] [place] [address] Control Systems Drafting Officer: JIMENEZ Arriaga Single Marker Scrn, Maternal, Serumon 04-75-3920XwlEvmlgbClarion HospitalCarrier Study Non-ProMedicaon 02-43-9211SyyKorfkxClarion Hospital MISCELLANEOUS TESTINGon 04-69-7626Gwan Out ReportFWD TO [facility] 5848 [id number] 9819[facility] AVONTest NameNATERA RIVERSIDE WALTER REED HOSPITALMiscellaneouson 23-50-3712Ejzm Out ReportFWD TO [facility] [address] [place], [place] [address]Comment on above:Performed By: #### CMIS #### [facility] [address] [place] [id number] Control Systems Drafting Officer: Shania Choi [facility] Cross HospitalComment on above:Performed By: #### CMIS #### [facility] [employer] [address] [place] [address] [id number] Control Systems Drafting Officer: Pancho Cano MDHEP B SURFACE ANTIGEN SCREENon 88-00-9841WUbQr ScreenNegativeNormalNegativeSumma HealthComment on above:Performed By: #### HIV12 #### [facility] [address] [place] [address] Dr. Edward Dahl C VIRUS AB W/ REFLEX QUANTon [id number] AB<0.1Normal 0.0-0.9The [facility]itrick HospitalComment on above:Performed By: #### HCVPCRR ####[facility] [address] [address]Dr. Edward GillInterpretation:CommentNormalThWadsworth-Rittman HospitalComment on above: Result Comment: Negative Not infected with HCV, unless recent infection is suspected or other evidence exists to indicate HCV infection.Performed By: #### HCVPCRR ####[facility] [address] [address]DrLazara Dominique 1 AND 2 WITH REFLEXon 72-17-7514QEV Screen 4th Generation wRfx Non-ReactiveNormalNon ReactiveSumma HealthComment on above:Result Comment: HIV Negative HIV-1/HIV-2 antibodies and HIV-1 p24 antigen were NOT detected. There is no laboratory evidence of HIV infection.Performed By: #### HIV12 #### [facility] [address] [place] [address] Dr. Edward SolisR QUANTon 08-13-5935Wcahe Plasma Reagin, QuantNon-Reactive NormalNonRea<1:1The [facility]it[facility] HospitalComment on above:Result Comment: Please Note: This test does not meet current guidelines for screening and diagnosis of syphilis. This test is intended for following treatment response in patients being treated for syphilis infection. To screen for syphilis infection, a reflex cascade that includes both RPR and a treponema-specific assay should be utilized, such as Treponema pallidum (Syphilis) Screening [place] (758056) or Rapid Plasma Reagin (RPR) Test With Reflex to Quantitative RPR and Confirmatory Treponema pallidum Antibodies (660290).Performed By: #### RPRQ ####[facility] V[address] [place], [place] [address]Dr. Edward GillRUBELLA AB IGG on 23-18-9768Drrikgn Antibodies, IgG1.02 indexNormalImmune >0.99The [facility]itrick HospitalComment on above:Result Comment: Non-immune <0.90 Equivocal 0.90 - 0.99 Immune >0.99Performed By: #### RUBIGG ####[facility] [address] [place], [place] [address]Dr. Edward Engle AUTO DIFFon 11-25-7327SEZZ # 0.0 103/ulNormal0.0-0.1The [facility]itrick HospitalComment on above:Performed By: #### HIV12 #### [facility] [address] [place] [address] Dr. Edward GillBasophils/100 WBC (Bld)0.3 %Normal0.2-2.0The [facility] Comment on above:Performed By: #### HIV12 #### [facility] [address] [place] [address] Dr. Edward Traore #0.1 103/ulNormal0.0-0.7The [facility]rick HospitalComment on above: Performed By: #### HIV12 #### [facility] [address] [place] [address] Dr. Edward Calhounosinophils/100 WBC (Bld)0.6 %Critically low0.9-7.0The [facility]ita Health Systemment on above:Performed By: #### HIV12 #### [facility] [address] [place] [address] Dr. Edward Calhounrythrocyte distribution width (RBC) [Ratio]14.1 %Cuikef66.0-15.0 The [facility]itrick HospitalComment on above:Performed By: #### HIV12 #### [facility] [address] [place] [address] Dr. Edward GillHematocrit (Bld) [Volume fraction]36.2 %Bhrdua03.0-48.0The [facility] HospitalComment on above:Performed By: #### HIV12 #### [facility] [address] [place] [address] Dr. Edward GillHemoglobin (Bld) [Mass/Vol]12.5 g/pMGbotnq23.0-16.0The [facility] HospitalComment on above:Performed By: #### HIV12 #### [facility] [address] [place] [address] Dr. Edward Ray #0.05 10e3/ulCritically high0.00-0.03The [facility] Comment on above:Performed By: #### HIV12 #### [facility] [address] [place] [address] Dr. Edward Ray %0.4 %Normal0.0-0.5The [facility] HospitalComment on above: Performed By: #### HIV12 #### [facility] [address] [place] [address] Dr. Edward RonMPH #2.7 103/ulNormal1.2-3.8The [facility] HospitalComment on above:Performed By: #### HIV12 #### [facility] [address] [place] [address] Dr. Edward Ronmphocytes/100 WBC (Bld)23.2 %Pjdksy51.5-60.0The [facility] HospitalComment on above:Performed By: #### HIV12 #### [facility] [address] [place] [address] Dr. Edward SimmonsUAL DIFF REQNONormalThe [facility]rick HospitalComment on above: Performed By: #### HIV12 #### [facility] [address] [place] [address] Dr. Edward June (RBC) [Entitic mass]30.6 ocKuldlr65.7-34.0The [facility] HospitalComment on above:Performed By: #### HIV12 #### [facility] [address] [place] [address] Dr. Edward June (RBC) [Mass/Vol]34.5 g/aPEvnhyd49.9-35.2The [facility] HospitalComment on above:Performed By: #### HIV12 #### [facility] [address] [place] [address] Dr. Edward June (RBC) [Entitic vol]88.7 hJTbfwdt82.0-99.0The [facility] HospitalComment on above:Performed By: #### HIV12 #### [facility] [address] [place] [address] Dr. Edward Rosas #0.7 103/ulNormal0.3-0.8The [facility] HospitalComment on above:Performed By: #### HIV12 #### [facility] [address] [place] [address] Dr. Edward Ignacioocytes/100 WBC (Bld)5.8 %Normal1.7-12.0[facility] Comment on above:Performed By: #### HIV12 #### [facility] [address] [place] [address] Dr. Edward Guevara #8.0 103/ulCritically high1.4-6.5The [facility] Comment on above:Performed By: #### HIV12 #### [facility] [address] [place] [address] Dr. Edward Moralesutrophils/100 WBC (Bld)69.7 %Xsadev96.0-75.0The [facility] Systemment on above:Performed By: #### HIV12 #### [facility] [address] [address] [address] Edward GillPlatelet mean volume (Bld) [Entitic vol]9.3 fLCritically low 9.5-13.5The [facility] HospitalCommclaren bay region on above:Performed By: #### HIV12 #### [facility] [address] [place] [address] Dr. Edward GillPLT338 103/tpZodkst084-700Wqp [facility] HospitalCommclaren [facility] region on above: Performed By: #### HIV12 #### [facility] [address] [place] [address] Dr. Edward GillRBC4.08 106/ulCritically low4.20-5.40The [facility] on above:Performed By: #### HIV12 #### [facility] [address] [place] [address] Dr. Edward GillWBC11.4 103/ulCritically high4.0-11.0The [facility] on above:Performed By: #### HIV12 #### [facility] [address] [place] [address] Dr. Edward GillCULTJEYSON URINEon 63-68-4531WYCPGRK URINECulture Observations: LIGHT GROWTH OF MIXED GENITAL MARTHA. NO POTENTIAL PATHOGENS SEEN.NormalThe [facility] on above:Performed By: #### URCX #### [facility] [address] [place] [address] Dr. Edward GillGLYCOHEMOGLOBIN A1Con 93-46-0412RLO RECOMMENDATIONSEE BELOWNormal The [facility] HospitalCommclaren bay region on above:Result Comment: ADA RECOMMENDED LIMIT 4.0 - 6.0 ADA THERAPEUTIC TARGET < 7.0 ACTION SUGGESTED > 7.0Performed By: #### A1C #### [facility] [address] [place] [address] Dr. Edward GillGlucose [Mass/Vol]117 mg/dLNormalThe [facility] on above:Performed By: #### A1C #### [facility] [address] [place], [place] [address] Dr. Edward GillHbA1c (Bld) [Mass fraction]5.7 %Normal4.5-6.2The [facility] Systemment on above:Performed By: #### A1C #### [facility] [address] [place] [address] Dr. Edward Nari BOX TEST PT SEND OUTon [id number] TO REF LAB10/25/2021 NormalThe [facility] HospitalCommclaren [facility] region on above:Performed By: #### HIV12 #### [facility] [address] [place] [address] Dr. Edward SepulvedaHon 65-90-0257QMY2.700 uIU/mLNormal0.358-3.740The [facility] on above:Performed By: #### TSH ####[facility] [address] [address]DrPonce GillTYPE AND SCREEN on 01-48-4451EJNA AND SCREENNegativeNoUniversity Hospitals Conneaut Medical CenterComment on above: Performed By: #### TNS ####[facility] [address] [place], [place] [address]Dr.Edward GillUS PREG TVon [id number] PREG TV EXAMINATION: US PREG TV HISTORY: [...] Electronically authenticated by: HUMERA KIM Date: 2021-09-23 10:27[facility] HospitalPREG QUANT HCGon 58-03-2380JAN EECDN0345 mIU/mLNormalThe [facility] on above:Performed By: #### HIV12 #### [facility] [address], [place] [address] Dr. Edward GillHCG Van Wert County HospitalComment on above: Result Comment: 5-50 0-1 WEEK 40-300 1-2 WEEKS 100-1,000 2-3 WEEKS 500-6,000 3-4 WEEKS 5,000-200,000 1-2 MONTHS 10,000-100,000 2-3 MONTHS 3,000-50,000 2ND TRIMESTER 1,000-50,000 3RD TRIMESTERPerformed By: #### HIV12 #### [facility] [address], [place] [address] Dr. Edward GillCHEMISTRYOrdered By: SYSTEM SYSTEM on 90-02-0715Wnvpk gap [Moles/Vol]15 mmol/LNormal6 - 16 mEq/LFTMC RemisolCalcium [Mass/Vol]9.5 mg/dL Normal8.9 - 11.1 mg/dLFT RemisolChloride [Moles/Vol]102 mmol/CKsjgcz357 - 111 mmol/LFTMC RemisolCO2 [Moles/Vol]22 mmol/CJjtxbw26 - 31 mmol/LFTMC Remisol Creatinine [Mass/Vol]0.9 mg/dLNormal0.5 - 1.3 mg/dLFT RemisolGFR/1.73 sq M.predicted among blacks MDRD (S/P/Bld) [Vol rate/Area]mL/min/1.73 s9Vpoylv >=59mL/min/1.73 m2FT Chem SGFR/1.73 sq M.predicted among non-blacks MDRD (S/P/Bld) [Vol rate/Area]mL/min/1.73 l2Qmbmgo>=59mL/min/1.73 m2[facility] Chem S Glucose [Mass/Vol]85 mg/lFDrruqv66 - 199 mg/dLFT RemisolPotassium [Moles/Vol] 3.9 mmol/LNormal3.5 - 5.3 mmol/LFTMC RemisolSodium [Moles/Vol]135 mmol/LNormal 135 - 145 mmol/LFTMC RemisolUrea nitrogen [Mass/Vol]6 mg/dLNormal5 - 21 mg/dL [facility] RemisolUrea nitrogen/Creatinine [Mass ratio]7 mg/mgLow10 - 20FTMC Remisol HEMATOLOGYOrdered By: Plug.dj SYSTEM on 25-49-2423Ginpzmhde/100 WBC (Bld)0.5 % Normal0.0 - 2.0 %[facility] HemeAutoSSBasophils/Leukocytes Auto (Bld) [Pure # fraction]0.0 E9/LNormal0.0 - 0.2 E9/LFTMC HemeAutoSSEosinophils/100 WBC (Bld)0.6 %Normal0.0 - 8.0 %[facility] HemeAutoSSEosinophils/Leukocytes Auto (Bld) [Pure # fraction]0.1 E9/LNormal0.0 - 0.5 E9/LFTMC HemeAutoSSLymphocytes/100 WBC (Bld) 36.8 %Fdwmkd88.0 - 50.0 %[facility] HemeAutoSSLymphocytes/Leukocytes Auto (Bld) [Pure # fraction]2.9 E9/LNormal1.0 - 4.0 E9/LFTMC HemeAutoSSMonocytes/100 WBC (Bld)8.7 %Normal4.0 - 14.0 %[facility] HemeAutoSSMonocytes/Leukocytes Auto (Bld) [Pure # fraction]0.7 E9/LNormal0.2 - 1.0 E9/LFTMC HemeAutoSSNeutrophils/100 WBC (Bld) 53.4 %Cnytsu08.0 - 75.0 %[facility] HemeAutoSSNeutrophils/Leukocytes Auto (Bld) [Pure # fraction]4.2 E9/LNormal2.0 - 7.5 E9/LFTMC HemeAutoSSHEMATOLOGYOrdered By: Isha Yates on 32-19-5116Cltumkrythz distribution width (RBC) [Ratio]14.6 %High10.9 - 14.2 %[facility] HemeAutoSSHematocrit (Bld) [Volume fraction]36.4 %Normal 34.0 - 46.0 %[facility] HemeAutoSSHemoglobin (Bld) [Mass/Vol]12.6 g/kWRdzplf34.0 - 16.0 gm/dLFTMC HemeAutoSSMCH (RBC) [Entitic mass]29.9 baOyljpr88.0 - 34.0 pgFTMC HemeAutoSSMCHC (RBC) [Mass/Vol]34.6 g/lRVwfana68.4 - 36.0 gm/dLFTMC HemeAutoSS MCV (RBC) [Entitic vol]86.6 dPCxxyfp98.0 - 100.0 fLFTMC HemeAutoSSPlatelet mean volume (Bld) [Entitic vol]8.2 fLNormal6.4 - 10.8 fLFTMC HemeAutoSSPlatelets (Bld) [#/Vol]367.0 E9/MKinyue682.0 - 500.0 E9/LFTMC HemeAutoSSRBC (Bld) [#/Vol] 4.2 E12/LLow4.3 - 5.9 E12/LFTMC HemeAutoSSWBC corrected for nucl RBC Auto (Bld) [#/Vol]7.9 E9/LNormal4.0 - 11.0 E9/LFTMC HemeAutoSSPREG QUANT HCGon 08-29-2021 HCG HQQVH720 mIU/mLNormalSumma HealthComment on above:Performed By: #### PREGQNT ####[facility] [address] [address]Dr. Edward MICHAELUniversity Hospitals Lake West Medical CenterComment on above:Result Comment: 5-50 0-1 WEEK 40-300 1-2 WEEKS 100-1,000 2-3 WEEKS 500- 6,000 3-4 WEEKS 5,000-200,000 1-2 MONTHS 10,000-100,000 2-3 MONTHS 3,000-50,000 2ND TRIMESTER 1,000-50,000 3RD TRIMESTERPerformed By: #### PREGQNT ####[facility] [address] [address]Dr. Edward Cross QUANT HCGon 59-76-5283UWB QUANT99 mIU/mLNormalSumma HealthComment on above:Performed By: #### HIV12 #### [facility] [address] [address] [address] Edward MORA [facility]lower HospitalComment on above: Result Comment: 5-50 0-1 WEEK 40-300 1-2 WEEKS 100-1,000 2-3 WEEKS 500-6,000 3-4 WEEKS 5,000-200,000 1-2 MONTHS 10,000-100,000 2-3 MONTHS 3,000-50,000 2ND TRIMESTER 1,000-50,000 3RD TRIMESTERPerformed By: #### HIV12 #### [facility] [address], [place] [address] Dr. Edward Cross QUANT HCGon 09-75-2413PRM QUANT37 mIU/mLNormalSumma HealthComment on above:Performed By: #### PREGQNT ####[facility] [address] [address]Dr. Edward Lim RANGESEE [facility] HospitalComment on above:Result Comment: 50 0-1 WEEK 40-300 1-2 WEEKS 100-1,000 2-3 WEEKS 500-6,000 3-4 WEEKS 5,000-200,000 1-2 MONTHS 10,000-100,000 2-3 MONTHS 3,000-50,000 2ND TRIMESTER 1,000-50,000 3RD TRIMESTERPerformed By: #### PREGQNT ####[facility] [address] [address]Dr. Edward GillCHEMISTRYOrdered By: SYSTEM SYSTEM on 46-74-6311Xkksmqt [Mass/Vol]4.5 g/dLNormal3.3 - 5.0 gm/dLFT Remisol Albumin/Globulin [Mass ratio]1.2 {ratio}Normal1.1 - 2.2FTMC RemisolALP [Catalytic activity/Vol]53 [iU]/yHvwoan52 - 98 Int._Unit/LFTMC RemisolALT No additional P-5'-P [Catalytic activity/Vol]24 [iU]/dNormal6 - 46 Int._Unit/LFTMC RemisolAnion gap [Moles/Vol]13 mmol/LNormal6 - 16 mEq/LFTMC RemisolAST [Catalytic activity/Vol]20 [iU]/dNormal5 - 43 Int._Unit/LFTMC RemisolBilirubin [Mass/Vol]0.6 mg/dLNormal0.0 - 1.1 mg/dLFTMC RemisolCalcium [Mass/Vol]9.4 mg/dL Normal8.9 - 11.1 mg/dLFTMC RemisolChloride [Moles/Vol]97 mmol/BZhz954 - 111 mmol/LFTMC RemisolCO2 [Moles/Vol]24 mmol/LUsxjdy73 - 31 mmol/LFTMC Remisol Creatinine [Mass/Vol]0.8 mg/dLNormal0.5 - 1.3 mg/dLFTMC RemisolGFR/1.73 sq M.predicted among blacks MDRD (S/P/Bld) [Vol rate/Area]mL/min/1.73 x8Vzarfk >=59mL/min/1.73 m2FT Chem SGFR/1.73 sq M.predicted among non-blacks MDRD (S/P/Bld) [Vol rate/Area]mL/min/1.73 v8Grxtpw>=59mL/min/1.73 m2FT Chem S Globulin (S) [Mass/Vol]3.7 g/dLNormal1.4 - 4.0 gm/dLFTMC RemisolGlucose [Mass/Vol]74 mg/tNTjugts49 - 199 mg/dLFTMC RemisolMagnesium [Mass/Vol]2.0 mg/dL Normal1.3 - 2.4 mg/dLFTMC RemisolPotassium [Moles/Vol]3.5 mmol/LNormal3.5 - 5.3 mmol/LFTMC RemisolProtein [Mass/Vol]8.2 g/dLHigh6.0 - 7.8 gm/dLFTMC Remisol Sodium [Moles/Vol]130 mmol/KHfv506 - 145 mmol/LFTMC RemisolTSH Qn4.56 m[IU]/L Normal0.34 - 5.60 mcIU/mLFTMC RemisolUrea nitrogen [Mass/Vol]7 mg/dLNormal5 - 21 mg/dLFTMC RemisolUrea nitrogen/Creatinine [Mass ratio]9 mg/mgLow10 - 20FT[facility] RemisolHEMATOLOGYOrdered By: SYSTEM SYSTEM on 10-79-9551Pefdprsmu/100 WBC (Bld) 0.3 %Normal0.0 - 2.0 %[facility] HemeAutoSSBasophils/Leukocytes Auto (Bld) [Pure # fraction]0.0 E9/LNormal0.0 - 0.2 E9/LFTMC HemeAutoSSEosinophils/100 WBC (Bld)0.5 %Normal0.0 - 8.0 %[facility] HemeAutoSSEosinophils/Leukocytes Auto (Bld) [Pure # fraction]0.0 E9/LNormal0.0 - 0.5 E9/LFTMC HemeAutoSSLymphocytes/100 WBC (Bld) 35.9 %Twtcvd26.0 - 50.0 %[facility] HemeAutoSSLymphocytes/Leukocytes Auto (Bld) [Pure # fraction]3.2 E9/LNormal1.0 - 4.0 E9/LFTMC HemeAutoSSMonocytes/100 WBC (Bld)8.8 %Normal4.0 - 14.0 %[facility] HemeAutoSSMonocytes/Leukocytes Auto (Bld) [Pure # fraction]0.8 E9/LNormal0.2 - 1.0 E9/LFTMC HemeAutoSSNeutrophils/100 WBC (Bld) 54.5 %Bqhfua65.0 - 75.0 %[facility] HemeAutoSSNeutrophils/Leukocytes Auto (Bld) [Pure # fraction]4.8 E9/LNormal2.0 - 7.5 E9/LFTMC HemeAutoSSHEMATOLOGYOrdered By: Trena Castro on 71-26-9546Zrmjjozpubc distribution width (RBC) [Ratio]14.1 % Adfqkr65.9 - 14.2 %[facility] HemeAutoSSHematocrit (Bld) [Volume fraction]38.5 %Normal 34.0 - 46.0 %[facility] HemeAutoSSHemoglobin (Bld) [Mass/Vol]13.1 g/yHCcfgwy36.0 - 16.0 gm/dLFTMC HemeAutoSSMCH (RBC) [Entitic mass]29.4 qsJcrmro27.0 - 34.0 pgFTMC HemeAutoSSMCHC (RBC) [Mass/Vol]34.1 g/jCUcnikc84.4 - 36.0 gm/dLFTMC HemeAutoSS MCV (RBC) [Entitic vol]86.0 zBWromqp58.0 - 100.0 fLGRIFFIN [facility]ORIAL [facility] HemeAutoSSPlatelet mean volume (Bld) [Entitic vol]8.3 fLNormal6.4 - 10.8 fLGRIFFIN MEMORIAL [facility] HemeAutoSSPlatelets (Bld) [#/Vol]334.0 E9/RBsmmyc406.0 - 500.0 E9/LFINTE[facility] [place] HemeAutoSSRBC (Bld) [#/Vol] 4.5 E12/LNormal4.3 - 5.9 E12/LFINTEGRIS [facility] [place] HemeAutoSSWBC corrected for nucl RBC Auto (Bld) [#/Vol]8.9 E9/LNormal4.0 - 11.0 E9/LFINTEGRIS BAP[facility] [place] HemeAutoSSOB/LEAD SOFTWARE TEST ENGINEER - Office Visiton 01-10-4497IB/LEAD SOFTWARE TEST ENGINEER - Office VisitChief ComplaintComplains of: heavy bleeding Declines ryan, Susie Salomon, ROSE History of Present IllnessSanna [...] stroke 07/2017 PSH as above POB- 2007 [id number] 17week loss subchorionic h xlduntdrk2909 39weeks bleeding at 5weeks for 2 weeks diet 1205-4319 calories exercise none 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 Eyes: no eye pain, no vision problems and no dryness of the eyes. ENT: no hearing loss, no nosebleeds and no sinus congestion. Cardiovascular: no chest pain, no palpitations and no orthopnea. Respiratory: no shortness of breath, no cough and no wheezing. Gastrointestinal:no abdominal pain, no constipation, no nausea, no diarrhea and no vomiting. Genitourinary: no dysuria, no urinary incontinence, no vaginal dryness, no vaginal itching, no dyspareunia, no pelvic pain,no dysmenorrhea, no sexual problems, no change in [...] easy bleeding and no tendency for easy bruising.Surgical History History of Oral Surgery Tooth Extraction Paramount Tooth Family History No pertinent family history Family history of cerebrovascular accident (CVA) (V17.1) (Z82.3) Family history of diabetes mellitus (V18.0) (Z83.3) Family history of cerebrovascular accident (CVA) (V17.1) (Z82.3) Family history of cerebrovascular accident (CVA) (V17.1) (Z82.3) Allergies No Known Drug Allergies Recorded By: Susie Salomon; 11/08/2017 4:19:42 PM Current Meds Ciprofloxacin HCl - 500 MG Oral Tablet;Ther apy: 86Vik9303 to Recorded Dispense: 0 Days ; #: Sufficient Tablet; Refill: 0; BUBBA = N; Record; Last Updated By: Susie Salomon; 11/08/2017 4:19:42 PM Plavix 75 MG Oral Tablet;Therapy: 12Bfr3021 to Recorded Dispense: 0 Days ; #: Sufficient Tablet; Refill: 0; BUBBA = N; Record; Last Updated By: Susie Salomon; 11/08/2017 4:19:42 PM Provera 10 MG Oral Tablet;Therapy: 05Vbb3919 to Recorded Dispense: 0 Days ; #: Sufficient Tablet; Refill: 0; BUBBA = N; Record; Last Updated By: Susie Salomon; 11/08/2017 4:19:42 PM Vitals Vital Signs Recorded: 79Gqr0964 04:25OPPskadfjv088Hgiryiqlt41Oyigam0 ft 6 ukWjbcya528 lb BMI Lrsseztyyc94.57BSA Calculated1.8QCO15Kwx5625Esjo Scale6-7 Physical ExamConstitutional: Alert and in no acute distress. Well developed, well nourished. Head and Face: Head and face: Normal. Psychiatric: Alert and oriented x 3. Affect normal to patient baseline. Mood: Appropriate. Diagnoses/Problems Anemia (285.9) (D64.9) Asthma (493.90) (J45.909) Depression with anxiety (300.4) (F41.8) History of Oral Surgery Tooth Extraction Paramount Tooth No pertinent family history : Mother Family historyof diabetes mellitus (V18.0) (Z83.3) : Father Family history of cerebrovascular accident (CVA) (V17.1) (Z82.3) : Father, PaternalGrandmother, Paternal Grandfather Provider ImpressionsAbnormal menses-will continue on Provera but discussed the options of Paraguard IUD and Mirena IUDHistory of stroke,continue PlavixRight ovarian cyst, follow up ultrasound req given for 6 monthsRectal bleeding, likely hemorrhoids, follow up with GIDeclines STI testing todayWeight gain, offered a cops consult and she declined. Encouraged exercise. Signatures Electronically signed by : RICHARD Ulrich; Nov 12 2017 8:46PM EST (Author)NormalUH TouchworksAntiphospholipid Abs IgG/IgMon [id number] [id number] GPLCritically high0-14West Springs HospitalComment on above:Result Comment: INTERPRETIVE INFORMATION: High- Specificity Antiphospholipid Antibody,IgG14 GPL or less......[id number] 26 GPL.........Indeterminate Suggest repeat testing in 12 weeks27 GPL or greater. ..PositiveHigh-specificity antiphospholipid IgG and IgM antibodies are directedagainsta mixture of phosphatidylserine, phosphatidic acid, and beta- 2glycoprotein 1antigens. These antibodies are more specific than cardiolipin IgG andIgMantibodies in the diagnosis of antiphospholipid syndrome (APS). Antiphospholipid Ab-IgM6 MPLNormal0-14[facility] Springs HospitalComment on above:Result Comment: INTERPRETIVE INFORMATION: High-Specificity Antiphospholipid Antibody,IgM14 MPL or less......Onxokgre49 37 MPL.........Indeterminate Suggest repeat testing in 12 weeks38 MPL or greater. ..PositiveHigh-specificity antiphospholipid IgG and IgM antibodies are directedagainsta mixture of phosphatidylserine, phosphatidic acid, and beta- 2glycoprotein 1antigens. These antibodies are more specific than cardiolipin IgG andIgMantibodies in the diagnosis of antiphospholipid syndrome (APS).Performed by [facility],[address] [place] [address] kbg.[employer], Zhang Bledsoe MD - Lab. DirectorPLAINS [facility] Miscellaneous test 1on 05-28-2017 Miscellaneous Test 1SSan Luis Valley Regional Medical CenterComment on above: Result Comment: Test name Result Flag Units RefIntvl Double-Stranded DNA (dsDNA) Ab IgG ALEX None Detected NoneDetectedINTERPRETIVE INFORMATION: Double-Stranded DNA (dsDNA) Antibody, IgG byELISAPositivity for anti-double stranded DNA (anti-dsDNA) IgG antibody is adiagnostic criterion of systemic lupus erythematosus (SLE). Spec imensareinitially screened by enzyme-linked immunosorbent assay (ALEX). AllELISAresults reported as detected (positive) are confirmed by a highlyspecificIFA titer (Crithidia luciliae indirect fluorescent test [MAGEN]). Somepatients with early or inactive SLE may be positive for anti-dsDNA IgGbyEL PORFIRIO but negative by MAGEN. If the patient is negative by MAGEN butpositiveby ALEX and clinical suspicion remains, consider antinuclear antibody(NASEEM)testing by IFA. Additional information and recommendations for testingmay befound athttp://www.[employer]/Topics/AutoimmuneDz/ConnectiveTissueDz/i ndex.html.Performed by [facility],[address] [place] [address] ohv.[employer],Zhang Bledsoe MD - Lab. DirectorCardiolipin Antibodies, IgA, IgG, IgMon 22-77-8152Xfdlnjfbiph Ab IgA0 APLNormal0-11[facility] HospitalComment on above:Result Comment: INTERPRETIVE INFORMATION: Cardiolipin Antibodies, IgA0-11 APL: Cwfvbnff30-83 APL: In clapdmidlae05-33 APL: Low to Moderately Pvzlguek77 APL or above: High PositivePerformed by [facility],[address] [facility] [place] [address] orj.[employer], Zhang Bledsoe MD - Lab. DirectorCardiolipin Ab IgG 111 GPLCritically high0-14[facility] HospitalComment on above:Result Comment: INTERPRETIVE INFORMATION: Anti-Cardiolipin IgG Ab0-14 GPL: Ncphfmkn62- 19 GPL: Oxgjwctnznktj25-09 GPL: Low to Moderately Uehjwqbx96 GPL or above: High PositiveThe persistent presence [...] and must be interpreted in light of APS- specific clinicalmanifestations and/or other criteria phospholipid antibody tests.Cardiolipin Ab IgM10 MPLNormal0-12[facility] HospitalComment on above:Result Comment: INTERPRETIVE INFORMATION: Anti-Cardiolipin IgM0-12 MPL: Swqczlvl76-19 MPL: Baqmhdhgrdpfa39-81 MPL: Low to Moderately Yptnmwee14 MPL or above: High PositiveThe persistent presence [...] at least 12 weeks apart (J Throm Haemost.2006;4:295- 306).Lower positive levels of IgG and/or IgM CL antibodies (above cutoff butlessthan 40 GPL and/or less than 40 MPL units) may occur in patients withtheclinical symptoms of APS; therefore, the actualsignificance of theselevelsis undefined. Results should not be used alone for diagnosis and mustbeinterpreted in light of APS-specific clinical manifestations and/orothercriteria phospholipid antibody tests.Jennifer-Simpson Virus by PCRon 29-39-0876Iijkgfx Simpson Virus by PCRNot DetectedNoChildren's Hospital Colorado, Colorado SpringsComment on above:Result Comment: NOT DETECTED - A negative result does not rule out thepresence of PCR inhibitors inthe patient specimen or assayspecific nucleic acid in concentrations below the level ofdetection bythe assay.INTERPRETIVE INFORMATION: Jennifer Simpson Virus by PCRTest developed and characteristics determined by [facility]. SeeCompliance Statement A: [employer]/CSPerformed by [facility],[address] [place] [address] trw.[employer], Zhang Bledsoe MD - Lab. DirectorEpstein Simpson Virus SourceCSFNoChildren's Hospital [place], Colorado SpringsOligoclonal Band Profileon 17-05-0232Dpmavdo5359 mg/uSOjeepx4432-1777DcxooWest Springs HospitalAlbumin 5.2 ratioNormal0.0-9.0[facility] HospitalAlbumin, CSF20 mg/dLNormal 0-35[facility] HospitalCSF IgG Synthesis Rate<0.0Normal<=8.0[facility] HospitalCSF Oligoclonal BandsNegativeNormalNegativeWest Springs HospitalCSF Oligoclonal Bands Number0 BandsNormal0-1MercRegional Rehabilitation HospitalGlobulin1060 mg/hGJlmvsk313-6136IyvhwWest Springs Hospital Comment on above:Result Comment: REFERENCE INTERVAL: Immunoglobulin GAccess complete set of age- and/or gender-specific reference intervalsforthis test in the [facility] Test Directory ([employer]).IgG Index0.45 ratioNormal 0.28-0.66[facility] Springs HospitalImmunoglobulin G CSF2.5 mg/dLNormal0.0-6.0 [facility] HospitalINR Coag RelTime (Bld)0.12 {INR}Normal0.09-0.25 [facility] HospitalInterpretationSee NoteNormKindred Hospital - Denver SouthComment on above:Result Comment: Isoelectric focusing/immunofixation reveals no oligoclonal bands ineitherthe CSF orthe serum. This is considered to be a negative result foroligoclonal bands. Approximately 5 percentof patients with clinicallydefinitive multiple sclerosis will have a negative result.Performed by [facility],[address] [facility] [place] [address] pay.[employer], Zhang Bledsoe MD - Lab.DirectorMyelin Basic Protein, CSFon 22-05-9487Xrgorm Basic Protein1.82 ng/mLNormal0.00-5.50West Springs HospitalComment on above:Result Comment: INTERPRETIVE INFORMATION: Myelin Basic ProteinTest developed and characteristics determined by [facility]. SeeCompliance Statement D: [employer]/CSPerformed by [facility],[address] [facility] [place] [address] xrl.[employer], Zhang Bledsoe MD - Lab. DirectorPLAINS REGION[facility] Miscellaneous test 123-93-4616Xcpbqkq Prompt 51939ZhevanCcthsAdventHealth AvistaComment on above:Result Comment: Corrected result; [place] [id number] on 05/25/2017 at 13:14 by V/AUT [facility] Miscellaneous test 106-14-2182Xywboiz Fhyonw52660YciedvKzjlqChildren's Hospital [place], [place] SpringsComment on above:Result Comment: DS DNACSF Cell Counton 05-25-2017 CSF no diffsee belowNoChildren's Hospital [place], Colorado SpringsComment on above:Result Comment: Differential not performed -Total Nucleated cellsCSF AppearanceClear [facility] AvistaCSF ColorColorlessNoChildren's Hospital [place], Colorado SpringsCSF Tube NumberTube 4NoChildren's Hospital [place], Colorado SpringsFluid Clot Evaluationsee belowAdventHealth AvistaComment on above:Result Comment: No Clots SeenTotal Nucleated Cells0 K/uLNormal0-8West Springs HospitalTotal Red Blood Cells0 K/uLNoChildren's Hospital [place], Colorado SpringsCSF Glucose on 09-66-2022INH Wodpawg59 mg/rSBislat72-77DokqnWest Springs HospitalCSF Proteinon 82-16-5382KTZ Gjimujr57 mg/kOPukniy72-12YxjxbWest Springs Hospital Creatine Kinaseon 35-31-1847Emajkfoc kinase (CK)71 U/LNormal0-170West Springs HospitalCulture, CSFon 84-09-9357Hzgkyms, CSFORDER#: [id number] ORDERED BY: VERNA MONGE: CSF (Spinal Fluid) CSF COLLECTED: 05/25/17 13:25ANTIBIOTICS AT AMARILYS.: RECEIVED : 05/25/17 13:25Gram Stain Direct FINAL 05/25/17 15:30 No WBC's, No organisms seenCulture, CSF FINAL 05/28/17 09:04 No growth at 72 hours [facility] AvistaFL LUMBAR PUNCTURE DIAGon 25-34-8916LY LUMBAR PUNCTURE DIAGFL LUMBAR PUNCTURE DIAG : 05/25/2017CLINICAL HISTORY: G35 Multiple sclerosis (HCC) ICD10.COMPARISON:None available.PROCEDURE: Informed consent was obtained.Sterile technique, local lidocaine anesthesia and fluoroscopic guidance were used to place a 22-gauge spinal needle into the subarachnoid spacebetween the L2-3 interspace.Approximately 10 mL of clear CSF was aspirated into 4 separate containers and sent for analysis as requested.The patient tolerated the procedure without evidence of immediate complication, and was monitored in the radiology department for approximately 4 hours without event and subsequently discharged home in stable condition with the usual instructions.IMPRESSION: FLUO ROSCOPIC-GUIDED LUMBAR PUNCTURE.Interpreted by:NIKITA Mezaigned by:Humera Covarrubias MD//18Final resultNoChildren's Hospital [place], [place] Homocysteineon 87-92-6026Euktargjmuuw6.1 umol/LNormal0.0-15.0West Springs HospitalPartial Thromboplastin Timeon 48-61-7345gVTY32.7 wWrcfsi43.6-35.4 [facility] HospitalComment on above:Result Comment: Heparin Therapeutic Range: 38.8 - 54.6 seconds.Prothrombin Timeon 48-42-2050MCM Coag RelTime (PPP)1.0 {INR}NormalWest Springs HospitalComment on above:Result Comment: Recommended INR therapeutic ranges for oral anticoagulanttherapyProphylaxis/treatment of: INR Venous Thrombosis, Pulmonary Embolism 2.0-3Prevention of Systemic Embolism from: Atrial Fibrillation 2.0-3.0 Myocardial Infarction 2.0-3.0 Mechanical Prosthetics Heart Valves 2.5-3.5 Recurrent Systemic Embolism 2.5-3.5Guidelines for patients with coagulopathy, e.g. liver disease:Use the Protime resulted in seconds. Mild 12.9-17.0 sec Moderate 17.1-22.6 sec Severe G.T. 22.6 secProthrombin time (PT) Coag time (PPP) 10.7 sNormal8.1-13.7[facility] Vital Signs Date TimeVital SignValuePerforming RdndytcwwLvkbkpco48-07-2212 13:44-0400Body .6 Kolton Callahan MD MPH Work Phone: [facility] [employer] Hbttfh11-20-1532 13:44-0400Body mass index (BMI) [Ratio]33.73 kg/q6HrmypSam Callahan MD MPH Work Phone: [facility] [employer] Ormjqu62-39-3816 13:44-0400Body hjytbe28.8 kgSam Callahan MD MPH Work Phone: [facility] Jycmjz00-60-2675 13:44-0400Diastolic blood dymexhsv45 mm[Hg]Sam Callahan MD MPH Work Phone: [facility]10-20-2025 13:44-0400Heart rate 79 /minSam Callahan MD MPH Work Phone: [facility]10-20-2025 13:44-0400 Respiratory rate18 /minSam Callahan MD MPH Work Phone: [facility]10-20-2025 13:44-0400Systolic blood zvweyxev175 mm[Hg]Sam Callahan MD MPH Work Phone: [facility]10-13-2025 10:45-0400Body mass index (BMI) [Ratio]34.12 kg/l1Ofmdx Montez DO Work Phone: [phone] [address]-13-2025 10:45-0400Body vgpija40.89 kgCorey Montez DO Work Phone: 1(851)[facility] [place] [address]-13-2025 10:45-0400Diastolic blood njionada24 mm[Hg]Wilton Montez DO Work Phone: 1(353)[facility] [place] [address]-13-2025 10:45-0400Systolic blood byxomhif071 mm[Hg]Wilton Montez DO Work Phone: 1(982)[facility] [place], [place] [address]Pqqsghktfg81-33-2540 09:30-0400Body mass index (BMI) [Ratio]34.14 kg/d1Halhq Montez DO Work Phone: 1(257)[facility] [place], [place] [address]Sqqjixtvnm77-45-9067 09:30-0400Body .94 kgCorey Montez DO Work Phone: 1(841)[facility] [place], [place] [address]Ltihlofmls65-95-9571 09:30-0400Diastolic blood mijcktqk06 mm[Hg]Wilton Montez DO Work Phone: 1(489)[facility] [place] [address]-22-2025 09:30-0400Systolic blood pyhtxisk759 mm[Hg]Wilton Montez DO Work Phone: 1(041)[facility] [place] [address]-08-2025 15:14-0400Body mass index (BMI) [Ratio]33.73 kg/e5Mwuvv Montez DO Work Phone: [phone] [place] [address]-08-2025 15:14-0400Body kkccat93.8 kg Wilton Montez DO Work Phone: [facility] CenterDwdldfnrne93-47-6590 15:14-0400Diastolic blood wdbeckmr52 mm[Hg]Wilton Montez DO Work Phone: [facility] CenterQyzsaefifp61-37-7256 15:14-0400Systolic blood mmbdpaad688 mm[Hg]Wilton Montez DO Work Phone: [facility] CenterAkveeeymqf71-56-9994 14:22-0400Body mass index (BMI) [Ratio]33.89 kg/f7ZbvqfmtnMukul Noyola MD Work Phone: [phone]09-04-2025 14:22-0400Body wntfaw85.25 kgMukul Noyola MD Work Phone: 1(295)[address] [place], [place] [address]31[address]09-04-2025 14:22-0400Diastolic blood tcriimjl59 mm[Hg]Mukul Noyola MD Work Phone: 1(870)[address] [place], [place] [address]31[address]09-04-2025 14:22-0400Systolic blood mm[Hg]Mukul Noyola MD Work Phone: 1(717)[address] [place], [place] [address]08-26-2025 11:34-0400Body ajvrer211.7 cmKatherine Negrete APRN.COUNCILOR Work Phone: [facility]08-26-2025 11:34-0400Body mass index (BMI) [Ratio]33.57 kg/c2QregxKatherine Negrete APRN.COUNCILOR Work Phone: [facility]08-26-2025 11:34-0400Body temperature 97.59 [degF]Katherine Negrete APRN.COUNCILOR Work Phone: [facility]08-26-2025 11:34-0400Body .4 kgKatherine Negrete APRN.COUNCILOR Work Phone: [facility]08-26-2025 11:34-0400Diastolic blood nhkhulpb44 mm[Hg]Katherine Negrete APRN.COUNCILOR Work Phone: [facility]08-26-2025 11:34-0400Heart rate80 /min Katherine Negrete APRN.COUNCILOR Work Phone: [facility]08-26-2025 11:34-0400Respiratory rate 16 /minKatherine Negrete APRN.COUNCILOR Work Phone: [facility]08-26-2025 11:34-0062TkJ4% (BldA) [Mass fraction]98 %Katherine Negrete APRN.COUNCILOR Work Phone: [facility]08-26-2025 11:34-0400Systolic blood modzfcvq170 mm[Hg]Katherine Negrete APRN.COUNCILOR Work Phone: [facility]08-14-2025 09:28-0400Body mass index (BMI) [Ratio]33.41 kg/z0Iadop Montez DO Work Phone: [facility] CenterJgggleeybf55-89-9828 09:28-0400Body uoelku68.89 kgCorey Montez DO Work Phone: [place] [address]Yqqslliofs49-70-1275 09:28-0400Diastolic blood tpugdfcw02 mm[Hg]Wilton Montez DO Work Phone: [place] [address]Slgckaucpx99-61-7701 09:28-0400Systolic blood hoxfyqgh130 mm[Hg]Wilton Montez DO Work Phone: [facility] CenterJelfqgcanh90-72-3800 10:53-0400Body mass index (BMI) [Ratio]33.57 kg/y2Olyxp Montez DO Work Phone: [facility] CenterOhxdjlcjzf92-52-5101 10:53-0400Body qairkm77.35 kgCorey Montez DO Work Phone: [place] [address]Lyqssdgtvy84-16-2912 10:53-0400Diastolic blood ykqenklj00 mm[Hg]Wilton Montez DO Work Phone: [place] [address]Seozdmtoow95-41-8069 10:53-0400Systolic blood pavhbngt188 mm[Hg]Wilton Montez DO Work Phone: [facility] CenterYvrauuiqke00-05-0824 13:07-0400Body mass index (BMI) [Ratio]33.73 kg/z2QbowdgLorena Enciso RN Work Phone: [facility]07-23-2025 13:07-0400Body .8 kgLorena Enciso RN Work Phone: 1(693)167-[address] [place], [place] [address]207-03-2025 09:32-0400Body mass index (BMI) [Ratio]33.81 kg/s2Npkvo Montez DO Work Phone: [facility] CenterZwvzjjvtqs52-15-0383 09:32-0400Body wnaslf98.03 kgCorey Montez DO Work Phone: [facility] CenterBjcduxdcga84-33-6209 09:32-0400Diastolic blood vbuectpu92 mm[Hg]Wilton Montez DO Work Phone: [facility] CenterHrjzwulaxe61-55-4960 09:32-0400Systolic blood ehycdrav107 mm[Hg]Wilton Montez DO Work Phone: [facility] CenterSyskszrazw69-41-3565 14:23-0400Body mass index (BMI) [Ratio]33.46 kg/v7XmjpgKatherine Negrete APRN.COUNCILOR Work Phone: [facility]07-01-2025 14:23-0400Body temperature 97 [degF]Katherine Negrete APRN.COUNCILOR Work Phone: [facility]07-01-2025 14:23-0400Body ginzpy99.1 kgKatherine Negrete APRN.COUNCILOR Work Phone: [facility]07-01-2025 14:23-0400Diastolic blood mm[Hg]Katherine Negrete APRN.COUNCILOR Work Phone: [facility]07-01-2025 14:23-0400Heart rate82 /min Katherine Negrete APRN.COUNCILOR Work Phone: [facility]07-01-2025 14:23-0400Respiratory rate 16 /minKatherine Negrete APRN.COUNCILOR Work Phone: [facility]07-01-2025 14:23-1903BxO4% (BldA) [Mass fraction]100 %Katherine Negrete APRN.COUNCILOR Work Phone: [facility]07-01-2025 14:23-0400Systolic blood kojqppkh042 mm[Hg]Katherine Negrete APRN.COUNCILOR Work Phone: [facility]06-05-2025 14:10-0400Body mass index (BMI) [Ratio]33.89 kg/m2[facility]06-05-2025 14:10-0400Body eqmxoq82.25 kgBarn[facility]06-05-2025 14:10-0400Diastolic blood dxfmtxla90 mm[Hg][facility]06-05-2025 14:10-0400Systolic blood amajjxlw762 mm[Hg][facility]03-27-2025 12:07-0400Body mass index (BMI) [Ratio]34.44 kg/w3Xiqhy Montez DO Work Phone: [facility] CenterWfiihnlblq75-44-6951 12:07-0400Body qeyrkz92.8 kg Wilton Montez DO Work Phone: [facility] CenterYjtrsnlemm89-61-7198 12:07-0400Diastolic blood adbbqxvc76 mm[Hg]Wilton Montez DO Work Phone: [place] [address]Eggvfxymqo69-40-2911 12:07-0400Systolic blood efzloscl511 mm[Hg]Wilton Montez DO Work Phone: [facility] CenterFtyielzsud93-13-5487 08:27-0500Blood Pressure LocationScott KAPLE [phone]-QxupkThe [facility]03-03-2025 08:27-0500Diastolic blood idxmkipo08 mm[Hg]Penelope KAPLE [phone]-DsieaThe [facility]03-03-2025 08:27-0500Heart rate77 /minScott KAPLE [phone]-FvpyaThe [facility]03-03-2025 08:27-2300NtF6% (BldA) [Mass fraction]99 %Penelope CASAS [phone]-KspmeThe [facility]03-03-2025 08:27-0500Systolic blood qkksdfas092 mm[Hg]Penelope CASAS 999-7062Mkwbts-XxdacThe [facility]02-24-2025 15:21-0500Body mass index (BMI) [Ratio]34.93 kg/g9Bgbph Montez DO Work Phone: [facility] CenterDwbwtlzgjp57-22-6533 15:21-0500Body .16 kgCorey Montez DO Work Phone: [facility] CenterQwbhrtdinm99-83-1792 15:21-0500Diastolic blood mm[Hg]Wilton Montez DO Work Phone: [facility] CenterMlkaskwqys29-12-2351 15:21-0500Systolic blood mrukylps378 mm[Hg]Wilton Montez DO Work Phone: [facility] CenterZfhilmkqvs61-56-4817 16:14-0500Blood Pressure LocationBARRONCLYN KEVEN [phone]-UvdthLouis [facility] 06-19-2024 16:14-0500Diastolic blood zxcuqbgu37 mm[Hg]JESSICA BACA [phone]-GawlhLouis [facility] 06-19-2024 16:14-0500Heart rate74 /minALFIEYN KEVEN 298-7099Ggxxnw-NgcssLouis [facility] 06-19-2024 16:14-6577KdW3% (BldA) [Mass fraction]100 %JESSICA BACA [phone]-XlaimLouis [facility] 06-19-2024 16:14-0500Systolic blood neasqzfq128 mm[Hg]JESSICA BACA [phone]-QdganPremier Health [facility] [place] 06-09-2024 13:55-0500Blood Pressure LocationScott PRAVEEN [phone]-OgekhThe [facility]02-10-2025 13:55-0500Diastolic blood jmgxsvqy07 mm[Hg]Penelope CASAS [phone]-KaqweThe [facility]02-10-2025 13:55-0500Heart rate78 /minScott KAPBEN 146-9198Beesam-CkulhThe [facility]02-10-2025 13:55-0556BrS6% (BldA) [Mass fraction]99 %Penelope CASAS 306-2116Jrolzh-QrjjcThe [facility]02-10-2025 13:55-0500Systolic blood jgjnipcp341 mm[Hg]Penelope CASAS 229-2187Fgdylf-QtxuxThe [facility]02-03-2025 11:43-0500Body mass index (BMI) [Ratio]34.51 kg/t4Tmxka Montez DO Work Phone: [facility] CenterUhtfxrkcxv10-24-4860 11:43-0500Body qqdjaw91.98 kgCorey Montez DO Work Phone: [facility] CenterHdwxpqqpdq62-48-7219 11:43-0500Diastolic blood gkupydxi00 mm[Hg]Wilton Montez DO Work Phone: [facility] CenterLuwzjcqcrf22-11-9343 11:43-0500Systolic blood tsskaqrk310 mm[Hg]Wilton Montez DO Work Phone: [facility] CenterWxoofzzdiy31-23-1482 13:07-0500Body oykuyn612.7 cmVramos Calix MD Work Phone: [facility]01-29-2025 13:07-0500Body mass index (BMI) [Ratio]35.02 kg/n7CchojKristofer Calix MD Work Phone: [facility]01-29-2025 13:07-0500Body temperature 97.59 [degF]Kristofer Calix MD Work Phone: [facility]01-29-2025 13:07-0500Body vpomze67.5 kgKristofer Calix MD Work Phone: [facility]01-29-2025 13:07-0500Diastolic blood pnilubjz63 mm[Hg]Kristofer Calix MD Work Phone: [facility]01-29-2025 13:07-0500Heart rate72 /min Kristofer Calix MD Work Phone: [facility]01-29-2025 13:07-0500Respiratory rate 16 /minKristofer Calix MD Work Phone: [facility]01-29-2025 13:07-8466LdM2% (BldA) [Mass fraction]99 %Kristofer Calix MD Work Phone: [facility]01-29-2025 13:07-0500Systolic blood ixxyomqv089 mm[Hg]Kristofer Calix MD Work Phone: [facility]01-07-2025 14:40-0500Body mass index (BMI) [Ratio]35.41 kg/j4Wklec Montez DO Work Phone: [facility] CenterOeptbcydza93-91-2563 14:40-0500Body hyztdh76.52 kgCorey Montez DO Work Phone: [facility] CenterIdnllxswtn55-47-0146 14:40-0500Diastolic blood skkymvqr75 mm[Hg]Wilton Montez DO Work Phone: [facility] CenterRggudeflzi81-62-9441 14:40-0500Systolic blood unzzegvb231 mm[Hg]Wilton Montez DO Work Phone: [facility] CenterKejtdduygi13-65-0873 10:57-0500Body mass index (BMI) [Ratio]35.85 kg/m2[facility]12-06-2024 10:57-0500Body vzmavw062.75 kgBarn[facility]10-08-2024 13:29-0400Blood Pressure LocationScott KAPLE [phone]-Ciexk[address] [place], [place] [address]10-08-2024 13:29-0400Body sapprhuhqui56.06 [degF]Penelope CASAS 326-7936Philyu-Zrhkp[address] [place], [place] [address]4310-08-2024 13:29-0400Diastolic blood mm[Hg]Penelope CASAS [phone]-Advzm[address] [place], [place] [address]10-08-2024 13:29-0400Heart rate76 /minScott KAPLE 611-5461Xdktdq-Zthdo[address] [place], [place] [address]4310-08-2024 13:29-0400Respiratory rate16 /minScott KAPLE 327-3318Ddvnfu-Hpjis[address] [place], [place] [address]10-08-2024 13:29-2425EgX3% (BldA) [Mass fraction]99 %Penelope CASAS [phone]-Ylarz[address] [place], [place] [address]4310-08-2024 13:29-0400Systolic blood wvuhrafa123 mm[Hg]Penelope CASAS [phone]-Lyyqi[address] [place], [place] [address]234310-05-2024 14:39-0400Blood Pressure LocationPreeti Gudimella [phone]-Lajvk[address] [place], [place] [address]10-05-2024 14:39-0400Body eskdeajeynt12.06 [degF]Anni Gudimella 471-4022Jpsahq-Ddsal[address] [place], [place] [address]10-05-2024 14:39-0400Diastolic blood twhneala12 mm[Hg]Anni Gudimella [phone]-XpphzK[facility]tering Health [facility]10-05-2024 14:39-0400Heart rate98 /minPreeti Gudimella [phone]-UeqtkPremier Health [facility] Zxsr09-63-0038 14:39-9902PwE4% (BldA) [Mass fraction]99 %Anni Gudimella [phone]-MchthPremier Health [facility] Mxzd98-87-0783 14:39-0400Systolic blood ngwhzchy385 mm[Hg]Anni Gudimella 768-7475Xmknya-PigldPremier Health [facility]rium [facility] Teem81-98-7977 13:45-0400Body ubzwuz497.7 cmVramos Calix MD Work Phone: [facility]09-04-2024 13:45-0400Body mass index (BMI) [Ratio]36.52 kg/p9PbegdKristofer Calix MD Work Phone: [facility]09-04-2024 13:45-0400Body temperature 97.11 [degF]Kristofer Calix MD Work Phone: [facility]09-04-2024 13:45-0400Body wdiuhx700.7 kgKristofer Calix MD Work Phone: [facility]09-04-2024 13:45-0400Diastolic blood mm[Hg]Kristofer Calix MD Work Phone: [facility]09-04-2024 13:45-0400Heart rate91 /min Kristofer Calix MD Work Phone: [facility]09-04-2024 13:45-0400Respiratory rate 16 /minKristofer Calix MD Work Phone: [facility]09-04-2024 13:45-4577WrE7% (BldA) [Mass fraction]100 %Kristofer Calix MD Work Phone: [facility]09-04-2024 13:45-0400Systolic blood mm[Hg]Kristofer Calix MD Work Phone: [facility] [facility]08-01-2024 13:40-0400Body temperature 97.7 [degF]Chair Boone Work Phone: [facility]08-01-2024 13:40-0400Diastolic blood xxfchean78 mm[Hg]Chair Boone Work Phone: [facility]08-01-2024 13:40-0400Heart rate75 /min Chair Boone Work Phone: [facility]08-01-2024 13:40-0400Respiratory rate 16 /minChair Stew Work Phone: [facility]08-01-2024 13:40-6679MuS2% (BldA) [Mass fraction]99 %Chair Boone Work Phone: [facility]08-01-2024 13:40-0400Systolic blood hqltuqfw376 mm[Hg]Chair Boone Work Phone: [facility]07-25-2024 14:00-0400Body temperature 98.2 [degF]Chair Boone Work Phone: [facility]07-25-2024 14:00-0400Diastolic blood kgvviiau57 mm[Hg]Chair Boone Work Phone: [facility]07-25-2024 14:00-0400Heart rate79 /min Chair Stew Work Phone: [facility]07-25-2024 14:00-0400Respiratory rate 16 /minChair Stew Work Phone: [facility]07-25-2024 14:00-6519XbQ5% (BldA) [Mass fraction]99 %Chair Boone Work Phone: [facility]07-25-2024 14:00-0400Systolic blood nrynwijd351 mm[Hg]Chair Stew Work Phone: [facility]07-18-2024 14:08-0400Diastolic blood gzrljeie59 mm[Hg]Chair Boone Work Phone: [facility]07-18-2024 14:08-0400Heart rate85 /min Chair Claudio Work Phone: [facility]07-18-2024 14:08-0400Respiratory rate 18 /minChair Claudio Work Phone: [facility]07-18-2024 14:08-2285NnC3% (BldA) [Mass fraction]96 %Chair Claudio Work Phone: [facility]07-18-2024 14:08-0400Systolic blood euuxrxdz175 mm[Hg]Chair Claudio Work Phone: [facility]07-12-2024 14:44-0400Blood Pressure LocationMonica Saba [phone]-Zwlsl[address] [place], [place] 6234307-12-2024 14:44-0400Body abipcnmrngj74.34 [degF]Monica Saba 965-2411Dpjkys-Gvcpf[address] [place], [place] 6234307-12-2024 14:44-0400Diastolic blood szunahuy08 mm[Hg]Monica Saba [phone]-Bgsxh[address]07-12-2024 14:44-0400Heart rate85 /Jennifer Saba 341-5670Jzdfob-EuhptThe [facility]07-12-2024 14:44-0400Respiratory rate16 /Jennifer Saba 945-6618Nhohqz-Ngdvi[address] [place], [place] 6234307-12-2024 14:44-2369CpZ7% (BldA) [Mass fraction]99 %Monica Saba 824-7084Fhxcqo-Wgkwb[address] [place], [place] 6234307-12-2024 14:44-0400Systolic blood kettxydw292 mm[Hg]Monica Saba 906-4686Ttxrpj-Mhwjf[address] [place], [place] 6234306-25-2024 16:48-0400Blood Pressure LocationLourdes Garber 190-5260Ikgngo-Ijvul[address] [place], [place] 6234306-25-2024 16:48-0400Body qsldyslaqsu74.52 [degF]Lourdes Garber 683-0092Ouktab-Gfyea[address]06-25-2024 16:48-0400Diastolic blood pavpbadr99 mm[Hg]Lourdes Garber 185-1133Qmtjmn-Skqml[address] [place], [place] 6234306-25-2024 16:48-0400Heart rate86 /minLourdes Garber 070-4253Npqrnh-Bsdfw[address] [place], [place] 6234306-25-2024 16:48-7671ThH1% (BldA) [Mass fraction]99 %Lourdes Garber [address] [place], [place] 1383206-25-2024 16:48-0400Systolic blood yvkrrwck151 mm[Hg]Lourdes Garber 469-2201Rodvhy-Invem[address] [place], [place] 6234305-31-2024 21:17-0400Body vkxbiosfgoh09.06 [degF]Benny Uribe [address] [place], [place] 1367305-31-2024 21:17-0400 Diastolic blood vahwzscp22 mm[Hg]Benny Uribe [address] [place], [place] 1367305-31-2024 21:17-0400Heart rate67 /minBenny Uribe [address] [place], [place] 1367305-31-2024 21:17-0400Mean blood mngibmby38 mm[Hg]Benny Uribe [address] [place], [place] 1367305-31-2024 21:17-6411PwO4% (BldA) [Mass fraction]95 %Benny Uribe [address] [place], [place] 1367305-31-2024 21:17-0400 Systolic blood ljpfwdyd279 mm[Hg]Benny Uribe [address] [place], [place] 1367305-31-2024 20:00-0400 Diastolic blood cqjxgewv10 mm[Hg]Benny Uribe [address]05-31-2024 20:00-0400Heart rate78 /minBenny Uribe [address] [place], [place] 0783005-31-2024 20:00-0400Mean blood fgagrbze98 mm[Hg]Benny Uribe [address] [place], [place] 0783005-31-2024 20:00-0400 Respiratory rate20 /minBenny Uribe [address] [place], [place] 0783005-31-2024 20:00-0400 Systolic blood lvgdinnq017 mm[Hg]Benny Uribe [address] [place], [place] 0783005-31-2024 19:30-0400 Diastolic blood mm[Hg]Benny Uribe [address] [place], [place] 0783005-31-2024 19:30-0400Heart rate80 /minBenny Uribe [address] [place], [place] 0783005-31-2024 19:30-0400Mean blood mm[Hg]Benny Uribe [address] [place], [place] 0783005-31-2024 19:30-0400 Respiratory rate18 /minBenny Uribe [address] [place], [place] 1367305-31-2024 19:30-8195PeP7% (BldA) [Mass fraction]100 %Benny Uribe [address] [place], [place] 0783005-31-2024 19:30-0400 Systolic blood fwpacyhl831 mm[Hg]Benny Uribe [address] [place], [place] 0783005-31-2024 19:00-0400 Respiratory rate17 /minBenny Uribe [address] [place], [place] 1367305-31-2024 18:32-0400Body jjcuzcqxjqm02.42 [degF]Benny Uribe [address] [place], [place] 1367305-31-2024 18:32-0400Heart rate69 /minBenny Uribe [facility]05-31-2024 17:46-0400 Diastolic blood lwnaulju02 mm[Hg]JANET DUNHAM 202-0600Yiqjft-Khxkw[address] [place] [address] [employer] Lvkg81-69-0503 17:46-0400Mean blood ebrcbqed195 mm[Hg]JANET DUNHAM 345-7486Gqbolj-Zmapa[address] [place] [address] [employer] Ackv83-09-1504 17:46-0400Systolic blood eocwpirc499 mm[Hg]JANET DUNHAM 220-1131Tidynv-Lfike[address] [place] [address] [employer] Dsir31-19-5686 17:40-0400Blood Pressure LocationFRANCISCO DUNHAM 037-5973Sztdxe-Dneei[address] [place] [address] [employer] Pkqa26-34-0304 17:40-0400Body .88 [degF]JANET DUNHAM 942-2162Gutdfh-Eroyq[address] [place] [address] [employer] Vpcf84-45-4913 17:40-0400Diastolic blood pojvzedk20 mm[Hg]JANET DUNHAM 193-7582Ptgudk-Famjz[address] [place] [address] [employer] Ewuz42-56-6513 17:40-0400Heart rate79 /minFRPRITESH DUNHAM 598-9790Exlhre-Obswy[address] [place] [address] [employer] Fcgy62-26-8270 17:40-8136UbD8% (BldA) [Mass fraction]97 %JANET DUNHAM 180-0216Cvtvhn-Ojmll[address] [place] [address] [employer] Lihv60-59-8695 17:40-0400Systolic blood mm[Hg]JANET DUNHAM 759-9937Dainhv-Buqgg[address] [place] [address] [employer] Liia48-67-7685 11:42-0400Blood Pressure LocationScott KAPLE 711-3845Pnlypq-ZjpjwThe [facility] Of [facility]04-05-2024 11:42-0400Body izhpmalzpiq93.06 [degF]Penelope CASAS 208-6417Kowtph-KyqwvThe [facility]04-05-2024 11:42-0400Diastolic blood zrhecsml69 mm[Hg]Penelope CASAS 785-5781Fswayr-RrptjThe [facility] Of [facility]04-05-2024 11:42-0400Heart rate72 /minScott KAPLE 372-4718Dvpfch-Kmdjq[address] [place], [place] 6234304-05-2024 11:42-0400Respiratory rate16 /minScott KAPLE 666-1176Iflnct-XfbyvThe [facility]04-05-2024 11:42-8091BmQ0% (BldA) [Mass fraction]99 %Penelope CASAS 285-8940Tjnips-LusotThe [facility] Of [facility]04-05-2024 11:42-0400Systolic blood svdtgpho305 mm[Hg]Penelope CASAS 505-2091Uqwkrc-UwctvThe [facility] Of [facility]02-16-2024 14:05-0500Body bxwbof422.7 Jerry Calix MD Work Phone: [facility]02-16-2024 14:05-0500Body temperature 97.39 [degF]Kristofer Calix MD Work Phone: [facility]02-16-2024 14:05-0500Body aqkjys789.1 kgKristofer Calix MD Work Phone: [place] [address]-16-2024 14:05-0500Diastolic blood oviiiurc54 mm[Hg]Kristofer Calix MD Work Phone: [facility]02-16-2024 14:05-0500Heart rate87 /min Kristofer Calix MD Work Phone: [facility]02-16-2024 14:05-0500Respiratory rate 16 /minKristofer Calix MD Work Phone: [facility]02-16-2024 14:05-2654LpQ7% (BldA) [Mass fraction]95 %Kristofer Calix MD Work Phone: [facility]02-16-2024 14:05-0500Systolic blood vpobikpk030 mm[Hg]Kristofer Calix MD Work Phone: [facility]01-26-2024 11:11-0500Blood Pressure LocationScott KAPLE 370-6939Lzzwqs-Goryt[address] [place], [place] 6234301-26-2024 11:11-0500Body xeuetmhnlvi37.7 [degF]Penelope KAPLE [address] [place], [place] 1383201-26-2024 11:11-0500Diastolic blood vxkjnlyg13 mm[Hg]Penelope KAPLE 517-1116Tmcusk-Ymqgs[address] [place], [place] 6234301-26-2024 11:11-0500Heart rate76 /minScott KAPLE 328-5179Lblris-Vyely[address] [place], [place] 6234301-26-2024 11:11-0500Respiratory rate18 /minScott KAPLE 679-9564Rrmpwz-ZxrvuThe [facility]01-26-2024 11:11-3260XkC3% (BldA) [Mass fraction]98 %Penelope KAPLE 891-3246Ixeaxc-UpmgmThe [facility]01-26-2024 11:11-0500Systolic blood dpvqydea245 mm[Hg]Penelope KAPLE 187-5726Yiltnu-Zvbzw[address] [place], [place] 6234310-19-2023 09:41-0400Blood Pressure LocationScott KAPLE 065-0960Wkeggm-Rhebk[address] [place], [place] 6234310-19-2023 09:41-0400Body qqwtqnhleds35.42 [degF]Penelope KAPLE [address] [place], [place] 1383210-19-2023 09:41-0400Diastolic blood odkmyorx61 mm[Hg]Penelope KAPLE [address] [place], [place] 1383210-19-2023 09:41-0400Heart rate80 /minScott KAPLE [address] [place], [place] 1383210-19-2023 09:41-0400Respiratory rate18 /minScott KAPLE [address] [place], [place] 1383210-19-2023 09:41-2002GkH6% (BldA) [Mass fraction]98 %Penelope STEPHANILE [address] [place], [place] 1383210-19-2023 09:41-0400Systolic blood ijgosxow964 mm[Hg]Penelope STEPHANILE [address] [place], [place] 1383206-23-2023 09:44-0400Blood Pressure LocationScott KAPLE [address] [place], [place] 1383206-23-2023 09:44-0400Body snofctvegln98.24 [degF]Penelope STYLESLE [address] [place], [place] 1383206-23-2023 09:44-0400Diastolic blood lchszrun06 mm[Hg]Penelope STEPHANILE [address] [place], [place] 1383206-23-2023 09:44-0400Heart rate88 /minScott KAPLE [address] [place], [place] 1383206-23-2023 09:44-0400Respiratory rate18 /minScott KAPLE [address] [place], [place] 1383206-23-2023 09:44-4498MhE3% (BldA) [Mass fraction]98 %Penelope STEPHANILE 424-0756Frtzto-WnqqpThe [facility]06-23-2023 09:44-0400Systolic blood yckgtyjg485 mm[Hg]Penelope CASAS 921-2116Pfscqx-LwnakThe [facility]03-30-2023 13:18-0400Body .7 cmVramos Calix MD Work Phone: [facility]03-30-2023 13:18-0400Body temperature 97.5 [degF]Kristofer Calix MD Work Phone: [facility]03-30-2023 13:18-0400Body gasaqy928.78 kgKristofer Calix MD Work Phone: [facility]03-30-2023 13:18-0400Diastolic blood vhjajdcq27 mm[Hg]Kristofer Calix MD Work Phone: [facility]03-30-2023 13:18-0400Heart rate76 /min Kristofer Calix MD Work Phone: [facility]03-30-2023 13:18-0400Respiratory rate 16 /minKristofer Calix MD Work Phone: [facility]03-30-2023 13:18-7197LcS9% (BldA) [Mass fraction]97 %Kristofer Calix MD Work Phone: [facility]03-30-2023 13:18-0400Systolic blood xihqzsoo261 mm[Hg]Kristofer Calix MD Work Phone: [facility]12-22-2022 13:45-0500Body temperature 98.71 [degF]Chair Stew Work Phone: [facility]12-22-2022 13:45-0500Diastolic blood uwtjmysx57 mm[Hg]Chair Stew Work Phone: [facility]12-22-2022 13:45-0500Heart rate85 /min Chair Stew Work Phone: [facility]12-22-2022 13:45-6701VgJ9% (BldA) [Mass fraction]97 %Chair Stew Work Phone: [facility]12-22-2022 13:45-0500Systolic blood bzonaixj802 mm[Hg]Chair Stew Work Phone: [facility]12-07-2022 16:27-0500Diastolic blood dloprxmk96 mm[Hg]Chair Stew Work Phone: [facility]12-07-2022 16:27-0500Heart rate84 /min Chair Stew Work Phone: [facility]12-07-2022 16:27-0500Respiratory rate 18 /minChair Stew Work Phone: [facility]12-07-2022 16:27-0112LkN5% (BldA) [Mass fraction]96 %Chair Stew Work Phone: [facility]12-07-2022 16:27-0500Systolic blood vomcefvo648 mm[Hg]Chair Stew Work Phone: [facility]11-28-2022 14:20-0500Body .7 cmVramos Calix MD Work Phone: [facility]11-28-2022 14:20-0500Body temperature 97.39 [degF]Kristofer Calix MD Work Phone: [facility]11-28-2022 14:20-0500Body ndxwno288.23 kgKristofer Calix MD Work Phone: [place] [address]-28-2022 14:20-0500Diastolic blood ozabtgqk00 mm[Hg]Kristofer Calix MD Work Phone: [facility]11-28-2022 14:20-0500Heart vwkb077 /minKristofer Calix MD Work Phone: [place] [address]-28-2022 14:20-0500Respiratory rate 16 /minKristofer Calix MD Work Phone: [facility]11-28-2022 14:20-4580VrL5% (BldA) [Mass fraction]97 %Kristofer Calix MD Work Phone: [facility]11-28-2022 14:20-0500Systolic blood mm[Hg]Kristofer Calix MD Work Phone: [facility]10-03-2022 11:46-0400Body ykpatj001.7 cmVramos Calix MD Work Phone: [facility]10-03-2022 11:46-0400Body temperature 97.2 [degF]Kristofer Calix MD Work Phone: [facility]10-03-2022 11:46-0400Body zurrjk298.42 kgKristofer Calix MD Work Phone: [facility]10-03-2022 11:46-0400Diastolic blood zhknwnop13 mm[Hg]Kristofer Calix MD Work Phone: [facility]10-03-2022 11:46-0400Heart rate88 /min Kristofer Calix MD Work Phone: [facility]10-03-2022 11:46-0400Respiratory rate 16 /minKristofer Calix MD Work Phone: [facility]10-03-2022 11:46-8230QsI4% (BldA) [Mass fraction]99 %Kristofer Calix MD Work Phone: [facility]10-03-2022 11:46-0400Systolic blood pwejnumk467 mm[Hg]Kristofer Calix MD Work Phone: [facility]04-22-2022 10:46-0400Blood Pressure [facility] 554-7315Qkoyyc-PxoxxLouis [facility] 04-22-2022 10:46-0400Diastolic blood ueqfdfrd81 mm[Hg] PERNELL SIDELL 062-7423Yhceak-CvdkgLouis [facility] 04-22-2022 10:46-0400Heart rate96 /minDERIK SIDELL 225-1961Lmomqr-YzygaLouis Stokes [facility] 04-22-2022 10:46-0402VeM7% (BldA) [Mass fraction]99 % PERNELL SIDELL 620-3736Glfbcw-TolksLouis [facility] 04-22-2022 10:46-0400Systolic blood opxlrtgt209 mm[Hg] PERNELL SIDELL 308-7563Zmqdho-TytcyLouis [facility] Encounters Encounter DateEncounter TypeCare ProviderFacilityStart: 02-16-2025 End: 13-91-1318Ggudci consultation new/estab patient 80 Héctor Callahan MD MPH Work Phone: [facility] CenterComment on above:Antiphospholipid syndrome (Primary Dx); Antiphospholipid syndrome complicating , antepartum; History of CVA (cerebrovascular accident); Coordination of complex care; 29 weeks gestation of pregnancyStart: 02-16-2025 End: 19-95-8977nkrfmnwnqlEHMCK REDDY AMBATIParkview Health Bryan Hospitaltart: 02-10-2025 End: 00-40-9814Hfvhzrtsu encounterAnnita WELLS Work Phone: [phone]-Ocxmi Medicine at [facility] Start: 02-09-2025 End: 23-23-4828wubnzsdyptJWJIX FAZIONot AvailableStart: 02-09-2025 End: 26-11-6199Iqsgjp outpatient visit 15 minutesCorey Montez DO Work Phone: noms Piyush OBGYNComment on above:Third trimester (HHS-HCC); 28 weeks gestation of (HHS-HCC); Anemia complicating childbirth (HHS-HCC); Anticoagulant long-term use; Antiphospholipid antibody positive; Blood pressure elevated without history of HTN; Coagulation defect, unspecified (HHS-HCC)Start: 02-06-2025 End: 26-80-7563toehyymbylCMSOJZKQ P DOCHEVAParkview Health Bryan Hospitaltart: 02-06-2025 End: 46-77-5891Jtagfc outpatient visit 25 minutesMukul Noyola MD Work Phone: [phone]-Xxdtf Medicine at [facility] Comment on above:27 weeks gestation of (Primary Dx); Multigravida of advanced maternal age in third trimester; Gestational diabetes mellitus (GDM) in second trimester controlled on oral hypoglycemic drug; Antiphospholipid syndrome complicating , antepartum; Antiphospholipid syndromeStart: 02-05-2025 End: 74-97-9556jimpsjcbcnYQGTZNorth [facility] Center Ambulatory PPGStart: 02-03-2025 End: 46-25-4391lvypzqxhpwOihxr R FAZIOFacility:FTMCStart: 01-19-2025 End: 96-91-9252codhlkomocGVGTT FAONot AvailableStart: 01-19-2025 End: 86-06-8849Dpjsen outpatient visit 15 minutesDataguise Work Phone: NOIV Piyush OBGYNComment on above:Second trimester (HHS-HCC); 25 weeks gestation of ([facility]-HCC); Gestational diabetes mellitus (GDM), antepartum, gestational diabetes method of control unspecified([facility]); Anticoagulant long-term use; Antiphospholipid antibody positive; Antiphospholipid antibody syndrome ([facility]-HCC)Start: 09-31-8438dgyydidldbLkatx R FAZIOFacility:FTMCStart: 01-13-2025 End: 56-95-4689Gkvpak outpatient visit 25 minutesRoxana Smith PA-C Work Phone: [phone]-Yggoj Medicine at [facility] Comment on above:Gestational diabetes mellitus (GDM) in second trimester controlled on oral hypoglycemic drug (Primary Dx); Antiphospholipid syndrome; Other specified hypothyroidism; Antiphospholipid syndrome complicating , antepartumStart: 01-13-2025 End: 87-86-9451mhziipsdljTJOPMEJ E LAVOYProMedica Highlands HospitalStart: 01-09-2025 End: 35-92-9549Dfzfobtnt encounterMukul Noyola MD Work Phone: [phone]-Wdmfn Medicine at [facility] Comment on above:Antiphospholipid syndrome (Primary Dx)Start: 01-07-2025 End: 56-44-4244Rblcrfbqw encounterJacque Pat RNMaternal- Medicine at [facility] Hospitaltart: 01-05-2025 End: 41-93-1712cspqncuevyLIOTG FAZIONot AvailableStart: 01-05-2025 End: 17-60-2489Utrkcc outpatient visit 15 minutesCorey Montez DO Work Phone: NOQD Reardan OBGYNComment on above:Second trimester ([facility] 23 weeks gestation of ([facility]); Thyroid disease ; Gestational diabetes mellitus (GDM), antepartum, gestational diabetes method of control unspecified([facility]); Multigravida of advanced maternal age in second trimester ([facility]); H/O loss; Lightheaded; DizzinessStart: 01-05-2025 End: 29-23-5910Xaurgp flowsheetCorey Montez DO Work Phone: NOSL Piyush OBGYNStart: 01-05-2025 End: 23-75-5960Lngxbv flowsheetCorey Montez DO Work Phone: noms Reardan OBGYNStart: 01-05-2025 End: 68-66-9360Brvquuqaoahjq procedureBrofrancis Bi RNMaternal- Medicine at [facility] CenterComment on above:Multigravida of advanced maternal age in second trimester (Primary Dx); Antiphospholipid syndrome complicating , antepartum; Gestational diabetes mellitus (GDM) in second trimester controlled on oral hypoglycemic drug; AMA (advanced maternal age) multigravida 35+, second trimester; Hypothyroidism, unspecified type; History of stroke; History of loss in prior , currently in second trimester; Hypothyroidism affecting in second trimester; Family history of autism; HyponatremiaStart: 01-01-2025 End: 48-16-7763Zolyux consultation new/estab patient 80 Margaux Noyola MD Work Phone: [facility] Medicine [place]Comment on above: 22 weeks gestation of (Primary Dx); Antiphospholipid syndrome complicating , antepartum; History of stroke; History of loss in prior , currently in second trimester; Gestational diabetes mellitus (GDM) in second trimester controlled on oral hypoglycemic drug; Multigravida of advanced maternal age in second trimester; Hypothyroidism affecting in second trimester; Family history of autism; HyponatremiaStart: 01-01-2025 End: 97-06-3443Wxnyae Simon Warren [employer] [facility] [place] Comment on above:Multigravida of advanced maternal age in second trimester (Primary Dx); Antiphospholipid syndrome complicating , antepartum; Gestational diabetes mellitus (GDM) in second trimester controlled on oral hypoglycemic drug; Insulin controlled gestational diabetes mellitus (GDM) in second trimester; AMA (advanced maternal age) multigravida 35+, second trimester; Hypothyroidism, unspecified typeStart: 12-26-2024 End: 69-69-7902Xfcjwo Ty Noyola MD Work Phone: [facility] LaborComment on above: Gestational diabetes mellitus (GDM) in second trimester controlled on oral hypoglycemic drug (Primary Dx)Start: 12-23-2024 End: 60-31-1296Rgpvubp encounter procedureKatherine Negrete APRN.CNP Work Phone: Hematology/OncologyStart: 12-23-2024 End: 76-83-2297xgakqmxudjLdwju Martinez APRN.CNP Work Phone: Hematology/OncologyComment on above:Antiphospholipid antibody positive (Primary Dx); Iron deficiency anemia secondary to blood loss (chronic); Vitamin D deficiency; Primary hypercoagulable state (HCC)Start: 12-17-2024 End: 17-83-6541bxgphtkmisYYADGTIWAcuteCare Health System HospitalStart: 12-17-2024 End: 64-70-9907Yxlnjh outpatient visit 25 minutesAlisa Saba APRN-COUNCILOR Work Phone: [phone]-Eijkj Medicine at [facility] Comment on above:Gestational diabetes mellitus (GDM) in second trimester controlled on oral hypoglycemic drug (Primary Dx)Start: 12-17-2024 End: 22-36-2532yrhcyiuvdqVVYKVRGD [facility] Medical Centertart: 12-16-2024 End: 80-46-6548Etxeytcoc Result EncounterCorey Montez DO Work Phone: noms External Department UnsolicitedStart: 12-16-2024 End: 80-66-8775Rvhqdjicx Result EncounterCorey Montez DO Work Phone: noms External Department UnsolicitedStart: 12-12-2024 End: 77-87-2656Nxsoxshgl encounterDenikijacinta Dominguezavery WELLS Work Phone: [phone]-Pdcpb Medicine at [facility] Start: 12-11-2024 End: 29-76-2965Zupzal flowsheetCorey Montez DO Work Phone: noms Piyush OBGYNStart: 12-11-2024 End: 10-64-7843Bvqigt flowsheetCorey Montez DO Work Phone: noms Reardan OBGYNStart: 12-11-2024 End: 22-70-0136Xahqdomge Result EncounterCorey Montez DO Work Phone: noms External Department UnsolicitedStart: 12-11-2024 End: 54-33-3366bbjwqweataCEELA FAZIONot AvailableStart: 12-11-2024 End: 51-30-0177Drwist outpatient visit 15 minutesCorey Montez DO Work Phone: NOMS Reardan OBGYNComment on above:19 weeks gestation of ([facility]); Second trimester ([facility]); Thyroid disease ; Multigravida of advanced maternal age in second trimester ([facility]); Gestational diabetes mellitus (GDM), antepartum, gestational diabetes method of control unspecified([facility] [place])Start: 12-03-2024 End: [id number] BROGANProUniversity [facility] HospitalStart: 12-03-2024 End: [id number] outpatient visit 25 minutesAlisa Saba APRN-COUNCILOR Work Phone: [phone]-Dttww Medicine at [facility] Comment on above:Insulin controlled gestational diabetes mellitus (GDM) in second trimester (Primary Dx)Start: 12-03-2024 End: [id number] encounterAnni Abreu CMAMaternal- Medicine at [facility] Hospitaltart: 11-20-2024 End: 68-96-5220Rhozio flowsheetCorey Montez DO Work Phone: noms BCP OBStart: 11-20-2024 End: 78-87-1141Qrzzyo flowsheetCorey Montez DO Work Phone: noms BCP OBStart: 11-20-2024 End: 86-54-1509tjmmcmlifrZRKOV FAZIONot AvailableStart: 11-20-2024 End: 18-10-8705Cabjfl outpatient visit 15 minutesCorey Montez DO Work Phone: NONR Reardan OBGYNComment on above:Second trimester ([facility]); 16 weeks gestation of ([facility]); Screening, , for anatomic survey ([facility]); Vaginal discharge; Sinus headacheStart: 11-19-2024 End: 46-76-7864dhdurjsenzRlcsyg M Frey RN Work Phone: [phone]-Ztxma Medicine at [facility] Comment on above:Gestational diabetes mellitus (GDM), antepartum, gestational diabetes method of control unspecified(Primary Dx)Start: 11-04-2024 End: 33-13-3205Xmirr Syd Noyola MD Work Phone: [phone]-Kseqt Medicine at [facility] Start: 10-30-2024 End: 53-68-3051Wgyeak flowsheetCorey Montez DO Work Phone: noms BCP OBStart: 10-30-2024 End: 20-60-4447Sokiix flowsheetCorey Montez DO Work Phone: noms BCP OBStart: 10-30-2024 End: 23-23-2259Tekhms outpatient visit 15 minutesCorey Montez DO Work Phone: noms BCP OBComment on above:Second trimester (HHS-HCC); 13 weeks gestation of (HHS-HCC); Thyroid disease ; Multigravida of advanced maternal age in second trimester (HHS-HCC); Gestational diabetes mellitus (GDM), antepartum, gestational diabetes method of control unspecified(HHS-HCC); Elevated glucose tolerance testStart: 10-30-2024 End: 90-77-3875lvjmkeigibXITHK FAZIONot AvailableStart: 10-29-2024 End: 40-17-3203EljztbOalrtmBunny Paz APRN.CNP Work Phone: Hematology/OncologyComment on above:Refill Request Start: 10-28-2024 End: 60-39-0707Xmlkboo encounter procedureKatherine Negrete APRN.CNP Work Phone: Hematology/OncologyStart: 10-28-2024 End: 64-84-7922xkysdfhekfLrtrq Martinez APRN.CNP Work Phone: Hematology/OncologyComment on above:Primary hypercoagulable state (HCC) (Primary Dx); CVA, old, speech/language deficit; Cerebral hyponatremia; Personal history of TIA (transient ischemic attack)Start: 10-28-2024 End: 12-55-0348Xkgeruhdj encounterKatherine Negrete APRN.CNP Work Phone: Cancer Appts MCComment on above:ResultsStart: 10-24-2024 End: 03-49-6502Plkvwjvvn encounterHolly Arsh CHAPARRO Work Phone: Hematology/OncologyComment on above:Lab OrdersStart: 10-20-2024 End: 85-56-6516WahvprUfvhr Abhyankar MD Work Phone: Hematology/OncologyComment on above:Refill Request Start: 10-13-2024 End: 08-26-6972Sysedl Monroe Khan RNMaternal- [facility] at [facility] CenterComment on above:Gestational diabetes mellitus (GDM), antepartum, gestational diabetes method of control unspecified(Primary Dx)Start: 10-06-2024 End: 88-49-7419Kbquwplix Result EncounterCorey Montez DO Work Phone: noms External Department UnsolicitedStart: 10-06-2024 End: 86-78-7628Ugifvrtca Result EncounterCorey Montez DO Work Phone: noms External Department UnsolicitedStart: 10-02-2024 End: 92-76-1646jhyverjnfjCNVGK FAZIONot AvailableStart: 10-02-2024 End: 07-11-4763Nyyoxo outpatient visit 5 minutesNoms Bcp Ob Montez NurseNOMS BCP OBComment on above:GA: 0l3uXvzgi: 09-11-2024 End: 65-81-2902Eedweyhvo Result EncounterCorey Montez DO Work Phone: noms External Department UnsolicitedStart: 09-11-2024 End: 24-16-7961Tfvmommok Result EncounterCorey Montez DO Work Phone: noms External Department UnsolicitedStart: 09-09-2024 End: 23-26-4111ovpavckpnzZsnwm A KAPLEFacility:Val PCStart: 09-09-2024 End: 40-96-7663Enyhajh encounter procedureScomike CASAS [phone]-CoajtPremier Health Atrium [facility] Start: 09-07-2024 End: 98-27-8265pekjtgoqzmFdfwk M. DempseyFacility:GIL NorwalkStart: 09-02-2024 End: 27-21-1282Bfcophypp encounterNatmurphy Johnson RNHematology/OncologyComment on above:Patient UpdateStart: 08-26-2024 End: 75-26-3956Iqwhjjlwp encounterKristofer Calix MD Work Phone: Hematology/OncologyComment on above:Lab OrdersStart: 08-23-2024 End: 58-44-6866qccunyyifnAufhm R FAZIOFacility:FTMCStart: 08-23-2024 End: 91-21-5168Llajhrr encounter procedureCorecarmen HERRMANN [facility] Start: 07-25-2024 End: 22-15-0333ZcnocqVpnet Abhyankar MD Work Phone: Hematology/OncologyComment on above:Refill Request Start: 07-24-2024 End: 82-87-4668Gublin flowsheetCorey Montez DO Work Phone: noms BCP OBStart: 07-24-2024 End: 17-31-7618Ptqqiq flowsheetCorey Montez DO Work Phone: NOMS BCP OBStart: 07-24-2024 End: 07-95-4706wbjpbrupvpHYXHO FAZIONot AvailableStart: 07-24-2024 End: 80-30-1475Ipprwn outpatient visit 15 minutesCorey Montez DO Work Phone: noms BCP OBComment on above:Irregular menstrual cycle Start: 07-09-2024 End: 48-57-3340bimyysrzyuTjjfakx A VisciFacility:FTMCStart: 07-09-2024 End: 94-73-3237Ihhluvk encounter Momo [place] [facility] Start: 07-08-2024 End: 39-82-5159Kay-admission Reshma [place] [facility] Start: 07-07-2024 End: 95-05-2471bugicltldiGbxvv A KAPLEFacility:Val PCStart: 06-30-2024 End: 30-82-2694immbmhwmonSgpgb A KAPLEFacility:Val PCStart: 06-30-2024 End: 05-06-2278Daccmwh encounter procedureScott Cecily CASAS [phone]-EifuzPremier Health Atrium [facility] Start: 06-23-2024 End: 60-85-0506Rffoxk outpatient visit 15 minutesCorey Montez DO Work Phone: noms BCP OBComment on above:Vaginal bleeding; Dizziness; Abnormal TSH; Vaginal discharge; Pelvic pain in femaleStart: 06-23-2024 End: 28-22-5121abkhawiqynNTMYG FAZIONot AvailableStart: 06-23-2024 End: 76-99-6872Dvponcbk Result EncounterCorey Montez DO Work Phone: noms External Department UnsolicitedStart: 06-23-2024 End: 39-12-0796Qqnsxuzq Result EncounterCorey Montez DO Work Phone: noms External Department UnsolicitedStart: 06-19-2024 End: 36-36-4386tmunnjkvicIKBFVT R CIERSEZWSKIFacility:FM MilanStart: 06-19-2024 End: 63-70-7057Bihgshm encounter procedureJESSICA BACA [phone]-ShdvcPremier Health [facility] [place] Start: 06-12-2024 End: 75-02-1805pirvmyevisSmwnd R FAZIOFacility:FTMCStart: 06-12-2024 End: 79-67-0247Biskrpq encounter procedureCorey Spencer HERRMANN [facility] Start: 06-09-2024 End: 21-30-9171vcchmefqwiTsqpp A KAPLEFacility:Val PCStart: 06-09-2024 End: 42-18-3137Mckskio encounter procedureCorey Spencer HERRMANN [facility] Start: 06-06-2024 End: 55-06-2900lwivutexzgXFFLWT A BLAKEFacility:FT BellevueStart: 06-02-2024 End: 04-56-5346jgyesprymuYUPAZ FAZIONot AvailableStart: 06-02-2024 End: 23-96-6472Lirzii outpatient visit 15 minutesCorey Montez Work Phone: NOPR BCP OBComment on above:Follow-up visit after miscarriage; Abnormal TSH; History of thyroid diseaseStart: 05-28-2024 End: 14-84-1526Kdypbdask encounterKristofer Calix MD Work Phone: Cancer Appts MCStart: 05-28-2024 End: 95-49-0853Rutoyb outpatient visit 25 minutesKristofer Calix MD Work Phone: Hematology/OncologyComment on above:Primary hypercoagulable state (HCC) (Primary Dx); CVA, old, speech/language deficit; Iron deficiency anemia secondary to blood loss (chronic); Vitamin D deficiency; Antiphospholipid antibody syndrome (HCC)Start: 05-28-2024 End: 80-37-5763tsbpwxujxuJIWHD A KAPLEFacility:Summa Healthtart: 67-82-4606eyetjvtrhdRspdx A KAPLEFacility:Val PCStart: 05-14-2024 End: 81-96-9426Hviqeumze encounterRachael Johnson RNHematology/OncologyComment on above:Patient UpdateStart: 05-10-2024 End: 66-50-0223Zoumsgxqw Result EncounterCorey Montez DO Work Phone: noms External Department UnsolicitedStart: 05-10-2024 End: 29-89-3074Ympzfkmnq Result EncounterCorey Montez DO Work Phone: noms External Department UnsolicitedStart: 05-10-2024 End: 32-31-4929dexznyfxnyEinjr FazioFiChildren[facility] Work Phone: Start: 05-10-2024 End: 76-69-3240Uicfwyup ReferredCorey Montez DO Work Phone: [facility]-LAB Path Spec Piyush HospStart: 05-06-2024 End: 55-33-1876psdmtmpklnSOFMI FAZIONot AvailableStart: 05-06-2024 End: 30-41-5047Tyybqq flowsheetCorey Montez DO Work Phone: noms BCP OBStart: 05-06-2024 End: 59-37-4341Jxjiqx flowsheetCorey Montze DO Work Phone: noms [facility] OBStart: 05-06-2024 End: 91-14-7811fueghkgxiwLUXFU FAZIONot AvailableStart: 05-06-2024 End: 71-03-2303Qckime outpatient visit 15 minutesCorey Montez DO Work Phone: noms BCP OBComment on above:14 weeks gestation of ; Second trimester ; Confirm viability with history of miscarriage, ultrasoundStart: 04-28-2024 End: 97-96-8768OmldkaUspfq Abhyankar MD Work Phone: Hematology/OncologyComment on above:Refill Request Start: 04-12-2024 End: 55-54-9708Knstjjafd Result EncounterCorey Montez DO Work Phone: noms External Department UnsolicitedStart: 04-12-2024 End: 58-45-5346Bglienwva Result EncounterCorey Montez DO Work Phone: [facility] External Department UnsolicitedStart: 04-04-2024 End: 56-60-7316glvqpusvepUJOLD FAZIONot AvailableStart: 04-04-2024 End: 47-44-8729Ynruod outpatient visit 5 minutesNoms Bcp Ob Montez NurseNOMS BCP OBComment on above:GA: 3l0cNfilg: 03-01-2024 End: 52-07-3503pblayfmxiaNcfrb R FAZIOFacility:FTMCStart: 03-01-2024 End: 28-94-6979Mdvenks encounter procedureCorey R MONTEZ [facility] Start: 02-27-2024 End: 73-78-6384txvarahykfUdkqt R FAZIOFacility:FTMCStart: 02-27-2024 End: 26-06-8068Ntcoxnvxm encounterNatalimaxim Johnson RNHematology/OncologyComment on above:Patient QuestionStart: 02-25-2024 End: 93-39-0750rrosudbqczFzozk R FAZIOFacility:FTMCStart: 02-25-2024 End: 33-78-7081Huaddrh encounter procedureCorey R MONTEZ [facility] Start: 02-23-2024 End: 86-40-7900luipegxxurOblkb A KAPLEFacility:FTMCStart: 02-23-2024 End: 91-85-6410Gdamyjq encounter procedureCorey R MONTEZ [facility] Start: 02-05-2024 End: 40-66-5676vbjajxymbvHqfnz A KAPLEFacility:Val PCStart: 02-05-2024 End: 94-89-9207Ncmemqt encounter procedureScott A PRAVEEN [phone]-KqaatPremier Health Atrium [facility] Start: 02-05-2024 End: 29-89-9242Bgvu adult monitoring check Zach CASAS [phone]-RvshjPremier Health Atrium [facility] Start: 02-02-2024 End: 52-31-1230oryawxhcnyJqxdnp GucatiemelvuFacility:CC NorwalkStart: 02-02-2024 End: 16-42-6830Belilir encounter procedurePreeti Luila [phone]-GqqyyPremier Health Atrium [facility] Start: 33-01-6350kjqptkopueXzrme A KAPLE Facility:[place] PCStart: 01-24-2024 End: 30-57-4627VsdoiaBdktt Abhyankar MD Work Phone: Hematology/OncologyComment on above:Refill Request Start: 01-02-2024 End: 89-04-2381Uyqgdhpmd encounterKristofer Calix MD Work Phone: Cancer Appts MCComment on above:ResultsStart: 01-02-2024 End: 55-78-4936Zncdwn outpatient visit 15 minutesKristofer Calix MD Work Phone: Hematology/OncologyComment on above:Iron deficiency anemia secondary to blood loss (chronic) (Primary Dx); Vitamin D deficiency; Malaise and fatigueStart: 12-17-2023 End: 26-57-2656Qulrtbuaq encounterNatalimaxim Johnson RNHematology/OncologyStart: 12-06-2023 End: 55-02-0455xyownuomyuHtpwlkaff L ClarkFacility:FTMCStart: 12-06-2023 End: 02-68-3650Jatotsp encounter Contreras Saba [facility] Start: 41-83-0644jbqkearvweLmfww A KAPLE Facility:[facility] PCStart: 11-29-2023 End: 87-93-3504ecvdukxepbRheka Abhyankar MD Work Phone: Hematology/OncologyComment on above:Iron infusion side effects?Refill RequestIron deficiency anemia of (Primary Dx); Iron deficiency anemia secondary to blood loss (chronic)Start: 11-22-2023 End: 63-67-0574vyrvltbmldKcwpg 12 [employer] Work Phone: Hematology/OncologyComment on above:Iron deficiency anemia of (Primary Dx); Iron deficiency anemia secondary to blood loss (chronic)Start: 11-15-2023 Telephone encounterFinancial Navigator Delgado Work Phone: Hematology/OncologyStart: 11-15-2023 End: 94-21-9698eizxpulbitQzhid [address] Work Phone: Hematology/OncologyComment on above:Iron deficiency anemia of (Primary Dx); Iron deficiency anemia secondary to blood loss (chronic)Start: 11-09-2023 End: 40-46-3290Pxddnmo encounter procedureMonica Saba [phone]-ZlhczPremier Health At[facility] Start: 11-09-2023 End: 18-75-9752Iestir WorkLori Penelope FLYNNematology/OncologyStart: 11-05-2023 Telephone encounterKristofer Calix MD Work Phone: Cancer Appts MCComment on above:AppointmentStart: 10-23-2023 End: 18-51-6205nerquftttcSwacgar Grace MisslerFacility:Val PCStart: 10-23-2023 End: 46-46-2654Erjcnuj encounter procedureLourdes Garber [phone]-IenmgPremier Health [facility] Start: 09-28-2023 End: 68-81-7480Ktpqovuof department patient Marta Uribe [facility] Start: 09-28-2023 End: 62-67-6836cippmqbrgoVQMarcelino DUNHAMFacility:GIL Pickardtart: 09-28-2023 End: 26-16-9299Tlednfg encounter procedureJANET DUNHAM [phone]-WezjgPremier Health At[facility] Start: 06-61-7490Rieibddki encounterKristofer Calix MD Work Phone: Cancer Appts MCComment on above:Appointment RescheduledStart: 09-21-2023 End: 06-96-8596sufqubdfrdSeyepVernell Calix MD Work Phone: Hematology/OncologyComment on above:Iron deficiency anemia secondary to blood loss (chronic) (Primary Dx)Start: 09-21-2023 End: 49-00-9713Xpewuleqbojd consultation with Song Calix MD Work Phone: Hematology/OncologyStart: 08-03-2023 End: 21-18-1051lwlvoaayubUkdvr A KAPLEFacility:Val PCStart: 08-03-2023 End: 58-15-7017Yhkojiy encounter procedureScomike CASAS [phone]-IrcotPremier Health Atrium [facility] Center [facility] Start: 06-29-2023 End: 47-65-8729dqifcnsyofVueib A KAPLEFacility:Val PCStart: 06-29-2023 End: 11-64-8213Vfrbahn encounter procedureScomike CASAS [phone]-NjbiuPremier Health Atrium [facility] Center [facility] Start: 83-87-3993hneacgoqsuJirkktd Powell rail project engineer/OncologyComment on above:Lab results/recommendationsStart: 06-19-2023 E-mail encounter from Jose Carlos Johnson RNSANDUSKYStart: 06-15-2023 End: 97-82-8020Ugsewh outpatient visit 25 minutesKristofer Calix MD Work Phone: Hematology/OncologyComment on above:Vitamin D deficiency (Primary Dx); Hypercalcemia; Iron deficiency anemia secondary to blood loss (chronic)Start: 06-15-2023 Telephone encounterKristofer Calix MD Work Phone: Cancer Appts MCComment on above:ResultsStart: 33-63-5790Njrsreqlw encounterKristofer Calix MD Work Phone: Hematology/OncologyComment on above:Lab OrdersStart: 10-48-5245Iyncabpnk encounterKristofer Calix MD Work Phone: Cancer Appts MCComment on above:Future Appointment Start: 05-31-2023 End: 46-49-3953trmsadlcrpDulci Abhyankar MD Work Phone: Hematology/OncologyComment on above:Primary hypercoagulable state (HCC) (Primary Dx); CVA, old, speech/language deficit; Hypercalcemia; Vitamin D deficiency; Iron deficiency anemia secondary to blood loss (chronic); Malaise and fatigueStart: 05-31-2023 End: 77-94-9573Pwxlwnclamny consultation with Song Calix MD Work Phone: SANDUSKYStart: 05-25-2023 End: 23-42-4138atggxkmsqjZztwj A KAPLEFacility:Val PCStart: 05-25-2023 End: 91-53-4048Lrdpqok encounter procedureScomike CASAS [phone]-AwvzmPremier Health At[facility] Start: 05-01-2023 End: 89-54-5164etsrvwtngdXbbenGonzález Guzmánity:FTMCStart: 04-27-2023 End: 75-76-2876Ucl Drop offScott A KAPLE [facility] Start: 04-27-2023 End: 54-80-7146mrjsgebxpoGlgfr A KAPLEFacility:FTMCStart: 04-25-2023 End: 92-25-3492mdutmwvhdrDrdf L SchwabFacility:FT BellevueStart: 03-19-2023 End: 38-48-6825jxqtaagphhTmodlVernell Calix MD Work Phone: Hematology/OncologyComment on above:Primary hypercoagulable state (HCC) (Primary Dx); Iron deficiency anemia secondary to blood loss (chronic); Vitamin D deficiency; CVA, old, speech/language deficit; Antiphospholipid antibody syndrome (HCC)Start: 03-19-2023 End: 44-60-9689Jzsqlwuzatts consultation with Song Calix MD Work Phone: SANDUSKYStart: 02-15-2023 End: 35-92-5609xnjgtkyzehIgsvf A KAPLEFacility:Val PCStart: 02-15-2023 End: 57-08-4374Taoucqo encounter procedureScott A PRAVEEN [phone]-YquxcPremier Health [facility] Start: 01-33-5731uwpozekfpoYucca A KAPLE Facility:Val PCStart: 12-26-2022 End: 82-06-8958wfaezdolelHsureua Grace MisslerFacility:Val PCStart: 12-26-2022 End: 37-42-5941Xopibvo encounter procedureLourdes Garber [phone]-FjmbePremier Health Atrium [facility] Start: 12-22-2022 End: 92-47-9694ikdspfjcitMxdpyVernell Calix MD Work Phone: Hematology/OncologyComment on above:Primary hypercoagulable state (HCC) (Primary Dx); Iron deficiency anemia of ; Iron deficiency anemia secondary to blood loss (chronic); Vitamin D deficiencyStart: 12-22-2022 End: 67-14-4891Ofwsdjtgczzx consultation with Song Calix MD Work Phone: SANDUSKYStart: 05-55-0590Firhfddtm encounterKristofer Calix MD Work Phone: Cancer Appts MCComment on above:AppointmentStart: 10-20-2022 End: 87-04-4579Kdopqrp encounter procedureSelissa CASAS [phone]-OeyufPremier Health Atrium [facility] Start: 09-28-2022 End: 34-60-8139tukoezwotuCiyso Abhyankar MD Work Phone: Hematology/OncologyComment on above:Primary hypercoagulable state (HCC); CVA, old, speech/language deficit; Cerebral hyponatremiaStart: 09-28-2022 End: 41-20-2870Zsuokgrmclov consultation with Song Calix MD Work Phone: SANDUSKYStart: 09-26-2022 End: 16-28-7783Drlgmye encounter procedureKristofer Calix [facility] Start: 12-81-6087Wvaiqmgwb encounterValeri Yeung RN Hematology/OncologyComment on above:OrdersStart: 09-05-2022 End: 52-76-6226Adzrltd encounter procedureCorey Spencer HERRMANN [facility] Start: 08-07-2022 End: 42-34-3648Bioaask encounter procedureCorecarmen HERRMANN [facility] Start: 07-27-2022 End: 76-35-8657Bkgtop outpatient visit 25 minutesKristofer Calix MD Work Phone: Hematology/OncologyComment on above:Primary hypercoagulable state (HCC) (Primary Dx); Iron deficiency anemia secondary to blood loss (chronic); CVA, old, speech/language deficitStart: 19-89-2161KxymsvOaqehSerene Calix MD Work Phone: Hematology/OncologyComment on above:Refill Request Start: 05-16-2022 End: 38-38-9401fnhptehofbHZ WILTON FAZIOFacility:N7Kytpn: 05-10-2022 End: 54-48-1141zvhqaqynmnOW WILTON FAZIOFacility:E8Srfep: 05-08-2022 End: 66-64-8993Dsodmvvwen and management of inpatientDR KALPANA THOMAS Facility:S0Cdyyd: 05-05-2022 End: 06-11-7235bzxrcfulcoJM GREGORY KARASIKFacility:Q8Dkdjz: 05-01-2022 End: 14-98-9171dibmjcanxwKM WILTON FAZIOFacility:J8Fqhqe: 04-28-2022 End: 98-50-0767bdxfwrscygIS WILTON FAZIOFacility:O4Hqeud: 04-24-2022 End: 21-99-6871yxwouudaakGW KALPANA TOHMASFacility:W4Lahjt: 04-20-2022 End: 34-05-2769jedfoyyuloMixnw [address] Work Phone: Hematology/OncologyComment on above:Iron deficiency anemia secondary to blood loss (chronic) (Primary Dx); Iron deficiency anemia of pregnancyStart: 04-19-2022 End: 65-94-2041anivynqkqiPM WILTON FAZIOFacility:N6Ishmz: 04-14-2022 End: 19-35-6972beamdgcnwyJI WILTON FAZIOFacility:V7Vwiky: 04-07-2022 End: 68-25-4545fwcijuedhtNU WILTON FAZIOFacility:F4Ghtog: 41-58-6337WluucjRkwmo Abhyankar MD Work Phone: Hematology/OncologyComment on above:Refill Request Start: 04-05-2022 End: 00-22-8098ljxajvxusdKfnqe [address] [place] Work Phone: Hematology/OncologyComment on above:Iron deficiency anemia secondary to blood loss (chronic) (Primary Dx); Iron deficiency anemia of pregnancyStart: 58-06-2573Pnjmjijse encounterMeme Gonzalez RNHematology/OncologyComment on above:Appointment; Patient Question; Medication Question; OrdersStart: 03-31-2022 End: 19-85-9397ajzvmktshiIV WILTON FAZIOFacility:I2Rfgyk: 03-27-2022 End: 10-87-5526uflzabtjbkUyfcg Abhyankar MD Work Phone: Hematology/OncologyComment on above:Iron deficiency anemia secondary to blood loss (chronic); Iron deficiency anemia of pregnancyStart: 03-27-2022 End: 12-41-0360Cexddiw encounter Dionicio Calix MD Work Phone: SANDUSKYStart: 35-91-9284Ojstustnc encounterKristofer Calix MD Work Phone: Cancer Appts MCComment on above:ResultsStart: 03-24-2022 End: 65-33-8868hpylofhuppBD WILTON FAZIOFacility:O3Rxjpn: 03-16-2022 End: 19-02-1459xosbhwsmblME WILTON FAZIOFacility:C7Fuown: 02-24-2022 End: 40-68-2425bglfixzwsrDI WILTON FAZIOFacility:C2Siybi: 02-14-2022 End: 50-36-3784wphuoujotyAA WILTON FAZIOFacility:Q4Kkpem: 01-30-2022 End: 13-03-7220fmadhqibruEudrwVernell Calix MD Work Phone: Hematology/OncologyComment on above:Primary hypercoagulable state (HCC) (Primary Dx); CVA, old, speech/language deficit; Antiphospholipid antibody syndrome (HCC); Anemia, unspecified typeStart: 01-30-2022 End: 85-17-7676Jsfsiqf encounter Dionicio Calix MD Work Phone: SANDUSKYStart: 01-24-2022 End: 41-62-8383gumlwpretjNU WILTON FAZIOFacility:V9Pbcks: 01-24-2022 End: 92-07-7148cenkaogmjyPC WILTON FAZIOFacility:Y6Fbvqv: 01-07-2022 End: 29-29-6533ohbqqbeyliJK WILTON FAZIOFacility:V3Ibybw: 45-22-9128FggaxoJunkhtAwilda Pope RN Work Phone: Hematology/OncologyComment on above:Refill Request Start: 12-28-2021 End: 11-13-3095mtgxildoieHM WILTON FAZIOFacility:Y1Vrgzv: 11-21-2021 End: 61-71-6481zdnydlwkkuKNLBKProtestant Deaconess Hospitaltart: 11-21-2021 End: 19-29-0272Yhrsyytkjm hospital visit by Sean Casas Work Phone: stvZ LaboratoryStart: 11-14-2021 End: 82-91-1115Yndegvx encounter procedureSBrown [facility] Start: 12-51-5125mgmmwyubetGU WILTON FAZIOFacility:H1 Start: 10-25-2021 End: 81-89-3865ccunomdufwKF WILTON FAZIOFacility:W9Dafbc: 51-23-3888VnxmiiFicwz Nickelson RNHematology/OncologyComment on above:Refill RequestStart: 09-23-2021 End: 32-48-1653cdclyrvtqgDZ WILTON FAZIOFacility:S9Mmohd: 60-49-9097Amautvnic encounterMeme Easton RNHematology/OncologyComment on above:Medication QuestionStart: 91-99-0843Eswjgeffg encounterMeme Easton rail project engineer/OncologyComment on above:Patient QuestionStart: 09-01-2021 End: 76-01-1732tpxwvmpejtEX WILTON FAZIOFacility:Z5Rklkx: 08-31-2021 End: 70-46-2970Afivtzr encounter procedureSelissa CASAS [facility] Start: 08-29-2021 End: 27-64-5757buzgvxxypwMJ WILTON FAZIOFacility:N3Ujfud: 08-26-2021 End: 57-43-4518mjivsyksmoPD WILTON FAZIOFacility:P4Vgeca: 08-24-2021 End: 29-20-0711nhqmezvitqHZ WILTON FAZIOFacility:B0Glzdw: 30-08-1870Doqfesjgl encounterMeme Easton RNHematology/OncologyComment on above:Patient Question Start: 08-19-2021 End: 32-40-9456Akrecxm encounter procedurePERNELL LONGORIA [facility] Start: 08-19-2021 End: 60-42-7309Nhr Drop offPERNELL LONGORIA [facility] Start: 08-19-2021 End: 65-25-8643Hpgifpo encounter procedurePERNELL LONGORIA [phone]-TrpwgPremier [facility] [place] Start: 39-17-5759Fuobptmsj encounterKristofer Calix MD Work Phone: Cancer Appts MCComment on above:Future Appointment Start: 08-01-2021 End: 62-82-3951Gubcmxh evaluation of patient and reportMa Nurse Delgado Golden Work Phone: Hematology/OncologyComment on above:Infective urethritis (Primary Dx)Start: 07-31-1089Mlihwck encounter procedureHaseeb MorelFacility:[facility] ShaneWellstar [facility] BStart: 73-62-3562Suredpw encounter procedure ERIKA LONDONFacility:[id number]: 05-25-2017 End: 74-99-8746AjxjnhklgjSQARU R [facility] Procedures DateProcedureProcedure DetailPerforming ClinicianStart: 82-84-0536Eowcj dip stick/tablet rgnt non-auto w/o micrscpCorey Montez DO Work Phone: Start: 89-57-4316Uumcb dip stick/tablet rgnt non-auto w/o micrscpCorey Montez DO Work Phone: Start: 11-06-4631Ciazo dip stick/tablet rgnt non-auto w/o micrscpCorey Montez DO Work Phone: Start: 64-97-5067SC OB CERVICAL LENGTHCorey Montez DO Work Phone: Start: 30-63-4357AMD UA (CLEAN/CATCH) MANAGER INTERFACE/MICRO IF IND.Wilton Montez DO Work Phone: Start: 25-07-2293PXY THYROID STIM HORMONECorey Montez DO Work Phone: Start: 90-16-0625Xkrer dip stick/tablet rgnt non-auto w/o micrscpCorey Montez DO Work Phone: Start: 37-71-9925Mrzfk dip stick/tablet rgnt non-auto w/o micrscpCorey Montez DO Work Phone: Start: 99-89-7564Wsddpiy quantitative blood xcpt reagent stripStar Waggoner MD Work Phone: Start: 07-45-2842Wknpt dip stick/tablet rgnt non-auto w/o micrscpCorey Montez DO Work Phone: Start: 97-05-8657Rikpi of thyroid stimulating hormone tshNot In System Ref ProvStart: 40-31-9898Ebwezrwk screenMukul Noyola MD Work Phone: Start: 72-89-4778Ulbw scrn 1+ class nonchromoNot In System Ref ProvStart: 11-96-6237Wfolxdzcva glycosylated x0hBalvxbse Provider ExternalStart: 87-17-8363TCW 1&2 AB/AG SCREEN (P24 AG)Not In System Ref Prov Start: 59-53-6963Qyyt ia hepatitis b surface antigenNot In System Ref ProvStart: 03-39-9386CAGJ AND SCREENNot In System Ref ProvStart: 31-96-4464QUE CBC WITH AUTO DIFFCorey Montez DO Work Phone: Start: 08-19-2527Dcbcm dip stick/tablet rgnt non-auto w/o micrscpCorey Montez DO Work Phone: Start: 28-01-6409ER OB TRANSVAGINALCorey Montez DO Work Phone: Start: 37-85-4762Bbdys test visual color cmprsn methsCorey Montez DO Work Phone: Start: 67-77-2330ESZLMYYAN VAGINITIS (HTRX)Wilton Montez DO Work Phone: Start: 87-33-2259Tknrj dip stick/tablet rgnt non-auto w/o micrscpCorey Montez DO Work Phone: Start: 20-30-9305FFS CBC WITH AUTO DIFFCorey Montez DO Work Phone: Start: 23-26-6457Yckic dip stick/tablet rgnt non-auto w/o micrscpCorey Montez DO Work Phone: Start: 86-21-8212YFG TESTCorey Montez DO Work Phone: Start: 48-72-0048AQF DRUG SCREEN RAPID (URINE)Wilton Montez DO Work Phone: Start: 04-04-2024 End: 75-65-8598Oknld dip stick/tablet rgnt non-auto w/o micrscpCorey Montez DO Work Phone: Start: 16-54-7188Wxmqvnu refused by patient Immunization not carried out because of patient decisionNoms NurseStart: 90-10-0248Vgablfqc of Products of Conception, External ApproachDR WILTONCarmen PATRICKO Start: 41-04-2072Epxn bld gluc mntr dev cleared fda spec home useCcf Provider Start: 78-45-0562Zlzogewiles observation [Identifier] in Cervix by Cyto stain Wilton Herrmann DO Work Phone: Start: 11-21-2021 End: 10-13-7583Ybxtw-fetoprotein serumScanning Provider ExternalStart: 11-21-2021 End: 21-34-3271XAMPRRU STUDY NON-PROMEDICAScanning Provider ExternalStart: 47-76-5918RFKSSBKREHLXH TESTINGTod Mullins MD Work Phone: Start: 45-46-8888Izkvz depression screening assessment Nevin Golden Work Phone: Start: 97-40-8434BCY CULTUREDHRUV PATELStart: 74-10-8773KIEXWVPOR PATELStart: 85-08-0233DZY CELL COUNT WITH DIFFERENTIALDHRUV PATELStart: 95-94-8131FHRHCNC SIMPSON VIRUS PCRDHRUV PATELStart: 77-84-0515HDLAOOE, CSFDHRUV PATELStart: 03-54-3331PZSZYD BASIC PROTEIN, CSFDHRUV PATELStart: 22-27-8897PQXGGLMPUHE BANDINGDHRUV PATELStart: 11-96-0206EEYORUI, CSFDHRUV MONGE Start: 35-14-5746VBPLISR-INRDHRUV PATELStart: 51-51-7744Xykgot puncture lumbar diagnosticDHRUV PATELStart: 11-94-1077JYHSGTUECBKWEBDJ ANTIBODY PANELRUV MONGE Start: 99-46-4114FITWQHNFVIS AB IGG, IGM, IGADHRUV PATELStart: 50-80-7711EVTGRII PATELStart: 84-12-5602AKUJDXSNODHN, SERUMDHRUV PATELStart: 27-11-2644DGTA ARUP 1DHRUV PATELStart: 08-44-9504RHILMBPUKHW PATELStart: 00-83-8460YVARGRLNSMOL PATELStart: 07-84-6550Zhnbai of breastDERIK SIDELL Start: 51-13-2820Jlrqjjlgms of wisdom toothDERIK SIDELL endoscopy for ovarian cysts to drainPERNELL LONGORIA Vaccine refused by patientCOVID-19 vaccine dose declined( Confirmed )PERNELL LONGORIA Plan of Treatment DateCare ActivityDetailAuthorStart: 78-03-7062BIE Vaccine (1 - 1-dose 75+ series)RSV Vaccine (1 - 1-dose 75+ series)[facility]: 13-10-0929Lcxtb BMI ScreeningAdult BMI ScreeningProSt. Mary'[facility] SystemStart: 57-03-4234Pqskwqt ScreeningTobacco ScreeningProSt. Mary'[facility] SystemStart: 76-62-9972Meulmcw ScreeningTobacco ScreeningAultman Alliance [facility] SystemStart: 01-05-2026 End: 43-57-7370UU MFM with or without consultUS MFM with or without consult Imaging Routine Multigravida of advanced maternal age in second trimester Antiphospholipid syndrome complicating , antepartum Gestational diabetes mellitus (GDM) in second trimester controlled on oral hypoglycemic drug AMA (advanced maternal age) hweoaetoodfk82+, second trimester Hypothyroidism, unspecified type History of stroke History of loss in prior , currently in second trimester Hypothyroidism affecting in second trimester Family history of autism Hyponatremia Expected: 01/05/2026 (Approximate), Expires: 01/05/2026[facility] Work Phone: comment on above:Expected: 01/05/2026 (Approximate), Expires: 01/05/2026Start: 98-30-8410Davrk BMI ScreeningAdult BMI Screening [facility] SystemStart: 71-96-5080Pfyadnu ScreeningTobacco Screening [facility] SystemStart: 80-79-6608Rhxtu BMI ScreeningAdult BMI Screening [facility] SystemStart: 03-17-2025 End: 35-93-9330Bomyiydzqnlj consultation with qnzeghg6703/17/2025 8:30 AM EST Telemedicine [facility], A Department of [address] [phone] Sam Callahan MD MPH [address] [address] [place] [address] [facility] Rhe[facility], A Department of [facility]: 03-10-2025 End: 73-00-3412Xsbtcowtrrdo consultation with qtlwxvz6903/10/2025 8:00 AM EST Telemedicine Maternal- Medicine at [facility] [address] [place] [address] Sana Palma MD [address] [place] [address] [facility]: 03-02-2025 End: 13-94-4971Uqoxel-up /03/2025 11:30 AM EST Visit (SP) Office Hematology/Oncology [address] [facility] [address] Katherine Negrete APRN.COUNCILOR [address] [facility] [place] [address] 2 month follow upHematology/OncologyComment on above:2 month follow upStart: 03-02-2025 End: 65-60-9908Aowubfb encounter kjcnirtxu15/03/2025 11:15 AM EST Office Visit [facility] [address] [facility] [place] [place] [address] labNortMcLaren Northern Michigan LaboratoryComment on above:labStart: 02-23-2025 End: 75-94-0266Jzwcodb encounter ytipenvxl85/27/2025 9:00 AM EDT Routine [facility] [address] [place], [phone] Wilton Herrmann DO [address] [place] [address] SHILOH [place] OBGYNStart: 02-18-2025 End: 87-41-8728LXL W Auto Differential panel - BloodCOMPLETE BLOOD COUNT AND DIFFERENTIAL Lab Routine 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) Vitamin D deficiency Primary hypercoagulable state (HCC) Expected: 02/18/2025, Expires: 05/20/2025leveland ClinicComment on above:Expected: 02/18/2025, Expires: 05/20/2025Start: 02-18-2025 End: 87-29-1670Caagjbqqxjjcf metabolic 2000 panel - Serum or PlasmaCOMPREHENSIVE METABOLIC PANEL Lab Routine Antiphospholipid antibody positive Iron deficiency anemiasecondary to blood loss (chronic) Vitamin D deficiency Primary hypercoagulable state (HCC) Expected: 02/18/2025, Expires: 05/20/2025leveland ClinicComment on above:Expected: 02/18/2025, Expires: 05/20/2025Start: 02-16-2025 End: 69-69-7102Zxfkatx encounter procedureProMedica Rheumatology, A Department of [facility] HospitalStart: 65-84-1045Ltzckghdn for malignant neoplasm of cervixNOMS HealthcareStart: 02-09-2025 End: 50-52-3777RR biophysical profile w non stress testUS biophysical profile w non stress test Imaging Routine Third trimester (HHS-HCC) 28 weeks gestation of (HHS-HCC) Anemia complicating childbirth (HHS-HCC) Anticoagulant long-term use Antiphospholipid antibody positive Blood pressure elevated without history of HTN Coagulation defect, unspecified (HHS-HCC) Expected: 02/09/2025 (Approximate), Expires: 08/10/2025 [facility] HealthcareComment on above:Expected: 02/09/2025 (Approximate), Expires: 08/10/2025Start: 02-09-2025 End: 62-24-9037NS for pregnancyUS OB follow up transabdominal approach Imaging Routine Third trimester (HHS-HCC) 28 weeks gestation of (HHS-HCC) Anemia complicating childbirth (HHS-HCC) Anticoagulant long-term use Antiphospholipid antibody positive Blood pressure elevated without history of HTN Coagulation defect, unspecified ([facility]-HCC) Expected: 02/09/2025, Expires: 06/12/2025NOPR HealthcareComment on above:Expected: 02/09/2025, Expires: 06/12/2025Start: 02-09-2025 End: 71-50-7497Qiurcih encounter vimufwggf54/13/2025 10:30 AM EDT Routine NOMJaylan COLVIN [address] [facility] [place] [address] Wilton Herrmann DO [address] [facility] [place] [address] NOMaJylan [place] OBGYNStart: 02-06-2025 End: 06-77-7005Cxbahasipmqq consultation with xyacagi0302/06/2025 2:00 PM EDT Telemedicine Maternal- Medicine at [facility] [address] [place] [phone] Mukul Noyola MD [address] [facility], [address] [place] [address] [facility]: 02-05-2025 End: 35-64-0387Zogzqjd encounter mqczptmuz20/09/2025 1:00 PM EDT Appointment [facility] [place] [address] [facility] [address] [place] [address] Maternal Medicine DelanoStart: 02-01-2025 End: 38-06-9763Qxxh complete W/O contrastEcho complete W/O contrast Echocardiography Routine 22 weeks gestation of Antiphospholipid syndrome complicating , antepartum Multigravida of advanced maternal age in second trimester Expected: 02/01/2025 (Approximate), Expires: 01/01/2026 [facility] Work Phone: comment on above:Expected: 02/01/2025 (Approximate), Expires: 01/01/2026Start: 01-19-2025 End: 20-65-8780Yxzwqoa encounter bujncizme78/22/2025 9:00 AM EDT Routine SHILOH COLVIN [address] [facility] [address] [place], [id number] Wilton Herrmann, [address] [facility] [place] [address] [facility] P[facility] OBGYNStart: 01-13-2025 End: 34-12-2780Fkrevynlpsds consultation with zaedmqs0701/13/2025 10:00 AM EDT Telemedicine Maternal- Medicine at [facility] [address] [place] [place] [phone] Roxana Smith PA-C [address], [id number] [facility]: 01-05-2025 End: 87-02-8417Jxrvmqx encounter wtfcrkagl71/08/2025 2:40 PM EDT Routine SHILOH COLVIN [address] [facility] [address] [place], [id number] Wilton Herrmann, [address] [facility] [place] [address] NOMJaylan [place] OBGYNStart: 01-05-2025 End: lead ECGECG 12 lead unit performed ECG Routine Thyroid disease Gestational diabetes mellitus (GDM), antepartum, gestational diabetes method of control unspecified (HHS-HCC) Multigravida of advanced maternal age in second trimester (HHS-HCC) Lightheaded Dizziness Expected: 01/05/2025 (Approximate), Expires:01/05/2026[facility] HealthcareComment on above:Expected: 01/05/2025 (Approximate), Expires: 01/05/2026Start: 01-05-2025 End: 90-02-7210Hagmjkueocncpj 2D completeEchocardiogram 2D complete Echocardiography Routine Thyroid disease Gestational diabetes mellitus (GDM), antepartum, gestational diabetes method of control unspecified (HHS-HCC) Multigravida of advanced maternal age in second trimester (HHS-HCC) Lightheaded Dizziness Expected: 01/05/2025 (Approximate), Expires: 01/05/2027[facility] Work Phone: comment on above:Expected: 01/05/2025 (Approximate), Expires: 01/05/2027Start: 01-01-2025 End: 15-33-9820Rmfumfibxjyz consultation with unloxex5101/01/2025 2:30 PM EDT Telemedicine [facility] [place] [address] [address] Mukul Noyola MD [address] [phone] Maternal Medicine DelanoStart: 01-01-2025 End: 16-07-4471MC MFM with or without consultUS MFM with or without consult Imaging Routine Multigravida of advanced maternal age in second trimester Antiphospholipid syndrome complicating , antepartum Gestational diabetes mellitus (GDM) in second trimester controlled on oral hypoglycemic drug Insulin controlled gestational diabetes mellitus (GDM) in second trimester AMA (advanced maternal age) multigravida 35+, second trimester Hypothyroidism, unspecified type Expected: 01/01/2025, Expires: 01/01/2026[facility] Work Phone: comment on above:Expected: 01/01/2025, Expires: 01/01/2026Start: 01-01-2025 End: 24-91-2067Ftogsbo encounter lzknmimol27/04/2025 1:00 PM EDT Appointment [facility] [place] [address] [address] Maternal Medicine DelanoStart: 12-29-2024 Influenza vaccinationSamaritan Hospitaltart: 12-24-2024 End: 35-92-8116KAU W Auto Differential panel - BloodCOMPLETE BLOOD COUNT AND DIFFERENTIAL Lab Routine Primary hypercoagulable state (HCC) CVA, old, spee ch/language deficit Cerebral hyponatremia Personal history of TIA (transient ischemic attack) Expected: 12/24/2024, Expires: 03/25/2025[facility] Work Phone: Comment on above:Expected: 12/24/2024, Expires: 03/25/2025Start: 12-24-2024 End: 51-68-5851Evpfmbxsz (Vitamin B12) [Mass/volume] in Serum or PlasmaVITAMIN B12 Lab Routine Primary hypercoagulable state (HCC) CVA, old, speech/language deficit Cerebral hyponatremia Personal history of TIA (transient ischemic attack) Expected: 12/24/2024, Expires: 03/25/2025[facility] ClinicComment on above:Expected: 12/24/2024, Expires: 03/25/2025Start: 12-24-2024 End: 56-80-1386Cncfhddzxiusw metabolic 2000 panel - Serum or PlasmaCOMPREHENSIVE METABOLIC PANEL Lab Routine Primary hypercoagulable state (HCC) CVA, old, speech/language deficit Cerebral hyponatremia Personal history of TIA (transient ischemic attack) Expected: 12/24/2024, Expires: 03/25/2025[facility] Comment on above:Expected: 12/24/2024, Expires: 03/25/2025Start: 12-24-2024 End: 57-52-1886Kgvwphjg [Mass/volume] in Serum or PlasmaFERRITIN Lab Routine Primary hypercoagulable state (HCC) CVA, old, speech/language deficit Cerebral hyponatremia Personal history of TIA (transient ischemic attack) Expected: 12/24/2024, Expires: 03/25/2025[facility] ClinicComment on above:Expected: 12/24/2024, Expires: 03/25/2025Start: 12-24-2024 End: 43-04-4275Zdjs and Iron binding capacity panel - Serum or PlasmaIRON AND TIBC Lab Routine Primary hypercoagulable state (HCC) CVA, old, speech/language deficit Cerebral hyponatremia Personal history of TIA (transient ischemic attack) Expected: 12/24/2024, Expires: 03/25/2025[facility] ClinicComment on above:Expected: 12/24/2024, Expires: 03/25/2025Start: 12-23-2024 End: 040128-kjiwjuywuaskzc D3 [Mass/volume] in Serum or PlasmaVITAMIN D 25 HYDROXY Lab Routine 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) Vitamin D deficiency Expected: 12/23/2024, Expires: 03/24/2025[facility] Work Phone: Comment on above:Expected: 12/23/2024, Expires: 03/24/2025Start: 12-22-2024 End: 81-54-2006Jlxwew-up hfwrfwtil57/25/2025 1:30 PM EDT Visit (SP) Office Hematology/Oncology [address] [facility] [address] [place] [phone] Katherine Negrete, LATHE HAND.COUNCILOR [address] [facility] [place] [address] 8 week follow up labHematology/OncologyComment on above:8 week follow up labStart: 12-22-2024 End: 88-19-2851Bkoowyk encounter qyskogllh57/25/2025 1:15 PM EDT Office Visit [facility] [address] [place] [address] [place] [address] 8 week follow up labNortMcLaren Northern Michigan LaboratoryComment on above:8 week follow up labStart: 12-17-2024 End: 65-58-1933Fahvaupbawid consultation with dahovqr8712/17/2024 1:30 PM EDT Telemedicine Maternal- Medicine at [facility] [address] [place] [address] Alisa Saba, LATHE HAND-COUNCILOR [address] [place] [address] [facility]: 12-11-2024 End: 87-52-1784Wfvaslj encounter fbokcrveo18/14/2025 9:10 AM EDT Routine [facility] [address] [facility] [address] [place], [address] Wilton Herrmann, DO [address] [address] N[facility] Piyush OBGYNStart: 12-03-2024 End: 44-76-2617Hhrnainbboqa consultation with ppaognl6212/03/2024 2:00 PM EDT Telemedicine Maternal- Medicine at [facility] [address] [place] [phone] Alisa Saab, VICTOR HUGO-COUNCILOR [address] [place] [address] [facility]: 11-20-2024 End: 82-79-6023Qnwth fetoprotein, maternalAlpha fetoprotein, maternal Lab Routine Second trimester ([facility]) Expected: 11/20/2024 (Approximate), Expires: 01/21/2025[facility] HealthcareComment on above:Expected: 11/20/2024 (Approximate), Expires: 01/21/2025Start: 11-20-2024 End: 29-35-4084Cqrjyrp encounter neveukxfq30/24/2025 10:10 AM EDT Routine [facility] [address] [facility] [place] [address] Wilton Herrmann, DO [address] [place] [address] NOMS BCP OBStart: 11-19-2024 End: 09-29-0455lltllwifoc85/23/2025 9:30 AM EDT Support Visit Maternal- Medicine at [facility] [address] [place] [phone] Lorena Enciso RN [address] [place] [address] Stephanie Quiros, Cindy Uribe, RD [address], [address] [place] [address] [facility]: 11-12-2024 End: 92-62-7497ZO MFM with or without consultUS MFM with or without consult Imaging Routine Gestational diabetes mellitus (GDM), antepartum, gestational diabetes method of control unspecified Expected: 11/12/2024 (Approximate), Expires: 10/13/2025[facility] Work Phone: comment on above:Expected: 11/12/2024 (Approximate), Expires: 10/13/2025Start: 10-30-2024 End: 44-38-7079Rqciupe encounter lllerqzxj41/03/2025 10:40 AM EDT Routine [facility] [address] [facility] [place] [address] Wilton Herrmann, DO [address] [place] [address] NOMS BCP OBStart: 10-30-2024 End: 96-89-5447Anuyjwa encounter /03/2025 9:30 AM EDT Routine [facility] [address] [facility] [place] [address] Wilton Herrmann, DO [address] [place] [address] ArrivedNOMS BCP OBComment on above: ArrivedStart: 10-28-2024 End: 90-50-7431Bxecmi-up /01/2025 2:30 PM EDT Visit (SP) Office Hematology/Oncology [address] [place] [address] [place], [place] [phone] Katherine Negrete, LATHE HAND.COUNCILOR [address] [place] [address] [place] [address] 3 month follow upHematology/OncologyComment on above:3 month follow upStart: 10-28-2024 End: 20-97-0622Vjtjkuv encounter ulyemxlsv41/01/2025 2:15 PM EDT Office Visit [facility] [address] [place] [address] labs - patient prefers to come same dayNortMcLaren Northern Michigan LaboratoryComment on above:labs - patient prefers to come same day Start: 10-27-2024 End: 27-45-2293Cfhykjm encounter hijuhowza17/30/2025 9:20 AM EDT Office Visit [facility] OB [address] [facility] [place] [address] Wilton Herrmann, DO [address] [facility] [place] [address] NOMS BCP OBStart: 10-20-2024 End: 42-34-5927Fdmtnvfovtyg / ancillary services mxobcwguys19/23/2025 1:00 PM EDT Ancillary Procedure [facility] OB [address] [place] [address] NOMS BCP OBStart: 10-10-2024 End: 79-26-8625Qprdlb-up /13/2025 10:40 AM EDT Visit (SP) Office Hematology/Oncology [address] [facility] [place] [address] Kristofer Calix MD [address] [facility] [address] 3 month follow upHematology/OncologyComment on above:3 month follow upStart: 10-10-2024 End: 50-17-4417Hxmtxpx encounter icvktqxrf51/13/2025 10:15 AM EDT Office Visit [facility] [address] [facility] [place] [address] labs - patient prefers to come same dayOakdale Community Hospital LaboratoryComment on above:labs - patient prefers to come same day Start: 10-02-2024 End: 77-51-0458FHZ/RhABO/Rh Lab Routine Missed menses , unspecified gestational age Expected: 10/02/2024 (Approximate), Expires: 10/02/2025[facility] HealthcareComment on above:Expected: 10/02/2024 (Approximate), Expires: 10/02/2025Start: 10-02-2024 End: 05-41-6070Nogft type and Indirect antibody screen panel - BloodType and screen Lab Routine Missed menses , unspecified gestational age Expected: 10/02/2024 (Approximate), Expires: 10/02/2025[facility] Work Phone: comment on above:Expected: 10/02/2024 (Approximate), Expires: 10/02/2025Start: 10-02-2024 End: 26-92-7812Bjife of abuse panel - Urine by Screen methodRapid drug screen, urine Lab Routine , unspecified gestational age Encounter for supervision of normal first in first trimester Expected: 10/02/2024 (Approximate), Expires: 10/02/2025[facility] HealthcareComment on above:Expected: 10/02/2024 (Approximate), Expires: 10/02/2025Start: 10-02-2024 End: 19-23-4820hqghjddxzk31/05/2025 1:00 PM EDT Initial [facility] OB [address] [place] [phone] NOMS BCP OBStart: 10-02-2024 End: 72-03-9209Pewxfwynlkct / ancillary services wumedqlinp88/05/2025 12:30 PM EDT Ancillary Procedure [facility] OB [facility] [address] [place] [phone] NOMS BCP OBStart: 08-27-2024 End: 50-61-3618Kavgwa-up rofrkjjjo30/30/2025 2:00 PM EDT Visit (SP) Office Hematology/Oncology [address] [place] [address] [address] [place], [place] [phone] Kristofer Calix MD [address] [facility] [place] [address] 3 month follow upHematology/OncologyComment on above:3 month follow upStart: 08-27-2024 End: 61-56-4399Ffibptz encounter sbmpuwxxu71/30/2025 1:45 PM EDT Office Visit [facility] [address] [facility] [place] [address] labs - patient prefers to come same dayNortMcLaren Northern [facility] LaboratoryComment on above:labs - patient prefers to come same day Start: 08-26-2024 End: 940448-xbqjlfbltjblcu D3 [Mass/volume] in Serum or PlasmaVITAMIN D 25 HYDROXY Lab Routine 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 Vitamin D deficiency Expected: 08/26/2024, Expires: 11/25/2024[facility] ClinicComment on above: Expected: 08/26/2024, Expires: 11/25/2024Start: 08-26-2024 End: 76-34-2425HIE W Auto Differential panel - BloodCOMPLETE BLOOD COUNT AND DIFFERENTIAL Lab Routine 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 Vitamin D deficiency Expected: 08/26/2024, Expires: 11/25/2024[facility] Work Phone: Comment on above:Expected: 08/26/2024, Expires: 11/25/2024Start: 08-26-2024 End: 33-02-1893Hnamrideh (Vitamin B12) [Mass/volume] in Serum or PlasmaVITAMIN B12 Lab Routine 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 Vitamin D deficiency Expected: 08/26/2024, Expires: 11/25/2024[facility] ClinicComment on above: Expected: 08/26/2024, Expires: 11/25/2024Start: 08-26-2024 End: 00-11-7554Dncppnoglaptn metabolic 2000 panel - Serum or PlasmaCOMPREHENSIVE METABOLIC PANEL Lab Routine Antiphospholipid antibody positive Iron deficiency anemiasecondary to blood loss (chronic) Malaise and fatigue Vitamin D deficiency Expected: 08/26/2024, Expires: 11/25/2024[facility] ClinicComment on above: Expected: 08/26/2024, Expires: 11/25/2024Start: 08-26-2024 End: 69-60-5214Ezzasifg [Mass/volume] in Serum or PlasmaFERRITIN Lab Routine 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) Malaise and fatigue Vitamin D deficiency Expected: 08/26/2024, Expires: 11/25/2024[facility] ClinicComment on above:Expected: 08/26/2024, Expires: 11/25/2024Start: 08-26-2024 End: 81-47-0589Xggl and Iron binding capacity panel - Serum or PlasmaIRON AND TIBC Lab Routine 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 Vitamin D deficiency Expected: 08/26/2024, Expires: 11/25/2024[facility] ClinicComment on above: Expected: 08/26/2024, Expires: 11/25/2024Start: 08-26-2024 End: 71-25-4851Lkhiaylcjrs [Units/volume] in Serum or PlasmaTHYROID STIMULATING HORMONE Lab Routine Antiphospholipid antibody positive 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) Malaise and fatigue Vitamin D deficiency Expected: 08/26/2024, Expires: 11/25/2024[facility] ClinicComment on above: Expected: 08/26/2024, Expires: 11/25/2024Start: 07-24-2024 End: 53-44-5747QoazdcgqijjvZmrrhdyprrki Lab Routine Irregular menstrual cycle Expected: 07/24/2024 (Approximate), Expires: 07/24/2025[facility] Work Phone: comment on above:Expected: 07/24/2024 (Approximate), Expires: 07/24/2025Start: 49-74-4992TLwL,Tdap and Td Vaccines (2 - Td or Tdap) DTaP,Tdap and Td Vaccines (2 - Td or Tdap)[facility]: 07-85-5063SJmD/Tdap/Td vaccine (2 - Td or Tdap)DTaP/Tdap/Td vaccine (2 - Td or Tdap)[facility]: 96-27-9735Sukln microalbumin profile [facility]: 06-23-2024 End: 07-37-2990EO PelvisUS Pelvis w/ TV Imaging Routine Vaginal bleeding Vaginal discharge Pelvic pain in female Expected: 06/23/2024, Expires: 06/23/2025[facility] HealthcareComment on above:Expected: 06/23/2024, Expires: 06/23/2025Start: 06-02-2024 End: 14-21-9406Fzaypdh encounter ebvrnoheb90/03/2025 11:20 AM EST Office Visit [facility] [address] [address] [phone] Wilton Herrmann DO [address] [place] [address] [facility] PO OBStart: 05-21-2024 End: 34-90-3185Kmyiph-up ingwbtjwv59/22/2025 2:20 PM EST Visit (SP) Office Hematology/Oncology [address] [facility] [address] [place], [place] [phone] Kristofer Calix MD [address] [facility] [place] [address] 3 month follow up with labHematology/OncologyComment on above:3 month follow up with labStart: 05-21-2024 End: 72-21-3280Kapntoq encounter /22/2025 2:00 PM EST Office Visit [facility] [address] [place] [address] [place] [address] 3 month follow up with labNortMcLaren Northern [facility] LaboratoryComment on above:3 month follow up with labStart: 05-06-2024 End: 70-70-7735DL for pregnancyNOPR Healthcare Work Phone: comment on above:Expected: 05/06/2024, Expires: 05/06/2025Start: 05-06-2024 End: 70-45-7662Faykiky encounter rovihbptj84/07/2025 1:50 PM EST Routine [facility] [address] [facility] [place] [phone] Wilton Herrmann, DO [address] [facility] [place] [address] [facility] BCP OBStart: 04-09-2024 End: 59-92-5138Fbbfhs-up encounterHematology/OncologyComment on above:3 month follow up with labStart: 04-09-2024 End: 02-24-3896Qecacti encounter procedureOakdale Community Hospital LaboratoryComment on above:3 month follow up with labStart: 04-04-2024 End: 47-97-7171LVY/RhABO/Rh Lab Routine Missed menses , unspecified gestational age Expected: 04/04/2024 (Approximate), Expires: 04/04/2025[facility] HealthcareComment on above:Expected: 04/04/2024 (Approximate), Expires: 04/04/2025Start: 04-04-2024 End: 11-84-9672Hfgyw type and Indirect antibody screen panel - BloodType and screen Lab Routine Missed menses , unspecified gestational age Expected: 04/04/2024 (Approximate), Expires: 04/04/2025[facility] Work Phone: comment on above:Expected: 04/04/2024 (Approximate), Expires: 04/04/2025Start: 04-04-2024 End: 44-44-8759Bvoob of abuse panel - Urine by Screen methodRapid drug screen, urine Lab Routine , unspecified gestational age Encounter for supervision of normal first in first trimester Expected: 04/04/2024 (Approximate), Expires: 04/04/2025[facility] HealthcareComment on above:Expected: 04/04/2024 (Approximate), Expires: 04/04/2025Start: 04-04-2024 End: 55-20-5733XL Pelvis transvaginalUS OB transvaginal Imaging Routine Missed menses Expected: 04/04/2024 (Approximate), Expires: 04/04/2025[facility] Comment on above:Expected: 04/04/2024 (Approximate), Expires: 04/04/2025Start: 04-02-2024 End: 764578-lqjhecokawyjze D3 [Mass/volume] in Serum or PlasmaVITAMIN D 25 HYDROXY Lab Routine Iron deficiency anemia secondary to blood loss (chronic) Vitamin Ddeficiency Malaise and fatigue Expected: 04/02/2024 (Approximate), Expires: 07/02/2024[facility] ClinicComment on above:Expected: 04/02/2024 (Approximate), Expires: 07/02/2024Start: 04-02-2024 End: 78-44-4691XGM W Auto Differential panel - BloodCOMPLETE BLOOD COUNT AND DIFFERENTIAL Lab Routine Iron deficiency anemia secondary to blood loss (ch ronic) Vitamin D deficiency Malaise and fatigue Expected: 04/02/2024 (Approximate), Expires: 01/01/2025[facility] ClinicComment on above:Expected: 04/02/2024 (Approximate), Expires: 01/01/2025Start: 04-02-2024 End: 67-07-6493Ldlcekbov (Vitamin B12) [Mass/volume] in Serum or PlasmaVITAMIN B12 Lab Routine Iron deficiency anemia secondary to blood loss (chronic) Vitamin D deficiency Malaise and fatigue Expected: 04/02/2024 (Approximate), Expires: 01/01/2025[facility] ClinicComment on above:Expected: 04/02/2024 (Approximate), Expires: 01/01/2025Start: 04-02-2024 End: 07-85-3116Hzcdxsocithud metabolic 2000 panel - Serum or PlasmaCOMPREHENSIVE METABOLIC PANEL Lab Routine Iron deficiency anemia secondary to blood loss (chronic) Vitamin D deficiency Malaise and fatigue Expected: 04/02/2024 (Approximate), Expires: 01/01/2025[facility]:Expected: 04/02/2024 (Approximate), Expires: 01/01/2025Start: 04-02-2024 End: 60-78-0847Sxyznmyf [Mass/volume] in Serum or PlasmaFERRITIN Lab Routine Iron deficiency anemia secondary to blood loss (chronic) Vitamin D deficiency M alaise and fatigue Expected: 04/02/2024 (Approximate), Expires: 01/01/2025 [facility]:Expected: 04/02/2024 (Approximate), Expires: 01/01/2025Start: 04-02-2024 End: 38-38-3594Rntkxr [Mass/volume] in Serum or PlasmaFOLATE, SERUM Lab Routine Iron deficiency anemia secondary to blood loss (chronic) Vitamin D deficiency Malaise and fatigue Expected: 04/02/2024 (Approximate), Expires: 01/01/2025 [facility] HospitalComment on above:Expected: 04/02/2024 (Approximate), Expires: 01/01/2025Start: 04-02-2024 End: 89-56-5418Jnqi and Iron binding capacity panel - Serum or PlasmaIRON AND TIBC Lab Routine Iron deficiency anemia secondary to blood loss (chronic) Vitamin D deficiency Malaise and fatigue Expected: 04/02/2024 (Approximate), Expires: 01/01/2025[facility] on above:Expected: 04/02/2024 (Approximate), Expires: 01/01/2025Start: 04-02-2024 End: 21-61-1435Xbqwhlyfelh [Units/volume] in Serum or PlasmaTHYROID STIMULATING HORMONE Lab Routine Iron deficiency anemia secondary to blood loss (chronic) Vit vogel D deficiency Malaise and fatigue Expected: 04/02/2024 (Approximate), Expires: 07/02/2024[facility] Work Phone: Comment on above:Expected: 04/02/2024 (Approximate), Expires: 07/02/2024Start: 01-05-2024 End: 45-09-3381YON W Auto Differential panel - BloodCOMPLETE BLOOD COUNT AND DIFFERENTIAL Lab Routine Iron deficiency anemia secondary to blood loss (ch ronic) Vitamin D deficiency Malaise and fatigue Expected: 01/05/2024 (Approximate), Expires: 01/01/2025[facility] ClinicComment on above:Expected: 01/05/2024 (Approximate), Expires: 01/01/2025Start: 01-05-2024 End: 19-34-4996Wvhyrodhpcnjq metabolic 2000 panel - Serum or PlasmaCOMPREHENSIVE METABOLIC PANEL Lab Routine Iron deficiency anemia secondary to blood loss (chronic) Vitamin D deficiency Malaise and fatigue Expected: 01/05/2024 (Approximate), Expires: 01/01/2025[facility] ClinicComment on above:Expected: 01/05/2024 (Approximate), Expires: 01/01/2025Start: 01-02-2024 End: 45-07-9349Exlkzc-up ratqxjvrq37/04/2024 1:45 PM EDT Visit (SP) Office Hematology/Oncology [address] [place] [address] [address] [place], [place] [phone] Kristofer Calix MD [address] [place] [address] [place] [address] 8 WEEK FOLLOW UPHematology/OncologyComment on above:8 WEEK FOLLOW UPStart: 01-02-2024 End: 62-96-4322Tnmlywh encounter infnkwtze33/04/2024 1:30 PM EDT Office Visit [facility] [address] [place], [place] [address] [address] 8 WEEK FOLLOW UPNortMcLaren Northern [facility] LaboratoryComment on above:8 WEEK FOLLOW UPStart: 26-87-2695Oirtm-19 Vaccine ( season)Covid-19 Vaccine ( season)[facility]: 82-76-6903Dgeuk-19 Vaccine ( season)Covid-19 Vaccine ( season)[facility]: 53-68-5502Snexbboci vaccinationOhiohealth [facility] Start: 11-29-2023 End: 47-03-5060ymrieomimv67/01/2024 1:30 PM EDT Infusion Center Hematology/Oncology [address] [place] [address] VENOFER 300Hematology/OncologyComment on above:VENOFER 300Start: 11-22-2023 End: 17-95-2105mlyfpyzwmg95/25/2024 1:30 PM EDT Infusion Center Hematology/Oncology [address] [facility] [place] [address] VENOFER 300Hematology/OncologyComment on above:VENOFER 300Start: 11-15-2023 End: 30-32-1407sawaowhgdj29/18/2024 1:30 PM EDT Infusion Center Hematology/Oncology [address] [facility] [place] [address] VENOFER 300Hematology/OncologyComment on above:VENOFER 300Start: 09-13-2023 End: 498535-ogetsgnjudykxv D3 [Mass/volume] in Serum or PlasmaVITAMIN D 25 HYDROXY Lab Routine Vitamin D deficiency 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) Expected: 09/13/2023 (Approximate), Expires: 12/13/2023[facility] Work Phone: Comment on above:Expected: 09/13/2023 (Approximate), Expires: 12/13/2023Start: 09-13-2023 End: 43-70-0601Bgytrkx.ionized [Moles/volume] in BloodCALCIUM IONIZED BLOOD Lab Routine Vitamin D deficiency 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) Expected: 09/13/2023 (Approximate), Expires: 12/13/2023 [facility] Work Phone: Comment on above:Expected: 09/13/2023 (Approximate), Expires: 12/13/2023Start: 09-13-2023 End: 33-83-7734ZAV W Auto Differential panel - BloodCBC + DIFF Lab Routine Vitamin D deficiency 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) Expected: 09/13/2023 (Approximate), Expires: 06/15/2024[facility] Work Phone: Comment on above:Expected: 09/13/2023 (Approximate), Expires: 06/15/2024Start: 09-13-2023 End: 05-64-9724Jkgjzvlbx (Vitamin B12) [Mass/volume] in Serum or PlasmaVITAMIN B12 BLOOD Lab Routine Vitamin D deficiency 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) Expected: 09/13/2023 (Approximate), Expires: 06/15/2024[facility] Work Phone: Comment on above:Expected: 09/13/2023 (Approximate), Expires: 06/15/2024Start: 09-13-2023 End: 45-10-3956Jthcwxaaoivnr metabolic 2000 panel - Serum or PlasmaCOMP METABOLIC PANEL Lab Routine Vitamin D deficiency 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) Expected: 09/13/2023 (Approximate), Expires: 06/15/2024[facility] Work Phone: Comment on above:Expected: 09/13/2023 (Approximate), Expires: 06/15/2024Start: 09-13-2023 End: 97-08-5691Xzmohplf [Mass/volume] in Serum or PlasmaFERRITIN BLD Lab Routine Vitamin D deficiency 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) Expected: 09/13/2023 (Approximate), Expires: 06/15/2024[facility] Work Phone: Comment on above:Expected: 09/13/2023 (Approximate), Expires: 06/15/2024Start: 09-13-2023 End: 98-50-8451Rlugoz [Mass/volume] in Serum or PlasmaFOLATE SERUM Lab Routine Vitamin D deficiency 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) Expected: 09/13/2023 (Approximate), Expires: 06/15/2024[facility] Work Phone: Comment on above:Expected: 09/13/2023 (Approximate), Expires: 06/15/2024Start: 09-13-2023 End: 29-64-6989Mxxy and Iron binding capacity panel - Serum or PlasmaIRON + TIBC Lab Routine Vitamin D deficiency 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) Expected: 09/13/2023 (Approximate), Expires: 06/15/2024 [facility] Work Phone: Comment on above:Expected: 09/13/2023 (Approximate), Expires: 06/15/2024Start: 09-13-2023 End: 02-77-3547Cxgjpbnpit.intact [Mass/volume] in Serum or PlasmaPTH INTACT BLD Lab Routine Vitamin D deficiency 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) Expected: 09/13/2023 (Approximate), Expires: 12/13/2023 [facility] Work Phone: Comment on above:Expected: 09/13/2023 (Approximate), Expires: 12/13/2023Start: 06-15-2023 End: 877499-yfchknyzzixvoq D3 [Mass/volume] in Serum or PlasmaVITAMIN D 25 HYDROXY Lab Routine Vitamin D deficiency Expected: 06/15/2023 (Approximate), Expires: 09/14/2023[facility] Work Phone: Comment on above:Expected: 06/15/2023 (Approximate), Expires: 09/14/2023Start: 06-15-2023 End: 10-38-7030Rfeddxi.ionized [Moles/volume] in BloodCALCIUM IONIZED BLOOD Lab Routine Vitamin D deficiency Hypercalcemia Expected: 06/15/2023 (Approximate), Expires: 09/14/2023[facility] Work Phone: Comment on above:Expected: 06/15/2023 (Approximate), Expires: 09/14/2023Start: 06-15-2023 End: 05-94-5286ETJ W Auto Differential panel - BloodCBC + DIFF Lab Routine Iron deficiency anemia secondary to blood loss (chronic) Expected: 06/15/2023 (Approximate), Expires: 06/12/2024[facility] Work Phone: Comment on above:Expected: 06/15/2023 (Approximate), Expires: 06/12/2024Start: 06-15-2023 End: 40-39-8759Uxwcfqjqr (Vitamin B12) [Mass/volume] in Serum or PlasmaVITAMIN B12 BLOOD Lab Routine Iron deficiency anemia secondary to blood loss (chronic) Expected: 06/15/2023 (Approximate), Expires: 06/12/2024[facility] Work Phone: Comment on above:Expected: 06/15/2023 (Approximate), Expires: 06/12/2024Start: 06-15-2023 End: 47-75-0847Hfkawvfpxuzjy metabolic 2000 panel - Serum or PlasmaCOMP METABOLIC PANEL Lab Routine Iron deficiency anemia secondary to blood loss (chronic) Expected:06/15/2023 (Approximate), Expires: 06/12/2024[facility] Work Phone: Comment on above:Expected: 06/15/2023 (Approximate), Expires: 06/12/2024Start: 06-15-2023 End: 98-99-6793Hdrprjak [Mass/volume] in Serum or PlasmaFERRITIN BLD Lab Routine Iron deficiency anemia secondary to blood loss (chronic) Expected: 06/15/2023 (Approximate), Expires: 06/12/2024[facility] Work Phone: Comment on above:Expected: 06/15/2023 (Approximate), Expires: 06/12/2024Start: 06-15-2023 End: 75-53-9459Qzslsn [Mass/volume] in Serum or PlasmaFOLATE SERUM Lab Routine Iron deficiency anemia secondary to blood loss (chronic) Expected: 06/15/2023 (Approximate), Expires: 06/12/2024[facility] Work Phone: Comment on above:Expected: 06/15/2023 (Approximate), Expires: 06/12/2024Start: 06-15-2023 End: 45-31-0764Qvuj and Iron binding capacity panel - Serum or PlasmaIRON + TIBC Lab Routine Iron deficiency anemia secondary to blood loss (chronic) Expected: 06/15/2023 (Approximate), Expires: 06/12/2024[facility] Work Phone: Comment on above:Expected: 06/15/2023 (Approximate), Expires: 06/12/2024Start: 06-15-2023 End: 38-53-8569HLX, INTACT (WITHOUT CALCIUM)PTH, INTACT (WITHOUT CALCIUM) Lab Routine Vitamin D deficiency Hypercalcemia Expected: 06/15/2023 (Approximate), Expires: 09/14/2023[facility] Work Phone: Comment on above:Expected: 06/15/2023 (Approximate), Expires: 09/14/2023Start: 06-15-2023 End: 81-26-4953Vcttjxmesdb [Units/volume] in Serum or PlasmaTSH BLD Lab Routine Malaise and fatigue Expected: 06/15/2023 (Approximate), Expires: 09/14/2023 [facility] Work Phone: Comment on above:Expected: 06/15/2023 (Approximate), Expires: 09/14/2023Start: 06-14-2023 End: 030187-vktnuoccdghwxt D3 [Mass/volume] in Serum or PlasmaVITAMIN D 25 HYDROXY Lab Routine Hypercalcemia Vitamin D deficiency Expected: 06/14/2023 (Approximate), Expires: 09/13/2023[facility] Work Phone: Comment on above:Expected: 06/14/2023 (Approximate), Expires: 09/13/2023Start: 06-14-2023 End: 35-38-3115Zpbycxr.ionized [Moles/volume] in BloodCALCIUM IONIZED BLOOD Lab Routine Hypercalcemia Vitamin D deficiency Expected: 06/14/2023 (Approximate), Expires: 09/13/2023[facility] Work Phone: Comment on above:Expected: 06/14/2023 (Approximate), Expires: 09/13/2023Start: 06-14-2023 End: 70-54-3416JUW, INTACT (WITHOUT CALCIUM)PTH, INTACT (WITHOUT CALCIUM) Lab Routine Hypercalcemia Vitamin D deficiency Expected: 06/14/2023 (Approximate), Expires: 09/13/2023[facility] Work Phone: Comment on above:Expected: 06/14/2023 (Approximate), Expires: 09/13/2023Start: 06-14-2023 End: 47-94-1132Syamvvhifrw [Units/volume] in Serum or PlasmaTSH BLD Lab Routine Hypercalcemia Malaise and fatigue Expected: 06/14/2023 (Approximate), Expires: 0 09/13/2023[facility] Work Phone: Comment on above:Expected: 06/14/2023 (Approximate), Expires: 09/13/2023Start: 05-14-2023 End: 86-71-5941HWN W Auto Differential panel - BloodCBC + DIFF Lab Routine Primary hypercoagulable state (HCC) Iron deficiency anemia secondary to blood loss (chronic) Vitamin D deficiency CVA, old, 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) Expected: 05/14/2023 (Approximate), Expires: 03/19/2024[facility] Work Phone: Comment on above:Expected: 05/14/2023 (Approximate), Expires: 03/19/2024Start: 05-14-2023 End: 94-99-8330Nlkarcgxc (Vitamin B12) [Mass/volume] in Serum or PlasmaVITAMIN B12 BLOOD Lab Routine Primary hypercoagulable state (HCC) Iron deficiency anemia secondary to blood loss (chronic) Vitamin D deficiency CVA, old, 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) Expected: 05/14/2023 (Approximate), Expires: 03/19/2024[facility] Work Phone: Comment on above:Expected: 05/14/2023 (Approximate), Expires: 03/19/2024Start: 05-14-2023 End: 40-31-5147Ztsiahunmkpqw metabolic 2000 panel - Serum or PlasmaCOMP METABOLIC PANEL Lab Routine Primary hypercoagulable state (HCC) Iron deficiency anemia secondary to blood loss (chronic) Vitamin D deficiency CVA, old, 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) Expected: 05/14/2023 (Approximate), Expires: 03/19/2024[facility] Work Phone: Comment on above:Expected: 05/14/2023 (Approximate), Expires: 03/19/2024Start: 05-14-2023 End: 88-02-5459Lameexhm [Mass/volume] in Serum or PlasmaFERRITIN BLD Lab Routine Primary hypercoagulable state (HCC) Iron deficiency anemia secondary to blood loss (chronic) Vitamin D deficiency CVA, old, 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) Expected: 05/14/2023 (Approximate), Expires: 03/19/2024[facility] Work Phone: Comment on above:Expected: 05/14/2023 (Approximate), Expires: 03/19/2024Start: 05-14-2023 End: 02-10-6628Emodhe [Mass/volume] in Serum or PlasmaFOLATE SERUM Lab Routine Primary hypercoagulable state (HCC) Iron deficiency anemia secondary to blood loss (chronic) Vitamin D deficiency CVA, old, 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) Expected: 05/14/2023 (Approximate), Expires: 03/19/2024[facility] Work Phone: Comment on above:Expected: 05/14/2023 (Approximate), Expires: 03/19/2024Start: 05-14-2023 End: 24-54-1060Pudg and Iron binding capacity panel - Serum or PlasmaIRON + TIBC Lab Routine Primary hypercoagulable state (HCC) Iron deficiency anemia secondary to blood loss (chronic) Vitamin D deficiency CVA, old, 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) Expected: 05/14/2023 (Approximate), Expires: 03/19/2024[facility] Work Phone: Comment on above:Expected: 05/14/2023 (Approximate), Expires: 03/19/2024Start: 18-88-2217Gojsanjpqs Health ScreeningBehavioral Health ScreeningSamaritan Hospitaltart: 54-18-7616Yfrpsmvdco AssessmentDepression AssessmentSamaritan Hospitaltart: 02-16-2023 End: 622810-wazkqtcvosartw D3 [Mass/volume] in Serum or PlasmaVITAMIN D 25 HYDROXY Lab Routine Primary hypercoagulable state (HCC) Iron deficiency anemia secondary to blood loss (chronic) Vitamin D deficiency Expected: 02/16/2023 (Approximate), Expires: 04/18/2023[facility] Work Phone: Comment on above:Expected: 02/16/2023 (Approximate), Expires: 04/18/2023Start: 02-16-2023 End: 75-87-4199BUA W Auto Differential panel - BloodCBC + DIFF Lab Routine Primary hypercoagulable state (HCC) Iron deficiency anemia secondary to blood loss (chronic) Expected: 02/16/2023 (Approximate), Expires: 12/23/2023[facility] Work Phone: Comment on above:Expected: 02/16/2023 (Approximate), Expires: 12/23/2023Start: 02-16-2023 End: 48-51-3786Jzqepdygf (Vitamin B12) [Mass/volume] in Serum or PlasmaVITAMIN B12 BLOOD Lab Routine Primary hypercoagulable state (HCC) Iron deficiency anemia secondary to blood loss (chronic) Expected: 02/16/2023 (Approximate), Expires: 12/23/2023[facility] Work Phone: Comment on above:Expected: 02/16/2023 (Approximate), Expires: 12/23/2023Start: 02-16-2023 End: 76-85-5587Tytkbvwrmrzwr metabolic 2000 panel - Serum or PlasmaCOMP METABOLIC PANEL Lab Routine Primary hypercoagulable state (HCC) Iron deficiency anemia secondary to blood loss (chronic) Expected: 02/16/2023 (Approximate), Expires: 12/23/2023[facility] Work Phone: Comment on above:Expected: 02/16/2023 (Approximate), Expires: 12/23/2023Start: 02-16-2023 End: 15-26-0877Zjcxkjhb [Mass/volume] in Serum or PlasmaFERRITIN BLD Lab Routine Primary hypercoagulable state (HCC) Iron deficiency anemia secondary to blood loss (chronic) Expected: 02/16/2023 (Approximate), Expires: 12/23/2023[facility] Work Phone: Comment on above:Expected: 02/16/2023 (Approximate), Expires: 12/23/2023Start: 02-16-2023 End: 78-82-5738Qrmodw [Mass/volume] in Serum or PlasmaFOLATE SERUM Lab Routine Primary hypercoagulable state (HCC) Iron deficiency anemia secondary to blood loss (chronic) Expected: 02/16/2023 (Approximate), Expires: 12/23/2023[facility] Work Phone: Comment on above:Expected: 02/16/2023 (Approximate), Expires: 12/23/2023Start: 02-16-2023 End: 44-99-0842Xmzh and Iron binding capacity panel - Serum or PlasmaIRON + TIBC Lab Routine Primary hypercoagulable state (HCC) Iron deficiency anemia secondary to blood loss (chronic) Expected: 02/16/2023 (Approximate), Expires: 12/23/2023[facility] Work Phone: Comment on above:Expected: 02/16/2023 (Approximate), Expires: 12/23/2023Start: 09-91-9337Ucnsr-19 Vaccine ( season)Covid- 19 Vaccine ( season)[facility]: 38-53-3367Otlgovctu vaccinationSamaritan Hospitaltart: 08-59-6081BSB TESTINGPAP TESTINGSamaritan Hospitaltart: 32-29-9913Wxxsdphpg for malignant neoplasm of cervixPap Testing [facility]: 11-28-2022 End: 94-31-4004RQQ W Auto Differential panel - BloodCBC + DIFF Lab Routine Primary hypercoagulable state (HCC) CVA, old, speech/language deficit Cerebral hyponatremia Expected: 11/28/2022 (Approximate), Expires: 06/06/[address] [place] [address] Work Phone: Comment on above:Expected: 11/28/2022 (Approximate), Expires: 10/04/2023Start: 11-28-2022 End: 25-54-5854Hsfoyilpg (Vitamin B12) [Mass/volume] in Serum or PlasmaVITAMIN B12 BLOOD Lab Routine Primary hypercoagulable state (HCC) CVA, old, speech/language deficitCerebral hyponatremia Expected: 11/28/2022 (Approximate), Expires: [address] [place] [address] Work Phone: Comment on above:Expected: 11/28/2022 (Approximate), Expires: 10/04/2023Start: 11-28-2022 End: 68-20-0411Auhxwnpqqgmmf metabolic 2000 panel - Serum or PlasmaCOMP METABOLIC PANEL Lab Routine Primary hypercoagulable state (HCC) CVA, old, speech/language deficit Cerebral hyponatremia Expected: 11/28/2022 (Approximate), Expires: [address] [place] [address] Work Phone: Comment on above:Expected: 11/28/2022 (Approximate), Expires: 10/04/2023Start: 11-28-2022 End: 25-37-8830Xrroverx [Mass/volume] in Serum or PlasmaFERRITIN BLD Lab Routine Primary hypercoagulable state (HCC) CVA, old, speech/language deficit Cerebral hyponatremia Expected: 11/28/2022 (Approximate), Expires: [address] [place] [address] Work Phone: Comment on above:Expected: 11/28/2022 (Approximate), Expires: 10/04/2023Start: 11-28-2022 End: 70-30-0569Twkbvy [Mass/volume] in Serum or PlasmaFOLATE SERUM Lab Routine Primary hypercoagulable state (HCC) CVA, old, speech/language deficit Cerebral hyponatremia Expected: 11/28/2022 (Approximate), Expires: [address] [place] [address] Work Phone: Comment on above:Expected: 11/28/2022 (Approximate), Expires: 10/04/2023Start: 11-28-2022 End: 32-12-4924Gxjy and Iron binding capacity panel - Serum or PlasmaIRON + TIBC Lab Routine Primary hypercoagulable state (HCC) CVA, old, speech/language deficit Cerebral hyponatremia Expected: 11/28/2022 (Approximate), Expires: 10/04/2023[facility] Work Phone: Comment on above:Expected: 11/28/2022 (Approximate), Expires: 10/04/2023Start: 09-21-2022 End: 21-88-2383PQE W Auto Differential panel - BloodCBC + DIFF Lab Routine Primary hypercoagulable state (HCC) 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, old, speech/language deficit Expected: 09/21/2022 (Approximate), Expires: 07/28/2023[facility] Work Phone: Comment on above:Expected: 09/21/2022 (Approximate), Expires: 07/28/2023Start: 09-21-2022 End: 64-34-6065Qyqmycjol (Vitamin B12) [Mass/volume] in Serum or PlasmaVITAMIN B12 BLOOD Lab Routine Primary hypercoagulable state (HCC) 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, old, speech/language deficit Expected: 09/21/2022 (Approximate), Expires: 07/28/2023[facility] Work Phone: Comment on above:Expected: 09/21/2022 (Approximate), Expires: 07/28/2023Start: 09-21-2022 End: 28-14-7277Uyauvoyoowhuw metabolic 2000 panel - Serum or PlasmaCOMP METABOLIC PANEL Lab Routine Primary hypercoagulable state (HCC) 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, old, speech/language deficit Expected: 09/21/2022 (Approximate), Expires: 07/28/2023[facility] Work Phone: Comment on above:Expected: 09/21/2022 (Approximate), Expires: 07/28/2023Start: 09-21-2022 End: 88-09-9743Egsanepd [Mass/volume] in Serum or PlasmaFERRITIN BLD Lab Routine Primary hypercoagulable state (HCC) 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, old, speech/language deficit Expected: 09/21/2022 (Approximate), Expires: 07/28/2023[facility] Work Phone: Comment on above:Expected: 09/21/2022 (Approximate), Expires: 07/28/2023Start: 09-21-2022 End: 78-07-8376Keovep [Mass/volume] in Serum or PlasmaFOLATE SERUM Lab Routine Primary hypercoagulable state (HCC) 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, old, speech/language deficit Expected: 09/21/2022 (Approximate), Expires: 07/28/2023[facility] Work Phone: Comment on above:Expected: 09/21/2022 (Approximate), Expires: 07/28/2023Start: 09-21-2022 End: 09-00-1517Cgqy and Iron binding capacity panel - Serum or PlasmaIRON + TIBC Lab Routine Primary hypercoagulable state (HCC) 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, old, speech/language deficit Expected: 09/21/2022 (Approximate), Expires: 07/28/2023[facility] Work Phone: Comment on above:Expected: 09/21/2022 (Approximate), Expires: 07/28/2023Start: 37-41-6736HTYQUXIXRN ASSESSMENTDEPRESSION ASSESSMENT [facility]: 01-30-2022 End: 20-57-7317Ppgjbbua [Mass/volume] in Serum or PlasmaFERRITIN BLD Lab Routine Anemia, unspecified type Expected: 01/30/2022, Expires: 01/30/2023[facility] Work Phone: Comment on above:Expected: 01/30/2022, Expires: 01/30/2023Start: 01-30-2022 End: 08-20-9785Byps and Iron binding capacity panel - Serum or PlasmaIRON + TIBC Lab Routine Anemia, unspecified type Expected: 01/30/2022, Expires: 01/30/2023 [facility] Work Phone: Comment on above:Expected: 01/30/2022, Expires: 01/30/2023Start: 91-63-4562Hkfevhyza vaccinationSamaritan Hospitaltart: 12-29-2021 End: 08-74-5810Cktbucm encounter jhgnlaezq34/01/2022 [facility] MedStart: 75-76-6474XJZWGYHDEE ASSESSMENTDEPRESSION ASSESSMENTSamaritan Hospitaltart: 19-89-0290Xchwq depression screening assessmentDEPRESSION SCREENINGSamaritan Hospitaltart: 12-04-2020 Screening for malignant neoplasm of cervixCervical Cancer ScreeningSamaritan Hospitaltart: 35-34-8250Vguhlwii screenDiabetes screenSPOTSYLV[facility] Start: 80-33-1642TFM TESTINGHPV TESTINGSamaritan Hospitaltart: 10-22-2015 Screening for malignant neoplasm of cervixSPOTSYLVANIA [facility]ENTERStart: 14-89-9622UTI Vaccine (1 - 3-dose SCDM series)HPV Vaccine (1 - 3-dose SCDM series)[facility]: 82-38-4056Kepwzolfd for malignant neoplasm of cervixPap smearSPOTSYLVANIA REGIONAL MEDICAL CENTERStart: 08-92-4160YDzE,Tdap and Td Vaccines (1 - Tdap)DTaP,Tdap and Td Vaccines (1 - Tdap)[facility] Start: 09-44-5034Yebqgpjms B Vaccine (1 of 3 - 19+ 3-dose series)Hepatitis B Vaccine (1 of 3 - 19+ 3-dose series)[facility]: 49-28-5400Ekmmq BMI Follow Up PlanAdult BMI Follow Up PlanAlleghany Healthtart: 10-22-2003 Adult BMI ScreeningAdult BMI ScreeningProBrown [facility] Hospitaltart: 10-22-2003 Anxiety ScreeningAnxiety ScreeningSamaritan Hospitaltart: 31-22-9871Gfvkwlpfzc ScreeningDepression ScreeningSamaritan Hospitaltart: 72-79-1206DZFUJXSAN C SCREENINGHEPATITIS C SCREENINGSamaritan Hospitaltart: 94-08-2993Ktgakfcda C screeningSPOTSYLVANIA REGIONAL MEDICAL CENTERStart: 49-53-0658QQU SCREENINGHIV SCREENING [facility]: 71-86-9274QAK screeningHIV ScreeningOhio[facility] Start: 89-57-2546Njugnyqmjk ScreenDepression [facility] Start: 66-01-1710Yipcptrorl ScreeningDepression ScreeningAden[facility] Start: 58-84-6579Yuzjcic ScreeningTobacco ScreeningAlleghany Healthtart: 19-19-5614BGOGO-19 VACCINE (#1)COVID-19 VACCINE (#1)[facility]: 71-51-4214ACIIR-19 VACCINE (1)COVID-19 VACCINE (1)[facility]: 91-75-3091Fvqnvhvxn vaccine (1 of 2 - 2-dose childhood series)Varicella vaccine (1 of 2 - 2-dose childhood series)[facility]: 04-22-1986 COVID-19 Vaccine (#1)COVID-19 Vaccine (#1)[facility]: 17-28-5324TAYNKPSGZ B (1 of 3 - 3-dose series)HEPATITIS B (1 of 3 - 3-dose series)[facility]: 50-45-1940Jxybbpigw B Vaccine (1 of 3 - 3-dose series)Hepatitis B Vaccine (1 of 3 - 3-dose series)[facility] End: 14-75-1564Cgwrb Fetoprotein, MaternalSPOTSYLVAN[facility] Work Phone: comment on above:Once for 1 Occurrences starting 11/21/2021 until 11/21/2021 End: 75-20-7843Icwgedptqbd Ab, HEp-2 Substrate, S (NASEEM by IFA)Antinuclear Ab, HEp-2 Substrate, S (NASEEM by IFA) Lab Routine Antiphospholipid syndrome Antiphospholipid syndrome complicating , antepartum History of CVA (cerebrovascular accident) 1 Occurrences starting 02/16/2025 until 02/16/2026 [facility] Work Phone: comment on above:1 Occurrences starting 02/16/2025 until 6Bacteria identified in Urine by CultureUrine culture Microbiology Routine Missed menses Ordered: 04/04/2024[facility] HealthcareComment on above:Ordered: 04/04/2024acteria identified in Urine by CultureUrine culture Microbiology Routine Missed menses Ordered: 10/02/2024[facility] HealthcareComment on above:Ordered: 10/02/2024 End: 15-96-7989DZS W Auto Differential panel - BloodCBC + DIFF Lab Routine Primary hypercoagulable state (HCC) CVA, old, 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) Every 2 months for 6 Occurrences starting 01/30/2022 until 01/30/2023[facility] Work Phone: Comment on above:Every 2 months for 6 Occurrences starting 01/30/2022 until 01/30/2023BC W Auto Differential panel - BloodCBC and differential Lab Routine Missed menses , unspecified gestational age Ordered: 04/04/2024[facility] HealthcareComment on above:Ordered: 4CBC W Auto Differential panel - BloodCBC and differential Lab Routine Missed menses , unspecified gestational age Ordered: 10/02/2024[facility] HealthcareComment on above:Ordered: 10/02/2024BC W Auto Differential panel - BloodCBC and differential Lab Routine 28 weeks gestation of ([facility]) Ordered: 02/09/2025[facility] Work Phone: comment on above:Ordered: 02/09/2025HLAMYDIA TRACHOMATIS (GENITO/STI)CHLAMYDIA TRACHOMATIS (GENITO/STI) Lab Routine Vaginal bleeding Vaginal discharge Ordered: 06/23/2024[facility] HealthcareComment on above: Ordered: 06/23/2024HLAMYDIA TRACHOMATIS (GENITO/STI)CHLAMYDIA TRACHOMATIS (GENITO/STI) Lab Routine Vaginal discharge Ordered: 11/20/2024[facility] Healthcare Comment on above:Ordered: 11/20/2024 End: 60-33-3839Amxlgwjepv profile (C3 AND C4)Complement profile (C3 AND C4) Lab Routine Antiphospholipid syndrome Antiphospholipid syndrome complicating , antepartum History of CVA (cerebrovascular accident) 1 Occurrences starting 02/16/2025 until 02/16/2026[facility] SystemComment on above:1 Occurrences starting 02/16/2025 until 02/16/2026 End: 20-80-0522Aywlwrgxgralk metabolic 2000 panel - Serum or PlasmaCOMP METABOLIC PANEL Lab Routine Primary hypercoagulable state (HCC) CVA, old, 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) Every 2 months for 6 Occurrences starting 01/30/2022 until 01/30/2023[facility] Work Phone: Comment on above:Every 2 months for 6 Occurrences starting 01/30/2022 until 01/30/2023 End: 92-51-1067RRK double-stranded (dsDNA) Abs by Crithidia luciliae IFADNA double-stranded (dsDNA) Abs by Crithidia luciliae IFA Lab Routine Antiphospholipid syndrome Antiphospholipid syndrome complicating , antepartum History of CVA (cerebrovascular accident) 1 Occurrences starting 02/16/2025 until 02/16/2026[facility] SystemComment on above:1 Occurrences starting 02/16/2025 until 02/16/2026 End: 20-54-2426RYY PanelENA Panel Lab Routine Antiphospholipid syndrome Antiphospholipid syndrome complicating , antepartum History of CVA (cerebrovascular accident) 1 Occurrences starting 02/16/2025 until 02/16/2026 [facility] SystemComment on above:1 Occurrences starting 02/16/2025 until 02/16/2026Hemoglobin A1c/Hemoglobin.total in BloodHemoglobin A1c Lab Routine Missed menses , unspecified gestational age Ordered: 04/04/2024[facility] HealthcareComment on above:Ordered: 04/04/2024Hemoglobin A1c/Hemoglobin.total in BloodHemoglobin A1c Lab Routine Missed menses , unspecified gestational age Ordered: 10/02/2024[facility] HealthcareComment on above:Ordered: 10/02/2024Hepatitis B virus surface Ag [Presence] in Serum or Plasma by ImmunoassayHepatitis B surface antigen Lab Routine Missed menses , unspecified gestational age Ordered: 04/04/2024[facility] HealthcareComment on above: Ordered: 04/04/2024Hepatitis B virus surface Ag [Presence] in Serum or Plasma by ImmunoassayHepatitis B surface antigen Lab Routine Missed menses , unspecified gestational age Ordered: 10/02/2024[facility] HealthcareComment on above: Ordered: 10/02/2024Hepatitis C virus Ab [Presence] in Serum or Plasma by ImmunoassayHepatitis C antibody Lab Routine Missed menses , unspecified gestational age Ordered: 04/04/2024[facility] HealthcareComment on above:Ordered: 04/04/2024Hepatitis C virus Ab [Presence] in Serum or Plasma by Immunoassay Hepatitis C antibody Lab Routine Missed menses , unspecified gestational age Ordered: 10/02/2024[facility] HealthcareComment on above:Ordered: 10/02/2024HIV-1/HIV-2 antigen/antibody combination immunoassayHIV-1 and HIV-2 antibodies Lab Routine Missed menses , unspecified gestational age Ordered: 04/04/2024[facility] HealthcareComment on above:Ordered: 04/04/2024 HIV-1/HIV-2 antigen/antibody combination immunoassayHIV-1 and HIV-2 antibodies Lab Routine Missed menses , unspecified gestational age Ordered: 10/02/2024[facility] HealthcareComment on above:Ordered: 10/02/2024Neisseria gonorrhoeae DNA [Presence] in Unspecified specimen by LELO with probe detection Neisseria gonorrhea DNA probe, direct Lab Routine Vaginal bleeding Vaginal discharge Ordered: 06/23/2024[facility] HealthcareComment on above:Ordered: 06/23/2024 Neisseria gonorrhoeae DNA [Presence] in Unspecified specimen by LELO with probe detectionNeisseria gonorrhea DNA probe, direct Lab Routine Vaginal discharge Ordered: 11/20/2024[facility] HealthcareComment on above:Ordered: 11/20/2024Reagin Ab [Presence] in Serum by RPRRPR Lab Routine Missed menses , unspecified gestational age Ordered: 04/04/2024[facility] HealthcareComment on above:Ordered: 04/04/2024eagin Ab [Presence] in Serum by RPRRPR Lab Routine Missed menses , unspecified gestational age Ordered: 10/02/2024[facility] HealthcareComment on above:Ordered: 10/02/2024Rubella antibody, IgGRubella antibody, IgG Lab Routine Missed menses , unspecified gestational age Ordered: 04/04/2024 [facility] HealthcareComment on above:Ordered: 04/04/2024ubella antibody, IgGRubella antibody, IgG Lab Routine Missed menses , unspecified gestational age Ordered: 10/02/2024[facility] HealthcareComment on above:Ordered: 10/02/2024 SURESWAB(R) ADVANCED VAGINITIS PLUS, TMASURESWAB(R) ADVANCED VAGINITIS PLUS, TMA Pathology and Cytology Routine Vaginal bleeding Vaginal discharge Ordered: 06/23/2024[facility] Work Phone: comment on above:Ordered: 06/23/2024SURESWAB(R) ADVANCED VAGINITIS PLUS, TMASURESWAB(R) ADVANCED VAGINITIS PLUS, TMA Pathology and Cytology Routine Vaginal discharge Ordered: 11/20/2024[facility] Work Phone: comment on above:Ordered: 11/20/2024Thyrotropin [Units/volume] in Serum or PlasmaTSH Lab Routine Hypothyroidism (acquired) ([facility] Ordered: 04/04/2024[facility] HealthcareComment on above:Ordered: 04/04/2024 Thyrotropin [Units/volume] in Serum or PlasmaTSH Lab Routine History of thyroid disease Ordered: 06/02/2024[facility] Work Phone: comhmrd on above:Ordered: 06/02/2024Thyrotropin [Units/volume] in Serum or PlasmaTSH Lab Routine Thyroid disease ([facility]) Ordered: 10/02/2024[facility] HealthcareComment on above:Ordered: 10/02/2024 Thyrotropin [Units/volume] in Serum or PlasmaTSH Lab Routine Second trimester ([facility]) Thyroid disease Ordered: 12/11/2024[facility] Work Phone: comment on above:Ordered: 12/11/2024UA DIP, URINE (POC)UA DIP, URINE (POC) Lab Routine Infective urethritis Ordered: 08/01/2021 [facility] Work Phone: Comment on above:Ordered: 08/01/2021Vitamin D 1,25 dihydroxyVitamin D 1,25 dihydroxy Lab Routine Low vitamin D level Ordered: 04/04/2024[facility] HealthcareComment on above:Ordered: 04/04/2024 End: 63-07-9117Zorfnsk D 25 hydroxyVitamin D 25 hydroxy Lab Routine Insulin controlled gestational diabetes mellitus (GDM) in second trimester 1 Occurrences starting 12/03/2024 until 12/03/2025[facility] Work Phone: comment on above:1 Occurrences starting 12/03/2024 until 12/03/2025[facility] Immunizations Immunization DateImmunizationNotesCare DeftqdnrGvqsufbb65-97-4818uxycizait virus vaccine, unspecified formulationKristofer Calix MD Work Phone: [facility] HospitalGhgpen25-23-0329yydyoxc toxoid, reduced diphtheria toxoid, and acellular pertussis vaccine, adsorbedMa Sand Work Phone: [facility] HospitalNEGATED: Highlighted row has not occurred!51-06-4983epivnkyco virus vaccine, unspecified formulationScott KAPLE [phone]-BshkzPremier Health [facility] Primary CareNEGATED: Highlighted row has not occurred!34-27-9824wfbcartcj virus vaccine, unspecified formulationPERNELL LONGORIA [phone]-CsnttPremier Health [facility] [place] Payers DatePayer CategoryPayerPolicy [id number] 2021Medicaid [place] [employer] [id number] 2020-Present [phone] [address] [place] [address] [id number] 2021Medicaid [id number] 2.16.840.1.380150.3.57[id number] 2.16.840.1.320069.3.57[id number] 2.16.840.1.397320.3.579.2.93578-94-6333Uucnigt1992795 2.16.840.1.771158.3.579.2.28966-23-9092Ebznfqe7412888 2.16.840.1.462325.3.579.2.80715-81-1598Rhtjopi5852221 2.16840.1.368680.3.579.2.72052-94-0136Hcijcfk3082141 2.16840.1.133902.3.579.2.30534-60-5583Ubnuqfv9917835 2.16840.1.866699.3.579.2.46247-63-3372Mlhzbyu8913759 2.16840.1.888070.3.579.2.22245-02-0331Wyiunyd1204170 2.16840.1.608341.3.579.2.16986-68-2503Hywihrb8739064 2.16840.1.379287.3.579.2.87204-81-0388Nmcmuwq1412634 2.16840.1.437207.3.579.2.19975-64-0709Fpxozuw3882570 2.16840.1.527371.3.579.2.08286-17-2155Tzqfvcp4355714 2.16840.1.510116.3.579.2.71262-80-1188Asqcblm3997900 2.16840.1.636948.3.579.2.73688-51-6233Qlxmxfs7866245 2.16840.1.501355.3.579.2.86053-97-7314Itrvuqz3307070 2.16840.1.850078.3.579.2.79629-84-4164Lofkujn1945506 2.16840.1.644520.3.579.2.82910-92-9344Tlaagjd6283888 2.16840.1.785918.3.579.2.11373-00-3005Lsxgmjv9185248 2.16840.1.692879.3.579.2.30090-47-8628Vvyavzn0422284 2.840.1.016511.3.579.2.56411-09-1604Rwwegtz9602664 2.840.1.084279.3.579.2.40111-60-3551Nywaxxb7286320 2.840.1.625737.3.579.2.73873-36-3403Mxrysye3650595 2.840.1.323117.3.579.2.70278-20-7277Xlqrivn8618439 2.840.1.408980.3.579.2.35636-27-5275Phscgdv8747376 2.840.1.097549.3.579.2.99644-69-0351Aygoeop7279603 2.840.1.124861.3.579.2.44407-48-2490Egxcptc3535504 2.16840.1.501173.3.579.2.05763-26-0094Fuxohhg1599630 2.840.1.077674.3.579.2.57690-07-7668Jpsyuut19243293 2.16840.1.987497.3.579.2.92058-13-3958Jjyryxx95952056 2.16840.1.503691.3.579.2.90925-71-0897Okjsonx66015382 2.16840.1.066230.3.579.2.20855-07-2534Ikygjnz45298783 2.16.840.1.683114.3.579.2.04231-42-5438Gmfbkze84801689 2.16840.1.380656.3.579.2.31454-07-1050Xktzfkd88338236 2.16840.1.258435.3.579.2.10270-43-8173Nkdfpgi55110863 2.840.1.799396.3.579.2.59431-37-1179Jrpfxyg72182165 2.0.1.752917.3.579.2.84778-80-6148Knqzuov22090885 2.0.1.793271.3.579.2.70259-68-5443Vlypouz15651207 2.16840.1.033176.3.579.2.30223-59-7010Tdlxpxg83180890 2.16840.1.361974.3.579.2.40911-02-0746Nkdepkr13315982 2.840.1.987765.3.579.2.86651-32-3621Kwznxfj78002737 2.16840.1.903771.3.579.2.61911-41-1823Pqkkibp71677886 2.16840.1.695702.3.579.2.23199-51-9894Bvilvpg39606749 2.16840.1.888334.3.579.2.44137-59-9478Vkdbqfo94619251 2.16840.1.442370.3.579.2.00398-23-5710Bmonitd20109242 2.16840.1.941731.3.579.2.56007-76-0817Drkydww88138553 2.16840.1.517578.3.579.2.34754-22-3077Pcrzrvl94807152 2.16840.1.620529.3.579.2.94345-65-9870Oqhzwod17024508 2.16840.1.208846.3.579.2.38051-17-9745Vnoxpfv25516047 2.160.1.536311.3.579.2.16822-34-2616Ygusudn09353232 2.840.1.567682.3.579.2.44965-36-0945Zrewtto53959205 2.0.1.426262.3.579.2.57787-65-5847Oymigvl95152161 2.840.1.563543.3.579.2.88878-86-4068Ujnigpe06540125 2.0.1.336736.3.579.2.18224-62-4525Frvdqli85010892 2.840.1.973450.3.579.2.35262-80-9985Tyecckt03077659 2.0.1.590316.3.579.2.22252-16-2823Rmqlgbl24624702 2.16840.1.786134.3.579.2.90223-85-8071Erucbfu41356837 2.840.1.427667.3.579.2.06503-61-3422Lyemddq09368260 2.16840.1.163653.3.579.2.36155-72-5226Ejevbib62620935 2.16840.1.602411.3.579.2.68981-27-7059Wetgthg80930607 2.16.840.1.920194.3.579.2.76343-21-7922Wxvanoy04272562 2.16.840.1.803635.3.579.2.61801-49-3522Mxhgddh71573453 2.16840.1.379200.3.579.2.68091-48-7152Emiivnq08670617 2.16840.1.055091.3.579.2.49581-21-2378Tvtxius01993479 2.16840.1.711569.3.579.2.92202-50-5529Hkrllbp38138175 2.16840.1.328500.3.579.2.85877-05-5661Ygcsiot06125595 2.16840.1.055743.3.579.2.31247-59-6270Fjlyktc50142756 2.16840.1.410830.3.579.2.95616-28-0921Cfslmff12246174 2.16840.1.578369.3.579.2.64118-51-1144Vaegmhr57502231 2.840.1.141103.3.579.2.93733-75-3178Krksztj88568775 2.16840.1.567690.3.579.2.66581-12-9905Accqlbl34338654 2.16840.1.052717.3.579.2.42225-53-6951Epnafbx62165513 2.16840.1.448277.3.579.2.80696-95-2855Rjdigwy362940702 2.16840.1.746470.3.579.2.020208-59-8761Pvjflef039725462 2.16840.1.375004.3.579.2.852800-37-7618Nncxncl491014985 2.16840.1.396143.3.579.2.599801-86-4072Xgavlhv41780017 2.16840.1.810052.3.579.2.334806-62-9017Rogptfy25563794 2.16840.1.734058.3.579.2.418456-02-8726Dmjavma33251986 2.0.1.644605.3.579.2.003583-09-4578Rjfbypn75736750 2.840.1.485057.3.579.2.953718-88-4278Abobzdm92861300 2.840.1.461899.3.579.2.512237-35-2436Ccxnrmp81458191 2.840.1.792995.3.579.2.009187-46-3141Gcpeybb43902877 2.0.1.845613.3.579.2.207897-47-8880Ebjvcqn70623082 2.840.1.729502.3.579.2.668646-24-7001Lgbewcz1441693 2.0.1.876632.3.579.2.367768-56-0068Hfuucwf0646181 2.840.1.033232.3.579.2.447506-93-2533Woaoajt4978198 2.840.1.437019.3.579.2.502415-49-6642Nrhcdqm0883269 2.16840.1.446732.3.579.2.969332-12-3615Tuwlykr3716579 2.840.1.034606.3.57[id number] 2.16.840.1.561289.3.57[id number] 2.16.840.1.153093.3.57[id number] 2.16.840.1.595740.3.57[id number] 2.16.840.1.294381.3.579.[id number] 2.16.840.1.965782.3.57[id number] 2.16.840.1.409878.3.57[id number] 2.16.840.1.553331.3.57[id number] 2.16.840.1.316145.3.57[id number] 2.16.840.1.367629.3.579.2.812398-50-0365Crpi-[id number] [id number] 1.2.840.924141.1.13.239.2.7.3.613097.315Unknown [id number] 2.840.1.874479.3.579.2.593 Social History DateTypeDetailFacilityStart: 09-10-2017 End: 44-29-5884Xrfffkw smoking status NHISNever smoked tobaccoOhiohealth [facility] Start: 09-10-2017 End: 13-77-9692Gbimphy use and exposureSmokeless tobacco non-userSamaritan Hospitaltart: 08-01-2021 End: 10-42-6395Kvqymwp intakeCurrent non-drinker of alcohol (finding)[facility]: 39-43-2104Tdk Assigned At BirthNot on fileSamaritan Hospitaltart: 07-22-2021 End: 96-34-1538Wlxtvexw to SARS-CoV-2 (event)Not sureSamaritan Hospitaltart: 05-28-2017 End: 70-37-7335Fbghrzk smoking statusNeC[facility] Start: 06-10-2020 End: 64-15-2018Vie Assigned At [facility] Start: 11-21-2021 End: 71-73-9229Pxgcjzw intakeEx-drinker (finding)[facility] [employer] Work Phone: start: 08-14-1270Kbfcqsf SDOH Alcohol Comment occasionallyFLAGSTAFF MEDICAL [facility]ENTER [employer] Work Phone: start: 25-71-3400VqhasebjLYK BANNER ESTRELLA MEDICAL CENTERStyleJam Work Phone: start: 06-10-2020 End: 06-62-0855Uauemlg of Social functionSamaritan Hospitaltart: 04-04-2024 End: 27-79-2739Ayddeovwn beverage intakeLifetime non-drinker (finding)[facility] HealthcareTobacco smoking status NHISUnknown if ever smokedOhiohealth [facility] Work Phone: Start: 11-27-2018 End: 54-54-5953RxsCjrkbx (finding)[facility]: 17-72-2758Qqr Assigned At [facility] Medical Equipment Procedure CodeEquipment CodeEquipment Original TextEquipment IdentifierDates [id number]: 10-30-2024 End: each by In Vitro route Daily Use to check FSBS four times daily [id number]: 10-30-2024 End: 76-40-9407Zzy a new needle with each injection ( 1- 5 times per day) [id number]: 12-03-2024 Functional Status IcqxByrcgpsqrfRhuexeXguxpjzv81-10-7059Uszrwrpwsc StatusN/[facility]02-20-2025Functional StatusN/[facility] Hxxcz32-59-6155Wxmuwtqemz StatusN/[facility] Primary [place]94-23-2119Mheklqbjkk StatusN/[facility]10-05-2024Functional StatusN/[facility] 19-80-6363Yclfioxpyo StatusN/[facility]06-25-2024 Functional StatusN/[facility]05-31-2024Functional StatusN/[facility]04-05-2024Functional Status N/[facility] [id number] StatusN/[facility]10-19-2023Functional StatusN/[facility]06-23-2023Functional StatusN/[facility] Primary [facility] Clinical Notes 07-26-2019 to 02-16-2025 Note Date & [id number] History of Present illness Narrative* Sam Callahan MD MPH - 02/16/2025 1:45 PM EDT Images from the original note were not included. ADULT RHEUMATOLOGY CLINIC NOTE [id number] [address] Patient Name: Sanna Rendon Subjective Reason for Rheumatology Consultation: 22 weeks gestation, antiphospholipid syndrome complicating History of Present Illness: Sanna Rendon is a 39 y.o. female who presents as a referral from her maternal medicine specialist (Dr. Noyola) for concern of antiphospholipid syndrome in the setting of current . The patient presented to the office today accompanied by her . She has been following with two outside specialists (Neurology at [facility] and Hematology at [facility]) for management of her APS. The patient notes that she experienced symptoms of a CVA back in 2016 where she had facial droop, abnormal speech [...] health issues unclear exact diagnoses Note from [facility] Provider (Dr. Noyola): Recent note from Neurologist: Subjective Review of [...] of Cytopenias [] Bruising tendency [] History of DVT/PE All non checked boxes, patient denies. All [...] 4 times daily . blood-glucose sensor (FREESTYLE JENIFER 3 PLUS SENSOR) device Wear for 15 [...] age) multigravida 35+ Antiphospholipid syndrome Hypothyroid Stroke ([facility]) Gestational diabetes mellitus (GDM) in second trimester [...] Anemia Antiphospholipid antibody syndrome Cerebral infarction, unspecified ([facility]) 05/16/2019 Hypothyroid Migraine without aura and without status migrainosus, not intractable 09/12/2017 Stroke ([facility]) 2016 reviewed. Social History Social History Narrative [...] kg (209 lb) LMP 07/28/2024 BMI 33.73 kg/m : reviewed GEN: AOx3, NAD EYES: Clear [...] 29 weeks gestation of Overall Impression: Sanna Rendon is a 39 y.o. female patient with [...] weeks . She is currently following with [facility] for her , neurology through the [employer] system, and hematology through [facility]. Based on extensive review of her [...] Expiration Date: 02/16/2026 Release to patient via MyChart?: Immediate [1] Complement profile (C3 AND C4) Standing Status: Future Expiration Date: 02/16/2026 Release to patient via MyChart?: Immediate [1] DNA double-stranded (dsDNA) Abs by Rene angel IFA Standing Status: Future Expiration Date: 02/16/2026 Release to patient via MyChart?: Immediate [1] KELLEN Panel Standing Status: Future Expiration Date: 02/16/2026 Release to patient via MyChart?: Immediate [1] Treatment Plan: -if the patient [...] notes to her other specialists including her M physician, neurologist, and hematology provider Health Maintenance: -The patient should continue to follow with their PCP for age and risk factor appropriate cancer screening and immunizations. Follow-up: -4-6 weeks, video visit is OK Sam Callahan MD, MPH [facility] Rheumatology [address] [place] [address] Total sziw-jh-[id number] time was 55 minutes with more than [...] you for your understanding. documented in this encounterAdena Pike Medical Center10-14-2025 Miscellaneous Notes* Telephone Encounter - PRISCILLA Sutherland - 02/10/2025 [...] in blood sugars weekly. documented in this encounterDelaware County HospitalOperax Regional Medical Center [id number] Telephone encounter Note* Telephone Encounter - PRISCILLA Sutherland - 02/10/2025 [...] Continue to send in blood sugars weekly. [employer] Work Phone: [phone] History of Present illness Narrative* Rosi Murray LPN - 02/09/2025 10:30 AM EDT Reason for Appointment: Patient ID: Sanna Rendon [...] Diagnosis Date Noted 32 weeks gestation of ([facility]) 11/28/2019 Abdominal pain 06/12/2023 Acute bronchitis due to infection 06/12/2023 Acute on chronic vesicular eczema of hands and feet 11/15/2023 Anemia complicating childbirth ([facility]) 01/16/2020 Anticoagulant long-term use 02/22/2020 Antiphospholipid antibody positive 09/10/2017 Antiphospholipid antibody syndrome ([facility]) 07/07/2019 Anxiety 06/12/2023 Blood pressure elevated without history of HTN 11/15/2023 BMI 37.0-37.9, adult 11/15/2023 Cerebral infarction, unspecified ([facility]) 05/16/2019 Cerebrovascular accident (CVA) due to stenosis of middle cerebral artery ([facility]) 02/22/2020 Cervicalgia 02/05/2019 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 ([facility]) 01/08/2020 Coagulation defect, unspecified ([facility]) 02/05/2019 Cold intolerance 11/15/2023 Deficiency of other specified B group vitamins 05/16/2019 Deviated septum 11/15/2023 Dizziness and giddiness 02/05/2019 Dry mouth 11/15/2023 Dysfunction of eustachian tube 06/12/2023 Dyspnea 06/12/2023 Elevated blood pressure reading 11/15/2023 Encounter for supervision of normal , unspecified, first trimester ([facility]) 05/29/2019 Environmental allergies 11/15/2023 Fatigue 12/29/2016 First degree perineal laceration during delivery ([facility]) 01/16/2020 Frequency of micturition 02/19/2019 Genitourinary symptoms 08/19/2021 Gestational diabetes mellitus (GDM), antepartum ([facility]) 01/26/2022 H/O: hypothyroidism 11/15/2023 Hematochezia 06/12/2023 History [...] anemia 01/16/2020 Irregular uterine bleeding 11/15/2023 problem ([facility]) 06/12/2023 Less than 8 weeks gestation of ([facility]) 06/05/2019 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 02/05/2019 Migraine without aura and without status migrainosus, not intractable 09/12/2017 Morbid obesity ([facility]) 11/15/2023 Muscle fasciculation 08/19/2021 Nasal polyps 11/15/2023 Non-smoker 11/15/2023 NEETA (obstructive sleep apnea) 11/15/2023 Other acute postprocedural pain 02/03/2019 Other general symptoms and signs 10/28/2019 Other immediate hemorrhage ([facility]) 01/16/2020 Other specified noninflammatory disorders of vagina 02/21/2019 Pain in joint 12/29/2016 Palpitations 08/26/2019 Paresthesia of bilateral legs 11/15/2023 Pelvic and perineal pain 02/01/2019 Personal history of urinary (tract) infections 01/16/2020 Pre-diabetes 11/15/2023 Primary hypercoagulable state ([facility]) 08/01/2022 Pruritus, unspecified 01/02/2020 Psychogenic hyperventilation 06/12/2023 Raised antibody titer 09/25/2017 Right lower quadrant pain 11/15/2023 Right otitis externa 11/15/2023 Salivary gland swelling 11/15/2023 Single live ([facility]) 01/15/2020 Snoring 11/15/2023 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) 12/30/2019 Suspected severe acute respiratory syndrome coronavirus 2 (SARS-CoV-2) infection 06/12/2023 SVT (supraventricular tachycardia) ([facility]) 08/26/2019 Syncope and collapse 06/03/2018 Other bacterial infections of unspecified site 06/27/2019 Thrombocytopenia, unspecified 11/20/2019 Hypoglycemia 06/12/2023 Unspecified condition associated with female genital organs and menstrual cycle 05/09/2019 Unspecified ovarian cyst, right side 02/06/2019 Urinary tract infection 10/16/2019 Referred otalgia of right ear 11/19/2023 LPRD (laryngopharyngeal reflux disease) 11/19/2023 H/O loss 01/05/2025 Multigravida of advanced maternal age in second trimester ([facility]) 01/05/2025 Thyroid disease 01/05/2025 Resolved Ambulatory Problems Diagnosis Date Noted No Resolved Ambulatory Problems Past Medical History: Diagnosis Date AMA (advanced maternal age) multigravida 35+ ([facility]) Anemia Antiphospholipid syndrome ([facility]) Gestational diabetes ([facility]) Heartburn Hypothyroid Stroke ([facility]) HISTORY PAST MEDICAL HISTORY SOCIAL HISTORY Past Medical History: Diagnosis Date AMA (advanced maternal age) multigravida 35+ ([facility]) Anemia Antiphospholipid syndrome ([facility]) Gestational diabetes ([facility]) Heartburn Hypothyroid Stroke ([facility]) Social History Tobacco [...] drainage of cyst WISDOM TOOTH EXTRACTION 2007 [place] teeth REVIEW OF SYSTEMS Review of Systems: [...] nursing note reviewed. Exam conducted with a computer installer present. Vitals: Estimated body mass index is 34.12 kg/m as calculated from the following: Height as of 11/19/23: 5' 6 . Weight as of this encounter: 211 lb 6.4 oz. BP: 124/76 Patient's last menstrual period was 07/28/2024. ASSESSMENT & PLAN ICD-10-CM 1. Third trimester ([facility]) Z34.93 2. 28 weeks gestation of ([facility]) Z3A.28 CBC and differential POCT urinalysis dipstick manually resulted Patient presents today for a routine obstetrics appointment. Patient is currently 28w0d with a Estimated Date of Delivery: 1/5/26. Discussed plan for lovenox and last dose [...] givenorders and they were also faxed to [facility] and [facility] Scheduling. Patient to return to clinic in 2 weeks for routine OB appointment. Documented by Rosi Murray LPN on behalf of: Wilton Herrmann DO documented in this encounterEllis Fischel Cancer [id number] History of Present illness Narrative* Mukul Noyola MD - 02/06/2025 2:00 PM EDT Images from the original note were not included. Video Visit via Real-time Synchronous Audiovisual Provider Location: [facility] [address] [address] Patient Location: Other Home Patient Location Land Appraiser: None Video Visit Consent Statement: I discussed [...] that there are some limitations compared to thjb-gk-[id number] evaluations. We elected to proceed. [facility] Maternal- Medicine Office Note Reason For [...] will be undergoing genetic testing through the airplane mechanic apprentice. There is family history of hypospadias and [...] Anemia Antiphospholipid antibody syndrome Cerebral infarction, unspecified ([facility]) 05/16/2019 Hypothyroid Migraine without aura and without status migrainosus, not intractable 09/12/2017 Stroke ([facility]) 2015 PSHIST: Past Surgical History: Procedure Laterality Date [...] to continue to send blood glucoses to [facility] to review - continue Lovenox 40 [...] Mukul Noyola MD, FACOG (she/hers) Maternal- Medicine [place] [id number] [facility] [address] [place] [address] This document was created with [employer] technology. Though I make every effort to review the dictation as it is transcribed, on occasion the spoken word can be misinterpreted by the technology leading to inappropriate words, phrases, or sentences. This note is addressed to the requesting provider as a consultation for clinical guidance. Specificmedical abbreviations are occasionally used and those are generally approved by the [place]?Board of?Obstetrics and?Gynecology?as well as?Elizabeth guzman abbreviations. The above plan of care was based solely on the diagnoses for which a consultation was requested. ?More frequent testing may be indicated based on her other medical/obstetrical conditions. The management of other or medical conditions is beyond the scope of requested consultation and will c ontinue to be followed by the primary account management assistant or primary care provider. Note to patient: [...] opinion of the practitioner. documented in this encounterDelaware County HospitalMPOWER Mobile [id number] NoteEchocardiology Procedure Exam Date/Time Accession # Ordering Echo Transthoracic 02/03/2025 10:00 EDT [id number] Wilton HERRMANN DO Complete CPT code 37354 06179 Reason for Exam (Echo Transthoracic Complete) Dizziness and giddiness E07.9, O09.522 [place] [address] Adult Echocardiogram Report Name: SANNA RENDON Study Date: 02/03/2025 08:09 AM BP: 116/76 mmHg Patient Location: [facility] F HR: 84 : 1985 Gender: Female Height: 66 in Age: 39 yrs Ethnicity: T Weight: 205 lb Reason For Study: Dizziness and giddiness E07.9, O09.522 R42 BSA: 2.0 m2 History: 27 weeks , Thyroid disease, Gestational diabetes, CVA Ordering Physician: Wilton HERRMANN Referring Physician: Wilton HERRMANN Performed By: Marry Peng [facility] Interpretation Summary There is Trace mitral regurgitation. The left ventricle is normal in size. Ejection Fraction = 60-65%. The left atrium is mildly dilated. The right ventricular systolic function is normal. The right ventricle is normal size. Procedure A complete two-dimensional transthoracic echocardiogram was performed (2D, M- mode, spectral and color flow Doppler). Study quality [...] Signed by: Merrick Watkins MD Transcribed by: [facility] Technologist: [facility]09-22-2025 History of Present illness Narrative* Celia Keith, SHELLY - 01/19/2025 9:00 AM EDT Reason for Appointment: Patient ID: Sanna Rendon [...] Diagnosis Date Noted 32 weeks gestation of ([facility]) 11/28/2019 Abdominal pain 06/12/2023 Acute bronchitis due to infection 06/12/2023 Acute on chronic vesicular eczema of hands and feet 11/15/2023 Anemia complicating childbirth ([facility]) 01/16/2020 Anticoagulant long-term use 02/22/2020 Antiphospholipid antibody positive 09/10/2017 Antiphospholipid antibody syndrome ([facility]) 07/07/2019 Anxiety 06/12/2023 Blood pressure elevated without history of HTN 11/15/2023 BMI 37.0-37.9, adult 11/15/2023 Cerebral infarction, unspecified ([facility]) 05/16/2019 Cerebrovascular accident (CVA) due to stenosis of middle cerebral artery ([facility]) 02/22/2020 Cervicalgia 02/05/2019 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 ([facility]) 01/08/2020 Coagulation defect, unspecified ([facility]) 02/05/2019 Cold intolerance 11/15/2023 Deficiency of other specified B group vitamins 05/16/2019 Deviated septum 11/15/2023 Dizziness and giddiness 02/05/2019 Dry mouth 11/15/2023 Dysfunction of eustachian tube 06/12/2023 Dyspnea 06/12/2023 Elevated blood pressure reading 11/15/2023 Encounter for supervision of normal , unspecified, first trimester ([facility]) 05/29/2019 Environmental allergies 11/15/2023 Fatigue 12/29/2016 First degree perineal laceration during delivery ([facility]) 01/16/2020 Frequency of micturition 02/19/2019 Genitourinary symptoms 08/19/2021 Gestational diabetes mellitus (GDM), antepartum ([facility]) 01/26/2022 H/O: hypothyroidism 11/15/2023 Hematochezia 06/12/2023 History [...] anemia 01/16/2020 Irregular uterine bleeding 11/15/2023 problem ([facility]) 06/12/2023 Less than 8 weeks gestation of ([facility]) 06/05/2019 residential (current) use of 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/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 02/05/2019 Migraine without aura and without status migrainosus, not intractable 09/12/2017 Morbid obesity ([facility]) 11/15/2023 Muscle fasciculation 08/19/2021 Nasal polyps 11/15/2023 Non-smoker 11/15/2023 NEETA (obstructive sleep apnea) 11/15/2023 Other acute postprocedural pain 02/03/2019 Other general symptoms and signs 10/28/2019 Other immediate hemorrhage ([facility]) 01/16/2020 Other specified noninflammatory disorders of vagina 02/21/2019 Pain in joint 12/29/2016 Palpitations 08/26/2019 Paresthesia of bilateral legs 11/15/2023 Pelvic and perineal pain 02/01/2019 Personal history of urinary (tract) infections 01/16/2020 Pre-diabetes 11/15/2023 Primary hypercoagulable state ([facility]) 08/01/2022 Pruritus, unspecified 01/02/2020 Psychogenic hyperventilation 06/12/2023 Raised antibody titer 09/25/2017 Right lower quadrant pain 11/15/2023 Right otitis externa 11/15/2023 Salivary gland swelling 11/15/2023 Single live ([facility]) 01/15/2020 Snoring 11/15/2023 Speech and language deficit [...] drainage of cyst WISDOM TOOTH EXTRACTION 2007 [place] teeth REVIEW OF SYSTEMS Review of Systems: [...] nursing note reviewed. Exam conducted with a computer installer present. Vitals: Estimated body mass index is 34.14 kg/m as calculated from the following: Height as of 11/19/23: 5' 6 . Weight as of this encounter: 211 lb 8 oz. BP: 124/70 Patient's last menstrual period was 07/28/2024. ASSESSMENT & PLAN ICD-10-CM 1. Second trimester ([facility]) Z34.92 POCT urinalysis dipstick manually resulted 2. 25 weeks gestation of ([facility]) Z3A.25 3. Gestational diabetes mellitus (GDM), antepartum, gestational diabetes method of control unspecified ([facility]) O24.419 metFORMIN XR (Glucophage-XR) 500 MG 24 [...] to switch her [facility]. Growth ultrasound at28 weeks as well as NST and BPP at 28 weeks. Documented by Celia Keith NP on behalf of: Wilton Herrmann DO documented in this encounterEllis Fischel Cancer [id number] History of Present illness Narrative* Roxana Smith PA-C - 01/13/2025 10:00 AM EDT Maternal- Medicine Consultation VIDEO Patient is present at home , provider present at [facility] HISTORY OF PRESENT ILLNESS: Sanna Rendon is [...] past week very few PPL and PPD valuesrecorded . States she was told 'those numbers [...] abdominal pain, nausea, vomiting, vaginal bleeding, and vaginaldischarge PHYSICAL EXAMINATION: Gen: NAD DISCUSSION Gestational diabetes is a is a state of carbohydrate intolerance with subsequently insulin resistance and hyperglycemia. This is a malfunction or dysfunction of glucose sensors in the liver with inappropriate release of glucose followed by hyperinsulinemia followed by normal insulin secretion and th en relatively deficiency in insulin secretion resulting in [...] to offspring from poor maternal glycemic control includ e: obesity, cardiovascular disease, impaired glucose tolerance and [...] more likely to fail compared to insulin. residential data on children whose mothers took oral hypoglycemic agents while is limited. Medication is typically initiated when >20-30% of the blood glucose values in one week are outof range. Risks and side effects of both [...] signs/symptoms of hypoglycemia, and examples of treatment ofhypoglycemia (15/15 rule). Discussed her current diet and [...] in regards to medication - See previous KATIA ROSARIO notes - MFM and hematology recommend therapeutic [...] so she can have them done at [place] - Anatomy survey with Tai -followsup scheduled 02/05 - growth ultrasounds every [...] scheduled - nephrology referral previously recommended- previous KATIA ROSARIO had sent referral to Dr Zimmerman - provided patient with their number to call - scheduled with rheumatology 02/16 Follow up in 3 weeks with Maternal- Medicine MD and US as scheduled . I asked her to keep sending values to us weekly by e-mail to: or by fax to: [phone] Roxana Smith PA-C Maternal- Medicine Office phone: [phone] Roxana Smith PA-C 01/13/25 1031 documented in this encounterAdena Pike Medical Center09-16-2025 Miscellaneous Notes* Medical Student - Mike Aquino - 01/13/2025 10:00 AM EDT Disclaimer: This note is intended for educational [...] the legal medical record. documented in this encounterAdena Pike Medical Center09-16-2025 Progress note* Medical Student - Mike Aquino - 01/13/2025 10:00 AM EDT Disclaimer: This note is intended for educational [...] a part of the legal medical record. [facility]09-12-2025 Miscellaneous Notes* Telephone Encounter - Mukul Noyola MD - 01/09/2025 4:46 PM EDT I called Dr. Ojeda. He is recommendation is that she is on a therapeutic dose of Lovenox however the patient has been declining and only accepting 40mg daily. He further addressed that if she is declining the therapeutic dose of Lovenox at a minimum to be on80 mg a day. I called the patient [...] answered. MUKUL NOYOLA MD documented in this encounterAdena Pike Medical Center09-12-2025 Telephone encounter Note* Telephone Encounter - Mukul Noyola MD - 01/09/2025 4:46 PM EDT I called Dr. Ojeda. He is recommendation is that she is on a therapeutic dose of Lovenox however the patient has been declining and only accepting 40mg daily. He further addressed that if she is declining the therapeutic dose of Lovenox at a minimum to be on80 mg a day. I called the patient [...] questions and concerns answered. MUKUL NOYOLA MD [facility]09-10-2025 Miscellaneous Notes* Telephone Encounter - Jacque Pat RN - 01/07/2025 10:29 AM EDT Manager Psychiatry called and spoke to patient yesterday to discuss a several topics. Manager Psychiatry asked if patient wanted another follow up cervical length. Patient declined. We also discussed her insulin dosage. Patient had not started her NPH insulin yet because her pharmacy did not notify her it was ready for pickup. She asked if she could start at 4 units instead of 8. She is worried because she had a bad reaction when she took Lantus previously. Manager Psychiatry discussed this with Dr. Noyola and she is okay with her starting at a lower dose for now. Lastly, proposal lead writer notified patient that Dr. Noyola wanted to discuss with her salsa dance instructor her Lovenox dosing. Patient stated there was some confusion if she should be on 40mg or 80mg, patient prefers to be on the lower dose. Patient is seeing a Dr. Calix from the [facility] hematology office in [place]. Notified patient that we will reach out to her salsa dance instructor to discuss her dosing. documented in this encounterDelaware County HospitalWhale Path09-10-2025 Telephone encounter Note* Telephone Encounter - Jacque Pat RN - 01/07/2025 10:29 AM EDT Manager Psychiatry called and spoke to patient yesterday to discuss a several topics. Manager Psychiatry asked if patient wanted another follow up cervical length. Patient declined. We also discussed her insulin dosage. Patient had not started her NPH insulin yet because her pharmacy did not notify her it was ready for pickup. She asked if she could start at 4 units instead of 8. She is worried because she had a bad reaction when she took Lantus previously. Manager Psychiatry discussed this with Dr. Noyola and she is okay with her starting at a lower dose for now. Lastly, proposal lead writer notified patient that Dr. Noyola wanted to discuss with her salsa dance instructor her Lovenox dosing. Patient stated there was some confusion if she should be on 40mg or 80mg, patient prefers to be on the lower dose. Patient is seeing a Dr. Calix from the [facility] hematology office in [place]. Notified patient that we will reach out to her salsa dance instructor to discuss her dosing. [facility] Live [id number] History of Present illness Narrative* Rosi Murray LPN - 01/05/2025 2:40 PM EDT Reason for Appointment: Patient ID: Sanna Rendon [...] Diagnosis Date Noted 32 weeks gestation of ([facility]) 11/28/2019 Abdominal pain 06/12/2023 Acute bronchitis due to infection 06/12/2023 Acute on chronic vesicular eczema of hands and feet 11/15/2023 Anemia complicating childbirth [facility] [facility]) 01/16/2020 Anticoagulant long-term use 02/22/2020 Antiphospholipid antibody positive 09/10/2017 Antiphospholipid antibody syndrome ([facility]) 07/07/2019 Anxiety 06/12/2023 Blood pressure elevated without history of HTN 11/15/2023 BMI 37.0-37.9, adult 11/15/2023 Cerebral infarction, unspecified ([facility]) 05/16/2019 Cerebrovascular accident (CVA) due to stenosis of middle cerebral artery ([facility]) 02/22/2020 Cervicalgia 02/05/2019 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 ([facility]) 01/08/2020 Coagulation defect, unspecified ([facility]) 02/05/2019 Cold intolerance 11/15/2023 Deficiency of other specified B group vitamins 05/16/2019 Deviated septum 11/15/2023 Dizziness and giddiness 02/05/2019 Dry mouth 11/15/2023 Dysfunction of eustachian tube 06/12/2023 Dyspnea 06/12/2023 Elevated blood pressure reading 11/15/2023 Encounter for supervision of normal , unspecified, first trimester ([facility]) 05/29/2019 Environmental allergies 11/15/2023 Fatigue 12/29/2016 First degree perineal laceration during delivery ([facility]) 01/16/2020 Frequency of micturition 02/19/2019 Genitourinary symptoms 08/19/2021 Gestational diabetes mellitus (GDM), antepartum ([facility]) 01/26/2022 H/O: hypothyroidism 11/15/2023 Hematochezia 06/12/2023 History [...] anemia 01/16/2020 Irregular uterine bleeding 11/15/2023 problem ([facility]) 06/12/2023 Less than 8 weeks gestation of ([facility]) 06/05/2019 residential (current) use of 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/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 02/05/2019 Migraine without aura and without status migrainosus, not intractable 09/12/2017 Morbid obesity ([facility]) 11/15/2023 Muscle fasciculation 08/19/2021 Nasal polyps 11/15/2023 Non-smoker 11/15/2023 NEETA (obstructive sleep apnea) 11/15/2023 Other acute postprocedural pain 02/03/2019 Other general symptoms and signs 10/28/2019 Other immediate hemorrhage ([facility]) 01/16/2020 Other specified noninflammatory disorders of vagina 02/21/2019 Pain in joint 12/29/2016 Palpitations 08/26/2019 Paresthesia of bilateral legs 11/15/2023 Pelvic and perineal pain 02/01/2019 Personal history of urinary (tract) infections 01/16/2020 Pre-diabetes 11/15/2023 Primary hypercoagulable state ([facility]) 08/01/2022 Pruritus, unspecified 01/02/2020 Psychogenic hyperventilation 06/12/2023 Raised antibody titer 09/25/2017 Right lower quadrant pain 11/15/2023 Right otitis externa 11/15/2023 Salivary gland swelling 11/15/2023 Single live ([facility]) 01/15/2020 Snoring 11/15/2023 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) 12/30/2019 Suspected severe acute respiratory syndrome coronavirus 2 (SARS-CoV-2) infection 06/12/2023 SVT (supraventricular tachycardia) ([facility]) 08/26/2019 Syncope and collapse 06/03/2018 Other bacterial infections of unspecified site 06/27/2019 Thrombocytopenia, unspecified 11/20/2019 Hypoglycemia 06/12/2023 Unspecified condition associated with female genital organs and menstrual cycle 05/09/2019 Unspecified ovarian cyst, right side 02/06/2019 Urinary tract infection 10/16/2019 Referred otalgia of right ear 11/19/2023 LPRD (laryngopharyngeal reflux disease) 11/19/2023 H/O loss 01/05/2025 Multigravida of advanced maternal age in second trimester ([facility]) 01/05/2025 Thyroid disease 01/05/2025 Resolved Ambulatory Problems Diagnosis Date Noted No Resolved Ambulatory Problems Past Medical History: Diagnosis Date AMA (advanced maternal age) multigravida 35+ ([facility]) Anemia Antiphospholipid syndrome ([facility]) Gestational diabetes ([facility]) Heartburn Hypothyroid Stroke ([facility]) HISTORY PAST MEDICAL HISTORY SOCIAL HISTORY Past Medical History: Diagnosis Date AMA (advanced maternal age) multigravida 35+ ([facility]) Anemia Antiphospholipid syndrome ([facility]) Gestational diabetes ([facility]) Heartburn Hypothyroid Stroke ([facility]CC) Social History Tobacco [...] drainage of cyst WISDOM TOOTH EXTRACTION 2007 [place] teeth REVIEW OF SYSTEMS Review of Systems: [...] nursing note reviewed. Exam conducted with a computer installer present. Vitals: Estimated body mass index is 33.73 kg/m as calculated from the following: Height as of 11/19/23: 5' 6 . Weight as of this encounter: 209 lb. BP: 122/74 Patient's last menstrual period was 07/28/2024. ASSESSMENT & PLAN ICD-10-CM 1. Second trimester ([facility]) Z34.92 POCT urinalysis dipstick manually resulted 2. 23 weeks gestation of ([facility]) Z3A.23 3. Thyroid disease E07.9 Echocardiogram 2D complete ECG 12 lead unit performed Echocardiogram 2D complete 4. Gestational diabetes mellitus (GDM), antepartum, gestational diabetes method of control unspecified ([facility]) O24.419 Echocardiogram 2D complete ECG 12 lead unit performed Echocardiogram 2D complete 5. Multigravida of advanced maternal age in second trimester ([facility]) O09.522 Echocardiogram 2D complete ECG 12 lead [...] Paatient to continue to have MFM monitor glucoselevels and management. Documented by Rosi Murray LPN on behalf of: Wilton Herrmann DO documented in this encounterEllis Fischel Cancer [id number] History of Present illness Narrative* Jacque Pat RN - 01/05/2025 10:20 AM EDT NPH insulin prior authorization approved. Confirmed via telephone call with automated voice messaging system. Prior authorization number [id number] documented in this encounterAdena Pike Medical Center09-04-2025 History of Present illness Narrative* Mukul Noyola MD - 01/01/2025 2:30 PM EDT Images from the original note were not included. Video Visit via Real-time Synchronous Audiovisual Provider Location: [facility] AT [address] [address] Patient Location: Other [facility] Patient Location Land Appraiser: None Video Visit Consent Statement: I discussed [...] that there are some limitations compared to [id number] evaluations. We elected to proceed. [facility]- [...] will be undergoing genetic testing through the airplane mechanic apprentice. There is family history of hypospadias and [...] Anemia Antiphospholipid antibody syndrome Cerebral infarction, unspecified ([facility]) 05/16/2019 Hypothyroid Migraine without aura and without status migrainosus, not intractable 09/12/2017 Stroke ([facility]) 2016 PSHIST: Past Surgical History: Procedure Laterality [...] (500 mg total)before bedtime., Disp: , Rfl: enoxaparin sodium (LOVENOX [...] contrast; Future - [facility] [place], [place]; Future 2. Antiphospholipid syndrome complicating , antepartum - Echo complete W/O contrast; Future - [facility] [place], [place]; Future 3. History of stroke 4. [...] Adverse outcomes include but not limited to fetalgrowth restriction and stillbirth, placental insufficiency, preeclampsia, increase risk for DVT/VTEevents were reviewed. She understands that she is [...] intermittent symptoms concerning for an autoimmune condition [id number]. I recommended she sees a electric meter tester helper. Referral given. I asked her to hold her Lovenox should she start having signs of labor or bleeding and to seek care. She has a history of a prior loss I suspect it was likely due to bleeding. However she alsotells me that in another she was found [...] but not limited to miscarriage, congenital anomalies, macrosomia,polyhydramnios, hypoglycemia which can cause coma or seizures, shoulder dystocia, deliveryby section, polycythemia, jaundice, respiratory insufficiency, NICU admission, stillbirth.In addition, women with diabetes in are at [...] to maintain TSH values less than 2.5 mU/L.After delivery, the dose of the thyroxine should be reduced to pre- levels and TSH measured 6 to 8 weeks later. Monitoring of thyroid function through primary OB 8. Family history of autism Risk of recurrence discussed. Declines amniocentesis. Her daughter is supposed to undergo genetic testing with her airplane mechanic apprentice. After the patient left I found that [...] asymptomatic I recommend that she sees a reading professor and she desires referral locally. Recommendations: - increase metformin to 1500 mg at night - she is willing to try the NPH 8 units at night - to continue to send blood glucoses to [facility] to review - follow-up survey and [...] vasectomy. Further recommendations to be made by [facility] as the progresses Plan reviewed with patient. She vocalized understanding all questions answered. The patient is to continue with routine care in your office Thank you for allowing me to participate in her care. Please contact me if you have any concerns. Mukul Noyola MD, FACOG (she/hers) Maternal- Medicine [facility] [address] [place] [id number] This document was created with [employer] technology. Though I make every effort to review the dictation as it is transcribed, on occasion the spoken word can be misinterpreted by the technology leading to inappropriate words, phrases, or sentences. This note is addressed to the requesting provider as a consultation for clinical guidance. Specificmedical abbreviations are occasionally used and those are generally approved by the [place]?Board of?Obstetrics and?Gynecology?as well as?Elizabeth guzman abbreviations. The above plan of care was based solely on the diagnoses for which a consultation was requested. ?More frequent testing may be indicated based on her other medical/obstetrical conditions. The management of other or medical conditions is beyond the scope of requested consultation and will c ontinue to be followed by the primary account management assistant or primary care provider. Note to patient: [...] and the clinical opinion of the practitioner. * Iraida Warren RN - 01/01/2025 2:30 PM EDT Headache/epigastric pain/blurry vision/swelling? denies Cramping/contractions? denies Spotting/vaginal bleeding? denies Loss or gush of fluid like your water may have broken? denies Do you have cats at home? denies Do you change the litter box (reason: risk of toxoplasmosis)? Genetic testing done this here or other office? NIPTS > low risk > male Have you been seen here at [facility] in a previous ? yes Recent ER visits or hospitalizations? Seen in L&D for cramping about 2 weeks ago Bring blood sugar log or meter with you today? (Please bring them with you for every visit at [facility]) scanned to media tab Flu vaccine (Feb-June)? no Any concerns that you would like me to mention to the provider today? No concerns documented in this encounterDelaware County HospitalOperax [facility] [id number] Miscellaneous Notes* Telephone Encounter - PRISCILLA Del Cid - 12/26/2024 10:56 AM EDT Called patient regarding blood sugar log from [...] and basics of CGM explained. Will send [employer] message with instructions on how to connect to our [facility] account. Explained how to prudence notes on the Jenifer kennedy for fasting BG and meals. documented in this encounterDelaware County HospitalOperax [facility] Penn[facility] [id number] Telephone encounter Note* Telephone Encounter - PRISCILLA Del Cid - 12/26/2024 10:56 AM EDT Called patient regarding blood sugar log from [...] and basics of CGM explained. Will send [employer] message with instructions on how to connect to our [facility] account. Explained how to prudence notes on the Jenifer kennedy for fasting BG and meals. [facility] HospitalCoolSystems [id number] NoteHNO ID: [id number] Author: KATHERINE NEGRETE APRN.COUNCILOR Service: ? Author Type: Nurse Practitioner Type: Progress Notes Filed: 12/24/2024 21:07 Note Text: NAME: Sanna Rendon CLINIC NO.: [id number] DATE OF SERVICE: December 23, 2024 (Arsh) [...] later in 2018. These were found in [place], [place]. I don't have access to these [...] target-like rash shortly before presenting to [facility] in 2015 with headaches and was [...] g/dL, and platelets a (more content not included)...[facility]08-26-2025 History of Present illness Narrative* Katherine Negrete, VICTOR HUGO.COUNCILOR - 12/23/2024 11:50 AM EDT Images from the original note were not included. NAME: Sanna Rendon CLINIC NO.: [id number] DATE OF SERVICE: December 23, 2024 (Arsh) Some elements in this clinic note that are critical to medical decision making have been carefully reviewed and included from a prior clinic note dated: October 28, 2024 (Arsh) Additional Clinicians involved in Sanna Rendon's care: Drs. Herrmann, Jorge Monge, Humaira Gaviria, CC: Hypercoag state CASE SUMMARY / ASSESSMENT: 39 year old woman presents with a prior history of CVA in 2016 and an antiphospholipid antibody that was identified much later in 2018. These were found in [place], [place]. I don't have access to these [...] target-like rash shortly before presenting to [facility] in 2015 with headaches and was diagnosed with a CVA. - She saw Dr. Baugh but no relevant conclusion was made. She remains on Lovenox - still breast feeding. No clinical need to recheck her APL Ab or Cardiolipin Ab's as results will not change our treatmentplan despite her recent miscarriage. Placental evaluation is [...] 100 mg/dL. She initially experienced cramping for twodays after the dosage increase but denies any diarrhea. She previously had an adverse reaction to Lantus, including tachycardia, dyspnea, diaphoresis, and low-grade fevers, leading to its discontinuation. She has a history of severe electrolyte imbalances after taking baby aspirin, including significanthyponatremia and hypokalemia accompanied by symptoms such as [...] of CVA in 2016 and TIA in 2017, currently managed with [...] had a miscarriage, at 14 weeks, earlier this. She required surgical intervention to remove the [...] see Dr. Monge soon. When she hada stroke in [place], she had symptoms up to a month before: uncontrollable headache, BP was elevated, knee stiffness, and blurry vision. Right facial drooping and difficulty [facility] She continues to take vitamins. Updated Visit, [...] and stayed on Lovenox Hgb 13.1 @ [facility] Recommended ER if persisting bleeding but she [...] and at age 69. Both lived in [facility] but she was adopted. She was not able to see ID in October and will be seeing Dr. Baugh next week. Also will have her see Dr. Hamlin for her clotting disorder and make any other recommendations to optimize her treatment. Updated Visit, October 08, 2020: Telephone only Received call from pt stating she was seen in [facility] ER for numbness in her chest, throat, and extremities, and sob which has been worsening over the last week. We arranged a telephone visit for her franci questions with me. Sanna Rendon is a 34 year old female seen for Hypercoagulable state and recent concerns and symptoms that required her to be seen at [facility] ER. She went to the ER with Gradual worsening of breathing after progressive tingling of fingers and legs. She currently remains very fatigued even though she is sleeping well. Now recalls that before her stroke she remembers having a bull's eye rash and was seen with severe headaches in [facility] was found to have a stroke [...] a root canal and was sent to [facility] for MRI which was negative but non-contrasted. [...] history goes back to January 2016 in [facility] where she had persisting headaches and slurred speech followed by lower extremity weakness. This took a few months to resolve and she is back to her normal state of being but some point in time during her her next she was seen by Dr. Humera Hyde in [place] as well and was found to have [...] Resp 16 Ht 5' 6.024 (1.68m) Wt 208lb 1.8 oz (94.4kg) SpO2 98% LMP 10/28/2024 [...] which included preparing to see the patient, [id number] patient care, completing clinical documentation, obtaining and/or reviewing separately obtained history, performing a medically appropriate examination, counseling and educating the pat ient/family/caregiver, ordering medications, tests, or procedures, independently interpreting results (not separately reported), and communicating results to the patient/family/caregiver. Katherine Negrete APRN.CNP Hematology and Oncology Services Provided at: [place], [place] CC: MD Wilton Day, [address] [place] [address] Humaira Gaviria MD [address] [facility] [id number] MD Cosmo Kingston MD Michael Blank, MD documented in this encounterOhiohealth Riverside [facility] Hospital08-20-2025 History of Present illness Narrative* BRENNEN Guileln - 12/17/2024 3:30 PM EDT REASON FOR OFFICE VISIT: Video Visit via Real-time Synchronous Audiovisual Provider Location: [facility] AT [address] [phone] Patient Location: Patient's home Video [...] that there are some limitations compared to axiu-ez-ezzu evaluations. The patient consented to the presence [...] a reaction that she reported to the [facility] office after her first dose and she is not taking the metformin as indicated on her med rec due to poor supply. She has not been taking 500 mg in am and only 1000 mg at night for 3 consecutive nights Wifi connection is poor for communication and clarity; patient did not start insulin on the as discussed. She talked to her OB and took the insulin for the first time on the . Logs received with 2nd appointment attempt as seen in media She reports that the one day she took the ER Metformin with dinner her PP dinner was higher at 146.She has only been taking 1000 mg ER [...] (3 mL) insulin pen, Prime with 2 unitsthen inject 4 units SQ into abd, Disp: [...] in the morning and 1000 mg at night.,Disp: 90 tablet, Rfl: 4 pen needle, diabetic [...] TSH 1.25 10/28/2024 No results found for: [id number] No results found for: CREATININE , BUN [...] results in hyperglycemia causing adverse growth and development.Macrosomia and excess fat deposits in the fetus lead to excess insulin being released from the pancreas. Relative oxygen deficiency can cause polycythemia leading to slugging in small capillaries which if happens in the brain may cause seizures. Hyperbilirubinemia may also result due torapid destruction of surplus red blood cells after the has been delivered. Achieving a euglycemic state is the best preventative strategy. This can be done through close contact with [facility] diabetic: via weekly glucose review either by [...] values to us weekly by e-mail to: [email or web address] or by fax to: [phone] TIME OF CONSULTATION: 45 minutes with the patient, >50% in discussion and counseling, coordination of care which was [id number], review of records and communication back to referring provider. BRENNEN Guillen 12/17/24 1619 documented in this encounterAdena Pike Medical Center08-15-2025 Miscellaneous Notes* Telephone Encounter - PRISCILLA Sutherland - 12/12/2024 [...] 12/17/2024. Sanna verbalized understanding. documented in this encounterAdena Pike Medical Center08-15-2025 Telephone encounter Note* Telephone Encounter - PRISCILLA Sutherland - 12/12/2024 [...] Alisa Saba APRN 12/17/2024. Sanna verbalized understanding. [employer] Work Phone: 1(902) 749-853108-15-2025 Miscellaneous Notes* Telephone Encounter - PRISCILLA Sutherland - 12/12/2024 [...] tried higher fiber snacks in the evening. Manager Psychiatry told her that I would relay her concerns to [facility] physician and get back to her. Obtained blood sugars for this week and will scan them into her chart. documented in this encounterAdena Pike Medical Center08-15-2025 Telephone encounter Note* Telephone Encounter - PRISCILLA Sutherland - 12/12/2024 [...] tried higher fiber snacks in the evening. Manager Psychiatry told her that I would relay her concerns to [facility] physician and get back to her. Obtained blood sugars for this week and will scan them into her chart. [employer] Work Phone: 1(798) 426-935908-14-2025 History of Present illness Narrative* Rosi Murray LPN - 12/11/2024 9:10 AM EDT Reason for Appointment: Patient ID: Sanna Rendon [...] Diagnosis Date Noted 32 weeks gestation of ([facility]) 11/28/2019 Abdominal pain 06/12/2023 Acute bronchitis due to infection 06/12/2023 Acute on chronic vesicular eczema of hands and feet 11/15/2023 Anemia complicating childbirth ([facility]) 01/16/2020 Anticoagulant long-term use 02/22/2020 Antiphospholipid antibody positive 09/10/2017 Antiphospholipid antibody syndrome ([facility]) 07/07/2019 Anxiety 06/12/2023 Blood pressure elevated without history of HTN 11/15/2023 BMI 37.0-37.9, adult 11/15/2023 Cerebral infarction, unspecified ([facility]) 05/16/2019 Cerebrovascular accident (CVA) due to stenosis of middle cerebral artery ([facility]) 02/22/2020 Cervicalgia 02/05/2019 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 ([facility]) 01/08/2020 Coagulation defect, unspecified ([facility]) 02/05/2019 Cold intolerance 11/15/2023 Deficiency of other specified B group vitamins 05/16/2019 Deviated septum 11/15/2023 Dizziness and giddiness 02/05/2019 Dry mouth 11/15/2023 Dysfunction of eustachian tube 06/12/2023 Dyspnea 06/12/2023 Elevated blood pressure reading 11/15/2023 Encounter for supervision of normal , unspecified, first trimester ([facility]) 05/29/2019 Environmental allergies 11/15/2023 Fatigue 12/29/2016 First degree perineal laceration during delivery ([facility]) 01/16/2020 Frequency of micturition 02/19/2019 Genitourinary symptoms 08/19/2021 Gestational diabetes mellitus (GDM) affecting ([facility]) 01/26/2022 H/O: hypothyroidism 11/15/2023 Hematochezia 06/12/2023 History [...] anemia 01/16/2020 Irregular uterine bleeding 11/15/2023 problem ([facility]) 06/12/2023 Less than 8 weeks gestation of ([facility]) 06/05/2019 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 02/05/2019 Migraine without aura and without status migrainosus, not intractable 09/12/2017 Morbid obesity ([facility]) 11/15/2023 Muscle fasciculation 08/19/2021 Nasal polyps 11/15/2023 Non-smoker 11/15/2023 NEETA (obstructive sleep apnea) 11/15/2023 Other acute postprocedural pain 02/03/2019 Other general symptoms and signs 10/28/2019 Other immediate hemorrhage ([facility]) 01/16/2020 Other specified noninflammatory disorders of vagina 02/21/2019 Pain in joint 12/29/2016 Palpitations 08/26/2019 Paresthesia of bilateral legs 11/15/2023 Pelvic and perineal pain 02/01/2019 Personal history of urinary (tract) infections 01/16/2020 Pre-diabetes 11/15/2023 Primary hypercoagulable state ([facility]) 08/01/2022 Pruritus, unspecified 01/02/2020 Psychogenic hyperventilation 06/12/2023 Raised antibody titer 09/25/2017 Right lower quadrant pain 11/15/2023 Right otitis externa 11/15/2023 Salivary gland swelling 11/15/2023 Single live ([facility]) 01/15/2020 Snoring 11/15/2023 Speech and language deficit [...] drainage of cyst WISDOM TOOTH EXTRACTION 2007 [place] teeth REVIEW OF SYSTEMS Review of Systems: [...] nursing note reviewed. Exam conducted with a computer installer present. Vitals: Estimated body mass index is 33.41 kg/m as calculated from the following: Height as of 11/19/23: 5' 6 . Weight as of this encounter: 207 lb. BP: 120/70 Patient's last menstrual period was 07/28/2024. ASSESSMENT & PLAN ICD-10-CM 1. 19 weeks gestation of ([facility]) Z3A.19 POCT urinalysis dipstick manually resulted 2. Second trimester ([facility]) Z34.92 POCT urinalysis dipstick manually resulted 3. Thyroid disease E07.9 4. Multigravida of advanced maternal age in second trimester ([facility]) O09.522 5. Gestational diabetes mellitus (GDM), antepartum, gestational diabetes method of control unspecified ([facility]) O24.419 Patient presents today for a routine [...] scan and Telemedicine with MFM provider in [place]. Documented by Rosi Murray LPN on behalf of: Wilton Herrmann DO documented in this encounterNicole Ville [id number] Miscellaneous Notes* Telephone Encounter - Anni Abreu CMA - 12/03/2024 3:01 PM EDT Left message with patient to call our office to schedule her next appt in 2 week with an SAWMILL SUPERVISOR/PA. Left call back number and to press option 3 for scheduling. documented in this encounterAdena [facility] Telephone encounter Note* Telephone Encounter - Anni Abreu CMA - 12/03/2024 3:01 PM EDT Left message with patient to call our office to schedule her next appt in 2 week with an SAWMILL SUPERVISOR/PA. Left call back number and to press option 3 for scheduling. [facility]08-[facility] History of Present illness Narrative* Alisa Saba, VICTOR HUGO-TOR - 12/03/2024 2:00 PM EDT REASON FOR [...] starting insulin. She is being [facility] due to GDMA2. States [...] 2014 PELVIC LAPAROSCOPY WISDOM TOOTH EXTRACTION 2006 ALLERGIES: [...] TSH 1.25 10/28/2024 No results found for: [id number] No results found for: CREATININE , BUN [...] baby. Little research has been done on fdc effects of Metformin exposure to the fetus. [...] values to us weekly by e-mail to: or by fax to: [phone] TIME OF CONSULTATION: 60 minutes with the patient, >50% in discussion and counseling, coordination of care which was [id number], review of records and communication back to referring provider. BRENNEN Guillen 12/03/24 1500 documented in this encounterAdena Pike [facility] Center07-24-2025 History of Present illness Narrative* Rosi Murray LPN - 11/20/2024 10:10 AM EDT Reason for Appointment: Patient ID: Sanna Rendon is a 39 y.o. female who presents for Routine Visit Patient presents today for Return OB appointment. MEDICATIONS Current Outpatient Medications Medication Instructions Alcohol Swabs (Alcohol Prep Pad) 70 % pads 1 Pad, Topical, Daily, Use four times daily to check FSBS. Blood Glucose Monitoring Suppl ([employer]-SportID Glucometer) w/Device kit 1 kit, Does not [...] Diagnosis Date Noted 32 weeks gestation of ([facility]) 11/28/2019 Abdominal pain 06/12/2023 Acute bronchitis due to infection 06/12/2023 Acute on chronic vesicular eczema of hands and feet 11/15/2023 Anemia complicating childbirth ([facility]) 01/16/2020 Anticoagulant long-term use 02/22/2020 Antiphospholipid antibody positive 09/10/2017 Antiphospholipid antibody syndrome ([facility]) 07/07/2019 Anxiety 06/12/2023 Blood pressure elevated without history of HTN 11/15/2023 BMI 37.0-37.9, adult 11/15/2023 Cerebral infarction, unspecified ([facility]) 05/16/2019 Cerebrovascular accident (CVA) due to stenosis of middle cerebral artery ([facility]) 02/22/2020 Cervicalgia 02/05/2019 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 ([facility]) 01/08/2020 Coagulation defect, unspecified ([facility]) 02/05/2019 Cold intolerance 11/15/2023 Deficiency of other specified B group vitamins 05/16/2019 Deviated septum 11/15/2023 Dizziness and giddiness 02/05/2019 Dry mouth 11/15/2023 Dysfunction of eustachian tube 06/12/2023 Dyspnea 06/12/2023 Elevated blood pressure reading 11/15/2023 Encounter for supervision of normal , unspecified, first trimester ([facility]) 05/29/2019 Environmental allergies 11/15/2023 Fatigue 12/29/2016 First degree perineal laceration during delivery ([facility]) 01/16/2020 Frequency of micturition 02/19/2019 Genitourinary symptoms 08/19/2021 Gestational diabetes mellitus (GDM) affecting ([facility]) 01/26/2022 H/O: hypothyroidism 11/15/2023 Hematochezia 06/12/2023 History [...] anemia 01/16/2020 Irregular uterine bleeding 11/15/2023 problem ([facility]) 06/12/2023 Less than 8 weeks gestation of ([facility]) 06/05/2019 residential (current) use of 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/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 02/05/2019 Migraine without aura and without status migrainosus, not intractable 09/12/2017 Morbid obesity ([facility]) 11/15/2023 Muscle fasciculation 08/19/2021 Nasal polyps 11/15/2023 Non-smoker 11/15/2023 NEETA (obstructive sleep apnea) 11/15/2023 Other acute postprocedural pain 02/03/2019 Other general symptoms and signs 10/28/2019 Other immediate hemorrhage ([facility] 01/16/2020 Other specified noninflammatory disorders of vagina 02/21/2019 Pain in joint 12/29/2016 Palpitations 08/26/2019 Paresthesia of bilateral legs 11/15/2023 Pelvic and perineal pain 02/01/2019 Personal history of urinary (tract) infections 01/16/2020 Pre-diabetes 11/15/2023 Primary hypercoagulable state ([facility]) 08/01/2022 Pruritus, unspecified 01/02/2020 Psychogenic hyperventilation 06/12/2023 Raised antibody titer 09/25/2017 Right lower quadrant pain 11/15/2023 Right otitis externa 11/15/2023 Salivary gland swelling 11/15/2023 Single live ([facility]) 01/15/2020 Snoring 11/15/2023 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) 12/30/2019 Suspected severe acute respiratory syndrome coronavirus 2 (SARS-CoV-2) infection 06/12/2023 SVT (supraventricular tachycardia) ([facility]) 08/26/2019 Syncope and collapse 06/03/2018 Other bacterial [...] ([facility]) Anemia Antiphospholipid syndrome ([facility]) Gestational diabetes ([facility]) Heartburn Hypothyroid Stroke ([facility]) HISTORY PAST MEDICAL [...] drainage of cyst WISDOM TOOTH EXTRACTION 2007 [place] teeth REVIEW OF SYSTEMS Review of Systems: [...] nursing note reviewed. Exam conducted with a computer installer present. Vitals: Estimated body mass index is 33.57 kg/m as calculated from the following: Height as of 11/19/23: 5' 6 . Weight as of this encounter: 208 lb. BP: 108/76 Patient's last menstrual period was 07/28/2024. ASSESSMENT & PLAN ICD-10-CM 1. Second trimester ([facility]) Z34.92 Alpha fetoprotein, maternal Alpha fetoprotein, maternal 2. 16 weeks gestation of ([facility]) Z3A.16 POCT urinalysis dipstick manually resulted 3. Screening, , for anatomic survey ([facility]) Z36.89 CANCELED: US OB 14+ weeks anatomy [...] past and desires to have prescription sent topharmacy. Patient is able to call office if Claritin or Zyrtec need sent to pharmacy. Flonase sent to pharmacy to help with sinus issues. RTC in 3 for routine OB appointment as patient will be seeingMFM in between today's appointment and next appointment. Documented by Rosi Murray LPN on behalf of: Wilton Herrmann DO documented in this encounterEllis Fischel Cancer [id number] Group counseling note* Group Note - Cindy Miller RD - 11/19/2024 9:30 AM EDT Patient: Sanna Rendon Date: 11/19/2024 Vitals: 11/19/24 [...] Face to face time was 100 minutes. [employer] Work Phone: [phone] Miscellaneous Notes* Group Note - Cindy Miller RD - 11/19/2024 9:30 AM EDT Patient: Sanna Rendon Date: 11/19/2024 Vitals: 11/19/24 [...] time was 100 minutes. documented in this encounterDelaware County HospitalOperax [facility] Medical Center [id number] Telephone encounter Note* Telephone Encounter - Rachael Johnson RN - 11/05/2024 12:48 PM EDT Pt updated. She reports she is unable to take aspirin. It makes my electrolytes go out of whack. Ididn't take with my previous pregnancies and I am not comfortable taking this time either. She will continue with Lovenox, as recommended. 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 She denies further questions, needs or concerns for our care team at this time. Appt verified for RTC Rachael Johnson RN [facility]07-09-2025 Miscellaneous Notes* Telephone Encounter - Rachael Johnson RN - 11/05/2024 12:48 PM EDT Pt updated. She reports she is unable to take aspirin. It makes my electrolytes go out of whack. Ididn't take with my previous pregnancies and I am not comfortable taking this time either. She will continue with Lovenox, as recommended. Pt is scheduled for appt with high school sports coach, 11/19/24, Leyla Promnuzhat. She denies further questions, needs or concerns for our care team at this time. Appt verified for RTC Rachael Johnson RN * Telephone Encounter - Katherine Negrete APRN.TOR - 11/05/2024 12:29 PM EDT Spoke with Dr. Moscoso and she is to continue Lovenox 40 daily and add baby asa (81 mg) daily. Please also make sure she is following OB High risk. Labs acceptable at this time. Will monitor. Thanks, Katherine Negrete APRN.COUNCILOR * Telephone Encounter - Abbie Jimenez PA-C - 11/04/2024 8:13 AM EDT Katherine saw this patient last and will be able to advise better of the plan of care. Abbie Jimenez PA-C * Telephone Encounter - Valeri Yeung RN - 10/30/2024 8:30 AM EDT Labs resulted. Please advise. Valeri Yeung RN * Telephone Encounter - Roberta Haskins - 10/28/2024 2:52 PM EDT Images from the original note were not included. documented in this encounterOhiohealth [facility]ide [facility]07-09-2025 Telephone encounter Note * Telephone Encounter - Katherine Negrete APRN.CNP - 11/05/2024 12:29 PM EDT Spoke with Dr. Moscoso and she is to continue Lovenox 40 daily and add baby asa (81 mg) daily. Please also make sure she is following OB High risk. Labs acceptable at this time. Will monitor. ThanksKatherine APRN.TOR [facility] Work Phone: [phone] Telephone encounter Note* Telephone Encounter - Abbie Jimenez PA-C - 11/04/2024 8:13 AM EDT Katherine saw this patient last and will be able to advise better of the plan of care. Abbie Jimenez PA-C [facility] Work Phone: [phone] 706-186507-03-2025 History of Present illness Narrative* Rosi Murray LPN - 10/30/2024 9:30 AM EDT Reason for Appointment: Patient ID: Sanna Rendon [...] Diagnosis Date Noted 32 weeks gestation of ([facility]) 11/28/2019 Abdominal pain 06/12/2023 Acute bronchitis due to infection 06/12/2023 Acute on chronic vesicular eczema of hands and feet 11/15/2023 Anemia complicating childbirth ([facility]) 01/16/2020 Anticoagulant long-term use 02/22/2020 Antiphospholipid antibody positive 09/10/2017 Antiphospholipid antibody syndrome ([facility]) 07/07/2019 Anxiety 06/12/2023 Blood pressure elevated without history of HTN 11/15/2023 BMI 37.0-37.9, adult 11/15/2023 Cerebral infarction, unspecified ([facility]) 05/16/2019 Cerebrovascular accident (CVA) due to stenosis of middle cerebral artery ([facility]) 02/22/2020 Cervicalgia 02/05/2019 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 ([facility]) 01/08/2020 Coagulation defect, unspecified ([facility]) 02/05/2019 Cold intolerance 11/15/2023 Deficiency of other specified B group vitamins 05/16/2019 Deviated septum 11/15/2023 Dizziness and giddiness 02/05/2019 Dry mouth 11/15/2023 Dysfunction of eustachian tube 06/12/2023 Dyspnea 06/12/2023 Elevated blood pressure reading 11/15/2023 Encounter for supervision of normal , unspecified, first trimester ([facility]) 05/29/2019 Environmental allergies 11/15/2023 Fatigue 12/29/2016 First degree perineal laceration during delivery ([facility]) 01/16/2020 Frequency of micturition 02/19/2019 Genitourinary symptoms 08/19/2021 Gestational diabetes mellitus (GDM) affecting ([facility]) 01/26/2022 H/O: hypothyroidism 11/15/2023 Hematochezia 06/12/2023 History [...] anemia 01/16/2020 Irregular uterine bleeding 11/15/2023 problem ([facility]) 06/12/2023 Less than 8 weeks gestation of ([facility]) 06/05/2019 residential (current) use of 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/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 02/05/2019 Migraine without aura and without status migrainosus, not intractable 09/12/2017 Morbid obesity ([facility]) 11/15/2023 Muscle fasciculation 08/19/2021 Nasal polyps 11/15/2023 Non-smoker 11/15/2023 NEETA (obstructive sleep apnea) 11/15/2023 Other acute postprocedural pain 02/03/2019 Other general symptoms and signs 10/28/2019 Other immediate hemorrhage ([facility]) 01/16/2020 Other specified noninflammatory disorders of vagina 02/21/2019 Pain in joint 12/29/2016 Palpitations 08/26/2019 Paresthesia of bilateral legs 11/15/2023 Pelvic and perineal pain 02/01/2019 Personal history of urinary (tract) infections 01/16/2020 Pre-diabetes 11/15/2023 Primary hypercoagulable state ([facility]) 08/01/2022 Pruritus, unspecified 01/02/2020 Psychogenic hyperventilation 06/12/2023 Raised antibody titer 09/25/2017 Right lower quadrant pain 11/15/2023 Right otitis externa 11/15/2023 Salivary gland swelling 11/15/2023 Single live ([facility]) 01/15/2020 Snoring 11/15/2023 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) 12/30/2019 Suspected severe acute respiratory syndrome coronavirus 2 (SARS-CoV-2) infection 06/12/2023 SVT (supraventricular tachycardia) ([facility]) 08/26/2019 Syncope and collapse 06/03/2018 Other bacterial [...] drainage of cyst WISDOM TOOTH EXTRACTION 2007 [place] teeth REVIEW OF SYSTEMS Review of Systems: [...] nursing note reviewed. Exam conducted with a computer installer present. Vitals: Estimated body mass index is 33.81 kg/m as calculated from the following: Height as of 11/19/23: 5' 6 . Weight as of this encounter: 209 lb 8 oz. BP: 110/76 Patient's last menstrual period was 07/28/2024. ASSESSMENT & PLAN ICD-10-CM 1. Second trimester ([facility]) Z34.92 POCT urinalysis dipstick manually resulted 2. 13 weeks gestation of ([facility]) Z3A.13 3. Thyroid disease E07.9 4. Multigravida of advanced maternal age in second trimester ([facility]) O09.522 New OB: Patient presents today for [...] undercooked meat, and stay away from [facility]. Patient has been consulted regarding any further do's and don'tsof . Patient voiced understanding and all questions and concerns were answered. Patient is currently on 40 Lovenox and will be referred to [facility] for recommendations/co-management throughout . Discussed concerns [...] of: Wilton Herrmann DO documented in this encounterEllis Fischel Cancer [id number] Telephone encounter Note* Telephone Encounter - Valeri Yeung RN - 10/30/2024 8:30 AM EDT Labs resulted. Please advise. Valeri Yeung RN [facility]07-01-2025 Telephone encounter Note* Telephone Encounter - Roberta Haskins - 10/28/2024 2:52 PM EDT Images from the original note were not included. [facility]07-01-2025 NoteHNO ID: [id number] Author: KATHERINE NEGRETE APRN.COUNCILOR Service: ? Author Type: Nurse Practitioner Type: Progress Notes Filed: 10/29/2024 21:44 Note Text: NAME: Sanna Rendon CLINIC NO.: [id number] DATE OF SERVICE: October 28, 2024 (Arsh) [...] later in 2018. These were found in [place], [place]. I don't have access to these [...] target-like rash shortly before presenting to [facility] in 2016 with headaches and was [...] vision changes both have (more content not included)...[facility]07-01-2025 History of Present illness Narrative* Katherine Negrete APRN.COUNCILOR - 10/28/2024 2:33 PM EDT Images from the original note were not included. NAME: Sanna Rendon CLINIC NO.: [id number] DATE OF SERVICE: October 28, 2024 (Arsh) Some elements in this clinic note that are critical to medical decision making have been carefully reviewed and included from a prior clinic note dated: October 10, 2024 (Levon) Additional Clinicians involved in Sanna Rendon's care: Drs. Herrmann, Jorge Monge, Humaira Gaviria, CC: Hypercoag [facility] CASE SUMMARY / ASSESSMENT: 39 year old woman presents with a prior history of CVA in 2016 and an antiphospholipid antibody that was identified much later in 2018. These were found in [place], [place]. I don't have access to these [...] target-like rash shortly before presenting to [facility] in 2015 with headaches and was diagnosed with a CVA. - She saw Dr. Baugh but no relevant conclusion was made. She remains on Lovenox - still breast feeding. No clinical need to recheck her APL Ab or Cardiolipin Ab's as results will not change our treatmentplan despite her recent miscarriage. Placental evaluation is [...] had a miscarriage, at 14 weeks, earlier thismon. She required surgical intervention to remove the [...] see Dr. Monge soon. When she hada stroke in [place], she had symptoms up to a month before: uncontrollable headache, BP was elevated, knee stiffness, and blurry vision. Right facial drooping and difficulty [facility] She continues to take vitamins. Updated Visit, [...] and stayed on Lovenox Hgb 13.1 @ [facility] Recommended ER if persisting bleeding but she [...] and at age 69. Both lived in [place], [place] - but she was adopted. She was not able to see ID in October and will be seeing Dr. Baugh next week. Also will have her see Dr. Hamlin for her clotting disorder and make any other recommendations to optimize her treatment. Updated Visit, October 08, 2020: Telephone only Received call from pt stating she was seen in [facility] ER for numbness in her chest, throat, and extremities, and sob which has been worsening over the last week. We arranged a telephone visit for her torcelestineiew questions with me. Sanna Rendon is a 34 year old female seen for Hypercoagulable state and recent concerns and symptoms that required her to be seen at [facility] ER. She went to the ER with Gradual worsening of breathing after progressive tingling of fingers and legs. She currently remains very fatigued even though she is sleeping well. Now recalls that before her stroke she remembers having a bull's eye rash and was seen with severe headaches in [place], [place] - was found to have a [...] a root canal and was sent to [facility] for MRI which was negative but non-contrasted. [...] history goes back to January 2016 in [facility] where she had persisting headaches and slurred speech followed by lower extremity weakness. This took a few months to resolve and she is back to her normal state of being but some point in time during her her next she was seen by Dr. Humera Hyde in [place] as well and was found to have [...] which included preparing to see the patient, [id number] patient care, completing clinical documentation, obtaining and/or reviewing separately obtained history, performing a medically appropriate examination, counseling and educating the pat ient/family/caregiver, ordering medications, tests, or procedures, independently interpreting results (not separately reported), and communicating results to the patient/family/caregiver. Katherine Negrete APRN.[facility] Hematology and Oncology Services Provided at: [place], [place] CC: MD Wilton Day, [address] [place] [address] Humaira Gaviria MD [address] [place] [address] [place] [address] MD Cosmo Kingston MD Michael Blank, MD documented in this encounterOhiohealth Riverside [facility]06-27-2025 Telephone encounter Note * Telephone Encounter - Kaur Dunham MA - 10/24/2024 2:14 PM EDT New orders may need placed for appt on 10/28. Kaur Dunham MA [facility]06-27-2025 Miscellaneous Notes* Telephone Encounter - Kaur Dunham MA - 10/24/2024 2:14 PM EDT New orders may need placed for appt on 10/28. Kaur Dunham MA documented in this encounterOhiohealth Riverside Methodist Hospital06-16-2025 Miscellaneous Notes* Telephone Encounter - Margo Khan RN - 10/13/2024 12:14 PM EDT Attempted to contact patient x3, call cannot be completed, cannot receive calls at this time. Unable to leave a voicemail. documented in this encounterAdena Pike Medical Center06-16-2025 Telephone encounter Note* Telephone Encounter - Margo Khan RN - 10/13/2024 12:14 PM EDT Attempted to contact patient x3, call cannot be completed, cannot receive calls at this time. Unable to leave a voicemail. [facility]06-05-[facility] History of Present illness Narrative* Lala Hess MA - 10/02/2024 1:00 PM EDT Reason for Appointment: Patient ID: Sanna Rendon [...] Antiphospholipid antibody positive 09/10/2017 Antiphospholipid antibody syndrome ([facility]) 07/07/2019 Anxiety 06/12/2023 Blood pressure elevated without history of HTN 11/15/2023 BMI 37.0-37.9, adult 11/15/2023 Cerebral infarction, unspecified 05/16/2019 Cerebrovascular accident (CVA) due to stenosis of middle cerebral artery ([facility] 02/22/2020 Cervicalgia 02/05/2019 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 [...] Less than 8 weeks gestation of 06/05/2019 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 02/05/2019 Migraine without aura and without status migrainosus, not intractable ([facility]) 09/12/2017 Morbid obesity ([facility]) 11/15/2023 Muscle fasciculation 08/19/2021 Nasal polyps 11/15/2023 [...] Pre-diabetes 11/15/2023 Primary hypercoagulable state ([facility]) 08/01/2022 Pruritus, unspecified 01/02/2020 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[facility]) 06/12/2023 Raised antibody titer 09/25/2017 Right lower quadrant pain 11/15/2023 Right otitis externa 11/15/2023 Salivary gland swelling 11/15/2023 Single live 01/15/2020 Snoring 11/15/2023 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) 12/30/2019 Suspected severe acute respiratory syndrome coronavirus 2 (SARS-CoV-2) infection 06/12/2023 SVT (supraventricular tachycardia) ([facility]) 08/26/2019 Syncope and collapse 06/03/2018 Other bacterial infections of unspecified site 06/27/2019 Thrombocytopenia, unspecified ([facility]) 11/20/2019 Hypoglycemia 06/12/2023 Unspecified condition associated with female genital organs and menstrual cycle 05/09/2019 Unspecified ovarian cyst, right side 02/06/2019 Urinary tract infection 10/16/2019 Referred otalgia of right ear 11/19/2023 LPRD (laryngopharyngeal reflux disease) 11/19/2023 Resolved Ambulatory Problems Diagnosis Date Noted No Resolved Ambulatory Problems Past Medical History: Diagnosis Date AMA (advanced maternal age) multigravida 35+ Anemia Antiphospholipid syndrome ([facility]) Gestational diabetes Heartburn Hypothyroid ([facility] Stroke ([facility]) Family History Problem Relation Name Age of [...] drainage of cyst WISDOM TOOTH EXTRACTION 2007 [place] teeth Allergies Allergen Reactions Ciprofloxacin GI intolerance [...] TSH Nurse Note: Patient desires to have [place] billion to one. Pt was advised to [...] undercooked meat, and stay away from [facility]. Patient has also been advised to not [...] by: Lala Hess MA documented in this encounterEllis Fischel Cancer [id number] NotePatient Education Infectious Disease Upper Respiratory Infection, Adult An upper respiratory infection (URI) is a common viral infection of the nose, throat, and upper airpassages that lead to the lungs. The most [...] to help relieve symptoms, such as: ??? Hwhy-fxp-izwlfdh cold medicines. ??? Cough suppressants. Coughing is [...] other clear broths. General instructions ??? Take yebd-dmh-ccpashb and prescription medicines only as told by [...] and water are not available, use hand can conveyor feeder. ??? Avoid touching your mouth, face, eyes, [...] a stiff neck. ? (more content not included)...[facility]05-07-2025 Miscellaneous Notes* Telephone Encounter - Rachael Johnson RN - 09/03/2024 1:25 PM EDT Pt notified and appt for September. She denies any further questions, needs or concerns at thistime. Rachael Johnson RN * Telephone Encounter - Kristofer Calix MD - 09/03/2024 12:51 PM EDT No change in meds. * Telephone Encounter - Rachael Johnson RN - 09/02/2024 9:37 AM EDT Pt left a voicemail to inform she is approximately 5 weeks . She is asking any recommendations on med changes. Pt missed today's appt. Called and left VM to please call and schedule missed follow up MUNIRA. Fely: Please advise Rachael Johnson RN documented in this encounterOhio[facility] Telephone encounter Note * Telephone Encounter - Rachael Johnson RN - 09/03/2024 1:25 PM EDT Pt notified and appt for September. She denies any further questions, needs or concerns at thistime. Rachael Johnson RN [facility]05-07-2025 Telephone encounter Note* Telephone Encounter - Kristofer Calix MD - 09/03/2024 12:51 PM EDT No change in meds. [facility]05-06-2025 Telephone encounter Note* Telephone Encounter - Rachael Johnson RN - 09/02/2024 9:37 AM EDT Pt left a voicemail to inform she is approximately 5 weeks . She is asking any recommendations on med changes. Pt missed today's appt. Called and left VM to please call and schedule missed follow up MUNIRA. Fely: Please advise Rachael Johnson RN [facility]04-29-2025 Telephone encounter Note* Telephone Encounter - Serina Dawson MA - 08/26/2024 3:41 PM EDT Patient has an appt on 08/27/24. Would you like labs, if so place orders. Serina Dawson MA [facility]04-29-2025 Miscellaneous Notes* Telephone Encounter - Serina Horton MA - 08/26/2024 3:41 PM EDT Patient has an appt on 08/27/24. Would you like labs, if so place orders. Serina Dawson MA documented in this encounterOhiohealth [facility]04-08-2025 Evaluation + Plan note Future Scheduled Tests Laboratory* HgbA1c 08/05/24 * HgbA1c 11/04/24 Radiology* CT Soft Tissue Neck w/ Contrast 11/12/23 [facility] 03-27-2025 History of Present illness Narrative* Rosi Murray, DEB - 07/24/2024 11:50 AM EDT Reason for Appointment: Patient ID: Sanna Rendon [...] care 01/08/2020 Coagulation defect, unspecified ([facility]) 02/05/2019 Cold intolerance 11/15/2023 Deficiency of other [...] Less than 8 weeks gestation of 06/05/2019 residential (current) use of 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/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 02/05/2019 Migraine without aura and without status migrainosus, not intractable ([facility]) 09/12/2017 Morbid obesity ([facility]) 11/15/2023 Muscle fasciculation 08/19/2021 Nasal polyps 11/15/2023 [...] Pre-diabetes 11/15/2023 Primary hypercoagulable state ([facility]) 08/01/2022 Pruritus, unspecified 01/02/2020 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[facility]) 06/12/2023 Raised antibody titer 09/25/2017 Right lower quadrant pain 11/15/2023 Right otitis externa 11/15/2023 Salivary gland swelling 11/15/2023 Single live 01/15/2020 Snoring 11/15/2023 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) 12/30/2019 Suspected severe acute respiratory syndrome coronavirus 2 (SARS-CoV-2) infection 06/12/2023 SVT (supraventricular tachycardia) ([facility]) 08/26/2019 Syncope and collapse 06/03/2018 Other bacterial infections of unspecified site 06/27/2019 Thrombocytopenia, unspecified ([facility]) 11/20/2019 Hypoglycemia 06/12/2023 Unspecified condition associated with female genital organs and menstrual cycle 05/09/2019 Unspecified ovarian cyst, right side 02/06/2019 Urinary tract infection 10/16/2019 Referred otalgia of right ear 11/19/2023 LPRD (laryngopharyngeal reflux disease) 11/19/2023 Resolved Ambulatory Problems Diagnosis Date Noted No Resolved Ambulatory Problems Past Medical History: Diagnosis Date AMA (advanced maternal age) multigravida 35+ Anemia Antiphospholipid syndrome ([facility]) Gestational diabetes Heartburn Hypothyroid ([facility]) Stroke ([facility]) HISTORY PAST MEDICAL HISTORY SOCIAL HISTORY Past Medical History: Diagnosis Date AMA (advanced maternal age) multigravida 35+ Anemia Antiphospholipid syndrome (CMS/HCC) Gestational diabetes Heartburn Hypothyroid ([facility]) Stroke ([facility]) Social History Tobacco Use Smoking status: Never [...] drainage of cyst WISDOM TOOTH EXTRACTION 2007 [place] teeth REVIEW OF SYSTEMS Review of Systems: [...] nursing note reviewed. Exam conducted with a computer installer present. Vitals: Estimated body mass index is [...] 48 hours. Patient is not currently on hercycle and advised to discuss with PCP to [...] cycle to ensure ovulation. Patient voiced that shehas been taking ovulation kits at home. Discussed timing of ovulation and that patient could ovulate earlier or later than normal . Patient able to call office if she desires to have provera sent topharmacy to initiate cycle. Patient is able to call office if she desires to have ultrasound ordered as well. Patient to schedule annual appointment for in 3 months. Patients questions have already been answered in regards to blood thinners and . Documented by Rosi Murray LPN on behalf of: Wilton Herrmann DO documented in this encounterEllis Fischel Cancer [id number] NotePatient Education Emergency Medicine Bradycardia, Adult Bradycardia is a rjlwja-xpjp-wnoeao heartbeat. A normal resting heart rate for an adult ranges from60 to 100 beats per minute. With bradycardia, the resting heart rate is less than 60 beats per minute. Bradycardia can prevent enough oxygen from reaching certain areas of your body when you are active.It can be serious if it keeps enough [...] provider. ??? Follow a heart-healthy diet. A sustainable agriculture specialist (dietitian) can help educate you about healthy food options and changes. ??? Follow an exercise program that is approved by your health care provider. ??? Maintain a healthy weight. ??? Try to reduce or manage your stress, such as with yoga or meditation. If you need help reducingstress, ask your health care provider. ??? Do [...] liquor (44 mL). General instructions ??? Take qcpr-mbo-dwqxohf and prescription medicines only as told by [...] irregular heartbeat (palpitations). ??? (more content not included)...[facility]03-03-2025 Hospital Discharge instructions Patient Education 06/30/2024 09:20:56 PANDAS PANDAS Pediatric autoimmune neuropsychiatric disorders associated with streptococcal infection (PANDAS) porfirio diagnosis that is considered when a child [...] proteins called antibodies in response to strep bacteria.In children with PANDAS, these antibodies attack brain [...] association between a strep infection and OCD ortics that has occurred suddenly. Your child's health [...] Follow these instructions at home: Medicines Give ocqh-hai-jznduib and prescription medicines only as told by [...] find more information PANDAS Network: pandasnetwork.org National [place] of Mental Health: [facility].nih.gov Contact a health care provider if: Your [...] the National Suicide Prevention Lifeline at or 939. This is open 24 hours a day. Text the Crisis Text Line at 925579. Summary Pediatric autoimmune neuropsychiatric disorders associated with [...] provider. Document Revised: 01/09/2022 Document Reviewed: 01/09/2022 [employer] Patient Education 2023 [employer] 06/30/2024 09:20:50 Common Variable Immunodeficiency Common [...] and long-term (chronic) infections of the upper respiratorysystem, lungs, and digestive system. These infections may [...] autoimmune disease, arthritis, skin diseases, or cancer, youmay need more treatment. Follow these instructions at home: Medicines Take suti-oxm-eoniemc and prescription medicines only as told by [...] help quitting, ask your health careprovider. Keep all follow-up visits. This is important. You may need to have your blood tested often to monitor your disease. Where to find more information National [place] of Allergy and Infectious Disease: www.niaid.nih.gov Contact [...] risk for frequent or unusual infections. Take keek-qxs-nhybwon and prescription medicines only as told by [...] provider. Document Revised: 11/18/2021 Document Reviewed: 11/18/2021 [employer] Patient Education 2023 [employer]. 06/30/2024 09:18:06 DASH Eating Plan DASH Eating [...] that are raw, steamed, roasted, or grilled. Low- sodium or reduced-sodiumtomato and vegetable juice. Low-sodium or reduced-sodium tomato sauce and tomato paste. Low-sodium or reduced-sodium canned vegetables. Grains Whole-grain or whole-wheat bread. Whole-grain or whole-wheat pasta. Brown rice. Oatmeal. Quinoa. Bulgur. Whole-grain and low-sodium cereals. Michelle bread. Low- fat, low-sodium crackers. Whole-wheat flour tortillas. Meats and [...] milk. Reduced-fat, low-fat, or fat-free cheeses. Nonfat, low-sodiumricotta or cottage cheese. Low-fat or nonfat yogurt. [...] Dairy Whole or 2% milk, cream, and gjyq-dve-mxmo. Whole or full-fat cream cheese. Whole-fat or [...] sauce. Oyster sauce. Cocktail sauce. Store-bought horseradish. Ketchup.Mustard. Meat flavorings and tenderizers. Bouillon cubes. Hot sauces. Pre-made or packaged marinades. Pre-made or packaged taco seasonings. Relishes. Regular salad dressings. Other foods Salted popcorn and pretzels. The items listed above may not be all the foods and drinks you should avoid. Talk to a dietitian alida noble. Where to find more information National Heart, Lung, and Blood [place] (NHLBI): nhlbi.nih.gov [place] Heart Association (AHA): heart.org Academy of Nutrition and Dietetics: eatright.org National Kidney Foundation (NKF): kidney.org This information is not intended to replace advice given to you by your health care provider. Make sure you discuss any questions you have with your health care provider. Document Revised: 05/03/2023 Document Reviewed: 05/03/2023 [employer] Patient Education 2023 [employer]. Follow Up Care 06/25/2024 13:53:59 With:PRAVEEN RESENDEZ FAAFP, CHRIS Perez, PED Address: [facility] [place] [address] [place] [address]- When:Within 2 Month(s) [facility] 03-03-2025 NotePatient Education Immunology Common Variable Immunodeficiency Common variable immunodeficiency (CVID) is a rare disorder in which the body does not have enough infection-fighting proteins called antibodies and immunoglobulins. This condition may increase your risk for: ??? Frequent and unusual infections. ??? Serious complications, including some types of cancer. ??? Certain diseases in which the body's defense system (immune system) attacks normal body tissues(autoimmune disease). What are the causes? The cause [...] and long-term (chronic) infections of the upper respiratorysystem, lungs, and digestive system. These infections may [...] autoimmune disease, arthritis, skin diseases, or cancer, youmay need more treatment. Follow these instructions at home: Medicines ??? Take pwee-knd-athamlo and prescription medicines only as told by your health care provider. ??? If you were prescribed an antibiotic, take it as told by your health care provider. Do not stopusing the antibiotic even if your condition improves. General instructions ??? Learn as much as you can about CVID, and work closely with your health care providers to manageyour condition. ??? If you have digestive symptoms, [...] Where to find more information ??? National [place] of Allergy and Infectious Disease: www.niaid.nih.gov Contact a health care provider if: ??? You have a fever. ??? You have any symptoms of infection such as chills, worsening cough, or severe earache. ??? You make high-pitched whistling sounds when you breathe, most often when you breathe out (wheeze). (more content not included)...[facility]02-24-2025 History of Present illness Narrative* Rosi Murray, DEB - 06/23/2024 3:00 PM EST Reason for Appointment: Patient ID: Sanna Rendon [...] Antiphospholipid antibody positive 09/10/2017 Antiphospholipid antibody syndrome ([facility]) 07/07/2019 Anxiety 06/12/2023 Blood pressure elevated without history of HTN 11/15/2023 BMI 37.0-37.9, adult 11/15/2023 Cerebral infarction, unspecified ([facility]) 05/16/2019 Cerebrovascular accident (CVA) due to stenosis of middle cerebral artery ([facility]) 02/22/2020 Cervicalgia 02/05/2019 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 Coagulation defect, unspecified ([facility]) 02/05/2019 Cold intolerance 11/15/2023 Deficiency of other [...] Less than 8 weeks gestation of 06/05/2019 residential (current) use of 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/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 02/05/2019 Migraine without aura and without status migrainosus, not intractable ([facility]) 09/12/2017 Morbid obesity ([facility]) 11/15/2023 Muscle fasciculation 08/19/2021 Nasal polyps 11/15/2023 [...] Pre-diabetes 11/15/2023 Primary hypercoagulable state ([facility]) 08/01/2022 Pruritus, unspecified 01/02/2020 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[facility]) 06/12/2023 Raised antibody titer 09/25/2017 Right lower quadrant pain 11/15/2023 Right otitis externa 11/15/2023 Salivary gland swelling 11/15/2023 Single live 01/15/2020 Snoring 11/15/2023 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) 12/30/2019 Suspected severe acute respiratory syndrome coronavirus 2 (SARS-CoV-2) infection 06/12/2023 SVT (supraventricular tachycardia) ([facility]) 08/26/2019 Syncope and collapse 06/03/2018 Other bacterial infections of unspecified site 06/27/2019 Thrombocytopenia, unspecified ([facility]) 11/20/2019 Hypoglycemia 06/12/2023 Unspecified condition associated with [...] Hypothyroid ([facility]) Stroke ([facility]) HISTORY PAST MEDICAL HISTORY SOCIAL HISTORY Past [...] drainage of cyst WISDOM TOOTH EXTRACTION 2007 [place] teeth REVIEW OF SYSTEMS Review of Systems: [...] nursing note reviewed. Exam conducted with a computer installer present. Vitals: Estimated body mass index is [...] and vaginally. Discussed with patient healing process andhormones and that this maybe tender due to healing process. Patient and spouse did have intercourseyesterday. Patients LMP 06/10/24 that lasted 3 days and a week later she started spotting again. Reassurance given that this is still healing from recent loss. Discussed Terconazole & for vaginal symptoms as patient is trying to conceive as well. Medication sent to patients pharmacy and vaginalcultures obtained without difficulty to confirm what is causing vaginal discharge. Documented by Rosi Murray LPN on behalf of: Wilton Herrmann DO documented in this encounterEllis Fischel Cancer [id number] Hospital Discharge instructions Patient Education 06/09/2024 14:23:47 [...] of the head in the area of theTMJ. Other symptoms may include: Pain when moving [...] Do not chew gum. General instructions Take cjxv-ftj-ifxysit and prescription medicines only as told by [...] important. Where to find more information National [place] of Dental and Craniofacial Research: www.nidcr.nih.gov Contact [...] may also make a clicking sound when youopen your mouth. TMJ syndrome often goes away [...] provider. Document Revised: 11/27/2021 Document Reviewed: 11/27/2021 [employer] Patient Education 2023 [employer]. Follow Up Care 06/06/2024 11:26:13 With:PRAVEEN RESENDEZ FAAFP, CHRIS Perez, PED Address: [address] [place] [address] [place] [phone] When:Within 6 Month(s) [facility] 02-10-2025 NotePatient Education Orthopedics Temporomandibular Joint Syndrome Temporomandibular joint [...] of the head in the area of theTMJ. Other symptoms may include: ??? Pain when [...] not chew gum. General instructions ??? Take cevw-him-tqkrrpo and prescription medicines only as told by [...] Where to find more information ??? National [place] of Dental and Craniofacial Research: www.nidcr.nih.gov Contact [...] You may also make a clicking sound whenyou open your mouth. ??? TMJ syndrome often [...] provider. Document Revised: 11/27/2021 Document Reviewed: 11/27/2021 [employer] Patient Education ? 2023 [employer] 06-02-2024 History of Present illness Narrative* Renate Vegas LPN - 06/02/2024 11:20 AM EST Reason for Appointment: Patient ID: Sanna Rendon [...] Antiphospholipid antibody positive 09/10/2017 Antiphospholipid antibody syndrome ([facility]) 07/07/2019 Anxiety 06/12/2023 Blood pressure elevated without history of HTN 11/15/2023 BMI 37.0-37.9, adult 11/15/2023 Cerebral infarction, unspecified ([facility]) 05/16/2019 Cerebrovascular accident (CVA) due to stenosis of middle cerebral artery ([facility]) 02/22/2020 Cervicalgia 02/05/2019 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 Coagulation defect, unspecified ([facility]) 02/05/2019 Cold intolerance 11/15/2023 Deficiency of other [...] Less than 8 weeks gestation of 06/05/2019 residential (current) use of 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/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 02/05/2019 Migraine without aura and without status migrainosus, not intractable ([facility]) 09/12/2017 Morbid obesity ([facility]) 11/15/2023 Muscle fasciculation 08/19/2021 Nasal polyps 11/15/2023 [...] Pre-diabetes 11/15/2023 Primary hypercoagulable state ([facility]) 08/01/2022 Pruritus, unspecified 01/02/2020 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[facility]) 06/12/2023 Raised antibody titer 09/25/2017 Right lower quadrant pain 11/15/2023 Right otitis externa 11/15/2023 Salivary gland swelling 11/15/2023 Single live 01/15/2020 Snoring 11/15/2023 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) 12/30/2019 Suspected severe acute respiratory syndrome coronavirus 2 (SARS-CoV-2) infection 06/12/2023 SVT (supraventricular tachycardia) ([facility]) 08/26/2019 Syncope and collapse 06/03/2018 Other bacterial [...] drainage of cyst WISDOM TOOTH EXTRACTION 2007 [place] teeth REVIEW OF SYSTEMS Review of Systems: [...] nursing note reviewed. Exam conducted with a computer installer present. Vitals: Estimated body mass index is [...] Patient had recent HCG level drawn at [facility] 05/31/2024 lab value was 6. Documented by Renate Vegas LPN on behalf of: Wilton Herrmann DO documented in this encounterEllis Fischel Cancer [id number] Telephone encounter Note* Telephone Encounter - Taylor Escudero - 05/28/2024 1:45 PM EST Triage to call with iron results [facility]01-29-2025 Miscellaneous Notes* Telephone Encounter - Taylor Escudero - 05/28/2024 1:45 PM EST Triage to call with iron results documented in this encounterOhiohealth [facility]ide [facility] Hospital01-29-2025 Instructions* Patient Instructions* Nathaly Florence - 05/28/2024 1:44 PM EST Triage to call iron results Continue Lovenox - patient prefers 40 mg (rather than rec 80mg) Encouraged her to reconsider Take B12 supplement in the form of a sublingual tablet RTC in 3 months Labs same day or 2-7 days prior documented in this encounterOhiohealth Riverside [facility]01-29-2025 History of Present illness Narrative* Kristofer Calix MD - 05/28/2024 1:00 PM EST Images from the original note were not included. NAME: Sanna Rendon CLINIC NO.: [id number] DATE OF SERVICE: May 28, 2024 ([place]) Some elements in this clinic note that are critical to medical decision making have been carefully reviewed and included from a prior clinic note dated: January 02, 2024 ([place]) Additional Clinicians involved in Sanna Rendon's care: Drs. Herrmann, Jorge Monge, uHmaira Gaviria, CC: hypercoag state. ASSESSMENT: 38 year old woman presents with a prior history of CVA in 2016 and an antiphospholipid antibody that was identified much later in 2018. These were found in [place], [place]. I don't have access to these [...] target-like rash shortly before presenting to [facility] in 2016 with headaches and was diagnosed with a CVA. - She saw Dr. Baugh but no relevant conclusion was made. She remains on Lovenox - still breast feeding. No clinical need to recheck her APL Ab or Cardiolipin Ab's as results will not change our treatmentplan despite her recent miscarriage. Placental evaluation is [...] had a miscarriage, at 14 weeks, earlier thismon. She required surgical intervention to remove the [...] see Dr. Monge soon. When she hada stroke in [place], she had symptoms up to a month before: uncontrollable headache, BP was elevated, knee stiffness, and blurry vision. Right facial dro[facility] She continues to take [facility]. Updated Visit, [...] and stayed on Lovenox Hgb 13.1 @ [facility] Recommended ER if persisting bleeding but she [...] and at age 69. Both lived in [place], [place] - but she was adopted. She was not able to see ID in October and will be seeing Dr. Baugh next week. Also will have her see Dr. Hamlin for her clotting disorder and make any other recommendations to optimize her treatment. Updated Visit, October 08, 2020: Telephone only Received call from pt stating she was seen in [facility] ER for numbness in her chest, throat, and extremities, and sob which has been worsening over the last week. We arranged a telephone visit for her franci questions with me. Sanna Rendon is a 34 year old female seen for Hypercoagulable state and recent concerns and symptoms that required her to be seen at [facility]. She went to the ER with Gradual worsening of breathing after progressive tingling of fingers and legs. She currently remains very fatigued even though she is sleeping well. Now recalls that before her stroke she remembers having a bull's eye rash and was seen with severe headaches in [place], [place] - was found to have a [...] a root canal and was sent to [facility] for MRI which was negative but non-contrasted. [...] history goes back to January 2016 in [facility] where she had persisting headaches and slurred speech followed by lower extremity weakness. This took a few months to resolve and she is back to her normal state of being but some point in time during her her next she was seen by Dr. Humera Hyde in [place] as well and was found to have [...] Resp 16 Ht 5' 6.024 (1.68m) Wt 217lb 2.5 oz (98.5kg) SpO2 99% LMP 12/22/2023 [...] which included preparing to see the patient, yxux-cl-ejvm patient care, completing clinical documentation, performing a medically appropriate examination, counseling and educating the patient/family/caregiver, ordering medications, tests, or p rocedures, independently interpreting results (not separately reported), communicating results to the patient/family/caregiver, and care coordination (not separately reported). Kristofer Calix MD, CPE Hematology and Oncology Services Provided at: [place], [place] Scribe Attestation: This note was scribed by Nathaly Florence on May 28, 2024 under the direction and supervision of Dr. Kristofer Calix. I attest that all of the information documented is correct to the best of myknowledge. Provider Attestation: I, Kristofer Calix MD, attest that all information documented by the above scribe is correct, and was supervised by me and under my direction. CC: MD Wilton Day, DO [address] [facility] [place] [address] Humaira Gaviria MD [address] [facility] [id number] MD Cosmo Kingston MD Michael Blank, MD documented in this encounterOhiohealth Riverside [facility] Hospital01-29-2025 NoteHNO ID: [id number] Author: KRISTOFER CALIX MD Service: ? Author Type: Physician Type: Progress Notes Filed: 05/29/2024 09:13 Note Text: NAME: Sanna Rendon CLINIC NO.: [id number] DATE OF SERVICE: May 28, 2024 (Levon) [...] later in 2018. These were found in [place], [place]. I don't have access to these [...] target-like rash shortly before presenting to [facility] in 2016 with headaches and was [...] soon. When she had a stroke in [place], she had symptoms up to a month [...] breast feeding. Updated Visit, (more content not included)...[facility] 05-14-2024 Telephone encounter Note* Telephone Encounter - Rachael Johnson RN - 05/14/2024 10:15 AM EST Pt called to inform she had a miscarriage, Sunday (05/10/24) Asking if any additional blood work was needed from out standpoint. Pt aware we will be checking her CBC for any signs of anemia and her iron studies for deficiency. 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 request any additional testing, we can certainly draw with her appt 05/21 (will just need to fax orders). She denies any further questions needs or concerns at this time. Rachael Johnson RN Fely: DAVIONI [facility]01-15-2025 Miscellaneous Notes* Telephone Encounter - Rachael Johnson RN - 05/14/2024 10:15 AM EST Pt called to inform she had a miscarriage, Sunday (05/10/24) Asking if any additional blood work was needed from out standpoint. Pt aware we will be checking her CBC for any signs of anemia and her iron studies for deficiency. 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 request any additional testing, we can certainly draw with her appt 05/21 (will just need to fax orders). She denies any further questions needs or concerns at this time. Rachael Johnson RN Fely: FYI documented in this encounterOhiohealth Riverside Methodist Hospital01-15-2025 Telephone encounter Note * Telephone Encounter - Rosi Murray LPN - 05/14/2024 9:19 AM EST 0908 Patient called to inquire if when [...] to have answer in regards to blood thinnersat follow up appointment. PVU--Rosi Presley LPN [facility] [id number] Miscellaneous Notes* Telephone Encounter - Rosi Murray LPN - 05/14/2024 9:19 AM EST 0908 Patient called to inquire if when [...] to have answer in regards to blood thinnersat follow up appointment. 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 Coagulation defect, unspecified ([facility]) 02/05/2019 Cold intolerance 11/15/2023 Deficiency of other [...] Less than 8 weeks gestation of 06/05/2019 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 02/05/2019 Migraine without aura and without status migrainosus, not intractable ([facility]) 09/12/2017 Morbid obesity ([facility]) 11/15/2023 Muscle fasciculation 08/19/2021 Nasal polyps 11/15/2023 [...] Pre-diabetes 11/15/2023 Primary hypercoagulable state ([facility]) 08/01/2022 Pruritus, unspecified 01/02/2020 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[facility]) 06/12/2023 Raised antibody titer 09/25/2017 Right lower quadrant pain 11/15/2023 Right otitis externa 11/15/2023 Salivary gland swelling 11/15/2023 Single live 01/15/2020 Snoring 11/15/2023 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) 12/30/2019 Suspected severe acute respiratory syndrome coronavirus 2 (SARS-CoV-2) infection 06/12/2023 SVT (supraventricular tachycardia) ([facility]) 08/26/2019 Syncope and collapse 06/03/2018 Other bacterial infections of unspecified site 06/27/2019 Thrombocytopenia, unspecified ([facility]) 11/20/2019 Hypoglycemia 06/12/2023 Unspecified condition associated with [...] HOSPITAL/HCC) Gestational diabetes Heartburn Hypothyroid ([facility]) Stroke ([facility]) HISTORY PAST MEDICAL HISTORY SOCIAL HISTORY Past Medical History: Diagnosis Date AMA (advanced maternal age) multigravida 35+ Anemia Antiphospholipid syndrome (CMS/HCC) Gestational diabetes Heartburn Hypothyroid ([facility]) Stroke ([facility]) Social History Tobacco Use Smoking status: Never [...] drainage of cyst WISDOM TOOTH EXTRACTION 2007 [place] teeth REVIEW OF SYSTEMS Review of Systems: [...] nursing note reviewed. Exam conducted with a computer installer present. Vitals: Estimated body mass index is [...] urinalysis dipstick manually resulted documented in this encounterEllis Fischel Cancer [id number] History of Present illness Narrative* Ariane Joseph, HEAD SHIPPER - 04/04/2024 10:00 AM EST Reason for Appointment: Patient ID: Sanna Rendon [...] list which includes the following prescription(s): aspirin, levothyroxine,levothyroxine, metformin xr, multi-vitamin, and ondansetron odt. 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 Coagulation defect, unspecified ([facility]) 02/05/2019 Cold intolerance 11/15/2023 Deficiency of other [...] Less than 8 weeks gestation of 06/05/2019 residential (current) use of 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/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 02/05/2019 Migraine without aura and without status migrainosus, not intractable ([facility]) 09/12/2017 Morbid obesity ([facility]) 11/15/2023 Muscle fasciculation 08/19/2021 Nasal polyps 11/15/2023 [...] Pre-diabetes 11/15/2023 Primary hypercoagulable state ([facility]) 08/01/2022 Pruritus, unspecified 01/02/2020 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[facility]) 06/12/2023 Raised antibody titer 09/25/2017 Right lower quadrant pain 11/15/2023 Right otitis externa 11/15/2023 Salivary gland swelling 11/15/2023 Single live 01/15/2020 Snoring 11/15/2023 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) 12/30/2019 Suspected severe acute respiratory syndrome coronavirus 2 (SARS-CoV-2) infection 06/12/2023 SVT (supraventricular tachycardia) ([facility]) 08/26/2019 Syncope and collapse 06/03/2018 Other bacterial infections of unspecified site 06/27/2019 Thrombocytopenia, unspecified ([facility]) 11/20/2019 Hypoglycemia 06/12/2023 Unspecified condition associated with female genital organs and menstrual cycle 05/09/2019 Unspecified ovarian cyst, right side 02/06/2019 Urinary tract infection 10/16/2019 Referred otalgia of right ear 11/19/2023 LPRD (laryngopharyngeal reflux disease) 11/19/2023 Resolved Ambulatory Problems Diagnosis Date Noted No Resolved Ambulatory Problems Past Medical History: Diagnosis Date AMA (advanced maternal age) multigravida 35+ Anemia Antiphospholipid syndrome ([facility]) Gestational diabetes Heartburn Hypothyroid ([facility]) Stroke ([facility]) Family History Problem Relation Name Age of [...] drainage of cyst WISDOM TOOTH EXTRACTION 2007 [place] teeth Allergies Allergen Reactions Ciprofloxacin GI intolerance [...] Rapid drug screen, urine; Future Hypothyroidism (acquired) ([facility]) - TSH Low vitamin D level - [...] undercooked meat, and stay away from [facility]. Patient has also been advised to not [...] by: Ariane Joseph LPN documented in this encounterEllis Fischel Cancer [id number] Telephone encounter Note* Telephone Encounter - Rachael Johnson RN - 02/28/2024 8:21 AM EDT Pt aware and agreeable to plan of care. Pt denies any further questions, needs or concerns at this time. Appt verified for lab/follow up Rachael Johnson RN [facility]10-31-2024 Miscellaneous Notes* Telephone Encounter - Rachael Johnson RN - 02/28/2024 8:21 AM EDT Pt aware and agreeable to plan of care. Pt denies any further questions, needs or concerns at this time. Appt verified for lab/follow up Rachael Johnson RN * Telephone Encounter - Kristofer Calix MD - 02/27/2024 4:36 PM EDT She can take the iron with prenatals. We should Johnathon labs as scheduled. * Telephone Encounter - Rachael Johnson RN - 02/27/2024 9:41 AM EDT Pt 4 weeks and inquiring if she should have March's lab work completed now or wait until scheduled appt. Pt last labs completed 01/02/24. Pt also would like to know if it is okay to take with iron? Fely: Please advise Rachael Johnson RN documented in this encounterOhiohealth Riverside [facility] Hospital10-30-2024 Telephone encounter Note * Telephone Encounter - Kristofer Calix MD - 02/27/2024 4:36 PM EDT She can take the iron with prenatals. We should Johnathon labs as scheduled. [facility]10-30-2024 Telephone encounter Note* Telephone Encounter - Rachael Johnson RN - 02/27/2024 9:41 AM EDT Pt 4 weeks and inquiring if she should have March's lab work completed now or wait until scheduled appt. Pt last labs completed 01/02/24. Pt also would like to know if it is okay to take with iron? Fely: Please advise Rachael Johnson RN [facility]10-08-2024 Hospital Discharge instructions Patient Education 02/05/2024 14:07:02 [...] cough may last longer. Allergies, asthma, and exposureto smoke may make the condition worse. What [...] water to the air to help you breathebetter. Taking a medicine that thins mucus and clears congestion (expectorant). Taking a medicine that prevents or stops coughing (cough suppressant). It is not common to take an antibiotic medicine for this condition. Follow these instructions at home: Take lxhb-vic-ydclyek and prescription medicines only as told by [...] need help quitting, ask your health careprovider. Get plenty of rest. Return to your [...] and water are not available, use hand can conveyor feeder. Avoid contact with people who have cold [...] airways (bronchi) that come off the windpipe (trachea)in the lungs. The swelling causes the airways to get smaller and make more mucus than normal. Drinking more fluids can help thin your mucus so it is easier to cough up. Take adeb-sqv-jrkyanl and prescription medicines only as told by your health care provider. Do not use any products that contain nicotine or tobacco. These products include cigarettes, chewing tobacco, and vaping devices, such as e-cigarettes. If you need help quitting, ask your health careprovider. Contact a health care provider if your symptoms do not improve after 2 weeks. This information is not intended to replace advice given to you by your health care provider. Make sure you discuss any questions you have with your health care provider. Document Revised: 07/27/2022 Document Reviewed: 08/17/2021 [employer] Patient Education 2023 [employer]. Follow Up Care 02/04/2024 08:47:42 With:PRAVEEN RESENDEZ FAAFP, Penelope Tony, CHRIS, PED Address: [address], [place] [address]- When:Within 3 Month(s) [facility] 10-08-2024 NotePatient Education Pulmonary Medicine Acute Bronchitis, Adult Acute [...] cough may last longer. Allergies, asthma, and exposureto smoke may make the condition worse. What are the causes? This condition can be caused by germs and by substances that irritate the lungs, including: ? Cold and flu viruses. The most common cause of this condition is the virus that causes the commoncold. ? Bacteria. This is less common. ? [...] Follow these instructions at home: ? Take aamg-net-bjbeafw and prescription medicines only as told by [...] and water are not available, use hand can conveyor feeder. ? Avoid contact with people who have [...] is easier to cough up. ? Take pdxo-sbn-vgemzbn and (more content not included)...[facility]10-05-2024 Hospital Discharge instructions Follow Up Care 02/02/2024 11:19:56 With:Anni Bernstein MD, [facility], MED Address: [address] [place] [phone] When: only if needed [facility] [phone] Miscellaneous Notes* Telephone Encounter - Valeri Yeung RN - 01/07/2024 8:29 AM EDT No need for IV iron per CC'd chart from Dr. Calix. Attempt to call pt to notify. Left detailed message on, along with call back number on voicemail. Valeri Yeung RN * Telephone Encounter - Marleen Mcdonald - 01/02/2024 2:[address] Luna is requesting Triage to call Sanna with her FE results. Thank you documented in this encounterOhiohealth Riverside [facility] Hospital09-09-2024 Telephone encounter Note * Telephone Encounter - Valeri Yeung RN - 01/07/2024 8:29 AM EDT No need for IV iron per CC'd chart from Dr. Calix. Attempt to call pt to notify. Left detailed message on, along with call back number on voicemail. Valeri Yeung RN [facility]09-04-2024 Telephone encounter Note* Telephone Encounter - Marleen Mcdonald - 01/02/2024 2:[address] Luna is requesting Triage to call Sanna with her FE results. Thank you [facility]09-04-2024 Instructions* Patient Instructions* Nathaly Florence - 01/02/2024 2:08 PM EDT Triage to call iron results Continue Lovenox - patient prefers 40 mg (rather than rec 80mg) Encouraged her to reconsider Take B12 supplement in the form of a sublingual tablet RTC in 3 months Labs same day Vitamin D, TSH, Calcium with CMP documented in this encounterOhiohealth Riverside Methodist Hospital09-04-2024 Nurse Note* Serina Horton MA - 01/02/2024 1:48 PM EDT Patient states that at least once a [...] but was negative. Serina Dawson MA [facility]09-04-2024 Nurse Note* Serina Dawson MA - 01/02/2024 1:48 PM EDT Patient states that at least once a [...] negative. Serina Dawson MA documented in this encounterOhiohealth Riverside Methodist Hospital09-04-2024 History of Present illness Narrative* Kristofer Calix MD - 01/02/2024 1:45 PM EDT Images from the original note were not included. NAME: Sanna Rendon CLINIC NO.: [id number] DATE OF SERVICE: January 02, 2024 (Levon) Some elements in this clinic note that are critical to medical decision making have been carefully reviewed and included from a prior clinic note dated: June 15, 2023 (Levon) Additional Clinicians involved in Sanna Rendon's care: Drs. Herrmann, Jorge Monge, Humaira Gaviria, CC: hypercoag state. ASSESSMENT: 38 year old woman presents with a prior history of CVA in 2016 and an antiphospholipid antibody that was identified much later in 2018. These were found in [place], [place]. I don't have access to these [...] target-like rash shortly before presenting to [facility] in 2016 with headaches and was diagnosed with a CVA. - She saw Dr. Baugh but no relevant conclusion was made. She remains on Lovenox - still breast feeding. No clinical need to recheck her APL Ab or Cardiolipin Ab's as results will not change our treatmentplan. PLAN: Triage to call iron results Continue [...] see Dr. Monge soon. When she hada stroke in [place], she had symptoms up to a month before: uncontrollable headache, BP was elevated, knee stiffness, and blurry vision. Right facial drooping [facility] She continues to take vitamins. Updated Visit, [...] and stayed on Lovenox Hgb 13.1 @ [facility] Recommended ER if persisting bleeding but she [...] and at age 69. Both lived in [place], [place] - but she was adopted. She was not able to see ID in October and will be seeing Dr. Baugh next week. Also will have her see Dr. Hamlin for her clotting disorder and make any other recommendations to optimize her treatment. Updated Visit, October 08, 2020: Telephone only Received call from pt stating she was seen in [facility] ER for numbness in her chest, throat, and extremities, and sob which has been worsening over the last week. We arranged a telephone visit for her toreview questions with me. Sanna Rendon is a 34 year old female seen for Hypercoagulable state and recent concerns and symptoms that required her to be seen at [facility]. She went to the ER with Gradual worsening of breathing after progressive tingling of fingers and legs. She currently remains very fatigued even though she is sleeping well. Now recalls that before her stroke she remembers having a bull's eye rash and was seen with severe headaches in [place], [place] - was found to have a [...] a root canal and was sent to [facility] for MRI which was negative but non-contrasted. [...] history goes back to January 2016 in [facility] where she had persisting headaches and slurred speech followed by lower extremity weakness. This took a few months to resolve and she is back to her normal state of being but some point in time during her her next she was seen by Dr. Humera Hyde in [place] as well and was found to have [...] Resp 16 Ht 5' 6.024 (1.68m) Wt 226lb 6.6 oz (102.7kg) SpO2 100% LMP 12/22/2023 [...] which included preparing to see the patient, tapj-dc-iwkm patient care, completing clinical documentation, performing a medically appropriate examination, counseling and educating the patient/family/caregiver, ordering medications, tests, or p rocedures, independently interpreting results (not separately reported), communicating results to the patient/family/caregiver, and care coordination (not separately reported). Kristofer Calix MD, CPE Hematology and Oncology Services Provided at: [place], [place] Scribe Attestation: This note was scribed by Nathaly Florence on January 02, 2024 under the direction and supervisionof Dr. Kristofer Calix. I attest that all of the information documented is correct to the best of my knowledge. Provider Attestation: I, Kristofer Calix MD, attest that all information documented by the above scribe is correct, and was supervised by me and under my direction. CC: MD Wilton Day, [address] [place] [address] Humaira Gaviria MD [address] [facility] [id number] MD Cosmo Kingston MD Michael Blank, MD documented in this encounterOhiohealth Riverside Methodist Hospital08-19-2024 Telephone encounter Note * Telephone Encounter - Rachael Johnson RN - 12/17/2023 12:57 PM EDT Pt updated and will follow up with PCP. Denies further questions, needs or concerns at this time for our provider. Rachael Johnson RN [facility]08-19-2024 Miscellaneous Notes* Telephone Encounter - Rachael Johnson RN - 12/17/2023 12:57 PM EDT Pt updated and will follow up with PCP. Denies further questions, needs or concerns at this time for our provider. Rachael Johnson RN * Telephone Encounter - Kristofer Calix MD - 12/17/2023 12:52 PM EDT No - sounds like she has some infectious process going on - would rec PCP. * Telephone Encounter - Rachael Johnson RN - 12/17/2023 11:30 AM EDT Pt reports onset of low grade fever [...] . She also states there is a goodchance I may be again, I just haven't taken a test. Pt encouraged to test for verification. Pharm/Fely: possible delayed reaction to IV Iron 11/29/23? documented in this encounterOhiohealth Riverside [facility] Hospital08-19-2024 Telephone encounter Note * Telephone Encounter - Kristofer Calix MD - 12/17/2023 12:52 PM EDT No - sounds like she has some infectious process going on - would rec PCP. [facility]08-19-2024 Telephone encounter Note* Telephone Encounter - Rachael Johnson RN - 12/17/2023 11:30 AM EDT Pt reports onset of low grade fever [...] . She also states there is a goodchance I may be again, I just haven't taken a test. Pt encouraged to test for verification. Pharm/Fely: possible delayed reaction to IV Iron 11/29/23? [facility]08-01-2024 History of Present illness Narrative* Becki Gutierrez RN - 11/29/2023 2:01 PM EDT Y Y documented in this encounterOhiohealth Riverside [facility] Hospital08-01-2024 Telephone encounter Note * Telephone Encounter - Rachael Johnson RN - 11/29/2023 12:45 PM EDT MARSHA Connell, treatment aware of changes. [facility]08-01-2024 Miscellaneous Notes* Telephone Encounter - Rachael Johnson RN - 11/29/2023 12:45 PM EDT MARSHA Connell, treatment aware of changes. * Telephone Encounter - Rachael Johnson RN - 11/29/2023 12:41 PM EDT Spoke with pt. She will obtain Pepcid OTC from our retail pharmacy on arrival to take (1) 20 mg tablet. She is aware and agreeable to IV steroid for infusion as well. Rachael Johnson RN * Telephone Encounter - Raissa Aly RPh - 11/29/2023 12:40 PM EDT A one time dose of dexamethasone is safe when . I added 8mg to the plan for your review. Please adjust dose if necessary. Thanks, Raissa Aly RPh * Telephone Encounter - Raissa Aly RPh - 11/29/2023 12:34 PM EDT Famotidine is safe when . Do we want to administer the venofer slower? What rate? Thanks, Raissa Aly RPh * Telephone Encounter - Rachael Johnson RN - 11/29/2023 11:56 AM EDT Called and discussed with pt. She is and cannot take Benadryl. She is reluctant to take Pepcid. Attempted to call retail, infusion pharmacy and [facility], no answer, to ask safety of pepcid in . Pharm/Fely: please advise Rachael Johnson RN * Telephone Encounter - Kristofer Calix MD - 11/29/2023 10:02 AM EDT Hi Sanna - sometimes it depends on [...] a different iron formulation. [facility] Tele[facility] encounter Note * Telephone Encounter - Rachael Johnson RN - 11/29/2023 12:41 PM EDT Spoke with pt. She will obtain Pepcid OTC from our retail pharmacy on arrival to take (1) 20 mg tablet. She is aware and agreeable to IV steroid for infusion as well. Rachael Johnson RN [facility]08-[facility] Telephone encounter Note* Telephone Encounter - Raissa Aly RPh - 11/29/2023 12:40 PM EDT A one time dose of dexamethasone is safe when . I added 8mg to the plan for your review. Please adjust dose if necessary. Thanks, Raissa Aly RPh [facility] Work Phone: [phone] Telephone encounter Note* Telephone Encounter - Raissa Aly RPh - 11/29/2023 12:34 PM EDT Famotidine is safe when . Do we want to administer the venofer slower? What rate? Thanks, Raissa Aly RPh [facility] Telephone encounter Note* Telephone Encounter - Rachael Johnson RN - 11/29/2023 11:56 AM EDT Called and discussed with pt. She is and cannot take Benadryl. She is reluctant to take Pepcid. Attempted to call retail, infusion pharmacy and [facility], no answer, to ask safety of pepcid in . Pharm/Fely: please advise Rachael Johnson RN [facility] Telephone encounter Note* Telephone Encounter - Kristofer Calix MD - 11/29/2023 10:02 AM EDT Hi Sanna - sometimes it depends on [...] have to choose a different iron formulation. [facility] History of Present illness Narrative* Alison Linares RN - 11/15/2023 1:42 PM EDT Pt reports having nausea and lightheadedness this morning. She has seen her pcp regarding these symptoms and is being worked up to figure out the cause. documented in this encounter[facility] Telephone encounter Note * Telephone Encounter - Evelyn Sanabria - 11/15/2023 9:19 AM EDT 1st report of treatment-Non oncology regimen (Venofer) Patient holds Medicaid coverage and there isno available FA at this time. [facility] Miscellaneous Notes* Telephone Encounter - Evelyn Sanabria - 11/15/2023 9:19 AM EDT 1st report of treatment-Non oncology regimen (Venofer) Patient holds Medicaid coverage and there isno available FA at this time. documented in this encounterOhio[facility] Hospital Discharge instructions Patient Education 11/09/2023 15:56:11 [...] your hypoglycemia. Where to find more information [place] Diabetes Association: www.diabetes.org National [place] of Diabetes and Digestive and Kidney Diseases: [...] provider. Document Revised: 03/17/2021 Document Reviewed: 03/17/2021 [employer] Patient Education 2022 [employer]. 11/09/2023 15:56:06 Prediabetes Prediabetes Prediabetes is when [...] to insulin that the body makes. This cancause excess glucose to build up in the [...] eating lean proteins, whole grains, legumes, fresh fruitsand vegetables, low-fat dairy products, and healthy fats. [...] hard liquor (44 mL). General instructions Take bexw-juf-qchpjzk and prescription medicines only as told by your health care provider. You maybe prescribed medicines that help lower the risk of type 2 diabetes. Do not use any products that contain nicotine or tobacco, such as cigarettes, e- cigarettes, and chewing tobacco. If you need help quitting, ask your health care provider. Keep all follow-up visits. This is important. Where to find more information [place] Diabetes Association: www.diabetes.org Academy of Nutrition and Dietetics: www.eatright.org [place] Heart Association: www.heart.org Contact a health care provider if: You have any of these symptoms: ?Increased hunger. ?Increased urination. ?Increased thirst. ?Fatigue. ?Vision changes, such as blurry vision. Get help right away if you: Have shortness of breath. Feel confused. Vomit or feel like you may vomit. Summary Prediabetes is when your blood sugar (blood glucose)level is higher than normal but not high enoughfor you to be diagnosed with type 2 [...] provider. Document Revised: 07/15/2020 Document Reviewed: 07/15/2020 [employer] Patient Education 2022 [employer]. 11/09/2023 15:56:02 Palpitations Palpitations Palpitations are feelings that your heartbeat is irregular or is faster than normal. It may feel like your heart is fluttering or skipping a beat. Palpitations may be caused by many things, includingsmoking, caffeine, alcohol, stress, and certain medicines or drugs. Most causes of palpitations arenot serious. However, some palpitations can be a sign of a serious problem. Further tests and a thorough medicalhistory will be done to find the cause [...] need help quitting, ask your health careprovider. General instructions Take bwak-lgn-dnzeckj and prescription medicines only as told by [...] provider. Document Revised: 09/07/2021 Document Reviewed: 09/07/2021 [employer] Patient Education 2022 [employer]. 11/09/2023 15:55:58 Fatigue Fatigue If you have [...] Follow these instructions at home: Medicines Take jsra-byv-zhyxmig and prescription medicines only as told by [...] the National Suicide Prevention Lifeline at or 535. This is open 24 hours a day. Text the Crisis Text Line at 500619. Summary If you have fatigue, you feel [...] provider. Document Revised: 02/06/2022 Document Reviewed: 02/06/2022 [employer] Patient Education 2022 [employer]. Follow Up Care 11/08/2023 11:31:43 With:PRAVEEN RESENDEZ FAAFP, CHRIS Perez, CECIL Address: [place] [address]- When: Unknown [facility] 07-12-2024 NotePatient Education Emergency Medicine Palpitations Palpitations are feelings that your heartbeat is irregular or is faster than normal. It may feel like your heart is fluttering or skipping a beat. Palpitations may be caused by many things, includingsmoking, caffeine, alcohol, stress, and certain medicines or drugs. Most causes of palpitations arenot serious. However, some palpitations can be a sign of a serious problem. Further tests and a thorough medicalhistory will be done to find the cause [...] pain or shortness of breath with activity, donot continue the activity until you are seen [...] health care provider. General instructions ? Take htff-ywh-ntbkhwc and prescription medicines only as told by [...] provider. Document Revised: 09/07/2021 Document Reviewed: 09/07/2021 [employer] Patient Education ? 2022 [employer] Endocrinology Preventing Hypoglycemia Hypoglycemia occurs when [...] Mild hypoglycemia may not (more content not included)...[facility]07-12-[facility]24 History of Present illness Narrative* Tamiko Krueger LSW - 11/09/2023 9:27 AM EDT Patient appears on the [facility] First Time Treatment List for a non-oncology treatment. No psychosocial assessment is indicated. KRISTOPHER Huerta documented in this encounterOhio[facility] Telephone encounter Note * Telephone Encounter - Rachael Johnson RN - 11/06/2023 8:24 AM EDT Pt informed of Fely's message and denies any questions, needs or concerns at this time. She will call PCP for additional workup of palpitations, should the IV iron not help, or they worsen. Discussed reasons for immediate evaluation; chest pain, shortness of breath, lightheadedness, dizziness, etc. Appointments verified. Rachael Johnson RN [facility] Miscellaneous Notes* Telephone Encounter - Rachael Johnson RN - 11/06/2023 8:24 AM EDT Pt informed of Fely's message and denies any questions, needs or concerns at this time. She will call PCP for additional workup of palpitations, should the IV iron not help, or they worsen. Discussed reasons for immediate evaluation; chest pain, shortness of breath, lightheadedness, dizziness, etc. Appointments verified. Rachael Johnson, RN * Telephone Encounter - Kristofer Calix MD - 11/05/2023 5:39 PM EDT Thanks Brit - will forward to Rachael. [...] get you feeling better. Dr. Kane Arana * Telephone Encounter - Roberta Haskins - 11/05/2023 4:23 PM EDT Patient has been scheduled for Venofer on 11/14, 11/21 and 11/28. Follow in in 8 weeks scheduled for 01/01. FELY: Patient has a couple questions. 1) Should she stop her oral iron that she takes once a day? 2) Since August, patient has had heart palpitations that she wanted to address with you. She states itstarted when she had per period. Her current symptoms include being ice cold, racing heart beat, sweaty and she's tired all day. Currently also stating she is on a blood thinner. Roberta Haskins * Telephone Encounter - Roberta Haskins - 11/05/2023 12:47 PM EDT Appointment tomorrow cancelled. Andres tried calling her this morning and was unable to get a hold ofher. Will keep trying patient to schedule for Iron. Roberta Haskins * Telephone Encounter - Roberta Haskins - 11/05/2023 12:47 PM EDT ----- Message from Rachael Johnson RN sent at 11/05/2023 11:53 AM EDT ----- ----- Message ----- From: Kristofer Calix MD Sent: 11/05/2023 11:33 AM EDT To: [facility] Triage Pool; [facility] Clerical Pool Perry Isidro - looks like you need Iron again. Dr. Middleton Cancel her virtual set for 11/05 and 11/19 - infuse 3 doses weekly iron and then see her in 8 weeks inperson - labs same day. Thanks! documented in this encounterOhio[facility] Telephone encounter Note * Telephone Encounter - Kristofer Calix MD - 11/05/2023 5:39 PM EDT Thanks Brit - will forward to Rachael. [...] get you feeling better. Dr. Kane Arana [facility]07-[facility] Telephone encounter Note* Telephone Encounter - Roberta Haskins - 11/05/2023 4:23 PM EDT Patient has been scheduled for Venofer on 11/14, 11/21 and 11/28. Follow in in 8 weeks scheduled for 01/01. FELY: Patient has a couple questions. 1) Should she stop her oral iron that she takes once a day? 2) Since August, patient has had heart palpitations that she wanted to address with you. She states itstarted when she had per period. Her current symptoms include being ice cold, racing heart beat, sweaty and she's tired all day. Currently also stating she is on a blood thinner. Roberta Haskins [facility]07-08-[facility] Telephone encounter Note* Telephone Encounter - Roberta Haskins - 11/05/2023 12:47 PM EDT Appointment tomorrow cancelled. Andres tried calling her this morning and was unable to get a hold ofher. Will keep trying patient to schedule for Iron. Roberta Haskins [facility]07-[facility] Telephone encounter Note* Telephone Encounter - Roberta Haskins - 11/05/2023 12:47 PM EDT ----- Message from Rachael Johnson RN sent at 11/05/2023 11:53 AM EDT ----- ----- Message ----- From: Kristofer Calix MD Sent: 11/05/2023 11:33 AM EDT To: [facility] Triage Pool; [facility] Clerical Pool Perry Isidro - looks like you need Iron again. Dr. Middleton Cancel her virtual set for 11/05 and 11/19 - infuse 3 doses weekly iron and then see her in 8 weeks inperson - labs same day. Thanks! [facility] Hospital Discharge instructions Patient Education 10/23/2023 17:12:54 [...] with the flow of air through your nose.It can also block your sinuses and prevent [...] specializes in ear, nose, and throat disorders (sustainable systems analyst, or ENT) for more tests and treatment. [...] is uncommon, or have trouble breathing through yournose after using recommended medicines. You may need surgery to correct the deviated septum (septoplasty). Depending on the cause of your deviated septum, the procedure may be combined with sinus surgery or surgery to change the shape of your nose (rhinoplasty). Follow these instructions at home: Take dsdi-ivs-lpkwbdp and prescription medicines only as told by [...] night, talk with your health care provider aboutways to treat this. Contact a health care [...] specializes in ear, nose, and throat disorders (sustainable systems analyst, or ENT) for more tests and treatment. This information is not intended to replace advice given to you by your health care provider. Make sure you discuss any questions you have with your health care provider. Document Revised: 12/12/2021 Document Reviewed: 12/12/2021 [employer] Patient Education 2022 [employer]. 10/23/2023 17:12:52 Nasal Polyps Nasal Polyps Nasal polyps are growths that form in the nose. Inflammation in the nose or sinus openings can leadto changes in the tissue (mucosa) that lines [...] that causes increased production of thick mucus (cysticfibrosis). What are the signs or symptoms? Symptoms [...] instructions at home: Medicines Take or use pfzq-llm-whyhdtv and prescription medicines only as told by your health care provider. These may include nose drops or nasal sprays. Use solutions to wash or rinse out the inside of your nose (nasal washes or irrigations) as told byyour health care provider. Do not take medicines [...] help quitting, ask your health careprovider. Keep all follow-up visits. This is important. [...] provider. Document Revised: 04/05/2022 Document Reviewed: 04/05/2022 [employer] Patient Education 2022 [employer]. 10/23/2023 17:12:52 Nasal Polypectomy Nasal Polypectomy Nasal polypectomy is a procedure to remove polyps from the hollow space (nasal cavity) in the nose.Polyps are painless, noncancerous growths. The goal of this procedure is to relieve symptoms causedby nasal polyps. These symptoms include nasal congestion, [...] including vitamins, herbs, eye drops, creams, and ywnh-afp-gmqintu medicines. Any problems you or family members [...] provider tells you to take them. Taking wjhg-ahd-eshuqvk medicines, vitamins, herbs, and supplements. General instructions Do not use any products that contain nicotine or tobacco for at least 4 weeks before the procedure.These products include cigarettes, chewing tobacco, and vaping [...] congestion, nausea, and vomiting that you might experienceafter the procedure. ?A medicine to help you [...] to be removed later, or it may dissolveon its own. The procedure may vary among health care providers and hospitals. What happens after the procedure? Your blood pressure, heart rate, breathing rate, and blood oxygen level will be monitored until youleave the hospital or clinic. You may have [...] provider. Document Revised: 04/05/2022 Document Reviewed: 04/05/2022 [employer] Patient Education 2022 [employer]. 10/23/2023 17:12:46 BMI for Adults BMI for [...] numbers. This can be done either in [place] or metric measurements. Note that charts and online BMI calculators are available to help you find your BMI quickly and easily without having to do these calculations yourself. To calculate your BMI in [place] measurements: 1.Measure your weight in pounds [...] Centers for Disease Control and Prevention: www.cdc.gov [place] Heart Association: www.heart.org National Heart, Lung, and Blood [place]: www.nhlbi.nih.gov Summary Body mass index (BMI) is a number that is calculated from a person's weight and height. BMI may help estimate how much of a person's weight is composed of fat. BMI can help identify thosewho may be at higher risk for certain medical problems. BMI can be measured using [place] measurements or metric measurements. BMI charts are used to identify whether you are underweight, normal weight, overweight, or obese. This information is not intended to replace advice given to you by your health care provider. Make sure you discuss any questions you have with your health care provider. Document Revised: 01/07/2020 Document Reviewed: 11/14/2019 [employer] Patient Education 2022 [employer]. Follow Up Care 10/23/2023 08:49:41 With:Lourdes Urrutia Address: [address], [place] [address]- When: only if needed [facility] 05-31-2024 Hospital Discharge instructions Patient Education 09/28/2023 21:22:15 [...] Follow these instructions at home: Medicines Take hhsn-vhk-lwalrwt and prescription medicines only as told by [...] Watch your condition for any changes. Take txxs-qqi-cpitczz and prescription medicines only as told by [...] provider. Document Revised: 06/04/2020 Document Reviewed: 08/25/2019 [employer] Patient Education 2022 [employer]. Follow Up Care 09/28/2023 18:22:59 With:Penelope CASAS Address: [address] [place] [address] Business (1) When:Within 3 Day(s) [facility]05-31-2024 Hospital Discharge instructions Patient Education 09/28/2023 18:24:44 [...] numbers. This can be done either in [place] or metric measurements. Note that charts and online BMI calculators are available to help you find your BMI quickly and easily without having to do these calculations yourself. To calculate your BMI in [place] measurements: 1.Measure your weight in pounds [...] Centers for Disease Control and Prevention: www.cdc.gov [place] Heart Association: www.heart.org National Heart, Lung, and Blood [place]: www.nhlbi.nih.gov Summary Body mass index (BMI) is a number that is calculated from a person's weight and height. BMI may help estimate how much of a person's weight is composed of fat. BMI can help identify thosewho may be at higher risk for certain medical problems. BMI can be measured using [place] measurements or metric measurements. BMI charts are used to identify whether you are underweight, normal weight, overweight, or obese. This information is not intended to replace advice given to you by your health care provider. Make sure you discuss any questions you have with your health care provider. Document Revised: 01/07/2020 Document Reviewed: 11/14/2019 [employer] Patient Education 2022 [employer]. 09/28/2023 18:24:42 Hypertension, Adult, Rgfo-ua-Mmjs Hypertension, Adult Hypertension is another name for high blood pressure. High blood pressure forces your heart to workharder to pump blood. This can cause problems [...] at each meal with low-fat (lean) proteins. Low- fat proteins include fish, chicken without skin, eggs, [...] doctor. Keep all follow-up visits. Medicines Take smmx-cwr-jiamumr and prescription medicines only as told by your doctor. Follow directions carefully. Do not skip doses of blood pressure medicine. The medicine does not work as well if you skip doses.Skipping doses also puts you at risk for [...] provider. Document Revised: 02/02/2022 Document Reviewed: 02/02/2022 [employer] Patient Education 2022 [employer]. 09/28/2023 18:24:32 Abdominal Pain, Adult, Zyuj-gg-Xmcs Abdominal Pain, Adult Many things can cause belly (abdominal) pain. Most times, belly pain is not dangerous. Many cases of belly pain can be watched and treated at home. Sometimes, though, belly pain is serious. Your doctor will try to find the cause of your belly pain. Follow these instructions at home: Medicines Take wvrm-rkc-kvlpujm and prescription medicines only as told by [...] your belly pain for any changes. Take utgz-hzx-bvmwymi and prescription medicines only as told by [...] provider. Document Revised: 08/25/2019 Document Reviewed: 08/25/2019 [employer] Patient Education 2022 [employer]. Follow Up Care 09/28/2023 16:11:11 With:Emergency room Address: When: only if needed Comments:Patient was instructed to contact emergency room for any worsening abdominal pain, concerns, or complications. [facility] 05-31-2024 Evaluation + Plan noteExtracted from:Title: ED NoteAuthor:Fe QUINTEROS, JansenDate:09/28/23 1. Abdominal pain (R10.9: Un specified abdominal pain) Orders: Sodium Chloride 0.9% intravenous solution, 1,000 mL, Soln-IV, IV, Once, Stop date 09/28/23 18:42:00EDT, STAT, Start date 09/28/23 18:42:00 EDT, Infuse over 61, minute(s) Basic Metabolic Panel Beta hCG Qual CBC w/ Auto Diff Hepatic Function Panel Lipase Level UA with Cult Rflx Future Appointments Appointment Date:12/03/2023 12:40:00 PM Scheduled Provider:Penelope CASAS DO, FAAFP Location:[facility] Appointment Type: Open Future Scheduled Tests Laboratory* HgbA1c 08/03/23 [facility]05-30-2024 Telephone encounter Note* Telephone Encounter - Roberta Haskins - 09/27/2023 4:38 PM EDT Attempt has been made x2 to reschedule patient. She did not have labs drawn. Roberta Haskins [facility]05-30-[facility]24 Miscellaneous Notes* Telephone Encounter - Roberta Haskins - 09/27/2023 4:38 PM EDT Attempt has been made x2 to reschedule patient. She did not have labs drawn. Roberta Haskins documented in this encounter[facility] History of Present illness Narrative* Kristofer Calix MD - 09/26/2023 9:11 AM EDT Did not have labs done to prep for this visit - reschedule. Kristofer Calix MD documented in this [facility] Hospital Discharge instructions Patient Education 08/03/2023 [...] your health care provider or diet and sustainable agriculture specialist (dietitian). This may include: ?Eating fewer [...] provider. Document Revised: 06/12/2021 Document Reviewed: 06/12/2021 [employer] Patient Education 2022 [employer]. Follow Up Care 02/15/2023 10:07:52 With:PRAVEEN RESENDEZ FAAFP, Penelope Tony, CHRIS, PED Address: [facility] [address], [place] [address]- When:Within 4 Month(s) [facility] 04-05-2024 Evaluation + Plan note Future Scheduled Tests Laboratory* HgbA1c 08/03/23 Radiology* CT Soft Tissue Neck w/ Contrast 11/12/23 [facility] 02-22-2024 Hospital Discharge instructions Patient [...] or if there is an kennedy for Twenga. Most glucose meters store a record of [...] mayhave. Where to find more information The [place] Diabetes Association: www.diabetes.org The Association of Diabetes [...] provider. Document Revised: 01/12/2021 Document Reviewed: 01/12/2021 [employer] Patient Education 2022 [employer]. 06/21/2023 06:07:34 Preventing Iron Deficiency Anemia, Adult [...] iron. Foods high in vitamin C include: ?[place] fruits, such as tai, oranges, and grapefruits. [...] iron supplement is right for you. Take fhjv-fdt-svbglwt and prescription medicines only as told by your health care provider. Keep all follow-up visits. Where to find more information Learn more about preventing iron deficiency from: National Heart, Lung, and Blood [place]: www.nhlbi.nih.gov [place] [employer] Hematology: www.hematology.org Contact a health [...] provider. Document Revised: 05/24/2022 Document Reviewed: 05/24/2022 [employer] Patient Education 2022 [employer]. 06/21/2023 06:07:28 BMI for Adults BMI for [...] numbers. This can be done either in [place] ([place] or metric measurements. Note that charts and online BMI calculators are available to help you find your BMI quickly and easily without having to do these calculations yourself. To calculate your BMI in [place] ([place].S.) measurements: 1.Measure your weight in pounds [...] Centers for Disease Control and Prevention: www.cdc.gov [place] Heart Association: www.heart.org National Heart, Lung, and Blood [place]: www.nhlbi.nih.gov Summary Body mass index (BMI) is a number that is calculated from a person's weight and height. BMI may help estimate how much of a person's weight is composed of fat. BMI can help identify thosewho may be at higher risk for certain medical problems. BMI can be measured using [place] measurements or metric measurements. BMI charts are used to identify whether you are underweight, normal weight, overweight, or obese. This information is not intended to replace advice given to you by your health care provider. Make sure you discuss any questions you have with your health care provider. Document Revised: 01/07/2020 Document Reviewed: 11/14/2019 [employer] Patient Education 2022 [employer]. Follow Up Care 06/19/2023 13:39:56 With:PRAVEEN RESENDEZ FAAFP, CHRIS Perez, PED Address: [address], [place] [address]- When: Unknown [facility] 02-20-2024 Miscellaneous Notes* Telephone Encounter [...] Rachael Johnson RN * Telephone Encounter - Krsitofer Calix MD - 06/19/2023 11:59 AM EST [...] lab results Roberta Haskins documented in this encounterOhio[facility]-16-2024 Instructions* Patient Instructions* Nathaly Carney - [...] Calcium with CMP documented in this encounterOhiohealth [facility]02-16-2024 Nurse Note* Serina Horton MA - [...] Serina Dawson MA documented in this encounterOhiohealth [facility]02-16-2024 History of Present illness Narrative* Kristofer Calix MD - 06/15/2023 2:00 PM EST Images from the original note were not included. NAME: Sanna Rendon CLINIC NO.: [id number] DATE OF SERVICE: June 15, 2023 (Levon) [...] later in 2018. These were found in [place], [place]. I don't have access to these [...] target-like rash shortly before presenting to [facility] in 2016 with headaches and was [...] Monge soon. When she hada stoke in [place], she had symptoms up to a month [...] and stayed on Lovenox Hgb 13.1 @ [facility] Recommended ER if persisting bleeding but she [...] and at age 69. Both lived in [facility] but she was adopted. She was not able to see ID in October and will be seeing Dr. Baugh next week. Also will have her see Dr. Hamlin for her clotting disorder and make any other recommendations to optimize her treatment. Updated Visit, October 08, 2020: Telephone only Received call from pt stating she was seen in [facility] ER for numbness in her chest, throat, and extremities, and sob which has been worsening over the last week. We arranged a telephone visit for her toreview questions with me. Sanna Rendon is a 34 year old female seen for Hypercoagulable state and recent concerns and symptoms that required her to be seen at [facility] ER. She went to the ER with Gradual worsening of breathing after progressive tingling of fingers and legs. She currently remains very fatigued even though she is sleeping well. Now recalls that before her stroke she remembers having a bull's eye rash and was seen with severe headaches in [place], [place] - was found to have a [...] a root canal and was sent to [facility] for MRI which was negative but non-contrasted. [...] history goes back to January 2016 in [facility] where she had persisting headaches and slurred speech followed by lower extremity weakness. This took a few months to resolve and she is back to her normal state of being but some point in time during her her next she was seen by Dr. Humera Hyde in [place] as well and was found to have [...] which included preparing to see the patient, qqob-kb-qjfz patient care, completing clinical documentation, performing a medically appropriate examination, counseling and educating the patient/family/caregiver, ordering medications, tests, or p rocedures, independently interpreting results (not separately reported), communicating results to the patient/family/caregiver, and care coordination (not separately reported). Kristofer Calix MD, CPE Hematology and Oncology Services Provided at: [place], [place] Scribe Attestation: This note was scribed [...] by me and under my direction. CC: [facility] Pra[facility], [address] [place] [address] Humaira Gaviria MD [address] [place] [id number] MD Cosmo Kingston MD Michael Blank, MD documented in this encounterOhiohealth [facility]02-12-2024 Miscellaneous Notes* Telephone Encounter - Ebony Redding Ma - 06/11/2023 10:43 AM EST Labs for appointment on 06/15. Ebony Redding Ma documented in this encounterOhiohealth [facility]02-12-2024 Miscellaneous Notes* Telephone Encounter - Nicol [...] since she was last seen by him. [facility] [address], [place], Please fax records Andres, Please follow up on this appt. Thank you documented in this encounterOhiohealth [facility]02-01-2024 History of Present illness Narrative* Kristofer Calix MD - 05/31/2023 4:30 PM EST Images from the original note were not included. NAME: Sanna Rendon CLINIC NO.: [id number] DATE OF SERVICE: May 31, 2023 (Levon) Some elements in this clinic note that are critical to medical decision making have been carefully reviewed and included from a prior clinic note dated: March 19, 2023 (Levon) Additional Clinicians involved in Sanna Rendon's care: Drs. Herrmann, Jorge Monge, Humaira Gaviria, VIRTUAL VISIT PROGRESS NOTE This is a virtual visit using [employer] Zoom Video Visit. It required patient- provider interaction for the medical decision making as documented below. I have communicated my name and active licensure. The patient's identity and physical location wereverified at the time of this visit. Either the patient or their legal strategic partnership representative has been informed of the risks and benefits of -- and alternatives to -- treatment through a remote evaluation andconsents to proceed with the evaluation remotely. CC: hypercoag state. ASSESSMENT: 37 year old woman 25 weeks presents with a prior history of CVA in 2016 and anantiphospholipid antibody that was identified much later in 2018. These were found in [place], [place]. I don't have access to these [...] target-like rash shortly before presenting to [facility] in 2016 with headaches and was [...] and stayed on Lovenox Hgb 13.1 @ [facility] Recommended ER if persisting bleeding but she [...] and at age 69. Both lived in [facility] but she was adopted. She was not able to see ID in October and will be seeing Dr. Baugh next week. Also will have her see Dr. Hamlin for her clotting disorder and make any other recommendations to optimize her treatment. Updated Visit, October 08, 2020: Telephone only Received call from pt stating she was seen in [facility] ER for numbness in her chest, throat, and extremities, and sob which has been worsening over the last week. We arranged a telephone visit for her chanw questions with me. Sanna Rendon is a 34 year old female seen for Hypercoagulable state and recent concerns and symptoms that required her to be seen at [facility] ER. She went to the ER with Gradual worsening of breathing after progressive tingling of fingers and legs. She currently remains very fatigued even though she is sleeping well. Now recalls that before her stroke she remembers having a bull's eye rash and was seen with severe headaches in [facility] was found to have a stroke [...] a root canal and was sent to [facility] for MRI which was negative but non-contrasted. [...] history goes back to January 2016 in [facility] where she had persisting headaches and slurred speech followed by lower extremity weakness. This took a few months to resolve and she is back to her normal state of being but some point in time during her her next she was seen by Dr. Humera Hyde in [place] as well and was found to have [...] CPE Hematology and Oncology Services Provided at: [facility], [place], [place] CC: MD Wilton Day, [address] [place] [address] Humaira Gaviria MD [address] [place] [address] MD Cosmo Kingston MD Michael Blank, MD documented in this encounterOhiohealth [facility]02-01-2024 Instructions* Patient Instructions* Kristofer Calix MD - [...] Calcium with CMP documented in this encounterOhiohealth [facility]01-26-2024 Hospital Discharge instructions Patient Education 05/25/2023 [...] your ears completely after. General instructions Take mqip-bdx-nkthjpc and prescription medicines only as told by [...] provider. Document Revised: 06/27/2021 Document Reviewed: 06/27/2021 [employer] Patient Education 2022 [employer] 05/25/2023 12:02:06 Dyshidrotic Eczema Dyshidrotic Eczema [...] care provider who specializes in skin conditions (customs import specialist) tohelp diagnose and treat this condition. How [...] locks in moisture. Medicines Take and apply wiqm-eqy-qflohin and prescription medicines only as told by [...] provider. Document Revised: 01/24/2021 Document Reviewed: 01/24/2021 [employer] Patient Education 2022 [employer]. 05/25/2023 12:02:02 Allergies, Adult, Ovvn-wh-Ntmj Allergies, Adult An allergy means that your [...] instructions at home: Medicines Take or apply kgsm-sgm-rawhtii and prescription medicines only as told by [...] to the hospital. Summary Take or apply fufq-ycs-hcizoyk and prescription medicines only as told by [...] provider. Document Revised: 02/25/2020 Document Reviewed: 02/25/2020 [employer] Patient Education 2022 [employer]. Follow Up Care 05/21/2023 12:21:27 With:PRAVEEN RESENDEZ FAAFP, CHRIS Perez, PED Address: [address] [place] [id number]- When:Within 2 Month(s) [facility] 11-20-2023 History of Present illness Narrative* Kristofer Calix MD - 03/19/2023 4:45 PM EST Images from the original note were not included. NAME: Sanna Rendon CLINIC NO.: [id number] DATE OF SERVICE: March 19, 2023 (Levon) [...] visit. Either the patient or their legal strategic partnership representative has been informed of the risks and benefits of -- and alternatives to -- treatment through a remote evaluation andconsents to proceed with the evaluation remotely. CC: hypercoag state. ASSESSMENT: 37 year old woman 25 weeks presents with a prior history of CVA in 2016 and anantiphospholipid antibody that was identified much later in 2018. These were found in [place], [place]. I don't have access to these [...] target-like rash shortly before presenting to [facility] in 2016 with headaches and was [...] and stayed on Lovenox Hgb 13.1 @ [facility] Recommended ER if persisting bleeding but she [...] and at age 69. Both lived in [facility] but she was adopted. She was not able to see ID in October and will be seeing Dr. Baugh next week. Also will have her see Dr. Hamlin for her clotting disorder and make any other recommendations to optimize her treatment. Updated Visit, October 08, 2020: Telephone only Received call from pt stating she was seen in [facility] ER for numbness in her chest, throat, and extremities, and sob which has been worsening over the last week. We arranged a telephone visit for her toreview questions with me. Sanna Rendon is a 34 year old female seen for Hypercoagulable state and recent concerns and symptoms that required her to be seen at [facility] ER. She went to the ER with Gradual worsening of breathing after progressive tingling of fingers and legs. She currently remains very fatigued even though she is sleeping well. Now recalls that before her stroke she remembers having a bull's eye rash and was seen with severe headaches in [place], [place] - was found to have a [...] a root canal and was sent to [facility] for MRI which was negative but non-contrasted. [...] history goes back to January 2016 in [facility] where she had persisting headaches and slurred speech followed by lower extremity weakness. This took a few months to resolve and she is back to her normal state of being but some point in time during her her next she was seen by Dr. Humera Hyde in [place] as well and was found to have [...] CPE Hematology and Oncology Services Provided at: [place], [place] CC: MD Wilton Day, [address] [place] [address] Humaira Gaviria MD [address] [place] [address] MD Cosmo Kingston MD Michael Blank, MD documented in this encounterOhiohealth [facility]11-20-2023 Instructions* Patient Instructions* Kristofer Calix MD - 03/19/2023 4:44 PM EST Continue Lovenox - patient prefers 40 mg (rather than rec 80mg) Take B12 supplement in the form of a sublingual tablet. Take Vitamin D3 5000 international unit(s) daily Check labs in 8 weeks Phone / Virtual call after documented in this encounterOhiohealth [facility]10-19-2023 Hospital Discharge instructions Patient Education 02/15/2023 10:13:08 Ear Drops, Adult, Cgia-go-Bmro Ear Drops, Adult Your doctor has found [...] cannot use soap and water, use hand can conveyor feeder. 2.Make sure your ears are clean and [...] you cannot use soapand water, use hand can conveyor feeder. Follow these instructions at home: Use the [...] provider. Document Revised: 02/11/2020 Document Reviewed: 02/11/2020 [employer] Patient Education 2022 [employer] 02/15/2023 10:13:05 Otitis Externa, Gotl-mc-Tysl Otitis Externa Otitis externa is an infection [...] if you start to feel better. Take tykn-sck-egakmts and prescription medicines only as told by [...] provider. Document Revised: 06/29/2021 Document Reviewed: 06/29/2021 [employer] Patient Education 2022 [employer]. Follow Up Care 02/14/2023 12:28:12 With:PRAVEEN RESENDEZ FAAFP, CHRIS Perez, PED Address: [address], [place] [address]- When:Within 2 Month(s) [facility] 08-25-2023 Hospital Discharge instructions Patient [...] including vitamins, herbs, eye drops, creams, and rjcp-npv-armzcst medicines. ?Whether you are or may be [...] provider. Document Revised: 12/28/2021 Document Reviewed: 11/19/2020 [employer] Patient Education 2022 [employer] 12/22/2022 15:19:23 Fatigue Fatigue If you [...] Follow these instructions at home: Medicines Take xyzc-edv-svjcgdy and prescription medicines only as told by [...] the National Suicide Prevention Lifeline at or 468. This is open 24 hours a day. Text the Crisis Text Line at 668342. Summary If you have fatigue, you feel [...] provider. Document Revised: 02/06/2022 Document Reviewed: 02/06/2022 [employer] Patient Education 2022 [employer]. Follow Up Care 12/22/2022 10:22:02 With:Lourdes Urrutia Address: [address] [place] [address], [facility] [place] [address]- When: only if needed [facility] 08-25-2023 Instructions* Patient Instructions* Kristofer Calix MD - 12/22/2022 10:13 AM EDT Continue Lovenox - patient prefers 40 mg (rather than rec 80mg) Take B12 supplement in the form of a sublingual tablet. Take Vitamin D3 5000 international unit(s) daily Check labs in 8 weeks Phone / Virtual call after documented in this encounterOhiohealth [facility]08-25-2023 History of Present illness Narrative* Kristofer Calix MD - 12/22/2022 9:55 AM EDT Images from the original note were not included. Kristofer Calix MD NAME: Sanna Rendon CLINIC NO.: [id number] DATE OF SERVICE: December 22, 2022 (berna) Some elements in this clinic [...] visit. Either the patient or their legal strategic partnership representative has been informed of the risks and benefits of -- and alternatives to -- treatment through a remote evaluation andconsents to proceed with the evaluation remotely. CC: hypercoag state. ASSESSMENT: 37 year old woman with a prior history of CVA in 2016 and an antiphospholipid antibody that was identified much later in 2018. These were found in [place], [place]. I don't have access to these [...] target-like rash shortly before presenting to [facility] in 2016 with headaches and was [...] and stayed on Lovenox Hgb 13.1 @ [facility] Recommended ER if persisting bleeding but she [...] and at age 69. Both lived in [place], [place] - but she was adopted. She was not able to see ID in October and will be seeing Dr. Baugh next week. Also will have her see Dr. Hamlin for her clotting disorder and make any other recommendations to optimize her treatment. Updated Visit, October 08, 2020: Telephone only Received call from pt stating she was seen in [facility] ER for numbness in her chest, throat, and extremities, and sob which has been worsening over the last week. We arranged a telephone visit for her toreview questions with me. Sanna Rendon is a 34 year old female seen for Hypercoagulable state and recent concerns and symptoms that required her to be seen at [facility] ER. She went to the ER with Gradual worsening of breathing after progressive tingling of fingers and legs. She currently remains very fatigued even though she is sleeping well. Now recalls that before her stroke she remembers having a bull's eye rash and was seen with severe headaches in [place], [place] - was found to have a [...] a root canal and was sent to [facility] for MRI which was negative but non-contrasted. [...] history goes back to January 2016 in [facility] where she had persisting headaches and slurred speech followed by lower extremity weakness. This took a few months to resolve and she is back to her normal state of being but some point in time during her her next she was seen by Dr. Humera Hyde in [place] as well and was found to have [...] CPE Hematology and Oncology Services Provided at: [place], [place] CC: MD Wilton Day, [address] [place] [address] Humaira Gaviria MD [address] [facility] [address] MD Cosmo Kingston MD Michael Blank, MD documented in this encounterOhiohealth [facility]ide [facility]08-16-2023 Miscellaneous Notes* Telephone Encounter - Roberta [...] appointment. Roberta Haskins * Telephone Encounter - Jocelynelester Roberta - 12/11/2022 4:[address] Luna, patient did not have her labs drawn and will need this rescheduled. Call placed to patient, no answer and unable to leave message; line just rings busy . Will attempt to contact patientat a later time. Roberta Haskins documented in this encounterOhiohealth [facility]06-23-2023 Hospital Discharge instructions Patient Education 10/20/2022 [...] your health care provider or diet and sustainable agriculture specialist (dietitian). This may include: ?Eating fewer [...] provider. Document Revised: 06/12/2021 Document Reviewed: 06/12/2021 [employer] Patient Education 2022 [employer]. 10/20/2022 10:37:18 Preventing Type 2 Diabetes Mellitus [...] with a registered dietitian. This diet and sustainable agriculture specialist can help you make a healthy eating plan and help you understand portion sizes and food labels. Where to find support Ask your health care provider to recommend a registered dietitian, a certified diabetes care and business education instructor, or a weight loss program. Look for local or online weight loss groups. Join a gym, fitness club, or outdoor activity group, such as a walking club. Where to find more information For help and guidance and to learn more about diabetes and diabetes prevention, visit: [place] Diabetes Association (ADA): www.diabetes.org National [place] of Diabetes and Digestive and Kidney Diseases: www.niddk.nih.gov To learn more about healthy eating, visit: U.S. Department of Agriculture ([place]): www.choosemyplate.gov Office of Disease Prevention and Health [...] provider. Document Revised: 07/11/2021 Document Reviewed: 07/11/2021 [employer] Patient Education 2022 [employer]. 10/20/2022 10:37:17 Preventing Hypoglycemia Preventing Hypoglycemia Hypoglycemia [...] your hypoglycemia. Where to find more information [place] Diabetes Association: www.diabetes.org National [place] of Diabetes and Digestive and Kidney Diseases: [...] provider. Document Revised: 03/17/2021 Document Reviewed: 03/17/2021 [employer] Patient Education 2022 [employer]. 10/20/2022 10:37:16 Gestational Diabetes Mellitus, Diagnosis, Znfd-om-Qxmz Gestational Diabetes Mellitus, Diagnosis Gestational diabetes mellitus [...] follow-up visits. Where to find more information [place] Diabetes Association (ADA): diabetes.org Association of Diabetes Care & Education Specialists (ADCES): diabeteseducator.org Centers for Disease Control and Prevention (CDC): cdc.gov [place] Association: americanpregnancy.org U.S. Department of Agriculture MyPlate: [...] provider. Document Revised: 09/20/2020 Document Reviewed: 09/20/2020 [employer] Patient Education 2022 [employer]. Follow Up Care 09/19/2022 14:47:09 With:PRAVEEN RESENDEZ FAAFP, Penelope Tony, CHRIS, PED Address: [address], [place] [address]- When:Within 3 Month(s) [facility] 06-01-2023 History of Present illness Narrative* Kristofer Calix MD - 09/28/2022 5:00 PM EDT Images from the original note were not included. Kristofer Calix MD NAME: Sanna Rendon CLINIC NO.: [id number] DATE OF SERVICE: September 28, 2022 (berna) Some elements in this clinic [...] visit. Either the patient or their legal strategic partnership representative has been informed of the risks and benefits of -- and alternatives to -- treatment through a remote evaluation andconsents to proceed with the evaluation remotely. CC: hypercoag state. ASSESSMENT: 36 year old woman 25 weeks presents with a prior history of CVA in 2016 and anantiphospholipid antibody that was identified much later in 2018. These were found in [place], [place]. I don't have access to these [...] target-like rash shortly before presenting to [facility] in 2016 with headaches and was [...] and stayed on Lovenox Hgb 13.1 @ [facility] Recommended ER if persisting bleeding but she [...] and at age 69. Both lived in [place], [place] - but she was adopted. She was not able to see ID in October and will be seeing Dr. Baugh next week. Also will have her see Dr. Hamlin for her clotting disorder and make any other recommendations to optimize her treatment. Updated Visit, October 08, 2020: Telephone only Received call from pt stating she was seen in [facility] ER for numbness in her chest, throat, and extremities, and sob which has been worsening over the last week. We arranged a telephone visit for her toreview questions with me. Sanna Rendon is a 34 year old female seen for Hypercoagulable state and recent concerns and symptoms that required her to be seen at [facility] ER. She went to the ER with Gradual worsening of breathing after progressive tingling of fingers and legs. She currently remains very fatigued even though she is sleeping well. Now recalls that before her stroke she remembers having a bull's eye rash and was seen with severe headaches in [place], [place] - was found to have a [...] a root canal and was sent to [facility] for MRI which was negative but non-contrasted. [...] history goes back to January 2016 in [facility] where she had persisting headaches and slurred speech followed by lower extremity weakness. This took a few months to resolve and she is back to her normal state of being but some point in time during her her next she was seen by Dr. Humera Hyde in [place] as well and was found to have [...] CPE Hematology and Oncology Services Provided at: [place], [place] CC: MD Wilton Day, [address] [place] [address] Humaira Gaviria MD [address] [place] [address] [place] [address] MD Cosmo Kingston MD Michael Blank, MD documented in this encounterOhiohealth Riverside [facility] Hospital05-24-2023 Miscellaneous Notes* Telephone Encounter - Cheri Acharya Sec - 09/20/2022 7:06 AM EDT Cxed appt * Telephone Encounter - Valeri Yeung RN - 09/19/2022 3:29 PM EDT Patient would like to have labs drawn at [facility]. Called [facility] lab to get fax number. Lab orders faxed to [phone] Valeri Yeung RN PSS: Can you cancel lab appointment for 09/21/22 here. Thanks. Valeri Yeung RN documented in this encounterOhiohealth Riverside Methodist Hospital04-04-2023 Instructions* Patient Instructions* Kristofer Calix MD - 08/01/2022 10:56 AM EDT Continue Lovenox - patient prefers 40 mg (rather than rec 80mg) 8 weeks - labs Phone / Virtual call after documented in this encounterOhiohealth Riverside Methodist Hospital03-30-2023 History of Present illness Narrative* Kristofer Calix MD - 07/27/2022 1:18 PM EDT NAME: Sanna Rendon CLINIC NO.: [id number] DATE OF SERVICE: July 27, 2022 (Levon) [...] later in 2018. These were found in [place], [place]. I don't have access to these [...] target-like rash shortly before presenting to [facility] in 2016 with headaches and was [...] and at age 69. Both lived in [facility] but she was adopted. She was not able to see ID in October and will be seeing Dr. Baugh next week. Also will have her see Dr. Hamlin for her clotting disorder and make any other recommendations to optimize her treatment. Updated Visit, October 08, 2020: Telephone only Received call from pt stating she was seen in [facility] ER for numbness in her chest, throat, and extremities, and sob which has been worsening over the last week. We arranged a telephone visit for her chanw questions with me. Sanna Rendon is a 34 year old female seen for Hypercoagulable state and recent concerns and symptoms that required her to be seen at [facility] ER. She went to the ER with Gradual worsening of breathing after progressive tingling of fingers and legs. She currently remains very fatigued even though she is sleeping well. Now recalls that before her stroke she remembers having a bull's eye rash and was seen with severe headaches in [facility] was found to have a stroke [...] a root canal and was sent to [facility] for MRI which was negative but non-contrasted. [...] history goes back to January 2016 in [facility] where she had persisting headaches and slurred speech followed by lower extremity weakness. This took a few months to resolve and she is back to her normal state of being but some point in time during her her next she was seen by Dr. Humera Hyde in [place] as well and was found to have [...] which included preparing to see the patient, tzoo-lb-zxwh patient care, completing clinical documentation, obtaining and/or reviewing separately obtained history, performing a medically appropriate examination, counseling and educating the pat ient/family/caregiver, ordering medications, tests, or procedures, independently interpreting results (not separately reported), and care coordination (not separately reported). Kristofer Calix MD, CPE Hematology and Oncology Services Provided at: [place], [place] CC: MD Wilton Day, [address] [place] [address] Humaira Gaviria MD [address] [place] [id number] MD Cosmo Kingston MD Michael Blank, MD documented in this encounterOhiohealth Riverside Methodist Hospital12-07-2022 History of Present illness Narrative* Alison Linares [...] standard infusion rate. documented in this encounterOhiohealth Riverside Methodist Hospital12-06-2022 Miscellaneous Notes* Telephone Encounter - Marleen [...] questions answered. Pt transferred to front desk receptionist at her request so she can reschedule dates of IV iron d/t otherappts. FELY: Pt would like to have Venofer ordered and not get Monoferric even if approved. Please place orders if agreeable. Meme Gonzalez RN documented in this [facility]12-01-2022 Miscellaneous Notes* Telephone Encounter - Roberta [...] were not included. Kristofer Calix MD [facility] Triage Pool; [facility] Clerical Pool She needs iron MUNIRA - if monoferric isn't approved, lets get her in weekly for Venna for. * Telephone Encounter - Roberta Haskins - 03/27/2022 2:57 PM EST 2. Consider IV iron a. Triage nurse to please call iron results when available this week documented in this encounterOhiohealth Riverside Methodist Hospital11-28-2022 Instructions* Patient Instructions* Kristofer Calix MD - 03/27/2022 2:51 PM EST Continue Lovenox - patient prefers 40 mg (rather than rec 80mg) Consider IV iron Triage nurse to please call iron results when available this week Will recheck antiphospholipid antibodies as ordered and every 6 months. RTC in 8 weeks - labs same day. documented in this encounterOhiohealth Riverside Methodist Hospital11-28-2022 History of Present illness Narrative* Kristofer Calix MD - 03/27/2022 2:15 PM EST Images from the original note were not included. NAME: Sanna Rendon CLINIC NO.: [id number] DATE OF SERVICE: March 27, 2022 (Levon) Some elements in this clinic note that are critical to medical decision making have been carefully reviewed and included from a prior clinic note dated: January 30, 2022 (Levon) Additional Clinicians involved in Sanna Rendon's care: Drs. Herrmann, Druv MongeHumaira brock, CC: hypercoag state. ASSESSMENT: 36 year old woman 25 weeks presents with a prior history of CVA in 2016 and anantiphospholipid antibody that was identified much later in 2018. These were found in [place], [place]. I don't have access to these [...] target-like rash shortly before presenting to [facility] in 2016 with headaches and was [...] and at age 69. Both lived in [facility] but she was adopted. She was not able to see ID in October and will be seeing Dr. Baugh next week. Also will have her see Dr. Hamlin for her clotting disorder and make any other recommendations to optimize her treatment. Updated Visit, October 08, 2020: Telephone only Received call from pt stating she was seen in [facility] ER for numbness in her chest, throat, and extremities, and sob which has been worsening over the last week. We arranged a telephone visit for her chanw questions with me. Sanna Rendon is a 34 year old female seen for Hypercoagulable state and recent concerns and symptoms that required her to be seen at [facility] ER. She went to the ER with Gradual worsening of breathing after progressive tingling of fingers and legs. She currently remains very fatigued even though she is sleeping well. Now recalls that before her stroke she remembers having a bull's eye rash and was seen with severe headaches in [place], [place] - was found to have a [...] a root canal and was sent to [facility] for MRI which was negative but non-contrasted. [...] history goes back to January 2016 in [facility] where she had persisting headaches and slurred speech followed by lower extremity weakness. This took a few months to resolve and she is back to her normal state of being but some point in time during her her next she was seen by Dr. Humera Hyde in [place] as well and was found to have [...] which included preparing to see the patient, aaxx-ue-nxat patient care, completing clinical documentation, obtaining and/or reviewing separately obtained history, performing a medically appropriate examination, counseling and educating the pat ient/family/caregiver, ordering medications, tests, or procedures, independently interpreting results (not separately reported), and care coordination (not separately reported). Kristofer Calix MD, CPE Hematology and Oncology Services Provided at: [place], [place] CC: MD Wilton Day, [address] [place] [address] Humaira Gaviria MD [address] [place] [id number] MD Cosmo Kingston MD Michael Blank, MD documented in this encounterOhiohealth Riverside [facility] Hospital10-03-2022 Instructions* Patient Instructions* Kristofer Calix MD - 01/30/2022 12:[address] Hamlin's expertise and will prescribe Lovenox - patient prefers 40 mg (rather than rec 80mg) Will recheck antiphospholipid antibodies as ordered and every 6 months. RTC in 8 weeks - labs same day. documented in this encounterOhiohealth Riverside [facility] Hospital10-03-2022 History of Present illness Narrative* Kristofer Calix MD - 01/30/2022 11:59 AM EDT Images from the original note were not included. NAME: Sanna Rendon CLINIC NO.: [id number] DATE OF SERVICE: January 30, 2022 Some [...] later in 2018. These were found in [place], [place]. I don't have access to these [...] target-like rash shortly before presenting to [facility] in 2016 with headaches and was [...] and at age 69. Both lived in [facility] but she was adopted. She was not able to see ID in October and will be seeing Dr. Baugh next week. Also will have her see Dr. Hamlin for her clotting disorder and make any other recommendations to optimize her treatment. Updated Visit, October 08, 2020: Telephone only Received call from pt stating she was seen in [facility] ER for numbness in her chest, throat, and extremities, and sob which has been worsening over the last week. We arranged a telephone visit for her franci questions with me. Sanna Rendon is a 34 year old female seen for Hypercoagulable state and recent concerns and symptoms that required her to be seen at [facility] ER. She went to the ER with Gradual worsening of breathing after progressive tingling of fingers and legs. She currently remains very fatigued even though she is sleeping well. Now recalls that before her stroke she remembers having a bull's eye rash and was seen with severe headaches in [place], [place] - was found to have a [...] a root canal and was sent to [facility] for MRI which was negative but non-contrasted. [...] history goes back to January 2016 in [facility] where she had persisting headaches and slurred speech followed by lower extremity weakness. This took a few months to resolve and she is back to her normal state of being but some point in time during her her next she was seen by Dr. Humera Hyde in [place] as well and was found to have [...] which included preparing to see the patient, ycrb-jf-hdrp patient care, completing clinical documentation, obtaining and/or reviewing separately obtained history, performing a medically appropriate examination, counseling and educating the pat ient/family/caregiver, and ordering medications, tests, or procedures. Kristofer Calix MD, [facility] [place], [place] CC: MD Chalino Dayy [place]mann, [address] [place] [address] Humaira Gaviria MD [address] [facility] [address] MD Cosmo Kingston MD Michael Blank, MD documented in this encounterOhiohealth Riverside Methodist Hospital10-03-2022 Nurse Note* Serina Dawson MA - 01/30/2022 11:55 AM EDT Patient states she may be diagnosed with gestational diabetes, she was from 215 to 52 a couple hours later after eating wheat cereal. She sees OB tomorrow. Serina Dawson MA documented in this encounterOhiohealth Riverside [facility] Hospital09-02-2022 Miscellaneous Notes* Telephone Encounter - Tonja Pope RN - 12/30/2021 10:15 AM EDT Call received from Sanna requesting refill of Lovenox 40 mg to be sent to [facility] in [place]. FELY: Please review and approve if you agree. Tonja Chery RN documented in this encounterOhiohealth Riverside [facility] Hospital06-13-2022 Miscellaneous Notes* Telephone Encounter - Meme Easton RN - 10/10/2021 12:15 PM EDT Received call from pt requesting refill of Lovenox 40 mg to be sent to [facility] in [place]. FELY: Pt also states she had one episode of blood in her stool which was dripping blood which concerned her. She is not ready to move to 80 mg of Lovenox at this time. Order pending. Please review and sign if agreeable. Meme Easton RN documented in this encounterOhiohealth Riverside [facility] Hospital05-10-2022 Miscellaneous Notes* Telephone Encounter - Kristofer Calix [...] Meme Easton RN documented in this encounterOhiohealth Riverside Methodist Hospital05-09-2022 Miscellaneous Notes* Telephone Encounter - Meme [...] Meme Easton RN documented in this encounterOhiohealth Riverside [facility] Hospital04-25-2022 Miscellaneous Notes* Telephone Encounter - Meme [...] Meme Easton RN documented in this encounterOhiohealth Riverside Methodist Hospital04-22-2022 Hospital Discharge instructions Patient Education 08/19/2021 [...] including vitamins, herbs, eye drops, creams, and twrw-zxx-jycwvvs medicines. ?Whether you are or may be [...] 02/11/2008 Document Revised: 08/05/2019 Document Reviewed: 02/18/2018 [employer] Patient Education 2020 [employer] 08/19/2021 13:02:21 Dysuria Dysuria Dysuria is [...] alcohol may irritate the prostate. Medicines Take oitu-uyw-dumotjh and prescription medicines only as told by [...] 01/12/2005 Document Revised: 03/29/2018 Document Reviewed: 01/31/2018 [employer] Patient Education 2020 [employer] 08/19/2021 13:02:17 Budget-Friendly Healthy Eating Budget-Friendly [...] frozen fruits, and frozen vegetables. Avoid buying tushf-ed-npp foods, such as pre-cut fruits and vegetables [...] 12/18/2014 Document Revised: 04/17/2018 Document Reviewed: 04/17/2018 [employer] Patient Education 2020 [employer]. 08/19/2021 13:02:15 BMI for Adults BMI for [...] height. This can be done either in [place] or metric measurements. Note that charts are available to help you find your BMI quickly and easily without having to do these calculations yourself. To calculate your BMI in [place] measurements, your health care provider will: [...] medical problems. BMI can be measured using [place] measurements or metric measurements. To interpret your [...] 12/26/2004 Document Revised: 03/29/2018 Document Reviewed: 02/27/2018 [employer] Patient Education 2020 [employer]. 08/19/2021 13:02:11 Paresthesia Paresthesia Paresthesia is an [...] fried or sweet foods. General instructions Take mvak-zuq-ukaqrmr and prescription medicines only as told by [...] 04/06/2003 Document Revised: 05/12/2019 Document Reviewed: 04/25/2018 [employer] Patient Education 2020 [employer] Follow Up Care 08/19/2021 09:17:52 With:Penelope CASAS DO, FAAFP, FAM, PED Address: [place] [address]- When:1 to 2 weeks [facility] [place] 04-22-2022 Evaluation + Plan note Future Scheduled Tests Radiology* XR Spine Lumbosacral Minimum 4 Views 08/19/21 [facility]04-07-2022 Miscellaneous Notes* Telephone Encounter - Roberta Haskins - 08/04/2021 3:36 PM EDT Patient is scheduled for 09/[address] Elliott. Roberta Haskins * Telephone Encounter - Roberta Haskins - 08/01/2021 1:05 PM EDT Sent Email to Cancer [facility] to refer patient back to Dr. Cosmo Elliott Dx: Primary hypercoagulable state (HCC) Roberta Haskins documented in this encounterOhiohealth Riverside Methodist Hospital04-04-2022 Nurse Note* Ebony Redding Ma - 08/01/2021 12:48 PM EDT UA ran as ordered. Ebony Redding Ma documented in this encounterOhiohealth Riverside Methodist Hospital03-28-2020 Evaluation + Plan note Future Appointments Appointment Date:07/25/2024 02:30:00 PM Scheduled Provider: Location:[facility] Appointment Type:CV EKG (FT) Appointment Date:07/25/2024 03:00:00 PM Scheduled [facility] Type:CV Holter/Event (FT) Appointment Date:09/09/2024 08:20:00 AM Scheduled Provider:Penelope CASAS DO, FAAFP Location:[facility] Appointment Type:FM Open Future Scheduled Tests Laboratory* HgbA1c 08/05/24 * HgbA1c 11/04/24 Radiology* CT Soft Tissue Neck w/ Contrast 11/12/23 [facility] [id number] Evaluation + Plan note Future Appointments Appointment Date:07/25/2024 02:30:00 PM Scheduled Provider: [facility] Appointment Type:CV EKG () Appointment Date:07/25/2024 03:00:00 PM Scheduled Provider: [facility] Appointment Type:CV Holter/Event () Appointment Date:09/09/2024 08:20:00 AM Scheduled Provider:Penelope CASAS DO, FAAFP Location:[facility] Appointment Type:FM Open Diagnostic Tests Pending * Hepatitis B Surface Antigen 07/09/24 * HCV Antibody RFX to Quant PCR 07/09/24 * Hep Be Ag 07/09/24 * HIV Screen 4th Generation wRfx 07/09/24 Future Scheduled Tests Laboratory* HgbA1c 08/05/24 * HgbA1c 11/04/24 Radiology* CT Soft Tissue Neck w/ Contrast 11/12/23 [facility] Evaluation + Plan note Future Appointments Appointment Date:11/08/2021 12:40:00 PM Scheduled Provider:Penelope CASAS DO, FAAFP Location:[facility] Appointment Type:FM Open Future Scheduled Tests Radiology* XR Spine Lumbosacral Minimum 4 Views 08/19/21 [facility] [place] Evaluation + Plan note Future Appointments Appointment Date:11/08/2021 12:40:00 PM Scheduled Provider:Penelope CASAS DO, FAAFP Location:[facility] Appointment Type:FM Open Diagnostic Tests Pending * Urine Culture 08/19/21 Future Scheduled Tests Radiology* XR Spine Lumbosacral Minimum 4 Views [facility]19/21 [facility] App[facility]ments Appointment Date:09/21/2022 10:00:00 AM Scheduled Provider:Penelope CASAS DO, FAAFP Location:[facility] Appointment Type:FM Open [facility] Future Appointments Appointment Date:10/20/2022 09:40:00 AM Scheduled Provider:Penelope CASAS DO, FAAFP [facility]ments Appointment Date:01/26/2023 10:40:00 AM Scheduled Provider:Penelope CASAS DO, FAAFP Location:[facility] Appointment Type:[facility] Evaluation + Plan note Future Appointments Appointment Date:04/17/2023 02:20:00 PM Scheduled Provider:Penelope CASAS DO, FAAFP Location:[facility] Appointment Type: Open Future Scheduled Tests Laboratory* HgbA1c 02/15/23 * Thyroid Stimulating Hormone 02/15/23 * Thyroid Stimulating Hormone 01/11/23 [facility] evaluation + Plan note Future Appointments Appointment Date:07/24/2023 01:20:00 PM Scheduled Provider:Penelope CASAS DO, FAAFP Location:[facility] Appointment Type: Open Future Scheduled Tests Laboratory* HgbA1c 02/15/23 * Thyroid Stimulating Hormone 02[facility]15/23 [facility] Future App[facility]ments Appointment Date:07/24/2023 01:20:00 PM Scheduled Provider:Penelope CASAS DO, FAAFP Location:[facility] Appointment Type:[facility] Primary [facility] evaluation + Plan note Future Appointments Appointment Date:12/03/2023 12:40:00 PM Scheduled Provider:Penelope CASAS DO, FAAFP Location:[facility] Appointment Type: Open Future Scheduled Tests Laboratory* HgbA1c 08/03/23 [facility] evaluation + Plan note Future Appointments Appointment Date:12/03/2023 12:40:00 PM Scheduled Provider:Penelope CASAS DO, FAAFP Location:[facility] Appointment Type:FM Open Future Scheduled Tests Laboratory* Sedimentation Rate Automated 11/09/23 * HgbA1c 08/03/23 * Amylase Level 11/09/23 * Cortisol 11/09/23 * C-Reactive Protein 11/09/23 * T3 Free 11/09/23 * Thyroid Stimulating Hormone 11/09/23 * Free T4 11/09/23 * Vitamin B12 Level 11/09/23 Radiology* MRI Brain w/o Contrast 11/09/23 * MRI Orbit Face Neck w/o contrast 11/09/23 [facility] Evaluation + Plan note Future Appointments Appointment Date:01/11/2024 08:15:00 PM Scheduled Provider: Location:.SLEEP LAB_ Appointment Type:HOSE OPERATOR Sleep Study PSG () Appointment Date:01/29/2024 01:20:00 PM Scheduled Provider:Penelope CASAS DO, FAAFP Location:[facility] Appointment Type: Open Diagnostic Tests Pending * Cortisol 12/06/23 * T3 Free 12/06/23 Future Scheduled Tests Laboratory* HgbA1c 08/03/23 Radiology* CT Soft Tissue Neck w/ Contrast 11/12/23 [facility] Evaluation + Plan note Future Appointments Appointment Date:05/16/2024 11:40:00 AM Scheduled Provider:Penelope CASAS DO, FAAFP Location:[facility] Appointment Type:FM Open Future Scheduled Tests Laboratory* HgbA1c 02/05/24 * HgbA1c 05/07/24 * HgbA1c 08/05/24 * HgbA1c 11/04/24 * HgbA1c 08/03/23 * HIV Screen 4th Generation wRfx 02/05/24 * HIV Screen 4th Generation wRfx 02/05/24 * Lipid Panel 02/05/24 Radiology* CT Soft Tissue Neck w/ Contrast 11/12/23 [facility] evaluation + Plan note Future Appointments Appointment Date:05/16/2024 11:40:00 AM Scheduled Provider:Penelope CASAS DO, FAAFP Location:[facility] Appointment Type:FM Open Future Scheduled Tests Laboratory* HgbA1c 05/07/24 * HgbA1c 08/05/24 * HgbA1c 11/04/24 Radiology* CT Soft Tissue Neck w/ Contrast 11/12/23 [facility] evaluation + Plan note Future Appointments Appointment Date:05/16/2024 11:40:00 AM Scheduled Provider:Penelope CASAS DO, FAAFP Location:[facility] Appointment Type:FM Open Diagnostic Tests Pending * HIV Screen 4th Generation wRfx 02/23/24 Future Scheduled Tests Laboratory* HgbA1c 05/07/24 * HgbA1c 08/05/24 * HgbA1c 11/04/24 Radiology* CT Soft Tissue Neck w/ Contrast 11/12/23 [facility] evaluation + Plan note Future Appointments Appointment Date:05/16/2024 11:40:00 AM Scheduled Provider:Penelope CASAS DO, FAAFP Location:[facility] Appointment Type:FM Open Future Scheduled Tests Laboratory* HgbA1c 08/05/24 * HgbA1c 11/04/24 Radiology* CT Soft Tissue Neck w/ Contrast 11/12/23 [facility] evaluation + Plan note Future Appointments Appointment Date:05/16/2024 11:40:00 AM Scheduled Provider:Penelope CASAS DO, FAAFP Location:[facility] Appointment Type:FM Open Diagnostic Tests Pending * Urine Culture 03/01/24 Future Scheduled Tests Laboratory* HgbA1c 08/05/24 * HgbA1c 11/04/24 Radiology* CT Soft Tissue Neck w/ Contrast 11/12/23 [facility] evaluation + Plan note Future Appointments Appointment Date:07/07/2024 02:20:00 PM Scheduled Provider:Penelope CASAS DO, FAAFP Location:[facility] Appointment Type:FM Open Future Scheduled Tests Laboratory* HgbA1c 08/05/24 * HgbA1c 11/04/24 Radiology* CT Soft Tissue Neck w/ Contrast 11/12/23 [facility] Primary Care evaluation + Plan note Future Appointments Appointment Date:09/09/2024 08:20:00 AM Scheduled Provider:Penelope CASAS DO, FAAFP Location:[facility] Appointment Type: Open Future Scheduled Tests Laboratory* HgbA1c 08/05/24 * HgbA1c 11/04/24 Radiology* CT Soft Tissue Neck w/ Contrast 11/12/23 [facility] Primary Care Evaluation note* Diagnosis Infective urethritis- Primary Urethritis, unspecified [facility] Diagnosis Primary hypercoagulable state (HCC) Primary hypercoagulable state CVA, old, speech/language deficit Speech and language deficit, unspecified, 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 Hyposmolality and/or hyponatremia [facility] Diagnosis Primary hypercoagulable state (HCC) Primary hypercoagulable state CVA, old, speech/language deficit Speech and language deficit, unspecified, 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 Hyposmolality and/or hyponatremia documented [facility] Diagnosis Primary hypercoagulable state (HCC)- Primary Primary hypercoagulable state CVA, old, speech/language deficit Speech and language deficit, unspecified, late effect of cerebrovascular disease Antiphospholipid antibody syndrome (HCC) Primary hypercoagulable state Anemia, unspecified type [facility] Diagnosis Iron deficiency anemia secondary to blood loss (chronic) Iron deficiency anemia of Anemia of mother, complicating , childbirth, or the puerperium, unspecified as to episode of care documented [facility] 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 Iron deficiency anemia of Anemia of mother, complicating , childbirth, or the puerperium, unspecified as to episode of care [facility]* Diagnosis Primary hypercoagulable state (HCC) Primary hypercoagulable state CVA, old, speech/language deficit Speech and language deficit, unspecified, 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 Hyposmolality and/or hyponatremia documented [facility] 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 Iron deficiency anemia of Anemia of mother, complicating , childbirth, or the puerperium, unspecified as to episode of care [facility]* Diagnosis Primary hypercoagulable state (HCC) Primary hypercoagulable state CVA, old, speech/language deficit Speech and language deficit, unspecified, 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 Hyposmolality and/or hyponatremia documented [facility] Diagnosis Primary hypercoagulable state (HCC)- Primary Primary hypercoagulable state 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, old, speech/language deficit Speech and language deficit, unspecified, late effect of cerebrovascular disease documented [facility]* Diagnosis Primary hypercoagulable state (HCC) Primary hypercoagulable state CVA, old, speech/language deficit Speech and language deficit, unspecified, 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 Hyposmolality and/or hyponatremia documented in this [facility]* Diagnosis Primary hypercoagulable state (HCC)- Primary Primary hypercoagulable state Iron deficiency anemia of Anemia of mother, complicating , childbirth, or the puerperium, unspecified as to episode of care Iron deficiency anemia secondary to blood loss (chronic) Vitamin D deficiency Unspecified vitamin D deficiency documented [facility]* Diagnosis Primary hypercoagulable state (HCC)- Primary Primary hypercoagulable state Iron deficiency anemia secondary to blood loss (chronic) Vitamin D deficiency Unspecified vitamin D deficiency CVA, old, speech/language deficit Speech and language deficit, unspecified, late effect of cerebrovascular disease Antiphospholipid antibody syndrome (HCC) Primary hypercoagulable state documented [facility]* Diagnosis Primary hypercoagulable state (HCC)- Primary Primary hypercoagulable state CVA, old, speech/language deficit Speech and language deficit, unspecified, late effect of cerebrovascular disease Hypercalcemia Vitamin D deficiency Unspecified vitamin D deficiency Iron deficiency anemia secondary to blood loss (chronic) Malaise and fatigue Other malaise and fatigue documented [facility] this [facility]* Diagnosis Vitamin D deficiency- Primary Unspecified vitamin D deficiency 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) Antiphospholipid antibody syndrome (HCC) Primary hypercoagulable state Malaise and fatigue Other malaise and fatigue [facility] Diagnosis Vitamin D deficiency- Primary Unspecified vitamin D deficiency 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) documented [facility]* 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 documented in [facility]* Diagnosis Iron deficiency anemia of - Primary Anemia of mother, complicating , childbirth, or the puerperium, unspecified as to episode of care Iron deficiency anemia secondary to blood loss (chronic) documented [facility]* Diagnosis Iron deficiency anemia of - Primary Anemia of mother, complicating , childbirth, or the puerperium, unspecified as to episode of care Iron deficiency anemia secondary to blood loss (chronic) documented [facility]* 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 Vitamin D deficiency Unspecified vitamin D deficiency Malaise and fatigue Other malaise and fatigue documented in this [facility]* Diagnosis Primary hypercoagulable state (HCC) Primary hypercoagulable state CVA, old, speech/language deficit Speech and language deficit, unspecified, 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 Hyposmolality and/or hyponatremia documented in this [facility]* Diagnosis Missed menses , unspecified gestational age Encounter for supervision of normal first in first trimester Hypothyroidism (acquired) ([facility]/HCC) Unspecified hypothyroidism Low vitamin D level [facility] Diagnosis 14 weeks gestation of Second trimester state, incidental Confirm viability with history of miscarriage, ultrasound Encounter for routine screening for malformation using ultrasonics documented in this [facility] noteNo assessment information availableOhio[facility] Work Phone: Evaluation note* Diagnosis Primary hypercoagulable state (HCC)- Primary Primary hypercoagulable state CVA, old, speech/language deficit Speech and language deficit, unspecified, 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) Vitamin D deficiency Unspecified vitamin D deficiency Antiphospholipid antibody syndrome (HCC) Primary hypercoagulable state [facility]* Diagnosis Follow-up visit after miscarriage Abnormal TSH History of thyroid disease documented in this encounter [facility]* Diagnosis Vaginal bleeding Other specified noninflammatory disorder of vagina Dizziness Dizziness and giddiness Abnormal TSH Vaginal discharge Leukorrhea, not specified as infective Pelvic pain in female Unspecified symptom associated with female genital organs documented in this encounter [facility]* Diagnosis Irregular menstrual cycle documented in this encounter [facility]* Diagnosis Primary hypercoagulable state (HCC) Primary hypercoagulable state CVA, old, speech/language deficit Speech and language deficit, unspecified, 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 Hyposmolality and/or hyponatremia documented in this [facility]* Diagnosis Antiphospholipid antibody positive- Primary Other and unspecified nonspecific immunological findings Iron deficiency anemia secondary to blood loss (chronic) Malaise and fatigue Other malaise and fatigue Vitamin D deficiency Unspecified vitamin D deficiency [facility]* Diagnosis Amenorrhea Absence of menstruation Missed menses , unspecified gestational age Encounter for supervision of normal first in first trimester Thyroid disease ([facility]/HCC) Unspecified disorder of thyroid documented in this encounter [facility]* Diagnosis Gestational diabetes mellitus (GDM), antepartum, gestational diabetes method of control unspecified- Primary [facility]* Diagnosis Primary hypercoagulable state (HCC) Primary hypercoagulable state CVA, old, speech/language deficit Speech and language deficit, unspecified, 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 Hyposmolality and/or hyponatremia documented [facility]* Diagnosis Primary hypercoagulable state (HCC)- Primary Primary hypercoagulable state CVA, old, speech/language deficit Speech and language deficit, unspecified, 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 Hyposmolality and/or hyponatremia Personal history of TIA (transient ischemic attack) Transient ischemic attack (TIA), and cerebral infarction without residual deficits [facility]* Diagnosis Second trimester (HHS-HCC) state, incidental 13 weeks gestation of (HHS-HCC) Thyroid disease Unspecified disorder of thyroid Multigravida of advanced maternal age in second trimester (HHS-HCC) Gestational diabetes mellitus (GDM), antepartum, gestational diabetes method of control unspecified(HHS-HCC) Elevated glucose tolerance test Impaired glucose tolerance test documented in this encounter [facility] HealthcareEvaluation note* Diagnosis Gestational diabetes mellitus (GDM), antepartum, gestational diabetes method of control unspecified- Primary [facility] Diagnosis Second trimester (HHS-HCC) state, incidental 16 weeks gestation of ([facility]-HCC) Screening, , for anatomic survey ([facility]) Encounter for anatomic survey Vaginal discharge Leukorrhea, not specified as infective Sinus headache Headache documented in this encounter [facility] note* Diagnosis Insulin controlled gestational diabetes mellitus (GDM) in second trimester- Primary [facility] in [facility] encounter [facility]* Diagnosis 19 weeks gestation of ([facility]-HCC) Second trimester ([facility]) state, incidental Thyroid disease Unspecified disorder of thyroid Multigravida of advanced maternal age in second trimester ([facility]) Gestational diabetes mellitus (GDM), antepartum, gestational diabetes method of control unspecified([facility]) documented in this encounter [facility] note* Diagnosis Gestational diabetes mellitus (GDM) in second trimester controlled on oral hypoglycemic drug- Primary documented in this encounter [facility]* Diagnosis Antiphospholipid antibody positive- Primary Other and unspecified nonspecific immunological findings Iron deficiency anemia secondary to blood loss (chronic) Vitamin D deficiency Unspecified vitamin D deficiency Primary hypercoagulable state (HCC) Primary hypercoagulable state [facility] Diagnosis Gestational diabetes mellitus (GDM) in second trimester controlled on oral hypoglycemic drug- Primary documented in this encounter [facility]* Diagnosis Multigravida of advanced maternal age in second trimester- Primary Antiphospholipid syndrome complicating , antepartum Gestational diabetes mellitus (GDM) in second trimester controlled on oral hypoglycemic drug Insulin controlled gestational diabetes mellitus (GDM) in second trimester AMA (advanced maternal age) multigravida 35+, second trimester Hypothyroidism, unspecified type documented in this encounter [facility]* Diagnosis 22 weeks gestation of [...] Hyposmolality and/or hyponatremia [facility] Diagnosis Multigravida of advanced maternal [...] Hyposmolality and/or hyponatremia [facility]* Diagnosis Second trimester ([facility]-HCC) state, incidental 23 weeks gestation of ([facility]) Thyroid disease Unspecified disorder of thyroid Gestational diabetes mellitus (GDM), antepartum, gestational diabetes method of control unspecified([facility]) Multigravida of advanced maternal age in second trimester ([facility]) H/O loss Lightheaded Dizziness and giddiness Dizziness Dizziness and giddiness documented in this encounter [facility]* Diagnosis Antiphospholipid syndrome- Primary Primary hypercoagulable state documented [facility]* Diagnosis Gestational diabetes mellitus (GDM) in second trimester controlled on oral hypoglycemic drug- Primary Antiphospholipid syndrome Primary hypercoagulable state Other specified hypothyroidism Antiphospholipid syndrome complicating , antepartum [facility]* Diagnosis Second trimester (HHS-HCC) state, incidental 25 weeks gestation of ([facility]) Gestational diabetes mellitus (GDM), antepartum, gestational diabetes method of control unspecified([facility]) Anticoagulant long-term use Encounter for long-term (current) use of anticoagulants Antiphospholipid antibody positive Other and unspecified nonspecific immunological findings Antiphospholipid antibody syndrome ([facility]) Primary hypercoagulable state documented in [facility]* Diagnosis 27 weeks gestation of [...] unspecified (HHS-HCC) documented [facility] encounter [facility]* Diagnosis Antiphospholipid syndrome- Primary Primary hypercoagulable state Antiphospholipid syndrome complicating , antepartum History of CVA (cerebrovascular accident) Transient ischemic attack (TIA), and cerebral infarction without residual deficits Coordination of complex care 29 weeks gestation of documented [facility] Narrative No data available for this section [facility] Discharge instructions No data available for this section [facility] WestInstructionsNot on filedocumented in this encounter [facility] [...] be sent through Care Everywhere. * Preeclampsia ([place] African) documented in this encounter[facility] SystemInstructionsNot on file documented in this encounterProMedica Health SystemInstructionsNot on file documented in this encounterPro[facility] Health SystemInstructionsNot on file documented in this encounterProMedica Health SystemInstructionsNot on file documented in this encounterProMedica Health SystemInstructions* Attachments The following attachments cannot be sent through Care Everywhere. * Preeclampsia ([place] African) documented in this encounterPro[facility] SystemInstructionsNot on file documented in this encounterProMedica Health SystemInstructionsNot on file documented in this encounterProSt. [facility] SystemProgress note No data available for this section [facility] WestReason for referral (narrative) , pt reported hx of nasal polyps and deviated septum but never had surgery done Referred by: Shirlene YEBOAH, Lourdes Baltazar [facility] Primary Care Reason for visit Narrative* Consultation (Urgent) - Pending ReviewSpecialtyDiagnoses / ProceduresReferred By ContactReferred To ContactRheumatology Diagnoses 22 weeks gestation of Antiphospholipid syndrome complicating , antepartum Mukul Noyola MD [address] [facility], [address] [place] [id number] Phone: tel: fax: Sam Callahan MD [facility] [address] [address] Phone: tel: fax: Referral IDStatusReasonStart DateExpiration DateVisits RequestedVisits [id number] Review Specialty Services Required [facility] Summary Purpose Family History No Family History [...] Advanced Directives Records Found Medications Administered Section Medication OrderMAR ActionAction DateDoseRateSite iron sucrose 300 mg in NaCl 0.9% 250 mL (VENOFER) 300 mg, INTRAVENOUS, at 166.67 mL/hr, Administer over 90 Minutes, ONCE, 1 dose, On Sun04/05/22 at 1400, Please conduct a 30 minute post dose observation. Rate/Dose Npelca8704/05/2022 2:44 PM SUR808.67 mL/zeDaoupoipv89/07/2022 2:25 PM UCD386 mL/hrNew Bag/Syringe/Facpke7404/05/2022 1:52 PM GOJ898 mg166.67 mL/hr Medication OrderMAR ActionAction DateDoseRateSite iron sucrose 300 mg in NaCl 0.9% 250 mL (VENOFER) 300 mg, INTRAVENOUS, at 166.67 mL/hr, Administer over 90 Minutes, ONCE, 1 dose, On Christie 04/20/22 at 1400, Please conduct a 30 minute post dose observation. New Bag/Syringe/Ckbxia1504/20/2022 2:01 PM RSU672 mg166.67 mL/hr Additional Source Comments INFORMATION SOURCE (unrecogn ized section and content) DATE CREATED AUTHOR 10/22/2017 [facility] DATE CREATED AUTHOR AUTHOR'S ORGANIZ ATION 11/14/2017 [employer] DATE CREATED AUTHOR AUTHOR'S ORGANIZ ATION 06/18/2018 [facility] DATE CREATED AUTHOR AUTHOR'S ORGANIZ ATION 12/30/2021 [facility] DATE CREATED AUTHOR AUTHOR'S ORGANIZ ATION 06/09/2022 [facility] DATE CREATED AUTHOR AUTHOR'S ORGANIZ ATION 09/29/2023 [facility] DATE CREATED AUTHOR AUTHOR'S ORGANIZ ATION 12/03/2023 [facility] DATE CREATED AUTHOR AUTHOR'S ORGANIZ ATION 12/09/2023 [facility] DATE CREATED AUTHOR AUTHOR'S ORGANIZ ATION 12/10/2023 [facility] DATE CREATED AUTHOR AUTHOR'S ORGANIZ ATION 01/27/2024 [facility] DATE CREATED AUTHOR AUTHOR'S ORGANIZ ATION 02/24/2024 [facility] DATE CREATED AUTHOR AUTHOR'S ORGANIZ ATION 02/26/2024 [facility] DATE CREATED AUTHOR AUTHOR'S ORGANIZ ATION 02/28/2024 [facility] DATE CREATED AUTHOR AUTHOR'S ORGANIZ ATION 03/02/2024 [facility] DATE CREATED AUTHOR AUTHOR'S ORGANIZ ATION 03/03/2024 [facility] DATE CREATED AUTHOR AUTHOR'S ORGANIZ ATION 05/15/2024 [facility] DATE CREATED AUTHOR AUTHOR'S ORGANIZ ATION 05/17/2024 [facility] DATE CREATED AUTHOR AUTHOR'S ORGANIZ ATION 05/18/2024 [facility] DATE CREATED AUTHOR AUTHOR'S ORGANIZ ATION 05/19/2024 [facility] DATE CREATED AUTHOR AUTHOR'S ORGANIZ ATION 06/11/2024 [facility] DATE CREATED AUTHOR AUTHOR'S ORGANIZ ATION 06/17/2024 [facility] DATE CREATED AUTHOR AUTHOR'S ORGANIZ ATION 07/09/2024 [facility] DATE CREATED AUTHOR AUTHOR'S ORGANIZ ATION 07/12/2024 [facility] DATE CREATED AUTHOR AUTHOR'S ORGANIZ ATION 07/15/2024 [facility] DATE CREATED AUTHOR AUTHOR'S ORGANIZ ATION 08/24/2024 [facility] DATE CREATED AUTHOR AUTHOR'S ORGANIZ ATION 08/26/2024 [facility] DATE CREATED AUTHOR AUTHOR'S ORGANIZ ATION 09/01/2024 [facility] DATE CREATED AUTHOR AUTHOR'S ORGANIZ ATION 09/08/2024 [facility] DATE CREATED AUTHOR AUTHOR'S ORGANIZ ATION 09/11/2024 [facility] DATE CREATED AUTHOR AUTHOR'S ORGANIZ ATION 12/09/2024 [facility] DATE CREATED AUTHOR AUTHOR'S ORGANIZ ATION 01/18/2025 [facility] DATE CREATED AUTHOR AUTHOR'S ORGANIZ ATION 02/07/2025 [facility] DATE CREATED AUTHOR AUTHOR'S ORGANIZ ATION 02/07/2025 [facility] DATE CREATED AUTHOR AUTHOR'S ORGANIZ ATION 02/10/2025 [facility] DATE CREATED AUTHOR AUTHOR'S ORGANIZ ATION 02/13/2025 [facility] DATE CREATED AUTHOR AUTHOR'S ORGANIZ ATION 02/17/2025 [facility] Source Comments (unrecognize d section and content) In the event this informatio n is protected by the Federal Confidentiality of Alcohol and Drug Abuse Patient Records regulations: The Federal rules restrict any use of the information to criminally investigate or prosecute any alcohol or drug abuse patient.[facility] HospitalIn the event this information is protected by the Federal Confidentiality of Alcohol and Drug Abuse Patient Records regulations: The Federal rules restrict any use of the information to criminally investigate or prosecute any alcohol or drug abuse patient.[facility] HospitalIn the event this information is protected by the Federal Confidentiality of Alcohol and Drug Abuse Patient Records regulations: The Federal rules restrict any use of the information to criminally investigate or prosecute any alcohol or drug abuse patient.[facility] HospitalIn the event this information is protected by the Federal Confidentiality of Alcohol and Drug Abuse Patient Records regulations: The Federal rules restrict any use of the information to criminally investigate or prosecute any alcohol or drug abuse patient.[facility] HospitalIn the event this information is protected by the Federal Confidentiality of Alcohol and Drug Abuse Patient Records regulations: The Federal rules restrict any use of the information to criminally investigate or prosecute any alcohol or drug abuse patient.[facility] HospitalIn the event this information is protected by the Federal Confidentiality of Alcohol and Drug Abuse Patient Records regulations: The Federal rules restrict any use of the information to criminally investigate or prosecute any alcohol or drug abuse patient.[facility] HospitalIn the event this information is protected by the Federal Confidentiality of Alcohol and Drug Abuse Patient Records regulations: The Federal rules restrict any use of the information to criminally investigate or prosecute any alcohol or drug abuse patient.[facility] ClinicIn the event this information is protected by the Federal Confidentiality of Alcohol and Drug Abuse Patient Records regulations: The Federal rules restrict any use of the information to criminally investigate or prosecute any alcohol or drug abuse patient.[facility] HospitalIn the event this information is protected by the Federal Confidentiality of Alcohol and Drug Abuse Patient Records regulations: The Federal rules restrict any use of the information to criminally investigate or prosecute any alcohol or drug abuse patient.[facility] HospitalIn the event this information is protected by the Federal Confidentiality of Alcohol and Drug Abuse Patient Records regulations: The Federal rules restrict any use of the information to criminally investigate or prosecute any alcohol or drug abuse patient.[facility] HospitalIn the event this information is protected by the Federal Confidentiality of Alcohol and Drug Abuse Patient Records regulations: The Federal rules restrict any use of the information to criminally investigate or prosecute any alcohol or drug abuse patient.[facility] HospitalIn the event this information is protected by the Federal Confidentiality of Alcohol and Drug Abuse Patient Records regulations: The Federal rules restrict any use of the information to criminally investigate or prosecute any alcohol or drug abuse patient.[facility] HospitalIn the event this information is protected by the Federal Confidentiality of Alcohol and Drug Abuse Patient Records regulations: The Federal rules restrict any use of the information to criminally investigate or prosecute any alcohol or drug abuse patient.[facility] HospitalIn the event this information is protected by the Federal Confidentiality of Alcohol and Drug Abuse Patient Records regulations: The Federal rules restrict any use of the information to criminally investigate or prosecute any alcohol or drug abuse patient.[facility] HospitalIn the event this information is protected by the Federal Confidentiality of Alcohol and Drug Abuse Patient Records regulations: The Federal rules restrict any use of the information to criminally investigate or prosecute any alcohol or drug abuse patient.[facility] HospitalIn the event this information is protected by the Federal Confidentiality of Alcohol and Drug Abuse Patient Records regulations: The Federal rules restrict any use of the information to criminally investigate or prosecute any alcohol or drug abuse patient.[facility] HospitalIn the event this information is protected by the Federal Confidentiality of Alcohol and Drug Abuse Patient Records regulations: The Federal rules restrict any use of the information to criminally investigate or prosecute any alcohol or drug abuse patient.[facility] HospitalIn the event this information is protected by the Federal Confidentiality of Alcohol and Drug Abuse Patient Records regulations: The Federal rules restrict any use of the information to criminally investigate or prosecute any alcohol or drug abuse patient.[facility] HospitalIn the event this information is protected by the Federal Confidentiality of Alcohol and Drug Abuse Patient Records regulations: The Federal rules restrict any use of the information to criminally investigate or prosecute any alcohol or drug abuse patient.[facility] HospitalIn the event this information is protected by the Federal Confidentiality of Alcohol and Drug Abuse Patient Records regulations: The Federal rules restrict any use of the information to criminally investigate or prosecute any alcohol or drug abuse patient.[facility] HospitalIn the event this information is protected by the Federal Confidentiality of Alcohol and Drug Abuse Patient Records regulations: The Federal rules restrict any use of the information to criminally investigate or prosecute any alcohol or drug abuse patient.[facility] HospitalIn the event this information is protected by the Federal Confidentiality of Alcohol and Drug Abuse Patient Records regulations: The Federal rules restrict any use of the information to criminally investigate or prosecute any alcohol or drug abuse patient.[facility] HospitalIn the event this information is protected by the Federal Confidentiality of Alcohol and Drug Abuse Patient Records regulations: The Federal rules restrict any use of the information to criminally investigate or prosecute any alcohol or drug abuse patient.[facility] HospitalIn the event this information is protected by the Federal Confidentiality of Alcohol and Drug Abuse Patient Records regulations: The Federal rules restrict any use of the information to criminally investigate or prosecute any alcohol or drug abuse patient.[facility] HospitalIn the event this information is protected by the Federal Confidentiality of Alcohol and Drug Abuse Patient Records regulations: The Federal rules restrict any use of the information to criminally investigate or prosecute any alcohol or drug abuse patient.[facility] HospitalIn the event this information is protected by the Federal Confidentiality of Alcohol and Drug Abuse Patient Records regulations: The Federal rules restrict any use of the information to criminally investigate or prosecute any alcohol or drug abuse patient.[facility] HospitalIn the event this information is protected by the Federal Confidentiality of Alcohol and Drug Abuse Patient Records regulations: The Federal rules restrict any use of the information to criminally investigate or prosecute any alcohol or drug abuse patient.[facility] HospitalIn the event this information is protected by the Federal Confidentiality of Alcohol and Drug Abuse Patient Records regulations: The Federal rules restrict any use of the information to criminally investigate or prosecute any alcohol or drug abuse patient.[facility] HospitalIn the event this information is protected by the Federal Confidentiality of Alcohol and Drug Abuse Patient Records regulations: The Federal rules restrict any use of the information to criminally investigate or prosecute any alcohol or drug abuse patient.[facility] HospitalIn the event this information is protected by the Federal Confidentiality of Alcohol and Drug Abuse Patient Records regulations: The Federal rules restrict any use of the information to criminally investigate or prosecute any alcohol or drug abuse patient.[facility] HospitalIn the event this information is protected by the Federal Confidentiality of Alcohol and Drug Abuse Patient Records regulations: The Federal rules restrict any use of the information to criminally investigate or prosecute any alcohol or drug abuse patient.[facility] HospitalIn the event this information is protected by the Federal Confidentiality of Alcohol and Drug Abuse Patient Records regulations: The Federal rules restrict any use of the information to criminally investigate or prosecute any alcohol or drug abuse patient.[facility] HospitalIn the event this information is protected by the Federal Confidentiality of Alcohol and Drug Abuse Patient Records regulations: The Federal rules restrict any use of the information to criminally investigate or prosecute any alcohol or drug abuse patient.[facility] HospitalIn the event this information is protected by the Federal Confidentiality of Alcohol and Drug Abuse Patient Records regulations: The Federal rules restrict any use of the information to criminally investigate or prosecute any alcohol or drug abuse patient.[facility] HospitalIn the event this information is protected by the Federal Confidentiality of Alcohol and Drug Abuse Patient Records regulations: The Federal rules restrict any use of the information to criminally investigate or prosecute any alcohol or drug abuse patient.[facility] HospitalIn the event this information is protected by the Federal Confidentiality of Alcohol and Drug Abuse Patient Records regulations: The Federal rules restrict any use of the information to criminally investigate or prosecute any alcohol or drug abuse patient.[facility] HospitalIn the event this information is protected by the Federal Confidentiality of Alcohol and Drug Abuse Patient Records regulations: The Federal rules restrict any use of the information to criminally investigate or prosecute any alcohol or drug abuse patient.[facility] HospitalIn the event this information is protected by the Federal Confidentiality of Alcohol and Drug Abuse Patient Records regulations: The Federal rules restrict any use of the information to criminally investigate or prosecute any alcohol or drug abuse patient.[facility] HospitalIn the event this information is protected by the Federal Confidentiality of Alcohol and Drug Abuse Patient Records regulations: The Federal rules restrict any use of the information to criminally investigate or prosecute any alcohol or drug abuse patient.[facility] HospitalIn the event this information is protected by the Federal Confidentiality of Alcohol and Drug Abuse Patient Records regulations: The Federal rules restrict any use of the information to criminally investigate or prosecute any alcohol or drug abuse patient.[facility] HospitalIn the event this information is protected by the Federal Confidentiality of Alcohol and Drug Abuse Patient Records regulations: The Federal rules restrict any use of the information to criminally investigate or prosecute any alcohol or drug abuse patient.[facility] HospitalIn the event this information is protected by the Federal Confidentiality of Alcohol and Drug Abuse Patient Records regulations: The Federal rules restrict any use of the information to criminally investigate or prosecute any alcohol or drug abuse patient.[facility] HospitalIn the event this information is protected by the Federal Confidentiality of Alcohol and Drug Abuse Patient Records regulations: The Federal rules restrict any use of the information to criminally investigate or prosecute any alcohol or drug abuse patient.[facility] HospitalIn the event this information is protected by the Federal Confidentiality of Alcohol and Drug Abuse Patient Records regulations: The Federal rules restrict any use of the information to criminally investigate or prosecute any alcohol or drug abuse patient.[facility] HospitalIn the event this information is protected by the Federal Confidentiality of Alcohol and Drug Abuse Patient Records regulations: The Federal rules restrict any use of the information to criminally investigate or prosecute any alcohol or drug abuse patient.[facility] HospitalIn the event this information is protected by the Federal Confidentiality of Alcohol and Drug Abuse Patient Records regulations: The Federal rules restrict any use of the information to criminally investigate or prosecute any alcohol or drug abuse patient.[facility] HospitalIn the event this information is protected by the Federal Confidentiality of Alcohol and Drug Abuse Patient Records regulations: The Federal rules restrict any use of the information to criminally investigate or prosecute any alcohol or drug abuse patient.[facility] HospitalIn the event this information is protected by the Federal Confidentiality of Alcohol and Drug Abuse Patient Records regulations: The Federal rules restrict any use of the information to criminally investigate or prosecute any alcohol or drug abuse patient.[facility] HospitalIn the event this information is protected by the Federal Confidentiality of Alcohol and Drug Abuse Patient Records regulations: The Federal rules restrict any use of the information to criminally investigate or prosecute any alcohol or drug abuse patient.[facility] HospitalIn the event this information is protected by the Federal Confidentiality of Alcohol and Drug Abuse Patient Records regulations: The Federal rules restrict any use of the information to criminally investigate or prosecute any alcohol or drug abuse patient.[facility] HospitalIn the event this information is protected by the Federal Confidentiality of Alcohol and Drug Abuse Patient Records regulations: The Federal rules restrict any use of the information to criminally investigate or prosecute any alcohol or drug abuse patient.[facility] HospitalIn the event this information is protected by the Federal Confidentiality of Alcohol and Drug Abuse Patient Records regulations: The Federal rules restrict any use of the information to criminally investigate or prosecute any alcohol or drug abuse patient.[facility] HospitalIn the event this information is protected by the Federal Confidentiality of Alcohol and Drug Abuse Patient Records regulations: The Federal rules restrict any use of the information to criminally investigate or prosecute any alcohol or drug abuse patient.[facility] HospitalIn the event this information is protected by the Federal Confidentiality of Alcohol and Drug Abuse Patient Records regulations: The Federal rules restrict any use of the information to criminally investigate or prosecute any alcohol or drug abuse patient.[facility] HospitalIn the event this information is protected by the Federal Confidentiality of Alcohol and Drug Abuse Patient Records regulations: The Federal rules restrict any use of the information to criminally investigate or prosecute any alcohol or drug abuse patient.[facility] Care Teams (unrecognized sec tion and content) Team MemberRelationshipSpecialtyStart DateEnd Date Humaira Gaviria MD [address] [place] [address] PCP - GeneralInternal Medicine07/05/18 Jonny Wilcox MD [address] [place] [address] Primary Staff PhysicianCardiology07/16/18Team MemberRelationshipSpecialtyStart DateEnd Date Humaira Gaviria MD [address] [place] [address] PCP - GeneralInternal Medicine07/05/18 Jonny Wilcox MD [address] [place] [address] Primary Staff PhysicianCardiology07/16/18Team MemberRelationshipSpecialtyStart DateEnd Date Humaira Gaviria MD [address] [place] [address] PCP - GeneralInternal Medicine07/05/18 Jonny Wilcox MD [address] [place] [address] Primary Staff PhysicianCardiology07/16/18Team MemberRelationshipSpecialtyStart DateEnd Date Humaira Gaviria MD [address] [place] [address] PCP - GeneralInternal Medicine07/05/18 Jonny Wilcox MD [address] [place] [address] Primary Staff PhysicianCardiology07/16/18Team MemberRelationshipSpecialtyStart DateEnd Date Humaira Gaviria MD [address] [place] [address] PCP - GeneralInternal Medicine07/05/18 Jonny Wilcox MD [address] [place] [address] Primary Staff PhysicianCardiology07/16/18 [place] [address] [place] [address] PhysicianHematology/Oncology09/14/21 Davida Restrepo, RN [address] [place] [address] Specialty Care CoordinatorHematology/Oncology09/14/21Team MemberRelationship SpecialtyStart DateEnd Date [place] [address] PCP - GeneralFamily Medicine10/04/20Team MemberRelationshipSpecialtyStart DateEnd Date Humaira Gaviria MD [address] [place] [address] PCP - GeneralInternal Medicine07/05/18 Jonny Wilcox MD [address] [place] [address] Primary Staff PhysicianCardiology07/16/18 [place] [address] [place] [address] PhysicianHematology/Oncology09/14/21 Davida Restrepo, RN [address] [place] [address] Specialty Care CoordinatorHematology/Oncology09/14/21Team MemberRelationship SpecialtyStart DateEnd Date Penelope Casas DO [address] [place] [address] PCP - GeneralFamily Ysaphqoh77/3/22 Jonny Wilcox MD [address] [place] [address] Primary Staff PhysicianCardiology07/16/18 [place] [address] [place] [address] PhysicianHematology/Oncology09/14/21 Davida Restrepo, RN [address] [place] [address] Specialty Care CoordinatorHematology/Oncology09/14/21Team MemberRelationship SpecialtyStart DateEnd Date Penelope Casas DO [address] [place] [address] PCP - GeneralFamily Gqnahwqs39/3/22 Jonny Wilcox MD [address] [place] [address] Primary Staff PhysicianCardiology07/16/18 [place] [address] [place] [address] PhysicianHematology/Oncology09/14/21 Davida Restrepo, RN [address] [place] [address] Specialty Care CoordinatorHematology/Oncology09/14/21Te MemberRelationship SpecialtyStart DateEnd Date Penelope Casas, [address] [place] [address] [facility] Qyndrvgm63/3/22 Jonny Wilcox MD [address] [place] [address] Primary Staff PhysicianCardiology07/16/18 [place] [address] [place] [address] PhysicianHematology/Oncology09/14/21 Davida Restrepo, RN [address] [place] [address] Specialty Care CoordinatorHematology/Oncology09/14/21Te MemberRelationship SpecialtyStart DateEnd Date Penelope Casas, DO [address] [place] [address] PCP - Generalmily Kdhiaecr00/3/22 Jonny Wilcox MD [address] [place] [address] Primary Staff PhysicianCardiology07/16/18 [place] [address] [place] [address] PhysicianHematology/Oncology09/14/21 Davida Restrepo, RN [address] [place] [address] Specialty Care CoordinatorHematology/Oncology09/14/21Team MemberRelationship SpecialtyStart DateEnd Date Penelope Casas, DO [address] [place] [address] PCP - [facility] Hpbyrjnh76/3/22 Jonny Wilcox MD [address] [place] [address] Primary Staff PhysicianCardiology07/16/18 [place] [address] [place] [address] PhysicianHematology/Oncology09/14/21 Davida Restrepo, [address] [place] [address] Specialty Care CoordinatorHematology/Oncology09/14/21Te MemberRelationship SpecialtyStart DateEnd Date Penelope Casas, [address] [place] [address] PCP - [facility] Zypqgtfw16/3/22 Jonny Wilcox MD [address] [place] [address] Primary Staff PhysicianCardiology07/16/18 [place] [address] [place] [address] PhysicianHematology/Oncology09/14/21 Davida Restrepo, RN [address] [place] [address] Specialty Care CoordinatorHematology/Oncology09/14/21Te MemberRelationship SpecialtyStart DateEnd Date Penelope Casas, DO [address] [place] [address] PCP - GeneralFamily Utkoyxmj83/3/22 Jonny Wilcox MD [address] [place] [address] Primary Staff PhysicianCardiology07/16/18 [place] [address] [place] [address] PhysicianHematology/Oncology09/14/21 Davida Restrepo, RN [address] [place] [address] Specialty Care CoordinatorHematology/Oncology09/14/21Team MemberRelationship SpecialtyStart DateEnd Date Penelope Casas, DO [address] [facility] [place] [address] [facility] Fjbqzjzp90/3/22 Jonny Wilcox MD [address] [place] [address] Primary Staff PhysicianCardiology07/16/18 [place] [address] [place] [address] PhysicianHematology/Oncology09/14/21 Davida Restrepo, RN [address] [place] [address] Specialty Care CoordinatorHematology/Oncology09/14/21Team MemberRelationship SpecialtyStart DateEnd Date Penelope Casas, DO [address] [facility] [place] [address] PCP - Generalmily Lnggoyny47/3/22 Jonny Wilcox MD [address] [place] [address] Primary Staff PhysicianCardiology07/16/18 [place] [address] [place] [address] PhysicianHematology/Oncology09/14/21 Davida Restrepo, RN [address] [place] [address] Specialty Care CoordinatorHematology/Oncology09/14/21Team MemberRelationship SpecialtyStart DateEnd Date Penelope Casas DO [address] [facility] [place] [address] PCP - [facility] [id number]/3/22 Jonny Wilcox MD [address] [place] [address] Primary Staff PhysicianCardiology07/16/18 [place] [address] [place] [address] PhysicianHematology/Oncology09/14/21 Davida Restrepo, RN [address] [place] [address] Specialty Care CoordinatorHematology/Oncology09/14/21Te MemberRelationship SpecialtyStart DateEnd Date Penelope Casas DO [address] [facility] [place] [address] PCP - Generalmily Fdhpddwb50/3/22 Jonny Wilcox MD [address] [place] [address] Primary Staff PhysicianCardiology07/16/18 [place] [address] [place] [address] PhysicianHematology/Oncology09/14/21 Davida Restrepo RN [address] [facility] [place] [address] Specialty Care CoordinatorHematology/Oncology09/14/21Team MemberRelationship SpecialtyStart DateEnd Date Penelope Casas DO [address] [place] [address] PCP - GeneralFamily Mresbmjf04/3/22 Jonny Wilcox MD [address] [facility] [place] [address] Primary Staff PhysicianCardiology07/16/18 [place] [address] [place] [address] PhysicianHematology/Oncology09/14/21 Davida Restrepo RN [address] [facility] [place] [address] Specialty Care CoordinatorHematology/Oncology09/14/21Team MemberRelationship SpecialtyStart DateEnd Date Penelope Casas DO [address] [place] [address] PCP - GeneralFamily Hmijbhdp45/3/22 Jonny Wilcox MD [address] [place] [address] Primary Staff PhysicianCardiology07/16/18 [place] [address] [place] [address] PhysicianHematology/Oncology09/14/21 Davida Restrepo RN [address] [facility] [place], [place] [address] Specialty Care CoordinatorHematology/Oncology09/14/21Team MemberRelationship SpecialtyStart DateEnd Date Penelope Casas DO [address] [place] [address] PCP - Generalmily Fmjjhxbk33/3/22 Jonny Wilcox MD [address] [place] [address] Primary Staff PhysicianCardiology07/16/18 [place] [address] [place] [address] PhysicianHematology/Oncology09/14/21 Davida Restrepo RN [address] [place] [address] Specialty Care CoordinatorHematology/Oncology09/14/21Te MemberRelationship SpecialtyStart DateEnd Date Penelope Casas DO [address] [facility] [place] [address] PCP - Generalmily Qegmfpzn58/3/22 Jonny Wilcox MD [address] [facility] [place] [address] Primary Staff PhysicianCardiology07/16/18 [place] [address] [place] [address] PhysicianHematology/Oncology09/14/21 Davida Restrepo RN [address] [place] [address] Specialty Care CoordinatorHematology/Oncology09/14/21Team MemberRelationship SpecialtyStart DateEnd Date Penelope Casas DO [address] [place] [address] PCP - GeneralFamily Jozbuhwh28/3/22 Jonny Wilcox MD [address] [place] [address] Primary Staff PhysicianCardiology07/16/18 [place] [address] [place] [address] PhysicianHematology/Oncology09/14/21 Davida Restrepo RN [address] [place] [address] Specialty Care CoordinatorHematology/Oncology09/14/21Team MemberRelationship SpecialtyStart DateEnd Date Penelope Casas DO [address] [facility] [place] [address] PCP - [facility] Qmdsbxqp93/3/22 Jonny Wilcox MD [address] [place] [address] Primary Staff PhysicianCardiology07/16/18 [place] [address] [place] [address] PhysicianHematology/Oncology09/14/21 Davida Restrepo RN [address] [place], [place] [address] Specialty Care CoordinatorHematology/Oncology09/14/21Team MemberRelationship SpecialtyStart DateEnd Date Penelope Casas DO [address] [place] [address] PCP - Generalmily Nxgqijav86/3/22 Jonny Wilcox MD [address] [place] [address] Primary Staff PhysicianCardiology07/16/18 [place] [address] [place] [address] PhysicianHematology/Oncology09/14/21 Davida Restrepo, RN [address] [place] [address] Specialty Care CoordinatorHematology/Oncology09/14/21Te MemberRelationship SpecialtyStart DateEnd Date Penelope Casas DO [address] [facility] [place] [address] PCP - GeneralFamily Xsqofwpm96/3/22 Jonny Wilcox MD [address] [place] [address] Primary Staff PhysicianCardiology07/16/18 [place] [address] [place] [address] PhysicianHematology/Oncology09/14/21 Davida Restrepo, RN [address] [place], [place] [id number] Specialty Care CoordinatorHematology/Oncology09/14/21Te MemberRelationship SpecialtyStart DateEnd Date Penelope Casas DO [address] [facility] [place] [address] PCP - GeneralFamily Qsaqqdur65/3/22 Jonny Wilcox MD [address] [place] [address] Primary Staff PhysicianCardiology07/16/18 [place] [address] [place] [address] PhysicianHematology/Oncology09/14/21 Davida Restrepo, RN [address] [place] [address] Specialty Care CoordinatorHematology/Oncology09/14/21Team MemberRelationship SpecialtyStart DateEnd Date Penelope Casas DO [address] [place] [address] PCP - GeneralFamily Opvqbfsf38/3/22 Jonny Wilcox MD [address] [place] [address] Primary Staff PhysicianCardiology07/16/18 [place] [address] [place] [address] PhysicianHematology/Oncology09/14/21 Davida Restrepo RN [address] [place] [address] Specialty Care CoordinatorHematology/Oncology09/14/21Team MemberRelationship SpecialtyStart DateEnd Date Penelope Casas DO [address] [facility] [place] [address] PCP - GeneralFamily Vtjkpvsf33/3/22 Jonny Wilcox MD [address] [place] [address] Primary Staff PhysicianCardiology07/16/18 [place] [address] [place] [address] PhysicianHematology/Oncology09/14/21 Davida Restrepo RN [address] [place] [address] Specialty Care CoordinatorHematology/Oncology09/14/21Team MemberRelationship SpecialtyStart DateEnd Date Penelope Casas DO [address] [facility] [place] [address] PCP - GeneralFamily Pefrfjmf06/3/22 Jonny Wilcox MD [address] [place] [address] Primary Staff PhysicianCardiology07/16/18 [place] [address] [place] [address] PhysicianHematology/Oncology09/14/21 Davida Restrepo RN [address] [place] [address] Specialty Care CoordinatorHematology/Oncology09/14/21Team MemberRelationship SpecialtyStart DateEnd Date Penelope Casas DO [address] [place] [address] PCP - GeneralFamily Zbnxevir93/3/22 Jonny Wilcox MD [address] [place] [address] Primary Staff PhysicianCardiology07/16/18 [place] [address] [place] [address] PhysicianHematology/Oncology09/14/21 Davida Restrepo RN [address] [place] [address] Specialty Care CoordinatorHematology/Oncology09/14/21Team MemberRelationship SpecialtyStart DateEnd Date Penelope Casas MD [address] [place] [address] PCP - GeneralFamily Medicine11/07/23Team MemberRelationshipSpecialtyStart DateEnd Date Penelope Casas MD [address] [place] [address] PCP - GeneralFamily Medicine11/07/23Team MemberRelationshipSpecialtyStart DateEnd Date Penelope Casas MD [address] [place] [address] PCP - GeneralFamily Medicine11/07/23Team MemberRelationshipSpecialtyStart DateEnd Date Penelope Casas MD [address] [place] [address] PCP - GeneralFamily Medicine11/07/23Team MemberRelationshipSpecialtyStart DateEnd Date Penelope Casas MD [address] [place] [address] PCP - GeneralFamily Medicine11/07/23 Team Status: Inactive Member Role Status Dates Wilton Herrmann DO Attending Provider Active Start : May 10, 2024 End: May 10, 2024Team MemberRelationshipSpecialtyStart DateEnd Date Penelope Casas DO [address] [facility] [place] [address] PCP - GeneralFamily Rrmspotv36/3/22 Jonny Wilcox MD [address] [place] [address] Primary Staff PhysicianCardiology07/16/18 [place] [address] [place] [address] PhysicianHematology/Oncology09/14/21 Davida Restrepo, RN [address] [place] [address] Specialty Care CoordinatorHematology/Oncology09/14/21Team MemberRelationship SpecialtyStart DateEnd Date Penelope Casas MD [address] [place] [address] PCP - Generalmily Medicine11/07/23Team MemberRelationshipSpecialtyStart DateEnd Date Penelope Casas MD [address] [place] [address] [facility]/07/23Team MemberRelationshipSpecialtyStart DateEnd Date Penelope Casas MD [address] [place] [address] PCP - Generalmily Medicine11/07/23Team MemberRelationshipSpecialtyStart DateEnd Date Penelope Casas MD [address] [place] [address] [facility] - [facility]11/07/23Team MemberRelationshipSpecialtyStart DateEnd Date Penelope Casas DO [address] [place] [address] [facility] - [facility] Vevkcrld49/3/22 Jonny Wilcox MD [address] [place] [address] Primary Staff PhysicianCardiology07/16/18 [place] [address] [place] [address] PhysicianHematology/Oncology09/14/21 Davida Restrepo, RN [address] [place] [address] Specialty Care CoordinatorHematology/Oncology09/14/21Team MemberRelationship SpecialtyStart DateEnd Date Penelope Casas MD [address] [place] [address] [facility]11/07/23Team MemberRelationshipSpecialtyStart DateEnd Date Penelope Casas MD [address] [place] [address] [facility] - [facility]11/07/23Team MemberRelationshipSpecialtyStart DateEnd Date Penelope Casas DO PCP - GeneralFamily Medicine07/07/19Team MemberRelationshipSpecialtyStart DateEnd Date Penelope Casas DO PCP - GeneralFamily Medicine07/07/19Team MemberRelationshipSpecialtyStart DateEnd Date Penelope Casas MD [address] [place] [address] PCP - GeneralFamily Medicine11/07/23Team MemberRelationshipSpecialtyStart DateEnd Date Penelope Casas DO PCP - GeneralFamily Medicine07/07/19Team MemberRelationshipSpecialtyStart DateEnd Date Penelope Casas DO PCP - Generalmily Medicine07/07/19Team MemberRelationshipSpecialtyStart DateEnd Date Penelope Casas DO [address] [place] [place] [address] PCP - GeneralFamily Ilnmwoof74/3/22 Jonny Wilcox MD [address] [place] [address] Primary Staff PhysicianCardiology07/16/18 [place] [address] [place] [address] PhysicianHematology/Oncology09/14/21 Davida Restrepo, RN [address] [place] [address] Specialty Care CoordinatorHematology/Oncology09/14/21Team MemberRelationship SpecialtyStart DateEnd Date Penelope Casas DO PCP - [facility] Medicine07/07/19Team MemberRelationshipSpecialtyStart DateEnd Date Penelope Casas MD [address] [place] [address] PCP - [facility] Medicine11/07/23Team MemberRelationshipSpecialtyStart DateEnd Date Penelope Casas MD [address] [place] [address] PCP - [facility] Medicine11/07/23Team MemberRelationshipSpecialtyStart DateEnd Date Penelope Casas DO PCP - [facility] Medicine07/07/19Team MemberRelationshipSpecialtyStart DateEnd Date Penelope Casas DO PCP - [facility] Medicine07/07/19Team MemberRelationshipSpecialtyStart DateEnd Date Penelope Casas MD [address] [place] [address] PCP - [facility] Medicine11/07/23Team MemberRelationshipSpecialtyStart DateEnd Date Penelope Casas MD [address] [place] [address] PCP - [facility] Medicine11/07/23Team MemberRelationshipSpecialtyStart DateEnd Date Penelope Casas DO PCP - GeneralFamily Medicine07/07/19Team MemberRelationshipSpecialtyStart DateEnd Date Penelope Casas DO [address] [place] [address] PCP - GeneralFamily Nrummhfs72/3/22 Jonny Wilcox MD [address] [place] [address] Primary Staff PhysicianCardiology07/16/18 [place] [address] [place] [address] PhysicianHematology/Oncology09/14/21 Davida Restrepo, MARSHA [address] [place] [address] Specialty Care CoordinatorHematology/Oncology09/14/21Team MemberRelationship SpecialtyStart DateEnd Date Penelope Casas DO PCP - GeneralFamily Medicine07/07/19Team MemberRelationshipSpecialtyStart DateEnd Date Penelope Casas DO PCP - GeneralFamily Medicine07/07/19Team MemberRelationshipSpecialtyStart DateEnd Date Penelope Casas DO PCP - GeneralFamily Medicine07/07/19Team MemberRelationshipSpecialtyStart DateEnd Date Penelope Casas DO PCP - GeneralFamily Medicine07/07/19Team MemberRelationshipSpecialtyStart DateEnd Date Penelope Casas DO PCP - GeneralFamily Medicine07/07/19Team MemberRelationshipSpecialtyStart DateEnd Date Penelope Casas MD [address] [facility] [place] [address] PCP - GeneralFamily Medicine11/07/23Team MemberRelationshipSpecialtyStart DateEnd Date Penelope Casas DO PCP - GeneralFamily Medicine07/07/19Team MemberRelationshipSpecialtyStart DateEnd Date Penelope Casas DO PCP - GeneralFamily Medicine07/07/19Team MemberRelationshipSpecialtyStart DateEnd Date Penelope Casas DO PCP - GeneralFamily Medicine07/07/19Team MemberRelationshipSpecialtyStart DateEnd Date Peneloep Casas MD [address] [facility] [place] [address] PCP - GeneralFamily Medicine11/07/23Team MemberRelationshipSpecialtyStart DateEnd Date Penelope Casas DO PCP - GeneralFamily Medicine07/07/19Team MemberRelationshipSpecialtyStart DateEnd Date Penelope Casas DO PCP - GeneralFamily Medicine07/07/19 Reason for Visit (unrecogniz ed section and content) ReasonCommentsFuture AppointmentReasonCommentsPatient QuestionReasonComments Medication QuestionReasonOnset DateCommentsRefill Sjtoyuu26/13/2022ReasonOnset DateCommentsRefill Xvebtxq07/02/2022ReasonCommentsHypercoagulable state6 month follow upReasonCommentsPrimary hypercoagulable state8 week follow upReason CommentsResultsReasonCommentsAppointmentPatient QuestionMedication Question OrdersSpecialtyDiagnoses / ProceduresReferred By ContactReferred To Contact Diagnoses Iron deficiency anemia secondary to blood loss (chronic) Iron deficiency anemia of Procedures INJECTION, FERRIC DERISOMALTOSE, 10 MG Kristofer Calix MD [address] [place] [address] [place] [address] [address] [place] [address] Referral IDStatusReasonStwillsboro DateExpiration DateVisits RequestedVisits [id number]/7/20221/[id number] Request SpecialtyDiagnoses / ProceduresReferred By ContactReferred To Contact Diagnoses Iron deficiency anemia secondary to blood loss (chronic) Iron deficiency anemia of Procedures IRON SUCROSE INJECTION PER 1 MG Kristofer Calix MD [address] [place] [address] [place] [address] [address] [place] [id number] Referral IDStatusReasonStwillsboro DateExpiration DateVisits RequestedVisits [id number]/28/20221/[id number] DateCommentsRefill Utxybxt8407/03/2022ReasonCommentsAnemiaFollow upReasonCommentsOrdersReason CommentsEstablished PatientReasonCommentsAppointmentReasonCommentsLab Orders ReasonCommentsPrimary hypercoagulable state (HCC)Follow upReasonComments Appointment RescheduledSpecialtyDiagnoses / ProceduresReferred By Contact Referred To Contact Diagnoses Iron deficiency anemia of Iron deficiency anemia secondary to blood loss (chronic) Procedures IRON SUCROSE INJECTION PER 1 MG Kristofer Calix MD [address] [facility] [place] [address] Delgado Treat [address]w [address] [place] [address] Referral IDStatusReasonStart DateExpiration DateVisits RequestedVisits [id number]/8/20241/[id number] DateCommentsRefill Zvfwcwn0211/29/2023easonCommentsAmenorrheaReasonOnset DateCommentsRefill Request 04/28/2024easonCommentsRoutine VisitReasonCommentsPatient UpdateReason CommentsAnemiafollowupReasonCommentsfollow up miscarriageReasonCommentsVaginal BleedingDizzinessReasonCommentsIrregular CyclesReasonOnset DateCommentsRefill Suejvmz8807/25/2024ReasonOnset DateCommentsRefill Cqryufi5310/20/2024ReasonOnset DateCommentsRefill Mijcpib2910/29/2024ReasonCommentsGestational DiabetesSpecialty Diagnoses / ProceduresReferred By ContactReferred To ContactMaternal and Medicine Diagnoses Gestational diabetes mellitus (GDM), antepartum, gestational diabetes method of control unspecified Wilton Herrmann, DO [address] [place] [address] [place] [address] Phone: tel: fax: M[facility]- [facility] at [facility] [address] [place] [address] Phone: tel: fax: Referral IDStatusReasonStart DateExpiration DateVisits RequestedVisits [id number] Review Specialty Services Required [id number]gqbfx stateAnemia8 week follow up ReasonCommentsMFM consultReasonCommentsRoutine VisitReasonComments Follow-up Goals (unrecognized section and content) Goals [...] BE BASED ON THE PRIMARY CLINICAL RECORDS. [facility] [employer] provides no warranty or guarantee of the accuracy or completeness of information in this document.
[2025-02-19 11:09] LABS: Antinuclear Antibodies, IFA Negative (.)
== END 2025-02-17 13:17 | disposition home or self-care (01) ==
LOC: LAB 13:18
DX: D68.61 Antiphospholipid syndrome (principal); Z67.91 Unspecified blood type, Rh negative; O99.119 Other diseases of the blood and blood-forming organs and certain disorders involving the immune mechanism complicating pregnancy, unspecified trimester; Z86.73 Personal history of transient ischemic attack (TIA), and cerebral infarction without residual deficits
CPT/HCPCS: 36415; 84443; 85025; 86038; 86160; 86225; 86235; 86850; 86900; 86901

== ENCOUNTER 2025-02-19 19:00 | Outpatient (RCR) | payer MEDICAID, SELFPAY ==
[2025-02-17 13:42] LABS: Hematocrit 34.6 % (36.0-48.0); Hemoglobin 12.1 g/dL (12.0-16.0); Immature Granulocytes Abs Auto 0.06 10^3/uL (0.00-0.03); Immature Granulocytes Pct Auto 0.6 % (0.0-0.5); Lymphocytes Absolute Auto 2.3 10^3/uL (1.2-3.8); Mean Corpuscular HGB Conc 35.0 g/dL (29.9-35.2); Mean Corpuscular Hemoglobin 31.7 pg (26.7-34.0); Mean Corpuscular Volume 90.6 fL (81.0-99.0); Platelet Count 311 10^3/uL (150-450); Red Blood Count 3.82 10^6/uL (4.20-5.40); White Blood Count 9.6 10^3/uL (4.0-11.0)
[2025-02-17 14:31] LABS: Thyroid Stimulating Hormone 1.745 uIU/mL (0.358-3.740)
--- NOTE | 2025-02-19 19:40 | US_ITS ---
The [address] [address] Patient Name: MADHU RENDON MRN: [facility]:[id number] date: 1985 Sex: F Assigned Patient Location: LAB Current Patient Location: Accession/Order Number: [id number] Exam Date: 02/19/2025 19:47 Report Date: 02/20/2025 08:37 At the request of: MYA MASSEY DO Procedure: US OB BPP w non-stress CLINICAL DATA: Third trimester evaluation Z34.93 ULTRASOUND OB GROWTH COMPARISON: 09/11/2024 There is a single live intrauterine gestation in breech presentation. There is cardiac and somatic activity with heart rate of 142 bpm. The amniotic fluid index measures 13.2 cm which is in normal range. The following measurements were obtained: Biparietal diameter 7.1 cm 28 weeks 3 days 13% Head circumference 27.1 cm 29 weeks 4 days 21% Abdominal circumference 24.7 cm 29 weeks 0 days 30% Femur length 7.8 cm 30 weeks 1 day 56% The composite ultrasound age based on these measurements is 29 weeks 2 days +/- 2 weeks 0 days. This correlates with the reported gestational age. The estimated weight is 3 lbs. 1 oz. +/- 7 ounces (35%). US/US OB growth IMPRESSION: SINGLE LIVE INTRAUTERINE GESTATION WITH ULTRASOUND AGE OF 29 WEEKS 2 DAYS. BIOPHYSICAL PROFILE: COMPARISON: 02/12/2025 FINDINGS: TONE: 1 or more episodes of activity extension and flexion of extremity or opening and closing of the hand [Y] 2/2 GROSS BODY MOVEMENTS: 3 or more discrete body or limb movements [Y] 2/2 BREATHING MOVEMENTS: 1 or more episodes of breathing lasting at least 30 seconds [Y] 2/2 SARAHI: A single deepest vertical pocket of amniotic fluid greater than 2 cm [Y] 2/2 SARAHI: 13.2 cm Total score: 8/8 IMPRESSION: NORMAL BIOPHYSICAL PROFILE Impression dictated by: Pamela Pisano M.D. 02/20/2025 8:37 AM Dictation Location: [place] [address] Electronically authenticated by: [id number] Y Date: 02/20/2025 08:37
--- NOTE | 2025-02-19 19:40 | US_ITS ---
The [address] [address] Patient Name: MADHU RENDON MRN: [id number] date: 1985 Sex: F Assigned Patient Location: LAB Current Patient Location: Accession/Order Number: [id number] Exam Date: 02/19/2025 19:47 Report Date: 02/20/2025 08:37 At the request of: MYA MASSEY DO Procedure: US OB BPP w non-stress CLINICAL DATA: Third trimester evaluation Z34.93 ULTRASOUND OB GROWTH COMPARISON: 09/11/2024 There is a single live intrauterine gestation in breech presentation. There is cardiac and somatic activity with heart rate of 142 bpm. The amniotic fluid index measures 13.2 cm which is in normal range. The following measurements were obtained: Biparietal diameter 7.1 cm 28 weeks 3 days 13% Head circumference 27.1 cm 29 weeks 4 days 21% Abdominal circumference 24.7 cm 29 weeks 0 days 30% Femur length 7.8 cm 30 weeks 1 day 56% The composite ultrasound age based on these measurements is 29 weeks 2 days +/- 2 weeks 0 days. This correlates with the reported gestational age. The estimated weight is 3 lbs. 1 oz. +/- 7 ounces (35%). US/US OB BPP w non-stress IMPRESSION: SINGLE LIVE INTRAUTERINE GESTATION WITH ULTRASOUND AGE OF 29 WEEKS 2 DAYS. BIOPHYSICAL PROFILE: COMPARISON: 02/12/2025 FINDINGS: TONE: 1 or more episodes of activity extension and flexion of extremity or opening and closing of the hand [Y] 2/2 GROSS BODY MOVEMENTS: 3 or more discrete body or limb movements [Y] 2/2 BREATHING MOVEMENTS: 1 or more episodes of breathing lasting at least 30 seconds [Y] 2/2 SARAHI: A single deepest vertical pocket of amniotic fluid greater than 2 cm [Y] 2/2 SARAHI: 13.2 cm Total score: /8 IMPRESSION: NORMAL BIOPHYSICAL PROFILE Impression dictated by: Pamela Pisano M.D. 02/20/2025 8:37 AM Dictation Location: [place] [address] Electronically authenticated by: [id number] Y Date: 02/20/2025 08:37
[2025-02-19 20:28] VITALS: BP 113/54; PULSE 73
[2025-02-19] MEDS: RHO(D) IMMUNE GLOBULIN 1,500 UNIT SYRINGE 1500 UNIT IM (20:58)
[2025-02-19 21:31] VITALS: BP 119/57; PULSE 76
== END 2025-02-19 21:33 | disposition home or self-care (01) ==
LOC: US 19:00
PROVIDERS: Visit Provider Obstetrics & Gynecology
DX: O26.893 Other specified pregnancy related conditions, third trimester (principal); Z67.91 Unspecified blood type, Rh negative; Z3A.29 29 weeks gestation of pregnancy
CPT/HCPCS: 36415; 76816; 76818; 84443; 85025; 86850; 86900; 86901; J2791

== ENCOUNTER 2025-02-26 19:11 | Outpatient (OUT) | payer MEDICAID, SELFPAY ==
--- OUTSIDE RECORDS SUMMARY | 2025-02-09 10:30 | XMS_ITS | Encounter Summary ---
Author Organization [facility] Address [address] [place] [address] Care Team Providers Care Oven Dumper Name Role Phone Evans Casas MD Primary Care Provider [phone] Reason for Visit * ReasonCommentsRoutine Visit Encounter Details DateTypeDepartmentCare Team (Latest Contact Info)Qocsuvptgxp95/13/2025 10:30 AM EDTRoutine [facility] [address] [place] [phone] Wilton Herrmann DO [address] [place] [phone] Third trimester ([facility] 28 weeks gestation of ([facility]); Anemia complicating childbirth ([facility]); Anticoagulant long-term use; Antiphospholipid antibody positive; Blood pressure elevated without history of HTN; Coagulation defect, unspecified ([facility]) Social History Tobacco UseTypesPacks/DayYears UsedDateSmoking Tobacco: NeverSmokeless Tobacco: NeverAlcohol UseStandard Drinks/WeekCommentsNever0 (1 standard drink = 0.6 oz pure alcohol)PHQ-2AnswerDate RecordedPatient Health Questionnaire-2 Score0 01/06/2025Estimated Date of XwjyjeukGrbauromVxk17/05/2026ased on last menstrual period of 07/28/2024Sex and Gender InformationValueDate RecordedSex Assigned at BirthNot on fileLegal YxtVnscay39/15/2023 11:19 PM EDTGender IdentityNot on fileSexual OrientationNot on filedocumented as of this encounter Last Filed Vital Signs Vital SignReadingTime TakenCommentsBlood Xrwjwhoj531/7610 10:45 AM EDT Pulse--Temperature--Respiratory Rate--Oxygen Saturation--Inhaled Oxygen Concentration--Ylpgka01.9 kg (211 lb 6.4 oz)02/09/2025 10:45 AM [...] to check FSBS. Blood Glucose Monitoring Suppl (Wimdu Glucometer) w/Device kit 1 kit, Does not [...] Diagnosis Date Noted 32 weeks gestation of ([facility]) 11/28/2019 Abdominal pain 06/12/2023 Acute bronchitis due to infection 06/12/2023 Acute on chronic vesicular eczema of hands and feet 11/15/2023 Anemia complicating childbirth ([facility]) 01/16/2020 Anticoagulant long-term use 02/22/2020 Antiphospholipid antibody positive 09/10/2017 Antiphospholipid antibody syndrome ([facility]) 07/07/2019 Anxiety 06/12/2023 Blood pressure elevated without history of HTN 11/15/2023 BMI 37.0-37.9, adult 11/15/2023 Cerebral infarction, unspecified ([facility]) 05/16/2019 Cerebrovascular accident (CVA) due to stenosis of middle cerebral artery ([facility]) 02/22/2020 Cervicalgia 02/05/2019 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 ([facility]) 01/08/2020 Coagulation defect, unspecified ([facility]) 02/05/2019 Cold intolerance 11/15/2023 Deficiency of other specified B group vitamins 05/16/2019 Deviated septum 11/15/2023 Dizziness and giddiness 02/05/2019 Dry mouth 11/15/2023 Dysfunction of eustachian tube 06/12/2023 Dyspnea 06/12/2023 Elevated blood pressure reading 11/15/2023 Encounter for supervision of normal , unspecified, first trimester ([facility]) 05/29/2019 Environmental allergies 11/15/2023 Fatigue 12/29/2016 First degree perineal laceration during delivery ([facility]) 01/16/2020 Frequency of micturition 02/19/2019 Genitourinary symptoms 08/19/2021 Gestational diabetes mellitus (GDM), antepartum ([facility]) 01/26/2022 H/O: hypothyroidism 11/15/2023 Hematochezia [...] anemia 01/16/2020 Irregular uterine bleeding 11/15/2023 problem ([facility]) 06/12/2023 Less than 8 weeks gestation of ([facility]) 06/05/2019 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/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 02/05/2019 Migraine without aura and without status migrainosus, not intractable 09/12/2017 Morbid obesity ([facility]) 11/15/2023 Muscle fasciculation 08/19/2021 Nasal polyps 11/15/2023 Non-smoker 11/15/2023 NEETA (obstructive sleep apnea) 11/15/2023 Other acute postprocedural pain 02/03/2019 Other general symptoms and signs 10/28/2019 Other immediate hemorrhage ([facility]) 01/16/2020 Other specified noninflammatory disorders of vagina 02/21/2019 Pain in joint 12/29/2016 Palpitations 08/26/2019 Paresthesia of bilateral legs 11/15/2023 Pelvic and perineal pain 02/01/2019 Personal history of urinary (tract) infections 01/16/2020 Pre-diabetes 11/15/2023 Primary hypercoagulable state ([facility]) 08/01/2022 Pruritus, unspecified 01/02/2020 Psychogenic hyperventilation 06/12/2023 Raised antibody titer 09/25/2017 Right lower quadrant pain 11/15/2023 Right otitis externa 11/15/2023 Salivary gland swelling 11/15/2023 Single live ([facility]) 01/15/2020 Snoring 11/15/2023 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 Exam conducted with a accounting lecturer present. Vitals: Estimated body mass index is 34.12 kg/m?? as calculated from the following: Height as of 11/19/23: 5' 6 . Weight as of this encounter: 211 lb 6.4 oz. BP: 124/76 Patient's last menstrual period was 07/28/2024. ASSESSMENT & PLAN ICD-10-CM 1. Third trimester ([facility]) Z34.93 2. 28 weeks gestation of ([facility]) Z3A.28 CBC and differential POCT urinalysis dipstick [...] givenorders and they were also faxed to [facility] and [facility] Scheduling. Patient to return to clinic in 2 weeks for routine OB appointment. Documented by Rosi Murray LPN on behalf of: Wilton Herrmann DO documented in this encounter Plan of Treatment DateTypeDepartmentCare Team (Latest Contact Info)Nvtzdmthqnm83/11/2025 9:50 AM ESTRoutine [facility] [address] [place] [phone] Wilton Herrmann DO [address] [place] [address] NameTypePriorityAssociated DiagnosesOrder ScheduleCBC and differentialLabRoutine 28 weeks gestation of ([facility]) Ordered: 02/09/2025US OB follow up transabdominal approachImagingRoutine Third trimester ([facility]) 28 weeks gestation of ([facility]) Anemia complicating childbirth ([facility]) Anticoagulant long-term use Antiphospholipid antibody positive Blood pressure elevated without history of HTN Coagulation defect, unspecified ([facility]) Expected: 02/09/2025, Expires: 06/12/2025US biophysical profile w non stress testImagingRoutine Third trimester ([facility]) 28 weeks gestation of ([facility]) Anemia complicating childbirth ([facility]) Anticoagulant long-term use Antiphospholipid antibody positive Blood pressure elevated without history of HTN Coagulation defect, unspecified ([facility]) Expected: 02/09/2025 (Approximate), Expires: 08/10/2025documented as of this encounter Procedures Procedure NamePriorityDate/TimeAssociated DiagnosisCommentsPOCT URINALYSIS JXCIZTIIFppcnfw41/13/2025 10:55 AM EDT 28 weeks gestation of ([facility]) documented in this encounter Results [...] Location / LateralityCollection Method / VolumeCollection TimeReceived PokmTeyqv61/13/2025 10:55 AM EDT Narrative Authorizing ProviderResult TypeResult [...] MemberRelationshipSpecialtyStart DateEnd Date Evans Casas MD [address] [place] [address] PCP - GeneralFamily Medicine11/07/23documented as of this encounter
--- OUTSIDE RECORDS SUMMARY | 2025-02-16 13:45 | XMS_ITS | Encounter Summary ---
Author Organization [facility] Address [id number] [address] [place] [address] Care Team Providers Care Senior Design Engineer Name Role Phone Evans Casas DO Primary Care Provider [phone] Reason for Visit * Consultation (Urgent) - Pending ReviewSpecialtyDiagnoses / ProceduresReferred By ContactReferred To ContactRheumatology Diagnoses 22 weeks gestation of Antiphospholipid syndrome complicating , antepartum Wilfrid Medina MD [address] [address] Phone: tel: fax: Sam Callahan MD MPH [address] [place] [phone] Phone: tel: fax: Referral IDStatusReasonStart DateExpiration DateVisits RequestedVisits [id number] Review Specialty Services Required / Encounter Details DateTypeDepartmentCare Team (Latest Contact Info)Wywprhdtgqg15/20/2025 1:45 PM EDTOffice Visit [facility] Department of [address] [phone] Sam Callahan MD MPH [address] [place] [phone] Antiphospholipid syndrome (Primary Dx); Antiphospholipid syndrome complicating , antepartum; History of CVA (cerebrovascular accident); Coordination of complex care; 29 weeks gestation of Social History Tobacco UseTypesPacks/DayYears UsedDateSmoking Tobacco: NeverSmokeless Tobacco: Never Tobacco Cessation:Counseling Given: Not Answered Alcohol UseStandard Drinks/WeekCommentsNot Currently0 (1 standard drink = 0.6 oz pure alcohol)ChildcareAnswerDate HigsldeaLiutezvqfJdtghlq91/31/2019Employment AnswerDate ThxptyatLtpaiupguvIysjjhu13/31/2019Hunger ScreeningAnswerDate RecordedWithin the past 12 months we worried whether our food would run out before we got money to buy more.Never True01/01/2025Within the past 12 months the food we bought just didn't last and we didn't have money to get more.Never True01/01/2025Purpose - LifeAnswerDate RecordedPurpose and direction in life Dwdebyo49/11/2021Estimated Date of TbngvmaaNscsyiiiTso52/05/2026Based on last menstrual period of 07/28/2024Sex and Gender InformationValueDate Recorded Sex Assigned at BirthNot on fileLegal QncYqzpnb96/31/2019 12:25 PM EDTGender IdentityNot on fileSexual OrientationNot on filedocumented as of this encounter Last Filed Vital Signs Vital SignReadingTime TakenCommentsBlood Sftqdojb594/8010 1:44 PM EDT Tgopj284302/16/2025 1:44 PM EDTTemperature--Respiratory Hxck3707 1:44 PM EDTOxygen Saturation--Inhaled Oxygen Concentration--Cftjlz95.8 kg (209 lb) 02/16/2025 1:44 PM YDKYxveqh747.6 cm (5' 6 )02/16/2025 1:44 PM EDTBody Mass Index33.7302/16/2025 1:44 PM EDTdocumented in this encounter Progress Notes * Sam Callahan MD MPH - 02/16/2025 1:45 PM EDT Images from the original note were not included. ADULT RHEUMATOLOGY CLINIC NOTE [address] [phone] Patient Name: Sanna Bone Subjective Reason for [...] following with two outside specialists (Neurology at [facility] and Hematology at [facility]) for management of her APS. [...] health issues unclear exact diagnoses Note from [facility] Provider (Dr. Medina): Recent note from [...] age) multigravida 35+ Antiphospholipid syndrome Hypothyroid Stroke ([facility]) Gestational diabetes mellitus (GDM) in second trimester [...] Anemia Antiphospholipid antibody syndrome Cerebral infarction, unspecified ([facility]) 05/16/2019 Hypothyroid Migraine without aura and without status migrainosus, not intractable 09/12/2017 Stroke ([facility]) 2016 reviewed. Social History Social History Narrative [...] weeks . She is currently following with [facility] for her , neurology through the [employer] system, and hematology through [facility]. Based on extensive review of [...] Expiration Date: 02/16/2026 Release to patient via Edvivohart?: Immediate [1] Complement profile (C3 AND C4) Standing Status: Future Expiration Date: 02/16/2026 Release to patient via Edvivohart?: Immediate [1] DNA double-stranded (dsDNA) Abs by Rene angel IFA Standing Status: Future Expiration Date: 02/16/2026 Release to patient via Edvivohart?: Immediate [1] KELLEN Panel Standing Status: Future Expiration Date: 02/16/2026 Release to patient via Edvivohart?: Immediate [1] Treatment Plan: -if the patient [...] notes to her other specialists including her [facility] physician, neurologist, and hematology provider Health Maintenance: -The patient should continue to follow with their PCP for age and risk factor appropriate cancer screening and immunizations. Follow-up: -4-6 weeks, video visit is OK Sam Callahan MD, MPH [facility] [address] [place], [place] [phone] Total chca-os-qknj time was 55 minutes with more than [...] Plan of Treatment DateTypeDepartmentCare Team (Latest Contact Info)Xomaiexwoax83/11/2025 8:00 AM ESTTelemedicine Maternal- Medicine at [address] [phone] Sana Palma MD [address] [place] [phone] 03/17/2025 8:30 AM ESTTelemedicine [facility], A Department of [address] [phone] Sam Callahan MD MPH [address] [place] [phone] NameTypePriorityAssociated DiagnosesOrder ScheduleAntinuclear Ab, HEp-2 Substrate, [...]
--- OUTSIDE RECORDS SUMMARY | 2025-02-23 09:00 | XMS_ITS | Encounter Summary ---
Author Organization [facility] Address [address] [place] [address] Care Team Providers Care Health Services Manager Name Role Phone Evans Casas MD Primary Care Provider [phone] Reason for Visit * ReasonCommentsRoutine Visit Encounter Details DateTypeDepartmentCare Team (Latest Contact Info)Xcicoloxffn79/27/2025 9:00 AM EDTRoutine [facility] [address] [place] [phone] Wilton Herrmann DO [address] [place], [place] [id number] Third trimester ([facility]); 30 weeks gestation of ([facility]) Social History Tobacco UseTypesPacks/DayYears UsedDateSmoking Tobacco: NeverSmokeless Tobacco: NeverAlcohol UseStandard Drinks/WeekCommentsNever0 (1 standard drink = 0.6 oz pure alcohol)PHQ-2AnswerDate RecordedPatient Health Questionnaire-2 Score0 01/06/2025Estimated Date of PeedqzpyPdcoudekLfj18/05/2026ased on last menstrual period of 07/28/2024Sex and Gender InformationValueDate RecordedSex Assigned at BirthNot on fileLegal PshMqdofi32/15/2023 11:19 PM EDTGender IdentityNot on fileSexual OrientationNot on filedocumented as of this encounter Last Filed Vital Signs Vital SignReadingTime TakenCommentsBlood Hbrhzmte896/7202/23/2025 9:26 AM EDT Pulse--Temperature--Respiratory Rate--Oxygen Saturation--Inhaled Oxygen Concentration--Juzmhu42.5 kg (210 lb 8 oz)02/23/2025 9:26 AM [...] to check FSBS. Blood Glucose Monitoring Suppl (D-COINTERRA Glucometer) w/Device kit 1 kit, Does not [...] Diagnosis Date Noted 32 weeks gestation of ([facility]) 11/28/2019 Abdominal pain 06/12/2023 Acute bronchitis due to infection 06/12/2023 Acute on chronic vesicular eczema of hands and feet 11/15/2023 Anemia complicating childbirth ([facility]) 01/16/2020 Anticoagulant long-term use 02/22/2020 Antiphospholipid antibody positive 09/10/2017 Antiphospholipid antibody syndrome ([facility]) 07/07/2019 Anxiety 06/12/2023 Blood pressure elevated without history of HTN 11/15/2023 BMI 37.0-37.9, adult 11/15/2023 Cerebral infarction, unspecified ([facility]) 05/16/2019 Cerebrovascular accident (CVA) due to stenosis of middle cerebral artery ([facility]) 02/22/2020 Cervicalgia 02/05/2019 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 ([facility]) 01/08/2020 Coagulation defect, unspecified ([facility]) 02/05/2019 Cold intolerance 11/15/2023 Deficiency of other specified B group vitamins 05/16/2019 Deviated septum 11/15/2023 Dizziness and giddiness 02/05/2019 Dry mouth 11/15/2023 Dysfunction of eustachian tube 06/12/2023 Dyspnea 06/12/2023 Elevated blood pressure reading 11/15/2023 Encounter for supervision of normal , unspecified, first trimester ([facility]) 05/29/2019 Environmental allergies 11/15/2023 Fatigue 12/29/2016 First degree perineal laceration during delivery ([facility]) 01/16/2020 Frequency of micturition 02/19/2019 Genitourinary symptoms 08/19/2021 Gestational diabetes mellitus (GDM), antepartum ([facility]) 01/26/2022 H/O: hypothyroidism 11/15/2023 Hematochezia [...] anemia 01/16/2020 Irregular uterine bleeding 11/15/2023 problem ([facility]) 06/12/2023 Less than 8 weeks gestation of ([facility]) 06/05/2019 group home (current) use of 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/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 02/05/2019 Migraine without aura and without status migrainosus, not intractable 09/12/2017 Morbid obesity ([facility]) 11/15/2023 Muscle fasciculation 08/19/2021 Nasal polyps 11/15/2023 Non-smoker 11/15/2023 NEETA (obstructive sleep apnea) 11/15/2023 Other acute postprocedural pain 02/03/2019 Other general symptoms and signs 10/28/2019 Other immediate hemorrhage ([facility]) 01/16/2020 Other specified noninflammatory disorders of vagina 02/21/2019 Pain in joint 12/29/2016 Palpitations 08/26/2019 Paresthesia of bilateral legs 11/15/2023 Pelvic and perineal pain 02/01/2019 Personal history of urinary (tract) infections 01/16/2020 Pre-diabetes 11/15/2023 Primary hypercoagulable state ([facility]) 08/01/2022 Pruritus, unspecified 01/02/2020 Psychogenic hyperventilation 06/12/2023 Raised antibody titer 09/25/2017 Right lower quadrant pain 11/15/2023 Right otitis externa 11/15/2023 Salivary gland swelling 11/15/2023 Single live ([facility]) 01/15/2020 Snoring 11/15/2023 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) 12/30/2019 Suspected severe acute respiratory syndrome coronavirus 2 (SARS-CoV-2) infection 06/12/2023 SVT (supraventricular tachycardia) ([facility]) 08/26/2019 Syncope and collapse 06/03/2018 Other bacterial infections of unspecified site 06/27/2019 Thrombocytopenia, unspecified 11/20/2019 Hypoglycemia 06/12/2023 Unspecified condition associated with female genital organs and menstrual cycle 05/09/2019 Unspecified ovarian cyst, right side 02/06/2019 Urinary tract infection 10/16/2019 Referred otalgia of right ear 11/19/2023 LPRD (laryngopharyngeal reflux disease) 11/19/2023 H/O loss 01/05/2025 Multigravida of advanced maternal age in second trimester ([facility]) 01/05/2025 Thyroid disease 01/05/2025 Resolved [...] drainage of cyst WISDOM TOOTH EXTRACTION 2007 [place] teeth REVIEW OF SYSTEMS Review of Systems: [...] nursing note reviewed. Exam conducted with a director of strategic communications present. Vitals: Estimated body mass index is 33.98 kg/m?? as calculated from the following: Height as of 11/19/23: 5' 6 . Weight as of this encounter: 210 lb 8 oz. BP: 116/72 Patient's last menstrual period was 07/28/2024. Assessment/Plan ICD-10-CM 1. Third trimester ([facility]) Z34.93 2. 30 weeks gestation of ([facility]) Z3A.30 POCT urinalysis dipstick manually resulted Patient [...] Plan of Treatment DateTypeDepartmentCare Team (Latest Contact Info)Bloibtstlgf08/11/2025 9:50 AM ESTRoutine [facility] [address] [place] [phone] Wilton Herrmann DO [address] [place] [address] documented as of this encounter Procedures Procedure NamePriorityDate/TimeAssociated DiagnosisCommentsPOCT URINALYSIS UUFJMMFJDfepvhq16/27/2025 9:38 AM EDT 30 weeks gestation of ([facility]) documented in this encounter Results * POCT [...] Date Evans Casas MD [address] [place] [address] PCP - GeneralFamily Medicine11/07/23documented as of this encounter
--- OUTSIDE RECORDS SUMMARY | 2025-02-26 19:15 | XMS_ITS | Encounter Summary ---
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 Name Role Phone Evans Casas MD Primary Care Provider [phone] Encounter Details DateTypeDepartmentCare Team (Latest Contact Info)Nvecudxoxhz20/24/2025linisync Result Encounter [facility] Department Unsolicited Mya Herrmann DO [address] [place] [address] Social History Tobacco UseTypesPacks/DayYears UsedDateSmoking Tobacco: NeverSmokeless Tobacco: NeverAlcohol UseStandard Drinks/WeekCommentsNever0 (1 standard drink = 0.6 oz pure alcohol)PHQ-2AnswerDate RecordedPatient Health Questionnaire-2 Score0 01/06/2025Estimated Date of UwbmgcryQfxldoeiGyv28/05/2026ased on last menstrual period of 07/28/2024Sex and Gender InformationValueDate RecordedSex Assigned at BirthNot on fileLegal PdqLlnfgw36/15/2023 11:19 PM EDTGender IdentityNot on fileSexual OrientationNot on filedocumented as of this encounter Plan of Treatment DateTypeDepartmentCare Team (Latest Contact Info)Zgnmcpgzzxf97/11/2025 9:50 AM ESTRoutine [facility] [address] [place] [phone] Mya Herrmann DO [address] [place] [address] documented as of this encounter Procedures Procedure NamePriorityDate/TimeAssociated DiagnosisCommentsUS OB GROWTH 02/20/2025 8:37 AM EDT documented in this encounter Results * US OB GROWTH (02/20/2025 8:37 AM EDT)Anatomical RegionLateralityModalityOther Specimen (Source)Anatomical Location / LateralityCollection Method / Volume Collection TimeReceived Time02/20/2025 8:37 AM EDT Narrative 02/20/2025 8:40 AM EDT [facility] ?[address] ? [place] [address] ? Ultrasound Report ? Signed ? Patient: JUSTICE,MADHU S ?MR#: [id number] ?? : 1985 ?Acct:[id number] ?? Age/Sex: 39 / F ?ADM Date: 02/19/25 ?? Loc: US ? Attending Dr: Mya Herrmann D.O. ? Ordering Physician: Mya Herrmann D.O. ?? Date of Service: 02/19/25 ?? Procedure(s): US OB growth ?? Accession Number(s): [id number] ? cc: Mya Herrmann D.O.; Physician,Non-Staff M.D. ? [facility] ? [address] [place] [address] ? [place] [address] ? Patient Name: ?? MADHU RENDON ? MRN: [facility]:[id number] ? date: 1985 ?Sex: F ?? Assigned Patient Location: LAB ?? Current Patient Location: ? Accession/Order Number: [id number] ?? Exam Date: 02/19/2025 ??19:47 ?Report Date: 02/20/2025 ??08:37 ? At the request of: ?? MYA ??MONTEZ ??DO ? Procedure: ??US OB BPP w non-stress ? CLINICAL DATA: Third trimester evaluation ??Z34.93 ? ULTRASOUND OB GROWTH ? COMPARISON: 09/11/2024 ? There is a single live intrauterine gestation in breech presentation. ??There ?? is cardiac and somatic activity with heart rate of 142 bpm. ??The ?? amniotic fluid index measures 13.2 cm which is in normal range. ? The following measurements were obtained: ?? Biparietal diameter ? 7.1 cm ?? 28 weeks 3 days ? 13% ?? Head circumference ? 27.1 cm ?? 29 weeks 4 days ? 21% ?? Abdominal circumference ?24.7 cm ?? 29 weeks 0 days ? 30% ?? Femur length ?7.8 cm ?? 30 weeks 1 day ? 56% ?? The composite ultrasound age based on these measurements is 29 weeks 2 days ?? +/- 2 weeks 0 days. ??This correlates with the reported gestational age. ??The ?? estimated weight is 3 lbs. 1 oz. +/- 7 ounces (35%). ? / OB growth ?? IMPRESSION: ? SINGLE LIVE INTRAUTERINE GESTATION WITH ULTRASOUND AGE OF 29 WEEKS 2 DAYS. ? BIOPHYSICAL PROFILE: ? COMPARISON: 02/12/2025 ? FINDINGS: ? TONE: 1 or more episodes of activity extension and flexion of ?? extremity or opening and closing of the hand ?[Y] ? 2/2 ?? GROSS BODY MOVEMENTS: 3 or more discrete body or limb movements ?[Y] ? 2/2 ?? BREATHING MOVEMENTS: 1 or more episodes of breathing lasting at ?? least 30 seconds ? [Y] ? 2/2 ?? SARAHI: A single deepest vertical pocket of amniotic fluid greater than 2 cm ? [Y] ? 2/2 ?SARAHI: 13.2 cm ? Total score: ? 8/8 ? IMPRESSION: ? NORMAL BIOPHYSICAL PROFILE ? Impression dictated by: Pamela Pisano M.D. ??02/20/2025 8:37 AM ? Dictation Location: RADIO-PC-02 ? Electronically authenticated by: [id number] ??Y ?? Date: 02/20/2025 ??08:37 ? Dictated By: ?Pamela Pisano M.D. ? Signed By: ?02/20/25 0840 ? DD/ 0837 ? TD/TT: ? Grave Cleaner: Procedure Note Radiology, Radiologist, - 02/20/2025 [place] [address] Ultrasound Report Signed Patient: MADHU RENDON [facility]#: [id number] : 1985Acct:[id number] Age/Sex: 39 / FADM Date: 02/19/25 Loc: US Attending Dr: Mya Herrmann D.O. Ordering Physician: Mya Herrmann D.O. Date of Service: 02/19/25 Procedure(s): US OB growth Accession Number(s): [id number] cc: Mya Herrmann D.O.; Physician,Non-Staff MGiovanni [place] [id number] Patient Name: MADHU RENDON MRN: [facility]:[id number] date: 1985 Sex: F Assigned Patient Location: LAB Current Patient Location: Accession/Order Number: [id number] Exam Date: 02/19/2025 19:47 Report Date: 02/20/2025 08:37 At the request of: MYA HERRMANN DO Procedure: US OB BPP w non-stress CLINICAL DATA: Third trimester evaluation Z34.93 ULTRASOUND OB GROWTH COMPARISON: 09/11/2024 There is a single live intrauterine gestation in breech presentation.There is cardiac and somatic activity with heart rate of 142 bpm. The amniotic fluid index measures 13.2 cm which is in normal range. The following measurements were obtained: Biparietal diameter 7.1 cm 28 weeks 3 days 13% Head circumference 27.1 cm 29 weeks 4 days 21% Abdominal circumference 24.7 cm 29 weeks 0 days 30% Femur length 7.8 cm 30 weeks 1 day56% The composite ultrasound age based on these measurements is 29 weeks 2days +/- 2 weeks 0 days. This correlates with the reported gestational age.The estimated weight is 3 lbs. 1 oz. +/- 7 ounces (35%). US/US OB growth IMPRESSION: SINGLE LIVE INTRAUTERINE GESTATION WITH ULTRASOUND AGE OF 29 WEEKS 2 DAYS. BIOPHYSICAL PROFILE: COMPARISON: 02/12/2025 FINDINGS: TONE: 1 or more episodes of activity extension and flexion of extremity or opening and closing of the hand [Y] 2/2 GROSS BODY MOVEMENTS: 3 or more discrete body or limb movements [Y] 2/2 BREATHING MOVEMENTS: 1 or more episodes of breathing lastingat least 30 seconds [Y] 2/2 SARAHI: A single deepest vertical pocket of amniotic fluid greater than 2 cm [Y] 2/2 SARAHI: 13.2 cm Total score: 12/05 IMPRESSION: NORMAL BIOPHYSICAL PROFILE Impression dictated by: Pamela Pisano M.D. 02/20/2025 8:37 AM Dictation Location: [place] [address] Electronically authenticated by: [id number] Y Date: 508:37 Dictated By: Pamela Pisano M.D. Signed By:02/20/25839 DD/ 6 TD/TT: Grave Cleaner: Authorizing ProviderResult TypeResult StatusCorey Montez DOCLINISYNC IMAGINGFinal Result documented in this encounter Visit Diagnoses Not on filedocumented in this encounter Care Teams Team MemberRelationshipSpecialtyStart DateEnd Date Evans Casas MD [address] [facility] [place] [place] [address] PCP - GeneralFamily Medicine11/07/23documented as of this encounter
--- OUTSIDE RECORDS SUMMARY | 2025-02-26 19:15 | XMS_ITS | Clinical Summary ---
Author Organization [facility] Address [address] [place] [address] Care Team Providers Care Packaging Manager Name Role Phone Penelope Casas MD Primary Care Provider [phone] Allergies Active AllergyReactionsCriticalityNoted DateCommentsCiprofloxacinGI intolerance 04/19/2023iprofloxacin-Fluocinolone Pf05/19/2019 Other Reaction(s): Other: See Comments Dizziness, weakness sweating Jegvzuf1209/10/2017 Other Reaction(s): GI Disturbance, GI Upset Diarrhea Diarrhea Lactose Intolerance (Gi)11/15/2023 Other Reaction(s): Illness Tayniyqlmmw60/06/2021 Other Reaction(s): Other (See Comments) NpptwGqwxoNfe73/26/2018 seasonal Other Reaction(s): Other (See Comments) Medications MedicationSigDispense QuantityRefillsLast FilledStart DateEnd DateStatus Multiple Vitamin (Multi-Vitamin) tablet Take 1 tablet by mouth in the morning.Active levothyroxine (Synthroid) 25 MCG tablet Indications:Abnormal TSHTake 1 tablet (25 mcg) by mouth in the morning. Take before meals. 30 tablet 110//[id number]//6Active enoxaparin (Lovenox) 40 MG/0.4ML injection 1 (one) time each day at the same timeActive docusate sodium (Colace) 50 MG capsule Take 100 mg by mouth in the morning and 100 mg before bedtime.Active polyethylene glycol, PEG, 3350 (Glycolax) 17 GM/SCOOP powder Take 17 g by mouth DailyActive Alcohol Swabs (Alcohol Prep Pad) 70 % pads Indications:Second trimester ([facility]),13 weeks gestation of ([facility]),Multigravida of advanced maternal age in second trimester ([facility]), Gestational diabetes mellitus (GDM), antepartum, gestational diabetes method of control unspecified([facility]),Elevated glucose tolerance testApply 1 Pad topically Daily Use four times daily to check FSBS. 150 each tive Blood Glucose Monitoring Suppl ([employer] Glucometer) w/Device kit Indications:Second trimester ([facility]),13 weeks gestation of ([facility]),Multigravida of advanced maternal age in second trimester ([facility]), Gestational diabetes mellitus (GDM), antepartum, gestational diabetes method of control unspecified([facility]),Elevated glucose tolerance test1 kit Daily Use four [...] (GDM), antepartum, gestational diabetes method of control unspecified([facility])Take 3 tablets (1,500 mg) by mouth in the evening. Take with meals Do not crush, chew, or split. 90 tablet 5Active Enoxaparin Sodium (Lovenox) 40 MG/0.4ML solution prefilled syringe Indications:Anticoagulant long-term use,Antiphospholipid antibody positive, Antiphospholipid antibody syndrome ([facility])Inject 40 mg as directed Daily for 30 doses 12 mL Expired Active Problems ProblemNoted DateDiagnosed DateH/O loss01/05/2025Multigravida of advanced maternal age in second trimester ([facility])01/05/2025Thyroid lmzjkdh5201/05/2025 Referred otalgia of right ear11/19/2023LPRD (laryngopharyngeal reflux disease) 11/19/2023cute on chronic vesicular eczema of hands and feet11/15/2023lood pressure elevated without history of HTN11/15/2023MI 37.0-37.9, adult11/15/2023 Cold ptaahgdmtws83/18/2024eviated vbddug7711/15/2023ry mouth11/15/2023Elevated blood pressure ojgftrq8311/15/2023Environmental xqetxitsw79/18/2024H/O: tkbhfaegajzsyn50/18/2024History of ptvptf6711/15/2023History of cerebrovascular sybhnedw11/18/2024 Overview (11/15/2023): reported by pt - related to antiphospholipid syndrome History of COVID-19011/15/2023History of gestational fmxpyqed34/18/2024History of kidney bpyfsc5411/15/2023Hx of iron deficiency qrpbfb8211/15/2023Immunization not carried out because of patient oevokuif11/18/2024Iron xjxtzdgwuj74/18/2024 Irregular uterine fulmrcqo23/18/2024Morbid hvntmwm5711/15/2023Nasal polyps 11/15/2023Non-ouasgh7611/15/2023OSA (obstructive sleep apnea)11/15/2023aresthesia of bilateral legs11/15/2023re-leftqueh04/18/2024Right lower quadrant pain 4Right otitis koqiyaw5711/15/2023Salivary gland apibqxrn33/18/2024Snoring 11/15/2023bdominal pain06/12/2023cute bronchitis due to cielqdpvc60/13/2024 Lmireyq6906/12/2023ysfunction of eustachian tube06/12/20237293Aylwiji95/13/2024 Fakcesvxrmvw69/13/2024Inhalation icffho4506/12/2023Lactation problem ([facility]) 06/12/2023sychogenic nthwbuxrmadyqici72/13/2024Suspected severe acute respiratory syndrome coronavirus 2 (SARS-CoV-2) taygstqip75/13/2024Hypoglycemia 06/12/2023rimary hypercoagulable state ([facility])08/01/2022estational diabetes mellitus (GDM), antepartum ([facility])01/26/2022Genitourinary ikwlwuit85/22/2022 Muscle rmxdpkbhpqkfu31/22/2022nticoagulant long-term use02/22/2020 Cerebrovascular accident (CVA) due to stenosis of middle cerebral artery 02/22/2020Anemia complicating childbirth ([facility])01/16/2020First degree perineal laceration during delivery ([facility])01/16/2020Acute posthemorrhagic fqfldj1201/16/2020Other immediate hemorrhage ([facility])01/16/2020 Personal history of urinary (tract) mtktgfeasn34/18/2020Single live ([facility])01/15/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 ([facility])01/08/2020Pruritus, vyfdexwoxeb92/04/2020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)12/30/201932 weeks gestation of ([facility])11/28/2019Thrombocytopenia, cikfoapkfsy85/23/2020Other general symptoms and signs10/28/2019Urinary tract /18/2020 Nrzvwqbpjawt65/28/2020SVT (supraventricular tachycardia)08/26/2019 Antiphospholipid antibody syndrome ([facility])07/07/2019Other bacterial infections of unspecified site06/27/2019Less than 8 weeks gestation of ([facility]) 06/05/2019Encounter for supervision of normal , unspecified, first trimester ([facility])05/29/2019Cerebral infarction, iaqkvekfsgw95/17/2020 Deficiency of other specified B group /17/0337Rajegdodxyxa92/17/2020 Unspecified condition associated with female genital organs and menstrual cycle 05/09/2019Other specified noninflammatory disorders of vhcsib3602/21/2019Frequency of oltcazujrul81/23/2019Unspecified ovarian cyst, right side02/06/2019 Mniwlorrurv69/09/2019Coagulation defect, unspecified ([facility])02/05/2019 Dizziness and uqvrzydou89/09/2019Long term (current) use of 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/rpafnagfoxsry18/09/2019Other acute postprocedural pain02/03/2019 Pelvic and perineal pain02/01/2019Syncope and nmexlzxv05/04/2019Raised antibody titer09/25/2017Migraine without aura and without status migrainosus, not acyqkpmkmob00/16/2018Antiphospholipid antibody txcnejgy27/14/2018Fatigue 12/29/2016Idiopathic progressive pccvxkbxab23/01/2017Pain in joint12/29/2016 Estimated Date of EnqjqoqzMqmystabTcr39/05/2026Based on last menstrual period of 07/28/2024 Encounters DateTypeDepartmentCare XaysKnyzotlfpea88/27/2025 9:00 AM EDTRoutine [facility] [address] [place] [address] Mya Herrmann, DO Third trimester ([facility]); 30 weeks gestation of ([facility])02/23/2025amboo [place] [address] Mya Herrmann, DO 02/20/2025linisync Result Encounter [facility] External Department Unsolicited Mya Herrmann, DO 02/20/2025linisync Result Encounter [facility] External Department Unsolicited Mya Herrmann, DO 02/17/2025bstract [facility] [address] [place] [address] Mya Herrmann, 02/09/2025 10:30 AM [place] [address] Mya Herrmann, DO Third trimester ([facility]); 28 weeks gestation of ([facility]); Anemia complicating childbirth ([facility]); Anticoagulant long-term use; Antiphospholipid antibody positive; Blood pressure elevated without history of HTN; Coagulation defect, unspecified ([facility])02/09/2025[place] [address] Mya Herrmann, DO 02/03/2025Patient Outreach [facility] [address] [place] [address] Petra Whitmore LPN 01/21/2025Telephone [facility] [place] [address] Celia Keith NP 01/19/2025 9:00 AM EDTRoutine [facility] [place] [address] Mya Herrmann, Second trimester ([facility]); 25 weeks gestation of ([facility]); Gestational diabetes mellitus (GDM), antepartum, gestational diabetes method of control unspecified([facility]); Anticoagulant long-term use; Antiphospholipid antibody positive; Antiphospholipid antibody syndrome ([facility])01/19/2025bstract NOMJaylan Borrero [facility] [place] [address] Mya Herrmann, 01/15/2025Telephone [facility] [place] [address] Lala Hess MA 01/06/2025Patient Outreach [facility] [address] [place] [address] Petra Whitmore LPN 01/05/2025 2:40 PM EDTRoutine [facility] [place] [address] Mya Herrmann, Second trimester ([facility]); 23 weeks gestation of ([facility]); Thyroid disease ; Gestational diabetes mellitus (GDM), antepartum, gestational diabetes method of control unspecified([facility]); Multigravida of advanced maternal age in second trimester ([facility]); H/O loss; Lightheaded; Njgjiafcq50/08/2025amboo flowsheet [facility] [address] Mya Herrmann, DO 12/26/2024bstract [facility] [address] [facility] [place] [place] [address] Mya Herrmann, DO 5Abstract [facility] [address] [facility] [place] [address] Mya Herrmann, DO 5Clinisync Result Encounter [facility] External Department Unsolicited Mya Herrmann, DO 5Clinisync Result Encounter [facility] External Department Unsolicited Mya Herrmann, DO 12/12/2024Telephone [facility] [address] [facility] [place] [address] Ariane Joseph, [employer] 12/12/2024Patient Outreach [facility] [address] [place] [address] Petra Whitmore LPN 12/11/2024 9:10 AM EDTRoutine [facility] [address] [place] [address] Mya Herrmann, DO 19 weeks gestation of ([facility]); Second trimester ([facility]); Thyroid disease ; Multigravida of advanced maternal age in second trimester ([facility]); Gestational diabetes mellitus (GDM), antepartum, gestational diabetes method of control unspecified([facility])12/11/2024linisync Result Encounter [facility] External Department Unsolicited Mya Herrmann, DO 12/11/2024amboo flowsheet [facility] [address] [facility] [place] [place] [address] Mya Herrmann, DO 12/08/2024Patient Outreach [facility] [address] [place] [address] Petra Whitmore, [employer] 12/04/2024bstract [facility] [address] [place] [address] Petra Whitmore LPN 11/27/2024Telephone [facility] [address] [facility] [address] Mya Herrmann DO from Last 3 Months Family History Medical HistoryRelationNameCommentsCerebrovascular AccidentFatherDiabetesFather Heart problemsMaternal GrandfatherMental illnessMaternal GrandmotherCancer Paternal GrandfatherDiabetesPaternal GrandfatherCancerPaternal Grandmother DiabetesPaternal GrandmotherDiabetesSisterRelationNameStatusCommentsFather Maternal GrandfatherMaternal GrandmotherPaternal GrandfatherPaternal Grandmother Sister Social History Tobacco UseTypesPacks/DayYears UsedDateSmoking Tobacco: NeverSmokeless Tobacco: Never Tobacco Cessation:Counseling Given: Not Answered Alcohol UseStandard Drinks/WeekCommentsNever0 (1 standard drink = 0.6 oz pure alcohol)PHQ-2AnswerDate RecordedPatient Health Questionnaire-2 Jzroo209 Estimated Date of OoqobykcIbfoyyvtYxp15/05/2026ased on last menstrual period of 07/28/2024Sex and Gender InformationValueDate RecordedSex Assigned at BirthNot on fileLegal JdpPhqyio03/15/2023 11:19 PM EDTGender IdentityNot on file Sexual OrientationNot on file Last Filed Vital Signs Vital SignReadingTime TakenCommentsBlood Zuchxygl492/7210 9:26 AM EDT Pulse--Temperature--Respiratory Rate--Oxygen Saturation--Inhaled Oxygen Concentration--Zqqult16.5 kg (210 lb 8 oz)02/23/2025 9:26 AM LVUSxfflj549.6 cm (5' 6 )11/19/2023 1:48 PM EDTBody Mass Index33.98011/19/2023 1:48 PM EDT Plan of Treatment DateTypeDepartmentCare Team (Latest Contact Info)Mdygnitewco28/11/2025 9:50 AM ESTRoutine [facility] [address] [place] [address] Mya Herrmann, DO [address] [place] [address] Health MaintenanceDue DateLast DoneCommentsMMR Vaccines (1 of 1 - Standard series)1986DTaP/Tdap/Td Vaccines (1 - Tdap)1992Varicella Vaccines (1 of 2 - 13+ 2-dose series)1998Hepatitis B Vaccines (1 of 3 - 19+ 3-dose series)2004HPV Vaccines (1 - 3-dose SCDM series)2012HPV/Cotest 10/22/2015COVID-19 Vaccine (1 - season)2024Influenza Vaccine (#1) 2024ervical Cancer Aoauplxui87/18/2025Pap SmearHIB VaccinesAged OutNo longer eligible based on patient's age to complete this topic Hepatitis A VaccinesAged OutNo longer eligible based on patient's age to complete this topicIPV VaccinesAged OutNo longer eligible based on patient's age to complete this topicMeningococcal B VaccineAged OutNo longer eligible based on patient's age to complete this topicMeningococcal VaccineAged OutNo longer eligible based on patient's age to complete this topicPneumococcal Vaccine: Pediatrics (0 to 5 Years) and At-Risk Patients (6 to 64 Years)Aged OutNo longer eligible based on patient's age to complete this topicRotavirus VaccinesAged Out No longer eligible based on patient's age to complete this topic Procedures Procedure NamePriorityDate/TimeAssociated DiagnosisCommentsPOCT URINALYSIS FHSFTTMUNxnccpd12/27/2025 9:38 AM EDT 30 weeks gestation of ([facility]) US OB IAPSMQ2202/20/2025 8:37 AM EDT US OB BPP W NON-UBDAWM1302/20/2025 8:37 AM EDT POCT URINALYSIS IJKAZNKXLnrldvy19/13/2025 10:55 AM EDT 28 weeks gestation of ([facility]) POCT URINALYSIS CAHTYAIDYqkxydh11/22/2025 9:33 AM EDT Second trimester ([facility]) POCT URINALYSIS HWPNRAOKCzqzshy40/08/2025 3:25 PM EDT Second trimester ([facility]) US OB CERVICAL YSBNCM1712/16/2024 8:41 PM EDT [facility] URINE MICROSCOPIC XVXQXzbiteg23/19/2025 6:32 PM EDT [facility] UA (CLEAN/CATCH) GUEST RELATIONS MANAGER/MICRO IF IND.Ajekrvu5012/16/2024 6:32 PM EDT ALL THYROID STIM EZVWYLCQjmeuub98/14/2025 10:50 AM EDT POCT URINALYSIS BFWLVPBJLbftofd90/14/2025 9:36 AM EDT 19 weeks gestation of ([facility]) Second trimester ([facility]) PAP SSWGTMxdivrm76/18/2022 12:00 AM EDTfrom Last 3 Months or Most Recently Relevant to Health Maintenance Results * POCT urinalysis dipstick manually resulted (02/23/2025 9:38 AM EDT) Only the most recent of5 resultswithin the time period is included. ComponentValueRef RangeTest MethodAnalysis TimePerformed AtPathologist Signature Color, UAYellowClarity, UAClearGlucose, UANegativeNegative - 2000(110) ++++ mg/dLBilirubin, UANegativeNegative - 4(70) +++ mg/dLKetones, UANegativeNegative - 160(16) ++++ mg/dLSpec Grav, UA1.0101 - 1.03Blood, UANegativeNegative - 50 Max/mcLpH, UA6.05 - 9Protein, UANegativeNegative - 2000(20) ++++ mg/dL Urobilinogen, UA0.20.2 - 12 mg/dLLeukocytes, UANegativeNegative - 500+++ John/mcL Nitrite, UANegativeNegative - PositiveSpecimen (Source)Anatomical Location / LateralityCollection Method / VolumeCollection TimeReceived DxzlTsnfe97/27/2025 9:38 AM EDT Narrative Authorizing ProviderResult TypeResult StatusCorey Montez DOPOINT OF CARE TEST ENTER/EDIT ORDERABLESFinal Result * US OB GROWTH (02/20/2025 8:37 AM EDT)Anatomical RegionLateralityModalityOther Specimen (Source)Anatomical Location / LateralityCollection Method / Volume Collection TimeReceived Time02/20/2025 8:37 AM EDT Narrative 02/20/2025 8:40 AM EDT [facility] ?[address] ? [place] [address] ? Ultrasound Report ? Signed ? Patient: JUSTICE,MADHU S ?MR#: [id number] ?? : 1985 ?Acct:[id number] ?? Age/Sex: 39 / F ?ADM Date: 02/19/25 ?? Loc: US ? Attending Dr: Mya Herrmann D.O. ? Ordering Physician: Mya Herrmann D.O. ?? Date of Service: 02/19/25 ?? Procedure(s): US OB growth ?? Accession Number(s): [id number] ? cc: Mya Herrmann D.O.; Physician,Non-Staff M.D. ? [facility] ? [address] ? [place] [address] ? Patient Name: ?? MADHU RENDON ? MRN: [id number] ? date: 1985 ?Sex: F ?? Assigned Patient Location: LAB ?? Current Patient Location: ? Accession/Order Number: [id number] ?? Exam Date: 02/19/2025 ??19:47 ?Report Date: [...] 1 oz. +/- 7 ounces (35%). ? US/US OB growth ?? IMPRESSION: ? SINGLE LIVE [...] Dictation Location: RADIO-PC-02 ? Electronically authenticated by: [id number] ??Y ?? Date: 02/20/2025 ??08:37 ? Dictated By: ?Pamela Pisano M.D. ? Signed By: ?02/20/25 0840 ? DD/ 0837 ? TD/TT: ? Backup Sawyer: Procedure Note Radiology, Radiologist, MD - 02/20/2025 [place] [address] Ultrasound Report Signed Patient: MADHU RENDON SMR#: [id number] : 1985Acct:[id number] Age/Sex: 39 / FADM Date: 02/19/25 Loc: US Attending Dr: Mya Herrmann D.O. Ordering Physician: Mya Herrmann D.O. Date of Service: 02/19/25 Procedure(s): US OB growth Accession Number(s): [id number] cc: Mya Herrmann D.O.; Physician,Non-Staff MGiovanni [facility] [place] [id number] Patient Name: MADHU RENDON MRN: [id number] date: 1985 Sex: F Assigned Patient Location: LAB Current Patient Location: Accession/Order Number: [id number] Exam Date: 02/19/2025 19:47 Report Date: 02/20/2025 08:37 At the request of: MYA HERMRANN DO Procedure: US OB BPP w non-stress [...] [Y] 2/2 SARAHI: 13.2 cm Total score: 8/8 IMPRESSION: NORMAL BIOPHYSICAL PROFILE Impression dictated by: Pamela Pisano M.D. 02/20/2025 8:37 AM Dictation Location: [place] [address] Electronically authenticated by: [id number] Y Date: 508:37 Dictated By: Pamela Pisano M.D. Signed By:02/20/25839 DD/ 6 TD/TT: Backup Sawyer: Authorizing ProviderResult TypeResult StatusCorey Montez DOCLINISYNC IMAGINGFinal Result * US OB BPP W NON-STRESS (02/20/2025 8:37 AM EDT)Anatomical Region LateralityModalityOtherSpecimen (Source)Anatomical Location / Laterality Collection Method / VolumeCollection TimeReceived Time02/20/2025 8:37 AM EDT Narrative 02/20/2025 8:40 AM EDT [facility] ?[address] ? [place] [address] ? Ultrasound Report ? Signed ? Patient: MADHU RENDON ?MR#: [id number] ?? : 1985 ?Acct:[id number] ?? Age/Sex: 39 / F ?ADM Date: 02/19/25 ?? Loc: US ? Attending Dr: Mya Herrmann D.O. ? Ordering Physician: Mya Herrmann D.O. ?? Date of Service: 02/19/25 ?? Procedure(s): US OB BPP w non-stress ?? Accession Number(s): [id number] ? cc: Mya Herrmann D.O.; Physician,Non-Staff M.D. ? [facility] ? [address] ? [place] [address] ? Patient Name: ?? MADHU RENDON ? MRN: [facility]:[id number] ? date: 1985 ?Sex: F ?? Assigned Patient Location: LAB ?? Current Patient Location: ? Accession/Order Number: [id number] ?? Exam Date: 02/19/2025 ??19:47 ?Report Date: [...] 1 oz. +/- 7 ounces (35%). ? US/US OB BPP w non-stress ?? IMPRESSION: ? SINGLE LIVE INTRAUTERINE GESTATION [...] Dictation Location: RADIO-PC-02 ? Electronically authenticated by: [id number] ??Y ?? Date: 02/20/2025 ??08:37 ? Dictated By: ?Pamela Pisano M.D. ? Signed By: ?10//25 0840 ? DD/ 0837 ? TD/TT: ? Backup Sawyer: Procedure Note Radiology, Radiologist, - 02/20/2025 [place] [address] Ultrasound Report Signed Patient: MADHU RENDON SMR#: [id number] : 1985Acct:[id number] Age/Sex: 39 / FADM Date: 02/19/25 Loc: US Attending Dr: Mya Herrmann D.O. Ordering Physician: Mya Herrmann D.O. Date of Service: 02/19/25 Procedure(s): US OB BPP w non-stress Accession Number(s): [id number] cc: Mya Herrmann D.O.; Physician,Non-Staff M.Ashvin [facility] [place] [id number] Patient Name: MADHU RENDON MRN: [id number] date: 1985 Sex: F Assigned Patient Location: LAB Current Patient Location: Accession/Order Number: [id number] Exam Date: 02/19/2025 19:47 Report Date: 02/20/2025 [...] oz. +/- 7 ounces (35%). US/US OB BPP w non-stress IMPRESSION: SINGLE LIVE INTRAUTERINE GESTATION WITH ULTRASOUND [...] [Y] 2/2 SARAHI: 13.2 cm Total score: 8/8 IMPRESSION: NORMAL BIOPHYSICAL PROFILE Impression dictated by: Pamela Pisano M.D. 02/20/2025 8:37 AM Dictation Location: [place] [address] Electronically authenticated by: [id number] Y Date: 508:37 Dictated By: Pamela Pisano M.D. Signed By:02/20/25 0840 DD/ TD/TT: Backup Sawyer: Authorizing ProviderResult TypeResult StatusCorey Montez DOCLINISYNC IMAGINGFinal Result * US OB CERVICAL LENGTH (12/16/2024 8:41 PM EDT)Anatomical RegionLaterality ModalityOtherSpecimen (Source)Anatomical Location / LateralityCollection Method / VolumeCollection TimeReceived Time12/16/2024 8:41 PM EDT Narrative 12/16/2024 8:43 PM EDT [facility] ?[address] ? [place] [address] ? Ultrasound Report ? Signed ? Patient: MADHU RENDON ?MR#: [id number] ?? : 1985 ?Acct:[id number] ?? Age/Sex: 39 / F ?ADM Date: ?? Loc: [facility] ??251-1 ? Attending Dr: Mya Herrmann D.O. ? Ordering Physician: Mya Herrmann D.O. ?? Date of Service: 12/16/24 ?? Procedure(s): US OB cervical length ?? Accession Number(s): [id number] ? cc: Mya Herrmann D.O.; PENELOPE CASAS ? [facility] ? [address] ? [place] [address] ? Patient Name: ?? MADHU RENDON ? MRN: [facility]:[id number] ? date: 1985 ?Sex: F ?? Assigned Patient Location: [facility] ?? Current Patient Location: ? Accession/Order Number: [id number] ?? Exam Date: 12/16/2024 ??20:39 ?Report Date: [...] M.D. ??12/16/2024 8:41 PM ? Dictation Location: [facility]--20 ? Electronically authenticated by: [id number] ??Y ?? Date: 12/16/2024 ??20:41 ? Dictated By: ?Robert Beltrán D.O. ? Signed By: ?12/16/242042 ? DD/ 40 ? TD/TT: ? Backup Sawyer: Procedure Note Radiology, Radiologist, - 12/16/2024 [place] [address] Ultrasound Report Signed Patient: MADHU RENDON [facility]#: [id number] : 1985Acct:[id number] Age/Sex: 39 / FADM Date: Loc: [facility] 251-[address]: Mya Herrmann D.O. Ordering Physician: Mya Herrmann D.O. Date of Service: 12/16/24 Procedure(s): US OB cervical length Accession Number(s): [id number] cc: Mya Herrmann D.O.; PENELOPE CASAS [place] [id number] Patient Name: MADHU RENDON MRN: [id number] date: 1985 Sex: F Assigned Patient Location: [facility] Current Patient Location: Accession/Order Number: [id number] Exam Date: 12/16/2024 20:39 Report Date: 12/16/2024 [...] Beltrán M.D. 12/16/2024 8:41 PM Dictation Location: [place] [address] Electronically authenticated by: [id number] Y Date: 0:41 Dictated By: Robert Beltrán D.O. Signed By:12/16/242042 DD/ 40 TD/TT: Backup Sawyer: Authorizing ProviderResult TypeResult StatusCorey Montez DOCLINISYNC IMAGINGFinal Result * (ABNORMAL) [facility] URINE MICROSCOPIC ONLY (12/16/2024 6:32 PM EDT)ComponentValue Ref RangeTest MethodAnalysis TimePerformed AtPathologist SignatureTBH WBC2-5 (A)NONE SEEN #/HPFTBHTBH RBC0-20 - 2 #/HPFTBHBACTERIA URINESMALL(A)NONE SEEN #/HPFTBHMUCUS URINENONE SEENNONE SEENTBHSQUAMOUS EPITHELIAL CELL URINEMANY(A) NONE/RARE #/LPFTBHCRYSTALS SEEN?None SeenNone Seen #/HPFTBHCAST SEEN?NONE SEEN NONE SEEN #/LPFTBHURINE CULTURE INDICATEDYES-LCTBHSpecimen (Source)Anatomical Location / LateralityCollection Method / VolumeCollection TimeReceived Time 12/16/2024 6:32 PM EDT12/16/2024 6:40 PM EDT Narrative [facility] - 12/16/2024 7:09 PM EDT Authorizing ProviderResult TypeResult StatusCorey Montez DOCLINISYNCFinal Result Performing OrganizationAddressCity/State/ZIP CodePhone Number [facility] * (ABNORMAL) [facility] UA (CLEAN/CATCH) GUEST RELATIONS MANAGER/MICRO IF IND. (12/16/2024 6:32 PM EDT) ComponentValueRef RangeTest MethodAnalysis TimePerformed AtPathologist SignatureCOLOR URINELT. YELLOWYELLOWTBHCLARITY URINECLEARCLEARTBHSPECIFIC GRAVITY URINE<=1.005(A)1.005 - 1.025TBHPH URINE6.05.0 - 9.0TBHPROTEIN URINE NEGATIVENEG/TRACE mg/dLTBHGLUCOSE URINE UANEGATIVENEGATIVE mg/dLTBHBILIRUBIN URINENEGATIVENEGATIVETBHKETONES URINENEGATIVENEGATIVE mg/dLTBHBLOOD URINE NEGATIVENEGATIVETBHNITRITE URINENEGATIVENEGATIVETBHUROBILINOGEN URINE0.20.2 - 1.0 EU/dLTBHLEUKOCYTE ESTERASE URINESMALL(A)NEGATIVETBHURINE MICROSCOPIC INDICATEDYESTBHSpecimen (Source)Anatomical Location / LateralityCollection Method / VolumeCollection TimeReceived Time12/16/2024 6:32 PM EDT12/16/2024 6:40 PM EDT Narrative [facility] - 12/16/2024 7:09 PM EDT Authorizing ProviderResult TypeResult StatusCorey Montez DOCLINISYNCFinal Result Performing OrganizationAddressCity/State/ZIP CodePhone Number [facility] * ALL THYROID STIM HORMONE (12/11/2024 10:50 AM EDT)ComponentValueRef RangeTest MethodAnalysis TimePerformed AtPathologist SignatureTHYROID STIMULATING HORMONE1.5080.358 - 3.740 uIU/mLTBHSpecimen (Source)Anatomical Location / LateralityCollection Method / VolumeCollection TimeReceived Time12/11/2024 10:50 AM EDT12/11/2024 10:51 AM EDT Narrative [facility] - 12/11/2024 11:33 AM EDT Authorizing ProviderResult TypeResult StatusCorey Montez DOCLINISYNCFinal Result Performing OrganizationAddressCity/State/ZIP CodePhone Number [facility] * Pap Smear (02/14/2022 12:00 AM EDT)Specimen (Source)Anatomical Location / LateralityCollection Method / VolumeCollection TimeReceived TimeSwabCervical swab / Unknown Narrative Authorizing ProviderResult TypeResult StatusFazio Nurse Noms Bcp ObLAB CYTOLOGY ORDERABLESFinal ResultPerforming OrganizationAddressCity/State/ZIP CodePhone Number EXTERNAL LAB from Last 3 Months or Most Recently Relevant to Health Maintenance Insurance Care Teams Team MemberRelationshipSpecialtyStart DateEnd Date Penelope Casas MD [address] [place] [address] PCP - [facility]Broad[facility]s [facility] Centerly Medicine11/07/23
--- OUTSIDE RECORDS SUMMARY | 2025-02-26 19:15 | XMS_ITS | Encounter Summary ---
Author Organization [facility] Address [address] [facility] [place] [address] Care Team Providers Care Sales Program Manager Name Role Phone Evans Casas MD Primary Care Provider [phone] Encounter Details DateTypeDepartmentCare Team (Latest Contact Info)Wilyxxyttdq15/21/2025bstract NOMJaylan COLVIN [address] [place] [address] Wilton Herrmann DO [address] [place], [facility]11 Social History Tobacco UseTypesPacks/DayYears UsedDateSmoking Tobacco: NeverSmokeless Tobacco: NeverAlcohol UseStandard Drinks/WeekCommentsNever0 (1 standard drink = 0.6 oz pure alcohol)PHQ-2AnswerDate RecordedPatient Health Questionnaire-2 Score0 01/06/2025Estimated Date of BczjuivlYdzjoevcItl86/05/2026ased on last menstrual period of 07/28/2024Sex and Gender InformationValueDate RecordedSex Assigned at BirthNot on fileLegal EqoTtbnbq38/15/2023 11:19 PM EDTGender IdentityNot on fileSexual OrientationNot on filedocumented as of this encounter Plan of Treatment DateTypeDepartmentCare Team (Latest Contact Info)Waolfecxfcc53/11/2025 9:50 AM ESTRoutine NOMJaylan COLVIN [address] [facility] [place] [address] Wilton Herrmann [address] [place] [address] documented as of this encounter Visit Diagnoses Not on filedocumented in this encounter Care Teams Team MemberRelationshipSpecialtyStart DateEnd Date Evans Casas MD [address] [place] [address] PCP - GeneralFamily Medicine11/07/23documented as of this encounter
--- OUTSIDE RECORDS SUMMARY | 2025-02-26 19:15 | XMS_ITS | Encounter Summary ---
Author Organization [facility] Address [address] [facility] [place] [address] Care Team Providers Care Cash On Delivery Clerk Name Role Phone Evans Casas MD Primary Care Provider [phone] Encounter Details DateTypeDepartmentCare Team (Latest Contact Info)Oesupaephju86/27/2025amboo flowsheet [facility] [place] COLVIN [address] [place] [address] Wilton Herrmann DO [address] [place], [facility]11 Social History Tobacco UseTypesPacks/DayYears UsedDateSmoking Tobacco: NeverSmokeless Tobacco: NeverAlcohol UseStandard Drinks/WeekCommentsNever0 (1 standard drink = 0.6 oz pure alcohol)PHQ-2AnswerDate RecordedPatient Health Questionnaire-2 Score0 01/06/2025Estimated Date of LmkqakfuJhrekhtzEjm92/05/2026ased on last menstrual period of 07/28/2024Sex and Gender InformationValueDate RecordedSex Assigned at BirthNot on fileLegal PdqCdjmxj51/15/2023 11:19 PM EDTGender IdentityNot on fileSexual OrientationNot on filedocumented as of this encounter Plan of Treatment DateTypeDepartmentCare Team (Latest Contact Info)Omjbinwpxpx58/11/2025 9:50 AM ESTRoutine [facility] [place] COLVIN [address] [place] [address] Wilton Herrmann, [address] [place] [address] documented as of this encounter Visit Diagnoses Not on filedocumented in this encounter Care Teams Team MemberRelationshipSpecialtyStart DateEnd Date Evans Casas MD [address] [place] [address] PCP - GeneralFamily Medicine11/07/23documented as of this encounter
--- OUTSIDE RECORDS SUMMARY | 2025-02-26 19:15 | XMS_ITS | Encounter Summary ---
Author Organization [facility] Address [address] [facility] [place] [address] Care Team Providers Care Sequins Slinger Name Role Phone Evans Casas MD Primary Care Provider [phone] Encounter Details DateTypeDepartmentCare Team (Latest Contact Info)Pkepnnataer98/24/2025linisync Result Encounter [facility] External Department Unsolicited Mya Herrmann DO [address] [place] [address] Social History Tobacco UseTypesPacks/DayYears UsedDateSmoking Tobacco: NeverSmokeless Tobacco: NeverAlcohol UseStandard Drinks/WeekCommentsNever0 (1 standard drink = 0.6 oz pure alcohol)PHQ-2AnswerDate RecordedPatient Health Questionnaire-2 Score0 01/06/2025Estimated Date of MxnlqwksZkywadttJvf05/05/2026ased on last menstrual period of 07/28/2024Sex and Gender InformationValueDate RecordedSex Assigned at BirthNot on fileLegal MgnDtxkqm93/15/2023 11:19 PM EDTGender IdentityNot on fileSexual OrientationNot on filedocumented as of this encounter Plan of Treatment DateTypeDepartmentCare Team (Latest Contact Info)Rskcosefuzd46/11/2025 9:50 AM ESTRoutine [facility] [place] [facility] [address] [place] [id number] Mya Herrmann DO [address] [place] [address] documented as of this encounter Procedures Procedure NamePriorityDate/TimeAssociated DiagnosisCommentsUS OB BPP W NON-FDSQLV8702/20/2025 8:37 AM EDT documented in this encounter Results * US OB BPP W NON-STRESS (02/20/2025 8:37 AM EDT)Anatomical Region LateralityModalityOtherSpecimen (Source)Anatomical Location / Laterality Collection Method / VolumeCollection TimeReceived Time02/20/2025 8:37 AM EDT Narrative 02/20/2025 8:40 AM EDT [facility] ?[address] ? [place], [place] [address] ? Ultrasound Report ? Signed ? Patient: SANNA RENDON S ?MR#: [id number] ?? : 1985 ?Acct:[id number] ?? Age/Sex: 39 / F ?ADM Date: 02/19/25 ?? Loc: US ? Attending Dr: Mya Herrmann D.O. ? Ordering Physician: Mya Herrmann D.O. ?? Date of Service: 02/19/25 ?? Procedure(s): US OB BPP w non-stress ?? Accession Number(s): [id number] ? cc: Mya Herrmann D.O.; Physician,Non-Staff M.D. ? [facility] ? [address] [facility] ? [place] [address] ? Patient Name: ?? SANNA RENDON ? MRN: [facility]:[id number] ? date: 1985 ?Sex: F ?? Assigned Patient Location: LAB ?? Current Patient Location: ? Accession/Order Number: [id number] ?? Exam Date: 02/19/2025 ??19:47 ?Report Date: [...] M.D. ??02/20/2025 8:37 AM ? Dictation Location: [facility]--02 ? Electronically authenticated by: [id number] ??Y ?? Date: 02/20/2025 ??08:37 ? Dictated By: ?Pamela Pisano M.D. ? Signed By: ?02/20/25 0840 ? DD/ 0837 ? TD/TT: ? Director Of Early Childhood Education: Procedure Note Radiology, Radiologist, MD - 02/20/2025 [place] [address] Ultrasound Report Signed Patient: SANNA RENDON [facility]#: [id number] : 1985Acct:[id number] Age/Sex: 39 / FADM Date: 02/19/25 Loc: US Attending Dr: Mya Herrmann D.O. Ordering Physician: Mya Herrmann D.O. Date of Service: 02/19/25 Procedure(s): US OB BPP w non-stress Accession Number(s): [id number] cc: Mya Herrmann D.O.; Physician,Non-Staff M.[place] [address] Patient Name: SANNA RENDON MRN: [facility]:[id number] date: 1985 Sex: F Assigned Patient Location: LAB Current Patient Location: Accession/Order Number: [id number] Exam Date: 02/19/2025 19:47 Report Date: 02/20/2025 [...] Pisano M.D. 02/20/2025 8:37 AM Dictation Location: [place] [address] Electronically authenticated by: [id number] Y Date: 508:37 Dictated By: Pamela Pisano M.D. Signed By:02/20/25839 DD/ 6 TD/TT: Director Of Early Childhood Education: Authorizing ProviderResult TypeResult StatusCorey Montez DOCLINISYNC IMAGINGFinal Result documented in this encounter Visit Diagnoses Not on filedocumented in this encounter Care Teams Team MemberRelationshipSpecialtyStart DateEnd Date Evans Casas MD [address] [place] [address] PCP - GeneralFamily Medicine11/07/23documented as of this encounter
--- OUTSIDE RECORDS SUMMARY | 2025-02-26 19:15 | XMS_ITS | Encounter Summary ---
Author Organization [facility] Address [address] [facility] [place] [address] Care Team Providers Care Coil Connector Name Role Phone Penelope Casas MD Primary Care Provider [phone] Encounter Details DateTypeDepartmentCare Team (Latest Contact Info)Sodfvgowehd47/11/2025linisync Result Encounter [facility] External Department Unsolicited Mya Herrmann, DO [address] [facility] [address] [place], [place] [address] Social History Tobacco UseTypesPacks/DayYears UsedDateSmoking Tobacco: NeverSmokeless Tobacco: NeverAlcohol UseStandard Drinks/WeekCommentsNever0 (1 standard drink = 0.6 oz pure alcohol)PHQ-2AnswerDate RecordedPatient Health Questionnaire-2 Score0 01/06/2025CommentsYesSex and Gender InformationValueDate RecordedSex Assigned at BirthNot on fileLegal SvoEixhqy02/15/2023 11:19 PM EDTGender IdentityNot on fileSexual OrientationNot on filedocumented as of this encounter Functional Status * Over the past 2 weeks, how often have you been bothered by any of the following problems?QuestionAnswerDate of AssessmentAuthorLittle interest or pleasure in doing thingsNot at all01/06/2025 9:35 AM Petra Flores LPN Feeling down, depressed, or hopelessNot at all01/06/2025 9:35 AM Petra Flores LPNPatient Health Questionnaire-2 Hbkvn170 9:35 AM ePtra Flores LPN documented as of this encounter Plan of Treatment DateTypeDepartmentCare Team (Latest Contact Info)Lvgiewjuvzh38/11/2025 9:50 AM ESTRoutine [facility] [place] [facility] [address] [facility] [place] [address] Mya Herrmann, DO [address] [facility] [place] [address] documented as of this encounter Procedures Procedure NamePriorityDate/TimeAssociated DiagnosisCommentsUS OB LIMITED 1+ LWXQVCV5605/10/2024 9:26 AM EST SRMCOH PROTHROMBIN TIME INR W/O UZBWFlozoup79/11/2025 8:44 AM EST MHPT OKIKAWTQPVFjxtlsy30/11/2025 8:44 AM EST [facility] JGBENvbhydc40/11/2025 8:44 AM EST documented in this encounter Results * US OB limited 1+ fetuses (05/10/2024 9:26 AM EST)Anatomical RegionLaterality ModalityBodyUltrasoundSpecimen (Source)Anatomical Location / Laterality Collection Method / VolumeCollection TimeReceived Time05/10/2024 9:26 AM EST Narrative 05/10/2024 9:29 AM EST [facility] ?[address] ? [place] [address] ? Ultrasound Report ? Signed ? Patient: MADHU RENDON ?MR#: [id number] ?? : 1985 ?Acct:[id number] ?? Age/Sex: 38 / F ?ADM Date: ?? Loc: FBC ??258-1 ? Attending Dr: Mya Herrmann D.O. ? Ordering Physician: Mya Herrmann D.O. ?? Date of Service: 05/10/24 ?? Procedure(s): US OB limited ?? Accession Number(s): [id number] ? cc: Mya Herrmann D.O.; PENELOPE CASAS ? [facility] ? [address] ? [place] [address] ? Patient Name: ?? MADHU RENDON ? MRN: [facility]:[id number] ? date: 1985 ?Sex: F ?? Assigned Patient Location: [facility] ?? Current Patient Location: US ?? Accession/Order Number: [id number] ?? Exam Date: 05/10/2024 ??08:30 ?Report Date: 05/10/2024 ??09:26 ? At the request of: ?? MYA ??MONTEZ ? Procedure: ??US OB limited ? EXAM: US OB limited ? HISTORY: confirm demise ? COMPARISON: Ultrasound OB transvaginal 04/04/2024 ? TECHNIQUE: Transabdominal ultrasound ? FINDINGS: ?? pole: 6.3 cm, 12 weeks 5 days ?? Heart rate: Absent ?? Gestational sac: Present but irregular. ? GA by LMP: 14 weeks 4 days ?? KLAUDIA by LMP: 11/04/2024 ?? GA by US: 12 weeks 5 days ?? KLAUDIA by US: 11/17/2024 ? US/US OB limited ?? IMPRESSION: ? 1. Findings compatible with demise. ? Electronically authenticated by: PASCUAL ??JUDY ?? Date: 05/10/2024 ??09:26 ? Dictated By: ?Pascual Riley M.D. ? Signed By: ?05/10/2429 ? DD/ 5 ? TD/TT: ? Heat Treat Furnace Operator: Procedure Note Radiology, Radiologist, - 05/10/2024 [place] [address] Ultrasound Report Signed Patient: MADHU RENDON SMR#: [id number] : 1985Acct:[id number] Age/Sex: 38 / FADM Date: Loc: [facility] 258-[address]: Mya Herrmann D.O. Ordering Physician: Mya Herrmann D.O. Date of Service: 05/10/24 Procedure(s): US OB limited Accession Number(s): [id number] cc: Mya Herrmann D.O.; PENELOPE CASAS [address] [address] Patient Name: MADHU RENDON MRN: [id number] date: 1985 Sex: F Assigned Patient Location: [facility] Current Patient Location: Accession/Order Number: [id number] Exam Date: 05/10/2024 08:30 Report Date: 05/10/2024 [...] Riley M.D. Signed By:05/10/24928 DD/ 5 TD/TT: Heat Treat Furnace Operator: Authorizing ProviderResult TypeResult StatusCorecarmen Herrmann DOIMG OB US PROCEDURES Final Result * MHPT FIBRINOGEN (05/10/2024 8:44 AM EST)ComponentValueRef RangeTest Method Analysis TimePerformed AtPathologist ZclazqedmPIKCAWJRDN166741 - 400 mg/dLTBH Specimen (Source)Anatomical Location / LateralityCollection Method / Volume Collection TimeReceived Time05/10/2024 8:44 AM EST05/10/2024 8:52 AM EST Narrative [facility] - 05/10/2024 9:35 AM EST Authorizing ProviderResult TypeResult StatusMya Herrmann DOCLINISYNCFinal Result Performing OrganizationAddressCity/State/ZIP CodePhone Number [facility] TB * [facility] APTT (05/10/2024 8:44 AM EST)ComponentValueRef RangeTest MethodAnalysis TimePerformed AtPathologist SignaturePARTIAL THROMBOPLASTIN TIME28.522.3 - 36.2 secTBHSpecimen (Source)Anatomical Location / LateralityCollection Method / VolumeCollection TimeReceived Time05/10/2024 8:44 AM EST05/10/2024 8:52 AM EST Narrative [facility] - 05/10/2024 9:35 AM EST Authorizing ProviderResult TypeResult StatusCorey Montez DOCLINISYNCFinal Result Performing OrganizationAddressCity/State/ZIP CodePhone Number [facility] * SRMCOH PROTHROMBIN TIME INR W/O COUM (05/10/2024 8:44 AM EST)ComponentValueRef RangeTest MethodAnalysis TimePerformed AtPathologist SignaturePROTHROMBIN TIME 10.39.0 - 11.6 secTBHTBH INR0.97TBHComment: DESIRED INR: 2.0-3.0 CONDITIONS NOT LISTED BELOW 2.5-3.5 FOR PROSTHETIC HEART VALVE REPLACEMENT 2.5-3.5 RECURRENT THROMBOSIS Specimen (Source)Anatomical Location / LateralityCollection Method / Volume Collection TimeReceived Time05/10/2024 8:44 AM EST05/10/2024 8:52 AM EST Narrative [facility] - 05/10/2024 9:35 AM EST Authorizing ProviderResult TypeResult StatusCorey Montez DOCLINISYNCFinal Result Performing OrganizationAddressCity/State/ZIP CodePhone Number [facility] documented in this encounter Visit Diagnoses Not on filedocumented in this encounter Care Teams Team MemberRelationshipSpecialtyStart DateEnd Date Penelope Casas MD [address] [place] [address] PCP - GeneralFamily Medicine11/07/23documented as of this encounter
--- OUTSIDE RECORDS SUMMARY | 2025-02-26 19:15 | XMS_ITS | Encounter Summary ---
Author Organization [facility] tem Address [id number] [address] [place] [address] Care Team Providers Care Armed Security Guard Name Role Phone Evans Casas DO Primary Care Provider [phone] Encounter Details DateTypeDepartmentCare Team (Latest Contact Info)Syubekhelxi77/20/2025Travel Social History Tobacco UseTypesPacks/DayYears UsedDateSmoking Tobacco: NeverSmokeless Tobacco: NeverAlcohol UseStandard Drinks/WeekCommentsNot Currently0 (1 standard drink = 0.6 oz pure alcohol)ChildcareAnswerDate RiyibhvkAaccraosrMyzqckx00/31/2019 EmploymentAnswerDate MriklbraEpbgrcjyyuPyhalvg54/31/2019Hunger ScreeningAnswer Date RecordedWithin the past 12 months we worried whether our food would run out before we got money to buy more.Never True01/01/2025Within the past 12 months the food we bought just didn't last and we didn't have money to get more.Never True01/01/2025Purpose - LifeAnswerDate RecordedPurpose and direction in life Jlfzlcj19/11/2021Estimated Date of NptmqwcuAqesvvrmZnr64/05/2026Based on last menstrual period of 07/28/2024Sex and Gender InformationValueDate Recorded Sex Assigned at BirthNot on fileLegal QppOmjcqi98/31/2019 12:25 PM EDTGender IdentityNot on fileSexual OrientationNot on filedocumented as of this encounter Plan of Treatment DateTypeDepartmentCare Team (Latest Contact Info)Zurbrziemfe66/11/2025 8:00 AM ESTTelemedicine Maternal- Medicine at [facility] [address] [place] [address] Sana Palma MD [address] [place] [address] 03/17/2025 8:30 AM ESTTelemedicine [facility] Rheumatology, A Department of [address] [address] Sam Callahan MD [address] [address] documented as of this encounter Visit Diagnoses Not on filedocumented in this encounter Care Teams Team MemberRelationshipSpecialtyStart DateEnd Date Evans Casas DO PCP - GeneralFamily Medicine07/07/19documented as of this encounter
--- OUTSIDE RECORDS SUMMARY | 2025-02-26 19:16 | XMS_ITS | Encounter Summary ---
Author Organization [facility] tem Address [id number] [address] [place] [address] Care Team Providers Care Aircraft Engineer Name Role Phone Augusto Evans Tony DO Primary Care Provider [phone] Encounter Details DateTypeDepartmentCare Team (Latest Contact Info)Cpbshuatvrr74/23/2025Orders Only [facility] Rheumatology, A Department of [address] [address] Ref Prov, [place] [address] Social History Tobacco UseTypesPacks/DayYears UsedDateSmoking Tobacco: NeverSmokeless Tobacco: NeverAlcohol UseStandard Drinks/WeekCommentsNot Currently0 (1 standard drink = 0.6 oz pure alcohol)ChildcareAnswerDate FkmegkpsHdajgirglQmiwfua48/31/2019 EmploymentAnswerDate MomaqsqtKvjcjryogkZwnyzld48/31/2019Hunger ScreeningAnswer Date RecordedWithin the past 12 months we worried whether our food would run out before we got money to buy more.Never True01/01/2025Within the past 12 months the food we bought just didn't last and we didn't have money to get more.Never True01/01/2025Purpose - LifeAnswerDate RecordedPurpose and direction in life Yaasjuu99/11/2021Estimated Date of PkqrrebsTldkhzheAjf97/05/2026Based on last menstrual period of 07/28/2024Sex and Gender InformationValueDate Recorded Sex Assigned at BirthNot on fileLegal QrfStjcue59/31/2019 12:25 PM EDTGender IdentityNot on fileSexual OrientationNot on filedocumented as of this encounter Plan of Treatment DateTypeDepartmentCare Team (Latest Contact Info)Rlzdqiifdxl49/11/2025 8:00 AM ESTTelemedicine Maternal- Medicine at [facility] [address] [place] [address] Sana Palma MD [address] [place] [address] 03/17/2025 8:30 AM ESTTelemedicine [facility] Rhe[facility], A Department of [address] [address] Sam Callahan MD [address] [address] documented as of this encounter Procedures Procedure NamePriorityDate/TimeAssociated DiagnosisCommentsEXTERNAL LAB ORDERS / KYIEJOZFjynbgl17/23/2025 3:15 PM EDTEXTERNAL LAB ORDERS / RESULTSRoutine 02/19/2025 3:13 PM EDTdocumented in this encounter Results * External Lab Orders / Results (02/19/2025 3:15 PM EDT) Narrative Authorizing ProviderResult TypeResult StatusNot In System Ref ProvLAB ORDERABLES Final ResultPerforming OrganizationAddressCity/State/ZIP CodePhone Number MANUALLY TRANSCRIBED RESULTS * External Lab Orders / Results (02/19/2025 3:13 PM EDT) Narrative Authorizing ProviderResult TypeResult StatusNot In System Ref ProvLAB ORDERABLES Final Result documented in this encounter Visit Diagnoses Not on filedocumented in this encounter Care Teams Team MemberRelationshipSpecialtyStart DateEnd Date Evans Casas DO PCP - GeneralFamily Medicine07/07/19documented as of this encounter
--- OUTSIDE RECORDS SUMMARY | 2025-02-26 19:16 | XMS_ITS | Encounter Summary ---
Author Organization [facility] Address [address] [place] [address] Care Team Providers Care Neighborhood Conservation Officer Name Role Phone Penelope Casas MD Primary Care Provider [phone] Encounter Details DateTypeDepartmentCare Team (Latest Contact Info)Hymljwvfrbr27/11/2025linisync Result Encounter [facility] External Department Unsolicited Mya Herrmann, DO [address] [place], [place] [id number] Social History Tobacco UseTypesPacks/DayYears UsedDateSmoking Tobacco: NeverSmokeless Tobacco: NeverAlcohol UseStandard Drinks/WeekCommentsNever0 (1 standard drink = 0.6 oz pure alcohol)PHQ-2AnswerDate RecordedPatient Health Questionnaire-2 Score0 01/06/2025CommentsYesSex and Gender InformationValueDate RecordedSex Assigned at BirthNot on fileLegal QxhMyepfd81/15/2023 11:19 PM EDTGender IdentityNot on fileSexual OrientationNot on filedocumented as of this encounter Functional Status * Over the past 2 weeks, how often have you been bothered by any of the following problems?QuestionAnswerDate of AssessmentAuthorLittle interest or pleasure in doing thingsNot at all01/06/2025 9:35 AM Petra Flores LPN Feeling down, depressed, or hopelessNot at all01/06/2025 9:35 AM Petra Flores LPNPatient Health Questionnaire-2 Whdhe611 9:35 AM Petra Flores LPN documented as of this encounter Plan of Treatment DateTypeDepartmentCare Team (Latest Contact Info)Qxgvbryqxud66/11/2025 9:50 AM ESTRoutine [facility] [place] [facility] [address] [place] [address] Mya Herrmann, DO [address] [place] [address] documented as of this encounter Procedures Procedure NamePriorityDate/TimeAssociated DiagnosisCommentsUS SXSPTA8305/10/2024 4:02 PM EST PROTEIN S-KPRFZJSVjwuclf93/11/2025 8:44 AM EST PROTEIN C-CVPGZYCBDYZxhtmds83/11/2025 8:44 AM EST FACTOR V LEIDEN QQIXZNBUZloblkm19/11/2025 8:44 AM EST [facility] ANTITHROMBIN PWIKHPIFWzydtlo16/11/2025 8:44 AM EST METRO MYUEKYMJIWTWNdlxlxa10/11/2025 8:44 AM EST ALL MISCELLANEOUS LYVBXeceiox01/11/2025 8:44 AM EST ALL IMMUNOGLOBULIN KJldmmni58/11/2025 8:44 AM EST ALL IMMUNOGLOBULIN UHgjffwc08/11/2025 8:44 AM EST documented in this encounter Results * US PELVIS (05/10/2024 4:02 PM EST)Anatomical RegionLateralityModalityOther Specimen (Source)Anatomical Location / LateralityCollection Method / Volume Collection TimeReceived Time05/10/2024 4:02 PM EST Narrative 05/10/2024 4:04 PM EST [facility] ?[address] ? [place] [address] ? Ultrasound Report ? Signed ? Patient: JUSTICE,MADHU S ?MR#: [id number] ?? : 1985 ?Acct:[id number] ?? Age/Sex: 38 / F ?ADM Date: ?? Loc: [facility] ??258-1 ? Attending Dr: Mya Herrmann D.O. ? Ordering Physician: Mya Herrmann D.O. ?? Date of Service: 05/10/24 ?? Procedure(s): US pelvis ?? Accession Number(s): [id number] ? cc: Mya Herrmann D.O.; PENELOPE CASAS ? [facility] ? [address] ? [place] [address] ? Patient Name: ?? MADHU RENDON ? MRN: [facility]:[id number] ? date: 1985 ?Sex: F ?? Assigned Patient Location: [facility] ?? Current Patient Location: [facility] ?? Accession/Order Number: [id number] ?? Exam Date: 05/10/2024 ??14:36 ?Report Date: 05/10/2024 ??16:02 ? At the request of: ?? MYA ??MONTEZ ? Procedure: ??US pelvis ? EXAMINATION: US pelvis ? HISTORY: post delivery for demise induction ? COMPARISON: No relevant comparison available. ? TECHNIQUE: Transabdominal and/or transvaginal sonographic examination was ?? performed as indicated by examination type. ? FINDINGS: ?? UTERUS: No retained products of conception. ? US/US pelvis ?? IMPRESSION: ? 1. No retained products of conception. ? Electronically authenticated by: PASCUAL ??JUDY ?? Date: 05/10/2024 ??16:02 ? Dictated By: ?Pascual Riley M.D. ? Signed By: ?05/10/24 1604 ? DD/ 1602 ? TD/TT: ? Care Analyst: Procedure Note Radiology, Radiologist, MD - 05/10/2024 [place] [address] Ultrasound Report Signed Patient: MADHU RENDON [facility]#: [id number] : 1985Acct:[id number] Age/Sex: 38 / FADM Date: Loc: [facility] 258-[address]: Mya Herrmann D.O. Ordering Physician: Mya Herrmann D.O. Date of Service: 05/10/24 Procedure(s): US pelvis Accession Number(s): [id number] cc: Mya Herrmann D.O.; PENELOPE CASAS [place] [id number] Patient Name: MADHU RENDON MRN: [facility]:[id number] date: 1985 Sex: F Assigned Patient Location: [facility] Current Patient Location: [facility] Accession/Order Number: [id number] Exam Date: 05/10/2024 14:36 Report Date: 05/10/2024 [...] Pascual Riley M.D. Signed By:05/10/24 1604 DD/ 1602 TD/TT: Care Analyst: Authorizing ProviderResult TypeResult StatusCorey Montez DOCLINISYNC IMAGINGFinal Result * FACTOR V LEIDEN MUTATION (05/10/2024 8:44 AM EST)ComponentValueRef RangeTest MethodAnalysis TimePerformed AtPathologist SignatureTBH FACTOR V LEIDEN MUTATIONComment.TBHComment: Result: c.1601G>A (p.Gkq099Vuk) - Not Detected This result is not associated with an increased risk for venous thromboembolism. See Additional Clinical Information and Comments. Additional Clinical Information: Venous thromboembolism is a multifactorial disease influenced by genetic, environmental, and circumstantial risk factors. The c.1601G>A (p. Dle928Oiu) variant in the F5 gene, commonly referred [...] c.*97G>A variant and Factor V Leiden (PMID: 29892111). Additional risk factors include but are not [...] health care providers to discuss results at [phone] ([phone]). Test Details: Variant Analyzed: c.1601G>A (p. Bzw597Zco), referred to as Factor V Leiden Methods/Limitations: [...] developed and its performance characteristics determined by [facility] It has not been cleared or approved by the Food and Drug Administration. References: Jomar S, Loren AK, Das R, Solo WW, Jose JH; ACMG Professional Practice and Guidelines Committee. Addendum: [place] [employer] consensus statement on factor V Leiden mutation testing. Nisha Med. 2020Jul 02. doi: 10.1038/h76171-880-80423-o. PMID: 18116377. Naina POWERS. Factor V Leiden Thrombophilia. 1998September 10 (Updated 2017May 03). In: Emeterio EDWARDS, Radha HH, Clayton RA, et al., editors. Cassie(Spencer) (Internet). [place] ([place]): [facility]; 4120-3852. Available from: https://www.ncbi.nlm.nih.gov/books/XEH7073/ Hudson S, Loren AK, Trent X, Margarito B, Jo-Ann EB, Lena P, Rhiannon CS; [employer] Laboratory Vending Machine Assembler Committee. Venous thromboembolism laboratory testing (factor V Leiden and factor II c.*97G>A), 2018 update: a technical standard of the [place] [employer] and Genomics (ACMG). Nisha Med. 2018 Mar;20(12):6161-9614. doi: 10.1038/r03797-623-0651-x. Epub 2017Feb 01. PMID: 57654269. [facility] REVIEWED BYComment.TBHComment: Technical Component performed at [facility] Professional Component performed by: [facility] Rosa Isela Lee, Ph.D., [facility] Director, Molecular Genetics [address] [place] [address] Performed at: ??TG - [facility] [address] [place], [place] ??[id number] Computer Programmer Analyst: Kolton Storm [facility], Phone: ??[phone] Specimen (Source)Anatomical Location / LateralityCollection Method / Volume Collection TimeReceived Time05/10/2024 8:44 AM EST05/10/2024 8:52 AM EST Narrative CLINISYNC - 05/15/2024 2:08 PM EST Authorizing ProviderResult TypeResult StatusCorey Montez DOLAB BLOOD ORDERABLES Final ResultPerforming OrganizationAddressCity/State/ZIP CodePhone Number [facility] * ALL MISCELLANEOUS TEST (05/10/2024 8:44 AM EST)ComponentValueRef RangeTest MethodAnalysis TimePerformed AtPathologist SignatureMISCELLANEOUS TESTCOMMENT. TBHComment: Test Ordered: [id number] , ID Ab Cytomegalovirus (CMV) Ab, IgG ??6.20 ?[H ] U/mL ? CB ?? Reference Range: 0.00-0.59 Negative <0.60 ? Equivocal ?? 0.60 - 0.69 Positive >0.69 Cytomegalovirus (CMV) Ab, IgM <30.0 AU/mL CB ?? Reference Range: 0.0-29.9 Negative <30.0 ?Equivocal ??30.0 - 34.9 Positive >34.9 A positive result is generally indicative of acute infection, reactivation or persistent IgM production. Toxoplasma gondii Ab,IgG <3.0 IU/mL CB ?? Reference Range: 0.0-7.1 Negative <7.2 ? Equivocal ??7.2 - 8.7 Positive >8.7 Toxoplasma gondii Ab,IgM <3.0 AU/mL CB ?? Reference Range: 0.0-7.9 Negative <8.0 ? Equivocal ?8.0 - 9.9 Positive >9.9 Comments ? Comment ? CB ?? Reference Range: . No serological evidence of infection with Toxoplasma. If symptoms persist, submit a new specimen after three weeks. Parvovirus B19, IgG ?1.3 ? [H ] index ?BN ?? Reference Range: 0.0-0.8 Negative <0.9 ? Equivocal ??0.9 - 1.1 Positive >1.1 Parvovirus B19, IgM ?0.1 ?index ?BN ?? Reference Range: 0.0-0.8 Negative <0.9 ? Equivocal ??0.9 - 1.1 Positive >1.1 Performed at: ??CB - [facility] [address] ??[id number] Computer Programmer Analyst: Dusty Miles PhD, Phone: ??[phone] Performed at: ??BN - [facility] ??[id number] Computer Programmer Analyst: China Ching MD, Phone: ??[phone] Specimen (Source)Anatomical Location / LateralityCollection Method / Volume Collection TimeReceived Time05/10/2024 8:44 AM EST05/10/2024 10:27 AM EST Narrative [facility]IN[facility] - 05/13/2024 3:11 PM EST [id number] , Infectious Disease Antibody Profile Authorizing ProviderResult TypeResult StatusCorey Montez DOCLINISYNCFinal Result Performing OrganizationAddressCity/State/[facility] CodePhone Number [facility] * (ABNORMAL) [facility] ANTITHROMBIN ACTIVITY (05/10/2024 8:44 AM EST)ComponentValueRef RangeTest MethodAnalysis TimePerformed AtPathologist SignatureTBH ANTITHROMBIN CAQLKTZW135(A)75 - 135 %TBHComment: An elevated antithrombin activity is of no known clinical significance. Direct Xa inhibitor anticoagulants such as rivaroxaban, apixaban and edoxaban will lead to spuriously elevated antithrombin activity levels possibly masking a deficiency. Performed at: ?? - [facility] [address] ??[id number] Computer Programmer Analyst: China Ching MD, Phone: ??[phone] Specimen (Source)Anatomical Location / LateralityCollection Method / Volume Collection TimeReceived Time05/10/2024 8:44 AM EST05/10/2024 8:52 AM EST Narrative CLINISYNC - 05/12/2024 2:08 PM EST Authorizing ProviderResult TypeResult StatusCorey Montez DOCLINISYNCFinal Result Performing OrganizationAddressty/State/ZIP CodePhone Number [facility] * PROTEIN S-ANTIGEN (05/10/2024 8:44 AM EST)ComponentValueRef RangeTest Method Analysis TimePerformed AtPathologist SignaturePROTEIN S, MRCLR7079 - 150 %TBH Comment: This test was developed and its performance characteristics determined by [facility]. It has not been cleared or approved by the Food and Drug Administration. PROTEIN S, BJBL49043 - 136 %TBHSpecimen (Source)Anatomical Location / Laterality Collection Method / VolumeCollection TimeReceived Time05/10/2024 8:44 AM EST 05/10/2024 9:48 AM EST Narrative CLINISYNC - 05/12/2024 2:08 PM EST Authorizing ProviderResult TypeResult StatusCorey Montez DOLAB BLOOD ORDERABLES Final ResultPerforming OrganizationAddressCity/State/[facility] CodePhone Number [facility] * PROTEIN C-FUNCTIONAL (05/10/2024 8:44 AM EST)ComponentValueRef RangeTest MethodAnalysis TimePerformed AtPathologist SignaturePROTEIN C-EGMJERKTEW61791 - 180 %TBHComment: Performed at: ?? - [facility] ??[id number] Computer Programmer Analyst: China Ching MD, Phone: ??[phone] Specimen (Source)Anatomical Location / LateralityCollection Method / Volume Collection TimeReceived Time05/10/2024 8:44 AM EST05/10/2024 9:48 AM EST Narrative CLINISYNC - 05/12/2024 2:08 PM EST Authorizing ProviderResult TypeResult StatusCorey Montez DOLAB BLOOD ORDERABLES Final ResultPerforming OrganizationAddBradford Regional Medical Centerty/State/[facility] CodePhone Number [facility] * METRO HOMOCYSTEINE (05/10/2024 8:44 AM EST)ComponentValueRef RangeTest Method Analysis TimePerformed AtPathologist SignatureHOMOCYST(E)INE5.80.0 - 14.5 umol/LTBHSpecimen (Source)Anatomical Location / LateralityCollection Method / VolumeCollection TimeReceived Time05/10/2024 8:44 AM EST05/10/2024 8:52 AM EST Narrative [facility]IN[facility] - 05/11/2024 7:08 AM EST Authorizing ProviderResult TypeResult StatusCorey Montez DOCLINISYNCFinal Result Performing OrganizationAddressCity/State/ZIP CodePhone Number [facility] * ALL IMMUNOGLOBULIN G (05/10/2024 8:44 AM EST)ComponentValueRef RangeTest MethodAnalysis TimePerformed AtPathologist SignatureTBH IMMUNOGLOBULIN G, QN 129901 - 1602 mg/dLTBHComment: Performed at: ??[address] ??[id number] Computer Programmer Analyst: Dusty Miles PhD, Phone: ??[phone] Specimen (Source)Anatomical Location / LateralityCollection Method / Volume Collection TimeReceived Time05/10/2024 8:44 AM EST05/10/2024 8:52 AM EST Narrative CLINISYNC - 05/11/2024 7:08 AM EST Authorizing ProviderResult TypeResult StatusCorey Montez DOCLINISYNCFinal Result Performing OrganizationAddressCity/State/ZIP CodePhone Number CLINIS[facility]NC TB * ALL IMMUNOGLOBULIN M (05/10/2024 8:44 AM EST)ComponentValueRef RangeTest MethodAnalysis TimePerformed AtPathologist SignatureTBH IMMUNOGLOBULIN M, Q177 26 - 217 mg/dLTBHComment: Performed at: ??[address] ??[id number] Computer Programmer Analyst: Dusty Miles PhD, Phone: ??[phone] Specimen (Source)Anatomical Location / LateralityCollection Method / Volume Collection TimeReceived Time05/10/2024 8:44 AM EST05/10/2024 8:52 AM EST Narrative CLINISYNC - 05/11/2024 7:08 AM EST Authorizing ProviderResult TypeResult StatusCorey Montez DOCLINISYNCFinal Result Performing OrganizationAddgila regional medical centerCity/State/ZIP CodePhone Number CLINIS[facility]NC [facility] documented in this encounter Visit Diagnoses Not on filedocumented in this encounter Care Teams Team MemberRelationshipSpecialtyStart DateEnd Date Penelope Casas MD [address] [place] [address] PCP - GeneralFamily Medicine11/07/23documented as of this encounter
--- OUTSIDE RECORDS SUMMARY | 2025-02-26 19:16 | XMS_ITS | Encounter Summary ---
Author Organization [facility] Address [address] [place] [address] Care Team Providers Care Enginehouse Brakeman Name Role Phone Penelope Casas MD Primary Care Provider [phone] Encounter Details DateTypeDepartmentCare Team (Latest Contact Info)Yywggsvajki48/07/2024Clinisync Result Encounter [facility] External Department Unsolicited Mya Herrmann, DO [address] [place], [place] [address] Social History Tobacco UseTypesPacks/DayYears UsedDateSmoking Tobacco: NeverSmokeless Tobacco: NeverAlcohol UseStandard Drinks/WeekCommentsNever0 (1 standard drink = 0.6 oz pure alcohol)PHQ-2AnswerDate RecordedPatient Health Questionnaire-2 Score0 01/06/2025CommentsYesSex and Gender InformationValueDate RecordedSex Assigned at BirthNot on fileLegal LsnLcizfb69/15/2023 11:19 PM EDTGender IdentityNot on fileSexual OrientationNot on filedocumented as of this encounter Functional Status * Over the past 2 weeks, how often have you been bothered by any of the following problems?QuestionAnswerDate of AssessmentAuthorLittle interest or pleasure in doing thingsNot at all01/06/2025 9:35 AM Petra Flores LPN Feeling down, depressed, or hopelessNot at all01/06/2025 9:35 AM Petra Flores LPNPatient Health Questionnaire-2 Vosrr093 9:35 AM Petra Flores LPN documented as of this encounter Plan of Treatment DateTypeDepartmentCare Team (Latest Contact Info)Lvxzzvehbgg62/11/2025 9:50 AM ESTRoutine [facility] [place] [facility] [address] [place] [address] Mya Herrmann, DO [address] [place] [address] documented as of this encounter Procedures Procedure NamePriorityDate/TimeAssociated DiagnosisCommentsUS OB TRANSVAGINAL 04/05/2024 4:39 AM EST documented in this encounter Results * US OB TRANSVAGINAL (04/05/2024 4:39 AM EST)Anatomical RegionLateralityModality OtherSpecimen (Source)Anatomical Location / LateralityCollection Method / VolumeCollection TimeReceived Time04/05/2024 4:39 AM EST Narrative 04/05/2024 4:42 AM EST [facility] ?[address] ? [place] [address] ? Ultrasound Report ? Signed ? Patient: Sanna Rendon ?MR#: [id number] ?? : 1985 ?Acct:[id number] ?? Age/Sex: 38 / F ?ADM Date: 04/04/24 ?? Loc: [facility] ? Attending Dr: Mya Herrmann D.O. ? Ordering Physician: Mya Herrmann D.O. ?? Date of Service: 04/04/24 ?? Procedure(s): US OB transvaginal ?? Accession Number(s): [id number] ? cc: Mya Herrmann D.O.; PENELOPE CASAS ? [facility] ? [address] ? [place] [address] ? Patient Name: ?? SANNA RENDON ? MRN: [id number] ? date: 1985 ?Sex: F ?? Assigned Patient Location: [facility] ?? Current Patient Location: ? Accession/Order Number: [id number] ?? Exam Date: 04/04/2024 ??09:43 ?Report Date: 04/05/2024 ??04:39 ? At the request of: ?? MYA ??SHILPA ? Procedure: ??US OB transvaginal ? EXAMINATION: US OB transvaginal ? HISTORY: MISSED MENSES ? COMPARISON: No relevant comparison available. ? FINDINGS: ? GESTATIONAL SAC: Present and normal appearing. ?? YOLK SAC: Present and normal appearing. ?? POLE: Present and normal appearing. ?? CARDIAC: Present. ? UTERUS: Normal size and appearance. ?? OVARIES: Right: Normal. Left: Normal. ?? CERVIX: 4.9 cm in length and closed. ?? CUL-DE-SAC: Normal. ?? OTHER: None. ? AGE BY LMP: 9 weeks 3 days ?? KLAUDIA BY LMP: 11/04/2024 ?? AGE BY US CRL: 9 weeks 3 days ?? KLAUDIA BY US CRL: 11/04/2024 ? US/US OB transvaginal ?? IMPRESSION: ? 1. Single live intrauterine . ? Electronically authenticated by: PASCUAL ??JUDY ?? Date: 04/05/2024 ??04:39 ? Dictated By: ?Pascual Riley M.D. ? Signed By: ?04/05/24441 ? DD/ 0439 ? TD/TT: ? Mold Inspector: Procedure Note Radiology, Radiologist, MD - 04/05/2024 The [place] [id number] Ultrasound Report Signed Patient: Sanna Rendon SMR#: [id number] : 1985Acct:[id number] Age/Sex: 38 / FADM Date: 04/04/24 Loc: [facility] Attending Dr: Mya Herrmann D.O. Ordering Physician: Mya Herrmann D.O. Date of Service: 04/04/24 Procedure(s): US OB transvaginal Accession Number(s): [id number] cc: Mya Hrermann D.O.; PENELOPE CASAS [address] [address] Patient Name: SANNA RENDON MRN: [id number] date: 1985 Sex: F Assigned Patient Location: [facility] Current Patient Location: Accession/Order Number: [id number] Exam Date: 04/04/2024 09:43 Report Date: 04/05/2024 [...] M.D. Signed By:04/05/24 0442 DD/ 0439 TD/TT: Mold Inspector: Authorizing ProviderResult TypeResult StatusCorecarmen Herrmann DOCLINISYNC IMAGINGFinal Result documented in this encounter Visit Diagnoses Not on filedocumented in this encounter Care Teams Team MemberRelationshipSpecialtyStart DateEnd Date Penelope Casas MD [address] [place] [address] PCP - GeneralFamily Medicine11/07/23documented as of this encounter
--- OUTSIDE RECORDS SUMMARY | 2025-02-26 19:16 | XMS_ITS | Clinical Summary ---
Author Organization [facility] Address [address] [place] [address] Care Team Providers Care Dairy Laboratory Technician Name Role Phone Jonny Wilcox MD Unavailable [phone] Cosmo Elliott MD Unavailable [phone] Davida Restrepo RN Unavailable [phone] Evans Casas DO Primary Care Provider [phone] Allergies Active AllergyReactionsCriticalityNoted DateCommentsCiprofloxacinOther: See Comments,Krfhfks1405/19/2019 Dizziness, weakness sweating Ciprofloxacin-FluocinoloneOther: See Crsydgyt93/20/2020 Dizziness, weakness sweating LactalbuminUnknown,GI XcqqwCja00/26/2018 Crampy and gassy LactoseGI Upset09/10/2017 Diarrhea MilkOther: See FeqlalguNxx80/26/2018 Crampy and gassy Diarrhea Other reaction(s): GI Upset Crampy and gassy Milk Containing Products (Dairy)Other: See NmekeujlUpy02/26/2018 Crampy and gassy Diarrhea Other reaction(s): GI Upset Crampy and gassy Seasonal AllergiesGI Upset,Other: See Gnxkeqvz21/06/2021 Medications MedicationSigDispense QuantityRefillsLast FilledStart DateEnd DateStatus multivitamin [...] MEAL(S)Active Active Problems ProblemNoted DateDiagnosed DateAntiphospholipid antibody yqvoxxut96/29/2025 Vitamin D yhovxlnmnn79/29/2025Primary hypercoagulable state08/01/2022VA, old, speech/language qyoqhuw0508/01/2022Iron deficiency anemia secondary to blood loss (chronic)03/27/2022Iron deficiency anemia of wawyxseei42/28/2022nti-cardiolipin antibody oocnoqdd34/29/2018Migraine with aura and without status migrainosus, not kxppbrloodp40/16/2018Antiphospholipid antibody owzirsag42/14/2018Fatigue 12/29/2016Pain in joint12/29/2016Estimated Date of DeliveryCommentsYes 07/28/2024 Encounters DateTypeDepartmentCare BxivAyhvogoofvk04/02/2025Telephone Hematology/Oncology [address] [place] [address] [place] [address] Rachael Johnson RN Rwhxfsi0901/26/2025Telephone Hematology/Oncology [address] [place] [address] [place] [address] Rachael Johnson RN 12/23/2024 11:30 AM EDTVisit (SP) Office Hematology/Oncology [address] [place] [address] [place] [address] 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, VICTOR HUGO.SAW BOSS Antiphospholipid antibody positive (Primary Dx); Iron deficiency [...] drink = 0.6 oz pure alcohol)PHQ-2AnswerDate RecordedPHQ-2 grxdu4104Area Deprivation Index AnswerDate RecordedNational Score (1-100), lower number is lower risk58 09/28/2022State Score (1-10), lower number is lower bbzl8483Data from: https://www.neighborhoodatlas.[facility].edu/. Last address used for wnnc[address]Estimated Date of DeliveryCommentsYes 07/28/2024Sex and Gender InformationValueDate RecordedSex Assigned at BirthNot on fileLegal OfnAqnzlf50/29/2018 10:06 AM ESTGender IdentityNot on fileSexual OrientationNot on fileOccupationIndustryJob Start DateJob End Datestay at home momNot on fileNot on fileNot on file Last Filed Vital Signs Vital SignReadingTime TakenCommentsBlood Heckttnu353/6908 11:34 AM EDT Aynno1719/26/2025 11:34 AM JRJLmskjhibnip94.4 ??C (97.6 ??F)12/23/2024 11:34 AM EDTRespiratory Xzsc577612/23/2024 11:34 AM EDTOxygen Wbtdtmbccv07%12/23/2024 11:34 AM EDTInhaled Oxygen Concentration--Cybxev45.4 kg (208 lb 1.8 oz)12/23/2024 11:34 AM CYETtfffe464.7 cm (5' 6.02 )12/23/2024 11:34 AM EDTBody Mass Index33.57 12/23/2024 11:34 AM EDT Plan of Treatment DateTypeDepartmentCare Team (Latest Contact Info)Uvvyfffjswh58/03/2025 11:15 AM ESTOffice [facility] [address] [place] [address] lab03/02/2025 11:30 AM ESTVisit (SP) Office Hematology/Oncology [address] [place], [place] [id number] 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, FINANCIAL ANALYSIS MANAGER.SAW BOSS [address] [place] [address] 2 month follow upHealth MaintenanceDue DateLast DoneCommentsAnxiety Screening 10/22/2003Depression Iubsegytm44/24/2004HIV Yhgbdkkqh70/24/2004Hepatitis C Kxyiiopga69/24/2004Hepatitis B Vaccine (1 of 3 - 19+ 3-dose series)2004HPV Vaccine (1 - 3-dose SCDM series)2012Cervical Cancer Lrmhzptoj70/07/2021 12/04/2017DTaP,Tdap,Td Vaccine (2 - Td or Tdap)Covid-19 Vaccine ( - season)2024Influenza Vaccine (#1) (Patient/Parent/Guardian Counseled and Declines)RSV Vaccine (1 - 1-dose 75+ series)2060 Procedures Procedure NamePriorityDate/TimeAssociated DiagnosisCommentsVITAMIN B12 BLOOD Nlrljqz8912/23/2024 11:28 AM EDT Primary hypercoagulable state (HCC) CVA, old, speech/language deficit Cerebral hyponatremia Personal history of TIA (transient ischemic attack) IRON + SGPTLlkihaw32/26/2025 11:28 AM EDT Primary hypercoagulable state (HCC) CVA, old, speech/language deficit Cerebral hyponatremia Personal history of TIA (transient ischemic attack) FERRITIN HVRMjuzwyh74/ 11:28 AM EDT Primary hypercoagulable state (HCC) CVA, old, speech/language deficit Cerebral hyponatremia Personal history of TIA (transient ischemic attack) COMPREHENSIVE METABOLIC QECQQRfumagj58/26/2025 11:28 AM EDT Primary hypercoagulable state (HCC) CVA, old, speech/language deficit Cerebral hyponatremia Personal history of TIA (transient ischemic attack) CBC + MUFUMyvtuxg03/26/2025 11:28 AM EDT Primary hypercoagulable state (HCC) CVA, old, speech/language deficit Cerebral hyponatremia Personal history of TIA (transient ischemic attack) from Last 3 Months Results * VITAMIN B12 (12/23/2024 11:28 AM EDT)ComponentValueRef RangeTest Method Analysis TimePerformed AtPathologist SignatureVitamin [id number] - 1,245 pg/mL 12/23/2024 7:00 PM [facility] LABSpecimen (Source) Anatomical Location / LateralityCollection Method / VolumeCollection Time Received TimeBloodBLOOD SPECIMEN / UnknownVenipuncture / Chqmpby4212/23/2024 11:28 AM EDT12/23/2024 11:28 AM EDT Narrative Authorizing ProviderResult TypeResult StatusHolly Arsh OCHOACNPLABORATORY Final ResultPerforming OrganizationAddressCity/State/ZIP CodePhone Number [facility] [address] * (ABNORMAL) IRON AND TIBC (12/23/2024 11:28 AM EDT)ComponentValueRef RangeTest MethodAnalysis TimePerformed AtPathologist YtpcwjyweGcom7257 - 186 ug/dL 12/23/2024 6:45 PM [facility] KLCUHCN767(H)232 - 386 ug/dL12/23/2024 6:45 PM [facility] LABTransferrin Ahwaikoorl11.315.0 - 57.0 %12/23/2024 6:45 PM [facility] LABSpecimen (Source)Anatomical Location / LateralityCollection Method / Volume Collection TimeReceived TimeBloodBLOOD SPECIMEN / UnknownVenipuncture / Zoyldwv2012/23/2024 11:28 AM EDT12/23/2024 11:28 AM EDT Narrative Authorizing ProviderResult TypeResult Status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 APRN.CNPLABORATORY Final ResultPerforming OrganizationAddressCity/State/ZIP CodePhone Number [facility] [address] [place] [address], * FERRITIN (12/23/2024 11:28 AM EDT)ComponentValueRef RangeTest MethodAnalysis TimePerformed AtPathologist NaqrmsmvkCmyaqopy86.514.7 - 205.1 ng/mL12/23/2024 7:00 PM [facility]TCPARK[facility] LABSpecimen (Source)Anatomical Location / LateralityCollection Method / VolumeCollection TimeReceived Time BloodBLOOD SPECIMEN / UnknownVenipuncture / Qqjdwij9112/23/2024 11:28 AM EDT 12/23/2024 11:28 AM EDT Narrative Authorizing ProviderResult TypeResult Chester Caban APRN.CNPLABORATORY Final ResultPerforming OrganizationAddressCity/State/ZIP CodePhone Number [facility] [address] [place] [address], * (ABNORMAL) COMPREHENSIVE METABOLIC PANEL (12/23/2024 11:28 AM EDT)Component ValueRef RangeTest MethodAnalysis TimePerformed AtPathologist Signature Protein, Total6.76.3 - 8.0 g/dL12/23/2024 11:56 AM [facility]TNOR[facility] LABAlbumin4.13.9 - 4.9 g/dL12/23/2024 11:56 AM EDTNORTHCOAST [facility] LABCalcium, Total9.58.5 - 10.2 mg/dL12/23/2024 11:56 AM EDTNORTHCST [facility] LABBilirubin, Total0.20.2 - 1.3 mg/dL 12/23/2024 11:56 AM EDTNORTTR[facility] LABAlkaline Gpgdzgevyrd4235 - 123 U/L12/23/2024 11:56 AM [facility] ZPIQEU58(L)13 - 35 U/L12/23/2024 11:56 AM [facility] OWDZAA362 - 38 U/L12/23/2024 11:56 AM [facility] UWEJwgnbpa857(H)74 - 99 mg/dL12/23/2024 11:56 AM [facility] LABComment: The [place] Diabetes Association (ADA) provides guidance for cutoff [...] Standards of Medical Care in Diabetes 2016, [place] Diabetes Association. Diabetes Care. 2016.39(Suppl 1). BUN77 - 21 mg/dL12/23/2024 11:56 AM [facility] Creatinine0.54(L)0.58 - 0.96 mg/dL12/23/2024 11:56 AM [facility] LHYTcsdlb454(L)136 - 144 mmol/L12/23/2024 11:56 AM [facility] LABPotassium4.03.7 - 5.1 mmol/L12/23/2024 11:[address] [facility] NMPHokkkjlf4917 - 107 mmol/L12/23/2024 11:56 AM [facility] HVGNP534(L)22 - 30 mmol/L12/23/2024 11:56 AM [facility] LABAnion Gzm198 - 15 mmol/L 12/23/2024 11:56 AM [facility] LABEstimated Glomerular Filtration Ybwk719>=60 mL/min/1.73m 12/23/2024 11:56 AM [facility] LABComment:Estimated Glomerular Filtration Rate (eGFR) is [...] VolumeCollection TimeReceived TimeBloodBLOOD SPECIMEN / UnknownVenipuncture / Oosmbxh7112/23/2024 11:28 AM EDT12/23/2024 11:28 AM EDT Narrative Authorizing ProviderResult TypeResult StatusHolly Arsh HATHAWAYN.CNPLABORATORY Final ResultPerforming OrganizationAddressCity/State/ZIP CodePhone Number [facility] [address] [place] [address] * (ABNORMAL) COMPLETE BLOOD COUNT AND DIFFERENTIAL (12/23/2024 11:28 AM EDT) ComponentValueRef RangeTest MethodAnalysis TimePerformed AtPathologist SignatureWBC8.553.70 - 11.00 k/uL12/23/2024 11:31 AM EDTHIGHL[facility] LABRBC3.80(L)3.90 - 5.20 m/uL12/23/2024 11:31 AM EDTNORTTR[facility] CDBRjfmeejvfy55.011.5 - 15.5 g/dL12/23/2024 11:31 AM [facility] FRVPoctfrdfif92.6(L)36.0 - 46.0 % 12/23/2024 11:31 AM [facility]TNORTTR[facility] HENDVV31.180.0 - 100.0 fL12/23/2024 11:31 AM [facility] QUUSIC35.6 26.0 - 34.0 pg12/23/2024 11:31 AM [facility] LABMCHC 34.730.5 - 36.0 g/dL12/23/2024 11:31 AM [facility] LABRDW-CV13.511.5 - 15.0 %12/23/2024 11:31 AM [facility] LABPlatelet Rbjju451138 - 400 k/uL12/23/2024 11:31 AM [facility] LABMPV9.79.0 - 12.7 fL12/23/2024 11:31 AM [facility] LABNeutrophils %65.1%12/23/2024 11:31 AM [facility] LABAbs Neut5.571.45 - 7.50 k/uL12/23/2024 11:31 AM EDT [facility] LABLymphocytes %28.7%12/23/2024 11:31 AM EDT [facility] LABAbs Lymph2.451.00 - 4.00 k/uL12/23/2024 11:31 AM [facility] LABMonocytes %5.1%12/23/2024 11:31 AM [facility] LABAbs Mono0.44<0.87 k/uL 12/23/2024 11:31 AM [facility] LABEosinophils %0.4% 12/23/2024 11:31 AM [facility] LABAbs Eosin0.03<0.46 k/uL12/23/2024 11:31 AM [facility] LABBasophils %0.2 %12/23/2024 11:31 AM [facility] LABAbs Baso<0.03 <0.11 k/uL12/23/2024 11:31 AM [facility] LABImmature Granulocytes %0.5%12/23/2024 11:31 AM [facility] LAB Abs Immature Gran0.04<0.10 k/uL12/23/2024 11:31 AM [facility] LABNRBC0.0/100 WBC12/23/2024 11:31 AM [facility] LABAbsolute nRBC<0.01<0.01 k/uL12/23/2024 11:31 AM [facility] LABDiff WetbOzaw36/26/2025 11:31 AM [facility] LABSpecimen (Source)Anatomical Location / Laterality Collection Method / VolumeCollection TimeReceived TimeBloodBLOOD SPECIMEN / UnknownVenipuncture / Omgbuls4212/23/2024 11:28 AM EDT12/23/2024 11:28 AM EDT Narrative Authorizing ProviderResult TypeResult StatusHolly Arsh FINANCIAL ANALYSIS MANAGER.CNPLABORATORY Final ResultPerforming OrganizationAddressCity/State/ZIP CodePhone Number [facility] [address] [place] [address] from Last 3 Months Insurance Care Teams Team MemberRelationshipSpecialtyStart DateEnd Date Evans Casas DO [address] [facility] [place] [address] PCP - GeneralFamily Bohhofft85/3/22 Jonny Wilcox MD [address] [place] [address] Primary Staff PhysicianCardiology07/16/18 [place] [address] [place] [address] PhysicianHematology/Oncology09/14/21 Davida Restrepo, RN [address] [place] [address] Specialty Care CoordinatorHematology/Oncology09/14/21
--- OUTSIDE RECORDS SUMMARY | 2025-02-26 19:16 | XMS_ITS ---
Author Organization [facility] Source Produ ction (ClinicalSummary Clone) Address Unknown Care Team Providers Care Engraver Pantograph Name Role Phone Unavailable Primary Care Physician Unavailab le Results * [UNITY] ANEUPLOIDY NIPT Performed by: [facility] Component Value Range Date Fraction 4.8% 10/27/2024 11:57 pm UTCRh(D) NIPTRhD NELPKGRJ48/30/2025 11:57 pm UTCSex Chromosome AneuploidyNOT BBOQFSCV66/30/2025 11:57 pm UTCMonosomy XLOW RISK <1 in , 11:57 pm UTCTrisomy 13LOW RISK <1 in , 11:57 pm UTCTrisomy 18LOW RISK <1 in , 11:57 pm UTCTrisomy 21LOW RISK <1 in , 11:57 pm UTCFetal DywZPZU0510/27/2024 11:57 pm UTCPregnancy RohwgbfsmZEXVSJQAY79/30/2025 11:57 pm UTCFor detailed report, see PDFSee PDF 10/27/2024 11:57 pm UTC10/27/2024 11:57 pm UTC Social History Observation Value Start Date End Date
--- OUTSIDE RECORDS SUMMARY | 2025-02-26 19:16 | XMS_ITS | Clinical Summary ---
Author Organization [facility] Address [address] [facility] [facility], [address] [place] [address] Care Team Providers Care Product Assurance Engineer Name Role Phone Evans Casas DO Primary Care Provider [phone] Allergies Active AllergyReactionsCriticalityNoted DateCommentsCiprofloxacinOther (See Comments)06/19/2019Ciprofloxacin-Fluocinolone PfOther [...] elevated without history of HTN12/11/2023ry mouth 12/11/2023Environmental foaytwzyg45/13/2024H/O: bvictvqvqhctqb52/13/2024History of vzzvlm6112/11/2023History of gestational /13/2024History of kidney uefrya1012/11/2023Hx of iron deficiency bdklno7312/11/2023Immunization not carried out because of patient yrsgzbgp84/13/2024Morbid ibfbpvj5612/11/2023Non-smoker 12/11/2023OSA (obstructive sleep apnea)12/11/2023ight otitis hyhguyp8512/11/2023 Abdominal pain06/12/2023cute bronchitis due to ysxrjmpdi94/13/2024nxiety 06/12/2023ysfunction of eustachian tube06/12/20237853Pwnvkyq15/13/2024Hematochezia 06/12/2023History of severe acute respiratory syndrome coronavirus 2 (SARS-CoV-2) mxmsivz3206/12/20233273Pvloesucdvwp74/13/2024Inhalation cglxal0706/12/2023 ruvauqk1806/12/2023sychogenic lthskbdjcoipftqf11/13/2024Suspected severe acute respiratory syndrome coronavirus 2 (SARS-CoV-2) bpqftjurr72/13/2024 Primary hypercoagulable state08/01/2022estational diabetes mellitus in , unspecified fvkwaiq5701/26/2022Genitourinary /22/2022Muscle xgymtvcyxfupc34/22/2022TIA (transient ischemic attack)06/16/2020erebrovascular accident (CVA) due to stenosis of middle cerebral aautnd7602/22/2020Anticoagulant long-term use02/22/2020Acute posthemorrhagic coucfw1001/16/202039 weeks gestation of anmrtixar74/18/2020Anemia complicating fjiirqnqkg57/18/2020Endocrine, nutritional and metabolic diseases complicating pnewaztujo87/18/2020First degree perineal laceration during poklaqrm20/18/2020Other immediate vhlpuooufr14/18/2020Personal history of transient ischemic attack (TIA), and cerebral infarction without residual xlqiokqq30/18/2020Personal history of urinary (tract) qldgoobsxo57/18/2020Single live birth01/15/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01/08/202038 weeks gestation of ercbrjpcl53/09/2020Pruritus, xdmalbxlqim43/04/202037 weeks gestation of /04/102892 weeks gestation of guukahrin69/01/2020Other speech and language deficits following cerebral kksfqynyqh04/01/2020Other diseases of the blood and blood-forming organs and certain disorders involving the immune mech anism complicating svegmveiin83/25/081230 weeks gestation of jyffcnpxa29/24/2020 34 weeks gestation of bftpbylwb23/18/554365 weeks gestation of 12/10/201932 weeks gestation of lsodhvwfd52/31/2020Thrombocytopenia, unspecified 11/20/2019Other general symptoms and signs10/28/2019Urinary tract infection, site not xxbtkdkuw53/18/9800Gazilrcaqjiw30/28/2020SVT (supraventricular tachycardia)08/26/2019Antiphospholipid antibody osnkaslu80/09/2020Other bacterial infections of unspecified site06/27/2019Less than 8 weeks gestation of gppykplvq71/06/2020Encounter for supervision of normal , unspecified, first wvvlnxgog02/30/9097Zpkqrsljuimf76/17/2020Cerebral infarction, unspecified 05/16/2019Paresthesia of skin05/16/2019Deficiency of other specified B group kryhxsgr47/17/2020Hypothyroidism, tlygmvrnbkt21/17/2020Unspecified condition associated with female genital organs and menstrual cycle05/09/2019Vomiting of , eyqyigrmmam55/06/2020Other specified noninflammatory disorders of knjwdg5102/21/2019Frequency of xchtyzyaohj51/23/2019Unspecified ovarian cyst, right side02/06/2019Coagulation defect, cwmpbkyrtuk45/09/2019Cervicalgia 02/05/2019Long term (current) use of 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/akgnlmtlnxvav18/09/2019 Dizziness and gufocbsjt75/09/2019Other acute postprocedural pain02/03/2019Pelvic and perineal pain02/01/2019Syncope and axhevcaf78/04/2019Anticardiolipin antibody belwklig85/29/2018Migraine without aura and without status migrainosus, not hkogfokloxa19/16/2018Antiphospholipid antibody duwctcbt62/14/2018Pain in joint12/29/20169204Vfbdpmp15/01/2017Idiopathic progressive eyzljkxurb74/01/2017 Resolved Problems ProblemNoted DateDiagnosed DateResolved VcboBvyzf91/ Encounters DateTypeDepartmentCare LdwvYixhkvlxmtl86/24/2025 2:30 PM EDTOffice Visit [facility] [address] [place] [address] [place] [address] Peng Osorio MD Antiphospholipid antibody syndrome (Primary [...] InformationValueDate RecordedSex Assigned at BirthNot on fileLegal JftBvflsk71/14/2017 2:04 PM EDT Gender IdentityNot on fileSexual OrientationNot on file Last Filed Vital Signs Vital SignReadingTime TakenCommentsBlood Xmanzhkr263/6409 2:40 PM EDT Znexv443701/21/2025 2:40 PM LMSJuffdbiqnsx98.2 ??C (97.2 ??F)02/09/2022 11:22 AM EDTRespiratory Syuf6065 11:22 AM EDTOxygen Edwtoxktvh48%10/04/2020 2:01 PM EDTInhaled Oxygen Concentration--Thjevu60.8 kg (209 lb)01/21/2025 2:40 PM EDT Hzfyiu515.6 cm (5' 6 )02/09/2022 11:22 AM EDTBody Mass Index33.7302/09/2022 11:22 AM EDT Plan of Treatment DateTypeDepartmentCare Team (Latest Contact Info)Bpncnpnbnkb86/25/2026 1:45 PM EDTOffice Visit [facility] [address] [place] [address] [place] [address] Peng Osorio MD [address] [place] [address] [place] [address] 6 [address] FUPHealth MaintenanceDue DateLast DoneCommentsDepression Snmxgs0310/21/1997 Varicella vaccine (1 of 2 - 13+ 2-dose series)1998Hepatitis C screen 10/22/2003Hepatitis B vaccine (1 of 3 - 19+ 3-dose series)2004Pap smear 2006Cervical cancer zeodvd3310/22/2015HPV (without or with Pap)10/22/2015 DTaP/Tdap/Td vaccine (2 [...] Procedure NamePriorityDate/TimeAssociated DiagnosisCommentsHIV-1,-2 W/REFLEX TO HIV-1 WESTERN NOQAAmukzsc29/01/2017 11:49 AM EDT Arthralgia, unspecified joint Fatigue, unspecified type Sensation disorder from Last 3 Months or Most Recently Relevant to Health Maintenance Results * Hiv-1,-2 W/Reflex To Hiv-1 Western Blot (12/29/2016 11:49 AM EDT)Component ValueRef RangeTest MethodAnalysis TimePerformed AtPathologist Signature HIV-1/HIV-2 ImKzlhypzeAmeshkyy44/03/2017 12:03 AM [facility] Comment: Based on the non-reactive anti-HIV (BRENDEN) screen, the HIV Western blot is not indicated and therefore not performed. INTERPRETIVE INFORMATION: HIV-1,-2 w/Reflex to HIV-1 Western Blot This assay should not be used for blood donor screening, associated re-entry protocols, or for screening Human Cells, Tissues and Cellular and Tissue-Based Products (HCT/P). Performed by [facility], [facility] [place] [address] [email or web address], Zhang Bledsoe MD - Lab. Director Specimen (Source)Anatomical Location / LateralityCollection Method / Volume Collection TimeReceived TimeBLOOD SPECIMEN / Hfmuahq2612/29/2016 11:49 AM EDT 12/29/2016 1:50 PM EDT Narrative Authorizing ProviderResult TypeResult StatusRitiki Monroe MDHEMATOLOGY ORDERABLES Final ResultPerforming OrganizationAddressCity/State/ZIP CodePhone Number [facility] [address] [place] [address], [facility] [phone] from Last 3 Months or Most Recently Relevant to Health Maintenance Insurance Care Teams Team MemberRelationshipSpecialtyStart DateEnd Date Evans Casas DO [address] [place] [address] PCP - GeneralFamily Medicine10/04/20
--- OUTSIDE RECORDS SUMMARY | 2025-02-26 19:16 | XMS_ITS | CCD ---
Author Organization [facility] Care Team Providers Care Sap Project Manager Name Role Phone CROW MONGE R Unavailable Unavailable BIBI CHRISTY Unavailable Unavailable ERIKA LONDON Attending Unavailab ERIKA Haddad Referring Unavailab Haseeb Chavez Attending Unavailable Crow Monge Referring Unavailable Humaira Gaviria MD Primary Care Provider [phone] Jonny Wilcox MD Unavailable Penelope CASAS Primary Care Physician Cheri Norwood Unavailable Unavailable Cosmo Elliott MD Unavailable [phone] Lauro LARSON, Davida Unavailable [phone] Penelope Casas Primary Care Provider [phone] PENELOPE CASAS Primary Care Unavailable TOD LOPEZ Referring Unavailable Humaira Gaviria MD Primary Care Provider Jonny Wilcox MD P Unavailable [phone] Cosmo Elliott MD R Unavailable [phone] Lauro RN, Davida Unavailable Penelope Casas DO Primary Care Provider Jonny Wilcox MD P Unavailable Cosmo Elliott MD R Unavailable Lauro LARSON, Davida Unavailable Penelope Casas DO Primary Care Provider [phone] DR WILTON HERRMANN Primary Care Unavailable DR [...] Unavailable MONTEZ, DR ROQUE Primary Care Unavailable BEDFORD, DR ANGIE Luna Consulting Unavailable MONTEZ, DR [...] Jonny Tsai Unavailable Lauro LARSON, Davida Unavailable [phone] Penelope Casas DO Primary Care Provider Penelope CASAS Admitting Unavailable KAPBEN, Penelope Tony Attending Unavailable KAPBEN, Penelope Tony Admitting Unavailable KAPBEN, Penelope Tony Attending Unavailable Benny Uribe Attending Unavailable NELI DUNHAM Attending Unavailabl e Hal, Taylor Varela Attending Unavailable HalTaylor Attending Unavailable KAPBEN, Penelope Tony Attending Unavailable [...] Saba Attending Unavailable Monica Saba Referring Unavailable Bneny Uribe Attending Unavailable Penelpoe CASAS Attending Unavailable Monica Saba Attending Unavailable [...] Unavailable Penelope Casas MD Primary Care Provider [phone] Montez DO, Wilton Attending Provider Montez, Wilton Attending Unavailable Monetz, Wilton Admitting Unavailable Gudimella, Anni Attending Unavailable Gudimella, Anni Attending Unavailable KAPLE, Penelope A Attending Unavailable KAPLE, Penelope A Attending Unavailable MONTEZ, Wilton R Admitting Unavailable MONTEZ, Wilton R Attending Unavailable KAPBEN, Penelope Tony Admitting Unavailable KAPLE, Penelope Tony Attending Unavailable KAPLE, Penelope Tony Attending Unavailable KAPLE, Penelope A [...] Admitting Unavailable Romulo Chiu Attending Unavailable KAPLE, Penelope Tony Attending Unavailable MONTEZ, Wilton R Attending Unavailable MONTEZ, Wilton R Admitting Unavailable JESSICA BACA Attending Unavailabl e Inez Wakefield Attending Unavailable KAPPenelope CONTRERAS Attending Unavailable Penelope Casas DO Primary Care Provider MONTEZ, Wilton R Attending Unavailable MONTEZ, Wilton R Admitting Unavailable MONTEZ, Wilton R Admitting Unavailable MONTEZ, Wilton R Attending Unavailable MONTEZ, Wilton R Attending Unavailable KAPPENELOPE CONTRERAS Primary Care Unavailable PRAVEEN, PENELOPE Tony Primary Care Unavailable ABHYANKAR, KRISTOFER Referring Unavailable ABHYANKAR, KRISTOFER Attending Unavailable KAPBEN, PENELOPE A Primary Care Unavailable ABHYANKAR, KRISTOFER Referring Unavailable KAPBEN, PENELOPE A Primary Care Unavailable KATHERINE NEGRETE Attending Unavailable ABHYANKAR, KRISTOFER Referring Unavailable KAPBEN, PENELOPE Tony Primary Care Unavailable KAPBEN, PENELOPE Tony Primary Care Unavailable KATHERINE NEGRETE Attending Unavailable ABHYANKAR, KRISTOFER Referring Unavailable MONTEZ, WILTON R Referring Unavailable KAPLE, PENELOPE A Primary Care Unavailable DOCHEVA, NIKOLINA P Attending Unavailable MONTEZ, WILTON R Referring Unavailable KAPLE, PENELOPE A Primary Care Unavailable MONTEZ, WILTON R Referring Unavailable KAPLE, PENELOPE A Primary Care Unavailable Kaple , Penelope Tony Primary Care Provider MONTEZ, Wilton R Admitting Unavailable MONTEZ, Wilton R Attending Unavailable MONTEZ, Wilton R Referring Unavailable CINDY MILLER Attending Unavailable MONTEZ, WILTON R Referring Unavailable KAPLE, PENELOPE A Primary Care Unavailable TORI, ALISA Attending Unavailable KAPLE, PENELOPE Tony Referring Unavailable KAPLE, PENELOPE Tony Primary Care Unavailable TORI, ALISA Attending Unavailable KAPLE, PENELOPE Tony Referring Unavailable KAPLE, PENELOPE Tony Primary Care Unavailable TORI, ALISA Attending Unavailable MONTEZ, WILTON R Referring Unavailable KAPLE, PENELOPE Tony Primary Care Unavailable LAVROXANA OSUNA Attending Unavailable KAPLE, PENELOPE Tony Referring Unavailable KAPLE, PENELOPE A Primary Care Unavailable DOCHEVA, NIKOLINA P Attending Unavailable MONTEZ, WILTON R Referring Unavailable KAPLE, PENELOPE A Primary Care Unavailable AMBATISAM Attending Unavailable DOCHEVA, NIKOLINA P Referring Unavailable KAPLE, PENELOPE A Primary Care Unavailable MONTEZ, WILTON Attending Unavailable MONTEZ, WILTON Attending Unavailable MONTEZ, WILTON Attending Unavailable MONTEZ, WILTON Attending Unavailable MONTEZ, WILTON Attending Unavailable MONTEZ, WILTON Attending Unavailable MONTEZ, WILTON Attending Unavailable MONTEZ, WILTON Attending Unavailable MONTEZ, WILTON Attending Unavailable MONTEZ, WILTON Attending Unavailable MONTEZ, WILTON Attending Unavailable Allergies Allergy ClassificationReported Allergen(s)Allergy TypeDate of OnsetReaction(s) Facility (20 sources)Ciprofloxacin; Translations: [ciprofloxacin]Drug Egomvcx74-48-9445 Other: See Comments, Unknown, Numbness and tingling sensation of skin (finding), Nausea (finding), Other (See Comments), GI [facility], [facility]: (20 sources)Ciprofloxacin / fluocinolone; Translations: [CIPROFLOXACIN-FLUOCINOLONE]Drug Datorxt29-00-2403Oczfi: See CommentsLouis [facility] Center (20 sources)cow milk allergenic extract; Translations: [MILK]Drug Allergy 20-56-8257Zycvj: See CommentsLouis Stokes [facility] Work Phone: (20 sources)Lactalbumin; Translations: [LACTALBUMIN]Drug Rtmqsms10-51-0302 Unknown, GI Upset, Other (See Comments)[facility] (20 sources)Lactose; Translations: [LACTOSE]Drug Nvyizse23-45-9420LT Upset, GI DisturbanceLouis [facility] (20 sources)MilkDrug Sgswzhi96-19-0179Hpdhs: See Comments, Other (See Comments) [facility] (6 sources)PenicillinsDrug Stlwjnh80-29-6733LrzwqtcLhfalteqv Clinic (20 sources)Seasonal allergy; Translations: [SEASONAL ALLERGIES]Allergy to lrvlunksm69-25-8754XV Upset, Other: See CommentsLouis Stokes [facility] Work Phone: (20 sources)Milk Products; Translations: [Milk Products]Drug allergyIllness (finding)[facility] (20 sources)Ciprofloxacin / fluocinoloneDrug Vquoedw12-73-3931Atpzt (See Comments)[employer] Work Phone: (1 source)Seasonal allergyPropensity to adverse reactions to sgobpbqto67-52-3845 Other (See Comments)[employer] Work Phone: (1 source)Milk-Related CompoundsPropensity to adverse reactions to drug 36-58-1810Rudin (See Comments)[employer] Work Phone: (2 sources)PenicillinsDrug Wpcoqns23-34-9364CwezamxChwkktrwg Clinic (1 source)CiprofloxacinDrug Iplsvxg17-62-7013YncPark[facility] (20 sources)Lactose (non-medical use)Propensity to adverse aeknqkuxi66-00-7829 [facility] (20 sources)Lactose (non-medical use)Drug Oclexye61-49-5831[facility] (20 sources)OctacosanolDrug Jaygicmafmn58-46-1402[facility] (20 sources)OtherAllergy to klnkuuaqi12-59-7433DvkgtCTYV Healthcare Work Phone: (3 sources)MILK CONTAINING PRODUCTS (DAIRY); Translations: [MILK CONTAINING PRODUCTS (DAIRY)]Propensity to adverse reactions to drug (disorder)05-25-2017 [facility] Repository Medications Current Medications MedicationDrug Class(es)DatesSig (Normalized)Sig (Original)acetaminophen 300 mg / codeine phosphate 30 mg oral tablet (1 source)Opioid AgonistStart: 28-35-3148lszkvgrxsupkm-codeine (TYLENOL #3) 300- 30 MG per tabletAlbuterol (Eqv-ProAir HFA) 90 mcg/inh inhalation aerosol (6 sources)Start: 86-57-4111oekf 2 puff(s) by inhalation every six hours Albuterol (Eqv-ProAir HFA) 90 mcg/inh inhalation aerosol 2 puff(s), Inhalation, q6hr, 1 EA, Refill(s) 5, [facility], 168, cm, 02/02/24 14:43:00 EDT, Height/Length Dosing, 101.1, kg, 02/02/24 14:43:00 EDT, Weight Dosing Start Date: 02/02/24 Status: Orderedazithromycin 250 mg oral tablet (20 sources)Macrolide AntimicrobialStart: 09-08-2024 End: 99-82-8630kiacptlsbceg (Zithromax Z-Jonny) 250 MG tablet Indications: 5 weeks gestation of ([facility]) As directed 6 tablet 09/08/2024 10/30/2024 Discontinued (Therapy completed)Start: 06-19-2024 End: 10-28-3417Jqnomwbga 250 mg Tab = 1 packet(s), Oral, As Directed, as directed on package labeling, X 5 day(s),# 6 tab(s), Refills(s) 1, Pharmacy: [facility], 168, cm, 06/09/24 14:03:00 EST, Height/Length Dosing, 98.4, kg, 06/19/24 16:19:00 EST, Weight Dosing Start Date: 06/19/24 Stop Date: 06/29/24 Status: OrderedStart: 04-21-2024 End: 56-08-6806lyutfmyiwuhl (Zithromax Z-Jonny) 250 MG tablet Indications: Upper respiratory tract infection, unspecified type As directed 6 tablet 04/21/2024 05/06/2024 Discontinuedazithromycin 250 mg Tab 5-day Dose Pack (Z-Jonny) (2 sources)Start: 02-02-2024 End: 50-31-3555nujzehnmdlbr 250 mg Tab 5-day Dose Pack (Z-Jonny) = 1 packet(s), Oral, As Directed, as directed on package labeling, X 5 day(s), # 6 tab(s), Refills(s) 0, Pharmacy: [facility], 168, cm, 02/02/24 14:43:00 EDT, Height/Length Dosing, 101.1, kg, 02/02/24 14:43:00 EDT, Weight Dosing Start Date:02/02/24 Stop Date: 02/07/24 Status: OrderedBlood Glucose Monitoring Suppl (D-Care Glucometer) w/Device kit (20 sources)Start: 10-30-2024 End: 14-48-5101Tfsit Glucose Monitoring Suppl (D-Care Glucometer) w/Device kit Indications: Second trimester ([facility]) , 13 weeks gestation of ([facility]) , Multigravida of advanced maternal age in second trimester ([facility]) , Gestational diabetes mellitus (GDM), antepartum, gestational diabetesmethod of control unspecified ([facility]) , Elevated glucose tolerance test 1 kit Daily Use four times daily to check FSBS. In the morning prior to breakfast & 1 hour after each meal for a total gp8wpxoe daily. 1 kit 10/30/2024 10/30/2025 Activeblood-glucose meter (BLOOD GLUCOSE MONITORING) kit (20 sources)blood-glucose meter (BLOOD GLUCOSE MONITORING) kit 1 each by other route in the morning. Use to check blood sugar 4 times daily . Activeblood- glucose sensor (FREESTYLE JENIFER 3 PLUS SENSOR) device (12 sources)Start: 07-85-2572njtg 2 doses by mouth onceblood-glucose sensor (FREESTYLE JENIFER 3 PLUS SENSOR) device Indications: Gestational diabetes mellit us (GDM) in second trimester controlled on oral hypoglycemic drug Wear for 15 days and change 2 each 6 12/26/2024 Activecephalexin 500 mg oral tablet (20 sources)Cephalosporin AntibacterialStart: 08-19-2021 End: 54-47-8157saui 1 tablet by mouth twice dailycephalexin 500 mg oral tablet 500 mg = 1 tab(s), Oral, BID, X 10 day(s), # 20 tab(s), Refills(s) 0,Pharmacy: [facility], 168, cm, 08/19/21 10:50:00 [...] suspension (2 sources)Corticosteroid, Quinolone AntimicrobialStart: 10-23-2023 End: 95-93-1452Poawizut 0.3%-0.1% Susp-Otic 4 drop(s), Otic, BID for 7 day(s), 7.5 mL, Refill(s) 0, [facility]/pharmacy #[id number], 168, cm, 10/23/23 16:55:00 EDT, Height/Length Dosing, 106.2, kg, 10/23/23 16:55:00 EDT, WeightDosing Start Date: 10/23/23 Stop Date: 10/30/23 Status: OrderedStart: 02-15-2023 End: 78-24-3773Mgdgfymv 0.3%-0.1% Susp-Otic 4 drop(s), Otic, BID for 7 day(s), 7.5 mL, Refill(s) 0, Only use if drainage or pain of ear shake well before using, [facility], 168, cm, 02/15/23 9:49:00 EDT,Height/Length Dosing, 108, kg, 02/15/23 9:49:00 EDT, Weight Dosing Start Date: 02/15/23 Stop Date: 02/22/23 Status: Ordereddocusate sodium 50 mg oral capsule (20 sources)take 2 capsules by mouth in the morningdocusate sodium (Colace) 50 MG capsule Take 100 mg by mouth in the morning and 100 mg before bedtime. Active take 1 capsule by mouth in the morningdocusate sodium (COLACE) 100 mg capsule Take 1 capsule (100 mg total) by mouth in the morning. Activedocusate sodium (COLACE PO) Take by mouth. Active0.4 ml enoxaparin sodium 100 mg/ml prefilled syringe (20 sources)Low Molecular Weight HeparinStart: 01-19-2025 End: 56-56-8318Yozvfygbsl Sodium (Lovenox) 40 MG/0.4ML solution prefilled syringe Indications: Anticoagulant long-term use , Antiphospholipid antibody positive , Antiphospholipid antibody syndrome ([facility]) Inject 40 mg as directed Daily for 30 doses 12 mL 3 01/19/2025 02/18/2025 ActiveStart: 01-09-2025 End: 10-36-9258walmwd 0.4 mL by subcutaneous injection onceenoxaparin (LOVENOX) 40 mg/0.4 mL syringe Indications: Antiphospholipid syndrome Inject 0.4 mL (40 mg total) under the skin Every 12 (twelve) hours. 24 mL 6 01/13/2025 ActiveStart: 05-03-2023 End: 07-11-8392ojncxvddhc (LOVENOX) 40 mg/0.4 mL Indications: Primary hypercoagulable state (HCC) , CVA, old, speech/language deficit , Cerebral hyponatremia INJECT 1 SYRINGE SUBCUTANEOUSLY EVERY 24 HOURS 90 mL 10/29/2024 ActiveStart: 04-06-2022 End: 67-89-2011mprcfyaaat (LOVENOX) 40 mg/0.4 mL Indications: Primary hypercoagulable state (HCC) , CVA, old, speech/language deficit , Cerebral hyponatremia INJECT THE CONTENTS OF ONE SYRINGE (0.4 ML) SUBCUTANEOUSLY EVERY 24 HOURS 90 mL 2 09/28/2022 ActiveStart: 09-06-2021 End: 90-87-1804ffhmyb 0.8 mL by subcutaneous injection twice dailyenoxaparin (LOVENOX) 80 mg/0.8 mL Indications: Primary hypercoagulable state (HCC) Inject 0.8 mL subcutaneously twice daily. 48 mL 5 09/06/2021 10/06/2021 ActiveStart: 04-07-2020 End: 67-64-9734ybznhh 0.4 mL by subcutaneous injection every twenty-four hours enoxaparin (LOVENOX) 40 mg/0.4 mL Indications: Primary hypercoagulable state (HCC) , CVA, old, speech/language deficit , Cerebral hyponatremia Inject 0.4 mL subcutaneously every 24 hours. 36 mL 0 12/30/2021 03/30/2022 Active End: 80-38-2205dzcxhc 40 mg by subcutaneous injection in the [...] enoxaparin (LOVENOX) 40 MG/0.4ML injection (1 source)Start: 89-08-0875ghqeghpelr (LOVENOX) 40 MG/0.4ML injection Inject 0.4 mLs into the skin daily 16 mL 1 02/20/2020 Activeenoxaparin (Lovenox) 40 MG/0.4ML injection (20 sources)enoxaparin (Lovenox) 40 MG/0.4ML injection 1 (one) time each day at the same time Activefamotidine 40 mg oral tablet (20 sources)Histamine-2 Receptor AntagonistStart: 67-81-5173iuzm 1 tablet by mouth once daily at bedtimePepcid 40 mg Tab 40 mg = 1 tab(s), Oral, Once a day (at bedtime), # 90 tab(s), Refills(s) 4, Pharmacy: [facility], 168, cm, 06/30/24 8:36:00 EST, Height/Length Dosing, 97.2, kg, 06/30/24 8:36:00 EST, Weight Dosing Start Date: 06/30/24 Status: Ordered Quantity: 90.0 Unit: tab(s) Repeat number: 5Start: 11-29-2023 End: 11-16-8473pqud 1 tablet by mouth once dailyfamotidine (PEPCID) 20 mg tablet Take 1 tablet by mouth once daily. To take prior to infusion 1 tablet 11/29/2023 10/28/2024 Discontinued (Discontinued by Patient)Start: 11-29-2023 End: 88-43-8476bragptrqte 20 mg injection (PEPCID)fluconazole 150 mg oral tablet (6 sources)Azole AntifungalStart: 53-28-8384Zmfjgmyn 150 mg Tab 150 mg = 1 tab(s), Oral, q7day, # 4 tab(s), Refills(s) 1, Pharmacy: [facility], 168, cm, 06/09/24 14:03:00 EST, Height/Length Dosing, 98.4, kg, 06/19/24 16:19:00 EST, Weight Dosing Start Date: 06/19/24 Status: Ordered Quantity: 4.0 Unit: tab(s) Repeat number: 2 Indication: Candidiasis, unspecifiedfluticasone propionate 0.05 mg/actuat metered dose nasal spray (20 sources)CorticosteroidStart: 11-20-2024 End: 74-12-4655bipd 1 spray(s) nasal route once dailyfluticasone (Flonase) 50 MCG/ACT nasal spray Indications: Sinus headache Administer 1 spray into each nostril Daily Shake gently. Before first use, prime pump. After use, clean tip and replace cap. 16 g 3 11/20/2024 11/20/2025 ActiveStart: 91-88-6011Rypgxud 0.05 mg/inh [place] 2 spray(s), Nasal, Daily, 16 gram, Refill(s) 11, each nostril, [facility]/pharmacy #[id number], 168, cm, 06/09/24 14:03:00 EST, Height/Length Dosing, 99.1, kg, 06/09/24 14:03:00 EST, Weight Dosing Start Date: 06/09/24 Status: Ordered Quantity: 16.0 Unit: g Repeat number: 12Start: 20-51-4680Cifqwiq 0.05 mg/inh [place] 2 spray(s), Nasal, Daily, 16 gram, Refill(s) 11, each nostril, [id number], 168, cm, 06/09/24 14:03:00 EST, Height/Length Dosing, 99.1, kg, 06/09/24 14:03:00 EST, Weight Dosing Start Date: 06/09/24 Status: OrderedStart: 97-93-3461Faqzlje 0.05 mg/inh [place] 2 spray(s), Nasal, Daily, 16 gram, Refill(s) 0, each nostril Start Date: 08/03/23 Status: Orderedisopropyl alcohol 0.7 ml/ml medicated pad (20 sources)Start: 40-77-6255Kjbefof Swabs (Alcohol Prep Pad) 70 % pads Indications: Second trimester ([facility]) , 13 weeks gestation of ([facility]) , Multigravida of advanced maternal age in second trimester ([facility]) , Gestational diabetes mellitus (GDM), antepartum, gestational diabetes method of control unspecified ([facility]) , Elevated glucose tolerance test Apply 1 Pad topically Daily Use four times daily to check FSBS. 150 each 3 10/30/2024 Activelevothyroxine sodium 0.025 mg oral tablet (20 sources)l-ThyroxineStart: 49-93-2429ruuutyhzhwpud 25 mcg (0.025 mg) Tab 25 mcg = 1 tab(s), Oral, Daily, Dr. Celaya, # 30 tab(s), Refills(s) 0 Start Date: 06/09/24 Status: Ordered Quantity: 30.0 Unit: tab(s) Repeat number: 1Start: 06-02-2024 End: 76-28-3724wqzl 1 tablet by mouth before mealtimelevothyroxine (Synthroid) 50 MCG tablet Indications: History of thyroid disease Take 1 tablet (50 mcg) by mouth in the morning. Take before meals. 30 tablet 11 06/02/2024 06/23/2024 DiscontinuedStart: 02-25-2024 End: 08-28-3472jugn 1 tablet by mouth before mealtimelevothyroxine (Synthroid) 25 MCG tablet Indications: Abnormal TSH Take 1 tablet (25 mcg) by mouth in the morning. Take before meals. 30 tablet 11 06/23/2024 06/23/2025 ActiveStart: 08-24-2021 End: 24-46-7915oxklxmevxxqxp (SYNTHROID) 25 mcg tablet Take 25 mcg by mouth. 0 08/24/2021 09/26/2023 Discontinued End: 28-55-7539mscp 3 tablets by mouth once dailylevothyroxine (Synthroid) 25 MCG tablet Take 75 mcg by mouth 1 (one) time each day at the same time05/06/2024 DiscontinuedComment on above:Take 25 mcg by mouth.Lovenox 40 mg/0.4 mL Injection (20 sources)Start: 27-36-2523hdtnim 40 mg by subcutaneous injection every twenty-four hoursLovenox 40 mg/0.4 mL Injection 40 mg, SubCutaneous, q24hr, # 7 EA, Refills(s) 0, Blood Thinner Start Date: 04/07/20 Status: Ordered Quantity: 7.0 Unit: EA Repeat number: 1Start: 52-82-7110uoaoge 40 mg by subcutaneous injection every twenty-four hoursLovenox 40 mg/0.4 mL Injection 40 mg, SubCutaneous, q24hr, # 7 EA, Refills(s) 0, Blood Thinner Start Date: 04/07/20 Status: Boonanz62 hr metFORMIN hydrochloride 500 mg extended release oral tablet (20 sources)BiguanideStart: 01-19-2025 End: 48-88-9233ahcf 3 tablets by mouth every twenty-four hours at mealtime metFORMIN XR (Glucophage-XR) 500 MG 24 hr tablet Indications: Gestational diabetes mellitus (GDM), antepartum, gestational diabetes method of control unspecified ([facility]) Take 3 tablets (1,500 mg) by mouth in the evening. Take with meals Do not crush, chew, or split. 90 tablet 3 01/19/2025 ActiveStart: 80-00-8706fxlCITZDB XR (GLUCOPHAGE XR) 500 mg 24 hr tablet Take 1500 mg at night. 90 tablet 4 01/01/2025 ActiveStart: 12-17-2024 End: 31-44-0202ggoDELGDE XR (GLUCOPHAGE XR) 500 mg 24 hr tablet Take 1000 mg at night. 90 tablet 4 12/17/2024 01/01/2025 DiscontinuedStart: 05-13-2024 End: 22-57-4199iirz 2 tablets by mouth every twenty-four hours at mealtime metFORMIN XR (Glucophage-XR) 500 MG 24 hr tablet Indications: Insulin resistance Take 2 tablets (1,000 mg) by mouth in the evening. Take with meals Do not crush, chew, or split. 60 tablet 11 05/13/2024 06/02/2024 DiscontinuedStart: 11-27-2023 End: 26-69-9860jqjq 1 tablet by mouth once dailymetFORMIN XR (Glucophage-XR) 500 MG 24 hr tablet Indications: Insulin resistance Take 1 tablet (500mg) by mouth 1 (one) time each day at the same time 30 tablet 11 09/18/2024 01/19/2025 DiscontinuedStart: 51-58-4189FmfDMUPGK (Eqv-Glucophage XR) 500 mg oral tablet, extended release 1,000 mg = 2 tab(s), Oral, Daily, Refills(s) 0 Start Date: 10/20/22 Status: Ordered Repeat number: 1Start: 03-26-2022 End: 99-66-5025iydYSQXKT XR (GLUCOPHAGE XR) 500 mg 24 hr [...] tablet by mouth once daily.polyethylene glycol 3350 89400 mg powder for oral solution (20 sources)Osmotic Laxativepolyethylene glycol, PEG, 3350 (Glycolax) 17 GM/SCOOP powder Take 17 g by mouth Daily ActivePolyethylene Glycols (4 sources)polyethylene glycol 3350 (MIRALAX PO) Take by mouth. ActivePRENATAL 19 29 mg iron- 1 mg tablet,chewable (20 sources)Start: 57-37-3785YYUSCVTX 19 29 mg iron- 1 mg tablet,chewable Chew 1 tablet and swallow in the morning. 6 10/31/2018ActiveStart: 73-62-1446NZISLGBD 19 29 mg iron- 1 mg tablet,chewable Chew 1 tablet and swallow daily. 6 10/31/2018 ActivePrenatal Vit-Fe Fumarate-FA ( PO) (1 source)Start: 22-49-6154Ftepbztm Vit-Fe Fumarate-FA ( PO) Take 1 tablet by mouth 0 10/31/2018 Activeprogesterone 200 mg oral capsule (20 sources)Progesteronetake 1 capsule by mouth in the morningprogesterone (PROMETRIUM) 200 mg capsule Take 1 capsule (200 mg total) by mouth in the morning. ActiveProgesterone 200 MG suppository (6 sources)Start: 09-18-2024 End: 03-36-5106Kzdgarbfcjgk 200 MG suppository Indications: History of miscarriage Insert 200 mg into the vagina at bedtime Insert suppository vaginally every night at bedtime until 12 weeks gestation 30 suppository 3 09/18/2024 10/30/2024 Discontinued (Therapy completed)Start: 09-18-2024 End: 31-36-5391Xtcpvbdvjiyh 200 MG suppository Indications: History of miscarriage Insert 200 mg into the vagina at bedtime Insert suppository vaginally every night at bedtime until 12 weeks gestation 30 suppository 3 09/18/2024 12/17/2024 ActiveStart: 09-01-2024 End: 93-91-1837Ppvqhcfdxyrg 200 MG suppository Indications: History of miscarriage Insert 200 mg into the vagina at bedtime Insert suppository vaginally every night at bedtime until 12 weeks gestation 30 suppository 2 09/01/2024 11/30/2024 Activeprogesterone vaginal suppository 200 mg (CPD) (4 sources)progesterone vaginal suppository 200 mg (CPD) Use 200 mg vaginally. Unwrap and insert as directed. Activeterconazole 4 mg/ml vaginal cream (3 sources)Azole AntifungalStart: 06-23-2024 End: 79-17-5682tpetbfxenst (Terazol 7) 0.4 % vaginal cream Indications: Vaginal discharge Insert 1 applicator intothe vagina at bedtime for 7 days 45 g 06/23/2024 06/30/2024 ActiveVentolin HFA 90 mcg/inh Aerosol-Adpt (1 source)Start: 09-07-2024 End: 37-70-7619crur 2 puff(s) by inhalation every six hours for wheezingVentolin HFA 90 mcg/inh Aerosol-Adpt 2 puff(s), Inhalation, q6hr for wheezing for 7 day(s), 8 gm, Refill(s) 0, [facility], 167, cm, 09/07/24 10:01:00 EDT, Height/Length Dosing, 96.4, kg, 09/07/24 10:01:00 EDT, Weight Dosing Start Date: 09/07/24 Stop Date: 09/14/24 Status: Ordered Quantity:8.0 Unit: g Repeat number: 1 Indication: Acute upper respiratory infection, unspecifiedVitamin D (20 sources)Start: 65-59-8884Aggachm D 2,000 International_Unit, Oral, qWeek, Refills(s) 0 Start Date: 08/03/23 Status: Ordered Repeat number: 1Start: 97-91-9400Htywebk D 2,000 International_Unit, Oral, qWeek, Refills(s) 0 Start Date: 08/03/23 Status: Ordered Completed/Discontinued Medications MedicationDrug Class(es)DatesSig (Normalized)Sig (Original)aspirin 81 mg chewable tablet (5 sources)Platelet Aggregation Inhibitor, Nonsteroidal Anti-inflammatory Drug End: 13-67-6268kizvnpr 81 MG chewable tablet Chew 81 mg in the morning. 05/06/2024 Discontinued1 ml dexamethasone phosphate 4 mg/ml injection (1 source)CorticosteroidStart: 11-29-2023 End: 21-99-1176afyRAMUXzldte sodium phosphate 8 mg injection (DECADRON)3 ml insulin glargine 100 unt/ml pen injector (6 sources)Insulin AnalogStart: 12-03-2024 End: 47-01-2583bxxepfs glargine (LANTUS SOLOSTAR U-100 INSULIN) 100 unit/mL (3 mL) insulin pen Prime with 2 units then inject 4 units SQ into abd 15 mL 3 12/03/2024 12/17/2024 Discontinued (Allergic response)insulin isophane, human 100 unt/ml injectable suspension (10 sources)Start: 12-26-2024 End: 58-66-8074gqhn 8 [IU] by mouth once dailyinsulin NPH (HumuLIN N,NovoLIN N) 100 unit/mL injection Indications: Gestational diabetes mellitus (GDM) in second trimester controlled on oral hypoglycemic drug Inj sbq in abd 8 units nightly 10 mL 6 12/26/2024 02/06/2025 Discontinued (Patient Never Started This Medication)iron sucrose 300 mg in NaCl 0.9% 250 mL (VENOFER) (3 sources)Start: 11-29-2023 End: 06-40-0651dgkb sucrose 300 mg in NaCl 0.9% 250 mL (VENOFER)Start: 11-22-2023 End: 36-17-9623fexq sucrose 300 mg in NaCl 0.9% 250 mL (VENOFER)Start: 11-15-2023 End: 99-55-8964hips sucrose 300 mg in NaCl 0.9% 250 mL (VENOFER)multivitamin (MULTIPLE VITAMINS) tablet (7 sources)take 1 tablet by mouth once dailymultivitamin (MULTIPLE VITAMINS) tablet Take 1 tablet by mouth once daily. 0 ActiveComment on above:Take 1 tablet by mouth once daily.ondansetron 4 mg disintegrating oral tablet (4 sources)Serotonin-3 Receptor AntagonistStart: 04-14-2024 End: 85-72-0559nyjc 1 tablet by mouth every six hours for nauseaondansetron ODT (Zofran-ODT) 4 MG disintegrating tablet Indications: Nausea and vomiting in Take 1 tablet (4 mg) by mouth every 6 (six) hours if needed for nausea or vomiting 30 tablet 2 04/14/2024 05/06/2024 DiscontinuedStart: 03-07-2024 End: 97-39-2111aivh 1 tablet by mouth every six hours as needed for nausea and vomiting and nausea and nauseaondansetron ODT (Zofran-ODT) 4 MG disintegrating tablet Indications: Nausea Take 1 tablet (4 mg) bymouth every 6 (six) hours if needed for nausea or vomiting 30 tablet 2 03/07/2024 04/06/2024 Active polysaccharide iron complex 391 mg oral capsule (20 sources)Start: 03-06-2022 End: 79-53-3019FZH FE 180 mg iron cap Problems Active Problems Problem ClassificationProblemDateDocumented DateEpisodic/ChronicAcute cerebrovascular disease (20 sources)Cerebral infarction; Translations: [Cerebral infarction, unspecified]Onset: 05-16-2019 Resolved: 908305-39-7643NonkljiYmltobi disorders (20 sources)Anxiety; Translations: [Anxiety disorder, unspecified]Onset: 456540-32-7485IvxdjntXvzhyjw dysrhythmias (20 sources)Supraventricular tachycardia; Translations: [Supraventricular tachycardia]Onset: 183908-44-2021JaknokiNmjpeijbgxu and hemorrhagic disorders (20 sources)Antiphospholipid syndrome; Translations: [Hypercoagulability state] Onset: 105910-97-7903MigmuxuUeskpvzshc and other anemia (20 sources)Iron 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; Translations: [Iron deficiency anemia secondary to blood loss (chronic)]Onset: 93-65-6671Iefolpr Deficiency and other anemia (1 source)Iron deficiency anemia secondary to blood loss (chronic); Translations: [Iron deficiency anemia secondary to blood loss (chronic)]Onset: 39-80-2570TvxbavpNzhnabikh of teeth and jaw (11 sources)Temporomandibular jiwdb-knxn-uborwctpguv syndrome; Translations: [Arthralgia of temporomandibular joint]Onset: 318382-50-7519Nvimsucr Esophageal disorders (20 sources)Laryngopharyngeal reflux; Translations: [Gastro-esophageal reflux disease without esophagitis]Onset: 570624-94-9826XkjckfgQpgkvzeu; including migraine (20 sources)Migraine without aura, not refractory ; Translations: [Migraine without aura, not intractable, without status migrainosus]Onset: 09-12-2017 Resolved: 283644-96-5300GhfzjrcYrbbybaa; including migraine (2 sources)Sinus headache; Translations: [Sinus headache]85-22-2659PnccgnytSpub effects of cerebrovascular disease (20 sources)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; Translations: [Other speechand language deficits following cerebral infarction]Onset: 99-95-9646YtircftBqbdkwceut disorders (1 source)Hormone replacement therapy; Translations: [HORMONE REPLACEMENT THERAPY]Onset: 97-53-1459MujfguofYzbibkkrp disorders (20 sources)Irregular menstruation, unspecified; Translations: [Missed period] Onset: 25-21-8934QiogstqTqzcthdzqdsig mental health disorders (20 sources)Psychogenic hyperventilation; Translations: [Other somatoform disorders]Onset: 130968-23-6443PvwxsplEnlwbzal sclerosis (1 source)Multiple sclerosis; Translations: [Multiple sclerosis]Onset: 38-89-0707OvdybxjRbnuqdmxwnj deficiencies (20 sources)Vitamin D deficiency; Translations: [Vitamin D deficiency, unspecified]Onset: 520099-85-0366KeogywwYlbob aftercare (1 source)Other jail (current) drug therapy; Translations: [OTH CARE HOME CURRENT DRUG THERAPY]Onset: 61-19-9131MdydzmbkUtsen aftercare (1 source)longterm (current) use of oral hypoglycemic drugs; Translations: [CARE HOME USE ORAL HYPOGLYCEMIC DX]Onset: 78-68-9253UeolcjgcNanfw aftercare (2 sources)H/O: miscarriage; Translations: [Encounter for other specified aftercare]37-51-8260OuchllhzChdhz circulatory disease (4 sources)History of cerebrovascular disease; Translations: [Personal history of transient ischemic attack (TIA), and cerebral infarction without residual deficits]Onset: 105458-38-3724PdjehfjcOxrli circulatory disease (3 sources)Personal history of transient ischemic attack (TIA), and cerebral infarction without residual deficits; Translations: [PERS HX TIA AND CI NO RESID DEFICIT]Onset: 04-51-8829UblqjlyuVdlvt circulatory disease (1 source)History of transient ischemic attack; Translations: [Personal history of transient ischemic attack (TIA), and cerebral infarction without residual deficits]65-78-8500KdxhjrjbFlqzg complications of ; puerperium affecting management of mother (20 sources)Anemia in mother complicating childbirth; Translations: [Anemia complicating childbirth]Onset: 845737-72-3347QdkeqicMvcvi complications of ; puerperium affecting management of mother (1 source)Other diseases of the blood and blood-forming organs and certain disorders involving the immune mechanism complicating childbirth; Translations: [OTH DZ BLD BFO IMMUN COMP CHILDBRTH]Onset: 48-31-0137XiwhqdxzPpuxi complications of ; puerperium affecting management of mother (1 source)Endocrine, nutritional and metabolic diseases complicating childbirth; Translations: [ENDOCRN NUTR MET DZ COMP CHILDBIRTH]Onset: 70-46-4937Mgxrcskx Other complications of ; puerperium affecting management of mother (1 source)Streptococcus B carrier state complicating childbirth; Translations: [STREP B QUIROZ STATE COMP CHILDBIRTH]Onset: 25-96-4168PcmvuwypXaabs complications of (20 sources)Iron deficiency anemia of ; Translations: [Anemia complicating , unspecified trimester]Onset: 97-08-2133EvihhwgJxwag complications of (1 source)Endocrine, nutritional and metabolic diseases complicating , third trimester; Translations: [ENDOCRN NUTR MET DZ COMP PG 3RD TRI]Onset: 51-41-2199PprpazshOtgla complications of (5 sources)Supervision of elderly multigravida, third trimester; Translations: [SUP ELDER MULTIGRAVIDA THIRD TRI]Onset: 61-36-6387WvmntwpuArwfh complications of (1 source)Other diseases of the blood and blood-forming organs and certain disorders involving the immune mechanism complicating , third trimester; Translations: [OTH DZ BLD BFO IMMN COMP PG 3RD TRI]Onset: 05-04-2022 EpisodicOther complications of (1 source)Maternal care for excessive growth, third trimester, not applicable or unspecified; Translations: [MAT CARE EXCSS FTL GRTH 3RD TRI UNS] Onset: 51-38-4064CbmqkdpyXujoa complications of (20 sources)Antiphospholipid syndrome; Translations: [Other diseases of the blood and blood-forming organs and certain disorders involving the immune mechanism complicating , unspecified trimester]Onset: 07-07-2019 92-02-5749SuspkapwCaygc complications of (20 sources)Multigravida of advanced maternal age; Translations: [Supervision of elderly multigravida, second trimester]Onset: 612444-78-6836IzkvpsyeSzxvf complications of (19 sources)History of with abortive outcome; Translations: [Supervision of with other poorreproductive or obstetric history, second trimester]Onset: 964493-80-7625ImgytvyrAnqja complications of (3 sources)Hypothyroidism in ; Translations: [Endocrine, nutritional and metabolic diseases complicating , second trimester]01-02-2025 EpisodicOther ear and sense organ disorders (20 sources)Otitis externa of right ear; Translations: [Unspecified otitis externa, right ear]Onset: 69-33-2562UaniyilVxeml ear and sense organ disorders (7 sources)Otitis thfajcf56-47-1429VqcpgnkZjlhf endocrine disorders (20 sources)Hypoglycemia; Translations: [Hypoglycemia, unspecified]Onset: 902099-28-3153WrlrxajWilyg female genital disorders (2 sources)Vaginal bleeding; Translations: [Abnormal uterine and vaginal bleeding, unspecified]61-20-4911ThmdlxhJyzrn female genital disorders (4 sources)Vaginal discharge; Translations: [Other specified noninflammatory disorders of vagina]52-61-8817QhjwtmvbNmswj hematologic conditions (1 source)H/O: blood disorder; Translations: [Personal history of diseases of the blood and blood-forming organs and certain disorders involving the immune mechanism]Onset: 35-53-6275WqhgwrbgSbeto lower respiratory disease (9 sources)Tczhl59-78-5631CoygnqixTadvf nervous system disorders (1 source)Idiopathic progressive neuropathy; Translations: [Idiopathic progressive neuropathy]Onset: 58-87-6195LukhnhfOhctv nervous system disorders (20 sources)Neuropathy; Translations: [Idiopathic progressive neuropathy]Onset: 430214-41-1110YrsckboSyenh nervous system disorders (3 sources)Paresthesia; Translations: [Paresthesia of skin]Onset: 05-16-2019 EpisodicOther nervous system disorders (9 sources)Muscle ecivcp24-57-8211ByvgvvufBxjnp nervous system disorders (6 sources)Facial vznmdavgvfa16-85-8919ZywrgyifAbuzt nutritional; endocrine; and metabolic disorders (10 sources)Obese class II; Translations: [Body mass index (BMI) 36.0-36.9, adult]Onset: 58-77-7543NrvxnuuKyjql nutritional; endocrine; and metabolic disorders (20 sources)Obesity; Translations: [Other obesity]Onset: 675313-02-2107 ChronicOther nutritional; endocrine; and metabolic disorders (20 sources)Morbid obesity; Translations: [Morbid (severe) obesity due to excess calories]Onset: 61-62-9207HkfvtsoNahvq nutritional; endocrine; and metabolic disorders (3 sources)Hypercalcemia; Translations: [Hypercalcemia]83-61-6127VewnnjgFbgpz nutritional; endocrine; and metabolic disorders (20 sources)Body mass index 30+ - obesity; Translations: [Body mass index (BMI) 37.0-37.9, adult]Onset: 157307-17-7982OypwhyhRwmwn nutritional; endocrine; and metabolic disorders (1 source)Obese class I; Translations: [Body mass index (BMI) 34.0-34.9, adult] Onset: 08-00-5394QpclvffZdgec nutritional; endocrine; and metabolic disorders (1 source)H/O: Disorder; Translations: [Personal history of other endocrine, nutritional and metabolic disease]Onset: 52-53-3816EagzvkhiEsrok nutritional; endocrine; and metabolic disorders (2 sources)H/O: thyroid disorder; Translations: [Personal history of other endocrine, nutritional and metabolic disease]17-89-1086AqomjhdaMebcm screening for suspected conditions (not mental disorders or infectious disease) (12 sources)Encounter for screening for malignant neoplasm of cervix; Translations: [Encounter for screening for diabetes mellitus]Onset: 10-28-2021 EpisodicOther skin disorders (1 source)Podopompholyx; Translations: [Dyshidrosis [pompholyx]]Onset: 19-99-2023HibsieddKdjkd upper respiratory disease (20 sources)Allergy to ikopru56-28-6000BrfkrapDarhq upper respiratory disease (1 source)Polyp of nasal sinus; Translations: [Nasal polyp, unspecified]Onset: 64-55-1779JioerhmdNvmhu upper respiratory infections (8 sources)Chronic sinusitis; Translations: [Chronic sinusitis, unspecified] Onset: 94-42-2961NoccmocObxzlqpg codes; unclassified (1 source)Sleep disorder; Translations: [Other sleep disorders]Onset: 10-20-2022 ChronicResidual codes; unclassified (20 sources)Obstructive sleep apnea syndrome; Translations: [Obstructive sleep apnea (adult) (pediatric)]Onset: 138274-95-5100TamlmmwZmreixio codes; unclassified (8 sources)Patient encounter status; Translations: [Other specified health status]Onset: 95-99-4053SaroicuiSfmnkkgy codes; unclassified (1 source)39 weeks gestation of ; Translations: [39 WEEKS GESTATION OF ]Onset: 96-77-3037UhitprvnHzmkhgsr codes; unclassified (1 source)Family history of diabetes mellitus; Translations: [FAMILY HISTORY OF DIABETES MELLITUS]Onset: 38-83-5071ThedsyroPifqbwtb codes; unclassified (1 source)Family history of stroke; Translations: [FAMILY HISTORY OF STROKE] Onset: 01-78-2854MbfxkdjwDznsqjnc codes; unclassified (1 source)38 weeks gestation of ; Translations: [38 WEEKS GESTATION OF ]Onset: 06-66-1287ZmqqelihTzykozdu codes; unclassified (1 source)37 weeks gestation of ; Translations: [37 WEEKS GESTATION OF ]Onset: 90-88-0951CkilkdifDovcyfdb codes; unclassified (1 source)35 weeks gestation of ; Translations: [35 WEEKS GESTATION OF ]Onset: 93-07-2374CmqvqnzxDkzvpypf codes; unclassified (1 source)34 weeks gestation of ; Translations: [34 WEEKS GESTATION OF ]Onset: 17-59-6572MvpjetviOxrgsuak codes; unclassified (1 source)33 weeks gestation of ; Translations: [33 WEEKS GESTATION OF ]Onset: 64-49-4908HygelbseAadwtykg codes; unclassified (1 source)32 weeks gestation of ; Translations: [32 WEEKS GESTATION OF ]Onset: 60-38-6775QptqdmfjJzkhhsyf codes; unclassified (1 source)31 weeks gestation of ; Translations: [31 WEEKS GESTATION OF ]Onset: 72-15-3482RzgxeapnMiznnffq codes; unclassified (20 sources)Sleep xilooigi32-79-6146QyxzqprnXvkvzdkw codes; unclassified (1 source)Localized edema; Translations: [Localized edema]Onset: 11-09-2023 EpisodicResidual codes; unclassified (2 sources)Gestation period, 14 weeks; Translations: [14 weeks gestation of ]13-26-8281MvhodrcrWuyposom codes; unclassified (2 sources)Gestation period, 13 weeks; Translations: [13 weeks gestation of ]02-83-7490AgebdhlcHxuasofn codes; unclassified (2 sources)Gestation period, 16 weeks; Translations: [16 weeks gestation of ]37-23-0347YpjbepeeFqhaujzk codes; unclassified (2 sources)Gestation period, 19 weeks; Translations: [19 weeks gestation of ]24-56-3117KymzzyanCdfyjhqi codes; unclassified (3 sources)Gestation period, 22 weeks; Translations: [22 weeks gestation of ]52-65-8220EmbohojfEsmosqqy codes; unclassified (3 sources)Family history of autism; Translations: [Family history of other mental and behavioral disorders]83-66-2085XiqdhxjiYzchrtll codes; unclassified (2 sources)Gestation period, 23 weeks; Translations: [23 weeks gestation of ]33-56-6164YwwnltizMljfrcdg codes; unclassified (2 sources)Gestation period, 25 weeks; Translations: [25 weeks gestation of ]98-78-7243ZuvpcniuNwnpnmgs codes; unclassified (1 source)Gestation period, 27 weeks; Translations: [27 weeks gestation of ]30-24-1403XcfmhwyeJdwslwag codes; unclassified (1 source)22 weeks gestation of ; Translations: [22 weeks gestation of ]Onset: 62-87-8230BezgaambBdpqirxa codes; unclassified (2 sources)Gestation period, 28 weeks; Translations: [28 weeks gestation of ]90-49-3781CfutvivmBcffwygu codes; unclassified (1 source)Gestation period, 29 weeks; Translations: [29 weeks gestation of ]19-19-2429StejuldwKqgvskdb codes; unclassified (2 sources)Gestation period, 30 weeks; Translations: [30 weeks gestation of ]37-32-7207RonuivsgMdlftsp disorders (20 sources)Hypothyroidism; Translations: [Hypothyroidism, unspecified]Onset: 875536-32-6864FynkbrzWurrhjb disorders (20 sources)Disorder of thyroid, unspecified; Translations: [Disorder of thyroid gland]Onset: 865276-47-0942AmwejgaoMemstyebc cerebral ischemia (1 source)Transient cerebral ischemia; Translations: [Transient cerebral ischemic attack, unspecified]Onset: 421408-94-5470TwvggapOnusvyqazowp (20 sources)History of HVUR-TeJ-857-11-2022Unclassified (20 sources)Inhalation -31-6201Rucguaxqyint (20 sources)Tqr-xwdvug47-51qulsbg99-34-7247Gteflzzwpehx (1 source)CONTACT W/AND (SUSP) EXPOS COVID-19; Translations: [CONTACT W/AND (SUSP) EXPOS COVID-19]Onset: 15-55-7226Ehrwmihxzygd (15 sources)Patient encounter bbilla17-12-0631Whfamibigwpt (1 source)MFM consultOnset: 44-84-1426Ziibkbvpzwio (1 source)Gestational DiabetesOnset: 52-64-2126Illkr infection (20 sources)Viral ziuxfwu53-24-4243Njaobaes Past or Other Problems Problem ClassificationProblemDateDocumented DateEpisodic/ChronicAbdominal pain (20 sources)Abdominal pain; Translations: [Pain in pelvis]Onset: 02-01-2019 03-37-7490HtuemwglAleyz bronchitis (20 sources)Acute infective bronchitis; Translations: [Acute bronchitis due to other specified organisms]Onset: 828209-86-6586ZbffmnfpOdlea posthemorrhagic anemia (20 sources)Acute posthemorrhagic anemia; Translations: [Acute posthemorrhagic anemia]Onset: 538462-92-5185CihtaftdHngubkxy reactions (20 sources)Other allergy status, other than to drugs and biological substances; Translations: [Ctacu-nc-volmfhu vesicular eczema of hands and feet]Onset: 10-10-6518OqqxymqtGigrjieek infection; unspecified site (20 sources)Bacterial infectious disease; Translations: [Other bacterial infections of unspecified site]Onset: 149782-76-4990AoxkaxyjYdzdsmco of urinary tract (20 sources)History of calculus of kidney; Translations: [Personal history of urinary calculi]Onset: 766907-38-9112XqsffbshKybelck dysrhythmias (20 sources)Palpitations; Translations: [Palpitations]Onset: 08-26-2019 67-26-3181NmtwexhyDteckgrwdm associated with dizziness or vertigo (20 sources)Dizziness; Translations: [Dizziness and giddiness]Onset: 02-05-2019 24-15-0230TduvgvsbJmqqpakllr and other anemia (20 sources)Anemia; Translations: [Anemia, unspecified]Onset: 41-48-9163Ttamcbao Diabetes mellitus without complication (20 sources)Prediabetes; Translations: [Prediabetes]Onset: 89-25-5694Dujrcbpy Diabetes or abnormal glucose tolerance complicating ; childbirth; or the puerperium (20 sources)Gestational diabetes mellitus in , unspecified control; Translations: [Gestational diabetes mellitus in childbirth, unspecified control] Onset: 88-57-4718BogffltdOavdlity of mouth; excluding dental (20 sources)Xerostomia; Translations: [Dry mouth, unspecified]Onset: 12-22-2022 EpisodicFluid and electrolyte disorders (20 sources)Cerebral hyponatremia; Translations: [Hypo-osmolality and hyponatremia]Onset: 80-26-0031PovqsxsnYrvqmrbiqtgfdraz hemorrhage (20 sources)Hematochezia; Translations: [Blood-tinged feces]Onset: 06-12-2023 25-34-0319TbzrboptRiifovgyhxppx symptoms and ill-defined conditions (20 sources)Genitourinary symptoms; Translations: [Unspecified symptoms and signs involving the genitourinary system]Onset: 13-77-9147OazpboewUdjueczlztnwk and screening for infectious disease (20 sources)Antibody studies abnormal; Translations: [Raised antibody titer] Onset: 306237-43-6434YhhpnyeoBzidjxb and fatigue (20 sources)Fatigue; Translations: [Other fatigue]Onset: EpisodicMycoses (20 sources)Candidiasis of vagina Resolved: 156376-96-7646PhuejnpcQhmjazxnemf deficiencies (20 sources)Vitamin B deficiency; Translations: [Deficiency of other specified B group vitamins]Onset: 816061-62-4160AfztuotlWF-nzywpju trauma to perineum and vulva (20 sources)First degree perineal tear during delivery - delivered; Translations: [First degree perineal laceration during delivery]Onset: 412225-26-6241RocgvndnFyiwt aftercare (20 sources)Long-term current use of anticoagulant; 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]Onset: 334989-89-2702KcifzamiDfitb aftercare (20 sources)Long-term current use of drug therapy; Translations: [longterm (current) use of 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/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]Onset: EpisodicOther circulatory disease (20 sources)History of cerebrovascular accident; Translations: [Personal history of transient ischemic attack (TIA), and cerebral infarction without residual deficits]Onset: 816904-73-0208UcwldkwwQskrylx on above:reported by pt - related to antiphospholipid syndromeOther circulatory disease (20 sources)Elevated blood-pressure reading without diagnosis of hypertension; Translations: [Elevated blood-pressure reading, without diagnosis of hypertension]Onset: 624626-77-2931WagmoufvJzrcf circulatory disease (20 sources)Elevated blood pressure; Translations: [Elevated blood-pressure reading, without diagnosis of hypertension]Onset: 875398-39-8367Dqlfztbg Other complications of ; puerperium affecting management of mother (20 sources) problem; Translations: [Unspecified disorders of ]Onset: 795601-65-4767TbttuameRedcj complications of ; puerperium affecting management of mother (1 source)Endocrine, nutritional and metabolic disease complicating , childbirth and puerperium; Translations: [Endocrine, nutritional and metabolic diseases complicating childbirth]Onset: 252676-84-8160UeppxmukFehsg complications of ; puerperium affecting management of mother (1 source)Complication of , childbirth and/or the puerperium; Translations: [Other diseases of the blood and blood-forming organs and certain disorders involving the immune mechanism complicating childbirth]Onset: 155351-36-2865PcjwebicTpwco complications of ; puerperium affecting management of mother (20 sources) hemorrhage; Translations: [Other immediate hemorrhage]Onset: 242988-05-6453JmcquzkfEaotb complications of (1 source)Vomiting of ; Translations: [Vomiting of , unspecified]Onset: 439052-93-5505PhnagugtCvenf complications of (20 sources)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; Translations: [Maternal care for (suspected) chromosomal abnormality in fetus, not applicable or unspecified]Onset: 395085-78-5896LvbipcaiMlyqv complications of (4 sources)Other specified related conditions, third trimester; Translations: [OTH SPEC PREG RELATEDCOND 3RD TRI]Onset: 40-46-8602PqhkiheyFqryy complications of (2 sources)Other diseases of the blood and blood-forming organs and certain disorders involving the immune mechanism complicating , unspecified trimester; Translations: [Other diseases of the blood andblood-forming organs and certain disorders involving the immune mechanism complicating , un specified trimester]Onset: 70-09-5845SilpxymzSrnlo complications of (1 source)Supervision of elderly multigravida, second trimester; Translations: [Supervision of elderly multigravida, second trimester]Onset: 12-46-3717Ezxnsyqd Other ear and sense organ disorders (20 sources)Referred otalgia of right ear; Translations: [Otalgia, right ear] Onset: 587027-82-4563NipeuohtCenod female genital disorders (20 sources)Noninflammatory disorder of the vagina; Translations: [Other specified noninflammatory disorders ofvagina]Onset: 076374-43-7423Xupoongs Other female genital disorders (20 sources)Disorder of female reproductive system; Translations: [Unspecified condition associated with femalegenital organs and menstrual cycle]Onset: 798322-90-4444XzzcnqpcQcdta female genital disorders (1 source)Other specified noninflammatory disorders of vagina; Translations: [OTH SPEC NONINFLAMMATORY D/O VAGINA]Onset: 58-88-0257QnujygfsPpsft female genital disorders (10 sources)Pelvic and perineal pain; Translations: [Pelvic and perineal pain] Onset: 231672-00-3348GembtrnrIwdst hematologic conditions (20 sources)H/O: anemia - iron deficient; Translations: [Personal history of diseases of the blood and blood-forming organs and certain disorders involving the immune mechanism]Onset: 236141-52-7375TyqtwipuIwerd infections; including parasitic (20 sources)Personal history of other infectious and parasitic diseases; Translations: [History of COVID-19]Onset: 150525-19-4556RmhhqfadAojda inflammatory condition of skin (1 source)Itching of skin; Translations: [Pruritus, unspecified]Onset: 619859-78-0573XdwxlomxLrvkj inflammatory condition of skin (20 sources)Pruritus, unspecified; Translations: [Unspecified pruritic disorder] Onset: 914215-57-0689ZcjyranoAkipe injuries and conditions due to external causes (20 sources)Inhalation injury; Translations: [Injury, unspecified, initial encounter]Onset: 003337-05-5445FtylxpynJjvra lower respiratory disease (20 sources)Dyspnea; Translations: [Dyspnea, unspecified]Onset: 06-12-2023 12-98-7268FlttedjhDjocf lower respiratory disease (20 sources)H/O: asthma; Translations: [Personal history of other diseases of the respiratory system]Onset: 876869-59-1722DjtoqveoFokql lower respiratory disease (20 sources)Snoring; Translations: [Snoring]Onset: 67-27-0560PcgtdbufMsyxc nervous system disorders (20 sources)Muscle fasciculation; Translations: [Fasciculation]Onset: 08-19-2021 EpisodicOther nervous system disorders (20 sources)Paresthesia of lower extremity; Translations: [Paresthesia of skin] Onset: 779021-24-0794SbbxrfdrPruhk nervous system disorders (20 sources)Acute postoperative pain; Translations: [Other acute postprocedural pain]Onset: 063195-44-4241BwozdolgHddeo non-traumatic joint disorders (20 sources)Joint pain; Translations: [Pain in unspecified joint]Onset: 353097-75-2717YwjkejynIkttn nutritional; endocrine; and metabolic disorders (20 sources)H/O: hypothyroidism; Translations: [Personal history of other endocrine, nutritional and metabolic disease]Onset: 914552-66-2154Jqgpblih Other and delivery including normal (20 sources)Normal ; Translations: [Encounter for supervision of normal , unspecified, first trimester]Onset: 770112-50-5584Riaqsone Other skin disorders (20 sources)Yhyvj-qc-gtdtgin vesicular eczema of hands and feet; Translations: [Dyshidrosis [pompholyx]]Onset: 708796-49-3867KcesljrkJealf upper respiratory disease (20 sources)Deviated nasal septum; Translations: [Deviated nasal septum]Onset: 43-35-8366DenccsypXdiqg upper respiratory disease (20 sources)Polyp of nasal cavity and/or nasal sinus; Translations: [Nasal polyp, unspecified]Onset: 531298-77-6327AcxrlwidUzwdn upper respiratory infections (20 sources)Acute upper respiratory infection Resolved: 732090-25-0922YmjjgrreBqfdgm media and related conditions (20 sources)Dysfunction of eustachian tube; Translations: [Disorder of right Eustachian tube]Onset: 439326-63-5762TrkyegzyYcofmwg cyst (20 sources)Cyst of ovary; Translations: [Cyst of right ovary]Onset: 02-06-2019 30-03-4678ScnzudepEjexcwnu codes; unclassified (20 sources)Family history of female genital tract disorder Resolved: 267578-24-8627QuhdspmaVjjioabu codes; unclassified (20 sources)FH: Anemia Resolved: 513037-05-4515XyjimsfjIqychkgn codes; unclassified (20 sources)First trimester ; Translations: [Less than 8 weeks gestation of ]Onset: 648169-55-6003FegdnpcgExpvzchi codes; unclassified (20 sources)Gestation period, 32 weeks; Translations: [32 weeks gestation of ]Onset: 977498-93-2353YoezpkgaVhrbdqln codes; unclassified (1 source)Gestation period, 33 weeks; Translations: [33 weeks gestation of ]Onset: 560773-14-9289ZvocmgpjYvevbzpu codes; unclassified (1 source)Gestation period, 34 weeks; Translations: [34 weeks gestation of ]Onset: 981880-23-1383RfrvpnwsOiodfccu codes; unclassified (1 source)Gestation period, 35 weeks; Translations: [35 weeks gestation of ]Onset: 714791-23-8247HjvxyklnVneehevc codes; unclassified (1 source)Gestation period, 36 weeks; Translations: [36 weeks gestation of ]Onset: 124657-28-7051UdofhempIavpaeuz codes; unclassified (1 source)Gestation period, 37 weeks; Translations: [37 weeks gestation of ]Onset: 744120-32-0906EouurdpqXtvumhbd codes; unclassified (1 source)Gestation period, 38 weeks; Translations: [38 weeks gestation of ]Onset: 235663-43-0249RrppzomkVdsljhzc codes; unclassified (1 source)Gestation period, 39 weeks; Translations: [39 weeks gestation of ]Onset: 680104-86-0329NrxapbxtWeyfebcy codes; unclassified (20 sources)Other general symptoms and signs; Translations: [Other general symptoms]Onset: 969210-07-2199MneqzozgCsvatyat codes; unclassified (1 source)Unspecified blood type, Rh negative; Translations: [UNSPECIFIED BLOOD TYPE RH NEGATIVE]Onset: 02-22-0618FxzxevgeZmgcbftk codes; unclassified (1 source)28 weeks gestation of ; Translations: [28 WEEKS GESTATION OF ]Onset: 88-90-8312ZtwmcmevUnwkaikt codes; unclassified (20 sources)Intolerant of cold; Translations: [Other general symptoms and signs] Onset: 956547-79-9565OnpozflgQfdwwbjr codes; unclassified (20 sources)Non-smoker; Translations: [Other specified health status]Onset: 138195-71-1669EhtpcpnvHhoisgoh codes; unclassified (20 sources)Swelling of salivary gland; Translations: [Localized edema]Onset: 646702-65-8216WovtmsmxZojkiytzwau; intervertebral disc disorders; other back problems (20 sources)Neck pain; Translations: [Cervicalgia]Onset: EpisodicSpontaneous (20 sources)Miscarriage Resolved: 058335-74-2649EeyozxigUkqcbgh (20 sources)Syncope and collapse; Translations: [Syncope and collapse]Onset: 015759-83-1953AcztupixTmkgaawecyre (20 sources)PregnancyOnset: 02-20-2007 Resolved: 003431-71-8604Qphtldtncomp (20 sources)Suspected disease caused by 9317-vMzN42-98mMvF78-61-4891Krbsmwvvfaaz (1 source)Exposure to 2019 novel coronavirus; Translations: [Contact with and (suspected) exposure to COVID19]Urinary tract infections (20 sources)Infective urethritis; Translations: [Other urethritis]Onset: 25-71-3994Baqvpjpd Results Test NameValueInterpretationReference RangeFacilityUrinalysis macro (dipstick) panel (U)on 95-56-6582Fnjxtqpnm, UANegativeNegative - 4(70) +++ mg/dLNOMS HealthcareBlood, UANegativeNegative - 50 Max/mcLNOMS HealthcareClarity, UAClear [facility] HealthcareColor, UAYellowNOMS HealthcareGlucose, UANegativeNegative - 2000(110) ++++ mg/dLNOMS HealthcareInterpretation and review of laboratory resultsNormalNOMS HealthcareKetones, UANegativeNegative - 160(16) ++++ mg/dLNOMS HealthcareLeukocytes, UANegativeNegative - 500+++ John/mcLNOMS HealthcareNitrite, UANegativeNegative - PositiveNOMS HealthcarepH, UA6.05 - 9N[facility] Healthcare Protein, UANegativeNegative - 2000(20) ++++ mg/dLNOMS HealthcareSpec Grav, UA 1.0101 - 1.03NOMS HealthcareUrobilinogen, UA0.20.2 - 12 mg/dLNOMS HealthcareNOMS HealthcareNo Panel InformationOrdered By: Radiologist Radiology on 02-20-2025 [facility] Work Phone: No Panel Informationon 60-94-9235Zyquzoilq Study observation (narrative)NOMS HealthcareUS OB BPP W NON-STRESSon 02-20-[address] [address] Ultrasound Report Signed Patient: SANNA RENDON MR#: [id number] : 1985 Acct:[id number] Age/Sex: 39 / F ADM Date: 02/19/25 Loc: US Attending Dr: Wilton Herrmann D.O. Ordering Physician: Wilton Herrmann D.O. Date of Service: 02/19/25 Procedure(s): US OB BPP w non-stress Accession Number(s): [id number] cc: Wilton Herrmann D.O.; Physician,Non-Staff Tamia [address] [address] Patient Name: SANNA RENDON [facility]N: [facility]:[id number] date: 1985 Sex: F Assigned Patient Location: LAB Current Patient Location: Accession/Order Number: [id number] Exam Date: 02/19/2025 19:47 Report Date: 02/20/2025 08:37 At the request of: WILTON HERRMANN DO Procedure: US OB BPP w non-stress CLINICAL DATA: Third trimester evaluation Z34.93 ULTRASOUND OB GROWTH COMPARISON: 09/11/2024 There is a single live intrauterine gestation in breech presentation. There is cardiac and somatic activity with heart rate of 142 bpm. The amniotic fluid index measures 13.2 cm which is in normal range. The following measurements were obtained: Biparietal diameter 7.1 cm 28 weeks 3 days 13% Head circumference 27.1 cm 29 weeks 4 days 21% Abdominal circumference 24.7 cm 29 weeks 0 days 30% Femur length 7.8 cm 30 weeks 1 day 56% The composite ultrasound age based on these measurements is 29 weeks 2 days +/- 2 weeks 0 days. This correlates with the reported gestational age. The estimated weight is 3 lbs. 1 oz. [...] or more episodes of breathing lasting at least 30 seconds [Y] 2/2 SARAHI: A single deepest vertical pocket of amniotic fluid greater than 2 cm [Y] 2/2 SARAHI: 13.2 cm Total score: 8/8 IMPRESSION: NORMAL BIOPHYSICAL PROFILE Impression dictated by: Pamela Psiano M.D. 02/20/2025 8:37 AM Dictation Location: [place] [address] Electronically authenticated by: [id number] Y Date: 02/20/2025 08:37 Dictated By: Pamela Pisano M.D. Signed By: 02/20/2540 DD/ TD/TT: Fine Arts Instructor:TBHRadiology, Radiologist, MD - 02/20/2025 [place] [address] Ultrasound Report Signed Patient: SANNA RENDON MR#: [id number] : 1985 Acct:[id number] Age/Sex: 39 / F ADM Date: 02/19/25 Loc: US Attending Dr: Wilton Herrmann D.O. Ordering Physician: Wilton Herrmann D.O. Date of Service: 02/19/25 Procedure(s): US OB BPP w non-stress Accession Number(s): [id number] cc: Wilton Herrmann D.O.; Physician,Non-Staff Tamia The [address] [address] Patient Name: SANNA RENDON MRN: [facility]:[id number] date: 1985 Sex: F Assigned Patient Location: LAB Current Patient Location: Accession/Order Number: [id number] Exam Date: 02/19/2025 19:47 Report Date: 02/20/2025 08:37 At the request of: WILTON HERRMANN DO Procedure: US OB BPP w non-stress CLINICAL DATA: Third trimester evaluation Z34.93 ULTRASOUND OB GROWTH COMPARISON: 09/11/2024 There is a single live intrauterine gestation in breech presentation. There is cardiac and somatic activity with heart rate of 142 bpm. The amniotic fluid index measures 13.2 cm which is in normal range. The following measurements were obtained: Biparietal diameter 7.1 cm 28 weeks 3 days 13% Head circumference 27.1 cm 29 weeks 4 days 21% Abdominal circumference 24.7 cm 29 weeks 0 days 30% Femur length 7.8 cm 30 weeks 1 day 56% The composite ultrasound age based on these measurements is 29 weeks 2 days +/- 2 weeks 0 days. This correlates with the reported gestational age. The estimated weight is 3 lbs. 1 oz. [...] or more episodes of breathing lasting at least 30 seconds [Y] 2/2 SARAHI: A single deepest vertical pocket of amniotic fluid greater than 2 cm [Y] 2/2 SARAHI: 13.2 cm Total score: 8/8 IMPRESSION: NORMAL BIOPHYSICAL PROFILE Impression dictated by: Pamela Pisano M.D. 02/20/2025 8:37 AM Dictation Location: [place] [address] Electronically authenticated by: [id number] Y Date: 02/20/2025 08:37 Dictated By: Pamela Pisano M.D. Signed By: 02/20/2540 DD/ TD/TT: Fine Arts Instructor: SHILOH NOVAKon 85-93-[place], [place] [address] Ultrasound Report Signed Patient: SANNA RENDON MR#: [id number] : 1985 Acct:[id number] Age/Sex: 39 / F ADM Date: 02/19/25 Loc: US Attending Dr: Wilton Herrmann D.O. Ordering Physician: Wilton Herrmann D.O. Date of Service: 02/19/25 Procedure(s): US OB growth Accession Number(s): [id number] cc: Wilton Herrmann D.O.; Physician,Non-Staff M.DLazara [place] [address] Patient Name: SANNA RENDON MRN: [facility]:[id number] date: 1985 Sex: F Assigned Patient Location: LAB Current Patient Location: Accession/Order Number: [id number] Exam Date: 02/19/2025 19:47 Report Date: 02/20/2025 08:37 At the request of: WILTON HERRMANN DO Procedure: US OB BPP w non-stress CLINICAL DATA: Third trimester evaluation Z34.93 ULTRASOUND OB GROWTH COMPARISON: 09/11/2024 There is a single live intrauterine gestation in breech presentation. There is cardiac and somatic activity with heart rate of 142 bpm. The amniotic fluid index measures 13.2 cm which is in normal range. The following measurements were obtained: Biparietal diameter 7.1 cm 28 weeks 3 days 13% Head circumference 27.1 cm 29 weeks 4 days 21% Abdominal circumference 24.7 cm 29 weeks 0 days 30% Femur length 7.8 cm 30 weeks 1 day 56% The composite ultrasound age based on these measurements is 29 weeks 2 days +/- 2 weeks 0 days. This correlates with the reported gestational age. The estimated weight is 3 lbs. 1 oz. [...] or more episodes of breathing lasting at least 30 seconds [Y] 2/2 SARAHI: A single deepest vertical pocket of amniotic fluid greater than 2 cm [Y] 2/2 SARAHI: 13.2 cm Total score: 8/8 IMPRESSION: NORMAL BIOPHYSICAL PROFILE Impression dictated by: Pamela Pisano M.D. 02/20/2025 8:37 AM Dictation Location: [place] [address] Electronically authenticated by: [id number] Y Date: 02/20/2025 08:37 Dictated By: Pamela Pisano M.D. Signed By: 02/20/2540 DD/ 6 TD/TT: Fine Arts Instructor:TBHRadiology, Radiologist, - 02/20/2025 [place] [address] Ultrasound Report Signed Patient: SANNA RENDON MR#: [id number] : 1985 Acct:[id number] Age/Sex: 39 / F ADM Date: 02/19/25 Loc: US Attending Dr: Wilton Herrmann D.O. Ordering Physician: Wilton Herrmann D.O. Date of Service: 02/19/25 Procedure(s): US OB growth Accession Number(s): [id number] cc: Wilton Herrmann D.O.; Physician,Non-Staff Tamia The [place] [id number] Patient Name: SANNA RENDON MRN: [facility]:[id number] date: 1985 Sex: F Assigned Patient Location: LAB Current Patient Location: Accession/Order Number: [id number] Exam Date: 02/19/2025 19:47 Report Date: 02/20/2025 08:37 At the request of: WILTON HERRMANN DO Procedure: US OB BPP w non-stress CLINICAL DATA: Third trimester evaluation Z34.93 ULTRASOUND OB GROWTH COMPARISON: 09/11/2024 There is a single live intrauterine gestation in breech presentation. There is cardiac and somatic activity with heart rate of 142 bpm. The amniotic fluid index measures 13.2 cm which is in normal range. The following measurements were obtained: Biparietal diameter 7.1 cm 28 weeks 3 days 13% Head circumference 27.1 cm 29 weeks 4 days 21% Abdominal circumference 24.7 cm 29 weeks 0 days 30% Femur length 7.8 cm 30 weeks 1 day 56% The composite ultrasound age based on these measurements is 29 weeks 2 days +/- 2 weeks 0 days. This correlates with the reported gestational age. The estimated weight is 3 lbs. 1 oz. [...] or more episodes of breathing lasting at least 30 seconds [Y] 2/2 SARAHI: A single deepest vertical pocket of amniotic fluid greater than 2 cm [Y] 2/2 SARAHI: 13.2 cm Total score: 8/8 IMPRESSION: NORMAL BIOPHYSICAL PROFILE Impression dictated by: Pamela Pisano M.D. 02/20/2025 8:37 AM Dictation Location: [place] [address] Electronically authenticated by: [id number] Y Date: 02/20/2025 08:37 Dictated By: Pamela Pisano M.D. Signed By: 02/20/25 0840 DD/ 0837 TD/TT: Fine Arts Instructor: SHILOH HealthcareUrinalysis macro (dipstick) panel (U)on 06-92-7701Rbhxyrdfd, UA NegativeNegative - 4(70) +++ mg/dLNOMS HealthcareBlood, UANegativeNegative - 50 Max/mcLNOMS HealthcareClarity, UAClearNOMS HealthcareColor, UAYellowNOMS HealthcareGlucose, UANegativeNegative - 2000(110) ++++ mg/dLNOMS Healthcare Interpretation and review of laboratory resultsAbnormalNOMS HealthcareKetones, UANegativeNegative - 160(16) ++++ mg/dLNOMS HealthcareLeukocytes, UATrace Negative - 500+++ John/mcLNOMS HealthcareNitrite, UANegativeNegative - Positive NOM[facility] HealthcarepH, UA6.55 - 9NOMS HealthcareProtein, UANegativeNegative - 2000(20) ++++ mg/dLNOMS HealthcareSpec Grav, UA1.0051 - 1.03[facility] Urobilinogen, UA2.00.2 - 12 mg/dLNOMS [facility] BeachwoodNOTN HealthcareCNPNon 01-29-2025 CNPNTelephone (HEMASA) SANNA RENDON ([id number]) 1985 F Date Time Provider Department 01/29/25 [...] Date Reviewed: 12/24/2024 Reviewed by: Katherine Negrete APRN.PEN RULER OPERATOR - Fully Assessed Reason for Visit: Fatigue [...] 05/28/2024 Encounter Status:Closed by RACHAEL JOHNSON on 01/30/25[facility]Alex 94-80-6186YTYOLaotktupw (HEMASA) JUSTICE,KATIE ([id number]) 1985 F Date Time Provider Department 01/26/25 RACHAEL JOHNSON HEMNANI During your visit today, we recorded the [...] Date Reviewed: 12/24/2024 Reviewed by: Katherine Negrete APRN.PEN RULER OPERATOR - Fully Assessed Prescriptions as of 01/26/2025 [...] 05/28/2024 Encounter Status:Closed by RACHAEL JOHNSON on 01/26/25NoSelect [facility], Beachwoodalysis macro (dipstick) panel (U)on 08-85-8322Vtvuthsge, UANegative Negative - 4(70) +++ mg/dLNOMS HealthcareBlood, [...] HealthcareUrobilinogen, UA0.20.2 - 12 mg/dLNOMS HealthcareNOMS HealthcareTSHon 75-35-4636XLZ Qn1.85 m[IU]/LNormal 0.34-5.60[facility] Agnes HospitalComment on above:Performed By: #### [id number] #### [facility] [address] [place], [place] [address]Ztqnocmrcy macro (dipstick) panel (U)on 32-65-3359Wrboxssyr, UA NegativeNegative - 4(70) +++ mg/dLNOMS HealthcareBlood, UANegativeNegative - 50 Max/mcLNOMS HealthcareClarity, UAClearNOMS HealthcareColor, UAYellowNOMS HealthcareGlucose, UANegativeNegative - 2000(110) ++++ mg/dLNOMS Healthcare Interpretation and review of laboratory resultsNormalNOMS HealthcareKetones, UA NegativeNegative - 160(16) ++++ mg/dLNOMS HealthcareLeukocytes, UANegative Negative - 500+++ John/mcLNOMS HealthcareNitrite, UANegativeNegative - Positive NOMS HealthcarepH, UA75 - 9NOMS HealthcareProtein, UANegativeNegative - 2000(20) ++++ mg/dLNOMS HealthcareSpec Grav, UA1.011 - 1.03NOMS HealthcareUrobilinogen, UA1.00.2 - 12 mg/dLNOMS HealthcareNOMS HealthcareCBC W Auto Differential panel (Bld)on 10-37-3390Bsksyaxbr (Bld) [#/Vol]10*3/uLNormal<0.11COhioHealth Nelsonville Health CenterComment on above:Order Comment: Specimen Type: BLOOD SPECIMENOrdering Facility: [facility] Address:[address] [place] [address]Fcmddrlbw By: #### 90837-5 ####[facility] LABCLIA [id number] [place], [place] [address]Qcyfxtjxp/100 WBC (Bld)0.2 % NormalOur Lady of Mercy Hospital on above:Order Comment: Specimen Type: BLOOD SPECIMENOrdering Facility: [facility] Address:[address] [place], [place] [address]Performed By: #### 91819-4 ####[facility] LABIA [id number] [place] [address] Differential cell count method Nom (Bld)AutoNormalClevelAngel Medical Center Comment on above:Order Comment: Specimen Type: BLOOD SPECIMENOrdering Facility: [facility] Address:[address] [place] [address] Performed By: #### 00594-4 ####[facility] LABIA [id number] [place], [place] [address]Crorootggfy (Bld) [#/Vol]0.03 10*3/uLNormal<0.46[facility] on above:Order Comment: Specimen Type: BLOOD SPECIMENOrdering Facility: [facility] Address:[address] [place], [place] [address]Performed By: #### 54486-4 ####[facility] LABCLIA [id number] [place], [place] [address]Oxhfubebzpr/100 WBC (Bld)0.4 %NormalOur Lady of Mercy Hospital on above:Order Comment: Specimen Type: BLOOD SPECIMENOrdering Facility: [facility] Address:[address] [place], [place] [address]Performed By: #### 03819-6 ####[facility] LABIA [id number] [place], [place] [address]Hiyofyknngk distribution width (RBC) [Ratio]13.5 %Uflnip51.5-15.0[facility] on above: Order Comment: Specimen Type: BLOOD SPECIMENOrdering Facility: [facility] Address:[address] [place], [place] [address]Performed By: #### 44736- 8 ####[facility] LABCLIA [id number] [place], [place] [address]Ppogzbigcz (Bld) [Volume fraction]34.6 %Low36.0-46.0 [facility] on above:Order Comment: Specimen Type: BLOOD SPECIMENOrdering Facility: [facility] Address:[address] [place], [place] [address]Performed By: #### 59297-6 ####[facility] LABCLIA [id number] [place], [place] [address]Tasmtpllce (Bld) [Mass/Vol]12.0 g/sRRpssmq20.5-15.5CAultman Hospital on above: Order Comment: Specimen Type: BLOOD SPECIMENOrdering Facility: [facility] Address:[address] [place], [place] [address]Performed By: #### 36247- 8 ####[facility] LABCLIA [id number] [place], [place] [address]Kwpuhmct granulocytes (Bld) [#/Vol]0.04 10*3/uLNormal <0.10[facility] on above:Order Comment: Specimen Type: BLOOD SPECIMENOrdering Facility: [facility] Address:[address] [place], [place] [address]Performed By: #### 19584-1 ####[facility] LABCLIA [id number] [place], [place] [address]Yyalkeoh granulocytes/100 WBC (Bld)0.5 %NormalOur Lady of Mercy Hospital on above: Order Comment: Specimen Type: BLOOD SPECIMENOrdering Facility: [facility] Address:[address] [place], [place] [address]Performed By: #### 01068- 8 ####[facility] LABCLIA [id number] [place], [place] [address]Jtmljawzggz (Bld) [#/Vol]2.45 10*3/uLNormal1.00-4.00 [facility] on above:Order Comment: Specimen Type: BLOOD SPECIMENOrdering Facility: [facility] Address:[address] [place], [place] [address]Performed By: #### 24962-7 ####[facility] LABCLIA [id number] [place], [place] [address]Vfzhbnnvgmf/100 WBC (Bld)28.7 %NormalOur Lady of Mercy Hospital on above:Order Comment: Specimen Type: BLOOD SPECIMENOrdering Facility: [facility] Address:[address] [place], [place] [address]Performed By: #### 03638-7 ####[facility] LABCLIA [id number] [place], [place] [address]TJE (RBC) [Entitic mass]31.6 fvEnefsn37.0-34.0[facility] on above:Order Comment: Specimen Type: BLOOD SPECIMENOrdering Facility: [facility] Address:[address] [place], [place] [address]Performed By: #### 25258-3 ####[facility] LABCLIA [id number] [place], [place] [address]KUWS (RBC) [Mass/Vol]34.7 g/uGNyrcsa78.5-36.0[facility] on above: Order Comment: Specimen Type: BLOOD SPECIMENOrdering Facility: [facility] Address:[address] [place], [place] [address]Performed By: #### 24605- 8 ####[facility] LABCLIA [id number] [place], [place] [address]VJA (RBC) [Entitic vol]91.1 rXHytjcd22.0-100.0[facility] on above:Order Comment: Specimen Type: BLOOD SPECIMENOrdering Facility: [facility] Address:[address] [place], [place] [address]Performed By: #### 76977-6 ####[facility] LABCLIA [id number] [place], [place] [address]Qhdbrbaby (Bld) [#/Vol]0.44 10*3/uLNormal<0.87[facility] on above:Order Comment: Specimen Type: BLOOD SPECIMENOrdering Facility: [facility] Address:[address] [place], [place] [address]Performed By: #### 00385- 8 ####[facility] LABCLIA [id number] [place], [place] [address]Gcooehjik/100 WBC (Bld)5.1 %NormalOur Lady of Mercy Hospital on above:Order Comment: Specimen Type: BLOOD SPECIMENOrdering Facility: [facility] Address:[address] [place], [place] [address]Performed By: #### 88007-5 ####[facility] LABCLIA [id number] [place], [place] [address]Ftgqduhekxp (Bld) [#/Vol]5.57 10*3/uLNormal1.45-7.50[facility] on above:Order Comment: Specimen Type: BLOOD SPECIMENOrdering Facility: [facility] Address:[address] [place], [place] [address]Performed By: #### 68950-3 ####[facility] LABCLIA [id number] [place], [place] [address]Uybaqxplaxp/100 WBC (Bld)65.1 %NormalOur Lady of Mercy Hospital on above:Order Comment: Specimen Type: BLOOD SPECIMENOrdering Facility: [facility] Address:[address] [place], [place] [address]Performed By: #### 52842-7 ####[facility] LABIA [id number] [place], [place] [address]Rfqlxqbbx RBC (Bld) [#/Vol] 10*3/uLNormal<0.01[facility] on above:Order Comment: Specimen Type: BLOOD SPECIMENOrdering Facility: [facility] Address:[address] [place], [place] [address]Performed By: #### 64994-4 ####[facility] LABCLIA [id number] [place], [place] [address]Kijnvpkdc RBC/100 WBC (Bld) [Ratio]0.0 /100 WBCNormal [facility] on above:Order Comment: Specimen Type: BLOOD SPECIMENOrdering Facility: [facility] Address:[address] [place], [place] [address]Performed By: #### 06120-4 ####[facility] LABCLIA [id number] [place], [place] [address]Xmhphshb mean volume (Bld) [Entitic vol]9.7 fLNormal9.0-12.7CAultman [facility] on above:Order Comment: Specimen Type: BLOOD SPECIMENOrdering Facility: [facility] Address:[address] [place] [address] Performed By: #### 03196-6 ####[facility] LABCLIA [id number] [place], [place] [address]Eiuigahqc (Bld) [#/Vol]260 10*3/nEQqczly061-530DlblxjrxcOur Lady of Mercy Hospital on above:Order Comment: Specimen Type: BLOOD SPECIMENOrdering Facility: [facility] Address:[address] [place], [place] [address]Performed By: #### 21278-7 ####[facility] LABCLIA [id number] [place], [place] [address]OZK (Bld) [#/Vol]3.80 10*6/uLLow3.90-5.20[facility] on above:Order Comment: Specimen Type: BLOOD SPECIMENOrdering Facility: [facility] Address:[address] [place], [place] [address]Performed By: #### 38183-9 ####[facility] LABCLIA [id number] [place], [place] [address]RDI (Bld) [#/Vol]8.55 10*3/uL Normal3.70-11.00[facility] HospitalComment on above:Order Comment: Specimen Type: BLOOD SPECIMENOrdering Facility: [facility] Address:[address] [place], [place] [address]Xvpmmkmvd By: #### 44038-9 ####[facility] LABCLIA [id number] [place], [place] [address]GKBUPFjw 86-92-4146TVYDHSJyrzi (SP) Office (HEMASA) JUSTICE,KATIE ([id number]) 1985 F Date Time Provider Department 12/23/24 11:30 AM KATHERINE NEGRETE During your visit today, we recorded the following information about you: Temperature Pulse Respiration Blood pressure 97.6 degrees 80/minute 16/minute 103/69 Weight Height 94.4 kg 1.677 m Katherine Negrete APRN.CNP 12/24/2024 9:07 PM Signed NAME: Sanna Rendon CLINIC NO.: [id number] DATE OF SERVICE: December 23, 2024 (Arsh) [...] later in 2018. These were found in [place], [place]. I don't have access to these [...] rash shortly before presenting to [facility] in 2016 with headaches and was diagnosed [...] vitamin D supplementat (more content not included)...Normal [facility] HospitalComprehensive metabolic 2000 panelon 17-48-9209Nzgguek [Mass/Vol]4.1 g/dLNormal3.9-4.9CAult[facility] on above:Order Comment: Specimen Type: BLOOD SPECIMENOrdering Facility: [facility] Address:[address] [place], [place] [address]Cgxdzypnf By: #### 36289- 8 ####[facility] LABCLIA [id number] [place], [place] [address]CUM [Catalytic activity/Vol]43 U/OLdyxrf15-806KicmufkwhOur Lady of Mercy Hospital on above:Order Comment: Specimen Type: BLOOD SPECIMENOrdering Facility: [facility] Address:[address] [place], [place] [address]Performed By: #### 29489-9 ####[facility] LABCLIA [id number] [facility]ALSEM[facility] MEDICAL CENTERTEETEEBEL[place], [place] [address]YQG [Catalytic activity/Vol]11 U/LNormal7-38[facility] on above:Order Comment: Specimen Type: BLOOD SPECIMENOrdering Facility: [facility] Address:[address] [place], [place] [address]Performed By: #### 41469- 8 ####[facility] LABCLIA [id number] [facility] [place] [address]Upkzm gap [Moles/Vol]12 mmol/LNormal8-15[facility] on above:Order Comment: Specimen Type: BLOOD SPECIMENOrdering Facility: [facility] Address:[address] [place], [place] [address]Performed By: #### 12856-0 ####[facility] LABCLIA [id number] [place], [place] [address]JRY [Catalytic activity/Vol]12 U/USlq63-83JunsclqqlOur Lady of Mercy Hospital on above:Order Comment: Specimen Type: BLOOD SPECIMENOrdering Facility: [facility] Address:[address] [place], [place] [address]Performed By: #### 45899-0 ####[facility] LABCLIA [id number] [place] [address] Bilirubin [Mass/Vol]0.2 mg/dLNormal0.2-1.3CA[facility] on above:Order Comment: Specimen Type: BLOOD SPECIMENOrdering Facility: [facility] Address:[address] [place], [place] [address]Performed By: #### 02927-7 ####[facility] LABCLIA [id number] [place], [place] [address]Obnruuj [Mass/Vol]9.5 mg/dLNormal8.5-10.2[facility] on above:Order Comment: Specimen Type: BLOOD SPECIMENOrdering Facility: [facility] Address:[address] [place], [place] [address]Performed By: #### 81905-2 ####[facility] LABCLIA [id number] [place], [place] [address]Umhvwyhy [Moles/Vol]98 mmol/IVfvxny08-545DgtxqjkrfOur Lady of Mercy Hospital on above:Order Comment: Specimen Type: BLOOD SPECIMENOrdering Facility: [facility] Address:[address] [place], [place] [address]Performed By: #### 20022- 8 ####[facility] LABCLIA [id number] [place], [place] [address]KF9 [Moles/Vol]20 mmol/FXev00-21NvlvjsnlpOur Lady of Mercy Hospital on above:Order Comment: Specimen Type: BLOOD SPECIMENOrdering Facility: [facility] Address:[address] [place], [place] [address]Performed By: #### 09746-6 ####[facility] LABCLIA [id number] [place], [place] [address]Fxwbblhrxk [Mass/Vol]0.54 mg/dL Low0.58-0.96[facility] on above:Order Comment: Specimen Type: BLOOD SPECIMENOrdering Facility: [facility] Address:[address] [place], [place] [address]Performed By: #### 31533-1 ####[facility] LABIA [id number] [place] [address] eGFRcr SerPlBld CKD-EPI 8715582 mL/min/1.73m???Normal>=60[facility] on above:Order Comment: Specimen Type: BLOOD SPECIMENOrdering Facility: [facility] Address:[address] [place], [place] [address]Rsubff Comment: Estimated Glomerular Filtration Rate (eGFR) is [...] accurately reflect actual GFR. Performed By: #### 31204-7 ####[facility] LABCLIA [id number] [place], [place] [address]Mvbrqgg [Mass/Vol]104 mg/dLHigh 74-99[facility] on above:Order Comment: Specimen Type: BLOOD SPECIMENOrdering Facility: [facility] Address:[address] [place] [address]Xwlhid Comment: The [place] [employer] Association (ADA) provides guidance for cutoff [...] Standards of Medical Care in Diabetes 2016, [place] [employer]. Diabetes Care. 2016.39(Suppl 1).Performed By: #### 30064-9 ####[facility] LABCLIA [id number] [place], [place] [address]Rbstjpwsd [Moles/Vol]4.0 mmol/LNormal3.7-5.1[facility] on above:Order Comment: Specimen Type: BLOOD SPECIMENOrdering Facility: [facility] Address:[address] [place], [place] [address]Ylrjhokpu By: #### 16323-4 ####[facility] LABCLIA [id number] [place], [place] [address]Scifpid [Mass/Vol]6.7 g/dLNormal6.3-8.0[facility] on above:Order Comment: Specimen Type: BLOOD SPECIMENOrdering Facility: [facility] Address:[address] [place], [place] [address]Performed By: #### 76999- 8 ####[facility] LABCLIA [id number] [place], [place] [address]Zersyh [Moles/Vol]130 mmol/DVyg538-286PrraxubyvOur Lady of Mercy Hospital on above:Order Comment: Specimen Type: BLOOD SPECIMENOrdering Facility: [facility] Address:[address] [place], [place] [address]Performed By: #### 94691-9 ####[facility] LABCLIA [id number] [place], [place] [address]Tqnm nitrogen [Mass/Vol]7 mg/dL Normal7-21[facility] on above:Order Comment: Specimen Type: BLOOD SPECIMENOrdering Facility: [facility] Address:[address] [place], [place] [address]Performed By: #### 89989-3 ####[facility] LABCLIA [id number] [place] [address] Ferritin SerPl-mCncon 90-77-2614Kfcawjfi [Mass/Vol]43.5 ng/fVSbruqo84.7-205.1 [facility] on above:Order Comment: Specimen Type: BLOOD SPECIMENOrdering Facility: [facility] Address:[address] [place], [place] [address]Performed By: #### 2276-4, 09369-9, 2132-9 ####[facility] LABCLIA [id number] [place] [address] [place] OF AMERICAIron and Iron binding capacity panelon 12-23-2024 Iron [Mass/Vol]80 ug/eYNpmrib07-346ZmmtzlfvqOur Lady of Mercy Hospital on above: Order Comment: Specimen Type: BLOOD SPECIMENOrdering Facility: [facility] Address:[address] [place], [place] [address]Performed By: #### 2276- 4, 74956-2, 2131-12 ####[facility] LABCLIA [id number] [address] [address] [place] OF AMERICAIron binding capacity [Mass/Vol]437 ug/oIQjdu446-125JdpsfwofqOur Lady of Mercy Hospital on above:Order Comment: Specimen Type: BLOOD SPECIMENOrdering Facility: [facility] Address:[address] [place], [place] [address]Performed By: #### 2276-4, 13942-5, 2131-12 ####[facility] LABCLIA [id number] [address] [address] [place] OF AMERICAIron/TIBC [Molar ratio]18.3 %Uiouve98.0-57.0[facility] on above: Order Comment: Specimen Type: BLOOD SPECIMENOrdering Facility: [facility] Address:[address] [place], [place] [address]Performed By: #### 2276- 4, 24710-8, 2131-12 ####[facility] LABCLIA [id number] [address] [address] [place] OF AMERICAVit B12 SerPl-mCncon 08-50-7785Gicgognak (Vitamin B12) [Mass/Vol]328 pg/jKHpxnbk351-6438 [facility] on above:Order Comment: Specimen Type: BLOOD SPECIMENOrdering Facility: [facility] Address:[address] [place], [place] [address]Performed By: #### 2276-4, 19654-6, 2131-12 ####[facility] LABCLIA [id number] [address] [address] [place] OF AMERICATB UA (CLEAN/CATCH) EMERGENCY CARE TECH/MICRO IF IND.on 06-78-6485GEGPZISBH URINENegativeNEGATIVENOMS HealthcareBLOOD URINENegative NEGATIVENOMS HealthcareClarity (U)CLEARCLEARNOMS HealthcareColor (U)LT. YELLOW YELLOWNOMS HealthcareGLUCOSE URINE UANegativeNEGATIVE mg/dLNOMS Healthcare Interpretation and review of laboratory resultsAbnormalNOMS HealthcareKetones Ql (U)NegativeNEGATIVE mg/dLNOMS HealthcareLeukocyte esterase Test strip Ql (U) SMALLAbnormalNEGATIVENOMS HealthcareNITRITE URINENegativeNEGATIVENOMS Healthcare pH (U)6.0 [pH]5.0 - 9.0NOMS HealthcarePROTEIN URINENegativeNEG/TRACE mg/dLNOMS HealthcareSPECIFIC GRAVITY URINE<=1.654Wfgrxynf0.005 - 1.025NOMS HealthcareURINE MICROSCOPIC INDICATEDYESNOMS HealthcareUROBILINOGEN URINE0.2 EU/dL0.2 - 1.0 EU/dLNOMS HealthcareCLINISYNCNOMS HealthcareUS OB CERVICAL LENGTHon 12-16-2024 [place] [address] Ultrasound Report Signed Patient: SANNA RENDON MR#: [id number] : 1985 Acct:[id number] Age/Sex: 39 / F ADM Date: Loc: [facility] Attending Dr: Wilton Herrmann D.O. Ordering Physician: Wilton Herrmann D.O. Date of Service: 12/16/24 Procedure(s): US OB cervical length Accession Number(s): [id number] cc: Wilton Herrmann D.O.; PENELOPE CASAS [place] [phone] Patient Name: SANNA RENDON MRN: [id number] date: 1985 Sex: F Assigned Patient Location: [facility] Current Patient Location: Accession/Order Number: [id number] Exam Date: 12/16/2024 20:39 Report Date: 12/16/2024 [...] Beltrán M.D. 12/16/2024 8:41 PM [facility]ictation [facility] Electronically authenticated by: [id number] Y Date: 12/16/2024 20:41 Dictated By: Robert Beltrán D.O. Signed By: 12/16/242042 DD/ 40 TD/TT: Fine Arts Instructor:MANUELHRadiology, Radiologist, - 12/16/2024 [place] [address] Ultrasound Report Signed Patient: SANNA RENDON MR#: [id number] : 1985 Acct:[id number] Age/Sex: 39 / F ADM Date: Loc: [facility] 251-[address]: Wilton Herrmann D.O. Ordering Physician: Wilton Herrmann D.O. Date of Service: 12/16/24 Procedure(s): US OB cervical length Accession Number(s): [id number] cc: Wilton Herrmann D.O.; PENELOPE CASAS [place] [id number] Patient Name: ASNNA RENDON MRN: [id number] date: 1985 Sex: F Assigned Patient Location: [facility] Current Patient Location: Accession/Order Number: [id number] Exam Date: 12/16/2024 20:39 Report Date: 12/16/2024 [...] Beltrán M.D. 12/16/2024 8:41 PM Dictation Location[facility] Electronically authenticated by: [id number] Y Date: 12/16/2024 20:41 Dictated By: Robert Beltrán D.O. Signed By: 12/16/242042 DD/ 40 TD/TT: Fine Arts Instructor: NOMS HealthcareRadiology Study observation (narrative)NOMS HealthcareUS OB CERVICAL LENGTHOrdered By: Radiologist Radiology on 94-98-5486HRHF Healthcare Work Phone: aLL THYROID STIM HORMONEon 21-60-8206LSK Qn1.508 m[IU]/LNOMS HealthcareCLINISYNCNOMS HealthcareUrinalysis macro (dipstick) panel (U)on 84-81-9200Ynggkrpsz, UANegativeNegative - 4(70) +++ mg/dLNOTN Healthcare Blood, UANegativeNegative - 50 Max/mcLNOTN HealthcareClarity, UAClearNOTN HealthcareColor, UAYellowNOTN HealthcareGlucose, UANegativeNegative - 2000(110) ++++ mg/dLNOTN HealthcareInterpretation and review of laboratory resultsNormal NOM HealthcareKetones, UANegativeNegative - 160(16) ++++ mg/dLNOTN Healthcare Leukocytes, UANegativeNegative - 500+++ John/mcLNOTN HealthcareNitrite, UA NegativeNegative - PositiveNOMS HealthcarepH, UA65 - 9NOMS HealthcareProtein, UA NegativeNegative - 2000(20) ++++ mg/dLNOMS HealthcareSpec Grav, UA1.011 - 1.03 NOMS HealthcareUrobilinogen, UA1.00.2 - 12 mg/dLNOTN HealthcareNOMS Healthcare Urinalysis macro (dipstick) panel (U)on 86-67-7147Xosxvxqwg, UANegativeNegative - 4(70) +++ mg/dLNOMS HealthcareBlood, UANegativeNegative [...] 12 mg/dLNOMS HealthcareNOMS HealthcareGlucose random or fasting- [facility] 11-19-2024 External Glucose Fasting Or Random (Fbs)94[facility] CenterUrinalysis macro (dipstick) panel (U)on 87-37-6788Mnpdctvdm, UA NegativeNegative - 4(70) +++ mg/dLNOMS HealthcareBlood, UANegativeNegative - 50 Max/mcLNOMS HealthcareClarity, UAClearNOMS HealthcareColor, UAYellowNOMS HealthcareGlucose, UANegativeNegative - 2000(110) ++++ mg/dLNOMS Healthcare Interpretation and review of laboratory resultsNormalNOMS HealthcareKetones, UA NegativeNegative - 160(16) ++++ mg/dLNOMS HealthcareLeukocytes, UANegative Negative - 500+++ John/mcLNOMS HealthcareNitrite, UANegativeNegative - Positive NOMS HealthcarepH, UA75 - 9NOMS HealthcareProtein, UANegativeNegative - 2000(20) ++++ mg/dLNOMS HealthcareSpec Grav, UA1.011 - 1.03NOMS HealthcareUrobilinogen, UA0.20.2 - 12 mg/dLNOMS HealthcareNOMS Srxnvulhvw15([place])D3 [facility] 50-46-351513481205-fpxpeobbdbvpkj D3 [Mass/Vol]32.1 ng/rDUfkcqi88.0-80.0[facility] on above:Order Comment: Specimen Type: BLOOD SPECIMENOrdering Facility: [facility] Address:[address] [place], [place] [address]Result Comment: Classification of 25 [place] Vitamin D status: Deficiency/Insufficiency: < or = 30 ng/ml. Sufficiency/Optimal Levels: 31-80 ng/mL Toxicity: > 100 ng/mL. Test performed by chemiluminescent immunoassay.Performed By: #### 1989-3 ####[facility] LABCLIA [id number] [address] Auto Differential panel (Bld)on 73-38-0739Infhozwep (Bld) [#/Vol]0.03 10*3/uLNormal<0.11[facility] on above:Order Comment: Specimen Type: BLOOD SPECIMENOrdering Facility: [facility] Address:[address] [place], [place] [address]Performed By: #### 65849-3 ####[facility] LABCLIA [id number] [place], [place] [address]Xnsfwugba/100 WBC (Bld)0.3 % NormalOur Lady of Mercy Hospital on above:Order Comment: Specimen Type: BLOOD SPECIMENOrdering Facility: [facility] Address:[address] [place], [place] [address]Performed By: #### 62984-2 ####[facility] LABCLIA [id number] [place] [address] Differential cell count method Nom (Bld)AutoNormalCOhioHealth Nelsonville [facility] Comment on above:Order Comment: Specimen Type: BLOOD SPECIMENOrdering Facility: [facility] Address:[address] [place] [address] Performed By: #### 38386-5 ####[facility] LABCLIA [id number] [place], [place] [address]Ufbjtngwecr (Bld) [#/Vol]0.05 10*3/uLNormal<0.46[facility] on above:Order Comment: Specimen Type: BLOOD SPECIMENOrdering Facility: [facility] Address:[address] [place], [place] [address]Performed By: #### 69794-4 ####[facility] LABCLIA [id number] [place], [place] [address]Ujrdfarpsqu/100 WBC (Bld)0.5 %NormalOur Lady of Mercy Hospital on above:Order Comment: Specimen Type: BLOOD SPECIMENOrdering Facility: [facility] Address:[address] [place], [place] [address]Performed By: #### 52261-4 ####[facility] LABIA [id number] [place], [place] [address]Trqoiutgulz distribution width (RBC) [Ratio]14.5 %Iywkch74.5-15.0[facility] on above: Order Comment: Specimen Type: BLOOD SPECIMENOrdering Facility: [facility] Address:[address] [place], [place] [address]Performed By: #### 04859- 8 ####[facility] LABCLIA [id number] [place], [place] [address]Cjzdeizshi (Bld) [Volume fraction]36.9 %Mgkcne66.0-46.0 [facility] on above:Order Comment: Specimen Type: BLOOD SPECIMENOrdering Facility: [facility] Address:[address] [place], [place] [address]Performed By: #### 22269-4 ####[facility] LABIA [id number] [place], [place] [address]Ksjmpdektv (Bld) [Mass/Vol]13.0 g/tCCihvbk65.5-15.5[facility] on above: Order Comment: Specimen Type: BLOOD SPECIMENOrdering Facility: [facility] Address:[address] [place], [place] [address]Performed By: #### 42049- 8 ####[facility] LABCLIA [id number] [place], [place] [address]Lavrzbio granulocytes (Bld) [#/Vol]10*3/uLNormal<0.10 [facility] on above:Order Comment: Specimen Type: BLOOD SPECIMENOrdering Facility: [facility] Address:[address] [place], [place] [address]Performed By: #### 38075-2 ####[facility] LABCLIA [id number] [place], [place] [address]Vbjsoqzd granulocytes/100 WBC (Bld)0.2 %NormalOur Lady of Mercy Hospital on above: Order Comment: Specimen Type: BLOOD SPECIMENOrdering Facility: [facility] Address:[address] [place], [place] [address]Performed By: #### 75246- 8 ####[facility] LABCLIA [id number] [place], [place] [address]Dxwgvhywfxd (Bld) [#/Vol]2.50 10*3/uLNormal1.00-4.00 [facility] on above:Order Comment: Specimen Type: BLOOD SPECIMENOrdering Facility: [facility] Address:[address] [place], [place] [address]Performed By: #### 78099-7 ####[facility] LABIA [id number] [place], [place] [address]Fcijyjwhubb/100 WBC (Bld)26.3 %NormalOur Lady of Mercy Hospital on above:Order Comment: Specimen Type: BLOOD SPECIMENOrdering Facility: [facility] Address:[address] [place], [place] [address]Performed By: #### 22251-0 ####[facility] LABCLIA [id number] [place], [place] [address]ZKB (RBC) [Entitic mass]30.6 eoDpwsmm49.0-34.0[facility] on above:Order Comment: Specimen Type: BLOOD SPECIMENOrdering Facility: [facility] Address:[address] [place], [place] [address]Performed By: #### 62289-6 ####[facility] LABCLIA [id number] [place], [place] [address]QHXJ (RBC) [Mass/Vol]35.2 g/aGIsxsch55.5-36.0[facility] on above: Order Comment: Specimen Type: BLOOD SPECIMENOrdering Facility: [facility] Address:[address] [place], [place] [address]Performed By: #### 15019- 8 ####[facility] LABCLIA [id number] [place], [place] [address]ATR (RBC) [Entitic vol]86.8 cIVbtgjz87.0-100.0[facility] on above:Order Comment: Specimen Type: BLOOD SPECIMENOrdering Facility: [facility] Address:[address] [place], [place] [address]Performed By: #### 94179-5 ####[facility] LABIA [id number] [place], [place] [address]Pbiipbwka (Bld) [#/Vol]0.44 10*3/uLNormal<0.87[facility] on above:Order Comment: Specimen Type: BLOOD SPECIMENOrdering Facility: [facility] Address:[address] [place], [place] [address]Performed By: #### 80554- 8 ####[facility] LABCLIA [id number] [place], [place] [address]Utmxwjpwl/100 WBC (Bld)4.6 %NormalOur Lady of Mercy Hospital on above:Order Comment: Specimen Type: BLOOD SPECIMENOrdering Facility: [facility] Address:[address] [place], [place] [address]Performed By: #### 71104-9 ####[facility] LABCLIA [id number] [place], [place] [address]Wxvysfrpmie (Bld) [#/Vol]6.48 10*3/uLNormal1.45-7.50[facility] on above:Order Comment: Specimen Type: BLOOD SPECIMENOrdering Facility: [facility] Address:[address] [place], [place] [address]Performed By: #### 85822-8 ####[facility] LABCLIA [id number] [place], [place] [address]Ensxunertby/100 WBC (Bld)68.1 %NormalOur Lady of Mercy [facility] on above:Order Comment: Specimen Type: BLOOD SPECIMENOrdering Facility: [facility] Address:[address] [place], [place] [address]Performed By: #### 62886-1 ####[facility] LABCLIA [id number] [place], [place] [address]Zlrbbjanv RBC (Bld) [#/Vol] 10*3/uLNormal<0.01[facility] on above:Order Comment: Specimen Type: BLOOD SPECIMENOrdering Facility: [facility] Address:[address] [place], [place] [address]Performed By: #### 72908-1 ####[facility] LABCLIA [id number] [place], [place] [address]Mvjqavyjg RBC/100 WBC (Bld) [Ratio]0.0 /100 WBCNormal [facility] on above:Order Comment: Specimen Type: BLOOD SPECIMENOrdering Facility: [facility] Address:[address] [place], [place] [address]Performed By: #### 29127-4 ####[facility] LABIA [id number] [place], [place] [address]Ozspgglm mean volume (Bld) [Entitic vol]9.8 fLNormal9.0-12.7[facility] on above:Order Comment: Specimen Type: BLOOD SPECIMENOrdering Facility: [facility] Address:[address] [place] [address] Performed By: #### 75921-0 ####[facility] LABCLIA [id number] [place], [place] [address]Lkkwqeaww (Bld) [#/Vol]327 10*3/vDKsevlr876-327PljiyofgqOur [facility] of [facility] on above:Order Comment: Specimen Type: BLOOD SPECIMENOrdering Facility: [facility] Address:[address] [place], [place] [address]Performed By: #### 74988-9 ####[facility] LABIA [id number] [place], [place] [address]GCD (Bld) [#/Vol]4.25 10*6/uLNormal3.90-5.20[facility] on above:Order Comment: Specimen Type: BLOOD SPECIMENOrdering Facility: [facility] Address:[address] [place], [place] [address]Performed By: #### 10000-4 ####[facility] LABIA [id number] [place], [place] [address]VJP (Bld) [#/Vol]9.52 10*3/uLNormal3.70-11.00[facility] on above: Order Comment: Specimen Type: BLOOD SPECIMENOrdering Facility: [facility] Address:[address] [place], [place] [address]Performed By: #### 35869- 8 ####[facility] LABIA [id number] [place], [place] [address]IWSZEKls 20-88-5782RQOEJYSrfgj (SP) Office ([place]AS[place]) SANNA RENDON ([id number]) 1985 F Date Time Provider Department 10/28/24 2:30 PM KATHERINE NEGRETE During your visit today, we recorded the following information about you: Temperature Pulse Respiration Blood pressure 97 degrees 82/minute 16/minute 122/77 Weight Last Period 94.1 kg 10/28/24 Katherine Negrete APRN.PEN RULER OPERATOR 10/29/2024 9:44 PM Signed NAME: Sanna Rendon CLINIC NO.: [id number] DATE OF SERVICE: October 28, 2024 (Arsh) [...] later in 2018. These were found in [place], [place]. I don't have access to these [...] rash shortly before presenting to [facility] in 2016 with headaches and was diagnosed [...] negative. 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 She denies further questions, [...] 05/28/2024 Encounter Status:Closed by RACHAEL JOHNSON on 11/05/24NormalCMount Carmel Health Systemprehensive metabolic 2000 panelon 99-79-2822Drqlebx [Mass/Vol]4.4 g/dLNormal3.9-4.9CAult[facility] on above:Order Comment: Specimen Type: BLOOD SPECIMENOrdering Facility: [facility] Address:[address] [place], [place] [address]Performed By: #### 45813-9 ####[facility] LABCLIA [id number] [place], [place] [address]ZUE [Catalytic activity/Vol]55 U/HBdtuey34-762KmcswbjqhOur Lady of [facility]cy Hospital on above:Order Comment: Specimen Type: BLOOD SPECIMENOrdering Facility: [facility] Address:[address] [place], [place] [address]Performed By: #### 89280-3 ####[facility] LABCLIA [id number] [place], [place] [address]VFZ [Catalytic activity/Vol]18 U/LNormal7-38[facility] on above:Order Comment: Specimen Type: BLOOD SPECIMENOrdering Facility: [facility] Address:[address] [place], [place] [address]Performed By: #### 89453- 8 ####[facility] LABCLIA [id number] [place], [place] [address]Jebmk gap [Moles/Vol]12 mmol/LNormal8-15[facility] on above:Order Comment: Specimen Type: BLOOD SPECIMENOrdering Facility: [facility] Address:[address] [place], [place] [address]Performed By: #### 97990-8 ####[facility] LABCLIA [id number] [place] [address]ANM [Catalytic activity/Vol]13 U/NPeomvs96-89WzekwpmodOur Lady of Mercy Hospital on above:Order Comment: Specimen Type: BLOOD SPECIMENOrdering Facility: [facility] Address:[address] [place], [place] [address]Performed By: #### 36618-2 ####[facility] LABCLIA [id number] [place] [facility] [place] [address] Bilirubin [Mass/Vol]0.2 mg/dLNormal0.2-1.3[facility] on above:Order Comment: Specimen Type: BLOOD SPECIMENOrdering Facility: [facility] Address:[address] [place], [place] [address]Performed By: #### 20873-6 ####[facility] LABCLIA [id number] [place] [address]Rekwbfp [Mass/Vol]9.9 mg/dLNormal8.5-10.2CA[facility] on above:Order Comment: Specimen Type: BLOOD SPECIMENOrdering Facility: [facility] Address:[address] [place], [place] [address]Performed By: #### 11703-0 ####[facility] LABCLIA [id number] F[place]ENSEM[facility] MEDICAL CENTERVANES[place], [place] [address]Zvdcupzk [Moles/Vol]99 mmol/MTcwqck35-683DwhgffukzOur Lady of Mercy Hospital on above:Order Comment: Specimen Type: BLOOD SPECIMENOrdering Facility: [facility] Address:[address] [place], [place] [address]Performed By: #### 56959- 8 ####[facility] LABCLIA [id number] [place], [place] [address]PX9 [Moles/Vol]22 mmol/JJycrui44-28HkkbvhiwpOur Lady of Mercy Hospital on above:Order Comment: Specimen Type: BLOOD SPECIMENOrdering Facility: [facility] Address:[address] [place], [place] [address]Performed By: #### 82475-9 ####[facility] LABCLIA [id number] [place], [place] [address]Ciwhikczjq [Mass/Vol]0.60 mg/dL Normal0.58-0.96[facility] on above:Order Comment: Specimen Type: BLOOD SPECIMENOrdering Facility: [facility] Address:[address] [place], [place] [address]Performed By: #### 55983-9 ####[facility] LABIA [id number] [place], [place] [address]Hiwfajzleq and Glomerular filtration rate.predicted panel (S/P/Bld)117 mL/min/1.73m???Normal>=60[facility] on above:Order Comment: Specimen Type: BLOOD SPECIMENOrdering Facility: [facility] Address:[address] [place], [place] [address]Result Comment: Estimated Glomerular Filtration Rate (eGFR) is [...] not accurately reflect actual GFR.Performed By: #### 40593-1 ####[facility] LABCLIA [id number] [place], [place] [address]Lgytnes [Mass/Vol]101 mg/eWIxen67-25MqbyltoqpOur Lady of Mercy Hospital on above:Order Comment: Specimen Type: BLOOD SPECIMENOrdering Facility: [facility] Address:[address] [place], [place] [address]Result Comment: The [place] Diabetes Association (ADA) provides guidance for cutoff [...] Standards of Medical Care in Diabetes 2016, [place] Diabetes Association. Diabetes Care. 2016.39(Suppl 1).Performed By: #### 24557-3 ####[facility] LABCLIA [id number] [place], [place] [address]Wrziciwtn [Moles/Vol]3.5 mmol/LLow3.7-5.1[facility] on above:Order Comment: Specimen Type: BLOOD SPECIMENOrdering Facility: [facility] Address:[address] [place], [place] [address]Performed By: #### 62836-2 ####[facility] LABCLIA [id number] [place], [place] [address]Eznoemz [Mass/Vol]7.6 g/dL Normal6.3-8.0[facility] on above:Order Comment: Specimen Type: BLOOD SPECIMENOrdering Facility: [facility] Address:[address] [place], [place] [address]Performed By: #### 08023-7 ####[facility] LABCLIA [id number] [place] [address] Sodium [Moles/Vol]133 mmol/RGhq690-188OdxipmubfOur Lady of Mercy Hospital on above:Order Comment: Specimen Type: BLOOD SPECIMENOrdering Facility: [facility] Address:[address] [place], [place] [address]Performed By: #### 03496-8 ####[facility] LABCLIA [id number] [place], [place] [address]Jgvq nitrogen [Mass/Vol]7 mg/dLNormal7-21Greene Memorial HospitalComment on above:Order Comment: Specimen Type: BLOOD SPECIMENOrdering Facility: [facility] Address:[address] [place], [place] [address]Performed By: #### 39948-8 ####[facility] LABCLIA [id number] [place], [place] [address]Yocnxwgz SerPl-mCncon 86-72-1353Qgaxdlmm [Mass/Vol]99.6 ng/vFEpqfyi67.7-205.1[facility] on above:Order Comment: Specimen Type: BLOOD SPECIMENOrdering Facility: [facility] Address:[address] [place], [place] [address]Performed By: #### 2276-4, 2131-9, 26396-2, 3016-3 ####[facility] LABCLIA [id number] [place] [address] [place] AMERICAIron and Iron binding capacity panelon 84-13-5680Lovv [Mass/Vol]72 ug/aZAckvza86-449SmvkcsjtgGreene Memorial Hospital Comment on above:Order Comment: Specimen Type: BLOOD SPECIMENOrdering Facility: [facility] Address:[address] [place] [address] Performed By: #### 2276-4, 2131-9, 91690-6, 3016-3 ####[facility] LABCLIA [id number] [place] [address] [place] AMERICAIron binding capacity [Mass/Vol]399 ug/nIWdyj311-379RkawqpkbvGreene Memorial HospitalComascension borgess [facility] on above:Order Comment: Specimen Type: BLOOD SPECIMENOrdering Facility: [facility] Address:[address] [place], [place] [address]Performed By: #### 2276-4, 2131-9, 13329-5, 3016-3 ####[facility] LABCLIA [id number] [address] [address] [place] OF AMERICAIron/TIBC [Molar ratio]18.0 % Kgohcn62.0-57.0[facility] on above:Order Comment: Specimen Type: BLOOD SPECIMENOrdering Facility: [facility] Address:[address] [place], [place] [address]Performed By: #### 2276-4, 9, 45776-4, 3015-3 ####[facility] LABCLIA [id number] [place] [address] [place] [facility]ORS HOSPITALTSHon 10-28-2024 Thyroid Stimulating (3Rd Generation) Hormone/ Tsh1.25[facility] SerPl-aCncon 03-09-6388VUZ Qn1.250 m[IU]/LNormal 0.270-4.200[facility] on above:Order Comment: Specimen Type: BLOOD SPECIMENOrdering Facility: [facility] Address:[address] [place], [place] [address]Result Comment: If the patient is , TSH reference range varies by gestational period: First Trimester (weeks 9-12): 0.180-2.990 mIU/L Second Trimester: 0.110-3.980 mIU/L Third Trimester: 0.480-4.710 mIU/L Danny Varela et al. A Practical Approach for the Verifications and Determination of Site- and Trimester-Specific Reference Intervals for Thyroid Function tests in . Thyroid, 2019:29:3:412-420.Saeed Pan, et al. 2017 Guidelines of the [place] Thyroid Association for the Diagnosis and Management of Thyroid Disease during and the . Thyroid, 2017:27:3:315-389. Performed By: #### 2276-4, 9, 30535-4, 3015-3 ####[facility] LABCLIA [id number] [address] [address] [place] AMERICAVit B12 SerPl-mCncon 40-33-6932Puzumgegs (Vitamin B12) [Mass/Vol]483 pg/vXBvggfb721-1453CnmnqzdqdAultman Hospital on above: Order Comment: Specimen Type: BLOOD SPECIMENOrdering Facility: [facility] Address:[address] [address]EEANTH[place] [address]Performed By: #### 2276- 4, 2132-9, 39614-5, 3016-3 ####[facility] LABCLIA [id number] [place] [address] [facility] OF [facility]ORS HOSPITALCNPNon 37-97-1841CLWCRgdhmqboc (HEMASA) SANNA RENDON ([id number]) 1985 F Date Time Provider Department 10/24/24 [...] Date Reviewed: 08/26/2024 Reviewed by: Katherine Negrete APRN.PEN RULER OPERATOR - Fully Assessed Reason for Visit: Lab [...] 05/28/2024 Encounter Status:Closed by KAUR DUNHAM on 10/24/24[facility] OB TRANSVAGINALon 48-77-2526CW OB TRANSVAGINALEXAM: US OB TRANSVAGINAL HISTORY: Viability, [...] II, MD, PHD at 21-Oct-2024 08:31:21 AM [facility] TeleradiologyNormalNot AvailableComment on above:Order Comment: US OB VIABILITY PLEASE PERFORM TRANSVAGINAL ULTRASOUND IF INDICATED No LMP recorded.ALL CBC WITH AUTO DIFFon 07-89-8803BGUZJGXDC ABSOLUTE ZOEJ3XECP HealthcareBasophils/100 WBC (Bld)0.2 %0.2 - 2.0 %NOMS HealthcareEosinophils/100 WBC (Bld)0.4 %Low0.9 - 7.0 %NOMS HealthcareErythrocyte distribution width (RBC) [Ratio]14 %11.0 - 15.0 %NOMS HealthcareHematocrit (Bld) [Volume fraction]38.1 % 36.0 - 48.0 %NOMS HealthcareHemoglobin (Bld) [Mass/Vol]13.2 g/dL12.0 - 16.0 g/dL NOMS HealthcareIMMATURE GRANULOCYTES ABS AUTO0.03NOMS HealthcareImmature granulocytes/100 WBC (Bld)0.3 %0.0 - 0.5 %[facility]OMS HealthcareInterpretation and review of laboratory resultsAbnormalNOMS HealthcareLYMPHOCYTES ABSOLUTE AUTO2.6 NOMS HealthcareLymphocytes/100 WBC (Bld)29.1 %20.5 - 60.0 %NOMS HealthcareMCH (RBC) [Entitic mass]29.9 pg26.7 - 34.0 pgNOMS HealthcareMCHC (RBC) [Mass/Vol] 34.6 g/dL29.9 - 35.2 g/dLNOMS HealthcareMCV (RBC) [Entitic vol]86.2 fL81.0 - 99.0 fLNOMS HealthcareMONOCYTES ABSOLUTE AUTO0.6NOMS HealthcareMonocytes/100 WBC (Bld)7.2 %1.7 - 12.0 %NOMS HealthcareNEUTROPHILS ABSOLUTE AUTO5.6NODeaconess Incarnate Word Health System Neutrophils/100 WBC (Bld)62.8 %43.0 - 75.0 %NOMS HealthcarePlatelet mean volume (Bld) [Entitic vol]10.1 fL9.5 - 13.5 fLNODeaconess Incarnate Word Health SystemTB EO #0[facility] TBH MPB391VZFO [facility], BeachwoodTB RBC4.42NODeaconess Incarnate Word Health SystemTBH WBC8.9NODeaconess Incarnate Word Health System CLINISYNCDrug Screen, Urineon 35-38-8265Fdosnphrzdx/MethamphetamineNegative [facility] Hospitaledica Health SystemBarbituratesNegativeProMedica Health System BenzodiazepinesNegativeProMedica Health SystemCocaine MetaboliteNegative [facility] Hospitaledica Health SystemEcstasyNegativeMayo Memorial HospitalMedica Health SystemMethadoneNegative [facility]ed[facility] Health SystemOpiatesNegativeMayo Memorial HospitalMedica Health SystemOxycodoneNegative [facility]ed[facility] Health SystemPhencyclidineNegativeMayo Memorial HospitalMedica Health SystemThc Marijuana, UrineNegativeOur [facility] - Anderson SystemHBV surface Ag IA Qlon 10-06-2024 Hepatitis B Surface AntigenNegativeOur Lady of Mercy Hospital - Anderson SystemHIV 1+2 Ab+HIV1 p24 Ag IA Qlon 90-70-9633AFD 1&2 AB/AGNegativeMayo Memorial HospitalMedica [address] Anthony'S Hospital SystemHemoglobin A1con 29-34-2692XoC2q (Bld) [Mass fraction]5.9 %4.0 - 6.0 %[facility] HospitalNo Panel Informationon 13-00-5290XESM HealthcareTSHon 68-02-5345Boxqxzk Stimulating (3Rd Generation) Hormone/ Tsh1.131[facility] SystemType and screenon 79-10-9030Xrk/Rh(D)NegativeMercy Health – The Jewish HospitalHCG ( test) Ql (U)on 57-36-3926Zggwpjifohkoxt and review of laboratory resultsAbnormalSaint [facility]'s [facility] Preg Test, UrPositiveNegativeSt. [facility] HealthcareUrinalysis macro (dipstick) panel (U)on 08-62-9192Ywzuakjou, UANegativeNegative - 4(70) +++ mg/dL [facility]OMS HealthcareBlood, UANegativeNegative - 50 Max/mcLNOTN HealthcareClarity, UA ClearNOTN HealthcareColor, UAYellowNOMS HealthcareGlucose, UANegativeNegative - 1999(110) ++++ mg/dLNOMS HealthcareInterpretation and review of laboratory resultsNormalNOMS HealthcareKetones, UANegativeNegative - 160(16) ++++ mg/dLNOMS HealthcareLeukocytes, UANegativeNegative - 500+++ John/mcLNOMS HealthcareNitrite, UANegativeNegative - PositiveNOMS HealthcarepH, UA65 - 9NOMS HealthcareProtein, UANegativeNegative - 1999(20) ++++ mg/dLNOMS HealthcareSpec Grav, UA1.0251 - 1.03NOMS HealthcareUrobilinogen, UA0.20.2 - 12 mg/dLNOMS HealthcareNOMS HealthcareUS OB TRANSVAGINALon 15-10-5395[place], [place] [address] Ultrasound Report Signed Patient: SANNA RENDON MR#: [id number] : 1985 Acct:[id number] Age/Sex: 38 / F ADM Date: 09/11/24 Loc: US Attending Dr: Wilton Herrmann D.O. Ordering Physician: Wilton Herrmann D.O. Date of Service: 09/11/24 Procedure(s): US OB transvaginal Accession Number(s): [id number] cc: Wilton Herrmann D.O.; PENELOPE CASAS [place] [id number] Patient Name: SANNA RENDON [facility]:[id number] date: 1985 Sex: F Assigned Patient Location: US Current Patient Location: US Accession/Order Number: [id number] Exam Date: 09/11/2024 11:34 Report Date: 09/11/2024 [...] Montano M.D. 09/11/2024 11:36 AM Dictation Location: [place] [address] Electronically authenticated by: [id number] Y Date: 09/11/2024 11:36 Dictated By: Prudence Montano M.D. Signed By: 09/11/24 1138 DD/ 1136 TD/TT: Fine Arts Instructor:TBHRadiology, Radiologist, - 09/11/2024 [place] [address] Ultrasound Report Signed Patient: SANNA RENDON MR#: [id number] : 1985 Acct:[id number] Age/Sex: 38 / F ADM Date: 09/11/24 Loc: US Attending Dr: Wilton Herrmann D.O. Ordering Physician: Wilton Herrmann D.O. Date of Service: 09/11/24 Procedure(s): US OB transvaginal Accession Number(s): [id number] cc: Wilton Herrmann D.O.; PENELOPE CASAS [place] [id number] Patient Name: SANNA RENDON MRN: [facility]:[id number] date: 1985 Sex: F Assigned Patient Location: US Current Patient Location: US Accession/Order Number: [id number] Exam Date: 09/11/2024 11:34 Report Date: 09/11/2024 [...] Montano M.D. 09/11/2024 11:36 AM Dictation Location: [place] [address] Electronically authenticated by: [id number] Y Date: 09/11/2024 11:36 Dictated By: Prudence Montano M.D. Signed By: 09/11/24 1138 DD/ 1136 TD/TT: Fine Arts Instructor: SHILOH HealthcareRadiology Study observation (narrative)[facility] Medical CenterUS OB TRANSVAGINALOrdered By: Radiologist Radiology on 22-98-0864TE[facility] Work Phone: bhcg Quanton 66-51-8769QCI.beta subunit Cp82541 m[IU]/mLHigh1-3Fisher St. Agnes HospitalComment on above:Result Comment: 'F NON < 1 - 3' ' 0.2 - 1 WEEK = 5 TO 50' ' 1 - 2 WEEKS = 50 - 500' ' 2 - 3 WEEKS = 100 - 5000' ' 3 - 4 WEEKS = 500 - 56782' ' 4 - 5 WEEKS = 1000 - 44618' ' 5 - 6 WEEKS = 88205 - 154852' ' 6 - 8 WEEKS = 84391 - 466465' ' 8 - 12 WEEKS = 21041 - 280118'Performed By: #### [id number] #### [facility] [address] [place] [address]Fjnfgxnbuq Visit Summaryon 96-70-0389Vwfkqhttaw Visit Summary Ambulatory Visit Summary SANNA RENDON [...] (Vitamin D) fluticasone nasal (Flonase 0.05 mg/inh [place]) levothyroxine (levothyroxine 25 mcg (0.025 mg) Tab) [...] EDT With: Penelope CASAS DO, FAAFP Where: [facility] [address] [place] [address], [address] [place] [address]- Medications What How Much When Instructions Unchanged enoxaparin (Lovenox 40 mg/ 0.4 mL Injection) 40 Milligram Subcutaneous Every 24 hours Contact prescribing physician if questions or concerns Unchanged ergocalciferol (Vitamin D) 2,000 International unit By Mouth Every week Contact prescribing physician if questions or concerns Unchanged fluticasone nasal (Flonase 0.05 mg/ inh [place]) 2 Sprays Nasal Inhalation Every day each [...] you for choosing us for your care. [facility] Medicine Office/Clinic Noteon 04-44-7190Howpue Medicine Office/Clinic NoteFajewish healthcare center Medicine Office/Clinic Note Chief Complaint cough, sinus [...] created with voice recognition software. Occasional wrong-word or???zliyx-q-lzol??? substitutions may have occurred due to the [...] days ago on Sunday. Has been using yert-svg-mongzyh cough drops and Flonase for her allergies. [...] duration. Discussed antibiotics un (more content not included)...[facility] - AkronComment on above:Result Comment: Electronically Signed By: Aram QUINTEROS, Romulo Lynn\.br\Date and Time Signed: 09/07/2509:46 DAIANATCNPRosaura 70-04-8730JKSVGgkqumfac (HEMASA) SANNA RENDON ([id number]) 1985 F Date Time Provider Department 09/02/24 [...] Date Reviewed: 08/26/2024 Reviewed by: Katherine Negrete APRN.PEN RULER OPERATOR - Fully Assessed Reason for Visit: Patient [...] 05/28/2024 Encounter Status:Closed by RACHAEL JOHNSON on 09/03/24NoSt. Mary's [facility] Quanton 55-96-7272IYS.beta subunit Qn558 m[IU]/mLHigh1-3[facility] St. Agnes HospitalComment on above:Result Comment: 'F NON < 1 - 3' ' 0.2 - 1 WEEK = 5 TO 50' ' 1 - 2 WEEKS = 50 - 500' ' 2 - 3 WEEKS = 100 - 5000' ' 3 - 4 WEEKS = 500 - 10785' ' 4 - 5 WEEKS = 1000 - 26943' ' 5 - 6 WEEKS = 46692 - 285941' ' 6 - 8 WEEKS = 41274 - 104106' ' 8 - 12 WEEKS = 29541 - 597039'Performed By: #### [id number] #### [facility] [address] [place], [place] [address]sarah Agee [place], [place] [address]BvKD Quanton 83-70-8996ZFM.beta subunit Qn188 m[IU]/mLHigh1-3 [facility] HospitalComment on above:Result Comment: 'F NON < 1 - 3' ' 0.2 - 1 WEEK = 5 TO 50' ' 1 - 2 WEEKS = 50 - 500' ' 2 - 3 WEEKS = 100 - 5000' ' 3 - 4 WEEKS = 500 - 63190' ' 4 - 5 WEEKS = 1000 - 13428' ' 5 - 6 WEEKS = 69737 - 311291' ' 6 - 8 WEEKS = 10638 - 543686' ' 8 - 12 WEEKS = 13591 - 612926'Performed By: #### [id number] #### [facility] [address] [place], [place] [address]ERJEgz 38-92-1817ARKRXqwovtbhx (HEMASA) SANNA RENDON ([id number]) 1985 F Date Time Provider Department 08/26/24 [...] Date Reviewed: 08/26/2024 Reviewed by: Katherine Negrete APRN.PEN RULER OPERATOR - Fully Assessed Reason for Visit: Lab Orders [1688] Primary Visit Diagnosis:Antiphospholipid antibody positive [R76.0] Other Visit Diagnoses: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] Malaise and fatigue [R53.81, R53.83] Vitamin D deficiency [E55.9] Order(s):COMPLETE BLOOD COUNT AND DIFFERENTIAL [SQCBCDIF] Order #: [id number] FUTURE COMPREHENSIVE METABOLIC PANEL [SQCMP] Order #: [id number] FUTURE THYROID STIMULATING HORMONE [SQTSH] Order #: [id number] FUTURE IRON AND TIBC [SQIRON] Order #: [id number] FUTURE FERRITIN [SQFERR] Order #: [id number] FUTURE VITAMIN D 25 HYDROXY [SQVITD] Order #: [id number] FUTURE VITAMIN B12 [SQB12] Order #: [id number] FUTURE Prescriptions as of 08/26/2024 - enoxaparin [...] 05/28/2024 Encounter Status:Closed by KATHERINE NEGRETE on 08/26/24[facility] Quanton 26-65-8293DYF.beta subunit Qn83 m[IU]/mLHigh1-3FGood Samaritan HospitalComment on above:Result Comment: 'F NON < 1 - 3' ' 0.2 - 1 WEEK = 5 TO 50' ' 1 - 2 WEEKS = 50 - 500' ' 2 - 3 WEEKS = 100 - 5000' ' 3 - 4 WEEKS = 500 - 78011' ' 4 - 5 WEEKS = 1000 - 44597' ' 5 - 6 WEEKS = 29394 - 548781' ' 6 - 8 WEEKS = 73970 - 324034' ' 8 - 12 WEEKS = 71477 - 330591'Performed By: #### [id number] #### [facility] [address] [place], [place] [address]MvWZ Quanton 07-75-3633MVI.beta subunit Qn22 m[IU]/mLHigh1-3 [facility] HospitalComment on above:Result Comment: 'F NON < 1 - 3' ' 0.2 - 1 WEEK = 5 TO 50' ' 1 - 2 WEEKS = 50 - 500' ' 2 - 3 WEEKS = 100 - 5000' ' 3 - 4 WEEKS = 500 - 87445' ' 4 - 5 WEEKS = 1000 - 65753' ' 5 - 6 WEEKS = 76718 - 556563' ' 6 - 8 WEEKS = 13479 - 266045' ' 8 - 12 WEEKS = 97664 - 885924'Performed By: #### [id number] #### [facility] [address] [place], [place] [address]IRCWRKYELVktptme By: SYSTEM SYSTEM on 97-15-6850KBM.beta subunit Qn22 m[IU]/mLHigh1 - 3 mIU/mLRemisol ChemComment on above:Result Comment: 'F NON < 1 - 3' ' 0.2 - 1 WEEK = 5 TO 50' ' 1 - 2 WEEKS = 50 - 500' ' 2 - 3 WEEKS = 100 - 5000' ' 3 - 4 WEEKS = 500 - 03520' ' 4 - 5 WEEKS = 1000 - 00404' ' 5 - 6 WEEKS = 00952 - 005348' ' 6 - 8 WEEKS = 98379 - 173775' ' 8 - 12 WEEKS = 88035 - 488201'TSH Qn1.86 m[IU]/LNormal0.34 - 5.60 mcIU/mLRemisol ChemTSHon 24-15-5945WQJ Qn1.86 m[IU]/LNormal0.34-5.60Protestant HospitalComment on above:Performed By: #### [id number] #### [facility] [address] [place] [id number] ( test) Ql (U)on [id number] and review of laboratory resultsNoChan [facility] at WindberPre Test, UrNegativeNegative [facility].Interpretation:on [id number] Ab IA QlComment Invalid Interpretation [facility] CenterComment on above:Result Comment: Not infected with HCV unless early or acute infection is suspected (which may be delayed in an immunocompromised individual), or other evidence exists to indicate HCV infection. Performed at: [address] [id number] PhD Jd Garciaformed By: #### [id number] #### [facility] [address] [place], [place] [address]KJG Antibody RFX to Quant PCRon 85-48-1158HUG Ab IA Ql Non-ReactiveInvalid Interpretation CodeNon ReactiveProtestant Hospital Comment on above:Result Comment: Performed at: [address] [id number] PhD Jd Garciaformed By: #### [id number] #### [facility] [address] [place], [place] [address]IAX Screen 4th Generation wRfxon 99-94-5307PEH 1+2 Ab+HIV1 p24 Ag IA QlNon-ReactiveInvalid Interpretation CodeNon ReactiveProtestant HospitalComment on above:Result Comment: HIV-1/HIV-2 antibodies and HIV-1 p24 antigen were NOT detected. There is no laboratory evidence of HIV infection. HIV Negative Performed at: [address] [id number] PhD Jd Garciaformed By: #### [id number] #### [facility] [address] [place], [place] [address]Crr Be Agon 06-31-7238ZFU e Ag IA QlNegativeInvalid Interpretation CodeNegativeProtestant HospitalComment on above:Result Comment: Performed at: [address] [id number] PhD Jd Garciaformed By: #### [id number] #### [facility] [address] [place], [place] [address]Dve Bs Agon 96-36-5268IEG surface Ag IA QlNegativeInvalid Interpretation CodeNegativeProtestant HospitalComment on above:Result Comment: Performed at: [address] [id number] PhD Jd Garciaformed By: #### [id number] #### [facility] [address] [place], [place] [address]ARWLUHORFXbfzpfz By: SYSTEM SYSTEM on 31-51-3095Sossldx [Mass/Vol]5.0 g/dLNormal3.3 - 5.0 gm/dLRemisol ChemAlbumin/Globulin [Mass ratio] 1.6 {ratio}Normal1.1 - 2.2Remisol ChemALP [Catalytic activity/Vol]49 [iU]/d Rkrdsl75 - 98 Int._Unit/LRemisol ChemALT No additional P-5'-P [Catalytic activity/Vol]18 [iU]/dNormal6 - 46 Int._Unit/LRemisol ChemAnion gap [Moles/Vol] 13 mmol/LNormal6 - 16 mEq/LRemisol ChemAST [Catalytic activity/Vol]15 [iU]/d Normal5 - 43 Int._Unit/LRemisol ChemBilirubin [Mass/Vol]0.4 mg/dLNormal0.0 - 1.1 mg/dLRemisol ChemCalcium [Mass/Vol]10.0 mg/dLNormal8.9 - 11.1 mg/dLRemisol Chem Chloride [Moles/Vol]100 mmol/AZxb228 - 111 mmol/LRemisol ChemCO2 [Moles/Vol]25 mmol/GThxcbn03 - 31 mmol/LRemisol ChemCreatinine [Mass/Vol]0.7 mg/dLNormal0.5 - 1.3 mg/dLRemisol SrbxrECG667 mL/min/1.73 v5Kizddn>=59mL/min/1.73 s5Isulidg Chem Globulin (S) [Mass/Vol]3.1 g/dLNormal1.4 - 4.0 gm/dLRemisol ChemGlucose [Mass/Vol]82 mg/uRHnuxug01 - 199 mg/dLRemisol ChemPotassium [Moles/Vol]3.8 mmol/LNormal3.5 - 5.3 mmol/LRemisol ChemProtein [Mass/Vol]8.1 g/dLHigh6.0 - 7.8 gm/dLRemisol ChemSodium [Moles/Vol]134 mmol/JMmd707 - 145 mmol/LRemisol ChemUrea nitrogen [Mass/Vol]7 mg/dLNormal5 - 21 mg/dLRemisol ChemUrea nitrogen/Creatinine [Mass ratio]10 mg/dlGvjdzi48 - 20Remisol ChemCMPon 40-13-6402Sisaplm [Mass/Vol]5.0 g/dLNormal3.3-5.0[facility] Comment on above:Performed By: #### [id number] #### [facility] [address] [place] [address]Bbqztim/Globulin (S) [Mass conc ratio]1.8Jfxbfm2.1-2.2[facility] HospitalComment on above:Performed By: #### [id number] #### [facility] [address] [place], [place] [address]VGU [Catalytic activity/Vol]49 Int._Unit/ADkeiru21-11PmehliProtestant HospitalComment on above:Performed By: #### [id number] #### [facility] [address] [place], [place] [address]SYI No additional P-5'-P [Catalytic activity/Vol]18 Int._Unit/L Normal6-46Protestant HospitalComment on above:Performed By: #### [id number] #### [facility] [address] [place], [place] [address]Ganji gap [Moles/Vol]13 mmol/LNormal6-16Protestant HospitalComment on above:Performed By: #### [id number] #### [facility] [address] [place], [place] [address]VRD [Catalytic activity/Vol]15 Int._Unit/LNormal5-43Protestant HospitalComment on above:Performed By: #### [id number] #### [facility] [address] [place], [place] [address]Xbpksbzlq [Mass/Vol]0.4 mg/dLNormal0.0-1.1FGood Samaritan HospitalComment on above:Performed By: #### [id number] #### [facility] [address] [place], [place] [address]Khiiiio [Mass/Vol]10.0 mg/dLNormal8.9-11.1FGood Samaritan HospitalComment on above:Performed By: #### [id number] #### [facility] [address] [place], [place] [address]Cmgawsqb [Moles/Vol]100 mmol/QTyh377-009GblbsyProtestant HospitalComment on above:Performed By: #### [id number] #### [facility] [address] [place], [place] [address]YJ1 [Moles/Vol]25 mmol/MDyejhy18-77YmxfqfProtestant Hospital Comment on above:Performed By: #### [id number] #### [facility] [address] [place], [place] [address]Xoegdygjgf [Mass/Vol]0.7 mg/dLNormal0.5-1.3FGood Samaritan HospitalComment on above:Performed By: #### [id number] #### [facility] [address] [place], [place] [address]Vqmmgntd (S) [Mass/Vol]3.1 g/dLNormal1.4-4.0Protestant HospitalComment on above:Performed By: #### [id number] #### [facility] [address] [place], [place] [address]Sstktuw [Mass/Vol]82 mg/sVGwhntk18-730RyknjaProtestant HospitalComment on above:Performed By: #### [id number] #### [facility] [address] [place], [place] [address]Jcbttyeme [Moles/Vol]3.8 mmol/LNormal3.5-5.3FGood Samaritan HospitalComment on above:Performed By: #### [id number] #### [facility] [address] [place], [place] [address]Ywughxo [Mass/Vol]8.1 g/dLHigh6.0-7.8Pro[facility]ant HospitalComment on above:Performed By: #### [id number] #### [facility] [address] [place], [place] [address]Irkkat [Moles/Vol]134 mmol/ZCfx640-090TcmrttProtestant HospitalComment on above:Performed By: #### [id number] #### [facility] [address] [place], [place] [address]Mqcj nitrogen [Mass/Vol]7 mg/dLNormal5-21Protestant HospitalComment on above:Performed By: #### [id number] #### [facility] [address] [place], [place] [address]Eylr nitrogen/Creatinine [Mass ratio]10 No CjcheCrbvji43-38 Protestant HospitalComment on above:Performed By: #### [id number] #### [facility] [address] [place], [place] [address]tORYpd 51-07-7813qSKA693 mL/min/1.[address]kyjxl>=[address] Agnes HospitalComment on above:Performed By: #### [id number] #### [facility] [address] [place], [place] [address]Dnjeti Medicine Office/Clinic Noteon 56-66-7573Kzmiwq Medicine Office/Clinic NoteFajewish healthcare center Medicine Office/Clinic Note HPI Staff complaints of [...] RESENDEZ FAAFP, Penelope Tony, CHRIS, PED [address] [place] [address]- Additional Instructions: Patient Education Bradycardia, Adult Problem [...] exam Historical Abdominal pain (more content not included)...[facility] Comment on above:Result Comment: Electronically Signed By: Inez Banegas\.br\Date and Time Signed: 07/08/24 08:54 EDTAmbulatory Visit Summaryon 72-28-9258Kfeclzbnto Visit SummaryAmbulatory Visit Summary SANNA RENDON :1985 [...] mg Tab) fluticasone nasal (Flonase 0.05 mg/inh [place]) levothyroxine (levothyroxine 25 mcg (0.025 mg) Tab) [...] Follow-Up Appointments Sunday 8:20 AM EDT With: Penelope CASAS DO, FAAFP Where: [facility] [address] [place] [address]- You Need to Schedule the Following Appointments Follow Up with Penelope CASAS DO, FAAFP, FAM, PED When: Where: [address], [facility] [place] [address]- Medications What How Much When [...] Unchanged fluticasone nasal (Flonase 0.05 mg/ inh [place]) 2 Sprays Nasal Inhalation Every day each [...] you for choosing us for your care. [facility]ronBhG Quanton 59-72-9202FCV.beta subunit Qn1 m[IU]/mLNormal1-3[facility] HospitalComment on above:Result Comment: 'F NON < 1 - 3' ' 0.2 - 1 WEEK = 5 TO 50' ' 1 - 2 WEEKS = 50 - 500' ' 2 - 3 WEEKS = 100 - 5000' ' 3 - 4 WEEKS = 500 - 38512' ' 4 - 5 WEEKS = 1000 - 65929' ' 5 - 6 WEEKS = 11478 - 032875' ' 6 - 8 WEEKS = 65743 - 124214' ' 8 - 12 WEEKS = 32303 - 630468'Performed By: #### [id number] #### [facility] [address] [place], [place] [address]DRBMW 2 Mutationson 91-09-9596RFGJR InterpretationSee Note [facility] HospitalComment on above:Result Comment: Indication for testing: Determine genetic contribution to hyperhomocysteinemia. 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 The [place] [employer] Practice Guidelines indicate [...] a contributing factor to hyperhomocysteinemia. Variants Tested: c.665C>T(p.Fmb098Pan) and c.1286A>C(p.Uvn640Caw). (legacy names C677T and P4150V, respectively). Clinical Sensitivity: Undefined; hyperhomocysteinemia is caused [...] developed and its performance characteristics determined by [facility]. It has not been cleared or approved by the US Food and Drug Administration. This test was performed in a CLIA certified laboratory and is intended for clinical purposes. Counseling and informed consent are recommended for genetic testing. Consent forms are available online. Performed By: [facility] [address] [place] [address] Dental Appliance Mechanic: Yayo Moncada MD, PhD CLIA Number: [id number] Mutation: [id number]ma District HospitalMTHFR Mutation: N056JJhdklnqbYunnjrIabgcYuma District Hospital MTHFR PCR SpecimenWhole BloodYuma District HospitalAnti-nuclear Ab (NASEEM) Reflexon 73-96-5862Phgy-Nuclear Ab (NASEEM), IgG by ELISANot detectedNormal None DetRio Grande HospitalComment on above:Result Comment: If suspicion of connective tissue disease is strong and NASEEM EIA is negative, consider testing for NASEEM by IFA ([id number]). No antibodies to Anti-Nuclear Antibodies (NASEEM) detected. The Extractable Nuclear Antigen Antibodies (FIRST OFFICER AND FLIGHT INSTRUCTOR, Christianson, SSA 52, SSA 60, Scleroderma, Brianna-1 [...] dsDNA, histones, SS-A (Ro), SS-B (La), Christianson, Christianson/FIRST OFFICER AND FLIGHT INSTRUCTOR, Scl-70, Brianna-1, centromeric proteins, other antigens extracted from the HEp-2 cell nucleus. NASEEM ALEX assays have been reported to have lower sensitivities than NASEEM IFA for systemic autoimmune rheumatic diseases (SARD). Negative results do not necessarily rule out SARD. Performed By: [facility] [address] [place] [address] Dental Appliance Mechanic: Yayo Moncada MD, PhD CLIA Number: [id number] (Histidyl-tRNA Synthetase) Ab, IgGon 88-33-6068Ov-1 (Histidyl-tRNA Synthetase) Ab, IgG0 AU/mLNormal0-40[facility] Comment on above:Result Comment: INTERPRETIVE INFORMATION: Brianna-1 Antibody, IgG 29 AU/mL or less.........Negative 30-40 AU/mL..............Equivocal 41 AU/mL or greater......Positive Presence of Brianna-1 (antihistidyl transfer RNA [t-RNA] synthetase) antibody is associated with polymyositis and may also be seen in patients with dermatomyositis. Brianna-1 antibody is associated with pulmonary involvement (interstitial lung disease), Raynaud phenomenon, arthritis, and transformer mechanic's hands (implicated in antisynthetase syndrome). Performed By: [facility] [address] [place] [address] Dental Appliance Mechanic: Yayo Moncada MD, PhD CLIA Number: [id number] and SSB Abs, IgGon 27-85-7025CHT 52 (Ro) (KELLNE) Ab, IgG1 AU/mLNormal0-40[facility] CenterComment on above:Result Comment: INTERPRETIVE INFORMATION: SSA-52 (Ro52) [...] interstitial lung disease.SSB (La) (KELLEN) Ab, IgG0 AU/mLNormal0-40[facility] Comment on above:Result Comment: INTERPRETIVE INFORMATION: SSB [...] (PSS) also have this antibody. Performed By: [facility] [address] [place] [address] Dental Appliance Mechanic: Yayo Moncada MD, PhD CLIA Number: [id number] Antibodies, IgG/IgMon 22-78-1163Vusxuavmugf Ab IgG95 GPLCritically high<=14[facility] CenterComment on above: Result Comment: INTERPRETIVE INFORMATION: Anti-Cardiolipin [...] other criteria phospholipid antibody tests. Performed by [facility] [address] www.[email or web address], Zhang Bledsoe MD, Lab. Director [facility] Number: [id number] Ab IgM<10Normal<=12[facility] CenterComment on above:Result Comment: INTERPRETIVE INFORMATION: Anti- Cardiolipin [...] other criteria phospholipid antibody tests. Performed by [facility], [address] [place] [address] www.[email or web address], Zhang Bledsoe MD, Lab. Director CLIA Number: [id number] (Smooth Muscle) Antibody, IgAon 14-95-5665S-Actin Ab, IgA1.8 UnitsNormal0.0-24.9[facility] Medical CenterComment on above: Result Comment: INTERPRETIVE INFORMATION: F-Actin (Smooth Muscle)Antibody, IgA 20.0 Units or less.....Negative 20.1 - 24.9 Units......Equivocal 25.0 Units or greater..Positive The presence of IgA antibodies against F-Actin in patients having positive serologic markers for celiac disease, such as antiendomysial, anti-transglutaminase, and/or anti-gliadin peptide IgA, indicates the presence of intestinal villus atrophy. Positive results should be confirmed with biopsy. Performed By: [facility] [address] [place] [address] Dental Appliance Mechanic: Yayo Moncada MD, PhD CLIA Number: [id number] Ab, IgG by ELISAon 18-78-6006vpXCS Ab, IgG by ALEX 4 IUNormal0-24[facility] CenterComment on above:Result Comment: INTERPRETIVE INFORMATION: Double-Stranded DNA (dsDNA) Ab IgG ALEX 24 IU or less........Negative 25-30 IU.............Borderline Positive 30-60 IU.............Low Positive 60-200 IU............Positive 201 IU or greater....Strong Positive Positivity for anti-double stranded DNA (anti-dsDNA) IgG antibody is a diagnostic criterion of systemic lupus erythematosus (SLE). Specimens are initially screened by enzyme-linked immunosorbent assay (ALEX). If ordered as reflex ([id number]), positive ALEX results (>24 IU) will be [...] recommendations for testing may be found at [email or web address]. Performed by [facility], [address], [facility] [place] [address] www.[email or web address], Zhang Bledsoe MD, Lab. Director [place] Number: [id number] Proteinon 54-01-7673JIB [Mass/Vol]mg/LNormal 0.0-5.0[facility] CenterComment on above:Performed By: #### CRP #### [facility] [address] [place] [address] Sjmpylguxgbgi Rateon 67-80-5210Aahvwohqasush Rate18 mmNormal0-20 [facility] CenterComment on above:Result Comment: ESR Units mm/Hr Performed By: #### ESR #### [facility] [address] [place] [address] Qhubkn Medicine Office/Clinic Noteon 67-97-9211Zemofn Medicine Office/Clinic NoteFajewish healthcare center Medicine Office/Clinic Note Chief Complaint C/O: Rt [...] bedtime), # 90 tab(s), Refills(s) 4, Pharmacy: [facility], 168, cm, 06/30/24 8:36:00 EST, Height/Length Dosing, 97.2, kg, 06/30/24 8:36:00 EST, Weight Dosing Total time spent preparing the chart, conducting of the encounter with the patient and family and time spent documenting, reviewing, and ordering tests was 25 minutes. Follow-up With When Contact Information PRAVEEN RESENDEZ FAAFP, Penelope Tony, CHRIS, PED In 2 months [address], [place] [address]- ([phone] (more content not included)...[facility] Comment on above:Result Comment: Electronically Signed By: Penelope CASAS DO, FAAFP\.cedrick\Date and Time Signed: 06/30/24 09:24 ESTRECURRENT VAGINITIS (HTRX)on 99-01-1762ANKHEYNVJ TQLYJOR3FEVA HealthcareATOPOBIUM VAGINAENot detectedNOMS HealthcareBVAB 2,3 (BACTERIAL VAGINOSIS ASSOCIATED BACTERIA 2, 3); MOBILUNCUS [id number] HealthcareBVAB 2,3 (BACTERIAL VAGINOSIS ASSOCIATED BACTERIA 2, 3); MOBILUNCUS SPPNot detectedNOMS HealthcareCANDIDA ALBICANS, PARAPSILOSIS, TANMEGZNCB9FBVM HealthcareCANDIDA ALBICANS, PARAPSILOSIS, TROPICALISNot detected NOMS HealthcareCANDIDA DCISHNNM7BPWG HealthcareCANDIDA GLABRATANot detectedNOMS HealthcareCANDIDA RMOLFB3JIJP HealthcareCANDIDA KRUSEINot detectedNOMS HealthcareCHLAMYDIA TAUQGHUYPVJ1PETP HealthcareCHLAMYDIA TRACHOMATISNot detected NOMS HealthcareGARDNERELLA QONSRHSMW5YDBN HealthcareGARDNERELLA VAGINALISNot detectedNOMS HealthcareMEGASPHAERA (TYPES 1, 2)0NOMS HealthcareMEGASPHAERA (TYPES 1, 2)Not detectedNOMS HealthcareMYCOPLASMA MOKOQWIBQH7QFEJ Healthcare MYCOPLASMA GENITALIUMNot detectedNOMS HealthcareNEISSERIA YKHWXLYDUNF5ZSQO HealthcareNEISSERIA GONORRHOEAENot detectedNOMS HealthcareTRICHOMONAS VAGINALIS0 NOMS HealthcareTRICHOMONAS VAGINALISNot detectedNOMS HealthcareNOMS Healthcare Urinalysis macro (dipstick) panel (U)on 90-47-5896Rprtfzvzo, UANegativeNegative - 4(70) +++ mg/dLNOMS HealthcareBlood, UANegativeNegative - 50 Max/mcLNOMS HealthcareClarity, UAClearNOMS HealthcareColor, UAYellowNOMS HealthcareGlucose, UANegativeNegative - 2000(110) ++++ mg/dLNOMS HealthcareInterpretation and review of laboratory resultsNormalNOMS HealthcareKetones, UANegativeNegative - 160(16) ++++ mg/dLNOMS HealthcareLeukocytes, UANegativeNegative - 500+++ John/mcL NOMS HealthcareNitrite, UANegativeNegative - PositiveNOMS HealthcarepH, UA75 - 9 NOMS HealthcareProtein, UANegativeNegative - 1999(20) ++++ mg/dLNOMS Healthcare Spec Grav, UA1.011 - 1.03NOMS HealthcareUrobilinogen, UA0.20.2 - 12 mg/dLNOMS HealthcareNOMS HealthcareAmbulatory Visit Summaryon 71-92-9610Kijqoszjpo Visit SummaryAmbulatory Visit Summary SANNA RENDON :1985 [...] (Vitamin D) fluticasone nasal (Flonase 0.05 mg/inh [place]) levothyroxine (levothyroxine 25 mcg (0.025 mg) Tab) [...] EDT With: Penelope CASAS DO, FAAFP Where: [facility] [address] [place] [address], [place] [address]- Medications What How Much When Why Instructions New azithromycin (Zithromax 250 mg Tab) 1 Packets By Mouth As Directed Sinusitis Duration: 5 Days Refills: 1 as directed on package labeling Pickup [facility] New fluconazole (Diflucan 150 mg Tab) 1 Tablets By Mouth Every 7 days Yeast infection Refills: 1 Pickup at [facility] 1985 Unchanged enoxaparin (Lovenox 40 mg/ 0.4 mL Injection) 40 Milligram Subcutaneous Every 24 hours Contact prescribing physician if questions or concerns Unchanged ergocalciferol (Vitamin D) 2,000 International unit By Mouth Every week Contact prescribing physician if questions or concerns Unchanged fluticasone nasal (Flonase 0.05 mg/ inh [place]) 2 Sprays Nasal Inhalation Every day each [...] physician if questions or concerns Pharmacy Information [facility] 1985: [address] [facility] [place], [place] [id number] [phone] Allergies Milk Products (Illness) ciprofloxacin (Numbness and [...] you for choosing us for your care. [facility] Medicine Office/Clinic Noteon 74-57-4180Ztkdzz Medicine Office/Clinic NoteHouse Of The Good [facility] Medicine Office/Clinic Note Chief Complaint Sinus pressure [...] day(s), # 6 tab(s), Refills(s) 1, Pharmacy: [facility] 1986, 168, cm, 06/09/24 14:03:00 EST, Height/Length Dosing, 98.4, kg, 06/19/24 16:19:00 EST, Weight Dosing Yeast infection (B37.9: Candidiasis, unspecified) Ordered: fluconazole, 150 mg = 1 tab(s), Oral, q7day, # 4 tab(s), Refills(s) 1, Pharmacy: [facility] 1986, 168, cm, 06/09/24 14:03:00 [...] Oral, q7day, 1 refills Flonase 0.05 mg/inh [place], 2 spray(s), Nasal, Daily, 11 refills levothyroxine [...] Given Patient Refuses influe (more content not included)...NormalProtestant HospitalComment on above:Result Comment: Electronically Signed By: MANDI BRYANT\.br\Date and Time Signed: 06/19/24 16:37 ESTCBC w/ Auto Diffon 06-12-2024 Basophils/100 WBC (Bld)0.3 %Normal0.0-2.0Protestant HospitalComment on above:Performed By: #### [id number] #### [facility] [address] [place], [place] [address]Igeijmcxz/Leukocytes Auto (Bld) [Pure # fraction]0.0 E9/LNormal 0.0-0.2[facility] HospitalComment on above:Performed By: #### [id number] #### [facility] [address] [place], [place] [address]Gywdjkdbuzl (Bld) [#/Vol]0.0 E9/LNormal0.0-0.5[facility] HospitalComment on above:Performed By: #### [id number] #### [facility] [address] [place], [place] [address]Yvwcgbpnpdj/100 WBC (Bld)0.3 %Normal0.0-8.0Protestant HospitalComment on above:Performed By: #### [id number] #### [facility] [address] [place] [address]Fkavqqrjigd distribution width (RBC) [Ratio]14.0 %Normal 10.9-14.2FGood Samaritan HospitalComment on above:Performed By: #### [id number] #### [facility] [address] [place] [address]Ncgiztmwhv (Bld) [Volume fraction]40.9 %Qybsuo48.0-46.0Protestant HospitalComment on above:Performed By: #### [id number] #### [facility] [address] [place] [address]Jdfujervjb (Bld) [Mass/Vol]13.9 g/fQQdaqkn30.0-16.0Protestant HospitalComment on above:Performed By: #### [id number] #### [facility] [address] [place] [address]Ivxlxcovnvp (Bld) [#/Vol]2.8 E9/LNormal1.0-4.0Protestant HospitalComment on above:Performed By: #### [id number] #### [facility] [address] [place] [address]Seznfzzmwgw/100 WBC (Bld)24.6 %Cphuem05.0-50.0Protestant HospitalComment on above:Performed By: #### [id number] #### [facility] [address] [place] [address]XXH (RBC) [Entitic mass]30.7 rwAydpdm88.0-34.0Protestant HospitalComment on above:Performed By: #### [id number] #### [facility] [address] [place] [address]JYBM (RBC) [Mass/Vol]33.9 g/sCFdczql42.4-36.0[facility] Medical CenterComment on above:Performed By: #### [id number] #### [facility] [address] [place], [place] [address]NHH (RBC) [Entitic vol]90.6 hREapqmg19.0-100.0Protestant HospitalComment on above:Performed By: #### [id number] #### [facility] [address] [place] [address]Qypnqkusg (Bld) [#/Vol]0.6 E9/LNormal0.2-1.0Protestant HospitalComment on above:Performed By: #### [id number] #### [facility] [address] [place] [address]Nxfsqbpfrzz (Bld) [#/Vol]8.0 E9/LHigh2.0-7.5FGood Samaritan HospitalComment on above:Performed By: #### [id number] #### [facility] [address] [place] [address]45[address]Xjkgjvfohgq/100 WBC (Bld)69.6 %Nxfebu68.0-75.0Protestant HospitalComment on above:Performed By: #### [id number] #### [facility] [address] [place] [address]Nrhnxtlu405.0 E9/MQzrual768.0-500.0[facility] Comment on above:Performed By: #### [id number] #### [facility] [address] [place], [place] [address]Yyszwjye mean volume (Bld) [Entitic vol]8.2 fLNormal6.4-10.8 Protestant HospitalComment on above:Performed By: #### [id number] #### [facility] [address] [place] [address]HKT (Bld) [#/Vol]4.5 E12/LNormal4.3-5.9Protestant HospitalComment on above:Performed By: #### [id number] #### [facility] [address] [place] [address]XRS corrected for nucl RBC Auto (Bld) [#/Vol]11.5 E9/LHigh 4.0-11.0[facility] Hospitaler [facility] Agnes HospitalComment on above:Performed By: #### [id number] #### [facility] [address] [place], [place] [address]WJPSXXHOGEHtpbtxa By: SYSTEM SYSTEM on 60-02-0862Gtswpcvhu/100 WBC (Bld)0.3 %Normal0.0 - 2.0 %Remisol HemeBasophils/Leukocytes Auto (Bld) [Pure # fraction]0.0 E9/LNormal0.0 - 0.2 E9/LRemisol HemeEosinophils (Bld) [#/Vol]0.0 E9/LNormal0.0 - 0.5 E9/LRemisol HemeEosinophils/100 WBC (Bld)0.3 %Normal0.0 - 8.0 %Remisol HemeErythrocyte distribution width (RBC) [Ratio]14.0 %Dhxwyh27.9 - 14.2 %Remisol HemeHematocrit (Bld) [Volume fraction]40.9 %Ipfzcv01.0 - 46.0 % Remisol HemeHemoglobin (Bld) [Mass/Vol]13.9 g/fJKvlqds52.0 - 16.0 gm/dLRemisol HemeLymphocytes (Bld) [#/Vol]2.8 E9/LNormal1.0 - 4.0 E9/LRemisol Heme Lymphocytes/100 WBC (Bld)24.6 %Dupdgp31.0 - 50.0 %Remisol HemeMCH (RBC) [Entitic mass]30.7 ddFnxmdh31.0 - 34.0 pgRemisol HemeMCHC (RBC) [Mass/Vol]33.9 g/dL Fthioe64.4 - 36.0 gm/dLRemisol HemeMCV (RBC) [Entitic vol]90.6 hHHicqix55.0 - 100.0 fLRemisol HemeMonocytes (Bld) [#/Vol]0.6 E9/LNormal0.2 - 1.0 E9/LRemisol HemeMonocytes/100 WBC (Bld)5.2 %Normal4.0 - 14.0 %Remisol HemeNeutrophils (Bld) [#/Vol]8.0 E9/LHigh2.0 - 7.5 E9/LRemisol HemeNeutrophils/100 WBC (Bld)69.6 % Tjdvpv97.0 - 75.0 %Remisol PjqcUklacssf324.0 E9/IIeosgs941.0 - 500.0 E9/LRemisol HemePlatelet mean volume (Bld) [Entitic vol]8.2 fLNormal6.4 - 10.8 fLRemisol HemeRBC (Bld) [#/Vol]4.5 E12/LNormal4.3 - 5.9 E12/LRemisol HemeWBC corrected for nucl RBC Auto (Bld) [#/Vol]11.5 E9/LHigh4.0 - 11.0 E9/LRemisol HemeAmbulatory Visit Summaryon 37-93-0505Qyoasbjegb Visit SummaryAmbulatory Visit Summary JUSTICESANNA ROOT :1985 Visit Date:06/09/2024 Ambulatory Visit Instructions Your Diagnosis Antiphospholipid antibody with hypercoagulable state H/O: CVA Gestational diabetes BMI 35.0-35.9,adult Morbid obesity Your Care Team Attending Physician - Penelope CASAS DO, FAAFP Primary Care Physician - Penelope CASAS DO, FAAFP This Is Your Medications List fluticasone nasal (Flonase 0.05 mg/inh [place]) Contact prescribing physician if questions or concerns [...] EDT With: Penelope CASAS DO, FAAFP Where: [facility] [address], [place] [address]- Medications What How Much When Instructions New fluticasone nasal (Flonase 0.05 mg/ inh [place]) 2 Sprays Nasal Inhalation Every day Refills: 11 each nostril Pickup at [facility]/pharmacy #[id number] Unchanged enoxaparin (Lovenox 40 mg/ 0.4 [...] physician if questions or concerns Pharmacy Information [facility]/pharmacy #[id number]: [address] [place], [place] [id number] [phone] Allergies Milk Products (Illness) ciprofloxacin (Numbness and [...] for choosing us for your care. NormalFisher St. Agnes HospitalBhCG Quanton 21-87-5020ARL.beta subunit Qn2 m[IU]/mLNormal1-3Fisher St. Agnes HospitalComment on above:Result Comment: 'F NON < 1 - 3' ' 0.2 - 1 WEEK = 5 TO 50' ' 1 - 2 WEEKS = 50 - 500' ' 2 - 3 WEEKS = 100 - 5000' ' 3 - 4 WEEKS = 500 - 90220' ' 4 - 5 WEEKS = 1000 - 30355' ' 5 - 6 WEEKS = 67414 - 441964' ' 6 - 8 WEEKS = 48145 - 997907' ' 8 - 12 WEEKS = 86592 - 686571'Performed By: #### [id number] #### [facility] [address] [place], [place] [address]WRBBRAXVBIwiyuos By: SYSTEM SYSTEM on 12-83-6315XUT Qn1.97 m[IU]/LNormal0.34 - 5.60 mcIU/mLRemisol ChemFamily Medicine Office/Clinic Noteon 35-05-3530Ntuseh Medicine Office/Clinic NoteFamily Medicine Office/Clinic Note Chief Complaint Concerns: Jaw [...] from inside ear, not outside Moved from [place] Review of Systems PHQ Score Initial Depression [...] hypercoagulable state (D68.61: Antiphospholipid syndrome) [facility] Department of hematology/oncology following and treating with Lovenox, please see their consultation 05/28/2024. Treats with Lovenox 40 mg subcu every 24 hours 2. H/O: CVA (Z86.79: Personal history of other diseases of the circulatory system) Please see #1. 3. Gestational diabetes (O24.419: Gestational diabetes mellitus in , unspecified control) RESIDENT PROGRAM SPECIALIST, [facility] following. Metformin XR 500 mg tabs [...] Daily, 16 gram, Refill(s) 11, each nostril, [facility]/pharmacy #[id number], 168, cm, 06/09/24 14:03:00 EST, Height/Length [...] Contact Information PRAVEEN RESENDEZ FAAFP, Penelope Tony, FAM, PED In 6 months [address] [place] [address]- [phone] (more content not included)...[facility] - AkronComment on above:Result Comment: Electronically Signed By: Penelope CASAS DO, FAAFP\.br\Date and Time Signed: 06/09/24 14:24 ESTTSHon 22-31-9143UVJ Qn1.97 m[IU]/LNormal0.34-5.60Protestant HospitalComment on above:Performed By: #### [id number] #### [facility] [address] [place], [place] [address]LdFS Quanton 56-83-7080OVP.beta subunit Qn6 m[IU]/mLHigh1-3 Protestant HospitalComment on above:Result Comment: 'F NON < 1 - 3' ' 0.2 - 1 WEEK = 5 TO 50' ' 1 - 2 WEEKS = 50 - 500' ' 2 - 3 WEEKS = 100 - 5000' ' 3 - 4 WEEKS = 500 - 33537' ' 4 - 5 WEEKS = 1000 - 67201' ' 5 - 6 WEEKS = 11151 - 408858' ' 6 - 8 WEEKS = 91110 - 868062' ' 8 - 12 WEEKS = 89151 - 362797'Performed By: #### [id number] #### [facility] [address] [place], [place] [address]([place])D3 [facility] 669929-dfrsearooczpdl D3 [Mass/Vol] 27.8 ng/mLLow31.0-80.0Gre[facility] Memorial HospitalComment on above:Order Comment: Specimen Type: BLOOD SPECIMENOrdering Facility: [facility] Address:[address], [place] [address]Bvhdkv Comment: Classification of 25 [place] Vitamin D status: Deficiency/Insufficiency: < or = 30 ng/ml. Sufficiency/Optimal Levels: 31-80 ng/mL Toxicity: > 100 ng/mL. Test performed by chemiluminescent immunoassay.Performed By: #### 1989-3 ####[facility] LABCLIA [id number] [facility]K [id number] Auto Differential panel (Bld)on 20-54-3269Rtgiltqpt (Bld) [#/Vol]0.03 10*3/uLNormal<0.11COhioHealth Nelsonville Health CenterComment on above:Order Comment: Specimen Type: BLOOD SPECIMENOrdering Facility: [facility] Address:[address] [place], [place] [address]Performed By: #### 15821-4 ####[facility] LABCLIA [id number] [place], [place] [address]Dsqvqujmk/100 WBC (Bld)0.4 % NormalOur Lady of Mercy Hospital on above:Order Comment: Specimen Type: BLOOD SPECIMENOrdering Facility: [facility] Address:[address] [place], [place] [address]Performed By: #### 15050-9 ####[facility] LABCLIA [id number] [place] [address] Differential cell count method Nom (Bld)AutoNormalCOhioHealth Nelsonville Health Center Comment on above:Order Comment: Specimen Type: BLOOD SPECIMENOrdering Facility: [facility] Address:[address] [place] [address] Performed By: #### 95637-6 ####[facility] LABCLIA [id number] [place], [place] [address]Wzhsuflvpzr (Bld) [#/Vol]0.08 10*3/uLNormal<0.46[facility] on above:Order Comment: Specimen Type: BLOOD SPECIMENOrdering Facility: [facility] Address:[address] [place], [place] [address]Performed By: #### 47448-2 ####[facility] LABCLIA [id number] [place], [place] [address]Fsowexwgbog/100 WBC (Bld)0.9 %NormalOur Lady of Mercy Hospital on above:Order Comment: Specimen Type: BLOOD SPECIMENOrdering Facility: [facility] Address:[address] [place], [place] [address]Performed By: #### 64082-5 ####[facility] LABCLIA [id number] [place], [place] [address]Vzuaewhyybz distribution width (RBC) [Ratio]13.8 %Vzczua45.5-15.0[facility] on above: Order Comment: Specimen Type: BLOOD SPECIMENOrdering Facility: [facility] Address:[address] [place], [place] [address]Performed By: #### 91378- 8 ####[facility] LABCLIA [id number] [place], [place] [address]Myigkvjzed (Bld) [Volume fraction]34.0 %Low36.0-46.0 [facility] on above:Order Comment: Specimen Type: BLOOD SPECIMENOrdering Facility: [facility] Address:[address] [place], [place] [address]Performed By: #### 16754-5 ####[facility] LABIA [id number] [place], [place] [address]Ywwvgmywts (Bld) [Mass/Vol]11.5 g/eWGpalqw26.5-15.5CAultman Hospital on above: Order Comment: Specimen Type: BLOOD SPECIMENOrdering Facility: [facility] Address:[address] [place], [place] [address]Performed By: #### 86476- 8 ####[facility] LABIA [id number] [place], [place] [address]Qunrrmhb granulocytes (Bld) [#/Vol]0.03 10*3/uLNormal <0.10[facility] on above:Order Comment: Specimen Type: BLOOD SPECIMENOrdering Facility: [facility] Address:[address] [place], [place] [address]Performed By: #### 68007-6 ####[facility] LABCLIA [id number] [place], [place] [address]Dwzcgnyx granulocytes/100 WBC (Bld)0.4 %NormalOur Lady of Mercy Hospital on above: Order Comment: Specimen Type: BLOOD SPECIMENOrdering Facility: [facility] Address:[address] [place], [place] [address]Performed By: #### 70478- 8 ####[facility] LABCLIA [id number] [place], [place] [address]Kbjidfsyamw (Bld) [#/Vol]2.86 10*3/uLNormal1.00-4.00 [facility] on above:Order Comment: Specimen Type: BLOOD SPECIMENOrdering Facility: [facility] Address:[address] [place], [place] [address]Performed By: #### 96052-8 ####[facility] LABIA [id number] [place], [place] [address]Kjphqgsqfup/100 WBC (Bld)33.4 %NormalOur Lady of Mercy Hospital on above:Order Comment: Specimen Type: BLOOD SPECIMENOrdering Facility: [facility] Address:[address] [place], [place] [address]Performed By: #### 41741-5 ####[facility] LABIA [id number] [place], [place] [address]OTK (RBC) [Entitic mass]30.8 wbSjdbyq94.0-34.0[facility] on above:Order Comment: Specimen Type: BLOOD SPECIMENOrdering Facility: [facility] Address:[address] [place], [place] [address]Performed By: #### 14390-8 ####[facility] LABIA [id number] [place], [place] [address]JUPE (RBC) [Mass/Vol]33.8 g/wRJxxlpe19.5-36.0[facility] on above: Order Comment: Specimen Type: BLOOD SPECIMENOrdering Facility: [facility] Address:[address] [place], [place] [address]Performed By: #### 86090- 8 ####[facility] LABCLIA [id number] [place], [place] [address]RYO (RBC) [Entitic vol]91.2 xANqugsi18.0-100.0[facility] on above:Order Comment: Specimen Type: BLOOD SPECIMENOrdering Facility: [facility] Address:[address] [place], [place] [address]Performed By: #### 92820-2 ####[facility] LABCLIA [id number] [place], [place] [address]Wkjnwzqgc (Bld) [#/Vol]0.66 10*3/uLNormal<0.87[facility] on above:Order Comment: Specimen Type: BLOOD SPECIMENOrdering Facility: [facility] Address:[address] [place], [place] [address]Performed By: #### 92494- 8 ####[facility] LABCLIA [id number] [place], [place] [address]Yhurhwffn/100 WBC (Bld)7.7 %NormalOur Lady of Mercy Hospital on above:Order Comment: Specimen Type: BLOOD SPECIMENOrdering Facility: [facility] Address:[address] [place], [place] [address]Performed By: #### 60961-4 ####[facility] LABCLIA [id number] [place], [place] [address]Ofubzybxhgv (Bld) [#/Vol]4.90 10*3/uLNormal1.45-7.50[facility] on above:Order Comment: Specimen Type: BLOOD SPECIMENOrdering Facility: [facility] Address:[address] [place], [place] [address]Performed By: #### 30886-0 ####[facility] LABCLIA [id number] [place], [place] [address]Lsywgltqxlm/100 WBC (Bld)57.2 %NormalOur Lady of Mercy Hospital on above:Order Comment: Specimen Type: BLOOD SPECIMENOrdering Facility: [facility] Address:[address] [place], [place] [address]Performed By: #### 61763-2 ####[facility] LABCLIA [id number] [place], [place] [address]Nxxtkekqa RBC (Bld) [#/Vol] 10*3/uLNormal<0.01[facility] on above:Order Comment: Specimen Type: BLOOD SPECIMENOrdering Facility: [facility] Address:[address] [place], [place] [address]Performed By: #### 41373-9 ####[facility] LABIA [id number] [place], [place] [address]Kyoaaunzo RBC/100 WBC (Bld) [Ratio]0.0 /100 WBCNormal [facility] on above:Order Comment: Specimen Type: BLOOD SPECIMENOrdering Facility: [facility] Address:[address] [place], [place] [address]Performed By: #### 84603-2 ####[facility] LABIA [id number] [place], [place] [address]Klnmsocz mean volume (Bld) [Entitic vol]9.6 fLNormal9.0-12.7CAultman Hospital on above:Order Comment: Specimen Type: BLOOD SPECIMENOrdering Facility: [facility] Address:[address] [place] [address] Performed By: #### 33636-9 ####[facility] LABIA [id number] [place], [place] [address]Glgvwgwnx (Bld) [#/Vol]345 10*3/sSUdaheb270-085DkywnxhugOur Lady of Mercy Hospital on above:Order Comment: Specimen Type: BLOOD SPECIMENOrdering Facility: [facility] Address:[address] [place], [place] [address]Performed By: #### 37290-2 ####[facility] LABCLIA [id number] [place], [place] [address]ZUG (Bld) [#/Vol]3.73 10*6/uLLow3.90-5.20[facility] on above:Order Comment: Specimen Type: BLOOD SPECIMENOrdering Facility: [facility] Address:[address] [place], [place] [address]Performed By: #### 89692-5 ####[facility] LABCLIA [id number] [place], [place] [address]PRD (Bld) [#/Vol]8.56 10*3/uL Normal3.70-11.00[facility] on above:Order Comment: Specimen Type: BLOOD SPECIMENOrdering Facility: [facility] Address:[address] [place], [place] [address]Performed By: #### 21767-5 ####[facility] LABCLIA [id number] [place], [place] [address]AQLITByl 88-89-9657XRZVRYXugjk (SP) Office (HEMASA) SANNA RENDON ([id number]) 1985 F Date Time Provider Department 05/28/24 1:00 PM KRISTOFRE CALIX During your visit today, we recorded the following information about you: Temperature Pulse Respiration Blood pressure 97.6 degrees 72/minute 16/minute 123/83 Weight Height 98.5 kg 1.677 m Kristofer Calix MD 05/29/2024 9:13 AM Signed NAME: Sanna Rendon CLINIC NO.: [id number] DATE OF SERVICE: May 28, 2024 (Levon) [...] later in 2018. These were found in [place], [place]. I don't have access to these [...] rash shortly before presenting to [facility] in 2015 with headaches and was diagnosed [...] soon. When she had a stroke in [place], she had symptoms up to a month [...] having trouble losing weight. (more content not included)...NormalGreene Memorial HospitalCNPNon 05-28-2024 CNPNTelephone (NCCAP) SANNA RENDON ([id number]) 1985 F Date Time Provider Department 05/28/24 KRISTOFER CALIX NCCVAIBHAV During your visit today, we [...] 05/28/2024 Encounter Status:Closed by TAYLOR ESCUDERO on 05/28/24NormalClevelAngel Medical CenterComprehensive metabolic 2000 panelon 97-97-4315Xnxvvhr [Mass/Vol]4.4 g/dLNormal3.9-4.9COhioHealth Nelsonville Health CenterComment on above:Order Comment: Specimen Type: BLOOD SPECIMENOrdering Facility: [facility] Address:[address] [place], [place] [address]Performed By: #### 61890-0 ####[facility] LABCLIA [id number] [place] [address]UEP [Catalytic activity/Vol]59 U/AVqozbx89-571QuybqoyfxOur Lady of Mercy Hospital on above:Order Comment: Specimen Type: BLOOD SPECIMENOrdering Facility: [facility] Address:[address] [place], [place] [address]Performed By: #### 08935-2 ####[facility] LABCLIA [id number] [place] [address]XCB [Catalytic activity/Vol]12 U/LNormal7-38[facility] on above:Order Comment: Specimen Type: BLOOD SPECIMENOrdering Facility: [facility] Address:[address] [place], [place] [address]Performed By: #### 90818- 8 ####[facility] LABCLIA [id number] [place] [address]Lbjsv gap [Moles/Vol]10 mmol/LNormal8-15[facility] on above:Order Comment: Specimen Type: BLOOD SPECIMENOrdering Facility: [facility] Address:[address] [place], [place] [address]Performed By: #### 45712-2 ####[facility] LABCLIA [id number] [place] [address]ZAE [Catalytic activity/Vol]11 U/QRob95-32ZiikgfvevOur Lady of Mercy Hospital on above:Order Comment: Specimen Type: BLOOD SPECIMENOrdering Facility: [facility] Address:[address] [place], [place] [address]Performed By: #### 01594-4 ####[facility] LABCLIA [id number] [place] [address] Bilirubin [Mass/Vol]0.2 mg/dLNormal0.2-1.3CAultman Hospital on above:Order Comment: Specimen Type: BLOOD SPECIMENOrdering Facility: [facility] Address:[address] [place], [place] [address]Performed By: #### 72626-4 ####[facility] LABCLIA [id number] [place] CHERRYMOUNT [facility] [place] [address]Xbgljnu [Mass/Vol]9.7 mg/dLNormal8.5-10.2CAultman Hospital on above:Order Comment: Specimen Type: BLOOD SPECIMENOrdering Facility: [facility] Address:[address] [place], [place] [address]Performed By: #### 82082-2 ####[facility] LABCLIA [id number] [place] CHERRYMOUNT [facility] [place] [address]Oiazmihf [Moles/Vol]99 mmol/ZXnscge85-733KusdspdfzOur Lady of Mercy Hospital on above:Order Comment: Specimen Type: BLOOD SPECIMENOrdering Facility: [facility] Address:[address] [place], [place] [address]Performed By: #### 03219- 8 ####[facility] LABCLIA [id number] FABI DUMONTMOUNT GRAHAM REG[facility] MEDICAL CENTERTEETEEBELINGTON, [place] [address]BF4 [Moles/Vol]25 mmol/OTwpvxn59-33WgwoclkijOur Lady of Mercy Hospital on above:Order Comment: Specimen Type: BLOOD SPECIMENOrdering Facility: [facility] Address:[address] [place], [place] [address]Performed By: #### 97847-4 ####[facility] LABCLIA [id number] FABI GREENSEMOUNT GRA[facility] REG[facility] MEDICAL CENTERV[place], [place] [address]Yahhauzuls [Mass/Vol]0.71 mg/dL Normal0.58-0.96[facility] on above:Order Comment: Specimen Type: BLOOD SPECIMENOrdering Facility: [facility] Address:[address] [place], [place] [address]Performed By: #### 39033-0 ####[facility] LABCLIA [id number] BHARAT PETER DUMONTMOUNT GRAHAM REGIONAL MEDICAL CENTERVANESSA[place]ERV[place], [place] [address]Ojpkubslri and Glomerular filtration rate.predicted panel (S/P/Bld)112 mL/min/1.73m???Normal>=60[facility] ClevelandComment on above:Order Comment: Specimen Type: BLOOD SPECIMENOrdering Facility: [facility] Address:[address] [place], [place] [address]Uswdig Comment: Estimated Glomerular Filtration Rate (eGFR) is [...] not accurately reflect actual GFR.Performed By: #### 60868-2 ####[facility] LABCLIA [id number] [place], [place] [address]Zfzgppu [Mass/Vol]79 mg/bKNwdzoz21-22NcixpeqddOur Lady of Mercy Hospital on above:Order Comment: Specimen Type: BLOOD SPECIMENOrdering Facility: [facility] Address:[address] [place], [place] [address]Result Comment: The [place] Diabetes Association (ADA) provides guidance for cutoff [...] Standards of Medical Care in Diabetes 2016, [place] [employer] Association. Diabetes Care. 2016.39(Suppl 1).Performed By: #### 17978-2 ####[facility] LABCLIA [id number] [place], [place] [address]Rvejbctwx [Moles/Vol]4.0 mmol/LNormal3.7-5.1CAultman Hospital on above:Order Comment: Specimen Type: BLOOD SPECIMENOrdering Facility: [facility] Address:[address] [place], [place] [address]Performed By: #### 51601-2 ####[facility] LABCLIA [id number] [place], [place] [address]Lunzfpe [Mass/Vol]7.1 g/dLNormal6.3-8.0[facility] on above:Order Comment: Specimen Type: BLOOD SPECIMENOrdering Facility: [facility] Address:[address] [place], [place] [address]Performed By: #### 09679- 8 ####[facility] LABCLIA [id number] [place], [place] [address]Dfdadp [Moles/Vol]134 mmol/EXfg672-390UdnsyuucnOur Lady of Mercy Hospital on above:Order Comment: Specimen Type: BLOOD SPECIMENOrdering Facility: [facility] Address:[address] [place], [place] [address]Performed By: #### 93067-6 ####[facility] LABCLIA [id number] [place], [place] [address]Jwjy nitrogen [Mass/Vol]8 mg/dL Normal7-21[facility] on above:Order Comment: Specimen Type: BLOOD SPECIMENOrdering Facility: [facility] Address:[address] [place], [place] [address]Performed By: #### 57197-1 ####[facility] LABCLIA [id number] [place] [address] Ferritin SerPl-mCncon 05-20-9567Niyzcvor [Mass/Vol]73.8 ng/pULbdxoh57.7-205.1 [facility] on above:Order Comment: Specimen Type: BLOOD SPECIMENOrdering Facility: [facility] Address:[address] [place], [place] [address]Performed By: #### 74199-0, 2276-4, 3016-3 ####[facility] LABCLIA [id number] [place] [id number] STATES OF AMERICAFolate SerPl-mCncon 51-82-4495Emqzxr [Mass/Vol] ng/mLNormal>4.7CAultman Hospital on above:Order Comment: Specimen Type: BLOOD SPECIMENOrdering Facility: [facility] Address:[address] [place], [place] [address]Result Comment: A result of > 20 ng/mL is not necessarily indicative of a pathologic or treatable condition: it reflects a limitation of the test methodology. Assay reference range: 4.8 to 24.2 ng/mL. Suitable for detection of folate deficiency. Reference: Folate III (Folate III) [package insert V 1.0 Bangladeshi]. [facility], [place], [place]: February 2015.Performed By: #### 2132-9, 2284-8 ####[facility] LABIA [id number] [place] [address] [place] OF AMERICAIron and Iron binding capacity panelon 05-28-2024 Iron [Mass/Vol]68 ug/fKIggqdz08-954BatllkgkeOur Lady of Mercy Hospital on above: Order Comment: Specimen Type: BLOOD SPECIMENOrdering Facility: [facility] Address:[address] [place], [place] [address]Performed By: #### 02354- 8, 2276-4, 3016-3 ####[facility] [id number] [place] [address] [place] AMER[place]AIron binding capacity [Mass/Vol]367 ug/[id number] Lady of Mercy Hospital on above: Order Comment: Specimen Type: BLOOD SPECIMENOrdering Facility: [facility] Address:[address] [place], [place] [address]Performed By: #### 66710- 8, 2276-4, 3016-3 ####[facility] LABIA [id number] [place] [address] [place] AMERICAIron/TIBC [Molar ratio]18.5 %Utalqu58.0-57.0[facility] on above:Order Comment: Specimen Type: BLOOD SPECIMENOrdering Facility: [facility] Address:[address] [place] [id number] By: #### 98266- 8, 6-4, 3016-3 ####[facility] LABCLIA [id number] [address] STATES [facility] SerPl-aCncon [id number] Qn2.940 m[IU]/LNormal0.270-4.200[facility] on above:Order Comment: Specimen Type: BLOOD SPECIMENOrdering Facility: [facility] Address:[address] [place], [place] [address]Result Comment: If the patient is , TSH reference range varies by gestational period: First Trimester (weeks 9-12): 0.180-2.990 mIU/L Second Trimester: 0.110-3.980 mIU/L Third Trimester: 0.480-4.710 mIU/L Danny Varela et al. A Practical Approach for the Verifications and Determination of Site- and Trimester-Specific Reference Intervals for Thyroid Function tests in . Thyroid, 2019:29:3:412-420.Saeed E, et al. 2017 Guidelines of the [place] Thyroid Association for the Diagnosis and Management of Thyroid Disease during and the . Thyroid, 2017:27:3:315-389. Performed By: #### 39082-8, 6-4, 3016-3 ####[facility] LABIA [id number] [place] [id number] [place] [facility]CTORS HOSPITALVit B12 SerPl-mCncon 03-97-7102Iphuuppjd (Vitamin B12) [Mass/Vol]487 pg/vFRlbxvp144-4689VgatbskgsAultman Hospital on above:Order Comment: Specimen Type: BLOOD SPECIMENOrdering Facility: [facility] Address:[address] [place], [place] [address]Performed By: #### 2132-9, 2284-8 ####[facility] LABCLIA [id number] [place] [id number] [place] [facility] HospitalG Quanton 11-93-3952NRJ.beta subunit Qn101 m[IU]/mLHigh1-3FGood Samaritan HospitalComment on above:Result Comment: 'F NON < 1 - 3' ' 0.2 - 1 WEEK = 5 TO 50' ' 1 - 2 WEEKS = 50 - 500' ' 2 - 3 WEEKS = 100 - 5000' ' 3 - 4 WEEKS = 500 - 61472' ' 4 - 5 WEEKS = 1000 - 25152' ' 5 - 6 WEEKS = 90620 - 401281' ' 6 - 8 WEEKS = 60734 - 583459' ' 8 - 12 WEEKS = 75879 - 036602'Performed By: #### [id number] #### [facility] [address] [place], [place] [address]PRWJLR V LEIDEN MUTATIONon 17-13-0216EBC FACTOR V LEIDEN MUTATIONComment.[facility] Medical CenterComment on above:Result: c.1601G>A (p.Khx064Cgr) - Not Detected This result is not associated with an increased risk for venous thromboembolism. See Additional Clinical Information and Comments. Additional Clinical Information: Venous thromboembolism is a multifactorial disease influenced by genetic, environmental, and circumstantial risk factors. The c.1601G>A (p. Fgo884Kgt) variant in the F5 gene, commonly referred [...] c.*97G>A variant and Factor V Leiden (PMID: 98916745). Additional risk factors include but are not [...] health care providers to discuss results at [phone] (9957). Test Details: Variant Analyzed: c.1601G>A (p. Tiq363Icy), referred to as Factor V Leiden Methods/Limitations: [...] developed and its performance characteristics determined by [facility]. It has not been cleared or approved by the Food and Drug Administration. References: Jomar Guzman, Loren BLANDON, Thiago R, Solo WW, Jose JH; ACMG Professional Practice and Guidelines Committee. Addendum: [place] [employer] consensus statement on factor V Leiden mutation testing. Nisha Med. 2020Jul 02. doi: 10.1038/j11500-749-35602-b. PMID: 34705160. Naina POWERS. Factor V Leiden Thrombophilia. 1998September 10 (Updated 2017May 03). In: Emeterio MP, Radha HH, Clayton RA, et al., editors. Cassie(R) (Internet). [place] ([place]): [facility]; 1158-2582. Available from: https://www.ncbi.nlm.nih.gov/books/SKH2228/ Hudson Guzman, Loren BALNDON, Trent X, Margarito B, Jo-Ann EB, Lena P, Rhiannon CS; ACMG Laboratory Pharmacy Affairs Assistant Committee. Venous thromboembolism laboratory testing (factor V Leiden and factor II c.*97G>A), 2018 update: a technical standard of the [place] [employer] and Genomics (ACMG). Nisha Med. 2017;20(12):6784-4478. doi: 10.1038/i96828-995-4180-k. Epub 2017Feb 01. PMID: 55513854. [facility] REVIEWED BYComment.NOMS HealthcareComment on above:Technical Component performed at [facility] Professional Component performed by: [employer]Track [facility]-PhiladelphiaPurePlay Rosa Isela eLe, Ph.D., [facility] Director, Molecular Genetics [address] [facility] Performed at: - [facility] [address] [facility], [facility], [place] [id number] Java Security Engineer: Kolton Storm [facility], Phone: [phone] [facility] [id number] (HEMASA) SANNA RENDON ([id number]) 1985 F Date Time Provider Department 05/14/24 [...] for deficiency. She is aware if her differential tester or PCP request any additional testing, we [...] Date Reviewed: 04/28/2024 Reviewed by: Katherine Negrete APRN.PEN RULER OPERATOR - Fully Assessed Reason for Visit: Patient [...] 08/01/2022 Encounter Status:Closed by RACHAEL JOHNSON on 05/14/24[facility] MISCELLANEOUS TESTon 85-31-5194GTGZMKCCNLTQA TESTCOMMENT.NOMS HealthcareComment on above:Test Ordered: [id number] , ID Ab Cytomegalovirus (CMV) Ab, IgG [...] 0.9 - 1.1 Positive >1.1 Performed at: [address] [id number] Java Security Engineer: Dusty Miles PhD, Phone: [phone] Performed at: [address] [id number] Java Security Engineer: China Ching MD, Phone: [phone] , Infectious Disease Antibody Profile CLINISYNCNOTN HealthcareNo Panel Informationon 06-94-0819ZHLWIBQBKPMKJ HealthcarePROTEIN C-FUNCTIONALon 12-42-9497UHXVUCR C-VUHXJJCMKR598 %73 - 180 % NOMS HealthcareComment on above:Performed at: [address] [id number] Java Security Engineer: China Ching MD, Phone: [phone] PROTEIN S-ANTIGENon 73-91-9195WGZBMZU S, YEAB583 %61 - 136 %[facility] PROTEIN S, TOTAL96 %60 - 150 %NOMS HealthcareComment on above:This test was developed and its performance characteristics determined by [facility]. It has not been cleared or approved by the Food and Drug Administration. [facility] ANTITHROMBIN ACTIVITYon 74-65-1063Pjecinakrrnefs and review of laboratory resultsAbnormalCrossroads Regional Medical Center ANTITHROMBIN BTGXKFCB576 %Ozenigbe87 - 135 % NOMS HealthcareComment on above:An elevated antithrombin activity is of no known clinical significance. Direct Xa inhibitor anticoagulants such as rivaroxaban, apixaban and edoxaban will lead to spuriously elevated antithrombin activity levels possibly masking a deficiency. Performed at: [address] [id number] Java Security Engineer: China Ching MD, Phone: [phone] ALL IMMUNOGLOBULIN Koffi 07-00-5623CQC IMMUNOGLOBULIN G, QN913 mg/dL586 - 1602 mg/dLNOMS HealthcareComment on above:Performed at: [address] [id number] Java Security Engineer: Dusty Miles PhD, Phone: [phone] ALL IMMUNOGLOBULIN Mon 00-61-5629WNS IMMUNOGLOBULIN M, Q177 mg/dL26 - 217 mg/dL NOMS HealthcareComment on above:Performed at: [address] [id number] Java Security Engineer: Dusty Miles PhD, Phone: [phone] [facility] HOMOCYSTEINEon 43-23-9257ZFEVOFOQ(E)INE5.8 umol/L0.0 - 14.5 umol/LNOMS HealthcareNo Panel Informationon 04-78-7288XELNPNBQEKVUS HealthcareALL CBC WITH AUTO DIFFon 24-84-5956PQQONETAW ABSOLUTE TEGA8GETB HealthcareBasophils/100 WBC (Bld)0.2 %0.2 - 2.0 %NOMS HealthcareEosinophils/100 WBC (Bld)0.7 %Low0.9 - 7.0 % NOMS HealthcareErythrocyte distribution width (RBC) [Ratio]13 %11.0 - 15.0 %NOMS HealthcareHematocrit (Bld) [Volume fraction]35.6 %Low36.0 - 48.0 %NOMS HealthcareHemoglobin (Bld) [Mass/Vol]12.3 g/dL12.0 - 16.0 g/dLSaint John's Breech Regional Medical Center IMMATURE GRANULOCYTES ABS AUTO0.04HighNODeaconess Incarnate Word Health SystemImmature granulocytes/100 WBC (Bld)0.4 %0.0 - 0.5 %[facility] Medical CenterInterpretation and review of laboratory resultsAbnormalNODeaconess Incarnate Word Health SystemLYMPHOCYTES ABSOLUTE AUTO2.5NOMS [facility] Lymphocytes/100 WBC (Bld)26.1 %20.5 - 60.0 %[facility] SpringfieldH (RBC) [Entitic mass]31 pg26.7 - 34.0 pgNOSt. Louis Behavioral Medicine InstituteHC (RBC) [Mass/Vol]34.6 g/dL29.9 - 35.2 g/dLDoctors Hospital of SpringfieldV (RBC) [Entitic vol]89.7 fL81.0 - 99.0 fLSaint John's Breech Regional Medical Center MONOCYTES ABSOLUTE AUTO0.6NODeaconess Incarnate Word Health SystemMonocytes/100 WBC (Bld)6 %1.7 - 12.0 % [facility] Medical CenterNEUTROPHILS ABSOLUTE AUTO6.3NOMS [facility] BeachwoodNeutrophils/100 WBC (Bld)66.6 %43.0 - 75.0 %[facility] Medical CenterPlatelet mean volume (Bld) [Entitic vol] 9.9 fL9.5 - 13.5 fLNODeaconess Incarnate Word Health SystemTB EO #0.1NOMS [facility] BeachwoodTB [id number] [facility] BeachwoodTB RBC3.97LowNOMS [facility] WBC9.4NODeaconess Incarnate Word Health SystemCLINISYNCNKindred HospitalCC APTTon 60-52-8413mZVL Coag (Bld) [Time]28.5 [facility] KirkwoodLon 05-10-2024L Specimen: [id number] Received: 05/12/24-120 Status: BALDOMERO Andrade Num: [id number] Spec Type: Surgical Subm Dr: Wilton Herrmann Tissues: A Placenta - Other than 3rd Trimester (14 WK PLACENTA) Procedures: HE/3, Gross/Micro L4 Age/ Patient Sex Location Account Attending Physician Sanna Rendon 38/F LABELL [id number] Wilton Herrmann SPEC NUM: [id number] RECD: 05/12/24-1209 STATUS: BALDOMERO ANDRADE NUM: [id number] AMARILYS: 05/10/24- [facility] DR: Wilton Herrmann ENTERED: 05/12/24-12[address] [facility] [address]: Piyush,Lab SPEC TYPE: Surgical DEPT: [facility] ENTERED BY: [id number] RECV BY: [id number] ORDERED: HE/3, Gross/Micro L4 ORDERED: HE/3, Gross/Micro [...] BS25-17 Received: 05/12/24 Status: BALDOMERO Andrade Num: [id number] Spec Type: Surgical Subm Dr: Wilton Herrmann Tissues: A Placenta - Other than 3rd Trimester (14 WK PLACENTA) Procedures: DEION/Ramone, Gross/Micro L4 Patient: Sanna Rendon [id number] (Continued) Specimen: [id number] Received: 05/12/24 (Continued) Gross Description (Continued) Signed (signature on file) Vivi Hill MD 05/13/24 1605 Specimen: [id number] Received: 05/12/24 Status: BALDOMERO Noa Num: [id number] Spec Type: Surgical Subm Dr: Wilton Herrmann Tissues: A Placenta - Other than 3rd Trimester (14 WK PLACENTA) Procedures: HE/3, Gross/Micro L4 Patient: Sanna Rendon [id number] (Continued) Specimen: [id number] Received: 05/12/24 (Continued) Gross [...] and uniform. Cassettes: A1 Rolled membrane A2-A3 Manager [place] sections of placenta (3, ss, BS25-17 A) ABBY . CPT Codes 70460 Specimen: BS25-17 Received: 05/12/24 Status: BALDOMERO Andrade Num: [id number] Spec Type: Surgical Subm Dr: Wilton Herrmann Tissues: A Placenta - Other than 3rd Trimester (14 WK PLACENTA) Procedures: LETI, Gross/Micro L4 Patient: JusticeSanna [id number] (Continued) Signed (signature on file) Vivi Hill MD 05/13/[address] [place] [address] Physician GroupMHPT FIBRINOGENon 05-10-2024 JLQDLDLPGJ174 mg/dL200 - 400 mg/dLNODeaconess Incarnate Word Health SystemNo Panel Informationon 07-60-4761TPIXAJJUMMKXJ HealthcareSRMCOH PROTHROMBIN TIME INR W/O COUMon 41-32-4459RR Coag (PPP) [Time]10.3 sNKindred HospitalTB INR0.97NODeaconess Incarnate Word Health System Comment on above:DESIRED INR: 2.0-3.0 CONDITIONS NOT LISTED BELOW 2.5-3.5 FOR PROSTHETIC HEART VALVE REPLACEMENT 2.5-3.5 RECURRENT THROMBOSIS US PELVISon 94-50-1338Gkt[place], [place] [address] Ultrasound Report Signed Patient: SANNA RENDON MR#: [id number] : 1985 Acct:[id number] Age/Sex: 38 / F ADM Date: Loc: [facility] 258-[address]: Wilton Herrmann D.O. Ordering Physician: Wilton Herrmann D.O. Date of Service: 05/10/24 Procedure(s): US pelvis Accession Number(s): [id number] cc: Wilton Herrmann D.O.; PENELOPE CASAS [place] [id number] Patient Name: SANNA RENDON MRN: [id number] date: 1985 Sex: F Assigned Patient Location: [facility] Current Patient Location: [facility] Accession/Order Number: [id number] Exam Date: 05/10/2024 14:36 Report Date: 05/10/2024 16:02 At the request of: WILTON HERRMANN Procedure: US pelvis EXAMINATION: US pelvis HISTORY: post delivery for demise induction COMPARISON: No relevant comparison available. TECHNIQUE: Transabdominal and/or transvaginal sonographic examination was performed as indicated by examination type. FINDINGS: UTERUS: No retained products of conception. US/US pelvis IMPRESSION: 1. No retained products of conception. Electronically authenticated by: HUMERA KIM Date: 05/10/2024 16:02 Dictated By: Humera Kim M.D. Signed By: 05/10/241603 DD/ 01 TD/TT: Fine Arts Instructor:ELVERadiologPacheco morales, - 05/10/2024 [place] [address] Ultrasound Report Signed Patient: SANNA RENDON MR#: [id number] : 1985 Acct:[id number] Age/Sex: 38 / F ADM Date: Loc: [facility] [address]: Wilton Herrmann D.O. Ordering Physician: Wilton Herrmann D.O. Date of Service: 05/10/24 Procedure(s): US pelvis Accession Number(s): [id number] cc: Wilton Herrmann D.O.; PENELOPE CASAS [place] [address] Patient Name: SANNA RENDON MRN: [facility]:[id number] date: 1985 Sex: F Assigned Patient Location: [facility] Current Patient Location: [facility] Accession/Order Number: [id number] Exam Date: 05/10/2024 14:36 Report Date: 05/10/2024 16:02 At the request of: WILTON HERRMANN Procedure: US pelvis EXAMINATION: US pelvis HISTORY: post delivery for demise induction COMPARISON: No relevant comparison available. TECHNIQUE: Transabdominal and/or transvaginal sonographic examination was performed as indicated by examination type. FINDINGS: UTERUS: No retained products of conception. US/US pelvis IMPRESSION: 1. No retained products of conception. Electronically authenticated by: HUMERA KIM Date: 05/10/2024 16:02 Dictated By: Humera Kim M.D. Signed By: 05/10/241603 DD/ 01 TD/TT: Fine Arts Instructor: NOMS HealthcareRadiology Study observation (narrative)NOMS HealthcareUS PELVIS Ordered By: Radiologist Radiology on 44-59-3085OHBF Healthcare Work Phone: US for pregnancyon [phone] [address] Ultrasound Report Signed Patient: SANNA ERNDON MR#: [id number] : 1985 Acct:[id number] Age/Sex: 38 / F ADM Date: Loc: [facility] 258-[address]: Wilton Herrmann D.O. Ordering Physician: Wilton Herrmann D.O. Date of Service: 05/10/24 Procedure(s): US OB limited Accession Number(s): [id number] cc: Wilton Herrmann D.O.; PENELOPE CASAS [address] [address] Patient Name: SANNA RENDON MRN: [facility]:[id number] date: 1985 Sex: F Assigned Patient Location: [facility] Current Patient Location: [place] Accession/Order Number: [id number] Exam Date: 05/10/2024 08:30 Report Date: 05/10/2024 09:26 At the request of: WILTON HERRMANN Procedure: US OB limited EXAM: US [...] Findings compatible with demise. Electronically authenticated by: HUMERA KIM Date: 05/10/2024 09:26 Dictated By: Humera Kim M.D. Signed By: 05/10/24928 DD/ 5 TD/TT: Fine Arts Instructor:ELVERadiologcarmen, Radiologist, - 05/10/2024 [place] [address] Ultrasound Report Signed Patient: SANNA RENDON MR#: [id number] : 1985 Acct:[id number] Age/Sex: 38 / F ADM Date: Loc: [facility] 258-[address]: Wilton Herrmann D.O. Ordering Physician: Wilton Herrmann D.O. Date of Service: 05/10/24 Procedure(s): US OB limited Accession Number(s): [id number] cc: Wilton Herrmann D.O.; PENELOPE CASAS [place] [address] Patient Name: SANNA RENDON MRN: [id number] date: 1985 Sex: F Assigned Patient Location: [facility] Current Patient Location: US Accession/Order Number: [id number] Exam Date: 05/10/2024 08:30 Report Date: 05/10/2024 09:26 At the request of: WILTON HERRMANN Procedure: US OB limited EXAM: US [...] Findings compatible with demise. Electronically authenticated by: HUMERA KIM Date: 05/10/2024 09:26 Dictated By: Humera Kim M.D. Signed By: 05/10/24928 DD/ 5 TD/TT: Fine Arts Instructor: SHILOH HealthcareRadiology Study observation (narrative)SHILOH HealthcareUS for pregnancyOrdered By: Radiologist Radiology on 41-13-4559ABII Healthcare Work Phone: us OB TRANSVAGINALon 01-82-5846VP OB TRANSVAGINALTITLE OF EXAM: OB Ultrasound: REASON [...] period was 01/29/2024.Urinalysis macro (dipstick) panel (U)on 93-40-8401Grildlcov, UANegativeNegative - 4(70) +++ mg/dLNOMS Healthcare Blood, UANegativeNegative - 50 Max/mcLNOTN HealthcareClarity, UAClearNOMS HealthcareColor, UAYellowNOMS HealthcareGlucose, UANegativeNegative - 2000(110) ++++ mg/dLNOTN HealthcareInterpretation and review of laboratory resultsNormal NOMS HealthcareKetones, UANegativeNegative - 160(16) ++++ mg/dLNOMS Healthcare Leukocytes, UANegativeNegative - 500+++ John/mcLNOTN HealthcareNitrite, UA NegativeNegative - PositiveNOMS HealthcarepH, UA65 - 9NOMS HealthcareProtein, UA NegativeNegative - 2000(20) ++++ mg/dLNOMS HealthcareSpec Grav, UA1.011 - 1.03 NOMS HealthcareUrobilinogen, UA0.20.2 - 12 mg/dLNOTN HealthcareNOMS Healthcare BOX TESTon 16-25-5182UBB TEST SENT OUTYNOMS NktfuchbuhNIW2OIAVVZLGQ Healthcare ZJY41706/13/23NOMS HealthcareUNITY BOX CLINISYNCNOMS HealthcareTBH DRUG SCREEN RAPID (URINE)on 21-82-3834DGFUBFGHMYZ SCREEN URINENegativeNEGATIVENOMS HealthcareBARBITURATES SCREEN URINENegative NEGATIVENOMS HealthcareBENZODIAZEPINES [...] SCREEN URINENegativeNEGATIVENOMS Healthcare TRICYCLIC ANTIDEPRESSANT URINENegativeNEGATIVENOMS HealthcareCLINISYNCNOMS HealthcareUS OB TRANSVAGINALon 31-29-5525Mnc[place] [address] Ultrasound Report Signed Patient: Sanna Rendon MR#: [id number] : 1985 Acct:[id number] Age/Sex: 38 / F ADM Date: 04/04/24 Loc: [facility] Attending Dr: Wilton Herrmann D.O. Ordering Physician: Wilton Herrmann D.O. Date of Service: 04/04/24 Procedure(s): US OB transvaginal Accession Number(s): [id number] cc: Wilton Herrmann D.O.; PENELOPE CASAS [place] [address] Patient Name: SANNA RENDON MRN: [id number] date: 1985 Sex: F Assigned Patient Location: [facility] Current Patient Location: Accession/Order Number: [id number] Exam Date: 04/04/2024 09:43 Report Date: 04/05/2024 04:39 At the request of: WILTON HERRMANN Procedure: US OB transvaginal EXAMINATION: US [...] . Electronically authenticated by: HUMERA KIM Date: 04/05/2024 04:39 Dictated By: Humera Kim M.D. Signed By: 04/05/24441 DD/ TD/TT: Fine Arts Instructor:ELVERadiology, Radiologist, MD - 04/05/2024 [place] [address] Ultrasound Report Signed Patient: Sanna Rendon MR#: [id number] : 1985 Acct:[id number] Age/Sex: 38 / F ADM Date: 04/04/24 Loc: [facility] Attending Dr: Wilton Herrmann D.O. Ordering Physician: Wilton Herrmann D.O. Date of Service: 04/04/24 Procedure(s): US OB transvaginal Accession Number(s): [id number] cc: Wilton Herrmann D.O.; PENELOPE CSAAS [place] [address] Patient Name: SANNA RENDON MRN: [id number] date: 1985 Sex: F Assigned Patient Location: [facility] Current Patient Location: Accession/Order Number: [id number] Exam Date: 04/04/2024 09:43 Report Date: 04/05/2024 04:39 At the request of: WILTON HERRMANN Procedure: US OB transvaginal EXAMINATION: US [...] . Electronically authenticated by: HUMERA KIM Date: 04/05/2024 04:39 Dictated By: Humera Kim M.D. Signed By: 04/05/24441 DD/ 8 TD/TT: Fine Arts Instructor: THE DIMOCK CENTERJaylan HealthcareRadiology Study observation (narrative)[facility] OB TRANSVAGINALOrdered By: Radiologist Radiology on 35-79-1756IDKFSaint John's Breech [facility] Center Work Phone: HCG ( test) Ql (U)on 04-91-3870Wqylrxxyqtatkq and review of laboratory resultsAbnormalNOMS HealthcarePreg Test, UrPositive NegativeNODeaconess Incarnate Word Health SystemNOTN HealthcareUrinalysis macro (dipstick) panel (U)on 56-47-4260Nmeakguhi, UANegativeNegative - 4(70) +++ mg/dLNOMS HealthcareBlood, UANegativeNegative - 50 Max/mcLNOMS HealthcareClarity, UAClearNOMS Healthcare Color, UAYellowNOTN HealthcareGlucose, UANegativeNegative - 2000(110) ++++ mg/dL NOMS HealthcareInterpretation and review of laboratory resultsNormalNOTN HealthcareKetones, UANegativeNegative - 160(16) ++++ mg/dLNOTN Healthcare Leukocytes, UANegativeNegative - 500+++ John/mcLNOTN HealthcareNitrite, UA NegativeNegative - PositiveNOMS HealthcarepH, UA5.55 - 9NOMS HealthcareProtein, UANegativeNegative - 2000(20) ++++ mg/dLNOTN HealthcareSpec Grav, UA1.021 - 1.03 NOMS HealthcareUrobilinogen, UA1.00.2 - 12 mg/dLNOTN HealthcareNOTN HealthcareC Urineon 44-48-6435Yclrbrhz identified Cx Nom (U)Microbiology PROCEDURE: Urine Culture [R1] SOURCE: U CleanCatch BODY SITE: COLLECTED DATE/TIME: 03/01/2024 10:30 EDT RECEIVED DATE/TIME: 03/01/2024 13:48 EDT START DATE/TIME: 03/01/2024 13:48 EDT FREE TEXT SOURCE: Wilton HERRMANN DO, DO, Corey R FINAL REPORTS Final Report [] Verified Date/Time: 03/03/2024 08:52 EST 2,000 cfu/ml Mixed skin contaminants Performing Locations R1: This test was performed at: [facility], [address] [place] [address], [address] , , TocacpOntfqtSelect Medical Specialty Hospital - AkronComment on above:Performed By: #### [id number] #### [facility] [address] [place] [address]GiJF Quanton 75-19-0952GII.beta subunit Qn747 m[IU]/mLHigh1-3 Protestant HospitalComment on above:Result Comment: 'F NON < 1 - 3' ' 0.2 - 1 WEEK = 5 TO 50' ' 1 - 2 WEEKS = 50 - 500' ' 2 - 3 WEEKS = 100 - 5000' ' 3 - 4 WEEKS = 500 - 86311' ' 4 - 5 WEEKS = 1000 - 24315' ' 5 - 6 WEEKS = 53956 - 680734' ' 6 - 8 WEEKS = 38220 - 426046' ' 8 - 12 WEEKS = 08591 - 754380'Performed By: #### [id number] #### [facility] [address] [place], [place] [address]WUQRHNVGYYwnqnmi By: SYSTEM SYSTEM on 36-72-5883RWP.beta subunit Qn747 m[IU]/mLHigh1 - 3 mIU/mLRemisol ChemComment on above:Result Comment: 'F NON < 1 - 3' ' 0.2 - 1 WEEK = 5 TO 50' ' 1 - 2 WEEKS = 50 - 500' ' 2 - 3 WEEKS = 100 - 5000' ' 3 - 4 WEEKS = 500 - 65896' ' 4 - 5 WEEKS = 1000 - 67501' ' 5 - 6 WEEKS = 76990 - 819955' ' 6 - 8 WEEKS = 35249 - 557938' ' 8 - 12 WEEKS = 92888 - 914085'[facility] Quanton 00-87-1533OYW.beta subunit Qn268 m[IU]/mLHigh1-3FGood Samaritan HospitalComment on above:Result Comment: 'F NON < 1 - 3' ' 0.2 - 1 WEEK = 5 TO 50' ' 1 - 2 WEEKS = 50 - 500' ' 2 - 3 WEEKS = 100 - 5000' ' 3 - 4 WEEKS = 500 - 57600' ' 4 - 5 WEEKS = 1000 - 43251' ' 5 - 6 WEEKS = 98159 - 386007' ' 6 - 8 WEEKS = 25218 - 139827' ' 8 - 12 WEEKS = 44367 - 622871'Performed By: #### [id number] #### [facility] [address] [place], [place] [address]KHAAer 85-57-0508RKZATnsldazqh (HEMASA) SANNA RENDON ([id number]) 1985 F Date Time Provider Department 02/27/24 [...] Fully Assessed Reason for Visit: Patient Question [1477] Prescriptions as of 02/28/2024 - enoxaparin (LOVENOX) [...] 08/01/2022 Encounter Status:Closed by RACHAEL JOHNSON on 02/28/24NoSt. Mary's [facility] Quanton 47-84-1885CZT.beta subunit Qn123 m[IU]/mLHigh1-3Fisher St. Agnes HospitalComment on above:Result Comment: 'F NON < 1 - 3' ' 0.2 - 1 WEEK = 5 TO 50' ' 1 - 2 WEEKS = 50 - 500' ' 2 - 3 WEEKS = 100 - 5000' ' 3 - 4 WEEKS = 500 - 39518' ' 4 - 5 WEEKS = 1000 - 03398' ' 5 - 6 WEEKS = 20844 - 314378' ' 6 - 8 WEEKS = 16669 - 891014' ' 8 - 12 WEEKS = 21935 - 140650'Performed By: #### [id number] #### [facility] [address] [place] [address] 03209BCDLTJGKFUtpxezf By: SYSTEM SYSTEM on 37-95-3941DFX.beta subunit Qn123 m[IU]/mLHigh1 - 3 mIU/mLRemisol ChemComment on above:Result Comment: 'F NON < 1 - 3' ' 0.2 - 1 WEEK = 5 TO 50' ' 1 - 2 WEEKS = 50 - 500' ' 2 - 3 WEEKS = 100 - 5000' ' 3 - 4 WEEKS = 500 - 44917' ' 4 - 5 WEEKS = 1000 - 27067' ' 5 - 6 WEEKS = 31663 - 118347' ' 6 - 8 WEEKS = 94438 - 225014' ' 8 - 12 WEEKS = 55127 - 252962'UfdV6fnf 70-93-0839KgI4a (Bld) [Mass fraction]6.0 %High<=5.9Protestant HospitalComment on above:Performed By: #### [id number] #### [facility] [address] [place], [place] [address]LNW Screen 4th Generation wRfxon 72-72-2907CAM 1+2 Ab+HIV1 p24 Ag IA QlNon-ReactiveInvalid Interpretation CodeNon ReactiveProtestant HospitalComment on above:Result Comment: HIV-1/HIV-2 antibodies and HIV-1 p24 antigen were NOT detected. There is no laboratory evidence of HIV infection. HIV Negative Performed at: [facility] [address] [id number] PhD Jd MontanoPerformed By: #### [id number] #### [facility] [address], [place] [address]RhPL Quanton 91-49-5092FHM.beta subunit Qn52 m[IU]/mLHigh1-3 Protestant HospitalComment on above:Result Comment: 'F NON < 1 - 3' ' 0.2 - 1 WEEK = 5 TO 50' ' 1 - 2 WEEKS = 50 - 500' ' 2 - 3 WEEKS = 100 - 5000' ' 3 - 4 WEEKS = 500 - 09610' ' 4 - 5 WEEKS = 1000 - 05803' ' 5 - 6 WEEKS = 13528 - 701333' ' 6 - 8 WEEKS = 59971 - 893386' ' 8 - 12 WEEKS = 21531 - 134183'Performed By: #### [id number] #### [facility] [address], [place] [address]XJLBBQVDJXrkxkxy By: SYSTEM SYSTEM on 60-54-0011Zllwtacuulq [Mass/Vol]225 mg/mZMtpy170 - 200 mg/dLRemisol ChemCholesterol in HDL [Mass/Vol] [...] 3 - 4 WEEKS = 500 - 06470' ' 4 - 5 WEEKS = 1000 - 11869' ' 5 - 6 WEEKS = 11513 - 614272' ' 6 - 8 WEEKS = 48505 - 814706' ' 8 - 12 WEEKS = 47091 - 540098'Triglyceride [Mass/Vol]212 mg/dLHigh <=149mg/dLRemisol ChemTSH Qn5.68 m[IU]/LHigh0.34 - 5.60 mcIU/mLRemisol Chem CHEMISTRYOrdered By: Chelsey Price on 59-21-6510BkL6t (Bld) [Mass fraction]5.9 %Normal<=5.9%[facility] [place] ZoshZinySSNruJ4qyx 37-24-6410LsN1e (Bld) [Mass fraction]5.9 % Normal<=5.9Protestant HospitalComment on above:Performed By: #### [id number] #### [facility] [address], [place] [address]Sykuw Panelon 85-34-6732Qipxfxqeimx [Mass/Vol]225 mg/dLHigh 120-200Protestant HospitalComment on above:Performed By: #### [id number] #### [facility] [address], [place] [address]Ygxknhylisq in HDL [Mass/Vol]40 mg/dLInvalid Interpretation CodeProtestant HospitalComment on above:Result Comment: '>= 60 LOW RISK' '<= 40 HIGH RISK'Performed By: #### [id number] #### [facility] [address], [place] [address]Tkxuteyrezx in LDL [Mass/Vol]171 mg/dLHigh<=129Protestant HospitalComment on above:Performed By: #### [id number] #### [facility] [address], [place] [address]Mscrrwldtxx in VLDL [Mass/Vol]42 mg/dLHigh7-40Protestant HospitalComment on above:Performed By: #### [id number] #### [facility] [address], [place] [address]Qbmkrqtoqswg [Mass/Vol]212 mg/dLHigh<=149Protestant HospitalComment on above:Performed By: #### [id number] #### [facility] [address], [place] [address]NGRkg 90-62-9528MHI Qn5.68 m[IU]/LHigh0.34-5.60Protestant HospitalComment on above:Performed By: #### [id number] #### [facility] [address], [place] [address]Hmwdxbsifn Visit Summaryon 74-10-6879Vncrfanfbi Visit Summary Ambulatory Visit Summary SANNA RENDON [...] EST With: Penelope CASAS DO, FAAFP Where: [facility] [address], [place] [address]- You Need to Schedule the Following Appointments Follow Up with Penelope CASAS DO, FAAFP, FAM, PED When: In 3 months Where: [address] [place] [address]- You Need to Complete the Following HgbA1c, [...] virus infection Vaginal marlee (more content not included)...[facility] Family Medicine Office/Clinic Noteon 62-09-1351Ongixq Medicine Office/Clinic NoteFajewish healthcare center Medicine Office/Clinic Note Chief Complaint Patient here [...] 40 mg subcu, continue to follow-up with rush seater 5. Gestational diabetes (O24.419: Gestational diabetes mellitus in , unspecified control) Metformin 500 mg daily XR tabs 2/day per RESIDENT PROGRAM SPECIALIST Ordered: HgbA1c HgbA1c HgbA1c HgbA1c 6. Well [...] Penelope CASAS DO, FAAFP, FAM, PED In 3 months [address], [place] [address]- Additional Instructions: Patient Education Acute Bronchitis, Adult Problem List/Past Medical History Ongoing Acute (more content not included)...[facility]ronComment on above:Result Comment: Electronically Signed By: Penelope [...] Community acquired pneumonia [facility]: [facility] New [facility] (azithromycin 250 mg Tab 5-day Dose Pack (Z-Jonny)) 1 Packets By Mouth As Directed Community acquired pneumonia Duration: 5 Days as directed on package labeling [facility] Unchanged enoxaparin (Lovenox 40 mg/ 0.4 [...] physician if questions or concerns Pharmacy Information [facility] 1986: [address] [place], [place] [id number] [phone] Allergies Milk Products (Illness) ciprofloxacin (Numbness and [...] you for choosing us for your care. [facility] Medicine Office/Clinic Noteon 12-09-4430Vfucmm Medicine Office/Clinic NoteFajewish healthcare center Medicine Office/Clinic Note Chief Complaint SOB and [...] a 38 Years White Female presenting to [facility] with body aches and productive cough [...] puff(s), Inhalation, q6hr, 1 EA, Refill(s) 5, [facility], 168, cm, 02/01/2414:43:00 EDT, Height/Length Dosing, 101.1, kg, 02/02/24 14:43:00 EDT, Weight Dosing azithromycin, = 1 packet(s), Oral, As Directed, as directed on package labeling, X 5 day(s), # 6 tab(s), Refills(s) 0, Pharmacy: [facility] 1985, 168, cm, 02/02/24 14:43:00 [...] Bernstein MD, FAM, MED Only if needed [address] [place] [phone] Additional Instructions: Problem List/Past Medical History Ongoing [...] Vitamin D, 2000 International_Unit (more content not included)...[facility] AkronComment on above:Result Comment: Electronically Signed By: Anni Bernstein MD\.br\Date and Time Signed: 02/01/2415:03 EDTMRI Brain w/o Contraston 75-04-5045EXV Brain w/o ContrastExam Date/Time: 12/06/2023 14:48 EDT [...] Pablo Barker MD Transcribed by: LINDY Technologist: DanayProtestant HospitalCortisolon 06-18-1934Rndmyrnj [Mass/Vol]12.5 microgram/dLInvalid Interpretation Code 6.2-19.4FGood Samaritan HospitalComment on above:Result Comment: Please Note: The reference interval and flagging for this test is for an AM collection. If this is a PM collection please use: Cortisol PM: 2.3-11.9 Performed at: [facility] [id number] PhD Jd Garciaformed By: #### [id number] #### [facility] [address] [place] [address] Freeon 32-41-1600Pfqo T3 [Mass/Vol]2.5 pg/mLInvalid Interpretation Code2.0-4.4FGood Samaritan HospitalComment on above:Result Comment: Performed at: [facility] [id number] PhD Jd Garciaformed By: #### [id number] #### [facility] [address] [place] [address]Bdqjqupkp 59-32-7502Zrgkeev [Catalytic activity/Vol]38 U/L Jpeyst76-734UogwyqProtestant HospitalComment on above:Performed By: #### [id number] #### [facility] [address], [place] [address]YLUHZDAJNKpxlgme By: SYSTEM SYSTEM on 51-32-1135Tkyidiu [Catalytic activity/Vol]38 U/GJgukjs29 - 157 unit/LRemisol ChemCobalamin (Vitamin B12) [Mass/Vol]328 pg/yWXpyetx28 - 1500 pg/mLRemisol ChemCRP [Mass/Vol] 0.2 mg/dLNormal<=1.9mg/dLRemisol ChemFree T4 [Mass/Vol]0.58 ng/dLNormal0.58 - 1.64 ng/dLRemisol ChemTSH Qn4.97 m[IU]/LNormal0.34 - 5.60 mcIU/mLRemisol ChemCRP on 84-39-0828YEI [Mass/Vol]0.2 mg/dLNormal<=1.9[facility] Comment on above:Performed By: #### [id number] #### [facility] [address], [place] [address]Jkjp T4on 84-69-2733Jkdn T4 [Mass/Vol]0.58 ng/dLNormal0.58-1.64 Protestant HospitalComment on above:Performed By: #### [id number] #### [facility] [address], [place] [address]LSKUKHGUGCGbemdta By: Isha Zheng on 24-77-5882AVR (Bld) [Velocity]18 mm/hNormal0 - 34 mm/hrFT HemeAutoSSSed Rate Automatedon 61-26-0761OKT (Bld) [Velocity]18 mm/hNormal0-34[facility] Comment on above:Performed By: #### [id number] #### [facility] [address], [place] [address]ZIJis 93-39-4045ZCR Qn4.97 m[IU]/LNormal0.34-5.60Protestant HospitalComment on above:Performed By: #### [id number] #### [facility] [address], [place] [address]Mxg B12on 82-24-5796Envoclehb (Vitamin B12) [Mass/Vol]328 pg/mL Rbykcn26-7216UzzispProtestant HospitalComment on above:Performed By: #### [id number] #### [facility] [address], [place] [address]Xbiatn Medicine Office/Clinic Noteon 01-09-3785Nzqkrh Medicine Office/Clinic NoteFamily Medicine Office/Clinic Note Chief Complaint Right ear [...] Iron deficiency) Mild, as reported by her rush seater, labs from 2022 appear normal 6. Pre-diabetes (R73.03: Prediabetes) Last A1c Continue metformin Nutrition: - Maintain optimal weight - Calorie restriction - Plant-based diet; high polyunsatur (more content not included)...[facility]ronComment on above:Result Comment: Electronically Signed By: Jayant YEBOAH, Monica Varela\tana\Date and Time Signed: 11/09/23 15:56 EDTPhysician Referralon 58-35-7385Cboranljs Referral [id number] Health St. Joseph Warren HospitalAmbulatory Visit Summaryon 29-54-3577Mkomnwywqw Visit Summary SANNA RENDON :1985 Visit Date:10/23/2023 [...] (Vitamin D) fluticasone nasal (Flonase 0.05 mg/inh Her[place]) metformin (MetFORMIN (Eqv-Glucophage XR) 500 mg oral [...] EDT With: Penelope CASAS DO, FAAFP Where: [facility] Family Medicine Office/Clinic Noteon 66-32-7058Ygqupf Medicine Office/Clinic NoteChief Complaint pt here for [...] Mouth: mucous membranes pink, moist and intact. Becenti posterior oropharynx, no palatal inflammation,uvula midline, no [...] 106.2, kg, 10/23/23 16:55:00 EDT, Weight Dosing [facility] [place] Ambulatory Referral 2. Nasal polyps (J33.9: Nasal polyp, unspecified) pt reported - moved before previous ENT could perform surgery - submitted new referral at this time Ordered: [facility] [place]ulatory Referral 3. Deviated septum (J34.2: Deviated nasal septum) pt reported - moved before previous ENT could perform surgery - see #2 Ordered: [facility] [place]ulatory Referral 4. BMI 37.0-37.9, adult [...] for 7 day(s), 7.5 mL, Refill(s) 0, [facility]/pharmacy #[id number], 168, cm, 10/23/23 16:55:00 EDT, Height/Length Dosing, 106.2, kg, 10/23/23 16:55:00 EDT, Weight Dosing 5. Obesity ( (more content not included)...[facility] Comment on above:Result Comment: Electronically Signed By: Shirlene YEBOAH, Lourdes Baltazar\.br\Date and Time Signed: 10/23/23 17:13 EDTPatient Educationon 05-17-8852Pbbueos EducationENT Deviated Septum The septum is the [...] specializes in ear, nose, and throat disorders (dry chain worker, or ENT) for more tests and treatment. [...] Follow these instructions at home: ? Take crty-pxy-zzjuzwq and prescription medicines only as told by [...] specializes in ear, nose, and throat disorders (dry chain worker, or ENT) for more tests and treatment. This information is not intended to replace advice given to you by your health care provider. Make sure you discuss any questions you have with your health care provider. Document Revised: 12/12/2021 Document Reviewed: 12/12/2021 [employer] Patient Education ? 2022 [employer]. Nasal Polyps Nasal polyps are growths that form in the nose. Inflammation in the nose or sinus openings can leadto changes in the tissue (mucosa) that lines these areas. Long-term inflammation causes the mucosa to grow into a polyp filled with watery mucus. Nasal polyps look like moist, ochoa grapes in the nose. Nasal polyps are not cancer (more content not included)...[facility]ronCT Abdomen/Pelvis w/o Contraston 66-46-7672TS Abdomen/Pelvis w/o Contrast Exam Date/Time: 09/28/2023 19:58 [...] Given? No Oral contrast amount in ml's: 0[facility] - AkronB hCG Qualon 49-81-2810Ytfu HCG ( test) QlNegativeSelect Medical Specialty Hospital - [facility]ron Comment on above:Performed By: #### [id number] #### [facility] [address], [place] [address]ZHLuc 05-98-9570Dffhq gap [Moles/Vol]13 mmol/LNormal6-16Protestant HospitalComment on above:Performed By: #### [id number] #### [facility] [address], [place] [address]Evjfsmc [Mass/Vol]9.9 mg/dLNormal8.9-11.1FGood Samaritan HospitalComment on above:Performed By: #### [id number] #### [facility] [address], [place] [address]Mwkodkdj [Moles/Vol]101 mmol/EHntkle735-895FicqtyProtestant HospitalComment on above:Performed By: #### [id number] #### [facility] [address], [place] [address]CP9 [Moles/Vol]25 mmol/QLfomut27-65MagahyProtestant Hospital Comment on above:Performed By: #### [id number] #### [facility] [address], [place] [address]Uktidikgrt [Mass/Vol]0.9 mg/dLNormal0.5-1.3FGood Samaritan HospitalComment on above:Performed By: #### [id number] #### [facility] [address], [place] [address]Vnrlina [Mass/Vol]94 mg/nAKpgsmp07-349KyyqrfProtestant HospitalComment on above:Performed By: #### [id number] #### [facility] [address], [place] [address]Buobybgfz [Moles/Vol]3.6 mmol/LNormal3.5-5.3FGood Samaritan HospitalComment on above:Performed By: #### [id number] #### [facility] [address], [place] [address]Szagmj [Moles/Vol]135 mmol/QCawhhi881-397KyarekProtestant HospitalComment on above:Performed By: #### [id number] #### [facility] [address], [place] [address]Hrnx nitrogen [Mass/Vol]8 mg/dLNormal5-21Protestant HospitalComment on above:Performed By: #### [id number] #### [facility] [address], [place] [address]Prla nitrogen/Creatinine [Mass ratio]9 No WurzgIkw95-64AssinkProtestant HospitalComment on above:Performed By: #### [id number] #### [facility] [address], [place] [address]QCI w/ Auto Diffon 53-83-7608Pzjzaatqf/100 WBC (Bld)0.7 %Normal 0.0-2.0Protestant HospitalComment on above:Performed By: #### [id number] #### [facility] [address], [place] [address]Dmmholeir/Leukocytes Auto (Bld) [Pure # fraction]0.1 E9/LNormal 0.0-0.2FGood Samaritan HospitalComment on above:Performed By: #### [id number] #### [facility] [address] [place] [address]Wpywwejohdj (Bld) [#/Vol]0.0 E9/LNormal0.0-0.5FGood Samaritan HospitalComment on above:Performed By: #### [id number] #### [facility] [address] [place] [address]Stggmywklln/100 WBC (Bld)0.5 %Normal0.0-8.0Protestant HospitalComment on above:Performed By: #### [id number] #### [facility] [address] [place] [address]Fnbhfzpqcvf distribution width (RBC) [Ratio]14.3 %High10.9-14.2 Protestant HospitalComment on above:Performed By: #### [id number] #### [facility] [address] [place] [address]Etujdbbrpd (Bld) [Volume fraction]39.5 %Hzycfp31.0-46.0Protestant HospitalComment on above:Performed By: #### [id number] #### [facility] [address] [place] [address]Vbhohfdzwn (Bld) [Mass/Vol]13.2 g/xYZvncff15.0-16.0Protestant HospitalComment on above:Performed By: #### [id number] #### [facility] [address] [place] [address]Xlytczagmnc (Bld) [#/Vol]3.5 E9/LNormal1.0-4.0Protestant HospitalComment on above:Performed By: #### [id number] #### [facility] [address] [place] [address]Izdutsrwhzb/100 WBC (Bld)35.6 %Qcfzmi50.0-50.0Protestant HospitalComment on above:Performed By: #### [id number] #### [facility] [address] [place] [address]87[address]IMC (RBC) [Entitic mass]29.3 ffGgzwpi97.0-34.0Protestant HospitalComment on above:Performed By: #### [id number] #### [facility] [address] [place] [address]27[address]ZSTN (RBC) [Mass/Vol]33.5 g/gIIyffnb81.4-36.0Protestant HospitalComment on above:Performed By: #### [id number] #### [facility] [address] [place] [address]VMW (RBC) [Entitic vol]87.4 uDMrydwf38.0-100.0Protestant HospitalComment on above:Performed By: #### [id number] #### [facility] [address] [place] [address]Ixttbnjxd (Bld) [#/Vol]0.7 E9/LNormal0.2-1.0Protestant HospitalComment on above:Performed By: #### [id number] #### [facility] [address] [place] [address]Fkqjngvodub (Bld) [#/Vol]5.6 E9/LNormal2.0-7.5FGood Samaritan HospitalComment on above:Performed By: #### [id number] #### [facility] [address] [place] [address]Oeyurmrpord/100 WBC (Bld)56.4 %Kmjpik08.0-75.0Protestant HospitalComment on above:Performed By: #### [id number] #### [facility] [address] [place] [address]Jjdyvczf mean volume (Bld) [Entitic vol]8.1 fLNormal6.4-10.8 Protestant HospitalComment on above:Performed By: #### [id number] #### [facility] [address], [place] [address]Uqqvocexe (Bld) [#/Vol]360.0 E9/XFluize152.0-500.0Protestant HospitalComment on above:Performed By: #### [id number] #### [facility] [address], [place] [address]CJO (Bld) [#/Vol]4.5 E12/LNormal4.3-5.9Protestant HospitalComment on above:Performed By: #### [id number] #### [facility] [address], [place] [address]ANU corrected for nucl RBC Auto (Bld) [#/Vol]9.9 E9/LNormal 4.0-11.0Protestant HospitalComment on above:Performed By: #### [id number] #### [facility] [address], [place] [address]DXLOKAXVEQnudizq By: SYSTEM SYSTEM on 79-03-6638Ufeljxu [Mass/Vol]4.8 g/dLNormal3.3 - 5.0 gm/dLRemisol ChemAlbumin/Globulin [Mass ratio] 1.6 {ratio}Normal1.1 - 2.2Remisol ChemALP [Catalytic activity/Vol]66 [iU]/d Obcztr45 - 98 Int._Unit/LRemisol ChemALT No additional P-5'-P [Catalytic activity/Vol]16 [iU]/dNormal6 - 46 Int._Unit/LRemisol ChemAnion gap [Moles/Vol] 13 mmol/LNormal6 - 16 mEq/LRemisol ChemAST [Catalytic activity/Vol]15 [iU]/d Normal5 - 43 Int._Unit/LRemisol ChemBilirubin [Mass/Vol]0.3 mg/dLNormal0.0 - 1.1 mg/dLRemisol ChemBilirubin.direct [Mass/Vol]0.0 mg/dLNormal0.0 - 0.4 mg/dL Remisol ChemBilirubin.indirect [Mass or moles/Vol]0.3 mg/dLNormal0.1 - 0.9 mg/dL Remisol ChemCalcium [Mass/Vol]9.9 mg/dLNormal8.9 - 11.1 mg/dLRemisol Chem Chloride [Moles/Vol]101 mmol/QZhqqli278 - 111 mmol/LRemisol ChemCO2 [Moles/Vol] 25 mmol/LTjlzxx39 - 31 mmol/LRemisol ChemCreatinine [Mass/Vol]0.9 mg/dLNormal0.5 - 1.3 mg/dLRemisol UlzcxFRK37 mL/min/1.73 f3Onjsws>=59mL/min/1.73 d5Owobjcw ChemGlobulin (S) [Mass/Vol]3.0 g/dLNormal1.4 - 4.0 gm/dLRemisol ChemGlucose [Mass/Vol]94 mg/zXLdyrnx57 - 199 mg/dLRemisol ChemLipase [Catalytic activity/Vol]26 U/XTibzsv89 - 58 unit/LRemisol ChemPotassium [Moles/Vol]3.6 mmol/LNormal3.5 - 5.3 mmol/LRemisol ChemProtein [Mass/Vol]7.8 g/dLNormal6.0 - 7.8 gm/dLRemisol ChemSodium [Moles/Vol]135 mmol/MRhdfqx959 - 145 mmol/LRemisol ChemUrea nitrogen [Mass/Vol]8 mg/dLNormal5 - 21 mg/dLRemisol ChemUrea nitrogen/Creatinine [Mass ratio]9 mg/mgLow10 - 20Remisol ChemConsent for Treatmenton 21-69-8275Vnedimo for Treatment [id number] Health St. Joseph Warren HospitalDischarge Instructionson 59-92-8012Jzolpdvth Instructions [id number] Memorial Hospital Clinical Summaryon 23-48-0819UO Clinical Summary [place] [id number] ED Clinical Summary Person Information Name: SANNA RENDON [facility]ita/[facility] Age: 37 Years : 1985 Sex: Female Language: Bangladeshi PCP: Penelope CASAS DO, FAAFP Marital Status: Phone: [phone] Visit Id: Visit Reason: Medical problem - [...] 09/28/2023 21:22:15 09/28/2023 21:22:15 09/28/2023 21:22:15 ADDRESS: [address] [place] [id number] PHYS DOC NOTES: MEDICAL INFORMATION: Prescriptions Given: Medications to Continue with No Changes Other Medications enoxaparin (Lovenox 40 mg/0.4 mL Injection) 40 Milligram Subcutaneous every 24 hours. ergocalciferol (Vitamin D) 2,000 International unit By Mouth every week. fluticasone nasal (Flonase 0.05 mg/inh [place]) 2 Sprays Nasal Inhalation every day. each nostril. metformin (MetFORMIN (Eqv-Glucophage XR) 500 mg oral tablet, extended release) 2 Tablets By Mouth every day. PATIENT EDUCATION INFORMATION: Instructions: Abdominal Pain, Adult Follow up: With: Address: When: Penelope [facility] [place], [place] [address] Business (1) In 3 days DIAGNOSIS: 1:Abdominal painNormalFisher Cotton Medical CenterED Note-Physicianon 09-28-2023 ED Note-PhysicianPatient was [...] understanding agreement this plan is discharged stable condition.[facility] AkronComment on above:Result Comment: Electronically Signed By: Sidney Daly DO\.br\Date and Time Signed: 09/28/23 21:12 EDTED Note-PhysicianBasic Information Time Seen: Bijan Miramontes PA-C 09/28/2023 18:46 Chief Complaint Pt woke up around 7 am and started getting a pain on R side of belly button. States feels bloated and like her abdomen is coral.[facility] for possible appendicitis. Nausea, denies vomiting. [...] mL, IV, Once Home Flonase 0.05 mg/inh [place]kimer, 2 spray(s), Nasal, Daily Lovenox 40 mg/0.4 [...] Lab Results No qual (more content not included)...[facility] - AkronComment on above:Result Comment: Electronically Signed By: Bijan Miramontes PA-C\.br\Date and Time Signed: 09/27/2417:50 EDT\.br\Electronically Co-Signed By: Benny Uribe DO\.br\Date and Time Co-Signed: 09/27/2418:44 EDTED Patient Education Noteon 50-64-5373WV Patient Education NoteGastroenterology Abdominal Pain, Adult Pain [...] these instructions at home: Medicines ? Take hzhi-amn-riudqrp and prescription medicines only as told by [...] your condition for any changes. ? Take fikd-fji-wnottge and prescription medicines only as told by [...] provider. Document Revised: 06/04/2020 Document Reviewed: 08/25/2019 [employer] Patient Education ? 2022 [employer].[facility] ED Patient Summaryon 35-57-4748PR Patient Summary [address] [address] Patient Discharge Instructions Person Information Name: SANNA RENDON Age: 37 Years Arrival Date: 09/28/2023 18:21:25 Discharge Diagnosis: 1:Abdominal pain Primary Care Physician: Penelope CASAS DO, FAAFP Provider Information Primary Provider: Benny Uribe DO Advanced Fibre Technologist:Bijan Miramontes PA-C The exam and treatment you received in the Emergency Department were for an urgent problem and are not intended as complete care. It is important that you follow up with a doctor, nurse practitioner,or physician?s malt specifications control assistant for ongoing care. If your symptoms [...] Follow-up Instructions: With: Address: When: Penelope CASAS [address] [place] [address], [facility] [place] [address] Business (1) In 3 days In the event that this physician does not participate in your insurance network, please consult with your insurance company to find a nearby participating provider. Patient Education Materials: Abdominal Pain, Adult A MESSAGE TO ALL PATIENTS REGARDING OPIOIDS PRESCRIPTION OPIOIDS: WHAT YOU NEED TO KNOW Prescription opioids can be used to help relieve gewtuqcv-ao-fyfyvu pain and are often prescribed following a [...] your community drug take- back program or yourpharmacy mail-back program, or flush them down the toilet, following guidance from the Food and Drug Administration (www.fda.gov/Drugs/ResourcesForYou). ? Visit www.cdc.gov/drugoverdose to learn about the risks of opioids abuse and overdose. ? If you believe you may be struggling with addiction, tell your health home day care provider and ask for guidance or call [facility] National Helpline at 2-677-335-HELP. v Source: US Dep (more content not included)...[facility] Medicine Office/Clinic Noteon 83-34-6022Xrgakw Medicine Office/Clinic NoteChief Complaint abdominal pain HPI [...] agree with above documented HPI by medical officer psychiatry. Portions of this record may have been created with voice recognition artificial intelligence software, specifically [employer], [employer] and or [employer]. Substitutions may have occurred due to the inherent limitations of voice recognition and artificial intelligence software. Patient is a 37-year-old female who [facility], for right lower quadrant pain, [...] express, for right lower quadrant abdominal pain, worseningsymptoms throughout the day, history of ovarian cyst, still has her appendix, no right upper quadrant pain. Patient worsening pain on exam, but no acute abdomen. Patient is willing to go to the emergency room after being discharged from [facility] express, for further evaluation of right lower quadrant [...] loss. We can o (more content not included)...[facility] - AkronComment on above:Result Comment: Electronically Signed By: JANET DUNHAM PA-C\.br\Date and Time Signed: 09/28/23 18:28 EDTHEMATOLOGYOrdered By: SYSTEM SYSTEM on 01-94-7520Nwmjyrsyf/100 WBC (Bld)0.7 %Normal0.0 - 2.0 %Remisol HemeBasophils/Leukocytes Auto (Bld) [Pure # fraction]0.1 E9/LNormal0.0 - 0.2 E9/LRemisol HemeEosinophils (Bld) [#/Vol]0.0 E9/LNormal0.0 - 0.5 E9/LRemisol HemeEosinophils/100 WBC (Bld)0.5 % Normal0.0 - 8.0 %Remisol HemeErythrocyte distribution width (RBC) [Ratio]14.3 % High10.9 - 14.2 %Remisol HemeHematocrit (Bld) [Volume fraction]39.5 %Ohrndu84.0 - 46.0 %Remisol HemeHemoglobin (Bld) [Mass/Vol]13.2 g/rLXlhkwj24.0 - 16.0 gm/dL Remisol HemeLymphocytes (Bld) [#/Vol]3.5 E9/LNormal1.0 - 4.0 E9/LRemisol Heme Lymphocytes/100 WBC (Bld)35.6 %Mdudoz94.0 - 50.0 %Remisol HemeMCH (RBC) [Entitic mass]29.3 ypVdxtxy10.0 - 34.0 pgRemisol HemeMCHC (RBC) [Mass/Vol]33.5 g/dL Erngyw43.4 - 36.0 gm/dLRemisol HemeMCV (RBC) [Entitic vol]87.4 sBPkiast55.0 - 100.0 fLRemisol HemeMonocytes (Bld) [#/Vol]0.7 E9/LNormal0.2 - 1.0 E9/LRemisol HemeMonocytes/100 WBC (Bld)6.8 %Normal4.0 - 14.0 %Remisol HemeNeutrophils (Bld) [#/Vol]5.6 E9/LNormal2.0 - 7.5 E9/LRemisol HemeNeutrophils/100 WBC (Bld)56.4 % Mmwwmw82.0 - 75.0 %Remisol HemePlatelet mean volume (Bld) [Entitic vol]8.1 fL Normal6.4 - 10.8 fLRemisol HemePlatelets (Bld) [#/Vol]360.0 E9/CVxrwmv723.0 - 500.0 E9/LRemisol HemeRBC (Bld) [#/Vol]4.5 E12/LNormal4.3 - 5.9 E12/LRemisol HemeWBC corrected for nucl RBC Auto (Bld) [#/Vol]9.9 E9/LNormal4.0 - 11.0 E9/L Remisol HemeHep Func Panelon 19-42-3996Tkjinlp [Mass/Vol]4.8 g/dLNormal3.3-5.0 Protestant HospitalComment on above:Performed By: #### [id number] #### [facility] [address] [place], [place] [address]Xhjkccc/Globulin (S) [Mass conc ratio]1.6Qyltik8.1-2.2FGood Samaritan HospitalComment on above:Performed By: #### [id number] #### [facility] [address] [place], [place] [address]ISE [Catalytic activity/Vol]66 Int._Unit/ZAvphsi58-87FtwpxkProtestant HospitalComment on above:Performed By: #### [id number] #### [facility] [address] [place], [place] [address]CNX No additional P-5'-P [Catalytic activity/Vol]16 Int._Unit/L Normal6-46Protestant HospitalComment on above:Performed By: #### [id number] #### [facility] [address] [place], [place] [address]YPK [Catalytic activity/Vol]15 Int._Unit/LNormal5-43Protestant HospitalComment on above:Performed By: #### [id number] #### [facility] [address] [place] [address]Dvxiqkpwz [Mass/Vol]0.3 mg/dLNormal0.0-1.1FGood Samaritan HospitalComment on above:Performed By: #### [id number] #### [facility] [address] [place], [place] [address]Thoguhdgt.direct [Mass/Vol]0.0 mg/dLNormal0.0-0.4FGood Samaritan HospitalComment on above:Performed By: #### [id number] #### [facility] [address] [place] [address]Tqmpiotqd.indirect [Mass or moles/Vol]0.3 mg/dLNormal0.1-0.9 Protestant HospitalComment on above:Performed By: #### [id number] #### [facility] [address] [place] [address]Qtjbngvm (S) [Mass/Vol]3.0 g/dLNormal1.4-4.0Protestant HospitalComment on above:Performed By: #### [id number] #### [facility] [address] [place] [address]Macqdvw [Mass/Vol]7.8 g/dLNormal6.0-7.8Pro[facility]ant HospitalComment on above:Performed By: #### [id number] #### [facility] [address] [place] [address]Ybvdrt Levelon 49-93-4567Vylmrl [Catalytic activity/Vol]26 U/L Ayorpo09-14NjphjzProtestant HospitalComment on above:Performed By: #### [id number] #### [facility] [address] [place], [place] [address]Bsbbwdq Educationon 42-16-2010Mnzjhjn EducationCardiovascular Hypertension, Adult Hypertension is another name [...] Keep all follow-up visits. Medicines ? Take azer-ird-lgsljdj and prescription medicines only as told by [...] blood. ? For m (more content not included)...[facility]ronRAD - Preliminary Cat Scan Reporton 41-43-6457APK - Preliminary Cat Scan Report [id number]#1.00TIFFNormCorey HospitalEROLOGYOrdered By: Amanda Siegel on 20-54-8000Teuy HCG ( test) QlNegative (09/28/23 6:59 PM)Critical access hospital Man SeroUA with Cult Rflxon 25-89-2622Epaeptsbj Ql (U)NegativeNormalNegMercy Health Urbana HospitalComment on above:Performed By: #### [id number] ####[facility] [address] [place], [place]Clarity (U)ClearNormalClearProtestant HospitalComment on above:Performed By: #### [id number] ####[place] [place], [place]Color (U)ColorlessAbnormalYellowProtestant HospitalComment on above:Result Comment: Microscopic readings are only performed on those samples that meet specific criteria set forth by [facility].Performed By: #### [id number] ####[facility] [address] [place], [place] [address]Glucose Ql (U)Negative NormalNegMercy Health Urbana HospitalComment on above:Performed By: #### [id number] ####[facility] [address] [address]Jdlfvuiusd Auto test strip (U) [Mass/Vol]NegativeNormalNegativeProtestant HospitalComment on above:Performed By: #### [id number] ####[address] [place]Wzlawsy Auto test strip Ql (U)NegativeNormalNegativeProtestant HospitalComment on above: Performed By: #### [id number] ####[address]Leukocyte esterase Auto test strip Ql (U)Negative NormalNegativeProtestant HospitalComment on above:Performed By: #### [id number] ####[address] [address]Yeuonim Auto test strip Ql (U)NegativeNormalNegMercy Health Urbana HospitalComment on above:Performed By: #### [id number] ####[address], IM[address]mJ (U)7.0 [pH]Invalid Interpretation Code5.0-9.0Protestant HospitalComment on above:Performed By: #### [id number] ####[address]Protein Ql (U)NegativeNormalNegMercy Health Urbana HospitalComment on above:Performed By: #### [id number] ####[address] Y[place]Lmhojrew gravity (U) [Rel density]1.003Invalid Interpretation Code1.005-1.030[facility] Comment on above:Performed By: #### [id number] ####[address], RR[address]Ddxgsactkiba (U) [Mass/Vol]Negative NormalNegativeProtestant HospitalComment on above:Performed By: #### [id number] ####[address], [place] [address]Eajq of Urine collection methodClean CatchNormalFishBrook Lane Psychiatric Center Comment on above:Performed By: #### [id number] ####[facility] [address] [place]LPAMAVHYECWzihftq By: SYSTEM SYSTEM on 37-86-7451Dqkletmla Ql (U)NegativeNormalNegativemg/dLSELECT [facility] [place] Auto SSClarity (U) Clear (09/28/23 7:35 PM)NormalClearFSHARE MEDICAL CENTER – ALVA UA Auto SSColor (U)Colorless 1 *ABN* (09/28/23 7:35 PM)Invalid Interpretation CodeYellowSELECT SPECIALTY H[facility] [place] [place] UA Auto SSComment on above:Interpretive Data: Microscopic readings are only performed on those samples that meet specific criteria set forth by [facility].Glucose Ql (U)NegativeNormalNegativemg/dLFT UA Auto SSHemoglobin Auto test strip (U) [Mass/Vol]NegativeNormalNegativemg/dLSELECT [facility] [place] [facility] Auto SSKetones Auto test strip Ql (U)NegativeNormalNegativemg/dLFT UA Auto SSLeukocyte esterase Auto test strip Ql (U)NegativeNormalNegativeLeu/uLFT UA Auto SS Nitrite Auto test strip Ql (U)NegativeNormalNegativemg/dLSELECT [facility] [place] Auto SSpH (U) 7.0 *NA* (09/28/23 7:35 PM)Invalid Interpretation Code5.0 - 9.0[facility] Auto SSProtein Ql (U)NegativeNormalNegativemg/dLSELECT [facility] [place] [facility] Auto SSSpecific gravity (U) [Rel density] 1.003 *NA* (09/28/23 7:35 PM)Invalid Interpretation Code1.005 - 1.030[facility] Auto SS Urobilinogen (U) [Mass/Vol]NegativeNormalNegativemg/dLSELECT [facility] [place] [facility] Auto SSURINALYSIS Ordered By: Bijan Miramontes on 19-10-3297PK Spec DescClean Catch (09/28/23 7:35 PM)NormalSELECT [facility] [place] UA Auto SS eGFRon 86-46-8240dHSD26 mL/min/1.73 m2Bedqoo>=[address] Agnes HospitalComment on above:Order Comment: Order added by Discern Expert.Performed By: #### [id number] #### [facility] [address] [place], [place] [address]Cvrwabeiod Visit Summaryon 98-96-6856Pzzrkgogqu Visit Summary SANNA RENDON :1985 Visit Date:08/03/2023 [...] (Vitamin D) fluticasone nasal (Flonase 0.05 mg/inh [place]) metformin (MetFORMIN (Eqv-Glucophage XR) 500 mg oral [...] months Where: [address], [place] [address]- You Need to Complete the Following HgbA1c, [...] Unchanged fluticasone nasal (Flonase 0.05 mg/ inh [place]) 2 Sprays Nasal Inhalation Every day each [...] ? Walking a mile (more content not included)...[facility] Medicine Office/Clinic Noteon 23-02-7065Zxvmvh Medicine Office/Clinic NoteChief Complaint Wants to discuss [...] comfortable with plan. PNMV Ordered: A1c POC 65626 Total time spent preparing the chart, conducting [...] Penelope CASAS DO, FAAFP, CHRIS, PED In 4 months [address] [facility] [address], [place] [address]- Additional Instructions: Patient Education Exercising to Lose Weight Problem Lis (more content not included)...[facility] Comment on above:Result Comment: Electronically Signed By: [...] health care provider or diet and nutrition aide (dietitian). This may include: ? Eating fewer [...] regular exercise is e (more content not included)...[facility] - AkronPatient Educationon 75-17-8742Zpcurwo EducationEndocrinology Blood Glucose Monitoring, Adult Monitoring your [...] by following in (more content not included)...NormalFisher St. Agnes HospitalLab Reportson 85-36-4146Buq Reports [id number] HospitalConsultation Noteon 68-90-3897Ujfmocpfihrc Note [id number]#1.00Marymount HospitalAmbulatory Visit Summaryon 80-97-9802Pjxqquydda Visit Summary SANNA RENDON :1985 Visit Date:05/25/2023 Ambulatory Visit Instructions Your Diagnosis BMI 37.0-37.9, adult Other obesity Morbid obesity Your Care Team Attending Physician - Peneloep CASAS DO, FAAFP Primary Care Physician - [...] EDT With: Penelope CASAS DO, FAAFP [facility] Office/Clinic Noteon 17-74-9599Zdotdg Medicine Office/Clinic NoteChief Complaint States she is [...] Benadryl. 2. Dyshidrotic eczema (L30.1: Dyshidrosis [pompholyx]) Wkcc-xxm-hhjyils hydrocortisone cream 1% or 2.5% as directed. [...] RESENDEZ FAAFP, Penelope Tony, CHRIS, PED In 2 months [address] [facility] [address], [place] [address]- Additional Instructions: Patient Education Eustachian Tube Dysfunction Dyshidrotic Eczema Allergies, Tadeo (more content not included)...[facility] Comment on above:Result Comment: Electronically Signed By: Penelope CASAS DO, FAAFP\Date and Time Signed: 05/25/23 12:02 ESTPatient Educationon [...] ears completely after. General instructions ? Take pvan-qxe-xiiiiom and prescription medicines only as told by [...] cases are treated w (more content not included)...[facility] Hospital - AkronC Urineon 01-21-4886Dxupvboi identified Cx Nom (U) Microbiology PROCEDURE: Urine Culture [R1] SOURCE: U Random BODY SITE: COLLECTED DATE/TIME: 05/01/2023 18:00 EST RECEIVED DATE/TIME: 05/01/2023 18:08 EST START DATE/TIME: 05/01/2023 18:08 EST FREE TEXT SOURCE: Penelope CASAS DO, FAAFP, DO, FAAFP, Penelope Tony FINAL REPORTS Final Report [] Verified Date/Time: 05/03/2023 07:00 EST <10,000 cfu/ml Mixed skin contaminants Performing Locations R1: This test was performed at: [employer] [facility], [address] [place] [address], [facility] , , PnrphjBmggthSelect Medical Specialty Hospital - AkronComment on above:Performed By: #### [id number] ####[place], [place] [address]Consent for Treatmenton 27-54-6078Kednhnz for Treatment [id number] Medical Specialty Hospital - AkronUrinalysison 00-20-6265Kvcgktqa LM Ql (Urine sed)TRACENoSumma Health Akron CampusComment on above:Performed By: #### [id number] ####[facility] [address] [address]Rexiohvkd Ql (U) NegativeNormalNegativeProtestant HospitalComment on above:Performed By: #### [id number] ####[address] [address]Qthojyv (U)CLOUDYAbnormalClearFisher St. Agnes HospitalComment on above:Performed By: #### [id number] ####[facility] [address] [address]Tyfsg (U)YELLOWNormalYellowProtestant HospitalComment on above:Performed By: #### [id number] ####[address] [address]Wtxeacorrt cells.squamous LM.HPF (Urine sed) [#/Area]/[HPF]Normal0-2Fisher St. Agnes HospitalComment on above:Performed By: #### [id number] ####[address] [address]Zmzhwrc Test strip (U) [Mass/Vol]NegativeNormal NegativeProtestant HospitalComment on above:Performed By: #### [id number] ####[address] [address] Hemoglobin Ql (U)NegativeNormalNegativeProtestant HospitalComment on above:Performed By: #### [id number] ####[address] [address]Cqxjhqw (U) [Mass/Vol]NegativeNormalNegativeProtestant HospitalComment on above:Performed By: #### [id number] ####[address] [address] [place].plasma/[place].RBC (Bld) [Mass ratio]9-9Vtzbct2-4Mqyfzq St. Agnes HospitalComment on above:Performed By: #### [id number] ####[facility] [address] [address]Xruyivd Ql (U)NegativeNormal NegativeProtestant HospitalComment on above:Performed By: #### [id number] ####[address] [address]lW (U)6.0 [pH]Invalid Interpretation Code5.0-9.0Protestant HospitalComment on above:Performed By: #### [id number] ####[address] [address]Noyxvit (U) [Mass/Vol]NegativeNormal NegativeProtestant HospitalComment on above:Performed By: #### [id number] ####[address] [address] Specific gravity (U) [Rel density]<=1.005Invalid Interpretation Code1.005-1.030 Protestant HospitalComment on above:Performed By: #### [id number] ####[address] [address]Rmjq of Urine collection methodClean CatchNormalProtestant HospitalComment on above:Performed By: #### [id number] ####[address] [address]Xseqcmnntpwg Qn (U)0.2 {Nicole'U}/dLNormal0.0-1.0 Protestant HospitalComment on above:Performed By: #### [id number] ####[address] [address]SRZ Auto Ql (U)TRACEAbnormalNegativeProtestant HospitalComment on above: Performed By: #### [id number] ####[address] [address]NJX LM.HPF (Urine sed) [#/Area]7-1Nedkok0-5Mzkngn St. Agnes HospitalComment on above:Performed By: #### [id number] ####[address], [place] [address]Zzywdpytiv Visit Summaryon 57-73-7226Wzbcsgbdrx Visit Summary SANNA RENDON :1985 Visit Date:04/27/2023 [...] EST With: Penelope CASAS DO, FAAFP [facility] Care[facility] CHEMISTRYOrdered By: SYSTEM SYSTEM on 62-76-9779SWC Qn4.04 m[IU]/LNormal0.34 - 5.60 mcIU/mLRemisol ChemFami Medicine Office/Clinic Noteon 20-61-8059Wlyabv Medicine Office/Clinic NoteChief Complaint Since last Sunday has been having joint pain with burning sensation and has been having diarrheawith stomach pain. States her kids are sick. Also has been having burning in her nipples, she is . Wants her thyroid checked. History of Present Illness Children are sick at home and has been having diarrhea since Sunday before [place], nonbloody with some associated stomach pain. She has been having some burning in her nipples when she is breast-feeding and wants her thyroid checked. Muscle aches and pains like flu Still breast feeding. No loss of taste nor smell. [id number] while taking Glucophage XR 500 mg p.o. [...] Push fluids and Tylenol and or ibuprofen rkab-wmf-jyzqomv as directed. Patient does not appear ill [...] Your BMIand weight manag (more content not included)...NormalHugh Chatham Memorial Hospitaler St. Agnes HospitalComment on above: Result Comment: Electronically Signed By: Penelope CASAS DO, FAAFP.cedrick\Date and Time Signed: 04/27/23 12:53 ESTPatient Educationon 66-76-3944Cwhwcnm Education Endocrinology Diabetes Mellitus and Exercise Exercising [...] plan? Your health care provider or certified adaptive physical educator can help you make a plan for [...] stroke). Where to find more information ? [place] [employer]: www.diabetes.org Summary ? Exercising regularly is important for overall health, especially for people who have diabetes mellitus. ? Exercising has many health benefits. It increases muscle strength and bone density and reduces body fat and stress. It also lowers and controls blood glucose. ? Your health care provider or certified adaptive physical educator can help you make an activity plan [...] Reviewed: 01/12/2020 Elsevier Patient Education ? 2022 [employer] Preventing Hypoglycemia Hypoglycemia occurs when the level of sugar (glucose) in the blood is too low. Hypoglycemia can happen in people who do or do not have diabetes (diabetes (more content not included)...NormalProtestant HospitalTSHon 24-88-6394OLV Qn 4.04 m[IU]/LNormal0.34-5.60Protestant HospitalComment on above:Performed By: #### [id number] ####[facility] [address] [place], [place] [address]Bjcfvquqvy Visit Summaryon 16-14-9732Dqsbyhlwnr Visit Summary SANNA RENDON :1985 Visit Date:02/15/2023 [...] PED When: In 2 months Where: [address] [place] [address]- You Need to Complete the Following HgbA1c, [...] miscarriage Suspected COVID-19 virus infection Vaginal tabitha [facility] Medicine Office/Clinic Noteon 65-17-9603Cxpziz Medicine Office/Clinic NoteChief Complaint States since Sunday evening her right ear is draining and is a little painful History of Present Illness Book Critic draining since Sunday evening and a little [...] pain of ear shake well before using, [facility], 168, cm, 02/15/23 9:49:00EDT, Height/Length Dosing, 108, [...] in , unspecified control) 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 She is continuing 500 mg of [...] Contact Information PRAVEEN Johnson (more content not included)...[facility] - AkronComment on above:Result Comment: Electronically Signed By: PRAVEEN RESENDEZ FAAFP, Penelope Tony\.br\Date and Time Signed: 02/15/23 10:13 EDTPatient Educationon [...] cannot use soap and water, use hand solar sales energy advisor. 2. Make sure your ears are clean [...] cannot use soap and water, use hand solar sales energy advisor. Follow these instructions at home: ? Use [...] provider. Document Revised: 02/11/2020 Document Reviewed: 02/11/2020 [employer] Patient Education ? 2022 [employer] Infectious Disease Otitis Externa Otitis externa [...] you start to feel better. ? Take snij-ecc-jhixovs and prescription medicines only as told by your doctor. ? Avoid getting water in your ears as told by your doctor. You may be told to avoid swimming or water sports for a few days. ? Keep all follow-up visits. How is this prevented? ? Keep your ears dry. Use the corner o (more content not included)...Normal [facility] Educationon 47-21-2604Qpqixwj Education Immunology Fatigue If you have fatigue, [...] these instructions at home: Medicines ? Take ashd-zvw-barxbno and prescription medicines only as told by [...] the National Suicide Prevention Lifeline at or 653. This is open 24 hours a day. ? Text the Crisis Text Line at 907235. Summary ? If you have fatigue, you [...] provider. Document Revised: 02/06/2022 Document Reviewed: 02/06/2022 [email or web address] Patient Education ? 2022 [employer] Urology Urodynamic Testing Urodynamic tests are [...] ? Leaking urine (inco (more content not included)...NormalProtestant HospitalCHEMISTRYOrdered By: SYSTEM SYSTEM on 30-10-0926Tohb T4 [Mass/Vol]0.58 ng/dLNormal0.58 - 1.64 ng/dLFT RemisolTSH Qn3.35 m[IU]/LNormal0.34 - 5.60 mcIU/mLFT RemisolAlbumin [Mass/Vol]4.5 g/dLNormal3.3 - 5.0 gm/dLFT Remisol Albumin/Globulin [Mass ratio]1.4 {ratio}Normal1.1 - 2.2[facility] RemisolALP [Catalytic activity/Vol]62 [iU]/qTkqvnq22 - 98 Int._Unit/LFTMC RemisolALT No additional P-5'-P [Catalytic activity/Vol]27 [iU]/dNormal6 - 46 Int._Unit/LFTMC RemisolAnion gap [Moles/Vol]13 mmol/LNormal6 - 16 mEq/LFTMC RemisolAST [Catalytic activity/Vol]21 [iU]/dNormal5 - 43 Int._Unit/LFTMC RemisolBilirubin [Mass/Vol]0.3 mg/dLNormal0.0 - 1.1 mg/dLFTMC RemisolCalcium [Mass/Vol]9.6 mg/dL Normal8.9 - 11.1 mg/dLFTMC RemisolChloride [Moles/Vol]104 mmol/KOkuzyn510 - 111 mmol/LFTMC RemisolCO2 [Moles/Vol]25 mmol/SGwejqm57 - 31 mmol/LFTMC Remisol Cobalamin (Vitamin B12) [Mass/Vol]211 pg/aDShnqvk80 - 1500 pg/mLFTMC Remisol Creatinine [Mass/Vol]0.9 mg/dLNormal0.5 - 1.3 mg/dLFTMC RemisolFerritin [Mass/Vol]38 ng/oWTcfvvc77 - 307 ng/mLFTMC RemisolFolate [Mass/Vol]13.5 ng/mL Normal>=6.7ng/mLFTMC RemisolGFR/1.73 sq M.predicted among non-blacks MDRD (S/P/Bld) [Vol rate/Area]85 mL/min/1.73 p0Knqiqv>=59mL/min/1.73 m2[facility] Chem S Globulin (S) [Mass/Vol]3.3 g/dLNormal1.4 - 4.0 gm/dLFTMC RemisolGlucose [Mass/Vol]93 mg/rBKtkwpn47 - 199 mg/dLFTMC RemisolIron [Mass/Vol]56 ug/dLNormal 35 - 153 mcg/dLFTMC RemisolIron binding capacity [Mass/Vol]395 ug/sAIduofa987 - 400 mcg/dLFTMC RemisolPotassium [Moles/Vol]3.7 mmol/LNormal3.5 - 5.3 mmol/LFTMC RemisolProtein [Mass/Vol]7.8 g/dLNormal6.0 - 7.8 gm/dLFTMC RemisolSodium [Moles/Vol]138 mmol/NHfwawy345 - 145 mmol/LFTMC RemisolTransferrin [Mass/Vol]282 mg/xYQplpdh210 - 370 mg/dLFTMC RemisolUrea nitrogen [Mass/Vol]11 mg/dLNormal5 - 21 mg/dLFTMC RemisolUrea nitrogen/Creatinine [Mass ratio]12 mg/nuAuiepp12 - 20 [facility] RemisolHEMATOLOGYOrdered By: Eureka King SYSTEM on 75-30-4600Ekoooeomo/100 WBC (Bld)0.6 %Normal0.0 - 2.0 %[facility] HemeAutoSSBasophils/Leukocytes Auto (Bld) [Pure # fraction]0.0 E9/LNormal0.0 - 0.2 E9/LFTMC HemeAutoSSEosinophils/100 WBC (Bld) 1.1 %Normal0.0 - 8.0 %[facility] HemeAutoSSEosinophils/Leukocytes Auto (Bld) [Pure # fraction]0.1 E9/LNormal0.0 - 0.5 E9/LFTMC HemeAutoSSLymphocytes/100 WBC (Bld) 42.4 %Rpfahd48.0 - 50.0 %[facility] HemeAutoSSLymphocytes/Leukocytes Auto (Bld) [Pure # fraction]3.4 E9/LNormal1.0 - 4.0 E9/LFTMC HemeAutoSSMonocytes/100 WBC (Bld)8.0 %Normal4.0 - 14.0 %[facility] HemeAutoSSMonocytes/Leukocytes Auto (Bld) [Pure # fraction]0.6 E9/LNormal0.2 - 1.0 E9/LFTMC HemeAutoSSNeutrophils/100 WBC (Bld) 47.9 %Sngxbh47.0 - 75.0 %[facility] HemeAutoSSNeutrophils/Leukocytes Auto (Bld) [Pure # fraction]3.8 E9/LNormal2.0 - 7.5 E9/LFTMC HemeAutoSSHEMATOLOGYOrdered By: Trena Castro on 71-20-8266Yewthudpgea distribution width (RBC) [Ratio]14.5 % High10.9 - 14.2 %[facility] HemeAutoSSHematocrit (Bld) [Volume fraction]37.4 %Normal 34.0 - 46.0 %[facility] HemeAutoSSHemoglobin (Bld) [Mass/Vol]13.1 g/aBGcuihk80.0 - 16.0 gm/dLFTMC HemeAutoSSMCH (RBC) [Entitic mass]30.6 iwZmiacq12.0 - 34.0 pgFTMC HemeAutoSSMCHC (RBC) [Mass/Vol]34.9 g/dCBifnur83.4 - 36.0 gm/dLFTMC HemeAutoSS MCV (RBC) [Entitic vol]87.7 dXIphaly80.0 - 100.0 fLFTMC HemeAutoSSPlatelet mean volume (Bld) [Entitic vol]8.2 fLNormal6.4 - 10.8 fLFTMC HemeAutoSSPlatelets (Bld) [#/Vol]334.0 E9/ICreqiz714.0 - 500.0 E9/LFTMC HemeAutoSSRBC (Bld) [#/Vol] 4.3 E12/LNormal4.3 - 5.9 E12/LFTMC HemeAutoSSWBC corrected for nucl RBC Auto (Bld) [#/Vol]7.9 E9/LNormal4.0 - 11.0 E9/LFTMC HemeAutoSSCHEMISTRYOrdered By: SYSTEM SYSTEM on 72-64-1262Vxmo T4 [Mass/Vol]0.58 ng/dLNormal0.58 - 1.64 ng/dL [facility] RemisolTSH Qn3.10 m[IU]/LNormal0.34 - 5.60 mcIU/mL[facility] RemisolCHEMISTRY Ordered By: Valeri German on 42-24-6783RgY3f (Bld) [Mass fraction]5.9 %Normal <=5.9%[facility] ChemAutoSSCHEMISTRYOrdered By: SYSTEM SYSTEM on 04-78-6988Zbqe T4 [Mass/Vol]0.71 ng/dLNormal0.58 - 1.64 ng/dL[facility] RemisolTSH Qn3.77 m[IU]/LNormal 0.34 - 5.60 mcIU/mL[facility] RemisolCBC AUTO DIFFon 91-36-3567KPMW #0.0 103/ulNormal 0.0-0.1The [facility] Healthcare SystemComment on above:Performed By: #### HIV12 #### [facility] [address] [place] [address] Dr. Edward GillBasophils/100 WBC (Bld)0.4 %Normal0.2-2.0The [facility] Comment on above:Performed By: #### HIV12 #### [facility] [address] [address] [address] Edward Traore #0.1 103/ulNormal0.0-0.7The [facility] SystemComment on above: Performed By: #### HIV12 #### [facility] [address] [place] [address] Dr. Edward Calhounosinophils/100 WBC (Bld)1.3 %Normal0.9-7.0The [facility] Comment on above:Performed By: #### HIV12 #### [facility] [address] [place] [address] Dr. Ewdard Calhounrythrocyte distribution width (RBC) [Ratio]16.6 %Critically high 11.0-15.0The [facility] SystemComment on above:Performed By: #### HIV12 #### [facility] [address] [place] [address] Dr. Edward GillHematocrit (Bld) [Volume fraction]30.2 %Critically low36.0-48.0 The [facility] SystemComment on above:Performed By: #### HIV12 #### [facility] [address] [place] [address] Dr. Edward GillHemoglobin (Bld) [Mass/Vol]10.5 g/dLCritically low12.0-16.0[facility], IncComment on above:Performed By: #### HIV12 #### [facility] [address] [place] [address] Dr. Edward Ray #0.04 10e3/ulCritically high0.00-0.03The [facility] Comment on above:Performed By: #### HIV12 #### [facility] [address] [place] [address] Dr. Edward Ray %0.4 %Normal0.0-0.5The [facility] SystemComment on above: Performed By: #### HIV12 #### [facility] [address] [place] [address] Dr. Edward Velásquez #3.1 103/ulNormal1.2-3.8The [facility] SystemComment on above:Performed By: #### HIV12 #### [facility] [address] [place] [address] Dr. Edward Alvarezhocytes/100 WBC (Bld)34.2 %Rligkn57.5-60.0The [facility] SystemComment on above:Performed By: #### HIV12 #### [facility] [address] [place] [address] Dr. Edward Antony DIFF REQNONormalThe [facility] Healthcare SystemComment on above: Performed By: #### HIV12 #### [facility] [address] [place] [address] Dr. Edward De Leon (RBC) [Entitic mass]30.3 ukDliswk64.7-34.0The [facility] SystemComment on above:Performed By: #### HIV12 #### [facility] [address] [place] [address] Dr. Edward June (RBC) [Mass/Vol]34.8 g/oNKmckzx69.9-35.2The [facility] on above:Performed By: #### HIV12 #### [facility] [address] [place] [address] Dr. Edward June (RBC) [Entitic vol]87.0 mFYmdemu11.0-99.0The [facility] SystemComment on above:Performed By: #### HIV12 #### [facility] [address] [place] [address] Dr. Edward Rosas #0.7 103/ulNormal0.3-0.8The [facility] SystemComment on above:Performed By: #### HIV12 #### [facility] [address] [place] [address] Dr. Edward Ignacioocytes/100 WBC (Bld)7.5 %Normal1.7-12.0The [facility] Comment on above:Performed By: #### HIV12 #### [facility] [address] [place] [address] Dr. Edward Guevara #5.0 103/ulNormal1.4-6.5The [facility] SystemComment on above:Performed By: #### HIV12 #### [facility] [address] [place] [address] Dr. Edward Moralesutrophils/100 WBC (Bld)56.2 %Yyjbqf39.0-75.0The [facility] SystemComment on above:Performed By: #### HIV12 #### [facility] [address] [place] [address] Dr. Edward Serranolet mean volume (Bld) [Entitic vol]9.8 fLNormal9.5-13.5The [facility] SystemComment on above:Performed By: #### HIV12 #### [facility] [address] [place] [address] Dr. Edward GillPLT238 103/hiFhclor276-761Qqk [facility] SystemComment on above: Performed By: #### HIV12 #### [facility] [address] [place] [address] Dr. Edward GillRBC3.47 106/ulCritically low4.20-5.40The [facility] SystemComment on above:Performed By: #### HIV12 #### [facility] [address] [place] [address] Dr. Edward GillWBC9.0 103/ulNormal4.0-11.0The [facility] SystemComment on above: Performed By: #### HIV12 #### [facility] [address] [place] [address] Dr. Edward GillFETAL SCREENon 04-17-6219RWPMT SCREENNegativeNoSelect Medical Specialty Hospital - Cleveland-FairhillComment on above:Performed By: #### FETSCRN #### [facility] [address] [place] [address] Dr. Edward GillDIRECT COOMBSon 29-28-8264XYSMNW COOMBSNegativermDiley Ridge Medical CenterComment on above:Performed By: #### DIRCMB #### [facility] [address] [place] [address] Dr. Edward GillPOINT OF CARE GLUCOSEon 18-30-9084Zkvbjwm [Mass/Vol]117 mg/dL Critically wetu65-027Xhk [facility] SystemComment on above:Performed By: #### POCGLUC ####[facility] [address] [address]Dr. Edward GillTYPE AND SCREENon 17-51-2907MCAI AND SCREENNegativeProtestant Deaconess HospitalComment on above:Performed By: #### TNS #### [facility] [address] [place] [address] Dr. Edward Engle AUTO DIFFon 08-42-9413PXOT #0.0 103/ulNormal0.0-0.1The [facility] SystemComment on above:Performed By: #### HIV12 #### [facility] [address] [place] [address] Dr. Edward GillBasophils/100 WBC (Bld)0.2 %Normal0.2-2.0The [facility] Comment on above:Performed By: #### HIV12 #### [facility] [address] [place] [address] Dr. Edward Traore #0.0 103/ulNormal0.0-0.7The [facility] SystemComment on above: Performed By: #### HIV12 #### [facility] [address] [place] [address] Dr. Edward Calhounosinophils/100 WBC (Bld)0.5 %Critically low0.9-7.0The [facility] SystemComment on above:Performed By: #### HIV12 #### [facility] [address] [place] [address] Dr. Edward Calhounrythrocyte distribution width (RBC) [Ratio]16.1 %Critically high 11.0-15.0The [facility] SystemComment on above:Performed By: #### HIV12 #### [facility] [address] [address] [address] Edward GillHematocrit (Bld) [Volume fraction]32.1 %Critically low36.0-48.0 The [facility] SystemComment on above:Performed By: #### HIV12 #### [facility] [address] [place] [address] Dr. Edward GillHemoglobin (Bld) [Mass/Vol]11.7 g/dLCritically low12.0-16.0The [facility] HospitalComment on above:Performed By: #### HIV12 #### [facility] [address] [place] [address] Dr. Edward Ray #0.04 10e3/ulCritically high0.00-0.03The [facility] Comment on above:Performed By: #### HIV12 #### [facility] [address] [place] [address] Dr. Edward Ray %0.5 %Normal0.0-0.5The [facility] SystemComment on above: Performed By: #### HIV12 #### [facility] [address] [place] [address] Dr. Edward Velásquez #2.4 103/ulNormal1.2-3.8The [facility] SystemComment on above:Performed By: #### HIV12 #### [facility] [address] [place] [address] Dr. Edward Alvarezhocytes/100 WBC (Bld)27.2 %Djokhw54.5-60.0The [facility] SystemComment on above:Performed By: #### HIV12 #### [facility] [address] [place] [address] Dr. Edward SimmonsUAL DIFF REQNONormalThe [facility] SystemComment on above: Performed By: #### HIV12 #### [facility] [address] [place] [address] Dr. Edward De Leon (RBC) [Entitic mass]30.0 cwKeaebl80.7-34.0The [facility] HospitalComment on above:Performed By: #### HIV12 #### [facility] [address] [place] [address] Dr. Edward JuneHC (RBC) [Mass/Vol]36.4 g/dLCritically high29.9-35.2The [facility] SystemComment on above:Performed By: #### HIV12 #### [facility] [address] [place] [address] Dr. Edward JuneV (RBC) [Entitic vol]82.3 jVIkkgof71.0-99.0The [facility] SystemComment on above:Performed By: #### HIV12 #### [facility] [address] [place] [address] Dr. Edward Rosas #0.7 103/ulNormal0.3-0.8The [facility] SystemComment on above:Performed By: #### HIV12 #### [facility] [address] [place] [address] Dr. Edward Ignacioocytes/100 WBC (Bld)7.7 %Normal1.7-12.0The [facility] Comment on above:Performed By: #### HIV12 #### [facility] [address] [place] [address] Dr. Edward Guevara #5.5 103/ulNormal1.4-6.5The [facility] SystemComment on above:Performed By: #### HIV12 #### [facility] [address] [place] [address] Dr. Edward Moralesutrophils/100 WBC (Bld)63.9 %Ldmdpt19.0-75.0The [facility] SystemComment on above:Performed By: #### HIV12 #### [facility] [address] [place] [address] Dr. Edward Serranolet mean volume (Bld) [Entitic vol]10.0 fLNormal9.5-13.5The [facility] SystemComment on above:Performed By: #### HIV12 #### [facility] [address] [place] [address] Dr. Edward GillPLT274 103/dfJvjugz818-024Jxx [facility] SystemComment on above: Performed By: #### HIV12 #### [facility] [address] [place] [address] Dr. Edward GillRBC3.90 106/ulCritically low4.20-5.40The [facility] SystemComment on above:Performed By: #### HIV12 #### [facility] [address] [place] [address] Dr. Edward GillWBC8.7 103/ulNormal4.0-11.0The [facility] SystemComment on above: Performed By: #### HIV12 #### [facility] [address] [place] [address] Dr. Edward GillCovid-19 PCR ([facility])on 25-62-1657UGBP-CoV-2 (COVID-19) RNA LELO+probe Ql (Unsp spec)Not detectedNormalNOT DETECTEDThe [facility] Comment on above:Result Comment: When diagnostic testing [...] for this test is supported by the [place] of Health and Human Service's declaration that [...] longer be used).Performed By: #### HIV12 #### [facility] [address] [place] [address] Dr. Edward GillDRUG SCREEN RAPID (URINE)on 95-26-1833CQEGmeozrjsRnqgnqMWURTOHE The [facility] Healthcare SystemComment on above:Performed By: #### DRUGRPD ####[facility] [address] [address]Dr. Yilan ChangBAR NegativeNormalNEGATIVESelect Medical Specialty Hospital [facility], IncComment on above:Performed By: #### DRUGRPD ####[facility] Y[address] [place], [place] [address]Dr. Yilan ChangBUPNegativeNormalNEGATIVESelect Medical [facility], IncComment on above:Performed By: #### DRUGRPD ####[facility] Cnmogbec[address] [place], [place] [address]Dr. Yilan ChangBZONegativeNormalNEGATIVESelect Medical [facility], IncComment on above:Performed By: #### DRUGRPD ####[facility] Ngbwalberj[address] [place], [place] [address]Dr. Edward ChangCOCNegative NormalNEGATIVESelect Medical Specialty [facility], IncComment on above:Performed By: #### DRUGRPD ####[facility] Ulfzpxukfy[address] [place], [place] [address]Dr. Edward GillCUT-OFFSSEE [facility] Community General HospitalComment on above:Result Comment: AMP (Amphetamine): 500ng/mL, BAR (Barbituates): 200 ng/mL, BZO (Benzodiazepines): 150 ng/mL, BUP (Buprenorphine): 10 ng/mL, INDIA (Cocaine): 150 ng/mL, mAMP (Methamphetamine): 500 ng/mL, MTD (Methadone): 200 ng/mL, OPI (Opiates): 100 ng/mL, OXY (Oxycodone): 100 ng/mL, PCP (Phencyclidine): 25 ng/mL, PPX (Propoxyphene): 300 ng/mL, THC (Cannabinoids): 50 ng/mL, TCA (Trycyclic Antidepressants): 300 ng/mLPerformed By: #### DRUGRPD ####[facility] Qxnvsfliuk[address] [place], [place] [address]Dr. Edward GillDRUG CUT HEADERDRUG CLASS TEST SYSTEM CUT-OFF CONCENTRATIONS ARE FOLLOWS:NormalSelect Medical Specialty Hospital [facility], IncComment on above:Performed By: #### DRUGRPD ####[facility] [address] [address]Dr. Edward GillmAMP NegativeNormalNEGATIVEWexner Medical Center HospitalComment on above:Performed By: #### DRUGRPD ####[facility] [address]jqqrdj[address] [place], [place] [address]Dr. Yilan ChangMTDNegativeNormalNEGATIVEWexner Medical Center HospitalComment on above:Performed By: #### DRUGRPD ####[facility] Pdsnsxnxsj[address] [place], [place] [address]Dr. Yilan ChangOPINegativeNormalNEGATIVEWexner Medical Center HospitalComment on above:Performed By: #### DRUGRPD ####[facility] Rwsmdyfjty[address] [place], [place] [address]Dr. Yilan ChangOXYNegative NormalNEGATIVEWexner Medical Center HospitalComment on above:Performed By: #### DRUGRPD ####[facility] Axyds[address]zs[address] [place], [place] [address]Dr. Yilan ChangPCPNegativeNormalNEGATIVEWexner Medical Center HospitalComment on above: Performed By: #### DRUGRPD ####[facility] Gyenzrevaj[address] [place], [place] [address]Dr. Yilan ChangPPXNegativeNormalNEGATIVESelect Medical Specialty [facility], IncComment on above:Performed By: #### DRUGRPD ####[facility] [address]ikcqkmf[address] [place], [place] [address]Dr. Yilan ChangTCANegative NormalNEGATIVEWexner Medical Center HospitalComment on above:Performed By: #### DRUGRPD ####[facility] Ous[address] [place], [place] [address]Dr. Yilan ChangTHCNegativeNormalNEGATIVEWexner Medical Center HospitalComment on above: Performed By: #### DRUGRPD ####[facility] R[address]oskqema[address] [place], [place] [address]Dr. Yihermelindo ChangUS PREG BIOPHY W NON STRESSon 12-93-6013ZS PREG BIOPHY W NON STRESSEXAMINATION: US PREG [...] Electronically authenticated by: HUMERA KIM Date: 2022-05-06 19:05[facility] HospitalUS PREG BIOPHY W NON STRESSon 38-60-7026EF PREG BIOPHY W NON STRESSEXAMINATION: US PREG [...] Electronically authenticated by: ANGIE GALDAMEZ Date: 2022-05-01 16:16[facility] HospitalGROUP B STREP CULTUREon 04-23-2022. agalactiae Ag Ql (Unsp spec)Isolate 1 Streptococcus agalactiae Heavy growth of ORGANISM 1 Streptococcus agalactiae ANTIBIOTIC M.I.C RX STATUS Ampicillin <=0.25 S F Cefotaxime <=0.12 S F Ceftriaxone <=0.12 S F Clindamycin <=0.25 R F Erythromycin >=8 R F Inducible Clindamycin Resistance POS F Levofloxacin =0.5 S F Linezolid <=2 S F Tetracycline >=16 R F Vancomycin =0.5 S FNSelect Medical OhioHealth Rehabilitation Hospital - DublinComment on above:Performed By: #### GBSCX ####[facility] [address] [place] [address]PkLazara Edward Sherwood PREG BIOPHY W NON STRESSon 09-90-6420UG PREG BIOPHY W NON STRESSEXAMINATION: US PREG [...] Electronically authenticated by: HUMERA KIM Date: 2022-04-17 17:08[facility] PREG GROWTHon 18-18-1794AH PREG GROWTHEXAMINATION: US PREG GROWTH HISTORY: Gestational [...] Electronically authenticated by: HUMERA KIM Date: 2022-04-17 16:49[facility] PREG BIOPHY W NON STRESSon 76-13-6418AL PREG BIOPHY W NON STRESSEXAMINATION: US PREG [...] Electronically authenticated by: HUMERA KIM Date: 2022-04-12 08:56[facility] HospitalGLUCOSE, BLOOD (POC)on 92-31-0770Orgezzo [Mass/Vol]106 mg/dL Jsbcsfxs83 - 99 mg/dLPremier Health Miami Valley Hospital PREG BIOPHY W NON STRESSon 84-75-7624OS PREG BIOPHY W NON STRESSEXAMINATION: US PREG [...] Electronically authenticated by: HUMERA KIM Date: 2022-04-01 16:08[facility] PREG BIOPHY W NON STRESSon 56-78-4321BL PREG BIOPHY W NON STRESSEXAMINATION: US PREG [...] Electronically authenticated by: HUMERA KIM Date: 2022-03-27 08:54[facility] PREG GROWTHon 57-11-0210HM PREG GROWTHEXAMINATION: US PREG GROWTH HISTORY: Maternal [...] Electronically authenticated by: HUMERA KIM Date: 2022-03-17 06:04[facility] 02-75-6689DGS4.586 uIU/mLNormal0.358-3.740The [facility] SystemComment on above:Performed By: #### HIV12 #### [facility] [address] [place] [address] Dr. Edward GillTYPE AND SCREENon 42-72-3868QYHA AND SCREENNegativeProtestant Deaconess HospitalComment on above:Performed By: #### TNS #### [facility] [address] [place] [address] Dr. Edward Emanuel ACOG PANEL 2: 30 to 65on 02-21-2022..NormalThe [facility] Healthcare SystemComment on above:Result Comment: Performed at: WBPerformed By: #### [id number] ####[facility] [address] [address]DrLazara Koenig Gdln ACOG Zxzyqnk54-03YkbmwbLscSelect Medical Specialty Hospital - Cleveland-FairhillComment on above:Performed By: #### [id number] ####[facility] [address] [address]DrLazara GillDIAGNOSIS:CommentProtestant Deaconess HospitalComment on above:Result Comment: NEGATIVE FOR INTRAEPITHELIAL LESION OR MALIGNANCY. Performed at: WBPerformed By: #### [id number] ####[facility] [address] [address]DrLazara GillHPV AptimaNegativeNormal NegativeSelect Medical Specialty Hospital - Board[facility], IncComment on above:Result Comment: This nucleic acid amplification test detects fourteen high-risk HPV types (16,18,31,33,35,39,45,51,52,56,58,59,66,68) without differentiation. Performed at: =GPerformed By: #### [id number] ####[facility] Dowxccnmjx[address] [place], [place] [address]Dr. Edward GillMethodology:CommentKindred Hospital Dayton on above:Result Comment: This liquid based ThinPrep(R) pap test was screened with the use of an image guided system. Performed at: WBPerformed By: #### [id number] ####[facility] Bmiduwlnjh[address] [place], [place] [address]Dr. Edward GillNote:CommentKindred Hospital Dayton on above:Result Comment: The Pap smear is a screening test designed to aid in the detection of premalignant and malignant conditions of the uterine cervix. It is not a diagnostic procedure and should not be used as the sole means of detecting cervical cancer. Both false-positive and false-negative reports do occur. . Performed at: WBPerformed By: #### [id number] ####[facility] Kwyfaivrcu[address] [place], [place] [address]Dr. Edward ChangPerformed by:CommentKindred Hospital Dayton on above:Result Comment: Zenaida Diop, Configuration Manager (ASCP) Performed at: WBPerformed By: #### [id number] ####[facility] N[address]plilpotu[address] [place], [place] [address]Dr. Edward GillSpecimen adequacy:Comment NormalCleveland Clinic Avon Hospital on above:Result Comment: Satisfactory for evaluation. No endocervical component is identified. Performed at: WBPerformed By: #### [id number] ####[facility] [address]nqjztax[address] [place], [place] [address]Dr. Edward GillCHLAMYDIA/GONOCOCCUS LELO (SWAB/URINE/PAPon 29-43-2794Czmcebyrv trachomatis, NAANegativeNormalNegativeCleveland Clinic Avon Hospital on above:Performed By: #### CT/NGNA ####[facility] [address] [address]Dr. Edward Gill Neisseria gonorrhoeae, NAANegativeNormalNegativeSelect Medical Specialty Hospital [facility], IncComment on above:Performed By: #### CT/NGNA ####[facility] [address] [address]Dr. Edward GillVAGINITIS/VAGINOSIS DNA PROBEon 75-98-4222Dtddhvj speciesNegativeNormalNegativeSelect Medical Specialty Hospital [facility], IncComment on above:Performed By: #### VAGINT ####[facility] [address] [address]Dr. Edward GillGardnerella vaginalisNegativeNormal NegativeSelect Medical Specialty Hospital - Board[facility], IncComment on above:Performed By: #### VAGINT ####[facility] [address]fhifupguw[address] [place], [place] [address]Dr. Edward GillTrichomonas vaginalisNegativeNormalNegativeSelect Medical Specialty Hospital [facility], Inc Comment on above:Performed By: #### VAGINT ####[facility] R[address]jqc[address] [place], [place] [address]Dr. Edward GillMAURICIOHon 91-52-3265FME2.536 uIU/mLNormal0.358-3.740Select [facility], IncComment on above:Performed By: #### TSH ####[facility] Fcapjvnydc[address] [place], [place] [address]Dr. Edward GillGLUCOSE - 1HRon 60-24-8500Akydmmk [Mass/Vol]160 mg/dLCritically high 74-106The [facility] SystemComment on above:Performed By: #### GLU1HR ####[facility] S[address]zpledlf[address] [place], [place] [address]Dr. Edward JairoTSHon 39-93-8490GWZ4.899 uIU/mLNormal0.358-3.740The [facility] Comment on above:Performed By: #### HIV12 #### [facility] [address] [place] [address] Dr. Edward Garcia, Maternalon 36-23-5742Clmagwlysc byUltrasoundNormalMerChino Valley Medical CenterComment on above:Performed By: #### AAFPM #### [facility] [address] [place] [address] Java Security Engineer: Pancho Cano MD [facility] [address] [place] [address] Java Security Engineer: Yosvany Arriaga NOTENoOhioHealth Berger HospitalComment on above:Result Comment: Results for Estimated Due Date: 05 13 22Performed By: #### AAFPM #### [facility] [address] [place] [address] Java Security Engineer: Pancho Cano MD [address] [phone] Java Security Engineer: Zhang Bledsoe MDHouse Of The Good Samaritan HistoryOhioHealth O'Bleness HospitalComment on above:Performed By: #### AAFPM #### [facility] [address] [place] [address] Java Security Engineer: Pancho Cano MD [address] [address] Java Security Engineer: Zhang Bledsoe MDGestat Age (exact)15 wks, 2 daysNoOhioHealth Berger HospitalComment on above:Performed By: #### AAFPM #### [facility] [address] [place] [address] Java Security Engineer: Pancho Cano MD [facility] [address] [place] [address] Java Security Engineer: Michelle Arriaga Re Matern DiabOhioHealth O'Bleness HospitalComment on above:Performed By: #### AAFPM #### [facility] [address] [place] [address] Java Security Engineer: Pancho Cano MD [facility] [address] [place] [address] Java Security Engineer: Zhang Bledsoe MDInterpretationScreen NegAultman HospitalComment on above:Result Comment: (NOTE) INTERPRETATION: SCREEN NEGATIVE for open spina bifida Neural Tube Defects (NTD) Negative Pre-Test Post-Test Cutoff Neural Tube Defects Risks 1:1030 1:2690 1:250 Comments: The risk of an open neural tube defect is less than the screening cut-off. This test was developed and its performance characteristics determined by [employer]. It has not been cleared or approved by the [place] Food and Drug Administration. This test was performed in a CLIA certified laboratory and is intended for clinical purposes.Performed By: #### AAFPM #### [facility] [address] [place] [address] Java Security Engineer: Pancho Cano MD [address] [phone] Java Security Engineer: Jaron Arriaga Age at Del36.6 yrAultman HospitalComment on above:Performed By: #### AAFPM #### [facility] [address] [place] [address] Java Security Engineer: Pancho Cano MD [address] [phone] Java Security Engineer: Osmar Arriagacoalinga state hospital RaceNonblackNoOhioHealth Berger HospitalComment on above:Performed By: #### AAFPM #### [facility] [address] [place] [address] Java Security Engineer: Pancho Cano MD [address] [address] Java Security Engineer: Osmar Arriagaternal Wqlver749.0 lbs.Aultman HospitalComment on above:Performed By: #### AAFPM #### [facility] [address] [address] Java Security Engineer: Pancho Cano MD [address] [address] Java Security Engineer: Ramírez Arriaga for AFP1.52Aultman HospitalComment on above:Performed By: #### AAFPM #### [facility] [address] [place] [address] Java Security Engineer: Pancho Cano MD [address] [address] Java Security Engineer: Zhang Bledsoe MDNumber of FetusesSingletonAultman HospitalComment on above:Performed By: #### AAFPM #### [facility] [address] [address] Java Security Engineer: Pancho Cano MD [address] [phone] Java Security Engineer: Smith Arriaga's AFP35 ng/mLNTrinity Health System West CampusComment on above:Performed By: #### AAFPM #### [facility] [address] [address] Java Security Engineer: Pancho Cano MD [address] [id number] Java Security Engineer: NIKITA ArriagaSalem Regional Medical Center Comment on above:Performed By: #### AAFPM #### [address] [address] Java Security Engineer: Pancho Cano MD [address] [address] Java Security Engineer: NIKITA Arriagamulticare valley hospitalZoPaulding County HospitalComment on above:Result Comment: (NOTE) Initial sample Performed by [facility]abil[facility], [address] [place] [address] [id number] [email or web address], Yayo Moncada MD, PHD, Lab. DirectorPerformed By: #### AAFPM #### [facility] [address] [place] [address] Java Security Engineer: Pancho Cano MD [facility] [address] [place] [address] Java Security Engineer: JIMENEZ Arriaga [facility] [phone] SmokingProMedica Fostoria Community HospitalComment on above:Performed By: #### AAFPM #### [facility] [address] [place] [address] Java Security Engineer: Pancho Cano MD [facility] [address] [place] [address] Java Security Engineer: SHIVA ArriagaMartin Memorial Hospital Comment on above:Performed By: #### AAFPM #### [facility] [address] [place] [address] Java Security Engineer: Pancho Cano MD [facility] [address] [place] [address] Java Security Engineer: SHIVA ArriagaMercy Health [facility] Comment on above:Performed By: #### AAFPM #### [facility] [address] [place] [address] Java Security Engineer: Pancho Cano MD [facility] [address] [place] [address] Java Security Engineer: Vangie Arriaga EggINFORMATION NOT PROVIDEDAultman HospitalComment on above:Performed By: #### AAFPM #### [facility] [address] [place] [address] Java Security Engineer: Pancho Cano MD [facility] [address] [place] [address] Java Security Engineer: Zhang Bledsoe MDEstimated Due [id number] HospitalComment on above:Performed By: #### AAFPM #### [facility] [address] [place] [address] Java Security Engineer: Pancho Cano MD [facility] [address] [place] [address] Java Security Engineer: Socrates Arriaga HistoryNegativeAultman HospitalComment on above:Performed By: #### AAFPM #### [facility] [address] [place] [address] Java Security Engineer: Pancho Cano MD [facility] [address] [place] [address] Java Security Engineer: Zhang Bledsoe MDIn [facility] FertalizatINFORMATION NOT PROVIDEDSt. Anthony'S HospitalComment on above:Performed By: #### AAFPM #### [address] [address] Java Security Engineer: Pancho Cano MD [address] [address] Java Security Engineer: Zhang Bledsoe [facility] [id number] HospitalComment on above:Performed By: #### AAFPM #### [address] [address] Java Security Engineer: Pancho Cano MD [address] [address] Java Security Engineer: Osmar Arriagaternal [id number] HospitalComment on above:Performed By: #### AAFPM #### [facility] [address] [place] [address] Java Security Engineer: Pancho Cano MD [facility] [address] [place] [address] Java Security Engineer: Osmar Arriagaternal Umypkm578DffnonNvpjnAultman HospitalComment on above:Performed By: #### AAFPM #### [facility] [address] [address] Java Security Engineer: Pancho Cano MD [facility] [address] [place] [address] Java Security Engineer: BAKARI Arriagaonochorionic TwinsParkview Health Bryan HospitalComment on above:Performed By: #### AAFPM #### [facility] [address] [place] [address] Java Security Engineer: Pancho Cano MD [facility] [address] [place] [address] Java Security Engineer: GLADYS Arriagaatiallyssa Weight UnitsLParkwood HospitalComment on above:Performed By: #### AAFPM #### [facility] [address] [address] Java Security Engineer: aPncho Cano MD [address] [address] Java Security Engineer: Darci Arriaga (Maternal)WHITEAultman HospitalComment on above:Performed By: #### AAFPM #### [address] [address] Java Security Engineer: Pancho Cano MD [facility] [address] [place] [address] Java Security Engineer: LUIS Arraigaepeat SpecimenINFORMATION NOT PROVIDEDSt. Anthony'S HospitalComment on above:Performed By: #### AAFPM #### [facility] [address] [place] [address] Java Security Engineer: Pancho Cano MD [facility] [address] [place] [address] Java Security Engineer: Zhang Bledsoe MDValproic/CarbamazepINFORMATION NOT PROVIDEDSt. Anthony'S HospitalComment on above:Performed By: #### AAFPM #### [facility] [address] [place] [address] Java Security Engineer: Pancho Cano MD [address] [address] Java Security Engineer: JIMENEZ Arriaga Single Marker Scrn, Maternal, Serumon [id number] Hospital Wyoming ValleyCarrier Study Non-ProMedicaon 25-09-2596DznBppeljFirst Hospital Wyoming Valley MISCELLANEOUS TESTINGon 61-92-0944Uhjo Out ReportFWD TO [employer] TRK 5848 9734 9819BON SECSHELBY MEMORIAL HOSPITALTest NameNATERA SKYLINE MEDICAL CENTERBON SECTUSCARAWAS HOSPITAL SECSHELBY MEMORIAL HOSPITALMiscellaneouson 41-77-6562Oitn Out ReportFWD TO [facility] TRK 5848 [id number] HospitalComment on above:Performed By: #### CMIS #### [facility] CenterHeatG[facility] [address] [place] [address] Java Security Engineer: Pancho Cano MDTest Riverview Health InstituteComment on above:Performed By: #### CMIS #### [facility] [employer] [address] [place] [address] Java Security Engineer: Pancho Cano MDHEP B SURFACE ANTIGEN SCREENon 08-24-3088WDrLq ScreenNegativeNormalNegativeThe [facility]c Healthcare SystemComment on above:Performed By: #### HIV12 #### [facility] [address] [place], [place] [address] Dr. Edward GillHEPATITIS C VIRUS AB W/ REFLEX QUANTon 23-06-9214LXH AB<0.1Normal 0.0-0.9The [facility]c Healthcare SystemComment on above:Performed By: #### HCVPCRR ####[facility] [address] [place], [place] [address]YtDr. Edward GillInterpretation:CommentNormalThChildren's Hospital of ColumbusComment on above: Result Comment: Negative Not infected with HCV, unless recent infection is suspected or other evidence exists to indicate HCV infection.Performed By: #### HCVPCRR ####[facility] [address] [place] [address]Dr. Edward GillHIV 1 AND 2 WITH REFLEXon 09-64-4385VQL Screen 4th Generation wRfx Non-ReactiveNormalNon ReactiveThe [facility] on above:Result Comment: HIV Negative HIV-1/HIV-2 antibodies and HIV-1 p24 antigen were NOT detected. There is no laboratory evidence of HIV infection.Performed By: #### HIV12 #### [facility] [address] [place] [address] Dr. Edward GillRPR QUANTon 40-49-3441Gllbt Plasma Reagin, QuantNon-Reactive NormalNonRea<1:1The [facility] on above:Result Comment: Please Note: This test does not meet current guidelines for screening and diagnosis of syphilis. This test is intended for following treatment response in patients being treated for syphilis infection. To screen for syphilis infection, a reflex cascade that includes both RPR and a treponema-specific assay should be utilized, such as Treponema pallidum (Syphilis) Screening [place] (537888) or Rapid Plasma Reagin (RPR) Test With Reflex to Quantitative RPR and Confirmatory Treponema pallidum Antibodies (797993).Performed By: #### RPRQ ####[facility] [address] [place], [place] [address]Dr. Edward GillRUBELLA AB IGG on 48-04-0189Hnupdkl Antibodies, IgG1.02 indexNormalImmune >0.99[facility] on above:Result Comment: Non-immune <0.90 Equivocal 0.90 - 0.99 Immune >0.99Performed By: #### RUBIGG ####[facility] Krk[address] [place], [place] [address]Dr. Edward GillCBC AUTO DIFFon 34-57-0569PKHK # 0.0 103/ulNormal0.0-0.1[facility] on above:Performed By: #### HIV12 #### [facility] [address] [place] [address] Dr. Yilan ChangBasophils/100 WBC (Bld)0.3 %Normal0.2-2.0The [facility] Comment on above:Performed By: #### HIV12 #### [facility] [address] [place] [address] Dr. Edward Traore #0.1 103/ulNormal0.0-0.7The [facility] Healthcare SystemComment on above: Performed By: #### HIV12 #### [facility] [address] [place] [address] Dr. Edward Calhounosinophils/100 WBC (Bld)0.6 %Critically low0.9-7.0The [facility] Healthcare SystemComment on above:Performed By: #### HIV12 #### [facility] [address] [place] [address] Dr. Edward Calhounrythrocyte distribution width (RBC) [Ratio]14.1 %Ngbboz48.0-15.0 The [facility] Healthcare SystemComment on above:Performed By: #### HIV12 #### [facility] [address] [place] [address] Dr. Edward GillHematocrit (Bld) [Volume fraction]36.2 %Hbztmz40.0-48.0The [facility] Healthcare SystemComment on above:Performed By: #### HIV12 #### [facility] [address] [place] [address] Dr. Edward GillHemoglobin (Bld) [Mass/Vol]12.5 g/lXIyjwoh11.0-16.0The [facility] Healthcare SystemComment on above:Performed By: #### HIV12 #### [facility] [address] [place] [address] Dr. Edward Ray #0.05 10e3/ulCritically high0.00-0.03The [facility] Comment on above:Performed By: #### HIV12 #### [facility] [address] [place] [address] Dr. Edward Ray %0.4 %Normal0.0-0.5The [facility] Healthcare SystemComment on above: Performed By: #### HIV12 #### [facility] [address] [place] [address] Dr. Edward Velásquez #2.7 103/ulNormal1.2-3.8The [facility] Healthcare SystemComment on above:Performed By: #### HIV12 #### [facility] [address] [place] [address] Dr. Edward Ronmphocytes/100 WBC (Bld)23.2 %Tzbmak78.5-60.0The [facility] Healthcare SystemComment on above:Performed By: #### HIV12 #### [facility] [address] [place] [address] Dr. Edward SimmonsUAL DIFF REQNONormalThe [facility] Healthcare SystemComment on above: Performed By: #### HIV12 #### [facility] [address] [place] [address] Dr. Edward June (RBC) [Entitic mass]30.6 nzWeyxtm76.7-34.0The [facility] Healthcare SystemComment on above:Performed By: #### HIV12 #### [facility] [address] [place] [address] Dr. Edward June (RBC) [Mass/Vol]34.5 g/iOSspqqc65.9-35.2The [facility] Healthcare SystemComment on above:Performed By: #### HIV12 #### [facility] [address] [place] [address] Dr. Edward June (RBC) [Entitic vol]88.7 jMQhhcnp14.0-99.0The [facility] Healthcare SystemComment on above:Performed By: #### HIV12 #### [facility] [address] [place] [address] Dr. Edward Rosas #0.7 103/ulNormal0.3-0.8The [facility] Healthcare SystemComment on above:Performed By: #### HIV12 #### [facility] [address] [place] [address] Dr. Edward Ignacioocytes/100 WBC (Bld)5.8 %Normal1.7-12.0The [facility] Comment on above:Performed By: #### HIV12 #### [facility] [address] [address] [address] Edward Guevara #8.0 103/ulCritically high1.4-6.5The [facility] Comment on above:Performed By: #### HIV12 #### [facility] [address] [address] [address] Edward Moralesutrophils/100 WBC (Bld)69.7 %Tqlajw59.0-75.0The [facility] Healthcare SystemComment on above:Performed By: #### HIV12 #### [facility] [address] [place] [address] Dr. Edward GillPlatelet mean volume (Bld) [Entitic vol]9.3 fLCritically low 9.5-13.5The [facility] Healthcare SystemComment on above:Performed By: #### HIV12 #### [facility] [address] [place] [address] Dr. Edward GillPLT338 103/seHbvfsm888-602Kxa [facility] Healthcare SystemComment on above: Performed By: #### HIV12 #### [facility] [address] [place] [address] Dr. Edward GillRBC4.08 106/ulCritically low4.20-5.40The [facility] Healthcare SystemComment on above:Performed By: #### HIV12 #### [facility] [address] [place] [address] Dr. Edward GillWBC11.4 103/ulCritically high4.0-11.0The [facility] Healthcare SystemComment on above:Performed By: #### HIV12 #### [facility] [address] [place] [address] Dr. Edward GillCULTURE URINEon 76-27-6912IWHXFMC URINECulture Observations: LIGHT GROWTH OF MIXED GENITAL MARTHA. NO POTENTIAL PATHOGENS SEEN.NormalThe [facility] Healthcare SystemComment on above:Performed By: #### URCX #### [facility] [address] [place] [address] Dr. Edward GillGLYCOHEMOGLOBIN A1Con 80-28-8429RFI RECOMMENDATIONSEE BELOWNormal The [facility]cmc Healthcare SystemComment on above:Result Comment: ADA RECOMMENDED LIMIT 4.0 - 6.0 ADA THERAPEUTIC TARGET < 7.0 ACTION SUGGESTED > 7.0Performed By: #### A1C #### [facility] [address] [address] [address] Edward GillGlucose [Mass/Vol]117 mg/dLNoSelect Medical Specialty Hospital - Cleveland-FairhillComascension borgess allegan hospital on above:Performed By: #### A1C #### [facility] [address] [address] [address] Edward GillHbA1c (Bld) [Mass fraction]5.7 %Normal4.5-6.2[facility] on above:Performed By: #### A1C #### [facility] [address] [place] [address] Dr. Edward Nair BOX TEST PT SEND OUTon 05-62-2695BYFG TO REF LAB10/25/2021 NormalThe [facility] on above:Performed By: #### HIV12 #### [facility] [address] [place] [address] Dr. Edward GillTSHodru 14-39-3513FIF9.700 uIU/mLNormal0.358-3.740The [facility] on above:Performed By: #### TSH ####[facility] [address] [address]DrPonce GillTYPE AND SCREEN on 73-12-2982WHFZ AND SCREENNegativeNoSelect Medical Specialty Hospital - Cleveland-FairhillComascension borgess allegan hospital on above: Performed By: #### TNS ####[facility] [address] [address]Dr.Edward GillUS PREG TVon 56-89-8500QH PREG TV EXAMINATION: US PREG TV HISTORY: [...] Electronically authenticated by: HUMERA KIM Date: 2021-09-23 10:27[facility] HospitalPREG QUANT HCGon 31-47-1347QOS BKMXR9520 mIU/mLNormalSelect Medical Specialty Hospital - Boardman, IncComment on above:Performed By: #### HIV12 #### [facility] [address] [address] [address] Edward GillHCG [facility]tering Health PrebleComment on above: Result Comment: 5-50 0-1 WEEK 40-300 1-2 WEEKS 100-1,000 2-3 WEEKS 500-6,000 3-4 WEEKS 5,000-200,000 1-2 MONTHS 10,000-100,000 2-3 MONTHS 3,000-50,000 2ND TRIMESTER 1,000-50,000 3RD TRIMESTERPerformed By: #### HIV12 #### [facility] [address] [place] [address] Dr. Edward GillCHEMISTRYOrdered By: SYSTEM SYSTEM on 48-65-8517Nmukf gap [Moles/Vol]15 mmol/LNormal6 - 16 mEq/LFTMC RemisolCalcium [Mass/Vol]9.5 mg/dL Normal8.9 - 11.1 mg/dLFTMC RemisolChloride [Moles/Vol]102 mmol/UBrqulh975 - 111 mmol/LFTMC RemisolCO2 [Moles/Vol]22 mmol/PPpnuaz52 - 31 mmol/LFTMC Remisol Creatinine [Mass/Vol]0.9 mg/dLNormal0.5 - 1.3 mg/dLFTMC RemisolGFR/1.73 sq M.predicted among blacks MDRD (S/P/Bld) [Vol rate/Area]mL/min/1.73 m2Svmhbt >=59mL/min/1.73 m2FTMC Chem SGFR/1.73 sq M.predicted among non-blacks MDRD (S/P/Bld) [Vol rate/Area]mL/min/1.73 b6Bafyfz>=59mL/min/1.73 m2FT Chem S Glucose [Mass/Vol]85 mg/bFDnusik23 - 199 mg/dLFTMC RemisolPotassium [Moles/Vol] 3.9 mmol/LNormal3.5 - 5.3 mmol/LFTMC RemisolSodium [Moles/Vol]135 mmol/LNormal 135 - 145 mmol/LFTMC RemisolUrea nitrogen [Mass/Vol]6 mg/dLNormal5 - 21 mg/dL [facility] RemisolUrea nitrogen/Creatinine [Mass ratio]7 mg/mgLow10 - 20FTMC Remisol HEMATOLOGYOrdered By: Eureka King SYSTEM on 66-93-4943Vzsjreulj/100 WBC (Bld)0.5 % Normal0.0 - 2.0 %[facility] HemeAutoSSBasophils/Leukocytes Auto (Bld) [Pure # fraction]0.0 E9/LNormal0.0 - 0.2 E9/LFTMC HemeAutoSSEosinophils/100 WBC (Bld)0.6 %Normal0.0 - 8.0 %[facility] HemeAutoSSEosinophils/Leukocytes Auto (Bld) [Pure # fraction]0.1 E9/LNormal0.0 - 0.5 E9/LFTMC HemeAutoSSLymphocytes/100 WBC (Bld) 36.8 %Hmhzar01.0 - 50.0 %[facility] HemeAutoSSLymphocytes/Leukocytes Auto (Bld) [Pure # fraction]2.9 E9/LNormal1.0 - 4.0 E9/LFTMC HemeAutoSSMonocytes/100 WBC (Bld)8.7 %Normal4.0 - 14.0 %[facility] HemeAutoSSMonocytes/Leukocytes Auto (Bld) [Pure # fraction]0.7 E9/LNormal0.2 - 1.0 E9/LFTMC HemeAutoSSNeutrophils/100 WBC (Bld) 53.4 %Tjqamq21.0 - 75.0 %[facility] HemeAutoSSNeutrophils/Leukocytes Auto (Bld) [Pure # fraction]4.2 E9/LNormal2.0 - 7.5 E9/LFTMC HemeAutoSSHEMATOLOGYOrdered By: Isha Yates on 51-09-2882Pdnxvjdktim distribution width (RBC) [Ratio]14.6 %High10.9 - 14.2 %[facility] HemeAutoSSHematocrit (Bld) [Volume fraction]36.4 %Normal 34.0 - 46.0 %[facility] HemeAutoSSHemoglobin (Bld) [Mass/Vol]12.6 g/eTIbsxaj87.0 - 16.0 gm/dLFTMC HemeAutoSSMCH (RBC) [Entitic mass]29.9 eiDveqwu66.0 - 34.0 pgFTMC HemeAutoSSMCHC (RBC) [Mass/Vol]34.6 g/eOEphlks40.4 - 36.0 gm/dLFTMC HemeAutoSS MCV (RBC) [Entitic vol]86.6 yPVazqgx16.0 - 100.0 fLFTMC HemeAutoSSPlatelet mean volume (Bld) [Entitic vol]8.2 fLNormal6.4 - 10.8 fLFTMC HemeAutoSSPlatelets (Bld) [#/Vol]367.0 E9/VIhghrl059.0 - 500.0 E9/LFTMC HemeAutoSSRBC (Bld) [#/Vol] 4.2 E12/LLow4.3 - 5.9 E12/LFTMC HemeAutoSSWBC corrected for nucl RBC Auto (Bld) [#/Vol]7.9 E9/LNormal4.0 - 11.0 E9/LFTMC HemeAutoSSPREG QUANT HCGon 08-29-2021 HCG SKEFB056 mIU/mLNormalSelect Medical Specialty Hospital - Boardman, IncComment on above:Performed By: #### PREGQNT ####[facility] [address] [place], [place] [address]Dz. Yilan ChangHCG [facility] Health PrebleComment on above:Result Comment: 5-50 0-1 WEEK 40-300 1-2 WEEKS 100-1,000 2-3 WEEKS 500- 6,000 3-4 WEEKS 5,000-200,000 1-2 MONTHS 10,000-100,000 2-3 MONTHS 3,000-50,000 2ND TRIMESTER 1,000-50,000 3RD TRIMESTERPerformed By: #### PREGQNT ####[facility] [address] [id number]. Edward Cross QUANT HCGon 62-85-9299BRO QUANT99 mIU/mLNSelect Medical [facility]Health Rehabilitation Hospital - DublinComascension borgess allegan hospital on above:Performed By: #### HIV12 #### [facility] [address] [place] [address] Dr. Edward MORA [facility] HospitalComment on above: Result Comment: 5-50 0-1 WEEK 40-300 1-2 WEEKS 100-1,000 2-3 WEEKS 500-6,000 3-4 WEEKS 5,000-200,000 1-2 MONTHS 10,000-100,000 2-3 MONTHS 3,000-50,000 2ND TRIMESTER 1,000-50,000 3RD TRIMESTERPerformed By: #### HIV12 #### [facility] [address] [place] [address] Dr. Edward Cross QUANT HCGon 87-69-6714BPM QUANT37 mIU/mLNSelect Medical [facility]Health Rehabilitation Hospital - DublinComment on above:Performed By: #### PREGQNT ####[facility] [address] [address]Dr. Edward Lim [facility] PrebleComascension borg[facility] allegan hospital on above:Result Comment: 5-50 0-1 WEEK 40-300 1-2 WEEKS 100-1,000 2-3 WEEKS 500-6,000 3-4 WEEKS 5,000-200,000 1-2 MONTHS 10,000-100,000 2-3 MONTHS 3,000-50,000 2ND TRIMESTER 1,000-50,000 3RD TRIMESTERPerformed By: #### PREGQNT ####[facility] [address] [place], [place] [address]Dr. Edward GillCHEMISTRYOrdered By: SYSTEM SYSTEM on 92-68-8747Yfhpngh [Mass/Vol]4.5 g/dLNormal3.3 - 5.0 gm/dLFTMC Remisol Albumin/Globulin [Mass ratio]1.2 {ratio}Normal1.1 - 2.2FTMC RemisolALP [Catalytic activity/Vol]53 [iU]/fMachqs20 - 98 Int._Unit/LFTMC RemisolALT No additional P-5'-P [Catalytic activity/Vol]24 [iU]/dNormal6 - 46 Int._Unit/LFTMC RemisolAnion gap [Moles/Vol]13 mmol/LNormal6 - 16 mEq/LFTMC RemisolAST [Catalytic activity/Vol]20 [iU]/dNormal5 - 43 Int._Unit/LFTMC RemisolBilirubin [Mass/Vol]0.6 mg/dLNormal0.0 - 1.1 mg/dLFTMC RemisolCalcium [Mass/Vol]9.4 mg/dL Normal8.9 - 11.1 mg/dLFTMC RemisolChloride [Moles/Vol]97 mmol/POwo369 - 111 mmol/LFTMC RemisolCO2 [Moles/Vol]24 mmol/AFdzhvw89 - 31 mmol/LFTMC Remisol Creatinine [Mass/Vol]0.8 mg/dLNormal0.5 - 1.3 mg/dLFTMC RemisolGFR/1.73 sq M.predicted among blacks MDRD (S/P/Bld) [Vol rate/Area]mL/min/1.73 w9Fqxiok >=59mL/min/1.73 m2FT Chem SGFR/1.73 sq M.predicted among non-blacks MDRD (S/P/Bld) [Vol rate/Area]mL/min/1.73 c3Fllijz>=59mL/min/1.73 m2[facility] Chem S Globulin (S) [Mass/Vol]3.7 g/dLNormal1.4 - 4.0 gm/dLFTMC RemisolGlucose [Mass/Vol]74 mg/wHKteitl85 - 199 mg/dLFTMC RemisolMagnesium [Mass/Vol]2.0 mg/dL Normal1.3 - 2.4 mg/dLFTMC RemisolPotassium [Moles/Vol]3.5 mmol/LNormal3.5 - 5.3 mmol/LFTMC RemisolProtein [Mass/Vol]8.2 g/dLHigh6.0 - 7.8 gm/dLFT Remisol Sodium [Moles/Vol]130 mmol/TZnj797 - 145 mmol/LFTMC RemisolTSH Qn4.56 m[IU]/L Normal0.34 - 5.60 mcIU/mLFTMC RemisolUrea nitrogen [Mass/Vol]7 mg/dLNormal5 - 21 mg/dLFTMC RemisolUrea nitrogen/Creatinine [Mass ratio]9 mg/mgLow10 - 20FTMC RemisolHEMATOLOGYOrdered By: Eureka King SYSTEM on 19-92-8896Ezdjdqwal/100 WBC (Bld) 0.3 %Normal0.0 - 2.0 %[facility] HemeAutoSSBasophils/Leukocytes Auto (Bld) [Pure # fraction]0.0 E9/LNormal0.0 - 0.2 E9/LFTMC HemeAutoSSEosinophils/100 WBC (Bld)0.5 %Normal0.0 - 8.0 %[facility] HemeAutoSSEosinophils/Leukocytes Auto (Bld) [Pure # fraction]0.0 E9/LNormal0.0 - 0.5 E9/LFTMC HemeAutoSSLymphocytes/100 WBC (Bld) 35.9 %Jbrilw99.0 - 50.0 %[facility] HemeAutoSSLymphocytes/Leukocytes Auto (Bld) [Pure # fraction]3.2 E9/LNormal1.0 - 4.0 E9/LFTMC HemeAutoSSMonocytes/100 WBC (Bld)8.8 %Normal4.0 - 14.0 %[facility] HemeAutoSSMonocytes/Leukocytes Auto (Bld) [Pure # fraction]0.8 E9/LNormal0.2 - 1.0 E9/LFTMC HemeAutoSSNeutrophils/100 WBC (Bld) 54.5 %Jmjzxv79.0 - 75.0 %[facility] HemeAutoSSNeutrophils/Leukocytes Auto (Bld) [Pure # fraction]4.8 E9/LNormal2.0 - 7.5 E9/LFTMC HemeAutoSSHEMATOLOGYOrdered By: Trena Castro on 86-62-0533Oqdquizehrx distribution width (RBC) [Ratio]14.1 % Cijkvv70.9 - 14.2 %[facility] HemeAutoSSHematocrit (Bld) [Volume fraction]38.5 %Normal 34.0 - 46.0 %[facility] HemeAutoSSHemoglobin (Bld) [Mass/Vol]13.1 g/lCSxkyof63.0 - 16.0 gm/dLFTMC HemeAutoSSMCH (RBC) [Entitic mass]29.4 phAgwiyn42.0 - 34.0 pgFTMC HemeAutoSSMCHC (RBC) [Mass/Vol]34.1 g/qOBxvusw31.4 - 36.0 gm/dLFTMC HemeAutoSS MCV (RBC) [Entitic vol]86.0 iKLiwyno92.0 - 100.0 fLFTMC HemeAutoSSPlatelet mean volume (Bld) [Entitic vol]8.3 fLNormal6.4 - 10.8 fLFTMC HemeAutoSSPlatelets (Bld) [#/Vol]334.0 E9/CXplshs668.0 - 500.0 E9/LFTMC HemeAutoSSRBC (Bld) [#/Vol] 4.5 E12/LNormal4.3 - 5.9 E12/LFTMC HemeAutoSSWBC corrected for nucl RBC Auto (Bld) [#/Vol]8.9 E9/LNormal4.0 - 11.0 E9/LFTMC HemeAutoSSOB/RESIDENT PROGRAM SPECIALIST - Office Visiton 66-92-2600RB/RESIDENT PROGRAM SPECIALIST - Office VisitChief ComplaintComplains of: heavy bleeding Declines Susie davis, ROSE History of Present IllnessSanna is a [...] including stroke 07/2017 PSH as above POB- 2008 [id number] 17week loss subchorionic h [id number] 39weeks bleeding at 5weeks for 2 weeks diet 6724-2000 calories exercise none 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 Review [...] History History of Oral Surgery Tooth Extraction [place] [facility] Family History No pertinent family history Family history of cerebrovascular accident (CVA) (V17.1) (Z82.3) Family history of diabetes mellitus (V18.0) (Z83.3) Family history of cerebrovascular accident (CVA) (V17.1) (Z82.3) Family history of cerebrovascular accident (CVA) (V17.1) (Z82.3) Allergies No Known Drug Allergies Recorded By: Susie Salomon; 11/08/2017 4:19:42 PM Current Meds Ciprofloxacin HCl - 500 MG Oral Tablet;Ther apy: 18Prb0320 to Recorded Dispense: 0 Days ; #: Sufficient Tablet; Refill: 0; BUBBA = N; Record; Last Updated By: Susie Salomon; 11/08/2017 4:19:42 PM Plavix 75 MG Oral Tablet;Therapy: 85Yem9979 to Recorded Dispense: 0 Days ; #: Sufficient Tablet; Refill: 0; BUBBA = N; Record; Last Updated By: Susie Salomon; 11/08/2017 4:19:42 PM Provera 10 MG Oral Tablet;Therapy: 72Lrd4214 to Recorded Dispense: 0 Days ; #: Sufficient Tablet; Refill: 0; BUBBA = N; Record; Last Updated By: Susie Salomon; 11/08/2017 4:19:42 PM Vitals Vital Signs Recorded: 70Jwt1493 04:91SPSntbaspj575Skdojieqd92Hxfcmq1 ft 6 dyYswkbe377 lb BMI Loijzhahdl90.57BSA Calculated1.4RKC86Fft8087Pgdq Scale6-7 Physical ExamConstitutional: Alert and in no acute distress. Well developed, well nourished. Head and Face: Head and face: Normal. Psychiatric: Alert and oriented x 3. Affect normal to patient baseline. Mood: Appropriate. Diagnoses/Problems Anemia (285.9) (D64.9) Asthma (493.90) (J45.909) Depression with anxiety (300.4) (F41.8) History of Oral Surgery Tooth Extraction [place] [facility] No pertinent family history : Mother [...] GIDeclines STI testing todayWeight gain, offered a gum worker consult and she declined. Encouraged exercise. Signatures Electronically signed by : RICHARD Ulrich; Nov 12 2017 8:46PM EST (Author)NormalUH TouchworksAntiphospholipid Abs IgG/IgMon 39-73-2178Orkurnkjdbgqadvf Ab-NgO480 GPLCritically high0-14[facility] CenterComment on above:Result Comment: INTERPRETIVE INFORMATION: High- Specificity Antiphospholipid Antibody,IgG14 GPL or less......Uoyeekye52 26 GPL.........Indeterminate Suggest repeat testing in 12 weeks27 GPL or greater. ..PositiveHigh-specificity antiphospholipid IgG and IgM antibodies are directedagainsta mixture of phosphatidylserine, phosphatidic acid, and beta- 2glycoprotein 1antigens. These antibodies are more specific than cardiolipin IgG andIgMantibodies in the diagnosis of antiphospholipid syndrome (APS). Antiphospholipid Ab-IgM6 MPLNormal0-14[facility] Medical CenterComment on above:Result Comment: INTERPRETIVE INFORMATION: High-Specificity Antiphospholipid Antibody,IgM14 MPL or less......Gcvobxqs21 37 MPL.........Indeterminate Suggest repeat testing in 12 weeks38 MPL or greater. ..PositiveHigh-specificity antiphospholipid IgG and IgM antibodies are directedagainsta mixture of phosphatidylserine, phosphatidic acid, and beta- 2glycoprotein 1antigens. These antibodies are more specific than cardiolipin IgG andIgMantibodies in the diagnosis of antiphospholipid syndrome (APS).Performed by [facility],[address] [place] [id number] szz.Nanameue, Zhang Bledsoe MD - Lab. DirectorPRESBYTERIAN [facility] Miscellaneous test 05-28-2017 Miscellaneous Test 1SAdventHealth ParkerComment on above: Result Comment: Test name Result [...] Additional information and recommendations for testingmay befound [email or web address].Performed by [facility],[address] [facility] [address] [place] [address] kvh.Nanameue,Zhang Bledsoe MD - Lab. DirectorCardiolipin Antibodies, IgA, IgG, IgMon 93-82-1156Qruypiuhgxw Ab IgA0 APLNormal0-11[facility] CenterComment on above:Result Comment: INTERPRETIVE INFORMATION: Cardiolipin Antibodies, IgA0-11 APL: Jmxiewyk59-21 APL: In yvkpzmjdjlk74-66 APL: Low to Moderately Qonvhcio55 APL or above: High PositivePerformed by [facility],[address] [facility] [place] [address] rwn.Nanameue, Zhang Bledsoe MD - Lab. DirectorCardiolipin Ab IgG 111 GPLCritically high0-14[facility] CenterComment on above:Result Comment: INTERPRETIVE INFORMATION: Anti-Cardiolipin IgG Ab0-14 GPL: Hkjmffke04- 19 GPL: Njvrzgxthqwee16-06 GPL: Low to Moderately Gngockpl80 GPL or above: High PositiveThe persistent presence [...] other criteria phospholipid antibody tests.Cardiolipin Ab IgM10 MPLNormal0-12[facility] CenterComment on above:Result Comment: INTERPRETIVE INFORMATION: Anti-Cardiolipin IgM0-12 MPL: Jdmyszpf35-27 MPL: Pvjxrnhuqvdzn21-54 MPL: Low to Moderately Bszyrhsk81 MPL or above: High PositiveThe persistent presence [...] and/orothercriteria phospholipid antibody tests.Jennifer-Simpson Virus by PCRon 39-02-9855Gczpthn Simpson Virus by PCRNot DetectedYuma District HospitalComment on above:Result Comment: NOT DETECTED - A negative result does not rule out thepresence of PCR inhibitors inthe patient specimen or assayspecific nucleic acid in concentrations below the level ofdetection bythe assay.INTERPRETIVE INFORMATION: Jennifer Simpson Virus by PCRTest developed and characteristics determined by [facility]. SeeCompliance Statement A: Nanameue/CSPerformed by [facility],[address] [place] [address] hhs.Nanameue, Zhang Bledsoe MD - Lab. DirectorEpstein Simpson Virus SourceCSFYuma District HospitalOligoclonal Band Profileon 51-50-4355Rqutpgn3982 mg/kTDoyuid2671-7568TcgdhSky Ridge Medical CenterAlbumin 5.2 ratioNormal0.0-9.0[facility] CenterAlbumin, CSF20 mg/dLNormal 0-35[facility] CenterCSF IgG Synthesis Rate<0.0Normal<=8.0[facility] CenterCSF Oligoclonal BandsNegativeNormalNegativeSky Ridge Medical CenterCSF Oligoclonal Bands Number0 BandsNormal0-1MNational Jewish HealthGlobulin1060 mg/nXYbulph328-9921AhqssSky Ridge Medical Center Comment on above:Result Comment: REFERENCE INTERVAL: Immunoglobulin GAccess complete set of age- and/or gender-specific reference intervalsforthis test in the [employer] [facility] Test Directory ([facility]).IgG Index0.45 ratioNormal 0.28-0.66[facility] Medical CenterImmunoglobulin G CSF2.5 mg/dLNormal0.0-6.0 [facility] Medical CenterINR Coag RelTime (Bld)0.12 {INR}Normal0.09-0.25 [facility] CenterInterpretationSee NoteNormalSky Ridge Medical CenterComment on above:Result Comment: Isoelectric focusing/immunofixation reveals no oligoclonal bands ineitherthe CSF orthe serum. This is considered to be a negative result foroligoclonal bands. Approximately 5 percentof patients with clinicallydefinitive multiple sclerosis will have a negative result.Performed by [facility],[address] [facility], [place] [address] xxe.Nanameue, Zhang Bledsoe MD - Lab.DirectorMyelin Basic Protein, CSFon 24-30-8261Rrhbsh Basic Protein1.82 ng/mLNormal0.00-5.50[facility] Medical CenterComment on above:Result Comment: INTERPRETIVE INFORMATION: Myelin Basic ProteinTest developed and characteristics determined by [facility]. SeeCompliance Statement D: Nan[place]/CSPerformed by [facility],[address] [facility], [place] [address] hug.Nanameue, Zhang Bledsoe MD - Lab. DirectorTXUP Miscellaneous test 1on 34-55-3467Csnrelh Prompt 52222OurtleMraccYuma District HospitalComment on above:Result Comment: Corrected result; [place] [id number] on 05/25/2017 at 13:14 by Cheryl/VEE REA Miscellaneous test 1on 01-53-5769Gzaywdc Cczaee01267UyoqyjFoohuYuma District HospitalComment on above:Result Comment: DS DNACSF Cell Counton 05-25-2017 CSF no diffsee belowYuma District HospitalComment on above:Result Comment: Differential not performed -Total Nucleated cellsCSF AppearanceClear [facility] District HospitalCSF ColorColorlessYuma District HospitalCSF Tube NumberTube 4Yuma District HospitalFluid Clot Evaluationsee belowYuma District HospitalComment on above:Result Comment: No Clots SeenTotal Nucleated Cells0 K/uLNormal0-8[facility] CenterTotal Red Blood Cells0 K/uLNoSCL Health Community Hospital - WestminsterCSF Glucose on 22-50-2779ILF Xfzhyjn52 mg/dEQbcaak84-40DdgvsSky Ridge Medical CenterCSF Proteinon 01-23-9833THY Dlhwzml40 mg/xDOtzjfx71-34CkuejSky Ridge Medical Center Creatine Kinaseon 98-45-3991Ukkraiwe kinase (CK)71 U/LNormal0-170Sky [facility] Medical CenterCulture, CSFon 29-33-3524Hltnddn, CSFORDER#: [id number] ORDERED BY: VERNA MONGE: CSF (Spinal Fluid) CSF COLLECTED: 05/25/17 13:25ANTIBIOTICS AT AMARILYS.: RECEIVED : 05/25/17 13:25Gram Stain Direct FINAL 05/25/17 15:30 No WBC's, No organisms seenCulture, CSF FINAL 05/28/17 09:04 No growth at 72 hours Yuma District HospitalFL LUMBAR PUNCTURE DIAGon 73-68-5664LR LUMBAR PUNCTURE DIAGFL LUMBAR PUNCTURE DIAG : [...] ROSCOPIC-GUIDED LUMBAR PUNCTURE.Interpreted by:NIKITA Mezaigned by:Humera Covarrubias MD05/25/inal resultNormalSky Ridge Medical Center Homocysteineon 85-86-6177Pfzvrspgnjjd1.1 umol/LNormal0.0-15.0[facility] Medical CenterPartial Thromboplastin Timeon 59-09-5000tILT62.7 fIyudny99.6-35.4 [facility] CenterComment on above:Result Comment: Heparin Therapeutic Range: 38.8 - 54.6 seconds.Prothrombin Timeon 67-46-2316QNT Coag RelTime (PPP)1.0 {INR}NormalSky Ridge Medical CenterComment on above:Result Comment: Recommended INR therapeutic ranges [...] secProthrombin time (PT) Coag time (PPP) 10.7 sNormal8.1-13.7[facility] Vital Signs Date TimeVital SignValuePerforming RnpqpddodQrgzucnk42-96-8222 09:26-0400Body mass index (BMI) [Ratio]33.98 kg/g0Eqgop Chegg DO Work Phone: Mr BananaNwuntnezvs11-56-2703 09:-0400Body zyhdix02.48 kgCorey Chegg DO Work Phone: [facility] CenterKuftnetxdp37-19-4093 09:26-0400Diastolic blood xtlwjeaf04 mm[Hg]Wilton Montez DO Work Phone: [facility] CenterTklxgiayui33-13-1510 09:26-0400Systolic blood ywprnxye017 mm[Hg]Wilton Montez DO Work Phone: [facility] CenterNmfdselpki27-76-2231 13:44-0400Body nplliy955.6 Kolton Callahan MD MPH Work Phone: 1(518)[address]10-20-2025 13:44-0400Body mass index (BMI) [Ratio]33.73 kg/o1VmbvcSam Callahan MD MPH Work Phone: [phone])[address]10-20-2025 13:44-0400Body hvedum26.8 kgSam Callahan MD MPH Work Phone: [phone])[address] [place], [place] 5255710-20-2025 13:44-0400Diastolic blood tuealfej34 mm[Hg]Sam Callahan MD MPH Work Phone: 1(426)[address] [place], [place] [address]5710-20-2025 13:44-0400Heart rate 79 /Héctor Callahan MD MPH Work Phone: [phone])[address]10-20-2025 13:44-0400 Respiratory rate18 /Héctor Callahan MD MPH Work Phone: 1(757)[address] [place], [place] [address]5710-20-2025 13:44-0400Systolic blood ydvxdfcj303 mm[Hg]Sam Callahan MD MPH Work Phone: 1(915)[address] [place], [place] 5255710-13-2025 10:45-0400Body mass index (BMI) [Ratio]34.12 kg/r3Xczit Montez DO Work Phone: [facility] CenterExkekofzki61-83-7732 10:45-0400Body sqsuwb78.89 kgCorey Montez DO Work Phone: [facility] CenterFxcoglksoc01-44-3743 10:45-0400Diastolic blood cofsrpwl60 mm[Hg]Wilton Montez DO Work Phone: [facility] CenterWwzwdhtyio52-02-8757 10:45-0400Systolic blood mm[Hg]Wilton Montez DO Work Phone: 1(576)765-[address] [place], [place] [address]Pynwuueyxn56-50-2178 09:30-0400Body mass index (BMI) [Ratio]34.14 kg/z2Qbkmt Montez DO Work Phone: 1(144)796-[address] [place], [place] [address]Scmonqimdu58-01-3067 09:30-0400Body .94 kgCorey Montez DO Work Phone: 1(173)335-[address] [place] [address]-22-2025 09:30-0400Diastolic blood wsjwnkba08 mm[Hg]Wilton Montez DO Work Phone: 1(183)955-[address] [place], [place] [address]Eoyqltphlq50-70-6953 09:30-0400Systolic blood adjlwkrh378 mm[Hg]Wilton Montez DO Work Phone: 1(823)699-[address] [place], [place] [address]Ogkjwdtyfj27-42-3888 15:14-0400Body mass index (BMI) [Ratio]33.73 kg/v5Dprej Montez DO Work Phone: 1(565)575-[address] [place], [place] [address]Vyhhufhugk55-64-5144 15:14-0400Body cpezkg34.8 kg Wilton Montez DO Work Phone: 1(690)435-[address] [place], [place] [address]Kkanhoismb72-19-5428 15:14-0400Diastolic blood szyttfpp03 mm[Hg]Wilton Montez DO Work Phone: 1(415)535-[address] [place], [place] [address]Uccriosvii56-04-7258 15:14-0400Systolic blood ehaopmto565 mm[Hg]Wilton Montez DO Work Phone: 1(111)940-[address] [place], [place] [address]Pdqvplmcuu59-15-6818 14:22-0400Body mass index (BMI) [Ratio]33.89 kg/c6SsqcteiyMukul Noyola MD Work Phone: [facility]09-04-2025 14:22-0400Body ofteze22.25 kgMukul Noyola MD Work Phone: [facility]09-04-2025 14:22-0400Diastolic blood gynmgtyf81 mm[Hg]Mukul Noyola MD Work Phone: [facility]09-04-2025 14:22-0400Systolic blood mjelwwah759 mm[Hg]Mukul Noyola MD Work Phone: [facility]08-26-2025 11:34-0400Body vthbeg346.7 cmKatherine Negrete APRN.PEN RULER OPERATOR Work Phone: [facility]08-26-2025 11:34-0400Body mass index (BMI) [Ratio]33.57 kg/u9DrrnkKatherine Negrete APRN.PEN RULER OPERATOR Work Phone: [facility]08-26-2025 11:34-0400Body temperature 97.59 [degF]Katherine Negrete APRN.PEN RULER OPERATOR Work Phone: [facility]08-26-2025 11:34-0400Body cbjebt06.4 kgKatherine Negrete APRN.PEN RULER OPERATOR Work Phone: [facility]08-26-2025 11:34-0400Diastolic blood ytlkooxv67 mm[Hg]Katherine Negrete APRN.PEN RULER OPERATOR Work Phone: [facility]08-26-2025 11:34-0400Heart rate80 /min Katherine Negrete APRN.PEN RULER OPERATOR Work Phone: [facility]08-26-2025 11:34-0400Respiratory rate 16 /minKatherine Negrete APRN.PEN RULER OPERATOR Work Phone: [facility]08-26-2025 11:34-6550TcD6% (BldA) [Mass fraction]98 %Katherine Negrete APRN.PEN RULER OPERATOR Work Phone: [facility]08-26-2025 11:34-0400Systolic blood lbsxejur286 mm[Hg]Katherine Negrete APRN.PEN RULER OPERATOR Work Phone: [facility]08-14-2025 09:28-0400Body mass index (BMI) [Ratio]33.41 kg/e2Lkniz Montez DO Work Phone: 1(593)198-[address] [place], [place] [address]Vpsdalrzxu26-83-3253 09:28-0400Body kviacz06.89 kgCorey Montez DO Work Phone: 1(541)978-[address] [place], [place] [address]Udfoqhlmzk03-18-6861 09:28-0400Diastolic blood mm[Hg]Wilton Montez DO Work Phone: 1(500)831-[address] [place], [place] [address]Eqqrzyipeb81-43-1403 09:28-0400Systolic blood ikbllvbb158 mm[Hg]Wilton Montez DO Work Phone: 1(583)226-[address] [place], [place] [address]Rrolakhwsh65-03-9173 10:53-0400Body mass index (BMI) [Ratio]33.57 kg/y1Ustjg Montez DO Work Phone: 1(434)061-[address] [place], [place] [address]Sxdevpctqv93-40-0006 10:53-0400Body jlifvy63.35 kgCorey Montez DO Work Phone: 1(023)908-[address] [place], [place] [address]Slzgjkhqyl60-62-8418 10:53-0400Diastolic blood popuqfdv37 mm[Hg]Wilton Montez DO Work Phone: 1(727)546-[address] [place], [place] [address]Qmzwbnjsqi53-22-7281 10:53-0400Systolic blood kzkolyix588 mm[Hg]Wilton Montez DO Work Phone: 1(808)805-[address] [place], [place] [address]Lblphdlctq43-88-7930 13:07-0400Body mass index (BMI) [Ratio]33.73 kg/r9JuqgxdLorena Enciso RN Work Phone: 1(242)302-[address] [place], [place] [address]507-23-2025 13:07-0400Body .8 kgLorena Enciso RN Work Phone: 1(269)590-[address] [place], [place] [address]7-03-2025 09:32-0400Body mass index (BMI) [Ratio]33.81 kg/y8Hwblp Montez DO Work Phone: 1(909)198-[address] [place], [place] [address]Jmjzbgxerz52-81-8603 09:32-0400Body ppyhju08.03 kgCorey Montez DO Work Phone: 1(455)054-[address] [place], [place] [address]Xdhmgzxknm72-33-8164 09:32-0400Diastolic blood wmotzybc35 mm[Hg]Wilton Montez DO Work Phone: [facility] CenterBuveyfzvdy81-36-2915 09:32-0400Systolic blood mm[Hg]Wilton Herrmann DO Work Phone: [facility] CenterLfrarxrljj28-73-9521 14:23-0400Body mass index (BMI) [Ratio]33.46 kg/f7SrvxvKatherine Negrete ROD PLACER.PEN RULER OPERATOR Work Phone: [facility]07-01-2025 14:23-0400Body temperature 97 [degF]Katherine Negrete ROD PLACER.PEN RULER OPERATOR Work Phone: [facility]07-01-2025 14:23-0400Body dgvypm29.1 kgKatherine Negrete APRN.PEN RULER OPERATOR Work Phone: [facility]07-01-2025 14:23-0400Diastolic blood mm[Hg]Katherine Negrete ROD PLACER.PEN RULER OPERATOR Work Phone: [facility]07-01-2025 14:23-0400Heart rate82 /min Katherine Negrete APRN.PEN RULER OPERATOR Work Phone: [facility]07-01-2025 14:23-0400Respiratory rate 16 /minKatherine Negrete APRN.PEN RULER OPERATOR Work Phone: [facility]07-01-2025 14:23-0977CiI0% (BldA) [Mass fraction]100 %Katherine Negrete APRN.PEN RULER OPERATOR Work Phone: [facility]07-01-2025 14:23-0400Systolic blood fwggoetn209 mm[Hg]Katherine Negrete ROD PLACER.PEN RULER OPERATOR Work Phone: [facility]06-05-2025 14:10-0400Body mass index (BMI) [Ratio]33.89 kg/m2NoMissouri Southern Healthcare06-05-2025 14:10-0400Body .25 kgN[facility]06-05-2025 14:10-0400Diastolic blood diaweazn89 mm[Hg][facility]06-05-2025 14:10-0400Systolic blood mm[Hg][facility]oms [facility] CenterFxkvprvaxz93-11-0616 12:07-0400Body mass index (BMI) [Ratio]34.44 kg/i7Uvgfi Montez DO Work Phone: [facility] CenterVevtyqpkoi54-84-2064 12:07-0400Body heeuax53.8 kg Wilton Montez DO Work Phone: 1(811)040-[address] [place], [place] [address]Jmiyyoupml90-82-4555 12:07-0400Diastolic blood lewneghj34 mm[Hg]Wilton Montez DO Work Phone: 1(739)024-[address] [place], [place] [address]Jyezfnssyf66-81-6540 12:07-0400Systolic blood mm[Hg]Wilton Montez DO Work Phone: 1(247)375-[address] [place], [place] [address]Ulqlkofnjq09-05-1961 08:27-0500Blood Pressure LocationScott KAPLE [phone]-KcctuK[facility]03-03-2025 08:27-0500Diastolic blood swactygi48 mm[Hg]Penelope STYLESLE 593-1332Gngxdb-JhcspKettering Health [facility]03-03-2025 08:27-0500Heart rate77 /minScott STEPHANIBEN [phone]-PteczKettering Health Springfield03-03-2025 08:27-5237QyJ8% (BldA) [Mass fraction]99 %Penelope KAPLE [phone]-GqtjpKettering Health Springfield03-03-2025 08:27-0500Systolic blood mm[Hg]Penelope KAPLE 551-2599Rmydud-JzlfyKettering Health Springfield02-24-2025 15:21-0500Body mass index (BMI) [Ratio]34.93 kg/r6Vrffp Montez DO Work Phone: [facility] CenterJwjecmnkyv55-16-1186 15:21-0500Body synebv28.16 kgCorey Montez DO Work Phone: [facility] CenterCwxlnaocxg71-28-9603 15:21-0500Diastolic blood aodeinmv98 mm[Hg]Wilton Montez DO Work Phone: [facility] CenterVeagywbwdr14-64-5468 15:21-0500Systolic blood mm[Hg]Wilton Montez DO Work Phone: [facility] CenterKxfceptwfl27-69-7968 16:14-0500Blood Pressure LocationJAGUMARO BACA 276-7469Rpzpkf-FgpzzMem[facility] 06-19-2024 16:14-0500Diastolic blood cttillbx42 mm[Hg]JESSICA BACA [phone]-MrnzpMem[facility] 06-19-2024 16:14-0500Heart rate74 /minSTEFFANIEYN KEVEN 802-5289Ncpwss-IjmgdMemorial Health [facility] 06-19-2024 16:14-3184HgD3% (BldA) [Mass fraction]100 %JESSICA BACA [phone]-NkzgjMemorial Health [facility] 06-19-2024 16:14-0500Systolic blood bkckhnsi894 mm[Hg]JESSICA BACA [phone]-LqdkhMemorial Health [facility] 06-09-2024 13:55-0500Blood Pressure LocationScott KAPLE [phone]-GejsoKettering Health [facility]02-10-2025 13:55-0500Diastolic blood mm[Hg]Penelope KAPLE 232-9451Lzxuvq-LtvdgKettering Health Springfield02-10-2025 13:55-0500Heart rate78 /minScott KAPLE 730-1570Udbnrb-PnnlsKettering Health Springfield02-10-2025 13:55-5559RmG7% (BldA) [Mass fraction]99 %Penelope KAPLE 587-0905Ajacup-LfdffKettering Health Springfield02-10-2025 13:55-0500Systolic blood rmbmayxf407 mm[Hg]Penelope PRAVEEN [phone]-IjfuyWayne Healthcare Main Campus Lcon82-98-2105 11:43-0500Body mass index (BMI) [Ratio]34.51 kg/y3Vnemp Montez DO Work Phone: [facility] CenterLqblfiqfen99-34-0760 11:43-0500Body soisey37.98 kgCorey Montez DO Work Phone: [facility] CenterWflyhsqevt22-02-4358 11:43-0500Diastolic blood aekoncfi82 mm[Hg]Wilton Montez DO Work Phone: [facility] CenterAlqslgyhvh41-85-7691 11:43-0500Systolic blood ndglonce645 mm[Hg]Wilton Montez DO Work Phone: [facility] CenterGzukqhwwwa50-08-0618 13:07-0500Body .7 cmVramos Calix MD Work Phone: [facility]01-29-2025 13:07-0500Body mass index (BMI) [Ratio]35.02 kg/p2CxtlyKristofer Calix MD Work Phone: [facility]01-29-2025 13:07-0500Body temperature 97.59 [degF]Kristofer Calix MD Work Phone: [facility]01-29-2025 13:07-0500Body eqxrec08.5 kgKristofer Calix MD Work Phone: [facility]01-29-2025 13:07-0500Diastolic blood yzlozqtb65 mm[Hg]Kristofer Calix MD Work Phone: [facility]01-29-2025 13:07-0500Heart rate72 /min Kristofer Calix MD Work Phone: [facility]01-29-2025 13:07-0500Respiratory rate 16 /minKristofer Calix MD Work Phone: [facility]01-29-2025 13:07-6381JjW8% (BldA) [Mass fraction]99 %Kristofer Calix MD Work Phone: [facility]01-29-2025 13:07-0500Systolic blood vfbcznri231 mm[Hg]Kristofer Calix MD Work Phone: [facility]01-07-2025 14:40-0500Body mass index (BMI) [Ratio]35.41 kg/r9Nwses Montez DO Work Phone: [facility] CenterFjnbvycgiw39-44-9089 14:40-0500Body okimqm85.52 kgCorey Montez DO Work Phone: [facility] CenterKjhxjobsbh52-49-5999 14:40-0500Diastolic blood mm[Hg]Wilton Montez DO Work Phone: [facility] CenterEjhtxqkyju08-49-6691 14:40-0500Systolic blood ytoxjxwj385 mm[Hg]Wilton Montez DO Work Phone: [facility] CenterKzrmiscuug63-35-3298 10:57-0500Body mass index (BMI) [Ratio]35.85 kg/m2[facility]12-06-2024 10:57-0500Body cvxufi660.75 kgThree Rivers Healthcare10-08-2024 13:29-0400Blood Pressure LocationScott PRAVEEN 706-8605Duouat-VupcvKettering Health [facility]10-08-2024 13:29-0400Body mimmsmvxjdb24.06 [degF]Penelope CASAS 168-6010Fmdsce-GulexKettering Health Springfield10-08-2024 13:29-0400Diastolic blood rqmxkqyz28 mm[Hg]Penelope CASAS [phone]-HkswwKettering Health [facility]10-08-2024 13:29-0400Heart rate76 /minScott KAPLE 538-9727Dfvqow-BxxsuKettering Health Springfield10-08-2024 13:29-0400Respiratory rate16 /minScott KAPBEN [phone]-DkbrrAult[facility] Lelm52-99-6660 13:29-0054HeU2% (BldA) [Mass fraction]99 %Penelope CASAS 182-9507Dryfcv-KvfosKettering Health Springfield10-08-2024 13:29-0400Systolic blood lercxjqq777 mm[Hg]Penelope CASAS 293-1589Yuswfb-ObsbvA[facility] Primary Edoo29-74-5119 14:39-0400Blood Pressure LocationPreeti Gudimella [phone]-Ztsby[address] [place] [address] [facility] Vjjk28-05-7344 14:39-0400Body .06 [degF]Anni Gudimella 078-4907Ngrbro-Hefrn[address] [place] [address] [facility] Exax27-11-2826 14:39-0400Diastolic blood gwdyhbwo23 mm[Hg]Anni Gudimella 203-3002Ytunds-Jqqem[address] [place] [address] [employer] Twme52-02-0635 14:39-0400Heart rate98 /minPreeti Gudifaxton hospitalla [phone]-Hhvol[address] [place] [address] [facility] Bwpg59-74-5585 14:39-2621NeM9% (BldA) [Mass fraction]99 %Anni Gudimella 382-7953Jdhoay-DnsnkAultman Orrville Hospital Convenient Lbee41-98-6056 14:39-0400Systolic blood dnxnypeh386 mm[Hg]Anni Gudimella 429-6995Thycza-Jwzph[address] [place] [address] Convenient Lxqa51-16-4244 13:45-0400Body mlzaps070.7 Jerry Calix MD Work Phone: [facility]09-04-2024 13:45-0400Body mass index (BMI) [Ratio]36.52 kg/f6YuiamKristofer Calix MD Work Phone: [facility]09-04-2024 13:45-0400Body temperature 97.11 [degF]Kristofer Calix MD Work Phone: [facility]09-04-2024 13:45-0400Body .7 kgKristofer Calix MD Work Phone: [facility]09-04-2024 13:45-0400Diastolic blood uijdwglh77 mm[Hg]Kristofer Calix MD Work Phone: [facility]09-04-2024 13:45-0400Heart rate91 /min Kristofer Calix MD Work Phone: [facility]09-04-2024 13:45-0400Respiratory rate 16 /minKristofer Calix MD Work Phone: [facility]09-04-2024 13:45-2191NxR4% (BldA) [Mass fraction]100 %Kristofer Calix MD Work Phone: [facility]09-04-2024 13:45-0400Systolic blood wghcnylb093 mm[Hg]Kristofer Calix MD Work Phone: [facility]08-01-2024 13:40-0400Body temperature 97.7 [degF]Chair Cantwell Work Phone: [facility]08-01-2024 13:40-0400Diastolic blood xddivxbj09 mm[Hg]Chair Cantwell Work Phone: [facility]08-01-2024 13:40-0400Heart rate75 /min Chair Cantwell Work Phone: [facility]08-01-2024 13:40-0400Respiratory rate 16 /minChair Cantwell Work Phone: [facility]08-01-2024 13:40-3714WtD6% (BldA) [Mass fraction]99 %Chair Cantwell Work Phone: [facility]08-01-2024 13:40-0400Systolic blood mmgxpobm997 mm[Hg]Chair Cantwell Work Phone: [facility]07-25-2024 14:00-0400Body temperature 98.2 [degF]Chair Cantwell Work Phone: [place] [address]-25-2024 14:00-0400Diastolic blood tegaplcs04 mm[Hg]Chair Cantwell Work Phone: [facility]07-25-2024 14:00-0400Heart rate79 /min Chair Cantwell Work Phone: [place] [address]-25-2024 14:00-0400Respiratory rate 16 /minChair Stew Work Phone: [facility]07-25-2024 14:00-4300ZwU1% (BldA) [Mass fraction]99 %Chair Cantwell Work Phone: [facility]07-25-2024 14:00-0400Systolic blood kheynwen625 mm[Hg]Chair Cantwell Work Phone: [facility]07-18-2024 14:08-0400Diastolic blood dpyxailk86 mm[Hg]Chair Cantwell Work Phone: [facility]07-18-2024 14:08-0400Heart rate85 /min Chair Stew Work Phone: [facility]07-18-2024 14:08-0400Respiratory rate 18 /minChair Cantwell Work Phone: [place] [address]-18-2024 14:08-1309TgA1% (BldA) [Mass fraction]96 %Chair Cantwell Work Phone: [facility]07-18-2024 14:08-0400Systolic blood lzzmaqal628 mm[Hg]Chair Cantwell Work Phone: [facility]07-12-2024 14:44-0400Blood Pressure [facility] Jayant 103-2933Wkwxam-Qzifm[address] [place], [place] 6312607-12-2024 14:44-0400Body mrjncamfmbu45.34 [degF]Monica Saba 436-7759Iboeld-Ackif[address] [place], [place] 6312607-12-2024 14:44-0400Diastolic blood netqdcvv60 mm[Hg]Monica Saba 922-6447Qdrxip-Avinz[address] [place], [place] 6312607-12-2024 14:44-0400Heart rate85 /Jennifer Saba 025-4397Blvieb-Bpazi[address] [place], [place] 6312607-12-2024 14:44-0400Respiratory rate16 /Jennifer Saba 191-0083Kykcwn-Ulekg[address] [place], [place] 6312607-12-2024 14:44-9522OrD3% (BldA) [Mass fraction]99 %Monica Saba 061-1545Vlhfss-Gyuvo[address] [place], [place] 6312607-12-2024 14:44-0400Systolic blood fhaqupsw240 mm[Hg]Monica Saba 694-1652Hbqbjj-Drxar[address] [place], [place] 6312606-25-2024 16:48-0400Blood Pressure LocationLourdes Shirlene [phone]-Zrfnb[address] [place], [place] 6312606-25-2024 16:48-0400Body wmxqcvmszby76.52 [degF]Lourdes Shirlene 793-9899Udbhkh-Beyxv[address] [place], [place] 6312606-25-2024 16:48-0400Diastolic blood crbpailm05 mm[Hg]Lourdes Shirlene 405-6917Wkrfdj-ZgbddKettering Health Springfield06-25-2024 16:48-0400Heart rate86 /minLourdes Shirlene 402-8058Imjdhu-WtecbKettering Health Springfield06-25-2024 16:48-9651CnB4% (BldA) [Mass fraction]99 %Lourdesmariposa Garber 572-5197Fkuloy-LtkxnAultman [facility]rville Hospital Primary Ksrj02-88-6389 16:48-0400Systolic blood aaroflkb308 mm[Hg]Lourdes Garber 075-1603Gqqxyv-VozrvKettering Health Springfield05-31-2024 21:17-0400Body lvouyboqrol68.06 [degF]Benny Uribe [address] [place], [place] 4842705-31-2024 21:17-0400 Diastolic blood yedoyzji40 mm[Hg]Benny Uribe [address]05-31-2024 21:17-0400Heart rate67 /Xavier Uribe [address] [place], [place] 4842705-31-2024 21:17-0400Mean blood lfnzxcfa99 mm[Hg]Benny Uribe [address]05-31-2024 21:17-9438HzO7% (BldA) [Mass fraction]95 %Benny Uribe [facility]05-31-2024 21:17-0400 Systolic blood mm[Hg]Benny Uribe [facility]05-31-2024 20:00-0400 Diastolic blood mm[Hg]Benny Uribe [facility]05-31-2024 20:00-0400Heart rate78 /Xavier Uribe [address] [place], [place] 4842705-31-2024 20:00-0400Mean blood icxqweoo30 mm[Hg]Benny Uribe [address] [place], [place] 4842705-31-2024 20:00-0400 Respiratory rate20 /Xavier Uribe [facility]05-31-2024 20:00-0400 Systolic blood ozwsefsl166 mm[Hg]Benny Uribe [address] [place], [place] 4842705-31-2024 19:30-0400 Diastolic blood eqlyyhyi46 mm[Hg]Bennycourtney Uribe [address] [place], [place] 4842705-31-2024 19:30-0400Heart rate80 /minBenny Uribe [address] [place], [place] 4842705-31-2024 19:30-0400Mean blood jziavtso079 mm[Hg]Benny Uribe [address]05-31-2024 19:30-0400 Respiratory rate18 /minBneny Uribe [address]05-31-2024 19:30-7842VtG3% (BldA) [Mass fraction]100 %Benny Uribe [address]05-31-2024 19:30-0400 Systolic blood icyztfjx242 mm[Hg]Benny Uribe [address]05-31-2024 19:00-0400 Respiratory rate17 /minBenny Uribe [address] [place], [place] 4842705-31-2024 18:32-0400Body tkxtxjhthpe19.42 [degF]Benny Uribe [address]05-31-2024 18:32-0400Heart rate69 /minBenny Uribe [facility]05-31-2024 17:46-0400 Diastolic blood kcjazljt01 mm[Hg]JANET DUNHAM 594-2581Asliub-RmwguAultman Orrville Hospital Convenient Ajlp62-74-3507 17:46-0400Mean blood mm[Hg]JANET DUNHAM 034-6315Feghsk-UndiuOhiohealth Hardin Memorial Hospital05-31-2024 17:46-0400Systolic blood wjdmoult123 mm[Hg]JANET DUNHAM 311-6303Nnzlhe-BhilaOhiohealth Hardin Memorial Hospital05-31-2024 17:40-0400Blood Pressure LocationFRANCJONEL DUNHAM 542-8278Vpzvok-RwdofOhiohealth Hardin Memorial Hospital05-31-2024 17:40-0400Body spkxnhkapeq88.88 [degF]JANET DUNHAM 800-1989Mxmefw-BkjrzOhiohealth Hardin Memorial Hospital05-31-2024 17:40-0400Diastolic blood jvwrsqof70 mm[Hg]JANET DUNHAM 696-7190Cvdorp-EkkbvOhiohealth Hardin Memorial Hospital05-31-2024 17:40-0400Heart rate79 /minFRPRITESH DUNHAM 570-4112Flyaoy-MnphsOhiohealth Hardin Memorial Hospital05-31-2024 17:40-2979UfI6% (BldA) [Mass fraction]97 %[facility] 865-1026Hpdgkt-ElaakOhiohealth Hardin Memorial Hospital05-31-2024 17:40-0400Systolic blood uojgtfzt279 mm[Hg][facility] 991-0692Xzcpaw-QckpzOhiohealth Hardin Memorial Hospital04-05-2024 11:42-0400Blood Pressure LocationScott KAPLE 929-5447Ccaxce-KlnafKettering Health Springfield04-05-2024 11:42-0400Body mhqembxkeuy73.06 [degF]Penelope CASAS 024-5880Msctnm-MdtjpKettering Health Springfield04-05-2024 11:42-0400Diastolic blood oailybrp91 mm[Hg]Penelope KAPLE 837-4286Swxapb-TxlcfKettering Health Springfield04-05-2024 11:42-0400Heart rate72 /minScott KAPLE 821-9877Plomyy-TikptKettering Health Springfield04-05-2024 11:42-0400Respiratory rate16 /minScott KAPLE 275-5093Qkyiqw-SfvsjKettering Health Springfield04-05-2024 11:42-4323JfT6% (BldA) [Mass fraction]99 %Penelope CASAS 908-7444Ntpqjr-VqitiKettering Health Springfield04-05-2024 11:42-0400Systolic blood veaazdyk463 mm[Hg]Penelope CASAS 448-4209Vqzejs-UggujKettering Health Springfield02-16-2024 14:05-0500Body gvrymn457.7 cmVramos Calix MD Work Phone: [facility]02-16-2024 14:05-0500Body temperature 97.39 [degF]Kristofer Calix MD Work Phone: [facility]02-16-2024 14:05-0500Body mhwnaz476.1 kgKristofer Calix MD Work Phone: [facility]02-16-2024 14:05-0500Diastolic blood botifdqt67 mm[Hg]Kristofer Calix MD Work Phone: [facility]02-16-2024 14:05-0500Heart rate87 /min Kristofer Calix MD Work Phone: [facility]02-16-2024 14:05-0500Respiratory rate 16 /minKristofer Calix MD Work Phone: [facility]02-16-2024 14:05-4738AzK0% (BldA) [Mass fraction]95 %Kristofer Calix MD Work Phone: [facility]02-16-2024 14:05-0500Systolic blood ggowvqub815 mm[Hg]Kristofer Calix MD Work Phone: [facility]01-26-2024 11:11-0500Blood Pressure LocationScott PRAVEEN 583-9439Kxxptv-OebezKettering Health Springfield01-26-2024 11:11-0500Body irqfalcujzg96.7 [degF]Penelope CASAS 537-2134Eribqj-Hgfrv[address] [place], [place] 6312601-26-2024 11:11-0500Diastolic blood bodepxkl22 mm[Hg]Penelope CASAS 989-8634Ozgyqh-Ryfjz[address] [place], [place] 6312601-26-2024 11:11-0500Heart rate76 /minScott KAPLE 599-6880Lbpgck-Ofncl[address] [place], [place] 6312601-26-2024 11:11-0500Respiratory rate18 /minScott KAPLE [address] [place], [place] 6303301-26-2024 11:11-2254OwB3% (BldA) [Mass fraction]98 %Penelope CASAS [address] [place], [place] 6303301-26-2024 11:11-0500Systolic blood rwitkhzv273 mm[Hg]Penelope CASAS [address] [place], [place] 6303310-19-2023 09:41-0400Blood Pressure LocationScott KAPLE [address] [place], [place] 6303310-19-2023 09:41-0400Body jcbmzzrppcy75.42 [degF]Penelope CASAS [address] [place], [place] 6303310-19-2023 09:41-0400Diastolic blood bohycnuh73 mm[Hg]Penelope CASAS 852-6720Iakiro-Apdat[address] [place], [place] 6312610-19-2023 09:41-0400Heart rate80 /minScott KAPLE 724-7930Levipx-Ivknm[address] [place], [place] 6312610-19-2023 09:41-0400Respiratory rate18 /minScott KAPLE [address] [place], [place] 6303310-19-2023 09:41-9624UaN4% (BldA) [Mass fraction]98 %Penelope CASAS 772-6143Mqzeuu-Nmjsh[address] [place], [place] 6312610-19-2023 09:41-0400Systolic blood wckasafx656 mm[Hg]Penelope CASAS 037-0171Lacmtx-Aamyt[address] [place], [place] 6312606-23-2023 09:44-0400Blood Pressure LocationScott KAPLE 088-8261Ohkzun-Yqcnk[address] [place], [place] 6312606-23-2023 09:44-0400Body exxqvaktccf69.24 [degF]Penelope CASAS 408-0270Cezixg-Dakex[address] [place], [place] 6312606-23-2023 09:44-0400Diastolic blood jludogcn24 mm[Hg]Penelope CASAS 020-8477Dupqyf-Rifbt[address] [place], [place] 6312606-23-2023 09:44-0400Heart rate88 /minScott KAPLE 950-7312Pheeav-Eejns[address] [place], [place] 6312606-23-2023 09:44-0400Respiratory rate18 /minScott KAPLE 805-7808Otqltt-Kwime[address] [place], [place] 6312606-23-2023 09:44-2029VtL1% (BldA) [Mass fraction]98 %Penelope CASAS 047-6870Xuzvbc-Eienj[address] [place], [place] 6312606-23-2023 09:44-0400Systolic blood odwldmwz022 mm[Hg]Penelope CASAS 944-6942Zznmwx-YatosKettering Health Springfield03-30-2023 13:18-0400Body rcfeko946.7 Jerry Calix MD Work Phone: [facility]03-30-2023 13:18-0400Body temperature 97.5 [degF]Kristofer Calix MD Work Phone: [facility]03-30-2023 13:18-0400Body .78 kgKristofer Calix MD Work Phone: [facility]03-30-2023 13:18-0400Diastolic blood fboleuas13 mm[Hg]Kristofer Calix MD Work Phone: [facility]03-30-2023 13:18-0400Heart rate76 /min Kristofer Calix MD Work Phone: [facility]03-30-2023 13:18-0400Respiratory rate 16 /minKristofer Calix MD Work Phone: [facility]03-30-2023 13:18-6833FqH0% (BldA) [Mass fraction]97 %Kristofer Calix MD Work Phone: [facility]03-30-2023 13:18-0400Systolic blood ffgiyhds287 mm[Hg]Kristofer Calix MD Work Phone: [facility]12-22-2022 13:45-0500Body temperature 98.71 [degF]Chair Cantwell Work Phone: [facility]12-22-2022 13:45-0500Diastolic blood japkyven95 mm[Hg]Chair Stew Work Phone: [facility]12-22-2022 13:45-0500Heart rate85 /min Chair Cantwell Work Phone: [facility]12-22-2022 13:45-4223JvR5% (BldA) [Mass fraction]97 %Chair Cantwell Work Phone: [facility]12-22-2022 13:45-0500Systolic blood yxfjxzaf335 mm[Hg]Chair Stew Work Phone: [facility]12-07-2022 16:27-0500Diastolic blood ishiudov23 mm[Hg]Chair Stew Work Phone: [facility]12-07-2022 16:27-0500Heart rate84 /min Chair Cantwell Work Phone: [facility]12-07-2022 16:27-0500Respiratory rate 18 /minChair Cantwell Work Phone: [facility]12-07-2022 16:27-8808UoR6% (BldA) [Mass fraction]96 %Chair Stew Work Phone: [facility]12-07-2022 16:27-0500Systolic blood vfydappr778 mm[Hg]Chair Claudio Work Phone: [facility]11-28-2022 14:20-0500Body jnefil606.7 Jerry Calix MD Work Phone: [facility]11-28-2022 14:20-0500Body temperature 97.39 [degF]Kristofer Calix MD Work Phone: [facility]11-28-2022 14:20-0500Body yfacuj802.23 kgKristofer Calix MD Work Phone: [facility]11-28-2022 14:20-0500Diastolic blood puxhcdgn27 mm[Hg]Kristofer Calix MD Work Phone: [facility]11-28-2022 14:20-0500Heart juap529 /minKristofer Calix MD Work Phone: [facility]11-28-2022 14:20-0500Respiratory rate 16 /minKristofer Calix MD Work Phone: [facility]11-28-2022 14:20-2361KcA2% (BldA) [Mass fraction]97 %Kristofer Calix MD Work Phone: [facility]11-28-2022 14:20-0500Systolic blood klqrmqne335 mm[Hg]Kristofer Calix MD Work Phone: [facility]10-03-2022 11:46-0400Body ncpxju119.7 Jerry Calix MD Work Phone: [facility]10-03-2022 11:46-0400Body temperature 97.2 [degF]Kristofer Calix MD Work Phone: [facility]10-03-2022 11:46-0400Body wphhga183.42 kgKristofer Calix MD Work Phone: [facility]10-03-2022 11:46-0400Diastolic blood dzgikcbt20 mm[Hg]Kristofer Calix MD Work Phone: [facility]10-03-2022 11:46-0400Heart rate88 /min Kristofer Calix MD Work Phone: [facility]10-03-2022 11:46-0400Respiratory rate 16 /minKristofer Calix MD Work Phone: [facility]10-03-2022 11:46-9155JkJ2% (BldA) [Mass fraction]99 %Kristofer Calix MD Work Phone: [facility]10-03-2022 11:46-0400Systolic blood mm[Hg]Kristofer Calix MD Work Phone: [facility]04-22-2022 10:46-0400Blood Pressure LocationDERIK SIDE 235-3974Hqhulm-HthguMemorial Health [facility] 04-22-2022 10:46-0400Diastolic blood wmocsjgi39 mm[Hg] PERNELL SIDELL 978-3967Nxombz-XcqceMemorial Health [facility] 04-22-2022 10:46-0400Heart rate96 /minDERIK SIDELL 785-1451Jmwaje-TdcnoMemorial Health System [facility] 04-22-2022 10:46-9934ZqG5% (BldA) [Mass fraction]99 % PERNELL SIDELL 501-7290Rxdgry-HyyzhMemorial Health System [facility] 04-22-2022 10:46-0400Systolic blood qgyicxoj492 mm[Hg] PERNELL LONGORIA 666-2727Oxwtnc-XjgsyAultman Orrville Hospital [facility] Presho Encounters Encounter DateEncounter TypeCare ProviderFacilityStart: 02-23-2025 End: 60-37-2980Mybsrr flowsheetCorey Montez DO Work Phone: [facility] [place] [facility]YNStart: 02-23-2025 End: 87-91-8703Mtbiyo flowsheetCorey Montez DO Work Phone: [facility] [place] [facility]YNStart: 02-23-2025 End: 87-70-3804qndmzkgfjsYXUQG FAZIONot AvailableStart: 02-23-2025 End: 50-85-5577Qfpyxw outpatient visit 15 minutesCorey Montez DO Work Phone: [facility] [place] [facility]BGYNComment on above:Third trimester ([facility]); 30 weeks gestation of ([facility])Start: 02-20-2025 End: 31-39-8377Pfmseudwa Result EncounterCorey Montez DO Work Phone: [facility] External Department UnsolicitedStart: 02-20-2025 End: 58-02-9354Auqndfkhu Result EncounterCorey Montez DO Work Phone: [facility] External Department UnsolicitedStart: 02-16-2025 End: 81-80-7311Aogrzx consultation new/estab patient 80 Héctor Callahan MD MPH Work Phone: [facility] HospitalComment on above:Antiphospholipid syndrome (Primary Dx); Antiphospholipid syndrome complicating , antepartum; History of CVA (cerebrovascular accident); Coordination of complex care; 29 weeks gestation of pregnancyStart: 02-16-2025 End: 87-16-8085nagxxajkemSURMP REDDY AMBATIProMedica [facility] HospitalStart: 02-10-2025 End: 01-50-2643Ahdykiiwb encounterAnnita WELLS Work Phone: [phone]-Rhwsq Medicine at [facility] Start: 02-09-2025 End: 62-09-6382cwrvromkpgDTVTU FAZIONot AvailableStart: 02-09-2025 End: 08-07-5280Lkrbee outpatient visit 15 minutesCorey Montez DO Work Phone: [facility] OBGYNComment on above:Third trimester ([facility]-HCC); 28 weeks gestation of ([facility]-HCC); Anemia complicating childbirth ([facility]-H[facility]); Anticoagulant long-term use; Antiphospholipid antibody positive; Blood pressure elevated without history of HTN; Coagulation defect, unspecified ([facility])Start: 02-06-2025 End: 71-23-8972vrweabeujkIKHRUUZUJoshua EspinosaSamaritan Hospital HospitalStart: 02-06-2025 End: 50-93-0876Npdiqu outpatient visit 25 minutesMukul Noyola MD Work Phone: [phone]-Sulwy Medicine at [facility] Comment on above:27 weeks gestation of (Primary Dx); Multigravida of advanced maternal age in third trimester; Gestational diabetes mellitus (GDM) in second trimester controlled on oral hypoglycemic drug; Antiphospholipid syndrome complicating , antepartum; Antiphospholipid syndromeStart: 02-05-2025 End: 09-53-8266psiuxqxupcEOYLK [facility] PPGStart: 02-03-2025 End: 26-35-2700fuibenzjvgIdcff R ZIOFacility:FTMCStart: 01-19-2025 End: 53-47-1110tqumiajkbtYDFVN FAZIONot AvailableStart: 01-19-2025 End: 17-31-5608Dybico outpatient visit 15 minutesCorey Montez DO Work Phone: [facility] [place] OBGYNComment on above:Second trimester ([facility]-HCC); 25 weeks gestation of ([facility]-HCC); Gestational diabetes mellitus (GDM), antepartum, gestational diabetes method of control unspecified([facility]); Anticoagulant long-term use; Antiphospholipid antibody positive; Antiphospholipid antibody syndrome ([facility])Start: 52-23-0185ypopkoyjxkUngux R FAZIOFacility:FTMCStart: 01-13-2025 End: 39-53-4145Pjpigi outpatient visit 25 minutesCoevette Mays PA-C Work Phone: [phone]-Aomtx Medicine at [facility] Comment on above:Gestational diabetes mellitus (GDM) in second trimester controlled on oral hypoglycemic drug (Primary Dx); Antiphospholipid syndrome; Other specified hypothyroidism; Antiphospholipid syndrome complicating , antepartumStart: 01-13-2025 End: 73-10-3159zxbfbofkeiJTOPCPY Maxim MAYSDiley Ridge Medical Centertart: 01-09-2025 End: 85-24-7981Imszmqplj encounterMukul Noyola MD Work Phone: [phone]-Aqphd Medicine at [facility] Comment on above:Antiphospholipid syndrome (Primary Dx)Start: 01-07-2025 End: 22-51-5613Bwxjlvcje encounterBrooke Bi RNMaternal- Medicine at [facility] HospitalStart: 01-05-2025 End: 05-92-4633nkqizhcnloJLDBQ FAZIONot AvailableStart: 01-05-2025 End: 60-98-0413Vlaogb outpatient visit 15 minutesCorey Montez DO Work Phone: [facility] OBGYNComment on above:Second trimester ([facility]); 23 weeks gestation of ([facility]); Thyroid disease ; Gestational diabetes mellitus (GDM), antepartum, gestational diabetes method of control unspecified([facility]); Multigravida of advanced maternal age in second trimester ([facility]); H/O loss; Lightheaded; DizzinessStart: 01-05-2025 End: 92-48-4847Irlmri flowsheetCorey Montez DO Work Phone: [facility]BGYNStart: 01-05-2025 End: 95-30-3870Xjdlnf flowsheetCorey Montez DO Work Phone: [facility] OBGYNStart: 01-05-2025 End: 45-08-5564Uekjponptlpwo procedureJacque Bi RNMaternal- Medicine at [facility] HospitalComment on above:Multigravida of advanced maternal age in [...] Family history of autism; HyponatremiaStart: 01-01-2025 End: 98-76-2971Qgwiun consultation new/estab patient 80 Margaux Noyola MD Work Phone: [facility] Medicine ComptonComment on above: 22 weeks gestation of (Primary Dx); Antiphospholipid syndrome complicating , antepartum; History of stroke; History of loss in prior , currently in second trimester; Gestational diabetes mellitus (GDM) in second trimester controlled on oral hypoglycemic drug; Multigravida of advanced maternal age in second trimester; Hypothyroidism affecting in second trimester; Family history of autism; HyponatremiaStart: 01-01-2025 End: 22-18-4102Uvpbfl Simon Warren RNMatelos angeles metropolitan med center Medicine [place] Comment on above:Multigravida of advanced maternal age in second trimester (Primary Dx); Antiphospholipid syndrome complicating , antepartum; Gestational diabetes mellitus (GDM) in second trimester controlled on oral hypoglycemic drug; Insulin controlled gestational diabetes mellitus (GDM) in second trimester; AMA (advanced maternal age) multigravida 35+, second trimester; Hypothyroidism, unspecified typeStart: 12-26-2024 End: 94-67-6587DxdqqpDell Nooyla MD Work Phone: [facility] LaborComment on above: Gestational diabetes mellitus (GDM) in second trimester controlled on oral hypoglycemic drug (Primary Dx)Start: 12-23-2024 End: 54-67-1538Mfiuilb encounter Valentine Negrete APRN.CNP Work Phone: Hematology/OncologyStart: 12-23-2024 End: 23-44-7022tjjybqefmlMrbrlJuju Negrete APRN.CNP Work Phone: Hematology/OncologyComment on above:Antiphospholipid antibody positive (Primary Dx); Iron deficiency anemia secondary to blood loss (chronic); Vitamin D deficiency; Primary hypercoagulable state (HCC)Start: 12-17-2024 End: 25-96-6468tclmysujmqCUPWIHVO [address] Hospitaltart: 12-17-2024 End: 30-24-1528Lflcpl outpatient visit 25 minutesAlisa HUTTON Work Phone: [phone]-Jzqwy Medicine at [facility] Comment on above:Gestational diabetes mellitus (GDM) in second trimester controlled on oral hypoglycemic drug (Primary Dx)Start: 12-17-2024 End: 04-05-7552vzqsiqwtfhWTDLCZJJ [facility]16[facility]2024 End: 43-01-7163Zhbvovdyr Result EncounterCorey Montez DO Work Phone: noms External Department UnsolicitedStart: 12-16-2024 End: 30-74-9601Rtyyiccia Result EncounterCorey Montez DO Work Phone: [facility] External Department UnsolicitedStart: 12-12-2024 End: 38-48-3250Jcyikdfqr encounterAnnita WELLS Work Phone: [phone]-Qhokc Medicine at [facility] Start: 12-11-2024 End: 78-09-5305Uepcux flowsheetCorey Montez DO Work Phone: noms [place]iy[place] OBGYNStart: 12-11-2024 End: 91-60-2599Otyqdc flowsheetCorey Montez DO Work Phone: noms Piyush OBGYNStart: 12-11-2024 End: 07-55-3068Hbrpiajsn Result EncounterCorey Montez DO Work Phone: noms External Department UnsolicitedStart: 12-11-2024 End: 39-68-3569pzgueqniztPASYD FAZIONot AvailableStart: 12-11-2024 End: 52-87-1306Sfxmpb outpatient visit 15 minutesCorey Montez DO Work Phone: noms [place] OBGYNComment on above:19 weeks gestation of ([facility]); Second trimester ([facility]); Thyroid disease ; Multigravida of advanced maternal age in second trimester ([facility]); Gestational diabetes mellitus (GDM), antepartum, gestational diabetes method of control unspecified([facility])Start: 12-03-2024 End: 30-69-2651owvvugifelCUOSZQFL BROGANProUniversity [facility]als [facility] HospitalStart: 12-03-2024 End: 38-69-0447Hijxfd outpatient visit 25 minutesAlisa Saba APRN-PEN RULER OPERATOR Work Phone: [phone]-Fythc Medicine at [facility] Comment on above:Insulin controlled gestational diabetes mellitus (GDM) in second trimester (Primary Dx)Start: 12-03-2024 End: 35-36-2961Rfgyvxplv encounterAnni Brady CMAMaternal- Medicine at [facility]ertart: 11-20-2024 End: 40-37-1391Jviptb flowsheetCorey Montez DO Work Phone: noms BCP OBStart: 11-20-2024 End: 29-52-3940Tzgmba flowsheetCorey Montez DO Work Phone: noms BCP OBStart: 11-20-2024 End: 81-73-3071tsddrajwlsXJIAO FAZIONot AvailableStart: 11-20-2024 End: 60-27-0674Cbbazn outpatient visit 15 minutesCorey Montez DO Work Phone: noms Piyush OBGYNComment on above:Second trimester ([facility]); 16 weeks gestation of ([facility]); Screening, , for anatomic survey ([facility]); Vaginal discharge; Sinus headacheStart: 11-19-2024 End: 49-10-5679vqrbnrksbzGnxrts M Frey RN Work Phone: [phone]-Ekphb Medicine at [facility] Comment on above:Gestational diabetes mellitus (GDM), antepartum, gestational diabetes method of control unspecified(Primary Dx)Start: 11-04-2024 End: 48-25-4524Xumrm Syd Noyola MD Work Phone: [phone]-Mcxzp Medicine at [facility] Start: 10-30-2024 End: 41-90-7259Bjlgfz flowsheetCorey Montez DO Work Phone: noms BCP OBStart: 10-30-2024 End: 73-70-4052Ebivqq flowsheetCorey Montez DO Work Phone: noms BCP OBStart: 10-30-2024 End: 44-93-5581Etwslh outpatient visit 15 minutesCorey Montez DO Work Phone: noms BCP OBComment on above:Second trimester ([facility]); 13 weeks gestation of ([facility]); Thyroid disease ; Multigravida of advanced maternal age in second trimester ([facility]); Gestational diabetes mellitus (GDM), antepartum, gestational diabetes method of control unspecified([facility]); Elevated glucose tolerance testStart: 10-30-2024 End: 20-02-8386xkqhwafuzlFPURY FAZIONot AvailableStart: 10-29-2024 End: 99-55-6255ZdhubaJojmrbBunny Paz APRN.CNP Work Phone: Hematology/OncologyComment on above:Refill Request Start: 10-28-2024 End: 41-82-4727Bkhmyhv encounter procedureKatherine Negrete APRN.CNP Work Phone: Hematology/OncologyStart: 10-28-2024 End: 00-28-4625dnelxmwwvsGuigw Martinez APRN.CNP Work Phone: Hematology/OncologyComment on above:Primary hypercoagulable state (HCC) (Primary Dx); CVA, old, speech/language deficit; Cerebral hyponatremia; Personal history of TIA (transient ischemic attack)Start: 10-28-2024 End: 22-15-1674Pouzsohnv Gregoria Negrete APRN.CNP Work Phone: Cancer Appts MCComment on above:ResultsStart: 10-24-2024 End: 64-07-7295Sboqjneeg Gregoria Negrete APRN.CNP Work Phone: Hematology/OncologyComment on above:Lab OrdersStart: 10-20-2024 End: 58-85-3811OnadavOuyjk Abhyankar MD Work Phone: Hematology/OncologyComment on above:Refill Request Start: 10-13-2024 End: 55-89-3312Gxxrmh Monroe Khan RNMaternal- Medicine at [facility] HospitalComment on above:Gestational diabetes mellitus (GDM), antepartum, gestational diabetes method of control unspecified(Primary Dx)Start: 10-06-2024 End: 06-69-4736Rithzfkoi Result EncounterCorey Montez DO Work Phone: noms External Department UnsolicitedStart: 10-06-2024 End: 97-64-2867Audcplcjc Result EncounterCorey Montez DO Work Phone: noms External Department UnsolicitedStart: 10-02-2024 End: 73-34-2580yicaxiloabFFIQN FAZIONot AvailableStart: 10-02-2024 End: 50-08-0784Jgpjla outpatient visit 5 minutesNoms Bcp Ob Montez NurseNOMS BCP OBComment on above:GA: 0p3jSdyrb: 09-11-2024 End: 23-23-1553Fxacdqvpg Result EncounterCorey Montez DO Work Phone: noms External Department UnsolicitedStart: 09-11-2024 End: 51-49-6814Alllosyij Result EncounterCorey Montez DO Work Phone: NOMS External Department UnsolicitedStart: 09-09-2024 End: 89-66-4037gzsiexmpusMngup Cecily STYLESLEFacility:Val PCStart: 09-09-2024 End: 40-71-6015Zsvfgqt encounter procedureScott A KAPLE [phone]-RqwwoAultman [facility] Start: 09-07-2024 End: 51-17-2422jszuyhkoptYcsvm M. DempseyFacility:CC NorwalkStart: 09-02-2024 End: 97-57-0241Caehbnrby encounterNatmurphy Johnson RNHematology/OncologyComment on above:Patient UpdateStart: 08-26-2024 End: 96-64-9615Hvbergrck encounterKristofer Calix MD Work Phone: Hematology/OncologyComment on above:Lab OrdersStart: 08-23-2024 End: 75-16-6418qymyiaoxhfNlsug R FAZIOFacility:FTMCStart: 08-23-2024 End: 30-66-5630Ofdcbru encounter procedureCorey R MONTEZ [facility] Start: 07-25-2024 End: 66-47-5042HheqgdWzyxv Abhyankar MD Work Phone: Hematology/OncologyComment on above:Refill Request Start: 07-24-2024 End: 96-19-0849Wmxjmp flowsheetCorey Montez DO Work Phone: NOMS BCP OBStart: 07-24-2024 End: 81-45-1448Ncdbil flowsheetCorey Montez DO Work Phone: NOMS BCP OBStart: 07-24-2024 End: 05-89-2148ivpoplctywYBTAM FAZIONot AvailableStart: 07-24-2024 End: 61-65-7257Urhlit outpatient visit 15 minutesCorey Montez DO Work Phone: NOMS BCP OBComment on above:Irregular menstrual cycle Start: 07-09-2024 End: 67-45-2700owjwzrlyowCexbrmy A VisciFacility:FTMCStart: 07-09-2024 End: 77-63-9644Ykfyhdi encounter procedureHussainkaterina [place] [facility] Start: 07-08-2024 End: 98-78-4826Ecu-admission assessmentHussainkaterina [place] [facility] Start: 07-07-2024 End: 49-24-8171dmftpjeykbMlfko A KAPLEFacility:[place] PCStart: 06-30-2024 End: 77-70-9246kqowgdddkfTukvg A KAPLEFacility:[place] PCStart: 06-30-2024 End: 85-81-5694Irapewm encounter procedureScomike CASAS [phone]-QimrwAultman Orrville [facility] Start: 06-23-2024 End: 41-01-3045Lntvrp outpatient visit 15 minutesCorey Montez DO Work Phone: noms BCP OBComment on above:Vaginal bleeding; Dizziness; Abnormal TSH; Vaginal discharge; Pelvic pain in femaleStart: 06-23-2024 End: 50-59-0883octipqecrjVXTCO FAZIONot AvailableStart: 06-23-2024 End: 27-05-6502Vjucsods Result EncounterCorey Montez DO Work Phone: noms External Department UnsolicitedStart: 06-23-2024 End: 39-15-8556Esauxnce Result EncounterCorey Montez DO Work Phone: noms External Department UnsolicitedStart: 06-19-2024 End: 39-75-4377meutpwqtzzXUWJUP R CIERSEZWSKIFacility:SABINA MilanStart: 06-19-2024 End: 94-96-4136Kxdxyye encounter procedureJAGUMARO BACA [phone]-PgoamAultman Orrville [facility] [place] Start: 06-12-2024 End: 93-77-3750ydtrrluafkCkbvn R SHYLAZIOFacility:FTMCStart: 06-12-2024 End: 74-98-2653Jygbunp encounter procedureCorey Spencer HERRMANN [facility] Start: 06-09-2024 End: 83-92-5356hbglreujtlCtsyv A KAPLEFacility:Val PCStart: 06-09-2024 End: 14-53-8188Yytjzps encounter procedureCorey Spencer HERRMANN [facility] Start: 06-06-2024 End: 11-77-3260imqvyzspkvGQXKBF A LEHMANNFacility:FT FM BellevueStart: 06-02-2024 End: 14-10-2214ukujnznxceILCNU FAZIONot AvailableStart: 06-02-2024 End: 54-63-3943Nfgcxx outpatient visit 15 minutesCorecarmen Herrmann DO Work Phone: NOMS BCP OBComment on above:Follow-up visit after miscarriage; Abnormal TSH; History of thyroid diseaseStart: 05-28-2024 End: 30-42-5705Ymnqnwlvh encounterKristofer Calix MD Work Phone: Cancer Appts MCStart: 05-28-2024 End: 85-33-9842Lrrsgs outpatient visit 25 minutesKristofer Calix MD Work Phone: Hematology/OncologyComment on above:Primary hypercoagulable state (HCC) (Primary Dx); CVA, old, speech/language deficit; Iron deficiency anemia secondary to blood loss (chronic); Vitamin D deficiency; Antiphospholipid antibody syndrome (HCC)Start: 05-28-2024 End: 84-34-6744kicwxsubdeQUGAG A KAPLEFacility:[facility] Hospitaltart: 59-30-1042erbjcpmokiMwtvh A KAPLEFacility:[place] PCStart: 05-14-2024 End: 20-14-3767Duvrsdcdt encounterNatmurphy Johnson RNHematology/OncologyComment on above:Patient UpdateStart: 05-10-2024 End: 87-37-3944Zpyticqhb Result EncounterCorey Montez DO Work Phone: noms External Department UnsolicitedStart: 05-10-2024 End: 71-00-9593Vdcygukab Result EncounterCorey Montez DO Work Phone: noms External Department UnsolicitedStart: 05-10-2024 End: 91-85-9308anpwxanbqeMaczc FaziOhio[facility] Work Phone: Start: 05-10-2024 End: 51-18-3038Vvjicvuj ReferredCorey Montez DO Work Phone: [facility]-LAB Path Spec [place] HospStart: 05-06-2024 End: 51-92-3727cmeoosbbhuAMKTZ FAZIONot AvailableStart: 05-06-2024 End: 63-10-2881Hqkcpw flowsheetCorey Montez DO Work Phone: noms BCP OBStart: 05-06-2024 End: 08-11-9013Axrrpx flowsheetCorey Montez DO Work Phone: noms BCP OBStart: 05-06-2024 End: 58-66-7788odviduvehjZCIUT FAZIONot AvailableStart: 05-06-2024 End: 22-16-0874Olsuzo outpatient visit 15 minutesCorey Montez DO Work Phone: noms BCP OBComment on above:14 weeks gestation of ; Second trimester ; Confirm viability with history of miscarriage, ultrasoundStart: 04-28-2024 End: 85-04-3311VstmccJoqvoSalvador Calix MD Work Phone: Hematology/OncologyComment on above:Refill Request Start: 04-12-2024 End: 26-79-1493Lvwpolesv Result EncounterCorey Montez DO Work Phone: noms External Department UnsolicitedStart: 04-12-2024 End: 73-15-1654Iuuhlstku Result EncounterCorey Montez DO Work Phone: noms External Department UnsolicitedStart: 04-05-2024 End: 59-03-4641Njvzdkcog Result EncounterCorey Montez DO Work Phone: noms External Department UnsolicitedStart: 04-05-2024 End: 59-76-1453Hjxamblny Result EncounterCorey Montez DO Work Phone: noms External Department UnsolicitedStart: 04-04-2024 End: 70-76-2231ruwujxakirCZYZB FAZIONot AvailableStart: 04-04-2024 End: 07-93-0851Hnkxkz outpatient visit 5 minutesNoms Bcp Ob Montez NurseNOMS BCP OBComment on above:GA: 1r0gNwiye: 03-01-2024 End: 56-80-5100hnwdcxkcfxLisrm R FAZIOFacility:FTMCStart: 03-01-2024 End: 27-26-8171Rhapghg encounter procedureCorey R MONTEZ [facility] Start: 02-27-2024 End: 23-86-9042vdnhiqeufjOycoh R FAZIOFacility:FTMCStart: 02-27-2024 End: 86-11-3218Nzchzxcfd encounterNatalimaxim Johnson RNHematology/OncologyComment on above:Patient QuestionStart: 02-25-2024 End: 22-89-2933wrczlrjfdkGaenq R FAZIOFacility:FTMCStart: 02-25-2024 End: 73-39-3446Nyfoluc encounter procedureCorey R MONTEZ [facility] Start: 02-23-2024 End: 66-13-9649sqiurhqohcVmgoq A KAPLEFacility:FTMCStart: 02-23-2024 End: 06-97-3039Hvkuaqb encounter procedureCorey Spencer HERRMANN [facility] Start: 02-05-2024 End: 66-44-7563bprnhryaqoQiybx A STEPHANILEFacility:Val PCStart: 02-05-2024 End: 77-15-8257Kdwusej encounter procedureScott A PRAVEEN [phone]-FyvbqAultman Orrville [facility] Start: 02-05-2024 End: 66-43-6462Rxrh adult monitoring check donePenelope CASAS [phone]-UoaqdAultman Orrville Hospital [facility] Start: 02-02-2024 End: 91-58-4892wagqlvrhacGshlmm GudimellaFacility:CC BrandonkStart: 02-02-2024 End: 65-82-1178Tbybfmk encounter procedurePreeti Gudimella [phone]-AqorkAultman Orrville [facility] Start: 53-40-4430gfnvthgyasSwbre A KAPLE Facility:Val PCStart: 01-24-2024 End: 84-31-4423QkqmwxQptjt Abhyankar MD Work Phone: Hematology/OncologyComment on above:Refill Request Start: 01-02-2024 End: 85-35-3527Lufgochzm encounterKristofer Calix MD Work Phone: Cancer Appts MCComment on above:ResultsStart: 01-02-2024 End: 41-17-8206Okkkxj outpatient visit 15 minutesKristofer Calix MD Work Phone: Hematology/OncologyComment on above:Iron deficiency anemia secondary to blood loss (chronic) (Primary Dx); Vitamin D deficiency; Malaise and fatigueStart: 12-17-2023 End: 05-26-3423Benxjucwc encounterRachael Johnson RNHematology/OncologyStart: 12-06-2023 End: 20-40-1153dgusgdmvohYugmsttja L ClarkFacility:FTMCStart: 12-06-2023 End: 23-33-7106Jzotfbu encounter procedureMonica Saba [facility] Start: 33-05-4265efuxagvvjvMyjav A KAPLE Facility:[place] PCStart: 11-29-2023 End: 24-75-3425krqjjsylxjYcmui Abhyankar MD Work Phone: Hematology/OncologyComment on above:Iron infusion side effects?Refill RequestIron deficiency anemia of (Primary Dx); Iron deficiency anemia secondary to blood loss (chronic)Start: 11-22-2023 End: 09-91-9441ipqwfpvifaJokcf 12 [employer] Work Phone: Hematology/OncologyComment on above:Iron deficiency anemia of (Primary Dx); Iron deficiency anemia secondary to blood loss (chronic)Start: 11-15-2023 Telephone encounterFinancial Navigator Delgado Work Phone: Hematology/OncologyStart: 11-15-2023 End: 80-27-1922xxmlhswuoiZadvn [address] [place] Work Phone: Hematology/OncologyComment on above:Iron deficiency anemia of (Primary Dx); Iron deficiency anemia secondary to blood loss (chronic)Start: 11-09-2023 End: 92-14-4868Riuomsd encounter Contreras Saba [phone]-AssjzAultman Orrville Hospital [facility] Start: 11-09-2023 End: 05-41-9509Klszly WorkTamiko FLYNNWHematology/OncologyStart: 11-05-2023 Telephone encounterKristofer Calix MD Work Phone: Cancer Appts MCComment on above:AppointmentStart: 10-23-2023 End: 95-44-1631hgpaheaxzmYakjxrz Grace MisslerFacility:Val PCStart: 10-23-2023 End: 62-85-5357Tilwcyu encounter procedureSteffaniemelvin Garber [phone]-WducmAultman Orrville [facility] Start: 09-28-2023 End: 81-27-0367Kptatjngb department patient Marta Uribe [facility] Start: 09-28-2023 End: 04-24-0881yozwjwnrlpKF-C FRANCISCO ORTIZFacility:CC AvivawalkStart: 09-28-2023 End: 44-82-3380Owkrppf encounter procedureJANET DUNHAM [phone]-GzbubAultman Orrville Hospital [facility] Start: 63-61-1862Xeedaalyd encounterKristofer Calix MD Work Phone: Cancer Appts MCComment on above:Appointment RescheduledStart: 09-21-2023 End: 29-86-8484uqfiotqbejVzcoa Abhyankar MD Work Phone: Hematology/OncologyComment on above:Iron deficiency anemia secondary to blood loss (chronic) (Primary Dx)Start: 09-21-2023 End: 17-34-8639Fnkshiakkowl consultation with Song Calix MD Work Phone: Hematology/OncologyStart: 08-03-2023 End: 16-67-6102ueodztxnedFypzr A KAPLEFacility:Val PCStart: 08-03-2023 End: 16-35-4483Yybiwdv encounter procedureSelissa CASAS [phone]-UixmnAultman Orrville [facility] Start: 06-29-2023 End: 21-62-5368edwoqxjuwjHxzyg A KAPLEFacility:Val PCStart: 06-29-2023 End: 02-98-8128Wgrpegv encounter procedureSelissa CASAS [phone]-VjtzdAultman Orrville Hospital [facility] Start: 22-68-0414zbhvtrhgtsHxfkgvo Powell electrical assembler/OncologyComment on above:Lab results/recommendationsStart: 06-19-2023 E-mail encounter from Jose Carlos Johnson RNSANDUSKYStart: 06-15-2023 End: 39-01-1411Taudid outpatient visit 25 minutesKristofer Calix MD Work Phone: Hematology/OncologyComment on above:Vitamin D deficiency (Primary Dx); Hypercalcemia; Iron deficiency anemia secondary to blood loss (chronic)Start: 06-15-2023 Telephone encounterKristofer Calix MD Work Phone: Cancer Appts MCComment on above:ResultsStart: 46-11-9295Etzndnqtj encounterKristofer Calix MD Work Phone: Hematology/OncologyComment on above:Lab OrdersStart: 70-13-7406Zfhrqtrmp encounterKristofer Calix MD Work Phone: Cancer Appts MCComment on above:Future Appointment Start: 05-31-2023 End: 44-29-0627xysdmgetojEhwdg Abhyankar MD Work Phone: Hematology/OncologyComment on above:Primary hypercoagulable state (HCC) (Primary Dx); CVA, old, speech/language deficit; Hypercalcemia; Vitamin D deficiency; Iron deficiency anemia secondary to blood loss (chronic); Malaise and fatigueStart: 05-31-2023 End: 76-76-1612Cccbpqdtilwp consultation with Song Calix MD Work Phone: SANDUSKYStart: 05-25-2023 End: 62-36-1196mxnadolecjQcmnw A KAPLEFacility:Val PCStart: 05-25-2023 End: 24-84-9581Jqqnqoo encounter procedureScott A KAPLE [phone]-DarwbAultman Orrville Hospital [facility] Start: 05-01-2023 End: 39-96-1330avgttdyrksPnjph A KAPLEFacility:FTMCStart: 04-27-2023 End: 13-37-9417Dpu Drop offScott A KAPLE [facility] Start: 04-27-2023 End: 05-44-4663vwhjljtcqzDskis A KAPLEFacility:FTMCStart: 04-25-2023 End: 91-97-9248zpllnlaswgGikq L SchwabFacility:FT BellevueStart: 03-19-2023 End: 85-62-1021pameacywlhYshvp Abhyankar MD Work Phone: Hematology/OncologyComment on above:Primary hypercoagulable state (HCC) (Primary Dx); Iron deficiency anemia secondary to blood loss (chronic); Vitamin D deficiency; CVA, old, speech/language deficit; Antiphospholipid antibody syndrome (HCC)Start: 03-19-2023 End: 61-01-1653Folmacegtodp consultation with Song Calix MD Work Phone: SANDUSKYStart: 02-15-2023 End: 37-30-6612mxeipoikeoXwcqi A KAPLEFacility:Val PCStart: 02-15-2023 End: 68-37-3160Zqokdov encounter procedureScott A KAPLE [phone]-MxparAultman Orrville Hospital [facility] Start: 72-44-2933dckmittgzqCbici A KAPLE Facility:Val PCStart: 12-26-2022 End: 76-63-0224tttcmaspssXjoytgi [facility] HospitallerFacility:[place] PCStart: 12-26-2022 End: 45-48-0728Jcpxnqx encounter procedureLourdes Delaney Garber [phone]-JmbykAultman Orrville Hospital [facility] Start: 12-22-2022 End: 97-29-6304xujieadiacRjpgzVernell Calix MD Work Phone: Hematology/OncologyComment on above:Primary hypercoagulable state (HCC) (Primary Dx); Iron deficiency anemia of ; Iron deficiency anemia secondary to blood loss (chronic); Vitamin D deficiencyStart: 12-22-2022 End: 96-44-8592Wyfuyndiaqtr consultation with Song Calix MD Work Phone: SANDUSKYStart: 40-09-6177Zkiiirixw encounterKristofer Calix MD Work Phone: Cancer Appts MCComment on above:AppointmentStart: 10-20-2022 End: 03-34-6008Lxkbhvq encounter Coreen CASAS [phone]-EsgfaAultman Orrville Hospital [facility] Start: 09-28-2022 End: 15-21-6210nndueyfueqKilnwMaylin Calix MD Work Phone: Hematology/OncologyComment on above:Primary hypercoagulable state (HCC); CVA, old, speech/language deficit; Cerebral hyponatremiaStart: 09-28-2022 End: 55-64-5157Wrnoxjxwhfra consultation with Song Calix MD Work Phone: SANDUSKYStart: 09-26-2022 End: 81-51-1240Tugnnyc encounter Dionicio Calix [facility] Start: 66-58-4708Yugtunoql encounterValeri Yeung RN Hematology/OncologyComment on above:OrdersStart: 09-05-2022 End: 64-00-3975Lnxlsod encounter procedureCorey Spencer HERRMANN [facility] Start: 08-07-2022 End: 35-25-8366Kechyxq encounter procedureCorey Spencer HERRMANN [facility] Start: 07-27-2022 End: 76-17-7517Jsdngs outpatient visit 25 minutesKristofer Calix MD Work Phone: Hematology/OncologyComment on above:Primary hypercoagulable state (HCC) (Primary Dx); Iron deficiency anemia secondary to blood loss (chronic); CVA, old, speech/language deficitStart: 47-98-5405UcneavBcvwq Abhyankar MD Work Phone: Hematology/OncologyComment on above:Refill Request Start: 05-16-2022 End: 47-53-2134drzcvmmibyMM WILTON FAZIOFacility:K5Nkeoc: 05-10-2022 End: 12-89-3997kkmrkwgxxqNG WILTON FAZIOFacility:L2Xvqdw: 05-08-2022 End: 60-95-2631Difquhvuib and management of inpatientDR KALPANA THOMAS Facility:J6Zcthq: 05-05-2022 End: 21-27-0781ffbripqioaIK KALPANA THOMASFacility:E0Zzqpa: 05-01-2022 End: 15-37-7335dflxuchjrgVY WILTON FAZIOFacility:K9Kaguw: 04-28-2022 End: 79-54-5744ezzjhtwlprIE WILTON FAZIOFacility:P9Cmnuk: 04-24-2022 End: 41-24-0513eagsabctxiLH KALPANA THOMASFacility:A1Tlggy: 04-20-2022 End: 32-47-2785vfhherxkikHnjua 10 [address] Work Phone: Hematology/OncologyComment on above:Iron deficiency anemia secondary to blood loss (chronic) (Primary Dx); Iron deficiency anemia of pregnancyStart: 04-19-2022 End: 65-66-8142pemzfdnkewDD WILTON FAZIOFacility:L0Navnv: 04-14-2022 End: 00-30-6544klqubjdiknTF WILTON FAZIOFacility:V3Vwkua: 04-07-2022 End: 65-42-8812dgkcaqkcrsJP WILTON FAZIOFacility:L3Anjpu: 13-59-3315SrxyebRfrrm Abhyankar MD Work Phone: Hematology/OncologyComment on above:Refill Request Start: 04-05-2022 End: 76-03-5660fdyzlferxuVpqzt [place] Work Phone: Hematology/OncologyComment on above:Iron deficiency anemia secondary to blood loss (chronic) (Primary Dx); Iron deficiency anemia of pregnancyStart: 25-26-0816Cmfxleqaf encounterMeme Gonzalez Hematology/OncologyComment on above:Appointment; Patient Question; Medication Question; OrdersStart: 03-31-2022 End: 64-54-9155ofbooxyydzST WILTON FAZIOFacility:M9Hnwsf: 03-27-2022 End: 83-17-8563xlruwfdgwyTdzjiVernell Calix MD Work Phone: Hematology/OncologyComment on above:Iron deficiency anemia secondary to blood loss (chronic); Iron deficiency anemia of pregnancyStart: 03-27-2022 End: 40-89-8002Qmyxaxl encounter procedureKristofer Calix MD Work Phone: SANDUSKYStart: 16-55-3944Luvbblzmn encounterKristofer Calix MD Work Phone: Cancer Appts MCComment on above:ResultsStart: 03-24-2022 End: 92-72-2131cjlzanbjlqPR WILTON FAZIOFacility:G8Syhlx: 03-16-2022 End: 86-88-4205xxkvamgawaMI WILTON FAZIOFacility:Q3Uvdnx: 02-24-2022 End: 58-43-3203ylqffbtbcsQA WILTON FAZIOFacility:V5Olivs: 02-14-2022 End: 69-94-2954bfthxvbamyJL WILTON FAZIOFacility:D7Hwtoe: 01-30-2022 End: 87-43-8427lsqijiaopeEfhdnVernell Calix MD Work Phone: Hematology/OncologyComment on above:Primary hypercoagulable state (HCC) (Primary Dx); CVA, old, speech/language deficit; Antiphospholipid antibody syndrome (HCC); Anemia, unspecified typeStart: 01-30-2022 End: 32-03-3266Mkoixjk encounter procedureKristofer Calix MD Work Phone: SANDUSKYStart: 01-24-2022 End: 74-42-8331bppttfcxaqOY WILTON FAZIOFacility:J1Yqtfg: 01-24-2022 End: 93-03-2207ehlbkgyphmYU WILTON FAZIOFacility:Y0Chpun: 01-07-2022 End: 75-64-2948xwrfjwcxzqSN WILTON FAZIOFacility:F7Vublc: 86-84-9842YouylyRauaraAwilda Pope RN Work Phone: Hematology/OncologyComment on above:Refill Request Start: 12-28-2021 End: 27-46-0076cmugwkurkeZU WILTON FAZIOFacility:A2Lnkdj: 11-21-2021 End: 81-94-7669mqntpqfvokNGOUC [facility] Hospitaltart: 11-21-2021 End: 20-21-7652Vaobirufyh hospital visit by Sean Casas Work Phone: stVZ LaboratoryStart: 11-14-2021 End: 53-69-7813Pxkwtjv encounter procedureSLima [facility] Hospital Start: 62-79-3642oysjcumyuoTR WILTON FAZIOFacility:H1 Start: 10-25-2021 End: 90-99-0738mfoobayckgSH WILTON FAZIOFacility:A9Xbtue: 36-39-0900YzoukiHaygq Rustam RNHematology/OncologyComment on above:Refill RequestStart: 09-23-2021 End: 12-63-1553cpaaibddxwRT WILTON FAZIOFacility:K3Cofts: 47-08-1352Dbsbgmwkw encounterMeme Easton RNHematology/OncologyComment on above:Medication QuestionStart: 30-40-9609Pcppldptr encounterMeme Easton electrical assembler/OncologyComment on above:Patient QuestionStart: 09-01-2021 End: 78-93-4995zxkrskgvmnDO WILTON FAZIOFacility:M1Uihhe: 08-31-2021 End: 57-53-8762Wmxvfad encounter Coreen CASAS [facility] Start: 08-29-2021 End: 56-24-2138qrcactutmrLZ WILTON FAZIOFacility:D5Rhpll: 08-26-2021 End: 55-42-5476zokbckzrxdLN WILTON FAZIOFacility:B0Xgisl: 08-24-2021 End: 44-57-7731bldygsjvhaLF WILTON FAZIOFacility:Z8Usbcr: 01-07-8014Rmzyhungq encounterMeme Easton RNHematology/OncologyComment on above:Patient Question Start: 08-19-2021 End: 50-57-4528Myhvkxc encounter procedurePERNELL LONGORIA [facility] Start: 08-19-2021 End: 45-61-7129Kcf Drop offDERADRYAN LONGORIA [facility] Start: 08-19-2021 End: 24-50-0863Xufxqaf encounter procedurePERNELL Ramos SIDEMICHELLE [phone]-RsufxAultman [facility] Start: 26-60-0037Twpughbek encounterKristofer Calix MD Work Phone: Cancer Appts MCComment on above:Future Appointment Start: 08-01-2021 End: 74-81-0282Abtuicz evaluation of patient and reportMa Nurse Delgado Chantel Work Phone: Hematology/OncologyComment on above:Infective urethritis (Primary Dx)Start: 76-79-1970Qwtciwd encounter procedureHaseeb Tse TicoamirahFacility:[facility] BStart: 13-64-4728Epitutr encounter procedure ERIKA JIMENEZREEDFacility:9459Start: 05-25-2017 End: 35-62-9046TqvfzwxvnzYLSHD R [facility] Procedures DateProcedureProcedure DetailPerforming ClinicianStart: 93-09-5398Kjtyk dip stick/tablet rgnt non-auto w/o micrscpCorey Montez DO Work Phone: Start: 26-46-4852QX OB BPP W NON-STRESSCorey Montez DO Work Phone: Start: 77-06-8824WG OB GROWTHCorey Montez DO Work Phone: Start: 30-06-8495Kysly dip stick/tablet rgnt non-auto w/o micrscpCorey Montez DO Work Phone: Start: 57-41-9022Lrwie dip stick/tablet rgnt non-auto w/o micrscpCorey Montez DO Work Phone: Start: 86-00-5831Semdn dip stick/tablet rgnt non-auto w/o micrscpCorey Montez DO Work Phone: Start: 27-19-3752XZ OB CERVICAL LENGTHCorey Montez DO Work Phone: Start: 16-76-5187QMK UA (CLEAN/CATCH) EMERGENCY CARE TECH/MICRO IF IND.Wilton Montez DO Work Phone: Start: 61-81-1252GLQ THYROID STIM HORMONECorey Montez DO Work Phone: Start: 18-48-6820Enlmv dip stick/tablet rgnt non-auto w/o micrscpCorey Montez DO Work Phone: Start: 53-52-0863Xbvfb dip stick/tablet rgnt non-auto w/o micrscpCorey Montez DO Work Phone: Start: 31-94-6159Aihwuxi quantitative blood xcpt reagent stripStar Waggoner MD Work Phone: Start: 20-53-3418Jxdle dip stick/tablet rgnt non-auto w/o micrscpCorey Montez DO Work Phone: Start: 31-06-1020Twuny of thyroid stimulating hormone tshNot In System Ref ProvStart: 84-36-6706Dhvupsia screenMukul Noyola MD Work Phone: Start: 16-18-9304Lkyr scrn 1+ class nonchromoNot In System Ref ProvStart: 47-92-6174Pyikirkfpj glycosylated l0pFxmebnaa Provider ExternalStart: 26-64-2835AJK 1&2 AB/AG SCREEN (P24 AG)Not In System Ref Prov Start: 36-53-1328Edki ia hepatitis b surface antigenNot In System Ref ProvStart: 55-03-3078RDAM AND SCREENNot In System Ref ProvStart: 02-83-0597MRG CBC WITH AUTO DIFFCorey Montez DO Work Phone: Start: 40-33-5958Mwqdu dip stick/tablet rgnt non-auto w/o micrscpCorey Montez DO Work Phone: Start: 11-73-8254KU OB TRANSVAGINALCorey Montez DO Work Phone: Start: 08-30-7723Jgtys test visual color cmprsn methsCorey Montez DO Work Phone: Start: 54-18-8622ILGWIECFB VAGINITIS (HTRX)Wilton Montez DO Work Phone: Start: 12-85-0119Pdyjs dip stick/tablet rgnt non-auto w/o micrscpCorey Montez DO Work Phone: Start: 38-31-7962AR PELVISCorey Montez DO Work Phone: Start: 52-48-7030Ra uterus limited 1/> fetusesCorey Montez DO Work Phone: Start: 83-28-3206JZQ CBC WITH AUTO DIFFCorey Montez DO Work Phone: Start: 73-51-9428CWZ IMMUNOGLOBULIN GCorey Montez DO Work Phone: Start: 01-61-5165ZDB IMMUNOGLOBULIN MCorey Montez DO Work Phone: Start: 43-41-6583LDW MISCELLANEOUS TESTCorey Montez DO Work Phone: Start: 33-75-3159SSV APTTCorey Montez DO Work Phone: Start: 89-39-1454AOVDKA V LEIDEN MUTATIONCorey Montez DO Work Phone: Start: 24-38-2419SEHBR HOMOCYSTEINECorey Montez DO Work Phone: Start: 24-22-3060PPYO FIBRINOGENCorey Montez DO Work Phone: Start: 49-81-0261XAIBZPA C-FUNCTIONALCorey Montez DO Work Phone: Start: 33-56-1099JKKHBQT S-ANTIGENCorey Montez DO Work Phone: Start: 55-13-3483VZFOXR PROTHROMBIN TIME INR W/O COUM Wilton Montez DO Work Phone: Start: 28-93-7479FSS ANTITHROMBIN ACTIVITYCorey Montez DO Work Phone: Start: 40-26-0283Xxwmh dip stick/tablet rgnt non-auto w/o micrscpCorey Montez DO Work Phone: Start: 60-66-3841SXZ TESTCorey Montez [employer] Work Phone: Start: 83-04-2366PRB DRUG SCREEN RAPID (URINE)Wilton Herrmann [employer] Work Phone: Start: 35-92-4801FF OB TRANSVAGINALCorey Montez DO Work Phone: Start: 04-04-2024 End: 77-71-8823Xmpbz dip stick/tablet rgnt non-auto w/o micrscpCorey Montez DO Work Phone: Start: 17-05-1970Egdwaai refused by patient Immunization not carried out because of patient decisionNoms NurseStart: 60-06-4292Lvvelaqr of Products of Conception, External ApproachDR WILTON HERRMANN Start: 78-16-4861Vfxm bld gluc mntr dev cleared fda spec home useCcf Provider Start: 85-96-7370Hbgfhugmkhy observation [Identifier] in Cervix by Cyto stain Wilton Herrmann DO Work Phone: Start: 11-21-2021 End: 62-09-2505Oencw-fetoprotein serumScanning Provider ExternalStart: 11-21-2021 End: 78-76-0407BVKKJRU STUDY NON-PROMEDICAScanning Provider ExternalStart: 62-22-3012FVSUZKBSSWDSX TESTINGTod Lopez MD Work Phone: Start: 02-81-1719Ilrga depression screening assessment Nevin Chantel Work Phone: Start: 88-53-5514KSX CULTUREDHRUV PATELStart: 44-96-8705LLOETRXRR PATELStart: 50-87-9855HEU CELL COUNT WITH DIFFERENTIALDHRUV PATELStart: 52-72-3202HOPHUQH SIMPSON VIRUS PCRDHRUV PATELStart: 29-94-0500KGQCQSF, CSFDHRUV PATELStart: 41-74-8642SDIDDS BASIC PROTEIN, CSFDHRUV PATELStart: 31-95-0715KWBCXEQLSAA BANDINGDHRUV PATELStart: 08-32-2846PHSSTEG, CSFDHRUV MONGE Start: 68-67-3368ZDGVUEG-INRDHRUV PATELStart: 61-26-0869Isvahy puncture lumbar diagnosticDHRUV PATELStart: 03-41-3924CNKQVNINZZSNWOGJ ANTIBODY PANELDHRUV MONGE Start: 00-83-0898HLMMSCJKEVH AB IGG, IGM, IGADHRUV PATELStart: 84-80-6852OKKOBAB PATELStart: 91-10-9228FLGWNBNWDZCN, SERUMDHRUV PATELStart: 57-85-8863IYBI ARUP 1DHRUV PATELStart: 73-63-7040HXBRVJBQXIA PATELStart: 53-53-6063TUINFDANPGGP PATELStart: 96-47-8503Npdkms of breastDERIK SIDELL Start: 49-73-7817Mlllcncdpi of wisdom toothDERIK SIDELL endoscopy for ovarian cysts to drainDERIK SIDELL Vaccine refused by patientCOVID-19 vaccine dose declined( Confirmed )PERNELL SIDELL Plan of Treatment DateCare ActivityDetailAuthorStart: 19-38-3311UGZ Vaccine (1 - 1-dose 75+ series)RSV Vaccine (1 - 1-dose 75+ series)[facility]: 06-66-6241Fxnbw BMI ScreeningAdult BMI ScreeningOur Lady of Mercy [facility] SystemStart: 51-67-0585Nljksqd ScreeningTobacco ScreeningProPromedica Bay Park Hospitalca [facility] SystemStart: 24-15-2693Hwkmlvs ScreeningTobacco ScreeningProPromedica Bay Park Hospitalca [facility] SystemStart: 01-05-2026 End: 62-24-9919VI MFM with or without consultUS MFM with or without consult Imaging Routine Multigravida of advanced maternal age in second trimester Antiphospholipid syndrome complicating , antepartum Gestational diabetes mellitus (GDM) in second trimester controlled on oral hypoglycemic drug AMA (advanced maternal age) qjaamorwhbiw88+, second trimester Hypothyroidism, unspecified type History of stroke History of loss in prior , currently in second trimester Hypothyroidism affecting in second trimester Family history of autism Hyponatremia Expected: 01/05/2026 (Approximate), Expires: 01/05/2026[facility] Work Phone: comment on above:Expected: 01/05/2026 (Approximate), Expires: 01/05/2026Start: 20-86-2967Myxss BMI ScreeningAdult BMI Screening [facility]: 30-55-2123Igncwil ScreeningTobacco Screening [facility]art: 88-48-6895Cnuzi BMI ScreeningAdult BMI Screening [facility]: 03-17-2025 End: 59-60-6457Kecullkbzpqc consultation with lxqkygk2803/17/2025 8:30 AM EST Telemedicine [facility] Rheumatology, A Department of [address] [phone] Sam Callahan MD [address] [address] [facility] Rheumatology, A Department of [facility]: 03-10-2025 End: 09-01-7844Qxfsvou encounter pxsundffx69/11/2025 9:50 AM EST Routine [facility] Piyush ZELAYAN [address] [place], [phone] Wilton Herrmann DO [address] [place] [address] [facility] Piyush OBGYNStart: 03-10-2025 End: 71-71-9277Txsaqwpsczzx consultation with omxcech0003/10/2025 8:00 AM EST Telemedicine Maternal- Medicine at [facility] [address] [place] [phone] Sana Palma MD [address] [place] [address] [facility] HospitalStart: 03-02-2025 End: 72-13-3809Fxjwjy-up orjkszzps86/03/2025 11:30 AM EST Visit (SP) Office Hematology/Oncology [address] [place] [address] Katherine Negrete APRN.PEN RULER OPERATOR [address] [place] [address] 2 month follow upHematology/OncologyComment on above:2 month follow upStart: 03-02-2025 End: 90-85-4850Jrwfhbf encounter uzifzkrhp89/03/2025 11:15 AM EST Office Visit [facility] [address] [place] [address] labNortCorewell Health Pennock Hospital LaboratoryComment on above:labStart: 02-23-2025 End: 10-35-2700Stjwgvw encounter jluvhvfxr74/27/2025 9:00 AM EDT Routine [facility] Piyush OBGYN [address] [place], [phone] Wilton Herrmann DO [address] [place] [address] NOMJaylan [place] OBGYNStart: 02-18-2025 End: 00-48-6642QOY W Auto Differential panel - BloodCOMPLETE BLOOD COUNT AND DIFFERENTIAL Lab Routine 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) Vitamin D deficiency Primary hypercoagulable state (HCC) Expected: 02/18/2025, Expires: 05/20/2025leveland ClinicComment on above:Expected: 02/18/2025, Expires: 05/20/2025Start: 02-18-2025 End: 93-50-8759Wfuwuwsvbhjfq metabolic 2000 panel - Serum or PlasmaCOMPREHENSIVE METABOLIC PANEL Lab Routine Antiphospholipid antibody positive Iron deficiency anemiasecondary to blood loss (chronic) Vitamin D deficiency Primary hypercoagulable state (HCC) Expected: 02/18/2025, Expires: 05/20/2025leveland ClinicComment on above:Expected: 02/18/2025, Expires: 05/20/2025Start: 02-16-2025 End: 26-67-8435Riayjjy encounter procedureProMedica Rheumatology, A Department of [facility]art: 99-95-2177Nioxlwglc for malignant neoplasm of cervixNOMS HealthcareStart: 02-09-2025 End: 45-46-8774AU biophysical profile w non stress testUS biophysical profile w non stress test Imaging Routine Third trimester (HHS-HCC) 28 weeks gestation of (HHS-HCC) Anemia complicating childbirth (HHS-HCC) Anticoagulant long-term use Antiphospholipid antibody positive Blood pressure elevated without history of HTN Coagulation defect, unspecified (HHS-HCC) Expected: 02/09/2025 (Approximate), Expires: 08/10/2025 NOMS HealthcareComment on above:Expected: 02/09/2025 (Approximate), Expires: 08/10/2025Start: 02-09-2025 End: 65-68-5499ML for pregnancyUS OB follow up transabdominal approach Imaging Routine Third trimester (HHS-HCC) 28 weeks gestation of (HHS-HCC) Anemia complicating childbirth (HHS-HCC) Anticoagulant long-term use Antiphospholipid antibody positive Blood pressure elevated without history of HTN Coagulation defect, unspecified (HHS-HCC) Expected: 02/09/2025, Expires: 06/12/2025NOMS HealthcareComment on above:Expected: 02/09/2025, Expires: 06/12/2025Start: 02-09-2025 End: 00-41-0621Ixkxvnw encounter vexfvjutw55/13/2025 10:30 AM EDT Routine SHILOH COLVIN [address] [place] [phone] Wilton Herrmann DO [address] [place] [address] SHILOH ZELAYANStart: 02-06-2025 End: 26-34-1806Pqglzzmmipyz consultation with yaliapu2802/06/2025 2:00 PM EDT Telemedicine Maternal- Medicine at [facility] [address] [facility] [place] [phone] Mukul Noyola MD [address] [place], [address] [place] [address], [place] [address] [facility]: 02-05-2025 End: 19-16-0423Vmrwyso encounter askieyatw06/09/2025 1:00 PM EDT Appointment [facility] [place] [address] [facility] [address] [place] [address] Maternal Medicine ComptonStart: 02-01-2025 End: 97-66-1809Kruy complete W/O contrastEcho complete W/O contrast Echocardiography Routine 22 weeks gestation of Antiphospholipid syndrome complicating , antepartum Multigravida of advanced maternal age in second trimester Expected: 02/01/2025 (Approximate), Expires: 01/01/2026 [facility] Work Phone: comment on above:Expected: 02/01/2025 (Approximate), Expires: 01/01/2026Start: 01-19-2025 End: 80-90-5973Ceqcvda encounter dcogozgmp15/22/2025 9:00 AM EDT Routine NOMJaylan COLVIN [address] [facility] [address] [place], [phone] Wilton Herrmann DO [address] [place] [address] NOMJaylan HAMILTONtart: 01-13-2025 End: 13-42-4363Ucvmngzbjmtj consultation with rqpyfle1901/13/2025 10:00 AM EDT Telemedicine Maternal- Medicine at [facility] [address] [facility] [place] [phone] Roxana Mays PA-C [address] [facility], [id number] [facility]: 01-05-2025 End: 20-62-6891Vgqkozf encounter okfubnfae88/08/2025 2:40 PM EDT Routine NOMJaylan [place] OBGYN [address] [facility] [address] [place], [phone] Wilton Herrmann DO [address] [facility] [place] [address] NOM[facility] Piyush OBGYNStart: 01-05-2025 End: lead ECGECG 12 lead unit performed ECG Routine Thyroid disease Gestational diabetes mellitus (GDM), antepartum, gestational diabetes method of control unspecified (HHS-HCC) Multigravida of advanced maternal age in second trimester (HHS-HCC) Lightheaded Dizziness Expected: 01/05/2025 (Approximate), Expires:01/05/2026NOMS HealthcareComment on above:Expected: 01/05/2025 (Approximate), Expires: 01/05/2026Start: 01-05-2025 End: 61-30-3379Ngxmznpftsooow 2D completeEchocardiogram 2D complete Echocardiography Routine Thyroid disease Gestational diabetes mellitus (GDM), antepartum, gestational diabetes method of control unspecified (HHS-HCC) Multigravida of advanced maternal age in second trimester (HHS-HCC) Lightheaded Dizziness Expected: 01/05/2025 (Approximate), Expires: 01/05/2027[facility] Work Phone: comment on above:Expected: 01/05/2025 (Approximate), Expires: 01/05/2027Start: 01-01-2025 End: 61-86-5604Unoofigjamjd consultation with kteojaf7101/01/2025 2:30 PM EDT Telemedicine [facility] [place] [address] [facility] [address] [place] [phone] Mukul Noyola MD [address] [facility], [address] [place] [address] Maternal Medicine [place]Start: 01-01-2025 End: 42-95-7251PU MFM with or without consultUS MFM with [...] on above:Expected: 01/01/2025, Expires: 01/01/2026Start: 01-01-2025 End: 63-96-5585Qknybah encounter svugjyynm13/04/2025 1:00 PM EDT Appointment [facility] [place] [address] [facility] [address] [place] [address] Maternal Medicine ComptonStart: 12-29-2024 COVID-19 Vaccine ( season)COVID-19 Vaccine ( season)[facility] CenterStart: 46-17-3073Dziavmjsk vaccinationThe Christ Hospitaltart: 12-24-2024 End: 62-36-4202LZA W Auto Differential panel - BloodCOMPLETE BLOOD COUNT AND DIFFERENTIAL Lab Routine Primary hypercoagulable state (HCC) CVA, old, spee ch/language deficit Cerebral hyponatremia Personal history of TIA (transient ischemic attack) Expected: 12/24/2024, Expires: 03/25/2025[facility] Work Phone: Comment on above:Expected: 12/24/2024, Expires: 03/25/2025Start: 12-24-2024 End: 92-75-0387Wkijuxvkp (Vitamin B12) [Mass/volume] in Serum or PlasmaVITAMIN B12 Lab Routine Primary hypercoagulable state (HCC) CVA, old, speech/language deficit Cerebral hyponatremia Personal history of TIA (transient ischemic attack) Expected: 12/24/2024, Expires: 03/25/2025[facility] ClinicComment on above:Expected: 12/24/2024, Expires: 03/25/2025Start: 12-24-2024 End: 99-55-2037Dfmrepoyeafgl metabolic 2000 panel - Serum or PlasmaCOMPREHENSIVE METABOLIC PANEL Lab Routine Primary hypercoagulable state (HCC) CVA, old, speech/language deficit Cerebral hyponatremia Personal history of TIA (transient ischemic attack) Expected: 12/24/2024, Expires: 03/25/2025[facility] Comment on above:Expected: 12/24/2024, Expires: 03/25/2025Start: 12-24-2024 End: 73-27-1448Kbfegryx [Mass/volume] in Serum or PlasmaFERRITIN Lab Routine Primary hypercoagulable state (HCC) CVA, old, speech/language deficit Cerebral hyponatremia Personal history of TIA (transient ischemic attack) Expected: 12/24/2024, Expires: 03/25/2025[facility] ClinicComment on above:Expected: 12/24/2024, Expires: 03/25/2025Start: 12-24-2024 End: 26-55-1280Gtzn and Iron binding capacity panel - Serum or PlasmaIRON AND TIBC Lab Routine Primary hypercoagulable state (HCC) CVA, old, speech/language deficit Cerebral hyponatremia Personal history of TIA (transient ischemic attack) Expected: 12/24/2024, Expires: 03/25/2025[facility] ClinicComment on above:Expected: 12/24/2024, Expires: 03/25/2025Start: 12-23-2024 End: 077836-fyjfuevifqjqxa D3 [Mass/volume] in Serum or PlasmaVITAMIN D 25 HYDROXY Lab Routine 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) Vitamin D deficiency Expected: 12/23/2024, Expires: 03/24/2025[facility] Work Phone: Comment on above:Expected: 12/23/2024, Expires: 03/24/2025Start: 12-22-2024 End: 57-95-9464Vpxnca-up hgvmuruda21/25/2025 1:30 PM EDT Visit (SP) Office Hematology/Oncology [address] [place], [place] [phone] Katherine Negrete APRN.PEN RULER OPERATOR [address] [place] [address] 8 week follow up labHematology/OncologyComment on above:8 week follow up labStart: 12-22-2024 End: 40-72-4466Hazmwse encounter uacarvwet06/25/2025 1:15 PM EDT Office Visit [facility] [address] [facility] [place] [address] 8 week follow up labNortCorewell Health Pennock Hospital LaboratoryComment on above:8 week follow up labStart: 12-17-2024 End: 94-86-7172Ayzlranvfchr consultation with iawxxdx2812/17/2024 1:30 PM EDT Telemedicine Maternal- Medicine at [facility] [address] [place] [phone] Alisa Saba, VICTOR HUGO-PEN RULER OPERATOR [address] [place] [address] [facility]: 12-11-2024 End: 25-02-2773Ardriia encounter lbwyvfmhp81/14/2025 9:10 AM EDT Routine [facility] Piyush ZELAYAN [address] [place], [id number] Wilton Herrmann DO [address] [place] [address] NOM[facility] Piyush ROBBGYNStart: 12-03-2024 End: 37-24-9024Btihgcaixdjk consultation with ckwxnfz7512/03/2024 2:00 PM EDT Telemedicine Maternal- Medicine at [facility] [address] [place] [address] Alisa Saba, ROD PLACER-PEN RULER OPERATOR [address] [place] [address] [facility]: 11-20-2024 End: 45-08-4877Hlqcg fetoprotein, maternalAlpha fetoprotein, maternal Lab Routine Second trimester ([facility]) Expected: 11/20/2024 (Approximate), Expires: 01/21/2025N[facility] HealthcareComment on above:Expected: 11/20/2024 (Approximate), Expires: 01/21/2025Start: 11-20-2024 End: 32-45-7332Ryhvjmk encounter /24/2025 10:10 AM EDT Routine [facility]OM[facility] BCP OB [address] [facility] [place] [address] Wilton Herrmann DO [address] [facility] [place] [address] NOMS BCP OBStart: 11-19-2024 End: 80-36-6553bxdgbkoluq40/23/2025 9:30 AM EDT Support Visit Maternal- Medicine at [facility] [address] [place] [phone] Lorena Enciso RN [address] [facility] [address] [place] [address] Stephanie Quiros LD Fischer, Kelli, JERONIMO [address] [facility] [address], [address] [place] [address] [facility]: 11-12-2024 End: 44-43-5091IX MFM with or without consultUS MFM with or without consult Imaging Routine Gestational diabetes mellitus (GDM), antepartum, gestational diabetes method of control unspecified Expected: 11/12/2024 (Approximate), Expires: 10/13/2025[facility] Work Phone: comment on above:Expected: 11/12/2024 (Approximate), Expires: 10/13/2025Start: 10-30-2024 End: 18-20-4899Suomzpm encounter /03/2025 10:40 AM EDT Routine [facility] BCP OB [address] [facility] [place] [address] Wilton Herrmann, DO [address] [facility] [place] [address] NOMS BCP OBStart: 10-30-2024 End: 84-30-3964Dmqserj encounter qomaounvg21/03/2025 9:30 AM EDT Routine [facility] BCP OB [address] [place] [address] Wilton Herrmann, DO [address] [facility] [place] [address] ArrivedNOMS BCP OBComment on above: ArrivedStart: 10-28-2024 End: 08-10-4748Zeyvfn-up /01/2025 2:30 PM EDT Visit (SP) Office Hematology/Oncology [address] [facility] [facility] [place], [place] [phone] Katherine Negrete APRN.PEN RULER OPERATOR [address] [place] [address] 3 month follow upHematology/OncologyComment on above:3 month follow upStart: 10-28-2024 End: 32-86-4133Qvrbqgv encounter lubmcuhti10/01/2025 2:15 PM EDT Office Visit [facility] [address] [place] [address] labs - patient prefers to come same dayNortCorewell Health Pennock Hospital LaboratoryComment on above:labs - patient prefers to come same day Start: 10-27-2024 End: 82-08-9437Qrewyrb encounter puouwyzph73/30/2025 9:20 AM EDT Office Visit [facility] OB [address] [facility] [place] [address] Wilton Herrmann DO [address] [facility] [place] [address] NOMS BCP OBStart: 10-20-2024 End: 98-68-2953Oavphggstccm / ancillary services pafybswzsh56/23/2025 1:00 PM EDT Ancillary Procedure [facility] OB [address] [place] [address] NOMS BCP OBStart: 10-10-2024 End: 73-86-3072Kaazgo-up mqnguosoh93/13/2025 10:40 AM EDT Visit (SP) Office Hematology/Oncology [address] [place] [address] Kristofer Calix MD [address] [place] [address] 3 month follow upHematology/OncologyComment on above:3 month follow upStart: 10-10-2024 End: 01-87-5120Birnmck encounter xiouygwlg47/13/2025 10:15 AM EDT Office Visit [facility] [address] [place] [address] labs - patient prefers to come same dayNortCorewell Health Pennock Hospital LaboratoryComment on above:labs - patient prefers to come same day Start: 10-02-2024 End: 39-79-3202TLG/RhABO/Rh Lab Routine Missed menses , unspecified gestational age Expected: 10/02/2024 (Approximate), Expires: 10/02/2025NOMS HealthcareComment on above:Expected: 10/02/2024 (Approximate), Expires: 10/02/2025Start: 10-02-2024 End: 52-12-6074Duhnc type and Indirect antibody screen panel - BloodType and screen Lab Routine Missed menses , unspecified gestational age Expected: 10/02/2024 (Approximate), Expires: 10/02/2025[facility] Work Phone: comment on above:Expected: 10/02/2024 (Approximate), Expires: 10/02/2025Start: 10-02-2024 End: 02-19-3045Rjmrk of abuse panel - Urine by Screen methodRapid drug screen, urine Lab Routine , unspecified gestational age Encounter for supervision of normal first in first trimester Expected: 10/02/2024 (Approximate), Expires: 10/02/2025NOTN HealthcareComment on above:Expected: 10/02/2024 (Approximate), Expires: 10/02/2025Start: 10-02-2024 End: 39-27-2292kwqstdudnb19/05/2025 1:00 PM EDT Initial [facility] OB [facility] [place] [address] NOMS BCP OBStart: 10-02-2024 End: 75-14-9131Fahrwlkeerwp / ancillary services /05/2025 12:30 PM EDT Ancillary Procedure [facility] OB [facility] [address] [place] [phone] [facility] OBStart: 08-27-2024 End: 63-54-9510Kditfs-up exvewbwfu94/30/2025 2:00 PM EDT Visit (SP) Office Hematology/Oncology [address] [place], [place] [address], [place] [phone] Kristofer Calix MD [facility] [place] [address] 3 month follow upHematology/OncologyComment on above:3 month follow upStart: 08-27-2024 End: 85-45-6389Wxfkxkm encounter tjxtdiyna64/30/2025 1:45 PM EDT Office Visit [facility] [place] [address] labs - patient prefers to come [facility] day[facility] LaboratoryComment on above:labs - patient prefers to come same day Start: 08-26-2024 End: 521585-lfpyfrupthckod D3 [Mass/volume] in Serum or PlasmaVITAMIN D 25 HYDROXY Lab Routine 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 Vitamin D deficiency Expected: 08/26/2024, Expires: 11/25/2024[facility] ClinicComment [facility] above: Expected: 08/26/2024, Expires: 11/25/2024Start: 08-26-2024 End: 66-65-5504MZG W Auto Differential panel - BloodCOMPLETE BLOOD COUNT AND DIFFERENTIAL Lab Routine 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 Vitamin D deficiency Expected: 08/26/2024, Expires: 11/25/2024[facility] Work Phone: Comment on above:Expected: 08/26/2024, Expires: 11/25/2024Start: 08-26-2024 End: 47-41-6535Hbrhjfwsm (Vitamin B12) [Mass/volume] in Serum or PlasmaVITAMIN B12 Lab Routine 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 Vitamin D deficiency Expected: 08/26/2024, Expires: 11/25/2024[facility] ClinicComment on above: Expected: 08/26/2024, Expires: 11/25/2024Start: 08-26-2024 End: 71-67-7300Ommdxlghsdojr metabolic 2000 panel - Serum or PlasmaCOMPREHENSIVE METABOLIC PANEL Lab Routine Antiphospholipid antibody positive Iron deficiency anemiasecondary to blood loss (chronic) Malaise and fatigue Vitamin D deficiency Expected: 08/26/2024, Expires: 11/25/2024[facility] ClinicComment on above: Expected: 08/26/2024, Expires: 11/25/2024Start: 08-26-2024 End: 90-43-0141Hgazhjdm [Mass/volume] in Serum or PlasmaFERRITIN Lab Routine 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) Malaise and fatigue Vitamin D deficiency Expected: 08/26/2024, Expires: 11/25/2024[facility] ClinicComment on above:Expected: 08/26/2024, Expires: 11/25/2024Start: 08-26-2024 End: 20-29-2045Pjro and Iron binding capacity panel - Serum or PlasmaIRON AND TIBC Lab Routine 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 Vitamin D deficiency Expected: 08/26/2024, Expires: 11/25/2024[facility] ClinicComment on above: Expected: 08/26/2024, Expires: 11/25/2024Start: 08-26-2024 End: 53-63-9017Wtglwlchcsv [Units/volume] in Serum or PlasmaTHYROID STIMULATING HORMONE Lab Routine Antiphospholipid antibody positive 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) Malaise and fatigue Vitamin D deficiency Expected: 08/26/2024, Expires: 11/25/2024[facility] ClinicComment on above: Expected: 08/26/2024, Expires: 11/25/2024Start: 07-24-2024 End: 82-50-9946AyrrbwnllummGrwevgojnshi Lab Routine Irregular menstrual cycle Expected: 07/24/2024 (Approximate), Expires: 07/24/2025[facility] Work Phone: comment on above:Expected: 07/24/2024 (Approximate), Expires: 07/24/2025Start: 33-05-4273NMwR,Tdap and Td Vaccines (2 - Td or Tdap) DTaP,Tdap and Td Vaccines (2 - Td or Tdap)[facility] HospitalPhytoCeutica VoloAgri Group SystemStart: 46-07-4144OYyN/Tdap/Td vaccine (2 - Td or Tdap)DTaP/Tdap/Td vaccine (2 - Td or Tdap)[facility] SYSTEMStart: 40-14-0753Xcqzu microalbumin profile [facility]: 06-23-2024 End: 48-81-1736AX PelvisUS Pelvis w/ TV Imaging Routine Vaginal bleeding Vaginal discharge Pelvic pain in female Expected: 06/23/2024, Expires: 06/23/2025[facility] HealthcareComment on above:Expected: 06/23/2024, Expires: 06/23/2025Start: 06-02-2024 End: 47-33-7567Vskjuzn encounter /03/2025 11:20 AM EST Office Visit [facility] [address] [phone] Wilton Herrmann, DO [address] [place] [address] [facility] OBStart: 05-21-2024 End: 95-38-8232Zslsus-up xuiylaaqo45/22/2025 2:20 PM EST Visit (SP) Office Hematology/Oncology [address] [place], [place] [phone] Kristofer Calix MD [address] [place] [address] 3 month follow up with labHematology/OncologyComment on above:3 month follow up with labStart: 05-21-2024 End: 67-04-5592Tjnygxp encounter urjulweve69/22/2025 2:00 PM EST Office Visit [facility] [address] [place] [address] [place] [address] 3 month follow up with labNortCorewell Health [facility] LaboratoryComment on above:3 month follow up with labStart: 05-06-2024 End: 90-95-8406TS for pregnancyN[facility]S Healthcare Work Phone: comment on above:Expected: 05/06/2024, Expires: 05/06/2025Start: 05-06-2024 End: 57-82-8175Kygroda encounter igkqirjyo70/07/2025 1:50 PM EST Routine [facility] [address] [address] [place] [address] Wilton Herrmann, DO [address] [place] [address] [facility] OBStart: 04-09-2024 End: 95-08-6758Kdpmpi-up encounterHematology/OncologyComment on above:3 month follow up with labStart: 04-09-2024 End: 47-11-3168Csulwpp encounter procedureOpelousas General Hospital LaboratoryComment on above:3 month follow up with labStart: 04-04-2024 End: 92-13-2155SZW/RhABO/Rh Lab Routine Missed menses , unspecified gestational age Expected: 04/04/2024 (Approximate), Expires: 04/04/2025[facility] HealthcareComment on above:Expected: 04/04/2024 (Approximate), Expires: 04/04/2025Start: 04-04-2024 End: 65-19-3716Nfpjs type and Indirect antibody screen panel - BloodType and screen Lab Routine Missed menses , unspecified gestational age Expected: 04/04/2024 (Approximate), Expires: 04/04/2025[facility] Work Phone: comment on above:Expected: 04/04/2024 (Approximate), Expires: 04/04/2025Start: 04-04-2024 End: 91-70-0780Nsnmk of abuse panel - Urine by Screen methodRapid drug screen, urine Lab Routine , unspecified gestational age Encounter for supervision of normal first in first trimester Expected: 04/04/2024 (Approximate), Expires: 04/04/2025[facility] HealthcareComment on above:Expected: 04/04/2024 (Approximate), Expires: 04/04/2025Start: 04-04-2024 End: 62-64-2625ME Pelvis transvaginalUS OB transvaginal Imaging Routine Missed menses Expected: 04/04/2024 (Approximate), Expires: 04/04/2025[facility] Healthcare Comment on above:Expected: 04/04/2024 (Approximate), Expires: 04/04/2025Start: 04-02-2024 End: 723903-gdiczbiaychnxw D3 [Mass/volume] in Serum or PlasmaVITAMIN D 25 HYDROXY Lab Routine Iron deficiency anemia secondary to blood loss (chronic) Vitamin Ddeficiency Malaise and fatigue Expected: 04/02/2024 (Approximate), Expires: 07/02/2024[facility] ClinicComment on above:Expected: 04/02/2024 (Approximate), Expires: 07/02/2024Start: 04-02-2024 End: 52-50-5470YZQ W Auto Differential panel - BloodCOMPLETE BLOOD COUNT AND DIFFERENTIAL Lab Routine Iron deficiency anemia secondary to blood loss (ch ronic) Vitamin D deficiency Malaise and fatigue Expected: 04/02/2024 (Approximate), Expires: 01/01/2025[facility] ClinicComment on above:Expected: 04/02/2024 (Approximate), Expires: 01/01/2025Start: 04-02-2024 End: 24-20-1406Oqygwcazm (Vitamin B12) [Mass/volume] in Serum or PlasmaVITAMIN B12 Lab Routine Iron deficiency anemia secondary to blood loss (chronic) Vitamin D deficiency Malaise and fatigue Expected: 04/02/2024 (Approximate), Expires: 01/01/2025[facility] ClinicComment on above:Expected: 04/02/2024 (Approximate), Expires: 01/01/2025Start: 04-02-2024 End: 67-86-0750Znyjhzlmgsybb metabolic 2000 panel - Serum or PlasmaCOMPREHENSIVE METABOLIC PANEL Lab Routine Iron deficiency anemia secondary to blood loss (chronic) Vitamin D deficiency Malaise and fatigue Expected: 04/02/2024 (Approximate), Expires: 01/01/2025[facility] ClinicComment on above:Expected: 04/02/2024 (Approximate), Expires: 01/01/2025Start: 04-02-2024 End: 50-17-4124Lcidwowa [Mass/volume] in Serum or PlasmaFERRITIN Lab Routine Iron deficiency anemia secondary to blood loss (chronic) Vitamin D deficiency M alaise and fatigue Expected: 04/02/2024 (Approximate), Expires: 01/01/2025 [facility] CenterComment [facility]:Expected: 04/02/2024 (Approximate), Expires: 01/01/2025Start: 04-02-2024 End: 24-52-9762Kwipdb [Mass/volume] in Serum or PlasmaFOLATE, SERUM Lab Routine Iron deficiency anemia secondary to blood loss (chronic) Vitamin D deficiency Malaise and fatigue Expected: 04/02/2024 (Approximate), Expires: 01/01/2025 [facility] CenterComment on above:Expected: 04/02/2024 (Approximate), Expires: 01/01/2025Start: 04-02-2024 End: 87-64-2237Htuy and Iron binding capacity panel - Serum or PlasmaIRON AND TIBC Lab Routine Iron deficiency anemia secondary to blood loss (chronic) Vitamin D deficiency Malaise and fatigue Expected: 04/02/2024 (Approximate), Expires: 01/01/2025[facility] ClinicComment on above:Expected: 04/02/2024 (Approximate), Expires: 01/01/2025Start: 04-02-2024 End: 41-90-7732Wiveusqgcjl [Units/volume] in Serum or PlasmaTHYROID STIMULATING HORMONE Lab Routine Iron deficiency anemia secondary to blood loss (chronic) Vit vogel D deficiency Malaise and fatigue Expected: 04/02/2024 (Approximate), Expires: 07/02/2024[facility] Work Phone: Comment on above:Expected: 04/02/2024 (Approximate), Expires: 07/02/2024Start: 01-05-2024 End: 57-71-7070HVI W Auto Differential panel - BloodCOMPLETE BLOOD COUNT AND DIFFERENTIAL Lab Routine Iron deficiency anemia secondary to blood loss (ch ronic) Vitamin D deficiency Malaise and fatigue Expected: 01/05/2024 (Approximate), Expires: 01/01/2025[facility] ClinicComment on above:Expected: 01/05/2024 (Approximate), Expires: 01/01/2025Start: 01-05-2024 End: 19-38-6932Jjgirehckczbg metabolic 2000 panel - Serum or PlasmaCOMPREHENSIVE METABOLIC PANEL Lab Routine Iron deficiency anemia secondary to blood loss (chronic) Vitamin D deficiency Malaise and fatigue Expected: 01/05/2024 (Approximate), Expires: 01/01/2025[facility] ClinicComment on above:Expected: 01/05/2024 (Approximate), Expires: 01/01/2025Start: 01-02-2024 End: 52-09-6292Kjoivm-up lxbrumcrb86/04/2024 1:45 PM EDT Visit (SP) Office Hematology/Oncology [address] [place] [address] [place], [place] [phone] Kristofer Calix MD [address] [place] [address] [place] [address] 8 WEEK FOLLOW UPHematology/OncologyComment on above:8 WEEK FOLLOW UPStart: 01-02-2024 End: 29-51-4205Drxwbrs encounter xgsartlwy80/04/2024 1:30 PM EDT Office Visit [facility] [address] [place], [place] [address] [address] 8 WEEK FOLLOW UPNortCorewell Health [facility]ock [facility] LaboratoryComment on above:8 WEEK FOLLOW UPStart: 39-73-1394Bjubf-19 Vaccine ( season)Covid-19 Vaccine ( season)[facility]: 00-22-0351Zfksa-19 Vaccine ( season)Covid-19 Vaccine ( season)[facility]: 89-11-0613Igsxpeulu vaccinationLouis [facility] Start: 11-29-2023 End: 83-08-8286brbrzjczhe40/01/2024 1:30 PM EDT Infusion Center Hematology/Oncology [address] [place] [address] [place] [address] VENOFER 300Hematology/OncologyComment on above:VENOFER 300Start: 11-22-2023 End: 79-33-8532lrwzazsutc38/25/2024 1:30 PM EDT Infusion Center Hematology/Oncology [address] [place] [address] [place] [address] VENOFER 300Hematology/OncologyComment on above:VENOFER 300Start: 11-15-2023 End: 84-28-4848lublfkiugu88/18/2024 1:30 PM EDT Infusion Center Hematology/Oncology [address] [place] [address] [place] [address] VENOFER 300Hematology/OncologyComment on above:VENOFER 300Start: 09-13-2023 End: 61-95-311023627224-kxauglqwwprjzz D3 [Mass/volume] in Serum or PlasmaVITAMIN D 25 HYDROXY Lab Routine Vitamin D deficiency 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) Expected: 09/13/2023 (Approximate), Expires: 12/13/2023[facility] Work Phone: Comment on above:Expected: 09/13/2023 (Approximate), Expires: 12/13/2023Start: 09-13-2023 End: 60-36-3387Zlocnxr.ionized [Moles/volume] in BloodCALCIUM IONIZED BLOOD Lab Routine Vitamin D deficiency 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) Expected: 09/13/2023 (Approximate), Expires: 12/13/2023 [facility] Work Phone: Comment on above:Expected: 09/13/2023 (Approximate), Expires: 12/13/2023Start: 09-13-2023 End: 77-58-7532BZJ W Auto Differential panel - BloodCBC + DIFF Lab Routine Vitamin D deficiency 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) Expected: 09/13/2023 (Approximate), Expires: 06/15/2024[facility] Work Phone: Comment on above:Expected: 09/13/2023 (Approximate), Expires: 06/15/2024Start: 09-13-2023 End: 28-52-7225Eqzatliyp (Vitamin B12) [Mass/volume] in Serum or PlasmaVITAMIN B12 BLOOD Lab Routine Vitamin D deficiency 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) Expected: 09/13/2023 (Approximate), Expires: 06/15/2024[facility] Work Phone: Comment on above:Expected: 09/13/2023 (Approximate), Expires: 06/15/2024Start: 09-13-2023 End: 71-68-9433Irvdqjfqneoyw metabolic 2000 panel - Serum or PlasmaCOMP METABOLIC PANEL Lab Routine Vitamin D deficiency 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) Expected: 09/13/2023 (Approximate), Expires: 06/15/2024[facility] Work Phone: Comment on above:Expected: 09/13/2023 (Approximate), Expires: 06/15/2024Start: 09-13-2023 End: 91-42-2503Lsoinqbq [Mass/volume] in Serum or PlasmaFERRITIN BLD Lab Routine Vitamin D deficiency 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) Expected: 09/13/2023 (Approximate), Expires: 06/15/2024[facility] Work Phone: Comment on above:Expected: 09/13/2023 (Approximate), Expires: 06/15/2024Start: 09-13-2023 End: 30-74-6482Iztuti [Mass/volume] in Serum or PlasmaFOLATE SERUM Lab Routine Vitamin D deficiency 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) Expected: 09/13/2023 (Approximate), Expires: 06/15/2024[facility] Work Phone: Comment on above:Expected: 09/13/2023 (Approximate), Expires: 06/15/2024Start: 09-13-2023 End: 95-81-9505Ihzm and Iron binding capacity panel - Serum or PlasmaIRON + TIBC Lab Routine Vitamin D deficiency 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) Expected: 09/13/2023 (Approximate), Expires: 06/15/2024 [facility] Work Phone: Comment on above:Expected: 09/13/2023 (Approximate), Expires: 06/15/2024Start: 09-13-2023 End: 23-51-5218Vpetigzmej.intact [Mass/volume] in Serum or PlasmaPTH INTACT BLD Lab Routine Vitamin D deficiency 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) Expected: 09/13/2023 (Approximate), Expires: 12/13/2023 [facility] Work Phone: Comment on above:Expected: 09/13/2023 (Approximate), Expires: 12/13/2023Start: 06-15-2023 End: 384017-lqlmczyjsnblyd D3 [Mass/volume] in Serum or PlasmaVITAMIN D 25 HYDROXY Lab Routine Vitamin D deficiency Expected: 06/15/2023 (Approximate), Expires: 09/14/2023[facility] Work Phone: Comment on above:Expected: 06/15/2023 (Approximate), Expires: 09/14/2023Start: 06-15-2023 End: 06-08-8136Rurqfgm.ionized [Moles/volume] in BloodCALCIUM IONIZED BLOOD Lab Routine Vitamin D deficiency Hypercalcemia Expected: 06/15/2023 (Approximate), Expires: 09/14/2023[facility] Work Phone: Comment on above:Expected: 06/15/2023 (Approximate), Expires: 09/14/2023Start: 06-15-2023 End: 25-39-7119NMX W Auto Differential panel - BloodCBC + DIFF Lab Routine Iron deficiency anemia secondary to blood loss (chronic) Expected: 06/15/2023 (Approximate), Expires: 06/12/2024[facility] Work Phone: Comment on above:Expected: 06/15/2023 (Approximate), Expires: 06/12/2024Start: 06-15-2023 End: 44-67-2211Qqnudgmwc (Vitamin B12) [Mass/volume] in Serum or PlasmaVITAMIN B12 BLOOD Lab Routine Iron deficiency anemia secondary to blood loss (chronic) Expected: 06/15/2023 (Approximate), Expires: 06/12/2024[facility] Work Phone: Comment on above:Expected: 06/15/2023 (Approximate), Expires: 06/12/2024Start: 06-15-2023 End: 64-21-9185Kvitbdrgfxmup metabolic 2000 panel - Serum or PlasmaCOMP METABOLIC PANEL Lab Routine Iron deficiency anemia secondary to blood loss (chronic) Expected:06/15/2023 (Approximate), Expires: [address] [place] [address] Work Phone: Comment on above:Expected: 06/15/2023 (Approximate), Expires: 06/12/2024Start: 06-15-2023 End: 32-67-7588Aaqgqkhw [Mass/volume] in Serum or PlasmaFERRITIN BLD Lab Routine Iron deficiency anemia secondary to blood loss (chronic) Expected: 06/15/2023 (Approximate), Expires: [address] [place] [address] Work Phone: Comment on above:Expected: 06/15/2023 (Approximate), Expires: 06/12/2024Start: 06-15-2023 End: 28-99-4746Okatod [Mass/volume] in Serum or PlasmaFOLATE SERUM Lab Routine Iron deficiency anemia secondary to blood loss (chronic) Expected: 06/15/2023 (Approximate), Expires: [address] [place] [address] Work Phone: Comment on above:Expected: 06/15/2023 (Approximate), Expires: 06/12/2024Start: 06-15-2023 End: 85-46-4890Gnbc and Iron binding capacity panel - Serum or PlasmaIRON + TIBC Lab Routine Iron deficiency anemia secondary to blood loss (chronic) Expected: 06/15/2023 (Approximate), Expires: [address] [place] [address] Work Phone: Comment on above:Expected: 06/15/2023 (Approximate), Expires: 06/12/2024Start: 06-15-2023 End: 39-37-4793FFB, INTACT (WITHOUT CALCIUM)PTH, INTACT (WITHOUT CALCIUM) Lab Routine Vitamin D deficiency Hypercalcemia Expected: 06/15/2023 (Approximate), Expires: 09/14/2023[facility] Work Phone: Comment on above:Expected: 06/15/2023 (Approximate), Expires: 09/14/2023Start: 06-15-2023 End: 35-23-7851Sqmonsutpeb [Units/volume] in Serum or PlasmaTSH BLD Lab Routine Malaise and fatigue Expected: 06/15/2023 (Approximate), Expires: 09/14/2023 [facility] Work Phone: Comment on above:Expected: 06/15/2023 (Approximate), Expires: 09/14/2023Start: 06-14-2023 End: 41-14-086301012810-wgbbyxrwkvnzvw D3 [Mass/volume] in Serum or PlasmaVITAMIN D 25 HYDROXY Lab Routine Hypercalcemia Vitamin D deficiency Expected: 06/14/2023 (Approximate), Expires: 09/13/2023[facility] Work Phone: Comment on above:Expected: 06/14/2023 (Approximate), Expires: 09/13/2023Start: 06-14-2023 End: 33-34-3079Emrcuby.ionized [Moles/volume] in BloodCALCIUM IONIZED BLOOD Lab Routine Hypercalcemia Vitamin D deficiency Expected: 06/14/2023 (Approximate), Expires: 09/13/2023[facility] Work Phone: Comment on above:Expected: 06/14/2023 (Approximate), Expires: 09/13/2023Start: 06-14-2023 End: 48-31-9561RXG, INTACT (WITHOUT CALCIUM)PTH, INTACT (WITHOUT CALCIUM) Lab Routine Hypercalcemia Vitamin D deficiency Expected: 06/14/2023 (Approximate), Expires: 09/13/2023[facility] Work Phone: Comment on above:Expected: 06/14/2023 (Approximate), Expires: 09/13/2023Start: 06-14-2023 End: 91-33-4104Jtxcgfdvqqj [Units/volume] in Serum or PlasmaTSH BLD Lab Routine Hypercalcemia Malaise and fatigue Expected: 06/14/2023 (Approximate), Expires: [address] [place] [address] Work Phone: Comment on above:Expected: 06/14/2023 (Approximate), Expires: 09/13/2023Start: 05-14-2023 End: 05-29-1509PEP W Auto Differential panel - BloodCBC + DIFF Lab Routine Primary hypercoagulable state (HCC) Iron deficiency anemia secondary to blood loss (chronic) Vitamin D deficiency CVA, old, 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) Expected: 05/14/2023 (Approximate), Expires: 03/19/2024[facility] Work Phone: Comment on above:Expected: 05/14/2023 (Approximate), Expires: 03/19/2024Start: 05-14-2023 End: 29-55-8661Rwymdutoa (Vitamin B12) [Mass/volume] in Serum or PlasmaVITAMIN B12 BLOOD Lab Routine Primary hypercoagulable state (HCC) Iron deficiency anemia secondary to blood loss (chronic) Vitamin D deficiency CVA, old, 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) Expected: 05/14/2023 (Approximate), Expires: 03/19/2024[facility] Work Phone: Comment on above:Expected: 05/14/2023 (Approximate), Expires: 03/19/2024Start: 05-14-2023 End: 09-90-2510Mvmfkvwwdyvfi metabolic 2000 panel - Serum or PlasmaCOMP METABOLIC PANEL Lab Routine Primary hypercoagulable state (HCC) Iron deficiency anemia secondary to blood loss (chronic) Vitamin D deficiency CVA, old, 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) Expected: 05/14/2023 (Approximate), Expires: 03/19/2024[facility] Work Phone: Comment on above:Expected: 05/14/2023 (Approximate), Expires: 03/19/2024Start: 05-14-2023 End: 13-23-9156Vfqrnxaa [Mass/volume] in Serum or PlasmaFERRITIN BLD Lab Routine Primary hypercoagulable state (HCC) Iron deficiency anemia secondary to blood loss (chronic) Vitamin D deficiency CVA, old, 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) Expected: 05/14/2023 (Approximate), Expires: 03/19/2024[facility] Work Phone: Comment on above:Expected: 05/14/2023 (Approximate), Expires: 03/19/2024Start: 05-14-2023 End: 43-38-8342Ycavbd [Mass/volume] in Serum or PlasmaFOLATE SERUM Lab Routine Primary hypercoagulable state (HCC) Iron deficiency anemia secondary to blood loss (chronic) Vitamin D deficiency CVA, old, 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) Expected: 05/14/2023 (Approximate), Expires: 03/19/2024[facility] Work Phone: Comment on above:Expected: 05/14/2023 (Approximate), Expires: 03/19/2024Start: 05-14-2023 End: 02-37-4608Mdqj and Iron binding capacity panel - Serum or PlasmaIRON + TIBC Lab Routine Primary hypercoagulable state (HCC) Iron deficiency anemia secondary to blood loss (chronic) Vitamin D deficiency CVA, old, 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) Expected: 05/14/2023 (Approximate), Expires: 03/19/2024[facility] Work Phone: Comment on above:Expected: 05/14/2023 (Approximate), Expires: 03/19/2024Start: 17-46-9655Kyoosdryqr Health ScreeningBehavioral Health ScreeningThe [facility] Hospitaltart: 05-12-3465Elpdglinds AssessmentDepression AssessmentThe [facility] Hospitaltart: 02-16-2023 End: 90-87-469816590103-gulezvrjtnbwau D3 [Mass/volume] in Serum or PlasmaVITAMIN D 25 HYDROXY Lab Routine Primary hypercoagulable state (HCC) Iron deficiency anemia secondary to blood loss (chronic) Vitamin D deficiency Expected: 02/16/2023 (Approximate), Expires: 04/18/2023[facility] Work Phone: Comment on above:Expected: 02/16/2023 (Approximate), Expires: 04/18/2023Start: 02-16-2023 End: 20-92-0852YMB W Auto Differential panel - BloodCBC + DIFF Lab Routine Primary hypercoagulable state (HCC) Iron deficiency anemia secondary to blood loss (chronic) Expected: 02/16/2023 (Approximate), Expires: 12/23/2023[facility] Work Phone: Comment on above:Expected: 02/16/2023 (Approximate), Expires: 12/23/2023Start: 02-16-2023 End: 80-42-2735Gtjhhnwrl (Vitamin B12) [Mass/volume] in Serum or PlasmaVITAMIN B12 BLOOD Lab Routine Primary hypercoagulable state (HCC) Iron deficiency anemia secondary to blood loss (chronic) Expected: 02/16/2023 (Approximate), Expires: 12/23/2023[facility] Work Phone: Comment on above:Expected: 02/16/2023 (Approximate), Expires: 12/23/2023Start: 02-16-2023 End: 69-61-7320Xketzbelnrqwp metabolic 2000 panel - Serum or PlasmaCOMP METABOLIC PANEL Lab Routine Primary hypercoagulable state (HCC) Iron deficiency anemia secondary to blood loss (chronic) Expected: 02/16/2023 (Approximate), Expires: 12/23/2023[facility] Work Phone: Comment on above:Expected: 02/16/2023 (Approximate), Expires: 12/23/2023Start: 02-16-2023 End: 21-66-6748Zphncigm [Mass/volume] in Serum or PlasmaFERRITIN BLD Lab Routine Primary hypercoagulable state (HCC) Iron deficiency anemia secondary to blood loss (chronic) Expected: 02/16/2023 (Approximate), Expires: 12/23/2023[facility] Work Phone: Comment on above:Expected: 02/16/2023 (Approximate), Expires: 12/23/2023Start: 02-16-2023 End: 10-17-1284Bywxvh [Mass/volume] in Serum or PlasmaFOLATE SERUM Lab Routine Primary hypercoagulable state (HCC) Iron deficiency anemia secondary to blood loss (chronic) Expected: 02/16/2023 (Approximate), Expires: 12/23/2023[facility] Work Phone: Comment on above:Expected: 02/16/2023 (Approximate), Expires: 12/23/2023Start: 02-16-2023 End: 82-21-3298Lpra and Iron binding capacity panel - Serum or PlasmaIRON + TIBC Lab Routine Primary hypercoagulable state (HCC) Iron deficiency anemia secondary to blood loss (chronic) Expected: 02/16/2023 (Approximate), Expires: 12/23/2023[facility] Work Phone: Comment on above:Expected: 02/16/2023 (Approximate), Expires: 12/23/2023Start: 32-79-1645Ahlvd-19 Vaccine ( season)Covid- 19 Vaccine ()[facility]: 05-83-6456Jtcmlttee vaccinationThe [facility]: 77-08-1081GXJ TESTINGPAP TESTINGThe [facility]: 22-68-2206Hcuzvqngl for malignant neoplasm of cervixPap Testing [facility]: 11-28-2022 End: 73-26-6052KXM W Auto Differential panel - BloodCBC + DIFF Lab Routine Primary hypercoagulable state (HCC) CVA, old, speech/language deficit Cerebral hyponatremia Expected: 11/28/2022 (Approximate), Expires: 10/04/2023[facility] Work Phone: Comment on above:Expected: 11/28/2022 (Approximate), Expires: 10/04/2023Start: 11-28-2022 End: 94-94-7903Gnvzgkiqm (Vitamin B12) [Mass/volume] in Serum or PlasmaVITAMIN B12 BLOOD Lab Routine Primary hypercoagulable state (HCC) CVA, old, speech/language deficitCerebral hyponatremia Expected: 11/28/2022 (Approximate), Expires: 10/04/2023[facility] Work Phone: Comment on above:Expected: 11/28/2022 (Approximate), Expires: 10/04/2023Start: 11-28-2022 End: 94-06-5557Yxizprkyjxxwg metabolic 2000 panel - Serum or PlasmaCOMP METABOLIC PANEL Lab Routine Primary hypercoagulable state (HCC) CVA, old, speech/language deficit Cerebral hyponatremia Expected: 11/28/2022 (Approximate), Expires: [address] [place] [address] Work Phone: Comment on above:Expected: 11/28/2022 (Approximate), Expires: 10/04/2023Start: 11-28-2022 End: 78-42-2346Gaapxfnb [Mass/volume] in Serum or PlasmaFERRITIN BLD Lab Routine Primary hypercoagulable state (HCC) CVA, old, speech/language deficit Cerebral hyponatremia Expected: 11/28/2022 (Approximate), Expires: 10/04/2023[facility] Work Phone: Comment on above:Expected: 11/28/2022 (Approximate), Expires: 10/04/2023Start: 11-28-2022 End: 89-66-6512Mzlucw [Mass/volume] in Serum or PlasmaFOLATE SERUM Lab Routine Primary hypercoagulable state (HCC) CVA, old, speech/language deficit Cerebral hyponatremia Expected: 11/28/2022 (Approximate), Expires: 10/04/2023[facility] Work Phone: Comment on above:Expected: 11/28/2022 (Approximate), Expires: 10/04/2023Start: 11-28-2022 End: 79-98-0649Hxnf and Iron binding capacity panel - Serum or PlasmaIRON + TIBC Lab Routine Primary hypercoagulable state (HCC) CVA, old, speech/language deficit Cerebral hyponatremia Expected: 11/28/2022 (Approximate), Expires: [address] [place] [address] Work Phone: Comment on above:Expected: 11/28/2022 (Approximate), Expires: 10/04/2023Start: 09-21-2022 End: 70-51-3087MNE W Auto Differential panel - BloodCBC + DIFF Lab Routine Primary hypercoagulable state (HCC) 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, old, speech/language deficit Expected: 09/21/2022 (Approximate), Expires: 07/28/2023[facility] Work Phone: Comment on above:Expected: 09/21/2022 (Approximate), Expires: 07/28/2023Start: 09-21-2022 End: 10-36-9618Upfsijxxm (Vitamin B12) [Mass/volume] in Serum or PlasmaVITAMIN B12 BLOOD Lab Routine Primary hypercoagulable state (HCC) 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, old, speech/language deficit Expected: 09/21/2022 (Approximate), Expires: 07/28/2023[facility] Work Phone: Comment on above:Expected: 09/21/2022 (Approximate), Expires: 07/28/2023Start: 09-21-2022 End: 26-26-8940Mauhawduagexd metabolic 2000 panel - Serum or PlasmaCOMP METABOLIC PANEL Lab Routine Primary hypercoagulable state (HCC) 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, old, speech/language deficit Expected: 09/21/2022 (Approximate), Expires: 07/28/2023[facility] Work Phone: Comment on above:Expected: 09/21/2022 (Approximate), Expires: 07/28/2023Start: 09-21-2022 End: 04-30-8673Junmjwjs [Mass/volume] in Serum or PlasmaFERRITIN BLD Lab Routine Primary hypercoagulable state (HCC) 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, old, speech/language deficit Expected: 09/21/2022 (Approximate), Expires: 07/28/2023[facility] Work Phone: Comment on above:Expected: 09/21/2022 (Approximate), Expires: 07/28/2023Start: 09-21-2022 End: 45-75-2906Rytgyc [Mass/volume] in Serum or PlasmaFOLATE SERUM Lab Routine Primary hypercoagulable state (HCC) 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, old, speech/language deficit Expected: 09/21/2022 (Approximate), Expires: 07/28/2023[facility] Work Phone: Comment on above:Expected: 09/21/2022 (Approximate), Expires: 07/28/2023Start: 09-21-2022 End: 55-55-0036Uyot and Iron binding capacity panel - Serum or PlasmaIRON + TIBC Lab Routine Primary hypercoagulable state (HCC) 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, old, speech/language deficit Expected: 09/21/2022 (Approximate), Expires: 07/28/2023[facility] Work Phone: Comment on above:Expected: 09/21/2022 (Approximate), Expires: 07/28/2023Start: 98-99-9809XIUEUSGXLS ASSESSMENTDEPRESSION ASSESSMENT [facility]: 01-30-2022 End: 89-53-3307Hervdurf [Mass/volume] in Serum or PlasmaFERRITIN BLD Lab Routine Anemia, unspecified type Expected: 01/30/2022, Expires: 01/30/2023[facility] Work Phone: Comment on above:Expected: 01/30/2022, Expires: 01/30/2023Start: 01-30-2022 End: 88-52-2472Zttu and Iron binding capacity panel - Serum or PlasmaIRON + TIBC Lab Routine Anemia, unspecified type Expected: 01/30/2022, Expires: 01/30/2023 [facility] Work Phone: Comment on above:Expected: 01/30/2022, Expires: 01/30/2023Start: 97-30-7977Yuyleelmt vaccinationThe [facility]: 12-29-2021 End: 38-27-5116Khpxiwe encounter zvvdkuaad62/01/2022 [facility] MedStart: 33-91-8087CFDNYWMPDM ASSESSMENTDEPRESSION ASSESSMENTThe [facility]: 79-89-5709Gnuhm depression screening assessmentDEPRESSION SCREENINGThe [facility]: 12-04-2020 Screening for malignant neoplasm of cervixCervical Cancer ScreeningThe [facility]: 29-09-9524Mgdokujq screenDiabetes [facility] Start: 04-96-6353WNL TESTINGHPV TESTINGThe [facility]: 10-22-2015 [facility]ening [facility] malignant ne[facility]Start: 95-52-2423IQA Vaccine (1 - 3-dose SCDM series)HPV Vaccine (1 - 3-dose SCDM series)[facility]: 99-70-3176KMC Vaccines (1 - 3-dose SCDM series)HPV Vaccines (1 - 3-dose SCDM series)[facility]: 13-57-0804Xafwbyrxx for malignant neoplasm of cervixPap smearWELLMONT HEALTH SYSTEMStart: 2004 DTaP,Tdap and Td Vaccines (1 - Tdap)DTaP,Tdap and Td Vaccines (1 - Tdap) [facility]: 16-04-0718Abkfqlnrq B Vaccine (1 of 3 - 19+ 3-dose series)Hepatitis B Vaccine (1 of 3 - 19+ 3-dose series)[facility]: 92-31-3634Bdtkmdtyi B Vaccines (1 of 3 - 19+ 3-dose series)Hepatitis B Vaccines (1 of 3 - 19+ 3-dose series)[facility] HealthcareStart: 50-63-0976Bndqm BMI Follow Up PlanAdult BMI Follow Up PlanFormerly [facility], [facility]art: 95-16-4623Skobg BMI ScreeningAdult BMI ScreeningFormerly [facility], [facility]: 94-58-6934Vfkmpfv ScreeningAnxiety ScreeningThe [facility]: 17-47-4760Msyufdkunr Screening Depression ScreeningThe [facility]: 94-00-4455PMHLLCHKB C SCREENING HEPATITIS C SCREENINGThe [facility]: 05-09-6285Qsmlzjjqa C screeningWELLMONT HEALTH SYSTEMStart: 60-42-9866PGA SCREENINGHIV SCREENINGLouis [facility] Start: 17-18-0258AQV screeningHIV ScreeningThe [facility]: 1998 History of varicella vaccinationVaricella Vaccines (1 of 2 - 13+ 2-dose series) [facility] CenterStart: 94-96-6268Ntunzutobu ScreenDepression ScreenBON [facility] Hospitalart: 90-44-2322Blnvgqhkrt ScreeningDepression ScreeningFormerly [facility], [facility]: 74-68-1965Pkeqoyy ScreeningTobacco ScreeningFormerly [facility], [facility]: 17-32-8295ISeJ/Tdap/Td Vaccines (1 - Tdap)DTaP/Tdap/Td Vaccines (1 - Tdap)[facility] CenterStart: 21-44-3987ASAMT-19 VACCINE (#1)COVID-19 VACCINE (#1)[facility]: 19-97-6974MMLSZ-19 VACCINE (1)COVID-19 VACCINE (1) [facility]: 86-17-7389QOR Vaccines (1 of 1 - Standard series)MMR Vaccines (1 of 1 - Standard series)[facility] CenterStart: 25-59-2188Ypgerwfgc vaccine (1 of 2 - 2-dose childhood series)Varicella vaccine (1 of 2 - 2-dose childhood series)[facility]: 39-74-3778XCDLP-19 Vaccine (#1) COVID-19 Vaccine (#1)[facility]: 40-26-3951DNNRJEMUN B (1 of 3 - 3-dose series)HEPATITIS B (1 of 3 - 3-dose series)[facility]: 94-47-7190Vbikwkupu B Vaccine (1 of 3 - 3-dose series)Hepatitis B Vaccine (1 of 3 - 3-dose series)[facility] End: 46-02-8299Dgfny Fetoprotein, [facility] Work Phone: comment on above:Once for 1 Occurrences starting 11/21/2021 until 11/21/2021 End: 18-81-3964Pmkgkpsadua Ab, HEp-2 Substrate, S (NASEEM by IFA)Antinuclear Ab, HEp-2 Substrate, S (NASEEM by IFA) Lab Routine Antiphospholipid syndrome Antiphospholipid syndrome complicating , antepartum History of CVA (cerebrovascular accident) 1 Occurrences starting 02/16/2025 until 02/16/2026 [facility] Work Phone: comment on above:1 Occurrences starting 02/16/2025 until 6Bacteria identified in Urine by CultureUrine culture Microbiology Routine Missed menses Ordered: 04/04/2024[facility] HealthcareComment on above:Ordered: 4Bacteria identified in Urine by CultureUrine culture Microbiology Routine Missed menses Ordered: 10/02/2024[facility] HealthcareComment on above:Ordered: 10/02/2024 End: 63-88-3719BWK W Auto Differential panel - BloodCBC + DIFF Lab Routine Primary hypercoagulable state (HCC) CVA, old, 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[facility]) Every 2 months for 6 Occurrences starting 01/30/2022 until 01/30/2023[facility] Work Phone: Comment on above:Every 2 months for 6 Occurrences starting 01/30/2022 until 01/30/2023BC W Auto Differential panel - BloodCBC and differential Lab Routine Missed menses , unspecified gestational age Ordered: 04/04/2024[facility] HealthcareComment on above:Ordered: 04/04/2024BC W Auto Differential panel - BloodCBC and differential Lab Routine Missed menses , unspecified gestational age Ordered: 10/02/2024[facility] HealthcareComment on above:Ordered: 10/02/2024BC W Auto Differential panel - BloodCBC and differential Lab Routine 28 weeks gestation of ([facility]) Ordered: 02/09/2025[facility] Work Phone: comment on above:Ordered: 02/09/2025HLAMYDIA TRACHOMATIS (GENITO/STI)CHLAMYDIA TRACHOMATIS (GENITO/STI) Lab Routine Vaginal bleeding Vaginal discharge Ordered: 06/23/2024[facility] HealthcareComment on above: Ordered: 06/23/2024HLAMYDIA TRACHOMATIS (GENITO/STI)CHLAMYDIA TRACHOMATIS (GENITO/STI) Lab Routine Vaginal discharge Ordered: 11/20/2024[facility] Healthcare Comment on above:Ordered: 11/20/2024 End: 13-96-5053Csrbymbpby profile (C3 AND C4)Complement profile (C3 AND C4) Lab Routine Antiphospholipid syndrome Antiphospholipid syndrome complicating , antepartum History of CVA (cerebrovascular accident) 1 Occurrences starting 02/16/2025 until 02/16/2026[facility] SystemComment on above:1 Occurrences starting 02/16/2025 until 02/16/2026 End: 55-54-9884Lkfynaghrqcnz metabolic 2000 panel - Serum or PlasmaCOMP METABOLIC PANEL Lab Routine Primary hypercoagulable state (HCC) CVA, old, 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) Every 2 months for 6 Occurrences starting 01/30/2022 until 01/30/2023[facility] Work Phone: Comment on above:Every 2 months for 6 Occurrences starting 01/30/2022 until 01/30/2023 End: 88-92-2561ALB double-stranded (dsDNA) Abs by Crithidia luciliae IFADNA double-stranded (dsDNA) Abs by Crithidia luciliae IFA Lab Routine Antiphospholipid syndrome Antiphospholipid syndrome complicating , antepartum History of CVA (cerebrovascular accident) 1 Occurrences starting 02/16/2025 until 02/16/2026[facility] SystemComment on above:1 Occurrences starting 02/16/2025 until 02/16/2026 End: 79-28-1276RJG PanelENA Panel Lab Routine Antiphospholipid syndrome Antiphospholipid syndrome complicating , antepartum History of CVA (cerebrovascular accident) 1 Occurrences starting 02/16/2025 until 02/16/2026 [facility] SystemComment on above:1 Occurrences starting 02/16/2025 until 02/16/2026Hemoglobin A1c/Hemoglobin.total in BloodHemoglobin A1c Lab Routine Missed menses , unspecified gestational age Ordered: 04/04/2024[facility] HealthcareComment on above:Ordered: 04/04/2024Hemoglobin A1c/Hemoglobin.total in BloodHemoglobin A1c Lab Routine Missed menses , unspecified gestational age Ordered: 10/02/2024[facility] HealthcareComment on above:Ordered: 10/02/2024Hepatitis B virus surface Ag [Presence] in Serum or Plasma by ImmunoassayHepatitis B surface antigen Lab Routine Missed menses , unspecified gestational age Ordered: 04/04/2024[facility] HealthcareComment on above: Ordered: 04/04/2024Hepatitis B virus surface Ag [Presence] in Serum or Plasma by ImmunoassayHepatitis B surface antigen Lab Routine Missed menses , unspecified gestational age Ordered: 10/02/2024[facility] HealthcareComment on above: Ordered: 10/02/2024Hepatitis C virus Ab [Presence] in Serum or Plasma by ImmunoassayHepatitis C antibody Lab Routine Missed menses , unspecified gestational age Ordered: 04/04/2024[facility] HealthcareComment on above:Ordered: 04/04/2024Hepatitis C virus Ab [Presence] in Serum or Plasma by Immunoassay Hepatitis C antibody Lab Routine Missed menses , unspecified gestational age Ordered: 10/02/2024[facility] HealthcareComment on above:Ordered: 10/02/2024HIV-1/HIV-2 antigen/antibody combination immunoassayHIV-1 and HIV-2 antibodies Lab Routine Missed menses , unspecified gestational age Ordered: 04/04/2024[facility] HealthcareComment on above:Ordered: 04/04/2024 HIV-1/HIV-2 antigen/antibody combination immunoassayHIV-1 and HIV-2 antibodies Lab Routine Missed menses , unspecified gestational age Ordered: 10/02/2024[facility] HealthcareComment on above:Ordered: 10/02/2024Neisseria gonorrhoeae DNA [Presence] in Unspecified specimen by LELO with probe detection Neisseria gonorrhea DNA probe, direct Lab Routine Vaginal bleeding Vaginal discharge Ordered: 06/23/2024[facility] HealthcareComment on above:Ordered: 06/23/2024 Neisseria gonorrhoeae DNA [Presence] in Unspecified specimen by LLEO with probe detectionNeisseria gonorrhea DNA probe, direct Lab Routine Vaginal discharge Ordered: 11/20/2024[facility] HealthcareComment on above:Ordered: 11/20/2024Reagin Ab [Presence] in Serum by RPRRPR Lab Routine Missed menses , unspecified gestational age Ordered: 04/04/2024[facility] HealthcareComment on above:Ordered: 04/04/2024eagin Ab [Presence] in Serum by RPRRPR Lab Routine Missed menses , unspecified gestational age Ordered: 10/02/2024[facility] HealthcareComment on above:Ordered: 10/02/2024Rubella antibody, IgGRubella antibody, IgG Lab Routine Missed menses , unspecified gestational age Ordered: 04/04/2024 [facility] HealthcareComment on above:Ordered: 04/04/2024ubella antibody, IgGRubella antibody, IgG Lab Routine Missed menses , unspecified gestational age Ordered: 10/02/2024[facility] HealthcareComment on above:Ordered: 10/02/2024 SURESWAB(R) ADVANCED VAGINITIS PLUS, TMASURESWAB(R) ADVANCED VAGINITIS PLUS, TMA Pathology and Cytology Routine Vaginal bleeding Vaginal discharge Ordered: 06/23/2024[facility] Work Phone: comment on above:Ordered: 06/23/2024SURESWAB(R) ADVANCED VAGINITIS PLUS, TMASURESWAB(R) ADVANCED VAGINITIS PLUS, TMA Pathology and Cytology Routine Vaginal discharge Ordered: 11/20/2024[facility] Work Phone: comment on above:Ordered: 11/20/2024Thyrotropin [Units/volume] in Serum or PlasmaTSH Lab Routine Hypothyroidism (acquired) ([facility]) Ordered: 04/04/2024[facility] HealthcareComment on above:Ordered: 04/04/2024 Thyrotropin [Units/volume] in Serum or PlasmaTSH Lab Routine History of thyroid disease Ordered: 06/02/2024[facility] Work Phone: comment on above:Ordered: 06/02/2024Thyrotropin [Units/volume] in Serum or PlasmaTSH Lab Routine Thyroid disease ([facility]/HCC) Ordered: 10/02/2024[facility] HealthcareComment on above:Ordered: 10/02/2024 Thyrotropin [Units/volume] in Serum or PlasmaTSH Lab Routine Second trimester ([facility]) Thyroid disease Ordered: 12/11/2024[facility] Work Phone: comment on above:Ordered: 12/11/2024UA DIP, URINE (POC)UA DIP, URINE (POC) Lab Routine Infective urethritis Ordered: 08/01/2021 [facility] Work Phone: Comment on above:Ordered: 08/01/2021Vitamin D 1,25 dihydroxyVitamin D 1,25 dihydroxy Lab Routine Low vitamin D level Ordered: 04/04/2024[facility] HealthcareComment on above:Ordered: 04/04/2024 End: 06-80-4818Cguiqld D 25 hydroxyVitamin D 25 hydroxy Lab Routine Insulin controlled gestational diabetes mellitus (GDM) in second trimester 1 Occurrences starting 12/03/2024 until 12/03/2025[facility] Work Phone: comment on above:1 Occurrences starting 12/03/2024 until 12/03/2025[facility] Immunizations Immunization DateImmunizationNotesCare ZvhgjaubIdwocqab10-35-9999vkuvertld virus vaccine, unspecified formulationKristofer Calix MD Work Phone: [facility] CenterLbjzqc39-36-6939igjpchr toxoid, reduced diphtheria toxoid, and acellular pertussis vaccine, adsorbedMa Sand Work Phone: [facility] CenterNEGATED: Highlighted row has not occurred!07-22-4974evvelffdh virus vaccine, unspecified formulationScott PRAVEEN [phone]-LnyrfAultman Or[facility] Hospital Primary CareNEGATED: Highlighted row has not occurred!02-04-1785iuemhffsy virus vaccine, unspecified formulationDERIK SIDEMICHELLE [phone]-SceqhAultman Orrville Hospital [facility] Presho Payers DatePayer CategoryPayerPolicy [id number] 2021Medicaid [place] [employer] [id number] 2020-Present [phone] [address] [place] [address] [id number] 2021Medicaid [id number] 2.16.840.1.530860.3.57[id number] 2.16.840.1.026405.3.57[id number] 2.16.840.1.750624.3.57[id number] 2.16.840.1.477781.3.57[id number] 2.16.840.1.927821.3.57[id number] 2.16840.1.506453.3.579.2.38075-94-8941Eujpddl9933382 2.16.840.1.681132.3.579.2.23887-17-3355Mxyyvep8004346 2.16.840.1.232571.3.579.2.24166-73-7307Ojustgv1314472 2.16.840.1.619686.3.579.2.59380-60-4121Fsfyykn9997890 2.16.840.1.274409.3.579.2.07505-25-3040Ivmfiur2132149 2.16.840.1.293924.3.579.2.89362-53-6688Jupgpaz2176054 2.16.840.1.487027.3.579.2.52858-71-7298Ehuumsp1206044 2.16.840.1.959970.3.579.2.65356-14-0460Bmltxvd0245253 2.16.840.1.857229.3.579.2.13089-72-7086Fawehpi1761057 2.16.840.1.968875.3.579.2.55002-71-9571Wnzybdu9987736 2.16840.1.541507.3.579.2.47444-20-6181Mssknml1890729 2.16840.1.503519.3.579.2.44232-66-6507Whqvise0573225 2.16840.1.331346.3.579.2.97921-09-2101Nbezhjl7961533 2.16840.1.483071.3.579.2.61563-75-2186Xkkfiyv7403562 2.840.1.012014.3.579.2.65374-43-6876Ibkmpxe0168723 2.840.1.991102.3.579.2.22007-92-4367Lshyvou5713281 2.840.1.097865.3.579.2.89456-27-1765Pruufak1032571 2.840.1.691818.3.579.2.38237-60-1334Zwgjkit1689056 2.840.1.861253.3.579.2.46505-60-9617Rrnkuoo3735132 2.840.1.614609.3.579.2.65483-48-2058Uybymxv0182892 2.16840.1.606196.3.579.2.74674-15-5762Gjzbblq8462690 2.16840.1.501215.3.579.2.02049-13-1639Sfqnuut3497195 2.16840.1.003522.3.579.2.20945-81-0171Aqwknqw6155341 2.16840.1.281504.3.579.2.86620-67-4160Wpywfbt84417693 2.16840.1.677957.3.579.2.59253-19-2623Gfwjfze69318647 2.16840.1.592030.3.579.2.12766-47-9635Crlxnjn93594913 2.16840.1.656038.3.579.2.11708-77-4884Mbepunn46112181 2.840.1.699970.3.579.2.24094-52-1323Whoqiff86817021 2.840.1.750435.3.579.2.93459-28-4768Kyzoenv54613340 2.840.1.129294.3.579.2.94951-11-7244Ymikypn17915448 2.840.1.240671.3.579.2.59388-97-8484Nuogznz91030186 2.840.1.869375.3.579.2.86340-85-0352Urydkbd31905241 2.840.1.846897.3.579.2.78348-51-3861Gznrkkc70499600 2.840.1.257018.3.579.2.28488-20-3319Tojkjiu00818980 2.840.1.883631.3.579.2.64433-30-4721Tzwjoox68559470 2.840.1.858043.3.579.2.76270-06-0821Kqpkyua55759397 2.840.1.102030.3.579.2.95003-09-9937Azhilem97800944 2.16840.1.572639.3.579.2.82705-91-9741Irvawdj35203427 2.840.1.193300.3.579.2.59182-22-1300Cfhkjic86791746 2.16840.1.737984.3.579.2.46550-57-0926Qlbwqxx97665608 2.16840.1.421437.3.579.2.46523-99-6980Nofsssy47794063 2.0.1.916640.3.579.2.82584-29-0324Oduryjz94725658 2.0.1.732465.3.579.2.58920-30-8807Bgvyrlz30632444 2..1.591249.3.579.2.30825-44-3784Ydygwqz66147397 2..1.517968.3.579.2.16384-09-7743Iiuemxy06329766 2..1.224006.3.579.2.34612-89-1591Xxkxxyz98469836 2..1.984168.3.579.2.63254-57-1692Kduoadb11937569 2..1.445327.3.579.2.41185-95-6915Tvffipq53351948 2..1.267729.3.579.2.92429-71-9855Vafmjov35792281 2.0.1.581117.3.579.2.12996-07-8392Jnsjgnd90587627 2.0.1.830113.3.579.2.35824-24-2387Sdmglgo15422632 2.840.1.719607.3.579.2.52204-86-0363Tbnkjke28655029 2.0.1.423596.3.579.2.67079-49-8060Sqbjpqp14916727 2.16.840.1.619881.3.579.2.47888-41-5214Nucdcbm32430180 2.16840.1.643224.3.579.2.71297-83-9699Wroqxvj91383361 2.16.840.1.016499.3.579.2.72710-46-6539Iefgglv73917528 2.16840.1.665821.3.579.2.88894-35-6355Tbnugup40980841 2.16840.1.479198.3.579.2.28076-55-9245Nayalzx97823835 2.16840.1.210583.3.579.2.26530-93-8434Ynthrda36314401 2.16840.1.422317.3.579.2.88131-25-4339Whcrjib27010033 2.16840.1.216730.3.579.2.13881-82-9178Ufiefon69392173 2.840.1.860542.3.579.2.29459-21-4496Oguumrv81880632 2.16840.1.345368.3.579.2.25163-74-0733Anxwvof44325988 2.840.1.877285.3.579.2.83918-85-0200Caltqkq06804937 2.16840.1.133744.3.579.2.57007-98-4018Duqnygg02427824 2.16840.1.009917.3.579.2.05633-88-9678Xspoooa87631946 2.16840.1.725848.3.579.2.36431-29-2094Xwvbxgs76818652 2.16840.1.125674.3.579.2.95941-23-5936Gjkjdrx009896205 2.0.1.717048.3.579.2.097368-18-7350Fbykzew523175297 2.840.1.221169.3.579.2.836712-23-1787Nasuclg812171411 2.0.1.830544.3.579.2.565812-61-9725Eupzfbz35468901 2.0.1.746146.3.579.2.63657-18-2407Aezwgjy709933739 2..1.052169.3.579.2.667456-50-1039Poilosc841323271 2..1.948340.3.579.[id number] 2..1.345742.3.579.[id number] 2.0.1.329942.3.57[id number] 2..1.930172.3.57[id number] 2..1.675806.3.579.[id number] 2.0.1.945197.3.57[id number] 2.0.1.295897.3.579.2.1[id number] 2.0.1.333316.3.57[id number] 2.0.1.302508.3.57[id number] 2.16.840.1.893500.3.57[id number] 2.16.840.1.152591.3.579.[id number] 2.16.840.1.397386.3.579.2.[id number] 2.16.840.1.870059.3.579.[id number] 2.16.840.1.673238.3.579.[id number] 2.16.840.1.671424.3.579.[id number] 2.16.840.1.479991.3.579.2.4[id number] 2.16.840.1.174104.3.57[id number] 2.16.840.1.295468.3.57[id number] 2.16.840.1.081302.3.579.[id number] 2.840.1.227595.3.579.2.098880-47-4522Kdqhawd1518355 2.16840.1.807892.3.579.2.210333-64-4458Wdly-[id number] [id number] 1.2.840.674658.1.13.239.2.7.3.069434.315Unknown [id number] 2.16.840.1.297852.3.579.2.593 Social History DateTypeDetailFacilityStart: 09-10-2017 End: 24-70-9928Ngsolxe smoking status NHISNever smoked tobaccoLouis Stokes [facility] Medical Center Start: 09-10-2017 End: 25-04-9507Dfrowaq use and exposureSmokeless tobacco non-userThe Christ Hospitaltart: 08-01-2021 End: 57-76-0537Difmmhm intakeCurrent non-drinker of alcohol (finding)[facility]: 25-64-0958Lqd Assigned At BirthNot on fileThe Christ Hospitaltart: 07-22-2021 End: 91-57-3248Wsmffsch to SARS-CoV-2 (event)Not sureThe Christ Hospitaltart: 05-28-2017 End: 45-19-4492Fldcklz smoking statusKindred Hospital Dayton Start: 07-27-2022 End: 77-37-7434Twt Assigned At [facility] Start: 11-21-2021 End: 73-58-9994Dwrlpyc intakeEx-drinker (finding)[facility] LumiFoldCLEVELAND CLINIC [facility] Work Phone: start: 17-98-5751Eulutwr SDOH Alcohol Comment occasionallyWELLMONT HEALTH SYSTEM Work Phone: start: 06-16-1663JuzkgafpJBH [facility] Work Phone: start: 07-27-2022 End: 46-02-9442Dzdpinv of Social functionThe Christ Hospitaltart: 04-04-2024 End: 66-34-1629Rbndpaxzt beverage intakeLifetime non-drinker (finding)[facility] HealthcareTobacco smoking status NHISUnknown if ever smokedWright-Pat[facility] Work Phone: Start: 11-27-2018 End: 79-27-5621JgiVcofoa (finding)[facility]: 16-16-2464Wkn Assigned At [facility] Medical Equipment Procedure CodeEquipment CodeEquipment Original TextEquipment IdentifierDates [id number]: 10-30-2024 End: each by In Vitro route Daily Use to check FSBS four times daily [id number]: 10-30-2024 End: 24-61-4403Fjg a new needle with each injection ( 1- 5 times per day) [id number]: 12-03-2024 Functional Status WpmkAwydqxmwexBumvvaCpwxxfnw37-24-7042Ukqpkuj Health Questionnaire 2 item (PHQ- 2) [Reported][facility] CenterCumsnwbhbw08-70-7224Oytqktbyia StatusN/[facility]02-20-2025Functional StatusN/[facility] Family Medicine Fcsbm48-80-9906Rqsghkkelg StatusN/[facility]10-08-2024Functional StatusN/[facility] Primary Dkbl54-56-9866Ovexjwniko StatusN/[facility] Care 21-79-1627Sqxilsfexm StatusN/[facility]06-25-2024 Functional StatusN/[facility] Jkfi94-72-6999Hdfbwlkjbu StatusN/[facility]04-05-2024Functional Status N/[facility]01-26-2024Functional StatusN/[facility] Primary Aaud27-85-0361Tsqnhksmuc StatusN/[facility] Primary Btsv81-04-6281Lxbdppyqdb StatusN/[facility] Primary Care Clinical Notes 07-26-2019 to 02-23-2025 Note Date & MfnlJrktQexrrwti51-84-8536 History of Present illness Narrative* Rosi Murray LPN - 02/23/2025 9:00 AM EDT Reason for Appointment: Patient ID: Sanna Rendon is a 39 y.o. female who presents for Routine Visit Patient presents today for Return OB appointment. MEDICATIONS Current Outpatient Medications Medication Instructions Alcohol Swabs (Alcohol Prep Pad) 70 % pads 1 Pad, Topical, Daily, Use four times daily to check FSBS. Blood Glucose Monitoring Suppl (-ConXtech Glucometer) w/Device kit 1 kit, Does not [...] Date Noted 32 weeks gestation of ([facility]) 11/28/2019 Abdominal pain 06/12/2023 Acute bronchitis due to infection 06/12/2023 Acute on chronic vesicular eczema of hands and feet 11/15/2023 Anemia complicating childbirth ([facility]) 01/16/2020 Anticoagulant long-term use 02/22/2020 Antiphospholipid antibody positive 09/10/2017 Antiphospholipid antibody syndrome ([facility]) 07/07/2019 Anxiety 06/12/2023 Blood pressure elevated without history of HTN 11/15/2023 BMI 37.0-37.9, adult 11/15/2023 Cerebral infarction, unspecified ([facility]) 05/16/2019 Cerebrovascular accident (CVA) due to stenosis of middle cerebral artery ([facility]) 02/22/2020 Cervicalgia 02/05/2019 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 ([facility]) 01/08/2020 Coagulation defect, unspecified ([facility]) 02/05/2019 Cold intolerance 11/15/2023 Deficiency of other specified B group vitamins 05/16/2019 Deviated septum 11/15/2023 Dizziness and giddiness 02/05/2019 Dry mouth 11/15/2023 Dysfunction of eustachian tube 06/12/2023 Dyspnea 06/12/2023 Elevated blood pressure reading 11/15/2023 Encounter for supervision of normal , unspecified, first trimester ([facility]) 05/29/2019 Environmental allergies 11/15/2023 Fatigue 12/29/2016 First degree perineal laceration during delivery ([facility]) 01/16/2020 Frequency of micturition 02/19/2019 Genitourinary symptoms 08/19/2021 Gestational diabetes mellitus (GDM), antepartum ([facility]) 01/26/2022 H/O: hypothyroidism 11/15/2023 Hematochezia [...] 01/16/2020 Irregular uterine bleeding 11/15/2023 problem ([facility]) 06/12/2023 Less than 8 weeks gestation of ([facility]) 06/05/2019 longterm (current) use of 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/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 02/05/2019 Migraine without aura and without status migrainosus, not intractable 09/12/2017 Morbid obesity ([facility]) 11/15/2023 Muscle fasciculation 08/19/2021 Nasal polyps 11/15/2023 Non-smoker 11/15/2023 NEETA (obstructive sleep apnea) 11/15/2023 Other acute postprocedural pain 02/03/2019 Other general symptoms and signs 10/28/2019 Other immediate hemorrhage ([facility]) 01/16/2020 Other specified noninflammatory disorders of vagina 02/21/2019 Pain in joint 12/29/2016 Palpitations 08/26/2019 Paresthesia of bilateral legs 11/15/2023 Pelvic and perineal pain 02/01/2019 Personal history of urinary (tract) infections 01/16/2020 Pre-diabetes 11/15/2023 Primary hypercoagulable state ([facility]) 08/01/2022 Pruritus, unspecified 01/02/2020 Psychogenic hyperventilation 06/12/2023 Raised antibody titer 09/25/2017 Right lower quadrant pain 11/15/2023 Right otitis externa 11/15/2023 Salivary gland swelling 11/15/2023 Single live ([facility]) 01/15/2020 Snoring 11/15/2023 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) 12/30/2019 Suspected severe acute respiratory syndrome coronavirus 2 (SARS-CoV-2) infection 06/12/2023 SVT (supraventricular tachycardia) ([facility]) 08/26/2019 Syncope and collapse 06/03/2018 Other bacterial infections of unspecified site 06/27/2019 Thrombocytopenia, unspecified 11/20/2019 Hypoglycemia 06/12/2023 Unspecified condition associated with female genital organs and menstrual cycle 05/09/2019 Unspecified ovarian cyst, right side 02/06/2019 Urinary tract infection 10/16/2019 Referred otalgia of right ear 11/19/2023 LPRD (laryngopharyngeal reflux disease) 11/19/2023 H/O loss 01/05/2025 Multigravida of advanced maternal age in second trimester ([facility]) 01/05/2025 Thyroid disease 01/05/2025 Resolved Ambulatory Problems [...] drainage of cyst WISDOM TOOTH EXTRACTION 2007 [place] teeth REVIEW OF SYSTEMS Review of Systems: [...] nursing note reviewed. Exam conducted with a metal burrer present. Vitals: Estimated body mass index is 33.98 kg/m as calculated from the following: Height as of 11/19/23: 5' 6 . Weight as of this encounter: 210 lb 8 oz. BP: 116/72 Patient's last menstrual period was 07/28/2024. Assessment/Plan ICD-10-CM 1. Third trimester ([facility]) Z34.93 2. 30 weeks gestation of ([facility]) Z3A.30 POCT urinalysis dipstick manually [...] of: Wilton Herrmann DO documented in this encounterSaint John's Breech Regional Medical CenterZqbmhgdyfg98-70-8899 History of Present illness Narrative* Sam Callahan MD MPH - 02/16/2025 1:45 PM EDT Images from the original note were not included. ADULT RHEUMATOLOGY CLINIC NOTE [id number] [address] Patient Name: Sanna Rendon Subjective Reason for [...] following with two outside specialists (Neurology at [facility] and Hematology at [facility]) for management of her APS. [...] health issues unclear exact diagnoses Note from [facility] Provider (Dr. Noyola): Recent note from Neurologist: [...] sugar 4 times daily . blood-glucose sensor (Mirabilis MedicaSTYLE JENIFER 3 PLUS SENSOR) device Wear for [...] age) multigravida 35+ Antiphospholipid syndrome Hypothyroid Stroke ([facility]) Gestational diabetes mellitus (GDM) in second trimester [...] Anemia Antiphospholipid antibody syndrome Cerebral infarction, unspecified ([facility]) 05/16/2019 Hypothyroid Migraine without aura and without status migrainosus, not intractable 09/12/2017 Stroke ([facility]) 2016 reviewed. Social History Social History Narrative [...] is currently no information documented [facility] the [facility]. Go to the Rheumatology activity andcomplete the [...] weeks . She is currently following with [facility] for her , neurology through the [place] system, and hematology through [facility]. Based on extensive review of [...] Expiration Date: 02/16/2026 Release to patient via [employer] Integrated Mediat?: Immediate [1] Complement profile (C3 AND C4) Standing Status: Future Expiration Date: 02/16/2026 Release to patient via Socialscopehart?: Immediate [1] DNA double-stranded (dsDNA) Abs by Rene angel IFA Standing Status: Future Expiration Date: 02/16/2026 Release to patient via Socialscopehart?: Immediate [1] KELLEN Panel Standing Status: Future Expiration Date: 02/16/2026 Release to patient via Socialscopehart?: Immediate [1] Treatment Plan: -if the patient [...] notes to her other specialists including her [facility] physician, neurologist, and hematology provider Health Maintenance: -The patient should continue to follow with their PCP for age and risk factor appropriate cancer screening and immunizations. Follow-up: -4-6 weeks, video visit is OK Sam Callahan MD, MPH [facility] [address] [place] [address] Total xnzt-lv-gzxa time was 55 minutes with more than [...] you for your understanding. documented in this [facility]3]10-14-2025 Miscellaneous Notes* Telephone Encounter - PRISCILLA Sutherland [...] in blood sugars weekly. documented in this [facility]3]10-14-2025 Telephone encounter Note* Telephone Encounter - PRISCILLA [...] Continue to send in blood sugars weekly. [employer] Work Phone: [phone] 280-720310-13-2025 History of Present illness Narrative* Rosi Murray, DEB - 02/09/2025 10:30 AM [...] Date Noted 32 weeks gestation of ([facility]) 11/28/2019 Abdominal pain 06/12/2023 Acute bronchitis due to infection 06/12/2023 Acute on chronic vesicular eczema of hands and feet 11/15/2023 Anemia complicating childbirth ([facility]) 01/16/2020 Anticoagulant long-term use 02/22/2020 Antiphospholipid antibody positive 09/10/2017 Antiphospholipid antibody syndrome ([facility]) 07/07/2019 Anxiety 06/12/2023 Blood pressure elevated without history of HTN 11/15/2023 BMI 37.0-37.9, adult 11/15/2023 Cerebral infarction, unspecified ([facility]) 05/16/2019 Cerebrovascular accident (CVA) due to stenosis of middle cerebral artery ([facility]) 02/22/2020 Cervicalgia 02/05/2019 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 ([facility]) 01/08/2020 Coagulation defect, unspecified ([facility]) 02/05/2019 Cold intolerance 11/15/2023 Deficiency of other specified B group vitamins 05/16/2019 Deviated septum 11/15/2023 Dizziness and giddiness 02/05/2019 Dry mouth 11/15/2023 Dysfunction of eustachian tube 06/12/2023 Dyspnea 06/12/2023 Elevated blood pressure reading 11/15/2023 Encounter for supervision of normal , unspecified, first trimester ([facility]) 05/29/2019 Environmental allergies 11/15/2023 Fatigue 12/29/2016 First degree perineal laceration during delivery ([facility]) 01/16/2020 Frequency of micturition 02/19/2019 Genitourinary symptoms 08/19/2021 Gestational diabetes mellitus (GDM), antepartum ([facility]) 01/26/2022 H/O: hypothyroidism 11/15/2023 Hematochezia [...] 01/16/2020 Irregular uterine bleeding 11/15/2023 problem ([facility]) 06/12/2023 Less than 8 weeks gestation of ([facility]) 06/05/2019 longterm (current) use of 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/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 02/05/2019 Migraine without aura and without status migrainosus, not intractable 09/12/2017 Morbid obesity ([facility]) 11/15/2023 Muscle fasciculation 08/19/2021 Nasal polyps 11/15/2023 Non-smoker 11/15/2023 NEETA (obstructive sleep apnea) 11/15/2023 Other acute postprocedural pain 02/03/2019 Other general symptoms and signs 10/28/2019 Other immediate hemorrhage ([facility]) 01/16/2020 Other specified noninflammatory disorders of vagina 02/21/2019 Pain in joint 12/29/2016 Palpitations 08/26/2019 Paresthesia of bilateral legs 11/15/2023 Pelvic and perineal pain 02/01/2019 Personal history of urinary (tract) infections 01/16/2020 Pre-diabetes 11/15/2023 Primary hypercoagulable state ([facility]) 08/01/2022 Pruritus, unspecified 01/02/2020 Psychogenic hyperventilation 06/12/2023 Raised antibody titer 09/25/2017 Right lower quadrant pain 11/15/2023 Right otitis externa 11/15/2023 Salivary gland swelling 11/15/2023 Single live ([facility]) 01/15/2020 Snoring 11/15/2023 Speech and [...] drainage of cyst WISDOM TOOTH EXTRACTION 2007 [place] teeth REVIEW OF SYSTEMS Review of Systems: [...] nursing note reviewed. Exam conducted with a metal burrer present. Vitals: Estimated body mass index is 34.12 kg/m as calculated from the following: Height as of 11/19/23: 5' 6 . Weight as of this encounter: 211 lb 6.4 oz. BP: 124/76 Patient's last menstrual period was 07/28/2024. ASSESSMENT & PLAN ICD-10-CM 1. Third trimester ([facility]) Z34.93 2. 28 weeks gestation of ([facility]) Z3A.28 CBC and differential POCT [...] givenorders and they were also faxed to [facility] FBC and H Scheduling. Patient to return to clinic in 2 weeks for routine OB appointment. Documented by Rosi Murray LPN on behalf of: Wilton Herrmann DO documented in this encounterSaint John's Breech Regional Medical [id number] History of Present illness Narrative* Mukul Noyola MD - 02/06/2025 2:00 PM EDT Images from the original note were not included. Video Visit via Real-time Synchronous Audiovisual Provider Location: [facility]ER[facility]- MEDICINE AT [facility] [address] [facility] [facility] [id number] Patient Location: Other Home Patient Location Engineer Steam: None Video Visit Consent Statement: I discussed [...] that there are some limitations compared to xcsv-ps-qqle evaluations. We elected to proceed. [facility] Maternal- Medicine Office Note Reason For [...] will be undergoing genetic testing through the airborne operations manager. There is family history of hypospadias and [...] Anemia Antiphospholipid antibody syndrome Cerebral infarction, unspecified ([facility]) 05/16/2019 Hypothyroid Migraine without aura and without status migrainosus, not intractable 09/12/2017 Stroke ([facility]) 2016 PSHIST: Past Surgical History: Procedure Laterality [...] to continue to send blood glucoses to [facility] to review - continue Lovenox 40 mg [...] Mukul Noyola MD, FACOG (she/hers) Maternal- Medicine [facility] [address] [place] [address] This document was created with [employer] technology. Though I make every effort to review the dictation as it is transcribed, on occasion the spoken word can be misinterpreted by the technology leading to inappropriate words, phrases, or sentences. This note is addressed to the requesting provider as a consultation for clinical guidance. Specificmedical abbreviations are occasionally used and those are generally approved by the [place]?Board of?Obstetrics and?Gynecology?as well as?Elizabeth guzman abbreviations. The above plan of care was based solely on the diagnoses for which a consultation was requested. ?More frequent testing may be indicated based on her other medical/obstetrical conditions. The management of other or medical conditions is beyond the scope of requested consultation and will c ontinue to be followed by the primary milling machine set up operator or primary care provider. Note to patient: [...] opinion of the practitioner. documented in this encounterGrant HospitalPrivateGriffe [id number] NoteEchocardiology Procedure Exam Date/Time Accession # Ordering Dr. Connolly Transthoracic 02/03/2025 10:00 EDT [id number] Wilton HERRMANN DO Complete CPT code 27412 [id number] Reason for Exam (Echo Transthoracic Complete) Dizziness and giddiness E07.9, O09.522 [place] [address] Adult Echocardiogram Report Name: JUSTICESANNA ROOT Study Date: 02/03/2025 08:09 AM BP: 116/76 mmHg Patient Location: FT CAR F HR: 84 : 1985 Gender: Female Height: 66 in Age: 39 yrs Ethnicity: T Weight: 205 lb Reason For Study: Dizziness and giddiness E07.9, O09.522 R42 BSA: 2.0 m2 History: 27 weeks , Thyroid disease, Gestational diabetes, CVA Ordering Physician: Wilton HERRMANN Referring Physician: Wilton HERRMANN Performed By: Marry Peng [facility] Interpretation Summary There is Trace mitral [...] Signed by: Merrick Watkins MD Transcribed by: [facility] Technologist: [facility]09-22-2025 History of Present illness Narrative* Celia Keith STONEMASON - 01/19/2025 9:00 AM EDT Reason for [...] Date Noted 32 weeks gestation of ([facility]) 11/28/2019 Abdominal pain 06/12/2023 Acute bronchitis due to infection 06/12/2023 Acute on chronic vesicular eczema of hands and feet 11/15/2023 Anemia complicating childbirth ([facility]) 01/16/2020 Anticoagulant long-term use 02/22/2020 Antiphospholipid antibody positive 09/10/2017 Antiphospholipid antibody syndrome ([facility]) 07/07/2019 Anxiety 06/12/2023 Blood pressure elevated without history of HTN 11/15/2023 BMI 37.0-37.9, adult 11/15/2023 Cerebral infarction, unspecified ([facility]) 05/16/2019 Cerebrovascular accident (CVA) due to stenosis of middle cerebral artery ([facility]) 02/22/2020 Cervicalgia 02/05/2019 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 ([facility]) 01/08/2020 Coagulation defect, unspecified ([facility]) 02/05/2019 Cold intolerance 11/15/2023 Deficiency of other specified B group vitamins 05/16/2019 Deviated septum 11/15/2023 Dizziness and giddiness 02/05/2019 Dry mouth 11/15/2023 Dysfunction of eustachian tube 06/12/2023 Dyspnea 06/12/2023 Elevated blood pressure reading 11/15/2023 Encounter for supervision of normal , unspecified, first trimester ([facility]) 05/29/2019 Environmental allergies 11/15/2023 Fatigue 12/29/2016 First degree perineal laceration during delivery ([facility]) 01/16/2020 Frequency of micturition 02/19/2019 Genitourinary symptoms 08/19/2021 Gestational diabetes mellitus (GDM), antepartum ([facility]) 01/26/2022 H/O: hypothyroidism 11/15/2023 Hematochezia [...] 01/16/2020 Irregular uterine bleeding 11/15/2023 problem ([facility]) 06/12/2023 Less than 8 weeks gestation of ([facility]) 06/05/2019 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 02/05/2019 Migraine without aura and without status migrainosus, not intractable 09/12/2017 Morbid obesity ([facility]) 11/15/2023 Muscle fasciculation 08/19/2021 Nasal polyps 11/15/2023 Non-smoker 11/15/2023 NEETA (obstructive sleep apnea) 11/15/2023 Other acute postprocedural pain 02/03/2019 Other general symptoms and signs 10/28/2019 Other immediate hemorrhage ([facility]) 01/16/2020 Other specified noninflammatory disorders of vagina 02/21/2019 Pain in joint 12/29/2016 Palpitations 08/26/2019 Paresthesia of bilateral legs 11/15/2023 Pelvic and perineal pain 02/01/2019 Personal history of urinary (tract) infections 01/16/2020 Pre-diabetes 11/15/2023 Primary hypercoagulable state ([facility]) 08/01/2022 Pruritus, unspecified 01/02/2020 Psychogenic hyperventilation 06/12/2023 Raised antibody titer 09/25/2017 Right lower quadrant pain 11/15/2023 Right otitis externa 11/15/2023 Salivary gland swelling 11/15/2023 Single live ([facility]) 01/15/2020 Snoring 11/15/2023 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) 12/30/2019 Suspected severe acute respiratory syndrome coronavirus 2 (SARS-CoV-2) infection 06/12/2023 SVT (supraventricular tachycardia) ([facility]) 08/26/2019 Syncope and collapse 06/03/2018 Other bacterial infections of unspecified site 06/27/2019 Thrombocytopenia, unspecified 11/20/2019 Hypoglycemia 06/12/2023 Unspecified condition associated with female genital organs and menstrual cycle 05/09/2019 Unspecified ovarian cyst, right side 02/06/2019 Urinary tract infection 10/16/2019 Referred otalgia of right ear 11/19/2023 LPRD (laryngopharyngeal reflux disease) 11/19/2023 H/O loss 01/05/2025 Multigravida of advanced maternal age in second trimester ([facility]) 01/05/2025 Thyroid disease 01/05/2025 Resolved Ambulatory Problems Diagnosis Date Noted No Resolved Ambulatory Problems Past Medical History: Diagnosis Date AMA (advanced maternal age) multigravida 35+ ([facility]) Anemia Antiphospholipid syndrome ([facility]) Gestational diabetes ([facility]) Heartburn Hypothyroid Stroke (HCC) HISTORY [...] drainage of cyst WISDOM TOOTH EXTRACTION 2007 [place] teeth REVIEW OF SYSTEMS Review of Systems: [...] nursing note reviewed. Exam conducted with a metal burrer present. Vitals: Estimated body mass index is 34.14 kg/m as calculated from the following: Height as of 11/19/23: 5' 6 . Weight as of this encounter: 211 lb 8 oz. BP: 124/70 Patient's last menstrual period was 07/28/2024. ASSESSMENT & PLAN ICD-10-CM 1. Second trimester ([facility]) Z34.92 POCT urinalysis dipstick manually resulted 2. 25 weeks gestation of ([facility]) Z3A.25 3. Gestational diabetes mellitus (GDM), antepartum, gestational diabetes method of control unspecified ([facility]) O24.419 metFORMIN XR (Glucophage-XR) 500 MG 24 [...] to switch her Lovenox and Metformin to [facility] pharmacy. Growth ultrasound at28 weeks as well as NST and BPP at 28 weeks. Documented by Celia Keith NP on behalf of: Wilton Herrmann DO documented in this encounterSaint John's Breech Regional Medical [id number] History of Present illness Narrative* Roxana Mays PA-C - 01/13/2025 10:00 AM EDT Maternal- Medicine Consultation VIDEO Patient is present at home , provider present at [facility] HISTORY OF PRESENT ILLNESS: Sanna Rendon [...] more likely to fail compared to insulin. 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 Discussed her current diet and her [...] so she can have them done at [place] - Anatomy survey with MFM -followsup scheduled [...] by e-mail to: or by fax to: [phone] Roxana Mays PA-C Maternal- Medicine Office phone: [phone] Roxana Mays PA-C 01/13/25 1031 documented in this [facility]3]09-16-2025 Miscellaneous Notes* Medical Student - Mike Aquino [...] the legal medical record. documented in this [facility]3]09-16-2025 Progress note* Medical Student - Mike Aquino [...] a part of the legal medical record. [facility]09-12-2025 Miscellaneous Notes* Telephone Encounter - Mukul Noyola [...] answered. MUKUL NOYOLA MD documented in this encounterMercy Health [facility]09-12-2025 Telephone encounter Note* Telephone Encounter - Mukul [...] questions and concerns answered. MUKUL NOYOLA MD [facility]09-10-2025 Miscellaneous Notes* Telephone Encounter - Jacque Pat RN - 01/07/2025 10:29 AM EDT Book Critic called and spoke to patient yesterday to discuss a several topics. Book Critic asked if patient wanted another follow up cervical length. Patient declined. We also discussed her insulin dosage. Patient had not started her NPH insulin yet because her pharmacy did not notify her it was ready for pickup. She asked if she could start at 4 units instead of 8. She is worried because she had a bad reaction when she took Lantus previously. Book Critic discussed this with Dr. Noyola and she is okay with her starting at a lower dose for now. Lastly, life underwriter notified patient that Dr. Noyola wanted to discuss with her rush seater her Lovenox dosing. Patient stated there was some confusion if she should be on 40mg or 80mg, patient prefers to be on the lower dose. Patient is seeing a Dr. Calix from the [facility] hematology office in [place]. Notified patient that we will reach out to her rush seater to discuss her dosing. documented in this encounterMercy Health [facility]09-10-2025 Telephone encounter Note* Telephone Encounter - Jacque Pat RN - 01/07/2025 10:29 AM EDT Book Critic called and spoke to patient yesterday to discuss a several topics. Book Critic asked if patient wanted another follow up cervical length. Patient declined. We also discussed her insulin dosage. Patient had not started her NPH insulin yet because her pharmacy did not notify her it was ready for pickup. She asked if she could start at 4 units instead of 8. She is worried because she had a bad reaction when she took Lantus previously. Book Critic discussed this with Dr. Noyola and she is okay with her starting at a lower dose for now. Lastly, life underwriter notified patient that Dr. Noyola wanted to discuss with her rush seater her Lovenox dosing. Patient stated there was some confusion if she should be on 40mg or 80mg, patient prefers to be on the lower dose. Patient is seeing a Dr. Calix from the [facility] hematology office in [place]. Notified patient that we will reach out to her rush seater to discuss her dosing. [facility]09-08-2025 History of Present illness Narrative* Rosi Murray [...] Date Noted 32 weeks gestation of ([facility]) 11/28/2019 Abdominal pain 06/12/2023 Acute bronchitis due to infection 06/12/2023 Acute on chronic vesicular eczema of hands and feet 11/15/2023 Anemia complicating childbirth ([facility]) 01/16/2020 Anticoagulant long-term use 02/22/2020 Antiphospholipid antibody positive 09/10/2017 Antiphospholipid antibody syndrome ([facility]) 07/07/2019 Anxiety 06/12/2023 Blood pressure elevated without history of HTN 11/15/2023 BMI 37.0-37.9, adult 11/15/2023 Cerebral infarction, unspecified ([facility]) 05/16/2019 Cerebrovascular accident (CVA) due to stenosis of middle cerebral artery ([facility]) 02/22/2020 Cervicalgia 02/05/2019 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 ([facility]) 01/08/2020 Coagulation defect, unspecified ([facility]) 02/05/2019 Cold intolerance 11/15/2023 Deficiency of other specified B group vitamins 05/16/2019 Deviated septum 11/15/2023 Dizziness and giddiness 02/05/2019 Dry mouth 11/15/2023 Dysfunction of eustachian tube 06/12/2023 Dyspnea 06/12/2023 Elevated blood pressure reading 11/15/2023 Encounter for supervision of normal , unspecified, first trimester ([facility]) 05/29/2019 Environmental allergies 11/15/2023 Fatigue 12/29/2016 First degree perineal laceration during delivery ([facility]) 01/16/2020 Frequency of micturition 02/19/2019 Genitourinary symptoms 08/19/2021 Gestational diabetes mellitus (GDM), antepartum ([facility]) 01/26/2022 H/O: hypothyroidism 11/15/2023 Hematochezia [...] 01/16/2020 Irregular uterine bleeding 11/15/2023 problem ([facility]) 06/12/2023 Less than 8 weeks gestation of ([facility]) 06/05/2019 longterm (current) use of 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/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 02/05/2019 Migraine without aura and without status migrainosus, not intractable 09/12/2017 Morbid obesity ([facility]) 11/15/2023 Muscle fasciculation 08/19/2021 Nasal polyps 11/15/2023 Non-smoker 11/15/2023 NEETA (obstructive sleep apnea) 11/15/2023 Other acute postprocedural pain 02/03/2019 Other general symptoms and signs 10/28/2019 Other immediate hemorrhage ([facility]) 01/16/2020 Other specified noninflammatory disorders of vagina 02/21/2019 Pain in joint 12/29/2016 Palpitations 08/26/2019 Paresthesia of bilateral legs 11/15/2023 Pelvic and perineal pain 02/01/2019 Personal history of urinary (tract) infections 01/16/2020 Pre-diabetes 11/15/2023 Primary hypercoagulable state ([facility]) 08/01/2022 Pruritus, unspecified 01/02/2020 Psychogenic hyperventilation 06/12/2023 Raised antibody titer 09/25/2017 Right lower quadrant pain 11/15/2023 Right otitis externa 11/15/2023 Salivary gland swelling 11/15/2023 Single live ([facility]) 01/15/2020 Snoring 11/15/2023 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) 12/30/2019 Suspected severe acute respiratory syndrome coronavirus 2 (SARS-CoV-2) infection 06/12/2023 SVT (supraventricular tachycardia) ([facility]) 08/26/2019 Syncope and collapse 06/03/2018 [...] drainage of cyst WISDOM TOOTH EXTRACTION 2007 [place] teeth REVIEW OF SYSTEMS Review of Systems: [...] nursing note reviewed. Exam conducted with a metal burrer present. Vitals: Estimated body mass index is 33.73 kg/m as calculated from the following: Height as of 11/19/23: 5' 6 . Weight as of this encounter: 209 lb. BP: 122/74 Patient's last menstrual period was 07/28/2024. ASSESSMENT & PLAN ICD-10-CM 1. Second trimester ([facility]) Z34.92 POCT urinalysis dipstick manually resulted 2. 23 weeks gestation of ([facility]) Z3A.23 3. Thyroid disease E07.9 Echocardiogram 2D complete ECG 12 lead unit performed Echocardiogram 2D complete 4. Gestational diabetes mellitus (GDM), antepartum, gestational diabetes method of control unspecified ([facility]) O24.419 Echocardiogram 2D complete ECG 12 lead unit performed Echocardiogram 2D complete 5. Multigravida of advanced maternal age in second trimester ([facility]) O09.522 Echocardiogram 2D complete ECG 12 lead [...] of: Wilton Herrmann DO documented in this encounterSaint John's Breech Regional Medical [id number] History of Present illness Narrative* Jacque Pat RN - 01/05/2025 10:20 AM EDT NPH insulin prior authorization approved. Confirmed via telephone call with automated voice messaging system. Prior authorization number #[id number] documented in this encounterMayo Memorial HospitalHalon Security [id number] History of Present illness Narrative* Mukul Noyola MD - 01/01/2025 2:30 PM EDT Images from the original note were not included. Video Visit via Real-time Synchronous Audiovisual Provider Location: [facility]- MEDICINE AT [address] [id number] Patient Location: [facility] Patient Location Engineer Steam: None Video Visit Consent Statement: I discussed [...] that there are some limitations compared to wont-re-ukdd evaluations. We elected to proceed. [facility] Maternal- Medicine Consult Note Reason For Consult: [...] will be undergoing genetic testing through the airborne operations manager. There is family history of hypospadias and [...] Anemia Antiphospholipid antibody syndrome Cerebral infarction, unspecified ([facility]) 05/16/2019 Hypothyroid Migraine without aura and without status migrainosus, not intractable 09/12/2017 Stroke ([facility]) 2016 PSHIST: Past Surgical History: Procedure Laterality [...] , Rfl: pen needle, diabetic (BD ULTRA-FINE NEID PEN NEEDLE) 32 gauge x 5/32 needle, [...] contrast; Future - [facility] - [place], [place]; Future 2. Antiphospholipid syndrome complicating , antepartum - Echo complete W/O contrast; Future - [facility] [place], [place]; Future 3. History of stroke 4. [...] intermittent symptoms concerning for an autoimmune condition [id number]. I recommended she sees a technical solutions engineer. Referral given. I asked her to hold [...] supposed to undergo genetic testing with her airborne operations manager. After the patient left I found that [...] asymptomatic I recommend that she sees a report writer and she desires referral locally. Recommendations: - increase metformin to 1500 mg at night - she is willing to try the NPH 8 units at night - to continue to send blood glucoses to [facility] to review - follow-up survey and echocardiogram [...] vasectomy. Further recommendations to be made by MFM as the progresses Plan reviewed with patient. She vocalized understanding all questions answered. The patient is to continue with routine care in your office Thank you for allowing me to participate in her care. Please contact me if you have any concerns. Mukul Noyola MD, FACOG (she/hers) Maternal- Medicine [facility] [address] [place] [address] This document was created with [employer] technology. Though I make every effort to review the dictation as it is transcribed, on occasion the spoken word can be misinterpreted by the technology leading to inappropriate words, phrases, or sentences. This note is addressed to the requesting provider as a consultation for clinical guidance. Specificmedical abbreviations are occasionally used and those are generally approved by the [place]?Board of?Obstetrics and?Gynecology?as well as?Elizabeth s abbreviations. The above plan of care was based solely on the diagnoses for which a consultation was requested. ?More frequent testing may be indicated based on her other medical/obstetrical conditions. The management of other or medical conditions is beyond the scope of requested consultation and will c ontinue to be followed by the primary milling machine set up operator or primary care provider. Note to patient: [...] male Have you been seen here at [facility] in a previous ? yes Recent ER visits or hospitalizations? Seen in L&D for cramping about 2 weeks ago Bring blood sugar log or meter with you today? (Please bring them with you for every visit at [facility]) scanned to media tab Flu vaccine (Feb-June)? no Any concerns that you would like me to mention to the provider today? No concerns documented in this encounterMercy Health [facility] Hospital08-29-2025 Miscellaneous Notes* Telephone Encounter - PRISCILLA Del [...] one time on December 11) with Dr. Docheva, who will be seeing patient via video [...] and basics of CGM explained. Will send Vivaty message with instructions on how to connect to our [facility] account. Explained how to prudence notes on the [facility] kennedy for fasting BG and meals. documented in this encounterGrant HospitalOptics 1 Deckerville Community [id number] Telephone encounter Note* Telephone Encounter - PRISCILLA [...] and basics of CGM explained. Will send Vivaty message with instructions on how to connect to our [facility] account. Explained how to prudence notes on the [employer] kennedy for fasting BG and meals. [facility]08-26-2025 NoteHNO ID: [id number] Author: KATHERINE NEGRETE APRN.PEN RULER OPERATOR Service: ? Author Type: Nurse Practitioner Type: Progress Notes Filed: 12/24/2024 21:07 Note Text: NAME: Sanna Rendon CLINIC NO.: [id number] DATE OF SERVICE: December 23, 2024 (Arsh) [...] later in 2018. These were found in [place], [place]. I don't have access to these [...] rash shortly before presenting to [facility] in 2016 with headaches and was diagnosed [...] g/dL, and platelets a (more content not included)...[facility]08-26-2025 History of Present illness Narrative* Katherine Negrete APRN.PEN RULER OPERATOR - 12/23/2024 11:50 AM EDT Images from the original note were not included. NAME: Sanna Rendon CLINIC NO.: [id number] DATE OF SERVICE: December 23, 2024 (Arsh) Some elements in this clinic note that are critical to medical decision making have been carefully reviewed and included from a prior clinic note dated: October 28, 2024 (Arsh) Additional Clinicians involved in Sanna eRndon's care: Drs. Herrmann, Jorge Monge, Humaira Gaviria, CC: Hypercoag state CASE SUMMARY / ASSESSMENT: 39 year old woman presents with a prior history of CVA in 2016 and an antiphospholipid antibody that was identified much later in 2018. These were found in [place], [place]. I don't have access to these [...] rash shortly before presenting to [facility] in 2016 with headaches and was diagnosed [...] had a miscarriage, at 14 weeks, earlier thismonth. She required surgical intervention to remove the [...] Monge soon. When she hada stroke in [place], she had symptoms up to a month before: uncontrollable headache, BP was elevated, knee stiffness, and blurry vision. Right facial drooping and difficulty speaking [facility] She continues to take vitamins. Updated Visit, [...] and stayed [place] 13.[place] [facility] [place] if persisting bleeding but she [...] at age 69. Both lived in [facility] but she was adopted. She was not able to see ID in October and will be seeing Dr. Baugh next week. Also will have her see Dr. Hamlin for her clotting disorder and make any other recommendations to optimize her treatment. Updated Visit, October 08, 2020: Telephone only Received call from pt stating she was seen in [facility] [place] for numbness in her chest, throat, and extremities, and sob which has been worsening over the last week. We arranged a telephone visit for her franci questions with me. Sanna Rendon is a 34 year old female seen for Hypercoagulable state and recent concerns and symptoms that required her to be seen at [facility]. She went to the ER with Gradual worsening of breathing after progressive tingling of fingers and legs. She currently remains very fatigued even though she is sleeping well. Now recalls that before her stroke she remembers having a bull's eye rash and was seen with severe headaches in [place], [place] - was found to have a [...] a root canal and was sent to [facility] [place] which was negative but non-contrasted. [...] back to January 2016 in [facility] where she had persisting headaches and slurred speech followed by lower extremity weakness. This took a few months to resolve and she is back to her normal state of being but some point in time during her her next she was seen by Dr. Humera Hyde in [place] as well and was found to have [...] which included preparing to see the patient, [id number] patient care, completing clinical documentation, obtaining and/or reviewing separately obtained history, performing a medically appropriate examination, counseling and educating the pat ient/family/caregiver, ordering medications, tests, or procedures, independently interpreting results (not separately reported), and communicating results to the patient/family/caregiver. Katherine Negrete APRN.CNP Hematology and Oncology Services Provided at: [place], [place] CC: MD Wilton Day[address] [place] [address] Humaira Gaviria MD [address] [place] [id number] MD Cosmo Kingston MD Michael Blank, MD documented in this encounterLouis Stokes Cleveland Va [facility] Center08-20-2025 History of Present illness Narrative* BRENNEN Guillen - 12/17/2024 3:30 PM EDT REASON FOR OFFICE VISIT: Video Visit via Real-time Synchronous Audiovisual Provider Location: [facility]- MEDICINE AT [address] [address] Patient Location: Patient's home Video [...] that there are some limitations compared to buem-gc-zzte evaluations. The patient consented to the presence [...] TSH 1.25 10/28/2024 No results found for: [id number] No results found for: CREATININE , BUN [...] can be done through close contact with MFM diabetic: via weekly glucose review either by [...] by e-mail to: or by fax to: [phone] TIME OF CONSULTATION: 45 minutes with the patient, >50% in discussion and counseling, coordination of care which was [id number], review of records and communication back to referring provider. BRENNEN Guillen 12/17/24 1619 documented in this encounterMercy Health [facility]08-15-2025 Miscellaneous Notes* Telephone Encounter - PRISCILLA Sutherland [...] 12/17/2024. Sanna verbalized understanding. documented in this encounterMercy Health – The Jewish Hospital08-15-2025 Telephone encounter Note* Telephone Encounter - PRISCILLA [...] Alisa Saba APRN 12/17/2024. Sanna verbalized understanding. [facility] Work Phone: [phone] 287-417508-15-2025 Miscellaneous Notes* Telephone Encounter - PRISCILLA Sutherland [...] tried higher fiber snacks in the evening. Book Critic told her that I would relay her concerns to [facility] physician and get back to her. Obtained blood sugars for this week and will scan them into her chart. documented in this encounterMercy Health – The Jewish Hospital08-15-2025 Telephone encounter Note* Telephone Encounter - PRISCILLA [...] tried higher fiber snacks in the evening. Book Critic told her that I would relay her concerns to [facility] physician and get back to her. Obtained blood sugars for this week and will scan them into her chart. [facility] Work Phone: [phone] 388-352408-14-2025 History of Present illness Narrative* Rosi Murray, DEB - 12/11/2024 9:10 AM EDT Reason for [...] Date Noted 32 weeks gestation of ([facility]) 11/28/2019 Abdominal pain 06/12/2023 Acute bronchitis due to infection 06/12/2023 Acute on chronic vesicular eczema of hands and feet 11/15/2023 Anemia complicating childbirth ([facility]) 01/16/2020 Anticoagulant long-term use 02/22/2020 Antiphospholipid antibody positive 09/10/2017 Antiphospholipid antibody syndrome ([facility]) 07/07/2019 Anxiety 06/12/2023 Blood pressure elevated without history of HTN 11/15/2023 BMI 37.0-37.9, adult 11/15/2023 Cerebral infarction, unspecified ([facility]) 05/16/2019 Cerebrovascular accident (CVA) due to stenosis of middle cerebral artery ([facility]) 02/22/2020 Cervicalgia 02/05/2019 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 ([facility]) 01/08/2020 Coagulation defect, unspecified ([facility]) 02/05/2019 Cold intolerance 11/15/2023 Deficiency of other specified B group vitamins 05/16/2019 Deviated septum 11/15/2023 Dizziness and giddiness 02/05/2019 Dry mouth 11/15/2023 Dysfunction of eustachian tube 06/12/2023 Dyspnea 06/12/2023 Elevated blood pressure reading 11/15/2023 Encounter for supervision of normal , unspecified, first trimester ([facility]) 05/29/2019 Environmental allergies 11/15/2023 Fatigue 12/29/2016 First degree perineal laceration during delivery ([facility]) 01/16/2020 Frequency of micturition 02/19/2019 Genitourinary symptoms 08/19/2021 Gestational diabetes mellitus (GDM) affecting ([facility]) 01/26/2022 H/O: hypothyroidism 11/15/2023 Hematochezia [...] 01/16/2020 Irregular uterine bleeding 11/15/2023 problem ([facility]) 06/12/2023 Less than 8 weeks gestation of ([facility]) 06/05/2019 longterm (current) use of 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/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 02/05/2019 Migraine without aura and without status migrainosus, not intractable 09/12/2017 Morbid obesity ([facility]) 11/15/2023 Muscle fasciculation 08/19/2021 Nasal polyps 11/15/2023 Non-smoker 11/15/2023 NEETA (obstructive sleep apnea) 11/15/2023 Other acute postprocedural pain 02/03/2019 Other general symptoms and signs 10/28/2019 Other immediate hemorrhage ([facility]) 01/16/2020 Other specified noninflammatory disorders of vagina 02/21/2019 Pain in joint 12/29/2016 Palpitations 08/26/2019 Paresthesia of bilateral legs 11/15/2023 Pelvic and perineal pain 02/01/2019 Personal history of urinary (tract) infections 01/16/2020 Pre-diabetes 11/15/2023 Primary hypercoagulable state ([facility]) 08/01/2022 Pruritus, unspecified 01/02/2020 Psychogenic hyperventilation 06/12/2023 Raised antibody titer 09/25/2017 Right lower quadrant pain 11/15/2023 Right otitis externa 11/15/2023 Salivary gland swelling 11/15/2023 Single live ([facility]) 01/15/2020 Snoring 11/15/2023 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) 12/30/2019 Suspected severe acute respiratory syndrome coronavirus 2 (SARS-CoV-2) infection 06/12/2023 SVT (supraventricular tachycardia) ([facility]) 08/26/2019 Syncope and collapse 06/03/2018 [...] AMA (advanced maternal age) multigravida 35+ ([facility]) Anemia Antiphospholipid syndrome ([facility]) Gestational diabetes ([facility]) Heartburn Hypothyroid Stroke ([facility]) HISTORY PAST MEDICAL HISTORY SOCIAL HISTORY Past Medical History: Diagnosis Date AMA (advanced maternal age) multigravida 35+ ([facility]) Anemia Antiphospholipid syndrome ([facility]) Gestational diabetes ([facility]) Heartburn Hypothyroid Stroke ([facility]) Social History Tobacco Use Smoking status: Never [...] drainage of cyst WISDOM TOOTH EXTRACTION 2007 [place] teeth REVIEW OF SYSTEMS Review of Systems: [...] nursing note reviewed. Exam conducted with a metal burrer present. Vitals: Estimated body mass index is 33.41 kg/m as calculated from the following: Height as of 11/19/23: 5' 6 . Weight as of this encounter: 207 lb. BP: 120/70 Patient's last menstrual period was 07/28/2024. ASSESSMENT & PLAN ICD-10-CM 1. 19 weeks gestation of ([facility]) Z3A.19 POCT urinalysis dipstick manually resulted 2. Second trimester ([facility]) Z34.92 POCT urinalysis dipstick manually resulted 3. Thyroid disease E07.9 4. Multigravida of advanced maternal age in second trimester ([facility]) O09.522 5. Gestational diabetes mellitus (GDM), antepartum, gestational diabetes method of control unspecified ([facility]) O24.419 Patient presents today for [...] scan and Telemedicine with MFM provider in [place]. Documented by Rosi Murray LPN on behalf of: Wilton Herrmann DO documented in this encounterSaint John's Breech Regional Medical [id number] Miscellaneous Notes* Telephone Encounter - Anni Abreu CMA - 12/03/2024 3:01 PM EDT Left message with patient to call our office to schedule her next appt in 2 week with an STONEMASON/PA. Left call back number and to press option 3 for scheduling. documented in this encounterMer[facility] Telephone encounter Note* Telephone Encounter - Anni Abreu CMA - 12/03/2024 3:01 PM EDT Left message with patient to call our office to schedule her next appt in 2 week with an STONEMASON/PA. Left call back number and to press option 3 for scheduling. [facility]08-06-[facility] History of Present illness Narrative* Alisa Saba APRN-PEN RULER OPERATOR - 12/03/2024 2:00 PM EDT REASON FOR [...] starting insulin. She is being [facility] at [facility] due to GDMA2. States she is [...] TSH 1.25 10/28/2024 No results found for: [id number] No results found for: CREATININE , BUN [...] baby. Little research has been done on continuous churn buttermaker effects of Metformin exposure to the fetus. [...] by e-mail to: or by fax to: [phone] TIME OF CONSULTATION: 60 minutes with the patient, >50% in discussion and counseling, coordination of care which was laby-lu-cddg, review of records and communication back to referring provider. BRENNEN Guillen 12/03/24 1500 documented in this encounterMayo Memorial HospitalHalon Security [id number] History of Present illness Narrative* Rosi Murray [...] Date Noted 32 weeks gestation of ([facility]) 11/28/2019 Abdominal pain 06/12/2023 Acute bronchitis due to infection 06/12/2023 Acute on chronic vesicular eczema of hands and feet 11/15/2023 Anemia complicating childbirth ([facility]) 01/16/2020 Anticoagulant long-term use 02/22/2020 Antiphospholipid antibody positive 09/10/2017 Antiphospholipid antibody syndrome ([facility]) 07/07/2019 Anxiety 06/12/2023 Blood pressure elevated without history of HTN 11/15/2023 BMI 37.0-37.9, adult 11/15/2023 Cerebral infarction, unspecified ([facility]) 05/16/2019 Cerebrovascular accident (CVA) due to stenosis of middle cerebral artery ([facility]) 02/22/2020 Cervicalgia 02/05/2019 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 ([facility]) 01/08/2020 Coagulation defect, unspecified ([facility]) 02/05/2019 Cold intolerance 11/15/2023 Deficiency of other specified B group vitamins 05/16/2019 Deviated septum 11/15/2023 Dizziness and giddiness 02/05/2019 Dry mouth 11/15/2023 Dysfunction of eustachian tube 06/12/2023 Dyspnea 06/12/2023 Elevated blood pressure reading 11/15/2023 Encounter for supervision of normal , unspecified, first trimester ([facility]) 05/29/2019 Environmental allergies 11/15/2023 Fatigue 12/29/2016 First degree perineal laceration during delivery ([facility]) 01/16/2020 Frequency of micturition 02/19/2019 Genitourinary symptoms 08/19/2021 Gestational diabetes mellitus (GDM) affecting ([facility]) 01/26/2022 H/O: hypothyroidism 11/15/2023 Hematochezia [...] 01/16/2020 Irregular uterine bleeding 11/15/2023 problem ([facility]) 06/12/2023 Less than 8 weeks gestation of ([facility]) 06/05/2019 longterm (current) use of 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/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 02/05/2019 Migraine without aura and without status migrainosus, not intractable 09/12/2017 Morbid obesity ([facility]) 11/15/2023 Muscle fasciculation 08/19/2021 Nasal polyps 11/15/2023 Non-smoker 11/15/2023 NEETA (obstructive sleep apnea) 11/15/2023 Other acute postprocedural pain 02/03/2019 Other general symptoms and signs 10/28/2019 Other immediate hemorrhage ([facility]) 01/16/2020 Other specified noninflammatory disorders of vagina 02/21/2019 Pain in joint 12/29/2016 Palpitations 08/26/2019 Paresthesia of bilateral legs 11/15/2023 Pelvic and perineal pain 02/01/2019 Personal history of urinary (tract) infections 01/16/2020 Pre-diabetes 11/15/2023 Primary hypercoagulable state ([facility]) 08/01/2022 Pruritus, unspecified 01/02/2020 Psychogenic hyperventilation 06/12/2023 Raised antibody titer 09/25/2017 Right lower quadrant pain 11/15/2023 Right otitis externa 11/15/2023 Salivary gland swelling 11/15/2023 Single live ([facility]) 01/15/2020 Snoring 11/15/2023 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) 12/30/2019 Suspected severe acute respiratory syndrome coronavirus 2 (SARS-CoV-2) infection 06/12/2023 SVT (supraventricular tachycardia) ([facility]) 08/26/2019 Syncope and collapse 06/03/2018 [...] drainage of cyst WISDOM TOOTH EXTRACTION 2007 [place] teeth REVIEW OF SYSTEMS Review of Systems: [...] nursing note reviewed. Exam conducted with a metal burrer present. Vitals: Estimated body mass index is 33.57 kg/m as calculated from the following: Height as of 11/19/23: 5' 6 . Weight as of this encounter: 208 lb. BP: 108/76 Patient's last menstrual period was 07/28/2024. ASSESSMENT & PLAN ICD-10-CM 1. Second trimester ([facility]) Z34.92 Alpha fetoprotein, maternal Alpha fetoprotein, maternal 2. 16 weeks gestation of ([facility]) Z3A.16 POCT urinalysis dipstick manually resulted 3. Screening, , for anatomic survey ([facility]) Z36.89 CANCELED: US OB 14+ [...] of: Wilton Herrmann DO documented in this encounterSaint John's Breech Regional Medical [id number] Group counseling note* Group Note - Cindy [...] Face to face time was 100 minutes. [employer] Work Phone: 1(144) 474-633107-23-2025 Miscellaneous Notes* Group Note - Cindy Miller [...] time was 100 minutes. documented in this encounterMercy Health [facility]07-09-2025 Telephone encounter Note* Telephone Encounter - Rachael Johnson RN - 11/05/2024 12:48 PM EDT Pt updated. She reports she is unable to take aspirin. It makes my electrolytes go out of whack. Ididn't take with my previous pregnancies and I am not comfortable taking this time either. She will continue with Lovenox, as recommended. Pt is scheduled for appt with high density press laborer, 11/19/24, [facility]. She denies further questions, needs or concerns for our care team at this time. Appt verified for RTC Rachael Johnson RN [facility]07-09-2025 Miscellaneous Notes* Telephone Encounter - Rachael Johnson RN - 11/05/2024 12:48 PM EDT Pt updated. She reports she is unable to take aspirin. It makes my electrolytes go out of whack. Ididn't take with my previous pregnancies and I am not comfortable taking this time either. She will continue with Lovenox, as recommended. Pt is scheduled for appt with high density press laborer, 11/19/24, [facility]. She denies further questions, needs or concerns for our care team at this time. Appt verified for RTC Rachael Johnson RN * Telephone Encounter - Katherine Negrete APRN.CNP - 11/05/2024 12:29 PM EDT Spoke with Dr. Moscoso and she is to continue Lovenox 40 daily and add baby asa (81 mg) daily. Please also make sure she is following OB High risk. Labs acceptable at this time. Will monitor. Katherine Sofia APRN.TOR * Telephone Encounter - Abbie Jimenez PA-C [...] note were not included. documented in this encounterLouis Stokes Cleveland [facility] Center07-09-2025 Telephone encounter Note * Telephone Encounter - Katherine Negrete APRN.CNP - 11/05/2024 12:29 PM EDT Spoke with Dr. Moscoso and she is to continue Lovenox 40 daily and add baby asa (81 mg) daily. Please also make sure she is following OB High risk. Labs acceptable at this time. Will monitor. Katherine Sofia APRN.CNP [facility] Work Phone: [phone] Telephone encounter Note* Telephone Encounter - Abbie Jimenez PA-C - 11/04/2024 8:13 AM EDT Katherine saw this patient last and will be able to advise better of the plan of care. Abbie Jimenez PA-C [facility] Work Phone: 1(916) 641-285507-03-2025 History of Present illness Narrative* Rosi Murray [...] Date Noted 32 weeks gestation of ([facility]) 11/28/2019 Abdominal pain 06/12/2023 Acute bronchitis due to infection 06/12/2023 Acute on chronic vesicular eczema of hands and feet 11/15/2023 Anemia complicating childbirth ([facility]) 01/16/2020 Anticoagulant long-term use 02/22/2020 Antiphospholipid antibody positive 09/10/2017 Antiphospholipid antibody syndrome ([facility]) 07/07/2019 Anxiety 06/12/2023 Blood pressure elevated without history of HTN 11/15/2023 BMI 37.0-37.9, adult 11/15/2023 Cerebral infarction, unspecified ([facility]) 05/16/2019 Cerebrovascular accident (CVA) due to stenosis of middle cerebral artery ([facility]) 02/22/2020 Cervicalgia 02/05/2019 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 ([facility]) 01/08/2020 Coagulation defect, unspecified ([facility]) 02/05/2019 Cold intolerance 11/15/2023 Deficiency of other specified B group vitamins 05/16/2019 Deviated septum 11/15/2023 Dizziness and giddiness 02/05/2019 Dry mouth 11/15/2023 Dysfunction of eustachian tube 06/12/2023 Dyspnea 06/12/2023 Elevated blood pressure reading 11/15/2023 Encounter for supervision of normal , unspecified, first trimester ([facility]) 05/29/2019 Environmental allergies 11/15/2023 Fatigue 12/29/2016 First degree perineal laceration during delivery ([facility]) 01/16/2020 Frequency of micturition 02/19/2019 Genitourinary symptoms 08/19/2021 Gestational diabetes mellitus (GDM) affecting ([facility]) 01/26/2022 H/O: hypothyroidism 11/15/2023 Hematochezia [...] 01/16/2020 Irregular uterine bleeding 11/15/2023 problem ([facility]) 06/12/2023 Less than 8 weeks gestation of ([facility]) 06/05/2019 longterm (current) use of 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/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 02/05/2019 Migraine without aura and without status migrainosus, not intractable 09/12/2017 Morbid obesity ([facility]) 11/15/2023 Muscle fasciculation 08/19/2021 Nasal polyps 11/15/2023 Non-smoker 11/15/2023 NEETA (obstructive sleep apnea) 11/15/2023 Other acute postprocedural pain 02/03/2019 Other general symptoms and signs 10/28/2019 Other immediate hemorrhage ([facility]) 01/16/2020 Other specified noninflammatory disorders of vagina 02/21/2019 Pain in joint 12/29/2016 Palpitations 08/26/2019 Paresthesia of bilateral legs 11/15/2023 Pelvic and perineal pain 02/01/2019 Personal history of urinary (tract) infections 01/16/2020 Pre-diabetes 11/15/2023 Primary hypercoagulable state ([facility]) 08/01/2022 Pruritus, unspecified 01/02/2020 Psychogenic hyperventilation 06/12/2023 Raised antibody titer 09/25/2017 Right lower quadrant pain 11/15/2023 Right otitis externa 11/15/2023 Salivary gland swelling 11/15/2023 Single live ([facility]) 01/15/2020 Snoring 11/15/2023 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) 12/30/2019 Suspected severe acute respiratory syndrome coronavirus 2 (SARS-CoV-2) infection 06/12/2023 SVT (supraventricular tachycardia) ([facility]) 08/26/2019 Syncope and collapse 06/03/2018 [...] AMA (advanced maternal age) multigravida 35+ ([facility]) Anemia Antiphospholipid syndrome ([facility]) Gestational diabetes ([facility]) Heartburn Hypothyroid Stroke ([facility]) HISTORY PAST MEDICAL HISTORY SOCIAL HISTORY Past Medical History: Diagnosis Date AMA (advanced maternal age) multigravida 35+ ([facility]) Anemia Antiphospholipid syndrome ([facility]) Gestational diabetes ([facility]) Heartburn Hypothyroid Stroke ([facility]) Social [...] drainage of cyst WISDOM TOOTH EXTRACTION 2007 [place] teeth REVIEW OF SYSTEMS Review of Systems: [...] nursing note reviewed. Exam conducted with a metal burrer present. Vitals: Estimated body mass index is 33.81 kg/m as calculated from the following: Height as of 11/19/23: 5' 6 . Weight as of this encounter: 209 lb 8 oz. BP: 110/76 Patient's last menstrual period was 07/28/2024. ASSESSMENT & PLAN ICD-10-CM 1. Second trimester ([facility]) Z34.92 POCT urinalysis dipstick manually resulted 2. 13 weeks gestation of ([facility]) Z3A.13 3. Thyroid disease E07.9 4. Multigravida of advanced maternal age in second trimester ([facility]) O09.522 New OB: Patient presents [...] or undercooked meat, [facility]. Patient has been consulted regarding any further do's and don'tsof . Patient voiced understanding and all questions and concerns were answered. Patient is currently on 40 Lovenox and will be referred to [facility] for recommendations/co-management throughout . Discussed concerns in regards to bleeding with Lovenox and possible dosage changes throughout due to recommendations from high risk providers. Patient is currently checking FSBS and will bring log with her next visit. Include Diabetic Management with [facility] Referral. Orders Placed This Encounter Procedures POCT urinalysis dipstick manually resulted Follow Up: Patient is to return in 4 weeks for routine OB appointment. Documented by Rosi Murray LPN on behalf of: Wilton Herrmann DO documented in this encounterSaint John's Breech Regional Medical [id number] Telephone encounter Note* Telephone Encounter - Valeri Yeung RN - 10/30/2024 8:30 AM EDT Labs resulted. Please advise. Valeri Yeung RN [facility]07-01-2025 Telephone encounter Note* Telephone Encounter - Roberta Haskins - 10/28/2024 2:52 PM EDT Images from the original note were not included. [facility]07-01-2025 NoteHNO ID: [id number] Author: KATHERINE NEGRETE APRN.PEN RULER OPERATOR Service: ? Author Type: Nurse Practitioner Type: Progress Notes Filed: 10/29/2024 21:44 Note Text: NAME: Sanna Rendon [facility] NO.: [id number] DATE OF SERVICE: October 28, 2024 (Arsh) [...] later in 2018. These were found in [place], [place]. I don't have access to these [...] rash shortly before presenting to [facility] in 2015 with headaches and was diagnosed [...] vision changes both have (more content not included)...[facility]07-01-2025 History of Present illness Narrative* Katherine NegreteVICTOR HUGO.PEN RULER OPERATOR - 10/28/2024 2:33 PM EDT Images from the original note were not included. NAME: Sanna Rendon CLIN[facility] NO.: [id number] DATE OF SERVICE: October 28, 2024 (Arsh) [...] later in 2018. These were found in [place], [place]. I don't have access to these [...] rash shortly before presenting to [facility] in 2016 with headaches and was diagnosed [...] had a miscarriage, at 14 weeks, earlier thismonth. She required surgical intervention to remove the [...] Monge soon. When she hada stroke in [place], she had symptoms up to a month before: uncontrollable headache, BP was elevated, knee stiffness, and blurry vision. Right facial drooping and difficulty speaking [facility] She continues to take vitamins. Updated Visit, [...] and stayed [place]gb 13.1 [place] [facility] [place] if persisting bleeding but she [...] at age 69. Both lived in [facility] but she was adopted. She was not able to see ID in October and will be seeing Dr. Baugh next week. Also will have her see Dr. Hamlin for her clotting disorder and make any other recommendations to optimize her treatment. Updated Visit, October 08, 2020: Telephone only Received call from pt stating she was seen in [facility] [place] for numbness in her chest, throat, and extremities, and sob which has been worsening over the last week. We arranged a telephone visit for her toreview questions with me. Sanna Rendon is a 34 year old female seen for Hypercoagulable state and recent concerns and symptoms that required her to be seen at [facility]. She went to the ER with Gradual worsening of breathing after progressive tingling of fingers and legs. She currently remains very fatigued even though she is sleeping well. Now recalls that before her stroke she remembers having a bull's eye rash and was seen with severe headaches in [facility] was found to have a stroke [...] a root canal and was sent [place] [facility] [place] which was negative but non-contrasted. [...] back to January 2016 in [facility] where she had persisting headaches and slurred speech followed by lower extremity weakness. This took a few months to resolve and she is back to her normal state of being but some point in time during her her next she was seen by Dr. Humera Hyde in [place] as well and was found to have [...] which included preparing to see the patient, [id number] patient care, completing clinical documentation, obtaining and/or reviewing separately obtained history, performing a medically appropriate examination, counseling and educating the pat ient/family/caregiver, ordering medications, tests, or procedures, independently interpreting results (not separately reported), and communicating results to the patient/family/caregiver. Katherine Negrete APRN.TOR H[facility]ology [facility] Oncology Services Provided at: [place], [place] CC: Dr. Praveen MD Wilton Spencer Herrmann[address] [place] [address] Humaira Gaviria MD [address] [place] [id number] MD Cosmo Kingston MD Michael Blank, MD documented in this encounterLouis Stokes [facility]06-27-2025 Telephone encounter Note * Telephone Encounter - Kaur Dunham MA - 10/24/2024 2:14 PM EDT New orders may need placed for appt on 10/28. Kaur Dunham MA [facility]06-27-2025 Miscellaneous Notes* Telephone Encounter - Kaur Dunham MA - 10/24/2024 2:14 PM EDT New orders may need placed for appt on 10/28. Kaur Dunham MA documented in this encounterLouis Stokes Cleveland Va Medical Center06-16-2025 Miscellaneous Notes* Telephone Encounter - Margo Khan RN - 10/13/2024 12:14 PM EDT Attempted to contact patient x3, call cannot be completed, cannot receive calls at this time. Unable to leave a voicemail. documented in this encounterMercy Health [facility]06-16-2025 Telephone encounter Note* Telephone Encounter - Margo Khan RN - 10/13/2024 12:14 PM EDT Attempted to contact patient x3, call cannot be completed, cannot receive calls at this time. Unable to leave a voicemail. [facility]06-05-2025 History of Present illness Narrative* Lala Hess [...] due to stenosis of middle cerebral artery ([facility]) 02/22/2020 Cervicalgia 02/05/2019 Chromosomal abnormality [...] Less than 8 weeks gestation of 06/05/2019 longterm (current) use of 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/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 02/05/2019 Migraine without aura and without status migrainosus, not intractable ([facility]) 09/12/2017 Morbid obesity ([facility]) 11/15/2023 Muscle fasciculation 08/19/2021 Nasal [...] infections 01/16/2020 Pre-diabetes 11/15/2023 Primary hypercoagulable state ([facility]) 08/01/2022 Pruritus, unspecified 01/02/2020 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[facility]) 06/12/2023 Raised antibody titer 09/25/2017 Right lower quadrant pain 11/15/2023 Right otitis externa 11/15/2023 Salivary gland swelling 11/15/2023 Single live 01/15/2020 Snoring 11/15/2023 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) 12/30/2019 Suspected severe acute respiratory syndrome coronavirus 2 (SARS-CoV-2) infection 06/12/2023 SVT (supraventricular tachycardia) ([facility]) 08/26/2019 Syncope and collapse 06/03/2018 Other bacterial infections of unspecified site 06/27/2019 Thrombocytopenia, unspecified ([facility]) 11/20/2019 Hypoglycemia 06/12/2023 Unspecified condition [...] drainage of cyst WISDOM TOOTH EXTRACTION 2007 [place] teeth Allergies Allergen Reactions Ciprofloxacin GI intolerance [...] TSH Nurse Note: Patient desires to have [employer] to one. Pt was advised to [...] or undercooked meat, and [facility]. Patient has also been advised to [...] by: Lala Hess MA documented in this encounterSaint John's Breech Regional Medical [id number] NotePatient Education Infectious Disease Upper Respiratory Infection, [...] to help relieve symptoms, such as: ??? Teow-ftq-cqkvfqe cold medicines. ??? Cough suppressants. Coughing is [...] other clear broths. General instructions ??? Take dhdt-plz-pscptjo and prescription medicines only as told by [...] and water are not available, use hand solar sales energy advisor. ??? Avoid touching your mouth, face, eyes, [...] a stiff neck. ? (more content not included)...[facility]05-07-2025 Miscellaneous Notes* Telephone Encounter - Rachael Johnson [...] Pt missed today's appt. Called and left to please call and schedule missed follow up MUNIRA. Fely: Please advise Rachael Johnson RN documented in this encounterLouis [facility] Telephone encounter Note * Telephone Encounter - Rachael Johnson RN - 09/03/2024 1:25 PM EDT Pt notified and appt for September. She denies any further questions, needs or concerns at thistime. Rachael Johnson RN [facility]05-07-2025 Telephone encounter Note* Telephone Encounter - Kristofer Calix MD - 09/03/2024 12:51 PM EDT No change in meds. [facility]05-06-2025 Telephone encounter Note* Telephone Encounter - Rachael Johnson RN - 09/02/2024 9:37 AM EDT Pt left a voicemail to inform she is approximately 5 weeks . She is asking any recommendations on med changes. Pt missed today's appt. Called and left VM to please call and schedule missed follow up MUNIRA. Fely: Please advise Rachael Johnson, RN [facility]04-29-2025 Telephone encounter Note* Telephone Encounter - Serina Dawson MA - 08/26/2024 3:41 PM EDT Patient has an appt on 08/27/24. Would you like labs, if so place orders. Serina Dawson MA [facility]04-29-2025 Miscellaneous Notes* Telephone Encounter - Serina Horton MA - 08/26/2024 3:41 PM EDT Patient has an appt on 08/27/24. Would you like labs, if so place orders. 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 Coagulation defect, unspecified ([facility]/HCC) 02/05/2019 Cold intolerance 11/15/2023 Deficiency of other [...] Less than 8 weeks gestation of 06/05/2019 longterm (current) use of 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/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 02/05/2019 Migraine without aura and without status migrainosus, not intractable ([facility]) 09/12/2017 Morbid obesity ([facility]) 11/15/2023 Muscle fasciculation 08/19/2021 Nasal [...] infections 01/16/2020 Pre-diabetes 11/15/2023 Primary hypercoagulable state ([facility]) 08/01/2022 Pruritus, unspecified 01/02/2020 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[facility]) 06/12/2023 Raised antibody titer 09/25/2017 Right lower quadrant pain 11/15/2023 Right otitis externa 11/15/2023 Salivary gland swelling 11/15/2023 Single live 01/15/2020 Snoring 11/15/2023 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) 12/30/2019 Suspected severe acute respiratory syndrome coronavirus 2 (SARS-CoV-2) infection 06/12/2023 SVT (supraventricular tachycardia) ([facility]) 08/26/2019 Syncope and collapse 06/03/2018 Other bacterial infections of unspecified site 06/27/2019 Thrombocytopenia, unspecified ([facility]/HCC) 11/20/2019 Hypoglycemia 06/12/2023 Unspecified condition associated with [...] drainage of cyst WISDOM TOOTH EXTRACTION 2007 [place] teeth REVIEW OF SYSTEMS Review of Systems: [...] nursing note reviewed. Exam conducted with a metal burrer present. Vitals: Estimated body mass index is [...] of: Wilton Herrmann DO documented in this encounterSaint John's Breech Regional Medical [id number] NotePatient Education Emergency Medicine Bradycardia, Adult Bradycardia is a lfatja-agim-tniaey heartbeat. A normal resting heart rate for [...] ??? Follow a heart-healthy diet. A nutrition aide (dietitian) can help educate you about healthy [...] liquor (44 mL). General instructions ??? Take ajem-oka-vupsrsw and prescription medicines only as told by [...] irregular heartbeat (palpitations). ??? (more content not included)...[facility]03-03-2025 Hospital Discharge instructions Patient Education 06/30/2024 09:20:56 [...] Follow these instructions at home: Medicines Give lgpp-pwl-zfdzmcb and prescription medicines only as told by [...] find more information PANDAS Network: pandasnetwork.org [place] of Mental Health: nim.nih.gov Contact a health [...] the National Suicide Prevention Lifeline at or 396. This is open 24 hours a day. Text the Crisis Text Line at 903629. Summary Pediatric autoimmune neuropsychiatric disorders associated with [...] provider. Document Revised: 01/09/2022 Document Reviewed: 01/09/2022 [employer] Patient Education 2023 [employer]. 06/30/2024 09:20:50 Common Variable Immunodeficiency Common Variable [...] Follow these instructions at home: Medicines Take hwcl-jpz-owkycai and prescription medicines only as told by [...] disease. Where to find more information [place] of Allergy and Infectious Disease: www.niaid.nih.gov Contact [...] risk for frequent or unusual infections. Take sbhr-pkk-elbykut and prescription medicines only as told by [...] provider. Document Revised: 11/18/2021 Document Reviewed: 11/18/2021 [employer] Patient Education 2023 [employer]. 06/30/2024 09:18:06 DASH Eating Plan DASH Eating [...] Dairy Whole or 2% milk, cream, and jxbs-pjx-hosy. Whole or full-fat cream cheese. Whole-fat or [...] should avoid. Talk to a dietitian alida more. Where to find more information National Heart, Lung, and Blood [place] (NHLBI): nhlbi.nih.gov [place] Heart Association (AHA): heart.org Academy of Nutrition and Dietetics: eatright.org National Kidney Foundation (NKF): kidney.org This information is not intended to replace advice given to you by your health care provider. Make sure you discuss any questions you have with your health care provider. Document Revised: 05/03/2023 Document Reviewed: 05/03/2023 [employer] Patient Education 2023 [employer]. Follow Up Care 06/25/2024 13:53:59 With:PRAVEEN RESENDEZ FAAFP, CHRIS Perez, PED Address: [address] [place] [id number]- When:Within 2 Month(s) [facility] 03-03-2025 NotePatient Education Immunology Common [...] these instructions at home: Medicines ??? Take fykb-aii-spwjjko and prescription medicines only as told by [...] Where to find more information ??? [place] of Allergy and Infectious Disease: www.niaid.nih.gov Contact a health care provider if: ??? You have a fever. ??? You have any symptoms of infection such as chills, worsening cough, or severe earache. ??? You make high-pitched whistling sounds when you breathe, most often when you breathe out (wheeze). 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 Coagulation defect, unspecified ([facility]/HCC) 02/05/2019 Cold intolerance 11/15/2023 Deficiency of other [...] Less than 8 weeks gestation of 06/05/2019 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 02/05/2019 Migraine without aura and without status migrainosus, not intractable (CMS/HCC) 09/12/2017 Morbid obesity ([facility]) 11/15/2023 Muscle fasciculation 08/19/2021 Nasal [...] (CMS/HCC) 08/01/2022 Pruritus, unspecified 01/02/2020 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CMS/HCC) 06/12/2023 Raised antibody titer 09/25/2017 Right lower quadrant pain 11/15/2023 Right otitis externa 11/15/2023 Salivary gland swelling 11/15/2023 Single live 01/15/2020 Snoring 11/15/2023 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) 12/30/2019 Suspected severe acute respiratory syndrome coronavirus 2 (SARS-CoV-2) infection 06/12/2023 SVT (supraventricular tachycardia) ([facility]/HCC) 08/26/2019 Syncope and collapse 06/03/2018 Other bacterial infections of unspecified site 06/27/2019 Thrombocytopenia, unspecified ([facility]/HCC) 11/20/2019 Hypoglycemia 06/12/2023 Unspecified condition associated with [...] Antiphospholipid syndrome (CMS/HCC) Gestational diabetes Heartburn Hypothyroid ([facility]/HCC) Stroke ([facility]/HCC) HISTORY PAST MEDICAL HISTORY SOCIAL HISTORY Past Medical History: Diagnosis Date AMA (advanced maternal age) multigravida 35+ Anemia Antiphospholipid syndrome (CMS/HCC) Gestational diabetes Heartburn Hypothyroid ([facility]/HCC) Stroke ([facility]) Social History Tobacco Use Smoking status: Never [...] drainage of cyst WISDOM TOOTH EXTRACTION 2007 [place] teeth REVIEW OF SYSTEMS Review of Systems: [...] nursing note reviewed. Exam conducted with a metal burrer present. Vitals: Estimated body mass index is [...] of: Wilton Herrmann DO documented in this encounterSaint John's Breech Regional Medical [id number] Hospital Discharge instructions Patient Education 06/09/2024 14:23:47 [...] Do not chew gum. General instructions Take dgqr-zzg-kuufwaa and prescription medicines only as told by [...] important. Where to find more information [place] of Dental and Craniofacial Research: www.nidcr.nih.gov Contact [...] provider. Document Revised: 11/27/2021 Document Reviewed: 11/27/2021 [employer] Patient Education 2023 [employer]. Follow Up Care 06/06/2024 11:26:13 With:PRAVEEN RESENDEZ FAAFP, Penelope Tony, CHRIS, PED Address: [place] [address]- When:Within 6 Month(s) [facility] 02-10-2025 NotePatient Education Orthopedics Temporomandibular [...] not chew gum. General instructions ??? Take gfig-lzk-tzgmlga and prescription medicines only as told by [...] Where to find more information ??? [place] of Dental and Craniofacial Research: www.nidcr.nih.gov Contact [...] provider. Document Revised: 11/27/2021 Document Reviewed: 11/27/2021 [employer] Patient Education ? 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 Coagulation defect, unspecified ([facility]) 02/05/2019 Cold intolerance 11/15/2023 Deficiency [...] Less than 8 weeks gestation of 06/05/2019 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 02/05/2019 Migraine without aura and without status migrainosus, not intractable ([facility]) 09/12/2017 Morbid obesity ([facility]) 11/15/2023 Muscle fasciculation 08/19/2021 Nasal [...] (CMS/HCC) 08/01/2022 Pruritus, unspecified 01/02/2020 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CMS/HCC) 06/12/2023 Raised antibody titer 09/25/2017 Right lower quadrant pain 11/15/2023 Right otitis externa 11/15/2023 Salivary gland swelling 11/15/2023 Single live 01/15/2020 Snoring 11/15/2023 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) 12/30/2019 Suspected severe acute respiratory syndrome coronavirus 2 (SARS-CoV-2) infection 06/12/2023 SVT (supraventricular tachycardia) ([facility]/HCC) 08/26/2019 Syncope and collapse 06/03/2018 Other bacterial infections of unspecified site 06/27/2019 Thrombocytopenia, unspecified ([facility]) 11/20/2019 Hypoglycemia 06/12/2023 Unspecified condition [...] drainage of cyst WISDOM TOOTH EXTRACTION 2007 [place] teeth REVIEW OF SYSTEMS Review of Systems: [...] nursing note reviewed. Exam conducted with a metal burrer present. Vitals: Estimated body mass index is [...] Patient had recent [place] [facility] [place] lab value was 6. Documented by Renate Vegas LPN on behalf of: Wilton Herrmann DO documented in this encounterSaint John's Breech Regional Medical [id number] Telephone encounter Note* Telephone Encounter - Taylor Escudero - 05/28/2024 1:45 PM EST Triage to call with iron results [facility]01-29-2025 Miscellaneous Notes* Telephone Encounter - Taylor Escudero - 05/28/2024 1:45 PM EST Triage to call with iron results documented in this encounterLouis Stokes Cleveland Va Medical Center01-29-2025 Instructions* Patient Instructions* Nathaly Florence - 05/28/2024 1:44 PM EST Triage to call iron results Continue Lovenox - patient prefers 40 mg (rather than rec 80mg) Encouraged her to reconsider Take B12 supplement in the form of a sublingual tablet RTC in 3 months Labs same day or 2-7 days prior documented in this encounterLouis Stokes Cleveland Va Medical Center01-29-2025 History of Present illness Narrative* Kristofer Calix MD - 05/28/2024 1:00 PM EST Images from the original note were not included. NAME: Sanna Rendon CLINIC NO.: [id number] DATE OF SERVICE: May 28, 2024 (Levon) Some elements in this clinic note that are critical to medical decision making have been carefully reviewed and included from a prior clinic note dated: January 02, 2024 (Levon) Additional Clinicians involved in Sanna Rendon's care: Jorge Mcwilliams, Humaira Gaviria, CC: hypercoag state. ASSESSMENT: 38 year old woman presents with a prior history of CVA in 2016 and an antiphospholipid antibody that was identified much later in 2018. These were found in [place], [place]. I don't have access to these [...] rash shortly before presenting to [facility] in 2016 with headaches and was diagnosed [...] had a miscarriage, at 14 weeks, earlier thismonth. She required surgical intervention to remove the [...] Monge soon. When she hada stroke in [place], she had symptoms up to a month before: uncontrollable headache, BP was elevated, knee stiffness, and blurry vision. Right facial drooping and difficulty speaking [facility] She continues to take vitamins. Updated Visit, [...] and stayed on Lovenox Hgb 13.1 @ [facility] Recommended ER if persisting bleeding but she [...] at age 69. Both lived in [facility] but she was adopted. She was not able to see ID in October and will be seeing Dr. Baugh next week. Also will have her see Dr. Hamlin for her clotting disorder and make any other recommendations to optimize her treatment. Updated Visit, October 08, 2020: Telephone only Received call from pt stating she was seen in [facility] [place] for numbness in her chest, throat, and extremities, and sob which has been worsening over the last week. We arranged a telephone visit for her chanw questions with me. Sanna Rendon is a 34 year old female seen for Hypercoagulable state and recent concerns and symptoms that required her to be seen at [facility] [place]. She went to the ER with Gradual worsening of breathing after progressive tingling of fingers and legs. She currently remains very fatigued even though she is sleeping well. Now recalls that before her stroke she remembers having a bull's eye rash and was seen with severe headaches in [facility] was found to have a stroke [...] a root canal and was sent to [facility] for MRI which was negative but non-contrasted. [...] back to January 2016 in [facility] where she had persisting headaches and slurred speech followed by lower extremity weakness. This took a few months to resolve and she is back to her normal state of being but some point in time during her her next she was seen by Dr. Humera Hyde in [place] as well and was found to have [...] which included preparing to see the patient, jfub-zy-eqbg patient care, completing clinical documentation, performing a medically appropriate examination, counseling and educating the patient/family/caregiver, ordering medications, tests, or p rocedures, independently interpreting results (not separately reported), communicating results to the patient/family/caregiver, and care coordination (not separately reported). Kristofer Calix MD, CPE Hematology [facility] Oncology Services Provided at: [place], [place] Scribe Attestation: This note was scribed [...] under my direction. CC: MD Wilton Day, [address] [place] [address] Humaira Gaviria MD [address] [place] [id number] MD Cosmo Kingston MD Michael Blank, MD documented in this encounterLouis Stokes Cleveland Va Medical Center01-29-2025 NoteHNO ID: [id number] Author: KRISTOFER CALIX MD Service: ? Author Type: Physician Type: Progress Notes Filed: 05/29/2024 09:13 Note Text: NAME: Sanna Rendon [facility] NO.: [id number] DATE OF SERVICE: May 28, 2024 (Levon) [...] later in 2018. These were found in [place], [place]. I don't have access to these [...] rash shortly before presenting to [facility] in 2015 with headaches and was diagnosed [...] soon. When she had a stroke in [place], she had symptoms up to a month [...] breast feeding. Updated Visit, (more content not included)...[facility] 05-14-2024 Telephone encounter Note* Telephone Encounter - Rachael Johnson RN - 05/14/2024 10:15 AM EST Pt called to inform she had a miscarriage, Sunday (05/10/24) Asking if any additional blood work was needed from out standpoint. Pt aware we will be checking her CBC for any signs of anemia and her iron studies for deficiency. She is aware if her differential tester or PCP request any additional testing, we can certainly draw with her appt 05/21 (will just need to fax orders). She denies any further questions needs or concerns at this time. MARSHA Rushk: YANET [facility]01-15-2025 Miscellaneous Notes* Telephone Encounter - Rachael Johnson RN - 05/14/2024 10:15 AM EST Pt called to inform she had a miscarriage, Sunday (05/10/24) Asking if any additional blood work was needed from out standpoint. Pt aware we will be checking her CBC for any signs of anemia and her iron studies for deficiency. She is aware if her differential tester or PCP request any additional testing, we can certainly draw with her appt 05/21 (will just need to fax orders). She denies any further questions needs or concerns at this time. MARSHA Rushk: YANET documented in this encounterLouis Stokes Cleveland Va Medical Center01-15-2025 Telephone encounter Note * Telephone Encounter - [...] thinnersat follow up appointment. PVU--Rosi Presley LPN [facility] [id number] Miscellaneous Notes* Telephone Encounter - Rosi Murray [...] appointment. [facility]--Rosi Presley LPN documented in this encounterSaint John's Breech Regional Medical [id number] History of Present illness Narrative* Pamela Walter [...] Antiphospholipid antibody positive 09/10/2017 Antiphospholipid antibody syndrome ([facility]/HCC) 07/07/2019 Anxiety 06/12/2023 Blood pressure elevated without history of HTN 11/15/2023 BMI 37.0-37.9, adult 11/15/2023 Cerebral infarction, unspecified ([facility]) 05/16/2019 Cerebrovascular accident (CVA) due to stenosis of middle cerebral artery ([facility]) 02/22/2020 Cervicalgia 02/05/2019 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 Coagulation defect, unspecified ([facility]) 02/05/2019 Cold intolerance 11/15/2023 Deficiency [...] Less than 8 weeks gestation of 06/05/2019 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 02/05/2019 Migraine without aura and without status migrainosus, not intractable ([facility]) 09/12/2017 Morbid obesity ([facility]) 11/15/2023 Muscle fasciculation 08/19/2021 Nasal [...] infections 01/16/2020 Pre-diabetes 11/15/2023 Primary hypercoagulable state ([facility]) 08/01/2022 Pruritus, unspecified 01/02/2020 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[facility]) 06/12/2023 Raised antibody titer 09/25/2017 Right lower quadrant pain 11/15/2023 Right otitis externa 11/15/2023 Salivary gland swelling 11/15/2023 Single live 01/15/2020 Snoring 11/15/2023 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) 12/30/2019 Suspected severe acute respiratory syndrome coronavirus 2 (SARS-CoV-2) infection 06/12/2023 SVT (supraventricular tachycardia) ([facility]) 08/26/2019 Syncope and collapse 06/03/2018 [...] drainage of cyst WISDOM TOOTH EXTRACTION 2007 [place] teeth REVIEW OF SYSTEMS Review of Systems: [...] nursing note reviewed. Exam conducted with a metal burrer present. Vitals: Estimated body mass index is [...] urinalysis dipstick manually resulted documented in this encounterSaint John's Breech Regional Medical [id number] History of Present illness Narrative* Ariane Joseph, DEB - 04/04/2024 10:00 AM EST Reason for [...] Antiphospholipid antibody positive 09/10/2017 Antiphospholipid antibody syndrome ([facility]/HCC) 07/07/2019 Anxiety 06/12/2023 Blood pressure elevated without history of HTN 11/15/2023 BMI 37.0-37.9, adult 11/15/2023 Cerebral infarction, unspecified ([facility]) 05/16/2019 Cerebrovascular accident (CVA) due to stenosis of middle cerebral artery ([facility]) 02/22/2020 Cervicalgia 02/05/2019 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 Coagulation defect, unspecified ([facility]) 02/05/2019 Cold intolerance 11/15/2023 Deficiency [...] Less than 8 weeks gestation of 06/05/2019 longterm (current) use of 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/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 02/05/2019 Migraine without aura and without status migrainosus, not intractable ([facility]) 09/12/2017 Morbid obesity ([facility]) 11/15/2023 Muscle fasciculation 08/19/2021 Nasal [...] infections 01/16/2020 Pre-diabetes 11/15/2023 Primary hypercoagulable state ([facility]) 08/01/2022 Pruritus, unspecified 01/02/2020 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[facility]) 06/12/2023 Raised antibody titer 09/25/2017 Right lower quadrant pain 11/15/2023 Right otitis externa 11/15/2023 Salivary gland swelling 11/15/2023 Single live 01/15/2020 Snoring 11/15/2023 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) 12/30/2019 Suspected severe acute respiratory syndrome coronavirus 2 (SARS-CoV-2) infection 06/12/2023 SVT (supraventricular tachycardia) ([facility]) 08/26/2019 Syncope and collapse 06/03/2018 Other bacterial infections of unspecified site 06/27/2019 Thrombocytopenia, unspecified ([facility]/HCC) 11/20/2019 Hypoglycemia 06/12/2023 Unspecified condition associated with female genital organs and menstrual cycle 05/09/2019 Unspecified ovarian cyst, right side 02/06/2019 Urinary tract infection 10/16/2019 Referred otalgia of right ear 11/19/2023 LPRD (laryngopharyngeal reflux disease) 11/19/2023 Resolved Ambulatory Problems Diagnosis Date Noted No Resolved Ambulatory Problems Past Medical History: Diagnosis Date AMA (advanced maternal age) multigravida 35+ Anemia Antiphospholipid syndrome ([facility]/HCC) Gestational diabetes Heartburn Hypothyroid ([facility]) Stroke ([facility]) Family History Problem Relation Name [...] drainage of cyst WISDOM TOOTH EXTRACTION 2007 [place] teeth Allergies Allergen Reactions Ciprofloxacin GI intolerance [...] or undercooked meat, and stay away from [facility]. Patient has also been advised to [...] by: Ariane Joseph LPN documented in this encounterSaint John's [facility] [id number] Telephone encounter Note* Telephone Encounter - Rachael Johnson RN - 02/28/2024 8:21 AM EDT Pt aware and agreeable to plan of care. Pt denies any further questions, needs or concerns at this time. Appt verified for lab/follow up Rachael Johnson RN [facility]10-31-2024 Miscellaneous Notes* Telephone Encounter - Rachael Johnson [...] prenatals. We should March labs as scheduled. * Telephone Encounter - Rachael Johnson RN - 02/27/2024 9:41 AM EDT Pt 4 weeks and inquiring if she should have March's lab work completed now or wait until scheduled appt. Pt last labs completed 01/02/24. Pt also would like to know if it is okay to take with iron? Fely: Please advise Rachael Johnson RN documented in this encounterLouis Stokes Cleveland [facility] Medical Center10-30-2024 Telephone encounter Note * Telephone Encounter - Kristofer Calix MD - 02/27/2024 4:36 PM EDT She can take the iron with prenatals. We should March labs as scheduled. [facility]10-30[facility]2024 Telephone encounter Note* Telephone Encounter - Rachael Johnson RN - 02/27/2024 9:41 AM EDT Pt 4 weeks and inquiring if she should have March's lab work completed now or wait until scheduled appt. Pt last labs completed 01/02/24. Pt also would like to know if it is okay to take with iron? Fely: Please advise Rachael Johnson RN [facility]10-08-2024 Hospital Discharge instructions Patient Education 02/05/2024 14:07:02 [...] condition. Follow these instructions at home: Take qacj-aam-tpfctfo and prescription medicines only as told by [...] and water are not available, use hand solar sales energy advisor. Avoid contact with people who have cold [...] it is easier to cough up. Take vxpi-mkv-qfltlif and prescription medicines only as told by [...] provider. Document Revised: 07/27/2022 Document Reviewed: 08/17/2021 [employer] Patient Education 2023 [employer]. Follow Up Care 02/04/2024 08:47:42 With:PRAVEEN RESENDEZ FAAFP, CHRIS Perez, PED Address: [address] [place] [address] [place], [facility] [place] [address]- When:Within 3 Month(s) [facility] 10-08-2024 NotePatient Education Pulmonary Medicine [...] Follow these instructions at home: ? Take gdtr-gej-kxepvsf and prescription medicines only as told by [...] and water are not available, use hand solar sales energy advisor. ? Avoid contact with people who have [...] is easier to cough up. ? Take qdyd-vlm-algihuh and (more content not included)...[facility]10-05-2024 Hospital Discharge instructions Follow Up Care 02/02/2024 11:19:56 With:Anni Bernstein MD, [facility], [facility] Address: [address] [place] [phone] When: only if needed [facility] 09-09-2024 Miscellaneous Notes* Telephone Encounter - Valeri Yeung [...] FE results. Thank you documented in this encounterLouis Stokes Cleveland [facility] Medical Center09-09-2024 Telephone encounter Note * Telephone Encounter - Valeri Yeung RN - 01/07/2024 8:29 AM EDT No need for IV iron per CC'd chart from Dr. Calix. Attempt to call pt to notify. Left detailed message on, along with call back number on voicemail. Valeri Yeung RN [facility]09-04-2024 Telephone encounter Note* Telephone Encounter - Marleen Mcdonald - 01/02/2024 2:[address] Luna is requesting Triage to call Sanna with her FE results. Thank you [facility]09-04-2024 Instructions* Patient Instructions* Nathaly Florence - 01/02/2024 2:08 PM EDT Triage to call iron results Continue Lovenox - patient prefers 40 mg (rather than rec 80mg) Encouraged her to reconsider Take B12 supplement in the form of a sublingual tablet RTC in 3 months Labs same day Vitamin D, TSH, Calcium with CMP documented in this encounterLouis Stokes Cleveland Va Medical Center09-04-2024 Nurse Note* Serina Horton MA - 01/02/2024 [...] MRI but was negative. Serina Dawson MA [facility]09-04-2024 Nurse Note* Serina Dawson MA - 01/02/2024 [...] negative. Serina Dawson MA documented in this encounterLouis Stokes Cleveland Va Medical Center09-04-2024 History of Present illness Narrative* Kristofer Calix MD - 01/02/2024 1:45 PM EDT Images from the original note were not included. NAME: Sanna Rendon CLINIC NO.: [id number] DATE OF SERVICE: January 02, 2024 (Levon) Some elements in this clinic note that are critical to medical decision making have been carefully reviewed and included from a prior clinic note dated: June 15, 2023 (Levon) Additional Clinicians involved in Sanna Rendon's care: Jorge Mcwilliams, Humaira Gaviria, CC: hypercoag state. ASSESSMENT: 38 year old woman presents with a prior history of CVA in 2016 and an antiphospholipid antibody that was identified much later in 2018. These were found in [place], [place]. I don't have access to these [...] rash shortly before presenting to [facility] in 2016 with headaches and was diagnosed [...] Monge soon. When she hada stroke in [place], she had symptoms up to a month before: uncontrollable headache, BP was elevated, knee stiffness, and blurry vision. Right facial drooping and difficulty speaking [facility] She continues to take vitamins. Updated Visit, [...] and stayed on Lovenox Hgb 13.1 [place] [facility] [place] ER if persisting bleeding but she [...] at age 69. Both lived in [facility] but she was adopted. She was not able to see ID in October and will be seeing Dr. Baugh next week. Also will have her see Dr. Hamlin for her clotting disorder and make any other recommendations to optimize her treatment. Updated Visit, October 08, 2020: Telephone only Received call from pt stating she was seen in [facility] [place] for numbness in her chest, throat, and extremities, and sob which has been worsening over the last week. We arranged a telephone visit for her chanw questions with me. Sanna Rendon is a 34 year old female seen for Hypercoagulable state and recent concerns and symptoms that required her to be seen at [facility] [place]. She went to the ER with Gradual worsening of breathing after progressive tingling of fingers and legs. She currently remains very fatigued even though she is sleeping well. Now recalls that before her stroke she remembers having a bull's eye rash and was seen with severe headaches in [facility] was found to have a stroke [...] a root canal and was sent to [facility] for MRI which was negative but non-contrasted. [...] back to January 2016 in [facility] where she had persisting headaches and slurred speech followed by lower extremity weakness. This took a few months to resolve and she is back to her normal state of being but some point in time during her her next she was seen by Dr. Humera Hyde in [place] as well and was found to have [...] which included preparing to see the patient, lzsf-kq-inzx patient care, completing clinical documentation, performing a medically appropriate examination, counseling and educating the patient/family/caregiver, ordering medications, tests, or p rocedures, independently interpreting results (not separately reported), communicating results to the patient/family/caregiver, and care coordination (not separately reported). Kristofer Calix MD, CPE [facility] Provided at: [place], [place] Scribe Attestation: This note was scribed [...] under my direction. CC: MD Wilton Day, [address] [place] [address] Humaira Gaviria MD [address] [place] [id number] MD Cosmo Kingston MD Michael Blank, MD documented in this encounterLouis Stokes Cleveland [facility] Medical Center08-19-2024 Telephone encounter Note * Telephone Encounter - Rachael Johnson RN - 12/17/2023 12:57 PM EDT Pt updated and will follow up with PCP. Denies further questions, needs or concerns at this time for our provider. Rachael Johnson RN [facility]08-19-2024 Miscellaneous Notes* Telephone Encounter - Rachael Johnson [...] to IV Iron 11/29/23? documented in this encounterLouis Stokes Cleveland Va Medical Center08-19-2024 Telephone encounter Note * Telephone Encounter - Kristofer Calix MD - 12/17/2023 12:52 PM EDT No - sounds like she has some infectious process going on - would rec PCP. [facility]08-19-2024 Telephone encounter Note* Telephone Encounter - Rachael [...] possible delayed reaction to IV Iron 11/29/23? [facility]08-01-2024 History of Present illness Narrative* Becki Gutierrez RN - 11/29/2023 2:01 PM EDT Y Y documented in this encounterLouis Stokes Cleveland Va Medical Center08-01-2024 Telephone encounter Note * Telephone Encounter - Rachael Johnson RN - 11/29/2023 12:45 PM EDT MARSHA Connell, treatment aware of changes. [facility]08-01-2024 Miscellaneous Notes* Telephone Encounter - Rachael Johnson [...] a different iron formulation. documented in this encounterLouis Stokes Cleveland Va Medical Center08-01-2024 Telephone encounter Note * Telephone Encounter - Rachael Johnson RN - 11/29/2023 12:41 PM EDT Spoke with pt. She will obtain Pepcid OTC from our retail pharmacy on arrival to take (1) 20 mg tablet. She is aware and agreeable to IV steroid for infusion as well. Rachael Johnson RN [facility]08-01-2024 Telephone encounter Note* Telephone Encounter - Raissa Aly RPh - 11/29/2023 12:40 PM EDT A one time dose of dexamethasone is safe when . I added 8mg to the plan for your review. Please adjust dose if necessary. Thanks, Raissa Aly RPh [facility] Work Phone: [phone]) 587-267508-01-2024 Telephone encounter Note* Telephone Encounter - Raissa Aly RPh - 11/29/2023 12:34 PM EDT Famotidine is safe when . Do we want to administer the venofer slower? What rate? Thanks, Raissa Aly RPh [facility]08-01-2024 Telephone encounter Note* Telephone Encounter - Rachael Johnson RN - 11/29/2023 11:56 AM EDT Called and discussed with pt. She is and cannot take Benadryl. She is reluctant to take Pepcid. Attempted to call retail, infusion pharmacy and [facility], no answer, to ask safety of pepcid in . Pharm/Fely: please advise Rachael Johnson RN [facility]08-01-2024 Telephone encounter Note* Telephone Encounter - Kristofer [...] have to choose a different iron formulation. [facility]07-18-2024 History of Present illness Narrative* Alison Linares RN - 11/15/2023 1:42 PM EDT Pt reports having nausea and lightheadedness this morning. She has seen her pcp regarding these symptoms and is being worked up to figure out the cause. documented in this encounterLouis Stokes Cleveland Va Medical Center07-18-2024 Telephone encounter Note * Telephone Encounter - Evelyn Sanabria - 11/15/2023 9:19 AM EDT 1st report of treatment-Non oncology regimen (Venofer) Patient holds Medicaid coverage and there isno available FA at this time. [facility]07-18-2024 Miscellaneous Notes* Telephone Encounter - Evelyn Sanabria - 11/15/2023 9:19 AM EDT 1st report of treatment-Non oncology regimen (Venofer) Patient holds Medicaid coverage and there isno available FA at this time. documented in this encounterLouis Stokes Cleveland [facility] Center07-12-2024 Hospital Discharge instructions Patient Education 11/09/2023 15:56:11 [...] your hypoglycemia. Where to find more information [place] Diabetes Association: www.diabetes.org National [place] of Diabetes and Digestive and Kidney Diseases: [...] provider. Document Revised: 03/17/2021 Document Reviewed: 03/17/2021 [employer] Patient Education 2022 [employer]. 11/09/2023 15:56:06 Prediabetes Prediabetes Prediabetes is when [...] hard liquor (44 mL). General instructions Take jazh-jon-cqnqlvk and prescription medicines only as told by [...] is important. Where to find more information [place] Diabetes Association: www.diabetes.org Academy of Nutrition and Dietetics: www.eatright.org [place] Heart Association: www.heart.org Contact a health care [...] provider. Document Revised: 07/15/2020 Document Reviewed: 07/15/2020 [employer] Patient Education 2022 [employer]. 11/09/2023 15:56:02 Palpitations Palpitations Palpitations are feelings [...] ask your health careprovider. General instructions Take agdk-ymx-cbwtqcr and prescription medicines only as told by [...] provider. Document Revised: 09/07/2021 Document Reviewed: 09/07/2021 [employer] Patient Education 2022 [employer] 11/09/2023 15:55:58 Fatigue Fatigue If you [...] Follow these instructions at home: Medicines Take ozza-fpp-cmdqxlb and prescription medicines only as told by [...] the National Suicide Prevention Lifeline at or 858. This is open 24 hours a day. Text the Crisis Text Line at 924680. Summary If you have fatigue, you feel [...] provider. Document Revised: 02/06/2022 Document Reviewed: 02/06/2022 [employer] Patient Education 2022 [employer]. Follow Up Care 11/08/2023 11:31:43 With:PRAVEEN RESENDEZ FAAFP, CHRIS Perez, PED Address: [facility] [place], [place] [address]- When: Unknown [facility] 07-12-2024 NotePatient Education Emergency Medicine [...] health care provider. General instructions ? Take hajm-qnw-tmattdu and prescription medicines only as told by [...] provider. Document Revised: 09/07/2021 Document Reviewed: 09/07/2021 [email or web address] Patient Education ? 2022 [employer]. Endocrinology Preventing Hypoglycemia Hypoglycemia occurs when the [...] Mild hypoglycemia may not (more content not included)...[facility]07-12-2024 History of Present illness Narrative* Tamiko Krueger LSW - 11/09/2023 9:27 AM EDT Patient appears on the [facility] First Time Treatment List for a non-oncology treatment. No psychosocial assessment is indicated. KRISTOPHER Huerta documented in this encounterLouis Stokes Cleveland [facility] Center07-09-2024 Telephone encounter Note * Telephone Encounter - [...] dizziness, etc. Appointments verified. Rachael Johnson RN [facility]07-09-2024 Miscellaneous Notes* Telephone Encounter - Rachael Johnson [...] dizziness, etc. Appointments verified. Rachael Johnson RN * Telephone Encounter - [...] [facility] [place] Clerical Pool Perry Sanna - looks like you need Iron again. Dr. Middleton Cancel her virtual set for 11/05 and 11/19 - infuse 3 doses weekly iron and then see her in 8 weeks inperson - labs same day. Thanks! documented in this encounterLouis Stokes Cleveland [facility] Center07-08-2024 Telephone encounter Note * Telephone Encounter - [...] get you feeling better. Dr. Kane Arana [facility]07-08-2024 Telephone encounter Note* Telephone Encounter - Roberta [...] is on a blood thinner. Roberta Haskins [facility]07-08-2024 Telephone encounter Note* Telephone Encounter - Roberta Haskins - 11/05/2023 12:47 PM EDT Appointment tomorrow cancelled. Andres tried calling her this morning and was unable to get a hold ofher. Will keep trying patient to schedule for Iron. Roberta Haskins [facility]07-08-2024 Telephone encounter Note* Telephone Encounter - Roberta [...] weeks inperson - labs same day. Thanks! [facility]06-25-2024 Hospital Discharge instructions Patient Education 10/23/2023 17:12:54 [...] specializes in ear, nose, and throat disorders (dry chain worker, or ENT) for more tests and treatment. [...] (rhinoplasty). Follow these instructions at home: Take ltum-vgm-efpddxk and prescription medicines only as told by [...] specializes in ear, nose, and throat disorders (dry chain worker, or ENT) for more tests and treatment. This information is not intended to replace advice given to you by your health care provider. Make sure you discuss any questions you have with your health care provider. Document Revised: 12/12/2021 Document Reviewed: 12/12/2021 [employer] Patient Education 2022 [employer]. 10/23/2023 17:12:52 Nasal Polyps Nasal Polyps Nasal [...] instructions at home: Medicines Take or use jzuj-eqz-yqrhkul and prescription medicines only as told by [...] provider. Document Revised: 04/05/2022 Document Reviewed: 04/05/2022 [employer] Patient Education 2022 [employer]. 10/23/2023 17:12:52 Nasal Polypectomy Nasal Polypectomy Nasal [...] including vitamins, herbs, eye drops, creams, and mznt-etf-hknazhv medicines. Any problems you or family members [...] provider tells you to take them. Taking jvvz-bkd-obolwat medicines, vitamins, herbs, and supplements. General instructions [...] provider. Document Revised: 04/05/2022 Document Reviewed: 04/05/2022 [employer] Patient Education 2022 [employer]. 10/23/2023 17:12:46 BMI for Adults BMI [...] numbers. This can be done either in [place]hi ([place] or metric measurements. Note that charts and online BMI calculators are available to help you find your BMI quickly and easily without having to do these calculations yourself. To calculate your BMI in [place]hi ([place].S[place] measurements: 1.Measure your weight in pounds [...] Centers for Disease Control and Prevention: www.cdc.gov [place] Heart Association: www.heart.org National Heart, Lung, and Blood [place]: www.nhlbi.nih.gov Summary Body mass index (BMI) is a number that is calculated from a person's weight and height. BMI may help estimate how much of a person's weight is composed of fat. BMI can help identify thosewho may be at higher risk for certain medical problems. BMI can be measured using Bangladeshi measurements or metric measurements. BMI charts are used to identify whether you are underweight, normal weight, overweight, or obese. This information is not intended to replace advice given to you by your health care provider. Make sure you discuss any questions you have with your health care provider. Document Revised: 01/07/2020 Document Reviewed: 11/14/2019 [employer] Patient Education 2022 [employer]. Follow Up Care 10/23/2023 08:49:41 With:Lourdes Urrutia Address: [address] [place] [address] [place] [address]- When: only if needed [facility] 05-31-2024 Hospital Discharge instructions Patient [...] Follow these instructions at home: Medicines Take nlaf-rgi-lozcdab and prescription medicines only as told by [...] Watch your condition for any changes. Take swst-rsv-ckenqkq and prescription medicines only as told by [...] provider. Document Revised: 06/04/2020 Document Reviewed: 08/25/2019 [employer] Patient Education 2022 [employer]. Follow Up Care 09/28/2023 18:22:59 With:Penelope CASAS Address: [address] [place], [place] [address]sarah Agee, [facility] [place] [address] Business (1) When:Within 3 Day(s) [facility]05-31-2024 Hospital Discharge instructions Patient Education 09/28/2023 18:24:44 [...] numbers. This can be done either in [place]hi ([place].S[place] or metric measurements. Note that charts and online BMI calculators are available to help you find your BMI quickly and easily without having to do these calculations yourself. To calculate your BMI in [place]hi ([place] measurements: 1.Measure your weight in pounds [...] Centers for Disease Control and Prevention: www.cdc.gov [place] Heart Association: www.heart.org National Heart, Lung, and Blood [place]: www.nhlbi.nih.gov Summary Body mass index (BMI) is a number that is calculated from a person's weight and height. BMI may help estimate how much of a person's weight is composed of fat. BMI can help identify thosewho may be at higher risk for certain medical problems. BMI can be measured using Bangl[place]hi measurements or metric measurements. BMI charts are used to identify whether you are underweight, normal weight, overweight, or obese. This information is not intended to replace advice given to you by your health care provider. Make sure you discuss any questions you have with your health care provider. Document Revised: 01/07/2020 Document Reviewed: 11/14/2019 [employer] Patient Education 2022 [employer]. 09/28/2023 18:24:42 Hypertension, Adult, Maqm-fh-Xzup Hypertension, Adult Hypertension is another name for [...] doctor. Keep all follow-up visits. Medicines Take kqyp-bnp-zzezgcj and prescription medicines only as told by [...] provider. Document Revised: 02/02/2022 Document Reviewed: 02/02/2022 [employer] Patient Education 2022 [employer]. 09/28/2023 18:24:32 Abdominal Pain, Adult, Bovz-qk-Lwdn Abdominal Pain, Adult Many things can cause belly (abdominal) pain. Most times, belly pain is not dangerous. Many cases of belly pain can be watched and treated at home. Sometimes, though, belly pain is serious. Your doctor will try to find the cause of your belly pain. Follow these instructions at home: Medicines Take jyoh-ngv-ikmuopu and prescription medicines only as told by [...] your belly pain for any changes. Take ixar-bff-vbzyiux and prescription medicines only as told by [...] provider. Document Revised: 08/25/2019 Document Reviewed: 08/25/2019 [employer] Patient Education 2022 [employer]. Follow Up Care 09/28/2023 16:11:11 With:Emergency room Address: When: only if needed Comments:Patient was instructed to contact emergency room for any worsening abdominal pain, concerns, or complications. [facility] [phone] Evaluation + Plan noteExtracted from:Title: ED NoteAuthor:Fe [...] 12:40:00 PM Scheduled Provider:Penelope CASAS DO, FAAFP Location:[facility] Appointment Type: Open Future Scheduled Tests Laboratory* HgbA1c 08/03/23 [facility]05-30-2024 Telephone encounter Note* Telephone Encounter - Roberta Haskins - 09/27/2023 4:38 PM EDT Attempt has been made x2 to reschedule patient. She did not have labs drawn. Roberta Haskins [facility]05-30-2024 Miscellaneous Notes* Telephone Encounter - Krystal Haskinstany - 09/27/2023 4:38 PM EDT Attempt has been made x2 to reschedule patient. She did not have labs drawn. Roberta Haskins documented in this encounterLouis Stokes Cleveland Va Medical Center05-29-2024 History of Present illness Narrative* Kristofer Calix MD - 09/26/2023 9:11 AM EDT Did not have labs done to prep for this visit - reschedule. Kristofer Calix MD documented in this encounterLouis Stokes Cleveland Va Medical Center04-05-2024 Hospital Discharge instructions Patient Education [...] health care provider or diet and nutrition aide (dietitian). This may include: ?Eating fewer calories. [...] provider. Document Revised: 06/12/2021 Document Reviewed: 06/12/2021 [employer]ov[employer] Patient Education 2022 [employer]s. Follow Up Care 02/15/2023 10:07:52 With:PRAVEEN RESENDEZ FAAFP, Penelope Tony, CHRIS, PED Address: [address] [place] [address] [place] [address]- When:Within 4 Month(s) [facility] 04-05-2024 Evaluation + Plan note Future Scheduled Tests Laboratory* HgbA1c 08/03/23 Radiology* CT Soft Tissue Neck w/ Contrast 11/12/23 [facility] 02-22-2024 Hospital Discharge instructions [...] or if there is an kennedy for [employer]. Most glucose meters store a record of [...] mayhave. Where to find more information The [place] Diabetes Association: www.diabetes.org The Association of Diabetes [...] provider. Document Revised: 01/12/2021 Document Reviewed: 01/12/2021 [employer]ovagen Patient Education 2022 [employer]. 06/21/2023 06:07:34 Preventing Iron Deficiency Anemia, Adult [...] iron. Foods high in vitamin C include: ?Baudette fruits, such as tai, oranges, and grapefruits. [...] iron supplement is right for you. Take qwhn-yxm-aduuzjd and prescription medicines only as told by your health care provider. Keep all follow-up visits. Where to find more information Learn more about preventing iron deficiency from: National Heart, Lung, and Blood [place]: www.nhlbi.nih.gov [place] Society of Hematology: www.hematology.org Contact a health [...] provider. Document Revised: 05/24/2022 Document Reviewed: 05/24/2022 [employer]ov[employer] Patient Education 2022 [employer] Inc. 06/21/2023 06:07:28 BMI for Adults BMI for [...] numbers. This can be done either in Bangladeshi (U.S.) or metric measurements. Note that charts and online BMI calculators are available to help you find your BMI quickly and easily without having to do these calculations yourself. To calculate your BMI in Bangladeshi ([place].S.) measurements: 1.Measure your weight in pounds [...] Centers for Disease Control and Prevention: www.cdc.gov [place] Heart Association: www.heart.org National Heart, Lung, and Blood [place]: www.nhlbi.nih.gov Summary Body mass index (BMI) is a number that is calculated from a person's weight and height. BMI may help estimate how much of a person's weight is composed of fat. BMI can help identify thosewho may be at higher risk for certain medical problems. BMI can be measured using Bangladeshi measurements or metric measurements. BMI charts are used to identify whether you are underweight, normal weight, overweight, or obese. This information is not intended to replace advice given to you by your health care provider. Make sure you discuss any questions you have with your health care provider. Document Revised: 01/07/2020 Document Reviewed: 11/14/2019 [employer]ov[employer] Patient Education 2022 [employer]. Follow Up Care 06/19/2023 13:39:56 With:PRAVEEN RESENDEZ FAAFP, CHRIS Perez, PED Address: [address] [address]- When: Unknown [facility] 02-20-2024 Miscellaneous Notes* Telephone Encounter - Rachael Johnson RN - 06/19/2023 1:05 PM EST Pt called back and aware of Fely's message. She is agreeable to POC and denies further needs at thistime. She will call PCP to follow up on TSH Rachael Johnson RN * Telephone Encounter - Rachael Johnson RN - 06/19/2023 12:26 PM EST [employer] message sent Rachael Johnson RN * Telephone [...] lab results Roberta Haskins documented in this encounterLouis Stokes Cleveland [facility] Center02-16-2024 Instructions* Patient Instructions* PosNathaly grimaldo - 06/15/2023 2:29 PM EST Triage to [...] TSH, Calcium with CMP documented in this encounterLouis Stokes Cleveland Va Medical Center02-16-2024 Nurse Note* Serina Horton MA [...] exercise. Serina Dawson MA documented in this encounterLouis Stokes Cleveland Va [facility] Center02-16-2024 History of Present illness Narrative* Kristofer Calix MD - 06/15/2023 2:00 PM EST Images from the original note were not included. NAME: Sanna Rendon CLINIC NO.: [id number] DATE OF SERVICE: June 15, 2023 (Levon) [...] later in 2018. These were found in [place], [place]. I don't have access to these [...] rash shortly before presenting to [facility] in 2016 with headaches and was diagnosed [...] Monge soon. When she hada stoke in [place], she had symptoms up to a month [...] and stayed on Lovenox Hgb 13.1 @ [facility] [place] ER if persisting bleeding but she [...] and at age 69. Both lived in [place], [place] - but she was adopted. She was not able to see ID in October and will be seeing Dr. Baugh next week. Also will have her see Dr. Hamlin for her clotting disorder and make any other recommendations to optimize her treatment. Updated Visit, October 08, 2020: Telephone only Received call from pt stating she was seen in [facility] [place] for numbness in her chest, throat, and extremities, and sob which has been worsening over the last week. We arranged a telephone visit for her franci questions with me. Sanna Rendon is a 34 year old female seen for Hypercoagulable state and recent concerns and symptoms that required her to be seen at [facility]. She went to the ER with Gradual worsening of breathing after progressive tingling of fingers and legs. She currently remains very fatigued even though she is sleeping well. Now recalls that before her stroke she remembers having a bull's eye rash and was seen with severe headaches in [place], [place] - was found to have a [...] a root canal and was sent to [facility] for MRI which was negative but non-contrasted. [...] back to January 2016 in [facility] where she had persisting headaches and slurred speech followed by lower extremity weakness. This took a few months to resolve and she is back to her normal state of being but some point in time during her her next she was seen by Dr. Humera Hyde in [place] as well and was found to have [...] which included preparing to see the patient, juqp-nb-qsem patient care, completing clinical documentation, performing a medically appropriate examination, counseling and educating the patient/family/caregiver, ordering medications, tests, or p rocedures, independently interpreting results (not separately reported), communicating results to the patient/family/caregiver, and care coordination (not separately reported). Kristofer Calix MD, CPE Hematology and Oncology Services Provided at: [place], [place] Scribe Attestation: This note was scribed [...] direction. CC: MD Chalino Dayy Spencer Herrmann, [address] [place] [address] Humaira Gaviria MD [address] [place] [address] [place] [address] MD Cosmo Kingston MD Michael Blank, MD documented in this encounterLouis Stokes Cleveland Va Medical Center02-12-2024 Miscellaneous Notes* Telephone Encounter - Ebony Redding Ma - 06/11/2023 10:43 AM EST Labs for appointment on 06/15. Ebony Redding Ma documented in this encounterLouis Stokes Cleveland Va Medical Center02-12-2024 Miscellaneous Notes* Telephone Encounter - [...] since she was last seen by him. [facility] [address], [place], Please fax records Andres, Please follow up on this appt. Thank you documented in this encounterLouis Stokes Cleveland Va Medical Center02-01-2024 History of Present illness Narrative* Kristofer Calix MD - 05/31/2023 4:30 PM EST Images from the original note were not included. NAME: Sanna Rendon CLINIC NO.: [id number] DATE OF SERVICE: May 31, 2023 (Levon) Some elements in this clinic note that are critical to medical decision making have been carefully reviewed and included from a prior clinic note dated: March 19, 2023 (Levon) Additional Clinicians involved in Sanna Rendon's care: Jorge Mcwilliams, Humaira Gaviria, VIRTUAL VISIT PROGRESS NOTE This is a virtual visit using [employer] Video Visit. It required patient- provider interaction for the medical decision making as documented below. I have communicated my name and active licensure. The patient's identity and physical location wereverified at the time of this visit. Either the patient or their legal corporate sales representative has been informed of the risks and benefits of -- and alternatives to -- treatment through a remote evaluation andconsents to proceed with the evaluation remotely. CC: hypercoag state. ASSESSMENT: 37 year old woman 25 weeks presents with a prior history of CVA in 2016 and anantiphospholipid antibody that was identified much later in 2018. These were found in [place], [place]. I don't have access to these [...] rash shortly before presenting to [facility] in 2016 with headaches and was diagnosed [...] and stayed on Lovenox Hgb 13.1 @ [facility] Recommended ER if persisting bleeding but she [...] and at age 69. Both lived in [place], [place] - but she was adopted. She was not able to see ID in October and will be seeing Dr. Baugh next week. Also will have her see Dr. Hamlin for her clotting disorder and make any other recommendations to optimize her treatment. Updated Visit, October 08, 2020: Telephone only Received call from pt stating she was seen in [facility] for numbness in her chest, throat, and extremities, and sob which has been worsening over the last week. We arranged a telephone visit for her franci questions with me. Sanna Rendon is a 34 year old female seen for Hypercoagulable state and recent concerns and symptoms that required her to be seen at [facility]. She went to the ER with Gradual worsening of breathing after progressive tingling of fingers and legs. She currently remains very fatigued even though she is sleeping well. Now recalls that before her stroke she remembers having a bull's eye rash and was seen with severe headaches in [place], [place] - was found to have a [...] a root canal and was sent to [facility] for MRI which was negative but non-contrasted. [...] back to January 2016 in [facility] where she had persisting headaches and slurred speech followed by lower extremity weakness. This took a few months to resolve and she is back to her normal state of being but some point in time during her her next she was seen by Dr. Humera Hyde in [place] as well and was found to have [...] CPE Hematology and Oncology Services Provided at: [place], [place] CC: MD Chalino Dayy Spencer Quinno, [address] [place] [address] Humaira Gaviria MD [address] [place] [address] MD Cosmo Kingston MD Michael Blank, MD documented in this encounterLouis Stokes [facility] Center02-01-2024 Instructions* Patient Instructions* Kristofer Calix [...] TSH, Calcium with CMP documented in this encounterLouis Stokes Cleveland Va [facility] Center01-26-2024 Hospital Discharge instructions Patient Education [...] your ears completely after. General instructions Take qtiu-kmt-awjcwvt and prescription medicines only as told by [...] provider. Document Revised: 06/27/2021 Document Reviewed: 06/27/2021 [employer]ov[employer] Patient Education 2022 [employer]. 05/25/2023 12:02:06 Dyshidrotic Eczema Dyshidrotic Eczema Dyshidrotic [...] care provider who specializes in skin conditions (agricultural sales representative) tohelp diagnose and treat this condition. How [...] locks in moisture. Medicines Take and apply llmc-kjq-lwhgwcc and prescription medicines only as told by [...] provider. Document Revised: 01/24/2021 Document Reviewed: 01/24/2021 [employer] Patient Education 2022 [employer]. 05/25/2023 12:02:02 Allergies, Adult, Lagy-zp-Dych Allergies, Adult An allergy means that your [...] instructions at home: Medicines Take or apply uerj-dlr-xbinzqr and prescription medicines only as told by [...] to the hospital. Summary Take or apply lahv-xof-drlfucu and prescription medicines only as told by [...] provider. Document Revised: 02/25/2020 Document Reviewed: 02/25/2020 [employer] Patient Education 2022 [employer]. Follow Up Care 05/21/2023 12:21:27 With:PRAVEEN RESENDEZ FAAFP, CHRIS Perez, PED Address: [address], [place] [address]- When:Within 2 Month(s) [facility] 11-20-2023 History of Present illness Narrative* Kristofer Calix MD - 03/19/2023 4:45 PM EST Images from the original note were not included. NAME: Sanna Rendon CLINIC NO.: [id number] DATE OF SERVICE: March 19, 2023 (Levon) [...] visit. Either the patient or their legal corporate sales representative has been informed of the risks and benefits of -- and alternatives to -- treatment through a remote evaluation andconsents to proceed with the evaluation remotely. CC: hypercoag state. ASSESSMENT: 37 year old woman 25 weeks presents with a prior history of CVA in 2016 and anantiphospholipid antibody that was identified much later in 2018. These were found in [place], [place]. I don't have access to these [...] rash shortly before presenting to [facility] in 2016 with headaches and was diagnosed [...] and stayed on Lovenox Hgb 13.1 @ [facility] Recommended ER if persisting bleeding but she [...] at age 69. Both lived in [facility] but she was adopted. She was not able to see ID in October and will be seeing Dr. Baugh next week. Also will have her see Dr. Hamlin for her clotting disorder and make any other recommendations to optimize her treatment. Updated Visit, October 08, 2020: Telephone only Received call from pt stating she was seen in [facility] for numbness in her chest, throat, and extremities, and sob which has been worsening over the last week. We arranged a telephone visit for her toreview questions with me. Sanna Rendon is a 34 year old female seen for Hypercoagulable state and recent concerns and symptoms that required her to be seen at [facility]. She went to the ER with Gradual worsening of breathing after progressive tingling of fingers and legs. She currently remains very fatigued even though she is sleeping well. Now recalls that before her stroke she remembers having a bull's eye rash and was seen with severe headaches in [facility] was found to have a stroke [...] a root canal and was sent to [facility] for MRI which was negative but non-contrasted. [...] back to January 2016 in [facility] where she had persisting headaches and slurred speech followed by lower extremity weakness. This took a few months to resolve and she is back to her normal state of being but some point in time during her her next she was seen by Dr. Humera Hyde in [place] as well and was found to have [...] CPE Hematology and Oncology Services Provided at: [place], [place] CC: MD Wilton Day, [address] [place] [address] Humaira Gaviria MD [address] [place] [address] MD Cosmo Kingston MD Michael Blank, MD documented in this encounterLouis Stokes Cleveland [facility] Center11-20-2023 Instructions* Patient Instructions* Kristofer Calix MD - 03/19/2023 4:44 PM EST Continue Lovenox - patient prefers 40 mg (rather than rec 80mg) Take B12 supplement in the form of a sublingual tablet. Take Vitamin D3 5000 international unit(s) daily Check labs in 8 weeks Phone / Virtual call after documented in this encounterLouis Stokes Cleveland [facility] Center10-19-2023 Hospital Discharge instructions Patient Education 02/15/2023 10:13:08 Ear Drops, Adult, Iqhp-de-Zqok Ear Drops, Adult Your doctor has found [...] cannot use soap and water, use hand solar sales energy advisor. 2.Make sure your ears are clean and [...] you cannot use soapand water, use hand solar sales energy advisor. Follow these instructions at home: Use the [...] provider. Document Revised: 02/11/2020 Document Reviewed: 02/11/2020 Renov[employer] Patient Education 2022 [employer]. 02/15/2023 10:13:05 Otitis Externa, Jlun-rk-Lhep Otitis Externa Otitis externa is an infection [...] if you start to feel better. Take utyr-brq-aiedoaj and prescription medicines only as told by [...] provider. Document Revised: 06/29/2021 Document Reviewed: 06/29/2021 [employer]ov[employer] Patient Education 2022 [employer]. Follow Up Care 02/14/2023 12:28:12 With:PRAVEEN RESENDEZ FAAFP, Penelope Tony, CHRIS, PED Address: [address], [facility] [place] [address]- When:Within 2 Month(s) [facility] 08-25-2023 Hospital Discharge instructions [...] including vitamins, herbs, eye drops, creams, and fltv-xuv-mwvrsok medicines. ?Whether you are or may be [...] provider. Document Revised: 12/28/2021 Document Reviewed: 11/19/2020 [employer]ov[employer] Patient Education 2022 [employer]. 12/22/2022 15:19:23 Fatigue Fatigue If you have [...] Follow these instructions at home: Medicines Take dqni-pmv-survraz and prescription medicines only as told by [...] the National Suicide Prevention Lifeline at or 359. This is open 24 hours a day. Text the Crisis Text Line at 281286. Summary If you have fatigue, you feel [...] provider. Document Revised: 02/06/2022 Document Reviewed: 02/06/2022 [email or web address] Patient Education 2022 [employer]s. Follow Up Care 12/22/2022 10:22:02 With:Shirlene OBINNA Lourdes Baltazar Address: [address], [place] [address]- When: only if needed [facility] 08-25-2023 Instructions* Patient Instructions* Kristofer Calix MD - 12/22/2022 10:13 AM EDT Continue Lovenox - patient prefers 40 mg (rather than rec 80mg) Take B12 supplement in the form of a sublingual tablet. Take Vitamin D3 5000 international unit(s) daily Check labs in 8 weeks Phone / Virtual call after documented in this encounterLouis Stokes Cleveland [facility] Center08-25-2023 History of Present illness Narrative* Kristofer Calix MD - 12/22/2022 9:55 AM EDT Images from the original note were not included. Kristofer Calix MD NAME: Sanna Rendon CLINIC NO.: [id number] DATE OF SERVICE: December 22, 2022 (Levon) [...] visit. Either the patient or their legal corporate sales representative has been informed of the risks and benefits of -- and alternatives to -- treatment through a remote evaluation andconsents to proceed with the evaluation remotely. CC: hypercoag state. ASSESSMENT: 37 year old woman with a prior history of CVA in 2016 and an antiphospholipid antibody that was identified much later in 2018. These were found in [place], [place]. I don't have access to these [...] rash shortly before presenting to [facility] in 2016 with headaches and was diagnosed [...] and stayed on Lovenox Hgb 13.1 @ [facility] Recommended ER if persisting bleeding but she [...] at age 69. Both lived in [facility] but she was adopted. She was not able to see ID in October and will be seeing Dr. Baugh next week. Also will have her see Dr. Hamlin for her clotting disorder and make any other recommendations to optimize her treatment. Updated Visit, October 08, 2020: Telephone only Received call from pt stating she was seen in [facility] for numbness in her chest, throat, and extremities, and sob which has been worsening over the last week. We arranged a telephone visit for her toreview questions with me. Sanna Rendon is a 34 year old female seen for Hypercoagulable state and recent concerns and symptoms that required her to be seen at [facility]. She went to the ER with Gradual worsening of breathing after progressive tingling of fingers and legs. She currently remains very fatigued even though she is sleeping well. Now recalls that before her stroke she remembers having a bull's eye rash and was seen with severe headaches in [place], [place] - was found to have a [...] a root canal and was sent to [facility] for MRI which was negative but non-contrasted. [...] back to January 2016 in [facility] where she had persisting headaches and slurred speech followed by lower extremity weakness. This took a few months to resolve and she is back to her normal state of being but some point in time during her her next she was seen by Dr. Humera Hyde in [place] as well and was found to have [...] CPE Hematology and Oncology Services Provided at: [place], [place] CC: MD Wilton Day, [address] [place] [address] Humaira Gaviria MD [address] [place] [facility] [place] [address] MD Cosmo Kingston MD Michael Blank, MD documented in this encounterLouis Stokes Cleveland [facility] Center08-16-2023 Miscellaneous Notes* Telephone Encounter - [...] later time. Roberta Haskins documented in this encounterLouis Stokes Cleveland [facility] Center06-23-2023 Hospital Discharge instructions Patient Education [...] health care provider or diet and nutrition aide (dietitian). This may include: ?Eating fewer calories. [...] provider. Document Revised: 06/12/2021 Document Reviewed: 06/12/2021 [employer]ov[employer] Patient Education 2022 [employer]. 10/20/2022 10:37:18 Preventing Type 2 Diabetes Mellitus [...] a registered dietitian. This diet and nutrition aide can help you make a healthy eating plan and help you understand portion sizes and food labels. Where to find support Ask your health care provider to recommend a registered dietitian, a certified diabetes care and agricultural education instructor, or a weight loss program. Look for local or online weight loss groups. Join a gym, fitness club, or outdoor activity group, such as a walking club. Where to find more information For help and guidance and to learn more about diabetes and diabetes prevention, visit: [place] Diabetes Association (ADA): www.diabetes.org National [place] of Diabetes and Digestive and Kidney Diseases: www.niddk.nih.gov To learn more about healthy eating, visit: U.S. Department of Agriculture ([employer]): www.Lexityplate.gov Office of Disease Prevention and Health Promotion [...] provider. Document Revised: 07/11/2021 Document Reviewed: 07/11/2021 [employer]ov[employer] Patient Education 2022 [employer] Inc. 10/20/2022 10:37:17 Preventing Hypoglycemia Preventing Hypoglycemia Hypoglycemia [...] your hypoglycemia. Where to find more information [place] Diabetes Association: www.diabetes.org National [place] of Diabetes and Digestive and Kidney Diseases: [...] provider. Document Revised: 03/17/2021 Document Reviewed: 03/17/2021 [employer]ov[employer] Patient Education 2022 [employer]. 10/20/2022 10:37:16 Gestational Diabetes Mellitus, Diagnosis, Deyr-vj-Crcg Gestational Diabetes Mellitus, Diagnosis Gestational diabetes mellitus [...] follow-up visits. Where to find more information [place] Diabetes Association (ADA): diabetes.org Association of Diabetes Care & Education Specialists (ADCES): diabeteseducator.org Centers for Disease Control and Prevention (CDC): cdc.gov [place] Association: americanpregnancy.org U.S. Department of Agriculture MyPlate: [...] provider. Document Revised: 09/20/2020 Document Reviewed: 09/20/2020 [employer] Patient Education 2022 [employer]. Follow Up Care 09/19/2022 14:47:09 With:PRAVEEN RESENDEZ FAAFP, CHRIS Perez, PED Address: [address] [place] [address] [place] [id number] When:Within 3 Month(s) [facility] 06-01-2023 History of Present illness Narrative* Kristofer Calix MD - 09/28/2022 5:00 PM EDT Images from the original note were not included. Kristofer Calix MD NAME: Sanna Rendon CLINIC NO.: [id number] DATE OF SERVICE: September 28, 2022 (Levon) [...] visit. Either the patient or their legal corporate sales representative has been informed of the risks and benefits of -- and alternatives to -- treatment through a remote evaluation andconsents to proceed with the evaluation remotely. CC: hypercoag state. ASSESSMENT: 36 year old woman 25 weeks presents with a prior history of CVA in 2016 and anantiphospholipid antibody that was identified much later in 2018. These were found in [place], [place]. I don't have access to these [...] rash shortly before presenting to [facility] in 2016 with headaches and was diagnosed [...] and stayed on Lovenox Hgb 13.1 @ [facility] [place] ER if persisting bleeding but she [...] at age 69. Both lived in [facility] but she was adopted. She was not able to see ID in October and will be seeing Dr. Baugh next week. Also will have her see Dr. Hamlin for her clotting disorder and make any other recommendations to optimize her treatment. Updated Visit, October 08, 2020: Telephone only Received call from pt stating she was seen in [facility] for numbness in her chest, throat, and extremities, and sob which has been worsening over the last week. We arranged a telephone visit for her chanw questions with me. Sanna Rendon is a 34 year old female seen for Hypercoagulable state and recent concerns and symptoms that required her to be seen at [facility]. She went to the ER with Gradual worsening of breathing after progressive tingling of fingers and legs. She currently remains very fatigued even though she is sleeping well. Now recalls that before her stroke she remembers having a bull's eye rash and was seen with severe headaches in [place], [place] - was found to have a [...] a root canal and was sent to [facility] for MRI which was negative but non-contrasted. [...] back to January 2016 in [facility] where she had persisting headaches and slurred speech followed by lower extremity weakness. This took a few months to resolve and she is back to her normal state of being but some point in time during her her next she was seen by Dr. Humera Hyde in [place] as well and was found to have [...] blood loss (chronic) 03/27/2022 Kidney stones early ' Missed menses Nausea and vomiting Rectal bleeding [...] CPE Hematology and Oncology Services Provided at: [place], [place] CC: MD Wilton Day, [address] [place] [address] Humaira Gaviria MD [address] [place] [id number] MD Cosmo Kingston MD Michael Blank, MD documented in this encounterLouis Stokes Cleveland Va [facility] Center05-24-2023 Miscellaneous Notes* Telephone Encounter - Cheri Jasso - 09/20/2022 7:06 AM EDT Cxed appt * Telephone Encounter - Valeri Yeung RN - 09/19/2022 3:29 PM EDT Patient would like to have labs drawn at [facility]. Called [facility] lab to get fax number. Lab orders faxed to [phone] Valeri Yeung RN PSS: Can you cancel lab appointment for 09/21/22 here. Thanks. Valeri Yeung RN documented in this encounterLouis Stokes Cleveland Va Medical Center04-04-2023 Instructions* Patient Instructions* Kristofer Calix MD - 08/01/2022 10:56 AM EDT Continue Lovenox - patient prefers 40 mg (rather than rec 80mg) 8 weeks - labs Phone / Virtual call after documented in this encounterLouis Stokes Cleveland Va [facility] Center03-30-2023 History of Present illness Narrative* Kristofer Calix MD - 07/27/2022 1:18 PM EDT NAME: Sanna Rendon CLINIC NO.: [id number] DATE OF SERVICE: July 27, 2022 (Levon) [...] later in 2018. These were found in [place], [place]. I don't have access to these [...] rash shortly before presenting to [facility] in 2016 with headaches and was diagnosed [...] and at age 69. Both lived in [place], [place] - but she was adopted. She was not able to see ID in October and will be seeing Dr. Baugh next week. Also will have her see Dr. Hamlin for her clotting disorder and make any other recommendations to optimize her treatment. Updated Visit, October 08, 2020: Telephone only Received call from pt stating she was seen in [facility] [place] for numbness in her chest, throat, and extremities, and sob which has been worsening over the last week. We arranged a telephone visit for her franci questions with me. Sanna Rendon is a 34 year old female seen for Hypercoagulable state and recent concerns and symptoms that required her to be seen at [facility]. She went to the ER with Gradual worsening of breathing after progressive tingling of fingers and legs. She currently remains very fatigued even though she is sleeping well. Now recalls that before her stroke she remembers having a bull's eye rash and was seen with severe headaches in [place], [place] - was found to have a [...] a root canal and was sent to [facility] [place] MRI which was negative but non-contrasted. [...] back to January 2016 in [facility] where she had persisting headaches and slurred speech followed by lower extremity weakness. This took a few months to resolve and she is back to her normal state of being but some point in time during her her next she was seen by Dr. Humera Hyde in [place] as well and was found to have [...] which included preparing to see the patient, [id number]-yp-[id number] patient care, completing clinical documentation, obtaining and/or reviewing separately obtained history, performing a medically appropriate examination, counseling and educating the pat ient/family/caregiver, ordering medications, tests, or procedures, independently interpreting results (not separately reported), and care coordination (not separately reported). Kristofer Calix MD, CPE Hematology and Oncology Services Provided at: [place], [place] CC: MD Wilton Day, [address] [place] [address] Humaira Gaviria MD [address] [facility] [id number] MD Cosmo Kingston MD Michael Blank, MD documented in this encounterLouis Stokes Cleveland Va [facility] Center12-07-2022 History of Present illness Narrative* [...] to standard infusion rate. documented in this encounterLouis Stokes Cleveland Va Medical Center12-06-2022 Miscellaneous Notes* Telephone Encounter - [...] questions answered. Pt transferred to front end web designer at her request so she can reschedule dates of IV iron d/t otherappts. FELY: Pt would like to have Venofer ordered and not get Monoferric even if approved. Please place orders if agreeable. Meme Gonzalez RN documented in this encounterLouis Stokes Cleveland Va Medical Center12-01-2022 Miscellaneous Notes* Telephone Encounter - [...] were not included. Kristofer Calix MD [facility] [...] when available this week documented in this encounterLouis Stokes Cleveland Va Medical Center11-28-2022 Instructions* Patient Instructions* Kristofer Calix MD - 03/27/2022 2:51 PM EST Continue Lovenox - patient prefers 40 mg (rather than rec 80mg) Consider IV iron Triage nurse to please call iron results when available this week Will recheck antiphospholipid antibodies as ordered and every 6 months. RTC in 8 weeks - labs same day. documented in this encounterLouis Stokes Cleveland Va Medical Center11-28-2022 History of Present illness Narrative* Kristofer Calix MD - 03/27/2022 2:15 PM EST Images from the original note were not included. NAME: Sanna Rendon CLINIC NO.: [id number] DATE OF SERVICE: March 27, 2022 (Levon) Some elements in this clinic note that are critical to medical decision making have been carefully reviewed and included from a prior clinic note dated: January 30, 2022 (Levon) Additional Clinicians involved in Sanna Renodn's care: Jorge Mcwilliams, Humaira Gaviria, CC: hypercoag state. ASSESSMENT: 36 year old woman 25 weeks presents with a prior history of CVA in 2016 and anantiphospholipid antibody that was identified much later in 2018. These were found in [place], [place]. I don't have access to these [...] rash shortly before presenting to [facility] in 2016 with headaches and was diagnosed [...] at age 69. Both lived in [facility] but she was adopted. She was not able to see ID in October and will be seeing Dr. Baugh next week. Also will have her see Dr. Hamlin for her clotting disorder and make any other recommendations to optimize her treatment. Updated Visit, October 08, 2020: Telephone only Received call from pt stating she was seen in [facility] [place] for numbness in her chest, throat, and extremities, and sob which has been worsening over the last week. We arranged a telephone visit for her toreview questions with me. Sanna Rendon is a 34 year old female seen for Hypercoagulable state and recent concerns and symptoms that required her to be seen at [facility]. She went to the ER with Gradual worsening of breathing after progressive tingling of fingers and legs. She currently remains very fatigued even though she is sleeping well. Now recalls that before her stroke she remembers having a bull's eye rash and was seen with severe headaches in [facility] was found to have a stroke [...] a root canal and was sent to [facility] [place] MRI which was negative but non-contrasted. [...] back to January 2016 in [facility] where she had persisting headaches and slurred speech followed by lower extremity weakness. This took a few months to resolve and she is back to her normal state of being but some point in time during her her next she was seen by Dr. Humera Hyde in [place] as well and was found to have [...] which included preparing to see the patient, qtiu-ei-ajwj patient care, completing clinical documentation, obtaining and/or reviewing separately obtained history, performing a medically appropriate examination, counseling and educating the pat ient/family/caregiver, ordering medications, tests, or procedures, independently interpreting results (not separately reported), and care coordination (not separately reported). Kristofer Calix MD, CPE Hematology and Oncology Services Provided at: [place], [place] CC: Dr. Praveen MD [address] [place] [address] Humaira Gaviria MD [address] [place] [id number] MD Cosmo Kingston MD Michael Blank, MD documented in this encounterLouis Stokes Cleveland [facility] Center10-03-2022 Instructions* Patient Instructions* Kristofer Calix MD - 01/30/2022 12:[address] Hamlin's expertise and will prescribe Lovenox - patient prefers 40 mg (rather than rec 80mg) Will recheck antiphospholipid antibodies as ordered and every 6 months. RTC in 8 weeks - labs same day. documented in this encounterLouis Stokes Cleveland [facility] Center10-03-2022 History of Present illness Narrative* Kristofer Calix MD - 01/30/2022 11:59 AM EDT Images from the original note were not included. NAME: Sanna Rendon CLINIC NO.: [id number] DATE OF SERVICE: January 30, 2022 Some [...] later in 2018. These were found in [place], [place]. I don't have access to these [...] rash shortly before presenting to [facility] in 2016 with headaches and was diagnosed [...] at age 69. Both lived in [facility] but she was adopted. She was not able to see ID in October and will be seeing Dr. Baugh next week. Also will have her see Dr. Hamlin for her clotting disorder and make any other recommendations to optimize her treatment. Updated Visit, October 08, 2020: Telephone only Received call from pt stating she was seen in [facility] [place] for numbness in her chest, throat, and extremities, and sob which has been worsening over the last week. We arranged a telephone visit for her franci questions with me. Sanna Rendon is a 34 year old female seen for Hypercoagulable state and recent concerns and symptoms that required her to be seen at [facility]. She went to the ER with Gradual worsening of breathing after progressive tingling of fingers and legs. She currently remains very fatigued even though she is sleeping well. Now recalls that before her stroke she remembers having a bull's eye rash and was seen with severe headaches in [facility] was found to have a stroke [...] a root canal and was sent to [facility] [place] MRI which was negative but non-contrasted. [...] back to January 2016 in [facility] where she had persisting headaches and slurred speech followed by lower extremity weakness. This took a few months to resolve and she is back to her normal state of being but some point in time during her her next she was seen by Dr. Humera Hyde in [place] as well and was found to have [...] which included preparing to see the patient, rpaf-gn-gttn patient care, completing clinical documentation, obtaining and/or reviewing separately obtained history, performing a medically appropriate examination, counseling and educating the pat ient/family/caregiver, and ordering medications, tests, or procedures. Kristofer Calix MD, [place], [place] CC: MD Wilton Day, [address] [place] [address] Humaira Gaviria MD [address] [place] [facility] [place] [address] MD Cosmo Kingston MD Michael Blank, MD documented in this encounterLouis Stokes Cleveland Va Medical Center10-03-2022 Nurse Note* Serina Dawson MA - 01/30/2022 11:55 AM EDT Patient states she may be diagnosed with gestational diabetes, she was from 215 to 52 a couple hours later after eating wheat cereal. She sees OB tomorrow. Serina Dawson MA documented in this encounterLouis Stokes Cleveland Va [facility] Center09-02-2022 Miscellaneous Notes* Telephone Encounter - Tonja Pope RN - 12/30/2021 10:15 AM EDT Call received from Sanna requesting refill of Lovenox 40 mg to be sent to [place] [facility] in [place]. FELY: Please review and approve if you agree. Tonja Chery RN documented in this encounterLouis Stokes Cleveland [facility] Center06-13-2022 Miscellaneous Notes* Telephone Encounter - Meme Easton RN - 10/10/2021 12:15 PM EDT Received call from pt requesting refill of Lovenox 40 mg to be sent to [place] [facility] in [place]. FELY: Pt also states she had one episode of blood in her stool which was dripping blood which concerned her. She is not ready to move to 80 mg of Lovenox at this time. Order pending. Please review and sign if agreeable. Meme Easton RN documented in this encounterLouis Stokes Cleveland [facility] Center05-10-2022 Miscellaneous Notes* Telephone Encounter - Kristofer Calix MD - 09/06/2021 8:29 PM EDT Rigt - Dr. Halmin's message was a little different than his [...] agreeable. Meme Easton RN documented in this encounterLouis Stokes Cleveland [facility] Center05-09-2022 Miscellaneous Notes* Telephone Encounter - [...] advise. Meme Easton RN documented in this encounterLouis Stokes Cleveland [facility] Center04-25-2022 Miscellaneous Notes* Telephone Encounter - [...] Thoughts? Meme Easton RN documented in this encounterLouis Stokes Cleveland Va Medical Center04-22-2022 Hospital Discharge instructions Patient Education [...] including vitamins, herbs, eye drops, creams, and wfjp-ldp-khuzjad medicines. ?Whether you are or may be [...] 02/11/2008 Document Revised: 08/05/2019 Document Reviewed: 02/18/2018 [employer] Patient Education 2020 [employer]. 08/19/2021 13:02:21 Dysuria Dysuria Dysuria is pain [...] alcohol may irritate the prostate. Medicines Take wibg-ypv-goossyz and prescription medicines only as told by [...] 01/12/2005 Document Revised: 03/29/2018 Document Reviewed: 01/31/2018 [employer] Patient Education 2020 [employer] 08/19/2021 13:02:17 Budget-Friendly Healthy Eating Budget-Friendly [...] frozen fruits, and frozen vegetables. Avoid buying kfkkm-ax-wyf foods, such as pre-cut fruits and vegetables [...] 12/18/2014 Document Revised: 04/17/2018 Document Reviewed: 04/17/2018 [employer] Patient Education 2020 [employer]. 08/19/2021 13:02:15 BMI for Adults BMI for [...] height. This can be done either in [place] ([place] or metric measurements. Note that charts are available to help you find your BMI quickly and easily without having to do these calculations yourself. To calculate your BMI in [place] ([place] measurements, your health care provider will: [...] medical problems. BMI can be measured using Bangladeshi measurements or metric measurements. To interpret your [...] 12/26/2004 Document Revised: 03/29/2018 Document Reviewed: 02/27/2018 [employer] Patient Education 2020 [employer] 08/19/2021 13:02:11 Paresthesia Paresthesia Paresthesia is [...] fried or sweet foods. General instructions Take jkvb-eci-fcutior and prescription medicines only as told by [...] 04/06/2003 Document Revised: 05/12/2019 Document Reviewed: 04/25/2018 [employer] Patient Education 2020 [employer]. Follow Up Care 08/19/2021 09:17:52 With:PRAVEEN RESENDEZ FAAFP, Penelope Tony, CHRIS, PED Address: [address] [place] [id number]- When:1 to 2 weeks [facility] [place] 04-22-2022 Evaluation + Plan note Future Scheduled Tests Radiology* XR Spine Lumbosacral Minimum 4 Views 08/19/21 [facility]04-07-2022 Miscellaneous Notes* Telephone Encounter - Roberta Haskins - 08/04/2021 3:36 PM EDT Patient is scheduled for 09/[address] Elliott. Roberta Haskins * Telephone Encounter - Roberta Haskins - 08/01/2021 1:05 PM EDT Sent Email to [facility] to refer patient back to Dr. Cosmo Elliott Dx: Primary hypercoagulable state (HCC) Roberta Haskins documented in this encounterLouis Stokes Cleveland Va Medical Center04-04-2022 Nurse Note* Ebony Redding Ma - 08/01/2021 12:48 PM EDT UA ran as ordered. Ebony Redding Ma documented in this encounterLouis Stokes Cleveland [facility] Medical Center03-28-2020 Evaluation + Plan note Future Appointments Appointment Date:07/25/2024 02:30:00 PM Scheduled Provider: Location[facility] Appointment Type:CV EKG (FT) Appointment Date:07/25/2024 03:00:00 PM Scheduled Provider: Location[facility] Appointment Type:CV Holter/Event (FT) Appointment Date:09/09/2024 08:20:00 AM Scheduled Provider:Penelope CASAS DO, FAAFP Location:[facility] Appointment Type:FM Open Future Scheduled Tests Laboratory* HgbA1c 08/05/24 * HgbA1c 11/04/24 Radiology* CT Soft Tissue Neck w/ Contrast 11/12/23 [facility] 03-28-2020 Evaluation + Plan note Future Appointments Appointment Date:07/25/2024 02:30:00 PM Scheduled Provider: Location:[facility] Appointment Type:CV EKG (FT) Appointment Date:07/25/2024 03:00:00 PM Scheduled Provider: Location[facility] Appointment Type:CV Holter/Event (FT) Appointment Date:09/09/2024 08:20:00 AM Scheduled Provider:Penelope CASAS DO, FAAFP Location:[facility] Appointment Type:FM Open Diagnostic Tests Pending * Hepatitis B Surface Antigen 07/09/24 * HCV Antibody RFX to Quant PCR 07/09/24 * Hep Be Ag 07/09/24 * HIV Screen 4th Generation wRfx 07/09/24 Future Scheduled Tests Laboratory* HgbA1c 08/05/24 * HgbA1c 11/04/24 Radiology* CT Soft Tissue Neck w/ Contrast 11/12/23 [facility] Evaluation + Plan note Future Appointments Appointment Date:11/08/2021 12:40:00 PM Scheduled Provider:Penelope CASAS DO, FAAFP Location:[facility] Appointment Type: Open Future Scheduled Tests Radiology* XR Spine Lumbosacral Minimum 4 Views 08/19/21 [facility] [place] Evaluation + Plan note Future Appointments Appointment Date:11/08/2021 12:40:00 PM Scheduled Provider:Penleope CASAS DO, FAAFP Location:[facility] Appointment Type: Open Diagnostic Tests Pending * Urine Culture 08/19/21 Future Scheduled Tests Radiology* XR Spine Lumbosacral Minimum 4 Views [facility]19[facility] App[facility]ments Appointment Date:09/21/2022 10:00:00 AM Scheduled Provider:Penelope CASAS DO, FAAFP Location:[facility] App[facility]ments Appointment Date:10/20/2022 09:40:00 AM Scheduled Provider:Penelope CASAS DO, FAAFP [facility] Appointment Date:01/26/2023 10:40:00 AM Scheduled Provider:Penelope CASAS DO, FAAFP Location:[facility] Appointment Type:[facility] Evaluation + Plan note Future Appointments Appointment Date:04/17/2023 02:20:00 PM Scheduled Provider:Penelope CASAS DO, FAAFP Location:[facility] Appointment Type: Open Future Scheduled Tests Laboratory* HgbA1c 02/15/23 * Thyroid Stimulating Hormone 02/15/23 * Thyroid Stimulating Hormone 01/11/23 [facility] Primary [facility] evaluation + Plan note Future Appointments Appointment Date:07/24/2023 01:20:00 PM Scheduled Provider:Penelope CASAS DO, FAAFP Location:[facility] Appointment Type:FM Open Future Scheduled Tests Laboratory* HgbA1c 02/15/23 * Thyroid Stimulating Hormone 02[facility]15[facility] App[facility]ments Appointment Date:07/24/2023 01:20:00 PM Scheduled Provider:Penelope CASAS DO, FAAFP Location:[facility] Appointment Type:FM Open [facility] Primary [facility] Evaluation + Plan note Future Appointments Appointment Date:12/03/2023 12:40:00 PM Scheduled Provider:Penelope CASAS DO, FAAFP Location:[facility] Appointment Type:FM Open Future Scheduled Tests Laboratory* HgbA1c 08/03/23 [facility] Evaluation + Plan note Future Appointments Appointment Date:12/03/2023 12:40:00 PM Scheduled Provider:Penelope CASAS DO, FAAFP Location:[facility] Appointment Type:FM Open Future Scheduled Tests Laboratory* Sedimentation Rate Automated 11/09/23 * HgbA1c 08/03/23 * Amylase Level 11/09/23 * Cortisol 11/09/23 * C-Reactive Protein 11/09/23 * T3 Free 11/09/23 * Thyroid Stimulating Hormone 11/09/23 * Free T4 11/09/23 * Vitamin B12 Level 11/09/23 Radiology* MRI Brain w/o Contrast 11/09/23 * MRI Orbit Face Neck w/o contrast 11/09/23 [facility] Evaluation + Plan note Future Appointments Appointment Date:01/11/2024 08:15:00 PM Scheduled Provider: [facility]oint[facility] Type:CELL TESTER Sleep Study PSG () Appointment Date:01/29/2024 01:20:00 PM Scheduled Provider:Penelope CASAS DO, FAAFP Location:[facility] Appointment Type: Open Diagnostic Tests Pending * Cortisol 12/06/23 * T3 Free 12/06/23 Future Scheduled Tests Laboratory* HgbA1c 08/03/23 Radiology* CT Soft Tissue Neck w/ Contrast 11/12/23 [facility] evaluation + Plan note Future Appointments Appointment Date:05/16/2024 11:40:00 AM Scheduled Provider:Penelope CASAS DO, FAAFP Location:[facility] Appointment Type:FM Open Future Scheduled Tests Laboratory* HgbA1c 02/05/24 * HgbA1c 05/07/24 * HgbA1c 08/05/24 * HgbA1c 11/04/24 * HgbA1c 08/03/23 * HIV Screen 4th Generation wRfx 02/05/24 * HIV Screen 4th Generation wRfx 02/05/24 * Lipid Panel 02/05/24 Radiology* CT Soft Tissue Neck w/ Contrast 11/12/23 [facility] evaluation + Plan note Future Appointments Appointment Date:05/16/2024 11:40:00 AM Scheduled Provider:Penelope CASAS DO, FAAFP Location:[facility] Appointment Type:FM Open Future Scheduled Tests Laboratory* HgbA1c 05/07/24 * HgbA1c 08/05/24 * HgbA1c 11/04/24 Radiology* CT Soft Tissue Neck w/ Contrast 11/12/23 [facility] evaluation + Plan note Future Appointments Appointment Date:05/16/2024 11:40:00 AM Scheduled Provider:Penelope CASAS DO, FAAFP Location:[facility] Appointment Type:FM Open Diagnostic Tests Pending * HIV Screen 4th Generation wRfx 02/23/24 Future Scheduled Tests Laboratory* HgbA1c 05/07/24 * HgbA1c 08/05/24 * HgbA1c 11/04/24 Radiology* CT Soft Tissue Neck w/ Contrast 11/12/23 [facility] evaluation + Plan note Future Appointments Appointment Date:05/16/2024 11:40:00 AM Scheduled Provider:Penelope CASAS DO, FAAFP Location:[facility] Appointment Type:FM Open Future Scheduled Tests Laboratory* HgbA1c 08/05/24 * HgbA1c 11/04/24 Radiology* CT Soft Tissue Neck w/ Contrast 11/12/23 [facility] evaluation + Plan note Future Appointments Appointment Date:05/16/2024 11:40:00 AM Scheduled Provider:Penelope CASAS DO, FAAFP Location:[facility] Appointment Type:FM Open Diagnostic Tests Pending * Urine Culture 03/01/24 Future Scheduled Tests Laboratory* HgbA1c 08/05/24 * HgbA1c 11/04/24 Radiology* CT Soft Tissue Neck w/ Contrast 11/12/23 [facility] evaluation + Plan note Future Appointments Appointment Date:07/07/2024 02:20:00 PM Scheduled Provider:Penelope CASAS DO, FAAFP Location:[facility] Appointment Type:FM Open Future Scheduled Tests Laboratory* HgbA1c 08/05/24 * HgbA1c 11/04/24 Radiology* CT Soft Tissue Neck w/ Contrast 11/12/23 [facility] evaluation + Plan note Future Appointments Appointment Date:09/09/2024 08:20:00 AM Scheduled Provider:Penelope CASAS DO, FAAFP Location:[facility] Appointment Type:FM Open Future Scheduled Tests Laboratory* HgbA1c 08/05/24 * HgbA1c 11/04/24 Radiology* CT Soft Tissue Neck w/ Contrast 11/12/23 [facility] evaluation note* Diagnosis Infective urethritis- Primary Urethritis, unspecified [facility] Diagnosis Primary hypercoagulable state (HCC) Primary hypercoagulable state CVA, old, speech/language deficit Speech and language deficit, unspecified, 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 Hyposmolality and/or hyponatremia documented [facility] this [facility] Diagnosis Primary hypercoagulable state (HCC) Primary hypercoagulable state CVA, old, speech/language deficit Speech and language deficit, unspecified, 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 Hyposmolality and/or hyponatremia documented in this [facility] Diagnosis Primary hypercoagulable state (HCC)- Primary Primary hypercoagulable state CVA, old, speech/language deficit Speech and language deficit, unspecified, late effect of cerebrovascular disease Antiphospholipid antibody syndrome (HCC) Primary hypercoagulable state Anemia, unspecified type [facility] this [facility]* Diagnosis Iron deficiency anemia secondary to blood loss (chronic) Iron deficiency anemia of Anemia of mother, complicating , childbirth, or the puerperium, unspecified as to episode of care documented [facility] this [facility] 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 Iron deficiency anemia of Anemia of mother, complicating , childbirth, or the puerperium, unspecified as to episode of care documented in this [facility]* Diagnosis Primary hypercoagulable state (HCC) Primary hypercoagulable state CVA, old, speech/language deficit Speech and language deficit, unspecified, 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 Hyposmolality and/or hyponatremia documented in this [facility] 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 Iron deficiency anemia of Anemia of mother, complicating , childbirth, or the puerperium, unspecified as to episode of care documented in this [facility]* Diagnosis Primary hypercoagulable state (HCC) Primary hypercoagulable state CVA, old, speech/language deficit Speech and language deficit, unspecified, 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 Hyposmolality and/or hyponatremia [facility] Diagnosis Primary hypercoagulable state (HCC)- Primary Primary hypercoagulable state 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, old, speech/language deficit Speech and language deficit, unspecified, late effect of cerebrovascular disease documented in this [facility]* Diagnosis Primary hypercoagulable state (HCC) Primary hypercoagulable state CVA, old, speech/language deficit Speech and language deficit, unspecified, 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 Hyposmolality and/or hyponatremia documented in this encounter [facility] Diagnosis Primary hypercoagulable [...] Primary hypercoagulable state [facility] Diagnosis Primary hypercoagulable state (HCC)- Primary Primary hypercoagulable state CVA, old, speech/language deficit Speech and language deficit, unspecified, late effect of cerebrovascular disease Hypercalcemia Vitamin D deficiency Unspecified vitamin D deficiency Iron deficiency anemia secondary to blood loss (chronic) Malaise and fatigue Other malaise and fatigue [facility] Diagnosis Vitamin D deficiency- Primary Unspecified vitamin D deficiency 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) Antiphospholipid antibody syndrome (HCC) Primary hypercoagulable state Malaise and fatigue Other malaise and fatigue [facility]* Diagnosis Vitamin D deficiency- Primary Unspecified vitamin D deficiency 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) [facility]* 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 [facility] Diagnosis Iron deficiency anemia of - Primary Anemia of mother, complicating , childbirth, or the puerperium, unspecified as to episode of care Iron deficiency anemia secondary to blood loss (chronic) [facility]* Diagnosis Iron deficiency anemia of - Primary Anemia of mother, complicating , childbirth, or the puerperium, unspecified as to episode of care Iron deficiency anemia secondary to blood loss (chronic) [facility] 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 Vitamin D deficiency Unspecified vitamin D deficiency Malaise and fatigue Other malaise and fatigue documented [facility]* Diagnosis Primary hypercoagulable state (HCC) Primary hypercoagulable state CVA, old, speech/language deficit Speech and language deficit, unspecified, 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 Hyposmolality and/or hyponatremia documented in this encounter [facility] Diagnosis Missed menses , unspecified gestational age Encounter for supervision of normal first in first trimester Hypothyroidism (acquired) (CMS/HCC) Unspecified hypothyroidism Low vitamin D level [facility] Diagnosis 14 weeks gestation of Second trimester state, incidental Confirm viability with history of miscarriage, ultrasound Encounter for routine screening for malformation using ultrasonics documented in this encounter [facility] HealthcareEvaluation noteNo assessment information availableKindred Hospital [facility] Work Phone: Evaluation note* Diagnosis Primary hypercoagulable state (HCC)- Primary Primary hypercoagulable state CVA, old, speech/language deficit Speech and language deficit, unspecified, 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) Vitamin D deficiency Unspecified vitamin D deficiency Antiphospholipid antibody syndrome (HCC) Primary hypercoagulable state documented in this encounter [facility]* Diagnosis Follow-up visit after miscarriage Abnormal TSH History of thyroid disease [facility]* Diagnosis Vaginal bleeding Other specified noninflammatory disorder of vagina Dizziness Dizziness and giddiness Abnormal TSH Vaginal discharge Leukorrhea, not specified as infective Pelvic pain in female Unspecified symptom associated with female genital organs [facility]* Diagnosis Irregular menstrual cycle [facility]* Diagnosis Primary hypercoagulable state (HCC) Primary hypercoagulable state CVA, old, speech/language deficit Speech and language deficit, unspecified, 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 Hyposmolality and/or hyponatremia documented in this encounter [facility]* Diagnosis Antiphospholipid antibody positive- Primary Other and unspecified nonspecific immunological findings Iron deficiency anemia secondary to blood loss (chronic) Malaise and fatigue Other malaise and fatigue Vitamin D deficiency Unspecified vitamin D deficiency documented [facility]* Diagnosis Amenorrhea Absence of menstruation Missed menses , unspecified gestational age Encounter for supervision of normal first in first trimester Thyroid disease (CMS/HCC) Unspecified disorder of thyroid documented in this encounter [facility]* Diagnosis Gestational diabetes mellitus (GDM), antepartum, gestational diabetes method of control unspecified- Primary [facility]* Diagnosis Primary hypercoagulable state (HCC) Primary hypercoagulable state CVA, old, speech/language deficit Speech and language deficit, unspecified, 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 Hyposmolality and/or hyponatremia [facility] Diagnosis Primary hypercoagulable state (HCC)- Primary Primary hypercoagulable state CVA, old, speech/language deficit Speech and language deficit, unspecified, 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 Hyposmolality and/or hyponatremia Personal history of TIA (transient ischemic attack) Transient ischemic attack (TIA), and cerebral infarction without residual deficits documented in this encounter [facility] note* Diagnosis Second trimester ([facility]) state, incidental 13 weeks gestation of ([facility]) Thyroid disease Unspecified disorder of thyroid Multigravida of advanced maternal age in second trimester ([facility]) Gestational diabetes mellitus (GDM), antepartum, gestational diabetes method of control unspecified([facility]) Elevated glucose tolerance test Impaired glucose tolerance test documented in this encounter [facility]* Diagnosis Gestational diabetes mellitus (GDM), antepartum, gestational diabetes method of control unspecified- Primary [facility] encounter [facility]* Diagnosis Second trimester ([facility]) state, incidental 16 weeks gestation of ([facility]) Screening, , for anatomic survey ([facility]) Encounter for anatomic survey Vaginal discharge Leukorrhea, not specified as infective Sinus headache Headache documented in this encounter [facility]* Diagnosis Insulin controlled gestational diabetes mellitus (GDM) in second trimester- Primary [facility] encounter [facility]* Diagnosis 19 weeks gestation of ([facility]) Second trimester ([facility]) state, incidental Thyroid disease Unspecified disorder of thyroid Multigravida of advanced maternal age in second trimester ([facility]) Gestational diabetes mellitus (GDM), antepartum, gestational diabetes method of control unspecified([facility]) documented in this encounter [facility]* Diagnosis Gestational diabetes mellitus (GDM) in second trimester controlled on oral hypoglycemic drug- Primary [facility] encounter [facility]* Diagnosis Antiphospholipid antibody positive- Primary Other and unspecified nonspecific immunological findings Iron deficiency anemia secondary to blood loss (chronic) Vitamin D deficiency Unspecified vitamin D deficiency Primary hypercoagulable state (HCC) Primary hypercoagulable state documented in this encounter [facility]* Diagnosis Gestational diabetes mellitus (GDM) in second trimester controlled on oral hypoglycemic drug- Primary documented in this encounter [facility]* Diagnosis Multigravida of advanced maternal age in second trimester- Primary Antiphospholipid syndrome complicating , antepartum Gestational diabetes mellitus (GDM) in second trimester controlled on oral hypoglycemic drug Insulin controlled gestational diabetes mellitus (GDM) in second trimester AMA (advanced maternal age) multigravida 35+, second trimester Hypothyroidism, unspecified type [facility] Diagnosis 22 weeks gestation of - [...] Hyposmolality and/or hyponatremia documented in this encounter [facility]* Diagnosis Multigravida of advanced maternal [...] hyponatremia [facility] Diagnosis Second trimester ([facility]) state, incidental 23 weeks gestation of ([facility]) Thyroid disease Unspecified disorder of thyroid Gestational diabetes mellitus (GDM), antepartum, gestational diabetes method of control unspecified([facility]) Multigravida of advanced maternal age in second trimester ([facility]) H/O loss Lightheaded Dizziness and giddiness Dizziness [...] ([facility]) state, incidental 25 weeks gestation of ([facility]) Gestational diabetes mellitus (GDM), antepartum, gestational diabetes method of control unspecified([facility]) Anticoagulant long-term use Encounter for long-term (current) use of anticoagulants Antiphospholipid antibody positive Other and unspecified nonspecific immunological findings Antiphospholipid antibody syndrome ([facility]-HCC) Primary hypercoagulable state documented in this encounter [...] of [facility] Diagnosis Third trimester ([facility]) state, incidental 30 weeks gestation of ([facility]) [facility] Narrative No data available for this section [facility] Discharge instructions No data available for this section [facility]ructionsNot on filedocumented in this encounter [facility] [...] be sent through Care Everywhere. * Preeclampsia (Bangladeshi) documented in [facility] encounter[facility] SystemInstructionsNot on file documented in this encounterPro[facility] Health SystemInstructionsNot on file documented in this encounterPro[facility]ica [facility] SystemInstructionsNot on file documented in this encounterPro[facility]ica [facility] SystemInstructionsNot on file documented in this encounterProMedica Health SystemInstructions* Attachments The following attachments cannot be sent through Care Everywhere. * Preeclampsia (Bangladeshi) documented in this encounterPro[facility] SystemInstructionsNot on file documented in this encounterProMedica Health SystemInstructionsNot on file documented in this encounterProMedica Health SystemProgress note No data available for this section [facility] (n[facility]ative) , pt reported hx of nasal polyps and deviated septum but never had surgery done Referred by: Shirlene YEBOAH, Lourdes Baltazar [facility] Reason for visit Narrative* Consultation (Urgent) - Pending ReviewSpecialtyDiagnoses / ProceduresReferred By ContactReferred To ContactRheumatology Diagnoses 22 weeks gestation of Antiphospholipid syndrome complicating , antepartum Mukul Noyloa MD [address], [address] [place] [id number] Phone: tel: fax: Sam Callahan MD MPH [address] [address] Phone: tel: fax: Referral IDStatusReasonStmaggie DateExpiration DateVisits RequestedVisits [id number] Review Specialty Services Required [facility] Summary Purpose Family History No Family [...] a 30 minute post dose observation. Rate/Dose Nplugo7404/05/2022 2:44 PM EAA744.67 mL/ksJdmydhhzp60/07/2022 2:25 PM REO592 mL/hrNew Bag/Syringe/Eazvju6904/05/2022 1:52 PM DDW245 mg166.67 mL/hr Medication OrderMAR ActionAction DateDoseRateSite iron sucrose 300 mg in NaCl 0.9% 250 mL (VENOFER) 300 mg, INTRAVENOUS, at 166.67 mL/hr, Administer over 90 Minutes, ONCE, 1 dose, On Christie 04/20/22 at 1400, Please conduct a 30 minute post dose observation. New Bag/Syringe/Anijil0604/20/2022 2:01 PM KHU238 mg166.67 mL/hr Additional Source Comments INFORMATION SOURCE (unrecogn ized section and content) DATE CREATED AUTHOR 10/22/2017 [facility] DATE CREATED AUTHOR AUTHOR'S ORGANIZ ATION 11/14/2017 [employer] DATE CREATED AUTHOR AUTHOR'S ORGANIZ ATION 06/18/2018 [facility] DATE CREATED AUTHOR AUTHOR'S ORGANIZ ATION 12/30/2021 [facility] DATE CREATED AUTHOR AUTHOR'S ORGANIZ ATION 06/09/2022 [facility] DATE CREATED AUTHOR AUTHOR'S ORGANIZ ATION 09/29/2023 [facility] DATE CREATED AUTHOR AUTHOR'S ORGANIZ ATION 12/03/2023 [facility] DATE CREATED AUTHOR AUTHOR'S ORGANIZ ATION 12/09/2023 [facility] DATE CREATED AUTHOR AUTHOR'S ORGANIZ ATION 12/10/2023 [facility] DATE CREATED AUTHOR AUTHOR'S ORGANIZ ATION 01/27/2024 [facility] DATE CREATED AUTHOR AUTHOR'S ORGANIZ ATION 02/24/2024 [facility] DATE CREATED AUTHOR AUTHOR'S ORGANIZ ATION 02/26/2024 [facility] DATE CREATED AUTHOR AUTHOR'S ORGANIZ ATION 02/28/2024 [facility] DATE CREATED AUTHOR AUTHOR'S ORGANIZ ATION 03/02/2024 [facility] DATE CREATED AUTHOR AUTHOR'S ORGANIZ ATION 03/03/2024 [facility] DATE CREATED AUTHOR AUTHOR'S ORGANIZ ATION 05/15/2024 [facility] DATE CREATED AUTHOR AUTHOR'S ORGANIZ ATION 05/17/2024 [facility] DATE CREATED AUTHOR AUTHOR'S ORGANIZ ATION 05/18/2024 [facility] DATE CREATED AUTHOR AUTHOR'S ORGANIZ ATION 05/19/2024 [facility] DATE CREATED AUTHOR AUTHOR'S ORGANIZ ATION 06/11/2024 [facility] DATE CREATED AUTHOR AUTHOR'S ORGANIZ ATION 06/17/2024 [facility] DATE CREATED AUTHOR AUTHOR'S ORGANIZ ATION 07/09/2024 [facility] DATE CREATED AUTHOR AUTHOR'S ORGANIZ ATION 07/12/2024 [facility] DATE CREATED AUTHOR AUTHOR'S ORGANIZ ATION 07/15/2024 [facility] DATE CREATED AUTHOR AUTHOR'S ORGANIZ ATION 08/24/2024 [facility] DATE CREATED AUTHOR AUTHOR'S ORGANIZ ATION 08/26/2024 [facility] DATE CREATED AUTHOR AUTHOR'S ORGANIZ ATION 09/01/2024 [facility] DATE CREATED AUTHOR AUTHOR'S ORGANIZ ATION 09/08/2024 [facility] DATE CREATED AUTHOR AUTHOR'S ORGANIZ ATION 09/11/2024 [facility] DATE CREATED AUTHOR AUTHOR'S ORGANIZ ATION 12/09/2024 [facility] DATE CREATED AUTHOR AUTHOR'S ORGANIZ ATION 01/18/2025 [facility] DATE CREATED AUTHOR AUTHOR'S ORGANIZ ATION 02/07/2025 [facility] DATE CREATED AUTHOR AUTHOR'S ORGANIZ ATION 02/07/2025 [facility] DATE CREATED AUTHOR AUTHOR'S ORGANIZ ATION 02/13/2025 [facility] DATE CREATED AUTHOR AUTHOR'S ORGANIZ ATION 02/17/2025 [facility] DATE CREATED AUTHOR AUTHOR'S ORGANIZ ATION 02/24/2025 [facility] EPIC Source Comments (unrecognize d section and content) In the event this informatio n is protected by the Federal Confidentiality of Alcohol and Drug Abuse Patient Records regulations: The Federal rules restrict any use of the information to criminally investigate or prosecute any alcohol or drug abuse patient.[facility] CenterIn the event this information is protected by the Federal Confidentiality of Alcohol and Drug Abuse Patient Records regulations: The Federal rules restrict any use of the information to criminally investigate or prosecute any alcohol or drug abuse patient.[facility] CenterIn the event this information is protected by the Federal Confidentiality of Alcohol and Drug Abuse Patient Records regulations: The Federal rules restrict any use of the information to criminally investigate or prosecute any alcohol or drug abuse patient.[facility] CenterIn the event this information is protected by the Federal Confidentiality of Alcohol and Drug Abuse Patient Records regulations: The Federal rules restrict any use of the information to criminally investigate or prosecute any alcohol or drug abuse patient.[facility] CenterIn the event this information is protected by the Federal Confidentiality of Alcohol and Drug Abuse Patient Records regulations: The Federal rules restrict any use of the information to criminally investigate or prosecute any alcohol or drug abuse patient.[facility] CenterIn the event this information is protected by the Federal Confidentiality of Alcohol and Drug Abuse Patient Records regulations: The Federal rules restrict any use of the information to criminally investigate or prosecute any alcohol or drug abuse patient.[facility] CenterIn the event this information is protected by the Federal Confidentiality of Alcohol and Drug Abuse Patient Records regulations: The Federal rules restrict any use of the information to criminally investigate or prosecute any alcohol or drug abuse patient.[facility] CenterIn the event this information is protected by the Federal Confidentiality of Alcohol and Drug Abuse Patient Records regulations: The Federal rules restrict any use of the information to criminally investigate or prosecute any alcohol or drug abuse patient.[facility] CenterIn the event this information is protected by the Federal Confidentiality of Alcohol and Drug Abuse Patient Records regulations: The Federal rules restrict any use of the information to criminally investigate or prosecute any alcohol or drug abuse patient.[facility] CenterIn the event this information is protected by the Federal Confidentiality of Alcohol and Drug Abuse Patient Records regulations: The Federal rules restrict any use of the information to criminally investigate or prosecute any alcohol or drug abuse patient.[facility] CenterIn the event this information is protected by the Federal Confidentiality of Alcohol and Drug Abuse Patient Records regulations: The Federal rules restrict any use of the information to criminally investigate or prosecute any alcohol or drug abuse patient.[facility] CenterIn the event this information is protected by the Federal Confidentiality of Alcohol and Drug Abuse Patient Records regulations: The Federal rules restrict any use of the information to criminally investigate or prosecute any alcohol or drug abuse patient.[facility] CenterIn the event this information is protected by the Federal Confidentiality of Alcohol and Drug Abuse Patient Records regulations: The Federal rules restrict any use of the information to criminally investigate or prosecute any alcohol or drug abuse patient.[facility] CenterIn the event this information is protected by the Federal Confidentiality of Alcohol and Drug Abuse Patient Records regulations: The Federal rules restrict any use of the information to criminally investigate or prosecute any alcohol or drug abuse patient.[facility] CenterIn the event this information is protected by the Federal Confidentiality of Alcohol and Drug Abuse Patient Records regulations: The Federal rules restrict any use of the information to criminally investigate or prosecute any alcohol or drug abuse patient.[facility] CenterIn the event this information is protected by the Federal Confidentiality of Alcohol and Drug Abuse Patient Records regulations: The Federal rules restrict any use of the information to criminally investigate or prosecute any alcohol or drug abuse patient.[facility] CenterIn the event this information is protected by the Federal Confidentiality of Alcohol and Drug Abuse Patient Records regulations: The Federal rules restrict any use of the information to criminally investigate or prosecute any alcohol or drug abuse patient.[facility] CenterIn the event this information is protected by the Federal Confidentiality of Alcohol and Drug Abuse Patient Records regulations: The Federal rules restrict any use of the information to criminally investigate or prosecute any alcohol or drug abuse patient.[facility] CenterIn the event this information is protected by the Federal Confidentiality of Alcohol and Drug Abuse Patient Records regulations: The Federal rules restrict any use of the information to criminally investigate or prosecute any alcohol or drug abuse patient.[facility] CenterIn the event this information is protected by the Federal Confidentiality of Alcohol and Drug Abuse Patient Records regulations: The Federal rules restrict any use of the information to criminally investigate or prosecute any alcohol or drug abuse patient.[facility] CenterIn the event this information is protected by the Federal Confidentiality of Alcohol and Drug Abuse Patient Records regulations: The Federal rules restrict any use of the information to criminally investigate or prosecute any alcohol or drug abuse patient.[facility] CenterIn the event this information is protected by the Federal Confidentiality of Alcohol and Drug Abuse Patient Records regulations: The Federal rules restrict any use of the information to criminally investigate or prosecute any alcohol or drug abuse patient.[facility] CenterIn the event this information is protected by the Federal Confidentiality of Alcohol and Drug Abuse Patient Records regulations: The Federal rules restrict any use of the information to criminally investigate or prosecute any alcohol or drug abuse patient.[facility] CenterIn the event this information is protected by the Federal Confidentiality of Alcohol and Drug Abuse Patient Records regulations: The Federal rules restrict any use of the information to criminally investigate or prosecute any alcohol or drug abuse patient.[facility] CenterIn the event this information is protected by the Federal Confidentiality of Alcohol and Drug Abuse Patient Records regulations: The Federal rules restrict any use of the information to criminally investigate or prosecute any alcohol or drug abuse patient.[facility] CenterIn the event this information is protected by the Federal Confidentiality of Alcohol and Drug Abuse Patient Records regulations: The Federal rules restrict any use of the information to criminally investigate or prosecute any alcohol or drug abuse patient.[facility] CenterIn the event this information is protected by the Federal Confidentiality of Alcohol and Drug Abuse Patient Records regulations: The Federal rules restrict any use of the information to criminally investigate or prosecute any alcohol or drug abuse patient.[facility] CenterIn the event this information is protected by the Federal Confidentiality of Alcohol and Drug Abuse Patient Records regulations: The Federal rules restrict any use of the information to criminally investigate or prosecute any alcohol or drug abuse patient.[facility] CenterIn the event this information is protected by the Federal Confidentiality of Alcohol and Drug Abuse Patient Records regulations: The Federal rules restrict any use of the information to criminally investigate or prosecute any alcohol or drug abuse patient.[facility] CenterIn the event this information is protected by the Federal Confidentiality of Alcohol and Drug Abuse Patient Records regulations: The Federal rules restrict any use of the information to criminally investigate or prosecute any alcohol or drug abuse patient.[facility] CenterIn the event this information is protected by the Federal Confidentiality of Alcohol and Drug Abuse Patient Records regulations: The Federal rules restrict any use of the information to criminally investigate or prosecute any alcohol or drug abuse patient.[facility] CenterIn the event this information is protected by the Federal Confidentiality of Alcohol and Drug Abuse Patient Records regulations: The Federal rules restrict any use of the information to criminally investigate or prosecute any alcohol or drug abuse patient.[facility] CenterIn the event this information is protected by the Federal Confidentiality of Alcohol and Drug Abuse Patient Records regulations: The Federal rules restrict any use of the information to criminally investigate or prosecute any alcohol or drug abuse patient.[facility] CenterIn the event this information is protected by the Federal Confidentiality of Alcohol and Drug Abuse Patient Records regulations: The Federal rules restrict any use of the information to criminally investigate or prosecute any alcohol or drug abuse patient.[facility] CenterIn the event this information is protected by the Federal Confidentiality of Alcohol and Drug Abuse Patient Records regulations: The Federal rules restrict any use of the information to criminally investigate or prosecute any alcohol or drug abuse patient.[facility] CenterIn the event this information is protected by the Federal Confidentiality of Alcohol and Drug Abuse Patient Records regulations: The Federal rules restrict any use of the information to criminally investigate or prosecute any alcohol or drug abuse patient.[facility] CenterIn the event this information is protected by the Federal Confidentiality of Alcohol and Drug Abuse Patient Records regulations: The Federal rules restrict any use of the information to criminally investigate or prosecute any alcohol or drug abuse patient.[facility] CenterIn the event this information is protected by the Federal Confidentiality of Alcohol and Drug Abuse Patient Records regulations: The Federal rules restrict any use of the information to criminally investigate or prosecute any alcohol or drug abuse patient.[facility] CenterIn the event this information is protected by the Federal Confidentiality of Alcohol and Drug Abuse Patient Records regulations: The Federal rules restrict any use of the information to criminally investigate or prosecute any alcohol or drug abuse patient.[facility] CenterIn the event this information is protected by the Federal Confidentiality of Alcohol and Drug Abuse Patient Records regulations: The Federal rules restrict any use of the information to criminally investigate or prosecute any alcohol or drug abuse patient.[facility] CenterIn the event this information is protected by the Federal Confidentiality of Alcohol and Drug Abuse Patient Records regulations: The Federal rules restrict any use of the information to criminally investigate or prosecute any alcohol or drug abuse patient.[facility] CenterIn the event this information is protected by the Federal Confidentiality of Alcohol and Drug Abuse Patient Records regulations: The Federal rules restrict any use of the information to criminally investigate or prosecute any alcohol or drug abuse patient.[facility] CenterIn the event this information is protected by the Federal Confidentiality of Alcohol and Drug Abuse Patient Records regulations: The Federal rules restrict any use of the information to criminally investigate or prosecute any alcohol or drug abuse patient.[facility] CenterIn the event this information is protected by the Federal Confidentiality of Alcohol and Drug Abuse Patient Records regulations: The Federal rules restrict any use of the information to criminally investigate or prosecute any alcohol or drug abuse patient.[facility] CenterIn the event this information is protected by the Federal Confidentiality of Alcohol and Drug Abuse Patient Records regulations: The Federal rules restrict any use of the information to criminally investigate or prosecute any alcohol or drug abuse patient.[facility] CenterIn the event this information is protected by the Federal Confidentiality of Alcohol and Drug Abuse Patient Records regulations: The Federal rules restrict any use of the information to criminally investigate or prosecute any alcohol or drug abuse patient.[facility] CenterIn the event this information is protected by the Federal Confidentiality of Alcohol and Drug Abuse Patient Records regulations: The Federal rules restrict any use of the information to criminally investigate or prosecute any alcohol or drug abuse patient.[facility] CenterIn the event this information is protected by the Federal Confidentiality of Alcohol and Drug Abuse Patient Records regulations: The Federal rules restrict any use of the information to criminally investigate or prosecute any alcohol or drug abuse patient.[facility] CenterIn the event this information is protected by the Federal Confidentiality of Alcohol and Drug Abuse Patient Records regulations: The Federal rules restrict any use of the information to criminally investigate or prosecute any alcohol or drug abuse patient.[facility] CenterIn the event this information is protected by the Federal Confidentiality of Alcohol and Drug Abuse Patient Records regulations: The Federal rules restrict any use of the information to criminally investigate or prosecute any alcohol or drug abuse patient.[facility] CenterIn the event this information is protected by the Federal Confidentiality of Alcohol and Drug Abuse Patient Records regulations: The Federal rules restrict any use of the information to criminally investigate or prosecute any alcohol or drug abuse patient.[facility] CenterIn the event this information is protected by the Federal Confidentiality of Alcohol and Drug Abuse Patient Records regulations: The Federal rules restrict any use of the information to criminally investigate or prosecute any alcohol or drug abuse patient.[facility] CenterIn the event this information is protected by the Federal Confidentiality of Alcohol and Drug Abuse Patient Records regulations: The Federal rules restrict any use of the information to criminally investigate or prosecute any alcohol or drug abuse patient.[facility] CenterIn the event this information is protected by the Federal Confidentiality of Alcohol and Drug Abuse Patient Records regulations: The Federal rules restrict any use of the information to criminally investigate or prosecute any alcohol or drug abuse patient.[facility] CenterIn the event this information is protected by the Federal Confidentiality of Alcohol and Drug Abuse Patient Records regulations: The Federal rules restrict any use of the information to criminally investigate or prosecute any alcohol or drug abuse patient.[facility] Care Teams (unrecognized sec tion and content) Team MemberRelationshipSpecialtyStart DateEnd Date Humaira Gaviria MD [address] [place] [address] PCP - GeneralInternal Medicine07/05/18 Jonny Wilcox MD [address] [place] [address] Primary Staff PhysicianCardiology07/16/18Team MemberRelationshipSpecialtyStart DateEnd Date Humiara Gaviria MD [address] [place] [address] PCP - GeneralInternal Medicine07/05/18 Jonny Wilcox MD [address] [place] [address] Primary Staff PhysicianCardiology07/16/18Team MemberRelationshipSpecialtyStart DateEnd Date Humaira Gaviria MD [address] [place] [address] PCP - GeneralInternal Medicine07/05/18 Jonny Wilcox MD [address] [place] [address] Primary Staff PhysicianCardiology07/16/18Team MemberRelationshipSpecialtyStart DateEnd [facility] Humaira Gaviria MD [address] [place] [address] PCP - GeneralInternal Medicine07/05/18 Jonny Wilcox MD [address] [place] [address] Primary Staff PhysicianCardiology07/16/18Team MemberRelationshipSpecialtyStart DateEnd Date Humaira Gaviria MD [address] [place] [facility] [place] [address] PCP - GeneralInternal Medicine07/05/18 Jonny Wilcox MD [address] [place] [address] Primary Staff PhysicianCardiology07/16/18 [place] [address] [place] [address] PhysicianHematology/Oncology09/14/21 Davida Restrepo, RN [address] [place] [address] Specialty Care CoordinatorHematology/Oncology09/14/21Te MemberRelationship SpecialtyStart DateEnd Date Penelope Casas [address] [place], [place] [address], [place] [address] PCP - GeneralFamily Medicine10/04/20Team MemberRelationshipSpecialtyStart DateEnd Date Humaira Gaviria MD [address] [place] [facility] [place] [address] PCP - GeneralInternal Medicine07/05/18 Jonny Wilcox MD [address] [place] [address] Primary Staff PhysicianCardiology07/16/18 [place] [address] [place] [address] PhysicianHematology/Oncology09/14/21 Davida Restrepo, RN [address] [place] [address] Specialty Care CoordinatorHematology/Oncology09/14/21Team MemberRelationship SpecialtyStart DateEnd Date Penelope Casas, DO [address] [place] [address] PCP - GeneralFamily Uhdprleq78/3/22 Jonny Wilcox MD [address] [place] [address] Primary Staff PhysicianCardiology07/16/18 [place] [address] [place] [address] PhysicianHematology/Oncology09/14/21 Davida Restrepo, RN [address] [place] [address] Specialty Care CoordinatorHematology/Oncology09/14/21Te MemberRelationship SpecialtyStart DateEnd Date Penelope Casas, DO [address] [place] [address] PCP - GeneralFamily Tejkbott90/3/22 Jonny Wilcox MD [address] [place] [address] Primary Staff PhysicianCardiology07/16/18 [place] [address] [place] [address] PhysicianHematology/Oncology09/14/21 Davida Restrepo, RN [address] [place] [address] Specialty Care CoordinatorHematology/Oncology09/14/21Te MemberRelationship SpecialtyStart DateEnd Date Penelope Casas, [address] [place] [address] PCP - GeneralFamily Dqniplil70/3/22 Jonny Wilcox MD [address] [place] [address] Primary Staff PhysicianCardiology07/16/18 [place] [address] [place] [address] PhysicianHematology/Oncology09/14/21 Davida Restrepo, RN [address] [place] [address] Specialty Care CoordinatorHematology/Oncology09/14/21Te MemberRelationship SpecialtyStart DateEnd Date Penelope Casas, DO [address] [facility] [place] [place] [address] PCP - Generalmi Ptjrlvnm39/3/22 Jonny Wilcox MD [address] [place] [address] Primary Staff PhysicianCardiology07/16/18 [place] [address] [place] [address] PhysicianHematology/Oncology09/14/21 Davida Restrepo, RN [address] [place] [address] Specialty Care CoordinatorHematology/Oncology09/14/21Te MemberRelationship SpecialtyStart DateEnd Date Penelope Casas, DO [address] [place] [address] PCP - GeneralFamily Gxddsdak69/3/22 Jonny Wilcox MD [address] [place] [address] Primary Staff PhysicianCardiology07/16/18 [place] [address] [place] [address] PhysicianHematology/Oncology09/14/21 Davida Restrepo, RN [address] [place] [address] Specialty Care CoordinatorHematology/Oncology09/14/21Team MemberRelationship SpecialtyStart DateEnd Date Penelope Casas, [address] [place] [address] PCP - [facility] Lbhxhuwv44/3/22 Jonny Wilcox MD [address] [place] [address] Primary Staff PhysicianCardiology07/16/18 [place] [address] [place] [address] PhysicianHematology/Oncology09/14/21 Davida Restrepo RN [address] [place] [address] Specialty Care CoordinatorHematology/Oncology09/14/21Te MemberRelationship SpecialtyStart DateEnd Date Penelope Casas, [address] [place] [address] PCP - [facility] Atrxwckh54/3/22 Jonny Wilcox MD [address] [place] [address] Primary Staff PhysicianCardiology07/16/18 [place] [address] [place] [address] PhysicianHematology/Oncology09/14/21 Davida Restrepo, RN [address] [place] [address] Specialty Care CoordinatorHematology/Oncology09/14/21Te MemberRelationship SpecialtyStart DateEnd Date Penelope Casas DO [address] [facility] [place] [address] PCP - GeneralFamily Ylfvxjhi73/3/22 oJnny Wilcox MD [address] [place] [address] Primary Staff PhysicianCardiology07/16/18 [place] [address] [place] [address] PhysicianHematology/Oncology09/14/21 Davida Restrepo, RN [address] [place] [address] Specialty Care CoordinatorHematology/Oncology09/14/21Team MemberRelationship SpecialtyStart DateEnd Date Penelope Casas DO [address] [facility] [place] [address] PCP - GeneralFamily Imoulonh76/3/22 Jonny Wilcox MD [address] [place] [address] Primary Staff PhysicianCardiology07/16/18 [place] [address] [place] [address] PhysicianHematology/Oncology09/14/21 Davida Restrepo, RN [address] [place] [address] Specialty Care CoordinatorHematology/Oncology09/14/21Team MemberRelationship SpecialtyStart DateEnd Date Penelope Casas DO [address] [place] [address] PCP - GeneralFamily Shkqkubv21/3/22 Jonny Wilcox MD [address] [facility] [place] [address] Primary Staff PhysicianCardiology07/16/18 [place] [address] [place] [address] PhysicianHematology/Oncology09/14/21 Davida Restrepo RN [address] [facility] [place] [address] Specialty Care CoordinatorHematology/Oncology09/14/21Team MemberRelationship SpecialtyStart DateEnd Date Penelope Casas DO [address] [place] [address] PCP - GeneralFamily Rikfhhvr46/3/22 Jonny Wilcox MD [address] [place] [address] Primary Staff PhysicianCardiology07/16/18 [place] [address] [place] [address] PhysicianHematology/Oncology09/14/21 Davida Restrepo RN [address] [facility] [place] [address] Specialty Care CoordinatorHematology/Oncology09/14/21Team MemberRelationship SpecialtyStart DateEnd Date Penelope Casas DO [address] [place] [address] PCP - GeneralFamily Dvltmqjh19/3/22 Jonny Wilcox MD [address] [place] [address] Primary Staff PhysicianCardiology07/16/18 [place] [address] [place] [address] PhysicianHematology/Oncology09/14/21 Davida Restrepo, RN [address] [place] [address] Specialty Care CoordinatorHematology/Oncology09/14/21Team MemberRelationship SpecialtyStart DateEnd Date Penelope Casas DO [address] [address] PCP - [facility] Bewqmlml89/3/22 Jonny Wilcox MD [address] [place] [address] Primary Staff PhysicianCardiology07/16/18 [place] [address] [place] [address] PhysicianHematology/Oncology09/14/21 Davida Restrepo, RN [address] [place] [address] Specialty Care CoordinatorHematology/Oncology09/14/21Te MemberRelationship SpecialtyStart DateEnd Date Penelope Casas DO [address] [address] PCP - GeneralFamily Qwkwshbz93/3/22 Jonny Wilcox MD [address] [place] [address] Primary Staff PhysicianCardiology07/16/18 [place] [address] [place] [address] PhysicianHematology/Oncology09/14/21 aDvida Restrepo RN [address] [facility] [place] [address] Specialty Care CoordinatorHematology/Oncology09/14/21Team MemberRelationship SpecialtyStart DateEnd Date Penelope Casas DO [address] [place] [address] PCP - GeneralFamily Sbaatfvi45/3/22 Jonny Wilcox MD [address] [place] [address] Primary Staff PhysicianCardiology07/16/18 [place] [address] [place] [address] PhysicianHematology/Oncology09/14/21 Davida Restrepo RN [address] [place] [address] Specialty Care CoordinatorHematology/Oncology09/14/21Team MemberRelationship SpecialtyStart DateEnd Date Penelope Casas DO [address] [place] [address] PCP - GeneralFamily Vtngogqy41/3/22 Jonny Wilcox MD [address] [place] [address] Primary Staff PhysicianCardiology07/16/18 [place] [address] [place] [address] PhysicianHematology/Oncology09/14/21 Davida Restrepo RN [address] [place], [place] [address] Specialty Care CoordinatorHematology/Oncology09/14/21Team MemberRelationship SpecialtyStart DateEnd Date Penelope Casas DO [address] [place] [address] PCP - Generalmily Univwucy08/3/22 Jonny Wilcox MD [address] [place] [address] Primary Staff PhysicianCardiology07/16/18 [place] [address] [place] [address] PhysicianHematology/Oncology09/14/21 Davida Restrepo RN [address] [place] [address] Specialty Care CoordinatorHematology/Oncology09/14/21Te MemberRelationship SpecialtyStart DateEnd Date Penelope Casas DO [address] [place] [address] PCP - Generalmily Uwavtayu86/3/22 Jonny Wilcox MD [address] [place] [address] Primary Staff PhysicianCardiology07/16/18 [place] [address] [place] [address] PhysicianHematology/Oncology09/14/21 Davida Restrepo RN [address] [place] [address] Specialty Care CoordinatorHematology/Oncology09/14/21Team MemberRelationship SpecialtyStart DateEnd Date Penelope Casas DO [address] [place] [address] PCP - GeneralFamily Zybvocjo02/3/22 Jonny Wilcox MD [address] [place] [address] Primary Staff PhysicianCardiology07/16/18 [place] [address] [place] [address] PhysicianHematology/Oncology09/14/21 Davida Restrepo RN [address] [place] [address] Specialty Care CoordinatorHematology/Oncology09/14/21Te MemberRelationship SpecialtyStart DateEnd Date Penelope Casas DO [address] [facility] [place] [place] [address] PCP - [facility] Bczmmcku21/3/22 Jonny Wilcox MD [address] [place] [address] Primary Staff PhysicianCardiology07/16/18 [place] [address] [place] [address] PhysicianHematology/Oncology09/14/21 Davida Restrepo RN [address] [place] [address] Specialty Care CoordinatorHematology/Oncology09/14/21Team MemberRelationship SpecialtyStart DateEnd Date Penelope Casas DO [address] [place] [address] PCP - GeneralCass County Health Systemly Vzkodrha45/3/22 Jonny Wilcox MD [address] [place] [address] Primary Staff PhysicianCardiology07/16/18 [place] [address] [place] [address] PhysicianHematology/Oncology09/14/21 Davida Restrepo, RN [address] [place] [address] Specialty Care CoordinatorHematology/Oncology09/14/21Team MemberRelationship SpecialtyStart DateEnd Date Penelope Casas DO [address] [address] PCP - Generalmily Gopguxro18/3/22 Jonny Wilcox MD [address] [place] [address] Primary Staff PhysicianCardiology07/16/18 [place] [address] [place] [address] PhysicianHematology/Oncology09/14/21 Davida Restrepo, RN [address] [facility] [place], [place] [id number] Specialty Care CoordinatorHematology/Oncology09/14/21Team MemberRelationship SpecialtyStart DateEnd Date Penelope Casas DO [address] [place] [address] PCP - GeneralFamily Lopfsyka62/3/22 Jonny Wilcox MD [address] [place] [address] Primary Staff PhysicianCardiology07/16/18 [place] [address] [place] [address] PhysicianHematology/Oncology09/14/21 Davida Restrepo, RN [address] [place] [address] Specialty Care CoordinatorHematology/Oncology09/14/21Team MemberRelationship SpecialtyStart DateEnd Date Penelope Casas DO [address] [place] [address] PCP - GeneralFamily Nxdzghzt67/3/22 Jonny Wilcox MD [address] [place] [address] Primary Staff PhysicianCardiology07/16/18 [place] [address] [place] [address] PhysicianHematology/Oncology09/14/21 Davida Restrepo RN [address] [place] [address] Specialty Care CoordinatorHematology/Oncology09/14/21Team MemberRelationship SpecialtyStart DateEnd Date Penelope Casas MD [address] [place] [address] PCP - GeneralFamily Medicine11/07/23Team MemberRelationshipSpecialtyStart DateEnd Date Penelope Casas MD [address] [facility] [place] [address] PCP - [facility] Medicine11/07/23Team MemberRelationshipSpecialtyStart DateEnd Date Penelope Casas MD [address] [facility] [place] [address] PCP - GeneralCass County [facility] Systemly Medicine11/07/23Team MemberRelationshipSpecialtyStart DateEnd Date Penelope Casas MD [address] [facility] [place] [address] PCP - [facility] Medicine11/07/23Team MemberRelationshipSpecialtyStart DateEnd Date Penelope Casas MD [address] [place] [address] PCP - [facility] Medicine11/07/23 Team Status: Inactive Member Role Status Dates Wilton Herrmann DO Attending Provider Active Start : May 10, 2024 End: May 10, 2024Team MemberRelationshipSpecialtyStart DateEnd Date Penelope Casas DO [address] [place] [address] PCP - Generalmily Mgybegsl46/3/22 Jonny Wilcox MD [address] [place], [place] [address] Primary Staff PhysicianCardiology07/16/18 [place] [address] [address] [place], [place] [address] PhysicianHematology/Oncology09/14/21 Davida Restrepo, RN [address] [place] [address] Specialty Care CoordinatorHematology/Oncology09/14/21Team MemberRelationship SpecialtyStart DateEnd Date Penelope Csaas MD [address] [place] [address] PCP - GeneralFamily Medicine11/07/23Team MemberRelationshipSpecialtyStart DateEnd Date Penelope Casas MD [address] [place] [address] PCP - GeneralFamily Medicine11/07/23Team MemberRelationshipSpecialtyStart DateEnd Date Penelope Casas MD [address] [place] [address] PCP - GeneralFamily Medicine11/07/23Team MemberRelationshipSpecialtyStart DateEnd Date Penelope Casas MD [address] [place] [address] PCP - GeneralFamily Medicine11/07/23Team MemberRelationshipSpecialtyStart DateEnd Date Penelope Casas DO [address] [facility] [place] [address] PCP - GeneralFamily Nfjwtyyu00/3/22 Jonny Wilcox MD [address] [place] [address] Primary Staff PhysicianCardiology07/16/18 [place] [address] [place] [address] PhysicianHematology/Oncology09/14/21 Davida Restrepo, RN [address] [place] [address] Specialty Care CoordinatorHematology/Oncology09/14/21Team MemberRelationship SpecialtyStart DateEnd Date Penelope Casas MD [address] [place] [address] PCP - GeneralFamily Medicine11/07/23Team MemberRelationshipSpecialtyStart DateEnd Date Penelope Casas MD [address] [place] [address] PCP - GeneralFamily Medicine11/07/23Team MemberRelationshipSpecialtyStart DateEnd Date Penelope Casas DO PCP - GeneralFamily Medicine07/07/19Team MemberRelationshipSpecialtyStart DateEnd Date Penelope Casas DO PCP - GeneralFamily Medicine07/07/19Team MemberRelationshipSpecialtyStart DateEnd Date Penelope Casas MD [address] [place] [address] PCP - GeneralFamily Medicine11/07/23Team MemberRelationshipSpecialtyStart DateEnd Date Penelope Casas DO PCP - GeneralFamily Medicine07/07/19Team MemberRelationshipSpecialtyStart DateEnd Date Penelope Casas DO PCP - Generalmily Medicine07/07/19Team MemberRelationshipSpecialtyStart DateEnd Date Penelope Casas DO [address] [place] [place] [address] PCP - Generalmily Hhumpwsk69/3/22 Jonny Wilcox MD [address] [place] [address] Primary Staff PhysicianCardiology07/16/18 [place] [address] [place] [address] PhysicianHematology/Oncology09/14/21 Davida Restrepo, RN [address] [place] [address] Specialty Care CoordinatorHematology/Oncology09/14/21Team MemberRelationship SpecialtyStart DateEnd Date Penelope Casas DO PCP - Generalmily Medicine07/07/19Team MemberRelationshipSpecialtyStart DateEnd Date Penelope Casas MD [address] [place] [address] PCP - Generalmily Medicine11/07/23Team MemberRelationshipSpecialtyStart DateEnd Date Penelope Casas MD [address] [place] [address] PCP - Generalmily Medicine11/07/23Team MemberRelationshipSpecialtyStart DateEnd Date Penelope Casas DO PCP - Generalmily Medicine07/07/19Team MemberRelationshipSpecialtyStart DateEnd Date Penelope Casas DO PCP - Generalmily Medicine07/07/19Team MemberRelationshipSpecialtyStart DateEnd Date Penelope Casas MD [address] [place] [address] [facility] - [facility]11/07/23Team MemberRelationshipSpecialtyStart DateEnd Date Penelope Casas MD [address] [facility] [place] [address] PCP - [facility] Medicine11/07/23Team MemberRelationshipSpecialtyStart DateEnd Date Penelope Casas DO PCP - [facility]07/07/19Team MemberRelationshipSpecialtyStart DateEnd Date Penelope Casas DO [address] [place] [address] PCP - Generalmily Aexwyjkl50/3/22 Jonny Wilcox MD [address] [place] [address] Primary Staff PhysicianCardiology07/16/18 [place] [address] [place] [address] PhysicianHematology/Oncology09/14/21 Davida Restrepo, RN [address] [place] [address] Specialty Care CoordinatorHematology/Oncology09/14/21Team MemberRelationship SpecialtyStart DateEnd Date Penelope Casas DO PCP - GeneralFamily Medicine07/07/19Team MemberRelationshipSpecialtyStart DateEnd Date Penelope Casas DO PCP - GeneralFamily Medicine07/07/19Team MemberRelationshipSpecialtyStart DateEnd Date Penelope Casas DO PCP - GeneralFamily Medicine07/07/19Team MemberRelationshipSpecialtyStart DateEnd Date Penelope Casas DO PCP - GeneralFamily Medicine07/07/19Team MemberRelationshipSpecialtyStart DateEnd Date Penelope Casas DO PCP - GeneralFamily Medicine07/07/19Team MemberRelationshipSpecialtyStart DateEnd Date Penelope Casas MD [facility] [address] [facility] [place] [address] PCP - GeneralFamily Medicine11/07/23Team MemberRelationshipSpecialtyStart DateEnd Date Penelope Casas DO PCP - GeneralFamily Medicine07/07/19Team MemberRelationshipSpecialtyStart DateEnd Date Penelope Casas DO PCP - GeneralCass [facility] Systemly Medicine07/07/19Team MemberRelationshipSpecialtyStart DateEnd Date Penelope Casas DO PCP - Generalmily Medicine07/07/19Team MemberRelationshipSpecialtyStart DateEnd Date Penelope Casas MD [address] [place] [address] PCP - [facility] Medicine11/07/23Team MemberRelationshipSpecialtyStart DateEnd Date Penelope Casas DO PCP - [facility] Medicine07/07/19Team MemberRelationshipSpecialtyStart DateEnd Date Penelope Casas DO PCP - [facility] Medicine07/07/19Team MemberRelationshipSpecialtyStart DateEnd Date Penelope Casas MD [address] [place] [address] PCP - [facility] Medicine11/07/23Team MemberRelationshipSpecialtyStart DateEnd Date Penelope Casas MD [address] [place] [address] PCP - [facility] Medicine11/07/23Team MemberRelationshipSpecialtyStart DateEnd Date Penelope Casas MD [address] [place] [address] PCP - [facility]11/07/23Team MemberRelationshipSpecialtyStart DateEnd Date Penelope Casas MD [address] [place] [address] PCP - [facility] Medicine11/07/23Team MemberRelationshipSpecialtyStart DateEnd Date Penelope Casas MD [address] [place] [address] PCP - [facility] Medicine11/07/23 Reason for Visit (unrecogniz ed section and content) ReasonCommentsFuture AppointmentReasonCommentsPatient QuestionReasonComments Medication QuestionReasonOnset DateCommentsRefill Vysxxox94/13/2022ReasonOnset DateCommentsRefill Qydobft75/02/2022ReasonCommentsHypercoagulable state6 month follow upReasonCommentsPrimary hypercoagulable state8 week follow upReason CommentsResultsReasonCommentsAppointmentPatient QuestionMedication Question OrdersSpecialtyDiagnoses / ProceduresReferred By ContactReferred To Contact Diagnoses Iron deficiency anemia secondary to blood loss (chronic) Iron deficiency anemia of Procedures INJECTION, FERRIC DERISOMALTOSE, 10 MG Kristofer Calix MD [address] [place] [address] [place] [address] [address] [place] [address] Referral IDStatusReasonStart DateExpiration DateVisits RequestedVisits [id number]/[id number] Request SpecialtyDiagnoses / ProceduresReferred By ContactReferred To Contact Diagnoses Iron deficiency anemia secondary to blood loss (chronic) Iron deficiency anemia of Procedures IRON SUCROSE INJECTION PER 1 MG Kristofer Calix MD [address] [place] [address] [place] [address] [address] [employer] [address] [place] [id number] Referral IDStatusReasonStart DateExpiration DateVisits RequestedVisits [id number]/28/20221/[id number] DateCommentsRefill Tuqkvwi1207/03/2022ReasonCommentsAnemiaFollow upReasonCommentsOrdersReason CommentsEstablished PatientReasonCommentsAppointmentReasonCommentsLab Orders ReasonCommentsPrimary hypercoagulable state (HCC)Follow upReasonComments Appointment RescheduledSpecialtyDiagnoses / ProceduresReferred By Contact Referred To Contact Diagnoses Iron deficiency anemia of Iron deficiency anemia secondary to blood loss (chronic) Procedures IRON SUCROSE INJECTION PER 1 MG Kristofer Calix MD [address] [place] [address] [address] [place] [id number] [employer] [address] [place] [phone] Referral IDStatusReasonStart DateExpiration DateVisits RequestedVisits [id number]/8/20241/[id number] DateCommentsRefill Haryfdv7111/29/2023easonCommentsAmenorrheaReasonOnset DateCommentsRefill Request 4ReasonCommentsRoutine VisitReasonCommentsPatient UpdateReason CommentsAnemiafollowupReasonCommentsfollow up miscarriageReasonCommentsVaginal BleedingDizzinessReasonCommentsIrregular CyclesReasonOnset DateCommentsRefill Nnodfds2207/25/2024ReasonOnset DateCommentsRefill Pnzrzks3610/20/2024ReasonOnset DateCommentsRefill Ybagosk9210/29/2024ReasonCommentsGestational DiabetesSpecialty Diagnoses / ProceduresReferred By ContactReferred To ContactMaternal and Medicine Diagnoses Gestational diabetes mellitus (GDM), antepartum, gestational diabetes method of control unspecified Wilton Herrmann, DO [address] [place] [address] Phone: tel: fax: Maternal- Medicine at [facility] [address] [place] [address] Phone: tel: fax: Referral IDStatusReasonStart DateExpiration DateVisits RequestedVisits [id number] Review Specialty Services Required [id number]iillj stateAnemia8 week follow up ReasonCommentsMFM consultReasonCommentsRoutine VisitReasonComments [...] BE BASED ON THE PRIMARY CLINICAL RECORDS. [facility]. provides no warranty or guarantee of the accuracy or completeness of information in this document.
--- OUTSIDE RECORDS SUMMARY | 2025-02-26 19:16 | XMS_ITS | Clinical Summary ---
Author Organization [employer] tem Address [id number] [address] [place] [address] Care Team Providers Care Accounting Associate Name Role Phone Evans Casas DO Primary Care Provider [phone] Allergies Active AllergyReactionsCriticalityNoted DateCommentsCiprofloxacinDizziness 06/19/2019LactalbuminOther (See Comments)Low05/25/2017 Other reaction(s): GI Upset Crampy and gassy LactoseGI Wkrhzpelngh66/14/2018 Diarrhea Milk Containing Products (Dairy)Other (See Comments)Low05/25/2017 [...] in second trimester controlled on oral hypoglycemic drug12/17/20243755Lrlbbf34/08/2025MA (advanced maternal age) multigravida 35+11/04/2024ntiphospholipid syndrome 11/04/20243975Fsnzljuzqzv07/08/9709Ldwemz36/08/2025ntiphospholipid syndrome complicating , xjnwodywyw80/09/2020Estimated Date of Delivery HxxcbsqvRhz69/05/2026ased on last menstrual period of 07/28/2024 Resolved Problems ProblemNoted DateDiagnosed DateResolved DateCerebral infarction, unspecified Migraine without aura and without status migrainosus, not zcjfxupbbcf33 Encounters DateTypeDepartmentCare TfopKixlhauxsrv15/23/2025Orders Only [facility], A Department of [address] [address] Ref Prov, Not In System 02/18/2025Or[facility] Only [facility] Department of [address] [address] Ref Prov, Not In System 02/16/2025 1:45 PM EDTOffice Visit [facility] Department of [place] [id number] [address] Sam Callahan MD MPH Antiphospholipid syndrome (Primary Dx); Antiphospholipid syndrome complicating , antepartum; History of CVA (cerebrovascular accident); Coordination of complex care; 29 weeks gestation of /20/2958Negver58/14/2025Telephone Maternal- Medicine at [address] [address] Annita Kendall LD 02/06/2025 2:00 PM EDTTelemedicine Maternal- Medicine at [address] [address] Wilfrid Medina MD 27 weeks gestation of (Primary Dx); Multigravida of advanced maternal age in third trimester; Gestational diabetes mellitus (GDM) in second trimester controlled on oral hypoglycemic drug; Antiphospholipid syndrome complicating , antepartum; Antiphospholipid /10/4791Ougnnf69/09/5374Ypfral78/16/2025 10:00 AM EDT Telemedicine Maternal- Medicine at [place] [address] [place] [address] Davida Smith PA-C Gestational diabetes mellitus (GDM) in second trimester controlled on oral hypoglycemic drug (Primary Dx); Antiphospholipid syndrome; Other specified hypothyroidism; Antiphospholipid syndrome complicating , vvxfqmhylr27/16/2025Travel 01/09/2025Telephone Maternal- Medicine at [facility] [address] [place] [address] Wilfrid Medina MD 01/09/2025Orders Only Maternal- Medicine at [facility] [address] [place] [address] Wilfrid Medina MD Antiphospholipid syndrome (Primary Dx)01/07/2025Telephone Maternal- Medicine at [facility] [address] [place] [address] Jacque Pat RN 01/06/2025Telephone Maternal- Medicine at [facility] [address] [place] [address] Margo Khan RN 01/05/2025Orders Only Maternal- Medicine at [facility] [address] [place] [address] Jacque Pat, MARSHA Multigravida of advanced maternal age in second trimester (Primary Dx); Antiphospholipid syndrome complicating , antepartum; Gestational diabetes mellitus (GDM) in second trimester controlled on oral hypoglycemic drug; AMA (advanced maternal age) multigravida 35+, second trimester; Hypothyroidism, unspecified type; History of stroke; History of loss in prior , currently in second trimester; Hypothyroidism affecting in second trimester; Family history of autism; Egkpawnjawlt76/08/2025Documentation Maternal- Medicine at [facility] [address] [facility] [place] [address] Jacque Pat RN 01/01/2025 2:30 PM EDTTelemedicine Maternal Medicine [place] [address] [facility] [address] [place] [address] Wilfrid Medina MD 22 weeks gestation of (Primary Dx); Antiphospholipid syndrome complicating , antepartum; History of stroke; History of loss in prior , currently in second trimester; Gestational diabetes mellitus (GDM) in second trimester controlled on oral hypoglycemic drug; Multigravida of advanced maternal age in second trimester; Hypothyroidism affecting in second trimester; Family history of autism; Fhifyzuookxf76/04/2025Orders Only [facility] [place] [address] [facility] [address] [place] [address] Iraida Warren RN Multigravida of advanced maternal age in second trimester (Primary Dx); Antiphospholipid syndrome complicating , antepartum; Gestational diabetes mellitus (GDM) in second trimester controlled on oral hypoglycemic drug; Insulin controlled gestational diabetes mellitus (GDM) in second trimester; AMA (advanced maternal age) multigravida 35+, second trimester; Hypothyroidism, unspecified type01/01/20255482Zvzhna64/29/2025Orders Only [facility] - Labor [address] [facility] [place] [address] Wilfrid Medina MD Gestational diabetes mellitus (GDM) in second trimester controlled on oral hypoglycemic drug (Primary Dx)12/26/2024Telephone Maternal- Medicine at [facility] [address] [place] [address] Stephanie Quiros LD 12/17/2024 3:30 PM EDTTelemedicine Maternal- Medicine at [facility] [address] [place] [address] Alisa Saba APRN-TOR Gestational diabetes mellitus (GDM) in second trimester controlled on oral hypoglycemic drug (Primary Dx)12/17/20245783Tvgqsz47/15/2025Orders Only Maternal- Medicine at [facility] [address] [place] [address] Star Waggoner MD 12/12/2024Telephone Maternal- Medicine at [facility] [address] [place] [address] Annita Kendall LD 12/12/2024Telephone Maternal- Medicine at [facility] [address] [place] [address] Annita Kendall, PRISCILLA 12/03/2024 2:00 PM EDTTelemedicine Maternal- Medicine at [facility] [address] [place] [address] Alisa Saba APRN-TOR Insulin controlled gestational diabetes mellitus (GDM) in second trimester (Primary Dx)12/03/2024Telephone Maternal- Medicine at [facility] [address] [place] [address] Anni Abreu CMA 12/02/2024Travelfrom Last 3 Months Family History Medical WxaxvysShdlxqdlUzuwOgktdsnjLzffxbhvGauazhX7ELQofqyvNaetpjSpvyua illness Maternal GrandmotherCancerPaternal GrandfatherDiabetesPaternal UkizqdxljpqE1PK CancerPaternal GrandmotherDiabetesPaternal ErdokqwqleiI6AVDkkoigagBapprxN5PB RelationNameStatusCommentsFatherDeceasedMaternal GrandmotherPaternal Grandfather Paternal GrandmotherSister Social History Tobacco UseTypesPacks/DayYears UsedDateSmoking Tobacco: NeverSmokeless Tobacco: Never Tobacco Cessation:Counseling Given: Not Answered Alcohol UseStandard Drinks/WeekCommentsNot Currently0 (1 standard drink = 0.6 oz pure alcohol)ChildcareAnswerDate BbbvotfdYunrtlniiGrvqmdx65/31/2019Employment AnswerDate ZrrrkxvkVgzhfomwkhHtscprd01/31/2019Hunger ScreeningAnswerDate RecordedWithin the past 12 months we worried whether our food would run out before we got money to buy more.Never True01/01/2025Within the past 12 months the food we bought just didn't last and we didn't have money to get more.Never True01/01/2025Purpose - LifeAnswerDate RecordedPurpose and direction in life Dyjdmmv46/11/2021Estimated Date of MtmqwqtrQrbqgyasLoh07/05/2026Based on last menstrual period of 07/28/2024Sex and Gender InformationValueDate Recorded Sex Assigned at BirthNot on fileLegal QpaYeprcj58/31/2019 12:25 PM EDTGender IdentityNot on fileSexual OrientationNot on file Last Filed Vital Signs Vital SignReadingTime TakenCommentsBlood Asxnuphf054/801 1:44 PM EDT Tptbk336102/16/2025 1:44 PM EDTTemperature--Respiratory Gnsw7500 1:44 PM EDTOxygen Saturation--Inhaled Oxygen Concentration--Xlodwk21.8 kg (209 lb) 02/16/2025 1:44 PM ZOEWwcrkk086.6 cm (5' 6 )02/16/2025 1:44 PM EDTBody Mass Index33.7302/16/2025 1:44 PM EDT Plan of Treatment DateTypeDepartmentCare Team (Latest Contact Info)Vanlpjukspl60/11/2025 8:00 AM ESTTelemedicine Maternal- Medicine at [address] [address] Sana Palma MD [address] [place] [address] 03/17/2025 8:30 AM ESTTelemedicine [facility] Department of [address] [address] Sam Callahan MD MPH [address] [address] Health MaintenanceDue DateLast DoneCommentsDepression Bwilwbhij45/24/1998Adult BMI Follow Up Plan10/22/2003DTaP,Tdap and Td Vaccines (2 - Td or Tdap)07/03/2024 07/03/2014Influenza Fmxyaax4912/29/2024Pap Smeardult BMI Nykateaxa53Tobacco Bhchynnjz94 Medical Devices Not on file Procedures Procedure NamePriorityDate/TimeAssociated DiagnosisCommentsEXTERNAL LAB ORDERS / XUMOCEWAjqgtcj53/23/2025 3:15 PM EDTEXTERNAL LAB ORDERS / RESULTSRoutine 02/19/2025 3:13 PM EDTEXTERNAL LAB ORDERS / SWFHBPSNctzfgj11/22/2025 1:[address] [facility] OB FOLLOW-UP, 1 FFWKCGxcafcd32/09/2025 2:10 PM EDT Multigravida of advanced maternal age in second trimester Antiphospholipid syndrome complicating , antepartum Gestational diabetes mellitus (GDM) in second trimester controlled on oral hypoglycemic drug Insulin controlled gestational diabetes mellitus (GDM) in second trimester AMA (advanced maternal age) multigravida 35+, second trimester Hypothyroidism, unspecified type [facility] COMPREHENSIVE ANATOMIC FEZLWECpoyxzz42/04/2025 2:24 PM EDT Screening, , for anatomic survey Multigravida of advanced maternal age in second trimester from Last 3 Months Results * External Lab Orders / Results (02/19/2025 3:15 PM EDT) Only the most recent of3 resultswithin the time period is included. Narrative Authorizing ProviderResult TypeResult StatusNot In System Ref ProvLAB ORDERABLES Final ResultPerforming OrganizationAddressCity/State/ZIP CodePhone Number MANUALLY TRANSCRIBED RESULTS * [facility] OB FOLLOW-UP, 1 FETUS (02/05/2025 2:10 PM EDT) Only the most recent of2 resultswithin the time period is included. Anatomical RegionLateralityModalityOB-GYNUltrasoundSpecimen (Source)Anatomical Location / LateralityCollection Method / VolumeCollection TimeReceived Time 02/05/2025 1:21 PM EDT Narrative 02/06/2025 5:22 PM EDT NAME: ??JUSTICE LEUNG : 1985 SEX: F Accession Number: [id number] ORDERING PHYSICIAN: MYA MASSEY REFERRING PHYSICIAN: MYA MASSEY Coding Procedures ? 57849: Ultrasound, uterus, real time with image documentation, follow up,transabdominal ? approach per fetus ? 78799: Echocardiography, , cardiovascular system, real time with image documentation (2D), with or ? without M-mode recording; follow-up or repeat study Indication Screening for follow-up survey, Screening for congenital cardiac abnormality , Gestational diabetes, AMA- Supervision of elderly , Supervision of high risk -(MOB son - hypospadia, MOB -son - laryngomalacia ), Obesity in , Hypothyroidism. History OB History ? 7. Para 3 ? [id number] Current Cell free DNA ?Low Risk analysis [...] 1 Dating LMP on: ?07/28/[address] [facility] ?27 w + [address] [facility]: ?05/04/2025 Previous Ultrasound on: ?09/11/2024 Type of [...] (oz) ? 4 oz EFW by: ?Hadlock (SPT-EN-AV-FL) Extended Tibia ??46.0 mm 28w 0d 68% [...] Heart/Thorax: 4-chamber view. RVOT view. 3-vessel view. 8-fcrvge-qsfrcsn view. Great vessels. ? Right lung. Left [...] previously RVOT view ?normal 3-vessel view ??normal 9-ibptui-ftxwlyo view ??normal Aortic arch view ? normal [...] MVP measures 6.7 cm. Recommendations Please see [facility] recommendations from prior clinical and/or ultrasound report documentation. anatomic survey is incomplete (suboptimal spine images) due to late gestational age and suboptimal visualization. Patient is not scheduled to return for additional ultrasound. Please reschedule for specific concerns or indications. Subsequent follow up or other follow up as clinically determined by primary OB provider unless otherwise specified by MFM. Results forwarded to ordering provider so they can follow up with the patient as necessary. Procedure Note Lala Gross MD - 02/06/2025 NAME: JUSTICE LEUNG : 1985 SEX: F Accession Number: [id number] ORDERING PHYSICIAN: MYA MASSEY REFERRING PHYSICIAN: MYA MASSEY Coding Procedures 80991: Ultrasound, uterus, real time with image documentation, follow up, transabdominal approach per fetus 80616: Echocardiography, , cardiovascular system, real timewith image documentation (2D), with or without M-mode recording; follow-up or repeat study Indication Screening for follow-up survey, Screening for congenital cardiacabnormality , Gestational diabetes, AMA- Supervision of elderly , Supervision of high risk -(MOB son - hypospadia, MOB -son - laryngomalacia ), Obesity in , Hypothyroidism. History OB History 7. Para 3 [id number] Current Cell free DNA Low Risk analysis [...] EFW (oz) 4 oz EFW by: Hadlock (TOM-BX-TB-FL) Extended Tibia 46.0 mm 28w 0d 68% [...] Heart/Thorax: 4-chamber view. RVOT view. 3-vessel view. 4-hziydg-scymzfbsjng. Great vessels. Right lung. Left lung. Diaphragm. [...] previously RVOT view normal 3-vessel view normal 4-rtguzi-tzvdftn view normal Aortic arch view normal Ductal [...] MVP measures 6.7 cm. Recommendations Please see [facility] recommendations from prior clinical and/or ultrasoundreport documentation. [...] R Montez DOIMG US ORDERABLES Final Result from Last 3 Months Insurance Care Teams Team MemberRelationshipSpecialtyStart DateEnd Date Evans Casas DO PCP - GeneralFamily Medicine07/07/19
--- OUTSIDE RECORDS SUMMARY | 2025-02-26 19:16 | XMS_ITS | Encounter Summary ---
Author Organization [facility] tem Address [id number] [address] [place] [address] Care Team Providers Care Heavy Media Operator Name Role Phone Augusto Evans Tony DO Primary Care Provider [phone] Encounter Details DateTypeDepartmentCare Team (Latest Contact Info)Cijrjwolrdm84/22/2025Orders Only [facility], A Department of [address] [address] Ref Prov, [place] [address] Social History Tobacco UseTypesPacks/DayYears UsedDateSmoking Tobacco: NeverSmokeless Tobacco: NeverAlcohol UseStandard Drinks/WeekCommentsNot Currently0 (1 standard drink = 0.6 oz pure alcohol)ChildcareAnswerDate KyrawcugZfpqrstayJbuhxms92/31/2019 EmploymentAnswerDate EixikiyoPmjhwefohoExmrtye76/31/2019Hunger ScreeningAnswer Date RecordedWithin the past 12 months we worried whether our food would run out before we got money to buy more.Never True01/01/2025Within the past 12 months the food we bought just didn't last and we didn't have money to get more.Never True01/01/2025Purpose - LifeAnswerDate RecordedPurpose and direction in life Kssikdj48/11/2021Estimated Date of ZxhbfnllAjuwabhtTno55/05/2026Based on last menstrual period of 07/28/2024Sex and Gender InformationValueDate Recorded Sex Assigned at BirthNot on fileLegal VnwJqabyo18/31/2019 12:25 PM EDTGender IdentityNot on fileSexual OrientationNot on filedocumented as of this encounter Plan of Treatment DateTypeDepartmentCare Team (Latest Contact Info)Jtwvtprytzk41/11/2025 8:00 AM ESTTelemedicine Maternal- Medicine at [place] [address] [place] [address] Sana Palma MD [address] [place] [address] 03/17/2025 8:30 AM ESTTelemedicine [facility] Department of [address] [address] Sam Callahan MD [address] [address] documented as of this encounter Procedures Procedure NamePriorityDate/TimeAssociated DiagnosisCommentsEXTERNAL LAB ORDERS / JDJCWQPCtcdbpu30/22/2025 1:58 PM EDTdocumented in this encounter Results * External Lab Orders / Results (02/18/2025 1:58 PM EDT) Narrative Authorizing ProviderResult TypeResult StatusNot In System Ref ProvLAB ORDERABLES Final ResultPerforming OrganizationAddressCity/State/ZIP CodePhone Number MANUALLY TRANSCRIBED RESULTS documented in this encounter Visit Diagnoses Not on filedocumented in this encounter Care Teams Team MemberRelationshipSpecialtyStart DateEnd Date Evans Casas DO PCP - GeneralFamily Medicine07/07/19documented as of this encounter
[2025-02-26 19:17] VITALS: BP 122/64; PULSE 80
--- NOTE | 2025-02-26 19:38 | US_ITS ---
The [address] [address] Patient Name: MADHU RENDON MRN: [id number] date: 1985 Sex: F Assigned Patient Location: Current Patient Location: Accession/Order Number: [id number] Exam Date: 02/26/2025 19:42 Report Date: 02/27/2025 10:53 At the request of: MYA MASSEY DO Procedure: US OB BPP w non-stress BIOPHYSICAL PROFILE: CLINICAL INFORMATION: THIRD TRIMESTER Z34.93 COMPARISON: 02/19/2025 There is a single live intrauterine gestation in cephalic presentation. The reported gestational age is 30 weeks 3 days. The heart rate measures 148 beats per minute. FINDINGS: TONE: 1 or more episodes of activity extension and flexion of extremity or opening and closing of the hand [Y] 2/2 GROSS BODY MOVEMENTS: 3 or more discrete body or limb movements [Y] 2/2 BREATHING MOVEMENTS: 1 or more episodes of breathing lasting at least 30 seconds [Y] 2/2 SARAHI: A single deepest vertical pocket of amniotic fluid greater than 2 cm [Y] 2/2 SARAHI: 12.5 cm Total score: 8/8 US/US OB BPP w non-stress IMPRESSION: NORMAL BIOPHYSICAL PROFILE Impression dictated by: Pamela Pisano M.D. 02/27/2025 10:53 AM Dictation Location: [place] [address] Electronically authenticated by: [id number] Y Date: 02/27/2025 10:53
== END 2025-02-26 20:00 | disposition home or self-care (01) ==
LOC: US 19:11 → FBC 19:13
PROVIDERS: Visit Provider Obstetrics & Gynecology
DX: O99.03 Anemia complicating the puerperium (principal); Z79.01 Long term (current) use of anticoagulants; R76.0 Raised antibody titer; R03.0 Elevated blood-pressure reading, without diagnosis of hypertension; D68.9 Coagulation defect, unspecified; Z3A.30 30 weeks gestation of pregnancy
CPT/HCPCS: 76818

== ENCOUNTER 2025-03-02 18:13 | Outpatient (OUT) | payer MEDICAID, SELFPAY ==
--- OUTSIDE RECORDS SUMMARY | 2025-02-09 09:30 | XMS_ITS | Encounter Summary ---
Author Organization [facility] Address [address] [place] [address] Care Team Providers Care Vp Marketing Name Role Phone Evans Casas MD Primary Care Provider [phone] Reason for Visit * ReasonCommentsRoutine Visit Encounter Details DateTypeDepartmentCare Team (Latest Contact Info)Aniwkgtrxrb59/13/2025 10:30 AM EDTRoutine [facility] [address] [place] [phone] Wilton Herrmann DO [address] [place], [place] [id number] Third trimester ([facility]); 28 weeks gestation of ([facility]); Anemia complicating childbirth ([facility]); Anticoagulant long-term use; Antiphospholipid antibody positive; Blood pressure elevated without history of HTN; Coagulation defect, unspecified ([facility]) Social History Tobacco UseTypesPacks/DayYears UsedDateSmoking Tobacco: NeverSmokeless Tobacco: NeverAlcohol UseStandard Drinks/WeekCommentsNever0 (1 standard drink = 0.6 oz pure alcohol)PHQ-2AnswerDate RecordedPatient Health Questionnaire-2 Score0 01/06/2025Estimated Date of SobziyflArrzyccaUrt77/05/2026ased on last menstrual period of 07/28/2024Sex and Gender InformationValueDate RecordedSex Assigned at BirthNot on fileLegal CxlLrboat27/15/2023 11:19 PM EDTGender IdentityNot on fileSexual OrientationNot on filedocumented as of this encounter Last Filed Vital Signs Vital SignReadingTime TakenCommentsBlood Spwowkho082/7610 10:45 AM EDT Pulse--Temperature--Respiratory Rate--Oxygen Saturation--Inhaled Oxygen Concentration--Kokbfq90.9 kg (211 lb 6.4 oz)02/09/2025 10:45 AM [...] to check FSBS. 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 Exam conducted with a willower present. Vitals: Estimated body mass index is 34.12 kg/m?? as calculated from the following: Height as of 11/19/23: 5' 6 . Weight as of this encounter: 211 lb 6.4 oz. BP: 124/76 Patient's last menstrual period was 07/28/2024. ASSESSMENT & PLAN ICD-10-CM 1. Third trimester ([facility]) Z34.93 2. 28 weeks gestation of ([facility]) Z3A.28 CBC and differential POCT urinalysis dipstick [...] givenorders and they were also faxed to [facility] and [facility] Scheduling. Patient to return to clinic in 2 weeks for routine OB appointment. Documented by Rosi Murray LPN on behalf of: Wilton Herrmann DO documented in this encounter Plan of Treatment DateTypeDepartmentCare Team (Latest Contact Info)Myxmepsxybw19/11/2025 9:50 AM ESTRoutine [facility] [address] [place] [phone] Wilton Herrmann DO [address] [place] [address] NameTypePriorityAssociated DiagnosesOrder ScheduleCBC and differentialLabRoutine 28 weeks gestation of ([facility]) Ordered: 02/09/2025US OB follow up transabdominal approachImagingRoutine Third trimester ([facility]) 28 weeks gestation of ([facility]) Anemia complicating childbirth ([facility]) Anticoagulant long-term use Antiphospholipid antibody positive Blood pressure elevated without history of HTN Coagulation defect, unspecified ([facility]) Expected: 02/09/2025, Expires: 06/12/2025US biophysical profile w non stress testImagingRoutine Third trimester ([facility]) 28 weeks gestation of ([facility]) Anemia complicating childbirth ([facility]) Anticoagulant long-term use Antiphospholipid antibody positive Blood pressure elevated without history of HTN Coagulation defect, unspecified ([facility]) Expected: 02/09/2025 (Approximate), Expires: 08/10/2025documented as of this encounter Procedures Procedure NamePriorityDate/TimeAssociated DiagnosisCommentsPOCT URINALYSIS DBEINFDNVoggbxr54/13/2025 10:55 AM EDT 28 weeks gestation of ([facility]) documented in this encounter Results * (ABNORMAL) [...] Location / LateralityCollection Method / VolumeCollection TimeReceived JworVsqfg09/13/2025 10:55 AM EDT Narrative Authorizing ProviderResult TypeResult [...] MemberRelationshipSpecialtyStart DateEnd Date Evans Casas MD [address] [place] [address] PCP - GeneralFamily Medicine11/07/23documented as of this encounter
--- OUTSIDE RECORDS SUMMARY | 2025-02-16 12:45 | XMS_ITS | Encounter Summary ---
Author Organization [facility] s [facility] Address [id number] [address] [place] [address] Care Team Providers Care Tree Marker Name Role Phone Evans Casas DO Primary Care Provider [phone] Reason for Visit * Consultation (Urgent) - Pending ReviewSpecialtyDiagnoses / ProceduresReferred By ContactReferred To ContactRheumatology Diagnoses 22 weeks gestation of Antiphospholipid syndrome complicating , antepartum Wilfrid Medina MD [address] [address] Phone: tel: fax: Sam Callahan MD MPH [address] [place] [phone] Phone: tel: fax: Referral IDStatusReasonStart DateExpiration DateVisits RequestedVisits [id number] Review Specialty Services Required / Encounter Details DateTypeDepartmentCare Team (Latest Contact Info)Ujmmaaxocup75/20/2025 1:45 PM EDTOffice Visit [facility], [facility] Department of [address] [address] Sam Callahan MD MPH [address] [place] [phone] Antiphospholipid syndrome (Primary Dx); Antiphospholipid syndrome complicating , antepartum; History of CVA (cerebrovascular accident); Coordination of complex care; 29 weeks gestation of Social History Tobacco UseTypesPacks/DayYears UsedDateSmoking Tobacco: NeverSmokeless Tobacco: Never Tobacco Cessation:Counseling Given: Not Answered Alcohol UseStandard Drinks/WeekCommentsNot Currently0 (1 standard drink = 0.6 oz pure alcohol)ChildcareAnswerDate LqjostbiFwkcjoxdkCspybik81/31/2019Employment AnswerDate DsqldglpGpkmabfylePteyoxd27/31/2019Hunger ScreeningAnswerDate RecordedWithin the past 12 months we worried whether our food would run out before we got money to buy more.Never True01/01/2025Within the past 12 months the food we bought just didn't last and we didn't have money to get more.Never True01/01/2025Purpose - LifeAnswerDate RecordedPurpose and direction in life Xbjaptf86/11/2021Estimated Date of QymzbousKjtdbxmiKjb21/05/2026Based on last menstrual period of 07/28/2024Sex and Gender InformationValueDate Recorded Sex Assigned at BirthNot on fileLegal EnmCbqoml31/31/2019 12:25 PM EDTGender IdentityNot on fileSexual OrientationNot on filedocumented as of this encounter Last Filed Vital Signs Vital SignReadingTime TakenCommentsBlood Cdbnhoww928/8010 1:44 PM EDT Tsjar177502/16/2025 1:44 PM EDTTemperature--Respiratory Ccah8725 1:44 PM EDTOxygen Saturation--Inhaled Oxygen Concentration--Vwqatj89.8 kg (209 lb) 02/16/2025 1:44 PM EMZLzxpex579.6 cm (5' 6 )02/16/2025 1:44 PM EDTBody Mass Index33.7302/16/2025 1:44 PM EDTdocumented in this encounter Progress Notes * Sam Callahan MD MPH - 02/16/2025 1:45 PM EDT Images from the original note were not included. ADULT RHEUMATOLOGY CLINIC NOTE [address] [phone] Patient Name: Sanna Bone Subjective Reason for Rheumatology Consultation: 22 weeks gestation, antiphospholipid syndrome complicating History of Present Illness: Sanna Bone is a 39 y.o. female who presents as a referral from her maternal medicine specialist (Dr. Medina) for concern of antiphospholipid syndrome in the setting of current . The patient presented to the office today accompanied by her . She has been following with two outside specialists (Neurology at [facility] and Hematology at [facility]) for management of her APS. The patient notes that she experienced symptoms of a CVA back in 2015 where she had facial droop, abnormal speech and lower extremity weakness. She notes that she was not told about the stroke diagnosis right away and eventually sought care with a Neurologist in 2017 who reviewed her prior rec ords and brain imaging and raised concern for a CVA. At that time she underwent serological testingto look for potential causes or risk factors for strokes. She was found to have positive anti-cardiolipin at that time that remained persistently positive with repeat testing over the subsequent years (2019 and 2024). Given that she had persistent positivity of aCL IgG and had a history of stroke she was asked to start on anticoagulation. The patient notes that she was first given aspirin but notes that she had a significant increase in the clotting and severity of her periods so she stopped the medication. She also had concerns about potential electrolyte abnormalities linked back to the aspirin, but I explained that this would be quite unusual. In review of her previous notes, it also seems that she was recommended to take plavix (presumably to reduce CVA risk) but she stopped this medication as well in the past. She also notes discussion with her other specialists about potentially being on warfarin but notes that she has been several times over the past few years and there was never a feasible time to start warfarin after and before her next . Shehas been on lovenox in the past and is presently on full AC dosing (80 mg subq daily). She was previously on 40 mg subq and it seems that the patient preferred to be on prophylactic dosing rather than full dosing before her . She has never previously been on HCQ. And she is not presently on aspirin. She did have some additional autoimmune serological testing done earlier this year (June 2024). This testing showed negative NASEEM screen but NASEEM by IFA was not completed. Additional ROS & History: -no hx of CVD -does note a history of leaky valve had a recent updated echo but does not know the results yet -no history of renal disease -has had previous hx of renal stones -has hypothyroidism and is on levothyroxine -has gestational diabetes -no hx of DVT or PE -no respiratory issues -no history of seizures -does have history of CVA (see above) Family Hx: -patient is adopted so has minimal history about biological parents -paternal aunt with MS -biological mother with some sort of health issues unclear exact diagnoses Note from [facility] Provider (Dr. Medina): Recent note from Neurologist: Subjective Review of Systems: see above for detailed ROS CONSTITUTIONAL: Admits: [] Weight Loss [] Fever [] Frequent Night Sweats OPHTHALMOLOGIC: Admits: [] Glaucoma [] History or Current Inflammatory Eye Disease [] Cataracts ENT: Admits: [] Oral/Nasal Ulcers [] epistaxis [] Recurrent Sinusitis [] Dry Eyes [] Dry mouth CARDIOVASCULAR: Admits: [] Chest pain [] Pericarditis/Pleuritis [] Palpitations [] Edema RESPIRATORY: Admits: [] hemoptysis [] Dyspnea on Exertion [] Cough [] Wheezing GASTROINTESTINAL: Admits: [] Bloody Stool [] Diarrhea [] Vomitting GENITOURINARY: Admits: [] Blood in urine [] Genital Ulcers [] Burning/pain with urination MUSCULOSKELETAL: Admits: [] Muscle Pain [] Joint Pain INTEGUMENTARY: Admits: [] Skin changes [] Sclerodactyly [] Raynauds [] Photosensitivity [] Alopecia NEUROLOGIC: Admits: [] Recurrent Headaches [] Limb Weakness [] Numbness/Tingling PSYCHIATRIC: Admits: [] Insomnia [] Depression [] Anxiety ENDOCRINE: Admits: [] Thyroid abnormalities HEMATOLOGY/LYMPH: Admits: [] Notable Swollen Lymph Nodes [] History of Cytopenias [] Bruising tendency [] History ofDVT/PE All non checked boxes, patient denies. All other 10 point ROS reviewed and negative. Current Outpatient Medications Medication Sig Dispense Refill alcohol swabs pads, medicated Apply 1 each topically in the morning and 1 each at noon and 1 each in the evening and 1 each before bedtime. Clean off finger before testing blood glucose. blood sugar diagnostic (glucose blood) strip 1 strip by other route as needed for low blood sugar or high blood sugar. Use to check blood sugar 4 times daily blood-glucose meter (BLOOD GLUCOSE MONITORING) kit 1 each by other route in the morning. Use to check blood sugar 4 times daily . blood-glucose sensor (FREESTYLE SOPHIE 3 PLUS SENSOR) device Wear for 15 days and change 2 each 6 docusate sodium (COLACE) 100 mg capsule Take 1 capsule (100 mg total) by mouth in the morning. enoxaparin (LOVENOX) 40 mg/0.4 mL syringe Inject 0.4 mL (40 mg total) under the skin Every 12 (twelve) hours. 24 mL 6 lancets misc 1 each in the morning and 1 each at noon and 1 each in the evening and 1 each before bedtime. Use to check blood sugar 4 times daily. levothyroxine (SYNTHROID) 25 MCG tablet Take 1 tablet (25 mcg total) by mouth in the morning. metFORMIN XR (GLUCOPHAGE XR) 500 mg 24 hr tablet Take 1500 mg at night. 90 tablet 4 pen needle, diabetic (BD ULTRA-FINE ENID PEN NEEDLE) 32 gauge x 5/32 needle Use a new needle with each injection ( 1- 5 times per day) 100 each 3 polyethylene glycol (GLYCOLAX) 17 gram packet Take 17 g by mouth in the morning. 19 29 mg iron- 1 mg tablet,chewable Chew 1 tablet and swallow in the morning. 6 azithromycin (ZITHROMAX) 250 mg tablet Take 1 tablet (250 mg total) by mouth in the morning. Take 2tablets the first day, then 1 tablet daily for 4 days. CEPHalexin (KEFLEX) 500 mg capsule Take 1 capsule (500 mg total) by mouth in the morning and 1 capsule (500 mg total) at noon and 1 capsule (500 mg total) in the evening and 1 capsule (500 mg total) before bedtime. progesterone (PROMETRIUM) 200 mg capsule Take 1 capsule (200 mg total) by mouth in the morning. No current facility-administered medications for this visit. reviewed. Patient Active Problem List Diagnosis Antiphospholipid syndrome complicating , antepartum Anemia AMA (advanced maternal age) multigravida 35+ Antiphospholipid syndrome Hypothyroid Stroke ([facility]) Gestational diabetes mellitus (GDM) in second trimester controlled on oral hypoglycemic drug reviewed. Past Surgical History: Procedure Laterality Date BREAST BIOPSY 2013 PELVIC LAPAROSCOPY WISDOM TOOTH EXTRACTION 2006 reviewed. Social History Tobacco Use Smoking status: Never Smokeless tobacco: Never Vaping Use Vaping status: Never Used Substance Use Topics Alcohol use: Not Currently Drug use: Never reviewed. Past Medical History: Diagnosis Date AMA (advanced maternal age) multigravida 35+ Anemia Antiphospholipid antibody syndrome Cerebral infarction, unspecified ([facility]) 05/16/2019 Hypothyroid Migraine without aura and without status migrainosus, not intractable 09/12/2017 Stroke ([facility]) 2016 reviewed. Social History Social History Narrative Not on file reviewed Family History Problem Relation Age of Onset Cancer Paternal Grandfather Diabetes Paternal Grandfather T2DM Cancer Paternal Grandmother Diabetes Paternal Grandmother T2DM Mental illness Maternal Grandmother Stroke Father Diabetes Father T2DM Diabetes Sister T2DM reviewed. Allergies Allergen Reactions Ciprofloxacin Dizziness Lactose GI Disturbance Diarrhea Lactalbumin Other (See Comments) Other reaction(s): GI Upset Crampy and gassy Milk Containing Products (Dairy) Other (See Comments) Crampy and gassy reviewed. The following portions of the patient's history were reviewed and updated as appropriate: allergies, current medications, past family history, past medical history, past social history, past surgicalhistory and problem list. The following portions of the patient's history were reviewed and updated as appropriate: allergies, current medications, past family history, past medical history, past social history, past surgicalhistory and problem list. Objective Objective Physical Exam: BP 126/80 Pulse 79 Resp 18 Ht 167.6 cm (5' 6 ) Wt 94.8 kg (209 lb) LMP 07/28/2024 BMI 33.73 kg/m?? : reviewed GEN: AOx3, NAD EYES: Clear lenses, sclerae white, conjunctiva pink. ENT: External ears normal. Nares and nasal mucosa normal. Normal oral aperture. No oropharyngeal lesions. NECK: supple, no LAD. LUNGS: CTAB. HEART: Regular rhythm, normal S1/S2, no M/R/G. ABD: Soft, non-distended, non-tender. VASC: Ext warm, peripheral pulses 2+, no edema. MSK: Evaluated the large and small joints of the upper and lower extremities including the bilateral shoulders, elbows, wrists, hands, knees, ankles, and feet. Unless otherwise stated below, joints were without deformity, impairment in ROM, warmth, or tenderness to palpation. Pertinent MSK Findings: No evidence of synovitis in the small joints of the bilateral hands or wrists. No significant evidence of bilateral knee or ankle effusion at this time. INTEGUMENT: Skin, nails, and hair normal unless otherwise stated below. NEURO: Alert. Sensation intact to soft touch. Normal muscle bulk and strength in trunk and limbs. PARTIDA-28 (If Applicable) There is currently no information documented on the homunculus. Go to the Rheumatology activity andcomplete the homunculus joint exam. PARTIDA-28 (CRP): -- PARTIDA-28 (ESR): -- Tender (PARTIDA-28): -- Swollen (PARTIDA-28): -- Labs and Imaging: reviewed and discussed with the patient during the visit. General Labs: No results found for: WBC , HGB , HCT , MCV , PLT No results found for: CREATININE , BUN , NA , K , CL , CO2 No results found for: ALT , AST , GGT , ALKPHOS , LABBILI Inflammatory Markers No results found for: CRP RA-related Auto-Ab's No results found for: RF NASEEM & related Labs No results found for: NASEEM , ANTIRNP , ANTISMRNP , C3 , C4 Scleroderma-related Auto-Ab's No results found for: SCL70 , JO1 Myositis-related Auto-Ab's No results found for: JO1 APLS-related Auto-Ab's No results found for: DRVVT Vasculitis-related Auto-Ab's No results found for: MYELOPEROXID Imaging / Special Studies Reviewed in EMR. Assessment / Recommendations 1. Antiphospholipid syndrome 2. Antiphospholipid syndrome complicating , antepartum 3. History of CVA (cerebrovascular accident) 4. Coordination of complex care 5. 29 weeks gestation of Overall Impression: Sanna Bone is a 39 y.o. female patient with a history of CVA in 2016 with subsequent findings of persistently positive anti-cardiolipin IgG that led to a diagnosis of APS. She has not been on warfarin therapy thus far due to recurrent pregnancies. However she has tried antiplatelet agents inthe form of plavix and aspirin and is presently on therapeutic dosing of lovenox and is about 29 weeks . She is currently following with [facility] for her , neurology through the [employer] system, and hematology through [facility]. Based on extensive review of her outside records I do agree that the patient has clinical and serological findings to support a diagnosis of APS. However, it is less clear if she has a concurrent systemic autoimmune disease such as SLE because her lab work is incomplete (never had an NASEEM by IFA). Today we will complete her additional serological testing. Recommendations: Labs, Imaging, Special Studies: Orders Placed This Encounter Procedures Antinuclear Ab, HEp-2 Substrate, S (NASEEM by IFA) Standing Status: Future Expiration Date: 02/16/2026 Release to patient via Transactivhart?: Immediate [1] Complement profile (C3 AND C4) Standing Status: Future Expiration Date: 02/16/2026 Release to patient via Transactivhart?: Immediate [1] DNA double-stranded (dsDNA) Abs by Rene angel IFA Standing Status: Future Expiration Date: 02/16/2026 Release to patient via Transactivhart?: Immediate [1] KELLEN Panel Standing Status: Future Expiration Date: 02/16/2026 Release to patient via Transactivhart?: Immediate [1] Treatment Plan: -if the patient has positive NASEEM by IFA we can consider the addition of HCQ -I agree with continuing therapeutic dose lovenox in the setting of APS and -she would likely also benefit from concurrent low dose aspirin therapy but I understand the patient is hesitant to be on aspirin given previous perceived side effects -After and breast feeding are complete a discussion must once again take place where recommendations to start warfarin are reviewed Consults/Referrals: -I will forward my notes to her other specialists including her [facility] physician, neurologist, and hematology provider Health Maintenance: -The patient should continue to follow with their PCP for age and risk factor appropriate cancer screening and immunizations. Follow-up: -4-6 weeks, video visit is OK Sam Callahan MD, MPH [facility] [address] [place], [place] [phone] Total fjii-sw-ueei time was 55 minutes with more than 50% of the visit spent counseling and discussing diagnostic or treatment recommendations, prognosis, risks and benefits of management options, instructions, compliance or risk- factor reduction. This note was created with the assistance of a speech recognition program. While intending to generate a timely document that accurately reflects the content of the visit, no guarantee can be provided that every grammatical or spelling mistake has been or will be identified or corrected. Thank you for your understanding. documented in this encounter Plan of Treatment DateTypeDepartmentCare Team (Latest Contact Info)Nflsufqukbm37/11/2025 8:00 AM ESTTelemedicine Maternal- Medicine at [address] [phone] Sana Palma MD [address] [place] [phone] 03/17/2025 8:30 AM ESTTelemedicine [facility], [facility] Department of [address] [address] Sam Callahan MD MPH [address] [place] [phone] NameTypePriorityAssociated DiagnosesOrder ScheduleAntinuclear Ab, HEp-2 Substrate, S (NASEEM by IFA)LabRoutine Antiphospholipid syndrome Antiphospholipid syndrome complicating , antepartum History of CVA (cerebrovascular accident) 1 Occurrences starting 02/16/2025 until 02/16/2026omplement profile (C3 AND C4) LabRoutine Antiphospholipid syndrome Antiphospholipid syndrome complicating , antepartum History of CVA (cerebrovascular accident) 1 Occurrences starting 02/16/2025 until 02/16/2026DNA double-stranded (dsDNA) Abs by Rene angel IFALabRoutine Antiphospholipid syndrome Antiphospholipid syndrome complicating , antepartum History of CVA (cerebrovascular accident) 1 Occurrences starting 02/16/2025 until 02/16/2026ENA PanelLabRoutine Antiphospholipid syndrome Antiphospholipid syndrome complicating , antepartum History of CVA (cerebrovascular accident) 1 Occurrences starting 02/16/2025 until 02/16/2026documented as of this encounter Visit Diagnoses Diagnosis Antiphospholipid syndrome- Primary Primary hypercoagulable state Antiphospholipid syndrome complicating , antepartum History of CVA (cerebrovascular accident) Transient ischemic attack (TIA), and cerebral infarction without residual deficits Coordination of complex care 29 weeks gestation of documented in this encounter Care Teams Team MemberRelationshipSpecialtyStart DateEnd Date Evans Casas DO PCP - GeneralFamily Medicine07/07/19documented as of this encounter
--- OUTSIDE RECORDS SUMMARY | 2025-02-23 08:00 | XMS_ITS | Encounter Summary ---
Author Organization [facility] Address [address] [place] [address] Care Team Providers Care Fisher Hoop Net Name Role Phone Evans Casas MD Primary Care Provider [phone] Reason for Visit * ReasonCommentsRoutine Visit Encounter Details DateTypeDepartmentCare Team (Latest Contact Info)Ozhymuzfwch03/27/2025 9:00 AM EDTRoutine [facility] [address] [place] [phone] Wilton Herrmann DO [address] [place], [place] [id number] Third trimester ([facility]); 30 weeks gestation of ([facility]) Social History Tobacco UseTypesPacks/DayYears UsedDateSmoking Tobacco: NeverSmokeless Tobacco: NeverAlcohol UseStandard Drinks/WeekCommentsNever0 (1 standard drink = 0.6 oz pure alcohol)PHQ-2AnswerDate RecordedPatient Health Questionnaire-2 Score0 01/06/2025Estimated Date of IlcmleppAoqajebaZin23/05/2026ased on last menstrual period of 07/28/2024Sex and Gender InformationValueDate RecordedSex Assigned at BirthNot on fileLegal JqzQqeetn97/15/2023 11:19 PM EDTGender IdentityNot on fileSexual OrientationNot on filedocumented as of this encounter Last Filed Vital Signs Vital SignReadingTime TakenCommentsBlood Gxbyideu461/7202/23/2025 9:26 AM EDT Pulse--Temperature--Respiratory Rate--Oxygen Saturation--Inhaled Oxygen Concentration--Fplmln64.5 kg (210 lb 8 oz)02/23/2025 9:26 AM EDTHeight--Body Mass Index33.98011/19/2023 1:48 PM EDTdocumented in this encounter Progress Notes * Rosi Rodriguezsaundra, DEB - 02/23/2025 9:00 AM EDT Reason for Appointment: Patient ID: Sanna Bone is a 39 y.o. female who presents for Routine Visit Patient presents today for Return OB appointment. MEDICATIONS Current Outpatient Medications Medication Instructions Alcohol Swabs (Alcohol Prep Pad) 70 % pads 1 Pad, Topical, Daily, Use four times daily to check FSBS. Blood Glucose Monitoring Suppl (D-Garmor Glucometer) w/Device kit 1 kit, Does not [...] Diagnosis Date Noted 32 weeks gestation of ([facility]) 11/28/2019 Abdominal pain 06/12/2023 Acute bronchitis due to infection 06/12/2023 Acute on chronic vesicular eczema of hands and feet 11/15/2023 Anemia complicating childbirth ([facility]) 01/16/2020 Anticoagulant long-term use 02/22/2020 Antiphospholipid antibody positive 09/10/2017 Antiphospholipid antibody syndrome ([facility]) 07/07/2019 Anxiety 06/12/2023 Blood pressure elevated without history of HTN 11/15/2023 BMI 37.0-37.9, adult 11/15/2023 Cerebral infarction, unspecified ([facility]) 05/16/2019 Cerebrovascular accident (CVA) due to stenosis of middle cerebral artery ([facility]) 02/22/2020 Cervicalgia 02/05/2019 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 ([facility]) 01/08/2020 Coagulation defect, unspecified ([facility]) 02/05/2019 Cold intolerance 11/15/2023 Deficiency of other specified B group vitamins 05/16/2019 Deviated septum 11/15/2023 Dizziness and giddiness 02/05/2019 Dry mouth 11/15/2023 Dysfunction of eustachian tube 06/12/2023 Dyspnea 06/12/2023 Elevated blood pressure reading 11/15/2023 Encounter for supervision of normal , unspecified, first trimester ([facility]) 05/29/2019 Environmental allergies 11/15/2023 Fatigue 12/29/2016 First degree perineal laceration during delivery ([facility]) 01/16/2020 Frequency of micturition 02/19/2019 Genitourinary symptoms 08/19/2021 Gestational diabetes mellitus (GDM), antepartum ([facility]) 01/26/2022 H/O: hypothyroidism 11/15/2023 Hematochezia 06/12/2023 [...] anemia 01/16/2020 Irregular uterine bleeding 11/15/2023 problem ([facility]) 06/12/2023 Less than 8 weeks gestation of ([facility]) 06/05/2019 nursing home (current) use of 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/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 02/05/2019 Migraine without aura and without status migrainosus, not intractable 09/12/2017 Morbid obesity ([facility]) 11/15/2023 Muscle fasciculation 08/19/2021 Nasal polyps 11/15/2023 Non-smoker 11/15/2023 NEETA (obstructive sleep apnea) 11/15/2023 Other acute postprocedural pain 02/03/2019 Other general symptoms and signs 10/28/2019 Other immediate hemorrhage ([facility]) 01/16/2020 Other specified noninflammatory disorders of vagina 02/21/2019 Pain in joint 12/29/2016 Palpitations 08/26/2019 Paresthesia of bilateral legs 11/15/2023 Pelvic and perineal pain 02/01/2019 Personal history of urinary (tract) infections 01/16/2020 Pre-diabetes 11/15/2023 Primary hypercoagulable state ([facility]) 08/01/2022 Pruritus, unspecified 01/02/2020 Psychogenic hyperventilation 06/12/2023 Raised antibody titer 09/25/2017 Right lower quadrant pain 11/15/2023 Right otitis externa 11/15/2023 Salivary gland swelling 11/15/2023 Single live ([facility]) 01/15/2020 Snoring 11/15/2023 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) 12/30/2019 Suspected severe acute respiratory syndrome coronavirus 2 (SARS-CoV-2) infection 06/12/2023 SVT (supraventricular tachycardia) ([facility]) 08/26/2019 Syncope and collapse 06/03/2018 Other bacterial infections of unspecified site 06/27/2019 Thrombocytopenia, unspecified 11/20/2019 Hypoglycemia 06/12/2023 Unspecified condition associated with female genital organs and menstrual cycle 05/09/2019 Unspecified ovarian cyst, right side 02/06/2019 Urinary tract infection 10/16/2019 Referred otalgia of right ear 11/19/2023 LPRD (laryngopharyngeal reflux disease) 11/19/2023 H/O loss 01/05/2025 Multigravida of advanced maternal age in second trimester ([facility]) 01/05/2025 Thyroid disease 01/05/2025 Resolved Ambulatory [...] drainage of cyst WISDOM TOOTH EXTRACTION 2007 [place] teeth REVIEW OF SYSTEMS Review of Systems: [...] nursing note reviewed. Exam conducted with a stitching machine setter present. Vitals: Estimated body mass index is 33.98 kg/m?? as calculated from the following: Height as of 11/19/23: 5' 6 . Weight as of this encounter: 210 lb 8 oz. BP: 116/72 Patient's last menstrual period was 07/28/2024. Assessment/Plan ICD-10-CM 1. Third trimester ([facility]) Z34.93 2. 30 weeks gestation of ([facility]) Z3A.30 POCT urinalysis dipstick manually resulted Patient presents today for a routine obstetrics appointment. Patient is currently 30w0d with a Estimated Date of Delivery: 05/04/25. Patient complaints of increase vaginal pressure and Breech presentation. Patient is not concerned at this time as she is not having contractions. RTC in 2 weeks. Documented by Rosi Murray LPN on behalf of: Wilton Herrmann DO documented in this encounter Plan of Treatment DateTypeDepartmentCare Team (Latest Contact Info)Ndafnjnnjpb66/11/2025 9:50 AM ESTRoutine [facility] [address] [place] [phone] Wilton Herrmann DO [address] [place] [address] documented as of this encounter Procedures Procedure NamePriorityDate/TimeAssociated DiagnosisCommentsPOCT URINALYSIS FCLFJBSTBqcblwj79/27/2025 9:38 AM EDT 30 weeks gestation of ([facility]) documented in this encounter Results * POCT urinalysis dipstick manually resulted (02/23/2025 9:38 AM EDT)Component ValueRef RangeTest MethodAnalysis TimePerformed AtPathologist SignatureColor, UAYellowClarity, UAClearGlucose, UANegativeNegative - 2000(110) ++++ mg/dL Bilirubin, UANegativeNegative - 4(70) +++ mg/dLKetones, UANegativeNegative - 160(16) ++++ mg/dLSpec Grav, UA1.0101 - 1.03Blood, UANegativeNegative - 50 Max/mcLpH, UA6.05 - 9Protein, UANegativeNegative - 2000(20) ++++ mg/dL Urobilinogen, UA0.20.2 - 12 mg/dLLeukocytes, UANegativeNegative - 500+++ John/mcLNitrite, UANegativeNegative - PositiveSpecimen (Source)Anatomical Location / LateralityCollection Method / VolumeCollection TimeReceived Time Urine02/23/2025 9:38 AM EDT Narrative Authorizing ProviderResult TypeResult StatusCorey Montez DOPOINT OF CARE TEST ENTER/EDIT ORDERABLESFinal Result documented in this encounter Visit Diagnoses Diagnosis Third trimester ([facility]) state, incidental 30 weeks gestation of ([facility]) documented in this encounter Care Teams Team MemberRelationshipSpecialtyStart DateEnd Date Evans Casas MD [address] [place] [address] PCP - GeneralFamily Medicine11/07/23documented as of this encounter
--- OUTSIDE RECORDS SUMMARY | 2025-03-02 11:30 | XMS_ITS | Encounter Summary ---
Author Organization [facility] Address [address] [place] [address] Care Team Providers Care Fretted Instruments Inspector Name Role Phone Jonny Wilcox MD Unavailable [phone] Cosmo Elliott MD Unavailable [phone] Davida Restrepo RN Unavailable [phone] Evans Casas DO Primary Care Provider [phone] Source Comments In the event this information is protected by the Federal Confidentiality of Alcohol and Drug AbusePatient Records regulations: The Federal rules restrict any use of the information to criminally investigate or prosecute any alcohol or drug abuse patient.[facility] Reason for Visit * ReasonCommentsEstablished Patient Encounter Details DateTypeDepartmentCare Team (Latest Contact Info)Qpygftdbqrw98/03/2025 11:30 AM ESTVisit (SP) Office Hematology/Oncology [address] [place] [address] 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 APRN.DIE REPAIRER [employer]MER [employer] [address] [place] [address] Antiphospholipid antibody positive (Primary Dx); Iron deficiency anemia secondary to blood loss (chronic); Vitamin D deficiency; Primary hypercoagulable state (HCC); CVA, old, speech/language deficit Social History Tobacco UseTypesPacks/DayYears UsedDateSmoking Tobacco: NeverSmokeless Tobacco: NeverAlcohol UseStandard Drinks/WeekCommentsNo0 (1 standard drink = 0.6 oz pure alcohol)PHQ-2AnswerDate RecordedPHQ-2 tolha5254Area Deprivation Index AnswerDate RecordedNational Score (1-100), lower number is lower risk58 09/28/2022State Score (1-10), lower number is lower bffn3803Data from: https://www.neighborhoodatlas.[facility].edu/. Last address used for [address]Estimated Date of DeliveryCommentsYes 07/28/2024Sex and Gender InformationValueDate RecordedSex Assigned at BirthNot on fileLegal HmlXlmkug72/29/2018 10:06 AM ESTGender IdentityNot on fileSexual OrientationNot on fileOccupationIndustryJob Start DateJob End Datestay at home momNot on fileNot on fileNot on filedocumented as of this encounter Last Filed Vital Signs Vital SignReadingTime TakenCommentsBlood Llszunoc396/7911 11:56 AM EST Lpefn241403/02/2025 11:56 AM JUESnmqldchhjw86.2 ??C (97.2 ??F)03/02/2025 11:56 AM ESTRespiratory Uize755505/02/2024 11:56 AM ESTOxygen Notxlcxqji50%03/02/2025 11:56 AM ESTInhaled Oxygen Concentration--Iheyjx16.2 kg (214 lb 4.6 oz)03/02/2025 11:56 AM ESTHeight--Body Mass Index34.5608 11:34 AM EDTdocumented in this encounter Plan of Treatment DateTypeDepartmentCare Team (Latest Contact Info)Dplpaqctuwr22/01/2025 8:00 AM ESTOffice Visit [facility] [address] [place] [address] [place] [address] Return in 4 weeks lab and possible iron03/30/2025 8:20 AM ESTVisit (SP) Office Hematology/Oncology [address] [place] [address] Salvador Dos Santos MD [address] [place] [address] Return in 4 weeks lab and possible iron03/30/2025 8:[address] [facility] Hematology/Oncology [address] [place] [address] Return in 4 weeks lab and possible irondocumented as of this encounter Visit Diagnoses Diagnosis Antiphospholipid antibody positive- Primary Other and unspecified nonspecific immunological findings Iron deficiency anemia secondary to blood loss (chronic) Vitamin D deficiency Unspecified vitamin D deficiency Primary hypercoagulable state (HCC) Primary hypercoagulable state CVA, old, speech/language deficit Speech and language deficit, unspecified, late effect of cerebrovascular disease documented in this encounter Care Teams Team MemberRelationshipSpecialtyStart DateEnd Date Evans Casas DO [address] [place] [address] PCP - GeneralFamily Whkqibwo02/3/22 Jonny Wilcox MD [address] [place] [address] Primary Staff PhysicianCardiology07/16/18 [place] [address] [place] [address] PhysicianHematology/Oncology09/14/21 Davida Restrepo, RN [address] [place] [address] Specialty Care CoordinatorHematology/Oncology09/14/21documented as of this encounter
--- OUTSIDE RECORDS SUMMARY | 2025-03-02 18:17 | XMS_ITS | Clinical Summary ---
Author Organization [employer] tem Address [facility] [address] [place] [address] Care Team Providers Care Creative Strategist Name Role Phone Evans Casas DO Primary Care Provider [phone] Allergies Active AllergyReactionsCriticalityNoted DateCommentsCiprofloxacinDizziness 06/19/2019LactalbuminOther (See Comments)Low05/25/2017 Other reaction(s): GI Upset Crampy and gassy LactoseGI Sigjalvxmpk88/14/2018 Diarrhea Milk Containing Products (Dairy)Other (See Comments)Low05/25/2017 [...] in second trimester controlled on oral hypoglycemic drug12/17/20241622Lwayfk04/08/2025MA (advanced maternal age) multigravida 35+11/04/2024ntiphospholipid syndrome 11/04/20245153Hzussdpdzke90/08/8311Fuwalh78/08/2025ntiphospholipid syndrome complicating , gequuleumy11/09/2020Estimated Date of Delivery SifrehspTsk76/05/2026ased on last menstrual period of 07/28/2024 Resolved Problems ProblemNoted DateDiagnosed DateResolved DateCerebral infarction, unspecified Migraine without aura and without status migrainosus, not Encounters DateTypeDepartmentCare JgdsMclmerujfzb02/23/2025Orders Only [facility], A Department of [address] [address] Ref Prov, Not In System 02/18/2025Orders Only [facility], [facility] Department of [address] [address] Ref Prov, Not In System 02/16/2025 1:45 PM EDTOffice Visit [facility], [facility] Department of [place] [id number] [address] Sam Callahan MD MPH Antiphospholipid syndrome (Primary Dx); Antiphospholipid syndrome complicating , antepartum; History of CVA (cerebrovascular accident); Coordination of complex care; 29 weeks gestation of sqfnlkobv81/20/7938Wrwqbh73/14/2025Telephone Maternal- Medicine at [address] [address] Annita Kendall LD 02/06/2025 2:00 PM EDTTelemedicine Maternal- Medicine at [address] [address] Wilfrid Medina MD 27 weeks gestation of (Primary Dx); Multigravida of advanced maternal age in third trimester; Gestational diabetes mellitus (GDM) in second trimester controlled on oral hypoglycemic drug; Antiphospholipid syndrome complicating , antepartum; Antiphospholipid /10/1867Aswcgt48/09/2381Bejxtb45/16/2025 10:00 AM EDT Telemedicine Maternal- Medicine at [place] [address] [place] [address] Davida Smith PA-C Gestational diabetes mellitus (GDM) in second trimester controlled on oral hypoglycemic drug (Primary Dx); Antiphospholipid syndrome; Other specified hypothyroidism; Antiphospholipid syndrome complicating , tonjhficfb83/16/2025Travel 01/09/2025Telephone Maternal- Medicine at [facility] [address] [place] [address] Wilfrid Medina MD 01/09/2025Orders Only Maternal- Medicine at [facility] [address] [place] [address] Wilfrid Medina MD Antiphospholipid syndrome (Primary Dx)01/07/2025Telephone Maternal- Medicine at [facility] [address] [place] [address] Jacque Pat RN 01/06/2025Telephone Maternal- Medicine at [facility] [address] [place] [address] Margo Khan RN 01/05/2025Orders Only Maternal- Medicine at [facility] [address] [place] [address] Jacque Pat, MARSHA Multigravida of advanced maternal age in second trimester (Primary Dx); Antiphospholipid syndrome complicating , antepartum; Gestational diabetes mellitus (GDM) in second trimester controlled on oral hypoglycemic drug; AMA (advanced maternal age) multigravida 35+, second trimester; Hypothyroidism, unspecified type; History of stroke; History of loss in prior , currently in second trimester; Hypothyroidism affecting in second trimester; Family history of autism; Beqgjttizmzz65/08/2025Documentation Maternal- Medicine at [facility] [address] [facility] [address] Jacque Pat RN 01/01/2025 2:30 PM EDTTelemedicine Maternal Medicine [place] [address] [facility] [address] [place] [address] Wilfrid Medina MD 22 weeks gestation of (Primary Dx); Antiphospholipid syndrome complicating , antepartum; History of stroke; History of loss in prior , currently in second trimester; Gestational diabetes mellitus (GDM) in second trimester controlled on oral hypoglycemic drug; Multigravida of advanced maternal age in second trimester; Hypothyroidism affecting in second trimester; Family history of autism; Ngnquhdotgmp58/04/2025Orders Only [facility] [place] [address] [facility] [address] [place] [address] Iraida Warren RN Multigravida of advanced maternal age in second trimester (Primary Dx); Antiphospholipid syndrome complicating , antepartum; Gestational diabetes mellitus (GDM) in second trimester controlled on oral hypoglycemic drug; Insulin controlled gestational diabetes mellitus (GDM) in second trimester; AMA (advanced maternal age) multigravida 35+, second trimester; Hypothyroidism, unspecified type01/01/20258632Qkahwp25/29/2025Orders Only [facility] - Labor [address] [facility] [place] [address] Wilfrid Medina MD Gestational diabetes mellitus (GDM) in second trimester controlled on oral hypoglycemic drug (Primary Dx)12/26/2024Telephone Maternal- Medicine at [facility] [address] [place] [address] Stephanie Quiros LD 12/17/2024 3:30 PM EDTTelemedicine Maternal- Medicine at [facility] [address] [place] [address] Alisa Saba APRN-TOR Gestational diabetes mellitus (GDM) in second trimester controlled on oral hypoglycemic drug (Primary Dx)12/17/20244353Xpknbh20/15/2025Orders Only Maternal- Medicine at [facility] [address] [place] [address] Star Waggoner MD 12/12/2024Telephone Maternal- Medicine at [facility] [address] [place] [address] Annita Kendall LD 12/12/2024Telephone Maternal- Medicine at [facility] [address] [place] [address] Annita Kendall, PRISCILLA 12/03/2024 2:00 PM EDTTelemedicine Maternal- Medicine at [facility] [address] [place] [address] Alisa Saba APRN-TOR Insulin controlled gestational diabetes mellitus (GDM) in second trimester (Primary Dx)12/03/2024Telephone Maternal- Medicine at [facility] [address] [place] [address] Anni Abreu CMA 12/02/2024Travelfrom Last 3 Months Family History Medical KsqeeffQesuszazQvvgYycxokswUbpswmzvIipdveW0SJHohaaxEgxaamHjbnzw illness Maternal GrandmotherCancerPaternal GrandfatherDiabetesPaternal LaeyjefahnnN1NK CancerPaternal GrandmotherDiabetesPaternal AnzknojclhgY3XQDikmzewnCklonkJ2RC RelationNameStatusCommentsFatherDeceasedMaternal GrandmotherPaternal Grandfather Paternal GrandmotherSister Social History Tobacco UseTypesPacks/DayYears UsedDateSmoking Tobacco: NeverSmokeless Tobacco: Never Tobacco Cessation:Counseling Given: Not Answered Alcohol UseStandard Drinks/WeekCommentsNot Currently0 (1 standard drink = 0.6 oz pure alcohol)ChildcareAnswerDate UxhwzkffWuhadkplrXwcycbh30/31/2019Employment AnswerDate WmslkuqwGflqjlqpunGbmpjhe55/31/2019Hunger ScreeningAnswerDate RecordedWithin the past 12 months we worried whether our food would run out before we got money to buy more.Never True01/01/2025Within the past 12 months the food we bought just didn't last and we didn't have money to get more.Never True01/01/2025Purpose - LifeAnswerDate RecordedPurpose and direction in life Tovuhas82/11/2021Estimated Date of MhiyzklpWjqzdfpdRzm98/05/2026Based on last menstrual period of 07/28/2024Sex and Gender InformationValueDate Recorded Sex Assigned at BirthNot on fileLegal EvfYuqwgv78/31/2019 12:25 PM EDTGender IdentityNot on fileSexual OrientationNot on file Last Filed Vital Signs Vital SignReadingTime TakenCommentsBlood Xdwunabe847/801 1:44 PM EDT Pzdpq205802/16/2025 1:44 PM EDTTemperature--Respiratory Ipbp4483 1:44 PM EDTOxygen Saturation--Inhaled Oxygen Concentration--Djxkqo17.8 kg (209 lb) 02/16/2025 1:44 PM KFUWziult854.6 cm (5' 6 )02/16/2025 1:44 PM EDTBody Mass Index33.7302/16/2025 1:44 PM EDT Plan of Treatment DateTypeDepartmentCare Team (Latest Contact Info)Briklgyqeww97/11/2025 8:00 AM ESTTelemedicine Maternal- Medicine at [address] [address] Sana Palma MD [address] [place] [address] 03/17/2025 8:30 AM ESTTelemedicine [facility] Department of [address] [address] Sam Callahan MD MPH [address] [address] Health MaintenanceDue DateLast DoneCommentsDepression Exhxsekar68/24/1998Adult BMI Follow Up Plan10/22/2003DTaP,Tdap and Td Vaccines (2 - Td or Tdap)07/03/2024 07/03/2014Influenza Xrewsxu8512/29/2024Pap Smear51SV ( or age 60+ yrs) (1 - Risk 1-dose series)03/09/2025dult BMI Screening Tobacco Bzhibpqkr90 Medical Devices Not on file Procedures Procedure NamePriorityDate/TimeAssociated DiagnosisCommentsEXTERNAL LAB ORDERS / ZARAKLROziomyx27/23/2025 3:15 PM EDTEXTERNAL LAB ORDERS / RESULTSRoutine 02/19/2025 3:13 PM EDTEXTERNAL LAB ORDERS / BAKZTPONgassiy79/22/2025 1:58 PM EDT US MFM OB FOLLOW-UP, 1 NYJHMDomfjjy28/09/2025 2:10 PM EDT Multigravida of advanced maternal age in second trimester Antiphospholipid syndrome complicating , antepartum Gestational diabetes mellitus (GDM) in second trimester controlled on oral hypoglycemic drug Insulin controlled gestational diabetes mellitus (GDM) in second trimester AMA (advanced maternal age) multigravida 35+, second trimester Hypothyroidism, unspecified type US [facility] COMPREHENSIVE ANATOMIC DCBGHCLxzzlci76/04/2025 2:24 PM EDT Screening, , for anatomic survey Multigravida of advanced maternal age in second trimester from Last 3 Months Results * External Lab Orders / Results (02/19/2025 3:15 PM EDT) Only the most recent of3 resultswithin the time period is included. Narrative Authorizing ProviderResult TypeResult StatusNot In System Ref ProvLAB ORDERABLES Final ResultPerforming OrganizationAddressCity/State/ZIP CodePhone Number MANUALLY TRANSCRIBED RESULTS * US [facility] OB FOLLOW-UP, 1 FETUS (02/05/2025 2:10 PM EDT) Only the most recent of2 resultswithin the time period is included. Anatomical RegionLateralityModalityOB-GYNUltrasoundSpecimen (Source)Anatomical Location / LateralityCollection Method / VolumeCollection TimeReceived Time 02/05/2025 1:21 PM EDT Narrative 02/06/2025 5:22 PM EDT NAME: ??JUSTICE LEUNG : 1985 SEX: F Accession Number: [id number] ORDERING PHYSICIAN: MYA MASSEY REFERRING PHYSICIAN: MYA MASSEY Coding Procedures ? 61731: Ultrasound, uterus, real time with image documentation, follow up,transabdominal ? approach per fetus ? 60726: Echocardiography, , cardiovascular system, real time with image documentation (2D), with or ? without M-mode recording; follow-up or repeat study Indication Screening for follow-up survey, Screening for congenital cardiac abnormality , Gestational diabetes, AMA- Supervision of elderly , Supervision of high risk -(MOB son - hypospadia, MOB -son - laryngomalacia ), Obesity in , Hypothyroidism. History OB History ? 7. Para 3 ? [id number] Current Cell free DNA ?Low Risk analysis [...] (oz) ? 4 oz EFW by: ?Hadlock (WGS-MY-WX-FL) Extended Tibia ??46.0 mm 28w 0d 68% [...] Heart/Thorax: 4-chamber view. RVOT view. 3-vessel view. 6-rgiemw-npxgztl view. Great vessels. ? Right lung. Left [...] previously RVOT view ?normal 3-vessel view ??normal 1-vjejkr-jbjfqgv view ??normal Aortic arch view ? normal [...] MVP measures 6.7 cm. Recommendations Please see [facility] recommendations from prior clinical and/or [...] LEUNG : 1985 SEX: F Accession Number: [id number] ORDERING PHYSICIAN: MYA MASSEY REFERRING PHYSICIAN: MYA MASSEY Coding Procedures 92812: Ultrasound, uterus, real time with image documentation, follow up, transabdominal approach per fetus 87952: Echocardiography, , cardiovascular system, real timewith image documentation (2D), with or without M-mode recording; follow-up or repeat study Indication Screening for follow-up survey, Screening for congenital cardiacabnormality , Gestational diabetes, AMA- Supervision of elderly , Supervision of high risk -(MOB son - hypospadia, MOB -son - laryngomalacia ), Obesity in , Hypothyroidism. History OB History 7. Para 3 [id number] Current Cell free DNA Low Risk analysis [...] EFW (oz) 4 oz EFW by: Hadlock (ONG-QJ-GY-FL) Extended Tibia 46.0 mm 28w 0d 68% [...] Heart/Thorax: 4-chamber view. RVOT view. 3-vessel view. 3-onofzc-vdlrqtoseuz. Great vessels. Right lung. Left lung. Diaphragm. [...] previously RVOT view normal 3-vessel view normal 8-wlkmff-ryatbdb view normal Aortic arch view normal Ductal [...] necessary. Authorizing ProviderResult TypeResult StatusCorey R Montez [facility] [place] ORDER[facility] Final Result from Last 3 Months Insurance Care Teams Team MemberRelationshipSpecialtyStart DateEnd Date Evans Casas DO PCP - GeneralFamily Medicine07/07/19
--- OUTSIDE RECORDS SUMMARY | 2025-03-02 18:17 | XMS_ITS | Encounter Summary ---
Author Organization [facility] Address [address] [facility] [place] [address] Care Team Providers Care Skin Drier Name Role Phone Evans Casas MD Primary Care Provider [phone] Encounter Details DateTypeDepartmentCare Team (Latest Contact Info)Hkpgjasjwyu40/27/2025amboo flowsheet [facility] [address] [place] [address] Wilton Herrmann DO [address] [place], [facility] Social History Tobacco UseTypesPacks/DayYears UsedDateSmoking Tobacco: NeverSmokeless Tobacco: NeverAlcohol UseStandard Drinks/WeekCommentsNever0 (1 standard drink = 0.6 oz pure alcohol)PHQ-2AnswerDate RecordedPatient Health Questionnaire-2 Score0 01/06/2025Estimated Date of NtnmahshBzjvsirxPpb04/05/2026ased on last menstrual period of 07/28/2024Sex and Gender InformationValueDate RecordedSex Assigned at BirthNot on fileLegal UbfFclylb61/15/2023 11:19 PM EDTGender IdentityNot on fileSexual OrientationNot on filedocumented as of this encounter Plan of Treatment DateTypeDepartmentCare Team (Latest Contact Info)Cmwrsfpyhfd98/11/2025 9:50 AM ESTRoutine [facility] [address] [place] [address] Wilton Herrmann, [address] [place] [address] documented as of this encounter Visit Diagnoses Not on filedocumented in this encounter Care Teams Team MemberRelationshipSpecialtyStart DateEnd Date Evans Casas MD [address] [place] [address] PCP - GeneralFamily Medicine11/07/23documented as of this encounter
--- OUTSIDE RECORDS SUMMARY | 2025-03-02 18:17 | XMS_ITS | Encounter Summary ---
Author Organization [facility] tem Address [facility] [address] [place] [address] Care Team Providers Care Manager Customer Service Name Role Phone Augusto Evans Tony DO Primary Care Provider [phone] Encounter Details DateTypeDepartmentCare Team (Latest Contact Info)Wnmupgpnshs90/23/2025Orders Only [facility], A Department of [address] [address] Ref Prov, [place] [address] Social History Tobacco UseTypesPacks/DayYears UsedDateSmoking Tobacco: NeverSmokeless Tobacco: NeverAlcohol UseStandard Drinks/WeekCommentsNot Currently0 (1 standard drink = 0.6 oz pure alcohol)ChildcareAnswerDate LupdspfnTddsodmzbObzvmuo89/31/2019 EmploymentAnswerDate TziermqqPtwtorlogtRgawkof46/31/2019Hunger ScreeningAnswer Date RecordedWithin the past 12 months we worried whether our food would run out before we got money to buy more.Never True01/01/2025Within the past 12 months the food we bought just didn't last and we didn't have money to get more.Never True01/01/2025Purpose - LifeAnswerDate RecordedPurpose and direction in life Nshjaay64/11/2021Estimated Date of UaapbtdpFopxmahmOzq62/05/2026Based on last menstrual period of 07/28/2024Sex and Gender InformationValueDate Recorded Sex Assigned at BirthNot on fileLegal JrfYzaedx90/31/2019 12:25 PM EDTGender IdentityNot on fileSexual OrientationNot on filedocumented as of this encounter Plan of Treatment DateTypeDepartmentCare Team (Latest Contact Info)Zfhuctldnae37/11/2025 8:00 AM ESTTelemedicine Maternal- Medicine at [facility] [address] [place] [address] Sana Palma MD [address] [place] [address] 03/17/2025 8:30 AM ESTTelemedicine [facility], [facility] Department of [address] [address] Sam Callahan MD [address] [address] documented as of this encounter Procedures Procedure NamePriorityDate/TimeAssociated DiagnosisCommentsEXTERNAL LAB ORDERS / WDCAZMJRekfihn24/23/2025 3:15 PM EDTEXTERNAL LAB ORDERS / RESULTSRoutine [...]
--- OUTSIDE RECORDS SUMMARY | 2025-03-02 18:17 | XMS_ITS | Encounter Summary ---
Author Organization [facility] Address [address] [facility] [place] [address] Care Team Providers Care Award Machine Operator Name Role Phone Evans Casas MD Primary Care Provider [phone] Encounter Details DateTypeDepartmentCare Team (Latest Contact Info)Vbecwqzkmxf33/24/2025linisync Result Encounter [facility] External Department Unsolicited Mya Herrmann DO [address] [place] [address] Social History Tobacco UseTypesPacks/DayYears UsedDateSmoking Tobacco: NeverSmokeless Tobacco: NeverAlcohol UseStandard Drinks/WeekCommentsNever0 (1 standard drink = 0.6 oz pure alcohol)PHQ-2AnswerDate RecordedPatient Health Questionnaire-2 Score0 01/06/2025Estimated Date of DidzlhgoIcghzthfVoc42/05/2026ased on last menstrual period of 07/28/2024Sex and Gender InformationValueDate RecordedSex Assigned at BirthNot on fileLegal JarYzzvdw73/15/2023 11:19 PM EDTGender IdentityNot on fileSexual OrientationNot on filedocumented as of this encounter Plan of Treatment DateTypeDepartmentCare Team (Latest Contact Info)Olzpsldxktn30/11/2025 9:50 AM ESTRoutine [facility] [address] [place] [address] Mya Herrmann DO [address] [place] [address] documented as of this encounter Procedures Procedure NamePriorityDate/TimeAssociated DiagnosisCommentsUS OB GROWTH 02/20/2025 8:37 AM EDT documented in this encounter Results * US OB GROWTH (02/20/2025 8:37 AM EDT)Anatomical RegionLateralityModalityOther Specimen (Source)Anatomical Location / LateralityCollection Method / Volume Collection TimeReceived Time02/20/2025 8:37 AM EDT Narrative 02/20/2025 8:40 AM EDT [facility] ?[address] ? [place] [address] ? Ultrasound Report ? Signed ? Patient: JUSTICE,MADHU S ?MR#: [id number] ?? : 1985 ?Acct:[id number] ?? Age/Sex: 39 / F ?ADM Date: 02/19/25 ?? Loc: US ? Attending Dr: Mya Herrmann D.O. ? Ordering Physician: Mya Herrmann D.O. ?? Date of Service: 02/19/25 ?? Procedure(s): US OB growth ?? Accession Number(s): [id number] ? cc: Mya Herrmann D.O.; Physician,Non-Staff M.D. ? [facility] ? [address] [place] [address] ? [place] [address] ? Patient Name: ?? MADHU RENDON ? MRN: [facility]:[id number] ? date: 1985 ?Sex: F ?? Assigned Patient Location: LAB ?? Current Patient Location: ? Accession/Order Number: [id number] ?? Exam Date: 02/19/2025 ??19:47 ?Report Date: [...] Dictation Location: RADIO-PC-02 ? Electronically authenticated by: [id number] ??Y ?? Date: 02/20/2025 ??08:37 ? Dictated By: ?Pamela Pisano M.D. ? Signed By: ?02/20/25 0840 ? DD/ 0837 ? TD/TT: ? Restaurant Assistant: Procedure Note Radiology, Radiologist, - 02/20/2025 [place] [address] Ultrasound Report Signed Patient: MADHU RENDON [facility]#: [id number] : 1985Acct:[id number] Age/Sex: 39 / FADM Date: 02/19/25 Loc: US Attending Dr: Mya Herrmann D.O. Ordering Physician: Mya Herrmann D.O. Date of Service: 02/19/25 Procedure(s): US OB growth Accession Number(s): [id number] cc: Mya Herrmann D.O.; Physician,Non-Staff MGiovanni [place] [id number] Patient Name: MADHU RENDON MRN: [facility]:[id number] date: 1985 Sex: F Assigned Patient Location: LAB Current Patient Location: Accession/Order Number: [id number] Exam Date: 02/19/2025 19:47 Report Date: 02/20/2025 [...] Pisano M.D. 02/20/2025 8:37 AM Dictation Location: [place] [address] Electronically authenticated by: [id number] Y Date: 508:37 Dictated By: Pamela Pisano M.D. Signed By:02/20/25839 DD/ 6 TD/TT: Restaurant Assistant: Authorizing ProviderResult TypeResult StatusCorey Montez DOCLINISYNC IMAGINGFinal Result documented in this encounter Visit Diagnoses Not on filedocumented in this encounter Care Teams Team MemberRelationshipSpecialtyStart DateEnd Date Evans Casas MD [address] [facility] [place] [address] PCP - GeneralFamily Medicine11/07/23documented as of this encounter
--- OUTSIDE RECORDS SUMMARY | 2025-03-02 18:17 | XMS_ITS | Encounter Summary ---
Author Organization [facility] Address [address] [facility] [place] [address] Care Team Providers Care Gyroscope Technician Name Role Phone Evans Casas MD Primary Care Provider [phone] Encounter Details DateTypeDepartmentCare Team (Latest Contact Info)Fojeehpzmoq43/24/2025linisync Result Encounter [facility] External Department Unsolicited Mya Herrmann DO [address] [place] [address] Social History Tobacco UseTypesPacks/DayYears UsedDateSmoking Tobacco: NeverSmokeless Tobacco: NeverAlcohol UseStandard Drinks/WeekCommentsNever0 (1 standard drink = 0.6 oz pure alcohol)PHQ-2AnswerDate RecordedPatient Health Questionnaire-2 Score0 01/06/2025Estimated Date of MseydxcjBpjajlunAip50/05/2026ased on last menstrual period of 07/28/2024Sex and Gender InformationValueDate RecordedSex Assigned at BirthNot on fileLegal VmlXuqqyz30/15/2023 11:19 PM EDTGender IdentityNot on fileSexual OrientationNot on filedocumented as of this encounter Plan of Treatment DateTypeDepartmentCare Team (Latest Contact Info)Lfpgokqpgos60/11/2025 9:50 AM ESTRoutine [facility] [place] [facility] [address] [place] [phone] May Herrmann DO [address] [place] [address] documented as of this encounter Procedures Procedure NamePriorityDate/TimeAssociated DiagnosisCommentsUS OB BPP W NON-QORYEB0602/20/2025 8:37 AM EDT documented in this encounter Results * US OB BPP W NON-STRESS (02/20/2025 8:37 AM EDT)Anatomical Region LateralityModalityOtherSpecimen (Source)Anatomical Location / Laterality Collection Method / VolumeCollection TimeReceived Time02/20/2025 8:37 AM EDT Narrative 02/20/2025 8:40 AM EDT [facility] ?[address] ? [place], [place] [address] ? Ultrasound Report ? Signed ? Patient: SANNA RENDON S ?MR#: [id number] ?? : 1985 ?Acct:[id number] ?? Age/Sex: 39 / F ?ADM Date: 02/19/25 ?? Loc: US ? Attending Dr: Mya Herrmann D.O. ? Ordering Physician: Mya Herrmann D.O. ?? Date of Service: 02/19/25 ?? Procedure(s): US OB BPP w non-stress ?? Accession Number(s): [id number] ? cc: Mya Herrmann D.O.; Physician,Non-Staff M.D. ? [facility] ? [address] [facility] ? [place] [address] ? Patient Name: ?? SANNA RENDON ? MRN: [facility]:[id number] ? date: 1985 ?Sex: F ?? Assigned Patient Location: LAB ?? Current Patient Location: ? Accession/Order Number: [id number] ?? Exam Date: 02/19/2025 ??19:47 ?Report Date: [...] M.D. ??02/20/2025 8:37 AM ? Dictation Location: [facility]--02 ? Electronically authenticated by: [id number] ??Y ?? Date: 02/20/2025 ??08:37 ? Dictated By: ?Pamela Pisano M.D. ? Signed By: ?02/20/25 0840 ? DD/ 0837 ? TD/TT: ? Bay Stocker: Procedure Note Radiology, Radiologist, MD - 02/20/2025 [place] [address] Ultrasound Report Signed Patient: SANNA RENDON [facility]#: [id number] : 1985Acct:[id number] Age/Sex: 39 / FADM Date: 02/19/25 Loc: US Attending Dr: Mya Herrmann D.O. Ordering Physician: Mya Herrmann D.O. Date of Service: 02/19/25 Procedure(s): US OB BPP w non-stress Accession Number(s): [id number] cc: Mya Herrmann D.O.; Physician,Non-Staff [place] [address] Patient Name: SANNA RENDON MRN: [facility]:[id number] date: 1985 Sex: F Assigned Patient Location: LAB Current Patient Location: Accession/Order Number: [id number] Exam Date: 02/19/2025 19:47 Report Date: 02/20/2025 [...] Pisano M.D. 02/20/2025 8:37 AM Dictation Location: [place] [address] Electronically authenticated by: [id number] Y Date: 508:37 Dictated By: Pamela Pisano M.D. Signed By:02/20/25839 DD/ 6 TD/TT: Bay Stocker: Authorizing ProviderResult TypeResult StatusCorey Montez DOCLINISYNC IMAGINGFinal Result documented in this encounter Visit Diagnoses Not on filedocumented in this encounter Care Teams Team MemberRelationshipSpecialtyStart DateEnd Date Evans Casas MD [address] [place] [address] PCP - GeneralFamily Medicine11/07/23documented as of this encounter
--- OUTSIDE RECORDS SUMMARY | 2025-03-02 18:17 | XMS_ITS | Encounter Summary ---
Author Organization [facility] Address [address] [facility] [place] [address] Care Team Providers Care Ocean Transportation Intermediary Name Role Phone Penelope Casas MD Primary Care Provider [phone] Encounter Details DateTypeDepartmentCare Team (Latest Contact Info)Ikyhkrwztvt26/11/2025linisync Result Encounter [facility] External Department Unsolicited Mya Herrmann, DO [address] [place], [place] [id number] Social History Tobacco UseTypesPacks/DayYears UsedDateSmoking Tobacco: NeverSmokeless Tobacco: NeverAlcohol UseStandard Drinks/WeekCommentsNever0 (1 standard drink = 0.6 oz pure alcohol)PHQ-2AnswerDate RecordedPatient Health Questionnaire-2 Score0 01/06/2025CommentsYesSex and Gender InformationValueDate RecordedSex Assigned at BirthNot on fileLegal DvcRkxvaz96/15/2023 11:19 PM EDTGender IdentityNot on fileSexual OrientationNot on filedocumented as of this encounter Functional Status * Over the past 2 weeks, how often have you been bothered by any of the following problems?QuestionAnswerDate of AssessmentAuthorLittle interest or pleasure in doing thingsNot at all01/06/2025 9:35 AM Petra Flores LPN Feeling down, depressed, or hopelessNot at all01/06/2025 9:35 AM Petra Flores LPNPatient Health Questionnaire-2 Qdius524 9:35 AM Petra Flores LPN documented as of this encounter Plan of Treatment DateTypeDepartmentCare Team (Latest Contact Info)Osxrpxkdbeh86/11/2025 9:50 AM ESTRoutine [facility] [facility] [address] [facility] [facility] [place] [address] Mya Herrmann, DO [address] [place] [address] documented as of this encounter Procedures Procedure NamePriorityDate/TimeAssociated DiagnosisCommentsUS OB LIMITED 1+ FWPHEAJ5705/10/2024 9:26 AM EST SRMCOH PROTHROMBIN TIME INR W/O KFVTGaooola59/11/2025 8:44 AM EST MHPT XLJUVAJQPLTwomsih53/11/2025 8:44 AM EST CCF XKCJVsanqtu02/11/2025 8:44 AM EST documented in this encounter Results * US OB limited 1+ fetuses (05/10/2024 9:26 AM EST)Anatomical RegionLaterality ModalityBodyUltrasoundSpecimen (Source)Anatomical Location / Laterality Collection Method / VolumeCollection TimeReceived Time05/10/2024 9:26 AM EST Narrative 05/10/2024 9:29 AM EST The [facility] ?[address] ? [place] [address] ? Ultrasound Report ? Signed ? Patient: MADHU RENDON ?MR#: [id number] ?? : 1985 ?Acct:[id number] ?? Age/Sex: 38 / F ?ADM Date: ?? Loc: FBC ??258-1 ? Attending Dr: Mya Herrmann D.O. ? Ordering Physician: Mya Herrmann D.O. ?? Date of Service: 05/10/24 ?? Procedure(s): US OB limited ?? Accession Number(s): [id number] ? cc: Mya Herrmann D.O.; PENELOPE CASAS ? The [facility] ? [address] ? [place] [address] ? Patient Name: ?? MADHU RENDON ? MRN: [facility]:[id number] ? date: 1985 ?Sex: F ?? Assigned Patient Location: [facility] ?? Current Patient Location: US ?? Accession/Order Number: [id number] ?? Exam Date: 05/10/2024 ??08:30 ?Report Date: [...] ?05/10/2429 ? DD/ 5 ? TD/TT: ? Doctor Podiatric Medicine: Procedure Note Radiology, Radiologist, - 05/10/2024 [place] [address] Ultrasound Report Signed Patient: MADHU RENDON SMR#: [id number] : 1985Acct:[id number] Age/Sex: 38 / FADM Date: Loc: [facility] 258-[address]: Mya Herrmann D.O. Ordering Physician: Mya Herrmann D.O. Date of Service: 05/10/24 Procedure(s): US OB limited Accession Number(s): [id number] cc: Mya Herrmann D.O.; PENELOPE CASAS [address] [address] Patient Name: MADHU RENDON MRN: [id number] date: 1985 Sex: F Assigned Patient Location: [facility] Current Patient Location: Accession/Order Number: [id number] Exam Date: 05/10/2024 08:30 Report Date: 05/10/2024 [...] Riley M.D. Signed By:05/10/24928 DD/ 5 TD/TT: Doctor Podiatric Medicine: Authorizing ProviderResult TypeResult StatusCorecarmen Herrmann DOIMG OB US PROCEDURES Final Result * MHPT FIBRINOGEN (05/10/2024 8:44 AM EST)ComponentValueRef RangeTest Method Analysis TimePerformed AtPathologist [id number] - 400 mg/dLTBH Specimen (Source)Anatomical Location / [...] Date Penelope Casas MD [address] [place] [address] PCP - GeneralFamily Medicine11/07/23documented as of this encounter
--- OUTSIDE RECORDS SUMMARY | 2025-03-02 18:17 | XMS_ITS | Clinical Summary ---
Author Organization [facility] Address [address] [facility], [address] [place] [address] Care Team Providers Care Regional Vice President Life Sales Name Role Phone Evans Casas DO Primary Care Provider [phone] Allergies Active AllergyReactionsCriticalityNoted DateCommentsCiprofloxacinOther (See Comments)06/19/2019Ciprofloxacin-Fluocinolone PfOther [...] elevated without history of HTN12/11/2023ry mouth 12/11/2023Environmental bmumjziiw73/13/2024H/O: suhemmggacinoy38/13/2024History of chsiam9312/11/2023History of gestational wrzmpoqp13/13/2024History of kidney uflfab4612/11/2023Hx of iron deficiency aputpu1812/11/2023Immunization not carried out because of patient zmohoxbf96/13/2024Morbid eadyrtf3012/11/2023Non-smoker 12/11/2023OSA (obstructive sleep apnea)12/11/2023ight otitis taannht7312/11/2023 Abdominal pain06/12/2023cute bronchitis due to yscrmqcpd21/13/2024nxiety 06/12/2023ysfunction of eustachian tube06/12/20235847Rdidsnn16/13/2024Hematochezia 06/12/2023History of severe acute respiratory syndrome coronavirus 2 (SARS-CoV-2) vxocvwr9606/12/20235947Dnveclclpqhs03/13/2024Inhalation bcbtqu3706/12/2023 ipbbpus8906/12/2023sychogenic bwoofcglnaswlqai93/13/2024Suspected severe acute respiratory syndrome coronavirus 2 (SARS-CoV-2) yoqeclmrm44/13/2024 Primary hypercoagulable state08/01/2022estational diabetes mellitus in , unspecified vdpwmnh2001/26/2022Genitourinary curirtfe57/22/2022Muscle kpwkazebrwtix49/22/2022TIA (transient ischemic attack)06/16/2020erebrovascular accident (CVA) due to stenosis of middle cerebral aibeqs9302/22/2020Anticoagulant long-term use02/22/2020Acute posthemorrhagic pwounv8901/16/202039 weeks gestation of ubygukzut43/18/2020Anemia complicating eyhbxhonyj52/18/2020Endocrine, nutritional and metabolic diseases complicating /18/2020First degree perineal laceration during vbzedyxo33/18/2020Other immediate nbirnhawvx43/18/2020Personal history of transient ischemic attack (TIA), and cerebral infarction without residual rsnisvdo30/18/2020Personal history of urinary (tract) sdxsjsaecr80/18/2020Single live birth01/15/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01/08/202038 weeks gestation of wtgyiexot63/09/2020Pruritus, upvkoiikrrc92/04/202037 weeks gestation of jzvfadurb40/04/442210 weeks gestation of jdakbnsap21/01/2020Other speech and language deficits following cerebral omxerlivja49/01/2020Other diseases of the blood and blood-forming organs and certain disorders involving the immune mech anism complicating rdvmzmjpil75/25/436320 weeks gestation of /24/2020 34 weeks gestation of wogjonpyz34/18/891853 weeks gestation of 12/10/201932 weeks gestation of rhcfcqhyg32/31/2020Thrombocytopenia, unspecified 11/20/2019Other general symptoms and signs10/28/2019Urinary tract infection, site not /18/3931Mgfbwivanwuf08/28/2020SVT (supraventricular tachycardia)08/26/2019Antiphospholipid antibody ezlowlpy16/09/2020Other bacterial infections of unspecified site06/27/2019Less than 8 weeks gestation of zqcyjlrqh62/06/2020Encounter for supervision of normal , unspecified, first edsnfwawi72/30/7493Pkjlzvthrili92/17/2020Cerebral infarction, unspecified 05/16/2019Paresthesia of skin05/16/2019Deficiency of other specified B group vzdcgapp93/17/2020Hypothyroidism, drymjphhyxp20/17/2020Unspecified condition associated with female genital organs and menstrual cycle05/09/2019Vomiting of , dhneovounud79/06/2020Other specified noninflammatory disorders of lpvsru2102/21/2019Frequency of txyupkneckh78/23/2019Unspecified ovarian cyst, right side02/06/2019Coagulation defect, ebfagipgive48/09/2019Cervicalgia 02/05/2019Long term (current) use of 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/wgfrmswzbawjq94/09/2019 Dizziness and tbrcunypv41/09/2019Other acute postprocedural pain02/03/2019Pelvic and perineal pain02/01/2019Syncope and upbzjvsk36/04/2019Anticardiolipin antibody rwuumcmc87/29/2018Migraine without aura and without status migrainosus, not mtjwurljhhs73/16/2018Antiphospholipid antibody wnalsytl22/14/2018Pain in joint12/29/20163102Adfmcbc23/01/2017Idiopathic progressive gxyuwblqab85/01/2017 Resolved Problems ProblemNoted DateDiagnosed DateResolved FzffXvvlb76/ Encounters DateTypeDepartmentCare HpxdLqjvxximsyn59/24/2025 2:30 PM EDTOffice Visit [facility] [address] [place] [address] [place] [address] Peng Osorio MD Antiphospholipid antibody syndrome (Primary [...] InformationValueDate RecordedSex Assigned at BirthNot on fileLegal ZykIgaglz52/14/2017 2:04 PM EDT Gender IdentityNot on fileSexual OrientationNot on file Last Filed Vital Signs Vital SignReadingTime TakenCommentsBlood Ckysgcnt228/6409 2:40 PM EDT Qkirb193901/21/2025 2:40 PM MYSTvwaovmskcj75.2 ??C (97.2 ??F)02/09/2022 11:22 AM EDTRespiratory Iuvu0237 11:22 AM EDTOxygen Ywjqxalrwk88%10/04/2020 2:01 PM EDTInhaled Oxygen Concentration--Ejqwtr76.8 kg (209 lb)01/21/2025 2:40 PM EDT Wvmujp475.6 cm (5' 6 )02/09/2022 11:22 AM EDTBody Mass Index33.7302/09/2022 11:22 AM EDT Plan of Treatment DateTypeDepartmentCare Team (Latest Contact Info)Yohbqjruugq71/25/2026 1:45 PM EDTOffice Visit [facility] [address] [place] [address] [place] [address] Peng Osorio MD [address] [place] [address] [place] [address] 6 [address] FUPHealth MaintenanceDue DateLast DoneCommentsDepression Hmyywc4510/21/1997 Varicella vaccine (1 of 2 - 13+ 2-dose series)1998Hepatitis C screen 10/22/2003Hepatitis B vaccine (1 of 3 - 19+ 3-dose series)2004Pap smear 2006Cervical cancer dupkol9610/22/2015HPV (without or with Pap)10/22/2015 DTaP/Tdap/Td vaccine (2 [...] Procedure NamePriorityDate/TimeAssociated DiagnosisCommentsHIV-1,-2 W/REFLEX TO HIV-1 WESTERN MMBNWxwdumr19/01/2017 11:49 AM EDT Arthralgia, unspecified joint Fatigue, unspecified type Sensation disorder from Last 3 Months or Most Recently Relevant to Health Maintenance Results * Hiv-1,-2 W/Reflex To Hiv-1 Western Blot (12/29/2016 11:49 AM EDT)Component ValueRef RangeTest MethodAnalysis TimePerformed AtPathologist Signature HIV-1/HIV-2 KaFyaaxyqjGefqcusa04/03/2017 12:[address] [facility] Comment: Based on the non-reactive anti-HIV (BRENDEN) screen, the HIV Western blot is not indicated and therefore not performed. INTERPRETIVE INFORMATION: HIV-1,-2 w/Reflex to HIV-1 Western Blot This assay should not be used for blood donor screening, associated re-entry protocols, or for screening Human Cells, Tissues and Cellular and Tissue-Based Products (HCT/P). Performed by [employer], [facility] [place] [address] www.[employer], Zhang Bledsoe MD - Lab. Director Specimen (Source)Anatomical Location / LateralityCollection Method / Volume Collection TimeReceived TimeBLOOD SPECIMEN / Irpyyhk6512/29/2016 11:49 AM EDT 12/29/2016 1:50 PM EDT Narrative Authorizing ProviderResult TypeResult StatusRitiki Monroe MDHEMATOLOGY ORDERABLES Final ResultPerforming OrganizationAddressCity/State/ZIP CodePhone Number [facility] [address] [place] [address], [facility] [phone] from Last 3 Months or Most Recently Relevant to Health Maintenance Insurance Care Teams Team MemberRelationshipSpecialtyStart DateEnd Date Evans Casas DO [address] [place] [address] PCP - GeneralFamily Medicine10/04/20
--- OUTSIDE RECORDS SUMMARY | 2025-03-02 18:17 | XMS_ITS | Encounter Summary ---
Author Organization [facility] Address [id number] [address] [place] [address] Care Team Providers Care Cam Specialist Name Role Phone Augusto Evans Tony DO Primary Care Provider [phone] Encounter Details DateTypeDepartmentCare Team (Latest Contact Info)Rwzuhtuhjmv52/22/2025Orders Only [facility], A Department of [address] [address] Ref Prov, [place] [address] Social History Tobacco UseTypesPacks/DayYears UsedDateSmoking Tobacco: NeverSmokeless Tobacco: NeverAlcohol UseStandard Drinks/WeekCommentsNot Currently0 (1 standard drink = 0.6 oz pure alcohol)ChildcareAnswerDate JoajljxmKnigvopsvTapqhlw56/31/2019 EmploymentAnswerDate VrnakwacZtobkmtixbIoudaon04/31/2019Hunger ScreeningAnswer Date RecordedWithin the past 12 months we worried whether our food would run out before we got money to buy more.Never True01/01/2025Within the past 12 months the food we bought just didn't last and we didn't have money to get more.Never True01/01/2025Purpose - LifeAnswerDate RecordedPurpose and direction in life Tssbjbe88/11/2021Estimated Date of GwaaxxnoWfqomhopTsk75/05/2026Based on last menstrual period of 07/28/2024Sex and Gender InformationValueDate Recorded Sex Assigned at BirthNot on fileLegal ZuhVxeehb07/31/2019 12:25 PM EDTGender IdentityNot on fileSexual OrientationNot on filedocumented as of this encounter Plan of Treatment DateTypeDepartmentCare Team (Latest Contact Info)Kyoxmazoeef88/11/2025 8:00 AM ESTTelemedicine [facility]aternal- [facility] at [place] [address] [place] [address] Sana Palma MD [address] [place] [address] 03/17/2025 8:30 AM ESTTelemedicine [facility], A Department of [address] [address] Sam Callahan MD [address] [address] documented as of this encounter Procedures Procedure NamePriorityDate/TimeAssociated DiagnosisCommentsEXTERNAL LAB ORDERS / UMKAEIMGfxxyjm06/22/2025 1:58 PM EDTdocumented in this encounter Results [...]
--- OUTSIDE RECORDS SUMMARY | 2025-03-02 18:17 | XMS_ITS | Clinical Summary ---
Author Organization [facility] Address [address] [place] [address] Care Team Providers Care Bag Presser Name Role Phone Jonny Wilcox MD Unavailable [phone] Cosmo Elliott MD Unavailable [phone] Davida Restrepo RN Unavailable [phone] Evans Casas DO Primary Care Provider [phone] Allergies Active AllergyReactionsCriticalityNoted DateCommentsCiprofloxacinOther: See Comments,Ohfdzjt6105/19/2019 Dizziness, weakness sweating Ciprofloxacin-FluocinoloneOther: See Padzmkpu07/20/2020 Dizziness, weakness sweating LactalbuminUnknown,GI QhsfsZvm09/26/2018 Crampy and gassy LactoseGI Upset09/10/2017 Diarrhea MilkOther: See IsuueqycZoi95/26/2018 Crampy and gassy Diarrhea Other reaction(s): GI Upset Crampy and gassy Milk Containing Products (Dairy)Other: See UbiqlpoxFvc38/26/2018 Crampy and gassy Diarrhea Other reaction(s): GI Upset Crampy and gassy Seasonal AllergiesGI Upset,Other: See Atwiegnc10/06/2021 Medications MedicationSigDispense QuantityRefillsLast FilledStart DateEnd DateStatus multivitamin [...] SYRINGE SUBCUTANEOUSLY EVERY 24 HOURS 90 mL 5Active Additional Information Patient taking differently: EVERY 12 HOURS, INJECT 1 SYRINGE SUBCUTANEOUSLY EVERY 24 HOURS, Reported on 03/02/2025 levothyroxine (SYNTHROID) 25 mcg tablet TAKE 1 TABLET BY MOUTH IN THE MORNING BEFORE MEAL(S)Active Active Problems ProblemNoted DateDiagnosed DateAntiphospholipid antibody zgcwlakk39/29/2025 Vitamin D qtjublsqaj59/29/2025Primary hypercoagulable state08/01/2022VA, old, speech/language hzsviwg6708/01/2022Iron deficiency anemia secondary to blood loss (chronic)03/27/2022Iron deficiency anemia of cotsgbkmi72/28/2022nti-cardiolipin antibody pemrgjcl33/29/2018Migraine with aura and without status migrainosus, not vlfzfzuqceg50/16/2018Antiphospholipid antibody xfmnolqc55/14/2018Fatigue 12/29/2016Pain in joint12/29/2016Estimated Date of DeliveryCommentsYes 07/28/2024 Encounters DateTypeDepartmentCare ZnurYiktiikzlij59/03/2025 11:30 AM ESTVisit (SP) Office Hematology/Oncology [address] [place] [address] [place] [address] 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 APRN.WINDOW DECORATOR Antiphospholipid antibody positive (Primary Dx); Iron deficiency anemia secondary to blood loss (chronic); Vitamin D deficiency; Primary hypercoagulable state (HCC); CVA, old, speech/language owakquq5503/02/20259151Bqifjh65/02/2025Telephone Hematology/Oncology [address] [place] [address] [place] [address] Rachael Johnson RN Ufyshzj5401/26/2025Telephone Hematology/Oncology [address] [place] [address] [place] [address] Rachael Johnson RN 12/23/2024 11:30 AM EDTVisit (SP) Office Hematology/Oncology [address] [place] [address] [place] [address] 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, VICTOR HUGO.WINDOW DECORATOR Antiphospholipid antibody positive (Primary Dx); Iron deficiency [...] drink = 0.6 oz pure alcohol)PHQ-2AnswerDate RecordedPHQ-2 aqmcd8324Area Deprivation Index AnswerDate RecordedNational Score (1-100), lower number is lower risk58 09/28/2022State Score (1-10), lower number is lower bvcm1903Data from: https://www.neighborhoodatlas.[facility].edu/. Last address used for z[address]Estimated Date of DeliveryCommentsYes 07/28/2024Sex and Gender InformationValueDate RecordedSex Assigned at BirthNot on fileLegal CymCrqejr79/29/2018 10:06 AM ESTGender IdentityNot on fileSexual OrientationNot on fileOccupationIndustryJob Start DateJob End Datestay at home momNot on fileNot on fileNot on file Last Filed Vital Signs Vital SignReadingTime TakenCommentsBlood Wnomutux643/7911/06/2024 11:56 AM EST Fdlci2102/06/2024 11:56 AM NXZKpivmtflpin68.2 ??C (97.2 ??F)03/02/2025 11:56 AM ESTRespiratory Inyf635805/02/2024 11:56 AM ESTOxygen Glctjwpkqa60%03/02/2025 11:56 AM ESTInhaled Oxygen Concentration--Gjnaeo94.2 kg (214 lb 4.6 oz)03/02/2025 11:56 AM NWRWpjtqg496.7 cm (5' 6.02 )12/23/2024 11:34 AM EDTBody Mass Index34.56 12/23/2024 11:34 AM EDT Plan of Treatment DateTypeDepartmentCare Team (Latest Contact Info)Mhymwrnykpp35/01/2025 8:00 AM ESTOffice [facility] [address] [place] [address] [address] [place], [place] [id number] Return in 4 weeks lab and possible iron03/30/2025 8:20 AM ESTVisit (SP) Office Hematology/Oncology [address] [place] [address] [place] [address] Salvador Dos Santos MD [address] [place] [address] [place] [address] Return in 4 weeks lab and possible iron03/30/2025 8:30 AM [facility] Hematology/Oncology [address] [place] [address] [place] [address] Return in 4 weeks lab and possible ironHealth MaintenanceDue DateLast Done CommentsAnxiety Bxehiedzt18/24/2004Depression Kkwogtkjp53/24/2004HIV Screening 10/22/2003Hepatitis C Cjcwismsq14/24/2004Hepatitis B Vaccine (1 of 3 - 19+ 3- dose series)2004HPV Vaccine (1 - 3-dose SCDM series)2012Cervical Cancer Isruspfsk53/10/2017DTaP,Tdap,Td Vaccine (2 - Td or Tdap) /09/2014Covid-19 Vaccine ( - season)2024Influenza Vaccine (#1)/09/2017 (Patient/Parent/Guardian Counseled and Declines)RSV Vaccine (1 - 1-dose 75+ series)2060 Procedures Procedure NamePriorityDate/TimeAssociated DiagnosisCommentsCOMPREHENSIVE METABOLIC EGOJCBubokxz26/03/2025 11:40 AM EST 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) Vitamin D deficiency Primary hypercoagulable state (HCC) CBC + XJLVEfscyrp42/03/2025 11:40 AM EST 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) Vitamin D deficiency Primary hypercoagulable state (HCC) VITAMIN B12 XXBEYDdrqyuj43/26/2025 11:28 AM EDT Primary hypercoagulable state (HCC) CVA, old, speech/language deficit Cerebral hyponatremia Personal history of TIA (transient ischemic attack) IRON + CORKWnrpjin46/26/2025 11:28 AM EDT Primary hypercoagulable state (HCC) CVA, old, speech/language deficit Cerebral hyponatremia Personal history of TIA (transient ischemic attack) FERRITIN FNLIlbofih38/26/2025 11:28 AM EDT Primary hypercoagulable state (HCC) CVA, old, speech/language deficit Cerebral hyponatremia Personal history of TIA (transient ischemic attack) COMPREHENSIVE METABOLIC FBSCAPwryurm25/26/2025 11:28 AM EDT Primary hypercoagulable state (HCC) CVA, old, speech/language deficit Cerebral hyponatremia Personal history of TIA (transient ischemic attack) CBC + CSFSGmbpood41/26/2025 11:28 AM EDT Primary hypercoagulable state (HCC) CVA, old, speech/language deficit Cerebral hyponatremia Personal history of TIA (transient ischemic attack) from Last 3 Months Results * (ABNORMAL) COMPREHENSIVE METABOLIC PANEL (03/02/2025 11:40 AM EST) Only the most recent of2 resultswithin the time period is included. ComponentValueRef RangeTest MethodAnalysis TimePerformed AtPathologist Signature Protein, Total7.26.3 - 8.0 g/dL03/02/2025 2:01 PM [facility] LABAlbumin4.13.9 - 4.9 g/dL03/02/2025 2:01 PM [facility] LABCalcium, Total10.3(H)8.5 - 10.2 mg/dL03/02/2025 2:01 PM EST [facility] LABBilirubin, Total0.20.2 - 1.3 mg/dL 03/02/2025 2:01 PM [facility] LABAlkaline Phosphatase 6434 - 123 U/L105/02/2024 2:01 PM [facility] SWWOGN48 (L)13 - 35 U/L105/02/2024 2:01 PM [facility] CNQVCV120 - 38 U/L105/02/2024 2:01 PM [facility] DWSTopmxps29(L) 74 - 99 mg/dL03/02/2025 2:01 PM [facility] LABComment: The [place] Diabetes [employer] (ADA) provides guidance for cutoff [...] Standards of Medical Care in Diabetes 2016, [place] [employer]. Diabetes Care. 2016.39(Suppl 1). BUN97 - 21 mg/dL03/02/2025 2:01 PM [facility] LAB Creatinine0.54(L)0.58 - 0.96 mg/dL03/02/2025 2:01 PM [facility] XRODodpkw802(L)136 - 144 mmol/L105/02/2024 2:01 PM [facility] LABPotassium3.93.7 - 5.1 mmol/L105/02/2024 2:01 PM EST [facility] HNWGqvoxswq86(L)98 - 107 mmol/L105/02/2024 2:01 PM [facility] JXPWD146(L)22 - 30 mmol/L105/02/2024 2:01 PM [facility] LABAnion Sva884 - 15 mmol/L105/02/2024 2:01 PM [facility] LABEstimated Glomerular Filtration Iivk590>=60 mL/min/1.73m 03/02/2025 2:01 PM [facility] LABComment:Estimated Glomerular Filtration Rate (eGFR) is [...] VolumeCollection TimeReceived TimeBloodBLOOD SPECIMEN / UnknownVenipuncture / Lhpkmjx8803/02/2025 11:40 AM EST03/02/2025 11:41 AM EST Narrative Authorizing ProviderResult TypeResult StatusHolly Arsh HATHAWAYN.CNPLABORATORY Final ResultPerforming OrganizationAddressCity/State/ZIP CodePhone Number [facility] [address] [place] [address] * (ABNORMAL) COMPLETE BLOOD COUNT AND DIFFERENTIAL (03/02/2025 11:40 AM EST) Only the most recent of2 resultswithin the time period is included. ComponentValueRef RangeTest MethodAnalysis TimePerformed AtPathologist Signature WBC8.643.70 - 11.00 k/uL11/06/2024 11:50 AM ESTNOR[facility]ILL[facility] LABRBC3.71(L)3.90 - 5.20 m/uL03/02/2025 11:50 AM ESTNOR[facility]ILL[facility] OFCTjvifwvfdf91.611.5 - 15.5 g/dL03/02/2025 11:50 AM [facility] OGHKsntamuyzs35.0(L)36.0 - 46.0 %03/02/2025 11:50 AM EST [facility] TQZZUM12.980.0 - 100.0 fL03/02/2025 11:50 AM [facility] NURQSD41.326.0 - 34.0 pg03/02/2025 11:50 AM [facility] AWGKLAQ65.230.5 - 36.0 g/dL03/02/2025 11:50 AM [facility] LABRDW-CV13.311.5 - 15.0 %03/02/2025 11:50 AM [facility] LABPlatelet Eezxb897088 - 400 k/uL 03/02/2025 11:50 AM [facility] LABMPV9.49.0 - 12.7 fL 03/02/2025 11:50 AM [facility] LABNeutrophils %64.5% 03/02/2025 11:50 AM [facility] LABAbs Neut5.571.45 - 7.50 k/uL03/02/2025 11:50 AM [facility] LABLymphocytes %26.7%03/02/2025 11:50 AM [facility] LABAbs Lymph2.31 1.00 - 4.00 k/uL03/02/2025 11:50 AM [facility] Monocytes %7.3%03/02/2025 11:50 AM [facility] LABAbs Mono0.63<0.87 k/uL03/02/2025 11:50 AM [facility] Eosinophils %0.7%03/02/2025 11:50 AM [facility] LABAbs Eosin0.06<0.46 k/uL03/02/2025 11:50 AM [facility] Basophils %0.3%03/02/2025 11:50 AM [facility] LABAbs Baso0.03<0.11 k/uL03/02/2025 11:50 AM [facility] Immature Granulocytes %0.5%03/02/2025 11:50 AM [facility] LABAbs Immature Gran0.04<0.10 k/uL03/02/2025 11:50 AM [facility] LABNRBC0.0/100 WBC03/02/2025 11:50 AM [facility] LABAbsolute nRBC<0.01<0.01 k/uL03/02/2025 11:50 AM EST [facility] LABDiff CmktCflo51/03/2025 11:50 AM EST [facility] LABSpecimen (Source)Anatomical Location / LateralityCollection Method / VolumeCollection TimeReceived TimeBloodBLOOD SPECIMEN / UnknownVenipuncture / Avbbtwr9003/02/2025 11:40 AM EST03/02/2025 11:41 AM EST Narrative Authorizing ProviderResult TypeResult StatusHolly Arsh SHOP ROUTER.CNPLABORATORY Final ResultPerforming OrganizationAddressCity/State/ZIP CodePhone Number [facility] [address] [place] [address] * VITAMIN B12 (12/23/2024 11:28 AM EDT)ComponentValueRef RangeTest Method Analysis TimePerformed AtPathologist SignatureVitamin [id number] - 1,245 pg/mL 12/23/2024 7:00 PM EDTCPREMI[facility] LABSpecimen (Source) Anatomical Location / LateralityCollection Method / VolumeCollection Time Received TimeBloodBLOOD SPECIMEN / UnknownVenipuncture / Rezvtoq9512/23/2024 11:28 AM EDT12/23/2024 11:28 AM EDT Narrative Authorizing ProviderResult TypeResult Chester Caban APRN.CNPLABORATORY Final ResultPerforming OrganizationAddressCity/State/ZIP CodePhone Number [facility] [address] [address], [place] * (ABNORMAL) IRON AND TIBC (12/23/2024 11:28 AM EDT)ComponentValueRef RangeTest MethodAnalysis TimePerformed AtPathologist JqbpjgtkaIqze1780 - 186 ug/dL 12/23/2024 6:45 PM EDTCPREMIER [facility] GTBPCWN530(H)232 - 386 ug/dL12/23/2024 6:45 PM [facility] LABTransferrin Vpcdiorrnl62.315.0 - 57.0 %12/23/2024 6:45 PM EDTCPREMI[facility] LABSpecimen (Source)Anatomical Location / LateralityCollection Method / Volume Collection TimeReceived TimeBloodBLOOD SPECIMEN / UnknownVenipuncture / Bunktmi3212/23/2024 11:28 AM EDT12/23/2024 11:28 AM EDT Narrative Authorizing ProviderResult TypeResult Chester Caban APRN.CNPLABORATORY Final ResultPerforming OrganizationAddressCity/State/ZIP CodePhone Number [facility] [address] [address], [place] * FERRITIN (12/23/2024 11:28 AM EDT)ComponentValueRef RangeTest MethodAnalysis TimePerformed AtPathologist XibvrficfTblpwqui01.514.7 - 205.1 ng/mL12/23/2024 7:00 PM EDTCPREMI[facility] LABSpecimen (Source)Anatomical Location / LateralityCollection Method / VolumeCollection TimeReceived Time BloodBLOOD SPECIMEN / UnknownVenipuncture / Bkmheue0312/23/2024 11:28 AM EDT 12/23/2024 11:28 AM EDT Narrative Authorizing ProviderResult TypeResult Chester Caban APRN.CNPLABORATORY Final ResultPerforming OrganizationAddressCity/State/ZIP CodePhone Number [facility] [address] [facility] [address] [place] [address], [place] from Last 3 Months Insurance Care Teams Team MemberRelationshipSpecialtyStart DateEnd Date Evans Casas DO [address] [place] [address] PCP - GeneralFamily Ckqcncfu79/3/22 Jonny Wilcox MD [address] [place] [id number] Primary Staff PhysicianCardiology07/16/18 [place] [address] [place] [id number] PhysicianHematology/Oncology09/14/21 Davida Restrepo, RN [address] [place] [address] Specialty Care CoordinatorHematology/Oncology09/14/21
--- OUTSIDE RECORDS SUMMARY | 2025-03-02 18:17 | XMS_ITS | Encounter Summary ---
Author Organization [facility] Address [address] [place] [address] Care Team Providers Care Stretcher Helper Name Role Phone Penelope Casas MD Primary Care Provider [phone] Encounter Details DateTypeDepartmentCare Team (Latest Contact Info)Jtowerstvix73/07/2024Clinisync Result Encounter [facility] External Department Unsolicited Mya Herrmann, DO [address] [facility] [address] [facility] [address] [place], [place] [id number] Social History Tobacco UseTypesPacks/DayYears UsedDateSmoking Tobacco: NeverSmokeless Tobacco: NeverAlcohol UseStandard Drinks/WeekCommentsNever0 (1 standard drink = 0.6 oz pure alcohol)PHQ-2AnswerDate RecordedPatient Health Questionnaire-2 Score0 01/06/2025CommentsYesSex and Gender InformationValueDate RecordedSex Assigned at BirthNot on fileLegal UfmTdkfrd01/15/2023 11:19 PM EDTGender IdentityNot on fileSexual OrientationNot on filedocumented as of this encounter Functional Status * Over the past 2 weeks, how often have you been bothered by any of the following problems?QuestionAnswerDate of AssessmentAuthorLittle interest or pleasure in doing thingsNot at all01/06/2025 9:35 AM Petra Flores LPN Feeling down, depressed, or hopelessNot at all01/06/2025 9:35 AM Petra Flores LPNPatient Health Questionnaire-2 Xqgnt168 9:35 AM Petra Flores LPN documented as of this encounter Plan of Treatment DateTypeDepartmentCare Team (Latest Contact Info)Nrhymlorcfe01/11/2025 9:50 AM ESTRoutine [facility] [place] [facility] [address] [place] [address] Mya Herrmann, DO [address] [place] [address] documented as of this encounter Procedures Procedure NamePriorityDate/TimeAssociated DiagnosisCommentsUS OB TRANSVAGINAL 04/05/2024 4:39 AM EST documented in this encounter Results * US OB TRANSVAGINAL (04/05/2024 4:39 AM EST)Anatomical RegionLateralityModality OtherSpecimen (Source)Anatomical Location / LateralityCollection Method / VolumeCollection TimeReceived Time04/05/2024 4:39 AM EST Narrative 04/05/2024 4:42 AM EST [facility] ?[address] ? [place] [address] ? Ultrasound Report ? Signed ? Patient: Sanna Rendon ?MR#: [id number] ?? : 1985 ?Acct:[id number] ?? Age/Sex: 38 / F ?ADM Date: 04/04/24 ?? Loc: [facility] ? Attending Dr: Mya Herrmann D.O. ? Ordering Physician: Mya Herrmann D.O. ?? Date of Service: 04/04/24 ?? Procedure(s): US OB transvaginal ?? Accession Number(s): [id number] ? cc: Mya Herrmann D.O.; PENELOPE CASAS ? [facility] ? [address] ? [place] [address] ? Patient Name: ?? SANNA RENDON ? MRN: [id number] ? date: 1985 ?Sex: F ?? Assigned Patient Location: [facility] ?? Current Patient Location: ? Accession/Order Number: [id number] ?? Exam Date: 04/04/2024 ??09:43 ?Report Date: [...] ?04/05/24441 ? DD/ 0439 ? TD/TT: ? Book Binder: Procedure Note Radiology, Radiologist, MD - 04/05/2024 The [place] [id number] Ultrasound Report Signed Patient: Sanna Rendon SMR#: [id number] : 1985Acct:[id number] Age/Sex: 38 / FADM Date: 04/04/24 Loc: [facility] Attending Dr: Mya Herrmann D.O. Ordering Physician: Mya Herrmann D.O. Date of Service: 04/04/24 Procedure(s): US OB transvaginal Accession Number(s): [id number] cc: Mya Herrmann D.O.; PENELOPE CASAS [address] [address] Patient Name: SANNA RENDON MRN: [id number] date: 1985 Sex: F Assigned Patient Location: [facility] Current Patient Location: Accession/Order Number: [id number] Exam Date: 04/04/2024 09:43 Report Date: 04/05/2024 [...] M.D. Signed By:04/05/24 0442 DD/ 0439 TD/TT: Book Binder: Authorizing ProviderResult TypeResult StatusCorecarmen Herrmann DOCLINISYNC IMAGINGFinal Result documented in this encounter Visit Diagnoses Not on filedocumented in this encounter Care Teams Team MemberRelationshipSpecialtyStart DateEnd Date Penelope Casas MD [address] [place] [address] PCP - GeneralFamily Medicine11/07/23documented as of this encounter
--- OUTSIDE RECORDS SUMMARY | 2025-03-02 18:17 | XMS_ITS | Encounter Summary ---
Author Organization [facility] Address [address] [place] [address] Care Team Providers Care Intermodal Truck Driver Name Role Phone Evans Casas MD Primary Care Provider Encounter Details DateTypeDepartmentCare Team (Latest Contact Info)Pfrdudjuooq72/31/2025linisync Result Encounter [facility] External Department Unsolicited Mya Herrmann DO [address] [place] [address] Social History Tobacco UseTypesPacks/DayYears UsedDateSmoking Tobacco: NeverSmokeless Tobacco: NeverAlcohol UseStandard Drinks/WeekCommentsNever0 (1 standard drink = 0.6 oz pure alcohol)PHQ-2AnswerDate RecordedPatient Health Questionnaire-2 Score0 01/06/2025Estimated Date of RsdvdixzMokqhnrzXze64/05/2026ased on last menstrual period of 07/28/2024Sex and Gender InformationValueDate RecordedSex Assigned at BirthNot on fileLegal MvmNtqsbz12/15/2023 11:19 PM EDTGender IdentityNot on fileSexual OrientationNot on filedocumented as of this encounter Plan of Treatment DateTypeDepartmentCare Team (Latest Contact Info)Rpvrbdovoch48/11/2025 9:50 AM ESTRoutine [facility] [place] [facility] [address] [place] [phone] Mya Herrmann DO [address] [place] [address] documented as of this encounter Procedures Procedure NamePriorityDate/TimeAssociated DiagnosisCommentsUS OB BPP W NON-NWULIG2202/27/2025 10:53 AM EDT documented in this encounter Results * US OB BPP W NON-STRESS (02/27/2025 10:53 AM EDT)Anatomical Region LateralityModalityOtherSpecimen (Source)Anatomical Location / Laterality Collection Method / VolumeCollection TimeReceived Time02/27/2025 10:53 AM EDT Narrative 02/27/2025 10:56 AM EDT [facility] ?[address] ? [place], [place] [address] ? Ultrasound Report ? Signed ? Patient: SANNA RENDON S ?MR#: [id number] ?? : 1985 ?Acct:[id number] ?? Age/Sex: 39 / F ?ADM Date: 02/26/25 ?? Loc: [place] ? Attending Dr: Mya Herrmann D.O. ? Ordering Physician: Mya Herrmann D.O. ?? Date of Service: 02/26/25 ?? Procedure(s): US OB BPP w non-stress ?? Accession Number(s): [id number] ? cc: Mya Herrmann D.O.; Physician,Non-Staff M.D. ? [facility] ? [address] [facility] ? [place] [address] ? Patient Name: ?? SANNA RENDON ? MRN: [facility]:[id number] ? date: 1985 ?Sex: F ?? Assigned Patient Location: [place] ?? Current Patient Location: ? Accession/Order Number: [id number] ?? Exam Date: 02/26/2025 ??19:42 ?Report Date: 02/27/2025 ??10:53 ? At the request of: ?? MYA ??MONTEZ ??DO ? Procedure: ??US OB BPP w non-stress ? BIOPHYSICAL PROFILE: ? CLINICAL INFORMATION: THIRD TRIMESTER Z34.93 ? COMPARISON: 02/19/2025 ? There is a single live intrauterine gestation in cephalic presentation. ??The ?? reported gestational age is 30 weeks 3 days. ??The heart rate measures ?? 148 beats per minute. ? FINDINGS: ? TONE: 1 or more [...] 2 cm ? [Y] ? 2/2 ?SARAHI: 12.5 cm ? Total score: ? 8/8 ? US/US OB BPP w non-stress ?? IMPRESSION: ? NORMAL BIOPHYSICAL PROFILE ? Impression dictated by: Pamela Pisano M.D. ??02/27/2025 10:53 AM ? Dictation Location: RADIO-PC-02 ? Electronically authenticated by: [id number] ??Y ?? Date: 02/27/2025 ??10:53 ? Dictated By: ?Pamela Pisano M.D. ? Signed By: ?10/31/25 1056 ? DD/ 1053 ? TD/TT: ? Meat Pickler: Procedure Note Radiology, Radiologist, - 02/27/2025 [place] [address] Ultrasound Report Signed Patient: SANNA RENDON SMR#: [id number] : 1985Acct:[id number] Age/Sex: 39 / FADM Date: 02/26/25 Loc: [place] Attending Dr: Mya Herrmann D.O. Ordering Physician: Mya Herrmann D.O. Date of Service: 02/26/25 Procedure(s): US OB BPP w non-stress Accession Number(s): [id number] cc: Mya Herrmann D.O.; Physician,Non-Staff M.D. The [place] [id number] Patient Name: SANNA RENDON MRN: [id number] date: 1985 Sex: F Assigned Patient Location: [place] Current Patient Location: Accession/Order Number: [id number] Exam Date: 02/26/2025 19:42 Report Date: 02/27/2025 10:53 At the request of: MYA HERRMANN DO Procedure: US OB BPP w non-stress BIOPHYSICAL PROFILE: CLINICAL INFORMATION: THIRD TRIMESTER Z34.93 COMPARISON: 02/19/2025 There is a single live intrauterine gestation in cephalic presentation.The reported gestational age is 30 weeks 3 days. The heart ratemeasures 148 beats per minute. FINDINGS: TONE: 1 or more episodes of [...] greater than 2 cm [Y] 2/2 SARAHI: 12.5 cm Total score: 8/8 US/US OB BPP w non-stress IMPRESSION: NORMAL BIOPHYSICAL PROFILE Impression dictated by: Pamela Pisano M.D. 02/27/2025 10:53 AM Dictation Location: [place] [address] Electronically authenticated by: [id number] Y Date: 0:53 Dictated By: Pamela Pisano M.D. Signed By:02/27/25 1056 DD/ 1053 TD/TT: Meat Pickler: Authorizing ProviderResult TypeResult StatusCorey Montez DOCLINISYNC IMAGINGFinal Result documented in this encounter Visit Diagnoses Not on filedocumented in this encounter Care Teams Team MemberRelationshipSpecialtyStart DateEnd Date Evans Casas MD [address] [place] [address] PCP - GeneralFamily Medicine11/07/23documented as of this encounter
--- OUTSIDE RECORDS SUMMARY | 2025-03-02 18:17 | XMS_ITS | Clinical Summary ---
Author Organization [facility] Address [address] [place] [address] Care Team Providers Care Detail Drafter Name Role Phone Penelope Casas MD Primary Care Provider [phone] Allergies Active AllergyReactionsCriticalityNoted DateCommentsCiprofloxacinGI intolerance 04/19/2023iprofloxacin-Fluocinolone Pf05/19/2019 Other Reaction(s): Other: See Comments Dizziness, weakness sweating Vgjvgzn5409/10/2017 Other Reaction(s): GI Disturbance, GI Upset Diarrhea Diarrhea Lactose Intolerance (Gi)11/15/2023 Other Reaction(s): Illness Kwbwtxegyud88/06/2021 Other Reaction(s): Other (See Comments) DlwyxNbgleOob69/26/2018 seasonal Other Reaction(s): Other (See Comments) Medications MedicationSigDispense QuantityRefillsLast FilledStart DateEnd DateStatus Multiple Vitamin (Multi-Vitamin) tablet Take 1 tablet by mouth in the morning.Active levothyroxine (Synthroid) 25 MCG tablet Indications:Abnormal TSHTake 1 tablet (25 mcg) by mouth in the morning. Take before meals. 30 tablet 110//[id number]//6Active enoxaparin (Lovenox) 40 MG/0.4ML injection 1 (one) time each day at the same timeActive docusate sodium (Colace) 50 MG capsule Take 100 mg by mouth in the morning and 100 mg before bedtime.Active polyethylene glycol, PEG, 3350 (Glycolax) 17 GM/SCOOP powder Take 17 g by mouth DailyActive Alcohol Swabs (Alcohol Prep Pad) 70 % pads Indications:Second trimester ([facility]),13 weeks gestation of ([facility]),Multigravida of advanced maternal age in second trimester ([facility]), Gestational diabetes mellitus (GDM), antepartum, gestational diabetes method of control unspecified([facility]),Elevated glucose tolerance testApply 1 Pad topically Daily Use four times daily to check FSBS. 150 each tive Blood Glucose Monitoring Suppl (D-Achievers Glucometer) w/Device kit Indications:Second trimester ([facility]),13 weeks gestation of ([facility]),Multigravida of advanced maternal age in second trimester ([facility]), Gestational diabetes mellitus (GDM), antepartum, gestational diabetes method of control unspecified([facility]),Elevated glucose tolerance test1 kit Daily Use [...] (GDM), antepartum, gestational diabetes method of control unspecified([facility])Take 3 tablets (1,500 mg) by mouth in the evening. Take with meals Do not crush, chew, or split. 90 tablet 5Active Enoxaparin Sodium (Lovenox) 40 MG/0.4ML solution prefilled syringe Indications:Anticoagulant long-term use,Antiphospholipid antibody positive, Antiphospholipid antibody syndrome ([facility])Inject 40 mg as directed Daily for 30 doses 12 mL Expired Active Problems ProblemNoted DateDiagnosed DateH/O loss01/05/2025Multigravida of advanced maternal age in second trimester ([facility])01/05/2025Thyroid riqllrm7901/05/2025 Referred otalgia of right ear11/19/2023LPRD (laryngopharyngeal reflux disease) 11/19/2023cute on chronic vesicular eczema of hands and feet11/15/2023lood pressure elevated without history of HTN11/15/2023MI 37.0-37.9, adult11/15/2023 Cold uqagxcozfzj13/18/2024eviated lvgnsg8711/15/2023ry mouth11/15/2023Elevated blood pressure yeplxkm9911/15/2023Environmental snuskqljp94/18/2024H/O: tgploilpzkjgxe97/18/2024History of eyxzbi6711/15/2023History of cerebrovascular ymvqocho35/18/2024 Overview (11/15/2023): reported by pt - related to antiphospholipid syndrome History of COVID-19011/15/2023History of gestational xiajwujo97/18/2024History of kidney cuuabe6411/15/2023Hx of iron deficiency zsqcug1811/15/2023Immunization not carried out because of patient vhedigdh54/18/2024Iron txechoxbpe40/18/2024 Irregular uterine fzuntlje36/18/2024Morbid ryydaot9311/15/2023Nasal polyps 11/15/2023Non-wbllas1811/15/2023OSA (obstructive sleep apnea)11/15/2023aresthesia of bilateral legs11/15/2023re-ztnmgexp73/18/2024Right lower quadrant pain 4Right otitis fjamfxu1811/15/2023Salivary gland blupjtgt63/18/2024Snoring 11/15/2023bdominal pain06/12/2023cute bronchitis due to /13/2024 Orhnezq3306/12/2023ysfunction of eustachian tube06/12/20230563Vkzekje47/13/2024 Ylxyxknwlycc13/13/2024Inhalation thurqr0206/12/2023Lactation problem ([facility]) 06/12/2023sychogenic yphugzbyiufrpyjb28/13/2024Suspected severe acute respiratory syndrome coronavirus 2 (SARS-CoV-2) ibtfjpfoc50/13/2024Hypoglycemia 06/12/2023rimary hypercoagulable state ([facility])08/01/2022estational diabetes mellitus (GDM), antepartum ([facility])01/26/2022Genitourinary srokxqhm39/22/2022 Muscle pullvwoosnrsl10/22/2022nticoagulant long-term use02/22/2020 Cerebrovascular accident (CVA) due to stenosis of middle cerebral artery 02/22/2020Anemia complicating childbirth ([facility])01/16/2020First degree perineal laceration during delivery ([facility])01/16/2020Acute posthemorrhagic fjfoac3301/16/2020Other immediate hemorrhage ([facility])01/16/2020 Personal history of urinary (tract) ticdvevpbd56/18/2020Single live ([facility])01/15/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 ([facility])01/08/2020Pruritus, klwobdjuebk87/04/2020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)12/30/201932 weeks gestation of ([facility])11/28/2019Thrombocytopenia, omoxpaxcisk72/23/2020Other general symptoms and signs10/28/2019Urinary tract wcwgygtrb94/18/2020 Ljgogaqbbljm20/28/2020SVT (supraventricular tachycardia)08/26/2019 Antiphospholipid antibody syndrome ([facility])07/07/2019Other bacterial infections of unspecified site06/27/2019Less than 8 weeks gestation of ([facility]) 06/05/2019Encounter for supervision of normal , unspecified, first trimester ([facility])05/29/2019Cerebral infarction, uegzbfybxoi92/17/2020 Deficiency of other specified B group baotfohh26/17/9406Hyxlsdasljmx80/17/2020 Unspecified condition associated with female genital organs and menstrual cycle 05/09/2019Other specified noninflammatory disorders of awsduw1502/21/2019Frequency of hmihhtnpcma97/23/2019Unspecified ovarian cyst, right side02/06/2019 Dapruebzhqu83/09/2019Coagulation defect, unspecified ([facility])02/05/2019 Dizziness and tzdbbnymq33/09/2019Long term (current) use of 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/tahnyzexoycxw60/09/2019Other acute postprocedural pain02/03/2019 Pelvic and perineal pain02/01/2019Syncope and oqhslyht10/04/2019Raised antibody titer09/25/2017Migraine without aura and without status migrainosus, not wtgtjhytphq51/16/2018Antiphospholipid antibody tycyuoyu68/14/2018Fatigue 12/29/2016Idiopathic progressive /01/2017Pain in joint12/29/2016 Estimated Date of BlvtsdftJbbveyfoMsq28/05/2026Based on last menstrual period of 07/28/2024 Encounters DateTypeDepartmentCare TgimDqtizyuhxal76/31/2025Clinisync Result Encounter [facility] External Department Unsolicited Mya Herrmann, DO 02/23/2025 9:00 AM EDTRoutine [facility] [place] [facility] [address] [place] [address] Mya Herrmann, DO Third trimester ([facility]); 30 weeks gestation of ([facility])02/23/2025amboo flowsheet [facility] [place] [address] [place] [address] Mya Herrmann, DO 02/20/2025linisync Result Encounter [facility] External Department Unsolicited Mya Herrmann, DO 02/20/2025linisync Result Encounter [facility] External Department Unsolicited Mya Herrmann, DO 02/17/2025bstract [facility] [place] [facility] [address] [place] [address] Mya Herrmann, DO 02/09/2025 10:30 AM EDTRoutine [facility] [place] [facility] [address] [place] [phone] Mya Herrmann, DO Third trimester ([facility]); 28 weeks gestation of ([facility]); Anemia complicating childbirth ([facility]); Anticoagulant long-term use; Antiphospholipid antibody positive; Blood pressure elevated without history of HTN; Coagulation defect, unspecified ([facility])02/09/[place] [address] Mya Herrmann DO 02/03/2025Patient Outreach [facility] [address] [place] [address] Petra Whitmore, PRODUCT DEVELOPMENT WORKER 01/21/2025Telephone [facility] [place] [facility] [address] [place] [address] Celia Keith NP 01/19/2025 9:00 AM EDTRoutine [facility] [place] [facility] [address] [place] [address] Mya Hrermann DO Second trimester ([facility]); 25 weeks gestation of ([facility]); Gestational diabetes mellitus (GDM), antepartum, gestational diabetes method of control unspecified([facility]); Anticoagulant long-term use; Antiphospholipid antibody positive; Antiphospholipid antibody syndrome ([facility])01/19/2025bstract [facility] [address] [place] [address] Mya Herrmann DO 01/15/2025Telephone [facility] [place] [facility] [address] [place] [address] [place] [address] Lala Hess MA 01/06/2025Patient Outreach [facility] [address] [place] [address] Petra Whitmore, PRODUCT DEVELOPMENT WORKER 01/05/2025 2:40 PM EDTRoutine [facility] [place] [facility] [address] [place] [address] May Herrmann, Second trimester ([facility]); 23 weeks gestation of ([facility]); Thyroid disease ; Gestational diabetes mellitus (GDM), antepartum, gestational diabetes method of control unspecified([facility]); Multigravida of advanced maternal age in second trimester ([facility]); H/O loss; Lightheaded; Nowacljum31/08/2025amboo flowsheet [facility] [place] [facility] [address] [place] [address] Mya Herrmann, DO 12/26/2024bstract [facility] [place] [facility] [address] [place] [address] Mya Herrmann, DO 12/18/2024bstract [facility] [place] [facility] [address] [place] [address] Mya Herrmann, DO 5Clinisync Result Encounter [facility] External Department Unsolicited Mya Herrmann, DO 12/16/2024linisync Result Encounter [facility] External Department Unsolicited Mya Herrmann, DO 12/12/2024Telephone [facility] [place] [facility] [address] [place] [address] Ariane Joseph, PRODUCT DEVELOPMENT WORKER 12/12/2024Patient Outreach [facility] [address] [place] [address] Petra Whitmore, PRODUCT DEVELOPMENT WORKER 12/11/2024 9:10 AM EDTRoutine [facility] [place] [facility] [address] [place] [address] Mya Herrmann, DO 19 weeks gestation of ([facility]); Second trimester ([facility]); Thyroid disease ; Multigravida of advanced maternal age in second trimester ([facility]); Gestational diabetes mellitus (GDM), antepartum, gestational diabetes method of control unspecified([facility])12/11/2024linisync Result Encounter [facility] External Department Unsolicited Mya Herrmann, DO 12/11/2024amboo flowsheet [facility] [place] [facility] [address] [place] [address] Mya Herrmann, DO 12/08/2024Patient Outreach [facility] [address] [place] [address] Petra Whitmore LPN 12/04/2024bstract [facility] [address] [place] [address] Petra Whitmore LPN from Last 3 Months Family History Medical HistoryRelationNameCommentsCerebrovascular AccidentFatherDiabetesFather Heart problemsMaternal GrandfatherMental illnessMaternal GrandmotherCancer Paternal GrandfatherDiabetesPaternal GrandfatherCancerPaternal Grandmother DiabetesPaternal GrandmotherDiabetesSisterRelationNameStatusCommentsFather Maternal GrandfatherMaternal GrandmotherPaternal GrandfatherPaternal Grandmother Sister Social History Tobacco UseTypesPacks/DayYears UsedDateSmoking Tobacco: NeverSmokeless Tobacco: Never Tobacco Cessation:Counseling Given: Not Answered Alcohol UseStandard Drinks/WeekCommentsNever0 (1 standard drink = 0.6 oz pure alcohol)PHQ-2AnswerDate RecordedPatient Health Questionnaire-2 Bwgqg953 Estimated Date of ZbapyswdSnwvgjpyZyw38/05/2026ased on last menstrual period of 07/28/2024Sex and Gender InformationValueDate RecordedSex Assigned at BirthNot on fileLegal OxpMctpie20/15/2023 11:19 PM EDTGender IdentityNot on file Sexual OrientationNot on file Last Filed Vital Signs Vital SignReadingTime TakenCommentsBlood Tzemwiyb332/7210 9:26 AM EDT Pulse--Temperature--Respiratory Rate--Oxygen Saturation--Inhaled Oxygen Concentration--Womgil85.5 kg (210 lb 8 oz)02/23/2025 9:26 AM PMZIwluna114.6 cm (5' 6 )11/19/2023 1:48 PM EDTBody Mass Index33.98011/19/2023 1:48 PM EDT Plan of Treatment DateTypeDepartmentCare Team (Latest Contact Info)Lxzraaolsnj24/11/2025 9:50 AM ESTRoutine [facility] [place] [facility] [address] [place] [address] Montez, Mya, [address] [place] [address] Health MaintenanceDue DateLast DoneCommentsMMR Vaccines (1 of 1 - Standard series)1986DTaP/Tdap/Td Vaccines (1 - Tdap)1992Varicella Vaccines (1 of 2 - 13+ 2-dose series)1998Hepatitis B Vaccines (1 of 3 - 19+ 3-dose series)2004HPV Vaccines (1 - 3-dose SCDM series)2012HPV/Cotest 10/22/2015COVID-19 Vaccine ( - season)2024Influenza Vaccine (#1) 2024ervical Cancer Wcgpibpek94/18/2025Pap SmearHIB VaccinesAged OutNo longer eligible based on [...] to complete this topic Procedures Procedure NamePriorityDate/TimeAssociated DiagnosisCommentsUS OB BPP W NON-BGRLIC9202/27/2025 10:53 AM EDT POCT URINALYSIS XPDAOUJEZipnypl87/27/2025 9:38 AM EDT 30 weeks gestation of ([facility]) US OB JUNVKM2202/20/2025 8:37 AM EDT US OB BPP W NON-VYTBCF5602/20/2025 8:37 AM EDT POCT URINALYSIS ACTQFPGYWfmslyb69/13/2025 10:55 AM EDT 28 weeks gestation of ([facility]) POCT URINALYSIS RXTZHMKQGmfrygt41/22/2025 9:33 AM EDT Second trimester ([facility]) POCT URINALYSIS UWUKMVTJPinplne88/08/2025 3:25 PM EDT Second trimester ([facility]) US OB CERVICAL GDKCNH4912/16/2024 8:41 PM EDT [facility] URINE MICROSCOPIC EMXQQwcrqen30/19/2025 6:32 PM EDT [facility] UA (CLEAN/CATCH) DRAFTING SUPERVISOR/MICRO IF IND.Jcyqajy3512/16/2024 6:32 PM EDT ALL THYROID STIM ZUFRNYLCasxczn57/14/2025 10:50 AM EDT POCT URINALYSIS CJFIGZHVWamtyej78/14/2025 9:36 AM EDT 19 weeks gestation of ([facility]) Second trimester ([facility]) PAP KUVGBEtzfnri32/18/2022 12:00 AM EDTfrom Last 3 Months or Most Recently Relevant to Health Maintenance Results * US OB BPP W NON-STRESS (02/27/2025 10:53 AM EDT) Only the most recent of2 resultswithin the time period is included. Anatomical RegionLateralityModalityOtherSpecimen (Source)Anatomical Location / LateralityCollection Method / VolumeCollection TimeReceived Time02/27/2025 10:53 AM EDT Narrative 02/27/2025 10:56 AM EDT [facility] ?[address] ? [place] [address] ? Ultrasound Report ? Signed ? Patient: PHEBA,MADHU S ?MR#: [id number] ?? : 1985 ?Acct:[id number] ?? Age/Sex: 39 / F ?ADM Date: 10/30/25 ?? Loc: US ? Attending Dr: Mya Herrmann D.O. ? Ordering Physician: Mya Herrmann D.O. ?? Date of Service: 02/26/25 ?? Procedure(s): US OB BPP w non-stress ?? Accession Number(s): [id number] ? cc: Mya Herrmann D.O.; Physician,Non-Staff M.D. ? [facility] ? [address] ? [place] [address] ? Patient Name: ?? MADHU RENDON ? MRN: [facility]:[id number] ? date: 1985 ?Sex: F ?? Assigned Patient Location: US ?? Current Patient Location: ? Accession/Order Number: [id number] ?? Exam Date: 02/26/2025 ??19:42 ?Report Date: [...] Dictation Location: RADIO-PC-02 ? Electronically authenticated by: [id number] ??Y ?? Date: 02/27/2025 ??10:53 ? Dictated By: ?Pamela Pisano M.D. ? Signed By: ?02/27/25 1056 ? DD/ 1053 ? TD/TT: ? Baking Assistant: Procedure Note Radiology, Radiologist, MD - 02/27/[address] [address] Ultrasound Report Signed Patient: MADHU RENDON SMR#: [id number] : 1985Acct:[id number] Age/Sex: 39 / FADM Date: 02/26/25 Loc: US Attending Dr: Mya Herrmann D.O. Ordering Physician: Mya Herrmann D.O. Date of Service: 02/26/25 Procedure(s): US OB BPP w non-stress Accession Number(s): [id number] cc: Mya Herrmann D.O.; Physician,Non-Staff Tamia [place] [address] Patient Name: MADHU RENDON MRN: [id number] date: 1985 Sex: F Assigned Patient Location: US Current Patient Location: Accession/Order Number: [id number] Exam Date: 02/26/2025 19:42 Report Date: 02/27/2025 [...] Pisano M.D. 02/27/2025 10:53 AM Dictation Location: [place] [address] Electronically authenticated by: [id number] Y Date: 0:53 Dictated By: Pamela Pisano M.D. Signed By:02/27/25 1056 DD/ 1053 TD/TT: Baking Assistant: Authorizing ProviderResult TypeResult StatusCorey Montez DOCLINISYNC IMAGINGFinal Result * POCT urinalysis dipstick manually resulted (02/23/2025 [...] Location / LateralityCollection Method / VolumeCollection TimeReceived RdygAwydc97/27/2025 9:38 AM EDT Narrative Authorizing ProviderResult TypeResult StatusCorey Montez DOPOINT OF CARE TEST ENTER/EDIT ORDERABLESFinal Result * US OB GROWTH (02/20/2025 8:37 AM EDT)Anatomical RegionLateralityModalityOther Specimen (Source)Anatomical Location / LateralityCollection Method / Volume Collection TimeReceived Time02/20/2025 8:37 AM EDT Narrative 02/20/2025 8:40 AM EDT [facility] ?[address] ? [place] [address] ? Ultrasound Report ? Signed ? Patient: MADHU RENDON ?MR#: [id number] ?? : 1985 ?Acct:[id number] ?? Age/Sex: 39 / F ?ADM Date: 02/19/25 ?? Loc: US ? Attending Dr: Mya Herrmann D.O. ? Ordering Physician: Mya Herrmann D.O. ?? Date of Service: 02/19/25 ?? Procedure(s): US OB growth ?? Accession Number(s): [id number] ? cc: Mya Herrmann D.O.; Physician,Non-Staff Tamia ? [facility] ? [address] ? [place] [address] ? Patient Name: ?? MADHU RENDON ? MRN: [facility]:[id number] ? date: 1985 ?Sex: F ?? Assigned Patient Location: LAB ?? Current Patient Location: ? Accession/Order Number: [id number] ?? Exam Date: 02/19/2025 ??19:47 ?Report Date: [...] Dictation Location: RADIO-PC-02 ? Electronically authenticated by: [id number] ??Y ?? Date: 02/20/2025 ??08:37 ? Dictated By: ?Pamela Pisano M.D. ? Signed By: ?10/24/25 0840 ? DD/ 0837 ? TD/TT: ? Baking Assistant: Procedure Note Radiology, Radiologist, MD - 02/20/2025 [place] [address] Ultrasound Report Signed Patient: MADHU RENDON SMR#: [id number] : 1985Acct:[id number] Age/Sex: 39 / FADM Date: 02/19/25 Loc: US Attending Dr: Mya Herrmann D.O. Ordering Physician: Mya Herrmann D.O. Date of Service: 02/19/25 Procedure(s): US OB growth Accession Number(s): [id number] cc: Mya Herrmann D.O.; Physician,Non-Staff M.D. The [place] [id number] Patient Name: MADHU RENDON MRN: [id number] date: 1985 Sex: F Assigned Patient Location: LAB Current Patient Location: Accession/Order Number: [id number] Exam Date: 02/19/2025 19:47 Report Date: 02/20/2025 [...] [Y] 2/2 SARAHI: 13.2 cm Total score: 88 IMPRESSION: NORMAL BIOPHYSICAL PROFILE Impression dictated by: Pamela Pisano M.D. 02/20/2025 8:37 AM Dictation Location: [place] [address] Electronically authenticated by: [id number] Y Date: 508:37 Dictated By: Pamela Pisano M.D. Signed By:02/20/25 0840 DD/ 0837 TD/TT: Baking Assistant: Authorizing ProviderResult TypeResult StatusCorey Montez DOCLINISYNC IMAGINGFinal Result * US OB CERVICAL LENGTH (12/16/2024 8:41 PM EDT)Anatomical RegionLaterality ModalityOtherSpecimen (Source)Anatomical Location / LateralityCollection Method / VolumeCollection TimeReceived Time12/16/2024 8:41 PM EDT Narrative 12/16/2024 8:43 PM EDT [facility] ?[address] ? [place] [address] ? Ultrasound Report ? Signed ? Patient: JUSTICE,MADHU S ?MR#: [id number] ?? : 1985 ?Acct:[id number] ?? Age/Sex: 39 / F ?ADM Date: ?? Loc: [facility] ??251-1 ? Attending Dr: Mya Herrmann D.O. ? Ordering Physician: Mya Herrmann D.O. ?? Date of Service: 12/16/24 ?? Procedure(s): US OB cervical length ?? Accession Number(s): [id number] ? cc: Mya Herrmann D.O.; PENELOPE CASAS ? [facility] ? [address] ? [place] [address] ? Patient Name: ?? MADHU RENDON ? MRN: [facility]:[id number] ? date: 1985 ?Sex: F ?? Assigned Patient Location: FB ?? Current Patient Location: ? Accession/Order Number: [id number] ?? Exam Date: 12/16/2024 ??20:39 ?Report Date: [...] M.D. ??12/16/2024 8:41 PM ? Dictation Location: RADIO-PC-20 ? Electronically authenticated by: [id number] ??Y ?? Date: 12/16/2024 ??20:41 ? Dictated By: ?Robert Beltrán D.O. ? Signed By: ?12/16/242042 ? DD/ 40 ? TD/TT: ? Baking Assistant: Procedure Note Radiology, Radiologist, MD - 12/16/[address] [address] Ultrasound Report Signed Patient: MADHU RENDON SMR#: [id number] : 1985Acct:[id number] Age/Sex: 39 / FADM Date: [facility]: Mya Herrmann D.O. Ordering Physician: Mya Herrmann D.O. Date of Service: 12/16/24 Procedure(s): US OB cervical length Accession Number(s): [id number] cc: Mya Herrmann D.O.; PENELOPE CAASS [place] [address] Patient Name: MADHU RENDON MRN: [id number] date: 1985 Sex: F [facility] Current Patient Location: Accession/Order Number: [id number] Exam Date: 12/16/2024 20:39 Report Date: 12/16/2024 [...] Beltrán M.D. 12/16/2024 8:41 PM Dictation Location: [place] [address] Electronically authenticated by: [id number] Y Date: 0:41 Dictated By: Robert Beltrán D.O. Signed By:12/16/242042 DD/ 40 TD/TT: Baking Assistant: Authorizing ProviderResult TypeResult StatusCorey Montez DOCLINISYNC IMAGINGFinal Result * (ABNORMAL) [facility] URINE [...] 6:32 PM EDT12/16/2024 6:40 PM EDT Narrative [facility] - 12/16/2024 7:09 PM EDT Authorizing ProviderResult TypeResult StatusCorey Montez DOCLINISYNCFinal Result Performing OrganizationAddressCity/State/ZIP CodePhone Number [facility]INIS[facility]NC [facility] * (ABNORMAL) [facility] UA (CLEAN/CATCH) DRAFTING SUPERVISOR/MICRO IF IND. (12/16/2024 6:32 PM EDT) ComponentValueRef RangeTest MethodAnalysis TimePerformed AtPathologist SignatureCOLOR URINELT. YELLOWYELLOWTBHCLARITY URINECLEARCLEARTBHSPECIFIC GRAVITY URINE<=1.005(A)1.005 - 1.025TBHPH URINE6.05.0 - 9.0TBHPROTEIN URINE NEGATIVENEG/TRACE mg/dLTBHGLUCOSE URINE UANEGATIVENEGATIVE mg/dLTBHBILIRUBIN URINENEGATIVENEGATIVETBHKETONES URINENEGATIVENEGATIVE mg/dLTBHBLOOD URINE NEGATIVENEGATIVETBHNITRITE URINENEGATIVENEGATIVETBHUROBILINOGEN URINE0.20.2 - 1.0 EU/dLTBHLEUKOCYTE ESTERASE URINESMALL(A)NEGATIVETBHURINE MICROSCOPIC INDICATEDYESTBHSpecimen (Source)Anatomical Location / LateralityCollection Method / VolumeCollection TimeReceived Time12/16/2024 6:32 PM EDT12/16/2024 6:40 PM EDT Narrative [facility] - 12/16/2024 7:09 PM EDT Authorizing ProviderResult TypeResult StatusCorey Montez DOCLINISYNCFinal Result Performing OrganizationAddressCity/State/ZIP CodePhone Number [facility] * ALL THYROID STIM HORMONE (12/11/2024 10:50 AM EDT)ComponentValueRef RangeTest MethodAnalysis TimePerformed AtPathologist SignatureTHYROID STIMULATING HORMONE1.5080.358 - 3.740 uIU/mLTBHSpecimen (Source)Anatomical Location / LateralityCollection Method / VolumeCollection TimeReceived Time12/11/2024 10:50 AM EDT12/11/2024 10:51 AM EDT Narrative [facility] - 12/11/2024 11:33 AM EDT Authorizing ProviderResult TypeResult StatusCorey Montez DOCLINISYNCFinal Result Performing OrganizationAddressCity/State/ZIP CodePhone Number [facility] * Pap Smear (02/14/2022 12:00 AM EDT)Specimen (Source)Anatomical Location / LateralityCollection Method / VolumeCollection TimeReceived TimeSwabCervical swab / Unknown Narrative Authorizing ProviderResult TypeResult StatusFazio Nurse [facility] ObLAB CYTOLOGY ORDERABLESFinal ResultPerforming OrganizationAddressCity/State/ZIP CodePhone Number EXTERNAL LAB from Last 3 Months or Most Recently Relevant to Health Maintenance Insurance Care Teams Team MemberRelationshipSpecialtyStart DateEnd Date Penelope Casas MD [address] [place] [place] [address] PCP - GeneralFamily Medicine11/07/23
--- OUTSIDE RECORDS SUMMARY | 2025-03-02 18:17 | XMS_ITS | Encounter Summary ---
Author Organization [facility] Address [address] [place] [address] Care Team Providers Care Heater Tender Name Role Phone Jonny Wilcox MD Unavailable [phone] Cosmo Elliott MD Unavailable [phone] Davida Restrepo RN Unavailable [phone] Evans Casas DO Primary Care Provider [phone] Source Comments In the event this information is protected by the Federal Confidentiality of Alcohol and Drug AbusePatient Records regulations: The Federal rules restrict any use of the information to criminally investigate or prosecute any alcohol or drug abuse patient.[facility] Encounter Details DateTypeDepartmentCare Team (Latest Contact Info)Zrhawsnegmo10/03/2025Travel Social History Tobacco UseTypesPacks/DayYears UsedDateSmoking Tobacco: NeverSmokeless Tobacco: NeverAlcohol UseStandard Drinks/WeekCommentsNo0 (1 standard drink = 0.6 oz pure alcohol)PHQ-2AnswerDate RecordedPHQ-2 [id number] Deprivation Index AnswerDate RecordedNational Score (1-100), lower number is lower risk58 09/28/2022State Score (1-10), lower number is lower [id number] from: https://www.neighborhoodatlas.medicine.[facility].edu/. Last address used for [address]Estimated Date of DeliveryCommentsYes 07/28/2024Sex and Gender InformationValueDate RecordedSex Assigned at BirthNot on fileLegal HflSjsxfe95/29/2018 10:06 AM ESTGender IdentityNot on fileSexual OrientationNot on fileOccupationIndustryJob Start DateJob End Datestay at home momNot on fileNot on fileNot on filedocumented as of this encounter Plan of Treatment DateTypeDepartmentCare Team (Latest Contact Info)Ebefsqojvqg48/01/2025 8:00 AM ESTOffice Visit [facility] [address] [place] [address] [place] [address] Return in 4 weeks lab and possible iron03/30/2025 8:20 AM ESTVisit (SP) Office Hematology/Oncology [address] [place] [address] [place] [address] Salvador Dos Santos MD [address] [place] [address] [place] [address] Return in 4 weeks lab and possible iron03/30/2025 8:30 AM [facility] Hematology/Oncology [address] [place] [address] [place] [address] Return in 4 weeks lab and possible irondocumented as of this encounter Visit Diagnoses Not on filedocumented in this encounter Care Teams Team MemberRelationshipSpecialtyStart DateEnd Date Evans Casas DO [address] [place] [address] PCP - GeneralFamily Wnwnopgj77/3/22 Jonny Wilcox MD [address] [place] [address] Primary Staff PhysicianCardiology07/16/18 [place] [address] [place] [address] PhysicianHematology/Oncology09/14/21 Davida Restrepo, RN [address] [place] [address] Specialty Care CoordinatorHematology/Oncology09/14/21documented as of this encounter
--- OUTSIDE RECORDS SUMMARY | 2025-03-02 18:17 | XMS_ITS | Encounter Summary ---
Author Organization [facility] Address [address] [facility] [place] [address] Care Team Providers Care Tapper Operator Name Role Phone Evans Casas MD Primary Care Provider Encounter Details DateTypeDepartmentCare Team (Latest Contact Info)Wippapdrbkq86/21/2025bstract NOMJaylan COLVIN [address] [place] [address] Wilton Herrmann DO [address] June [place], [facility]11 Social History Tobacco UseTypesPacks/DayYears UsedDateSmoking Tobacco: NeverSmokeless Tobacco: NeverAlcohol UseStandard Drinks/WeekCommentsNever0 (1 standard drink = 0.6 oz pure alcohol)PHQ-2AnswerDate RecordedPatient Health Questionnaire-2 Score0 01/06/2025Estimated Date of TpnihduqCbzctvkwEai53/05/2026ased on last menstrual period of 07/28/2024Sex and Gender InformationValueDate RecordedSex Assigned at BirthNot on fileLegal YpxLgwltu09/15/2023 11:19 PM EDTGender IdentityNot on fileSexual OrientationNot on filedocumented as of this encounter Plan of Treatment DateTypeDepartmentCare Team (Latest Contact Info)Olokzvglyil24/11/2025 9:50 AM ESTRoutine NOMJaylan COLVIN [address] [place] [address] Wilton Herrmann [address] [place] [address] documented as of this encounter Visit Diagnoses Not on filedocumented in this encounter Care Teams Team MemberRelationshipSpecialtyStart DateEnd Date Evans Casas MD [address] [place] [address] PCP - GeneralFamily Medicine11/07/23documented as of this encounter
--- OUTSIDE RECORDS SUMMARY | 2025-03-02 18:17 | XMS_ITS | Encounter Summary ---
Author Organization [facility] tem Address [id number] [address] [place] [address] Care Team Providers Care Survey Technologist Name Role Phone Evans Casas DO Primary Care Provider [phone] Encounter Details DateTypeDepartmentCare Team (Latest Contact Info)Hguxgcolsxj88/20/2025Travel Social History Tobacco UseTypesPacks/DayYears UsedDateSmoking Tobacco: NeverSmokeless Tobacco: NeverAlcohol UseStandard Drinks/WeekCommentsNot Currently0 (1 standard drink = 0.6 oz pure alcohol)ChildcareAnswerDate MtklsbhhLavlmjepcGinklst29/31/2019 EmploymentAnswerDate RvlxpdsoFodjkvdcweYpptlwg86/31/2019Hunger ScreeningAnswer Date RecordedWithin the past 12 months we worried whether our food would run out before we got money to buy more.Never True01/01/2025Within the past 12 months the food we bought just didn't last and we didn't have money to get more.Never True01/01/2025Purpose - LifeAnswerDate RecordedPurpose and direction in life Aihrsdk13/11/2021Estimated Date of PfkhjkseRvkvbzlySvv00/05/2026Based on last menstrual period of 07/28/2024Sex and Gender InformationValueDate Recorded Sex Assigned at BirthNot on fileLegal LmaIplbgq63/31/2019 12:25 PM EDTGender IdentityNot on fileSexual OrientationNot on filedocumented as of this encounter Plan of Treatment DateTypeDepartmentCare Team (Latest Contact Info)Oxtsuidmfis07/11/2025 8:00 AM ESTTelemedicine Maternal- Medicine at [facility] [address] [place] [address] Sana Palma MD [address] [place] [address] 03/17/2025 8:30 AM ESTTelemedicine [facility], A Department of [address] [address] Sam Callahan MD [address] [address] documented as of this encounter Visit Diagnoses Not on filedocumented in this encounter Care Teams Team MemberRelationshipSpecialtyStart DateEnd Date Evans Casas DO PCP - GeneralFamily Medicine07/07/19documented as of this encounter
--- OUTSIDE RECORDS SUMMARY | 2025-03-02 18:18 | XMS_ITS | Encounter Summary ---
Author Organization [facility] Address [address] [facility] [place] [address] Care Team Providers Care Event Decorator Name Role Phone Penelope Casas MD Primary Care Provider [phone] Encounter Details DateTypeDepartmentCare Team (Latest Contact Info)Wnpmcnflruc89/11/2025linisync Result Encounter N[facility]S External Department Unsolicited Mya Herrmann, DO [address] [facility] [address] [place], [place] [address] Social History Tobacco UseTypesPacks/DayYears UsedDateSmoking Tobacco: NeverSmokeless Tobacco: NeverAlcohol UseStandard Drinks/WeekCommentsNever0 (1 standard drink = 0.6 oz pure alcohol)PHQ-2AnswerDate RecordedPatient Health Questionnaire-2 Score0 01/06/2025CommentsYesSex and Gender InformationValueDate RecordedSex Assigned at BirthNot on fileLegal DtwFaojmr79/15/2023 11:19 PM EDTGender IdentityNot on fileSexual OrientationNot on filedocumented as of this encounter Functional Status * Over the past 2 weeks, how often have you been bothered by any of the following problems?QuestionAnswerDate of AssessmentAuthorLittle interest or pleasure in doing thingsNot at all01/06/2025 9:35 AM Petra Flores LPN Feeling down, depressed, or hopelessNot at all01/06/2025 9:35 AM Petra Flores LPNPatient Health Questionnaire-2 Wvvcs512 9:35 AM Petra Flores LPN documented as of this encounter Plan of Treatment DateTypeDepartmentCare Team (Latest Contact Info)Xndjtgpxzzz98/11/2025 9:50 AM ESTRoutine [facility] [place] [facility] [address] [facility] [address] Mya Herrmann, DO [address] [facility] [place] [address] documented as of this encounter Procedures Procedure NamePriorityDate/TimeAssociated DiagnosisCommentsUS FWHVOJ8505/10/2024 4:02 PM EST PROTEIN S-VXDIAWVXwkalmt07/11/2025 8:44 AM EST PROTEIN C-HHLQNSBOCLTspxsxk28/11/2025 8:44 AM EST FACTOR V LEIDEN IYCYABCQHzhbzpy53/11/2025 8:44 AM EST TB[facility] ANTITHROMBIN UUSRRXQBPoymcqs86/11/2025 8:44 AM EST METRO LEGFDAFSMKQRRgwovqr48/11/2025 8:44 AM EST ALL MISCELLANEOUS TTFILsasgat07/11/2025 8:44 AM EST ALL IMMUNOGLOBULIN FPegeldy03/11/2025 8:44 AM EST ALL IMMUNOGLOBULIN OEuvqjfk01/11/2025 8:44 AM EST documented in this encounter Results * US PELVIS (05/10/2024 4:02 PM EST)Anatomical RegionLateralityModalityOther Specimen (Source)Anatomical Location / LateralityCollection Method / Volume Collection TimeReceived Time05/10/2024 4:02 PM EST Narrative 05/10/2024 4:04 PM EST [facility] ?[address] ? [place] [address] ? Ultrasound Report ? Signed ? Patient: JUSTICE,MADHU S ?MR#: [id number] ?? : 1985 ?Acct:[id number] ?? Age/Sex: 38 / F ?ADM Date: ?? Loc: [facility] ??258-1 ? Attending Dr: Mya Herrmann D.O. ? Ordering Physician: Mya Herrmann D.O. ?? Date of Service: 05/10/24 ?? Procedure(s): US pelvis ?? Accession Number(s): [id number] ? cc: Mya Herrmann D.O.; PENELOPE CASAS ? [facility] ? [address] ? [place] [address] ? Patient Name: ?? MADHU RENDON ? MRN: [facility]:[id number] ? date: 1985 ?Sex: F ?? Assigned Patient Location: [facility] ?? Current Patient Location: [facility] ?? Accession/Order Number: [id number] ?? Exam Date: 05/10/2024 ??14:36 ?Report Date: [...] 1604 ? DD/ 1602 ? TD/TT: ? [facility] Attendant: Procedure Note Radiology, Radiologist, MD - 05/10/2024 [place] [address] Ultrasound Report Signed Patient: MADHU RENDON [facility]#: [id number] : 1985Acct:[id number] Age/Sex: 38 / FADM Date: Loc: [facility] 258-[address]: Mya Herrmann D.O. Ordering Physician: Mya Herrmann D.O. Date of Service: 05/10/24 Procedure(s): US pelvis Accession Number(s): [id number] cc: Mya Herrmann D.O.; PENELOPE CASAS [place] [id number] Patient Name: MADHU RENDON MRN: [facility]:[id number] date: 1985 Sex: F Assigned Patient Location: [facility] Current Patient Location: [facility] Accession/Order Number: [id number] Exam Date: 05/10/2024 14:36 Report Date: 05/10/2024 [...] M.D. Signed By:05/10/24 1604 DD/ 1602 TD/TT: [facility] Attendant: Authorizing ProviderResult TypeResult StatusCorey Montez DOCLINISYNC IMAGINGFinal Result * FACTOR V LEIDEN MUTATION (05/10/2024 8:44 AM EST)ComponentValueRef RangeTest MethodAnalysis TimePerformed AtPathologist SignatureTBH FACTOR V LEIDEN MUTATIONComment.TBHComment: Result: c.1601G>A (p.Ypq607Gqi) - Not Detected This result is not associated with an increased risk for venous thromboembolism. See Additional Clinical Information and Comments. Additional Clinical Information: Venous thromboembolism is a multifactorial disease influenced by genetic, environmental, and circumstantial risk factors. The c.1601G>A (p. Bzb425Pvu) variant in the F5 gene, commonly referred [...] c.*97G>A variant and Factor V Leiden (PMID: 36430292). Additional risk factors include but are not [...] health care providers to discuss results at [phone] ([phone]). Test Details: Variant Analyzed: c.1601G>A (p. Dix374Zco), referred to as Factor V Leiden Methods/Limitations: [...] developed and its performance characteristics determined by [employer]. It has not been cleared or approved by the Food and Drug Administration. References: Jomar S, Loren AK, Das R, Solo WW, Jose JH; ACMG Professional Practice and Guidelines Committee. Addendum: [place] [employer] consensus statement on factor V Leiden mutation testing. Nisha Med. 2020Jul 02. doi: 10.1038/i52537-882-14892-w. PMID: 82673131. Naina POWERS. Factor V Leiden Thrombophilia. 1998September 10 (Updated 2017May 03). In: Emeterio EDWARDS, Radha HH, Clayton RA, et al., editors. Cassie(Spencer) (Internet). [place] ([place]): [facility]; 0780-4040. Available from: https://www.ncbi.nlm.nih.gov/books/UCO1842/ Hudson S, Loren AK, Trent X, Margarito B, Jo-Ann EB, Lena P, Rhiannon CS; ACMG Laboratory Share Dairy Farmer Committee. Venous thromboembolism laboratory testing (factor V Leiden and factor II c.*97G>A), 2018 update: a technical standard of the [place] [employer] and Genomics (ACMG). Nisha Med. 2018 Mar;20(12):6147-7129. doi: 10.1038/a92054-790-8256-j. Epub 2017Feb 01. PMID: 25767829. TBH REVIEWED BYComment.TBHComment: Technical Component performed at [facility] Professional Component performed by: [email or web address] [facility] Rosa Isela Lee, Ph.D., [facility] Director, Molecular Genetics [address] [place] [address] Performed at: ??TG - [employer] [address] [place], [place] ??[id number] Customs Opener Verifier Packer: Kolton Storm formerly [facility], Phone: ??[phone] Specimen (Source)Anatomical Location / LateralityCollection Method / Volume Collection TimeReceived Time05/10/2024 8:44 AM EST05/10/2024 8:52 AM EST Narrative CLINISYNC - 05/15/2024 2:08 PM EST Authorizing ProviderResult TypeResult StatusCorey Montez DOLAB BLOOD ORDERABLES Final ResultPerforming OrganizationAddressCity/State/ZIP CodePhone Number [facility] * ALL MISCELLANEOUS TEST (05/10/2024 8:44 AM EST)ComponentValueRef RangeTest MethodAnalysis TimePerformed AtPathologist SignatureMISCELLANEOUS TESTCOMMENT. TBHComment: Test Ordered: [id number] , ID Ab Cytomegalovirus (CMV) Ab, IgG [...] Positive >1.1 Performed at: ??CB - [facility] [address] ??[id number] Customs Opener Verifier Packer: Dusty Miles PhD, Phone: ??[phone] Performed at: ??BN - [facility] ??[id number] Customs Opener Verifier Packer: China Ching MD, Phone: ??[phone] Specimen (Source)Anatomical Location / LateralityCollection Method / Volume Collection TimeReceived Time05/10/2024 8:44 AM EST05/10/2024 10:27 AM EST Narrative CLINISYNC - 05/13/2024 3:11 PM EST [id number] , Infectious Disease Antibody Profile Authorizing ProviderResult TypeResult StatusCorey Montez DOCLINISYNCFinal Result Performing OrganizationAddressCity/State/[facility] CodePhone Number CLINISYNC [facility] * (ABNORMAL) [facility] ANTITHROMBIN ACTIVITY (05/10/2024 8:44 AM EST)ComponentValueRef RangeTest MethodAnalysis TimePerformed AtPathologist SignatureTBH ANTITHROMBIN DRPXRUXT908(A)75 - 135 %TBHComment: An elevated antithrombin activity is of no known clinical significance. Direct Xa inhibitor anticoagulants such as rivaroxaban, apixaban and edoxaban will lead to spuriously elevated antithrombin activity levels possibly masking a deficiency. Performed at: ?? - [facility] [address] ??[id number] Customs Opener Verifier Packer: China Ching MD, Phone: ??[phone] Specimen (Source)Anatomical Location / LateralityCollection Method / Volume Collection TimeReceived Time05/10/2024 8:44 AM EST05/10/2024 8:52 AM EST Narrative CLINISYNC - 05/12/2024 2:08 PM EST Authorizing ProviderResult TypeResult StatusCorey Montez DOCLINISYNCFinal Result Performing OrganizationAddressty/State/ZIP CodePhone Number [facility] * PROTEIN S-ANTIGEN (05/10/2024 8:44 AM EST)ComponentValueRef RangeTest Method Analysis TimePerformed AtPathologist SignaturePROTEIN S, NEOLO9235 - 150 %TBH Comment: This test was developed and its performance characteristics determined by [facility]. It has not been cleared or approved by the Food and Drug Administration. PROTEIN S, BEMD98937 - 136 %TBHSpecimen (Source)Anatomical Location / Laterality Collection Method / VolumeCollection TimeReceived Time05/10/2024 8:44 AM EST 05/10/2024 9:48 AM EST Narrative CLINISYNC - 05/12/2024 2:08 PM EST Authorizing ProviderResult TypeResult StatusCorey Montez DOLAB BLOOD ORDERABLES Final ResultPerforming OrganizationAddressCity/State/[facility] CodePhone Number [facility] * PROTEIN C-FUNCTIONAL (05/10/2024 8:44 AM EST)ComponentValueRef RangeTest MethodAnalysis TimePerformed AtPathologist SignaturePROTEIN C-EZVHEPEVJS23937 - 180 %TBHComment: Performed at: ?? - [facility] ??[id number] Customs Opener Verifier Packer: China Ching MD, Phone: ??[phone] Specimen (Source)Anatomical Location / LateralityCollection Method / Volume Collection TimeReceived Time05/10/2024 8:44 AM EST05/10/2024 9:48 AM EST Narrative CLINISYNC - 05/12/2024 2:08 PM EST Authorizing ProviderResult TypeResult StatusCorey Montez DOLAB BLOOD ORDERABLES Final ResultPerforming OrganizationAddMount Nittany Medical Centerty/State/[facility] CodePhone Number [facility] * METRO HOMOCYSTEINE (05/10/2024 8:44 AM EST)ComponentValueRef [...] MethodAnalysis TimePerformed AtPathologist SignatureTBH IMMUNOGLOBULIN G, QN 701071 - 1602 mg/dLTBHComment: Performed at: ??[address] ??[id number] Customs Opener Verifier Packer: Dusty Miles PhD, Phone: ??[phone] Specimen (Source)Anatomical Location / LateralityCollection Method / Volume Collection TimeReceived Time05/10/2024 8:44 AM EST05/10/2024 8:52 AM EST Narrative CLINISYNC - 05/11/2024 7:08 AM EST Authorizing ProviderResult TypeResult StatusCorey Montez DOCLINISYNCFinal Result Performing OrganizationAddressCity/State/ZIP CodePhone Number CLINISYNC TB * ALL IMMUNOGLOBULIN M (05/10/2024 8:44 AM EST)ComponentValueRef RangeTest MethodAnalysis TimePerformed AtPathologist SignatureTBH IMMUNOGLOBULIN M, Q177 26 - 217 mg/dLTBHComment: Performed at: ??[address] ??[id number] Customs Opener Verifier Packer: Dusty Miles PhD, Phone: ??[phone] Specimen (Source)Anatomical Location / LateralityCollection Method / Volume Collection TimeReceived Time05/10/2024 8:44 AM EST05/10/2024 8:52 AM EST Narrative CLINISYNC - 05/11/2024 7:08 AM EST Authorizing ProviderResult TypeResult StatusCorey Montez DOCLINISYNCFinal Result Performing OrganizationAddlea regional medical centerCity/State/ZIP CodePhone Number CLINISYNC [facility]H documented in this encounter Visit Diagnoses Not on filedocumented in this encounter Care Teams Team MemberRelationshipSpecialtyStart DateEnd Date Penelope Casas MD [address] [place] [address] PCP - GeneralFamily Medicine11/07/23documented as of this encounter
[2025-03-02 18:19] VITALS: BP 119/63; PULSE 80
== END 2025-03-02 18:56 | disposition home or self-care (01) ==
LOC: FBCO 18:13 → FBC 18:15
PROVIDERS: Visit Provider Obstetrics & Gynecology
DX: O26.893 Other specified pregnancy related conditions, third trimester (principal); Z3A.31 31 weeks gestation of pregnancy
CPT/HCPCS: 59025

== ENCOUNTER 2025-03-05 19:04 | Outpatient (OUT) | payer MEDICAID, SELFPAY ==
--- OUTSIDE RECORDS SUMMARY | 2025-02-09 09:30 | XMS_ITS | Encounter Summary ---
Author Organization [facility] Address [address] [address] Care Team Providers Care Fire Extinguisher Charger Name Role Phone Evans Casas MD Primary Care Provider [phone] Reason for Visit * ReasonCommentsRoutine Visit Encounter Details DateTypeDepartmentCare Team (Latest Contact Info)Dfxhnhiiocf28/13/2025 10:30 AM EDTRoutine [facility] [address] [place] [phone] Wilton Herrmann DO [address] [place], [place] [id number] Third trimester ([facility] 28 weeks gestation of ([facility]); Anemia complicating childbirth ([facility]); Anticoagulant long-term use; Antiphospholipid antibody positive; Blood pressure elevated without history of HTN; Coagulation defect, unspecified ([facility]) Social History Tobacco UseTypesPacks/DayYears UsedDateSmoking Tobacco: NeverSmokeless Tobacco: NeverAlcohol UseStandard Drinks/WeekCommentsNever0 (1 standard drink = 0.6 oz pure alcohol)PHQ-2AnswerDate RecordedPatient Health Questionnaire-2 Score0 01/06/2025Estimated Date of XkjehsbrLwazimjnHrq91/05/2026ased on last menstrual period of 07/28/2024Sex and Gender InformationValueDate RecordedSex Assigned at BirthNot on fileLegal UyyCxpyju71/15/2023 11:19 PM EDTGender IdentityNot on fileSexual OrientationNot on filedocumented as of this encounter Last Filed Vital Signs Vital SignReadingTime TakenCommentsBlood Tkumnslt377/7610 10:45 AM EDT Pulse--Temperature--Respiratory Rate--Oxygen Saturation--Inhaled Oxygen Concentration--Gsnnuu90.9 kg (211 lb 6.4 oz)02/09/2025 10:45 AM [...] to check FSBS. Blood Glucose Monitoring Suppl (Vericept Glucometer) w/Device kit 1 kit, Does not [...] Diagnosis Date Noted 32 weeks gestation of ([facility]) 11/28/2019 Abdominal pain 06/12/2023 Acute bronchitis due to infection 06/12/2023 Acute on chronic vesicular eczema of hands and feet 11/15/2023 Anemia complicating childbirth ([facility]) 01/16/2020 Anticoagulant long-term use 02/22/2020 Antiphospholipid antibody positive 09/10/2017 Antiphospholipid antibody syndrome ([facility]) 07/07/2019 Anxiety 06/12/2023 Blood pressure elevated without history of HTN 11/15/2023 BMI 37.0-37.9, adult 11/15/2023 Cerebral infarction, unspecified ([facility]) 05/16/2019 Cerebrovascular accident (CVA) due to stenosis of middle cerebral artery ([facility]) 02/22/2020 Cervicalgia 02/05/2019 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 ([facility]) 01/08/2020 Coagulation defect, unspecified ([facility]) 02/05/2019 Cold intolerance 11/15/2023 Deficiency of other specified B group vitamins 05/16/2019 Deviated septum 11/15/2023 Dizziness and giddiness 02/05/2019 Dry mouth 11/15/2023 Dysfunction of eustachian tube 06/12/2023 Dyspnea 06/12/2023 Elevated blood pressure reading 11/15/2023 Encounter for supervision of normal , unspecified, first trimester ([facility]) 05/29/2019 Environmental allergies 11/15/2023 Fatigue 12/29/2016 First degree perineal laceration during delivery ([facility]) 01/16/2020 Frequency of micturition 02/19/2019 Genitourinary symptoms 08/19/2021 Gestational diabetes mellitus (GDM), antepartum ([facility]) 01/26/2022 H/O: hypothyroidism 11/15/2023 Hematochezia 06/12/2023 History [...] anemia 01/16/2020 Irregular uterine bleeding 11/15/2023 problem ([facility]) 06/12/2023 Less than 8 weeks gestation of ([facility]) 06/05/2019 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/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 02/05/2019 Migraine without aura and without status migrainosus, not intractable 09/12/2017 Morbid obesity ([facility]) 11/15/2023 Muscle fasciculation 08/19/2021 Nasal polyps 11/15/2023 Non-smoker 11/15/2023 NEETA (obstructive sleep apnea) 11/15/2023 Other acute postprocedural pain 02/03/2019 Other general symptoms and signs 10/28/2019 Other immediate hemorrhage ([facility]) 01/16/2020 Other specified noninflammatory disorders of vagina 02/21/2019 Pain in joint 12/29/2016 Palpitations 08/26/2019 Paresthesia of bilateral legs 11/15/2023 Pelvic and perineal pain 02/01/2019 Personal history of urinary (tract) infections 01/16/2020 Pre-diabetes 11/15/2023 Primary hypercoagulable state ([facility]) 08/01/2022 Pruritus, unspecified 01/02/2020 Psychogenic hyperventilation 06/12/2023 Raised antibody titer 09/25/2017 Right lower quadrant pain 11/15/2023 Right otitis externa 11/15/2023 Salivary gland swelling 11/15/2023 Single live ([facility]) 01/15/2020 Snoring 11/15/2023 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) 12/30/2019 Suspected severe acute respiratory syndrome coronavirus 2 (SARS-CoV-2) infection 06/12/2023 SVT (supraventricular tachycardia) ([facility]) 08/26/2019 Syncope and collapse 06/03/2018 Other bacterial [...] drainage of cyst WISDOM TOOTH EXTRACTION 2007 [place] teeth REVIEW OF SYSTEMS Review of Systems: [...] nursing note reviewed. Exam conducted with a captain/airline pilot present. Vitals: Estimated body mass index is 34.12 kg/m?? as calculated from the following: Height as of 11/19/23: 5' 6 . Weight as of this encounter: 211 lb 6.4 oz. BP: 124/76 Patient's last menstrual period was 07/28/2024. ASSESSMENT & PLAN ICD-10-CM 1. Third trimester ([facility]) Z34.93 2. 28 weeks gestation of ([facility]) Z3A.28 CBC and differential POCT urinalysis dipstick [...] givenorders and they were also faxed to [facility] and [facility] Scheduling. Patient to return to clinic in 2 weeks for routine OB appointment. Documented by Rosi Murray LPN on behalf of: Wilton Herrmann DO documented in this encounter Plan of Treatment DateTypeDepartmentCare Team (Latest Contact Info)Vutotkeuxqm87/11/2025 9:50 AM ESTRoutine [facility] [address] [place] [phone] Wilton Herrmann DO [address] [place] [address] NameTypePriorityAssociated DiagnosesOrder ScheduleCBC and differentialLabRoutine 28 weeks gestation of ([facility]) Ordered: 02/09/2025US OB follow up transabdominal approachImagingRoutine Third trimester ([facility]) 28 weeks gestation of ([facility]) Anemia complicating childbirth ([facility]) Anticoagulant long-term use Antiphospholipid antibody positive Blood pressure elevated without history of HTN Coagulation defect, unspecified ([facility]) Expected: 02/09/2025, Expires: 06/12/2025US biophysical profile w non stress testImagingRoutine Third trimester ([facility]) 28 weeks gestation of ([facility]) Anemia complicating childbirth ([facility]) Anticoagulant long-term use Antiphospholipid antibody positive Blood pressure elevated without history of HTN Coagulation defect, unspecified ([facility]) Expected: 02/09/2025 (Approximate), Expires: 08/10/2025documented as of this encounter Procedures Procedure NamePriorityDate/TimeAssociated DiagnosisCommentsPOCT URINALYSIS XAWBGWGFAfcapqj49/13/2025 10:55 AM EDT 28 weeks gestation of ([facility]) documented in this encounter Results * (ABNORMAL) [...] Location / LateralityCollection Method / VolumeCollection TimeReceived EnndLusdw49/13/2025 10:55 AM EDT Narrative Authorizing ProviderResult TypeResult [...] MemberRelationshipSpecialtyStart DateEnd Date Evans Casas MD [address] [place] [address] PCP - GeneralFamily Medicine11/07/23documented as of this encounter
--- OUTSIDE RECORDS SUMMARY | 2025-02-23 08:00 | XMS_ITS | Encounter Summary ---
Author Organization [facility] Address [address] [place] [address] Care Team Providers Care Property Management Bookkeeper Name Role Phone Evans Casas MD Primary Care Provider [phone] Reason for Visit * ReasonCommentsRoutine Visit Encounter Details DateTypeDepartmentCare Team (Latest Contact Info)Uxygckjqmmz12/27/2025 9:00 AM EDTRoutine [facility] [address] [place] [phone] Wilton Herrmann DO [address] [place], [place] [phone] Third trimester ([facility]); 30 weeks gestation of ([facility]) Social History Tobacco UseTypesPacks/DayYears UsedDateSmoking Tobacco: NeverSmokeless Tobacco: NeverAlcohol UseStandard Drinks/WeekCommentsNever0 (1 standard drink = 0.6 oz pure alcohol)PHQ-2AnswerDate RecordedPatient Health Questionnaire-2 Score0 01/06/2025Estimated Date of MqbqdtyiWkhirxxuVsn14/05/2026ased on last menstrual period of 07/28/2024Sex and Gender InformationValueDate RecordedSex Assigned at BirthNot on fileLegal UyfDmuhra37/15/2023 11:19 PM EDTGender IdentityNot on fileSexual OrientationNot on filedocumented as of this encounter Last Filed Vital Signs Vital SignReadingTime TakenCommentsBlood Wmmlwbhf953/7202/23/2025 9:26 AM EDT Pulse--Temperature--Respiratory Rate--Oxygen Saturation--Inhaled Oxygen Concentration--Yaneqt47.5 kg (210 lb 8 oz)02/23/2025 9:26 AM [...] to check FSBS. Blood Glucose Monitoring Suppl (D-Food [employer]ner Glucometer) w/Device kit 1 kit, Does not [...] Diagnosis Date Noted 32 weeks gestation of ([facility]) 11/28/2019 Abdominal pain 06/12/2023 Acute bronchitis due to infection 06/12/2023 Acute on chronic vesicular eczema of hands and feet 11/15/2023 Anemia complicating childbirth ([facility]) 01/16/2020 Anticoagulant long-term use 02/22/2020 Antiphospholipid antibody positive 09/10/2017 Antiphospholipid antibody syndrome ([facility]) 07/07/2019 Anxiety 06/12/2023 Blood pressure elevated without history of HTN 11/15/2023 BMI 37.0-37.9, adult 11/15/2023 Cerebral infarction, unspecified ([facility]) 05/16/2019 Cerebrovascular accident (CVA) due to stenosis of middle cerebral artery ([facility]) 02/22/2020 Cervicalgia 02/05/2019 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 ([facility]) 01/08/2020 Coagulation defect, unspecified ([facility]) 02/05/2019 Cold intolerance 11/15/2023 Deficiency of other specified B group vitamins 05/16/2019 Deviated septum 11/15/2023 Dizziness and giddiness 02/05/2019 Dry mouth 11/15/2023 Dysfunction of eustachian tube 06/12/2023 Dyspnea 06/12/2023 Elevated blood pressure reading 11/15/2023 Encounter for supervision of normal , unspecified, first trimester ([facility]) 05/29/2019 Environmental allergies 11/15/2023 Fatigue 12/29/2016 First degree perineal laceration during delivery ([facility]) 01/16/2020 Frequency of micturition 02/19/2019 Genitourinary symptoms 08/19/2021 Gestational diabetes mellitus (GDM), antepartum ([facility]) 01/26/2022 H/O: hypothyroidism 11/15/2023 Hematochezia 06/12/2023 History [...] anemia 01/16/2020 Irregular uterine bleeding 11/15/2023 problem ([facility]) 06/12/2023 Less than 8 weeks gestation of ([facility]) 06/05/2019 correction (current) use of 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/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 02/05/2019 Migraine without aura and without status migrainosus, not intractable 09/12/2017 Morbid obesity ([facility] 11/15/2023 Muscle fasciculation 08/19/2021 Nasal polyps 11/15/2023 Non-smoker 11/15/2023 NEETA (obstructive sleep apnea) 11/15/2023 Other acute postprocedural pain 02/03/2019 Other general symptoms and signs 10/28/2019 Other immediate hemorrhage ([facility]) 01/16/2020 Other specified noninflammatory disorders of vagina 02/21/2019 Pain in joint 12/29/2016 Palpitations 08/26/2019 Paresthesia of bilateral legs 11/15/2023 Pelvic and perineal pain 02/01/2019 Personal history of urinary (tract) infections 01/16/2020 Pre-diabetes 11/15/2023 Primary hypercoagulable state ([facility]) 08/01/2022 Pruritus, unspecified 01/02/2020 Psychogenic hyperventilation 06/12/2023 Raised antibody titer 09/25/2017 Right lower quadrant pain 11/15/2023 Right otitis externa 11/15/2023 Salivary gland swelling 11/15/2023 Single live ([facility]) 01/15/2020 Snoring 11/15/2023 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) 12/30/2019 Suspected severe acute respiratory syndrome coronavirus 2 (SARS-CoV-2) infection 06/12/2023 SVT (supraventricular tachycardia) ([facility]) 08/26/2019 Syncope and collapse 06/03/2018 Other bacterial infections of unspecified site 06/27/2019 Thrombocytopenia, unspecified 11/20/2019 Hypoglycemia 06/12/2023 Unspecified condition associated with female genital organs and menstrual cycle 05/09/2019 Unspecified ovarian cyst, right side 02/06/2019 Urinary tract infection 10/16/2019 Referred otalgia of right ear 11/19/2023 LPRD (laryngopharyngeal reflux disease) 11/19/2023 H/O loss 01/05/2025 Multigravida of advanced maternal age in second trimester ([facility]) 01/05/2025 Thyroid disease 01/05/2025 Resolved Ambulatory Problems [...] drainage of cyst WISDOM TOOTH EXTRACTION 2007 [place] teeth REVIEW OF SYSTEMS Review of Systems: [...] note reviewed. Exam conducted with a customer technical services manager present. Vitals: Estimated body mass index is 33.98 kg/m?? as calculated from the following: Height as of 11/19/23: 5' 6 . Weight as of this encounter: 210 lb 8 oz. BP: 116/72 Patient's last menstrual period was 07/28/2024. Assessment/Plan ICD-10-CM 1. Third trimester ([facility]) Z34.93 2. 30 weeks gestation of ([facility]) Z3A.30 POCT urinalysis dipstick manually resulted Patient [...] Plan of Treatment DateTypeDepartmentCare Team (Latest Contact Info)Tzfkrlckidg89/11/2025 9:50 AM ESTRoutine [facility] [address] [place] [phone] Wilton Herrmann DO [address] [place] [address] documented as of this encounter Procedures Procedure NamePriorityDate/TimeAssociated DiagnosisCommentsPOCT URINALYSIS KTVAKUKOHyooner58/27/2025 9:38 AM EDT 30 weeks gestation of ([facility]) documented in this encounter Results * POCT [...] Date Evans Casas MD [address] [place] [address] PCP - GeneralFamily Medicine11/07/23documented as of this encounter
--- OUTSIDE RECORDS SUMMARY | 2025-03-02 11:30 | XMS_ITS | Encounter Summary ---
Author Organization [facility] Address [address] [place] [address] Care Team Providers Care Unit Tender Name Role Phone Jonny Wilcox MD Unavailable [phone] Cosmo Elliott MD Unavailable [phone] Davida Restrepo RN Unavailable [phone] Evans Casas DO Primary Care Provider [phone] Source Comments In the event this information is protected by the Federal Confidentiality of Alcohol and Drug AbusePatient Records regulations: The Federal rules restrict any use of the information to criminally investigate or prosecute any alcohol or drug abuse patient.[facility] Reason for Visit * ReasonCommentsEstablished Patient Encounter Details DateTypeDepartmentCare Team (Latest Contact Info)Yieohevzxag01/03/2025 11:30 AM ESTVisit (SP) Office Hematology/Oncology [address] [place] [address] 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 APRN.OIL CHANGER [address] [place] [address] Antiphospholipid antibody positive (Primary Dx); Iron deficiency anemia secondary to blood loss (chronic); Vitamin D deficiency; Primary hypercoagulable state (HCC); CVA, old, speech/language deficit; Gestational diabetes mellitus (GDM) in third trimester, gestational diabetes method of control unspecified (HCC); History of hemorrhage; Anemia complicating , third trimester (HCC) Social History Tobacco UseTypesPacks/DayYears UsedDateSmoking Tobacco: NeverSmokeless Tobacco: NeverAlcohol UseStandard Drinks/WeekCommentsNo0 (1 standard drink = 0.6 oz pure alcohol)PHQ-2AnswerDate RecordedPHQ-2 [id number] Deprivation Index AnswerDate RecordedNational Score (1-100), lower number is lower risk58 09/28/2022State Score (1-10), lower number is lower [id number] from: https://www.neighborhoodatlas.[facility].edu/. Last address [facility] for [facility]Estimated Date of DeliveryCommentsYes 07/28/2024Sex and Gender InformationValueDate RecordedSex Assigned at BirthNot on fileLegal UbnRvmiul36/29/2018 10:06 AM ESTGender IdentityNot on fileSexual OrientationNot on fileOccupationIndustryJob Start DateJob End Datestay at home momNot on fileNot on fileNot on filedocumented as of this encounter Last Filed Vital Signs Vital SignReadingTime TakenCommentsBlood Jrqdrwak065/7911 11:56 AM EST Vifeo591403/02/2025 11:56 AM APSFobpblkcsyn08.2 ??C (97.2 ??F)03/02/2025 11:56 AM ESTRespiratory Usoi097505/02/2024 11:56 AM ESTOxygen Bkwvarusic56%03/02/2025 11:56 AM ESTInhaled Oxygen Concentration--Rlkiog90.2 kg (214 lb 4.6 oz)03/02/2025 11:56 AM ESTHeight--Body Mass Index34.5608 11:34 AM EDTdocumented in this encounter Progress Notes * 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 APRN.OIL CHANGER - 03/02/2025 12:07 PM EST Images from the original note were not included. NAME: Sanna Bone CLINIC NO.: [id number] DATE OF SERVICE: March 02, 2025 (Arsh) Some elements in this clinic note that are critical to medical decision making have been carefully reviewed and included from a prior clinic note dated: December 23, 2024 (Arsh) Additional Clinicians involved in Sanna Bone's care: Drs. Herrmann, Jorge Osorio, Humaira Gaviria, CC: Hypercoag state CASE SUMMARY / ASSESSMENT: 39 year old woman presents with a prior history of CVA in 2016 and an antiphospholipid antibody that was identified much later in 2018. These were found in [place], [place]. I don't have access to these [...] After discussion with her neurologist, Dr. Jorge Osorio, we put her on prophylactic dose Lovenox throughout her prior but is now again and at 25 weeks. Had difficulty with associated diabetes. Recalls having had a target-like rash shortly before presenting to [facility] in 2015 with headaches and was [...] 2024. SUMMARIZED PLAN OF CARE: Continue Lovenox Saw DIGITAL FIELD SERVICE TECHNICIAN and patient increased Lovenox to 40 mg twice daily after additional recommendation Continue B12 RTC in 4 weeks Labs same day to include iron studies ___ HPI: Updated Visit, March 02, 2025: The patient is a 39-year-old female with a history of anemia, hemorrhage, and gestational diabetes,presenting for follow-up during . The patient has a history of anemia and hemorrhage with prior pregnancies. She required a blood transfusion after delivery of her first son due to hemorrhage, and hemorrhaged during delivery of her middle daughter. Prior to delivery of her youngest daughter, she received iron infusions and did not hemorrhage during that . She also has a history of gestational diabetes with her youngest daughter, which resolved after delivery. She is currently with a male fetus, due 05/04, with possible induction planned for 04/17 or 04/18 due to concerns about placental function. She reports the fetus is very active and she is undergoing twice-weekly NSTs and weekly ultrasounds. She reports fatigue, which she attributes to . She is currently on metformin and checking blood glucose 4 times daily. She was previously on Lantus, which was discontinued due to a possible allergy to one of the ingredients. She has been advised to try NPH insulin if her blood sugar worsens, but she is nervous about a potential allergic reaction and has been instructed to be prepared to go to the ER if she tries it. She is also on a blood thinner, Lovenox, which she is taking twice daily, 12 hours apart. She recently experienced weakness and a low-grade fever for 2-3 days after doubling her blood thinner dose, but she continued taking it as prescribed. She reports that her and 17-year-old child also developed fevers around the same time, and she believes her symptoms were likely due to a viral illness rather than the medication. Updated Visit, December 23, 2024: Patient is [...] g/dL today. Platelet count is stable at 260,000/??L, and white blood cell count is within normal limits. Previous vitamin D level was32.1 ng/mL. She is currently taking vitamins. Updated [...] subsided, she still plans to see Dr. Osorio soon. When she hada stroke in [place], she had symptoms up to a month before: uncontrollable headache, BP was elevated, knee stiffness, and blurry vision. Right facial drooping [facility]. Updated [...] and stayed on Lovenox Hgb 13.1 @ [facility] Recommended ER if persisting bleeding [...] is otherwise getting along very well. Sanna Bone is a 35-year-old woman with a history [...] and at age 69. Both lived in [facility] but she was adopted. She was not able to see ID in October and will be seeing Dr. Baugh next week. Also will have her see Dr. Hamlin for her clotting disorder and make any other recommendations to optimize her treatment. Updated Visit, October 08, 2020: Telephone only Received call from pt stating she was seen in [facility] ER for numbness in her chest, throat, and extremities, and sob which has been worsening over the last week. We arranged a telephone visit for her toreview questions with me. Sanna Bone is a 34 year old female seen for Hypercoagulable state and recent concerns and symptoms that required her to be seen at [facility] ER. She went to the ER with Gradual worsening of breathing after progressive tingling of fingers and legs. She currently remains very fatigued even though she is sleeping well. Now recalls that before her stroke she remembers having a bull's eye rash and was seen with severe headaches in [place], [place] - was found to have a [...] a root canal and was sent to [facility] for MRI which was negative [...] DOAC. Initial Visit, May 19, 2019: Sanna Bone presents today at the request of Dr. Herrmann for oncology evaluation. She is a 33 year old female who is currently on Plavix for CVA prophylaxis and is been referred for opinion regarding changing over to Lovenox due to her underlying findings of antiphospholipid antibodies. Her history goes back to January 2016 in [facility] where she had persisting headaches and slurred speech followed by lower extremity weakness. This took a few months to resolve and she is back to her normal state of being but some point in time during her her next she was seen by Dr. Pascual Hyde in [place] as well and was found to have [...] PERFORMANCE STATUS: 0 PHYSICAL EXAMINATION: Vitals: BP 133/79 Pulse 73 Temp (Src) 97.2 (Temporal) Resp 16 Wt 214 lb 4.6 oz (97.2kg) SpO2 98% LMP 10/28/2024 Body surface area is 2.13 meters squared. Exam limited to gross visualization where appropriate. Gen.: This is an age-appropriate patient in no acute distress. Head: Appears atraumatic with no visible lesions. Eyes: Pupils equally round and reactive to light, extraocular muscles are intact. Neck: Supple. Respiratory: Appears to be respiring comfortably. Neurologic: Nonfocal to gross visualization. Alert and oriented ??3. Psychiatric: No evidence of inappropriate anxiety or [...] INJECT 1 SYRINGE SUBCUTANEOUSLY EVERY 24 HOURS (Patient taking differently: every 12 hours. INJECT 1 SYRINGE SUBCUTANEOUSLY EVERY 24 HOURS) progesterone vaginal suppository 200 mg (CPD) Use 200 mg vaginally. Unwrap and insert as directed. polyethylene glycol 3350 (MIRALAX PO) Take by mouth. docusate sodium (COLACE PO) Take by mouth. metFORMIN ER (GLUCOPHAGE XR) 500 mg 24 hr tablet multivitamin tablet Take 1 tablet by mouth once daily. LABORATORY VALUES: WBC (k/uL) Date Value 03/02/2025 8.64 RBC (m/uL) Date Value 03/02/2025 3.71 (L) Hemoglobin (g/dL) Date Value 03/02/2025 11.6 Hematocrit (%) Date Value 03/02/2025 33.0 (L) MCV (fL) Date Value 03/02/2025 88.9 MCH (pg) Date Value 03/02/2025 31.3 MCHC (g/dL) Date Value 03/02/2025 35.2 RDW-CV (%) Date Value 03/02/2025 13.3 Platelet Count (k/uL) Date Value 03/02/2025 257 MPV (fL) Date Value 03/02/2025 9.4 Glucose (mg/dL) Date Value 03/02/2025 71 (L) BUN (mg/dL) Date Value 03/02/2025 9 Creatinine (mg/dL) Date Value 03/02/2025 0.54 (L) Sodium (mmol/L) Date Value 03/02/2025 131 (L) Potassium (mmol/L) Date Value 03/02/2025 3.9 Chloride (mmol/L) Date Value 03/02/2025 97 (L) CO2 (mmol/L) Date Value 03/02/2025 21 (L) Protein, Total (g/dL) Date Value 03/02/2025 7.2 Albumin (g/dL) Date Value 03/02/2025 4.1 Calcium, Total (mg/dL) Date Value 03/02/2025 10.3 (H) Alkaline Phosphatase (U/L) Date Value 03/02/2025 64 Bilirubin, Total (mg/dL) Date Value 03/02/2025 0.2 AST (U/L) Date Value 03/02/2025 12 (L) ALT (U/L) Date Value 03/02/2025 10 DIAGNOSIS: (R76.0) Antiphospholipid antibody positive (primary encounter [...] which included preparing to see the patient, qggc-ta-ysvb patient care, completing clinical documentation, obtaining and/or reviewing separately obtained history, performing a medically appropriate examination, counseling and educating the pat ient/family/caregiver, ordering medications, tests, or procedures, independently interpreting results (not separately reported), and communicating results to the patient/family/caregiver. 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 APRN.TOR Hematology and Oncology Services Provided at: [place], [place] CC: MD Wilton Day, [address] [place] [address] Humaira Gaviria MD [address] [place] [address] MD Cosmo Kingston MD Michael [place], MD documented in this encounter Plan of Treatment DateTypeDepartmentCare Team (Latest Contact Info)Uoqatktmnrn11/01/2025 8:00 AM ESTOffice Visit [facility] [address] [place] [address] [place] [address] Return in 4 weeks lab and possible iron03/30/2025 8:20 AM ESTVisit (SP) Office Hematology/Oncology [address] [facility] [place] [address] Salvador Dos Santos MD [address] [place] [address] [place] [address] Return in 4 weeks lab and possible iron03/30/2025 8:30 AM ESTInfusion Center Hematology/Oncology [address] [place] [address] [place] [address] Return in 4 weeks lab and possible ironNameTypePriorityAssociated DiagnosesOrder ScheduleCOMPLETE BLOOD COUNT AND DIFFERENTIALLabRoutine 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) Vitamin D deficiency Primary hypercoagulable state (HCC) CVA, old, speech/language deficit Expected: 03/30/2025, Expires: 06/29/2025OMPREHENSIVE METABOLIC PANELLabRoutine 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) Vitamin D deficiency Primary hypercoagulable state (HCC) CVA, old, speech/language deficit Expected: 03/30/2025, Expires: 06/29/2025FERRITINLabRoutine 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) Vitamin D deficiency Primary hypercoagulable state (HCC) CVA, old, speech/language deficit Expected: 03/30/2025, Expires: 06/29/2025IRON AND TIBCLabRoutine 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) Vitamin D deficiency Primary hypercoagulable state (HCC) CVA, old, speech/language deficit Expected: 03/30/2025, Expires: 06/29/2025documented as of this encounter Visit Diagnoses Diagnosis Antiphospholipid antibody positive- Primary Other and unspecified nonspecific immunological findings Iron deficiency anemia secondary to blood loss (chronic) Vitamin D deficiency Unspecified vitamin D deficiency Primary hypercoagulable state (HCC) Primary hypercoagulable state CVA, old, speech/language deficit Speech and language deficit, unspecified, late effect of cerebrovascular disease Gestational diabetes mellitus (GDM) in third trimester, gestational diabetes method of control unspecified (HCC) History of hemorrhage Personal history of diseases of blood and blood-forming organs Anemia complicating , third trimester (HCC) documented in this encounter Care Teams Team MemberRelationshipSpecialtyStart DateEnd Date Evans Casas DO [address] [place] [address] PCP - GeneralFamily Chdqazpa17/3/22 Jonny Wilcox MD [address] [place] [address] Primary Staff PhysicianCardiology07/16/18 [place] [address] [place] [address] PhysicianHematology/Oncology09/14/21 Davida Restrepo, RN [address] [place], [place] [id number] Specialty Care CoordinatorHematology/Oncology09/14/21documented as of this encounter
--- OUTSIDE RECORDS SUMMARY | 2025-03-05 19:09 | XMS_ITS | Encounter Summary ---
Author Organization [facility] Address [address] [facility] [place] [address] Care Team Providers Care Gusset Ripper Name Role Phone Evans Casas MD Primary Care Provider [phone] Encounter Details DateTypeDepartmentCare Team (Latest Contact Info)Pvrcijevpnj18/05/2025bstract NOMJaylan COLVIN [address] [place] [address] Wilton Herrmann DO [address] June [place], [facility] Social History Tobacco UseTypesPacks/DayYears UsedDateSmoking Tobacco: NeverSmokeless Tobacco: NeverAlcohol UseStandard Drinks/WeekCommentsNever0 (1 standard drink = 0.6 oz pure alcohol)PHQ-2AnswerDate RecordedPatient Health Questionnaire-2 Score0 03/03/2025Estimated Date of WtirhzieQousheeiRrv22/05/2026ased on last menstrual period of 07/28/2024Sex and Gender InformationValueDate RecordedSex Assigned at BirthNot on fileLegal YanHipanu65/15/2023 11:19 PM EDTGender IdentityNot on fileSexual OrientationNot on filedocumented as of this encounter Plan of Treatment DateTypeDepartmentCare Team (Latest Contact Info)Beveqzirlzp16/11/2025 9:50 AM ESTRoutine NOMJaylan COLVIN [address] [place] [address] Wilton Herrmann [address] [place] [address] documented as of this encounter Visit Diagnoses Not on filedocumented in this encounter Care Teams Team MemberRelationshipSpecialtyStart DateEnd Date Evans Casas MD [address] [place] [address] PCP - GeneralFamily Medicine11/07/23documented as of this encounter
--- OUTSIDE RECORDS SUMMARY | 2025-03-05 19:09 | XMS_ITS | Encounter Summary ---
Author Organization [facility] tem Address [facility] [address] [place] [address] Care Team Providers Care Cap Sewer Name Role Phone Augusto Evans Tony DO Primary Care Provider [phone] Encounter Details DateTypeDepartmentCare Team (Latest Contact Info)Ueeyowbmfkm88/23/2025Orders Only [facility], A Department of [address] [address] Ref Prov, [place] [address] Social History Tobacco UseTypesPacks/DayYears UsedDateSmoking Tobacco: NeverSmokeless Tobacco: NeverAlcohol UseStandard Drinks/WeekCommentsNot Currently0 (1 standard drink = 0.6 oz pure alcohol)ChildcareAnswerDate XshwdehiEauwvzavoDnnpcxy56/31/2019 EmploymentAnswerDate EchycbriEphzbjxqrtQarrceo90/31/2019Hunger ScreeningAnswer Date RecordedWithin the past 12 months we worried whether our food would run out before we got money to buy more.Never True01/01/2025Within the past 12 months the food we bought just didn't last and we didn't have money to get more.Never True01/01/2025Purpose - LifeAnswerDate RecordedPurpose and direction in life Fuefgcz19/11/2021Estimated Date of HboecuusKtaijjmxQmc04/05/2026Based on last menstrual period of 07/28/2024Sex and Gender InformationValueDate Recorded Sex Assigned at BirthNot on fileLegal DrpTzdymo53/31/2019 12:25 PM EDTGender IdentityNot on fileSexual OrientationNot on filedocumented as of this encounter Plan of Treatment DateTypeDepartmentCare Team (Latest Contact Info)Mjyuzyoonri61/11/2025 8:00 AM ESTTelemedicine Maternal- Medicine at [facility] [address] [place] [address] Sana Palma MD [address] [place] [address] 03/17/2025 8:30 AM ESTTelemedicine [facility], A Department of [address] [address] Sam Callahan MD [address] [address] documented as of this encounter Procedures Procedure NamePriorityDate/TimeAssociated DiagnosisCommentsEXTERNAL LAB ORDERS / WUNOPIWZkpvlmm35/23/2025 3:15 PM EDTEXTERNAL LAB ORDERS / RESULTSRoutine [...]
--- OUTSIDE RECORDS SUMMARY | 2025-03-05 19:09 | XMS_ITS ---
Author Organization [facility] Address [address] [place] [address] Care Team Providers Care Database Development Project Manager Name Role Phone Evans Casas MD Primary Care Provider [phone] [facility] ([facility]) Status:Closed (Closed) Start date:12/03/2024 Enrollment date:12/08/2024 Enrollment reason:Identified by Health Plan End date:03/03/2025 Close reason:No longer wishes to participate in care management Continued Care and Services Coordination
--- OUTSIDE RECORDS SUMMARY | 2025-03-05 19:09 | XMS_ITS | Encounter Summary ---
Author Organization [facility] Address [address] [facility] [place] [address] Care Team Providers Care Manpower Development Manager Name Role Phone Evans Casas MD Primary Care Provider [phone] Encounter Details DateTypeDepartmentCare Team (Latest Contact Info)Rtgghhsjgua55/24/2025linisync Result Encounter [facility] External Department Unsolicited Mya Herrmann DO [address] [place] [address] Social History Tobacco UseTypesPacks/DayYears UsedDateSmoking Tobacco: NeverSmokeless Tobacco: NeverAlcohol UseStandard Drinks/WeekCommentsNever0 (1 standard drink = 0.6 oz pure alcohol)PHQ-2AnswerDate RecordedPatient Health Questionnaire-2 Score0 01/06/2025Estimated Date of EezikuzxOmxvxtiaZuv81/05/2026ased on last menstrual period of 07/28/2024Sex and Gender InformationValueDate RecordedSex Assigned at BirthNot on fileLegal NuvOdjuwd75/15/2023 11:19 PM EDTGender IdentityNot on fileSexual OrientationNot on filedocumented as of this encounter Plan of Treatment DateTypeDepartmentCare Team (Latest Contact Info)Bhrxcsrqmld99/11/2025 9:50 AM ESTRoutine [facility] [place] [address] [place] [phone] Mya Herrmann DO [address] [place] [address] documented as of this encounter Procedures Procedure NamePriorityDate/TimeAssociated DiagnosisCommentsUS OB BPP W NON-GXWMKE5902/20/2025 8:37 AM EDT documented in this encounter Results * US OB BPP W NON-STRESS (02/20/2025 8:37 AM EDT)Anatomical Region LateralityModalityOtherSpecimen (Source)Anatomical Location / Laterality Collection Method / VolumeCollection TimeReceived Time02/20/2025 8:37 AM EDT Narrative 02/20/2025 8:[address] [facility] ?[address] ? [place], [place] [address] ? Ultrasound Report ? Signed ? Patient: SANNA RENDON S ?MR#: [id number] ?? : 1985 ?Acct:[id number] ?? Age/Sex: 39 / F ?ADM Date: 02/19/25 ?? Loc: US ? Attending Dr: Mya Herrmann D.O. ? Ordering Physician: Mya Herrmann D.O. ?? Date of Service: 02/19/25 ?? Procedure(s): US OB BPP w non-stress ?? Accession Number(s): [id number] ? cc: Mya Herrmann D.O.; Physician,Non-Staff M.D. ? [facility] ? [address] [facility] ? [place] [address] ? Patient Name: ?? SANNA RENDON ? MRN: [facility]:[id number] ? date: 1985 ?Sex: F ?? Assigned Patient Location: LAB ?? Current Patient Location: ? Accession/Order Number: [id number] ?? Exam Date: 02/19/2025 ??19:47 ?Report Date: [...] M.D. ??02/20/2025 8:37 AM ? Dictation Location: [facility]--02 ? Electronically authenticated by: [id number] ??Y ?? Date: 02/20/2025 ??08:37 ? Dictated By: ?Pamela Pisano M.D. ? Signed By: ?02/20/25 0840 ? DD/ 0837 ? TD/TT: ? Community Health Nurse Staff: Procedure Note Radiology, Radiologist, MD - 02/20/2025 [place] [address] Ultrasound Report Signed Patient: SANNA RENDON [facility]#: [id number] : 1985Acct:[id number] Age/Sex: 39 / FADM Date: 02/19/25 Loc: US Attending Dr: Mya Herrmann D.O. Ordering Physician: Mya Herrmann D.O. Date of Service: 02/19/25 Procedure(s): US OB BPP w non-stress Accession Number(s): [id number] cc: Mya Herrmann D.O.; Physician,Non-Staff M.[place] [address] Patient Name: SANNA RENDON MRN: [facility]:[id number] date: 1985 Sex: F Assigned Patient Location: LAB Current Patient Location: Accession/Order Number: [id number] Exam Date: 02/19/2025 19:47 Report Date: 02/20/2025 [...] NORMAL BIOPHYSICAL PROFILE Impression dictated by: Pamela Pisaon M.D. 02/20/2025 8:37 AM Dictation Location: [place] [address] Electronically authenticated by: [id number] Y Date: 508:37 Dictated By: Pamela Pisano M.D. Signed By:02/20/25839 DD/ 6 TD/TT: Community Health Nurse Staff: Authorizing ProviderResult TypeResult StatusCorey Montez DOCLINISYNC IMAGINGFinal Result documented in this encounter Visit Diagnoses Not on filedocumented in this encounter Care Teams Team MemberRelationshipSpecialtyStart DateEnd Date Evans Casas MD [address] [place] [address] PCP - GeneralFamily Medicine11/07/23documented as of this encounter
--- OUTSIDE RECORDS SUMMARY | 2025-03-05 19:09 | XMS_ITS | Clinical Summary ---
Author Organization [facility] Address [address] [place] [address] Care Team Providers Care Professor Of Fine Art Name Role Phone Jonny Wilcox MD Unavailable [phone] Cosmo Elliott MD Unavailable [phone] Davida Restrepo RN Unavailable [phone] Evans Casas DO Primary Care Provider [phone] Allergies Active AllergyReactionsCriticalityNoted DateCommentsCiprofloxacinOther: See Comments,Elqibwk5805/19/2019 Dizziness, weakness sweating Ciprofloxacin-FluocinoloneOther: See Jqrkpdcv43/20/2020 Dizziness, weakness sweating LactalbuminUnknown,GI VzqilDnr77/26/2018 Crampy and gassy LactoseGI Upset09/10/2017 Diarrhea MilkOther: See VkjvbuhvEfk73/26/2018 Crampy and gassy Diarrhea Other reaction(s): GI Upset Crampy and gassy Milk Containing Products (Dairy)Other: See NmffpdpfOla71/26/2018 Crampy and gassy Diarrhea Other reaction(s): GI Upset Crampy and gassy Seasonal AllergiesGI Upset,Other: See Lqvaxjge20/06/2021 Medications MedicationSigDispense QuantityRefillsLast FilledStart DateEnd DateStatus multivitamin [...] SUBCUTANEOUSLY EVERY 24 HOURS 90 mL 10/29/2024tive Additional Information Patient taking differently: EVERY 12 HOURS, INJECT 1 SYRINGE SUBCUTANEOUSLY EVERY 24 HOURS, Reported on 03/02/2025 levothyroxine (SYNTHROID) 25 mcg tablet TAKE 1 TABLET BY MOUTH IN THE MORNING BEFORE MEAL(S)Active Active Problems ProblemNoted DateDiagnosed DateAntiphospholipid antibody hvbepcaq86/29/2025 Vitamin D rxocnmibke31/29/2025Primary hypercoagulable state08/01/2022VA, old, speech/language jsextzm0808/01/2022Iron deficiency anemia secondary to blood loss (chronic)03/27/2022Iron deficiency anemia of wtwizbrhu26/28/2022nti-cardiolipin antibody weyhddcx22/29/2018Migraine with aura and without status migrainosus, not /16/2018Antiphospholipid antibody fzehjwws79/14/2018Fatigue 12/29/2016Pain in joint12/29/2016Estimated Date of DeliveryCommentsYes 07/28/2024 Encounters DateTypeDepartmentCare HirdElmtozhfgja56/03/2025 11:30 AM ESTVisit (SP) Office Hematology/Oncology [address] [place] [address] [place] [address] 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 APRN.SYSTEM INTEGRATION ENGINEER Antiphospholipid antibody positive (Primary Dx); Iron deficiency anemia secondary to blood loss (chronic); Vitamin D deficiency; Primary hypercoagulable state (HCC); CVA, old, speech/language deficit; Gestational diabetes mellitus (GDM) in third trimester, gestational diabetes method of control unspecified (HCC); History of hemorrhage; Anemia complicating , third trimester (HCC)03/02/20258676Mcewsu87/02/2025 Telephone Hematology/Oncology [address] [place] [address] [place] [address] Rachael Johnson RN Kgkgjvd3601/26/2025Telephone Hematology/Oncology [address] [place] [address] [place] [address] Rachael Johnson RN 12/23/2024 11:30 AM EDTVisit (SP) Office Hematology/Oncology [address] [place] [address] [place] [address] 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 APRN.SYSTEM INTEGRATION ENGINEER Antiphospholipid antibody positive (Primary Dx); Iron deficiency [...] drink = 0.6 oz pure alcohol)PHQ-2AnswerDate RecordedPHQ-2 vngqo6064Area Deprivation Index AnswerDate RecordedNational Score (1-100), lower number is lower risk58 09/28/2022State Score (1-10), lower number is lower fviv6353Data from: https://www.neighborhoodatlas.medicine.[facility].edu/. Last address used for [address]Estimated Date of DeliveryCommentsYes 07/28/2024Sex and Gender InformationValueDate RecordedSex Assigned at BirthNot on fileLegal LxtFcbary19/29/2018 10:06 AM ESTGender IdentityNot on fileSexual OrientationNot on fileOccupationIndustryJob Start DateJob End Datestay at home momNot on fileNot on fileNot on file Last Filed Vital Signs Vital SignReadingTime TakenCommentsBlood Jthvmvzq670/7911 11:56 AM EST Oxsjo639303/02/2025 11:56 AM BPLEdnarinqqza76.2 ??C (97.2 ??F)03/02/2025 11:56 AM ESTRespiratory Tkfz294205/02/2024 11:56 AM ESTOxygen Pddkitsqgl79%03/02/2025 11:56 AM ESTInhaled Oxygen Concentration--Niptew41.2 kg (214 lb 4.6 oz)03/02/2025 11:56 AM EOSAfvxfd404.7 cm (5' 6.02 )12/23/2024 11:34 AM EDTBody Mass Index34.56 12/23/2024 11:34 AM EDT Plan of Treatment DateTypeDepartmentCare Team (Latest Contact Info)Haqqulsjpvs46/01/2025 8:00 AM ESTOffice Visit [facility] [address] [place] [address] [place] [address] Return in 4 weeks lab and possible iron03/30/2025 8:20 AM ESTVisit (SP) Office Hematology/Oncology [address] [place] [address] [place] [address] Salvador Dos Santos MD [address] [place] [address] [place] [address] Return in 4 weeks lab and possible iron03/30/2025 8:30 AM [facility]In[facility] [address] [place] [address] [place] [address] Return in 4 weeks lab and possible ironHealth MaintenanceDue DateLast Done CommentsAnxiety Vgembxdot34/24/2004Depression Mpbdgxodq62/24/2004HIV Screening 10/22/2003Hepatitis C Gsytvpvcx74/24/2004Hepatitis B Vaccine (1 of 3 - 19+ 3- dose series)2004HPV Vaccine (1 - 3-dose SCDM series)2012Cervical Cancer Cxpmvtbwn44/10/2017DTaP,Tdap,Td Vaccine (2 - Td or Tdap) Covid-19 Vaccine ( - season)2024Influenza Vaccine (#1) (Patient/Parent/Guardian Counseled and Declines)RSV Vaccine (1 - 1-dose 75+ series)2060 Procedures Procedure NamePriorityDate/TimeAssociated DiagnosisCommentsCOMPREHENSIVE METABOLIC NKNCDEoyvsmu57/03/2025 11:40 AM EST 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) Vitamin D deficiency Primary hypercoagulable state (HCC) CBC + NLXGVhxyiei11/03/2025 11:40 AM EST 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) Vitamin D deficiency Primary hypercoagulable state (HCC) VITAMIN D 25 RBJNROBIqcumdr11/03/2025 11:40 AM EST 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) Vitamin D deficiency VITAMIN B12 HJTFJUvhmhyq90/26/2025 11:28 AM EDT Primary hypercoagulable state (HCC) CVA, old, speech/language deficit Cerebral hyponatremia Personal history of TIA (transient ischemic attack) IRON + BPMPNmsuyie92/26/2025 11:28 AM EDT Primary hypercoagulable state (HCC) CVA, old, speech/language deficit Cerebral hyponatremia Personal history of TIA (transient ischemic attack) FERRITIN KKLVmjthwg07/26/2025 11:28 AM EDT Primary hypercoagulable state (HCC) CVA, old, speech/language deficit Cerebral hyponatremia Personal history of TIA (transient ischemic attack) COMPREHENSIVE METABOLIC MORGTUhyqucx12/26/2025 11:28 AM EDT Primary hypercoagulable state (HCC) CVA, old, speech/language deficit Cerebral hyponatremia Personal history of TIA (transient ischemic attack) CBC + XDMCNihqvxk40/26/2025 11:28 AM EDT Primary hypercoagulable state (HCC) CVA, old, speech/language deficit Cerebral hyponatremia Personal history of TIA (transient ischemic attack) from Last 3 Months Results * VITAMIN D 25 HYDROXY (03/02/2025 11:40 AM EST)ComponentValueRef RangeTest MethodAnalysis TimePerformed AtPathologist SignatureVitamin D 25 Ciojiqg58.6 31.0 - 80.0 ng/mL03/02/2025 9:47 PM ESTDAY[facility] MAIN LABSpecimen (Source)Anatomical Location / LateralityCollection Method / VolumeCollection TimeReceived TimeBloodBLOOD SPECIMEN / UnknownVenipuncture / Iwdilpt7003/02/2025 11:40 AM EST03/02/2025 11:41 AM EST Narrative Authorizing ProviderResult TypeResult StatusHolly Arsh OCHOACNPLABORATORY Final ResultPerforming OrganizationAddressCity/State/ZIP CodePhone Number [facility] [address] * (ABNORMAL) COMPREHENSIVE METABOLIC PANEL (03/02/2025 11:40 AM EST) Only the most recent of2 resultswithin the time period is included. ComponentValueRef RangeTest MethodAnalysis TimePerformed AtPathologist Signature Protein, Total7.26.3 - 8.0 g/dL03/02/2025 2:01 PM ESTNOR[facility] LABAlbumin4.13.9 - 4.9 g/dL03/02/2025 2:01 PM ESTNORTHCOAST [facility] LABCalcium, Total10.3(H)8.5 - 10.2 mg/dL03/02/2025 2:01 PM EST [facility] LABBilirubin, Total0.20.2 - 1.3 mg/dL 03/02/2025 2:01 PM ESTNORTHCOAST [facility] LABAlkaline Phosphatase 6434 - 123 U/L105/02/2024 2:01 PM ESTNORTHCFORMERLY [facility] YXNWEM24 (L)13 - 35 U/L105/02/2024 2:01 PM ESTNORTHCFORMERLY [facility] UGQEZB699 - 38 U/L105/02/2024 2:01 PM [facility] RVIGsliret92(L) 74 - 99 mg/dL03/02/2025 2:01 PM [facility] LABComment: The [place] [employer] (ADA) provides [...] 1). BUN97 - 21 mg/dL03/02/2025 2:01 PM [facility] LAB Creatinine0.54(L)0.58 - 0.96 mg/dL03/02/2025 2:01 PM [facility] HYNShmvcn219(L)136 - 144 mmol/L105/02/2024 2:01 PM [facility] LABPotassium3.93.7 - 5.1 mmol/L105/02/2024 2:01 PM [facility] KASIyuursfs58(L)98 - 107 mmol/L105/02/2024 2:01 PM [facility] ULFUD583(L)22 - 30 mmol/L105/02/2024 2:01 PM [facility] LABAnion Vjd970 - 15 mmol/L105/02/2024 2:01 PM [facility] LABEstimated Glomerular Filtration Ihcg174>=60 mL/min/1.73m 03/02/2025 2:01 PM [facility] LABComment:Estimated Glomerular Filtration Rate (eGFR) is calculated [...] VolumeCollection TimeReceived TimeBloodBLOOD SPECIMEN / UnknownVenipuncture / Cqhspwp6903/02/2025 11:40 AM EST03/02/2025 11:41 AM EST Narrative Authorizing ProviderResult TypeResult StatusHolly Arsh HATAHWAYN.CNPLABORATORY Final ResultPerforming OrganizationAddressCity/State/ZIP CodePhone Number [facility] [address] [place] [address] * (ABNORMAL) COMPLETE BLOOD COUNT AND DIFFERENTIAL (03/02/2025 11:40 AM EST) Only the most recent of2 resultswithin the time period is included. ComponentValueRef RangeTest MethodAnalysis TimePerformed AtPathologist Signature WBC8.643.70 - 11.00 k/uL03/02/2025 11:50 AM ESTNORTUNIVERSITY OF [facility] LABRBC3.71(L)3.90 - 5.20 m/uL03/02/2025 11:50 AM [facility] YRIAfyrzwdqiy80.611.5 - 15.5 g/dL03/02/2025 11:50 AM [facility] GBMOyisbgipxl39.0(L)36.0 - 46.0 %03/02/2025 11:50 AM EST [facility] JDBKYO85.980.0 - 100.0 fL03/02/2025 11:50 AM ESTNORTUNIVERSITY [facility] BEQMZU44.326.0 - 34.0 pg03/02/2025 11:50 AM ESTNORTHCFORMERLY [facility] PBUKFSC15.230.5 - 36.0 g/dL03/02/2025 11:50 AM [facility]UN[facility] LABRDW-CV13.311.5 - 15.0 %03/02/2025 11:50 AM [facility] LABPlatelet Sgwit472326 - 400 k/uL 03/02/2025 11:50 AM [facility] LABMPV9.49.0 - 12.7 fL 03/02/2025 11:50 AM [facility] LABNeutrophils %64.5% 03/02/2025 11:50 AM [facility] LABAbs Neut5.571.45 - 7.50 k/uL03/02/2025 11:50 AM [facility] LABLymphocytes %26.7%03/02/2025 11:50 AM [facility] LABAbs Lymph2.31 1.00 - 4.00 k/uL03/02/2025 11:50 AM [facility] LAB Monocytes %7.3%03/02/2025 11:50 AM [facility] LABAbs Mono0.63<0.87 k/uL03/02/2025 11:50 AM [facility] LAB Eosinophils %0.7%03/02/2025 11:50 AM [facility] LABAbs Eosin0.06<0.46 k/uL03/02/2025 11:50 AM [facility] LAB Basophils %0.3%03/02/2025 11:50 AM [facility] LABAbs Baso0.03<0.11 k/uL03/02/2025 11:50 AM [facility] LAB Immature Granulocytes %0.5%03/02/2025 11:50 AM [facility] LABAbs Immature Gran0.04<0.10 k/uL03/02/2025 11:50 AM [facility] LABNRBC0.0/100 WBC03/02/2025 11:50 AM ESTNOR[facility] LABAbsolute nRBC<0.01<0.01 k/uL03/02/2025 11:50 AM EST [facility] LABDiff WwlxIhey48/03/2025 11:50 AM EST [facility] LABSpecimen (Source)Anatomical Location / LateralityCollection Method / VolumeCollection TimeReceived TimeBloodBLOOD SPECIMEN / UnknownVenipuncture / Qzfueqj2903/02/2025 11:40 AM EST03/02/2025 11:41 AM EST Narrative Authorizing ProviderResult TypeResult Status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 APRN.CNPLABORATORY Final ResultPerforming OrganizationAddressCity/State/ZIP CodePhone Number [facility] [address] [place] [address] * VITAMIN B12 (12/23/2024 11:28 AM EDT)ComponentValueRef RangeTest Method Analysis TimePerformed AtPathologist SignatureVitamin C87417692 - 1,245 pg/mL 12/23/2024 7:00 PM EDTCCLEVEL[facility] CLIN[facility]INA [facility] LABSpecimen (Source) Anatomical Location / LateralityCollection Method / VolumeCollection Time Received TimeBloodBLOOD SPECIMEN / UnknownVenipuncture / Dnqpler2412/23/2024 11:28 AM EDT12/23/2024 11:28 AM EDT Narrative Authorizing ProviderResult TypeResult Status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 APRN.CNPLABORATORY Final ResultPerforming OrganizationAddressCity/State/ZIP CodePhone Number [facility] [address] [address], * (ABNORMAL) IRON AND TIBC (12/23/2024 11:28 AM EDT)ComponentValueRef RangeTest MethodAnalysis TimePerformed AtPathologist XvvkqrztbPvdw3789 - 186 ug/dL 12/23/2024 6:45 PM EDTCCLEVELAND [facility] FEXYKDM923(H)232 - 386 ug/dL12/23/2024 6:45 PM EDTCCLEVELAND CLINIC [facility] LABTransferrin Addgjgyaxg21.315.0 - 57.0 %12/23/2024 6:45 PM EDTCCLEVELAND CLINIC [facility] LABSpecimen (Source)Anatomical Location / LateralityCollection Method / Volume Collection TimeReceived TimeBloodBLOOD SPECIMEN / UnknownVenipuncture / Komnomk8112/23/2024 11:28 AM EDT12/23/2024 11:28 AM EDT Narrative Authorizing ProviderResult TypeResult Status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 APRN.CNPLABORATORY Final ResultPerforming OrganizationAddressCity/State/ZIP CodePhone Number [facility] [address] [place] [address], * FERRITIN (12/23/2024 11:28 AM EDT)ComponentValueRef RangeTest MethodAnalysis TimePerformed AtPathologist RguibqrzgMzzzewot90.514.7 - 205.1 ng/mL12/23/2024 7:00 PM EDTCCLEVELAND CLINIC MEDINA [facility] LABSpecimen (Source)Anatomical Location / LateralityCollection Method / VolumeCollection TimeReceived Time BloodBLOOD SPECIMEN / UnknownVenipuncture / Vgpdbwm8312/23/2024 11:28 AM EDT 12/23/2024 11:28 AM EDT Narrative Authorizing ProviderResult TypeResult Chester Caban APRN.CNPLABORATORY Final ResultPerforming OrganizationAddressCity/State/ZIP CodePhone Number [facility] [address] [place] [address], from Last 3 Months Insurance Care Teams Team MemberRelationshipSpecialtyStart DateEnd Date Evans Casas DO [address] [place] [address] PCP - GeneralFamily Mtjpqdjh17/3/22 Jonny Wilcox MD [address] [place] [address] Primary Staff PhysicianCardiology07/16/18 [place] [address] [place] [address] PhysicianHematology/Oncology09/14/21 Davida Restrepo, MARSHA [address] [place] [address] Specialty Care CoordinatorHematology/Oncology09/14/21
--- OUTSIDE RECORDS SUMMARY | 2025-03-05 19:09 | XMS_ITS | Encounter Summary ---
Author Organization [facility] Address [address] [place] [address] Care Team Providers Care Planner Intern Name Role Phone Penelope Casas MD Primary Care Provider [phone] Encounter Details DateTypeDepartmentCare Team (Latest Contact Info)Yyneysgckup46/11/2025linisync Result Encounter [facility] External Department Unsolicited Mya Herrmann, DO [address] [facility] [address] [place], [place] [id number] Social History Tobacco UseTypesPacks/DayYears UsedDateSmoking Tobacco: NeverSmokeless Tobacco: NeverAlcohol UseStandard Drinks/WeekCommentsNever0 (1 standard drink = 0.6 oz pure alcohol)PHQ-2AnswerDate RecordedPatient Health Questionnaire-2 Score0 01/06/2025CommentsYesSex and Gender InformationValueDate RecordedSex Assigned at BirthNot on fileLegal ZqgFkfdex04/15/2023 11:19 PM EDTGender IdentityNot on fileSexual OrientationNot on filedocumented as of this encounter Functional Status * Over the past 2 weeks, how often have you been bothered by any of the following problems?QuestionAnswerDate of AssessmentAuthorLittle interest or pleasure in doing thingsNot at all01/06/2025 9:35 AM Petra Flores LPN Feeling down, depressed, or hopelessNot at all01/06/2025 9:35 AM Petra Flores LPNPatient Health Questionnaire-2 Lcoew818 9:35 AM Petra Flores LPN documented as of this encounter Plan of Treatment DateTypeDepartmentCare Team (Latest Contact Info)Dejwgzohsiw00/11/2025 9:50 AM ESTRoutine [facility] [place] [facility] [address] [facility] [place] [address] Mya Herrmann, DO [address] [facility] [place] [address] documented as of this encounter Procedures Procedure NamePriorityDate/TimeAssociated DiagnosisCommentsUS OB LIMITED 1+ AZRYQPY4605/10/2024 9:26 AM EST SRMCOH PROTHROMBIN TIME INR W/O DTYNLpwfmnh54/11/2025 8:44 AM EST MHPT RJDNUKDREXSbopeyu87/11/2025 8:44 AM EST C[facility] HCZLMoiffba30/11/2025 8:44 AM EST documented in this encounter Results * US OB limited 1+ fetuses (05/10/2024 9:26 AM EST)Anatomical RegionLaterality ModalityBodyUltrasoundSpecimen (Source)Anatomical Location / Laterality Collection Method / VolumeCollection TimeReceived Time05/10/2024 9:26 AM EST Narrative 05/10/2024 9:29 AM EST [facility] ?[address] ? [place] [address] ? Ultrasound Report ? Signed ? Patient: MADHU RENDON ?MR#: [id number] ?? : 1985 ?Acct:[id number] ?? Age/Sex: 38 / F ?ADM Date: ?? Loc: FBC ??258-1 ? Attending Dr: Mya Herrmann D.O. ? Ordering Physician: Mya Herrmann D.O. ?? Date of Service: 05/10/24 ?? Procedure(s): US OB limited ?? Accession Number(s): [id number] ? cc: Mya Herrmann D.O.; PENELOPE CASAS ? [facility] ? [address] ? [place] [address] ? Patient Name: ?? MADHU RENDON ? MRN: [facility]:[id number] ? date: 1985 ?Sex: F ?? Assigned Patient Location: [facility] ?? Current Patient Location: US ?? Accession/Order Number: [id number] ?? Exam Date: 05/10/2024 ??08:30 ?Report Date: [...] ?05/10/2429 ? DD/ 5 ? TD/TT: ? Coding And Reimbursement Specialist: Procedure Note Radiology, Radiologist, - 05/10/2024 [place] [address] Ultrasound Report Signed Patient: MADHU RENDON SMR#: [id number] : 1985Acct:[id number] Age/Sex: 38 / FADM Date: Loc: [facility] 258-[address]: Mya Herrmann D.O. Ordering Physician: Mya Herrmann D.O. Date of Service: 05/10/24 Procedure(s): US OB limited Accession Number(s): [id number] cc: Mya Herrmann D.O.; PENELOPE CASAS [address] [address] Patient Name: MADHU RENDON MRN: [id number] date: 1985 Sex: F Assigned Patient Location: [facility] Current Patient Location: Accession/Order Number: [id number] Exam Date: 05/10/2024 08:30 Report Date: 05/10/2024 [...] Riley M.D. Signed By:05/10/24928 DD/ 5 TD/TT: Coding And Reimbursement Specialist: Authorizing ProviderResult TypeResult StatusCorecarmen Herrmann DOIMG OB US PROCEDURES Final Result * MHPT FIBRINOGEN (05/10/2024 8:44 AM EST)ComponentValueRef RangeTest Method Analysis TimePerformed AtPathologist EuqzhfyloSBZKUDQNAM216861 - 400 mg/dLTBH Specimen (Source)Anatomical Location / [...] Date Penelope Casas MD [address] [place] [address] PCP - GeneralFamily Medicine11/07/23documented as of this encounter
--- OUTSIDE RECORDS SUMMARY | 2025-03-05 19:09 | XMS_ITS | Encounter Summary ---
Author Organization [facility] Address [address] [place] [address] Care Team Providers Care Outsewer Name Role Phone Penelope Casas MD Primary Care Provider [phone] Encounter Details DateTypeDepartmentCare Team (Latest Contact Info)Cgaicykwrgo01/07/2024Clinisync Result Encounter [facility] External Department Unsolicited Mya Herrmann, DO [address] [facility] [address] [place] [place], [place] [address] Social History Tobacco UseTypesPacks/DayYears UsedDateSmoking Tobacco: NeverSmokeless Tobacco: NeverAlcohol UseStandard Drinks/WeekCommentsNever0 (1 standard drink = 0.6 oz pure alcohol)PHQ-2AnswerDate RecordedPatient Health Questionnaire-2 Score0 01/06/2025CommentsYesSex and Gender InformationValueDate RecordedSex Assigned at BirthNot on fileLegal EjcUvdkxq80/15/2023 11:19 PM EDTGender IdentityNot on fileSexual OrientationNot on filedocumented as of this encounter Functional Status * Over the past 2 weeks, how often have you been bothered by any of the following problems?QuestionAnswerDate of AssessmentAuthorLittle interest or pleasure in doing thingsNot at all01/06/2025 9:35 AM Petra Flores LPN Feeling down, depressed, or hopelessNot at all01/06/2025 9:35 AM Petra Flores LPNPatient Health Questionnaire-2 Sqsyk393 9:35 AM Petra Flores LPN documented as of this encounter Plan of Treatment DateTypeDepartmentCare Team (Latest Contact Info)Owdvygsiyrj11/11/2025 9:50 AM ESTRoutine [facility] [place] [facility] [address] [facility] [place] [address] Mya Herrmann, DO [address] [facility] [place] [address] documented as of this encounter Procedures Procedure NamePriorityDate/TimeAssociated DiagnosisCommentsUS OB TRANSVAGINAL 04/05/2024 4:39 AM EST documented in this encounter Results * US OB TRANSVAGINAL (04/05/2024 4:39 AM EST)Anatomical RegionLateralityModality OtherSpecimen (Source)Anatomical Location / LateralityCollection Method / VolumeCollection TimeReceived Time04/05/2024 4:39 AM EST Narrative 04/05/2024 4:42 AM EST [facility] ?[address] ? [place] [address] ? Ultrasound Report ? Signed ? Patient: Sanna Rendon ?MR#: [id number] ?? : 1985 ?Acct:[id number] ?? Age/Sex: 38 / F ?ADM Date: 04/04/24 ?? Loc: [facility] ? Attending Dr: Mya Herrmann D.O. ? Ordering Physician: Mya Herrmann D.O. ?? Date of Service: 04/04/24 ?? Procedure(s): US OB transvaginal ?? Accession Number(s): [id number] ? cc: Mya Herrmann D.O.; PENELOPE CASAS ? [facility] ? [address] ? [place] [address] ? Patient Name: ?? SANNA RENDON ? MRN: TBH:[id number] ? date: 1985 ?Sex: F ?? Assigned Patient Location: [facility] ?? Current Patient Location: ? Accession/Order Number: [id number] ?? Exam Date: 04/04/2024 ??09:43 ?Report Date: [...] ?04/05/24441 ? DD/ 0439 ? TD/TT: ? Body Hanger: Procedure Note Radiology, Radiologist, MD - 04/05/2024 The [place] [id number] Ultrasound Report Signed Patient: Sanna Rendon SMR#: [id number] : 1985Acct:[id number] Age/Sex: 38 / FADM Date: 04/04/24 Loc: [facility] Attending Dr: Mya eHrrmann D.O. Ordering Physician: Mya Herrmann D.O. Date of Service: 04/04/24 Procedure(s): US OB transvaginal Accession Number(s): [id number] cc: Mya Herrmann D.O.; PENELOPE CASAS [address] [address] Patient Name: SANNA RENDON MRN: TBH:[id number] date: 1985 Sex: F Assigned Patient Location: [facility] Current Patient Location: Accession/Order Number: [id number] Exam Date: 04/04/2024 09:43 Report Date: 04/05/2024 [...] M.D. Signed By:04/05/24 0442 DD/ 0439 TD/TT: Body Hanger: Authorizing ProviderResult TypeResult StatusCorecarmen Herrmann DOCLINISYNC IMAGINGFinal Result documented in this encounter Visit Diagnoses Not on filedocumented in this encounter Care Teams Team MemberRelationshipSpecialtyStart DateEnd Date Penelope Casas MD [address] [place] [address] PCP - GeneralFamily Medicine11/07/23documented as of this encounter
--- OUTSIDE RECORDS SUMMARY | 2025-03-05 19:09 | XMS_ITS | Encounter Summary ---
Author Organization [facility] Address [address] [place] [address] Care Team Providers Care Detective Name Role Phone Evans Casas MD Primary Care Provider [phone] Encounter Details DateTypeDepartmentCare Team (Latest Contact Info)Hnwowmnignf50/24/2025linisync Result Encounter [facility] External Department Unsolicited Mya Herrmann DO [address] [place] [address] Social History Tobacco UseTypesPacks/DayYears UsedDateSmoking Tobacco: NeverSmokeless Tobacco: NeverAlcohol UseStandard Drinks/WeekCommentsNever0 (1 standard drink = 0.6 oz pure alcohol)PHQ-2AnswerDate RecordedPatient Health Questionnaire-2 Score0 01/06/2025Estimated Date of ByrdubrmOnenuescHsh38/05/2026ased on last menstrual period of 07/28/2024Sex and Gender InformationValueDate RecordedSex Assigned at BirthNot on fileLegal UicKbyyoe59/15/2023 11:19 PM EDTGender IdentityNot on fileSexual OrientationNot on filedocumented as of this encounter Plan of Treatment DateTypeDepartmentCare Team (Latest Contact Info)Rrmdjfkphec14/11/2025 9:50 AM ESTRoutine [facility] [place] [facility] [address] [place] [phone] Mya Herrmann DO [address] [place] [address] documented as of this encounter Procedures Procedure NamePriorityDate/TimeAssociated DiagnosisCommentsUS OB GROWTH 02/20/2025 8:37 AM EDT documented in this encounter Results * US OB GROWTH (02/20/2025 8:37 AM EDT)Anatomical RegionLateralityModalityOther Specimen (Source)Anatomical Location / LateralityCollection Method / Volume Collection TimeReceived Time02/20/2025 8:37 AM EDT Narrative 02/20/2025 8:40 AM EDT [facility] ?[address] ? [place] [address] ? Ultrasound Report ? Signed ? Patient: JUSTICE,MADHU S ?MR#: [id number] ?? : 1985 ?Acct:[id number] ?? Age/Sex: 39 / F ?ADM Date: 02/19/25 ?? Loc: US ? Attending Dr: Mya Herrmann D.O. ? Ordering Physician: Mya Herrmann D.O. ?? Date of Service: 02/19/25 ?? Procedure(s): US OB growth ?? Accession Number(s): [id number] ? cc: Mya Herrmann D.O.; Physician,Non-Staff M.D. ? [facility] ? [address] [place] [address] ? [place] [address] ? Patient Name: ?? MADHU RENDON ? MRN: [facility]:[id number] ? date: 1985 ?Sex: F ?? Assigned Patient Location: LAB ?? Current Patient Location: ? Accession/Order Number: [id number] ?? Exam Date: 02/19/2025 ??19:47 ?Report Date: [...] Dictation Location: RADIO-PC-02 ? Electronically authenticated by: [id number] ??Y ?? Date: 02/20/2025 ??08:37 ? Dictated By: ?Pamela Pisano M.D. ? Signed By: ?02/20/25 0840 ? DD/ 0837 ? TD/TT: ? Bullet Swaging Machine Operator: Procedure Note Radiology, Radiologist, - 02/20/20[address] [place] [address] Ultrasound Report Signed Patient: MADHU RENDON [facility]#: [id number] : 1985Acct:[id number] Age/Sex: 39 / FADM Date: 02/19/25 Loc: US Attending Dr: Mya Herrmann D.O. Ordering Physician: Mya Herrmann D.O. Date of Service: 02/19/25 Procedure(s): US OB growth Accession Number(s): [id number] cc: Mya Herrmann D.O.; Physician,Non-Staff MGiovanni [place] [id number] Patient Name: MADHU RENDON MRN: [facility]:[id number] date: 1985 Sex: F Assigned Patient Location: LAB Current Patient Location: Accession/Order Number: [id number] Exam Date: 02/19/2025 19:47 Report Date: 02/20/2025 [...] Pisano M.D. 02/20/2025 8:37 AM Dictation Location: [place] [address] Electronically authenticated by: [id number] Y Date: 508:37 Dictated By: Pamela Pisano M.D. Signed By:02/20/25839 DD/ 6 TD/TT: Bullet Swaging Machine Operator: Authorizing ProviderResult TypeResult StatusCorey Montez DOCLINISYNC IMAGINGFinal Result documented in this encounter Visit Diagnoses Not on filedocumented in this encounter Care Teams Team MemberRelationshipSpecialtyStart DateEnd Date Evans Casas MD [address] [facility] [place] [address] PCP - GeneralFamily Medicine11/07/23documented as of this encounter
--- OUTSIDE RECORDS SUMMARY | 2025-03-05 19:09 | XMS_ITS | Encounter Summary ---
Author Organization [facility] Address [address] [place] [address] Care Team Providers Care Senior Gl Accountant Name Role Phone Jonny Wilcox MD Unavailable [phone] Cosmo Elliott MD Unavailable [phone] Davida Restrepo RN Unavailable [phone] Evans Casas DO Primary Care Provider [phone] Source Comments In the event this information is protected by the Federal Confidentiality of Alcohol and Drug AbusePatient Records regulations: The Federal rules restrict any use of the information to criminally investigate or prosecute any alcohol or drug abuse patient.[facility] Encounter Details DateTypeDepartmentCare Team (Latest Contact Info)Vidocuaskfm67/03/2025Travel Social History Tobacco UseTypesPacks/DayYears UsedDateSmoking Tobacco: NeverSmokeless Tobacco: NeverAlcohol UseStandard Drinks/WeekCommentsNo0 (1 standard drink = 0.6 oz pure alcohol)PHQ-2AnswerDate RecordedPHQ-2 yucmv4814Area Deprivation Index AnswerDate RecordedNational Score (1-100), lower number is lower risk58 09/28/2022State Score (1-10), lower number is lower knkn9823Data from: https://www.neighborhoodatlas.medicine.[facility].edu/. Last address used for giseounrwom[address]Estimated Date of DeliveryCommentsYes 07/28/2024Sex and Gender InformationValueDate RecordedSex Assigned at BirthNot on fileLegal HcoYfafso80/29/2018 10:06 AM ESTGender IdentityNot on fileSexual OrientationNot on fileOccupationIndustryJob Start DateJob End Datestay at home momNot on fileNot on fileNot on filedocumented as of this encounter Plan of Treatment DateTypeDepartmentCare Team (Latest Contact Info)Pjphbidwtne29/01/2025 8:00 AM ESTOffice [facility] [address] [place] [address] [place] [address] Return in 4 weeks lab and possible iron03/30/2025 8:20 AM ESTVisit (SP) Office Hematology/Oncology [address] [place] [address] [place] [address] Salvador Dos Santos MD [address] [place] [address] [place] [address] Return in 4 weeks lab and possible iron03/30/2025 8:30 AM [facility] Hematology/Oncology [address] [place] [address] [place] [address] Return in 4 weeks lab and possible irondocumented as of this encounter Visit Diagnoses Not on filedocumented in this encounter Care Teams Team MemberRelationshipSpecialtyStart DateEnd Date Evans Casas DO [address] [place] [address] PCP - GeneralFamily Dglemcnb66/3/22 Jonny Wilcox MD [address] [place] [address] Primary Staff PhysicianCardiology07/16/18 [place] [address] [place] [address] PhysicianHematology/Oncology09/14/21 Davida Restrepo, RN [address] [place] [address] Specialty Care CoordinatorHematology/Oncology09/14/21documented as of this encounter
--- OUTSIDE RECORDS SUMMARY | 2025-03-05 19:09 | XMS_ITS | Encounter Summary ---
Author Organization [facility] Address [address] [place] [address] Care Team Providers Care Tape Calender Name Role Phone Penelope Casas MD Primary Care Provider [phone] Encounter Details DateTypeDepartmentCare Team (Latest Contact Info)Qujwbhrcyvb66/11/2025linisync Result Encounter [facility] External Department Unsolicited Mya Herrmann, DO [address] [facility] [address] [place] [place], [place] [address] Social History Tobacco UseTypesPacks/DayYears UsedDateSmoking Tobacco: NeverSmokeless Tobacco: NeverAlcohol UseStandard Drinks/WeekCommentsNever0 (1 standard drink = 0.6 oz pure alcohol)PHQ-2AnswerDate RecordedPatient Health Questionnaire-2 Score0 01/06/2025CommentsYesSex and Gender InformationValueDate RecordedSex Assigned at BirthNot on fileLegal CswCbtoir09/15/2023 11:19 PM EDTGender IdentityNot on fileSexual OrientationNot on filedocumented as of this encounter Functional Status * Over the past 2 weeks, how often have you been bothered by any of the following problems?QuestionAnswerDate of AssessmentAuthorLittle interest or pleasure in doing thingsNot at all01/06/2025 9:35 AM Petra Flores LPN Feeling down, depressed, or hopelessNot at all01/06/2025 9:35 AM Petra Flores LPNPatient Health Questionnaire-2 Bslpc187 9:35 AM Petra Flores LPN documented as of this encounter Plan of Treatment DateTypeDepartmentCare Team (Latest Contact Info)Stsycodmcum86/11/2025 9:50 AM ESTRoutine [facility] [place] [facility] [address] [facility] [place] [address] Mya Herrmann, DO [address] [facility] [place] [address] documented as of this encounter Procedures Procedure NamePriorityDate/TimeAssociated DiagnosisCommentsUS TEGQOJ9005/10/2024 4:02 PM EST PROTEIN S-KUYDNEZZvzhapn00/11/2025 8:44 AM EST PROTEIN C-JAPYAGIOQGZxwmbim90/11/2025 8:44 AM EST FACTOR V LEIDEN PAFPECWEYhyshom64/11/2025 8:44 AM EST TB[facility] ANTITHROMBIN ZNLNWPEYXfqhcxg66/11/2025 8:44 AM EST METRO WEMVVJCPFKZSBvjzuvs79/11/2025 8:44 AM EST ALL MISCELLANEOUS BHDGJryozuf00/11/2025 8:44 AM EST ALL IMMUNOGLOBULIN GNlucxwf58/11/2025 8:44 AM EST ALL IMMUNOGLOBULIN QGeyzrul80/11/2025 8:44 AM EST documented in this encounter Results * US PELVIS (05/10/2024 4:02 PM EST)Anatomical RegionLateralityModalityOther Specimen (Source)Anatomical Location / LateralityCollection Method / Volume Collection TimeReceived Time05/10/2024 4:02 PM EST Narrative 05/10/2024 4:04 PM EST [facility] ?[address] ? [place] [address] ? Ultrasound Report ? Signed ? Patient: JUSTICE,MADHU S ?MR#: [id number] ?? : 1985 ?Acct:[id number] ?? Age/Sex: 38 / F ?ADM Date: ?? Loc: [facility] ??258-1 ? Attending Dr: Mya Herrmann D.O. ? Ordering Physician: Mya Herrmann D.O. ?? Date of Service: 05/10/24 ?? Procedure(s): US pelvis ?? Accession Number(s): [id number] ? cc: Mya Herrmann D.O.; PENELOPE CASAS ? [facility] ? [address] ? [place] [address] ? Patient Name: ?? MADHU RENDON ? MRN: [facility]:[id number] ? date: 1985 ?Sex: F ?? Assigned Patient Location: [facility] ?? Current Patient Location: [facility] ?? Accession/Order Number: [id number] ?? Exam Date: 05/10/2024 ??14:36 ?Report Date: [...] 1604 ? DD/ 1602 ? TD/TT: ? Superintendent Communications: Procedure Note Radiology, Radiologist, MD - 05/10/2024 [place] [address] Ultrasound Report Signed Patient: MADHU RENDON [facility]#: [id number] : 1985Acct:[id number] Age/Sex: 38 / FADM Date: Loc: [facility] 258-[address]: Mya Herrmann D.O. Ordering Physician: Mya Herrmann D.O. Date of Service: 05/10/24 Procedure(s): US pelvis Accession Number(s): [id number] cc: Mya Herrmann D.O.; PENELOPE CASAS [place] [id number] Patient Name: MADHU RENDON MRN: [facility]:[id number] date: 1985 Sex: F Assigned Patient Location: [facility] Current Patient Location: [facility] Accession/Order Number: [id number] Exam Date: 05/10/2024 14:36 Report Date: 05/10/2024 [...] M.D. Signed By:05/10/24 1604 DD/ 1602 TD/TT: Superintendent Communications: Authorizing ProviderResult TypeResult StatusCorey Montez DOCLINISYNC IMAGINGFinal Result * FACTOR V LEIDEN MUTATION (05/10/2024 8:44 AM EST)ComponentValueRef RangeTest MethodAnalysis TimePerformed AtPathologist SignatureTBH FACTOR V LEIDEN MUTATIONComment.TBHComment: Result: c.1601G>A (p.Pcj526Lvq) - Not Detected This result is not associated with an increased risk for venous thromboembolism. See Additional Clinical Information and Comments. Additional Clinical Information: Venous thromboembolism is a multifactorial disease influenced by genetic, environmental, and circumstantial risk factors. The c.1601G>A (p. Ljw304Jap) variant in the F5 gene, commonly referred [...] c.*97G>A variant and Factor V Leiden (PMID: 77103134). Additional risk factors include but are not [...] health care providers to discuss results at [phone] ([phone]). Test Details: Variant Analyzed: c.1601G>A (p. Vki971Uda), referred to as Factor V Leiden Methods/Limitations: [...] developed and its performance characteristics determined by [facility]. It has not been cleared or approved by the Food and Drug Administration. References: Jomar S, Loren AK, Das R, Solo WW, Jose JH; ACMG Professional Practice and Guidelines Committee. Addendum: [place] [employer] consensus statement on factor V Leiden mutation testing. Nisha Med. 2020Jul 02. doi: 10.1038/y41770-998-01200-w. PMID: 59443360. Naina POWERS. Factor V Leiden Thrombophilia. 1998September 10 (Updated 2017May 03). In: Emeterio EDWARDS, Radha HH, Clayton RA, et al., editors. Cassie(Spencer) (Internet). [place] ([place]): [facility]; 8607-0350. Available from: https://www.ncbi.nlm.nih.gov/books/YXR5839/ Hudson S, Loren AK, Trent X, Margarito B, Jo-Ann EB, Lena P, Rhiannon CS; ACMG Laboratory Time Analysis Clerk Committee. Venous thromboembolism laboratory testing (factor V Leiden and factor II c.*97G>A), 2018 update: a technical standard of the [place] [employer] and Genomics (ACMG). Nisha Med. 2018 Mar;20(12):1563-7672. doi: 10.1038/x32007-079-1751-g. Epub 2017Feb 01. PMID: 53853673. TBH REVIEWED BYComment.TBHComment: Technical Component performed at [facility] Professional Component performed by: [facility] Rosa Isela Lee, Ph.D., [facility] Director, Molecular Genetics [id number] [place] [address] Performed at: ??TG - [facility] [address] [place], [place] ??[id number] General Labor: Kolton Storm [facility], Phone: ??[phone] Specimen (Source)Anatomical Location / LateralityCollection Method / Volume Collection TimeReceived Time05/10/2024 8:44 AM EST05/10/2024 8:52 AM EST Narrative [facility]IN[facility] - 05/15/2024 2:08 PM EST Authorizing ProviderResult TypeResult StatusCorey Montez DOLAB BLOOD ORDERABLES Final ResultPerforming OrganizationAddressCity/State/ZIP CodePhone Number [facility] * ALL MISCELLANEOUS TEST (05/10/2024 8:44 AM EST)ComponentValueRef RangeTest MethodAnalysis TimePerformed AtPathologist SignatureMISCELLANEOUS TESTCOMMENT. TBHComment: Test Ordered: [id number] , ID Ab Cytomegalovirus (CMV) Ab, IgG [...] Positive >1.1 Performed at: ??CB - [facility] [address] ??[id number] General Labor: Dusty Miles PhD, Phone: ??[phone] Performed at: ??BN - [facility] ??[id number] General Labor: China Ching MD, Phone: ??[phone] Specimen (Source)Anatomical Location / LateralityCollection Method / Volume Collection TimeReceived Time05/10/2024 8:44 AM EST05/10/2024 10:27 AM EST Narrative [facility] - 05/13/2024 3:11 PM EST [id number] , Infectious Disease Antibody Profile Authorizing ProviderResult TypeResult StatusCorey Montez DOCLINISYNCFinal Result Performing OrganizationAddressCity/State/[facility] CodePhone Number [facility] TB[facility] * (ABNORMAL) [facility] ANTITHROMBIN ACTIVITY (05/10/2024 8:44 AM EST)ComponentValueRef RangeTest MethodAnalysis TimePerformed AtPathologist SignatureTBH ANTITHROMBIN QIIZEUOK114(A)75 - 135 %TBHComment: An elevated antithrombin activity is of no known clinical significance. Direct Xa inhibitor anticoagulants such as rivaroxaban, apixaban and edoxaban will lead to spuriously elevated antithrombin activity levels possibly masking a deficiency. Performed at: ?? - [facility] [address] ??[id number] General Labor: China Ching MD, Phone: ??[phone] Specimen (Source)Anatomical Location / LateralityCollection Method / Volume Collection TimeReceived Time05/10/2024 8:44 AM EST05/10/2024 8:52 AM EST Narrative [facility] - 05/12/2024 2:08 PM EST Authorizing ProviderResult TypeResult StatusCorey Montez DOCLINISYNCFinal Result Performing OrganizationAddressty/State/ZIP CodePhone Number [facility] * PROTEIN S-ANTIGEN (05/10/2024 8:44 AM EST)ComponentValueRef RangeTest Method Analysis TimePerformed AtPathologist SignaturePROTEIN S, FVQJX3595 - 150 %TBH Comment: This test was developed and its performance characteristics determined by [facility]. It has not been cleared or approved by the Food and Drug Administration. PROTEIN S, SRLT13192 - 136 %TBHSpecimen (Source)Anatomical Location / Laterality Collection Method / VolumeCollection TimeReceived Time05/10/2024 8:44 AM EST 05/10/2024 9:48 AM EST Narrative [facility] - 05/12/2024 2:08 PM EST Authorizing ProviderResult TypeResult StatusCorey Montez DOLAB BLOOD ORDERABLES Final ResultPerforming OrganizationAddressCity/State/[facility] CodePhone Number [facility] * PROTEIN C-FUNCTIONAL (05/10/2024 8:44 AM EST)ComponentValueRef RangeTest MethodAnalysis TimePerformed AtPathologist SignaturePROTEIN C-IXDYFUZDGS26653 - 180 %TBHComment: Performed at: ?? - [facility] ??[id number] General Labor: China Ching MD, Phone: ??[phone] Specimen (Source)Anatomical Location / LateralityCollection Method / Volume Collection TimeReceived Time05/10/2024 8:44 AM EST05/10/2024 9:48 AM EST Narrative CLINISYNC - 05/12/2024 2:08 PM EST Authorizing ProviderResult TypeResult StatusCorey Montez DOLAB BLOOD ORDERABLES Final ResultPerforming OrganizationAddWashington Health Systemty/State/[facility] CodePhone Number [facility] * METRO HOMOCYSTEINE (05/10/2024 8:44 AM EST)ComponentValueRef [...] MethodAnalysis TimePerformed AtPathologist SignatureTBH IMMUNOGLOBULIN G, QN 522485 - 1602 mg/dLTBHComment: Performed at: ??[address] ??[id number] General Labor: Dusty Miles PhD, Phone: ??[phone] Specimen (Source)Anatomical Location / LateralityCollection Method / Volume Collection TimeReceived Time05/10/2024 8:44 AM EST05/10/2024 8:52 AM EST Narrative [facility]IN[facility] - 05/11/2024 7:08 AM EST Authorizing ProviderResult TypeResult StatusCorey Montez DOCLINISYNCFinal Result Performing OrganizationAddressCity/State/ZIP CodePhone Number [facility]IN[facility]NC TB * ALL IMMUNOGLOBULIN M (05/10/2024 8:44 AM EST)ComponentValueRef RangeTest MethodAnalysis TimePerformed AtPathologist SignatureTBH IMMUNOGLOBULIN M, Q177 26 - 217 mg/dLTBHComment: Performed at: ??[address] ??[id number] General Labor: Dusty Miles PhD, Phone: ??[phone] Specimen (Source)Anatomical Location / LateralityCollection Method / Volume Collection TimeReceived Time05/10/2024 8:44 AM EST05/10/2024 8:52 AM EST Narrative [facility] - 05/11/2024 7:08 AM EST Authorizing ProviderResult TypeResult StatusCorey Montez DOCLINISYNCFinal Result Performing OrganizationAddclovis baptist hospitalCity/State/ZIP CodePhone Number [facility]H documented in this encounter Visit Diagnoses Not on filedocumented in this encounter Care Teams Team MemberRelationshipSpecialtyStart DateEnd Date Penelope Casas MD [address] [place] [address] PCP - GeneralFamily Medicine11/07/23documented as of this encounter
--- OUTSIDE RECORDS SUMMARY | 2025-03-05 19:09 | XMS_ITS | Clinical Summary ---
Author Organization [employer] Address [id number] [address] [place] [address] Care Team Providers Care Vp Scientific Name Role Phone Evans Casas DO Primary Care Provider [phone] Allergies Active AllergyReactionsCriticalityNoted DateCommentsCiprofloxacinDizziness 06/19/2019LactalbuminOther (See Comments)Low05/25/2017 Other reaction(s): GI Upset Crampy and gassy LactoseGI Extptbrkvbk25/14/2018 Diarrhea Milk Containing Products (Dairy)Other (See Comments)Low05/25/2017 [...] in second trimester controlled on oral hypoglycemic drug12/17/20249345Glcpyh44/08/2025MA (advanced maternal age) multigravida 35+11/04/2024ntiphospholipid syndrome 11/04/20241895Uqsahzhapkx09/08/5353Wqhwxy61/08/2025ntiphospholipid syndrome complicating , yzgruylqme68/09/2020Estimated Date of Delivery NxyamqwlIyv21/05/2026ased on last menstrual period of 07/28/2024 Resolved Problems ProblemNoted DateDiagnosed DateResolved DateCerebral infarction, unspecified Migraine without aura and without status migrainosus, not ymjmrcyqjqs98 Encounters DateTypeDepartmentCare CplyYjhsmgzpsrs03/23/2025Orders Only [facility], A Department of [address] [address] Ref Prov, Not In System 02/18/2025[facility] Department of [address] [address] Ref Prov, Not In System 02/16/2025 1:45 PM EDTOffice Visit [facility] Department of [place] [address] [address] Sam Callahan MD MPH Antiphospholipid syndrome (Primary Dx); Antiphospholipid syndrome complicating , antepartum; History of CVA (cerebrovascular accident); Coordination of complex care; 29 weeks gestation of peejmzxmw49/20/2071Jsofxo04/14/2025Telephone Maternal- Medicine at [address] [address] Annita Kendall LD 02/06/2025 2:00 PM EDTTelemedicine Maternal- Medicine at [address] [address] Wilfrid Medina MD 27 weeks gestation of (Primary Dx); Multigravida of advanced maternal age in third trimester; Gestational diabetes mellitus (GDM) in second trimester controlled on oral hypoglycemic drug; Antiphospholipid syndrome complicating , antepartum; Antiphospholipid ygzgukvm44/10/3365Tomzte28/09/4462Ozwpxy51/16/2025 10:00 AM EDT Telemedicine Maternal- Medicine at [place] [address] [place] [address] Davida Smith PA-C Gestational diabetes mellitus (GDM) in second trimester controlled on oral hypoglycemic drug (Primary Dx); Antiphospholipid syndrome; Other specified hypothyroidism; Antiphospholipid syndrome complicating , uocbblnonb98/16/2025Travel 01/09/2025Telephone Maternal- Medicine at [facility] [address] [place] [address] Wilfrid Medina MD 01/09/2025Orders Only Maternal- Medicine at [facility] [address] [place] [address] Wilfrid Medina MD Antiphospholipid syndrome (Primary Dx)01/07/2025Telephone Maternal- Medicine at [facility] [address] [place] [address] Jacque Pat RN 01/06/2025Telephone Maternal- Medicine at [facility] [address] [place] [address] Margo Khan RN 01/05/2025Orders Only Maternal- Medicine at [facility] [address] [place] [address] Jacque Pat, MARSHA Multigravida of advanced maternal age in second trimester (Primary Dx); Antiphospholipid syndrome complicating , antepartum; Gestational diabetes mellitus (GDM) in second trimester controlled on oral hypoglycemic drug; AMA (advanced maternal age) multigravida 35+, second trimester; Hypothyroidism, unspecified type; History of stroke; History of loss in prior , currently in second trimester; Hypothyroidism affecting in second trimester; Family history of autism; Ojghrnhewjcb20/08/2025Documentation Maternal- Medicine at [facility] [address] [facility] [place] [place] [address] Jacque Pat RN 01/01/2025 2:30 PM EDTTelemedicine Maternal Medicine [place] [address] [facility] [address] [place] [address] Wilfrid Medina MD 22 weeks gestation of (Primary Dx); Antiphospholipid syndrome complicating , antepartum; History of stroke; History of loss in prior , currently in second trimester; Gestational diabetes mellitus (GDM) in second trimester controlled on oral hypoglycemic drug; Multigravida of advanced maternal age in second trimester; Hypothyroidism affecting in second trimester; Family history of autism; Hueanxixxbif42/04/2025Orders Only [facility] [place] [address] [facility] [address] [place] [address] Iraida Warren RN Multigravida of advanced maternal age in second trimester (Primary Dx); Antiphospholipid syndrome complicating , antepartum; Gestational diabetes mellitus (GDM) in second trimester controlled on oral hypoglycemic drug; Insulin controlled gestational diabetes mellitus (GDM) in second trimester; AMA (advanced maternal age) multigravida 35+, second trimester; Hypothyroidism, unspecified type01/01/20251595Xppcla71/29/2025Orders Only [facility] - Labor [address] [facility] [place] [address] Wilfrid Medina MD Gestational diabetes mellitus (GDM) in second trimester controlled on oral hypoglycemic drug (Primary Dx)12/26/2024Telephone Maternal- Medicine at [facility] [address] [place] [address] Stephanie Quiros LD 12/17/2024 3:30 PM EDTTelemedicine Maternal- Medicine at [facility] [address] [place] [address] Alisa Saba APRN-TOR Gestational diabetes mellitus (GDM) in second trimester controlled on oral hypoglycemic drug (Primary Dx)12/17/20246673Esxopu13/15/2025Orders Only Maternal- Medicine at [facility] [address] [place] [address] Star Waggoner MD 12/12/2024Telephone Maternal- Medicine at [facility] [address] [place] [address] Annita Kendall LD 12/12/2024Telephone Maternal- Medicine at [facility] [address] [place] [address] Annita Kendall, PRISCILLA 12/03/2024 2:00 PM EDTTelemedicine Maternal- Medicine at [facility] [address] [place] [address] Alisa Saba, VICTOR HUGO-TOR Insulin controlled gestational diabetes mellitus (GDM) in second trimester (Primary Dx)12/03/2024Telephone Maternal- Medicine at [facility] [address] [place] [address] Anni Abreu, ROSE from Last 3 Months Family History Medical PpjzhlwIiugshixNvqgJwyuooihOicduvtcNyrzewG9DHYswzghJmyjboUsjijs illness Maternal GrandmotherCancerPaternal GrandfatherDiabetesPaternal MxbilixvthbW7MZ CancerPaternal GrandmotherDiabetesPaternal WknfunuizbzK3ITMtabbuihFeodpyO5LJ RelationNameStatusCommentsFatherDeceasedMaternal GrandmotherPaternal Grandfather Paternal GrandmotherSister Social History Tobacco UseTypesPacks/DayYears UsedDateSmoking Tobacco: NeverSmokeless Tobacco: Never Tobacco Cessation:Counseling Given: Not Answered Alcohol UseStandard Drinks/WeekCommentsNot Currently0 (1 standard drink = 0.6 oz pure alcohol)ChildcareAnswerDate LkusohogYgvecxwsiTuybvej67/31/2019Employment AnswerDate OvpfbqlbMpziyzjctuStfetrs87/31/2019Hunger ScreeningAnswerDate RecordedWithin the past 12 months we worried whether our food would run out before we got money to buy more.Never True01/01/2025Within the past 12 months the food we bought just didn't last and we didn't have money to get more.Never True01/01/2025Purpose - LifeAnswerDate RecordedPurpose and direction in life Nlmlnpb13/11/2021Estimated Date of DlvhwkdzLbgpauowQqt06/05/2026Based on last menstrual period of 07/28/2024Sex and Gender InformationValueDate Recorded Sex Assigned at BirthNot on fileLegal QjkTencpo76/31/2019 12:25 PM EDTGender IdentityNot on fileSexual OrientationNot on file Last Filed Vital Signs Vital SignReadingTime TakenCommentsBlood Dmokvkez822/801 1:44 PM EDT Trezw006502/16/2025 1:44 PM EDTTemperature--Respiratory Yati9377 1:44 PM EDTOxygen Saturation--Inhaled Oxygen Concentration--Cwromc22.8 kg (209 lb) 02/16/2025 1:44 PM HETLizbgw602.6 cm (5' 6 )02/16/2025 1:44 PM EDTBody Mass Index33.7302/16/2025 1:44 PM EDT Plan of Treatment DateTypeDepartmentCare Team (Latest Contact Info)Plwenitwwsk69/11/2025 8:00 AM ESTTelemedicine Maternal- Medicine at [address] [address] Sana Palma MD [address] [place] [address] 03/17/2025 8:30 AM ESTTelemedicine [facility], [facility] Department of [address] [address] Sam Callahan MD MPH [address] [place] [address] Health MaintenanceDue DateLast DoneCommentsDepression Mtzosegaw70/24/1998Adult BMI Follow Up Plan10/22/2003DTaP,Tdap and Td Vaccines (2 - Td or Tdap)07/03/2024 07/03/2014Influenza Hvrbumo2912/29/2024Pap SmearSV ( or age 60+ yrs) (1 - Risk 1-dose series)03/09/2025dult BMI Screening Tobacco Eprncujhc06 Medical Devices Not on file Procedures Procedure NamePriorityDate/TimeAssociated DiagnosisCommentsEXTERNAL LAB ORDERS / WQVPGQCKgbugal07/23/2025 3:15 PM EDTEXTERNAL LAB ORDERS / RESULTSRoutine 02/19/2025 3:13 PM EDTEXTERNAL LAB ORDERS / HEHZWQRPhisyiy11/22/2025 1:58 PM EDT [facility] OB FOLLOW-UP, 1 XCRVOIfkbqoj14/09/2025 2:10 PM EDT Multigravida of advanced maternal age in second trimester Antiphospholipid syndrome complicating , antepartum Gestational diabetes mellitus (GDM) in second trimester controlled on oral hypoglycemic drug Insulin controlled gestational diabetes mellitus (GDM) in second trimester AMA (advanced maternal age) multigravida 35+, second trimester Hypothyroidism, unspecified type [facility] COMPREHENSIVE ANATOMIC HIFMDCBwzhakw04/04/2025 2:24 PM EDT Screening, , for anatomic survey Multigravida of advanced maternal age in second trimester from Last 3 Months Results * External Lab Orders / Results (02/19/2025 3:15 PM EDT) Only the most recent of3 resultswithin the time period is included. Narrative Authorizing ProviderResult TypeResult StatusNot In System Ref ProvLAB ORDERABLES Final ResultPerforming OrganizationAddressCity/State/ZIP CodePhone Number MANUALLY TRANSCRIBED RESULTS * [facility] OB FOLLOW-UP, 1 FETUS (02/05/2025 2:10 PM EDT) Only the most recent of2 resultswithin the time period is included. Anatomical RegionLateralityModalityOB-GYNUltrasoundSpecimen (Source)Anatomical Location / LateralityCollection Method / VolumeCollection TimeReceived Time 02/05/2025 1:21 PM EDT Narrative 02/06/2025 5:22 PM EDT NAME: ??JUSTICE LEUNG : 1985 SEX: F Accession Number: [id number] ORDERING PHYSICIAN: MYA MASSEY REFERRING PHYSICIAN: MYA MASSEY Coding Procedures ? 94007: Ultrasound, uterus, real time with image documentation, follow up,transabdominal ? approach per fetus ? 81087: Echocardiography, , cardiovascular system, real time with image documentation (2D), with or ? without M-mode recording; follow-up or repeat study Indication Screening for follow-up survey, Screening for congenital cardiac abnormality , Gestational diabetes, AMA- Supervision of elderly , Supervision of high risk -(MOB son - hypospadia, MOB -son - laryngomalacia ), Obesity in , Hypothyroidism. History OB History ? 7. Para 3 ? [id number] Current Cell free DNA ?Low Risk analysis [...] (oz) ? 4 oz EFW by: ?Hadlock (LGA-CS-SJ-FL) Extended Tibia ??46.0 mm 28w 0d 68% [...] Heart/Thorax: 4-chamber view. RVOT view. 3-vessel view. 9-aedrry-qcodkqa view. Great vessels. ? Right lung. Left [...] previously RVOT view ?normal 3-vessel view ??normal 3-nextpt-heqirwn view ??normal Aortic arch view ? normal [...] MVP measures 6.7 cm. Recommendations Please see [facility] recommendations from prior clinical and/or ultrasound [...] LEUNG : 1985 SEX: F Accession Number: [id number] ORDERING PHYSICIAN: MYA MASSEY REFERRING PHYSICIAN: MYA MASSEY Coding Procedures 84352: Ultrasound, uterus, real time with image documentation, follow up, transabdominal approach per fetus 18676: Echocardiography, , cardiovascular system, real timewith image documentation (2D), with or without M-mode recording; follow-up or repeat study Indication Screening for follow-up survey, Screening for congenital cardiacabnormality , Gestational diabetes, AMA- Supervision of elderly , Supervision of high risk -(MOB son - hypospadia, MOB -son - laryngomalacia ), Obesity in , Hypothyroidism. History OB History 7. Para 3 [id number] Current Cell free DNA Low Risk analysis [...] EFW (oz) 4 oz EFW by: Hadlock (RAI-CR-AL-FL) Extended Tibia 46.0 mm 28w 0d 68% [...] Heart/Thorax: 4-chamber view. RVOT view. 3-vessel view. 8-tkbdjh-lmndcdiwioq. Great vessels. Right lung. Left lung. Diaphragm. [...] previously RVOT view normal 3-vessel view normal 7-pplhai-vnftmef view normal Aortic arch view normal Ductal [...]
--- OUTSIDE RECORDS SUMMARY | 2025-03-05 19:09 | XMS_ITS | Encounter Summary ---
Author Organization [facility] Address [address] [facility] [place] [address] Care Team Providers Care Athletic Scout Name Role Phone Evans Casas MD Primary Care Provider [phone] Encounter Details DateTypeDepartmentCare Team (Latest Contact Info)Wydaukqktws14/31/2025linisync Result Encounter [facility] External Department Unsolicited Mya Herrmann DO [address] [place] [address] Social History Tobacco UseTypesPacks/DayYears UsedDateSmoking Tobacco: NeverSmokeless Tobacco: NeverAlcohol UseStandard Drinks/WeekCommentsNever0 (1 standard drink = 0.6 oz pure alcohol)PHQ-2AnswerDate RecordedPatient Health Questionnaire-2 Score0 01/06/2025Estimated Date of BcjnagwuLgsrjcyvIva54/05/2026ased on last menstrual period of 07/28/2024Sex and Gender InformationValueDate RecordedSex Assigned at BirthNot on fileLegal PcgSlagbs78/15/2023 11:19 PM EDTGender IdentityNot on fileSexual OrientationNot on filedocumented as of this encounter Plan of Treatment DateTypeDepartmentCare Team (Latest Contact Info)Fbhffrpfgyc49/11/2025 9:50 AM ESTRoutine [facility] [place] [facility] [address] [place] [address] Mya Herrmann DO [address] [place] [address] documented as of this encounter Procedures Procedure NamePriorityDate/TimeAssociated DiagnosisCommentsUS OB BPP W NON-XASPYE7402/27/2025 10:53 AM EDT documented in this encounter Results * US OB BPP W NON-STRESS (02/27/2025 10:53 AM EDT)Anatomical Region LateralityModalityOtherSpecimen (Source)Anatomical Location / Laterality Collection Method / VolumeCollection TimeReceived Time02/27/2025 10:53 AM EDT Narrative 02/27/2025 10:56 AM EDT [facility] ?[address] ? [place], [place] [address] ? Ultrasound Report ? Signed ? Patient: SANNA RENDON S ?MR#: [id number] ?? : 1985 ?Acct:[id number] ?? Age/Sex: 39 / F ?ADM Date: 02/26/25 ?? Loc: US ? Attending Dr: Mya Herrmann D.O. ? Ordering Physician: Mya Herrmann D.O. ?? Date of Service: 02/26/25 ?? Procedure(s): US OB BPP w non-stress ?? Accession Number(s): [id number] ? cc: Mya Herrmann D.O.; Physician,Non-Staff M.D. ? [facility] ? [address] [facility] ? [place] [address] ? Patient Name: ?? SANNA RENDON ? MRN: [facility]:[id number] ? date: 1985 ?Sex: F ?? Assigned Patient Location: US ?? Current Patient Location: ? Accession/Order Number: [id number] ?? Exam Date: 02/26/2025 ??19:42 ?Report Date: [...] Dictation Location: RADIO-PC-02 ? Electronically authenticated by: [id number] ??Y ?? Date: 02/27/2025 ??10:53 ? Dictated By: ?Pamela Pisano M.D. ? Signed By: ?10/31/25 1056 ? DD/ 1053 ? TD/TT: ? Repair Supervisor: Procedure Note Radiology, Radiologist, - 02/27/2025 [place] [address] Ultrasound Report Signed Patient: SANNA RENDON SMR#: [id number] : 1985Acct:[id number] Age/Sex: 39 / FADM Date: 02/26/25 Loc: US Attending Dr: Mya Herrmann D.O. Ordering Physician: Mya Herrmann D.O. Date of Service: 02/26/25 Procedure(s): US OB BPP w non-stress Accession Number(s): [id number] cc: Mya Herrmann D.O.; Physician,Non-Staff M.D. The [place] [id number] Patient Name: SANNA RENDON MRN: [id number] date: 1985 Sex: F Assigned Patient Location: [place] Current Patient Location: Accession/Order Number: [id number] Exam Date: 02/26/2025 19:42 Report Date: 02/27/2025 [...] Pisano M.D. 02/27/2025 10:53 AM Dictation Location: [place] [address] Electronically authenticated by: [id number] Y Date: 0:53 Dictated By: aPmela Pisano M.D. Signed By:02/27/25 1056 DD/ 1053 TD/TT: Repair Supervisor: Authorizing ProviderResult TypeResult StatusCorey Montez DOCLINISYNC IMAGINGFinal Result documented in this encounter Visit Diagnoses Not on filedocumented in this encounter Care Teams Team MemberRelationshipSpecialtyStart DateEnd Date Evans Casas MD [address] [place] [address] PCP - GeneralFamily Medicine11/07/23documented as of this encounter
--- OUTSIDE RECORDS SUMMARY | 2025-03-05 19:09 | XMS_ITS | Encounter Summary ---
Author Organization [facility] Address [address] [place] [address] Care Team Providers Care Electronic Imaging System Operator Name Role Phone Evans Casas MD Primary Care Provider [phone] Encounter Details DateTypeDepartmentCare Team (Latest Contact Info)Rriotsuemui80/04/2025Patient Outreach [facility] POPULATION [facility] [address] [place] [address] Petra Whitmore LPN [address] [place] [address] Social History Tobacco UseTypesPacks/DayYears UsedDateSmoking Tobacco: NeverSmokeless Tobacco: NeverAlcohol UseStandard Drinks/WeekCommentsNever0 (1 standard drink = 0.6 oz pure alcohol)PHQ-2AnswerDate RecordedPatient Health Questionnaire-2 Score0 03/03/2025Estimated Date of JmosrsikKulexxgfXpe60/05/2026ased on last menstrual period of 07/28/2024Sex and Gender InformationValueDate RecordedSex Assigned at BirthNot on fileLegal LavAipjbe45/15/2023 11:19 PM EDTGender IdentityNot on fileSexual OrientationNot on filedocumented as of this encounter Functional Status * Over the past 2 weeks, how often have you been bothered by any of the following problems?QuestionAnswerDate of AssessmentAuthorLittle interest or pleasure in doing thingsNot at all03/03/2025 1:52 PM Petra Tabares LPN Feeling down, depressed, or hopelessNot at all03/03/2025 1:52 PM Petra Tabares LPNPatient Health Questionnaire-2 Bzlmv98805/03/2024 1:52 PM Petra Tabares LPN documented as of this encounter Progress Notes * Petra Whitmore LPN - 03/03/2025 1:47 PM EST Monthly Outreach. Call to pt. Pt report she is managing blood glucose and is well controlled. Pt voices she has MFM on board as well as her OB and feels monthly outreach isnt necessary at this time. Next OB OV 03/10/25. documented in this encounter Plan of Treatment DateTypeDepartmentCare Team (Latest Contact Info)Tufysvnaebg75/11/2025 9:50 AM ESTRoutine [facility] [address] [facility] [place] [address] Wilton Herrmann DO [address] [facility] [place] [address] documented as of this encounter Visit Diagnoses Not on filedocumented in this encounter Care Teams Team MemberRelationshipSpecialtyStart DateEnd Date Evans Casas MD [address] [place] [address] PCP - GeneralFamily Medicine11/07/23documented as of this encounter
--- OUTSIDE RECORDS SUMMARY | 2025-03-05 19:09 | XMS_ITS | Encounter Summary ---
Author Organization [facility] Address [address] [facility] [place] [address] Care Team Providers Care Buff Wheel Fabricator Name Role Phone Evans Casas MD Primary Care Provider [phone] Encounter Details DateTypeDepartmentCare Team (Latest Contact Info)Ddsxhanugak57/27/2025amboo flowsheet [facility] [place] [facility] [address] [place] [address] Wilton Herrmann DO [address] [place], [facility] Social History Tobacco UseTypesPacks/DayYears UsedDateSmoking Tobacco: NeverSmokeless Tobacco: NeverAlcohol UseStandard Drinks/WeekCommentsNever0 (1 standard drink = 0.6 oz pure alcohol)PHQ-2AnswerDate RecordedPatient Health Questionnaire-2 Score0 01/06/2025Estimated Date of BuihivsuGbucvivfCda40/05/2026ased on last menstrual period of 07/28/2024Sex and Gender InformationValueDate RecordedSex Assigned at BirthNot on fileLegal IajXgrrzg10/15/2023 11:19 PM EDTGender IdentityNot on fileSexual OrientationNot on filedocumented as of this encounter Plan of Treatment DateTypeDepartmentCare Team (Latest Contact Info)Lmftzmhmith00/11/2025 9:50 AM ESTRoutine [facility] [place] [address] [place] [place] [address] Wilton Herrmann, [address] [place] [address] documented as of this encounter Visit Diagnoses Not on filedocumented in this encounter Care Teams Team MemberRelationshipSpecialtyStart DateEnd Date Evans Casas MD [address] [place] [address] PCP - GeneralFamily Medicine11/07/23documented as of this encounter
--- OUTSIDE RECORDS SUMMARY | 2025-03-05 19:09 | XMS_ITS | Clinical Summary ---
Author Organization [facility] Address [address] [place] [address] Care Team Providers Care Account Collector Name Role Phone Penelope Casas MD Primary Care Provider [phone] Allergies Active AllergyReactionsCriticalityNoted DateCommentsCiprofloxacinGI intolerance 04/19/2023iprofloxacin-Fluocinolone Pf05/19/2019 Other Reaction(s): Other: See Comments Dizziness, weakness sweating Dxnoaqo3409/10/2017 Other Reaction(s): GI Disturbance, GI Upset Diarrhea Diarrhea Lactose Intolerance (Gi)11/15/2023 Other Reaction(s): Illness Ztmbojxfpho47/06/2021 Other Reaction(s): Other (See Comments) QwnshLknukIrl30/26/2018 seasonal Other Reaction(s): Other (See Comments) Medications MedicationSigDispense QuantityRefillsLast FilledStart DateEnd DateStatus Multiple Vitamin (Multi-Vitamin) tablet Take 1 tablet by mouth in the morning.Active levothyroxine (Synthroid) 25 MCG tablet Indications:Abnormal TSHTake 1 tablet (25 mcg) by mouth in the morning. Take before meals. 30 tablet 110//[id number]//6Active enoxaparin (Lovenox) 40 MG/0.4ML injection 1 (one) time each day at the same timeActive docusate sodium (Colace) 50 MG capsule Take 100 mg by mouth in the morning and 100 mg before bedtime.Active polyethylene glycol, PEG, 3350 (Glycolax) 17 GM/SCOOP powder Take 17 g by mouth DailyActive Alcohol Swabs (Alcohol Prep Pad) 70 % pads Indications:Second trimester ([facility]),13 weeks gestation of ([facility]),Multigravida of advanced maternal age in second trimester ([facility]), Gestational diabetes mellitus (GDM), antepartum, gestational diabetes method of control unspecified([facility]),Elevated glucose tolerance testApply 1 Pad topically Daily Use four times daily to check FSBS. 150 each tive Blood Glucose Monitoring Suppl (D-CloudAccess Glucometer) w/Device kit Indications:Second trimester ([facility]),13 weeks gestation of ([facility]),Multigravida of advanced maternal age in second trimester ([facility]), Gestational diabetes mellitus (GDM), antepartum, gestational diabetes method of control unspecified([facility]),Elevated glucose tolerance test1 kit Daily Use [...] (GDM), antepartum, gestational diabetes method of control unspecified([facility])Take 3 tablets (1,500 mg) by mouth in the evening. Take with meals Do not crush, chew, or split. 90 tablet 5Active Enoxaparin Sodium (Lovenox) 40 MG/0.4ML solution prefilled syringe Indications:Anticoagulant long-term use,Antiphospholipid antibody positive, Antiphospholipid antibody syndrome ([facility])Inject 40 mg as directed Daily for 30 doses 12 mL Expired Active Problems ProblemNoted DateDiagnosed DateH/O loss01/05/2025Multigravida of advanced maternal age in second trimester ([facility])01/05/2025Thyroid zbeoqfg2901/05/2025 Referred otalgia of right ear11/19/2023LPRD (laryngopharyngeal reflux disease) 11/19/2023cute on chronic vesicular eczema of hands and feet11/15/2023lood pressure elevated without history of HTN11/15/2023MI 37.0-37.9, adult11/15/2023 Cold ojxyzmdkbla49/18/2024eviated ahhxel3211/15/2023ry mouth11/15/2023Elevated blood pressure mugimkl6911/15/2023Environmental zmochovpb19/18/2024H/O: pevtsnigxokonv97/18/2024History of nrajof3811/15/2023History of cerebrovascular weqflkvr01/18/2024 Overview (11/15/2023): reported by pt - related to antiphospholipid syndrome History of COVID-19011/15/2023History of gestational kojopewz67/18/2024History of kidney xupozz6111/15/2023Hx of iron deficiency xmikkw0411/15/2023Immunization not carried out because of patient tabgybbe42/18/2024Iron isioxjjoku64/18/2024 Irregular uterine hgqrwayu21/18/2024Morbid sawfpzd2811/15/2023Nasal polyps 11/15/2023Non-xfnzqm1711/15/2023OSA (obstructive sleep apnea)11/15/2023aresthesia of bilateral legs11/15/2023re-/18/2024Right lower quadrant pain 4Right otitis ygdmsrn4611/15/2023Salivary gland kntytuvh21/18/2024Snoring 11/15/2023bdominal pain06/12/2023cute bronchitis due to cbvnrirnb35/13/2024 Ccuzsug2506/12/2023ysfunction of eustachian tube06/12/20231722Mktzrlk45/13/2024 Ahonbkmfytbc22/13/2024Inhalation kpqatf4106/12/2023Lactation problem ([facility]) 06/12/2023sychogenic ysglrbigitmsymfr74/13/2024Suspected severe acute respiratory syndrome coronavirus 2 (SARS-CoV-2) eepybddeh40/13/2024Hypoglycemia 06/12/2023rimary hypercoagulable state ([facility])08/01/2022estational diabetes mellitus (GDM), antepartum ([facility])01/26/2022Genitourinary ldwcbuqr87/22/2022 Muscle dsrkxebnezrqd85/22/2022nticoagulant long-term use02/22/2020 Cerebrovascular accident (CVA) due to stenosis of middle cerebral artery 02/22/2020Anemia complicating childbirth ([facility])01/16/2020First degree perineal laceration during delivery ([facility])01/16/2020Acute posthemorrhagic rwrcyw4701/16/2020Other immediate hemorrhage ([facility])01/16/2020 Personal history of urinary (tract) tncznnzkeu92/18/2020Single live ([facility])01/15/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 ([facility])01/08/2020Pruritus, qualrqscepl19/04/2020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)12/30/201932 weeks gestation of ([facility])11/28/2019Thrombocytopenia, yjqmaewynap28/23/2020Other general symptoms and signs10/28/2019Urinary tract /18/2020 Vkaoaazilhin89/28/2020SVT (supraventricular tachycardia)08/26/2019 Antiphospholipid antibody syndrome ([facility])07/07/2019Other bacterial infections of unspecified site06/27/2019Less than 8 weeks gestation of ([facility]) 06/05/2019Encounter for supervision of normal , unspecified, first trimester ([facility])05/29/2019Cerebral infarction, eqsvbhbheds10/17/2020 Deficiency of other specified B group qrrubbvv82/17/6648Hltivcmixija34/17/2020 Unspecified condition associated with female genital organs and menstrual cycle 05/09/2019Other specified noninflammatory disorders of qqnldl8702/21/2019Frequency of aesxhsmuaua69/23/2019Unspecified ovarian cyst, right side02/06/2019 Geaqcigjzxh38/09/2019Coagulation defect, unspecified ([facility])02/05/2019 Dizziness and ghvxlwqab95/09/2019Long term (current) use of 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/aduiotbdcqqoy55/09/2019Other acute postprocedural pain02/03/2019 Pelvic and perineal pain02/01/2019Syncope and julugwfp22/04/2019Raised antibody titer09/25/2017Migraine without aura and without status migrainosus, not jjgppmzlaxl51/16/2018Antiphospholipid antibody cdclhhoj03/14/2018Fatigue 12/29/2016Idiopathic progressive /01/2017Pain in joint12/29/2016 Estimated Date of PrmvcswuVmogxrvvSuy25/05/2026ased on last menstrual period of 07/28/2024 Encounters DateTypeDepartmentCare VcikOogpgepqldo07/05/2025bstract [facility] [address] [facility] [place] [address] Mya Herrmann, DO 03/03/2025Patient Outreach [facility] [address] [place] [address] Petra Whitmore LPN 02/27/2025linisync Result Encounter [facility] External Department Unsolicited Mya Herrmann, DO 02/23/2025 9:00 AM EDTRoutine [facility] [place] [address] Mya Herrmann, DO Third trimester ([facility]); 30 weeks gestation of ([facility])02/23/2025amboo flowsheet [facility] COLVIN [address] [facility] [facility] [place] [address] Mya Herrmann, DO 02/20/2025linisync Result Encounter [facility] External Department Unsolicited Mya Herrmann, DO 02/20/2025linisync Result Encounter [facility] External Department Unsolicited Mya Herrmann, DO 02/17/2025bstract [facility] [address] [facility] [facility] [place] [address] Mya Herrmann, DO 02/09/2025 10:30 AM [place]TRout[place] [address] Mya Herrmann, DO Third trimester ([facility]); 28 weeks gestation of ([facility]); Anemia complicating childbirth ([facility]); Anticoagulant long-term use; Antiphospholipid antibody positive; Blood pressure elevated without history of HTN; Coagulation defect, unspecified ([facility])02/09/2025bstract [facility] OBGYN [address] [place] [address] Mya Herrmann DO 02/03/2025Patient Outreach [facility] [address] [place] [phone] Petra Whitmore, DEB 01/21/2025Telephone [facility] OBARIELLE [address] [place] [address] Celia Keith NP 01/19/2025 9:00 AM EDTRoutine [facility] Borrero [facility] [place] [address] Mya Herrmann, Second trimester ([facility]); 25 weeks gestation of ([facility]); Gestational diabetes mellitus (GDM), antepartum, gestational diabetes method of control unspecified([facility]); Anticoagulant long-term use; Antiphospholipid antibody positive; Antiphospholipid antibody syndrome ([facility])01/19/2025bstract [facility] COLVIN [address] [place] [address] Mya Herrmann DO 01/15/2025Telephone [facility] [address] [place] [address] Lala Hess MA 01/06/2025Patient Outreach [facility] [address] [place] [address] Petra Whitmore, DEB 01/05/2025 2:40 PM EDTRoutine [facility] COLVIN [address] [place] [phone] Mya Herrmann, DO Second trimester ([facility]); 23 weeks gestation of ([facility]); Thyroid disease ; Gestational diabetes mellitus (GDM), antepartum, gestational diabetes method of control unspecified([facility]); Multigravida of advanced maternal age in second trimester ([facility]); H/O loss; Lightheaded; Wdvnzmjgh45/08/2025Bamboo [place] [address] Mya Herrmann, DO 12/26/2024b[place] [address] Mya Herrmann, DO 5Abstract [facility] COLVIN [address] [place] [address] Mya Herrmann, DO 5Clinisync Result Encounter [facility] External Department Unsolicited Mya Herrmann, DO 5Clinisync Result Encounter [facility] External Department Unsolicited Mya Herrmann, DO 12/12/2024Telephone [facility] COLVIN [address] [place] [phone] Ariane Joseph, VIDEO PRODUCER 12/12/2024Patient Outreach [facility] [address] [place] [address] Petra Whitmore, VIDEO PRODUCER 12/11/2024 9:10 AM EDTRout[place] [address] Mya Herrmann, DO 19 weeks gestation of ([facility]); Second trimester ([facility]); Thyroid disease ; Multigravida of advanced maternal age in second trimester ([facility]); Gestational diabetes mellitus (GDM), antepartum, gestational diabetes method of control unspecified([facility])12/11/2024linisync Result Encounter [facility] External Department Unsolicited Mya Herrmann, DO 12/11/2024amboo flowsheet [facility] [address] [place] [address] [place] [phone] Mya Herrmann, DO 12/08/2024Patient Outreach [facility] [address] [place] [address] Petra Whitmore LPN 12/04/2024bstract [facility] [address] [place] [address] Petra Whitmore LPN from Last 3 Months Family History Medical HistoryRelationNameCommentsCerebrovascular AccidentFatherDiabetesFather Heart problemsMaternal GrandfatherMental illnessMaternal GrandmotherCancer Paternal GrandfatherDiabetesPaternal GrandfatherCancerPaternal Grandmother DiabetesPaternal GrandmotherDiabetesSisterRelationNameStatusCommentsFather Maternal GrandfatherMaternal GrandmotherPaternal GrandfatherPaternal Grandmother Sister Social History Tobacco UseTypesPacks/DayYears UsedDateSmoking Tobacco: NeverSmokeless Tobacco: Never Tobacco Cessation:Counseling Given: Not Answered Alcohol UseStandard Drinks/WeekCommentsNever0 (1 standard drink = 0.6 oz pure alcohol)PHQ-2AnswerDate RecordedPatient Health Questionnaire-2 Aaaxw21205/03/2024 Estimated Date of VdchqzvnAayhoudrIrr10/05/2026ased on last menstrual period of 07/28/2024Sex and Gender InformationValueDate RecordedSex Assigned at BirthNot on fileLegal OjfTglyqb07/15/2023 11:19 PM EDTGender IdentityNot on file Sexual OrientationNot on file Last Filed Vital Signs Vital SignReadingTime TakenCommentsBlood Kfwhrumz508/7202/23/2025 9:26 AM EDT Pulse--Temperature--Respiratory Rate--Oxygen Saturation--Inhaled Oxygen Concentration--Kqwptg77.5 kg (210 lb 8 oz)02/23/2025 9:26 AM CSUCslsat553.6 cm (5' 6 )11/19/2023 1:48 PM EDTBody Mass Index33.9807 1:48 PM EDT Plan of Treatment DateTypeDepartmentCare Team (Latest Contact Info)Ghwmjltkxte30/11/2025 9:50 AM ESTRoutine [facility] [address] [place] [address] Mya Herrmann, [address] [place] [address] Health MaintenanceDue DateLast DoneCommentsHPV/Wmefqk5710/22/2015COVID-19 Vaccine ( season)2024Influenza Vaccine (#1)5Cervical Cancer Nozwlbooh39/18/2025Pap Smear2Pneumococcal Vaccine: Pediatrics (0 to 5 Years) and At-Risk Patients (6 to 64 Years)Aged OutNo longer eligible based on patient's age to complete this topic Procedures Procedure NamePriorityDate/TimeAssociated DiagnosisCommentsUS OB BPP W NON-GFCQLC9402/27/2025 10:53 AM EDT POCT URINALYSIS ZSOHSNSGAaarkvh76/27/2025 9:38 AM EDT 30 weeks gestation of ([facility]) US OB LSXAUA1002/20/2025 8:37 AM EDT US OB BPP W NON-KWCWVX7702/20/2025 8:37 AM EDT POCT URINALYSIS ERQDQIYANkufuvy50/13/2025 10:55 AM EDT 28 weeks gestation of ([facility]) POCT URINALYSIS LQGDMNSHPpzmgtj31/22/2025 9:33 AM EDT Second trimester ([facility]) POCT URINALYSIS IHBIOMVIIxpwplq66/08/2025 3:25 PM EDT Second trimester ([facility]) US OB CERVICAL QPUFXT1312/16/2024 8:41 PM EDT [facility] URINE MICROSCOPIC EZCGQcywneu74/19/2025 6:32 PM EDT [facility] UA (CLEAN/CATCH) SHEET METAL DUCT INSTALLER HELPER/MICRO IF IND.Iocbulp5712/16/2024 6:32 PM EDT ALL THYROID STIM ORDFQSIGjdpctg41/14/2025 10:50 AM EDT POCT URINALYSIS NFYNLJZHQktmiag75/14/2025 9:36 AM EDT 19 weeks gestation of ([facility]) Second trimester ([facility]) PAP ZHCXVHqmuntd85/18/2022 12:00 AM EDTfrom Last 3 Months or Most Recently Relevant to Health Maintenance Results * US OB BPP W NON-STRESS (02/27/2025 10:53 AM EDT) Only the most recent of2 resultswithin the time period is included. Anatomical RegionLateralityModalityOtherSpecimen (Source)Anatomical Location / LateralityCollection Method / VolumeCollection TimeReceived Time02/27/2025 10:53 AM EDT Narrative 02/27/2025 10:56 AM EDT [facility] ?[address] ? [place] [address] ? Ultrasound Report ? Signed ? Patient: MADHU RENDON ?MR#: [id number] ?? : 1985 ?Acct:[id number] ?? Age/Sex: 39 / F ?ADM Date: 02/26/25 ?? Loc: US ? Attending Dr: Mya Herrmann D.O. ? Ordering Physician: Mya Herrmann D.O. ?? Date of Service: 02/26/25 ?? Procedure(s): US OB BPP w non-stress ?? Accession Number(s): [id number] ? cc: Mya Herrmann D.O.; Physician,Non-Staff M.D. ? [facility] ? [address] ? [place] [address] ? Patient Name: ?? MADHU RENDON ? MRN: [facility]:[id number] ? date: 1985 ?Sex: F ?? Assigned Patient Location: US ?? Current Patient Location: ? Accession/Order Number: [id number] ?? Exam Date: 02/26/2025 ??19:42 ?Report Date: [...] Dictation Location: RADIO-PC-02 ? Electronically authenticated by: [id number] ??Y ?? Date: 02/27/2025 ??10:53 ? Dictated By: ?Pamela Pisano M.D. ? Signed By: ?02/27/25 1056 ? DD/ 1053 ? TD/TT: ? Marine Water Tender: Procedure Note Radiology, Radiologist, - 02/27/2025 [place] [id number] Ultrasound Report Signed Patient: MADHU RENDON [facility]#: [id number] : 1985Acct:[id number] Age/Sex: 39 / FADM Date: 02/26/25 Loc: US Attending Dr: Mya Herrmann D.O. Ordering Physician: Mya Herrmann D.O. Date of Service: 02/26/25 Procedure(s): US OB BPP w non-stress Accession Number(s): [id number] cc: Mya Herrmann D.O.; Physician,Non-Staff Tamia [facility] [place] [id number] Patient Name: MADHU RENDON MRN: [facility]:[id number] date: 1985 Sex: F Assigned Patient Location: Current Patient Location: Accession/Order Number: [id number] Exam Date: 02/26/2025 19:42 Report Date: 02/27/2025 [...] Pisano M.D. 02/27/2025 10:53 AM Dictation Location: [place] [address] Electronically authenticated by: [id number] Y Date: 0:53 Dictated By: Pamela Pisano M.D. Signed By:02/27/25 1056 DD/ 105 TD/TT: Marine Water Tender: Authorizing ProviderResult TypeResult StatusCorey Montez DOCLINISYNC IMAGINGFinal [...] Location / LateralityCollection Method / VolumeCollection TimeReceived ZwmmGypdn95/27/2025 9:38 AM EDT Narrative Authorizing ProviderResult TypeResult StatusCorey Montez DOPOINT OF CARE TEST ENTER/EDIT ORDERABLESFinal Result * US OB GROWTH (02/20/2025 8:37 AM EDT)Anatomical RegionLateralityModalityOther Specimen (Source)Anatomical Location / LateralityCollection Method / Volume Collection TimeReceived Time02/20/2025 8:37 AM EDT Narrative 02/20/2025 8:40 AM EDT [facility] ?[address] ? [place] [address] ? Ultrasound Report ? Signed ? Patient: MADHU RENDON ?MR#: [id number] ?? : 1985 ?Acct:[id number] ?? Age/Sex: 39 / F ?ADM Date: 02/19/25 ?? Loc: US ? Attending Dr: Mya Herrmann D.O. ? Ordering Physician: Mya Herrmann D.O. ?? Date of Service: 02/19/25 ?? Procedure(s): US OB growth ?? Accession Number(s): [id number] ? cc: Mya Herrmann D.O.; Physician,Non-Staff M.D. ? [facility] ? [address] ? [place] [address] ? Patient Name: ?? MADHU RENDON ? MRN: [facility]:[id number] ? date: 1985 ?Sex: F ?? Assigned Patient Location: LAB ?? Current Patient Location: ? Accession/Order Number: [id number] ?? Exam Date: 02/19/2025 ??19:47 ?Report Date: [...] Dictation Location: RADIO-PC-02 ? Electronically authenticated by: [id number] ??Y ?? Date: 02/20/2025 ??08:37 ? Dictated By: ?Pamela Pisano M.D. ? Signed By: ?//25 0840 ? DD/ 0837 ? TD/TT: ? Marine Water Tender: Procedure Note Radiology, Radiologist, MD - 02/20/2025 [place] [id number] Ultrasound Report Signed Patient: MADHU RENDON SMR#: [id number] : 1985Acct:[id number] Age/Sex: 39 / FADM Date: 02/19/25 Loc: US Attending Dr: Mya Herrmann D.O. Ordering Physician: Mya Herrmann D.O. Date of Service: 02/19/25 Procedure(s): US OB growth Accession Number(s): [id number] cc: Mya Herrmann D.O.; Physician,Non-Staff M.DLazara [facility] [place] [id number] Patient Name: MADHU RENDON MRN: [facility]:[id number] date: 1985 Sex: F Assigned Patient Location: LAB Current Patient Location: Accession/Order Number: [id number] Exam Date: 02/19/2025 19:47 Report Date: 02/20/2025 [...] Pisano M.D. 02/20/2025 8:37 AM Dictation Location: [place] [address] Electronically authenticated by: [id number] Y Date: 508:37 Dictated By: Pamela Pisano M.D. Signed By:02/20/25 0840 DD/ 0837 TD/TT: Marine Water Tender: Authorizing ProviderResult TypeResult StatusCorey Montez DOCLINISYNC IMAGINGFinal Result * US OB CERVICAL LENGTH (12/16/2024 8:41 PM EDT)Anatomical RegionLaterality ModalityOtherSpecimen (Source)Anatomical Location / LateralityCollection Method / VolumeCollection TimeReceived Time12/16/2024 8:41 PM EDT Narrative 12/16/2024 8:43 PM EDT [facility] ?[address] ? [place] [address] ? Ultrasound Report ? Signed ? Patient: MADHU RENDON ?MR#: [id number] ?? : 1985 ?Acct:[id number] ?? Age/Sex: 39 / F ?ADM Date: ?? Loc: [facility] ??251-1 ? Attending Dr: Mya Herrmann D.O. ? Ordering Physician: Mya Herrmann D.O. ?? Date of Service: 12/16/24 ?? Procedure(s): US OB cervical length ?? Accession Number(s): [id number] ? cc: Mya Herrmann D.O.; PENELOPE CASAS ? [facility] ? [address] ? [place] [address] ? Patient Name: ?? MADHU RENDON ? MRN: [facility]:[id number] ? date: 1985 ?Sex: F ?? Assigned Patient Location: [facility] ?? Current Patient Location: ? Accession/Order Number: [id number] ?? Exam Date: 12/16/2024 ??20:39 ?Report Date: [...] M.D. ??12/16/2024 8:41 PM ? Dictation Location: [facility]-PC-20 ? Electronically authenticated by: [id number] ??Y ?? Date: 12/16/2024 ??20:41 ? Dictated By: ?Robert Beltrán D.O. ? Signed By: ?12/16/242042 ? DD/ 40 ? TD/TT: ? Marine Water Tender: Procedure Note Radiology, Radiologist, - 12/16/2024 [place] [id number] Ultrasound Report Signed Patient: MADHU RENDON [facility]#: [id number] : 1985Acct:[id number] Age/Sex: 39 / FADM Date: Loc: [facility] 251-[address]: Mya Herrmann D.O. Ordering Physician: Mya Herrmann D.O. Date of Service: 12/16/24 Procedure(s): US OB cervical length Accession Number(s): [id number] cc: Mya Herrmann D.O.; PENELOPE CASAS [place] [id number] Patient Name: MADHU RENDON MRN: [facility]:[id number] date: 1985 Sex: F Assigned Patient Location: [facility] Current Patient Location: Accession/Order Number: [id number] Exam Date: 12/16/2024 20:39 Report Date: 12/16/2024 [...] Beltrán M.D. 12/16/2024 8:41 PM Dictation Location: [place] [address] Electronically authenticated by: [id number] Y Date: 0:41 Dictated By: Robert Beltrán D.O. Signed By:12/16/242042 DD/ 40 TD/TT: Marine Water Tender: Authorizing ProviderResult TypeResult StatusCorey Montez DOCLINISYNC IMAGINGFinal Result * (ABNORMAL) TB URINE MICROSCOPIC ONLY (12/16/2024 6:32 PM EDT)ComponentValue Ref RangeTest MethodAnalysis TimePerformed AtPathologist SignatureTBH WBC2-5 (A)NONE SEEN #/HPFTBHTBH RBC0-20 - 2 #/HPFTBHBACTERIA URINESMALL(A)NONE SEEN #/HPFTBHMUCUS URINENONE SEENNONE SEENTBHSQUAMOUS EPITHELIAL CELL URINEMANY(A) NONE/RARE #/LPFTBHCRYSTALS SEEN?None SeenNone Seen #/HPFTBHCAST SEEN?NONE SEEN NONE SEEN #/LPFTBHURINE CULTURE INDICATEDYES-LCTBHSpecimen (Source)Anatomical Location / LateralityCollection Method / VolumeCollection TimeReceived Time 12/16/2024 6:32 PM EDT12/16/2024 6:40 PM EDT Narrative CLINISYOR - 12/16/2024 7:09 PM EDT Authorizing ProviderResult TypeResult StatusCorey Montez DOCLINISYNCFinal Result Performing OrganizationAddressCity/State/ZIP CodePhone Number [facility] * (ABNORMAL) [facility] UA (CLEAN/CATCH) SHEET METAL DUCT INSTALLER HELPER/MICRO IF IND. (12/16/2024 6:32 PM EDT) ComponentValueRef RangeTest MethodAnalysis TimePerformed AtPathologist SignatureCOLOR URINELT. YELLOWYELLOWTBHCLARITY URINECLEARCLEARTBHSPECIFIC GRAVITY URINE<=1.005(A)1.005 - 1.025TBHPH URINE6.05.0 - 9.0TBHPROTEIN URINE NEGATIVENEG/TRACE mg/dLTBHGLUCOSE URINE UANEGATIVENEGATIVE mg/dLTBHBILIRUBIN URINENEGATIVENEGATIVETBHKETONES URINENEGATIVENEGATIVE mg/dLTBHBLOOD URINE NEGATIVENEGATIVETBHNITRITE URINENEGATIVENEGATIVETBHUROBILINOGEN URINE0.20.2 - 1.0 EU/dLTBHLEUKOCYTE ESTERASE URINESMALL(A)NEGATIVETBHURINE MICROSCOPIC INDICATEDYESTBHSpecimen (Source)Anatomical Location / LateralityCollection Method / VolumeCollection TimeReceived Time12/16/2024 6:32 PM EDT12/16/2024 6:40 PM EDT Narrative [facility] - 12/16/2024 7:09 PM EDT Authorizing ProviderResult TypeResult StatusCorey Montez DOCLINISYNCFinal Result Performing OrganizationAddressCity/State/ZIP CodePhone Number [facility] * ALL THYROID STIM HORMONE (12/11/2024 10:50 [...] Date Penelope Casas MD [address] [place] [address] PCP - GeneralFamily Medicine11/07/23
--- OUTSIDE RECORDS SUMMARY | 2025-03-05 19:10 | XMS_ITS | Clinical Summary ---
Author Organization [facility] Address [address], [address] [place] [address] Care Team Providers Care Table Games Dual Rate Supervisor Name Role Phone Evans Casas DO Primary Care Provider [phone] Allergies Active AllergyReactionsCriticalityNoted DateCommentsCiprofloxacinOther (See Comments)06/19/2019Ciprofloxacin-Fluocinolone PfOther [...] elevated without history of HTN12/11/2023ry mouth 12/11/2023Environmental ylpnlcidl09/13/2024H/O: knuohptzffumyg79/13/2024History of iuwxyv5012/11/2023History of gestational dazphkuy59/13/2024History of kidney gkokse1512/11/2023Hx of iron deficiency ltdxzf0612/11/2023Immunization not carried out because of patient uydsxchk40/13/2024Morbid iyeusvu0012/11/2023Non-smoker 12/11/2023OSA (obstructive sleep apnea)12/11/2023ight otitis dessclo6912/11/2023 Abdominal pain06/12/2023cute bronchitis due to dxjmqwjyl82/13/2024nxiety 06/12/2023ysfunction of eustachian tube06/12/20235725Buvmekc96/13/2024Hematochezia 06/12/2023History of severe acute respiratory syndrome coronavirus 2 (SARS-CoV-2) agbakgj7006/12/20239153Iufczvztrtef65/13/2024Inhalation jgggho9506/12/2023 wuhswgy5906/12/2023sychogenic vbxdchoddjkoxujw69/13/2024Suspected severe acute respiratory syndrome coronavirus 2 (SARS-CoV-2) udpznlvju38/13/2024 Primary hypercoagulable state08/01/2022estational diabetes mellitus in , unspecified sicwvco5801/26/2022Genitourinary mgtdjsio10/22/2022Muscle fnoebyuajomaf76/22/2022TIA (transient ischemic attack)06/16/2020erebrovascular accident (CVA) due to stenosis of middle cerebral yuvxkq9102/22/2020Anticoagulant long-term use02/22/2020Acute posthemorrhagic wykbny9701/16/202039 weeks gestation of vpgqguxeg14/18/2020Anemia complicating /18/2020Endocrine, nutritional and metabolic diseases complicating gugrhzxvzo52/18/2020First degree perineal laceration during wiqjimem69/18/2020Other immediate agthizjeln03/18/2020Personal history of transient ischemic attack (TIA), and cerebral infarction without residual ipxyytrt43/18/2020Personal history of urinary (tract) kmbtdrteni86/18/2020Single live birth01/15/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01/08/202038 weeks gestation of heulnvazx65/09/2020Pruritus, qqtoglkgzrd75/04/202037 weeks gestation of hheiutqwp89/04/357804 weeks gestation of lausxskij73/01/2020Other speech and language deficits following cerebral /01/2020Other diseases of the blood and blood-forming organs and certain disorders involving the immune mech anism complicating ohlsvhkjwu61/25/525081 weeks gestation of sygythzte80/24/2020 34 weeks gestation of tojyfuybp67/18/824886 weeks gestation of 12/10/201932 weeks gestation of vdcckoysm84/31/2020Thrombocytopenia, unspecified 11/20/2019Other general symptoms and signs10/28/2019Urinary tract infection, site not vbzpyesud73/18/0356Aururiqfcdfs61/28/2020SVT (supraventricular tachycardia)08/26/2019Antiphospholipid antibody efugaaww68/09/2020Other bacterial infections of unspecified site06/27/2019Less than 8 weeks gestation of zyzgrpzqc56/06/2020Encounter for supervision of normal , unspecified, first gvotpnvtj25/30/2095Qnyfxpotvrlb87/17/2020Cerebral infarction, unspecified 05/16/2019Paresthesia of skin05/16/2019Deficiency of other specified B group hmqtnint45/17/2020Hypothyroidism, djizzofcdxg44/17/2020Unspecified condition associated with female genital organs and menstrual cycle05/09/2019Vomiting of , ytqysmfycil67/06/2020Other specified noninflammatory disorders of qtmzxv1602/21/2019Frequency of tufokfgtgou22/23/2019Unspecified ovarian cyst, right side02/06/2019Coagulation defect, mpotnvnidrq12/09/2019Cervicalgia 02/05/2019Long term (current) use of 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/dgqmmgkwcxehk11/09/2019 Dizziness and lhrhtxybo32/09/2019Other acute postprocedural pain02/03/2019Pelvic and perineal pain02/01/2019Syncope and /04/2019Anticardiolipin antibody lfytvyfd26/29/2018Migraine without aura and without status migrainosus, not cyeqhqlasot28/16/2018Antiphospholipid antibody taxfrkkx08/14/2018Pain in joint12/29/20169458Hiswgpg77/01/2017Idiopathic progressive qhbjxzokvd98/01/2017 Resolved Problems ProblemNoted DateDiagnosed DateResolved YnwjZknfe35/ Encounters DateTypeDepartmentCare CngcYiuasycvwpr13/24/2025 2:30 PM EDTOffice Visit [facility] [address] [place] [address] [place] [phone] Peng Osorio MD Antiphospholipid antibody syndrome (Primary [...] InformationValueDate RecordedSex Assigned at BirthNot on fileLegal UqwLdlxyi86/14/2017 2:04 PM EDT Gender IdentityNot on fileSexual OrientationNot on file Last Filed Vital Signs Vital SignReadingTime TakenCommentsBlood Dprjlarr947/6409 2:40 PM EDT Ezyge753801/21/2025 2:40 PM OHEMchwoillujs80.2 ??C (97.2 ??F)02/09/2022 11:22 AM EDTRespiratory Saln5896 11:22 AM EDTOxygen Eqhlinexya60%10/04/2020 2:01 PM EDTInhaled Oxygen Concentration--Fqrrlr50.8 kg (209 lb)01/21/2025 2:40 PM EDT Jsonso623.6 cm (5' 6 )02/09/2022 11:22 AM EDTBody Mass Index33.7302/09/2022 11:22 AM EDT Plan of Treatment DateTypeDepartmentCare Team (Latest Contact Info)Byvsynswtlr51/25/2026 1:45 PM EDTOffice Visit [facility] [address] [place] [address] [place] [phone] Peng Osorio MD [address] [place] [address] [place] [phone] 6 MOS FUPHealth MaintenanceDue DateLast DoneCommentsDepression Whypxx0810/21/1997 Varicella vaccine (1 of 2 - 13+ 2-dose series)1998Hepatitis C screen 10/22/2003Hepatitis B vaccine (1 of 3 - 19+ 3-dose series)2004Pap smear 2006Cervical cancer lxziyw7410/22/2015HPV (without or with Pap)10/22/2015 DTaP/Tdap/Td vaccine (2 [...] Procedure NamePriorityDate/TimeAssociated DiagnosisCommentsHIV-1,-2 W/REFLEX TO HIV-1 WESTERN EIFLFtvwpgb18/01/2017 11:49 AM EDT Arthralgia, unspecified joint Fatigue, unspecified type Sensation disorder from Last 3 Months or Most Recently Relevant to Health Maintenance Results * Hiv-1,-2 W/Reflex To Hiv-1 Western Blot (12/29/2016 11:49 AM EDT)Component ValueRef RangeTest MethodAnalysis TimePerformed AtPathologist Signature HIV-1/HIV-2 ElHplgoapgAkikqoon10/03/2017 12:03 AM [facility] Comment: Based on the non-reactive anti-HIV (BRENDEN) screen, the HIV Western blot is not indicated and therefore not performed. INTERPRETIVE INFORMATION: HIV-1,-2 w/Reflex to HIV-1 Western Blot This assay should not be used for blood donor screening, associated re-entry protocols, or for screening Human Cells, Tissues and Cellular and Tissue-Based Products (HCT/P). Performed by [facility], [facility] [place] [address] www.[employer], Zhang Bledsoe MD - Lab. Director Specimen (Source)Anatomical Location / LateralityCollection Method / Volume Collection TimeReceived TimeBLOOD SPECIMEN / Ahfmhgn4812/29/2016 11:49 AM EDT 12/29/2016 1:50 PM EDT Narrative Authorizing ProviderResult TypeResult StatusRitiki Monroe MDHEMATOLOGY ORDERABLES Final ResultPerforming OrganizationAddressCity/State/ZIP CodePhone Number [facility] [address] [place] [address], [facility] [phone] from Last 3 Months or Most Recently Relevant to Health Maintenance Insurance Care Teams Team MemberRelationshipSpecialtyStart DateEnd Date Evans Casas DO [address] [place] [address] PCP - GeneralFamily Medicine10/04/20
--- OUTSIDE RECORDS SUMMARY | 2025-03-05 19:10 | XMS_ITS | CCD ---
Author Organization [facility] Care Team Providers Care Pipelines Manager Name Role Phone CROW MONGE R Unavailable Unavailable BIBI CHRISTY Unavailable Unavailable ERIKA LONDON Attending Unavailab ERIKA Haddad Referring Unavailab Haseeb Chavez Attending Unavailable Crow Monge Referring Unavailable Humaira Gaviria MD Primary Care Provider Jonny Wilcox MD Unavailable [phone] Penelope CASAS Primary Care Physician [phone] Cheri Norwood Unavailable Unavailable Cosmo Elliott MD Unavailable [phone] Lauro RN, Davida Unavailable [phone] Penelope Casas Primary Care Provider PENELOPE CASAS Primary Care Unavailable TOD LOPEZ Referring Unavailable Humaira Gaviria MD Primary Care Provider [phone] Jonny Wilcox MD P Unavailable [phone] Cosmo Elliott MD R Unavailable Lauro RN, Davida Unavailable [phone] Penelope Casas DO Primary Care Provider Jonny Wilcox MD P Unavailable [phone] Cosmo Elliott MD R Unavailable Lauro LARSON, Davida Unavailable [phone] Penelope Casas DO Primary Care Provider DR WILTON HERRMANN Primary Care Unavailable DR WILTON HERRMANN Admitting Unavailable MONTEZ, DR ROQUE Attending Unavailable KARASIK, DR ACUNA Consulting Unavailable KARASIK, DR ACUNA Admitting Unavailable KARASIK, DR ACUNA Attending Unavailable MONTEZ, DR ROQUE Primary Care Unavailable MONTEZ, DR ROQUE Consulting Unavailable ZIEBER, DR HUMERA Palmer Consulting Unavailable MONTEZ, DR ROQUE Admitting Unavailable MONTEZ, DR ROQUE Attending Unavailable MONTEZ, DR ROQUE Primary Care Unavailable NOR[place], DR ANGIE Luna Consulting Unavailable MONTEZ, DR [...] DR ROQUE Primary Care Unavailable MONTEZ, DR RQOUE Consulting Unavailable MONTEZ, DR ROQUE Admitting Unavailable [...] HARIKA Tony Admitting Unavailable ZIEBER, DR HUMERA Plamer Consulting Unavailable MONTEZ, DR ROQUE Consulting Unavailable [...] MONTEZ, DR ROQUE Consulting Unavailable MONTEZ, DR ROUQE Admitting Unavailable MONTEZ, DR ROQUE Primary Care [...] Jonny Tsai Unavailable Lauro LARSON, Davida Unavailable Penelope Casas DO Primary Care Provider Penelope CASAS Admitting Unavailable KAPBEN, Penelope Tony Attending Unavailable KAPBEN, Penelope Tony Admitting Unavailable KAPBEN, Penelope Tony Attending Unavailable Benny Uribe Attending Unavailable NELI DUNHAM Attending Unavailbrandon e HalTaylor Attending Unavailable HalTaylor Attending Unavailable KAPBEN, Penelope Tony Attending Unavailable KAPBEN, Penelope Tony Attending Unavailable KAPBEN, Penelope Tony Attending Unavailable KAPBEN, Penelope Tony Attending Unavailable KAPBEN, Penelope Tony Attending Unavailable KAPPenelope CONTRERAS Attending Unavailable Lourdes Garber Attending Unavailab Penelope Lion Attending Unavailable Monica Saba Admitting Unavailable Monica Saba Attending Unavailable Monica Saba Referring Unavailable CROW MONGE Consulting Unavailable MD CROW MONGE Consulting Unavailable Lourdes Garber Attending Unavailab Monica Escobar Admitting Unavailable Monica Saba Attending Unavailable Monica Saba Referring Unavailable Benny Uribe Attending Unavailable KAPPenelope CONTRERAS Attending Unavailable Monica Saba Attending Unavailable KAPPenelope [...] Unavailable Penelope Casas MD Primary Care Provider Montez DOChalinoy Attending Provider [phone] Montez, Wilton Attending Unavailable Montez, Wilton Admitting Unavailable Gudimella, Anni Attending Unavailable Merlindimella, Anni Attending Unavailable Penelope CASAS Attending Unavailable PRAVEEN, Penelope Tony Attending Unavailable MONTEZ, Wilton R Admitting Unavailable MONTEZ, Wilton R Attending Unavailable Penelope CASAS Admitting Unavailable KAPBEN, Penelope Tony Attending Unavailable KAPPenelope CONTRERAS Attending Unavailable Penelope CASAS Attending Unavailable MONTEZ, Wilton R Admitting Unavailable MONTEZ, Wilton R Attending Unavailable BLAKEABI Attending Unavailable MONTEZ, Wilton R Attending Unavailable MONTEZ, Wilton R Admitting Unavailable MONTEZ, Wilton R Admitting Unavailable MONTEZ, Wilton R Attending Unavailable Inez Wakefield Attending Unavailable Inez Wakefield Admitting Unavailable Visci, Farhat Tony Attending Unavailable Visci, Farhat Cecily Admitting Unavailable Inez Wakefield Attending Unavailable Inez Wakefield Admitting Unavailable MONTEZ, Wilton R Attending Unavailable MONTEZ, Wilton R Admitting Unavailable Romulo Chiu Attending Unavailable Penelope CASAS Attending Unavailable MONTEZ, Wilton R Attending Unavailable MONTEZ, Wilton R Admitting Unavailable JESSICA BACA Attending Unavailabl e Inez Wakefield Attending Unavailable Penelope CASAS Attending Unavailable Penelope Casas DO Primary Care Provider MONTEZ, Wilton R Attending Unavailable MONTEZ, Wilton R Admitting Unavailable MONTEZ, Wilton R Admitting Unavailable MONTEZ, Wilton R Attending Unavailable MONTEZ, Wilton R Attending Unavailable MONTEZ, WILTON R Referring Unavailable PENELOPE CASAS Primary Care Unavailable MUKUL NOYOLA Attending Unavailable MONTEZ, WILTON R Referring Unavailable PENELOPE CASAS Primary Care Unavailable MONTEZ, WILTON R Referring Unavailable PENELOPE CASAS Primary Care Unavailable Penelope Cassa MD Primary Care Provider MONTEZ, Wilton R Admitting Unavailable MONTEZ, Wilton R Attending Unavailable MONTEZ, Wilton R Referring Unavailable CINDY MILLER Attending Unavailable MONTEZ, WILTON R Referring Unavailable KAPLE, PENELOPE A Primary Care Unavailable TORI, ALISA Attending Unavailable KAPLE, PENELOPE A Referring Unavailable KAPLE, PENELOPE A Primary Care Unavailable TORI, ALISA Attending Unavailable KAPLE, PENELOPE A Referring Unavailable KAPLE, PENELOPE A Primary Care Unavailable TORI, ALISA Attending Unavailable MONTEZ, WILTON R Referring Unavailable KAPLE, PENELOPE A Primary Care Unavailable ROXANA MAYS Attending Unavailable KAPLE, PENELOPE A Referring Unavailable KAPLE, PENELOPE A Primary Care Unavailable DOCHEVA, MISSYOLINCecily P Attending Unavailable MONTEZ, WILTON R Referring [...] WILTON Attending Unavailable MONTEZ, WILTON Attending Unavailable PENELOPE, KATHERINE Attending Unavailable KAPLE, PENELOPE A Primary Care Unavailable ABHYANKAR, KRISTOFER Referring Unavailable KAPLE, PENELOPE A Primary Care Unavailable ABHYANKAR, KRISTOFER Attending Unavailable ABHYANKAR, KRISTOFER Referring Unavailable KAPLE, PENELOPE A Primary Care Unavailable KAPLE, PENELOPE A Primary Care Unavailable PENELOPE, KATHERINE Attending Unavailable ABHYANKAR, KRISTOFER Referring Unavailable KAPLE, PENELOPE A Primary Care Unavailable KAPLE, PENELOPE A Primary Care Unavailable PENELOPE, KATHERINE Attending Unavailable ABHYANKAR, KRISTOFER Referring Unavailable KAPLE, PENELOPE A Primary Care Unavailable KAPLE, PENELOPE A Primary Care Unavailable Allergies Allergy ClassificationReported Allergen(s)Allergy TypeDate of OnsetReaction(s) Facility (20 sources)Ciprofloxacin; Translations: [ciprofloxacin]Drug Yoroorr05-98-1215 Other: See Comments, Unknown, Numbness and tingling sensation of skin (finding), Nausea (finding), Other (See Comments), GI intolerance, [facility]iness[facility] Work Phone: (20 sources)Ciprofloxacin / fluocinolone; Translations: [CIPROFLOXACIN-FLUOCINOLONE]Drug Fyxzemh79-96-5402Avslv: See CommentsTrihealth (20 sources)cow milk allergenic extract; Translations: [MILK]Drug Allergy 29-59-6118Ucdpi: See CommentsTrihealth Work Phone: (20 sources)Lactalbumin; Translations: [LACTALBUMIN]Drug Bvztlze87-12-1607 Unknown, GI Upset, Other (See Comments)[facility] (20 sources)Lactose; Translations: [LACTOSE]Drug Oandxle49-70-5413IM Upset, GI DisturbanceTrihealth (20 sources)MilkDrug Ldpcqfu63-10-2818Bofzl: See Comments, Other (See Comments) [facility] (6 sources)PenicillinsDrug Tkekiev75-29-2699AlfgatfQprvplptv Clinic (20 sources)Seasonal allergy; Translations: [SEASONAL ALLERGIES]Allergy to jlpfnifdg02-22-6787UH Upset, Other: See [facility] Work Phone: (20 sources)Milk Products; Translations: [Milk Products]Drug allergyIllness (finding)[facility] (20 sources)Ciprofloxacin / fluocinoloneDrug Gknvsnn69-25-8538Vstpw (See Comments)[facility] Work Phone: (1 source)Seasonal allergyPropensity to adverse reactions to aomybmtie04-86-7010 Other (See Comments)[facility] Work Phone: (1 source)Milk-Related CompoundsPropensity to adverse reactions to drug 63-88-6549Suxwb (See Comments)[facility] Work Phone: (2 sources)PenicillinsDrug Lbbpkrd48-97-3805LprtwfpNvjxznhcu Clinic (1 source)CiprofloxacinDrug Fsyzgpx66-03-5032Clq[facility] (20 sources)Lactose (non-medical use)Propensity to adverse oebskryll57-44-9392 [facility] (20 sources)Lactose (non-medical use)Drug Znbpagm26-54-8191[facility] (20 sources)OctacosanolDrug Hwfkfgegfvb11-75-8018[facility] (20 sources)OtherAllergy to zlcriglrz55-76-8137RqzerPQUT [facility] Work Phone: (3 sources)MILK CONTAINING PRODUCTS (DAIRY); Translations: [MILK CONTAINING PRODUCTS (DAIRY)]Propensity to adverse reactions to drug (disorder)05-25-2017 [facility] Rep[facility] Medications Current Medications MedicationDrug Class(es)DatesSig (Normalized)Sig (Original)acetaminophen 300 mg / codeine phosphate 30 mg oral tablet (1 source)Opioid AgonistStart: 86-57-5739qdyecaarrqvzq-codeine (TYLENOL #3) 300- 30 MG per tabletAlbuterol (Eqv-ProAir HFA) 90 mcg/inh inhalation aerosol (6 sources)Start: 90-04-5812cngm 2 puff(s) by inhalation every six hours Albuterol (Eqv-ProAir HFA) 90 mcg/inh inhalation aerosol 2 puff(s), Inhalation, q6hr, 1 EA, Refill(s) 5, [facility], 168, cm, 02/02/24 14:43:00 EDT, Height/Length Dosing, 101.1, kg, 02/02/24 14:43:00 EDT, Weight Dosing Start Date: 02/02/24 Status: Orderedazithromycin 250 mg oral tablet (20 sources)Macrolide AntimicrobialStart: 09-08-2024 End: 77-94-2405tufyjreqkjcg (Zithromax Z-Jonny) 250 MG tablet Indications: 5 weeks gestation of ([facility]) As directed 6 tablet 09/08/2024 10/30/2024 Discontinued (Therapy completed)Start: 06-19-2024 End: 71-10-5121Uhzzhpltp 250 mg Tab = 1 packet(s), Oral, As Directed, as directed on package labeling, X 5 day(s),# 6 tab(s), Refills(s) 1, Pharmacy: [facility], 168, cm, 06/09/24 14:03:00 EST, Height/Length Dosing, 98.4, kg, 06/19/24 16:19:00 EST, Weight Dosing Start Date: 06/19/24 Stop Date: 06/29/24 Status: OrderedStart: 04-21-2024 End: 76-87-9756lmifudwymvio (Zithromax Z-Jonny) 250 MG tablet Indications: Upper respiratory tract infection, unspecified type As directed 6 tablet 04/21/2024 05/06/2024 Discontinuedazithromycin 250 mg Tab 5-day Dose Pack (Z-Jonny) (2 sources)Start: 02-02-2024 End: 15-23-9822colbfpenodki 250 mg Tab 5-day Dose Pack (Z-Jonny) = 1 packet(s), Oral, As Directed, as directed on package labeling, X 5 day(s), # 6 tab(s), Refills(s) 0, Pharmacy: [facility], 168, cm, 02/02/24 14:43:00 EDT, Height/Length Dosing, 101.1, kg, 02/02/24 14:43:00 EDT, Weight Dosing Start Date:02/02/24 Stop Date: 02/07/24 Status: OrderedBlood Glucose Monitoring Suppl (D-Care Glucometer) w/Device kit (20 sources)Start: 10-30-2024 End: 63-90-2470Xmszi Glucose Monitoring Suppl (D-Care Glucometer) w/Device kit Indications: Second trimester ([facility]) , 13 weeks gestation of ([facility]) , Multigravida of advanced maternal age in second trimester ([facility]) , Gestational diabetes mellitus (GDM), antepartum, gestational diabetesmethod of control unspecified ([facility]) , Elevated glucose tolerance test 1 kit Daily Use four times daily to check FSBS. In the morning prior to breakfast & 1 hour after each meal for a total yo7lnfgq daily. 1 kit 10/30/2024 10/30/2025 Activeblood-glucose meter (BLOOD GLUCOSE MONITORING) kit (20 sources)blood-glucose meter (BLOOD GLUCOSE MONITORING) kit 1 each by other route in the morning. Use to check blood sugar 4 times daily . Activeblood- glucose sensor (FREESTYLE JENIFER 3 PLUS SENSOR) device (12 sources)Start: 93-71-1743kbos 2 doses by mouth onceblood-glucose sensor (FREESTYLE JENIFER 3 PLUS SENSOR) device Indications: Gestational diabetes mellit us (GDM) in second trimester controlled on oral hypoglycemic drug Wear for 15 days and change 2 each 6 12/26/2024 Activecephalexin 500 mg oral tablet (20 sources)Cephalosporin AntibacterialStart: 08-19-2021 End: 67-94-0848cpnk 1 tablet by mouth twice dailycephalexin 500 mg oral tablet 500 mg = 1 tab(s), Oral, BID, X 10 day(s), # 20 tab(s), Refills(s) 0,Pharmacy: [facility], 168, cm, 08/19/21 10:50:00 EDT, [...] suspension (2 sources)Corticosteroid, Quinolone AntimicrobialStart: 10-23-2023 End: 10-29-5382Zxeytxbt 0.3%-0.1% Susp-Otic 4 drop(s), Otic, BID for 7 day(s), 7.5 mL, Refill(s) 0, [id number], 168, cm, 10/23/23 16:55:00 EDT, Height/Length Dosing, 106.2, kg, 10/23/23 16:55:00 EDT, WeightDosing Start Date: 10/23/23 Stop Date: 10/30/23 Status: OrderedStart: 02-15-2023 End: 46-97-6872Xfjhuece 0.3%-0.1% Susp-Otic 4 drop(s), Otic, BID for 7 day(s), 7.5 mL, Refill(s) 0, Only use if drainage or pain of ear shake well before using, [facility], 168, cm, 02/15/23 9:49:00 EDT,Height/Length [...] (20 sources)Low Molecular Weight HeparinStart: 01-19-2025 End: 12-19-2559Yolowxrmjl Sodium (Lovenox) 40 MG/0.4ML solution prefilled syringe Indications: Anticoagulant long-term use , Antiphospholipid antibody positive , Antiphospholipid antibody syndrome ([facility]) Inject 40 mg as directed Daily for 30 doses 12 mL 3 01/19/2025 02/18/2025 ActiveStart: 01-09-2025 End: 22-42-7211jdcyja 0.4 mL by subcutaneous injection onceenoxaparin (LOVENOX) 40 mg/0.4 mL syringe Indications: Antiphospholipid syndrome Inject 0.4 mL (40 mg total) under the skin Every 12 (twelve) hours. 24 mL 6 01/13/2025 ActiveStart: 05-03-2023 End: 87-67-1869yatklqujol (LOVENOX) 40 mg/0.4 mL Indications: Primary hypercoagulable state (HCC) , CVA, old, speech/language deficit , Cerebral hyponatremia INJECT 1 SYRINGE SUBCUTANEOUSLY EVERY 24 HOURS 90 mL 10/29/2024 ActiveStart: 04-06-2022 End: 06-00-3545mjdxeqixei (LOVENOX) 40 mg/0.4 mL Indications: Primary hypercoagulable state (HCC) , CVA, old, speech/language deficit , Cerebral hyponatremia INJECT THE CONTENTS OF ONE SYRINGE (0.4 ML) SUBCUTANEOUSLY EVERY 24 HOURS 90 mL 2 09/28/2022 ActiveStart: 09-06-2021 End: 88-22-3138styaif 0.8 mL by subcutaneous injection twice dailyenoxaparin (LOVENOX) 80 mg/0.8 mL Indications: Primary hypercoagulable state (HCC) Inject 0.8 mL subcutaneously twice daily. 48 mL 5 09/06/2021 10/06/2021 ActiveStart: 04-07-2020 End: 88-87-3391ettcov 0.4 mL by subcutaneous injection every twenty-four hours enoxaparin (LOVENOX) 40 mg/0.4 mL Indications: Primary hypercoagulable state (HCC) , CVA, old, speech/language deficit , Cerebral hyponatremia Inject 0.4 mL subcutaneously every 24 hours. 36 mL 0 12/30/2021 03/30/2022 Active End: 67-52-3853asviny 40 mg by subcutaneous injection in the [...] enoxaparin (LOVENOX) 40 MG/0.4ML injection (1 source)Start: 95-21-3546sxjbphcvcp (LOVENOX) 40 MG/0.4ML injection Inject 0.4 mLs into the skin daily 16 mL 1 02/20/2020 Activeenoxaparin (Lovenox) 40 MG/0.4ML injection (20 sources)enoxaparin (Lovenox) 40 MG/0.4ML injection 1 (one) time each day at the same time Activefamotidine 40 mg oral tablet (20 sources)Histamine-2 Receptor AntagonistStart: 56-88-6887vdxb 1 tablet by mouth once daily at bedtimePepcid 40 mg Tab 40 mg = 1 tab(s), Oral, Once a day (at bedtime), # 90 tab(s), Refills(s) 4, Pharmacy: [facility], 168, cm, 06/30/24 8:36:00 EST, Height/Length Dosing, 97.2, kg, 06/30/24 8:36:00 EST, Weight Dosing Start Date: 06/30/24 Status: Ordered Quantity: 90.0 Unit: tab(s) Repeat number: 5Start: 11-29-2023 End: 62-90-9549vhzo 1 tablet by mouth once dailyfamotidine (PEPCID) 20 mg tablet Take 1 tablet by mouth once daily. To take prior to infusion 1 tablet 11/29/2023 10/28/2024 Discontinued (Discontinued by Patient)Start: 11-29-2023 End: 50-38-1021uivdyxpxti 20 mg injection (PEPCID)fluconazole 150 mg oral tablet (6 sources)Azole AntifungalStart: 86-28-5929Rgqxpcnv 150 mg Tab 150 mg = 1 tab(s), Oral, q7day, # 4 tab(s), Refills(s) 1, Pharmacy: [facility], 168, cm, 06/09/24 14:03:00 EST, Height/Length Dosing, 98.4, kg, 06/19/24 16:19:00 EST, Weight Dosing Start Date: 06/19/24 Status: Ordered Quantity: 4.0 Unit: tab(s) Repeat number: 2 Indication: Candidiasis, unspecifiedfluticasone propionate 0.05 mg/actuat metered dose nasal spray (20 sources)CorticosteroidStart: 11-20-2024 End: 03-55-9414gchi 1 spray(s) nasal route once dailyfluticasone (Flonase) 50 MCG/ACT nasal spray Indications: Sinus headache Administer 1 spray into each nostril Daily Shake gently. Before first use, prime pump. After use, clean tip and replace cap. 16 g 3 11/20/2024 11/20/2025 ActiveStart: 57-48-4999Rrfmcrz 0.05 mg/inh Holland 2 spray(s), Nasal, Daily, 16 gram, Refill(s) 11, each nostril, [id number], 168, cm, 06/09/24 14:03:00 EST, Height/Length Dosing, 99.1, kg, 06/09/24 14:03:00 EST, Weight Dosing Start Date: 06/09/24 Status: Ordered Quantity: 16.0 Unit: g Repeat number: 12Start: 40-31-0717Bumvirf 0.05 mg/inh Holland 2 spray(s), Nasal, Daily, 16 gram, Refill(s) 11, each nostril, [id number], 168, cm, 06/09/24 14:03:00 EST, Height/Length Dosing, 99.1, kg, 06/09/24 14:03:00 EST, Weight Dosing Start Date: 06/09/24 Status: OrderedStart: 66-40-0083Rvvdwuh 0.05 mg/inh Holland 2 spray(s), Nasal, Daily, 16 gram, Refill(s) 0, each nostril Start Date: 08/03/23 Status: Orderedisopropyl alcohol 0.7 ml/ml medicated pad (20 sources)Start: 81-99-1614Klssizh Swabs (Alcohol Prep Pad) 70 % pads Indications: Second trimester ([facility]) , 13 weeks gestation of ([facility]) , Multigravida of advanced maternal age in second trimester ([facility]) , Gestational diabetes mellitus (GDM), antepartum, gestational diabetes method of control unspecified ([facility]) , Elevated glucose tolerance test Apply 1 Pad topically Daily Use four times daily to check FSBS. 150 each 3 10/30/2024 Activelevothyroxine sodium 0.025 mg oral tablet (20 sources)l-ThyroxineStart: 26-21-8586kcwilqchdzhub 25 mcg (0.025 mg) Tab 25 mcg = 1 tab(s), Oral, Daily, Dr. Celaya, # 30 tab(s), Refills(s) 0 Start Date: 06/09/24 Status: Ordered Quantity: 30.0 Unit: tab(s) Repeat number: 1Start: 06-02-2024 End: 92-69-5578hwsz 1 tablet by mouth before mealtimelevothyroxine (Synthroid) 50 MCG tablet Indications: History of thyroid disease Take 1 tablet (50 mcg) by mouth in the morning. Take before meals. 30 tablet 11 06/02/2024 06/23/2024 DiscontinuedStart: 02-25-2024 End: 95-45-3095xcxl 1 tablet by mouth before mealtimelevothyroxine (Synthroid) 25 MCG tablet Indications: Abnormal TSH Take 1 tablet (25 mcg) by mouth in the morning. Take before meals. 30 tablet 11 06/23/2024 06/23/2025 ActiveStart: 08-24-2021 End: 24-95-1592dtkdjhrupfxbt (SYNTHROID) 25 mcg tablet Take 25 mcg by mouth. 0 08/24/2021 09/26/2023 Discontinued End: 36-94-3178shul 3 tablets by mouth once dailylevothyroxine (Synthroid) 25 MCG tablet Take 75 mcg by mouth 1 (one) time each day at the same time05/06/2024 DiscontinuedComment on above:Take 25 mcg by mouth.Lovenox 40 mg/0.4 mL Injection (20 sources)Start: 95-30-8559amrxfr 40 mg by subcutaneous injection every twenty-four hoursLovenox 40 mg/0.4 mL Injection 40 mg, SubCutaneous, q24hr, # 7 EA, Refills(s) 0, Blood Thinner Start Date: 04/07/20 Status: Ordered Quantity: 7.0 Unit: EA Repeat number: 1Start: 15-87-1587ndkkuk 40 mg by subcutaneous injection every twenty-four hoursLovenox 40 mg/0.4 mL Injection 40 mg, SubCutaneous, q24hr, # 7 EA, Refills(s) 0, Blood Thinner Start Date: 04/07/20 Status: Lckbmyk27 hr metFORMIN hydrochloride 500 mg extended release oral tablet (20 sources)BiguanideStart: 01-19-2025 End: 64-91-6441unlb 3 tablets by mouth every twenty-four hours at mealtime metFORMIN XR (Glucophage-XR) 500 MG 24 hr tablet Indications: Gestational diabetes mellitus (GDM), antepartum, gestational diabetes method of control unspecified ([facility]) Take 3 tablets (1,500 mg) by mouth in the evening. Take with meals Do not crush, chew, or split. 90 tablet 3 01/19/2025 ActiveStart: 97-24-1839rtjOELKXS XR (GLUCOPHAGE XR) 500 mg 24 hr tablet Take 1500 mg at night. 90 tablet 4 01/01/2025 ActiveStart: 12-17-2024 End: 36-17-9824lomSPRVNR XR (GLUCOPHAGE XR) 500 mg 24 hr tablet Take 1000 mg at night. 90 tablet 4 12/17/2024 01/01/2025 DiscontinuedStart: 05-13-2024 End: 66-43-3704yysu 2 tablets by mouth every twenty-four hours at mealtime metFORMIN XR (Glucophage-XR) 500 MG 24 hr tablet Indications: Insulin resistance Take 2 tablets (1,000 mg) by mouth in the evening. Take with meals Do not crush, chew, or split. 60 tablet 11 05/13/2024 06/02/2024 DiscontinuedStart: 11-27-2023 End: 66-49-1406cwlv 1 tablet by mouth once dailymetFORMIN XR (Glucophage-XR) 500 MG 24 hr tablet Indications: Insulin resistance Take 1 tablet (500mg) by mouth 1 (one) time each day at the same time 30 tablet 11 09/18/2024 01/19/2025 DiscontinuedStart: 68-49-6057LleUEGQBY (Eqv-Glucophage XR) 500 mg oral tablet, extended release 1,000 mg = 2 tab(s), Oral, Daily, Refills(s) 0 Start Date: 10/20/22 Status: Ordered Repeat number: 1Start: 03-26-2022 End: 93-04-6096wydJYYABX XR (GLUCOPHAGE XR) 500 mg 24 hr [...] tablet by mouth once daily.polyethylene glycol 3350 46017 mg powder for oral solution (20 sources)Osmotic Laxativepolyethylene glycol, PEG, 3350 (Glycolax) 17 GM/SCOOP powder Take 17 g by mouth Daily ActivePolyethylene Glycols (4 sources)polyethylene glycol 3350 (MIRALAX PO) Take by mouth. ActivePRENATAL 19 29 mg iron- 1 mg tablet,chewable (20 sources)Start: 14-48-6400NCZNKFGZ 19 29 mg iron- 1 mg tablet,chewable Chew 1 tablet and swallow in the morning. 6 10/31/2018ActiveStart: 34-04-2435ABAJLEIO 19 29 mg iron- 1 mg tablet,chewable Chew 1 tablet and swallow daily. 6 10/31/2018 ActivePrenatal Vit-Fe Fumarate-FA ( PO) (1 source)Start: 64-78-7741Nvcvrxhm Vit-Fe Fumarate-FA ( PO) Take 1 tablet by mouth 0 10/31/2018 Activeprogesterone 200 mg oral capsule (20 sources)Progesteronetake 1 capsule by mouth in the morningprogesterone (PROMETRIUM) 200 mg capsule Take 1 capsule (200 mg total) by mouth in the morning. ActiveProgesterone 200 MG suppository (6 sources)Start: 09-18-2024 End: 21-21-4195Duvugrsltvgl 200 MG suppository Indications: History of miscarriage Insert 200 mg into the vagina at bedtime Insert suppository vaginally every night at bedtime until 12 weeks gestation 30 suppository 3 09/18/2024 10/30/2024 Discontinued (Therapy completed)Start: 09-18-2024 End: 62-63-9138Ghckqxcxnpga 200 MG suppository Indications: History of miscarriage Insert 200 mg into the vagina at bedtime Insert suppository vaginally every night at bedtime until 12 weeks gestation 30 suppository 3 09/18/2024 12/17/2024 ActiveStart: 09-01-2024 End: 75-13-0157Ukrincpwwell 200 MG suppository Indications: History of miscarriage Insert 200 mg into the vagina at bedtime Insert suppository vaginally every night at bedtime until 12 weeks gestation 30 suppository 2 09/01/2024 11/30/2024 Activeprogesterone vaginal suppository 200 mg (CPD) (4 sources)progesterone vaginal suppository 200 mg (CPD) Use 200 mg vaginally. Unwrap and insert as directed. Activeterconazole 4 mg/ml vaginal cream (3 sources)Azole AntifungalStart: 06-23-2024 End: 59-34-6832kroaodnmvpd (Terazol 7) 0.4 % vaginal cream Indications: Vaginal discharge Insert 1 applicator intothe vagina at bedtime for 7 days 45 g 06/23/2024 06/30/2024 ActiveVentolin HFA 90 mcg/inh Aerosol-Adpt (1 source)Start: 09-07-2024 End: 98-47-5075tipn 2 puff(s) by inhalation every six hours for wheezingVentolin HFA 90 mcg/inh Aerosol-Adpt 2 puff(s), Inhalation, q6hr for wheezing for 7 day(s), 8 gm, Refill(s) 0, [facility] [facility], 167, cm, 09/07/24 10:01:00 EDT, Height/Length Dosing, 96.4, kg, 09/07/24 10:01:00 EDT, Weight Dosing Start Date: 09/07/24 Stop Date: 09/14/24 Status: Ordered Quantity:8.0 Unit: g Repeat number: 1 Indication: Acute upper respiratory infection, unspecifiedVitamin D (20 sources)Start: 76-75-3611Ryskqli D 2,000 International_Unit, Oral, qWeek, Refills(s) 0 Start Date: 08/03/23 Status: Ordered Repeat number: 1Start: 19-79-3869Aezhiky D 2,000 International_Unit, Oral, qWeek, Refills(s) 0 Start Date: 08/03/23 Status: Ordered Completed/Discontinued Medications MedicationDrug Class(es)DatesSig (Normalized)Sig (Original)aspirin 81 mg chewable tablet (5 sources)Platelet Aggregation Inhibitor, Nonsteroidal Anti-inflammatory Drug End: 21-41-2149igowdtf 81 MG chewable tablet Chew 81 mg in the morning. 05/06/2024 Discontinued1 ml dexamethasone phosphate 4 mg/ml injection (1 source)CorticosteroidStart: 11-29-2023 End: 34-50-7452ylxKYGZKcpmar sodium phosphate 8 mg injection (DECADRON)3 ml insulin glargine 100 unt/ml pen injector (6 sources)Insulin AnalogStart: 12-03-2024 End: 25-57-7660hhsmwcu glargine (LANTUS SOLOSTAR U-100 INSULIN) 100 unit/mL (3 mL) insulin pen Prime with 2 units then inject 4 units SQ into abd 15 mL 3 12/03/2024 12/17/2024 Discontinued (Allergic response)insulin isophane, human 100 unt/ml injectable suspension (10 sources)Start: 12-26-2024 End: 78-11-0905lfze 8 [IU] by mouth once dailyinsulin NPH (HumuLIN N,NovoLIN N) 100 unit/mL injection Indications: Gestational diabetes mellitus (GDM) in second trimester controlled on oral hypoglycemic drug Inj sbq in abd 8 units nightly 10 mL 6 12/26/2024 02/06/2025 Discontinued (Patient Never Started This Medication)iron sucrose 300 mg in NaCl 0.9% 250 mL (VENOFER) (3 sources)Start: 11-29-2023 End: 36-20-8630rcmw sucrose 300 mg in NaCl 0.9% 250 mL (VENOFER)Start: 11-22-2023 End: 14-17-5872jnmj sucrose 300 mg in NaCl 0.9% 250 mL (VENOFER)Start: 11-15-2023 End: 25-89-4594utcr sucrose 300 mg in NaCl 0.9% 250 mL (VENOFER)multivitamin (MULTIPLE VITAMINS) tablet (7 sources)take 1 tablet by mouth once dailymultivitamin (MULTIPLE VITAMINS) tablet Take 1 tablet by mouth once daily. 0 ActiveComment on above:Take 1 tablet by mouth once daily.ondansetron 4 mg disintegrating oral tablet (4 sources)Serotonin-3 Receptor AntagonistStart: 04-14-2024 End: 40-55-2894viwz 1 tablet by mouth every six hours for nauseaondansetron ODT (Zofran-ODT) 4 MG disintegrating tablet Indications: Nausea and vomiting in Take 1 tablet (4 mg) by mouth every 6 (six) hours if needed for nausea or vomiting 30 tablet 2 04/14/2024 05/06/2024 DiscontinuedStart: 03-07-2024 End: 74-46-9827rryn 1 tablet by mouth every six hours as needed for nausea and vomiting and nausea and nauseaondansetron ODT (Zofran-ODT) 4 MG disintegrating tablet Indications: Nausea Take 1 tablet (4 mg) bymouth every 6 (six) hours if needed for nausea or vomiting 30 tablet 2 03/07/2024 04/06/2024 Active polysaccharide iron complex 391 mg oral capsule (20 sources)Start: 03-06-2022 End: 08-92-2166HSC FE 180 mg iron cap Problems Active Problems Problem ClassificationProblemDateDocumented DateEpisodic/ChronicAcute cerebrovascular disease (20 sources)Cerebral infarction; Translations: [Cerebral infarction, unspecified]Onset: 05-16-2019 Resolved: 400637-00-7529LsxybivXfzymom disorders (20 sources)Anxiety; Translations: [Anxiety disorder, unspecified]Onset: 178542-90-2325GxnzitrYxwbzxo dysrhythmias (20 sources)Supraventricular tachycardia; Translations: [Supraventricular tachycardia]Onset: 517751-78-4774EljbyeaHlrjilxwbdd and hemorrhagic disorders (20 sources)Antiphospholipid syndrome; Translations: [Hypercoagulability state] Onset: 564785-77-1184EgqggaiXygppstqnf and other anemia (20 sources)Iron 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; Translations: [Iron deficiency anemia secondary to blood loss (chronic)]Onset: 85-35-6600Hosrsbl Deficiency and other anemia (1 source)Iron deficiency anemia secondary to blood loss (chronic); Translations: [Iron deficiency anemia secondary to blood loss (chronic)]Onset: 96-74-3612VttpzmgYwhxukklr of teeth and jaw (11 sources)Temporomandibular uveej-hokb-psefzqcwavw syndrome; Translations: [Arthralgia of temporomandibular joint]Onset: 856406-27-6019Jxrtugmm Esophageal disorders (20 sources)Laryngopharyngeal reflux; Translations: [Gastro-esophageal reflux disease without esophagitis]Onset: 243528-83-9270RqglrzlPeugrdxm; including migraine (20 sources)Migraine without aura, not refractory ; Translations: [Migraine without aura, not intractable, without status migrainosus]Onset: 09-12-2017 Resolved: 214282-97-8122JxtanqjKowhisxx; including migraine (2 sources)Sinus headache; Translations: [Sinus headache]16-72-7381GplcvzsyDtjh effects of cerebrovascular disease (20 sources)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; Translations: [Other speechand language deficits following cerebral infarction]Onset: 58-75-2469WutlrndSoovznenhn disorders (1 source)Hormone replacement therapy; Translations: [HORMONE REPLACEMENT THERAPY]Onset: 80-21-1611WelmprvsFwjzsylpk disorders (20 sources)Irregular menstruation, unspecified; Translations: [Missed period] Onset: 90-36-9143XhdqhajPlhhlgraeqbph mental health disorders (20 sources)Psychogenic hyperventilation; Translations: [Other somatoform disorders]Onset: 084699-15-4608ApsxmvoJttarwhx sclerosis (1 source)Multiple sclerosis; Translations: [Multiple sclerosis]Onset: 26-54-4959NdnydbwTiifaaodydl deficiencies (20 sources)Vitamin D deficiency; Translations: [Vitamin D deficiency, unspecified]Onset: 339497-99-2578AgnjzmoLwcnj aftercare (1 source)Other meterman (current) drug therapy; Translations: [OTH GROUP HOME CURRENT DRUG THERAPY]Onset: 68-39-5894YljusmecFjvnq aftercare (1 source)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; Translations: [GROUP HOME USE ORAL HYPOGLYCEMIC DX]Onset: 84-00-4374OyhoobvkUbgic aftercare (2 sources)H/O: miscarriage; Translations: [Encounter for other specified aftercare]59-92-6237IiftcprcLdrwo circulatory disease (4 sources)History of cerebrovascular disease; Translations: [Personal history of transient ischemic attack (TIA), and cerebral infarction without residual deficits]Onset: 104770-91-9613JcaohbjnQkcdh circulatory disease (3 sources)Personal history of transient ischemic attack (TIA), and cerebral infarction without residual deficits; Translations: [PERS HX TIA AND CI NO RESID DEFICIT]Onset: 70-77-3516YwctdysjBffey circulatory disease (1 source)History of transient ischemic attack; Translations: [Personal history of transient ischemic attack (TIA), and cerebral infarction without residual deficits]64-52-7291HhrktieaHcjjr complications of ; puerperium affecting management of mother (20 sources)Anemia in mother complicating childbirth; Translations: [Anemia complicating childbirth]Onset: 091173-67-4953TtzdpztDkpzk complications of ; puerperium affecting management of mother (1 source)Other diseases of the blood and blood-forming organs and certain disorders involving the immune mechanism complicating childbirth; Translations: [OTH DZ BLD BFO IMMUN COMP CHILDBRTH]Onset: 76-02-4962PdtazigeUypre complications of ; puerperium affecting management of mother (1 source)Endocrine, nutritional and metabolic diseases complicating childbirth; Translations: [ENDOCRN NUTR MET DZ COMP CHILDBIRTH]Onset: 41-30-2995Vwnykaeg Other complications of ; puerperium affecting management of mother (1 source)Streptococcus B carrier state complicating childbirth; Translations: [STREP B QUIROZ STATE COMP CHILDBIRTH]Onset: 11-97-6031NxzrhkcpXhdbn complications of (20 sources)Iron deficiency anemia of ; Translations: [Anemia complicating , unspecified trimester]Onset: 63-17-7137HkceagxFfpkf complications of (1 source)Endocrine, nutritional and metabolic diseases complicating , third trimester; Translations: [ENDOCRN NUTR MET DZ COMP PG 3RD TRI]Onset: 27-47-6683XeycabdvMqeji complications of (5 sources)Supervision of elderly multigravida, third trimester; Translations: [SUP ELDER MULTIGRAVIDA THIRD TRI]Onset: 67-72-7649DdnpmxbcAoauw complications of (1 source)Other diseases of the blood and blood-forming organs and certain disorders involving the immune mechanism complicating , third trimester; Translations: [OTH DZ BLD BFO IMMN COMP PG 3RD TRI]Onset: 05-04-2022 EpisodicOther complications of (1 source)Maternal care for excessive growth, third trimester, not applicable or unspecified; Translations: [MAT CARE EXCSS FTL GRTH 3RD TRI UNS] Onset: 29-13-9291AdatyracLxzcr complications of (20 sources)Antiphospholipid syndrome; Translations: [Other diseases of the blood and blood-forming organs and certain disorders involving the immune mechanism complicating , unspecified trimester]Onset: 07-07-2019 94-66-0273UkwhmsphNpdeb complications of (20 sources)Multigravida of advanced maternal age; Translations: [Supervision of elderly multigravida, second trimester]Onset: 969364-90-2397QibaulxgAdobq complications of (20 sources)History of with abortive outcome; Translations: [Supervision of with other poorreproductive or obstetric history, second trimester]Onset: 736488-68-4091KvgbneazOkkqk complications of (3 sources)Hypothyroidism in ; Translations: [Endocrine, nutritional and metabolic diseases complicating , second trimester]01-02-2025 EpisodicOther ear and sense organ disorders (20 sources)Otitis externa of right ear; Translations: [Unspecified otitis externa, right ear]Onset: 67-03-8814IlokmnyEqrwo ear and sense organ disorders (7 sources)Otitis ihapsye65-30-0320KzreaobZskya endocrine disorders (20 sources)Hypoglycemia; Translations: [Hypoglycemia, unspecified]Onset: 664581-43-8248MipuarpFdyiv female genital disorders (2 sources)Vaginal bleeding; Translations: [Abnormal uterine and vaginal bleeding, unspecified]37-48-3724VjywhpiVtwkl female genital disorders (4 sources)Vaginal discharge; Translations: [Other specified noninflammatory disorders of vagina]25-04-0329YbhqddnkVpzqb hematologic conditions (1 source)H/O: blood disorder; Translations: [Personal history of diseases of the blood and blood-forming organs and certain disorders involving the immune mechanism]Onset: 31-29-9548WoehzwjjIetkv lower respiratory disease (9 sources)Hqglh22-17-0027AdvniqucLhzyh nervous system disorders (1 source)Idiopathic progressive neuropathy; Translations: [Idiopathic progressive neuropathy]Onset: 42-31-4512KqqupfhFrxqf nervous system disorders (20 sources)Neuropathy; Translations: [Idiopathic progressive neuropathy]Onset: 494469-83-5269TfpeytcRfzzv nervous system disorders (3 sources)Paresthesia; Translations: [Paresthesia of skin]Onset: 05-16-2019 EpisodicOther nervous system disorders (9 sources)Muscle phbmla18-44-5225KjkloaufWsvio nervous system disorders (6 sources)Facial xudgbsuhhiu24-82-0796IknrrwbaImrgo nutritional; endocrine; and metabolic disorders (10 sources)Obese class II; Translations: [Body mass index (BMI) 36.0-36.9, adult]Onset: 15-32-5827AkupqybIgcqe nutritional; endocrine; and metabolic disorders (20 sources)Obesity; Translations: [Other obesity]Onset: 598739-16-4019 ChronicOther nutritional; endocrine; and metabolic disorders (20 sources)Morbid obesity; Translations: [Morbid (severe) obesity due to excess calories]Onset: 68-73-2101UwpsdcwSodlh nutritional; endocrine; and metabolic disorders (3 sources)Hypercalcemia; Translations: [Hypercalcemia]25-01-3662XxglfmlVbdfg nutritional; endocrine; and metabolic disorders (20 sources)Body mass index 30+ - obesity; Translations: [Body mass index (BMI) 37.0-37.9, adult]Onset: 495333-66-1210GecgqtcNwwaa nutritional; endocrine; and metabolic disorders (1 source)Obese class I; Translations: [Body mass index (BMI) 34.0-34.9, adult] Onset: 23-02-1953TmbjkfuYrmka nutritional; endocrine; and metabolic disorders (1 source)H/O: Disorder; Translations: [Personal history of other endocrine, nutritional and metabolic disease]Onset: 38-97-4338VmrjowveEgzvw nutritional; endocrine; and metabolic disorders (2 sources)H/O: thyroid disorder; Translations: [Personal history of other endocrine, nutritional and metabolic disease]78-09-8600PuzjpcmhLprhz screening for suspected conditions (not mental disorders or infectious disease) (12 sources)Encounter for screening for malignant neoplasm of cervix; Translations: [Encounter for screening for diabetes mellitus]Onset: 10-28-2021 EpisodicOther skin disorders (1 source)Podopompholyx; Translations: [Dyshidrosis [pompholyx]]Onset: 12-16-7854QlvtvwnhQtomi upper respiratory disease (20 sources)Allergy to -48-0442GgpuztuYryko upper respiratory disease (1 source)Polyp of nasal sinus; Translations: [Nasal polyp, unspecified]Onset: 11-41-7038VcslrdiqBkkma upper respiratory infections (8 sources)Chronic sinusitis; Translations: [Chronic sinusitis, unspecified] Onset: 77-46-5871LqwthgmHipevdzg codes; unclassified (1 source)Sleep disorder; Translations: [Other sleep disorders]Onset: 10-20-2022 ChronicResidual codes; unclassified (20 sources)Obstructive sleep apnea syndrome; Translations: [Obstructive sleep apnea (adult) (pediatric)]Onset: 492806-63-3058KohquwvDhccxozs codes; unclassified (8 sources)Patient encounter status; Translations: [Other specified health status]Onset: 87-77-3808BjhopljoDbdwelum codes; unclassified (1 source)39 weeks gestation of ; Translations: [39 WEEKS GESTATION OF ]Onset: 65-86-4259QdkjjnniQxkmraqa codes; unclassified (1 source)Family history of diabetes mellitus; Translations: [FAMILY HISTORY OF DIABETES MELLITUS]Onset: 21-77-1565FdpituexTiqclnbu codes; unclassified (1 source)Family history of stroke; Translations: [FAMILY HISTORY OF STROKE] Onset: 66-71-3783AzfswsanRuhxqlwy codes; unclassified (1 source)38 weeks gestation of ; Translations: [38 WEEKS GESTATION OF ]Onset: 67-83-0833UkdohqfyHpwyrhzd codes; unclassified (1 source)37 weeks gestation of ; Translations: [37 WEEKS GESTATION OF ]Onset: 27-82-3819HmqxsbbvNnzhrykk codes; unclassified (1 source)35 weeks gestation of ; Translations: [35 WEEKS GESTATION OF ]Onset: 49-98-9804DyddgeljLqpfnfnx codes; unclassified (1 source)34 weeks gestation of ; Translations: [34 WEEKS GESTATION OF ]Onset: 71-87-2966QtotzplkBqnbclil codes; unclassified (1 source)33 weeks gestation of ; Translations: [33 WEEKS GESTATION OF ]Onset: 38-34-9349QbslryixUroulxai codes; unclassified (1 source)32 weeks gestation of ; Translations: [32 WEEKS GESTATION OF ]Onset: 11-98-0035ZadupizoDqzvoqxo codes; unclassified (1 source)31 weeks gestation of ; Translations: [31 WEEKS GESTATION OF ]Onset: 90-13-0260ZycgddqgVqegdtcv codes; unclassified (20 sources)Sleep dobmugth67-03-8432ZqxjfhjdMkgvlthz codes; unclassified (1 source)Localized edema; Translations: [Localized edema]Onset: 11-09-2023 EpisodicResidual codes; unclassified (2 sources)Gestation period, 14 weeks; Translations: [14 weeks gestation of ]90-05-4302MasqzkwhDtjfnouk codes; unclassified (2 sources)Gestation period, 13 weeks; Translations: [13 weeks gestation of ]36-12-9873CvwlwqrcOapowzsh codes; unclassified (2 sources)Gestation period, 16 weeks; Translations: [16 weeks gestation of ]01-78-8239RjicooklNilpgazl codes; unclassified (2 sources)Gestation period, 19 weeks; Translations: [19 weeks gestation of ]31-78-1896AaybkmdjQrlusrmo codes; unclassified (3 sources)Gestation period, 22 weeks; Translations: [22 weeks gestation of ]14-08-3398RjtjupyfCletqegx codes; unclassified (3 sources)Family history of autism; Translations: [Family history of other mental and behavioral disorders]07-10-3619TwqtijkjCqsrfpdw codes; unclassified (2 sources)Gestation period, 23 weeks; Translations: [23 weeks gestation of ]30-48-9844SzouwwmkIimddzhi codes; unclassified (2 sources)Gestation period, 25 weeks; Translations: [25 weeks gestation of ]17-59-0632KfcuuxajAxflrcwd codes; unclassified (1 source)Gestation period, 27 weeks; Translations: [27 weeks gestation of ]51-42-2379OwcnymhjNqkoylvh codes; unclassified (1 source)22 weeks gestation of ; Translations: [22 weeks gestation of ]Onset: 35-88-8062ZudktpuyIlaukumh codes; unclassified (2 sources)Gestation period, 28 weeks; Translations: [28 weeks gestation of ]09-64-7111GhqsrzotXtkitfiy codes; unclassified (1 source)Gestation period, 29 weeks; Translations: [29 weeks gestation of ]57-28-1564NhrxcqxkKzcszjqu codes; unclassified (2 sources)Gestation period, 30 weeks; Translations: [30 weeks gestation of ]94-21-5195EbsqdofzWimucno disorders (20 sources)Hypothyroidism; Translations: [Hypothyroidism, unspecified]Onset: 419533-78-7297PefqgqlCearipc disorders (20 sources)Disorder of thyroid, unspecified; Translations: [Disorder of thyroid gland]Onset: 809419-03-9389DommmumaWfpnsipvt cerebral ischemia (1 source)Transient cerebral ischemia; Translations: [Transient cerebral ischemic attack, unspecified]Onset: 229123-14-1887KqwfhybGjoaqjcxrbuw (20 sources)History of APAQ-EaQ-922-11-2022Unclassified (20 sources)Inhalation fidgas76-22-9148Cdccmbqpasgv (20 sources)Hjg-ywjcah60-85aryjdi84-09-9828Xjaiqrwqfxvf (1 source)CONTACT W/AND (SUSP) EXPOS COVID-19; Translations: [CONTACT W/AND (SUSP) EXPOS COVID-19]Onset: 36-76-8044Nfgwedmdizso (15 sources)Patient encounter -44-3887Rteoazkxttxi (1 source)[facility] consultOnset: 38-47-9227Eqdsazppsmxz (1 source)Gestational DiabetesOnset: 55-76-7410Wuoqi infection (20 sources)Viral ieodrtm92-70-7316Ezbkvqdq Past or Other Problems Problem ClassificationProblemDateDocumented DateEpisodic/ChronicAbdominal pain (20 sources)Abdominal pain; Translations: [Pain in pelvis]Onset: 02-01-2019 85-22-4688SkhiyqmoYhfim bronchitis (20 sources)Acute infective bronchitis; Translations: [Acute bronchitis due to other specified organisms]Onset: 474559-93-3538DfmikozeNfdkn posthemorrhagic anemia (20 sources)Acute posthemorrhagic anemia; Translations: [Acute posthemorrhagic anemia]Onset: 117015-28-2114DjsbitozMmbebmyz reactions (20 sources)Other allergy status, other than to drugs and biological substances; Translations: [Bhnec-qh-hqtyulq vesicular eczema of hands and feet]Onset: 72-11-0270EgonehrhFawfgvbow infection; unspecified site (20 sources)Bacterial infectious disease; Translations: [Other bacterial infections of unspecified site]Onset: 362211-26-7357IihqgfauEifmnuzz of urinary tract (20 sources)History of calculus of kidney; Translations: [Personal history of urinary calculi]Onset: 201210-22-0000TgvjmoswLyjoywd dysrhythmias (20 sources)Palpitations; Translations: [Palpitations]Onset: 08-26-2019 84-93-1517WettmxliFlxdtnmmqt associated with dizziness or vertigo (20 sources)Dizziness; Translations: [Dizziness and giddiness]Onset: 02-05-2019 08-67-1911LxvbwiloMhxhbnmslo and other anemia (20 sources)Anemia; Translations: [Anemia, unspecified]Onset: 23-68-5688Yaciujnz Diabetes mellitus without complication (20 sources)Prediabetes; Translations: [Prediabetes]Onset: 16-08-7306Rzysmtbn Diabetes or abnormal glucose tolerance complicating ; childbirth; or the puerperium (20 sources)Gestational diabetes mellitus in , unspecified control; Translations: [Gestational diabetes mellitus in childbirth, unspecified control] Onset: 58-52-2997EqvzynkaKffuauem of mouth; excluding dental (20 sources)Xerostomia; Translations: [Dry mouth, unspecified]Onset: 12-22-2022 EpisodicFluid and electrolyte disorders (20 sources)Cerebral hyponatremia; Translations: [Hypo-osmolality and hyponatremia]Onset: 24-59-2516OhinzvudRqoearkutzjjsize hemorrhage (20 sources)Hematochezia; Translations: [Blood-tinged feces]Onset: 06-12-2023 50-79-7478XjlyugzrSdkeozugummfi symptoms and ill-defined conditions (20 sources)Genitourinary symptoms; Translations: [Unspecified symptoms and signs involving the genitourinary system]Onset: 80-92-5257XzwyxecsWnateswuasvqs and screening for infectious disease (20 sources)Antibody studies abnormal; Translations: [Raised antibody titer] Onset: 677064-23-1171VniafxlaEyvkmkc and fatigue (20 sources)Fatigue; Translations: [Other fatigue]Onset: EpisodicMycoses (20 sources)Candidiasis of vagina Resolved: 134151-18-8275MvsnpirfVsoqpkxptej deficiencies (20 sources)Vitamin B deficiency; Translations: [Deficiency of other specified B group vitamins]Onset: 478498-17-7783NjcxssdyLB-dvmfivk trauma to perineum and vulva (20 sources)First degree perineal tear during delivery - delivered; Translations: [First degree perineal laceration during delivery]Onset: 661755-45-0888UishuuxuUnvrc aftercare (20 sources)Long-term current use of anticoagulant; Translations: [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]Onset: 506243-50-0331XtiryunkUdmel aftercare (20 sources)Long-term current use of drug therapy; Translations: [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]Onset: EpisodicOther circulatory disease (20 sources)History of cerebrovascular accident; Translations: [Personal history of transient ischemic attack (TIA), and cerebral infarction without residual deficits]Onset: 521766-52-8178NcezhetxYkqoqmj on above:reported by pt - related to antiphospholipid syndromeOther circulatory disease (20 sources)Elevated blood-pressure reading without diagnosis of hypertension; Translations: [Elevated blood-pressure reading, without diagnosis of hypertension]Onset: 127011-36-0244SjzniplnXlgkn circulatory disease (20 sources)Elevated blood pressure; Translations: [Elevated blood-pressure reading, without diagnosis of hypertension]Onset: 844618-20-9833Lmvjjdyx Other complications of ; puerperium affecting management of mother (20 sources) problem; Translations: [Unspecified disorders of ]Onset: 050547-77-4153WtgvasteGtbra complications of ; puerperium affecting management of mother (1 source)Endocrine, nutritional and metabolic disease complicating , childbirth and puerperium; Translations: [Endocrine, nutritional and metabolic diseases complicating childbirth]Onset: 922151-09-6010VtylmhzlWyysl complications of ; puerperium affecting management of mother (1 source)Complication of , childbirth and/or the puerperium; Translations: [Other diseases of the blood and blood-forming organs and certain disorders involving the immune mechanism complicating childbirth]Onset: 802301-75-8528YflnkdamJrujx complications of ; puerperium affecting management of mother (20 sources) hemorrhage; Translations: [Other immediate hemorrhage]Onset: 033149-54-6685KswevefrVzifl complications of (1 source)Vomiting of ; Translations: [Vomiting of , unspecified]Onset: 157512-18-3426YrfhcrxzGmdkr complications of (20 sources)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; Translations: [Maternal care for (suspected) chromosomal abnormality in fetus, not applicable or unspecified]Onset: 438868-29-5816OtkixhnrXidkd complications of (4 sources)Other specified related conditions, third trimester; Translations: [OTH SPEC PREG RELATEDCOND 3RD TRI]Onset: 50-17-5539FjkglmwoCcsuq complications of (2 sources)Other diseases of the blood and blood-forming organs and certain disorders involving the immune mechanism complicating , unspecified trimester; Translations: [Other diseases of the blood andblood-forming organs and certain disorders involving the immune mechanism complicating , un specified trimester]Onset: 46-94-6958WlxnohoxGjizg complications of (1 source)Supervision of elderly multigravida, second trimester; Translations: [Supervision of elderly multigravida, second trimester]Onset: 17-42-1339Trzcsjpf Other ear and sense organ disorders (20 sources)Referred otalgia of right ear; Translations: [Otalgia, right ear] Onset: 710287-69-9410CitsnqnhMvylc female genital disorders (20 sources)Noninflammatory disorder of the vagina; Translations: [Other specified noninflammatory disorders ofvagina]Onset: 216136-01-1534Vfjjlyjv Other female genital disorders (20 sources)Disorder of female reproductive system; Translations: [Unspecified condition associated with femalegenital organs and menstrual cycle]Onset: 242579-22-8658OsfpcdveYkkeq female genital disorders (1 source)Other specified noninflammatory disorders of vagina; Translations: [OTH SPEC NONINFLAMMATORY D/O VAGINA]Onset: 19-60-2314RxonjwafFkwai female genital disorders (11 sources)Pelvic and perineal pain; Translations: [Pelvic and perineal pain] Onset: 102659-94-9907BjllkscwDrfgk hematologic conditions (20 sources)H/O: anemia - iron deficient; Translations: [Personal history of diseases of the blood and blood-forming organs and certain disorders involving the immune mechanism]Onset: 152199-78-7291WbzgicgtNjmyt infections; including parasitic (20 sources)Personal history of other infectious and parasitic diseases; Translations: [History of COVID-19]Onset: 588776-78-2663IipfvaeyXggfi inflammatory condition of skin (1 source)Itching of skin; Translations: [Pruritus, unspecified]Onset: 933914-65-3752PdhexlvuRmidw inflammatory condition of skin (20 sources)Pruritus, unspecified; Translations: [Unspecified pruritic disorder] Onset: 167339-30-6669TlcjalepMvhnm injuries and conditions due to external causes (20 sources)Inhalation injury; Translations: [Injury, unspecified, initial encounter]Onset: 678569-01-6083HhghfbvoFfjol lower respiratory disease (20 sources)Dyspnea; Translations: [Dyspnea, unspecified]Onset: 06-12-2023 73-35-7509FvuaqqrmLuwjc lower respiratory disease (20 sources)H/O: asthma; Translations: [Personal history of other diseases of the respiratory system]Onset: 249864-11-7447JiizrzoaFcpnr lower respiratory disease (20 sources)Snoring; Translations: [Snoring]Onset: 15-60-5887IsesadzlKmely nervous system disorders (20 sources)Muscle fasciculation; Translations: [Fasciculation]Onset: 08-19-2021 EpisodicOther nervous system disorders (20 sources)Paresthesia of lower extremity; Translations: [Paresthesia of skin] Onset: 879201-38-7360QewjhbavCvlpi nervous system disorders (20 sources)Acute postoperative pain; Translations: [Other acute postprocedural pain]Onset: 736750-39-1538TzinckitRhska non-traumatic joint disorders (20 sources)Joint pain; Translations: [Pain in unspecified joint]Onset: 646689-46-8407UfilehyvWjqco nutritional; endocrine; and metabolic disorders (20 sources)H/O: hypothyroidism; Translations: [Personal history of other endocrine, nutritional and metabolic disease]Onset: 708431-61-6226Udschqyi Other and delivery including normal (20 sources)Normal ; Translations: [Encounter for supervision of normal , unspecified, first trimester]Onset: 573022-39-2679Uesvkqsp Other skin disorders (20 sources)Jxabt-cx-vbctpyu vesicular eczema of hands and feet; Translations: [Dyshidrosis [pompholyx]]Onset: 733117-54-6385VbieucmqUeiry upper respiratory disease (20 sources)Deviated nasal septum; Translations: [Deviated nasal septum]Onset: 27-83-5049OjcntoymFauxp upper respiratory disease (20 sources)Polyp of nasal cavity and/or nasal sinus; Translations: [Nasal polyp, unspecified]Onset: 130717-34-2612OpizluquUlmpo upper respiratory infections (20 sources)Acute upper respiratory infection Resolved: 643119-53-7030VkdokosxEfqrwu media and related conditions (20 sources)Dysfunction of eustachian tube; Translations: [Disorder of right Eustachian tube]Onset: 101132-24-8422QlzrhhqnAujexzb cyst (20 sources)Cyst of ovary; Translations: [Cyst of right ovary]Onset: 02-06-2019 88-45-4655EzuultimRkyldhze codes; unclassified (20 sources)Family history of female genital tract disorder Resolved: 530223-85-5010LhktzkceIrgtonat codes; unclassified (20 sources)FH: Anemia Resolved: 632452-74-1974ApqcfdjtSqopjljt codes; unclassified (20 sources)First trimester ; Translations: [Less than 8 weeks gestation of ]Onset: 856235-21-9780FisxvlonOpxacmyx codes; unclassified (20 sources)Gestation period, 32 weeks; Translations: [32 weeks gestation of ]Onset: 145049-74-8543IuocutzzWleqlftv codes; unclassified (1 source)Gestation period, 33 weeks; Translations: [33 weeks gestation of ]Onset: 639745-30-4958ZmzulwmwKddtvrll codes; unclassified (1 source)Gestation period, 34 weeks; Translations: [34 weeks gestation of ]Onset: 046515-23-9803YremoznsQccyvoqs codes; unclassified (1 source)Gestation period, 35 weeks; Translations: [35 weeks gestation of ]Onset: 049140-75-0312DjtcelhoNrpemxss codes; unclassified (1 source)Gestation period, 36 weeks; Translations: [36 weeks gestation of ]Onset: 046542-79-8276HghoahuwSxuvmega codes; unclassified (1 source)Gestation period, 37 weeks; Translations: [37 weeks gestation of ]Onset: 613417-43-0549ScfuoobnQwlwllhz codes; unclassified (1 source)Gestation period, 38 weeks; Translations: [38 weeks gestation of ]Onset: 856136-36-3244MiegsedmZgljfjqm codes; unclassified (1 source)Gestation period, 39 weeks; Translations: [39 weeks gestation of ]Onset: 987731-19-4248VpwqlybrInfoaxyi codes; unclassified (20 sources)Other general symptoms and signs; Translations: [Other general symptoms]Onset: 436394-55-7926CvpsjskeNrcjxvdk codes; unclassified (1 source)Unspecified blood type, Rh negative; Translations: [UNSPECIFIED BLOOD TYPE RH NEGATIVE]Onset: 58-09-3637KdirgomkTfvxzbeb codes; unclassified (1 source)28 weeks gestation of ; Translations: [28 WEEKS GESTATION OF ]Onset: 18-03-2978BopfhsmgTsetauuv codes; unclassified (20 sources)Intolerant of cold; Translations: [Other general symptoms and signs] Onset: 988937-22-7440NdoighzdKixikqvn codes; unclassified (20 sources)Non-smoker; Translations: [Other specified health status]Onset: 670807-52-9738YfvovxvpPuwuwshv codes; unclassified (20 sources)Swelling of salivary gland; Translations: [Localized edema]Onset: 086694-60-4087EuroskbqXemnqoaimpw; intervertebral disc disorders; other back problems (20 sources)Neck pain; Translations: [Cervicalgia]Onset: EpisodicSpontaneous (20 sources)Miscarriage Resolved: 628491-25-1070FtsuspxtNoannwp (20 sources)Syncope and collapse; Translations: [Syncope and collapse]Onset: 588826-40-4432LyidpseqCzzbichfdpdk (20 sources)PregnancyOnset: 02-20-2007 Resolved: 502924-08-5678Fbeeikbfirlk (20 sources)Suspected disease caused by 1878-aJxP76-97lGsI92-70-3524Yithusesglwo (1 source)Exposure to 2019 novel coronavirus; Translations: [Contact with and (suspected) exposure to COVID19]Urinary tract infections (20 sources)Infective urethritis; Translations: [Other urethritis]Onset: 01-90-7527Ogtfvdvz Results Test NameValueInterpretationReference HguhdUuiyzofo29([place])D[address] [facility] 28-93-368904400770-oodlkwjliofcrx D3 [Mass/Vol]54.6 ng/cHZbuqzn04.0-80.0[facility] on above:Order Comment: Specimen Type: BLOOD SPECIMENOrdering Facility: [facility] Address:[address] [place], [place] [address]Performed By: #### 1989-3 ####[facility] LABCLIA [id number] [address] [facility] W Auto Differential panel (Bld)on 51-91-6531Ewvgdbcip (Bld) [#/Vol]0.03 10*3/uL Normal<0.11C[facility] on above:Order Comment: Specimen Type: BLOOD SPECIMENOrdering Facility: [facility] Address:[address] [place], [place] [address]Performed By: #### 67199-6 ####[facility] LABCLIA [id number] [place] [address] Basophils/100 WBC (Bld)0.3 %NormalOhio Valley Surgical Hospital on above: Order Comment: Specimen Type: BLOOD SPECIMENOrdering Facility: [facility] Address:[address] [place], [place] [address]Performed By: #### 50986- 8 ####[facility] LABCLIA [id number] [place], [place] [address]Tydnaazmbvzw cell count method Nom (Bld)AutoNormal [facility] on above:Order Comment: Specimen Type: BLOOD SPECIMENOrdering Facility: [facility] Address:[address] [place], [place] [address]Performed By: #### 91244-7 ####[facility] LABCLIA [id number] [place], [place] [address]Jgyyphuuacm (Bld) [#/Vol]0.06 10*3/uLNormal<0.46[facility] on above: Order Comment: Specimen Type: BLOOD SPECIMENOrdering Facility: [facility] Address:[address] [place], [place] [address]Performed By: #### 99815- 8 ####[facility] LABCLIA [id number] [place], [place] [address]Nrnzodzhbnb/100 WBC (Bld)0.7 %NormalOhio Valley Surgical Hospital on above:Order Comment: Specimen Type: BLOOD SPECIMENOrdering Facility: [facility] Address:[address] [place], [place] [address]Performed By: #### 39487-8 ####[facility] LABIA [id number] [place], [place] [address]Letmtzoybwz distribution width (RBC) [Ratio]13.3 %Dpokwl24.5-15.0[facility] on above: Order Comment: Specimen Type: BLOOD SPECIMENOrdering Facility: [facility] Address:[address] [place], [place] [address]Performed By: #### 81954- 8 ####[facility] LABCLIA [id number] [place], [place] [address]Adkwqbdngl (Bld) [Volume fraction]33.0 %Low36.0-46.0 [facility] on above:Order Comment: Specimen Type: BLOOD SPECIMENOrdering Facility: [facility] Address:[address] [place], [place] [address]Performed By: #### 64380-5 ####[facility] LABIA [id number] [place], [place] [address]Jmryfvngnt (Bld) [Mass/Vol]11.6 g/uFWlpzlq19.5-15.5C[facility] on above: Order Comment: Specimen Type: BLOOD SPECIMENOrdering Facility: [facility] Address:[address] [place], [place] [address]Performed By: #### 95849- 8 ####[facility] LABIA [id number] [place], [place] [address]Furglnds granulocytes (Bld) [#/Vol]0.04 10*3/uLNormal <0.10[facility] on above:Order Comment: Specimen Type: BLOOD SPECIMENOrdering Facility: [facility] Address:[address] [place], [place] [address]Performed By: #### 39099-4 ####[facility] LABIA [id number] [place], [place] [address]Elaadvni granulocytes/100 WBC (Bld)0.5 %NormalOhio Valley Surgical Hospital on above: Order Comment: Specimen Type: BLOOD SPECIMENOrdering Facility: [facility] Address:[address] [place], [place] [address]Performed By: #### 26251- 8 ####[facility] LABIA [id number] [place], [place] [address]Oisiafohdyu (Bld) [#/Vol]2.31 10*3/uLNormal1.00-4.00 [facility] on above:Order Comment: Specimen Type: BLOOD SPECIMENOrdering Facility: [facility] Address:[address] [place], [place] [address]Performed By: #### 85605-4 ####[facility] LABCLIA [id number] [place], [place] [address]Qhthrolasgi/100 WBC (Bld)26.7 %NormalOhio Valley Surgical Hospital on above:Order Comment: Specimen Type: BLOOD SPECIMENOrdering Facility: [facility] Address:[address] [place], [place] [address]Performed By: #### 88991-8 ####[facility] LABCLIA [id number] [place], [place] [address]IBJ (RBC) [Entitic mass]31.3 cgJloknp62.0-34.0[facility] on above:Order Comment: Specimen Type: BLOOD SPECIMENOrdering Facility: [facility] Address:[address] [place], [place] [address]Performed By: #### 06305-0 ####[facility] LABCLIA [id number] [place], [place] [address]MBWK (RBC) [Mass/Vol]35.2 g/qZEqyffa79.5-36.0[facility] on above: Order Comment: Specimen Type: BLOOD SPECIMENOrdering Facility: [facility] Address:[address] [place], [place] [address]Performed By: #### 58795- 8 ####[facility] LABCLIA [id number] [place], [place] [address]ZHU (RBC) [Entitic vol]88.9 zZWlygza13.0-100.0[facility] on above:Order Comment: Specimen Type: BLOOD SPECIMENOrdering Facility: [facility] Address:[address] [place], [place] [address]Performed By: #### 84504-2 ####[facility] LABCLIA [id number] [place], [place] [address]Oqfojxkqv (Bld) [#/Vol]0.63 10*3/uLNormal<0.87[facility] on above:Order Comment: Specimen Type: BLOOD SPECIMENOrdering Facility: [facility] Address:[address] [place], [place] [address]Performed By: #### 95448- 8 ####[facility] LABCLIA [id number] [place], [place] [address]Rjvldxpeq/100 WBC (Bld)7.3 %NormalOhio Valley Surgical Hospital on above:Order Comment: Specimen Type: BLOOD SPECIMENOrdering Facility: [facility] Address:[address] [place], [place] [address]Performed By: #### 63220-4 ####[facility] LABCLIA [id number] [place], [place] [address]Tpepiecoohj (Bld) [#/Vol]5.57 10*3/uLNormal1.45-7.50[facility] on above:Order Comment: Specimen Type: BLOOD SPECIMENOrdering Facility: [facility] Address:[address] [place], [place] [address]Performed By: #### 50472-3 ####[facility] LABCLIA [id number] [place], [place] [address]Echgjwdyopj/100 WBC (Bld)64.5 %NormalOhio Valley Surgical Hospital on above:Order Comment: Specimen Type: BLOOD SPECIMENOrdering Facility: [facility] Address:[address] [place], [place] [address]Performed By: #### 37037-5 ####[facility] LABIA [id number] [place], [place] [address]Olrbivxij RBC (Bld) [#/Vol] 10*3/uLNormal<0.01[facility] on above:Order Comment: Specimen Type: BLOOD SPECIMENOrdering Facility: [facility] Address:[address] [place], [place] [address]Performed By: #### 86611-0 ####[facility] LABCLIA [id number] [place], [place] [address]Euhkqossz RBC/100 WBC (Bld) [Ratio]0.0 /100 WBCNormal [facility] on above:Order Comment: Specimen Type: BLOOD SPECIMENOrdering Facility: [facility] Address:[address] [place], [place] [address]Performed By: #### 78996-4 ####[facility] LABCLIA [id number] [place], [place] [address]Asshsgin mean volume (Bld) [Entitic vol]9.4 fLNormal9.0-12.7CUniversity [facility] on above:Order Comment: Specimen Type: BLOOD SPECIMENOrdering Facility: [facility] Address:[address] [place] [address] Performed By: #### 26398-9 ####[facility] LABCLIA [id number] [place], [place] [address]Pifmjlmxm (Bld) [#/Vol]257 10*3/gHRbteko321-495OytaudjxcOhio Valley Surgical Hospital on above:Order Comment: Specimen Type: BLOOD SPECIMENOrdering Facility: [facility] Address:[address] [place], [place] [address]Performed By: #### 90274-0 ####[facility] LABCLIA [id number] [place], [place] [address]HAN (Bld) [#/Vol]3.71 10*6/uLLow3.90-5.20[facility] on above:Order Comment: Specimen Type: BLOOD SPECIMENOrdering Facility: [facility] Address:[address] [place] [address] [place], [place] [address]Rpzckxuii By: #### 09373-8 ####[facility] LABCLIA [id number] [place], [place] [address]QVO (Bld) [#/Vol]8.64 10*3/uL Normal3.70-11.00[facility]. [facility] HospitalComment on above:Order Comment: Specimen Type: BLOOD SPECIMENOrdering Facility: [facility] Address:[address] [place], [place] [address]Pknzhayva By: #### 75203-9 ####[facility] LABCLIA [id number] [place], [place] [address]PORSTByi 02-44-6733QGJBKUGwgzp (SP) Office (HEMASA) JUSTICESANNA ([id number]) 1985 F Date Time Provider Department 03/02/25 11:30 AM KATHERINE NEGRETE During your visit today, we recorded the following information about you: Temperature Pulse Respiration Blood pressure 97.2 degrees 73/minute 16/minute 133/79 Weight 97.2 kg Katherine Negrete, VICTOR HUGO.MACHINE BOBBIN WINDER 03/02/2025 8:18 PM Signed NAME: Sanna Rendon CLINIC NO.: [id number] DATE OF SERVICE: March 02, 2025 (Penelope) Some elements in this clinic note that are critical to medical decision making have been carefully reviewed and included from a prior clinic note dated: December 23, 2024 (Penelope) Additional Clinicians involved in Sanna Rendon's care: Drs. Herrmann, Jorge Monge, Humaira Gaviria, Dr. Boothe CC: Hypercoag state CASE SUMMARY / ASSESSMENT: 39 year old woman presents with a prior history of CVA in 2016 and an antiphospholipid antibody that was identified much later in 2018. These were found in [place], [place]. 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 The patient has [...] blood glucose levels over 100 mg/dL and postpra (more content not included)... NormalSt. Charles HospitalComprehensive metabolic 2000 panelon 03-02-2025 Albumin [Mass/Vol]4.1 g/dLNormal3.9-4.9C[facility] on above:Order Comment: Specimen Type: BLOOD SPECIMENOrdering Facility: [facility] Address:[address] [place], [place] [address]Zbymmthyh By: #### 53639-7 ####[facility] LABCLIA [id number] [place], [place] [address]YZW [Catalytic activity/Vol]64 U/ATqplil47-446 [facility] on above:Order Comment: Specimen Type: BLOOD SPECIMENOrdering Facility: [facility] Address:[address] [place], [place] [address]Performed By: #### 05759-8 ####[facility] LABCLIA [id number] [place] [address]KJF [Catalytic activity/Vol]10 U/LNormal7-38[facility] on above:Order Comment: Specimen Type: BLOOD SPECIMENOrdering Facility: [facility] Address:[address] [place], [place] [address]Performed By: #### 42745- 8 ####[facility] LABCLIA [id number] [facility] [place], [place] [address]Zmtny gap [Moles/Vol]13 mmol/LNormal8-15[facility] on above:Order Comment: Specimen Type: BLOOD SPECIMENOrdering Facility: [facility] Address:[address] [place], [place] [address]Performed By: #### 60632-4 ####[facility] LABCLIA [id number] [facility], [place] [address]APG [Catalytic activity/Vol]12 U/APye74-71PvqabzrkiOhio Valley Surgical Hospital on above:Order Comment: Specimen Type: BLOOD SPECIMENOrdering Facility: [facility] Address:[address] [place], [place] [address]Performed By: #### 21804-1 ####[facility] LABCLIA [id number] [facility] [place] [address] Bilirubin [Mass/Vol]0.2 mg/dLNormal0.2-1.3CUniversity [facility] on above:Order Comment: Specimen Type: BLOOD SPECIMENOrdering Facility: [facility] Address:[address] [place], [place] [address]Performed By: #### 37907-6 ####[facility] LABCLIA [id number] [place], [place] [address]Kermhua [Mass/Vol]10.3 mg/dLHigh8.5-10.2CUniversity [facility] on above:Order Comment: Specimen Type: BLOOD SPECIMENOrdering Facility: [facility] Address:[address] [place], [place] [address]Performed By: #### 41326-1 ####[facility] LABCLIA [id number] [place], [place] [address]Phqqjsnz [Moles/Vol]97 mmol/RElc07-419AeiiwclfdOhio Valley Surgical Hospital on above:Order Comment: Specimen Type: BLOOD SPECIMENOrdering Facility: [facility] Address:[address] [place], [place] [address]Performed By: #### 18979- 8 ####[facility] LABCLIA [id number] [place], [place] [address]HP5 [Moles/Vol]21 mmol/XRri08-58VfpyvhigvOhio Valley Surgical Hospital on above:Order Comment: Specimen Type: BLOOD SPECIMENOrdering Facility: [facility] Address:[address] [place], [place] [address]Performed By: #### 10937-1 ####[facility] LABCLIA [id number] [place], [place] [address]Stkjkpwxcy [Mass/Vol]0.54 mg/dL Low0.58-0.96[facility] on above:Order Comment: Specimen Type: BLOOD SPECIMENOrdering Facility: [facility] Address:[address] [place], [place] [address]Performed By: #### 78432-9 ####[facility] LABIA [id number] [place] [address] eGFRcr SerPlBld CKD-EPI 2220084 mL/min/1.73m???Normal>=60[facility] on above:Order Comment: Specimen Type: BLOOD SPECIMENOrdering Facility: [facility] Address:[address] [place], [place] [address]Zvjzkb Comment: Estimated Glomerular Filtration Rate (eGFR) is [...] accurately reflect actual GFR. Performed By: #### 47267-7 ####[facility] LABCLIA [id number] [place], [place] [address]Lhmcvoq [Mass/Vol]71 mg/dLLow 74-99[facility] on above:Order Comment: Specimen Type: BLOOD SPECIMENOrdering Facility: [facility] Address:[address] [place] [address]Sryniy Comment: The [place] [employer] (ADA) provides guidance for cutoff [...] Standards of Medical Care in Diabetes 2016, [place] [employer]. Diabetes Care. 2016.39(Suppl 1).Performed By: #### 05162-8 ####[facility] LABCLIA [id number] [place], [place] [address]Iyoqkhvtg [Moles/Vol]3.9 mmol/LNormal3.7-5.1CUniversity [facility] on above:Order Comment: Specimen Type: BLOOD SPECIMENOrdering Facility: [facility] Address:[address] [place] [address]Vfkpgxkll By: #### 78204-2 ####[facility] LABCLIA [id number] [place], [place] [address]Pcgszgy [Mass/Vol]7.2 g/dLNormal6.3-8.0[facility] on above:Order Comment: Specimen Type: BLOOD SPECIMENOrdering Facility: [facility] Address:[address] [place], [place] [address]Performed By: #### 77884- 8 ####[facility] LABCLIA [id number] [place], [place] [address]Gaudbw [Moles/Vol]131 mmol/KGto865-931HjfhwvatcOhio Valley Surgical Hospital on above:Order Comment: Specimen Type: BLOOD SPECIMENOrdering Facility: [facility] Address:[address] [place], [place] [address]Performed By: #### 88865-8 ####[facility] LABCLIA [id number] [place], [place] [address]Dguy nitrogen [Mass/Vol]9 mg/dL Normal7-21[facility] on above:Order Comment: Specimen Type: BLOOD SPECIMENOrdering Facility: [facility] Address:[address] [place], [place] [address]Performed By: #### 98707-4 ####[facility] LABIA [id number] [place] [address] US OB BPP W NON-STRESSon 84-22[place] [address] Ultrasound Report Signed Patient: SANNA RENDON MR#: [id number] : 1985 Acct:[id number] Age/Sex: 39 / F ADM Date: 02/26/25 Loc: US Attending Dr: Wilton Herrmann D.O. Ordering Physician: Wilton Herrmann D.O. Date of Service: 02/26/25 Procedure(s): US OB BPP w non-stress Accession Number(s): [id number] cc: Wilton Herrmann D.O.; Physician,Non-Staff M.Ashvin [facility] [place] [id number] Patient Name: SANNA RENDON MRN: [facility]:[id number] date: 1985 Sex: F Assigned Patient Location: US Current Patient Location: Accession/Order Number: [id number] Exam Date: 02/26/2025 19:42 Report Date: 02/27/2025 10:53 At the request of: WILTON HERRMANN DO Procedure: US OB BPP w non-stress BIOPHYSICAL PROFILE: CLINICAL INFORMATION: THIRD TRIMESTER Z34.93 COMPARISON: 02/19/2025 There is a single live intrauterine gestation in cephalic presentation. The reported gestational age is 30 weeks 3 days. The heart rate measures 148 beats per minute. FINDINGS: TONE: 1 [...] Pisano M.D. 02/27/2025 10:53 AM Dictation Location: [place] [address] Electronically authenticated by: [id number] Y Date: 02/27/2025 10:53 Dictated By: Pamela Pisano M.D. Signed By: 02/27/25 1056 DD/ 1053 TD/TT: Assistant Community Director:MANUELHRadiology, Radiologist, - 02/27/2025 [place] [address] Ultrasound Report Signed Patient: SANNA RENDON MR#: [id number] : 1985 Acct:[id number] Age/Sex: 39 / F ADM Date: 02/26/25 Loc: US Attending Dr: Wilton Herrmann D.O. Ordering Physician: Wilton Herrmann D.O. Date of Service: 02/26/25 Procedure(s): US OB BPP w non-stress Accession Number(s): [id number] cc: Wilton Herrmann D.O.; Physician,Non-Staff [place] [id number] Patient Name: SANNA RENDON MRN: [id number] date: 1985 Sex: F Assigned Patient Location: [place] Current Patient Location: Accession/Order Number: [id number] Exam Date: 02/26/2025 19:42 Report Date: 02/27/2025 10:53 At the request of: WILTON HERRMANN DO Procedure: US OB BPP w non-stress BIOPHYSICAL PROFILE: CLINICAL INFORMATION: THIRD TRIMESTER Z34.93 COMPARISON: 02/19/2025 There is a single live intrauterine gestation in cephalic presentation. The reported gestational age is 30 weeks 3 days. The heart rate measures 148 beats per minute. FINDINGS: TONE: 1 [...] Pisano M.D. 02/27/2025 10:53 AM Dictation Location: [place] [address] Electronically authenticated by: [id number] Y Date: 02/27/2025 10:53 Dictated By: Pamela Pisano M.D. Signed By: 02/27/25 1056 DD/ 105 TD/TT: Assistant Community Director: SHILOH HealthcareRadiology Study observation (narrative)NOMS HealthcareUS OB BPP W NON-STRESSOrdered By: Radiologist Radiology on 83-12-5345UIOP [employer] Work Phone: Urinalysis macro (dipstick) panel (U)on 02-23-2025 Bilirubin, UANegativeNegative - 4(70) +++ mg/dLNOMS HealthcareBlood, UANegative Negative - 50 Max/mcLNOMS HealthcareClarity, UAClearNOMS HealthcareColor, UA YellowNOMS HealthcareGlucose, UANegativeNegative - 2000(110) ++++ mg/dLNOMS HealthcareInterpretation and review of laboratory resultsNormalNOMS Healthcare Ketones, UANegativeNegative - 160(16) ++++ mg/dLNOMS HealthcareLeukocytes, UA NegativeNegative - 500+++ John/mcLNOMS HealthcareNitrite, UANegativeNegative - PositiveNOMS HealthcarepH, UA6.05 - 9NOMS HealthcareProtein, UANegativeNegative - 2000(20) ++++ mg/dLNOMS HealthcareSpec Grav, UA1.0101 - 1.03[facility] Urobilinogen, UA0.20.2 - 12 mg/dLNOMS HealthcareNOMS HealthcareNo Panel InformationOrdered By: Radiologist Radiology on 91-41-8736WYWR [employer] Work Phone: No Panel Informationon 76-53-1267Itslyfsmd Study observation (narrative)NOMJaylan HealthcareUS OB BPP W NON-STRESSon 02-20-2025 [place] [address] Ultrasound Report Signed Patient: SANNA RENDON MR#: [id number] : 1985 Acct:[id number] Age/Sex: 39 / F ADM Date: 02/19/25 Loc: US Attending Dr: Wilton Herrmann D.O. Ordering Physician: Wilton Herrmann D.O. Date of Service: 02/19/25 Procedure(s): US OB BPP w non-stress Accession Number(s): [id number] cc: Wilton Herrmann D.O.; Physician,Non-Staff M.DLazara The [place] [address] Patient Name: SANNA RENDON MRN: [facility]:[id number] date: 1985 Sex: F Assigned Patient Location: LAB Current Patient Location: Accession/Order Number: [id number] Exam Date: 02/19/2025 19:47 Report Date: 02/20/2025 [...] Pisano M.D. 02/20/2025 8:37 AM Dictation Location: [place] [address] Electronically authenticated by: [id number] Y Date: 02/20/2025 08:37 Dictated By: Pamela Pisano M.D. Signed By: 02/20/25 0840 DD/ 0837 TD/TT: Assistant Community Director:ELVERadiologcarmen, Radiologist, - 02/20/2025 The [place] [id number] Ultrasound Report Signed Patient: SANNA RENDON MR#: [id number] : 1985 Acct:[id number] Age/Sex: 39 / F ADM Date: 02/19/25 Loc: US Attending Dr: Wilton Herrmann D.O. Ordering Physician: Wilton Herrmann D.O. Date of Service: 02/19/25 Procedure(s): US OB BPP w non-stress Accession Number(s): [id number] cc: Wilton Herrmann D.O.; Physician,Non-Staff Tamia The [place] [id number] Patient Name: SANNA RENDON MRN: [facility]:[id number] date: 1985 Sex: F Assigned Patient Location: LAB Current Patient Location: Accession/Order Number: [id number] Exam Date: 02/19/2025 19:47 Report Date: 02/20/2025 [...] IMPRESSION: NORMAL BIOPHYSICAL PROFILE Impression dictated by: aPmela Pisano M.D. 02/20/2025 8:37 AM Dictation Location: [place] [address] Electronically authenticated by: [id number] Y Date: 02/20/2025 08:37 Dictated By: Pamela Pisano M.D. Signed By: 02/20/2540 DD/ TD/TT: Assistant Community Director: SHILOH [place] [address] Ultrasound Report Signed Patient: SANNA RENDON MR#: [id number] : 1985 Acct:[id number] Age/Sex: 39 / F ADM Date: 02/19/25 Loc: US Attending Dr: Wilton Herrmann D.O. Ordering Physician: Wilton Herrmann D.O. Date of Service: 02/19/25 Procedure(s): US OB growth Accession Number(s): [id number] cc: Wilton Herrmann D.O.; Physician,Non-Staff MGiovanni The [address] [address] Patient Name: SANNA RENDON MRN: [id number]:[id number] date: 1985 Sex: F Assigned Patient Location: LAB Current Patient Location: Accession/Order Number: [id number] Exam Date: 02/19/2025 19:47 Report Date: 02/20/2025 [...] Pisano M.D. 02/20/2025 8:37 AM Dictation Location: [place] [address] Electronically authenticated by: [id number] Y Date: 02/20/2025 08:37 Dictated By: Pamela Pisano M.D. Signed By: 02/20/25 0840 DD/ TD/TT: Assistant Community Director:TBHRadiology, Radiologist, - 02/20/[address] [address] Ultrasound Report Signed Patient: SANNA RENDON MR#: [id number] : 1985 Acct:[id number] Age/Sex: 39 / F ADM Date: 02/19/25 Loc: US Attending Dr: Wilton Herrmann D.O. Ordering Physician: Wilton Herrmann D.O. Date of Service: 02/19/25 Procedure(s): US OB growth Accession Number(s): [id number] cc: Wilton Herrmann D.O.; Physician,Non-Staff M.DLazara [place] [address] Patient Name: SANNA RENDON MRN: [facility]:[id number] date: 1985 Sex: F Assigned Patient Location: LAB Current Patient Location: Accession/Order Number: [id number] Exam Date: 02/19/2025 19:47 Report Date: 02/20/2025 [...] Pisano M.D. 02/20/2025 8:37 AM Dictation Location: [place] [address] Electronically authenticated by: [id number] Y Date: 02/20/2025 08:37 Dictated By: Pamela Pisano M.D. Signed By: 02/20/25839 DD/ 6 TD/TT: Assistant Community Director: SHILOH BrowningUrinalysis macro (dipstick) panel (U)on 55-96-8524Iscseyiwe, UA NegativeNegative - 4(70) +++ mg/dLNOMS HealthcareBlood, [...] 1.03[facility] Urobilinogen, UA2.00.2 - 12 mg/dLNOMS HealthcareNOMS HealthcareCNPNon 01-29-2025 CNPNTelephone (HEMASA) SANNA RENDON ([id number]) 1985 F Date Time Provider Department 01/29/25 [...] 05/28/2024 Encounter Status:Closed by RACHAEL JOHNSON on 01/30/25[facility] 13-42-5701SXLMFsdfghqlh (ROD) SANNA RENDON ([id number]) 1985 F Date Time Provider Department 01/26/25 [...] Date Reviewed: 12/24/2024 Reviewed by: Katherine Negrete APRN.MACHINE BOBBIN WINDER - Fully Assessed Prescriptions as of 01/26/2025 [...] 05/28/2024 Encounter Status:Closed by RACHAEL JOHNSON on 01/26/25NoalCSelect Medical Specialty Hospital - ColumbusUrinalysis macro (dipstick) panel (U)on 47-63-9753Deczahavi, UANegative Negative - 4(70) +++ mg/dLNOMS HealthcareBlood, [...] HealthcareUrobilinogen, UA0.20.2 - 12 mg/dLNOMS HealthcareNOMS HealthcareTSHon 65-58-7880UUJ Qn1.85 m[IU]/LNormal 0.34-5.60Alecer [facility] Orthopaedic InstituteComment on above:Performed By: #### [id number] #### Braulio [facility] [address] [place], [place] [address]Wtvkdvpwix macro (dipstick) panel (U)on 04-90-6325Iyunfacgn, UA NegativeNegative - 4(70) +++ mg/dLNOMS HealthcareBlood, UANegativeNegative - 50 Max/mcLNOMS HealthcareClarity, UAClearNOMS HealthcareColor, UAYellowNOMS HealthcareGlucose, UANegativeNegative - 2000(110) ++++ mg/dLNOVA Healthcare Interpretation and review of laboratory resultsNormalNOMS HealthcareKetones, UA NegativeNegative - 160(16) ++++ mg/dLNOVA HealthcareLeukocytes, UANegative Negative - 500+++ John/mcLNOVA HealthcareNitrite, UANegativeNegative - Positive NOMS HealthcarepH, UA75 - 9NOMS HealthcareProtein, UANegativeNegative - 2000(20) ++++ mg/dLNOVA HealthcareSpec Grav, UA1.011 - 1.03NOMS HealthcareUrobilinogen, UA1.00.2 - 12 mg/dLNOMS HealthcareNOMS HealthcareCBC W Auto Differential panel (Bld)on 30-51-9472Fwlwgesai (Bld) [#/Vol]10*3/uLNormal<0.11CSelect Medical Specialty Hospital - ColumbusComment on above:Order Comment: Specimen Type: BLOOD SPECIMENOrdering Facility: [facility] Address:[address] [place], [place] [address]Performed By: #### 39225-6 ####[facility] LABIA [id number] [place], [place] [address]Poeksioia/100 WBC (Bld)0.2 % NormalSt. Charles HospitalComcorewell health big rapids hospital on above:Order Comment: Specimen Type: BLOOD SPECIMENOrdering Facility: [facility] Address:[address] [place], [place] [address]Performed By: #### 13750-4 ####[facility] LABIA [id number] [place] [address] Differential cell count method Nom (Bld)AutoNormalCSelect Medical Specialty Hospital - Columbus Comment on above:Order Comment: Specimen Type: BLOOD SPECIMENOrdering Facility: [facility] Address:[address] [place] [address] Performed By: #### 70865-1 ####[facility] LABCLIA [id number] [place], [place] [address]Oxjlqjvpnzd (Bld) [#/Vol]0.03 10*3/uLNormal<0.46[facility] on above:Order Comment: Specimen Type: BLOOD SPECIMENOrdering Facility: [facility] Address:[address] [place], [place] [address]Performed By: #### 70892-3 ####[facility] LABIA [id number] [place], [place] [address]Fvurlgqtopj/100 WBC (Bld)0.4 %NormalOhio Valley Surgical Hospital on above:Order Comment: Specimen Type: BLOOD SPECIMENOrdering Facility: [facility] Address:[address] [place], [place] [address]Performed By: #### 57532-6 ####[facility] CENTERIA [id number] [place], [place] [address]Wpiosknkgne distribution width (RBC) [Ratio]13.5 %Hyejfb17.5-15.0[facility] on above: Order Comment: Specimen Type: BLOOD SPECIMENOrdering Facility: [facility] Address:[address] [place], [place] [address]Performed By: #### 20356- 8 ####[facility] LABIA [id number] [place], [place] [address]Atwnfheisv (Bld) [Volume fraction]34.6 %Low36.0-46.0 [facility] on above:Order Comment: Specimen Type: BLOOD SPECIMENOrdering Facility: [facility] Address:[address] [place], [place] [address]Performed By: #### 43931-4 ####[facility] LABIA [id number] [place], [place] [address]Mjioenhzgy (Bld) [Mass/Vol]12.0 g/vPKoypbk79.5-15.5CUniversity Hospitals [facility] on above: Order Comment: Specimen Type: BLOOD SPECIMENOrdering Facility: [facility] Address:[address] [place], [place] [address]Performed By: #### 21219- 8 ####[facility] LABCLIA [id number] [place], [place] [address]Vktzvutg granulocytes (Bld) [#/Vol]0.04 10*3/uLNormal <0.10[facility] on above:Order Comment: Specimen Type: BLOOD SPECIMENOrdering Facility: [facility] Address:[address] [place], [place] [address]Performed By: #### 24128-2 ####[facility] LABCLIA [id number] [place], [place] [address]Naulcsnr granulocytes/100 WBC (Bld)0.5 %NormalOhio Valley Surgical Hospital on above: Order Comment: Specimen Type: BLOOD SPECIMENOrdering Facility: [facility] Address:[address] [place], [place] [address]Performed By: #### 73240- 8 ####[facility] LABCLIA [id number] [place], [place] [address]Gntgmzbpbwk (Bld) [#/Vol]2.45 10*3/uLNormal1.00-4.00 [facility] on above:Order Comment: Specimen Type: BLOOD SPECIMENOrdering Facility: [facility] Address:[address] [place], [place] [address]Performed By: #### 56129-1 ####[facility] LABCLIA [id number] [place], [place] [address]Tykyybchacx/100 WBC (Bld)28.7 %NormalOhio Valley Surgical Hospital on above:Order Comment: Specimen Type: BLOOD SPECIMENOrdering Facility: [facility] Address:[address] [place], [place] [address]Performed By: #### 19822-5 ####[facility] LABCLIA [id number] [place], [place] [address]BAG (RBC) [Entitic mass]31.6 vqLyqtrr35.0-34.0[facility] on above:Order Comment: Specimen Type: BLOOD SPECIMENOrdering Facility: [facility] Address:[address] [place], [place] [address]Performed By: #### 78741-4 ####[facility] LABCLIA [id number] [place], [place] [address]SCLA (RBC) [Mass/Vol]34.7 g/oSMjmzmq58.5-36.0[facility] on above: Order Comment: Specimen Type: BLOOD SPECIMENOrdering Facility: [facility] Address:[address] [place], [place] [address]Performed By: #### 37668- 8 ####[facility] LABCLIA [id number] [place], [place] [address]LPW (RBC) [Entitic vol]91.1 nGPoejay09.0-100.0[facility] on above:Order Comment: Specimen Type: BLOOD SPECIMENOrdering Facility: [facility] Address:[address] [place], [place] [address]Performed By: #### 30374-3 ####[facility] LABCLIA [id number] [place], [place] [address]Hdclsspvm (Bld) [#/Vol]0.44 10*3/uLNormal<0.87[facility] on above:Order Comment: Specimen Type: BLOOD SPECIMENOrdering Facility: [facility] Address:[address] [place], [place] [address]Performed By: #### 32229- 8 ####[facility] LABCLIA [id number] [place], [place] [address]Enufqfgzq/100 WBC (Bld)5.1 %NormalOhio Valley Surgical Hospital on above:Order Comment: Specimen Type: BLOOD SPECIMENOrdering Facility: [facility] Address:[address] [place], [place] [address]Performed By: #### 13161-3 ####[facility] LABIA [id number] [place], [place] [address]Wtqzhsodneo (Bld) [#/Vol]5.57 10*3/uLNormal1.45-7.50[facility] on above:Order Comment: Specimen Type: BLOOD SPECIMENOrdering Facility: [facility] Address:[address] [place], [place] [address]Performed By: #### 11742-5 ####[facility] LABIA [id number] [place], [place] [address]Jwjnulkxqwd/100 WBC (Bld)65.1 %NormalOhio Valley Surgical Hospital on above:Order Comment: Specimen Type: BLOOD SPECIMENOrdering Facility: [facility] Address:[address] [place], [place] [address]Performed By: #### 91200-7 ####[facility] LABIA [id number] [place], [place] [address]Ugdaqosso RBC (Bld) [#/Vol] 10*3/uLNormal<0.01[facility] on above:Order Comment: Specimen Type: BLOOD SPECIMENOrdering Facility: [facility] Address:[address] [place], [place] [address]Performed By: #### 80853-5 ####[facility] LABCLIA [id number] [place], [place] [address]Utgcybjjc RBC/100 WBC (Bld) [Ratio]0.0 /100 WBCNormal [facility] on above:Order Comment: Specimen Type: BLOOD SPECIMENOrdering Facility: [facility] Address:[address] [place], [place] [address]Performed By: #### 71205-3 ####[facility] LABIA [id number] [place], [place] [address]Kfwhpqwj mean volume (Bld) [Entitic vol]9.7 fLNormal9.0-12.7CUniversity Hospitals [facility] on above:Order Comment: Specimen Type: BLOOD SPECIMENOrdering Facility: [facility] Address:[address] [place] [address] Performed By: #### 55035-1 ####[facility] LABCLIA [id number] [place], [place] [address]Zqlypjflb (Bld) [#/Vol]260 10*3/vIFsjfeh329-682XikeomdjeOhio Valley Surgical Hospital on above:Order Comment: Specimen Type: BLOOD SPECIMENOrdering Facility: [facility] Address:[address] [place], [place] [address]Performed By: #### 74941-8 ####[facility] LABCLIA [id number] [place], [place] [address]RVL (Bld) [#/Vol]3.80 10*6/uLLow3.90-5.20[facility] on above:Order Comment: Specimen Type: BLOOD SPECIMENOrdering Facility: [facility] Address:[address] [place], [place] [address]Performed By: #### 92998-2 ####[facility] LABCLIA [id number] [place], [place] [address]VPM (Bld) [#/Vol]8.55 10*3/uL Normal3.70-11.00[facility] on above:Order Comment: Specimen Type: BLOOD SPECIMENOrdering Facility: [facility] Address:[address] [place], [place] [address]Performed By: #### 17205-3 ####[facility] LABIA [id number] [place], [place] [address]CTLXFXsd 63-34-7531DZDERUAmsha (SP) Office (HEMASA) SANNA RENDON ([id number]) 1985 F Date Time Provider Department 12/23/24 11:30 AM KATHERINE NEGRETE During your visit today, we recorded the following information about you: Temperature Pulse Respiration Blood pressure 97.6 degrees 80/minute 16/minute 103/69 Weight Height 94.4 kg 1.677 m Katherine Negrete APRN.MACHINE BOBBIN WINDER 12/24/2024 9:07 PM Signed NAME: Sanna Rendon CLINIC NO.: [id number] DATE OF SERVICE: December 23, 2024 (Penelope) Some elements in this clinic note that are critical to medical decision making have been carefully reviewed and included from a prior clinic note dated: October 28, 2024 (Penelope) Additional Clinicians involved in Sanna Rendon's care: Jorge Mcwilliams, Humaira Gaviria, Dr. Boothe CC: Hypercoag state CASE SUMMARY / ASSESSMENT: 39 year old woman presents with a prior history of CVA in 2016 and an antiphospholipid antibody that was identified much later in 2018. These were found in [place], [place]. I don't have access to these [...] a target-like rash shortly before presenting to [facility] in 2016 with headaches and [...] vitamin D supplementat (more content not included)...Normal [facility] Hospitalprehensive metabolic 2000 panelon 90-93-0278Toyhass [Mass/Vol]4.1 g/dLNormal3.9-4.9CUniversity Hospitals [facility] on above:Order Comment: Specimen Type: BLOOD SPECIMENOrdering Facility: [facility] Address:[address] [place], [place] [address]Performed By: #### 21085- 8 ####[facility] LABCLIA [id number] [place], [place] [address]IWP [Catalytic activity/Vol]43 U/INbyvnb87-520NfrqualqaOhio Valley Surgical Hospital on above:Order Comment: Specimen Type: BLOOD SPECIMENOrdering Facility: [facility] Address:[address] [place], [place] [address]Performed By: #### 43270-4 ####[facility] LABCLIA [id number] [place], [place] [address]GMD [Catalytic activity/Vol]11 U/LNormal7-38[facility] on above:Order Comment: Specimen Type: BLOOD SPECIMENOrdering Facility: [facility] Address:[address] [place], [place] [address]Performed By: #### 78037- 8 ####[facility] LABCLIA [id number] [facility] [place] [facility] [place] [address]Xbzsk gap [Moles/Vol]12 mmol/LNormal8-15[facility] on above:Order Comment: Specimen Type: BLOOD SPECIMENOrdering Facility: [facility] Address:[address] [place], [place] [address]Performed By: #### 43035-0 ####[facility] LABCLIA [id number] [facility], [place] [address]UPB [Catalytic activity/Vol]12 U/IJri84-88OfilxcbfrOhio Valley Surgical Hospital on above:Order Comment: Specimen Type: BLOOD SPECIMENOrdering Facility: [facility] Address:[address] [place], [place] [address]Performed By: #### 17378-7 ####[facility] LABCLIA [id number] [facility] [place] [address] Bilirubin [Mass/Vol]0.2 mg/dLNormal0.2-1.3CUniversity Hospitals [facility] on above:Order Comment: Specimen Type: BLOOD SPECIMENOrdering Facility: [facility] Address:[address] [place], [place] [address]Performed By: #### 98840-9 ####[facility] LABCLIA [id number] [place] [address]Qjjwbpw [Mass/Vol]9.5 mg/dLNormal8.5-10.2CUniversity Hospitals [facility] on above:Order Comment: Specimen Type: BLOOD SPECIMENOrdering Facility: [facility] Address:[address] [place], [place] [address]Performed By: #### 35089-5 ####[facility] LABIA [id number] [facility], [place] [address]Gmugtssc [Moles/Vol]98 mmol/CMmcmty67-611VdxrnbfecOhio Valley Surgical Hospital on above:Order Comment: Specimen Type: BLOOD SPECIMENOrdering Facility: [facility] Address:[address] [place], [place] [address]Performed By: #### 45011- 8 ####[facility] LABCLIA [id number] [place], [place] [address]IA7 [Moles/Vol]20 mmol/THuz74-72NmmokqfspOhio Valley Surgical Hospital on above:Order Comment: Specimen Type: BLOOD SPECIMENOrdering Facility: [facility] Address:[address] [place], [place] [address]Performed By: #### 76035-3 ####[facility] LABCLIA [id number] [place], [place] [address]Ozcnrricej [Mass/Vol]0.54 mg/dL Low0.58-0.96[facility] on above:Order Comment: Specimen Type: BLOOD SPECIMENOrdering Facility: [facility] Address:[address] [place], [place] [address]Performed By: #### 50028-2 ####[facility] LABIA [id number] [place] [address] eGFRcr SerPlBld CKD-EPI 1864759 mL/min/1.73m???Normal>=60[facility] on above:Order Comment: Specimen Type: BLOOD SPECIMENOrdering Facility: [facility] Address:[address] [place], [place] [address]Result Comment: Estimated Glomerular Filtration Rate (eGFR) is [...] accurately reflect actual GFR. Performed By: #### 28849-6 ####[facility] LABIA [id number] [place], [place] [address]Qgdszwt [Mass/Vol]104 mg/dLHigh 74-99[facility] on above:Order Comment: Specimen Type: BLOOD SPECIMENOrdering Facility: [facility] Address:[address] [place], [place] [address]Result Comment: The [place] [employer] (ADA) provides guidance for cutoff [...] Standards of Medical Care in Diabetes 2016, [place] [employer]. Diabetes Care. 2016.39(Suppl 1).Performed By: #### 65428-9 ####[facility] LABCLIA [id number] [place], [place] [address]Bosfadxim [Moles/Vol]4.0 mmol/LNormal3.7-5.1CUniversity Hospitals [facility] on above:Order Comment: Specimen Type: BLOOD SPECIMENOrdering Facility: [facility] Address:[address] [place], [place] [address]Performed By: #### 26762-5 ####[facility] LABCLIA [id number] [place], [place] [address]Jaatojp [Mass/Vol]6.7 g/dLNormal6.3-8.0[facility] on above:Order Comment: Specimen Type: BLOOD SPECIMENOrdering Facility: [facility] Address:[address] [place], [place] [address]Performed By: #### 96460- 8 ####[facility] LABCLIA [id number] [place], [place] [address]Qxjruh [Moles/Vol]130 mmol/LBwh835-398XrtvuzbrdOhio Valley Surgical Hospital on above:Order Comment: Specimen Type: BLOOD SPECIMENOrdering Facility: [facility] Address:[address] [place], [place] [address]Performed By: #### 24504-7 ####[facility] LABCLIA [id number] [place], [place] [address]Gxqi nitrogen [Mass/Vol]7 mg/dL Normal7-21[facility] on above:Order Comment: Specimen Type: BLOOD SPECIMENOrdering Facility: [facility] Address:[address] [place], [place] [address]Performed By: #### 39028-6 ####[facility] LABCLIA [id number] [place] [address] Ferritin SerPl-mCncon 68-10-2448Tfryynlb [Mass/Vol]43.5 ng/gYRkzosu80.7-205.1 [facility] on above:Order Comment: Specimen Type: BLOOD SPECIMENOrdering Facility: [facility] Address:[address] [place], [place] [address]Performed By: #### 45678-2, 2275-07, 2131-12 ####[facility] LABCLIA [id number] [place] [address] [place] AMERIC[place]ron and Iron binding capacity panelon 12-23-2024 Iron [Mass/Vol]80 ug/vVAhetou39-027QagxfujmwOhio Valley Surgical Hospital on above: Order Comment: Specimen Type: BLOOD SPECIMENOrdering Facility: [facility] Address:[address] [place], [place] [address]Performed By: #### 84518- 8, 2275-07, 2131-12 ####[facility] LABCLIA [id number] [place] [address] [place] AMER[place]AIron binding capacity [Mass/Vol]437 ug/hGCcfd129-683RivzvbpjrOhio Valley Surgical Hospital on above:Order Comment: Specimen Type: BLOOD SPECIMENOrdering Facility: [facility] Address:[address] [place], [place] [address]Performed By: #### 38637- 8, 2275-07, 2131-12 ####[facility] LABCLIA [id number] [place] [address] [place] AMERICAIron/TIBC [Molar ratio]18.3 %Vvgpna55.0-57.0[facility] on above:Order Comment: Specimen Type: BLOOD SPECIMENOrdering Facility: [facility] Address:[address] [place] [place], [place] [address]Performed By: #### 05891- 8, 4, 2131-12 ####[facility] LABCLIA [id number] [address] STATES OF [facility] TOLEDOVit B12 SerPl-mCncon 41-28-7295Dfqfjenxb (Vitamin B12) [Mass/Vol]328 pg/yNPuuhiw040-4071ElnrdiwwaUniversity Hospitals Conneaut Medical Center on above:Order Comment: Specimen Type: BLOOD SPECIMENOrdering Facility: [facility] Address:[address] [place], [place] [address]Performed By: #### 11614-6, 2275-07, 2131-12 ####[facility] LABCLIA [id number] [place] [address] [place] AMERICATBH UA (CLEAN/CATCH) KITCHEN OPERATOR/MICRO IF IND.on 07-93-3063VEGNHMIYP URINENegativeNEGATIVENOMS HealthcareBLOOD URINENegative NEGATIVENOVA HealthcareClarity (U)CLEARCLEARNOVA HealthcareColor (U)LT. YELLOW YELLOWNOVA HealthcareGLUCOSE URINE UANegativeNEGATIVE mg/dLNOVA Healthcare Interpretation and review of laboratory resultsAbnormalNOMS HealthcareKetones Ql (U)NegativeNEGATIVE mg/dLNOVA HealthcareLeukocyte esterase Test strip Ql (U) SMALLAbnormalNEGATIVENOMS HealthcareNITRITE URINENegativeNEGATIVENOMS Healthcare pH (U)6.0 [pH]5.0 - 9.0NOMS HealthcarePROTEIN URINENegativeNEG/TRACE mg/dLNOVA HealthcareSPECIFIC GRAVITY URINE<=1.384Yzfpyhmf0.005 - 1.025NOVA HealthcareURINE MICROSCOPIC INDICATEDYESNOMS HealthcareUROBILINOGEN URINE0.2 EU/dL0.2 - 1.0 EU/dLNOVA HealthcareCLINISYNCNOMS HealthcareUS OB CERVICAL LENGTHon 12-16-[address] [address] Ultrasound Report Signed Patient: SANNA RENDON MR#: [id number] : 1985 Acct:[id number] Age/Sex: 39 / F ADM Date: Loc: [facility] 251-[address]: Wilton Herrmann D.O. Ordering Physician: Wilton Herrmann D.O. Date of Service: 12/16/24 Procedure(s): US OB cervical length Accession Number(s): [id number] cc: Wilton Herrmann D.O.; PENELOPE CASAS [place] [id number] Patient Name: SANNA RENDON MRN: [id number] date: 1985 Sex: F Assigned Patient Location: [facility] Current Patient Location: Accession/Order Number: [id number] Exam Date: 12/16/2024 20:39 Report Date: 12/16/2024 [...] 12/16/2024 8:41 PM Dictation Location: [place] [address] Electronically authenticated by: [id number] Y Date: 12/16/2024 20:41 Dictated By: Robert Beltrán D.O. Signed By: 12/16/242042 DD/ 40 TD/TT: Assistant Community Director:ELVERadiology, Radiologist, - 12/16/[address] [address] Ultrasound Report Signed Patient: SANNA RENDON MR#: [id number] : 1985 Acct:[id number] Age/Sex: 39 / F ADM Date: Loc: [facility] 251-[address]: Wilton Herrmann D.O. Ordering Physician: Wilton Herrmann D.O. Date of Service: 12/16/24 Procedure(s): US OB cervical length Accession Number(s): [id number] cc: Wilton Herrmann D.O.; PENELOPE CASAS [place] [address] Patient Name: SANNA RENDON MRN: [id number] date: 1985 Sex: F Assigned Patient Location: [facility] Current Patient Location: Accession/Order Number: [id number] Exam Date: 12/16/2024 20:39 Report Date: 12/16/2024 [...] 12/16/2024 8:41 PM Dictation Location: [place] [address] Electronically authenticated by: [id number] Y Date: 12/16/2024 20:41 Dictated By: Robert Beltrán D.O. Signed By: 12/16/242042 DD/ 40 TD/TT: Assistant Community Director: SHILOH HealthcareRadiology Study observation (narrative)SHILOH HealthcareUS OB CERVICAL LENGTHOrdered By: Radiologist Radiology on 61-56-3341HIOL [facility] Work Phone: all THYROID STIM HORMONEon 51-32-8826OSP Qn1.508 m[IU]/LNOMS HealthcareCLINISYNCNOMS HealthcareUrinalysis macro (dipstick) panel (U)on 00-79-9543Dpnwfxsom, UANegativeNegative - 4(70) +++ mg/dLNOMS Healthcare Blood, [...] HealthcareNOMS Healthcare Urinalysis macro (dipstick) panel (U)on 73-56-5887Pfumheboy, UANegativeNegative - 4(70) +++ mg/dLNOMS HealthcareBlood, UANegativeNegative [...] mg/dLNOMS HealthcareNOMS HealthcareGlucose random or fasting- POCTon 07-23-2025 External Glucose Fasting Or Random (Fbs)94[facility] SystemFisher-Titus Medical Center SystemUrinalysis macro (dipstick) panel (U)on 04-68-7397Zvgtfpbvv, UA NegativeNegative - 4(70) +++ mg/dLNOMS HealthcareBlood, UANegativeNegative - 50 Max/mcLNOMS HealthcareClarity, UAClearNOMS HealthcareColor, UAYellowNOMS HealthcareGlucose, UANegativeNegative - 2000(110) ++++ mg/dLNOMS Healthcare Interpretation and review of laboratory resultsNormalNOMS HealthcareKetones, UA NegativeNegative - 160(16) ++++ mg/dLNOMS HealthcareLeukocytes, UANegative Negative - 500+++ John/mcLNOMS HealthcareNitrite, UANegativeNegative - Positive NOMS HealthcarepH, UA75 - 9NOMS HealthcareProtein, UANegativeNegative - 2000(20) ++++ mg/dLNOVA HealthcareSpec Grav, UA1.011 - 1.03NOMS HealthcareUrobilinogen, UA0.20.2 - 12 mg/dLNOMS HealthcareNOMS Nigaoumqjx09([place])D[address] [facility] 774141-qssjlrrrchtvtd D3 [Mass/Vol]32.1 ng/oNNzimju68.0-80.0[facility] on above:Order Comment: Specimen Type: BLOOD SPECIMENOrdering Facility: [facility] Address:[address] [place], [place] [address]Result Comment: Classification of 25 [place] Vitamin D status: Deficiency/Insufficiency: < or = 30 ng/ml. Sufficiency/Optimal Levels: 31-80 ng/mL Toxicity: > 100 ng/mL. Test performed by chemiluminescent immunoassay.Performed By: #### 1989-3 ####[facility] LABCLIA [id number] [address] OF [facility] W Auto Differential panel (Bld)on 65-47-9941Bxmplcxve (Bld) [#/Vol]0.03 10*3/uLNormal<0.11CUniversity Hospitals [facility] on above:Order Comment: Specimen Type: BLOOD SPECIMENOrdering Facility: [facility] Address:[address] [place], [place] [address]Performed By: #### 30865-6 ####[facility] LABCLIA [id number] [place], [place] [address]Gemnhamxz/100 WBC (Bld)0.3 % NormalOhio Valley Surgical Hospital on above:Order Comment: Specimen Type: BLOOD SPECIMENOrdering Facility: [facility] Address:[address] [place], [place] [address]Performed By: #### 63501-5 ####[facility] LABCLIA [id number] [place] [address] Differential cell count method Nom (Bld)AutoNormalClevelFormerly [facility] Comment on above:Order Comment: Specimen Type: BLOOD SPECIMENOrdering Facility: [facility] Address:[address] [place] [address] Performed By: #### 94359-4 ####[facility] LABCLIA [id number] [place], [place] [address]Pahyggghldn (Bld) [#/Vol]0.05 10*3/uLNormal<0.46[facility] on above:Order Comment: Specimen Type: BLOOD SPECIMENOrdering Facility: [facility] Address:[address] [place], [place] [address]Performed By: #### 02607-2 ####[facility] LABCLIA [id number] [place], [place] [address]Rrhhqfqbeta/100 WBC (Bld)0.5 %NormalOhio Valley Surgical Hospital on above:Order Comment: Specimen Type: BLOOD SPECIMENOrdering Facility: [facility] Address:[address] [place], [place] [address]Performed By: #### 79726-3 ####[facility] LABCLIA [id number] [place], [place] [address]Yxkatgdqhww distribution width (RBC) [Ratio]14.5 %Ytawwi32.5-15.0[facility] on above: Order Comment: Specimen Type: BLOOD SPECIMENOrdering Facility: [facility] Address:[address] [place], [place] [address]Performed By: #### 21975- 8 ####[facility] LABCLIA [id number] [place], [place] [address]Zoqwixjacg (Bld) [Volume fraction]36.9 %Nlvdhx44.0-46.0 [facility] on above:Order Comment: Specimen Type: BLOOD SPECIMENOrdering Facility: [facility] Address:[address] [place], [place] [address]Performed By: #### 98676-2 ####[facility] LABIA [id number] [place], [place] [address]Bvupdlwiux (Bld) [Mass/Vol]13.0 g/iROzwhlz45.5-15.5CUniversity Hospitals Conneaut Medical Center on above: Order Comment: Specimen Type: BLOOD SPECIMENOrdering Facility: [facility] Address:[address] [place], [place] [address]Performed By: #### 27085- 8 ####[facility] LABIA [id number] [place], [place] [address]Icswuyai granulocytes (Bld) [#/Vol]10*3/uLNormal<0.10 [facility] on above:Order Comment: Specimen Type: BLOOD SPECIMENOrdering Facility: [facility] Address:[address] [place], [place] [address]Performed By: #### 13518-5 ####[facility] LABIA [id number] [place], [place] [address]Boftcfxk granulocytes/100 WBC (Bld)0.2 %NormalOhio Valley Surgical Hospital on above: Order Comment: Specimen Type: BLOOD SPECIMENOrdering Facility: [facility] Address:[address] [place], [place] [address]Performed By: #### 95470- 8 ####[facility] LABCLIA [id number] [place], [place] [address]Mvrlfsnxdlg (Bld) [#/Vol]2.50 10*3/uLNormal1.00-4.00 [facility] on above:Order Comment: Specimen Type: BLOOD SPECIMENOrdering Facility: [facility] Address:[address] [place], [place] [address]Performed By: #### 12155-7 ####[facility] LABCLIA [id number] [place], [place] [address]Txxmkcyjcnh/100 WBC (Bld)26.3 %NormalOhio Valley Surgical Hospital on above:Order Comment: Specimen Type: BLOOD SPECIMENOrdering Facility: [facility] Address:[address] [place], [place] [address]Performed By: #### 47774-5 ####[facility] LABCLIA [id number] [place], [place] [address]XQD (RBC) [Entitic mass]30.6 aeTooity40.0-34.0[facility] on above:Order Comment: Specimen Type: BLOOD SPECIMENOrdering Facility: [facility] Address:[address] [place], [place] [address]Performed By: #### 68295-9 ####[facility] LABCLIA [id number] [place], [place] [address]NAEO (RBC) [Mass/Vol]35.2 g/oVCnbhlj97.5-36.0[facility] on above: Order Comment: Specimen Type: BLOOD SPECIMENOrdering Facility: [facility] Address:[address] [place], [place] [address]Performed By: #### 97608- 8 ####[facility] LABIA [id number] [place], [place] [address]WUZ (RBC) [Entitic vol]86.8 hHIisvht88.0-100.0[facility] on above:Order Comment: Specimen Type: BLOOD SPECIMENOrdering Facility: [facility] Address:[address] [place], [place] [address]Performed By: #### 60205-2 ####[facility] LABCLIA [id number] [place], [place] [address]Emhimippr (Bld) [#/Vol]0.44 10*3/uLNormal<0.87[facility] on above:Order Comment: Specimen Type: BLOOD SPECIMENOrdering Facility: [facility] Address:[address] [place], [place] [address]Performed By: #### 24012- 8 ####[facility] LABCLIA [id number] [place], [place] [address]Nndqzctql/100 WBC (Bld)4.6 %NormalOhio Valley Surgical Hospital on above:Order Comment: Specimen Type: BLOOD SPECIMENOrdering Facility: [facility] Address:[address] [place], [place] [address]Performed By: #### 33234-3 ####[facility] LABCLIA [id number] [place], [place] [address]Szziqdujiud (Bld) [#/Vol]6.48 10*3/uLNormal1.45-7.50[facility] on above:Order Comment: Specimen Type: BLOOD SPECIMENOrdering Facility: [facility] Address:[address] [place], [place] [address]Performed By: #### 53322-2 ####[facility] LABCLIA [id number] [place], [place] [address]Ixedvhgorcx/100 WBC (Bld)68.1 %NormalOhio Valley Surgical Hospital on above:Order Comment: Specimen Type: BLOOD SPECIMENOrdering Facility: [facility] Address:[address] [place], [place] [address]Performed By: #### 44410-7 ####[facility] LABCLIA [id number] [place], [place] [address]Hpqoodrho RBC (Bld) [#/Vol] 10*3/uLNormal<0.01[facility] on above:Order Comment: Specimen Type: BLOOD SPECIMENOrdering Facility: [facility] Address:[address] [place], [place] [address]Performed By: #### 64477-6 ####[facility] LABCLIA [id number] [place], [place] [address]Upyynjwsk RBC/100 WBC (Bld) [Ratio]0.0 /100 WBCNormal [facility] on above:Order Comment: Specimen Type: BLOOD SPECIMENOrdering Facility: [facility] Address:[address] [place], [place] [address]Performed By: #### 92395-7 ####[facility] LABIA [id number] [place], [place] [address]Uymuihmk mean volume (Bld) [Entitic vol]9.8 fLNormal9.0-12.7CUniversity Hospitals [facility] on above:Order Comment: Specimen Type: BLOOD SPECIMENOrdering Facility: [facility] Address:[address] [place] [address] Performed By: #### 59340-6 ####[facility] LABCLIA [id number] [place], [place] [address]Jkmjkeqmp (Bld) [#/Vol]327 10*3/eIXfdigz792-559LoeovbxvjOhio Valley Surgical Hospital on above:Order Comment: Specimen Type: BLOOD SPECIMENOrdering Facility: [facility] Address:[address] [place], [place] [address]Performed By: #### 56573-1 ####[facility] LABCLIA [id number] [place], [place] [address]JRN (Bld) [#/Vol]4.25 10*6/uLNormal3.90-5.20[facility] on above:Order Comment: Specimen Type: BLOOD SPECIMENOrdering Facility: [facility] Address:[address] [place] [address]Topmlhjku By: #### 44253-9 ####[facility] LABCLIA [id number] [place], [place] [address]FVO (Bld) [#/Vol]9.52 10*3/uLNormal3.70-11.00[facility] on above: Order Comment: Specimen Type: BLOOD SPECIMENOrdering Facility: [facility] Address:[address] [place] [address]Gsegplxaw By: #### 74598- 8 ####[facility] LABCLIA [id number] [place], [place] [address]RHDJTGxr 09-24-1265PJBIGQCpxzu (SP) Office (HEMASA) JUSTICESANNA ([id number]) 1985 F Date Time Provider Department 10/28/24 2:30 PM KATHERINE NEGRETE HEMASA During your visit today, we recorded the following information about you: Temperature Pulse Respiration Blood pressure 97 degrees 82/minute 16/minute 122/77 Weight Last Period 94.1 kg 10/28/24 Katherine Negrete APRN.MACHINE BOBBIN WINDER 10/29/2024 9:44 PM Signed NAME: Sanna Rendon CLINIC NO.: [id number] DATE OF SERVICE: October 28, 2024 (Penelope) Some elements in this clinic note that [...] later in 2018. These were found in [place], [place]. I don't have access to these [...] a target-like rash shortly before presenting to [facility] in 2015 with headaches and [...] negative. Numbness and vi (more content not included)...NormalSt. Charles Hospital Sisi 32-06-8245GYAINiksgoamq ([facility]) SANNA RENDON ([id number]) 1985 F Date Time Provider Department 10/28/24 KATEHRINE NEGRETE During your visit today, we recorded the following information about you: Roberta Haskins 10/28/2024 2:52 PM Signed Valeri Yeung RN 10/30/2024 8:30 AM Signed Labs resulted. Please advise. MARSHA Barajas Mindy M, PA-C 11/04/2024 8:13 AM Signed Katherine saw this patient last and will be able to advise better of the plan of care. NELI Buck Holly, APRN.MACHINE BOBBIN WINDER 11/05/2024 12:33 PM Signed Spoke with Dr. 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 She denies further questions, needs or concerns [...] 05/28/2024 Encounter Status:Closed by RACHAEL JOHNSON on 11/05/24NoalCSelect Medical Specialty Hospital - ColumbusComprehensive metabolic 2000 panelon 73-67-9294Wxkpexm [Mass/Vol]4.4 g/dLNormal3.9-4.9[facility] ClevelandComment on above:Order Comment: Specimen Type: BLOOD SPECIMENOrdering Facility: [facility] Address:[address] [place], [place] [address]Performed By: #### 67635-7 ####[facility]IT[facility] LABCLIA [id number] [facility] PETER [facility]ONTVALLEY HOSPITALVANESSAM[place]WO[place], [place] [address]BNE [Catalytic activity/Vol]55 U/KTrwqkl88-397KvbovykiqOhio Valley Surgical Hospital on above:Order Comment: Specimen Type: BLOOD SPECIMENOrdering Facility: [facility] Address:[address] [place], [place] [address]Performed By: #### 18263-8 ####[facility] LABCLIA [id number] [place], [place] [address]MVZ [Catalytic activity/Vol]18 U/LNormal7-38[facility] on above:Order Comment: Specimen Type: BLOOD SPECIMENOrdering Facility: [facility] Address:[address] [place], [place] [address]Performed By: #### 70246- 8 ####[facility] LABCLIA [id number] [facility] [place], [place] [address]Fgytk gap [Moles/Vol]12 mmol/LNormal8-15[facility] on above:Order Comment: Specimen Type: BLOOD SPECIMENOrdering Facility: [facility] Address:[address] [place], [place] [address]Performed By: #### 54569-0 ####[facility] LABCLIA [id number] [facility]BE[facility] CHILDREN'[facility] [place], [place] [address]LRF [Catalytic activity/Vol]13 U/RRbgfed40-51ZlflswvmpOhio Valley Surgical Hospital on above:Order Comment: Specimen Type: BLOOD SPECIMENOrdering Facility: [facility] Address:[address] [place], [place] [address]Performed By: #### 29171-8 ####[facility] LABCLIA [id number] [place] [address] Bilirubin [Mass/Vol]0.2 mg/dLNormal0.2-1.3CUniversity Hospitals [facility] on above:Order Comment: Specimen Type: BLOOD SPECIMENOrdering Facility: [facility] Address:[address] [place], [place] [address]Performed By: #### 82432-9 ####[facility] LABCLIA [id number] [facility]ENTERLIBBY CHERRYVALLEY HOSPITALVANESSAMAYWO[place], [place] [address]Ehrwddk [Mass/Vol]9.9 mg/dLNormal8.5-10.2CUniversity Hospitals [facility] on above:Order Comment: Specimen Type: BLOOD SPECIMENOrdering Facility: [facility] Address:[address] [place], [place] [address]Performed By: #### 19671-8 ####[facility] LABCLIA [id number] [facility] CENTERLIBBY [place]ED[place]FI[place], [place] [address]Tkuvxctv [Moles/Vol]99 mmol/GCyhomk26-118QyspbhracOhio Valley Surgical Hospital on above:Order Comment: Specimen Type: BLOOD SPECIMENOrdering Facility: [facility] Address:[address] [place], [place] [address]Performed By: #### 56948- 8 ####[facility] LABCLIA [id number] [place]VAL[place] [address]FL3 [Moles/Vol]22 mmol/GInfxvn55-98WrlcexpqgOhio Valley Surgical Hospital on above:Order Comment: Specimen Type: BLOOD SPECIMENOrdering Facility: [facility] Address:[address] [place], [place] [address]Performed By: #### 55711-1 ####[facility] LABCLIA [id number] [facility] CENTERLIBBY GREENSEVALLEY HOSPITALVANESSAMAY[place], [place] [address]Nrvmoszyng [Mass/Vol]0.60 mg/dL Normal0.58-0.96[facility] on above:Order Comment: Specimen Type: BLOOD SPECIMENOrdering Facility: [facility] Address:[address] [place], [place] [address]Performed By: #### 10464-8 ####[facility] LABCLIA [id number] [place], [place] [address]Vgjjkfhpuh and Glomerular filtration rate.predicted panel (S/P/Bld)117 mL/min/1.73m???Normal>=60[facility] on above:Order Comment: Specimen Type: BLOOD SPECIMENOrdering Facility: [facility] Address:[address] [place], [place] [address]Result Comment: Estimated Glomerular Filtration Rate (eGFR) is [...] not accurately reflect actual GFR.Performed By: #### 98670-3 ####[facility] LABCLIA [id number] [place], [place] [address]Huilkid [Mass/Vol]101 mg/uMArkj00-31RtmcmthgqOhio Valley Surgical Hospital on above:Order Comment: Specimen Type: BLOOD SPECIMENOrdering Facility: [facility] Address:[address] [place], [place] [address]Result Comment: The [place] Diabetes Association (ADA) provides guidance for cutoff [...] Standards of Medical Care in Diabetes 2016, [place] [employer] Association. Diabetes Care. 2016.39(Suppl 1).Performed By: #### 21928-7 ####[facility] LABCLIA [id number] [place], [place] [address]Blmvupfyg [Moles/Vol]3.5 mmol/LLow3.7-5.1CUniversity Hospitals Conneaut [facility] Center on above:Order Comment: Specimen Type: BLOOD SPECIMENOrdering Facility: [facility] Address:[address] [place], [place] [address]Performed By: #### 22718-2 ####[facility] LABCLIA [id number] [place], [place] [address]Ldyxxip [Mass/Vol]7.6 g/dL Normal6.3-8.0[facility] on above:Order Comment: Specimen Type: BLOOD SPECIMENOrdering Facility: [facility] Address:[address] [place], [place] [address]Performed By: #### 04837-1 ####[facility] LABCLIA [id number] [place] [address] Sodium [Moles/Vol]133 mmol/THek687-993XamqgsjoqOhio Valley Surgical Hospital on above:Order Comment: Specimen Type: BLOOD SPECIMENOrdering Facility: [facility] Address:[address] [place], [place] [address]Performed By: #### 29985-3 ####[facility] LABCLIA [id number] [place], [place] [address]Nsue nitrogen [Mass/Vol]7 mg/dLNormal7-21[facility] on above:Order Comment: Specimen Type: BLOOD SPECIMENOrdering Facility: [facility] Address:[address] [place], [place] [address]Performed By: #### 04670-1 ####[facility] LABCLIA [id number] [place], [place] [address]Jlkdedod Nancy-Joseon 45-99-2847Nrgqtvrm [Mass/Vol]99.6 ng/iECxkcnj59.7-205.1CUniversity Hospitals [facility] on above:Order Comment: Specimen Type: BLOOD SPECIMENOrdering Facility: [facility] Address:[address] [place] [place] [address]Performed By: #### 2276-4, 51095-9, 9, 6-3 ####[facility] LABIA [id number] [place] [address] [place] OF AMERICAIron and Iron binding capacity panelon 42-06-8153Nabf [Mass/Vol]72 ug/xLXyjheo34-817HqogambefSt. Charles Hospital Comment on above:Order Comment: Specimen Type: BLOOD SPECIMENOrdering Facility: [facility] Address:[address] [place], [place] [address] Performed By: #### 2276-4, 51496-8, 2131-12, 6-3 ####[facility] LABIA [id number] [address] STATES OF [facility] TOLEDOIron binding capacity [Mass/Vol]399 ug/kPKkhx291-080SeqpwlmkxSt. Charles HospitalComment on above:Order Comment: Specimen Type: BLOOD SPECIMENOrdering Facility: [facility] Address:[address] [place], [place] [id number] By: #### 2276-4, 56833-3, 2131-12, 3015-3 ####[facility] LABIA [id number] [place] [id number] [place] OF AMERICAIron/TIBC [Molar ratio]18.0 % Sgvgnz00.0-57.0St. Charles HospitalComcorewell health [facility] on above:Order Comment: Specimen Type: BLOOD SPECIMENOrdering Facility: [facility] Address:[address] [place], [place] [address]Performed By: #### 2276-4, 81909-8, 9, 6-3 ####[facility] LABIA [id number] [place] [id number] [place] OF AMERICATSHon 10-28-2024 Thyroid Stimulating (3Rd Generation) Hormone/ Tsh1.25[facility] SerPl-aCncon [id number] Qn1.250 m[IU]/LNormal 0.270-4.200[facility] on above:Order Comment: Specimen Type: BLOOD SPECIMENOrdering Facility: [facility] Address:[address] [place], [place] [address] [place] [id number] Comment: If the patient is , TSH reference range varies by gestational period: First Trimester (weeks 9-12): 0.180-2.990 mIU/L Second Trimester: 0.110-3.980 mIU/L Third Trimester: 0.480-4.710 mIU/L Danny Varela et al. A Practical Approach for the Verifications and Determination of Site- and Trimester-Specific Reference Intervals for Thyroid Function tests in . Thyroid, 2019:29:3:412-420.Saeed Pan, et al. 2017 Guidelines of the [place] [employer] for the Diagnosis and Management of Thyroid Disease during and the . Thyroid, 2017:27:3:315-389. Performed By: #### 2276-4, 31838-2, 9, 3016-3 ####[facility] LABCLIA [id number] [place] [id number] [place] OF [facility] TOLEDOVit B12 SerPl-[facility] [facility] 60-96-2994Pvapxyuig (Vitamin B12) [Mass/Vol]483 pg/uTTypgso658-6242LcbtlbvcoUniversity Hospitals Conneaut Medical Center on above: Order Comment: Specimen Type: BLOOD SPECIMENOrdering Facility: [facility] Address:[address] [place], [place] [address]Alex [place] [id number] By: #### 2276- 4, 14934-4, 9, 3016-3 ####[facility] LABCLIA [id number] [place] [id number] [place] STATES OF AMERICACNPNon [id number] (HEMASA) SANNA RENDON ([id number]) 1985 F Date Time Provider Department 10/24/24 [...] Date Reviewed: 08/26/2024 Reviewed by: Katherine Negrete APRN.MACHINE BOBBIN WINDER - Fully Assessed Reason for Visit: Lab Orders [4658] Prescriptions as of 10/24/2024 - enoxaparin (LOVENOX) [...] 05/28/2024 Encounter Status:Closed by KAUR DUNHAM on 10/24/24[facility] OB TRANSVAGINALon 31-14-0272FJ OB TRANSVAGINALEXAM: US OB TRANSVAGINAL HISTORY: Viability, [...] II, MD, PHD at 21-Oct-2024 08:31:21 AM [facility] TeleradiologyNormalNot AvailableComment on above:Order Comment: US OB VIABILITY PLEASE PERFORM TRANSVAGINAL ULTRASOUND IF INDICATED No LMP recorded.ALL CBC WITH AUTO DIFFon 69-48-9533WDNGZRBVR ABSOLUTE XGAX9SGGE HealthcareBasophils/100 WBC (Bld)0.2 %0.2 - 2.0 %NOMS HealthcareEosinophils/100 WBC (Bld)0.4 %Low0.9 - 7.0 %[facility] WestErythrocyte distribution width (RBC) [Ratio]14 %11.0 - 15.0 %NOMPershing Memorial HospitalHematocrit (Bld) [Volume fraction]38.1 % 36.0 - 48.0 %[facility] WestHemoglobin (Bld) [Mass/Vol]13.2 g/dL12.0 - 16.0 g/dL [facility] WestIMMATURE GRANULOCYTES ABS AUTO0.03NOUniversity HospitalImmature granulocytes/100 WBC (Bld)0.3 %0.0 - 0.5 %[facility] WestInterpretation and review of laboratory resultsAbnormalSaint Joseph Hospital WestLYMPHOCYTES ABSOLUTE AUTO2.6 NOMPershing Memorial HospitalLymphocytes/100 WBC (Bld)29.1 %20.5 - 60.0 %[facility] HospitalH (RBC) [Entitic mass]29.9 pg26.7 - 34.0 pgNOHCA Midwest DivisionHC (RBC) [Mass/Vol] 34.6 g/dL29.9 - 35.2 g/dLRanken Jordan Pediatric Specialty HospitalV (RBC) [Entitic vol]86.2 fL81.0 - 99.0 fLSaint Joseph Hospital WestMONOCYTES ABSOLUTE AUTO0.6NOUniversity HospitalMonocytes/100 WBC (Bld)7.2 %1.7 - 12.0 %[facility] WestNEUTROPHILS ABSOLUTE AUTO5.6NOUniversity Hospital Neutrophils/100 WBC (Bld)62.8 %43.0 - 75.0 %[facility] WestPlatelet mean volume (Bld) [Entitic vol]10.1 fL9.5 - 13.5 fLSaint Joseph Hospital WestTBH EO #0NOM[facility] Healthcare TBH SYB335XINMScotland County Memorial Hospital RBC4.42NOScotland County Memorial Hospital WBC8.9NOUniversity Hospital CLINISYNCDrug Screen, Urineon 90-72-3855Cwxhujnxspv/MethamphetamineNegative [facility] SystemBarbituratesNegativeProMedica Health System BenzodiazepinesNegativeProMedica Health SystemCocaine MetaboliteNegative [facility] SystemEcstasyNegativeProMedica Health SystemMethadoneNegative [facility] SystemOpiatesNegativeProMedica Health SystemOxycodoneNegative [facility] SystemPhencyclidineNegativeProMedica Health SystemThc Marijuana, UrineNegativeFisher-[facility]itus Medical Center SystemHBV surface Ag IA Qlon 10-06-2024 Hepatitis B Surface AntigenNegativeFisher-Titus Medical Center SystemHIV 1+2 Ab+HIV1 p24 Ag IA Qlon 04-73-3136KKO 1&2 AB/AGNegativeProMount St. Mary Hospital SystemHemoglobin A1con 00-46-2290OzN8u (Bld) [Mass fraction]5.9 %4.0 - 6.0 %[facility] Health SystemNo Panel Informationon 17-15-5702ILED HealthcareTSHon 00-77-0360Jwkzcap Stimulating (3Rd Generation) Hormone/ Tsh1.131ProMount St. Mary Hospital SystemType and screenon 66-88-2343Lpd/Rh(D)NegativeProMount St. Mary Hospital SystemHCG ( test) Ql (U)on 47-75-2565Mbbqcbrzbsrlfk and review of laboratory resultsAbnormalNOMS Healthcare Preg Test, UrPositiveNegativeNOMS HealthcareNOMS HealthcareUrinalysis macro (dipstick) panel (U)on 98-05-8948Zvalpsaet, UANegativeNegative - 4(70) +++ mg/dL NOMS HealthcareBlood, UANegativeNegative - 50 Max/mcLNOMS HealthcareClarity, UA ClearNOMS HealthcareColor, UAYellowNOMS HealthcareGlucose, UANegativeNegative - 2000(110) ++++ mg/dLNOMS HealthcareInterpretation and review of laboratory resultsNormalNOVA HealthcareKetones, UANegativeNegative - 160(16) ++++ mg/dLNOMS HealthcareLeukocytes, UANegativeNegative - 500+++ John/mcLNOMS HealthcareNitrite, UANegativeNegative - PositiveNOMS HealthcarepH, UA65 - 9NOMS HealthcareProtein, UANegativeNegative - 2000(20) ++++ mg/dLNOMS HealthcareSpec Grav, UA1.0251 - 1.03NOMS HealthcareUrobilinogen, UA0.20.2 - 12 mg/dLNOMS HealthcareNOMS HealthcareUS OB TRANSVAGINALon 85-69-4740[place]dn[place] [address] Ultrasound Report Signed Patient: SANNA RENDON MR#: [id number] : 1985 Acct:[id number] Age/Sex: 38 / F ADM Date: 09/11/24 Loc: US Attending Dr: Wilton Herrmann D.O. Ordering Physician: Wilton Herrmann D.O. Date of Service: 09/11/24 Procedure(s): US OB transvaginal Accession Number(s): [id number] cc: Wilton Herrmann D.O.; PENELOPE CASAS [place] [address] Patient Name: SANNA RENDON MRN: [id number] date: 1985 Sex: F Assigned Patient Location: US Current Patient Location: US Accession/Order Number: [id number] Exam Date: 09/11/2024 11:34 Report Date: 09/11/2024 [...] Montano M.D. 09/11/2024 11:36 AM Dictation Location: [place] [address] Electronically authenticated by: [id number] Y Date: 09/11/2024 11:36 Dictated By: Prudence Montano M.D. Signed By: 09/11/24 1138 DD/ 1136 TD/TT: Assistant Community Director:TBHRadiology, Radiologist, - 09/11/2024 [place] [address] Ultrasound Report Signed Patient: SANNA RENDON MR#: [id number] : 1985 Acct:[id number] Age/Sex: 38 / F ADM Date: 09/11/24 Loc: US Attending Dr: Wilton Herrmann D.O. Ordering Physician: Wilton Herrmann D.O. Date of Service: 09/11/24 Procedure(s): US OB transvaginal Accession Number(s): [id number] cc: Wilton Herrmann D.O.; PENELOPE CASAS [place] [address] Patient Name: SANNA RENDON MRN: [id number] date: 1985 Sex: F Assigned Patient Location: US Current Patient Location: US Accession/Order Number: [id number] Exam Date: 09/11/2024 11:34 Report Date: 09/11/2024 [...] Montano M.D. 09/11/2024 11:36 AM Dictation Location: [facility] Electronically authenticated by: [id number] Y Date: 09/11/2024 11:36 Dictated By: Prudence Montano M.D. Signed By: 09/11/24 1138 DD/ 1136 TD/TT: Assistant Community Director: SHILOH HealthcareRadiology Study observation (narrative)SHILOH HealthcareUS OB TRANSVAGINALOrdered By: Radiologist Radiology on 79-29-7435XFCD Healthcare Work Phone: bhCI Quanton 68-66-6239OHI.beta subunit Uc03192 m[IU]/mLHigh1-3Fisher [facility] Orthopaedic InstituteComment on above:Result Comment: 'F NON < 1 - 3' ' 0.2 - 1 WEEK = 5 TO 50' ' 1 - 2 WEEKS = 50 - 500' ' 2 - 3 WEEKS = 100 - 5000' ' 3 - 4 WEEKS = 500 - 69113' ' 4 - 5 WEEKS = 1000 - 77053' ' 5 - 6 WEEKS = 78720 - 213109' ' 6 - 8 WEEKS = 35317 - 628488' ' 8 - 12 WEEKS = 39808 - 926702'Performed By: #### [id number] #### [facility] [address], [place] [address]Ivewjbwuyh Visit Summaryon 13-49-0880Fopezxttsm Visit Summary Ambulatory Visit Summary JUSTICE, SANNA Jaylan :1985 Visit Date:09/07/2024 Ambulatory Visit Instructions Your Diagnosis Viral URI with cough Cough Your Care Team Attending Physician - Romulo Chiu PA-C Primary Care Physician - Penelope CASAS DO, FAAFP This Is Your Medications List Contact prescribing physician if questions or concerns enoxaparin (Lovenox 40 mg/0.4 mL Injection) ergocalciferol (Vitamin D) fluticasone nasal (Flonase 0.05 mg/inh Holland) levothyroxine (levothyroxine 25 mcg (0.025 mg) Tab) [...] EDT With: Penelope CASAS DO, FAAFP Where: [facility] [address], [place] [address]- Medications What How Much When Instructions Unchanged enoxaparin (Lovenox 40 mg/ 0.4 mL Injection) 40 Milligram Subcutaneous Every 24 hours Contact prescribing physician if questions or concerns Unchanged ergocalciferol (Vitamin D) 2,000 International unit By Mouth Every week Contact prescribing physician if questions or concerns Unchanged fluticasone nasal (Flonase 0.05 mg/ inh Holland) 2 Sprays Nasal Inhalation Every day each [...] you for choosing us for your care. [facility] Medicine Office/Clinic Noteon 36-09-5537Avxtqm Medicine Office/Clinic NoteFatempleton developmental center Medicine Office/Clinic Note Chief Complaint cough, [...] created with voice recognition software. Occasional wrong-word or???zmpnm-t-iuvu??? substitutions may have occurred due to the [...] days ago on Sunday. Has been using cevc-eiq-zodppvy cough drops and Flonase for her allergies. [...] duration. Discussed antibiotics un (more content not included)...[facility] HospitalComment on above:Result Comment: Electronically Signed By: Aram QUINTEROS, Romulo Lynn\.br\Date and Time Signed: 09/07/2509:46 Rosas 18-56-9393HJPFRwjcdjnmo (ROD) ASNNA RENDON ([id number]) 1985 F Date Time Provider Department 09/02/24 RACHAEL JOHNSON During your visit today, we recorded the following information about you: Rachael Johnson, RN 09/02/2024 9:53 AM Signed Pt left [...] Date Reviewed: 08/26/2024 Reviewed by: Katherine Negrete APRN.MACHINE BOBBIN WINDER - Fully Assessed Reason for Visit: Patient [...] 05/28/2024 Encounter Status:Closed by RACHAEL JOHNSON on 09/03/24[facility] Quanton 22-36-2683WTK.beta subunit Qn558 m[IU]/mLHigh1-3FTrinity Health System West CampusComment on above:Result Comment: 'F NON < 1 - 3' ' 0.2 - 1 WEEK = 5 TO 50' ' 1 - 2 WEEKS = 50 - 500' ' 2 - 3 WEEKS = 100 - 5000' ' 3 - 4 WEEKS = 500 - 04182' ' 4 - 5 WEEKS = 1000 - 57124' ' 5 - 6 WEEKS = 55061 - 461498' ' 6 - 8 WEEKS = 59342 - 195799' ' 8 - 12 WEEKS = 48720 - 020130'Performed By: #### [id number] #### [facility] [address], [place] [address]RkXC Quanton 65-03-6841AWZ.beta subunit Qn188 m[IU]/mLHigh1-3 [facility] CenterComment on above:Result Comment: 'F NON < 1 - 3' ' 0.2 - 1 WEEK = 5 TO 50' ' 1 - 2 WEEKS = 50 - 500' ' 2 - 3 WEEKS = 100 - 5000' ' 3 - 4 WEEKS = 500 - 61464' ' 4 - 5 WEEKS = 1000 - 44013' ' 5 - 6 WEEKS = 58262 - 850372' ' 6 - 8 WEEKS = 69959 - 804452' ' 8 - 12 WEEKS = 77709 - 803156'Performed By: #### [id number] #### [facility] [address], [place] [address]HGHIki 67-90-8682MTXTDuhwjhcxs (HEMASA) SANNA RENDON ([id number]) 1985 F Date Time Provider Department 08/26/24 [...] Date Reviewed: 08/26/2024 Reviewed by: Katherine Negrete APRN.MACHINE BOBBIN WINDER - Fully Assessed Reason for Visit: Lab Orders [1688] Primary Visit Diagnosis:Antiphospholipid antibody positive [R76.0] Other Visit Diagnoses: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] Malaise and fatigue [R53.81, R53.83] Vitamin D deficiency [E55.9] Order(s):COMPLETE BLOOD COUNT AND DIFFERENTIAL [SQCBCDIF] Order #: [id number] FUTURE COMPREHENSIVE METABOLIC PANEL [SQCMP] Order #: [id number] FUTURE THYROID STIMULATING HORMONE [SQTSH] Order #: [id number] FUTURE IRON AND TIBC [SQIRON] Order #: [id number] FUTURE FERRITIN [SQFERR] Order #: [id number] FUTURE VITAMIN D 25 HYDROXY [SQVITD] Order #: [id number] FUTURE VITAMIN B12 [SQB12] Order #: [id number] FUTURE Prescriptions as of 08/26/2024 - enoxaparin [...] 05/28/2024 Encounter Status:Closed by KATHERINE NEGRETE on 08/26/24[facility] Quanton 42-64-9010DNL.beta subunit Qn83 m[IU]/mLHigh1-3FTrinity Health System West CampusComment on above:Result Comment: 'F NON < 1 - 3' ' 0.2 - 1 WEEK = 5 TO 50' ' 1 - 2 WEEKS = 50 - 500' ' 2 - 3 WEEKS = 100 - 5000' ' 3 - 4 WEEKS = 500 - 18108' ' 4 - 5 WEEKS = 1000 - 66818' ' 5 - 6 WEEKS = 66988 - 650878' ' 6 - 8 WEEKS = 66437 - 911503' ' 8 - 12 WEEKS = 39932 - 840088'Performed By: #### [id number] #### [facility] [address], [place] [address]MpVH Quanton 36-60-1433QQN.beta subunit Qn22 m[IU]/mLHigh1-3 [facility] CenterComment on above:Result Comment: 'F NON < 1 - 3' ' 0.2 - 1 WEEK = 5 TO 50' ' 1 - 2 WEEKS = 50 - 500' ' 2 - 3 WEEKS = 100 - 5000' ' 3 - 4 WEEKS = 500 - 96593' ' 4 - 5 WEEKS = 1000 - 25605' ' 5 - 6 WEEKS = 82844 - 327683' ' 6 - 8 WEEKS = 27499 - 440338' ' 8 - 12 WEEKS = 82975 - 541219'Performed By: #### [id number] #### [facility] [address], [place] [address]JFHGWHDISLjxuzfl By: SYSTEM SYSTEM on 92-61-3411VAT.beta subunit Qn22 m[IU]/mLHigh1 - 3 mIU/mLRemisol ChemComment on above:Result Comment: 'F NON < 1 - 3' ' 0.2 - 1 WEEK = 5 TO 50' ' 1 - 2 WEEKS = 50 - 500' ' 2 - 3 WEEKS = 100 - 5000' ' 3 - 4 WEEKS = 500 - 52846' ' 4 - 5 WEEKS = 1000 - 80823' ' 5 - 6 WEEKS = 46175 - 986220' ' 6 - 8 WEEKS = 43758 - 680207' ' 8 - 12 WEEKS = 62145 - 089277'TSH Qn1.86 m[IU]/LNormal0.34 - 5.60 mcIU/mLRemisol ChemTSHon 12-40-8966ZUS Qn1.86 m[IU]/LNormal0.34-5.60AlecUPMC Western MarylandComment on above:Performed By: #### [id number] #### [facility] [address], [place] [address]PDD ( test) Ql (U)on 54-40-0985Yreegwwsdfcvbk and review of laboratory resultsNormalSaint Joseph Hospital WestPreg Test, UrNegativeNegative [facility].Interpretation:on 57-95-0050IEF Ab IA QlComment Invalid Interpretation CodeUniversity Hospitals Geneva Medical CenterComment on above:Result Comment: Not infected with HCV unless early or acute infection is suspected (which may be delayed in an immunocompromised individual), or other evidence exists to indicate HCV infection. Performed at: [address] [id number] PhD Jd Garciaformed By: #### [id number] #### [facility] [address] [place] [address]LGS Antibody RFX to Quant PCRon 26-05-5162WIK Ab IA Ql Non-ReactiveInvalid Interpretation CodeNon ReactiveUniversity Hospitals Geneva Medical Center Comment on above:Result Comment: Performed at: [address] [id number] PhD Jd Garciaformed By: #### [id number] #### [facility] [address] [place] [address]UBC Screen 4th Generation wRfxon 63-49-1094ZUB 1+2 Ab+HIV1 p24 Ag IA QlNon-ReactiveInvalid Interpretation CodeNon ReactiveUniversity Hospitals Geneva Medical CenterComment on above:Result Comment: HIV-1/HIV-2 antibodies and HIV-1 p24 antigen were NOT detected. There is no laboratory evidence of HIV infection. HIV Negative Performed at: [address] [id number] PhD Jd Garciaformed By: #### [id number] #### [facility] [address] [place] [address]Ndr Be Agon 63-39-9226PTY e Ag IA QlNegativeInvalid Interpretation CodeNegativeUniversity Hospitals Geneva Medical CenterComment on above:Result Comment: Performed at: [address] [place], [place] [id number] PhD Santoshfleming county hospitaleverton Garciaformed By: #### [id number] #### [facility] [address], [place] [address]Drb Bs Agon 25-15-1976GUD surface Ag IA QlNegativeInvalid Interpretation CodeNegativeFisher [facility] Orthopaedic InstituteComment on above:Result Comment: Performed at: [facility] [address] [place], [place] [id number] PhD Jd Garciaformed By: #### [id number] #### [facility] [address], [place] [address]OQUMXJUKPWzmljch By: SYSTEM SYSTEM on 69-52-1016Dqmekiw [Mass/Vol]5.0 g/dLNormal3.3 - 5.0 gm/dLRemisol ChemAlbumin/Globulin [Mass ratio] 1.6 {ratio}Normal1.1 - 2.2Remisol ChemALP [Catalytic activity/Vol]49 [iU]/d Msplrk13 - 98 Int._Unit/LRemisol ChemALT No additional P-5'-P [Catalytic activity/Vol]18 [iU]/dNormal6 - 46 Int._Unit/LRemisol ChemAnion gap [Moles/Vol] 13 mmol/LNormal6 - 16 mEq/LRemisol ChemAST [Catalytic activity/Vol]15 [iU]/d Normal5 - 43 Int._Unit/LRemisol ChemBilirubin [Mass/Vol]0.4 mg/dLNormal0.0 - 1.1 mg/dLRemisol ChemCalcium [Mass/Vol]10.0 mg/dLNormal8.9 - 11.1 mg/dLRemisol Chem Chloride [Moles/Vol]100 mmol/STdz683 - 111 mmol/LRemisol ChemCO2 [Moles/Vol]25 mmol/KMdjydj55 - 31 mmol/LRemisol ChemCreatinine [Mass/Vol]0.7 mg/dLNormal0.5 - 1.3 mg/dLRemisol QheyyODQ022 mL/min/1.73 o6Qcpoai>=59mL/min/1.73 k7Gdlgspn Chem Globulin (S) [Mass/Vol]3.1 g/dLNormal1.4 - 4.0 gm/dLRemisol ChemGlucose [Mass/Vol]82 mg/wSUvngvf32 - 199 mg/dLRemisol ChemPotassium [Moles/Vol]3.8 mmol/LNormal3.5 - 5.3 mmol/LRemisol ChemProtein [Mass/Vol]8.1 g/dLHigh6.0 - 7.8 gm/dLRemisol ChemSodium [Moles/Vol]134 mmol/FWyn025 - 145 mmol/LRemisol ChemUrea nitrogen [Mass/Vol]7 mg/dLNormal5 - 21 mg/dLRemisol ChemUrea nitrogen/Creatinine [Mass ratio]10 mg/oeCrxlxo65 - 20Remisol ChemCMPon 30-31-7184Halyjaf [Mass/Vol]5.0 g/dLNormal3.3-5.0[facility] Comment on above:Performed By: #### [id number] #### [facility] [address], [place] [address]Pcrjzbi/Globulin (S) [Mass conc ratio]1.2Iexwpf7.1-2.2FTrinity Health System West CampusComment on above:Performed By: #### [id number] #### [facility] [address], [place] [address]SEE [Catalytic activity/Vol]49 Int._Unit/ARhazce59-81KrpdcsUniversity Hospitals Geneva Medical CenterComment on above:Performed By: #### [id number] #### [facility] [address], [place] [address]RBT No additional P-5'-P [Catalytic activity/Vol]18 Int._Unit/L Normal6-46[facility] Medical CenterComment on above:Performed By: #### [id number] #### [facility] [address], [place] [address]Kuqiq gap [Moles/Vol]13 mmol/LNormal6-16[facility] Medical CenterComment on above:Performed By: #### [id number] #### [facility] [address], [place] [address]RSZ [Catalytic activity/Vol]15 Int._Unit/LNormal5-43[facility] CenterComment on above:Performed By: #### [id number] #### [facility] [address], [place] [address]Aovothyfe [Mass/Vol]0.4 mg/dLNormal0.0-1.1FTrinity Health System West CampusComment on above:Performed By: #### [id number] #### [facility] [address], [place] [address]Ezalbqx [Mass/Vol]10.0 mg/dLNormal8.9-11.1FTrinity Health System West CampusComment on above:Performed By: #### [id number] #### [facility] [address], [place] [address]Akkbnfbb [Moles/Vol]100 mmol/YQgu874-441VrxcigUniversity Hospitals Geneva Medical CenterComment on above:Performed By: #### [id number] #### [facility] [address], [place] [address]GV3 [Moles/Vol]25 mmol/VFatoaj57-38CpkwqpUniversity Hospitals Geneva [facility] Center Comment on above:Performed By: #### [id number] #### [facility] [address], [place] [address]Kegnbfddgr [Mass/Vol]0.7 mg/dLNormal0.5-1.3FTrinity Health System West CampusComment on above:Performed By: #### [id number] #### [facility] [address], [place] [address]Bwhxbwkb (S) [Mass/Vol]3.1 g/dLNormal1.4-4.0[facility] Medical CenterComment on above:Performed By: #### [id number] #### [facility] [address], [place] [address]Wretkag [Mass/Vol]82 mg/iLWnicee61-080KfplcfUniversity Hospitals Geneva Medical CenterComment on above:Performed By: #### [id number] #### [facility] [address], [place] [address]Tquiimfik [Moles/Vol]3.8 mmol/LNormal3.5-5.3Fisher [facility] Orthopaedic InstituteComment on above:Performed By: #### [id number] #### [facility] [address], [place] [address]Bbgkbax [Mass/Vol]8.1 g/dLHigh6.0-7.8[facility] Medical CenterComment on above:Performed By: #### [id number] #### [facility] [address], [place] [address]Xkxzsk [Moles/Vol]134 mmol/WRgm289-744XwlyymUniversity Hospitals Geneva Medical CenterComment on above:Performed By: #### [id number] #### [facility] [address], [place] [address]Rexc nitrogen [Mass/Vol]7 mg/dLNormal5-21[facility] CenterComment on above:Performed By: #### [id number] #### [facility] [address], [place] [address]Fsyc nitrogen/Creatinine [Mass ratio]10 No VcnjbXtfqna55-31 [facility] CenterComment on above:Performed By: #### [id number] #### [facility] [address], [place] [address]eOAFzs 82-60-8120tWXF598 mL/min/1.73 m5Dhmsto>=59[facility] Medical CenterComment on above:Performed By: #### [id number] #### [facility] [address], [place] [address]Gsmryy Medicine Office/Clinic Noteon 40-92-6305Ltczko Medicine Office/Clinic NoteFami Medicine Office/Clinic Note HPI [...] RESENDEZ FAAFP, Penelope Tony, CHRIS, PED [address], [place] [address]- Additional Instructions: Patient Education Bradycardia, Adult Problem [...] exam Historical Abdominal pain (more content not included)...[facility] Comment on above:Result Comment: Electronically Signed By: Inez Banegas\.br\Date and Time Signed: 07/08/24 08:54 EDTAmbulatory Visit Summaryon 06-52-5213Wedkkvreyy Visit SummaryAmbulatory Visit Summary SANNA RENDON :1985 [...] mg Tab) fluticasone nasal (Flonase 0.05 mg/inh Holland) levothyroxine (levothyroxine 25 mcg (0.025 mg) Tab) [...] EDT With: Penelope CASAS DO, FAAFP Where: [facility] [address], [facility] [place] [address]- You Need to Schedule the Following Appointments Follow Up with Penelope CASAS DO, FAAFP, CHRIS, PED When: Where: [address], [place] [address]- Medications What How Much When [...] Unchanged fluticasone nasal (Flonase 0.05 mg/ inh Holland) 2 Sprays Nasal Inhalation Every day each [...] you for choosing us for your care. [facility] Quanton 27-33-0717LZK.beta subunit Qn1 m[IU]/mLNormal1-3Fisher [facility] Orthopaedic InstituteComment on above:Result Comment: 'F NON < 1 - 3' ' 0.2 - 1 WEEK = 5 TO 50' ' 1 - 2 WEEKS = 50 - 500' ' 2 - 3 WEEKS = 100 - 5000' ' 3 - 4 WEEKS = 500 - 14762' ' 4 - 5 WEEKS = 1000 - 35584' ' 5 - 6 WEEKS = 59303 - 861413' ' 6 - 8 WEEKS = 09331 - 729136' ' 8 - 12 WEEKS = 29608 - 232176'Performed By: #### [id number] #### [facility] [address] [place], [place] [address]PRNSU 2 Mutationson 33-73-5414PITDQ InterpretationSee Note [facility]angely District HospitalComment on above:Result Comment: Indication for testing: Determine genetic contribution to hyperhomocysteinemia. 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 The [employer] Practice Guidelines indicate [...] a contributing factor to hyperhomocysteinemia. Variants Tested: c.665C>T(p.Noo782Ndg) and c.1286A>C(p.Fgv362Pjl). (legacy names C677T and R4958C, respectively). Clinical Sensitivity: Undefined; hyperhomocysteinemia is caused [...] developed and its performance characteristics determined by [facility]. It has not been cleared or approved by the US Food and Drug Administration. This test was performed in a CLIA certified laboratory and is intended for clinical purposes. Counseling and informed consent are recommended for genetic testing. Consent forms are available online. Performed By: [facility] [address] [place] [address] Tobacco Drying Machine Operator: Yayo Moncada MD, PhD CLIA Number: [id number] Mutation: [id number]gely District HospitalMTHFR Mutation: [id number]ely District Hospital MTHFR PCR SpecimenWhole BloodRangely District HospitalAnti-nuclear Ab (NASEEM) Reflexon 10-40-5243Vdse-Nuclear Ab (NASEEM), IgG by ELISANot detectedNormal None DetHeart of the Rockies Regional Medical CenterComment on above:Result Comment: If suspicion of connective tissue disease is strong and NASEEM EIA is negative, consider testing for NASEEM by IFA ([id number]). No antibodies to Anti-Nuclear Antibodies (NASEEM) detected. The Extractable Nuclear Antigen Antibodies (SALES ACCOUNT LEADER, Christianson, SSA 52, SSA 60, Scleroderma, Brianna-1 [...] dsDNA, histones, SS-A (Ro), SS-B (La), Christianson, Christianson/SALES ACCOUNT LEADER, Scl-70, Brianna-1, centromeric proteins, other antigens extracted from the HEp-2 cell nucleus. NASEEM ALEX assays have been reported to have lower sensitivities than NASEEM IFA for systemic autoimmune rheumatic diseases (SARD). Negative results do not necessarily rule out SARD. Performed By: [facility] [address] [place] [address] Tobacco Drying Machine Operator: Yayo Moncada MD, PhD CLIA Number: [id number] (Histidyl-tRNA Synthetase) Ab, IgGon 59-06-1087Wh-1 (Histidyl-tRNA Synthetase) Ab, IgG0 AU/mLNormal0-40[facility] Comment on above:Result Comment: INTERPRETIVE INFORMATION: Brianna-1 Antibody, IgG 29 AU/mL or less.........Negative 30-40 AU/mL..............Equivocal 41 AU/mL or greater......Positive Presence of Brianna-1 (antihistidyl transfer RNA [t-RNA] synthetase) antibody is associated with polymyositis and may also be seen in patients with dermatomyositis. Brianna-1 antibody is associated with pulmonary involvement (interstitial lung disease), Raynaud phenomenon, arthritis, and trouble shooting mechanic's hands (implicated in antisynthetase syndrome). Performed By: [facility] [address] [place] [address] Tobacco Drying Machine Operator: Yayo Moncada MD, PhD CLIA Number: [id number] and SSB Abs, IgGon 25-36-7260QOI 52 (Ro) (KELLEN) Ab, IgG1 AU/mLNormal0-40[facility] AuroraComment on above:Result Comment: INTERPRETIVE INFORMATION: SSA-52 (Ro52) [...] interstitial lung disease.SSB (La) (KELLEN) Ab, IgG0 AU/mLNormal0-40[facility] Comment on above:Result Comment: INTERPRETIVE INFORMATION: SSB [...] (PSS) also have this antibody. Performed By: [facility] [address] [place] [address] Tobacco Drying Machine Operator: Yayo Moncada MD, PhD CLIA Number: [id number] Antibodies, IgG/IgMon 44-37-3807Rbcvovtvfps Ab IgG95 GPLCritically high<=14[facility] AuroraComment on above: Result Comment: INTERPRETIVE INFORMATION: Anti-Cardiolipin [...] other criteria phospholipid antibody tests. Performed by [facility], [address] [facility],[place] [id number] www.[employer], Zhang Bledsoe MD, Lab. Director CLIA Number: [id number] Ab IgM<10Normal<=12[facility] AuroraComment on above:Result Comment: INTERPRETIVE INFORMATION: Anti- Cardiolipin [...] other criteria phospholipid antibody tests. Performed by [facility], [address] [place] [address] www.[employer], Zhang Bledsoe MD, Lab. Director CLIA Number: [id number] (Smooth Muscle) Antibody, IgAon 34-09-5988E-Actin Ab, IgA1.8 UnitsNormal0.0-24.9[facility] AuroraComment on above: Result Comment: INTERPRETIVE INFORMATION: F-Actin (Smooth Muscle)Antibody, IgA 20.0 Units or less.....Negative 20.1 - 24.9 Units......Equivocal 25.0 Units or greater..Positive The presence of IgA antibodies against F-Actin in patients having positive serologic markers for celiac disease, such as antiendomysial, anti-transglutaminase, and/or anti-gliadin peptide IgA, indicates the presence of intestinal villus atrophy. Positive results should be confirmed with biopsy. Performed By: [facility] [address] [place] [address] Tobacco Drying Machine Operator: Yayo Moncada MD, PhD CLIA Number: [id number] Ab, IgG by ELISAon 33-49-0232dgRTF Ab, IgG by ALEX 4 IUNormal0-24[facility] AuroraComment on above:Result Comment: INTERPRETIVE INFORMATION: Double-Stranded DNA (dsDNA) Ab IgG ALEX 24 IU or less........Negative 25-30 IU.............Borderline Positive 30-60 IU.............Low Positive 60-200 IU............Positive 201 IU or greater....Strong Positive Positivity for anti-double stranded DNA (anti-dsDNA) IgG antibody is a diagnostic criterion of systemic lupus erythematosus (SLE). Specimens are initially screened by enzyme-linked immunosorbent assay (ALEX). If ordered as reflex ([id number]), positive ALEX results (>24 IU) will be [...] recommendations for testing may be found at [email or web address]. Performed by [facility], [address] [place] [address] www.[employer], Zhang Bledsoe MD, Lab. Director CLIA Number: [id number] Proteinon 59-79-8011SWO [Mass/Vol]mg/LNormal 0.0-5.0[facility] Of AuroraComment on above:Performed By: #### CRP #### [facility] [address] [facility] [place] [address] Pddlfilaliuvi Rateon 12-36-5001Qmrasownoztmk Rate18 mmNormal0-20 [facility] AuroraComment on above:Result Comment: ESR Units mm/Hr Performed By: #### ESR #### [facility] [address] [place] [address] Wgamng Medicine Office/Clinic Noteon 66-72-6732Qmuhty Medicine Office/Clinic NoteFatempleton developmental center Medicine Office/Clinic Note Chief Complaint C/O: [...] bedtime), # 90 tab(s), Refills(s) 4, Pharmacy: [facility], 168, cm, 06/30/24 8:36:00 EST, Height/Length Dosing, 97.2, kg, 06/30/24 8:36:00 EST, Weight Dosing Total time spent preparing the chart, conducting of the encounter with the patient and family and time spent documenting, reviewing, and ordering tests was 25 minutes. Follow-up With When Contact Information Penelope CASAS DO, FAAFP, CHRIS, PED In 2 months [address] [facility], [facility] [place] [address] (more content not included)...[facility] Comment on above:Result Comment: Electronically Signed By: Penelope CASAS DO, FAAFP\.br\Date and Time Signed: 06/30/24 09:24 ESTRECURRENT VAGINITIS (HTRX)on 50-61-2260RTOFBEDDU UYQJLIW2CWQR HealthcareATOPOBIUM VAGINAENot detectedNOMS HealthcareBVAB 2,3 (BACTERIAL VAGINOSIS ASSOCIATED BACTERIA 2, 3); MOBILUNCUS [id number] HealthcareBVAB 2,3 (BACTERIAL VAGINOSIS ASSOCIATED BACTERIA 2, 3); MOBILUNCUS SPPNot detectedNOMS HealthcareCANDIDA ALBICANS, PARAPSILOSIS, [id number] HealthcareCANDIDA ALBICANS, PARAPSILOSIS, TROPICALISNot detected NOMS HealthcareCANDIDA [id number] HealthcareCANDIDA GLABRATANot detectedNOMS HealthcareCANDIDA IARLNZ0PXKR HealthcareCANDIDA KRUSEINot detectedNOMS HealthcareCHLAMYDIA BWYKNVXJLEX3WZXT HealthcareCHLAMYDIA TRACHOMATISNot detected NOMS HealthcareGARDNERELLA PMQOVUDMF5XMZY HealthcareGARDNERELLA VAGINALISNot detectedNOMS HealthcareMEGASPHAERA (TYPES 1, 2)0NOMS HealthcareMEGASPHAERA (TYPES 1, 2)Not detectedNOMS HealthcareMYCOPLASMA OGGRGMXQUY6GZQC Healthcare MYCOPLASMA GENITALIUMNot detectedNOMS HealthcareNEISSERIA YGQPQVLWQJC4TBLE HealthcareNEISSERIA GONORRHOEAENot detectedNOMS HealthcareTRICHOMONAS VAGINALIS0 NOMS HealthcareTRICHOMONAS VAGINALISNot detectedNOMS HealthcareNOMS Healthcare Urinalysis macro (dipstick) panel (U)on 47-84-6341Szbymcfbc, UANegativeNegative - 4(70) +++ mg/dLNOMS HealthcareBlood, UANegativeNegative [...] - 12 mg/dLNOMS HealthcareNOMS HealthcareAmbulatory Visit Summaryon 22-20-6912Zprnvylfzg Visit SummaryAmbulatory Visit Summary JUSTICESANNA :1985 Visit Date:06/19/2024 Ambulatory Visit Instructions Your [...] (Vitamin D) fluticasone nasal (Flonase 0.05 mg/inh Holland) levothyroxine (levothyroxine 25 mcg (0.025 mg) Tab) [...] EDT With: Penelope CASAS DO, FAAFP Where: [facility] [address] [facility], [place] [address]- Medications What How Much When Why Instructions New azithromycin (Zithromax 250 mg Tab) 1 Packets By Mouth As Directed Sinusitis Duration: 5 Days Refills: 1 as directed on package labeling Pickup at [facility] 1985 New fluconazole (Diflucan 150 mg Tab) 1 Tablets By Mouth Every 7 days Yeast infection Refills: 1 Pickup at [facility] 1985 Unchanged enoxaparin (Lovenox 40 mg/ 0.4 mL Injection) 40 Milligram Subcutaneous Every 24 hours Contact prescribing physician if questions or concerns Unchanged ergocalciferol (Vitamin D) 2,000 International unit By Mouth Every week Contact prescribing physician if questions or concerns Unchanged fluticasone nasal (Flonase 0.05 mg/ inh Holland) 2 Sprays Nasal Inhalation Every day each [...] physician if questions or concerns Pharmacy Information [facility] 1985: [address], [place] [id number] [phone] Allergies Milk Products (Illness) ciprofloxacin (Numbness and [...] you for choosing us for your care. [facility] Medicine Office/Clinic Noteon 29-55-8513Bzdvmw Medicine Office/Clinic NoteFatempleton developmental center Medicine Office/Clinic Note Chief Complaint Sinus pressure [...] day(s), # 6 tab(s), Refills(s) 1, Pharmacy: [facility], 168, cm, 06/09/24 14:03:00 EST, Height/Length Dosing, 98.4, kg, 06/19/24 16:19:00 EST, Weight Dosing Yeast infection (B37.9: Candidiasis, unspecified) Ordered: fluconazole, 150 mg = 1 tab(s), Oral, q7day, # 4 tab(s), Refills(s) 1, Pharmacy: [facility], 168, cm, 06/09/24 14:03:00 EST, [...] Oral, q7day, 1 refills Flonase 0.05 mg/inh Holland, 2 spray(s), Nasal, Daily, 11 refills levothyroxine [...] Given Patient Refuses influe (more content not included)...NormalUniversity Hospitals Geneva Medical CenterComment on above:Result Comment: Electronically Signed By: MANDI BRYANT\.cedrick\Date and Time Signed: 06/19/24 16:37 ESTCBC w/ Auto Diffon 06-12-2024 Basophils/100 WBC (Bld)0.3 %Normal0.0-2.0[facility] Geneva Medical CenterComment on above:Performed By: #### [id number] #### [facility] [address] [place], [place] [address]Tknuuyugm/Leukocytes Auto (Bld) [Pure # fraction]0.0 E9/LNormal 0.0-0.2FTrinity Health System West CampusComment on above:Performed By: #### [id number] #### [facility] [address], [place] [address]Cwidqqptfkq (Bld) [#/Vol]0.0 E9/LNormal0.0-0.5FTrinity Health System West CampusComment on above:Performed By: #### [id number] #### [facility] [address], [place] [address]Rleudofhmvx/100 WBC (Bld)0.3 %Normal0.0-8.0[facility] Geneva Medical CenterComment on above:Performed By: #### [id number] #### [facility] [address], [place] [address]Wjpwzecundi distribution width (RBC) [Ratio]14.0 %Normal 10.9-14.2FTrinity Health System West CampusComment on above:Performed By: #### [id number] #### [facility] [address], [place] [address]Smhnnzfyta (Bld) [Volume fraction]40.9 %Iqxgtv82.0-46.0[facility] Geneva Medical CenterComment on above:Performed By: #### [id number] #### [facility] [address], [place] [address]Pjdafnahea (Bld) [Mass/Vol]13.9 g/yILshmxt99.0-16.0[facility] Medical CenterComment on above:Performed By: #### [id number] #### [facility] [address] [place] [address]Mpjvmevsoqu (Bld) [#/Vol]2.8 E9/LNormal1.0-4.0[facility] Medical CenterComment on above:Performed By: #### [id number] #### [facility] [address] [place] [address]Cluicbcfhbo/100 WBC (Bld)24.6 %Bngmjw90.0-50.0[facility] Medical CenterComment on above:Performed By: #### [id number] #### [facility] [address] [place] [address]USC (RBC) [Entitic mass]30.7 xuNogrlg58.0-34.0[facility] Medical CenterComment on above:Performed By: #### [id number] #### [facility] [address] [place] [address]RKBH (RBC) [Mass/Vol]33.9 g/yAInrpfq31.4-36.0[facility] Medical CenterComment on above:Performed By: #### [id number] #### [facility] [address] [place] [address]JPL (RBC) [Entitic vol]90.6 gEPwlfgz78.0-100.0[facility] Medical CenterComment on above:Performed By: #### [id number] #### [facility] [address] [place] [address]Ikqgpvaba (Bld) [#/Vol]0.6 E9/LNormal0.2-1.0[facility] Medical CenterComment on above:Performed By: #### [id number] #### [facility] [address] [place] [address]Rqksnwyfibo (Bld) [#/Vol]8.0 E9/LHigh2.0-7.5FTrinity Health System West CampusComment on above:Performed By: #### [id number] #### [facility] [address], [place] [address]Twnskfbupqb/100 WBC (Bld)69.6 %Nsauml48.0-75.0[facility] Medical CenterComment on above:Performed By: #### [id number] #### [facility] [address] [place] [address]Mnozfrvp113.0 E9/WPfxlio945.0-500.0[facility] Comment on above:Performed By: #### [id number] #### [facility] [address] [place] [address]Ixcogyvv mean volume (Bld) [Entitic vol]8.2 fLNormal6.4-10.8 [facility] Medical CenterComment on above:Performed By: #### [id number] #### [facility] [address] [place] [address]KSS (Bld) [#/Vol]4.5 E12/LNormal4.3-5.9[facility] Medical CenterComment on above:Performed By: #### [id number] #### [facility] [address] [place] [address]TQG corrected for nucl RBC Auto (Bld) [#/Vol]11.5 E9/LHigh 4.0-11.0[facility] Medical CenterComment on above:Performed By: #### [id number] #### [facility] [address] [place] [address]YCARHGIBCDSmeprfe By: SYSTEM SYSTEM on 29-01-5413Wardvzopa/100 WBC (Bld)0.3 %Normal0.0 - 2.0 %Remisol HemeBasophils/Leukocytes Auto (Bld) [Pure # fraction]0.0 E9/LNormal0.0 - 0.2 E9/LRemisol HemeEosinophils (Bld) [#/Vol]0.0 E9/LNormal0.0 - 0.5 E9/LRemisol HemeEosinophils/100 WBC (Bld)0.3 %Normal0.0 - 8.0 %Remisol HemeErythrocyte distribution width (RBC) [Ratio]14.0 %Bzqyys83.9 - 14.2 %Remisol HemeHematocrit (Bld) [Volume fraction]40.9 %Fywyky91.0 - 46.0 % Remisol HemeHemoglobin (Bld) [Mass/Vol]13.9 g/jGRmwgll01.0 - 16.0 gm/dLRemisol HemeLymphocytes (Bld) [#/Vol]2.8 E9/LNormal1.0 - 4.0 E9/LRemisol Heme Lymphocytes/100 WBC (Bld)24.6 %Glefic94.0 - 50.0 %Remisol HemeMCH (RBC) [Entitic mass]30.7 tnBixmam01.0 - 34.0 pgRemisol HemeMCHC (RBC) [Mass/Vol]33.9 g/dL Tuzdwz87.4 - 36.0 gm/dLRemisol HemeMCV (RBC) [Entitic vol]90.6 dDEggrdc78.0 - 100.0 fLRemisol HemeMonocytes (Bld) [#/Vol]0.6 E9/LNormal0.2 - 1.0 E9/LRemisol HemeMonocytes/100 WBC (Bld)5.2 %Normal4.0 - 14.0 %Remisol HemeNeutrophils (Bld) [#/Vol]8.0 E9/LHigh2.0 - 7.5 E9/LRemisol HemeNeutrophils/100 WBC (Bld)69.6 % Avmywb15.0 - 75.0 %Remisol UtngWwqduvwq645.0 E9/XCmpalq863.0 - 500.0 E9/LRemisol HemePlatelet mean volume (Bld) [Entitic vol]8.2 fLNormal6.4 - 10.8 fLRemisol HemeRBC (Bld) [#/Vol]4.5 E12/LNormal4.3 - 5.9 E12/LRemisol HemeWBC corrected for nucl RBC Auto (Bld) [#/Vol]11.5 E9/LHigh4.0 - 11.0 E9/LRemisol HemeAmbulatory Visit Summaryon 58-13-1264Dyyfdznzxh Visit SummaryAmbulatory Visit Summary SANNA RENDON :1985 Visit Date:06/09/2024 Ambulatory Visit Instructions Your Diagnosis Antiphospholipid antibody with hypercoagulable state H/O: CVA Gestational diabetes BMI 35.0-35.9,adult Morbid obesity Your Care Team Attending Physician - Penelope CASAS DO, FAAFP Primary Care Physician - Penelope CASAS DO, FAAFP This Is Your Medications List fluticasone nasal (Flonase 0.05 mg/inh Holland) Contact prescribing physician if questions or concerns [...] EDT With: Penelope CASAS DO, FAAFP Where: [facility] [address] [place] [address], [place] [address]- Medications What How Much When Instructions New fluticasone nasal (Flonase 0.05 mg/ inh Holland) 2 Sprays Nasal Inhalation Every day Refills: 11 each nostril Pickup at [facility]/pharmacy #[id number] Unchanged enoxaparin (Lovenox 40 mg/ 0.4 mL [...] physician if questions or concerns Pharmacy Information [facility]/pharmacy #[id number]: [address] [place], [place] [phone] Allergies Milk Products (Illness) ciprofloxacin (Numbness and [...] for your care. NormalFisher [facility] Orthopaedic InstituteBhG Quanton 70-78-0092ZTX.beta subunit Qn2 m[IU]/mLNormal1-3[facility] Orthopaedic InstituteComment on above:Result Comment: 'F NON < 1 - 3' ' 0.2 - 1 WEEK = 5 TO 50' ' 1 - 2 WEEKS = 50 - 500' ' 2 - 3 WEEKS = 100 - 5000' ' 3 - 4 WEEKS = 500 - 79134' ' 4 - 5 WEEKS = 1000 - 01545' ' 5 - 6 WEEKS = 72362 - 448142' ' 6 - 8 WEEKS = 79445 - 364457' ' 8 - 12 WEEKS = 94652 - 965645'Performed By: #### [id number] #### [facility] [address] [place], [place] [address]EKSOYYZTURinesca By: SYSTEM SYSTEM on 03-58-4130XXX Qn1.97 m[IU]/LNormal0.34 - 5.60 mcIU/mLRemisol ChemFatempleton developmental center Medicine Office/Clinic Noteon 79-00-9873Xdvrfm Medicine Office/Clinic NoteFami Medicine Office/Clinic Note Chief [...] from inside ear, not outside Moved from [place] Review of Systems PHQ Score Initial Depression [...] antibody with hypercoagulable state (D68.61: Antiphospholipid syndrome) [facility] Department of hematology/oncology following and treating with Lovenox, please see their consultation 05/28/2024. Treats with Lovenox 40 mg subcu every 24 hours 2. H/O: CVA (Z86.79: Personal history of other diseases of the circulatory system) Please see #1. 3. Gestational diabetes (O24.419: Gestational diabetes mellitus in , unspecified control) TOOL FILER HAND, [facility] following. Metformin XR 500 mg tabs [...] Daily, 16 gram, Refill(s) 11, each nostril, [facility]/pharmacy #[id number], 168, cm, 06/09/24 14:03:00 EST, [...] FAAFP, FAM, PED In 6 months [address], [place] [address]- [phone] (more content not included)...NormalUniversity Hospitals Geneva Medical CenterComment on above:Result Comment: Electronically Signed By: Penelope CASAS DO, FAAFP\.br\Date and Time Signed: 06/09/24 14:24 ESTTSHon 20-65-2644HED Qn1.97 m[IU]/LNormal0.34-5.60[facility] CenterComment on above:Performed By: #### [id number] #### [facility] [address] [place], [place] [address]JnJY Quanton 39-82-7284TJB.beta subunit Qn6 m[IU]/mLHigh1-3 [facility] CenterComment on above:Result Comment: 'F NON < 1 - 3' ' 0.2 - 1 WEEK = 5 TO 50' ' 1 - 2 WEEKS = 50 - 500' ' 2 - 3 WEEKS = 100 - 5000' ' 3 - 4 WEEKS = 500 - 78752' ' 4 - 5 WEEKS = 1000 - 25847' ' 5 - 6 WEEKS = 16669 - 362818' ' 6 - 8 WEEKS = 48388 - 632913' ' 8 - 12 WEEKS = 42107 - 461592'Performed By: #### [id number] #### [facility] [address] [place], [place] [address]([place])D3 [facility] Campuson 54-78-254268301442-ynajclvwexxeye D3 [Mass/Vol] 27.8 ng/mLLow31.0-80.0St. Charles HospitalComment on above:Order Comment: Specimen Type: BLOOD SPECIMENOrdering Facility: [facility] Address:[address] [place], [place] [address]Result Comment: Classification of 25 [place] Vitamin D status: Deficiency/Insufficiency: < or = 30 ng/ml. Sufficiency/Optimal Levels: 31-80 ng/mL Toxicity: > 100 ng/mL. Test performed by chemiluminescent immunoassay.Performed By: #### 1989-3 ####[facility] LABCLIA [id number] [facility] P46NIZHBGHIXAUTUMN VILLE [id number] [facility] W Auto Differential panel (Bld)on 95-67-5385Ifzvupfis (Bld) [#/Vol]0.03 10*3/uLNormal<0.11CUniversity Hospitals Conne[facility] on above:Order Comment: Specimen Type: BLOOD SPECIMENOrdering Facility: [facility] Address:[address] [place], [place] [address]Performed By: #### 94462-6 ####[facility] LABCLIA [id number] [place], [place] [address]Ncfphwxsd/100 WBC (Bld)0.4 % NormalOhio Valley Surgical Hospital on above:Order Comment: Specimen Type: BLOOD SPECIMENOrdering Facility: [facility] Address:[address] [place], [place] [address]Performed By: #### 84824-0 ####[facility] LABCLIA [id number] [place] [address] Differential cell count method Nom (Bld)AutoNormalClevelFormerly [facility] Comment on above:Order Comment: Specimen Type: BLOOD SPECIMENOrdering Facility: [facility] Address:[address] [place] [address] Performed By: #### 93020-0 ####[facility] LABIA [id number] [place], [place] [address]Fezoavgcfin (Bld) [#/Vol]0.08 10*3/uLNormal<0.46[facility] on above:Order Comment: Specimen Type: BLOOD SPECIMENOrdering Facility: [facility] Address:[address] [place], [place] [address]Performed By: #### 96346-3 ####[facility] LABIA [id number] [place], [place] [address]Ccaqtexlodv/100 WBC (Bld)0.9 %NormalOhio Valley Surgical Hospital on above:Order Comment: Specimen Type: BLOOD SPECIMENOrdering Facility: [facility] Address:[address] [place], [place] [address]Performed By: #### 54026-6 ####[facility] LABCLIA [id number] [place], [place] [address]Nkgwgszjfhk distribution width (RBC) [Ratio]13.8 %Njxuug72.5-15.0[facility] on above: Order Comment: Specimen Type: BLOOD SPECIMENOrdering Facility: [facility] Address:[address] [place], [place] [address]Performed By: #### 12350- 8 ####[facility] LABCLIA [id number] [place], [place] [address]Qmgzzbjnfs (Bld) [Volume fraction]34.0 %Low36.0-46.0 [facility] on above:Order Comment: Specimen Type: BLOOD SPECIMENOrdering Facility: [facility] Address:[address] [place], [place] [address]Performed By: #### 90110-7 ####[facility] LABIA [id number] [place], [place] [address]Lcnfozdjcc (Bld) [Mass/Vol]11.5 g/wPSmmafz90.5-15.5CUniversity Hospitals Conne[facility] on above: Order Comment: Specimen Type: BLOOD SPECIMENOrdering Facility: [facility] Address:[address] [place], [place] [address]Performed By: #### 40011- 8 ####[facility] [id number] [place], [place] [address]Vgpztiin granulocytes (Bld) [#/Vol]0.03 10*3/uLNormal <0.10[facility] on above:Order Comment: Specimen Type: BLOOD SPECIMENOrdering Facility: [facility] Address:[address] [place], [place] [address]Performed By: #### 53088-1 ####[facility]ITALK[facility] [id number] [place], [place] [address]Wkggtylg granulocytes/100 WBC (Bld)0.4 %NormalOhio Valley Surgical Hospital on above: Order Comment: Specimen Type: BLOOD SPECIMENOrdering Facility: [facility] Address:[address] [place], [place] [address]Performed By: #### 32513- 8 ####[facility] LABIA [id number] [place], [place] [address]Fiuczpddpmu (Bld) [#/Vol]2.86 10*3/uLNormal1.00-4.00 [facility] ClevelandComment on above:Order Comment: Specimen Type: BLOOD SPECIMENOrdering Facility: [facility] Address:[address] [place], [place] [address]Performed By: #### 56187-7 ####[facility] LABCLIA [id number] [place], [place] [address]Qotiojmwxwn/100 WBC (Bld)33.4 %NormalOhio Valley Surgical Hospital on above:Order Comment: Specimen Type: BLOOD SPECIMENOrdering Facility: [facility] Address:[address] [place], [place] [address]Performed By: #### 39756-3 ####[facility] LABCLIA [id number] [place], [place] [address]MTR (RBC) [Entitic mass]30.8 yzRkgzeo26.0-34.0[facility] on above:Order Comment: Specimen Type: BLOOD SPECIMENOrdering Facility: [facility] Address:[address] [place], [place] [address]Performed By: #### 92238-6 ####[facility] LABCLIA [id number] [place], [place] [address]FFSZ (RBC) [Mass/Vol]33.8 g/vJNauirg41.5-36.0[facility] on above: Order Comment: Specimen Type: BLOOD SPECIMENOrdering Facility: [facility] Address:[address] [place], [place] [address]Performed By: #### 65999- 8 ####[facility] LABCLIA [id number] [place], [place] [address]YMM (RBC) [Entitic vol]91.2 kMXvudla44.0-100.0[facility] on above:Order Comment: Specimen Type: BLOOD SPECIMENOrdering Facility: [facility] Address:[address] [place], [place] [address]Performed By: #### 01800-7 ####[facility] LABCLIA [id number] [place], [place] [address]Uqxjqqbfn (Bld) [#/Vol]0.66 10*3/uLNormal<0.87[facility] on above:Order Comment: Specimen Type: BLOOD SPECIMENOrdering Facility: [facility] Address:[address] [place], [place] [address]Performed By: #### 89184- 8 ####[facility] LABIA [id number] [place], [place] [address]Wrcmustsw/100 WBC (Bld)7.7 %NormalOhio Valley Surgical Hospital on above:Order Comment: Specimen Type: BLOOD SPECIMENOrdering Facility: [facility] Address:[address] [place], [place] [address]Performed By: #### 75555-5 ####[facility] LABIA [id number] [place], [place] [address]Tkhleumqcqw (Bld) [#/Vol]4.90 10*3/uLNormal1.45-7.50[facility] on above:Order Comment: Specimen Type: BLOOD SPECIMENOrdering Facility: [facility] Address:[address] [place], [place] [address]Performed By: #### 68280-9 ####[facility] LABIA [id number] [place], [place] [address]Tqccrgguvof/100 WBC (Bld)57.2 %NormalOhio Valley Surgical Hospital on above:Order Comment: Specimen Type: BLOOD SPECIMENOrdering Facility: [facility] Address:[address] [place], [place] [address]Performed By: #### 48994-8 ####[facility] LAB[facility] [id number] [place], [place] [address]Kyveodcrc RBC (Bld) [#/Vol] 10*3/uLNormal<0.01[facility] on above:Order Comment: Specimen Type: BLOOD SPECIMENOrdering Facility: [facility] Address:[address] [place], [place] [address]Performed By: #### 25443-6 ####[facility] LABCLIA [id number] [place], [place] [address]Egwmmummn RBC/100 WBC (Bld) [Ratio]0.0 /100 WBCNormal [facility] on above:Order Comment: Specimen Type: BLOOD SPECIMENOrdering Facility: [facility] Address:[address] [place], [place] [address]Performed By: #### 43118-2 ####[facility] LABCLIA [id number] [place], [place] [address]Vkcncela mean volume (Bld) [Entitic vol]9.6 fLNormal9.0-12.7CUniversity Hospitals Conneaut Medical Center on above:Order Comment: Specimen Type: BLOOD SPECIMENOrdering Facility: [facility] Address:[address] [place] [address] Performed By: #### 71411-2 ####[facility] LABCLIA [id number] [place], [place] [address]Xnlpbnzek (Bld) [#/Vol]345 10*3/uLPjxoqr124-040NlfrwzvbgOhio Valley Surgical Hospital on above:Order Comment: Specimen Type: BLOOD SPECIMENOrdering Facility: [facility] Address:[address] [place], [place] [address]Performed By: #### 11016-0 ####[facility] LABCLIA [id number] [place], [place] [address]CIJ (Bld) [#/Vol]3.73 10*6/uLLow3.90-5.20[facility] on above:Order Comment: Specimen Type: BLOOD SPECIMENOrdering Facility: [facility] Address:[address] [place], [place] [address]Performed By: #### 78096-8 ####[facility] LABCLIA [id number] [place], [place] [address]CWE (Bld) [#/Vol]8.56 10*3/uL Normal3.70-11.00[facility] on above:Order Comment: Specimen Type: BLOOD SPECIMENOrdering Facility: [facility] Address:[address] [place], [place] [address]Qhzftjssy By: #### 30178-8 ####[facility] LABCLIA [id number] [place], [place] [address]KBOIJWjc 05-94-9490CKLARFPylgj (SP) Office (HEMASA) SANNA RENDON ([id number]) 1985 F Date Time Provider Department 05/28/24 1:00 PM KRISTOFER CALIX During your visit today, we recorded the following information about you: Temperature Pulse Respiration Blood pressure 97.6 degrees 72/minute 16/minute 123/83 Weight Height 98.5 kg 1.677 m Kristofer Calix MD 05/29/2024 9:13 AM Signed NAME: Carola Rendonie CLINIC NO.: [id number] DATE OF SERVICE: May 28, 2024 (Levon) [...] later in 2018. These were found in [place], [place]. I don't have access to these [...] a target-like rash shortly before presenting to [facility] in 2016 with headaches and [...] soon. When she had a stroke in [place], she had symptoms up to a month [...] having trouble losing weight. (more content not included)...NormalSt. Charles HospitalCNPNon 05-28-2024 CNPNTelephone (NCCAP) JUSTICE,KATIE ([id number]) 1985 F Date Time Provider Department 05/28/24 [...] 05/28/2024 Encounter Status:Closed by TAYLOR ESCUDERO on 05/28/24NormalCSouthern [place] Medical Centerprehensive metabolic 2000 panelon 18-04-0054Bnxzkcq [Mass/Vol]4.4 g/dLNormal3.9-4.9CUniversity Hospitals Conneaut Medical Center on above:Order Comment: Specimen Type: BLOOD SPECIMENOrdering Facility: [facility] Address:[address] [place], [place] [address]Performed By: #### 30913-6 ####[facility] LABCLIA [id number] [place], [place] [address]INT [Catalytic activity/Vol]59 U/KWswltl11-850SevrawyozOhio Valley Surgical Hospital on above:Order Comment: Specimen Type: BLOOD SPECIMENOrdering Facility: [facility] Address:[address] [place], [place] [address]Performed By: #### 59342-9 ####[facility] LABCLIA [id number] [place], [place] [address]ECF [Catalytic activity/Vol]12 U/LNormal7-38[facility] on above:Order Comment: Specimen Type: BLOOD SPECIMENOrdering Facility: [facility] Address:[address] [place], [place] [address]Performed By: #### 94219- 8 ####[facility] LABCLIA [id number] [facility] [place], [place] [address]Egwmb gap [Moles/Vol]10 mmol/LNormal8-15[facility] on above:Order Comment: Specimen Type: BLOOD SPECIMENOrdering Facility: [facility] Address:[address] [place], [place] [address]Performed By: #### 28121-8 ####[facility] LABCLIA [id number] [place], [place] [address]MUM [Catalytic activity/Vol]11 U/YGxc18-65IpxeiixtcOhio Valley Surgical Hospital on above:Order Comment: Specimen Type: BLOOD SPECIMENOrdering Facility: [facility] Address:[address] [place], [place] [address]Performed By: #### 60899-3 ####[facility] LABCLIA [id number] [place] [address] Bilirubin [Mass/Vol]0.2 mg/dLNormal0.2-1.3CUniversity Hospitals Conneaut Medical Center on above:Order Comment: Specimen Type: BLOOD SPECIMENOrdering Facility: [facility] Address:[address] [place], [place] [address]Performed By: #### 88671-7 ####[facility] LABCLIA [id number] [place], [place] [address]Ntlnfgy [Mass/Vol]9.7 mg/dLNormal8.5-10.2CUniversity Hospitals Conneaut Medical Center on above:Order Comment: Specimen Type: BLOOD SPECIMENOrdering Facility: [facility] Address:[address] [place], [place] [address]Performed By: #### 86500-8 ####[facility] LABIA [id number] [place], [place] [address]Yvmynsuk [Moles/Vol]99 mmol/GVluvaq38-964AugxbykwhOhio Valley Surgical Hospital on above:Order Comment: Specimen Type: BLOOD SPECIMENOrdering Facility: [facility] Address:[address] [place], [place] [address]Performed By: #### 51113- 8 ####[facility] LABCLIA [id number] [place], [place] [address]RZ8 [Moles/Vol]25 mmol/VRidhvt70-55YsqkarzinOhio Valley Surgical Hospital on above:Order Comment: Specimen Type: BLOOD SPECIMENOrdering Facility: [facility] Address:[address] [place], [place] [address]Performed By: #### 11845-6 ####[facility] LABCLIA [id number] [place], [place] [address]Wepegnbgqk [Mass/Vol]0.71 mg/dL Normal0.58-0.96[facility] on above:Order Comment: Specimen Type: BLOOD SPECIMENOrdering Facility: [facility] Address:[address] [place], [place] [address]Performed By: #### 34279-7 ####[facility] LABCLIA [id number] [place], [place] [address]Jtuzsnmifw and Glomerular filtration rate.predicted panel (S/P/Bld)112 mL/min/1.73m???Normal>=60[facility] on above:Order Comment: Specimen Type: BLOOD SPECIMENOrdering Facility: [facility] Address:[address] [place], [place] [address]Result Comment: Estimated Glomerular Filtration Rate (eGFR) is [...] not accurately reflect actual GFR.Performed By: #### 27972-7 ####[facility] LABCLIA [id number] [place], [place] [address]Btxscmj [Mass/Vol]79 mg/oFCopeyi29-10SlcyyjsnhOhio Valley Surgical Hospital on above:Order Comment: Specimen Type: BLOOD SPECIMENOrdering Facility: [facility] Address:[address] [place], [place] [address]Result Comment: The [place] Diabetes Association (ADA) provides guidance for cutoff [...] Standards of Medical Care in Diabetes 2016, [place] Diabetes Association. Diabetes Care. 2016.39(Suppl 1).Performed By: #### 14884-5 ####[facility] LABCLIA [id number] [place], [place] [address]Zqsezkbqp [Moles/Vol]4.0 mmol/LNormal3.7-5.1CUniversity Hospitals Conneaut [facility] Center on above:Order Comment: Specimen Type: BLOOD SPECIMENOrdering Facility: [facility] Address:[address] [place], [place] [address]Performed By: #### 13751-5 ####[facility] LABCLIA [id number] [place], [place] [address]Bimkuqo [Mass/Vol]7.1 g/dLNormal6.3-8.0[facility] on above:Order Comment: Specimen Type: BLOOD SPECIMENOrdering Facility: [facility] Address:[address] [place], [place] [address]Performed By: #### 72342- 8 ####[facility] LABCLIA [id number] [place], [place] [address]Hauain [Moles/Vol]134 mmol/NCce910-879GkppjhveeOhio Valley Surgical Hospital on above:Order Comment: Specimen Type: BLOOD SPECIMENOrdering Facility: [facility] Address:[address] [place], [place] [address]Performed By: #### 76866-2 ####[facility] LABCLIA [id number] [place], [place] [address]Iyrs nitrogen [Mass/Vol]8 mg/dL Normal7-21[facility] on above:Order Comment: Specimen Type: BLOOD SPECIMENOrdering Facility: [facility] Address:[address] [place], [place] [address]Performed By: #### 21577-7 ####[facility] LABCLIA [id number] [place] [address] Ferritin SerPl-mCncon 40-37-3983Pcoplkju [Mass/Vol]73.8 ng/xOAzbizo48.7-205.1 [facility] on above:Order Comment: Specimen Type: BLOOD SPECIMENOrdering Facility: [facility] Address:[address] [place], [place] [address]Performed By: #### 36288-3, 2276-4, 3016-3 ####[facility] LABIA [id number] [place] [address] [place] OF AMERICAFolate SerPl-mCncon 54-72-4565Sdbfgi [Mass/Vol] ng/mLNormal>4.7CUniversity Hospitals [facility] on above:Order Comment: Specimen Type: BLOOD SPECIMENOrdering Facility: [facility] Address:[address] [place], [place] [address]Result Comment: A result of > 20 ng/mL is not necessarily indicative of a pathologic or treatable condition: it reflects a limitation of the test methodology. Assay reference range: 4.8 to 24.2 ng/mL. Suitable for detection of folate deficiency. Reference: Folate III (Folate III) [package insert V 1.0 Palestinian]. [facility], [place], [place]: February 2015.Performed By: #### 2132-9, 2284-8 ####[facility] LABIA [id number] [place] [address] [place] OF AMERICAIron and Iron binding capacity panelon 05-28-2024 Iron [Mass/Vol]68 ug/zPArvcwb56-526SputqxbmuOhio Valley Surgical Hospital on above: Order Comment: Specimen Type: BLOOD SPECIMENOrdering Facility: [facility] Address:[address] [place], [place] [address]Performed By: #### 88115- 8, 2276-4, 3016-3 ####[facility] LABCLIA [id number] [address] AMERICAIron binding capacity [Mass/Vol]367 ug/iYLhblbl929-661LemwjqzdvOhio Valley Surgical Hospital on above: Order Comment: Specimen Type: BLOOD SPECIMENOrdering Facility: [facility] Address:[address] [place], [place] [address]Performed By: #### 97862- 8, 2276-4, 3016-3 ####[facility] LABIA [id number] [address] STATES OF AMERICAIron/TIBC [Molar ratio]18.5 %Ghlyag72.0-57.0[facility] on above:Order Comment: Specimen Type: BLOOD SPECIMENOrdering Facility: [facility] Address:[address] [place], [place] [address]Performed By: #### 37219- 8, 2276-4, 3016-3 ####[facility] LABIA [id number] [address] OF AMERICATS SerPl-aCncon 34-42-8277RQU Qn2.940 m[IU]/LNormal0.270-4.200[facility] on above:Order Comment: Specimen Type: BLOOD SPECIMENOrdering Facility: [facility] Address:[address] [place], [place] [address]Result Comment: If the patient is , TSH reference range varies by gestational period: First Trimester (weeks 9-12): 0.180-2.990 mIU/L Second Trimester: 0.110-3.980 mIU/L Third Trimester: 0.480-4.710 mIU/L Danny Varela et al. A Practical Approach for the Verifications and Determination of Site- and Trimester-Specific Reference Intervals for Thyroid Function tests in . Thyroid, 2019:29:3:412-420.Saeed Pan, et al. 2017 Guidelines of the [place] Thyroid Association for the Diagnosis and Management of Thyroid Disease during and the . Thyroid, 2017:27:3:315-389. Performed By: #### 15107-4, 2276-4, 3016-3 ####[facility] LABCLIA [id number] [place] [address] [place] AMERICAVit B12 SerPl-mCncon 39-53-6126Ycqbfmhnq (Vitamin B12) [Mass/Vol]487 pg/lFZudzti246-8584Mqahcoris Clinic ClevelandComment on above:Order Comment: Specimen Type: BLOOD SPECIMENOrdering Facility: [facility] Address:[address] [place], [place] [address]Performed By: #### 2132-9, 2284-8 ####[facility] LABIA [id number] [place] [address] [place] AMERICABhCG Quanton 14-04-7509CNZ.beta subunit Qn101 m[IU]/mLHigh1-3FTrinity Health System West CampusComment on above:Result Comment: 'F NON < 1 - 3' ' 0.2 - 1 WEEK = 5 TO 50' ' 1 - 2 WEEKS = 50 - 500' ' 2 - 3 WEEKS = 100 - 5000' ' 3 - 4 WEEKS = 500 - 16617' ' 4 - 5 WEEKS = 1000 - 21179' ' 5 - 6 WEEKS = 52114 - 530017' ' 6 - 8 WEEKS = 33977 - 625177' ' 8 - 12 WEEKS = 92467 - 372815'Performed By: #### 1579884 #### [facility] [address] [place], [place] [address]PXQWHK V LEIDEN MUTATIONon 55-73-0001ZSC FACTOR V LEIDEN MUTATIONComment.[facility] HealthcareComment on above:Result: c.1601G>A (p.Rlw600Tfv) - Not Detected This result is not associated with an increased risk for venous thromboembolism. See Additional Clinical Information and Comments. Additional Clinical Information: Venous thromboembolism is a multifactorial disease influenced by genetic, environmental, and circumstantial risk factors. The c.1601G>A (p. Bbh837Jue) variant in the F5 gene, commonly referred [...] c.*97G>A variant and Factor V Leiden (PMID: 09479138). Additional risk factors include but are not [...] health care providers to discuss results at [phone] (8048). Test Details: Variant Analyzed: c.1601G>A (p. Shq986Grh), referred to as Factor V Leiden Methods/Limitations: [...] developed and its performance characteristics determined by [facility]. It has not been cleared or approved by the Food and Drug Administration. References: Jomar Guzman, Loren BLANDON, Thiago R, Solo WW, Jose JH; ACMG Professional Practice and Guidelines Committee. Addendum: [place] [employer] consensus statement on factor V Leiden mutation testing. Nisha Med. 2020Jul 02. doi: 10.1038/m77033-929-76544-a. PMID: 67389990. Naina POWERS. Factor V Leiden Thrombophilia. 1998September 10 (Updated 2017May 03). In: Emeterio MP, Radha HH, Clayton RA, et al., editors. Cassie(R) (Internet). [place] ([place]): [facility]; 6752-1250. Available from: https://www.ncbi.nlm.nih.gov/books/JOU4968/ Hudson Guzman, Loren BLANDON, Trent X, Margarito B, Jo-Ann EB, Lena P, Rhiannon CS; [employer] Laboratory Milieu Coordinator Committee. Venous thromboembolism laboratory testing (factor V Leiden and factor II c.*97G>A), 2018 update: a technical standard of the [place] [employer] and Genomics (ACMG). Nisha Med. 2018 Mar;20(12):9231-2931. doi: 10.1038/j41083-649-4058-d. Ep2017Feb 01. PMID: 24790270. [facility] REVIEWED BYComment.NOMS HealthcareComment on above:Technical Component performed at [facility] Professional Component performed by: [employer] Rosa Isela Lee, Ph.D., [facility] Director, Molecular Genetics [address] [place] [address] Performed at: [facility] [address] [place], [place] [address] C Software Developer: Kolton Storm [facility], Phone: [phone] CLINISYNCNOMS HealthcareCNPNon 32-09-2326BXKKZlkaufqtc (HEMASA) JUSTICE,KATIE ([id number]) 1985 F Date Time Provider Department 05/14/24 RACHAEL JOHNSON During your visit today, we recorded the following information about you: Rachael Johnson, MARSHA 05/14/2024 10:19 AM Signed Pt called to inform she had a miscarriage, Sunday (05/10/24) Asking if any additional blood work was needed from out standpoint. Pt aware we will be checking her CBC for any signs of anemia and her iron studies for deficiency. 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 request any additional testing, we [...] Date Reviewed: 04/28/2024 Reviewed by: Katherine Negrete APRN.MACHINE BOBBIN WINDER - Fully Assessed Reason for Visit: Patient [...] 08/01/2022 Encounter Status:Closed by RACHAEL JOHNSON on 05/14/24NoOhioHealth [facility]ering[facility] MISCELLANEOUS TESTon 14-01-5110OKRNIRNIEINBL TESTCOMMENT.NOMS HealthcareComment on above:Test Ordered: [id number] , ID Ab Cytomegalovirus (CMV) Ab, IgG [...] 0.9 - 1.1 Positive >1.1 Performed at: [address] [id number] C Software Developer: Dusty Miles PhD, Phone: [phone] Performed at: [address] [id number] C Software Developer: China Ching MD, Phone: [phone] , Infectious Disease Antibody Profile [facility] HealthcareNo Panel Informationon 10-24-2459EOVJMJVVEKAEL HealthcarePROTEIN C-FUNCTIONALon 21-06-9980RFROVWI C-BLIYEZJYZC811 %73 - 180 % NOMS HealthcareComment on above:Performed at: [address] [id number] C Software Developer: China Ching MD, Phone: [phone] PROTEIN S-ANTIGENon 66-34-5760LCJZBNU S, KQVV019 %61 - 136 %[facility] PROTEIN S, TOTAL96 %60 - 150 %NOMS HealthcareComment on above:This test was developed and its performance characteristics determined by [facility]. It has not been cleared or approved by the Food and Drug Administration. [facility] ANTITHROMBIN ACTIVITYon 02-54-9567Tsaxslskcakwly and review of laboratory resultsAbnormalSaint Joseph Hospital WestTB ANTITHROMBIN ORHRGCID811 %Obcaqyji09 - 135 % NOMS HealthcareComment on above:An elevated antithrombin activity is of no known clinical significance. Direct Xa inhibitor anticoagulants such as rivaroxaban, apixaban and edoxaban will lead to spuriously elevated antithrombin activity levels possibly masking a deficiency. Performed at: [address] [id number] C Software Developer: China Ching MD, Phone: [phone] ALL IMMUNOGLOBULIN Koffi 35-06-0827DWR IMMUNOGLOBULIN G, QN913 mg/dL586 - 1602 mg/dLNOMS HealthcareComment on above:Performed at: CB - Lab[address] [id number] C Software Developer: Dusty Miles PhD, Phone: [phone] ALL IMMUNOGLOBULIN Mon 27-13-5737XUR IMMUNOGLOBULIN M, Q177 mg/dL26 - 217 mg/dL [facility] HealthcareComment on above:Performed at: [facility] Lab[address] [id number] C Software Developer: Dusty Miles PhD, Phone: [phone] [facility] HOMOCYSTEINEon 44-70-3980DCIQPUGC(E)INE5.8 umol/L0.0 - 14.5 umol/LNOMS HealthcareNo Panel Informationon 33-05-0086VACIODTJLLPPF HealthcareALL CBC WITH AUTO DIFFon 39-15-5435YXGHFVYCL ABSOLUTE UNZR4GKLMUniversity HospitalBasophils/100 WBC (Bld)0.2 %0.2 - 2.0 %NOMPershing Memorial HospitalEosinophils/100 WBC (Bld)0.7 %Low0.9 - 7.0 % [facility] WestErythrocyte distribution width (RBC) [Ratio]13 %11.0 - 15.0 %NOM HealthcareHematocrit (Bld) [Volume fraction]35.6 %Low36.0 - 48.0 %[facility] Hospital WestHemoglobin (Bld) [Mass/Vol]12.3 g/dL12.0 - 16.0 g/dLSaint Joseph Hospital West IMMATURE GRANULOCYTES ABS AUTO0.04HighNOUniversity HospitalImmature granulocytes/100 WBC (Bld)0.4 %0.0 - 0.5 %[facility] WestInterpretation and review of laboratory resultsAbnormalNOUniversity HospitalLYMPHOCYTES ABSOLUTE AUTO2.5NOMS [facility] Lymphocytes/100 WBC (Bld)26.1 %20.5 - 60.0 %[facility]ty HospitalH (RBC) [Entitic mass]31 pg26.7 - 34.0 pgNOHCA Midwest DivisionHC (RBC) [Mass/Vol]34.6 g/dL29.9 - 35.2 g/dLRanken Jordan Pediatric Specialty HospitalV (RBC) [Entitic vol]89.7 fL81.0 - 99.0 fLNOUniversity Hospital MONOCYTES ABSOLUTE AUTO0.6NOUniversity HospitalMonocytes/100 WBC (Bld)6 %1.7 - 12.0 % NOMS HealthcareNEUTROPHILS ABSOLUTE AUTO6.3NOMS HealthcareNeutrophils/100 WBC (Bld)66.6 %43.0 - 75.0 %NOMS HealthcarePlatelet mean volume (Bld) [Entitic vol] 9.9 fL9.5 - 13.5 fLNOMS HealthcareTBH EO #0.1NOMS HealthcareTBH BUV964EQTF HealthcareTBH RBC3.97LowNOMS HealthcareTBH WBC9.4NOMS HealthcareCLINISYNCNOMS HealthcareCCF APTTon 14-48-3077sITV Coag (Bld) [Time]28.5 sNUniversity of Missouri Children's HospitalLon 05-10-2024L Specimen: [id number] Received: 05/12/24 Status: BALDOMERO [place]atham Num: [id number] Spec Type: Surgical Subm Dr: Wilton Herrmann Tissues: A Placenta - Other than 3rd Trimester (14 WK PLACENTA) Procedures: HE/3, Gross/Micro L4 Age/ Patient Sex Location Account Attending Physician Sanna Rendon 38/F LABELL [id number] Wilton Herrmann SPEC NUM: [id number] RECD: 05/12/24 STATUS: BALDOMERO LUPE NUM: [id number] AMARILYS: 05/10/24- SUBM DR: Wilton Herrmann ENTERED: 05/12/[address] [facility] [address]: Piyush,Lab SPEC TYPE: Surgical DEPT: [facility] ENTERED BY: [id number] RECV BY: [id number] ORDERED: HE/3, Gross/Micro L4 ORDERED: HE/3, Gross/Micro [...] CORD: No umbilical cord is received Specimen: [id number] Received: 05/12/24 Status: BALDOMERO [place] Num: [id number] Spec Type: Surgical Subm Dr: Wilton Herrmann Tissues: A Placenta - Other than 3rd Trimester (14 WK PLACENTA) Procedures: Emeka LANDEROS L4 Patient: Sanna Rendon [id number] (Continued) Specimen: [id number] Received: 05/12/24 (Continued) Dann Description (Continued) Signed (signature on file) Vivi Hill MD 05/13/24 1605 Specimen: [id number] Received: 05/12/24 Status: BALDOMERO [place] Num: [id number] Spec Type: Surgical Subm Dr: Wilton Herrmann Tissues: A Placenta - Other than 3rd Trimester (14 WK PLACENTA) Procedures: Dann LANDEROS/Rah L4 Patient: Sanna Rendon [id number] (Continued) Specimen: [id number] Received: 05/12/24-1206 (Continued) Gross Description (Continued) GENERAL: Trimmed Weight [...] and uniform. Cassettes: A1 Rolled membrane A2-A3 Mud Engineer sections of placenta (3, ss, BS25-17 A) ABBY Haile CPT Codes 47675 Specimen: [id number] Received: 05/12/24-1209 Status: BALDOMERO Latham Num: [id number] Spec Type: Surgical Subm Dr: Wilton Herrmann Tissues: A Placenta - Other than 3rd Trimester (14 WK PLACENTA) Procedures: HE/3, Gross/Micro L4 Patient: Sanna Rendon [id number] (Continued) Signed (signature on file) Vivi Hill MD 05/13/24 [facility] Physician GroupPT FIBRINOGENon 05-10-2024 OSZBHAYUPL925 mg/dL200 - 400 mg/dLSaint Joseph Hospital WestNo Panel Informationon 86-19-1916JOVQKZBPDARUT HealthcareSRMCOH PROTHROMBIN TIME INR W/O COUMon 65-05-4299PV Coag (PPP) [Time]10.3 sNUniversity of Missouri Children's HospitalTB INR0.97[facility] Comment on above:DESIRED INR: 2.0-3.0 CONDITIONS NOT LISTED BELOW 2.5-3.5 FOR PROSTHETIC HEART VALVE REPLACEMENT 2.5-3.5 RECURRENT THROMBOSIS US PELVISon 11-00[place] [address] Ultrasound Report Signed Patient: SANNA RENDON MR#: [id number] : 1985 Acct:[id number] Age/Sex: 38 / F ADM Date: Loc: [facility] Attending Dr: Wilton Herrmann D.O. Ordering Physician: Wilton Herrmann D.O. Date of Service: 05/10/24 Procedure(s): US pelvis Accession Number(s): [id number] cc: Wilton Herrmann D.O.; PENELOPE CASAS [place] [address] Patient Name: SANNA RENDON MRN: [facility]:[id number] date: 1985 Sex: F Assigned Patient Location: [facility] Current Patient Location: [facility] Accession/Order Number: [id number] Exam Date: 05/10/2024 14:36 Report Date: 05/10/2024 [...] Dictated By: Humera Kim M.D. Signed By: 05/10/24 1604 DD/ 1602 TD/TT: Assistant Community Director:TBHRadiology, Radiologist, MD - 05/10/2024 [place] [address] Ultrasound Report Signed Patient: SANNA RENDON MR#: [id number] : 1985 Acct:[id number] Age/Sex: 38 / F ADM Date: Loc: [facility] Attending Dr: Wilton Herrmann D.O. Ordering Physician: Wilton Herrmann D.O. Date of Service: 05/10/24 Procedure(s): US pelvis Accession Number(s): [id number] cc: Wilton Herrmann D.O.; PENELOPE CASAS [address] [address] Patient Name: SANNA RENDON MRN: [id number]:[id number] date: 1985 Sex: F Assigned Patient Location: [facility] Current Patient Location: [facility] Accession/Order Number: [id number] Exam Date: 05/10/2024 14:36 Report Date: 05/10/2024 [...] Dictated By: Humera Kim M.D. Signed By: 05/10/24 1604 DD/ 1602 TD/TT: Assistant Community Director: SHILOH BrowningRadiology Study observation (narrative)SHILOH Ibanez PELVIS Ordered By: Radiologist Radiology on 67-82-6784TLLV [facility] Work Phone: US for pregnancyon 86-74-5988[place] [address] Ultrasound Report Signed Patient: SANNA RENDON MR#: [id number] : 1985 Acct:[id number] Age/Sex: 38 / F ADM Date: Loc: [facility] 258-[address]: Wilton Herrmann D.O. Ordering Physician: Wilton Herrmann D.O. Date of Service: 05/10/24 Procedure(s): US OB limited Accession Number(s): [id number] cc: Wilton Herrmann D.O.; PENELOPE CASAS [address] [id number] Patient Name: SANNA RENDON MRN: [id number] date: 1985 Sex: F Assigned Patient Location: [facility] Current Patient Location: [place] Accession/Order Number: [id number] Exam Date: 05/10/2024 08:30 Report Date: 05/10/2024 [...] M.D. Signed By: 05/10/24928 DD/ 5 TD/TT: Assistant Community Director:MANUELHRadiology, Radiologist, - 05/10/2024 [place] [address] Ultrasound Report Signed Patient: SANNA RENDON MR#: [id number] : 1985 Acct:[id number] Age/Sex: 38 / F ADM Date: Loc: [facility] 258-[address]: Wilton Herrmann D.O. Ordering Physician: Wilton Herrmann D.O. Date of Service: 05/10/24 Procedure(s): US OB limited Accession Number(s): [id number] cc: Wilton Herrmann D.O.; PENELOPE CASAS [place] [phone] Patient Name: SANNA RENDON MRN: [facility]:[id number] date: 1985 Sex: F Assigned Patient Location: [facility] Current Patient Location: Accession/Order Number: [id number] Exam Date: 05/10/2024 08:30 Report Date: 05/10/2024 [...] M.D. Signed By: 05/10/24928 DD/ 5 TD/TT: Assistant Community Director: [facility] WestRadiology Study observation (narrative)[facility] [employer]US for pregnancyOrdered By: Radiologist Radiology on 43-99-8162UCHK [employer] Work Phone: US OB TRANSVAGINALon 34-40-9814KJ OB TRANSVAGINALTITLE OF EXAM: OB Ultrasound: REASON [...] period was 01/29/2024.Urinalysis macro (dipstick) panel (U)on 36-74-8155Qmnkhzymd, UANegativeNegative - 4(70) +++ mg/dLNOMS Healthcare Blood, [...] - 1.03 NOMS HealthcareUrobilinogen, UA0.20.2 - 12 mg/dLNOMS HealthcareNOMS Healthcare BOX TESTon 56-40-4533ISM TEST SENT OUTYNOMS NkufhsdrwySNL9FTNBNXPFA Healthcare AYY264//NOMS HealthcareUNITY BOX CLINISYNCNOVA HealthcareTBH DRUG SCREEN RAPID (URINE)on 39-87-9620ASDISUISIEI SCREEN URINENegativeNEGATIVENOMS HealthcareBARBITURATES SCREEN URINENegative NEGATIVENOMS HealthcareBENZODIAZEPINES [...] TRICYCLIC ANTIDEPRESSANT URINENegativeNEGATIVENOMS HealthcareCLINISYNCNOMS HealthcareUS OB TRANSVAGINALon 73-92-6018[place] [address] Ultrasound Report Signed Patient: Sanna Rendon MR#: [id number] : 1985 Acct:[id number] Age/Sex: 38 / F ADM Date: 04/04/24 Loc: [facility] Attending Dr: Wilton Herrmann D.O. Ordering Physician: Wilton Herrmann D.O. Date of Service: 04/04/24 Procedure(s): US OB transvaginal Accession Number(s): [id number] cc: Wilton Herrmann D.O.; PENELOPE CASAS [place] [address] Patient Name: SANNA RENDON MRN: [id number]:[id number] date: 1985 Sex: F Assigned [facility]: [facility] Current Patient Location: Accession/Order Number: [id number] Exam Date: 04/04/2024 09:43 Report Date: 04/05/2024 [...] M.D. Signed By: 04/05/24441 DD/ 8 TD/TT: Assistant Community Director:TBHRadiology, Radiologist, MD - 04/05/2024 [place] [address] Ultrasound Report Signed Patient: Sanna Rendon MR#: [id number] : 1985 Acct:[id number] Age/Sex: 38 / F ADM Date: 04/04/24 Loc: [facility] Attending Dr: Wilton Herrmann D.O. Ordering Physician: Wilton Herrmann D.O. Date of Service: 04/04/24 Procedure(s): US OB transvaginal Accession Number(s): [id number] cc: Wilton Herrmann D.O.; PENELOPE CASAS [place] [phone] Patient Name: SANNA RENDON MRN: [facility]:[id number] date: 1985 Sex: F Assigned Patient Location: [facility] Current Patient Location: Accession/Order Number: [id number] Exam Date: 04/04/2024 09:43 Report Date: 04/05/2024 [...] Dictated By: Humera Kim M.D. Signed By: 04/05/242 DD/ 0439 TD/TT: Assistant Community Director: [facility] HealthcareRadiology Study observation (narrative)[facility] HealthcareUS OB TRANSVAGINALOrdered By: Radiologist Radiology on 90-80-9149VBQG Healthcare Work Phone: HCG ( test) Ql (U)on 10-43-0203Jbxlljrfjzrnsu and review of laboratory resultsAbnormalNOVA HealthcarePreg Test, UrPositive NegativeNONevada Regional Medical Center HealthcareUrinalysis macro (dipstick) panel (U)on 60-14-5852Petruuygw, UANegativeNegative - 4(70) +++ mg/dLNOMS HealthcareBlood, UANegativeNegative - 50 Mxa/mcLNOVA HealthcareClarity, UAClearNOMS Healthcare Color, UAYellowNOMS HealthcareGlucose, UANegativeNegative - 2000(110) ++++ mg/dL [facility] HealthcareInterpretation and review of laboratory resultsNormalNOVA HealthcareKetones, UANegativeNegative - 160(16) ++++ mg/dLNOVA Healthcare Leukocytes, UANegativeNegative - 500+++ John/mcLNOVA HealthcareNitrite, UA NegativeNegative - PositiveNOMS HealthcarepH, UA5.55 - 9NOMS HealthcareProtein, UANegativeNegative - 2000(20) ++++ mg/dLNOMS HealthcareSpec Grav, UA1.021 - 1.03 NOMS HealthcareUrobilinogen, UA1.00.2 - 12 mg/dLNOVA HealthcareNOVA HealthcareC Urineon 68-12-0348Lhgohmmy identified Cx Nom (U)Microbiology PROCEDURE: Urine Culture [R1] SOURCE: U CleanCatch BODY SITE: COLLECTED DATE/TIME: 03/01/2024 10:30 EDT RECEIVED DATE/TIME: 03/01/2024 13:48 EDT START DATE/TIME: 03/01/2024 13:48 EDT FREE TEXT SOURCE: Wilton HERRMANN DO, DO, Corey R FINAL REPORTS Final Report [] Verified Date/Time: 03/03/2024 08:52 EST 2,000 cfu/ml Mixed skin contaminants Performing Locations R1: This test was performed at: [facility], [address] [place] [address], [phone]- , , WaohjsUlulcfSelect Medical Cleveland Clinic Rehabilitation Hospital, Edwin ShawComment on above:Performed By: #### [id number] #### [facility] [address] [place] [address]OsRG Quanton 19-21-1728CJM.beta subunit Qn747 m[IU]/mLHigh1-3 [facility] CenterComment on above:Result Comment: 'F NON < 1 - 3' ' 0.2 - 1 WEEK = 5 TO 50' ' 1 - 2 WEEKS = 50 - 500' ' 2 - 3 WEEKS = 100 - 5000' ' 3 - 4 WEEKS = 500 - 43846' ' 4 - 5 WEEKS = 1000 - 73932' ' 5 - 6 WEEKS = 29275 - 474423' ' 6 - 8 WEEKS = 68453 - 871291' ' 8 - 12 WEEKS = 13874 - 976181'Performed By: #### [id number] #### [facility] [address] [place] [address] 60288AXHRMDHSHXyapfec By: SYSTEM SYSTEM on 76-40-6262LHO.beta subunit Qn747 m[IU]/mLHigh1 - 3 mIU/mLRemisol ChemComment on above:Result Comment: 'F NON < 1 - 3' ' 0.2 - 1 WEEK = 5 TO 50' ' 1 - 2 WEEKS = 50 - 500' ' 2 - 3 WEEKS = 100 - 5000' ' 3 - 4 WEEKS = 500 - 20798' ' 4 - 5 WEEKS = 1000 - 06516' ' 5 - 6 WEEKS = 79752 - 370056' ' 6 - 8 WEEKS = 55505 - 835790' ' 8 - 12 WEEKS = 02569 - 318414'[facility]inity HealthG Quanton 61-81-8628PJE.beta subunit Qn268 m[IU]/mLHigh1-3FTrinity Health System West CampusComment on above:Result Comment: 'F NON < 1 - 3' ' 0.2 - 1 WEEK = 5 TO 50' ' 1 - 2 WEEKS = 50 - 500' ' 2 - 3 WEEKS = 100 - 5000' ' 3 - 4 WEEKS = 500 - 39187' ' 4 - 5 WEEKS = 1000 - 62640' ' 5 - 6 WEEKS = 38367 - 724393' ' 6 - 8 WEEKS = 12377 - 660285' ' 8 - 12 WEEKS = 78417 - 707414'Performed By: #### [id number] #### [facility] [address] [place], [place] [address]VkXX Quanton 75-45-1680TEZ.beta subunit Qn123 m[IU]/mLHigh1-3 [facility] CenterComment on above:Result Comment: 'F NON < 1 - 3' ' 0.2 - 1 WEEK = 5 TO 50' ' 1 - 2 WEEKS = 50 - 500' ' 2 - 3 WEEKS = 100 - 5000' ' 3 - 4 WEEKS = 500 - 68132' ' 4 - 5 WEEKS = 1000 - 03308' ' 5 - 6 WEEKS = 90500 - 207415' ' 6 - 8 WEEKS = 78383 - 688874' ' 8 - 12 WEEKS = 46007 - 028761'Performed By: #### [id number] #### [facility] [address] [place], [place] [address]JGEAWGNFUNjfzwpe By: SYSTEM SYSTEM on 98-27-7686ZWK.beta subunit Qn123 m[IU]/mLHigh1 - 3 mIU/mLRemisol ChemComment on above:Result Comment: 'F NON < 1 - 3' ' 0.2 - 1 WEEK = 5 TO 50' ' 1 - 2 WEEKS = 50 - 500' ' 2 - 3 WEEKS = 100 - 5000' ' 3 - 4 WEEKS = 500 - 52746' ' 4 - 5 WEEKS = 1000 - 75926' ' 5 - 6 WEEKS = 85471 - 606427' ' 6 - 8 WEEKS = 52345 - 303607' ' 8 - 12 WEEKS = 11957 - 769579'JqyD7ldt 95-77-3310HjR2c (Bld) [Mass fraction]6.0 %High<=5.9[facility] CenterComment on above:Performed By: #### [id number] #### [facility] [address] [place], [place] [address]EVM Screen 4th Generation wRfxon 17-68-1349QRW 1+2 Ab+HIV1 p24 Ag IA QlNon-ReactiveInvalid Interpretation CodeNon ReactiveUniversity Hospitals Geneva Medical CenterComment on above:Result Comment: HIV-1/HIV-2 antibodies and HIV-1 p24 antigen were NOT detected. There is no laboratory evidence of HIV infection. HIV Negative Performed at: [address] [id number] PhD Jd Garciaformed By: #### [id number] #### [facility] [address] [place], [place] [address]EiQI Quanton 28-00-1933DCC.beta subunit Qn52 m[IU]/mLHigh1-3 [facility] CenterComment on above:Result Comment: 'F NON < 1 - 3' ' 0.2 - 1 WEEK = 5 TO 50' ' 1 - 2 WEEKS = 50 - 500' ' 2 - 3 WEEKS = 100 - 5000' ' 3 - 4 WEEKS = 500 - 41926' ' 4 - 5 WEEKS = 1000 - 02863' ' 5 - 6 WEEKS = 32170 - 906775' ' 6 - 8 WEEKS = 69852 - 637225' ' 8 - 12 WEEKS = 53203 - 241424'Performed By: #### [id number] #### [facility] [address] [place], [place] [address]MQVKNFHCRFsumivw By: SYSTEM SYSTEM on 51-56-8613Sfxuywuclcm [Mass/Vol]225 mg/tQRayn692 - 200 mg/dLRemisol ChemCholesterol in HDL [Mass/Vol] [...] 3 - 4 WEEKS = 500 - 30334' ' 4 - 5 WEEKS = 1000 - 02899' ' 5 - 6 WEEKS = 91665 - 320424' ' 6 - 8 WEEKS = 48586 - 984409' ' 8 - 12 WEEKS = 22481 - 391028'Triglyceride [Mass/Vol]212 mg/dLHigh <=149mg/dLRemisol ChemTSH Qn5.68 m[IU]/LHigh0.34 - 5.60 mcIU/mLRemisol Chem CHEMISTRYOrdered By: Chelsey Price on 23-10-9757SnE4m (Bld) [Mass fraction]5.9 %Normal<=5.9%[facility] LfxnUecaEIBqdZ7ysy 08-58-9898HpA6h (Bld) [Mass fraction]5.9 % Normal<=5.9[facility] CenterComment on above:Performed By: #### [id number] #### [facility] [address] [place], [place] [address]Rnwsz Panelon 09-85-3559Tuvuojqnzfg [Mass/Vol]225 mg/dLHigh 120-200[facility] CenterComment on above:Performed By: #### [id number] #### [facility] [address], [place] [address]Pjypayapbys in HDL [Mass/Vol]40 mg/dLInvalid Interpretation CodeUniversity Hospitals Geneva Medical CenterComment on above:Result Comment: '>= 60 LOW RISK' '<= 40 HIGH RISK'Performed By: #### [id number] #### [facility] [address], [place] [address]Auvxphwgvdl in LDL [Mass/Vol]171 mg/dLHigh<=129[facility] CenterComment on above:Performed By: #### [id number] #### [facility] [address], [place] [address]Yzfqjezsxcr in VLDL [Mass/Vol]42 mg/dLHigh7-40[facility] CenterComment on above:Performed By: #### [id number] #### [facility] [address] [place], [place] [address]Vnwbrhhwviqk [Mass/Vol]212 mg/dLHigh<=149[facility] CenterComment on above:Performed By: #### [id number] #### [facility] [address] [place], [place] [address]AOEvp 79-68-6848ZAJ Qn5.68 m[IU]/LHigh0.34-5.60[facility] CenterComment on above:Performed By: #### [id number] #### [facility] [address] [place], [place] [address]Bguxinahxw Visit Summaryon 26-16-0631Ltncasqtjm Visit Summary Ambulatory Visit Summary SANNA RENDON [...] EST With: Penelope CASAS DO, FAAFP Where: [facility] [address] [place] [address]- You Need to Schedule the Following Appointments Follow Up with Penelope CASAS DO, FAAFP, FAM, PED When: In 3 months Where: [address] [place] [address]- You Need to Complete the Following HgbA1c, [...] virus infection Vaginal marlee (more content not included)...[facility] Medicine Office/Clinic Noteon 16-72-0134Ctpzik Medicine Office/Clinic NoteFami Medicine Office/Clinic Note Chief Complaint Patient here [...] 40 mg subcu, continue to follow-up with overnight stocker 5. Gestational diabetes (O24.419: Gestational diabetes mellitus in , unspecified control) Metformin 500 mg daily XR tabs 2/day per TOOL FILER HAND Ordered: HgbA1c HgbA1c HgbA1c HgbA1c 6. Well [...] 30 minutes. Follow-up With When Contact Information KAPLE Penelope RESENDEZ FAAFP, FAM, PED In 3 months [address], [place] [address]- Additional Instructions: Patient Education Acute Bronchitis, Adult Problem List/Past Medical History Ongoing Acute (more content not included)...[facility] HospitalComment on above:Result Comment: Electronically Signed By: Penelope [...] Community acquired pneumonia [facility]: [facility] New azithromycin (azithromycin 250 mg Tab 5-day Dose Pack (Z-Jonny)) 1 Packets By Mouth As Directed Community acquired pneumonia Duration: 5 Days as directed on package labeling [facility] Unchanged enoxaparin (Lovenox 40 mg/ 0.4 [...] physician if questions or concerns Pharmacy Information [facility]: [address] [place], [place] [id number] [phone] Allergies Milk Products (Illness) ciprofloxacin (Numbness and [...] you for choosing us for your care. [facility] Medicine Office/Clinic Noteon 34-64-2084Dtddac Medicine Office/Clinic NoteFatempleton developmental center Medicine Office/Clinic Note Chief Complaint SOB [...] a 38 Years White Female presenting to [facility] with body aches and productive [...] puff(s), Inhalation, q6hr, 1 EA, Refill(s) 5, [facility], 168, cm, 02/01/2414:43:00 EDT, Height/Length Dosing, 101.1, kg, 02/02/24 14:43:00 EDT, Weight Dosing azithromycin, = 1 packet(s), Oral, As Directed, as directed on package labeling, X 5 day(s), # 6 tab(s), Refills(s) 0, Pharmacy: [facility] 1985, 168, cm, 02/02/24 [...] Bernstein MD, FAM, MED Only if needed [address] [place] [phone]- [phone] Additional Instructions: Problem List/Past Medical History Ongoing [...] Vitamin D, 2000 International_Unit (more content not included)...[facility] HospitalComment on above:Result Comment: Electronically Signed By: Anni Bernstein MD\.br\Date and Time Signed: 02/01/2415:03 EDTMRI Brain w/o Contraston 66-65-8881KDP Brain w/o ContrastExam Date/Time: 12/06/2023 14:48 EDT [...] Signed by: Pablo Barker MD Transcribed by: DP Technologist: DanayUniversity Hospitals Geneva Medical CenterCortisolon 86-50-6391Vvzvitvr [Mass/Vol]12.5 microgram/dLInvalid Interpretation Code 6.2-19.4FTrinity Health System West CampusComment on above:Result Comment: Please Note: The reference interval and flagging for this test is for an AM collection. If this is a PM collection please use: Cortisol PM: 2.3-11.9 Performed at: [facility] [address] [place] [id number] PhD Jd Garciaformed By: #### [id number] #### [facility] [address] [place] [address]M3 Freeon 01-65-3518Owtw T3 [Mass/Vol]2.5 pg/mLInvalid Interpretation Code2.0-4.4FTrinity Health System West CampusComment on above:Result Comment: Performed at: [facility] [address] [place] [address] [id number] PhD Jd Garciaformed By: #### [id number] #### [facility] [address] [place] [address]Ajyqeitmd 86-25-1996Zzhhzhn [Catalytic activity/Vol]38 U/L Ejmgip86-081ShqsiwUniversity Hospitals Geneva Medical CenterComment on above:Performed By: #### [id number] #### [facility] [address] [place], [place] [address]SIJUKHKJJYrumfcs By: SYSTEM SYSTEM on 33-66-0139Swpymnj [Catalytic activity/Vol]38 U/ZUwedlk99 - 157 unit/LRemisol ChemCobalamin (Vitamin B12) [Mass/Vol]328 pg/xKUrfxth47 - 1500 pg/mLRemisol ChemCRP [Mass/Vol] 0.2 mg/dLNormal<=1.9mg/dLRemisol ChemFree T4 [Mass/Vol]0.58 ng/dLNormal0.58 - 1.64 ng/dLRemisol ChemTSH Qn4.97 m[IU]/LNormal0.34 - 5.60 mcIU/mLRemisol ChemCRP on 83-27-0278JNU [Mass/Vol]0.2 mg/dLNormal<=1.9[facility] Comment on above:Performed By: #### [id number] #### [facility] [address] [place], [place] [address]Npqh T4on 09-89-4325Lcej T4 [Mass/Vol]0.58 ng/dLNormal0.58-1.64 [facility] CenterComment on above:Performed By: #### [id number] #### [facility] [address] [place], [place] [address]DETOWCMLAABtonivn By: Isha Zheng on 80-50-1450FAC (Bld) [Velocity]18 mm/hNormal0 - 34 mm/FT HemeAutoSSSed Rate Automatedon 96-49-5858ABC (Bld) [Velocity]18 mm/hNormal0-34[facility] Comment on above:Performed By: #### [id number] #### [facility] [address] [place], [place] [address]FLDdi 02-94-0628IGL Qn4.97 m[IU]/LNormal0.34-5.60[facility] CenterComment on above:Performed By: #### [id number] #### [facility] [address] [place], [place] [address]Gla B12on 30-60-4375Dtbymtxur (Vitamin B12) [Mass/Vol]328 pg/mL Rtlxyd72-0875JsskrgUniversity Hospitals Geneva Medical CenterComment on above:Performed By: #### [id number] #### [facility] [address] [place], [place] [address]Nobwnr Medicine Office/Clinic Noteon 37-40-1290Dukvmz Medicine Office/Clinic NoteFatempleton developmental center Medicine Office/Clinic Note Chief Complaint Right ear [...] Iron deficiency) Mild, as reported by her overnight stocker, labs from 2022 appear normal 6. Pre-diabetes (R73.03: Prediabetes) Last A1c Continue metformin Nutrition: - Maintain optimal weight - Calorie restriction - Plant-based diet; high polyunsatur (more content not included)...[facility] HospitalComment on above:Result Comment: Electronically Signed By: Monica Keyes\Date and Time Signed: 11/09/23 15:56 EDTPhysician Referralon 74-20-5899Jatipsgov Referral [id number]#1.00[facility] CenterAmbulatory Visit Summaryon 36-84-4015Ddecvqyphm Visit Summary SANNA RENDON :1985 Visit Date:10/23/2023 [...] (Vitamin D) fluticasone nasal (Flonase 0.05 mg/inh Holland) metformin (MetFORMIN (Eqv-Glucophage XR) 500 mg oral [...] EDT With: Penelope CASAS DO, FAAFP Where: [facility] Family Medicine Office/Clinic Noteon 95-93-5217Kullbr Medicine Office/Clinic NoteChief Complaint pt here for [...] Mouth: mucous membranes pink, moist and intact. Ralls posterior oropharynx, no palatal inflammation,uvula midline, no [...] kg, 10/23/23 16:55:00 EDT, Weight Dosing [facility]ulatory Referral 2. Nasal polyps (J33.9: Nasal polyp, unspecified) pt reported - moved before previous ENT could perform surgery - submitted new referral at this time Ordered: [facility] Referral 3. Deviated septum (J34.2: Deviated nasal septum) pt reported - moved before previous ENT could perform surgery - see #2 Ordered: [facility] [place] Referral 4. BMI 37.0-37.9, adult [...] for 7 day(s), 7.5 mL, Refill(s) 0, [facility]/pharmacy #[id number], 168, cm, 10/23/23 16:55:00 EDT, Height/Length Dosing, 106.2, kg, 10/23/23 16:55:00 EDT, Weight Dosing 5. Obesity ( (more content not included)...[facility] Comment on above:Result Comment: Electronically Signed By: Shirlene YEBOAH, Lourdes Baltazar\.br\Date and Time Signed: 10/23/23 17:13 EDTPatient Educationon 34-05-1502Raujyke EducationENT Deviated Septum The septum is the [...] specializes in ear, nose, and throat disorders (tumor registrar, or ENT) for more tests and treatment. [...] Follow these instructions at home: ? Take lanp-xrp-qfawkpv and prescription medicines only as told by [...] specializes in ear, nose, and throat disorders (tumor registrar, or ENT) for more tests and treatment. This information is not intended to replace advice given to you by your health care provider. Make sure you discuss any questions you have with your health care provider. Document Revised: 12/12/2021 Document Reviewed: 12/12/2021 [employer] Patient Education ? 2022 [employer] Nasal Polyps Nasal polyps are growths that form in the nose. Inflammation in the nose or sinus openings can leadto changes in the tissue (mucosa) that lines these areas. Long-term inflammation causes the mucosa to grow into a polyp filled with watery mucus. Nasal polyps look like moist, ochoa grapes in the nose. Nasal polyps are not cancer (more content not included)...[facility] Abdomen/Pelvis w/o Contraston 69-49-7558JC Abdomen/Pelvis w/o Contrast Exam Date/Time: 09/28/2023 19:58 [...] Given? No Oral contrast amount in ml's: 0NoSelect Medical Cleveland Clinic Rehabilitation Hospital, Edwin ShawB hCG Qualon 45-29-3163Rdau HCG ( test) QlNegativeClermont County Hospital Comment on above:Performed By: #### [id number] #### [facility] [address], [place] [address]GFXky 18-66-6915Mmyoh gap [Moles/Vol]13 mmol/LNormal6-16[facility] Medical CenterComment on above:Performed By: #### [id number] #### [facility] [address], [place] [address]Zygtznm [Mass/Vol]9.9 mg/dLNormal8.9-11.1FTrinity Health System West CampusComment on above:Performed By: #### [id number] #### [facility] [address], [place] [address]Pphquahs [Moles/Vol]101 mmol/NTybiuu472-955FolapiUniversity Hospitals Geneva Medical CenterComment on above:Performed By: #### [id number] #### [facility] [address], [place] [address]QB1 [Moles/Vol]25 mmol/TNsbldh24-75PsvypoUniversity Hospitals [facility] Comment on above:Performed By: #### [id number] #### [facility] [address], [place] [address]Udadpxulah [Mass/Vol]0.9 mg/dLNormal0.5-1.3FTrinity Health System West CampusComment on above:Performed By: #### [id number] #### [facility] Laboratory [address] [place] [address]Aqknaov [Mass/Vol]94 mg/pCCgiuji84-700UfdbyoUniversity Hospitals Geneva Medical CenterComment on above:Performed By: #### [id number] #### [facility] [address] [place] [address] 238[address]Vzmqsufkn [Moles/Vol]3.6 mmol/LNormal3.5-5.3FTrinity Health System West CampusComment on above:Performed By: #### [id number] #### [facility] [address] [place] [address] 67565Dviqni [Moles/Vol]135 mmol/JVfroqo522-358FqxouhUniversity Hospitals Geneva Medical CenterComment on above:Performed By: #### [id number] #### [facility] [address] [place] [address] 88872Bnaf nitrogen [Mass/Vol]8 mg/dLNormal5-21[facility] CenterComment on above:Performed By: #### [id number] #### [facility] [address] [place] [address] 64346Nbyb nitrogen/Creatinine [Mass ratio]9 No DdzxiUwa03-56ZwtdsyUniversity Hospitals Geneva Medical CenterComment on above:Performed By: #### [id number] #### [facility] [address] [place] [address] 17381DVU w/ Auto Diffon 19-13-4930Eqttycptr/100 WBC (Bld)0.7 %Normal 0.0-2.0[facility] CenterComment on above:Performed By: #### [id number] #### [facility] [address] [place] [address] 12263Xkpncqpsc/Leukocytes Auto (Bld) [Pure # fraction]0.1 E9/LNormal 0.0-0.2FTrinity Health System West CampusComment on above:Performed By: #### [id number] #### [facility] [address] [place] [address]13[address]Mrmsteobvsy (Bld) [#/Vol]0.0 E9/LNormal0.0-0.5FTrinity Health System West CampusComment on above:Performed By: #### [id number] #### [facility] [address] [place] [address] 78055Dbklsopvxil/100 WBC (Bld)0.5 %Normal0.0-8.0[facility] CenterComment on above:Performed By: #### [id number] #### [facility] [address] [place] [address] 03157Gdqngmksyjm distribution width (RBC) [Ratio]14.3 %High10.9-14.2 [facility] CenterComment on above:Performed By: #### [id number] #### [facility] [address] [place] [address] 44826Kdwpmrwpct (Bld) [Volume fraction]39.5 %Ihzcju75.0-46.0[facility] CenterComment on above:Performed By: #### [id number] #### [facility] [address] [place] [address] 91260Rydsdrdyaf (Bld) [Mass/Vol]13.2 g/hZQfiklz78.0-16.0[facility] CenterComment on above:Performed By: #### [id number] #### [facility] [address] [place] [address] 66676Berghalbuyr (Bld) [#/Vol]3.5 E9/LNormal1.0-4.0[facility] CenterComment on above:Performed By: #### [id number] #### [facility] [address] [place] [address] 68701Jzeyskqnzvv/100 WBC (Bld)35.6 %Vgkgcp91.0-50.0[facility] CenterComment on above:Performed By: #### [id number] #### [facility] [address], [place] [address]KCN (RBC) [Entitic mass]29.3 keFyrsvq24.0-34.0[facility] CenterComment on above:Performed By: #### [id number] #### [facility] [address] [place] [address] 04958CUCO (RBC) [Mass/Vol]33.5 g/jMJrhbsx49.4-36.0[facility] CenterComment on above:Performed By: #### [id number] #### [facility] Laboratory [address] [place] [address] 88635DGF (RBC) [Entitic vol]87.4 wVDblgwn92.0-100.0[facility] CenterComment on above:Performed By: #### [id number] #### [facility] [address] [place] [address] 35427Xcovpspna (Bld) [#/Vol]0.7 E9/LNormal0.2-1.0[facility] CenterComment on above:Performed By: #### [id number] #### [facility] [address] [place] [address] 19549Rampnywpeue (Bld) [#/Vol]5.6 E9/LNormal2.0-7.5FTrinity Health System West CampusComment on above:Performed By: #### [id number] #### [facility] [address] [place] [address] 13349Iuljqvddhji/100 WBC (Bld)56.4 %Ibuayz15.0-75.0[facility] CenterComment on above:Performed By: #### [id number] #### [facility] [address] [place] [address] 24435Uvekthaa mean volume (Bld) [Entitic vol]8.1 fLNormal6.4-10.8 [facility] CenterComment on above:Performed By: #### [id number] #### [facility] [address] [place] [address] 11483Pmwijhgmr (Bld) [#/Vol]360.0 E9/RWfvzuw203.0-500.0[facility] CenterComment on above:Performed By: #### [id number] #### [place] [facility] Laboratory [address], [place] [address]DNF (Bld) [#/Vol]4.5 E12/LNormal4.3-5.9[facility] CenterComment on above:Performed By: #### [id number] #### [place] [facility] Laboratory [address], [place] [address]XUU corrected for nucl RBC Auto (Bld) [#/Vol]9.9 E9/LNormal 4.0-11.0[facility] CenterComment on above:Performed By: #### [id number] #### [place] [facility] Laboratory [address], [place] [address]UADRGJKTFTtkxwjr By: SYSTEM SYSTEM on 82-47-3458Zpukuyg [Mass/Vol]4.8 g/dLNormal3.3 - 5.0 gm/dLRemisol ChemAlbumin/Globulin [Mass ratio] 1.6 {ratio}Normal1.1 - 2.2Remisol ChemALP [Catalytic activity/Vol]66 [iU]/d Kxazbf07 - 98 Int._Unit/LRemisol ChemALT No additional P-5'-P [Catalytic activity/Vol]16 [iU]/dNormal6 - 46 Int._Unit/LRemisol ChemAnion gap [Moles/Vol] 13 mmol/LNormal6 - 16 mEq/LRemisol ChemAST [Catalytic activity/Vol]15 [iU]/d Normal5 - 43 Int._Unit/LRemisol ChemBilirubin [Mass/Vol]0.3 mg/dLNormal0.0 - 1.1 mg/dLRemisol ChemBilirubin.direct [Mass/Vol]0.0 mg/dLNormal0.0 - 0.4 mg/dL Remisol ChemBilirubin.indirect [Mass or moles/Vol]0.3 mg/dLNormal0.1 - 0.9 mg/dL Remisol ChemCalcium [Mass/Vol]9.9 mg/dLNormal8.9 - 11.1 mg/dLRemisol Chem Chloride [Moles/Vol]101 mmol/HEbkoax957 - 111 mmol/LRemisol ChemCO2 [Moles/Vol] 25 mmol/LHqmktx20 - 31 mmol/LRemisol ChemCreatinine [Mass/Vol]0.9 mg/dLNormal0.5 - 1.3 mg/dLRemisol VohvmOKL57 mL/min/1.73 k7Wpywgp>=59mL/min/1.73 i3Qdjzjhr ChemGlobulin (S) [Mass/Vol]3.0 g/dLNormal1.4 - 4.0 gm/dLRemisol ChemGlucose [Mass/Vol]94 mg/hBXskndt30 - 199 mg/dLRemisol ChemLipase [Catalytic activity/Vol]26 U/RNfxhgy21 - 58 unit/LRemisol ChemPotassium [Moles/Vol]3.6 mmol/LNormal3.5 - 5.3 mmol/LRemisol ChemProtein [Mass/Vol]7.8 g/dLNormal6.0 - 7.8 gm/dLRemisol ChemSodium [Moles/Vol]135 mmol/YKqshbk896 - 145 mmol/LRemisol ChemUrea nitrogen [Mass/Vol]8 mg/dLNormal5 - 21 mg/dLRemisol ChemUrea nitrogen/Creatinine [Mass ratio]9 mg/mgLow10 - 20Remisol ChemConsent for Treatmenton 40-23-8633Mpaqkzk for Treatment [id number]#1.00TIFFostoria City HospitalDischarge Instructionson 76-19-4752Nbzdjpqvv Instructions [id number]#1.00TIFBethesda North Hospital Clinical Summaryon 34-73-6676EG Clinical Summary [address] [address] ED Clinical Summary Person Information Name: SANNA RENDON Lita/[facility] Age: 37 Years : 1985 Sex: Female Language: Palestinian PCP: Penelope CASAS DO, FAAFP Marital Status: Phone: [phone] Visit Id: Visit Reason: Medical problem - [...] 09/28/2023 21:22:15 09/28/2023 21:22:15 09/28/2023 21:22:15 ADDRESS: [address] [place] [phone] PHYS DOC NOTES: MEDICAL INFORMATION: Prescriptions Given: Medications to Continue with No Changes Other Medications enoxaparin (Lovenox 40 mg/0.4 mL Injection) 40 Milligram Subcutaneous every 24 hours. ergocalciferol (Vitamin D) 2,000 International unit By Mouth every week. fluticasone nasal (Flonase 0.05 mg/inh Holland) 2 Sprays Nasal Inhalation every day. each nostril. metformin (MetFORMIN (Eqv-Glucophage XR) 500 mg oral tablet, extended release) 2 Tablets By Mouth every day. PATIENT EDUCATION INFORMATION: Instructions: Abdominal Pain, Adult Follow up: With: Address: When: [address], [place] [address] Business (1) In 3 days DIAGNOSIS: 1:Abdominal painNormalFisher Gaines Medical CenterED Note-Physicianon 09-28-2023 ED Note-PhysicianPatient was [...] understanding agreement this plan is discharged stable condition.[facility] HospitalComment on above:Result Comment: Electronically Signed By: Sidney [...] mL, IV, Once Home Flonase 0.05 mg/inh Holland, 2 spray(s), Nasal, Daily Lovenox 40 mg/0.4 [...] Lab Results No qual (more content not included)...[facility] HospitalComment on above:Result Comment: Electronically Signed By: Bijan Miramontes PA-C\.br\Date and Time Signed: 09/27/2417:50 EDT\.br\Electronically Co-Signed By: Benny Uribe DO\.br\Date and Time Co-Signed: 09/27/2418:44 EDTED Patient Education Noteon 69-90-8899TD Patient Education NoteGastroenterology Abdominal Pain, Adult Pain [...] these instructions at home: Medicines ? Take hbod-gvp-szxxqph and prescription medicines only as told by [...] your condition for any changes. ? Take tvdv-bdh-jguqiye and prescription medicines only as told by [...] Reviewed: 08/25/2019 Elsevier Patient Education ? 2022 [employer] ED Patient Summaryon 17-16-2752CS Patient Summary [place] [id number] Patient Discharge Instructions Person Information Name: SANNA RENDON Age: 37 Years Arrival Date: 09/28/2023 18:21:25 Discharge Diagnosis: 1:Abdominal pain Primary Care Physician: Penelope CASAS DO, FAAFP Provider Information Primary Provider: Benny Uribe DO Advanced Classified Ad Clerk:Bijan Miramontes PA-C The exam and treatment you received in the Emergency Department were for an urgent problem and are not intended as complete care. It is important that you follow up with a doctor, nurse practitioner,or physician?s regional administrative assistant for ongoing care. If your symptoms [...] Follow-up Instructions: With: Address: When: Penelope CASAS [address] [place] [address] [place] [address] [facility] (1) In 3 days In the event that this physician does not participate in your insurance network, please consult with your insurance company to find a nearby participating provider. Patient Education Materials: Abdominal Pain, Adult A MESSAGE TO ALL PATIENTS REGARDING OPIOIDS PRESCRIPTION OPIOIDS: WHAT YOU NEED TO KNOW Prescription opioids can be used to help relieve isvzrqyt-ah-fxklls pain and are often prescribed following a [...] be struggling with addiction, tell your health care program resident and ask for guidance or call SAM[employer]?S National Helpline at 1-710-961-HELP. v Source: Dep (more content not included)...[facility] Office/Clinic Noteon 19-31-2345Hpqbux Medicine Office/Clinic NoteChief Complaint abdominal pain HPI [...] agree with above documented HPI by medical parasitologist. Portions of this record may have been created with voice recognition artificial intelligence software, specifically [employer], [employer] and or [employer]. Substitutions may have occurred due to the inherent limitations of voice recognition and artificial intelligence software. Patient is a 37-year-old female who [facility], for right lower quadrant pain, that [...] Repeat BP 140/90. 37-year-old female presented to [facility], for right lower quadrant abdominal pain, worseningsymptoms throughout the day, history of ovarian cyst, still has her appendix, no right upper quadrant pain. Patient worsening pain on exam, but no acute abdomen. Patient is willing to go to the emergency room after being discharged from [facility], for further evaluation of right lower quadrant [...] loss. We can o (more content not included)...NormalUniversity Hospitals Geneva Medical CenterComment on above:Result Comment: Electronically Signed By: CHARLA QUINTEROS, JANET\.br\Date and Time Signed: 09/28/23 18:28 EDTHEMATOLOGYOrdered By: SYSTEM SYSTEM on 58-48-6039Vxlzwgwfz/100 WBC (Bld)0.7 %Normal0.0 - 2.0 %Remisol HemeBasophils/Leukocytes Auto (Bld) [Pure # fraction]0.1 E9/LNormal0.0 - 0.2 E9/LRemisol HemeEosinophils (Bld) [#/Vol]0.0 E9/LNormal0.0 - 0.5 E9/LRemisol HemeEosinophils/100 WBC (Bld)0.5 % Normal0.0 - 8.0 %Remisol HemeErythrocyte distribution width (RBC) [Ratio]14.3 % High10.9 - 14.2 %Remisol HemeHematocrit (Bld) [Volume fraction]39.5 %Ltxfkv48.0 - 46.0 %Remisol HemeHemoglobin (Bld) [Mass/Vol]13.2 g/pFJniuhp63.0 - 16.0 gm/dL Remisol HemeLymphocytes (Bld) [#/Vol]3.5 E9/LNormal1.0 - 4.0 E9/LRemisol Heme Lymphocytes/100 WBC (Bld)35.6 %Asfnha14.0 - 50.0 %Remisol HemeMCH (RBC) [Entitic mass]29.3 qiTvsymz13.0 - 34.0 pgRemisol HemeMCHC (RBC) [Mass/Vol]33.5 g/dL Qlrqlt53.4 - 36.0 gm/dLRemisol HemeMCV (RBC) [Entitic vol]87.4 aHRxmkfz22.0 - 100.0 fLRemisol HemeMonocytes (Bld) [#/Vol]0.7 E9/LNormal0.2 - 1.0 E9/LRemisol HemeMonocytes/100 WBC (Bld)6.8 %Normal4.0 - 14.0 %Remisol HemeNeutrophils (Bld) [#/Vol]5.6 E9/LNormal2.0 - 7.5 E9/LRemisol HemeNeutrophils/100 WBC (Bld)56.4 % Mtmvla59.0 - 75.0 %Remisol HemePlatelet mean volume (Bld) [Entitic vol]8.1 fL Normal6.4 - 10.8 fLRemisol HemePlatelets (Bld) [#/Vol]360.0 E9/GZyrvjp984.0 - 500.0 E9/LRemisol HemeRBC (Bld) [#/Vol]4.5 E12/LNormal4.3 - 5.9 E12/LRemisol HemeWBC corrected for nucl RBC Auto (Bld) [#/Vol]9.9 E9/LNormal4.0 - 11.0 E9/L Remisol HemeHep Func Panelon 63-57-0176Evpobrk [Mass/Vol]4.8 g/dLNormal3.3-5.0 [facility] CenterComment on above:Performed By: #### [id number] #### [facility] Laboratory [address], [place] [address]Alpehjv/Globulin (S) [Mass conc ratio]1.3Qkuwux0.1-2.2FTrinity Health System West CampusComment on above:Performed By: #### [id number] #### [facility] [address], [place] [address]IUD [Catalytic activity/Vol]66 Int._Unit/XIcyxhs41-96XttnkbUniversity Hospitals Geneva Medical CenterComment on above:Performed By: #### [id number] #### [facility] [address], [place] [address]QJG No additional P-5'-P [Catalytic activity/Vol]16 Int._Unit/L Normal6-46[facility] CenterComment on above:Performed By: #### [id number] #### [facility] [address], [place] [address]ZZL [Catalytic activity/Vol]15 Int._Unit/LNormal5-43[facility] CenterComment on above:Performed By: #### [id number] #### [facility] [address], [place] [address]Engzflyot [Mass/Vol]0.3 mg/dLNormal0.0-1.1FTrinity Health System West CampusComment on above:Performed By: #### [id number] #### [facility] [address], [place] [address]Bvfcyotjv.direct [Mass/Vol]0.0 mg/dLNormal0.0-0.4FTrinity Health System West CampusComment on above:Performed By: #### [id number] #### [facility] [address], [place] [address]Eyxcthecc.indirect [Mass or moles/Vol]0.3 mg/dLNormal0.1-0.9 [facility] CenterComment on above:Performed By: #### [id number] #### [facility] [address], [place] [address]Qulrgfcw (S) [Mass/Vol]3.0 g/dLNormal1.4-4.0[facility] CenterComment on above:Performed By: #### [id number] #### [facility] [address], [place] [address]Atldcgv [Mass/Vol]7.8 g/dLNormal6.0-7.8[facility] CenterComment on above:Performed By: #### [id number] #### [facility] [address], [place] [address]Xqajaj Levelon 77-72-1934Rxkgju [Catalytic activity/Vol]26 U/L Sedwqs87-14SkxlwgUniversity Hospitals Geneva Medical CenterComment on above:Performed By: #### [id number] #### [facility] [address], [place] [address]Louqksa Educationon 70-82-9377Akrbiou EducationCardiovascular Hypertension, Adult Hypertension is another name [...] Keep all follow-up visits. Medicines ? Take ifpf-quu-iwgugct and prescription medicines only as told by [...] blood. ? For m (more content not included)...NormalUniversity Hospitals Geneva Medical CenterRAD - Preliminary Cat Scan Reporton [id number] - Preliminary Cat Scan Report [id number] North Health CenterEROLOGYOrdered By: Amanda Siegel on 01-43-8721Toes HCG ( test) QlNegative (09/28/23 6:59 PM)[facility] Man SeroUA with Cult Rflxon 95-50-0395Inkaxteum Ql (U)NegativeNormalNegGlenbeigh HospitalComment on above:Performed By: #### [id number] ####[facility] Awslrxdimy028 Dallas AveNyale new haven psychiatric hospitalamirah [id number] (U)ClearNormalClearUniversity Hospitals Geneva Medical CenterComment on above:Performed By: #### [id number] ####[facility] Tlcddnkkjc870 Dallas AveNyale new haven psychiatric hospitalamirah [address]Zooes (U)ColorlessAbnormalYellowUniversity Hospitals Geneva Medical CenterComment on above:Result Comment: Microscopic readings are only performed on those samples that meet specific criteria set forth by [facility].Performed By: #### [id number] ####[facility] Q[address]ts[address] [address]Xmihtig Ql (U)Negative NormalNegGlenbeigh HospitalComment on above:Performed By: #### [id number] ####[facility] Rccgcnqrcr733 [facility] Campushermilarye psychiatric hospital centeramirahMAYWOOD, [place] [address]Azcaxftcag Auto test strip (U) [Mass/Vol]NegativeNormalNegGlenbeigh HospitalComment on above:Performed By: #### [id number] ####[facility] Dpgsikypim967 Dallas AveNrockville general hospital, DM[address]Tfrrijc Auto test strip Ql (U)[facility] HollyNormalNegativeUniversity Hospitals Geneva Medical CenterComment on above: Performed By: #### [id number] ####Braulio [address] AveNrockville general hospital, YT[address]Yvcxdonmw esterase Auto test strip Ql (U)Negative NormalNegativeUniversity Hospitals Geneva Medical CenterComment on above:Performed By: #### [id number] ####[address]N[place], [place] [address]Aqssrya Auto test strip Ql (U)[facility] HospitalComment on above:Performed By: #### [id number] ####[place] [address] [address] AveNyale new haven psychiatric hospitalamirah, FN[address]lO (U)7.0 [pH]Invalid Interpretation Code5.0-9.0[facility] CenterComment on above:Performed By: #### [id number] ####[address], [place]Fxpjwfm Ql (U)[facility] Community HospitalComment on above:Performed By: #### [id number] ####[place] [address], [place]Hjqfsmhg gravity (U) [Rel density]1.003Invalid Interpretation Code1.005-1.030[facility] Comment on above:Performed By: #### [id number] ####[place] [address] [address] AveNyale new haven psychiatric hospitalamirah, TP[address]Smjzduhsqsgs (U) [Mass/Vol]Negative NormalNegGlenbeigh HospitalComment on above:Performed By: #### [id number] ####[place] [address] [address]Hppk of Urine collection methodClean CatchClermont County Hospital Comment on above:Performed By: #### [id number] ####[facility] Kjnubxwuxw[address], SU[address]UUNSROLJXZElquhuc By: SYSTEM SYSTEM on 11-86-1462Naoofdfji Ql (U)NegativeNormalNegativemg/dLALLIANCEHEALTH [facility] – [facility] UA Auto SSClarity (U) Clear (09/28/23 7:35 PM)NormalClearFTM UA Auto SSColor (U)Colorless 1 *ABN* (09/28/23 7:35 PM)Invalid Interpretation CodeYellowALLIANCEHEALTH MADILL – [facility] UA Auto SSComment on above:Interpretive Data: Microscopic readings are only performed on those samples that meet specific criteria set forth by [facility].Glucose Ql (U)NegativeNormalNegativemg/dLALLIANCEHEALTH MADILL [facility] UA Auto SSHemoglobin Auto test strip (U) [Mass/Vol]NegativeNormalNegativemg/dLALLIANCEHEALTH MAD[facility] UA Auto SSKetones Auto test strip Ql (U)NegativeNormalNegativemg/dLALLIANCEHEALTH [facility] UA Auto SSLeukocyte esterase Auto test strip Ql (U)NegativeNormalNegativeLeu/uLALLIANCEHEALTH [facility] UA Auto SS Nitrite Auto test strip Ql (U)NegativeNormalNegativemg/dLALLIANCEHEALTH [facility] UA Auto SSpH (U) 7.0 *NA* (09/28/23 7:35 PM)Invalid Interpretation Code5.0 - 9.0[facility]A Auto SSProtein Ql (U)NegativeNormalNegativemg/dLALLIANCEHEALTH [facility] UA Auto SSSpecific gravity (U) [Rel density] 1.003 *NA* (09/28/23 7:35 PM)Invalid Interpretation Code1.005 - 1.030[facility]A Auto SS Urobilinogen (U) [Mass/Vol]NegativeNormalNegativemg/dLALLIANCEHEALTH [facility] UA Auto SSURINALYSIS Ordered By: Bijan Miramontes on 51-69-6928OF Spec DescClean Catch (09/28/23 7:35 PM)NormalALLIANCEHEALTH MADILL – [facility] UA Auto SS eGFRon 00-70-8792vLRW25 mL/min/1.73 g9Zlapxy>=59AlecUPMC Western MarylandComment on above:Order Comment: Order added by Discern Expert.Performed By: #### [id number] #### Braulio [facility] Laboratory [address] [place], [place] [address]Jjnhjthbga Visit Summaryon 54-33-3243Ljcjrjffxo Visit Summary SANNA RENDON :1985 Visit Date:08/03/2023 [...] (Vitamin D) fluticasone nasal (Flonase 0.05 mg/inh Holland) metformin (MetFORMIN (Eqv-Glucophage XR) 500 mg oral [...] months Where: [address], [place] [address]- You Need to Complete the Following HgbA1c, [...] Unchanged fluticasone nasal (Flonase 0.05 mg/ inh Holland) 2 Sprays Nasal Inhalation Every day each [...] ? Walking a mile (more content not included)...[facility] Medicine Office/Clinic Noteon 57-61-0287Tnzswc Medicine Office/Clinic NoteChief Complaint Wants to discuss [...] comfortable with plan. PNMV Ordered: A1c POC 32209 Total time spent preparing the chart, conducting [...] FAAFP, CHRIS, PED In [address] [place] [address]- Additional Instructions: Patient Education Exercising to Lose Weight Problem Lis (more content not included)...[facility] Comment on above:Result Comment: Electronically Signed By: [...] your health care provider or diet and military logistics specialist (dietitian). This may include: ? Eating [...] regular exercise is e (more content not included)...[facility] HospitalPatient Educationon 60-60-6937Dhezbnc EducationEndocrinology Blood Glucose Monitoring, Adult Monitoring your [...] meter by following in (more content not included)...NormalUniversity Hospitals Geneva Medical CenterLab Reportson 35-08-8310Dtu Reports [id number]#1.00TIFFNormalUniversity Hospitals Geneva Medical CenterConsultation Noteon 04-00-4502Swpunpwafouj Note [id number]#1.00[facility] Medical CenterAmbulatory Visit Summaryon 24-19-6994Iituuavovq Visit Summary SANNA RENDON :1985 Visit Date:05/25/2023 [...] EDT With: Penelope CASAS DO, FAAFP Where: [facility] Family Medicine Office/Clinic Noteon 13-48-2384Pfcnsp Medicine Office/Clinic NoteChief Complaint States she is [...] Benadryl. 2. Dyshidrotic eczema (L30.1: Dyshidrosis [pompholyx]) Xgfk-trb-occrqyg hydrocortisone cream 1% or 2.5% as directed. [...] Tony, CHRIS, PED In 2 months [address], [place] [address]- Additional Instructions: Patient Education Eustachian Tube Dysfunction Dyshidrotic Eczema Allergies, Tadeo (more content not included)...[facility] Comment on above:Result Comment: Electronically Signed By: [...] ears completely after. General instructions ? Take foej-knu-mhwmvvn and prescription medicines only as told by [...] cases are treated w (more content not included)...[facility] HospitalC Urineon 08-52-9139Mkwwcygv identified Cx Nom (U) Microbiology PROCEDURE: Urine [...] Locations R1: This test was performed at: [facility], [address] [place] [address], [facility] , , HihrcfRhnpveClermont County HospitalComment on above:Performed By: #### [id number] ####[facility] [address] [place], [place] [address]Consent for Treatmenton 74-51-5712Wzlzqay for Treatment [id number]#1.00TIFFClermont County HospitalUrinalysison 80-78-2020Fcwbqkig LM Ql (Urine sed)TRACENoSumma Health Wadsworth - Rittman Medical CenterComment on above:Performed By: #### [id number] ####[facility] [address] [address]Zggufydxs Ql (U) NegativeNormalNegativeUniversity Hospitals Geneva Medical CenterComment on above:Performed By: #### [id number] ####[facility] [address] [address]Lqexxwg (U)CLOUDYAbnormalClearFTrinity Health System West CampusComment on above:Performed By: #### [id number] ####Braulio [address] [address]Jcwyw (U)YELLOWNormalYellowUnc Health Rockinghamer [facility] Orthopaedic InstituteComment on above:Performed By: #### [id number] ####[address] [address]Lczyiqooxr cells.squamous LM.HPF (Urine sed) [#/Area]/[HPF]Normal0-2Fisher [facility] Orthopaedic InstituteComment on above:Performed By: #### [id number] ####Braulio [address] [address]Vapungt Test strip (U) [Mass/Vol]NegativeNormal NegativeUniversity Hospitals Geneva Medical CenterComment on above:Performed By: #### [id number] ####[address] [address] Hemoglobin Ql (U)NegativeNormalNegativeUniversity Hospitals Geneva Medical CenterComment on above:Performed By: #### [id number] ####[facility] [address] [address]Riitaif (U) [Mass/Vol]NegativeNormalNegativeUniversity Hospitals Geneva Medical CenterComment on above:Performed By: #### [id number] ####Braulio [address] [address] Liebenthal.plasma/Liebenthal.RBC (Bld) [Mass ratio]5-5Pyydnu0-3Sdchwf [facility] Orthopaedic InstituteComment on above:Performed By: #### [id number] ####Braulio [address] [address]Abwrque Ql (U)NegativeNormal NegativeUniversity Hospitals Geneva Medical CenterComment on above:Performed By: #### [id number] ####[address] [address]tZ (U)6.0 [pH]Invalid Interpretation Code5.0-9.0[facility]als Geneva Medical CenterComment on above:Performed By: #### [id number] ####[address] [address]Omyuuuy (U) [Mass/Vol]NegativeNormal NegativeUniversity Hospitals Geneva Medical CenterComment on above:Performed By: #### [id number] ####[address] [address] Specific gravity (U) [Rel density]<=1.005Invalid Interpretation Code1.005-1.030 [facility] Geneva Medical CenterComment on above:Performed By: #### [id number] ####[address] [address]Xysu of Urine collection methodClean CatchNormalUniversity Hospitals Geneva Medical CenterComment on above:Performed By: #### [id number] ####[address] [address]Fyqeatvpwphw Qn (U)0.2 {Nicole'U}/dLNormal0.0-1.0 [facility] Geneva Medical CenterComment on above:Performed By: #### [id number] ####[address] [address]XJB Auto Ql (U)TRACEAbnormalNegativeUniversity Hospitals Geneva Medical CenterComment on above: Performed By: #### [id number] ####[address] [address]JVP LM.HPF (Urine sed) [#/Area]8-3Sgvjfo5-8Uzhfbz [facility] Orthopaedic InstituteComment on above:Performed By: #### [id number] ####[address] [address]Uvcdwkgwzg Visit Summaryon 77-09-5130Tftoficqna Visit Summary SANNA RENDON :1985 Visit Date:04/27/2023 [...] EST With: Penelope CASAS DO, FAAFP [facility] CHEMISTRYOrdered By: SYSTEM SYSTEM on 37-53-6198LXC Qn4.04 m[IU]/LNormal0.34 - 5.60 mcIU/mLRemisol ChemFami Medicine Office/Clinic Noteon 34-44-9847Nadfge Medicine Office/Clinic NoteChief Complaint Since last Sunday [...] feeding. No loss of taste nor smell. [id number] while taking Glucophage XR 500 mg p.o. [...] Push fluids and Tylenol and or ibuprofen rbeg-fyn-ycfcsen as directed. Patient does not appear ill [...] Your BMIand weight manag (more content not included)...[facility] HospitalComment on above: Result Comment: Electronically Signed By: KAPLE DO Penelope MAS.cedrick\Date and Time Signed: 04/27/23 12:53 ESTPatient Educationon 30-01-7040Wgtcyfg Education Endocrinology Diabetes Mellitus and Exercise Exercising [...] plan? Your health care provider or certified nurse midwife can help you make a plan for [...] stroke). Where to find more information ? [place] [employer]: www.diabetes.org Summary ? Exercising regularly is important for overall health, especially for people who have diabetes mellitus. ? Exercising has many health benefits. It increases muscle strength and bone density and reduces body fat and stress. It also lowers and controls blood glucose. ? Your health care provider or certified nurse midwife can help you make an activity plan [...] provider. Document Revised: 01/12/2020 Document Reviewed: 01/12/2020 [employer] Patient Education ? 2022 [employer] Preventing Hypoglycemia Hypoglycemia occurs when the level of sugar (glucose) in the blood is too low. Hypoglycemia can happen in people who do or do not have diabetes (diabetes (more content not included)...NormalUniversity Hospitals Geneva Medical CenterTSHon 68-87-2831KRF Qn 4.04 m[IU]/LNormal0.34-5.60[facility] Geneva Medical CenterComment on above:Performed By: #### [id number] ####Braulio [facility] [address] [place], [place] [address]Rwxaoasnhp Visit Summaryon 13-23-1975Quipukhqyz Visit Summary SANNA RENDON :1985 Visit Date:02/15/2023 [...] In 2 months Where: [address], [facility] [place] [address]- You Need to Complete the Following HgbA1c, [...] miscarriage Suspected COVID-19 virus infection Vaginal [facility] Medicine Office/Clinic Noteon 02-37-5276Wwrqen Medicine Office/Clinic NoteChief Complaint States since Sunday evening her right ear is draining and is a little painful 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 She is continuing 500 mg of metformin [...] Contact Information PRAVEEN Johnson (more content not included)...[facility] HospitalComment on above:Result Comment: Electronically Signed By: Penelope CASAS DO, FAAFP\.cedrick\Date and Time Signed: 02/15/23 10:13 EDTPatient Educationon [...] cannot use soap and water, use hand route sales representative. 2. Make sure your ears are clean [...] cannot use soap and water, use hand route sales representative. Follow these instructions at home: ? Use [...] provider. Document Revised: 02/11/2020 Document Reviewed: 02/11/2020 [employer] Patient Education ? 2022 [employer] Infectious Disease Otitis Externa Otitis externa [...] you start to feel better. ? Take jjwq-awl-rgesssf and prescription medicines only as told by your doctor. ? Avoid getting water in your ears as told by your doctor. You may be told to avoid swimming or water sports for a few days. ? Keep all follow-up visits. How is this prevented? ? Keep your ears dry. Use the corner o (more content not included)...Normal [facility] Geneva Medical CenterPatient Educationon 89-39-7740Fdijwyf Education Immunology Fatigue If you have fatigue, [...] these instructions at home: Medicines ? Take rzzq-lsd-wnimrpi and prescription medicines only as told by [...] the National Suicide Prevention Lifeline at or 075. This is open 24 hours a day. ? Text the Crisis Text Line at 944904. Summary ? If you have fatigue, you [...] 02/06/2022 Document Reviewed: 02/06/2022 Elsevier Patient Education ? 2022 [employer] Inc. Urology Urodynamic Testing Urodynamic tests are [...] ? Leaking urine (inco (more content not included)...NormalUniversity Hospitals Geneva Medical CenterCHEMISTRYOrdered By: SYSTEM SYSTEM on 44-15-6719Spnl T4 [Mass/Vol]0.58 ng/dLNormal0.58 - 1.64 ng/dLFT RemisolTSH Qn3.35 m[IU]/LNormal0.34 - 5.60 mcIU/mLFT RemisolAlbumin [Mass/Vol]4.5 g/dLNormal3.3 - 5.0 gm/dLFT Remisol Albumin/Globulin [Mass ratio]1.4 {ratio}Normal1.1 - 2.2[facility] RemisolALP [Catalytic activity/Vol]62 [iU]/bUnkpie07 - 98 Int._Unit/LFTMC RemisolALT No additional P-5'-P [Catalytic activity/Vol]27 [iU]/dNormal6 - 46 Int._Unit/LFTMC RemisolAnion gap [Moles/Vol]13 mmol/LNormal6 - 16 mEq/LFT[facility] RemisolAST [Catalytic activity/Vol]21 [iU]/dNormal5 - 43 Int._Unit/LFT[facility] RemisolBilirubin [Mass/Vol]0.3 mg/dLNormal0.0 - 1.1 mg/dLFTMC RemisolCalcium [Mass/Vol]9.6 mg/dL Normal8.9 - 11.1 mg/dLFTMC RemisolChloride [Moles/Vol]104 mmol/AQcfbuu306 - 111 mmol/LFT[facility] RemisolCO2 [Moles/Vol]25 mmol/VVagcex63 - 31 mmol/LFT[facility] Remisol Cobalamin (Vitamin B12) [Mass/Vol]211 pg/aWCfyemu07 - 1500 pg/mLFT[facility] Remisol Creatinine [Mass/Vol]0.9 mg/dLNormal0.5 - 1.3 mg/dLFTMC RemisolFerritin [Mass/Vol]38 ng/gBIbbaue00 - 307 ng/mLFT[facility] RemisolFolate [Mass/Vol]13.5 ng/mL Normal>=6.7ng/mLFTMC RemisolGFR/1.73 sq M.predicted among non-blacks MDRD (S/P/Bld) [Vol rate/Area]85 mL/min/1.73 k8Utbtjk>=59mL/min/1.73 m2[facility] Chem S Globulin (S) [Mass/Vol]3.3 g/dLNormal1.4 - 4.0 gm/dLFT[facility] RemisolGlucose [Mass/Vol]93 mg/fNIwnjsp51 - 199 mg/dLFTMC RemisolIron [Mass/Vol]56 ug/dLNormal 35 - 153 mcg/dLFTMC RemisolIron binding capacity [Mass/Vol]395 ug/eORsofmp783 - 400 mcg/dLFT[facility] RemisolPotassium [Moles/Vol]3.7 mmol/LNormal3.5 - 5.3 mmol/LFT[facility] RemisolProtein [Mass/Vol]7.8 g/dLNormal6.0 - 7.8 gm/dLFT[facility] RemisolSodium [Moles/Vol]138 mmol/EUifnpi506 - 145 mmol/LFT[facility] RemisolTransferrin [Mass/Vol]282 mg/vNRqqwql309 - 370 mg/dLFT[facility] RemisolUrea nitrogen [Mass/Vol]11 mg/dLNormal5 - 21 mg/dLFT[facility] RemisolUrea nitrogen/Creatinine [Mass ratio]12 mg/atNdgzhw94 - 20 [facility] RemisolHEMATOLOGYOrdered By: [employer] SYSTEM on 48-11-8762Vndxwpvvq/100 WBC (Bld)0.6 %Normal0.0 - 2.0 %[facility] HemeAutoSSBasophils/Leukocytes Auto (Bld) [Pure # fraction]0.0 E9/LNormal0.0 - 0.2 E9/LFTMC HemeAutoSSEosinophils/100 WBC (Bld) 1.1 %Normal0.0 - 8.0 %[facility] HemeAutoSSEosinophils/Leukocytes Auto (Bld) [Pure # fraction]0.1 E9/LNormal0.0 - 0.5 E9/LFTMC HemeAutoSSLymphocytes/100 WBC (Bld) 42.4 %Ghauck98.0 - 50.0 %[facility] HemeAutoSSLymphocytes/Leukocytes Auto (Bld) [Pure # fraction]3.4 E9/LNormal1.0 - 4.0 E9/LFT[facility] HemeAutoSSMonocytes/100 WBC (Bld)8.0 %Normal4.0 - 14.0 %[facility] HemeAutoSSMonocytes/Leukocytes Auto (Bld) [Pure # fraction]0.6 E9/LNormal0.2 - 1.0 E9/LFT[facility] HemeAutoSSNeutrophils/100 WBC (Bld) 47.9 %Lhguhp69.0 - 75.0 %[facility] HemeAutoSSNeutrophils/Leukocytes Auto (Bld) [Pure # fraction]3.8 E9/LNormal2.0 - 7.5 E9/LFT[facility] HemeAutoSSHEMATOLOGYOrdered By: Trena Castro on 18-25-1801Vvprhcnxodb distribution width (RBC) [Ratio]14.5 % High10.9 - 14.2 %[facility] HemeAutoSSHematocrit (Bld) [Volume fraction]37.4 %Normal 34.0 - 46.0 %[facility] HemeAutoSSHemoglobin (Bld) [Mass/Vol]13.1 g/jVKlhdfq71.0 - 16.0 gm/dLFTMC HemeAutoSSMCH (RBC) [Entitic mass]30.6 zwPgqtic46.0 - 34.0 pgFTMC HemeAutoSSMCHC (RBC) [Mass/Vol]34.9 g/bTHpqwsw02.4 - 36.0 gm/dLFTMC HemeAutoSS MCV (RBC) [Entitic vol]87.7 kNXkaevz61.0 - 100.0 fLFTMC HemeAutoSSPlatelet mean volume (Bld) [Entitic vol]8.2 fLNormal6.4 - 10.8 fLFTMC HemeAutoSSPlatelets (Bld) [#/Vol]334.0 E9/AOhcrfx398.0 - 500.0 E9/LFT[facility] HemeAutoSSRBC (Bld) [#/Vol] 4.3 E12/LNormal4.3 - 5.9 E12/LFT[facility] HemeAutoSSWBC corrected for nucl RBC Auto (Bld) [#/Vol]7.9 E9/LNormal4.0 - 11.0 E9/LFT[facility] HemeAutoSSCHEMISTRYOrdered By: SYSTEM SYSTEM on 63-62-3694Gkhj T4 [Mass/Vol]0.58 ng/dLNormal0.58 - 1.64 ng/dL [facility] RemisolTSH Qn3.10 m[IU]/LNormal0.34 - 5.60 mcIU/mLFTMC RemisolCHEMISTRY Ordered By: Valeri German on 65-83-6776ZgB8m (Bld) [Mass fraction]5.9 %Normal <=5.9%[facility] ChemAutoSSCHEMISTRYOrdered By: SYSTEM SYSTEM on 89-14-3702Uvyp T4 [Mass/Vol]0.71 ng/dLNormal0.58 - 1.64 ng/dLFTMC RemisolTSH Qn3.77 m[IU]/LNormal 0.34 - 5.60 mcIU/mLFTMC RemisolCBC AUTO DIFFon 57-74-3603CJLK #0.0 103/ulNormal 0.0-0.1The [facility] HospitalComment on above:Performed By: #### HIV12 #### [facility] [address] [address] [address] Edward GillBasophils/100 WBC (Bld)0.4 %Normal0.2-2.0[facility] Comment on above:Performed By: #### HIV12 #### [facility] [address] [place] [address] Dr. Edward Traore #0.1 103/ulNormal0.0-0.7The [facility] HospitalComment on above: Performed By: #### HIV12 #### [facility] [address] [place] [address] Dr. Edward Calhounosinophils/100 WBC (Bld)1.3 %Normal0.9-7.0[facility] Comment on above:Performed By: #### HIV12 #### [facility] [address] [place] [address] Dr. Edward Westthrocyte distribution width (RBC) [Ratio]16.6 %Critically high 11.0-15.0[facility] SystemComment on above:Performed By: #### HIV12 #### [facility] [address] [place] [address] Dr. Edward GillHematocrit (Bld) [Volume fraction]30.2 %Critically low36.0-48.0 The [facility] HospitalComment on above:Performed By: #### HIV12 #### [facility] [address] [place] [address] Dr. Edward GillHemoglobin (Bld) [Mass/Vol]10.5 g/dLCritically low12.0-16.0[facility] SystemComment on above:Performed By: #### HIV12 #### [facility] [address] [place] [address] Dr. Edward Ray #0.04 10e3/ulCritically high0.00-0.03The [facility] Comment on above:Performed By: #### HIV12 #### [facility] [address] [place] [address] Dr. Edward Ray %0.4 %Normal0.0-0.5ThSt. Vincent HospitalComment on above: Performed By: #### HIV12 #### [facility] [address] [place] [address] Dr. Edward Velásquez #3.1 103/ulNormal1.2-3.8The [facility] HospitalComment on above:Performed By: #### HIV12 #### [facility] [address] [place] [address] Dr. Edward Ronmphocytes/100 WBC (Bld)34.2 %Sywene06.5-60.0The [facility] HospitalComment on above:Performed By: #### HIV12 #### [facility] [address] [place] [address] Dr. Edward SimmonsUAL DIFF REQNONormalThe [facility] HospitalComment on above: Performed By: #### HIV12 #### [facility] [address] [place] [address] Dr. Edward June (RBC) [Entitic mass]30.3 fmPixqhi68.7-34.0The [facility] HospitalComment on above:Performed By: #### HIV12 #### [facility] [address] [place] [address] Dr. Edward June (RBC) [Mass/Vol]34.8 g/jBHpsiyh56.9-35.2The [facility] HospitalComment on above:Performed By: #### HIV12 #### [facility] [address] [place] [address] Dr. Edward June (RBC) [Entitic vol]87.0 zFFkpjmr65.0-99.0The [facility] HospitalComment on above:Performed By: #### HIV12 #### [facility] [address] [place] [address] Dr. Edward Rosas #0.7 103/ulNormal0.3-0.8The [facility] HospitalComment on above:Performed By: #### HIV12 #### [facility] [address] [place] [address] Dr. Edward Ignacioocytes/100 WBC (Bld)7.5 %Normal1.7-12.0[facility] Comment on above:Performed By: #### HIV12 #### [facility] [address] [place] [address] Dr. Edward Guevara #5.0 103/ulNormal1.4-6.5The [facility] HospitalComment on above:Performed By: #### HIV12 #### [facility] [address] [place] [address] Dr. Edward Moralesutrophils/100 WBC (Bld)56.2 %Nirigf36.0-75.0The [facility] HospitalComcorewell health big rap[facility] on above:Performed By: #### HIV12 #### [facility] [address] [place] [address] Dr. Edward GillPlatelet mean volume (Bld) [Entitic vol]9.8 fLNormal9.5-13.5The [facility] HospitalComcorewell health big rapids hospital on above:Performed By: #### HIV12 #### [facility] [address] [place] [address] Dr. Edward GillPLT238 103/jeRpltpt798-742Wfg [facility] HospitalComcorewell health big [facility] on above: Performed By: #### HIV12 #### [facility] [address] [place] [address] Dr. Edward GillRBC3.47 106/ulCritically low4.20-5.40[facility] on above:Performed By: #### HIV12 #### [facility] [address] [place] [address] Dr. Edward GillWBC9.0 103/ulNormal4.0-11.0The [facility] HospitalComcorewell health [facility] on above: Performed By: #### HIV12 #### [facility] [address] [place] [address] Dr. Edward GillFETAL SCREENon 03-49-3385OZZHR SCREENNegTrinity Health System Twin City Medical CenterComcorewell health [facility] hospital on above:Performed By: #### FETSCRN #### [facility] [address] [place] [address] Dr. Edward GillDIRECT COOMBSon 32-27-7736WHGNEW COOMBSNegTrinity Health System Twin City Medical CenterComment on above:Performed By: #### DIRCMB #### [facility] [address] [address] [address] Edward GillPOINT OF CARE GLUCOSEon 04-50-2085Qforpqi [Mass/Vol]117 mg/dL Critically ehjf31-556Hgh [facility] HospitalComment on above:Performed By: #### POCGLUC ####[facility] [address] [address]Dr. Edward GillTYPE AND SCREENon 26-58-1089BLWL AND SCREENNegativeNormalThe [facility] HospitalComment on above:Performed By: #### TNS #### [facility] [address] [place] [address] Dr. Edward AlfaroC AUTO DIFFon 59-44-4961ERDT #0.0 103/ulNormal0.0-0.1The [facility] Hospitalment on above:Performed By: #### HIV12 #### [facility] [address] [place] [address] Dr. Edward GillBasophils/100 WBC (Bld)0.2 %Normal0.2-2.0[facility] Comment on above:Performed By: #### HIV12 #### [facility] [address] [place] [address] Dr. Edward Traore #0.0 103/ulNormal0.0-0.7The [facility] Hospitalment on above: Performed By: #### HIV12 #### [facility] [address] [place] [address] Dr. Edward Calhounosinophils/100 WBC (Bld)0.5 %Critically low0.9-7.0The [facility] Hospitalment on above:Performed By: #### HIV12 #### [facility] [address] [place] [address] Dr. Edward Calhounrythrocyte distribution width (RBC) [Ratio]16.1 %Critically high 11.0-15.0The [facility] Hospitalment on above:Performed By: #### HIV12 #### [facility] [address] [place] [address] Dr. Edward GillHematocrit (Bld) [Volume fraction]32.1 %Critically low36.0-48.0 The [facility] HospitalComment on above:Performed By: #### HIV12 #### [facility] [address] [place] [address] Dr. Edward GillHemoglobin (Bld) [Mass/Vol]11.7 g/dLCritically low12.0-16.0The [facility] HospitalComment on above:Performed By: #### HIV12 #### [facility] [address] [place] [address] Dr. Edward Ray #0.04 10e3/ulCritically high0.00-0.03The [facility] Comment on above:Performed By: #### HIV12 #### [facility] [address] [place] [address] Dr. Edward Ray %0.5 %Normal0.0-0.5The [facility] HospitalComment on above: Performed By: #### HIV12 #### [facility] [address] [place] [address] Dr. Edward Velásquez #2.4 103/ulNormal1.2-3.8The [facility] HospitalComment on above:Performed By: #### HIV12 #### [facility] [address] [place] [address] Dr. Edward Alvarezhocytes/100 WBC (Bld)27.2 %Hhpdki39.5-60.0The [facility] HospitalComment on above:Performed By: #### HIV12 #### [facility] [address] [place] [address] Dr. Edward SimmonsUAL DIFF REQNONormalThe [facility] HospitalComment on above: Performed By: #### HIV12 #### [facility] [address] [place] [address] Dr. Edward De Leon (RBC) [Entitic mass]30.0 axZexwxs64.7-34.0The [facility] HospitalComment on above:Performed By: #### HIV12 #### [facility] [address] [place] [address] Dr. Edward JuneHC (RBC) [Mass/Vol]36.4 g/dLCritically high29.9-35.2The [facility] HospitalComment on above:Performed By: #### HIV12 #### [facility] [address] [place] [address] Dr. Edward JuneV (RBC) [Entitic vol]82.3 fWJzgfrx99.0-99.0The [facility] HospitalComment on above:Performed By: #### HIV12 #### [facility] [address] [place] [address] Dr. Edward Rosas #0.7 103/ulNormal0.3-0.8The [facility] HospitalComment on above:Performed By: #### HIV12 #### [facility] [address] [place] [address] Dr. Edward Ignacioocytes/100 WBC (Bld)7.7 %Normal1.7-12.0The [facility] Comment on above:Performed By: #### HIV12 #### [facility] [address] [place] [address] Dr. Edward Guevara #5.5 103/ulNormal1.4-6.5The [facility] HospitalComment on above:Performed By: #### HIV12 #### [facility] [address] [place] [address] Dr. Edward Moralesutrophils/100 WBC (Bld)63.9 %Yukxel93.0-75.0The [facility] Pointe HospitalComment on above:Performed By: #### HIV12 #### [facility] [address] [place] [address] Dr. Edward Serranolet mean volume (Bld) [Entitic vol]10.0 fLNormal9.5-13.5The [facility] Pointe HospitalComment on above:Performed By: #### HIV12 #### [facility] [address] [place] [address] Dr. Edward GillPLT274 103/eeXsepnl077-800Orf [facility] HospitalComment on above: Performed By: #### HIV12 #### [facility] [address] [address] [address] Edward GillRBC3.90 106/ulCritically low4.20-5.40The [facility] Po[facility] HospitalComment on above:Performed By: #### HIV12 #### [facility] [address] [address] [address] Edward GillWBC8.7 103/ulNormal4.0-11.0The [facility] HospitalComment on above: Performed By: #### HIV12 #### [facility] [address] [address] [address] Edward GillCovid-19 PCR (CVDTB)on 98-22-0504PUSL-CoV-2 (COVID-19) RNA LELO+probe Ql (Unsp spec)Not detectedNormalNOT DETECTEDThe [facility] Comment on above:Result Comment: When diagnostic [...] for this test is supported by the [place] of Health and Human Service's declaration that [...] longer be used).Performed By: #### HIV12 #### [facility] [address] [address] [address] Edward GillDRUG SCREEN RAPID (URINE)on 66-82-3465VHJQhfywermCdzkigBPXANCCM The [facility] HospitalComment on above:Performed By: #### DRUGRPD ####[facility] [address] [address]Dr. Yilan ChangBAR NegativeNormalNEGATIVEUniversity Hospitals Health SystemComment on above:Performed By: #### DRUGRPD ####[facility] Qujmihfpcu[address] [place], [place] [address]Dr. Edward GillBUPNegativeNormalNEGATIVEUniversity Hospitals Health SystemComment on above:Performed By: #### DRUGRPD ####[facility] Mdqttreaav[address] [place], [place] [address]Dr. Edward GillBZONegativeNormalNEGATIVEUniversity Hospitals Health SystemComment on above:Performed By: #### DRUGRPD ####[facility] Vctbfbcklt82[address] [place], [place] [address]Dr. Edward GillCOCNegative NormalNEGATIVEUniversity Hospitals Health SystemComment on above:Performed By: #### DRUGRPD ####[facility] Egxvultsyu[address] [place], [place] [address]Dr. Edward GillCUT-PENN HIGHLANDS HEALTHCAREE Mount St. Mary HospitalComment on above:Result Comment: AMP (Amphetamine): 500ng/mL, BAR (Barbituates): 200 ng/mL, BZO (Benzodiazepines): 150 ng/mL, BUP (Buprenorphine): 10 ng/mL, INDIA (Cocaine): 150 ng/mL, mAMP (Methamphetamine): 500 ng/mL, MTD (Methadone): 200 ng/mL, OPI (Opiates): 100 ng/mL, OXY (Oxycodone): 100 ng/mL, PCP (Phencyclidine): 25 ng/mL, PPX (Propoxyphene): 300 ng/mL, THC (Cannabinoids): 50 ng/mL, TCA (Trycyclic Antidepressants): 300 ng/mLPerformed By: #### DRUGRPD ####[facility] Gaqtuujpym[address] [place], [place] [address]Dr. Edward GillDRUG CUT HEADERDRUG CLASS TEST SYSTEM CUT-OFF CONCENTRATIONS ARE FOLLOWS:NormalUniversity Hospitals Health SystemComment on above:Performed By: #### DRUGRPD ####[facility] Emcfaccrpp[address] [place], [place] [address]Dr. Edward GillmAMP NegativeNormalNEGATIVEThe Newport Coast HospitalComment on above:Performed By: #### DRUGRPD ####[facility] [address] [address]Dr. Yilan ChangMTDNegativeNormalNEGATIVEOhiohealth Grady Memorial Hospital HospitalComment on above:Performed By: #### DRUGRPD ####[facility] [address] [address]Dr. Yilan ChangOPINegativeNormalNEGATIVEOhiohealth Grady Memorial Hospital HospitalComment on above:Performed By: #### DRUGRPD ####[facility] Sjgvydebtn[address] [place], [place] [address]Dr. Yilan ChangOXYNegative NormalNEGATIVEOhiohealth Grady Memorial Hospital HospitalComment on above:Performed By: #### DRUGRPD ####[facility] Ksxsxajbdk[address] [place], [place] [address]Dr. Yilan ChangPCPNegativeNormalNEGATIVEOhiohealth Grady Memorial Hospital HospitalComment on above: Performed By: #### DRUGRPD ####[facility] Jswwjpmykj[address] [place], [place] [address]Dr. Yilan ChangPPXNegativeNormalNEGATIVEOhiohealth Grady Memorial Hospital HospitalComment on above:Performed By: #### DRUGRPD ####[facility] Bailzpznph[address] [place], [place] [address]Dr. Yilan ChangTCANegative NormalNEGATIVEOhiohealth Grady Memorial Hospital HospitalComment on above:Performed By: #### DRUGRPD ####[facility] Nerfmuupjw[address] [place], [place] [address]Dr. Yilan ChangTHCNegativeNormalNEGATIVEOhiohealth Grady Memorial Hospital HospitalComment on above: Performed By: #### DRUGRPD ####[facility] Zofyanykww754[address] [place], [place] [address]Dr. Edward GillUS PREG BIOPHY W NON STRESSon 40-84-4380OS PREG BIOPHY W NON STRESSEXAMINATION: US PREG [...] Electronically authenticated by: HUMERA KIM Date: 2022-05-06 19:05[facility] HospitalUS PREG BIOPHY W NON STRESSon 04-29-7725MO PREG BIOPHY W NON STRESSEXAMINATION: US PREG [...] Electronically authenticated by: ANGIE GALDAMEZ Date: 2022-05-01 16:16[facility] HospitalGROUP B STREP CULTUREon 04-23-2022. agalactiae Ag [...] Tetracycline >=16 R F Vancomycin =0.5 S FNHighland District HospitalComment on above:Performed By: #### GBSCX ####[facility] Snrfemibis[address] [place], [place] [address]DrLazara Edward Sherwood PREG BIOPHY W NON STRESSon 74-97-8656TL PREG BIOPHY W NON STRESSEXAMINATION: US PREG [...] Electronically authenticated by: HUMERA KIM Date: 2022-04-17 17:08[facility] HospitalUS PREG GROWTHon [id number] PREG GROWTHEXAMINATION: US PREG GROWTH HISTORY: Gestational [...] Electronically authenticated by: HUMERA KIM Date: 2022-04-17 16:49[facility] HospitalUS PREG BIOPHY W NON STRESSon [id number] PREG BIOPHY W NON STRESSEXAMINATION: US PREG [...] Electronically authenticated by: HUMERA KIM Date: 2022-04-12 08:56[facility] HospitalGLUCOSE, BLOOD (POC)on 58-66-4868Pqtobqv [Mass/Vol]106 mg/dL Cizvqysw74 - 99 mg/dLSelect Medical Specialty Hospital [facility] PREG BIOPHY W NON STRESSon 27-32-3264YM PREG BIOPHY W NON STRESSEXAMINATION: US PREG [...] Electronically authenticated by: HUMERA KIM Date: 2022-04-01 16:08[facility] PREG BIOPHY W NON STRESSon 50-62-8316QV PREG BIOPHY W NON STRESSEXAMINATION: US PREG [...] Electronically authenticated by: HUMERA KIM Date: 2022-03-27 08:54[facility] PREG GROWTHon 86-68-7364JD PREG GROWTHEXAMINATION: US PREG GROWTH HISTORY: Maternal [...] Electronically authenticated by: HUMERA KIM Date: 2022-03-17 06:04[facility] 99-72-8446QXY4.586 uIU/mLNormal0.358-3.740The [facility] HospitalComment on above:Performed By: #### HIV12 #### [facility] [address] [place] [address] Dr. Edward GillTYPE AND SCREENon 04-34-2672HODO AND SCREENNegativeMercy Health Defiance HospitalComment on above:Performed By: #### TNS #### [facility] [address] [place] [address] Dr. Edward Emanuel ACOG PANEL 2: 30 to 65on 02-21-2022..NormalThe [facility] Clinic [facility] Pointe HospitalComment on above:Result Comment: Performed at: WBPerformed By: #### [id number] ####[address] [address]Dr. Edward Koenig Gdln ACOG Qyjkoko78-32IshtnrRnjCleveland ClinicComment on above:Performed By: #### [id number] ####[facility] [address]el[address] [address]Dr. Edward GillDIAGNOSIS:CommentMercy Health Defiance HospitalComment on above:Result Comment: NEGATIVE FOR INTRAEPITHELIAL LESION OR MALIGNANCY. Performed at: WBPerformed By: #### [id number] ####[facility] [address] [address]Dr. Edward GillHPV AptimaNegativeNormal NegativeUniversity Hospitals Health SystemComment on above:Result Comment: This nucleic acid amplification test detects fourteen high-risk HPV types (16,18,31,33,35,39,45,51,52,56,58,59,66,68) without differentiation. Performed at: =GPerformed By: #### [id number] ####[facility] Lqrtndlqje[address] [place], [place] [address]Dr. Edward GillMethodology:CommentMercy Health Defiance HospitalComcorewell health big rapids hospital on above:Result Comment: This liquid based ThinPrep(R) pap test was screened with the use of an image guided system. Performed at: WBPerformed By: #### [id number] ####[facility] Ngqhesgfrn[address] [place], [place] [address]Dr. Edward GillNote:CommentDoctors Hospital on above:Result Comment: The Pap smear is a screening test designed to aid in the detection of premalignant and malignant conditions of the uterine cervix. It is not a diagnostic procedure and should not be used as the sole means of detecting cervical cancer. Both false-positive and false-negative reports do occur. . Performed at: WBPerformed By: #### [id number] ####[facility] Cjsigmniqy9[address] [place], [place] [address]Dr. Edward ChangPerformed by:CommentDoctors Hospital on above:Result Comment: Zenaida Diop, Back Up Worker (ASCP) Performed at: WBPerformed By: #### [id number] ####[facility] Epntaqzotc[address] [place], [place] [address]Dr. Edward GillSpecimen adequacy:Comment NormalOhioHealth Hardin Memorial Hospital on above:Result Comment: Satisfactory for evaluation. No endocervical component is identified. Performed at: WBPerformed By: #### [id number] ####[facility] Atgkwudarg[address] [place], [place] [address]Dr. Edward GillCHLAMYDIA/GONOCOCCUS LELO (SWAB/URINE/PAPon 40-55-8454Hcoyxspej trachomatis, NAANegativeNormalNegativeOhioHealth Hardin Memorial Hospital on above:Performed By: #### CT/NGNA ####[facility] Wbkgrnnoai[address] [place], [place] [address]Dr. Edward Gill Neisseria gonorrhoeae, NAANegativeNormalNegativeThe [facility] HospitalComment on above:Performed By: #### CT/NGNA ####[facility] [address] [address]Dr. Edward GillVAGINITIS/VAGINOSIS DNA PROBEon 18-32-3067Blmxqnf speciesNegativeNormalNegativeUniversity Hospitals Health SystemComment on above:Performed By: #### VAGINT ####[facility] [address] [address]Dr. Edward JairoGardnerella vaginalisNegativeNormal NegativeUniversity Hospitals Health SystemComment on above:Performed By: #### VAGINT ####[facility] [address] [address]Dr. hermelindo GillTrichomonas vaginalisNegativeNormalNegativeUniversity Hospitals Health System Comment on above:Performed By: #### VAGINT ####[facility] [address]ik[address] [address]Dr. Edward GillTucson Medical Center 23-41-3766VTH6.536 uIU/mLNormal0.358-3.740University Hospitals Health SystemComment on above:Performed By: #### TSH ####[facility] Haoywysjsp[address] [place], [place] [address]Dr. Edward GillGLUCOSE - 1HRon 14-86-5764Skuevny [Mass/Vol]160 mg/dLCritically high 74-106University Hospitals Health SystemComment on above:Performed By: #### GLU1HR ####[facility] Ohbdwdkwmy[address] [place], [place] [address]Dr. Edward GillTucson Medical Center 38-48-3637TLI9.899 uIU/mLNormal0.358-3.740[facility] Comment on above:Performed By: #### HIV12 #### [facility] [address] [address] [address] Edward Garcia, Maternalon 29-70-9604Khbugiquht byUltAdventist Health Columbia GorgeComment on above:Performed By: #### AAFPM #### [facility] [address] [place] [address] C Software Developer: Pancho Cano MD [facility] [address] [place] [address] C Software Developer: Yosvany ArriagaNationwide Children's HospitalComment on above:Result Comment: Results for Estimated Due Date: 05 13 22Performed By: #### AAFPM #### [facility] [address] [place] [address] C Software Developer: Pancho Cano MD [facility] [address] [place] [address] C Software Developer: Zhang Bledsoe MDMarietta Memorial HospitalComment on above:Performed By: #### AAFPM #### [facility] [address] [place] [address] C Software Developer: Pancho Cano MD [facility] [address] [place] [address] C Software Developer: Zhang Bledsoe MDGestat Age (exact)15 wks, 2 daysWestern Reserve HospitalComment on above:Performed By: #### AAFPM #### [facility] [address] [place] [address] C Software Developer: Pancho Cano MD [facility] [address] [place] [address] C Software Developer: Zhang Bledsoe MDSaint Luke Institute ReUniversity Hospitals Geauga Medical CenterComment on above:Performed By: #### AAFPM #### [facility] [address] [place] [address] C Software Developer: Pancho Cano MD [facility] [address] [place] [address] C Software Developer: Zhang Bledsoe MDInterpretationScreen NegWestern Reserve HospitalComment on above:Result Comment: (NOTE) INTERPRETATION: SCREEN NEGATIVE for open spina bifida Neural Tube Defects (NTD) Negative Pre-Test Post-Test Cutoff Neural Tube Defects Risks 1:1030 1:2690 1:250 Comments: The risk of an open neural tube defect is less than the screening cut-off. This test was developed and its performance characteristics determined by [employer]. It has not been cleared or approved by the [place] Food and Drug Administration. This test was performed in a CLIA certified laboratory and is intended for clinical purposes.Performed By: #### AAFPM #### [address] [address] C Software Developer: Pancho Cano MD [address] [id number] C Software Developer: Osmar Arriagaternal Age at Del36.6 yrWestern Reserve HospitalComment on above:Performed By: #### AAFPM #### [address] [address] C Software Developer: Pancho Cano MD [address] [id number] C Software Developer: Osmar Arriagawestlake outpatient medical center RaceNonblackNormElyria Memorial HospitalComment on above:Performed By: #### AAFPM #### [address] [address] C Software Developer: Pancho Cano MD [address] [id number] C Software Developer: Osmar Arriagawestlake outpatient medical center Ukozeh854.0 lbs.Western Reserve HospitalComment on above:Performed By: #### AAFPM #### [address] [address] C Software Developer: Pancho Cano MD [address] [address] C Software Developer: BAKARI Arriaga for AFP1.52NormalMercy Chesterbrook Medical CenterComment on above:Performed By: #### AAFPM #### [facility] [address] [address] C Software Developer: Pancho Cano MD [address] [id number] C Software Developer: Zhang Bledsoe MDNumber of FetusesSingletonWestern Reserve HospitalComment on above:Performed By: #### AAFPM #### [address] [address] C Software Developer: Pancho Cano MD [address] [id number] C Software Developer: Zhang Bledsoe E[facility] NORTH ALABAMAamy'jaylan AFP35 /[facility] AndersonComment on above:Performed By: #### AAFPM #### [address] [address] C Software Developer: Pancho Cano MD [address] [id number] C Software Developer: NIKITA ArriagaSt. Rita's Hospital Comment on above:Performed By: #### AAFPM #### [address] [address] C Software Developer: Pancho Cano MD [address] [phone] C Software Developer: NIKITA Arriagacoulee medical centerZoTriHealth Good Samaritan HospitalComment on above:Result Comment: (NOTE) Initial sample Performed by [facility] [id number] www.[email or web address], Yayo Moncada MD, PHD, Lab. DirectorPerformed By: #### AAFPM #### [address] [address] C Software Developer: Pancho Cano MD [address] [place] [address] C Software Developer: Zhang Bledsoe MDAFP, Maternalon 92-72-5064Atedigt SmokingPeoples HospitalComment on above:Performed By: #### AAFPM #### [address] [address] C Software Developer: Pancho Cano MD [facility] [address] [place] [address] C Software Developer: SHIVA ArriagaEast Liverpool City Hospital Comment on above:Performed By: #### AAFPM #### [address] [address] C Software Developer: Pancho Cano MD [address] [address] C Software Developer: SHIVA ArriagaUniversity Hospitals Geauga Medical Center Comment on above:Performed By: #### AAFPM #### [address] [address] C Software Developer: Pancho Cano MD [address] [address] C Software Developer: Vangie Arriaga EggINFORMATION NOT PROVIDEDWestern Reserve HospitalComment on above:Performed By: #### AAFPM #### [address] [address] C Software Developer: Pancho Cano MD [address] [address] C Software Developer: Zhang Bledsoe MDEstimated Due [id number] Reserve HospitalComment on above:Performed By: #### AAFPM #### [address] [address] C Software Developer: Pancho Cano MD [address] [address] C Software Developer: Danelle Arriagatempleton developmental center HistoryNegativeWestern Reserve HospitalComment on above:Performed By: #### AAFPM #### [facility] [address] [place] [address] C Software Developer: Pancho Cano MD [facility] [address] [place] [address] C Software Developer: Zhang Bledsoe MDIn [facility] FertalizatINFORMATION NOT PROVIDEDMercy Mccune-Brooks Hospitalal Kettering Health Washington TownshipComment on above:Performed By: #### AAFPM #### [facility] [address] [place] [address] C Software Developer: Pancho Cano MD [facility] [address] [place] [address] C Software Developer: Zhang Bledsoe MDPACIFIC CHRISTIAN HOSPITAL [id number] Reserve HospitalComment on above:Performed By: #### AAFPM #### [facility] [address] [place] [address] C Software Developer: Pancho Cano MD [facility] [address] [place] [address] C Software Developer: Osmar Arriagaternal [id number] Reserve HospitalComment on above:Performed By: #### AAFPM #### [facility] [address] [place] [address] C Software Developer: Pancho Cano MD [facility] [address] [place] [address] C Software Developer: Osmar Arriagaternal Ghtpdv502NoeimxMreqsWestern Reserve HospitalComment on above:Performed By: #### AAFPM #### [facility] [address] [place] [address] C Software Developer: Pancho Cano MD [facility] [address] [place] [address] C Software Developer: BAKARI Arriagaonochorionic TwinsSt. John of God HospitalComment on above:Performed By: #### AAFPM #### [facility] [address] [place] [address] C Software Developer: Pancho Cano MD [facility] [address] [place] [address] C Software Developer: GLADYS Arriagaatiallyssa Weight UnitsLBSNoHighland District HospitalComment on above:Performed By: #### AAFPM #### [facility] [address] [place] [address] C Software Developer: Pancho Cano MD [facility] [address] [place] [address] C Software Developer: Darci Arriaga (Maternal)WHITEWestern Reserve HospitalComment on above:Performed By: #### AAFPM #### [facility] [address] [place] [address] C Software Developer: Pancho Cano MD [address] [address] C Software Developer: LUIS Arriagaepeat SpecimenINFORMATION NOT PROVIDEDUpper Valley Medical CenterComment on above:Performed By: #### AAFPM #### [facility] [address] [place] [address] C Software Developer: Pancho Cano MD [facility] [address] [place] [address] C Software Developer: Zhang Bledsoe MDValproic/CarbamazepINFORMATION NOT [facility]. Vincent Medical CenterComment on above:Performed By: #### AAFPM #### [facility] [address] [place] [address] C Software Developer: Pancho Cano MD [facility] [address] [place] [address] C Software Developer: JIMENEZ Arriaga Single Marker Scrn, Maternal, Serumon 54-20-6130SawYawazlPhoenixville HospitalCarrier Study Non-ProMedicaon 83-35-5674FxrNbsmlyPhoenixville Hospital MISCELLANEOUS TESTINGon 13-57-1209Bwqq Out ReportFWD TO HORIZON TRK 5848 6234 9819BON SECCENTERVILLETest NameNATERA HORIZONBON SECOURS MERCY HEALTH WILLARD HOSPITALBON SECOURS MERCY HEALTH WILLARD HOSPITALMiscellaneouson 38-61-3256Ttmu Out ReportFWD TO [facility] TRK 5848 6234 9819Western Reserve HospitalComment on above:Performed By: #### CMIS #### [address] [id number] C Software Developer: Shania Choi [facility] Health Atrium Medical CenterComment on above:Performed By: #### CMIS #### [address] [address] C Software Developer: SYLVESTER ChoiP B SURFACE ANTIGEN SCREENon 04-45-8551MPmQa ScreenNegativeNormalNegativeThe [facility] HospitalComment on above:Performed By: #### HIV12 #### [facility] [address] [address] [address] Edward Dahl C VIRUS AB W/ REFLEX QUANTon 40-46-2450VKR AB<0.1Normal 0.0-0.9The [facility] HospitalComment on above:Performed By: #### HCVPCRR ####[facility] [address] [address]Dr. Edward GillInterpretation:CommentNormalThSt. Vincent HospitalComment on above: Result Comment: Negative Not infected with HCV, unless recent infection is suspected or other evidence exists to indicate HCV infection.Performed By: #### HCVPCRR ####[facility] [address]eb[address] [address]Dr. Yilan ChangHIV 1 AND 2 WITH REFLEXon 13-93-3857LFO Screen 4th Generation wRfx Non-ReactiveNormalNon ReactiveThe [facility] HospitalComment on above:Result Comment: HIV Negative HIV-1/HIV-2 antibodies and HIV-1 p24 antigen were NOT detected. There is no laboratory evidence of HIV infection.Performed By: #### HIV12 #### [facility] [address] [place] [address] Dr. Edward GillRPR QUANTon 14-37-4456Mttiw Plasma Reagin, QuantNon-Reactive NormalNonRea<1:1The [facility] HospitalComment on above:Result Comment: Please Note: This test does not meet current guidelines for screening and diagnosis of syphilis. This test is intended for following treatment response in patients being treated for syphilis infection. To screen for syphilis infection, a reflex cascade that includes both RPR and a treponema-specific assay should be utilized, such as Treponema pallidum (Syphilis) Screening [place] (591472) or Rapid Plasma Reagin (RPR) Test With Reflex to Quantitative RPR and Confirmatory Treponema pallidum Antibodies (158320).Performed By: #### RPRQ ####[facility] [address] [address]DrLazara GillRUBELLA AB IGG on 03-71-2869Zlpxbic Antibodies, IgG1.02 indexNormalImmune >0.99The [facility] HospitalComment on above:Result Comment: Non-immune <0.90 Equivocal 0.90 - 0.99 Immune >0.99Performed By: #### RUBIGG ####[facility] [address] [address]DrLazara GillCBC AUTO DIFFon 59-72-3962VYDY # 0.0 103/ulNormal0.0-0.1The [facility] HospitalComment on above:Performed By: #### HIV12 #### [facility] [address] [place] [address] Dr. Edward GillBasophils/100 WBC (Bld)0.3 %Normal0.2-2.0[facility] Comment on above:Performed By: #### HIV12 #### [facility] [address] [place] [address] Dr. Edward Traore #0.1 103/ulNormal0.0-0.7The [facility] Po[facility] HospitalComment on above: Performed By: #### HIV12 #### [facility] [address] [place] [address] Dr. Edward Calhounosinophils/100 WBC (Bld)0.6 %Critically low0.9-7.0The [facility] HospitalComment on above:Performed By: #### HIV12 #### [facility] [address] [place] [address] Dr. Edward Calhounrythrocyte distribution width (RBC) [Ratio]14.1 %Qnhexo99.0-15.0 The [facility] HospitalComment on above:Performed By: #### HIV12 #### [facility] [address] [place] [address] Dr. Edward GillHematocrit (Bld) [Volume fraction]36.2 %Othmod33.0-48.0The [facility] HospitalComment on above:Performed By: #### HIV12 #### [facility] [address] [place] [address] Dr. Edward GillHemoglobin (Bld) [Mass/Vol]12.5 g/bLNwiuni44.0-16.0The [facility] HospitalComment on above:Performed By: #### HIV12 #### [facility] [address] [place] [address] Dr. Edward Ray #0.05 10e3/ulCritically high0.00-0.03The [facility] Comment on above:Performed By: #### HIV12 #### [facility] [address] [place] [address] Dr. Edward Ray %0.4 %Normal0.0-0.5The [facility] HospitalComment on above: Performed By: #### HIV12 #### [facility] [address] [place] [address] Dr. Edward Velásquez #2.7 103/ulNormal1.2-3.8The [facility] HospitalComment on above:Performed By: #### HIV12 #### [facility] [address] [place] [address] Dr. Edward Ronmphocytes/100 WBC (Bld)23.2 %Sfqlol86.5-60.0The [facility] HospitalComment on above:Performed By: #### HIV12 #### [facility] [address] [place] [address] Dr. Edward Antony DIFF REQNONormalThe [facility] HospitalComment on above: Performed By: #### HIV12 #### [facility] [address] [place] [address] Dr. Edward June (RBC) [Entitic mass]30.6 moIpuufx53.7-34.0The [facility] HospitalComment on above:Performed By: #### HIV12 #### [facility] [address] [place] [address] Dr. Edward June (RBC) [Mass/Vol]34.5 g/dUQbrkwo66.9-35.2The [facility] HospitalComment on above:Performed By: #### HIV12 #### [facility] [address] [place] [address] Dr. Edward Desai (RBC) [Entitic vol]88.7 nEKfbram43.0-99.0The [facility] HospitalComment on above:Performed By: #### HIV12 #### [facility] [address] [place] [address] Dr. Edward Rosas #0.7 103/ulNormal0.3-0.8The [facility] HospitalComment on above:Performed By: #### HIV12 #### [facility] [address] [place] [address] Dr. Edward Ignacioocytes/100 WBC (Bld)5.8 %Normal1.7-12.0[facility] Comment on above:Performed By: #### HIV12 #### [facility] [address] [place] [address] Dr. Edward Guevara #8.0 103/ulCritically high1.4-6.5The [facility] Comment on above:Performed By: #### HIV12 #### [facility] [address] [place] [address] Dr. Edward Moralesutrophils/100 WBC (Bld)69.7 %Rqvwwc01.0-75.0The [facility] HospitalComment on above:Performed By: #### HIV12 #### [facility] [address] [place] [address] Dr. Edward GillPlatelet mean volume (Bld) [Entitic vol]9.3 fLCritically low 9.5-13.5The [facility] HospitalComment on above:Performed By: #### HIV12 #### [facility] [address] [place] [address] Dr. Edward GillPLT338 103/rwTelhsc608-454Uyl [facility] HospitalComment on above: Performed By: #### HIV12 #### [facility] [address] [place] [address] Dr. Edward GillRBC4.08 106/ulCritically low4.20-5.40The [facility] HospitalComment on above:Performed By: #### HIV12 #### [facility] [address] [place] [address] Dr. Edward GillWBC11.4 103/ulCritically high4.0-11.0The [facility] HospitalComment on above:Performed By: #### HIV12 #### [facility] [address] [place] [address] Dr. Edward GillCULTURE URINEon 65-37-3251VUBOFOV URINECulture Observations: LIGHT GROWTH OF MIXED GENITAL MARTHA. NO POTENTIAL PATHOGENS SEEN.NormalThe [facility] HospitalComment on above:Performed By: #### URCX #### [facility] [address] [place] [address] Dr. Edward GillGLYCOHEMOGLOBIN A1Con 36-90-3481MFF RECOMMENDATIONSEE BELOWNormal The [facility] HospitalComment on above:Result Comment: ADA RECOMMENDED LIMIT 4.0 - 6.0 ADA THERAPEUTIC TARGET < 7.0 ACTION SUGGESTED > 7.0Performed By: #### A1C #### [facility] [address] [place] [address] Dr. Edward GillGlucose [Mass/Vol]117 mg/dLNoCleveland ClinicComment on above:Performed By: #### A1C #### [facility] [address] [place] [address] Dr. Edward GillHbA1c (Bld) [Mass fraction]5.7 %Normal4.5-6.2The [facility] HospitalComment on above:Performed By: #### A1C #### [facility] [address] [place] [address] Dr. Edward Nair BOX TEST PT SEND OUTon 24-40-6206MHXO TO REF LAB10/25/2021 NormalThe [facility] HospitalComment on above:Performed By: #### HIV12 #### [facility] [address] [place] [address] Dr. Edward SepulvedaHodru 00-28-1843RZI5.700 uIU/mLNormal0.358-3.740The [facility] HospitalComment on above:Performed By: #### TSH ####[facility] [address] [place], [place] [address]Dr.Yilan GillTYPE AND SCREEN on 00-10-5527AKBS AND SCREENNegativeNoCleveland ClinicComment on above: Performed By: #### TNS ####[facility] [address] [place], [place] [address]Dr.Yilan GillUS PREG TVon 48-65-0368KU PREG TV EXAMINATION: US PREG TV HISTORY: [...] Electronically authenticated by: HUMERA KIM Date: 2021-09-23 10:27[facility] HospitalPRE QUANT HCGon 50-33-4925XSP FLDSJ6340 mIU/mLNormalUniversity Hospitals Health SystemComment on above:Performed By: #### HIV12 #### [facility] [address] [place] [address] Dr. Edward GillMEM[facility]IAL [facility] RANGES BELOWMercy Health Defiance HospitalComment on above: Result Comment: 5-50 0-1 WEEK 40-300 1-2 WEEKS 100-1,000 2-3 WEEKS 500-6,000 3-4 WEEKS 5,000-200,000 1-2 MONTHS 10,000-100,000 2-3 MONTHS 3,000-50,000 2ND TRIMESTER 1,000-50,000 3RD TRIMESTERPerformed By: #### HIV12 #### [facility] [address] [place] [address] Dr. Edward GillCHEMISTRYOrdered By: SYSTEM SYSTEM on 73-24-2987Cjjfj gap [Moles/Vol]15 mmol/LNormal6 - 16 mEq/LFTMC RemisolCalcium [Mass/Vol]9.5 mg/dL Normal8.9 - 11.1 mg/dLFTMC RemisolChloride [Moles/Vol]102 mmol/LStoydk027 - 111 mmol/LFTMC RemisolCO2 [Moles/Vol]22 mmol/ENltwzt28 - 31 mmol/LFTMC Remisol Creatinine [Mass/Vol]0.9 mg/dLNormal0.5 - 1.3 mg/dLFTMC RemisolGFR/1.73 sq M.predicted among blacks MDRD (S/P/Bld) [Vol rate/Area]mL/min/1.73 p3Jkgxgg >=59mL/min/1.73 m2FT Chem SGFR/1.73 sq M.predicted among non-blacks MDRD (S/P/Bld) [Vol rate/Area]mL/min/1.73 y0Feqrnu>=59mL/min/1.73 m2[facility] Chem S Glucose [Mass/Vol]85 mg/eGUejxnu15 - 199 mg/dLFT RemisolPotassium [Moles/Vol] 3.9 mmol/LNormal3.5 - 5.3 mmol/LFTMC RemisolSodium [Moles/Vol]135 mmol/LNormal 135 - 145 mmol/LFTMC RemisolUrea nitrogen [Mass/Vol]6 mg/dLNormal5 - 21 mg/dL [facility] RemisolUrea nitrogen/Creatinine [Mass ratio]7 mg/mgLow10 - 20FT Remisol HEMATOLOGYOrdered By: [employer] on 14-65-0221Mgcmneeki/100 WBC (Bld)0.5 % Normal0.0 - 2.0 %[facility] HemeAutoSSBasophils/Leukocytes Auto (Bld) [Pure # fraction]0.0 E9/LNormal0.0 - 0.2 E9/LFTMC HemeAutoSSEosinophils/100 WBC (Bld)0.6 %Normal0.0 - 8.0 %FT HemeAutoSSEosinophils/Leukocytes Auto (Bld) [Pure # fraction]0.1 E9/LNormal0.0 - 0.5 E9/LFTMC HemeAutoSSLymphocytes/100 WBC (Bld) 36.8 %Obrmbi90.0 - 50.0 %[facility] HemeAutoSSLymphocytes/Leukocytes Auto (Bld) [Pure # fraction]2.9 E9/LNormal1.0 - 4.0 E9/LFTMC HemeAutoSSMonocytes/100 WBC (Bld)8.7 %Normal4.0 - 14.0 %[facility] HemeAutoSSMonocytes/Leukocytes Auto (Bld) [Pure # fraction]0.7 E9/LNormal0.2 - 1.0 E9/LFTMC HemeAutoSSNeutrophils/100 WBC (Bld) 53.4 %Pveeie04.0 - 75.0 %[facility] HemeAutoSSNeutrophils/Leukocytes Auto (Bld) [Pure # fraction]4.2 E9/LNormal2.0 - 7.5 E9/LFTMC HemeAutoSSHEMATOLOGYOrdered By: Isha Yates on 21-67-4773Inruxbmdjel distribution width (RBC) [Ratio]14.6 %High10.9 - 14.2 %[facility] HemeAutoSSHematocrit (Bld) [Volume fraction]36.4 %Normal 34.0 - 46.0 %[facility] HemeAutoSSHemoglobin (Bld) [Mass/Vol]12.6 g/xQTmnihm18.0 - 16.0 gm/dLFTMC HemeAutoSSMCH (RBC) [Entitic mass]29.9 gqQxxtxx34.0 - 34.0 pgFTMC HemeAutoSSMCHC (RBC) [Mass/Vol]34.6 g/wWGzyayk05.4 - 36.0 gm/dLFTMC HemeAutoSS MCV (RBC) [Entitic vol]86.6 fHTxemkt73.0 - 100.0 fLFTMC HemeAutoSSPlatelet mean volume (Bld) [Entitic vol]8.2 fLNormal6.4 - 10.8 fLFTMC HemeAutoSSPlatelets (Bld) [#/Vol]367.0 E9/NWmrubl174.0 - 500.0 E9/LFTMC HemeAutoSSRBC (Bld) [#/Vol] 4.2 E12/LLow4.3 - 5.9 E12/LFTMC HemeAutoSSWBC corrected for nucl RBC Auto (Bld) [#/Vol]7.9 E9/LNormal4.0 - 11.0 E9/LFTMC HemeAutoSSPREG QUANT HCGon 08-29-2021 HCG UHWFB011 mIU/mLNormalUniversity Hospitals Health SystemComment on above:Performed By: #### PREGQNT ####[facility] [address] [address]Dr. Leon ChangHCG [facility] HospitalComment on above:Result Comment: 5-50 0-1 WEEK 40-300 1-2 WEEKS 100-1,000 2-3 WEEKS 500- 6,000 3-4 WEEKS 5,000-200,000 1-2 MONTHS 10,000-100,000 2-3 MONTHS 3,000-50,000 2ND TRIMESTER 1,000-50,000 3RD TRIMESTERPerformed By: #### PREGQNT ####[facility] [address] [place] [address] Edward GillPREWily QUANT HCGon 77-71-5420STH QUANT99 mIU/mLNormalUniversity Hospitals Health SystemComment on above:Performed By: #### HIV12 #### [facility] [address] [place] [address] Dr. Edward Lim [facility] H[facility]ITALARMAND [facility] Mary HospitalComment on above: Result Comment: 5-50 0-1 WEEK 40-300 1-2 WEEKS 100-1,000 2-3 WEEKS 500-6,000 3-4 WEEKS 5,000-200,000 1-2 MONTHS 10,000-100,000 2-3 MONTHS 3,000-50,000 2ND TRIMESTER 1,000-50,000 3RD TRIMESTERPerformed By: #### HIV12 #### [facility] [address] [place] [address] Dr. Edward Cross QUANT HCGon 11-58-4377KZW QUANT37 mIU/mLNHighland District HospitalComment on above:Performed By: #### PREGQNT ####[facility] [address] [address]Dr. Edward Lim [facility] HospitalComment on above:Result Comment: 5-50 0-1 WEEK 40-300 1-2 WEEKS 100-1,000 2-3 WEEKS 500-6,000 3-4 WEEKS 5,000-200,000 1-2 MONTHS 10,000-100,000 2-3 MONTHS 3,000-50,000 2ND TRIMESTER 1,000-50,000 3RD TRIMESTERPerformed By: #### PREGQNT ####[facility] [address] [place], [place] [address]Dr. Edward GillCHEMISTRYOrdered By: SYSTEM SYSTEM on 28-48-7747Mdlgnre [Mass/Vol]4.5 g/dLNormal3.3 - 5.0 gm/dLFTMC Remisol Albumin/Globulin [Mass ratio]1.2 {ratio}Normal1.1 - 2.2FT[facility] RemisolALP [Catalytic activity/Vol]53 [iU]/yWnfoxo06 - 98 Int._Unit/LFTMC RemisolALT No additional P-5'-P [Catalytic activity/Vol]24 [iU]/dNormal6 - 46 Int._Unit/LFTMC RemisolAnion gap [Moles/Vol]13 mmol/LNormal6 - 16 mEq/LFTMC RemisolAST [Catalytic activity/Vol]20 [iU]/dNormal5 - 43 Int._Unit/LFTMC RemisolBilirubin [Mass/Vol]0.6 mg/dLNormal0.0 - 1.1 mg/dLFTMC RemisolCalcium [Mass/Vol]9.4 mg/dL Normal8.9 - 11.1 mg/dLFTMC RemisolChloride [Moles/Vol]97 mmol/OZvy371 - 111 mmol/LFTMC RemisolCO2 [Moles/Vol]24 mmol/RScjyzn52 - 31 mmol/LFTMC Remisol Creatinine [Mass/Vol]0.8 mg/dLNormal0.5 - 1.3 mg/dLFTMC RemisolGFR/1.73 sq M.predicted among blacks MDRD (S/P/Bld) [Vol rate/Area]mL/min/1.73 f8Tigyot >=59mL/min/1.73 m2FT Chem SGFR/1.73 sq M.predicted among non-blacks MDRD (S/P/Bld) [Vol rate/Area]mL/min/1.73 h0Cszomn>=59mL/min/1.73 m2FT Chem S Globulin (S) [Mass/Vol]3.7 g/dLNormal1.4 - 4.0 gm/dLFTMC RemisolGlucose [Mass/Vol]74 mg/gMFzzhgv25 - 199 mg/dLFTMC RemisolMagnesium [Mass/Vol]2.0 mg/dL Normal1.3 - 2.4 mg/dLFTMC RemisolPotassium [Moles/Vol]3.5 mmol/LNormal3.5 - 5.3 mmol/LFTMC RemisolProtein [Mass/Vol]8.2 g/dLHigh6.0 - 7.8 gm/dLFTMC Remisol Sodium [Moles/Vol]130 mmol/OPue752 - 145 mmol/LFTMC RemisolTSH Qn4.56 m[IU]/L Normal0.34 - 5.60 mcIU/mLFTMC RemisolUrea nitrogen [Mass/Vol]7 mg/dLNormal5 - 21 mg/dLFTMC RemisolUrea nitrogen/Creatinine [Mass ratio]9 mg/mgLow10 - 20FTMC RemisolHEMATOLOGYOrdered By: [employer] SYSTEM on 56-91-5514Djfimgchf/100 WBC (Bld) 0.3 %Normal0.0 - 2.0 %[facility] HemeAutoSSBasophils/Leukocytes Auto (Bld) [Pure # fraction]0.0 E9/LNormal0.0 - 0.2 E9/LFTMC HemeAutoSSEosinophils/100 WBC (Bld)0.5 %Normal0.0 - 8.0 %[facility] HemeAutoSSEosinophils/Leukocytes Auto (Bld) [Pure # fraction]0.0 E9/LNormal0.0 - 0.5 E9/LFTMC HemeAutoSSLymphocytes/100 WBC (Bld) 35.9 %Xgkebt20.0 - 50.0 %[facility] HemeAutoSSLymphocytes/Leukocytes Auto (Bld) [Pure # fraction]3.2 E9/LNormal1.0 - 4.0 E9/LFTMC HemeAutoSSMonocytes/100 WBC (Bld)8.8 %Normal4.0 - 14.0 %[facility] HemeAutoSSMonocytes/Leukocytes Auto (Bld) [Pure # fraction]0.8 E9/LNormal0.2 - 1.0 E9/LFTMC HemeAutoSSNeutrophils/100 WBC (Bld) 54.5 %Msozes07.0 - 75.0 %[facility] HemeAutoSSNeutrophils/Leukocytes Auto (Bld) [Pure # fraction]4.8 E9/LNormal2.0 - 7.5 E9/LFTMC HemeAutoSSHEMATOLOGYOrdered By: Trena Castro on 85-86-0456Vylpcwvomer distribution width (RBC) [Ratio]14.1 % Xtqglm05.9 - 14.2 %[facility] HemeAutoSSHematocrit (Bld) [Volume fraction]38.5 %Normal 34.0 - 46.0 %[facility] HemeAutoSSHemoglobin (Bld) [Mass/Vol]13.1 g/zVIpuptw67.0 - 16.0 gm/dLFT HemeAutoSSMCH (RBC) [Entitic mass]29.4 nnLmxrre22.0 - 34.0 pgFTMC HemeAutoSSMCHC (RBC) [Mass/Vol]34.1 g/xCXslqfr68.4 - 36.0 gm/dLFT HemeAutoSS MCV (RBC) [Entitic vol]86.0 fSVsesdp31.0 - 100.0 fLFT HemeAutoSSPlatelet mean volume (Bld) [Entitic vol]8.3 fLNormal6.4 - 10.8 fLFT HemeAutoSSPlatelets (Bld) [#/Vol]334.0 E9/CBcsebf086.0 - 500.0 E9/LFTMC HemeAutoSSRBC (Bld) [#/Vol] 4.5 E12/LNormal4.3 - 5.9 E12/LFC HemeAutoSSWBC corrected for nucl RBC Auto (Bld) [#/Vol]8.9 E9/LNormal4.0 - 11.0 E9/LFTULSA ER & [facility] [place] HemeAutoSSOB/TOOL FILER HAND - Office Visiton 57-87-0295XZ/TOOL FILER HAND - Office VisitChief ComplaintComplains of: heavy bleeding Declines ryan, Susie Salomon CMA History of Present IllnessKatkimberly [...] stroke 07/2017 PSH as above POB- 2007 [id number] 17week loss subchorionic h ivdnarofh3616 39weeks bleeding at 5weeks for 2 weeks diet 9215-7702 calories exercise none 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 Review [...] History History of Oral Surgery Tooth Extraction [place] Tooth Family History No pertinent family history Family history of cerebrovascular accident (CVA) (V17.1) (Z82.3) Family history of diabetes mellitus (V18.0) (Z83.3) Family history of cerebrovascular accident (CVA) (V17.1) (Z82.3) Family history of cerebrovascular accident (CVA) (V17.1) (Z82.3) Allergies No Known Drug Allergies Recorded By: Susie Salomon; 11/08/2017 4:19:42 PM Current Meds Ciprofloxacin HCl - 500 MG Oral Tablet;Ther apy: 44Xyu5484 to Recorded Dispense: 0 Days ; #: Sufficient Tablet; Refill: 0; BUBBA = N; Record; Last Updated By: Susie Salomon; 11/08/2017 4:19:42 PM Plavix 75 MG Oral Tablet;Therapy: 87Kns1713 to Recorded Dispense: 0 Days ; #: Sufficient Tablet; Refill: 0; BUBBA = N; Record; Last Updated By: Susie Salomon; 11/08/2017 4:19:42 PM Provera 10 MG Oral Tablet;Therapy: 87Nug8803 to Recorded Dispense: 0 Days ; #: Sufficient Tablet; Refill: 0; BUBBA = N; Record; Last Updated By: Susie Salomon; 11/08/2017 4:19:42 PM Vitals Vital Signs Recorded: 08Nov2017 04:72QCOgwmtxex514Nhppcejrv85Bryijf2 ft 6 uqGwskjh657 lb BMI Qkurkfdosu04.57BSA Calculated1.9NLY27Mem3821Qzmz Scale6-7 Physical ExamConstitutional: Alert and in no acute distress. Well developed, well nourished. Head and Face: Head and face: Normal. Psychiatric: Alert and oriented x 3. Affect normal to patient baseline. Mood: Appropriate. Diagnoses/Problems Anemia (285.9) (D64.9) Asthma (493.90) (J45.909) Depression with anxiety (300.4) (F41.8) History of Oral Surgery Tooth Extraction [place] No pertinent family history : Mother [...] GIDeclines STI testing todayWeight gain, offered a die mechanic consult and she declined. Encouraged exercise. Signatures Electronically signed by : RICHARD Ulrich; Nov 12 2017 8:46PM EST (Author)NormalUH TouchworksAntiphospholipid Abs IgG/IgMon 53-01-1443Cxyjsvedjrvmirec Ab-FzD825 GPLCritically high0-14The [facility] Center Of AuroraComment on above:Result Comment: INTERPRETIVE INFORMATION: High- Specificity Antiphospholipid Antibody,IgG14 GPL or less......Mmazkdth32 26 GPL.........Indeterminate Suggest repeat testing in 12 weeks27 GPL or greater. ..PositiveHigh-specificity antiphospholipid IgG and IgM antibodies are directedagainsta mixture of phosphatidylserine, phosphatidic acid, and beta- 2glycoprotein 1antigens. These antibodies are more specific than cardiolipin IgG andIgMantibodies in the diagnosis of antiphospholipid syndrome (APS). Antiphospholipid Ab-IgM6 MPLNormal0-14The [facility] Center Of AuroraComment on above:Result Comment: INTERPRETIVE INFORMATION: High-Specificity Antiphospholipid Antibody,IgM14 MPL or less......Addfrrux30 37 MPL.........Indeterminate Suggest repeat testing in 12 weeks38 MPL or greater. ..PositiveHigh-specificity antiphospholipid IgG and IgM antibodies are directedagainsta mixture of phosphatidylserine, phosphatidic acid, and beta- 2glycoprotein 1antigens. These antibodies are more specific than cardiolipin IgG andIgMantibodies in the diagnosis of antiphospholipid syndrome (APS).Performed by [facility],[address] [place] [id number] zrx.[employer], Zhang Bledsoe MD - Lab. [facility] Miscellaneous test 05-28-2017 Miscellaneous Test 1SUCHealth Broomfield HospitalComment on above: Result Comment: Test name Result [...] Additional information and recommendations for testingmay befound [email or web address]/[email or web address] ndex.html.Performed by [facility],[address] [facility] CenterHordspot [facility] [place] [address] cla.[employer],Zhang Bledsoe MD - Lab. DirectorCardiolipin Antibodies, IgA, IgG, IgMon 81-59-8434Taqzncnfkwe Ab IgA0 APLNormal0-11The [facility] Center Of AuroraComment on above:Result Comment: INTERPRETIVE INFORMATION: Cardiolipin Antibodies, IgA0-11 APL: Lcncorca54-74 APL: In zzprarxofxh90-24 APL: Low to Moderately Dhyboepf96 APL or above: High PositivePerformed by [facility],[address] [facility] [place] [address] iix.[employer], Zhang Bledsoe MD - Lab. DirectorCardiolipin Ab IgG 111 GPLCritically high0-14The [facility] Of AuroraComment on above:Result Comment: INTERPRETIVE INFORMATION: Anti-Cardiolipin IgG Ab0-14 GPL: [id number] 19 GPL: Fdwqswmildlxi38-62 GPL: Low to Moderately Hdnfliji43 GPL or above: High PositiveThe persistent presence [...] other criteria phospholipid antibody tests.Cardiolipin Ab IgM10 MPLNormal0-12The [facility] Center Of AuroraComment on above:Result Comment: INTERPRETIVE INFORMATION: Anti-Cardiolipin IgM0-12 MPL: Dlehkzzw22-90 MPL: Leyawjqxkgjec32-56 MPL: Low to Moderately Wuzirgyc40 MPL or above: High PositiveThe persistent presence [...] and/orothercriteria phospholipid antibody tests.Jennifer-Simpson Virus by PCRon 55-11-1699Rcwiywv Simpson Virus by PCRNot DetectedNoEating Recovery Center a Behavioral Hospital for Children and AdolescentsComment on above:Result Comment: NOT DETECTED - A negative result does not rule out thepresence of PCR inhibitors inthe patient specimen or assayspecific nucleic acid in concentrations below the level ofdetection bythe assay.INTERPRETIVE INFORMATION: Jennifer Simpson Virus by PCRTest developed and characteristics determined by [facility]. SeeCompliance Statement A: [employer]/CSPerformed by [facility],[address] [place] [address] sir.[employer], Zhang Bledsoe MD - Lab. DirectorEpstein Simpson Virus SourceCSFNoEating Recovery Center a Behavioral Hospital for Children and AdolescentsOligoclonal Band Profileon 05-89-9789Qepmpiq8411 mg/xREpymue2402-1430DscykThe Medical Center Of AuroraAlbumin 5.2 ratioNormal0.0-9.0[facility] Of AuroraAlbumin, CSF20 mg/dLNormal 0-35[facility] AuroraCSF IgG Synthesis Rate<0.0Normal<=8.0[facility] Of AuroraCSF Oligoclonal BandsNegativeNormalNegativeThe Medical Center Of AuroraCSF Oligoclonal Bands Number0 BandsNormal0-1MKindred Hospital AuroraGlobulin1060 mg/bOJkeuje046-9654PevjqThe Medical Center Of Aurora Comment on above:Result Comment: REFERENCE INTERVAL: Immunoglobulin GAccess complete set of age- and/or gender-specific reference intervalsforthis test in the [employer] [facility] Test Directory ([employer]).IgG Index0.45 ratioNormal 0.28-0.66[facility] Of AuroraImmunoglobulin G CSF2.5 mg/dLNormal0.0-6.0 [facility] Of AuroraINR Coag RelTime (Bld)0.12 {INR}Normal0.09-0.25 [facility] Of AuroraInterpretationSee NoteNoEating Recovery Center a Behavioral Hospital for Children and AdolescentsComment on above:Result Comment: Isoelectric focusing/immunofixation reveals no oligoclonal bands ineitherthe CSF orthe serum. This is considered to be a negative result foroligoclonal bands. Approximately 5 percentof patients with clinicallydefinitive multiple sclerosis will have a negative result.Performed by [facility],[address] [facility] [place] [address] lzu.[employer], Zhang Bledsoe MD - Lab.DirectorMyelin Basic Protein, CSFon 31-83-1666Kyvlbi Basic Protein1.82 ng/mLNormal0.00-5.50The [facility] Of AuroraComment on above:Result Comment: INTERPRETIVE INFORMATION: Myelin Basic ProteinTest developed and characteristics determined by [facility]. SeeCompliance Statement D: [employer]/CSPerformed by [facility],[address] [facility] [address] ssw.[employer], Zhang Bledsoe MD - Lab. DirectorLOVELACE MED[facility] Miscellaneous test 1on 78-65-1206Efvijuc Prompt 65194JddcdlFmebtEating Recovery Center a Behavioral Hospital for Children and AdolescentsComment on above:Result Comment: Corrected result; [place] [id number] on 05/25/2017 at 13:14 by V/VEE REA Miscellaneous test 1on 47-31-2355Dajojot Amiwmx66436KwlndvVmkigRangely District HospitalComment on above:Result Comment: DS DNACSF Cell Counton 05-25-2017 CSF no diffsee belowRangely District HospitalComment on above:Result Comment: Differential not performed -Total Nucleated cellsCSF AppearanceClear NormalThe Medical Center Of AuroraCSF ColorColorlessRangely District HospitalCSF Tube NumberTube 4NoEating Recovery Center a Behavioral Hospital for Children and AdolescentsFluid Clot Evaluationsee belowRangely District HospitalComment on above:Result Comment: No Clots SeenTotal Nucleated Cells0 K/uLNormal0-8[facility] Of AuroraTotal Red Blood Cells0 K/uLRangely District HospitalCSF Glucose on 21-16-2117TDQ Dqidrhp34 mg/tSGpibhc45-86MdessThe Medical Center Of AuroraCSF Proteinon 59-52-8178NSL Xdbonwg51 mg/mWRkuoph64-46TrvznThe Medical Center Of Aurora Creatine Kinaseon 37-73-1799Mamrkezr kinase (CK)71 U/LNormal0-170The [facility] Center Of AuroraCulture, CSFon 55-67-4750Nciniua, CSFORDER#: [id number] ORDERED BY: HARVEY MONGECE: CSF (Spinal Fluid) CSF COLLECTED: 05/25/17 13:25ANTIBIOTICS AT AMARILYS.: RECEIVED : 05/25/17 13:25Gram Stain Direct FINAL 05/25/17 15:30 No WBC's, No organisms seenCulture, CSF FINAL 05/28/17 09:04 No growth [facility]on 04-89-1630GY LUMBAR PUNCTURE DIAGFL LUMBAR PUNCTURE DIAG : [...] LUMBAR PUNCTURE.Interpreted by:NIKITA Mezaigned by:Humera Covarrubias MD//18Final resultNormalThe Medical Center Of Aurora Homocysteineon 05-90-5609Jqigyncrexst9.1 umol/LNormal0.0-15.0[facility] Of AuroraPartial Thromboplastin Timeon 39-39-9358rAQJ11.7 xMtszdv90.6-35.4 [facility] Of AuroraComment on above:Result Comment: Heparin Therapeutic Range: 38.8 - 54.6 seconds.Prothrombin Timeon 11-47-6222GZE Coag RelTime (PPP)1.0 {INR}NormalThe Medical Center Of AuroraComment on above:Result Comment: Recommended INR therapeutic ranges [...] secProthrombin time (PT) Coag time (PPP) 10.7 sNormal8.1-13.7[facility] Vital Signs Date TimeVital SignValuePerforming LhxjsgbytLyseokkg81-26-3768 09:26-0400Body mass index (BMI) [Ratio]33.98 kg/s9ZylgiRetentionGrid Work Phone: ClasskickVnajfonkzf58-97-5532 09:040Body oxuaxe30.48 kgCoreRetentionGrid Work Phone: Refresh.ioVA Zvddbhzbnm29-78-7993 09:-0400Diastolic blood rtrmytvn97 mm[Hg]Wilton Montez DO Work Phone: [facility] WestRnydxnqelb06-86-1368 09:26-0400Systolic blood orzkiqhh734 mm[Hg]Wilton Montez DO Work Phone: [facility] WestWazyikhmdh98-67-9100 13:44-0400Body npeyzd170.6 cmApreet Callahan MD MPH Work Phone: 1(804)[address]10-20-2025 13:44-0400Body mass index (BMI) [Ratio]33.73 kg/k3MtfyrSam Callahan MD MPH Work Phone: 1(852)[address]10-20-2025 13:44-0400Body qpnbha28.8 kgSam Callahan MD MPH Work Phone: 1(824)[address]10-20-2025 13:44-0400Diastolic blood woxfgymh32 mm[Hg]Sam Callahan MD MPH Work Phone: 1(989)[address] [place], [place] 8047110-20-2025 13:44-0400Heart rate 79 /minSam Callahan MD MPH Work Phone: 1(477)[address] [place], [place] 8047110-20-2025 13:44-0400 Respiratory rate18 /minSam Callahan MD MPH Work Phone: 1(494)[address]10-20-2025 13:44-0400Systolic blood kwzgsrdi604 mm[Hg]Sam Callahan MD MPH Work Phone: 1(397)[address] [place], [place] 8047110-13-2025 10:45-0400Body mass index (BMI) [Ratio]34.12 kg/n6Srdpu Montez DO Work Phone: [facility] WestAylsowoupi79-83-6877 10:45-0400Body klmvla91.89 kgCorey Montez DO Work Phone: [facility] WestHbnxhqfsep94-56-2716 10:45-0400Diastolic blood syyazwyl24 mm[Hg]Wilton Montez DO Work Phone: [facility] WestKsdbwvcohm79-56-1582 10:45-0400Systolic blood zzbxikgb534 mm[Hg]Wilton Montez DO Work Phone: 1(005)013-[address] [place], [place] [address]Hfojlgnzgf99-64-8686 09:30-0400Body mass index (BMI) [Ratio]34.14 kg/p7Ebvjy Montez DO Work Phone: 1(419)162-[address] [place], [place] [address]Bmdjgnxjmr19-63-1167 09:30-0400Body reodio59.94 kgCorey Montez DO Work Phone: 1(419)924-[address] [place], [place] [address]Cghjmohqci76-10-7164 09:30-0400Diastolic blood utnrrnuv46 mm[Hg]Wilton Montez DO Work Phone: 1(419)116-[address] [place], [place] [address]Victnpdalc16-93-4836 09:30-0400Systolic blood oldkjhvw271 mm[Hg]Wilton Montez DO Work Phone: 1(158)[facility] [place] [address]-08-2025 15:14-0400Body mass index (BMI) [Ratio]33.73 kg/t4Rrtaq Montez DO Work Phone: 1(419)[facility] [place] [address]-08-2025 15:14-0400Body qkzubk73.8 kg Wilton Montez DO Work Phone: 1(135)[facility] [place] [address]-08-2025 15:14-0400Diastolic blood mm[Hg]Wilton Montez DO Work Phone: 1(976)[facility] [place] [address]-08-2025 15:14-0400Systolic blood annlfgqn099 mm[Hg]Wilton Montez DO Work Phone: 1(419)[address] [place] [address]-04-2025 14:22-0400Body mass index (BMI) [Ratio]33.89 kg/m5DoxgocxdMukul Noyola MD Work Phone: 1(419)176-[address] [place], [place] 0685609-04-2025 14:22-0400Body zdrcri65.25 kgMukul Noyola MD Work Phone: 1(419)480-[address] [place], [place] 0685609-04-2025 14:22-0400Diastolic blood fdduxevm77 mm[Hg]Mukul Noyola MD Work Phone: 1(419)[address]09-04-2025 14:22-0400Systolic blood ydwszrzj957 mm[Hg]Mukul Noyola MD Work Phone: 1(985)314-[address] [place], [place] [address]2008-26-2025 11:34-0400Body fgvoja970.7 cmKatherine Negrete APRN.MACHINE [employer] WINDER Work Phone: [facility]08-26-2025 11:34-0400Body mass index (BMI) [Ratio]33.57 kg/r9FmjraKatherine Negrete APRN.MACHINE [employer] WINDER Work Phone: [facility]08-26-2025 11:34-0400Body temperature 97.59 [degF]Katherine Negrete APRN.MACHINE [employer] WINDER Work Phone: [facility]08-26-2025 11:34-0400Body ccpsoc31.4 kgKatherine Negrete APRN.MACHINE [employer] WINDER Work Phone: 1(887)3-[address], [place] 5735808-26-2025 11:34-0400Diastolic blood jzrsgmux40 mm[Hg]Katherine Negrete APRN.MACHINE [employer] WINDER Work Phone: [facility]08-26-2025 11:34-0400Heart rate80 /min Katherine Negrete APRN.MACHINE [employer] W[employer]ER Work Phone: [facility]08-26-2025 11:34-0400Respiratory rate 16 /minKatherine Negrete APRN.MACHINE [employer] WINDER Work Phone: [phone] 11:34-6026MmY6% (BldA) [Mass fraction]98 %Katherine Negrete APRN.MACHINE [employer] WINDER Work Phone: [facility]08-26-2025 11:34-0400Systolic blood mdbqhylf785 mm[Hg]Katherine Negrete APRN.MACHINE [employer] WINDER Work Phone: [facility]08-14-2025 09:28-0400Body mass index (BMI) [Ratio]33.41 kg/l6Ltbye Montezyamel RESENDEZ Work Phone: [facility] WestMgrwzvddpr94-22-4548 09:28-0400Body .89 kgCorey Montez DO Work Phone: 1(900)713-[address] [place], [place] [address]Qibfkuabog06-20-7824 09:28-0400Diastolic blood bkygzsgj29 mm[Hg]Wilton Montez DO Work Phone: 1(034)[facility] [place], [place] [address]Pfozqalcty99-58-0806 09:28-0400Systolic blood ehdvixzx552 mm[Hg]Wilton Montez DO Work Phone: 1(372)[facility] [place], [place] [address]Xsqqzihygx14-99-6221 10:53-0400Body mass index (BMI) [Ratio]33.57 kg/m3Ezark Montez DO Work Phone: 1(465)[facility] [place], [place] [address]Lrvzefqpfw30-25-9922 10:53-0400Body facoto40.35 kgCorey Montez DO Work Phone: 1(508)[facility] [place], [place] [address]Rovzbsyrft68-14-2833 10:53-0400Diastolic blood yzomvtzr05 mm[Hg]Wilton Montez DO Work Phone: 1(055)[facility] [place], [place] [address]Jmapenishr73-12-6780 10:53-0400Systolic blood nmltyuav233 mm[Hg]Wilton Montez DO Work Phone: 1(955)[address] [place], [place] 2570307-23-2025 13:07-0400Body mass index (BMI) [Ratio]33.73 kg/h3XukmpdLorena Enciso RN Work Phone: 1(307)246-[address] [place], [place] 0685607-23-2025 13:07-0400Body tfbcce08.8 kgLorena Enciso RN Work Phone: 1(243)[address]07-03-2025 09:32-0400Body mass index (BMI) [Ratio]33.81 kg/b7Rtbcp Montez DO Work Phone: 1(250)[address] [place], [place] 2570307-03-2025 09:32-0400Body zpxojo72.03 kgCorey Montez DO Work Phone: 1(222)[address] [place], [place] 2570307-03-2025 09:32-0400Diastolic blood mm[Hg]Wilton Montez DO Work Phone: 1(527)[facility] [place] [address]-03-2025 09:32-0400Systolic blood ubvsvwey615 mm[Hg]Wilton Herrmann DO Work Phone: [facility] WestApdvzugatg34-55-9818 14:23-0400Body mass index (BMI) [Ratio]33.46 kg/h3SnnkfKatherine Negrete APRN.MACHINE [employer]BIN WINDER Work Phone: [facility]07-01-2025 14:23-0400Body temperature 97 [degF]Katherine Negrete FAMILY PROTECTION SPECIALIST.MACHINE [employer] W[employer]ER Work Phone: [facility]07-01-2025 14:23-0400Body nuyiok01.1 kgKatherine Negrete APRN.MACHINE [employer] WINDER Work Phone: [facility]07-01-2025 14:23-0400Diastolic blood mm[Hg]Katherine Negrete APRN.MACHINE BOBBIN WINDER Work Phone: [facility]07-01-2025 14:23-0400Heart rate82 /min Katherine Negrete APRN.MACHINE B[employer]BIN WINDER Work Phone: [facility]07-01-2025 14:23-0400Respiratory rate 16 /minKatherine Negrete APRN.MACHINE BOBBIN WINDER Work Phone: [facility]07-01-2025 14:23-3085EuO3% (BldA) [Mass fraction]100 %Katherine Negrete APRN.MACHINE BOBBIN WINDER Work Phone: [facility]07-01-2025 14:23-0400Systolic blood mm[Hg]Katherine Negrete APRN.MACHINE BOBBIN WINDER Work Phone: [facility]06-05-2025 14:10-0400Body mass index (BMI) [Ratio]33.89 kg/m2[facility]06-05-2025 14:10-0400Body woojde28.25 kgSaint [facility]06-05-2025 14:10-0400Diastolic blood eclptpko36 mm[Hg][facility]06-05-2025 14:10-0400Systolic blood zqqyfwyw393 mm[Hg][facility]03-27-2025 12:07-0400Body mass index (BMI) [Ratio]34.44 kg/x3Krqjd Montez DO Work Phone: [facility] WestSdrxlhellv14-42-5708 12:07-0400Body hqvdae82.8 kg Wilton Montez DO Work Phone: [facility] WestYshuckvhha85-05-6973 12:07-0400Diastolic blood nlfzoelx39 mm[Hg]Wilton Montez DO Work Phone: [facility] WestLjadgrrojc74-72-1423 12:07-0400Systolic blood mm[Hg]Wilton Montez DO Work Phone: 1([phone] [place], [place] [address]Mtetymsoco82-43-4829 08:27-0500Blood Pressure LocationScott KAPLE [phone]-GwbylCincinnati [facility]03-03-2025 08:27-0500Diastolic blood vgjlmymu50 mm[Hg]Penelope KAPLE 993-1285Pfpwjy-AwurgCincinnati Va Medical Center03-03-2025 08:27-0500Heart rate77 /minScott KAPLE [phone]-LoapnCincinnati Va [facility] Center03-03-2025 08:27-2618MfR7% (BldA) [Mass fraction]99 %Penelope KAPLE 461-5253Zpmjzs-XeusuCincinnati Va Medical Center03-03-2025 08:27-0500Systolic blood mm[Hg]Penelope KAPLE 524-5399Pgncey-PplhcCincinnati Va Medical Center02-24-2025 15:21-0500Body mass index (BMI) [Ratio]34.93 kg/c7Obpxr Montez DO Work Phone: [facility] WestVbuaonilqd05-75-1547 15:21-0500Body peauir45.16 kgCorey Montez DO Work Phone: [facility] WestZwavitscja13-80-2872 15:21-0500Diastolic blood habxyqjf63 mm[Hg]Wilton Montez DO Work Phone: 1(333) 643-375052 [address]yer StreetWecmmapptt49-94-2235 15:21-0500Systolic blood livhedos981 mm[Hg]Wilton Herrmann DO Work Phone: [facility] WestYmkzxdigjg62-55-1767 16:14-0500Blood Pressure LocationJESSICA YEELUISTONY [phone]-HspcgDetwiler Memorial Hospital 06-19-2024 16:14-0500Diastolic blood jwgufamw34 mm[Hg]JESSICA BACA 032-8866Ebzhmp-UikklDetwiler Memorial Hospital 06-19-2024 16:14-0500Heart rate74 /minALFIEANDIE KEVEN 150-3637Nwzqvk-PvxkaDetwiler Memorial Hospital 06-19-2024 16:14-1019IgD1% (BldA) [Mass fraction]100 %JESSICA BACA 824-1188Nzxxit-LqugjDetwiler Memorial Hospital 06-19-2024 16:14-0500Systolic blood bbbmnepz882 mm[Hg]JESSICA BACA 706-6502Libksn-KvndnDetwiler Memorial Hospital 06-09-2024 13:55-0500Blood Pressure LocationScott KAPLE [phone]-MynuwCincinnati Va Medical Center02-10-2025 13:55-0500Diastolic blood xrdooysw66 mm[Hg]Penelope CASAS 177-2056Eylcot-RbgalCincinnati Va Medical Center02-10-2025 13:55-0500Heart rate78 /minScott KAPLE 188-0802Iyysom-JbootCincinnati Va Medical Center02-10-2025 13:55-3752PdY1% (BldA) [Mass fraction]99 %Penelope KAPLE 884-1763Tdbrtc-PbazpCincinnati Va Medical Center02-10-2025 13:55-0500Systolic blood mm[Hg]Penelope CASAS 459-3997Xdifhm-PqilaDayton Va Medical Center Bhfj74-91-5954 11:43-0500Body mass index (BMI) [Ratio]34.51 kg/g9Tsaxt Montez DO Work Phone: [facility] WestMcuhrrbnxw51-85-5442 11:43-0500Body kpbebi96.98 kgCorey Montez DO Work Phone: [facility] WestFydmdvnhsb23-50-9397 11:43-0500Diastolic blood mlneperj12 mm[Hg]Wilton Montez DO Work Phone: [facility] WestEelawugywa43-88-0169 11:43-0500Systolic blood kbcducgo036 mm[Hg]Wilton Montez DO Work Phone: [facility] WestLzqlaxndcx72-01-3605 13:07-0500Body amhciu741.7 cmVramos Calix MD Work Phone: [facility]01-29-2025 13:07-0500Body mass index (BMI) [Ratio]35.02 kg/w3UpoveKristofer Calix MD Work Phone: [facility]01-29-2025 13:07-0500Body temperature 97.59 [degF]Kristofer Calix MD Work Phone: [facility]01-29-2025 13:07-0500Body .5 kgKristofer Calix MD Work Phone: [facility]01-29-2025 13:07-0500Diastolic blood tzmbofyz72 mm[Hg]Kristofer Calix MD Work Phone: [facility]01-29-2025 13:07-0500Heart rate72 /min Kristofer Calix MD Work Phone: [facility]01-29-2025 13:07-0500Respiratory rate 16 /minKristofer Calix MD Work Phone: [facility]01-29-2025 13:07-7616EzF7% (BldA) [Mass fraction]99 %Kristofer Calix MD Work Phone: [facility]01-29-2025 13:07-0500Systolic blood yqodgwux732 mm[Hg]Kristofer Calix MD Work Phone: [facility]01-07-2025 14:40-0500Body mass index (BMI) [Ratio]35.41 kg/p0Ahzyi Montez DO Work Phone: [facility] WestDhwrqakxtm05-97-1738 14:40-0500Body oqvuts45.52 kgCorey Montez DO Work Phone: [facility] WestXjnwbytgwo37-55-1310 14:40-0500Diastolic blood uocsnzgs23 mm[Hg]Wilton Montez DO Work Phone: [facility] WestKtmuojcdke43-54-2212 14:40-0500Systolic blood sswwiokx249 mm[Hg]Wilton Montez DO Work Phone: [facility] WestEcuuteozni67-45-1016 10:57-0500Body mass index (BMI) [Ratio]35.85 kg/m2[facility]12-06-2024 10:57-0500Body eeyboi750.75 kgSaint John's B[facility]ch [facility]10-08-2024 13:29-0400Blood Pressure LocationScott KAPLE [phone]-RsegxCincinnati Va Medical Center10-08-2024 13:29-0400Body ffvhwjrpagn27.06 [degF]Penelope STYLESLE 935-2760Nhmqzl-NxxfiCincinnati Va Medical Center10-08-2024 13:29-0400Diastolic blood hqinltyk14 mm[Hg]Penelope KAPLE 442-0320Jmgmyw-RtrrtCincinnati Va Medical Center10-08-2024 13:29-0400Heart rate76 /minScott KAPLE 163-3522Nelzvy-SiivgCincinnati Va Medical Center10-08-2024 13:29-0400Respiratory rate16 /minScott KAPLE 423-4593Iuxtns-XwzkpCincinnati Va Medical Center10-08-2024 13:29-2754JfC2% (BldA) [Mass fraction]99 %Penelope STEPHANIBEN 306-7161Mlqwiw-GdmueCincinnati Va Medical Center10-08-2024 13:29-0400Systolic blood wbxccydl015 mm[Hg]Penelope CASAS 111-5540Ircqqh-KzyetMarietta Osteopathic Clinic Primary Vqel35-47-5664 14:39-0400Blood Pressure LocationPreeti Gudimella 551-2842Drdquc-Pxnjb[address] [place] [address] [facility]ient Klol07-29-5877 14:39-0400Body laqereniepr93.06 [degF]Anni Gudimella 567-8208Yngofc-Zndwk[address] [place] [address] [facility] Lflb92-26-7711 14:39-0400Diastolic blood voimtxvn68 mm[Hg]Anni Gudimella 108-3175Qlidih-Nwils[address] [place] [address] [employer] Xrux66-31-2882 14:39-0400Heart rate98 /minPreeti Gudimella 069-7589Zxgxyi-Ngbvj[address] [place], [place] 3346110-05-2024 14:39-6182KvU1% (BldA) [Mass fraction]99 %Anni Gudimella 318-7117Mvpdpv-VbarzWyandot Memorial Hospital10-05-2024 14:39-0400Systolic blood cicndyfx955 mm[Hg]Anni Gudimella 342-7476Vudkfu-Btpql[address] [place] [address] [facility]ient Whjg04-43-3418 13:45-0400Body .7 cmVramos Calix MD Work Phone: [facility]09-04-2024 13:45-0400Body mass index (BMI) [Ratio]36.52 kg/i4LqdynKristofer Calix MD Work Phone: [facility]09-04-2024 13:45-0400Body temperature 97.11 [degF]Kristofer Calix MD Work Phone: [facility]09-04-2024 13:45-0400Body zjjvhe110.7 kgKristofer Calix MD Work Phone: [facility]09-04-2024 13:45-0400Diastolic blood mm[Hg]Kristofer Calix MD Work Phone: [facility]09-04-2024 13:45-0400Heart rate91 /min Kristofer Calix MD Work Phone: [facility]09-04-2024 13:45-0400Respiratory rate 16 /minKristofer Calix MD Work Phone: [facility]09-04-2024 13:45-6682HnJ5% (BldA) [Mass fraction]100 %Kristofer Calix MD Work Phone: [facility]09-04-2024 13:45-0400Systolic blood nipyxkod624 mm[Hg]Kristofer Calix MD Work Phone: [facility]08-01-2024 13:40-0400Body temperature 97.7 [degF]Chair Aurora Work Phone: [facility]08-01-2024 13:40-0400Diastolic blood ukujyeqv56 mm[Hg]Chair Stew Work Phone: [facility]08-01-2024 13:40-0400Heart rate75 /min Chair Aurora Work Phone: [facility]08-01-2024 13:40-0400Respiratory rate 16 /minChair Aurora Work Phone: [facility]08-01-2024 13:40-0341OjL3% (BldA) [Mass fraction]99 %Chair Stew Work Phone: [facility]08-01-2024 13:40-0400Systolic blood xdcrcigy945 mm[Hg]Chair Aurora Work Phone: [place] [address]-25-2024 14:00-0400Body temperature 98.2 [degF]Chair Aurora Work Phone: [facility]07-25-2024 14:00-0400Diastolic blood cvbuhgpv30 mm[Hg]Chair Aurora Work Phone: [facility]07-25-2024 14:00-0400Heart rate79 /min Chair Aurora Work Phone: [place] [address]-25-2024 14:00-0400Respiratory rate 16 /minChair Stew Work Phone: [facility]07-25-2024 14:00-0801FbT4% (BldA) [Mass fraction]99 %Chair Aurora Work Phone: [facility]07-25-2024 14:00-0400Systolic blood zxmquupe960 mm[Hg]Chair Aurora Work Phone: [facility]07-18-2024 14:08-0400Diastolic blood rxjfxinl71 mm[Hg]Chair Stew Work Phone: [facility]07-18-2024 14:08-0400Heart rate85 /min Chair Stew Work Phone: [facility]07-18-2024 14:08-0400Respiratory rate 18 /minChair Aurora Work Phone: [place] [address]-18-2024 14:08-2873PoA3% (BldA) [Mass fraction]96 %Chair Aurora Work Phone: [facility]07-18-2024 14:08-0400Systolic blood dfnhbtap289 mm[Hg]Chair Aurora Work Phone: [facility]07-12-2024 14:44-0400Blood Pressure [facility] HospitalMonica Saba 175-2066Kdzrhx-UcjlrDayton Va Medical Center Sezq92-62-3975 14:44-0400Body aaxlvlckyzi30.34 [degF]Monica Saba 815-3171Stbhlo-Hxjfi[address] [place], [place] 8472107-12-2024 14:44-0400Diastolic blood upvkbtwx25 mm[Hg]Monica Saba 824-2819Invuyh-Snnav[address] [place], [place] 8472107-12-2024 14:44-0400Heart rate85 /Jennifer Saba 702-9795Wptdfy-Ornjs[address] [place], [place] 8472107-12-2024 14:44-0400Respiratory rate16 /Jennifer Saba [address] [place], [place] 4822107-12-2024 14:44-3967QpJ8% (BldA) [Mass fraction]99 %Monica Saba [address] [place], [place] 4822107-12-2024 14:44-0400Systolic blood cnhvscez793 mm[Hg]Monica Saba [address] [place], [place] 4822106-25-2024 16:48-0400Blood Pressure LocationJaclandiedru Shirlene 593-7640Necrvo-Uuhpo[address] [place], [place] 8472106-25-2024 16:48-0400Body gngyvymfivq38.52 [degF]Lourdes Garber [address] [place], [place] 4822106-25-2024 16:48-0400Diastolic blood bocpzrpu95 mm[Hg]Lourdes Garber 635-8706Yjjqsq-Zvoxq[address] [place], [place] 8472106-25-2024 16:48-0400Heart rate86 /minJessican Shirlene 994-6817Tsidjf-Ijyfe[address] [place], [place] 8472106-25-2024 16:48-7005TtG2% (BldA) [Mass fraction]99 %Lourdes Garber 190-9487Vapwdu-Gdbzv[address] [place], [place] 8472106-25-2024 16:48-0400Systolic blood tlfzunch149 mm[Hg]Lourdes Garber 128-0674Vjzyhg-Gaizu[address] [place] [address] Primary Jewi41-64-7418 21:17-0400Body lswabwzlwfw84.06 [degF]Benny Uribe [address] [place], [place] 4161605-31-2024 21:17-0400 Diastolic blood fkljijvt28 mm[Hg]Benny Uribe [address]05-31-2024 21:17-0400Heart rate67 /minBenny Uribe [address] [place], [place] 0704705-31-2024 21:17-0400Mean blood hcfdpvip67 mm[Hg]Benny Uribe [address] [place], [place] 0704705-31-2024 21:17-5303IxM7% (BldA) [Mass fraction]95 %Benny Uribe [address]05-31-2024 21:17-0400 Systolic blood ogcybbds171 mm[Hg]Benny Uribe [address]05-31-2024 20:00-0400 Diastolic blood zzqpcune37 mm[Hg]Benny Uribe [address] [place], [place] 4161605-31-2024 20:00-0400Heart rate78 /Xavier Uribe [address] [place], [place] 4161605-31-2024 20:00-0400Mean blood mm[Hg]Benny Uribe [address] [place], [place] 4161605-31-2024 20:00-0400 Respiratory rate20 /minBenny Uribe [address] [place], [place] 4161605-31-2024 20:00-0400 Systolic blood plwutyup609 mm[Hg]Benny Uribe [address] [place], [place] 0704705-31-2024 19:30-0400 Diastolic blood xegzlswo51 mm[Hg]Benny Uribe [facility]05-31-2024 19:30-0400Heart rate80 /minBenny Uribe [facility]05-31-2024 19:30-0400Mean blood yuqspejq256 mm[Hg]Benny Uribe [address] [place], [place] 4161605-31-2024 19:30-0400 Respiratory rate18 /minBenny Uribe [address] [place], [place] 4161605-31-2024 19:30-0260ApQ9% (BldA) [Mass fraction]100 %Benny Uribe [address] [place], [place] 4161605-31-2024 19:30-0400 Systolic blood pqrlbhya119 mm[Hg]Benny Uribe [address] [place], [place] 4161605-31-2024 19:00-0400 Respiratory rate17 /minBenny Uribe [address] [place], [place] 4161605-31-2024 18:32-0400Body uxvlzsgvgvq72.42 [degF]Benny Uribe [address] [place], [place] 4161605-31-2024 18:32-0400Heart rate69 /Xavier Uribe [facility]05-31-2024 17:46-0400 Diastolic blood tqnmukmr60 mm[Hg]JANET DUNHAM 557-8970Prnvpi-MuiyaMarietta Osteopathic Clinic Convenient Dnmh27-46-7010 17:46-0400Mean blood iovfvtmk265 mm[Hg]JANET DUNHAM 165-9556Gqzbmf-GsowsMarietta Osteopathic Clinic [facility] Xdba57-14-1615 17:46-0400Systolic blood qisjgmuy919 mm[Hg]JANET DUNHAM 963-8222Jbqyhk-AfoibMarietta Osteopathic Clinic [facility]ient Iqpr37-59-8868 17:40-0400Blood Pressure LocationFRANCISCO DUNHAM 900-9138Gllxoh-XmrhzWyandot Memorial Hospital05-31-2024 17:40-0400Body dltksjhunje46.88 [degF]AJNET ROBERTSONTIZ [phone]-PsnbtWyandot Memorial Hospital05-31-2024 17:40-0400Diastolic blood xoekxvsa93 mm[Hg]VALLEY MILLS DUNHAM [phone]-ClxsrWyandot Memorial Hospital05-31-2024 17:40-0400Heart rate79 /minFRANCISCO DUNHAM 139-0838Sjsyub-MxgtoWyandot Memorial Hospital05-31-2024 17:40-7080CjK3% (BldA) [Mass fraction]97 %[facility] [phone]-TndpqWyandot Memorial Hospital05-31-2024 17:40-0400Systolic blood elihoqpb293 mm[Hg][facility] 290-2860Cpezyl-OsmgmWyandot [facility] Hospital04-05-2024 11:42-0400Blood Pressure LocationScott KAPLE [phone]-PtjpeCincinnati [facility]04-05-2024 11:42-0400Body perjzdymbqd55.06 [degF]Penelope KAPLE [phone]-Uqtqx[address] [place], [place] [id number] 11:42-0400Diastolic blood qzuuqmhb26 mm[Hg]Penelope KAPLE [phone]-Wwhes[address] [place], [place] [id number] 11:42-0400Heart rate72 /minScott KAPLE [phone]-Cykte[address] [place], [place] [id number] 11:42-0400Respiratory rate16 /minScott KAPLE [phone]-LtdpvCincinnati Va [facility] Center04-05-2024 11:42-9544FxS0% (BldA) [Mass fraction]99 %Penelope KAPLE [phone]-HlercCincinnati Va [facility] Center04-05-2024 11:42-0400Systolic blood epaykrwh789 mm[Hg]Penelope CASAS 600-5002Pqthku-RyvcgCincinnati Va [facility] Center02-16-2024 14:05-0500Body ftugve491.7 cmVramos Calix MD Work Phone: [facility]02-16-2024 14:05-0500Body temperature 97.39 [degF]Kristofer Calix MD Work Phone: [facility]02-16-2024 14:05-0500Body jolpru757.1 kgKrisotfer Calix MD Work Phone: [facility]02-16-2024 14:05-0500Diastolic blood lpttnnov10 mm[Hg]Kristofer Calix MD Work Phone: [facility]02-16-2024 14:05-0500Heart rate87 /min Kristofer Calix MD Work Phone: [facility]02-16-2024 14:05-0500Respiratory rate 16 /minKristofer Calix MD Work Phone: [facility]02-16-2024 14:05-2962GdA1% (BldA) [Mass fraction]95 %Kristofer Calix MD Work Phone: [facility]02-16-2024 14:05-0500Systolic blood qeryfxso045 mm[Hg]Kristofer Calix MD Work Phone: [facility]01-26-2024 11:11-0500Blood Pressure LocationScott PRAVEEN [phone]-XhaqgCincinnati Va [facility] Center01-26-2024 11:11-0500Body rhwhoqefrih01.7 [degF]Penelope CASAS [phone]-WgmqmCincinnati Va [facility] Center01-26-2024 11:11-0500Diastolic blood mm[Hg]Penelope KAPLE 100-2332Djrekf-Kdaeg[address]01-26-2024 11:11-0500Heart rate76 /minScott KAPLE [address] [place], [place] [id number] 11:11-0500Respiratory rate18 /minScott KAPLE [address] [place], [place] [id number] 11:11-3126YvI2% (BldA) [Mass fraction]98 %Penelope KAPLE [address] [place], [place] [id number] 11:11-0500Systolic blood xevtdacc800 mm[Hg]Penelope KAPLE [address] [place], [place] 4822110-19-2023 09:41-0400Blood Pressure LocationScott KAPLE [address] [place], [place] [id number] 09:41-0400Body .42 [degF]Penelope KAPLE [address] [place], [place] [id number] 09:41-0400Diastolic blood wlkdappk58 mm[Hg]Peneloep KAPLE [address] [place], [place] 4822110-19-2023 09:41-0400Heart rate80 /minScott KAPLE [address] [place], [place] 4822110-19-2023 09:41-0400Respiratory rate18 /minScott KAPLE [address] [place], [place] 4822110-19-2023 09:41-3835SsR9% (BldA) [Mass fraction]98 %Penelope KAPLE [phone]-Bnksn[address]10-19-2023 09:41-0400Systolic blood huzdswzw837 mm[Hg]Penelope KAPLE [phone]-HvfnmC[facility]innati [facility]06-23-2023 09:44-0400Blood Pressure LocationScott PRAVEEN [phone]-Mgknl[address] [place], [place] 8472106-23-2023 09:44-0400Body dwyxfhygfdk75.24 [degF]Penelope CASAS [phone]-Vtjbz[address] [place], [place] 8472106-23-2023 09:44-0400Diastolic blood hawotuhx97 mm[Hg]Penelope CASAS [phone]-Zszzk[address] [place], [place] 8472106-23-2023 09:44-0400Heart rate88 /minScott PRAVEEN [phone]-Uaolp[address] [place], [place] 8472106-23-2023 09:44-0400Respiratory rate18 /minScott PRAVEEN [phone]-Wawom[address] [place], [place] 8472106-23-2023 09:44-5760CaS8% (BldA) [Mass fraction]98 %Penelope CASAS [phone]-Jbopl[address] [place], [place] 8472106-23-2023 09:44-0400Systolic blood rgightjp197 mm[Hg]Penelope CASAS [phone]-Ypuak[address] [place], [place] 8472103-30-2023 13:18-0400Body rmhnca269.7 cmVramos Calix MD Work Phone: [facility]03-30-2023 13:18-0400Body temperature 97.5 [degF]Kristofer Calix MD Work Phone: [facility]03-30-2023 13:18-0400Body lgjfis660.78 kgKristofer Calix MD Work Phone: [facility]03-30-2023 13:18-0400Diastolic blood ujwsxhyq47 mm[Hg]Kristofer Calix MD Work Phone: [facility]03-30-2023 13:18-0400Heart rate76 /min Kristofer Calix MD Work Phone: [facility]03-30-2023 13:18-0400Respiratory rate 16 /minKristofer Calix MD Work Phone: [facility]03-30-2023 13:18-4052NqH8% (BldA) [Mass fraction]97 %Kristofer Calix MD Work Phone: [facility]03-30-2023 13:18-0400Systolic blood ecthwwzv438 mm[Hg]Kristofer Calix MD Work Phone: [facility]12-22-2022 13:45-0500Body temperature 98.71 [degF]Chair Stew Work Phone: [facility]12-22-2022 13:45-0500Diastolic blood hgwelusw00 mm[Hg]Chair Aurora Work Phone: [facility]12-22-2022 13:45-0500Heart rate85 /min Chair Stew Work Phone: [facility]12-22-2022 13:45-3568MrS9% (BldA) [Mass fraction]97 %Chair Aurora Work Phone: [facility]12-22-2022 13:45-0500Systolic blood xtglbybd892 mm[Hg]Chair Stew Work Phone: [facility]12-07-2022 16:27-0500Diastolic blood mm[Hg]Chair Aurora Work Phone: [facility]12-07-2022 16:27-0500Heart rate84 /min Chair Stew Work Phone: [facility]12-07-2022 16:27-0500Respiratory rate 18 /minChair Stew Work Phone: [facility]12-07-2022 16:27-9772HnX2% (BldA) [Mass fraction]96 %Chair Stew Work Phone: [facility]12-07-2022 16:27-0500Systolic blood gnfabsdk664 mm[Hg]Chair Quispey Work Phone: [facility]11-28-2022 14:20-0500Body ldemtb919.7 Jerry Calix MD Work Phone: [facility]11-28-2022 14:20-0500Body temperature 97.39 [degF]Kristofer Calix MD Work Phone: [facility]11-28-2022 14:20-0500Body .23 kgKristofer Calix MD Work Phone: [phone] 14:20-0500Diastolic blood bzdlzibm42 mm[Hg]Kristofer Calix MD Work Phone: [facility]11-28-2022 14:20-0500Heart mcfl570 /minKristofer Calix MD Work Phone: [phone] [address]-28-2022 14:20-0500Respiratory rate 16 /minKristofer Calix MD Work Phone: [facility]11-28-2022 14:20-6444FmS3% (BldA) [Mass fraction]97 %Kristofer Calix MD Work Phone: [facility]11-28-2022 14:20-0500Systolic blood ipxucetw300 mm[Hg]Kristofer Calix MD Work Phone: [facility]10-03-2022 11:46-0400Body tdjibt171.7 Jerry Calix MD Work Phone: [facility]10-03-2022 11:46-0400Body temperature 97.2 [degF]Kristofer Calix MD Work Phone: [facility]10-03-2022 11:46-0400Body .42 kgKristofer Calix MD Work Phone: [facility]10-03-2022 11:46-0400Diastolic blood gbwahvmo46 mm[Hg]Kristofer Calix MD Work Phone: [facility]10-03-2022 11:46-0400Heart rate88 /min Kristofer Calix MD Work Phone: [facility]10-03-2022 11:46-0400Respiratory rate 16 /minKristofer Calix MD Work Phone: [facility]10-03-2022 11:46-5238OnJ2% (BldA) [Mass fraction]99 %Kristofer Calix MD Work Phone: [facility]10-03-2022 11:46-0400Systolic blood gghobzoe872 mm[Hg]Kristofer Calix MD Work Phone: [facility]04-22-2022 10:46-0400Blood Pressure LocationDERIK SIDE [phone]-[facility]oayxDetwiler [facility] 04-22-2022 10:46-0400Diastolic blood bhvhcjae83 mm[Hg] PERNELL SIDELL [phone]-AxdhhDetwiler Memorial Hospital 04-22-2022 10:46-0400Heart rate96 /minDERIK SIDELL 505-0151Yphvkm-QtlhrDetwiler Memorial Hospital 04-22-2022 10:46-9908GvF1% (BldA) [Mass fraction]99 % PERNELL SIDELL [phone]-YjtskDetwiler Memorial Hospital 04-22-2022 10:46-0400Systolic blood qcukqkro525 mm[Hg] PERNELL SIDELL [phone]-LtxffDetwiler Memorial Hospital Encounters Encounter DateEncounter TypeCare ProviderFacilityStart: 03-02-2025 End: 03-22-4234qhwalqqthqEIKZQ MARTINEZFacility:[facility]tart: 02-27-2025 End: 51-75-7016Rpspxrbsu Result EncounterCorey Montez DO Work Phone: noms External Department UnsolicitedStart: 02-27-2025 End: 51-12-9997Doxqkxbzn Result EncounterCorey Montez DO Work Phone: noms External Department UnsolicitedStart: 02-23-2025 End: 05-20-4281Bhcgho flowsheetCorey Montez DO Work Phone: [facility] [place] [facility]YNStart: 02-23-2025 End: 12-12-6433Rouieb flowsheetCorey Montez DO Work Phone: noms [place] [facility]BGYNStart: 02-23-2025 End: 55-61-3979ukiaevcjigANHET FAZIONot AvailableStart: 02-23-2025 End: 26-01-4171Erjeee outpatient visit 15 minutesCorey Montez DO Work Phone: noms [facility] OBGYNComment on above:Third trimester ([facility]); 30 weeks gestation of ([facility])Start: 02-20-2025 End: 42-35-1208Lbdhcbpnz Result EncounterCorey Montez DO Work Phone: noms External Department UnsolicitedStart: 02-20-2025 End: 15-66-5358Rjjyvfvpo Result EncounterCorey Montez DO Work Phone: noms External Department UnsolicitedStart: 02-16-2025 End: 84-10-2690Okqyie consultation new/estab patient 80 Héctor Callahan MD MPH Work Phone: [facility] CenterComment on above:Antiphospholipid syndrome (Primary Dx); Antiphospholipid syndrome complicating , antepartum; History of CVA (cerebrovascular accident); Coordination of complex care; 29 weeks gestation of pregnancyStart: 02-16-2025 End: 73-95-2226omcjwbwyjpWXKON REDDY [facility] Hospitaltart: 02-10-2025 End: 26-66-5807Ejdozecld encounterCathyjacinta Dominguezavery WELLS Work Phone: [phone]-Tsbxf Medicine at [facility] Start: 02-09-2025 End: 29-94-3683xhhjsabzppZZWEU FAZIONot AvailableStart: 02-09-2025 End: 61-58-4583Syzmha outpatient visit 15 minutesCorey Montez RESENDEZ Work Phone: NOBR Piyush OBGYNComment on above:Third trimester ([facility]); 28 weeks gestation of ([facility]); Anemia complicating childbirth ([facility]); Anticoagulant long-term use; Antiphospholipid antibody positive; Blood pressure elevated without history of HTN; Coagulation defect, unspecified ([facility])Start: 02-06-2025 End: 84-85-8589oiesnojehfJAIEWKIK P DOCHEVAGreen Cross Hospital HospitalStart: 02-06-2025 End: 19-75-2026Radeay outpatient visit 25 minutesMukul Noyola MD Work Phone: [phone]-Qerob Medicine at [facility] Comment on above:27 weeks gestation of (Primary Dx); Multigravida of advanced maternal age in third trimester; Gestational diabetes mellitus (GDM) in second trimester controlled on oral hypoglycemic drug; Antiphospholipid syndrome complicating , antepartum; Antiphospholipid syndromeStart: 02-05-2025 End: 57-11-8794slfobasbgjFFAYJ R [facility] PPGStart: 02-03-2025 End: 00-74-2893bbsfgaizweDeuqw R FAZIOFacility:FTMCStart: 01-19-2025 End: 68-16-2818ekhexvjsgqPHKSI FAZIONot AvailableStart: 01-19-2025 End: 15-23-3044Kpfuyp outpatient visit 15 minutesCorey Montez DO Work Phone: noms [place] OBGYNComment on above:Second trimester ([facility]); 25 weeks gestation of ([facility]); Gestational diabetes mellitus (GDM), antepartum, gestational diabetes method of control unspecified([facility]); Anticoagulant long-term use; Antiphospholipid antibody positive; Antiphospholipid antibody syndrome ([facility])Start: 36-16-7384ufgrbaqxxvJzzlz R FAZIOFacility:FTMCStart: 01-13-2025 End: 81-89-2708Kooksv outpatient visit 25 minutesColljo ann E Sarah QUINTEROS Work Phone: [phone]-Djagg Medicine at [facility] Comment on above:Gestational diabetes mellitus (GDM) in second trimester controlled on oral hypoglycemic drug (Primary Dx); Antiphospholipid syndrome; Other specified hypothyroidism; Antiphospholipid syndrome complicating , antepartumStart: 01-13-2025 End: 82-06-4961lheljmxikdJUUYFNG E SARAHProMedica Aguanga HospitalStart: 01-09-2025 End: 70-26-6067Ffzaohger encounterMukul Noyola MD Work Phone: [phone]-Mafev Medicine at [facility] Comment on above:Antiphospholipid syndrome (Primary Dx)Start: 01-07-2025 End: 20-48-7561Okwvphsbs encounterJacque Pat RNMaternal- Medicine at [facility] HospitalStart: 01-05-2025 End: 38-13-8737ilzwjwcyjeELDUC FAZIONot AvailableStart: 01-05-2025 End: 58-78-2868Cdwzos outpatient visit 15 minutesCorey Montez DO Work Phone: noms [place] OBGYNComment on above:Second trimester ([facility]); 23 weeks gestation of ([facility]); Thyroid disease ; Gestational diabetes mellitus (GDM), antepartum, gestational diabetes method of control unspecified([facility]); Multigravida of advanced maternal age in second trimester ([facility]); H/O loss; Lightheaded; DizzinessStart: 01-05-2025 End: 32-88-5678Tmqzes flowsheetCorey Montez DO Work Phone: NOMS [facility] OBGYNStart: 01-05-2025 End: 84-07-6820Ttgcyl flowsheetCorey Montez DO Work Phone: NOM[facility] OBGYNStart: 01-05-2025 End: 05-52-1206Gxyjkbammntcb procedureKenyonfrancis Pat RNMaternal- Medicine at [facility] [...] Family history of autism; HyponatremiaStart: 01-01-2025 End: 23-25-3558Nsvlxw consultation new/estab patient 80 Margaux Noyola MD Work Phone: [facility] Medicine SorrentoComment on above: 22 weeks gestation of (Primary Dx); Antiphospholipid syndrome complicating , antepartum; History of stroke; History of loss in prior , currently in second trimester; Gestational diabetes mellitus (GDM) in second trimester controlled on oral hypoglycemic drug; Multigravida of advanced maternal age in second trimester; Hypothyroidism affecting in second trimester; Family history of autism; HyponatremiaStart: 01-01-2025 End: 92-54-7648PkaiysDell Warren RNMaterna Medicine [place] Comment on above:Multigravida of advanced maternal age in second trimester (Primary Dx); Antiphospholipid syndrome complicating , antepartum; Gestational diabetes mellitus (GDM) in second trimester controlled on oral hypoglycemic drug; Insulin controlled gestational diabetes mellitus (GDM) in second trimester; AMA (advanced maternal age) multigravida 35+, second trimester; Hypothyroidism, unspecified typeStart: 12-26-2024 End: 99-47-6764Iwfbkx Ty Noyola MD Work Phone: [facility] LaborComment on above: Gestational diabetes mellitus (GDM) in second trimester controlled on oral hypoglycemic drug (Primary Dx)Start: 12-23-2024 End: 60-73-1744Udcisho encounter procedureKatherine Negrete APRN.TOR Work Phone: Hematology/OncologyStart: 12-23-2024 End: 50-12-5163uopcpilujsTdqjq Martinez APRN.CNP Work Phone: Hematology/OncologyComment on above:Antiphospholipid antibody positive (Primary Dx); Iron deficiency anemia secondary to blood loss (chronic); Vitamin D deficiency; Primary hypercoagulable state (HCC)Start: 12-17-2024 End: 14-12-7803qreoellmloIABDHEDETuscarawas Hospitaltart: 12-17-2024 End: 67-19-2368Vfxvxp outpatient visit 25 minutesAlisa HUTTON Work Phone: [phone]-Dsusu Medicine at [facility] Comment on above:Gestational diabetes mellitus (GDM) in second trimester controlled on oral hypoglycemic drug (Primary Dx)Start: 12-17-2024 End: 70-01-8604tchdpxrbauIQSCXKTL BROParkview Health Montpelier Hospitaltart: 12-16-2024 End: 07-43-8904Lrghpspcg Result EncounterCorey Montez DO Work Phone: noms External Department UnsolicitedStart: 12-16-2024 End: 87-07-6821Rikdxwcht Result EncounterCorey Montez DO Work Phone: noms External Department UnsolicitedStart: 12-12-2024 End: 02-38-7009Ebeikustw encounterAnnita WELLS Work Phone: [phone]-Lobst Medicine at [facility] Start: 12-11-2024 End: 13-78-2378Omsqre flowsheetCorey Montez DO Work Phone: NOTG [facility] OBGYNStart: 12-11-2024 End: 03-76-9361Wvzrhm flowsheetCorey Montez DO Work Phone: NOOM [place] [facility]BGYNStart: 12-11-2024 End: 02-11-1148Qxpbemykc Result EncounterCorey Montez DO Work Phone: NOIB External Department UnsolicitedStart: 12-11-2024 End: 25-81-4109hszwcjrksuRMZRK FAZIONot AvailableStart: 12-11-2024 End: 17-94-6350Eegbxw outpatient visit 15 minutesCorey Montez DO Work Phone: NOPR Piyush OBGYNComment on above:19 weeks gestation of ([facility]); Second trimester ([facility]); Thyroid disease ; Multigravida of advanced maternal age in second trimester ([facility]); Gestational diabetes mellitus (GDM), antepartum, gestational diabetes method of control unspecified([facility])Start: 12-03-2024 End: 05-29-6099qzchkljuauUEZTTCSH BROGANProSalem Regional Medical Center HospitalStart: 12-03-2024 End: 73-02-8000Wtarua outpatient visit 25 minutesAlisa Saba FAMILY PROTECTION SPECIALIST-MACHINE [employer]OBBIN WINDER Work Phone: [phone]-Qumhe Medicine at [facility] Comment on above:Insulin controlled gestational diabetes mellitus (GDM) in second trimester (Primary Dx)Start: 12-03-2024 End: 67-30-2474Hipfmgjwg encounterAnni Brady CMAMaternal- Medicine at [facility] Healthtart: 11-20-2024 End: 68-58-3611Kwcksn flowsheetCorey Montez DO Work Phone: noms BCP OBStart: 11-20-2024 End: 85-96-2808Oeygdw flowsheetCorey Montez DO Work Phone: noms BCP OBStart: 11-20-2024 End: 20-50-5679cfsoanuvvdJEJBF FAZIONot AvailableStart: 11-20-2024 End: 18-54-5116Vqnwio outpatient visit 15 minutesCorey Montez DO Work Phone: NOLG Piyush OBGYNComment on above:Second trimester ([facility]); 16 weeks gestation of ([facility]); Screening, , for anatomic survey ([facility]); Vaginal discharge; Sinus headacheStart: 11-19-2024 End: 67-92-8289pgxdakcrliAxfujy M Frey RN Work Phone: [phone]-Rgcdu Medicine at [facility] Comment on above:Gestational diabetes mellitus (GDM), antepartum, gestational diabetes method of control unspecified(Primary Dx)Start: 11-04-2024 End: 56-15-1807Lcwqq Syd Noyola MD Work Phone: [phone]-Wbelx Medicine at [facility] Start: 10-30-2024 End: 53-01-9908Umdjdc flowsheetCorey Montez DO Work Phone: noms BCP OBStart: 10-30-2024 End: 36-74-2184Dyrvld flowsheetCorey Montez DO Work Phone: noms BCP OBStart: 10-30-2024 End: 64-11-5388Xjqmrq outpatient visit 15 minutesCorey Montez DO Work Phone: noms BCP OBComment on above:Second trimester ([facility]); 13 weeks gestation of ([facility]); Thyroid disease ; Multigravida of advanced maternal age in second trimester ([facility]); Gestational diabetes mellitus (GDM), antepartum, gestational diabetes method of control unspecified([facility]); Elevated glucose tolerance testStart: 10-30-2024 End: 93-68-3705ewglisaupdIHXBA FAZIONot AvailableStart: 10-29-2024 End: 59-76-2537KgxbonMdlueuStephany Paz APRN.CNP Work Phone: Hematology/OncologyComment on above:Refill Request Start: 10-28-2024 End: 19-94-5205Zubjsvz encounter procedureKatherine Negrete APRN.CNP Work Phone: Hematology/OncologyStart: 10-28-2024 End: 00-70-1206mqeqyjdshlYcysu Martinez APRN.CNP Work Phone: Hematology/OncologyComment on above:Primary hypercoagulable state (HCC) (Primary Dx); CVA, old, speech/language deficit; Cerebral hyponatremia; Personal history of TIA (transient ischemic attack)Start: 10-28-2024 End: 40-12-4108Meqtadogv encounterKatherine Negrete APRN.TOR Work Phone: Cancer Appts MCComment on above:ResultsStart: 10-24-2024 End: 11-15-7370Ydsfevzqq Gregoria Negrete APRN.TOR Work Phone: Hematology/OncologyComment on above:Lab OrdersStart: 10-20-2024 End: 15-16-1797ErefieNtght Levon ROSARIO Work Phone: Hematology/OncologyComment on above:Refill Request Start: 10-13-2024 End: 74-33-4571Nfbmse Monroe Khan RNMaternal- Medicine at [facility] CenterComment on above:Gestational diabetes mellitus (GDM), antepartum, gestational diabetes method of control unspecified(Primary Dx)Start: 10-06-2024 End: 02-46-7506Yikcmmieu Result EncounterCorey Montez DO Work Phone: noms External Department UnsolicitedStart: 10-06-2024 End: 02-67-6047Mxtmxjphl Result EncounterCorey Montez DO Work Phone: noms External Department UnsolicitedStart: 10-02-2024 End: 21-62-8171xkpyquodliKHBYV FAZIONot AvailableStart: 10-02-2024 End: 83-42-8862Bhhqem outpatient visit 5 minutesNoms Bcp Ob Montez NurseNOMS BCP OBComment on above:GA: 8v1lRqttb: 09-11-2024 End: 62-73-0243Xgywreqzh Result EncounterCorey Montez DO Work Phone: NOMS External Department UnsolicitedStart: 09-11-2024 End: 68-04-2517Kktmzhapt Result EncounterCorey Montez DO Work Phone: noMS External Department UnsolicitedStart: 09-09-2024 End: 01-66-5153gjkdnpskomHpoqd Cecily STYLESLEFacility:Vla PCStart: 09-09-2024 End: 24-18-4405Mlnmkbe encounter procedureScott Cecily CASAS [phone]-AqaovMarietta [facility] Start: 09-07-2024 End: 24-85-0446cjwvqlvhebTiqvy M. DempseyFacility:GIL TaylorkStart: 09-02-2024 End: 53-55-8870Itsbjgiqi encounterNatalimaxim Johnson RNHematology/OncologyComment on above:Patient UpdateStart: 08-26-2024 End: 13-16-7405Mqyaasfqg encounterKristofer Calix MD Work Phone: Hematology/OncologyComment on above:Lab OrdersStart: 08-23-2024 End: 31-48-3205tjmhfgyasuRxgku R FAZIOFacility:FTMCStart: 08-23-2024 End: 23-01-0559Qwadifu encounter procedureCorey R MONTEZ [facility] Start: 07-25-2024 End: 81-89-6755CmsnxdHsoqt Abhyankar MD Work Phone: Hematology/OncologyComment on above:Refill Request Start: 07-24-2024 End: 18-89-2983Wmtlva flowsheetCorey Montez DO Work Phone: NOMS BCP OBStart: 07-24-2024 End: 44-44-0350Pnvnlm flowsheetCorey Montez DO Work Phone: noms BCP OBStart: 07-24-2024 End: 14-24-7158suhscfaqfuHEZOZ FAZIONot AvailableStart: 07-24-2024 End: 96-96-3581Zsgwoy outpatient visit 15 minutesCorey Montez DO Work Phone: noms BCP OBComment on above:Irregular menstrual cycle Start: 07-09-2024 End: 60-38-3659jeqadvnxilRnvoaao A VisciFacility:FTMCStart: 07-09-2024 End: 53-61-8152Tdqstus encounter procedureInez [facility] Start: 07-08-2024 End: 34-68-3447Haj-admission assessmentInez [facility] Start: 07-07-2024 End: 13-88-5868fewlrnfdhuFgmbx A KAPLEFacility:Val PCStart: 06-30-2024 End: 66-77-8964oqqsyduwbwZdixx A KAPLEFacility:Val PCStart: 06-30-2024 End: 78-33-9986Hqvmgyc encounter procedureScott A PRAVEEN [phone]-VmnaxMarietta Osteopathic Clinic [facility] Start: 06-23-2024 End: 17-91-3248Odbxds outpatient visit 15 minutesCorey Montez DO Work Phone: noms BCP OBComment on above:Vaginal bleeding; Dizziness; Abnormal TSH; Vaginal discharge; Pelvic pain in femaleStart: 06-23-2024 End: 09-82-0649xbgtnlpfchPKBEV FAZIONot AvailableStart: 06-23-2024 End: 72-95-8639Keesezkl Result EncounterCorey Montez DO Work Phone: noms External Department UnsolicitedStart: 06-23-2024 End: 73-65-2304Zyhhcwmn Result EncounterCorey Montez DO Work Phone: noms External Department UnsolicitedStart: 06-19-2024 End: 75-45-7605atpfwtqycjPWGTVD Spencer BACAFacility:FM MilanStart: 06-19-2024 End: 50-06-0701Shlzygb encounter procedureJAGUMARO BACA [phone]-TidduMarietta Osteopathic Clinic [facility] [place] Start: 06-12-2024 End: 04-13-6652kntrdackewHnfnq R FAZIOFacility:FTMCStart: 06-12-2024 End: 61-70-5500Epfptif encounter procedureCorey R MONTEZ [facility] Start: 06-09-2024 End: 00-19-7952hxfjzgyhbvAddgs A KAPLEFacility:Val PCStart: 06-09-2024 End: 08-18-7166Pznegep encounter procedureCorey R MONTEZ [facility] Start: 06-06-2024 End: 59-09-8937qqydrtqkpaHLNGEV A LEHMANNFacility:FT FM BellevueStart: 06-02-2024 End: 80-04-2471kmeibgimibLURBJ FAZIONot AvailableStart: 06-02-2024 End: 69-45-4773Oshzeh outpatient visit 15 minutesCorey Montez DO Work Phone: noms BCP OBComment on above:Follow-up visit after miscarriage; Abnormal TSH; History of thyroid diseaseStart: 05-28-2024 End: 57-89-7651Faozjklcx encounterKristofer Calix MD Work Phone: Cancer Appts MCStart: 05-28-2024 End: 92-17-1791Tgyisv outpatient visit 25 minutesKristofer Calxi MD Work Phone: Hematology/OncologyComment on above:Primary hypercoagulable state (HCC) (Primary Dx); CVA, old, speech/language deficit; Iron deficiency anemia secondary to blood loss (chronic); Vitamin D deficiency; Antiphospholipid antibody syndrome (HCC)Start: 05-28-2024 End: 19-05-1713ujqpmkcfqeGVKSW ABHYANKARFacility:[facility] HospitalStart: 87-25-5422jkdvenoveiHfwks A KAPLEFacility:Val PCStart: 05-14-2024 End: 37-38-6917Astvgqktn encounterNatalimaxim Johnson RNHematology/OncologyComment on above:Patient UpdateStart: 05-10-2024 End: 51-97-3228Nadbceouz Result EncounterCorey Montez DO Work Phone: noms External Department UnsolicitedStart: 05-10-2024 End: 96-52-8823Raqudxdgz Result EncounterCorey Montez DO Work Phone: noms External Department UnsolicitedStart: 05-10-2024 End: 54-61-0583pxujagtpkjHpsws FazioFiMercy Health [facility] Work Phone: Start: 05-10-2024 End: 13-71-0482Dlgdnicf ReferredCorey Montez DO Work Phone: [facility] Ctr-LAB Path Spec [facility]ush HospStart: 05-06-2024 End: 00-92-7331aarxecenaiAUFKQ FAZIONot AvailableStart: 05-06-2024 End: 03-26-8912Ilfaun flowsheetCorey Montez DO Work Phone: noms BCP OBStart: 05-06-2024 End: 38-32-8274Erblne flowsheetCorey Montez DO Work Phone: noms BCP OBStart: 05-06-2024 End: 48-40-1921zwgsmwwkixSFDBS FAZIONot AvailableStart: 05-06-2024 End: 23-54-4385Uxsuas outpatient visit 15 minutesCorey Montez DO Work Phone: noms BCP OBComment on above:14 weeks gestation of ; Second trimester ; Confirm viability with history of miscarriage, ultrasoundStart: 04-28-2024 End: 52-51-2698DvqocfXjvndSalvador Calix MD Work Phone: Hematology/OncologyComment on above:Refill Request Start: 04-12-2024 End: 60-15-9992Kbbkpqynb Result EncounterCorey Montez DO Work Phone: noms External Department UnsolicitedStart: 04-12-2024 End: 55-14-6037Jcsbnqqas Result EncounterCorey Montez DO Work Phone: noms External Department UnsolicitedStart: 04-05-2024 End: 46-96-3204Ygfpkrqvn Result EncounterCorey Montez DO Work Phone: noms External Department UnsolicitedStart: 04-05-2024 End: 54-91-5413Oypktpaci Result EncounterCorey Montez DO Work Phone: [facility] External Department UnsolicitedStart: 04-04-2024 End: 55-45-6305ypcqksxfhxGZBHJ FAZIONot AvailableStart: 04-04-2024 End: 46-88-8254Tfojrz outpatient visit 5 minutesNoms Bcp Ob Montez NurseNOMS BCP OBComment on above:GA: 8x8kLogeq: 03-01-2024 End: 60-99-1264fncqpaeixsAkhww R FAZIOFacility:[facility]MCStart: 03-01-2024 End: 39-61-3219Kftryrg encounter procedureCorey R MONTEZ [facility] Start: 02-27-2024 End: 71-84-1616jurlmqnmpuGdmad R FAZIOFacility:FTMCStart: 02-27-2024 End: 00-56-4673Nczewmant encounterNatalie Johnson RNHematology/OncologyComment on above:Patient QuestionStart: 02-25-2024 End: 13-78-5361htrhjecygkAhele R FAZIOFacility:FTMCStart: 02-25-2024 End: 08-78-6464Dzrikzu encounter procedureCorey R MONTEZ [facility] Start: 02-23-2024 End: 01-17-0392nqzmnffikrPnfyr A KAPLEFacility:FTMCStart: 02-23-2024 End: 23-97-7340Pncbpho encounter procedureCorey R MONTEZ [facility] Start: 02-05-2024 End: 00-23-8269qhkxangudzJwdgu A KAPLEFacility:Val PCStart: 02-05-2024 End: 37-18-5924Djrlvty encounter procedureScott Cecily CASAS [phone]-KehpwMarietta [facility] Start: 02-05-2024 End: 42-98-1588Kkpn adult monitoring check donePenelope CASAS [phone]-KzyfxMarietta Osteopathic Clinic [facility] Start: 02-02-2024 End: 89-48-2386spogwqwgvyMcoqrg GudimellaFacility:GIL ChicaswalkStart: 02-02-2024 End: 75-06-0782Ashwasq encounter procedurePreeti Gudimella [phone]-IiehzMarietta [facility] Start: 06-16-1397yondwgdmnxVcrbk A KAPLE Facility:Val PCStart: 01-24-2024 End: 47-11-5309ZudfbmPjmoySalvador Calix MD Work Phone: Hematology/OncologyComment on above:Refill Request Start: 01-02-2024 End: 38-71-8339Kxkjtslva encounterKristofer Calix MD Work Phone: Cancer Appts MCComment on above:ResultsStart: 01-02-2024 End: 97-99-8299Kovzfr outpatient visit 15 minutesKristofer Calix MD Work Phone: Hematology/OncologyComment on above:Iron deficiency anemia secondary to blood loss (chronic) (Primary Dx); Vitamin D deficiency; Malaise and fatigueStart: 12-17-2023 End: 85-64-7447Tarqnysng encounterNatalimaxim Johnson RNHematology/OncologyStart: 12-06-2023 End: 63-43-6253tbkryjqutjSiybtcpbv L ClarkFacility:FTMCStart: 12-06-2023 End: 33-50-8163Xwfvubr encounter procedureMonica Saba [facility] Start: 77-23-3743omenczudqrKyedw A KAPLE Facility:Estill PCStart: 11-29-2023 End: 13-90-8555erotlqjqglOssst Abhyankar MD Work Phone: Hematology/OncologyComment on above:Iron infusion side effects?Refill RequestIron deficiency anemia of (Primary Dx); Iron deficiency anemia secondary to blood loss (chronic)Start: 11-22-2023 End: 34-14-3260jzprmqasjzSjynv [address] [place] Work Phone: Hematology/OncologyComment on above:Iron deficiency anemia of (Primary Dx); Iron deficiency anemia secondary to blood loss (chronic)Start: 11-15-2023 Telephone encounterFinancial Navigator Delgado Work Phone: Hematology/OncologyStart: 11-15-2023 End: 89-51-4953pzzrzbzfnsJhmti [address] [place] Work Phone: Hematology/OncologyComment on above:Iron deficiency anemia of (Primary Dx); Iron deficiency anemia secondary to blood loss (chronic)Start: 11-09-2023 End: 15-05-2813Jrsamon encounter procedureMonica Saba [phone]-IrokmMarietta Osteopathic Clinic [facility] Start: 11-09-2023 End: 37-31-8107Wjzyri WorkLormoe Krueger LSWHematology/OncologyStart: 11-05-2023 Telephone encounterKristofer Calix MD Work Phone: Cancer Appts MCComment on above:AppointmentStart: 10-23-2023 End: 57-55-4404shqjroietoOfsrpky Grace MisslerFacility:Val PCStart: 10-23-2023 End: 92-23-7042Izppdnq encounter procedureLourdes Garber [phone]-BtbmiMarietta Osteopathic Clinic [facility] Start: 09-28-2023 End: 23-17-2690Mogxgjuip department patient Marta Uribe [facility] Start: 09-28-2023 End: 84-60-1914fomwtwvchkALDelma DUNHAMFacility:GIL NorwalkStart: 09-28-2023 End: 43-75-8355Yetbbyz encounter procedureJANET DUNHAM [phone]-VxhebMarietta Osteopathic Clinic [facility] Start: 69-83-6829Seumblnew encounterKristofer Calix MD Work Phone: Cancer Appts MCComment on above:Appointment RescheduledStart: 09-21-2023 End: 34-89-3173cknvbynpfqWqydlVernell Calix MD Work Phone: Hematology/OncologyComment on above:Iron deficiency anemia secondary to blood loss (chronic) (Primary Dx)Start: 09-21-2023 End: 46-68-2518Yllbgvrzwigv consultation with Song Calix MD Work Phone: Hematology/OncologyStart: 08-03-2023 End: 52-57-3239jzbegmoxgxUiyml A KAPLEFacility:Val PCStart: 08-03-2023 End: 84-04-4666Nemlvfn encounter procedureScott A KAPLE [phone]-LrnzzMarietta [facility] Clinic [facility] Start: 06-29-2023 End: 73-52-4355nifdvealkgUmroj A KAPLEFacility:Val PCStart: 06-29-2023 End: 90-04-1886Ddcsspa encounter procedureScott A KAPLE [phone]-BwohfMarietta Osteopathic Clinic [facility] Start: 14-92-9225cjlftuzvlkMixqiww Powell food service utility worker/OncologyComment on above:Lab results/recommendationsStart: 06-19-2023 E-mail encounter from Jose Carlos Johnson RNSANDUSKYStart: 06-15-2023 End: 28-11-5143Njlcvz outpatient visit 25 minutesKristofer Calix MD Work Phone: Hematology/OncologyComment on above:Vitamin D deficiency (Primary Dx); Hypercalcemia; Iron deficiency anemia secondary to blood loss (chronic)Start: 06-15-2023 Telephone encounterKristofer Calix MD Work Phone: Cancer Appts MCComment on above:ResultsStart: 15-25-8081Delgcitle encounterKristofer Calix MD Work Phone: Hematology/OncologyComment on above:Lab OrdersStart: 64-48-2079Ceywhowso encounterKristofer Calix MD Work Phone: Cancer Appts MCComment on above:Future Appointment Start: 05-31-2023 End: 01-31-9294jhufdwxfctDekne Abhyankar MD Work Phone: Hematology/OncologyComment on above:Primary hypercoagulable state (HCC) (Primary Dx); CVA, old, speech/language deficit; Hypercalcemia; Vitamin D deficiency; Iron deficiency anemia secondary to blood loss (chronic); Malaise and fatigueStart: 05-31-2023 End: 32-07-7488Sgsmpculgpzd consultation with Song Calix MD Work Phone: SANDUSKYStart: 05-25-2023 End: 03-88-8767qclvskeurbCvjvs A KAPLEFacility:Val PCStart: 05-25-2023 End: 32-26-0808Ubqvucq encounter procedureScomike A PRAVEEN [phone]-OrwvwMarietta [facility] Clinic [facility] Start: 05-01-2023 End: 81-94-9162xxlperfwrhTwdiv A KAPLEFacility:FTMCStart: 04-27-2023 End: 85-17-7754Uba Drop offScott A KAPBEN [facility] Start: 04-27-2023 End: 24-70-1442syiuqowhoeUlzqo A KAPLEFacility:FTMCStart: 04-25-2023 End: 21-72-7763zmklynjnthBykl L SchwabFacility:FT FM BellevueStart: 03-19-2023 End: 57-31-1520jvhmuntbadBsrlmVernell Calix MD Work Phone: Hematology/OncologyComment on above:Primary hypercoagulable state (HCC) (Primary Dx); Iron deficiency anemia secondary to blood loss (chronic); Vitamin D deficiency; CVA, old, speech/language deficit; Antiphospholipid antibody syndrome (HCC)Start: 03-19-2023 End: 97-36-6924Slvbmaobvgry consultation with Song Calix MD Work Phone: SANDUSKYStart: 02-15-2023 End: 04-64-6902xvxbukrlqjRylkr A KAPLEFacility:Val PCStart: 02-15-2023 End: 09-82-4291Aqojadw encounter procedureScomike CASAS [phone]-FhkxfMarietta Osteopathic Clinic [facility] Start: 63-47-9766fldwqjxkmuQoaca A KAPLE Facility:Estill PCStart: 12-26-2022 End: 95-68-0056wbbqruqqlvEesvpuq Grace MisslerFacility:Estill PCStart: 12-26-2022 End: 92-37-2358Zextdbd encounter procedureLourdes Garber [phone]-BloxbMarietta Osteopathic Clinic [facility] Start: 12-22-2022 End: 94-88-5125ewiyoraamuVlcyqVernell Calix MD Work Phone: Hematology/OncologyComment on above:Primary hypercoagulable state (HCC) (Primary Dx); Iron deficiency anemia of ; Iron deficiency anemia secondary to blood loss (chronic); Vitamin D deficiencyStart: 12-22-2022 End: 02-45-4239Nmfavxiumuay consultation with Song Calix MD Work Phone: SANDUSKYStart: 80-17-3866Ytdboeejr encounterKristofer Calix MD Work Phone: Cancer Appts MCComment on above:AppointmentStart: 10-20-2022 End: 47-22-8319Itsbylx encounter Coreen CASAS [phone]-RwlyoMarietta Osteopathic Clinic [facility] Start: 09-28-2022 End: 18-95-5564cawlyixkajCykih Abhyankar MD Work Phone: Hematology/OncologyComment on above:Primary hypercoagulable state (HCC); CVA, old, speech/language deficit; Cerebral hyponatremiaStart: 09-28-2022 End: 82-16-8338Whyzzgeqigmd consultation with Song Calix MD Work Phone: SANDUSKYStart: 09-26-2022 End: 55-16-8744Kqyradp encounter procedureKristofer Calix [facility] Start: 46-42-8448Yjpdvlmti encounterValeri Yeung RN Hematology/OncologyComment on above:OrdersStart: 09-05-2022 End: 70-77-6383Ltgfygz encounter procedureCorey Spencer MONTEZ [facility] Start: 08-07-2022 End: 18-90-5800Wkmgxds encounter procedureCorey R MONTEZ [facility] Start: 07-27-2022 End: 37-89-5727Sfbwpb outpatient visit 25 minutesKristofer Calix MD Work Phone: Hematology/OncologyComment on above:Primary hypercoagulable state (HCC) (Primary Dx); Iron deficiency anemia secondary to blood loss (chronic); CVA, old, speech/language deficitStart: 48-18-2310BwchouCzbdy Abhyankar MD Work Phone: Hematology/OncologyComment on above:Refill Request Start: 05-16-2022 End: 02-62-7526pfyflalmkuPC WILTON FAZIOFacility:H2Lqjnj: 05-10-2022 End: 06-90-0096pnarbkduvrQA WILTON FAZIOFacility:E1Dvuam: 05-08-2022 End: 09-59-8442Wbgmhakvry and management of inpatientDR KALPANA THOMAS Facility:Y7Xqcuo: 05-05-2022 End: 45-30-8163xlxdodegnrEX KALPANA THOMASFacility:R1Xsnvh: 05-01-2022 End: 51-33-1121skpbrgrykwIE WILTON FAZIOFacility:N7Xsytn: 04-28-2022 End: 26-99-5834rwehgbkoiuLP WILTON FAZIOFacility:S0Xklks: 04-24-2022 End: 58-66-1107tpvwvedkklOL KALPANA CASTILLOKFacility:F7Eptsi: 04-20-2022 End: 31-46-6154daevimxybmTdana 10 [address] Work Phone: Hematology/OncologyComment on above:Iron deficiency anemia secondary to blood loss (chronic) (Primary Dx); Iron deficiency anemia of pregnancyStart: 04-19-2022 End: 95-44-2367ldazhuvnhhIW WILTON FAZIOFacility:H5Lhpdv: 04-14-2022 End: 81-45-6501alvotbqekdNV WILTON FAZIOFacility:B8Hyaaw: 04-07-2022 End: 91-65-4083qppyhbayoiMX WILTON FAZIOFacility:A2Xmthd: 14-70-9346KsuwovSajvn Abhyankar MD Work Phone: Hematology/OncologyComment on above:Refill Request Start: 04-05-2022 End: 63-64-0524defzvdxdldVmrgm 11 [address] Work Phone: Hematology/OncologyComment on above:Iron deficiency anemia secondary to blood loss (chronic) (Primary Dx); Iron deficiency anemia of pregnancyStart: 75-12-8793Wfnzrxowr encounterMeme Gonzalez RNHematology/OncologyComment on above:Appointment; Patient Question; Medication Question; OrdersStart: 03-31-2022 End: 78-01-4166fefvebynkoVP WILTON FAZIOFacility:G9Oihuq: 03-27-2022 End: 12-84-3891xpqgcuznamBddmiVernell Calix MD Work Phone: Hematology/OncologyComment on above:Iron deficiency anemia secondary to blood loss (chronic); Iron deficiency anemia of pregnancyStart: 03-27-2022 End: 36-36-3163Hkaayuw encounter Dionicio Calix MD Work Phone: SANDUSKYStart: 12-96-7640Iipmbryqi encounterKristofer Calix MD Work Phone: Cancer Appts MCComment on above:ResultsStart: 03-24-2022 End: 57-89-8539lawrfwprkxWE WILTON FAZIOFacility:J3Dsvrv: 03-16-2022 End: 05-60-9747hkhkovsqfnGP WILTON FAZIOFacility:Q8Enxtx: 02-24-2022 End: 21-76-2684cimznakclmCQ WILTON FAZIOFacility:Z6Epmfb: 02-14-2022 End: 95-07-0048wutlludlxdWS WILTON FAZIOFacility:G7Gdnni: 01-30-2022 End: 98-65-5669iujrbmeoauJnelxVernell Calix MD Work Phone: Hematology/OncologyComment on above:Primary hypercoagulable state (HCC) (Primary Dx); CVA, old, speech/language deficit; Antiphospholipid antibody syndrome (HCC); Anemia, unspecified typeStart: 01-30-2022 End: 60-79-4833Czfolwo encounter procedureKristofer Calix MD Work Phone: SANDUSKYStart: 01-24-2022 End: 04-46-4034tlsbnaamesZI WILTON FAZIOFacility:F7Qadhn: 01-24-2022 End: 27-98-6860fmbzsjsoypHU WILTON FAZIOFacility:N4Ziztf: 01-07-2022 End: 87-31-8806tbmqznczufLH WILTON FAZIOFacility:J9Xbikd: 76-52-0477NgaljwKvlyqgAwilda Pope RN Work Phone: Hematology/OncologyComment on above:Refill Request Start: 12-28-2021 End: 78-51-8404rnornoqlutPK WILTON FAZIOFacility:J7Rvoph: 11-21-2021 End: 67-43-0189koytbevwnyCMEDU A KAPLEMerProvidence Mission Hospital Lag[facility] Beach CenterStart: 11-21-2021 End: 32-34-8164Tqncxvltrz hospital visit by Sean Casas Work Phone: stvZ LaboratoryStart: 11-14-2021 End: 31-24-5701Dophklf encounter procedureSELF REFERRALKettering Health Start: 72-97-8686zngxrjcoyvSA WILTON FAZIOFacility:H1 Start: 10-25-2021 End: 70-82-0513qxdjcyidwzEY WILTON FAZIOFacility:I5Cjbqn: 12-33-9633VpiwtsNvnzf Nickelson RNHematology/OncologyComment on above:Refill RequestStart: 09-23-2021 End: 16-45-2988chyzvzappgSF WILTON FAZIOFacility:Y2Udewy: 41-13-9689Ohfqebyfb encounterMeme Easton RNHematology/OncologyComment on above:Medication QuestionStart: 11-82-6749Htqmaicfj encounterMeme Easton food service utility worker/OncologyComment on above:Patient QuestionStart: 09-01-2021 End: 44-58-6478aqkiezrszbAS WILTON FAZIOFacility:L5Bsrbp: 08-31-2021 End: 17-80-5400Sbzylot encounter Coreen CASAS [facility] Start: 08-29-2021 End: 00-68-3724oehqdgngghJT WILTON FAZIOFacility:P6Asnuv: 08-26-2021 End: 55-26-6514ractafasboID WILTON FAZIOFacility:O2Msbui: 08-24-2021 End: 03-22-5339tmvkerapoaYN WILTON FAZIOFacility:K6Cwvly: 67-31-1467Ijzmpqssy encounterMeme Easton RNHematology/OncologyComment on above:Patient Question Start: 08-19-2021 End: 84-17-0141Uvbkvdq encounter Precious LONGORIA [facility] Start: 08-19-2021 End: 03-72-9092Kql Drop offPERNELL LONGORIA [facility] Start: 08-19-2021 End: 40-05-7160Lctcnos encounter procedurePERNELL Rachel VON [phone]-TaqnqMarietta Osteopathic Clinic [facility] [place] Start: 09-45-3980Bbqfqiozg encounterKristofer Calix MD Work Phone: Cancer Appts MCComment on above:Future Appointment Start: 08-01-2021 End: 44-39-4105Jvjwanj evaluation of patient and reportMa Nurse Delgado Golden Work Phone: Hematology/OncologyComment on above:Infective urethritis (Primary Dx)Start: 93-62-7896Ryahyqx encounter procedureHaseeb MorelFacility:[facility] BStart: 57-03-3968Ljweovd encounter procedure ERIKA LONDONFacility:9459Start: 05-25-2017 End: 60-00-1848QwmjlhzoeqWTJHG R [facility] Procedures DateProcedureProcedure DetailPerforming ClinicianStart: 07-72-0696NW OB BPP W NON-STRESSCorey Montez DO Work Phone: Start: 65-99-7617Xmuzq dip stick/tablet rgnt non-auto w/o micrscpCorey Montez DO Work Phone: Start: 82-06-4104JW OB BPP W NON-STRESSCorey Montez DO Work Phone: Start: 75-07-4245US OB GROWTHCorey Montez DO Work Phone: Start: 91-00-5924Nazsa dip stick/tablet rgnt non-auto w/o micrscpCorey Montez DO Work Phone: Start: 34-34-2562Dyelc dip stick/tablet rgnt non-auto w/o micrscpCorey Montez DO Work Phone: Start: 70-47-9968Zdsxa dip stick/tablet rgnt non-auto w/o micrscpCorey Montez DO Work Phone: Start: 12-46-6133NC OB CERVICAL LENGTHCorey Montez DO Work Phone: [phone]: 29-56-4980NEX UA (CLEAN/CATCH) KITCHEN OPERATOR/MICRO IF IND.Wilton Montez DO Work Phone: [phone]: 20-19-3025UER THYROID STIM HORMONECorey Montez DO Work Phone: Start: 41-21-1973Cvmgu dip stick/tablet rgnt non-auto w/o micrscpCorey Montez DO Work Phone: [phone]: 78-64-4314Zogom dip stick/tablet rgnt non-auto w/o micrscpCorey Montez DO Work Phone: Start: 16-92-2047Jzuweaa quantitative blood xcpt reagent stripStar Waggoner MD Work Phone: Start: 99-99-6777Bhhdl dip stick/tablet rgnt non-auto w/o micrscpCorey Montez DO Work Phone: Start: 45-92-0047Nnzvn of thyroid stimulating hormone tshNot In System Ref ProvStart: 19-85-9917Pvmympjy screenMukul Noyola MD Work Phone: Start: 18-89-8552Qsld scrn 1+ class nonchromoNot In System Ref ProvStart: 33-25-3245Avdudztpch glycosylated a3fWxmihhxa Provider ExternalStart: 18-72-2507VPF 1&2 AB/AG SCREEN (P24 AG)Not In System Ref Prov Start: 98-09-2094Vwra ia hepatitis b surface antigenNot In System Ref ProvStart: 00-84-3093ZKSO AND SCREENNot In System Ref ProvStart: 14-99-0817OBL CBC WITH AUTO DIFFCorey Montez DO Work Phone: Start: 33-60-2887Qnxri dip stick/tablet rgnt non-auto w/o micrscpCorey Montez DO Work Phone: Start: 13-87-0389CA OB TRANSVAGINALCorey Montez DO Work Phone: Start: 19-00-6270Bracx test visual color cmprsn methsCorey Montez DO Work Phone: Start: 14-42-8728JCHEPPQLK VAGINITIS (HTRX)Wilton Montez DO Work Phone: Start: 99-01-7890Xargr dip stick/tablet rgnt non-auto w/o micrscpCorey Montez DO Work Phone: Start: 76-40-4419FD PELVISCorey Montez DO Work Phone: Start: 17-26-1580Ha uterus limited 1/> fetusesCorey Montez DO Work Phone: Start: 90-60-2919RLX CBC WITH AUTO DIFFCorey Montez DO Work Phone: Start: 19-01-8059FSZ IMMUNOGLOBULIN GCorey Montez DO Work Phone: Start: 07-07-9232GOL IMMUNOGLOBULIN MCorey Montez DO Work Phone: Start: 92-76-0607XTI MISCELLANEOUS TESTCorey Montez DO Work Phone: Start: 28-96-4607LIO APTTCorey Montez DO Work Phone: Start: 73-60-4556OGWTRZ V LEIDEN MUTATIONCorey Montez DO Work Phone: Start: 26-47-6750LDGNZ HOMOCYSTEINECorey Montez DO Work Phone: Start: 64-47-2751JDDC FIBRINOGENCorey Montez DO Work Phone: Start: 77-23-8470GSJSUFB C-FUNCTIONALCorey Montez DO Work Phone: Start: 41-06-3236KKVFPZN S-ANTIGENCorey Montez DO Work Phone: Start: 67-96-2580CUECQL PROTHROMBIN TIME INR W/O COUM Wilton Herrmann DO Work Phone: Start: 39-25-1993CUC ANTITHROMBIN ACTIVITYCorey Montez DO Work Phone: Start: 03-15-6367Krhwr dip stick/tablet rgnt non-auto w/o micrscpCorey Montez DO Work Phone: Start: 51-13-5142XXL TESTCorey Montez DO Work Phone: Start: 12-90-5124QRR DRUG SCREEN RAPID (URINE)Wilton Herrmann DO Work Phone: Start: 81-89-5467PC OB TRANSVAGINALCorey Montez DO Work Phone: Start: 04-04-2024 End: 25-15-4006Whdwt dip stick/tablet rgnt non-auto w/o micrscpCorey Montez DO Work Phone: Start: 44-86-8822Uovhdow refused by patient Immunization not carried out because of patient decisionNoms NurseStart: 33-35-3919Rdxooyyy of Products of Conception, External ApproachDR WILTON HERRMANN Start: 23-85-9413Vueh bld gluc mntr dev cleared fda spec home useCcf Provider Start: 88-94-7096Sanutjhrxpf observation [Identifier] in Cervix by Cyto stain Wilton Herrmann DO Work Phone: Start: 11-21-2021 End: 09-83-3194Hjdek-fetoprotein serumScanning Provider ExternalStart: 11-21-2021 End: 08-48-5116DACGUPQ STUDY NON-PROMEDICAScanning Provider ExternalStart: 17-28-1280LUBEYODFLYLYW TESTINGTod Lopez MD Work Phone: Start: 38-46-8420Jzekw depression screening assessment Nevin Golden Work Phone: Start: 31-87-5853TJR CULTUREDHRUV PATELStart: 07-44-4632GKPWSNMXO PATELStart: 58-82-7680OJD CELL COUNT WITH DIFFERENTIALDHRUV PATELStart: 94-30-5764IDFBOFX SIMPSON VIRUS PCRDHRUV PATELStart: 00-11-8969RFFMCMJ, CSFDHRUV PATELStart: 07-25-6665LSZWJO BASIC PROTEIN, CSFDHRUV PATELStart: 38-36-1732SGPZHJOUCTD BANDINGDHRUV PATELStart: 21-03-2666BQPJOBW, CSFDHRUV MONGE Start: 63-25-5588WSTETDM-INRDHRUV PATELStart: 46-16-0118Avkybi puncture lumbar diagnosticRUV PATELStart: 57-32-5916JAKIGXXFAMLATTSM ANTIBODY PANELACOMA-CANONCITO-LAG[facility]NA SERV[facility]ITV [facility] Start: 41-05-4396JDXMGZTUUMK AB IGG, IGM, IGADHRUV PATELStart: 00-61-0356ZIKIQMT PATELStart: 63-55-3795NRSYHVZCTWDU, SERUMDHRUV PATELStart: 79-37-1471TQMX ARUP 1DHRUV PATELStart: 91-10-0749RZJSHGFWNQR PATELStart: 60-33-2732CBZKHUUCVCRI PATELStart: 41-52-1011Wxwybx of breastDERIK SIDELL Start: 86-91-8956Crjqmmgoed of wisdom toothDERIK SIDELL endoscopy for ovarian cysts to drainDERIK SIDELL Vaccine refused by patientCOVID-19 vaccine dose declined( Confirmed )PERNELL SIDELL Plan of Treatment DateCare ActivityDetailAuthorStart: 32-05-7886XMU Vaccine (1 - 1-dose 75+ series)RSV Vaccine (1 - 1-dose 75+ series)[facility]tart: 87-18-0706Lvlcy BMI ScreeningAdult BMI ScreeningProMount St. Mary Hospital SystemStart: 95-86-5851Elxxisw ScreeningTobacco ScreeningProMount St. Mary Hospital SystemStart: 30-27-4596Emafkzf ScreeningTobacco ScreeningProRiverview Health Instituteca Health SystemStart: 01-05-2026 End: 90-12-8459XU MFM with or without consultUS MFM with or without consult Imaging Routine Multigravida of advanced maternal age in second trimester Antiphospholipid syndrome complicating , antepartum Gestational diabetes mellitus (GDM) in second trimester controlled on oral hypoglycemic drug AMA (advanced maternal age) gugdoaswylof93+, second trimester Hypothyroidism, unspecified type History of stroke History of loss in prior , currently in second trimester Hypothyroidism affecting in second trimester Family history of autism Hyponatremia Expected: 01/05/2026 (Approximate), Expires: 01/05/2026[facility] Work Phone: comment on above:Expected: 01/05/2026 (Approximate), Expires: 01/05/2026Start: 38-42-9865Ipabq BMI ScreeningAdult BMI Screening [facility]art: 85-41-2760Jgscxlu ScreeningTobacco Screening [facility] Centertart: 76-98-7643Fjmfw BMI ScreeningAdult BMI Screening [facility] Centertart: 03-17-2025 End: 84-01-5065Jxqdlcrycdvg consultation with uargxut8103/17/2025 8:30 AM EST Telemedicine [facility], [facility] Department of [address] [phone] Sam Callahan MD MPH [address] [place] [phone] [facility]: 03-10-2025 End: 94-05-8877Dgujesz encounter hbacbjewf65/11/2025 9:50 AM EST Routine [facility] [address] [place], [id number] Wilton Herrmann DO [address] [place], [place] [id number] SHILOH [place] OBGYNStart: 03-10-2025 End: 87-29-7847Xinqmuzcioac consultation with dadfviy2403/10/2025 8:00 AM EST Telemedicine [facility]- [facility] at [facility] [address] [place] [address] Sana Palma MD [address] [place] [address] [facility]: 03-02-2025 End: 71-02-2602Xfkjwu-up wbgsmrnue74/03/2025 11:30 AM EST Visit (SP) Office Hematology/Oncology [address] [address] Katherine Negrete APRN.MACHINE BOBBIN WINDER [address] [place] [address] 2 month follow upHematology/OncologyComment on above:2 month follow upStart: 03-02-2025 End: 13-44-2905Qutfswp encounter lgbfadhye68/03/2025 11:15 AM EST Office Visit [facility] [address] [place] [address] labNortMunising Memorial Hospital LaboratoryComment on above:labStart: 02-23-2025 End: 36-24-2158Enciqqs encounter pmsgzyyre00/27/2025 9:00 AM EDT Routine NOMJaylan [place] OBGYN [address] [place], [id number] Wilton Herrmann DO [address] [place] [address] SHILOH [place] OBGYNStart: 02-18-2025 End: 40-78-1462ONG W Auto Differential panel - BloodCOMPLETE BLOOD COUNT AND DIFFERENTIAL Lab Routine 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) Vitamin D deficiency Primary hypercoagulable state (HCC) Expected: 02/18/2025, Expires: 05/20/2025leveland ClinicComment on above:Expected: 02/18/2025, Expires: 05/20/2025Start: 02-18-2025 End: 69-13-3858Sszmofetcshni metabolic 2000 panel - Serum or PlasmaCOMPREHENSIVE METABOLIC PANEL Lab Routine Antiphospholipid antibody positive Iron deficiency anemiasecondary to blood loss (chronic) Vitamin D deficiency Primary hypercoagulable state (HCC) Expected: 02/18/2025, Expires: 05/20/2025leveland ClinicComment on above:Expected: 02/18/2025, Expires: 05/20/2025Start: 02-16-2025 End: [id number] encounter procedureProMedica Rheumatology, A [facility] of [facility]art: [id number] for malignant neoplasm of cervixNOMS HealthcareStart: 02-09-2025 End: 64-75-1069NZ biophysical profile w non stress testUS biophysical profile w non stress test Imaging Routine Third trimester (HHS-HCC) 28 weeks gestation of (HHS-HCC) Anemia complicating childbirth (HHS-HCC) Anticoagulant long-term use Antiphospholipid antibody positive Blood pressure elevated without history of HTN Coagulation defect, unspecified (HHS-HCC) Expected: 02/09/2025 (Approximate), Expires: 08/10/2025 [facility] HealthcareComment on above:Expected: 02/09/2025 (Approximate), Expires: 08/10/2025Start: 02-09-2025 End: 39-54-5855FJ for pregnancyUS OB follow up transabdominal approach Imaging Routine Third trimester (HHS-HCC) 28 weeks gestation of (HHS-HCC) Anemia complicating childbirth (HHS-HCC) Anticoagulant long-term use Antiphospholipid antibody positive Blood pressure elevated without history of HTN Coagulation defect, unspecified (HHS-HCC) Expected: 02/09/2025, Expires: 06/12/2025NOMS HealthcareComment on above:Expected: 02/09/2025, Expires: 06/12/2025Start: 02-09-2025 End: 65-81-7405Lvbmgry encounter qjxigpjrg85/13/2025 10:30 AM EDT Routine NOMJaylan COLVIN [address] [place] [id number] Wilton Herrmann DO [address] [place] [address] [facility]iyush OBGYNStart: 02-06-2025 End: 03-29-1288Aelylejbchjk consultation with edrzuin7902/06/2025 2:00 PM EDT Telemedicine Maternal- Medicine at [place] [address] [place] [phone] Mukul Noyola MD [address] [facility], [address] [place] [address] [facility] 02-05-2025 End: 82-55-0119Nleoydx encounter hymcuzewi69/09/2025 1:00 PM EDT Appointment Maternal Medicine [place] [address] [facility] [address] [place] [address] [facility] Medicine [place]: 02-01-2025 End: 89-40-2405Irtm complete W/O contrastEcho complete W/O contrast Echocardiography Routine 22 weeks gestation of Antiphospholipid syndrome complicating , antepartum Multigravida of advanced maternal age in second trimester Expected: 02/01/2025 (Approximate), Expires: 01/01/2026 [facility] Work Phone: comment on above:Expected: 02/01/2025 (Approximate), Expires: 01/01/2026Start: 01-19-2025 End: 11-78-2343Qlhenxt encounter pqkgwpgno40/22/2025 9:00 AM EDT Routine NOMJaylan COLVIN [address] [facility] [id number] Wilton Herrmann, DO [address] [place] [address] [facility] [place] OBGYNStart: 01-13-2025 End: 93-19-4572Sxjshbracdcp consultation with msioqqf8501/13/2025 10:00 AM EDT Telemedicine Maternal- Medicine at [facility] [address] [facility] [place] [address] Roxana Mays PA-C [address], [id number] [facility]: 01-05-2025 End: 25-23-0443Pdxdzfg encounter zxqakvrpp30/08/2025 2:40 PM EDT Routine [facility] [address] [facility] [address] [place], [id number] Wilton Herrmann, DO [address] [place] [address] [place] [address] SH[facility] [place] OBGYNStart: 01-05-2025 End: lead ECGECG 12 lead unit performed ECG Routine Thyroid disease Gestational diabetes mellitus (GDM), antepartum, gestational diabetes method of control unspecified (HHS-HCC) Multigravida of advanced maternal age in second trimester (HHS-HCC) Lightheaded Dizziness Expected: 01/05/2025 (Approximate), Expires:01/05/2026[facility] HealthcareComment on above:Expected: 01/05/2025 (Approximate), Expires: 01/05/2026Start: 01-05-2025 End: 10-64-0605Bpzgrrcqjhcyor 2D completeEchocardiogram 2D complete Echocardiography Routine Thyroid disease Gestational diabetes mellitus (GDM), antepartum, gestational diabetes method of control unspecified (HHS-HCC) Multigravida of advanced maternal age in second trimester (HHS-HCC) Lightheaded Dizziness Expected: 01/05/2025 (Approximate), Expires: 01/05/2027[facility] Work Phone: comment on above:Expected: 01/05/2025 (Approximate), Expires: 01/05/2027Start: 01-01-2025 End: 60-22-9191Zkfglntjfnet consultation with fpjwcha9901/01/2025 2:30 PM EDT Telemedicine Maternal Medicine [place] [address] [address] Mukul Noyola MD [address] [facility], [address] [place] [id number] Maternal Medicine [place] [facility] [employer]: 01-01-2025 End: 17-06-6077IT MFM with or without consultUS MFM with [...] on above:Expected: 01/01/2025, Expires: 01/01/2026Start: 01-01-2025 End: 52-37-2861Ffnbnva encounter mnfgesnru10/04/2025 1:00 PM EDT Appointment Maternal Medicine [place] [address] [address] [place] Medicine [place]: 12-29-2024 COVID-19 Vaccine ( season)COVID-19 Vaccine ( season)[facility] HealthcareStart: 09-88-0800Ozvihqsis vaccinationMansfield Hospitaltart: 12-24-2024 End: 56-18-0874ODU W Auto Differential panel - BloodCOMPLETE BLOOD COUNT AND DIFFERENTIAL Lab Routine Primary hypercoagulable state (HCC) CVA, old, spee ch/language deficit Cerebral hyponatremia Personal history of TIA (transient ischemic attack) Expected: 12/24/2024, Expires: 03/25/2025[facility] Work Phone: Comment on above:Expected: 12/24/2024, Expires: 03/25/2025Start: 12-24-2024 End: 53-96-4419Phynvoeul (Vitamin B12) [Mass/volume] in Serum or PlasmaVITAMIN B12 Lab Routine Primary hypercoagulable state (HCC) CVA, old, speech/language deficit Cerebral hyponatremia Personal history of TIA (transient ischemic attack) Expected: 12/24/2024, Expires: 03/25/2025[facility] ClinicComment on above:Expected: 12/24/2024, Expires: 03/25/2025Start: 12-24-2024 End: 11-15-8103Vufkywsbimwmv metabolic 2000 panel - Serum or PlasmaCOMPREHENSIVE METABOLIC PANEL Lab Routine Primary hypercoagulable state (HCC) CVA, old, speech/language deficit Cerebral hyponatremia Personal history of TIA (transient ischemic attack) Expected: 12/24/2024, Expires: 03/25/2025[facility] Comment on above:Expected: 12/24/2024, Expires: 03/25/2025Start: 12-24-2024 End: 04-27-0905Slhhryjp [Mass/volume] in Serum or PlasmaFERRITIN Lab Routine Primary hypercoagulable state (HCC) CVA, old, speech/language deficit Cerebral hyponatremia Personal history of TIA (transient ischemic attack) Expected: 12/24/2024, Expires: 03/25/2025[facility] ClinicComment on above:Expected: 12/24/2024, Expires: 03/25/2025Start: 12-24-2024 End: 34-79-5598Qsie and Iron binding capacity panel - Serum or PlasmaIRON AND TIBC Lab Routine Primary hypercoagulable state (HCC) CVA, old, speech/language deficit Cerebral hyponatremia Personal history of TIA (transient ischemic attack) Expected: 12/24/2024, Expires: 03/25/2025[facility] ClinicComment on above:Expected: 12/24/2024, Expires: 03/25/2025Start: 12-23-2024 End: 93-31-894286692679-fahydzfowzglij D3 [Mass/volume] in Serum or PlasmaVITAMIN D 25 HYDROXY Lab Routine 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) Vitamin D deficiency Expected: 12/23/2024, Expires: 03/24/2025[facility] Work Phone: Comment on above:Expected: 12/23/2024, Expires: 03/24/2025Start: 12-22-2024 End: 21-40-4096Uosgxa-up ubssctxfa40/25/2025 1:30 PM EDT Visit (SP) Office Hematology/Oncology [address] [place], [place] [phone] Katherine Negrete, FAMILY PROTECTION SPECIALIST.MACHINE BOBBIN WINDER [address] [place] [address] 8 week follow up labHematology/OncologyComment on above:8 week follow up labStart: 12-22-2024 End: 85-79-1987Beomoht encounter /25/2025 1:15 PM EDT Office Visit [facility] [address] [facility] [place] [address] 8 week follow up labNortMunising Memorial Hospital LaboratoryComment on above:8 week follow up labStart: 12-17-2024 End: 21-58-8031Mwtdwugtfsla consultation with neldliz5612/17/2024 1:30 PM EDT Telemedicine Maternal- Medicine at [facility] [address] [place] [address] Alisa Saba, FAMILY PROTECTION SPECIALIST-MACHINE [employer]OBBIN WINDER [address] [place] [address] [facility]: 12-11-2024 End: 47-42-8036Mfkjhtk encounter qxylrzwpe93/14/2025 9:10 AM EDT Routine [facility]BG[facility] [address] [address] [place], [id number] Wilton Herrmann, DO [address] [place] [address] NOMS Piyush OBGYNStart: 12-03-2024 End: 40-63-6707Ujylrguyftdf consultation with nyesqoq8312/03/2024 2:00 PM EDT Telemedicine Maternal- Medicine at [facility] [address] [place] [phone] Alisa Saba, VICTOR HUGOMACHINE [address]INDER [address] [place] [address] [facility]: 11-20-2024 End: 44-07-0668Yeltc fetoprotein, maternalAlpha fetoprotein, maternal Lab Routine Second trimester ([facility]) Expected: 11/20/2024 (Approximate), Expires: 01/21/2025NOMS HealthcareComment on above:Expected: 11/20/2024 (Approximate), Expires: 01/21/2025Start: 11-20-2024 End: 84-33-9659Gaghmyx encounter qrnuxlrun20/24/2025 10:10 AM EDT Routine [facility] BCP OB [address] [facility] [facility] [place] [address] Wilton Herrmann, DO [address] [place] [address] NOMS BCP OBStart: 11-19-2024 End: 69-88-9189yixhnhdalu05/23/2025 9:30 AM EDT Support Visit Maternal- Medicine at [facility] [address] [place] [address] Lorena Enciso RN [address] [place] [address] Stephanie Quiros, Cindy Uribe, RD [address], [address] [place] [address] [facility]: 11-12-2024 End: 47-01-5080KI MFM with or without consultUS MFM with or without consult Imaging Routine Gestational diabetes mellitus (GDM), antepartum, gestational diabetes method of control unspecified Expected: 11/12/2024 (Approximate), Expires: 10/13/2025[facility] Work Phone: comment on above:Expected: 11/12/2024 (Approximate), Expires: 10/13/2025Start: 10-30-2024 End: 83-24-0087Uuxpdpb encounter mssosdwsn62/03/2025 10:40 AM EDT Routine [facility] BCP OB [address] [facility] [facility] [address] Wilton Herrmann, DO [address] [place] [address] NOMS BCP OBStart: 10-30-2024 End: 05-77-2455Xzurcbr encounter /03/2025 9:30 AM EDT Routine [facility] BCP OB [address] [facility] [place] [address] Wilton Herrmann, DO [address] [place] [address] ArrivedNOMS BCP OBComment on above: ArrivedStart: 10-28-2024 End: 69-84-4908Dpffda-up rjafjevai42/01/2025 2:30 PM EDT Visit (SP) Office Hematology/Oncology [address] [place] [address] [place], [place] [phone] Katherine Negrete, FAMILY PROTECTION SPECIALIST.MACHINE BOBBIN WINDER [address] [facility] [place] [address] 3 month follow upHematology/OncologyComment on above:3 month follow upStart: 10-28-2024 End: 26-36-7980Mlprlho encounter ynkckzhrw98/01/2025 2:15 PM EDT Office Visit [facility] [address] [place] [address] labs - patient prefers to come same dayNortMunising Memorial Hospital LaboratoryComment on above:labs - patient prefers to come same day Start: 10-27-2024 End: 19-09-9121Smxbvcn encounter gnmuudwfx38/30/2025 9:20 AM EDT Office Visit [facility] BCP OB [address] [place] [address] Wilton Herrmann, DO [address] [place] [address] NOMS BCP OBStart: 10-20-2024 End: 32-06-4516Pshgkubnexna / ancillary services nnuhblxtnr94/23/2025 1:00 PM EDT Ancillary Procedure [facility] BCP OB [address] [facility] [place] [address] NOMS BCP OBStart: 10-10-2024 End: 86-14-6526Hyyrzk-up xoczberuj98/13/2025 10:40 AM EDT Visit (SP) Office Hematology/Oncology [address] [facility] [place] [address] Kristofer Calix MD [address] [facility] [place] [address] 3 month follow upHematology/OncologyComment on above:3 month follow upStart: 10-10-2024 End: 07-76-9890Jkogasw encounter kuovmfsou21/13/2025 10:15 AM EDT Office Visit [facility] [address] [place] [address] labs - patient prefers to come same dayNoThe Hospitals of [facility]ky [facility] LaboratoryComment on above:labs - patient prefers to come same day Start: 10-02-2024 End: 76-05-0084RTM/RhABO/Rh Lab Routine Missed menses , unspecified gestational age Expected: 10/02/2024 (Approximate), Expires: 10/02/2025[facility] HealthcareComment on above:Expected: 10/02/2024 (Approximate), Expires: 10/02/2025Start: 10-02-2024 End: 60-88-2708Mwxqi type and Indirect antibody screen panel - BloodType and screen Lab Routine Missed menses , unspecified gestational age Expected: 10/02/2024 (Approximate), Expires: 10/02/2025[facility] Work Phone: comment on above:Expected: 10/02/2024 (Approximate), Expires: 10/02/2025Start: 10-02-2024 End: 73-07-9502Ufovz of abuse panel - Urine by Screen methodRapid drug screen, urine Lab Routine , unspecified gestational age Encounter for supervision of normal first in first trimester Expected: 10/02/2024 (Approximate), Expires: 10/02/2025[facility] HealthcareComment on above:Expected: 10/02/2024 (Approximate), Expires: 10/02/2025Start: 10-02-2024 End: 35-00-1791zmgvcitikm92/05/2025 1:00 PM EDT Initial [facility] BCP OB [address] [place] [address] NOMS BCP OBStart: 10-02-2024 End: 73-43-1412Iuqdyhizdfkr / ancillary services wrnehevbsp28/05/2025 12:30 PM EDT Ancillary Procedure [facility] [address] [place], [place] [address] NOMS BCP OBStart: 08-27-2024 End: 34-00-2564Isdetu-up eoyyyxtnl17/30/2025 2:00 PM EDT Visit (SP) Office Hematology/Oncology [address] [place] [address] [place], [place] [phone] Kristofer Calix MD [address] [place] [address] 3 month follow upHematology/OncologyComment on above:3 month follow upStart: 08-27-2024 End: 72-55-8085Rfsuizz encounter uzivslzni71/30/2025 1:45 PM EDT Office Visit [facility] [address] [place] [address] labs - patient prefers to come same dayNortMunising Memorial Hospital LaboratoryComment on above:labs - patient prefers to come same day Start: 08-26-2024 End: 744813-djgpoeopfedmtc D3 [Mass/volume] in Serum or PlasmaVITAMIN D 25 HYDROXY Lab Routine 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 Vitamin D deficiency Expected: 08/26/2024, Expires: 11/25/2024[facility] ClinicComment on above: Expected: 08/26/2024, Expires: 11/25/2024Start: 08-26-2024 End: 93-37-8661BNG W Auto Differential panel - BloodCOMPLETE BLOOD COUNT AND DIFFERENTIAL Lab Routine 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 Vitamin D deficiency Expected: 08/26/2024, Expires: 11/25/2024[facility] Work Phone: Comment on above:Expected: 08/26/2024, Expires: 11/25/2024Start: 08-26-2024 End: 64-04-0879Cjkaiekpd (Vitamin B12) [Mass/volume] in Serum or PlasmaVITAMIN B12 Lab Routine 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 Vitamin D deficiency Expected: 08/26/2024, Expires: 11/25/2024[facility] ClinicComment on above: Expected: 08/26/2024, Expires: 11/25/2024Start: 08-26-2024 End: 88-82-5618Bczpmqpuijtzt metabolic 2000 panel - Serum or PlasmaCOMPREHENSIVE METABOLIC PANEL Lab Routine Antiphospholipid antibody positive Iron deficiency anemiasecondary to blood loss (chronic) Malaise and fatigue Vitamin D deficiency Expected: 08/26/2024, Expires: 11/25/2024[facility] ClinicComment on above: Expected: 08/26/2024, Expires: 11/25/2024Start: 08-26-2024 End: 22-64-2388Gcihqsik [Mass/volume] in Serum or PlasmaFERRITIN Lab Routine 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) Malaise and fatigue Vitamin D deficiency Expected: 08/26/2024, Expires: 11/25/2024[facility] ClinicComment on above:Expected: 08/26/2024, Expires: 11/25/2024Start: 08-26-2024 End: 42-20-3064Rhhh and Iron binding capacity panel - Serum or PlasmaIRON AND TIBC Lab Routine 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 Vitamin D deficiency Expected: 08/26/2024, Expires: 11/25/2024[facility] ClinicComment on above: Expected: 08/26/2024, Expires: 11/25/2024Start: 08-26-2024 End: 60-29-3481Laqzrziopkg [Units/volume] in Serum or PlasmaTHYROID STIMULATING HORMONE Lab Routine Antiphospholipid antibody positive 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) Malaise and fatigue Vitamin D deficiency Expected: 08/26/2024, Expires: 11/25/2024[facility] ClinicComment on above: Expected: 08/26/2024, Expires: 11/25/2024Start: 07-24-2024 End: 84-35-6627XykzirophwjzEdhqjyaoswme Lab Routine Irregular menstrual cycle Expected: 07/24/2024 (Approximate), Expires: 07/24/2025[facility] Work Phone: comment on above:Expected: 07/24/2024 (Approximate), Expires: 07/24/2025Start: 01-39-6969OKzI,Tdap and Td Vaccines (2 - Td or Tdap) DTaP,Tdap and Td Vaccines (2 - Td or Tdap)[facility]WelVU SystemStart: 05-22-0221BPbF/Tdap/Td vaccine (2 - Td or Tdap)DTaP/Tdap/Td vaccine (2 - Td or Tdap)[facility]ITALStart: 38-32-2142Vqnnl microalbumin profile [facility] Hospitaltart: 06-23-2024 End: 11-10-9376FS PelvisUS Pelvis w/ TV Imaging Routine Vaginal bleeding Vaginal discharge Pelvic pain in female Expected: 06/23/2024, Expires: 06/23/2025[facility] HealthcareComment on above:Expected: 06/23/2024, Expires: 06/23/2025Start: 06-02-2024 End: 87-29-0263Etkwozl encounter rizrugmxm69/03/2025 11:20 AM EST Office Visit N[facility] PO OB [address] [facility] [place] [phone] Wilton Herrmann, DO [address] [facility] [place] [address] NOMS PO OBStart: 05-21-2024 End: 99-77-0584Ursrcr-up gdgwnkkia49/22/2025 2:20 PM EST Visit (SP) Office Hematology/Oncology [address] [facility] [place], [place] [phone] Kristofer Calix MD [address] [address] 3 month follow up with labHematology/OncologyComment on above:3 month follow up with labStart: 05-21-2024 End: 70-95-9138Tbsfwbe encounter vnrjguzcp98/22/2025 2:00 PM EST Office Visit [facility] [address] [place] [address] [place] [address] 3 month follow up with labNortMunising Memorial Hospital LaboratoryComment on above:3 month follow up with labStart: 05-06-2024 End: 42-43-3230QT for pregnancyNOMS Healthcare Work Phone: comment on above:Expected: 05/06/2024, Expires: 05/06/2025Start: 05-06-2024 End: 88-92-2372Gcxznqr encounter /07/2025 1:50 PM EST Routine N[facility] BCP OB [address] [place] [phone] Wilton Herrmann DO [address] [facility] [place] [address] NOMS BCP OBStart: 04-09-2024 End: 35-46-6607Zwwoyc-up encounterHematology/OncologyComment on above:3 month follow up with labStart: 04-09-2024 End: 40-81-7797Fbyoeue encounter procedureNoCabell Huntington Hospital LaboratoryComment on above:3 month follow up with labStart: 04-04-2024 End: 67-67-0630BZB/RhABO/Rh Lab Routine Missed menses , unspecified gestational age Expected: 04/04/2024 (Approximate), Expires: 04/04/2025N[facility] HealthcareComment on above:Expected: 04/04/2024 (Approximate), Expires: 04/04/2025Start: 04-04-2024 End: 20-03-9077Etogy type and Indirect antibody screen panel - BloodType and screen Lab Routine Missed menses , unspecified gestational age Expected: 04/04/2024 (Approximate), Expires: 04/04/2025[facility] Work Phone: comment on above:Expected: 04/04/2024 (Approximate), Expires: 04/04/2025Start: 04-04-2024 End: 46-71-2126Oruev of abuse panel - Urine by Screen methodRapid drug screen, urine Lab Routine , unspecified gestational age Encounter for supervision of normal first in first trimester Expected: 04/04/2024 (Approximate), Expires: 04/04/2025N[facility] HealthcareComment on above:Expected: 04/04/2024 (Approximate), Expires: 04/04/2025Start: 04-04-2024 End: 78-56-7986LH Pelvis transvaginalUS OB transvaginal Imaging Routine Missed menses Expected: 04/04/2024 (Approximate), Expires: 04/04/2025[facility] Comment on above:Expected: 04/04/2024 (Approximate), Expires: 04/04/2025Start: 04-02-2024 End: 780411-vvtrgxkcwkdwnp D3 [Mass/volume] in Serum or PlasmaVITAMIN D 25 HYDROXY Lab Routine Iron deficiency anemia secondary to blood loss (chronic) Vitamin Ddeficiency Malaise and fatigue Expected: 04/02/2024 (Approximate), Expires: 07/02/2024[facility] ClinicComment on above:Expected: 04/02/2024 (Approximate), Expires: 07/02/2024Start: 04-02-2024 End: 48-28-3294GOK W Auto Differential panel - BloodCOMPLETE BLOOD COUNT AND DIFFERENTIAL Lab Routine Iron deficiency anemia secondary to blood loss (ch ronic) Vitamin D deficiency Malaise and fatigue Expected: 04/02/2024 (Approximate), Expires: 01/01/2025[facility] ClinicComment on above:Expected: 04/02/2024 (Approximate), Expires: 01/01/2025Start: 04-02-2024 End: 41-26-2670Msdmzjkrz (Vitamin B12) [Mass/volume] in Serum or PlasmaVITAMIN B12 Lab Routine Iron deficiency anemia secondary to blood loss (chronic) Vitamin D deficiency Malaise and fatigue Expected: 04/02/2024 (Approximate), Expires: 01/01/2025[facility] ClinicComment on above:Expected: 04/02/2024 (Approximate), Expires: 01/01/2025Start: 04-02-2024 End: 97-01-0672Myifbgngoqdkf metabolic 2000 panel - Serum or PlasmaCOMPREHENSIVE METABOLIC PANEL Lab Routine Iron deficiency anemia secondary to blood loss (chronic) Vitamin D deficiency Malaise and fatigue Expected: 04/02/2024 (Approximate), Expires: 01/01/2025[facility] ClinicComment on above:Expected: 04/02/2024 (Approximate), Expires: 01/01/2025Start: 04-02-2024 End: 74-17-5823Djqlqymb [Mass/volume] in Serum or PlasmaFERRITIN Lab Routine Iron deficiency anemia secondary to blood loss (chronic) Vitamin D deficiency M alaise and fatigue Expected: 04/02/2024 (Approximate), Expires: 01/01/2025 [facility]Comment on above:Expected: 04/02/2024 (Approximate), Expires: 01/01/2025Start: 04-02-2024 End: 31-70-7754Uihlii [Mass/volume] in Serum or PlasmaFOLATE, SERUM Lab Routine Iron deficiency anemia secondary to blood loss (chronic) Vitamin D deficiency Malaise and fatigue Expected: 04/02/2024 (Approximate), Expires: 01/01/2025 [facility]healthComment on above:Expected: 04/02/2024 (Approximate), Expires: 01/01/2025Start: 04-02-2024 End: 67-53-5123Eggi and Iron binding capacity panel - Serum or PlasmaIRON AND TIBC Lab Routine Iron deficiency anemia secondary to blood loss (chronic) Vitamin D deficiency Malaise and fatigue Expected: 04/02/2024 (Approximate), Expires: 01/01/2025[facility] ClinicComment on above:Expected: 04/02/2024 (Approximate), Expires: 01/01/2025Start: 04-02-2024 End: 25-41-7963Wwctdnbuycf [Units/volume] in Serum or PlasmaTHYROID STIMULATING HORMONE Lab Routine Iron deficiency anemia secondary to blood loss (chronic) Vit vogel D deficiency Malaise and fatigue Expected: 04/02/2024 (Approximate), Expires: 07/02/2024[facility] Work Phone: Comment on above:Expected: 04/02/2024 (Approximate), Expires: 07/02/2024Start: 01-05-2024 End: 15-58-3786EKT W Auto Differential panel - BloodCOMPLETE BLOOD COUNT AND DIFFERENTIAL Lab Routine Iron deficiency anemia secondary to blood loss (ch ronic) Vitamin D deficiency Malaise and fatigue Expected: 01/05/2024 (Approximate), Expires: 01/01/2025[facility] ClinicComment on above:Expected: 01/05/2024 (Approximate), Expires: 01/01/2025Start: 01-05-2024 End: 16-42-6427Kcyjfcbsjgbnd metabolic 2000 panel - Serum or PlasmaCOMPREHENSIVE METABOLIC PANEL Lab Routine Iron deficiency anemia secondary to blood loss (chronic) Vitamin D deficiency Malaise and fatigue Expected: 01/05/2024 (Approximate), Expires: 01/01/2025[facility] ClinicComment on above:Expected: 01/05/2024 (Approximate), Expires: 01/01/2025Start: 01-02-2024 End: 82-46-6726Swqkhj-up omuhguezf54/04/2024 1:45 PM EDT Visit (SP) Office Hematology/Oncology [address] [place] [address] [place], [place] [phone] Kristofer Calix MD [address] [facility] [place] [address] 8 WEEK FOLLOW UPHematology/OncologyComment on above:8 WEEK FOLLOW UPStart: 01-02-2024 End: 33-02-4018Bauckpj encounter fddjnfdof67/04/2024 1:30 PM EDT Office Visit [facility] [address] [place], [place] [address] [address] 8 WEEK FOLLOW UPNortMunising Memorial Hospital LaboratoryComment on above:8 WEEK FOLLOW UPStart: 10-57-8764Ibwae-19 Vaccine ( season)Covid-19 Vaccine ( season)[facility]: 26-70-1417Ehkbe-19 Vaccine ( season)Covid-19 Vaccine ( season)[facility]: 72-15-2013Sqqgtrqrp vaccinationTrihealth Start: 11-29-2023 End: 95-94-7671awuylnkxft56/01/2024 1:30 PM EDT [facility] Hematology/Oncology [address] [place] [address] [place] [address] VENOFER 300Hematology/OncologyComment on above:VENOFER 300Start: 11-22-2023 End: 18-55-1625ropqljtzfu75/25/2024 1:30 PM EDT Infusion Center Hematology/Oncology [address] [facility] [address] VENOFER 300Hematology/OncologyComment on above:VENOFER 300Start: 11-15-2023 End: 31-33-3919jtddimyrqm67/18/2024 1:30 PM EDT [facility] [address] [place] [address] [place] [address] VENOFER 300Hematology/OncologyComment on above:VENOFER 300Start: 09-13-2023 End: 902391-usvsrmffjksexz D3 [Mass/volume] in Serum or PlasmaVITAMIN D 25 HYDROXY Lab Routine Vitamin D deficiency 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) Expected: 09/13/2023 (Approximate), Expires: 12/13/2023[facility] Work Phone: Comment on above:Expected: 09/13/2023 (Approximate), Expires: 12/13/2023Start: 09-13-2023 End: 80-84-4056Fqweoou.ionized [Moles/volume] in BloodCALCIUM IONIZED BLOOD Lab Routine Vitamin D deficiency 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) Expected: 09/13/2023 (Approximate), Expires: 12/13/2023 [facility] Work Phone: Comment on above:Expected: 09/13/2023 (Approximate), Expires: 12/13/2023Start: 09-13-2023 End: 88-28-4888JVK W Auto Differential panel - BloodCBC + DIFF Lab Routine Vitamin D deficiency 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) Expected: 09/13/2023 (Approximate), Expires: 06/15/2024[facility] Work Phone: Comment on above:Expected: 09/13/2023 (Approximate), Expires: 06/15/2024Start: 09-13-2023 End: 93-80-3392Hmozchski (Vitamin B12) [Mass/volume] in Serum or PlasmaVITAMIN B12 BLOOD Lab Routine Vitamin D deficiency 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) Expected: 09/13/2023 (Approximate), Expires: 06/15/2024[facility] Work Phone: Comment on above:Expected: 09/13/2023 (Approximate), Expires: 06/15/2024Start: 09-13-2023 End: 03-58-3237Mzvjtttghnrwa metabolic 2000 panel - Serum or PlasmaCOMP METABOLIC PANEL Lab Routine Vitamin D deficiency 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) Expected: 09/13/2023 (Approximate), Expires: 06/15/2024[facility] Work Phone: Comment on above:Expected: 09/13/2023 (Approximate), Expires: 06/15/2024Start: 09-13-2023 End: 16-95-7444Ofecjqkq [Mass/volume] in Serum or PlasmaFERRITIN BLD Lab Routine Vitamin D deficiency 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) Expected: 09/13/2023 (Approximate), Expires: 06/15/2024[facility] Work Phone: Comment on above:Expected: 09/13/2023 (Approximate), Expires: 06/15/2024Start: 09-13-2023 End: 39-73-9374Vbivxq [Mass/volume] in Serum or PlasmaFOLATE SERUM Lab Routine Vitamin D deficiency 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) Expected: 09/13/2023 (Approximate), Expires: 06/15/2024[facility] Work Phone: Comment on above:Expected: 09/13/2023 (Approximate), Expires: 06/15/2024Start: 09-13-2023 End: 06-03-3426Vkvz and Iron binding capacity panel - Serum or PlasmaIRON + TIBC Lab Routine Vitamin D deficiency 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) Expected: 09/13/2023 (Approximate), Expires: 06/15/2024 [facility] Work Phone: Comment on above:Expected: 09/13/2023 (Approximate), Expires: 06/15/2024Start: 09-13-2023 End: 91-39-1924Ncgacxvsah.intact [Mass/volume] in Serum or PlasmaPTH INTACT BLD Lab Routine Vitamin D deficiency 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) Expected: 09/13/2023 (Approximate), Expires: 12/13/2023 [facility] Work Phone: Comment on above:Expected: 09/13/2023 (Approximate), Expires: 12/13/2023Start: 06-15-2023 End: 707571-fvalgpllgzasgc D3 [Mass/volume] in Serum or PlasmaVITAMIN D 25 HYDROXY Lab Routine Vitamin D deficiency Expected: 06/15/2023 (Approximate), Expires: 09/14/2023[facility] Work Phone: Comment on above:Expected: 06/15/2023 (Approximate), Expires: 09/14/2023Start: 06-15-2023 End: 72-89-4999Uzsktgm.ionized [Moles/volume] in BloodCALCIUM IONIZED BLOOD Lab Routine Vitamin D deficiency Hypercalcemia Expected: 06/15/2023 (Approximate), Expires: 09/14/2023[facility] Work Phone: Comment on above:Expected: 06/15/2023 (Approximate), Expires: 09/14/2023Start: 06-15-2023 End: 44-62-0295ANB W Auto Differential panel - BloodCBC + DIFF Lab Routine Iron deficiency anemia secondary to blood loss (chronic) Expected: 06/15/2023 (Approximate), Expires: 06/12/2024[facility] Work Phone: Comment on above:Expected: 06/15/2023 (Approximate), Expires: 06/12/2024Start: 06-15-2023 End: 73-00-4708Ztpxdlnkt (Vitamin B12) [Mass/volume] in Serum or PlasmaVITAMIN B12 BLOOD Lab Routine Iron deficiency anemia secondary to blood loss (chronic) Expected: 06/15/2023 (Approximate), Expires: 06/12/2024[facility] Work Phone: Comment on above:Expected: 06/15/2023 (Approximate), Expires: 06/12/2024Start: 06-15-2023 End: 05-54-6641Esxzeeismonws metabolic 2000 panel - Serum or PlasmaCOMP METABOLIC PANEL Lab Routine Iron deficiency anemia secondary to blood loss (chronic) Expected:06/15/2023 (Approximate), Expires: 06/12/2024[facility] Work Phone: Comment on above:Expected: 06/15/2023 (Approximate), Expires: 06/12/2024Start: 06-15-2023 End: 63-39-5673Huywinad [Mass/volume] in Serum or PlasmaFERRITIN BLD Lab Routine Iron deficiency anemia secondary to blood loss (chronic) Expected: 06/15/2023 (Approximate), Expires: 06/12/2024[facility] Work Phone: Comment on above:Expected: 06/15/2023 (Approximate), Expires: 06/12/2024Start: 06-15-2023 End: 11-75-5737Ujqkhf [Mass/volume] in Serum or PlasmaFOLATE SERUM Lab Routine Iron deficiency anemia secondary to blood loss (chronic) Expected: 06/15/2023 (Approximate), Expires: 06/12/2024[facility] Work Phone: Comment on above:Expected: 06/15/2023 (Approximate), Expires: 06/12/2024Start: 06-15-2023 End: 59-96-0267Lukp and Iron binding capacity panel - Serum or PlasmaIRON + TIBC Lab Routine Iron deficiency anemia secondary to blood loss (chronic) Expected: 06/15/2023 (Approximate), Expires: 06/12/2024[facility] Work Phone: Comment on above:Expected: 06/15/2023 (Approximate), Expires: 06/12/2024Start: 06-15-2023 End: 88-51-9585RVB, INTACT (WITHOUT CALCIUM)PTH, INTACT (WITHOUT CALCIUM) Lab Routine Vitamin D deficiency Hypercalcemia Expected: 06/15/2023 (Approximate), Expires: 09/14/2023[facility] Work Phone: Comment on above:Expected: 06/15/2023 (Approximate), Expires: 09/14/2023Start: 06-15-2023 End: 74-85-1952Cdnzyrbgoyj [Units/volume] in Serum or PlasmaTSH BLD Lab Routine Malaise and fatigue Expected: 06/15/2023 (Approximate), Expires: 09/14/2023 [facility] Work Phone: Comment on above:Expected: 06/15/2023 (Approximate), Expires: 09/14/2023Start: 06-14-2023 End: 674777-uxhyppqdytbbhp D3 [Mass/volume] in Serum or PlasmaVITAMIN D 25 HYDROXY Lab Routine Hypercalcemia Vitamin D deficiency Expected: 06/14/2023 (Approximate), Expires: 09/13/2023[facility] Work Phone: Comment on above:Expected: 06/14/2023 (Approximate), Expires: 09/13/2023Start: 06-14-2023 End: 16-27-4514Joqtnec.ionized [Moles/volume] in BloodCALCIUM IONIZED BLOOD Lab Routine Hypercalcemia Vitamin D deficiency Expected: 06/14/2023 (Approximate), Expires: 09/13/2023[facility] Work Phone: Comment on above:Expected: 06/14/2023 (Approximate), Expires: 09/13/2023Start: 06-14-2023 End: 43-14-3186ZYP, INTACT (WITHOUT CALCIUM)PTH, INTACT (WITHOUT CALCIUM) Lab Routine Hypercalcemia Vitamin D deficiency Expected: 06/14/2023 (Approximate), Expires: 09/13/2023[facility] Work Phone: Comment on above:Expected: 06/14/2023 (Approximate), Expires: 09/13/2023Start: 06-14-2023 End: 60-24-2350Ubjwocvlbej [Units/volume] in Serum or PlasmaTSH BLD Lab Routine Hypercalcemia Malaise and fatigue Expected: 06/14/2023 (Approximate), Expires: 0 09/13/2023[facility] Work Phone: Comment on above:Expected: 06/14/2023 (Approximate), Expires: 09/13/2023Start: 05-14-2023 End: 41-59-1819HDT W Auto Differential panel - BloodCBC + DIFF Lab Routine Primary hypercoagulable state (HCC) Iron deficiency anemia secondary to blood loss (chronic) Vitamin D deficiency CVA, old, 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) Expected: 05/14/2023 (Approximate), Expires: 03/19/2024[facility] Work Phone: Comment on above:Expected: 05/14/2023 (Approximate), Expires: 03/19/2024Start: 05-14-2023 End: 57-50-6675Bllyabsbl (Vitamin B12) [Mass/volume] in Serum or PlasmaVITAMIN B12 BLOOD Lab Routine Primary hypercoagulable state (HCC) Iron deficiency anemia secondary to blood loss (chronic) Vitamin D deficiency CVA, old, 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) Expected: 05/14/2023 (Approximate), Expires: 03/19/2024[facility] Work Phone: Comment on above:Expected: 05/14/2023 (Approximate), Expires: 03/19/2024Start: 05-14-2023 End: 57-74-2142Reaifnwpwxbhn metabolic 2000 panel - Serum or PlasmaCOMP METABOLIC PANEL Lab Routine Primary hypercoagulable state (HCC) Iron deficiency anemia secondary to blood loss (chronic) Vitamin D deficiency CVA, old, 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) Expected: 05/14/2023 (Approximate), Expires: 03/19/2024[facility] Work Phone: Comment on above:Expected: 05/14/2023 (Approximate), Expires: 03/19/2024Start: 05-14-2023 End: 17-71-9396Xfrbgocf [Mass/volume] in Serum or PlasmaFERRITIN BLD Lab Routine Primary hypercoagulable state (HCC) Iron deficiency anemia secondary to blood loss (chronic) Vitamin D deficiency CVA, old, 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) Expected: 05/14/2023 (Approximate), Expires: 03/19/2024[facility] Work Phone: Comment on above:Expected: 05/14/2023 (Approximate), Expires: 03/19/2024Start: 05-14-2023 End: 52-94-0317Gsfzdl [Mass/volume] in Serum or PlasmaFOLATE SERUM Lab Routine Primary hypercoagulable state (HCC) Iron deficiency anemia secondary to blood loss (chronic) Vitamin D deficiency CVA, old, 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) Expected: 05/14/2023 (Approximate), Expires: 03/19/2024[facility] Work Phone: Comment on above:Expected: 05/14/2023 (Approximate), Expires: 03/19/2024Start: 05-14-2023 End: 17-87-6490Ivzw and Iron binding capacity panel - Serum or PlasmaIRON + TIBC Lab Routine Primary hypercoagulable state (HCC) Iron deficiency anemia secondary to blood loss (chronic) Vitamin D deficiency CVA, old, 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) Expected: 05/14/2023 (Approximate), Expires: 03/19/2024[facility] Work Phone: Comment on above:Expected: 05/14/2023 (Approximate), Expires: 03/19/2024Start: 74-41-1594Wqgijpzemm Health ScreeningBehavioral Health ScreeningMansfield Hospitaltart: 50-53-0493Sjsairltip AssessmentDepression AssessmentCleOhioHealth Riverside Methodist Hospitaltart: 02-16-2023 End: 864304-poqlxxcjfjvsng D3 [Mass/volume] in Serum or PlasmaVITAMIN D 25 HYDROXY Lab Routine Primary hypercoagulable state (HCC) Iron deficiency anemia secondary to blood loss (chronic) Vitamin D deficiency Expected: 02/16/2023 (Approximate), Expires: 04/18/2023[facility] Work Phone: Comment on above:Expected: 02/16/2023 (Approximate), Expires: 04/18/2023Start: 02-16-2023 End: 57-60-8534IQC W Auto Differential panel - BloodCBC + DIFF Lab Routine Primary hypercoagulable state (HCC) Iron deficiency anemia secondary to blood loss (chronic) Expected: 02/16/2023 (Approximate), Expires: 12/23/2023[facility] Work Phone: Comment on above:Expected: 02/16/2023 (Approximate), Expires: 12/23/2023Start: 02-16-2023 End: 33-03-9429Bttetobja (Vitamin B12) [Mass/volume] in Serum or PlasmaVITAMIN B12 BLOOD Lab Routine Primary hypercoagulable state (HCC) Iron deficiency anemia secondary to blood loss (chronic) Expected: 02/16/2023 (Approximate), Expires: 12/23/2023[facility] Work Phone: Comment on above:Expected: 02/16/2023 (Approximate), Expires: 12/23/2023Start: 02-16-2023 End: 79-66-6914Jqfnkaalyvtgi metabolic 2000 panel - Serum or PlasmaCOMP METABOLIC PANEL Lab Routine Primary hypercoagulable state (HCC) Iron deficiency anemia secondary to blood loss (chronic) Expected: 02/16/2023 (Approximate), Expires: 12/23/2023[facility] Work Phone: Comment on above:Expected: 02/16/2023 (Approximate), Expires: 12/23/2023Start: 02-16-2023 End: 96-76-6740Ipnhfatc [Mass/volume] in Serum or PlasmaFERRITIN BLD Lab Routine Primary hypercoagulable state (HCC) Iron deficiency anemia secondary to blood loss (chronic) Expected: 02/16/2023 (Approximate), Expires: 12/23/2023[facility] Work Phone: Comment on above:Expected: 02/16/2023 (Approximate), Expires: 12/23/2023Start: 02-16-2023 End: 56-00-0600Tvvuft [Mass/volume] in Serum or PlasmaFOLATE SERUM Lab Routine Primary hypercoagulable state (HCC) Iron deficiency anemia secondary to blood loss (chronic) Expected: 02/16/2023 (Approximate), Expires: 12/23/2023[facility] Work Phone: Comment on above:Expected: 02/16/2023 (Approximate), Expires: 12/23/2023Start: 02-16-2023 End: 06-99-7213Zjfs and Iron binding capacity panel - Serum or PlasmaIRON + TIBC Lab Routine Primary hypercoagulable state (HCC) Iron deficiency anemia secondary to blood loss (chronic) Expected: 02/16/2023 (Approximate), Expires: 12/23/2023[facility] Work Phone: Comment on above:Expected: 02/16/2023 (Approximate), Expires: 12/23/2023Start: 33-92-7821Nzqkb-19 Vaccine ( season)Covid- 19 Vaccine ( season)[facility]: 91-20-3316Ukcglsivc vaccinationMansfield Hospitaltart: 15-62-9447RQU TESTINGPAP TESTINGMansfield Hospitaltart: 02-54-4917Jpbdksmkc for malignant neoplasm of cervixPap Testing [facility]: 11-28-2022 End: 58-30-1651HLT W Auto Differential panel - BloodCBC + DIFF Lab Routine Primary hypercoagulable state (HCC) CVA, old, speech/language deficit Cerebral hyponatremia Expected: 11/28/2022 (Approximate), Expires: 10/04/2023[facility] Work Phone: Comment on above:Expected: 11/28/2022 (Approximate), Expires: 10/04/2023Start: 11-28-2022 End: 96-73-5497Nlkgbqzvg (Vitamin B12) [Mass/volume] in Serum or PlasmaVITAMIN B12 BLOOD Lab Routine Primary hypercoagulable state (HCC) CVA, old, speech/language deficitCerebral hyponatremia Expected: 11/28/2022 (Approximate), Expires: 10/04/2023[facility] Work Phone: Comment on above:Expected: 11/28/2022 (Approximate), Expires: 10/04/2023Start: 11-28-2022 End: 76-45-3061Rgavwxtmhskao metabolic 2000 panel - Serum or PlasmaCOMP METABOLIC PANEL Lab Routine Primary hypercoagulable state (HCC) CVA, old, speech/language deficit Cerebral hyponatremia Expected: 11/28/2022 (Approximate), Expires: 10/04/2023[facility] Work Phone: Comment on above:Expected: 11/28/2022 (Approximate), Expires: 10/04/2023Start: 11-28-2022 End: 21-84-3966Remooplr [Mass/volume] in Serum or PlasmaFERRITIN BLD Lab Routine Primary hypercoagulable state (HCC) CVA, old, speech/language deficit Cerebral hyponatremia Expected: 11/28/2022 (Approximate), Expires: 10/04/2023[facility] Work Phone: Comment on above:Expected: 11/28/2022 (Approximate), Expires: 10/04/2023Start: 11-28-2022 End: 17-46-2652Rjjlou [Mass/volume] in Serum or PlasmaFOLATE SERUM Lab Routine Primary hypercoagulable state (HCC) CVA, old, speech/language deficit Cerebral hyponatremia Expected: 11/28/2022 (Approximate), Expires: [address] [place] [address] Work Phone: Comment on above:Expected: 11/28/2022 (Approximate), Expires: 10/04/2023Start: 11-28-2022 End: 29-87-6671Lmvt and Iron binding capacity panel - Serum or PlasmaIRON + TIBC Lab Routine Primary hypercoagulable state (HCC) CVA, old, speech/language deficit Cerebral hyponatremia Expected: 11/28/2022 (Approximate), Expires: 10/04/2023[facility] Work Phone: Comment on above:Expected: 11/28/2022 (Approximate), Expires: 10/04/2023Start: 09-21-2022 End: 87-35-3203KLU W Auto Differential panel - BloodCBC + DIFF Lab Routine Primary hypercoagulable state (HCC) 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, old, speech/language deficit Expected: 09/21/2022 (Approximate), Expires: 07/28/2023[facility] Work Phone: Comment on above:Expected: 09/21/2022 (Approximate), Expires: 07/28/2023Start: 09-21-2022 End: 14-93-9827Dvctuxxwk (Vitamin B12) [Mass/volume] in Serum or PlasmaVITAMIN B12 BLOOD Lab Routine Primary hypercoagulable state (HCC) 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, old, speech/language deficit Expected: 09/21/2022 (Approximate), Expires: 07/28/2023[facility] Work Phone: Comment on above:Expected: 09/21/2022 (Approximate), Expires: 07/28/2023Start: 09-21-2022 End: 77-89-3879Mhgffvjnubitw metabolic 2000 panel - Serum or PlasmaCOMP METABOLIC PANEL Lab Routine Primary hypercoagulable state (HCC) 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, old, speech/language deficit Expected: 09/21/2022 (Approximate), Expires: 07/28/2023[facility] Work Phone: Comment on above:Expected: 09/21/2022 (Approximate), Expires: 07/28/2023Start: 09-21-2022 End: 89-68-8539Lkgawagg [Mass/volume] in Serum or PlasmaFERRITIN BLD Lab Routine Primary hypercoagulable state (HCC) 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, old, speech/language deficit Expected: 09/21/2022 (Approximate), Expires: 07/28/2023[facility] Work Phone: Comment on above:Expected: 09/21/2022 (Approximate), Expires: 07/28/2023Start: 09-21-2022 End: 37-40-7676Kbzldl [Mass/volume] in Serum or PlasmaFOLATE SERUM Lab Routine Primary hypercoagulable state (HCC) 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, old, speech/language deficit Expected: 09/21/2022 (Approximate), Expires: 07/28/2023[facility] Work Phone: Comment on above:Expected: 09/21/2022 (Approximate), Expires: 07/28/2023Start: 09-21-2022 End: 07-14-6098Ufng and Iron binding capacity panel - Serum or PlasmaIRON + TIBC Lab Routine Primary hypercoagulable state (HCC) 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, old, speech/language deficit Expected: 09/21/2022 (Approximate), Expires: 07/28/2023[facility] Work Phone: Comment on above:Expected: 09/21/2022 (Approximate), Expires: 07/28/2023Start: 95-93-8326JUOCUZJXEM ASSESSMENTDEPRESSION ASSESSMENT [facility]: 01-30-2022 End: 63-29-3254Ootvozih [Mass/volume] in Serum or PlasmaFERRITIN BLD Lab Routine Anemia, unspecified type Expected: 01/30/2022, Expires: 01/30/2023[facility] Work Phone: Comment on above:Expected: 01/30/2022, Expires: 01/30/2023Start: 01-30-2022 End: 38-28-4067Ckcn and Iron binding capacity panel - Serum or PlasmaIRON + TIBC Lab Routine Anemia, unspecified type Expected: 01/30/2022, Expires: 01/30/2023 [facility] Work Phone: Comment on above:Expected: 01/30/2022, Expires: 01/30/2023Start: 93-51-5409Bthzmuzsf vaccinationMansfield Hospitaltart: 12-29-2021 End: 56-28-2231Wuavtqe encounter /01/2022 [facility]ologyMerSt[facility] Maternal MedStart: 39-52-1415TKKMIZUAKO ASSESSMENTDEPRESSION ASSESSMENTMansfield Hospitaltart: 07-80-9332Kgsrc depression screening assessmentDEPRESSION SCREENINGMansfield Hospitaltart: 12-04-2020 Screening for malignant neoplasm of cervixCervical Cancer ScreeningMansfield Hospitaltart: 88-95-8556Iwwkqrqx screenDiabetes screenCENTRA L[facility] Start: 20-79-5003XVC TESTINGHPV TESTINGMansfield Hospitaltart: 10-22-2015 Screening for malignant neoplasm of cervixCENTRA LYNCHBURG [facility]ITALStart: 16-38-2481NZU Vaccine (1 - 3-dose SCDM series)HPV Vaccine (1 - 3-dose SCDM series)[facility]: 79-15-6389LGR Vaccines (1 - 3-dose SCDM series)HPV Vaccines (1 - 3-dose SCDM series)[facility]: 03-66-4201Zhgbctwfb for malignant neoplasm of cervixPap smearCENTRA LYNCHBURG [facility]ITALStart: 2004 DTaP,Tdap and Td Vaccines (1 - Tdap)DTaP,Tdap and Td Vaccines (1 - Tdap) [facility] SystemStart: 34-56-1101Kzxvnvdnv B Vaccine (1 of 3 - 19+ 3-dose series)Hepatitis B Vaccine (1 of 3 - 19+ 3-dose series)[facility]: 07-87-8276Usbnjmegw B Vaccines (1 of 3 - 19+ 3-dose series)Hepatitis B Vaccines (1 of 3 - 19+ 3-dose series)[facility] HealthcareStart: 14-99-4193Clyzg BMI Follow Up PlanAdult BMI Follow Up PlanFormerly [facility] Centertart: 95-69-7108Wpbzt BMI ScreeningAdult BMI ScreeningFormerly [facility] Centertart: 91-93-5617Doxlbox ScreeningAnxiety ScreeningMansfield Hospitaltart: 70-94-7103Ofhaoakuqj Screening Depression ScreeningMansfield Hospitaltart: 79-68-2043SEKQMFGBO C SCREENING HEPATITIS C SCREENINGMansfield Hospitaltart: 96-77-5563Jhhlbbwkf C screeningBON St. [facility]'s Hospitalart: 26-49-1538AEH SCREENINGHIV SCREENINGTrihealth Start: 12-89-4735WFB screeningHIV ScreeningMansfield Hospitaltart: 1998 History of varicella vaccinationVaricella Vaccines (1 of 2 - 13+ 2-dose series) [facility]Start: 88-20-2183Lqtgaetomy ScreenDepression ScreenVCU Health Community Memorial Hospital: 89-64-2251Truphkyrsj ScreeningDepression ScreeningFormerly [facility] Centertart: 35-66-7626Jffgboc ScreeningTobacco ScreeningFormerly [facility] Centertart: 35-75-8220LOuJ/Tdap/Td Vaccines (1 - Tdap)DTaP/Tdap/Td Vaccines (1 - Tdap)[facility]Start: 41-85-4460PDEMX-19 VACCINE (#1)COVID-19 VACCINE (#1)[facility]: 16-97-9421QGPUT-19 VACCINE (1)COVID-19 VACCINE (1) [facility]: 40-79-9324OEY Vaccines (1 of 1 - Standard series)MMR Vaccines (1 of 1 - Standard series)[facility]Start: 40-83-2944Lkcgnjoiz vaccine (1 of 2 - 2-dose childhood series)Varicella vaccine (1 of 2 - 2-dose childhood series)[facility]: 78-31-5176ONGFM-19 Vaccine (#1) COVID-19 Vaccine (#1)[facility]: 71-13-9493KNMVRLGMY B (1 of 3 - 3-dose series)HEPATITIS B (1 of 3 - 3-dose series)[facility]: 67-73-6844Wpwvsjbgh B Vaccine (1 of 3 - 3-dose series)Hepatitis B Vaccine (1 of 3 - 3-dose series)[facility] End: 13-83-0175Lzgfi Fetoprotein, MaternalB[facility] Work Phone: comment on above:Once for 1 Occurrences starting 11/21/2021 until 11/21/2021 End: 98-52-9632Vdlquiswpxd Ab, HEp-2 Substrate, S (NASEEM by IFA)Antinuclear Ab, HEp-2 Substrate, S (NASEEM by IFA) Lab Routine Antiphospholipid syndrome Antiphospholipid syndrome complicating , antepartum History of CVA (cerebrovascular accident) 1 Occurrences starting 02/16/2025 until 02/16/2026 [facility] Work Phone: comment on above:1 Occurrences starting 02/16/2025 until 6Bacteria identified in Urine by CultureUrine culture Microbiology Routine Missed menses Ordered: 04/04/2024[facility] HealthcareComment on above:Ordered: 04/04/2024acteria identified in Urine by CultureUrine culture Microbiology Routine Missed menses Ordered: 10/02/2024[facility] HealthcareComment on above:Ordered: 10/02/2024 End: 57-93-8621QWO W Auto Differential panel - BloodCBC + DIFF Lab Routine Primary hypercoagulable state (HCC) CVA, old, 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) Every 2 months for 6 Occurrences starting 01/30/2022 until 01/30/2023[facility] Work Phone: Comment on above:Every 2 months for 6 Occurrences starting 01/30/2022 until 01/30/2023BC W Auto Differential panel - BloodCBC and differential Lab Routine Missed menses , unspecified gestational age Ordered: 04/04/2024[facility] HealthcareComment on above:Ordered: 4CBC W Auto Differential panel - BloodCBC and differential Lab Routine Missed menses , unspecified gestational age [facility]: 10/02/2024[facility] HealthcareComment on above:Ordered: 5CBC W Auto Differential panel - BloodCBC and differential Lab Routine 28 weeks gestation of ([facility]) Ordered: 02/09/2025[facility] Work Phone: comment on above:Ordered: 5CHLAMYDIA TRACHOMATIS (GENITO/STI)CHLAMYDIA TRACHOMATIS (GENITO/STI) Lab Routine Vaginal bleeding Vaginal discharge Ordered: 06/23/2024[facility] HealthcareComment on above: Ordered: 5CHLAMYDIA TRACHOMATIS (GENITO/STI)CHLAMYDIA TRACHOMATIS (GENITO/STI) Lab Routine Vaginal discharge Ordered: 11/20/2024[facility] Comment on above:Ordered: 11/20/2024 End: 80-74-7923Eiddtwnttz profile (C3 AND C4)Complement profile (C3 AND C4) Lab Routine Antiphospholipid syndrome Antiphospholipid syndrome complicating , antepartum History of CVA (cerebrovascular accident) 1 Occurrences starting 02/16/2025 until 02/16/[address]:1 Occurrences starting 02/16/2025 until 02/16/2026 End: 94-38-3338Dtcjnyapangii metabolic 2000 panel - Serum or PlasmaCOMP METABOLIC PANEL Lab Routine Primary hypercoagulable state (HCC) CVA, old, 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) Every 2 months for 6 Occurrences starting 01/30/2022 until 01/30/2023[facility] Work Phone: Comment on above:Every 2 months for 6 Occurrences starting 01/30/2022 until 01/30/2023 End: 83-64-5352EYT double-stranded (dsDNA) Abs by Crithidia luciliae IFADNA double-stranded (dsDNA) Abs by Crithidia luciliae IFA Lab Routine Antiphospholipid syndrome Antiphospholipid syndrome complicating , antepartum History of CVA (cerebrovascular accident) 1 Occurrences starting 02/16/2025 until 02/16/2026[facility] Occurrences starting 02/16/2025 until 02/16/2026 End: 06-13-7240NPG PanelENA Panel Lab Routine Antiphospholipid syndrome Antiphospholipid syndrome complicating , antepartum History of CVA (cerebrovascular accident) 1 Occurrences starting 02/16/2025 until 02/16/2026 [facility] Occurrences starting 02/16/2025 until 02/16/2026Hemoglobin A1c/Hemoglobin.total in BloodHemoglobin A1c Lab Routine Missed menses , unspecified gestational age Ordered: 04/04/2024[facility] HealthcareComment on above:Ordered: 04/04/2024Hemoglobin A1c/Hemoglobin.total in BloodHemoglobin A1c Lab Routine Missed menses , unspecified gestational age Ordered: 10/02/2024[facility] HealthcareComment on above:Ordered: 10/02/2024Hepatitis B virus surface Ag [Presence] in Serum or Plasma by ImmunoassayHepatitis B surface antigen Lab Routine Missed menses , unspecified gestational age Ordered: 04/04/2024[facility] HealthcareComment on above: Ordered: 04/04/2024Hepatitis B virus surface Ag [Presence] in Serum or Plasma by ImmunoassayHepatitis B surface antigen Lab Routine Missed menses , unspecified gestational age Ordered: 10/02/2024[facility] HealthcareComment on above: Ordered: 10/02/2024Hepatitis C virus Ab [Presence] in Serum or Plasma by ImmunoassayHepatitis C antibody Lab Routine Missed menses , unspecified gestational age Ordered: 04/04/2024[facility] HealthcareComment on above:Ordered: 04/04/2024Hepatitis C virus Ab [Presence] in Serum or Plasma by Immunoassay Hepatitis C antibody Lab Routine Missed menses , unspecified gestational age Ordered: 10/02/2024[facility] HealthcareComment on above:Ordered: 10/02/2024HIV-1/HIV-2 antigen/antibody combination immunoassayHIV-1 and HIV-2 antibodies Lab Routine Missed menses , unspecified gestational age Ordered: 04/04/2024[facility] HealthcareComment on above:Ordered: 04/04/2024 HIV-1/HIV-2 antigen/antibody combination immunoassayHIV-1 and HIV-2 antibodies Lab Routine Missed menses , unspecified gestational age Ordered: 10/02/2024[facility] HealthcareComment on above:Ordered: 10/02/2024Neisseria gonorrhoeae DNA [Presence] in Unspecified specimen by LELO with probe detection Neisseria gonorrhea DNA probe, direct Lab Routine Vaginal bleeding Vaginal discharge Ordered: 06/23/2024[facility] HealthcareComment on above:Ordered: 06/23/2024 Neisseria gonorrhoeae DNA [Presence] in Unspecified specimen by LELO with probe detectionNeisseria gonorrhea DNA probe, direct Lab Routine Vaginal discharge Ordered: 11/20/2024[facility] HealthcareComment on above:Ordered: 11/20/2024Reagin Ab [Presence] in Serum by RPRRPR Lab Routine Missed menses , unspecified gestational age Ordered: 04/04/2024[facility] HealthcareComment on above:Ordered: 04/04/2024eagin Ab [Presence] in Serum by RPRRPR Lab Routine Missed menses , unspecified gestational age Ordered: 10/02/2024[facility] HealthcareComment on above:Ordered: 10/02/2024Rubella antibody, IgGRubella antibody, IgG Lab Routine Missed menses , unspecified gestational age Ordered: 04/04/2024 [facility] HealthcareComment on above:Ordered: 04/04/2024ubella antibody, IgGRubella antibody, IgG Lab Routine Missed menses , unspecified gestational age Ordered: 10/02/2024[facility] HealthcareComment on above:Ordered: 10/02/2024 SURESWAB(R) ADVANCED VAGINITIS PLUS, TMASURESWAB(R) ADVANCED VAGINITIS PLUS, TMA Pathology and Cytology Routine Vaginal bleeding Vaginal discharge Ordered: 06/23/2024[facility] Work Phone: comment on above:Ordered: 06/23/2024SURESWAB(R) ADVANCED VAGINITIS PLUS, TMASURESWAB(R) ADVANCED VAGINITIS PLUS, TMA Pathology and Cytology Routine Vaginal discharge Ordered: 11/20/2024[facility] Work Phone: comment on above:Ordered: 11/20/2024Thyrotropin [Units/volume] in Serum or PlasmaTSH Lab Routine Hypothyroidism (acquired) ([facility]) Ordered: 04/04/2024[facility] HealthcareComment on above:Ordered: 04/04/2024 Thyrotropin [Units/volume] in Serum or PlasmaTSH Lab Routine History of thyroid disease Ordered: 06/02/2024[facility] Work Phone: comiujz on above:Ordered: 06/02/2024Thyrotropin [Units/volume] in Serum or PlasmaTSH Lab Routine Thyroid disease ([facility]) Ordered: 10/02/2024[facility] above:Ordered: 10/02/2024 Thyrotropin [Units/volume] in Serum or PlasmaTSH Lab Routine Second trimester ([facility]) Thyroid disease Ordered: 12/11/2024[facility] Work Phone: comment on above:Ordered: 12/11/2024UA DIP, URINE (POC)UA DIP, URINE (POC) Lab Routine Infective urethritis Ordered: 08/01/2021 [facility] Work Phone: Comment on above:Ordered: 08/01/2021Vitamin D 1,25 dihydroxyVitamin D 1,25 dihydroxy Lab Routine Low vitamin D level Ordered: 04/04/2024[facility] HealthcareComment on above:Ordered: 04/04/2024 End: 04-78-3444Dcsijbb D 25 hydroxyVitamin D 25 hydroxy Lab Routine Insulin controlled gestational diabetes mellitus (GDM) in second trimester 1 Occurrences starting 12/03/2024 until 12/03/2025[facility] Work Phone: comment on above:1 Occurrences starting 12/03/2024 until 12/03/2025[facility] Immunizations Immunization DateImmunizationNotesCare OkqtmiwoEqqjdgwg19-15-2396ckjivcted virus vaccine, unspecified formulationKristofer Calix MD Work Phone: [facility]healthAmgnie90-61-9366mfehyzj toxoid, reduced diphtheria toxoid, and acellular pertussis vaccine, adsorbedMa Sand Work Phone: [facility]healthNEGATED: Highlighted row has not occurred!12-95-8235hzxsqnuxm virus vaccine, unspecified formulationSelissa CASAS [phone]-XeveiMarietta Osteopathic Clinic Primary CareNEGATED: Highlighted row has not occurred!87-44-0847foudmlvld virus vaccine, unspecified formulationPERNELL LONGORIA [phone]-YmqehMarietta Osteopathic Clinic [facility] [place] Payers DatePayer CategoryPayerPolicy [id number] 2021Medicaid [place] [employer] [id number] 2020-Present [phone] [address] [place] [address] [id number] 2021Medicaid [id number] 2.16.840.1.799717.3.579.[id number] 2.16.840.1.950749.3.57[id number] 2.16.840.1.775962.3.579.2.86608-47-7849Ctrkjhj5722836 2.16.840.1.421248.3.579.2.03331-35-9605Lfycmsf5661079 2.16.840.1.870214.3.579.2.62487-03-0362Oebwncc0462272 2.16.840.1.504110.3.579.2.23895-25-8018Lhepfyy8742430 2.16.840.1.289532.3.579.2.27869-45-7291Wvqdskh5953796 2.16.840.1.587826.3.579.2.32927-23-6823Rgjeemq5519619 2.16.840.1.321619.3.579.2.95002-96-4946Wzegovv8673694 2.16.840.1.227039.3.579.2.61560-21-1204Ybbppac9692695 2.16.840.1.885332.3.579.2.94978-65-7375Lbkeyuo0866251 2.16840.1.672365.3.579.2.39677-32-8280Xzfzqkv8649586 2.16840.1.351476.3.579.2.27237-68-7275Vrrdqxm3128370 2.16840.1.040043.3.579.2.16287-63-9896Qvadfbf3827927 2.16840.1.524176.3.579.2.71700-97-7192Gloztch1338601 2.840.1.778515.3.579.2.36219-54-0598Preaizz4235600 2.840.1.807682.3.579.2.20808-15-0469Rmyfahf5978292 2.0.1.397725.3.579.2.33181-08-6347Wsopccu7072919 2.840.1.433327.3.579.2.76798-88-8410Jrszjsq9189414 2.0.1.856649.3.579.2.11155-25-9451Cvcyeeg4633866 2.840.1.800488.3.579.2.14373-45-2916Zbyhrac6341192 2.840.1.538130.3.579.2.84732-97-3512Vokgykz5331828 2.16840.1.708550.3.579.2.90473-73-0614Tdahxcn8612591 2.840.1.180434.3.579.2.59198-94-9657Ebgnipw1092535 2.16840.1.360760.3.579.2.78889-04-8182Fljjcwx2222729 2.16840.1.719888.3.579.2.19582-77-7955Wbihegj9223508 2.16840.1.717210.3.579.2.36564-62-1254Pctsrij0042508 2.16840.1.435497.3.579.2.33665-42-9162Ycchfdp0326419 2.16840.1.017768.3.579.2.01524-44-8307Jfognxl59691170 2.16840.1.788121.3.579.2.20922-95-0380Ekbtgjf97042561 2.16840.1.376428.3.579.2.68684-10-0835Lkjqzna86931205 2.840.1.796538.3.579.2.84040-94-8881Arlmlsl64973238 2.840.1.301817.3.579.2.94339-87-8074Ngiwgmt39348486 2.840.1.940830.3.579.2.16353-53-1397Desnnfd72771265 2.16840.1.361547.3.579.2.79535-18-4301Yqphmag75053855 2.840.1.717957.3.579.2.18016-42-0785Wqfocqw61453476 2.840.1.575073.3.579.2.62838-62-9258Xdaxawy25972063 2.16840.1.966220.3.579.2.78210-24-9457Ghzdzav55982128 2.16840.1.133586.3.579.2.67238-05-7631Fwqsvvd80712613 2.16840.1.457851.3.579.2.20755-08-7669Cgeqqxz38503734 2.16840.1.873844.3.579.2.08577-11-7753Upiglrl45834750 2.160.1.778196.3.579.2.71789-65-4972Vybdhhu57346386 2.16840.1.778370.3.579.2.31923-71-4231Vhefcry16418242 2.840.1.218913.3.579.2.53740-87-2066Fkpkxcl76479250 2.0.1.502295.3.579.2.18167-04-3783Xqefylx65924613 2.0.1.631806.3.579.2.94734-86-6855Pllzxmv11082087 2.0.1.989623.3.579.2.78562-03-3288Vmdylss78519182 2.0.1.616123.3.579.2.39446-68-7262Nubxivi23380885 2..1.126650.3.579.2.93673-41-8124Kudxfmi98834771 2..1.127177.3.579.2.13761-05-1749Pxqzktn35822018 2.0.1.975697.3.579.2.01758-26-3585Haxjvnb79895340 2.0.1.795472.3.579.2.59346-79-3043Pkenamf53554035 2.0.1.361227.3.579.2.34191-11-9817Klitkpn04049973 2.840.1.205658.3.579.2.71818-09-1760Ezpmtvy63894623 2.16.840.1.144115.3.579.2.19932-58-8109Ocugvym08446060 2.16840.1.121771.3.579.2.13975-40-5573Bgvhnmf30900849 2.16840.1.976877.3.579.2.36022-27-0110Jhxwfqc87729312 2.16840.1.875530.3.579.2.90518-24-1456Kmuclce54927091 2.16840.1.494320.3.579.2.27520-49-9716Wrszyid58818765 2.0.1.358369.3.579.2.81801-81-2585Zkdscgt46843303 2.0.1.304858.3.579.2.80601-65-8349Mrvalxu80333632 2.0.1.549123.3.579.2.46664-71-1422Dczgrri31174268 2.0.1.182379.3.579.2.15951-57-1848Wqfqjzg23914072 2.840.1.016457.3.579.2.61231-94-6345Gbfugqw15294446 2.840.1.101179.3.579.2.72275-78-0158Cglclvg21565179 2.840.1.116382.3.579.2.76442-48-8774Bflghdm57351927 2.840.1.405824.3.579.2.67541-10-9056Scpxugl89641600 2.16840.1.664696.3.579.2.20261-33-2458Ewxmnwy59575190 2.840.1.217980.3.579.2.55995-85-3765Pstaxbl81717019 2.16840.1.495726.3.579.2.68922-74-6228Wcivhmv75152014 2.840.1.332440.3.579.2.91387-17-8839Isdjqzl16595440 2.840.1.652593.3.579.2.63890-45-2310Ztvuxeu39372057 2.840.1.147647.3.579.2.76701-60-3570Gclczcb224468459 2.0.1.151516.3.579.2.083380-69-4739Nrzhjjb024226497 2.840.1.200757.3.579.2.228810-85-5635Iitvjkt262827717 2.0.1.802501.3.579.2.632522-99-4910Kogzqvr43530630 2.0.1.641231.3.579.2.12754-85-5485Smvgpcd155611888 2.0.1.922345.3.579.2.102083-95-0540Yriwrhs834817490 2.0.1.437414.3.579.2.392360-66-1550Dthwrbp052365195 2.0.1.101567.3.579.2.316331-95-6163Kcskghm349828574 2.0.1.838387.3.579.2.268945-42-5829Cketzgo321023615 2.0.1.604299.3.579.2.836983-53-1015Eqsyjrx216929777 2.840.1.181718.3.579.2.542171-11-1560Nxevcet208328875 2.840.1.173048.3.579.2.984099-45-2507Zgxuteb65702200 2.16.840.1.663624.3.579.2.838939-76-6124Nhiywrt64739386 2.16.840.1.817341.3.579.2.415424-89-3031Wrgqhfx78802453 2.16840.1.587712.3.579.2.727677-54-1768Lybdbxu85204020 2.16840.1.999642.3.579.2.099838-25-2976Awzbqhj71496161 2.16840.1.520782.3.579.2.505103-38-2994Owideeb43032458 2.16840.1.100276.3.579.2.063082-37-0287Gktteqv49999689 2.16840.1.942066.3.579.2.467223-08-2141Cbcwdlh94176616 2.160.1.482714.3.579.2.005565-66-7156Lmlauyn35171950 2.16840.1.463920.3.579.2.702553-55-5144Mkawokr2048492 2.16840.1.468397.3.579.2.136916-14-8401Nacxmmm7729870 2.16840.1.961504.3.579.2.323141-87-0748Zldjbed2226943 2.16840.1.639952.3.579.2.600360-35-3488Osqapfr9079347 2.16840.1.068101.3.579.2.196544-19-8073Qqwwkcp8033578 2.16840.1.533290.3.579.2.357800-81-1608Wxzoxwa8956556 2.16.840.1.509736.3.579.2.124948-39-0918Nvwa-thy76-62-5547YjoyijaO2402476304 70-10-0025Uzqwgna28394140247 1.2.840.282233.1.13.239.2.7.3.001579.315Unknown 9556323 2.16.840.1.682838.3.579.2.593 Social History DateTypeDetailFacilityStart: 09-10-2017 End: 36-68-8132Zmziodq smoking status NHISNever smoked tobaccoTrihealth Start: 09-10-2017 End: 43-39-3013Mysvxas use and exposureSmokeless tobacco non-userMansfield Hospitaltart: 08-01-2021 End: 52-43-5330Eajvzfn intakeCurrent non-drinker of alcohol (finding)[facility]: 39-87-7289Suw Assigned At BirthNot on fileMansfield Hospitaltart: 07-22-2021 End: 76-27-6127Sgacmifh to SARS-CoV-2 (event)Not sureMansfield Hospitaltart: 05-28-2017 End: 42-10-0166Lkgcrtj smoking statusNeverDetwiler Memorial Hospital Start: 07-27-2022 End: 03-50-0083Bry Assigned At BirthF[facility]alCorey Hospital Start: 11-21-2021 End: 80-98-1956Nhgudvg intakeEx-drinker (finding)[employer] Work Phone: start: 70-82-4396Orhlyzw SDOH Alcohol Comment occasionallyB[facility] Work Phone: start: 86-78-8579UjyfreaxNXP [employer] Phone: start: 07-27-2022 End: 36-30-4703Dbliglo of Social functionMansfield Hospitaltart: 04-04-2024 End: 02-75-3824Dtaebyfwk beverage intakeLifetime non-drinker (finding)[facility] smoking status NHISUnknown if ever smokedSelect Medical [facility] Work Phone: Start: 11-27-2018 End: 21-10-6537PlnGmxusm (finding)[facility]stowntart: 59-26-6180Rhr Assigned At [facility] Hospitalexual OrientationKettering Health Medical Equipment Procedure CodeEquipment CodeEquipment Original TextEquipment IdentifierDates [id number]: 10-30-2024 End: each by In Vitro route Daily Use to check FSBS four times daily [id number]: 10-30-2024 End: 44-32-3246Snv a new needle with each injection ( 1- 5 times per day) [id number]: 12-03-2024 Functional Status MmlnMpovbrpzevVjqullLlsbayay46-21-7725Gfpjijz Health Questionnaire 2 item (PHQ- 2) [Reported][facility] WestHfoyuzdezk79-08-4871Zeygebxgxc StatusN/[facility] Primary Nwgq94-51-6775Eigqkcsqri StatusN/[facility] Family Medicine Azxhw68-36-0824Fuxhlmltat StatusN/[facility] Primary Mlmq50-60-8395Bvwudoxhip StatusN/[facility] Primary Cdxd40-94-9557Ypeuqlwucg StatusN/[facility] 59-89-8926Cexmzwgmqo StatusN/[facility] Primary Ywal58-26-9804 Functional StatusN/[facility] Primary Jgmw70-88-1883Bhwexdhcza StatusNPro[facility] Convenient Aebr51-57-3779Jsxonascuy Status N/[facility] Primary Wjae63-62-4151Gejyrkcjcg StatusN/[facility] Primary Ckgm65-58-9034Kjgxortazz StatusN/[facility] Primary Rnqj39-24-8614Fndylccfne StatusN/[facility] Primary Care Clinical Notes 07-26-2019 to 03-02-2025 Note Date & GebvQjvfBllkyqnp52-37-0820 NoteHNO ID: [id number] Author: KATHERINE NEGRETE APRN.MACHINE BOBBIN WINDER Service: ? Author Type: Nurse Practitioner Type: Progress Notes Filed: 03/02/2025 20:18 Note Text: NAME: Sanna Rendon CLINIC NO.: [id number] DATE OF SERVICE: March 02, 2025 (Penelope) Some elements in this clinic note that are critical to medical decision making have been carefully reviewed and included from a prior clinic note dated: December 23, 2024 (Penelope) Additional Clinicians involved in Sanna Rendon's care: Drs. Herrmann, Jorge Monge, Humaira Gaviria, Dr. Boothe CC: Hypercoag state CASE SUMMARY / ASSESSMENT: 39 year old woman presents with a prior history of CVA in 2016 and an antiphospholipid antibody that was identified much later in 2018. These were found in [place], [place]. I don't have access to these [...] a target-like rash shortly before presenting to [facility] in 2016 with headaches and [...] SUMMARIZED PLAN OF CARE: Continue Lovenox Saw TOOL FILER HAND and patient increased Lovenox to 40 mg twice daily after additional recommendation Continue B12 RTC in 4 weeks Labs same day to include iron studies ___ HPI: Updated Visit, March 02, 2025: The patient is a 39-year-old female with a history of anemia, hemorrhage, and gestational diabetes, presenting for follow-up during . The patient has [...] leading to its discontinuation. She has a h (more content not included)...[facility]10-27-2025 History of Present illness Narrative* Rosi Murray, DEB - 02/23/2025 9:00 AM EDT Reason [...] Diagnosis Date Noted 32 weeks gestation of ([facility]) 11/28/2019 Abdominal pain 06/12/2023 Acute bronchitis due to infection 06/12/2023 Acute on chronic vesicular eczema of hands and feet 11/15/2023 Anemia complicating childbirth ([facility]) 01/16/2020 Anticoagulant long-term use 02/22/2020 Antiphospholipid antibody positive 09/10/2017 Antiphospholipid antibody syndrome ([facility]) 07/07/2019 Anxiety 06/12/2023 Blood pressure elevated without history of HTN 11/15/2023 BMI 37.0-37.9, adult 11/15/2023 Cerebral infarction, unspecified ([facility]) 05/16/2019 Cerebrovascular accident (CVA) due to stenosis of middle cerebral artery ([facility]) 02/22/2020 Cervicalgia 02/05/2019 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 ([facility]) 01/08/2020 Coagulation defect, unspecified ([facility]) 02/05/2019 Cold intolerance 11/15/2023 Deficiency of other specified B group vitamins 05/16/2019 Deviated septum 11/15/2023 Dizziness and giddiness 02/05/2019 Dry mouth 11/15/2023 Dysfunction of eustachian tube 06/12/2023 Dyspnea 06/12/2023 Elevated blood pressure reading 11/15/2023 Encounter for supervision of normal , unspecified, first trimester ([facility]) 05/29/2019 Environmental allergies 11/15/2023 Fatigue 12/29/2016 First degree perineal laceration during delivery ([facility]) 01/16/2020 Frequency of micturition 02/19/2019 Genitourinary symptoms 08/19/2021 Gestational diabetes mellitus (GDM), antepartum ([facility]) 01/26/2022 H/O: hypothyroidism 11/15/2023 Hematochezia 06/12/2023 History [...] anemia 01/16/2020 Irregular uterine bleeding 11/15/2023 problem ([facility]) 06/12/2023 Less than 8 weeks gestation of ([facility]) 06/05/2019 assisted (current) use of 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/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 02/05/2019 Migraine without aura and without status migrainosus, not intractable 09/12/2017 Morbid obesity ([facility] [place]) 11/15/2023 Muscle fasciculation 08/19/2021 Nasal polyps 11/15/2023 Non-smoker 11/15/2023 NEETA (obstructive sleep apnea) 11/15/2023 Other acute postprocedural pain 02/03/2019 Other general symptoms and signs 10/28/2019 Other immediate hemorrhage ([facility]) 01/16/2020 Other specified noninflammatory disorders of vagina 02/21/2019 Pain in joint 12/29/2016 Palpitations 08/26/2019 Paresthesia of bilateral legs 11/15/2023 Pelvic and perineal pain 02/01/2019 Personal history of urinary (tract) infections 01/16/2020 Pre-diabetes 11/15/2023 Primary hypercoagulable state ([facility]) 08/01/2022 Pruritus, unspecified 01/02/2020 Psychogenic hyperventilation 06/12/2023 Raised antibody titer 09/25/2017 Right lower quadrant pain 11/15/2023 Right otitis externa 11/15/2023 Salivary gland swelling 11/15/2023 Single live ([facility]) 01/15/2020 Snoring 11/15/2023 Speech and language deficit [...] drainage of cyst WISDOM TOOTH EXTRACTION 2007 [place] teeth REVIEW OF SYSTEMS Review of Systems: [...] nursing note reviewed. Exam conducted with a investigative reporter present. Vitals: Estimated body mass index is 33.98 kg/m as calculated from the following: Height as of 11/19/23: 5' 6 . Weight as of this encounter: 210 lb 8 oz. BP: 116/72 Patient's last menstrual period was 07/28/2024. Assessment/Plan ICD-10-CM 1. Third trimester ([facility]) Z34.93 2. 30 weeks gestation of ([facility]) Z3A.30 POCT urinalysis dipstick manually resulted Patient [...] Wilton Herrmann DO documented in this encounterSaint [facility] [id number] History of Present illness Narrative* Sam Callahan MD MPH - 02/16/2025 1:45 PM EDT Images from the original note were not included. ADULT RHEUMATOLOGY CLINIC NOTE [id number] [id number] Patient Name: Sanna Rendon Subjective Reason for [...] following with two outside specialists (Neurology at [facility] and Hematology at [facility]) for management of her APS. The patient [...] health issues unclear exact diagnoses Note from [facility] Provider (Dr. Noyola): Recent note from [...] age) multigravida 35+ Antiphospholipid syndrome Hypothyroid Stroke ([facility] [place] [place]) Gestational diabetes mellitus (GDM) in second trimester [...] Anemia Antiphospholipid antibody syndrome Cerebral infarction, unspecified ([facility]) 05/16/2019 Hypothyroid Migraine without aura and without status migrainosus, not intractable 09/12/2017 Stroke ([facility] [place] [place]) 2016 reviewed. Social History Social History Narrative [...] weeks . She is currently following with [facility] for her , neurology through the [employer] system, and hematology through [facility]. Based on extensive review of her outside [...] visit is OK Sam Callahan MD, MPH [facility] [address] [place] [address] Total [id number] time was 55 minutes with more than [...] you for your understanding. [facility] Miscellaneous Notes* Telephone Encounter - [...] in blood sugars weekly. [facility] Telephone encounter Note* Telephone Encounter - PRISCILLA [...] Continue to send in blood sugars weekly. [employer] Work Phone: [phone] 152-413710-13-2025 History of Present illness Narrative* Rosi Murray [...] to check FSBS. Blood Glucose Monitoring Suppl (D-Brandpotion Glucometer) w/Device kit 1 kit, Does not [...] Diagnosis Date Noted 32 weeks gestation of ([facility]) 11/28/2019 Abdominal pain 06/12/2023 Acute bronchitis due to infection 06/12/2023 Acute on chronic vesicular eczema of hands and feet 11/15/2023 Anemia complicating childbirth ([facility]) 01/16/2020 Anticoagulant long-term use 02/22/2020 Antiphospholipid antibody positive 09/10/2017 Antiphospholipid antibody syndrome ([facility]) 07/07/2019 Anxiety 06/12/2023 Blood pressure elevated without history of HTN 11/15/2023 BMI 37.0-37.9, adult 11/15/2023 Cerebral infarction, unspecified ([facility]) 05/16/2019 Cerebrovascular accident (CVA) due to stenosis of middle cerebral artery (HCC) 02/22/2020 Cervicalgia 02/05/2019 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 ([facility]) 01/08/2020 Coagulation defect, unspecified ([facility]) 02/05/2019 Cold intolerance 11/15/2023 Deficiency of other specified B group vitamins 05/16/2019 Deviated septum 11/15/2023 Dizziness and giddiness 02/05/2019 Dry mouth 11/15/2023 Dysfunction of eustachian tube 06/12/2023 Dyspnea 06/12/2023 Elevated blood pressure reading 11/15/2023 Encounter for supervision of normal , unspecified, first trimester ([facility]) 05/29/2019 Environmental allergies 11/15/2023 Fatigue 12/29/2016 First degree perineal laceration during delivery ([facility]) 01/16/2020 Frequency of micturition 02/19/2019 Genitourinary symptoms 08/19/2021 Gestational diabetes mellitus (GDM), antepartum ([facility]) 01/26/2022 H/O: hypothyroidism 11/15/2023 Hematochezia 06/12/2023 History [...] anemia 01/16/2020 Irregular uterine bleeding 11/15/2023 problem ([facility]) 06/12/2023 Less than 8 weeks gestation of ([facility]) 06/05/2019 assisted (current) use of 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/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 02/05/2019 Migraine without aura and without status migrainosus, not intractable 09/12/2017 Morbid obesity ([facility] [place] [place]) 11/15/2023 Muscle fasciculation 08/19/2021 Nasal polyps 11/15/2023 Non-smoker 11/15/2023 NEETA (obstructive sleep apnea) 11/15/2023 Other acute postprocedural pain 02/03/2019 Other general symptoms and signs 10/28/2019 Other immediate hemorrhage ([facility]) 01/16/2020 Other specified noninflammatory disorders of vagina 02/21/2019 Pain in joint 12/29/2016 Palpitations 08/26/2019 Paresthesia of bilateral legs 11/15/2023 Pelvic and perineal pain 02/01/2019 Personal history of urinary (tract) infections 01/16/2020 Pre-diabetes 11/15/2023 Primary hypercoagulable state ([facility]) 08/01/2022 Pruritus, unspecified 01/02/2020 Psychogenic hyperventilation 06/12/2023 Raised antibody titer 09/25/2017 Right lower quadrant pain 11/15/2023 Right otitis externa 11/15/2023 Salivary gland swelling 11/15/2023 Single live ([facility]) 01/15/2020 Snoring 11/15/2023 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) 12/30/2019 Suspected severe acute respiratory syndrome coronavirus 2 (SARS-CoV-2) infection 06/12/2023 SVT (supraventricular tachycardia) ([facility]) 08/26/2019 Syncope and collapse 06/03/2018 Other bacterial infections of unspecified site 06/27/2019 Thrombocytopenia, unspecified 11/20/2019 Hypoglycemia 06/12/2023 Unspecified condition associated with female genital organs and menstrual cycle 05/09/2019 Unspecified ovarian cyst, right side 02/06/2019 Urinary tract infection 10/16/2019 Referred otalgia of right ear 11/19/2023 LPRD (laryngopharyngeal reflux disease) 11/19/2023 H/O loss 01/05/2025 Multigravida of advanced maternal age in second trimester ([facility]) 01/05/2025 Thyroid disease 01/05/2025 Resolved Ambulatory Problems Diagnosis Date Noted No Resolved Ambulatory Problems Past Medical History: Diagnosis Date AMA (advanced maternal age) multigravida 35+ ([facility]) Anemia Antiphospholipid syndrome ([facility]) Gestational diabetes ([facility]) Heartburn Hypothyroid Stroke (HCC) HISTORY PAST MEDICAL HISTORY SOCIAL HISTORY Past Medical History: Diagnosis Date AMA (advanced maternal age) multigravida 35+ ([facility]) Anemia Antiphospholipid syndrome ([facility]) Gestational diabetes ([facility]) Heartburn Hypothyroid Stroke (HCC) Social History Tobacco [...] drainage of cyst WISDOM TOOTH EXTRACTION 2007 [place] teeth REVIEW OF SYSTEMS Review of Systems: [...] nursing note reviewed. Exam conducted with a investigative reporter present. Vitals: Estimated body mass index is 34.12 kg/m as calculated from the following: Height as of 11/19/23: 5' 6 . Weight as of this encounter: 211 lb 6.4 oz. BP: 124/76 Patient's last menstrual period was 07/28/2024. ASSESSMENT & PLAN ICD-10-CM 1. Third trimester ([facility]) Z34.93 2. 28 weeks gestation of ([facility]) Z3A.28 CBC and differential POCT urinalysis [...] givenorders and they were also faxed to [facility] and [facility] Scheduling. Patient to return to clinic in 2 weeks for routine OB appointment. Documented by Rosi Murray LPN on behalf of: Wilton Herrmann DO documented in this encounterSaint Joseph Hospital [id number] History of Present illness Narrative* Mukul Noyola MD - 02/06/2025 2:00 PM EDT Images from the original note were not included. Video Visit via Real-time Synchronous Audiovisual Provider Location: [facility] AT [address] [phone] Patient Location: Other Home Patient Location Buyer Liaison: None Video Visit Consent Statement: I discussed [...] that there are some limitations compared to [id number] evaluations. We elected to proceed. [facility] Maternal- Medicine Office Note Reason For Office [...] will be undergoing genetic testing through the cupola operator. There is family history of hypospadias and [...] Anes PTL Lv 8 Current 7 SAB 0107/25 14w0d FD 6 Term 05/08/22 39w0d F [...] Anemia Antiphospholipid antibody syndrome Cerebral infarction, unspecified ([facility] [place] [place]) 05/16/2019 Hypothyroid Migraine without aura and without status migrainosus, not intractable 09/12/2017 Stroke ([facility] [place] [place]) 2015 PSHIST: Past Surgical History: Procedure Laterality [...] to continue to send blood glucoses to [facility] to review - continue Lovenox 40 [...] Mukul Noyola MD, FACOG (she/hers) Maternal- Medicine [address] [place] [address] This document was created with WaysGo technology. Though I make every effort to review the dictation as it is transcribed, on occasion the spoken word can be misinterpreted by the technology leading to inappropriate words, phrases, or sentences. This note is addressed to the requesting provider as a consultation for clinical guidance. Specificmedical abbreviations are occasionally used and those are generally approved by the [place]?Board of?Obstetrics and?Gynecology?as well as?Elizabeth guzman abbreviations. The above plan of care was based solely on the diagnoses for which a consultation was requested. ?More frequent testing may be indicated based on her other medical/obstetrical conditions. The management of other or medical conditions is beyond the scope of requested consultation and will c taniaue to be followed by the primary curb setter helper or primary care provider. Note to patient: The 21st Century Cures Act makes medical notes like [...] opinion of the practitioner. documented in this encounterKettering Health Behavioral Medical CenterTranscast Media [facility] [id number] NoteEchocardiology Procedure Exam Date/Time Accession # Ordering Echo Transthoracic 02/03/2025 10:00 EDT [id number] Wilton HERRMANN DO Complete CPT code 91119 08435 Reason for Exam (Echo Transthoracic Complete) Dizziness and giddiness E07.9, O09.522 [address] [address] Adult Echocardiogram Report Name: SANNA RENDON Study [...] Physician: Wilton HERRMANN Performed By: Marry Peng [facility] Interpretation Summary There is Trace mitral [...] by: Merrick Watkins MD Transcribed by: [facility] Technologist: [facility]09-22-2025 History of Present illness Narrative* Celia Keith, [...] Diagnosis Date Noted 32 weeks gestation of ([facility]) 11/28/2019 Abdominal pain 06/12/2023 Acute bronchitis due to infection 06/12/2023 Acute on chronic vesicular eczema of hands and feet 11/15/2023 Anemia complicating childbirth ([facility]) 01/16/2020 Anticoagulant long-term use 02/22/2020 Antiphospholipid antibody positive 09/10/2017 Antiphospholipid antibody syndrome ([facility]) 07/07/2019 Anxiety 06/12/2023 Blood pressure elevated without history of HTN 11/15/2023 BMI 37.0-37.9, adult 11/15/2023 Cerebral infarction, unspecified ([facility]) 05/16/2019 Cerebrovascular accident (CVA) due to stenosis of middle cerebral artery ([facility]) 02/22/2020 Cervicalgia 02/05/2019 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 ([facility]) 01/08/2020 Coagulation defect, unspecified ([facility]) 02/05/2019 Cold intolerance 11/15/2023 Deficiency of other specified B group vitamins 05/16/2019 Deviated septum 11/15/2023 Dizziness and giddiness 02/05/2019 Dry mouth 11/15/2023 Dysfunction of eustachian tube 06/12/2023 Dyspnea 06/12/2023 Elevated blood pressure reading 11/15/2023 Encounter for supervision of normal , unspecified, first trimester ([facility]) 05/29/2019 Environmental allergies 11/15/2023 Fatigue 12/29/2016 First degree perineal laceration during delivery ([facility]) 01/16/2020 Frequency of micturition 02/19/2019 Genitourinary symptoms 08/19/2021 Gestational diabetes mellitus (GDM), antepartum ([facility]) 01/26/2022 H/O: hypothyroidism 11/15/2023 Hematochezia 06/12/2023 History [...] anemia 01/16/2020 Irregular uterine bleeding 11/15/2023 problem ([facility]) 06/12/2023 Less than 8 weeks gestation of ([facility]) 06/05/2019 assisted (current) use of 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/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 02/05/2019 Migraine without aura and without status migrainosus, not intractable 09/12/2017 Morbid obesity ([facility] [place] [place]) 11/15/2023 Muscle fasciculation 08/19/2021 Nasal polyps 11/15/2023 Non-smoker 11/15/2023 NEETA (obstructive sleep apnea) 11/15/2023 Other acute postprocedural pain 02/03/2019 Other general symptoms and signs 10/28/2019 Other immediate hemorrhage ([facility]) 01/16/2020 Other specified noninflammatory disorders of vagina 02/21/2019 Pain in joint 12/29/2016 Palpitations 08/26/2019 Paresthesia of bilateral legs 11/15/2023 Pelvic and perineal pain 02/01/2019 Personal history of urinary (tract) infections 01/16/2020 Pre-diabetes 11/15/2023 Primary hypercoagulable state ([facility]) 08/01/2022 Pruritus, unspecified 01/02/2020 Psychogenic hyperventilation 06/12/2023 Raised antibody titer 09/25/2017 Right lower quadrant pain 11/15/2023 Right otitis externa 11/15/2023 Salivary gland swelling 11/15/2023 Single live ([facility]) 01/15/2020 Snoring 11/15/2023 Speech and language deficit [...] drainage of cyst WISDOM TOOTH EXTRACTION 2007 [place] teeth REVIEW OF SYSTEMS Review of Systems: [...] nursing note reviewed. Exam conducted with a investigative reporter present. Vitals: Estimated body mass index is 34.14 kg/m as calculated from the following: Height as of 11/19/23: 5' 6 . Weight as of this encounter: 211 lb 8 oz. BP: 124/70 Patient's last menstrual period was 07/28/2024. ASSESSMENT & PLAN ICD-10-CM 1. Second trimester ([facility]) Z34.92 POCT urinalysis dipstick manually resulted 2. 25 weeks gestation of ([facility]) Z3A.25 3. Gestational diabetes mellitus (GDM), antepartum, gestational diabetes method of control unspecified ([facility]) O24.419 metFORMIN XR (Glucophage-XR) 500 MG 24 [...] Wilton Herrmann DO documented in this encounterSaint Joseph Hospital [id number] History of Present illness Narrative* Roxana Mays PA-C - 01/13/2025 10:00 AM EDT Maternal- Medicine Consultation VIDEO Patient is present at home , provider present at [facility] HISTORY OF PRESENT ILLNESS: Sanna Rendon [...] more likely to fail compared to insulin. assisted data on children whose mothers took oral [...] in regards to medication - See previous MFTai ROSARIO notes - MFM and hematology recommend [...] so she can have them done at [place] - Anatomy survey with M -followsup scheduled 02/05 - growth ultrasounds every [...] by e-mail to: or by fax to: [phone] Roxana Mays PA-C Maternal- Medicine Office phone: [phone] Roxana Mays PA-C 01/13/25 1031 documented in this encounterSouth[facility] Center09-16-2025 Miscellaneous Notes* Medical Student - [...] the legal medical record. documented in this encounterSouthview Medical Center09-16-2025 Progress note* Medical Student - [...] a part of the legal medical record. [facility] Miscellaneous Notes* Telephone Encounter - [...] answered. MUKUL NOYOLA MD documented in this encounterSouthview Medical Center09-12-2025 Telephone encounter Note* Telephone Encounter [...] questions and concerns answered. MUKUL NOYOLA MD [facility]09-10-2025 Miscellaneous Notes* Telephone Encounter - Jacque Pat RN - 01/07/2025 10:29 AM EDT Window Shade Ring Coverer called and spoke to patient yesterday to discuss a several topics. Window Shade Ring Coverer asked if patient wanted another follow up cervical length. Patient declined. We also discussed her insulin dosage. Patient had not started her NPH insulin yet because her pharmacy did not notify her it was ready for pickup. She asked if she could start at 4 units instead of 8. She is worried because she had a bad reaction when she took Lantus previously. Window Shade Ring Coverer discussed this with Dr. Noyola and she is okay with her starting at a lower dose for now. Lastly, information writer notified patient that Dr. Noyola wanted to discuss with her overnight stocker her Lovenox dosing. Patient stated there was some confusion if she should be on 40mg or 80mg, patient prefers to be on the lower dose. Patient is seeing a Dr. aClix from the [facility] hematology office in [place]. Notified patient that we will reach out to her overnight stocker to discuss her dosing. documented in this encounterKettering Health Behavioral Medical CenterCore Stix09-10-2025 Telephone encounter Note* Telephone Encounter - Jacque Pat RN - 01/07/2025 10:29 AM EDT Window Shade Ring Coverer called and spoke to patient yesterday to discuss a several topics. Window Shade Ring Coverer asked if patient wanted another follow up cervical length. Patient declined. We also discussed her insulin dosage. Patient had not started her NPH insulin yet because her pharmacy did not notify her it was ready for pickup. She asked if she could start at 4 units instead of 8. She is worried because she had a bad reaction when she took Lantus previously. Window Shade Ring Coverer discussed this with Dr. Noyola and she is okay with her starting at a lower dose for now. Lastly, information writer notified patient that Dr. Noyola wanted to discuss with her overnight stocker her Lovenox dosing. Patient stated there was some confusion if she should be on 40mg or 80mg, patient prefers to be on the lower dose. Patient is seeing a Dr. Calix from the [facility] hematology office in [place]. Notified patient that we will reach out to her overnight stocker to discuss her dosing. [facility] Well.[id number] History of Present illness Narrative* Rosi Murray [...] to check FSBS. Blood Glucose Monitoring Suppl (-Brandpotion Glucometer) w/Device kit 1 kit, Does not [...] Diagnosis Date Noted 32 weeks gestation of ([facility]) 11/28/2019 Abdominal pain 06/12/2023 Acute bronchitis due to infection 06/12/2023 Acute on chronic vesicular eczema of hands and feet 11/15/2023 Anemia complicating childbirth ([facility]) 01/16/2020 Anticoagulant long-term use 02/22/2020 Antiphospholipid antibody positive 09/10/2017 Antiphospholipid antibody syndrome ([facility]) 07/07/2019 Anxiety 06/12/2023 Blood pressure elevated without history of HTN 11/15/2023 BMI 37.0-37.9, adult 11/15/2023 Cerebral infarction, unspecified ([facility]) 05/16/2019 Cerebrovascular accident (CVA) due to stenosis of middle cerebral artery ([facility]) 02/22/2020 Cervicalgia 02/05/2019 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 ([facility]) 01/08/2020 Coagulation defect, unspecified ([facility]) 02/05/2019 Cold intolerance 11/15/2023 Deficiency of other specified B group vitamins 05/16/2019 Deviated septum 11/15/2023 Dizziness and giddiness 02/05/2019 Dry mouth 11/15/2023 Dysfunction of eustachian tube 06/12/2023 Dyspnea 06/12/2023 Elevated blood pressure reading 11/15/2023 Encounter for supervision of normal , unspecified, first trimester ([facility]) 05/29/2019 Environmental allergies 11/15/2023 Fatigue 12/29/2016 First degree perineal laceration during delivery ([facility]) 01/16/2020 Frequency of micturition 02/19/2019 Genitourinary symptoms 08/19/2021 Gestational diabetes mellitus (GDM), antepartum ([facility]) 01/26/2022 H/O: hypothyroidism 11/15/2023 Hematochezia 06/12/2023 History [...] anemia 01/16/2020 Irregular uterine bleeding 11/15/2023 problem ([facility]) 06/12/2023 Less than 8 weeks gestation of ([facility]) 06/05/2019 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 02/05/2019 Migraine without aura and without status migrainosus, not intractable 09/12/2017 Morbid obesity ([facility] [place] [place]) 11/15/2023 Muscle fasciculation 08/19/2021 Nasal polyps 11/15/2023 Non-smoker 11/15/2023 NEETA (obstructive sleep apnea) 11/15/2023 Other acute postprocedural pain 02/03/2019 Other general symptoms and signs 10/28/2019 Other immediate hemorrhage ([facility]) 01/16/2020 Other specified noninflammatory disorders of vagina 02/21/2019 Pain in joint 12/29/2016 Palpitations 08/26/2019 Paresthesia of bilateral legs 11/15/2023 Pelvic and perineal pain 02/01/2019 Personal history of urinary (tract) infections 01/16/2020 Pre-diabetes 11/15/2023 Primary hypercoagulable state ([facility]) 08/01/2022 Pruritus, unspecified 01/02/2020 Psychogenic hyperventilation 06/12/2023 [...] of advanced maternal age in second trimester ([facility]) 01/05/2025 Thyroid disease 01/05/2025 Resolved Ambulatory Problems Diagnosis Date Noted No Resolved Ambulatory Problems Past Medical History: Diagnosis Date AMA (advanced maternal age) multigravida 35+ ([facility]) Anemia Antiphospholipid syndrome ([facility]) Gestational diabetes ([facility]) Heartburn Hypothyroid Stroke (HCC) HISTORY PAST MEDICAL [...] drainage of cyst WISDOM TOOTH EXTRACTION 2007 [place] teeth REVIEW OF SYSTEMS Review of Systems: [...] nursing note reviewed. Exam conducted with a investigative reporter present. Vitals: Estimated body mass index is 33.73 kg/m as calculated from the following: Height as of 11/19/23: 5' 6 . Weight as of this encounter: 209 lb. BP: 122/74 Patient's last menstrual period was 07/28/2024. ASSESSMENT & PLAN ICD-10-CM 1. Second trimester ([facility]) Z34.92 POCT urinalysis dipstick manually resulted 2. 23 weeks gestation of ([facility]) Z3A.23 3. Thyroid disease E07.9 Echocardiogram 2D complete ECG 12 lead unit performed Echocardiogram 2D complete 4. Gestational diabetes mellitus (GDM), antepartum, gestational diabetes method of control unspecified ([facility]) O24.419 Echocardiogram 2D complete ECG 12 lead unit performed Echocardiogram 2D complete 5. Multigravida of advanced maternal age in second trimester ([facility]) O09.522 Echocardiogram 2D complete ECG 12 lead [...] Wilton Herrmann DO documented in this encounterSaint Joseph Hospital [id number] History of Present illness Narrative* Jacque Pat RN - 01/05/2025 10:20 AM EDT NPH insulin prior authorization approved. Confirmed via telephone call with automated voice messaging system. Prior authorization number #[id number] documented in this encounterSouthview Medical Center09-04-2025 History of Present illness Narrative* Mukul Noyola MD - 01/01/2025 2:30 PM EDT Images from the original note were not included. Video Visit via Real-time Synchronous Audiovisual Provider Location: [facility] AT [address] [phone] Patient Location: Other [facility] Patient Location Buyer Liaison: None Video Visit Consent Statement: I discussed [...] that there are some limitations compared to [id number] evaluations. We elected to proceed. [facility] Maternal- [...] will be undergoing genetic testing through the cupola operator. There is family history of hypospadias and [...] Anemia Antiphospholipid antibody syndrome Cerebral infarction, unspecified ([facility] [place] [place]) 05/16/2019 Hypothyroid Migraine without aura and without status migrainosus, not intractable 09/12/2017 Stroke ([facility] [place] [place]) 2016 PSHIST: Past Surgical History: Procedure Laterality [...] contrast; Future - [facility] [place], [place]; Future 2. Antiphospholipid syndrome complicating , antepartum - Echo complete W/O contrast; Future - [facility] [place], [place]; Future 3. History of stroke 4. [...] intermittent symptoms concerning for an autoimmune condition [id number]. I recommended she sees a technical asst. Referral given. I asked her to hold [...] supposed to undergo genetic testing with her cupola operator. After the patient left I found that [...] asymptomatic I recommend that she sees a special class welder and she desires referral locally. Recommendations: - increase metformin to 1500 mg at night - she is willing to try the NPH 8 units at night - to continue to send blood glucoses to [facility] to review - follow-up survey and [...] vasectomy. Further recommendations to be made by [facility] as the progresses Plan reviewed with patient. She vocalized understanding all questions answered. The patient is to continue with routine care in your office Thank you for allowing me to participate in her care. Please contact me if you have any concerns. Mukul Noyola MD, FACOG (she/hers) Maternal- Medicine [facility] [address] [place] [address] This document was created with WaysGo technology. Though I make every effort to review the dictation as it is transcribed, on occasion the spoken word can be misinterpreted by the technology leading to inappropriate words, phrases, or sentences. This note is addressed to the requesting provider as a consultation for clinical guidance. Specificmedical abbreviations are occasionally used and those are generally approved by the [place]?Board of?Obstetrics and?Gynecology?as well as?Elizabeth guzman abbreviations. The above plan of care was based solely on the diagnoses for which a consultation was requested. ?More frequent testing may be indicated based on her other medical/obstetrical conditions. The management of other or medical conditions is beyond the scope of requested consultation and will c ontinue to be followed by the primary curb setter helper or primary care provider. Note to patient: [...] male Have you been seen here at [facility] in a previous ? yes Recent ER visits or hospitalizations? Seen in L&D for cramping about 2 weeks ago Bring blood sugar log or meter with you today? (Please bring them with you for every visit at [facility]) scanned to media tab Flu vaccine (Feb-June)? no Any concerns that you would like me to mention to the provider today? No concerns documented in this encounterKettering Health Behavioral Medical CenterTranscast Media [facility] [id number] Miscellaneous Notes* Telephone Encounter - PRISCILLA Del [...] and basics of CGM explained. Will send [facility] message with instructions on how to connect to our [facility] account. Explained how to prudence notes on the Jenifer kennedy for fasting BG and meals. documented in this encounterKettering Health Behavioral Medical CenterVelomedix [id number] Telephone encounter Note* Telephone Encounter - PRISCILLA [...] and basics of CGM explained. Will send [facility] message with instructions on how to connect to our [facility] account. Explained how to prudence notes on the Jenifer kennedy for fasting BG and meals. [facility] HospitalWelVU [id number] NoteHNO ID: [id number] Author: KATHERINE NEGRETE APRN.MACHINE BOBBIN WINDER Service: ? Author Type: Nurse Practitioner Type: Progress Notes Filed: 12/24/2024 21:07 Note Text: NAME: Sanna Rendon CLINIC NO.: [id number] DATE OF SERVICE: December 23, 2024 (Penelope) Some elements in this clinic note that are critical to medical decision making have been carefully reviewed and included from a prior clinic note dated: October 28, 2024 (Penelope) Additional Clinicians involved in Sanna Rendon's care: Drs. Herrmann, Jorge Monge, Humaira Gaviria, Dr. Boothe CC: Hypercoag state CASE SUMMARY / ASSESSMENT: 39 year old woman presents with a prior history of CVA in 2016 and an antiphospholipid antibody that was identified much later in 2018. These were found in [place], [place]. I don't have access to these [...] a target-like rash shortly before presenting to [facility] in 2015 with headaches and [...] g/dL, and platelets a (more content not included)...[facility]08-26-2025 History of Present illness Narrative* Katherine Negrete, VICTOR HUGO.MACHINE BOBBIN WINDER - 12/23/2024 11:50 AM EDT Images from the original note were not included. NAME: Sanna Rendon CLINIC NO.: [id number] DATE OF SERVICE: December 23, 2024 (Penelope) Some elements in this clinic note that are critical to medical decision making have been carefully reviewed and included from a prior clinic note dated: October 28, 2024 (Penelope) Additional Clinicians involved in Sanna Rendon's care: Drs. Herrmann, Jorge Monge, Humaira Gaviria, CC: Hypercoag state CASE SUMMARY / ASSESSMENT: 39 year old woman presents with a prior history of CVA in 2016 and an antiphospholipid antibody that was identified much later in 2018. These were found in [place], [place]. I don't have access to these [...] a target-like rash shortly before presenting to [facility] in 2015 with headaches and [...] Monge soon. When she hada stroke in [place], she had symptoms up to a month before: uncontrollable headache, BP was elevated, knee stiffness, and blurry vision. Right facial drooping and [facility] to [facility]. Updated Visit, [...] stayed on Lovenox Hgb 13.1 @ [facility] Recommended ER if persisting bleeding but she [...] and at age 69. Both lived in [facility] but she was adopted. She was not able to see ID in October and will be seeing Dr. Baugh next week. Also will have her see Dr. Hamlin for her clotting disorder and make any other recommendations to optimize her treatment. Updated Visit, October 08, 2020: Telephone only Received call from pt stating she was seen in [facility] for numbness in her chest, throat, and extremities, and sob which has been worsening over the last week. We arranged a telephone visit for her franci questions with me. Sanna Rendon is a 34 year old female seen for Hypercoagulable state and recent concerns and symptoms that required her to be seen at [facility]. She went to the ER with Gradual worsening of breathing after progressive tingling of fingers and legs. She currently remains very fatigued even though she is sleeping well. Now recalls that before her stroke she remembers having a bull's eye rash and was seen with severe headaches in [facility] was found to have a stroke [...] root canal and was sent to [facility] for MRI which was negative but non-contrasted. [...] history goes back to January [address] [facility] where she had persisting headaches and slurred speech followed by lower extremity weakness. This took a few months to resolve and she is back to her normal state of being but some point in time during her her next she was seen by Dr. Humera Hyde in [place] as well and was found to have [...] which included preparing to see the patient, [id number] patient care, completing clinical documentation, obtaining and/or reviewing separately obtained history, performing a medically appropriate examination, counseling and educating the pat ient/family/caregiver, ordering medications, tests, or procedures, independently interpreting results (not separately reported), and communicating results to the patient/family/caregiver. Katherine Negrete APRN.CNP Hematology and Oncology Services Provided at: [place], [place] CC: MD Wilton Day, [address] [place] [address] Humaira Gaviria MD [address] [facility] [address] MD Cosmo Kingston MD Michael Blank, MD documented in this encounterTrihealth08-20-2025 History of Present illness Narrative* BRENNEN Guillen - 12/17/2024 3:30 PM EDT REASON FOR OFFICE VISIT: Video Visit via Real-time Synchronous Audiovisual Provider Location: [facility] AT [address] [address] Patient Location: Patient's home Video [...] that there are some limitations compared to [id number] evaluations. The patient consented to the presence [...] a reaction that she reported to the [facility] office after her first dose and [...] TSH 1.25 10/28/2024 No results found for: [id number] No results found for: CREATININE , BUN [...] elevated in diabetic pregnancies. Also, if the is large, which can still happen despite [...] values to us weekly by e-mail to: [email or web address] or by fax to: [phone] TIME OF CONSULTATION: 45 minutes with the patient, >50% in discussion and counseling, coordination of care which was [id number], review of records and communication back to referring provider. BRENNEN Guillen 12/17/24 1619 documented in this encounterSouthview Medical Center08-15-2025 Miscellaneous Notes* Telephone Encounter - [...] 12/17/2024. Sanna verbalized understanding. documented in this encounterSouthview Medical Center08-15-2025 Telephone encounter Note* Telephone Encounter [...] Alisa Saba APRN 12/17/2024. Sanna verbalized understanding. [employer] Work Phone: [phone] Miscellaneous Notes* Telephone Encounter - PRISCILLA Sutherland [...] tried higher fiber snacks in the evening. [place]ade Ring Coverer told her that I would relay her concerns to [facility] physician and get back to her. Obtained blood sugars for this week and will scan them into her chart. documented in this encounterSouthview Medical Center08-15-2025 Telephone encounter Note* Telephone Encounter [...] tried higher fiber snacks in the evening. [employer] Shade Ring Coverer told her that I would relay her concerns to [facility] physician and get back to her. Obtained blood sugars for this week and will scan them into her chart. [employer] Work Phone: [phone] History of Present illness Narrative* Rosi Murray [...] Diagnosis Date Noted 32 weeks gestation of ([facility]) 11/28/2019 Abdominal pain 06/12/2023 Acute bronchitis due to infection 06/12/2023 Acute on chronic vesicular eczema of hands and feet 11/15/2023 Anemia complicating childbirth ([facility]) 01/16/2020 Anticoagulant long-term use 02/22/2020 Antiphospholipid antibody positive 09/10/2017 Antiphospholipid antibody syndrome ([facility]) 07/07/2019 Anxiety 06/12/2023 Blood pressure elevated without history of HTN 11/15/2023 BMI 37.0-37.9, adult 11/15/2023 Cerebral infarction, unspecified ([facility]) 05/16/2019 Cerebrovascular accident (CVA) due to stenosis of middle cerebral artery ([facility]) 02/22/2020 Cervicalgia 02/05/2019 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 ([facility]) 01/08/2020 Coagulation defect, unspecified ([facility]) 02/05/2019 Cold intolerance 11/15/2023 Deficiency of other specified B group vitamins 05/16/2019 Deviated septum 11/15/2023 Dizziness and giddiness 02/05/2019 Dry mouth 11/15/2023 Dysfunction of eustachian tube 06/12/2023 Dyspnea 06/12/2023 Elevated blood pressure reading 11/15/2023 Encounter for supervision of normal , unspecified, first trimester ([facility]) 05/29/2019 Environmental allergies 11/15/2023 Fatigue 12/29/2016 First degree perineal laceration during delivery ([facility]) 01/16/2020 Frequency of micturition 02/19/2019 Genitourinary symptoms 08/19/2021 Gestational diabetes mellitus (GDM) affecting ([facility]) 01/26/2022 H/O: hypothyroidism 11/15/2023 Hematochezia 06/12/2023 History [...] anemia 01/16/2020 Irregular uterine bleeding 11/15/2023 problem ([facility]) 06/12/2023 Less than 8 weeks gestation of ([facility]) 06/05/2019 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 02/05/2019 Migraine without aura and without status migrainosus, not intractable 09/12/2017 Morbid obesity ([facility] [place]) 11/15/2023 Muscle fasciculation 08/19/2021 Nasal polyps 11/15/2023 Non-smoker 11/15/2023 NEETA (obstructive sleep apnea) 11/15/2023 Other acute postprocedural pain 02/03/2019 Other general symptoms and signs 10/28/2019 Other immediate hemorrhage ([facility]) 01/16/2020 Other specified noninflammatory disorders of vagina 02/21/2019 Pain in joint 12/29/2016 Palpitations 08/26/2019 Paresthesia of bilateral legs 11/15/2023 Pelvic and perineal pain 02/01/2019 Personal history of urinary (tract) infections 01/16/2020 Pre-diabetes 11/15/2023 Primary hypercoagulable state ([facility]) 08/01/2022 Pruritus, unspecified 01/02/2020 Psychogenic hyperventilation 06/12/2023 Raised antibody titer 09/25/2017 Right lower quadrant pain 11/15/2023 Right otitis externa 11/15/2023 Salivary gland swelling 11/15/2023 Single live ([facility]) 01/15/2020 Snoring 11/15/2023 Speech and language deficit [...] drainage of cyst WISDOM TOOTH EXTRACTION 2007 [place] teeth REVIEW OF SYSTEMS Review of Systems: [...] nursing note reviewed. Exam conducted with a investigative reporter present. Vitals: Estimated body mass index is 33.41 kg/m as calculated from the following: Height as of 11/19/23: 5' 6 . Weight as of this encounter: 207 lb. BP: 120/70 Patient's last menstrual period was 07/28/2024. ASSESSMENT & PLAN ICD-10-CM 1. 19 weeks gestation of ([facility]) Z3A.19 POCT urinalysis dipstick manually resulted 2. Second trimester ([facility]) Z34.92 POCT urinalysis dipstick manually resulted 3. Thyroid disease E07.9 4. Multigravida of advanced maternal age in second trimester ([facility]) O09.522 5. Gestational diabetes mellitus (GDM), antepartum, gestational diabetes method of control unspecified ([facility]) O24.419 Patient presents today for a routine [...] scan and Telemedicine with MFM provider in [place]. Documented by Rosi Murray LPN on behalf of: Wilton Herrmann DO documented in this encounterSaint Joseph Hospital [id number] Miscellaneous Notes* Telephone Encounter - Anni Abreu CMA - 12/03/2024 3:01 PM EDT Left message with patient to call our office to schedule her next appt in 2 week with an OFFSET PRESSMAN/PA. Left call back number and to press option 3 for scheduling. documented in this encounterSouthview Medical Center08-06-2025 Telephone encounter Note* Telephone Encounter - Anni Abreu CMA - 12/03/2024 3:01 PM EDT Left message with patient to call our office to schedule her next appt in 2 week with an OFFSET PRESSMAN/PA. Left call back number and to press option 3 for scheduling. [facility]08-[facility] History of Present illness Narrative* Alisa Saba, VICTOR HUGO-MACHINE BOBBIN WINDER - 12/03/2024 2:00 PM EDT REASON FOR [...] starting insulin. She is being followed at [facility] due to GDMA2. States she is following [...] TSH 1.25 10/28/2024 No results found for: [id number] No results found for: CREATININE , BUN [...] baby. Little research has been done on skilled nursing effects of Metformin exposure to the fetus. [...] by e-mail to: or by fax to: [phone] TIME OF CONSULTATION: 60 minutes with the patient, >50% in discussion and counseling, coordination of care which was [id number], review of records and communication back to referring provider. BRENNEN Guillen 12/03/24 1500 documented in this encounterSouthview Medical Center07-24-2025 History of Present illness Narrative* [...] to check FSBS. Blood Glucose Monitoring Suppl (D-Brandpotion Glucometer) w/Device kit 1 kit, Does not [...] Diagnosis Date Noted 32 weeks gestation of ([facility]) 11/28/2019 Abdominal pain 06/12/2023 Acute bronchitis due to infection 06/12/2023 Acute on chronic vesicular eczema of hands and feet 11/15/2023 Anemia complicating childbirth ([facility]) 01/16/2020 Anticoagulant long-term use 02/22/2020 Antiphospholipid antibody positive 09/10/2017 Antiphospholipid antibody syndrome ([facility]) 07/07/2019 Anxiety 06/12/2023 Blood pressure elevated without history of HTN 11/15/2023 BMI 37.0-37.9, adult 11/15/2023 Cerebral infarction, unspecified ([facility]) 05/16/2019 Cerebrovascular accident (CVA) due to stenosis of middle cerebral artery ([facility]) 02/22/2020 Cervicalgia 02/05/2019 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 ([facility]) 01/08/2020 Coagulation defect, unspecified ([facility]) 02/05/2019 Cold intolerance 11/15/2023 Deficiency of other specified B group vitamins 05/16/2019 Deviated septum 11/15/2023 Dizziness and giddiness 02/05/2019 Dry mouth 11/15/2023 Dysfunction of eustachian tube 06/12/2023 Dyspnea 06/12/2023 Elevated blood pressure reading 11/15/2023 Encounter for supervision of normal , unspecified, first trimester ([facility]) 05/29/2019 Environmental allergies 11/15/2023 Fatigue 12/29/2016 First degree perineal laceration during delivery ([facility]) 01/16/2020 Frequency of micturition 02/19/2019 Genitourinary symptoms 08/19/2021 Gestational diabetes mellitus (GDM) affecting ([facility]) 01/26/2022 H/O: hypothyroidism 11/15/2023 Hematochezia 06/12/2023 History [...] anemia 01/16/2020 Irregular uterine bleeding 11/15/2023 problem ([facility]) 06/12/2023 Less than 8 weeks gestation of ([facility]) 06/05/2019 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 02/05/2019 Migraine without aura and without status migrainosus, not intractable 09/12/2017 Morbid obesity ([facility] [place]) 11/15/2023 Muscle fasciculation 08/19/2021 Nasal polyps 11/15/2023 Non-smoker 11/15/2023 NEETA (obstructive sleep apnea) 11/15/2023 Other acute postprocedural pain 02/03/2019 Other general symptoms and signs 10/28/2019 Other immediate hemorrhage ([facility]) 01/16/2020 Other specified noninflammatory disorders of vagina 02/21/2019 Pain in joint 12/29/2016 Palpitations 08/26/2019 Paresthesia of bilateral legs 11/15/2023 Pelvic and perineal pain 02/01/2019 Personal history of urinary (tract) infections 01/16/2020 Pre-diabetes 11/15/2023 Primary hypercoagulable state ([facility]) 08/01/2022 Pruritus, unspecified 01/02/2020 Psychogenic hyperventilation 06/12/2023 Raised antibody titer 09/25/2017 Right lower quadrant pain 11/15/2023 Right otitis externa 11/15/2023 Salivary gland swelling 11/15/2023 Single live ([facility]) 01/15/2020 Snoring 11/15/2023 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) 12/30/2019 Suspected severe acute respiratory syndrome coronavirus 2 (SARS-CoV-2) infection 06/12/2023 SVT (supraventricular tachycardia) ([facility]) 08/26/2019 Syncope and collapse 06/03/2018 Other [...] drainage of cyst WISDOM TOOTH EXTRACTION 2007 [place] teeth REVIEW OF SYSTEMS Review of Systems: [...] nursing note reviewed. Exam conducted with a investigative reporter present. Vitals: Estimated body mass index is 33.57 kg/m as calculated from the following: Height as of 11/19/23: 5' 6 . Weight as of this encounter: 208 lb. BP: 108/76 Patient's last menstrual period was 07/28/2024. ASSESSMENT & PLAN ICD-10-CM 1. Second trimester ([facility]) Z34.92 Alpha fetoprotein, maternal Alpha fetoprotein, maternal 2. 16 weeks gestation of ([facility]) Z3A.16 POCT urinalysis dipstick manually resulted 3. Screening, , for anatomic survey ([facility]) Z36.89 CANCELED: US OB 14+ weeks anatomy [...] Wilton Herrmann DO documented in this encounterSaint Joseph Hospital [id number] Group counseling note* Group Note - Cindy [...] Face to face time was 100 minutes. [employer] Work Phone: [phone] 710-610307-23-2025 Miscellaneous Notes* Group Note - Cindy Miller [...] time was 100 minutes. documented in this encounterKettering Health Behavioral Medical CenterVelomedix [id number] Telephone encounter Note* Telephone Encounter - Rachael Johnson RN - 11/05/2024 12:48 PM EDT Pt updated. She reports she is unable to take aspirin. It makes my electrolytes go out of whack. Ididn't take with my previous pregnancies and I am not comfortable taking this time either. She will continue with Lovenox, as recommended. 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 She denies further questions, needs or concerns for our care team at this time. Appt verified for RTC Rachael Johnson RN [facility]07-09-2025 Miscellaneous Notes* Telephone Encounter - Rachael Johnson RN - 11/05/2024 12:48 PM EDT Pt updated. She reports she is unable to take aspirin. It makes my electrolytes go out of whack. Ididn't take with my previous pregnancies and I am not comfortable taking this time either. She will continue with Lovenox, as recommended. 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 She denies further questions, [...] this time. Will monitor. Thanks, Katherine Negrete APRN.MACHINE BOBBIN WINDER * Telephone Encounter - Abbie Jimenez PA-C [...] note were not included. documented in this encounterTrihealth07-09-2025 Telephone encounter Note * Telephone Encounter - Katherine Negrete APRN.CNP - 11/05/2024 12:29 PM EDT Spoke with Dr. Moscoso and she is to continue Lovenox 40 daily and add baby asa (81 mg) daily. Please also make sure she is following OB High risk. Labs acceptable at this time. Will monitor. Thanks, Katherine Negrete APRN.MACHINE BOBBIN WINDER [facility] Work Phone: [phone] Telephone encounter Note* Telephone Encounter - Abbie Jimenez PA-C - 11/04/2024 8:13 AM EDT Katherine saw this patient last and will be able to advise better of the plan of care. Abbie Jimenez PA-C [facility] Work Phone: [phone] History of Present illness Narrative* Rosi Murray [...] Diagnosis Date Noted 32 weeks gestation of ([facility]) 11/28/2019 Abdominal pain 06/12/2023 Acute bronchitis due to infection 06/12/2023 Acute on chronic vesicular eczema of hands and feet 11/15/2023 Anemia complicating childbirth ([facility]) 01/16/2020 Anticoagulant long-term use 02/22/2020 Antiphospholipid antibody positive 09/10/2017 Antiphospholipid antibody syndrome ([facility]) 07/07/2019 Anxiety 06/12/2023 Blood pressure elevated without history of HTN 11/15/2023 BMI 37.0-37.9, adult 11/15/2023 Cerebral infarction, unspecified ([facility]) 05/16/2019 Cerebrovascular accident (CVA) due to stenosis of middle cerebral artery ([facility]) 02/22/2020 Cervicalgia 02/05/2019 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 ([facility]) 01/08/2020 Coagulation defect, unspecified ([facility]) 02/05/2019 Cold intolerance 11/15/2023 Deficiency of other specified B group vitamins 05/16/2019 Deviated septum 11/15/2023 Dizziness and giddiness 02/05/2019 Dry mouth 11/15/2023 Dysfunction of eustachian tube 06/12/2023 Dyspnea 06/12/2023 Elevated blood pressure reading 11/15/2023 Encounter for supervision of normal , unspecified, first trimester ([facility]) 05/29/2019 Environmental allergies 11/15/2023 Fatigue 12/29/2016 First degree perineal laceration during delivery ([facility]) 01/16/2020 Frequency of micturition 02/19/2019 Genitourinary symptoms 08/19/2021 Gestational diabetes mellitus (GDM) affecting ([facility]) 01/26/2022 H/O: hypothyroidism 11/15/2023 Hematochezia 06/12/2023 History [...] anemia 01/16/2020 Irregular uterine bleeding 11/15/2023 problem ([facility]) 06/12/2023 Less than 8 weeks gestation of ([facility]) 06/05/2019 assisted (current) use of 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/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 02/05/2019 Migraine without aura and without status migrainosus, not intractable 09/12/2017 Morbid obesity ([facility] [place]) 11/15/2023 Muscle fasciculation 08/19/2021 Nasal polyps 11/15/2023 Non-smoker 11/15/2023 NEETA (obstructive sleep apnea) 11/15/2023 Other acute postprocedural pain 02/03/2019 Other general symptoms and signs 10/28/2019 Other immediate hemorrhage ([facility]) 01/16/2020 Other specified noninflammatory disorders of vagina 02/21/2019 Pain in joint 12/29/2016 Palpitations 08/26/2019 Paresthesia of bilateral legs 11/15/2023 Pelvic and perineal pain 02/01/2019 Personal history of urinary (tract) infections 01/16/2020 Pre-diabetes 11/15/2023 Primary hypercoagulable state ([facility]) 08/01/2022 Pruritus, unspecified 01/02/2020 Psychogenic hyperventilation 06/12/2023 Raised antibody titer 09/25/2017 Right lower quadrant pain 11/15/2023 Right otitis externa 11/15/2023 Salivary gland swelling 11/15/2023 Single live ([facility]) 01/15/2020 Snoring 11/15/2023 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) 12/30/2019 Suspected severe acute respiratory syndrome coronavirus 2 (SARS-CoV-2) infection 06/12/2023 SVT (supraventricular tachycardia) ([facility]) 08/26/2019 Syncope and collapse 06/03/2018 Other [...] drainage of cyst WISDOM TOOTH EXTRACTION 2007 [place] teeth REVIEW OF SYSTEMS Review of Systems: [...] nursing note reviewed. Exam conducted with a investigative reporter present. Vitals: Estimated body mass index is 33.81 kg/m as calculated from the following: Height as of 11/19/23: 5' 6 . Weight as of this encounter: 209 lb 8 oz. BP: 110/76 Patient's last menstrual period was 07/28/2024. ASSESSMENT & PLAN ICD-10-CM 1. Second trimester ([facility]) Z34.92 POCT urinalysis dipstick manually resulted 2. 13 weeks gestation of ([facility]) Z3A.13 3. Thyroid disease E07.9 4. Multigravida of advanced maternal age in second trimester ([facility]) O09.522 New OB: Patient presents today for [...] 40 Lovenox and will be referred to [facility] for recommendations/co-management throughout . Discussed concerns [...] Wilton Herrmann DO documented in this encounterSaint Joseph Hospital [id number] Telephone encounter Note* Telephone Encounter - Valeri Yeung RN - 10/30/2024 8:30 AM EDT Labs resulted. Please advise. Valeri Yeung RN [facility]07-01-2025 Telephone encounter Note* Telephone Encounter - Roberta Haskins - 10/28/2024 2:52 PM EDT Images from the original note were not included. [facility]-01[facility]2025 NoteHNO ID: [id number] Author: KATHERINE NEGRETE APRN.MACHINE BOBBIN WINDER Service: ? Author Type: Nurse Practitioner Type: Progress Notes Filed: 10/29/2024 21:44 Note Text: NAME: Sanna Rendon CLINIC NO.: [id number] DATE OF SERVICE: October 28, 2024 (Penelope) Some elements in this clinic note that [...] later in 2018. These were found in [place], [place]. I don't have access to these [...] a target-like rash shortly before presenting to [facility] in 2016 with headaches and [...] vision changes both have (more content not included)...[facility]07-01-2025 History of Present illness Narrative* Katherine Negrete APRN.MACHINE BOBBIN WINDER - 10/28/2024 2:33 PM EDT Images from the original note were not included. NAME: Sanna Rendon CLINIC NO.: [id number] DATE OF SERVICE: October 28, 2024 (Penelope) Some elements in this clinic note that [...] later in 2018. These were found in [place], [place]. I don't have access to these [...] a target-like rash shortly before presenting to [facility] in 2015 with headaches and [...] Monge soon. When she hada stroke in [place], she had symptoms up to a month before: uncontrollable headache, BP was elevated, knee stiffness, and blurry vision. Right facial drooping and difficulty speaking sent her to [facility]. She continues to take vitamins. Updated [...] stayed on Lovenox Hgb 13.1 @ [facility] Recommended ER if persisting bleeding but she [...] and at age 69. Both lived in [facility] but she was adopted. She was not able to see ID in October and will be seeing Dr. Baugh next week. Also will have her see Dr. Hamlin for her clotting disorder and make any other recommendations to optimize her treatment. Updated Visit, October 08, 2020: Telephone only Received call from pt stating she was seen in [facility] for numbness in her chest, throat, and extremities, and sob which has been worsening over the last week. We arranged a telephone visit for her chanw questions with me. Sanna Rendon is a 34 year old female seen for Hypercoagulable state and recent concerns and symptoms that required her to be seen at [facility]. She went to the ER with Gradual worsening of breathing after progressive tingling of fingers and legs. She currently remains very fatigued even though she is sleeping well. Now recalls that before her stroke she remembers having a bull's eye rash and was seen with severe headaches in [place], [place] - was found to have a [...] root canal and was sent to [facility] for MRI which was negative but non-contrasted. [...] history goes back to January [address] [facility] where she had persisting headaches and slurred speech followed by lower extremity weakness. This took a few months to resolve and she is back to her normal state of being but some point in time during her her next she was seen by Dr. Humera Hyde in [place] as well and was found to have [...] which included preparing to see the patient, uyga-nt-nqfe patient care, completing clinical documentation, obtaining and/or reviewing separately obtained history, performing a medically appropriate examination, counseling and educating the pat ient/family/caregiver, ordering medications, tests, or procedures, independently interpreting results (not separately reported), and communicating results to the patient/family/caregiver. Katherine Negrete APRN.[facility] Hematology and Oncology Services Provided at: [place], [place] CC: MD Wilton Day, [address] [place] [address] Humaira Gaviria MD [address] [place] [id number] MD Cosmo Kingston MD Michael Blank, MD documented in this encounterTrihealth06-27-2025 Telephone encounter Note * Telephone Encounter - Kaur Dunham MA - 10/24/2024 2:14 PM EDT New orders may need placed for appt on 10/28. Kaur Dunham MA [facility]06-27-2025 Miscellaneous Notes* Telephone Encounter - Kaur Dunham MA - 10/24/2024 2:14 PM EDT New orders may need placed for appt on 10/28. Kaur Dunham MA documented in this encounterTrihealth06-16-2025 Miscellaneous Notes* Telephone Encounter - Margo Khan RN - 10/13/2024 12:14 PM EDT Attempted to contact patient x3, call cannot be completed, cannot receive calls at this time. Unable to leave a voicemail. [facility] Telephone encounter Note* Telephone Encounter - Margo Khan RN - 10/13/2024 12:14 PM EDT Attempted to contact patient x3, call cannot be completed, cannot receive calls at this time. Unable to leave a voicemail. [facility]06-05-2025 History of Present illness Narrative* [...] Less than 8 weeks gestation of 06/05/2019 assisted (current) use of 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/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 02/05/2019 Migraine without aura and without status migrainosus, not intractable (CMS/HCC) 09/12/2017 Morbid obesity (CMS/[facility]) 11/15/2023 Muscle fasciculation 08/19/2021 Nasal polyps [...] (CMS/HCC) 08/01/2022 Pruritus, unspecified 01/02/2020 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[facility]) 06/12/2023 Raised antibody titer 09/25/2017 Right lower quadrant pain 11/15/2023 Right otitis externa 11/15/2023 Salivary gland swelling 11/15/2023 Single live 01/15/2020 Snoring 11/15/2023 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) 12/30/2019 Suspected severe acute respiratory syndrome coronavirus 2 (SARS-CoV-2) infection 06/12/2023 SVT (supraventricular tachycardia) ([facility]) 08/26/2019 Syncope and collapse 06/03/2018 Other bacterial infections of unspecified site 06/27/2019 Thrombocytopenia, unspecified ([facility]) 11/20/2019 Hypoglycemia 06/12/2023 Unspecified condition associated with female genital organs and menstrual cycle 05/09/2019 Unspecified ovarian cyst, right side 02/06/2019 Urinary tract infection 10/16/2019 Referred otalgia of right ear 11/19/2023 LPRD (laryngopharyngeal reflux disease) 11/19/2023 Resolved Ambulatory Problems Diagnosis Date Noted No Resolved Ambulatory Problems Past Medical History: Diagnosis Date AMA (advanced maternal age) multigravida 35+ Anemia Antiphospholipid syndrome ([facility]) Gestational diabetes Heartburn Hypothyroid ([facility]) Stroke ([facility]) Family History Problem Relation Name Age of [...] drainage of cyst WISDOM TOOTH EXTRACTION 2007 [place] teeth Allergies Allergen Reactions Ciprofloxacin GI intolerance [...] TSH Nurse Note: Patient desires to have [place] billion to one. Pt was advised to [...] Lala Hess MA documented in this encounterSaint Joseph Hospital [id number] NotePatient Education Infectious Disease Upper Respiratory Infection, [...] to help relieve symptoms, such as: ??? Znen-mxa-oyufrzu cold medicines. ??? Cough suppressants. Coughing is [...] other clear broths. General instructions ??? Take qgca-sua-uaqeedx and prescription medicines only as told by [...] and water are not available, use hand route sales representative. ??? Avoid touching your mouth, face, eyes, [...] a stiff neck. ? (more content not included)...[facility]05-07-2025 Miscellaneous Notes* Telephone Encounter - [...] advise Rachael Johnson RN documented in this encounterTrihealth05-07-2025 Telephone encounter Note * Telephone Encounter - Rachael Johnson RN - 09/03/2024 1:25 PM EDT Pt notified and appt for September. She denies any further questions, needs or concerns at thistime. Rachael Johnson RN [facility]05-07-2025 Telephone encounter Note* Telephone Encounter - Kristofer Calix MD - 09/03/2024 12:51 PM EDT No change in meds. [facility]05-06-2025 Telephone encounter Note* Telephone Encounter - Rachael Johnson RN - 09/02/2024 9:37 AM EDT Pt left a voicemail to inform she is approximately 5 weeks . She is asking any recommendations on med changes. Pt missed today's appt. Called and left VM to please call and schedule missed follow up MUNIRA. Fely: Please advise Rachael Johnson RN [facility]04-29-2025 Telephone encounter Note* Telephone Encounter - Serina Dawson MA - 08/26/2024 3:41 PM EDT Patient has an appt on 08/27/24. Would you like labs, if so place orders. Serina Dawson MA [facility]04-29-2025 Miscellaneous Notes* Telephone Encounter - Serina Horton MA - 08/26/2024 3:41 PM EDT Patient has an appt on 08/27/24. Would you like labs, if so place orders. Serina Dawson MA documented in this encounterTrihealth04-08-2025 Evaluation + Plan note Future Scheduled Tests Laboratory* HgbA1c 08/05/24 * HgbA1c 11/04/24 Radiology* CT Soft Tissue Neck w/ Contrast 11/12/23 [facility] 03-27-2025 History of Present illness [...] affecting obstetrical care 01/08/2020 Coagulation defect, unspecified ([facility]) 02/05/2019 Cold intolerance 11/15/2023 Deficiency of [...] Less than 8 weeks gestation of 06/05/2019 assisted (current) use of 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/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 02/05/2019 Migraine without aura and without status migrainosus, not intractable ([facility]) 09/12/2017 Morbid obesity ([facility]) 11/15/2023 Muscle fasciculation 08/19/2021 Nasal polyps [...] infections 01/16/2020 Pre-diabetes 11/15/2023 Primary hypercoagulable state ([facility]/HCC) 08/01/2022 Pruritus, unspecified 01/02/2020 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[facility]) 06/12/2023 Raised antibody titer 09/25/2017 Right lower quadrant pain 11/15/2023 Right otitis externa 11/15/2023 Salivary gland swelling 11/15/2023 Single live 01/15/2020 Snoring 11/15/2023 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) 12/30/2019 Suspected severe acute respiratory syndrome coronavirus 2 (SARS-CoV-2) infection 06/12/2023 SVT (supraventricular tachycardia) ([facility]) 08/26/2019 Syncope and collapse 06/03/2018 Other bacterial infections of unspecified site 06/27/2019 Thrombocytopenia, unspecified ([facility]) 11/20/2019 Hypoglycemia 06/12/2023 Unspecified condition associated [...] Antiphospholipid syndrome (CMS/HCC) Gestational diabetes Heartburn Hypothyroid ([facility]) Stroke ([facility]/HCC) HISTORY PAST MEDICAL HISTORY SOCIAL HISTORY Past Medical History: Diagnosis Date AMA (advanced maternal age) multigravida 35+ Anemia Antiphospholipid syndrome (CMS/HCC) Gestational diabetes Heartburn Hypothyroid ([facility]/HCC) Stroke (CMS/HCC) Social History Tobacco Use Smoking [...] drainage of cyst WISDOM TOOTH EXTRACTION 2007 [place] teeth REVIEW OF SYSTEMS Review of Systems: [...] nursing note reviewed. Exam conducted with a investigative reporter present. Vitals: Estimated body mass index is [...] Wilton Herrmann DO documented in this encounterSaint Joseph Hospital [id number] NotePatient Education Emergency Medicine Bradycardia, Adult Bradycardia is a pgriow-azdn-atqriz heartbeat. A normal resting heart rate for [...] provider. ??? Follow a heart-healthy diet. A military logistics specialist (dietitian) can help educate you about [...] liquor (44 mL). General instructions ??? Take oojs-axq-stzsimx and prescription medicines only as told by [...] irregular heartbeat (palpitations). ??? (more content not included)...[facility]03-03-2025 Hospital Discharge instructions Patient Education [...] Follow these instructions at home: Medicines Give gmwn-cba-eaefdnw and prescription medicines only as told by [...] find more information PANDAS Network: pandasnetwork.org National [place] [address] of Mental Health: [facility] - bend.nih.gov Contact a health care provider if: Your [...] the National Suicide Prevention Lifeline at or 681. This is open 24 hours a day. Text the Crisis Text Line at 220740. Summary Pediatric autoimmune neuropsychiatric disorders associated with [...] provider. Document Revised: 01/09/2022 Document Reviewed: 01/09/2022 [employer] Patient Education 2023 [employer]. 06/30/2024 09:20:50 Common Variable Immunodeficiency Common [...] Follow these instructions at home: Medicines Take ryrn-tip-gxorwgu and prescription medicines only as told by [...] disease. Where to find more information National [address] of Allergy and Infectious Disease: www.niaid.nih.gov Contact [...] risk for frequent or unusual infections. Take tigc-luj-hztbgel and prescription medicines only as told by [...] provider. Document Revised: 11/18/2021 Document Reviewed: 11/18/2021 [employer] Patient Education 2023 [employer]. 06/30/2024 09:18:06 DASH Eating Plan DASH Eating [...] Dairy Whole or 2% milk, cream, and lwnk-xmw-alzr. Whole or full-fat cream cheese. Whole-fat or [...] more information National Heart, Lung, and Blood [address] (NHLBI): nhlbi.nih.gov [place] Heart Association (AHA): heart.org Academy of Nutrition and Dietetics: eatright.org National Kidney Foundation (NKF): kidney.org This information is not intended to replace advice given to you by your health care provider. Make sure you discuss any questions you have with your health care provider. Document Revised: 05/03/2023 Document Reviewed: 05/03/2023 [employer] Patient Education 2023 [employer]edExchange. Follow Up Care 06/25/2024 13:53:59 With:PRAVEEN RESEDNEZ FAAFP, CHRIS Perez, PED Address: [facility] [place] [address]- When:Within 2 Month(s) [facility] 03-03-2025 NotePatient Education Immunology Common [...] these instructions at home: Medicines ??? Take qfnx-bdm-ukhmeoq and prescription medicines only as told by [...] Where to find more information ??? National [place] of Allergy and Infectious Disease: www.niaid.nih.gov Contact a health care provider if: ??? You have a fever. ??? You have any symptoms of infection such as chills, worsening cough, or severe earache. ??? You make high-pitched whistling sounds when you breathe, most often when you breathe out (wheeze). (more content not included)...[facility]02-24-2025 History of Present illness Narrative* Rosi Murray, CHILLER OPERATOR - 06/23/2024 3:00 PM EST Reason for [...] Antiphospholipid antibody positive 09/10/2017 Antiphospholipid antibody syndrome ([facility]/HCC) 07/07/2019 Anxiety 06/12/2023 Blood pressure elevated without history of HTN 11/15/2023 BMI 37.0-37.9, adult 11/15/2023 Cerebral infarction, unspecified ([facility]) 05/16/2019 Cerebrovascular accident (CVA) due to stenosis of middle cerebral artery ([facility]) 02/22/2020 Cervicalgia 02/05/2019 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 Coagulation defect, unspecified ([facility]) 02/05/2019 Cold intolerance 11/15/2023 Deficiency of [...] than 8 weeks gestation of 06/05/2019 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 02/05/2019 Migraine without aura and without status migrainosus, not intractable ([facility]) 09/12/2017 Morbid obesity ([facility]) 11/15/2023 Muscle fasciculation 08/19/2021 Nasal polyps [...] infections 01/16/2020 Pre-diabetes 11/15/2023 Primary hypercoagulable state ([facility]) 08/01/2022 Pruritus, unspecified 01/02/2020 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[facility]) 06/12/2023 Raised antibody titer 09/25/2017 Right lower quadrant pain 11/15/2023 Right otitis externa 11/15/2023 Salivary gland swelling 11/15/2023 Single live 01/15/2020 Snoring 11/15/2023 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) 12/30/2019 Suspected severe acute respiratory syndrome coronavirus 2 (SARS-CoV-2) infection 06/12/2023 SVT (supraventricular tachycardia) ([facility]) 08/26/2019 Syncope and collapse 06/03/2018 Other bacterial infections of unspecified site 06/27/2019 Thrombocytopenia, unspecified ([facility]) 11/20/2019 Hypoglycemia 06/12/2023 Unspecified condition associated with female genital organs and menstrual cycle 05/09/2019 Unspecified ovarian cyst, right side 02/06/2019 Urinary tract infection 10/16/2019 Referred otalgia of right ear 11/19/2023 LPRD (laryngopharyngeal reflux disease) 11/19/2023 Resolved Ambulatory Problems Diagnosis Date Noted No Resolved Ambulatory Problems Past Medical History: Diagnosis Date AMA (advanced maternal age) multigravida 35+ Anemia Antiphospholipid syndrome ([facility]) Gestational diabetes Heartburn Hypothyroid ([facility]) Stroke ([facility]) HISTORY PAST MEDICAL HISTORY SOCIAL HISTORY [...] drainage of cyst WISDOM TOOTH EXTRACTION 2007 [place] teeth REVIEW OF SYSTEMS Review of Systems: [...] nursing note reviewed. Exam conducted with a investigative reporter present. Vitals: Estimated body mass index is [...] Wilton Herrmann DO documented in this encounterSaint Joseph Hospital [id number] Hospital Discharge instructions Patient Education 06/09/2024 14:23:47 [...] Do not chew gum. General instructions Take nhqt-bxy-ddtpwbj and prescription medicines only as told by [...] important. Where to find more information National [address] of Dental and Craniofacial Research: www.nidcr.nih.gov Contact [...] provider. Document Revised: 11/27/2021 Document Reviewed: 11/27/2021 K[employer]qed Patient Education 2023 [employer]edExchange. Follow Up Care 06/06/2024 11:26:13 With:PRAVEEN RESENDEZ FAAFP, CHRIS Perez, PED Address: [address] [place] [address] [facility] [place] [id number]- When:Within 6 Month(s) [facility] 02-10-2025 NotePatient Education Orthopedics Temporomandibular [...] not chew gum. General instructions ??? Take dzbv-lmv-adchsvz and prescription medicines only as told by [...] Where to find more information ??? National [address] of Dental and Craniofacial Research: www.nidcr.nih.gov Contact [...] provider. Document Revised: 11/27/2021 Document Reviewed: 11/27/2021 ElseBodyMedia Patient Education ? 2023 K[employer]ed Inc.[facility] 06-02-2024 History of Present illness [...] Antiphospholipid antibody positive 09/10/2017 Antiphospholipid antibody syndrome ([facility]) 07/07/2019 Anxiety 06/12/2023 Blood pressure elevated without history of HTN 11/15/2023 BMI 37.0-37.9, adult 11/15/2023 Cerebral infarction, unspecified ([facility]) 05/16/2019 Cerebrovascular accident (CVA) due to stenosis of middle cerebral artery ([facility]) 02/22/2020 Cervicalgia 02/05/2019 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 Coagulation defect, unspecified ([facility]) 02/05/2019 Cold intolerance 11/15/2023 Deficiency of [...] Less than 8 weeks gestation of 06/05/2019 assisted (current) use of 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/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 02/05/2019 Migraine without aura and without status migrainosus, not intractable ([facility]) 09/12/2017 Morbid obesity ([facility]) 11/15/2023 Muscle fasciculation 08/19/2021 Nasal polyps [...] infections 01/16/2020 Pre-diabetes 11/15/2023 Primary hypercoagulable state ([facility]) 08/01/2022 Pruritus, unspecified 01/02/2020 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[facility]) 06/12/2023 Raised antibody titer 09/25/2017 Right lower quadrant pain 11/15/2023 Right otitis externa 11/15/2023 Salivary gland swelling 11/15/2023 Single live 01/15/2020 Snoring 11/15/2023 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) 12/30/2019 Suspected severe acute respiratory syndrome coronavirus 2 (SARS-CoV-2) infection 06/12/2023 SVT (supraventricular tachycardia) ([facility]) 08/26/2019 Syncope and collapse 06/03/2018 Other bacterial infections of unspecified site 06/27/2019 Thrombocytopenia, unspecified ([facility]) 11/20/2019 Hypoglycemia 06/12/2023 Unspecified condition associated [...] (CMS/HCC) Gestational diabetes Heartburn Hypothyroid (CMS/HCC) Stroke ([facility]) Social History Tobacco Use Smoking status: [...] drainage of cyst WISDOM TOOTH EXTRACTION 2007 [place] teeth REVIEW OF SYSTEMS Review of Systems: [...] nursing note reviewed. Exam conducted with a investigative reporter present. Vitals: Estimated body mass index is [...] had recent HCG level drawn at [facility] 05/31/2024 lab value was 6. Documented by Renate Vegas LPN on behalf of: Wilton Herrmann DO documented in this encounterSaint Joseph Hospital [id number] Telephone encounter Note* Telephone Encounter - Taylor Escudero - 05/28/2024 1:45 PM EST Triage to call with iron results [facility]01-29-2025 Miscellaneous Notes* Telephone Encounter - Taylor Escudero - 05/28/2024 1:45 PM EST Triage to call with iron results documented in this encounterTrihealth01-29-2025 Instructions* Patient Instructions* Nathaly Florence - 05/28/2024 1:44 PM EST Triage to call iron results Continue Lovenox - patient prefers 40 mg (rather than rec 80mg) Encouraged her to reconsider Take B12 supplement in the form of a sublingual tablet RTC in 3 months Labs same day or 2-7 days prior documented in this encounterTrihealth01-29-2025 History of Present illness Narrative* Kristofer Calix MD - 05/28/2024 1:00 PM EST Images from the original note were not included. NAME: Sanna Rendon CLINIC NO.: [id number] DATE OF SERVICE: May 28, 2024 (Levon) [...] later in 2018. These were found in [place], [place]. I don't have access to these [...] a target-like rash shortly before presenting to [facility] in 2015 with headaches and [...] Monge soon. When [place]a stroke in [place], she had symptoms up to a month before: uncontrollable headache, BP was elevated, knee stiffness, and blurry vision. Right facial drooping and difficulty [facility] She continues to take vitamins. Updated Visit, [...] stayed on Lovenox Hgb 13.1 @ [facility] Recommended ER if persisting bleeding but she [...] and at age 69. Both lived in [place], [place] - but she was adopted. She was not able to see ID in October and will be seeing Dr. Baugh next week. Also will have her see Dr. Hamlin for her clotting disorder and make any other recommendations to optimize her treatment. Updated Visit, October 08, 2020: Telephone only Received call from pt stating she was seen in [facility] for numbness in her chest, throat, and extremities, and sob which has been worsening over the last week. We arranged a telephone visit for her franci questions with me. Sanna Rendon is a 34 year old female seen for Hypercoagulable state and recent concerns and symptoms that required her to be seen at [facility]. She went to the ER with Gradual worsening of breathing after progressive tingling of fingers and legs. She currently remains very fatigued even though she is sleeping well. Now recalls that before her stroke she remembers having a bull's eye rash and was seen with severe headaches in [place], [place] - was found to have a [...] root canal and was [facility] [facility] for MRI which was negative but non-contrasted. [...] history goes back to January [address] [facility] where she had persisting headaches and slurred speech followed by lower extremity weakness. This took a few months to resolve and she is back to her normal state of being but some point in time during her her next she was seen by Dr. Humera Hyde in [place] as well and was found to have [...] which included preparing to see the patient, eovb-tc-mpqm patient care, completing clinical documentation, performing a medically appropriate examination, counseling and educating the patient/family/caregiver, ordering medications, tests, or p rocedures, independently interpreting results (not separately reported), communicating results to the patient/family/caregiver, and care coordination (not separately reported). Kristofer Calix MD, CPE Hematology and Oncology Services Provided at: [place], [place] Scribe Attestation: This note was scribed [...] under my direction. CC: MD Wilton Day, [address] [place] [address] Humaira Gaviria MD [address] [place] [id number] MD Cosmo Kingston MD Michael Blank, MD documented in this encounterTrihealth01-29-2025 NoteHNO ID: [id number] Author: KRISTOFER CALIX MD Service: ? Author Type: Physician Type: Progress Notes Filed: 05/29/2024 09:13 Note Text: NAME: Sanna Rendon CLINIC NO.: [id number] DATE OF SERVICE: May 28, 2024 [facility] Some elements in this clinic note that [...] later in 2018. These were found in [place], [place]. I don't have access to these [...] a target-like rash shortly before presenting to [facility] in 2016 with headaches and [...] soon. When she had a stroke in [place], she had symptoms up to a month [...] breast feeding. Updated Visit, (more content not included)...[facility] 05-14-2024 Telephone encounter Note* Telephone Encounter - Rachael Johnson RN - 05/14/2024 10:15 AM EST Pt called to inform she had a miscarriage, Sunday (05/10/24) Asking if any additional blood work was needed from out standpoint. Pt aware we will be checking her CBC for any signs of anemia and her iron studies for deficiency. 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 She denies any further questions needs or concerns at this time. MARSHA Rushk: YANET [facility]01-15-2025 Miscellaneous Notes* Telephone Encounter - Rachael Johnson RN - 05/14/2024 10:15 AM EST Pt called to inform she had a miscarriage, Sunday (05/10/24) Asking if any additional blood work was needed from out standpoint. Pt aware we will be checking her CBC for any signs of anemia and her iron studies for deficiency. 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 She denies any further questions needs or concerns at this time. Rachael Johnson RN Fely: FYI documented in this encounterTrihealth01-15-2025 Telephone encounter Note * Telephone Encounter - [...] follow up appointment. 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 Coagulation defect, unspecified ([facility]) 02/05/2019 Cold intolerance 11/15/2023 Deficiency of [...] Less than 8 weeks gestation of 06/05/2019 assisted (current) use of 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/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 02/05/2019 Migraine without aura and without status migrainosus, not intractable ([facility]) 09/12/2017 Morbid obesity ([facility]) 11/15/2023 Muscle fasciculation 08/19/2021 Nasal polyps [...] infections 01/16/2020 Pre-diabetes 11/15/2023 Primary hypercoagulable state ([facility]) 08/01/2022 Pruritus, unspecified 01/02/2020 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[facility]) 06/12/2023 Raised antibody titer 09/25/2017 Right lower quadrant pain 11/15/2023 Right otitis externa 11/15/2023 Salivary gland swelling 11/15/2023 Single live 01/15/2020 Snoring 11/15/2023 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) 12/30/2019 Suspected severe acute respiratory syndrome coronavirus 2 (SARS-CoV-2) infection 06/12/2023 SVT (supraventricular tachycardia) ([facility]) 08/26/2019 Syncope and collapse 06/03/2018 Other bacterial infections of unspecified site 06/27/2019 Thrombocytopenia, unspecified ([facility]) 11/20/2019 Hypoglycemia 06/12/2023 Unspecified condition associated [...] Antiphospholipid syndrome (CMS/HCC) Gestational diabetes Heartburn Hypothyroid ([facility]/HCC) Stroke ([facility]) HISTORY PAST MEDICAL HISTORY SOCIAL HISTORY Past Medical History: Diagnosis Date AMA (advanced maternal age) multigravida 35+ Anemia Antiphospholipid syndrome (CMS/HCC) Gestational diabetes Heartburn Hypothyroid ([facility]/HCC) Stroke (CMS/[facility]) Social History Tobacco Use Smoking status: [...] drainage of cyst WISDOM TOOTH EXTRACTION 2007 [place] teeth REVIEW OF SYSTEMS Review of Systems: [...] nursing note reviewed. Exam conducted with a investigative reporter present. 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 Coagulation defect, unspecified ([facility]) 02/05/2019 Cold intolerance 11/15/2023 Deficiency of [...] than 8 weeks gestation of 06/05/2019 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 02/05/2019 Migraine without aura and without status migrainosus, not intractable ([facility]) 09/12/2017 Morbid obesity ([facility]) 11/15/2023 Muscle fasciculation 08/19/2021 Nasal polyps [...] infections 01/16/2020 Pre-diabetes 11/15/2023 Primary hypercoagulable state ([facility]) 08/01/2022 Pruritus, unspecified 01/02/2020 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[facility]) 06/12/2023 Raised antibody titer 09/25/2017 Right lower quadrant pain 11/15/2023 Right otitis externa 11/15/2023 Salivary gland swelling 11/15/2023 Single live 01/15/2020 Snoring 11/15/2023 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) 12/30/2019 Suspected severe acute respiratory syndrome coronavirus 2 (SARS-CoV-2) infection 06/12/2023 SVT (supraventricular tachycardia) ([facility]) 08/26/2019 Syncope and collapse 06/03/2018 Other bacterial infections of unspecified site 06/27/2019 Thrombocytopenia, unspecified ([facility]) 11/20/2019 Hypoglycemia 06/12/2023 Unspecified condition associated with female genital organs and menstrual cycle 05/09/2019 Unspecified ovarian cyst, right side 02/06/2019 Urinary tract infection 10/16/2019 Referred otalgia of right ear 11/19/2023 LPRD (laryngopharyngeal reflux disease) 11/19/2023 Resolved Ambulatory Problems Diagnosis Date Noted No Resolved Ambulatory Problems Past Medical History: Diagnosis Date AMA (advanced maternal age) multigravida 35+ Anemia Antiphospholipid syndrome ([facility]) Gestational diabetes Heartburn Hypothyroid ([facility]) Stroke ([facility]) Family History Problem Relation Name Age [...] drainage of cyst WISDOM TOOTH EXTRACTION 2007 [place] teeth Allergies Allergen Reactions Ciprofloxacin GI intolerance [...] Rapid drug screen, urine; Future Hypothyroidism (acquired) ([facility]) - TSH Low vitamin D level - [...] Ariane Joseph LPN documented in this encounterSaint Joseph Hospital [id number] Telephone encounter Note* Telephone Encounter - Rachael Johnson RN - 02/28/2024 8:21 AM EDT Pt aware and agreeable to plan of care. Pt denies any further questions, needs or concerns at this time. Appt verified for lab/follow up Rachael Johnson RN [facility]10-31-2024 Miscellaneous Notes* Telephone Encounter - Rachael Johnson [...] advise Rachael Johnson RN documented in this encounterTrihealth10-30-2024 Telephone encounter Note * Telephone Encounter - Kristofer Calix MD - 02/27/2024 4:36 PM EDT She can take the iron with prenatals. We should Johnathon labs as scheduled. [facility]10-30-2024 Telephone encounter Note* Telephone Encounter - Rachael Johnson RN - 02/27/2024 9:41 AM EDT Pt 4 weeks and inquiring if she should have March's lab work completed now or wait until scheduled appt. Pt last labs completed 01/02/24. Pt also would like to know if it is okay to take with iron? Fely: Please advise Rachael Johnson RN [facility]10-08-2024 Hospital Discharge instructions Patient Education 02/05/2024 14:07:02 [...] condition. Follow these instructions at home: Take wkhk-tzd-dpowfop and prescription medicines only as told by [...] and water are not available, use hand route sales representative. Avoid contact with people who have cold [...] it is easier to cough up. Take lwve-afp-xmysiuw and prescription medicines only as told by [...] provider. Document Revised: 07/27/2022 Document Reviewed: 08/17/2021 [employer] Patient Education 2023 [employer]edExchange. Follow Up Care 02/04/2024 08:47:42 With:PRAVEEN RESENDEZ FAAFP, Penelope Tony, CHRIS, PED Address: [address] [place] [address] [place] [address]- When:Within 3 Month(s) [facility] 10-08-2024 NotePatient Education Pulmonary Medicine [...] Follow these instructions at home: ? Take ltcc-pdu-djjskgg and prescription medicines only as told by [...] and water are not available, use hand route sales representative. ? Avoid contact with people who have [...] is easier to cough up. ? Take nzan-clh-ahzpkya and (more content not included)...[facility]10-05-2024 Hospital Discharge instructions Follow Up Care 02/02/2024 11:19:56 With:Anni Bernstein MD, [facility] Address: [address] [place] [phone] When: only if needed [facility] [id number] Miscellaneous Notes* Telephone Encounter - Valeri Yeung [...] FE results. Thank you documented in this encounterTrihealth09-09-2024 Telephone encounter Note * Telephone Encounter - Valeri Yeung RN - 01/07/2024 8:29 AM EDT No need for IV iron per CC'd chart from Dr. Calix. Attempt to call pt to notify. Left detailed message on, along with call back number on voicemail. Valeri Yeung RN [facility]09-04-2024 Telephone encounter Note* Telephone Encounter - Marleen Mcdonald - 01/02/2024 2:[address] Luna is requesting Triage to call Sanna with her FE results. Thank you [facility]09-04-2024 Instructions* Patient Instructions* Nathaly Florence - 01/02/2024 2:08 PM EDT Triage to call iron results Continue Lovenox - patient prefers 40 mg (rather than rec 80mg) Encouraged her to reconsider Take B12 supplement in the form of a sublingual tablet RTC in 3 months Labs same day Vitamin D, TSH, Calcium with CMP documented in this encounterTrihealth09-04-2024 Nurse Note* Serina Horton MA - 01/02/2024 [...] MRI but was negative. Serina Dawson MA [facility]09-04-2024 Nurse Note* Serina Dawson MA - 01/02/2024 [...] negative. Serina Dawson MA documented in this encounterTrihealth09-04-2024 History of Present illness Narrative* Kristofer Calix MD - 01/02/2024 1:45 PM EDT Images from the original note were not included. NAME: Sanna Rendon CLINIC NO.: [id number] DATE OF SERVICE: January 02, 2024 ([place]) [...] later in 2018. These were found in [place], [place]. I don't have access to these [...] a target-like rash shortly before presenting to [facility] in 2016 with headaches and [...] Monge soon. When [place] hada stroke in [place], she had symptoms up to a month before: uncontrollable headache, BP was elevated, knee stiffness, and blurry vision. Right facial drooping [facility] to [facility]. Updated Visit, [...] stayed on Lovenox Hgb 13.1 @ [facility] Recommended ER if persisting bleeding but she [...] and at age 69. Both lived in [place], [place] - but she was adopted. She was not able to see ID in October and will be seeing Dr. Baugh next week. Also will have her see Dr. Hamlin for her clotting disorder and make any other recommendations to optimize her treatment. Updated Visit, October 08, 2020: Telephone only Received call from pt stating she was seen in [facility] for numbness in her chest, throat, and extremities, and sob which has been worsening over the last week. We arranged a telephone visit for her toreview questions with me. Sanna Rendon is a 34 year old female seen for Hypercoagulable state and recent concerns and symptoms that required her to be seen at [facility]. She went to the ER with Gradual worsening of breathing after progressive tingling of fingers and legs. She currently remains very fatigued even though she is sleeping well. Now recalls that before her stroke she remembers having a bull's eye rash and was seen with severe headaches in [place], [place] - was found to have a [...] root canal and was sent to [facility] for MRI which was negative but non-contrasted. [...] history goes back to January [address] [facility] where she had persisting headaches and slurred speech followed by lower extremity weakness. This took a few months to resolve and she is back to her normal state of being but some point in time during her her next she was seen by Dr. Humera Hyde in [place] as well and was found to have [...] which included preparing to see the patient, htoy-nj-ludu patient care, completing clinical documentation, performing a medically appropriate examination, counseling and educating the patient/family/caregiver, ordering medications, tests, or p rocedures, independently interpreting results (not separately reported), communicating results to the patient/family/caregiver, and care coordination (not separately reported). Kristofer Calix MD, CPE Hematology and Oncology Services [facility] Attestation: This note was scribed by Nathaly [...] under my direction. CC: MD Wilton Day, [address] [place] [address] Humaira Gaviria MD [address] [place] [address] MD Cosmo Kingston MD Michael Blank, MD documented in this encounterTrihealth08-19-2024 Telephone encounter Note * Telephone Encounter - Rachael Johnson RN - 12/17/2023 12:57 PM EDT Pt updated and will follow up with PCP. Denies further questions, needs or concerns at this time for our provider. Rachael Johnson RN [facility]08-19-2024 Miscellaneous Notes* Telephone Encounter - Rachael Johnson [...] to IV Iron 11/29/23? documented in this encounterTrihealth08-19-2024 Telephone encounter Note * Telephone Encounter - Kristofer Calix MD - 12/17/2023 12:52 PM EDT No - sounds like she has some infectious process going on - would rec PCP. [facility]08-19-2024 Telephone encounter Note* Telephone Encounter - Rachael [...] possible delayed reaction to IV Iron 11/29/23? [address]01-2024 History of Present illness Narrative* Becki Gutierrez RN - 11/29/2023 2:01 PM EDT Y Y documented in this encounterTrihealth08-01-2024 Telephone encounter Note * Telephone Encounter - Rachael Johnson RN - 11/29/2023 12:45 PM EDT MARSHA Connell, treatment aware of changes. [facility]08-01-2024 Miscellaneous Notes* Telephone Encounter - Rachael Johnson [...] a different iron formulation. documented in this encounterTrihealth08-01-2024 Telephone encounter Note * Telephone Encounter - Rachael Johnson RN - 11/29/2023 12:41 PM EDT Spoke with pt. She will obtain Pepcid OTC from our retail pharmacy on arrival to take (1) 20 mg tablet. She is aware and agreeable to IV steroid for infusion as well. Rachael Johnson RN [facility]08-01-2024 Telephone encounter Note* Telephone Encounter - Raissa Aly RPh - 11/29/2023 12:40 PM EDT A one time dose of dexamethasone is safe when . I added 8mg to the plan for your review. Please adjust dose if necessary. Thanks, Raissa Aly RPh [facility] Work Phone: [phone] Telephone encounter Note* Telephone Encounter - Raissa Aly RPh - 11/29/2023 12:34 PM EDT Famotidine is safe when . Do we want to administer the venofer slower? What rate? Thanks, Raissa Aly RPh [facility]08-01-2024 Telephone encounter Note* Telephone Encounter - Rachael Johnson RN - 11/29/2023 11:56 AM EDT Called and discussed with pt. She is and cannot take Benadryl. She is reluctant to take Pepcid. Attempted to call retail, infusion pharmacy and [facility], no answer, to ask safety of pepcid in . Pharm/Fely: please advise Rachael Johnson RN [facility]08-01-2024 Telephone encounter Note* Telephone Encounter - Kristofer [...] have to choose a different iron formulation. [facility]07-18-2024 History of Present illness Narrative* Alison Linares RN - 11/15/2023 1:42 PM EDT Pt reports having nausea and lightheadedness this morning. She has seen her pcp regarding these symptoms and is being worked up to figure out the cause. documented in this encounterTrihealth07-18-2024 Telephone encounter Note * Telephone Encounter - Evelyn Sanabria - 11/15/2023 9:19 AM EDT 1st report of treatment-Non oncology regimen (Venofer) Patient holds Medicaid coverage and there isno available FA at this time. [facility]07-18-2024 Miscellaneous Notes* Telephone Encounter - Evelyn Sanabria - 11/15/2023 9:19 AM EDT 1st report of treatment-Non oncology regimen (Venofer) Patient holds Medicaid coverage and there isno available FA at this time. documented in this encounterTrihealth07-12-2024 Hospital Discharge instructions Patient Education 11/09/2023 15:56:11 [...] your hypoglycemia. Where to find more information [place] [employer]: www.diabetes.org National [address] of Diabetes and Digestive and Kidney Diseases: [...] provider. Document Revised: 03/17/2021 Document Reviewed: 03/17/2021 [employer] Patient Education 2022 IMedExchange. 11/09/2023 15:56:06 Prediabetes Prediabetes Prediabetes is when [...] hard liquor (44 mL). General instructions Take fvet-ncf-zfsyvnl and prescription medicines only as told by [...] is important. Where to find more information [place] [employer]: www.diabetes.org Academy of Nutrition and Dietetics: www.eatright.org [place] [employer]: www.heart.org Contact a health care [...] provider. Document Revised: 07/15/2020 Document Reviewed: 07/15/2020 [employer]ed Patient Education 2022 [employer] Inc. 11/09/2023 15:56:02 Palpitations Palpitations Palpitations are feelings [...] ask your health careprovider. General instructions Take mjvk-bdd-bobcxfd and prescription medicines only as told by [...] your local emergency services (911 in the .S.). Do not drive yourself to the hospital. [...] provider. Document Revised: 09/07/2021 Document Reviewed: 09/07/2021 [employer] Patient Education 2022 IMedExchange. 11/09/2023 15:55:58 Fatigue Fatigue If you have [...] Follow these instructions at home: Medicines Take lejh-gri-jxnhura and prescription medicines only as told by [...] the National Suicide Prevention Lifeline at or 429. This is open 24 hours a day. Text the Crisis Text Line at 429805. Summary If you have fatigue, you feel [...] provider. Document Revised: 02/06/2022 Document Reviewed: 02/06/2022 [employer] Patient Education 2022 IMedExchange. Follow Up Care 11/08/2023 11:31:43 With:PRAVEEN RESENDEZ FAAFP, CHRIS Perez, CECIL Address: [address], [place] [address]- When: Unknown [facility] 07-12-2024 NotePatient Education Emergency Medicine [...] health care provider. General instructions ? Take xkrt-abk-qptsweq and prescription medicines only as told by [...] provider. Document Revised: 09/07/2021 Document Reviewed: 09/07/2021 [employer] Patient Education ? 2022 [employer] Inc. Endocrinology Preventing Hypoglycemia Hypoglycemia occurs when [...] Mild hypoglycemia may not (more content not included)...[facility]07-12-2024 History of Present illness Narrative* Tamiko Krueger LSW - 11/09/2023 9:27 AM EDT Patient appears on the [facility] First Time Treatment List for a non-oncology treatment. No psychosocial assessment is indicated. KRISTOPHER Huerta documented in this encounterTrihealth07-09-2024 Telephone encounter Note * Telephone Encounter - Rachael Johnson RN - 11/06/2023 8:24 AM EDT Pt informed of [employer]'s message and denies any questions, needs or concerns at this time. She will call PCP for additional workup of palpitations, should the IV iron not help, or they worsen. Discussed reasons for immediate evaluation; chest pain, shortness of breath, lightheadedness, dizziness, etc. Appointments verified. Rachael Johnson RN [facility]07-09-2024 Miscellaneous Notes* Telephone Encounter - Rachael Johnson [...] iron infusions will get you feeling better. Sumit, Dr. Middleton * Telephone Encounter - Roberta Haskins - [...] MD Sent: 11/05/2023 11:33 AM EDT To: [facility] Triage Pool; [facility] Clerical Pool Perry Leung - looks like you need Iron again. Dr. Middleton Cancel her virtual set for 11/05 and 11/19 - infuse 3 doses weekly iron and then see her in 8 weeks inperson - labs same day. Thanks! documented in this encounterTrihealth07-08-2024 Telephone encounter Note * Telephone Encounter - [...] get you feeling better. Dr. Kane Arana [facility]07-08-2024 Telephone encounter Note* Telephone Encounter - Roberta [...] is on a blood thinner. Roberta Haskins [facility]07-08-2024 Telephone encounter Note* Telephone Encounter - Roberta Haskins - 11/05/2023 12:47 PM EDT Appointment tomorrow cancelled. Andres tried calling her this morning and was unable to get a hold ofher. Will keep trying patient to schedule for Iron. Roberta Haskins [facility]07-08-2024 Telephone encounter Note* Telephone Encounter - Roberta Haskins - 11/05/2023 12:47 PM EDT ----- Message from Rachael Johnson RN sent at 11/05/2023 11:53 AM EDT ----- ----- Message ----- From: Kristofer Calix MD Sent: 11/05/2023 11:33 AM EDT To: [facility] Triage Pool; [facility] Clerical Pool Perry Leung - looks like you need Iron again. Dr. Middleton Cancel her virtual set for 11/05 and 11/19 - infuse 3 doses weekly iron and then see her in 8 weeks inperson - labs same day. Thanks! [facility]06-25-2024 Hospital Discharge instructions Patient Education 10/23/2023 17:12:54 [...] specializes in ear, nose, and throat disorders (tumor registrar, or ENT) for more tests and treatment. [...] (rhinoplasty). Follow these instructions at home: Take uhou-yuv-jktreox and prescription medicines only as told by [...] specializes in ear, nose, and throat disorders (tumor registrar, or ENT) for more tests and treatment. This information is not intended to replace advice given to you by your health care provider. Make sure you discuss any questions you have with your health care provider. Document Revised: 12/12/2021 Document Reviewed: 12/12/2021 Kliqed Patient Education 2022 IMedExchange. 10/23/2023 17:12:52 Nasal Polyps Nasal Polyps Nasal [...] instructions at home: Medicines Take or use tugu-uej-lboraln and prescription medicines only as told by [...] provider. Document Revised: 04/05/2022 Document Reviewed: 04/05/2022 Kliqed Patient Education 2022 IMedExchange. 10/23/2023 17:12:52 Nasal Polypectomy Nasal Polypectomy Nasal [...] including vitamins, herbs, eye drops, creams, and yibh-mbr-goydpom medicines. Any problems you or family members [...] provider tells you to take them. Taking breo-cjm-midlysi medicines, vitamins, herbs, and supplements. General instructions [...] provider. Document Revised: 04/05/2022 Document Reviewed: 04/05/2022 Kliqed Patient Education 2022 IMedExchange. 10/23/2023 17:12:46 BMI for Adults BMI for [...] numbers. This can be done either in [place] ([place] or metric measurements. Note that charts and online BMI calculators are available to help you find your BMI quickly and easily without having to do these calculations yourself. To calculate your BMI in Palestinian ([place] measurements: 1.Measure your weight in pounds [...] Centers for Disease Control and Prevention: www.cdc.gov [place] Heart Association: www.heart.org National Heart, Lung, and Blood [address]: www.nhlbi.nih.gov Summary Body mass index (BMI) is a number that is calculated from a person's weight and height. BMI may help estimate how much of a person's weight is composed of fat. BMI can help identify thosewho may be at higher risk for certain medical problems. BMI can be measured using Palestinian measurements or metric measurements. BMI charts are used to identify whether you are underweight, normal weight, overweight, or obese. This information is not intended to replace advice given to you by your health care provider. Make sure you discuss any questions you have with your health care provider. Document Revised: 01/07/2020 Document Reviewed: 11/14/2019 Kliqed Patient Education 2022 IMedExchange. Follow Up Care 10/23/2023 08:49:41 With:Lourdes Urrutia Address: [address] [place] [address] [place], [place] [address]- When: only if needed [facility] 05-31-2024 Hospital Discharge instructions Patient [...] Follow these instructions at home: Medicines Take kdge-kqm-hwkfipv and prescription medicines only as told by [...] Watch your condition for any changes. Take ntoa-xii-qfyhwlm and prescription medicines only as told by [...] provider. Document Revised: 06/04/2020 Document Reviewed: 08/25/2019 Kliqed Patient Education 2022 IMedExchange. Follow Up Care 09/28/2023 18:22:59 With:Penelope CASAS Address: [address] [place] [address] Business (1) When:Within 3 Day(s) [facility]05-31-2024 Hospital Discharge instructions Patient Education 09/28/2023 18:24:44 [...] numbers. This can be done either in [place] ([place] or metric measurements. Note that charts and online BMI calculators are available to help you find your BMI quickly and easily without having to do these calculations yourself. To calculate your BMI in [place] ([place] measurements: 1.Measure your weight in pounds [...] Centers for Disease Control and Prevention: www.cdc.gov [place] Heart Association: www.heart.org National Heart, Lung, and Blood [address]: www.nhlbi.nih.gov Summary Body mass index (BMI) is a number that is calculated from a person's weight and height. BMI may help estimate how much of a person's weight is composed of fat. BMI can help identify thosewho may be at higher risk for certain medical problems. BMI can be measured using Palestinian measurements or metric measurements. BMI charts are used to identify whether you are underweight, normal weight, overweight, or obese. This information is not intended to replace advice given to you by your health care provider. Make sure you discuss any questions you have with your health care provider. Document Revised: 01/07/2020 Document Reviewed: 11/14/2019 Kliqed Patient Education 2022 IMedExchange. 09/28/2023 18:24:42 Hypertension, Adult, Nfku-ld-Mbrh Hypertension, Adult Hypertension is another name for [...] doctor. Keep all follow-up visits. Medicines Take bdup-mrv-ifqtzbz and prescription medicines only as told by [...] provider. Document Revised: 02/02/2022 Document Reviewed: 02/02/2022 Kliqed Patient Education 2022 IMedExchange. 09/28/2023 18:24:32 Abdominal Pain, Adult, Bwzo-xd-Qmjj Abdominal Pain, Adult Many things can cause belly (abdominal) pain. Most times, belly pain is not dangerous. Many cases of belly pain can be watched and treated at home. Sometimes, though, belly pain is serious. Your doctor will try to find the cause of your belly pain. Follow these instructions at home: Medicines Take rine-oej-ukxnjmh and prescription medicines only as told by [...] your belly pain for any changes. Take leop-soz-dudvwvi and prescription medicines only as told by [...] provider. Document Revised: 08/25/2019 Document Reviewed: 08/25/2019 Kliqed Patient Education 2022 K[employer]ed Inc. Follow Up Care 09/28/2023 16:11:11 With:Emergency room Address: When: only if needed Comments:Patient was instructed to contact emergency room for any worsening abdominal pain, concerns, or complications. [facility] 05-31-2024 Evaluation + Plan noteExtracted [...] 12:40:00 PM Scheduled Provider:Penelope CASAS DO, FAAFP Location:[facility] Appointment Type: Open Future Scheduled Tests Laboratory* HgbA1c 08/03/23 [facility]05-30-2024 Telephone encounter Note* Telephone Encounter - Roberta Haskins - 09/27/2023 4:38 PM EDT Attempt has been made x2 to reschedule patient. She did not have labs drawn. Roberta Haskins [facility]05-30-2024 Miscellaneous Notes* Telephone Encounter - Roberta Haskins - 09/27/2023 4:38 PM EDT Attempt has been made x2 to reschedule patient. She did not have labs drawn. Roberta Haskins documented in this encounterTrihealth05-29-2024 History of Present illness Narrative* Kristofer Calix MD - 09/26/2023 9:11 AM EDT Did not have labs done to prep for this visit - reschedule. Kristofer Calix MD documented in this encounterTrihealth04-05-2024 Hospital Discharge instructions Patient Education 08/03/2023 12:18:51 [...] your health care provider or diet and military logistics specialist (dietitian). This may include: ?Eating fewer [...] provider. Document Revised: 06/12/2021 Document Reviewed: 06/12/2021 Kliqed Patient Education 2022 IMedExchange. Follow Up Care 02/15/2023 10:07:52 With:PRAVEEN RESENDEZ FAAFP, Penelope Tony, CHRIS, PED Address: [address] [place] [address], [place] [place] [address]- When:Within 4 Month(s) [facility] 04-05-2024 Evaluation + Plan note Future Scheduled Tests Laboratory* HgbA1c 08/03/23 Radiology* CT Soft Tissue Neck w/ Contrast 11/12/23 [facility] 02-22-2024 Hospital Discharge instructions Patient [...] or if there is an kennedy for [employer]. Most glucose meters store a record of [...] mayhave. Where to find more information The [place] Diabetes Association: www.diabetes.org The Association of Diabetes [...] provider. Document Revised: 01/12/2021 Document Reviewed: 01/12/2021 Kliqed Patient Education 2022 IMedExchange. 06/21/2023 06:07:34 Preventing Iron Deficiency Anemia, Adult [...] iron. Foods high in vitamin C include: ?Greene fruits, such as tai, oranges, and grapefruits. [...] iron supplement is right for you. Take owob-dfd-jyoegpa and prescription medicines only as told by your health care provider. Keep all follow-up visits. Where to find more information Learn more about preventing iron deficiency from: National Heart, Lung, and Blood [address]: www.nhlbi.nih.gov [place] Society of Hematology: www.hematology.org Contact a health [...] provider. Document Revised: 05/24/2022 Document Reviewed: 05/24/2022 Kliqed Patient Education 2022 IMedExchange. 06/21/2023 06:07:28 BMI for Adults BMI for [...] numbers. This can be done either in [place] ([place] or metric measurements. Note that charts and online BMI calculators are available to help you find your BMI quickly and easily without having to do these calculations yourself. To calculate your BMI in Palestinian ([place] measurements: 1.Measure your weight in pounds [...] Centers for Disease Control and Prevention: www.cdc.gov [place] Heart Association: www.heart.org National Heart, Lung, and Blood [address]: www.nhlbi.nih.gov Summary Body mass index (BMI) is a number that is calculated from a person's weight and height. BMI may help estimate how much of a person's weight is composed of fat. BMI can help identify thosewho may be at higher risk for certain medical problems. BMI can be measured using Palestinian measurements or metric measurements. BMI charts are used to identify whether you are underweight, normal weight, overweight, or obese. This information is not intended to replace advice given to you by your health care provider. Make sure you discuss any questions you have with your health care provider. Document Revised: 01/07/2020 Document Reviewed: 11/14/2019 Kliqed Patient Education 2022 IMedExchange. Follow Up Care 06/19/2023 13:39:56 With:PRAVEEN RESENDEZ FAAFP, CHRIS Perez, PED Address: [address], [place] [address]- When: Unknown [facility] 02-20-2024 Miscellaneous Notes* Telephone Encounter [...] lab results Roberta Haskins documented in this encounterTrihealth02-16-2024 Instructions* Patient Instructions* Nathaly Carney - 06/15/2023 [...] TSH, Calcium with CMP documented in this encounterTrihealth02-16-2024 Nurse Note* Serina Horton MA - 06/15/2023 [...] exercise. Serina Dawson MA documented in this encounterTrihealth02-16-2024 History of Present illness Narrative* Kristofer Calix MD - 06/15/2023 2:00 PM EST Images from the original note were not included. NAME: Sanna Rendon CLINIC NO.: [id number] DATE OF SERVICE: June 15, 2023 (Levon) Some elements in this clinic note that are critical to medical decision making have been carefully reviewed and included from a prior clinic note dated: May 31, 2023 (Brendaelaina) Additional Clinicians involved in Sanna Rendon's care: Drs. Herrmann, Jorge Monge, Humaira Gaviria, CC: hypercoag state. ASSESSMENT: 37 year old woman 25 weeks presents with a prior history of CVA in 2016 and anantiphospholipid antibody that was identified much later in 2018. These were found in [place], [place]. I don't have access to these [...] a target-like rash shortly before presenting to [facility] in 2016 with headaches and [...] Monge soon. When she hada stoke in [place], she had symptoms up to a month [...] stayed on Lovenox Hgb 13.1 @ [facility] Recommended ER if persisting bleeding but she [...] and at age 69. Both lived in [facility] but she was adopted. She was not able to see ID in October and will be seeing Dr. Baugh next week. Also will have her see Dr. Hamlin for her clotting disorder and make any other recommendations to optimize her treatment. Updated Visit, October 08, 2020: Telephone only Received call from pt stating she was seen in [facility] for numbness in her chest, throat, and extremities, and sob which has been worsening over the last week. We arranged a telephone visit for her domingoevkimberlyw questions with me. Sanna Rendon is a 34 year old female seen for Hypercoagulable state and recent concerns and symptoms that required her to be seen at [facility]. She went to the ER with Gradual worsening of breathing after progressive tingling of fingers and legs. She currently remains very fatigued even though she is sleeping well. Now recalls that before her stroke she remembers having a bull's eye rash and was seen with severe headaches in [facility] was found to have a stroke [...] root canal and was sent to [facility] for MRI which was negative but non-contrasted. [...] history goes back to January [address] [facility] where she had persisting headaches and slurred speech followed by lower extremity weakness. This took a few months to resolve and she is back to her normal state of being but some point in time during her her next she was seen by Dr. Humera Hyde in [place] as well and was found to have [...] which included preparing to see the patient, fgre-lh-hrmk patient care, completing clinical documentation, performing a medically appropriate examination, counseling and educating the patient/family/caregiver, ordering medications, tests, or p rocedures, independently interpreting results (not separately reported), communicating results to the patient/family/caregiver, and care coordination (not separately reported). Kristofer Calix MD, CPE Hematology and Oncology Services Provided at: [place], [place] Scribe Attestation: This note was scribed [...] direction. CC: MD Chalino Dayy Spencer Herrmann, [address] [place] [address] Humaira Gaviria MD [address] [place] [id number] MD Cosmo Kingston MD Michael Blank, MD documented in this encounterTrihealth02-12-2024 Miscellaneous Notes* Telephone Encounter - Ebony Redding Ma - 06/11/2023 10:43 AM EST Labs for appointment on 06/15. Ebony Redding Ma documented in this encounterTrihealth02-12-2024 Miscellaneous Notes* Telephone Encounter - Nicol Avila [...] since she was last seen by him. [facility] [address], [place], Please fax records Andres, Please follow up on this appt. Thank you documented in this encounterTrihealth02-01-2024 History of Present illness Narrative* Kristofer Calix MD - 05/31/2023 4:30 PM EST Images from the original note were not included. NAME: Sanna Rendon CLINIC NO.: [id number] DATE OF SERVICE: May 31, 2023 (Levon) Some elements in this clinic note that are critical to medical decision making have been carefully reviewed and included from a prior clinic note dated: March 19, 2023 (Levon) Additional Clinicians involved in Sanna Rendon's care: Drs. Herrmann, Jroge Monge, Humaira Gaviria, VIRTUAL VISIT PROGRESS NOTE This is a virtual visit using [employer]oom Video Visit. It required patient- provider interaction for the medical decision making as documented below. I have communicated my name and active licensure. The patient's identity and physical location wereverified at the time of this visit. Either the patient or their legal reimbursement representative has been informed of the risks and benefits of -- and alternatives to -- treatment through a remote evaluation andconsents to proceed with the evaluation remotely. CC: hypercoag state. ASSESSMENT: 37 year old woman 25 weeks presents with a prior history of CVA in 2016 and anantiphospholipid antibody that was identified much later in 2018. These were found in [place], [place]. I don't have access to these [...] a target-like rash shortly before presenting to [facility] in 2016 with headaches and [...] stayed on Lovenox Hgb 13.1 @ [facility] Recommended ER if persisting bleeding but she [...] and at age 69. Both lived in [facility] but she was adopted. She was not able to see ID in October and will be seeing Dr. Baugh next week. Also will have her see Dr. Hamlin for her clotting disorder and make any other recommendations to optimize her treatment. Updated Visit, October 08, 2020: Telephone only Received call from pt stating she was seen in [facility] for numbness in her chest, throat, and extremities, and sob which has been worsening over the last week. We arranged a telephone visit for her chanw questions with me. Sanna Rendon is a 34 year old female seen for Hypercoagulable state and recent concerns and symptoms that required her to be seen at [facility]. She went to the ER with Gradual worsening of breathing after progressive tingling of fingers and legs. She currently remains very fatigued even though she is sleeping well. Now recalls that before her stroke she remembers having a bull's eye rash and was seen with severe headaches in [facility] was found to have a stroke [...] root canal and was sent to [facility] for MRI which was negative but non-contrasted. [...] history goes back to January [address] [facility] where she had persisting headaches and slurred speech followed by lower extremity weakness. This took a few months to resolve and she is back to her normal state of being but some point in time during her her next she was seen by Dr. Humera Hyde in [place] as well and was found to have [...] CPE Hematology and Oncology Services Provided at: [place], [place] CC: MD Wilton Day, [address] [place] [address] Humaira Gaviria MD [address] [facility] [address] MD Cosmo Kingston MD Michael Blank, MD documented in this encounterTrihealth02-01-2024 Instructions* Patient Instructions* Kristofer Calix MD - [...] TSH, Calcium with CMP documented in this encounterTrihealth01-26-2024 Hospital Discharge instructions Patient Education 05/25/2023 12:02:10 [...] your ears completely after. General instructions Take iypm-gik-bnabjzt and prescription medicines only as told by [...] provider. Document Revised: 06/27/2021 Document Reviewed: 06/27/2021 Kliqed Patient Education 2022 [employer]ed Inc. 05/25/2023 12:02:06 Dyshidrotic Eczema Dyshidrotic Eczema [...] care provider who specializes in skin conditions (concrete block plant supervisor) tohelp diagnose and treat this condition. How [...] locks in moisture. Medicines Take and apply wdtw-bvg-vathpto and prescription medicines only as told by [...] provider. Document Revised: 01/24/2021 Document Reviewed: 01/24/2021 Kliqed Patient Education 2022 IMedExchange. 05/25/2023 12:02:02 Allergies, Adult, Cunl-vm-Ihnq Allergies, Adult An allergy means that your [...] instructions at home: Medicines Take or apply mtpd-gjr-bsllwwp and prescription medicines only as told by [...] to the hospital. Summary Take or apply muvd-ayc-epuhexj and prescription medicines only as told by [...] provider. Document Revised: 02/25/2020 Document Reviewed: 02/25/2020 Kliqed Patient Education 2022 IMedExchange. Follow Up Care 05/21/2023 12:21:27 With:PRAVEEN RESENDEZ FAAFP, CHRIS Perez, PED Address: [address] [place] [address] [place] [address]- When:Within 2 Month(s) [facility] 11-20-2023 History of Present illness Narrative* Kristofer Calix MD - 03/19/2023 4:45 PM EST Images from the original note were not included. NAME: Sanna Rendon CLINIC NO.: [id number] DATE OF SERVICE: March 19, 2023 (Levon) [...] visit. Either the patient or their legal reimbursement representative has been informed of the risks and benefits of -- and alternatives to -- treatment through a remote evaluation andconsents to proceed with the evaluation remotely. CC: hypercoag state. ASSESSMENT: 37 year old woman 25 weeks presents with a prior history of CVA in 2016 and anantiphospholipid antibody that was identified much later in 2018. These were found in [place], [place]. I don't have access to these [...] a target-like rash shortly before presenting to [facility] in 2016 with headaches and [...] stayed on Lovenox Hgb 13.1 @ [facility] Recommended ER if persisting bleeding but she [...] and at age 69. Both lived in [place], [place] - but she was adopted. She was not able to see ID in October and will be seeing Dr. Baugh next week. Also will have her see Dr. Hamlin for her clotting disorder and make any other recommendations to optimize her treatment. Updated Visit, October 08, 2020: Telephone only Received call from pt stating she was seen in [facility] for numbness in her chest, throat, and extremities, and sob which has been worsening over the last week. We arranged a telephone visit for her toreview questions with me. Sanna Rendon is a 34 year old female seen for Hypercoagulable state and recent concerns and symptoms that required her to be seen at [facility]. She went to the ER with Gradual worsening of breathing after progressive tingling of fingers and legs. She currently remains very fatigued even though she is sleeping well. Now recalls that before her stroke she remembers having a bull's eye rash and was seen with severe headaches in [place], [place] - was found to have a [...] root canal and was sent to [facility] for MRI which was negative but non-contrasted. [...] history goes back to January [address] [facility] where she had persisting headaches and slurred speech followed by lower extremity weakness. This took a few months to resolve and she is back to her normal state of being but some point in time during her her next she was seen by Dr. Humera Hyde in [place] as well and was found to have [...] CPE Hematology and Oncology Services Provided at: [place], [place] CC: MD Wilton Day, DO [address] [place] [address] Humaira Gaviria MD [address] [facility] [address] MD Cosmo Kingston MD Michael Blank, MD documented in this encounterTrihealth11-20-2023 Instructions* Patient Instructions* Kristofer Calix MD - 03/19/2023 4:44 PM EST Continue Lovenox - patient prefers 40 mg (rather than rec 80mg) Take B12 supplement in the form of a sublingual tablet. Take Vitamin D3 5000 international unit(s) daily Check labs in 8 weeks Phone / Virtual call after documented in this encounterTrihealth10-19-2023 Hospital Discharge instructions Patient Education 02/15/2023 10:13:08 Ear Drops, Adult, Hypc-yj-Qgkj Ear Drops, Adult Your doctor has found [...] cannot use soap and water, use hand route sales representative. 2.Make sure your ears are clean and [...] you cannot use soapand water, use hand route sales representative. Follow these instructions at home: Use the [...] 02/11/2020 Document Reviewed: 02/11/2020 Elsevier Patient Education 2022 IMedExchange. 02/15/2023 10:13:05 Otitis Externa, Hboj-vd-Abzo Otitis Externa Otitis externa is an infection [...] if you start to feel better. Take xldi-rwr-agqabpa and prescription medicines only as told by [...] provider. Document Revised: 06/29/2021 Document Reviewed: 06/29/2021 Kliqed Patient Education 2022 IMedExchange. Follow Up Care 02/14/2023 12:28:12 With:PRAVEEN RESENDEZ FAAFP, CHRIS Perez, PED Address: [address], [place] [address]- When:Within 2 Month(s) [facility] 08-25-2023 Hospital Discharge instructions Patient [...] including vitamins, herbs, eye drops, creams, and fxko-fur-lkgebdj medicines. ?Whether you are or may be [...] provider. Document Revised: 12/28/2021 Document Reviewed: 11/19/2020 Kliqed Patient Education 2022 K[employer]ed Inc. 12/22/2022 15:19:23 Fatigue Fatigue If you [...] Follow these instructions at home: Medicines Take rwhf-cvc-dsxdesb and prescription medicines only as told by [...] the National Suicide Prevention Lifeline at or 564. This is open 24 hours a day. Text the Crisis Text Line at 566179. Summary If you have fatigue, you feel [...] provider. Document Revised: 02/06/2022 Document Reviewed: 02/06/2022 Kliqed Patient Education 2022 IMedExchange. Follow Up Care 12/22/2022 10:22:02 With:Lourdes Urrutia Address: [address] [place] [address], [facility] [place] [id number]- When: only if needed [facility] 08-25-2023 Instructions* Patient Instructions* Kristofer Calix MD - 12/22/2022 10:13 AM EDT Continue Lovenox - patient prefers 40 mg (rather than rec 80mg) Take B12 supplement in the form of a sublingual tablet. Take Vitamin D3 5000 international unit(s) daily Check labs in 8 weeks Phone / Virtual call after documented in this encounterTrihealth08-25-2023 History of Present illness Narrative* Kristofer Calix MD - 12/22/2022 9:55 AM EDT Images from the original note were not included. Kristofer Calix MD NAME: Sanna Rendon CLINIC NO.: [id number] DATE OF SERVICE: December 22, 2022 (Levon) [...] visit. Either the patient or their legal reimbursement representative has been informed of the risks and benefits of -- and alternatives to -- treatment through a remote evaluation andconsents to proceed with the evaluation remotely. CC: hypercoag state. ASSESSMENT: 37 year old woman with a prior history of CVA in 2016 and an antiphospholipid antibody that was identified much later in 2018. These were found in [place], [place]. I don't have access to these [...] a target-like rash shortly before presenting to [facility] in 2016 with headaches and [...] stayed on Lovenox Hgb 13.1 @ [facility] Recommended ER if persisting bleeding but she [...] and at age 69. Both lived in [place], [place] - but she was adopted. She was not able to see ID in October and will be seeing Dr. Baugh next week. Also will have her see Dr. Hamlin for her clotting disorder and make any other recommendations to optimize her treatment. Updated Visit, October 08, 2020: Telephone only Received call from pt stating she was seen in [facility] for numbness in her chest, throat, and extremities, and sob which has been worsening over the last week. We arranged a telephone visit for her franci questions with me. Sanna Rendon is a 34 year old female seen for Hypercoagulable state and recent concerns and symptoms that required her to be seen at [facility]. She went to the ER with Gradual worsening of breathing after progressive tingling of fingers and legs. She currently remains very fatigued even though she is sleeping well. Now recalls that before her stroke she remembers having a bull's eye rash and was seen with severe headaches in [place], [place] - was found to have a [...] root canal and was sent to [facility] for MRI which was negative but non-contrasted. [...] history goes back to January [address] [facility] where she had persisting headaches and slurred speech followed by lower extremity weakness. This took a few months to resolve and she is back to her normal state of being but some point in time during her her next she was seen by Dr. Humera Hyde in [place] as well and was found to have [...] CPE Hematology and Oncology Services Provided at: [place], [place] CC: MD Wilton Day, [address] [place] [address] Humaira Gaviria MD [address] [place] [address] [place] [address] MD Cosmo Kingston MD Michael Blank, MD documented in this encounterTrihealth08-16-2023 Miscellaneous Notes* Telephone Encounter - Roberta Haskins [...] later time. Roberta Haskins documented in this encounterTrihealth06-23-2023 Hospital Discharge instructions Patient Education 10/20/2022 10:37:38 [...] your health care provider or diet and military logistics specialist (dietitian). This may include: ?Eating fewer [...] provider. Document Revised: 06/12/2021 Document Reviewed: 06/12/2021 Kliqed Patient Education 2022 IMedExchange. 10/20/2022 10:37:18 Preventing Type 2 Diabetes Mellitus [...] with a registered dietitian. This diet and military logistics specialist can help you make a healthy eating plan and help you understand portion sizes and food labels. Where to find support Ask your health care provider to recommend a registered dietitian, a certified diabetes care and special education teachers, or a weight loss program. Look for local or online weight loss groups. Join a gym, fitness club, or outdoor activity group, such as a walking club. Where to find more information For help and guidance and to learn more about diabetes and diabetes prevention, visit: [place] Diabetes Association (ADA): www.diabetes.org National [place] [address] of Diabetes and Digestive and Kidney Diseases: [...] provider. Document Revised: 07/11/2021 Document Reviewed: 07/11/2021 Kliqed Patient Education 2022 IMedExchange. 10/20/2022 10:37:17 Preventing Hypoglycemia Preventing Hypoglycemia Hypoglycemia [...] your hypoglycemia. Where to find more information [place] Diabetes Association: www.diabetes.org National [place] [address] of Diabetes and Digestive and Kidney Diseases: [...] provider. Document Revised: 03/17/2021 Document Reviewed: 03/17/2021 Kliqed Patient Education 2022 IMedExchange. 10/20/2022 10:37:16 Gestational Diabetes Mellitus, Diagnosis, Yvhp-mj-Vzye Gestational Diabetes Mellitus, Diagnosis Gestational diabetes mellitus [...] follow-up visits. Where to find more information [place] Diabetes Association (ADA): diabetes.org Association of Diabetes Care & Education Specialists (ADCES): diabeteseducator.org Centers for Disease Control and Prevention (CDC): cdc.gov [place] Association: americanpregnancy.org U.S. Department of Agriculture MyPlate: [...] provider. Document Revised: 09/20/2020 Document Reviewed: 09/20/2020 Kliqed Patient Education 2022 K[employer]qed Inc. Follow Up Care 09/19/2022 14:47:09 With:PRAVEEN RESENDEZ FAAFP, Penelope Tony, CHRIS, PED Address: [address], [place] [address]- When:Within 3 Month(s) [facility] 06-01-2023 History of Present illness Narrative* Kristofer Calix MD - 09/28/2022 5:00 PM EDT Images from the original note were not included. Kristofer Calix MD NAME: Sanna Rendon CLINIC NO.: [id number] DATE OF SERVICE: September 28, 2022 (berna) [...] visit. Either the patient or their legal reimbursement representative has been informed of the risks and benefits of -- and alternatives to -- treatment through a remote evaluation andconsents to proceed with the evaluation remotely. CC: hypercoag state. ASSESSMENT: 36 year old woman 25 weeks presents with a prior history of CVA in 2016 and anantiphospholipid antibody that was identified much later in 2018. These were found in [place], [place]. I don't have access to these [...] a target-like rash shortly before presenting to [facility] in 2016 with headaches and [...] stayed on Lovenox Hgb 13.1 @ [facility] Recommended ER if persisting bleeding but she [...] and at age 69. Both lived in [place], [place] - but she was adopted. She was not able to see ID in October and will be seeing Dr. Baugh next week. Also will have her see Dr. Hamlin for her clotting disorder and make any other recommendations to optimize her treatment. Updated Visit, October 08, 2020: Telephone only Received call from pt stating she was seen in [facility] for numbness in her chest, throat, and extremities, and sob which has been worsening over the last week. We arranged a telephone visit for her chanw questions with me. Sanna Rendon is a 34 year old female seen for Hypercoagulable state and recent concerns and symptoms that required her to be seen at [facility]. She went to the ER with Gradual worsening of breathing after progressive tingling of fingers and legs. She currently remains very fatigued even though she is sleeping well. Now recalls that before her stroke she remembers having a bull's eye rash and was seen with severe headaches in [place], [place] - was found to have a [...] root canal and was sent to [facility] for MRI which was negative but non-contrasted. [...] history goes back to January [address] [facility] where she had persisting headaches and slurred speech followed by lower extremity weakness. This took a few months to resolve and she is back to her normal state of being but some point in time during her her next she was seen by Dr. Humera Hyde in [place] as well and was found to have [...] CPE Hematology and Oncology Services Provided at: [place], [place] CC: MD Wilton Day, [address] [place] [address] Humaira Gaviria MD [address] [place] [id number] MD Cosmo Kingston MD Michael Blank, MD documented in this encounterTrihealth05-24-2023 Miscellaneous Notes* Telephone Encounter - Cheri Jasso - 09/20/2022 7:06 AM EDT Cxed appt * Telephone Encounter - Valeri Yeung RN - 09/19/2022 3:29 PM EDT Patient would like to have labs drawn at [facility]. Called [facility] lab to get fax number. Lab orders faxed to [phone] Valeri Yeung RN PSS: Can you cancel lab appointment for 09/21/22 here. Thanks. Valeri Yeung RN documented in this encounterTrihealth04-04-2023 Instructions* Patient Instructions* Kristofer Calix MD - 08/01/2022 10:56 AM EDT Continue Lovenox - patient prefers 40 mg (rather than rec 80mg) 8 weeks - labs Phone / Virtual call after documented in this encounterTrihealth03-30-2023 History of Present illness Narrative* Kristofer Calix MD - 07/27/2022 1:18 PM EDT NAME: Sanna Rendon CLINIC NO.: [id number] DATE OF SERVICE: July 27, 2022 (Levon) [...] later in 2018. These were found in [place], [place]. I don't have access to these [...] a target-like rash shortly before presenting to [facility] in 2016 with headaches and [...] and at age 69. Both lived in [facility] but she was adopted. She was not able to see ID in October and will be seeing Dr. Baugh next week. Also will have her see Dr. Hamlin for her clotting disorder and make any other recommendations to optimize her treatment. Updated Visit, October 08, 2020: Telephone only Received call from pt stating she was seen in [facility] for numbness in her chest, throat, and extremities, and sob which has been worsening over the last week. We arranged a telephone visit for her chanw questions with me. Sanna Rendon is a 34 year old female seen for Hypercoagulable state and recent concerns and symptoms that required her to be seen at [facility]. She went to the ER with Gradual worsening of breathing after progressive tingling of fingers and legs. She currently remains very fatigued even though she is sleeping well. Now recalls that before her stroke she remembers having a bull's eye rash and was seen with severe headaches in [place], [place] - was found to have a [...] root canal and was sent to [facility] for MRI which was negative but non-contrasted. [...] history goes back to January [address] [facility] where she had persisting headaches and slurred speech followed by lower extremity weakness. This took a few months to resolve and she is back to her normal state of being but some point in time during her her next she was seen by Dr. Humera Hyde in [place] as well and was found to have [...] which included preparing to see the patient, [id number] patient care, completing clinical documentation, obtaining and/or reviewing separately obtained history, performing a medically appropriate examination, counseling and educating the pat ient/family/caregiver, ordering medications, tests, or procedures, independently interpreting results (not separately reported), and care coordination (not separately reported). Kristofer Calix MD, CPE Hematology and Oncology Services Provided at: [place], [place] CC: MD Wilton Day, [address] [place] [address] Humaira Gaviria MD [address] [place] [id number] MD Cosmo Kingston MD Michael Blank, MD documented in this encounterTrihealth12-07-2022 History of Present illness Narrative* Alison Linares [...] to standard infusion rate. documented in this encounterTrihealth12-06-2022 Miscellaneous Notes* Telephone Encounter - Marleen Ramirez [...] questions answered. Pt transferred to front end loader operator at her request so she can reschedule dates of IV iron d/t otherappts. FELY: Pt would like to have Venofer ordered and not get Monoferric even if approved. Please place orders if agreeable. Meme Gonzalez RN documented in this encounterTrihealth12-01-2022 Miscellaneous Notes* Telephone Encounter - Roberta Haskins [...] were not included. Kristofer Calix MD [facility] Triage Pool; [facility] Clerical Pool She needs iron MUNIRA - if monoferric isn't approved, lets get her in weekly for Venna for. * Telephone Encounter - Roberta Haskins - 03/27/2022 2:57 PM EST 2. Consider IV iron a. Triage nurse to please call iron results when available this week documented in this encounterTrihealth11-28-2022 Instructions* Patient Instructions* Kristofer Calix MD - 03/27/2022 2:51 PM EST Continue Lovenox - patient prefers 40 mg (rather than rec 80mg) Consider IV iron Triage nurse to please call iron results when available this week Will recheck antiphospholipid antibodies as ordered and every 6 months. RTC in 8 weeks - labs same day. documented in this encounterTrihealth11-28-2022 History of Present illness Narrative* Kristofer Calix MD - 03/27/2022 2:15 PM EST Images from the original note were not included. NAME: Sanna Rendon CLINIC NO.: [id number] DATE OF SERVICE: March 27, 2022 (Levon) [...] later in 2018. These were found in [place], [place]. I don't have access to these [...] a target-like rash shortly before presenting to [facility] in 2016 with headaches and [...] and at age 69. Both lived in [facility] but she was adopted. She was not able to see ID in October and will be seeing Dr. Baugh next week. Also will have her see Dr. Hamlin for her clotting disorder and make any other recommendations to optimize her treatment. Updated Visit, October 08, 2020: Telephone only Received call from pt stating she was seen in [facility] for numbness in her chest, throat, and extremities, and sob which has been worsening over the last week. We arranged a telephone visit for her chanw questions with me. Sanna Rendon is a 34 year old female seen for Hypercoagulable state and recent concerns and symptoms that required her to be seen at [facility]. She went to the ER with Gradual worsening of breathing after progressive tingling of fingers and legs. She currently remains very fatigued even though she is sleeping well. Now recalls that before her stroke she remembers having a bull's eye rash and was seen with severe headaches in [place] - was found to have a [...] root canal and was sent to [facility] for MRI which was negative but non-contrasted. [...] history goes back to January [address] [facility] where she had persisting headaches and slurred speech followed by lower extremity weakness. This took a few months to resolve and she is back to her normal state of being but some point in time during her her next she was seen by Dr. Humera Hyde in [place] as well and was found to have [...] which included preparing to see the patient, oqef-ks-wxpr patient care, completing clinical documentation, obtaining and/or reviewing separately obtained history, performing a medically appropriate examination, counseling and educating the pat ient/family/caregiver, ordering medications, tests, or procedures, independently interpreting results (not separately reported), and care coordination (not separately reported). Kristofer Calix MD, CPE Hematology and Oncology Services Provided at: [place], [place] CC: MD Wilton Day, [address] [place] [address] Humaira Gaviria MD [address] [facility] [id number] MD Cosmo Kingston MD Michael Blank, MD documented in this encounterTrihealth10-03-2022 Instructions* Patient Instructions* Kristofer Calix MD - 01/30/2022 12:[address] Hamlin's expertise and will prescribe Lovenox - patient prefers 40 mg (rather than rec 80mg) Will recheck antiphospholipid antibodies as ordered and every 6 months. RTC in 8 weeks - labs same day. documented in this encounterTrihealth10-03-2022 History of Present illness Narrative* Kristofer Calix MD - 01/30/2022 11:59 AM EDT Images from the original note were not included. NAME: Sanna Rendon CLINIC NO.: [id number] DATE OF SERVICE: January 30, 2022 Some elements in this clinic note that are critical to medical decision making have been carefully reviewed and included from a prior clinic note dated: August 01, 2021 Additional Clinicians involved in Sanan Rendon's care: Drs. Herrmann, Jorge Monge, Humaira Gaviria, CC: hypercoag state. ASSESSMENT: 36 year old woman 25 weeks presents with a prior history of CVA in 2016 and anantiphospholipid antibody that was identified much later in 2018. These were found in [place], [place]. I don't have access to these [...] a target-like rash shortly before presenting to [facility] in 2016 with headaches and [...] and at age 69. Both lived in [facility] but she was adopted. She was not able to see ID in October and will be seeing Dr. Baugh next week. Also will have her see Dr. Hamlin for her clotting disorder and make any other recommendations to optimize her treatment. Updated Visit, October 08, 2020: Telephone only Received call from pt stating she was seen in [facility] for numbness in her chest, throat, and extremities, and sob which has been worsening over the last week. We arranged a telephone visit for her franci questions with me. Sanna Rendon is a 34 year old female seen for Hypercoagulable state and recent concerns and symptoms that required her to be seen at [facility]. She went to the ER with Gradual worsening of breathing after progressive tingling of fingers and legs. She currently remains very fatigued even though she is sleeping well. Now recalls that before her stroke she remembers having a bull's eye rash and was seen with severe headaches in [place] - was found to have a [...] root canal and was sent to [facility] for MRI which was negative but non-contrasted. [...] history goes back to January [address] [facility] where she had persisting headaches and slurred speech followed by lower extremity weakness. This took a few months to resolve and she is back to her normal state of being but some point in time during her her next she was seen by Dr. Humera Hyde in [place] as well and was found to have [...] which included preparing to see the patient, njal-cb-dcru patient care, completing clinical documentation, obtaining and/or reviewing separately obtained history, performing a medically appropriate examination, counseling and educating the pat ient/family/caregiver, and ordering medications, tests, or procedures. Kristofer Calix MD, [place], [place] CC: Dr. Praveen MD Wilton Spencer [place], [address] [place] [address] Humaira Gaviria MD [address] [place] [id number] MD Cosmo Kingston MD Michael Blank, MD documented in this encounterTrihealth10-03-2022 Nurse Note* Serina Dawson MA - 01/30/2022 11:55 AM EDT Patient states she may be diagnosed with gestational diabetes, she was from 215 to 52 a couple hours later after eating wheat cereal. She sees OB tomorrow. Serina Dawson MA documented in this encounterTrihealth09-02-2022 Miscellaneous Notes* Telephone Encounter - Tonja Pope RN - 12/30/2021 10:15 AM EDT Call received from Sanna requesting refill of Lovenox 40 mg to be sent to [facility] in [place]. FELY: Please review and approve if you agree. Tonja Chery RN documented in this encounterTrihealth06-13-2022 Miscellaneous Notes* Telephone Encounter - Meme Easton RN - 10/10/2021 12:15 PM EDT Received call from pt requesting refill of Lovenox 40 mg to be sent to [facility] in [place]. FELY: Pt also states she had one episode of blood in her stool which was dripping blood which concerned her. She is not ready to move to 80 mg of Lovenox at this time. Order pending. Please review and sign if agreeable. Meme Easton RN documented in this encounterTrihealth05-10-2022 Miscellaneous Notes* Telephone Encounter - Kristofer Calix [...] agreeable. Meme Easton RN documented in this encounterTrihealth05-09-2022 Miscellaneous Notes* Telephone Encounter - Meme Easton [...] advise. Meme Easton RN documented in this encounterTrihealth04-25-2022 Miscellaneous Notes* Telephone Encounter - Meme Easton [...] Thoughts? Meme Easton RN documented in this encounterTrihealth04-22-2022 Hospital Discharge instructions Patient Education 08/19/2021 13:02:22 [...] including vitamins, herbs, eye drops, creams, and vwfn-gpl-rhzvube medicines. ?Whether you are or may be [...] 02/11/2008 Document Revised: 08/05/2019 Document Reviewed: 02/18/2018 Kliqed Patient Education 2020 K[employer]qed Inc. 08/19/2021 13:02:21 Dysuria Dysuria Dysuria is [...] alcohol may irritate the prostate. Medicines Take konn-dvp-ptnrbrk and prescription medicines only as told by [...] 01/12/2005 Document Revised: 03/29/2018 Document Reviewed: 01/31/2018 Kliqed Patient Education 2020 IMedExchange. 08/19/2021 13:02:17 Budget-Friendly Healthy Eating Budget-Friendly Healthy [...] frozen fruits, and frozen vegetables. Avoid buying vliou-uo-sip foods, such as pre-cut fruits and vegetables and pre-made salads. If possible, shop around to discover where you can find the best prices. Consider other retailers such as dollar stores, larger wholesale stores, local fruit and vegetable stands, and [employer] markets. Do not shop when you are [...] 12/18/2014 Document Revised: 04/17/2018 Document Reviewed: 04/17/2018 Kliqed Patient Education 2020 IMedExchange. 08/19/2021 13:02:15 BMI for Adults BMI for [...] height. This can be done either in [place] ([place] or metric measurements. Note that charts are available to help you find your BMI quickly and easily without having to do these calculations yourself. To calculate your BMI in [place] ([place] measurements, your health care provider will: [...] medical problems. BMI can be measured using Palestinian measurements or metric measurements. To interpret your [...] 12/26/2004 Document Revised: 03/29/2018 Document Reviewed: 02/27/2018 Kliqed Patient Education 2020 IMedExchange. 08/19/2021 13:02:11 Paresthesia Paresthesia Paresthesia is an [...] fried or sweet foods. General instructions Take lqej-vda-bhglerz and prescription medicines only as told by [...] 04/06/2003 Document Revised: 05/12/2019 Document Reviewed: 04/25/2018 Kliqed Patient Education 2020 IMedExchange. Follow Up Care 08/19/2021 09:17:52 With:Penelope CASAS DO, FAAFP, FAM, PED Address: [place] [address]- When:1 to 2 weeks [facility] [place] 04-22-2022 Evaluation + Plan note Future Scheduled Tests Radiology* XR Spine Lumbosacral Minimum 4 Views 08/19/21 [facility]04-07-2022 Miscellaneous Notes* Telephone Encounter - Roberta Haskins - 08/04/2021 3:36 PM EDT Patient is scheduled for 09/[address] Elliott. Roberta Haskins * Telephone Encounter - Roberta Haskins - 08/01/2021 1:05 PM EDT Sent Email to [facility] to refer patient back to Dr. Cosmo Elliott Dx: Primary hypercoagulable state (HCC) Roberta Haskins documented in this encounterTrihealth04-04-2022 Nurse Note* Ebony Redding Ma - 08/01/2021 12:48 PM EDT UA ran as ordered. Ebony Redding Ma documented in this encounterTrihealth03-28-2020 Evaluation + Plan note Future Appointments Appointment Date:07/25/2024 02:30:00 PM Scheduled Provider: Location:[facility] Appointment Type:CV EKG (FT) Appointment Date:07/25/2024 03:00:00 PM Scheduled Provider: Location:[facility] Appointment Type:CV Holter/Event (FT) Appointment Date:09/09/2024 08:20:00 AM Scheduled Provider:Penelope CASAS DO, FAAFP Location:[facility] Appointment Type:FM Open Future Scheduled Tests Laboratory* HgbA1c 08/05/24 * HgbA1c 11/04/24 Radiology* CT Soft Tissue Neck w/ Contrast 11/12/23 [facility] [id number] Evaluation + Plan note Future Appointments Appointment Date:07/25/2024 02:30:00 PM Scheduled [facility]: [facility] Type:CV EKG (FT) Appointment Date:07/25/2024 03:00:00 PM Scheduled Provider: [facility] Type:CV Holter/Event () Appointment Date:09/09/2024 08:20:00 AM Scheduled Provider:Penelope CASAS DO, FAAFP Location:[facility] Appointment Type:FM Open Diagnostic Tests Pending * Hepatitis B Surface Antigen 07/09/24 * HCV Antibody RFX to Quant PCR 07/09/24 * Hep Be Ag 07/09/24 * HIV Screen 4th Generation wRfx 07/09/24 Future Scheduled Tests Laboratory* HgbA1c 08/05/24 * HgbA1c 11/04/24 Radiology* CT Soft Tissue Neck w/ Contrast 11/12/23 [facility] Evaluation + Plan note Future Appointments Appointment Date:11/08/2021 12:40:00 PM Scheduled Provider:Penelope CASAS DO, FAAFP Location:[facility] Appointment Type:FM Open Future Scheduled Tests Radiology* XR Spine Lumbosacral Minimum 4 Views 08/19/21 [facility] [place] Evaluation + Plan note Future Appointments Appointment Date:11/08/2021 12:40:00 PM Scheduled Provider:Penelope CASAS DO, FAAFP Location:[facility] Appointment Type:FM Open Diagnostic Tests Pending * Urine Culture 08/19/21 Future Scheduled Tests Radiology* XR Spine Lumbosacral Minimum 4 [facility] Appointment Date:09/21/2022 10:00:00 AM Scheduled Provider:Penelope CASAS DO, FAAFP [facility] Appointment Date:10/20/2022 09:40:00 AM Scheduled Provider:Penelope CASAS DO, FAAFP [facility]ments Appointment Date:01/26/2023 10:40:00 AM Scheduled Provider:Penelope CASAS DO, FAAFP Location:[facility] Appointment Type:[facility] Evaluation + Plan note Future Appointments Appointment Date:04/17/2023 02:20:00 PM Scheduled Provider:Penelope CASAS DO, FAAFP Location:[facility] Appointment Type: Open Future Scheduled Tests Laboratory* HgbA1c 02/15/23 * Thyroid Stimulating Hormone 02/15/23 * Thyroid Stimulating Hormone 01/11/23 [facility] Evaluation + Plan note Future Appointments Appointment Date:07/24/2023 01:20:00 PM Scheduled Provider:Penelope CASAS DO, FAAFP Location:[facility] Appointment Type: Open Future Scheduled Tests Laboratory* HgbA1c 02/15/23 * Thyroid Stimulating Hormone [facility] Appointment Date:07/24/2023 01:20:00 PM Scheduled Provider:Penelope CASAS DO, FAAFP Location:[facility] Appointment Type:[facility] Evaluation + Plan note Future Appointments Appointment Date:12/03/2023 12:40:00 PM Scheduled Provider:Penelope CASAS DO, FAAFP Location:[facility] Appointment Type: Open Future Scheduled Tests Laboratory* HgbA1c 08/03/23 [facility] Primary [facility] evaluation + Plan note Future Appointments Appointment Date:12/03/2023 12:40:00 PM Scheduled Provider:Penelope CASAS DO, FAAFP Location:[facility] Appointment Type:FM Open Future Scheduled Tests Laboratory* Sedimentation Rate Automated 11/09/23 * HgbA1c 08/03/23 * Amylase Level 11/09/23 * Cortisol 11/09/23 * C-Reactive Protein 11/09/23 * T3 Free 11/09/23 * Thyroid Stimulating Hormone 11/09/23 * Free T4 11/09/23 * Vitamin B12 Level 11/09/23 Radiology* MRI Brain w/o Contrast 11/09/23 * MRI Orbit Face Neck w/o contrast 11/09/23 [facility] Evaluation + Plan note Future Appointments Appointment Date:01/11/2024 08:15:00 PM Scheduled Provider: Location:.SLEEP LAB_ 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 Sleep Study PSG () Appointment Date:01/29/2024 01:20:00 PM Scheduled Provider:Penelope CASAS DO, FAAFP Location:[facility] Appointment Type: Open Diagnostic Tests Pending * Cortisol 12/06/23 * T3 Free 12/06/23 Future Scheduled Tests Laboratory* HgbA1c 08/03/23 Radiology* CT Soft Tissue Neck w/ Contrast 11/12/23 [facility] Evaluation + Plan note Future Appointments Appointment Date:05/16/2024 11:40:00 AM Scheduled Provider:Penelope CASAS DO, FAAFP Location:[facility] Appointment Type:FM Open Future Scheduled Tests Laboratory* HgbA1c 02/05/24 * HgbA1c 05/07/24 * HgbA1c 08/05/24 * HgbA1c 11/04/24 * HgbA1c 08/03/23 * HIV Screen 4th Generation wRfx 02/05/24 * HIV Screen 4th Generation wRfx 02/05/24 * Lipid Panel 02/05/24 Radiology* CT Soft Tissue Neck w/ Contrast 11/12/23 [facility] evaluation + Plan note Future Appointments Appointment Date:05/16/2024 11:40:00 AM Scheduled Provider:Penelope CASAS DO, FAAFP Location:[facility] Appointment Type:FM Open Future Scheduled Tests Laboratory* HgbA1c 05/07/24 * HgbA1c 08/05/24 * HgbA1c 11/04/24 Radiology* CT Soft Tissue Neck w/ Contrast 11/12/23 [facility] evaluation + Plan note Future Appointments Appointment Date:05/16/2024 11:40:00 AM Scheduled Provider:Penelope CASAS DO, FAAFP Location:[facility] Appointment Type:FM Open Diagnostic Tests Pending * HIV Screen 4th Generation wRfx 02/23/24 Future Scheduled Tests Laboratory* HgbA1c 05/07/24 * HgbA1c 08/05/24 * HgbA1c 11/04/24 Radiology* CT Soft Tissue Neck w/ Contrast 11/12/23 [facility] evaluation + Plan note Future Appointments Appointment Date:05/16/2024 11:40:00 AM Scheduled Provider:Penelope CASAS DO, FAAFP Location:[facility] Appointment Type:FM Open Future Scheduled Tests Laboratory* HgbA1c 08/05/24 * HgbA1c 11/04/24 Radiology* CT Soft Tissue Neck w/ Contrast 11/12/23 [facility] evaluation + Plan note Future Appointments Appointment Date:05/16/2024 11:40:00 AM Scheduled Provider:Penelope CASAS DO, FAAFP Location:[facility] Appointment Type:FM Open Diagnostic Tests Pending * Urine Culture 03/01/24 Future Scheduled Tests Laboratory* HgbA1c 08/05/24 * HgbA1c 11/04/24 Radiology* CT Soft Tissue Neck w/ Contrast 11/12/23 [facility] evaluation + Plan note Future Appointments Appointment Date:07/07/2024 02:20:00 PM Scheduled Provider:Penelope CASAS DO, FAAFP Location:[facility] Appointment Type:FM Open Future Scheduled Tests Laboratory* HgbA1c 08/05/24 * HgbA1c 11/04/24 Radiology* CT Soft Tissue Neck w/ Contrast 11/12/23 [facility] Primary [facility] evaluation + Plan note Future Appointments Appointment Date:09/09/2024 08:20:00 AM Scheduled Provider:Penelope CASAS DO, FAAFP Location:[facility] Appointment Type: Open Future Scheduled Tests Laboratory* HgbA1c 08/05/24 * HgbA1c 11/04/24 Radiology* CT Soft Tissue Neck w/ Contrast 11/12/23 [facility] Evaluation note* Diagnosis Infective urethritis- Primary Urethritis, unspecified [facility]* Diagnosis Primary hypercoagulable state (HCC) Primary hypercoagulable state CVA, old, speech/language deficit Speech and language deficit, unspecified, 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 Hyposmolality and/or hyponatremia [facility] Diagnosis Primary hypercoagulable state (HCC) Primary hypercoagulable state CVA, old, speech/language deficit Speech and language deficit, unspecified, 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 Hyposmolality and/or hyponatremia [facility] Diagnosis Primary hypercoagulable state (HCC)- Primary Primary hypercoagulable state CVA, old, speech/language deficit Speech and language deficit, unspecified, late effect of cerebrovascular disease Antiphospholipid antibody syndrome (HCC) Primary hypercoagulable state Anemia, unspecified type [facility]* Diagnosis Iron deficiency anemia secondary to blood loss (chronic) Iron deficiency anemia of Anemia of mother, complicating , childbirth, or the puerperium, unspecified as to episode of care [facility] 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 Iron deficiency anemia of Anemia of mother, complicating , childbirth, or the puerperium, unspecified as to episode of care [facility]* Diagnosis Primary hypercoagulable state (HCC) Primary hypercoagulable state CVA, old, speech/language deficit Speech and language deficit, unspecified, 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 Hyposmolality and/or hyponatremia [facility]* 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 Iron deficiency anemia of Anemia of mother, complicating , childbirth, or the puerperium, unspecified as to episode of care [facility]* Diagnosis Primary hypercoagulable state (HCC) Primary hypercoagulable state CVA, old, speech/language deficit Speech and language deficit, unspecified, 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 Hyposmolality and/or hyponatremia [facility]* Diagnosis Primary hypercoagulable state (HCC)- Primary Primary hypercoagulable state 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, old, speech/language deficit Speech and language deficit, unspecified, late effect of cerebrovascular disease [facility]* Diagnosis Primary hypercoagulable state (HCC) Primary hypercoagulable state CVA, old, speech/language deficit Speech and language deficit, unspecified, 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 Hyposmolality and/or hyponatremia [facility]* Diagnosis Primary hypercoagulable state (HCC)- Primary Primary hypercoagulable state Iron deficiency anemia of Anemia of mother, complicating , childbirth, or the puerperium, unspecified as to episode of care Iron deficiency anemia secondary to blood loss (chronic) Vitamin D deficiency Unspecified vitamin D deficiency [facility] Diagnosis Primary hypercoagulable state (HCC)- Primary Primary hypercoagulable state Iron deficiency anemia secondary to blood loss (chronic) Vitamin D deficiency Unspecified vitamin D deficiency CVA, old, speech/language deficit Speech and language deficit, unspecified, late effect of cerebrovascular disease Antiphospholipid antibody syndrome (HCC) Primary hypercoagulable state [facility] Diagnosis Primary hypercoagulable state (HCC)- Primary Primary hypercoagulable state CVA, old, speech/language deficit Speech and language deficit, unspecified, late effect of cerebrovascular disease Hypercalcemia Vitamin D deficiency Unspecified vitamin D deficiency Iron deficiency anemia secondary to blood loss (chronic) Malaise and fatigue Other malaise and fatigue [facility] Diagnosis Vitamin D deficiency- Primary Unspecified vitamin D deficiency 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) Antiphospholipid antibody syndrome (HCC) Primary hypercoagulable state Malaise and fatigue Other malaise and fatigue [facility]* Diagnosis Vitamin D deficiency- Primary Unspecified vitamin D deficiency 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) [facility]* 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 [facility]* Diagnosis Iron deficiency anemia of - Primary Anemia of mother, complicating , childbirth, or the puerperium, unspecified as to episode of care Iron deficiency anemia secondary to blood loss (chronic) [facility]* Diagnosis Iron deficiency anemia of - Primary Anemia of mother, complicating , childbirth, or the puerperium, unspecified as to episode of care Iron deficiency anemia secondary to blood loss (chronic) [facility]* 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 Vitamin D deficiency Unspecified vitamin D deficiency Malaise and fatigue Other malaise and fatigue [facility] Diagnosis Primary hypercoagulable state (HCC) Primary hypercoagulable state CVA, old, speech/language deficit Speech and language deficit, unspecified, 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 Hyposmolality and/or hyponatremia [facility]* Diagnosis Missed menses , unspecified gestational age Encounter for supervision of normal first in first trimester Hypothyroidism (acquired) (CMS/HCC) Unspecified hypothyroidism Low vitamin D level [facility] Diagnosis 14 weeks gestation of Second trimester state, incidental Confirm viability with history of miscarriage, ultrasound Encounter for routine screening for malformation using ultrasonics [facility] noteNo assessment information availableSelect Medical [facility] [place] Work Phone: Evaluation note* Diagnosis Primary hypercoagulable state (HCC)- Primary Primary hypercoagulable state CVA, old, speech/language deficit Speech and language deficit, unspecified, 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) Vitamin D deficiency Unspecified vitamin D deficiency Antiphospholipid antibody syndrome (HCC) Primary hypercoagulable state [facility] Diagnosis Follow-up visit after miscarriage Abnormal TSH History of thyroid disease [facility]* Diagnosis Vaginal bleeding Other specified noninflammatory disorder of vagina Dizziness Dizziness and giddiness Abnormal TSH Vaginal discharge Leukorrhea, not specified as infective Pelvic pain in female Unspecified symptom associated with female genital organs documented [facility]* Diagnosis Irregular menstrual cycle documented [facility]* Diagnosis Primary hypercoagulable state (HCC) Primary hypercoagulable state CVA, old, speech/language deficit Speech and language deficit, unspecified, 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 Hyposmolality and/or hyponatremia [facility]* Diagnosis Antiphospholipid antibody positive- Primary Other and unspecified nonspecific immunological findings Iron deficiency anemia secondary to blood loss (chronic) Malaise and fatigue Other malaise and fatigue Vitamin D deficiency Unspecified vitamin D deficiency [facility]* Diagnosis Amenorrhea Absence of menstruation Missed menses , unspecified gestational age Encounter for supervision of normal first in first trimester Thyroid disease ([facility]/HCC) Unspecified disorder of thyroid documented [facility]* Diagnosis Gestational diabetes mellitus (GDM), antepartum, gestational diabetes method of control unspecified- Primary [facility]* Diagnosis Primary hypercoagulable state (HCC) Primary hypercoagulable state CVA, old, speech/language deficit Speech and language deficit, unspecified, 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 Hyposmolality and/or hyponatremia [facility]* Diagnosis Primary hypercoagulable state (HCC)- Primary Primary hypercoagulable state CVA, old, speech/language deficit Speech and language deficit, unspecified, 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 Hyposmolality and/or hyponatremia Personal history of TIA (transient ischemic attack) Transient ischemic attack (TIA), and cerebral infarction without residual deficits [facility]* Diagnosis Second trimester (HHS-HCC) state, incidental 13 weeks gestation of (HHS-HCC) Thyroid disease Unspecified disorder of thyroid Multigravida of advanced maternal age in second trimester (HHS-HCC) Gestational diabetes mellitus (GDM), antepartum, gestational diabetes method of control unspecified([facility]) Elevated glucose tolerance test Impaired glucose tolerance test documented [facility]* Diagnosis Gestational diabetes mellitus (GDM), antepartum, gestational diabetes method of control unspecified- Primary [facility] Diagnosis Second trimester (HHS-HCC) state, incidental 16 weeks gestation of ([facility]) Screening, , for anatomic survey ([facility]) Encounter for anatomic survey Vaginal discharge Leukorrhea, not specified as infective Sinus headache Headache documented [facility]* Diagnosis Insulin controlled gestational diabetes mellitus (GDM) in second trimester- Primary documented in this encounter [facility]* Diagnosis 19 weeks gestation of ([facility]) Second trimester ([facility]) state, incidental Thyroid disease Unspecified disorder of thyroid Multigravida of advanced maternal age in second trimester ([facility]) Gestational diabetes mellitus (GDM), antepartum, gestational diabetes method of control unspecified([facility]) documented in [facility]* Diagnosis Gestational diabetes mellitus (GDM) in second trimester controlled on oral hypoglycemic drug- Primary documented in this encounter [facility]* Diagnosis Antiphospholipid antibody positive- Primary Other and unspecified nonspecific immunological findings Iron deficiency anemia secondary to blood loss (chronic) Vitamin D deficiency Unspecified vitamin D deficiency Primary hypercoagulable state (HCC) Primary hypercoagulable state [facility]* Diagnosis Gestational diabetes mellitus (GDM) in second trimester controlled on oral hypoglycemic drug- Primary documented in this encounter [facility]* Diagnosis Multigravida of advanced maternal age in second trimester- Primary Antiphospholipid syndrome complicating , antepartum Gestational diabetes mellitus (GDM) in second trimester controlled on oral hypoglycemic drug Insulin controlled gestational diabetes mellitus (GDM) in second trimester AMA (advanced maternal age) multigravida 35+, second trimester Hypothyroidism, unspecified type documented in this encounter [facility]* Diagnosis 22 weeks gestation of [...] and/or hyponatremia [facility]* Diagnosis Multigravida of advanced [...] and/or hyponatremia documented [facility]* Diagnosis Second trimester (HHS-HCC) state, incidental 23 weeks gestation of ([facility]) Thyroid disease Unspecified disorder of thyroid Gestational diabetes mellitus (GDM), antepartum, gestational diabetes method of control unspecified([facility]) Multigravida of advanced maternal age in second [...] (HHS-HCC) state, incidental 25 weeks gestation of ([facility]) Gestational diabetes mellitus (GDM), antepartum, gestational diabetes method of control unspecified([facility]) Anticoagulant long-term use Encounter for long-term (current) use of anticoagulants Antiphospholipid antibody positive Other and unspecified nonspecific immunological findings Antiphospholipid antibody syndrome ([facility]) Primary hypercoagulable state documented in this encounter [...] defect, unspecified (HHS-HCC) documented in this encounter [facility]* Diagnosis Antiphospholipid syndrome- Primary Primary hypercoagulable state Antiphospholipid syndrome complicating , antepartum History of CVA (cerebrovascular accident) Transient ischemic attack (TIA), and cerebral infarction without residual deficits Coordination of complex care 29 weeks gestation of [facility]* Diagnosis Third trimester (HHS-HCC) state, incidental 30 weeks gestation of (HHS-HCC) [facility] Narrative No data available for this section [facility] Discharge instructions No data available for this section [facility]ructionsNot on filedocumented in this encounter [facility] [...] be sent through Care Everywhere. * Preeclampsia ([place]est[place]) documented in [facility] SystemInstructionsNot on file documented in this encounter[facility] SystemInstructionsNot on file documented in this encounterPro[facility]ica Health SystemInstructionsNot on file documented in this encounter[facility] SystemInstructionsNot on file documented in this encounterProMedica Health SystemInstructions* Attachments The following attachments cannot be sent through Care Everywhere. * Preeclampsia ([place]) documented in [facility] SystemInstructionsNot on file documented in this encounterProMount [facility] SystemInstructionsNot on file documented in this encounterProMount [facility] SystemProgress note No data available for this section [facility] (narrative) , pt reported hx of nasal polyps and deviated septum but never had surgery done Referred by: Shirlene YEBOAH, Lourdes Baltazar [facility] Reason for visit Narrative* Consultation (Urgent) - Pending ReviewSpecialtyDiagnoses / ProceduresReferred By ContactReferred To ContactRheumatology Diagnoses 22 weeks gestation of Antiphospholipid syndrome complicating , antepartum Mukul Noyola MD [address] [facility], [address] [place] [id number] Phone: tel: fax: Sam Callahan MD [facility] [address] [address] Phone: tel: fax: Referral IDStatusReasonStart DateExpiration DateVisits RequestedVisits [id number] Review Specialty Services Required / [facility] Summary Purpose Family History No Family [...] a 30 minute post dose observation. Rate/Dose Ugpjxi5304/05/2022 2:44 PM ZYC264.67 mL/poXanolnssq29/07/2022 2:25 PM [id number] mL/hrNew Bag/Syringe/Befsil0804/05/2022 1:52 PM [id number] mg166.67 mL/hr Medication OrderMAR ActionAction DateDoseRateSite iron sucrose 300 mg in NaCl 0.9% 250 mL (VENOFER) 300 mg, INTRAVENOUS, at 166.67 mL/hr, Administer over 90 Minutes, ONCE, 1 dose, On Christie 04/20/22 at 1400, Please conduct a 30 minute post dose observation. New Bag/Syringe/Dwuoyk6804/20/2022 2:01 PM [id number] mg166.67 mL/hr Additional Source Comments INFORMATION SOURCE (unrecogn ized section and content) DATE CREATED AUTHOR 10/22/2017 [facility] DATE CREATED AUTHOR AUTHOR'S ORGANIZ ATION 11/14/2017 [facility] DATE CREATED AUTHOR AUTHOR'S ORGANIZ ATION 06/18/2018 [facility] DATE CREATED AUTHOR AUTHOR'S ORGANIZ ATION 12/30/2021 [facility] DATE CREATED AUTHOR AUTHOR'S ORGANIZ ATION 06/09/2022 [facility] DATE CREATED AUTHOR AUTHOR'S ORGANIZ ATION 09/29/2023 [facility] DATE CREATED AUTHOR AUTHOR'S ORGANIZ ATION 12/03/2023 [facility] DATE CREATED AUTHOR AUTHOR'S ORGANIZ ATION 12/09/2023 [facility] DATE CREATED AUTHOR AUTHOR'S ORGANIZ ATION 12/10/2023 [facility] DATE CREATED AUTHOR AUTHOR'S ORGANIZ ATION 01/27/2024 [facility] DATE CREATED AUTHOR AUTHOR'S ORGANIZ ATION 02/24/2024 [facility] DATE CREATED AUTHOR AUTHOR'S ORGANIZ ATION 02/26/2024 [facility] DATE CREATED AUTHOR AUTHOR'S ORGANIZ ATION 02/28/2024 [facility] DATE CREATED AUTHOR AUTHOR'S ORGANIZ ATION 03/02/2024 [facility] DATE CREATED AUTHOR AUTHOR'S ORGANIZ ATION 03/03/2024 [facility] DATE CREATED AUTHOR AUTHOR'S ORGANIZ ATION 05/15/2024 [facility] DATE CREATED AUTHOR AUTHOR'S ORGANIZ ATION 05/17/2024 [facility] DATE CREATED AUTHOR AUTHOR'S ORGANIZ ATION 05/18/2024 [facility] DATE CREATED AUTHOR AUTHOR'S ORGANIZ ATION 05/19/2024 [facility] DATE CREATED AUTHOR AUTHOR'S ORGANIZ ATION 06/11/2024 [facility] DATE CREATED AUTHOR AUTHOR'S ORGANIZ ATION 06/17/2024 [facility] DATE CREATED AUTHOR AUTHOR'S ORGANIZ ATION 07/09/2024 [facility] DATE CREATED AUTHOR AUTHOR'S ORGANIZ ATION 07/12/2024 [facility] DATE CREATED AUTHOR AUTHOR'S ORGANIZ ATION 07/15/2024 [facility] DATE CREATED AUTHOR AUTHOR'S ORGANIZ ATION 08/24/2024 [facility] DATE CREATED AUTHOR AUTHOR'S ORGANIZ ATION 08/26/2024 [facility] DATE CREATED AUTHOR AUTHOR'S ORGANIZ ATION 09/01/2024 [facility] DATE CREATED AUTHOR AUTHOR'S ORGANIZ ATION 09/08/2024 [facility] DATE CREATED AUTHOR AUTHOR'S ORGANIZ ATION 09/11/2024 [facility] DATE CREATED AUTHOR AUTHOR'S ORGANIZ ATION 12/09/2024 [facility] DATE CREATED AUTHOR AUTHOR'S ORGANIZ ATION 01/18/2025 [facility] DATE CREATED AUTHOR AUTHOR'S ORGANIZ ATION 02/07/2025 [facility] DATE CREATED AUTHOR AUTHOR'S ORGANIZ ATION 02/13/2025 [facility] DATE CREATED AUTHOR AUTHOR'S ORGANIZ ATION 02/17/2025 [facility] DATE CREATED AUTHOR AUTHOR'S ORGANIZ ATION 02/24/2025 [facility] DATE CREATED AUTHOR AUTHOR'S ORGANIZ ATION 03/03/2025 [facility] Source Comments (unrecognize d section and content) In the event this informatio n is protected by the Federal Confidentiality of Alcohol and Drug Abuse Patient Records regulations: The Federal rules restrict any use of the information to criminally investigate or prosecute any alcohol or drug abuse patient.TrihealthIn the event this information is protected by the Federal Confidentiality of Alcohol and Drug Abuse Patient Records regulations: The Federal rules restrict any use of the information to criminally investigate or prosecute any alcohol or drug abuse patient.TrihealthIn the event this information is protected by the Federal Confidentiality of Alcohol and Drug Abuse Patient Records regulations: The Federal rules restrict any use of the information to criminally investigate or prosecute any alcohol or drug abuse patient.TrihealthIn the event this information is protected by the Federal Confidentiality of Alcohol and Drug Abuse Patient Records regulations: The Federal rules restrict any use of the information to criminally investigate or prosecute any alcohol or drug abuse patient.TrihealthIn the event this information is protected by the Federal Confidentiality of Alcohol and Drug Abuse Patient Records regulations: The Federal rules restrict any use of the information to criminally investigate or prosecute any alcohol or drug abuse patient.TrihealthIn the event this information is protected by the Federal Confidentiality of Alcohol and Drug Abuse Patient Records regulations: The Federal rules restrict any use of the information to criminally investigate or prosecute any alcohol or drug abuse patient.TrihealthIn the event this information is protected by the Federal Confidentiality of Alcohol and Drug Abuse Patient Records regulations: The Federal rules restrict any use of the information to criminally investigate or prosecute any alcohol or drug abuse patient.TrihealthIn the event this information is protected by the Federal Confidentiality of Alcohol and Drug Abuse Patient Records regulations: The Federal rules restrict any use of the information to criminally investigate or prosecute any alcohol or drug abuse patient.TrihealthIn the event this information is protected by the Federal Confidentiality of Alcohol and Drug Abuse Patient Records regulations: The Federal rules restrict any use of the information to criminally investigate or prosecute any alcohol or drug abuse patient.TrihealthIn the event this information is protected by the Federal Confidentiality of Alcohol and Drug Abuse Patient Records regulations: The Federal rules restrict any use of the information to criminally investigate or prosecute any alcohol or drug abuse patient.TrihealthIn the event this information is protected by the Federal Confidentiality of Alcohol and Drug Abuse Patient Records regulations: The Federal rules restrict any use of the information to criminally investigate or prosecute any alcohol or drug abuse patient.TrihealthIn the event this information is protected by the Federal Confidentiality of Alcohol and Drug Abuse Patient Records regulations: The Federal rules restrict any use of the information to criminally investigate or prosecute any alcohol or drug abuse patient.TrihealthIn the event this information is protected by the Federal Confidentiality of Alcohol and Drug Abuse Patient Records regulations: The Federal rules restrict any use of the information to criminally investigate or prosecute any alcohol or drug abuse patient.TrihealthIn the event this information is protected by the Federal Confidentiality of Alcohol and Drug Abuse Patient Records regulations: The Federal rules restrict any use of the information to criminally investigate or prosecute any alcohol or drug abuse patient.TrihealthIn the event this information is protected by the Federal Confidentiality of Alcohol and Drug Abuse Patient Records regulations: The Federal rules restrict any use of the information to criminally investigate or prosecute any alcohol or drug abuse patient.TrihealthIn the event this information is protected by the Federal Confidentiality of Alcohol and Drug Abuse Patient Records regulations: The Federal rules restrict any use of the information to criminally investigate or prosecute any alcohol or drug abuse patient.TrihealthIn the event this information is protected by the Federal Confidentiality of Alcohol and Drug Abuse Patient Records regulations: The Federal rules restrict any use of the information to criminally investigate or prosecute any alcohol or drug abuse patient.TrihealthIn the event this information is protected by the Federal Confidentiality of Alcohol and Drug Abuse Patient Records regulations: The Federal rules restrict any use of the information to criminally investigate or prosecute any alcohol or drug abuse patient.TrihealthIn the event this information is protected by the Federal Confidentiality of Alcohol and Drug Abuse Patient Records regulations: The Federal rules restrict any use of the information to criminally investigate or prosecute any alcohol or drug abuse patient.TrihealthIn the event this information is protected by the Federal Confidentiality of Alcohol and Drug Abuse Patient Records regulations: The Federal rules restrict any use of the information to criminally investigate or prosecute any alcohol or drug abuse patient.TrihealthIn the event this information is protected by the Federal Confidentiality of Alcohol and Drug Abuse Patient Records regulations: The Federal rules restrict any use of the information to criminally investigate or prosecute any alcohol or drug abuse patient.TrihealthIn the event this information is protected by the Federal Confidentiality of Alcohol and Drug Abuse Patient Records regulations: The Federal rules restrict any use of the information to criminally investigate or prosecute any alcohol or drug abuse patient.TrihealthIn the event this information is protected by the Federal Confidentiality of Alcohol and Drug Abuse Patient Records regulations: The Federal rules restrict any use of the information to criminally investigate or prosecute any alcohol or drug abuse patient.TrihealthIn the event this information is protected by the Federal Confidentiality of Alcohol and Drug Abuse Patient Records regulations: The Federal rules restrict any use of the information to criminally investigate or prosecute any alcohol or drug abuse patient.TrihealthIn the event this information is protected by the Federal Confidentiality of Alcohol and Drug Abuse Patient Records regulations: The Federal rules restrict any use of the information to criminally investigate or prosecute any alcohol or drug abuse patient.TrihealthIn the event this information is protected by the Federal Confidentiality of Alcohol and Drug Abuse Patient Records regulations: The Federal rules restrict any use of the information to criminally investigate or prosecute any alcohol or drug abuse patient.TrihealthIn the event this information is protected by the Federal Confidentiality of Alcohol and Drug Abuse Patient Records regulations: The Federal rules restrict any use of the information to criminally investigate or prosecute any alcohol or drug abuse patient.TrihealthIn the event this information is protected by the Federal Confidentiality of Alcohol and Drug Abuse Patient Records regulations: The Federal rules restrict any use of the information to criminally investigate or prosecute any alcohol or drug abuse patient.TrihealthIn the event this information is protected by the Federal Confidentiality of Alcohol and Drug Abuse Patient Records regulations: The Federal rules restrict any use of the information to criminally investigate or prosecute any alcohol or drug abuse patient.TrihealthIn the event this information is protected by the Federal Confidentiality of Alcohol and Drug Abuse Patient Records regulations: The Federal rules restrict any use of the information to criminally investigate or prosecute any alcohol or drug abuse patient.TrihealthIn the event this information is protected by the Federal Confidentiality of Alcohol and Drug Abuse Patient Records regulations: The Federal rules restrict any use of the information to criminally investigate or prosecute any alcohol or drug abuse patient.TrihealthIn the event this information is protected by the Federal Confidentiality of Alcohol and Drug Abuse Patient Records regulations: The Federal rules restrict any use of the information to criminally investigate or prosecute any alcohol or drug abuse patient.TrihealthIn the event this information is protected by the Federal Confidentiality of Alcohol and Drug Abuse Patient Records regulations: The Federal rules restrict any use of the information to criminally investigate or prosecute any alcohol or drug abuse patient.TrihealthIn the event this information is protected by the Federal Confidentiality of Alcohol and Drug Abuse Patient Records regulations: The Federal rules restrict any use of the information to criminally investigate or prosecute any alcohol or drug abuse patient.TrihealthIn the event this information is protected by the Federal Confidentiality of Alcohol and Drug Abuse Patient Records regulations: The Federal rules restrict any use of the information to criminally investigate or prosecute any alcohol or drug abuse patient.TrihealthIn the event this information is protected by the Federal Confidentiality of Alcohol and Drug Abuse Patient Records regulations: The Federal rules restrict any use of the information to criminally investigate or prosecute any alcohol or drug abuse patient.TrihealthIn the event this information is protected by the Federal Confidentiality of Alcohol and Drug Abuse Patient Records regulations: The Federal rules restrict any use of the information to criminally investigate or prosecute any alcohol or drug abuse patient.TrihealthIn the event this information is protected by the Federal Confidentiality of Alcohol and Drug Abuse Patient Records regulations: The Federal rules restrict any use of the information to criminally investigate or prosecute any alcohol or drug abuse patient.TrihealthIn the event this information is protected by the Federal Confidentiality of Alcohol and Drug Abuse Patient Records regulations: The Federal rules restrict any use of the information to criminally investigate or prosecute any alcohol or drug abuse patient.TrihealthIn the event this information is protected by the Federal Confidentiality of Alcohol and Drug Abuse Patient Records regulations: The Federal rules restrict any use of the information to criminally investigate or prosecute any alcohol or drug abuse patient.TrihealthIn the event this information is protected by the Federal Confidentiality of Alcohol and Drug Abuse Patient Records regulations: The Federal rules restrict any use of the information to criminally investigate or prosecute any alcohol or drug abuse patient.TrihealthIn the event this information is protected by the Federal Confidentiality of Alcohol and Drug Abuse Patient Records regulations: The Federal rules restrict any use of the information to criminally investigate or prosecute any alcohol or drug abuse patient.TrihealthIn the event this information is protected by the Federal Confidentiality of Alcohol and Drug Abuse Patient Records regulations: The Federal rules restrict any use of the information to criminally investigate or prosecute any alcohol or drug abuse patient.TrihealthIn the event this information is protected by the Federal Confidentiality of Alcohol and Drug Abuse Patient Records regulations: The Federal rules restrict any use of the information to criminally investigate or prosecute any alcohol or drug abuse patient.TrihealthIn the event this information is protected by the Federal Confidentiality of Alcohol and Drug Abuse Patient Records regulations: The Federal rules restrict any use of the information to criminally investigate or prosecute any alcohol or drug abuse patient.TrihealthIn the event this information is protected by the Federal Confidentiality of Alcohol and Drug Abuse Patient Records regulations: The Federal rules restrict any use of the information to criminally investigate or prosecute any alcohol or drug abuse patient.TrihealthIn the event this information is protected by the Federal Confidentiality of Alcohol and Drug Abuse Patient Records regulations: The Federal rules restrict any use of the information to criminally investigate or prosecute any alcohol or drug abuse patient.TrihealthIn the event this information is protected by the Federal Confidentiality of Alcohol and Drug Abuse Patient Records regulations: The Federal rules restrict any use of the information to criminally investigate or prosecute any alcohol or drug abuse patient.TrihealthIn the event this information is protected by the Federal Confidentiality of Alcohol and Drug Abuse Patient Records regulations: The Federal rules restrict any use of the information to criminally investigate or prosecute any alcohol or drug abuse patient.TrihealthIn the event this information is protected by the Federal Confidentiality of Alcohol and Drug Abuse Patient Records regulations: The Federal rules restrict any use of the information to criminally investigate or prosecute any alcohol or drug abuse patient.TrihealthIn the event this information is protected by the Federal Confidentiality of Alcohol and Drug Abuse Patient Records regulations: The Federal rules restrict any use of the information to criminally investigate or prosecute any alcohol or drug abuse patient.TrihealthIn the event this information is protected by the Federal Confidentiality of Alcohol and Drug Abuse Patient Records regulations: The Federal rules restrict any use of the information to criminally investigate or prosecute any alcohol or drug abuse patient.TrihealthIn the event this information is protected by the Federal Confidentiality of Alcohol and Drug Abuse Patient Records regulations: The Federal rules restrict any use of the information to criminally investigate or prosecute any alcohol or drug abuse patient.TrihealthIn the event this information is protected by the Federal Confidentiality of Alcohol and Drug Abuse Patient Records regulations: The Federal rules restrict any use of the information to criminally investigate or prosecute any alcohol or drug abuse patient.TrihealthIn the event this information is protected by the Federal Confidentiality of Alcohol and Drug Abuse Patient Records regulations: The Federal rules restrict any use of the information to criminally investigate or prosecute any alcohol or drug abuse patient.[facility] Care Teams (unrecognized sec tion and content) Team MemberRelationshipSpecialtyStart DateEnd Date Humaira Gaviria MD [address] [place] [address] PCP - GeneralInternal Medicine07/05/18 Jonny Wilcox MD [address] [place] [address] Primary Staff PhysicianCardiology07/16/18Team MemberRelationshipSpecialtyStart DateEnd Date Humaira Gaviria MD [address] [place] [id number] PCP - GeneralInternal Medicine07/05/18 Jonny Wilcox MD [address] [place] [id number] Primary Staff PhysicianCardiology07/16/18Team MemberRelationshipSpecialtyStart DateEnd Date Humaira Gaviria MD [address] [facility] [place] [address] PCP - GeneralInternal Medicine07/05/18 Jonny Wilcox MD [address] [place] [address] Primary Staff PhysicianCardiology07/16/18Team MemberRelationshipSpecialtyStart DateEnd Date Humaira Gaviria MD [address] [facility] [place] [address] PCP - GeneralInternal Medicine07/05/18 Jonny Wilcox MD [address] [place] [address] Primary Staff PhysicianCardiology07/16/18Team MemberRelationshipSpecialtyStart DateEnd Date Humaira Gaviria MD [address] [place] [address] PCP - GeneralInternal Medicine07/05/18 Jonny Wilcox MD [address] [place] [address] Primary Staff PhysicianCardiology07/16/18 [place] [address] [place] [address] PhysicianHematology/Oncology09/14/21 Davida Restrepo, RN [address] [place] [address] Specialty Care CoordinatorHematology/Oncology09/14/21Team MemberRelationship SpecialtyStart DateEnd Date Penelope Casas [facility] [place] [address] PCP - GeneralFamily Medicine10/04/20Team MemberRelationshipSpecialtyStart DateEnd Date Humaira Gaviria MD [address] [facility] [place] [address] PCP - GeneralInternal Medicine07/05/18 Jonny Wilcox MD [address] [place] [address] Primary Staff PhysicianCardiology07/16/18 [place] [address] [place] [address] PhysicianHematology/Oncology09/14/21 Davida Restrepo, RN [address] [place] [address] Specialty Care CoordinatorHematology/Oncology09/14/21Te MemberRelationship SpecialtyStart DateEnd Date Penelope Casas, [address] [place] [address] PCP - GeneralFamily Wttnfjly13/3/22 Jonny Wilcox MD [address] [place] [address] Primary Staff PhysicianCardiology07/16/18 [place] [address] [place] [address] PhysicianHematology/Oncology09/14/21 Davida Restrepo, MARSHA [address] [place] [address] Specialty Care CoordinatorHematology/Oncology09/14/21Team MemberRelationship SpecialtyStart DateEnd Date Penelope Casas DO [address] [place] [address] PCP - GeneralFamily Piarytpn04/3/22 Jonny Wilcox MD [address] [place] [address] Primary Staff PhysicianCardiology07/16/18 [place] [address] [place] [address] PhysicianHematology/Oncology09/14/21 Davida Restrepo, RN [address] [place] [address] Specialty Care CoordinatorHematology/Oncology09/14/21Team MemberRelationship SpecialtyStart DateEnd Date Penelope Casas, DO [address] [place] [address] PCP - Generalmily Knhpycsc56/3/22 Jonny Wilcox MD [address] [place] [address] Primary Staff PhysicianCardiology07/16/18 [place] [address] [place] [address] PhysicianHematology/Oncology09/14/21 Davida Restrepo, RN [address] [place] [address] Specialty Care CoordinatorHematology/Oncology09/14/21Team MemberRelationship SpecialtyStart DateEnd Date Penelope Casas, DO [address] [place] [address] PCP - Generalmily Byyflbjw55/3/22 Jonny Wilcox MD [address] [place] [address] Primary Staff PhysicianCardiology07/16/18 [place] [address] [place] [address] PhysicianHematology/Oncology09/14/21 Davida Restrepo, RN [address] [place] [address] Specialty Care CoordinatorHematology/Oncology09/14/21Te MemberRelationship SpecialtyStart DateEnd Date Penelope Casas, DO [address] [place] [address] PCP - GeneralFamily Yvqpxevb16/3/22 Jonny Wilcox MD [address] [place] [address] Primary Staff PhysicianCardiology07/16/18 [place] [address] [place] [address] PhysicianHematology/Oncology09/14/21 Davida Restrepo, RN [address] [place] [address] Specialty Care CoordinatorHematology/Oncology09/14/21Te MemberRelationship SpecialtyStart DateEnd Date Penelope Casas, DO [address] [place] [address] PCP - Generalmily Yrarfcvp03/3/22 Jonny Wilcox MD [address] [place] [address] Primary Staff PhysicianCardiology07/16/18 [place] [address] [place] [address] PhysicianHematology/Oncology09/14/21 Davida Restrepo, RN [address] [place] [address] Specialty Care CoordinatorHematology/Oncology09/14/21Te MemberRelationship SpecialtyStart DateEnd Date Penelope Casas, DO [address] [facility] [place] [address] PCP - GeneralFaksly Gpbulsls85/3/22 Jonny Wilcox MD [address] [place] [address] Primary Staff PhysicianCardiology07/16/18 [place] [address] [place] [address] PhysicianHematology/Oncology09/14/21 Davida Restrepo, RN [address] [place] [address] Specialty Care CoordinatorHematology/Oncology09/14/21Te MemberRelationship SpecialtyStart DateEnd Date Penelope Casas, DO [address] [place] [address] PCP - [facility] Aqijbesh84/3/22 Jonny Wilcox MD [address] [place] [address] Primary Staff PhysicianCardiology07/16/18 [place] [address] [place] [address] PhysicianHematology/Oncology09/14/21 Davida Restrepo, RN [address] [place] [address] Specialty Care CoordinatorHematology/Oncology09/14/21Te MemberRelationship SpecialtyStart DateEnd Date Penelope Casas, DO [address] [place] [address] PCP - Generalmily Nvtktkfh88/3/22 Jonny Wilcox MD [address] [place] [address] Primary Staff PhysicianCardiology07/16/18 [place] [address] [place] [address] PhysicianHematology/Oncology09/14/21 Davida Restrepo RN [address] [place] [address] Specialty Care CoordinatorHematology/Oncology09/14/21Team MemberRelationship SpecialtyStart DateEnd Date Penelope Casas DO [address] [facility] [place] [address] PCP - Generalmily Dpypsvfh10/3/22 Jonny Wilcox MD [address] [place] [address] Primary Staff PhysicianCardiology07/16/18 [place] [address] [place] [address] PhysicianHematology/Oncology09/14/21 Davida Restrepo RN [address] [place] [address] Specialty Care CoordinatorHematology/Oncology09/14/21Te MemberRelationship SpecialtyStart DateEnd Date Penelope Casas DO [address] [facility] [place] [address] PCP - Generalmily Obxxnaej07/3/22 Jonny Wilcox MD [address] [place] [address] Primary Staff PhysicianCardiology07/16/18 Cosmo Elliott [place] [address] [place] [address] PhysicianHematology/Oncology09/14/21 Davida Restrepo RN [address] [place] [address] Specialty Care CoordinatorHematology/Oncology09/14/21Team MemberRelationship SpecialtyStart DateEnd Date Penelope Casas DO [address] [facility] [place] [address] PCP - [facility]Aust[facility] Vgmbzgab66/3/22 Jonny Wilcox MD [address] [place] [address] Primary Staff PhysicianCardiology07/16/18 [place] [address] [place] [address] PhysicianHematology/Oncology09/14/21 Davida Restrepo RN [address] [place] [address] Specialty Care CoordinatorHematology/Oncology09/14/21Team MemberRelationship SpecialtyStart DateEnd Date Penelope Casas DO [address] [facility] [place] [address] PCP - Generalmily Ladyadnk43/3/22 Jonny Wilcox MD [address] [place] [address] Primary Staff PhysicianCardiology07/16/18 [place] [address] [place] [address] PhysicianHematology/Oncology09/14/21 Davida Restrepo, RN [address] [place] [address] Specialty Care CoordinatorHematology/Oncology09/14/21Team MemberRelationship SpecialtyStart DateEnd Date Penelope Casas DO [address] [place] [address] PCP - GeneralFamily Ujubmcor52/3/22 Jonny Wilcox MD [address] [place] [address] Primary Staff PhysicianCardiology07/16/18 [place] [address] [place] [address] PhysicianHematology/Oncology09/14/21 Davida Restrepo, RN [address] [place] [address] Specialty Care CoordinatorHematology/Oncology09/14/21Te MemberRelationship SpecialtyStart DateEnd Date Penelope Casas DO [address] [place] [address] PCP - GeneralFamily Ebtmkqnd08/3/22 Jonny Wilcox MD [address] [place] [address] Primary Staff PhysicianCardiology07/16/18 [place] [address] [place] [address] PhysicianHematology/Oncology09/14/21 Davida Restrepo RN [address] [place] [address] Specialty Care CoordinatorHematology/Oncology09/14/21Team MemberRelationship SpecialtyStart DateEnd Date Penelope Casas DO [address] [place] [address] PCP - Generalmi Zrognugj87/3/22 Jonny Wilcox MD [address] [place] [address] Primary Staff PhysicianCardiology07/16/18 [place] [address] [place] [address] PhysicianHematology/Oncology09/14/21 Davida Restrepo RN [address] [place] [address] Specialty Care CoordinatorHematology/Oncology09/14/21Te MemberRelationship SpecialtyStart DateEnd Date Penelope Casas DO [address] [place] [address] PCP - [facility]Aust[facility] Mkyjuhbh09/3/22 Jonny Wilcox MD [address] [place] [address] Primary Staff PhysicianCardiology07/16/18 [place] [address] [place] [address] PhysicianHematology/Oncology09/14/21 Davida Restrepo RN [address] [place] [address] Specialty Care CoordinatorHematology/Oncology09/14/21Team MemberRelationship SpecialtySeminole DateEnd Penelope Casas DO [address] [place] [address] PCP - GeneralFamily Euwehvzt68/3/22 Jonny Wilcox MD [address] [place] [address] Primary Staff PhysicianCardiology07/16/18 [place] [address] [place] [address] PhysicianHematology/Oncology09/14/21 Davida Restrepo RN [address] [place] [address] Specialty Care CoordinatorHematology/Oncology09/14/21Team MemberRelationship SpecialtyStart DateEnd Date Penelope Casas DO [address] [place] [address] PCP - GeneralFamily Cjabfiut65/3/22 Jonny Wilcox MD [address] [place] [address] Primary Staff PhysicianCardiology07/16/18 [place] [address] [place] [address] PhysicianHematology/Oncology09/14/21 Davida Restrepo RN [address] [place] [address] Specialty Care CoordinatorHematology/Oncology09/14/21Team MemberRelationship SpecialtyStart DateEnd Date Penelope Casas DO [address] [place] [address] PCP - [facility]Aust[facility] Hnhjnsjo44/3/22 Jonny Wilcox MD [address] [place] [address] Primary Staff PhysicianCardiology07/16/18 [place] [address] [place] [address] PhysicianHematology/Oncology09/14/21 Davida Restrepo, RN [address] [place] [address] Specialty Care CoordinatorHematology/Oncology09/14/21Team MemberRelationship SpecialtyStart DateEnd Date Penelope Casas DO [address] [facility] [place] [address] PCP - [facility] Gkbsnkfh42/3/22 Jonny Wilcox MD [address] [place] [address] Primary Staff PhysicianCardiology07/16/18 [place] [address] [place] [address] PhysicianHematology/Oncology09/14/21 Davida Restrepo RN [address] [place], [place] 2496695 Specialty Care CoordinatorHematology/Oncology09/14/21Team MemberRelationship SpecialtyStart DateEnd Date Penelope Casas DO [address] [place] [address] PCP - GeneralFamily Duissgwm35/3/22 Jonny Wilcox MD [address] [place] [address] Primary Staff PhysicianCardiology07/16/18 [place] [address] [place] [address] PhysicianHematology/Oncology09/14/21 Davida Restrepo, RN [address] [place] [address] Specialty Care CoordinatorHematology/Oncology09/14/21Team MemberRelationship SpecialtyStart DateEnd Date Penelope Casas DO [address] [place] [address] PCP - GeneralFamily Pngjisfh49/3/22 Jonny Wilcox MD [address] [place] [address] Primary Staff PhysicianCardiology07/16/18 [place] [address] [place] [address] PhysicianHematology/Oncology09/14/21 Davida Restrepo, RN [address] [place] [address] Specialty Care CoordinatorHematology/Oncology09/14/21Team MemberRelationship SpecialtyStart DateEnd Date Penelope Casas DO [address] [place] [address] PCP - GeneralFamily Turidlxd90/3/22 Jonny Wilcox MD [address] [place] [address] Primary Staff PhysicianCardiology07/16/18 [place] [address] [place], [place] [address]695306 PhysicianHematology/Oncology09/14/21 Davida Restrepo, MARSHA [address] [place] [address] Specialty Care CoordinatorHematology/Oncology09/14/21Team MemberRelationship SpecialtyStart DateEnd Date Penelope Casas MD [address] [place] [id number] PCP - Generalmily Medicine11/07/23Team MemberRelationshipSpecialtyStart DateEnd Date Penelope Casas MD [address] [place] [address] PCP - GeneralFamily Medicine11/07/23Team MemberRelationshipSpecialtyStart DateEnd Date Penelope Casas MD [address] [place] [address] PCP - GeneralFamily Medicine11/07/23Team MemberRelationshipSpecialtyStart DateEnd Date Penelope Casas MD [address] [place] [address] PCP - GeneralFamily Medicine11/07/23Team MemberRelationshipSpecialtyStart DateEnd Date Penelope Casas MD [address] [facility] [place] [address] PCP - Generalmily Medicine11/07/23 Team Status: Inactive Member Role Status Dates Wilton Herrmann DO Attending Provider Active Start : May 10, 2024 End: May 10, 2024Team MemberRelationshipSpecialtyStart DateEnd Date Penelope Casas DO [address] [facility] [place] [address] PCP - GeneralFamily Mjhodrkp43/3/22 Jonny Wilcox MD [address] [place] [address] Primary Staff PhysicianCardiology07/16/18 [place] [address] [place] [address] PhysicianHematology/Oncology09/14/21 Davida Restrepo, MARSHA [address] [place] [address] Specialty Care CoordinatorHematology/Oncology09/14/21Team MemberRelationship SpecialtyStart DateEnd Date Penelope Casas MD [address] [facility] [place] [address] PCP - Generalmily Medicine11/07/23Team MemberRelationshipSpecialtyStart DateEnd Date Penelope Casas MD [address] [place] [address] PCP - Generalmily Medicine11/07/23Team MemberRelationshipSpecialtyStart DateEnd Date Penelope Casas MD [address] [place] [address] PCP - GeneralFamily Medicine11/07/23Team MemberRelationshipSpecialtyStart DateEnd Date Penelope Casas MD [address] [place] [address] PCP - Generalmily Medicine11/07/23Team MemberRelationshipSpecialtyStart DateEnd Date Penelope Casas DO [address] [place] [address] PCP - GeneralFamily Cmxilhry18/3/22 Jonny Wilcox MD [address] [place] [address] Primary Staff PhysicianCardiology07/16/18 [place] [address] [place] [address] PhysicianHematology/Oncology09/14/21 Davida Restrepo, RN [address] [place] [address] Specialty Care CoordinatorHematology/Oncology09/14/21Team MemberRelationship SpecialtyStart DateEnd Date Penelope Casas MD [address] [place] [address] PCP - Generalmily Medicine11/07/23Team MemberRelationshipSpecialtyStart DateEnd Date Penelope Casas MD [address] [place] [address] PCP - Generalmily Medicine11/07/23Team MemberRelationshipSpecialtyStart DateEnd Date Penelope Casas DO PCP - [facility]07/07/19Team MemberRelationshipSpecialtyStart DateEnd Date Penelope Casas DO PCP - [facility]07/07/19Team MemberRelationshipSpecialtyStart DateEnd Date Penelope Casas MD [address] [place] [address] PCP - [facility] Medicine11/07/23Team MemberRelationshipSpecialtyStart DateEnd Date Penelope Casas DO PCP - [facility] Medicine07/07/19Team MemberRelationshipSpecialtyStart DateEnd Date Penelope Casas DO PCP - [facility] Medicine07/07/19Team MemberRelationshipSpecialtyStart DateEnd Date Penelope Casas DO [address] [place] [address] PCP - [facility] Smrzkjrc00/3/22 Jonny Wilcox MD [address], [place] [address] Primary Staff PhysicianCardiology07/16/18 [place] [address] [place] [address] PhysicianHematology/Oncology5/18/22 Davida Restrepo, RN [address] [place] [address] Specialty Care CoordinatorHematology/Oncology09/14/21Team MemberRelationship SpecialtyStart DateEnd Date Penelope Casas DO PCP - GeneralFamily Medicine07/07/19Team MemberRelationshipSpecialtyStart DateEnd Date Penelope Casas MD [address] [place] [address] PCP - GeneralFamily Medicine11/07/23Team MemberRelationshipSpecialtyStart DateEnd Date Penelope Casas MD [address] [place] [address] PCP - [facility]11/07/23Team MemberRelationshipSpecialtyStart DateEnd Date Penelope Casas DO PCP - GeneralFamily Medicine07/07/19Team MemberRelationshipSpecialtyStart DateEnd Date Penelope Casas DO PCP - GeneralFamily Medicine07/07/19Team MemberRelationshipSpecialtyStart DateEnd Date Penelope Casas MD [address] [place] [address] PCP - [facility] Medicine11/07/23Team MemberRelationshipSpecialtyStart DateEnd Date Penelope Casas MD [address] [place] [address] PCP - GeneralFamily Medicine11/07/23Team MemberRelationshipSpecialtyStart DateEnd Date Penelope Casas DO PCP - GeneralFamily Medicine07/07/19Team MemberRelationshipSpecialtyStart DateEnd Date Penelope Casas DO [address] [place] [address] PCP - GeneralFamily Lktutdeb09/3/22 Jonny Wilcox MD [address] [place] [address] Primary Staff PhysicianCardiology07/16/18 [place] [address] [place] [address] PhysicianHematology/Oncology09/14/21 Davida Restrepo, RN [address] [place] [address] Specialty Care CoordinatorHematology/Oncology09/14/21Team MemberRelationship SpecialtyStart DateEnd Date Penelope Casas DO PCP - GeneralFamily Medicine07/07/19Team MemberRelationshipSpecialtyStart DateEnd Date Penelope Casas DO PCP - GeneralFamily Medicine07/07/19Team MemberRelationshipSpecialtyStart DateEnd Date Penelope Casas DO PCP - GeneralFamily Medicine07/07/19Team MemberRelationshipSpecialtyStart DateEnd Date Penelope Casas DO PCP - GeneralFamily Medicine07/07/19Team MemberRelationshipSpecialtyStart DateEnd Date Penelope Casas DO PCP - GeneralFamily Medicine07/07/19am MemberRelationshipSpecialtyStart DateEnd Date Penelope Casas MD [address] [place] [address] PCP - GeneralFamily Medicine11/07/23Team MemberRelationshipSpecialtyStart DateEnd Date Penelope Casas DO PCP - GeneralFamily Medicine07/07/19 MemberRelationshipSpecialtyStart DateEnd Date Penelope Casas DO PCP - GeneralFamily Medicine07/07/19 MemberRelationshipSpecialtyStart DateEnd Date Penelope Casas DO PCP - GeneralFamily Medicine07/07/19 MemberRelationshipSpecialtyStart DateEnd Date Penelope Casas MD [address] [place] [address] PCP - GeneralFamily Medicine11/07/23Team MemberRelationshipSpecialtyStart DateEnd Date Penelope Casas DO PCP - GeneralFamily Medicine07/07/19Team MemberRelationshipSpecialtyStart DateEnd Date Penelope Casas DO PCP - GeneralFamily Medicine07/07/19Team MemberRelationshipSpecialtyStart DateEnd Date Penelope Casas MD [address] [place] [address] PCP - Generalmily Medicine11/07/23Team MemberRelationshipSpecialtyStart DateEnd Date Penelope Casas MD [address] [place] [address] PCP - [facility] Medicine11/07/23Team MemberRelationshipSpecialtyStart DateEnd Date Penelope Casas MD [address] [place] [address] PCP - [facility] Medicine11/07/23Team MemberRelationshipSpecialtyStart DateEnd Date Penelope Casas MD [address] [place] [address] PCP - Generalmily Medicine11/07/23Team MemberRelationshipSpecialtyStart DateEnd Date Penelope Casas MD [address] [place] [address] PCP - [facility] Medicine11/07/23Team MemberRelationshipSpecialtyStart DateEnd Date Penelope Casas MD [address] [place] [address] PCP - Generalmily Medicine7/10/24 Reason for Visit (unrecogniz ed section and content) ReasonCommentsFuture AppointmentReasonCommentsPatient QuestionReasonComments Medication QuestionReasonOnset DateCommentsRefill Tndhmbk07/13/2022ReasonOnset DateCommentsRefill Hrhgrvl03/02/2022ReasonCommentsHypercoagulable state6 month follow upReasonCommentsPrimary hypercoagulable state8 week follow upReason CommentsResultsReasonCommentsAppointmentPatient QuestionMedication Question OrdersSpecialtyDiagnoses / ProceduresReferred By ContactReferred To Contact Diagnoses Iron deficiency anemia secondary to blood loss (chronic) Iron deficiency anemia of Procedures INJECTION, FERRIC DERISOMALTOSE, 10 MG Kristofer Calix MD [address] [place] [address] [place] [address] [address] [place] [address] Referral IDStatusReasonStart DateExpiration DateVisits RequestedVisits [id number]/[id number] Request SpecialtyDiagnoses / ProceduresReferred By ContactReferred To Contact Diagnoses Iron deficiency anemia secondary to blood loss (chronic) Iron deficiency anemia of Procedures IRON SUCROSE INJECTION PER 1 MG Kristofer Calix MD [address] [place] [address] [place] [address] [address] [place] [id number] Referral IDStatusReasonStglendale DateExpiration DateVisits RequestedVisits [id number]/28/20221/1/[id number] DateCommentsRefill Akwvoer3607/03/2022ReasonCommentsAnemiaFollow upReasonCommentsOrdersReason CommentsEstablished PatientReasonCommentsAppointmentReasonCommentsLab Orders ReasonCommentsPrimary hypercoagulable state (HCC)Follow upReasonComments Appointment RescheduledSpecialtyDiagnoses / ProceduresReferred By Contact Referred To Contact Diagnoses Iron deficiency anemia of Iron deficiency anemia secondary to blood loss (chronic) Procedures IRON SUCROSE INJECTION PER 1 MG Kristofer Calix MD [address] [facility] [address] [address] [place] [address] [facility] [place] [address] Referral IDStatusReasonStart DateExpiration DateVisits RequestedVisits [id number]/[id number] DateCommentsRefill Rdoizdi3911/29/2023easonCommentsAmenorrheaReasonOnset DateCommentsRefill Request 04/28/2024easonCommentsRoutine VisitReasonCommentsPatient UpdateReason CommentsAnemiafollowupReasonCommentsfollow up miscarriageReasonCommentsVaginal BleedingDizzinessReasonCommentsIrregular CyclesReasonOnset DateCommentsRefill Qtwxbnz5807/25/2024ReasonOnset DateCommentsRefill Jolyyfb1810/20/2024ReasonOnset DateCommentsRefill Qdmhjqw9610/29/2024ReasonCommentsGestational DiabetesSpecialty Diagnoses / ProceduresReferred By ContactReferred To ContactMaternal and Medicine Diagnoses Gestational diabetes mellitus (GDM), antepartum, gestational diabetes method of control unspecified Wilton Herrmann, DO [address] [place] [address] [place] [address] Phone: tel: fax: M[facility]- [facility] at [facility] [address] [place] [address] Phone: tel: fax: Referral IDStatusReasonStart DateExpiration DateVisits RequestedVisits [id number] Review Specialty Services Required [id number]ljxrt stateAnemia8 week follow up ReasonCommentsMFM consultReasonCommentsRoutine VisitReasonComments [...] BE BASED ON THE PRIMARY CLINICAL RECORDS. [employer] [facility]. provides no warranty or guarantee of the accuracy or completeness of information in this document.
--- NOTE | 2025-03-05 19:13 | US_ITS ---
[place] [id number] Patient Name: MADHU RENDON MRN: [id number] date: 1985 Sex: F Assigned Patient Location: [facility] Current Patient Location: Accession/Order Number: [id number] Exam Date: 03/05/2025 19:15 Report Date: 03/06/2025 08:10 At the request of: MYA MASSEY DO Procedure: US OB BPP w non-stress BIOPHYSICAL PROFILE: CLINICAL INFORMATION: THIRD TRIMESTER Z34.93 COMPARISON: 02/26/2025 There is a single live intrauterine gestation in cephalic presentation. The reported gestational age is 31 weeks 3 days. The heart rate measures 159 beats per minute. FINDINGS: TONE: 1 or more episodes of activity extension and flexion of extremity or opening and closing of the hand [Y] 2/2 GROSS BODY MOVEMENTS: 3 or more discrete body or limb movements [Y] 2/2 BREATHING MOVEMENTS: 1 or more episodes of breathing lasting at least 30 seconds [Y] 2/2 SARAHI: A single deepest vertical pocket of amniotic fluid greater than 2 cm [Y] 2/2 SARAHI: 12.6 cm Total score: 8/8 US/US OB BPP w non-stress IMPRESSION: NORMAL BIOPHYSICAL PROFILE. Impression dictated by: Pamela Pisano M.D. 03/06/2025 8:10 AM Dictation Location: [place] [address] Electronically authenticated by: [id number] Y Date: 03/06/2025 08:10
[2025-03-05 19:47] VITALS: BP 116/62; PULSE 78
== END 2025-03-05 20:28 | disposition home or self-care (01) ==
LOC: US 19:05 → FBC 19:11
PROVIDERS: Visit Provider Obstetrics & Gynecology
DX: O24.419 Gestational diabetes mellitus in pregnancy, unspecified control (principal); Z3A.31 31 weeks gestation of pregnancy
CPT/HCPCS: 76818

== ENCOUNTER 2025-03-09 17:56 | Outpatient (OUT) | payer MEDICAID, SELFPAY ==
--- OUTSIDE RECORDS SUMMARY | 2025-02-09 09:30 | XMS_ITS | Encounter Summary ---
Author Organization [facility] Address [address] [place] [address] Care Team Providers Care Rock Dust Sprayer Name Role Phone Evans Casas MD Primary Care Provider [phone] Reason for Visit * ReasonCommentsRoutine Visit Encounter Details DateTypeDepartmentCare Team (Latest Contact Info)Pntknptdrke97/13/2025 10:30 AM EDTRoutine [facility] [address] [place] [phone] Wilton Herrmann DO [address] [place] [id number] Third trimester ([facility]); 28 weeks gestation of ([facility]); Anemia complicating childbirth ([facility]); Anticoagulant long-term use; Antiphospholipid antibody positive; Blood pressure elevated without history of HTN; Coagulation defect, unspecified ([facility]) Social History Tobacco UseTypesPacks/DayYears UsedDateSmoking Tobacco: NeverSmokeless Tobacco: NeverAlcohol UseStandard Drinks/WeekCommentsNever0 (1 standard drink = 0.6 oz pure alcohol)PHQ-2AnswerDate RecordedPatient Health Questionnaire-2 Score0 01/06/2025Estimated Date of KnllufqdQeqtgqprCis06/05/2026ased on last menstrual period of 07/28/2024Sex and Gender InformationValueDate RecordedSex Assigned at BirthNot on fileLegal EfjEsdbxm85/15/2023 11:19 PM EDTGender IdentityNot on fileSexual OrientationNot on filedocumented as of this encounter Last Filed Vital Signs Vital SignReadingTime TakenCommentsBlood Vclypeom618/7610 10:45 AM EDT Pulse--Temperature--Respiratory Rate--Oxygen Saturation--Inhaled Oxygen Concentration--Bcyacq01.9 kg (211 lb 6.4 oz)02/09/2025 10:45 AM EDTHeight--Body Mass Index34.1207 1:48 PM EDTdocumented in this encounter Progress Notes * Rosi Murray, DEB - 02/09/2025 10:30 AM EDT Reason for Appointment: Patient ID: Sanna Bone is a 39 y.o. female who presents for Routine Visit Patient presents today for Return OB appointment. MEDICATIONS Current Outpatient Medications Medication Instructions Alcohol Swabs (Alcohol Prep Pad) 70 % pads 1 Pad, Topical, Daily, Use four times daily to check FSBS. Blood Glucose Monitoring Suppl ([employer] Glucometer) w/Device kit 1 kit, Does not apply, Daily, Use four times daily to check FSBS. In the morning prior to breakfast & 1 hour after each meal for a total of 4times daily. docusate sodium (COLACE) 100 mg, 2 times daily enoxaparin (Lovenox) 40 MG/0.4ML injection Every 24 hours Enoxaparin Sodium (LOVENOX) 40 mg, Injection, Daily fluticasone (Flonase) 50 MCG/ACT nasal spray 1 spray, Each Nostril, Daily, Shake gently. Before first use, prime pump. After use, clean tip and replace cap. levothyroxine (SYNTHROID) 25 mcg, Oral, Daily before breakfast metFORMIN XR (GLUCOPHAGE-XR) 1,500 mg, Oral, Daily with evening meal, Do not crush, chew, or split. Multiple Vitamin (Multi-Vitamin) tablet 1 tablet, Daily RT polyethylene glycol (PEG) 3350 (GLYCOLAX) 17 g, Daily ALLERGIES Allergies Allergen Reactions Ciprofloxacin GI intolerance Ciprofloxacin-Fluocinolone Pf Other Reaction(s): Other: See Comments Dizziness, weakness sweating Lactose Other Reaction(s): GI Disturbance, GI Upset Diarrhea Diarrhea Lactose Intolerance (Gi) Other Reaction(s): Illness Octacosanol Other Reaction(s): Other (See Comments) Other Other seasonal Other Reaction(s): Other (See Comments) PROBLEMS Active Ambulatory Problems Diagnosis Date Noted 32 weeks gestation of ([facility]) 11/28/2019 Abdominal pain 06/12/2023 Acute bronchitis due to infection 06/12/2023 Acute on chronic vesicular eczema of hands and feet 11/15/2023 Anemia complicating childbirth ([facility]) 01/16/2020 Anticoagulant long-term use 02/22/2020 Antiphospholipid antibody positive 09/10/2017 Antiphospholipid antibody syndrome ([facility]) 07/07/2019 Anxiety 06/12/2023 Blood pressure elevated without history of HTN 11/15/2023 BMI 37.0-37.9, adult 11/15/2023 Cerebral infarction, unspecified ([facility]) 05/16/2019 Cerebrovascular accident (CVA) due to stenosis of middle cerebral artery ([facility]) 02/22/2020 Cervicalgia 02/05/2019 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 ([facility]) 01/08/2020 Coagulation defect, unspecified ([facility]) 02/05/2019 Cold intolerance 11/15/2023 Deficiency of other specified B group vitamins 05/16/2019 Deviated septum 11/15/2023 Dizziness and giddiness 02/05/2019 Dry mouth 11/15/2023 Dysfunction of eustachian tube 06/12/2023 Dyspnea 06/12/2023 Elevated blood pressure reading 11/15/2023 Encounter for supervision of normal , unspecified, first trimester ([facility]) 05/29/2019 Environmental allergies 11/15/2023 Fatigue 12/29/2016 First degree perineal laceration during delivery ([facility]) 01/16/2020 Frequency of micturition 02/19/2019 Genitourinary symptoms 08/19/2021 Gestational diabetes mellitus (GDM), antepartum ([facility]) 01/26/2022 H/O: hypothyroidism 11/15/2023 Hematochezia 06/12/2023 History [...] anemia 01/16/2020 Irregular uterine bleeding 11/15/2023 problem ([facility]) 06/12/2023 Less than 8 weeks gestation of ([facility]) 06/05/2019 skilled nursing (current) use of 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/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 02/05/2019 Migraine without aura and without status migrainosus, not intractable 09/12/2017 Morbid obesity ([facility]) 11/15/2023 Muscle fasciculation 08/19/2021 Nasal polyps 11/15/2023 Non-smoker 11/15/2023 NEETA (obstructive sleep apnea) 11/15/2023 Other acute postprocedural pain 02/03/2019 Other general symptoms and signs 10/28/2019 Other immediate hemorrhage ([facility]) 01/16/2020 Other specified noninflammatory disorders of vagina 02/21/2019 Pain in joint 12/29/2016 Palpitations 08/26/2019 Paresthesia of bilateral legs 11/15/2023 Pelvic and perineal pain 02/01/2019 Personal history of urinary (tract) infections 01/16/2020 Pre-diabetes 11/15/2023 Primary hypercoagulable state ([facility]) 08/01/2022 Pruritus, unspecified 01/02/2020 Psychogenic hyperventilation 06/12/2023 Raised antibody titer 09/25/2017 Right lower quadrant pain 11/15/2023 Right otitis externa 11/15/2023 Salivary gland swelling 11/15/2023 Single live ([facility]) 01/15/2020 Snoring 11/15/2023 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) 12/30/2019 Suspected severe acute respiratory syndrome coronavirus 2 (SARS-CoV-2) infection 06/12/2023 SVT (supraventricular tachycardia) ([facility]) 08/26/2019 Syncope and collapse 06/03/2018 Other bacterial infections of unspecified site 06/27/2019 Thrombocytopenia, unspecified 11/20/2019 Hypoglycemia 06/12/2023 Unspecified condition associated with female genital organs and menstrual cycle 05/09/2019 Unspecified ovarian cyst, right side 02/06/2019 Urinary tract infection 10/16/2019 Referred otalgia of right ear 11/19/2023 LPRD (laryngopharyngeal reflux disease) 11/19/2023 H/O loss 01/05/2025 Multigravida of advanced maternal age in second trimester ([facility]) 01/05/2025 Thyroid disease 01/05/2025 Resolved Ambulatory Problems Diagnosis Date Noted No [...] drainage of cyst WISDOM TOOTH EXTRACTION 2007 [place] teeth REVIEW OF SYSTEMS Review of Systems: [...] nursing note reviewed. Exam conducted with a cardroom plastic card grader present. Vitals: Estimated body mass index is 34.12 kg/m?? as calculated from the following: Height as of 11/19/23: 5' 6 . Weight as of this encounter: 211 lb 6.4 oz. BP: 124/76 Patient's last menstrual period was 07/28/2024. ASSESSMENT & PLAN ICD-10-CM 1. Third trimester ([facility]) Z34.93 2. 28 weeks gestation of ([facility]) Z3A.28 CBC and differential POCT urinalysis dipstick manually resulted Patient presents today for a routine obstetrics appointment. Patient is currently 28w0d with a Estimated Date of Delivery: 05/04/25. Discussed plan for lovenox and last dose of lovenox would be Sunday04/17/25 and patient is having IOL on 04/19/25. Patient to start NST/BPP weekly now until 32 weeks gestation, then will have NST twice weekly and BPP weekly from 32 weeks gestation until delivery. Patient also given growth scan to be done every 4 weeks from now until delivery. Patient givenorders and they were also faxed to [facility] and [facility] Scheduling. Patient to return to clinic in 2 weeks for routine OB appointment. Documented by Rosi Murray LPN on behalf of: Wilton Herrmann DO documented in this encounter Plan of Treatment DateTypeDepartmentCare Team (Latest Contact Info)Erdnflddbrg64/11/2025 9:50 AM ESTRoutine [facility] [address] [place] [phone] Wilton Herrmann DO [address] [place] [address] NameTypePriorityAssociated DiagnosesOrder ScheduleCBC and differentialLabRoutine 28 weeks gestation of ([facility]) Ordered: 02/09/2025US OB follow up transabdominal approachImagingRoutine Third trimester ([facility]) 28 weeks gestation of ([facility]) Anemia complicating childbirth ([facility]) Anticoagulant long-term use Antiphospholipid antibody positive Blood pressure elevated without history of HTN Coagulation defect, unspecified ([facility]) Expected: 02/09/2025, Expires: 06/12/2025US biophysical profile w non stress testImagingRoutine Third trimester ([facility]) 28 weeks gestation of ([facility]) Anemia complicating childbirth ([facility]) Anticoagulant long-term use Antiphospholipid antibody positive Blood pressure elevated without history of HTN Coagulation defect, unspecified ([facility]) Expected: 02/09/2025 (Approximate), Expires: 08/10/2025documented as of this encounter Procedures Procedure NamePriorityDate/TimeAssociated DiagnosisCommentsPOCT URINALYSIS VSAJWBNPOaqcnbs57/13/2025 10:55 AM EDT 28 weeks gestation of ([facility]) documented in this encounter Results * (ABNORMAL) POCT urinalysis dipstick manually resulted (02/09/2025 10:55 AM EDT)ComponentValueRef RangeTest MethodAnalysis TimePerformed AtPathologist SignatureColor, UAYellowClarity, UAClearGlucose, UANegativeNegative - 2000(110) ++++ mg/dLBilirubin, UANegativeNegative - 4(70) +++ mg/dLKetones, UA NegativeNegative - 160(16) ++++ mg/dLSpec Grav, UA1.0051 - 1.03Blood, UA NegativeNegative - 50 Max/mcLpH, UA6.55 - 9Protein, UANegativeNegative - 2000(20) ++++ mg/dLUrobilinogen, UA2.00.2 - 12 mg/dLLeukocytes, UATrace Negative - 500+++ John/mcLNitrite, UANegativeNegative - PositiveSpecimen (Source)Anatomical Location / LateralityCollection Method / VolumeCollection TimeReceived HrdjWwcfv23/13/2025 10:55 AM EDT Narrative Authorizing ProviderResult TypeResult StatusCorey Montez DOPOINT OF CARE TEST ENTER/EDIT ORDERABLESFinal Result documented in this encounter Visit Diagnoses Diagnosis Third trimester ([facility]) state, incidental 28 weeks gestation of ([facility]) Anemia complicating childbirth ([facility]) Anticoagulant long-term use Encounter for long-term (current) use of anticoagulants Antiphospholipid antibody positive Other and unspecified nonspecific immunological findings Blood pressure elevated without history of HTN Coagulation defect, unspecified ([facility]) documented in this encounter Care Teams Team MemberRelationshipSpecialtyStart DateEnd Date Evans Casas MD [address] [place] [address] PCP - GeneralFamily Medicine11/07/23documented as of this encounter
--- OUTSIDE RECORDS SUMMARY | 2025-02-23 08:00 | XMS_ITS | Encounter Summary ---
Author Organization [facility] Address [address] [place] [address] Care Team Providers Care Window Tinter Name Role Phone Evans Casas MD Primary Care Provider [phone] Reason for Visit * ReasonCommentsRoutine Visit Encounter Details DateTypeDepartmentCare Team (Latest Contact Info)Hojhslzxrci45/27/2025 9:00 AM EDTRoutine [facility] [address] [place] [phone] Wilton Herrmann DO [address] [place], [place] [id number] Third trimester ([facility]); 30 weeks gestation of ([facility]) Social History Tobacco UseTypesPacks/DayYears UsedDateSmoking Tobacco: NeverSmokeless Tobacco: NeverAlcohol UseStandard Drinks/WeekCommentsNever0 (1 standard drink = 0.6 oz pure alcohol)PHQ-2AnswerDate RecordedPatient Health Questionnaire-2 Score0 01/06/2025Estimated Date of QnqresswZmevvxwbRsd04/05/2026ased on last menstrual period of 07/28/2024Sex and Gender InformationValueDate RecordedSex Assigned at BirthNot on fileLegal NcyCthktr24/15/2023 11:19 PM EDTGender IdentityNot on fileSexual OrientationNot on filedocumented as of this encounter Last Filed Vital Signs Vital SignReadingTime TakenCommentsBlood Hzvfsopw706/7202/23/2025 9:26 AM EDT Pulse--Temperature--Respiratory Rate--Oxygen Saturation--Inhaled Oxygen Concentration--Xkrris90.5 kg (210 lb 8 oz)02/23/2025 9:26 AM [...] to check FSBS. Blood Glucose Monitoring Suppl (D-M86 Security Glucometer) w/Device kit 1 kit, Does not [...] Diagnosis Date Noted 32 weeks gestation of ([facility]) 11/28/2019 Abdominal pain 06/12/2023 Acute bronchitis due to infection 06/12/2023 Acute on chronic vesicular eczema of hands and feet 11/15/2023 Anemia complicating childbirth ([facility]) 01/16/2020 Anticoagulant long-term use 02/22/2020 Antiphospholipid antibody positive 09/10/2017 Antiphospholipid antibody syndrome ([facility]) 07/07/2019 Anxiety 06/12/2023 Blood pressure elevated without history of HTN 11/15/2023 BMI 37.0-37.9, adult 11/15/2023 Cerebral infarction, unspecified ([facility]) 05/16/2019 Cerebrovascular accident (CVA) due to stenosis of middle cerebral artery ([facility]) 02/22/2020 Cervicalgia 02/05/2019 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 ([facility]) 01/08/2020 Coagulation defect, unspecified ([facility]) 02/05/2019 Cold intolerance 11/15/2023 Deficiency of other specified B group vitamins 05/16/2019 Deviated septum 11/15/2023 Dizziness and giddiness 02/05/2019 Dry mouth 11/15/2023 Dysfunction of eustachian tube 06/12/2023 Dyspnea 06/12/2023 Elevated blood pressure reading 11/15/2023 Encounter for supervision of normal , unspecified, first trimester ([facility]) 05/29/2019 Environmental allergies 11/15/2023 Fatigue 12/29/2016 First degree perineal laceration during delivery ([facility]) 01/16/2020 Frequency of micturition 02/19/2019 Genitourinary symptoms 08/19/2021 Gestational diabetes mellitus (GDM), antepartum ([facility]) 01/26/2022 H/O: hypothyroidism 11/15/2023 Hematochezia 06/12/2023 History [...] anemia 01/16/2020 Irregular uterine bleeding 11/15/2023 problem ([facility]) 06/12/2023 Less than 8 weeks gestation of ([facility]) 06/05/2019 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/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 02/05/2019 Migraine without aura and without status migrainosus, not intractable 09/12/2017 Morbid obesity ([facility] 11/15/2023 Muscle fasciculation 08/19/2021 Nasal polyps 11/15/2023 Non-smoker 11/15/2023 NEETA (obstructive sleep apnea) 11/15/2023 Other acute postprocedural pain 02/03/2019 Other general symptoms and signs 10/28/2019 Other immediate hemorrhage ([facility]) 01/16/2020 Other specified noninflammatory disorders of vagina 02/21/2019 Pain in joint 12/29/2016 Palpitations 08/26/2019 Paresthesia of bilateral legs 11/15/2023 Pelvic and perineal pain 02/01/2019 Personal history of urinary (tract) infections 01/16/2020 Pre-diabetes 11/15/2023 Primary hypercoagulable state ([facility]) 08/01/2022 Pruritus, unspecified 01/02/2020 Psychogenic hyperventilation 06/12/2023 Raised antibody titer 09/25/2017 Right lower quadrant pain 11/15/2023 Right otitis externa 11/15/2023 Salivary gland swelling 11/15/2023 Single live ([facility]) 01/15/2020 Snoring 11/15/2023 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) 12/30/2019 Suspected severe acute respiratory syndrome coronavirus 2 (SARS-CoV-2) infection 06/12/2023 SVT (supraventricular tachycardia) ([facility]) 08/26/2019 Syncope and collapse 06/03/2018 Other bacterial infections of unspecified site 06/27/2019 Thrombocytopenia, unspecified 11/20/2019 Hypoglycemia 06/12/2023 Unspecified condition associated with female genital organs and menstrual cycle 05/09/2019 Unspecified ovarian cyst, right side 02/06/2019 Urinary tract infection 10/16/2019 Referred otalgia of right ear 11/19/2023 LPRD (laryngopharyngeal reflux disease) 11/19/2023 H/O loss 01/05/2025 Multigravida of advanced maternal age in second trimester ([facility]) 01/05/2025 Thyroid disease 01/05/2025 Resolved Ambulatory Problems [...] drainage of cyst WISDOM TOOTH EXTRACTION 2007 [place] teeth REVIEW OF SYSTEMS Review of Systems: [...] nursing note reviewed. Exam conducted with a medicaid specialist present. Vitals: Estimated body mass index is 33.98 kg/m?? as calculated from the following: Height as of 11/19/23: 5' 6 . Weight as of this encounter: 210 lb 8 oz. BP: 116/72 Patient's last menstrual period was 07/28/2024. Assessment/Plan ICD-10-CM 1. Third trimester ([facility]) Z34.93 2. 30 weeks gestation of ([facility]) Z3A.30 POCT urinalysis dipstick manually resulted Patient [...] Plan of Treatment DateTypeDepartmentCare Team (Latest Contact Info)Hjdcmratmtr68/11/2025 9:50 AM ESTRoutine [facility] [address] [place] [phone] Wilton Herrmann DO [address] [place] [address] documented as of this encounter Procedures Procedure NamePriorityDate/TimeAssociated DiagnosisCommentsPOCT URINALYSIS BPNYPSWLLnokofr92/27/2025 9:38 AM EDT 30 weeks gestation of ([facility]) documented in this encounter Results * POCT [...] Care Teams Team MemberRelationshipSpecialtyStart DateEnd Date Evans Cassa MD [address] [place] [address] PCP - GeneralFamily Medicine11/07/23documented as of this encounter
--- OUTSIDE RECORDS SUMMARY | 2025-03-02 11:30 | XMS_ITS | Encounter Summary ---
Author Organization [facility] Address [address] [place] [address] Care Team Providers Care Feed Blender Name Role Phone Jonny Wilcox MD Unavailable [phone] Cosmo Elliott MD Unavailable [phone] Davida Restrepo RN Unavailable [phone] Evans Casas DO Primary Care Provider [phone] Source Comments In the event this information is protected by the Federal Confidentiality of Alcohol and Drug AbusePatient Records regulations: The Federal rules restrict any use of the information to criminally investigate or prosecute any alcohol or drug abuse patient.[facility] Reason for Visit * ReasonCommentsEstablished Patient Encounter Details DateTypeDepartmentCare Team (Latest Contact Info)Xlmmgwhddgj29/03/2025 11:30 AM ESTVisit (SP) Office Hematology/Oncology [address] [address] 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 APRN.PLASTIC MOULD MAKER [address] [place] [address] Antiphospholipid antibody positive (Primary Dx); Iron [...] drink = 0.6 oz pure alcohol)PHQ-2AnswerDate RecordedPHQ-2 [id number] Deprivation Index AnswerDate RecordedNational Score (1-100), lower number is lower risk58 09/28/2022State Score (1-10), lower number is lower [id number] from: https://www.neighborhoodatlas.[facility].edu/. Last address used for odvzuiiexxs23 [facility]3Estimated Date of DeliveryCommentsYes 07/28/2024Sex and Gender InformationValueDate RecordedSex Assigned at BirthNot on fileLegal QpfYlfxah25/29/2018 10:06 AM ESTGender IdentityNot on fileSexual OrientationNot on fileOccupationIndustryJob Start DateJob End Datestay at home momNot on fileNot on fileNot on filedocumented as of this encounter Last Filed Vital Signs Vital SignReadingTime TakenCommentsBlood Hudxtebl486/7911 11:56 AM EST Nxfon134003/02/2025 11:56 AM YWLGvgpwsooqpg32.2 ??C (97.2 ??F)03/02/2025 11:56 AM ESTRespiratory Uheq360005/02/2024 11:56 AM ESTOxygen Yikddjnabe38%03/02/2025 11:56 AM ESTInhaled Oxygen Concentration--Uiexag10.2 kg (214 lb 4.6 oz)03/02/2025 11:56 AM ESTHeight--Body Mass Index34.5608 11:34 AM EDTdocumented in this encounter Progress Notes * 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 APRN.PLASTIC MOULD MAKER - 03/02/2025 12:07 PM EST Images from the original note were not included. NAME: Sanna Bone CLINIC NO.: [id number] DATE OF SERVICE: March 02, 2025 (Arsh) [...] later in 2018. These were found in [place], [place]. I don't have access to these [...] a target-like rash shortly before presenting to [facility] in 2015 with headaches and was diagnosed [...] SUMMARIZED PLAN OF CARE: Continue Lovenox Saw RESTORER LACE AND TEXTILES and patient increased Lovenox to 40 mg [...] Osorio soon. When she hada stroke in [place], she had symptoms up to a month before: uncontrollable headache, BP was elevated, knee stiffness, and blurry vision. Right facial drooping and [facility] to [facility]. Updated Visit, [...] and stayed [place] Hgb 13.1 [place] [facility] if persisting bleeding but she [...] and at age 69. Both lived in [facility] but she was adopted. She was not able to see ID in October and will be seeing Dr. Baugh next week. Also will have her see Dr. Hamlin for her clotting disorder and make any other recommendations to optimize her treatment. Updated Visit, October 08, 2020: Telephone only Received call from pt stating she was seen in [facility] [place] for numbness in her chest, throat, and extremities, and sob which has been worsening over the last week. We arranged a telephone visit for her toreview questions with me. Sanna Bone is a 34 year old female seen for Hypercoagulable state and recent concerns and symptoms that required her to be seen at [facility] [place]. She went to the ER with Gradual worsening of breathing after progressive tingling of fingers and legs. She currently remains very fatigued even though she is sleeping well. Now recalls that before her stroke she remembers having a bull's eye rash and was seen with severe headaches in [place], [place] - was found to have a [...] a root canal and was sent [place] [facility] [place] which was negative but non-contrasted. [...] history goes back to January 2016 in [facility] where she had persisting headaches and slurred speech followed by lower extremity weakness. This took a few months to resolve and she is back to her normal state of being but some point in time during her her next she was seen by Dr. Pascual Hyde in [place] as well and was found to have [...] which included preparing to see the patient, obbj-oi-carg patient care, completing clinical documentation, obtaining and/or reviewing separately obtained history, performing a medically appropriate examination, counseling and educating the pat ient/family/caregiver, ordering medications, tests, or procedures, independently interpreting results (not separately reported), and communicating results to the patient/family/caregiver. 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 APRN.TOR Hematology and Oncology Services Provided at: [place], [place] CC: MD Wilton Day, [address] [place] [address] Humaira Gaviria MD [address] [place] [id number] MD Cosmo Kingston MD Michael [place], MD documented in this encounter Plan of Treatment DateTypeDepartmentCare Team (Latest Contact Info)Qtqswrlhgxh82/01/2025 8:00 AM ESTOffice Visit [facility] [address] [place] [address] [place] [address] Return in 4 weeks lab and possible iron03/30/2025 8:20 AM ESTVisit (SP) Office Hematology/Oncology [address] [place] [address] Salvador Dos Santos MD [address] [place] [address] [place] [address] Return in 4 weeks lab and possible iron03/30/2025 8:30 AM ESTInfusion Center Hematology/Oncology [address] [place] [address] [place] [address] Return in 4 weeks lab and possible [...] Evans Casas DO [address] [place] [address] PCP - GeneralFamily Dcipjxny43/3/22 Jonny Wilcox MD [address] [place] [address] Primary Staff PhysicianCardiology07/16/18 [place] [address] [place] [address] PhysicianHematology/Oncology09/14/21 Davida Restrepo, RN [address] [place], [place] [id number] Specialty Care CoordinatorHematology/Oncology09/14/21documented as of this encounter
--- OUTSIDE RECORDS SUMMARY | 2025-03-09 18:01 | XMS_ITS | Encounter Summary ---
Author Organization [facility] Address [address] [place] [address] Care Team Providers Care Subcontract Manager Name Role Phone Jonny Wilcox MD Unavailable [phone] Cosmo Elliott MD Unavailable [phone] Davida Restrepo RN Unavailable [phone] Evans Casas DO Primary Care Provider [phone] Source Comments In the event this information is protected by the Federal Confidentiality of Alcohol and Drug AbusePatient Records regulations: The Federal rules restrict any use of the information to criminally investigate or prosecute any alcohol or drug abuse patient.[facility] Encounter Details DateTypeDepartmentCare Team (Latest Contact Info)Jvumwplahjf82/03/2025Travel Social History Tobacco UseTypesPacks/DayYears UsedDateSmoking Tobacco: NeverSmokeless Tobacco: NeverAlcohol UseStandard Drinks/WeekCommentsNo0 (1 standard drink = 0.6 oz pure alcohol)PHQ-2AnswerDate RecordedPHQ-2 [id number] Deprivation Index AnswerDate RecordedNational Score (1-100), lower number is lower risk58 09/28/2022State Score (1-10), lower number is lower [id number] from: https://www.neighborhoodatlas.medicine.[facility].edu/. Last address used for [address]Estimated Date of DeliveryCommentsYes 07/28/2024Sex and Gender InformationValueDate RecordedSex Assigned at BirthNot on fileLegal MoxOeymhs28/29/2018 10:06 AM ESTGender IdentityNot on fileSexual OrientationNot on fileOccupationIndustryJob Start DateJob End Datestay at home momNot on fileNot on fileNot on filedocumented as of this encounter Plan of Treatment DateTypeDepartmentCare Team (Latest Contact Info)Blricikaeqc42/01/2025 8:00 AM ESTOffice Visit [facility] [address] [place] [address] [place] [address] Return in 4 weeks lab and possible iron03/30/2025 8:20 AM ESTVisit (SP) Office Hematology/Oncology [address] [place] [address] [place] [address] Salvador Dos Santos MD [address] [place] [address] [place] [address] Return in 4 weeks lab and possible iron03/30/2025 8:30 AM [facility] Hematology/Oncology [address] [place] [address] [place] [address] Return in 4 weeks lab and possible irondocumented as of this encounter Visit Diagnoses Not on filedocumented in this encounter Care Teams Team MemberRelationshipSpecialtyStart DateEnd Date Evans Casas DO [address] [place] [address] PCP - GeneralFamily Nrpzyzkp13/3/22 Jonny Wilcox MD [address] [place] [address] Primary Staff PhysicianCardiology07/16/18 [place] [address] [place] [address] PhysicianHematology/Oncology09/14/21 Davida Restrepo, RN [address] [place] [address] Specialty Care CoordinatorHematology/Oncology09/14/21documented as of this encounter
--- OUTSIDE RECORDS SUMMARY | 2025-03-09 18:01 | XMS_ITS | Clinical Summary ---
Author Organization [facility] Address [address] [facility], [address] [place] [address] Care Team Providers Care Research Psychologist Name Role Phone Evans Casas DO Primary Care Provider [phone] Allergies Active AllergyReactionsCriticalityNoted DateCommentsCiprofloxacinOther (See Comments)06/19/2019Ciprofloxacin-Fluocinolone PfOther [...] elevated without history of HTN12/11/2023ry mouth 12/11/2023Environmental mqkoymqar63/13/2024H/O: ordgzugmpbolch46/13/2024History of dqmtli3212/11/2023History of gestational unsjfbub14/13/2024History of kidney luwrdx6612/11/2023Hx of iron deficiency gofsoy7712/11/2023Immunization not carried out because of patient yztkbskq95/13/2024Morbid tjkvlxp5712/11/2023Non-smoker 12/11/2023OSA (obstructive sleep apnea)12/11/2023ight otitis dmhtqia1812/11/2023 Abdominal pain06/12/2023cute bronchitis due to kyiedsixj48/13/2024nxiety 06/12/2023ysfunction of eustachian tube06/12/20232655Teoidqp23/13/2024Hematochezia 06/12/2023History of severe acute respiratory syndrome coronavirus 2 (SARS-CoV-2) ttxujbq9506/12/20239752Vomahectpnqv67/13/2024Inhalation mtiqaw0906/12/2023 odrvzgr3206/12/2023sychogenic gaoqkrvkalpopljj22/13/2024Suspected severe acute respiratory syndrome coronavirus 2 (SARS-CoV-2) norlkfxyn96/13/2024 Primary hypercoagulable state08/01/2022estational diabetes mellitus in , unspecified byfbart1701/26/2022Genitourinary byaumrcw52/22/2022Muscle bsxrlhteyuzgh78/22/2022TIA (transient ischemic attack)06/16/2020erebrovascular accident (CVA) due to stenosis of middle cerebral nsrdxa9502/22/2020Anticoagulant long-term use02/22/2020Acute posthemorrhagic cvtiyf9101/16/202039 weeks gestation of uirfyixlw50/18/2020Anemia complicating mpzwimlade21/18/2020Endocrine, nutritional and metabolic diseases complicating xvhqwmgpto92/18/2020First degree perineal laceration during zfucmcjp07/18/2020Other immediate xxmmnfxfdo45/18/2020Personal history of transient ischemic attack (TIA), and cerebral infarction without residual bakxmqrb22/18/2020Personal history of urinary (tract) mucmjgobyi22/18/2020Single live birth01/15/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01/08/202038 weeks gestation of tdqklwtaa64/09/2020Pruritus, ogvivuvdgqp61/04/202037 weeks gestation of ylmxaxmlr59/04/337250 weeks gestation of lejtrtdxn52/01/2020Other speech and language deficits following cerebral fymjevukpr97/01/2020Other diseases of the blood and blood-forming organs and certain disorders involving the immune mech anism complicating apdnctpypp43/25/609466 weeks gestation of fecmrayrh38/24/2020 34 weeks gestation of /18/131426 weeks gestation of 12/10/201932 weeks gestation of /31/2020Thrombocytopenia, unspecified 11/20/2019Other general symptoms and signs10/28/2019Urinary tract infection, site not hzphlcexy71/18/6661Hicyjnqbzyjb15/28/2020SVT (supraventricular tachycardia)08/26/2019Antiphospholipid antibody kbzqipwc13/09/2020Other bacterial infections of unspecified site06/27/2019Less than 8 weeks gestation of uvmysvzzo14/06/2020Encounter for supervision of normal , unspecified, first umrcemhav67/30/1285Mersyjfrtsvj43/17/2020Cerebral infarction, unspecified 05/16/2019Paresthesia of skin05/16/2019Deficiency of other specified B group /17/2020Hypothyroidism, ykqxxhbypvr10/17/2020Unspecified condition associated with female genital organs and menstrual cycle05/09/2019Vomiting of , nzliehkwass87/06/2020Other specified noninflammatory disorders of exmwdh7502/21/2019Frequency of vtqrcmmjagi88/23/2019Unspecified ovarian cyst, right side02/06/2019Coagulation defect, nnykdtupzlu40/09/2019Cervicalgia 02/05/2019Long term (current) use of 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/tfgvekvugzkzr82/09/2019 Dizziness and rvrqamiya53/09/2019Other acute postprocedural pain02/03/2019Pelvic and perineal pain02/01/2019Syncope and iheagtmk47/04/2019Anticardiolipin antibody meiaodcr93/29/2018Migraine without aura and without status migrainosus, not /16/2018Antiphospholipid antibody bposuaee86/14/2018Pain in joint12/29/20167395Ugbktdz74/01/2017Idiopathic progressive fmmklzxudi32/01/2017 Resolved Problems ProblemNoted DateDiagnosed DateResolved IkwgAljkl80/ Encounters DateTypeDepartmentCare VpffPgcwmdygskf71/24/2025 2:30 PM EDTOffice Visit [facility] [address] [place] [address] [place] [address] Peng Osorio MD Antiphospholipid antibody syndrome (Primary [...] InformationValueDate RecordedSex Assigned at BirthNot on fileLegal PkvScmqxr50/14/2017 2:04 PM EDT Gender IdentityNot on fileSexual OrientationNot on file Last Filed Vital Signs Vital SignReadingTime TakenCommentsBlood Idztlvhl414/6409 2:40 PM EDT Jbfis540401/21/2025 2:40 PM DJCEnncaxpslct18.2 ??C (97.2 ??F)02/09/2022 11:22 AM EDTRespiratory Nqvw1076 11:22 AM EDTOxygen Pkoersgwap95%10/04/2020 2:01 PM EDTInhaled Oxygen Concentration--Zyhmds82.8 kg (209 lb)01/21/2025 2:40 PM EDT Frqiup071.6 cm (5' 6 )02/09/2022 11:22 AM EDTBody Mass Index33.7302/09/2022 11:22 AM EDT Plan of Treatment DateTypeDepartmentCare Team (Latest Contact Info)Exonzdbopks68/25/2026 1:45 PM EDTOffice Visit [facility] [address] [place] [address] [place] [address] Peng Osorio MD [address] [place] [address] [place] [address] 6 MOS FUPHealth MaintenanceDue DateLast DoneCommentsDepression Ozcrtu1810/21/1997 Varicella vaccine (1 of 2 - 13+ 2-dose series)1998Hepatitis C screen 10/22/2003Hepatitis B vaccine (1 of 3 - 19+ 3-dose series)2004Pap smear 2006Cervical cancer hvuffs2610/22/2015HPV (without or with Pap)10/22/2015 DTaP/Tdap/Td vaccine (2 [...] Procedure NamePriorityDate/TimeAssociated DiagnosisCommentsHIV-1,-2 W/REFLEX TO HIV-1 WESTERN PNOCKlfcbwn33/01/2017 11:49 AM EDT Arthralgia, unspecified joint Fatigue, unspecified type Sensation disorder from Last 3 Months or Most Recently Relevant to Health Maintenance Results * Hiv-1,-2 W/Reflex To Hiv-1 Western Blot (12/29/2016 11:49 AM EDT)Component ValueRef RangeTest MethodAnalysis TimePerformed AtPathologist Signature HIV-1/HIV-2 AxGteiucrzZuixemmz61/03/2017 12:03 AM [facility] Comment: Based on the non-reactive anti-HIV (BRENDEN) screen, the HIV Western blot is not indicated and therefore not performed. INTERPRETIVE INFORMATION: HIV-1,-2 w/Reflex to HIV-1 Western Blot This assay should not be used for blood donor screening, associated re-entry protocols, or for screening Human Cells, Tissues and Cellular and Tissue-Based Products (HCT/P). Performed by [facility], [facility] [place] [address] www.[email or web address], Zhang Bledsoe MD - Lab. Director Specimen (Source)Anatomical Location / LateralityCollection Method / Volume Collection TimeReceived TimeBLOOD SPECIMEN / Vlqapdq6612/29/2016 11:49 AM EDT 12/29/2016 1:50 PM EDT Narrative Authorizing ProviderResult TypeResult StatusRitiki Monroe MDHEMATOLOGY ORDERABLES Final ResultPerforming OrganizationAddressCity/State/ZIP CodePhone Number [facility] [address] [place] [address], [facility] [phone] from Last 3 Months or Most Recently Relevant to Health Maintenance Insurance Care Teams Team MemberRelationshipSpecialtyStart DateEnd Date Evans Casas DO [address] [place] [address] PCP - GeneralFamily Medicine10/04/20
--- OUTSIDE RECORDS SUMMARY | 2025-03-09 18:01 | XMS_ITS | Encounter Summary ---
Author Organization [facility] Address [address] [place] [address] Care Team Providers Care Surgical Device Sales Representative Name Role Phone Penelope Casas MD Primary Care Provider [phone] Encounter Details DateTypeDepartmentCare Team (Latest Contact Info)Hzyznfraejc41/11/2025linisync Result Encounter [facility] External Department Unsolicited Mya Herrmann, DO [address] [place], [place] [id number] Social History Tobacco UseTypesPacks/DayYears UsedDateSmoking Tobacco: NeverSmokeless Tobacco: NeverAlcohol UseStandard Drinks/WeekCommentsNever0 (1 standard drink = 0.6 oz pure alcohol)PHQ-2AnswerDate RecordedPatient Health Questionnaire-2 Score0 01/06/2025CommentsYesSex and Gender InformationValueDate RecordedSex Assigned at BirthNot on fileLegal CseOdxeyh12/15/2023 11:19 PM EDTGender IdentityNot on fileSexual OrientationNot on filedocumented as of this encounter Functional Status * Over the past 2 weeks, how often have you been bothered by any of the following problems?QuestionAnswerDate of AssessmentAuthorLittle interest or pleasure in doing thingsNot at all01/06/2025 9:35 AM Petra Flores LPN Feeling down, depressed, or hopelessNot at all01/06/2025 9:35 AM Petra Flores LPNPatient Health Questionnaire-2 Zmqkf936 9:35 AM Petra Flores LPN documented as of this encounter Plan of Treatment DateTypeDepartmentCare Team (Latest Contact Info)Yxwlzzdyuma04/11/2025 9:50 AM ESTRoutine [facility] [place] [facility] [address] [place] [address] Mya Herrmann, DO [address] [place] [address] documented as of this encounter Procedures Procedure NamePriorityDate/TimeAssociated DiagnosisCommentsUS OB LIMITED 1+ UFQIOIM1205/10/2024 9:26 AM EST SRMCOH PROTHROMBIN TIME INR W/O ISHZPmsvkjl57/11/2025 8:44 AM EST MHPT QBWSXMPBDGKgmzwbw00/11/2025 8:44 AM EST [facility] CQYCQkgwinu33/11/2025 8:44 AM EST documented in this encounter Results * US OB limited 1+ fetuses (05/10/2024 9:26 AM EST)Anatomical RegionLaterality ModalityBodyUltrasoundSpecimen (Source)Anatomical Location / Laterality Collection Method / VolumeCollection TimeReceived Time05/10/2024 9:26 AM EST Narrative 05/10/2024 9:[address] [facility] ?[address] ? [place] [address] ? Ultrasound Report ? Signed ? Patient: MADHU RENDON ?MR#: [id number] ?? : 1985 ?Acct:[id number] ?? Age/Sex: 38 / F ?ADM Date: ?? Loc: [facility] ??258-1 ? Attending Dr: Mya Herrmann D.O. ? Ordering Physician: Mya Herrmann D.O. ?? Date of Service: 05/10/24 ?? Procedure(s): US OB limited ?? Accession Number(s): [id number] ? cc: Mya Herrmann D.O.; PENELOPE CASAS ? [facility] ? [address] ? [place] [address] ? Patient Name: ?? MADHU RENDON ? MRN: [facility]:[id number] ? date: 1985 ?Sex: F ?? Assigned Patient Location: [facility] ?? Current Patient Location: US ?? Accession/Order Number: [id number] ?? Exam Date: 05/10/2024 ??08:30 ?Report Date: [...] ?05/10/2429 ? DD/ 5 ? TD/TT: ? Call Or Contact Centre Team Leader: Procedure Note Radiology, Radiologist, - 05/10/2024 [place] [address] Ultrasound Report Signed Patient: MADHU RENDON SMR#: [id number] : 1985Acct:[id number] Age/Sex: 38 / FADM Date: Loc: [facility] 258-[address]: Mya Herrmann D.O. Ordering Physician: Mya Herrmann D.O. Date of Service: 05/10/24 Procedure(s): US OB limited Accession Number(s): [id number] cc: Mya Herrmann D.O.; PENELOPE CASAS [address] [address] Patient Name: MADHU RENDON MRN: [id number] date: 1985 Sex: F Assigned Patient Location: [facility] Current Patient Location: Accession/Order Number: [id number] Exam Date: 05/10/2024 08:30 Report Date: 05/10/2024 [...] Riley M.D. Signed By:05/10/24928 DD/ 5 TD/TT: Call Or Contact Centre Team Leader: Authorizing ProviderResult TypeResult StatusCorecarmen Herrmann DOIMG OB US PROCEDURES Final Result * MHPT FIBRINOGEN (05/10/2024 8:44 AM EST)ComponentValueRef RangeTest Method Analysis TimePerformed AtPathologist BxncbdomeIWKBPLCUML550280 - 400 mg/dLTBH Specimen (Source)Anatomical Location / [...] Date Penelope Casas MD [address] [place] [address] PCP - GeneralFamily Medicine11/07/23documented as of this encounter
--- OUTSIDE RECORDS SUMMARY | 2025-03-09 18:01 | XMS_ITS | Encounter Summary ---
Author Organization [facility] Address [address] [facility] [place] [address] Care Team Providers Care Employee Relations Representative Name Role Phone Evans Casas MD Primary Care Provider [phone] Encounter Details DateTypeDepartmentCare Team (Latest Contact Info)Bzjrasmlbgy45/05/2025bstract [facility] [address] [place] [address] Wilton Herrmann DO [address] [place], [facility]11 Social History Tobacco UseTypesPacks/DayYears UsedDateSmoking Tobacco: NeverSmokeless Tobacco: NeverAlcohol UseStandard Drinks/WeekCommentsNever0 (1 standard drink = 0.6 oz pure alcohol)PHQ-2AnswerDate RecordedPatient Health Questionnaire-2 Score0 03/03/2025Estimated Date of EsfhkpoyHqbqacuxYay27/05/2026ased on last menstrual period of 07/28/2024Sex and Gender InformationValueDate RecordedSex Assigned at BirthNot on fileLegal XrqUphysv08/15/2023 11:19 PM EDTGender IdentityNot on fileSexual OrientationNot on filedocumented as of this encounter Plan of Treatment DateTypeDepartmentCare Team (Latest Contact Info)Kdxbegtmfeg36/11/2025 9:50 AM ESTRoutine [facility] [address] [place] [address] Wilton Herrmann [address] [place] [address] documented as of this encounter Visit Diagnoses Not on filedocumented in this encounter Care Teams Team MemberRelationshipSpecialtyStart DateEnd Date Evans Casas MD [address] [place] [address] PCP - GeneralFamily Medicine11/07/23documented as of this encounter
--- OUTSIDE RECORDS SUMMARY | 2025-03-09 18:01 | XMS_ITS | Encounter Summary ---
Author Organization [facility] Address [address] [place] [address] Care Team Providers Care Detention Attendant Name Role Phone Evans Casas MD Primary Care Provider [phone] Encounter Details DateTypeDepartmentCare Team (Latest Contact Info)Rtiymsyjctr11/07/2025linisync Result Encounter [facility] External Department Unsolicited Mya Herrmann DO [address] [place], [place] [address] Social History Tobacco UseTypesPacks/DayYears UsedDateSmoking Tobacco: NeverSmokeless Tobacco: NeverAlcohol UseStandard Drinks/WeekCommentsNever0 (1 standard drink = 0.6 oz pure alcohol)PHQ-2AnswerDate RecordedPatient Health Questionnaire-2 Score0 03/03/2025Estimated Date of IarbnxhsBkaunaxcSdf64/05/2026Based on last menstrual period of 07/28/2024Sex and Gender InformationValueDate RecordedSex Assigned at BirthNot on fileLegal TgkItqmkg42/15/2023 11:19 PM EDTGender IdentityNot on fileSexual OrientationNot on filedocumented as of this encounter Plan of Treatment DateTypeDepartmentCare Team (Latest Contact Info)Smpmmzomlps56/11/2025 9:50 AM ESTRoutine [facility] [place] [facility] [address] [place] [phone] Mya Herrmann DO [address] [place] [address] documented as of this encounter Procedures Procedure NamePriorityDate/TimeAssociated DiagnosisCommentsUS OB BPP W NON-ERVYTT0203/06/2025 8:10 AM EST documented in this encounter Results * US OB BPP W NON-STRESS (03/06/2025 8:10 AM EST)Anatomical Region LateralityModalityOtherSpecimen (Source)Anatomical Location / Laterality Collection Method / VolumeCollection TimeReceived Time03/06/2025 8:10 AM EST Narrative 03/06/2025 8:13 AM EST [facility] ?[address] ? [place] [address] ? Ultrasound Report ? Signed ? Patient: SANNA RENDON ?MR#: [id number] ?? : 1985 ?Acct:[id number] ?? Age/Sex: 39 / F ?ADM Date: 03/05/25 ?? Loc: US ? Attending Dr: Mya Herrmann D.O. ? Ordering Physician: Mya Herrmann D.O. ?? Date of Service: 03/05/25 ?? Procedure(s): US OB BPP w non-stress ?? Accession Number(s): [id number] ? cc: Mya Herrmann D.O.; Physician,Non-Staff M.D. ? [facility] ? [address] ? [place] [address] ? Patient Name: ?? SANNA RENDON ? MRN: [facility]:[id number] ? date: 1985 ?Sex: F ?? Assigned Patient Location: [facility] ?? Current Patient Location: ? Accession/Order Number: [id number] ?? Exam Date: 03/05/2025 ??19:15 ?Report Date: 03/06/2025 ??08:10 ? At the request of: ?? MYA ??MONTEZ ??DO ? Procedure: ??US OB BPP w non-stress ? BIOPHYSICAL PROFILE: ? CLINICAL INFORMATION: THIRD TRIMESTER Z34.93 ? COMPARISON: 02/26/2025 ? There is a single live intrauterine gestation in cephalic presentation. ??The ?? reported gestational age is 31 weeks 3 days. ??The heart rate measures ?? 159 beats per minute. ? FINDINGS: ? TONE: [...] 2 cm ? [Y] ? 2/2 ?SARAHI: 12.6 cm ? Total score: ? 8/8 ? US/US OB BPP w non-stress ?? IMPRESSION: ? NORMAL BIOPHYSICAL PROFILE. ? Impression dictated by: Pamela Pisano M.D. ??03/06/2025 8:10 AM ? Dictation Location: RADIO-PC-02 ? Electronically authenticated by: [id number] ??Y ?? Date: 03/06/2025 ??08:10 ? Dictated By: ?Pamela Pisano M.D. ? Signed By: ?11/07/25 0813 ? DD/ 0810 ? TD/TT: ? Bond Underwriter: Procedure Note Radiology, Radiologist, - 03/06/2025 [place] [address] Ultrasound Report Signed Patient: SANNA RENDON SMR#: [id number] : 1985Acct:[id number] Age/Sex: 39 / FADM Date: 03/05/25 Loc: US Attending Dr: Mya Herrmann D.O. Ordering Physician: Mya Herrmann D.O. Date of Service: 03/05/25 Procedure(s): US OB BPP w non-stress Accession Number(s): [id number] cc: Mya Herrmann D.O.; Physician,Non-Staff M.D. The [place] [id number] Patient Name: SANNA RENDON MRN: [id number] date: 1985 Sex: F Assigned Patient Location: [facility] Current Patient Location: Accession/Order Number: [id number] Exam Date: 03/05/2025 19:15 Report Date: 03/06/2025 08:10 At the request of: MYA HERRMANN DO Procedure: US OB BPP w non-stress BIOPHYSICAL PROFILE: CLINICAL INFORMATION: THIRD TRIMESTER Z34.93 COMPARISON: 02/26/2025 There is a single live intrauterine gestation in cephalic presentation.The reported gestational age is 31 weeks 3 days. The heart ratemeasures 159 beats per minute. FINDINGS: TONE: 1 or [...] greater than 2 cm [Y] 2/2 SARAHI: 12.6 cm Total score: 8/8 US/US OB BPP w non-stress IMPRESSION: NORMAL BIOPHYSICAL PROFILE. Impression dictated by: Pamela Pisano M.D. 03/06/2025 8:10 AM Dictation Location: [place] [address] Electronically authenticated by: [id number] Y Date: 508:10 Dictated By: Pamela Pisano M.D. Signed By:03/06/25812 DD/ 9 TD/TT: Bond Underwriter: Authorizing ProviderResult TypeResult StatusCorey Montez DOCLINISYNC IMAGINGFinal Result documented in this encounter Visit Diagnoses Not on filedocumented in this encounter Care Teams Team MemberRelationshipSpecialtyStart DateEnd Date Evans Casas MD [address] [place] [address] PCP - GeneralFamily Medicine11/07/23documented as of this encounter
--- OUTSIDE RECORDS SUMMARY | 2025-03-09 18:01 | XMS_ITS | Encounter Summary ---
Author Organization [facility] Address [address] [facility] [place] [address] Care Team Providers Care Biology Department Chair Name Role Phone Evans Casas MD Primary Care Provider [phone] Encounter Details DateTypeDepartmentCare Team (Latest Contact Info)Fxqtlhvqdfv63/27/2025amboo flowsheet [facility] [place] [facility] [address] [place] [address] Wilton Herrmann DO [address] [place], [facility]11 Social History Tobacco UseTypesPacks/DayYears UsedDateSmoking Tobacco: NeverSmokeless Tobacco: NeverAlcohol UseStandard Drinks/WeekCommentsNever0 (1 standard drink = 0.6 oz pure alcohol)PHQ-2AnswerDate RecordedPatient Health Questionnaire-2 Score0 01/06/2025Estimated Date of YczvpxrsZkiquzfzSra22/05/2026ased on last menstrual period of 07/28/2024Sex and Gender InformationValueDate RecordedSex Assigned at BirthNot on fileLegal MwzEkeqwo11/15/2023 11:19 PM EDTGender IdentityNot on fileSexual OrientationNot on filedocumented as of this encounter Plan of Treatment DateTypeDepartmentCare Team (Latest Contact Info)Okswxvvtmah11/11/2025 9:50 AM ESTRoutine [facility] [place] [facility] [address] [place] [address] Wilton Herrmann, [address] [place] [address] documented as of this encounter Visit Diagnoses Not on filedocumented in this encounter Care Teams Team MemberRelationshipSpecialtyStart DateEnd Date Evans Casas MD [address] [place] [address] PCP - GeneralFamily Medicine11/07/23documented as of this encounter
--- OUTSIDE RECORDS SUMMARY | 2025-03-09 18:01 | XMS_ITS | Clinical Summary ---
Author Organization [employer] tem Address [id number] [address] 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 Name Role Phone Evans Casas DO Primary Care Provider [phone] Allergies Active AllergyReactionsCriticalityNoted DateCommentsCiprofloxacinDizziness 06/19/2019LactalbuminOther (See Comments)Low05/25/2017 Other reaction(s): GI Upset Crampy and gassy LactoseGI Ckhcgsbvfkt93/14/2018 Diarrhea Milk Containing Products (Dairy)Other (See Comments)Low05/25/2017 [...] 1- 5 times per day) 100 each 3085Active blood-glucose sensor (FREESTYLE SOPHIE 3 PLUS SENSOR) device Indications:Gestational diabetes mellitus (GDM) in second trimester controlled on oral hypoglycemic drugWear for 15 days and change 2 each 6085Active metFORMIN XR (GLUCOPHAGE XR) 500 mg 24 hr tablet Take 1500 mg at night. 90 tablet 5Active enoxaparin (LOVENOX) 40 mg/0.4 mL syringe Indications:Antiphospholipid syndromeInject 0.4 mL (40 mg total) under the skin Every 12 (twelve) hours. 24 mL 6095Active Active Problems ProblemNoted DateDiagnosed DateGestational diabetes mellitus (GDM) in second trimester controlled on oral hypoglycemic drug12/17/20241739Kfwmfj55/08/2025MA (advanced maternal age) multigravida 35+11/04/2024ntiphospholipid syndrome 11/04/20248569Diwbcwraemb77/08/8137Saueqf33/08/2025ntiphospholipid syndrome complicating , pgoogbnkqu56/09/2020Estimated Date of Delivery KvguhkciZaq27/05/2026Based on last menstrual period of 07/28/2024 Resolved Problems ProblemNoted DateDiagnosed DateResolved DateCerebral infarction, unspecified Migraine without aura and without status migrainosus, not xeqkmypnziz83 Encounters DateTypeDepartmentCare MbgiZtybzkhyfuy74/07/9806Nczvlx09/23/2025Orders Only [facility], A Department of [address] [address] Ref Prov, Not In System 02/18/2025[facility]ders Only [facility] Department of [address] [address] Ref Prov, Not In System 02/16/2025 1:45 PM EDTOffice Visit [facility] Department of [address] [address] Sam Callahan MD MPH Antiphospholipid syndrome (Primary Dx); Antiphospholipid syndrome complicating , antepartum; History of CVA (cerebrovascular accident); Coordination of complex care; 29 weeks gestation of cwijopgik22/20/3398Zgiwfk88/14/2025Telephone Maternal- Medicine at [facility] [address] [place] [address] Annita Kendall LD 02/06/2025 2:00 PM EDTTelemedicine Maternal- Medicine at [facility] [address] [place] [address] Wilfrid Medina MD 27 weeks gestation of (Primary Dx); Multigravida of advanced maternal age in third trimester; Gestational diabetes mellitus (GDM) in second trimester controlled on oral hypoglycemic drug; Antiphospholipid syndrome complicating , antepartum; Antiphospholipid pcxmuwwa11/10/3218Biljqr49/09/8127Kvpayh37/16/2025 10:00 AM EDT Telemedicine Maternal- Medicine at [facility] [address] [place] [address] Davida Smith, YONYC Gestational diabetes mellitus (GDM) in second trimester controlled on oral hypoglycemic drug (Primary Dx); Antiphospholipid syndrome; Other specified hypothyroidism; Antiphospholipid syndrome complicating , sibjcggtlj87/16/2025Travel 01/09/2025Telephone Maternal- Medicine at [facility] [address] [place] [address] Wilfrid Medina MD 01/09/2025Orders Only Maternal- Medicine at [facility] [address] [place] [address] Wilfrid Medina MD Antiphospholipid syndrome (Primary Dx)01/07/2025Telephone Maternal- Medicine at [facility] [address] [place] [address] Jacque Pat, MARSHA 01/06/2025Telephone Maternal- Medicine at [facility] [address] [place] [address] Margo Khan RN 01/05/2025Orders Only Maternal- Medicine at [facility] [address] [place] [address] Jacque Pat, MARSHA Multigravida of advanced maternal age in second trimester (Primary Dx); Antiphospholipid syndrome complicating , antepartum; Gestational diabetes mellitus (GDM) in second trimester controlled on oral hypoglycemic drug; AMA (advanced maternal age) multigravida 35+, second trimester; Hypothyroidism, unspecified type; History of stroke; History of loss in prior , currently in second trimester; Hypothyroidism affecting in second trimester; Family history of autism; Zoetobiqwrmq07/08/2025Documentation Maternal- Medicine at [facility] [address] [place] [address] Jacque Pat, MARSHA 01/01/2025 2:30 PM EDTTelemedicine Maternal Medicine [place] [address] [address] Wilfrid Medina MD 22 weeks gestation of (Primary Dx); Antiphospholipid syndrome complicating , antepartum; History of stroke; History of loss in prior , currently in second trimester; Gestational diabetes mellitus (GDM) in second trimester controlled on oral hypoglycemic drug; Multigravida of advanced maternal age in second trimester; Hypothyroidism affecting in second trimester; Family history of autism; Yuyurdsbbogu83/04/2025Orders Only Maternal Medicine [place] [address] [facility] [address] [place] [id number] Iraida Warren RN Multigravida of advanced maternal age in second trimester (Primary Dx); Antiphospholipid syndrome complicating , antepartum; Gestational diabetes mellitus (GDM) in second trimester controlled on oral hypoglycemic drug; Insulin controlled gestational diabetes mellitus (GDM) in second trimester; AMA (advanced maternal age) multigravida 35+, second trimester; Hypothyroidism, unspecified type01/01/20257727Iailja24/29/2025Orders Only [facility] - Labor [address] [place] [address] Wilfrid Medina MD Gestational diabetes mellitus (GDM) in second trimester controlled on oral hypoglycemic drug (Primary Dx)12/26/2024Telephone Maternal- Medicine at [facility] [address] [place] [address] Stephanie Quiros LD 12/17/2024 3:30 PM EDTTelemedicine Maternal- Medicine at [facility] [address] [place] [address] Alisa Saba APRN-TOR Gestational diabetes mellitus (GDM) in second trimester controlled on oral hypoglycemic drug (Primary Dx)12/17/20249816Cnazsy02/15/2025Orders Only Maternal- Medicine at [facility] [address] [place] [address] Star Waggoner MD 12/12/2024Telephone Maternal- Medicine at [facility] [address] [place] [address] Annita Kendall LD 12/12/2024Telephone Maternal- Medicine at [facility] [address] [place] [address] Annita Kendall LD from Last 3 Months Family History Medical QcqythhZnzancmiOnijTrhflafwOxnhwxejEmlfrmV6GWGrgnknSypetjLzyusk illness Maternal GrandmotherCancerPaternal GrandfatherDiabetesPaternal QaeicdfytboQ7QF CancerPaternal GrandmotherDiabetesPaternal VlqvkmlbwbjV9CCUrulabmeTgixykO1KD RelationNameStatusCommentsFatherDeceasedMaternal GrandmotherPaternal Grandfather Paternal GrandmotherSister Social History Tobacco UseTypesPacks/DayYears UsedDateSmoking Tobacco: NeverSmokeless Tobacco: Never Tobacco Cessation:Counseling Given: Not Answered Alcohol UseStandard Drinks/WeekCommentsNot Currently0 (1 standard drink = 0.6 oz pure alcohol)ChildcareAnswerDate EbogkuffWufevttxqQzpqhvu57/31/2019Employment AnswerDate KjgjtpbnKtohwdyxteNvnjiup52/31/2019Hunger ScreeningAnswerDate RecordedWithin the past 12 months we worried whether our food would run out before we got money to buy more.Never True01/01/2025Within the past 12 months the food we bought just didn't last and we didn't have money to get more.Never True01/01/2025Purpose - LifeAnswerDate RecordedPurpose and direction in life Cjlzplu31/11/2021Estimated Date of MmkxfwqdSyefgwqpBrw55/05/2026Based on last menstrual period of 07/28/2024Sex and Gender InformationValueDate Recorded Sex Assigned at BirthNot on fileLegal IlmFwqgyn34/31/2019 12:25 PM EDTGender IdentityNot on fileSexual OrientationNot on file Last Filed Vital Signs Vital SignReadingTime TakenCommentsBlood Bvjbqzya029/8010 1:44 PM EDT Aunfn1155 1:44 PM EDTTemperature--Respiratory Siee5303 1:44 PM EDTOxygen Saturation--Inhaled Oxygen Concentration--Vjgxfh53.8 kg (209 lb) 02/16/2025 1:44 PM EXKCmkarm038.6 cm (5' 6 )02/16/2025 1:44 PM EDTBody Mass Index33.7302/16/2025 1:44 PM EDT Plan of Treatment DateTypeDepartmentCare Team (Latest Contact Info)Buibecvccqd59/12/2025 9:45 AM ESTTelemedicine Maternal- Medicine at [facility] [address] [place] [address] Sana Palma MD [address] [place] [address] Star Waggoner MD [address] [facility] [place] [address] 03/17/2025 8:30 AM ESTTelemedicine [facility], A Department of [address] [address] Sam Callahan MD [address] [address] Health MaintenanceDue DateLast DoneCommentsDepression Zysawkzmm58/24/1998Adult BMI Follow Up Plan10/22/2003DTaP,Tdap and Td Vaccines (2 - Td or Tdap)07/03/2024 07/03/2014Influenza Uxesiwl7612/29/2024Pap SmearSV ( or age 60+ yrs) (1 - Risk 1-dose series)03/09/2025dult BMI Screening Tobacco Coqbmjykd35 Medical Devices Not on file Procedures Procedure NamePriorityDate/TimeAssociated DiagnosisCommentsEXTERNAL LAB ORDERS / ATCISCTAsbjtcq31/23/2025 3:15 PM EDTEXTERNAL LAB ORDERS / RESULTSRoutine 02/19/2025 3:13 PM EDTEXTERNAL LAB ORDERS / BJOZRTHIboycmk27/22/2025 1:58 PM EDT [facility] OB FOLLOW-UP, 1 LEZMBKxxfusl52/09/2025 2:10 PM EDT Multigravida of advanced maternal age in second trimester Antiphospholipid syndrome complicating , antepartum Gestational diabetes mellitus (GDM) in second trimester controlled on oral hypoglycemic drug Insulin controlled gestational diabetes mellitus (GDM) in second trimester AMA (advanced maternal age) multigravida 35+, second trimester Hypothyroidism, unspecified type [facility] COMPREHENSIVE ANATOMIC ARPYYHAultdwi06/04/2025 2:24 PM EDT Screening, , for anatomic survey Multigravida of advanced maternal age in second trimester from Last 3 Months Results * External Lab Orders / Results (02/19/2025 3:15 PM EDT) Only the most recent of3 resultswithin the time period is included. Narrative Authorizing ProviderResult TypeResult StatusNot In System Ref ProvLAB ORDERABLES Final ResultPerforming OrganizationAddressCity/State/ZIP CodePhone Number MANUALLY TRANSCRIBED RESULTS * [facility] OB FOLLOW-UP, 1 FETUS (02/05/2025 2:10 PM EDT) Only the most recent of2 resultswithin the time period is included. Anatomical RegionLateralityModalityOB-GYNUltrasoundSpecimen (Source)Anatomical Location / LateralityCollection Method / VolumeCollection TimeReceived Time 02/05/2025 1:21 PM EDT Narrative 02/06/2025 5:22 PM EDT NAME: ??JUSTICE LEUNG : 1985 SEX: F Accession Number: [id number] ORDERING PHYSICIAN: MYA MASSEY REFERRING PHYSICIAN: MYA MASSEY Coding Procedures ? 05220: Ultrasound, uterus, real time with image documentation, follow up,transabdominal ? approach per fetus ? [id number]: Echocardiography, , cardiovascular system, real time with image documentation (2D), with or ? without M-mode recording; follow-up or repeat study Indication Screening for follow-up survey, Screening for congenital cardiac abnormality , Gestational diabetes, AMA- Supervision of elderly , Supervision of high risk -(MOB son - hypospadia, MOB -son - laryngomalacia ), Obesity in , Hypothyroidism. History OB History ? 7. Para 3 ? D2H3V1Y7 Current Cell free DNA ?Low Risk analysis [...] (oz) ? 4 oz EFW by: ?Hadlock (YPX-GC-ET-FL) Extended Tibia ??46.0 mm 28w 0d 68% [...] Heart/Thorax: 4-chamber view. RVOT view. 3-vessel view. 5-dgcmdq-twnsvwe view. Great vessels. ? Right lung. Left [...] previously RVOT view ?normal 3-vessel view ??normal 8-oqtmvk-yfkjdsa view ??normal Aortic arch view ? normal [...] MVP measures 6.7 cm. Recommendations Please see [facility] recommendations from prior clinical and/or ultrasound report documentation. anatomic survey is incomplete (suboptimal spine images) due to late gestational age and suboptimal visualization. Patient is not scheduled to return for additional ultrasound. Please reschedule for specific concerns or indications. Subsequent follow up or other follow up as clinically determined by primary OB provider unless otherwise specified by [facility]. Results forwarded to ordering provider so they can follow up with the patient as necessary. Procedure Note Lala Gross MD - 02/06/2025 NAME: JUSTICE LEUNG : 1985 SEX: F Accession Number: [id number] ORDERING PHYSICIAN: MYA MASSEY REFERRING PHYSICIAN: MYA MASSEY Coding Procedures [id number]: Ultrasound, uterus, real time with image documentation, follow up, transabdominal approach per fetus 39521: Echocardiography, , cardiovascular system, real timewith image documentation (2D), with or without M-mode recording; follow-up or repeat study Indication Screening for follow-up survey, Screening for congenital cardiacabnormality , Gestational diabetes, AMA- Supervision of elderly , Supervision of high risk -(MOB son - hypospadia, MOB -son - laryngomalacia ), Obesity in , Hypothyroidism. History OB History 7. Para 3 [id number] Current Cell free DNA Low Risk analysis [...] EFW (oz) 4 oz EFW by: Hadlock (IFI-KH-QH-FL) Extended Tibia 46.0 mm 28w 0d 68% [...] Heart/Thorax: 4-chamber view. RVOT view. 3-vessel view. 4-rqvhuy-prijmwultrz. Great vessels. Right lung. Left lung. Diaphragm. [...] previously RVOT view normal 3-vessel view normal 8-xqompr-kpmeler view normal Aortic arch view normal Ductal [...] MVP measures 6.7 cm. Recommendations Please see [facility] recommendations from prior clinical and/or ultrasoundreport documentation. anatomic survey is incomplete (suboptimal spine images) due to late gestational age and suboptimal visualization. Patient is not scheduled to return for additional ultrasound. Pleasereschedule for specific concerns or indications. Subsequent follow up or other follow up as clinically determined byprimary OB provider unless otherwise specified by M. Results forwarded to ordering provider so they can follow up with thepatient as necessary. Authorizing ProviderResult TypeResult StatusCorey R Montez DOIMG US ORDERABLES Final Result from Last 3 Months Insurance Care Teams Team MemberRelationshipSpecialtyStart DateEnd Date Evans Casas DO PCP - GeneralFamily Medicine07/07/19
--- OUTSIDE RECORDS SUMMARY | 2025-03-09 18:01 | XMS_ITS | Clinical Summary ---
Author Organization [facility] Address [address] [place] [address] Care Team Providers Care Hosted Services Analyst Name Role Phone Pneelope Casas MD Primary Care Provider [phone] Allergies Active AllergyReactionsCriticalityNoted DateCommentsCiprofloxacinGI intolerance 04/19/2023iprofloxacin-Fluocinolone Pf05/19/2019 Other Reaction(s): Other: See Comments Dizziness, weakness sweating Uwhasfl8109/10/2017 Other Reaction(s): GI Disturbance, GI Upset Diarrhea Diarrhea Lactose Intolerance (Gi)11/15/2023 Other Reaction(s): Illness Cksbnxibmeu89/06/2021 Other Reaction(s): Other (See Comments) HijoxYoeoeKco95/26/2018 seasonal Other Reaction(s): Other (See Comments) Medications MedicationSigDispense QuantityRefillsLast FilledStart DateEnd DateStatus Multiple Vitamin (Multi-Vitamin) tablet Take 1 tablet by mouth in the morning.Active levothyroxine (Synthroid) 25 MCG tablet Indications:Abnormal TSHTake 1 tablet (25 mcg) by mouth in the morning. Take before meals. 30 tablet 110//[id number]//6Active enoxaparin (Lovenox) 40 MG/0.4ML injection 1 (one) time each day at the same timeActive docusate sodium (Colace) 50 MG capsule Take 100 mg by mouth in the morning and 100 mg before bedtime.Active polyethylene glycol, PEG, 3350 (Glycolax) 17 GM/SCOOP powder Take 17 g by mouth DailyActive Alcohol Swabs (Alcohol Prep Pad) 70 % pads Indications:Second trimester ([facility]-HCC),13 weeks gestation of ([facility]),Multigravida of advanced maternal age in second trimester ([facility]), Gestational diabetes mellitus (GDM), antepartum, gestational diabetes method of control unspecified([facility]),Elevated glucose tolerance testApply 1 Pad topically Daily Use four times daily to check FSBS. 150 each tive Blood Glucose Monitoring Suppl (D-MobileSpan Glucometer) w/Device kit Indications:Second trimester ([facility]),13 weeks gestation of ([facility]),Multigravida of advanced maternal age in second trimester ([facility]), Gestational diabetes mellitus (GDM), antepartum, gestational diabetes method of control unspecified([facility]),Elevated glucose tolerance test1 kit Daily Use four [...] (GDM), antepartum, gestational diabetes method of control unspecified([facility])Take 3 tablets (1,500 mg) by mouth in the evening. Take with meals Do not crush, chew, or split. 90 tablet 5Active Enoxaparin Sodium (Lovenox) 40 MG/0.4ML solution prefilled syringe Indications:Anticoagulant long-term use,Antiphospholipid antibody positive, Antiphospholipid antibody syndrome ([facility])Inject 40 mg as directed Daily for 30 doses 12 mL Expired Active Problems ProblemNoted DateDiagnosed DateH/O loss01/05/2025Multigravida of advanced maternal age in second trimester ([facility])01/05/2025Thyroid wtlddcv8701/05/2025 Referred otalgia of right ear11/19/2023LPRD (laryngopharyngeal reflux disease) 11/19/2023cute on chronic vesicular eczema of hands and feet11/15/2023lood pressure elevated without history of HTN11/15/2023MI 37.0-37.9, adult11/15/2023 Cold jlveikiimne78/18/2024eviated lsavxn9311/15/2023ry mouth11/15/2023Elevated blood pressure gpwgcgk4111/15/2023Environmental kwcdhpenz30/18/2024H/O: vdpagtipnoslqz41/18/2024History of karwfn6611/15/2023History of cerebrovascular teoqsmax80/18/2024 Overview (11/15/2023): reported by pt - related to antiphospholipid syndrome History of COVID-19011/15/2023History of gestational ovywefpx78/18/2024History of kidney xutbdr1911/15/2023Hx of iron deficiency wctpmm6511/15/2023Immunization not carried out because of patient ghezhbfb74/18/2024Iron yznjgylrmc31/18/2024 Irregular uterine fmawsqpi91/18/2024Morbid mngrpua0511/15/2023Nasal polyps 11/15/2023Non-hjunlw9511/15/2023OSA (obstructive sleep apnea)11/15/2023aresthesia of bilateral legs11/15/2023re-tzpyqiqp98/18/2024Right lower quadrant pain 4Right otitis wjfldwk2711/15/2023Salivary gland rcmuxqui57/18/2024Snoring 11/15/2023bdominal pain06/12/2023cute bronchitis due to cubozarrw90/13/2024 Tutikqn5206/12/2023ysfunction of eustachian tube06/12/20238595Pvnytmh22/13/2024 Kfyyioylzodi22/13/2024Inhalation zsivvl9806/12/2023Lactation problem ([facility]) 06/12/2023sychogenic uhekrlhjleijhvwj55/13/2024Suspected severe acute respiratory syndrome coronavirus 2 (SARS-CoV-2) /13/2024Hypoglycemia 06/12/2023rimary hypercoagulable state ([facility])08/01/2022estational diabetes mellitus (GDM), antepartum ([facility])01/26/2022Genitourinary zoezbhlh90/22/2022 Muscle dpxhedzzreqmw77/22/2022nticoagulant long-term use02/22/2020 Cerebrovascular accident (CVA) due to stenosis of middle cerebral artery 02/22/2020Anemia complicating childbirth ([facility])01/16/2020First degree perineal laceration during delivery ([facility])01/16/2020Acute posthemorrhagic kpanaa9901/16/2020Other immediate hemorrhage ([facility])01/16/2020 Personal history of urinary (tract) ekfehdskuu19/18/2020Single live ([facility])01/15/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 ([facility])01/08/2020Pruritus, ckqzngsupiw68/04/2020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)12/30/201932 weeks gestation of ([facility])11/28/2019Thrombocytopenia, mdyibykwakn71/23/2020Other general symptoms and signs10/28/2019Urinary tract rmkyidgyr46/18/2020 Qbhycmpuzmwl16/28/2020SVT (supraventricular tachycardia)08/26/2019 Antiphospholipid antibody syndrome ([facility])07/07/2019Other bacterial infections of unspecified site06/27/2019Less than 8 weeks gestation of ([facility]) 06/05/2019Encounter for supervision of normal , unspecified, first trimester ([facility])05/29/2019Cerebral infarction, xkemozhdssg15/17/2020 Deficiency of other specified B group qlrmwevh07/17/0792Jaoqhdccftkd69/17/2020 Unspecified condition associated with female genital organs and menstrual cycle 05/09/2019Other specified noninflammatory disorders of suucxd8202/21/2019Frequency of /23/2019Unspecified ovarian cyst, right side02/06/2019 Getzisyigae26/09/2019Coagulation defect, unspecified ([facility])02/05/2019 Dizziness and xjqtufnqz32/09/2019Long term (current) use of 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/ubhjzzgsupsga92/09/2019Other acute postprocedural pain02/03/2019 Pelvic and perineal pain02/01/2019Syncope and iudlsxxu83/04/2019Raised antibody titer09/25/2017Migraine without aura and without status migrainosus, not wnfrrzniram58/16/2018Antiphospholipid antibody joixyfnc86/14/2018Fatigue 12/29/2016Idiopathic progressive bmxynxtcvd45/01/2017Pain in joint12/29/2016 Estimated Date of WwmiicwuAufagsclFfd07/05/2026Based on last menstrual period of 07/28/2024 Encounters DateTypeDepartmentCare CjrqDgrwxixcegz29/07/2025linisync Result Encounter [facility] External Department Unsolicited Mya Herrmann, DO 03/04/2025bstract [facility] [address] [place] [address] Mya Herrmann, DO 03/03/2025Patient Outreach [facility] [address] [place] [place] [address] Petra Whitmore LPN 02/27/2025linisync Result Encounter [facility] External Department Unsolicited Mya Herrmann, DO 02/23/2025 9:00 AM EDTRoutine [facility] [address] [place] [phone] Mya Herrmann, DO Third trimester ([facility]); 30 weeks gestation of ([facility])02/23/2025amboo flowsheet [facility] [address] [place] [phone] Mya Herrmann, DO 02/20/2025linisync Result Encounter [facility] External Department Unsolicited Mya Herrmann, DO 02/20/2025linisync Result Encounter [facility] External Department Unsolicited Mya Herrmann, DO 02/17/2025bstract [facility] [address] [place] [phone] Mya Herrmann, DO 02/09/2025 10:30 AM EDTRoutine [place] [address] Mya Herrmann DO Third trimester ([facility]); 28 weeks gestation of ([facility]); Anemia complicating childbirth ([facility]); Anticoagulant long-term use; Antiphospholipid antibody positive; Blood pressure elevated without history of HTN; Coagulation defect, unspecified ([facility])02/09/2025bstract [facility] Borrero [facility] [place] [address] Mya Herrmann DO 02/03/2025Patient Outreach [facility] [address] [place] [phone] Petra Whitmore, DEB 01/21/2025Telephone [facility]re[facility] [place] [address] Celia Keith NP 01/19/2025 9:00 AM EDTRoutine [facility] [place] [address] Mya Herrmann DO Second trimester ([facility]); 25 weeks gestation of ([facility]); Gestational diabetes mellitus (GDM), antepartum, gestational diabetes method of control unspecified([facility]); Anticoagulant long-term use; Antiphospholipid antibody positive; Antiphospholipid antibody syndrome ([facility])01/19/2025bstract [facility]re[facility] [place] [address] Mya Herrmann DO 01/15/2025Telephone [facility] [place] [address] Lala Hess MA 01/06/2025Patient Outreach [facility] [address] [place] [address] Petra Whitmore, INDUSTRIAL AUTOMATION ENGINEER 01/05/2025 2:40 PM EDTRoutine [facility] [place] [phone] Mya Herrmann, DO Second trimester ([facility]); 23 weeks gestation of ([facility]); Thyroid disease ; Gestational diabetes mellitus (GDM), antepartum, gestational diabetes method of control unspecified([facility]); Multigravida of advanced maternal age in second trimester ([facility]); H/O loss; Lightheaded; Ggupqtbnz86/08/2025amboo flowsheet [facility] OBKATHIEN Gissell [facility] [place] [address] Mya Herrmann, DO 12/26/2024bstract [facility] Gissell [facility] [place] [address] Mya Herrmann, DO 12/18/2024bstract [facility]BGYN Gissell [facility] [place] [address] Mya Herrmann, DO 5Clinisync Result Encounter [facility]OMS External Department Unsolicited Mya Herrmann, DO 5Clinisync Result Encounter [facility] External Department Unsolicited Mya Herrmann, DO 12/12/2024Telephone [facility] [place] [address] Ariane Joseph, DEB 12/12/2024Patient Outreach [facility] [address] [place] [address] Petra Whitmore, INDUSTRIAL AUTOMATION ENGINEER 12/11/2024 9:10 AM [place]TRout[place] [address] Mya Herrmann, DO 19 weeks gestation of ([facility]); Second trimester ([facility]); Thyroid disease ; Multigravida of advanced maternal age in second trimester ([facility]); Gestational diabetes mellitus (GDM), antepartum, gestational diabetes method of control unspecified([facility])12/11/2024linisync Result Encounter [facility] External Department Unsolicited MontezMya, DO 12/11/2024amboo flowsheet [facility] [address] [facility] [place] [phone] Montez Mya, DO 12/08/2024Patient Outreach [facility] [address] [place] [address] Petra Whitmore LPN from Last 3 Months Family History Medical HistoryRelationNameCommentsCerebrovascular AccidentFatherDiabetesFather Heart problemsMaternal GrandfatherMental illnessMaternal GrandmotherCancer Paternal GrandfatherDiabetesPaternal GrandfatherCancerPaternal Grandmother DiabetesPaternal GrandmotherDiabetesSisterRelationNameStatusCommentsFather Maternal GrandfatherMaternal GrandmotherPaternal GrandfatherPaternal Grandmother Sister Social History Tobacco UseTypesPacks/DayYears UsedDateSmoking Tobacco: NeverSmokeless Tobacco: Never Tobacco Cessation:Counseling Given: Not Answered Alcohol UseStandard Drinks/WeekCommentsNever0 (1 standard drink = 0.6 oz pure alcohol)PHQ-2AnswerDate RecordedPatient Health Questionnaire-2 Lklei07105/03/2024 Estimated Date of CivawehcXlkdbjtqJag10/05/2026ased on last menstrual period of 07/28/2024Sex and Gender InformationValueDate RecordedSex Assigned at BirthNot on fileLegal SmxZddyig13/15/2023 11:19 PM EDTGender IdentityNot on file Sexual OrientationNot on file Last Filed Vital Signs Vital SignReadingTime TakenCommentsBlood Lixoezmv613/7210 9:26 AM EDT Pulse--Temperature--Respiratory Rate--Oxygen Saturation--Inhaled Oxygen Concentration--Akdylm52.5 kg (210 lb 8 oz)02/23/2025 9:26 AM JZAIdwdey890.6 cm (5' 6 )11/19/2023 1:48 PM EDTBody Mass Index33.98011/19/2023 1:48 PM EDT Plan of Treatment DateTypeDepartmentCare Team (Latest Contact Info)Xqippyqanjk03/11/2025 9:50 AM ESTRoutine [facility] [address] [facility] [place] [phone] Mya Herrmann, [address] [facility] [address] [place] [address] Health MaintenanceDue DateLast DoneCommentsHPV/Leqhws2610/22/2015COVID-19 Vaccine ( season)2024Influenza Vaccine (#1)2024ervical Cancer Lnsjsfpjl49/18/2025Pap Smear2Pneumococcal Vaccine: Pediatrics (0 to 5 Years) and At-Risk Patients (6 to 64 Years)Aged OutNo longer eligible based on patient's age to complete this topic Procedures Procedure NamePriorityDate/TimeAssociated DiagnosisCommentsUS OB BPP W NON-KOUYIX2303/06/2025 8:10 AM EST US OB BPP W NON-VGVOFL0102/27/2025 10:53 AM EDT POCT URINALYSIS DDGWUGYKPafjkas52/27/2025 9:38 AM EDT 30 weeks gestation of ([facility]) US OB BEODGL0502/20/2025 8:37 AM EDT US OB BPP W NON-JWJASM7202/20/2025 8:37 AM EDT POCT URINALYSIS NJYFZLODHhwspcg37/13/2025 10:55 AM EDT 28 weeks gestation of ([facility]) POCT URINALYSIS IZBKZLOWUnwbysf07/22/2025 9:33 AM EDT Second trimester ([facility]) POCT URINALYSIS PZHBLVHDTqjdwgb46/08/2025 3:25 PM EDT Second trimester ([facility]) US OB CERVICAL LZLNNC0712/16/2024 8:41 PM EDT [facility] URINE MICROSCOPIC AHMUIjptvxh18/19/2025 6:32 PM EDT [facility] UA (CLEAN/CATCH) HOSE SUSPENDER CUTTER/MICRO IF IND.Eveswtu3912/16/2024 6:32 PM EDT ALL THYROID STIM MLNQMPIFgczjny56/14/2025 10:50 AM EDT POCT URINALYSIS ZUDFPQSGAbkyavw90/14/2025 9:36 AM EDT 19 weeks gestation of ([facility]) Second trimester ([facility]) PAP IPGGSXsojeyo99/18/2022 12:00 AM EDTfrom Last 3 Months or Most Recently Relevant to Health Maintenance Results * US OB BPP W NON-STRESS (03/06/2025 8:10 AM EST) Only the most recent of3 resultswithin the time period is included. Anatomical RegionLateralityModalityOtherSpecimen (Source)Anatomical Location / LateralityCollection Method / VolumeCollection TimeReceived Time03/06/2025 8:10 AM EST Narrative 03/06/2025 8:13 AM EST [facility] ?[address] ? [place] [address] ? Ultrasound Report ? Signed ? Patient: MADHU RENDON ?MR#: [id number] ?? : 1985 ?Acct:[id number] ?? Age/Sex: 39 / F ?ADM Date: 03/05/25 ?? Loc: US ? Attending Dr: Mya Herrmann D.O. ? Ordering Physician: Mya Herrmann D.O. ?? Date of Service: 03/05/25 ?? Procedure(s): US OB BPP w non-stress ?? Accession Number(s): [id number] ? cc: Mya Herrmann D.O.; Physician,Non-Staff M.D. ? [facility] ? [address] ? [place] [address] ? Patient Name: ?? MADHU RENDON ? MRN: [facility]:[id number] ? date: 1985 ?Sex: F ?? Assigned Patient Location: [facility] ?? Current Patient Location: ? Accession/Order Number: [id number] ?? Exam Date: 03/05/2025 ??19:15 ?Report Date: [...] Dictation Location: RADIO-PC-02 ? Electronically authenticated by: [id number] ??Y ?? Date: 03/06/2025 ??08:10 ? Dictated By: ?Pamela Pisano M.D. ? Signed By: ?03/06/25 0813 ? DD/ 0810 ? TD/TT: ? Fishing Hand: Procedure Note Radiology, Radiologist, MD - 03/06/2025 [place] [address] Ultrasound Report Signed Patient: MADHU RENDON [facility]#: [id number] : 1985Acct:[id number] Age/Sex: 39 / FADM Date: 03/05/25 Loc: US Attending Dr: Mya Herrmann D.O. Ordering Physician: Mya Herrmann D.O. Date of Service: 03/05/25 Procedure(s): US OB BPP w non-stress Accession Number(s): [id number] cc: Mya Herrmann D.O.; Physician,Non-Staff Tamia The [place] [address] Patient Name: MADHU RENDON MRN: [facility]:[id number] date: 1985 Sex: F Assigned Patient Location: [facility] Current Patient Location: Accession/Order Number: [id number] Exam Date: 03/05/2025 19:15 Report Date: 03/06/2025 [...] Pisano M.D. 03/06/2025 8:10 AM Dictation Location: [place] [address] Electronically authenticated by: [id number] Y Date: 508:10 Dictated By: Pamela Pisano M.D. Signed By:03/06/25812 DD/ 9 TD/TT: Fishing Hand: Authorizing ProviderResult TypeResult StatusCorey Montez DOCLINISYNC IMAGINGFinal [...] Location / LateralityCollection Method / VolumeCollection TimeReceived KtjsYgpuh70/27/2025 9:38 AM EDT Narrative Authorizing ProviderResult TypeResult StatusCorey Montez DOPOINT OF CARE TEST ENTER/EDIT ORDERABLESFinal Result * US OB GROWTH (02/20/2025 8:37 AM EDT)Anatomical RegionLateralityModalityOther Specimen (Source)Anatomical Location / LateralityCollection Method / Volume Collection TimeReceived Time02/20/2025 8:37 AM EDT Narrative 02/20/2025 8:40 AM EDT [facility] ?[address] ? [place] [address] ? Ultrasound Report ? Signed ? Patient: MADHU RENDON ?MR#: [id number] ?? : 1985 ?Acct:[id number] ?? Age/Sex: 39 / F ?ADM Date: 02/19/25 ?? Loc: US ? Attending Dr: Mya Herrmann D.O. ? Ordering Physician: Mya Herrmann D.O. ?? Date of Service: 02/19/25 ?? Procedure(s): US OB growth ?? Accession Number(s): [id number] ? cc: Mya Herrmann D.O.; Physician,Non-Staff M.D. ? [facility] ? [address] ? [place] [address] ? Patient Name: ?? MADHU RENDON ? MRN: [facility]:[id number] ? date: 1985 ?Sex: F ?? Assigned Patient Location: LAB ?? Current Patient Location: ? Accession/Order Number: [id number] ?? Exam Date: 02/19/2025 ??19:47 ?Report Date: [...] Dictation Location: RADIO-PC-02 ? Electronically authenticated by: [id number] ??Y ?? Date: 02/20/2025 ??08:37 ? Dictated By: ?Pamela Pisano M.D. ? Signed By: ?10/24/25 0840 ? DD/ 0837 ? TD/TT: ? Fishing Hand: Procedure Note Radiology, Radiologist, - 02/20/2025 [place] [address] Ultrasound Report Signed Patient: MADHU RENDON SMR#: [id number] : 1985Acct:[id number] Age/Sex: 39 / FADM Date: 02/19/25 Loc: US Attending Dr: Mya Herrmann D.O. Ordering Physician: Mya Herrmann D.O. Date of Service: 02/19/25 Procedure(s): US OB growth Accession Number(s): [id number] cc: Mya Herrmann D.O.; Physician,Non-Staff MGiovanni The [place] [id number] Patient Name: MADHU RENDON MRN: [id number]:[id number] date: 1985 Sex: F Assigned Patient Location: LAB Current Patient Location: Accession/Order Number: [id number] Exam Date: 02/19/2025 19:47 Report Date: 02/20/2025 [...] Pisano M.D. 02/20/2025 8:37 AM Dictation Location: [place] [address] Electronically authenticated by: [id number] Y Date: 508:37 Dictated By: Pamela Pisano M.D. Signed By:02/20/25 0840 DD/ 0837 TD/TT: Fishing Hand: Authorizing ProviderResult TypeResult StatusCorey Montez DOCLINISYNC IMAGINGFinal Result * US OB CERVICAL LENGTH (12/16/2024 8:41 PM EDT)Anatomical RegionLaterality ModalityOtherSpecimen (Source)Anatomical Location / LateralityCollection Method / VolumeCollection TimeReceived Time12/16/2024 8:41 PM EDT Narrative 12/16/2024 8:43 PM EDT [facility] ?[address] ? [place] [address] ? Ultrasound Report ? Signed ? Patient: JUSTICE,MADHU Tian ?MR#: [id number] ?? : 1985 ?Acct:[id number] ?? Age/Sex: 39 / F ?ADM Date: ?? Loc: [facility] ??251-1 ? Attending Dr: Mya Herrmann D.O. ? Ordering Physician: Mya Herrmann D.O. ?? Date of Service: 12/16/24 ?? Procedure(s): US OB cervical length ?? Accession Number(s): [id number] ? cc: Mya Herrmann D.O.; PENELOPE CASAS ? [facility] ? [address] ? [place] [address] ? Patient Name: ?? MADHU RENDON ? MRN: [facility]:[id number] ? date: 1985 ?Sex: F ?? Assigned Patient Location: FB ?? Current Patient Location: ? Accession/Order Number: [id number] ?? Exam Date: 12/16/2024 ??20:39 ?Report Date: [...] M.D. ??12/16/2024 8:41 PM ? Dictation Location: [facility]- ? Electronically authenticated by: [id number] ??Y ?? Date: 12/16/2024 ??20:41 ? Dictated By: ?Robert Beltrán D.O. ? Signed By: ?12/16/242042 ? DD/ 40 ? TD/TT: ? Fishing Hand: Procedure Note Radiology, Radiologist, MD - 12/16/2024 [place] [address] Ultrasound Report Signed Patient: MADHU RENDON [facility]#: [id number] : 1985Acct:[id number] Age/Sex: 39 / FADM Date: Loc: [facility] 251-[address]: Mya Herrmann D.O. Ordering Physician: Mya Herrmann D.O. Date of Service: 12/16/24 Procedure(s): US OB cervical length Accession Number(s): [id number] cc: Mya Herrmann D.O.; PENELOPE CASAS [place] [id number] Patient Name: MADHU RENDON MRN: [facility]:[id number] date: 1985 Sex: F Assigned Patient Location: [facility] Current Patient Location: Accession/Order Number: [id number] Exam Date: 12/16/2024 20:39 Report Date: 12/16/2024 [...] Beltrán M.D. 12/16/2024 8:41 PM Dictation Location: [place] [address] Electronically authenticated by: [id number] Y Date: 0:41 Dictated By: Robert Beltrán D.O. Signed By:12/16/242042 DD/ 40 TD/TT: Fishing Hand: Authorizing ProviderResult TypeResult StatusCorey Montez DOCLINISYNC IMAGINGFinal Result * (ABNORMAL) [facility] URINE MICROSCOPIC ONLY (12/16/2024 6:32 PM EDT)ComponentValue Ref RangeTest MethodAnalysis TimePerformed AtPathologist SignatureTBH WBC2-5 (A)NONE SEEN #/HPFTBHTBH RBC0-20 - 2 #/HPFTBHBACTERIA URINESMALL(A)NONE SEEN #/HPFTBHMUCUS URINENONE SEENNONE SEENTBHSQUAMOUS EPITHELIAL CELL URINEMANY(A) NONE/RARE #/LPFTBHCRYSTALS SEEN?None SeenNone Seen #/HPFTBHCAST SEEN?NONE SEEN NONE SEEN #/LPFTBHURINE CULTURE INDICATEDYES-LCTBHSpecimen (Source)Anatomical Location / LateralityCollection Method / VolumeCollection TimeReceived Time 12/16/2024 6:32 PM EDT12/16/2024 6:40 PM EDT Narrative [facility] - 12/16/2024 7:09 PM EDT Authorizing ProviderResult TypeResult StatusCorey Montez DOCLINISYNCFinal Result Performing OrganizationAddressCity/State/ZIP CodePhone Number [facility] * (ABNORMAL) [facility] UA (CLEAN/CATCH) HOSE SUSPENDER CUTTER/MICRO IF IND. (12/16/2024 6:32 PM EDT) ComponentValueRef RangeTest MethodAnalysis TimePerformed AtPathologist SignatureCOLOR URINELT. YELLOWYELLOWTBHCLARITY URINECLEARCLEARTBHSPECIFIC GRAVITY URINE<=1.005(A)1.005 - 1.025TBHPH URINE6.05.0 - 9.0TBHPROTEIN URINE NEGATIVENEG/TRACE mg/dLTBHGLUCOSE URINE UANEGATIVENEGATIVE mg/dLTBHBILIRUBIN URINENEGATIVENEGATIVETBHKETONES URINENEGATIVENEGATIVE mg/dLTBHBLOOD URINE NEGATIVENEGATIVETBHNITRITE URINENEGATIVENEGATIVETBHUROBILINOGEN URINE0.20.2 - 1.0 EU/dLTBHLEUKOCYTE ESTERASE URINESMALL(A)NEGATIVETBHURINE MICROSCOPIC INDICATEDYESTBHSpecimen (Source)Anatomical Location / LateralityCollection Method / VolumeCollection TimeReceived Time12/16/2024 6:32 PM EDT12/16/2024 6:40 PM EDT Narrative [facility] - 12/16/2024 7:09 PM EDT Authorizing ProviderResult TypeResult StatusCorey Montez DOCLINISYNCFinal Result Performing OrganizationAddressCity/State/ZIP CodePhone Number [facility] * ALL THYROID STIM HORMONE (12/11/2024 [...] Teams Team MemberRelationshipSpecialtyStart DateEnd Penelope Casas MD [facility] [place] [address] PCP - GeneralFamily Medicine11/07/23
--- OUTSIDE RECORDS SUMMARY | 2025-03-09 18:01 | XMS_ITS | Encounter Summary ---
Author Organization [facility] Address [address] [place] [address] Care Team Providers Care Quality Assurance Advisor Name Role Phone Penelope Casas MD Primary Care Provider [phone] Encounter Details DateTypeDepartmentCare Team (Latest Contact Info)Gchwvmcyafy49/07/2024Clinisync Result Encounter [facility] External Department Unsolicited Mya Herrmann, DO [address] [place], [place] [id number] Social History Tobacco UseTypesPacks/DayYears UsedDateSmoking Tobacco: NeverSmokeless Tobacco: NeverAlcohol UseStandard Drinks/WeekCommentsNever0 (1 standard drink = 0.6 oz pure alcohol)PHQ-2AnswerDate RecordedPatient Health Questionnaire-2 Score0 01/06/2025CommentsYesSex and Gender InformationValueDate RecordedSex Assigned at BirthNot on fileLegal DldPslwue52/15/2023 11:19 PM EDTGender IdentityNot on fileSexual OrientationNot on filedocumented as of this encounter Functional Status * Over the past 2 weeks, how often have you been bothered by any of the following problems?QuestionAnswerDate of AssessmentAuthorLittle interest or pleasure in doing thingsNot at all01/06/2025 9:35 AM Petra Flores LPN Feeling down, depressed, or hopelessNot at all01/06/2025 9:35 AM Petra Flores LPNPatient Health Questionnaire-2 Gpaji229 9:35 AM Petra Flores LPN documented as of this encounter Plan of Treatment DateTypeDepartmentCare Team (Latest Contact Info)Wagfagepegv00/11/2025 9:50 AM ESTRoutine [facility] [address] [place] [address] Mya Herrmann, DO [address] [place] [address] documented as of this encounter Procedures Procedure NamePriorityDate/TimeAssociated DiagnosisCommentsUS OB TRANSVAGINAL 04/05/2024 4:39 AM EST documented in this encounter Results * US OB TRANSVAGINAL (04/05/2024 4:39 AM EST)Anatomical RegionLateralityModality OtherSpecimen (Source)Anatomical Location / LateralityCollection Method / VolumeCollection TimeReceived Time04/05/2024 4:39 AM EST Narrative 04/05/2024 4:42 AM EST [facility] ?[address] ? [place] [address] ? Ultrasound Report ? Signed ? Patient: Sanna Rendon ?MR#: [id number] ?? : 1985 ?Acct:[id number] ?? Age/Sex: 38 / F ?ADM Date: 04/04/24 ?? Loc: [facility] ? Attending Dr: Mya Herrmann D.O. ? Ordering Physician: Mya Herrmann D.O. ?? Date of Service: 04/04/24 ?? Procedure(s): US OB transvaginal ?? Accession Number(s): [id number] ? cc: Mya Herrmann D.O.; PENELOPE CASAS ? [facility] ? [address] ? [place] [address] ? Patient Name: ?? SANNA RENDON ? MRN: [id number] ? date: 1985 ?Sex: F ?? Assigned Patient Location: [facility] ?? Current Patient Location: ? Accession/Order Number: [id number] ?? Exam Date: 04/04/2024 ??09:43 ?Report Date: [...] ?04/05/24441 ? DD/ 0439 ? TD/TT: ? Reimbursement Auditor: Procedure Note Radiology, Radiologist, MD - 04/05/2024 The [place] [id number] Ultrasound Report Signed Patient: Sanna Rendon SMR#: [id number] : 1985Acct:[id number] Age/Sex: 38 / FADM Date: 04/04/24 Loc: [facility] Attending Dr: Mya Herrmann D.O. Ordering Physician: Mya Herrmann D.O. Date of Service: 04/04/24 Procedure(s): US OB transvaginal Accession Number(s): [id number] cc: Mya Herrmann D.O.; PENELOPE CASAS [address] [address] Patient Name: SANNA RENDON MRN: [id number] date: 1985 Sex: F Assigned Patient Location: [facility] Current Patient Location: Accession/Order Number: [id number] Exam Date: 04/04/2024 09:43 Report Date: 04/05/2024 [...] M.D. Signed By:04/05/24 0442 DD/ 0439 TD/TT: Reimbursement Auditor: Authorizing ProviderResult TypeResult StatusCorecarmen Herrmann DOCLINISYNC IMAGINGFinal Result documented in this encounter Visit Diagnoses Not on filedocumented in this encounter Care Teams Team MemberRelationshipSpecialtyStart DateEnd Date Penelope Casas MD [address] [place] [address] PCP - GeneralFamily Medicine11/07/23documented as of this encounter
--- OUTSIDE RECORDS SUMMARY | 2025-03-09 18:01 | XMS_ITS | Encounter Summary ---
Author Organization [facility] Address [address] [place] [address] Care Team Providers Care Dry House Operator Name Role Phone Evans Casas MD Primary Care Provider [phone] Encounter Details DateTypeDepartmentCare Team (Latest Contact Info)Xrvdfejktoz55/31/2025linisync Result Encounter [facility] External Department Unsolicited Mya Herrmann DO [address] [place] [address] Social History Tobacco UseTypesPacks/DayYears UsedDateSmoking Tobacco: NeverSmokeless Tobacco: NeverAlcohol UseStandard Drinks/WeekCommentsNever0 (1 standard drink = 0.6 oz pure alcohol)PHQ-2AnswerDate RecordedPatient Health Questionnaire-2 Score0 01/06/2025Estimated Date of HesxjxoeJocpskaqFut24/05/2026ased on last menstrual period of 07/28/2024Sex and Gender InformationValueDate RecordedSex Assigned at BirthNot on fileLegal CclGftnoj96/15/2023 11:19 PM EDTGender IdentityNot on fileSexual OrientationNot on filedocumented as of this encounter Plan of Treatment DateTypeDepartmentCare Team (Latest Contact Info)Evgtlvsysft37/11/2025 9:50 AM ESTRoutine [facility] [place] [facility] [address] [place] [phone] Mya Herrmann DO [address] [place] [address] documented as of this encounter Procedures Procedure NamePriorityDate/TimeAssociated DiagnosisCommentsUS OB BPP W NON-OZDVEC0902/27/2025 10:53 AM EDT documented in this encounter Results * US OB BPP W NON-STRESS (02/27/2025 10:53 AM EDT)Anatomical Region LateralityModalityOtherSpecimen (Source)Anatomical Location / Laterality Collection Method / VolumeCollection TimeReceived Time02/27/2025 10:53 AM EDT Narrative 02/27/2025 10:56 AM EDT The [facility] ?[address] ? [place], [place] [address] ? Ultrasound Report ? Signed ? Patient: SANNA RENDON S ?MR#: [id number] ?? : 1985 ?Acct:[id number] ?? Age/Sex: 39 / F ?ADM Date: 02/26/25 ?? Loc: US ? Attending Dr: Mya Herrmann D.O. ? Ordering Physician: Mya Herrmann D.O. ?? Date of Service: 02/26/25 ?? Procedure(s): US OB BPP w non-stress ?? Accession Number(s): [id number] ? cc: Mya Herrmann D.O.; Physician,Non-Staff M.D. ? [facility] ? [address] [facility] ? [place] [address] ? Patient Name: ?? SANNA RENDON ? MRN: [facility]:[id number] ? date: 1985 ?Sex: F ?? Assigned Patient Location: US ?? Current Patient Location: ? Accession/Order Number: [id number] ?? Exam Date: 02/26/2025 ??19:42 ?Report Date: [...] Dictation Location: RADIO-PC-02 ? Electronically authenticated by: [id number] ??Y ?? Date: 02/27/2025 ??10:53 ? Dictated By: ?Pamela Pisano M.D. ? Signed By: ?10/31/25 1056 ? DD/ 1053 ? TD/TT: ? Patient Services Coordinator: Procedure Note Radiology, Radiologist, - 02/27/2025 [place] [address] Ultrasound Report Signed Patient: SANNA RENDON SMR#: [id number] : 1985Acct:[id number] Age/Sex: 39 / FADM Date: 02/26/25 Loc: US Attending Dr: Mya Herrmann D.O. Ordering Physician: Mya Herrmann D.O. Date of Service: 02/26/25 Procedure(s): US OB BPP w non-stress Accession Number(s): [id number] cc: Mya Herrmann D.O.; Physician,Non-Staff M.D. The [place] [id number] Patient Name: SANNA RENDON MRN: [id number] date: 1985 Sex: F Assigned Patient Location: US Current Patient Location: Accession/Order Number: [id number] Exam Date: 02/26/2025 19:42 Report Date: 02/27/2025 [...] Pisano M.D. 02/27/2025 10:53 AM Dictation Location: [place] [address] Electronically authenticated by: [id number] Y Date: 0:53 Dictated By: Pamela Pisano M.D. Signed By:02/27/25 1056 DD/ 1053 TD/TT: Patient Services Coordinator: Authorizing ProviderResult TypeResult StatusCorey Montez DOCLINISYNC IMAGINGFinal Result documented in this encounter Visit Diagnoses Not on filedocumented in this encounter Care Teams Team MemberRelationshipSpecialtyStart DateEnd Date Evans Casas MD [address] [place] [address] PCP - GeneralFamily Medicine11/07/23documented as of this encounter
--- OUTSIDE RECORDS SUMMARY | 2025-03-09 18:01 | XMS_ITS | Encounter Summary ---
Author Organization [facility] Address [address] [place] [address] Care Team Providers Care Clinical Services Specialist Name Role Phone Penelope Casas MD Primary Care Provider [phone] Encounter Details DateTypeDepartmentCare Team (Latest Contact Info)Ekuzkjjjaft41/11/2025linisync Result Encounter [facility] External Department Unsolicited Mya Herrmann, DO [address] [facility] [address] [facility] [address] [place], [place] [address] Social History Tobacco UseTypesPacks/DayYears UsedDateSmoking Tobacco: NeverSmokeless Tobacco: NeverAlcohol UseStandard Drinks/WeekCommentsNever0 (1 standard drink = 0.6 oz pure alcohol)PHQ-2AnswerDate RecordedPatient Health Questionnaire-2 Score0 01/06/2025CommentsYesSex and Gender InformationValueDate RecordedSex Assigned at BirthNot on fileLegal OscMebxdn55/15/2023 11:19 PM EDTGender IdentityNot on fileSexual OrientationNot on filedocumented as of this encounter Functional Status * Over the past 2 weeks, how often have you been bothered by any of the following problems?QuestionAnswerDate of AssessmentAuthorLittle interest or pleasure in doing thingsNot at all01/06/2025 9:35 AM Petra Flores LPN Feeling down, depressed, or hopelessNot at all01/06/2025 9:35 AM Petra Flores LPNPatient Health Questionnaire-2 Ynuhh117 9:35 AM Petra Flores LPN documented as of this encounter Plan of Treatment DateTypeDepartmentCare Team (Latest Contact Info)Hcamohlojlf53/11/2025 9:50 AM ESTRoutine [facility] [address] [place] [address] Mya Herrmann, DO [address] [facility] [place] [address] documented as of this encounter Procedures Procedure NamePriorityDate/TimeAssociated DiagnosisCommentsUS NTAEBD1105/10/2024 4:02 PM EST PROTEIN S-ZLURFAMEjsaskl23/11/2025 8:44 AM EST PROTEIN C-XWOOFKBTSNOmriule65/11/2025 8:44 AM EST FACTOR V LEIDEN WICONVJZUazvdyn76/11/2025 8:44 AM EST TBH ANTITHROMBIN BVBFKAKMGwdfybz19/11/2025 8:44 AM EST METRO VLTLOKKDEJINCvglvrw61/11/2025 8:44 AM EST ALL MISCELLANEOUS LVZDAhvezkc23/11/2025 8:44 AM EST ALL IMMUNOGLOBULIN ZSgkcheb70/11/2025 8:44 AM EST ALL IMMUNOGLOBULIN RSflmvpf58/11/2025 8:44 AM EST documented in this encounter Results * US PELVIS (05/10/2024 4:02 PM EST)Anatomical RegionLateralityModalityOther Specimen (Source)Anatomical Location / LateralityCollection Method / Volume Collection TimeReceived Time05/10/2024 4:02 PM EST Narrative 05/10/2024 4:04 PM EST [facility] ?[address] ? [place] [address] ? Ultrasound Report ? Signed ? Patient: JUSTICE,MADHU S ?MR#: [id number] ?? : 1985 ?Acct:[id number] ?? Age/Sex: 38 / F ?ADM Date: ?? Loc: [facility] ??258-1 ? Attending Dr: Mya Herrmann D.O. ? Ordering Physician: Mya Herrmann D.O. ?? Date of Service: 05/10/24 ?? Procedure(s): US pelvis ?? Accession Number(s): [id number] ? cc: Mya Herrmann D.O.; PENELOPE CASAS ? [facility] ? [address] ? [place] [address] ? Patient Name: ?? MADHU RENDON ? MRN: [facility]:[id number] ? date: 1985 ?Sex: F ?? Assigned Patient Location: [facility] ?? Current Patient Location: [facility] ?? Accession/Order Number: [id number] ?? Exam Date: 05/10/2024 ??14:36 ?Report Date: [...] 1604 ? DD/ 1602 ? TD/TT: ? Food Safety Scientist: Procedure Note Radiology, Radiologist, MD - 05/10/2024 [place] [address] Ultrasound Report Signed Patient: MADHU RENDON [facility]#: [id number] : 1985Acct:[id number] Age/Sex: 38 / FADM Date: Loc: [facility] 258-[address]: Mya Herrmann D.O. Ordering Physician: Mya Herrmann D.O. Date of Service: 05/10/24 Procedure(s): US pelvis Accession Number(s): [id number] cc: Mya Herrmann D.O.; PENELOPE CASAS [place] [id number] Patient Name: MADHU RENDON MRN: [id number] date: 1985 Sex: F Assigned Patient Location: [facility] Current Patient Location: [facility] Accession/Order Number: [id number] Exam Date: 05/10/2024 14:36 Report Date: 05/10/2024 [...] M.D. Signed By:05/10/24 1604 DD/ 1602 TD/TT: Food Safety Scientist: Authorizing ProviderResult TypeResult StatusCorey Montez DOCLINISYNC IMAGINGFinal Result * FACTOR V LEIDEN MUTATION (05/10/2024 8:44 AM EST)ComponentValueRef RangeTest MethodAnalysis TimePerformed AtPathologist SignatureTBH FACTOR V LEIDEN MUTATIONComment.TBHComment: Result: c.1601G>A (p.Bhk928Ujx) - Not Detected This result is not associated with an increased risk for venous thromboembolism. See Additional Clinical Information and Comments. Additional Clinical Information: Venous thromboembolism is a multifactorial disease influenced by genetic, environmental, and circumstantial risk factors. The c.1601G>A (p. Mdy612Och) variant in the F5 gene, commonly referred [...] c.*97G>A variant and Factor V Leiden (PMID: 05583512). Additional risk factors include but are not [...] health care providers to discuss results at [phone] ([phone]). Test Details: Variant Analyzed: c.1601G>A (p. Fom962Dht), referred to as Factor V Leiden Methods/Limitations: [...] developed and its performance characteristics determined by [facility]. It has not been cleared or approved by the Food and Drug Administration. References: Jomar S, Loren AK, Das R, Solo WW, Jose JH; ACMG Professional Practice and Guidelines Committee. Addendum: [employer] consensus statement on factor V Leiden mutation testing. Nisha Med. 2020Jul 02. doi: 10.1038/i26320-838-56667-m. PMID: 61036841. Naina POWERS. Factor V Leiden Thrombophilia. 1998September 10 (Updated 2017May 03). In: Emeterio EDWARDS, Radha HH, Clayton RA, et al., editors. Cassie(Spencer) (Internet). [place] ([place]): [facility]; 8171-0664. Available from: https://www.ncbi.nlm.nih.gov/books/GZS8724/ Hudson S, Loren AK, Trent X, Margarito B, Jo-Ann EB, Lena P, Rhiannon CS; ACMG Laboratory Hoist Cylinder Loader Committee. Venous thromboembolism laboratory testing (factor V Leiden and factor II c.*97G>A), 2018 update: a technical standard of the [employer] and [employer]omics (ACMG). Nisha Med. 2018 Mar;20(12):5896-9255. doi: 10.1038/o88503-870-5674-l. Epub 2017Feb 01. PMID: 81655432. TBH REVIEWED BYComment.TBHComment: Technical Component performed at [facility] Professional Component performed by: [facility] Rosa Isela Lee, Ph.D., [facility] Director, Molecular Genetics [id number] [place] [address] Performed at: ??TG - [facility] [address] [place], [place] ??[id number] Emergency Dispatch Operator: Kolton Storm [facility], Phone: ??[phone] Specimen (Source)Anatomical Location / LateralityCollection Method / Volume Collection TimeReceived Time05/10/2024 8:44 AM EST05/10/2024 8:52 AM EST Narrative [facility] - 05/15/2024 2:08 PM EST Authorizing ProviderResult TypeResult StatusCorey Montez DOLAB BLOOD ORDERABLES Final ResultPerforming OrganizationAddressCity/State/ZIP CodePhone Number [facility] * ALL MISCELLANEOUS TEST (05/10/2024 8:44 AM EST)ComponentValueRef RangeTest MethodAnalysis TimePerformed AtPathologist SignatureMISCELLANEOUS TESTCOMMENT. TBHComment: Test Ordered: [id number] , ID Ab Cytomegalovirus (CMV) Ab, IgG [...] Positive >1.1 Performed at: ??CB - [facility] [address] ??[id number] Emergency Dispatch Operator: Dusty Miles PhD, Phone: ??[phone] Performed at: ??BN - [facility] ??[id number] Emergency Dispatch Operator: China Ching MD, Phone: ??[phone] Specimen (Source)Anatomical Location / LateralityCollection Method / Volume Collection TimeReceived Time05/10/2024 8:44 AM EST05/10/2024 10:27 AM EST Narrative [facility] - 05/13/2024 3:11 PM EST [id number] , Infectious Disease Antibody Profile Authorizing ProviderResult TypeResult StatusCorey Montez DOCLINISYNCFinal Result Performing OrganizationAddressCity/State/[facility] CodePhone Number [facility] * (ABNORMAL) [facility] ANTITHROMBIN ACTIVITY (05/10/2024 8:44 AM EST)ComponentValueRef RangeTest MethodAnalysis TimePerformed AtPathologist SignatureTBH ANTITHROMBIN JGWKHWHZ626(A)75 - 135 %TBHComment: An elevated antithrombin activity is of no known clinical significance. Direct Xa inhibitor anticoagulants such as rivaroxaban, apixaban and edoxaban will lead to spuriously elevated antithrombin activity levels possibly masking a deficiency. Performed at: ?? - [facility] [address] ??[id number] Emergency Dispatch Operator: China Ching MD, Phone: ??[phone] Specimen (Source)Anatomical Location / LateralityCollection Method / Volume Collection TimeReceived Time05/10/2024 8:44 AM EST05/10/2024 8:52 AM EST Narrative [facility] - 05/12/2024 2:08 PM EST Authorizing ProviderResult TypeResult StatusCorey Montez DOCLINISYNCFinal Result Performing OrganizationAddressty/State/ZIP CodePhone Number [facility] * PROTEIN S-ANTIGEN (05/10/2024 8:44 AM EST)ComponentValueRef RangeTest Method Analysis TimePerformed AtPathologist SignaturePROTEIN S, VERHJ6551 - 150 %TBH Comment: This test was developed and its performance characteristics determined by [facility]. It has not been cleared or approved by the Food and Drug Administration. PROTEIN S, [id number] - 136 %TBHSpecimen (Source)Anatomical Location / Laterality Collection Method / VolumeCollection TimeReceived Time05/10/2024 8:44 AM EST 05/10/2024 9:48 AM EST Narrative [facility] - 05/12/2024 2:08 PM EST Authorizing ProviderResult TypeResult StatusCorey Montez DOLAB BLOOD ORDERABLES Final ResultPerforming OrganizationAddressCity/State/[facility] CodePhone Number [facility] * PROTEIN C-FUNCTIONAL (05/10/2024 8:44 AM EST)ComponentValueRef RangeTest MethodAnalysis TimePerformed AtPathologist SignaturePROTEIN C-FHLJAVXYWG40939 - 180 %TBHComment: Performed at: ?? - [facility] ??[id number] Emergency Dispatch Operator: China Ching MD, Phone: ??[phone] Specimen (Source)Anatomical Location / LateralityCollection Method / Volume Collection TimeReceived Time05/10/2024 8:44 AM EST05/10/2024 9:48 AM EST Narrative [facility] - 05/12/2024 2:08 PM EST Authorizing ProviderResult TypeResult StatusCorey Montez DOLAB BLOOD ORDERABLES Final ResultPerforming OrganizationAddRothman Orthopaedic Specialty Hospitalty/State/[facility] CodePhone Number [facility] * METRO HOMOCYSTEINE (05/10/2024 8:44 [...] MethodAnalysis TimePerformed AtPathologist SignatureTBH IMMUNOGLOBULIN G, [place]N 491344 - 1602 mg/dLTBHComment: Performed at: ??[address] ??[id number] Emergency Dispatch Operator: Dusty Miles PhD, Phone: ??[phone] Specimen (Source)Anatomical Location / LateralityCollection Method / Volume Collection TimeReceived Time05/10/2024 8:44 AM EST05/10/2024 8:52 AM EST Narrative [facility] - 05/11/2024 7:08 AM EST Authorizing ProviderResult TypeResult StatusCorey Montez DOCLINISYNCFinal Result Performing OrganizationAddressCity/State/ZIP CodePhone Number [facility] TB * ALL IMMUNOGLOBULIN M (05/10/2024 8:44 AM EST)ComponentValueRef RangeTest MethodAnalysis TimePerformed AtPathologist SignatureTBH IMMUNOGLOBULIN M, Q177 26 - 217 mg/dLTBHComment: Performed at: ??[address] ??[id number] Emergency Dispatch Operator: Dusty Miles PhD, Phone: ??[phone] Specimen (Source)Anatomical Location / LateralityCollection Method / Volume Collection TimeReceived Time05/10/2024 8:44 AM EST05/10/2024 8:52 AM EST Narrative [facility] - 05/11/2024 7:08 AM EST Authorizing ProviderResult TypeResult StatusCorey Montez DOCLINISYNCFinal Result Performing OrganizationAddalta vista regional hospitalCity/State/ZIP CodePhone Number [facility] documented in this encounter Visit Diagnoses Not on filedocumented in this encounter Care Teams Team MemberRelationshipSpecialtyStart DateEnd Date Penelope Casas MD [address] [place] [address] PCP - GeneralFamily Medicine11/07/23documented as of this encounter
--- OUTSIDE RECORDS SUMMARY | 2025-03-09 18:01 | XMS_ITS | Clinical Summary ---
Author Organization [facility] Address [address] [place] [address] Care Team Providers Care Graphics Coordinator Name Role Phone Jonny Wilcox MD Unavailable [phone] Cosmo Elliott MD Unavailable [phone] Davida Restrepo RN Unavailable [phone] Evans Casas DO Primary Care Provider [phone] Allergies Active AllergyReactionsCriticalityNoted DateCommentsCiprofloxacinOther: See Comments,Gjrkxnm9705/19/2019 Dizziness, weakness sweating Ciprofloxacin-FluocinoloneOther: See Hkcrammh60/20/2020 Dizziness, weakness sweating LactalbuminUnknown,GI IdpcfRhe00/26/2018 Crampy and gassy LactoseGI Upset09/10/2017 Diarrhea MilkOther: See FohzezlxNej22/26/2018 Crampy and gassy Diarrhea Other reaction(s): GI Upset Crampy and gassy Milk Containing Products (Dairy)Other: See QbztxvrgPgq81/26/2018 Crampy and gassy Diarrhea Other reaction(s): GI Upset Crampy and gassy Seasonal AllergiesGI Upset,Other: See Fjjxiifh56/06/2021 Medications MedicationSigDispense QuantityRefillsLast FilledStart DateEnd DateStatus multivitamin [...] MEAL(S)Active Active Problems ProblemNoted DateDiagnosed DateAntiphospholipid antibody hzdavjmh10/29/2025 Vitamin D rtrhigtakp45/29/2025Primary hypercoagulable state08/01/2022VA, old, speech/language sicgnwy9008/01/2022Iron deficiency anemia secondary to blood loss (chronic)03/27/2022Iron deficiency anemia of hlaetwjhc77/28/2022nti-cardiolipin antibody oztxdcpn92/29/2018Migraine with aura and without status migrainosus, not vaeykclsdlc84/16/2018Antiphospholipid antibody isyfdrcr24/14/2018Fatigue 12/29/2016Pain in joint12/29/2016Estimated Date of DeliveryCommentsYes 07/28/2024 Encounters DateTypeDepartmentCare SfuzZbzazmtculv27/03/2025 11:30 AM ESTVisit (SP) Office Hematology/Oncology [address] [place] [address] [place] [address] 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 APRN.ADJUNCT TEACHER Antiphospholipid antibody positive (Primary Dx); Iron deficiency anemia secondary to blood loss (chronic); Vitamin D deficiency; Primary hypercoagulable state (HCC); CVA, old, speech/language deficit; Gestational diabetes mellitus (GDM) in third trimester, gestational diabetes method of control unspecified (HCC); History of hemorrhage; Anemia complicating , third trimester (HCC)03/02/20251759Phzkvo11/02/2025 Telephone Hematology/Oncology [address] [place] [address] [place] [address] Rachael Johnson RN Zqoozzk2101/26/2025Telephone Hematology/Oncology [address] [place] [address] [place] [address] Rachael Johnson RN 12/23/2024 11:30 AM EDTVisit (SP) Office Hematology/Oncology [address] [place] [address] [place] [address] 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 APRN.ADJUNCT TEACHER Antiphospholipid antibody positive (Primary Dx); Iron deficiency [...] drink = 0.6 oz pure alcohol)PHQ-2AnswerDate RecordedPHQ-2 vgyra6684Area Deprivation Index AnswerDate RecordedNational Score (1-100), lower number is lower risk58 09/28/2022State Score (1-10), lower number is lower cngc5033Data from: https://www.neighborhoodatlas.medicine.[facility].edu/. Last address used for [address]Estimated Date of DeliveryCommentsYes 07/28/2024Sex and Gender InformationValueDate RecordedSex Assigned at BirthNot on fileLegal PexQplqrd66/29/2018 10:06 AM ESTGender IdentityNot on fileSexual OrientationNot on fileOccupationIndustryJob Start DateJob End Datestay at home momNot on fileNot on fileNot on file Last Filed Vital Signs Vital SignReadingTime TakenCommentsBlood Yywgjkpk798/7911 11:56 AM EST Shobp884203/02/2025 11:56 AM SZSLwrdfnuditn19.2 ??C (97.2 ??F)03/02/2025 11:56 AM ESTRespiratory Xjkl588605/02/2024 11:56 AM ESTOxygen Csxywlpnyh73%03/02/2025 11:56 AM ESTInhaled Oxygen Concentration--Rbqlyg67.2 kg (214 lb 4.6 oz)03/02/2025 11:56 AM SZEUrywwy664.7 cm (5' 6.02 )12/23/2024 11:34 AM EDTBody Mass Index34.56 12/23/2024 11:34 AM EDT Plan of Treatment DateTypeDepartmentCare Team (Latest Contact Info)Akjrapatezp27/01/2025 8:00 AM ESTOffice Visit [facility] [address] [place] [address] [place] [address] Return in 4 weeks lab and possible iron03/30/2025 8:20 AM ESTVisit (SP) Office Hematology/Oncology [address] [place] [address] [place] [address] Salvador Dos Santos MD [address] [place] [address] [place] [address] Return in 4 weeks lab and possible iron03/30/2025 8:30 AM ESTInfselect [facility]Oncology [address] [place] [address] [place] [address] Return in 4 weeks lab and possible ironHealth MaintenanceDue DateLast Done CommentsAnxiety Cmodsdqnw09/24/2004Depression Rvoeueakk33/24/2004HIV Screening 10/22/2003Hepatitis C Rqebtjifs39/24/2004Hepatitis B Vaccine (1 of 3 - 19+ 3- dose series)2004HPV Vaccine (1 - 3-dose SCDM series)2012Cervical Cancer Asvqzeafh73/10/2017DTaP,Tdap,Td Vaccine (2 - Td or Tdap) Covid-19 Vaccine ( - season)2024Influenza Vaccine (#1) (Patient/Parent/Guardian Counseled and Declines)RSV Vaccine (1 - 1-dose 75+ series)2060 Procedures Procedure NamePriorityDate/TimeAssociated DiagnosisCommentsCOMPREHENSIVE METABOLIC NMTJHKzzatxr92/03/2025 11:40 AM EST 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) Vitamin D deficiency Primary hypercoagulable state (HCC) CBC + VCFOOxjxugw80/03/2025 11:40 AM EST 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) Vitamin D deficiency Primary hypercoagulable state (HCC) VITAMIN D 25 MEZDJHWMzujmqz97/03/2025 11:40 AM EST 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) Vitamin D deficiency VITAMIN B12 DRYFJMgjazkr31/26/2025 11:28 AM EDT Primary hypercoagulable state (HCC) CVA, old, speech/language deficit Cerebral hyponatremia Personal history of TIA (transient ischemic attack) IRON + JDJSFyejtoq09/26/2025 11:28 AM EDT Primary hypercoagulable state (HCC) CVA, old, speech/language deficit Cerebral hyponatremia Personal history of TIA (transient ischemic attack) FERRITIN LIHKvkezbd48/26/2025 11:28 AM EDT Primary hypercoagulable state (HCC) CVA, old, speech/language deficit Cerebral hyponatremia Personal history of TIA (transient ischemic attack) COMPREHENSIVE METABOLIC LUXJOWfkyeqj05/26/2025 11:28 AM EDT Primary hypercoagulable state (HCC) CVA, old, speech/language deficit Cerebral hyponatremia Personal history of TIA (transient ischemic attack) CBC + JJNEOpfwmji14/26/2025 11:28 AM EDT Primary hypercoagulable state (HCC) CVA, old, speech/language deficit Cerebral hyponatremia Personal history of TIA (transient ischemic attack) from Last 3 Months Results * VITAMIN D 25 HYDROXY (03/02/2025 11:40 AM EST)ComponentValueRef RangeTest MethodAnalysis TimePerformed AtPathologist SignatureVitamin D 25 Qamwemv55.6 31.0 - 80.0 ng/mL03/02/2025 9:47 PM ESTFULT[facility] MAIN LABSpecimen (Source)Anatomical Location / LateralityCollection Method / VolumeCollection TimeReceived TimeBloodBLOOD SPECIMEN / UnknownVenipuncture / Xlwjviu6403/02/2025 11:40 AM EST03/02/2025 11:41 AM EST Narrative Authorizing ProviderResult TypeResult StatusHolly Arsh OCHOACNPLABORATORY Final ResultPerforming OrganizationAddressCity/State/ZIP CodePhone Number [facility] [address] * (ABNORMAL) COMPREHENSIVE METABOLIC PANEL (03/02/2025 11:40 AM EST) Only the most recent of2 resultswithin the time period is included. ComponentValueRef RangeTest MethodAnalysis TimePerformed AtPathologist Signature Protein, Total7.26.3 - 8.0 g/dL03/02/2025 2:01 PM ESTNOR[facility] LABAlbumin4.13.9 - 4.9 g/dL03/02/2025 2:01 PM ESTNOR[facility]COAST [facility] LABCalcium, Total10.3(H)8.5 - 10.2 mg/dL03/02/2025 2:01 PM EST [facility] LABBilirubin, Total0.20.2 - 1.3 mg/dL 03/02/2025 2:01 PM ESTNOR[facility]COAST [facility] LABAlkaline Phosphatase 6434 - 123 U/L105/02/2024 2:01 PM ESTNOR[facility]CT[facility] HOXYZK01 (L)13 - 35 U/L105/02/2024 2:01 PM ESTNOR[facility]CTHREE [facility] GAWTBU362 - 38 U/L105/02/2024 2:[address] [facility] ANANeikynd74(L) 74 - 99 mg/dL03/02/2025 2:[address] [facility] LABComment: The [place] Diabetes Association (ADA) provides guidance for cutoff [...] Standards of Medical Care in Diabetes 2016, [place] Diabetes Association. Diabetes Care. 2016.39(Suppl 1). BUN97 - 21 mg/dL03/02/2025 2:[address] [facility] LAB Creatinine0.54(L)0.58 - 0.96 mg/dL03/02/2025 2:[address] [facility] NMMNzbtbk785(L)136 - 144 mmol/L105/02/2024 2:[address] [facility] LABPotassium3.93.7 - 5.1 mmol/L105/02/2024 2:01 PM [facility] VFYRdljktzs57(L)98 - 107 mmol/L105/02/2024 2:[address] [facility] TSVDU201(L)22 - 30 mmol/L105/02/2024 2:[address] [facility] LABAnion Afl579 - 15 mmol/L105/02/2024 2:[address] [facility] LABEstimated Glomerular Filtration Rxbo821>=60 mL/min/1.73m 03/02/2025 2:[address] [facility] LABComment:Estimated Glomerular Filtration Rate (eGFR) is [...] VolumeCollection TimeReceived TimeBloodBLOOD SPECIMEN / UnknownVenipuncture / Getltyi0703/02/2025 11:40 AM EST03/02/2025 11:41 AM EST Narrative Authorizing ProviderResult TypeResult StatusHolly Arsh HATHAWAYN.CNPLABORATORY Final ResultPerforming OrganizationAddressCity/State/ZIP CodePhone Number [facility] [address] [place] [phone] * (ABNORMAL) COMPLETE BLOOD COUNT AND DIFFERENTIAL (03/02/2025 11:40 AM EST) Only the most recent of2 resultswithin the time period is included. ComponentValueRef RangeTest MethodAnalysis TimePerformed AtPathologist Signature WBC8.643.70 - 11.00 k/uL03/02/2025 11:50 AM ESTNORTMUN[facility] LABRBC3.71(L)3.90 - 5.20 m/uL03/02/2025 11:50 AM [facility] OSHFxaowjblcy13.611.5 - 15.5 g/dL03/02/2025 11:50 AM [facility]RT[facility] SMXBihwjuwubl55.0(L)36.0 - 46.0 %03/02/2025 11:50 AM EST [facility] BEGONJ45.980.0 - 100.0 fL03/02/2025 11:50 AM ESTNORTMUN[facility] EXAKBH12.326.0 - 34.0 pg03/02/2025 11:50 AM ESTNORTHCTHREE [facility]IVERS [facility] KSAQGLX23.230.5 - 36.0 g/dL03/02/2025 11:50 AM [facility]RT[facility] LABRDW-CV13.311.5 - 15.0 %03/02/2025 11:[address] [facility] LABPlatelet Ihqvq659086 - 400 k/uL 03/02/2025 11:[address] [facility] LABMPV9.49.0 - 12.7 fL 03/02/2025 11:[address] [facility] LABNeutrophils %64.5% 03/02/2025 11:[address] [facility] LABAbs Neut5.571.45 - 7.50 k/uL03/02/2025 11:[address] [facility] LABLymphocytes %26.7%03/02/2025 11:[address] [facility] LABAbs Lymph2.31 1.00 - 4.00 k/uL03/02/2025 11:[address] [facility] LAB Monocytes %7.3%03/02/2025 11:[address] [facility] LABAbs Mono0.63<0.87 k/uL03/02/2025 11:[address] [facility] LAB Eosinophils %0.7%03/02/2025 11:[address] [facility] LABAbs Eosin0.06<0.46 k/uL03/02/2025 11:[address] [facility] LAB Basophils %0.3%03/02/2025 11:[address] [facility] LABAbs Baso0.03<0.11 k/uL03/02/2025 11:[address] [facility] LAB Immature Granulocytes %0.5%03/02/2025 11:[address] [facility] LABAbs Immature Gran0.04<0.10 k/uL03/02/2025 11:[address] [facility] LABNRBC0.0/100 WBC03/02/2025 11:50 AM [facility] LABAbsolute nRBC<0.01<0.01 k/uL03/02/2025 11:50 AM EST [facility] LABDiff ScdoMiso40/03/2025 11:50 AM EST [facility] LABSpecimen (Source)Anatomical Location / LateralityCollection Method / VolumeCollection TimeReceived TimeBloodBLOOD SPECIMEN / UnknownVenipuncture / Iamcylm3903/02/2025 11:40 AM EST03/02/2025 11:41 AM EST Narrative Authorizing ProviderResult TypeResult Status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 APRN.CNPLABORATORY Final ResultPerforming OrganizationAddressCity/State/ZIP CodePhone Number [facility] [address] [place] [address] * VITAMIN B12 (12/23/2024 11:28 AM EDT)ComponentValueRef RangeTest Method Analysis TimePerformed AtPathologist SignatureVitamin [id number] - 1,245 pg/mL 12/23/2024 7:00 PM EDTCNORWALK [facility] LABSpecimen (Source) Anatomical Location / LateralityCollection Method / VolumeCollection Time Received TimeBloodBLOOD SPECIMEN / UnknownVenipuncture / Orbqojs8812/23/2024 11:28 AM EDT12/23/2024 11:28 AM EDT Narrative Authorizing ProviderResult TypeResult Status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 APRN.CNPLABORATORY Final ResultPerforming OrganizationAddressCity/State/ZIP CodePhone Number [facility] [address] [address], * (ABNORMAL) IRON AND TIBC (12/23/2024 11:28 AM EDT)ComponentValueRef RangeTest MethodAnalysis TimePerformed AtPathologist SqxfhgjprTajr7967 - 186 ug/dL 12/23/2024 6:45 PM EDTCNORWALK [facility] KQGRWFU754(H)232 - 386 ug/dL12/23/2024 6:45 PM EDTCNORWALK [facility] LABTransferrin Drtmuprpsk28.315.0 - 57.0 %12/23/2024 6:45 PM EDTCNORWALK [facility] LABSpecimen (Source)Anatomical Location / LateralityCollection Method / Volume Collection TimeReceived TimeBloodBLOOD SPECIMEN / UnknownVenipuncture / Yvayiic8712/23/2024 11:28 AM EDT12/23/2024 11:28 AM EDT Narrative Authorizing ProviderResult TypeResult Status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 APRN.CNPLABORATORY Final ResultPerforming OrganizationAddressCity/State/ZIP CodePhone Number [facility] [address] [place] [address], * FERRITIN (12/23/2024 11:28 AM EDT)ComponentValueRef RangeTest MethodAnalysis TimePerformed AtPathologist WcfuopekbNofucbdp75.514.7 - 205.1 ng/mL12/23/2024 7:00 PM EDTCNORWALK [facility] LABSpecimen (Source)Anatomical Location / LateralityCollection Method / VolumeCollection TimeReceived Time BloodBLOOD SPECIMEN / UnknownVenipuncture / Yiczyyz6012/23/2024 11:28 AM EDT 12/23/2024 11:28 AM EDT Narrative Authorizing ProviderResult TypeResult Chester Caban APRN.CNPLABORATORY Final ResultPerforming OrganizationAddressCity/State/ZIP CodePhone Number [facility] [address] [place] [address], from Last 3 Months Insurance Care Teams Team MemberRelationshipSpecialtyStart DateEnd Date Evans Casas DO [address] [place] [address] PCP - GeneralFamily Vmpggwpm80/3/22 Jonny Wilcox MD [address] [place] [address] Primary Staff PhysicianCardiology07/16/18 [place] [address] [place] [address] PhysicianHematology/Oncology09/14/21 Davida Restrepo, MARSHA [address] [place] [address] Specialty Care CoordinatorHematology/Oncology09/14/21
--- OUTSIDE RECORDS SUMMARY | 2025-03-09 18:01 | XMS_ITS ---
Author Organization [facility] Address [address] [place] [address] Care Team Providers Care Independent Jeweler Name Role Phone Evans Casas MD Primary Care Provider [phone] [facility] ([facility]) Status:Closed (Closed) Start date:12/03/2024 Enrollment date:12/08/2024 Enrollment reason:Identified by Health Plan End date:03/03/2025 Close reason:No longer wishes to participate in care management Continued Care and Services Coordination
--- OUTSIDE RECORDS SUMMARY | 2025-03-09 18:01 | XMS_ITS | Encounter Summary ---
Author Organization [facility] Address [address] [place] [address] Care Team Providers Care Domestic Housekeeper Name Role Phone Evans Casas MD Primary Care Provider [phone] Encounter Details DateTypeDepartmentCare Team (Latest Contact Info)Kavboiyxukt29/04/2025Patient Outreach [facility] POPULATION [facility] [address] [place] [address] Petra Whitmore LPN [address] [place] [address] Social History Tobacco UseTypesPacks/DayYears UsedDateSmoking Tobacco: NeverSmokeless Tobacco: NeverAlcohol UseStandard Drinks/WeekCommentsNever0 (1 standard drink = 0.6 oz pure alcohol)PHQ-2AnswerDate RecordedPatient Health Questionnaire-2 Score0 03/03/2025Estimated Date of OlmrxdhgXxvotbpkWak51/05/2026ased on last menstrual period of 07/28/2024Sex and Gender InformationValueDate RecordedSex Assigned at BirthNot on fileLegal IgcNpomsu40/15/2023 11:19 PM EDTGender IdentityNot on fileSexual OrientationNot on filedocumented as of this encounter Functional Status * Over the past 2 weeks, how often have you been bothered by any of the following problems?QuestionAnswerDate of AssessmentAuthorLittle interest or pleasure in doing thingsNot at all03/03/2025 1:52 PM Petra Tabares LPN Feeling down, depressed, or hopelessNot at all03/03/2025 1:52 PM Petra Tabares LPNPatient Health Questionnaire-2 Wyvwh56605/03/2024 1:52 PM Petra Tabares LPN documented as [...] Plan of Treatment DateTypeDepartmentCare Team (Latest Contact Info)Dyguwenumei60/11/2025 9:50 AM ESTRoutine [facility] [address] [place] [phone] Wilton Herrmann DO [address] [place] [address] documented as of this encounter Visit Diagnoses Not on filedocumented in this encounter Care Teams Team MemberRelationshipSpecialtyStart DateEnd Date Evans Casas MD [address] [place] [address] PCP - GeneralFamily Medicine11/07/23documented as of this encounter
--- OUTSIDE RECORDS SUMMARY | 2025-03-09 18:01 | XMS_ITS | Encounter Summary ---
Author Organization [facility] tem Address [facility] [address] [place] [address] Care Team Providers Care Manager Clinic Name Role Phone Evans Casas DO Primary Care Provider [phone] Encounter Details DateTypeDepartmentCare Team (Latest Contact Info)Ldxjjowcbvb43/07/2025Travel Social History Tobacco UseTypesPacks/DayYears UsedDateSmoking Tobacco: NeverSmokeless Tobacco: NeverAlcohol UseStandard Drinks/WeekCommentsNot Currently0 (1 standard drink = 0.6 oz pure alcohol)ChildcareAnswerDate UkjtfhwcMritkkstkAusewxg44/31/2019 EmploymentAnswerDate NpopvewaNilxfsvebxQibfnby52/31/2019Hunger ScreeningAnswer Date RecordedWithin the past 12 months we worried whether our food would run out before we got money to buy more.Never True01/01/2025Within the past 12 months the food we bought just didn't last and we didn't have money to get more.Never True01/01/2025Purpose - LifeAnswerDate RecordedPurpose and direction in life Thpytjd95/11/2021Estimated Date of NuvdvkyrXebuefeyPol29/05/2026Based on last menstrual period of 07/28/2024Sex and Gender InformationValueDate Recorded Sex Assigned at BirthNot on fileLegal IfhDgzcqf71/31/2019 12:25 PM EDTGender IdentityNot on fileSexual OrientationNot on filedocumented as of this encounter Plan of Treatment DateTypeDepartmentCare Team (Latest Contact Info)Tegpnmiczwz57/12/2025 9:45 AM ESTTelemedicine Maternal- Medicine at [facility] [address] [facility] [place] [place] [address] Sana Palma MD [address] [place] [address] Star Waggoner MD [address] [facility], [address] [place] [address] 03/17/2025 8:30 AM ESTTelemedicine [facility], A Department of [address] [address] Sam Callahan MD [facility] [address] [place] [address] documented as of this encounter Visit Diagnoses Not on filedocumented in this encounter Care Teams Team MemberRelationshipSpecialtyStart DateEnd Date Evans Casas DO PCP - GeneralFamily Medicine07/07/19documented as of this encounter
--- OUTSIDE RECORDS SUMMARY | 2025-03-09 18:05 | XMS_ITS | CCD ---
Author Organization [facility] Care Team Providers Care Photoengraving Sketch Maker Name Role Phone CROW MONGE R Unavailable Unavailable BIBI CHRISTY Unavailable Unavailable ERIKA LONDON Attending Unavailab ERIKA Haddad Referring Unavailab Haseeb Chavez Attending Unavailable Crow Monge Referring Unavailable Humaira Gaviria MD Primary Care Provider Jonny Wilcox MD Unavailable Penelope CASAS Primary Care Physician Cheri Norwood Unavailable Unavailable Cosmo Elliott MD Unavailable Lauro LARSON, Davida Unavailable [phone] Penelope Casas Primary Care Provider PENELOPE CASAS Primary Care Unavailable FALGUNI LOPEZ Referring Unavailable Humaira Gaviria MD Primary Care Provider Jonny Wilcox MD P Unavailable Cosmo Elliott MD R Unavailable Lauro RN, Davida Unavailable Penelope Casas DO Primary Care Provider Jonny Wilcox MD P Unavailable Cosmo Elliott MD R Unavailable [phone] Lauro LARSON, Davida Unavailable Penelope Casas DO [...] Unavailable MONTEZ, DR ROQUE Primary Care Unavailable VAN NUYS, DR ANGIE Luna Consulting Unavailable MONTEZ, DR [...] Unavailable ZIEBER, DR HUMERA Palmer Consulting Unavailable MNOTEZ, DR ROQUE Primary Care Unavailable MONTEZ, DR ROQUE Consulting Unavailable MONTEZ, DR ROQUE Admitting Unavailable MONTEZ, DR ROQUE Attending Unavailable MONTEZ, DR ROQUE Admitting Unavailable MONTEZ, DR ROQUE Consulting Unavailable MONTEZ, DR ROQUE Primary Care Unavailable MONTEZ, DR ROQUE Attending Unavailable MOTNEZ, DR ROQUE Primary Care Unavailable [...] DR ROQUE Consulting Unavailable MONTEZ, DR ROUQE Primary Care Unavailable MONTEZ, DR ROQUE Attending Unavailable MONTEZ, DR ROQUE Admitting Unavailable MONTEZ, DR ROQUE Consulting Unavailable MONTEZ, DR ROQUE Primary Care Unavailable MONTEZ, DR ROQUE Attending Unavailable MONTEZ, DR ROQUE Admitting Unavailable MONTEZ, DR ROQUE Consulting Unavailable MONTEZ, DR ROQUE Primary Care Unavailable MONTEZ, DR ROQUE Attending Unavailable Brenden ROSARIO, Jonny Tsai Unavailable Lauro LARSON, Davida Unavailable [phone] Penelope Casas DO Primary Care Provider [phone] Penelope CASAS Admitting Unavailable KAPBEN, Penelope Tony [...] Admitting Unavailable MONTEZ, Wilton R Attending Unavailable MONTZE, Wilton R Admitting Unavailable Penelope Casas MD Primary Care Provider [phone] Montez RESENDEZ, Wilton Attending Provider [phone] Montez, Wilton Attending Unavailable Montez, Wilton Admitting Unavailable Gudimella, Anni Attending Unavailable Gudimella, Anni Attending Unavailable KAPPenelope CONTRERAS Attending Unavailable KAPBEN, Penelope Tony Attending Unavailable MONTEZ, Wilton R Admitting Unavailable MONTEZ, Wilton R Attending Unavailable KAPBEN, Penelope Tony Admitting Unavailable KAPBEN, Penelope Tony Attending Unavailable KAPBEN, Penelope Tony Attending Unavailable KAPPenelope CONTRERAS Attending Unavailable MONTEZ, Wilton R Admitting Unavailable [...] Unavailable Penelope Casas DO Primary Care Provider [phone] MONTEZ, Wilton R Attending Unavailable MONTEZ, Wilton R Admitting Unavailable MONTEZ, Wilton R Admitting Unavailable MONTEZ, Wilton R Attending Unavailable MONTEZ, Wilton R Attending Unavailable MONTEZ, WILTON R Referring Unavailable PENELOPE CASAS Primary Care Unavailable MUKUL NOYOLA Attending Unavailable MONTEZ, WILTON R Referring Unavailable PENELOPE CASAS Primary Care Unavailable MONTEZ, WILTON R Referring Unavailable PENELOPE CASAS Primary Care Unavailable Penelope Casas MD Primary Care Provider [phone] MONTEZ, Wilton R Admitting Unavailable MONTEZ, Wilton [...] Unavailable KAPLE, PENELOPE A Primary Care Unavailable LAVOY, ROXANA Pan Attending Unavailable KAPLE, PENELOPE A Referring Unavailable [...] of OnsetReaction(s) Facility (20 sources)Ciprofloxacin; Translations: [ciprofloxacin]Drug Khnikas59-64-9162 Other: See Comments, Unknown, Numbness and tingling sensation of skin (finding), Nausea (finding), Other (See Comments), GI [facility], [facility]: (20 sources)Ciprofloxacin / fluocinolone; Translations: [CIPROFLOXACIN-FLUOCINOLONE]Drug Lijpgyn71-07-4880Tyasg: See CommentsK[facility] Hospital (20 sources)cow milk allergenic extract; Translations: [MILK]Drug Allergy 83-14-1441Zglaq: See CommentsK[facility] Hospital Work Phone: (20 sources)Lactalbumin; Translations: [LACTALBUMIN]Drug Xlhzuuz70-31-4764 Unknown, GI Upset, Other (See Comments)[facility] (20 sources)Lactose; Translations: [LACTOSE]Drug Xbhrssb07-60-5174ES Upset, GI DisturbanceK[facility]tering Memorial Hospital (20 sources)MilkDrug Lqnxtnq45-70-6143Xgpha: See Comments, Other (See Comments) [facility] (6 sources)PenicillinsDrug Esnmynt06-97-6362[facility] (20 sources)Seasonal allergy; Translations: [SEASONAL ALLERGIES]Allergy to -53-9653JJ Upset, Other: See CommentsK[facility] Hospital Work Phone: (20 sources)Milk Products; Translations: [Milk Products]Drug allergyIllness (finding)[facility] (20 sources)Ciprofloxacin / fluocinoloneDrug Wesemwn14-79-3147Vnogs (See Comments)[facility] Work Phone: (1 source)Seasonal allergyPropensity to adverse reactions to -14-2726 Other (See Comments)[facility] Work Phone: (1 source)Milk-Related CompoundsPropensity to adverse reactions to drug 99-75-4327Cxhoh (See Comments)[facility] Work Phone: (2 sources)PenicillinsDrug Yehdfjg20-93-4869YdnebneMuvsppota Clinic (1 source)CiprofloxacinDrug Efuydnx94-92-8442ZhhSum[facility] (20 sources)Lactose (non-medical use)Propensity to adverse pmutdmdds17-56-0595 [facility] (20 sources)Lactose (non-medical use)Drug Dpsadbq66-31-6377[facility] (20 sources)OctacosanolDrug Epyfjxdljlj44-96-9090[facility] (20 sources)OtherAllergy to oyziygrwq11-77-4335GhxotRJZK Healthcare Work Phone: (3 sources)MILK CONTAINING PRODUCTS (DAIRY); Translations: [MILK CONTAINING PRODUCTS (DAIRY)]Propensity to adverse reactions to drug (disorder)05-25-2017 [facility] Medications Current Medications MedicationDrug Class(es)DatesSig (Normalized)Sig (Original)acetaminophen 300 mg / codeine phosphate 30 mg oral tablet (1 source)Opioid AgonistStart: 62-67-0283lboihsttbnyle-codeine (TYLENOL #3) 300- 30 MG per tabletAlbuterol (Eqv-ProAir HFA) 90 mcg/inh inhalation aerosol (6 sources)Start: 05-44-4211yhxy 2 puff(s) by inhalation every six hours Albuterol (Eqv-ProAir HFA) 90 mcg/inh inhalation aerosol 2 puff(s), Inhalation, q6hr, 1 EA, Refill(s) 5, [facility], 168, cm, 02/02/24 14:43:00 EDT, Height/Length Dosing, 101.1, kg, 02/02/24 14:43:00 EDT, Weight Dosing Start Date: 02/02/24 Status: Orderedazithromycin 250 mg oral tablet (20 sources)Macrolide AntimicrobialStart: 09-08-2024 End: 93-33-7369tdmavzhkwjrj (Zithromax Z-Jonny) 250 MG tablet Indications: 5 weeks gestation of ([facility]) As directed 6 tablet 09/08/2024 10/30/2024 Discontinued (Therapy completed)Start: 06-19-2024 End: 69-78-7028Ciuisvuna 250 mg Tab = 1 packet(s), Oral, As Directed, as directed on package labeling, X 5 day(s),# 6 tab(s), Refills(s) 1, Pharmacy: [facility], 168, cm, 06/09/24 14:03:00 EST, Height/Length Dosing, 98.4, kg, 06/19/24 16:19:00 EST, Weight Dosing Start Date: 06/19/24 Stop Date: 06/29/24 Status: OrderedStart: 04-21-2024 End: 02-25-3403vofqgczzcfck (Zithromax Z-Jonny) 250 MG tablet Indications: Upper respiratory tract infection, unspecified type As directed 6 tablet 04/21/2024 05/06/2024 Discontinuedazithromycin 250 mg Tab 5-day Dose Pack (Z-Jonny) (2 sources)Start: 02-02-2024 End: 13-42-2776utzbyssbxpuy 250 mg Tab 5-day Dose Pack (Z-Jonny) = 1 packet(s), Oral, As Directed, as directed on package labeling, X 5 day(s), # 6 tab(s), Refills(s) 0, Pharmacy: [facility], 168, cm, 02/02/24 14:43:00 EDT, Height/Length Dosing, 101.1, kg, 02/02/24 14:43:00 EDT, Weight Dosing Start Date:02/02/24 Stop Date: 02/07/24 Status: OrderedBlood Glucose Monitoring Suppl (D-Care Glucometer) w/Device kit (20 sources)Start: 10-30-2024 End: 93-85-0179Nfqtb Glucose Monitoring Suppl (D-Care Glucometer) w/Device kit Indications: Second trimester ([facility]) , 13 weeks gestation of ([facility]) , Multigravida of advanced maternal age in second trimester ([facility]) , Gestational diabetes mellitus (GDM), antepartum, gestational diabetesmethod of control unspecified ([facility]) , Elevated glucose tolerance test 1 kit Daily Use four times daily to check FSBS. In the morning prior to breakfast & 1 hour after each meal for a total rb8wvhgi daily. 1 kit 10/30/2024 10/30/2025 Activeblood-glucose meter (BLOOD GLUCOSE MONITORING) kit (20 sources)blood-glucose meter (BLOOD GLUCOSE MONITORING) kit 1 each by other route in the morning. Use to check blood sugar 4 times daily . Activeblood- glucose sensor (FREESTYLE JENIFER 3 PLUS SENSOR) device (12 sources)Start: 55-49-3997olvj 2 doses by mouth onceblood-glucose sensor (FREESTYLE JENIFER 3 PLUS SENSOR) device Indications: Gestational diabetes mellit us (GDM) in second trimester controlled on oral hypoglycemic drug Wear for 15 days and change 2 each 6 12/26/2024 Activecephalexin 500 mg oral tablet (20 sources)Cephalosporin AntibacterialStart: 08-19-2021 End: 85-66-4106epaz 1 tablet by mouth twice dailycephalexin 500 mg oral tablet 500 mg = 1 tab(s), Oral, BID, X 10 day(s), # 20 tab(s), Refills(s) 0,Pharmacy: [facility], 168, cm, 08/19/21 10:50:00 [...] suspension (2 sources)Corticosteroid, Quinolone AntimicrobialStart: 10-23-2023 End: 61-24-4780Buyqzrrr 0.3%-0.1% Susp-Otic 4 drop(s), Otic, BID for 7 day(s), 7.5 mL, Refill(s) 0, [facility]pharm[facility] #[id number], 168, cm, 10/23/23 16:55:00 EDT, Height/Length Dosing, 106.2, kg, 10/23/23 16:55:00 EDT, WeightDosing Start Date: 10/23/23 Stop Date: 10/30/23 Status: OrderedStart: 02-15-2023 End: 16-61-3393Uedjppue 0.3%-0.1% Susp-Otic 4 drop(s), Otic, BID for 7 day(s), 7.5 mL, Refill(s) 0, Only use if drainage or pain of ear shake well before using, [facility], 168, cm, 02/15/23 [...] (20 sources)Low Molecular Weight HeparinStart: 01-19-2025 End: 44-51-6293Puipiqklza Sodium (Lovenox) 40 MG/0.4ML solution prefilled syringe Indications: Anticoagulant long-term use , Antiphospholipid antibody positive , Antiphospholipid antibody syndrome ([facility]) Inject 40 mg as directed Daily for 30 doses 12 mL 3 01/19/2025 02/18/2025 ActiveStart: 01-09-2025 End: 04-41-0638uflugq 0.4 mL by subcutaneous injection onceenoxaparin (LOVENOX) 40 mg/0.4 mL syringe Indications: Antiphospholipid syndrome Inject 0.4 mL (40 mg total) under the skin Every 12 (twelve) hours. 24 mL 6 01/13/2025 ActiveStart: 05-03-2023 End: 80-16-3787erjckzqxvz (LOVENOX) 40 mg/0.4 mL Indications: Primary hypercoagulable state (HCC) , CVA, old, speech/language deficit , Cerebral hyponatremia INJECT 1 SYRINGE SUBCUTANEOUSLY EVERY 24 HOURS 90 mL 10/29/2024 ActiveStart: 04-06-2022 End: 19-48-3395nompdtraax (LOVENOX) 40 mg/0.4 mL Indications: Primary hypercoagulable state (HCC) , CVA, old, speech/language deficit , Cerebral hyponatremia INJECT THE CONTENTS OF ONE SYRINGE (0.4 ML) SUBCUTANEOUSLY EVERY 24 HOURS 90 mL 2 09/28/2022 ActiveStart: 09-06-2021 End: 46-87-0336urqlqb 0.8 mL by subcutaneous injection twice dailyenoxaparin (LOVENOX) 80 mg/0.8 mL Indications: Primary hypercoagulable state (HCC) Inject 0.8 mL subcutaneously twice daily. 48 mL 5 09/06/2021 10/06/2021 ActiveStart: 04-07-2020 End: 86-15-7267hqnpma 0.4 mL by subcutaneous injection every twenty-four hours enoxaparin (LOVENOX) 40 mg/0.4 mL Indications: Primary hypercoagulable state (HCC) , CVA, old, speech/language deficit , Cerebral hyponatremia Inject 0.4 mL subcutaneously every 24 hours. 36 mL 0 12/30/2021 03/30/2022 Active End: 28-66-2249qzddlz 40 mg by subcutaneous injection in the [...] enoxaparin (LOVENOX) 40 MG/0.4ML injection (1 source)Start: 24-18-3257hhguiiitet (LOVENOX) 40 MG/0.4ML injection Inject 0.4 mLs into the skin daily 16 mL 1 02/20/2020 Activeenoxaparin (Lovenox) 40 MG/0.4ML injection (20 sources)enoxaparin (Lovenox) 40 MG/0.4ML injection 1 (one) time each day at the same time Activefamotidine 40 mg oral tablet (20 sources)Histamine-2 Receptor AntagonistStart: 07-60-4676bpps 1 tablet by mouth once daily at bedtimePepcid 40 mg Tab 40 mg = 1 tab(s), Oral, Once a day (at bedtime), # 90 tab(s), Refills(s) 4, Pharmacy: [facility], 168, cm, 06/30/24 8:36:00 EST, Height/Length Dosing, 97.2, kg, 06/30/24 8:36:00 EST, Weight Dosing Start Date: 06/30/24 Status: Ordered Quantity: 90.0 Unit: tab(s) Repeat number: 5Start: 11-29-2023 End: 73-84-2656chgd 1 tablet by mouth once dailyfamotidine (PEPCID) 20 mg tablet Take 1 tablet by mouth once daily. To take prior to infusion 1 tablet 11/29/2023 10/28/2024 Discontinued (Discontinued by Patient)Start: 11-29-2023 End: 03-17-3202tjpxvhroql 20 mg injection (PEPCID)fluconazole 150 mg oral tablet (6 sources)Azole AntifungalStart: 79-46-5611Dxfqiasv 150 mg Tab 150 mg = 1 tab(s), Oral, q7day, # 4 tab(s), Refills(s) 1, Pharmacy: [facility], 168, cm, 06/09/24 14:03:00 EST, Height/Length Dosing, 98.4, kg, 06/19/24 16:19:00 EST, Weight Dosing Start Date: 06/19/24 Status: Ordered Quantity: 4.0 Unit: tab(s) Repeat number: 2 Indication: Candidiasis, unspecifiedfluticasone propionate 0.05 mg/actuat metered dose nasal spray (20 sources)CorticosteroidStart: 11-20-2024 End: 14-47-8945kuhl 1 spray(s) nasal route once dailyfluticasone (Flonase) 50 MCG/ACT nasal spray Indications: Sinus headache Administer 1 spray into each nostril Daily Shake gently. Before first use, prime pump. After use, clean tip and replace cap. 16 g 3 11/20/2024 11/20/2025 ActiveStart: 17-99-5274Ytwbqlr 0.05 mg/inh [place] 2 spray(s), Nasal, Daily, 16 gram, Refill(s) 11, each nostril, [facility]/pharmacy #[id number], 168, cm, 06/09/24 14:03:00 EST, Height/Length Dosing, 99.1, kg, 06/09/24 14:03:00 EST, Weight Dosing Start Date: 06/09/24 Status: Ordered Quantity: 16.0 Unit: g Repeat number: 12Start: 02-93-0189Usqgjjn 0.05 mg/inh [place] 2 spray(s), Nasal, Daily, 16 gram, Refill(s) 11, each nostril, [id number], 168, cm, 06/09/24 14:03:00 EST, Height/Length Dosing, 99.1, kg, 06/09/24 14:03:00 EST, Weight Dosing Start Date: 06/09/24 Status: OrderedStart: 87-12-2896Szliguo 0.05 mg/inh [place] 2 spray(s), Nasal, Daily, 16 gram, Refill(s) 0, each nostril Start Date: 08/03/23 Status: Orderedisopropyl alcohol 0.7 ml/ml medicated pad (20 sources)Start: 64-50-3936Dihrefd Swabs (Alcohol Prep Pad) 70 % pads Indications: Second trimester ([facility]) , 13 weeks gestation of ([facility]) , Multigravida of advanced maternal age in second trimester ([facility]) , Gestational diabetes mellitus (GDM), antepartum, gestational diabetes method of control unspecified ([facility]) , Elevated glucose tolerance test Apply 1 Pad topically Daily Use four times daily to check FSBS. 150 each 3 10/30/2024 Activelevothyroxine sodium 0.025 mg oral tablet (20 sources)l-ThyroxineStart: 87-25-9144nizxgwaivllqi 25 mcg (0.025 mg) Tab 25 mcg = 1 tab(s), Oral, Daily, Dr. Celaya, # 30 tab(s), Refills(s) 0 Start Date: 06/09/24 Status: Ordered Quantity: 30.0 Unit: tab(s) Repeat number: 1Start: 06-02-2024 End: 16-07-3602kogp 1 tablet by mouth before mealtimelevothyroxine (Synthroid) 50 MCG tablet Indications: History of thyroid disease Take 1 tablet (50 mcg) by mouth in the morning. Take before meals. 30 tablet 11 06/02/2024 06/23/2024 DiscontinuedStart: 02-25-2024 End: 28-89-1549covu 1 tablet by mouth before mealtimelevothyroxine (Synthroid) 25 MCG tablet Indications: Abnormal TSH Take 1 tablet (25 mcg) by mouth in the morning. Take before meals. 30 tablet 11 06/23/2024 06/23/2025 ActiveStart: 08-24-2021 End: 82-17-1700ocedoacptcmdw (SYNTHROID) 25 mcg tablet Take 25 mcg by mouth. 0 08/24/2021 09/26/2023 Discontinued End: 51-50-5113zyes 3 tablets by mouth once dailylevothyroxine (Synthroid) 25 MCG tablet Take 75 mcg by mouth 1 (one) time each day at the same time05/06/2024 DiscontinuedComment on above:Take 25 mcg by mouth.Lovenox 40 mg/0.4 mL Injection (20 sources)Start: 09-11-0435sdzoyr 40 mg by subcutaneous injection every twenty-four hoursLovenox 40 mg/0.4 mL Injection 40 mg, SubCutaneous, q24hr, # 7 EA, Refills(s) 0, Blood Thinner Start Date: 04/07/20 Status: Ordered Quantity: 7.0 Unit: EA Repeat number: 1Start: 26-77-2531jvtsmp 40 mg by subcutaneous injection every twenty-four hoursLovenox 40 mg/0.4 mL Injection 40 mg, SubCutaneous, q24hr, # 7 EA, Refills(s) 0, Blood Thinner Start Date: 04/07/20 Status: Lguvpxe74 hr metFORMIN hydrochloride 500 mg extended release oral tablet (20 sources)BiguanideStart: 01-19-2025 End: 13-28-6738gcqc 3 tablets by mouth every twenty-four hours at mealtime metFORMIN XR (Glucophage-XR) 500 MG 24 hr tablet Indications: Gestational diabetes mellitus (GDM), antepartum, gestational diabetes method of control unspecified ([facility]) Take 3 tablets (1,500 mg) by mouth in the evening. Take with meals Do not crush, chew, or split. 90 tablet 3 01/19/2025 ActiveStart: 34-74-3524fytFARHDS XR (GLUCOPHAGE XR) 500 mg 24 hr tablet Take 1500 mg at night. 90 tablet 4 01/01/2025 ActiveStart: 12-17-2024 End: 07-40-9181xwqDXTDEU XR (GLUCOPHAGE XR) 500 mg 24 hr tablet Take 1000 mg at night. 90 tablet 4 12/17/2024 01/01/2025 DiscontinuedStart: 05-13-2024 End: 78-71-5312gstg 2 tablets by mouth every twenty-four hours at mealtime metFORMIN XR (Glucophage-XR) 500 MG 24 hr tablet Indications: Insulin resistance Take 2 tablets (1,000 mg) by mouth in the evening. Take with meals Do not crush, chew, or split. 60 tablet 11 05/13/2024 06/02/2024 DiscontinuedStart: 11-27-2023 End: 37-67-1778dige 1 tablet by mouth once dailymetFORMIN XR (Glucophage-XR) 500 MG 24 hr tablet Indications: Insulin resistance Take 1 tablet (500mg) by mouth 1 (one) time each day at the same time 30 tablet 11 09/18/2024 01/19/2025 DiscontinuedStart: 59-13-7479OggMWORRR (Eqv-Glucophage XR) 500 mg oral tablet, extended release 1,000 mg = 2 tab(s), Oral, Daily, Refills(s) 0 Start Date: 10/20/22 Status: Ordered Repeat number: 1Start: 03-26-2022 End: 70-04-7989uchEQRTSY XR (GLUCOPHAGE XR) 500 mg 24 hr [...] tablet by mouth once daily.polyethylene glycol 3350 09681 mg powder for oral solution (20 sources)Osmotic Laxativepolyethylene glycol, PEG, 3350 (Glycolax) 17 GM/SCOOP powder Take 17 g by mouth Daily ActivePolyethylene Glycols (4 sources)polyethylene glycol 3350 (MIRALAX PO) Take by mouth. ActivePRENATAL 19 29 mg iron- 1 mg tablet,chewable (20 sources)Start: 18-41-2737GMPCBYBH 19 29 mg iron- 1 mg tablet,chewable Chew 1 tablet and swallow in the morning. 6 10/31/2018ActiveStart: 64-66-8111RYHWHUOQ 19 29 mg iron- 1 mg tablet,chewable Chew 1 tablet and swallow daily. 6 10/31/2018 ActivePrenatal Vit-Fe Fumarate-FA ( PO) (1 source)Start: 19-06-0697Chiypfqw Vit-Fe Fumarate-FA ( PO) Take 1 tablet by mouth 0 10/31/2018 Activeprogesterone 200 mg oral capsule (20 sources)Progesteronetake 1 capsule by mouth in the morningprogesterone (PROMETRIUM) 200 mg capsule Take 1 capsule (200 mg total) by mouth in the morning. ActiveProgesterone 200 MG suppository (6 sources)Start: 09-18-2024 End: 23-59-1615Fjpfggibujqj 200 MG suppository Indications: History of miscarriage Insert 200 mg into the vagina at bedtime Insert suppository vaginally every night at bedtime until 12 weeks gestation 30 suppository 3 09/18/2024 10/30/2024 Discontinued (Therapy completed)Start: 09-18-2024 End: 32-85-7877Ipwdnvalbnuq 200 MG suppository Indications: History of miscarriage Insert 200 mg into the vagina at bedtime Insert suppository vaginally every night at bedtime until 12 weeks gestation 30 suppository 3 09/18/2024 12/17/2024 ActiveStart: 09-01-2024 End: 79-59-4649Wjwfxpwcqdnb 200 MG suppository Indications: History of miscarriage Insert 200 mg into the vagina at bedtime Insert suppository vaginally every night at bedtime until 12 weeks gestation 30 suppository 2 09/01/2024 11/30/2024 Activeprogesterone vaginal suppository 200 mg (CPD) (4 sources)progesterone vaginal suppository 200 mg (CPD) Use 200 mg vaginally. Unwrap and insert as directed. Activeterconazole 4 mg/ml vaginal cream (3 sources)Azole AntifungalStart: 06-23-2024 End: 30-94-8992cwdrcpwdvyu (Terazol 7) 0.4 % vaginal cream Indications: Vaginal discharge Insert 1 applicator intothe vagina at bedtime for 7 days 45 g 06/23/2024 06/30/2024 ActiveVentolin HFA 90 mcg/inh Aerosol-Adpt (1 source)Start: 09-07-2024 End: 98-10-8269mzez 2 puff(s) by inhalation every six hours for wheezingVentolin HFA 90 mcg/inh Aerosol-Adpt 2 puff(s), Inhalation, q6hr for wheezing for 7 day(s), 8 gm, Refill(s) 0, [facility], 167, cm, 09/07/24 10:01:00 EDT, Height/Length Dosing, 96.4, kg, 09/07/24 10:01:00 EDT, Weight Dosing Start Date: 09/07/24 Stop Date: 09/14/24 Status: Ordered Quantity:8.0 Unit: g Repeat number: 1 Indication: Acute upper respiratory infection, unspecifiedVitamin D (20 sources)Start: 70-02-5187Hnhwvtg D 2,000 International_Unit, Oral, qWeek, Refills(s) 0 Start Date: 08/03/23 Status: Ordered Repeat number: 1Start: 41-98-6863Nmtrktf D 2,000 International_Unit, Oral, qWeek, Refills(s) 0 Start Date: 08/03/23 Status: Ordered Completed/Discontinued Medications MedicationDrug Class(es)DatesSig (Normalized)Sig (Original)aspirin 81 mg chewable tablet (5 sources)Platelet Aggregation Inhibitor, Nonsteroidal Anti-inflammatory Drug End: 38-38-9785xaoogdx 81 MG chewable tablet Chew 81 mg in the morning. 05/06/2024 Discontinued1 ml dexamethasone phosphate 4 mg/ml injection (1 source)CorticosteroidStart: 11-29-2023 End: 73-99-3848xhbLFMGTsuexv sodium phosphate 8 mg injection (DECADRON)3 ml insulin glargine 100 unt/ml pen injector (6 sources)Insulin AnalogStart: 12-03-2024 End: 27-58-2563bseylic glargine (LANTUS SOLOSTAR U-100 INSULIN) 100 unit/mL (3 mL) insulin pen Prime with 2 units then inject 4 units SQ into abd 15 mL 3 12/03/2024 12/17/2024 Discontinued (Allergic response)insulin isophane, human 100 unt/ml injectable suspension (10 sources)Start: 12-26-2024 End: 96-23-8928jqay 8 [IU] by mouth once dailyinsulin NPH (HumuLIN N,NovoLIN N) 100 unit/mL injection Indications: Gestational diabetes mellitus (GDM) in second trimester controlled on oral hypoglycemic drug Inj sbq in abd 8 units nightly 10 mL 6 12/26/2024 02/06/2025 Discontinued (Patient Never Started This Medication)iron sucrose 300 mg in NaCl 0.9% 250 mL (VENOFER) (3 sources)Start: 11-29-2023 End: 33-60-2306jaqr sucrose 300 mg in NaCl 0.9% 250 mL (VENOFER)Start: 11-22-2023 End: 06-21-1847gebw sucrose 300 mg in NaCl 0.9% 250 mL (VENOFER)Start: 11-15-2023 End: 58-39-2864nlyi sucrose 300 mg in NaCl 0.9% 250 mL (VENOFER)multivitamin (MULTIPLE VITAMINS) tablet (7 sources)take 1 tablet by mouth once dailymultivitamin (MULTIPLE VITAMINS) tablet Take 1 tablet by mouth once daily. 0 ActiveComment on above:Take 1 tablet by mouth once daily.ondansetron 4 mg disintegrating oral tablet (4 sources)Serotonin-3 Receptor AntagonistStart: 04-14-2024 End: 99-34-8825jgaj 1 tablet by mouth every six hours for nauseaondansetron ODT (Zofran-ODT) 4 MG disintegrating tablet Indications: Nausea and vomiting in Take 1 tablet (4 mg) by mouth every 6 (six) hours if needed for nausea or vomiting 30 tablet 2 04/14/2024 05/06/2024 DiscontinuedStart: 03-07-2024 End: 05-99-4790pomr 1 tablet by mouth every six hours as needed for nausea and vomiting and nausea and nauseaondansetron ODT (Zofran-ODT) 4 MG disintegrating tablet Indications: Nausea Take 1 tablet (4 mg) bymouth every 6 (six) hours if needed for nausea or vomiting 30 tablet 2 03/07/2024 04/06/2024 Active polysaccharide iron complex 391 mg oral capsule (20 sources)Start: 03-06-2022 End: 69-19-3232BLC FE 180 mg iron cap Problems Active Problems Problem ClassificationProblemDateDocumented DateEpisodic/ChronicAcute cerebrovascular disease (20 sources)Cerebral infarction; Translations: [Cerebral infarction, unspecified]Onset: 05-16-2019 Resolved: 543524-88-9309QfyqihzQtstskd disorders (20 sources)Anxiety; Translations: [Anxiety disorder, unspecified]Onset: 624425-93-9762HsvbxfqOkudjfn dysrhythmias (20 sources)Supraventricular tachycardia; Translations: [Supraventricular tachycardia]Onset: 183842-95-6265ZuhisbyPtolxaevorp and hemorrhagic disorders (20 sources)Antiphospholipid syndrome; Translations: [Hypercoagulability state] Onset: 267850-58-7950BfjtnkfMdaecnlovk and other anemia (20 sources)Iron 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; Translations: [Iron deficiency anemia secondary to blood loss (chronic)]Onset: 82-17-2038Vcdvsst Deficiency and other anemia (1 source)Iron deficiency anemia secondary to blood loss (chronic); Translations: [Iron deficiency anemia secondary to blood loss (chronic)]Onset: 01-81-1021GikihrnHnzrjnyfs of teeth and jaw (11 sources)Temporomandibular mxfnp-iapf-yjmvtdonetg syndrome; Translations: [Arthralgia of temporomandibular joint]Onset: 851300-27-2706Acvsnbyb Esophageal disorders (20 sources)Laryngopharyngeal reflux; Translations: [Gastro-esophageal reflux disease without esophagitis]Onset: 902536-42-0605FyvcdxbKjisjyky; including migraine (20 sources)Migraine without aura, not refractory ; Translations: [Migraine without aura, not intractable, without status migrainosus]Onset: 09-12-2017 Resolved: 055512-50-2385RgtilzyTtlxikkv; including migraine (2 sources)Sinus headache; Translations: [Sinus headache]58-06-5867QcvaenzwMjfo effects of cerebrovascular disease (20 sources)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; Translations: [Other speechand language deficits following cerebral infarction]Onset: 25-62-9584DwkntrdIurfrrlsmb disorders (1 source)Hormone replacement therapy; Translations: [HORMONE REPLACEMENT THERAPY]Onset: 67-32-3222ZkqdwpaeVlhgslfna disorders (20 sources)Irregular menstruation, unspecified; Translations: [Missed period] Onset: 10-05-7083NgirvceSkqbxytbgikph mental health disorders (20 sources)Psychogenic hyperventilation; Translations: [Other somatoform disorders]Onset: 526816-63-6109PhamovcEngfuqfb sclerosis (1 source)Multiple sclerosis; Translations: [Multiple sclerosis]Onset: 87-64-4402LhrbuamCaksiiaskhw deficiencies (20 sources)Vitamin D deficiency; Translations: [Vitamin D deficiency, unspecified]Onset: 252402-92-0056KgfdmwbNaqnd aftercare (1 source)Other nursing home (current) drug therapy; Translations: [OTH CARE HOME CURRENT DRUG THERAPY]Onset: 29-78-6163ZjrpmhxyOzcxe aftercare (1 source)intermediate project manager (current) use of oral hypoglycemic drugs; Translations: [DURAL MECHANIC USE ORAL HYPOGLYCEMIC DX]Onset: 31-34-7992QonswhktBcgbz aftercare (2 sources)H/O: miscarriage; Translations: [Encounter for other specified aftercare]83-96-1652RjrypvagMbwey circulatory disease (4 sources)History of cerebrovascular disease; Translations: [Personal history of transient ischemic attack (TIA), and cerebral infarction without residual deficits]Onset: 390386-98-8782CzithtraTlgzv circulatory disease (3 sources)Personal history of transient ischemic attack (TIA), and cerebral infarction without residual deficits; Translations: [PERS HX TIA AND CI NO RESID DEFICIT]Onset: 73-51-6470FzigkfehEgtnc circulatory disease (1 source)History of transient ischemic attack; Translations: [Personal history of transient ischemic attack (TIA), and cerebral infarction without residual deficits]42-82-1894OtptssfyUcmqh complications of ; puerperium affecting management of mother (20 sources)Anemia in mother complicating childbirth; Translations: [Anemia complicating childbirth]Onset: 489720-83-3064YoxmokzWrbbv complications of ; puerperium affecting management of mother (1 source)Other diseases of the blood and blood-forming organs and certain disorders involving the immune mechanism complicating childbirth; Translations: [OTH DZ BLD BFO IMMUN COMP CHILDBRTH]Onset: 05-29-2616SkbrkovkXlzzh complications of ; puerperium affecting management of mother (1 source)Endocrine, nutritional and metabolic diseases complicating childbirth; Translations: [ENDOCRN NUTR MET DZ COMP CHILDBIRTH]Onset: 26-51-9864Uuobdags Other complications of ; puerperium affecting management of mother (1 source)Streptococcus B carrier state complicating childbirth; Translations: [STREP B QUIROZ STATE COMP CHILDBIRTH]Onset: 82-29-0322DeezadizEvfpw complications of (20 sources)Iron deficiency anemia of ; Translations: [Anemia complicating , unspecified trimester]Onset: 28-74-3817HpabufeQfmmi complications of (1 source)Endocrine, nutritional and metabolic diseases complicating , third trimester; Translations: [ENDOCRN NUTR MET DZ COMP PG 3RD TRI]Onset: 64-04-5291RyuzayqaFszwi complications of (5 sources)Supervision of elderly multigravida, third trimester; Translations: [SUP ELDER MULTIGRAVIDA THIRD TRI]Onset: 66-08-0331WamssotrSyugv complications of (1 source)Other diseases of the blood and blood-forming organs and certain disorders involving the immune mechanism complicating , third trimester; Translations: [OTH DZ BLD BFO IMMN COMP PG 3RD TRI]Onset: 05-04-2022 EpisodicOther complications of (1 source)Maternal care for excessive growth, third trimester, not applicable or unspecified; Translations: [MAT CARE EXCSS FTL GRTH 3RD TRI UNS] Onset: 61-75-6564ZuwhyfgaKmeob complications of (20 sources)Antiphospholipid syndrome; Translations: [Other diseases of the blood and blood-forming organs and certain disorders involving the immune mechanism complicating , unspecified trimester]Onset: 07-07-2019 84-97-7405DjwcnsapUcyjn complications of (20 sources)Multigravida of advanced maternal age; Translations: [Supervision of elderly multigravida, second trimester]Onset: 483473-48-2726DgwajfmlWpixe complications of (20 sources)History of with abortive outcome; Translations: [Supervision of with other poorreproductive or obstetric history, second trimester]Onset: 231302-03-1812FjeeqntiMrksh complications of (3 sources)Hypothyroidism in ; Translations: [Endocrine, nutritional and metabolic diseases complicating , second trimester]01-02-2025 EpisodicOther ear and sense organ disorders (20 sources)Otitis externa of right ear; Translations: [Unspecified otitis externa, right ear]Onset: 91-20-1291UtddwjsVodvx ear and sense organ disorders (7 sources)Otitis ifwnvfp51-58-2522HafatyqDlvwe endocrine disorders (20 sources)Hypoglycemia; Translations: [Hypoglycemia, unspecified]Onset: 008314-48-7261QxdebkqWcivn female genital disorders (2 sources)Vaginal bleeding; Translations: [Abnormal uterine and vaginal bleeding, unspecified]98-39-5099WqzsicwPbkfq female genital disorders (4 sources)Vaginal discharge; Translations: [Other specified noninflammatory disorders of vagina]08-72-2763GrivwswxPbvhe hematologic conditions (1 source)H/O: blood disorder; Translations: [Personal history of diseases of the blood and blood-forming organs and certain disorders involving the immune mechanism]Onset: 95-11-0804FdvzsrxrDbiww lower respiratory disease (9 sources)Tipgb47-28-7237OplrwdnvDkesb nervous system disorders (1 source)Idiopathic progressive neuropathy; Translations: [Idiopathic progressive neuropathy]Onset: 37-76-6824NidwkfaOeear nervous system disorders (20 sources)Neuropathy; Translations: [Idiopathic progressive neuropathy]Onset: 373410-85-0427AkspkxnUghjk nervous system disorders (3 sources)Paresthesia; Translations: [Paresthesia of skin]Onset: 05-16-2019 EpisodicOther nervous system disorders (9 sources)Muscle qwnkit50-22-4533TosapexfZaltr nervous system disorders (6 sources)Facial dhlvqnjmuwj68-99-8666MgddpimpRdzhr nutritional; endocrine; and metabolic disorders (10 sources)Obese class II; Translations: [Body mass index (BMI) 36.0-36.9, adult]Onset: 46-20-0888WhdacobKpoyi nutritional; endocrine; and metabolic disorders (20 sources)Obesity; Translations: [Other obesity]Onset: 038664-97-4249 ChronicOther nutritional; endocrine; and metabolic disorders (20 sources)Morbid obesity; Translations: [Morbid (severe) obesity due to excess calories]Onset: 00-43-1616TcipjwtRwyvn nutritional; endocrine; and metabolic disorders (3 sources)Hypercalcemia; Translations: [Hypercalcemia]37-78-1743UemvlduPixnn nutritional; endocrine; and metabolic disorders (20 sources)Body mass index 30+ - obesity; Translations: [Body mass index (BMI) 37.0-37.9, adult]Onset: 898567-26-9372FxlpwhuNzagi nutritional; endocrine; and metabolic disorders (1 source)Obese class I; Translations: [Body mass index (BMI) 34.0-34.9, adult] Onset: 81-92-3535JoeddejMxqbj nutritional; endocrine; and metabolic disorders (1 source)H/O: Disorder; Translations: [Personal history of other endocrine, nutritional and metabolic disease]Onset: 13-30-5553RitkzwyiVspdz nutritional; endocrine; and metabolic disorders (2 sources)H/O: thyroid disorder; Translations: [Personal history of other endocrine, nutritional and metabolic disease]12-24-7713FzvjhsmbWprab screening for suspected conditions (not mental disorders or infectious disease) (12 sources)Encounter for screening for malignant neoplasm of cervix; Translations: [Encounter for screening for diabetes mellitus]Onset: 10-28-2021 EpisodicOther skin disorders (1 source)Podopompholyx; Translations: [Dyshidrosis [pompholyx]]Onset: 03-52-6355SsnohwsaMkbyj upper respiratory disease (20 sources)Allergy to -67-0210OwoyoekQwawp upper respiratory disease (1 source)Polyp of nasal sinus; Translations: [Nasal polyp, unspecified]Onset: 06-37-8448BwzydkkuGvymv upper respiratory infections (8 sources)Chronic sinusitis; Translations: [Chronic sinusitis, unspecified] Onset: 35-93-9343VhplolsCvjitjcm codes; unclassified (1 source)Sleep disorder; Translations: [Other sleep disorders]Onset: 10-20-2022 ChronicResidual codes; unclassified (20 sources)Obstructive sleep apnea syndrome; Translations: [Obstructive sleep apnea (adult) (pediatric)]Onset: 649429-41-6319TnpfwwiHzfqxars codes; unclassified (8 sources)Patient encounter status; Translations: [Other specified health status]Onset: 31-33-8677HlbeknrbPvdkpspo codes; unclassified (1 source)39 weeks gestation of ; Translations: [39 WEEKS GESTATION OF ]Onset: 85-92-2668PyvommhfLteociiz codes; unclassified (1 source)Family history of diabetes mellitus; Translations: [FAMILY HISTORY OF DIABETES MELLITUS]Onset: 98-58-5506EwcynzndIhtjjfgu codes; unclassified (1 source)Family history of stroke; Translations: [FAMILY HISTORY OF STROKE] Onset: 60-21-8555UmtrgqklBryszsfg codes; unclassified (1 source)38 weeks gestation of ; Translations: [38 WEEKS GESTATION OF ]Onset: 08-63-7907XtsifxpvQiurcdxf codes; unclassified (1 source)37 weeks gestation of ; Translations: [37 WEEKS GESTATION OF ]Onset: 63-80-0064WmqrjydhPmjvahii codes; unclassified (1 source)35 weeks gestation of ; Translations: [35 WEEKS GESTATION OF ]Onset: 96-43-6613SczxjomqKvubvaxk codes; unclassified (1 source)34 weeks gestation of ; Translations: [34 WEEKS GESTATION OF ]Onset: 98-45-5600BidkstxfDsqezmbp codes; unclassified (1 source)33 weeks gestation of ; Translations: [33 WEEKS GESTATION OF ]Onset: 36-97-2793MowjoqkzQkhczqzt codes; unclassified (1 source)32 weeks gestation of ; Translations: [32 WEEKS GESTATION OF ]Onset: 40-09-0875MjzbmpmuWkghizif codes; unclassified (1 source)31 weeks gestation of ; Translations: [31 WEEKS GESTATION OF ]Onset: 03-24-5879RbddqmpfIrhjjtdy codes; unclassified (20 sources)Sleep kvyjbkel71-93-4848PrhfkwupGyvdypyc codes; unclassified (1 source)Localized edema; Translations: [Localized edema]Onset: 11-09-2023 EpisodicResidual codes; unclassified (2 sources)Gestation period, 14 weeks; Translations: [14 weeks gestation of ]72-88-1128NcurtukjLedfbbos codes; unclassified (2 sources)Gestation period, 13 weeks; Translations: [13 weeks gestation of ]21-38-4805IvdpaeddAcindquz codes; unclassified (2 sources)Gestation period, 16 weeks; Translations: [16 weeks gestation of ]28-71-2995SvrvifqnCijcisbt codes; unclassified (2 sources)Gestation period, 19 weeks; Translations: [19 weeks gestation of ]75-93-5091GgchwezsJishoovo codes; unclassified (3 sources)Gestation period, 22 weeks; Translations: [22 weeks gestation of ]44-57-1284BpobffovHdvtcxbm codes; unclassified (3 sources)Family history of autism; Translations: [Family history of other mental and behavioral disorders]41-20-4979UgfravqhVxywuffy codes; unclassified (2 sources)Gestation period, 23 weeks; Translations: [23 weeks gestation of ]34-06-9324KyhbkbjuKjtmpagh codes; unclassified (2 sources)Gestation period, 25 weeks; Translations: [25 weeks gestation of ]63-24-1477RcwhxowuTjjmjkbe codes; unclassified (1 source)Gestation period, 27 weeks; Translations: [27 weeks gestation of ]36-22-8670MraidpozLkfbjspb codes; unclassified (1 source)22 weeks gestation of ; Translations: [22 weeks gestation of ]Onset: 08-48-7010HrhivoxgIvouklqn codes; unclassified (2 sources)Gestation period, 28 weeks; Translations: [28 weeks gestation of ]40-43-3837MjlklzpaMwmisglo codes; unclassified (1 source)Gestation period, 29 weeks; Translations: [29 weeks gestation of ]08-60-5867VncyqyenZlakgktj codes; unclassified (2 sources)Gestation period, 30 weeks; Translations: [30 weeks gestation of ]30-89-6232XoedfyauVhusqll disorders (20 sources)Hypothyroidism; Translations: [Hypothyroidism, unspecified]Onset: 232313-09-0588JpfnqbiElmlecz disorders (20 sources)Disorder of thyroid, unspecified; Translations: [Disorder of thyroid gland]Onset: 281823-09-4645IkahgicfQlqvsfygu cerebral ischemia (1 source)Transient cerebral ischemia; Translations: [Transient cerebral ischemic attack, unspecified]Onset: 905647-01-1182YyupliuRltloqpjoxsw (20 sources)History of OSZX-SlU-603-11-2022Unclassified (20 sources)Inhalation brqycr58-54-2583Qkerqwebhvqx (20 sources)Won-qhwsup91-74rbnahd32-37-3363Tmjrziccejut (1 source)CONTACT W/AND (SUSP) EXPOS COVID-19; Translations: [CONTACT W/AND (SUSP) EXPOS COVID-19]Onset: 72-17-0084Vdxkjwsiclvj (15 sources)Patient encounter hwuope02-49-1515Hejnoukoazlm (1 source)MFM consultOnset: 78-43-9333Cofsriykktal (1 source)Gestational DiabetesOnset: 69-44-6263Dscgx infection (20 sources)Viral fextcwg84-56-8352Xlvzhpfa Past or Other Problems Problem ClassificationProblemDateDocumented DateEpisodic/ChronicAbdominal pain (20 sources)Abdominal pain; Translations: [Pain in pelvis]Onset: 02-01-2019 67-49-5033SyqbrookCegam bronchitis (20 sources)Acute infective bronchitis; Translations: [Acute bronchitis due to other specified organisms]Onset: 111937-83-9151LhwwfipsPzrih posthemorrhagic anemia (20 sources)Acute posthemorrhagic anemia; Translations: [Acute posthemorrhagic anemia]Onset: 191677-90-7706UnhwbaaqFfxfhuzr reactions (20 sources)Other allergy status, other than to drugs and biological substances; Translations: [Cjtjr-ep-mlzeold vesicular eczema of hands and feet]Onset: 36-72-2546XcysxcfmFrokvrjcz infection; unspecified site (20 sources)Bacterial infectious disease; Translations: [Other bacterial infections of unspecified site]Onset: 025121-40-0506LqlvtumoHfxbxsxa of urinary tract (20 sources)History of calculus of kidney; Translations: [Personal history of urinary calculi]Onset: 673029-35-9281KpvqyrglEmpvfdp dysrhythmias (20 sources)Palpitations; Translations: [Palpitations]Onset: 08-26-2019 21-31-6710JxiaqwatUbmarwbqid associated with dizziness or vertigo (20 sources)Dizziness; Translations: [Dizziness and giddiness]Onset: 02-05-2019 04-52-3441HaokslcfIldyfvujeq and other anemia (20 sources)Anemia; Translations: [Anemia, unspecified]Onset: 71-65-4923Mckibzcu Diabetes mellitus without complication (20 sources)Prediabetes; Translations: [Prediabetes]Onset: 54-25-0931Wtygruao Diabetes or abnormal glucose tolerance complicating ; childbirth; or the puerperium (20 sources)Gestational diabetes mellitus in , unspecified control; Translations: [Gestational diabetes mellitus in childbirth, unspecified control] Onset: 72-34-8836KosjorlcElcecwwl of mouth; excluding dental (20 sources)Xerostomia; Translations: [Dry mouth, unspecified]Onset: 12-22-2022 EpisodicFluid and electrolyte disorders (20 sources)Cerebral hyponatremia; Translations: [Hypo-osmolality and hyponatremia]Onset: 65-30-2355BlnqvaurZkecvtbfqkhekwzu hemorrhage (20 sources)Hematochezia; Translations: [Blood-tinged feces]Onset: 06-12-2023 10-75-2166MtndazeyCyeapdfxuydve symptoms and ill-defined conditions (20 sources)Genitourinary symptoms; Translations: [Unspecified symptoms and signs involving the genitourinary system]Onset: 73-09-7648OrtfmpbeKbdrduixondna and screening for infectious disease (20 sources)Antibody studies abnormal; Translations: [Raised antibody titer] Onset: 237580-43-3955UznpdoffNxiklag and fatigue (20 sources)Fatigue; Translations: [Other fatigue]Onset: EpisodicMycoses (20 sources)Candidiasis of vagina Resolved: 902054-72-9975RixbijziJafuhuxekan deficiencies (20 sources)Vitamin B deficiency; Translations: [Deficiency of other specified B group vitamins]Onset: 241506-37-6994AxenrconHR-xwtqrgc trauma to perineum and vulva (20 sources)First degree perineal tear during delivery - delivered; Translations: [First degree perineal laceration during delivery]Onset: 614533-67-4658OtcllekaMulie aftercare (20 sources)Long-term current use of anticoagulant; Translations: [intermediate project manager (current) use of anticoagulants]Onset: 099115-21-7775AgltgojxRodbb aftercare (20 sources)Long-term current use of drug therapy; Translations: [intermediate project manager (current) use of 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/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]Onset: EpisodicOther circulatory disease (20 sources)History of cerebrovascular accident; Translations: [Personal history of transient ischemic attack (TIA), and cerebral infarction without residual deficits]Onset: 275196-03-7354RkvelxpsTcppqnu on above:reported by pt - related to antiphospholipid syndromeOther circulatory disease (20 sources)Elevated blood-pressure reading without diagnosis of hypertension; Translations: [Elevated blood-pressure reading, without diagnosis of hypertension]Onset: 051259-11-4917CbomtrflVasll circulatory disease (20 sources)Elevated blood pressure; Translations: [Elevated blood-pressure reading, without diagnosis of hypertension]Onset: 212472-10-9809Kphizkyk Other complications of ; puerperium affecting management of mother (20 sources) problem; Translations: [Unspecified disorders of ]Onset: 951649-95-4360GaacokkoWbzjp complications of ; puerperium affecting management of mother (1 source)Endocrine, nutritional and metabolic disease complicating , childbirth and puerperium; Translations: [Endocrine, nutritional and metabolic diseases complicating childbirth]Onset: 346161-68-2539XuxfeqydVqtbl complications of ; puerperium affecting management of mother (1 source)Complication of , childbirth and/or the puerperium; Translations: [Other diseases of the blood and blood-forming organs and certain disorders involving the immune mechanism complicating childbirth]Onset: 751828-58-0320VhhlanilLdjkk complications of ; puerperium affecting management of mother (20 sources) hemorrhage; Translations: [Other immediate hemorrhage]Onset: 360363-93-5517QdtpljvhLsuym complications of (1 source)Vomiting of ; Translations: [Vomiting of , unspecified]Onset: 588907-08-7038PnriubjjZhswi complications of (20 sources)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; Translations: [Maternal care for (suspected) chromosomal abnormality in fetus, not applicable or unspecified]Onset: 043672-07-1076IobomzzzIypdr complications of (4 sources)Other specified related conditions, third trimester; Translations: [OTH SPEC PREG RELATEDCOND 3RD TRI]Onset: 30-05-2252SmgbdwxuBnfab complications of (2 sources)Other diseases of the blood and blood-forming organs and certain disorders involving the immune mechanism complicating , unspecified trimester; Translations: [Other diseases of the blood andblood-forming organs and certain disorders involving the immune mechanism complicating , un specified trimester]Onset: 18-04-4665ZtfjwgedCsryy complications of (1 source)Supervision of elderly multigravida, second trimester; Translations: [Supervision of elderly multigravida, second trimester]Onset: 28-90-4821Tgfoquxn Other ear and sense organ disorders (20 sources)Referred otalgia of right ear; Translations: [Otalgia, right ear] Onset: 801518-53-8184PbfmpgdgXzcfo female genital disorders (20 sources)Noninflammatory disorder of the vagina; Translations: [Other specified noninflammatory disorders ofvagina]Onset: 580537-86-0690Sudmjlqb Other female genital disorders (20 sources)Disorder of female reproductive system; Translations: [Unspecified condition associated with femalegenital organs and menstrual cycle]Onset: 335800-15-5908KomiiuhuGdkzc female genital disorders (1 source)Other specified noninflammatory disorders of vagina; Translations: [OTH SPEC NONINFLAMMATORY D/O VAGINA]Onset: 41-44-3294ZpsdfbgkIqpeq female genital disorders (12 sources)Pelvic and perineal pain; Translations: [Pelvic and perineal pain] Onset: 498836-00-9164DhswbdfeAmios hematologic conditions (20 sources)H/O: anemia - iron deficient; Translations: [Personal history of diseases of the blood and blood-forming organs and certain disorders involving the immune mechanism]Onset: 122261-69-2208CenphoccYkaal infections; including parasitic (20 sources)Personal history of other infectious and parasitic diseases; Translations: [History of COVID-19]Onset: 172828-23-7279VhfolbgiUsyqe inflammatory condition of skin (1 source)Itching of skin; Translations: [Pruritus, unspecified]Onset: 704544-81-5128JxmikdsgBlxbp inflammatory condition of skin (20 sources)Pruritus, unspecified; Translations: [Unspecified pruritic disorder] Onset: 254532-53-2026TmohkwnkVleql injuries and conditions due to external causes (20 sources)Inhalation injury; Translations: [Injury, unspecified, initial encounter]Onset: 418960-90-3933VgzaplitTczqy lower respiratory disease (20 sources)Dyspnea; Translations: [Dyspnea, unspecified]Onset: 06-12-2023 30-39-0694NdjfnrivPmmbx lower respiratory disease (20 sources)H/O: asthma; Translations: [Personal history of other diseases of the respiratory system]Onset: 705492-47-8140HvikmabzOudfg lower respiratory disease (20 sources)Snoring; Translations: [Snoring]Onset: 58-36-2210UinkiteqSucxe nervous system disorders (20 sources)Muscle fasciculation; Translations: [Fasciculation]Onset: 08-19-2021 EpisodicOther nervous system disorders (20 sources)Paresthesia of lower extremity; Translations: [Paresthesia of skin] Onset: 577764-56-4667ApetjizxMvwnx nervous system disorders (20 sources)Acute postoperative pain; Translations: [Other acute postprocedural pain]Onset: 285182-55-5081YgvnifmqQesfo non-traumatic joint disorders (20 sources)Joint pain; Translations: [Pain in unspecified joint]Onset: 654968-31-4952XgfygehiPryhd nutritional; endocrine; and metabolic disorders (20 sources)H/O: hypothyroidism; Translations: [Personal history of other endocrine, nutritional and metabolic disease]Onset: 584350-31-5875Chgqsucl Other and delivery including normal (20 sources)Normal ; Translations: [Encounter for supervision of normal , unspecified, first trimester]Onset: 450220-39-7693Gexvfxjh Other skin disorders (20 sources)Kxdwd-xj-uieqynf vesicular eczema of hands and feet; Translations: [Dyshidrosis [pompholyx]]Onset: 551689-65-7564UpaozsffYbwnj upper respiratory disease (20 sources)Deviated nasal septum; Translations: [Deviated nasal septum]Onset: 18-46-3260ZortryeuCgdbx upper respiratory disease (20 sources)Polyp of nasal cavity and/or nasal sinus; Translations: [Nasal polyp, unspecified]Onset: 257637-39-3014BdcxjqhoKjlww upper respiratory infections (20 sources)Acute upper respiratory infection Resolved: 957250-91-9304QvafysrrNkxbbz media and related conditions (20 sources)Dysfunction of eustachian tube; Translations: [Disorder of right Eustachian tube]Onset: 137276-11-0151UaawwjccTaxhwnf cyst (20 sources)Cyst of ovary; Translations: [Cyst of right ovary]Onset: 02-06-2019 04-08-3096IojzwjhhMaxxiswy codes; unclassified (20 sources)Family history of female genital tract disorder Resolved: 406919-17-8226EscuupovIvbyqvfy codes; unclassified (20 sources)FH: Anemia Resolved: 446783-08-5180AiunnfseWfvrxkez codes; unclassified (20 sources)First trimester ; Translations: [Less than 8 weeks gestation of ]Onset: 193301-74-8022XpwspagtPzpkznpw codes; unclassified (20 sources)Gestation period, 32 weeks; Translations: [32 weeks gestation of ]Onset: 926220-90-1627DsqnkbojUpwwweph codes; unclassified (1 source)Gestation period, 33 weeks; Translations: [33 weeks gestation of ]Onset: 676731-14-2347AaeudsxxJtvlglye codes; unclassified (1 source)Gestation period, 34 weeks; Translations: [34 weeks gestation of ]Onset: 782264-15-1471IsawrtooOgkehtfx codes; unclassified (1 source)Gestation period, 35 weeks; Translations: [35 weeks gestation of ]Onset: 525402-21-7037OmynvywvSfmaqiqh codes; unclassified (1 source)Gestation period, 36 weeks; Translations: [36 weeks gestation of ]Onset: 469383-17-8419CqysvzleMgnssduj codes; unclassified (1 source)Gestation period, 37 weeks; Translations: [37 weeks gestation of ]Onset: 286616-66-5897ZcvfnvhfWzapwjtp codes; unclassified (1 source)Gestation period, 38 weeks; Translations: [38 weeks gestation of ]Onset: 654522-82-6408WevpqxhtMweekyru codes; unclassified (1 source)Gestation period, 39 weeks; Translations: [39 weeks gestation of ]Onset: 712494-88-3107CkpanxkoDllisbma codes; unclassified (20 sources)Other general symptoms and signs; Translations: [Other general symptoms]Onset: 224477-83-1644TvhibwjoXnfhbjvv codes; unclassified (1 source)Unspecified blood type, Rh negative; Translations: [UNSPECIFIED BLOOD TYPE RH NEGATIVE]Onset: 63-51-2676BwwgenzeGsrhhzql codes; unclassified (1 source)28 weeks gestation of ; Translations: [28 WEEKS GESTATION OF ]Onset: 49-69-5586QjbcrzkjJszklfxl codes; unclassified (20 sources)Intolerant of cold; Translations: [Other general symptoms and signs] Onset: 467728-61-4429AbzhecvjRpsczzoi codes; unclassified (20 sources)Non-smoker; Translations: [Other specified health status]Onset: 580841-26-0108GawnvwmoEuhrgixw codes; unclassified (20 sources)Swelling of salivary gland; Translations: [Localized edema]Onset: 815822-57-3564LgzjnoyrIzgvqabocwz; intervertebral disc disorders; other back problems (20 sources)Neck pain; Translations: [Cervicalgia]Onset: EpisodicSpontaneous (20 sources)Miscarriage Resolved: 157888-76-5963HmsvvjuyYoqteow (20 sources)Syncope and collapse; Translations: [Syncope and collapse]Onset: 158824-62-3310UqpmwumkNcidyzxmkemm (20 sources)PregnancyOnset: 02-20-2007 Resolved: 314487-49-9106Vxnzfgxwrtuv (20 sources)Suspected disease caused by 6185-eOpH94-67wUjQ84-31-9026Cutvgfhdtdvl (1 source)Exposure to 2018 novel coronavirus; Translations: [Contact with and (suspected) exposure to COVID19]Urinary tract infections (20 sources)Infective urethritis; Translations: [Other urethritis]Onset: 91-23-9624Sswvsqsc Results Test NameValueInterpretationReference RangeFacilityUS OB BPP W NON-STRESS on 71-27-1682[address] [address] Ultrasound Report Signed Patient: SANNA RENDON MR#: [id number] : 1985 Acct:[id number] Age/Sex: 39 / F ADM Date: 03/05/25 Loc: US Attending Dr: Wilton Herrmann D.O. Ordering Physician: Wilton Herrmann D.O. Date of Service: 03/05/25 Procedure(s): US OB BPP w non-stress Accession Number(s): [id number] cc: Wilton Herrmann D.O.; Physician,Non-Staff M.DLazara The [address] [address] Patient Name: SANNA RENDON MRN: [facility]:[id number] date: 1985 Sex: F Assigned Patient Location: [facility] Current Patient Location: Accession/Order Number: [id number] Exam Date: 03/05/2025 19:15 Report Date: 03/06/2025 08:10 At the request of: WILTON HERRMANN DO Procedure: US OB BPP w non-stress BIOPHYSICAL PROFILE: CLINICAL INFORMATION: THIRD TRIMESTER Z34.93 COMPARISON: 02/26/2025 There is a single live intrauterine gestation in cephalic presentation. The reported gestational age is 31 weeks 3 days. The heart rate measures 159 beats per minute. FINDINGS: TONE: 1 [...] Pisano M.D. 03/06/2025 8:10 AM Dictation Location: [place] [address] Electronically authenticated by: [id number] Y Date: 03/06/2025 08:10 Dictated By: Pamela Pisano M.D. Signed By: 03/06/25812 DD/ 9 TD/TT: Technical Sales Engineer:MANUELHRadiology, Radiologist, - 03/06/2025 [place] [address] Ultrasound Report Signed Patient: SANNA RENDON MR#: [id number] : 1985 Acct:[id number] Age/Sex: 39 / F ADM Date: 03/05/25 Loc: US Attending Dr: Wilton Herrmann D.O. Ordering Physician: Wilton Herrmann D.O. Date of Service: 03/05/25 Procedure(s): US OB BPP w non-stress Accession Number(s): [id number] cc: Wilton Herrmann D.O.; Physician,Non-Staff Tamia [address] [address] Patient Name: SANNA RENDON MRN: [facility]:[id number] date: 1985 Sex: F Assigned Patient Location: [facility] Current Patient Location: Accession/Order Number: [id number] Exam Date: 03/05/2025 19:15 Report Date: 03/06/2025 08:10 At the request of: WILTON HERRMANN DO Procedure: US OB BPP w non-stress BIOPHYSICAL PROFILE: CLINICAL INFORMATION: THIRD TRIMESTER Z34.93 COMPARISON: 02/26/2025 There is a single live intrauterine gestation in cephalic presentation. The reported gestational age is 31 weeks 3 days. The heart rate measures 159 beats per minute. FINDINGS: TONE: 1 [...] Pisano M.D. 03/06/2025 8:10 AM Dictation Location: [place] [address] Electronically authenticated by: [id number] Y Date: 03/06/2025 08:10 Dictated By: Pamela Pisano M.D. Signed By: 03/06/25812 DD/ 9 TD/TT: Technical Sales Engineer: SHILOH HealthcareRadiology Study observation (narrative)SHILOH HealthcareUS OB BPP W NON-STRESSOrdered By: Radiologist Radiology on 34-72-6325[facility] Work Phone: [phone]([place])D3 [facility] [place] [address]-fcjdijhizctuyc D3 [Mass/Vol]54.6 ng/rKYpmcez91.0-80.0[facility] [place] [facility] on above: Order Comment: Specimen Type: BLOOD SPECIMENOrdering Facility: [facility] Address:[address] [place], [place] [address]Performed By: #### 1989-3 ####[facility] LABCLIA [id number] [address] W Auto Differential panel (Bld)on 03-02-2025 Basophils (Bld) [#/Vol]0.03 10*3/uLNormal<0.11CPro[facility] on above:Order Comment: Specimen Type: BLOOD SPECIMENOrdering Facility: [facility] Address:[address] [place] [address] Performed By: #### 59692-1 ####[facility] LABCLIA [id number] [place], [place] [address]Yrtqyhosj/100 WBC (Bld)0.3 % NormalEast [place] Regional Hospital on above:Order Comment: Specimen Type: BLOOD SPECIMENOrdering Facility: [facility] Address:[address] [place], [place] [address]Performed By: #### 44962-7 ####[facility] LABCLIA [id number] [place] [address] Differential cell count method Nom (Bld)AutoNormalCBarnesville Hospital Comment on above:Order Comment: Specimen Type: BLOOD SPECIMENOrdering Facility: [facility] Address:[address] [place] [address] Performed By: #### 42841-3 ####[facility] LABIA [id number] [place], [place] [address]Gyyvkcukbju (Bld) [#/Vol]0.06 10*3/uLNormal<0.46[facility] [place] [facility] on above:Order Comment: Specimen Type: BLOOD SPECIMENOrdering Facility: [facility] Address:[address] [place], [place] [address]Performed By: #### 57032-9 ####[facility] LABCLIA [id number] [place], [place] [address]Tfamooksoed/100 WBC (Bld)0.7 %NormalEast [place] Regional Hospital on above:Order Comment: Specimen Type: BLOOD SPECIMENOrdering Facility: [facility] Address:[address] [place], [place] [address]Performed By: #### 50642-6 ####[facility] LABIA [id number] [place], [place] [address]Aombnhcotme distribution width (RBC) [Ratio]13.3 %Zibtqv82.5-15.0[facility] [place] [facility] on above: Order Comment: Specimen Type: BLOOD SPECIMENOrdering Facility: [facility] Address:[address] [place], [place] [address]Performed By: #### 41440- 8 ####[facility] LABIA [id number] [place], [place] [address]Sbhwonukkp (Bld) [Volume fraction]33.0 %Low36.0-46.0 [facility] [place] [facility] on above:Order Comment: Specimen Type: BLOOD SPECIMENOrdering Facility: [facility] Address:[address] [place], [place] [address]Performed By: #### 26243-6 ####[facility] LABIA [id number] [place], [place] [address]Vwcrcfuqdp (Bld) [Mass/Vol]11.6 g/kAZeqksl10.5-15.5CProMedica [facility] on above: Order Comment: Specimen Type: BLOOD SPECIMENOrdering Facility: [facility] Address:[address] [place], [place] [address]Performed By: #### 89204- 8 ####[facility] LABIA [id number] [place], [place] [address]Oxupztai granulocytes (Bld) [#/Vol]0.04 10*3/uLNormal <0.10[facility] [place] [facility] on above:Order Comment: Specimen Type: BLOOD SPECIMENOrdering Facility: [facility] Address:[address] [place], [place] [address]Performed By: #### 61492-6 ####[facility] LABCLIA [id number] [place], [place] [address]Illbsied granulocytes/100 WBC (Bld)0.5 %NormalEast [place] Regional Hospital on above: Order Comment: Specimen Type: BLOOD SPECIMENOrdering Facility: [facility] Address:[address] [place], [place] [address]Performed By: #### 01667- 8 ####[facility] LABCLIA [id number] [place], [place] [address]Htrglysgprr (Bld) [#/Vol]2.31 10*3/uLNormal1.00-4.00 [facility] [place] [facility] on above:Order Comment: Specimen Type: BLOOD SPECIMENOrdering Facility: [facility] Address:[address] [place], [place] [address]Performed By: #### 77908-0 ####[facility] LABIA [id number] [place], [place] [address]Tfhtaurlurr/100 WBC (Bld)26.7 %NormalEast [place] Regional Hospital on above:Order Comment: Specimen Type: BLOOD SPECIMENOrdering Facility: [facility] Address:[address] [place], [place] [address]Performed By: #### 00464-4 ####[facility] LABCLIA [id number] [place], [place] [address]RNA (RBC) [Entitic mass]31.3 rzZjnasg38.0-34.0[facility] [place] [facility] on above:Order Comment: Specimen Type: BLOOD SPECIMENOrdering Facility: [facility] Address:[address] [place], [place] [address]Performed By: #### 92428-1 ####[facility] LABCLIA [id number] [place], [place] [address]AQIV (RBC) [Mass/Vol]35.2 g/tGQjugsp88.5-36.0[facility] [place] [facility] on above: Order Comment: Specimen Type: BLOOD SPECIMENOrdering Facility: [facility] Address:[address] [place], [place] [address]Performed By: #### 22539- 8 ####[facility] LABCLIA [id number] [place], [place] [address]LZN (RBC) [Entitic vol]88.9 rZRscrtq56.0-100.0[facility] [place] [facility] on above:Order Comment: Specimen Type: BLOOD SPECIMENOrdering Facility: [facility] Address:[address] [place], [place] [address]Performed By: #### 54481-9 ####[facility] LABIA [id number] [place], [place] [address]Imciqzhko (Bld) [#/Vol]0.63 10*3/uLNormal<0.87[facility] [place] [facility] on above:Order Comment: Specimen Type: BLOOD SPECIMENOrdering Facility: [facility] Address:[address] [place], [place] [address]Performed By: #### 52073- 8 ####[facility] LABCLIA [id number] [place], [place] [address]Enulqrrqo/100 WBC (Bld)7.3 %NormalEast [place] Regional Hospital on above:Order Comment: Specimen Type: BLOOD SPECIMENOrdering Facility: [facility] Address:[address] [place], [place] [address]Performed By: #### 79546-7 ####[facility] LABIA [id number] [place], [place] [address]Oyjwvkuyslm (Bld) [#/Vol]5.57 10*3/uLNormal1.45-7.50[facility] [place] [facility] on above:Order Comment: Specimen Type: BLOOD SPECIMENOrdering Facility: [facility] Address:[address] [place], [place] [address]Performed By: #### 76454-7 ####[facility] LABCLIA [id number] [place], [place] [address]Vrxvcnqhxjq/100 WBC (Bld)64.5 %NormalEast [place] Regional Hospital on above:Order Comment: Specimen Type: BLOOD SPECIMENOrdering Facility: [facility] Address:[address] [place], [place] [address]Performed By: #### 13600-1 ####[facility] LABCLIA [id number] [place], [place] [address]Ehrotzbrz RBC (Bld) [#/Vol] 10*3/uLNormal<0.01[facility] [place] [facility] on above:Order Comment: Specimen Type: BLOOD SPECIMENOrdering Facility: [facility] Address:[address] [place], [place] [address]Performed By: #### 41153-0 ####[facility] LABCLIA [id number] [place], [place] [address]Ifxkgsnpj RBC/100 WBC (Bld) [Ratio]0.0 /100 WBCNormal [facility] [place] [facility] on above:Order Comment: Specimen Type: BLOOD SPECIMENOrdering Facility: [facility] Address:[address] [place], [place] [address]Performed By: #### 64031-6 ####[facility] LABCLIA [id number] [place], [place] [address]Mxrofntg mean volume (Bld) [Entitic vol]9.4 fLNormal9.0-12.7CProMedica [facility] on above:Order Comment: Specimen Type: BLOOD SPECIMENOrdering Facility: [facility] Address:[address] [place] [address] Performed By: #### 16590-1 ####[facility] LABCLIA [id number] [place], [place] [address]Jlkibcjko (Bld) [#/Vol]257 10*3/gFHxzfej638-763GhrxnxmgdEast [place] Regional Hospital on above:Order Comment: Specimen Type: BLOOD SPECIMENOrdering Facility: [facility] Address:[address] [place], [place] [address]Performed By: #### 03240-9 ####[facility] LABCLIA [id number] [place], [place] [address]WTI (Bld) [#/Vol]3.71 10*6/uLLow3.90-5.20[facility] [place] [facility] on above:Order Comment: Specimen Type: BLOOD SPECIMENOrdering Facility: [facility] Address:[address] [place], [place] [address]Performed By: #### 16617-0 ####[facility] LABIA [id number] [place], [place] [address]QBE (Bld) [#/Vol]8.64 10*3/uL Normal3.70-11.00[facility] [place] [facility] on above:Order Comment: Specimen Type: BLOOD SPECIMENOrdering Facility: [facility] Address:[address] [place], [place] [address]Performed By: #### 17411-5 ####[facility] LABIA [id number] [place], [place] [address]STYSPYws 86-73-2989NLMIKWNsnap (SP) Office ([place]) SANNA RENDON ([id number]) 1985 F Date Time Provider Department 03/02/25 11:30 AM KATHERINE NEGRETE During your visit today, we recorded the following information about you: Temperature Pulse Respiration Blood pressure 97.2 degrees 73/minute 16/minute 133/79 Weight 97.2 kg Katherine Negrete APRN.CNP 03/02/2025 8:18 PM Signed NAME: Sanna Rendon CLINIC NO.: [id number] DATE OF SERVICE: March 02, 2025 ([place]) [...] later in 2018. These were found in [place], [place]. 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 NormalSamaritan Hospitalprehensive metabolic 2000 panelon 03-02-2025 Albumin [Mass/Vol]4.1 g/dLNormal3.9-4.9CProMedica [facility] on above:Order Comment: Specimen Type: BLOOD SPECIMENOrdering Facility: [facility] Address:[address] [place], [place] [address]Performed By: #### 33736-3 ####[facility] LABCLIA [id number] [place], [place] [address]XWU [Catalytic activity/Vol]64 U/SRdqpbn27-542 [facility] [place] [facility] on above:Order Comment: Specimen Type: BLOOD SPECIMENOrdering Facility: [facility] Address:[address] [place], [place] [address]Performed By: #### 33398-0 ####[facility] LABCLIA [id number] [place], [place] [address]YGW [Catalytic activity/Vol]10 U/LNormal7-38[facility] [place] [facility] on above:Order Comment: Specimen Type: BLOOD SPECIMENOrdering Facility: [facility] Address:[address] [place], [place] [address]Performed By: #### 07067- 8 ####[facility] LABCLIA [id number] [place], [place] [address]Smdgx gap [Moles/Vol]13 mmol/LNormal8-15[facility] [place] [facility] on above:Order Comment: Specimen Type: BLOOD SPECIMENOrdering Facility: [facility] Address:[address] [place], [place] [address]Performed By: #### 11899-4 ####[facility] LABCLIA [id number] [place], [place] [address]SQA [Catalytic activity/Vol]12 U/HVxg64-79OukcidnwxEast [place] [facility] on above:Order Comment: Specimen Type: BLOOD SPECIMENOrdering Facility: [facility] Address:[address] [place], [place] [address]Performed By: #### 41351-0 ####[facility] LABCLIA [id number] [facility] [place] [address] Bilirubin [Mass/Vol]0.2 mg/dLNormal0.2-1.3CProMedica [facility] on above:Order Comment: Specimen Type: BLOOD SPECIMENOrdering Facility: [facility] Address:[address] [place], [place] [address]Performed By: #### 42997-0 ####[facility] LABCLIA [id number] [facility]ENTERSEABRAZO [place] [place], [place] [address]Gvisusu [Mass/Vol]10.3 mg/dLHigh8.5-10.2CProMedica [facility] on above:Order Comment: Specimen Type: BLOOD SPECIMENOrdering Facility: [facility] Address:[address] [place], [place] [address]Performed By: #### 60482-7 ####[facility] LABCLIA [id number] [facility]ENTERSEABRAZO [place], [place] [address]Oklnwxtz [Moles/Vol]97 mmol/BWpb92-193JqlrvrupdEast [place] [facility] Hospital on above:Order Comment: Specimen Type: BLOOD SPECIMENOrdering Facility: [facility] Address:[address] [place], [place] [address]Performed By: #### 23136- 8 ####[facility] LABCLIA [id number] [facility]ONTABRA[facility] [place], [place] [address]YI1 [Moles/Vol]21 mmol/RIah68-93GtyfwjmklEast [place] [facility] Hospital on above:Order Comment: Specimen Type: BLOOD SPECIMENOrdering Facility: [facility] Address:[address] [place], [place] [address]Performed By: #### 52997-8 ####[facility] LABCLIA [id number] [place], [place] [address]Merrckztst [Mass/Vol]0.54 mg/dL Low0.58-0.96[facility] [place] [facility] on above:Order Comment: Specimen Type: BLOOD SPECIMENOrdering Facility: [facility] Address:[address] [place], [place] [address]Performed By: #### 41650-0 ####[facility] LABIA [id number] [place] [address] eGFRcr SerPlBld CKD-EPI 3891796 mL/min/1.73m???Normal>=60[facility] [place] [facility] on above:Order Comment: Specimen Type: BLOOD SPECIMENOrdering Facility: [facility] Address:[address] [place], [place] [address]Result Comment: Estimated Glomerular Filtration Rate (eGFR) is [...] accurately reflect actual GFR. Performed By: #### 16353-0 ####[facility] LABIA [id number] [place], [place] [address]Pcpocsp [Mass/Vol]71 mg/dLLow 74-99[facility] [place] [facility] on above:Order Comment: Specimen Type: BLOOD SPECIMENOrdering Facility: [facility] Address:[address] [place], [place] [address]Result Comment: The [place] Diabetes Association (ADA) provides guidance for cutoff [...] Standards of Medical Care in Diabetes 2016, [place] Diabetes Association. Diabetes Care. 2016.39(Suppl 1).Performed By: #### 46969-9 ####[facility] LABCLIA [id number] [place], [place] [address]Oloyigppb [Moles/Vol]3.9 mmol/LNormal3.7-5.1CProMedica [facility] Hospital on above:Order Comment: Specimen Type: BLOOD SPECIMENOrdering Facility: [facility] Address:[address] [place], [place] [address]Performed By: #### 01358-1 ####[facility] LABIA [id number] [place], [place] [address]Wtzqhsj [Mass/Vol]7.2 g/dLNormal6.3-8.0[facility] [place] [facility] on above:Order Comment: Specimen Type: BLOOD SPECIMENOrdering Facility: [facility] Address:[address] [place], [place] [address]Performed By: #### 88580- 8 ####[facility] LABCLIA [id number] [place], [place] [address]Qrvprg [Moles/Vol]131 mmol/AGvs197-652IpxorsucqEast [place] Regional Hospital on above:Order Comment: Specimen Type: BLOOD SPECIMENOrdering Facility: [facility] Address:[address] [place], [place] [address]Performed By: #### 10965-7 ####[facility] LABCLIA [id number] [place], [place] [address]Udur nitrogen [Mass/Vol]9 mg/dL Normal7-21[facility] [place] [facility] on above:Order Comment: Specimen Type: BLOOD SPECIMENOrdering Facility: [facility] Address:[address] [place], [place] [address]Performed By: #### 14589-5 ####[facility] LABCLIA [id number] [place] [address] US OB BPP W NON-STRESSon 04-06-15[place] [address] Ultrasound Report Signed Patient: SANNA RENDON MR#: [id number] : 1985 Acct:[id number] Age/Sex: 39 / F ADM Date: 02/26/25 Loc: US Attending Dr: Wilton Herrmann D.O. Ordering Physician: Wilton Herrmann D.O. Date of Service: 02/26/25 Procedure(s): US OB BPP w non-stress Accession Number(s): [id number] cc: Wilton Herrmann D.O.; Physician,Non-Staff Tamia The [place] [id number] Patient Name: SANNA RENDON MRN: [facility]:[id number] date: 1985 Sex: F Assigned Patient Location: Current Patient Location: Accession/Order Number: [id number] Exam Date: 02/26/2025 19:42 Report Date: 02/27/2025 [...] Pisano M.D. 02/27/2025 10:53 AM Dictation Location: [place] [address] Electronically authenticated by: [id number] Y Date: 02/27/2025 10:53 Dictated By: Pamela Pisano M.D. Signed By: 02/27/256 DD/ 52 TD/TT: Technical Sales Engineer:ELVERadiologcarmen, Radiologist, - 02/27/2025 [place] [address] Ultrasound Report Signed Patient: SANNA RENDON MR#: [id number] : 1985 Acct:[id number] Age/Sex: 39 / F ADM Date: 02/26/25 Loc: US Attending Dr: Wilton Herrmann D.O. Ordering Physician: Wilton Herrmann D.O. Date of Service: 02/26/25 Procedure(s): US OB BPP w non-stress Accession Number(s): [id number] cc: Wilton Herrmann D.O.; Physician,Non-Staff Tamia The [place] [address] Patient Name: SANNA RENDON MRN: [facility]:[id number] date: 1985 Sex: F Assigned Patient Location: Current Patient Location: Accession/Order Number: [id number] Exam Date: 02/26/2025 19:42 Report Date: 02/27/2025 [...] Pisano M.D. 02/27/2025 10:53 AM Dictation Location: [place] [address] Electronically authenticated by: [id number] Y Date: 02/27/2025 10:53 Dictated By: Pamela Pisano M.D. Signed By: 02/27/25 1056 DD/ 1053 TD/TT: Technical Sales Engineer: [facility] HealthcareRadiology Study observation (narrative)NOM HealthcareUS OB BPP W NON-STRESSOrdered By: Radiologist Radiology on 60-51-0254RO[employer] Work Phone: Urinalysis macro (dipstick) panel (U)on [...] HealthcareNo Panel InformationOrdered By: Radiologist Radiology on 14-42-3993XEBP [employer] Work Phone: No Panel Informationon 79-52-6223Obswvpdhk Study observation (narrative)NOMS HealthcareUS OB BPP W NON-STRESSon 02-20-[address] [address] Ultrasound Report Signed Patient: SANNA RENDON MR#: [id number] : 1985 Acct:[id number] Age/Sex: 39 / F ADM Date: 02/19/25 Loc: US Attending Dr: Wilton Herrmann D.O. Ordering Physician: Wilton Herrmann D.O. Date of Service: 02/19/25 Procedure(s): US OB BPP w non-stress Accession Number(s): [id number] cc: Wilton Herrmann D.O.; Physician,Non-Staff Tamia The [address] [address] Patient Name: SANNA RENDON MRN: [id number] date: 1985 Sex: F Assigned Patient Location: LAB Current Patient Location: Accession/Order Number: [id number] Exam Date: 02/19/2025 19:47 Report Date: 02/20/2025 [...] Pisano M.D. 02/20/2025 8:37 AM Dictation Location: [place] [address] Electronically authenticated by: [id number] Y Date: 02/20/2025 08:37 Dictated By: Pamela Pisano M.D. Signed By: 02/20/2540 DD/ 6 TD/TT: Technical Sales Engineer:TBHRadiology, Radiologist, - 02/20/2025 [place] [address] Ultrasound Report Signed Patient: SANNA RENDON MR#: [id number] : 1985 Acct:[id number] Age/Sex: 39 / F ADM Date: 02/19/25 Loc: US Attending Dr: Wilton Herrmann D.O. Ordering Physician: Wilton Herrmann D.O. Date of Service: 02/19/25 Procedure(s): US OB BPP w non-stress Accession Number(s): [id number] cc: Wilton Herrmann D.O.; Physician,Non-Staff Tamia The [address] [address] Patient Name: SANNA RENDON MRN: [facility]:[id number] date: 1985 Sex: F Assigned Patient Location: LAB Current Patient Location: Accession/Order Number: [id number] Exam Date: 02/19/2025 19:47 Report Date: 02/20/2025 08:37 At the request of: WILTON MONTEZ DO Procedure: US OB BPP w non-stress [...] Pisano M.D. 02/20/2025 8:37 AM Dictation Location: [place] [address] Electronically authenticated by: [id number] Y Date: 02/20/2025 08:37 Dictated By: Pamela Pisano M.D. Signed By: 02/20/2540 DD/ 6 TD/TT: Technical Sales Engineer: SHILOH [place] [id number] [address] Ultrasound Report Signed Patient: SANNA RENDON MR#: [id number] : 1985 Acct:[id number] Age/Sex: 39 / F ADM Date: 02/19/25 Loc: US Attending Dr: Wilton Herrmann D.O. Ordering Physician: Wilton Herrmann D.O. Date of Service: 02/19/25 Procedure(s): US OB growth Accession Number(s): [id number] cc: Wilton Herrmann D.O.; Physician,Non-Staff M.DLazara [place] [id number] Patient Name: SANNA RENDON MRN: [id number] date: 1985 Sex: F Assigned Patient Location: LAB Current Patient Location: Accession/Order Number: [id number] Exam Date: 02/19/2025 19:47 Report Date: 02/20/2025 [...] Pisano M.D. 02/20/2025 8:37 AM Dictation Location: [place] [address] Electronically authenticated by: [id number] Y Date: 02/20/2025 08:37 Dictated By: Pamela Pisano M.D. Signed By: 02/20/2540 DD/ 6 TD/TT: Technical Sales Engineer:TBHRadiology, Radiologist, - 02/20/2025 [place] [address] Ultrasound Report Signed Patient: SANNA RENDON MR#: [id number] : 1985 Acct:[id number] Age/Sex: 39 / F ADM Date: 02/19/25 Loc: US Attending Dr: Wilton Herrmann D.O. Ordering Physician: Wilton Herrmann D.O. Date of Service: 02/19/25 Procedure(s): US OB growth Accession Number(s): [id number] cc: Wilton Herrmann D.O.; Physician,Non-Staff Tamia The [address] [address] Patient Name: SANNA RENDON MRN: [facility]:[id number] date: 1985 Sex: F Assigned Patient Location: LAB Current Patient Location: Accession/Order Number: [id number] Exam Date: 02/19/2025 19:47 Report Date: 02/20/2025 [...] Pisano M.D. 02/20/2025 8:37 AM Dictation Location: [place] [address] Electronically authenticated by: [id number] Y Date: 02/20/2025 08:37 Dictated By: Pamela Pisano M.D. Signed By: 02/20/25 0840 DD/ 0837 TD/TT: Technical Sales Engineer: SHILOH HealthcareUrinalysis macro (dipstick) panel (U)on 49-05-4605Qqkouzyft, UA NegativeNegative - 4(70) +++ mg/dLNOMS HealthcareBlood, UANegativeNegative - 50 Max/mcLNOMS HealthcareClarity, UAClearNOMS HealthcareColor, UAYellowNOMS HealthcareGlucose, UANegativeNegative - 2000(110) ++++ mg/dLNOMS Healthcare Interpretation and review of laboratory resultsAbnormalNOMS HealthcareKetones, UANegativeNegative - 160(16) ++++ mg/dLNOMS HealthcareLeukocytes, UATrace Negative - 500+++ John/mcLNOFL HealthcareNitrite, UANegativeNegative - Positive NOMS HealthcarepH, UA6.55 - 9NOFL HealthcareProtein, UANegativeNegative - 2000(20) ++++ mg/dLMadison Medical CenterSpec Grav, UA1.0051 - 1.03NOMissouri Southern Healthcare Urobilinogen, UA2.00.2 - 12 mg/dLCarondelet Health HealthcareCNPNon 01-29-2025 CNPNTelephone ([place]) SANNA RENDON ([id number]) 1985 F Date Time Provider Department 01/29/25 [...] call OB to discuss Providers: Thoughts? MARSHA Rsuh Holly, APRN.TOR 02/05/2025 9:58 AM Signed Please [...] Date Reviewed: 12/24/2024 Reviewed by: Katherine Negrete APRN.POWER WASHER - Fully Assessed Reason for Visit: Fatigue [...] Status:Closed by RACHAEL JOHNSON on 01/30/25[facility] HospitalCNPNon 17-36-6421OYLQQykdrlxyx ([place]) SANNA RENDON ([id number]) 1985 F Date Time Provider Department 01/26/25 [...] Date Reviewed: 12/24/2024 Reviewed by: Katherine Negrete APRN.POWER WASHER - Fully Assessed Prescriptions as of 01/26/2025 [...] 05/28/2024 Encounter Status:Closed by RACHAEL JOHNSON on 01/26/25NoProMedica Memorial HospitalUrinalysis macro (dipstick) panel (U)on 53-16-4020Xhamqcakf, UANegative Negative - 4(70) +++ mg/dLNOMS HealthcareBlood, [...] HealthcareUrobilinogen, UA0.20.2 - 12 mg/dLNOMS HealthcareNOMS HealthcareTSHon 49-25-0152JUB Qn1.85 m[IU]/LNormal 0.34-5.60[facility]tering Memorial HospitalComment on above:Performed By: #### [id number] #### Braulio [facility] [address] [place], [place] [address]Otfdhtosqi macro (dipstick) panel (U)on 15-41-8804Knteejglh, UA NegativeNegative - 4(70) +++ mg/dLNOMS HealthcareBlood, [...] HealthcareNOMS HealthcareCBC W Auto Differential panel (Bld)on 02-78-0090Mttekomao (Bld) [#/Vol]10*3/uLNormal<0.11CBarnesville HospitalComment on above:Order Comment: Specimen Type: BLOOD SPECIMENOrdering Facility: [facility] Address:[address] [place], [place] [address]Kifgycljc By: #### 40452-2 ####ES [facility] LABCLIA [id number] [place], [place] [address]Svpqjxudi/100 WBC (Bld)0.2 % NormalEast [place] Regional Hospital on above:Order Comment: Specimen Type: BLOOD SPECIMENOrdering Facility: [facility] Address:[address] [place], [place] [address]Performed By: #### 97985-0 ####[facility] LABCLIA [id number] [place] [address] Differential cell count method Nom (Bld)AutoNormalClevelOur Community Hospital Comment on above:Order Comment: Specimen Type: BLOOD SPECIMENOrdering Facility: [facility] Address:[address] [place] [address] Performed By: #### 76219-7 ####[facility] LABIA [id number] [place], [place] [address]Jzgauuwiykn (Bld) [#/Vol]0.03 10*3/uLNormal<0.46[facility] [place] [facility] on above:Order Comment: Specimen Type: BLOOD SPECIMENOrdering Facility: [facility] Address:[address] [place], [place] [address]Performed By: #### 61323-1 ####[facility] LABCLIA [id number] [place], [place] [address]Ktgorirttcx/100 WBC (Bld)0.4 %NormalEast [place] Regional Hospital on above:Order Comment: Specimen Type: BLOOD SPECIMENOrdering Facility: [facility] Address:[address] [place], [place] [address]Performed By: #### 13370-5 ####[facility] LABIA [id number] [place], [place] [address]Gvmskgncnkl distribution width (RBC) [Ratio]13.5 %Jpttbv44.5-15.0[facility] [place] [facility] on above: Order Comment: Specimen Type: BLOOD SPECIMENOrdering Facility: [facility] Address:[address] [place], [place] [address]Performed By: #### 09088- 8 ####[facility] LABCLIA [id number] [place], [place] [address]Ffeogebavi (Bld) [Volume fraction]34.6 %Low36.0-46.0 [facility] [place] [facility] on above:Order Comment: Specimen Type: BLOOD SPECIMENOrdering Facility: [facility] Address:[address] [place], [place] [address]Performed By: #### 23139-0 ####[facility] LABIA [id number] [place], [place] [address]Olenvvvbtm (Bld) [Mass/Vol]12.0 g/vTYvispy42.5-15.5CProMedica Toledo Hospital on above: Order Comment: Specimen Type: BLOOD SPECIMENOrdering Facility: [facility] Address:[address] [place], [place] [address]Performed By: #### 52879- 8 ####[facility] LABIA [id number] [place], [place] [address]Guxvooqm granulocytes (Bld) [#/Vol]0.04 10*3/uLNormal <0.10[facility] [place] [facility] on above:Order Comment: Specimen Type: BLOOD SPECIMENOrdering Facility: [facility] Address:[address] [place], [place] [address]Performed By: #### 01816-6 ####[facility] LABIA [id number] [place], [place] [address]Uwjhfiot granulocytes/100 WBC (Bld)0.5 %NormalEast [place] Regional Hospital on above: Order Comment: Specimen Type: BLOOD SPECIMENOrdering Facility: [facility] Address:[address] [place], [place] [address]Performed By: #### 77218- 8 ####[facility] LABIA [id number] [place], [place] [address]Ocqjxrvoeaj (Bld) [#/Vol]2.45 10*3/uLNormal1.00-4.00 [facility] [place] [facility] on above:Order Comment: Specimen Type: BLOOD SPECIMENOrdering Facility: [facility] Address:[address] [place], [place] [address]Performed By: #### 88620-4 ####[facility] LABCLIA [id number] [place], [place] [address]Brwvzxkbrua/100 WBC (Bld)28.7 %NormalEast [place] Regional Hospital on above:Order Comment: Specimen Type: BLOOD SPECIMENOrdering Facility: [facility] Address:[address] [place], [place] [address]Performed By: #### 40881-4 ####[facility] LABIA [id number] [place], [place] [address]YDP (RBC) [Entitic mass]31.6 qsPijscr23.0-34.0[facility] [place] [facility] on above:Order Comment: Specimen Type: BLOOD SPECIMENOrdering Facility: [facility] Address:[address] [place], [place] [address]Performed By: #### 30441-3 ####[facility] LABIA [id number] [place], [place] [address]NWIH (RBC) [Mass/Vol]34.7 g/sTMmyiyj73.5-36.0[facility] [place] [facility] on above: Order Comment: Specimen Type: BLOOD SPECIMENOrdering Facility: [facility] Address:[address] [place], [place] [address]Performed By: #### 74801- 8 ####[facility] LABIA [id number] [place], [place] [address]YLS (RBC) [Entitic vol]91.1 fBBrihgm10.0-100.0[facility] [place] [facility] on above:Order Comment: Specimen Type: BLOOD SPECIMENOrdering Facility: [facility] Address:[address] [place], [place] [address]Performed By: #### 10376-1 ####[facility] LABCLIA [id number] [place], [place] [address]Rdalggkaq (Bld) [#/Vol]0.44 10*3/uLNormal<0.87[facility] [place] [facility] on above:Order Comment: Specimen Type: BLOOD SPECIMENOrdering Facility: [facility] Address:[address] [place], [place] [address]Performed By: #### 95768- 8 ####[facility] LABCLIA [id number] [place], [place] [address]Jiemkpeeh/100 WBC (Bld)5.1 %NormalEast [place] Regional Hospital on above:Order Comment: Specimen Type: BLOOD SPECIMENOrdering Facility: [facility] Address:[address] [place], [place] [address]Performed By: #### 32444-5 ####[facility] LABCLIA [id number] [place], [place] [address]Gduqwbtrlvq (Bld) [#/Vol]5.57 10*3/uLNormal1.45-7.50[facility] [place] [facility] on above:Order Comment: Specimen Type: BLOOD SPECIMENOrdering Facility: [facility] Address:[address] [place], [place] [address]Performed By: #### 29916-5 ####[facility] LABCLIA [id number] [place], [place] [address]Xaersosysgq/100 WBC (Bld)65.1 %NormalEast [place] Regional Hospital on above:Order Comment: Specimen Type: BLOOD SPECIMENOrdering Facility: [facility] Address:[address] [place], [place] [address]Performed By: #### 51670-8 ####[facility] LABIA [id number] [place], [place] [address]Zpcfxkpsp RBC (Bld) [#/Vol] 10*3/uLNormal<0.01[facility] [place] [facility] on above:Order Comment: Specimen Type: BLOOD SPECIMENOrdering Facility: [facility] Address:[address] [place], [place] [address]Performed By: #### 06799-3 ####[facility] LABCLIA [id number] [place], [place] [address]Isyedcvjx RBC/100 WBC (Bld) [Ratio]0.0 /100 WBCNormal [facility] [place] [facility] on above:Order Comment: Specimen Type: BLOOD SPECIMENOrdering Facility: [facility] Address:[address] [place], [place] [address]Performed By: #### 37412-6 ####[facility] LABCLIA [id number] [place], [place] [address]Ttvpwwis mean volume (Bld) [Entitic vol]9.7 fLNormal9.0-12.7CProMedica Toledo Hospital on above:Order Comment: Specimen Type: BLOOD SPECIMENOrdering Facility: [facility] Address:[address] [place] [address] Performed By: #### 83960-9 ####[facility] LABCLIA [id number] [place], [place] [address]Amxinlhvl (Bld) [#/Vol]260 10*3/dVAccabl343-967VzyfqegcxEast [place] Regional Hospital on above:Order Comment: Specimen Type: BLOOD SPECIMENOrdering Facility: [facility] Address:[address] [place], [place] [address]Performed By: #### 99838-4 ####[facility] LABCLIA [id number] [place], [place] [address]QTX (Bld) [#/Vol]3.80 10*6/uLLow3.90-5.20[facility] [place] [facility] on above:Order Comment: Specimen Type: BLOOD SPECIMENOrdering Facility: [facility] Address:[address] [place], [place] [address]Performed By: #### 42912-4 ####[facility] LABCLIA [id number] [place], [place] [address]VZD (Bld) [#/Vol]8.55 10*3/uL Normal3.70-11.00[facility] [place] [facility] on above:Order Comment: Specimen Type: BLOOD SPECIMENOrdering Facility: [facility] Address:[address] [place], [place] [address]Performed By: #### 30375-9 ####[facility] LABCLIA [id number] [place], [place] [address]YBSCCQwo 05-70-2837TPOGGKJvmuv (SP) Office ([place]) JUSTICE,SANNA ([id number]) 1985 F Date Time Provider Department 12/23/24 11:30 AM KATHERINE NEGRETE During your visit today, we recorded the following information about you: Temperature Pulse Respiration Blood pressure 97.6 degrees 80/minute 16/minute 103/69 Weight Height 94.4 kg 1.677 m Katherine Negrete APRN.CNP 12/24/2024 9:07 PM Signed NAME: Sanna Rendon CLINIC NO.: [id number] DATE OF SERVICE: December 23, 2024 ([place]) Some elements in this clinic note that are critical to medical decision making have been carefully reviewed and included from a prior clinic note dated: October 28, 2024 ([place]) Additional Clinicians involved in Sanna Rendon's care: Jorge Mcwilliams, Humaira Gaviria, Dr. Boothe CC: [facility] CASE SUMMARY / ASSESSMENT: 39 year old woman presents with a prior history of CVA in 2016 and an antiphospholipid antibody that was identified much later in 2018. These were found in [place], [place]. I don't have access to these [...] target-like rash shortly before presenting to [facility] in 2016 with headaches and was [...] vitamin D supplementat (more content not included)...Normal [facility]prehensive metabolic 2000 panelon 54-92-1531Cqhsivl [Mass/Vol]4.1 g/dLNormal3.9-4.9CProMedica [facility]edo Hospital on above:Order Comment: Specimen Type: BLOOD SPECIMENOrdering Facility: [facility] Address:[address] [place], [place] [address]Yvshsnnje By: #### 76694- 8 ####[facility] LABCLIA [id number] [place], [place] [address]ZUA [Catalytic activity/Vol]43 U/ZRwelbz59-139LvywahbmeEast [place] Regional Hospital on above:Order Comment: Specimen Type: BLOOD SPECIMENOrdering Facility: [facility] Address:[address] [place], [place] [address]Performed By: #### 33111-0 ####[facility] LABCLIA [id number] [facility] [place], [place] [address]RJQ [Catalytic activity/Vol]11 U/LNormal7-38[facility] [place] [facility] on above:Order Comment: Specimen Type: BLOOD SPECIMENOrdering Facility: [facility] Address:[address] [place], [place] [address]Performed By: #### 97745- 8 ####[facility] LABCLIA [id number] [place], [place] [address]Gukkr gap [Moles/Vol]12 mmol/LNormal8-15[facility] [place] [facility] on above:Order Comment: Specimen Type: BLOOD SPECIMENOrdering Facility: [facility] Address:[address] [place], [place] [address]Performed By: #### 35468-4 ####[facility] LABCLIA [id number] [place], [place] [address]IZQ [Catalytic activity/Vol]12 U/TBps18-10HjlnpodntEast [place] Regional Hospital on above:Order Comment: Specimen Type: BLOOD SPECIMENOrdering Facility: [facility] Address:[address] [place], [place] [address]Performed By: #### 50364-7 ####[facility] LABCLIA [id number] [place] [address] Bilirubin [Mass/Vol]0.2 mg/dLNormal0.2-1.3CProMedica Toledo Hospital on above:Order Comment: Specimen Type: BLOOD SPECIMENOrdering Facility: [facility] Address:[address] [place], [place] [address]Performed By: #### 17561-6 ####[facility] LABCLIA [id number] [place], [place] [address]Ztnmpbn [Mass/Vol]9.5 mg/dLNormal8.5-10.2CProMedica [facility]edo Hospital on above:Order Comment: Specimen Type: BLOOD SPECIMENOrdering Facility: [facility] Address:[address] [place], [place] [address]Performed By: #### 32149-3 ####[facility] LABCLIA [id number] [place], [place] [address]Ismydpyh [Moles/Vol]98 mmol/AAigqnn98-100KwasgqjfuEast [place] Regional Hospital on above:Order Comment: Specimen Type: BLOOD SPECIMENOrdering Facility: [facility] Address:[address] [place], [place] [address]Performed By: #### 02559- 8 ####[facility] LABCLIA [id number] [place], [place] [address]AP6 [Moles/Vol]20 mmol/ZJxb45-11NezyqephnEast [place] Regional Hospital on above:Order Comment: Specimen Type: BLOOD SPECIMENOrdering Facility: [facility] Address:[address] [place], [place] [address]Performed By: #### 32505-7 ####[facility] LABCLIA [id number] [place], [place] [address]Zkeouvsbgz [Mass/Vol]0.54 mg/dL Low0.58-0.96[facility] [place] [facility] on above:Order Comment: Specimen Type: BLOOD SPECIMENOrdering Facility: [facility] Address:[address] [place], [place] [address]Performed By: #### 60381-1 ####[facility] LABCLIA [id number] [place] [address] eGFRcr SerPlBld CKD-EPI 1531292 mL/min/1.73m???Normal>=60[facility] [place] [facility] on above:Order Comment: Specimen Type: BLOOD SPECIMENOrdering Facility: [facility] Address:[address] [place], [place] [address]Result Comment: Estimated Glomerular Filtration Rate (eGFR) is [...] accurately reflect actual GFR. Performed By: #### 38878-5 ####[facility] LABCLIA [id number] [place], [place] [address]Ggujuef [Mass/Vol]104 mg/dLHigh 74-99[facility] [place] [facility] on above:Order Comment: Specimen Type: BLOOD SPECIMENOrdering Facility: [facility] Address:[address] [place] [address]Result Comment: The [place] Diabetes Association (ADA) provides guidance for cutoff [...] Standards of Medical Care in Diabetes 2016, [place] Diabetes Association. Diabetes Care. 2016.39(Suppl 1).Performed By: #### 36113-7 ####[facility] LABCLIA [id number] [place], [place] [address]Ukjgibeyj [Moles/Vol]4.0 mmol/LNormal3.7-5.1CProMedica [facility] Hospital on above:Order Comment: Specimen Type: BLOOD SPECIMENOrdering Facility: [facility] Address:[address] [place] [id number] By: #### 78432-2 ####[facility] LABCLIA [id number] [place], [place] [address]Dogpitg [Mass/Vol]6.7 g/dLNormal6.3-8.0[facility] [place] [facility] on above:Order Comment: Specimen Type: BLOOD SPECIMENOrdering Facility: [facility] Address:[address] [place], [place] [address]Performed By: #### 84973- 8 ####[facility] LABCLIA [id number] [place], [place] [address]Acrvbq [Moles/Vol]130 mmol/KUwh168-505HtcykmdqoEast [place] Regional Hospital on above:Order Comment: Specimen Type: BLOOD SPECIMENOrdering Facility: [facility] Address:[address] [place], [place] [address]Performed By: #### 52956-7 ####[facility] LABCLIA [id number] [place], [place] [address]Deiu nitrogen [Mass/Vol]7 mg/dL Normal7-21[facility] [place] [facility] on above:Order Comment: Specimen Type: BLOOD SPECIMENOrdering Facility: [facility] Address:[address] [place], [place] [address]Performed By: #### 54097-4 ####[facility] LABCLIA [id number] [place] [address] Ferritin SerPl-mCncon 97-75-5112Mcchvcom [Mass/Vol]43.5 ng/xDEcykiv55.7-205.1 [facility] [place] [facility] on above:Order Comment: Specimen Type: BLOOD SPECIMENOrdering Facility: [facility] Address:[address] [place], [place] [address]Performed By: #### 64183-9, 2276-4, 2132-9 ####[facility] LABCLIA [id number] [place] [address] [place] OF AMERICAIron and Iron binding capacity panelon 12-23-2024 Iron [Mass/Vol]80 ug/mDTvdtey42-813EtffdkxmhEast [place] [facility] Hospital on above: Order Comment: Specimen Type: BLOOD SPECIMENOrdering Facility: [facility] Address:[address] [place], [place] [address]Performed By: #### 89905- 8, 2275-07, 2131-12 ####[facility] LABCLIA [id number] [place] [address] [place] AMERICAIron binding capacity [Mass/Vol]437 ug/jZEkxv164-460XncpfxyhiEast [place] [facility] Hospital on above:Order Comment: Specimen Type: BLOOD SPECIMENOrdering Facility: [facility] Address:[address] [place], [place] [address]Performed By: #### 67580- 8, 2275-07, 2131-12 ####[facility] LABCLIA [id number] [place] [address] [place] AMERICAIron/TIBC [Molar ratio]18.3 %Ewpmqf79.0-57.0[facility] [place] [facility] on above:Order Comment: Specimen Type: BLOOD SPECIMENOrdering Facility: [facility] Address:[address] [place], [place] [address]Performed By: #### 72317- 8, 2275-07, 2131-12 ####[facility] LABCLIA [id number] [place] [address] [place] AMERICAVit B12 SerPl-mCncon 96-94-5752Ktfdexqvj (Vitamin B12) [Mass/Vol]328 pg/fDLutncm791-2678RxijfmtsrProMedica Toledo Hospital on above:Order Comment: Specimen Type: BLOOD SPECIMENOrdering Facility: [facility] Address:[address] [place], [place] [address]Performed By: #### 34239-6, 2275-07, 2131-12 ####[facility] LABCLIA [id number] [place] [id number] [place] OF AMERICATBH UA (CLEAN/CATCH) INVESTMENT FUND MANAGER/MICRO IF IND.on 95-71-8293RZMMOPXXO URINENegativeNEGATIVENOMS HealthcareBLOOD URINENegative NEGATIVENOMS HealthcareClarity (U)CLEARCLEARNOMS HealthcareColor (U)LT. YELLOW YELLOWNOMS HealthcareGLUCOSE URINE UANegativeNEGATIVE mg/dLNOMS Healthcare Interpretation and review of laboratory resultsAbnormalNOMS HealthcareKetones Ql (U)NegativeNEGATIVE mg/dLNOMS HealthcareLeukocyte esterase Test strip Ql (U) SMALLAbnormalNEGATIVENOMS HealthcareNITRITE URINENegativeNEGATIVENOMS Healthcare pH (U)6.0 [pH]5.0 - 9.0NOMS HealthcarePROTEIN URINENegativeNEG/TRACE mg/dLNOMS HealthcareSPECIFIC GRAVITY URINE<=1.332Hdpqsgbu1.005 - 1.025NOFL HealthcareURINE MICROSCOPIC INDICATEDYESNOMS HealthcareUROBILINOGEN URINE0.2 EU/dL0.2 - 1.0 EU/dLNOMS HealthcareCLINISYNCNOMS HealthcareUS OB CERVICAL LENGTHon 12-16-2024 [place] [address] Ultrasound Report Signed Patient: SANNA RENDON MR#: [id number] : 1985 Acct:[id number] Age/Sex: 39 / F ADM Date: Loc: [facility] 251-[address]: Wilton Herrmann D.O. Ordering Physician: Wilton Herrmann D.O. Date of Service: 12/16/24 Procedure(s): US OB cervical length Accession Number(s): [id number] cc: Wilton Herrmann D.O.; PENELOPE CASAS [place] [id number] Patient Name: SANNA RENDON MRN: [id number] date: 1985 Sex: F Assigned Patient Location: [facility] Current Patient Location: Accession/Order Number: [id number] Exam Date: 12/16/2024 20:39 Report Date: 12/16/2024 [...] Beltrán M.D. 12/16/2024 8:41 PM Dictation Location: [place] [address] Electronically authenticated by: [id number] Y Date: 12/16/2024 20:41 Dictated By: Robert Beltrán D.O. Signed By: 12/16/242042 DD/ 40 TD/TT: Technical Sales Engineer:TBHRadiology, Radiologist, - 12/16/2024 [place] [address] Ultrasound Report Signed Patient: SANNA RENDON MR#: [id number] : 1985 Acct:[id number] Age/Sex: 39 / F ADM Date: Loc: [facility] 251- Attending Dr: Wilton Herrmann D.O. Ordering Physician: Wilton Herrmann D.O. Date of Service: 12/16/24 Procedure(s): US OB cervical length Accession Number(s): [id number] cc: Wilton Herrmann D.O.; PENELOPE CASAS [place] [address] Patient Name: SANNA RENDON MRN: [facility]:[id number] date: 1985 Sex: F Assigned Patient Location: [facility] Current Patient Location: Accession/Order Number: [id number] Exam Date: 12/16/2024 20:39 Report Date: 12/16/2024 [...] Beltrán M.D. 12/16/2024 8:41 PM Dictation Location: [facility] Electronically authenticated by: [id number] Y Date: 12/16/2024 20:41 Dictated By: Robert Beltrán D.O. Signed By: 12/16/242042 DD/ 40 TD/TT: Technical Sales Engineer: [facility] HealthcareRadiology Study observation (narrative)[facility] HealthcareUS OB CERVICAL LENGTHOrdered By: Radiologist Radiology on [id number] Healthcare Work Phone: aLL THYROID STIM HORMONEon [id number] Qn1.508 m[IU]/LNOMS HealthcareCLINISYNCNOMS HealthcareUrinalysis macro (dipstick) panel (U)on [id number], UANegativeNegative - 4(70) +++ mg/dLNOMS Healthcare Blood, [...] HealthcareNOMS Healthcare Urinalysis macro (dipstick) panel (U)on 08-58-5001Rpjquvqmi, UANegativeNegative - 4(70) +++ mg/dLNOMS HealthcareBlood, UANegativeNegative [...] 12 mg/dLNOMS HealthcareNOMS HealthcareGlucose random or fasting- [facility]2024 External Glucose Fasting Or Random (Fbs)94Excela Frick HospitalUrinalysis macro (dipstick) panel (U)on 90-13-7907Mxvqhzaoa, UA NegativeNegative - 4(70) +++ mg/dLNOMS HealthcareBlood, [...] 1.03NOMS HealthcareUrobilinogen, UA0.20.2 - 12 mg/dLNOMS HealthcareNOMS Rdbqmigtgw80([place])D3 [facility] [place] [id number]-zvnjqswhshiziz D3 [Mass/Vol]32.1 ng/aQSmbbup33.0-80.0[facility] [place] [facility] on above:Order Comment: Specimen Type: BLOOD SPECIMENOrdering Facility: [facility] Address:[address] [place], [place] [address]Result Comment: Classification of 25 [place] Vitamin D status: Deficiency/Insufficiency: < or = 30 ng/ml. Sufficiency/Optimal Levels: 31-80 ng/mL Toxicity: > 100 ng/mL. Test performed by chemiluminescent immunoassay.Performed By: #### 1989-3 ####[facility] LABCLIA [id number] [facility] [id number] [place] [address] W Auto Differential panel (Bld)on 31-16-4868Zulcqlcex (Bld) [#/Vol]0.03 10*3/uLNormal<0.11CPro[facility]ica [facility] on above:Order Comment: Specimen Type: BLOOD SPECIMENOrdering Facility: [facility] Address:[address] [place], [place] [address]Performed By: #### 87470-3 ####[facility] LABCLIA [id number] [place], [place] [address]Iuthsnrbp/100 WBC (Bld)0.3 % NormalEast [place] Regional Hospital on above:Order Comment: Specimen Type: BLOOD SPECIMENOrdering Facility: [facility] Address:[address] [place], [place] [address]Performed By: #### 59406-8 ####[facility] LABCLIA [id number] [place] [address] Differential cell count method Nom (Bld)AutoNormalCBarnesville Hospital Comment on above:Order Comment: Specimen Type: BLOOD SPECIMENOrdering Facility: [facility] Address:[address] [place] [address] Performed By: #### 50517-1 ####[facility] LABCLIA [id number] [place], [place] [address]Xohctaycbmj (Bld) [#/Vol]0.05 10*3/uLNormal<0.46[facility] [place] [facility] on above:Order Comment: Specimen Type: BLOOD SPECIMENOrdering Facility: [facility] Address:[address] [place], [place] [address]Performed By: #### 55562-0 ####[facility] LABCLIA [id number] [place], [place] [address]Btmiypzttxl/100 WBC (Bld)0.5 %NormalEast [place] Regional Hospital on above:Order Comment: Specimen Type: BLOOD SPECIMENOrdering Facility: [facility] Address:[address] [place], [place] [address]Performed By: #### 11313-6 ####[facility] LABCLIA [id number] [place], [place] [address]Kytyvviicyv distribution width (RBC) [Ratio]14.5 %Depigp08.5-15.0[facility] [place] [facility] on above: Order Comment: Specimen Type: BLOOD SPECIMENOrdering Facility: [facility] Address:[address] [place], [place] [address]Performed By: #### 22039- 8 ####[facility] LABCLIA [id number] [place], [place] [address]Ywzktcxllr (Bld) [Volume fraction]36.9 %Wmqhit78.0-46.0 [facility] [place] [facility] on above:Order Comment: Specimen Type: BLOOD SPECIMENOrdering Facility: [facility] Address:[address] [place], [place] [address]Performed By: #### 79345-9 ####[facility] LABCLIA [id number] [place], [place] [address]Cpfpzfsreg (Bld) [Mass/Vol]13.0 g/tLWxrbkc26.5-15.5CProMedica Toledo Hospital on above: Order Comment: Specimen Type: BLOOD SPECIMENOrdering Facility: [facility] Address:[address] [place], [place] [address]Performed By: #### 95215- 8 ####[facility] LABCLIA [id number] [place], [place] [address]Bikjhktn granulocytes (Bld) [#/Vol]10*3/uLNormal<0.10 [facility] [place] [facility] on above:Order Comment: Specimen Type: BLOOD SPECIMENOrdering Facility: [facility] Address:[address] [place], [place] [address]Performed By: #### 61044-1 ####[facility] LABCLIA [id number] [place], [place] [address]Uzsxqbzm granulocytes/100 WBC (Bld)0.2 %NormalEast [place] Regional Hospital on above: Order Comment: Specimen Type: BLOOD SPECIMENOrdering Facility: [facility] Address:[address] [place], [place] [address]Performed By: #### 57230- 8 ####[facility] LABCLIA [id number] [place], [place] [address]Jzpwoubbfue (Bld) [#/Vol]2.50 10*3/uLNormal1.00-4.00 [facility] [place] [facility] on above:Order Comment: Specimen Type: BLOOD SPECIMENOrdering Facility: [facility] Address:[address] [place], [place] [address]Performed By: #### 80439-8 ####[facility] LABIA [id number] [place], [place] [address]Qiblleecjmo/100 WBC (Bld)26.3 %NormalEast [place] Regional Hospital on above:Order Comment: Specimen Type: BLOOD SPECIMENOrdering Facility: [facility] Address:[address] [place], [place] [address]Performed By: #### 20465-6 ####[facility] LABIA [id number] [place], [place] [address]EQP (RBC) [Entitic mass]30.6 pkSahzgc10.0-34.0[facility] [place] [facility] on above:Order Comment: Specimen Type: BLOOD SPECIMENOrdering Facility: [facility] Address:[address] [place], [place] [address]Performed By: #### 17888-5 ####[facility] LABIA [id number] [place], [place] [address]TBVB (RBC) [Mass/Vol]35.2 g/zZVfqrvt71.5-36.0[facility] [place] [facility] on above: Order Comment: Specimen Type: BLOOD SPECIMENOrdering Facility: [facility] Address:[address] [place], [place] [address]Performed By: #### 63562- 8 ####[facility] LABIA [id number] [place], [place] [address]IAF (RBC) [Entitic vol]86.8 gEStwjzz17.0-100.0[facility] [place] [facility] on above:Order Comment: Specimen Type: BLOOD SPECIMENOrdering Facility: [facility] Address:[address] [place], [place] [address]Performed By: #### 66687-4 ####[facility] LABIA [id number] [place], [place] [address]Ksgjqhdjj (Bld) [#/Vol]0.44 10*3/uLNormal<0.87[facility] [place] [facility] on above:Order Comment: Specimen Type: BLOOD SPECIMENOrdering Facility: [facility] Address:[address] [place], [place] [address]Performed By: #### 12631- 8 ####[facility] LABIA [id number] [place], [place] [address]Lkvbubvvf/100 WBC (Bld)4.6 %NormalEast [place] Regional Hospital on above:Order Comment: Specimen Type: BLOOD SPECIMENOrdering Facility: [facility] Address:[address] [place], [place] [address]Performed By: #### 56457-5 ####[facility] LABIA [id number] [place], [place] [address]Vbdmdmvapad (Bld) [#/Vol]6.48 10*3/uLNormal1.45-7.50[facility] [place] [facility] on above:Order Comment: Specimen Type: BLOOD SPECIMENOrdering Facility: [facility] Address:[address] [place], [place] [address]Performed By: #### 22332-0 ####[facility] LABCLIA [id number] [place], [place] [address]Ftcnkngwevr/100 WBC (Bld)68.1 %NormalEast [place] Regional Hospital on above:Order Comment: Specimen Type: BLOOD SPECIMENOrdering Facility: [facility] Address:[address] [place], [place] [address]Performed By: #### 15323-3 ####[facility] LABCLIA [id number] [place], [place] [address]Gajartyhn RBC (Bld) [#/Vol] 10*3/uLNormal<0.01[facility] [place] [facility] on above:Order Comment: Specimen Type: BLOOD SPECIMENOrdering Facility: [facility] Address:[address] [place], [place] [address]Performed By: #### 17335-0 ####[facility] LABCLIA [id number] [place], [place] [address]Iuucipbia RBC/100 WBC (Bld) [Ratio]0.0 /100 WBCNormal [facility] [place] [facility] on above:Order Comment: Specimen Type: BLOOD SPECIMENOrdering Facility: [facility] Address:[address] [place], [place] [address]Performed By: #### 29059-5 ####[facility] LABIA [id number] [place], [place] [address]Uoeuqnpo mean volume (Bld) [Entitic vol]9.8 fLNormal9.0-12.7CProMedica [facility]edo Hospital on above:Order Comment: Specimen Type: BLOOD SPECIMENOrdering Facility: [facility] Address:[address] [place], [place] [address] Performed By: #### 90245-1 ####[facility] LABCLIA [id number] [place], [place] [address]Adipewvsc (Bld) [#/Vol]327 10*3/sYMrfssc668-237EwbixdvopEast [place] Regional Hospital on above:Order Comment: Specimen Type: BLOOD SPECIMENOrdering Facility: [facility] Address:[address] [place], [place] [address]Performed By: #### 78847-5 ####[facility] LABCLIA [id number] [place], [place] [address]FKV (d) [#/Vol]4.25 10*6/uLNormal3.90-5.20[facility] [place] [facility] on above:Order Comment: Specimen Type: BLOOD SPECIMENOrdering Facility: [facility] Address:[address] [place], [place] [address]Performed By: #### 97833-7 ####[facility] LABCLIA [id number] [place], [place] [address]YNE (d) [#/Vol]9.52 10*3/uLNormal3.70-11.00[facility] [place] [facility] on above: Order Comment: Specimen Type: BLOOD SPECIMENOrdering Facility: [facility] Address:[address] [place], [place] [address]Performed By: #### 50514- 8 ####[facility] LABIA [id number] [place], [place] [address]FYLKALxb 03-12-1067JLHPTZLxicm ([place]) Office ([place]) JUSTICE,SANNA ([id number]) 1985 F Date Time Provider Department 10/28/24 2:30 PM KATHERINE NEGRETE During your visit today, we recorded the following information about you: Temperature Pulse Respiration Blood pressure 97 degrees 82/minute 16/minute 122/77 Weight Last Period 94.1 kg 10/28/24 Katherine Negrete APRN.POWER WASHER 10/29/2024 9:44 PM Signed NAME: Sanna Rendon CLINIC NO.: [id number] DATE OF SERVICE: October 28, 2024 ([place]) [...] later in 2018. These were found in [place], [place]. I don't have access to these [...] target-like rash shortly before presenting to [facility] in 2016 with headaches and was [...] negative. Numbness and vi (more content not included)...NormalTriHealth McCullough-Hyde Memorial HospitalRosaura 63-07-2410TCEUGkjkspdtl (NCCAP) SANNA RENDON ([id number]) 1985 F Date Time Provider Department 10/28/24 KATHERINE NEGRETE During your visit today, we recorded the following information about you: Amarilis Haskinsy 10/28/2024 2:52 PM Signed Valeri Yeung RN [...] Will monitor. Thanks, Katherine Negrete APRN.Rachael Brown, RN 11/05/2024 12:51 PM Signed Pt updated. She reports she is unable to take aspirin. It makes my electrolytes go out of whack. I didn't take with my previous pregnancies and I am not comfortable taking this time either. She will continue with Lovenox, as recommended. Pt is scheduled for appt with higher education administrator, 11/19/24, Leyla Oh. She denies further questions, [...] 05/28/2024 Encounter Status:Closed by RACHAEL JOHNSON on 11/05/24NormalCGlenbeigh Hospitalprehensive metabolic 2000 panelon 04-17-3740Ulonsax [Mass/Vol]4.4 g/dLNormal3.9-4.9CProMedica [facility]edo Hospital on above:Order Comment: Specimen Type: BLOOD SPECIMENOrdering Facility: [facility] Address:[address] [place], [place] [address]Performed By: #### 92678-4 ####[facility] LABCLIA [id number] [place], [place] [address]CHO [Catalytic activity/Vol]55 U/HIbiphg75-938WtvbvifokEast [place] [facility] Hospital on above:Order Comment: Specimen Type: BLOOD SPECIMENOrdering Facility: [facility] Address:[address] [place], [place] [address]Performed By: #### 66300-5 ####[facility] LABCLIA [id number] [place], [place] [address]VRV [Catalytic activity/Vol]18 U/LNormal7-38[facility] [place] [facility] on above:Order Comment: Specimen Type: BLOOD SPECIMENOrdering Facility: [facility] Address:[address] [place], [place] [address]Performed By: #### 79190- 8 ####[facility] LABCLIA [id number] [place], [place] [address]Vvidc gap [Moles/Vol]12 mmol/LNormal8-15[facility] [place] [facility] on above:Order Comment: Specimen Type: BLOOD SPECIMENOrdering Facility: [facility] Address:[address] [place], [place] [address]Performed By: #### 90265-3 ####[facility] LABCLIA [id number] [place] [address]CHC [Catalytic activity/Vol]13 U/CFwwlle53-04WrlpilxydEast [place] [facility] Hospital on above:Order Comment: Specimen Type: BLOOD SPECIMENOrdering Facility: [facility] Address:[address] [place], [place] [address]Performed By: #### 63846-0 ####[facility] LABCLIA [id number] [place] [facility] [address] Bilirubin [Mass/Vol]0.2 mg/dLNormal0.2-1.3CProMedica Toledo Hospital on above:Order Comment: Specimen Type: BLOOD SPECIMENOrdering Facility: [facility] Address:[address] [place], [place] [address]Performed By: #### 75821-5 ####[facility] LABCLIA [id number] [place] AN[place]BRA[place] [address]Kacqsvh [Mass/Vol]9.9 mg/dLNormal8.5-10.2CProMedica [facility]edo Hospital on above:Order Comment: Specimen Type: BLOOD SPECIMENOrdering Facility: [facility] Address:[address] [place], [place] [address]Performed By: #### 07994-8 ####[facility] LABCLIA [id number] [facility]ITALRY JO [facility]NABRA[facility] [place], [place] [address]Kuafiggt [Moles/Vol]99 mmol/IGxwxve70-548CskznwmbbEast [place] [facility] Hospital on above:Order Comment: Specimen Type: BLOOD SPECIMENOrdering Facility: [facility] Address:[address] [place], [place] [address]Performed By: #### 38425- 8 ####[facility] LABCLIA [id number] [place], [place] [address]IN5 [Moles/Vol]22 mmol/OMyifqc03-68TezyadzqhEast [place] Regional Hospital on above:Order Comment: Specimen Type: BLOOD SPECIMENOrdering Facility: [facility] Address:[address] [place], [place] [address]Performed By: #### 34839-0 ####[facility] LABCLIA [id number] [place], [place] [address]Gmpwpldftk [Mass/Vol]0.60 mg/dL Normal0.58-0.96[facility] [place] [facility] on above:Order Comment: Specimen Type: BLOOD SPECIMENOrdering Facility: [facility] Address:[address] [place], [place] [address]Performed By: #### 46116-9 ####[facility] LABCLIA [id number] [place], [place] [address]Wvshginyul and Glomerular filtration rate.predicted panel (S/P/Bld)117 mL/min/1.73m???Normal>=60[facility] [place] [facility] on above:Order Comment: Specimen Type: BLOOD SPECIMENOrdering Facility: [facility] Address:[address] [place], [place] [address]Result Comment: Estimated Glomerular Filtration Rate (eGFR) is [...] not accurately reflect actual GFR.Performed By: #### 43532-9 ####[facility] LABCLIA [id number] [place], [place] [address]Picunzw [Mass/Vol]101 mg/aVYnxs53-54YlfwdjvtsEast [place] [facility] Hospital on above:Order Comment: Specimen Type: BLOOD SPECIMENOrdering Facility: [facility] Address:[address] [place], [place] [address]Result Comment: The [place] Diabetes Association (ADA) provides guidance for cutoff [...] Standards of Medical Care in Diabetes 2016, Australian Diabetes Association. Diabetes Care. 2016.39(Suppl 1).Performed By: #### 12956-4 ####[facility] LABCLIA [id number] [place], [place] [address]Pbjnusaij [Moles/Vol]3.5 mmol/LLow3.7-5.1CProMedica Toledo Hospital on above:Order Comment: Specimen Type: BLOOD SPECIMENOrdering Facility: [facility] Address:[address] [place], [place] [address]Performed By: #### 47578-4 ####[facility] LABIA [id number] [place], [place] [address]Ibirlhy [Mass/Vol]7.6 g/dL Normal6.3-8.0[facility] [place] [facility] on above:Order Comment: Specimen Type: BLOOD SPECIMENOrdering Facility: [facility] Address:[address] [place], [place] [address]Performed By: #### 14537-4 ####[facility] LABCLIA [id number] [place] [address] Sodium [Moles/Vol]133 mmol/VTgv894-489TihzfrfwgEast [place] [facility] Hospital on above:Order Comment: Specimen Type: BLOOD SPECIMENOrdering Facility: [facility] Address:[address] [place], [place] [address]Performed By: #### 50527-7 ####[facility] LABIA [id number] [place], [place] [address]Jsvu nitrogen [Mass/Vol]7 mg/dLNormal7-21Upper Valley Medical CenterComment on above:Order Comment: Specimen Type: BLOOD SPECIMENOrdering Facility: [facility] Address:[address] [place], [place] [address]Performed By: #### 59313-1 ####[facility] LABCLIA [id number] [place], [place] [address]Ycliljbh SerPl-ncon 33-07-6851Hvkkbvjp [Mass/Vol]99.6 ng/oGVqixgo94.7-205.1CProMedica Toledo Hospital on above:Order Comment: Specimen Type: BLOOD SPECIMENOrdering Facility: [facility] Address:[address] [place], [place] [address]Performed By: #### 2276-4, 83654-0, 9, 6-3 ####[facility] LABCLIA [id number] [place] [address] [place] OF AMERICAIron and Iron binding capacity panelon 88-99-9840Gxop [Mass/Vol]72 ug/bUPkoeva12-500CjrlulvagUpper Valley Medical Center Comment on above:Order Comment: Specimen Type: BLOOD SPECIMENOrdering Facility: [facility] Address:[address] [place] [address] Performed By: #### 2276-4, 17958-4, 9, 6-3 ####[facility] LABCLIA [id number] [place] [address] [place] AMERICAIron binding capacity [Mass/Vol]399 ug/wDSoid013-992DzmldstjlUpper Valley Medical CenterComup health system on above:Order Comment: Specimen Type: BLOOD SPECIMENOrdering Facility: [facility] Address:[address] [place], [place] [address]Performed By: #### 2276-4, 90467-3, 9, 6-3 ####[facility] LABCLIA [id number] [place] [id number] [place] OF AMERICAIron/TIBC [Molar ratio]18.0 % Cczqcz87.0-57.0[facility] [place] [facility] on above:Order Comment: Specimen Type: BLOOD SPECIMENOrdering Facility: [facility] Address:[address] [place], [place] [address]Performed By: #### 2276-4, 19886-6, 9, 3015-3 ####[facility] LABCLIA [id number] [place] [id number] [place] OF AMERICATSHon 10-28-2024 Thyroid Stimulating (3Rd Generation) Hormone/ Tsh1.25[facility] SerPl-aCncon 73-54-5974KNC Qn1.250 m[IU]/LNormal 0.270-4.200[facility] [place] [facility] on above:Order Comment: Specimen Type: BLOOD SPECIMENOrdering Facility: [facility] Address:[address] [place], [place] [address]Result Comment: If the patient is , TSH reference range varies by gestational period: First Trimester (weeks 9-12): 0.180-2.990 mIU/L Second Trimester: 0.110-3.980 mIU/L Third Trimester: 0.480-4.710 mIU/L Danny Varela et al. A Practical Approach for the Verifications and Determination of Site- and Trimester-Specific Reference Intervals for Thyroid Function tests in . Thyroid, 2019:29:3:412-420.Saeed Pan, et al. 2017 Guidelines of the [place] Thyroid Association for the Diagnosis and Management of Thyroid Disease during and the . Thyroid, 2017:27:3:315-389. Performed By: #### 2276-4, 82609-0, 9, 3015-3 ####[facility] LABCLIA [id number] [place] [id number] [place] OF AMERICAVit B12 SerPl-mCncon 56-08-2791Ifswtxdfi (Vitamin B12) [Mass/Vol]483 pg/bCTvojfq111-8702XjrbtyiduProMedica Toledo Hospital on above: Order Comment: Specimen Type: BLOOD SPECIMENOrdering Facility: [facility] Address:[address] [address]Performed By: #### 2276- 4, 24669-6, 2132-9, 3016-3 ####[facility] LABCLIA [id number] [place] [id number] [place] OF [facility] MEDICAL CENTERCNPNon 00-53-9821IUYKXhyvmdpga ([place]) SANNA RENDON ([id number]) 1985 F Date Time Provider Department 10/24/24 [...] and gassy Date Reviewed: 08/26/2024 Reviewed by: [place], Katherine, NURSING SERVICE DIRECTOR.POWER WASHER - Fully Assessed Reason for Visit: Lab Orders [1898] Prescriptions as of 10/24/2024 - enoxaparin (LOVENOX) [...] 05/28/2024 Encounter Status:Closed by KAUR DUNHAM on 10/24/24[facility] OB TRANSVAGINALon 28-72-0716WK OB TRANSVAGINALEXAM: US OB TRANSVAGINAL HISTORY: Viability, [...] II, MD, PHD at 21-Oct-2024 08:31:21 AM [facility] TeleradiologyNormalNot AvailableComment on above:Order Comment: US OB VIABILITY PLEASE PERFORM TRANSVAGINAL ULTRASOUND IF INDICATED No LMP recorded.ALL CBC WITH AUTO DIFFon 73-22-3103RXMLVJQLY ABSOLUTE MSJK6OEHG HealthcareBasophils/100 WBC (Bld)0.2 %0.2 - 2.0 %NOMS [...] HealthcareMCHC (RBC) [Mass/Vol] 34.6 g/dL29.9 - 35.2 g/dLNOMissouri Southern HealthcareMCV (RBC) [Entitic vol]86.2 fL81.0 - 99.0 fLNOMS HealthcareMONOCYTES ABSOLUTE AUTO0.6NOMS HealthcareMonocytes/100 WBC (Bld)7.2 %1.7 - 12.0 %NOMS HealthcareNEUTROPHILS ABSOLUTE AUTO5.6[facility] Neutrophils/100 WBC (Bld)62.8 %43.0 - 75.0 %NOMS HealthcarePlatelet mean volume (Bld) [Entitic vol]10.1 fL9.5 - 13.5 fLNOFL HealthcareTBH EO #0[facility] TBH SOB601BCKZ HealthcareTB RBC4.42NOMissouri Southern HealthcareTBH WBC8.9NOFL Healthcare CLINISYNCDrug Screen, Urineon 93-83-7412Xguzmckzqjw/MethamphetamineNegative [facility] Health SystemBarbituratesNegativeProMedica Health System BenzodiazepinesNegativeProMedica Health SystemCocaine MetaboliteNegative [facility] SystemEcstasyNegativeProMedica Health SystemMethadoneNegative [facility] Hospitaledica Health SystemOpiatesNegativeNorth Country HospitalMedica Health SystemOxycodoneNegative [facility] Health SystemPhencyclidineNegativeNorth Country HospitalMedica Health SystemThc Marijuana, UrineNegativeNorth Country HospitalMedica Health SystemHBV surface Ag IA Qlon 10-06-2024 Hepatitis B Surface AntigenNegativeMer[facility] Hospital SystemHIV 1+2 Ab+HIV1 p24 Ag IA Qlon 27-55-4051KPY 1&2 AB/AGNegativeNorth Country HospitalMedica [facility] Hospital SystemHemoglobin A1con 93-42-1731FnT0p (Bld) [Mass fraction]5.9 %4.0 - 6.0 %[facility] SystemNo Panel Informationon 27-06-5347UUUN HealthcareTSHon 74-47-5353Apyhsne Stimulating (3Rd Generation) Hormone/ Tsh1.131ProOhiohealth Mansfield Hospital SystemType and screenon 48-38-2999Vgb/Rh(D)NegativeMercy Hospital SystemHCG ( test) Ql (U)on 66-46-3488Wunmxjtxgbwgzh and review of laboratory resultsAbnormalMadison Medical Center Preg Test, UrPositiveNegativeMadison Medical CenterNOFL HealthcareUrinalysis macro (dipstick) panel (U)on 32-40-5538Yzqgjmxeb, UANegativeNegative - 4(70) +++ mg/dL NOM HealthcareBlood, UANegativeNegative - 50 Max/mcLNOFL HealthcareClarity, UA ClearNOFL HealthcareColor, UAYellowNOMS HealthcareGlucose, UANegativeNegative - 2000(110) ++++ mg/dLNOMS HealthcareInterpretation and review of laboratory resultsNormalNOMS HealthcareKetones, UANegativeNegative - 160(16) ++++ mg/dLNOMS HealthcareLeukocytes, UANegativeNegative - 500+++ John/mcLNOMS HealthcareNitrite, UANegativeNegative - PositiveNOMS HealthcarepH, UA65 - 9NOMS HealthcareProtein, UANegativeNegative - 2000(20) ++++ mg/dLNOMS HealthcareSpec Grav, UA1.0251 - 1.03NOMS HealthcareUrobilinogen, UA0.20.2 - 12 mg/dLNOMS HealthcareNOMS HealthcareUS OB TRANSVAGINALon 68-18-9787[place] [address] Ultrasound Report Signed Patient: SANNA RENDON MR#: [id number] : 1985 Acct:[id number] Age/Sex: 38 / F ADM Date: 09/11/24 Loc: US Attending Dr: Wilton Herrmann D.O. Ordering Physician: Wilton Herrmann D.O. Date of Service: 09/11/24 Procedure(s): US OB transvaginal Accession Number(s): [id number] cc: Wilton Herrmann D.O.; PENELOPE CASAS [place] [id number] Patient Name: SANNA RENDON MRN: [facility]:[id number] date: 1985 Sex: F Assigned Patient Location: [place] Current Patient Location: US Accession/Order Number: [id number] Exam Date: 09/11/2024 11:34 Report Date: 09/11/2024 [...] Montano M.D. 09/11/2024 11:36 AM Dictation Location: [place] [address] Electronically authenticated by: [id number] Y Date: 09/11/2024 11:36 Dictated By: Prudence Montano M.D. Signed By: 09/11/24 1138 DD/ 1136 TD/TT: Technical Sales Engineer:MANUELHRadiology, Radiologist, - 09/11/2024 [place] [address] Ultrasound Report Signed Patient: SANNA RENDON MR#: [id number] : 1985 Acct:[id number] Age/Sex: 38 / F ADM Date: 09/11/24 Loc: US Attending Dr: Wilton Herrmann D.O. Ordering Physician: Wilton Herrmann D.O. Date of Service: 09/11/24 Procedure(s): US OB transvaginal Accession Number(s): [id number] cc: Wilton Herrmann D.O.; PENELOPE CASAS [place] [address] Patient Name: SANNA RENDON MRN: [id number] date: 1985 Sex: F Assigned Patient Location: [place] Current Patient Location: [place] Accession/Order Number: [id number] Exam Date: 09/11/2024 11:34 Report Date: 09/11/2024 [...] Montano M.D. 09/11/2024 11:36 AM Dictation Location: [place] [address] Electronically authenticated by: [id number] Y Date: 09/11/2024 11:36 Dictated By: Prudence Montano M.D. Signed By: 09/11/24 1138 DD/ 1136 TD/TT: Technical Sales Engineer: SHILOH HealthcareRadiology Study observation (narrative)[facility] HealthcareUS OB TRANSVAGINALOrdered By: Radiologist Radiology on 45-42-5253[facility] Work Phone: bhcg Quanton 54-40-3144NXO.beta subunit Qv29594 m[IU]/mLHigh1-3[facility] Western MarylandComment on above:Result Comment: 'F NON < 1 - 3' ' 0.2 - 1 WEEK = 5 TO 50' ' 1 - 2 WEEKS = 50 - 500' ' 2 - 3 WEEKS = 100 - 5000' ' 3 - 4 WEEKS = 500 - 31502' ' 4 - 5 WEEKS = 1000 - 12621' ' 5 - 6 WEEKS = 44562 - 517143' ' 6 - 8 WEEKS = 83011 - 912800' ' 8 - 12 WEEKS = 29538 - 249305'Performed By: #### [id number] #### [facility] [address] [place], [place] [address]Ldwignimxn Visit Summaryon 68-09-4223Gpxcmzfmbl Visit Summary Ambulatory Visit Summary SANNA RENDON :1985 Visit Date:09/07/2024 Ambulatory Visit Instructions Your Diagnosis Viral URI with cough Cough Your Care Team Attending Physician - Romulo Chiu PA-C Primary Care Physician - Penelope CASAS DO, FAAFP This Is Your Medications List Contact prescribing physician if questions or concerns enoxaparin (Lovenox 40 mg/0.4 mL Injection) ergocalciferol (Vitamin D) fluticasone nasal (Flonase 0.05 mg/inh [place]) levothyroxine (levothyroxine 25 mcg (0.025 mg) Tab) [...] With: Penelope CASAS DO, FAAFP Where: [facility] [address] [place] [address], [place] [address]- Medications What How Much When Instructions Unchanged enoxaparin (Lovenox 40 mg/ 0.4 mL Injection) 40 Milligram Subcutaneous Every 24 hours Contact prescribing physician if questions or concerns Unchanged ergocalciferol (Vitamin D) 2,000 International unit By Mouth Every week Contact prescribing physician if questions or concerns Unchanged fluticasone nasal (Flonase 0.05 mg/ inh [place]) 2 Sprays Nasal Inhalation Every day each [...] you for choosing us for your care. [facility] Medicine Office/Clinic Noteon 57-90-9395Prupkv Medicine Office/Clinic NoteFapittsfield general hospital Medicine Office/Clinic Note Chief Complaint cough, [...] created with voice recognition software. Occasional wrong-word or???fuquh-a-rtse??? substitutions may have occurred due to the [...] days ago on Sunday. Has been using jgqh-qvn-zkrlguo cough drops and Flonase for her allergies. [...] duration. Discussed antibiotics un (more content not included)...[facility] CenterComment on above:Result Comment: Electronically Signed By: Aram QUINTEROS, Romulo Lynn\.br\Date and Time Signed: 09/07/2509:46 EDTCNPNon 98-58-7050SWRAIhsgprrsq (InVenture) SANNA RENDON ([id number]) 1985 F Date Time Provider Department 09/02/24 [...] Date Reviewed: 08/26/2024 Reviewed by: Katherine Negrete APRN.POWER WASHER - Fully Assessed Reason for Visit: Patient [...] 05/28/2024 Encounter Status:Closed by RACHAEL JOHNSON on 09/03/24[facility] [place] Quanton 68-39-8588DTI.beta subunit Qn558 m[IU]/mLHigh1-3FGrant HospitalComment on above:Result Comment: 'F NON < 1 - 3' ' 0.2 - 1 WEEK = 5 TO 50' ' 1 - 2 WEEKS = 50 - 500' ' 2 - 3 WEEKS = 100 - 5000' ' 3 - 4 WEEKS = 500 - 85726' ' 4 - 5 WEEKS = 1000 - 61402' ' 5 - 6 WEEKS = 70255 - 300438' ' 6 - 8 WEEKS = 33742 - 476231' ' 8 - 12 WEEKS = 16402 - 780434'Performed By: #### [id number] #### [facility] [address] [place], [place] [address]sarah [place], [place] [address]MrQC Quanton 07-95-0552TFW.beta subunit Qn188 m[IU]/mLHigh1-3 [facility] HospitalComment on above:Result Comment: 'F NON < 1 - 3' ' 0.2 - 1 WEEK = 5 TO 50' ' 1 - 2 WEEKS = 50 - 500' ' 2 - 3 WEEKS = 100 - 5000' ' 3 - 4 WEEKS = 500 - 66332' ' 4 - 5 WEEKS = 1000 - 71749' ' 5 - 6 WEEKS = 42995 - 561124' ' 6 - 8 WEEKS = 43223 - 212611' ' 8 - 12 WEEKS = 42311 - 424808'Performed By: #### [id number] #### [facility] [address] [place], [place] [address]RJHOci 92-43-0955YCEONfvzopazn (HEMASA) SANNA RENDON ([id number]) 1985 F Date Time Provider Department 08/26/24 [...] Date Reviewed: 08/26/2024 Reviewed by: Katherine Negrete APRN.POWER WASHER - Fully Assessed Reason for Visit: Lab Orders [1688] Primary Visit Diagnosis:Antiphospholipid antibody positive [R76.0] Other Visit Diagnoses: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] Malaise and fatigue [R53.81, R53.83] Vitamin D deficiency [E55.9] Order(s):COMPLETE BLOOD COUNT AND DIFFERENTIAL [SQCBCDIF] Order #: [id number] FUTURE COMPREHENSIVE METABOLIC PANEL [SQCMP] Order #: [id number] FUTURE THYROID STIMULATING HORMONE [SQTSH] Order #: [id number] FUTURE IRON AND TIBC [SQIRON] Order #: [id number] FUTURE FERRITIN [SQFERR] Order #: [id number] FUTURE VITAMIN D 25 HYDROXY [SQVITD] Order #: [id number] FUTURE VITAMIN B12 [SQB12] Order #: [id number] FUTURE Prescriptions as of 08/26/2024 - enoxaparin [...] 05/28/2024 Encounter Status:Closed by KATHERINE NEGRETE on 08/26/24[facility] [place] Quanton 27-70-6310BAJ.beta subunit Qn83 m[IU]/mLHigh1-3FGrant HospitalComment on above:Result Comment: 'F NON < 1 - 3' ' 0.2 - 1 WEEK = 5 TO 50' ' 1 - 2 WEEKS = 50 - 500' ' 2 - 3 WEEKS = 100 - 5000' ' 3 - 4 WEEKS = 500 - 95830' ' 4 - 5 WEEKS = 1000 - 00254' ' 5 - 6 WEEKS = 59788 - 902728' ' 6 - 8 WEEKS = 72544 - 920379' ' 8 - 12 WEEKS = 37629 - 980468'Performed By: #### [id number] #### [facility] [address], [place] [address]NkLW Quanton 81-01-0357SLI.beta subunit Qn22 m[IU]/mLHigh1-3 [facility] HospitalComment on above:Result Comment: 'F NON < 1 - 3' ' 0.2 - 1 WEEK = 5 TO 50' ' 1 - 2 WEEKS = 50 - 500' ' 2 - 3 WEEKS = 100 - 5000' ' 3 - 4 WEEKS = 500 - 65949' ' 4 - 5 WEEKS = 1000 - 61993' ' 5 - 6 WEEKS = 33582 - 245848' ' 6 - 8 WEEKS = 74336 - 885984' ' 8 - 12 WEEKS = 34980 - 613356'Performed By: #### [id number] #### [facility] [address], [place] [address]MJSMEOYTDYtjwqea By: SYSTEM SYSTEM on 08-75-8782BJB.beta subunit Qn22 m[IU]/mLHigh1 - 3 mIU/mLRemisol ChemComment on above:Result Comment: 'F NON < 1 - 3' ' 0.2 - 1 WEEK = 5 TO 50' ' 1 - 2 WEEKS = 50 - 500' ' 2 - 3 WEEKS = 100 - 5000' ' 3 - 4 WEEKS = 500 - 26237' ' 4 - 5 WEEKS = 1000 - 56126' ' 5 - 6 WEEKS = 40801 - 479429' ' 6 - 8 WEEKS = 77539 - 507857' ' 8 - 12 WEEKS = 05088 - 839719'TSH Qn1.86 m[IU]/LNormal0.34 - 5.60 mcIU/mLRemisol ChemTSHon 97-44-4216NXR Qn1.86 m[IU]/LNormal0.34-5.60[facility] HospitalComment on above:Performed By: #### [id number] #### [facility] [address], [place] [address]IRC ( test) Ql (U)on 88-89-9271Jfrphgzmmcdtwk and review of laboratory resultsNoHaven Behavioral HealthcarePre Test, UrNegativeNegative [facility].Interpretation:on 18-37-8794TSN Ab IA QlComment Invalid Interpretation [facility] HospitalComment on above:Result Comment: Not infected with HCV unless early or acute infection is suspected (which may be delayed in an immunocompromised individual), or other evidence exists to indicate HCV infection. Performed at: [facility]stownGuides.co[address] [id number] PhD Jd Garciaformed By: #### [id number] #### [facility] [address], [place] [address]JDA Antibody RFX to Quant PCRon 77-22-2192YGC Ab IA Ql Non-ReactiveInvalid Interpretation CodeNon ReactiveKettering Memorial Hospital Comment on above:Result Comment: Performed at: [address] [id number] PhD Jd Garciaformed By: #### [id number] #### [facility] [address], [place] [address]EFX Screen 4th Generation wRfxon 92-48-2524IZF 1+2 Ab+HIV1 p24 Ag IA QlNon-ReactiveInvalid Interpretation CodeNon ReactiveKettering Memorial HospitalComment on above:Result Comment: HIV-1/HIV-2 antibodies and HIV-1 p24 antigen were NOT detected. There is no laboratory evidence of HIV infection. HIV Negative Performed at: [address] [id number] PhD Jd Garciaformed By: #### [id number] #### [facility] [address], [place] [address]Bau Agon 47-48-4084WVF e Ag IA QlNegativeInvalid Interpretation CodeNegativeKettering Memorial HospitalComment on above:Result Comment: Performed at: [address] [id number] PhD Jd Garciaformed By: #### [id number] #### [facility] [address], [place] [address]Yqe [facility] 46-29-3356PRB surface Ag IA QlNegativeInvalid Interpretation CodeNegativeKettering Memorial HospitalComment on above:Result Comment: Performed at: [address] [id number] PhD Jd Garciaformed By: #### [id number] #### [facility] [address], [place] [address]QTZKPSTSMTpfqflb By: SYSTEM SYSTEM on 14-42-2213Degowmu [Mass/Vol]5.0 g/dLNormal3.3 - 5.0 gm/dLRemisol ChemAlbumin/Globulin [Mass ratio] 1.6 {ratio}Normal1.1 - 2.2Remisol ChemALP [Catalytic activity/Vol]49 [iU]/d Fqfrah39 - 98 Int._Unit/LRemisol ChemALT No additional P-5'-P [Catalytic activity/Vol]18 [iU]/dNormal6 - 46 Int._Unit/LRemisol ChemAnion gap [Moles/Vol] 13 mmol/LNormal6 - 16 mEq/LRemisol ChemAST [Catalytic activity/Vol]15 [iU]/d Normal5 - 43 Int._Unit/LRemisol ChemBilirubin [Mass/Vol]0.4 mg/dLNormal0.0 - 1.1 mg/dLRemisol ChemCalcium [Mass/Vol]10.0 mg/dLNormal8.9 - 11.1 mg/dLRemisol Chem Chloride [Moles/Vol]100 mmol/SZic745 - 111 mmol/LRemisol ChemCO2 [Moles/Vol]25 mmol/IBbmvrh29 - 31 mmol/LRemisol ChemCreatinine [Mass/Vol]0.7 mg/dLNormal0.5 - 1.3 mg/dLRemisol SrasjVHL786 mL/min/1.73 r0Rliwef>=59mL/min/1.73 z2Lzcjnuv Chem Globulin (S) [Mass/Vol]3.1 g/dLNormal1.4 - 4.0 gm/dLRemisol ChemGlucose [Mass/Vol]82 mg/rFVczekl48 - 199 mg/dLRemisol ChemPotassium [Moles/Vol]3.8 mmol/LNormal3.5 - 5.3 mmol/LRemisol ChemProtein [Mass/Vol]8.1 g/dLHigh6.0 - 7.8 gm/dLRemisol ChemSodium [Moles/Vol]134 mmol/XXoc088 - 145 mmol/LRemisol ChemUrea nitrogen [Mass/Vol]7 mg/dLNormal5 - 21 mg/dLRemisol ChemUrea nitrogen/Creatinine [Mass ratio]10 mg/thJcucfp84 - 20Remisol ChemCMPon 84-07-6778Huhrgkr [Mass/Vol]5.0 g/dLNormal3.3-5.0[facility] Comment on above:Performed By: #### [id number] #### [facility] [address], [place] [address]Xvhjazj/Globulin (S) [Mass conc ratio]1.9Pgpxpf7.1-2.2FGrant HospitalComment on above:Performed By: #### [id number] #### [facility] [address], [place] [address]BNS [Catalytic activity/Vol]49 Int._Unit/PSkmjre39-63VacrriKettering Memorial HospitalComment on above:Performed By: #### [id number] #### [facility] [address], [place] [address]UJH No additional P-5'-P [Catalytic activity/Vol]18 Int._Unit/L Normal6-46[facility] HospitalComment on above:Performed By: #### [id number] #### [facility] [address], [place] [address]Navmk gap [Moles/Vol]13 mmol/LNormal6-16[facility] HospitalComment on above:Performed By: #### [id number] #### [facility] [address] [place] [address]DVV [Catalytic activity/Vol]15 Int._Unit/LNormal5-43[facility] HospitalComment on above:Performed By: #### [id number] #### [facility] [address], [place] [address]Udkfkptye [Mass/Vol]0.4 mg/dLNormal0.0-1.1FGrant HospitalComment on above:Performed By: #### [id number] #### [facility] [address] [place] [address]Qdytxxz [Mass/Vol]10.0 mg/dLNormal8.9-11.1FGrant HospitalComment on above:Performed By: #### [id number] #### [facility] [address], [place] [address]Lkembteg [Moles/Vol]100 mmol/YHci545-679KdiecbKettering Memorial HospitalComment on above:Performed By: #### [id number] #### [facility] [address], [place] [address]JP3 [Moles/Vol]25 mmol/PDtjwsu46-21WcsbakKettering Memorial Hospital Comment on above:Performed By: #### [id number] #### [facility] [address], [place] [address]Opvhakpmyq [Mass/Vol]0.7 mg/dLNormal0.5-1.3FGrant HospitalComment on above:Performed By: #### [id number] #### [facility] [address], [place] [address]Letnjrqe (S) [Mass/Vol]3.1 g/dLNormal1.4-4.0[facility] HospitalComment on above:Performed By: #### [id number] #### [facility] [address], [place] [address]Mrcagul [Mass/Vol]82 mg/qBNfinef66-182YvmtsvKettering Memorial HospitalComment on above:Performed By: #### [id number] #### [facility] [address] [place] [address]Ongrjhdsq [Moles/Vol]3.8 mmol/LNormal3.5-5.3FGrant HospitalComment on above:Performed By: #### [id number] #### [facility] [address], [place] [address]Kkteecl [Mass/Vol]8.1 g/dLHigh6.0-7.8[facility] HospitalComment on above:Performed By: #### [id number] #### [facility] [address], [place] [address]Poadew [Moles/Vol]134 mmol/EKav051-896FdpyxxKettering Memorial HospitalComment on above:Performed By: #### [id number] #### [facility] [address], [place] [address]Bksh nitrogen [Mass/Vol]7 mg/dLNormal5-21[facility] HospitalComment on above:Performed By: #### [id number] #### [facility] [address], [place] [address]Hxfn nitrogen/Creatinine [Mass ratio]10 No MwtijYlbpxy95-18 [facility] HospitalComment on above:Performed By: #### [id number] #### [facility] [address] [place] [address]fILZww 36-62-7834pTCV852 mL/min/1.73 m6Hdijea>=59[facility]c Western MarylandComment on above:Performed By: #### [id number] #### [facility] [address] [place], [place] [address]Mhxvsx Medicine Office/Clinic Noteon 71-65-3596Ynrhew Medicine Office/Clinic NoteFami Medicine Office/Clinic Note HPI [...] RESENDEZ FAAFP, Penelope Tony, CHRIS, PED [address] [facility], [place] [address]- Additional Instructions: Patient Education Bradycardia, [...] exam Historical Abdominal pain (more content not included)...[facility] Comment on above:Result Comment: Electronically Signed By: Inez Banegas\.br\Date and Time Signed: 07/08/24 08:54 EDTAmbulatory Visit Summaryon 88-89-7682Aavjwlcxcm Visit SummaryAmbulatory Visit Summary JUSTICE SANNA S :1985 Visit Date:07/07/2024 Ambulatory Visit Instructions Your Care Team Attending Physician - Inez Banegas Primary Care Physician - Penelope CASAS DO, FAAFP This Is Your Medications List Contact prescribing physician if questions or concerns enoxaparin (Lovenox 40 mg/0.4 mL Injection) ergocalciferol (Vitamin D) famotidine (Pepcid 40 mg Tab) fluconazole (Diflucan 150 mg Tab) fluticasone nasal (Flonase 0.05 mg/inh [place]) levothyroxine (levothyroxine 25 mcg (0.025 mg) Tab) [...] With: Penelope CASAS DO, FAAFP Where: [facility] [address], [place] [address]- You Need to Schedule the Following Appointments Follow Up with PRAVEEN RESENDEZ FAAFP, Penelope Tony, FAM, PED When: Where: [address], [facility] [place] [address]- Medications What How Much When [...] Unchanged fluticasone nasal (Flonase 0.05 mg/ inh [place]) 2 Sprays Nasal Inhalation Every day each [...] your care. [facility] Quanton 05-44-5005EMD.beta subunit Qn1 m[IU]/mLNormal1-3[facility] MarylandComment on above:Result Comment: 'F NON < 1 - 3' ' 0.2 - 1 WEEK = 5 TO 50' ' 1 - 2 WEEKS = 50 - 500' ' 2 - 3 WEEKS = 100 - 5000' ' 3 - 4 WEEKS = 500 - 80388' ' 4 - 5 WEEKS = 1000 - 48411' ' 5 - 6 WEEKS = 86741 - 538135' ' 6 - 8 WEEKS = 76329 - 692307' ' 8 - 12 WEEKS = 56674 - 189333'Performed By: #### [id number] #### [facility] [address], [place] [address]NSQVC 2 Mutationson 83-35-7328SSROO InterpretationSee Note [facility] HospitalComment on above:Result Comment: Indication for testing: Determine genetic contribution to hyperhomocysteinemia. 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 This genotype may be associated with a mild, clinically insignificant, decrease in MTHFR enzyme activity. This result has been reviewed and approved by Mraci Byrne M.D. Background Information: Methylenetetrahydrofolate Reductase (MTHFR) 2 Variants Characteristics: Variants in the MTHFR gene may reduce enzyme activity contributing to hyperhomocysteinemia. Although hyperhomocysteinemia was previously reported to be a risk factor for many conditions, especially venous thrombosis and cardiovascular disease, recent meta-analysis casts doubt on whether lifelong moderate homocysteine elevation has an effect on cardiovascular disease. The [employer] Practice Guidelines indicate [...] a contributing factor to hyperhomocysteinemia. Variants Tested: c.665C>T(p.Dmg550Tvo) and c.1286A>C(p.Vmy496Tkx). (legacy names C677T and L9770R, respectively). Clinical Sensitivity: Undefined; hyperhomocysteinemia is caused [...] developed and its performance characteristics determined by [facility]. It has not been cleared or approved by the [place] Food and Drug Administration. This test was performed in a CLIA certified laboratory and is intended for clinical purposes. Counseling and informed consent are recommended for genetic testing. Consent forms are available online. Performed By: [facility] [address] [place] [address] National Stormwater Leader: Yayo Moncada MD, PhD CLIA Number: [id number] Mutation: V7900GUpvkwqonhbTitwurGjybySedgwick County Memorial HospitalMTHFR Mutation: R648JEkhjhbczHwvxlqUxizkSedgwick County Memorial Hospital MTHFR PCR SpecimenWhole BloodSedgwick County Memorial HospitalAnti-nuclear Ab (NASEEM) Reflexon 06-51-5509Uypx-Nuclear Ab (NASEEM), IgG by ELISANot detectedNormal None DetecGood Samaritan Medical CenterComment on above:Result Comment: If suspicion of connective tissue disease is strong and NASEEM EIA is negative, consider testing for NASEEM by IFA ([id number]). No antibodies to Anti-Nuclear Antibodies (NASEEM) detected. The Extractable Nuclear Antigen Antibodies (SWITCHING OPERATOR, Christianson, SSA 52, SSA 60, Scleroderma, Brianna-1 [...] dsDNA, histones, SS-A (Ro), SS-B (La), Christianson, Christianson/SWITCHING OPERATOR, Scl-70, Brianna-1, centromeric proteins, other antigens extracted from the HEp-2 cell nucleus. NASEEM ALEX assays have been reported to have lower sensitivities than NASEEM IFA for systemic autoimmune rheumatic diseases (SARD). Negative results do not necessarily rule out SARD. Performed By: [place] [address] National Stormwater Leader: Yayo Moncada MD, PhD CLIA Number: [id number]-5 (Histidyl-tRNA Synthetase) Ab, IgGon 15-54-5133Tc-1 (Histidyl-tRNA Synthetase) Ab, IgG0 AU/mLNormal0-40[facility] Comment on above:Result Comment: INTERPRETIVE INFORMATION: Brianna-1 Antibody, IgG 29 AU/mL or less.........Negative 30-40 AU/mL..............Equivocal 41 AU/mL or greater......Positive Presence of Brianna-1 (antihistidyl transfer RNA [t-RNA] synthetase) antibody is associated with polymyositis and may also be seen in patients with dermatomyositis. Brianna-1 antibody is associated with pulmonary involvement (interstitial lung disease), Raynaud phenomenon, arthritis, and venetian blind mechanic's hands (implicated in antisynthetase syndrome). Performed By: [place] [address] National Stormwater Leader: Yayo Moncada MD, PhD CLIA Number: [id number] and SSB Abs, IgGon 09-63-0265CBT 52 (Ro) (KELLEN) Ab, IgG1 AU/mLNormal0-40[facility] Medical CenterComment on above:Result Comment: INTERPRETIVE INFORMATION: [...] interstitial lung disease.SSB (La) (KELLEN) Ab, IgG0 AU/mLNormal0-40[facility] Comment on above:Result Comment: INTERPRETIVE [...] (PSS) also have this antibody. Performed By: [facility] [address] [place] [address] National Stormwater Leader: Yayo Moncada MD, PhD CLIA Number: [id number] Antibodies, IgG/IgMon 60-57-3468Sckkreagngn Ab IgG95 GPLCritically high<=14[facility] Medical CenterComment on above: Result Comment: INTERPRETIVE [...] other criteria phospholipid antibody tests. Performed by [facility], [address] [facility] [place] [address] www.[employer], Zhang Bledsoe MD, Lab. Director IA Number: [id number] Ab IgM<10Normal<=12[facility] CenterComment on above:Result Comment: INTERPRETIVE INFORMATION: [...] other criteria phospholipid antibody tests. Performed by [facility], [address] [place] [address] www.[employer], Zhang Bledsoe MD, Lab. Director CLIA Number: [id number]-Cgruf (Smooth Muscle) Antibody, IgAon 65-97-2676Y-Actin Ab, IgA1.8 UnitsNormal0.0-24.9[facility] Medical CenterComment on above: Result Comment: INTERPRETIVE [...] should be confirmed with biopsy. Performed By: [facility] [address] [place] [address] National Stormwater Leader: Yayo Moncada MD, PhD CLIA Number: [id number] Ab, IgG by ELISAon 01-75-6835yyHFT Ab, IgG by ALEX 4 IUNormal0-24[facility] Medical CenterComment on above:Result Comment: INTERPRETIVE INFORMATION: Double-Stranded DNA (dsDNA) Ab IgG ALEX 24 IU or less........Negative 25-30 IU.............Borderline Positive 30-60 IU.............Low Positive 60-200 IU............Positive 201 IU or greater....Strong Positive Positivity for anti-double stranded DNA (anti-dsDNA) IgG antibody is a diagnostic criterion of systemic lupus erythematosus (SLE). Specimens are initially screened by enzyme-linked immunosorbent assay (ALEX). If ordered as reflex ([id number]), positive ALEX results (>24 IU) will be [...] recommendations for testing may be found at [email or web address]. Performed by [facility], [address], [facility] [place] [address] www.[employer], Zhang Bledsoe MD, Lab. Director CLIA Number: [id number]-Uvazddxc Proteinon 38-08-5702PQP [Mass/Vol]mg/LNormal 0.0-5.0[facility] Medical CenterComment on above:Performed By: #### CRP #### [facility] [address] [place] [address] Xrafrzddiaoyi Rateon 81-20-1268Hsazizjziqtqk Rate18 mmNormal0-20 [facility] CenterComment on above:Result Comment: ESR Units mm/Hr Performed By: #### ESR #### [facility] [address] [place] [address] Qcakir Medicine Office/Clinic Noteon 27-78-7945Ivstir Medicine Office/Clinic NoteFapittsfield general hospital Medicine Office/Clinic Note Chief Complaint C/O: [...] bedtime), # 90 tab(s), Refills(s) 4, Pharmacy: [facility], 168, cm, 06/30/24 8:36:00 EST, Height/Length Dosing, 97.2, kg, 06/30/24 8:36:00 EST, Weight Dosing Total time spent preparing the chart, conducting of the encounter with the patient and family and time spent documenting, reviewing, and ordering tests was 25 minutes. Follow-up With When Contact Information PRAVEEN RESENDEZ FAAFP, Penelope Tony, CHRIS, PED In [address] [place] [address]- ([address] (more content not included)...[facility] Comment on above:Result Comment: Electronically Signed By: Penelope CASAS DO, FAAFP\Date and Time Signed: 06/30/24 09:24 ESTRECURRENT VAGINITIS (HTRX)on 92-28-7413LOSTSTMCM [id number] HealthcareATOPOBIUM VAGINAENot detectedNOMS HealthcareBVAB 2,3 (BACTERIAL VAGINOSIS ASSOCIATED BACTERIA 2, 3); MOBILUNCUS [id number] HealthcareBVAB 2,3 (BACTERIAL VAGINOSIS ASSOCIATED BACTERIA 2, 3); MOBILUNCUS SPPNot detectedNOMS HealthcareCANDIDA ALBICANS, PARAPSILOSIS, [id number] HealthcareCANDIDA ALBICANS, PARAPSILOSIS, TROPICALISNot detected NOMS HealthcareCANDIDA [id number] HealthcareCANDIDA GLABRATANot detectedNOMS HealthcareCANDIDA [id number] HealthcareCANDIDA KRUSEINot detectedNOMS HealthcareCHLAMYDIA [id number] HealthcareCHLAMYDIA TRACHOMATISNot detected NOMS HealthcareGARDNERELLA [id number] HealthcareGARDNERELLA VAGINALISNot detectedNOMS HealthcareMEGASPHAERA (TYPES 1, 2)0NOMS HealthcareMEGASPHAERA (TYPES 1, 2)Not detectedNOMS HealthcareMYCOPLASMA [id number] Healthcare MYCOPLASMA GENITALIUMNot detectedNOMS HealthcareNEISSERIA [id number] HealthcareNEISSERIA GONORRHOEAENot detectedNOMS HealthcareTRICHOMONAS VAGINALIS0 NOMS HealthcareTRICHOMONAS VAGINALISNot detectedNOMS HealthcareNOMS Healthcare Urinalysis macro (dipstick) panel (U)on 48-93-6211Dxfuhhctg, UANegativeNegative - 4(70) +++ mg/dLNOMS HealthcareBlood, UANegativeNegative [...] - 12 mg/dLNOMS HealthcareNOMS HealthcareAmbulatory Visit Summaryon 98-00-0605Fompiqrxgm Visit SummaryAmbulatory Visit Summary SANNA RENDON :1985 [...] (Vitamin D) fluticasone nasal (Flonase 0.05 mg/inh [place]) levothyroxine (levothyroxine 25 mcg (0.025 mg) Tab) [...] With: Penelope CASAS DO, FAAFP Where: [facility] [address], [place] [address]- Medications What How Much When Why Instructions New azithromycin (Zithromax 250 mg Tab) 1 Packets By Mouth As Directed Sinusitis Duration: 5 Days Refills: 1 as directed on package labeling Pickup at [facility] 1985 New fluconazole (Diflucan 150 mg Tab) 1 Tablets By Mouth Every 7 days Yeast infection Refills: 1 Pickup at [facility] 1985 Unchanged enoxaparin (Lovenox 40 mg/ 0.4 mL Injection) 40 Milligram Subcutaneous Every 24 hours Contact prescribing physician if questions or concerns Unchanged ergocalciferol (Vitamin D) 2,000 International unit By Mouth Every week Contact prescribing physician if questions or concerns Unchanged fluticasone nasal (Flonase 0.05 mg/ inh [place]) 2 Sprays Nasal Inhalation Every day each [...] physician if questions or concerns Pharmacy Information [facility] 1986: [address] [place], [place] [id number] [phone] Allergies Milk Products (Illness) ciprofloxacin (Numbness and [...] you for choosing us for your care. [facility] Medicine Office/Clinic Noteon 43-63-2970Xbtlph Medicine Office/Cl[facility] NoteM[facility]/Cl[facility] Note Chief Complaint Sinus pressure [...] day(s), # 6 tab(s), Refills(s) 1, Pharmacy: [facility] 1985, 168, cm, 06/09/24 14:03:00 EST, Height/Length Dosing, 98.4, kg, 06/19/24 16:19:00 EST, Weight Dosing Yeast infection (B37.9: Candidiasis, unspecified) Ordered: fluconazole, 150 mg = 1 tab(s), Oral, q7day, # 4 tab(s), Refills(s) 1, Pharmacy: [facility] 1985, 168, cm, 06/09/24 [...] Oral, q7day, 1 refills Flonase 0.05 mg/inh [place], 2 spray(s), Nasal, Daily, 11 refills levothyroxine [...] Patient Refuses influe (more content not included)...NormalKettering Memorial HospitalComment on above:Result Comment: Electronically Signed By: KEVEN YEBOAH, MANDI\.br\Date and Time Signed: 06/19/24 16:37 ESTCBC w/ Auto Diffon 06-12-2024 Basophils/100 WBC (Bld)0.3 %Normal0.0-2.0K[facility]tering Memorial HospitalComment on above:Performed By: #### [id number] #### [facility] [address], [place] [address]Ximqfkzpb/Leukocytes Auto (Bld) [Pure # fraction]0.0 E9/LNormal 0.0-0.2[facility]c Western MarylandComment on above:Performed By: #### [id number] #### [facility] [address], [place] [address]Httngbfkapy (Bld) [#/Vol]0.0 E9/LNormal0.0-0.5[facility]c Western MarylandComment on above:Performed By: #### [id number] #### [facility] [address] [place] [address] 08771Sbhkwwfhbct/100 WBC (Bld)0.3 %Normal0.0-8.0K[facility] Memorial HospitalComment on above:Performed By: #### [id number] #### [facility] [address], [place] [address]Lkteegfhebr distribution width (RBC) [Ratio]14.0 %Normal 10.9-14.2FGrant HospitalComment on above:Performed By: #### [id number] #### [facility] [address] [place] [address] 05014Pfnsxgifws (Bld) [Volume fraction]40.9 %Ibcxxt30.0-46.0[facility] Memorial HospitalComment on above:Performed By: #### [id number] #### [facility] [address] [place] [address] 42577Wdpnwfdpsv (Bld) [Mass/Vol]13.9 g/nPHnqcnm89.0-16.0[facility] HospitalComment on above:Performed By: #### [id number] #### [facility] [address] [place] [address]Nmesldieokh (Bld) [#/Vol]2.8 E9/LNormal1.0-4.0[facility] HospitalComment on above:Performed By: #### [id number] #### [facility] [address] [place] [address] 08251Pfagthjbkce/100 WBC (Bld)24.6 %Khzlgw21.0-50.0[facility] HospitalComment on above:Performed By: #### [id number] #### [facility] [address] [place] [address] 31014YDK (RBC) [Entitic mass]30.7 qyXysbsh61.0-34.0K[facility] Memorial HospitalComment on above:Performed By: #### [id number] #### [facility] [address] [place] [address] 135[address]JONW (RBC) [Mass/Vol]33.9 g/rFMhxbxd64.4-36.0[facility] HospitalComment on above:Performed By: #### [id number] #### [facility] [address], [place] [address]RHL (RBC) [Entitic vol]90.6 xEEvrhhf93.0-100.0[facility] HospitalComment on above:Performed By: #### [id number] #### [facility] [address] [place] [address] 17037Famclbnre (Bld) [#/Vol]0.6 E9/LNormal0.2-1.0[facility] HospitalComment on above:Performed By: #### [id number] #### [facility] [address] [place] [address] 79383Qaygwerqxkn (Bld) [#/Vol]8.0 E9/LHigh2.0-7.5FGrant HospitalComment on above:Performed By: #### [id number] #### [facility] [address] [place] [address] 99698Ualgjmcmppk/100 WBC (Bld)69.6 %Ekjpew33.0-75.0[facility] HospitalComment on above:Performed By: #### [id number] #### [facility] [address] [place] [address] 60993Ragtphew234.0 E9/CJmvpft850.0-500.0[facility] Comment on above:Performed By: #### [id number] #### [facility] [address] [place] [address] 13505Qlmsavqq mean volume (Bld) [Entitic vol]8.2 fLNormal6.4-10.8 [facility] HospitalComment on above:Performed By: #### [id number] #### [facility] [address] [place] [address] 30753DUX (Bld) [#/Vol]4.5 E12/LNormal4.3-5.9[facility] HospitalComment on above:Performed By: #### [id number] #### [facility] [address] [place] [address] 24043XXK corrected for nucl RBC Auto (Bld) [#/Vol]11.5 E9/LHigh 4.0-11.0[facility] Hospitaler [facility] Western MarylandComment on above:Performed By: #### [id number] #### [facility] [address] [place], [place] [address]FFUPWZBMRYEuklaha By: SYSTEM SYSTEM on 03-94-9375Rchrajazg/100 WBC (Bld)0.3 %Normal0.0 - 2.0 %Remisol HemeBasophils/Leukocytes Auto (Bld) [Pure # fraction]0.0 E9/LNormal0.0 - 0.2 E9/LRemisol HemeEosinophils (Bld) [#/Vol]0.0 E9/LNormal0.0 - 0.5 E9/LRemisol HemeEosinophils/100 WBC (Bld)0.3 %Normal0.0 - 8.0 %Remisol HemeErythrocyte distribution width (RBC) [Ratio]14.0 %Qgantd15.9 - 14.2 %Remisol HemeHematocrit (Bld) [Volume fraction]40.9 %Abjpuj20.0 - 46.0 % Remisol HemeHemoglobin (Bld) [Mass/Vol]13.9 g/gRUmilro51.0 - 16.0 gm/dLRemisol HemeLymphocytes (Bld) [#/Vol]2.8 E9/LNormal1.0 - 4.0 E9/LRemisol Heme Lymphocytes/100 WBC (Bld)24.6 %Yynxvc93.0 - 50.0 %Remisol HemeMCH (RBC) [Entitic mass]30.7 neFkmeva78.0 - 34.0 pgRemisol HemeMCHC (RBC) [Mass/Vol]33.9 g/dL Bwgwks85.4 - 36.0 gm/dLRemisol HemeMCV (RBC) [Entitic vol]90.6 zEWztiak19.0 - 100.0 fLRemisol HemeMonocytes (Bld) [#/Vol]0.6 E9/LNormal0.2 - 1.0 E9/LRemisol HemeMonocytes/100 WBC (Bld)5.2 %Normal4.0 - 14.0 %Remisol HemeNeutrophils (Bld) [#/Vol]8.0 E9/LHigh2.0 - 7.5 E9/LRemisol HemeNeutrophils/100 WBC (Bld)69.6 % Ugxjad71.0 - 75.0 %Remisol CssbBnvuogsd716.0 E9/CDgqhoi748.0 - 500.0 E9/LRemisol HemePlatelet mean volume (Bld) [Entitic vol]8.2 fLNormal6.4 - 10.8 fLRemisol HemeRBC (Bld) [#/Vol]4.5 E12/LNormal4.3 - 5.9 E12/LRemisol HemeWBC corrected for nucl RBC Auto (Bld) [#/Vol]11.5 E9/LHigh4.0 - 11.0 E9/LRemisol HemeAmbulatory Visit Summaryon 50-35-2236Mifinypgax Visit SummaryAmbulatory Visit Summary SANNA RENDON :1985 Visit Date:06/09/2024 Ambulatory Visit Instructions Your Diagnosis Antiphospholipid antibody with hypercoagulable state H/O: CVA Gestational diabetes BMI 35.0-35.9,adult Morbid obesity Your Care Team Attending Physician - Penelope CASAS DO, FAAFP Primary Care Physician - Penelope CASAS DO, FAAFP This Is Your Medications List fluticasone nasal (Flonase 0.05 mg/inh [place]) Contact prescribing physician if questions or concerns [...] With: Penelope CASAS DO, FAAFP Where: [facility] [address], [place] [address]- Medications What How Much When Instructions New fluticasone nasal (Flonase 0.05 mg/ inh [place]) 2 Sprays Nasal Inhalation Every day Refills: 11 each nostril Pickup at [facility]/pharmacy #[id number] Unchanged enoxaparin (Lovenox 40 mg/ [...] physician if questions or concerns Pharmacy Information [facility]/pharmacy #[id number]: [address], [place] [id number] [phone] Allergies Milk Products (Illness) ciprofloxacin (Numbness and [...] for choosing us for your care. NormalFisher Upmc Western MarylandBhCG Quanton 74-45-3106OBD.beta subunit Qn2 m[IU]/mLNormal1-3[facility]c Western MarylandComment on above:Result Comment: 'F NON < 1 - 3' ' 0.2 - 1 WEEK = 5 TO 50' ' 1 - 2 WEEKS = 50 - 500' ' 2 - 3 WEEKS = 100 - 5000' ' 3 - 4 WEEKS = 500 - 92239' ' 4 - 5 WEEKS = 1000 - 11288' ' 5 - 6 WEEKS = 40700 - 062206' ' 6 - 8 WEEKS = 65403 - 569788' ' 8 - 12 WEEKS = 64120 - 876383'Performed By: #### [id number] #### [facility] [address], [place] [address]KSXFJQWRDKxmwtgm By: SYSTEM SYSTEM on 36-93-3454WCK Qn1.97 m[IU]/LNormal0.34 - 5.60 mcIU/mLRemisol ChemFamily Medicine Office/Clinic Noteon 89-89-3000Ugwqof Medicine Office/Clinic NoteFami Medicine Office/Clinic Note Chief [...] from inside ear, not outside Moved from [place] Review of Systems PHQ Score Initial Depression [...] antibody with hypercoagulable state (D68.61: Antiphospholipid syndrome) [facility] Department of hematology/oncology following and treating with Lovenox, please see their consultation 05/28/2024. Treats with Lovenox 40 mg subcu every 24 hours 2. H/O: CVA (Z86.79: Personal history of other diseases of the circulatory system) Please see #1. 3. 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 Metformin XR 500 mg tabs [...] In 6 months [address] [place] [address]- [phone] (more content not included)...[facility] Medical CenterComment on above:Result Comment: Electronically Signed By: Penelope CASAS DO, FAAFP\.br\Date and Time Signed: 06/09/24 14:24 ESTTSHon 02-38-8184LIS Qn1.97 m[IU]/LNormal0.34-5.60K[facility] Memorial HospitalComment on above:Performed By: #### [id number] #### [facility] [address] [place], [place] [address]FoYI Quanton 29-66-8242PCJ.beta subunit Qn6 m[IU]/mLHigh1-3 [facility] HospitalComment on above:Result Comment: 'F NON < 1 - 3' ' 0.2 - 1 WEEK = 5 TO 50' ' 1 - 2 WEEKS = 50 - 500' ' 2 - 3 WEEKS = 100 - 5000' ' 3 - 4 WEEKS = 500 - 52374' ' 4 - 5 WEEKS = 1000 - 19845' ' 5 - 6 WEEKS = 02227 - 858990' ' 6 - 8 WEEKS = 03758 - 776955' ' 8 - 12 WEEKS = 47228 - 090290'Performed By: #### [id number] #### [facility] [address] [place], [place] [address]([place])D3 [facility] [place] [address]-jclcppvawtsskb D3 [Mass/Vol] 27.8 ng/mLLow31.0-80.0[facility] CenterComment on above:Order Comment: Specimen Type: BLOOD SPECIMENOrdering Facility: [facility] Address:[address] [place], [place] [address]Wqqjeh Comment: Classification of 25 [place] Vitamin D status: Deficiency/Insufficiency: < or = 30 ng/ml. Sufficiency/Optimal Levels: 31-80 ng/mL Toxicity: > 100 ng/mL. Test performed by chemiluminescent immunoassay.Performed By: #### 1989-3 ####[facility] LABCLIA [id number] [facility]ENTERK [id number] Auto Differential panel (Bld)on 99-41-6647Uihvmsjlp (Bld) [#/Vol]0.03 10*3/uLNormal<0.11CProMedica [facility] on above:Order Comment: Specimen Type: BLOOD SPECIMENOrdering Facility: [facility] Address:[address] [place], [place] [address]Performed By: #### 57398-8 ####[facility] LABCLIA [id number] [place], [place] [address]Snacxfbix/100 WBC (Bld)0.4 % [facility] on above:Order Comment: Specimen Type: BLOOD SPECIMENOrdering Facility: [facility] Address:[address] [place], [place] [address]Performed By: #### 36714-3 ####[facility] LABCLIA [id number] [place] [address] Differential cell count method Nom (Bld)AutoNormalCBarnesville Hospital Comment on above:Order Comment: Specimen Type: BLOOD SPECIMENOrdering Facility: [facility] Address:[address] [place] [address] Performed By: #### 87505-9 ####[facility] LABCLIA [id number] [place], [place] [address]Yzrjpofkwwa (Bld) [#/Vol]0.08 10*3/uLNormal<0.46[facility] [place] [facility] on above:Order Comment: Specimen Type: BLOOD SPECIMENOrdering Facility: [facility] Address:[address] [place], [place] [address]Performed By: #### 94892-1 ####[facility] LABCLIA [id number] [place], [place] [address]Kpnkitoxtvb/100 WBC (Bld)0.9 %NormalEast [place] Regional Hospital on above:Order Comment: Specimen Type: BLOOD SPECIMENOrdering Facility: [facility] Address:[address] [place], [place] [address]Performed By: #### 41985-6 ####[facility] LABIA [id number] [place], [place] [address]Yjlnejnlxjb distribution width (RBC) [Ratio]13.8 %Nrofkf11.5-15.0[facility] [place] [facility] on above: Order Comment: Specimen Type: BLOOD SPECIMENOrdering Facility: [facility] Address:[address] [place], [place] [address]Performed By: #### 55442- 8 ####[facility] LABIA [id number] [place], [place] [address]Yqkvepdlkg (Bld) [Volume fraction]34.0 %Low36.0-46.0 [facility] [place] [facility] on above:Order Comment: Specimen Type: BLOOD SPECIMENOrdering Facility: [facility] Address:[address] [place], [place] [address]Performed By: #### 97733-2 ####[facility] LABIA [id number] [place], [place] [address]Qqilaakjdt (Bld) [Mass/Vol]11.5 g/aURkhldo36.5-15.5CProMedica Toledo Hospital on above: Order Comment: Specimen Type: BLOOD SPECIMENOrdering Facility: [facility] Address:[address] [place], [place] [address]Performed By: #### 22007- 8 ####[facility] LABIA [id number] [place], [place] [address]Iitlfjav granulocytes (Bld) [#/Vol]0.03 10*3/uLNormal <0.10[facility] [place] [facility] on above:Order Comment: Specimen Type: BLOOD SPECIMENOrdering Facility: [facility] Address:[address] [place], [place] [address]Performed By: #### 07253-7 ####[facility]ENTERKENT[facility] LABCLIA [id number] [place], [place] [address]Gbfafptp granulocytes/100 WBC (Bld)0.4 %NormalEast [place] Regional Hospital on above: Order Comment: Specimen Type: BLOOD SPECIMENOrdering Facility: [facility] Address:[address] [place], [place] [address]Performed By: #### 58929- 8 ####[facility] LABCLIA [id number] [place], [place] [address]Csirhwzvzvt (Bld) [#/Vol]2.86 10*3/uLNormal1.00-4.00 [facility] [place] [facility] on above:Order Comment: Specimen Type: BLOOD SPECIMENOrdering Facility: [facility] Address:[address] [place], [place] [address]Performed By: #### 61169-9 ####[facility] LABIA [id number] [place], [place] [address]Nbvoiwjcnks/100 WBC (Bld)33.4 %NormalEast [place] Regional Hospital on above:Order Comment: Specimen Type: BLOOD SPECIMENOrdering Facility: [facility] Address:[address] [place], [place] [address]Performed By: #### 64221-3 ####[facility] LABCLIA [id number] [place], [place] [address]RIV (RBC) [Entitic mass]30.8 vtGqigfi30.0-34.0[facility] [place] [facility] on above:Order Comment: Specimen Type: BLOOD SPECIMENOrdering Facility: [facility] Address:[address] [place], [place] [address]Performed By: #### 30426-0 ####[facility] LABCLIA [id number] [place], [place] [address]HDTI (RBC) [Mass/Vol]33.8 g/fKOqjqrf73.5-36.0[facility] [place] [facility] on above: Order Comment: Specimen Type: BLOOD SPECIMENOrdering Facility: [facility] Address:[address] [place], [place] [address]Performed By: #### 45670- 8 ####[facility] LABCLIA [id number] [place], [place] [address]CNU (RBC) [Entitic vol]91.2 zADkygab64.0-100.0[facility] [place] [facility] on above:Order Comment: Specimen Type: BLOOD SPECIMENOrdering Facility: [facility] Address:[address] [place], [place] [address]Performed By: #### 37784-1 ####[facility] LABIA [id number] [place], [place] [address]Iohenzluk (Bld) [#/Vol]0.66 10*3/uLNormal<0.87[facility] [place] [facility] on above:Order Comment: Specimen Type: BLOOD SPECIMENOrdering Facility: [facility] Address:[address] [place], [place] [address]Performed By: #### 74379- 8 ####[facility] LABIA [id number] [place], [place] [address]Wzupxyyau/100 WBC (Bld)7.7 %NormalEast [place] Regional Hospital on above:Order Comment: Specimen Type: BLOOD SPECIMENOrdering Facility: [facility] Address:[address] [place], [place] [address]Performed By: #### 05540-3 ####[facility] LABIA [id number] [place], [place] [address]Heejtkcitzd (Bld) [#/Vol]4.90 10*3/uLNormal1.45-7.50[facility] [place] [facility] on above:Order Comment: Specimen Type: BLOOD SPECIMENOrdering Facility: [facility] Address:[address] [place], [place] [address]Performed By: #### 86345-9 ####[facility] LABCLIA [id number] [place], [place] [address]Jkinsnktjhb/100 WBC (Bld)57.2 %NormalEast [place] Regional Hospital on above:Order Comment: Specimen Type: BLOOD SPECIMENOrdering Facility: [facility] Address:[address] [place], [place] [address]Performed By: #### 79794-4 ####[facility] LABCLIA [id number] [place], [place] [address]Heytbsckd RBC (Bld) [#/Vol] 10*3/uLNormal<0.01[facility] [place] [facility] on above:Order Comment: Specimen Type: BLOOD SPECIMENOrdering Facility: [facility] Address:[address] [place], [place] [address]Performed By: #### 80782-4 ####[facility] LABCLIA [id number] [place], [place] [address]Mzeeopixt RBC/100 WBC (Bld) [Ratio]0.0 /100 WBCNormal [facility] [place] [facility] on above:Order Comment: Specimen Type: BLOOD SPECIMENOrdering Facility: [facility] Address:[address] [place], [place] [address]Performed By: #### 29417-9 ####[facility] LABIA [id number] [place], [place] [address]Xxfrjkdr mean volume (Bld) [Entitic vol]9.6 fLNormal9.0-12.7CProMedica [facility]edo [facility] on above:Order Comment: Specimen Type: BLOOD SPECIMENOrdering Facility: [facility] Address:[address] [place] [address] Performed By: #### 40435-8 ####[facility] LABIA [id number] [place], [place] [address]Nrtbejjnb (Bld) [#/Vol]345 10*3/zMIdkuva898-015HhenwpxjtEast [place] Regional Hospital on above:Order Comment: Specimen Type: BLOOD SPECIMENOrdering Facility: [facility] Address:[address] [place] [address]Mhhwfkluh By: #### 57474-4 ####[facility]ENT[facility] LABIA [id number] [place], [place] [address]VTL (Bld) [#/Vol]3.73 10*6/uLLow3.90-5.20[facility] [place] [facility] on above:Order Comment: Specimen Type: BLOOD SPECIMENOrdering Facility: [facility] Address:[address] [place] [address]Hdegbjljb By: #### 76660-0 ####[facility]ILK[facility] LABIA [id number] [place], [place] [address]ZFF (Bld) [#/Vol]8.56 10*3/uL Normal3.70-11.00[facility] [place] [facility] on above:Order Comment: Specimen Type: BLOOD SPECIMENOrdering Facility: [facility] Address:[address] [place] [address]Pgwbgalbp By: #### 72979-9 ####[facility] CENTERKENTON KRES[facility] INSTITUTEIA [id number] [place], [place] [address]PIDUAUwx [id number] (SP) Office (HEMASA) SANNA RENDON ([id number]) 1985 F Date Time Provider Department 05/28/24 1:00 PM KRISTOFER CALIX During your visit today, we recorded the following information about you: Temperature Pulse Respiration Blood pressure 97.6 degrees 72/minute 16/minute 123/83 Weight Height 98.5 kg 1.677 m Kristofer Calix MD 05/29/2024 9:13 AM Signed NAME: Sanna Rendon CLINIC NO.: [id number] DATE OF SERVICE: May 28, 2024 (Levon) [...] later in 2018. These were found in [place], [place]. I don't have access to these [...] target-like rash shortly before presenting to [facility] in 2016 with headaches and was [...] soon. When she had a stroke in [place], she had symptoms up to a month [...] having trouble losing weight. (more content not included)...NormalUpper Valley Medical CenterCNPNon 05-28-2024 CNPNTelephone (NCCAP) JUSTICE,KATIE ([id number]) 1985 F Date Time Provider Department 05/28/24 [...] 05/28/2024 Encounter Status:Closed by TAYLOR ESCUDERO on 05/28/24NormalClevelOur Community HospitalComprehensive metabolic 2000 panelon 65-77-6679Kzczrel [Mass/Vol]4.4 g/dLNormal3.9-4.9CBarnesville HospitalComup health system on above:Order Comment: Specimen Type: BLOOD SPECIMENOrdering Facility: [facility] Address:[address] [place], [place] [address]Laoaxwule By: #### 07583-8 ####[facility]ENTERKENTON [facility] LABCLIA [id number] [place], [place] [address]WEL [Catalytic activity/Vol]59 U/DJczzdg03-374NoadyrqyqEast [place] [facility] Hospital on above:Order Comment: Specimen Type: BLOOD SPECIMENOrdering Facility: [facility] Address:[address] [place], [place] [address]Performed By: #### 56673-7 ####[facility] LABCLIA [id number] BHARATDOERNBECHER CHILDREN'S HOSPITALSEABRAZO [place] [address]GEG [Catalytic activity/Vol]12 U/LNormal7-38[facility] [place] [facility] on above:Order Comment: Specimen Type: BLOOD SPECIMENOrdering Facility: [facility] Address:[address] [place], [place] [address]Performed By: #### 17014- 8 ####[facility] LABCLIA [id number] [facility] [place], [place] [address]Rjqpd gap [Moles/Vol]10 mmol/LNormal8-15[facility] [place] [facility] on above:Order Comment: Specimen Type: BLOOD SPECIMENOrdering Facility: [facility] Address:[address] [place], [place] [address]Performed By: #### 51732-4 ####[facility] LABCLIA [id number] [facility] [place]ENTERSE[place], [place] [address]SSE [Catalytic activity/Vol]11 U/OIty01-58PsedkpxqsEast [place] Regional Hospital on above:Order Comment: Specimen Type: BLOOD SPECIMENOrdering Facility: [facility] Address:[address] [place], [place] [address]Performed By: #### [id number] ####[facility] LABCLIA [id number] [place] [address] Bilirubin [Mass/Vol]0.2 mg/dLNormal0.2-1.3CProMedica [facility] on above:Order Comment: Specimen Type: BLOOD SPECIMENOrdering Facility: [facility] Address:[address] [place], [place] [address]Performed By: #### [id number] ####[facility] LABCLIA [id number] [place], [place] [address]Isepsqz [Mass/Vol]9.7 mg/dLNormal8.5-10.2CProMedica [facility] on above:Order Comment: Specimen Type: BLOOD SPECIMENOrdering Facility: [facility] Address:[address] [place], [place] [address]Performed By: #### [id number] ####[facility] LABCLIA [id number] [place], [place] [address]Guqntrss [Moles/Vol]99 mmol/QMcsvkf36-366OrtaqofxbEast [place] Regional Hospital on above:Order Comment: Specimen Type: BLOOD SPECIMENOrdering Facility: [facility] Address:[address] [place], [place] [address]Performed By: #### 57724- 8 ####[facility] LABCLIA [id number] [place], [place] [address]MY3 [Moles/Vol]25 mmol/UNelfpr26-89ZbpddehhlEast [place] Regional Hospital on above:Order Comment: Specimen Type: BLOOD SPECIMENOrdering Facility: [facility] Address:[address] [place], [place] [address]Performed By: #### 00567-1 ####[facility] LABCLIA [id number] [place], [place] [address]Ismgsepitd [Mass/Vol]0.71 mg/dL Normal0.58-0.96[facility] on above:Order Comment: Specimen Type: BLOOD SPECIMENOrdering Facility: [facility] Address:[address] [place], [place] [address]Performed By: #### 13534-6 ####[facility] LABCLIA [id number] [place], [place] [address]Fjoikfipzg and Glomerular filtration rate.predicted panel (S/P/Bld)112 mL/min/1.73m???Normal>=60[facility] on above:Order Comment: Specimen Type: BLOOD SPECIMENOrdering Facility: [facility] Address:[address] [place], [place] [address]Qlywfi Comment: Estimated Glomerular Filtration Rate (eGFR) is [...] not accurately reflect actual GFR.Performed By: #### 91736-8 ####[facility] LABCLIA [id number] [place], [place] [address]Dxepzhg [Mass/Vol]79 mg/qNRrclnj03-78PvxthtxqoEast [place] Regional Hospital on above:Order Comment: Specimen Type: BLOOD SPECIMENOrdering Facility: [facility] Address:[address] [place], [place] [address]Result Comment: The [place] Diabetes Association (ADA) provides guidance for cutoff [...] Standards of Medical Care in Diabetes 2016, Australian Diabetes Association. Diabetes Care. 2016.39(Suppl 1).Performed By: #### 60647-9 ####[facility] LABCLIA [id number] [place], [place] [address]Ahypqqdkl [Moles/Vol]4.0 mmol/LNormal3.7-5.1CPro[facility]ica [facility] on above:Order Comment: Specimen Type: BLOOD SPECIMENOrdering Facility: [facility] Address:[address] [place] [place] [id number] By: #### 85537-5 ####[facility] LABCL[facility] [id number] [place], [place] [address]Umfwxor [Mass/Vol]7.1 g/dLNormal6.3-8.0[facility] on above:Order Comment: Specimen Type: BLOOD SPECIMENOrdering Facility: [facility] Address:[address] [place], [place] [address]Performed By: #### 19011- 8 ####[facility] LABCL[facility] [id number] [place], [place] [address]Lpjsjb [Moles/Vol]134 mmol/HJry253-707CxfexubmpEast [place] Regional Hospital on above:Order Comment: Specimen Type: BLOOD SPECIMENOrdering Facility: [facility] Address:[address] [place], [place] [address]Performed By: #### 43378-3 ####[facility] LAB[facility] [id number] [place], [place] [address]Pkcf nitrogen [Mass/Vol]8 mg/dL Normal7-21[facility] on above:Order Comment: Specimen Type: BLOOD SPECIMENOrdering Facility: [facility] Address:[address] [place], [place] [address]Performed By: #### 61813-1 ####[facility] LAB[facility] [id number] [place] [address] Ferritin SerPl-mCncon 34-34-6643Uvdkremc [Mass/Vol]73.8 ng/jUHjniyn10.7-205.1 [facility] on above:Order Comment: Specimen Type: BLOOD SPECIMENOrdering Facility: [facility] Address:[address] [place], [place] [address]Performed By: #### 28035-6, 2276-4, 3016-3 ####[facility] LABCLIA [id number] [place] [address] [address] [place] OF AMERICAFolate SerPl-mCncon 63-23-7674Bzargl [Mass/Vol] ng/mLNormal>4.7[facility] ClevelandComment on above:Order Comment: Specimen Type: BLOOD SPECIMENOrdering Facility: [facility] Address:[address] [place], [place] [address]Result Comment: A result of > 20 ng/mL is not necessarily indicative of a pathologic or treatable condition: it reflects a limitation of the test methodology. Assay reference range: 4.8 to 24.2 ng/mL. Suitable for detection of folate deficiency. Reference: Folate III (Folate III) [package insert V 1.0 Guatemalan]. Wilian Vanderdroid, [place], [place]: February 2015.Performed By: #### 2132-9, 2284-8 ####[facility] LABIA [id number] [place] [address] [place] OF AMERICAIron and Iron binding capacity panelon 05-28-2024 Iron [Mass/Vol]68 ug/cRWutzmk29-363MjvwvjjebEast [facility] Regional Hospital on above: Order Comment: Specimen Type: BLOOD SPECIMENOrdering Facility: [facility] Address:[address] [place], [place] [address]Performed By: #### 31263- 8, 2276-4, 3016-3 ####[facility] LABIA [id number] [place] [address] [place] OF AMERICAIron binding capacity [Mass/Vol]367 ug/rSDjsbor825-351QwihljvuqEast [place] Regional Hospital on above: Order Comment: Specimen Type: BLOOD SPECIMENOrdering Facility: [facility] Address:[address] [place], [place] [address]Performed By: #### 68334- 8, 2276-4, 3016-3 ####[facility] LABIA [id number] [place] [address] [facility] OF AMERICAIron/TIBC [Molar ratio]18.5 %Dhqqqu14.0-57.0[facility] on above:Order Comment: Specimen Type: BLOOD SPECIMENOrdering Facility: [facility] Address:[address] [place], [place] [address]Performed By: #### 76462- 8, 2276-4, 3016-3 ####[facility] LABCLIA [id number] [place] [address] [place] [facility] CENTERTSH SerPl-aCncon 34-93-7697SWL Qn2.940 m[IU]/LNormal0.270-4.200[facility] on above:Order Comment: Specimen Type: BLOOD SPECIMENOrdering Facility: [facility] Address:[address] [place], [place] [address]Result Comment: If the patient is , TSH reference range varies by gestational period: First Trimester (weeks 9-12): 0.180-2.990 mIU/L Second Trimester: 0.110-3.980 mIU/L Third Trimester: 0.480-4.710 mIU/L Danny Varela et al. A Practical Approach for the Verifications and Determination of Site- and Trimester-Specific Reference Intervals for Thyroid Function tests in . Thyroid, 2019:29:3:412-420.Saeed Pan, et al. 2017 Guidelines of the [place] Thyroid Association for the Diagnosis and Management of Thyroid Disease during and the . Thyroid, 2017:27:3:315-389. Performed By: #### 71853-0, 6-4, 3016-3 ####[facility] LABIA [id number] [place] [address] [place] AMERICAVit B12 SerPl-mCncon 60-67-1467Wbkmgvsdj (Vitamin B12) [Mass/Vol]487 pg/fVNafcvm073-5231KowdhjdqgProMedica Toledo Hospital on above:Order Comment: Specimen Type: BLOOD SPECIMENOrdering Facility: [facility] Address:[address] [place], [place] [address]Performed By: #### 2132-9, 2284-8 ####[facility] LABCLIA [id number] [place] [address] [place] AMERICABhCG Quanton 16-57-3462NPZ.beta subunit Qn101 m[IU]/mLHigh1-3Fisher Marcus Medical CenterComment on above:Result Comment: 'F NON < 1 - 3' ' 0.2 - 1 WEEK = 5 TO 50' ' 1 - 2 WEEKS = 50 - 500' ' 2 - 3 WEEKS = 100 - 5000' ' 3 - 4 WEEKS = 500 - 11537' ' 4 - 5 WEEKS = 1000 - 67456' ' 5 - 6 WEEKS = 94062 - 343610' ' 6 - 8 WEEKS = 80846 - 778908' ' 8 - 12 WEEKS = 27948 - 815926'Performed By: #### [id number] #### [facility] [address] [place], [place] [address]YUKGCF V LEIDEN MUTATIONon 84-74-9906SBB FACTOR V LEIDEN MUTATIONComment.Madison Medical CenterComment on above:Result: c.1601G>A (p.Cfx161Agd) - Not Detected This result is not associated with an increased risk for venous thromboembolism. See Additional Clinical Information and Comments. Additional Clinical Information: Venous thromboembolism is a multifactorial disease influenced by genetic, environmental, and circumstantial risk factors. The c.1601G>A (p. Lnc493Deh) variant in the F5 gene, commonly referred [...] c.*97G>A variant and Factor V Leiden (PMID: 94590456). Additional risk factors include but are not [...] health care providers to discuss results at [phone] (5269). Test Details: Variant Analyzed: c.1601G>A (p. Hfc409Cqd), referred to as Factor V Leiden Methods/Limitations: [...] developed and its performance characteristics determined by [employer]. It has not been cleared or approved by the Food and Drug Administration. References: Jomar Guzman, Loren BLANDON, Thiago R, Solo WW, Jose JH; ACMG Professional Practice and Guidelines Committee. Addendum: Australian College of Medical Genetics consensus statement on factor V Leiden mutation testing. Nisha Med. 2020Jul 02. doi: 10.1038/x90089-902-54077-t. PMID: 57536749. Naina POWERS. Factor V Leiden Thrombophilia. 1998September 10 (Updated 2017May 03). In: Emeterio MP, Radha HH, Clayton RA, et al., editors. Cassie(R) (Internet). Rake ([place]): [facility]; 6110-4964. Available from: https://www.ncbi.nlm.nih.gov/books/XOF2426/ Hudson Guzman, Loren BLANDON, Trent X, Margarito B, Jo-Ann EB, Lena P, Rhiannon CS; ACMG Laboratory Process Safety Management Engineer Committee. Venous thromboembolism laboratory testing (factor V Leiden and factor II c.*97G>A), 2018 update: a technical standard of the Australian College of Medical Genetics and Genomics (ACMG). Nisha Med. 2018 Mar;20(12):5293-7069. doi: 10.1038/y35646-485-5599-v. Epub 2017Feb 01. PMID: 97665098. [facility] REVIEWED BYComment.NOMS HealthcareComment on above:Technical Component performed at [facility] Professional Component performed by: ODEC Rosa Isela Lee, Ph.D., [facility] Director, Molecular Genetics [address] [facility] Performed at: - [facility] [address] [facility], [facility], [place] [address] Ship'S Captain: Kolton [facility], Phone: [phone] CLINSt. Francis Hospitalon 31-84-0742ZKUDMzqwtbndy (HEMASA) SANNA RENDON ([id number]) 1985 F Date Time Provider Department 05/14/24 [...] for deficiency. She is aware if her cord tire builder or PCP request any additional testing, we [...] Date Reviewed: 04/28/2024 Reviewed by: Katherine Negrete APRN.POWER WASHER - Fully Assessed Reason for Visit: Patient [...] 08/01/2022 Encounter Status:Closed by RACHAEL JOHNSON on 05/14/24[facility] MISCELLANEOUS TESTon 20-27-0554LPVQEXUZEMYOC TESTCOMMENT.NOMS HealthcareComment on above:Test Ordered: [id number] , ID Ab Cytomegalovirus (CMV) Ab, IgG [...] 0.9 - 1.1 Positive >1.1 Performed at: [address] [id number] Ship'S Captain: Dusty Miles PhD, Phone: [phone] Performed at: [address] [id number] Ship'S Captain: China Ching MD, Phone: [phone] , Infectious Disease Antibody Profile CLINISYNCNOFL HealthcareNo Panel Informationon 89-00-1644EUXQTCVOCDTUG HealthcarePROTEIN C-FUNCTIONALon 27-93-5393FSKWHGM C-SLYNPGHODU241 %73 - 180 % NOMS HealthcareComment on above:Performed at: [address] [id number] Ship'S Captain: China Ching MD, Phone: [phone] PROTEIN S-ANTIGENon 09-96-0717RVANBES S, UPAH968 %61 - 136 %[facility] PROTEIN S, TOTAL96 %60 - 150 %NOMS HealthcareComment on above:This test was developed and its performance characteristics determined by [facility]. It has not been cleared or approved by the Food and Drug Administration. [facility] ANTITHROMBIN ACTIVITYon 78-35-2167Wypysozcdasdok and review of laboratory resultsAbnormalNOMissouri Southern HealthcareTB ANTITHROMBIN OWUUWUMV400 %Lgkwbjdl93 - 135 % NOMS HealthcareComment on above:An elevated antithrombin activity is of no known clinical significance. Direct Xa inhibitor anticoagulants such as rivaroxaban, apixaban and edoxaban will lead to spuriously elevated antithrombin activity levels possibly masking a deficiency. Performed at: [address] [id number] Ship'S Captain: China Ching MD, Phone: [phone] ALL IMMUNOGLOBULIN Koffi 26-40-5313RNH IMMUNOGLOBULIN G, QN913 mg/dL586 - 1602 mg/dLNOFL HealthcareComment on above:Performed at: [address] [id number] Ship'S Captain: Dusty Miles PhD, Phone: [phone] ALL IMMUNOGLOBULIN Mon 82-13-8371DXK IMMUNOGLOBULIN M, Q177 mg/dL26 - 217 mg/dL NOMS HealthcareComment on above:Performed at: [address] [id number] Ship'S Captain: Dusty Miles PhD, Phone: [phone] [facility] HOMOCYSTEINEon 07-72-6743TKYJHWGT(E)INE5.8 umol/L0.0 - 14.5 umol/LNOMS HealthcareNo Panel Informationon 74-77-5630WTGWZMJELGQWZ HealthcareALL CBC WITH AUTO DIFFon 60-40-7178SSVIHTXFI ABSOLUTE ZLUR8TIVU HealthcareBasophils/100 WBC (Bld)0.2 %0.2 - 2.0 %NOMS HealthcareEosinophils/100 WBC (Bld)0.7 %Low0.9 - 7.0 % NOM HealthcareErythrocyte distribution width (RBC) [Ratio]13 %11.0 - 15.0 %NOMS HealthcareHematocrit (Bld) [Volume fraction]35.6 %Low36.0 - 48.0 %NOM HealthcareHemoglobin (Bld) [Mass/Vol]12.3 g/dL12.0 - 16.0 g/dLNOMissouri Southern Healthcare IMMATURE GRANULOCYTES ABS AUTO0.04HighNOMS HealthcareImmature granulocytes/100 WBC (Bld)0.4 %0.0 - 0.5 %[facility] HealthcareInterpretation and review of laboratory resultsAbnormalMadison Medical CenterLYMPHOCYTES ABSOLUTE AUTO2.5NOMS [facility] Lymphocytes/100 WBC (Bld)26.1 %20.5 - 60.0 %[facility] HospitalH (RBC) [Entitic mass]31 pg26.7 - 34.0 pgWashington County Memorial HospitalHC (RBC) [Mass/Vol]34.6 g/dL29.9 - 35.2 g/dLWashington County Memorial HospitalV (RBC) [Entitic vol]89.7 fL81.0 - 99.0 fLMadison Medical Center MONOCYTES ABSOLUTE AUTO0.6NOFL HealthcareMonocytes/100 WBC (Bld)6 %1.7 - 12.0 % [facility] Medical CenterNEUTROPHILS ABSOLUTE AUTO6.3NOMS HealthcareNeutrophils/100 WBC (Bld)66.6 %43.0 - 75.0 %Madison Medical CenterPlatelet mean volume (Bld) [Entitic vol] 9.9 fL9.5 - 13.5 fLNOMissouri Southern HealthcareTBH EO #0.1NOMS HealthcareTB DXM061XLWX [facility] EastTB RBC3.97LowNOMS [facility] EastTB WBC9.4NOMissouri Southern HealthcareCLINISYNCNSaint John's Health SystemCCF APTTon 81-00-4758bVEV Coag (Bld) [Time]28.5 sNSaint John's Health SystemLon 05-10-2024 Specimen: [id number] Received: 05/12/24 Status: BALDOMERO Andrade Num: [id number] Spec Type: Surgical Subm Dr: Wilton Herrmann Tissues: A Placenta - Other than 3rd Trimester (14 WK PLACENTA) Procedures: HE/3, Gross/Micro L4 Age/ Patient Sex Location Account Attending Physician Sanna Rendon 38/F LABELL [id number] Wilton Herrmann SPEC NUM: [id number] RECD: 05/12/24-1209 STATUS: ABLDOMERO ANDRADE NUM: [id number] AMARILYS: 05/10/24- SUBM DR: Wilton Herrmann ENTERED: 05/12/24-[address] [facility] [address]: Piyush,Lab SPEC TYPE: Surgical DEPT: [facility] ENTERED BY: [id number] RECV BY: [id number] ORDERED: HE/3, Gross/Micro L4 ORDERED: HE/3, Gross/Micro [...] BS25-17 Received: 05/12/24 Status: BALDOMERO Andrade Num: [id number] Spec Type: Surgical Subm Dr: Wilton Herrmann Tissues: A Placenta - Other than 3rd Trimester (14 WK PLACENTA) Procedures: /3, Gross/Micro L4 Patient: Sanna Rendon [id number] (Continued) Specimen: [id number] Received: 05/12/24 (Continued) Gross Description (Continued) Signed (signature on file) Vivi Hill MD 05/13/24 1605 Specimen: [id number] Received: 05/12/24 Status: BALDOMERO Andrade Num: [id number] Spec Type: Surgical Subm Dr: Wilton Herrmann Tissues: A Placenta - Other than 3rd Trimester (14 WK PLACENTA) Procedures: HE/3, Gross/Micro L4 Patient: Sanna Rendon [id number] (Continued) Specimen: [id number] Received: 05/12/24 (Continued) Gross [...] and uniform. Cassettes: A1 Rolled membrane A2-A3 Radiographer sections of placenta (3, ss, BS25-17 A) JG . CPT Codes 74411 Specimen: [id number] Received: 05/12/24 Status: BALDOMERO Andrade Num: [id number] Spec Type: Surgical Subm Dr: Wilton Herrmann Tissues: A Placenta - Other than 3rd Trimester (14 WK PLACENTA) Procedures: DEION/Ramone, Dann/Rah L4 Patient: Sanna Rendon [id number] (Continued) Signed (signature on file) Vivi Hill MD 05/13/[address] [place] [address] Physician GroupMHPT FIBRINOGENon 05-10-2024 KALHBNPCPZ950 mg/dL200 - 400 mg/dLNOFL HealthcareNo Panel Informationon 61-50-4296LPXUJSIAAQUCR HealthcareSRMCOH PROTHROMBIN TIME INR W/O COUMon 26-25-7371UZ Coag (PPP) [Time]10.3 sNOMS [facility] EastTB INR0.97NOMissouri Southern Healthcare Comment on above:DESIRED INR: 2.0-3.0 CONDITIONS NOT LISTED BELOW 2.5-3.5 FOR PROSTHETIC HEART VALVE REPLACEMENT 2.5-3.5 RECURRENT THROMBOSIS US PELVISon 42-07-7635[place]tg[place] [address] Ultrasound Report Signed Patient: SANNA RENDON MR#: [id number] : 1985 Acct:[id number] Age/Sex: 38 / F ADM Date: Loc: [facility] 258-[address]: Wilton Herrmann D.O. Ordering Physician: Wilton Herrmann D.O. Date of Service: 05/10/24 Procedure(s): US pelvis Accession Number(s): [id number] cc: Wilton Herrmann D.O.; PENELOPE CASAS [place] [address] Patient Name: SANAN RENDON MRN: [facility]:[id number] date: 1985 Sex: F Assigned Patient Location: [facility] Current Patient Location: [facility] Accession/Order Number: [id number] Exam Date: 05/10/2024 14:36 Report Date: 05/10/2024 [...] M.D. Signed By: 05/10/241603 DD/ 01 TD/TT: Technical Sales Engineer:Pacheco Vergara, - 05/10/2024 [place] [address] Ultrasound Report Signed Patient: SANNA RENDON MR#: [id number] : 1985 Acct:[id number] Age/Sex: 38 / F ADM Date: Loc: [facility] 258-[address]: Wilton Herrmann D.O. Ordering Physician: Wilton Herrmann D.O. Date of Service: 05/10/24 Procedure(s): US pelvis Accession Number(s): [id number] cc: Wilton Herrmann D.O.; PENELOPE CASAS [place] [id number] Patient Name: SANNA RENDON MRN: [id number] date: 1985 Sex: F Assigned Patient Location: [facility] Current Patient Location: [facility] Accession/Order Number: [id number] Exam Date: 05/10/2024 14:36 Report Date: 05/10/2024 [...] M.D. Signed By: 05/10/241603 DD/ 01 TD/TT: Technical Sales Engineer: SHILOH HealthcareRadiology Study observation (narrative)NOMS HealthcareUS PELVIS Ordered By: Radiologist Radiology on 05-22-6170VRPN Healthcare Work Phone: US for pregnancyon 88-04-9178Btu [place] [address] Ultrasound Report Signed Patient: SANNA RENDON MR#: [id number] : 1985 Acct:[id number] Age/Sex: 38 / F ADM Date: Loc: [facility] 258-[address]: Wilton Herrmann D.O. Ordering Physician: Wilton Herrmann D.O. Date of Service: 05/10/24 Procedure(s): US OB limited Accession Number(s): [id number] cc: Wilton Herrmann D.O.; PENELOPE CASAS [place] [address] Patient Name: SANNA RENDON MRN: [id number] date: 1985 Sex: F Assigned Patient Location: [facility] Current Patient Location: [place] Accession/Order Number: [id number] Exam Date: 05/10/2024 08:30 Report Date: 05/10/2024 [...] M.D. Signed By: 05/10/24928 DD/ 5 TD/TT: Technical Sales Engineer:ELVERadiology, Radiologist, - 05/10/2024 [place] [address] Ultrasound Report Signed Patient: SANNA RENDON MR#: [id number] : 1985 Acct:[id number] Age/Sex: 38 / F ADM Date: Loc: [facility] 258-[address]: Wilton Herrmann D.O. Ordering Physician: Wilton Herrmann D.O. Date of Service: 05/10/24 Procedure(s): US OB limited Accession Number(s): [id number] cc: Wilton Herrmann D.O.; PENELOPE CASAS [place] [address] Patient Name: SANNA RENDON MRN: [facility]:[id number] date: 1985 Sex: F Assigned Patient Location: [facility] Current Patient Location: [place] Accession/Order Number: [id number] Exam Date: 05/10/2024 08:30 Report Date: 05/10/2024 [...] M.D. Signed By: 05/10/24928 DD/ 5 TD/TT: Technical Sales Engineer: SHILOH HealthcareRadiology Study observation (narrative)SHILOH HealthcareUS for pregnancyOrdered By: Radiologist Radiology on 01-67-7946ADXS Healthcare Work Phone: us OB TRANSVAGINALon 06-00-5013FI OB TRANSVAGINALTITLE OF EXAM: OB Ultrasound: REASON [...] period was 01/29/2024.Urinalysis macro (dipstick) panel (U)on 39-85-6992Rjkznwtop, UANegativeNegative - 4(70) +++ mg/dLNOMS Healthcare Blood, UANegativeNegative - 50 Max/mcLNOFL HealthcareClarity, UAClearNOFL HealthcareColor, UAYellowNOFL HealthcareGlucose, UANegativeNegative - 2000(110) ++++ mg/dLNOFL HealthcareInterpretation and review of laboratory resultsNormal NOMS HealthcareKetones, UANegativeNegative - 160(16) ++++ mg/dLNOFL Healthcare Leukocytes, UANegativeNegative - 500+++ John/mcLNOFL HealthcareNitrite, UA NegativeNegative - PositiveNOMS HealthcarepH, UA65 - 9NOMS HealthcareProtein, UA NegativeNegative - 2000(20) ++++ mg/dLNOMS HealthcareSpec Grav, UA1.011 - 1.03 NOMS HealthcareUrobilinogen, UA0.20.2 - 12 mg/dLNOMS HealthcareNOFL Healthcare BOX TESTon 30-16-2334TWH TEST SENT OUTYNOMS CvooykvgnpTTZ9XYMDHEBUR Healthcare QPD783/14/24NOMS HealthcareUNITY BOX CLINISYNCNOMS HealthcareTBH DRUG SCREEN RAPID (URINE)on 05-16-9096EJJUCIBMPVA SCREEN URINENegativeNEGATIVENOMS HealthcareBARBITURATES SCREEN URINENegative NEGATIVENOMS HealthcareBENZODIAZEPINES [...] TRICYCLIC ANTIDEPRESSANT URINENegativeNEGATIVENOMS HealthcareCLINISYNCNOMS HealthcareUS OB TRANSVAGINALon 19-74-0800BxpSanta [place] [address] Ultrasound Report Signed Patient: Sanna Rendon MR#: [id number] : 1985 Acct:[id number] Age/Sex: 38 / F ADM Date: 04/04/24 Loc: [facility] Attending Dr: Wilton Herrmann D.O. Ordering Physician: Wilton Herrmann D.O. Date of Service: 04/04/24 Procedure(s): US OB transvaginal Accession Number(s): [id number] cc: Wilton Herrmann D.O.; PENELOPE CASAS [place] [phone] Patient Name: SANNA RENDON MRN: [facility]:[id number] date: 1985 Sex: F Assigned Patient Location: [facility] Current Patient Location: Accession/Order Number: [id number] Exam Date: 04/04/2024 09:43 Report Date: 04/05/2024 [...] M.D. Signed By: 04/05/24441 DD/ 8 TD/TT: Technical Sales Engineer:MANUELHRadiology, Radiologist, MD - 04/05/2024 [place] [address] Ultrasound Report Signed Patient: Sanna Rendon MR#: [id number] : 1985 Acct:[id number] Age/Sex: 38 / F ADM Date: 04/04/24 Loc: [facility] Attending Dr: Wilton Herrmann D.O. Ordering Physician: Wilton Herrmann D.O. Date of Service: 04/04/24 Procedure(s): US OB transvaginal Accession Number(s): [id number] cc: Wilton Herrmann D.O.; PENELOPE CASAS [place] [address] Patient Name: SANNA RENDON MRN: [id number]:[id number] date: 1985 Sex: F Assigned Patient Location: [facility] Current Patient Location: Accession/Order Number: [id number] Exam Date: 04/04/2024 09:43 Report Date: 04/05/2024 [...] M.D. Signed By: 04/05/24441 DD/ 8 TD/TT: Technical Sales Engineer: [facility]PITALJaylan HealthcareRadiology Study observation (narrative)[facility] OB TRANSVAGINALOrdered By: Radiologist Radiology on 76-98-8728MQTTMadison Medical Center Work Phone: HCG ( test) Ql (U)on 40-10-0445Cumvblylvriajv and review of laboratory resultsAbnormalNOFL HealthcarePreg Test, UrPositive NegativeNOCrittenton Behavioral Health HealthcareUrinalysis macro (dipstick) panel (U)on 87-89-9842Ossrqyjpc, UANegativeNegative - 4(70) +++ mg/dLNOMS HealthcareBlood, UANegativeNegative - 50 Max/mcLNOMS HealthcareClarity, UAClearNOMS Healthcare Color, UAYellowNOMS HealthcareGlucose, UANegativeNegative - 2000(110) ++++ mg/dL NOMS HealthcareInterpretation and review of laboratory resultsNormalNOMS HealthcareKetones, UANegativeNegative - 160(16) ++++ mg/dLNOMS Healthcare Leukocytes, UANegativeNegative - 500+++ John/mcLNOMS HealthcareNitrite, UA NegativeNegative - PositiveNOMS HealthcarepH, UA5.55 - 9NOMS HealthcareProtein, UANegativeNegative - 1999(20) ++++ mg/dLNOMS HealthcareSpec Grav, UA1.021 - 1.03 NOMS HealthcareUrobilinogen, UA1.00.2 - 12 mg/dLNOMS HealthcareNOMS HealthcareC Urineon 90-78-0852Wwaghilz identified Cx Nom (U)Microbiology PROCEDURE: Urine Culture [R1] SOURCE: U CleanCatch BODY SITE: COLLECTED DATE/TIME: 03/01/2024 10:30 EDT RECEIVED DATE/TIME: 03/01/2024 13:48 EDT START DATE/TIME: 03/01/2024 13:48 EDT FREE TEXT SOURCE: Wilton HERRMANN DO, DO, Corey R FINAL REPORTS Final Report [] Verified Date/Time: 03/03/2024 08:52 EST 2,000 cfu/ml Mixed skin contaminants Performing Locations R1: This test was performed at: [facility], [address] [place] [address], [facility] , , NbxtczQkuqikUniversity Hospitals [facility]ria Medical CenterComment on above:Performed By: #### [id number] #### [facility] [address] [place] [address] 10826OnJM Quanton 21-63-6220GJF.beta subunit Qn747 m[IU]/mLHigh1-3 [facility] HospitalComment on above:Result Comment: 'F NON < 1 - 3' ' 0.2 - 1 WEEK = 5 TO 50' ' 1 - 2 WEEKS = 50 - 500' ' 2 - 3 WEEKS = 100 - 5000' ' 3 - 4 WEEKS = 500 - 09964' ' 4 - 5 WEEKS = 1000 - 68676' ' 5 - 6 WEEKS = 85727 - 376416' ' 6 - 8 WEEKS = 92350 - 886773' ' 8 - 12 WEEKS = 67778 - 522058'Performed By: #### [id number] #### Braulio [facility] [address] [place], [place] [address]ROTSVIYMORvmhxkl By: SYSTEM SYSTEM on 07-60-0111UAE.beta subunit Qn747 m[IU]/mLHigh1 - 3 mIU/mLRemisol ChemComment on above:Result Comment: 'F NON < 1 - 3' ' 0.2 - 1 WEEK = 5 TO 50' ' 1 - 2 WEEKS = 50 - 500' ' 2 - 3 WEEKS = 100 - 5000' ' 3 - 4 WEEKS = 500 - 47490' ' 4 - 5 WEEKS = 1000 - 37460' ' 5 - 6 WEEKS = 29836 - 265014' ' 6 - 8 WEEKS = 87243 - 062140' ' 8 - 12 WEEKS = 62681 - 891578'BhCG Quanton 62-28-1749FCF.beta subunit Qn268 m[IU]/mLHigh1-3FGrant HospitalComment on above:Result Comment: 'F NON < 1 - 3' ' 0.2 - 1 WEEK = 5 TO 50' ' 1 - 2 WEEKS = 50 - 500' ' 2 - 3 WEEKS = 100 - 5000' ' 3 - 4 WEEKS = 500 - 33319' ' 4 - 5 WEEKS = 1000 - 78267' ' 5 - 6 WEEKS = 36206 - 074169' ' 6 - 8 WEEKS = 36226 - 349657' ' 8 - 12 WEEKS = 26024 - 176039'Performed By: #### [id number] #### [facility] [address], [place] [address]XqPL Quanton 19-70-3157CYP.beta subunit Qn123 m[IU]/mLHigh1-3 [facility] HospitalComment on above:Result Comment: 'F NON < 1 - 3' ' 0.2 - 1 WEEK = 5 TO 50' ' 1 - 2 WEEKS = 50 - 500' ' 2 - 3 WEEKS = 100 - 5000' ' 3 - 4 WEEKS = 500 - 27515' ' 4 - 5 WEEKS = 1000 - 28313' ' 5 - 6 WEEKS = 59481 - 677575' ' 6 - 8 WEEKS = 08688 - 127544' ' 8 - 12 WEEKS = 77561 - 483288'Performed By: #### [id number] #### Ramsey [facility] [address], [place] [address]DMVQXVQWLSmysjik By: SYSTEM SYSTEM on 82-14-4039IFL.beta subunit Qn123 m[IU]/mLHigh1 - 3 mIU/mLRemisol ChemComment on above:Result Comment: 'F NON < 1 - 3' ' 0.2 - 1 WEEK = 5 TO 50' ' 1 - 2 WEEKS = 50 - 500' ' 2 - 3 WEEKS = 100 - 5000' ' 3 - 4 WEEKS = 500 - 61311' ' 4 - 5 WEEKS = 1000 - 18854' ' 5 - 6 WEEKS = 35695 - 727333' ' 6 - 8 WEEKS = 79591 - 877543' ' 8 - 12 WEEKS = 40334 - 496472'QvpY8dhx 00-18-6174IwY6d (Bld) [Mass fraction]6.0 %High<=5.9[facility] HospitalComment on above:Performed By: #### [id number] #### Ramsey [facility] [address], [place] [address]IDA Screen 4th Generation wRfxon 16-20-8989DQD 1+2 Ab+HIV1 p24 Ag IA QlNon-ReactiveInvalid Interpretation CodeNon ReactiveKettering Memorial HospitalComment on above:Result Comment: HIV-1/HIV-2 antibodies and HIV-1 p24 antigen were NOT detected. There is no laboratory evidence of HIV infection. HIV Negative Performed at: [facility] [address] [place], [place] [id number] PhD Jd MontanoPerformed By: #### [id number] #### [facility] [address], [place] [address]OuEY Quanton 32-12-5309FDA.beta subunit Qn52 m[IU]/mLHigh1-3 [facility] HospitalComment on above:Result Comment: 'F NON < 1 - 3' ' 0.2 - 1 WEEK = 5 TO 50' ' 1 - 2 WEEKS = 50 - 500' ' 2 - 3 WEEKS = 100 - 5000' ' 3 - 4 WEEKS = 500 - 00102' ' 4 - 5 WEEKS = 1000 - 94451' ' 5 - 6 WEEKS = 18372 - 718454' ' 6 - 8 WEEKS = 14599 - 404949' ' 8 - 12 WEEKS = 85388 - 868585'Performed By: #### [id number] #### Ramsey [facility] [address], [place] [address]CSHVLOZYUBqwnwzb By: SYSTEM SYSTEM on 26-22-9709Dlijcstrrlb [Mass/Vol]225 mg/zWYuxo938 - 200 mg/dLRemisol ChemCholesterol in HDL [Mass/Vol] [...] 3 - 4 WEEKS = 500 - 70101' ' 4 - 5 WEEKS = 1000 - 92658' ' 5 - 6 WEEKS = 54731 - 933077' ' 6 - 8 WEEKS = 37901 - 484504' ' 8 - 12 WEEKS = 12781 - 356914'Triglyceride [Mass/Vol]212 mg/dLHigh <=149mg/dLRemisol ChemTSH Qn5.68 m[IU]/LHigh0.34 - 5.60 mcIU/mLRemisol Chem CHEMISTRYOrdered By: Chelsey Price on 67-75-9135UkI6e (Bld) [Mass fraction]5.9 %Normal<=5.9%[facility] AshaDnmqHEQjzP5rfv 53-25-1698IbA6p (Bld) [Mass fraction]5.9 % Normal<=5.9[facility] HospitalComment on above:Performed By: #### [id number] #### [facility] [address], [place] [address]Sbooe Panelon 23-11-6402Tteuewnmrsl [Mass/Vol]225 mg/dLHigh 120-200[facility] HospitalComment on above:Performed By: #### [id number] #### [facility] [address], [place] [address]Dzgtpcflldb in HDL [Mass/Vol]40 mg/dLInvalid Interpretation CodeKettering Memorial HospitalComment on above:Result Comment: '>= 60 LOW RISK' '<= 40 HIGH RISK'Performed By: #### [id number] #### [facility] [address], [place] [address]Smlkifdvxze in LDL [Mass/Vol]171 mg/dLHigh<=129[facility] HospitalComment on above:Performed By: #### [id number] #### [facility] [address], [place] [address]Ursgokxihyp in VLDL [Mass/Vol]42 mg/dLHigh7-40[facility] HospitalComment on above:Performed By: #### [id number] #### [facility] [address], [place] [address]Egmixjejycem [Mass/Vol]212 mg/dLHigh<=149[facility] HospitalComment on above:Performed By: #### [id number] #### [facility] [address], [place] [address]KOAzw 25-63-1621OHQ Qn5.68 m[IU]/LHigh0.34-5.60[facility] HospitalComment on above:Performed By: #### [id number] #### [facility] [address], [place] [address]Pvyxzrdeor Visit Summaryon 63-35-5211Isxpysbgte Visit Summary Ambulatory Visit Summary SANNA RENDON [...] With: Penelope CASAS DO, FAAFP Where: [facility] [address], [facility] [place] [address]- You Need to Schedule the Following Appointments Follow Up with Penelope CASAS DO, FAAFP, FAM, PED When: In 3 months Where: [address], [facility] [place] [address]- You Need to Complete the [...] virus infection Vaginal marlee (more content not included)...[facility] Medicine Office/Clinic Noteon 37-17-4083Mvxojj Medicine Office/Clinic NoteFapittsfield general hospital Medicine Office/Clinic Note Chief Complaint Patient [...] 40 mg subcu, continue to follow-up with special forces warrant officer 5. Gestational diabetes (O24.419: Gestational diabetes mellitus in , unspecified control) Metformin 500 mg daily XR tabs 2/day per [employer]GER Ordered: HgbA1c HgbA1c HgbA1c HgbA1c 6. Well [...] FAAFP, CHRIS, PED In 3 months [address] [facility], [address] [place] [phone] Additional Instructions: Patient Education Acute Bronchitis, Adult Problem List/Past Medical History Ongoing Acute (more content not included)...[facility] CenterComment on above:Result Comment: Electronically Signed [...] Community acquired pneumonia Refills: 5 Pickup at [facility] 1985 New azithromycin (azithromycin 250 mg Tab 5-day Dose Pack (Z-Jonny)) 1 Packets By Mouth As Directed Community acquired pneumonia Duration: 5 Days as directed on package labeling Pickup at [facility] 1985 Unchanged enoxaparin (Lovenox 40 [...] physician if questions or concerns Pharmacy Information [facility] 1986: [address] [facility] [place], [place] [phone] Allergies Milk Products (Illness) ciprofloxacin (Numbness and [...] you for choosing us for your care. [facility] Medicine Office/Clinic Noteon 46-58-1860Irkihl Medicine Office/Clinic NoteFapittsfield general hospital Medicine Office/Clinic Note Chief Complaint SOB [...] puff(s), Inhalation, q6hr, 1 EA, Refill(s) 5, [facility] 1985, 168, cm, 02/01/2414:43:00 EDT, Height/Length Dosing, 101.1, kg, 02/02/24 14:43:00 EDT, Weight Dosing azithromycin, = 1 packet(s), Oral, As Directed, as directed on package labeling, X 5 day(s), # 6 tab(s), Refills(s) 0, Pharmacy: [facility] 1985, 168, cm, 02/02/24 [...] MD, FAM, MED Only if needed [address] [place] [phone] Additional Instructions: Problem List/Past Medical History Ongoing [...] Vitamin D, 2000 International_Unit (more content not included)...[facility] CenterComment on above:Result Comment: Electronically Signed By: Anni Bernstein MD\.br\Date and Time Signed: 02/01/2415:03 EDTMRI Brain w/o Contraston 81-36-9693DUA Brain w/o ContrastExam Date/Time: 12/06/2023 14:48 EDT [...] Pablo Barker MD Transcribed by: LINDY Technologist: [facility] HospitalCortisolon 03-90-6225Npfuwrmt [Mass/Vol]12.5 microgram/dLInvalid Interpretation Code 6.2-19.4FGrant HospitalComment on above:Result Comment: Please Note: The reference interval and flagging for this test is for an AM collection. If this is a PM collection please use: Cortisol PM: 2.3-11.9 Performed at: [address] [id number] PhD Jd Garciaformed By: #### [id number] #### [facility] [address], [place] [address]I7 Freeon 80-51-1312Pymd T3 [Mass/Vol]2.5 pg/mLInvalid Interpretation Code2.0-4.4FGrant HospitalComment on above:Result Comment: Performed at: [address] [id number] PhD Jd Garciaformed By: #### [id number] #### [facility] [address], [place] [address]Fziwldvhk 12-72-3515Qvkktgq [Catalytic activity/Vol]38 U/L Tzcjnw07-522Ssyq[address] [place], [place] [address]Comment on above:Performed By: #### [id number] #### Ramsey [facility] [address], [place] [address]BDVZBPEDLXydlwvm By: SYSTEM SYSTEM on 71-77-9131Buplojl [Catalytic activity/Vol]38 U/YTbvzaw95 - 157 unit/LRemisol ChemCobalamin (Vitamin B12) [Mass/Vol]328 pg/nMWpufph59 - 1500 pg/mLRemisol ChemCRP [Mass/Vol] 0.2 mg/dLNormal<=1.9mg/dLRemisol ChemFree T4 [Mass/Vol]0.58 ng/dLNormal0.58 - 1.64 ng/dLRemisol ChemTSH Qn4.97 m[IU]/LNormal0.34 - 5.60 mcIU/mLRemisol ChemCRP on 00-13-4108PGP [Mass/Vol]0.2 mg/dLNormal<=1.9[facility] Comment on above:Performed By: #### [id number] #### [facility] [address], [place] [address]Oxbd T4on 41-13-6158Xdbx T4 [Mass/Vol]0.58 ng/dLNormal0.58-1.64 [facility] HospitalComment on above:Performed By: #### [id number] #### [facility] [address] [place] [address]ZJUAEHEMUDQocojkr By: Isha Zheng on 37-27-2258DGF (Bld) [Velocity]18 mm/hNormal0 - 34 mm/[facility] HemeAutoSSSed Rate Automatedon 51-55-0679ULO (Bld) [Velocity]18 mm/hNormal0-34[facility] Comment on above:Performed By: #### [id number] #### [facility] [address], [place] [address]NHMvo 13-17-0197STI Qn4.97 m[IU]/LNormal0.34-5.60[facility] HospitalComment on above:Performed By: #### [id number] #### Braulio [facility] [address], [place] [address]Yif B12on 13-06-7821Wgqqnzxkd (Vitamin B12) [Mass/Vol]328 pg/mL Mrxlhk41-7877Nqwvsi [facility] MarylandComment on above:Performed By: #### [id number] #### [facility] [address], [place] [address]Exlmam Medicine Office/Clinic Noteon 60-74-1726Onrwab Medicine Office/Clinic NoteFapittsfield general hospital Medicine Office/Clinic Note Chief Complaint Right ear [...] Iron deficiency) Mild, as reported by 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 Pre-diabetes (R73.03: Prediabetes) Last A1c Continue metformin Nutrition: - Maintain optimal weight - Calorie restriction - Plant-based diet; high polyunsatur (more content not included)...[facility] CenterComment on above:Result Comment: Electronically Signed By: Jayant YEBOAH, Monica Varela\.br\Date and Time Signed: 11/09/23 15:56 EDTPhysician Referralon 63-16-0572Vuvfcisrg Referral [id number]#[id number] Hospitals Elyria Medical CenterAmbulatory Visit Summaryon 57-68-4530Dqkmoajmgx Visit Summary SANNA RENDON :1985 Visit Date:10/23/2023 [...] (Vitamin D) fluticasone nasal (Flonase 0.05 mg/inh [place]) metformin (MetFORMIN (Eqv-Glucophage XR) 500 mg oral [...] With: Penelope CASAS DO, FAAFP [facility] Office/Clinic Noteon 19-05-4751Gxsfqh Medicine Office/Clinic NoteChief Complaint pt here for [...] Mouth: mucous membranes pink, moist and intact. [place] posterior oropharynx, no palatal inflammation,uvula midline, no [...] 7.5 mL, Refill(s) 0, [facility]/pharmacy #73, 168, cm, 10/23/23 16:55:00 EDT, Height/Length Dosing, 106.2, kg, 10/23/23 16:55:00 EDT, Weight Dosing [facility] External Ambulatory Referral 2. Nasal polyps (J33.9: Nasal polyp, unspecified) pt reported - moved before previous ENT could perform surgery - submitted new referral at this time Ordered: [facility] External Ambulatory Referral 3. Deviated septum (J34.2: Deviated nasal septum) pt reported - moved before previous ENT could perform surgery - see #2 Ordered: [facility] External Ambulatory Referral 4. BMI 37.0-37.9, adult [...] Dosing 5. Obesity ( (more content not included)...[facility] Comment on above:Result Comment: Electronically Signed By: Shirlene YEBOAH, Lourdes Baltazar\.br\Date and Time Signed: 10/23/23 17:13 EDTPatient Educationon 15-07-9263Vatakmu EducationENT Deviated Septum The septum is the [...] specializes in ear, nose, and throat disorders (hand engraver, or ENT) for more tests and treatment. [...] Follow these instructions at home: ? Take ncaj-kei-hriwthv and prescription medicines only as told by [...] specializes in ear, nose, and throat disorders (hand engraver, or ENT) for more tests and treatment. This information is not intended to replace advice given to you by your health care provider. Make sure you discuss any questions you have with your health care provider. Document Revised: 12/12/2021 Document Reviewed: 12/12/2021 [employer] Patient Education ? 2022 [employer]. Nasal Polyps Nasal polyps are growths that form in the nose. Inflammation in the nose or sinus openings can leadto changes in the tissue (mucosa) that lines these areas. Long-term inflammation causes the mucosa to grow into a polyp filled with watery mucus. Nasal polyps look like moist, ochoa grapes in the nose. Nasal polyps are not cancer (more content not included)...[facility] CenterCT Abdomen/Pelvis w/o Contraston 44-00-0380ON Abdomen/Pelvis w/o Contrast Exam Date/Time: 09/28/2023 19:58 [...] Given? No Oral contrast amount in ml's: 0NormWayne HospitalB hCG Qualon 09-68-5354Grdh HCG ( test) QlNegativeNoCleveland Clinic [facility]view Hospital Comment on above:Performed By: #### [id number] #### [facility] [address], [place] [address]NGVso 97-78-9011Godoc gap [Moles/Vol]13 mmol/LNormal6-16[facility] HospitalComment on above:Performed By: #### [id number] #### [facility] [address], [place] [address]Fdikjai [Mass/Vol]9.9 mg/dLNormal8.9-11.1FGrant HospitalComment on above:Performed By: #### [id number] #### [facility] [address], [place] [address]Ozcybisg [Moles/Vol]101 mmol/JSqfbrr618-201TdtrslKettering Memorial HospitalComment on above:Performed By: #### [id number] #### [facility] [address], [place] [address]DS3 [Moles/Vol]25 mmol/UXohles27-13ZdwiluKettering Memorial Hospital Comment on above:Performed By: #### [id number] #### [facility] [address], [place] [address]Jqrroipzwp [Mass/Vol]0.9 mg/dLNormal0.5-1.3FGrant HospitalComment on above:Performed By: #### [id number] #### [facility] [address], [place] [address]Ewatdbi [Mass/Vol]94 mg/tMMaggyk46-624IbraslKettering Memorial HospitalComment on above:Performed By: #### [id number] #### [facility] [address], [place] [address]Dfmkimdud [Moles/Vol]3.6 mmol/LNormal3.5-5.3FGrant HospitalComment on above:Performed By: #### [id number] #### [facility] [address], [place] [address]Teiinu [Moles/Vol]135 mmol/QYrfeux405-880VkwwwdKettering Memorial HospitalComment on above:Performed By: #### [id number] #### [facility] [address], [place] [address]Lwig nitrogen [Mass/Vol]8 mg/dLNormal5-21[facility] HospitalComment on above:Performed By: #### [id number] #### [facility] [address], [place] [address]Dwsy nitrogen/Creatinine [Mass ratio]9 No CzrcnJwn67-18XbxvxcKettering Memorial HospitalComment on above:Performed By: #### [id number] #### [facility] [address] [place] [address]ZLI w/ Auto Diffon 93-94-7430Aycywmixj/100 WBC (Bld)0.7 %Normal 0.0-2.0[facility] HospitalComment on above:Performed By: #### [id number] #### [facility] [address], [place] [address]Nsvisexsw/Leukocytes Auto (Bld) [Pure # fraction]0.1 E9/LNormal 0.0-0.2FGrant HospitalComment on above:Performed By: #### [id number] #### [facility] [address] [place] [address]Fxhgdiopxhf (Bld) [#/Vol]0.0 E9/LNormal0.0-0.5FGrant HospitalComment on above:Performed By: #### [id number] #### [facility] [address] [place] [address] 309[address]Ddkysalzqgu/100 WBC (Bld)0.5 %Normal0.0-8.0[facility] HospitalComment on above:Performed By: #### [id number] #### [facility] [address] [place] [address] 49[address]Nlcuofyrhya distribution width (RBC) [Ratio]14.3 %High10.9-14.2 [facility] HospitalComment on above:Performed By: #### [id number] #### [facility] [address], [place] [address]Vyqtsaddrb (Bld) [Volume fraction]39.5 %Zifcqt32.0-46.0[facility] HospitalComment on above:Performed By: #### [id number] #### [facility] [address], [place] [address]Ypannwdgtq (Bld) [Mass/Vol]13.2 g/lLTtclnc48.0-16.0[facility] HospitalComment on above:Performed By: #### [id number] #### [facility] [address] [place] [address]Mgjawbjbjep (Bld) [#/Vol]3.5 E9/LNormal1.0-4.0[facility] HospitalComment on above:Performed By: #### [id number] #### [facility] [address] [place] [address]Mrcdcswsuut/100 WBC (Bld)35.6 %Zikdqk29.0-50.0[facility] HospitalComment on above:Performed By: #### [id number] #### [facility] [address] [place] [address] 501[address]JAC (RBC) [Entitic mass]29.3 ybGnfymp76.0-34.0[facility] HospitalComment on above:Performed By: #### [id number] #### [facility] [address] [place] [address] 968[address]AYTZ (RBC) [Mass/Vol]33.5 g/bSBapgdj03.4-36.0[facility] HospitalComment on above:Performed By: #### [id number] #### [facility] [address] [place] [address]1961KFS (RBC) [Entitic vol]87.4 xWNvqqgt72.0-100.0[facility] HospitalComment on above:Performed By: #### [id number] #### [facility] [address] [place] [address]Hylpqaxme (Bld) [#/Vol]0.7 E9/LNormal0.2-1.0[facility] HospitalComment on above:Performed By: #### [id number] #### [facility] [address] [place] [address]Mlwxvjndswq (Bld) [#/Vol]5.6 E9/LNormal2.0-7.5FGrant HospitalComment on above:Performed By: #### [id number] #### [facility] [address] [place] [address] 76[address]Odyqyblsprb/100 WBC (Bld)56.4 %Yakity95.0-75.0[facility] HospitalComment on above:Performed By: #### [id number] #### [facility] [address] [place] [address]13[address]Nmklqqrh mean volume (Bld) [Entitic vol]8.1 fLNormal6.4-10.8 [facility] HospitalComment on above:Performed By: #### [id number] #### [facility] [address] [place] [address] 12644Mwzzjehgr (Bld) [#/Vol]360.0 E9/UQvzepc631.0-500.0[facility] HospitalComment on above:Performed By: #### [id number] #### [facility] [address] [place] [address] 39[address]WPB (Bld) [#/Vol]4.5 E12/LNormal4.3-5.9[facility] HospitalComment on above:Performed By: #### [id number] #### [facility] [address] [place] [address] 08518BAT corrected for nucl RBC Auto (Bld) [#/Vol]9.9 E9/LNormal 4.0-11.0[facility] HospitalComment on above:Performed By: #### [id number] #### [facility] [address] [place] [address]KDEZJLWOMEzkovms By: SYSTEM SYSTEM on 58-84-7902Fdfzzvi [Mass/Vol]4.8 g/dLNormal3.3 - 5.0 gm/dLRemisol ChemAlbumin/Globulin [Mass ratio] 1.6 {ratio}Normal1.1 - 2.2Remisol ChemALP [Catalytic activity/Vol]66 [iU]/d Lambgp83 - 98 Int._Unit/LRemisol ChemALT No additional P-5'-P [Catalytic activity/Vol]16 [iU]/dNormal6 - 46 Int._Unit/LRemisol ChemAnion gap [Moles/Vol] 13 mmol/LNormal6 - 16 mEq/LRemisol ChemAST [Catalytic activity/Vol]15 [iU]/d Normal5 - 43 Int._Unit/LRemisol ChemBilirubin [Mass/Vol]0.3 mg/dLNormal0.0 - 1.1 mg/dLRemisol ChemBilirubin.direct [Mass/Vol]0.0 mg/dLNormal0.0 - 0.4 mg/dL Remisol ChemBilirubin.indirect [Mass or moles/Vol]0.3 mg/dLNormal0.1 - 0.9 mg/dL Remisol ChemCalcium [Mass/Vol]9.9 mg/dLNormal8.9 - 11.1 mg/dLRemisol Chem Chloride [Moles/Vol]101 mmol/DOdfubm945 - 111 mmol/LRemisol ChemCO2 [Moles/Vol] 25 mmol/AEqcjln45 - 31 mmol/LRemisol ChemCreatinine [Mass/Vol]0.9 mg/dLNormal0.5 - 1.3 mg/dLRemisol JpukiNBO11 mL/min/1.73 r0Mubmam>=59mL/min/1.73 k6Dmheosh ChemGlobulin (S) [Mass/Vol]3.0 g/dLNormal1.4 - 4.0 gm/dLRemisol ChemGlucose [Mass/Vol]94 mg/lXStlssl93 - 199 mg/dLRemisol ChemLipase [Catalytic activity/Vol]26 U/RZjwzyy56 - 58 unit/LRemisol ChemPotassium [Moles/Vol]3.6 mmol/LNormal3.5 - 5.3 mmol/LRemisol ChemProtein [Mass/Vol]7.8 g/dLNormal6.0 - 7.8 gm/dLRemisol ChemSodium [Moles/Vol]135 mmol/OBkvvpj227 - 145 mmol/LRemisol ChemUrea nitrogen [Mass/Vol]8 mg/dLNormal5 - 21 mg/dLRemisol ChemUrea nitrogen/Creatinine [Mass ratio]9 mg/mgLow10 - 20Remisol ChemConsent for Treatmenton 73-86-9629Uxinlng for Treatment [id number]#1.00[facility] OhioDischarge Instructionson 30-83-2946Tkvhgqaod Instructions [id number]#1.00[facility] Clinical Summaryon 03-03-7586EZ Clinical Summary [place] [id number] ED Clinical Summary Person Information Name: SANNA RENDON [facility] Age: 37 Years : 1985 Sex: Female Language: Guatemalan PCP: Penelope CSAAS DO, FAAFP Marital Status: Phone: [phone] MRN: [id number] Visit Id: Visit Reason: Medical problem - [...] 09/28/2023 21:22:15 09/28/2023 21:22:15 09/28/2023 21:22:15 ADDRESS: [address] [place] [phone] PHYS DOC NOTES: MEDICAL INFORMATION: Prescriptions Given: Medications to Continue with No Changes Other Medications enoxaparin (Lovenox 40 mg/0.4 mL Injection) 40 Milligram Subcutaneous every 24 hours. ergocalciferol (Vitamin D) 2,000 International unit By Mouth every week. fluticasone nasal (Flonase 0.05 mg/inh [place]) 2 Sprays Nasal Inhalation every day. each nostril. metformin (MetFORMIN (Eqv-Glucophage XR) 500 mg oral tablet, extended release) 2 Tablets By Mouth every day. PATIENT EDUCATION INFORMATION: Instructions: Abdominal Pain, Adult Follow up: With: Address: When: Penelope [address], [place] [address] Clipboard (1) In 3 days DIAGNOSIS: 1:Abdominal painNoMercy Health St. [facility] CenterED Note-Physicianon 09-28-2023 ED Note-PhysicianPatient was signed [...] understanding agreement this plan is discharged stable condition.[facility] Medical CenterComment on above:Result Comment: Electronically Signed By: Sidney Daly DO\.cedrick\Date and Time Signed: 09/28/23 21:12 EDTED Note-PhysicianBasic Information Time Seen: Bijan Miramontes PA-C 09/28/2023 18:46 Chief Complaint Pt woke up around 7 am and started getting a pain on R side of belly button. States feels bloated and like her abdomen is coral.Was sent here from [facility] for possible appendicitis. Nausea, denies [...] mL, IV, Once Home Flonase 0.05 mg/inh [place], 2 spray(s), Nasal, Daily Lovenox 40 mg/0.4 [...] Lab Results No qual (more content not included)...[facility] CenterComment on above:Result Comment: Electronically Signed By: Bijan Miramontes PA-C\.br\Date and Time Signed: 09/27/2417:50 EDT\.br\Electronically Co-Signed By: Benny Uribe DO\.br\Date and Time Co-Signed: 09/27/2418:44 EDTED Patient Education Noteon [id number] Patient Education NoteGastroenterology Abdominal Pain, Adult Pain [...] these instructions at home: Medicines ? Take oqcv-ykp-dncprpw and prescription medicines only as told by [...] your condition for any changes. ? Take wkam-jak-dmzyzox and prescription medicines only as told by [...] Reviewed: 08/25/2019 Elsevier Patient Education ? 2022 [employer].[facility] ED Patient Summaryon [id number] Patient Summary [address] [address] Patient Discharge Instructions Person Information Name: SANNA RENDON Age: 37 Years Arrival Date: 09/28/2023 18:21:25 Discharge Diagnosis: 1:Abdominal pain Primary Care Physician: Penelope CASAS DO, FAAFP Provider Information Primary Provider: Benny Uribe DO Advanced Gang Ripsaw Operator:Bijan Miramontes PA-C The exam and treatment you received in the Emergency Department were for an urgent problem and are not intended as complete care. It is important that you follow up with a doctor, nurse practitioner,or physician?s operational assistant for ongoing care. If your symptoms [...] Follow-up Instructions: With: Address: When: Penelope CASAS [address] [place] [address], [facility] [place] [phone] Business (1) In 3 days In the event that this physician does not participate in your insurance network, please consult with your insurance company to find a nearby participating provider. Patient Education Materials: Abdominal Pain, Adult A MESSAGE TO ALL PATIENTS REGARDING OPIOIDS PRESCRIPTION OPIOIDS: WHAT YOU NEED TO KNOW Prescription opioids can be used to help relieve jvptrnti-cb-ssxorm pain and are often prescribed following a [...] be struggling with addiction, tell your health urgent care technician and ask for guidance or call [facility]?S National Helpline at 2-006-477-LDK Solar. y Source: Dep (more content not included)...[facility] Family Medicine Office/Clinic Noteon 13-19-6267Pdsrof Medicine Office/Clinic NoteChief Complaint abdominal pain HPI [...] agree with above documented HPI by medical billing representative. Portions of this record may have been created with voice recognition artificial intelligence software, specifically Hop Skip Connect, Gamook and or Environmental Operations. Substitutions may have occurred due to the inherent limitations of voice recognition and artificial intelligence software. Patient is a 37-year-old female who presents to [facility], for right lower quadrant pain, that [...] Repeat BP 140/90. 37-year-old female presented to [facility], for right lower quadrant abdominal pain, worseningsymptoms [...] loss. We can o (more content not included)...[facility] CenterComment on above:Result Comment: Electronically Signed By: CHARLA QUINTEROS, JANET\.br\Date and Time Signed: 09/28/23 18:28 EDTHEMATOLOGYOrdered By: SYSTEM SYSTEM on 00-19-7191Vlerkhhku/100 WBC (Bld)0.7 %Normal0.0 - 2.0 %Remisol HemeBasophils/Leukocytes Auto (Bld) [Pure # fraction]0.1 E9/LNormal0.0 - 0.2 E9/LRemisol HemeEosinophils (Bld) [#/Vol]0.0 E9/LNormal0.0 - 0.5 E9/LRemisol HemeEosinophils/100 WBC (Bld)0.5 % Normal0.0 - 8.0 %Remisol HemeErythrocyte distribution width (RBC) [Ratio]14.3 % High10.9 - 14.2 %Remisol HemeHematocrit (Bld) [Volume fraction]39.5 %Gypbnr00.0 - 46.0 %Remisol HemeHemoglobin (Bld) [Mass/Vol]13.2 g/bXLlgtgy17.0 - 16.0 gm/dL Remisol HemeLymphocytes (Bld) [#/Vol]3.5 E9/LNormal1.0 - 4.0 E9/LRemisol Heme Lymphocytes/100 WBC (Bld)35.6 %Ogqsaa98.0 - 50.0 %Remisol HemeMCH (RBC) [Entitic mass]29.3 wyBkssrs23.0 - 34.0 pgRemisol HemeMCHC (RBC) [Mass/Vol]33.5 g/dL Sopmih00.4 - 36.0 gm/dLRemisol HemeMCV (RBC) [Entitic vol]87.4 zUNxtdsx12.0 - 100.0 fLRemisol HemeMonocytes (Bld) [#/Vol]0.7 E9/LNormal0.2 - 1.0 E9/LRemisol HemeMonocytes/100 WBC (Bld)6.8 %Normal4.0 - 14.0 %Remisol HemeNeutrophils (Bld) [#/Vol]5.6 E9/LNormal2.0 - 7.5 E9/LRemisol HemeNeutrophils/100 WBC (Bld)56.4 % Seofln57.0 - 75.0 %Remisol HemePlatelet mean volume (Bld) [Entitic vol]8.1 fL Normal6.4 - 10.8 fLRemisol HemePlatelets (Bld) [#/Vol]360.0 E9/YJcvbbe068.0 - 500.0 E9/LRemisol HemeRBC (Bld) [#/Vol]4.5 E12/LNormal4.3 - 5.9 E12/LRemisol HemeWBC corrected for nucl RBC Auto (Bld) [#/Vol]9.9 E9/LNormal4.0 - 11.0 E9/L Remisol HemeHep Func Panelon 19-26-0141Txwoget [Mass/Vol]4.8 g/dLNormal3.3-5.0 [facility] HospitalComment on above:Performed By: #### [id number] #### [facility] [address] [place], [place] [address]Mpwrltr/Globulin (S) [Mass conc ratio]1.9Vlpaoj1.1-2.2FGrant HospitalComment on above:Performed By: #### [id number] #### [facility] [address] [place] [address] 05659NOW [Catalytic activity/Vol]66 Int._Unit/REoawef79-30MnskdnKettering Memorial HospitalComment on above:Performed By: #### [id number] #### [facility] [address] [place] [address] 34270VED No additional P-5'-P [Catalytic activity/Vol]16 Int._Unit/L Normal6-46[facility] HospitalComment on above:Performed By: #### [id number] #### [facility] [address] [place] [address] 79418NST [Catalytic activity/Vol]15 Int._Unit/LNormal5-43[facility] HospitalComment on above:Performed By: #### [id number] #### [facility] [address] [place] [address]Tmsbbzcpn [Mass/Vol]0.3 mg/dLNormal0.0-1.1FGrant HospitalComment on above:Performed By: #### [id number] #### [facility] [address] [place] [address]Snllokvnp.direct [Mass/Vol]0.0 mg/dLNormal0.0-0.4FGrant HospitalComment on above:Performed By: #### [id number] #### [facility] [address] [place] [address] 23[address]Dejsefkwl.indirect [Mass or moles/Vol]0.3 mg/dLNormal0.1-0.9 [facility] HospitalComment on above:Performed By: #### [id number] #### [facility] [address] [place] [address]Wvctzvbz (S) [Mass/Vol]3.0 g/dLNormal1.4-4.0[facility] HospitalComment on above:Performed By: #### [id number] #### [facility] [address] [place], [place] [address]Cxsyjsl [Mass/Vol]7.8 g/dLNormal6.0-7.8[facility] HospitalComment on above:Performed By: #### [id number] #### [facility] [address] [place], [place] [address]Krfdcc Levelon 35-19-7582Uvphjh [Catalytic activity/Vol]26 U/L Yolbzx27-89WwpaonKettering Memorial HospitalComment on above:Performed By: #### [id number] #### [facility] [address] [place], [place] [address]Ojivwjs Educationon 23-96-9655Wtkoxbg EducationCardiovascular Hypertension, Adult Hypertension is another name [...] Keep all follow-up visits. Medicines ? Take mwit-kvr-wcfngmd and prescription medicines only as told by [...] blood. ? For m (more content not included)...[facility] CenterRAD - Preliminary Cat Scan Reporton [id number] - Preliminary Cat Scan Report [id number]#1.00TIFFNormProMedica Fostoria Community HospitalEROLOGYOrdered By: Amanda Siegel on 88-22-3810Kbnh HCG ( test) QlNegative (09/28/23 6:59 PM)[facility] Man SeroUA with Cult Rflxon 57-19-4722Ecimstpdr Ql (U)NegativeNormalNegCincinnati Children's Hospital Medical CenterComment on above:Performed By: #### [id number] ####Braulio [facility] [address], R[place]Sgrhhiv (U)ClearNormalClearKettering Memorial HospitalComment on above:Performed By: #### [id number] ####[facility] [address]Norwalk, [place]Bbuxq (U)ColorlessAbnormalYellowKettering Memorial HospitalComment on above:Result Comment: Microscopic readings are only performed on those samples that meet specific criteria set forth by [facility].Performed By: #### [id number] ####[facility] [address]rl[address]Norwalk, WP[address]Ybljbul Ql (U)Negative NormalNegativeKettering Memorial HospitalComment on above:Performed By: #### [id number] ####[facility] [address]Norwalk, [place] [address]Iemoosyzno Auto test strip (U) [Mass/Vol]NegativeNormalNegativeKettering Memorial HospitalComment on above:Performed By: #### [id number] ####[facility] [address]Norwalk, [place]Maxymsa Auto test strip Ql (U)NegativeNormalNegativeKettering Memorial HospitalComment on above: Performed By: #### [id number] ####[facility] [address]Norwalk, [place]X[address]Psyidjwaj esterase Auto test strip Ql (U)Negative NormalNegativeKettering Memorial HospitalComment on above:Performed By: #### [id number] ####[facility] [address]walk, [place] [address]Dwpjknb Auto test strip Ql (U)NegativeNormalNegativeKettering Memorial HospitalComment on above:Performed By: #### [id number] ####[facility] [address]Norwalk, YZ[address]tR (U)7.0 [pH]Invalid Interpretation Code5.0-9.0[facility] HospitalComment on above:Performed By: #### [id number] ####[facility] [address]cqc[address]Norwalk, XH[address]Lptwyod Ql (U)NegativeNormalNegativeKettering Memorial HospitalComment on above:Performed By: #### [id number] ####[facility] Pvmumwaswm049 [facility] TT[address]Uiuddcdy gravity (U) [Rel density]1.003Invalid Interpretation Code1.005-1.030[facility] Comment on above:Performed By: #### [id number] ####[facility] [address] [place], [place]Urobilinogen (U) [Mass/Vol]Negative NormalNegativeKettering Memorial HospitalComment on above:Performed By: #### [id number] ####[facility] [address] [place], [place] [address]Ouiq of Urine collection methodClean CatchNoCleveland Clinic Fairview Hospital Comment on above:Performed By: #### [id number] ####[facility] [address] [place], [place]XVKSZDVXJHIhveptr By: SYSTEM SYSTEM on 82-04-2199Cvlkjbkak Ql (U)NegativeNormalNegativemg/dLSEILING REGIONAL [facility] UA Auto SSClarity (U) Clear (09/28/23 7:35 PM)NormalClearFTM UA Auto SSColor (U)Colorless 1 *ABN* (09/28/23 7:35 PM)Invalid Interpretation CodeYellowSEILING REGIONAL MEDICAL CENTER – [place] UA Auto SSComment on above:Interpretive Data: Microscopic readings are only performed on those samples that meet specific criteria set forth by [facility].Glucose Ql (U)NegativeNormalNegativemg/dLFT UA Auto SSHemoglobin Auto test strip (U) [Mass/Vol]NegativeNormalNegativemg/dLFT UA Auto SSKetones Auto test strip Ql (U)NegativeNormalNegativemg/dLFT UA Auto SSLeukocyte esterase Auto test strip Ql (U)NegativeNormalNegativeLeu/uLFT UA Auto SS Nitrite Auto test strip Ql (U)NegativeNormalNegativemg/dLFT UA Auto SSpH (U) 7.0 *NA* (09/28/23 7:35 PM)Invalid Interpretation Code5.0 - 9.0[facility] UA Auto SSProtein Ql (U)NegativeNormalNegativemg/dLSEILING REGIONAL MEDICAL CENTER – [place] UA Auto SSSpecific gravity (U) [Rel density] 1.003 *NA* (09/28/23 7:35 PM)Invalid Interpretation Code1.005 - 1.030[facility] UA Auto SS Urobilinogen (U) [Mass/Vol]NegativeNormalNegativemg/dLSEILING REGIONAL MEDICAL CENTER – [place] UA Auto SSURINALYSIS Ordered By: Bijan Miramontes on 16-16-2106DO Spec DescClean Catch (09/28/23 7:35 PM)NormalSEILING REGIONAL MEDICAL CENTER – [facility]ILING UA Auto SS eGFRon 76-53-7625yEJG22 mL/min/1.73 f0Bqeoue>=59Fisher [facility] Western MarylandComment on above:Order Comment: Order added by Discern Expert.Performed By: #### [id number] #### [facility] [address], [place] [address]Qgtzezszuz Visit Summaryon 73-21-6543Fixwecclvi Visit Summary SANNA RENDON :1985 Visit Date:08/03/2023 [...] (Vitamin D) fluticasone nasal (Flonase 0.05 mg/inh [place]) metformin (MetFORMIN (Eqv-Glucophage XR) 500 mg oral [...] Up with PRAVEEN RESENDEZ FAAFP, Penelope Tony, FAM, PED When: In 4 months Where: [address], [place] [address]- You Need to Complete the Following HgbA1c, [...] Unchanged fluticasone nasal (Flonase 0.05 mg/ inh [place]) 2 Sprays Nasal Inhalation Every day each [...] ? Walking a mile (more content not included)...[facility] Family Medicine Office/Clinic Noteon 47-14-7945Ghvuze Medicine Office/Clinic NoteChief Complaint Wants to discuss [...] comfortable with plan. PNMV Ordered: A1c POC 98810 Total time spent preparing the chart, conducting [...] FAAFP, FAM, PED In [address] [place] [address]- Additional Instructions: Patient Education Exercising to Lose Weight Problem Lis (more content not included)...[facility] Comment on above:Result Comment: Electronically [...] your health care provider or diet and food and nutrition supervisor (dietitian). This may include: ? Eating fewer [...] regular exercise is e (more content not included)...[facility] Medical CenterPatient Educationon 27-75-9715Yliivni EducationEndocrinology Blood Glucose Monitoring, Adult Monitoring your [...] meter by following in (more content not included)...[facility] CenterLab Reportson 04-61-6043Wgp Reports [id number]#1.00[facility] OhioConsultation Noteon 79-38-1255Nxkcrggfgbmp Note [id number]#1.00[facility] OhioAmbulatory Visit Summaryon 75-18-8307Jupvckjqvi Visit Summary SANNA RENDON :1985 Visit Date:05/25/2023 [...] With: Penelope CASAS DO, FAAFP [facility] CareUniversity [facility] Family Medicine Office/Clinic Noteon 30-37-9019Urvogq Medicine Office/Clinic NoteChief Complaint States she is [...] Benadryl. 2. 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 [...] FAAFP, CHRIS, PED In 2 months [address], [place] [address]- Additional Instructions: Patient Education Eustachian Tube Dysfunction Dyshidrotic Eczema Allergies, Tadeo (more content not included)...[facility] Comment on above:Result Comment: Electronically [...] ears completely after. General instructions ? Take iekr-yaf-iytcstz and prescription medicines only as told by [...] cases are treated w (more content not included)...[facility] Urineon 73-00-4156Ypjpvaux identified Cx Nom (U) Microbiology PROCEDURE: Urine Culture [R1] SOURCE: U Random BODY SITE: COLLECTED DATE/TIME: 05/01/2023 18:00 EST RECEIVED DATE/TIME: 05/01/2023 18:08 EST START DATE/TIME: 05/01/2023 18:08 EST FREE TEXT SOURCE: Penelope CASAS DO, FAAFP, DO, FAAFP, Penelope Tony FINAL REPORTS Final Report [] Verified Date/Time: 05/03/2023 07:00 EST <10,000 cfu/ml Mixed skin contaminants Performing Locations R1: This test was performed at: [facility], [address] [place] [address], [address] , [place], ExhacxNkicnbWayne HospitalComment on above:Performed By: #### [id number] ####[address] [address]Eqtmlbq for Treatmenton 03-20-0418Pdlbgzt for Treatment [id number]#1.00TIFFNoCleveland Clinic Fairview HospitalUrinalysison 78-92-1117Afhnzugw LM Ql (Urine sed)TRACENormalTraceKettering Memorial HospitalComment on above:Performed By: #### [id number] ####[address] [address]Umkwpzzfy Ql (U) NegativeNormalNegCincinnati Children's Hospital Medical CenterComment on above:Performed By: #### [id number] ####[address] [address]Boiiqbq (U)CLOUDYAbnormalClearFGrant HospitalComment on above:Performed By: #### [id number] ####[address] [address]Gauvg (U)YELLOWNormalYellowKettering Memorial HospitalComment on above:Performed By: #### [id number] ####[address] [address]Vjnauwtaet cells.squamous LM.HPF (Urine sed) [#/Area]/[HPF]Normal0-2Fisher [facility]c Western MarylandComment on above:Performed By: #### [id number] ####[address] [address]Xjyxfyx Test strip (U) [Mass/Vol]NegativeNormal NegativeKettering Memorial HospitalComment on above:Performed By: #### [id number] ####[address] [address] Hemoglobin Ql (U)NegativeNormalNegCincinnati Children's Hospital Medical CenterComment on above:Performed By: #### [id number] ####[address] [address]Dcjciat (U) [Mass/Vol]NegativeNormalNegativeKettering Memorial HospitalComment on above:Performed By: #### [id number] ####[address] [address] Benson.plasma/Benson.RBC (Bld) [Mass ratio]4-9Zzeror2-9Djdmej [facility] MarylandComment on above:Performed By: #### [id number] ####[address] [address]Xpjcxta Ql (U)NegativeNormal NegativeKettering Memorial HospitalComment on above:Performed By: #### [id number] ####[address] [address]iZ (U)6.0 [pH]Invalid Interpretation Code5.0-9.0[facility] HospitalComment on above:Performed By: #### [id number] ####[address] [address]Ghzsjis (U) [Mass/Vol]NegativeNormal NegativeKettering Memorial HospitalComment on above:Performed By: #### [id number] ####[address] [address] Specific gravity (U) [Rel density]<=1.005Invalid Interpretation Code1.005-1.030 [facility] HospitalComment on above:Performed By: #### [id number] ####[address] [address]Hznx of Urine collection methodClean CatchNormalKettering Memorial HospitalComment on above:Performed By: #### [id number] ####[address] [address]Vwejjzmheybh Qn (U)0.2 {Nicole'U}/dLNormal0.0-1.0 [facility] HospitalComment on above:Performed By: #### [id number] ####[facility] [address] [place], [place] [address]BDA Auto Ql (U)TRACEAbnormalNegativeKettering Memorial HospitalComment on above: Performed By: #### [id number] ####[facility] [address] [place], [place] [address]UAH LM.HPF (Urine sed) [#/Area]3-1Bskudr6-1Seghcx [facility] MarylandComment on above:Performed By: #### [id number] ####[facility] [address] [place], [place] [address]Lbbbtmrrhb Visit Summaryon 43-48-4036Vhzfhkqsov Visit Summary SANNA RENDON :1985 Visit Date:04/27/2023 [...] EST With: Penelope CASAS DO, FAAFP Where: [facility] CHEMISTRYOrdered By: SYSTEM SYSTEM on 77-71-5358ACE Qn4.04 m[IU]/LNormal0.34 - 5.60 mcIU/mLRemisol ChemFamily Medicine Office/Clinic Noteon 76-78-8842Ihqzts Medicine Office/Clinic NoteChief Complaint Since last Sunday has been having joint pain with burning sensation and has been having diarrheawith stomach pain. States her kids are sick. Also has been having burning in her nipples, she is . Wants her thyroid checked. History of Present Illness Children are sick at home and has been having diarrhea since Sunday before [place], nonbloody with some associated stomach pain. She has been having some burning in her nipples when she is breast-feeding and wants her thyroid checked. Muscle aches and pains like flu Still breast feeding. No loss of taste nor smell. [id number] while taking Glucophage XR 500 mg p.o. [...] Push fluids and Tylenol and or ibuprofen gajd-ang-exrlgxh as directed. Patient does not appear ill [...] Your BMIand weight manag (more content not included)...[facility] CenterComment on above: Result Comment: Electronically Signed By: Penelope CASAS DO, FAAFP\.br\Date and Time Signed: 04/27/23 12:53 ESTPatient Educationon 67-90-1319Jznzgdd Education Endocrinology Diabetes Mellitus and Exercise Exercising [...] plan? Your health care provider or certified orthotist practice manager can help you make a plan [...] stroke). Where to find more information ? [place] Diabetes [employer]: www.diabetes.org Summary ? Exercising regularly is important for overall health, especially for people who have diabetes mellitus. ? Exercising has many health benefits. It increases muscle strength and bone density and reduces body fat and stress. It also lowers and controls blood glucose. ? Your health care provider or certified orthotist practice manager can help you make an activity [...] provider. Document Revised: 01/12/2020 Document Reviewed: 01/12/2020 ElseGetShopApp Patient Education ? 2022 [employer] Preventing Hypoglycemia Hypoglycemia occurs when the level of sugar (glucose) in the blood is too low. Hypoglycemia can happen in people who do or do not have diabetes (diabetes (more content not included)...NormalKettering Memorial HospitalTSHon 96-72-4585OYC Qn 4.04 m[IU]/LNormal0.34-5.60[facility] HospitalComment on above:Performed By: #### [id number] ####[facility] [address] [place], [place] [address]Yjwaztjdvo Visit Summaryon 92-64-0371Mqpnpoutjc Visit Summary SANNA RENDON :1985 Visit Date:02/15/2023 [...] FAAFP, Penelope Tony, CHRIS, PED When: In 2 months Where: [address], [place] [address]- You Need to Complete the Following HgbA1c, [...] miscarriage Suspected COVID-19 virus infection Vaginal tabitha [facility] Medicine Office/Clinic Noteon 98-80-8382Vqodnb Medicine Office/Clinic NoteChief Complaint States since Sunday evening her right ear is draining and is a little painful 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 She is continuing 500 mg of [...] Contact Information PRAVEEN Johnson (more content not included)...[facility] CenterComment on above:Result Comment: Electronically Signed By: Penelope CASAS DO, FAAFP\.br\Date and Time Signed: 02/15/23 10:13 EDTPatient Educationon [...] cannot use soap and water, use hand assistant store director. 2. Make sure your ears are clean [...] cannot use soap and water, use hand assistant store director. Follow these instructions at home: ? Use [...] provider. Document Revised: 02/11/2020 Document Reviewed: 02/11/2020 [employer] Patient Education ? 2022 [employer] Infectious Disease Otitis Externa Otitis externa [...] you start to feel better. ? Take vfuz-yds-cqpgaht and prescription medicines only as told by your doctor. ? Avoid getting water in your ears as told by your doctor. You may be told to avoid swimming or water sports for a few days. ? Keep all follow-up visits. How is this prevented? ? Keep your ears dry. Use the corner o (more content not included)...Normal [facility] Educationon 11-14-3103Ndzzlge Education Immunology Fatigue If you have fatigue, [...] these instructions at home: Medicines ? Take cggh-imv-skaaowk and prescription medicines only as told by [...] the National Suicide Prevention Lifeline at or 732. This is open 24 hours a day. ? Text the Crisis Text Line at 953709. Summary ? If you have fatigue, you [...] provider. Document Revised: 02/06/2022 Document Reviewed: 02/06/2022 [employer] Patient Education ? 2022 [employer]. Urology Urodynamic Testing Urodynamic tests are done [...] Leaking urine (inco (more content not included)...NormalKettering Memorial HospitalCHEMISTRYOrdered By: SYSTEM SYSTEM on 96-66-6192Arbh T4 [Mass/Vol]0.58 ng/dLNormal0.58 - 1.64 ng/dLFTMC RemisolTSH Qn3.35 m[IU]/LNormal0.34 - 5.60 mcIU/mLFTMC RemisolAlbumin [Mass/Vol]4.5 g/dLNormal3.3 - 5.0 gm/dLFTMC Remisol Albumin/Globulin [Mass ratio]1.4 {ratio}Normal1.1 - 2.2FTMC RemisolALP [Catalytic activity/Vol]62 [iU]/hUvjbtj38 - 98 Int._Unit/LFTMC RemisolALT No additional P-5'-P [Catalytic activity/Vol]27 [iU]/dNormal6 - 46 Int._Unit/LFTMC RemisolAnion gap [Moles/Vol]13 mmol/LNormal6 - 16 mEq/LFTMC RemisolAST [Catalytic activity/Vol]21 [iU]/dNormal5 - 43 Int._Unit/LFTMC RemisolBilirubin [Mass/Vol]0.3 mg/dLNormal0.0 - 1.1 mg/dLFTMC RemisolCalcium [Mass/Vol]9.6 mg/dL Normal8.9 - 11.1 mg/dLFTMC RemisolChloride [Moles/Vol]104 mmol/TKrropv800 - 111 mmol/LFTMC RemisolCO2 [Moles/Vol]25 mmol/QBhmzjd67 - 31 mmol/LFTMC Remisol Cobalamin (Vitamin B12) [Mass/Vol]211 pg/vZTjudnl16 - 1500 pg/mLFTMC Remisol Creatinine [Mass/Vol]0.9 mg/dLNormal0.5 - 1.3 mg/dLFTMC RemisolFerritin [Mass/Vol]38 ng/uDFuhqoz61 - 307 ng/mLFTMC RemisolFolate [Mass/Vol]13.5 ng/mL Normal>=6.7ng/mLFTMC RemisolGFR/1.73 sq M.predicted among non-blacks MDRD (S/P/Bld) [Vol rate/Area]85 mL/min/1.73 f3Jeadmg>=59mL/min/1.73 m2[facility] Chem S Globulin (S) [Mass/Vol]3.3 g/dLNormal1.4 - 4.0 gm/dLFTMC RemisolGlucose [Mass/Vol]93 mg/yYRdgceo31 - 199 mg/dLFTMC RemisolIron [Mass/Vol]56 ug/dLNormal 35 - 153 mcg/dLFTMC RemisolIron binding capacity [Mass/Vol]395 ug/qRBfwygw964 - 400 mcg/dLFTMC RemisolPotassium [Moles/Vol]3.7 mmol/LNormal3.5 - 5.3 mmol/LFTMC RemisolProtein [Mass/Vol]7.8 g/dLNormal6.0 - 7.8 gm/dLFTMC RemisolSodium [Moles/Vol]138 mmol/RAhcvef605 - 145 mmol/LFTMC RemisolTransferrin [Mass/Vol]282 mg/mHNondmr423 - 370 mg/dLFTMC RemisolUrea nitrogen [Mass/Vol]11 mg/dLNormal5 - 21 mg/dLFTMC RemisolUrea nitrogen/Creatinine [Mass ratio]12 mg/lcLsncdw62 - 20 [facility] RemisolHEMATOLOGYOrdered By: SYSTEM SYSTEM on 94-78-4772Adahjydoq/100 WBC (Bld)0.6 %Normal0.0 - 2.0 %[facility] HemeAutoSSBasophils/Leukocytes Auto (Bld) [Pure # fraction]0.0 E9/LNormal0.0 - 0.2 E9/LFTMC HemeAutoSSEosinophils/100 WBC (Bld) 1.1 %Normal0.0 - 8.0 %[facility] HemeAutoSSEosinophils/Leukocytes Auto (Bld) [Pure # fraction]0.1 E9/LNormal0.0 - 0.5 E9/LFTMC HemeAutoSSLymphocytes/100 WBC (Bld) 42.4 %Hzmegy08.0 - 50.0 %[facility] HemeAutoSSLymphocytes/Leukocytes Auto (Bld) [Pure # fraction]3.4 E9/LNormal1.0 - 4.0 E9/LFTMC HemeAutoSSMonocytes/100 WBC (Bld)8.0 %Normal4.0 - 14.0 %[facility] HemeAutoSSMonocytes/Leukocytes Auto (Bld) [Pure # fraction]0.6 E9/LNormal0.2 - 1.0 E9/LFTMC HemeAutoSSNeutrophils/100 WBC (Bld) 47.9 %Hbrszk17.0 - 75.0 %[facility] HemeAutoSSNeutrophils/Leukocytes Auto (Bld) [Pure # fraction]3.8 E9/LNormal2.0 - 7.5 E9/LFTMC HemeAutoSSHEMATOLOGYOrdered By: Trena Castro on 36-34-6341Njcowdfrulz distribution width (RBC) [Ratio]14.5 % High10.9 - 14.2 %[facility] HemeAutoSSHematocrit (Bld) [Volume fraction]37.4 %Normal 34.0 - 46.0 %[facility] HemeAutoSSHemoglobin (Bld) [Mass/Vol]13.1 g/yCArorus86.0 - 16.0 gm/dLFTMC HemeAutoSSMCH (RBC) [Entitic mass]30.6 yiHzbivr89.0 - 34.0 pgFTMC HemeAutoSSMCHC (RBC) [Mass/Vol]34.9 g/mACzoney21.4 - 36.0 gm/dLFTMC HemeAutoSS MCV (RBC) [Entitic vol]87.7 iNWwztza22.0 - 100.0 fLFTMC HemeAutoSSPlatelet mean volume (Bld) [Entitic vol]8.2 fLNormal6.4 - 10.8 fLFTMC HemeAutoSSPlatelets (Bld) [#/Vol]334.0 E9/IHhldrf387.0 - 500.0 E9/LFTMC HemeAutoSSRBC (Bld) [#/Vol] 4.3 E12/LNormal4.3 - 5.9 E12/LFTMC HemeAutoSSWBC corrected for nucl RBC Auto (Bld) [#/Vol]7.9 E9/LNormal4.0 - 11.0 E9/LFTMC HemeAutoSSCHEMISTRYOrdered By: SYSTEM SYSTEM on 53-40-7089Ipoa T4 [Mass/Vol]0.58 ng/dLNormal0.58 - 1.64 ng/dL [facility] RemisolTSH Qn3.10 m[IU]/LNormal0.34 - 5.60 mcIU/mLFTMC RemisolCHEMISTRY Ordered By: Valeri German on 24-79-2556ZrO6d (Bld) [Mass fraction]5.9 %Normal <=5.9%[facility] ChemAutoSSCHEMISTRYOrdered By: SYSTEM SYSTEM on 80-20-9961Kbmd T4 [Mass/Vol]0.71 ng/dLNormal0.58 - 1.64 ng/dLFTMC RemisolTSH Qn3.77 m[IU]/LNormal 0.34 - 5.60 mcIU/mLFTMC RemisolCBC AUTO DIFFon 54-19-7447MSUH #0.0 103/ulNormal 0.0-0.1The [facility] CenterComment on above:Performed By: #### HIV12 #### [facility] [address] [address] [address] Edward GillBasophils/100 WBC (Bld)0.4 %Normal0.2-2.0[facility] Comment on above:Performed By: #### HIV12 #### [facility] [address] [address] [address] Edward Traore #0.1 103/ulNormal0.0-0.7The [facility] CenterComment on above: Performed By: #### HIV12 #### [facility] [address] [address] [address] Edward Calhounosinophils/100 WBC (Bld)1.3 %Normal0.9-7.0[facility] Comment on above:Performed By: #### HIV12 #### [facility] [address] [address] [address] Edward Calhounrythrocyte distribution width (RBC) [Ratio]16.6 %Critically high 11.0-15.0[facility] HealthComment on above:Performed By: #### HIV12 #### [facility] [address] [address] [address] Edward GillHematocrit (Bld) [Volume fraction]30.2 %Critically low36.0-48.0 The [facility] CenterComment on above:Performed By: #### HIV12 #### [facility] [address] [place] [address] Dr. Edward GillHemoglobin (Bld) [Mass/Vol]10.5 g/dLCritically low12.0-16.0The [facility] CenterComment on above:Performed By: #### HIV12 #### [facility] [address] [place] [address] Dr. Edward Ray #0.04 10e3/ulCritically high0.00-0.03The [facility] Comment on above:Performed By: #### HIV12 #### [facility] [address] [place] [address] Dr. Edward Ray %0.4 %Normal0.0-0.5The [facility] CenterComment on above: Performed By: #### HIV12 #### [facility] [address] [place] [address] Dr. Edward Velásquez #3.1 103/ulNormal1.2-3.8The [facility] CenterComment on above:Performed By: #### HIV12 #### [facility] [address] [place] [address] Dr. Edward Alvarezhocytes/100 WBC (Bld)34.2 %Jkffto39.5-60.0The [facility] CenterComment on above:Performed By: #### HIV12 #### [facility] [address] [place] [address] Dr. Edward SimmonsUAL DIFF REQNONormalThe [facility] CenterComment on above: Performed By: #### HIV12 #### [facility] [address] [place] [address] Dr. Edward De Leon (RBC) [Entitic mass]30.3 vaXrnahj10.7-34.0The [facility] CenterComment on above:Performed By: #### HIV12 #### [facility] [address] [place] [address] Dr. Edward June (RBC) [Mass/Vol]34.8 g/fUUixpxg35.9-35.2The [facility] CenterComment on above:Performed By: #### HIV12 #### [facility] [address] [place] [address] Dr. Edward JuneV (RBC) [Entitic vol]87.0 wFRtziwz03.0-99.0The [facility] Hospitalment on above:Performed By: #### HIV12 #### [facility] [address] [place] [address] Dr. Edward Rosas #0.7 103/ulNormal0.3-0.8The [facility] CenterComment on above:Performed By: #### HIV12 #### [facility] [address] [place] [address] Dr. Edward Ignacioocytes/100 WBC (Bld)7.5 %Normal1.7-12.0The [facility] Comment on above:Performed By: #### HIV12 #### [facility] [address] [place] [address] Dr. Edward Guevara #5.0 103/ulNormal1.4-6.5The [facility] CenterComment on above:Performed By: #### HIV12 #### [facility] [address] [place] [address] Dr. Edward Moralesutrophils/100 WBC (Bld)56.2 %Bfaiuu67.0-75.0The [facility] Hospitalment on above:Performed By: #### HIV12 #### [facility] [address] [place] [address] Dr. Edward Serranolet mean volume (Bld) [Entitic vol]9.8 fLNormal9.5-13.5The [facility] Hospitalment on above:Performed By: #### HIV12 #### [facility] [address] [place] [address] Dr. Edward GillPLT238 103/gxHigtwy971-578Jbx [facility] CenterComment on above: Performed By: #### HIV12 #### [facility] [address] [place] [address] Dr. Edward GillRBC3.47 106/ulCritically low4.20-5.40The [facility] Hospitalment on above:Performed By: #### HIV12 #### [facility] [address] [address] [address] Edward GillWBC9.0 103/ulNormal4.0-11.0The [facility] CenterComment on above: Performed By: #### HIV12 #### [facility] [address] [place] [address] Dr. Edward HardyTAL SCREENon 91-80-7206OLZSB SCREENNegativeSt. Elizabeth HospitalComment on above:Performed By: #### FETSCRN #### [facility] [address] [place] [address] Dr. Edward GillDIRECT COOMBSon 34-96-6633WVCDPV COOMBSNegKing's Daughters Medical Center OhioComment on above:Performed By: #### DIRCMB #### [facility] [address] [place] [address] Dr. Edward GillPOINT OF CARE GLUCOSEon 07-07-7599Fsgiiub [Mass/Vol]117 mg/dL Critically dcwk04-641Uhg [facility] CenterComment on above:Performed By: #### POCGLUC ####[facility] [address] [address]Dr. Edward GillTYPE AND SCREENon 81-41-2043VJES AND SCREENNegativeSt. Elizabeth HospitalComup health system on above:Performed By: #### TNS #### [facility] [address] [place] [address] Dr. Edward AlfaroC AUTO DIFFon 22-31-2332YCUP #0.0 103/ulNormal0.0-0.1The [facility] CenterComment on above:Performed By: #### HIV12 #### [facility] [address] [place] [address] Dr. Edward GillBasophils/100 WBC (Bld)0.2 %Normal0.2-2.0The [facility] Comment on above:Performed By: #### HIV12 #### [facility] [address] [place] [address] Dr. Leon ChangEO #0.0 103/ulNormal0.0-0.7The [facility] HospitalComment on above: Performed By: #### HIV12 #### [facility] [address] [place] [address] Dr. Edward Calhounosinophils/100 WBC (Bld)0.5 %Critically low0.9-7.0The [facility] CenterComment on above:Performed By: #### HIV12 #### [facility] [address] [place] [address] Dr. Edward Calhounrythrocyte distribution width (RBC) [Ratio]16.1 %Critically high 11.0-15.0The [facility] CenterComment on above:Performed By: #### HIV12 #### [facility] [address] [place] [address] Dr. Edward GillHematocrit (Bld) [Volume fraction]32.1 %Critically low36.0-48.0 The [facility] CenterComment on above:Performed By: #### HIV12 #### [facility] [address] [place] [address] Dr. Edward GillHemoglobin (Bld) [Mass/Vol]11.7 g/dLCritically low12.0-16.0The [facility] CenterComment on above:Performed By: #### HIV12 #### [facility] [address] [place] [address] Dr. Edward Ray #0.04 10e3/ulCritically high0.00-0.03The [facility] Comment on above:Performed By: #### HIV12 #### [facility] [address] [place] [address] Dr. Edward Ray %0.5 %Normal0.0-0.5The [facility] CenterComment on above: Performed By: #### HIV12 #### [facility] [address] [place] [address] Dr. Edward Velásquez #2.4 103/ulNormal1.2-3.8The [facility] CenterComment on above:Performed By: #### HIV12 #### [facility] [address] [place] [address] Dr. Yilan ChangLymphocytes/100 WBC (Bld)27.2 %Bylvtn13.5-60.0The [facility] CenterComment on above:Performed By: #### HIV12 #### [facility] [address] [place] [address] Dr. Edward SimmonsUAL DIFF REQNONormalThe [facility] CenterComment on above: Performed By: #### HIV12 #### [facility] [address] [place] [address] Dr. Edward June (RBC) [Entitic mass]30.0 vrEclnwn08.7-34.0The [facility] CenterComment on above:Performed By: #### HIV12 #### [facility] [address] [place] [address] Dr. Edward June (RBC) [Mass/Vol]36.4 g/dLCritically high29.9-35.2The [facility] CenterComment on above:Performed By: #### HIV12 #### [facility] [address] [place] [address] Dr. Edward June (RBC) [Entitic vol]82.3 iCFnqazr15.0-99.0The [facility] CenterComment on above:Performed By: #### HIV12 #### [facility] [address] [place] [address] Dr. Edward Rosas #0.7 103/ulNormal0.3-0.8The [facility] CenterComment on above:Performed By: #### HIV12 #### [facility] [address] [place] [address] Dr. Edward Ignacioocytes/100 WBC (Bld)7.7 %Normal1.7-12.0The [facility] Comment on above:Performed By: #### HIV12 #### [facility] [address] [place] [address] Dr. Edward Guevara #5.5 103/ulNormal1.4-6.5The [facility] CenterComment on above:Performed By: #### HIV12 #### [facility] [address] [place] [address] Dr. Edward GillNeutrophils/100 WBC (Bld)63.9 %Rncgnp57.0-75.0The [facility] Hospitalment on above:Performed By: #### HIV12 #### [facility] [address] [place] [address] Dr. Edward GillPlatelet mean volume (Bld) [Entitic vol]10.0 fLNormal9.5-13.5The [facility] CenterComment on above:Performed By: #### HIV12 #### [facility] [address] [place] [address] Dr. Edward GillPLT274 103/fkWibtyd251-463Wpc [facility] on above: Performed By: #### HIV12 #### [facility] [address] [place] [address] Dr. Edward GillRBC3.90 106/ulCritically low4.20-5.40The [facility] on above:Performed By: #### HIV12 #### [facility] [address] [place] [address] Dr. Edward GillWBC8.7 103/ulNormal4.0-11.0The [facility] on above: Performed By: #### HIV12 #### [facility] [address] [place] [address] Dr. Edward GillCovid-19 PCR ([facility])on 92-77-2524LOOZ-CoV-2 (COVID-19) RNA LELO+probe Ql (Unsp spec)Not detectedNormalNOT DETECTEDThe [facility] Comment on above:Result Comment: When diagnostic testing [...] for this test is supported by the [employer] Operator of Health and Human Service's declaration that [...] longer be used).Performed By: #### HIV12 #### [facility] [address] [address] [address] Edward GillDRUG SCREEN RAPID (URINE)on 95-52-6492OUPRhtpkbrxOfnzmbCLGABLXF [facility] HealthComment on above:Performed By: #### DRUGRPD ####[facility] [address] [address]Dr. Edward GillBAR NegativeNormalNEGATIVESumma HealthComment on above:Performed By: #### DRUGRPD ####[facility] [address] [place], [place] [address]Dr. Edward GillBUPNegativeNormalNEGATIVESumma HealthComment on above:Performed By: #### DRUGRPD ####[facility] [address] [place], [place] [address]Dr. Edward GillBZONegativeNormalNEGATIVESumma HealthComment on above:Performed By: #### DRUGRPD ####[facility] Egpafeej[address] [place], [place] [address]Dr. Edward GillCOCNegative NormalNEGATIVESumma HealthComment on above:Performed By: #### DRUGRPD ####[facility] G[address] [place], [place] [address]Dr. Edward GillCUT-OFFSSEE BELOWSt. Elizabeth HospitalComment on above:Result Comment: AMP (Amphetamine): 500ng/mL, BAR (Barbituates): 200 ng/mL, BZO (Benzodiazepines): 150 ng/mL, BUP (Buprenorphine): 10 ng/mL, INDIA (Cocaine): 150 ng/mL, mAMP (Methamphetamine): 500 ng/mL, MTD (Methadone): 200 ng/mL, OPI (Opiates): 100 ng/mL, OXY (Oxycodone): 100 ng/mL, PCP (Phencyclidine): 25 ng/mL, PPX (Propoxyphene): 300 ng/mL, THC (Cannabinoids): 50 ng/mL, TCA (Trycyclic Antidepressants): 300 ng/mLPerformed By: #### DRUGRPD ####[facility] [address] [place], [place] [address]Dr. Yilan ChangDRUG CUT HEADERDRUG CLASS TEST SYSTEM CUT-OFF CONCENTRATIONS ARE FOLLOWS:NormalThe [facility] HospitalComment on above:Performed By: #### DRUGRPD ####[facility] [address] [place], [place] [address]Dr. Alishalan ChangmAMP NegativeNormalNEGATIVELima City Hospital HospitalComment on above:Performed By: #### DRUGRPD ####[facility] [address] [place], [place] [address]Dr. Yihermelindo ChangMTDNegativeNormalNEGATIVELima City Hospital HospitalComment on above:Performed By: #### DRUGRPD ####[facility] [address] [place], [place] [address]Dr. Yilan ChangOPINegativeNormalNEGATIVELima City Hospital HospitalComment on above:Performed By: #### DRUGRPD ####[facility] [address] [place], [place] [address]Dr. Yilan ChangOXYNegative NormalNEGATIVELima City Hospital HospitalComment on above:Performed By: #### DRUGRPD ####[facility] [address] [place], [place] [address]Dr. Yilan ChangPCPNegativeNormalNEGATIVELima City Hospital HospitalComment on above: Performed By: #### DRUGRPD ####[facility] [address] [place], [place] [address]Dr. Yilan ChangPPXNegativeNormalNEGATIVELima City Hospital HospitalComment on above:Performed By: #### DRUGRPD ####[facility] [address]wu[address] [place], [place] [address]Dr. Yilan ChangTCANegative NormalNEGATIVESumma HealthComment on above:Performed By: #### DRUGRPD ####[facility] [address] [place], [place] [address]Nd. Edward WelchCNegativeNormalNEGATIVESumma HealthComment on above: Performed By: #### DRUGRPD ####[facility] [address] [place], [place] [address]Qa. Edward Sherwood PREG BIOPHY W NON STRESSon 27-13-6569CK PREG BIOPHY W NON STRESSEXAMINATION: US PREG [...] Electronically authenticated by: HUMERA KIM Date: 2022-05-06 19:05[facility] HospitalUS PREG BIOPHY W NON STRESSon 78-83-8590YC PREG BIOPHY W NON STRESSEXAMINATION: US PREG [...] Electronically authenticated by: ANGIE GALDAMEZ Date: 2022-05-01 16:16[facility] HospitalGROUP B STREP CULTUREon 04-23-2022. agalactiae Ag [...] Tetracycline >=16 R F Vancomycin =0.5 S FNormalSumma HealthComment on above:Performed By: #### GBSCX ####[facility] [address] [place], [place] [address]Lg. Edward Sherwood PREG BIOPHY W NON STRESSon 04-52-3303IE PREG BIOPHY W NON STRESSEXAMINATION: US PREG [...] Electronically authenticated by: HUMERA KIM Date: 2022-04-17 17:08NoMercy Health Fairfield HospitalUS PREG GROWTHon [id number] PREG GROWTHEXAMINATION: US PREG GROWTH HISTORY: Gestational [...] Electronically authenticated by: HUMERA KIM Date: 2022-04-17 16:49[facility] PREG BIOPHY W NON STRESSon 46-29-4781FQ PREG BIOPHY W NON STRESSEXAMINATION: US PREG [...] Electronically authenticated by: HUMERA KIM Date: 2022-04-12 08:[address] [place], [place] [address]GLUCOSE, BLOOD (POC)on 87-63-1085Jployym [Mass/Vol]106 mg/dL Xjqvbjhv09 - 99 mg/dLMarietta Osteopathic Clinic PREG BIOPHY W NON STRESSon 81-12-3929XT PREG BIOPHY W NON STRESSEXAMINATION: US PREG [...] Electronically authenticated by: HUMERA KIM Date: 2022-04-01 16:08[facility] PREG BIOPHY W NON STRESSon 65-16-9653ZI PREG BIOPHY W NON STRESSEXAMINATION: US PREG [...] Electronically authenticated by: HUMERA KIM Date: 2022-03-27 08:54NoMercy Health Fairfield HospitalUS PREG GROWTHon 03-21-9218VB PREG GROWTHEXAMINATION: US PREG GROWTH HISTORY: Maternal [...] Electronically authenticated by: HUMERA KIM Date: 2022-03-17 06:04[facility] HospitalHo 94-48-9652BUO9.586 uIU/mLNormal0.358-3.740Sum[facility] HealthComment on above:Performed By: #### HIV12 #### [facility] [address] [place] [address] Dr. Edward GillTYPE AND SCREENon 05-93-6215UUWU AND SCREENNegativeNoMercy Health Fairfield HospitalComment on above:Performed By: #### TNS #### [facility] [address] [address] [address] Edward Emanuel ACOG PANEL 2: 30 to 65on 02-21-2022..NormalThe [facility] Medical CenterComment on above:Result Comment: Performed at: WBPerformed By: #### [id number] ####[facility] [address] [address]Dr. Edward Koenig Gdln ACOG Ynhobnw22-68DycqavBlgMercy Health Fairfield HospitalComment on above:Performed By: #### [id number] ####[address] [address]Dr. Edward GillDIAGNOSIS:CommentRegency Hospital Toledo on above:Result Comment: NEGATIVE FOR INTRAEPITHELIAL LESION OR MALIGNANCY. Performed at: WBPerformed By: #### [id number] ####[address] [address]Dr. Edward GillHPV AptimaNegativeNormal NegativeThe [facility] on above:Result Comment: This nucleic acid amplification test detects fourteen high-risk HPV types (16,18,31,33,35,39,45,51,52,56,58,59,66,68) without differentiation. Performed at: =GPerformed By: #### [id number] ####[address] [address]Dr. Edward GillMethodology:CommentRegency Hospital Toledo on above:Result Comment: This liquid based ThinPrep(R) pap test was screened with the use of an image guided system. Performed at: WBPerformed By: #### [id number] ####[address] [address]Dr. Edward GillNote:CommentRegency Hospital Toledo on above:Result Comment: The Pap smear is a screening test designed to aid in the detection of premalignant and malignant conditions of the uterine cervix. It is not a diagnostic procedure and should not be used as the sole means of detecting cervical cancer. Both false-positive and false-negative reports do occur. . Performed at: WBPerformed By: #### [id number] ####[address] [address]Dr. Edward GillPerformed by:CommentRegency Hospital Toledo on above:Result Comment: Zenaida Diop, Food Service Hotel Runner (ASCP) Performed at: WBPerformed By: #### [id number] ####[address] [place] [address]Qd. Edward GillSpecimen adequacy:Comment NormalSumma HealthComment on above:Result Comment: Satisfactory for evaluation. No endocervical component is identified. Performed at: WBPerformed By: #### [id number] ####[facility] [address] [place], [place] [address]Dr. Edward GillCHLAMYDIA/GONOCOCCUS LELO (SWAB/URINE/PAPon 28-94-2039Mxxswfzan trachomatis, NAANegativeNormalNegativeLima City Hospital HospitalComment on above:Performed By: #### CT/NGNA ####[facility] [address] [place], [place] [address]Dr. Edward Gill Neisseria gonorrhoeae, NAANegativeNormalNegativeSumma HealthComment on above:Performed By: #### CT/NGNA ####[facility] [address]zh[address] [place], [place] [address]Dr. Edward GillVAGINITIS/VAGINOSIS DNA PROBEon 33-86-1135Ztwgrwo speciesNegativeNormalNegativeLima City Hospital HospitalComment on above:Performed By: #### VAGINT ####[facility] [address] [place], [place] [address]Dr. Edward GillGardnerella vaginalisNegativeNormal NegativeSumma HealthComment on above:Performed By: #### VAGINT ####[facility] [address] [place], [place] [address]Dr. Edward GillTrichomonas vaginalisNegativeNormalNegativeSumma Health Comment on above:Performed By: #### VAGINT ####[facility] [address] [place], [place] [address]Dr. Edward GillTSHon 78-86-0550OUH9.536 uIU/mLNormal0.358-3.740The [facility] CenterComment on above:Performed By: #### TSH ####[facility] [address] [place], [place] [address]Dr. Edward GillGLUCOSE - 1HRon 95-10-6377Bhzgkhu [Mass/Vol]160 mg/dLCritically high 74-106Summa HealthComment on above:Performed By: #### GLU1HR ####[facility] [address] [place], [place] [address]Gs. Edward Garciadru 98-47-3129CHI6.899 uIU/mLNormal0.358-3.740[facility] Comment on above:Performed By: #### HIV12 #### [facility] [address] [place], [place] [address] Dr. Edward Garcia, Maternalon 10-40-4872Zwbfnbedvk byUltBlue Mountain HospitalComment on above:Performed By: #### AAFPM #### [facility] [address] [address] Ship'S Captain: Pancho Cano MD [address] [id number] Ship'S Captain: Yosvany ArriagaCleveland Clinic Avon HospitalComment on above:Result Comment: Results for Estimated Due Date: 05 13 22Performed By: #### AAFPM #### [facility] [address] [place] [address] Ship'S Captain: Pancho Cano MD [facility] [address] [place] [address] Ship'S Captain: Danelle ArriagaUniversity Hospitals Parma Medical CenterComment on above:Performed By: #### AAFPM #### [facility] LoggedIn [address] [place] [address] Ship'S Captain: Pancho Cano MD [facility] [address] [place] [address] Ship'S Captain: Zhang Bledsoe MDGestat Age (exact)15 wks, 2 daysKnox Community HospitalComment on above:Performed By: #### AAFPM #### [facility] [address] [place] [address] Ship'S Captain: Pancho Cano MD [address] [id number] Ship'S Captain: Zhang Bledsoe MDIns ReFairfield Medical CenterComment on above:Performed By: #### AARAÚLM #### [facility] [address] [address] Ship'S Captain: Pancho Cano MD [address] [id number] Ship'S Captain: Zhang Bledsoe MDInterpretationScreen Fayette County Memorial HospitalComment on above:Result Comment: (NOTE) INTERPRETATION: SCREEN NEGATIVE for open spina bifida Neural Tube Defects (NTD) Negative Pre-Test Post-Test Cutoff Neural Tube Defects Risks 1:1030 1:2690 1:250 Comments: The risk of an open neural tube defect is less than the screening cut-off. This test was developed and its performance characteristics determined by [facility]. It has not been cleared or approved by the US Food and Drug Administration. This test was performed in a CLIA certified laboratory and is intended for clinical purposes.Performed By: #### ELIZABETM #### [address] [address] Ship'S Captain: Pancho Cano MD [address] [id number] Ship'S Captain: Osmar Arriagaternal Age at Del36.6 yrKnox Community HospitalComment on above:Performed By: #### ELIZABETM #### [facility] [address] Ship'S Captain: Pancho Cano MD [address] [id number] Ship'S Captain: Osmar Arriagaternal RaceNonblackKnox Community HospitalComment on above:Performed By: #### ELIZABETM #### [address] [place] [address] Ship'S Captain: Pancho Cano MD [address] [id number] Ship'S Captain: Osmar Arriagaternal Opvgua497.0 lbs.Knox Community HospitalComment on above:Performed By: #### AAFPM #### [facility] [address] [place] [address] Ship'S Captain: Pancho Cano MD [address] [address] Ship'S Captain: Ramírez Arriaga for AFP1.52NormAshtabula County Medical CenterComment on above:Performed By: #### AAFPM #### [facility] [address] [address] Ship'S Captain: Pancho Cano MD [address] [address] Ship'S Captain: SAMUEL Arriagaumber of FetusesSingletonNoUniversity Hospitals St. John Medical CenterComment on above:Performed By: #### AAFPM #### [address] [address] Ship'S Captain: Pancho Cano MD [address] [address] Ship'S Captain: Smith Arriaga'jaylan AFP35 ng/mLNormalSuburban Community Hospital & Brentwood HospitalComment on above:Performed By: #### AAFPM #### [facility] [address] [address] Ship'S Captain: Pancho Cano MD [facility] [address] [place] [address] Ship'S Captain: NIKITA ArriaganyCleveland Clinic Fairview Hospital Comment on above:Performed By: #### AAFPM #### [facility] [address] [place] [address] Ship'S Captain: Pancho Cano MD [address] [id number] Ship'S Captain: Gill Arriaga The University of Toledo Medical CenterComment on above:Result Comment: (NOTE) Initial sample Performed by [facility], [address] [place] [id number] www.[employer], Yayo Moncada MD, PHD, Lab. DirectorPerformed By: #### AAFPM #### [address] [address] Ship'S Captain: Pancho Cano MD [address] [id number] Ship'S Captain: Zhang Bledsoe MDAMedStar Good Samaritan [facility] 80-40-8200Pddvyei SmokingFulton County Health CenterComment on above:Performed By: #### AAFPM #### [facility] [address] [place] [address] Ship'S Captain: Pancho Cano MD [address] [address] Ship'S Captain: Marti ArriagaTriHealth Bethesda North Hospital Comment on above:Performed By: #### AAFPM #### [facility] [address] [place] [address] Ship'S Captain: Pancho Cano MD [address] [phone] Ship'S Captain: SHIVA ArriagaSelect Medical Specialty [facility] [place] Comment on above:Performed By: #### AAFPM #### [facility] [address] [address] Ship'S Captain: Pancho Cano MD [address] [phone] Ship'S Captain: Zhang Bledsoe, MDDonor EggINFORMATION NOT PROVIDEDKnox Community HospitalComment on above:Performed By: #### AAFPM #### [facility] [address] [place] [address] Ship'S Captain: Pancho Cano MD [facility] [address] [place] [address] Ship'S Captain: Zhang Bledsoe MDEstimated Due [id number] Community HospitalComment on above:Performed By: #### AAFPM #### [facility] [address] [place] [address] Ship'S Captain: Pancho Cano MD [facility] [address] [place] [address] Ship'S Captain: Zhang Bledsoe MDMonson Developmental Center HistoryNegativeKnox Community HospitalComment on above:Performed By: #### AAFPM #### [facility] [address] [place] [address] Ship'S Captain: Pancho Cano MD [facility] [address] [place] [address] Ship'S Captain: Zhang Bledsoe MDIn Vitro FertalizatINFORMATION NOT PROVIDEDMccullough-Hyde Memorial HospitalComment on above:Performed By: #### AAFPM #### [facility] [address] [place] [address] Ship'S Captain: Pancho Cano MD [facility] [address] [place] [address] Ship'S Captain: Zhang Bledsoe MDTHREE RIVERS MEDICAL [facility] [id number] Community HospitalComment on above:Performed By: #### AAFPM #### [facility] [address] [place] [address] Ship'S Captain: Pancho Cano MD [facility] [address] [place] [address] Ship'S Captain: Zhang Bledsoe MDMaternal [id number] Community HospitalComment on above:Performed By: #### AAFPM #### [facility] [address] [place] [address] Ship'S Captain: Pancho Cano MD [facility] [address] [place] [address] Ship'S Captain: Zhang Bledsoe MDMaternal Odienc493HwaptjRnojxKnox Community HospitalComment on above:Performed By: #### AAFPM #### [facility] [address] [place] [address] Ship'S Captain: Pancho Cano MD [facility] [address] [place] [address] Ship'S Captain: BAKARI Arriagaonochorionic TwinsCleveland Clinic Mentor HospitalComment on above:Performed By: #### AAFPM #### [facility] [address] [place] [address] Ship'S Captain: aPncho Cano MD [facility] [address] [place] [address] Ship'S Captain: Zhang Bledsoe A[facility] CHEROK[facility] MEDICAL CENTERatient Weight UnitsLBSKnox Community HospitalComment on above:Performed By: #### AAFPM #### [facility] [address] [place] [address] Ship'S Captain: Pancho Cano MD [facility] [address] [place] [address] Ship'S Captain: LUIS Arriagaace (Maternal)Cincinnati Shriners HospitalComment on above:Performed By: #### AAFPM #### [facility] [address] [place] [address] Ship'S Captain: Pancho Cano MD [facility] [address] [place] [address] Ship'S Captain: Jay Arriaga SpecimenINFORMATION NOT PROVIDEDMccullough-Hyde Memorial HospitalComment on above:Performed By: #### AAFPM #### [facility] [address] [place] [address] Ship'S Captain: Pancho Cano MD [facility] [address] [place], [place] [id number] Ship'S Captain: Zhang Bledsoe MDValproic/CarbamazepINFORMATION NOT PROVIDEDMccullough-Hyde Memorial HospitalComment on above:Performed By: #### AAFPM #### [address] [address] Ship'S Captain: Pancho Cano MD [address] [address] Ship'S Captain: Zhang Bledsoe MDAFP Single Marker Scrn, Maternal, Serumon 67-47-7844NacHvzlpt[address] [place], [place] [address]Carrier Study Non-ProMedicaon 68-31-8540RpgOvkadc[address] [place] [address] MISCELLANEOUS TESTINGon 49-47-0721Ryxj Out ReportFWD TO [facility] [place] TRK [address] [place], [place] [address]Test NameNATERA SOUTHAMPTON MEMORIAL HOSPITALMiscellaneouson 41-09-2466Zfke Out ReportFWD TO [facility] [place] TRK 5848 6234 19Knox Community HospitalComment on above:Performed By: #### CMIS #### [facility] [address] [place] [address] Ship'S Captain: Pancho Cano MDTest Bellevue HospitalComment on above:Performed By: #### CMIS #### [facility] [address] [place] [address] Ship'S Captain: Pancho Cano MDHEEulalio B SURFACE ANTIGEN SCREENon 17-61-1139QJfFs ScreenNegativeNormalNegativeSumma HealthComment on above:Performed By: #### HIV12 #### [facility] [address] [address] [address] Edward Dahl C VIRUS AB W/ REFLEX QUANTon 27-15-4627TPR AB<0.1Normal 0.0-0.9The [facility] on above:Performed By: #### HCVPCRR ####[facility] [address] [address]DrLazara GillInterpretation:CommentNormalThe [facility] CenterComment on above: Result Comment: Negative Not infected with HCV, unless recent infection is suspected or other evidence exists to indicate HCV infection.Performed By: #### HCVPCRR ####[facility] [address] [place], [place] [address]Dr. Edward GillHIV 1 AND 2 WITH REFLEXon 25-70-1222TRY Screen 4th Generation wRfx Non-ReactiveNormalNon ReactiveThe [facility] on above:Result Comment: HIV Negative HIV-1/HIV-2 antibodies and HIV-1 p24 antigen were NOT detected. There is no laboratory evidence of HIV infection.Performed By: #### HIV12 #### [facility] [address] [address] [address] Edward GillRPR QUANTon 97-95-8968Rgife Plasma Reagin, QuantNon-Reactive NormalNonRea<1:1[facility] on above:Result Comment: Please Note: This test does not meet current guidelines for screening and diagnosis of syphilis. This test is intended for following treatment response in patients being treated for syphilis infection. To screen for syphilis infection, a reflex cascade that includes both RPR and a treponema-specific assay should be utilized, such as Treponema pallidum (Syphilis) Screening [place] (590532) or Rapid Plasma Reagin (RPR) Test With Reflex to Quantitative RPR and Confirmatory Treponema pallidum Antibodies (876198).Performed By: #### RPRQ ####[facility] [address] [address]Dr. Edward GillRUBELLA AB IGG on 85-83-3074Pniobja Antibodies, IgG1.02 indexNormalImmune >0.99The [facility]ultman Hospitalment on above:Result Comment: Non-immune <0.90 Equivocal 0.90 - 0.99 Immune >0.99Performed By: #### RUBIGG ####[facility] [address] [address]Dr. Edward Engle AUTO DIFFon 06-87-2829CZGD # 0.0 103/ulNormal0.0-0.1The [facility] CenterComment on above:Performed By: #### HIV12 #### [facility] [address] [place] [address] Dr. Edward GillBasophils/100 WBC (Bld)0.3 %Normal0.2-2.0[facility] Comment on above:Performed By: #### HIV12 #### [facility] [address] [place] [address] Dr. Edward Traore #0.1 103/ulNormal0.0-0.7The [facility] CenterComment on above: Performed By: #### HIV12 #### [facility] [address] [place] [address] Dr. Edward Calhounosinophils/100 WBC (Bld)0.6 %Critically low0.9-7.0The [facility]man Hospitalment on above:Performed By: #### HIV12 #### [facility] [address] [place] [address] Dr. Edward Calhounrythrocyte distribution width (RBC) [Ratio]14.1 %Rhpdrr27.0-15.0 The [facility] CenterComment on above:Performed By: #### HIV12 #### [facility] [address] [place] [address] Dr. Edward GillHematocrit (Bld) [Volume fraction]36.2 %Mwuttn89.0-48.0The [facility] CenterComment on above:Performed By: #### HIV12 #### [facility] [address] [place] [address] Dr. Edward GillHemoglobin (Bld) [Mass/Vol]12.5 g/sGEwcxsq71.0-16.0The [facility] CenterComment on above:Performed By: #### HIV12 #### [facility] [address] [place] [address] Dr. Edward Ray #0.05 10e3/ulCritically high0.00-0.03The [facility] Comment on above:Performed By: #### HIV12 #### [facility] [address] [place] [address] Dr. Edward Ray %0.4 %Normal0.0-0.5The [facility] CenterComment on above: Performed By: #### HIV12 #### [facility] [address] [place] [address] Dr. Edward Velásquez #2.7 103/ulNormal1.2-3.8The [facility] CenterComment on above:Performed By: #### HIV12 #### [facility] [address] [place] [address] Dr. Edward Alvarezhocytes/100 WBC (Bld)23.2 %Xtnrlf66.5-60.0The [facility] CenterComment on above:Performed By: #### HIV12 #### [facility] [address] [place] [address] Dr. Edward Antony DIFF REQNONormalThe [facility] CenterComment on above: Performed By: #### HIV12 #### [facility] [address] [place] [address] Dr. Edward June (RBC) [Entitic mass]30.6 veLipmcc76.7-34.0The [facility] CenterComment on above:Performed By: #### HIV12 #### [facility] [address] [place] [address] Dr. Edward June (RBC) [Mass/Vol]34.5 g/aOPjqapn91.9-35.2The [facility] CenterComment on above:Performed By: #### HIV12 #### [facility] [address] [place] [address] Dr. Edward June (RBC) [Entitic vol]88.7 bDUpsrhl74.0-99.0The [facility] CenterComment on above:Performed By: #### HIV12 #### [facility] [address] [place] [address] Dr. Edward Rosas #0.7 103/ulNormal0.3-0.8The [facility] CenterComment on above:Performed By: #### HIV12 #### [facility] [address] [place] [address] Dr. Edward Ignacioocytes/100 WBC (Bld)5.8 %Normal1.7-12.0The [facility] Comment on above:Performed By: #### HIV12 #### [facility] [address] [place] [address] Dr. Edward Guevara #8.0 103/ulCritically high1.4-6.5The [facility] Comment on above:Performed By: #### HIV12 #### [facility] [address] [place] [address] Dr. Edward Moralesutrophils/100 WBC (Bld)69.7 %Ynmjbp33.0-75.0The [facility] CenterComment on above:Performed By: #### HIV12 #### [facility] [address] [place] [address] Dr. Edward Medellin mean volume (Bld) [Entitic vol]9.3 fLCritically low 9.5-13.5The [facility] CenterComment on above:Performed By: #### HIV12 #### [facility] [address] [place] [address] Dr. Edward GillPLT338 103/sdCwiqfz494-198Iif [facility] CenterComment on above: Performed By: #### HIV12 #### [facility] [address] [place] [address] Dr. Edward GillRBC4.08 106/ulCritically low4.20-5.40The [facility] CenterComment on above:Performed By: #### HIV12 #### [facility] [address] [place] [address] Dr. Edward GillWBC11.4 103/ulCritically high4.0-11.0The [facility] Hospitalment on above:Performed By: #### HIV12 #### [facility] [address] [place] [address] Dr. Edward GillCULTURE URINEon 65-08-5665QMXXKWE URINECulture Observations: LIGHT GROWTH OF MIXED GENITAL MARTHA. NO POTENTIAL PATHOGENS SEEN.NormalThe [facility] CenterComment on above:Performed By: #### URCX #### [facility] [address] [place] [address] Dr. Edward GillGLYCOHEMOGLOBIN A1Con 77-73-5780GOD RECOMMENDATIONSEE BELOWNormal The [facility] CenterComup health system on above:Result Comment: ADA RECOMMENDED LIMIT 4.0 - 6.0 ADA THERAPEUTIC TARGET < 7.0 ACTION SUGGESTED > 7.0Performed By: #### A1C #### [facility] [address] [place] [address] Dr. Edward GillGlucose [Mass/Vol]117 mg/dLNormalThe [facility] CenterComup health system on above:Performed By: #### A1C #### [facility] [address] [place] [address] Dr. Edward GillHbA1c (Bld) [Mass fraction]5.7 %Normal4.5-6.2The [facility] Hospitalment on above:Performed By: #### A1C #### [facility] [address] [place] [address] Dr. Edward Nair BOX TEST PT SEND OUTon 64-90-0192PDGM TO REF LAB10/25/2021 NormalThe [facility] on above:Performed By: #### HIV12 #### [facility] [address] [place] [address] Dr. Edward GillTSHodru 55-33-8673JXR3.700 uIU/mLNormal0.358-3.740The [facility] Hospitalment on above:Performed By: #### TSH ####[facility] [address] [address]Dr.Yilan GillTYPE AND SCREEN on 85-13-5989ZQND AND SCREENNegativeSt. Elizabeth HospitalComment on above: Performed By: #### TNS ####[facility] [address] [address]Dr.Yilan Sherwood PREG TVon 45-53-4288YH PREG TV EXAMINATION: US PREG TV HISTORY: [...] Electronically authenticated by: HUMERA KIM Date: 2021-09-23 10:27St. Elizabeth HospitalPREG QUANT HCGon 43-59-6319ORB ZPOSQ8569 mIU/mLNormalSumma HealthComment on above:Performed By: #### HIV12 #### [facility] [address] [address] [address] Edward GillHCWily RANGESEE BELOWSt. Elizabeth HospitalComment on above: Result Comment: 5-50 0-1 WEEK 40-300 1-2 WEEKS 100-1,000 2-3 WEEKS 500-6,000 3-4 WEEKS 5,000-200,000 1-2 MONTHS 10,000-100,000 2-3 MONTHS 3,000-50,000 2ND TRIMESTER 1,000-50,000 3RD TRIMESTERPerformed By: #### HIV12 #### [facility] [address] [address] [address] Edward GillCHEMISTRYOrdered By: SYSTEM SYSTEM on 65-28-1030Rgqks gap [Moles/Vol]15 mmol/LNormal6 - 16 mEq/LFTMC RemisolCalcium [Mass/Vol]9.5 mg/dL Normal8.9 - 11.1 mg/dLFTMC RemisolChloride [Moles/Vol]102 mmol/TFodldw239 - 111 mmol/LFTMC RemisolCO2 [Moles/Vol]22 mmol/YUyvlwy04 - 31 mmol/LFTMC Remisol Creatinine [Mass/Vol]0.9 mg/dLNormal0.5 - 1.3 mg/dLFTMC RemisolGFR/1.73 sq M.predicted among blacks MDRD (S/P/Bld) [Vol rate/Area]mL/min/1.73 i6Emxdwj >=59mL/min/1.73 m2FT Chem SGFR/1.73 sq M.predicted among non-blacks MDRD (S/P/Bld) [Vol rate/Area]mL/min/1.73 s8Pastbm>=59mL/min/1.73 m2FT Chem S Glucose [Mass/Vol]85 mg/fURvqtre31 - 199 mg/dLFT RemisolPotassium [Moles/Vol] 3.9 mmol/LNormal3.5 - 5.3 mmol/LFTMC RemisolSodium [Moles/Vol]135 mmol/LNormal 135 - 145 mmol/LFTMC RemisolUrea nitrogen [Mass/Vol]6 mg/dLNormal5 - 21 mg/dL FT RemisolUrea nitrogen/Creatinine [Mass ratio]7 mg/mgLow10 - 20FTMC Remisol HEMATOLOGYOrdered By: SYSTEM SYSTEM on 00-98-9565Ofxxdtsoh/100 WBC (Bld)0.5 % Normal0.0 - 2.0 %[facility] HemeAutoSSBasophils/Leukocytes Auto (Bld) [Pure # fraction]0.0 E9/LNormal0.0 - 0.2 E9/LFTMC HemeAutoSSEosinophils/100 WBC (Bld)0.6 %Normal0.0 - 8.0 %[facility] HemeAutoSSEosinophils/Leukocytes Auto (Bld) [Pure # fraction]0.1 E9/LNormal0.0 - 0.5 E9/LFTMC HemeAutoSSLymphocytes/100 WBC (Bld) 36.8 %Dyqpvi03.0 - 50.0 %[facility] HemeAutoSSLymphocytes/Leukocytes Auto (Bld) [Pure # fraction]2.9 E9/LNormal1.0 - 4.0 E9/LFTMC HemeAutoSSMonocytes/100 WBC (Bld)8.7 %Normal4.0 - 14.0 %[facility] HemeAutoSSMonocytes/Leukocytes Auto (Bld) [Pure # fraction]0.7 E9/LNormal0.2 - 1.0 E9/LFTMC HemeAutoSSNeutrophils/100 WBC (Bld) 53.4 %Wuvrxg81.0 - 75.0 %[facility] HemeAutoSSNeutrophils/Leukocytes Auto (Bld) [Pure # fraction]4.2 E9/LNormal2.0 - 7.5 E9/LFTMC HemeAutoSSHEMATOLOGYOrdered By: Isha Yates on 26-86-9331Bffrzqrvjxa distribution width (RBC) [Ratio]14.6 %High10.9 - 14.2 %[facility] HemeAutoSSHematocrit (Bld) [Volume fraction]36.4 %Normal 34.0 - 46.0 %[facility] HemeAutoSSHemoglobin (Bld) [Mass/Vol]12.6 g/tLUkfyyv11.0 - 16.0 gm/dLFTMC HemeAutoSSMCH (RBC) [Entitic mass]29.9 mmOwpwbe62.0 - 34.0 pgFTMC HemeAutoSSMCHC (RBC) [Mass/Vol]34.6 g/aWLnuybx72.4 - 36.0 gm/dLFTMC HemeAutoSS MCV (RBC) [Entitic vol]86.6 lOQuqzdy97.0 - 100.0 fLFTMC HemeAutoSSPlatelet mean volume (Bld) [Entitic vol]8.2 fLNormal6.4 - 10.8 fLFTMC HemeAutoSSPlatelets (Bld) [#/Vol]367.0 E9/OHjacbs001.0 - 500.0 E9/LFTMC HemeAutoSSRBC (Bld) [#/Vol] 4.2 E12/LLow4.3 - 5.9 E12/LFTMC HemeAutoSSWBC corrected for nucl RBC Auto (Bld) [#/Vol]7.9 E9/LNormal4.0 - 11.0 E9/LFTMC HemeAutoSSPREG QUANT HCGon 08-29-2021 HCG ZZWFE796 mIU/mLNormalSumma HealthComment on above:Performed By: #### PREGQNT ####[facility] [address] [address]Dr. Edward MICHAELAvita Health System Bucyrus HospitalComment on above:Result Comment: 5-50 0-1 WEEK 40-300 1-2 WEEKS 100-1,000 2-3 WEEKS 500- 6,000 3-4 WEEKS 5,000-200,000 1-2 MONTHS 10,000-100,000 2-3 MONTHS 3,000-50,000 2ND TRIMESTER 1,000-50,000 3RD TRIMESTERPerformed By: #### PREGQNT ####[facility] [address] [place], [place] [address]Dr. Edward GillPREWily QUANT HCGon 78-78-6844WJO QUANT99 mIU/mLNormalSumma HealthComment on above:Performed By: #### HIV12 #### [facility] [address] [place] [address] Dr. Edward MORA SCCI Hospital LimaComment on above: Result Comment: 5-50 0-1 WEEK 40-300 1-2 WEEKS 100-1,000 2-3 WEEKS 500-6,000 3-4 WEEKS 5,000-200,000 1-2 MONTHS 10,000-100,000 2-3 MONTHS 3,000-50,000 2ND TRIMESTER 1,000-50,000 3RD TRIMESTERPerformed By: #### HIV12 #### [facility] [address] [place] [address] Dr. Edward Cross QUANT HCGon 07-77-9229SPF QUANT37 mIU/mLNProtestant Deaconess HospitalComment on above:Performed By: #### PREGQNT ####[facility] [address] [place], [place] [address]Dr. Edward Lim [facility] - AndersonComment on above:Result Comment: 5-50 0-1 WEEK 40-300 1-2 WEEKS 100-1,000 2-3 WEEKS 500-6,000 3-4 WEEKS 5,000-200,000 1-2 MONTHS 10,000-100,000 2-3 MONTHS 3,000-50,000 2ND TRIMESTER 1,000-50,000 3RD TRIMESTERPerformed By: #### PREGQNT ####[facility] [address] [place], [place] [address]HtLazara Leon ChangCHEMISTRYOrdered By: SYSTEM SYSTEM on 50-54-6927Fmqgoio [Mass/Vol]4.5 g/dLNormal3.3 - 5.0 gm/dLFTMC Remisol Albumin/Globulin [Mass ratio]1.2 {ratio}Normal1.1 - 2.2FTMC RemisolALP [Catalytic activity/Vol]53 [iU]/sBixlvp08 - 98 Int._Unit/LFTMC RemisolALT No additional P-5'-P [Catalytic activity/Vol]24 [iU]/dNormal6 - 46 Int._Unit/LFTMC RemisolAnion gap [Moles/Vol]13 mmol/LNormal6 - 16 mEq/LFTMC RemisolAST [Catalytic activity/Vol]20 [iU]/dNormal5 - 43 Int._Unit/LFTMC RemisolBilirubin [Mass/Vol]0.6 mg/dLNormal0.0 - 1.1 mg/dLFTMC RemisolCalcium [Mass/Vol]9.4 mg/dL Normal8.9 - 11.1 mg/dLFTMC RemisolChloride [Moles/Vol]97 mmol/QDkx833 - 111 mmol/LFTMC RemisolCO2 [Moles/Vol]24 mmol/MFyxuwn14 - 31 mmol/LFTMC Remisol Creatinine [Mass/Vol]0.8 mg/dLNormal0.5 - 1.3 mg/dLFTMC RemisolGFR/1.73 sq M.predicted among blacks MDRD (S/P/Bld) [Vol rate/Area]mL/min/1.73 c2Qusbkr >=59mL/min/1.73 m2FTMC Chem SGFR/1.73 sq M.predicted among non-blacks MDRD (S/P/Bld) [Vol rate/Area]mL/min/1.73 f1Sqrhda>=59mL/min/1.73 m2FT Chem S Globulin (S) [Mass/Vol]3.7 g/dLNormal1.4 - 4.0 gm/dLFTMC RemisolGlucose [Mass/Vol]74 mg/aHIjaooe67 - 199 mg/dLFTMC RemisolMagnesium [Mass/Vol]2.0 mg/dL Normal1.3 - 2.4 mg/dLFTMC RemisolPotassium [Moles/Vol]3.5 mmol/LNormal3.5 - 5.3 mmol/LFTMC RemisolProtein [Mass/Vol]8.2 g/dLHigh6.0 - 7.8 gm/dLFTMC Remisol Sodium [Moles/Vol]130 mmol/QNip456 - 145 mmol/LFTMC RemisolTSH Qn4.56 m[IU]/L Normal0.34 - 5.60 mcIU/mLFTMC RemisolUrea nitrogen [Mass/Vol]7 mg/dLNormal5 - 21 mg/dLFTMC RemisolUrea nitrogen/Creatinine [Mass ratio]9 mg/mgLow10 - 20FTMC RemisolHEMATOLOGYOrdered By: SYSTEM SYSTEM on 26-29-7505Lrleuyine/100 WBC (Bld) 0.3 %Normal0.0 - 2.0 %[facility] HemeAutoSSBasophils/Leukocytes Auto (Bld) [Pure # fraction]0.0 E9/LNormal0.0 - 0.2 E9/LFTMC HemeAutoSSEosinophils/100 WBC (Bld)0.5 %Normal0.0 - 8.0 %[facility] HemeAutoSSEosinophils/Leukocytes Auto (Bld) [Pure # fraction]0.0 E9/LNormal0.0 - 0.5 E9/LFTMC HemeAutoSSLymphocytes/100 WBC (Bld) 35.9 %Zwmveg84.0 - 50.0 %[facility] HemeAutoSSLymphocytes/Leukocytes Auto (Bld) [Pure # fraction]3.2 E9/LNormal1.0 - 4.0 E9/LFTMC HemeAutoSSMonocytes/100 WBC (Bld)8.8 %Normal4.0 - 14.0 %[facility] HemeAutoSSMonocytes/Leukocytes Auto (Bld) [Pure # fraction]0.8 E9/LNormal0.2 - 1.0 E9/LFTMC HemeAutoSSNeutrophils/100 WBC (Bld) 54.5 %Eqnakk40.0 - 75.0 %[facility] HemeAutoSSNeutrophils/Leukocytes Auto (Bld) [Pure # fraction]4.8 E9/LNormal2.0 - 7.5 E9/LFTMC HemeAutoSSHEMATOLOGYOrdered By: Trena Castro on 55-67-2188Mwdpupzqwrf distribution width (RBC) [Ratio]14.1 % Jdsxei95.9 - 14.2 %[facility] HemeAutoSSHematocrit (Bld) [Volume fraction]38.5 %Normal 34.0 - 46.0 %[facility] HemeAutoSSHemoglobin (Bld) [Mass/Vol]13.1 g/tBRffemp69.0 - 16.0 gm/dLFTMC HemeAutoSSMCH (RBC) [Entitic mass]29.4 dhYokyhr29.0 - 34.0 pgFTMC HemeAutoSSMCHC (RBC) [Mass/Vol]34.1 g/vFLeaisr76.4 - 36.0 gm/dLFTMC HemeAutoSS MCV (RBC) [Entitic vol]86.0 dSJaqnvn36.0 - 100.0 fLFTMC HemeAutoSSPlatelet mean volume (Bld) [Entitic vol]8.3 fLNormal6.4 - 10.8 fLFTMC HemeAutoSSPlatelets (Bld) [#/Vol]334.0 E9/XWrlsrl975.0 - 500.0 E9/L[facility] HemeAutoSSRBC (Bld) [#/Vol] 4.5 E12/LNormal4.3 - 5.9 E12/LFT[facility] HemeAutoSSWBC corrected for nucl RBC Auto (Bld) [#/Vol]8.9 E9/LNormal4.0 - 11.0 E9/L[facility] HemeAutoSSOB/FLEET SALES MANAGER - Office Visiton [phone]/FLEET SALES MANAGER - Office VisitChief ComplaintComplains of: heavy bleeding Declines pulmonary function technologist, Susie Salomon, ROSE History of Present IllnessSanna [...] stroke 07/2017 PSH as above POB- 2007 [id number] 17week loss subchorionic h bqmsyhwrm3204 39weeks bleeding at 5weeks for 2 weeks diet 2130-7926 calories exercise none 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 Review [...] History History of Oral Surgery Tooth Extraction [place] Family History No pertinent family history Family history of cerebrovascular accident (CVA) (V17.1) (Z82.3) Family history of diabetes mellitus (V18.0) (Z83.3) Family history of cerebrovascular accident (CVA) (V17.1) (Z82.3) Family history of cerebrovascular accident (CVA) (V17.1) (Z82.3) Allergies No Known Drug Allergies Recorded By: Susie Salomon; 11/08/2017 4:19:42 PM Current Meds Ciprofloxacin HCl - 500 MG Oral Tablet;Ther apy: 15Qvj9641 to Recorded Dispense: 0 Days ; #: Sufficient Tablet; Refill: 0; BUBBA = N; Record; Last Updated By: Susie Salomon; 11/08/2017 4:19:42 PM Plavix 75 MG Oral Tablet;Therapy: 83Mkl2996 to Recorded Dispense: 0 Days ; #: Sufficient Tablet; Refill: 0; BUBBA = N; Record; Last Updated By: Susie Salomon; 11/08/2017 4:19:42 PM Provera 10 MG Oral Tablet;Therapy: 78Cha3663 to Recorded Dispense: 0 Days ; #: Sufficient Tablet; Refill: 0; BUBBA = N; Record; Last Updated By: Susie Salomon; 11/08/2017 4:19:42 PM Vitals Vital Signs Recorded: 08Nov2017 04:29BTTubwwobq600Txqecfsij21Nybzvm0 ft 6 shIgxbqf248 lb BMI Oomfjayupb01.57BSA Calculated1.8GEM39Nxp8704Rawf Scale6-7 Physical ExamConstitutional: Alert and in no acute distress. Well developed, well nourished. Head and Face: Head and face: Normal. Psychiatric: Alert and oriented x 3. Affect normal to patient baseline. Mood: Appropriate. Diagnoses/Problems Anemia (285.9) (D64.9) Asthma (493.90) (J45.909) Depression with anxiety (300.4) (F41.8) History of Oral Surgery Tooth Extraction [place] No pertinent family history : Mother [...] GIDeclines STI testing todayWeight gain, offered a air marshal consult and she declined. Encouraged exercise. Signatures Electronically signed by : RICHARD Ulrich; Nov 12 2017 8:46PM EST (Author)NormalUH TouchworksAntiphospholipid Abs IgG/IgMon 68-55-2593Immuvaltyyakyatg Ab-RaK519 GPLCritically high0-14[facility] Medical CenterComment on above:Result Comment: INTERPRETIVE INFORMATION: High- Specificity Antiphospholipid Antibody,IgG14 GPL or less......Vrqixxxd17 26 GPL.........Indeterminate Suggest repeat testing in 12 weeks27 GPL or greater. ..PositiveHigh-specificity antiphospholipid IgG and IgM antibodies are directedagainsta mixture of phosphatidylserine, phosphatidic acid, and beta- 2glycoprotein 1antigens. These antibodies are more specific than cardiolipin IgG andIgMantibodies in the diagnosis of antiphospholipid syndrome (APS). Antiphospholipid Ab-IgM[address] [place], [place] [address]Comment on above:Result Comment: INTERPRETIVE INFORMATION: High-Specificity Antiphospholipid Antibody,IgM14 MPL or less......Bcfeetsj38 37 MPL.........Indeterminate Suggest repeat testing in 12 weeks38 MPL or greater. ..PositiveHigh-specificity antiphospholipid IgG and IgM antibodies are directedagainsta mixture of phosphatidylserine, phosphatidic acid, and beta- 2glycoprotein 1antigens. These antibodies are more specific than cardiolipin IgG andIgMantibodies in the diagnosis of antiphospholipid syndrome (APS).Performed by [facility],[address] [place] [id number] cof.[employer], Zhang Bledsoe MD - Lab. DirectorPINON HEALTH CENTER Miscellaneous test 1on 05-28-2017 Miscellaneous Test 1SEE NOTENoMt. San Rafael HospitalComment on above: Result Comment: Test name [...] Additional information and recommendations for testingmay befound [email or web address] [email or web address].html.Performed by [facility],[address] [facility] [address] amg.[employer],Zhang Bledsoe MD - Lab. DirectorCardiolipin Antibodies, IgA, IgG, IgMon 60-18-9113Byudhumvxne Ab IgA0 APLNormal0-11[facility] Medical CenterComment on above:Result Comment: INTERPRETIVE INFORMATION: Cardiolipin Antibodies, IgA0-11 APL: Naslpeib51-78 APL: In oyjljrldoeu72-37 APL: Low to Moderately Gizjmcag24 APL or above: High PositivePerformed by [facility],[address] [facility] [place] [address] cyk.[employer], Zhang Bledsoe MD - Lab. DirectorCardiolipin Ab IgG 111 GPLCritically high0-[facility] Medical CenterComment on above:Result Comment: INTERPRETIVE INFORMATION: Anti-Cardiolipin IgG Ab0-14 GPL: Iirqgwya08- 19 GPL: Przqcdpgzfbye09-95 GPL: Low to Moderately Btcyilzi12 GPL or above: High PositiveThe persistent presence [...] other criteria phospholipid antibody tests.Cardiolipin Ab IgM10 MPLNormal0-12[facility] Medical CenterComment on above:Result Comment: INTERPRETIVE INFORMATION: Anti-Cardiolipin IgM0-12 MPL: Sytldkfs35-62 MPL: Sykdljsrfarvf21-63 MPL: Low to Moderately Ecnhwquq02 MPL or above: High PositiveThe persistent presence [...] and/orothercriteria phospholipid antibody tests.Jennifer-Simpson Virus by PCRon 62-30-6829Tyxzngx Simpson Virus by PCRNot DetectedNoMt. San Rafael HospitalComment on above:Result Comment: NOT DETECTED - A negative result does not rule out thepresence of PCR inhibitors inthe patient specimen or assayspecific nucleic acid in concentrations below the level ofdetection bythe assay.INTERPRETIVE INFORMATION: Jennifer Simpson Virus by PCRTest developed and characteristics determined by [facility]. SeeCompliance Statement A: [employer]/CSPerformed by [facility],[address] [facility] [place] [address] vnk.[employer], Zhang Bledsoe MD - Lab. DirectorEpsnewton medical center Simpson Virus SourceCSFSedgwick County Memorial HospitalOligoclonal Band Profileon 36-82-9188Sabdtyy1312 mg/lHUrxfsq9914-7615JcxitGood Samaritan Medical CenterAlbumin 5.2 ratioNormal0.0-9.0[facility] Medical CenterAlbumin, CSF20 mg/dLNormal 0-35[facility] CenterCSF IgG Synthesis Rate<0.0Normal<=8.0[facility] CenterCSF Oligoclonal BandsNegativeNormalNegativeGood Samaritan Medical CenterCSF Oligoclonal Bands Number0 BandsNormal0-1MSaint Joseph HospitalGlobulin1060 mg/wFGyfmca512-3686NkjigGood Samaritan Medical Center Comment on above:Result Comment: REFERENCE INTERVAL: Immunoglobulin GAccess complete set of age- and/or gender-specific reference intervalsforthis test in the [facility] ([employer]).IgG Index0.45 ratioNormal 0.28-0.66[facility] Medical CenterImmunoglobulin G CSF2.5 mg/dLNormal0.0-6.0 [facility] Medical CenterINR Coag RelTime (Bld)0.12 {INR}Normal0.09-0.25 [facility] Medical CenterInterpretationSee NoteSedgwick County Memorial HospitalComment on above:Result Comment: Isoelectric focusing/immunofixation reveals no oligoclonal bands ineitherthe CSF orthe serum. This is considered to be a negative result foroligoclonal bands. Approximately 5 percentof patients with clinicallydefinitive multiple sclerosis will have a negative result.Performed by [facility],[address] [place] [address] eus.[employer], Zhang Bledsoe MD - Lab.DirectorMyelin Basic Protein, CSFon 59-23-5362Vgjtky Basic Protein1.82 ng/mLNormal0.00-5.50[facility] Medical CenterComment on above:Result Comment: INTERPRETIVE INFORMATION: Myelin Basic ProteinTest developed and characteristics determined by [facility]. SeeCompliance Statement D: Oony.RADEUM/CSPerformed by [facility],[address] [facility], [place] [address] fxe.[employer], Zhang Bledsoe MD - Lab. [facility] Miscellaneous test 151-08-9984Hohlsgb Prompt 14184QafnkaCxfkySedgwick County Memorial HospitalComment on above:Result Comment: Corrected result; [place] [id number] on 05/25/2017 at 13:14 by V/AUT [facility] Miscellaneous test 1on 12-03-9694Lwhybak Nqeboo76740EtppcyVdgsmSedgwick County Memorial HospitalComment on above:Result Comment: DS DNACSF Cell Counton 05-25-2017 CSF no diffsee [facility] CenterComment on above:Result Comment: Differential not performed -Total Nucleated cellsCSF AppearanceClear NormalGood Samaritan Medical CenterCSF ColorColorlessSedgwick County Memorial HospitalCSF Tube NumberTube 4S[facility]gwick County Memorial HospitalFluid Clot Evaluationsee [facility] CenterComment on above:Result Comment: No Clots SeenTotal Nucleated Cells0 K/uLNormal0-8[facility] CenterTotal Red Blood Cells0 K/uLSedgwick County Memorial HospitalCSF Glucose on 78-60-5424GOH Nsvajka68 mg/pTQrzstx94-37KyttjGood Samaritan Medical CenterCSF Proteinon 00-91-1987PZF Jlpkmsu22 mg/dLFvwala79-13PszxuGood Samaritan Medical Center Creatine Kinaseon 74-62-7229Hjompgbe kinase (CK)71 U/LNormal0-170[facility] Medical CenterCulture, CSFon 42-41-4621Tjzktyk, CSFORDER#: [id number] ORDERED BY: VERNA MONGE: CSF (Spinal Fluid) CSF COLLECTED: 05/25/17 13:25ANTIBIOTICS AT AMARILYS.: RECEIVED : 05/25/17 13:25Gram Stain Direct FINAL 05/25/17 15:30 No WBC's, No organisms seenCulture, CSF FINAL 05/28/17 09:04 No growth at 72 hours Sed[facility] Memorial HospitalFL LUMBAR PUNCTURE DIAGon 07-88-6024WY LUMBAR PUNCTURE DIAGFL LUMBAR PUNCTURE DIAG : [...] LUMBAR PUNCTURE.Interpreted by:NIKITA Mezaigned by:Humera Covarrubias MD05/25/inal resultNormalGood Samaritan Medical Center Homocysteineon 69-83-1677Pmipddwylxsr0.1 umol/LNormal0.0-15.0[facility] Medical CenterPartial Thromboplastin Timeon 24-19-8341sFQE12.7 wQorqgd20.6-35.4 [facility] Medical CenterComment on above:Result Comment: Heparin Therapeutic Range: 38.8 - 54.6 seconds.Prothrombin Timeon 32-85-9886FEN Coag RelTime (PPP)1.0 {INR}[facility] Memorial HospitalComment on above:Result Comment: Recommended INR therapeutic [...] secProthrombin time (PT) Coag time (PPP) 10.7 sNormal8.1-13.7[facility] Vital Signs Date TimeVital SignValuePerforming PmjhgbtgqZnbzkgqk17-47-4731 09:26-0400Body mass index (BMI) [Ratio]33.98 kg/d5Ogyyy Montez DO Work Phone: [facility] CenterNzhaqnoena30-21-7453 09:26-0400Body djxywa23.48 kgCore Montez DO Work Phone: [facility] CenterTlqclvokzc65-64-3336 09:26-0400Diastolic blood zbdqollf01 mm[Hg]Wilton Montez DO Work Phone: [facility] CenterOnaepgifbn94-73-6860 09:26-0400Systolic blood oidhwfgj802 mm[Hg][facility]Comp[facility] Work Phone: [facility] CenterQzaypnxkyf57-50-1335 13:44-0400Body mfrzwu290.6 cmApreet Callahan MD MPH Work Phone: [phone]10-20-2025 13:44-0400Body mass index (BMI) [Ratio]33.73 kg/o9AjahdSam Callahan MD MPH Work Phone: [phone])822-[address] [place], [place] 1212310-20-2025 13:44-0400Body inagbq18.8 kgSam Callahan MD MPH Work Phone: [phone])390-[address] [place], [place] 1212310-20-2025 13:44-0400Diastolic blood ofhjobyt97 mm[Hg]Sam Callahan MD MPH Work Phone: 1(142)692-[address] [place], [place] 4171310-20-2025 13:44-0400Heart rate 79 /Héctor Callahan MD MPH Work Phone: 1(728)166-[address] [place], [place] 4171310-20-2025 13:44-0400 Respiratory rate18 /Héctor Callahan MD MPH Work Phone: 1(167)802-[address] [place], [place] 1212310-20-2025 13:44-0400Systolic blood ospxcmnn368 mm[Hg]Sam Callahan MD MPH Work Phone: [facility]10-13-2025 10:45-0400Body mass index (BMI) [Ratio]34.12 kg/v1Hvnui Montez DO Work Phone: [facility] CenterHzesrppfyi63-67-1696 10:45-0400Body .89 kgCorey Montez DO Work Phone: 1([phone])[phone] [place], [place] [address]Lztsqkpqjk16-77-6874 10:45-0400Diastolic blood epuddsac84 mm[Hg]Wilton Montez DO Work Phone: [phone])[phone] [place], [place] [address]Kpjdnuqgoq99-94-2820 10:45-0400Systolic blood scfcoact945 mm[Hg]Wilton Montez DO Work Phone: 1(785)732-[address] [place], [place] [address]Wzubrcemcr33-30-6801 09:30-0400Body mass index (BMI) [Ratio]34.14 kg/d0Quyhh Montez DO Work Phone: [phone] [place], [place] [address]Pxodxjqddu62-96-2340 09:30-0400Body efryyx53.94 kgCorey Montez DO Work Phone: [facility] CenterRbjsvzbtfr95-88-7021 09:30-0400Diastolic blood bfpbghye80 mm[Hg]Wilton Montez DO Work Phone: [facility] CenterCjiujmfzjx21-55-8071 09:30-0400Systolic blood oqexfwdy514 mm[Hg]Wilton Montez DO Work Phone: 1(318)[phone] [place], [place] [address]Okmzvumrvy63-28-7491 15:14-0400Body mass index (BMI) [Ratio]33.73 kg/t7Mjazp Montez DO Work Phone: [place] [address]Nmouccbbii47-76-7190 15:14-0400Body .8 kg Wilton Montez DO Work Phone: [place] [address]Wmyfkwdycu35-61-3219 15:14-0400Diastolic blood hxaoygqn83 mm[Hg]Wilton Montez DO Work Phone: [facility] CenterRcvmfhzleg26-76-2810 15:14-0400Systolic blood zumdwpry967 mm[Hg]Wilton Herrmann DO Work Phone: [facility] CenterVdmwaxdzkm05-88-2052 14:22-0400Body mass index (BMI) [Ratio]33.89 kg/k6DdfrpdeyMukul Noyola MD Work Phone: 1(760)023-[address] [place], [place] 6152409-04-2025 14:22-0400Body .25 kgMukul Noyola MD Work Phone: 1(638)[address] [place], [place] 4876009-04-2025 14:22-0400Diastolic blood mxovqlwk14 mm[Hg]Mukul Noyola MD Work Phone: 1([phone])182-[address] [place], [place] 701[address]09-04-2025 14:22-0400Systolic blood zcvocmsj313 mm[Hg]Mukul Noyola MD Work Phone: [phone]08-26-2025 11:34-0400Body htmaxi112.7 cmKatherine Negrete APRN.POWER WASHER Work Phone: [facility]08-26-2025 11:34-0400Body mass index (BMI) [Ratio]33.57 kg/r5OuqoeKatherine Negrete APRN.POWER WASHER Work Phone: [facility]08-26-2025 11:34-0400Body temperature 97.59 [degF]Katherine Negrete APRN.POWER WASHER Work Phone: [facility]08-26-2025 11:34-0400Body xnywms12.4 kgKatherine Negrete APRN.POWER WASHER Work Phone: [facility]08-26-2025 11:34-0400Diastolic blood rmricqlt23 mm[Hg]Katherine Negrete APRN.POWER WASHER Work Phone: [facility]08-26-2025 11:34-0400Heart rate80 /min Katherine Negrete APRN.POWER WASHER Work Phone: [facility]08-26-2025 11:34-0400Respiratory rate 16 /minKatherine Negrete APRN.POWER WASHER Work Phone: [facility]08-26-2025 11:34-6235ZaK4% (BldA) [Mass fraction]98 %Katherine Negrete APRN.POWER WASHER Work Phone: [facility]08-26-2025 11:34-0400Systolic blood irconnfo832 mm[Hg]Katherine Negrete APRN.POWER WASHER Work Phone: [facility]08-14-2025 09:28-0400Body mass index (BMI) [Ratio]33.41 kg/i7Esfll Montez DO Work Phone: [place] [address]Qwebqjicnd13-39-4595 09:28-0400Body xlszeq59.89 kgCorey Montez DO Work Phone: [facility] CenterIlbefkvhcn12-75-7332 09:28-0400Diastolic blood esarwopq69 mm[Hg]Wilton Montez DO Work Phone: 1(604)716-[address] [place], [place] [address]Eqtcxzctnj66-61-7890 09:28-0400Systolic blood coqcuztc720 mm[Hg]Wilton Montez DO Work Phone: [phone] [place], [place] [address]Valdgqsbnh79-13-0193 10:53-0400Body mass index (BMI) [Ratio]33.57 kg/a9Tmtns Montez DO Work Phone: [facility] CenterHurpetqntc17-56-2260 10:53-0400Body iwdxdw12.35 kgCorey Montez DO Work Phone: [facility] CenterPljdvzwncz59-73-8482 10:53-0400Diastolic blood pcickdbx88 mm[Hg]Wilton Montez DO Work Phone: [facility] CenterWiaswsyffm88-69-7551 10:53-0400Systolic blood bkzalocc737 mm[Hg]Wilton Montez DO Work Phone: [facility] CenterJyeclroazs13-96-6202 13:07-0400Body mass index (BMI) [Ratio]33.73 kg/u6ZsyhdxLorena Enciso RN Work Phone: 1(419)291-[address] [place], [place] [address]07-23-2025 13:07-0400Body wzuvlg26.8 kgDonyavu Zaria RN Work Phone: [facility]07-03-2025 09:32-0400Body mass index (BMI) [Ratio]33.81 kg/y7Bomlv Montez DO Work Phone: [facility] CenterEkgrypvxif99-40-4308 09:32-0400Body .03 kgCorey Montez DO Work Phone: [facility] CenterMdjloheeck55-31-6643 09:32-0400Diastolic blood mm[Hg]Wilton Montez DO Work Phone: [facility] CenterJnypexedjk10-74-9187 09:32-0400Systolic blood qagnnexk389 mm[Hg]Wilton Montez DO Work Phone: [facility] CenterBdfeffvctj36-45-3642 14:23-0400Body mass index (BMI) [Ratio]33.46 kg/d0XkjzmKatherine Negrete APRN.POWER WASHER Work Phone: [facility]07-01-2025 14:23-0400Body temperature 97 [degF]Katherine Negrete APRN.POWER WASHER Work Phone: [facility]07-01-2025 14:23-0400Body upoldc64.1 kgKatherine Negrete APRN.POWER WASHER Work Phone: [facility]07-01-2025 14:23-0400Diastolic blood mm[Hg]Katherine Negrete APRN.POWER WASHER Work Phone: [facility]07-01-2025 14:23-0400Heart rate82 /min Katherine Negrete APRN.POWER WASHER Work Phone: [facility]07-01-2025 14:23-0400Respiratory rate 16 /minKatherine Negrete APRN.POWER WASHER Work Phone: [facility]07-01-2025 14:23-6466UiN3% (BldA) [Mass fraction]100 %Katherine Negrete APRN.POWER WASHER Work Phone: [facility]07-01-2025 14:23-0400Systolic blood prcresqu482 mm[Hg]Katherine Negrete APRN.POWER WASHER Work Phone: [facility]06-05-2025 14:10-0400Body mass index (BMI) [Ratio]33.89 kg/m2[facility]06-05-2025 14:10-0400Body lxyvuu32.25 kgBarn[facility]06-05-2025 14:10-0400Diastolic blood hneimolj98 mm[Hg][facility]06-05-2025 14:10-0400Systolic blood jqkzwtuj711 mm[Hg][facility]03-27-2025 12:07-0400Body mass index (BMI) [Ratio]34.44 kg/j6Encpm Montez DO Work Phone: [facility] CenterVomjywjeyt32-19-4659 12:07-0400Body yiciay37.8 kg Wilton Montez DO Work Phone: [facility] CenterJtfyvdotdd19-07-7184 12:07-0400Diastolic blood pdwfyinn71 mm[Hg]Wilton Montez DO Work Phone: [facility] CenterMxjrmafqkq24-36-8011 12:07-0400Systolic blood mm[Hg]Wilton Montez DO Work Phone: [facility] CenterXjvawvvyyu08-65-3929 08:27-0500Blood Pressure LocationScott KAPLE [phone]-KnssxOhio [facility]03-03-2025 08:27-0500Diastolic blood qyehxofx63 mm[Hg]Penelope CASAS [phone]-QevjnOhio State University [facility]03-03-2025 08:27-0500Heart rate77 /minScott KAPLE [phone]-JehctOhio State University [facility]03-03-2025 08:27-5576LlP8% (BldA) [Mass fraction]99 %Penelope CASAS [phone]-KehmaOhio State University [facility] Center03-03-2025 08:27-0500Systolic blood basjkgat384 mm[Hg]Penelope KAPLE [phone]-UxglvOhio State University [facility] Center02-24-2025 15:21-0500Body mass index (BMI) [Ratio]34.93 kg/p4Rhopl Montez DO Work Phone: [facility] CenterQtsxcaadmd82-96-4145 15:21-0500Body aeslsd86.16 kgCorey Montez DO Work Phone: [facility] CenterYizkurpnsx77-38-7352 15:21-0500Diastolic blood tucvwzbz96 mm[Hg]Wilton Montez DO Work Phone: [facility] CenterGnfnfbwuru82-72-1761 15:21-0500Systolic blood nzmxoxdk805 mm[Hg]Wilton Montez DO Work Phone: [facility] CenterEisskmqppc31-94-4049 16:14-0500Blood Pressure LocationJESSICA BACA [phone]-EoienJ.[facility]. [facility] 06-19-2024 16:14-0500Diastolic blood pqatsuzi44 mm[Hg]JESSICA BACA [phone]-HpvgeJ.[facility]. [facility] 06-19-2024 16:14-0500Heart rate74 /minJESSICA BACA [phone]-PjaksJ.W. [facility] 06-19-2024 16:14-1828OiZ3% (BldA) [Mass fraction]100 %JESSICA BACA [phone]-FhbtaJ.[facility]. [facility] 06-19-2024 16:14-0500Systolic blood fuqlznno082 mm[Hg]JESSICA BACA [phone]-GucurJ.W. [facility] 06-09-2024 13:55-0500Blood Pressure LocationScott KAPBEN [phone]-NqnlcOhio [facility]02-10-2025 13:55-0500Diastolic blood nidksosh10 mm[Hg]Penelope CASAS [phone]-NxvweOhio State University [facility]02-10-2025 13:55-0500Heart rate78 /minScott PRAVEEN [phone]-QbkxiOhio [facility]02-10-2025 13:55-1810CqQ7% (BldA) [Mass fraction]99 %Penelope CASAS [phone]-SbinoOhio [facility] University [facility]02-10-2025 13:55-0500Systolic blood lroyvusc411 mm[Hg]Penelope CASAS [phone]-IjjiaOhio State University [facility] Center02-03-2025 11:43-0500Body mass index (BMI) [Ratio]34.51 kg/k5Omrov Montez DO Work Phone: [facility] CenterYfvqmahzsa86-07-8816 11:43-0500Body uxjrqt74.98 kgCorey Montez DO Work Phone: [facility] CenterNvsvdmbpqa16-69-6920 11:43-0500Diastolic blood qoxessxo37 mm[Hg]Wilton Montez DO Work Phone: [facility] CenterOdqaauqsiz90-58-9638 11:43-0500Systolic blood xerfpjuw930 mm[Hg]Wilton Montez DO Work Phone: [facility] CenterEmyikikbkq77-60-3998 13:07-0500Body .7 cmVramos Calix MD Work Phone: [facility]01-29-2025 13:07-0500Body mass index (BMI) [Ratio]35.02 kg/r2YqqjtKristofer Calix MD Work Phone: [facility]01-29-2025 13:07-0500Body temperature 97.59 [degF]Kristofer Calix MD Work Phone: [facility]01-29-2025 13:07-0500Body .5 kgKristofer Calix MD Work Phone: [facility]01-29-2025 13:07-0500Diastolic blood dlgisqrd92 mm[Hg]Kristofer Calix MD Work Phone: [facility]01-29-2025 13:07-0500Heart rate72 /min Kristofer Calix MD Work Phone: [facility]01-29-2025 13:07-0500Respiratory rate 16 /minKristofer Calix MD Work Phone: [facility]01-29-2025 13:07-5993VvG6% (BldA) [Mass fraction]99 %Kristofer Calix MD Work Phone: [facility]01-29-2025 13:07-0500Systolic blood gdelmhwn104 mm[Hg]Kristofer Calix MD Work Phone: [facility]01-07-2025 14:40-0500Body mass index (BMI) [Ratio]35.41 kg/v6Jhmqw Montez DO Work Phone: [facility] CenterRxcjlplznx31-55-2119 14:40-0500Body kudqdg96.52 kgCorey Montez DO Work Phone: [facility] CenterNjmpuxjqol80-36-4998 14:40-0500Diastolic blood zgrweuvf21 mm[Hg]Wilton Montez DO Work Phone: [facility] CenterSvwppwbzoj63-97-4138 14:40-0500Systolic blood ahgzlipk096 mm[Hg]Wilton Montez DO Work Phone: [facility] CenterXdgxuyqgmk86-25-4014 10:57-0500Body mass index (BMI) [Ratio]35.85 kg/m2[facility]12-06-2024 10:57-0500Body dernod525.75 kgBarnes-Jewish [facility]10-08-2024 13:29-0400Blood Pressure LocationScott KAPLE [address] [place], [place] 2603610-08-2024 13:29-0400Body cagyzbucupy68.06 [degF]Penelope CASAS [address] [place], [place] 2603610-08-2024 13:29-0400Diastolic blood mm[Hg]Penelope CASAS [address] [place], [place] 2603610-08-2024 13:29-0400Heart rate76 /minScott KAPLE [address] [place], [place] 2603610-08-2024 13:29-0400Respiratory rate16 /minScott PRAVEEN [address] [place], [place] 2603610-08-2024 13:29-3286LkX6% (BldA) [Mass fraction]99 %Penelope CASAS [id number]-Feqhr[address] [place], [place] 6564610-08-2024 13:29-0400Systolic blood vsnyslzj376 mm[Hg]Penelope CASAS [phone]-Yztwk[address] [place], [place] 6564610-05-2024 14:39-0400Blood Pressure LocationPreeti [facility] [phone]-Xmwhc[address] [place], [place] 1546010-05-2024 14:39-0400Body wonzkwzlowd22.06 [degF]Anni Gudimella [phone]-Dthdz[address] [place], [place] 1546010-05-2024 14:39-0400Diastolic blood eztsfcvn17 mm[Hg]Anni Gudimella [phone]-Aqxcm[address] [place], [place] 1546010-05-2024 14:39-0400Heart rate98 /minPreeti Gudimella 247-2631Rxiscf-Vrjbg[address] [place], [place] 1546010-05-2024 14:39-2310UqL7% (BldA) [Mass fraction]99 %Anni Gudimella 009-8000Iorusd-QxyrcOhiohealth [facility] Sitk21-38-5265 14:39-0400Systolic blood ayzuffob852 mm[Hg]Anni Day 184-8351Ukdadn-JzjcfOhiohealth [facility] Pjuu91-20-1306 13:45-0400Body tievbh213.7 cmVramos Calix MD Work Phone: [facility]09-04-2024 13:45-0400Body mass index (BMI) [Ratio]36.52 kg/b8EajwhKristofer Calix MD Work Phone: [facility]09-04-2024 13:45-0400Body temperature 97.11 [degF]Kristofer Calix MD Work Phone: [facility]09-04-2024 13:45-0400Body .7 kgKristofer Calix MD Work Phone: [facility]09-04-2024 13:45-0400Diastolic blood mm[Hg]Kristofer Calix MD Work Phone: [facility]09-04-2024 13:45-0400Heart rate91 /min Kristofer Calix MD Work Phone: [facility]09-04-2024 13:45-0400Respiratory rate 16 /minKristofer Calix MD Work Phone: [facility]09-04-2024 13:45-1549VaH1% (BldA) [Mass fraction]100 %Kristofer Calix MD Work Phone: [facility]09-04-2024 13:45-0400Systolic blood lqojjrpa811 mm[Hg]Kristofer Calix MD Work Phone: [facility]08-01-2024 13:40-0400Body temperature 97.7 [degF]Chair Claudio Work Phone: [facility]08-01-2024 13:40-0400Diastolic blood namemiau65 mm[Hg]Chair [place] Work Phone: [facility]08-01-2024 13:40-0400Heart rate75 /min Chair [place] Work Phone: [facility]08-01-2024 13:40-0400Respiratory rate 16 /minChair [place] Work Phone: [facility]08-01-2024 13:40-2885JgR6% (BldA) [Mass fraction]99 %Chair [place] Work Phone: [facility]08-01-2024 13:40-0400Systolic blood slrjpnyo686 mm[Hg]Chair Stew Work Phone: [facility]07-25-2024 14:00-0400Body temperature 98.2 [degF]Chair [place] Work Phone: [facility]07-25-2024 14:00-0400Diastolic blood jgvnwews67 mm[Hg]Chair Stew Work Phone: [facility]07-25-2024 14:00-0400Heart rate79 /min Chair [place] Work Phone: [facility]07-25-2024 14:00-0400Respiratory rate 16 /minChair [place] Work Phone: [facility]07-25-2024 14:00-0512XuG2% (BldA) [Mass fraction]99 %Chair [place] Work Phone: [facility]07-25-2024 14:00-0400Systolic blood uwmbcgms347 mm[Hg]Chair [place] Work Phone: [facility]07-18-2024 14:08-0400Diastolic blood wevwkzht08 mm[Hg]Chair [place] Work Phone: [facility]07-18-2024 14:08-0400Heart rate85 /min Chair [place] Work Phone: 1(453) [phone]18-2024 14:08-0400Respiratory rate 18 /minChair Stew Work Phone: [facility]07-18-2024 14:08-9338XzV5% (BldA) [Mass fraction]96 %Chair Stew Work Phone: [facility]07-18-2024 14:08-0400Systolic blood yjbcymbl267 mm[Hg]Chair Stew Work Phone: [facility]07-12-2024 14:44-0400Blood Pressure LocationMonica Saba [phone]-Uxmsk[address] [place], [place] 6564607-12-2024 14:44-0400Body hywjutysfef74.34 [degF]Monica Saba [phone]-Xwclj[address] [place], [place] 6564607-12-2024 14:44-0400Diastolic blood ucuilzbo38 mm[Hg]Monica Saba 382-0381Afilwg-Ydllo[address] [place], [place] 6564607-12-2024 14:44-0400Heart rate85 /Jennifer Saba [phone]-Rdcta[address] [place], [place] 6564607-12-2024 14:44-0400Respiratory rate16 /Jennifer Saba [phone]-Evvrs[address] [place], [place] 6564607-12-2024 14:44-1537EpO7% (BldA) [Mass fraction]99 %Monica Saba 448-9561Cdikjo-Qxdiy[address] [place], [place] 6564607-12-2024 14:44-0400Systolic blood xjlfatbz326 mm[Hg]Monica Saba 981-1234Rcyrrc-Fncdp[address] [place], [place] 6564606-25-2024 16:48-0400Blood Pressure LocationLourdes Garber [phone]-ClvqzOhio [facility] University [facility]06-25-2024 16:48-0400Body dmtzbcxraxr44.52 [degF]Lourdes Garber 295-5984Igpqbw-Xknmd[address] [place], [place] 6564606-25-2024 16:48-0400Diastolic blood byqktosz41 mm[Hg]Lourdes Garber 252-2741Ibgzvn-Ejljk[address] [place], [place] 6564606-25-2024 16:48-0400Heart rate86 /minJaclynn Shirlene 557-7403Qqdxbf-Ygref[address] [place], [place] 6564606-25-2024 16:48-7732KsR5% (BldA) [Mass fraction]99 %Lourdes Garber [address] [place], [place] 2603606-25-2024 16:48-0400Systolic blood uvtqdusa159 mm[Hg]Lourdes Garber [address] [place], [place] 2603605-31-2024 21:17-0400Body mrdmsabqbic75.06 [degF]Benny Uribe [address]05-31-2024 21:17-0400 Diastolic blood ozzdudiy63 mm[Hg]Benny Uribe [address]05-31-2024 21:17-0400Heart rate67 /minBenny Uribe [address] [place], [place] 8554305-31-2024 21:17-0400Mean blood herymhpr18 mm[Hg]Benny Uribe [address] [place], [place] 8554305-31-2024 21:17-2224UqT2% (BldA) [Mass fraction]95 %Benny Uribe [address] [place], [place] 8554305-31-2024 21:17-0400 Systolic blood zsamytlz622 mm[Hg]Benny Uribe [address] [place], [place] 4166305-31-2024 20:00-0400 Diastolic blood uefghkms95 mm[Hg]Benny Uribe [address] [place], [place] 4166305-31-2024 20:00-0400Heart rate78 /Xavier Uribe [address] [place], [place] 4166305-31-2024 20:00-0400Mean blood zivyqusx58 mm[Hg]Benny Uribe [address] [place], [place] 4166305-31-2024 20:00-0400 Respiratory rate20 /minBenny Uribe [address] [place], [place] 4166305-31-2024 20:00-0400 Systolic blood buvyryjx731 mm[Hg]Benny Uribe [address] [place], [place] 4166305-31-2024 19:30-0400 Diastolic blood wmhqswxe93 mm[Hg]Benny Uribe [address] [place], [place] 4166305-31-2024 19:30-0400Heart rate80 /Xavier Uribe [address] [place], [place] 4166305-31-2024 19:30-0400Mean blood buyusgia030 mm[Hg]Benny Uribe [address] [place], [place] 4166305-31-2024 19:30-0400 Respiratory rate18 /Xavier Uribe [address] [place], [place] 4166305-31-2024 19:30-5623ObG2% (BldA) [Mass fraction]100 %Benny Uribe [address] [place], [place] 4166305-31-2024 19:30-0400 Systolic blood ylsulhzl018 mm[Hg]Benny Uribe [address] [place], [place] 4166305-31-2024 19:00-0400 Respiratory rate17 /minBenny Uribe [address] [place], [place] 4166305-31-2024 18:32-0400Body zlqtppltaru79.42 [degF]Benny Uribe [address] [place], [place] 4166305-31-2024 18:32-0400Heart rate69 /minKederik Uribe [facility]05-31-2024 17:46-0400 Diastolic blood pvktwzvo60 mm[Hg]JANET ROBERTSONTIZ 717-7211Sbepjd-OssooOhiohealth [facility] Vgcu49-78-9801 17:46-0400Mean blood btxfyroj508 mm[Hg]JANET DUNHAM 871-6730Uyzahl-FnnlcOhiohealth [facility] Dwtu56-29-4182 17:46-0400Systolic blood xetltkua017 mm[Hg][facility] 034-5918Ohkefm-AbbsdOhiohealth [facility] Byfs25-74-6060 17:40-0400Blood Pressure LocationFRANCJONEL DUNHAM 219-3219Ojsqbx-KrevqOhiohealth [facility] Hqpl68-01-3462 17:40-0400Body ecnhppazwuy60.88 [degF]JANET DUNHAM 446-1351Ajytvv-YmxxaOhiohealth [facility] Ncsb40-23-1702 17:40-0400Diastolic blood hixbvdnn57 mm[Hg][facility] CENTERZ 241-1393Svcsbt-WksfkOhiohealth [facility] Rwgf39-22-1656 17:40-0400Heart rate79 /minFRPRITESH DUNHAM 091-2808Srqhuh-GuggdOhiohealth [facility] Ugil22-17-0031 17:40-7631DeZ1% (BldA) [Mass fraction]97 %JANET DUNHAM 872-2154Nafzxv-RtsilOhiohealth [facility] Hvoo34-63-3294 17:40-0400Systolic blood mm[Hg]JANET DUNHAM 210-9731Onljlu-PmcypOhiohealth [facility] Sdjm44-75-4354 11:42-0400Blood Pressure LocationScomike CASAS 871-4130Qnkaio-QvtweOhiohealth [facility] Primary Fovg19-10-6062 11:42-0400Body wqbnrukcjne21.06 [degF]Penelope CASSA 086-6143Ejejbz-MyuspOhio State University [facility]04-05-2024 11:42-0400Diastolic blood syrnvuyv85 mm[Hg]Penelope CASAS 575-3952Czgnzk-PijxxOhio State University [facility]04-05-2024 11:42-0400Heart rate72 /minScott KAPLE 688-2016Pikeyn-CglfpOhio State University [facility]04-05-2024 11:42-0400Respiratory rate16 /minScott KAPLE 318-9493Bnuyzm-OpyavOhio State University [facility]04-05-2024 11:42-7609ByC5% (BldA) [Mass fraction]99 %Penelope CAASS 755-7257Qqowih-FpczxOhio State University [facility]04-05-2024 11:42-0400Systolic blood zevbhnag807 mm[Hg]Penelope PRAVEEN 135-8827Ltqfxg-EfgtjOhio State University [facility]02-16-2024 14:05-0500Body aejgxl710.7 cmVramos Calix MD Work Phone: [facility]02-16-2024 14:05-0500Body temperature 97.39 [degF]Kristofer Calix MD Work Phone: [facility]02-16-2024 14:05-0500Body uwmhfi738.1 kgKristofer Calix MD Work Phone: [place] [address]-16-2024 14:05-0500Diastolic blood jebyguxz71 mm[Hg]Kristofer Calix MD Work Phone: [facility]02-16-2024 14:05-0500Heart rate87 /min Kristofer Calix MD Work Phone: [facility]02-16-2024 14:05-0500Respiratory rate 16 /minKristofer Calix MD Work Phone: 1(221) [phone] [address]16-2024 14:05-9967GdT0% (BldA) [Mass fraction]95 %Kristofer Calix MD Work Phone: [facility]02-16-2024 14:05-0500Systolic blood tjvreboj417 mm[Hg]Kristofer Calix MD Work Phone: [facility]01-26-2024 11:11-0500Blood Pressure LocationScott KAPLE [address] [place], [place] 2603601-26-2024 11:11-0500Body atgiloldyjb01.7 [degF]Penelope KAPLE [address] [place], [place] 2603601-26-2024 11:11-0500Diastolic blood mm[Hg]Penelope KAPLE [address] [place], [place] 2603601-26-2024 11:11-0500Heart rate76 /minScott KAPLE 158-2309Eyhwli-Zvjod[address] [place], [place] 6564601-26-2024 11:11-0500Respiratory rate18 /minScott KAPLE 755-0677Xvaeyq-Pvnuk[address] [place], [place] 6564601-26-2024 11:11-2245KdI6% (BldA) [Mass fraction]98 %Penelope KAPLE [address] [place], [place] 2603601-26-2024 11:11-0500Systolic blood gncdvaia225 mm[Hg]Penelope KAPLE 682-8864Rfzuzq-Afvrg[address] [place], [place] 6564610-19-2023 09:41-0400Blood Pressure LocationScott KAPLE 720-5503Ghhvcw-Wqlvv[address]10-19-2023 09:41-0400Body fvmrnisqwnp90.42 [degF]Penelope KAPLE 365-4288Ckewjz-Oksaw[address] [place], [place] 6564610-19-2023 09:41-0400Diastolic blood mm[Hg]Penelope KAPLE 073-8854Sspgiq-NwlkqOhio State University [facility]10-19-2023 09:41-0400Heart rate80 /minScott KAPLE 286-9750Cqeark-Oebaw[address] [place], [place] 6564610-19-2023 09:41-0400Respiratory rate18 /minScott KAPLE 470-6529Kgdtbd-Iqeae[address] [place], [place] 6564610-19-2023 09:41-2002VqK9% (BldA) [Mass fraction]98 %Penelope PRAVEEN 035-2987Ugqmwh-Cfiwc[address] [place], [place] 6564610-19-2023 09:41-0400Systolic blood isalvase570 mm[Hg]Penelope STEPHANILE 761-1043Mtihpm-Ywqco[address]06-23-2023 09:44-0400Blood Pressure LocationScott KAPLE 766-5185Oczyzl-Wnodc[address]06-23-2023 09:44-0400Body mlmenzndlzj90.24 [degF]Penelope CASAS 514-6847Sanmww-Lwvcg[address]06-23-2023 09:44-0400Diastolic blood mhokiizm11 mm[Hg]Penelope CASAS 529-4988Wnyqdh-Cdqve[address]06-23-2023 09:44-0400Heart rate88 /minScott KAPLE 589-9297Qwhove-Ufikp[address] [place], [place] 6564606-23-2023 09:44-0400Respiratory rate18 /minScott KAPLE 538-0758Hmhaxf-Anhqx[address] [place], [place] 6564606-23-2023 09:44-7510SwX4% (BldA) [Mass fraction]98 %Penelope PRAVEEN 442-6735Yyezmj-Qzcsn[address] [place], [place] 6564606-23-2023 09:44-0400Systolic blood jpyqsvlz923 mm[Hg]Penelope CASAS 413-1425Fbebaq-Pchau[address] [place], [place] 6564603-30-2023 13:18-0400Body rvuxte554.7 cmVramos Calix MD Work Phone: [facility]03-30-2023 13:18-0400Body temperature 97.5 [degF]Kristofer Calix MD Work Phone: [facility]03-30-2023 13:18-0400Body pfqnva483.78 kgKristofer Calix MD Work Phone: [facility]03-30-2023 13:18-0400Diastolic blood yxokacal91 mm[Hg]Kristofer Calix MD Work Phone: [facility]03-30-2023 13:18-0400Heart rate76 /min Kristofer Calix MD Work Phone: [facility]03-30-2023 13:18-0400Respiratory rate 16 /minKristofer Calix MD Work Phone: [facility]03-30-2023 13:18-7938PhF9% (BldA) [Mass fraction]97 %Kristofer Calix MD Work Phone: [facility]03-30-2023 13:18-0400Systolic blood wpabujem118 mm[Hg]Kristofer Calix MD Work Phone: [facility]12-22-2022 13:45-0500Body temperature 98.71 [degF]Chair [place] Work Phone: [facility]12-22-2022 13:45-0500Diastolic blood gmukdirq61 mm[Hg]Chair Stew Work Phone: [facility]12-22-2022 13:45-0500Heart rate85 /min Chair Stew Work Phone: [facility]12-22-2022 13:45-7500WbD9% (BldA) [Mass fraction]97 %Chair Stew Work Phone: [place] [address]-22-2022 13:45-0500Systolic blood wqnzulhz448 mm[Hg]Chair Stew Work Phone: [facility]12-07-2022 16:27-0500Diastolic blood fzlrentr73 mm[Hg]Chair Stew Work Phone: [facility]12-07-2022 16:27-0500Heart rate84 /min Chair Stew Work Phone: [facility]12-07-2022 16:27-0500Respiratory rate 18 /minChair Stew Work Phone: [facility]12-07-2022 16:27-4441KqB9% (BldA) [Mass fraction]96 %Chair Stew Work Phone: [facility]12-07-2022 16:27-0500Systolic blood mm[Hg]Chair Stew Work Phone: [facility]11-28-2022 14:20-0500Body udjele795.7 cmVramos Calix MD Work Phone: [facility]11-28-2022 14:20-0500Body temperature 97.39 [degF]Kristofer Calix MD Work Phone: [facility]11-28-2022 14:20-0500Body zoqcjm474.23 kgKristofer Calix MD Work Phone: [place] [address]-28-2022 14:20-0500Diastolic blood vfuhftxs61 mm[Hg]Kristofer Calix MD Work Phone: [place] [address]-28-2022 14:20-0500Heart icwa960 /minKristofer Calix MD Work Phone: [place] [address]-28-2022 14:20-0500Respiratory rate 16 /minKristofer Calix MD Work Phone: [place] [address]-28-2022 14:20-4688DxV8% (BldA) [Mass fraction]97 %Kristofre Calix MD Work Phone: [facility]11-28-2022 14:20-0500Systolic blood qmwaykyp838 mm[Hg]Kristofer Calix MD Work Phone: [facility]10-03-2022 11:46-0400Body wjsudq657.7 cmVramos Calix MD Work Phone: [facility]10-03-2022 11:46-0400Body temperature 97.2 [degF]Kristofer Calix MD Work Phone: [facility]10-03-2022 11:46-0400Body daitwt068.42 kgKristofer Calix MD Work Phone: [facility]10-03-2022 11:46-0400Diastolic blood qmicdgrf02 mm[Hg]Kristofer Calix MD Work Phone: [facility]10-03-2022 11:46-0400Heart rate88 /min Kristofer Calix MD Work Phone: [facility]10-03-2022 11:46-0400Respiratory rate 16 /minKristofer Calix MD Work Phone: [facility]10-03-2022 11:46-8976KpF0% (BldA) [Mass fraction]99 %Kristofer Calix MD Work Phone: [facility]10-03-2022 11:46-0400Systolic blood umsmeerh675 mm[Hg]Kristofer Calix MD Work Phone: [facility]04-22-2022 10:46-0400Blood Pressure LocationPERNELL LONGORIA 024-1674Cjwarm-MopswJ.W. [facility] 04-22-2022 10:46-0400Diastolic blood fyqikrda40 mm[Hg] PERNELL LONGORIA 851-7325Lklpia-QkwlaJ.W. Ruby [facility] 04-22-2022 10:46-0400Heart rate96 /minDERIK VON 069-5124Hcfdgk-HeyafJ.W. [facility] 04-22-2022 10:46-0523AuY7% (BldA) [Mass fraction]99 % PERNELL LONGORIA 871-4768Adgcwb-EfhgsJ.W. [facility] 04-22-2022 10:46-0400Systolic blood gobiwviz113 mm[Hg] PERNELL LONGORIA [phone]-JafrzJ.W. [facility] Encounters Encounter DateEncounter TypeCare ProviderFacilityStart: 03-06-2025 End: 88-88-3541Wjpkqaqek Result EncounterCorey Montez DO Work Phone: noms External Department UnsolicitedStart: 03-06-2025 End: 86-49-9648Nglgevxja Result EncounterCorey Montez DO Work Phone: noms External Department UnsolicitedStart: 03-02-2025 End: 46-71-2316umaejolbeiTSONP MARTINEZFacility:[facility] Hospitaltart: 02-27-2025 End: 08-90-6773Rnundhnjv Result EncounterCorey Montez DO Work Phone: noms External Department UnsolicitedStart: 02-27-2025 End: 38-59-9841Eugiuvigh Result EncounterCorey Montez DO Work Phone: noms External Department UnsolicitedStart: 02-23-2025 End: 64-16-7166Fcuord flowsheetCorey Montez DO Work Phone: n[facility] OBGYNStart: 02-23-2025 End: 82-35-7338Vhtbxa flowsheetCorey Montez DO Work Phone: [facility]BGYNStart: 02-23-2025 End: 71-23-3603ybpospcgldHXKZQ FAZIONot AvailableStart: 02-23-2025 End: 84-16-7710Dgrcrm outpatient visit 15 minutesCorey Montez DO Work Phone: noms [facility] OBGYNComment on above:Third trimester (HHS-HCC); 30 weeks gestation of (HHS-HCC)Start: 02-20-2025 End: 35-79-6801Ihkigeosd Result EncounterCorey Montez DO Work Phone: noms External Department UnsolicitedStart: 02-20-2025 End: 05-34-6041Rkmhdpfpj Result EncounterCorey Montez DO Work Phone: noms External Department UnsolicitedStart: 02-16-2025 End: 36-47-3949Korwha consultation new/estab patient 80 Héctor Callahan MD MPH Work Phone: [facility] CenterComment on above:Antiphospholipid syndrome (Primary Dx); Antiphospholipid syndrome complicating , antepartum; History of CVA (cerebrovascular accident); Coordination of complex care; 29 weeks gestation of pregnancyStart: 02-16-2025 End: 61-30-8714tnostqbygiOBYQZ REDDY AMBATICleveland Clinic HospitalStart: 02-10-2025 End: 32-56-1138Uprajzhcu encounterAnnita WELLS Work Phone: [phone]-Ukvsh Medicine at [facility] Start: 02-09-2025 End: 27-65-0666ftbbfrqenzQKUPC FAZIONot AvailableStart: 02-09-2025 End: 64-44-7259Dgivjk outpatient visit 15 minutesCorey Montez DO Work Phone: [facility] OBGYNComment on above:Third trimester ([facility]); 28 weeks gestation of (HHS-HCC); Anemia complicating childbirth (HHS-HCC); Anticoagulant long-term use; Antiphospholipid antibody positive; Blood pressure elevated without history of HTN; Coagulation defect, unspecified ([facility]-H[facility])Start: 02-06-2025 End: 96-94-7185wcvkfzgwswTKAXXJLGJoshua ShettyMain Campus Medical Centertart: 02-06-2025 End: 45-72-2110Mqequp outpatient visit 25 minutesMukul Noyola MD Work Phone: [phone]-Ibwnp Medicine at [facility] Comment on above:27 weeks gestation of (Primary Dx); Multigravida of advanced maternal age in third trimester; Gestational diabetes mellitus (GDM) in second trimester controlled on oral hypoglycemic drug; Antiphospholipid syndrome complicating , antepartum; Antiphospholipid syndromeStart: 02-05-2025 End: 94-30-2720lfrbqwfbacRPJGKOzark Health Medical Center Ambulatory PPGStart: 02-03-2025 End: 96-77-1548mlktthptomAfqqi R [facility]PITALOFacility:FTMCStart: 01-19-2025 End: 63-15-4169dxbtaxatdsLRNQN [facility] HOSPITALONo AvailableStart: 01-19-2025 End: 46-03-8427Jfroun outpatient visit 15 minutesWilton Herrmann DO Work Phone: NOFL [facility]ush OBGYNComment on above:Second trimester ([facility]); 25 weeks gestation of ([facility]); Gestational diabetes mellitus (GDM), antepartum, gestational diabetes method of control unspecified([facility]); Anticoagulant long-term use; Antiphospholipid antibody positive; Antiphospholipid antibody syndrome ([facility])Start: 30-33-9368hnatycadjrXqtwo R FAZIOFacility:FTMCStart: 01-13-2025 End: 51-28-9001Exdedg outpatient visit 25 minutesRoxana Smith PA-C Work Phone: [phone]-Twkgs Medicine at [facility] Comment on above:Gestational diabetes mellitus (GDM) in second trimester controlled on oral hypoglycemic drug (Primary Dx); Antiphospholipid syndrome; Other specified hypothyroidism; Antiphospholipid syndrome complicating , antepartumStart: 01-13-2025 End: 63-44-5873ymfgcoigfrULFCJUY E LAVOYProMedica Parkview Healthtart: 01-09-2025 End: 38-16-1642Fuaexypnb encounterMukul Noyola MD Work Phone: [phone]-Irwyq Medicine at [facility] Comment on above:Antiphospholipid syndrome (Primary Dx)Start: 01-07-2025 End: 49-15-7149Rcmmrumso encounterKenyonfrancis Quickpton RNMaternal- Medicine at [facility] Centertart: 01-05-2025 End: 92-80-5754wwbduuuzxqMVXKA FAZIONot AvailableStart: 01-05-2025 End: 33-26-1203Bgyjab outpatient visit 15 minutesCorey Montez DO Work Phone: noms [facility] OBGYNComment on above:Second trimester ([facility]); 23 weeks gestation of ([facility]); Thyroid disease ; Gestational diabetes mellitus (GDM), antepartum, gestational diabetes method of control unspecified([facility]); Multigravida of advanced maternal age in second trimester ([facility]); H/O loss; Lightheaded; DizzinessStart: 01-05-2025 End: 46-26-5064Gzychv flowsheetCorey Montez DO Work Phone: noms [facility] OBGYNStart: 01-05-2025 End: 73-93-3742Twpxhd flowsheetCorey Montez DO Work Phone: noms [facility] OBGYNStart: 01-05-2025 End: 28-99-3063Sorimoxsbrcbs procedureBrofrancis Quickpton RNMaternal- Medicine at [facility] CenterComment on above:Multigravida of advanced maternal age [...] Family history of autism; HyponatremiaStart: 01-01-2025 End: 85-06-5212Lfmjks consultation new/estab patient 80 Margaux Noyola MD Work Phone: [facility] Clinvirtua berlinComment on above: 22 weeks gestation of (Primary Dx); Antiphospholipid syndrome complicating , antepartum; History of stroke; History of loss in prior , currently in second trimester; Gestational diabetes mellitus (GDM) in second trimester controlled on oral hypoglycemic drug; Multigravida of advanced maternal age in second trimester; Hypothyroidism affecting in second trimester; Family history of autism; HyponatremiaStart: 01-01-2025 End: 94-75-2487Ilypwu AbeJosyshelbytae YusufKelvin [facility] Comment on above:Multigravida of advanced maternal age in second trimester (Primary Dx); Antiphospholipid syndrome complicating , antepartum; Gestational diabetes mellitus (GDM) in second trimester controlled on oral hypoglycemic drug; Insulin controlled gestational diabetes mellitus (GDM) in second trimester; AMA (advanced maternal age) multigravida 35+, second trimester; Hypothyroidism, unspecified typeStart: 12-26-2024 End: 08-86-1977Lrdnvj Ty Noyola MD Work Phone: pK[facility] Medical CenterComment on above: Gestational diabetes mellitus (GDM) in second trimester controlled on oral hypoglycemic drug (Primary Dx)Start: 12-23-2024 End: 31-71-4953Ejyvhdu encounter procedureKatherine Negrete APRN.CNP Work Phone: Hematology/OncologyStart: 12-23-2024 End: 16-80-6853fcfjlgbxinLauswJuju Negrete APRN.CNP Work Phone: Hematology/OncologyComment on above:Antiphospholipid antibody positive (Primary Dx); Iron deficiency anemia secondary to blood loss (chronic); Vitamin D deficiency; Primary hypercoagulable state (HCC)Start: 12-17-2024 End: 44-57-3123qneshzqrkrCGTDTUMZTriHealthtart: 12-17-2024 End: 81-93-5036Uuuhdc outpatient visit 25 minutesAlisa Tori NURSING SERVICE DIRECTOR-POWER WASHER Work Phone: [phone]-Jdatm [facility] at [facility] Comment on above:Gestational diabetes mellitus (GDM) in second trimester controlled on oral hypoglycemic drug (Primary Dx)Start: 12-17-2024 End: 36-62-9209dzfmptmhmxUQGGQZDP BROGANCleveland Clinic HospitalStart: 12-16-2024 End: 14-58-8383Xrsrxgxlo Result EncounterCorey Montez DO Work Phone: noms External Department UnsolicitedStart: 12-16-2024 End: 23-53-1289Teorqtzae Result EncounterCorey Montez DO Work Phone: noms External Department UnsolicitedStart: 12-12-2024 End: 26-19-3314Vzjnnkhxr encounterAnnita WELLS Work Phone: [phone]-Odgtn Medicine at [facility] Start: 12-11-2024 End: 49-93-6178Xyzogg flowsheetCorey Montez DO Work Phone: noms [facility]BGYNStart: 12-11-2024 End: 53-07-4949Crciyg flowsheetCorey Montez DO Work Phone: noms [facility]BGYNStart: 12-11-2024 End: 67-98-8963Pxcmmzheo Result EncounterCorey Montez DO Work Phone: noms External Department UnsolicitedStart: 12-11-2024 End: 16-20-0361hxbqnqoxotVTJSD FAZIONot AvailableStart: 12-11-2024 End: 39-00-3128Whbioh outpatient visit 15 minutesCorey Montez DO Work Phone: noms [facility] OBGYNComment on above:19 weeks gestation of (HHS-HCC); Second trimester (HHS-HCC); Thyroid disease ; Multigravida of advanced maternal age in second trimester ([facility]); Gestational diabetes mellitus (GDM), antepartum, gestational diabetes method of control unspecified([facility])Start: 12-03-2024 End: 09-82-7524ddhutolwzjMHAUGWSR BROGANProMedica Fort Pierre HospitalStart: 12-03-2024 End: 31-08-9827Xxlnfn outpatient visit 25 minutesAlisa HUTTON Work Phone: [phone]-Lezlo Medicine at [facility] Comment on above:Insulin controlled gestational diabetes mellitus (GDM) in second trimester (Primary Dx)Start: 12-03-2024 End: 17-48-5587Hgkiweuwh encounterAnni Abreu CMAMaternal- Medicine at [facility]ertart: 11-20-2024 End: 10-69-2603Ibrneg flowsheetCorey Montez DO Work Phone: noms BCP OBStart: 11-20-2024 End: 09-72-1586Vbyxxw flowsheetCorey Montez DO Work Phone: NOYS BCP OBStart: 11-20-2024 End: 94-64-3494nyzvfcsfrlOQVTO FAZIONot AvailableStart: 11-20-2024 End: 90-16-2813Gdcejw outpatient visit 15 minutesCorey Montez DO Work Phone: NOZS Piyush OBGYNComment on above:Second trimester ([facility]); 16 weeks gestation of ([facility]); Screening, , for anatomic survey ([facility]); Vaginal discharge; Sinus headacheStart: 11-19-2024 End: 56-99-3564usruivsvumPnhrow M Frey RN Work Phone: [phone]-Dprsv Medicine at [facility] Comment on above:Gestational diabetes mellitus (GDM), antepartum, gestational diabetes method of control unspecified(Primary Dx)Start: 11-04-2024 End: 85-90-3519Laexq Syd Noyola MD Work Phone: [phone]-Dhyss Medicine at [facility] Start: 10-30-2024 End: 43-28-0154Wzxwfd flowsheetCorey Montez DO Work Phone: noms [facility] OBStart: 10-30-2024 End: 37-54-0894Jxlifd flowsheetCorey Montez DO Work Phone: noms [facility] OBStart: 10-30-2024 End: 91-39-9544Oruhfj outpatient visit 15 minutesCorey Montez DO Work Phone: noms [facility] OBComment on above:Second trimester (HHS-HCC); 13 weeks gestation of (HHS-HCC); Thyroid disease ; Multigravida of advanced maternal age in second trimester (HHS-HCC); Gestational diabetes mellitus (GDM), antepartum, gestational diabetes method of control unspecified(HHS-HCC); Elevated glucose tolerance testStart: 10-30-2024 End: 79-93-1856dyipiqzjfcJUKGS FAZIONot AvailableStart: 10-29-2024 End: 74-42-2330CzxqqjIrpxqdBunny Paz APRN.CNP Work Phone: Hematology/OncologyComment on above:Refill Request Start: 10-28-2024 End: 70-19-2810Tmhlftv encounter procedureKatherine Negrete APRN.CNP Work Phone: Hematology/OncologyStart: 10-28-2024 End: 76-80-0014dhgwotpmqyDmzyd Martinez APRN.CNP Work Phone: Hematology/OncologyComment on above:Primary hypercoagulable state (HCC) (Primary Dx); CVA, old, speech/language deficit; Cerebral hyponatremia; Personal history of TIA (transient ischemic attack)Start: 10-28-2024 End: 45-96-5987Knhceikiw Gregoria Negrete APRN.CNP Work Phone: Cancer Appts MCComment on above:ResultsStart: 10-24-2024 End: 72-12-9502Qwnmtvxxh Gregoria Negrete APRN.CNP Work Phone: Hematology/OncologyComment on above:Lab OrdersStart: 10-20-2024 End: 75-05-2872IqahvoEdbgp Abhyankar MD Work Phone: Hematology/OncologyComment on above:Refill Request Start: 10-13-2024 End: 55-05-8306Mqljrd Monroe Khan RNMaternal- Medicine at [facility] CenterComment on above:Gestational diabetes mellitus (GDM), antepartum, gestational diabetes method of control unspecified(Primary Dx)Start: 10-06-2024 End: 81-07-3128Igcvbuecu Result EncounterCorey Montez DO Work Phone: noms External Department UnsolicitedStart: 10-06-2024 End: 06-81-8680Gdfrlqpaq Result EncounterCorey Montez DO Work Phone: noms External Department UnsolicitedStart: 10-02-2024 End: 54-11-9735vvwtitnpivYDCUO FAZIONot AvailableStart: 10-02-2024 End: 31-43-5444Aqfyfs outpatient visit 5 minutesNoms Bcp Ob Motnez NurseNOMS BCP OBComment on above:GA: 6p1eCxhtg: 09-11-2024 End: 61-96-5490Effarioww Result EncounterCorey Montez DO Work Phone: noms External Department UnsolicitedStart: 09-11-2024 End: 61-83-8709Wdmabyrlm Result EncounterCorey Montez DO Work Phone: noms External Department UnsolicitedStart: 09-09-2024 End: 02-87-9116dnuqshxvveQykwe A KAPLEFacility:Val PCStart: 09-09-2024 End: 43-85-9647Bhkbexb encounter procedureScomike CASAS [phone]-TsyapOhiohealth [facility] Hospital [facility] Start: 09-07-2024 End: 88-79-4468zglsjqrdylXsqwt M. DempseyFacility:GIL Pickardtart: 09-02-2024 End: 67-65-5769Tsigvnxwf encounterNatmurphy Johnson RNHematology/OncologyComment on above:Patient UpdateStart: 08-26-2024 End: 81-29-0907Farzoqrgf encounterKristofer Calix MD Work Phone: Hematology/OncologyComment on above:Lab OrdersStart: 08-23-2024 End: 71-50-6858pwkalsorpfTtgqr R FAZIOFacility:FTMCStart: 08-23-2024 End: 81-06-9954Mnpgvyn encounter procedureCorey R MONTEZ [facility] Start: 07-25-2024 End: 11-79-2009DlbyfdUllty Abhyankar MD Work Phone: Hematology/OncologyComment on above:Refill Request Start: 07-24-2024 End: 02-25-2900Drqveh flowsheetCorey Montez DO Work Phone: NOMS BCP OBStart: 07-24-2024 End: 74-41-2177Zycwco flowsheetCorey Montez DO Work Phone: NOMS BCP OBStart: 07-24-2024 End: 30-79-6584kcvrilcuhkCERTU FAZIONot AvailableStart: 07-24-2024 End: 60-50-8872Mitgmn outpatient visit 15 minutesCorey Montez DO Work Phone: NOMS BCP OBComment on above:Irregular menstrual cycle Start: 07-09-2024 End: 67-21-4729llvrcdnnbfAvwaroy A VisciFacility:FTMCStart: 07-09-2024 End: 61-68-4104Lepffnp encounter Momo [place] [facility] Start: 07-08-2024 End: 64-28-1657Lry-admission assessmentInez [place] [facility] Start: 07-07-2024 End: 25-35-7931jdiffekevaEyjgt A KAPLEFacility:Val PCStart: 06-30-2024 End: 72-93-5660kjwdmgcidpYwjkl A KAPLEFacility:Val PCStart: 06-30-2024 End: 71-17-0698Dzqmwzu encounter procedureScott A STEPHANILE [phone]-KgeebOhiohealth Marion General Hospital [facility] Start: 06-23-2024 End: 70-43-8537Huqsdx outpatient visit 15 minutesCorey Montez DO Work Phone: noms BCP OBComment on above:Vaginal bleeding; Dizziness; Abnormal TSH; Vaginal discharge; Pelvic pain in femaleStart: 06-23-2024 End: 98-36-6734nhoyzgbjhhNZJWN FAZIONot AvailableStart: 06-23-2024 End: 55-42-1006Hspioyqc Result EncounterCorey Montez DO Work Phone: noms External Department UnsolicitedStart: 06-23-2024 End: 84-31-5492Ilubyzlq Result EncounterCorey Montez DO Work Phone: noms External Department UnsolicitedStart: 06-19-2024 End: 69-99-1348jajkhqexddFHYFJE R CIERSEZWSKIFacility:FM MilanStart: 06-19-2024 End: 67-49-1800Vwiygao encounter procedureJAGURUYN Spencer BACA [phone]-BpovoOhiohealth [facility] General Hospital Family [facility] Start: 06-12-2024 End: 47-30-6515aiurzuprahMgvir R FAZIOFacility:FTSHERMAN OAKS [facility]OSSM[facility]URN CENTERtart: 06-12-2024 End: 58-82-0920Fwfpyjg encounter procedureCorey R MONTEZ [facility] Start: 06-09-2024 End: 35-66-9634usvkctqxikVrnue A KAPLEFacility:Val PCStart: 06-09-2024 End: 46-73-8281Bkdlzfj encounter procedureCorecarmen Palmer MONTEZ [facility] Start: 06-06-2024 End: 31-80-0759ngtbliemjbECVAYX A LEHMANNFacility:FT FM BellevueStart: 06-02-2024 End: 85-71-1554ehtyadmdinRSTXT FAZIONot AvailableStart: 06-02-2024 End: 44-36-9073Ayccfl outpatient visit 15 minutesCorey Montez DO Work Phone: noms BCP OBComment on above:Follow-up visit after miscarriage; Abnormal TSH; History of thyroid diseaseStart: 05-28-2024 End: 59-44-4664Ocfnpzrpm encounterKristofer Calix MD Work Phone: Cancer Appts MCStart: 05-28-2024 End: 46-10-9283Khslsm outpatient visit 25 minutesKristofer Calix MD Work Phone: Hematology/OncologyComment on above:Primary hypercoagulable state (HCC) (Primary Dx); CVA, old, speech/language deficit; Iron deficiency anemia secondary to blood loss (chronic); Vitamin D deficiency; Antiphospholipid antibody syndrome (HCC)Start: 05-28-2024 End: 78-47-4334rdldhxbxduAJRWR ABHYANKARFacility:[facility] Hospitaltart: 51-68-6789unwlqbltxiZpnpg A KAPLEFacility:Val PCStart: 05-14-2024 End: 32-87-5790Gjhqfyemv encounterRachael Johnson RNHematology/OncologyComment on above:Patient UpdateStart: 05-10-2024 End: 07-54-8378Saftzaxva Result EncounterCorey Montez DO Work Phone: noms External Department UnsolicitedStart: 05-10-2024 End: 60-19-9275Felvwcmfo Result EncounterCorey Montez DO Work Phone: noms External Department UnsolicitedStart: 05-10-2024 End: 08-10-5255cwfnsmqrqeBkytg FazioFiMary [facility] Work Phone: Start: 05-10-2024 End: 02-09-1786Zfwryhbv ReferredCorey Montez DO Work Phone: [facility]-LAB Path Spec Piyush HospStart: 05-06-2024 End: 88-77-1963xsrandlzgoPRFCS FAZIONot AvailableStart: 05-06-2024 End: 57-35-1869Kzsqxz flowsheetCorey Montez DO Work Phone: noms BCP OBStart: 05-06-2024 End: 85-37-6204Koadfh flowsheetCorey Montez DO Work Phone: noms BCP OBStart: 05-06-2024 End: 57-66-7129hzrmipptxyILHRT FAZIONot AvailableStart: 05-06-2024 End: 87-04-6229Rwboik outpatient visit 15 minutesCorey Montez DO Work Phone: noms [facility] OBComment on above:14 weeks gestation of ; Second trimester ; Confirm viability with history of miscarriage, ultrasoundStart: 04-28-2024 End: 71-96-1610KsdglwDglshSalvador Calix MD Work Phone: Hematology/OncologyComment on above:Refill Request Start: 04-12-2024 End: 51-20-8027Hapekikmc Result EncounterCorey Montez DO Work Phone: noms External Department UnsolicitedStart: 04-12-2024 End: 29-72-6044Xrmqnvjtg Result EncounterCorey Montez DO Work Phone: noms External Department UnsolicitedStart: 04-05-2024 End: 82-15-4479Qaogsoptl Result EncounterCorey Montez DO Work Phone: [facility] External Department UnsolicitedStart: 04-05-2024 End: 65-99-0208Omoybsngs Result EncounterCorey Montez DO Work Phone: noms External Department UnsolicitedStart: 04-04-2024 End: 07-58-1781fjtstboitzJROVI FAZIONot AvailableStart: 04-04-2024 End: 42-03-9400Bxkpgc outpatient visit 5 minutesNoms Bcp Ob Montez NurseNOMS BCP OBComment on above:GA: 8h9zFilzo: 03-01-2024 End: 24-59-8045opysqttdzzQwifu R FAZIOFacility:FTMCStart: 03-01-2024 End: 90-89-0246Cnmzbpg encounter procedureCorey R MONTEZ [facility] Start: 02-27-2024 End: 65-40-4943kewceoguouRzfsw R FAZIOFacility:FTMCStart: 02-27-2024 End: 35-28-2470Mpibgwkdr encounterNatalitae Johnson RNHematology/OncologyComment on above:Patient QuestionStart: 02-25-2024 End: 43-68-4607qwjlxywykwDncnk R FAZIOFacility:FTMCStart: 02-25-2024 End: 30-97-3657Yweaokd encounter procedureCorey R MONTEZ [facility] Start: 02-23-2024 End: 50-17-3266lzxxyjryvlZgdqn A KAPLEFacility:FTMCStart: 02-23-2024 End: 27-01-6290Cwdfmvq encounter procedureCorey R MONTEZ [facility] Start: 02-05-2024 End: 99-62-4499ertrpwndluXvzfj A KAPLEFacility:Val PCStart: 02-05-2024 End: 69-46-8986Oycnqoi encounter procedureScott Cecily CASAS [phone]-LdcszOhiohealth [facility] Hospital [facility] Start: 02-05-2024 End: 74-45-7402Qvtx adult monitoring check doneScroger CASAS [phone]-FuoomOhiohealth [facility] Hospital [facility] Start: 02-02-2024 End: 43-08-0758jxqckeutsuIqejvy GudimellaFacility:CC NorwalkStart: 02-02-2024 End: 83-24-9652Jsejcok encounter procedurePreeti Luila [phone]-JlfdjOhiohealth [facility] General Hospital [facility] Start: 27-85-2722wwjzrvokpqSwnbk A KAPLE Facility:[place] PCStart: 01-24-2024 End: 87-06-4897BfxglpDkdrf Abhyankar MD Work Phone: Hematology/OncologyComment on above:Refill Request Start: 01-02-2024 End: 25-76-5023Ivghmnfpt encounterKristofer Calix MD Work Phone: Cancer Appts MCComment on above:ResultsStart: 01-02-2024 End: 37-35-8088Amibtf outpatient visit 15 minutesKristofer Calix MD Work Phone: Hematology/OncologyComment on above:Iron deficiency anemia secondary to blood loss (chronic) (Primary Dx); Vitamin D deficiency; Malaise and fatigueStart: 12-17-2023 End: 86-76-7169Psrupkwvy encounterRachael Johnson RNHematology/OncologyStart: 12-06-2023 End: 73-38-9919afbatvrxgbLixibbjpy L ClarkFacility:FTMCStart: 12-06-2023 End: 78-67-3737Ptmylsx encounter procedureMonica Saba [facility] Start: 85-29-8395kbzpzrkzjoPvlbt A KAPLE Facility:Val PCStart: 11-29-2023 End: 65-59-5980lmpzijwwetMiypm Abhyankar MD Work Phone: Hematology/OncologyComment on above:Iron infusion side effects?Refill RequestIron deficiency anemia of (Primary Dx); Iron deficiency anemia secondary to blood loss (chronic)Start: 11-22-2023 End: 54-06-4902uxttybeafdOizch [address] Work Phone: Hematology/OncologyComment on above:Iron deficiency anemia of (Primary Dx); Iron deficiency anemia secondary to blood loss (chronic)Start: 11-15-2023 Telephone encounterFinancial Navigator Delgado Work Phone: Hematology/OncologyStart: 11-15-2023 End: 68-98-9980egjukzhvuwXxaek [address] [place] Work Phone: Hematology/OncologyComment on above:Iron deficiency anemia of (Primary Dx); Iron deficiency anemia secondary to blood loss (chronic)Start: 11-09-2023 End: 39-81-6499Pgecgvl encounter procedureMonica Saba [phone]-XanwqOhiohealth [facility] General Hospital [facility] Start: 11-09-2023 End: 12-19-5593Xoevqb WorkLormoe FLYNNWHematology/OncologyStart: 11-05-2023 Telephone encounterKristofer Calix MD Work Phone: Cancer Appts MCComment on above:AppointmentStart: 10-23-2023 End: 62-64-4605joauqfxvvgBaehkeq Grace MisslerFacility:Val PCStart: 10-23-2023 End: 51-54-2362Orgoskx encounter procedureLourdes Garber [phone]-LzcclOhiohealth Marion General Hospital [facility] Start: 09-28-2023 End: 69-34-9676Cwzxvsecs department patient Marta Uribe [facility] Start: 09-28-2023 End: 43-39-0380jbqctnvxxcKUDelma DUNHAMFacility:GIL TaylorkStart: 09-28-2023 End: 99-99-1721Nuhgzus encounter procedureJANET DUNHAM [phone]-MujvqOhiohealth [facility] General Hospital [facility] Start: 84-33-8178Oaonckgkv encounterKristofer Calix MD Work Phone: Cancer Appts MCComment on above:Appointment RescheduledStart: 09-21-2023 End: 15-61-5605siaedziaijZzcef Abhyankar MD Work Phone: Hematology/OncologyComment on above:Iron deficiency anemia secondary to blood loss (chronic) (Primary Dx)Start: 09-21-2023 End: 56-73-8710Dvrmqhzdauoh consultation with patientKristofer Calix MD Work Phone: Hematology/OncologyStart: 08-03-2023 End: 90-30-0919emovzawymxSiolw A KAPLEFacility:Val PCStart: 08-03-2023 End: 03-84-7036Ksmbyah encounter procedureScomike CASAS [phone]-XlegmOhiohealth Marion General Hospital [facility] Start: 06-29-2023 End: 38-60-3795brkkvzoyjtGosyu A KAPLEFacility:Val PCStart: 06-29-2023 End: 01-91-0023Uzcccrv encounter procedureScomike CASAS [phone]-QipvyOhiohealth Marion General Hospital [facility] Start: 24-38-1994oysvwxwzejDnsnakd [facility] md associate/OncologyComment on above:Lab results/recommendationsStart: 06-19-2023 E-mail encounter from Jose Carlos Johnson RNSDENZELUSKYStart: 06-15-2023 End: 10-62-0108Edvrgy outpatient visit 25 minutesKristofer Calix MD Work Phone: Hematology/OncologyComment on above:Vitamin D deficiency (Primary Dx); Hypercalcemia; Iron deficiency anemia secondary to blood loss (chronic)Start: 06-15-2023 Telephone encounterKristofer Calix MD Work Phone: Cancer Appts MCComment on above:ResultsStart: 19-03-3300Klcsqnlom encounterKristofer Calix MD Work Phone: Hematology/OncologyComment on above:Lab OrdersStart: 43-59-6784Ayspxyrud encounterKristofer Calix MD Work Phone: CanEagle Creek [employer]able [employer] Appts MCComment on above:Future Appointment Start: 05-31-2023 End: 47-74-4563gpfpyxspdxLwlzs Abhyankar MD Work Phone: Hematology/OncologyComment on above:Primary hypercoagulable state (HCC) (Primary Dx); CVA, old, speech/language deficit; Hypercalcemia; Vitamin D deficiency; Iron deficiency anemia secondary to blood loss (chronic); Malaise and fatigueStart: 05-31-2023 End: 51-10-7043Ooyaphxggmzj consultation with Song Calix MD Work Phone: SANDUSKYStart: 05-25-2023 End: 37-20-4566ahfvnlipobUlfnq A KAPLEFacility:Val PCStart: 05-25-2023 End: 14-63-7356Alaqnii encounter Coreen CASAS [phone]-YvrfcOhiohealth [facility] General Hospital [facility] Start: 05-01-2023 End: 39-33-7155bdqjlzefoiMznog A KAPLEFacility:FTMCStart: 04-27-2023 End: 23-90-1072Eec Drop offScott A STEPHANILE [facility] Start: 04-27-2023 End: 10-47-7123kiamtmuglnZutag A KAPLEFacility:FTMCStart: 04-25-2023 End: 64-32-0747iomzgbfhrvNwcr L SchwabFacility:FT BellevueStart: 03-19-2023 End: 50-35-2178uxkcjayzwzMscbqVernell Calix MD Work Phone: Hematology/OncologyComment on above:Primary hypercoagulable state (HCC) (Primary Dx); Iron deficiency anemia secondary to blood loss (chronic); Vitamin D deficiency; CVA, old, speech/language deficit; Antiphospholipid antibody syndrome (HCC)Start: 03-19-2023 End: 56-20-0237Ibstctcmlcsc consultation with Song Calix MD Work Phone: SANDUSKYStart: 02-15-2023 End: 88-93-9350pnywprudxuYzhzt A STEPHANILEFacility:Val PCStart: 02-15-2023 End: 64-10-4507Jjrybyq encounter procedureScomike A PRAVEEN [phone]-XmtozOhiohealth [facility] Hospital [facility] Start: 02-20-9020qqfjdmvduwRnomg A PRAVEEN Facility:Val PCStart: 12-26-2022 End: 24-72-9708tvvuiqwkkaPbosbkp Grace MisslerFacility:Val PCStart: 12-26-2022 End: 10-53-2670Xvkprtr encounter procedureLourdes Garber [phone]-ZcxlsOhiohealth [facility] General Hospital [facility] Start: 12-22-2022 End: 62-25-7881ubinhxdunxVkecuVernell Calix MD Work Phone: Hematology/OncologyComment on above:Primary hypercoagulable state (HCC) (Primary Dx); Iron deficiency anemia of ; Iron deficiency anemia secondary to blood loss (chronic); Vitamin D deficiencyStart: 12-22-2022 End: 52-64-6467Aedmhonqyglw consultation with Song Calix MD Work Phone: SANDUSKYStart: 57-83-3475Nhhbkmhdm encounterKristofer Calix MD Work Phone: Cancer Appts MCComment on above:AppointmentStart: 10-20-2022 End: 55-91-9103Odvzslb encounter procedureSelissa CASAS [phone]-UspchOhiohealth [facility] Hospital [facility] Start: 09-28-2022 End: 75-42-5969hjudsshdurLkusu Abhyankar MD Work Phone: Hematology/OncologyComment on above:Primary hypercoagulable state (HCC); CVA, old, speech/language deficit; Cerebral hyponatremiaStart: 09-28-2022 End: 95-76-6488Currmfehzoun consultation with Song Calix MD Work Phone: SANDUSKYStart: 09-26-2022 End: 44-52-4887Xbcboti encounter procedureKristofer Calix [facility] Start: 24-71-3063Eazxplwrn encounterValeri Yeung RN Hematology/OncologyComment on above:OrdersStart: 09-05-2022 End: 29-19-9166Trsokpd encounter procedureCorey Spencre HERRMANN [facility] Start: 08-07-2022 End: 55-19-2418Dxsgkzz encounter procedureCorecarmen HERRMANN [facility] Start: 07-27-2022 End: 23-78-5517Lslkfy outpatient visit 25 minutesKristofer Calix MD Work Phone: Hematology/OncologyComment on above:Primary hypercoagulable state (HCC) (Primary Dx); Iron deficiency anemia secondary to blood loss (chronic); CVA, old, speech/language deficitStart: 03-73-6473JvlazyJapnt Abhyankar MD Work Phone: Hematology/OncologyComment on above:Refill Request Start: 05-16-2022 End: 61-04-1609fauimuidqgEC WILTON FAZIOFacility:V2Xpgsm: 05-10-2022 End: 55-70-8933framlfbjrlRT WILTON FAZIOFacility:O1Yvlsq: 05-08-2022 End: 15-18-2531Mgvupfchfy and management of inpatientDR KALPANA THOMAS Facility:F0Ydftx: 05-05-2022 End: 36-84-3765htnjwhdsvuAB KLAPANA THOMASFacility:O5Tsuny: 05-01-2022 End: 84-71-7569nzkpchhbtrRW WILTON FAZIOFacility:U4Oaybp: 04-28-2022 End: 09-94-9333ceumwjzspiJL WILTON FAZIOFacility:I5Wwwwz: 04-24-2022 End: 36-00-7174htdgackwkgUI KALPANA THOMASFacility:O3Fbhub: 04-20-2022 End: 15-42-6526ttdyvwfxnjOuvuy [address] [place] Work Phone: Hematology/OncologyComment on above:Iron deficiency anemia secondary to blood loss (chronic) (Primary Dx); Iron deficiency anemia of pregnancyStart: 04-19-2022 End: 90-28-9046drgyzvmzziJA WILTON FAZIOFacility:N6Ekbdi: 04-14-2022 End: 18-54-7984gxbudooywuUK WILTON FAZIOFacility:R2Fhdcq: 04-07-2022 End: 63-79-0791lulrhajgowTB WILTON FAZIOFacility:P5Wjdyr: 39-41-8725VbilitPbuyc Abhyankar MD Work Phone: Hematology/OncologyComment on above:Refill Request Start: 04-05-2022 End: 02-84-1533kfwpcjykfgKozqh Stew Work Phone: Hematology/OncologyComment on above:Iron deficiency anemia secondary to blood loss (chronic) (Primary Dx); Iron deficiency anemia of pregnancyStart: 27-78-2708Hgvhiilim encounterMeme Gonzalez RNHematology/OncologyComment on above:Appointment; Patient Question; Medication Question; OrdersStart: 03-31-2022 End: 96-30-2257kxgutqysrwIW WILTON FAZIOFacility:Z6Psgtp: 03-27-2022 End: 44-21-4566clyhzengkfFejhf Abhyankar MD Work Phone: Hematology/OncologyComment on above:Iron deficiency anemia secondary to blood loss (chronic); Iron deficiency anemia of pregnancyStart: 03-27-2022 End: 70-62-0890Pbfukwf encounter procedureKristofer Calix MD Work Phone: SANDUSKYStart: 39-04-6385Wqdieapnf encounterKristofer Calix MD Work Phone: Cancer Appts MCComment on above:ResultsStart: 03-24-2022 End: 25-15-5394aafqiekiyiJX WILTON FAZIOFacility:F5Wmpop: 03-16-2022 End: 23-32-5103nnqxoxlahaFJ WILTON FAZIOFacility:Q9Rsujj: 02-24-2022 End: 41-72-3644rxkdnibebaHC WILTON FAZIOFacility:D4Wpzdm: 02-14-2022 End: 79-19-9872wlpoxicpqyQN WILTON FAZIOFacility:J7Uzaxz: 01-30-2022 End: 19-76-5935uihdtpgtpyBhtrsVernell Calix MD Work Phone: Hematology/OncologyComment on above:Primary hypercoagulable state (HCC) (Primary Dx); CVA, old, speech/language deficit; Antiphospholipid antibody syndrome (HCC); Anemia, unspecified typeStart: 01-30-2022 End: 70-82-6575Agzpghy encounter procedureKristofer Calix MD Work Phone: SANDUSKYStart: 01-24-2022 End: 39-09-1766ejricaexajPF WILTON FAZIOFacility:B6Tzgfl: 01-24-2022 End: 52-56-6506nazwlihepdUV WILTON FAZIOFacility:A4Gosrs: 01-07-2022 End: 63-31-3683opotuoummtUS WILTON FAZIOFacility:Z0Iyhlo: 88-55-8780EpukkpZmtqzhAwilda Pope RN Work Phone: Hematology/OncologyComment on above:Refill Request Start: 12-28-2021 End: 94-52-6613kelwhlkuwdDF WILTON FAZIOFacility:G7Fdrle: 11-21-2021 End: 95-86-9576kvwarltovoGKZRGMercy Health Willard Hospitaltart: 11-21-2021 End: 04-92-4196Rvgieokldx hospital visit by Sean Casas Work Phone: stVZ LaboratoryStart: 11-14-2021 End: 30-76-5446Edctufv encounter procedureSUniversity [facility] Start: 90-90-5995owreqycezkSY WILTON FAZIOFacility:H1 Start: 10-25-2021 End: 10-83-2178cnhubtqgzfYF WILTON FAZIOFacility:C4Rylyq: 49-97-0740KdqmboEezsv Nickelson RNHematology/OncologyComment on above:Refill RequestStart: 09-23-2021 End: 52-42-8377iypnoqfhsiAY WILTON FAZIOFacility:K0Gvwtp: 62-69-9275Narbifxxo encounterMeme Easton RNHematology/OncologyComment on above:Medication QuestionStart: 31-22-6714Qqrcznaxo encounterMeme Easton clinic md associate/OncologyComment on above:Patient QuestionStart: 09-01-2021 End: 85-18-4661svzvepuypeRW WILTON FAZIOFacility:C2Ipoca: 08-31-2021 End: 63-99-5141Chpftem encounter procedureScomike CASAS [facility] Start: 08-29-2021 End: 06-99-4735dkcakfzglqZE WILTON FAZIOFacility:T6Pgsnz: 08-26-2021 End: 82-13-3826wolddhaqxlSU WILTON FAZIOFacility:W9Idqlf: 08-24-2021 End: 28-49-1683svtinezqdeNE WILTON FAZIOFacility:J8Khhsf: 30-78-7305Nrrbiyjlt encounterErica Rustam RNHematology/OncologyComment on above:Patient Question Start: 08-19-2021 End: 27-37-5112Ikbxbqz encounter Precious Rachel BARBRAMICHELLE [facility] Start: 08-19-2021 End: 17-03-8010Qmv Drop offJULISAADRYAN LONGORIA [facility] Start: 08-19-2021 End: 21-01-1352Hadejzb encounter BrandieADRYAN LONGORIA [phone]-CmtmqOhiohealth [facility] Start: 25-43-8417Egofkcrku encounterKristofer Calix MD Work Phone: Cancer Appts MCComment on above:Future Appointment Start: 08-01-2021 End: 62-31-2308Iatkzwm evaluation of patient and reportMa Nurse Delgado Golden Work Phone: Hematology/OncologyComment on above:Infective urethritis (Primary Dx)Start: 38-45-9696Rbxfrzn encounter procedureHaseeb MorelFacility:[facility] BStart: 20-53-7095Xksvses encounter procedure ERIKA LONDONFacility:[id number]: 05-25-2017 End: 50-74-6118XpeuhwlogfRLLMO R [facility] Procedures DateProcedureProcedure DetailPerforming ClinicianStart: 30-86-7853OI OB BPP W NON-STRESSCorey Montez DO Work Phone: Start: 09-36-6256AK OB BPP W NON-STRESSCorey Montez DO Work Phone: Start: 23-34-4980Uqcxn dip stick/tablet rgnt non-auto w/o micrscpCorey Montez DO Work Phone: Start: 24-79-7434SC OB BPP W NON-STRESSCorey Montez DO Work Phone: Start: 72-22-2017ER OB GROWTHCorey Montez DO Work Phone: Start: 16-82-9885Zdgdf dip stick/tablet rgnt non-auto w/o micrscpCorey Montez DO Work Phone: Start: 68-07-7245Nydgq dip stick/tablet rgnt non-auto w/o micrscpCorey Montez DO Work Phone: Start: 05-15-3588Zqwtw dip stick/tablet rgnt non-auto w/o micrscpCorey Montez DO Work Phone: Start: 28-80-7666WO OB CERVICAL LENGTHCorey Montez DO Work Phone: Start: 33-14-4675IBT UA (CLEAN/CATCH) INVESTMENT FUND MANAGER/MICRO IF IND.Wilton Montez DO Work Phone: Start: 38-01-9839AEN THYROID STIM HORMONECorey Montez DO Work Phone: Start: 02-05-0602Svnob dip stick/tablet rgnt non-auto w/o micrscpCorey Montez DO Work Phone: Start: 15-00-7036Szxii dip stick/tablet rgnt non-auto w/o micrscpCorey Montez DO Work Phone: Start: 60-32-5922Sqqvknz quantitative blood xcpt reagent stripStar Waggoner MD Work Phone: Start: 61-72-4691Rrixl dip stick/tablet rgnt non-auto w/o micrscpCorey Montez DO Work Phone: Start: 74-94-3251Odqmk of thyroid stimulating hormone tshNot In System Ref ProvStart: 58-13-9257Wzoqmder screenMukul Noyola MD Work Phone: Start: 83-45-1217Nxao scrn 1+ class nonchromoNot In System Ref ProvStart: 15-02-6883Ixsnquuwsv glycosylated f8eVqrlmgnm Provider ExternalStart: 82-22-9528LTO 1&2 AB/AG SCREEN (P24 AG)Not In System Ref Prov Start: 04-58-6151Idhs ia hepatitis b surface antigenNot In System Ref ProvStart: 64-06-8849HTLG AND SCREENNot In System Ref ProvStart: 34-11-1389BRS CBC WITH AUTO DIFFCorey Montez DO Work Phone: Start: 80-17-1307Cqncm dip stick/tablet rgnt non-auto w/o micrscpCorey Montez DO Work Phone: Start: 67-44-4808LP OB TRANSVAGINALCorey Montez DO Work Phone: Start: 81-26-5283Aluod test visual color cmprsn methsCorey Montez DO Work Phone: Start: 08-35-3364UJJNQYENE VAGINITIS (HTRX)Wilton Montez DO Work Phone: Start: 76-42-6340Brzhw dip stick/tablet rgnt non-auto w/o micrscpCorey Montez DO Work Phone: Start: 42-21-1203XN PELVISCorey Montez DO Work Phone: Start: 32-69-1834Oi uterus limited 1/> fetusesCorey Montez DO Work Phone: Start: 59-99-7783QYW CBC WITH AUTO DIFFCorey Montez DO Work Phone: Start: 34-89-6248UTF IMMUNOGLOBULIN GCorey Montez DO Work Phone: Start: 63-04-1666ANK IMMUNOGLOBULIN MCorey Montez DO Work Phone: Start: 31-57-0879WAW MISCELLANEOUS TESTCorey Montez DO Work Phone: Start: 56-40-8355ZMT APTTCorey Montez DO Work Phone: Start: 82-53-5769NGULGH V LEIDEN MUTATIONCorey Montez DO Work Phone: Start: 81-93-0062ZTPAP HOMOCYSTEINECorey Montez DO Work Phone: Start: 66-29-2645TWXV FIBRINOGENCorey Montez DO Work Phone: Start: 48-63-5078NNEWWTP C-FUNCTIONALCorey Montez DO Work Phone: Start: 26-02-6348YQGVYWZ S-ANTIGENCorey Montez DO Work Phone: Start: 85-97-6919IAGLSC PROTHROMBIN TIME INR W/O COUM Wilton Montez DO Work Phone: Start: 66-33-5018DOQ ANTITHROMBIN ACTIVITYCorey Montez DO Work Phone: Start: 59-74-2971Gocxe dip stick/tablet rgnt non-auto w/o micrscpCorey Montez DO Work Phone: Start: 90-34-0838FKD TESTCorey Montez DO Work Phone: Start: 23-00-4804AIB DRUG SCREEN RAPID (URINE)Wilton Montez DO Work Phone: Start: 53-54-5851QN OB TRANSVAGINALCorey Montez DO Work Phone: Start: 04-04-2024 End: 70-25-8481Zqbcf dip stick/tablet rgnt non-auto w/o micrscpCorey Montez DO Work Phone: Start: 15-83-9906Afqbgej refused by patient Immunization not carried out because of patient decisionNoms NurseStart: 12-02-6127Ecnhlang of Products of Conception, External ApproachDR WILTONCarmen PATRICKO Start: 04-31-9175Nxqa bld gluc mntr dev cleared fda spec home useCcf Provider Start: 98-78-7265Qmtuprespby observation [Identifier] in Cervix by Cyto stain Wilton Herrmann DO Work Phone: Start: 11-21-2021 End: 06-77-7587Pmvoq-fetoprotein serumScanning Provider ExternalStart: 11-21-2021 End: 07-45-5132QTWXGWX STUDY NON-PROMEDICAScanning Provider ExternalStart: 98-69-7110DGEFQYAOFSPXJ TESTINGSraubrie Lopez MD Work Phone: Start: 27-42-4944Nzpbm depression screening assessment Nevin Golden Work Phone: Start: 39-79-6267VLA CULTUREDHRUV PATELStart: 93-09-5295XEMQXXJKL PATELStart: 77-69-6364DDO CELL COUNT WITH DIFFERENTIALDHRUV PATELStart: 05-96-1596LCEMPWF SIMPSON VIRUS PCRDHRUV PATELStart: 79-70-5528RFMLPTJ, CSFDHRUV PATELStart: 59-55-0152CVUEML BASIC PROTEIN, CSFDHRUV PATELStart: 15-69-1371KRTQNMVDSIN BANDINGDHRUV PATELStart: 94-30-4797ADRJEUE, CSFDHRUV MONGE Start: 95-19-4727ZGFIYGF-INRDHRUV PATELStart: 44-47-8648Ljftqo puncture lumbar diagnosticDHRUV PATELStart: 59-85-1140LKNGGMIULFLYLGZZ ANTIBODY PANELDHRUV MONGE Start: 70-80-5822NVUKCKNECEP AB IGG, IGM, IGADHRUV PATELStart: 01-00-8785AIWBXOK PATELStart: 66-66-9274GGOMFRIRUQVL, SERUMDHRUV PATELStart: 51-55-9482SZCX ARUP 1DHRUV PATELStart: 62-70-8134IRGAKEEDACH PATELStart: 80-60-9177QNDONHLZTBOF PATELStart: 35-49-5953Byiyel of breastDERIK SIDELL Start: 70-72-8061Rymngazolb of wisdom toothDERIK SIDELL endoscopy for ovarian cysts to drainDERIK SIDELL Vaccine refused by patientCOVID-19 vaccine dose declined( Confirmed )PERNELL SIDELL Plan of Treatment DateCare ActivityDetailAuthorStart: 02-68-3436RKY Vaccine (1 - 1-dose 75+ series)RSV Vaccine (1 - 1-dose 75+ series)[facility]tart: 54-55-0678Gnrxm BMI ScreeningAdult BMI ScreeningProOhiohealth Mansfield Hospital SystemStart: 11-42-8424Lxzqejl ScreeningTobacco ScreeningProOhiohealth Mansfield Hospital SystemStart: 60-69-0077Hpluoxy ScreeningTobacco ScreeningQuorum Healthtart: 01-05-2026 End: 26-42-8718LS MFM with or without consultUS MFM with or without consult Imaging Routine Multigravida of advanced maternal age in second trimester Antiphospholipid syndrome complicating , antepartum Gestational diabetes mellitus (GDM) in second trimester controlled on oral hypoglycemic drug AMA (advanced maternal age) ibnhpmciqbpq76+, second trimester Hypothyroidism, unspecified type History of stroke History of loss in prior , currently in second trimester Hypothyroidism affecting in second trimester Family history of autism Hyponatremia Expected: 01/05/2026 (Approximate), Expires: 01/05/2026[facility] Work Phone: comment on above:Expected: 01/05/2026 (Approximate), Expires: 01/05/2026Start: 81-15-3233Gyndg BMI ScreeningAdult BMI Screening [facility] Healthtart: 27-10-8993Vdtadwj ScreeningTobacco Screening [facility] Healthtart: 75-58-3189Yiofj BMI ScreeningAdult BMI Screening [facility] Healthtart: 03-17-2025 End: 48-27-7708Mzbgywzoxgmo consultation with zfuthpj2603/17/2025 8:30 AM EST Telemedicine [facility] Rheumatology, A Department of [address] [phone] Sam Callahan MD [address] [address] [facility] Rheumatology, A Department of [facility]: 03-10-2025 End: 62-34-7860Ygvlbpg encounter szusjqthf45/11/2025 9:50 AM EST Routine [facility] [address] [facility] [address] [id number] Wilton Herrmann DO [address] [facility] [address] [place] [address] [facility] Piyush OBGYNStart: 03-10-2025 End: 48-55-8173Gxcvxplmhagt consultation with wquvpnj7303/10/2025 8:00 AM EST Telemedicine Maternal- Medicine at [facility] [address] [place] [address] Sana Palma MD [address] [place] [address] [facility]: 03-02-2025 End: 28-05-9507Gjnwks-up cdekhnrem19/03/2025 11:30 AM EST Visit (SP) Office Hematology/Oncology [address] [place] [address] [place] [address] Katherine Negrete APRN.POWER WASHER [address] [place] [address] 2 month follow upHematology/OncologyComment on above:2 month follow upStart: 03-02-2025 End: 08-17-5525Cahqsbi encounter vavsyzrum05/03/2025 11:15 AM EST Office Visit [facility] [address] [place] [address] labNortForest View Hospital LaboratoryComment on above:labStart: 02-23-2025 End: 35-93-1874Optuufb encounter wrjoffmft17/27/2025 9:00 AM EDT Routine NOMJaylan [place] OBGYN [address] [facility] [facility] [address] [place], [id number] Wilton Herrmann DO [address] [place] [address] NOMJaylan [place] OBGYNStart: 02-18-2025 End: 73-32-2583UUQ W Auto Differential panel - BloodCOMPLETE BLOOD COUNT AND DIFFERENTIAL Lab Routine 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) Vitamin D deficiency Primary hypercoagulable state (HCC) Expected: 02/18/2025, Expires: 05/20/2025leveland ClinicComment on above:Expected: 02/18/2025, Expires: 05/20/2025Start: 02-18-2025 End: 78-71-5364Ekutciaiwmvuo metabolic 2000 panel - Serum or PlasmaCOMPREHENSIVE METABOLIC PANEL Lab Routine Antiphospholipid antibody positive Iron deficiency anemiasecondary to blood loss (chronic) Vitamin D deficiency Primary hypercoagulable state (HCC) Expected: 02/18/2025, Expires: 05/20/2025leveland ClinicComment on above:Expected: 02/18/2025, Expires: 05/20/2025Start: 02-16-2025 End: 69-71-1025Pvbyvvr encounter procedureProMedica Rheumatology, A Department of [facility]ertart: 97-50-2263Cwkhpyoca for malignant neoplasm of cervixNOMS HealthcareStart: 02-09-2025 End: 25-58-2221BZ biophysical profile w non stress testUS biophysical profile w non stress test Imaging Routine Third trimester ([facility]) 28 weeks gestation of ([facility]) Anemia complicating childbirth ([facility]) Anticoagulant long-term use Antiphospholipid antibody positive Blood pressure elevated without history of HTN Coagulation defect, unspecified ([facility]) Expected: 02/09/2025 (Approximate), Expires: 08/10/2025 NOM[facility] HealthcareComment on above:Expected: 02/09/2025 (Approximate), Expires: 08/10/2025Start: 02-09-2025 End: 43-43-6621YK for pregnancyUS OB follow up transabdominal approach Imaging Routine Third trimester ([facility]) 28 weeks gestation of ([facility]) Anemia complicating childbirth ([facility]) Anticoagulant long-term use Antiphospholipid antibody positive Blood pressure elevated without history of HTN Coagulation defect, unspecified ([facility]) Expected: 02/09/2025, Expires: 06/12/2025NOMS HealthcareComment on above:Expected: 02/09/2025, Expires: 06/12/2025Start: 02-09-2025 End: 52-68-6803Rzpzecr encounter /13/2025 10:30 AM EDT Routine SHILOH COLVIN [address] [place] [address] Wilton Herrmann DO [address] [place] [address] SHILOH HAMILTONtart: 02-06-2025 End: 35-66-9887Ewrxyahmhjrc consultation with tqfqplz2302/06/2025 2:00 PM EDT Telemedicine Maternal- Medicine at [facility] [address] [place] [address] Mukul Noyola MD [address], [address] [place] [address], [place] [address] [facility]: 02-05-2025 End: 14-09-1938Kgeaesk encounter cxalheagn06/09/2025 1:00 PM EDT Appointment [facility] [address] [facility] [address] [place] [address] [facility] Medicine NorthridgeStart: 02-01-2025 End: 24-85-6169Cczx complete W/O contrastEcho complete W/O contrast Echocardiography Routine 22 weeks gestation of Antiphospholipid syndrome complicating , antepartum Multigravida of advanced maternal age in second trimester Expected: 02/01/2025 (Approximate), Expires: 01/01/2026 [facility] Work Phone: comment on above:Expected: 02/01/2025 (Approximate), Expires: 01/01/2026Start: 01-19-2025 End: 00-98-5187Gbzocoz encounter tszjteiho78/22/2025 9:00 AM EDT Routine NOMJaylan COLVIN [address] [place], [phone] Wilton Herrmann, [address] [place] [address] NOMJaylan [place] OBGYNStart: 01-13-2025 End: 25-18-4014Mmfrddywhitq consultation with sqwgcad8701/13/2025 10:00 AM EDT Telemedicine Maternal- Medicine at [facility] [address] [place] [phone] Roxana Smith, NELI [address] [place] [address], [id number] [facility]: 01-05-2025 End: 06-56-0536Qqsmnta encounter swpnbqzna56/08/2025 2:40 PM EDT Routine NOMJaylan [place] OBGYN [address] [facility] [address] [address] [place], [id number] Wilton Herrmann DO [address] [place] [address] [facility] Piyush OBGYNStart: 01-05-2025 End: lead ECGECG 12 lead unit performed ECG Routine Thyroid disease Gestational diabetes mellitus (GDM), antepartum, gestational diabetes method of control unspecified ([facility]) Multigravida of advanced maternal age in second trimester ([facility]) Lightheaded Dizziness Expected: 01/05/2025 (Approximate), Expires:01/05/2026N[facility] HealthcareComment on above:Expected: 01/05/2025 (Approximate), Expires: 01/05/2026Start: 01-05-2025 End: 63-97-6019Pxrhqieuiezlcr 2D completeEchocardiogram 2D complete Echocardiography Routine Thyroid disease Gestational diabetes mellitus (GDM), antepartum, gestational diabetes method of control unspecified ([facility]) Multigravida of advanced maternal age in second trimester ([facility]) Lightheaded Dizziness Expected: 01/05/2025 (Approximate), Expires: 01/05/2027[facility] Work Phone: comment on above:Expected: 01/05/2025 (Approximate), Expires: 01/05/2027Start: 01-01-2025 End: 37-44-6203Idcutkbwdpki consultation with lrlumwg5501/01/2025 2:30 PM EDT Telemedicine [facility] [address] [facility] [address] [place] [address] Mukul Noyola MD [address] [facility], [address] [place] [address] [facility]ridgeStart: 01-01-2025 End: 10-72-8124PB MFM with or without consultUS MFM with [...] on above:Expected: 01/01/2025, Expires: 01/01/2026Start: 01-01-2025 End: 45-59-5471Ksbcfme encounter buebkdkqb61/04/2025 1:00 PM EDT Appointment [facility] [address] [facility] [address] [place] [address] M[facility] Medicine NorthridgeStart: 12-29-2024 COVID-19 Vaccine ( season)COVID-19 Vaccine ( season)[facility]Start: 23-55-7623Bfmernvgn vaccinationProMedica Fostoria Community Hospitaltart: 12-24-2024 End: 27-08-3693TRK W Auto Differential panel - BloodCOMPLETE BLOOD COUNT AND DIFFERENTIAL Lab Routine Primary hypercoagulable state (HCC) CVA, old, spee ch/language deficit Cerebral hyponatremia Personal history of TIA (transient ischemic attack) Expected: 12/24/2024, Expires: 03/25/2025[facility] Work Phone: Comment on above:Expected: 12/24/2024, Expires: 03/25/2025Start: 12-24-2024 End: 51-27-3521Egnqgdkpm (Vitamin B12) [Mass/volume] in Serum or PlasmaVITAMIN B12 Lab Routine Primary hypercoagulable state (HCC) CVA, old, speech/language deficit Cerebral hyponatremia Personal history of TIA (transient ischemic attack) Expected: 12/24/2024, Expires: 03/25/2025[facility] ClinicComment on above:Expected: 12/24/2024, Expires: 03/25/2025Start: 12-24-2024 End: 70-79-6379Mqyczwsryhzrl metabolic 2000 panel - Serum or PlasmaCOMPREHENSIVE METABOLIC PANEL Lab Routine Primary hypercoagulable state (HCC) CVA, old, speech/language deficit Cerebral hyponatremia Personal history of TIA (transient ischemic attack) Expected: 12/24/2024, Expires: 03/25/20[facility] Comment on above:Expected: 12/24/2024, Expires: 03/25/2025Start: 12-24-2024 End: 83-19-0340Ziurzoru [Mass/volume] in Serum or PlasmaFERRITIN Lab Routine Primary hypercoagulable state (HCC) CVA, old, speech/language deficit Cerebral hyponatremia Personal history of TIA (transient ischemic attack) Expected: 12/24/2024, Expires: 03/25/2025[facility] ClinicComment on above:Expected: 12/24/2024, Expires: 03/25/2025Start: 12-24-2024 End: 60-26-1882Kiex and Iron binding capacity panel - Serum or PlasmaIRON AND TIBC Lab Routine Primary hypercoagulable state (HCC) CVA, old, speech/language deficit Cerebral hyponatremia Personal history of TIA (transient ischemic attack) Expected: 12/24/2024, Expires: 03/25/2025[facility] ClinicComment on above:Expected: 12/24/2024, Expires: 03/25/2025Start: 12-23-2024 End: 790765-mypwhqbsvyqbpi D3 [Mass/volume] in Serum or PlasmaVITAMIN D 25 HYDROXY Lab Routine 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) Vitamin D deficiency Expected: 12/23/2024, Expires: 03/24/2025[facility] Work Phone: Comment on above:Expected: 12/23/2024, Expires: 03/24/2025Start: 12-22-2024 End: 13-84-3928Ytxfmf-up mewmlgeac62/25/2025 1:30 PM EDT Visit (SP) Office Hematology/Oncology [address] [place] [address] [place], [place] [phone] Katherine Negrete APRN.POWER WASHER [address] [facility] [place] [address] 8 week follow up labHematology/OncologyComment on above:8 week follow up labStart: 12-22-2024 End: 85-86-0045Rqbwgpz encounter milfovyyr35/25/2025 1:15 PM EDT Office Visit [facility] [address] [place] [address] 8 week follow up labNortForest View Hospital LaboratoryComment on above:8 week follow up labStart: 12-17-2024 End: 60-77-5656Pvhniblouzta consultation with wusckjp0112/17/2024 1:30 PM EDT Telemedicine Maternal- Medicine at [facility] [address] [place] [address] Alisa Saba, NURSING SERVICE DIRECTOR-POWER WASHER [address] [place] [address] [facility]: 12-11-2024 End: 29-52-8273Pzuouiv encounter vftynguzt79/14/2025 9:10 AM EDT Routine [facility] Piyush COLVIN [address] [facility] [address] [place], [id number] Wilton Herrmann DO [address] [facility] [place] [address] N[facility] Piyush OBGYNStart: 12-03-2024 End: 17-69-6996Axjcrggcjvuo consultation with rynyfnn5112/03/2024 2:00 PM EDT Telemedicine Maternal- Medicine at [facility] [address] [place] [address] Alisa Saba, NURSING SERVICE DIRECTOR-POWER WASHER [address] [place] [address] [facility]: 11-20-2024 End: 12-41-8301Pqqun fetoprotein, maternalAlpha fetoprotein, maternal Lab Routine Second trimester ([facility]) Expected: 11/20/2024 (Approximate), Expires: 01/21/2025[facility] HealthcareComment on above:Expected: 11/20/2024 (Approximate), Expires: 01/21/2025Start: 11-20-2024 End: 32-28-4384Gywzkar encounter rqttyanqk99/24/2025 10:10 AM EDT Routine [facility] BCP OB [address] [address] Wilton Herrmann DO [address] [place] [address] NOMS BCP OBStart: 11-19-2024 End: 22-52-9889bjtdurzdlf53/23/2025 9:30 AM EDT Support Visit Maternal- Medicine at [facility] [address] [place] [address] Lorena Enciso RN [address] [facility], [address] [place] [address] Stephanie Quiros, Cindy Uribe, RD [address] [facility], [address] [place] [address] [facility]: 11-12-2024 End: 93-90-7282EP MFM with or without consultUS MFM with or without consult Imaging Routine Gestational diabetes mellitus (GDM), antepartum, gestational diabetes method of control unspecified Expected: 11/12/2024 (Approximate), Expires: 10/13/2025[facility] Work Phone: comment on above:Expected: 11/12/2024 (Approximate), Expires: 10/13/2025Start: 10-30-2024 End: 21-93-5934Nsswwfw encounter ensnzgyun30/03/2025 10:40 AM EDT Routine [facility] BCP OB [address] [place] [phone] Wilton Herrmann, DO [address] [place] [address] NOMS BCP OBStart: 10-30-2024 End: 75-84-8847Imsgoro encounter /03/2025 9:30 AM EDT Routine [facility] B[facility] OB [address] [place] [address] Wilton Herrmann, DO [address] [place] [address] ArrivedNOFL BCP OBComment on above: ArrivedStart: 10-28-2024 End: 45-11-5552Qpjzkr-up fodojiuus58/01/2025 2:30 PM EDT Visit (SP) Office Hematology/Oncology [address] [facility] [facility] [address] [place], [place] [phone] Katherine Negrete APRN.POWER WASHER [address] [place] [address] 3 month follow upHematology/OncologyComment on above:3 month follow upStart: 10-28-2024 End: 50-80-6173Mhjrctw encounter /01/2025 2:15 PM EDT Office Visit [facility] [address] [place] [address] labs - patient prefers to come same dayNortForest View Hospital LaboratoryComment on above:labs - patient prefers to come same day Start: 10-27-2024 End: 94-71-9850Zlwtlre encounter yzyewqapp78/30/2025 9:20 AM EDT Office Visit [facility] OB [address] [place] [address] Wilton Herrmann, DO [address] [place] [address] NOMS BCP OBStart: 10-20-2024 End: 94-31-8271Furxbhemhdfb / ancillary services tajzcpqcbp19/23/2025 1:00 PM EDT Ancillary Procedure [facility] OB [address] [place] [address] NOMS BCP OBStart: 10-10-2024 End: 88-35-4771Iluczk-up mxfxulxmx01/13/2025 10:40 AM EDT Visit (SP) Office Hematology/Oncology [address] [facility] [place] [address] Kristofer Calix MD [address] [facility] [place] [address] 3 month follow upHematology/OncologyComment on above:3 month follow upStart: 10-10-2024 End: 51-22-8247Ifeufko encounter ihcnrmzqd78/13/2025 10:15 AM EDT Office Visit [facility] [address] [facility] [place] [address] labs - patient prefers to come same dayNortForest View Hospital LaboratoryComment on above:labs - patient prefers to come same day Start: 10-02-2024 End: 54-91-2114OMO/RhABO/Rh Lab Routine Missed menses , unspecified gestational age Expected: 10/02/2024 (Approximate), Expires: 10/02/2025[facility] HealthcareComment on above:Expected: 10/02/2024 (Approximate), Expires: 10/02/2025Start: 10-02-2024 End: 23-06-5750Rsvom type and Indirect antibody screen panel - BloodType and screen Lab Routine Missed menses , unspecified gestational age Expected: 10/02/2024 (Approximate), Expires: 10/02/2025[facility] Work Phone: comment on above:Expected: 10/02/2024 (Approximate), Expires: 10/02/2025Start: 10-02-2024 End: 96-32-6595Ydkcx of abuse panel - Urine by Screen methodRapid drug screen, urine Lab Routine , unspecified gestational age Encounter for supervision of normal first in first trimester Expected: 10/02/2024 (Approximate), Expires: 10/02/2025[facility] HealthcareComment on above:Expected: 10/02/2024 (Approximate), Expires: 10/02/2025Start: 10-02-2024 End: 96-89-0229kurbqmojng43/05/2025 1:00 PM EDT Initial [facility] [address] [address] HBOE BCP OBStart: 10-02-2024 End: [id number] / ancillary services qhuakwqjed52/05/2025 12:30 PM EDT Ancillary Procedure [facility] [address] [place] [address] [place], [place] [phone] IP[facility] BCP OBStart: 08-27-2024 End: 90-82-5573Bbvzpt-up genbbxijr22/30/2025 2:00 PM EDT Visit (SP) Office Hematology/Oncology [address] [place], [place] [phone] Kristofer Calix MD [address] [place] [address] [place] [address] 3 month follow upHematology/OncologyComment on above:3 month follow upStart: 08-27-2024 End: 14-66-3292Xzkwjfi encounter ibinornhx70/30/2025 1:45 PM EDT Office Visit [facility] [address] [place] [address] labs - patient prefers to come [facility] LaboratoryComment on above:labs - patient prefers to come same day Start: 08-26-2024 End: 343828-ecbkybifiiivbm D3 [Mass/volume] in Serum or PlasmaVITAMIN D 25 HYDROXY Lab Routine 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 Vitamin D deficiency Expected: 08/26/2024, Expires: 11/25/2024[facility] ClinicComment on above: Expected: 08/26/2024, Expires: 11/25/2024Start: 08-26-2024 End: 98-63-2294PDJ W Auto Differential panel - BloodCOMPLETE BLOOD COUNT AND DIFFERENTIAL Lab Routine 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 Vitamin D deficiency Expected: 08/26/2024, Expires: 11/25/2024[facility] Work Phone: Comment on above:Expected: 08/26/2024, Expires: 11/25/2024Start: 08-26-2024 End: 51-02-7104Ennccfomm (Vitamin B12) [Mass/volume] in Serum or PlasmaVITAMIN B12 Lab Routine 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 Vitamin D deficiency Expected: 08/26/2024, Expires: 11/25/2024[facility] ClinicComment on above: Expected: 08/26/2024, Expires: 11/25/2024Start: 08-26-2024 End: 19-47-5056Jlmunllbimlht metabolic 2000 panel - Serum or PlasmaCOMPREHENSIVE METABOLIC PANEL Lab Routine Antiphospholipid antibody positive Iron deficiency anemiasecondary to blood loss (chronic) Malaise and fatigue Vitamin D deficiency Expected: 08/26/2024, Expires: 11/25/2024[facility] ClinicComment on above: Expected: 08/26/2024, Expires: 11/25/2024Start: 08-26-2024 End: 31-11-3469Nrptpfgc [Mass/volume] in Serum or PlasmaFERRITIN Lab Routine 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) Malaise and fatigue Vitamin D deficiency Expected: 08/26/2024, Expires: 11/25/2024[facility] ClinicComment on above:Expected: 08/26/2024, Expires: 11/25/2024Start: 08-26-2024 End: 26-78-0090Aqtp and Iron binding capacity panel - Serum or PlasmaIRON AND TIBC Lab Routine 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 Vitamin D deficiency Expected: 08/26/2024, Expires: 11/25/2024[facility] ClinicComment on above: Expected: 08/26/2024, Expires: 11/25/2024Start: 08-26-2024 End: 96-01-1127Smbtdxxohhd [Units/volume] in Serum or PlasmaTHYROID STIMULATING HORMONE Lab Routine Antiphospholipid antibody positive 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) Malaise and fatigue Vitamin D deficiency Expected: 08/26/2024, Expires: 11/25/2024[facility] ClinicComment on above: Expected: 08/26/2024, Expires: 11/25/2024Start: 07-24-2024 End: 95-14-4496MiasffkmanfgBuzuarteumbn Lab Routine Irregular menstrual cycle Expected: 07/24/2024 (Approximate), Expires: 07/24/2025[facility] Work Phone: comment on above:Expected: 07/24/2024 (Approximate), Expires: 07/24/2025Start: 46-25-0132YPkD,Tdap and Td Vaccines (2 - Td or Tdap) DTaP,Tdap and Td Vaccines (2 - Td or Tdap)[facility]Start: 27-96-8493ZZtS/Tdap/Td vaccine (2 - Td or Tdap)DTaP/Tdap/Td vaccine (2 - Td or Tdap)[facility]ITALStart: 40-73-2777Kufem microalbumin profile [facility]: 06-23-2024 End: 76-16-1142TW PelvisUS Pelvis w/ TV Imaging Routine Vaginal bleeding Vaginal discharge Pelvic pain in female Expected: 06/23/2024, Expires: 06/23/2025[facility] HealthcareComment on above:Expected: 06/23/2024, Expires: 06/23/2025Start: 06-02-2024 End: 04-61-9297Cljxkdh encounter owtgdkqeq06/03/2025 11:20 AM EST Office Visit [facility] [address] [phone] Wilton Herrmann, DO [address] [place] [address] [facility] OBStart: 05-21-2024 End: 96-15-4038Vnkwgj-up ymhmyjkwd73/22/2025 2:20 PM EST Visit (SP) Office Hematology/Oncology [address] [place], [place] [phone] Kristofer Calix MD [address] [place] [address] 3 month follow up with labHematology/OncologyComment on above:3 month follow up with labStart: 05-21-2024 End: 40-56-6229Ywbwnzr encounter wlvyqsvbv47/22/2025 2:00 PM EST Office Visit [facility] [address] [place] [address] 3 month follow up with labNortForest View Hospital LaboratoryComment on above:3 month follow up with labStart: 05-06-2024 End: 90-38-2728EB for pregnancyNOMS Healthcare Work Phone: comment on above:Expected: 05/06/2024, Expires: 05/06/2025Start: 05-06-2024 End: 07-52-2702Tolavcp encounter cpytriezw29/07/2025 1:50 PM EST Routine [facility] [address] [phone] Wilton Herrmann, DO [address] [place] [address] [facility] OBStart: 04-09-2024 End: 65-87-2258Yqyenz-up encounterHematology/OncologyComment on above:3 month follow up with labStart: 04-09-2024 End: 71-64-6883Mwvzgcw encounter [facility] LaboratoryComment on above:3 month follow up with labStart: 04-04-2024 End: 77-64-3766YWC/RhABO/Rh Lab Routine Missed menses , unspecified gestational age Expected: 04/04/2024 (Approximate), Expires: 04/04/2025[facility] HealthcareComment on above:Expected: 04/04/2024 (Approximate), Expires: 04/04/2025Start: 04-04-2024 End: 07-93-8090Xabge type and Indirect antibody screen panel - BloodType and screen Lab Routine Missed menses , unspecified gestational age Expected: 04/04/2024 (Approximate), Expires: 04/04/2025[facility] Healthcare Work Phone: comment on above:Expected: 04/04/2024 (Approximate), Expires: 04/04/2025Start: 04-04-2024 End: 05-22-5700Pqkbo of abuse panel - Urine by Screen methodRapid drug screen, urine Lab Routine , unspecified gestational age Encounter for supervision of normal first in first trimester Expected: 04/04/2024 (Approximate), Expires: 04/04/2025[facility] HealthcareComment on above:Expected: 04/04/2024 (Approximate), Expires: 04/04/2025Start: 04-04-2024 End: 18-75-4999OT Pelvis transvaginalUS OB transvaginal Imaging Routine Missed menses Expected: 04/04/2024 (Approximate), Expires: 04/04/2025[facility] Healthcare Comment on above:Expected: 04/04/2024 (Approximate), Expires: 04/04/2025Start: 04-02-2024 End: 767258-txovhmqdztkgrc D3 [Mass/volume] in Serum or PlasmaVITAMIN D 25 HYDROXY Lab Routine Iron deficiency anemia secondary to blood loss (chronic) Vitamin Ddeficiency Malaise and fatigue Expected: 04/02/2024 (Approximate), Expires: 07/02/2024[facility] ClinicComment on above:Expected: 04/02/2024 (Approximate), Expires: 07/02/2024Start: 04-02-2024 End: 46-37-1614KLQ W Auto Differential panel - BloodCOMPLETE BLOOD COUNT AND DIFFERENTIAL Lab Routine Iron deficiency anemia secondary to blood loss (ch ronic) Vitamin D deficiency Malaise and fatigue Expected: 04/02/2024 (Approximate), Expires: 01/01/2025[facility] ClinicComment on above:Expected: 04/02/2024 (Approximate), Expires: 01/01/2025Start: 04-02-2024 End: 52-31-1146Kleriifki (Vitamin B12) [Mass/volume] in Serum or PlasmaVITAMIN B12 Lab Routine Iron deficiency anemia secondary to blood loss (chronic) Vitamin D deficiency Malaise and fatigue Expected: 04/02/2024 (Approximate), Expires: 01/01/2025[facility] ClinicComment on above:Expected: 04/02/2024 (Approximate), Expires: 01/01/2025Start: 04-02-2024 End: 46-18-9093Dghmnsvdvdoeq metabolic 2000 panel - Serum or PlasmaCOMPREHENSIVE METABOLIC PANEL Lab Routine Iron deficiency anemia secondary to blood loss (chronic) Vitamin D deficiency Malaise and fatigue Expected: 04/02/2024 (Approximate), Expires: 01/01/2025[facility] ClinicComment on above:Expected: 04/02/2024 (Approximate), Expires: 01/01/2025Start: 04-02-2024 End: 16-44-8568Knepcrtc [Mass/volume] in Serum or PlasmaFERRITIN Lab Routine Iron deficiency anemia secondary to blood loss (chronic) Vitamin D deficiency M alaise and fatigue Expected: 04/02/2024 (Approximate), Expires: 01/01/2025 [facility]:Expected: 04/02/2024 (Approximate), Expires: 01/01/2025Start: 04-02-2024 End: 53-14-9868Ubwsjy [Mass/volume] in Serum or PlasmaFOLATE, SERUM Lab Routine Iron deficiency anemia secondary to blood loss (chronic) Vitamin D deficiency Malaise and fatigue Expected: 04/02/2024 (Approximate), Expires: 01/01/2025 [facility] HospitalComment on above:Expected: 04/02/2024 (Approximate), Expires: 01/01/2025Start: 04-02-2024 End: 04-78-7208Xbkp and Iron binding capacity panel - Serum or PlasmaIRON AND TIBC Lab Routine Iron deficiency anemia secondary to blood loss (chronic) Vitamin D deficiency Malaise and fatigue Expected: 04/02/2024 (Approximate), Expires: 01/01/2025[facility] ClinicComment on above:Expected: 04/02/2024 (Approximate), Expires: 01/01/2025Start: 04-02-2024 End: 11-10-2797Aljsfkwsapk [Units/volume] in Serum or PlasmaTHYROID STIMULATING HORMONE Lab Routine Iron deficiency anemia secondary to blood loss (chronic) Vit vogel D deficiency Malaise and fatigue Expected: 04/02/2024 (Approximate), Expires: 07/02/20[facility] Work Phone: Comment on above:Expected: 04/02/2024 (Approximate), Expires: 07/02/2024Start: 01-05-2024 End: 97-48-2969XGX W Auto Differential panel - BloodCOMPLETE BLOOD COUNT AND DIFFERENTIAL Lab Routine Iron deficiency anemia secondary to blood loss (ch ronic) Vitamin D deficiency Malaise and fatigue Expected: 01/05/2024 (Approximate), Expires: 01/01/2025[facility] ClinicComment on above:Expected: 01/05/2024 (Approximate), Expires: 01/01/2025Start: 01-05-2024 End: 85-33-5604Zjtqdhtypwgyd metabolic 2000 panel - Serum or PlasmaCOMPREHENSIVE METABOLIC PANEL Lab Routine Iron deficiency anemia secondary to blood loss (chronic) Vitamin D deficiency Malaise and fatigue Expected: 01/05/2024 (Approximate), Expires: 01/01/2025[facility] ClinicComment on above:Expected: 01/05/2024 (Approximate), Expires: 01/01/2025Start: 01-02-2024 End: 96-34-8335Nzftjq-up bgrerpxaw09/04/2024 1:45 PM EDT Visit (SP) Office Hematology/Oncology [address] [place], [place] [phone] Kristofer Calix MD [address] [place] [place] [address] 8 WEEK FOLLOW UPHematology/OncologyComment on above:8 WEEK FOLLOW UPStart: 01-02-2024 End: 32-06-2333Hobttrc encounter chuawjrel57/04/2024 1:30 PM EDT Office Visit [facility] [address] [place], [place] [address] [address] 8 WEEK FOLLOW UPNortForest View Hospital LaboratoryComment on above:8 WEEK FOLLOW UPStart: 88-74-6635Mqaxx-19 Vaccine ( season)Covid-19 Vaccine ( season)[facility]: 68-28-6855Oqowd-19 Vaccine ( season)Covid-19 Vaccine ( season)[facility]: 15-61-5746Euobqjodt vaccinationK[facility] Hospital Start: 11-29-2023 End: 26-84-7215rbnosaafwp33/01/2024 1:30 PM EDT Infusion Center Hematology/Oncology [address] [place] [address] VENOFER 300Hematology/OncologyComment on above:VENOFER 300Start: 11-22-2023 End: 78-98-7035sqybdqgsqn76/25/2024 1:30 PM EDT Infusion Center Hematology/Oncology [address] [place] [address] [place] [address] VENOFER 300Hematology/OncologyComment on above:VENOFER 300Start: 11-15-2023 End: 53-59-8350wskjqdqaaz20/18/2024 1:30 PM EDT Infusion Center Hematology/Oncology [address] [place] [address] [place] [address] VENOFER 300Hematology/OncologyComment on above:VENOFER 300Start: 09-13-2023 End: 09-43-224916880207-eqdzfvpsulleoi D3 [Mass/volume] in Serum or PlasmaVITAMIN D 25 HYDROXY Lab Routine Vitamin D deficiency 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) Expected: 09/13/2023 (Approximate), Expires: 12/13/2023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 Work Phone: Comment on above:Expected: 06/15/2023 (Approximate), Expires: 09/14/2023Start: 06-15-2023 End: 36-99-3576Trazbmj.ionized [Moles/volume] in BloodCALCIUM IONIZED BLOOD Lab Routine Vitamin D deficiency Hypercalcemia Expected: 06/15/2023 (Approximate), Expires: 09/14/2023[facility] Work Phone: Comment on above:Expected: 06/15/2023 (Approximate), Expires: 09/14/2023Start: 06-15-2023 End: 02-80-5368FJF W Auto Differential panel - BloodCBC + DIFF Lab Routine Iron deficiency anemia secondary to blood loss (chronic) Expected: 06/15/2023 (Approximate), Expires: 06/12/2024[facility] Work Phone: Comment on above:Expected: 06/15/2023 (Approximate), Expires: 06/12/2024Start: 06-15-2023 End: 29-01-4453Inszfucxf (Vitamin B12) [Mass/volume] in Serum or PlasmaVITAMIN B12 BLOOD Lab Routine Iron deficiency anemia secondary to blood loss (chronic) Expected: 06/15/2023 (Approximate), Expires: 06/12/2024[facility] Work Phone: Comment on above:Expected: 06/15/2023 (Approximate), Expires: 06/12/2024Start: 06-15-2023 End: 38-89-6066Hlgecielbpmrg metabolic 2000 panel - Serum or PlasmaCOMP METABOLIC PANEL Lab Routine Iron deficiency anemia secondary to blood loss (chronic) Expected:06/15/2023 (Approximate), Expires: 06/12/2024[facility] Work Phone: Comment on above:Expected: 06/15/2023 (Approximate), Expires: 06/12/2024Start: 06-15-2023 End: 45-57-3149Ernuwtly [Mass/volume] in Serum or PlasmaFERRITIN BLD Lab Routine Iron deficiency anemia secondary to blood loss (chronic) Expected: 06/15/2023 (Approximate), Expires: 06/12/2024[facility] Work Phone: Comment on above:Expected: 06/15/2023 (Approximate), Expires: 06/12/2024Start: 06-15-2023 End: 12-02-4569Fuuxii [Mass/volume] in Serum or PlasmaFOLATE SERUM Lab Routine Iron deficiency anemia secondary to blood loss (chronic) Expected: 06/15/2023 (Approximate), Expires: 06/12/2024[facility] Work Phone: Comment on above:Expected: 06/15/2023 (Approximate), Expires: 06/12/2024Start: 06-15-2023 End: 63-60-2600Rxdu and Iron binding capacity panel - Serum or PlasmaIRON + TIBC Lab Routine Iron deficiency anemia secondary to blood loss (chronic) Expected: 06/15/2023 (Approximate), Expires: [address] [place] [address] Work Phone: Comment on above:Expected: 06/15/2023 (Approximate), Expires: 06/12/2024Start: 06-15-2023 End: 22-11-2190RCA, INTACT (WITHOUT CALCIUM)PTH, INTACT (WITHOUT CALCIUM) Lab Routine Vitamin D deficiency Hypercalcemia Expected: 06/15/2023 (Approximate), Expires: 09/14/2023[facility] Work Phone: Comment on above:Expected: 06/15/2023 (Approximate), Expires: 09/14/2023Start: 06-15-2023 End: 72-24-8073Aaswkfejwve [Units/volume] in Serum or PlasmaTSH BLD Lab Routine Malaise and fatigue Expected: 06/15/2023 (Approximate), Expires: 09/14/2023 [facility] Work Phone: Comment on above:Expected: 06/15/2023 (Approximate), Expires: 09/14/2023Start: 06-14-2023 End: 69-64-232972372120-teioptxgfdcsbd D3 [Mass/volume] in Serum or PlasmaVITAMIN D 25 HYDROXY Lab Routine Hypercalcemia Vitamin D deficiency Expected: 06/14/2023 (Approximate), Expires: 09/13/2023[facility] Work Phone: Comment on above:Expected: 06/14/2023 (Approximate), Expires: 09/13/2023Start: 06-14-2023 End: 74-02-0222Qbfqves.ionized [Moles/volume] in BloodCALCIUM IONIZED BLOOD Lab Routine Hypercalcemia Vitamin D deficiency Expected: 06/14/2023 (Approximate), Expires: 09/13/2023[facility] Work Phone: Comment on above:Expected: 06/14/2023 (Approximate), Expires: 09/13/2023Start: 06-14-2023 End: 37-33-9841FTV, INTACT (WITHOUT CALCIUM)PTH, INTACT (WITHOUT CALCIUM) Lab Routine Hypercalcemia Vitamin D deficiency Expected: 06/14/2023 (Approximate), Expires: 09/13/2023[facility] Work Phone: Comment on above:Expected: 06/14/2023 (Approximate), Expires: 09/13/2023Start: 06-14-2023 End: 32-03-8130Qpqyhdukbjj [Units/volume] in Serum or PlasmaTSH BLD Lab Routine Hypercalcemia Malaise and fatigue Expected: 06/14/2023 (Approximate), Expires: [address] [place] [address] Work Phone: Comment on above:Expected: 06/14/2023 (Approximate), Expires: 09/13/2023Start: 05-14-2023 End: 41-03-4559CLQ W Auto Differential panel - BloodCBC + DIFF Lab Routine Primary hypercoagulable state (HCC) Iron deficiency anemia secondary to blood loss (chronic) Vitamin D deficiency CVA, old, 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) Expected: 05/14/2023 (Approximate), Expires: 03/19/2024[facility] Work Phone: Comment on above:Expected: 05/14/2023 (Approximate), Expires: 03/19/2024Start: 05-14-2023 End: 51-77-8013Cfvnmvgbk (Vitamin B12) [Mass/volume] in Serum or PlasmaVITAMIN B12 BLOOD Lab Routine Primary hypercoagulable state (HCC) Iron deficiency anemia secondary to blood loss (chronic) Vitamin D deficiency CVA, old, 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) Expected: 05/14/2023 (Approximate), Expires: 03/19/2024[facility] Work Phone: Comment on above:Expected: 05/14/2023 (Approximate), Expires: 03/19/2024Start: 05-14-2023 End: 30-16-5310Ztllbhhnnmqrk metabolic 2000 panel - Serum or PlasmaCOMP METABOLIC PANEL Lab Routine Primary hypercoagulable state (HCC) Iron deficiency anemia secondary to blood loss (chronic) Vitamin D deficiency CVA, old, 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) Expected: 05/14/2023 (Approximate), Expires: 03/19/2024[facility] Work Phone: Comment on above:Expected: 05/14/2023 (Approximate), Expires: 03/19/2024Start: 05-14-2023 End: 39-11-6773Gayhrshq [Mass/volume] in Serum or PlasmaFERRITIN BLD Lab Routine Primary hypercoagulable state (HCC) Iron deficiency anemia secondary to blood loss (chronic) Vitamin D deficiency CVA, old, 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) Expected: 05/14/2023 (Approximate), Expires: 03/19/2024[facility] Work Phone: Comment on above:Expected: 05/14/2023 (Approximate), Expires: 03/19/2024Start: 05-14-2023 End: 59-86-7854Isvezv [Mass/volume] in Serum or PlasmaFOLATE SERUM Lab Routine Primary hypercoagulable state (HCC) Iron deficiency anemia secondary to blood loss (chronic) Vitamin D deficiency CVA, old, 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) Expected: 05/14/2023 (Approximate), Expires: 03/19/2024[facility] Work Phone: Comment on above:Expected: 05/14/2023 (Approximate), Expires: 03/19/2024Start: 05-14-2023 End: 73-78-6346Ghhv and Iron binding capacity panel - Serum or PlasmaIRON + TIBC Lab Routine Primary hypercoagulable state (HCC) Iron deficiency anemia secondary to blood loss (chronic) Vitamin D deficiency CVA, old, 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) Expected: 05/14/2023 (Approximate), Expires: 03/19/2024[facility] Work Phone: Comment on above:Expected: 05/14/2023 (Approximate), Expires: 03/19/2024Start: 37-84-9028Okdkokqomc Health ScreeningBehavioral Health ScreeningProMedica Fostoria Community Hospitaltart: 30-42-1290Zvuwkuzyku AssessmentDepression AssessmentProMedica Fostoria Community Hospitaltart: 02-16-2023 End: 25-24-890563756941-zaxvbtgkhnskgl D3 [Mass/volume] in Serum or PlasmaVITAMIN D 25 HYDROXY Lab Routine Primary hypercoagulable state (HCC) Iron deficiency anemia secondary to blood loss (chronic) Vitamin D deficiency Expected: 02/16/2023 (Approximate), Expires: 04/18/2023[facility] Work Phone: Comment on above:Expected: 02/16/2023 (Approximate), Expires: 04/18/2023Start: 02-16-2023 End: 44-41-3208MQV W Auto Differential panel - BloodCBC + DIFF Lab Routine Primary hypercoagulable state (HCC) Iron deficiency anemia secondary to blood loss (chronic) Expected: 02/16/2023 (Approximate), Expires: 12/23/2023[facility] Work Phone: Comment on above:Expected: 02/16/2023 (Approximate), Expires: 12/23/2023Start: 02-16-2023 End: 74-24-1393Fgniaggxm (Vitamin B12) [Mass/volume] in Serum or PlasmaVITAMIN B12 BLOOD Lab Routine Primary hypercoagulable state (HCC) Iron deficiency anemia secondary to blood loss (chronic) Expected: 02/16/2023 (Approximate), Expires: 12/23/2023[facility] Work Phone: Comment on above:Expected: 02/16/2023 (Approximate), Expires: 12/23/2023Start: 02-16-2023 End: 60-78-6499Utfuxjmnivkxt metabolic 2000 panel - Serum or PlasmaCOMP METABOLIC PANEL Lab Routine Primary hypercoagulable state (HCC) Iron deficiency anemia secondary to blood loss (chronic) Expected: 02/16/2023 (Approximate), Expires: 12/23/2023[facility] Work Phone: Comment on above:Expected: 02/16/2023 (Approximate), Expires: 12/23/2023Start: 02-16-2023 End: 71-77-1592Yneejjue [Mass/volume] in Serum or PlasmaFERRITIN BLD Lab Routine Primary hypercoagulable state (HCC) Iron deficiency anemia secondary to blood loss (chronic) Expected: 02/16/2023 (Approximate), Expires: 12/23/2023[facility] Work Phone: Comment on above:Expected: 02/16/2023 (Approximate), Expires: 12/23/2023Start: 02-16-2023 End: 85-83-2586Hwbqha [Mass/volume] in Serum or PlasmaFOLATE SERUM Lab Routine Primary hypercoagulable state (HCC) Iron deficiency anemia secondary to blood loss (chronic) Expected: 02/16/2023 (Approximate), Expires: 12/23/2023[facility] Work Phone: Comment on above:Expected: 02/16/2023 (Approximate), Expires: 12/23/2023Start: 02-16-2023 End: 80-44-3775Zqzn and Iron binding capacity panel - Serum or PlasmaIRON + TIBC Lab Routine Primary hypercoagulable state (HCC) Iron deficiency anemia secondary to blood loss (chronic) Expected: 02/16/2023 (Approximate), Expires: 12/23/2023[facility] Work Phone: Comment on above:Expected: 02/16/2023 (Approximate), Expires: 12/23/2023Start: 40-88-5523Yjjyb-19 Vaccine ()Covid- 19 Vaccine ()[facility]: 75-94-9386Ytunjvajq vaccinationProMedica Fostoria Community Hospitaltart: 95-39-6580TSA TESTINGPAP TESTINGProMedica Fostoria Community Hospitalt[facility]: 31-01-6694Uhnheuwmb for malignant neoplasm of cervixPap Testing [facility]: 11-28-2022 End: 69-01-9378KXN W Auto Differential panel - BloodCBC + DIFF Lab Routine Primary hypercoagulable state (HCC) CVA, old, speech/language deficit Cerebral hyponatremia Expected: 11/28/2022 (Approximate), Expires: 10/04/2023[facility] Work Phone: Comment on above:Expected: 11/28/2022 (Approximate), Expires: 10/04/2023Start: 11-28-2022 End: 13-72-0846Eewgtzbsh (Vitamin B12) [Mass/volume] in Serum or PlasmaVITAMIN B12 BLOOD Lab Routine Primary hypercoagulable state (HCC) CVA, old, speech/language deficitCerebral hyponatremia Expected: 11/28/2022 (Approximate), Expires: 10/04/2023[facility] Work Phone: Comment on above:Expected: 11/28/2022 (Approximate), Expires: 10/04/2023Start: 11-28-2022 End: 84-70-2202Vbykimongnpyz metabolic 2000 panel - Serum or PlasmaCOMP METABOLIC PANEL Lab Routine Primary hypercoagulable state (HCC) CVA, old, speech/language deficit Cerebral hyponatremia Expected: 11/28/2022 (Approximate), Expires: 10/04/2023[facility] Work Phone: Comment on above:Expected: 11/28/2022 (Approximate), Expires: 10/04/2023Start: 11-28-2022 End: 65-47-8464Kryaxscg [Mass/volume] in Serum or PlasmaFERRITIN BLD Lab Routine Primary hypercoagulable state (HCC) CVA, old, speech/language deficit Cerebral hyponatremia Expected: 11/28/2022 (Approximate), Expires: 10/04/2023[facility] Work Phone: Comment on above:Expected: 11/28/2022 (Approximate), Expires: 10/04/2023Start: 11-28-2022 End: 42-35-2048Kloawl [Mass/volume] in Serum or PlasmaFOLATE SERUM Lab Routine Primary hypercoagulable state (HCC) CVA, old, speech/language deficit Cerebral hyponatremia Expected: 11/28/2022 (Approximate), Expires: 10/04/2023[facility] Work Phone: Comment on above:Expected: 11/28/2022 (Approximate), Expires: 10/04/2023Start: 11-28-2022 End: 88-74-7493Njuz and Iron binding capacity panel - Serum or PlasmaIRON + TIBC Lab Routine Primary hypercoagulable state (HCC) CVA, old, speech/language deficit Cerebral hyponatremia Expected: 11/28/2022 (Approximate), Expires: 10/04/2023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 Work Phone: Comment on above:Expected: 09/21/2022 (Approximate), Expires: 07/28/2023Start: 74-90-4862AVTLFCBCQK ASSESSMENTDEPRESSION ASSESSMENT [facility]: 01-30-2022 End: 00-79-3999Qfspwgga [Mass/volume] in Serum or PlasmaFERRITIN BLD Lab Routine Anemia, unspecified type Expected: 01/30/2022, Expires: 01/30/2023[facility] Work Phone: Comment on above:Expected: 01/30/2022, Expires: 01/30/2023Start: 01-30-2022 End: 96-13-5598Hhlr and Iron binding capacity panel - Serum or PlasmaIRON + TIBC Lab Routine Anemia, unspecified type Expected: 01/30/2022, Expires: 01/30/2023 [facility] Work Phone: Comment on above:Expected: 01/30/2022, Expires: 01/30/2023Start: 36-46-2849Bnzklponx vaccinationProMedica F[facility]oria Community Hospitaltart: 12-29-2021 End: 44-22-2464Vefcbbt encounter fkbkdkaqs35/01/2022 [facility] Maternal MedStart: 17-28-2103WZUXIVKTQR ASSESSMENTDEPRESSION ASSESSMENTProMedica [facility] Hospital[facility]: 79-27-2931Itwrp depression screening assessmentDEPRESSION SCREENINGPro[facility] Hospital[facility]art: 12-04-2020 Screening for malignant neoplasm of cervixCervical Cancer ScreeningProMedica F[facility] Hospitaltart: 42-32-3827Pakmvuba screenDiabetes Critical access hospital Start: 19-67-1030RCH TESTINGHPV TESTINGProMedica Fostoria [facility] Hospitaltart: 10-22-2015 Screening for malignant neoplasm of cervixCAR[facility]ION [facility]Start: 03-80-8918QMB Vaccine (1 - 3-dose SCDM series)HPV Vaccine (1 - 3-dose SCDM series)[facility]: 02-56-0152PXX Vaccines (1 - 3-dose SCDM series)HPV Vaccines (1 - 3-dose SCDM series)[facility] HealthcareStart: 22-63-8148Knmqzuxbv for malignant neoplasm of cervixPap smearCARILION TAZEWELL COMM[facility]ITY [facility]OS[facility]ITALStart: 2004 DTaP,Tdap and Td Vaccines (1 - Tdap)DTaP,Tdap and Td Vaccines (1 - Tdap) [facility]: 90-75-6398Udoxoiynz B Vaccine (1 of 3 - 19+ 3-dose series)Hepatitis B Vaccine (1 of 3 - 19+ 3-dose series)[facility]: 98-80-6538Zfstsxwkh B Vaccines (1 of 3 - 19+ 3-dose series)Hepatitis B Vaccines (1 of 3 - 19+ 3-dose series)[facility] HealthcareStart: 99-50-4022Vdbjh BMI Follow Up PlanAdult BMI Follow Up PlanQuorum Healthtart: 37-19-7257Zhlag BMI ScreeningAdult BMI ScreeningQuorum Healthtart: 40-09-7703Hrjpmee ScreeningAnxiety ScreeningProMedica Fostoria [facility] Hospitaltart: 70-16-5099Kroyozhnsq Screening Depression ScreeningProMedica Fostoria Community Hospitaltart: 47-35-0183YNZJPFKTE C SCREENING HEPATITIS C SCREENINGProMedica [facility] Hospitaltart: 58-10-9525Ilnuylgqp C screeningCARILION TAZEWELL COMMUNITY [facility]OSPITALStart: 79-08-3366OSZ SCREENINGHIV SCREENINGK[facility] Start: 72-71-9166OWX screeningHIV ScreeningProMedica Fostoria [facility] Hospitaltart: 1998 History of varicella vaccinationVaricella Vaccines (1 of 2 - 13+ 2-dose series) [facility] HealthcareStart: 22-33-4475Ymqdllyeuv ScreenDepression [facility]Start: 27-81-8649Nffcaznxex ScreeningDepression ScreeningQuorum Healthtart: 98-31-7695Eutxvmy ScreeningTobacco ScreeningQuorum Healthtart: 29-95-2129NRhF/Tdap/Td Vaccines (1 - Tdap)DTaP/Tdap/Td Vaccines (1 - Tdap)[facility]: 72-99-4093GLYOM-19 VACCINE (#1)COVID-19 VACCINE (#1)[facility]: 18-35-0895BLEKI-19 VACCINE (1)COVID-19 VACCINE (1) [facility]: 32-71-9406NQF Vaccines (1 of 1 - Standard series)MMR Vaccines (1 of 1 - Standard series)[facility]: 11-96-1847Zbhwrwnwt vaccine (1 of 2 - 2-dose childhood series)Varicella vaccine (1 of 2 - 2-dose childhood series)[facility]: 52-57-0269XQCCM-19 Vaccine (#1) COVID-19 Vaccine (#1)[facility]: 88-91-6799UNKJQAXVZ B (1 of 3 - 3-dose series)HEPATITIS B (1 of 3 - 3-dose series)[facility]: 48-27-0960Ykgutmfof B Vaccine (1 of 3 - 3-dose series)Hepatitis B Vaccine (1 of 3 - 3-dose series)[facility] End: 88-32-3903Vvlwl Fetoprotein, MaternalBON [facility] Work Phone: comment on above:Once for 1 Occurrences starting 11/21/2021 until 11/21/2021 End: 98-13-4006Yackfzgzuab Ab, HEp-2 Substrate, S (NASEEM by IFA)Antinuclear Ab, HEp-2 Substrate, S (NASEEM by IFA) Lab Routine Antiphospholipid syndrome Antiphospholipid syndrome complicating , antepartum History of CVA (cerebrovascular accident) 1 Occurrences starting 02/16/2025 until 02/16/2026 [facility] Work Phone: comment on above:1 Occurrences starting 02/16/2025 until 02/16/2026acteria identified in Urine by CultureUrine culture Microbiology Routine Missed menses Ordered: 04/04/2024[facility] HealthcareComment on above:Ordered: 04/04/2024acteria identified in Urine by CultureUrine culture Microbiology Routine Missed menses Ordered: 10/02/2024[facility] HealthcareComment on above:Ordered: 10/02/2024 End: 04-53-8458FRX W Auto Differential panel - BloodCBC + DIFF Lab Routine Primary hypercoagulable state (HCC) CVA, old, 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) Every 2 months for 6 Occurrences starting 01/30/2022 until 01/30/2023[facility] Work Phone: Comment on above:Every 2 months for 6 Occurrences starting 01/30/2022 until 01/30/2023BC W Auto Differential panel - BloodCBC and differential Lab Routine Missed menses , unspecified gestational age Ordered: 04/04/2024[facility] HealthcareComment on above:Ordered: 4CBC W Auto Differential panel - BloodCBC and differential Lab Routine Missed menses , unspecified gestational age Ordered: 10/02/2024[facility] HealthcareComment on above:Ordered: 10/02/2024BC W Auto Differential panel - BloodCBC and differential Lab Routine 28 weeks gestation of ([facility]) Ordered: 02/09/2025[facility] Work Phone: comment on above:Ordered: 02/09/2025HLAMYDIA TRACHOMATIS (GENITO/STI)CHLAMYDIA TRACHOMATIS (GENITO/STI) Lab Routine Vaginal bleeding Vaginal discharge Ordered: 06/23/2024[facility] HealthcareComment on above: Ordered: 06/23/2024HLAMYDIA TRACHOMATIS (GENITO/STI)CHLAMYDIA TRACHOMATIS (GENITO/STI) Lab Routine Vaginal discharge Ordered: 11/20/2024[facility] Healthcare Comment on above:Ordered: 11/20/2024 End: 10-20-1735Abmskbplub profile (C3 AND C4)Complement profile (C3 AND C4) Lab Routine Antiphospholipid syndrome Antiphospholipid syndrome complicating , antepartum History of CVA (cerebrovascular accident) 1 Occurrences starting 02/16/2025 until [facility]16/2026[facility] Occurrences starting 02/16/2025 until 02/16/2026 End: 65-74-8668Skvdxkztnvbiu metabolic 2000 panel - Serum or PlasmaCOMP METABOLIC PANEL Lab Routine Primary hypercoagulable state (HCC) CVA, old, 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 Work Phone: Comment on above:Every 2 months for 6 Occurrences starting 01/30/2022 until 01/30/2023 End: 22-77-5244DTN double-stranded (dsDNA) Abs by Crithidia luciliae IFADNA double-stranded (dsDNA) Abs by Crithidia luciliae IFA Lab Routine Antiphospholipid syndrome Antiphospholipid syndrome complicating , antepartum History of CVA (cerebrovascular accident) 1 Occurrences starting 02/16/2025 until 02/16/2026[facility] System[facility]:1 Occurrences starting 02/16/2025 until 02/16/2026 End: 19-09-1079ZEB PanelENA Panel Lab Routine Antiphospholipid syndrome Antiphospholipid syndrome complicating , antepartum History of CVA (cerebrovascular accident) 1 Occurrences starting 02/16/2025 until 02/16/2026 [facility] SystemComment [facility] above:1 Occurrences starting 02/16/2025 until 02/16/2026Hemoglobin A1c/Hemoglobin.total in BloodHemoglobin A1c Lab Routine Missed menses , unspecified gestational age Ordered: 04/04/2024[facility] HealthcareComment on above:Ordered: 04/04/2024Hemoglobin A1c/Hemoglobin.total in BloodHemoglobin A1c Lab Routine Missed menses , unspecified gestational age Ordered: 10/02/2024[facility] HealthcareComment on above:Ordered: 10/02/2024Hepatitis B virus surface Ag [Presence] in Serum or Plasma by ImmunoassayHepatitis B surface antigen Lab Routine Missed menses , unspecified gestational age Ordered: 04/04/2024[facility] HealthcareComment on above: Ordered: 04/04/2024Hepatitis B virus surface Ag [Presence] in Serum or Plasma by ImmunoassayHepatitis B surface antigen Lab Routine Missed menses , unspecified gestational age Ordered: 10/02/2024[facility] HealthcareComment on above: Ordered: 10/02/2024Hepatitis C virus Ab [Presence] in Serum or Plasma by ImmunoassayHepatitis C antibody Lab Routine Missed menses , unspecified gestational age Ordered: 04/04/2024[facility] HealthcareComment on above:Ordered: 04/04/2024Hepatitis C virus Ab [Presence] in Serum or Plasma by Immunoassay Hepatitis C antibody Lab Routine Missed menses , unspecified gestational age Ordered: 10/02/2024[facility] HealthcareComment on above:Ordered: 10/02/2024HIV-1/HIV-2 antigen/antibody combination immunoassayHIV-1 and HIV-2 antibodies Lab Routine Missed menses , unspecified gestational age Ordered: 04/04/2024[facility] HealthcareComment on above:Ordered: 04/04/2024 HIV-1/HIV-2 antigen/antibody combination immunoassayHIV-1 and HIV-2 antibodies Lab Routine Missed menses , unspecified gestational age Ordered: 10/02/2024[facility] HealthcareComment on above:Ordered: 10/02/2024Neisseria gonorrhoeae DNA [Presence] in Unspecified specimen by LELO with probe detection Neisseria gonorrhea DNA probe, direct Lab Routine Vaginal bleeding Vaginal discharge Ordered: 06/23/2024[facility] HealthcareComment on above:Ordered: 06/23/2024 Neisseria gonorrhoeae DNA [Presence] in Unspecified specimen by LELO with probe detectionNeisseria gonorrhea DNA probe, direct Lab Routine Vaginal discharge Ordered: 11/20/2024[facility] HealthcareComment on above:Ordered: 11/20/2024Reagin Ab [Presence] in Serum by RPRRPR Lab Routine Missed menses , unspecified gestational age Ordered: 04/04/2024[facility] HealthcareComment on above:Ordered: 04/04/2024eagin Ab [Presence] in Serum by RPRRPR Lab Routine Missed menses , unspecified gestational age Ordered: 10/02/2024[facility] HealthcareComment on above:Ordered: 10/02/2024Rubella antibody, IgGRubella antibody, IgG Lab Routine Missed menses , unspecified gestational age Ordered: 04/04/2024 [facility] HealthcareComment on above:Ordered: 04/04/2024ubella antibody, IgGRubella antibody, IgG Lab Routine Missed menses , unspecified gestational age Ordered: 10/02/2024[facility] HealthcareComment on above:Ordered: 10/02/2024 SURESWAB(R) ADVANCED VAGINITIS PLUS, TMASURESWAB(R) ADVANCED VAGINITIS PLUS, TMA Pathology and Cytology Routine Vaginal bleeding Vaginal discharge Ordered: 06/23/2024[facility] Healthcare Work Phone: comment on above:Ordered: 06/23/2024SURESWAB(R) ADVANCED VAGINITIS PLUS, TMASURESWAB(R) ADVANCED VAGINITIS PLUS, TMA Pathology and Cytology Routine Vaginal discharge Ordered: 11/20/2024[facility] Work Phone: comment on above:Ordered: 11/20/2024Thyrotropin [Units/volume] in Serum or PlasmaTSH Lab Routine Hypothyroidism (acquired) ([facility]) Ordered: 04/04/2024[facility] HealthcareComment on above:Ordered: 04/04/2024 Thyrotropin [Units/volume] in Serum or PlasmaTSH Lab Routine History of thyroid disease Ordered: 06/02/2024[facility] Work Phone: comment on above:Ordered: 06/02/2024Thyrotropin [Units/volume] in Serum or PlasmaTSH Lab Routine Thyroid disease ([facility]) Ordered: 10/02/2024[facility] HealthcareComment on above:Ordered: 10/02/2024 Thyrotropin [Units/volume] in Serum or PlasmaTSH Lab Routine Second trimester ([facility]) Thyroid disease Ordered: 12/11/2024[facility] Work Phone: comment on above:Ordered: 12/11/2024UA DIP, URINE (POC)UA DIP, URINE (POC) Lab Routine Infective urethritis Ordered: 08/01/2021 [facility] Work Phone: Comment on above:Ordered: 08/01/2021Vitamin D 1,25 dihydroxyVitamin D 1,25 dihydroxy Lab Routine Low vitamin D level Ordered: 04/04/2024[facility] HealthcareComment on above:Ordered: 04/04/2024 End: 07-11-9255Tpeqokl D 25 hydroxyVitamin D 25 hydroxy Lab Routine Insulin controlled gestational diabetes mellitus (GDM) in second trimester 1 Occurrences starting 12/03/2024 until 12/03/2025[facility] Work Phone: comment on above:1 Occurrences starting 12/03/2024 until 12/03/2025[facility] Immunizations Immunization DateImmunizationNotesCare DourtwytFsdtznxk44-40-8646gwnykzypg virus vaccine, unspecified formulationKristofer Calix MD Work Phone: [facility] HospitalKplbqf86-08-5673zztfylt toxoid, reduced diphtheria toxoid, and acellular pertussis vaccine, adsorbedMa Sand Work Phone: [facility] HospitalNEGATED: Highlighted row has not occurred!22-41-5649ltfvnsdzx virus vaccine, unspecified formulationScott KAPLE 600-4094Ufvphq-XpeuuOhiohealth Marion [facility] Hospital Primary CareNEGATED: Highlighted row has not occurred!34-48-3611uoeklfcie virus vaccine, unspecified formulationJULISAIK VON [phone]-OfgcwOhiohealth [facility] Hospital [facility] [place] Payers DatePayer CategoryPayerPolicy [id number] 2021Medicaid [place] [employer] MED[employer]ID [id number] 2020-Present [phone] [address] [place] [address] [id number] 2021Medicaid [id number] 2.16.840.1.744556.3.57[id number] 2.16.840.1.120298.3.579.[id number] 2.16.840.1.900086.3.57[id number] 2.16840.1.616406.3.579.2.73684-44-8264Yukbabi1958944 2.16840.1.398170.3.579.2.90436-82-7288Txpvdii2941534 2.16840.1.824836.3.579.2.19006-26-4507Oeqjsqa5669546 2.16840.1.647192.3.579.2.00614-67-4950Gwotehm1046435 2.840.1.361593.3.579.2.68695-57-7185Nnvlaei9077817 2.16840.1.203322.3.579.2.01761-99-5141Qthnpsm6554514 2.16840.1.190368.3.579.2.33851-33-2834Fdunijr6784142 2.16840.1.619766.3.579.2.51853-87-4419Myhxvpc9467851 2.840.1.759446.3.579.2.52587-42-1803Obzpkrn6194011 2.16840.1.396742.3.579.2.82904-64-0692Nyiaqwj3769624 2.16840.1.147823.3.579.2.47610-62-6883Voyytaf2578382 2.16840.1.870591.3.579.2.34608-99-8758Zxsydos3740191 2.16840.1.986300.3.579.2.21802-35-5497Kawisra8208979 2.16.840.1.448411.3.579.2.27854-91-6835Puikmke5621877 2.16.840.1.526777.3.579.2.59676-41-1438Eprorez6712298 2.16.840.1.769718.3.579.2.70917-55-9831Naouukb4410632 2.16.840.1.244280.3.579.2.99321-10-1181Gnjpoef4377804 2.16840.1.483849.3.579.2.06223-85-8454Uuexqtv7719531 2.16840.1.729470.3.579.2.83349-08-8466Ojvfhpt1663119 2.16840.1.316297.3.579.2.62639-29-1351Ukrbppg3722790 2.16840.1.191587.3.579.2.38698-30-1628Cxachih7558007 2.16840.1.609784.3.579.2.65137-28-1962Iakkxrl4236099 2.16.840.1.771868.3.579.2.05680-38-4434Tuahihf2653053 2.16840.1.170168.3.579.2.53358-37-2036Jdqugxj0162604 2.16840.1.193751.3.579.2.93775-87-1768Siowmch5623547 2.16840.1.293452.3.579.2.14903-70-4226Uwatvpm70584032 2.16.840.1.539405.3.579.2.52961-94-7355Wzszxia23343968 2.16840.1.766082.3.579.2.73741-63-1068Drgffbc83482900 2.16840.1.268561.3.579.2.49350-02-4071Uimkyjp98032339 2.16840.1.021942.3.579.2.60972-84-5969Gbybbsj76322803 2.16840.1.775032.3.579.2.62116-96-3228Urnjmkq35125742 2.16840.1.258231.3.579.2.75421-66-9464Hkjenls00117500 2.840.1.045593.3.579.2.39140-56-5159Deqhgmw42768536 2.840.1.244280.3.579.2.10590-98-2291Tbbmwed62218205 2.840.1.539010.3.579.2.43175-06-7984Kkkcrnb51885792 2.840.1.616989.3.579.2.55557-12-0013Hxqtpqo98769426 2.840.1.013727.3.579.2.95421-87-4993Fonaxgd22702512 2.840.1.394995.3.579.2.09131-06-4960Fdjxuzn82969302 2.840.1.795217.3.579.2.72794-46-6749Jsnvqzo60792683 2.16840.1.169503.3.579.2.39475-11-0920Fogcucj50212039 2.16840.1.504608.3.579.2.46217-89-5379Fwtyjey88380108 2.16840.1.331359.3.579.2.01312-09-9985Hzthhhq72346405 2.16840.1.482203.3.579.2.49316-01-1901Cxumhbn59391235 2.16840.1.743874.3.579.2.07474-92-5887Nzoszrd40692965 2.16840.1.334831.3.579.2.07127-12-9650Jowjwho53686250 2.840.1.519205.3.579.2.82227-58-0548Epbuywh48744977 2.16840.1.417430.3.579.2.77883-74-3632Vtfulax90783998 2.0.1.138862.3.579.2.63165-95-3316Aoqjggh55013847 2.0.1.515358.3.579.2.91491-47-5968Opsolva21944224 2.0.1.329070.3.579.2.90414-42-7902Awkhrng67116063 2.0.1.372784.3.579.2.88208-39-5997Adjzjzu58648802 2.16840.1.617147.3.579.2.94428-48-9837Njcyyma43212181 2.0.1.810673.3.579.2.81455-04-8552Elhoenr04947670 2.840.1.751854.3.579.2.96615-38-3191Pyggcjx42529489 2.16840.1.794415.3.579.2.64044-61-0079Ijwvzoj59245309 2.16840.1.946563.3.579.2.73157-14-9219Mnzoijg45924719 2.840.1.397279.3.579.2.58453-46-4161Lsexdqt71413483 2.16.840.1.831149.3.579.2.64385-15-8659Fbsrotu92176857 2.16840.1.797183.3.579.2.42814-43-9217Kycddcr34104411 2.16840.1.682345.3.579.2.32854-59-5700Wyvhwdb42840630 2.16840.1.411230.3.579.2.22683-05-7961Auzmtgz82856753 2.16840.1.060519.3.579.2.83836-01-8293Rulflhk55407758 2.16840.1.776726.3.579.2.06806-66-1776Dapiyhn33082523 2.840.1.800397.3.579.2.38361-70-3415Jubmtxl63799950 2.16840.1.634545.3.579.2.64560-27-3485Mraqhyx53170906 2.840.1.875931.3.579.2.36246-49-2779Hwxgexr09794650 2.840.1.682542.3.579.2.68401-43-2009Gkugzjt89659198 2.840.1.030573.3.579.2.81710-09-4567Xcxdgqi84740019 2.16840.1.255877.3.579.2.08484-27-0423Zcitoue60224531 2.16840.1.316752.3.579.2.01045-80-6324Njtowuu400199455 2.16840.1.408380.3.579.2.514836-43-7213Leweybl562384998 2.16840.1.400151.3.579.2.603506-55-1247Lhlobmo606787221 2.16840.1.650359.3.579.2.515755-60-2223Nofcahx11184794 2.16.840.1.947943.3.579.2.72524-97-9873Lxaglux447476629 2.16840.1.127202.3.579.2.269421-80-0803Aynvcxe762872420 2.16840.1.499159.3.579.2.379748-53-9974Esvdedo458427072 2.16840.1.380277.3.579.2.909408-25-9398Sgaqnsk932068640 2.16840.1.545032.3.57[id number] 2.0.1.964330.3.57[id number] 2.160.1.187015.3.579.[id number] 2.16840.1.412863.3.57[id number] 2.840.1.972683.3.57[id number] 2.16840.1.252639.3.57[id number] 2.16840.1.375280.3.579.[id number] 2.16840.1.736448.3.57[id number] 2.16840.1.969192.3.57[id number] 2.16.840.1.403473.3.57[id number] 2.16.840.1.929152.3.57[id number] 2.16.840.1.640767.3.57[id number] 2.16.840.1.458788.3.579.2.2[id number] 2.16.840.1.976062.3.57[id number] 2.16.840.1.436588.3.579.[id number] 2.16.840.1.815570.3.57[id number] 2.16.840.1.507856.3.579.2.71[id number] 2.16.840.1.725228.3.579.2.105241-65-4256Gyalgmf0434556 2.16.840.1.728664.3.579.2.808474-81-3645Dsah-[id number] [id number] 1.2.840.979205.1.13.239.2.7.3.290473.315Unknown [id number] 2.16.840.1.110069.3.579.2.593 Social History DateTypeDetailFacilityStart: 09-10-2017 End: 26-99-8312Axqczvo smoking status NHISNever smoked tobaccoK[facility]tering [facility] Hospital Start: 09-10-2017 End: 38-86-9906Hdvohaw use and exposureSmokeless tobacco non-userProMedica Fostoria Community Hospitaltart: 08-01-2021 End: 14-96-2992Ioxxaqb intakeCurrent non-drinker of alcohol (finding)[facility] Hospitaltart: 08-27-3747Bfh Assigned At BirthNot on fileProMedica Fostoria Community Hospitaltart: 07-22-2021 End: 77-34-3339Yswihatg to SARS-CoV-2 (event)Not sureProMedica Fostoria Community Hospitaltart: 05-28-2017 End: 60-98-0472Etgzcjz smoking statusNeUC Health Start: 07-27-2022 End: 15-27-1857Jan Assigned At [facility] Start: 11-21-2021 End: 14-47-9529Msjjtwz intakeEx-drinker (finding)[facility] [employer] Work Phone: start: 32-16-1343Jaiwhcg SDOH Alcohol Comment occasionallyATHOL HOSPITALVeterans Business Services Organization Work Phone: start: 08-00-0366UmesmdvcGVC [facility] CENTERVeter[facility] Business Services Organization Work Phone: start: 07-27-2022 End: 89-31-7301Naalkly of Social functionProMedica Fostoria Community Hospitaltart: 04-04-2024 End: 85-17-1717Igqjunemq beverage intakeLifetime non-drinker (finding)[facility] HealthcareTobacco smoking status NHISUnknown if ever smokedOhiohealth Grove City [facility] Work Phone: Start: 11-27-2018 End: 85-34-6583WwiXomooa (finding)[facility] Centertart: 84-56-3174Zbo Assigned At [facility] Medical Equipment Procedure CodeEquipment CodeEquipment Original TextEquipment IdentifierDates [id number]: 10-30-2024 End: each by In Vitro route Daily Use to check FSBS four times daily [id number]: 10-30-2024 End: 67-60-5765Gsw a new needle with each injection ( 1- 5 times per day) [id number]: 12-03-2024 Functional Status EzbsMhbuutyfyaPacrtiNeynojik02-87-1565Jyzlflj Health Questionnaire 2 item (PHQ- 2) [Reported][facility] CenterLfkhmyelly68-33-9814Uwyyfhrlad StatusN/[facility]02-20-2025Functional StatusN/[facility]02-10-2025Functional StatusN/[facility] Primary Ozpq94-22-2369Jblsdjpwvp StatusN/[facility]10-05-2024Functional StatusN/[facility] 67-46-3403Hfnhgnagqq StatusN/[facility]06-25-2024 Functional StatusN/[facility]05-31-2024Functional StatusN/[facility]04-05-2024Functional Status N/[facility] Kwzg53-78-8400Yljcnnkbjg StatusN/[facility] Ikuc07-83-0767Dzavudjxco StatusN/[facility]06-23-2023Functional StatusN/[facility] Clinical Notes 07-26-2019 to 03-02-2025 Note Date & VveoOpnhSwrfnofz47-05-7554 NoteHNO ID: [id number] Author: KATHERINE NEGRETE APRN.POWER WASHER Service: ? Author Type: Nurse Practitioner Type: Progress Notes Filed: 03/02/2025 20:18 Note Text: NAME: Sanna Rendon CLINIC NO.: [id number] DATE OF SERVICE: March 02, 2025 (Penelope) [...] later in 2018. These were found in [place], [place]. 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 mg [...] She has a h (more content not included)...[facility]10-27-2025 History of Present illness Narrative* Rosi Murray [...] Diagnosis Date Noted 32 weeks gestation of ([facility]) 11/28/2019 Abdominal pain 06/12/2023 Acute bronchitis due to infection 06/12/2023 Acute on chronic vesicular eczema of hands and feet 11/15/2023 Anemia complicating childbirth ([facility]) 01/16/2020 Anticoagulant long-term use 02/22/2020 Antiphospholipid antibody positive 09/10/2017 Antiphospholipid antibody syndrome ([facility]) 07/07/2019 Anxiety 06/12/2023 Blood pressure elevated without history of HTN 11/15/2023 BMI 37.0-37.9, adult 11/15/2023 Cerebral infarction, unspecified ([facility]) 05/16/2019 Cerebrovascular accident (CVA) due to stenosis of middle cerebral artery (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 ([facility]) 01/08/2020 Coagulation defect, unspecified ([facility]) 02/05/2019 Cold intolerance 11/15/2023 Deficiency of other specified B group vitamins 05/16/2019 Deviated septum 11/15/2023 Dizziness and giddiness 02/05/2019 Dry mouth 11/15/2023 Dysfunction of eustachian tube 06/12/2023 Dyspnea 06/12/2023 Elevated blood pressure reading 11/15/2023 Encounter for supervision of normal , unspecified, first trimester ([facility]) 05/29/2019 Environmental allergies 11/15/2023 Fatigue 12/29/2016 First degree perineal laceration during delivery ([facility]) 01/16/2020 Frequency of micturition 02/19/2019 Genitourinary symptoms 08/19/2021 Gestational diabetes mellitus (GDM), antepartum ([facility]) 01/26/2022 H/O: hypothyroidism 11/15/2023 Hematochezia 06/12/2023 History [...] anemia 01/16/2020 Irregular uterine bleeding 11/15/2023 problem ([facility]) 06/12/2023 Less than 8 weeks gestation of ([facility]) 06/05/2019 skilled nursing (current) use of 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/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 02/05/2019 Migraine without aura and without status migrainosus, not intractable 09/12/2017 Morbid obesity ([facility]) 11/15/2023 Muscle fasciculation 08/19/2021 Nasal polyps 11/15/2023 Non-smoker 11/15/2023 NEETA (obstructive sleep apnea) 11/15/2023 Other acute postprocedural pain 02/03/2019 Other general symptoms and signs 10/28/2019 Other immediate hemorrhage ([facility]) 01/16/2020 Other specified noninflammatory disorders of vagina 02/21/2019 Pain in joint 12/29/2016 Palpitations 08/26/2019 Paresthesia of bilateral legs 11/15/2023 Pelvic and perineal pain 02/01/2019 Personal history of urinary (tract) infections 01/16/2020 Pre-diabetes 11/15/2023 Primary hypercoagulable state ([facility]) 08/01/2022 Pruritus, unspecified 01/02/2020 Psychogenic hyperventilation 06/12/2023 Raised antibody titer 09/25/2017 Right lower quadrant pain 11/15/2023 Right otitis externa 11/15/2023 Salivary gland swelling 11/15/2023 Single live ([facility]) 01/15/2020 Snoring 11/15/2023 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) 12/30/2019 Suspected severe acute respiratory syndrome coronavirus 2 (SARS-CoV-2) infection 06/12/2023 SVT (supraventricular tachycardia) ([facility]) 08/26/2019 Syncope and collapse 06/03/2018 Other bacterial infections of unspecified site 06/27/2019 Thrombocytopenia, unspecified 11/20/2019 Hypoglycemia 06/12/2023 Unspecified condition associated with female genital organs and menstrual cycle 05/09/2019 Unspecified ovarian cyst, right side 02/06/2019 Urinary tract infection 10/16/2019 Referred otalgia of right ear 11/19/2023 LPRD (laryngopharyngeal reflux disease) 11/19/2023 H/O loss 01/05/2025 Multigravida of advanced maternal age in second trimester ([facility]) 01/05/2025 Thyroid disease 01/05/2025 Resolved Ambulatory Problems Diagnosis Date Noted No Resolved Ambulatory Problems Past Medical History: Diagnosis Date AMA (advanced maternal age) multigravida 35+ ([facility]) Anemia Antiphospholipid syndrome ([facility]) Gestational diabetes ([facility]) Heartburn Hypothyroid Stroke ([facility]) HISTORY PAST MEDICAL HISTORY SOCIAL HISTORY Past Medical History: Diagnosis Date AMA (advanced maternal age) multigravida 35+ ([facility]) Anemia Antiphospholipid syndrome ([facility]) Gestational diabetes ([facility]) Heartburn Hypothyroid Stroke ([facility]) Social History Tobacco Use Smoking status: [...] drainage of cyst WISDOM TOOTH EXTRACTION 2007 [place] teeth REVIEW OF SYSTEMS Review of Systems: [...] nursing note reviewed. Exam conducted with a pulmonary function technologist present. Vitals: Estimated body mass index is 33.98 kg/m as calculated from the following: Height as of 11/19/23: 5' 6 . Weight as of this encounter: 210 lb 8 oz. BP: 116/72 Patient's last menstrual period was 07/28/2024. Assessment/Plan ICD-10-CM 1. Third trimester ([facility]) Z34.93 2. 30 weeks gestation of ([facility]) Z3A.30 POCT urinalysis dipstick manually resulted [...] of: Wilton Herrmann DO documented in this encounterMadison Medical CenterWhbfakkfch46-07-9361 History of Present illness Narrative* Sam Callahan MD MPH - 02/16/2025 1:45 PM EDT Images from the original note were not included. ADULT RHEUMATOLOGY CLINIC NOTE [id number] [id number] Patient Name: Sanna Rendon Subjective Reason for [...] following with two outside specialists (Neurology at [facility] and Hematology at [facility]) for management of her APS. The patient notes that she experienced symptoms of a CVA back in 2015 where she had facial droop, abnormal speech and lower extremity weakness. She notes that she was not told about the stroke diagnosis right away and eventually sought care with a Neurologist in 2018 who reviewed her prior rec ords and [...] health issues unclear exact diagnoses Note from [facility] Provider (Dr. Noyola): Recent note from [...] age) multigravida 35+ Antiphospholipid syndrome Hypothyroid Stroke ([facility]) Gestational diabetes mellitus (GDM) in second trimester [...] Anemia Antiphospholipid antibody syndrome Cerebral infarction, unspecified ([facility]) 05/16/2019 Hypothyroid Migraine without aura and without status migrainosus, not intractable 09/12/2017 Stroke ([facility]) 2016 reviewed. Social History Social History Narrative [...] weeks . She is currently following with [facility] for her , neurology through the [facility], and hematology through [facility]. Based on extensive review of her [...] Expiration Date: 02/16/2026 Release to patient via Percellot?: Immediate [1] Complement profile (C3 AND C4) Standing Status: Future Expiration Date: 02/16/2026 Release to patient via Knomohart?: Immediate [1] DNA double-stranded (dsDNA) Abs by Rnee angel IFA Standing Status: Future Expiration Date: 02/16/2026 Release to patient via Knomohart?: Immediate [1] KELLEN Panel Standing Status: Future Expiration Date: 02/16/2026 Release to patient via Knomohart?: Immediate [1] Treatment Plan: -if the patient [...] visit is OK Sam Callahan MD, MPH [facility] [address] [place] [address] Total fmzd-tj-brfn time was 55 minutes with more than [...] you for your understanding. documented in this encounterTriHealth10-14-2025 Miscellaneous Notes* Telephone Encounter - PRISCILLA Sutherland [...] in blood sugars weekly. documented in this [facility]10-14-2025 Telephone encounter Note* Telephone Encounter - PRISCILLA [...] Continue to send in blood sugars weekly. [employer] Work Phone: 1(803) 937-931010-13-2025 History of Present illness Narrative* Rosi Murray [...] Diagnosis Date Noted 32 weeks gestation of ([facility]) 11/28/2019 Abdominal pain 06/12/2023 Acute bronchitis due to infection 06/12/2023 Acute on chronic vesicular eczema of hands and feet 11/15/2023 Anemia complicating childbirth ([facility]) 01/16/2020 Anticoagulant long-term use 02/22/2020 Antiphospholipid antibody positive 09/10/2017 Antiphospholipid antibody syndrome ([facility]) 07/07/2019 Anxiety 06/12/2023 Blood pressure elevated without history of HTN 11/15/2023 BMI 37.0-37.9, adult 11/15/2023 Cerebral infarction, unspecified ([facility]) 05/16/2019 Cerebrovascular accident (CVA) due to stenosis of middle cerebral artery (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 ([facility]) 01/08/2020 Coagulation defect, unspecified ([facility]) 02/05/2019 Cold intolerance 11/15/2023 Deficiency of other specified B group vitamins 05/16/2019 Deviated septum 11/15/2023 Dizziness and giddiness 02/05/2019 Dry mouth 11/15/2023 Dysfunction of eustachian tube 06/12/2023 Dyspnea 06/12/2023 Elevated blood pressure reading 11/15/2023 Encounter for supervision of normal , unspecified, first trimester ([facility]) 05/29/2019 Environmental allergies 11/15/2023 Fatigue 12/29/2016 First degree perineal laceration during delivery ([facility]) 01/16/2020 Frequency of micturition 02/19/2019 Genitourinary symptoms 08/19/2021 Gestational diabetes mellitus (GDM), antepartum ([facility]) 01/26/2022 H/O: hypothyroidism 11/15/2023 Hematochezia 06/12/2023 History [...] anemia 01/16/2020 Irregular uterine bleeding 11/15/2023 problem ([facility]) 06/12/2023 Less than 8 weeks gestation of ([facility]) 06/05/2019 skilled nursing (current) use of 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/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 02/05/2019 Migraine without aura and without status migrainosus, not intractable 09/12/2017 Morbid obesity ([facility]) 11/15/2023 Muscle fasciculation 08/19/2021 Nasal polyps 11/15/2023 Non-smoker 11/15/2023 NEETA (obstructive sleep apnea) 11/15/2023 Other acute postprocedural pain 02/03/2019 Other general symptoms and signs 10/28/2019 Other immediate hemorrhage ([facility]) 01/16/2020 Other specified noninflammatory disorders of vagina 02/21/2019 Pain in joint 12/29/2016 Palpitations 08/26/2019 Paresthesia of bilateral legs 11/15/2023 Pelvic and perineal pain 02/01/2019 Personal history of urinary (tract) infections 01/16/2020 Pre-diabetes 11/15/2023 Primary hypercoagulable state ([facility]) 08/01/2022 Pruritus, unspecified 01/02/2020 Psychogenic hyperventilation 06/12/2023 Raised antibody titer 09/25/2017 Right lower quadrant pain 11/15/2023 Right otitis externa 11/15/2023 Salivary gland swelling 11/15/2023 Single live ([facility]) 01/15/2020 Snoring 11/15/2023 Speech and language deficit [...] drainage of cyst WISDOM TOOTH EXTRACTION 2007 [place] teeth REVIEW OF SYSTEMS Review of Systems: [...] nursing note reviewed. Exam conducted with a pulmonary function technologist present. Vitals: Estimated body mass index is 34.12 kg/m as calculated from the following: Height as of 11/19/23: 5' 6 . Weight as of this encounter: 211 lb 6.4 oz. BP: 124/76 Patient's last menstrual period was 07/28/2024. ASSESSMENT & PLAN ICD-10-CM 1. Third trimester ([facility]) Z34.93 2. 28 weeks gestation of ([facility]) Z3A.28 CBC and differential POCT urinalysis dipstick [...] givenorders and they were also faxed to [facility] and [facility] Scheduling. Patient to return to clinic in 2 weeks for routine OB appointment. Documented by Rosi Murray LPN on behalf of: Wilton Herrmann DO documented in this encounterMadison Medical [id number] History of Present illness Narrative* Mukul Noyola MD - 02/06/2025 2:00 PM EDT Images from the original note were not included. Video Visit via Real-time Synchronous Audiovisual Provider Location: [facility]ER[facility]- MEDICINE AT [address] [id number] Patient Location: Other Home Patient Location Retail Buyer: None Video Visit Consent Statement: I discussed [...] that there are some limitations compared to vonj-xk-jrba evaluations. We elected to proceed. [facility] Maternal- Medicine Office Note Reason [...] will be undergoing genetic testing through the microwave technician. There is family history of hypospadias and [...] Anemia Antiphospholipid antibody syndrome Cerebral infarction, unspecified ([facility]) 05/16/2019 Hypothyroid Migraine without aura and without status migrainosus, not intractable 09/12/2017 Stroke ([facility]) 2016 PSHIST: Past Surgical History: Procedure Laterality [...] to continue to send blood glucoses to [facility] to review - continue Lovenox 40 [...] Mukul Noyola MD, FACOG (she/hers) Maternal- Medicine [facility] [address] [facility] [address] [place] [address] This document was created with Inktank technology. Though I make every effort to review the dictation as it is transcribed, on occasion the spoken word can be misinterpreted by the technology leading to inappropriate words, phrases, or sentences. This note is addressed to the requesting provider as a consultation for clinical guidance. Specificmedical abbreviations are occasionally used and those are generally approved by the [place]?Board of?Obstetrics and?Gynecology?as well as?Elizabeth s abbreviations. The above plan of care was based solely on the diagnoses for which a consultation was requested. ?More frequent testing may be indicated based on her other medical/obstetrical conditions. The management of other or medical conditions is beyond the scope of requested consultation and will c ontinue to be followed by the primary or assistant or primary care provider. Note to [...] opinion of the practitioner. documented in this encounterLouis Stokes Cleveland VA Medical CenterClickEquations10-07-2025 NoteEchocardiology Procedure Exam Date/Time Accession # Ordering Dr. Connolly Transthoracic 02/03/2025 10:00 EDT [id number] Wilton HERRMANN DO R Complete CPT code 20170 71808 Reason for Exam (Echo Transthoracic Complete) Dizziness and giddiness E07.9, O09.522 R42 Report [facility] [address] [place] [address] Adult Echocardiogram Report Name: SANNA RENDON Study [...] Physician: Wilton HERRMANN Performed By: Marry Peng [facility] Interpretation Summary There is Trace [...] mmHg FINAL REPORT Dictated: 02/03/2025 8:09 am Roland ROSARIO, Merrick Dupree Signed (Electronic Signature): 02/03/2025 1:41 pm Signed by: Merrick Watkins MD Transcribed by: [facility] Technologist: [facility] Health[facility]ad[facility]09-22-2025 History of Present illness Narrative* Celia Inna, EQUIPMENT OPERATOR - 01/19/2025 9:00 AM EDT Reason for Appointment: Patient ID: Sanna Rendon is a 39 y.o. female who presents for Routine Visit Patient presents today for Return OB appointment. MEDICATIONS Current Outpatient Medications Medication Instructions Alcohol Swabs (Alcohol Prep Pad) 70 % pads 1 Pad, Topical, Daily, Use four times daily to check FSBS. Blood Glucose Monitoring Suppl (D-Zango Glucometer) w/Device kit 1 kit, Does not [...] Diagnosis Date Noted 32 weeks gestation of ([facility]) 11/28/2019 Abdominal pain 06/12/2023 Acute bronchitis due to infection 06/12/2023 Acute on chronic vesicular eczema of hands and feet 11/15/2023 Anemia complicating childbirth ([facility]) 01/16/2020 Anticoagulant long-term use 02/22/2020 Antiphospholipid antibody positive 09/10/2017 Antiphospholipid antibody syndrome ([facility]) 07/07/2019 Anxiety 06/12/2023 Blood pressure elevated without history of HTN 11/15/2023 BMI 37.0-37.9, adult 11/15/2023 Cerebral infarction, unspecified ([facility]) 05/16/2019 Cerebrovascular accident (CVA) due to stenosis of middle cerebral artery (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 ([facility]) 01/08/2020 Coagulation defect, unspecified ([facility]) 02/05/2019 Cold intolerance 11/15/2023 Deficiency of other specified B group vitamins 05/16/2019 Deviated septum 11/15/2023 Dizziness and giddiness 02/05/2019 Dry mouth 11/15/2023 Dysfunction of eustachian tube 06/12/2023 Dyspnea 06/12/2023 Elevated blood pressure reading 11/15/2023 Encounter for supervision of normal , unspecified, first trimester ([facility]) 05/29/2019 Environmental allergies 11/15/2023 Fatigue 12/29/2016 First degree perineal laceration during delivery ([facility]) 01/16/2020 Frequency of micturition 02/19/2019 Genitourinary symptoms 08/19/2021 Gestational diabetes mellitus (GDM), antepartum ([facility]) 01/26/2022 H/O: hypothyroidism 11/15/2023 Hematochezia 06/12/2023 History [...] anemia 01/16/2020 Irregular uterine bleeding 11/15/2023 problem ([facility]) 06/12/2023 Less than 8 weeks gestation of ([facility]) 06/05/2019 intermediate project manager (current) use of 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/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 02/05/2019 Migraine without aura and without status migrainosus, not intractable 09/12/2017 Morbid obesity ([facility]) 11/15/2023 Muscle fasciculation 08/19/2021 Nasal polyps 11/15/2023 Non-smoker 11/15/2023 NEETA (obstructive sleep apnea) 11/15/2023 Other acute postprocedural pain 02/03/2019 Other general symptoms and signs 10/28/2019 Other immediate hemorrhage ([facility]) 01/16/2020 Other specified noninflammatory disorders of vagina 02/21/2019 Pain in joint 12/29/2016 Palpitations 08/26/2019 Paresthesia of bilateral legs 11/15/2023 Pelvic and perineal pain 02/01/2019 Personal history of urinary (tract) infections 01/16/2020 Pre-diabetes 11/15/2023 Primary hypercoagulable state ([facility]) 08/01/2022 Pruritus, unspecified 01/02/2020 Psychogenic hyperventilation 06/12/2023 Raised antibody titer 09/25/2017 Right lower quadrant pain 11/15/2023 Right otitis externa 11/15/2023 Salivary gland swelling 11/15/2023 Single live ([facility]) 01/15/2020 Snoring 11/15/2023 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) 12/30/2019 Suspected severe acute respiratory syndrome coronavirus 2 (SARS-CoV-2) infection 06/12/2023 SVT (supraventricular tachycardia) ([facility]) 08/26/2019 Syncope and collapse 06/03/2018 Other bacterial infections of unspecified site 06/27/2019 Thrombocytopenia, unspecified 11/20/2019 Hypoglycemia 06/12/2023 Unspecified condition associated with female genital organs and menstrual cycle 05/09/2019 Unspecified ovarian cyst, right side 02/06/2019 Urinary tract infection 10/16/2019 Referred otalgia of right ear 11/19/2023 LPRD (laryngopharyngeal reflux disease) 11/19/2023 H/O loss 01/05/2025 Multigravida of advanced maternal age in second trimester ([facility]) 01/05/2025 Thyroid disease 01/05/2025 Resolved Ambulatory Problems [...] drainage of cyst WISDOM TOOTH EXTRACTION 2007 [place] teeth REVIEW OF SYSTEMS Review of Systems: [...] nursing note reviewed. Exam conducted with a pulmonary function technologist present. Vitals: Estimated body mass index is 34.14 kg/m as calculated from the following: Height as of 11/19/23: 5' 6 . Weight as of this encounter: 211 lb 8 oz. BP: 124/70 Patient's last menstrual period was 07/28/2024. ASSESSMENT & PLAN ICD-10-CM 1. Second trimester ([facility]) Z34.92 POCT urinalysis dipstick manually resulted 2. 25 weeks gestation of ([facility]) Z3A.25 3. Gestational diabetes mellitus (GDM), antepartum, gestational diabetes method of control unspecified ([facility]) O24.419 metFORMIN XR (Glucophage-XR) 500 MG 24 [...] to [facility] pharmacy. Growth ultrasound at28 weeks as well as NST and BPP at 28 weeks. Documented by Celia Keith NP on behalf of: Wilton Herrmann DO documented in this encounterMadison Medical [id number] History of Present illness Narrative* Roxana Smith PA-C - 01/13/2025 10:00 AM EDT Maternal- Medicine Consultation VIDEO Patient is present at home , provider present at [facility] HISTORY OF PRESENT ILLNESS: Sanna Rendon is [...] more likely to fail compared to insulin. intermediate project manager data on children whose mothers took oral [...] regards to medication - See previous MFM notes - MFM and hematology recommend therapeutic [...] so she can have them done at [facility] - Anatomy survey with MFM -followsup scheduled [...] by e-mail to: or by fax to: [phone] Roxana Smith PA-C Maternal- Medicine Office phone: [phone] Roxana Smith PA-C 01/13/25 1031 documented in this encounterTriHealth09-16-2025 Miscellaneous Notes* Medical Student - Mike Aquino [...] the legal medical record. documented in this encounterTriHealth09-16-2025 Progress note* Medical Student - Mike Aquino [...] a part of the legal medical record. [facility]09-12-2025 Miscellaneous Notes* Telephone Encounter - Mukul Noyola [...] answered. MUKUL NOYOLA MD documented in this encounterTriHealth09-12-2025 Telephone encounter Note* Telephone Encounter - Mukul [...] questions and concerns answered. MUKUL NOYOLA MD [facility] JW [id number] Miscellaneous Notes* Telephone Encounter - Jacque Pat RN - 01/07/2025 10:29 AM EDT Vice President Of Procurement called and spoke to patient yesterday to discuss a several topics. Vice President Of Procurement asked if patient wanted another follow up cervical length. Patient declined. We also discussed her insulin dosage. Patient had not started her NPH insulin yet because her pharmacy did not notify her it was ready for pickup. She asked if she could start at 4 units instead of 8. She is worried because she had a bad reaction when she took Lantus previously. Vice President Of Procurement discussed this with Dr. Noyola and she is okay with her starting at a lower dose for now. Lastly, policy writer sales notified patient that Dr. Noyola wanted to discuss with her special forces warrant officer her Lovenox dosing. Patient stated there was some confusion if she should be on 40mg or 80mg, patient prefers to be on the lower dose. Patient is seeing a Dr. Calix from the [facility] hematology office in [place]. Notified patient that we will reach out to her special forces warrant officer to discuss her dosing. documented in this encounterCleveland Clinic [facility]or Hospital Intellinote [id number] Telephone encounter Note* Telephone Encounter - Jacque Pat RN - 01/07/2025 10:29 AM EDT Vice President Of Procurement called and spoke to patient yesterday to discuss a several topics. Vice President Of Procurement asked if patient wanted another follow up cervical length. Patient declined. We also discussed her insulin dosage. Patient had not started her NPH insulin yet because her pharmacy did not notify her it was ready for pickup. She asked if she could start at 4 units instead of 8. She is worried because she had a bad reaction when she took Lantus previously. Vice President Of Procurement discussed this with Dr. Noyola and she is okay with her starting at a lower dose for now. Lastly, policy writer sales notified patient that Dr. Noyola wanted to discuss with her special forces warrant officer her Lovenox dosing. Patient stated there was some confusion if she should be on 40mg or 80mg, patient prefers to be on the lower dose. Patient is seeing a Dr. Calix from the [facility] hematology office in [place]. Notified patient that we will reach out to her special forces warrant officer to discuss her dosing. [facility] [id number] History of Present illness Narrative* Rosi Murray [...] Diagnosis Date Noted 32 weeks gestation of ([facility]) 11/28/2019 Abdominal pain 06/12/2023 Acute bronchitis due to infection 06/12/2023 Acute on chronic vesicular eczema of hands and feet 11/15/2023 Anemia complicating childbirth ([facility]) 01/16/2020 Anticoagulant long-term use 02/22/2020 Antiphospholipid antibody positive 09/10/2017 Antiphospholipid antibody syndrome ([facility]) 07/07/2019 Anxiety 06/12/2023 Blood pressure elevated without history of HTN 11/15/2023 BMI 37.0-37.9, adult 11/15/2023 Cerebral infarction, unspecified ([facility]) 05/16/2019 Cerebrovascular accident (CVA) due to stenosis of middle cerebral artery (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 ([facility]) 01/08/2020 Coagulation defect, unspecified ([facility]) 02/05/2019 Cold intolerance 11/15/2023 Deficiency of other specified B group vitamins 05/16/2019 Deviated septum 11/15/2023 Dizziness and giddiness 02/05/2019 Dry mouth 11/15/2023 Dysfunction of eustachian tube 06/12/2023 Dyspnea 06/12/2023 Elevated blood pressure reading 11/15/2023 Encounter for supervision of normal , unspecified, first trimester ([facility]) 05/29/2019 Environmental allergies 11/15/2023 Fatigue 12/29/2016 First degree perineal laceration during delivery ([facility]) 01/16/2020 Frequency of micturition 02/19/2019 Genitourinary symptoms 08/19/2021 Gestational diabetes mellitus (GDM), antepartum ([facility]) 01/26/2022 H/O: hypothyroidism 11/15/2023 Hematochezia 06/12/2023 History [...] anemia 01/16/2020 Irregular uterine bleeding 11/15/2023 problem ([facility]) 06/12/2023 Less than 8 weeks gestation of ([facility]) 06/05/2019 intermediate project manager (current) use of 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/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 02/05/2019 Migraine without aura and without status migrainosus, not intractable 09/12/2017 Morbid obesity ([facility]) 11/15/2023 Muscle fasciculation 08/19/2021 Nasal polyps 11/15/2023 Non-smoker 11/15/2023 NEETA (obstructive sleep apnea) 11/15/2023 Other acute postprocedural pain 02/03/2019 Other general symptoms and signs 10/28/2019 Other immediate hemorrhage ([facility]) 01/16/2020 Other specified noninflammatory disorders of vagina 02/21/2019 Pain in joint 12/29/2016 Palpitations 08/26/2019 Paresthesia of bilateral legs 11/15/2023 Pelvic and perineal pain 02/01/2019 Personal history of urinary (tract) infections 01/16/2020 Pre-diabetes 11/15/2023 Primary hypercoagulable state ([facility]) 08/01/2022 Pruritus, unspecified 01/02/2020 Psychogenic hyperventilation 06/12/2023 Raised antibody titer 09/25/2017 Right lower quadrant pain 11/15/2023 Right otitis externa 11/15/2023 Salivary gland swelling 11/15/2023 Single live ([facility]) 01/15/2020 Snoring 11/15/2023 Speech and language deficit [...] drainage of cyst WISDOM TOOTH EXTRACTION 2007 [place] teeth REVIEW OF SYSTEMS Review of Systems: [...] nursing note reviewed. Exam conducted with a pulmonary function technologist present. Vitals: Estimated body mass index is 33.73 kg/m as calculated from the following: Height as of 11/19/23: 5' 6 . Weight as of this encounter: 209 lb. BP: 122/74 Patient's last menstrual period was 07/28/2024. ASSESSMENT & PLAN ICD-10-CM 1. Second trimester ([facility]) Z34.92 POCT urinalysis dipstick manually resulted 2. 23 weeks gestation of ([facility]) Z3A.23 3. Thyroid disease E07.9 Echocardiogram 2D complete ECG 12 lead unit performed Echocardiogram 2D complete 4. Gestational diabetes mellitus (GDM), antepartum, gestational diabetes method of control unspecified ([facility]) O24.419 Echocardiogram 2D complete ECG 12 lead unit performed Echocardiogram 2D complete 5. Multigravida of advanced maternal age in second trimester ([facility]) O09.522 Echocardiogram 2D complete ECG 12 lead [...] by Rosi Murray LPN on behalf of: DO Marjorie Lawtonally signed by Rosi Murray LPN at 01/06/2025 9:21 AM EDT documented in this encounterMadison Medical [id number] History of Present illness Narrative* Jacque Pat RN - 01/05/2025 10:20 AM EDT NPH insulin prior authorization approved. Confirmed via telephone call with automated voice messaging system. Prior authorization number [id number] documented in this encounterTriHealth09-04-2025 History of Present illness Narrative* Mukul Noyola MD - 01/01/2025 2:30 PM EDT Images from the original note were not included. Video Visit via Real-time Synchronous Audiovisual Provider Location: [facility]- MEDICINE AT [address] [address] Patient Location: [facility] Patient Location Retail Buyer: None Video Visit Consent Statement: I discussed [...] that there are some limitations compared to [id number]-yg-oohk evaluations. We elected to proceed. [facility] Maternal- Medicine Consult Note Reason For Consult: [...] will be undergoing genetic testing through the microwave technician. There is family history of hypospadias and [...] Anemia Antiphospholipid antibody syndrome Cerebral infarction, unspecified ([facility]) 05/16/2019 Hypothyroid Migraine without aura and without status migrainosus, not intractable 09/12/2017 Stroke ([facility]) 2016 PSHIST: Past Surgical History: Procedure Laterality [...] contrast; Future - [facility] - [place], [place]; Future 2. Antiphospholipid syndrome complicating , antepartum - Echo complete W/O contrast; Future - [facility] - [place], [place]; Future 3. History of stroke 4. [...] intermittent symptoms concerning for an autoimmune condition [id number]. I recommended she sees a nurse specialist. Referral given. I asked her to hold [...] supposed to undergo genetic testing with her microwave technician. After the patient left I found that [...] asymptomatic I recommend that she sees a soda flaker and she desires referral locally. Recommendations: - increase metformin to 1500 mg at night - she is willing to try the NPH 8 units at night - to continue to send blood glucoses to [facility] to review - follow-up survey and [...] Mukul Noyola MD, FACOG (she/hers) Maternal- Medicine [address] [address] This document was created with Inktank technology. Though I make every effort to review the dictation as it is transcribed, on occasion the spoken word can be misinterpreted by the technology leading to inappropriate words, phrases, or sentences. This note is addressed to the requesting provider as a consultation for clinical guidance. Specificmedical abbreviations are occasionally used and those are generally approved by the [place]?Board of?Obstetrics and?Gynecology?as well as?Elizabeth guzman abbreviations. The above plan of care was based solely on the diagnoses for which a consultation was requested. ?More frequent testing may be indicated based on her other medical/obstetrical conditions. The management of other or medical conditions is beyond the scope of requested consultation and will c randyinue to be followed by the primary or assistant or primary care provider. Note to [...] male Have you been seen here at [facility] in a previous ? yes Recent ER visits or hospitalizations? Seen in L&D for cramping about 2 weeks ago Bring blood sugar log or meter with you today? (Please bring them with you for every visit at [facility]) scanned to media tab Flu vaccine (Feb-June)? no Any concerns that you would like me to mention to the provider today? No concerns documented in this encounterLouis Stokes Cleveland VA Medical CenterEndavo Media and Communications [facility] Medical [id number] Miscellaneous Notes* Telephone Encounter - PRISCILLA Del [...] and basics of CGM explained. Will send Telogis message with instructions on how to connect to our [facility] account. Explained how to prudence notes on the ChannelBreeze kennedy for fasting BG and meals. documented in this encounterNorth Country HospitalMetabiota [id number] Telephone encounter Note* Telephone Encounter - PRISCILLA [...] and basics of CGM explained. Will send Telogis message with instructions on how to connect to our [facility] account. Explained how to prudence notes on the Jenifer kennedy for fasting BG and meals. [employer]08-26-2025 NoteHNO ID: [id number] Author: KATHERINE NEGRETE APRN.POWER WASHER Service: ? Author Type: Nurse Practitioner Type: Progress Notes Filed: 12/24/2024 21:07 Note Text: NAME: Sanna Rendon CLINIC NO.: [id number] DATE OF SERVICE: December 23, 2024 (Penelope) [...] later in 2018. These were found in [place], [place]. I don't have access to these [...] target-like rash shortly before presenting to [facility] in 2016 with headaches and was [...] g/dL, and platelets a (more content not included)...[facility]08-26-2025 History of Present illness Narrative* Katherine Negrete APRN.POWER WASHER - 12/23/2024 11:50 AM EDT Images from the original note were not included. NAME: Sanna Rendon CLINIC NO.: [id number] DATE OF SERVICE: December 23, 2024 (Penelope) [...] later in 2018. These were found in [place], [place]. I don't have access to these [...] target-like rash shortly before presenting to [facility] in 2016 with headaches and was [...] Monge soon. When she hada stroke in [place], she had symptoms up to a month before: uncontrollable headache, BP was elevated, knee stiffness, and blurry vision. Right facial drooping [facility] to [facility]. Updated [...] and stayed on Lovenox Hgb 13.1 @ [facility] Recommended ER if persisting bleeding but she [...] and at age 69. Both lived in [facility] but she was adopted. She was not able to see ID in October and will be seeing Dr. Baugh next week. Also will have her see Dr. Hamlin for her clotting disorder and make any other recommendations to optimize her treatment. Updated Visit, October 08, 2020: Telephone only Received call from pt stating she was seen in [facility] ER for numbness in her chest, throat, and extremities, and sob which has been worsening over the last week. We arranged a telephone visit for her toreview questions with me. Sanna Rendon is a 34 year old female seen for Hypercoagulable state and recent concerns and symptoms that required her to be seen at [facility] ER. She went to the ER with Gradual worsening of breathing after progressive tingling of fingers and legs. She currently remains very fatigued even though she is sleeping well. Now recalls that before her stroke she remembers having a bull's eye rash and was seen with severe headaches in [place], [place] - was found to have a [...] a root canal and was sent to [facility] for MRI which was negative but non-contrasted. [...] history goes back to January 2016 in [facility] where she had persisting headaches and slurred speech followed by lower extremity weakness. This took a few months to resolve and she is back to her normal state of being but some point in time during her her next she was seen by Dr. Humera Hyde in [place] as well and was found to have [...] which included preparing to see the patient, [id number] patient care, completing clinical documentation, obtaining and/or reviewing separately obtained history, performing a medically appropriate examination, counseling and educating the pat ient/family/caregiver, ordering medications, tests, or procedures, independently interpreting results (not separately reported), and communicating results to the patient/family/caregiver. Katherine Negrete APRN.CNP Hematology and Oncology Services Provided at: [place], [place] CC: MD Wilton Day[address] [place] [address] Humaira Gaviria MD [address] [place] [address] MD Cosmo Kingston MD Michael Blank, MD documented in this encounterKettering Memorial Hospital08-20-2025 History of Present illness Narrative* BRENNEN Guillen - 12/17/2024 3:30 PM EDT REASON FOR OFFICE VISIT: Video Visit via Real-time Synchronous Audiovisual Provider Location: [facility]- MEDICINE AT [address] [address] Patient Location: Patient's home Video [...] that there are some limitations compared to wypf-[id number] evaluations. The patient consented to the presence [...] a reaction that she reported to the MFM office after her first dose and she [...] TSH 1.25 10/28/2024 No results found for: [id number] No results found for: CREATININE , BUN [...] of surplus red blood cells after the infant has been delivered. Achieving a euglycemic state [...] values to us weekly by e-mail to: [email or web address] or by fax to: [phone] TIME OF CONSULTATION: 45 minutes with the patient, >50% in discussion and counseling, coordination of care which was [id number], review of records and communication back to referring provider. BRENNEN Guillen 12/17/24 1619 documented in this encounterTriHealth08-15-2025 Miscellaneous Notes* Telephone Encounter - PRISCILLA Sutherland [...] 12/17/2024. Sanna verbalized understanding. documented in this encounterTriHealth08-15-2025 Telephone encounter Note* Telephone Encounter - PRISCILLA [...] Alisa Saba APRN 12/17/2024. Sanna verbalized understanding. [facility] Work Phone: 1(243) 680-565208-15-2025 Miscellaneous Notes* Telephone Encounter - PRISCILLA Sutherland [...] tried higher fiber snacks in the evening. Vice President Of Procurement told her that I would relay her concerns to [facility] physician and get back to her. Obtained blood sugars for this week and will scan them into her chart. documented in this encounterTriHealth08-15-2025 Telephone encounter Note* Telephone Encounter - PRISCILLA [...] tried higher fiber snacks in the evening. Vice President Of Procurement told her that I would relay her concerns to [facility] physician and get back to her. Obtained blood sugars for this week and will scan them into her chart. [employer] Work Phone: 1(559) 424-861108-14-2025 History of Present illness Narrative* Rosi Murray [...] Diagnosis Date Noted 32 weeks gestation of ([facility]) 11/28/2019 Abdominal pain 06/12/2023 Acute bronchitis due to infection 06/12/2023 Acute on chronic vesicular eczema of hands and feet 11/15/2023 Anemia complicating childbirth ([facility]) 01/16/2020 Anticoagulant long-term use 02/22/2020 Antiphospholipid antibody positive 09/10/2017 Antiphospholipid antibody syndrome ([facility]) 07/07/2019 Anxiety 06/12/2023 Blood pressure elevated without history of HTN 11/15/2023 BMI 37.0-37.9, adult 11/15/2023 Cerebral infarction, unspecified ([facility]) 05/16/2019 Cerebrovascular accident (CVA) due to stenosis of middle cerebral artery (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 ([facility]) 01/08/2020 Coagulation defect, unspecified ([facility]) 02/05/2019 Cold intolerance 11/15/2023 Deficiency of other specified B group vitamins 05/16/2019 Deviated septum 11/15/2023 Dizziness and giddiness 02/05/2019 Dry mouth 11/15/2023 Dysfunction of eustachian tube 06/12/2023 Dyspnea 06/12/2023 Elevated blood pressure reading 11/15/2023 Encounter for supervision of normal , unspecified, first trimester ([facility]) 05/29/2019 Environmental allergies 11/15/2023 Fatigue 12/29/2016 First degree perineal laceration during delivery ([facility]) 01/16/2020 Frequency of micturition 02/19/2019 Genitourinary symptoms 08/19/2021 Gestational diabetes mellitus (GDM) affecting ([facility]) 01/26/2022 H/O: hypothyroidism 11/15/2023 Hematochezia 06/12/2023 History [...] anemia 01/16/2020 Irregular uterine bleeding 11/15/2023 problem ([facility]) 06/12/2023 Less than 8 weeks gestation of ([facility]) 06/05/2019 skilled nursing (current) use of 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/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 02/05/2019 Migraine without aura and without status migrainosus, not intractable 09/12/2017 Morbid obesity ([facility]) 11/15/2023 Muscle fasciculation 08/19/2021 Nasal polyps 11/15/2023 Non-smoker 11/15/2023 NEETA (obstructive sleep apnea) 11/15/2023 Other acute postprocedural pain 02/03/2019 Other general symptoms and signs 10/28/2019 Other immediate hemorrhage ([facility]) 01/16/2020 Other specified noninflammatory disorders of vagina 02/21/2019 Pain in joint 12/29/2016 Palpitations 08/26/2019 Paresthesia of bilateral legs 11/15/2023 Pelvic and perineal pain 02/01/2019 Personal history of urinary (tract) infections 01/16/2020 Pre-diabetes 11/15/2023 Primary hypercoagulable state ([facility]) 08/01/2022 Pruritus, unspecified 01/02/2020 Psychogenic hyperventilation 06/12/2023 Raised antibody titer 09/25/2017 Right lower quadrant pain 11/15/2023 Right otitis externa 11/15/2023 Salivary gland swelling 11/15/2023 Single live ([facility]) 01/15/2020 Snoring 11/15/2023 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) 12/30/2019 Suspected severe acute respiratory syndrome coronavirus 2 (SARS-CoV-2) infection 06/12/2023 SVT (supraventricular tachycardia) ([facility]) 08/26/2019 Syncope and collapse 06/03/2018 Other [...] drainage of cyst WISDOM TOOTH EXTRACTION 2007 [place] teeth REVIEW OF SYSTEMS Review of Systems: [...] nursing note reviewed. Exam conducted with a pulmonary function technologist present. Vitals: Estimated body mass index is 33.41 kg/m as calculated from the following: Height as of 11/19/23: 5' 6 . Weight as of this encounter: 207 lb. BP: 120/70 Patient's last menstrual period was 07/28/2024. ASSESSMENT & PLAN ICD-10-CM 1. 19 weeks gestation of ([facility]) Z3A.19 POCT urinalysis dipstick manually resulted 2. Second trimester ([facility]) Z34.92 POCT urinalysis dipstick manually resulted 3. Thyroid disease E07.9 4. Multigravida of advanced maternal age in second trimester ([facility]) O09.522 5. Gestational diabetes mellitus (GDM), antepartum, gestational diabetes method of control unspecified ([facility]) O24.419 Patient presents today for a routine [...] scan and Telemedicine with MFM provider in [place]. Documented by Rosi Murray LPN on behalf of: Wilton Herrmann DO documented in this encounterMadison Medical [id number] Miscellaneous Notes* Telephone Encounter - Anni Abreu CMA - 12/03/2024 3:01 PM EDT Left message with patient to call our office to schedule her next appt in 2 week with an EQUIPMENT OPERATOR/PA. Left call back number and to press option 3 for scheduling. documented in this encounterTriHealth08-06-2025 Telephone encounter Note* Telephone Encounter - Anni Abreu CMA - 12/03/2024 3:01 PM EDT Left message with patient to call our office to schedule her next appt in 2 week with an EQUIPMENT OPERATOR/PA. Left call back number and to press option 3 for scheduling. [facility]08-06-20[facility] History of Present illness Narrative* Alisa Saba, NURSING SERVICE DIRECTOR-POWER WASHER - 12/03/2024 2:00 PM EDT REASON FOR [...] starting insulin. She is being followed at [facility] due to GDMA2. States she is [...] TSH 1.25 10/28/2024 No results found for: [id number] No results found for: CREATININE , BUN [...] baby. Little research has been done on nursing home effects of Metformin exposure to the fetus. [...] by e-mail to: or by fax to: [phone] TIME OF CONSULTATION: 60 minutes with the patient, >50% in discussion and counseling, coordination of care which was [id number], review of records and communication back to referring provider. BRENNEN Guillen 12/03/24 1500 documented in this encounterLouis Stokes Cleveland VA Medical CenterEndavo Media and Communications [facility] Medical [id number] History of Present illness Narrative* Rosi Murray [...] Diagnosis Date Noted 32 weeks gestation of ([facility]) 11/28/2019 Abdominal pain 06/12/2023 Acute bronchitis due to infection 06/12/2023 Acute on chronic vesicular eczema of hands and feet 11/15/2023 Anemia complicating childbirth ([facility]) 01/16/2020 Anticoagulant long-term use 02/22/2020 Antiphospholipid antibody positive 09/10/2017 Antiphospholipid antibody syndrome ([facility]) 07/07/2019 Anxiety 06/12/2023 Blood pressure elevated without history of HTN 11/15/2023 BMI 37.0-37.9, adult 11/15/2023 Cerebral infarction, unspecified ([facility]) 05/16/2019 Cerebrovascular accident (CVA) due to stenosis of middle cerebral artery (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 ([facility]) 01/08/2020 Coagulation defect, unspecified ([facility]) 02/05/2019 Cold intolerance 11/15/2023 Deficiency of other specified B group vitamins 05/16/2019 Deviated septum 11/15/2023 Dizziness and giddiness 02/05/2019 Dry mouth 11/15/2023 Dysfunction of eustachian tube 06/12/2023 Dyspnea 06/12/2023 Elevated blood pressure reading 11/15/2023 Encounter for supervision of normal , unspecified, first trimester ([facility]) 05/29/2019 Environmental allergies 11/15/2023 Fatigue 12/29/2016 First degree perineal laceration during delivery ([facility]) 01/16/2020 Frequency of micturition 02/19/2019 Genitourinary symptoms 08/19/2021 Gestational diabetes mellitus (GDM) affecting ([facility]) 01/26/2022 H/O: hypothyroidism 11/15/2023 Hematochezia 06/12/2023 History [...] anemia 01/16/2020 Irregular uterine bleeding 11/15/2023 problem ([facility]) 06/12/2023 Less than 8 weeks gestation of ([facility]) 06/05/2019 skilled nursing (current) use of 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/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 02/05/2019 Migraine without aura and without status migrainosus, not intractable 09/12/2017 Morbid obesity ([facility]) 11/15/2023 Muscle fasciculation 08/19/2021 Nasal polyps 11/15/2023 Non-smoker 11/15/2023 NEETA (obstructive sleep apnea) 11/15/2023 Other acute postprocedural pain 02/03/2019 Other general symptoms and signs 10/28/2019 Other immediate hemorrhage ([facility]) 01/16/2020 Other specified noninflammatory disorders of vagina 02/21/2019 Pain in joint 12/29/2016 Palpitations 08/26/2019 Paresthesia of bilateral legs 11/15/2023 Pelvic and perineal pain 02/01/2019 Personal history of urinary (tract) infections 01/16/2020 Pre-diabetes 11/15/2023 Primary hypercoagulable state ([facility]) 08/01/2022 Pruritus, unspecified 01/02/2020 Psychogenic hyperventilation 06/12/2023 Raised antibody titer 09/25/2017 Right lower quadrant pain 11/15/2023 Right otitis externa 11/15/2023 Salivary gland swelling 11/15/2023 Single live ([facility]) 01/15/2020 Snoring 11/15/2023 Speech and language deficit [...] drainage of cyst WISDOM TOOTH EXTRACTION 2007 [place] teeth REVIEW OF SYSTEMS Review of Systems: [...] nursing note reviewed. Exam conducted with a pulmonary function technologist present. Vitals: Estimated body mass index is 33.57 kg/m as calculated from the following: Height as of 11/19/23: 5' 6 . Weight as of this encounter: 208 lb. BP: 108/76 Patient's last menstrual period was 07/28/2024. ASSESSMENT & PLAN ICD-10-CM 1. Second trimester ([facility]) Z34.92 Alpha fetoprotein, maternal Alpha fetoprotein, maternal 2. 16 weeks gestation of ([facility]) Z3A.16 POCT urinalysis dipstick manually resulted 3. Screening, , for anatomic survey ([facility]) Z36.89 CANCELED: US OB 14+ weeks anatomy [...] routine OB appointment as patient will be seeingFM in between today's appointment and next appointment. Documented by Rosi Murray LPN on behalf of: Wilton Herrmann DO documented in this encounterMadison Medical [id number] Group counseling note* Group Note - Cindy [...] Face to face time was 100 minutes. [employer] Work Phone: 1(942) 440-624307-23-2025 Miscellaneous Notes* Group Note - Cindy Miller [...] time was 100 minutes. documented in this encounterTriHealth07-09-2025 Telephone encounter Note* Telephone Encounter - Rachael Johnson RN - 11/05/2024 12:48 PM EDT Pt updated. She reports she is unable to take aspirin. It makes my electrolytes go out of whack. Ididn't take with my previous pregnancies and I am not comfortable taking this time either. She will continue with Lovenox, as recommended. Pt is scheduled for appt with higher education administrator, 11/19/24, [facility]. She denies further questions, needs or concerns for our care team at this time. Appt verified for RTC Rachael Johnson RN [facility]07-09-2025 Miscellaneous Notes* Telephone Encounter - Rachael Johnson RN - 11/05/2024 12:48 PM EDT Pt updated. She reports she is unable to take aspirin. It makes my electrolytes go out of whack. Ididn't take with my previous pregnancies and I am not comfortable taking this time either. She will continue with Lovenox, as recommended. Pt is scheduled for appt with higher education administrator, 11/19/24, [facility]. She denies further questions, [...] this time. Will monitor. Katherine Sofia APRN.CNP * Telephone Encounter - Abbie Jimenez PA-C [...] note were not included. documented in this encounterKettering [facility] Hospital07-09-2025 Telephone encounter Note * Telephone Encounter - Katherine Negrete APRN.CNP - 11/05/2024 12:29 PM EDT Spoke with Dr. Moscoso and she is to continue Lovenox 40 daily and add baby asa (81 mg) daily. Please also make sure she is following OB High risk. Labs acceptable at this time. Will monitor. Katherine Sofia APRN.CNP [facility] Work Phone: [phone] 481-581207-08-2025 Telephone encounter Note* Telephone Encounter - Abbie Jimenez PA-C - 11/04/2024 8:13 AM EDT Katherine saw this patient last and will be able to advise better of the plan of care. Abbie Jimenez PA-C [facility] Work Phone: 1([phone]) 276-393507-03-2025 History of Present illness Narrative* Rosi Murray [...] Diagnosis Date Noted 32 weeks gestation of ([facility]) 11/28/2019 Abdominal pain 06/12/2023 Acute bronchitis due to infection 06/12/2023 Acute on chronic vesicular eczema of hands and feet 11/15/2023 Anemia complicating childbirth ([facility]) 01/16/2020 Anticoagulant long-term use 02/22/2020 Antiphospholipid antibody positive 09/10/2017 Antiphospholipid antibody syndrome ([facility]) 07/07/2019 Anxiety 06/12/2023 Blood pressure elevated without history of HTN 11/15/2023 BMI 37.0-37.9, adult 11/15/2023 Cerebral infarction, unspecified ([facility]) 05/16/2019 Cerebrovascular accident (CVA) due to stenosis of middle cerebral artery (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 ([facility]) 01/08/2020 Coagulation defect, unspecified ([facility]) 02/05/2019 Cold intolerance 11/15/2023 Deficiency of other specified B group vitamins 05/16/2019 Deviated septum 11/15/2023 Dizziness and giddiness 02/05/2019 Dry mouth 11/15/2023 Dysfunction of eustachian tube 06/12/2023 Dyspnea 06/12/2023 Elevated blood pressure reading 11/15/2023 Encounter for supervision of normal , unspecified, first trimester ([facility]) 05/29/2019 Environmental allergies 11/15/2023 Fatigue 12/29/2016 First degree perineal laceration during delivery ([facility]) 01/16/2020 Frequency of micturition 02/19/2019 Genitourinary symptoms 08/19/2021 Gestational diabetes mellitus (GDM) affecting ([facility]) 01/26/2022 H/O: hypothyroidism 11/15/2023 Hematochezia 06/12/2023 History [...] anemia 01/16/2020 Irregular uterine bleeding 11/15/2023 problem ([facility]) 06/12/2023 Less than 8 weeks gestation of ([facility]) 06/05/2019 skilled nursing (current) use of 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/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 02/05/2019 Migraine without aura and without status migrainosus, not intractable 09/12/2017 Morbid obesity ([facility]) 11/15/2023 Muscle fasciculation 08/19/2021 Nasal polyps 11/15/2023 Non-smoker 11/15/2023 NEETA (obstructive sleep apnea) 11/15/2023 Other acute postprocedural pain 02/03/2019 Other general symptoms and signs 10/28/2019 Other immediate hemorrhage ([facility]) 01/16/2020 Other specified noninflammatory disorders of vagina 02/21/2019 Pain in joint 12/29/2016 Palpitations 08/26/2019 Paresthesia of bilateral legs 11/15/2023 Pelvic and perineal pain 02/01/2019 Personal history of urinary (tract) infections 01/16/2020 Pre-diabetes 11/15/2023 Primary hypercoagulable state ([facility]) 08/01/2022 Pruritus, unspecified 01/02/2020 Psychogenic hyperventilation 06/12/2023 Raised antibody titer 09/25/2017 Right lower quadrant pain 11/15/2023 Right otitis externa 11/15/2023 Salivary gland swelling 11/15/2023 Single live ([facility]) 01/15/2020 Snoring 11/15/2023 Speech and language deficit [...] drainage of cyst WISDOM TOOTH EXTRACTION 2007 [place] teeth REVIEW OF SYSTEMS Review of Systems: [...] nursing note reviewed. Exam conducted with a pulmonary function technologist present. Vitals: Estimated body mass index is 33.81 kg/m as calculated from the following: Height as of 11/19/23: 5' 6 . Weight as of this encounter: 209 lb 8 oz. BP: 110/76 Patient's last menstrual period was 07/28/2024. ASSESSMENT & PLAN ICD-10-CM 1. Second trimester ([facility]) Z34.92 POCT urinalysis dipstick manually resulted 2. 13 weeks gestation of ([facility]) Z3A.13 3. Thyroid disease E07.9 4. Multigravida of advanced maternal age in second trimester ([facility]) O09.522 New OB: Patient presents today for [...] or undercooked meat, [facility]. Patient has been consulted regarding any further do's and don'tsof . Patient voiced understanding and all questions and concerns were answered. Patient is currently on 40 Lovenox and will be referred to [facility] for recommendations/co-management throughout . Discussed concerns [...] of: Wilton Herrmann DO documented in this encounterMadison Medical [id number] Telephone encounter Note* Telephone Encounter - Valeri Yeung RN - 10/30/2024 8:30 AM EDT Labs resulted. Please advise. Valeri Yeung RN [facility]07-01-2025 Telephone encounter Note* Telephone Encounter - Roberta Haskins - 10/28/2024 2:52 PM EDT Images from the original note were not included. [facility]07-01-2025 NoteHNO ID: [id number] Author: KATHERINE NEGRETE APRN.POWER WASHER Service: ? Author Type: Nurse Practitioner Type: Progress Notes Filed: 10/29/2024 21:44 Note Text: NAME: Sanna Rendon CLINIC NO.: [id number] DATE OF SERVICE: October 28, 2024 (Penelope) [...] later in 2018. These were found in [place], [place]. I don't have access to these [...] target-like rash shortly before presenting to [facility] in 2015 with headaches and was [...] vision changes both have (more content not included)...[facility]07-01-2025 History of Present illness Narrative* Katherine Negrete APRN.POWER WASHER - 10/28/2024 2:33 PM EDT Images from the original note were not included. NAME: Sanna Rendon CLINIC NO.: [id number] DATE OF SERVICE: October 28, 2024 ([place]elope) [...] later in 2018. These were found in [place], [place]. I don't have access to these [...] target-like rash shortly before presenting to [facility] in 2016 with headaches and was [...] Monge soon. When she hada stroke in [place], she had symptoms up to a month before: uncontrollable headache, BP was elevated, knee stiffness, and blurry vision. Right facial drooping [facility]. Updated [...] and stayed on Lovenox Hgb 13.1 @ [facility] Recommended ER if persisting bleeding but she [...] and at age 69. Both lived in [facility] but she was adopted. She was not able to see ID in October and will be seeing Dr. Baugh next week. Also will have her see Dr. Hamlin for her clotting disorder and make any other recommendations to optimize her treatment. Updated Visit, October 08, 2020: Telephone only Received call from pt stating she was seen in [facility] ER for numbness in her chest, throat, and extremities, and sob which has been worsening over the last week. We arranged a telephone visit for her toreview questions with me. Sanna Rendon is a 34 year old female seen for Hypercoagulable state and recent concerns and symptoms that required her to be seen at [facility] ER. She went to the ER with Gradual worsening of breathing after progressive tingling of fingers and legs. She currently remains very fatigued even though she is sleeping well. Now recalls that before her stroke she remembers having a bull's eye rash and was seen with severe headaches in [facility] was found to have a stroke [...] a root canal and was sent to [facility] for MRI which was negative but non-contrasted. [...] history goes back to January 2016 in [facility] where she had persisting headaches and slurred speech followed by lower extremity weakness. This took a few months to resolve and she is back to her normal state of being but some point in time during her her next she was seen by Dr. Humera Hyde in [place] as well and was found to have [...] which included preparing to see the patient, ocjf-ja-sgqv patient care, completing clinical documentation, obtaining and/or reviewing separately obtained history, performing a medically appropriate examination, counseling and educating the pat ient/family/caregiver, ordering medications, tests, or procedures, independently interpreting results (not separately reported), and communicating results to the patient/family/caregiver. Katherine Negrete APRN.TOR [facility] Provided at: [place], [place] CC: Dr. Praveen MD [address] [place] [address] Humaira Gaviria MD [address] [place] [id number] MD Cosmo Kingston MD Michael Blank, MD documented in this encounterKettering [facility] Hospital06-27-2025 Telephone encounter Note * Telephone Encounter - Kaur Dunham MA - 10/24/2024 2:14 PM EDT New orders may need placed for appt on 10/28. Kaur Dunham MA [facility]06-27-2025 Miscellaneous Notes* Telephone Encounter - Kaur Dunham MA - 10/24/2024 2:14 PM EDT New orders may need placed for appt on 10/28. Kaur Dunham MA documented in this encounterKettering Memorial Hospital06-16-2025 Miscellaneous Notes* Telephone Encounter - Margo Khan RN - 10/13/2024 12:14 PM EDT Attempted to contact patient x3, call cannot be completed, cannot receive calls at this time. Unable to leave a voicemail. documented in this encounterTriHealth06-16-2025 Telephone encounter Note* Telephone Encounter - Margo Khan RN - 10/13/2024 12:14 PM EDT Attempted to contact patient x3, call cannot be completed, cannot receive calls at this time. Unable to leave a voicemail. 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) 09/12/2017 Morbid obesity ([facility]) 11/15/2023 Muscle fasciculation 08/19/2021 Nasal polyps [...] infections 01/16/2020 Pre-diabetes 11/15/2023 Primary hypercoagulable state ([facility]) 08/01/2022 Pruritus, unspecified 01/02/2020 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[facility]) 06/12/2023 Raised antibody titer 09/25/2017 Right lower quadrant pain 11/15/2023 Right otitis externa 11/15/2023 Salivary gland swelling 11/15/2023 Single live 01/15/2020 Snoring 11/15/2023 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) 12/30/2019 Suspected severe acute respiratory syndrome coronavirus 2 (SARS-CoV-2) infection 06/12/2023 SVT (supraventricular tachycardia) ([facility]) 08/26/2019 Syncope and collapse 06/03/2018 Other bacterial infections of unspecified site 06/27/2019 Thrombocytopenia, unspecified ([facility]) 11/20/2019 Hypoglycemia 06/12/2023 Unspecified condition associated [...] drainage of cyst WISDOM TOOTH EXTRACTION 2007 [place] teeth Allergies Allergen Reactions Ciprofloxacin GI intolerance [...] Rapid drug screen, urine; Future Thyroid disease ([facility]) - TSH Nurse Note: Patient desires to have [employer] one. Pt was advised to [...] or undercooked meat, and [facility]. Patient has also been advised to [...] by: Lala Hess MA documented in this encounterMadison Medical [id number] NotePatient Education Infectious Disease Upper Respiratory Infection, [...] to help relieve symptoms, such as: ??? Qirv-tle-pcthtiu cold medicines. ??? Cough suppressants. Coughing is [...] other clear broths. General instructions ??? Take mmuq-hak-bvriuir and prescription medicines only as told by [...] and water are not available, use hand assistant store director. ??? Avoid touching your mouth, face, eyes, [...] stiff neck. ? (more content not included)...[facility]05-07-2025 Miscellaneous Notes* Telephone Encounter - Rachael [...] advise Rachael Johnson RN documented in this encounterKettering Memorial Hospital05-07-2025 Telephone encounter Note * Telephone Encounter - Rachael Johnson RN - 09/03/2024 1:25 PM EDT Pt notified and appt for September. She denies any further questions, needs or concerns at thistime. Rachael Johnson RN [facility]05-07-2025 Telephone encounter Note* Telephone Encounter - Kristofer Calix MD - 09/03/2024 12:51 PM EDT No change in meds. [facility]05-06-2025 Telephone encounter Note* Telephone Encounter - Rachael Johnson RN - 09/02/2024 9:37 AM EDT Pt left a voicemail to inform she is approximately 5 weeks . She is asking any recommendations on med changes. Pt missed today's appt. Called and left VM to please call and schedule missed follow up MUNIRA. Fely: Please advise Rachael Johnson RN [facility]04-29-2025 Telephone encounter Note* Telephone Encounter - Serina Dawson MA - 08/26/2024 3:41 PM EDT Patient has an appt on 08/27/24. Would you like labs, if so place orders. Serina Dawson MA [facility]04-29-2025 Miscellaneous Notes* Telephone Encounter - Serina Horton MA - 08/26/2024 3:41 PM EDT Patient has an appt on 08/27/24. Would you like labs, if so place orders. 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) 09/12/2017 Morbid obesity ([facility]) 11/15/2023 Muscle fasciculation 08/19/2021 Nasal polyps [...] infections 01/16/2020 Pre-diabetes 11/15/2023 Primary hypercoagulable state ([facility]) 08/01/2022 Pruritus, unspecified 01/02/2020 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[facility]) 06/12/2023 Raised antibody titer 09/25/2017 Right lower quadrant pain 11/15/2023 Right otitis externa 11/15/2023 Salivary gland swelling 11/15/2023 Single live 01/15/2020 Snoring 11/15/2023 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) 12/30/2019 Suspected severe acute respiratory syndrome coronavirus 2 (SARS-CoV-2) infection 06/12/2023 SVT (supraventricular tachycardia) ([facility]) 08/26/2019 Syncope and collapse 06/03/2018 Other bacterial infections of unspecified site 06/27/2019 Thrombocytopenia, unspecified ([facility]) 11/20/2019 Hypoglycemia 06/12/2023 Unspecified condition associated [...] Antiphospholipid syndrome ([facility]/HCC) Gestational diabetes Heartburn Hypothyroid ([facility]/HCC) Stroke ([facility]) HISTORY PAST MEDICAL HISTORY SOCIAL HISTORY Past Medical History: Diagnosis Date AMA (advanced maternal age) multigravida 35+ Anemia Antiphospholipid syndrome (CMS/HCC) Gestational diabetes Heartburn Hypothyroid ([facility]/HCC) Stroke ([facility]) Social History Tobacco Use Smoking status: [...] drainage of cyst WISDOM TOOTH EXTRACTION 2007 [place] teeth REVIEW OF SYSTEMS Review of Systems: [...] nursing note reviewed. Exam conducted with a pulmonary function technologist present. Vitals: Estimated body mass index is [...] of: Wilton Herrmann DO documented in this encounterMadison Medical [id number] NotePatient Education Emergency Medicine Bradycardia, Adult Bradycardia is a uvhold-mxpz-wieqea heartbeat. A normal resting heart rate for [...] provider. ??? Follow a heart-healthy diet. A food and nutrition supervisor (dietitian) can help educate you about healthy [...] liquor (44 mL). General instructions ??? Take hwbe-jxi-voxhgjr and prescription medicines only as told by [...] heartbeat (palpitations). ??? (more content not included)...[facility]03-03-2025 Hospital Discharge instructions Patient Education 06/30/2024 [...] Follow these instructions at home: Medicines Give ehyw-vop-txtwkha and prescription medicines only as told by [...] find more information PANDAS Network: pandasnetwork.org National [place] of Mental Health: nimh.nih.gov Contact a health [...] the National Suicide Prevention Lifeline at or 769. This is open 24 hours a day. Text the Crisis Text Line at 592541. Summary Pediatric autoimmune neuropsychiatric disorders associated with [...] provider. Document Revised: 01/09/2022 Document Reviewed: 01/09/2022 [employer] Patient Education 2023 [employer] 06/30/2024 09:20:50 Common Variable Immunodeficiency Common [...] Follow these instructions at home: Medicines Take yhdi-hog-mdbript and prescription medicines only as told by [...] disease. Where to find more information National [place] of Allergy and Infectious Disease: www.niaid.nih.gov Contact [...] risk for frequent or unusual infections. Take fqen-gca-heeipar and prescription medicines only as told by [...] provider. Document Revised: 11/18/2021 Document Reviewed: 11/18/2021 [employer] Patient Education 2023 [employer]. 06/30/2024 09:18:06 DASH Eating Plan DASH Eating [...] Dairy Whole or 2% milk, cream, and pjby-opq-nqpq. Whole or full-fat cream cheese. Whole-fat or [...] more information National Heart, Lung, and Blood [place] (NHLBI): nhlbi.nih.gov Australian Heart Association (AHA): heart.org Academy of Nutrition and Dietetics: eatright.org National Kidney Foundation (NKF): kidney.org This information is not intended to replace advice given to you by your health care provider. Make sure you discuss any questions you have with your health care provider. Document Revised: 05/03/2023 Document Reviewed: 05/03/2023 [employer] Patient Education 2023 [employer]. Follow Up Care 06/25/2024 13:53:59 With:PRAVEEN RESENDEZ FAAFP, Penelope Tony, CHRIS, PED Address: [address] [place] [address] [facility] [address]- When:Within 2 Month(s) [facility] 03-03-2025 NotePatient Education Immunology [...] these instructions at home: Medicines ??? Take qunc-svt-mumrncn and prescription medicines only as told by [...] Where to find more information ??? National [place] of Allergy and Infectious Disease: www.niaid.nih.gov Contact a health care provider if: ??? You have a fever. ??? You have any symptoms of infection such as chills, worsening cough, or severe earache. ??? You make high-pitched whistling sounds when you breathe, most often when you breathe out (wheeze). (more content not included)...[facility]02-24-2025 History of Present illness Narrative* Rosi Murray, ENGRAVER - 06/23/2024 3:00 PM EST Reason for [...] due to stenosis of middle cerebral artery (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) 02/05/2019 Cold intolerance 11/15/2023 Deficiency of [...] aura and without status migrainosus, not intractable ([facility]) 09/12/2017 Morbid obesity ([facility]/HCC) 11/15/2023 Muscle fasciculation 08/19/2021 Nasal polyps 11/15/2023 [...] (CMS/HCC) 08/01/2022 Pruritus, unspecified 01/02/2020 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[facility]/HCC) 06/12/2023 Raised antibody titer 09/25/2017 Right lower quadrant pain 11/15/2023 Right otitis externa 11/15/2023 Salivary gland swelling 11/15/2023 Single live 01/15/2020 Snoring 11/15/2023 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) 12/30/2019 Suspected severe acute respiratory syndrome coronavirus 2 (SARS-CoV-2) infection 06/12/2023 SVT (supraventricular tachycardia) ([facility]) 08/26/2019 Syncope and collapse 06/03/2018 Other bacterial infections of unspecified site 06/27/2019 Thrombocytopenia, unspecified ([facility]/HCC) 11/20/2019 Hypoglycemia 06/12/2023 Unspecified condition associated [...] Antiphospholipid syndrome (CMS/HCC) Gestational diabetes Heartburn Hypothyroid ([facility]/HCC) Stroke ([facility]/HCC) HISTORY PAST MEDICAL HISTORY SOCIAL HISTORY Past Medical History: Diagnosis Date AMA (advanced maternal age) multigravida 35+ Anemia Antiphospholipid syndrome (CMS/HCC) Gestational diabetes Heartburn Hypothyroid ([facility]/HCC) Stroke ([facility]/HCC) Social History Tobacco Use Smoking status: Never [...] drainage of cyst WISDOM TOOTH EXTRACTION 2007 [place] teeth REVIEW OF SYSTEMS Review of Systems: [...] nursing note reviewed. Exam conducted with a pulmonary function technologist present. Vitals: Estimated body mass index is [...] of: Wilton Herrmann DO documented in this encounterMadison Medical [id number] Hospital Discharge instructions Patient Education 06/09/2024 14:23:47 [...] Do not chew gum. General instructions Take nntb-fba-ygbsfjd and prescription medicines only as told by [...] important. Where to find more information National [place] of Dental and Craniofacial Research: www.nidcr.nih.gov Contact [...] provider. Document Revised: 11/27/2021 Document Reviewed: 11/27/2021 [employer] Patient Education 2023 [employer]. Follow Up Care 06/06/2024 11:26:13 With:PRAVEEN RESENDEZ FAAFP, CHRIS Perez, PED Address: [address] [place] [address] [facility] [place] [address]- When:Within 6 Month(s) [facility] 02-10-2025 NotePatient Education Orthopedics [...] not chew gum. General instructions ??? Take uiux-kuq-jcdkqjk and prescription medicines only as told by [...] Where to find more information ??? National [place] of Dental and Craniofacial Research: www.nidcr.nih.gov Contact [...] provider. Document Revised: 11/27/2021 Document Reviewed: 11/27/2021 [employer] Patient Education ? 2023 [employer].[facility] 06-02-2024 History of Present illness Narrative* [...] Antiphospholipid antibody positive 09/10/2017 Antiphospholipid antibody syndrome ([facility]/HCC) 07/07/2019 Anxiety 06/12/2023 Blood pressure elevated without history of HTN 11/15/2023 BMI 37.0-37.9, adult 11/15/2023 Cerebral infarction, unspecified ([facility]) 05/16/2019 Cerebrovascular accident (CVA) due to stenosis of middle cerebral artery (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) 09/12/2017 Morbid obesity ([facility]) 11/15/2023 Muscle fasciculation 08/19/2021 Nasal polyps [...] infections 01/16/2020 Pre-diabetes 11/15/2023 Primary hypercoagulable state ([facility]) 08/01/2022 Pruritus, unspecified 01/02/2020 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[facility]) 06/12/2023 Raised antibody titer 09/25/2017 Right lower quadrant pain 11/15/2023 Right otitis externa 11/15/2023 Salivary gland swelling 11/15/2023 Single live 01/15/2020 Snoring 11/15/2023 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) 12/30/2019 Suspected severe acute respiratory syndrome coronavirus 2 (SARS-CoV-2) infection 06/12/2023 SVT (supraventricular tachycardia) ([facility]) 08/26/2019 Syncope and collapse 06/03/2018 Other bacterial infections of unspecified site 06/27/2019 Thrombocytopenia, unspecified ([facility]) 11/20/2019 Hypoglycemia 06/12/2023 Unspecified condition associated with female genital organs and menstrual cycle 05/09/2019 Unspecified ovarian cyst, right side 02/06/2019 Urinary tract infection 10/16/2019 Referred otalgia of right ear 11/19/2023 LPRD (laryngopharyngeal reflux disease) 11/19/2023 Resolved Ambulatory Problems Diagnosis Date Noted No Resolved Ambulatory Problems Past Medical History: Diagnosis Date AMA (advanced maternal age) multigravida 35+ Anemia Antiphospholipid syndrome ([facility]) Gestational diabetes Heartburn Hypothyroid ([facility]) Stroke ([facility]) HISTORY PAST MEDICAL HISTORY SOCIAL HISTORY [...] drainage of cyst WISDOM TOOTH EXTRACTION 2007 [place] teeth REVIEW OF SYSTEMS Review of Systems: [...] nursing note reviewed. Exam conducted with a pulmonary function technologist present. Vitals: Estimated body mass index is [...] Patient had recent HCG level drawn at [facility] 05/31/2024 lab value was 6. Documented by Renate Vegas LPN on behalf of: Wilton Herrmann DO documented in this encounterMadison Medical [id number] Telephone encounter Note* Telephone Encounter - Taylor Escudero - 05/28/2024 1:45 PM EST Triage to call with iron results [facility]01-29-2025 Miscellaneous Notes* Telephone Encounter - Taylor Escudero - 05/28/2024 1:45 PM EST Triage to call with iron results documented in this encounterKettering [facility] Hospital01-29-2025 Instructions* Patient Instructions* Nathaly Florence - 05/28/2024 1:44 PM EST Triage to call iron results Continue Lovenox - patient prefers 40 mg (rather than rec 80mg) Encouraged her to reconsider Take B12 supplement in the form of a sublingual tablet RTC in 3 months Labs same day or 2-7 days prior documented in this encounterKettering [facility] Hospital01-29-2025 History of Present illness Narrative* Kristofer Calix MD - 05/28/2024 1:00 PM EST Images from the original note were not included. NAME: Sanna Rendon CLINIC NO.: [id number] DATE OF SERVICE: May 28, 2024 (Levon) [...] later in 2018. These were found in [place], [place]. I don't have access to these [...] target-like rash shortly before presenting to [facility] in 2016 with headaches and was [...] Monge soon. When she hada stroke in [place], she had symptoms up to a month before: uncontrollable headache, BP was elevated, knee stiffness, and blurry vision. Right facial drooping [facility] to [facility]. Updated [...] and stayed on Lovenox Hgb 13.1 @ [facility] Recommended ER if persisting bleeding but she [...] and at age 69. Both lived in [facility] but she was adopted. She was not able to see ID in October and will be seeing Dr. Baugh next week. Also will have her see Dr. Hamlin for her clotting disorder and make any other recommendations to optimize her treatment. Updated Visit, October 08, 2020: Telephone only Received call from pt stating she was seen in [facility] ER for numbness in her chest, throat, and extremities, and sob which has been worsening over the last week. We arranged a telephone visit for her chanw questions with me. Sanna Rendon is a 34 year old female seen for Hypercoagulable state and recent concerns and symptoms that required her to be seen at [facility] ER. She went to the ER with Gradual worsening of breathing after progressive tingling of fingers and legs. She currently remains very fatigued even though she is sleeping well. Now recalls that before her stroke she remembers having a bull's eye rash and was seen with severe headaches in [place], [place] - was found to have a [...] a root canal and was sent to [facility] for MRI which was negative but non-contrasted. [...] history goes back to January 2016 in [facility] where she had persisting headaches and slurred speech followed by lower extremity weakness. This took a few months to resolve and she is back to her normal state of being but some point in time during her her next she was seen by Dr. Humera Hyde in [place] as well and was found to have [...] which included preparing to see the patient, klfa-dd-zmod patient care, completing clinical documentation, performing a medically appropriate examination, counseling and educating the patient/family/caregiver, ordering medications, tests, or p rocedures, independently interpreting results (not separately reported), communicating results to the patient/family/caregiver, and care coordination (not separately reported). Kristofer Calix MD, CPE Hematology and Oncology Services Provided at: [facility], [place], [place] Scribe Attestation: This note was scribed [...] direction. CC: MD Chalino Dayy Spencer Herrmann, [address] [place] [address] Humaira Gaviria MD [address] [place] [id number] MD Cosmo Kingston MD Michael Blank, MD documented in this encounterKettering [facility] Hospital01-29-2025 NoteHNO ID: [id number] Author: KRISTOFER CALIX MD Service: ? Author Type: Physician Type: Progress Notes Filed: 05/29/2024 09:13 Note Text: NAME: Sanna Rendon [facility] NO.: [id number] DATE OF SERVICE: May 28, 2024 (Levon) [...] later in 2018. These were found in [place], [place]. I don't have access to these [...] target-like rash shortly before presenting to [facility] in 2016 with headaches and was [...] soon. When she had a stroke in [place], she had symptoms up to a month [...] breast feeding. Updated Visit, (more content not included)...[facility] 05-14-2024 Telephone encounter Note* Telephone Encounter - Rachael Johnson RN - 05/14/2024 10:15 AM EST Pt called to inform she had a miscarriage, Sunday (05/10/24) Asking if any additional blood work was needed from out standpoint. Pt aware we will be checking her CBC for any signs of anemia and her iron studies for deficiency. 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 She denies any further questions needs or concerns at this time. MARSHA Rushk: YANET [facility]01-15-2025 Miscellaneous Notes* Telephone Encounter - Rachael Johnson RN - 05/14/2024 10:15 AM EST Pt called to inform she had a miscarriage, Sunday (05/10/24) Asking if any additional blood work was needed from out standpoint. Pt aware we will be checking her CBC for any signs of anemia and her iron studies for deficiency. 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 She denies any further questions needs or concerns at this time. MARSHA Rush: YANET documented in this encounterKettering [facility] Hospital01-15-2025 Telephone encounter Note * Telephone Encounter [...] thinnersat follow up appointment. PVU--Rosi Presley LPN [facility] [id number] Miscellaneous Notes* Telephone Encounter - Rosi Murray [...] appointment. PVU--Rosi Presley LPN documented in this encounterMadison Medical [id number] History of Present illness Narrative* Pamela Walter [...] BMI 37.0-37.9, adult 11/15/2023 Cerebral infarction, unspecified ([facility]/HCC) 05/16/2019 Cerebrovascular accident (CVA) due to stenosis of middle cerebral artery (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) 09/12/2017 Morbid obesity (CMS/HCC) 11/15/2023 Muscle fasciculation [...] 2 (SARS-CoV-2) infection 06/12/2023 SVT (supraventricular tachycardia) ([facility]/HCC) 08/26/2019 Syncope and collapse 06/03/2018 Other bacterial infections of unspecified site 06/27/2019 Thrombocytopenia, unspecified ([facility]/HCC) 11/20/2019 Hypoglycemia 06/12/2023 Unspecified condition associated [...] drainage of cyst WISDOM TOOTH EXTRACTION 2007 [place] teeth REVIEW OF SYSTEMS Review of Systems: [...] nursing note reviewed. Exam conducted with a pulmonary function technologist present. Vitals: Estimated body mass index is [...] urinalysis dipstick manually resulted documented in this encounterMadison Medical [id number] History of Present illness Narrative* Ariane Joseph, [...] BMI 37.0-37.9, adult 11/15/2023 Cerebral infarction, unspecified ([facility]/HCC) 05/16/2019 Cerebrovascular accident (CVA) due to stenosis of middle cerebral artery (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) 09/12/2017 Morbid obesity ([facility]) 11/15/2023 Muscle fasciculation 08/19/2021 Nasal polyps [...] infections 01/16/2020 Pre-diabetes 11/15/2023 Primary hypercoagulable state ([facility]) 08/01/2022 Pruritus, unspecified 01/02/2020 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[facility]) 06/12/2023 Raised antibody titer 09/25/2017 Right lower quadrant pain 11/15/2023 Right otitis externa 11/15/2023 Salivary gland swelling 11/15/2023 Single live 01/15/2020 Snoring 11/15/2023 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) 12/30/2019 Suspected severe acute respiratory syndrome coronavirus 2 (SARS-CoV-2) infection 06/12/2023 SVT (supraventricular tachycardia) ([facility]) 08/26/2019 Syncope and collapse 06/03/2018 Other bacterial infections of unspecified site 06/27/2019 Thrombocytopenia, unspecified ([facility]/HCC) 11/20/2019 Hypoglycemia 06/12/2023 Unspecified condition associated with female genital organs and menstrual cycle 05/09/2019 Unspecified ovarian cyst, right side 02/06/2019 Urinary tract infection 10/16/2019 Referred otalgia of right ear 11/19/2023 LPRD (laryngopharyngeal reflux disease) 11/19/2023 Resolved Ambulatory Problems Diagnosis Date Noted No Resolved Ambulatory Problems Past Medical History: Diagnosis Date AMA (advanced maternal age) multigravida 35+ Anemia Antiphospholipid syndrome ([facility]) Gestational diabetes Heartburn Hypothyroid ([facility]) Stroke ([facility]) Family History Problem Relation Name Age [...] drainage of cyst WISDOM TOOTH EXTRACTION 2007 [place] teeth Allergies Allergen Reactions Ciprofloxacin GI intolerance [...] or undercooked meat, and [facility]. Patient has also been advised to [...] by: Ariane Joseph LPN documented in this encounterMadison Medical [id number] Telephone encounter Note* Telephone Encounter - Rachael Johnson RN - 02/28/2024 8:21 AM EDT Pt aware and agreeable to plan of care. Pt denies any further questions, needs or concerns at this time. Appt verified for lab/follow up Rachael Johnson RN [facility]10-31-2024 Miscellaneous Notes* Telephone Encounter - Rachael [...] advise Rachael Johnson RN documented in this encounterKettering [facility] Hospital10-30-2024 Telephone encounter Note * Telephone Encounter - Kristofer Calix MD - 02/27/2024 4:36 PM EDT She can take the iron with prenatals. We should Johnathon labs as scheduled. [facility]10-30-2024 Telephone encounter Note* Telephone Encounter - Rachael Johnson RN - 02/27/2024 9:41 AM EDT Pt 4 weeks and inquiring if she should have March's lab work completed now or wait until scheduled appt. Pt last labs completed 01/02/24. Pt also would like to know if it is okay to take with iron? Fely: Please advise Rachael Johnson RN [facility]10-08-2024 Hospital Discharge instructions Patient Education 02/05/2024 [...] condition. Follow these instructions at home: Take tjhi-wui-kbomanv and prescription medicines only as told by [...] and water are not available, use hand assistant store director. Avoid contact with people who have cold [...] it is easier to cough up. Take ywxb-dgt-voqftrq and prescription medicines only as told by [...] provider. Document Revised: 07/27/2022 Document Reviewed: 08/17/2021 [employer] Patient Education 2023 [employer]. Follow Up Care 02/04/2024 08:47:42 With:PRAVEEN RESENDEZ FAAFP, CHRIS Perez, PED Address: [address] [place], [place] [id number]- When:Within 3 Month(s) [facility] 10-08-2024 NotePatient Education Pulmonary [...] Follow these instructions at home: ? Take truf-sgy-mgsuxbd and prescription medicines only as told by [...] and water are not available, use hand assistant store director. ? Avoid contact with people who have [...] is easier to cough up. ? Take mhyr-ttf-jojpazr and (more content not included)...[facility]10-05-2024 Hospital Discharge instructions Follow Up Care 02/02/2024 11:19:56 With:Anni Bernstein MD, [facility], MED Address: [address] [place] [phone] When: only if needed [facility] 09-09-2024 Miscellaneous Notes* Telephone [...] FE results. Thank you documented in this encounterKettering Memorial Hospital09-09-2024 Telephone encounter Note * Telephone Encounter - Valeri Yeung RN - 01/07/2024 8:29 AM EDT No need for IV iron per CC'd chart from Dr. Calix. Attempt to call pt to notify. Left detailed message on, along with call back number on voicemail. Valeri Yeung RN [facility]09-04-2024 Telephone encounter Note* Telephone Encounter - Marleen Mcdonald - 01/02/2024 2:[address] Luna is requesting Triage to call Sanna with her FE results. Thank you [facility]09-04-2024 Instructions* Patient Instructions* Nathaly Florence - 01/02/2024 2:08 PM EDT Triage to call iron results Continue Lovenox - patient prefers 40 mg (rather than rec 80mg) Encouraged her to reconsider Take B12 supplement in the form of a sublingual tablet RTC in 3 months Labs same day Vitamin D, TSH, Calcium with CMP documented in this encounterK[facility] Nurse Note* Serina Horton MA - [...] MRI but was negative. Serina Dawson MA [facility]09-04-2024 Nurse Note* Serina Dawson MA - [...] negative. Serina Dawson MA documented in this encounterKettering [facility] Hospital09-04-2024 History of Present illness Narrative* Kristofer Calix MD - 01/02/2024 1:45 PM EDT Images from the original note were not included. NAME: Sanna Rendon CLINIC NO.: [id number] DATE OF SERVICE: January 02, 2024 (Levon) [...] later in 2018. These were found in [place], [place]. I don't have access to these [...] target-like rash shortly before presenting to [facility] in 2016 with headaches and was [...] Monge soon. When [place] hada stroke in [place], she had symptoms up to a month before: uncontrollable headache, BP was elevated, knee stiffness, and blurry vision. Right facial drooping [facility] to [facility]. Updated [...] and stayed on Lovenox Hgb 13.1 @ [facility] Recommended ER if persisting bleeding but she [...] and at age 69. Both lived in [facility] but she was adopted. She was not able to see ID in October and will be seeing Dr. Baugh next week. Also will have her see Dr. Hamlin for her clotting disorder and make any other recommendations to optimize her treatment. Updated Visit, October 08, 2020: Telephone only Received call from pt stating she was seen in [facility] ER for numbness in her chest, throat, and extremities, and sob which has been worsening over the last week. We arranged a telephone visit for her chanw questions with me. Sanna Rendon is a 34 year old female seen for Hypercoagulable state and recent concerns and symptoms that required her to be seen at [facility] ER. She went to the ER with Gradual worsening of breathing after progressive tingling of fingers and legs. She currently remains very fatigued even though she is sleeping well. Now recalls that before her stroke she remembers having a bull's eye rash and was seen with severe headaches in [facility] was found to have a stroke [...] a root canal and was sent to [facility] for MRI which was negative but non-contrasted. [...] history goes back to January 2016 in [facility] where she had persisting headaches and slurred speech followed by lower extremity weakness. This took a few months to resolve and she is back to her normal state of being but some point in time during her her next she was seen by Dr. Humera Hyde in [place] as well and was found to have [...] which included preparing to see the patient, thuw-xh-axst patient care, completing clinical documentation, performing a medically appropriate examination, counseling and educating the patient/family/caregiver, ordering medications, tests, or p rocedures, independently interpreting results (not separately reported), communicating results to the patient/family/caregiver, and care coordination (not separately reported). Kristofer Calix MD, CPE Hematology [facility] Oncology Services Provided at: [place], [place] Scribe Attestation: This note was scribed [...] under my direction. CC: MD Wilton Day, [address] [place] [address] Humaira Gaviria MD [address] [place] [id number] MD Cosmo Kingston MD Michael Blank, MD documented in this encounterKet[facility]08-[facility]24 Telephone encounter Note * Telephone Encounter - Rachael Johnson RN - 12/17/2023 12:57 PM EDT Pt updated and will follow up with PCP. Denies further questions, needs or concerns at this time for our provider. Rachael Johnson RN [facility]08-19-2024 Miscellaneous Notes* Telephone Encounter - Rachael [...] to IV Iron 11/29/23? documented in this encounterKettering [facility] Hospital08-19-2024 Telephone encounter Note * Telephone Encounter - Kristofer Calix MD - 12/17/2023 12:52 PM EDT No - sounds like she has some infectious process going on - would rec PCP. [facility]08-19-[facility]24 Telephone encounter Note* Telephone Encounter - [...] possible delayed reaction to IV Iron 11/29/23? [facility]08-01-2024 History of Present illness Narrative* Becki Gutierrez RN - 11/29/2023 2:01 PM EDT Y Y documented in this encounterKet[facility] Hospital08-01-2024 Telephone encounter Note * Telephone Encounter - Rachael Johnson RN - 11/29/2023 12:45 PM EDT MARSHA Connell, treatment aware of changes. [facility]08-01-2024 Miscellaneous Notes* Telephone Encounter - Rachael [...] Calix MD - 11/29/2023 10:02 AM EDT Perry Isidro - sometimes it depends on [...] a different iron formulation. documented in this encounterKettering [facility] Hospital08-01-2024 Telephone encounter Note * Telephone Encounter - Rachael Johnson RN - 11/29/2023 12:41 PM EDT Spoke with pt. She will obtain Pepcid OTC from our retail pharmacy on arrival to take (1) 20 mg tablet. She is aware and agreeable to IV steroid for infusion as well. Rachael Johnson RN [facility]08-01-2024 Telephone encounter Note* Telephone Encounter - Raissa Aly RPh - 11/29/2023 12:40 PM EDT A one time dose of dexamethasone is safe when . I added 8mg to the plan for your review. Please adjust dose if necessary. Thanks, Raissa Aly RPh [facility] Work Phone: [phone] Telephone encounter Note* Telephone Encounter - Raissa Aly RPh - 11/29/2023 12:34 PM EDT Famotidine is safe when . Do we want to administer the venofer slower? What rate? Raissa Sofia RPh [facility]08-01-2024 Telephone encounter Note* Telephone Encounter - Rachael Johnson RN - 11/29/2023 11:56 AM EDT Called and discussed with pt. She is and cannot take Benadryl. She is reluctant to take Pepcid. Attempted to call retail, infusion pharmacy and [facility], no answer, to ask safety of pepcid in . Pharm/Fely: please advise Rachael Johnson RN [facility]08-01-2024 Telephone encounter Note* Telephone Encounter - Kristofer Calix MD - 11/29/2023 10:02 AM EDT Perry Isidro - sometimes it depends on [...] have to choose a different iron formulation. [facility]07-18-2024 History of Present illness Narrative* Alison Linares RN - 11/15/2023 1:42 PM EDT Pt reports having nausea and lightheadedness this morning. She has seen her pcp regarding these symptoms and is being worked up to figure out the cause. documented in this encounterKettering [facility] Hospital07-18-2024 Telephone encounter Note * Telephone Encounter - Evelyn Sanabria - 11/15/2023 9:19 AM EDT 1st report of treatment-Non oncology regimen (Venofer) Patient holds Medicaid coverage and there isno available FA at this time. [facility]07-18-2024 Miscellaneous Notes* Telephone Encounter - Domo CatEvelyn Radha - 11/15/2023 9:19 AM EDT 1st report of treatment-Non oncology regimen (Venofer) Patient holds Medicaid coverage and there isno available FA at this time. documented in this encounterKet[facility] Hospital07-12-2024 Hospital Discharge instructions Patient Education 11/09/2023 [...] your hypoglycemia. Where to find more information Australian Diabetes Association: www.diabetes.org National [place] of Diabetes and Digestive and Kidney Diseases: [...] provider. Document Revised: 03/17/2021 Document Reviewed: 03/17/2021 [employer] Patient Education 2022 [employer]. 11/09/2023 15:56:06 Prediabetes Prediabetes Prediabetes is when [...] hard liquor (44 mL). General instructions Take dxlm-mcf-nmnxpci and prescription medicines only as told by [...] is important. Where to find more information Australian Diabetes Association: www.diabetes.org Academy of Nutrition and Dietetics: www.eatright.org Australian Heart Association: www.heart.org Contact a health care [...] provider. Document Revised: 07/15/2020 Document Reviewed: 07/15/2020 [employer] Patient Education 2022 [employer]. 11/09/2023 15:56:02 Palpitations Palpitations Palpitations are feelings [...] ask your health careprovider. General instructions Take hffy-goo-koqrxll and prescription medicines only as told by [...] provider. Document Revised: 09/07/2021 Document Reviewed: 09/07/2021 [employer]l Patient Education 2022 [employer]. 11/09/2023 15:55:58 Fatigue Fatigue If you have [...] Follow these instructions at home: Medicines Take aadc-teu-mfrgpsq and prescription medicines only as told by [...] the National Suicide Prevention Lifeline at or 481. This is open 24 hours a day. Text the Crisis Text Line at 277186. Summary If you have fatigue, you feel [...] provider. Document Revised: 02/06/2022 Document Reviewed: 02/06/2022 [employer]l Patient Education 2022 [employer]. Follow Up Care 11/08/2023 11:31:43 With:PRAVEEN RESENDEZ FAAFP, Penelope Tony, CHRIS, PED Address: [address], [facility] [place] [address]- When: Unknown [facility] 07-12-2024 NotePatient Education Emergency [...] health care provider. General instructions ? Take jnrc-sfr-rrbjjvd and prescription medicines only as told by [...] provider. Document Revised: 09/07/2021 Document Reviewed: 09/07/2021 ElseGet[employer]App Patient Education ? 2022 [employer]. Endocrinology Preventing Hypoglycemia Hypoglycemia occurs when the [...] hypoglycemia may not (more content not included)...[facility]07-12[facility]24 History of Present illness Narrative* Tamiko Krueger LSW - 11/09/2023 9:27 AM EDT Patient appears on the [facility] First Time Treatment List for a non-oncology treatment. No psychosocial assessment is indicated. TIM Huerta-Jaylan documented in this encounterKettering [facility] Hospital07-09-2024 Telephone encounter Note * Telephone Encounter [...] dizziness, etc. Appointments verified. Rachael Johnson RN [facility]07-09-2024 Miscellaneous Notes* Telephone Encounter - Rachael [...] will get you feeling better. Best, Dr. V. * Telephone Encounter - Roberta Haskins - [...] MD Sent: 11/05/2023 11:33 AM EDT To: [facility] Triage Pool; [facility] Clerical Pool Perry Sanna - looks like you need Iron again. Dr. Middleton Cancel her virtual set for 11/05 and 11/19 - infuse 3 doses weekly iron and then see her in 8 weeks inperson - labs same day. Thanks! documented in this encounterKettering [facility] Hospital07-08-2024 Telephone encounter Note * Telephone Encounter [...] get you feeling better. Sumit, Dr. Middleton [facility]07-08-2024 Telephone encounter Note* Telephone Encounter - [...] is on a blood thinner. Roberta Haskins [facility]07-08-2024 Telephone encounter Note* Telephone Encounter - Roberta Haskins - 11/05/2023 12:47 PM EDT Appointment tomorrow cancelled. Andres tried calling her this morning and was unable to get a hold ofher. Will keep trying patient to schedule for Iron. Roberta Haskins [facility]07-08-2024 Telephone encounter Note* Telephone Encounter - JocelynelesterRoberta - 11/05/2023 12:47 PM EDT ----- Message from Rachael Johnson RN sent at 11/05/2023 11:53 AM EDT ----- ----- Message ----- From: Kristofer Calix MD Sent: 11/05/2023 11:33 AM EDT To: [facility] Triage Pool; [facility] Clerical Pool Perry Isidro - looks like you need Iron again. Dr. Middleton Cancel her virtual set for 11/05 and 11/19 - infuse 3 doses weekly iron and then see her in 8 weeks inperson - labs same day. Thanks! [facility]06-25[facility]24 Hospital Discharge instructions Patient Education 10/23/2023 [...] specializes in ear, nose, and throat disorders (hand engraver, or ENT) for more tests and treatment. [...] (rhinoplasty). Follow these instructions at home: Take wibs-puu-rtorics and prescription medicines only as told by [...] specializes in ear, nose, and throat disorders (hand engraver, or ENT) for more tests and treatment. This information is not intended to replace advice given to you by your health care provider. Make sure you discuss any questions you have with your health care provider. Document Revised: 12/12/2021 Document Reviewed: 12/12/2021 [employer] Patient Education 2022 [employer]. 10/23/2023 17:12:52 Nasal Polyps Nasal Polyps Nasal [...] instructions at home: Medicines Take or use htpf-moh-dauctkv and prescription medicines only as told by [...] provider. Document Revised: 04/05/2022 Document Reviewed: 04/05/2022 [employer]oodl Patient Education 2022 [employer]. 10/23/2023 17:12:52 Nasal Polypectomy Nasal Polypectomy Nasal [...] including vitamins, herbs, eye drops, creams, and pkwr-fae-oezgnot medicines. Any problems you or family members [...] provider tells you to take them. Taking pvou-dic-fgbqnch medicines, vitamins, herbs, and supplements. General instructions [...] provider. Document Revised: 04/05/2022 Document Reviewed: 04/05/2022 [employer]l Patient Education 2022 [employer] Inc. 10/23/2023 17:12:46 BMI for Adults BMI [...] numbers. This can be done either in [place] ([place].S[place] or metric measurements. Note that charts and online BMI calculators are available to help you find your BMI quickly and easily without having to do these calculations yourself. To calculate your BMI in [place] ([place].S[place] measurements: 1.Measure your weight in pounds [...] Centers for Disease Control and Prevention: www.cdc.gov Australian Heart Association: www.heart.org National Heart, Lung, and Blood [place]: www.nhlbi.nih.gov Summary Body mass index (BMI) is a number that is calculated from a person's weight and height. BMI may help estimate how much of a person's weight is composed of fat. BMI can help identify thosewho may be at higher risk for certain medical problems. BMI can be measured using [place] measurements or metric measurements. BMI charts are used to identify whether you are underweight, normal weight, overweight, or obese. This information is not intended to replace advice given to you by your health care provider. Make sure you discuss any questions you have with your health care provider. Document Revised: 01/07/2020 Document Reviewed: 11/14/2019 [employer]l Patient Education 2022 [employer]. Follow Up Care 10/23/2023 08:49:41 With:Lourdes Urrutia Address: [address] [place] [address], [address] [place] [id number]- When: only if needed [facility] 05-31-2024 Hospital Discharge instructions [...] Follow these instructions at home: Medicines Take pvge-dlm-pkgxylm and prescription medicines only as told by [...] Watch your condition for any changes. Take upjf-scq-byxhmot and prescription medicines only as told by [...] 06/04/2020 Document Reviewed: 08/25/2019 Elsevier Patient Education 2023 [employer] Follow Up Care 09/28/2023 18:22:59 With:Penelope CASAS Address: [address], [place] [address] Business (1) When:Within 3 Day(s) [facility]05-31-2024 Hospital Discharge instructions Patient Education 09/28/2023 [...] numbers. This can be done either in [place] (U.S.) or metric measurements. Note that charts and online BMI calculators are available to help you find your BMI quickly and easily without having to do these calculations yourself. To calculate your BMI in [place] ([place].S[place] measurements: 1.Measure your weight in pounds [...] Centers for Disease Control and Prevention: www.cdc.gov Australian Heart Association: www.heart.org National Heart, Lung, and Blood [place]: www.nhlbi.nih.gov Summary Body mass index (BMI) is a number that is calculated from a person's weight and height. BMI may help estimate how much of a person's weight is composed of fat. BMI can help identify thosewho may be at higher risk for certain medical problems. BMI can be measured using [place] measurements or metric measurements. BMI charts are used to identify whether you are underweight, normal weight, overweight, or obese. This information is not intended to replace advice given to you by your health care provider. Make sure you discuss any questions you have with your health care provider. Document Revised: 01/07/2020 Document Reviewed: 11/14/2019 Booodl Patient Education 2022 [employer]. 09/28/2023 18:24:42 Hypertension, Adult, Laxa-rf-Oesl Hypertension, Adult Hypertension is another name for [...] doctor. Keep all follow-up visits. Medicines Take eaej-xkq-thhbade and prescription medicines only as told by [...] provider. Document Revised: 02/02/2022 Document Reviewed: 02/02/2022 [employer]oodl Patient Education 2022 [employer]. 09/28/2023 18:24:32 Abdominal Pain, Adult, Ctjo-aj-Gypa Abdominal Pain, Adult Many things can cause belly (abdominal) pain. Most times, belly pain is not dangerous. Many cases of belly pain can be watched and treated at home. Sometimes, though, belly pain is serious. Your doctor will try to find the cause of your belly pain. Follow these instructions at home: Medicines Take xios-xoq-afwcund and prescription medicines only as told by [...] your belly pain for any changes. Take lhvr-oms-oolhdng and prescription medicines only as told by [...] provider. Document Revised: 08/25/2019 Document Reviewed: 08/25/2019 [employer]oodl Patient Education 2022 [employer]. Follow Up Care 09/28/2023 16:11:11 With:Emergency room Address: When: only if needed Comments:Patient was instructed to contact emergency room for any worsening abdominal pain, concerns, or complications. [facility] 05-31-2024 Evaluation + Plan noteExtracted [...] Scheduled Tests Laboratory* HgbA1c 08/03/23 [facility]05-30-2024 Telephone encounter Note* Telephone Encounter - Divine Roberta - 09/27/2023 4:38 PM EDT Attempt has been made x2 to reschedule patient. She did not have labs drawn. Roberta Jocelynelester [facility]05-30-2024 Miscellaneous Notes* Telephone Encounter - Krystal Haskinstany - 09/27/2023 4:38 PM EDT Attempt has been made x2 to reschedule patient. She did not have labs drawn. Roberta Jocelynelester documented in this encounterKettering [facility] Hospital05-29-2024 History of Present illness Narrative* Kristofer Calix MD - 09/26/2023 9:11 AM EDT Did not have labs done to prep for this visit - reschedule. Kristofer Calix MD documented in this encounterKettering [facility] Hospital04-05-2024 Hospital Discharge instructions Patient Education 08/03/2023 [...] your health care provider or diet and food and nutrition supervisor (dietitian). This may include: ?Eating fewer calories. [...] provider. Document Revised: 06/12/2021 Document Reviewed: 06/12/2021 Booodl Patient Education 2022 [employer]. Follow Up Care 02/15/2023 10:07:52 With:PRAVEEN RESENDEZ FAAFP, CHRIS Perez, PED Address: [address], [facility] [place] [address]- When:Within 4 Month(s) [facility] 04-05-2024 Evaluation + Plan note Future Scheduled Tests Laboratory* HgbA1c 08/03/23 Radiology* CT Soft Tissue Neck w/ Contrast 11/12/23 [facility] 02-22-2024 Hospital Discharge instructions [...] or if there is an kennedy for [employer]. Most glucose meters store a record of [...] mayhave. Where to find more information The Australian Diabetes Association: www.diabetes.org The Association of Diabetes [...] provider. Document Revised: 01/12/2021 Document Reviewed: 01/12/2021 Booodl Patient Education 2022 [employer]. 06/21/2023 06:07:34 Preventing Iron Deficiency Anemia, Adult [...] iron. Foods high in vitamin C include: ?[place] fruits, such as tai, oranges, and grapefruits. [...] iron supplement is right for you. Take ydjs-uxo-pvyhlxz and prescription medicines only as told by your health care provider. Keep all follow-up visits. Where to find more information Learn more about preventing iron deficiency from: National Heart, Lung, and Blood [place]: www.nhlbi.nih.gov Australian Society of Hematology: www.hematology.org Contact a health [...] provider. Document Revised: 05/24/2022 Document Reviewed: 05/24/2022 [employer]oodl Patient Education 2022 [employer]. 06/21/2023 06:07:28 BMI for Adults BMI for [...] numbers. This can be done either in [place] ([place].S[place] or metric measurements. Note that charts and online BMI calculators are available to help you find your BMI quickly and easily without having to do these calculations yourself. To calculate your BMI in [place] ([place] measurements: 1.Measure your weight in pounds [...] Centers for Disease Control and Prevention: www.cdc.gov Australian Heart Association: www.heart.org National Heart, Lung, and Blood [place]: www.nhlbi.nih.gov Summary Body mass index (BMI) is a number that is calculated from a person's weight and height. BMI may help estimate how much of a person's weight is composed of fat. BMI can help identify thosewho may be at higher risk for certain medical problems. BMI can be measured using [place] measurements or metric measurements. BMI charts are used to identify whether you are underweight, normal weight, overweight, or obese. This information is not intended to replace advice given to you by your health care provider. Make sure you discuss any questions you have with your health care provider. Document Revised: 01/07/2020 Document Reviewed: 11/14/2019 [employer]l Patient Education 2022 [employer]. Follow Up Care 06/19/2023 13:39:56 With:PRAVEEN RESENDEZ FAAFP, Penelope Tony, CHRIS, PED Address: [address], [facility] [place] [address]- When: Unknown [facility] 02-20-2024 Miscellaneous Notes* Telephone Encounter - Rachael Johnson RN - 06/19/2023 1:05 PM EST Pt called back and aware of Fely's message. She is agreeable to POC and denies further needs at thistime. She will call PCP to follow up on TSH Rachael Johnson RN * Telephone Encounter - Rachael Johnson RN - 06/19/2023 12:26 PM EST Telogis message sent Rachael Johnson RN * Telephone [...] lab results Roberta Haskins documented in this encounterKet[facility] Hospital02-16-2024 Instructions* Patient Instructions* Nathaly Carney - [...] TSH, Calcium with CMP documented in this encounterKettering [facility] Hospital02-16-2024 Nurse Note* Serina Horton MA - [...] exercise. Serina Dawson MA documented in this encounterKettering [facility] Hospital02-16-2024 History of Present illness Narrative* Kristofer Calix MD - 06/15/2023 2:00 PM EST Images from the original note were not included. NAME: Sanna Rendon CLINIC NO.: [id number] DATE OF SERVICE: June 15, 2023 (Levon) [...] later in 2018. These were found in [place], [place]. I don't have access to these [...] target-like rash shortly before presenting to [facility] in 2015 with headaches and was [...] Monge soon. When she hada stoke in [place], she had symptoms up to a month [...] and stayed on Lovenox Hgb 13.1 @ [facility] Recommended ER if persisting bleeding but she [...] and at age 69. Both lived in [facility] but she was adopted. She was not able to see ID in October and will be seeing Dr. Baugh next week. Also will have her see Dr. Hamlin for her clotting disorder and make any other recommendations to optimize her treatment. Updated Visit, October 08, 2020: Telephone only Received call from pt stating she was seen in [facility] ER for numbness in her chest, throat, and extremities, and sob which has been worsening over the last week. We arranged a telephone visit for her toreview questions with me. Sanna Rendon is a 34 year old female seen for Hypercoagulable state and recent concerns and symptoms that required her to be seen at [facility] ER. She went to the ER with Gradual worsening of breathing after progressive tingling of fingers and legs. She currently remains very fatigued even though she is sleeping well. Now recalls that before her stroke she remembers having a bull's eye rash and was seen with severe headaches in [place], [place] - was found to have a [...] a root canal and was sent to [facility] for MRI which was negative but non-contrasted. [...] history goes back to January 2016 in [facility] where she had persisting headaches and slurred speech followed by lower extremity weakness. This took a few months to resolve and she is back to her normal state of being but some point in time during her her next she was seen by Dr. Humera Hyde in [place] as well and was found to have [...] which included preparing to see the patient, lvar-ho-fiqe patient care, completing clinical documentation, performing a medically appropriate examination, counseling and educating the patient/family/caregiver, ordering medications, tests, or p rocedures, independently interpreting results (not separately reported), communicating results to the patient/family/caregiver, and care coordination (not separately reported). Kristofer Calix MD, CPE Hematology and Oncology Services Provided at: [facility], [place], [place] Scribe Attestation: This note was scribed [...] under my direction. CC: MD Wilton Day, [address] [place] [address] Humaira Gaviria MD [address] [place] [address] [place] [address] MD Cosmo Kingston MD Michael Blank, MD documented in this encounterKettering [facility] Hospital02-12-2024 Miscellaneous Notes* Telephone Encounter - Ebony Redding Ma - 06/11/2023 10:43 AM EST Labs for appointment on 06/15. Ebony Redding Ma documented in this encounterKettering [facility] Hospital02-12-2024 Miscellaneous Notes* Telephone Encounter - Nicol Avila - 06/11/2023 9:[address] Monge office spoke with Brinda. Patient is scheduled to see Dr Monge on 06/20. Nicol Harrison Pss * Telephone Encounter - Nicol Avila - [...] see Dr. Crow Monge / Neurology / [place] Dx: vision changes and numbness of face. Pt states that it has been a few years since she was last seen by him. [facility] Neurology [address] [facility], [place] Bhavna, Please fax records Andres, Please follow up on this appt. Thank you documented in this encounterKettering Memorial Hospital02-01-2024 History of Present illness Narrative* Kristofer Calix MD - 05/31/2023 4:30 PM EST Images from the original note were not included. NAME: Sanna Rendon CLINIC NO.: [id number] DATE OF SERVICE: May 31, 2023 (Levon) Some elements in this clinic note that are critical to medical decision making have been carefully reviewed and included from a prior clinic note dated: March 19, 2023 (Levon) Additional Clinicians involved in Sanna Rendon's care: Drs. Herrmann, Jorge Monge, Humaira Gaviria, VIRTUAL VISIT PROGRESS NOTE This is a virtual visit using MyChart Zoom Video Visit. It required patient- provider interaction for the medical decision making as documented below. I have communicated my name and active licensure. The patient's identity and physical location wereverified at the time of this visit. Either the patient or their legal advertising account representative has been informed of the risks and benefits of -- and alternatives to -- treatment through a remote evaluation andconsents to proceed with the evaluation remotely. CC: hypercoag state. ASSESSMENT: 37 year old woman 25 weeks presents with a prior history of CVA in 2016 and anantiphospholipid antibody that was identified much later in 2018. These were found in [place], [place]. I don't have access to these [...] target-like rash shortly before presenting to [facility] in 2016 with headaches and was [...] and stayed on Lovenox Hgb 13.1 @ [facility] Recommended ER if persisting bleeding but she [...] and at age 69. Both lived in [place], [place] - but she was adopted. She was not able to see ID in October and will be seeing Dr. Baugh next week. Also will have her see Dr. Hamlin for her clotting disorder and make any other recommendations to optimize her treatment. Updated Visit, October 08, 2020: Telephone only Received call from pt stating she was seen in [facility] for numbness in her chest, throat, and extremities, and sob which has been worsening over the last week. We arranged a telephone visit for her chanw questions with me. Sanna Rendon is a 34 year old female seen for Hypercoagulable state and recent concerns and symptoms that required her to be seen at [facility]. She went to the ER with Gradual worsening of breathing after progressive tingling of fingers and legs. She currently remains very fatigued even though she is sleeping well. Now recalls that before her stroke she remembers having a bull's eye rash and was seen with severe headaches in [place], [place] - was found to have a [...] a root canal and was sent to [facility] for MRI which was negative but non-contrasted. [...] history goes back to January 2016 in [facility] where she had persisting headaches and slurred speech followed by lower extremity weakness. This took a few months to resolve and she is back to her normal state of being but some point in time during her her next she was seen by Dr. Humera Hyde in [place] as well and was found to have [...] CPE Hematology and Oncology Services Provided at: [place], [place] CC: MD Wilton Day, [address] [place] [address] Humaira Gaviria MD [address] [place] [id number] MD Cosmo Kingston MD Michael Blank, MD documented in this encounterKettering Memorial Hospital02-01-2024 Instructions* Patient Instructions* Kristofer Calix MD [...] TSH, Calcium with CMP documented in this encounterKettering Memorial Hospital01-26-2024 Hospital Discharge instructions Patient Education 05/25/2023 [...] your ears completely after. General instructions Take alsp-wzw-tqkrsap and prescription medicines only as told by [...] provider. Document Revised: 06/27/2021 Document Reviewed: 06/27/2021 [employer] Patient Education 2022 [employer]. 05/25/2023 12:02:06 Dyshidrotic Eczema Dyshidrotic Eczema Dyshidrotic [...] care provider who specializes in skin conditions (sales service executive) tohelp diagnose and treat this condition. How [...] locks in moisture. Medicines Take and apply zdnu-ukg-sdvbcuy and prescription medicines only as told by [...] provider. Document Revised: 01/24/2021 Document Reviewed: 01/24/2021 [employer] Patient Education 2022 [employer]. 05/25/2023 12:02:02 Allergies, Adult, Jltn-at-Oplq Allergies, Adult An allergy means that your [...] instructions at home: Medicines Take or apply nwvr-msx-nriupnd and prescription medicines only as told by [...] to the hospital. Summary Take or apply gmlz-fiq-vlbijzt and prescription medicines only as told by [...] provider. Document Revised: 02/25/2020 Document Reviewed: 02/25/2020 [employer] Patient Education 2022 [employer]. Follow Up Care 05/21/2023 12:21:27 With:PRAVEEN RESENDEZ FAAFP, CHRIS Perez, PED Address: [place] [address]- When:Within 2 Month(s) [facility] 11-20-2023 History of Present illness Narrative* Kristofer Calix MD - 03/19/2023 4:45 PM EST Images from the original note were not included. NAME: Sanna Rendon CLINIC NO.: [id number] DATE OF SERVICE: March 19, 2023 (Levon) [...] visit. Either the patient or their legal advertising account representative has been informed of the risks and benefits of -- and alternatives to -- treatment through a remote evaluation andconsents to proceed with the evaluation remotely. CC: hypercoag state. ASSESSMENT: 37 year old woman 25 weeks presents with a prior history of CVA in 2016 and anantiphospholipid antibody that was identified much later in 2018. These were found in [place], [place]. I don't have access to these [...] target-like rash shortly before presenting to [facility] in 2016 with headaches and was [...] and stayed on Lovenox Hgb 13.1 @ [facility] Recommended ER if persisting bleeding but she [...] and at age 69. Both lived in [facility] but she was adopted. She was not able to see ID in October and will be seeing Dr. Baugh next week. Also will have her see Dr. Hamlin for her clotting disorder and make any other recommendations to optimize her treatment. Updated Visit, October 08, 2020: Telephone only Received call from pt stating she was seen in [facility] for numbness in her chest, throat, and extremities, and sob which has been worsening over the last week. We arranged a telephone visit for her domingoevvenicew questions with me. Sanna Rendon is a 34 year old female seen for Hypercoagulable state and recent concerns and symptoms that required her to be seen at [facility]. She went to the ER with Gradual worsening of breathing after progressive tingling of fingers and legs. She currently remains very fatigued even though she is sleeping well. Now recalls that before her stroke she remembers having a bull's eye rash and was seen with severe headaches in [facility] was found to have a stroke [...] a root canal and was sent to [facility] for MRI which was negative but non-contrasted. [...] history goes back to January 2016 in [facility] where she had persisting headaches and slurred speech followed by lower extremity weakness. This took a few months to resolve and she is back to her normal state of being but some point in time during her her next she was seen by Dr. Humera Hyde in [place] as well and was found to have [...] CPE Hematology and Oncology Services Provided at: [place], [place] CC: MD Chalino Dayy Spencer Herrmann, [address] [place] [address] Humaira Gaviria MD [address] [place] [id number] MD Cosmo Kingston MD Michael Blank, MD documented in this encounterKettering [facility] Hospital11-20-2023 Instructions* Patient Instructions* Kristofer Calix MD - 03/19/2023 4:44 PM EST Continue Lovenox - patient prefers 40 mg (rather than rec 80mg) Take B12 supplement in the form of a sublingual tablet. Take Vitamin D3 5000 international unit(s) daily Check labs in 8 weeks Phone / Virtual call after documented in this encounterKettering Memorial Hospital10-19-2023 Hospital Discharge instructions Patient Education 02/15/2023 10:13:08 Ear Drops, Adult, Kzpq-yw-Ovtx Ear Drops, Adult Your doctor has found [...] cannot use soap and water, use hand assistant store director. 2.Make sure your ears are clean and [...] you cannot use soapand water, use hand assistant store director. Follow these instructions at home: Use the [...] provider. Document Revised: 02/11/2020 Document Reviewed: 02/11/2020 [employer] Patient Education 2022 [employer]ar. 02/15/2023 10:13:05 Otitis Externa, Uvuj-pt-Ffwk Otitis Externa Otitis externa is an infection [...] if you start to feel better. Take mqjf-qbt-wrakieu and prescription medicines only as told by [...] provider. Document Revised: 06/29/2021 Document Reviewed: 06/29/2021 [employer]Get[employer] Patient Education 2022 [employer]estar. Follow Up Care 02/14/2023 12:28:12 With:PRAVEEN RESENDEZ FAAFP, Penelope Tony, CHRIS, PED Address: [place], [facility] [place] [address]- When:Within 2 Month(s) [facility] 08-25-2023 Hospital Discharge instructions [...] including vitamins, herbs, eye drops, creams, and tddp-jwa-kokfavx medicines. ?Whether you are or may be [...] provider. Document Revised: 12/28/2021 Document Reviewed: 11/19/2020 [employer] Patient Education 2022 [employer]estar. 12/22/2022 15:19:23 Fatigue Fatigue If you have [...] Follow these instructions at home: Medicines Take ybvn-ogl-rgrlbrz and prescription medicines only as told by [...] the National Suicide Prevention Lifeline at or 877. This is open 24 hours a day. Text the Crisis Text Line at 877907. Summary If you have fatigue, you feel [...] provider. Document Revised: 02/06/2022 Document Reviewed: 02/06/2022 [employer] Patient Education 2022 [employer]ar. Follow Up Care 12/22/2022 10:22:02 With:Shirlene YEBOAH, Lourdes Baltazar Address: [address] [facility] [address], [place] [address]- When: only if needed [facility] 08-25-2023 Instructions* Patient Instructions* Kristofer Calix MD - 12/22/2022 10:13 AM EDT Continue Lovenox - patient prefers 40 mg (rather than rec 80mg) Take B12 supplement in the form of a sublingual tablet. Take Vitamin D3 5000 international unit(s) daily Check labs in 8 weeks Phone / Virtual call after documented in this encounterKettering Memorial Hospital08-25-2023 History of Present illness Narrative* Kristofer Calix MD - 12/22/2022 9:55 AM EDT Images from the original note were not included. Kristofer Calix MD NAME: Sanna Rendon CLINIC NO.: [id number] DATE OF SERVICE: December 22, 2022 (Levon) [...] visit. Either the patient or their legal advertising account representative has been informed of the risks and benefits of -- and alternatives to -- treatment through a remote evaluation andconsents to proceed with the evaluation remotely. CC: hypercoag state. ASSESSMENT: 37 year old woman with a prior history of CVA in 2016 and an antiphospholipid antibody that was identified much later in 2018. These were found in [place], [place]. I don't have access to these [...] target-like rash shortly before presenting to [facility] in 2016 with headaches and was [...] and stayed on Lovenox Hgb 13.1 @ [facility] Recommended ER if persisting bleeding but she [...] anticoagulation during because of her previous stroke, taurus she is also on aspirin I would [...] and at age 69. Both lived in [facility] but she was adopted. She was not able to see ID in October and will be seeing Dr. Baugh next week. Also will have her see Dr. Hamlin for her clotting disorder and make any other recommendations to optimize her treatment. Updated Visit, October 08, 2020: Telephone only Received call from pt stating she was seen in [facility] for numbness in her chest, throat, and extremities, and sob which has been worsening over the last week. We arranged a telephone visit for her toreview questions with me. Sanna Rendon is a 34 year old female seen for Hypercoagulable state and recent concerns and symptoms that required her to be seen at [facility]. She went to the ER with Gradual worsening of breathing after progressive tingling of fingers and legs. She currently remains very fatigued even though she is sleeping well. Now recalls that before her stroke she remembers having a bull's eye rash and was seen with severe headaches in [place], [place] - was found to have a [...] a root canal and was sent to [facility] for MRI which was negative but non-contrasted. [...] history goes back to January 2016 in [facility] where she had persisting headaches and slurred speech followed by lower extremity weakness. This took a few months to resolve and she is back to her normal state of being but some point in time during her her next she was seen by Dr. Humera Hyde in [place] as well and was found to have [...] CPE Hematology and Oncology Services Provided at: [place], [place] CC: MD Wilton Day, [address] [place] [address] Humaira Gaviria MD [address] [facility] [address] MD Cosmo Kingston MD Michael Blank, MD documented in this encounterKettering Memorial Hospital08-16-2023 Miscellaneous Notes* Telephone Encounter - Roberta [...] later time. Roberta Haskins documented in this encounterKettering Memorial Hospital06-23-2023 Hospital Discharge instructions Patient Education 10/20/2022 [...] your health care provider or diet and food and nutrition supervisor (dietitian). This may include: ?Eating fewer calories. [...] provider. Document Revised: 06/12/2021 Document Reviewed: 06/12/2021 [employer] Patient Education 2022 [employer]ar. 10/20/2022 10:37:18 Preventing Type 2 Diabetes Mellitus [...] with a registered dietitian. This diet and food and nutrition supervisor can help you make a healthy eating plan and help you understand portion sizes and food labels. Where to find support Ask your health care provider to recommend a registered dietitian, a certified diabetes care and assistant professor of education, or a weight loss program. Look for local or online weight loss groups. Join a gym, fitness club, or outdoor activity group, such as a walking club. Where to find more information For help and guidance and to learn more about diabetes and diabetes prevention, visit: [place] Diabetes Association (ADA): www.diabetes.org National [place] of Diabetes and Digestive and Kidney Diseases: [...] provider. Document Revised: 07/11/2021 Document Reviewed: 07/11/2021 [employer]l Patient Education 2022 [employer] 10/20/2022 10:37:17 Preventing Hypoglycemia Preventing Hypoglycemia [...] your hypoglycemia. Where to find more information [place] Diabetes Association: www.diabetes.org National [place] of Diabetes and Digestive and Kidney Diseases: [...] provider. Document Revised: 03/17/2021 Document Reviewed: 03/17/2021 [employer] Patient Education 2022 [employer]. 10/20/2022 10:37:16 Gestational Diabetes Mellitus, Diagnosis, Fmje-sg-Hjqw Gestational Diabetes Mellitus, Diagnosis Gestational diabetes mellitus [...] follow-up visits. Where to find more information Australian Diabetes Association (ADA): diabetes.org Association of Diabetes Care & Education Specialists (ADCES): diabeteseducator.org Centers for Disease Control and Prevention (CDC): cdc.gov [place] Association: americanpregnancy.org U.S. Department of Agriculture MyPlate: [...] provider. Document Revised: 09/20/2020 Document Reviewed: 09/20/2020 [employer] Patient Education 2022 [employer]ar. Follow Up Care 09/19/2022 14:47:09 With:PRAVEEN RESENDEZ FAAFP, CHRIS Perez, PED Address: [address] [place] [address], [facility] [place] [address]- When:Within 3 Month(s) [facility] 06-01-2023 History of Present illness Narrative* Kristofer Calix MD - 09/28/2022 5:00 PM EDT Images from the original note were not included. Kristofer Calix MD NAME: Sanna Rendon CLINIC NO.: [id number] DATE OF SERVICE: September 28, 2022 (Levon) [...] visit. Either the patient or their legal advertising account representative has been informed of the risks and benefits of -- and alternatives to -- treatment through a remote evaluation andconsents to proceed with the evaluation remotely. CC: hypercoag state. ASSESSMENT: 36 year old woman 25 weeks presents with a prior history of CVA in 2016 and anantiphospholipid antibody that was identified much later in 2018. These were found in [place], [place]. I don't have access to these [...] target-like rash shortly before presenting to [facility] in 2016 with headaches and was [...] and stayed on Lovenox Hgb 13.1 @ [facility] Recommended ER if persisting bleeding but she [...] and at age 69. Both lived in [facility] but she was adopted. She was not able to see ID in October and will be seeing Dr. Baugh next week. Also will have her see Dr. Hamlin for her clotting disorder and make any other recommendations to optimize her treatment. Updated Visit, October 08, 2020: Telephone only Received call from pt stating she was seen in [facility] for numbness in her chest, throat, and extremities, and sob which has been worsening over the last week. We arranged a telephone visit for her chanw questions with me. Sanna Rendon is a 34 year old female seen for Hypercoagulable state and recent concerns and symptoms that required her to be seen at [facility]. She went to the ER with Gradual worsening of breathing after progressive tingling of fingers and legs. She currently remains very fatigued even though she is sleeping well. Now recalls that before her stroke she remembers having a bull's eye rash and was seen with severe headaches in [facility] was found to have a stroke [...] a root canal and was sent to [facility] for MRI which was negative but non-contrasted. [...] history goes back to January 2016 in [facility] where she had persisting headaches and slurred speech followed by lower extremity weakness. This took a few months to resolve and she is back to her normal state of being but some point in time during her her next she was seen by Dr. Humera Hyde in [place] as well and was found to have [...] CPE Hematology and Oncology Services Provided at: [place], [place] CC: MD Wilton Day, [address] [place] [address] Humaira Gaviria MD [facility] [address] [facility] [address] MD Cosmo Kingston MD Michael Blank, MD documented in this encounterKettering Memorial Hospital05-24-2023 Miscellaneous Notes* Telephone Encounter - Cheri Marck Sec - 09/20/2022 7:06 AM EDT Cxed appt * Telephone Encounter - Valeri Yeung RN - 09/19/2022 3:29 PM EDT Patient would like to have labs drawn at [facility]. Called [facility] lab to get fax number. Lab orders faxed to [phone] Valeri Yeung RN PSS: Can you cancel lab appointment for 09/21/22 here. Thanks. Valeri Yeung RN documented in this encounterKettering Memorial Hospital04-04-2023 Instructions* Patient Instructions* Kristofer Calix MD - 08/01/2022 10:56 AM EDT Continue Lovenox - patient prefers 40 mg (rather than rec 80mg) 8 weeks - labs Phone / Virtual call after documented in this encounterKettering Memorial Hospital03-30-2023 History of Present illness Narrative* Kristofer Calix MD - 07/27/2022 1:18 PM EDT NAME: Sanna Rendon CLINIC NO.: [id number] DATE OF SERVICE: July 27, 2022 (Levon) [...] later in 2018. These were found in [place], [place]. I don't have access to these [...] target-like rash shortly before presenting to [facility] in 2016 with headaches and was [...] and at age 69. Both lived in [facility] but she was adopted. She was not able to see ID in October and will be seeing Dr. Baugh next week. Also will have her see Dr. Hamlin for her clotting disorder and make any other recommendations to optimize her treatment. Updated Visit, October 08, 2020: Telephone only Received call from pt stating she was seen in [facility] for numbness in her chest, throat, and extremities, and sob which has been worsening over the last week. We arranged a telephone visit for her franci questions with me. Sanna Rendon is a 34 year old female seen for Hypercoagulable state and recent concerns and symptoms that required her to be seen at [facility]. She went to the ER with Gradual worsening of breathing after progressive tingling of fingers and legs. She currently remains very fatigued even though she is sleeping well. Now recalls that before her stroke she remembers having a bull's eye rash and was seen with severe headaches in [facility] was found to have a stroke [...] a root canal and was sent to [facility] for MRI which was negative but non-contrasted. [...] history goes back to January 2016 in [facility] where she had persisting headaches and slurred speech followed by lower extremity weakness. This took a few months to resolve and she is back to her normal state of being but some point in time during her her next she was seen by Dr. Humera Hyde in [place] as well and was found to have [...] which included preparing to see the patient, keej-mb-zmjm patient care, completing clinical documentation, obtaining and/or reviewing separately obtained history, performing a medically appropriate examination, counseling and educating the pat ient/family/caregiver, ordering medications, tests, or procedures, independently interpreting results (not separately reported), and care coordination (not separately reported). Kristofer Calix MD, CPE Hematology and Oncology Services Provided at: [place], [place] CC: MD Wilton Day, [address] [place] [address] Humaira Gaviria MD [address] [facility] [address] MD Cosmo Kingston MD Michael Blank, MD documented in this encounterK[facility]12[facility] History of Present illness Narrative* Alison [...] to standard infusion rate. documented in this encounterKettering [facility]12-06-2022 Miscellaneous Notes* Telephone Encounter - Marleen [...] appt. All questions answered. 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 FELY: Pt would like to have Venofer ordered and not get Monoferric even if approved. Please place orders if agreeable. Meme Gonzalez RN documented in this encounterKettering [facility] Hospital12-01-2022 Miscellaneous Notes* Telephone Encounter - [...] were not included. Kristofer Calix MD [facility] Triage Pool; [facility] Clerical Pool She needs iron MUNIRA - if monoferric isn't approved, lets get her in weekly for Venna for. * Telephone Encounter - Roberta Haskins - 03/27/2022 2:57 PM EST 2. Consider IV iron a. Triage nurse to please call iron results when available this week documented in this encounterKettering [facility] Hospital11-28-2022 Instructions* Patient Instructions* Kristofer Calix MD - 03/27/2022 2:51 PM EST Continue Lovenox - patient prefers 40 mg (rather than rec 80mg) Consider IV iron Triage nurse to please call iron results when available this week Will recheck antiphospholipid antibodies as ordered and every 6 months. RTC in 8 weeks - labs same day. documented in this encounterKettering [facility] Hospital11-28-2022 History of Present illness Narrative* Kristofer Calix MD - 03/27/2022 2:15 PM EST Images from the original note were not included. NAME: Sanna Rendon CLINIC NO.: [id number] DATE OF SERVICE: March 27, 2022 (Levon) [...] later in 2018. These were found in [place], [place]. I don't have access to these [...] target-like rash shortly before presenting to [facility] in 2016 with headaches and was [...] and at age 69. Both lived in [facility] but she was adopted. She was not able to see ID in October and will be seeing Dr. Baugh next week. Also will have her see Dr. Hamlin for her clotting disorder and make any other recommendations to optimize her treatment. Updated Visit, October 08, 2020: Telephone only Received call from pt stating she was seen in [facility] for numbness in her chest, throat, and extremities, and sob which has been worsening over the last week. We arranged a telephone visit for her chanw questions with me. Sanna Rendon is a 34 year old female seen for Hypercoagulable state and recent concerns and symptoms that required her to be seen at [facility]. She went to the ER with Gradual worsening of breathing after progressive tingling of fingers and legs. She currently remains very fatigued even though she is sleeping well. Now recalls that before her stroke she remembers having a bull's eye rash and was seen with severe headaches in [place], [place] - was found to have a [...] a root canal and was sent to [facility] for MRI which was negative but non-contrasted. [...] history goes back to January 2016 in [facility] where she had persisting headaches and slurred speech followed by lower extremity weakness. This took a few months to resolve and she is back to her normal state of being but some point in time during her her next she was seen by Dr. Humera Hyde in [place] as well and was found to have [...] which included preparing to see the patient, vtig-[id number] patient care, completing clinical documentation, obtaining and/or reviewing separately obtained history, performing a medically appropriate examination, counseling and educating the pat ient/family/caregiver, ordering medications, tests, or procedures, independently interpreting results (not separately reported), and care coordination (not separately reported). Kristofer Calix MD, CPE Hematology and Oncology Services Provided at: [place], [place] CC: MD Chalino Dayy Spencer Herrmann, [address] [place] [address] Humaira Gaviria MD [address] [place] [id number] MD Cosmo Kingston MD Michael Blank, MD documented in this encounterKettering [facility] Hospital10-03-2022 Instructions* Patient Instructions* Kristofer Calix MD - 01/30/2022 12:[address] Hamlin's expertise and will prescribe Lovenox - patient prefers 40 mg (rather than rec 80mg) Will recheck antiphospholipid antibodies as ordered and every 6 months. RTC in 8 weeks - labs same day. documented in this encounterKettering [facility] Hospital10-03-2022 History of Present illness Narrative* Kristofer Calix MD - 01/30/2022 11:59 AM EDT Images from the original note were not included. NAME: Sanna Rendon CLINIC NO.: [id number] DATE OF SERVICE: January 30, 2022 Some [...] later in 2018. These were found in [place], [place]. I don't have access to these [...] target-like rash shortly before presenting to [facility] in 2016 with headaches and was [...] and at age 69. Both lived in [facility] but she was adopted. She was not able to see ID in October and will be seeing Dr. Baugh next week. Also will have her see Dr. Hamlin for her clotting disorder and make any other recommendations to optimize her treatment. Updated Visit, October 08, 2020: Telephone only Received call from pt stating she was seen in [facility] for numbness in her chest, throat, and extremities, and sob which has been worsening over the last week. We arranged a telephone visit for her chanw questions with me. Sanna Rendon is a 34 year old female seen for Hypercoagulable state and recent concerns and symptoms that required her to be seen at [facility]. She went to the ER with Gradual worsening of breathing after progressive tingling of fingers and legs. She currently remains very fatigued even though she is sleeping well. Now recalls that before her stroke she remembers having a bull's eye rash and was seen with severe headaches in [place], [place] - was found to have a [...] a root canal and was sent to [facility] for MRI which was negative but non-contrasted. [...] history goes back to January 2016 in [facility] where she had persisting headaches and slurred speech followed by lower extremity weakness. This took a few months to resolve and she is back to her normal state of being but some point in time during her her next she was seen by Dr. Humera Hyde in [place] as well and was found to have [...] which included preparing to see the patient, raxt-uk-cura patient care, completing clinical documentation, obtaining and/or reviewing separately obtained history, performing a medically appropriate examination, counseling and educating the pat ient/family/caregiver, and ordering medications, tests, or procedures. Kristofer Calix MD, [place], [place] CC: MD Wilotn Day, [address] [place] [address] Humaira Gaviria MD [address] [facility] [id number] MD Cosmo Kingston MD Michael Blank, MD documented in this encounterKettering [facility] Hospital10-03-2022 Nurse Note* Serina Dawson MA - 01/30/2022 11:55 AM EDT Patient states she may be diagnosed with gestational diabetes, she was from 215 to 52 a couple hours later after eating wheat cereal. She sees OB tomorrow. Serina Dawson MA documented in this encounterKettering [facility] Hospital09-02-2022 Miscellaneous Notes* Telephone Encounter - Tonja Pope RN - 12/30/2021 10:15 AM EDT Call received from Sanna requesting refill of Lovenox 40 mg to be sent to [facility] in [place]. FELY: Please review and approve if you agree. Tonja Chery RN documented in this encounterKettering [facility] Hospital06-13-2022 Miscellaneous Notes* Telephone Encounter - Meme Easton RN - 10/10/2021 12:15 PM EDT Received call from pt requesting refill of Lovenox 40 mg to be sent to [facility] in [place]. FELY: Pt also states she had one episode of blood in her stool which was dripping blood which concerned her. She is not ready to move to 80 mg of Lovenox at this time. Order pending. Please review and sign if agreeable. Meme Easton RN documented in this encounterKettering [facility] Hospital05-10-2022 Miscellaneous Notes* Telephone Encounter - Kristofer [...] agreeable. Meme Easton RN documented in this encounterKettering [facility] Hospital05-09-2022 Miscellaneous Notes* Telephone Encounter - Meme [...] advise. Meme Easton RN documented in this encounterKettering Memorial Hospital04-25-2022 Miscellaneous Notes* Telephone Encounter - Meme [...] Thoughts? Meme Easton RN documented in this encounterKettering Memorial Hospital04-22-2022 Hospital Discharge instructions Patient Education 08/19/2021 [...] including vitamins, herbs, eye drops, creams, and atph-ywd-yvlomut medicines. ?Whether you are or may be [...] 02/11/2008 Document Revised: 08/05/2019 Document Reviewed: 02/18/2018 [employer] Patient Education 2020 [employer] 08/19/2021 13:02:21 Dysuria Dysuria Dysuria is [...] alcohol may irritate the prostate. Medicines Take ecrf-yyt-iahztbu and prescription medicines only as told by [...] 01/12/2005 Document Revised: 03/29/2018 Document Reviewed: 01/31/2018 [employer] Patient Education 2020 [employer] 08/19/2021 13:02:17 Budget-Friendly Healthy Eating Budget-Friendly [...] frozen fruits, and frozen vegetables. Avoid buying ttvhh-hc-zjv foods, such as pre-cut fruits and vegetables [...] 12/18/2014 Document Revised: 04/17/2018 Document Reviewed: 04/17/2018 [employer] Patient Education 2020 [employer]. 08/19/2021 13:02:15 BMI for Adults BMI for [...] height. This can be done either in [place] ([place] or metric measurements. Note that charts are available to help you find your BMI quickly and easily without having to do these calculations yourself. To calculate your BMI in [place] ([place] measurements, your health care provider will: [...] medical problems. BMI can be measured using [place] measurements or metric measurements. To interpret your [...] 12/26/2004 Document Revised: 03/29/2018 Document Reviewed: 02/27/2018 [employer] Patient Education 2020 [employer] 08/19/2021 13:02:11 Paresthesia Paresthesia Paresthesia is [...] fried or sweet foods. General instructions Take dndj-jlk-mijmdto and prescription medicines only as told by [...] 04/06/2003 Document Revised: 05/12/2019 Document Reviewed: 04/25/2018 [employer] Patient Education 2020 [employer]. Follow Up Care 08/19/2021 09:17:52 With:PRAVEEN RESENDEZ FAAFP, Penelope Tony, CHRIS, PED Address: [address], [facility] [place] [address]- When:1 to 2 weeks [facility] 04-22-2022 Evaluation + Plan note Future Scheduled Tests Radiology* XR Spine Lumbosacral Minimum 4 Views 08/19/21 [facility]04-07-2022 Miscellaneous Notes* Telephone Encounter - Roberta Haskins - 08/04/2021 3:36 PM EDT Patient is scheduled for 09/[address] Elliott. Roberta Haskins * Telephone Encounter - Roberta Semon - 08/01/2021 1:05 PM EDT Sent Email to [facility] to refer patient back to Dr. Cosmo Elliott Dx: Primary hypercoagulable state (HCC) Roberta Haskins documented in this encounterKettering [facility] Hospital04-04-2022 Nurse Note* Ebony Redding Ma - 08/01/2021 12:48 PM EDT UA ran as ordered. Ebony Redding Ma documented in this encounterKettering [facility] Hospital03-28-2020 Evaluation + Plan note Future Appointments Appointment Date:07/25/2024 02:30:00 PM Scheduled Provider: Location:[facility] Appointment Type:CV EKG (FT) Appointment Date:07/25/2024 03:00:00 PM Scheduled Provider: Location:.[facility] Appointment Type:CV Holter/Event (FT) Appointment Date:09/09/2024 08:20:00 AM Scheduled Provider:Penelope CASAS DO, FAAFP Location:[facility] [place] [employer] Appointment Type:FM Open Future Scheduled Tests Laboratory* HgbA1c 08/05/24 * HgbA1c 11/04/24 Radiology* CT Soft Tissue Neck w/ Contrast 11/12/23 [facility] 03-28-2020 Evaluation + Plan note Future Appointments Appointment Date:07/25/2024 02:30:00 PM Scheduled Provider: Location:[facility] Appointment Type:CV EKG (FT) Appointment Date:07/25/2024 03:00:00 PM Scheduled Provider: Location:.[facility] Appointment Type:CV Holter/Event (FT) Appointment Date:09/09/2024 08:20:00 AM Scheduled Provider:Penelope CASAS DO, FAAFP Location:[facility] [place] [facility] Appointment Type:FM Open Diagnostic Tests Pending * Hepatitis B Surface Antigen 07/09/24 * HCV Antibody RFX to Quant PCR 07/09/24 * Hep Be Ag 07/09/24 * HIV Screen 4th Generation wRfx 07/09/24 Future Scheduled Tests Laboratory* HgbA1c 08/05/24 * HgbA1c 11/04/24 Radiology* CT Soft Tissue Neck w/ Contrast 11/12/23 [facility] Evaluation + Plan note Future Appointments Appointment Date:11/08/2021 12:40:00 PM Scheduled Provider:Penelope CASAS DO, FAAFP Location:[facility] Appointment Type: Open Future Scheduled Tests Radiology* XR Spine Lumbosacral Minimum 4 Views 08/19/21 [facility] Evaluation + Plan note Future Appointments Appointment Date:11/08/2021 12:40:00 PM Scheduled Provider:Penelope CASAS DO, FAAFP Location:[facility] Appointment Type: Open Diagnostic Tests Pending * Urine Culture 08/19/21 Future Scheduled Tests Radiology* XR Spine Lumbosacral Minimum 4 Views 08/19/21 [facility] Future Appointments Appointment Date:09/21/2022 10:00:00 AM Scheduled Provider:Penelope CASAS DO, FAAFP Location:[facility] Future Appointments Appointment Date:10/20/2022 09:40:00 AM Scheduled Provider:Penelope CASAS DO, FAAFP Location:[facility] Future Appointments Appointment Date:01/26/2023 10:40:00 AM Scheduled Provider:Penelope CASAS DO, FAAFP Location:[facility] Appointment Type:[facility] Evaluation + Plan note Future Appointments Appointment Date:04/17/2023 02:20:00 PM Scheduled Provider:Penelope CASAS DO, FAAFP Location:[facility] Appointment Type: Open Future Scheduled Tests Laboratory* HgbA1c 02/15/23 * Thyroid Stimulating Hormone 02/15/23 * Thyroid Stimulating Hormone 01/11/23 [facility] Evaluation + Plan note Future Appointments Appointment Date:07/24/2023 01:20:00 PM Scheduled Provider:Penelope CASAS DO, FAAFP Location:[facility] Appointment Type:FM Open Future Scheduled Tests Laboratory* HgbA1c 02/15/23 * Thyroid Stimulating Hormone 02/15/23 [facility] Future Appointments Appointment Date:07/24/2023 01:20:00 PM Scheduled Provider:Penelope CASAS DO, FAAFP Location:[facility] Appointment Type: Open [facility] evaluation + Plan note Future Appointments Appointment Date:12/03/2023 12:40:00 PM Scheduled Provider:Penelope CASAS DO, FAAFP Location:[facility] Appointment Type: Open Future Scheduled Tests Laboratory* HgbA1c 08/03/23 [facility] Evaluation + Plan note [...] Orbit Face Neck w/o contrast 11/09/23 [facility] evaluation + Plan note Future Appointments Appointment Date:01/11/2024 08:15:00 PM Scheduled Provider: Location:.SLEEP LAB_ Appointment Type:ENVIRONMENTAL CONSERVATION OFFICER Sleep Study PSG () Appointment Date:01/29/2024 01:20:00 PM Scheduled Provider:Penelope CASAS DO, FAAFP Location:[facility] Appointment Type:FM Open Diagnostic Tests Pending * Cortisol 12/06/23 * T3 Free 12/06/23 Future Scheduled Tests Laboratory* HgbA1c 08/03/23 Radiology* CT Soft Tissue Neck w/ Contrast 11/12/23 [facility] evaluation + Plan note Future Appointments [...] Soft Tissue Neck w/ Contrast 11/12/23 [facility] evaluation + Plan note Future Appointments Appointment Date:05/16/2024 11:40:00 AM Scheduled Provider:Penelope CASAS DO, FAAFP Location:[facility] Appointment Type:FM Open Future Scheduled Tests Laboratory* HgbA1c 05/07/24 * HgbA1c 08/05/24 * HgbA1c 11/04/24 Radiology* CT Soft Tissue Neck w/ Contrast 11/12/23 [facility] evaluation + Plan note Future Appointments Appointment Date:05/16/2024 11:40:00 AM Scheduled Provider:Penelope CASAS DO, FAAFP Location:[facility] Appointment Type:FM Open Diagnostic Tests Pending * HIV Screen 4th Generation wRfx 02/23/24 Future Scheduled Tests Laboratory* HgbA1c 05/07/24 * HgbA1c 08/05/24 * HgbA1c 11/04/24 Radiology* CT Soft Tissue Neck w/ Contrast 11/12/23 [facility] evaluation + Plan note Future Appointments Appointment Date:05/16/2024 11:40:00 AM Scheduled Provider:Penelope CASAS DO, FAAFP Location:[facility] Appointment Type:FM Open Future Scheduled Tests Laboratory* HgbA1c 08/05/24 * HgbA1c 11/04/24 Radiology* CT Soft Tissue Neck w/ Contrast 11/12/23 [facility] evaluation + Plan note Future Appointments Appointment Date:05/16/2024 11:40:00 AM Scheduled Provider:Penelope CASAS DO, FAAFP Location:[facility] Appointment Type:FM Open Diagnostic Tests Pending * Urine Culture 03/01/24 Future Scheduled Tests Laboratory* HgbA1c 08/05/24 * HgbA1c 11/04/24 Radiology* CT Soft Tissue Neck w/ Contrast 11/12/23 [facility] evaluation + Plan note Future Appointments Appointment Date:07/07/2024 02:20:00 PM Scheduled Provider:Penelope CASAS DO, FAAFP Location:[facility] Appointment Type:FM Open Future Scheduled Tests Laboratory* HgbA1c 08/05/24 * HgbA1c 11/04/24 Radiology* CT Soft Tissue Neck w/ Contrast 11/12/23 [facility] evaluation + Plan note Future Appointments Appointment Date:09/09/2024 08:20:00 AM Scheduled Provider:Penelope CASAS DO, FAAFP Location:[facility] Appointment Type:FM Open Future Scheduled Tests Laboratory* HgbA1c 08/05/24 * HgbA1c 11/04/24 Radiology* CT Soft Tissue Neck w/ Contrast 11/12/23 [facility] evaluation note* Diagnosis Infective urethritis- Primary Urethritis, unspecified documented [facility] encounter [facility]* Diagnosis Primary hypercoagulable state (HCC) Primary hypercoagulable state CVA, old, speech/language deficit Speech and language deficit, unspecified, 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 Hyposmolality and/or hyponatremia documented in this encounter [facility]* Diagnosis Primary hypercoagulable state (HCC) Primary hypercoagulable state CVA, old, speech/language deficit Speech and language deficit, unspecified, 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 Hyposmolality and/or hyponatremia documented in this encounter [facility]* Diagnosis Primary hypercoagulable state (HCC)- Primary Primary hypercoagulable state CVA, old, speech/language deficit Speech and language deficit, unspecified, late effect of cerebrovascular disease Antiphospholipid antibody syndrome (HCC) Primary hypercoagulable state Anemia, unspecified type [facility] Diagnosis Iron deficiency anemia secondary to blood loss (chronic) Iron deficiency anemia of Anemia of mother, complicating , childbirth, or the puerperium, unspecified as to episode of care documented in this encounter [facility]* 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 Iron deficiency anemia of Anemia of mother, complicating , childbirth, or the puerperium, unspecified as to episode of care documented in this encounter [facility]* Diagnosis Primary hypercoagulable state (HCC) Primary hypercoagulable state CVA, old, speech/language deficit Speech and language deficit, unspecified, 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 Hyposmolality and/or hyponatremia documented in this encounter [facility]* 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 Iron deficiency anemia of Anemia of mother, complicating , childbirth, or the puerperium, unspecified as to episode of care documented [facility] this encounter [facility]* Diagnosis Primary hypercoagulable state (HCC) Primary hypercoagulable state CVA, old, speech/language deficit Speech and language deficit, unspecified, 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 Hyposmolality and/or hyponatremia documented in this encounter [facility]* Diagnosis Primary hypercoagulable state (HCC)- Primary Primary hypercoagulable state 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, old, speech/language deficit Speech and language deficit, unspecified, late effect of cerebrovascular disease documented in this encounter [facility]* Diagnosis Primary hypercoagulable state (HCC) [...] D deficiency [facility] Diagnosis Primary hypercoagulable state [...] malaise and fatigue [facility] Diagnosis Vitamin D deficiency- Primary [...] malaise and fatigue [facility]* Diagnosis Primary hypercoagulable state (HCC) Primary hypercoagulable state CVA, old, speech/language deficit Speech and language deficit, unspecified, 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 Hyposmolality and/or hyponatremia documented in this encounter [facility]* Diagnosis Missed menses , unspecified gestational age Encounter for supervision of normal first in first trimester Hypothyroidism (acquired) ([facility]) Unspecified hypothyroidism Low vitamin D level documented in this encounter [facility]* Diagnosis 14 weeks gestation of Second trimester state, incidental Confirm viability with history of miscarriage, ultrasound Encounter for routine screening for malformation using ultrasonics documented in this encounter [facility] HealthcareEvaluation noteNo assessment information availableOhio[facility] Work Phone: Evaluation note* Diagnosis Primary hypercoagulable state (HCC)- Primary Primary hypercoagulable state CVA, old, speech/language deficit Speech and language deficit, unspecified, 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) Vitamin D deficiency Unspecified vitamin D deficiency Antiphospholipid antibody syndrome (HCC) Primary hypercoagulable state documented in this encounter [facility] [facility] Diagnosis Follow-up visit after miscarriage Abnormal TSH History of thyroid disease documented in this encounter [facility] HealthcareEvaluation note* Diagnosis Vaginal bleeding Other specified noninflammatory disorder of vagina Dizziness Dizziness and giddiness Abnormal TSH Vaginal discharge Leukorrhea, not specified as infective Pelvic pain in female Unspecified symptom associated with female genital organs documented in this encounter [facility] HealthcareEvaluation note* Diagnosis Irregular menstrual cycle documented in this encounter [facility] HealthcareEvaluation note* Diagnosis Primary hypercoagulable state (HCC) Primary hypercoagulable state CVA, old, speech/language deficit Speech and language deficit, unspecified, 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 Hyposmolality and/or hyponatremia [facility] Antiphospholipid antibody positive- Primary Other and unspecified nonspecific immunological findings Iron deficiency anemia secondary to blood loss (chronic) Malaise and fatigue Other malaise and fatigue Vitamin D deficiency Unspecified vitamin D deficiency [facility] Diagnosis Amenorrhea Absence of menstruation Missed menses , unspecified gestational age Encounter for supervision of normal first in first trimester Thyroid disease ([facility]/HCC) Unspecified disorder of thyroid documented in this encounter [facility] HealthcareEvaluation note* Diagnosis Gestational diabetes mellitus (GDM), antepartum, gestational diabetes method of control unspecified- Primary [facility] Diagnosis Primary hypercoagulable state (HCC) Primary hypercoagulable state CVA, old, speech/language deficit Speech and language deficit, unspecified, 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 Hyposmolality and/or hyponatremia [facility] Diagnosis Primary hypercoagulable state (HCC)- Primary Primary hypercoagulable state CVA, old, speech/language deficit Speech and language deficit, unspecified, 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 Hyposmolality and/or hyponatremia Personal history of TIA (transient ischemic attack) Transient ischemic attack (TIA), and cerebral infarction without residual deficits [facility] Diagnosis Second trimester (HHS-HCC) state, incidental 13 weeks gestation of ([facility]-HCC) Thyroid disease Unspecified disorder of thyroid Multigravida of advanced maternal age in second trimester ([facility]-HCC) Gestational diabetes mellitus (GDM), antepartum, gestational diabetes method of control unspecified([facility]) Elevated glucose tolerance test Impaired glucose tolerance test documented in this encounter [facility] HealthcareEvaluation note* Diagnosis Gestational diabetes mellitus (GDM), antepartum, gestational diabetes method of control unspecified- Primary [facility]* Diagnosis Second trimester (HHS-HCC) state, incidental 16 weeks gestation of ([facility]-HCC) Screening, , for anatomic survey ([facility]) Encounter for anatomic survey Vaginal discharge Leukorrhea, not specified as infective Sinus headache Headache documented in this encounter [facility] HealthcareEvaluation note* Diagnosis Insulin controlled gestational diabetes mellitus (GDM) in second trimester- Primary [facility]* Diagnosis 19 weeks gestation of (HHS-HCC) Second trimester ([facility]-H[facility]) state, incidental Thyroid disease Unspecified disorder of thyroid Multigravida of advanced maternal age in second trimester (HHS-HCC) Gestational diabetes mellitus (GDM), antepartum, gestational diabetes method of control unspecified([facility]HCC) [facility] Gestational diabetes mellitus (GDM) in second trimester controlled on oral hypoglycemic drug- Primary [facility]* Diagnosis Antiphospholipid antibody positive- Primary Other and unspecified nonspecific immunological findings Iron deficiency anemia secondary to blood loss (chronic) Vitamin D deficiency Unspecified vitamin D deficiency Primary hypercoagulable state (HCC) Primary hypercoagulable state [facility] Diagnosis Gestational diabetes mellitus (GDM) in second trimester controlled on oral hypoglycemic drug- Primary [facility] Diagnosis Multigravida of advanced maternal age in second trimester- Primary Antiphospholipid syndrome complicating , antepartum Gestational diabetes mellitus (GDM) in second trimester controlled on oral hypoglycemic drug Insulin controlled gestational diabetes mellitus (GDM) in second trimester AMA (advanced maternal age) multigravida 35+, second trimester Hypothyroidism, unspecified type [facility] Diagnosis 22 weeks gestation [...] and/or hyponatremia [facility]* Diagnosis Multigravida of advanced [...] and/or hyponatremia [facility]* Diagnosis Second trimester (HHS-HCC) state, incidental 23 weeks gestation of ([facility]) Thyroid disease Unspecified disorder of thyroid Gestational diabetes mellitus (GDM), antepartum, gestational diabetes method of control unspecified([facility]) Multigravida of advanced maternal age in [...] , antepartum documented in this encounter [facility]* Diagnosis Second trimester (HHS-HCC) state, incidental 25 weeks gestation of ([facility]) Gestational diabetes mellitus (GDM), antepartum, gestational diabetes method of control unspecified([facility]) Anticoagulant long-term use Encounter for long-term (current) use of anticoagulants Antiphospholipid antibody positive Other and unspecified nonspecific immunological findings Antiphospholipid antibody syndrome ([facility]) Primary hypercoagulable state documented in this encounter [facility] HealthcareEvaluation note* Diagnosis 27 weeks gestation of - Primary Multigravida of advanced maternal age in third trimester Gestational diabetes mellitus (GDM) in second trimester controlled on oral hypoglycemic drug Antiphospholipid syndrome complicating , antepartum Antiphospholipid syndrome Primary hypercoagulable state [facility] Diagnosis Third trimester (HHS-HCC) state, incidental 28 weeks gestation of ([facility]) Anemia complicating childbirth ([facility]) Anticoagulant long-term use Encounter for long-term (current) use of anticoagulants Antiphospholipid antibody positive Other and unspecified nonspecific immunological findings Blood pressure elevated without history of HTN Coagulation defect, unspecified ([facility]) documented [facility]* Diagnosis Antiphospholipid syndrome- Primary Primary hypercoagulable state Antiphospholipid syndrome complicating , antepartum History of CVA (cerebrovascular accident) Transient ischemic attack (TIA), and cerebral infarction without residual deficits Coordination of complex care 29 weeks gestation of documented in this encounter [facility]* Diagnosis Third trimester (HHS-HCC) state, incidental 30 weeks gestation of (HHS-HCC) documented [facility] encounter [facility] Narrative No data available for this section [facility] Discharge instructions No data available for this section [facility] HospitalInstructionsNot on filedocumented in this encounter [facility] [...] be sent through Care Everywhere. * Preeclampsia ([place]) documented [facility]ructionsNot on file documented in [facility] SystemInstructionsNot on file documented in this [facility] SystemInstructionsNot on file documented in this encounter[facility] SystemInstructionsNot on file documented in this [facility] SystemInstructions* Attachments The following attachments cannot be sent through Care Everywhere. * Preeclampsia ([place]) documented in [facility] SystemInstructionsNot on file documented in this encounterPro[facility] Health SystemInstructionsNot on file documented in this encounterPro[facility] SystemProgress note No data available for this section [facility] HospitalReason for referral (narrative) , pt reported hx of nasal polyps and deviated septum but never had surgery done Referred by: Lourdes Urrutia [facility] Primary [facility] Reason for visit Narrative* Consultation (Urgent) - Pending ReviewSpecialtyDiagnoses / ProceduresReferred By ContactReferred To ContactRheumatology Diagnoses 22 weeks gestation of Antiphospholipid syndrome complicating , antepartum Mukul Noyola MD [address] [facility], [address] [place] [id number] Phone: tel: fax: Sam Callahan MD MPH [address] [id number] Phone: tel: fax: Referral IDStatusReasonStart DateExpiration DateVisits RequestedVisits [id number] Review [facility] Summary Purpose Family History No [...] a 30 minute post dose observation. Rate/Dose Tnrngy3704/05/2022 2:44 PM CSM921.67 mL/cpImjqqaiae56/07/2022 2:25 PM RKC002 mL/hrNew Bag/Syringe/Yhqddz0004/05/2022 1:52 PM FKG928 mg166.67 mL/hr Medication OrderMAR ActionAction DateDoseRateSite iron sucrose 300 mg in NaCl 0.9% 250 mL (VENOFER) 300 mg, INTRAVENOUS, at 166.67 mL/hr, Administer over 90 Minutes, ONCE, 1 dose, On Christie 04/20/22 at 1400, Please conduct a 30 minute post dose observation. New Bag/Syringe/Ubvljv7604/20/2022 2:01 PM GIU877 mg166.67 mL/hr Additional Source Comments INFORMATION SOURCE (unrecogn ized section and content) DATE CREATED AUTHOR 10/22/2017 [facility] DATE CREATED AUTHOR AUTHOR'S ORGANIZ ATION 11/14/2017 [employer] DATE CREATED AUTHOR AUTHOR'S ORGANIZ ATION 06/18/2018 [facility] DATE CREATED AUTHOR AUTHOR'S ORGANIZ ATION 12/30/2021 [facility] DATE CREATED AUTHOR AUTHOR'S ORGANIZ ATION 06/09/2022 [facility] DATE CREATED AUTHOR AUTHOR'S ORGANIZ ATION 09/29/2023 [facility] DATE CREATED AUTHOR AUTHOR'S ORGANIZ ATION 12/03/2023 [facility] DATE CREATED AUTHOR AUTHOR'S ORGANIZ ATION 12/09/2023 [facility] DATE CREATED AUTHOR AUTHOR'S ORGANIZ ATION 12/10/2023 [facility] DATE CREATED AUTHOR AUTHOR'S ORGANIZ ATION 01/27/2024 [facility] DATE CREATED AUTHOR AUTHOR'S ORGANIZ ATION 02/24/2024 [facility] DATE CREATED AUTHOR AUTHOR'S ORGANIZ ATION 02/26/2024 [facility] DATE CREATED AUTHOR AUTHOR'S ORGANIZ ATION 02/28/2024 [facility] DATE CREATED AUTHOR AUTHOR'S ORGANIZ ATION 03/02/2024 [facility] DATE CREATED AUTHOR AUTHOR'S ORGANIZ ATION 03/03/2024 [facility] DATE CREATED AUTHOR AUTHOR'S ORGANIZ ATION 05/15/2024 [facility] DATE CREATED AUTHOR AUTHOR'S ORGANIZ ATION 05/17/2024 [facility] DATE CREATED AUTHOR AUTHOR'S ORGANIZ ATION 05/18/2024 [facility] DATE CREATED AUTHOR AUTHOR'S ORGANIZ ATION 05/19/2024 [facility] DATE CREATED AUTHOR AUTHOR'S ORGANIZ ATION 06/11/2024 [facility] DATE CREATED AUTHOR AUTHOR'S ORGANIZ ATION 06/17/2024 [facility] DATE CREATED AUTHOR AUTHOR'S ORGANIZ ATION 07/09/2024 [facility] DATE CREATED AUTHOR AUTHOR'S ORGANIZ ATION 07/12/2024 [facility] DATE CREATED AUTHOR AUTHOR'S ORGANIZ ATION 07/15/2024 [facility] DATE CREATED AUTHOR AUTHOR'S ORGANIZ ATION 08/24/2024 [facility] DATE CREATED AUTHOR AUTHOR'S ORGANIZ ATION 08/26/2024 [facility] DATE CREATED AUTHOR AUTHOR'S ORGANIZ ATION 09/01/2024 [facility] DATE CREATED AUTHOR AUTHOR'S ORGANIZ ATION 09/08/2024 [facility] DATE CREATED AUTHOR AUTHOR'S ORGANIZ ATION 09/11/2024 [facility] DATE CREATED AUTHOR AUTHOR'S ORGANIZ ATION 12/09/2024 [facility] DATE CREATED AUTHOR AUTHOR'S ORGANIZ ATION 01/18/2025 [facility] DATE CREATED AUTHOR AUTHOR'S ORGANIZ ATION 02/07/2025 [facility] DATE CREATED AUTHOR AUTHOR'S ORGANIZ ATION 02/13/2025 [facility] DATE CREATED AUTHOR AUTHOR'S ORGANIZ ATION 02/17/2025 [facility] DATE CREATED AUTHOR AUTHOR'S ORGANIZ ATION 02/24/2025 [facility] DATE CREATED AUTHOR AUTHOR'S ORGANIZ ATION 03/03/2025 [facility] Source Comments (unrecognize d section and content) In the event this informatio n is protected by the Federal Confidentiality of Alcohol and Drug Abuse Patient Records regulations: The Federal rules restrict any use of the information to criminally investigate or prosecute any alcohol or drug abuse patient.[facility]In the event this information is protected by the Federal Confidentiality of Alcohol and Drug Abuse Patient Records regulations: The Federal rules restrict any use of the information to criminally investigate or prosecute any alcohol or drug abuse patient.[facility] HospitalIn the event this information is protected by the Federal Confidentiality of Alcohol and Drug Abuse Patient Records regulations: The Federal rules restrict any use of the information to criminally investigate or prosecute any alcohol or drug abuse patient.[facility] HospitalIn the event this information is protected by the Federal Confidentiality of Alcohol and Drug Abuse Patient Records regulations: The Federal rules restrict any use of the information to criminally investigate or prosecute any alcohol or drug abuse patient.[facility] HospitalIn the event this information is protected by the Federal Confidentiality of Alcohol and Drug Abuse Patient Records regulations: The Federal rules restrict any use of the information to criminally investigate or prosecute any alcohol or drug abuse patient.[facility] HospitalIn the event this information is protected by the Federal Confidentiality of Alcohol and Drug Abuse Patient Records regulations: The Federal rules restrict any use of the information to criminally investigate or prosecute any alcohol or drug abuse patient.[facility] HospitalIn the event this information is protected by the Federal Confidentiality of Alcohol and Drug Abuse Patient Records regulations: The Federal rules restrict any use of the information to criminally investigate or prosecute any alcohol or drug abuse patient.[facility] HospitalIn the event this information is protected by the Federal Confidentiality of Alcohol and Drug Abuse Patient Records regulations: The Federal rules restrict any use of the information to criminally investigate or prosecute any alcohol or drug abuse patient.[facility] HospitalIn the event this information is protected by the Federal Confidentiality of Alcohol and Drug Abuse Patient Records regulations: The Federal rules restrict any use of the information to criminally investigate or prosecute any alcohol or drug abuse patient.[facility] HospitalIn the event this information is protected by the Federal Confidentiality of Alcohol and Drug Abuse Patient Records regulations: The Federal rules restrict any use of the information to criminally investigate or prosecute any alcohol or drug abuse patient.[facility] HospitalIn the event this information is protected by the Federal Confidentiality of Alcohol and Drug Abuse Patient Records regulations: The Federal rules restrict any use of the information to criminally investigate or prosecute any alcohol or drug abuse patient.[facility] HospitalIn the event this information is protected by the Federal Confidentiality of Alcohol and Drug Abuse Patient Records regulations: The Federal rules restrict any use of the information to criminally investigate or prosecute any alcohol or drug abuse patient.[facility] HospitalIn the event this information is protected by the Federal Confidentiality of Alcohol and Drug Abuse Patient Records regulations: The Federal rules restrict any use of the information to criminally investigate or prosecute any alcohol or drug abuse patient.[facility] HospitalIn the event this information is protected by the Federal Confidentiality of Alcohol and Drug Abuse Patient Records regulations: The Federal rules restrict any use of the information to criminally investigate or prosecute any alcohol or drug abuse patient.[facility] HospitalIn the event this information is protected by the Federal Confidentiality of Alcohol and Drug Abuse Patient Records regulations: The Federal rules restrict any use of the information to criminally investigate or prosecute any alcohol or drug abuse patient.[facility] HospitalIn the event this information is protected by the Federal Confidentiality of Alcohol and Drug Abuse Patient Records regulations: The Federal rules restrict any use of the information to criminally investigate or prosecute any alcohol or drug abuse patient.[facility] HospitalIn the event this information is protected by the Federal Confidentiality of Alcohol and Drug Abuse Patient Records regulations: The Federal rules restrict any use of the information to criminally investigate or prosecute any alcohol or drug abuse patient.[facility] HospitalIn the event this information is protected by the Federal Confidentiality of Alcohol and Drug Abuse Patient Records regulations: The Federal rules restrict any use of the information to criminally investigate or prosecute any alcohol or drug abuse patient.[facility] HospitalIn the event this information is protected by the Federal Confidentiality of Alcohol and Drug Abuse Patient Records regulations: The Federal rules restrict any use of the information to criminally investigate or prosecute any alcohol or drug abuse patient.[facility] HospitalIn the event this information is protected by the Federal Confidentiality of Alcohol and Drug Abuse Patient Records regulations: The Federal rules restrict any use of the information to criminally investigate or prosecute any alcohol or drug abuse patient.[facility] HospitalIn the event this information is protected by the Federal Confidentiality of Alcohol and Drug Abuse Patient Records regulations: The Federal rules restrict any use of the information to criminally investigate or prosecute any alcohol or drug abuse patient.[facility] HospitalIn the event this information is protected by the Federal Confidentiality of Alcohol and Drug Abuse Patient Records regulations: The Federal rules restrict any use of the information to criminally investigate or prosecute any alcohol or drug abuse patient.[facility] HospitalIn the event this information is protected by the Federal Confidentiality of Alcohol and Drug Abuse Patient Records regulations: The Federal rules restrict any use of the information to criminally investigate or prosecute any alcohol or drug abuse patient.[facility] HospitalIn the event this information is protected by the Federal Confidentiality of Alcohol and Drug Abuse Patient Records regulations: The Federal rules restrict any use of the information to criminally investigate or prosecute any alcohol or drug abuse patient.[facility] HospitalIn the event this information is protected by the Federal Confidentiality of Alcohol and Drug Abuse Patient Records regulations: The Federal rules restrict any use of the information to criminally investigate or prosecute any alcohol or drug abuse patient.[facility] HospitalIn the event this information is protected by the Federal Confidentiality of Alcohol and Drug Abuse Patient Records regulations: The Federal rules restrict any use of the information to criminally investigate or prosecute any alcohol or drug abuse patient.[facility] HospitalIn the event this information is protected by the Federal Confidentiality of Alcohol and Drug Abuse Patient Records regulations: The Federal rules restrict any use of the information to criminally investigate or prosecute any alcohol or drug abuse patient.[facility] HospitalIn the event this information is protected by the Federal Confidentiality of Alcohol and Drug Abuse Patient Records regulations: The Federal rules restrict any use of the information to criminally investigate or prosecute any alcohol or drug abuse patient.[facility] HospitalIn the event this information is protected by the Federal Confidentiality of Alcohol and Drug Abuse Patient Records regulations: The Federal rules restrict any use of the information to criminally investigate or prosecute any alcohol or drug abuse patient.[facility] HospitalIn the event this information is protected by the Federal Confidentiality of Alcohol and Drug Abuse Patient Records regulations: The Federal rules restrict any use of the information to criminally investigate or prosecute any alcohol or drug abuse patient.[facility] HospitalIn the event this information is protected by the Federal Confidentiality of Alcohol and Drug Abuse Patient Records regulations: The Federal rules restrict any use of the information to criminally investigate or prosecute any alcohol or drug abuse patient.[facility] HospitalIn the event this information is protected by the Federal Confidentiality of Alcohol and Drug Abuse Patient Records regulations: The Federal rules restrict any use of the information to criminally investigate or prosecute any alcohol or drug abuse patient.[facility] HospitalIn the event this information is protected by the Federal Confidentiality of Alcohol and Drug Abuse Patient Records regulations: The Federal rules restrict any use of the information to criminally investigate or prosecute any alcohol or drug abuse patient.[facility] HospitalIn the event this information is protected by the Federal Confidentiality of Alcohol and Drug Abuse Patient Records regulations: The Federal rules restrict any use of the information to criminally investigate or prosecute any alcohol or drug abuse patient.[facility] HospitalIn the event this information is protected by the Federal Confidentiality of Alcohol and Drug Abuse Patient Records regulations: The Federal rules restrict any use of the information to criminally investigate or prosecute any alcohol or drug abuse patient.[facility] HospitalIn the event this information is protected by the Federal Confidentiality of Alcohol and Drug Abuse Patient Records regulations: The Federal rules restrict any use of the information to criminally investigate or prosecute any alcohol or drug abuse patient.[facility] HospitalIn the event this information is protected by the Federal Confidentiality of Alcohol and Drug Abuse Patient Records regulations: The Federal rules restrict any use of the information to criminally investigate or prosecute any alcohol or drug abuse patient.[facility] HospitalIn the event this information is protected by the Federal Confidentiality of Alcohol and Drug Abuse Patient Records regulations: The Federal rules restrict any use of the information to criminally investigate or prosecute any alcohol or drug abuse patient.[facility] HospitalIn the event this information is protected by the Federal Confidentiality of Alcohol and Drug Abuse Patient Records regulations: The Federal rules restrict any use of the information to criminally investigate or prosecute any alcohol or drug abuse patient.[facility] HospitalIn the event this information is protected by the Federal Confidentiality of Alcohol and Drug Abuse Patient Records regulations: The Federal rules restrict any use of the information to criminally investigate or prosecute any alcohol or drug abuse patient.[facility] HospitalIn the event this information is protected by the Federal Confidentiality of Alcohol and Drug Abuse Patient Records regulations: The Federal rules restrict any use of the information to criminally investigate or prosecute any alcohol or drug abuse patient.[facility] HospitalIn the event this information is protected by the Federal Confidentiality of Alcohol and Drug Abuse Patient Records regulations: The Federal rules restrict any use of the information to criminally investigate or prosecute any alcohol or drug abuse patient.[facility] HospitalIn the event this information is protected by the Federal Confidentiality of Alcohol and Drug Abuse Patient Records regulations: The Federal rules restrict any use of the information to criminally investigate or prosecute any alcohol or drug abuse patient.[facility] HospitalIn the event this information is protected by the Federal Confidentiality of Alcohol and Drug Abuse Patient Records regulations: The Federal rules restrict any use of the information to criminally investigate or prosecute any alcohol or drug abuse patient.[facility] HospitalIn the event this information is protected by the Federal Confidentiality of Alcohol and Drug Abuse Patient Records regulations: The Federal rules restrict any use of the information to criminally investigate or prosecute any alcohol or drug abuse patient.[facility] HospitalIn the event this information is protected by the Federal Confidentiality of Alcohol and Drug Abuse Patient Records regulations: The Federal rules restrict any use of the information to criminally investigate or prosecute any alcohol or drug abuse patient.[facility] HospitalIn the event this information is protected by the Federal Confidentiality of Alcohol and Drug Abuse Patient Records regulations: The Federal rules restrict any use of the information to criminally investigate or prosecute any alcohol or drug abuse patient.[facility] HospitalIn the event this information is protected by the Federal Confidentiality of Alcohol and Drug Abuse Patient Records regulations: The Federal rules restrict any use of the information to criminally investigate or prosecute any alcohol or drug abuse patient.[facility] HospitalIn the event this information is protected by the Federal Confidentiality of Alcohol and Drug Abuse Patient Records regulations: The Federal rules restrict any use of the information to criminally investigate or prosecute any alcohol or drug abuse patient.[facility] HospitalIn the event this information is protected by the Federal Confidentiality of Alcohol and Drug Abuse Patient Records regulations: The Federal rules restrict any use of the information to criminally investigate or prosecute any alcohol or drug abuse patient.[facility] HospitalIn the event this information is protected by the Federal Confidentiality of Alcohol and Drug Abuse Patient Records regulations: The Federal rules restrict any use of the information to criminally investigate or prosecute any alcohol or drug abuse patient.[facility] HospitalIn the event this information is protected by the Federal Confidentiality of Alcohol and Drug Abuse Patient Records regulations: The Federal rules restrict any use of the information to criminally investigate or prosecute any alcohol or drug abuse patient.[facility] HospitalIn the event this information is protected by the Federal Confidentiality of Alcohol and Drug Abuse Patient Records regulations: The Federal rules restrict any use of the information to criminally investigate or prosecute any alcohol or drug abuse patient.[facility] HospitalIn the event this information is protected by the Federal Confidentiality of Alcohol and Drug Abuse Patient Records regulations: The Federal rules restrict any use of the information to criminally investigate or prosecute any alcohol or drug abuse patient.[facility] HospitalIn the event this information is protected by the Federal Confidentiality of Alcohol and Drug Abuse Patient Records regulations: The Federal rules restrict any use of the information to criminally investigate or prosecute any alcohol or drug abuse patient.[facility] Care Teams (unrecognized sec tion and content) Team MemberRelationshipSpecialtyStart DateEnd Date Humaira Gaviria MD [address] [place] [address] PCP - GeneralInternal Medicine07/05/18 [place] [address] [place], [place] [address] Primary Staff PhysicianCardiology07/16/18Team MemberRelationshipSpecialtyStart DateEnd Date Humaira Gaviria MD [address] [place], [place] [id number] PCP - GeneralInternal Medicine07/05/18 Jonny Wilcox MD [address] [facility] [place] [id number] Primary Staff PhysicianCardiology07/16/18Team MemberRelationshipSpecialtyStart DateEnd Date Humaira Gaviria MD [address] [place] [address] PCP - GeneralInternal Medicine07/05/18 Jonny Wilcox MD [address] [place] [address] Primary Staff PhysicianCardiology07/16/18Team MemberRelationshipSpecialtyStart DateEnd Date Humaira Gaviria MD [address] [place] [address] PCP - GeneralInternal Medicine07/05/18 Jonny Wilcox MD [address] [place] [address] Primary Staff PhysicianCardiology07/16/18Team MemberRelationshipSpecialtyStart DateEnd Date Humaira Gaviria MD [address] [facility] [address] PCP - GeneralInternal Medicine07/05/18 Jonny Wilcox MD [address] [place] [address] Primary Staff PhysicianCardiology07/16/18 [place] [address] [place] [address] PhysicianHematology/Oncology09/14/21 Davida Restrepo, RN [address] [place] [address] Specialty Care CoordinatorHematology/Oncology09/14/21Team MemberRelationship SpecialtyStart DateEnd Date [place] [address] PCP - GeneralFamily Medicine10/04/20Team MemberRelationshipSpecialtyStart DateEnd Date Humaira Gaviria MD [address] [facility] [place] [address] PCP - GeneralInternal Medicine07/05/18 Jonny Wilcox MD [address] [place] [address] Primary Staff PhysicianCardiology07/16/18 [place] [address] [place] [address] PhysicianHematology/Oncology09/14/21 Davida Restrepo, RN [address] [place] [address] Specialty Care CoordinatorHematology/Oncology09/14/21Team MemberRelationship SpecialtyStart DateEnd Date Penelope Casas, [address] [place] [address] PCP - [facility] Siazhcac82/3/22 Jonny Wilcox MD [address] [place] [address] Primary Staff PhysicianCardiology07/16/18 [place] [address] [place] [address] PhysicianHematology/Oncology09/14/21 Davida Restrepo RN [address] [place] [address] Specialty Care CoordinatorHematology/Oncology09/14/21Te MemberRelationship SpecialtyStart DateEnd Date Penelope Casas, [address] [place] [address] PCP - [facility] Jzlmhpwx27/3/22 Jonny Wilcox MD [address] [place] [address] Primary Staff PhysicianCardiology07/16/18 [place] [address] [place] [address] PhysicianHematology/Oncology09/14/21 Davida Restrepo, RN [address] [place] [address] Specialty Care CoordinatorHematology/Oncology09/14/21Te MemberRelationship SpecialtyStart DateEnd Date Penelope Casas DO [address] [place] [address] PCP - GeneralFamily Uylkahkw53/3/22 Jonny Wilcox MD [address] [place] [address] Primary Staff PhysicianCardiology07/16/18 [place] [address] [place] [address] PhysicianHematology/Oncology09/14/21 Davida Restrepo, RN [address] [place] [address] Specialty Care CoordinatorHematology/Oncology09/14/21Team MemberRelationship SpecialtyStart DateEnd Date Penelope Casas, DO [address] [facility] [place] [address] [facility] Jnnhbpur22/3/22 Jonny Wilcox MD [address] [place] [address] Primary Staff PhysicianCardiology07/16/18 [place] [address] [place] [address] PhysicianHematology/Oncology09/14/21 Davida Restrepo, RN [address] [place] [address] Specialty Care CoordinatorHematology/Oncology09/14/21Team MemberRelationship SpecialtyStart DateEnd Date Penelope Casas, DO [address] [facility] [facility] [place] [address] PCP - Generalmily Musqmfrk54/3/22 Jonny Wilcox MD [address] [place] [address] Primary Staff PhysicianCardiology07/16/18 [place] [address] [place] [address] PhysicianHematology/Oncology09/14/21 Davida Restrepo, RN [address] [place] [address] Specialty Care CoordinatorHematology/Oncology09/14/21Team MemberRelationship SpecialtyStart DateEnd Date Penelope Casas, DO [address] [facility] [place] [address] PCP - Generalmily Meekzrwy55/3/22 Jonny Wilcox MD [address] [place] [address] Primary Staff PhysicianCardiology07/16/18 [place] [address] [place] [address] PhysicianHematology/Oncology09/14/21 Davida Restrepo, RN [address] [place] [address] Specialty Care CoordinatorHematology/Oncology09/14/21Te MemberRelationship SpecialtyStart DateEnd Date Penelope Casas, DO [address] [facility] [place] [address] PCP - Generalmily Ygqgboic18/3/22 Jonny Wilcox MD [address] [place] [address] Primary Staff PhysicianCardiology07/16/18 [place] [address] [place] [address] PhysicianHematology/Oncology09/14/21 Davida Restrepo, RN [address] [place] [address] Specialty Care CoordinatorHematology/Oncology09/14/21Team MemberRelationship SpecialtyStart DateEnd Date Penelope Casas DO [address] [place] [address] PCP - [facility] Iidgziaw73/3/22 Jonny Wilcox MD [address] [place] [address] Primary Staff PhysicianCardiology07/16/18 [place] [address] [place] [address] PhysicianHematology/Oncology09/14/21 Davida Restrepo RN [address] [place] [address] Specialty Care CoordinatorHematology/Oncology09/14/21Te MemberRelationship SpecialtyStart DateEnd Date Penelope Casas DO [address] [place] [address] PCP - [facility] Dqyirblq53/3/22 Jonny Wilcox MD [address] [place] [address] Primary Staff PhysicianCardiology07/16/18 [place] [address] [place] [address] PhysicianHematology/Oncology09/14/21 Davida Restrepo, RN [address] [place] [address] Specialty Care CoordinatorHematology/Oncology09/14/21Te MemberRelationship SpecialtyStart DateEnd Date Penelope Casas DO [address] [place] [address] PCP - GeneralFamily Xkutinjo12/3/22 Jonny Wilcox MD [address] [place] [address] Primary Staff PhysicianCardiology07/16/18 [place] [address] [place] [address] PhysicianHematology/Oncology09/14/21 Davida Restrepo, RN [address] [place] [address] Specialty Care CoordinatorHematology/Oncology09/14/21Team MemberRelationship SpecialtyStart DateEnd Date Penelope Casas DO [address] [place] [address] PCP - GeneralFamily Qczfgnfv79/3/22 Jonny Wilcox MD [address] [place] [address] Primary Staff PhysicianCardiology07/16/18 [place] [address] [place] [address] PhysicianHematology/Oncology09/14/21 Davida Restrepo RN [address] [place] [address] Specialty Care CoordinatorHematology/Oncology09/14/21Team MemberRelationship SpecialtyStart DateEnd Date Penelope Casas DO [address] [place] [address] PCP - GeneralFamily Bkzithqu52/3/22 Jonny Wilcox MD [address] [place] [address] Primary Staff PhysicianCardiology07/16/18 [place] [address] [place] [address] PhysicianHematology/Oncology09/14/21 Davida Restrepo RN [address] [place] [address] Specialty Care CoordinatorHematology/Oncology09/14/21Team MemberRelationship SpecialtyStart DateEnd Date Penelope Casas DO [address] [facility] [place] [address] PCP - Generalmily Mqrklimi58/3/22 Jonny Wilcox MD [address] [facility] [place] [address] Primary Staff PhysicianCardiology07/16/18 [place] [address] [place] [address] PhysicianHematology/Oncology09/14/21 Davida Restrepo RN [address] [place] [address] Specialty Care CoordinatorHematology/Oncology09/14/21Team MemberRelationship SpecialtyStart DateEnd Date Penelope Casas DO [address] [place] [address] PCP - GeneralFamily Hhhqocvb34/3/22 Jonny Wilcox MD [address] [place] [address] Primary Staff PhysicianCardiology07/16/18 [place] [address] [place] [address] PhysicianHematology/Oncology09/14/21 Davida Restrepo RN [address] [place] [address] Specialty Care CoordinatorHematology/Oncology09/14/21Team MemberRelationship SpecialtyStart DateEnd Date Penelope Casas DO [address] [place] [address] PCP - GeneralFamily Qivnqbnn56/3/22 Jonny Wilcox MD [address] [place] [address] Primary Staff PhysicianCardiology07/16/18 [place] [address] [place] [address] PhysicianHematology/Oncology09/14/21 Davida Restrepo RN [address] [place] [address] Specialty Care CoordinatorHematology/Oncology09/14/21Team MemberRelationship SpecialtyStart DateEnd Date Penelope Casas DO [address] [place] [place] [address] PCP - GeneralFamily Pwjgzpal58/3/22 Jonny Wilcox MD [address] [place] [address] Primary Staff PhysicianCardiology07/16/18 [place] [address] [place] [address] PhysicianHematology/Oncology09/14/21 Davida Restrepo, RN [address] [place] [address] Specialty Care CoordinatorHematology/Oncology09/14/21Team MemberRelationship SpecialtyStart DateEnd Date Penelope Casas DO [address] [facility] [address] [facility] [place] [address] PCP - Generalmi Gyiebvpc88/3/22 Jonny Wilcox MD [address] [place] [address] Primary Staff PhysicianCardiology07/16/18 [place] [address] [place] [address] PhysicianHematology/Oncology09/14/21 Davida Restrepo, RN [address] [place] [address] Specialty Care CoordinatorHematology/Oncology09/14/21Te MemberRelationship SpecialtyStart DateEnd Date Penelope Casas DO [address] [facility] [place] [address] PCP - GeneralFamily Qirufvwc10/3/22 Jonny Wilcox MD [address] [place] [address] Primary Staff PhysicianCardiology07/16/18 [place] [address] [place] [address] PhysicianHematology/Oncology09/14/21 Davida Restrepo RN [address] [place] [address] Specialty Care CoordinatorHematology/Oncology09/14/21Team MemberRelationship SpecialtyStart DateEnd Date Penelope Casas DO [address] [place] [address] PCP - GeneralFamily Rttyyylm88/3/22 Jonny Wilcox MD [address] [place] [address] Primary Staff PhysicianCardiology07/16/18 [place] [address] [place] [address] PhysicianHematology/Oncology09/14/21 Davida Restrepo RN [address] [place] [address] Specialty Care CoordinatorHematology/Oncology09/14/21Te MemberRelationship SpecialtyStart DateEnd Date Penelope Casas DO [address] [place] [address] PCP - GeneralFamily Cyynjdxj47/3/22 Jonny Wilcox MD [address] [place] [address] Primary Staff PhysicianCardiology07/16/18 [place] [address] [place] [address] PhysicianHematology/Oncology09/14/21 Davida Restrepo RN [address] [place], [place] [address] Specialty Care CoordinatorHematology/Oncology09/14/21Team MemberRelationship SpecialtyStart DateEnd Date Penelope Casas DO [address] [facility] [place] [address] PCP - Generalmily Xoupohgz57/3/22 Jonny Wilcox MD [address] [place] [address] Primary Staff PhysicianCardiology07/16/18 [place] [address] [place] [address] PhysicianHematology/Oncology09/14/21 Davida Restrepo RN [address] [place] [address] Specialty Care CoordinatorHematology/Oncology09/14/21Te MemberRelationship SpecialtyStart DateEnd Date Penelope Casas DO [address] [facility] [place] [address] PCP - Generalmily Exsojkme86/3/22 Jonny Wilcox MD [address] [place] [address] Primary Staff PhysicianCardiology07/16/18 [place] [address] [place] [address] PhysicianHematology/Oncology09/14/21 Davida Restrepo RN [address] [place] [address] Specialty Care CoordinatorHematology/Oncology09/14/21Team MemberRelationship SpecialtyStart DateEnd Date Penelope Casas DO [address] [place] [address] PCP - GeneralFamily Ljlhrdnv87/3/22 Jonny Wilcox MD [address] [place] [address] Primary Staff PhysicianCardiology07/16/18 [place] [address] [place] [address] PhysicianHematology/Oncology09/14/21 Davida Restrepo RN [address] [place] [address] Specialty Care CoordinatorHematology/Oncology09/14/21Te MemberRelationship SpecialtyStart DateEnd Date Penelope Casas DO [address] [place] [address] PCP - [facility] Mzeeojnd71/3/22 Jonny Wilcox MD [address] [place] [address] Primary Staff PhysicianCardiology07/16/18 [place] [address] [place] [address] PhysicianHematology/Oncology09/14/21 Davida Restrepo RN [address] [place] [address] Specialty Care CoordinatorHematology/Oncology09/14/21Team MemberRelationship SpecialtyStart DateEnd Date Penelope Casas MD [address] [place] [address] PCP - [facility] Medicine11/07/23Team MemberRelationshipSpecialtyStart DateEnd Date Penelope Casas MD [address] [place] [place] [address] PCP - [facility] Medicine11/07/23Team MemberRelationshipSpecialtyStart DateEnd Date Penelope Casas MD [address] [place] [place] [address] PCP - [facility] Medicine11/07/23Team MemberRelationshipSpecialtyStart DateEnd Date Penelope Casas MD [address] [place] [address] PCP - [facility] Medicine11/07/23Team MemberRelationshipSpecialtyStart DateEnd Date Penelope Casas MD [address] [place] [address] PCP - [facility] Medicine11/07/23 Team Status: Inactive Member Role Status Dates Wilton Herrmann DO Attending Provider Active Start : May 10, 2024 End: May 10, 2024Team MemberRelationshipSpecialtyStart DateEnd Date Penelope Casas DO [address] [address] PCP - GeneralFamily Icfakbpw06/3/22 Jonny Wilcox MD [address] [place] [address] Primary Staff PhysicianCardiology07/16/18 [place] [address] [address] [place] [address] PhysicianHematology/Oncology09/14/21 Davida Restrepo, RN [address] [place] [address] Specialty Care CoordinatorHematology/Oncology09/14/21Team MemberRelationship SpecialtyStart DateEnd Date Penelope Casas MD [address] [place] [address] PCP - GeneralFamily Medicine11/07/23Team MemberRelationshipSpecialtyStart DateEnd Date Penelope Casas MD [address] [place] [address] PCP - GeneralFamily Medicine11/07/23Team MemberRelationshipSpecialtyStart DateEnd Date Penelope Casas MD [address] [place] [address] PCP - GeneralFamily Medicine11/07/23Team MemberRelationshipSpecialtyStart DateEnd Date Penelope Casas MD [address] [place] [address] PCP - GeneralFamily Medicine11/07/23Team MemberRelationshipSpecialtyStart DateEnd Date Penelope Casas DO [address] [place] [address] PCP - GeneralFamily Nndvkaow34/3/22 Jonny Wilcox MD [address] [facility] [place] [address] Primary Staff PhysicianCardiology07/16/18 [place] [address] [place] [address] PhysicianHematology/Oncology09/14/21 Davida Restrepo, MARSHA [address] [place] [address] Specialty Care CoordinatorHematology/Oncology09/14/21Team MemberRelationship SpecialtyStart DateEnd Date Penelope Casas MD [address] [place] [address] PCP - GeneralFamily Medicine11/07/23Team MemberRelationshipSpecialtyStart DateEnd Date Penelope Casas MD [address] [place] [address] PCP - GeneralFamily Medicine11/07/23Team MemberRelationshipSpecialtyStart DateEnd Date Penelope Casas DO PCP - GeneralFamily Medicine07/07/19Team MemberRelationshipSpecialtyStart DateEnd Date Penelope Casas DO PCP - GeneralFamily Medicine07/07/19Team MemberRelationshipSpecialtyStart DateEnd Date Penelope Casas MD [address] [place] [address] PCP - GeneralFamily Medicine11/07/23Team MemberRelationshipSpecialtyStart DateEnd Date Penelope Casas DO PCP - GeneralFamily Medicine07/07/19Team MemberRelationshipSpecialtyStart DateEnd Date Penelope Casas DO PCP - GeneralFamily Medicine07/07/19Team MemberRelationshipSpecialtyStart DateEnd Date Penelope Casas DO [address] [place] [address] [facility] - [facility]ly Otafezzc12/3/22 Jonny Wilcox MD [address] [place] [address] Primary Staff PhysicianCardiology07/16/18 [place] [address] [place] [address] PhysicianHematology/Oncology09/14/21 Davida Restrepo, RN [address] [place] [address] Specialty Care CoordinatorHematology/Oncology09/14/21Team MemberRelationship SpecialtyStart DateEnd Date Penelope Casas DO PCP - Generalmily Medicine07/07/19Team MemberRelationshipSpecialtyStart DateEnd Date Penelope Casas MD [address] [place] [address] PCP - Generalmily Medicine11/07/23Team MemberRelationshipSpecialtyStart DateEnd Date Penelope Casas MD [address] [place] [address] PCP - Generalmily Medicine11/07/23Team MemberRelationshipSpecialtyStart DateEnd Date Penelope Casas DO PCP - GeneralFamily Medicine07/07/19Team MemberRelationshipSpecialtyStart DateEnd Date Penelope Casas DO PCP - Generalmily Medicine07/07/19Team MemberRelationshipSpecialtyStart DateEnd Date Penelope Casas MD [address] [facility] [place] [address] PCP - Generalmily Medicine11/07/23Team MemberRelationshipSpecialtyStart DateEnd Date Penelope Casas MD [address] [facility] [place] [address] PCP - Generalmily Medicine11/07/23Team MemberRelationshipSpecialtyStart DateEnd Date Penelope Casas DO PCP - Generalmily Medicine07/07/19Team MemberRelationshipSpecialtyStart DateEnd Date Penelope Casas DO [address] [facility] [address] PCP - GeneralFamily Qwifouub63/3/22 Jonny Wilcox MD [address] [place] [address] Primary Staff PhysicianCardiology07/16/18 [place] [address] [place], [place] [address] PhysicianHematology/Oncology09/14/21 Davida Restrepo, RN [address] [place] [address] Specialty Care CoordinatorHematology/Oncology09/14/21Team MemberRelationship SpecialtyStart DateEnd Date Penelope Casas DO PCP - GeneralFamily Medicine07/07/19Team MemberRelationshipSpecialtyStart DateEnd Date Penelope Casas DO PCP - GeneralFamily Medicine07/07/19Team MemberRelationshipSpecialtyStart DateEnd Date Penelope Casas DO PCP - GeneralFamily Medicine07/07/19Team MemberRelationshipSpecialtyStart DateEnd Date Penelope Casas DO PCP - GeneralFamily Medicine07/07/19Team MemberRelationshipSpecialtyStart DateEnd Date Penelope Casas DO PCP - GeneralFamily Medicine07/07/19Team MemberRelationshipSpecialtyStart DateEnd Date Penelope Casas MD [address] [place], [place] [address]ta[address] [place] [address] PCP - GeneralFamily Medicine11/07/23Team MemberRelationshipSpecialtyStart DateEnd Date Penelope Casas DO PCP - GeneralFamily Medicine07/07/19Team MemberRelationshipSpecialtyStart DateEnd Date Penelope Casas DO PCP - GeneralFamily Medicine07/07/19am MemberRelationshipSpecialtyStart DateEnd Date Penelope Casas DO PCP - GeneralFamily Medicine07/07/19am MemberRelationshipSpecialtyStart DateEnd Date Penelope Casas MD [address] [place] [address] PCP - GeneralFamily Medicine11/07/23Team MemberRelationshipSpecialtyStart DateEnd Date Penelope Casas DO PCP - Generalmily Medicine07/07/19am MemberRelationshipSpecialtyStart DateEnd Date Penelope Casas DO PCP - GeneralFamily Medicine07/07/19Team MemberRelationshipSpecialtyStart DateEnd Date Penelope Casas MD [address] [place] [address] PCP - GeneralFamily Medicine11/07/23Team MemberRelationshipSpecialtyStart DateEnd Date Penelope Casas MD [address] [place] [address] PCP - GeneralFamily Medicine11/07/23Team MemberRelationshipSpecialtyStart DateEnd Date Penelope Casas MD [address] [place] [address] PCP - [facility]11/07/23Team MemberRelationshipSpecialtyStart DateEnd Date Penelope Casas MD [address] [place] [facility] [place] [address] PCP - [facility]11/07/23Team MemberRelationshipSpecialtyStart DateEnd Date Penelope Casas MD [address] [place] [address] PCP - [facility]11/07/23Team MemberRelationshipSpecialtyStart DateEnd Date Penelope Casas MD [address] [place] [address] PCP - [facility]11/07/23Team MemberRelationshipSpecialtyStart DateEnd Date Penelope Casas MD [address] [place] [address] PCP - [facility]11/07/23 Reason for Visit (unrecogniz ed section and content) ReasonCommentsFuture AppointmentReasonCommentsPatient QuestionReasonComments Medication QuestionReasonOnset DateCommentsRefill Jwuxros09/13/2022ReasonOnset DateCommentsRefill Erprytq35/02/2022ReasonCommentsHypercoagulable state6 month follow upReasonCommentsPrimary hypercoagulable state8 week follow upReason CommentsResultsReasonCommentsAppointmentPatient QuestionMedication Question OrdersSpecialtyDiagnoses / ProceduresReferred By ContactReferred To Contact Diagnoses Iron deficiency anemia secondary to blood loss (chronic) Iron deficiency anemia of Procedures INJECTION, FERRIC DERISOMALTOSE, 10 MG Kristofer Calix MD [address] [place] [address] [place] [address] [address] [place] [address] Referral IDStatusReasonStart DateExpiration DateVisits RequestedVisits [id number]/7/20221/[id number] Request SpecialtyDiagnoses / ProceduresReferred By ContactReferred To Contact Diagnoses Iron deficiency anemia secondary to blood loss (chronic) Iron deficiency anemia of Procedures IRON SUCROSE INJECTION PER 1 MG Kristofer Calix MD [address] [place] [address] [place] [address] [address] [place] [id number] Referral IDStatusReasonStmossyrock DateExpiration DateVisits RequestedVisits [id number]/28/20221/[id number] DateCommentsRefill Mduyjbd8307/03/2022ReasonCommentsAnemiaFollow upReasonCommentsOrdersReason CommentsEstablished PatientReasonCommentsAppointmentReasonCommentsLab Orders ReasonCommentsPrimary hypercoagulable state (HCC)Follow upReasonComments Appointment RescheduledSpecialtyDiagnoses / ProceduresReferred By Contact Referred To Contact Diagnoses Iron deficiency anemia of Iron deficiency anemia secondary to blood loss (chronic) Procedures IRON SUCROSE INJECTION PER 1 MG Kristofer Calix MD [address] [place] [address] [place] [address] [address] [place] [address] Referral IDStatusReasonStart DateExpiration DateVisits RequestedVisits [id number]/8/20241/[id number] DateCommentsRefill Ibmkkrh0511/29/2023easonCommentsAmenorrheaReasonOnset DateCommentsRefill Request 4ReasonCommentsRoutine VisitReasonCommentsPatient UpdateReason CommentsAnemiafollowupReasonCommentsfollow up miscarriageReasonCommentsVaginal BleedingDizzinessReasonCommentsIrregular CyclesReasonOnset DateCommentsRefill Yqnjfvs1007/25/2024ReasonOnset DateCommentsRefill Aqnuegu2410/20/2024ReasonOnset DateCommentsRefill Woebxog9310/29/2024ReasonCommentsGestational DiabetesSpecialty Diagnoses / ProceduresReferred By ContactReferred To ContactMaternal and Medicine Diagnoses Gestational diabetes mellitus (GDM), antepartum, gestational diabetes method of control unspecified Wilton Herrmann, DO [address] [place] [address] [place] [address] Phone: tel: fax: Maternal- Medicine at [address] [address] Phone: tel: fax: Referral IDStatusReasonStart DateExpiration DateVisits RequestedVisits [id number] Review Specialty Services Required /[id number]sicug stateAnemia8 week follow up ReasonCommentsMFM consultReasonCommentsRoutine VisitReasonComments [...] BE BASED ON THE PRIMARY CLINICAL RECORDS. [facility] [employer] [facility]. provides no warranty or guarantee of the accuracy or completeness of information in this document.
[2025-03-09 18:25] VITALS: BP 112/69; PULSE 80
== END 2025-03-09 18:49 | disposition home or self-care (01) ==
LOC: FBCO 18:18 → FBC 18:18
PROVIDERS: Visit Provider Obstetrics & Gynecology
DX: O24.419 Gestational diabetes mellitus in pregnancy, unspecified control (principal); Z3A.32 32 weeks gestation of pregnancy
CPT/HCPCS: 59025

== ENCOUNTER 2025-03-12 19:07 | Outpatient (OUT) | payer MEDICAID, SELFPAY ==
--- OUTSIDE RECORDS SUMMARY | 2025-03-02 11:30 | XMS_ITS | Encounter Summary ---
Author Organization [facility] Address [address] [place] [address] Care Team Providers Care Test Tech Name Role Phone Jonny Wilcox MD Unavailable [phone] Cosmo Elliott MD Unavailable [phone] Davida Restrepo RN Unavailable [phone] Evans Casas DO Primary Care Provider [phone] Source Comments In the event this information is protected by the Federal Confidentiality of Alcohol and Drug AbusePatient Records regulations: The Federal rules restrict any use of the information to criminally investigate or prosecute any alcohol or drug abuse patient.[facility] Reason for Visit * ReasonCommentsEstablished Patient Encounter Details DateTypeDepartmentCare Team (Latest Contact Info)Rrlsiveylkx73/03/2025 11:30 AM ESTVisit (SP) Office Hematology/Oncology [address] [place] [address] 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 APRN.[employer]ER FIRST [address] [place] [address] Antiphospholipid antibody positive (Primary Dx); Iron [...] drink = 0.6 oz pure alcohol)PHQ-2AnswerDate RecordedPHQ-2 [id number] Deprivation Index AnswerDate RecordedNational Score (1-100), lower number is lower risk58 09/28/2022State Score (1-10), lower number is lower [id number] from: https://www.neighborhoodatlas.[facility].edu/. Last address used for uddewzbincd03 [facility]3Estimated Date of DeliveryCommentsYes 07/28/2024Sex and Gender InformationValueDate RecordedSex Assigned at BirthNot on fileLegal XdjLhwzxo55/29/2018 10:06 AM ESTGender IdentityNot on fileSexual OrientationNot on fileOccupationIndustryJob Start DateJob End Datestay at home momNot on fileNot on fileNot on filedocumented as of this encounter Last Filed Vital Signs Vital SignReadingTime TakenCommentsBlood Sqnqtxxk705/7911 11:56 AM EST Tdpsg010903/02/2025 11:56 AM AOOHluludmyalu40.2 ??C (97.2 ??F)03/02/2025 11:56 AM ESTRespiratory Wgta127905/02/2024 11:56 AM ESTOxygen Iihrtoltxp46%03/02/2025 11:56 AM ESTInhaled Oxygen Concentration--Ygcjsj52.2 kg (214 lb 4.6 oz)03/02/2025 11:56 AM ESTHeight--Body Mass Index34.5608 11:34 AM EDTdocumented in this encounter Progress Notes * 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 APRN.[employer] - 03/02/2025 12:07 PM EST Images from the original note were not included. NAME: Sanna Bone CLINIC NO.: [id number] DATE OF SERVICE: March 02, 2025 (Arsh) [...] later in 2018. These were found in [place], [place]. I don't have access to these [...] a target-like rash shortly before presenting to 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 When she hada stroke in [place], she had symptoms up to a month [...] and at age 69. Both lived in [facility] but she was adopted. She was [...] and was seen with severe headaches in [place], [place] - was found to have a [...] goes back to January 2016 in [facility] where she had persisting headaches and slurred speech followed by lower extremity weakness. This took a few months to resolve and she is back to her normal state of being but some point in time during her her next she was seen by Dr. Pascual Hyde in [place] as well and was found to have [...] which included preparing to see the patient, kinc-oj-yozo patient care, completing clinical documentation, obtaining and/or reviewing separately obtained history, performing a medically appropriate examination, counseling and educating the pat ient/family/caregiver, ordering medications, tests, or procedures, independently interpreting results (not separately reported), and communicating results to the patient/family/caregiver. 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 APRN.TOR Hematology and Oncology Services Provided at: [place], [place] CC: MD Wilton Day, [address] [place] [address] Humaira Gaviria MD [address] [place] [id number] MD Cosmo Kingston MD Michael [place], MD documented in this encounter Plan of Treatment DateTypeDepartmentCare Team (Latest Contact Info)Kurivvuumuz34/01/2025 8:00 AM ESTOffice Visit [facility] [address] [place] [address] [place] [address] Return in 4 weeks lab and possible iron03/30/2025 8:20 AM ESTVisit (SP) Office Hematology/Oncology [address] [place] [address] Salvador Dos Santos MD [address] [place] [address] [place] [address] Return in 4 weeks lab and possible iron03/30/2025 8:30 AM ESTInfusion Center Hematology/Oncology [address] [place] [address] [place] [address] Return in 4 weeks lab and possible [...] Evans Casas DO [address] [place] [address] PCP - GeneralFamily Xxkbsqpw41/3/22 Jonny Wilcox MD [address] [place] [address] Primary Staff PhysicianCardiology07/16/18 [place] [address] [place] [address] PhysicianHematology/Oncology09/14/21 Davida Restrepo, RN [address] [place], [place] [id number] Specialty Care CoordinatorHematology/Oncology09/14/21documented as of this encounter
--- OUTSIDE RECORDS SUMMARY | 2025-03-10 09:50 | XMS_ITS | Encounter Summary ---
Author Organization [facility] Address [address] [place] [address] Care Team Providers Care [employer] Distributor Name Role Phone Evans Casas MD Primary Care Provider [phone] Reason for Visit * ReasonCommentsRoutine Visit Encounter Details DateTypeDepartmentCare Team (Latest Contact Info)Rtdfwjsksuw80/11/2025 9:50 AM ESTRoutine [facility] [place] [facility] [address] [place] [address] Wilton Herrmann DO [address] [place] [id number] 32 weeks gestation of ([facility]); Third trimester ([facility]); Anemia complicating childbirth ([facility]); Anticoagulant long-term use; Antiphospholipid antibody positive; Blood pressure elevated without history of HTN; Coagulation defect, unspecified ([facility]); Antiphospholipid antibody syndrome ([facility]); Thyroid disease; Multigravida of advanced maternal age in third trimester ([facility]) Social History Tobacco UseTypesPacks/DayYears UsedDateSmoking Tobacco: NeverSmokeless Tobacco: NeverAlcohol UseStandard Drinks/WeekCommentsNever0 (1 standard drink = 0.6 oz pure alcohol)PHQ-2AnswerDate RecordedPatient Health Questionnaire-2 Score0 03/03/2025Estimated Date of YwbzkainElqigqjaYza50/05/2026ased on last menstrual period of 07/28/2024Sex and Gender InformationValueDate RecordedSex Assigned at BirthNot on fileLegal HtrKzsyfw53/15/2023 11:19 PM EDTGender IdentityNot on fileSexual OrientationNot on filedocumented as of this encounter Last Filed Vital Signs Vital SignReadingTime TakenCommentsBlood Tnnnmoiw324/7011 10:01 AM EST Pulse--Temperature--Respiratory Rate--Oxygen Saturation--Inhaled Oxygen Concentration--Phhlkw96.6 kg (210 lb 12.8 oz)03/10/2025 10:01 AM ESTHeight--Body Mass Index34.0207 1:48 PM EDTdocumented in this encounter Progress Notes * Pamelamo Walter, DEB - 03/10/2025 9:50 AM EST Reason for Appointment: Patient ID: Sanna Bone [...] Diagnosis Date Noted 32 weeks gestation of ([facility]) 11/28/2019 Abdominal pain 06/12/2023 Acute bronchitis due to infection 06/12/2023 Acute on chronic vesicular eczema of hands and feet 11/15/2023 Anemia complicating childbirth ([facility]) 01/16/2020 Anticoagulant long-term use 02/22/2020 Antiphospholipid antibody positive 09/10/2017 Antiphospholipid antibody syndrome ([facility]) 07/07/2019 Anxiety 06/12/2023 Blood pressure elevated without history of HTN 11/15/2023 BMI 37.0-37.9, adult 11/15/2023 Cerebral infarction, unspecified ([facility]) 05/16/2019 Cerebrovascular accident (CVA) due to stenosis of middle cerebral artery ([facility]) 02/22/2020 Cervicalgia 02/05/2019 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 ([facility]) 01/08/2020 Coagulation defect, unspecified ([facility]) 02/05/2019 Cold intolerance 11/15/2023 Deficiency of other specified B group vitamins 05/16/2019 Deviated septum 11/15/2023 Dizziness and giddiness 02/05/2019 Dry mouth 11/15/2023 Dysfunction of eustachian tube 06/12/2023 Dyspnea 06/12/2023 Elevated blood pressure reading 11/15/2023 Encounter for supervision of normal , unspecified, first trimester ([facility]) 05/29/2019 Environmental allergies 11/15/2023 Fatigue 12/29/2016 First degree perineal laceration during delivery ([facility]) 01/16/2020 Frequency of micturition 02/19/2019 Genitourinary symptoms 08/19/2021 Gestational diabetes mellitus (GDM), antepartum ([facility]) 01/26/2022 H/O: hypothyroidism 11/15/2023 Hematochezia 06/12/2023 History [...] anemia 01/16/2020 Irregular uterine bleeding 11/15/2023 problem ([facility]) 06/12/2023 Less than 8 weeks gestation of ([facility]) 06/05/2019 alf (current) use of 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/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 02/05/2019 Migraine without aura and without status migrainosus, not intractable 09/12/2017 Morbid obesity ([facility]) 11/15/2023 Muscle fasciculation 08/19/2021 Nasal polyps 11/15/2023 Non-smoker 11/15/2023 NEETA (obstructive sleep apnea) 11/15/2023 Other acute postprocedural pain 02/03/2019 Other general symptoms and signs 10/28/2019 Other immediate hemorrhage ([facility]) 01/16/2020 Other specified noninflammatory disorders of vagina 02/21/2019 Pain in joint 12/29/2016 Palpitations 08/26/2019 Paresthesia of bilateral legs 11/15/2023 Pelvic and perineal pain 02/01/2019 Personal history of urinary (tract) infections 01/16/2020 Pre-diabetes 11/15/2023 Primary hypercoagulable state ([facility]) 08/01/2022 Pruritus, unspecified 01/02/2020 Psychogenic hyperventilation 06/12/2023 Raised antibody titer 09/25/2017 Right lower quadrant pain 11/15/2023 Right otitis externa 11/15/2023 Salivary gland swelling 11/15/2023 Single live ([facility]) 01/15/2020 Snoring 11/15/2023 Speech and language deficit [...] drainage of cyst WISDOM TOOTH EXTRACTION 2007 [place] teeth REVIEW OF SYSTEMS Review of Systems: [...] nursing note reviewed. Exam conducted with a cooler tender present. Vitals: Estimated body mass index is 34.02 kg/m?? as calculated from the following: Height as of 11/19/23: 5' 6 . Weight as of this encounter: 210 lb 12.8 oz. BP: 120/70 Patient's last menstrual period was 07/28/2024. Assessment/Plan ICD-10-CM 1. 32 weeks gestation of ([facility]) Z3A.32 POCT urinalysis dipstick manually resulted 2. Third trimester ([facility]) Z34.93 POCT urinalysis dipstick manually resulted 3. Anemia complicating childbirth ([facility]) O99.02 4. Anticoagulant long-term use Z79.01 5. Antiphospholipid antibody positive R76.0 6. Blood pressure elevated without history of HTN R03.0 7. Coagulation defect, unspecified ([facility]) D68.9 8. Antiphospholipid antibody syndrome ([facility]) D68.61 9. Thyroid disease E07.9 10. Multigravida of advanced maternal age in third trimester ([facility]) O09.523 Return OB: Patient presents today for a routine obstetrics appointment. Patient is currently 32w1d . Patient states she is doing well but has complaints of being tired due to current . Patient has verbalizes frequent movement. labor precautions was discussed/given and patient was instructed to perform kick counts three times a day. Pt to continue NST/BPPs. Orders Placed This Encounter Procedures POCT urinalysis dipstick manually resulted Follow Up: Patient is to return to office in 2 week for routine OB appointment. Documented by Pamela Walter LPN on behalf of: Petra Houston PA-C documented in this encounter Plan of Treatment DateTypeDepartmentCare Team (Latest Contact Info)Kfjlilwefct62/26/2025 11:10 AM ESTRoutine [facility] [address] [place] [address] [place] [phone] Wilton Herrmann DO [address] [place] [address] documented as of this encounter Procedures Procedure NamePriorityDate/TimeAssociated DiagnosisCommentsPOCT URINALYSIS YMONRUAYHtwraua91/11/2025 10:06 AM EST 32 weeks gestation of ([facility]) Third trimester ([facility]) documented in this encounter Results * (ABNORMAL) POCT urinalysis dipstick manually resulted (03/10/2025 10:06 AM EST)ComponentValueRef RangeTest MethodAnalysis TimePerformed AtPathologist SignatureColor, UAYellowClarity, UAClearGlucose, UANegativeNegative - 2000(110) ++++ mg/dLBilirubin, UANegativeNegative - 4(70) +++ mg/dLKetones, UA NegativeNegative - 160(16) ++++ mg/dLSpec Grav, UA1.0101 - 1.03Blood, UA NegativeNegative - 50 Max/mcLpH, UA6.05 - 9Protein, UANegativeNegative - 2000(20) ++++ mg/dLUrobilinogen, UA1.00.2 - 12 mg/dLLeukocytes, UAPositive Negative - 500+++ John/mcLComment:2+Nitrite, UANegativeNegative - Positive Specimen (Source)Anatomical Location / LateralityCollection Method / Volume Collection TimeReceived WenhLuxeo26/11/2025 10:06 AM EST Narrative Authorizing ProviderResult TypeResult StatusCorey Montez DOPOINT OF CARE TEST ENTER/EDIT ORDERABLESFinal Result documented in this encounter Visit Diagnoses Diagnosis 32 weeks gestation of ([facility]) Third trimester ([facility]) state, incidental Anemia complicating childbirth ([facility]) Anticoagulant long-term use Encounter for long-term (current) use of anticoagulants Antiphospholipid antibody positive Other and unspecified nonspecific immunological findings Blood pressure elevated without history of HTN Coagulation defect, unspecified ([facility]) Antiphospholipid antibody syndrome ([facility]) Primary hypercoagulable state Thyroid disease Unspecified disorder of thyroid Multigravida of advanced maternal age in third trimester ([facility]) documented in this encounter Care Teams Team MemberRelationshipSpecialtyStart DateEnd Date Evans Casas MD [address] [place] [address] PCP - GeneralFamily Medicine11/07/23documented as of this encounter
--- OUTSIDE RECORDS SUMMARY | 2025-03-11 09:45 | XMS_ITS | Encounter Summary ---
Author Organization [facility] tem Address [id number] [address] [place] [address] Care Team Providers Care Food And Beverage Service Manager Name Role Phone Evans Casas DO Primary Care Provider [phone] Encounter Details DateTypeDepartmentCare Team (Latest Contact Info)Vlkpsmlqxzl01/12/2025 9:45 AM ESTTelemedicine Maternal- Medicine at [facility] [address] [place] [phone] Sana Palma MD [address] [place] [address] Star Cortes MD [address] [facility], [address] [place] [address] Gestational diabetes mellitus (GDM) in second trimester controlled on oral hypoglycemic drug (Primary Dx); Antiphospholipid syndrome Social History Tobacco UseTypesPacks/DayYears UsedDateSmoking Tobacco: NeverSmokeless Tobacco: NeverAlcohol UseStandard Drinks/WeekCommentsNot Currently0 (1 standard drink = 0.6 oz pure alcohol)ChildcareAnswerDate RrvoczxrCkpllxrubTdjmeav10/31/2019 EmploymentAnswerDate DumrmavxIboahuurgiYgshpit60/31/2019Hunger ScreeningAnswer Date RecordedWithin the past 12 months we worried whether our food would run out before we got money to buy more.Never True01/01/2025Within the past 12 months the food we bought just didn't last and we didn't have money to get more.Never True01/01/2025Purpose - LifeAnswerDate RecordedPurpose and direction in life Nmogbyu70/11/2021Estimated Date of LcakcdwuCkbcqmrhYmj09/05/2026Based on last menstrual period of 07/28/2024Sex and Gender InformationValueDate Recorded Sex Assigned at BirthNot on fileLegal LnwQjxpjq02/31/2019 12:25 PM EDTGender IdentityNot on fileSexual OrientationNot [...] age) multigravida 35+ Antiphospholipid syndrome Hypothyroid Stroke ([facility]) Gestational diabetes mellitus (GDM) in second trimester [...] Anemia Antiphospholipid antibody syndrome Cerebral infarction, unspecified ([facility]) 05/16/2019 Hypothyroid Migraine without aura and without status migrainosus, not intractable 09/12/2017 Stroke ([facility]) 2015 REVIEW OF SYSTEMS: Head and [...] allowing me to participate in [facility]. If there are any questions, please do not hesitate to call me. Sincerely, STAR CORTES MD Video Visit via Real-time Synchronous Audiovisual Provider Location: [facility] MATER[facility]- MEDICINE AT [address] [address] Patient Location: Patient's home Patient Location Motor Tune Up Specialist: None Video Visit Consent Statement: I discussed [...] that there are some limitations compared to rgyb-ry-znjt evaluations. We elected to proceed. documented in this encounter Plan of Treatment DateTypeDepartmentCare Team (Latest Contact Info)Pvjudmrxxtm85/18/2025 8:30 AM ESTTelemedicine [facility] Department of [address] [address] Sam Callahan MD MPH [address] [place] [phone] 04/07/2025 1:30 PM ESTTelemedicine Maternal- Medicine at [facility] [address] [place] [address] Davida Smith PASabas [address] [address] documented as of this encounter Visit Diagnoses Diagnosis Gestational diabetes mellitus (GDM) in second trimester controlled on oral hypoglycemic drug- Primary Antiphospholipid syndrome Primary hypercoagulable state documented in this encounter Care Teams Team MemberRelationshipSpecialtyStart DateEnd Date Evans Casas DO PCP - GeneralFamily Medicine07/07/19documented as of this encounter
--- NOTE | 2025-03-12 19:09 | US_ITS ---
The [address] [address] Patient Name: MADHU RENDON MRN: [id number] date: 1985 Sex: F Assigned Patient Location: [facility] Current Patient Location: Accession/Order Number: [id number] Exam Date: 03/12/2025 19:12 Report Date: 03/13/2025 07:55 At the request of: MYA MASSEY DO Procedure: US OB BPP w non-stress BIOPHYSICAL PROFILE: CLINICAL INFORMATION: THIRD TRIMESTER Z34.93 COMPARISON: 03/05/2025 There is a single live intrauterine gestation in cephalic presentation. The reported gestational age is 32 weeks 3 days. The heart rate measures 153 beats per minute. FINDINGS: TONE: 1 or more episodes of activity extension and flexion of extremity or opening and closing of the hand [Y] 2/2 GROSS BODY MOVEMENTS: 3 or more discrete body or limb movements [Y] 2/2 BREATHING MOVEMENTS: 1 or more episodes of breathing lasting at least 30 seconds [Y] 2/2 SARAHI: A single deepest vertical pocket of amniotic fluid greater than 2 cm [Y] 2/2 SARAHI: 12.5 cm Total score: 8/8 US/US OB BPP w non-stress IMPRESSION: NORMAL BIOPHYSICAL PROFILE Impression dictated by: Pamela Pisano M.D. 03/13/2025 7:55 AM Dictation Location: [place] [address] Electronically authenticated by: [id number] Y Date: 03/13/2025 07:55
--- OUTSIDE RECORDS SUMMARY | 2025-03-12 19:10 | XMS_ITS | Encounter Summary ---
Author Organization [facility] Address [address] [facility] [place] [address] Care Team Providers Care Front Desk Host Name Role Phone Evans Casas MD Primary Care Provider [phone] Encounter Details DateTypeDepartmentCare Team (Latest Contact Info)Cskyfzctbgy52/05/2025bstract NOMJaylan COLVIN [address] [place] [address] Wilton Herrmann DO [address] [place], [facility] Social History Tobacco UseTypesPacks/DayYears UsedDateSmoking Tobacco: NeverSmokeless Tobacco: NeverAlcohol UseStandard Drinks/WeekCommentsNever0 (1 standard drink = 0.6 oz pure alcohol)PHQ-2AnswerDate RecordedPatient Health Questionnaire-2 Score0 03/03/2025Estimated Date of OtnfohpwBbxkrqpyXml37/05/2026ased on last menstrual period of 07/28/2024Sex and Gender InformationValueDate RecordedSex Assigned at BirthNot on fileLegal DbyPdybet35/15/2023 11:19 PM EDTGender IdentityNot on fileSexual OrientationNot on filedocumented as of this encounter Plan of Treatment DateTypeDepartmentCare Team (Latest Contact Info)Reigucywtls21/26/2025 11:10 AM ESTRoutine NOMJaylan COLVIN [address] [place] [address] Wilton Herrmann [address] [place] [address] documented as of this encounter Visit Diagnoses Not on filedocumented in this encounter Care Teams Team MemberRelationshipSpecialtyStart DateEnd Date Evans Casas MD [address] [place] [address] PCP - GeneralFamily Medicine11/07/23documented as of this encounter
--- OUTSIDE RECORDS SUMMARY | 2025-03-12 19:10 | XMS_ITS | Encounter Summary ---
Author Organization [facility] Address [address] [place] [address] Care Team Providers Care Master Brewer Name Role Phone Evans Casas MD Primary Care Provider [phone] Encounter Details DateTypeDepartmentCare Team (Latest Contact Info)Doidoiiamps76/07/2025linisync Result Encounter [facility] Unsolicited Mya Herrmann DO [address] [place], [place] [id number] Social History Tobacco UseTypesPacks/DayYears UsedDateSmoking Tobacco: NeverSmokeless Tobacco: NeverAlcohol UseStandard Drinks/WeekCommentsNever0 (1 standard drink = 0.6 oz pure alcohol)PHQ-2AnswerDate RecordedPatient Health Questionnaire-2 Score0 03/03/2025Estimated Date of EebbyrjyNqiemvoxVgg42/05/2026Based on last menstrual period of 07/28/2024Sex and Gender InformationValueDate RecordedSex Assigned at BirthNot on fileLegal ZmtKyavot67/15/2023 11:19 PM EDTGender IdentityNot on fileSexual OrientationNot on filedocumented as of this encounter Plan of Treatment DateTypeDepartmentCare Team (Latest Contact Info)Mebvbnpusue33/26/2025 11:10 AM ESTRoutine [facility] [address] [place] [phone] Mya Herrmann DO [address] [place] [address] documented as of this encounter Procedures Procedure NamePriorityDate/TimeAssociated DiagnosisCommentsUS OB BPP W NON-WNMGDI7703/06/2025 8:10 AM EST documented in this encounter Results * US OB BPP W NON-STRESS (03/06/2025 8:10 AM EST)Anatomical Region LateralityModalityOtherSpecimen (Source)Anatomical Location / Laterality Collection Method / VolumeCollection TimeReceived Time03/06/2025 8:10 AM EST Narrative 03/06/2025 8:13 AM EST [facility] ?[address] ? [place] [address] ? Ultrasound Report ? Signed ? Patient: SANNA RENDON ?MR#: [id number] ?? : 1985 ?Acct:[id number] ?? Age/Sex: 39 / F ?ADM Date: 03/05/25 ?? Loc: US ? Attending Dr: Mya Herrmann D.O. ? Ordering Physician: Mya Herrmann D.O. ?? Date of Service: 03/05/25 ?? Procedure(s): US OB BPP w non-stress ?? Accession Number(s): [id number] ? cc: Mya Herrmann D.O.; Physician,Non-Staff M.D. ? [facility] ? [address] ? [place] [address] ? Patient Name: ?? SANNA RENDON ? MRN: [facility]:[id number] ? date: 1985 ?Sex: F ?? Assigned Patient Location: [facility] ?? Current Patient Location: ? Accession/Order Number: [id number] ?? Exam Date: 03/05/2025 ??19:15 ?Report Date: [...] Dictation Location: RADIO-PC-02 ? Electronically authenticated by: [id number] ??Y ?? Date: 03/06/2025 ??08:10 ? Dictated By: ?Pamela Pisano M.D. ? Signed By: ?11/07/25 0813 ? DD/ 0810 ? TD/TT: ? Bag Filler Machine Operator: Procedure Note Radiology, Radiologist, - 03/06/2025 [place] [address] Ultrasound Report Signed Patient: SANNA RENDON SMR#: [id number] : 1985Acct:[id number] Age/Sex: 39 / FADM Date: 03/05/25 Loc: US Attending Dr: Mya Herrmann D.O. Ordering Physician: Mya Herrmann D.O. Date of Service: 03/05/25 Procedure(s): US OB BPP w non-stress Accession Number(s): [id number] cc: Mya Herrmann D.O.; Physician,Non-Staff M.D. The [place] [id number] Patient Name: SANNA RENDON MRN: [id number] date: 1985 Sex: F Assigned Patient Location: [facility] Current Patient Location: Accession/Order Number: [id number] Exam Date: 03/05/2025 19:15 Report Date: 03/06/2025 [...] Pisano M.D. 03/06/2025 8:10 AM Dictation Location: [place] [address] Electronically authenticated by: [id number] Y Date: 508:10 Dictated By: Pamela Pisano M.D. Signed By:03/06/25812 DD/ 9 TD/TT: Bag Filler Machine Operator: Authorizing ProviderResult TypeResult StatusCorey Montez DOCLINISYNC IMAGINGFinal Result documented in this encounter Visit Diagnoses Not on filedocumented in this encounter Care Teams Team MemberRelationshipSpecialtyStart DateEnd Date Evans Casas MD [address] [place] [address] PCP - GeneralFamily Medicine11/07/23documented as of this encounter
--- OUTSIDE RECORDS SUMMARY | 2025-03-12 19:10 | XMS_ITS | Clinical Summary ---
Author Organization [facility] Address [address], [address] [place] [address] Care Team Providers Care General Engineering Teacher Name Role Phone Evans Casas DO Primary Care Provider [phone] Allergies Active AllergyReactionsCriticalityNoted DateCommentsCiprofloxacinOther (See Comments)06/19/2019Ciprofloxacin-Fluocinolone PfOther [...] elevated without history of HTN12/11/2023ry mouth 12/11/2023Environmental kluilnkxy42/13/2024H/O: qvkfofcpqozcen84/13/2024History of bekrje7912/11/2023History of gestational uxwuxgxc34/13/2024History of kidney jjybwv8612/11/2023Hx of iron deficiency wewltv6812/11/2023Immunization not carried out because of patient btixtper28/13/2024Morbid jjcpnvn5212/11/2023Non-smoker 12/11/2023OSA (obstructive sleep apnea)12/11/2023ight otitis mguqysy4612/11/2023 Abdominal pain06/12/2023cute bronchitis due to qomzqiewj94/13/2024nxiety 06/12/2023ysfunction of eustachian tube06/12/20236515Mcelbrb14/13/2024Hematochezia 06/12/2023History of severe acute respiratory syndrome coronavirus 2 (SARS-CoV-2) tgvlvnd6706/12/20234422Sgqxnmytpxkz14/13/2024Inhalation hbioqo1606/12/2023 urzsgfv8206/12/2023sychogenic xjqafvyincpkdsbi48/13/2024Suspected severe acute respiratory syndrome coronavirus 2 (SARS-CoV-2) lbbktcztu86/13/2024 Primary hypercoagulable state08/01/2022estational diabetes mellitus in , unspecified aumcfbv1501/26/2022Genitourinary oiaozrql47/22/2022Muscle ovoxzvndcrfbe06/22/2022TIA (transient ischemic attack)06/16/2020erebrovascular accident (CVA) due to stenosis of middle cerebral ppzpdz3102/22/2020Anticoagulant long-term use02/22/2020Acute posthemorrhagic ubncpi6201/16/202039 weeks gestation of kpggxusaq25/18/2020Anemia complicating avvewlqtiz65/18/2020Endocrine, nutritional and metabolic diseases complicating zkgyyuowpp31/18/2020First degree perineal laceration during msxealfu82/18/2020Other immediate fhfwpbzbmi24/18/2020Personal history of transient ischemic attack (TIA), and cerebral infarction without residual rjpgpmxa46/18/2020Personal history of urinary (tract) huhgbnmkyo40/18/2020Single live birth01/15/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01/08/202038 weeks gestation of zuhtpducv48/09/2020Pruritus, cftjyotmmyy92/04/202037 weeks gestation of hiwhogygx34/04/737293 weeks gestation of tpvwxviny04/01/2020Other speech and language deficits following cerebral bhyvgxksyr56/01/2020Other diseases of the blood and blood-forming organs and certain disorders involving the immune mech anism complicating rmwxlrlpyn32/25/881847 weeks gestation of bpehqmbuo03/24/2020 34 weeks gestation of vgszpuguv50/18/844292 weeks gestation of 12/10/201932 weeks gestation of ftteacpcq35/31/2020Thrombocytopenia, unspecified 11/20/2019Other general symptoms and signs10/28/2019Urinary tract infection, site not vytohcmew27/18/9009Yxkbinovwsnu97/28/2020SVT (supraventricular tachycardia)08/26/2019Antiphospholipid antibody xvtehxpg36/09/2020Other bacterial infections of unspecified site06/27/2019Less than 8 weeks gestation of efcnyshdx63/06/2020Encounter for supervision of normal , unspecified, first dmhsehnsy07/30/0427Hldooicbrdvl34/17/2020Cerebral infarction, unspecified 05/16/2019Paresthesia of skin05/16/2019Deficiency of other specified B group zjkzwduk23/17/2020Hypothyroidism, /17/2020Unspecified condition associated with female genital organs and menstrual cycle05/09/2019Vomiting of , cbtbmtsscni87/06/2020Other specified noninflammatory disorders of mvabse3202/21/2019Frequency of gcjvbhteogr07/23/2019Unspecified ovarian cyst, right side02/06/2019Coagulation defect, hkzipdzqeze30/09/2019Cervicalgia 02/05/2019Long term (current) use of 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/tulwppfnhotbq04/09/2019 Dizziness and qcdpqzegb93/09/2019Other acute postprocedural pain02/03/2019Pelvic and perineal pain02/01/2019Syncope and rlleqcvr14/04/2019Anticardiolipin antibody torwoadj79/29/2018Migraine without aura and without status migrainosus, not ihggdvmogqb86/16/2018Antiphospholipid antibody bifujarp01/14/2018Pain in joint12/29/20169942Bkngmmm50/01/2017Idiopathic progressive iwvlvybvmq54/01/2017 Resolved Problems ProblemNoted DateDiagnosed DateResolved GfuwUzfud15/ Encounters DateTypeDepartmentCare CuuxLrgrzqxdiad49/24/2025 2:30 PM EDTOffice Visit [facility] [address] [place] [address] [place] [address] Peng Osorio MD Antiphospholipid antibody syndrome (Primary [...] InformationValueDate RecordedSex Assigned at BirthNot on fileLegal UkrDegkws04/14/2017 2:04 PM EDT Gender IdentityNot on fileSexual OrientationNot on file Last Filed Vital Signs Vital SignReadingTime TakenCommentsBlood Kumtjhqw424/6409 2:40 PM EDT Bsexy547001/21/2025 2:40 PM RQYDqxfmrspzsf79.2 ??C (97.2 ??F)02/09/2022 11:22 AM EDTRespiratory Rgun8372 11:22 AM EDTOxygen Iozcaqhnhj98%10/04/2020 2:01 PM EDTInhaled Oxygen Concentration--Xdnlkd86.8 kg (209 lb)01/21/2025 2:40 PM EDT Lmcivm028.6 cm (5' 6 )02/09/2022 11:22 AM EDTBody Mass Index33.7302/09/2022 11:22 AM EDT Plan of Treatment DateTypeDepartmentCare Team (Latest Contact Info)Npfomwfmktp11/25/2026 1:45 PM EDTOffice Visit [facility] [address] [place] [address] [place] [address] Peng Osorio MD [address] [place] [address] [place] [phone] 6 [address] FUPHealth MaintenanceDue DateLast DoneCommentsDepression Zwygmw9510/21/1997 Varicella vaccine (1 of 2 - 13+ 2-dose series)1998Hepatitis C screen 10/22/2003Hepatitis B vaccine (1 of 3 - 19+ 3-dose series)2004Pap smear 2006Cervical cancer dpvfvt1610/22/2015HPV (without or with Pap)10/22/2015 DTaP/Tdap/Td vaccine (2 [...] Procedure NamePriorityDate/TimeAssociated DiagnosisCommentsHIV-1,-2 W/REFLEX TO HIV-1 WESTERN XTBUByxcnwk54/01/2017 11:49 AM EDT Arthralgia, unspecified joint Fatigue, unspecified type Sensation disorder from Last 3 Months or Most Recently Relevant to Health Maintenance Results * Hiv-1,-2 W/Reflex To Hiv-1 Western Blot (12/29/2016 11:49 AM EDT)Component ValueRef RangeTest MethodAnalysis TimePerformed AtPathologist Signature HIV-1/HIV-2 YwHathbwjvNnqyamhu27/03/2017 12:03 AM [facility] Comment: Based on the non-reactive anti-HIV (BRENDEN) screen, the HIV Western blot is not indicated and therefore not performed. INTERPRETIVE INFORMATION: HIV-1,-2 w/Reflex to HIV-1 Western Blot This assay should not be used for blood donor screening, associated re-entry protocols, or for screening Human Cells, Tissues and Cellular and Tissue-Based Products (HCT/P). Performed by [employer], [facility] [place] [address] [email or web address], Zhang Bledsoe MD - Lab. Director Specimen (Source)Anatomical Location / LateralityCollection Method / Volume Collection TimeReceived TimeBLOOD SPECIMEN / Itkaysq1012/29/2016 11:49 AM EDT 12/29/2016 1:50 PM EDT Narrative Authorizing ProviderResult TypeResult StatusRitiki Monroe MDHEMATOLOGY ORDERABLES Final ResultPerforming OrganizationAddressCity/State/ZIP CodePhone Number [facility] [address] [place] [address], [facility] [phone] from Last 3 Months or Most Recently Relevant to Health Maintenance Insurance Care Teams Team MemberRelationshipSpecialtyStart DateEnd Date Evans Casas DO [address] [place] [address] PCP - GeneralFamily Medicine10/04/20
--- OUTSIDE RECORDS SUMMARY | 2025-03-12 19:10 | XMS_ITS | Encounter Summary ---
Author Organization [facility] Address [address] [place] [address] Care Team Providers Care Bioinformatician Name Role Phone Evans Casas MD Primary Care Provider [phone] Encounter Details DateTypeDepartmentCare Team (Latest Contact Info)Osyfsgxvbls74/04/2025Patient Outreach [facility] [address] [place] [address] Petra Whitmore LPN [address] [place] [address] Social History Tobacco UseTypesPacks/DayYears UsedDateSmoking Tobacco: NeverSmokeless Tobacco: NeverAlcohol UseStandard Drinks/WeekCommentsNever0 (1 standard drink = 0.6 oz pure alcohol)PHQ-2AnswerDate RecordedPatient Health Questionnaire-2 Score0 03/03/2025Estimated Date of OdcrruilBungspfhLla17/05/2026ased on last menstrual period of 07/28/2024Sex and Gender InformationValueDate RecordedSex Assigned at BirthNot on fileLegal ZziTbobjw71/15/2023 11:19 PM EDTGender IdentityNot on fileSexual OrientationNot on filedocumented as of this encounter Functional Status * Over the past 2 weeks, how often have you been bothered by any of the following problems?QuestionAnswerDate of AssessmentAuthorLittle interest or pleasure in doing thingsNot at all03/03/2025 1:52 PM Petra Tabares LPN Feeling down, depressed, or hopelessNot at all03/03/2025 1:52 PM Petra Tabares LPNPatient Health Questionnaire-2 Sxhmz15905/03/2024 1:52 PM Petra Tabares LPN documented as [...] Plan of Treatment DateTypeDepartmentCare Team (Latest Contact Info)Yuzunqelnda84/26/2025 11:10 AM ESTRoutine [facility] [address] [place] [phone] Wilton Herrmann DO [address] [place] [address] documented as of this encounter Visit Diagnoses Not on filedocumented in this encounter Care Teams Team MemberRelationshipSpecialtyStart DateEnd Date Evans Casas MD [address] [place] [address] PCP - GeneralFamily Medicine11/07/23documented as of this encounter
--- OUTSIDE RECORDS SUMMARY | 2025-03-12 19:10 | XMS_ITS | Clinical Summary ---
Author Organization [employer] Address [id number] [address] [place] [address] Care Team Providers Care Network Strategist Name Role Phone Evans Casas DO Primary Care Provider [phone] Allergies Active AllergyReactionsCriticalityNoted DateCommentsCiprofloxacinDizziness 06/19/2019LactalbuminOther (See Comments)Low05/25/2017 Other reaction(s): GI Upset Crampy and gassy LactoseGI Jseuzpysmtw86/14/2018 Diarrhea Milk Containing Products (Dairy)Other (See Comments)Low05/25/2017 [...] 15 days and change 2 each 605Active enoxaparin (LOVENOX) 40 mg/0.4 mL syringe Indications:Antiphospholipid syndromeInject 0.4 mL (40 mg total) under the skin Every 12 (twelve) hours. 24 mL 605Active metFORMIN XR (GLUCOPHAGE XR) 500 mg 24 hr tablet Take 500 AM and 1000 mg at night. 90 tablet 5Active metFORMIN XR (GLUCOPHAGE XR) 500 mg 24 hr tablet Take 1500 mg at night. 90 tablet 5105/11/2024Discontinued Active Problems ProblemNoted DateDiagnosed DateGestational diabetes mellitus (GDM) in second trimester controlled on oral hypoglycemic drug12/17/20244696Nxyhab35/08/2025MA (advanced maternal age) multigravida 35+11/04/2024ntiphospholipid syndrome 11/04/20241261Lfqvdbuwzwy49/08/5507Okbdeu84/08/2025ntiphospholipid syndrome complicating , qjvcxslfre81/09/2020Estimated Date of Delivery FrbqzluxDli59/05/2026Based on last menstrual period of 07/28/2024 Resolved Problems ProblemNoted DateDiagnosed DateResolved DateCerebral infarction, unspecified Migraine without aura and without status migrainosus, not jxsbriestqf78 Encounters DateTypeDepartmentCare PwhvKjhyecwyals62/12/2025 9:45 AM ESTTelemedicine Maternal- Medicine at [facility] [facility] [address] [place] [address] Sana Palma MD Khurshid, Nauman, MD Gestational diabetes mellitus (GDM) in second trimester controlled on oral hypoglycemic drug (Primary Dx); Antiphospholipid /12/8385Gbmvwp40/07/5499Vrvxnn01/23/2025Orders Only [facility], [facility] Department of [address] [address] Ref Prov, Not In System 02/18/2025Orders Only [facility] Department of [address] [address] Ref Prov, Not In System 02/16/2025 1:45 PM EDTOffice Visit [facility] Department of [address] [address] Sam Callahan MD MPH Antiphospholipid syndrome (Primary Dx); Antiphospholipid syndrome complicating , antepartum; History of CVA (cerebrovascular accident); Coordination of complex care; 29 weeks gestation of dxqxuiynf71/20/3022Fyosoj95/14/2025Telephone [facility]aternal- Medicine at [facility] [address] [place] [address] Annita Kendall LD 02/06/2025 2:00 PM EDTTelemedicine Maternal- Medicine at [facility] [address] [place] [phone] Wilfrid Medina MD 27 weeks gestation of (Primary Dx); Multigravida of advanced maternal age in third trimester; Gestational diabetes mellitus (GDM) in second trimester controlled on oral hypoglycemic drug; Antiphospholipid syndrome complicating , antepartum; Antiphospholipid ejaukgdb41/10/0355Rfspqs01/09/9873Brmnqd10/16/2025 10:00 AM EDT Telemedicine Maternal- Medicine at [facility] [address] [place] [address] Davida Smith PA-C Gestational diabetes mellitus (GDM) in second trimester controlled on oral hypoglycemic drug (Primary Dx); Antiphospholipid syndrome; Other specified hypothyroidism; Antiphospholipid syndrome complicating , anvmuennow29/16/2025Travel 01/09/2025Telephone Maternal- Medicine at [facility] [address] [place] [address] Wilfrid Medina MD 01/09/2025Orders Only [facility]- Medicine at [facility] [address] [place] [address] Wilfrid Medina MD Antiphospholipid syndrome (Primary Dx)01/07/2025Telephone Maternal- Medicine at [facility] [address] [place] [address] Jacque Pat RN 01/06/2025Telephone Maternal- Medicine at [facility] [address] [place] [address] Margo Khan RN 01/05/2025Orders Only [facility] at [facility] [address] [place] [address] Jacque Pat, MARSHA Multigravida of advanced maternal age in second trimester (Primary Dx); Antiphospholipid syndrome complicating , antepartum; Gestational diabetes mellitus (GDM) in second trimester controlled on oral hypoglycemic drug; AMA (advanced maternal age) multigravida 35+, second trimester; Hypothyroidism, unspecified type; History of stroke; History of loss in prior , currently in second trimester; Hypothyroidism affecting in second trimester; Family history of autism; Zxybwuptilux27/08/2025Documentation M[facility]- Medicine at [facility] [address] [place] [address] Jacque Pat RN 01/01/2025 2:30 PM EDTTelemedicine Maternal Medicine [place] [address] [phone] Wilfrid Medina MD 22 weeks gestation of (Primary Dx); Antiphospholipid syndrome complicating , antepartum; History of stroke; History of loss in prior , currently in second trimester; Gestational diabetes mellitus (GDM) in second trimester controlled on oral hypoglycemic drug; Multigravida of advanced maternal age in second trimester; Hypothyroidism affecting in second trimester; Family history of autism; Jqqjacdlpkdo57/04/2025Orders Only [facility] [place] [address] [phone] Iraida Warren RN Multigravida of advanced maternal age in second trimester (Primary Dx); Antiphospholipid syndrome complicating , antepartum; Gestational diabetes mellitus (GDM) in second trimester controlled on oral hypoglycemic drug; Insulin controlled gestational diabetes mellitus (GDM) in second trimester; AMA (advanced maternal age) multigravida 35+, second trimester; Hypothyroidism, unspecified type01/01/20252744Reebdl39/29/2025Orders Only [facility] - Labor [address] [place] [address] Wilfrid Medina MD Gestational diabetes mellitus (GDM) in second trimester controlled on oral hypoglycemic drug (Primary Dx)12/26/2024Telephone Maternal- Medicine at [facility] [address] [place] [address] Stephanie Quiros LD 12/17/2024 3:30 PM EDTTelemedicine Maternal- Medicine at [address] [place] [address] Alisa Saba, CONTACT [employer]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 Gestational diabetes mellitus (GDM) in second trimester controlled on oral hypoglycemic drug (Primary Dx)12/17/20248353Btitqg09/15/2025Orders Only Maternal- Medicine at [facility] [address] [place] [address] Star Waggoner MD 12/12/2024Telephone Maternal- Medicine at [facility] [address] [place] [phone] Annita Kendall LD 12/12/2024Telephone Maternal- Medicine at [facility] [address] [place] [phone] Annita Kendall LD from Last 3 Months Family History Medical NfthfetZmdycdtlPggmYqibebtuLxdsojtvJbbktxE5BWOqaopoScippfRvwpjt illness Maternal GrandmotherCancerPaternal GrandfatherDiabetesPaternal LjgtmtcyyetR6ME CancerPaternal GrandmotherDiabetesPaternal OwpxgtbwfilR6ACRfpyxqboUhurdlG3UM RelationNameStatusCommentsFatherDeceasedMaternal GrandmotherPaternal Grandfather Paternal GrandmotherSister Social History Tobacco UseTypesPacks/DayYears UsedDateSmoking Tobacco: NeverSmokeless Tobacco: Never Tobacco Cessation:Counseling Given: Not Answered Alcohol UseStandard Drinks/WeekCommentsNot Currently0 (1 standard drink = 0.6 oz pure alcohol)ChildcareAnswerDate EzjgzwgpUfkiifpdcVftzhdn27/31/2019Employment AnswerDate JwzqzjbbSpeieqsiqxMtviklj00/31/2019Hunger ScreeningAnswerDate RecordedWithin the past 12 months we worried whether our food would run out before we got money to buy more.Never True01/01/2025Within the past 12 months the food we bought just didn't last and we didn't have money to get more.Never True01/01/2025Purpose - LifeAnswerDate RecordedPurpose and direction in life Eohkkqz34/11/2021Estimated Date of LutultjqUxuoksepVoy80/05/2026Based on last menstrual period of 07/28/2024Sex and Gender InformationValueDate Recorded Sex Assigned at BirthNot on fileLegal ZkbOmorqu44/31/2019 12:25 PM EDTGender IdentityNot on fileSexual OrientationNot on file Last Filed Vital Signs Vital SignReadingTime TakenCommentsBlood Djnfxzul935/8010 1:44 PM EDT Znbey8109 1:44 PM EDTTemperature--Respiratory Yxsw4731 1:44 PM EDTOxygen Saturation--Inhaled Oxygen Concentration--Ebfzrh86.8 kg (209 lb) 02/16/2025 1:44 PM BNETykkyq748.6 cm (5' 6 )02/16/2025 1:44 PM EDTBody Mass Index33.7302/16/2025 1:44 PM EDT Plan of Treatment DateTypeDepartmentCare Team (Latest Contact Info)Caoqzuykjqt89/18/2025 8:30 AM ESTTelemedicine [facility], A Department of [address] [address] Sam Callahan MD MPH [address] [place] [address] 04/07/2025 1:30 PM ESTTelemedicine Maternal- Medicine at [facility] [address] [place] [phone] Davida Smith PA-C [address] [address] Health MaintenanceDue DateLast DoneCommentsDepression Gqwsutiud89/24/1998Adult BMI Follow Up Plan10/22/2003DTaP,Tdap and Td Vaccines (2 - Td or Tdap)07/03/2024 07/03/2014Influenza Xgnapao4012/29/2024Pap Smear510/2RSV ( or age 60+ yrs) (1 - Risk 1-dose series)03/09/2025dult BMI Screening Tobacco Zhytfintx23 [employer] Not on file Procedures Procedure NamePriorityDate/TimeAssociated DiagnosisCommentsEXTERNAL LAB ORDERS / QXVCLKVAswkmsi68/23/2025 3:15 PM EDTEXTERNAL LAB ORDERS / RESULTSRoutine 02/19/2025 3:13 PM EDTEXTERNAL LAB ORDERS / IOVASZUIdhjfmf28/22/2025 1:58 PM EDT US MF OB FOLLOW-UP, 1 SGQJLInhakkr77/09/2025 2:10 PM EDT Multigravida of advanced maternal age in second trimester Antiphospholipid syndrome complicating , antepartum Gestational diabetes mellitus (GDM) in second trimester controlled on oral hypoglycemic drug Insulin controlled gestational diabetes mellitus (GDM) in second trimester AMA (advanced maternal age) multigravida 35+, second trimester Hypothyroidism, unspecified type [facility] COMPREHENSIVE ANATOMIC ILBUUPXznrmjo50/04/2025 2:24 PM EDT Screening, , for anatomic survey Multigravida of advanced maternal age in second trimester from Last 3 Months Results * External Lab Orders / Results (02/19/2025 3:15 PM EDT) Only the most recent of3 resultswithin the time period is included. Narrative Authorizing ProviderResult TypeResult StatusNot In System Ref ProvLAB ORDERABLES Final ResultPerforming OrganizationAddressCity/State/ZIP CodePhone Number MANUALLY TRANSCRIBED RESULTS * [facility] OB FOLLOW-UP, 1 FETUS (02/05/2025 2:10 PM EDT) Only the most recent of2 resultswithin the time period is included. Anatomical RegionLateralityModalityOB-GYNUltrasoundSpecimen (Source)Anatomical Location / LateralityCollection Method / VolumeCollection TimeReceived Time 02/05/2025 1:21 PM EDT Narrative 02/06/2025 5:22 PM EDT NAME: ??JUSTICE LEUNG : 1985 SEX: F Accession Number: [id number] ORDERING PHYSICIAN: MYA MASSEY REFERRING PHYSICIAN: MYA MASSEY Coding Procedures ? 40619: Ultrasound, uterus, real time with image documentation, follow up,transabdominal ? approach per fetus ? 16848: Echocardiography, , cardiovascular system, real time with image documentation (2D), with or ? without M-mode recording; follow-up or repeat study Indication Screening for follow-up survey, Screening for congenital cardiac abnormality , Gestational diabetes, AMA- Supervision of elderly , Supervision of high risk -(MOB son - hypospadia, MOB -son - laryngomalacia ), Obesity in , Hypothyroidism. History OB History ? 7. Para 3 ? [id number] Current Cell free DNA ?Low Risk analysis [...] (oz) ? 4 oz EFW by: ?Hadlock (WJD-OJ-KN-FL) Extended Tibia ??46.0 mm 28w 0d 68% [...] Heart/Thorax: 4-chamber view. RVOT view. 3-vessel view. 5-cqpfhg-pouwbos view. Great vessels. ? Right lung. Left [...] previously RVOT view ?normal 3-vessel view ??normal 8-tlzaik-iixmhqx view ??normal Aortic arch view ? normal [...] MVP measures 6.7 cm. Recommendations Please see [facility] recommendations from prior clinical and/or ultrasound report [...] LEUNG : 1985 SEX: F Accession Number: [id number] ORDERING PHYSICIAN: MYA MASSEY REFERRING PHYSICIAN: MYA MASSEY Coding Procedures 05221: Ultrasound, uterus, real time with image documentation, follow up, transabdominal approach per fetus 17149: Echocardiography, , cardiovascular system, real timewith image documentation (2D), with or without M-mode recording; follow-up or repeat study Indication Screening for follow-up survey, Screening for congenital cardiacabnormality , Gestational diabetes, AMA- Supervision of elderly , Supervision of high risk -(MOB son - hypospadia, MOB -son - laryngomalacia ), Obesity in , Hypothyroidism. History OB History 7. Para 3 [id number] Current Cell free DNA Low Risk analysis [...] EFW (oz) 4 oz EFW by: Hadlock (VVM-AY-DQ-FL) Extended Tibia 46.0 mm 28w 0d 68% [...] Heart/Thorax: 4-chamber view. RVOT view. 3-vessel view. 1-wcmeop-uefagwfpxki. Great vessels. Right lung. Left lung. Diaphragm. [...] previously RVOT view normal 3-vessel view normal 1-frxqri-qfxjhof view normal Aortic arch view normal Ductal [...] MVP measures 6.7 cm. Recommendations Please see [facility] recommendations from prior clinical and/or ultrasoundreport documentation. [...]
--- OUTSIDE RECORDS SUMMARY | 2025-03-12 19:10 | XMS_ITS | Clinical Summary ---
Author Organization [facility] Address [address] [place] [address] Care Team Providers Care Car Attendant Name Role Phone Penelope Casas MD Primary Care Provider [phone] Allergies Active AllergyReactionsCriticalityNoted DateCommentsCiprofloxacinGI intolerance 04/19/2023iprofloxacin-Fluocinolone Pf05/19/2019 Other Reaction(s): Other: See Comments Dizziness, weakness sweating Ypojhaz1409/10/2017 Other Reaction(s): GI Disturbance, GI Upset Diarrhea Diarrhea Lactose Intolerance (Gi)11/15/2023 Other Reaction(s): Illness Jaokzngescv31/06/2021 Other Reaction(s): Other (See Comments) OcdkqZcquuVjj67/26/2018 seasonal Other Reaction(s): Other (See Comments) Medications MedicationSigDispense QuantityRefillsLast FilledStart DateEnd DateStatus Multiple Vitamin (Multi-Vitamin) tablet Take 1 tablet by mouth in the morning.Active levothyroxine (Synthroid) 25 MCG tablet Indications:Abnormal TSHTake 1 tablet (25 mcg) by mouth in the morning. Take before meals. 30 tablet 110//[id number]//6Active enoxaparin (Lovenox) 40 MG/0.4ML injection 1 (one) time each day at the same timeActive docusate sodium (Colace) 50 MG capsule Take 100 mg by mouth in the morning and 100 mg before bedtime.Active polyethylene glycol, PEG, 3350 (Glycolax) 17 GM/SCOOP powder Take 17 g by mouth DailyActive Alcohol Swabs (Alcohol Prep Pad) 70 % pads Indications:Second trimester ([facility]),13 weeks gestation of ([facility]),Multigravida of advanced maternal age in second trimester ([facility]), Gestational diabetes mellitus (GDM), antepartum, gestational diabetes method of control unspecified([facility]),Elevated glucose tolerance testApply 1 Pad topically Daily Use four times daily to check FSBS. 150 each tive Blood Glucose Monitoring Suppl (D-Vubiquity Glucometer) w/Device kit Indications:Second trimester ([facility]),13 weeks gestation of ([facility]),Multigravida of advanced maternal age in second trimester ([facility]), Gestational diabetes mellitus (GDM), antepartum, gestational diabetes method of control unspecified([facility]),Elevated glucose tolerance test1 kit Daily Use [...] (GDM), antepartum, gestational diabetes method of control unspecified([facility])Take 3 tablets (1,500 mg) by mouth in the evening. Take with meals Do not crush, chew, or split. 90 tablet 5Active Enoxaparin Sodium (Lovenox) 40 MG/0.4ML solution prefilled syringe Indications:Anticoagulant long-term use,Antiphospholipid antibody positive, Antiphospholipid antibody syndrome ([facility])Inject 40 mg as directed Daily for 30 doses 12 mL Expired Active Problems ProblemNoted DateDiagnosed DateH/O loss01/05/2025Multigravida of advanced maternal age in second trimester ([facility])01/05/2025Thyroid idhlwum8601/05/2025 Referred otalgia of right ear11/19/2023LPRD (laryngopharyngeal reflux disease) 11/19/2023cute on chronic vesicular eczema of hands and feet11/15/2023lood pressure elevated without history of HTN11/15/2023MI 37.0-37.9, adult11/15/2023 Cold nuutpgmowdz47/18/2024eviated ajobao7411/15/2023ry mouth11/15/2023Elevated blood pressure wywhtyo0111/15/2023Environmental btoslxkga64/18/2024H/O: uunlztrlkcyoid54/18/2024History of wlopel6311/15/2023History of cerebrovascular atsgzans28/18/2024 Overview (11/15/2023): reported by pt - related to antiphospholipid syndrome History of COVID-19011/15/2023History of gestational rqcdunao55/18/2024History of kidney ymchce6911/15/2023Hx of iron deficiency xkbyan2611/15/2023Immunization not carried out because of patient /18/2024Iron iamimsmjre86/18/2024 Irregular uterine wqiszafq17/18/2024Morbid uefjbqa8311/15/2023Nasal polyps 11/15/2023Non-iixywq5411/15/2023OSA (obstructive sleep apnea)11/15/2023aresthesia of bilateral legs11/15/2023re-eeslktyz15/18/2024Right lower quadrant pain 4Right otitis kjhtmyi0811/15/2023Salivary gland xfuivwpf93/18/2024Snoring 11/15/2023bdominal pain06/12/2023cute bronchitis due to xtitonurx87/13/2024 Fmjjgwz6106/12/2023ysfunction of eustachian tube06/12/20234309Ocfkbiz25/13/2024 Mxbdodoxbnku11/13/2024Inhalation muebqg6706/12/2023Lactation problem ([facility]) 06/12/2023sychogenic qqingvxwryngjpxx28/13/2024Suspected severe acute respiratory syndrome coronavirus 2 (SARS-CoV-2) klrcdlweg81/13/2024Hypoglycemia 06/12/2023rimary hypercoagulable state ([facility])08/01/2022estational diabetes mellitus (GDM), antepartum ([facility])01/26/2022Genitourinary tbtsxbip34/22/2022 Muscle bogmrblaodxgu61/22/2022nticoagulant long-term use02/22/2020 Cerebrovascular accident (CVA) due to stenosis of middle cerebral artery 02/22/2020Anemia complicating childbirth ([facility])01/16/2020First degree perineal laceration during delivery ([facility])01/16/2020Acute posthemorrhagic occpcn3801/16/2020Other immediate hemorrhage ([facility])01/16/2020 Personal history of urinary (tract) twyhrscqia25/18/2020Single live ([facility])01/15/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 ([facility])01/08/2020Pruritus, puxgvssdbhs97/04/2020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)12/30/201932 weeks gestation of ([facility])11/28/2019Thrombocytopenia, leinvccgpjx65/23/2020Other general symptoms and signs10/28/2019Urinary tract /18/2020 Ybbkaoqwxogs77/28/2020SVT (supraventricular tachycardia)08/26/2019 Antiphospholipid antibody syndrome ([facility])07/07/2019Other bacterial infections of unspecified site06/27/2019Less than 8 weeks gestation of ([facility]) 06/05/2019Encounter for supervision of normal , unspecified, first trimester ([facility])05/29/2019Cerebral infarction, jpmktvtcjog78/17/2020 Deficiency of other specified B group /17/8425Ztzgqkshhwpe39/17/2020 Unspecified condition associated with female genital organs and menstrual cycle 05/09/2019Other specified noninflammatory disorders of phvnxm2402/21/2019Frequency of snoftlmvayk10/23/2019Unspecified ovarian cyst, right side02/06/2019 Jcwuswmojwv83/09/2019Coagulation defect, unspecified ([facility])02/05/2019 Dizziness and zzznhxewv26/09/2019Long term (current) use of 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/dqulgzqgcpdhh00/09/2019Other acute postprocedural pain02/03/2019 Pelvic and perineal pain02/01/2019Syncope and eiszbfpc31/04/2019Raised antibody titer09/25/2017Migraine without aura and without status migrainosus, not croepnspqlp53/16/2018Antiphospholipid antibody uunogzui76/14/2018Fatigue 12/29/2016Idiopathic progressive qaahyvxepq01/01/2017Pain in joint12/29/2016 Estimated Date of LcqoihboQxwpeukoQqp87/05/2026ased on last menstrual period of 07/28/2024 Encounters DateTypeDepartmentCare SaupBiwcjvkkgnm05/11/2025 9:50 AM ESTRoutine [facility] [address] [facility] [place] [address] Mya Herrmann, DO 32 weeks gestation of ([facility]); Third trimester ([facility]); Anemia complicating childbirth ([facility]); Anticoagulant long-term use; Antiphospholipid antibody positive; Blood pressure elevated without history of HTN; Coagulation defect, unspecified ([facility]); Antiphospholipid antibody syndrome ([facility]); Thyroid disease; Multigravida of advanced maternal age in third trimester ([facility])03/10/2025 Bamboo flowsheet [facility] [address] [place] [address] Mya Herrmann, DO 5Clinisync Result Encounter [facility] External Department Unsolicited Mya Herrmann, DO 03/04/2025bstract [facility] [place] [address] Mya Herrmann, DO 03/03/2025Patient Outreach [facility] [address] [place] [address] Petra Whitmore LPN 5Clinisync Result Encounter NOMS External Department Unsolicited Mya Herrmann, DO 02/23/2025 9:00 AM EDTRoutine [facility] [address] [place] [address] Mya Herrmann, DO Third trimester ([facility]); 30 weeks gestation of ([facility])02/23/2025amboo flowsheet [facility] [place] [address] Mya Herrmann, DO 02/20/2025linisync Result Encounter [facility] External Department Unsolicited Mya Herrmann, DO 02/20/2025linisync Result Encounter [facility] External Department Unsolicited Mya Herrmann, DO 02/17/2025linisync Result Encounter [facility] External Department Unsolicited Mya Herrmann, DO 02/17/2025bstract [facility] [place] [address] Mya Herrmann, DO 02/09/2025 10:30 AM EDTRoutine [facility] [place] [address] Mya Herrmann, DO Third trimester ([facility]); 28 weeks gestation of ([facility]); Anemia complicating childbirth ([facility]); Anticoagulant long-term use; Antiphospholipid antibody positive; Blood pressure elevated without history of HTN; Coagulation defect, unspecified ([facility])02/09/2025bstract [facility] [place] [address] Mya Herrmann, DO 02/03/2025Patient Outreach [facility] [address] [place] [address] Petra Whitmore LPN 01/21/2025Telephone [facility] [place] [address] Celia Keith NP 01/19/2025 9:00 AM EDTRoutine [facility] [place] [address] Mya Herrmann, Second trimester ([facility]); 25 weeks gestation of ([facility]); Gestational diabetes mellitus (GDM), antepartum, gestational diabetes method of control unspecified([facility]); Anticoagulant long-term use; Antiphospholipid antibody positive; Antiphospholipid antibody syndrome ([facility])01/19/2025bstract [facility] [address] [facility] [place] [address] Mya Herrmann, DO 01/15/2025Telephone [facility] [place] [facility] [address] [facility] [place] [address] Lala Hess MA 01/06/2025Patient Outreach [facility] [address] [place] [place] [address] Petra Whitmore LPN 01/05/2025 2:40 PM EDTRoutine [facility] OBKATHIEN [address] [facility] [place] [address] Mya Herrmann, Second trimester ([facility]); 23 weeks gestation of ([facility]); Thyroid disease ; Gestational diabetes mellitus (GDM), antepartum, gestational diabetes method of control unspecified([facility]); Multigravida of advanced maternal age in second trimester ([facility]); H/O loss; Lightheaded; Cmmbtjivh07/08/2025amboo flowsheet [facility] [place] [facility] [address] [facility] [place] [address] Mya Herrmann, DO 12/26/2024bstract [facility] [place] [facility] [address] [facility] [place] [address] Mya Herrmann, DO 12/18/2024bstract [facility] [place] [facility] [address] [facility] [place] [address] Mya Herrmann, DO 12/16/2024linisync Result Encounter [facility]OM[facility] External Department Unsolicited Mya Herrmann, 5Clinisync Result Encounter [facility] External Department Unsolicited Mya Herrmann, 12/12/2024Telephone [facility] [address] [place] [address] Ariane Joseph, [employer] 12/12/2024Patient Outreach [facility] [address] [place] [address] MyrandaPetra, FLUME MAKER 12/11/2024 9:10 AM EDTRoutine [facility] [address] [place] [address] Mya Herrmann, 19 weeks gestation of ([facility]); Second trimester ([facility]); Thyroid disease ; Multigravida of advanced maternal age in second trimester ([facility]); Gestational diabetes mellitus (GDM), antepartum, gestational diabetes method of control unspecified([facility])5Clinisync Result Encounter [facility] External Department Unsolicited Mya Herrmann, 12/11/2024amboo flowsheet [facility] [address] [facility] [place] [address] Mya Herrmann DO from Last 3 Months Family History Medical HistoryRelationNameCommentsCerebrovascular AccidentFatherDiabetesFather Heart problemsMaternal GrandfatherMental illnessMaternal GrandmotherCancer Paternal GrandfatherDiabetesPaternal GrandfatherCancerPaternal Grandmother DiabetesPaternal GrandmotherDiabetesSisterRelationNameStatusCommentsFather Maternal GrandfatherMaternal GrandmotherPaternal GrandfatherPaternal Grandmother Sister Social History Tobacco UseTypesPacks/DayYears UsedDateSmoking Tobacco: NeverSmokeless Tobacco: Never Tobacco Cessation:Counseling Given: Not Answered Alcohol UseStandard Drinks/WeekCommentsNever0 (1 standard drink = 0.6 oz pure alcohol)PHQ-2AnswerDate RecordedPatient Health Questionnaire-2 Ptjyr27405/03/2024 Estimated Date of YdmgjqcbYecizbghXml79/05/2026ased on last menstrual period of 07/28/2024Sex and Gender InformationValueDate RecordedSex Assigned at BirthNot on fileLegal FwoUecdag11/15/2023 11:19 PM EDTGender IdentityNot on file Sexual OrientationNot on file Last Filed Vital Signs Vital SignReadingTime TakenCommentsBlood Ciivubuo783/7003/10/2025 10:01 AM EST Pulse--Temperature--Respiratory Rate--Oxygen Saturation--Inhaled Oxygen Concentration--Ffirvu99.6 kg (210 lb 12.8 oz)03/10/2025 10:01 AM ICQXktukm433.6 cm (5' 6 )11/19/2023 1:48 PM EDTBody Mass Index34.02011/19/2023 1:48 PM EDT Plan of Treatment DateTypeDepartmentCare Team (Latest Contact Info)Mxlfmxwopqa25/26/2025 11:10 AM ESTRoutine [facility] [address] [facility] [place] [address] Mya Herrmann DO [address] [facility] [address] [place], [place] [phone] Health MaintenanceDue DateLast DoneCommentsHPV/Giuaoo7110/22/2015COVID-19 Vaccine ( season)2024Influenza Vaccine (#1)2024ervical Cancer Mrchroyny62/18/2025Pap Smearneumococcal Vaccine: Pediatrics (0 to 5 Years) and At-Risk Patients (6 to 64 Years)Aged OutNo longer eligible based on patient's age to complete this topic Procedures Procedure NamePriorityDate/TimeAssociated DiagnosisCommentsPOCT URINALYSIS TNUCXNWWXbzqxcj83/11/2025 10:06 AM EST 32 weeks gestation of ([facility]) Third trimester ([facility]) US OB BPP W NON-RXINBM1303/06/2025 8:10 AM EST US OB BPP W NON-NIRXSK6002/27/2025 10:53 AM EDT POCT URINALYSIS ADEEFFPKNfwxhjt03/27/2025 9:38 AM EDT 30 weeks gestation of ([facility]) US OB TJUGYV8002/20/2025 8:37 AM EDT US OB BPP W NON-LOEFFF0902/20/2025 8:37 AM EDT ALL THYROID STIM FWTNPSHBxafrqf79/21/2025 1:31 PM EDT ALL CBC WITH AUTO GRIJBrytvcc78/21/2025 1:31 PM EDT POCT URINALYSIS NCWXEBBLUkhplbh26/13/2025 10:55 AM EDT 28 weeks gestation of ([facility]) POCT URINALYSIS AMSHLHTFTdnwnub74/22/2025 9:33 AM EDT Second trimester ([facility]) POCT URINALYSIS HOBBBRFPMawlfed54/08/2025 3:25 PM EDT Second trimester ([facility]) US OB CERVICAL FZCTCX8912/16/2024 8:41 PM EDT [facility] URINE MICROSCOPIC FVXKTumlzlw91/19/2025 6:32 PM EDT [facility] UA (CLEAN/CATCH) [facility] N[facility]SE STAFF/MICRO IF IND.Lzpjnsn6512/16/2024 6:32 PM EDT ALL THYROID STIM PSHWLPHDfjvedw51/14/2025 10:50 AM EDT POCT URINALYSIS RIRDGMYIYjfpzwd33/14/2025 9:36 AM EDT 19 weeks gestation of ([facility]) Second trimester ([facility]) PAP XVSXIJagbwvl16/18/2022 12:00 AM EDTfrom Last 3 Months or Most Recently Relevant to Health Maintenance Results * (ABNORMAL) POCT urinalysis dipstick manually resulted (03/10/2025 10:06 AM EST) Only the most recent of6 resultswithin the time period is included. ComponentValueRef RangeTest MethodAnalysis TimePerformed AtPathologist Signature Color, UAYellowClarity, UAClearGlucose, UANegativeNegative - 2000(110) ++++ mg/dLBilirubin, UANegativeNegative - 4(70) +++ mg/dLKetones, UANegativeNegative - 160(16) ++++ mg/dLSpec Grav, UA1.0101 - 1.03Blood, UANegativeNegative - 50 Max/mcLpH, UA6.05 - 9Protein, UANegativeNegative - 2000(20) ++++ mg/dL Urobilinogen, UA1.00.2 - 12 mg/dLLeukocytes, UAPositiveNegative - 500+++ John/mcL Comment:2+Nitrite, UANegativeNegative - PositiveSpecimen (Source)Anatomical Location / LateralityCollection Method / VolumeCollection TimeReceived TimeUrine 03/10/2025 10:06 AM EST Narrative Authorizing ProviderResult TypeResult StatusCorey Montez DOPOINT OF CARE TEST ENTER/EDIT ORDERABLESFinal Result * US OB BPP W NON-STRESS (03/06/2025 8:10 AM EST) Only the most recent of3 resultswithin the time period is included. Anatomical RegionLateralityModalityOtherSpecimen (Source)Anatomical Location / LateralityCollection Method / VolumeCollection TimeReceived Time03/06/2025 8:10 AM EST Narrative 03/06/2025 8:13 AM EST [facility] ?[address] ? [place] [address] ? Ultrasound Report ? Signed ? Patient: MADHU RENDON ?MR#: [id number] ?? : 1985 ?Acct:[id number] ?? Age/Sex: 39 / F ?ADM Date: 03/05/25 ?? Loc: US ? Attending Dr: Mya Herrmann D.O. ? Ordering Physician: Mya Herrmann D.O. ?? Date of Service: 03/05/25 ?? Procedure(s): US OB BPP w non-stress ?? Accession Number(s): [id number] ? cc: Mya Herrmann D.O.; Physician,Non-Staff M.D. ? [facility] ? [address] ? [place] [address] ? Patient Name: ?? MADHU RENDON ? MRN: [facility]:[id number] ? date: 1985 ?Sex: F ?? Assigned Patient Location: FB ?? Current Patient Location: ? Accession/Order Number: [id number] ?? Exam Date: 03/05/2025 ??19:15 ?Report Date: [...] M.D. ??03/06/2025 8:10 AM ? Dictation Location: [facility]02 ? Electronically authenticated by: [id number] ??Y ?? Date: 03/06/2025 ??08:10 ? Dictated By: ?Pamela Pisano M.D. ? Signed By: ?03/06/25 08 ? DD/ 0810 ? TD/TT: ? Computerized Table Cutter: Procedure Note Radiology, Radiologist, - 03/06/[address] [address] Ultrasound Report Signed Patient: MADHU RENDON [facility]#: [id number] : 1985Acct:[id number] Age/Sex: 39 / FADM Date: 03/05/25 Loc: US Attending Dr: Mya Herrmann D.O. Ordering Physician: Mya Herrmann D.O. Date of Service: 03/05/25 Procedure(s): US OB BPP w non-stress Accession Number(s): [id number] cc: Mya Herrmann D.O.; Physician,Non-Staff [place] [address] Patient Name: MADHU RENDON MRN: [facility]:[id number] date: 1985 Sex: F Assigned Patient Location: [facility] Current Patient Location: Accession/Order Number: [id number] Exam Date: 03/05/2025 19:15 Report Date: 03/06/2025 [...] Pisano M.D. 03/06/2025 8:10 AM Dictation Location: [place] [address] Electronically authenticated by: [id number] Y Date: 508:10 Dictated By: Pamela Pisano M.D. Signed By:03/06/25812 DD/ 9 TD/TT: Computerized Table Cutter: Authorizing ProviderResult TypeResult StatusCorecarmen Mnotez DAMIÁNISYNC IMAGINGFinal Result * US OB GROWTH (02/20/2025 8:37 AM EDT)Anatomical RegionLateralityModalityOther Specimen (Source)Anatomical Location / LateralityCollection Method / Volume Collection TimeReceived Time02/20/2025 8:37 AM EDT Narrative 02/20/2025 8:40 AM EDT [facility] ?[address] ? [place], [facility] ? Ultrasound Report ? Signed ? Patient: JUSTICE,MADHU S ?MR#: [id number] ?? : 1985 ?Acct:[id number] ?? Age/Sex: 39 / F ?ADM Date: 02/19/25 ?? Loc: US ? Attending Dr: Mya Herrmann D.O. ? Ordering Physician: Mya Herrmann D.O. ?? Date of Service: 02/19/25 ?? Procedure(s): US OB growth ?? Accession Number(s): [id number] ? cc: Mya Herrmann D.O.; Physician,Non-Staff M.D. ? [facility] ? [address] ? [place] [address] ? Patient Name: ?? MADHU RENDNO ? MRN: [facility]:[id number] ? date: 1985 ?Sex: F ?? Assigned Patient Location: LAB ?? Current Patient Location: ? Accession/Order Number: [id number] ?? Exam Date: 02/19/2025 ??19:47 ?Report Date: [...] Dictation Location: [facility]02 ? Electronically authenticated by: [id number] ??Y ?? Date: 02/20/2025 ??08:37 ? Dictated By: ?Pamela Pisano M.D. ? Signed By: ?02/20/25 0840 ? DD/ 0837 ? TD/TT: ? Computerized Table Cutter: Procedure Note Radiology, Radiologist, MD - 02/20/[address] [address] Ultrasound Report Signed Patient: MADHU RENDON [facility]#: [id number] : 1985Acct:[id number] Age/Sex: 39 / FADM Date: 02/19/25 Loc: US Attending Dr: Mya Herrmann D.O. Ordering Physician: Mya Herrmann D.O. Date of Service: 02/19/25 Procedure(s): US OB growth Accession Number(s): [id number] cc: Mya Herrmann D.O.; Physician,Non-Staff [place] [id number] Patient Name: MADHU RENDON MRN: [facility]:[id number] date: 1985 Sex: F Assigned Patient Location: LAB Current Patient Location: Accession/Order Number: [id number] Exam Date: 02/19/2025 19:47 Report Date: 02/20/2025 [...] Pisano M.D. 02/20/2025 8:37 AM Dictation Location: [place] [address] Electronically authenticated by: [id number] Y Date: 508:37 Dictated By: Pamela Pisano M.D. Signed By:02/20/25839 DD/ 6 TD/TT: Computerized Table Cutter: Authorizing ProviderResult TypeResult StatusCorey Montez DOCLINISYNC IMAGINGFinal Result * ALL THYROID STIM HORMONE (02/17/2025 1:31 PM EDT) Only the most recent of2 resultswithin the time period is included. ComponentValueRef RangeTest MethodAnalysis TimePerformed AtPathologist Signature THYROID STIMULATING HORMONE1.7450.358 - 3.740 uIU/mLTBHSpecimen (Source) Anatomical Location / LateralityCollection Method / VolumeCollection Time Received Time02/17/2025 1:31 PM EDT1 1:36 PM EDT Narrative [facility] - 02/17/2025 2:40 PM EDT Authorizing ProviderResult TypeResult StatusCorey Montez DOCLINISYNCFinal Result Performing OrganizationAddressCity/State/ZIP CodePhone Number [facility] * (ABNORMAL) ALL CBC WITH AUTO DIFF (02/17/2025 1:31 PM EDT)ComponentValueRef RangeTest MethodAnalysis TimePerformed AtPathologist SignatureTBH WBC9.64.0 - 11.0 10 3/uLTBHTBH RBC3.82(L)4.20 - 5.40 10 6/uLTBHTBH HGB12.112.0 - 16.0 g/dL TBHTBH HCT34.6(L)36.0 - 48.0 %TBHTBH MCV90.681.0 - 99.0 fLTBHTBH MCH31.726.7 - 34.0 pgTBHTBH MCHC35.029.9 - 35.2 g/dLTBHTBH RDW13.111.0 - 15.0 %TBHTBH PLT 282784 - 450 10 3/uLTBHTBH MPV9.79.5 - 13.5 fLTBHNEUTROPHILS PERCENT AUTO69.0 43.0 - 75.0 %TBHLYMPHOCYTES PERCENT AUTO24.320.5 - 60.0 %TBHMONOCYTES PERCENT AUTO5.61.7 - 12.0 %TBHTBH EO %0.3(L)0.9 - 7.0 %TBHBASOPHILS PERCENT AUTO0.20.2 - 2.0 %TBHIMMATURE GRANULOCYTES PCT AUTO0.6(H)0.0 - 0.5 %TBHNEUTROPHILS ABSOLUTE AUTO6.6(H)1.4 - 6.5 10 3/uLTBHLYMPHOCYTES ABSOLUTE AUTO2.31.2 - 3.8 10 3/uLTBHMONOCYTES ABSOLUTE AUTO0.50.3 - 0.8 10 3/uLTBHTBH EO #0.00.0 - 0.7 10 3/uLTBHBASOPHILS ABSOLUTE AUTO0.00.0 - 0.1 10 3/uLTBHIMMATURE GRANULOCYTES ABS AUTO0.06(H)0.00 - 0.03 10 3/uLTBHSpecimen (Source)Anatomical Location / LateralityCollection Method / VolumeCollection TimeReceived Time02/17/2025 1:31 PM EDT1 1:36 PM EDT Narrative [facility] - 02/17/2025 1:42 PM EDT Authorizing ProviderResult TypeResult StatusCorey Montez DOCLINISYNCFinal Result Performing OrganizationAddressCity/State/ZIP CodePhone Number [facility]IN[facility] * US OB CERVICAL LENGTH (12/16/2024 8:41 PM EDT)Anatomical RegionLaterality ModalityOtherSpecimen (Source)Anatomical Location / LateralityCollection Method / VolumeCollection TimeReceived Time12/16/2024 8:41 PM EDT Narrative 12/16/2024 8:43 PM EDT [facility] ?[address] ? [place] [address] ? Ultrasound Report ? Signed ? Patient: MADHU RENDON ?MR#: [id number] ?? : 1985 ?Acct:[id number] ?? Age/Sex: 39 / F ?ADM Date: ?? Loc: [facility] ??251-1 ? Attending Dr: Mya Herrmann D.O. ? Ordering Physician: Mya Herrmann D.O. ?? Date of Service: 12/16/24 ?? Procedure(s): US OB cervical length ?? Accession Number(s): [id number] ? cc: Mya Herrmann D.O.; PENELOPE CASAS ? [facility] ? [address] ? [place] [address] ? Patient Name: ?? MADHU RENDON ? MRN: [facility]:[id number] ? date: 1985 ?Sex: F ?? Assigned Patient Location: FB ?? Current Patient Location: ? Accession/Order Number: [id number] ?? Exam Date: 12/16/2024 ??20:39 ?Report Date: [...] M.D. ??12/16/2024 8:41 PM ? Dictation Location: [facility] ? Electronically authenticated by: [id number] ??Y ?? Date: 12/16/2024 ??20:41 ? Dictated By: ?Robert Beltrán D.O. ? Signed By: ?12/16/242042 ? DD/ 40 ? TD/TT: ? Computerized Table Cutter: Procedure Note Radiology, Radiologist, MD - 12/16/2024 [place] [address] Ultrasound Report Signed Patient: MADHU RENDON [facility]#: [id number] : 1985Acct:[id number] Age/Sex: 39 / FADM Date: Loc: [facility] 251-[address]: Mya Herrmann D.O. Ordering Physician: Mya Herrmann D.O. Date of Service: 12/16/24 Procedure(s): US OB cervical length Accession Number(s): [id number] cc: Mya Herrmann D.O.; PENELOPE CASAS [address] [address] Patient Name: MADHU RENDON MRN: [facility]:[id number] date: 1985 Sex: F Assigned Patient Location: [facility] Current Patient Location: Accession/Order Number: [id number] Exam Date: 12/16/2024 20:39 Report Date: 12/16/2024 [...] Beltrán M.D. 12/16/2024 8:41 PM Dictation Location: [place] [address] Electronically authenticated by: [id number] Y Date: 0:41 Dictated By: Robert Beltrán D.O. Signed By:12/16/242042 DD/ 40 TD/TT: Computerized Table Cutter: Authorizing ProviderResult TypeResult StatusCorey Montez DOCLINISYNC IMAGINGFinal Result * (ABNORMAL) [facility] URINE MICROSCOPIC ONLY (12/16/2024 6:32 PM EDT)ComponentValue Ref RangeTest MethodAnalysis TimePerformed AtPathologist SignatureTBH WBC2-5 (A)NONE SEEN #/HPFTBHTBH RBC0-20 - 2 #/HPFTBHBACTERIA URINESMALL(A)NONE SEEN #/HPFTBHMUCUS URINENONE SEENNONE SEENTBHSQUAMOUS EPITHELIAL CELL URINEMANY(A) NONE/RARE #/LPFTBHCRYSTALS SEEN?None SeenNone Seen #/HPFTBHCAST SEEN?NONE SEEN NONE SEEN #/LPFTBHURINE CULTURE INDICATEDYES-LCTBHSpecimen (Source)Anatomical Location / LateralityCollection Method / VolumeCollection TimeReceived Time 12/16/2024 6:32 PM EDT12/16/2024 6:40 PM EDT Narrative [facility] - 12/16/2024 7:09 PM EDT Authorizing ProviderResult TypeResult StatusCorey Montez DOCLINISYNCFinal Result Performing OrganizationAddressCity/State/ZIP CodePhone Number [facility] * (ABNORMAL) [facility] UA (CLEAN/CATCH) [facility] NURSE STAFF/MICRO IF IND. (12/16/2024 6:32 PM EDT) ComponentValueRef RangeTest MethodAnalysis TimePerformed AtPathologist SignatureCOLOR URINELT. YELLOWYELLOWTBHCLARITY URINECLEARCLEARTBHSPECIFIC GRAVITY URINE<=1.005(A)1.005 - 1.025TBHPH URINE6.05.0 - 9.0TBHPROTEIN URINE NEGATIVENEG/TRACE mg/dLTBHGLUCOSE URINE UANEGATIVENEGATIVE mg/dLTBHBILIRUBIN URINENEGATIVENEGATIVETBHKETONES URINENEGATIVENEGATIVE mg/dLTBHBLOOD URINE NEGATIVENEGATIVETBHNITRITE URINENEGATIVENEGATIVETBHUROBILINOGEN URINE0.20.2 - 1.0 EU/dLTBHLEUKOCYTE ESTERASE URINESMALL(A)NEGATIVETBHURINE MICROSCOPIC INDICATEDYESTBHSpecimen (Source)Anatomical Location / LateralityCollection Method / VolumeCollection TimeReceived Time12/16/2024 6:32 PM EDT12/16/2024 6:40 PM EDT Narrative [facility] - 12/16/2024 7:09 PM EDT Authorizing ProviderResult TypeResult StatusCorey Montez DOCLINISYNCFinal Result Performing OrganizationAddressCity/State/ZIP CodePhone Number [facility] * Pap Smear (02/14/2022 12:00 AM EDT)Specimen (Source)Anatomical Location / LateralityCollection Method / VolumeCollection TimeReceived TimeSwabCervical swab / Unknown Narrative Authorizing ProviderResult TypeResult StatusFazio Nurse Noms Bcp ObLAB CYTOLOGY ORDERABLESFinal ResultPerforming OrganizationAddressCity/State/ZIP CodePhone Number EXTERNAL LAB from Last 3 Months or Most Recently Relevant to Health Maintenance Insurance Care Teams Team MemberRelationshipSpecialtyStart DateEnd Date Penelope Casas MD [address] [place] [address] PCP - GeneralFamily Medicine11/07/23
--- OUTSIDE RECORDS SUMMARY | 2025-03-12 19:10 | XMS_ITS | Encounter Summary ---
Author Organization [facility] Address [address] [place] [address] Care Team Providers Care Nuclear Powerplant Mechanic Helper Name Role Phone Evans Casas MD Primary Care Provider [phone] Encounter Details DateTypeDepartmentCare Team (Latest Contact Info)Qlmjtwxshzy05/31/2025linisync Result Encounter [facility] External Department Unsolicited Mya Herrmann DO [address] [place] [address] Social History Tobacco UseTypesPacks/DayYears UsedDateSmoking Tobacco: NeverSmokeless Tobacco: NeverAlcohol UseStandard Drinks/WeekCommentsNever0 (1 standard drink = 0.6 oz pure alcohol)PHQ-2AnswerDate RecordedPatient Health Questionnaire-2 Score0 01/06/2025Estimated Date of KnawqxfsDfwbscstVim45/05/2026Based on last menstrual period of 07/28/2024Sex and Gender InformationValueDate RecordedSex Assigned at BirthNot on fileLegal RpzXgffcl09/15/2023 11:19 PM EDTGender IdentityNot on fileSexual OrientationNot on filedocumented as of this encounter Plan of Treatment DateTypeDepartmentCare Team (Latest Contact Info)Xfqdhmbeonl13/26/2025 11:10 AM ESTRoutine [facility] [address] [place] [phone] Mya Herrmann DO [address] [place] [address] documented as of this encounter Procedures Procedure NamePriorityDate/TimeAssociated DiagnosisCommentsUS OB BPP W NON-TXRGUT4902/27/2025 10:53 AM EDT documented in this encounter Results * US OB BPP W NON-STRESS (02/27/2025 10:53 AM EDT)Anatomical Region LateralityModalityOtherSpecimen (Source)Anatomical Location / Laterality Collection Method / VolumeCollection TimeReceived Time02/27/2025 10:53 AM EDT Narrative 02/27/2025 10:56 AM EDT [facility] ?[address] ? [place], [place] [address] ? Ultrasound Report ? Signed ? Patient: SANNA RENDON S ?MR#: [id number] ?? : 1985 ?Acct:[id number] ?? Age/Sex: 39 / F ?ADM Date: 02/26/25 ?? Loc: US ? Attending Dr: Mya Herrmann D.O. ? Ordering Physician: Mya Herrmann D.O. ?? Date of Service: 02/26/25 ?? Procedure(s): US OB BPP w non-stress ?? Accession Number(s): [id number] ? cc: Mya Herrmann D.O.; Physician,Non-Staff M.D. ? [facility] ? [address] [facility] ? [place] [address] ? Patient Name: ?? SANNA RENDON ? MRN: [facility]:[id number] ? date: 1985 ?Sex: F ?? Assigned Patient Location: [place] ?? Current Patient Location: ? Accession/Order Number: [id number] ?? Exam Date: 02/26/2025 ??19:42 ?Report Date: [...] Dictation Location: RADIO-PC-02 ? Electronically authenticated by: [id number] ??Y ?? Date: 02/27/2025 ??10:53 ? Dictated By: ?Pamela Pisano M.D. ? Signed By: ?10/31/25 1056 ? DD/ 1053 ? TD/TT: ? Solid Waste Collector: Procedure Note Radiology, Radiologist, - 02/27/2025 [place] [address] Ultrasound Report Signed Patient: SANNA RENDON SMR#: [id number] : 1985Acct:[id number] Age/Sex: 39 / FADM Date: 02/26/25 Loc: US Attending Dr: Mya Herrmann D.O. Ordering Physician: Mya Herrmann D.O. Date of Service: 02/26/25 Procedure(s): US OB BPP w non-stress Accession Number(s): [id number] cc: Mya Herrmann D.O.; Physician,Non-Staff M.D. The [place] [id number] Patient Name: SANNA RENDON MRN: [facility]:[id number] date: 1985 Sex: F Assigned Patient Location: [place] Current Patient Location: Accession/Order Number: [id number] Exam Date: 02/26/2025 19:42 Report Date: 02/27/2025 [...] Pisano M.D. 02/27/2025 10:53 AM Dictation Location: [place] [address] Electronically authenticated by: [id number] Y Date: 0:53 Dictated By: Pamela Pisano M.D. Signed By:02/27/25 1056 DD/ 1053 TD/TT: Solid Waste Collector: Authorizing ProviderResult TypeResult StatusCorey Montez DOCLINISYNC IMAGINGFinal Result documented in this encounter Visit Diagnoses Not on filedocumented in this encounter Care Teams Team MemberRelationshipSpecialtyStart DateEnd Date Evans Casas MD [address] [place] [address] PCP - GeneralFamily Medicine11/07/23documented as of this encounter
--- OUTSIDE RECORDS SUMMARY | 2025-03-12 19:10 | XMS_ITS | Encounter Summary ---
Author Organization [facility] [employer] s tem Address [facility] [address] [place] [address] Care Team Providers Care Strategic Analyst Name Role Phone Evans Casas DO Primary Care Provider [phone] Encounter Details DateTypeDepartmentCare Team (Latest Contact Info)Wwuqptsueoi84/12/2025Travel Social History Tobacco UseTypesPacks/DayYears UsedDateSmoking Tobacco: NeverSmokeless Tobacco: NeverAlcohol UseStandard Drinks/WeekCommentsNot Currently0 (1 standard drink = 0.6 oz pure alcohol)ChildcareAnswerDate RqdrkanoWtniuldkpTmdalvu97/31/2019 EmploymentAnswerDate RfibsuvwBessiflywcKukfpkj37/31/2019Hunger ScreeningAnswer Date RecordedWithin the past 12 months we worried whether our food would run out before we got money to buy more.Never True01/01/2025Within the past 12 months the food we bought just didn't last and we didn't have money to get more.Never True01/01/2025Purpose - LifeAnswerDate RecordedPurpose and direction in life Yfjrmvq21/11/2021Estimated Date of TrhacelnXxgxxrgtKkg69/05/2026Based on last menstrual period of 07/28/2024Sex and Gender InformationValueDate Recorded Sex Assigned at BirthNot on fileLegal PxdUwrptx49/31/2019 12:25 PM EDTGender IdentityNot on fileSexual OrientationNot on filedocumented as of this encounter Plan of Treatment DateTypeDepartmentCare Team (Latest Contact Info)Cdiheaqdupi61/18/2025 8:30 AM ESTTelemedicine [facility] Department of [address] [phone] Sam Callahan MD MPH [address] [place] [phone] 04/07/2025 1:30 PM ESTTelemedicine Maternal- [facility] at [facility] [address] [place] [address] Davida Smith PA-C [address] [address] documented as of this encounter Visit Diagnoses Not on filedocumented in this encounter Care Teams Team MemberRelationshipSpecialtyStart DateEnd Date Evans Casas DO PCP - GeneralFamily Medicine07/07/19documented as of this encounter
--- OUTSIDE RECORDS SUMMARY | 2025-03-12 19:10 | XMS_ITS | Encounter Summary ---
Author Organization [facility] Address [address] [place] [address] Care Team Providers Care Immunology Specialist Name Role Phone Jonny Wilcox MD Unavailable [phone] Cosmo Elliott MD Unavailable [phone] Davida Restrepo RN Unavailable [phone] Evans Casas DO Primary Care Provider [phone] Source Comments In the event this information is protected by the Federal Confidentiality of Alcohol and Drug AbusePatient Records regulations: The Federal rules restrict any use of the information to criminally investigate or prosecute any alcohol or drug abuse patient.[facility] Encounter Details DateTypeDepartmentCare Team (Latest Contact Info)Dwraxlvkcbm18/03/2025Travel Social History Tobacco UseTypesPacks/DayYears UsedDateSmoking Tobacco: NeverSmokeless Tobacco: NeverAlcohol UseStandard Drinks/WeekCommentsNo0 (1 standard drink = 0.6 oz pure alcohol)PHQ-2AnswerDate RecordedPHQ-2 [id number] Deprivation Index AnswerDate RecordedNational Score (1-100), lower number is lower risk58 09/28/2022State Score (1-10), lower number is lower [id number] from: https://www.neighborhoodatlas.medicine.[facility].edu/. Last address used for [address]Estimated Date of DeliveryCommentsYes 07/28/2024Sex and Gender InformationValueDate RecordedSex Assigned at BirthNot on fileLegal QnaFmsuke33/29/2018 10:06 AM ESTGender IdentityNot on fileSexual OrientationNot on fileOccupationIndustryJob Start DateJob End Datestay at home momNot on fileNot on fileNot on filedocumented as of this encounter Plan of Treatment DateTypeDepartmentCare Team (Latest Contact Info)Dfnqdsfqakj53/01/2025 8:00 AM ESTOffice Visit [facility] [address] [place] [address] [place] [address] Return in 4 weeks lab and possible iron03/30/2025 8:20 AM ESTVisit (SP) Office Hematology/Oncology [address] [place] [address] [place] [address] Salvador Dos Santos MD [address] [place] [address] [place] [address] Return in 4 weeks lab and possible iron03/30/2025 8:30 AM [facility] Hematology/Oncology [address] [place] [address] [place] [address] Return in 4 weeks lab and possible irondocumented as of this encounter Visit Diagnoses Not on filedocumented in this encounter Care Teams Team MemberRelationshipSpecialtyStart DateEnd Date Evans Casas DO [address] [place] [address] PCP - GeneralFamily Vrttibbw91/3/22 Jonny Wilcox MD [address] [place] [address] Primary Staff PhysicianCardiology07/16/18 [place] [address] [place] [address] PhysicianHematology/Oncology09/14/21 Davida Restrepo, RN [address] [place] [address] Specialty Care CoordinatorHematology/Oncology09/14/21documented as of this encounter
--- OUTSIDE RECORDS SUMMARY | 2025-03-12 19:10 | XMS_ITS ---
Author Organization [facility] Address [address] [place] [address] Care Team Providers Care Diesel Locomotive Firer/Fireman Name Role Phone Evans Casas MD Primary Care Provider [phone] [facility] ([facility]) Status:Closed (Closed) Start date:12/03/2024 Enrollment date:12/08/2024 Enrollment reason:Identified by Health Plan End date:03/03/2025 Close reason:No longer wishes to participate in care management Continued Care and Services Coordination
--- OUTSIDE RECORDS SUMMARY | 2025-03-12 19:10 | XMS_ITS | Clinical Summary ---
Author Organization [facility] [place] Address [address] [place] [address] Care Team Providers Care Metallographer Name Role Phone Jonny Wilcox MD Unavailable [phone] Cosmo Elliott MD Unavailable [phone] Davida Restrepo RN Unavailable [phone] Evans Casas DO Primary Care Provider [phone] Allergies Active AllergyReactionsCriticalityNoted DateCommentsCiprofloxacinOther: See Comments,Tyiymyt4305/19/2019 Dizziness, weakness sweating Ciprofloxacin-FluocinoloneOther: See Fzjfailv94/20/2020 Dizziness, weakness sweating LactalbuminUnknown,GI MdvrqCtc70/26/2018 Crampy and gassy LactoseGI Upset09/10/2017 Diarrhea MilkOther: See ZmnukhceQrt29/26/2018 Crampy and gassy Diarrhea Other reaction(s): GI Upset Crampy and gassy Milk Containing Products (Dairy)Other: See SdaqyxgjRvl60/26/2018 Crampy and gassy Diarrhea Other reaction(s): GI Upset Crampy and gassy Seasonal AllergiesGI Upset,Other: See Orectgym73/06/2021 Medications MedicationSigDispense QuantityRefillsLast FilledStart DateEnd DateStatus multivitamin [...] MEAL(S)Active Active Problems ProblemNoted DateDiagnosed DateAntiphospholipid antibody /29/2025 Vitamin D mmeffmrizn55/29/2025Primary hypercoagulable state08/01/2022VA, old, speech/language pnvwvxz0208/01/2022Iron deficiency anemia secondary to blood loss (chronic)03/27/2022Iron deficiency anemia of swhtucerb93/28/2022nti-cardiolipin antibody siptylpu87/29/2018Migraine with aura and without status migrainosus, not tzrnllehpln77/16/2018Antiphospholipid antibody tsxlszpe99/14/2018Fatigue 12/29/2016Pain in joint12/29/2016Estimated Date of DeliveryCommentsYes 07/28/2024 Encounters DateTypeDepartmentCare ZdzyEyextgptlby79/03/2025 11:30 AM ESTVisit (SP) Office Hematology/Oncology [address] [place] [address] [place] [address] 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 Antiphospholipid antibody positive (Primary Dx); Iron deficiency anemia secondary to blood loss (chronic); Vitamin D deficiency; Primary hypercoagulable state (HCC); CVA, old, speech/language deficit; Gestational diabetes mellitus (GDM) in third trimester, gestational diabetes method of control unspecified (HCC); History of hemorrhage; Anemia complicating , third trimester (HCC)03/02/20256034Ojlgln47/02/2025 Telephone Hematology/Oncology [address] [place] [address] [place] [address] Rachael Johnson RN Pkmkmdq9901/26/2025Telephone Hematology/Oncology [address] [place] [address] [place] [address] Rachael Johnson RN 12/23/2024 11:30 AM EDTVisit (SP) Office Hematology/Oncology [address] [place] [address] [place] [address] 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 Antiphospholipid antibody positive (Primary Dx); Iron deficiency [...] drink = 0.6 oz pure alcohol)PHQ-2AnswerDate RecordedPHQ-2 abfne9624Area Deprivation Index AnswerDate RecordedNational Score (1-100), lower number is lower risk58 09/28/2022State Score (1-10), lower number is lower hsdj8223Data from: https://www.neighborhoodatlas.medicine.[facility].edu/. Last address used for [address]Estimated Date of DeliveryCommentsYes 07/28/2024Sex and Gender InformationValueDate RecordedSex Assigned at BirthNot on fileLegal YavAzfpyl15/29/2018 10:06 AM ESTGender IdentityNot on fileSexual OrientationNot on fileOccupationIndustryJob Start DateJob End Datestay at home momNot on fileNot on fileNot on file Last Filed Vital Signs Vital SignReadingTime TakenCommentsBlood Mdubqmeh057/7911 11:56 AM EST Dlfuq327703/02/2025 11:56 AM TGRExckmtycyjx15.2 ??C (97.2 ??F)03/02/2025 11:56 AM ESTRespiratory Lmya701705/02/2024 11:56 AM ESTOxygen Wuxllrrlmr13%03/02/2025 11:56 AM ESTInhaled Oxygen Concentration--Idlxrm86.2 kg (214 lb 4.6 oz)03/02/2025 11:56 AM YYXYqtexh051.7 cm (5' 6.02 )12/23/2024 11:34 AM EDTBody Mass Index34.56 12/23/2024 11:34 AM EDT Plan of Treatment DateTypeDepartmentCare Team (Latest Contact Info)Ndgazjvcqzt31/01/2025 8:00 AM ESTOffice Visit [facility] [address] [place] [address] [place] [address] Return in 4 weeks lab and possible iron03/30/2025 8:20 AM ESTVisit (SP) Office Hematology/Oncology [address] [place] [address] [place] [address] Salvador Dos Santos MD [address] [place] [address] [place] [address] Return in 4 weeks lab and possible iron03/30/2025 8:30 AM ESTInfgran[facility] Hematology/Oncology [address] [place] [address] [place] [address] Return in 4 weeks lab and possible ironHealth MaintenanceDue DateLast Done CommentsAnxiety Autdekgme36/24/2004Depression Pkufqfrpu40/24/2004HIV Screening 10/22/2003Hepatitis C Nawczxvcc24/24/2004Hepatitis B Vaccine (1 of 3 - 19+ 3- dose series)2004HPV Vaccine (1 - 3-dose SCDM series)2012Cervical Cancer Wuzfttdzo08/10/2017DTaP,Tdap,Td Vaccine (2 - Td or Tdap) Covid-19 Vaccine ( - season)2024Influenza Vaccine (#1) (Patient/Parent/Guardian Counseled and Declines)RSV Vaccine (1 - 1-dose 75+ series)2060 Procedures Procedure NamePriorityDate/TimeAssociated DiagnosisCommentsCOMPREHENSIVE METABOLIC QWQLOAkttthf29/03/2025 11:40 AM EST 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) Vitamin D deficiency Primary hypercoagulable state (HCC) CBC + USZQQkewdom07/03/2025 11:40 AM EST 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) Vitamin D deficiency Primary hypercoagulable state (HCC) VITAMIN D 25 OBIGPHPGnwocxl70/03/2025 11:40 AM EST 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) Vitamin D deficiency VITAMIN B12 GYCCKZeledwa86/26/2025 11:28 AM EDT Primary hypercoagulable state (HCC) CVA, old, speech/language deficit Cerebral hyponatremia Personal history of TIA (transient ischemic attack) IRON + WBFTLnsqslz24/26/2025 11:28 AM EDT Primary hypercoagulable state (HCC) CVA, old, speech/language deficit Cerebral hyponatremia Personal history of TIA (transient ischemic attack) FERRITIN QQLLqqgrkj28/26/2025 11:28 AM EDT Primary hypercoagulable state (HCC) CVA, old, speech/language deficit Cerebral hyponatremia Personal history of TIA (transient ischemic attack) COMPREHENSIVE METABOLIC GBNDAJjdoloa03/26/2025 11:28 AM EDT Primary hypercoagulable state (HCC) CVA, old, speech/language deficit Cerebral hyponatremia Personal history of TIA (transient ischemic attack) CBC + ZYLYWsxusyw03/26/2025 11:28 AM EDT Primary hypercoagulable state (HCC) CVA, old, speech/language deficit Cerebral hyponatremia Personal history of TIA (transient ischemic attack) from Last 3 Months Results * VITAMIN D 25 HYDROXY (03/02/2025 11:40 AM EST)ComponentValueRef RangeTest MethodAnalysis TimePerformed AtPathologist SignatureVitamin D 25 Dypvqho98.6 31.0 - 80.0 ng/mL03/02/2025 9:47 PM ESTPAULD[facility] MAIN LABSpecimen (Source)Anatomical Location / LateralityCollection Method / VolumeCollection TimeReceived TimeBloodBLOOD SPECIMEN / UnknownVenipuncture / Jygukek8503/02/2025 11:40 AM EST03/02/2025 11:41 AM EST Narrative Authorizing ProviderResult TypeResult StatusHolly Arsh OCHOACNPLABORATORY Final ResultPerforming OrganizationAddressCity/State/ZIP CodePhone Number [facility] [address] * (ABNORMAL) COMPREHENSIVE METABOLIC PANEL (03/02/2025 11:40 AM EST) Only the most recent of2 resultswithin the time period is included. ComponentValueRef RangeTest MethodAnalysis TimePerformed AtPathologist Signature Protein, Total7.26.3 - 8.0 g/dL03/02/2025 2:01 PM ESTNOR[facility]CO[facility] LABAlbumin4.13.9 - 4.9 g/dL03/02/2025 2:01 PM ESTNOR[facility]CO[facility] LABCalcium, Total10.3(H)8.5 - 10.2 mg/dL03/02/2025 2:01 PM EST [facility] LABBilirubin, Total0.20.2 - 1.3 mg/dL 03/02/2025 2:01 PM ESTNOR[facility]CO[facility] LABAlkaline Phosphatase 6434 - 123 U/L105/02/2024 2:01 PM ESTNORTHCBRON[facility] LAKEVIEW [facility] KMAWZR95 (L)13 - 35 U/L105/02/2024 2:01 PM ESTNORTHCBRONSON LAKEVIEW [facility]OSPITAL FQTEYK650 - 38 U/L105/02/2024 2:01 PM [facility] IGCIdmwrgm88(L) 74 - 99 mg/dL03/02/2025 2:01 PM [facility] LABComment: The [place] Diabetes Association (ADA) provides guidance for cutoff [...] Standards of Medical Care in Diabetes 2016, [place] Diabetes Association. Diabetes Care. 2016.39(Suppl 1). BUN97 - 21 mg/dL03/02/2025 2:01 PM [facility] LAB Creatinine0.54(L)0.58 - 0.96 mg/dL03/02/2025 2:01 PM [facility] FNTVegbbq231(L)136 - 144 mmol/L105/02/2024 2:01 PM [facility] LABPotassium3.93.7 - 5.1 mmol/L105/02/2024 2:01 PM [facility] XTPGgrbiiyl85(L)98 - 107 mmol/L105/02/2024 2:01 PM [facility] OGNZH468(L)22 - 30 mmol/L105/02/2024 2:01 PM [facility] LABAnion Xey089 - 15 mmol/L105/02/2024 2:01 PM [facility] LABEstimated Glomerular Filtration Engj866>=60 mL/min/1.73m 03/02/2025 2:01 PM [facility] LABComment:Estimated Glomerular Filtration Rate (eGFR) is [...] VolumeCollection TimeReceived TimeBloodBLOOD SPECIMEN / UnknownVenipuncture / Vhgpjxr9403/02/2025 11:40 AM EST03/02/2025 11:41 AM EST Narrative Authorizing ProviderResult TypeResult StatusHolly Arsh HATHAWAYN.CNPLABORATORY Final ResultPerforming OrganizationAddressCity/State/ZIP CodePhone Number [facility] [address] [place] [phone] * (ABNORMAL) COMPLETE BLOOD COUNT AND DIFFERENTIAL (03/02/2025 11:40 AM EST) Only the most recent of2 resultswithin the time period is included. ComponentValueRef RangeTest MethodAnalysis TimePerformed AtPathologist Signature WBC8.643.70 - 11.00 k/uL03/02/2025 11:50 AM [facility] LABRBC3.71(L)3.90 - 5.20 m/uL03/02/2025 11:50 AM [facility] ULZOskehaivvp82.611.5 - 15.5 g/dL03/02/2025 11:50 AM [facility] TZPOsxpiaorhg83.0(L)36.0 - 46.0 %03/02/2025 11:50 AM EST [facility] MDXULL19.980.0 - 100.0 fL03/02/2025 11:50 AM [facility] ZLBCGV13.326.0 - 34.0 pg03/02/2025 11:50 AM ESTNORTHCBRONSON LAKEVIEW [facility] PAHSROU73.230.5 - 36.0 g/dL03/02/2025 11:50 AM [facility] LABRDW-CV13.311.5 - 15.0 %03/02/2025 11:50 AM [facility] LABPlatelet Frmha000206 - 400 k/uL 03/02/2025 11:50 AM [facility] LABMPV9.49.0 - 12.7 fL 03/02/2025 11:50 AM [facility] LABNeutrophils %64.5% 03/02/2025 11:50 AM [facility] LABAbs Neut5.571.45 - 7.50 k/uL03/02/2025 11:50 AM [facility] LABLymphocytes %26.7%03/02/2025 11:50 AM [facility] LABAbs Lymph2.31 1.00 - 4.00 k/uL03/02/2025 11:50 AM [facility] LAB Monocytes %7.3%03/02/2025 11:50 AM [facility] LABAbs Mono0.63<0.87 k/uL03/02/2025 11:50 AM [facility] LAB Eosinophils %0.7%03/02/2025 11:50 AM [facility] LABAbs Eosin0.06<0.46 k/uL03/02/2025 11:50 AM [facility] LAB Basophils %0.3%03/02/2025 11:50 AM [facility] LABAbs Baso0.03<0.11 k/uL03/02/2025 11:50 AM [facility] LAB Immature Granulocytes %0.5%03/02/2025 11:50 AM [facility] LABAbs Immature Gran0.04<0.10 k/uL03/02/2025 11:50 AM [facility] LABNRBC0.0/100 WBC03/02/2025 11:50 AM ESTNOR[facility] LABAbsolute nRBC<0.01<0.01 k/uL03/02/2025 11:50 AM EST [facility] LABDiff BapcHyws26/03/2025 11:50 AM EST [facility] LABSpecimen (Source)Anatomical Location / LateralityCollection Method / VolumeCollection TimeReceived TimeBloodBLOOD SPECIMEN / UnknownVenipuncture / Nkfbade5703/02/2025 11:40 AM EST03/02/2025 11:41 AM EST Narrative Authorizing ProviderResult TypeResult Status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 APRN.CNPLABORATORY Final ResultPerforming OrganizationAddressCity/State/ZIP CodePhone Number [facility] [address] [place] [address] * VITAMIN B12 (12/23/2024 11:28 AM EDT)ComponentValueRef RangeTest Method Analysis TimePerformed AtPathologist SignatureVitamin [id number] - 1,245 pg/mL 12/23/2024 7:00 PM EDTCCHILLICOTHE [facility]OSPITAL LABSpecimen (Source) Anatomical Location / LateralityCollection Method / VolumeCollection Time Received TimeBloodBLOOD SPECIMEN / UnknownVenipuncture / Itqjnqh6912/23/2024 11:28 AM EDT12/23/2024 11:28 AM EDT Narrative Authorizing ProviderResult TypeResult Status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 APRN.CNPLABORATORY Final ResultPerforming OrganizationAddressCity/State/ZIP CodePhone Number [facility] [address] [address], * (ABNORMAL) IRON AND TIBC (12/23/2024 11:28 AM EDT)ComponentValueRef RangeTest MethodAnalysis TimePerformed AtPathologist JslbrvcflHvgp9836 - 186 ug/dL 12/23/2024 6:45 PM EDTCCHILLICOTHE [facility]OSPITAL QZMZPLA465(H)232 - 386 ug/dL12/23/2024 6:45 PM EDTCCHILLICOTHE HOSPITAL LABTransferrin Ksisqcxrkl13.315.0 - 57.0 %12/23/2024 6:45 PM EDTCCHILLICOTHE HOSPITAL LABSpecimen (Source)Anatomical Location / LateralityCollection Method / Volume Collection TimeReceived TimeBloodBLOOD SPECIMEN / UnknownVenipuncture / Ljgyrkn5512/23/2024 11:28 AM EDT12/23/2024 11:28 AM EDT Narrative Authorizing ProviderResult TypeResult Status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 APRN.CNPLABORATORY Final ResultPerforming OrganizationAddressCity/State/ZIP CodePhone Number [facility] [address] [place] [address], * FERRITIN (12/23/2024 11:28 AM EDT)ComponentValueRef RangeTest MethodAnalysis TimePerformed AtPathologist EejilujnyQslvhwly27.514.7 - 205.1 ng/mL12/23/2024 7:00 PM EDTCCHILLICOTHE HOSPITAL LABSpecimen (Source)Anatomical Location / LateralityCollection Method / VolumeCollection TimeReceived Time BloodBLOOD SPECIMEN / UnknownVenipuncture / Srvgtls9112/23/2024 11:28 AM EDT 12/23/2024 11:28 AM EDT Narrative Authorizing ProviderResult TypeResult Chester Caban APRN.CNPLABORATORY Final ResultPerforming OrganizationAddressCity/State/ZIP CodePhone Number [facility] [address] [place] [address], from Last 3 Months Insurance Care Teams Team MemberRelationshipSpecialtyStart DateEnd Date Evans Casas DO [address] [place] [address] PCP - GeneralFamily Rnspthdy19/3/22 Jonny Wilcox MD [address] [place] [address] Primary Staff PhysicianCardiology07/16/18 [place] [address] [place] [address] PhysicianHematology/Oncology09/14/21 Davida Restrepo, MARSHA [address] [place] [address] Specialty Care CoordinatorHematology/Oncology09/14/21
--- OUTSIDE RECORDS SUMMARY | 2025-03-12 19:10 | XMS_ITS | Encounter Summary ---
Author Organization [facility] Ezuza s tem Address [facility] [place] [address] Care Team Providers Care Children'S Book Author Name Role Phone Evans Casas DO Primary Care Provider [phone] Encounter Details DateTypeDepartmentCare Team (Latest Contact Info)Fquyrpqpcte54/07/2025Travel Social History Tobacco UseTypesPacks/DayYears UsedDateSmoking Tobacco: NeverSmokeless Tobacco: NeverAlcohol UseStandard Drinks/WeekCommentsNot Currently0 (1 standard drink = 0.6 oz pure alcohol)ChildcareAnswerDate IecddvtuTzlzqgdmnIrzdrod04/31/2019 EmploymentAnswerDate IosqcjflMjrdtaapjaRivrjza21/31/2019Hunger ScreeningAnswer Date RecordedWithin the past 12 months we worried whether our food would run out before we got money to buy more.Never True01/01/2025Within the past 12 months the food we bought just didn't last and we didn't have money to get more.Never True01/01/2025Purpose - LifeAnswerDate RecordedPurpose and direction in life Ukderxf36/11/2021Estimated Date of RlottvimNlagtluoLbk59/05/2026Based on last menstrual period of 07/28/2024Sex and Gender InformationValueDate Recorded Sex Assigned at BirthNot on fileLegal YonGhezbo52/31/2019 12:25 PM EDTGender IdentityNot on fileSexual OrientationNot on filedocumented as of this encounter Plan of Treatment DateTypeDepartmentCare Team (Latest Contact Info)Ieyzqhacxzk64/18/2025 8:30 AM ESTTelemedicine [facility], [facility] Department of [address] [phone] Sam Callahan MD MPH [address] [place] [phone] 04/07/2025 1:30 PM ESTTelemedicine Maternal- Medicine at [facility] [address] [place] [address] Davida Smith PA-C [address] [address] documented as of this encounter Visit Diagnoses Not on filedocumented in this encounter Care Teams Team MemberRelationshipSpecialtyStart DateEnd Date Evans Casas DO PCP - GeneralFamily Medicine07/07/19documented as of this encounter
--- OUTSIDE RECORDS SUMMARY | 2025-03-12 19:10 | XMS_ITS | Encounter Summary ---
Author Organization [facility] Address [address] [facility] [place] [address] Care Team Providers Care Caretaker Resort Name Role Phone Evans Casas MD Primary Care Provider [phone] Encounter Details DateTypeDepartmentCare Team (Latest Contact Info)Lgncqvjxfqy33/21/2025Clinisync Result Encounter [facility] External Department Unsolicited Wilton Herrmann, DO [address] [facility] [address] [place] [place], [place] [id number] Social History Tobacco UseTypesPacks/DayYears UsedDateSmoking Tobacco: NeverSmokeless Tobacco: NeverAlcohol UseStandard Drinks/WeekCommentsNever0 (1 standard drink = 0.6 oz pure alcohol)PHQ-2AnswerDate RecordedPatient Health Questionnaire-2 Score0 03/03/2025Estimated Date of OihbuivvSidonsbiUni64/05/2026Based on last menstrual period of 07/28/2024Sex and Gender InformationValueDate RecordedSex Assigned at BirthNot on fileLegal HtpYqdmoo88/15/2023 11:19 PM EDTGender IdentityNot on fileSexual OrientationNot on filedocumented as of this encounter Functional Status * Over the past 2 weeks, how often have you been bothered by any of the following problems?QuestionAnswerDate of AssessmentAuthorLittle interest or pleasure in doing thingsNot at all03/03/2025 1:52 PM Petra Tabares LPN Feeling down, depressed, or hopelessNot at all03/03/2025 1:52 PM Petra Tabares LPNPatient Health Questionnaire-2 Kzksl18805/03/2024 1:52 PM Petra Tabares LPN documented as of this encounter Plan of Treatment DateTypeDepartmentCare Team (Latest Contact Info)Kzounyzmqlj11/26/2025 11:10 AM ESTRoutine [facility] [address] [facility] [phone] Wilton Herrmann DO [address] [facility] [place] [address] documented as of this encounter Procedures Procedure NamePriorityDate/TimeAssociated DiagnosisCommentsALL THYROID STIM SZLGJBTDzstbmo89/21/2025 1:31 PM EDT ALL CBC WITH AUTO XXIYFelfrgt70/21/2025 1:31 PM EDT documented in this encounter Results * ALL THYROID STIM HORMONE (02/17/2025 1:31 PM EDT)ComponentValueRef RangeTest MethodAnalysis TimePerformed AtPathologist SignatureTHYROID STIMULATING HORMONE1.7450.358 - 3.740 uIU/mLTBHSpecimen (Source)Anatomical Location / LateralityCollection Method / VolumeCollection TimeReceived Time02/17/2025 1:31 PM EDT1 1:36 PM EDT Narrative [facility] - 02/17/2025 2:40 PM EDT Authorizing ProviderResult TypeResult StatusCorey Montez DOCLINISYNCFinal Result Performing OrganizationAddressCity/State/ZIP CodePhone Number [facility] * (ABNORMAL) ALL CBC WITH AUTO DIFF (02/17/2025 1:31 PM EDT)ComponentValueRef RangeTest MethodAnalysis TimePerformed AtPathologist SignatureTBH WBC9.64.0 - 11.0 10 3/uLTBHTBH RBC3.82(L)4.20 - 5.40 10 6/uLTBHTBH HGB12.112.0 - 16.0 g/dL TBHTBH HCT34.6(L)36.0 - 48.0 %TBHTBH MCV90.681.0 - 99.0 fLTBHTBH MCH31.726.7 - 34.0 pgTBHTBH MCHC35.029.9 - 35.2 g/dLTBHTBH RDW13.111.0 - 15.0 %TBHTBH XKN146 150 - 450 10 3/uLTBHTBH MPV9.79.5 - 13.5 fLTBHNEUTROPHILS PERCENT AUTO69.043.0 - 75.0 %TBHLYMPHOCYTES PERCENT AUTO24.320.5 - 60.0 %TBHMONOCYTES PERCENT AUTO 5.61.7 - 12.0 %TBHTBH EO %0.3(L)0.9 - 7.0 %TBHBASOPHILS PERCENT AUTO0.20.2 - 2.0 %TBHIMMATURE GRANULOCYTES PCT AUTO0.6(H)0.0 - 0.5 %TBHNEUTROPHILS ABSOLUTE AUTO6.6(H)1.4 - 6.5 10 3/uLTBHLYMPHOCYTES ABSOLUTE AUTO2.31.2 - 3.8 10 3/uLTBH MONOCYTES ABSOLUTE AUTO0.50.3 - 0.8 10 3/uLTBHTBH EO #0.00.0 - 0.7 10 3/uLTBH BASOPHILS ABSOLUTE AUTO0.00.0 - 0.1 10 3/uLTBHIMMATURE GRANULOCYTES ABS AUTO 0.06(H)0.00 - 0.03 10 3/uLTBHSpecimen (Source)Anatomical Location / Laterality Collection Method / VolumeCollection TimeReceived Time02/17/2025 1:31 PM EDT 02/17/2025 1:36 PM EDT Narrative [facility] - 02/17/2025 1:42 PM EDT Authorizing ProviderResult TypeResult StatusCorey Montez DOCLINISYNCFinal Result Performing OrganizationAddressCity/State/ZIP CodePhone Number [facility] TB documented in this encounter Visit Diagnoses Not on filedocumented in this encounter Care Teams Team MemberRelationshipSpecialtyStart DateEnd Date Evans Casas MD [address] [facility] [place] [address] PCP - GeneralFamily Medicine11/07/23documented as of this encounter
--- OUTSIDE RECORDS SUMMARY | 2025-03-12 19:10 | XMS_ITS | Encounter Summary ---
Author Organization [facility] Address [address] [facility] [place] [address] Care Team Providers Care Medical Advisor Name Role Phone Evans Casas MD Primary Care Provider [phone] Encounter Details DateTypeDepartmentCare Team (Latest Contact Info)Ghqhmjcpyoh13/11/2025amboo flowsheet [facility] [address] [employer] [place] [address] Wilton Herrmann DO [address] [place] [address] [place], [facility] Social History Tobacco UseTypesPacks/DayYears UsedDateSmoking Tobacco: NeverSmokeless Tobacco: NeverAlcohol UseStandard Drinks/WeekCommentsNever0 (1 standard drink = 0.6 oz pure alcohol)PHQ-2AnswerDate RecordedPatient Health Questionnaire-2 Score0 03/03/2025Estimated Date of LjdenktmFllchkpvVbr66/05/2026Based on last menstrual period of 07/28/2024Sex and Gender InformationValueDate RecordedSex Assigned at BirthNot on fileLegal RieVamwww64/15/2023 11:19 PM EDTGender IdentityNot on fileSexual OrientationNot on filedocumented as of this encounter Plan of Treatment DateTypeDepartmentCare Team (Latest Contact Info)Yrxzrzpqeic15/26/2025 11:10 AM ESTRoutine [facility] [address] [place] [address] Wilton Herrmann, [address] [place] [address] documented as of this encounter Visit Diagnoses Not on filedocumented in this encounter Care Teams Team MemberRelationshipSpecialtyStart DateEnd Date Evans Casas MD [address] [place] [address] PCP - GeneralFamily Medicine11/07/23documented as of this encounter
--- OUTSIDE RECORDS SUMMARY | 2025-03-12 19:12 | XMS_ITS | CCD ---
Author Organization [facility] Care Team Providers Care Vice President Client Services Name Role Phone CROW MONGE R Unavailable Unavailable BIBI CHRISTY Unavailable Unavailable ERIKA LONDON Attending Unavailab ERIKA Haddad Referring Unavailab Haseeb Chavez Attending Unavailable Crow Monge Referring Unavailable Humaira Gaviria MD Primary Care Provider [phone] Jonny Wilcox MD Unavailable Penelope CASAS Primary Care Physician Cheri Norwood Unavailable Unavailable Cosmo Elliott MD Unavailable [phone] Lauro LARSON, Davida Unavailable Penelope Casas Primary Care Provider PENELOPE CASAS Primary Care Unavailable TOD LOPEZ Referring Unavailable Humaira Gaviria MD Primary Care Provider Jonny Wilcox MD P Unavailable Cosmo Elliott MD R Unavailable Lauro RN, Davida Unavailable [phone] Penelope Casas DO Primary Care Provider [...] Unavailable MONTEZ, DR ROQUE Primary Care Unavailable TIPTON, DR ANGIE Luna Consulting Unavailable MONTEZ, DR [...] Care Unavailable MONTEZ, DR ROQUE Attending Unavailable MONETZ, DR ROQUE Admitting Unavailable MONTEZ, DR ROQUE Consulting Unavailable MONTEZ, DR ROQUE Primary Care Unavailable MONTEZ, DR ROQUE Attending Unavailable MONTEZ, DR ROQUE Admitting Unavailable MONTEZ, DR ROQUE Consulting Unavailable MONTEZ, DR ROQUE Primary Care Unavailable MONTEZ, DR ROQUE Attending Unavailable Brenden ROSARIO, Jonny Tsai Unavailable [phone] Lauro LARSON, Davida Unavailable [phone] Penelope Casas DO Primary Care Provider [...] Penelope Casas MD Primary Care Provider Montez RESENDEZ, Wilton Attending Provider [phone] Montez, Wilton Attending Unavailable Montez, Wilton [...] Unavailable Penelope Casas MD Primary Care Provider MONTEZ, Wilton R Admitting Unavailable MONTEZ, Wilton R Attending Unavailable MONTEZ, Wilton R Referring Unavailable CINDY MILLER Attending Unavailable MONTEZ, WILTON R Referring Unavailable KAPLE, PENELOPE A Primary Care Unavailable TORI, ALISA Attending Unavailable KAPLE, PENELOPE A Referring Unavailable KAPLE, PENELOPE A Primary Care Unavailable TORI, ALISA Attending Unavailable KAPLE, PENELOPE A Referring Unavailable KAPLE, PNEELOPE A Primary Care Unavailable TORI, ALISA Attending [...] Primary Care Unavailable PENELOPE, KATHERINE Attending Unavailable KAPLE, PENELOPE [...] of OnsetReaction(s) Facility (20 sources)Ciprofloxacin; Translations: [ciprofloxacin]Drug Mbnqutw42-05-3382 Other: See Comments, Unknown, Numbness and tingling sensation of skin (finding), Nausea (finding), Other (See Comments), [facility], [facility]: (20 sources)Ciprofloxacin / fluocinolone; Translations: [CIPROFLOXACIN-FLUOCINOLONE]Drug Qblleji16-03-9093Udzif: See CommentsRiverside Methodist Hospital (20 sources)cow milk allergenic extract; Translations: [MILK]Drug Allergy 00-44-5095Cqdkp: See [facility] Work Phone: (20 sources)Lactalbumin; Translations: [LACTALBUMIN]Drug Xsragsa03-84-3522 Unknown, GI Upset, Other (See Comments)[facility] (20 sources)Lactose; Translations: [LACTOSE]Drug Uxwtzcn96-71-2487RH Upset, GI DisturbanceR[facility]ide [facility] Hospital (20 sources)MilkDrug Pyagqdr68-73-4231Siyxz: See Comments, Other (See Comments) [facility] (6 sources)PenicillinsDrug Izirfzl16-26-7331NnvxmwsTqxtvalhy Clinic (20 sources)Seasonal allergy; Translations: [SEASONAL ALLERGIES]Allergy to llhypywja71-41-0105OP Upset, Other: See [facility] Work Phone: (20 sources)Milk Products; Translations: [Milk Products]Drug allergyIllness (finding)[facility] (20 sources)Ciprofloxacin / fluocinoloneDrug Pydpokb44-10-9872Xybby (See Comments)[employer] Work Phone: (1 source)Seasonal allergyPropensity to adverse reactions to ejicjkela71-62-1002 Other (See Comments)[employer] Work Phone: (1 source)Milk-Related CompoundsPropensity to adverse reactions to drug 68-98-3604Oxmrs (See Comments)[employer] Work Phone: (2 sources)PenicillinsDrug Kxdahsg13-43-5972OmwuhzfFdpdfsslv Clinic (1 source)CiprofloxacinDrug Obliztl95-09-5481RwmOhio[facility] (20 sources)Lactose (non-medical use)Propensity to adverse akkukbgem86-99-7839 [facility] (20 sources)Lactose (non-medical use)Drug Rdmtwrv70-96-1518[facility] (20 sources)OctacosanolDrug Jfryxnozefb20-98-4879[facility] (20 sources)OtherAllergy to onwweuafq92-04-8555MxnmvBQXZ Healthcare Work Phone: (3 sources)MILK CONTAINING PRODUCTS (DAIRY); Translations: [MILK CONTAINING PRODUCTS (DAIRY)]Propensity to adverse reactions to drug (disorder)05-25-2017 [facility] Rep[facility] Medications Current Medications MedicationDrug Class(es)DatesSig (Normalized)Sig (Original)acetaminophen 300 mg / codeine phosphate 30 mg oral tablet (1 source)Opioid AgonistStart: 59-55-9658iaexjafrbaqun-codeine (TYLENOL #3) 300- 30 MG per tabletAlbuterol (Eqv-ProAir HFA) 90 mcg/inh inhalation aerosol (6 sources)Start: 25-50-4424npcr 2 puff(s) by inhalation every six hours Albuterol (Eqv-ProAir HFA) 90 mcg/inh inhalation aerosol 2 puff(s), Inhalation, q6hr, 1 EA, Refill(s) 5, [facility], 168, cm, 02/02/24 14:43:00 EDT, Height/Length Dosing, 101.1, kg, 02/02/24 14:43:00 EDT, Weight Dosing Start Date: 02/02/24 Status: Orderedazithromycin 250 mg oral tablet (20 sources)Macrolide AntimicrobialStart: 09-08-2024 End: 13-34-5092fgxsdhevlzsa (Zithromax Z-Jonny) 250 MG tablet Indications: 5 weeks gestation of ([facility]) As directed 6 tablet 09/08/2024 10/30/2024 Discontinued (Therapy completed)Start: 06-19-2024 End: 58-14-2683Uqkogwafg 250 mg Tab = 1 packet(s), Oral, As Directed, as directed on package labeling, X 5 day(s),# 6 tab(s), Refills(s) 1, Pharmacy: [facility], 168, cm, 06/09/24 14:03:00 EST, Height/Length Dosing, 98.4, kg, 06/19/24 16:19:00 EST, Weight Dosing Start Date: 06/19/24 Stop Date: 06/29/24 Status: OrderedStart: 04-21-2024 End: 99-04-2722uhkydcypuiel (Zithromax Z-Jonny) 250 MG tablet Indications: Upper respiratory tract infection, unspecified type As directed 6 tablet 04/21/2024 05/06/2024 Discontinuedazithromycin 250 mg Tab 5-day Dose Pack (Z-Jonny) (2 sources)Start: 02-02-2024 End: 64-02-1945dfwxpoidahpz 250 mg Tab 5-day Dose Pack (Z-Ojnny) = 1 packet(s), Oral, As Directed, as directed on package labeling, X 5 day(s), # 6 tab(s), Refills(s) 0, Pharmacy: [facility], 168, cm, 02/02/24 14:43:00 EDT, Height/Length Dosing, 101.1, kg, 02/02/24 14:43:00 EDT, Weight Dosing Start Date:02/02/24 Stop Date: 02/07/24 Status: OrderedBlood Glucose Monitoring Suppl (D-Care Glucometer) w/Device kit (20 sources)Start: 10-30-2024 End: 61-34-0707Nmmcu Glucose Monitoring Suppl (D-Care Glucometer) w/Device kit Indications: Second trimester ([facility]) , 13 weeks gestation of ([facility]) , Multigravida of advanced maternal age in second trimester ([facility]) , Gestational diabetes mellitus (GDM), antepartum, gestational diabetesmethod of control unspecified ([facility]) , Elevated glucose tolerance test 1 kit Daily Use four times daily to check FSBS. In the morning prior to breakfast & 1 hour after each meal for a total vg0exdjc daily. 1 kit 10/30/2024 10/30/2025 Activeblood-glucose meter (BLOOD GLUCOSE MONITORING) kit (20 sources)blood-glucose meter (BLOOD GLUCOSE MONITORING) kit 1 each by other route in the morning. Use to check blood sugar 4 times daily . Activeblood- glucose sensor (FREESTYLE JENIFER 3 PLUS SENSOR) device (12 sources)Start: 74-86-2737tdyw 2 doses by mouth onceblood-glucose sensor (FREESTYLE JENIFER 3 PLUS SENSOR) device Indications: Gestational diabetes mellit us (GDM) in second trimester controlled on oral hypoglycemic drug Wear for 15 days and change 2 each 6 12/26/2024 Activecephalexin 500 mg oral tablet (20 sources)Cephalosporin AntibacterialStart: 08-19-2021 End: 98-91-8170nqzk 1 tablet by mouth twice dailycephalexin 500 mg oral tablet 500 mg = 1 tab(s), Oral, BID, X 10 day(s), # 20 tab(s), Refills(s) 0,Pharmacy: [facility], 168, cm, 08/19/21 [...] suspension (2 sources)Corticosteroid, Quinolone AntimicrobialStart: 10-23-2023 End: 03-22-1853Piyaooxi 0.3%-0.1% Susp-Otic 4 drop(s), Otic, BID for 7 day(s), 7.5 mL, Refill(s) 0, [facility]/pharmacy #[id number], 168, cm, 10/23/23 16:55:00 EDT, Height/Length Dosing, 106.2, kg, 10/23/23 16:55:00 EDT, WeightDosing Start Date: 10/23/23 Stop Date: 10/30/23 Status: OrderedStart: 02-15-2023 End: 73-66-4089Hlmgfiue 0.3%-0.1% Susp-Otic 4 drop(s), Otic, BID for 7 day(s), 7.5 mL, Refill(s) 0, Only use if drainage or pain of ear shake well before using, [facility], 168, cm, 02/15/23 [...] (20 sources)Low Molecular Weight HeparinStart: 01-19-2025 End: 11-33-3229Tylbdtnyqz Sodium (Lovenox) 40 MG/0.4ML solution prefilled syringe Indications: Anticoagulant long-term use , Antiphospholipid antibody positive , Antiphospholipid antibody syndrome ([facility]) Inject 40 mg as directed Daily for 30 doses 12 mL 3 01/19/2025 02/18/2025 ActiveStart: 01-09-2025 End: 67-00-7420tcibpl 0.4 mL by subcutaneous injection onceenoxaparin (LOVENOX) 40 mg/0.4 mL syringe Indications: Antiphospholipid syndrome Inject 0.4 mL (40 mg total) under the skin Every 12 (twelve) hours. 24 mL 6 01/13/2025 ActiveStart: 05-03-2023 End: 08-40-2173azqtvyafwi (LOVENOX) 40 mg/0.4 mL Indications: Primary hypercoagulable state (HCC) , CVA, old, speech/language deficit , Cerebral hyponatremia INJECT 1 SYRINGE SUBCUTANEOUSLY EVERY 24 HOURS 90 mL 10/29/2024 ActiveStart: 04-06-2022 End: 42-64-7225vjhsdyxjun (LOVENOX) 40 mg/0.4 mL Indications: Primary hypercoagulable state (HCC) , CVA, old, speech/language deficit , Cerebral hyponatremia INJECT THE CONTENTS OF ONE SYRINGE (0.4 ML) SUBCUTANEOUSLY EVERY 24 HOURS 90 mL 2 09/28/2022 ActiveStart: 09-06-2021 End: 54-74-3306quqwqo 0.8 mL by subcutaneous injection twice dailyenoxaparin (LOVENOX) 80 mg/0.8 mL Indications: Primary hypercoagulable state (HCC) Inject 0.8 mL subcutaneously twice daily. 48 mL 5 09/06/2021 10/06/2021 ActiveStart: 04-07-2020 End: 00-46-0574gevfss 0.4 mL by subcutaneous injection every twenty-four hours enoxaparin (LOVENOX) 40 mg/0.4 mL Indications: Primary hypercoagulable state (HCC) , CVA, old, speech/language deficit , Cerebral hyponatremia Inject 0.4 mL subcutaneously every 24 hours. 36 mL 0 12/30/2021 03/30/2022 Active End: 27-46-0426dqqlzi 40 mg by subcutaneous injection in the [...] enoxaparin (LOVENOX) 40 MG/0.4ML injection (1 source)Start: 46-65-8569tvwiclmrig (LOVENOX) 40 MG/0.4ML injection Inject 0.4 mLs into the skin daily 16 mL 1 02/20/2020 Activeenoxaparin (Lovenox) 40 MG/0.4ML injection (20 sources)enoxaparin (Lovenox) 40 MG/0.4ML injection 1 (one) time each day at the same time Activefamotidine 40 mg oral tablet (20 sources)Histamine-2 Receptor AntagonistStart: 75-68-4133tyjx 1 tablet by mouth once daily at bedtimePepcid 40 mg Tab 40 mg = 1 tab(s), Oral, Once a day (at bedtime), # 90 tab(s), Refills(s) 4, Pharmacy: [facility], 168, cm, 06/30/24 8:36:00 EST, Height/Length Dosing, 97.2, kg, 06/30/24 8:36:00 EST, Weight Dosing Start Date: 06/30/24 Status: Ordered Quantity: 90.0 Unit: tab(s) Repeat number: 5Start: 11-29-2023 End: 59-55-7539kdnx 1 tablet by mouth once dailyfamotidine (PEPCID) 20 mg tablet Take 1 tablet by mouth once daily. To take prior to infusion 1 tablet 11/29/2023 10/28/2024 Discontinued (Discontinued by Patient)Start: 11-29-2023 End: 76-71-6927mtelxltwjd 20 mg injection (PEPCID)fluconazole 150 mg oral tablet (6 sources)Azole AntifungalStart: 28-11-2172Bddufipq 150 mg Tab 150 mg = 1 tab(s), Oral, q7day, # 4 tab(s), Refills(s) 1, Pharmacy: [facility], 168, cm, 06/09/24 14:03:00 EST, Height/Length Dosing, 98.4, kg, 06/19/24 16:19:00 EST, Weight Dosing Start Date: 06/19/24 Status: Ordered Quantity: 4.0 Unit: tab(s) Repeat number: 2 Indication: Candidiasis, unspecifiedfluticasone propionate 0.05 mg/actuat metered dose nasal spray (20 sources)CorticosteroidStart: 11-20-2024 End: 32-62-4643uhga 1 spray(s) nasal route once dailyfluticasone (Flonase) 50 MCG/ACT nasal spray Indications: Sinus headache Administer 1 spray into each nostril Daily Shake gently. Before first use, prime pump. After use, clean tip and replace cap. 16 g 3 11/20/2024 11/20/2025 ActiveStart: 34-22-8330Nqqntct 0.05 mg/inh Lomax 2 spray(s), Nasal, Daily, 16 gram, Refill(s) 11, each nostril, [facility]/pharmacy #[id number], 168, cm, 06/09/24 14:03:00 EST, Height/Length Dosing, 99.1, kg, 06/09/24 14:03:00 EST, Weight Dosing Start Date: 06/09/24 Status: Ordered Quantity: 16.0 Unit: g Repeat number: 12Start: 45-47-2485Ksvposu 0.05 mg/inh Lomax 2 spray(s), Nasal, Daily, 16 gram, Refill(s) 11, each nostril, [facility]/pharmac y #[id number], 168, cm, 06/09/24 14:03:00 EST, Height/Length Dosing, 99.1, kg, 06/09/24 14:03:00 EST, Weight Dosing Start Date: 06/09/24 Status: OrderedStart: 18-71-8148Ejmgvpm 0.05 mg/inh Lomax 2 spray(s), Nasal, Daily, 16 gram, Refill(s) 0, each nostril Start Date: 08/03/23 Status: Orderedisopropyl alcohol 0.7 ml/ml medicated pad (20 sources)Start: 15-12-1284Yweynwi Swabs (Alcohol Prep Pad) 70 % pads Indications: Second trimester ([facility]) , 13 weeks gestation of ([facility]) , Multigravida of advanced maternal age in second trimester ([facility]) , Gestational diabetes mellitus (GDM), antepartum, gestational diabetes method of control unspecified ([facility]) , Elevated glucose tolerance test Apply 1 Pad topically Daily Use four times daily to check FSBS. 150 each 3 10/30/2024 Activelevothyroxine sodium 0.025 mg oral tablet (20 sources)l-ThyroxineStart: 86-96-6117zlfqqctzeymco 25 mcg (0.025 mg) Tab 25 mcg = 1 tab(s), Oral, Daily, Dr. Celaya, # 30 tab(s), Refills(s) 0 Start Date: 06/09/24 Status: Ordered Quantity: 30.0 Unit: tab(s) Repeat number: 1Start: 06-02-2024 End: 46-86-2206wyxz 1 tablet by mouth before mealtimelevothyroxine (Synthroid) 50 MCG tablet Indications: History of thyroid disease Take 1 tablet (50 mcg) by mouth in the morning. Take before meals. 30 tablet 11 06/02/2024 06/23/2024 DiscontinuedStart: 02-25-2024 End: 97-56-4609otub 1 tablet by mouth before mealtimelevothyroxine (Synthroid) 25 MCG tablet Indications: Abnormal TSH Take 1 tablet (25 mcg) by mouth in the morning. Take before meals. 30 tablet 11 06/23/2024 06/23/2025 ActiveStart: 08-24-2021 End: 89-30-5170xznjunmsxzikn (SYNTHROID) 25 mcg tablet Take 25 mcg by mouth. 0 08/24/2021 09/26/2023 Discontinued End: 79-68-4558ngeu 3 tablets by mouth once dailylevothyroxine (Synthroid) 25 MCG tablet Take 75 mcg by mouth 1 (one) time each day at the same time05/06/2024 DiscontinuedComment on above:Take 25 mcg by mouth.Lovenox 40 mg/0.4 mL Injection (20 sources)Start: 16-33-7905gxmnun 40 mg by subcutaneous injection every twenty-four hoursLovenox 40 mg/0.4 mL Injection 40 mg, SubCutaneous, q24hr, # 7 EA, Refills(s) 0, Blood Thinner Start Date: 04/07/20 Status: Ordered Quantity: 7.0 Unit: EA Repeat number: 1Start: 41-02-9631gjxqgq 40 mg by subcutaneous injection every twenty-four hoursLovenox 40 mg/0.4 mL Injection 40 mg, SubCutaneous, q24hr, # 7 EA, Refills(s) 0, Blood Thinner Start Date: 04/07/20 Status: Dwhuyqj75 hr metFORMIN hydrochloride 500 mg extended release oral tablet (20 sources)BiguanideStart: 01-19-2025 End: 19-35-4085yyvt 3 tablets by mouth every twenty-four hours at mealtime metFORMIN XR (Glucophage-XR) 500 MG 24 hr tablet Indications: Gestational diabetes mellitus (GDM), antepartum, gestational diabetes method of control unspecified ([facility]) Take 3 tablets (1,500 mg) by mouth in the evening. Take with meals Do not crush, chew, or split. 90 tablet 3 01/19/2025 ActiveStart: 55-28-7548iaoCOKCKV XR (GLUCOPHAGE XR) 500 mg 24 hr tablet Take 1500 mg at night. 90 tablet 4 01/01/2025 ActiveStart: 12-17-2024 End: 83-58-5092wooONBZNZ XR (GLUCOPHAGE XR) 500 mg 24 hr tablet Take 1000 mg at night. 90 tablet 4 12/17/2024 01/01/2025 DiscontinuedStart: 05-13-2024 End: 38-20-5996rqvp 2 tablets by mouth every twenty-four hours at mealtime metFORMIN XR (Glucophage-XR) 500 MG 24 hr tablet Indications: Insulin resistance Take 2 tablets (1,000 mg) by mouth in the evening. Take with meals Do not crush, chew, or split. 60 tablet 11 05/13/2024 06/02/2024 DiscontinuedStart: 11-27-2023 End: 30-21-4425rrpp 1 tablet by mouth once dailymetFORMIN XR (Glucophage-XR) 500 MG 24 hr tablet Indications: Insulin resistance Take 1 tablet (500mg) by mouth 1 (one) time each day at the same time 30 tablet 11 09/18/2024 01/19/2025 DiscontinuedStart: 59-91-7215OydMFGSMR (Eqv-Glucophage XR) 500 mg oral tablet, extended release 1,000 mg = 2 tab(s), Oral, Daily, Refills(s) 0 Start Date: 10/20/22 Status: Ordered Repeat number: 1Start: 03-26-2022 End: 46-24-6268mxfIEXBQW XR (GLUCOPHAGE XR) 500 mg 24 hr [...] tablet by mouth once daily.polyethylene glycol 3350 35521 mg powder for oral solution (20 sources)Osmotic Laxativepolyethylene glycol, PEG, 3350 (Glycolax) 17 GM/SCOOP powder Take 17 g by mouth Daily ActivePolyethylene Glycols (4 sources)polyethylene glycol 3350 (MIRALAX PO) Take by mouth. ActivePRENATAL 19 29 mg iron- 1 mg tablet,chewable (20 sources)Start: 12-55-7926VFSVWLMY 19 29 mg iron- 1 mg tablet,chewable Chew 1 tablet and swallow in the morning. 6 10/31/2018ActiveStart: 46-46-3653TYNOTNNC 19 29 mg iron- 1 mg tablet,chewable Chew 1 tablet and swallow daily. 6 10/31/2018 ActivePrenatal Vit-Fe Fumarate-FA ( PO) (1 source)Start: 65-71-5842Rdypxcle Vit-Fe Fumarate-FA ( PO) Take 1 tablet by mouth 0 10/31/2018 Activeprogesterone 200 mg oral capsule (20 sources)Progesteronetake 1 capsule by mouth in the morningprogesterone (PROMETRIUM) 200 mg capsule Take 1 capsule (200 mg total) by mouth in the morning. ActiveProgesterone 200 MG suppository (6 sources)Start: 09-18-2024 End: 12-35-0770Cdyfqxrgndov 200 MG suppository Indications: History of miscarriage Insert 200 mg into the vagina at bedtime Insert suppository vaginally every night at bedtime until 12 weeks gestation 30 suppository 3 09/18/2024 10/30/2024 Discontinued (Therapy completed)Start: 09-18-2024 End: 91-53-6662Nvtorgkkczfu 200 MG suppository Indications: History of miscarriage Insert 200 mg into the vagina at bedtime Insert suppository vaginally every night at bedtime until 12 weeks gestation 30 suppository 3 09/18/2024 12/17/2024 ActiveStart: 09-01-2024 End: 14-47-2730Doeerefsdzwk 200 MG suppository Indications: History of miscarriage Insert 200 mg into the vagina at bedtime Insert suppository vaginally every night at bedtime until 12 weeks gestation 30 suppository 2 09/01/2024 11/30/2024 Activeprogesterone vaginal suppository 200 mg (CPD) (4 sources)progesterone vaginal suppository 200 mg (CPD) Use 200 mg vaginally. Unwrap and insert as directed. Activeterconazole 4 mg/ml vaginal cream (3 sources)Azole AntifungalStart: 06-23-2024 End: 38-93-6351uvoifxzgtfb (Terazol 7) 0.4 % vaginal cream Indications: Vaginal discharge Insert 1 applicator intothe vagina at bedtime for 7 days 45 g 06/23/2024 06/30/2024 ActiveVentolin HFA 90 mcg/inh Aerosol-Adpt (1 source)Start: 09-07-2024 End: 03-79-2590fcqc 2 puff(s) by inhalation every six hours for wheezingVentolin HFA 90 mcg/inh Aerosol-Adpt 2 puff(s), Inhalation, q6hr for wheezing for 7 day(s), 8 gm, Refill(s) 0, [facility], 167, cm, 09/07/24 10:01:00 EDT, Height/Length Dosing, 96.4, kg, 09/07/24 10:01:00 EDT, Weight Dosing Start Date: 09/07/24 Stop Date: 09/14/24 Status: Ordered Quantity:8.0 Unit: g Repeat number: 1 Indication: Acute upper respiratory infection, unspecifiedVitamin D (20 sources)Start: 15-18-9037Vunrnzi D 2,000 International_Unit, Oral, qWeek, Refills(s) 0 Start Date: 08/03/23 Status: Ordered Repeat number: 1Start: 09-71-2996Dzrbolv D 2,000 International_Unit, Oral, qWeek, Refills(s) 0 Start Date: 08/03/23 Status: Ordered Completed/Discontinued Medications MedicationDrug Class(es)DatesSig (Normalized)Sig (Original)aspirin 81 mg chewable tablet (5 sources)Platelet Aggregation Inhibitor, Nonsteroidal Anti-inflammatory Drug End: 47-55-2757tbbgwpz 81 MG chewable tablet Chew 81 mg in the morning. 05/06/2024 Discontinued1 ml dexamethasone phosphate 4 mg/ml injection (1 source)CorticosteroidStart: 11-29-2023 End: 61-92-0173soeLKSNKlmnww sodium phosphate 8 mg injection (DECADRON)3 ml insulin glargine 100 unt/ml pen injector (6 sources)Insulin AnalogStart: 12-03-2024 End: 98-01-2443dvserbx glargine (LANTUS SOLOSTAR U-100 INSULIN) 100 unit/mL (3 mL) insulin pen Prime with 2 units then inject 4 units SQ into abd 15 mL 3 12/03/2024 12/17/2024 Discontinued (Allergic response)insulin isophane, human 100 unt/ml injectable suspension (10 sources)Start: 12-26-2024 End: 37-97-3500dxyp 8 [IU] by mouth once dailyinsulin NPH (HumuLIN N,NovoLIN N) 100 unit/mL injection Indications: Gestational diabetes mellitus (GDM) in second trimester controlled on oral hypoglycemic drug Inj sbq in abd 8 units nightly 10 mL 6 12/26/2024 02/06/2025 Discontinued (Patient Never Started This Medication)iron sucrose 300 mg in NaCl 0.9% 250 mL (VENOFER) (3 sources)Start: 11-29-2023 End: 23-43-9863btlg sucrose 300 mg in NaCl 0.9% 250 mL (VENOFER)Start: 11-22-2023 End: 31-28-3013ulby sucrose 300 mg in NaCl 0.9% 250 mL (VENOFER)Start: 11-15-2023 End: 80-13-3590ykkv sucrose 300 mg in NaCl 0.9% 250 mL (VENOFER)multivitamin (MULTIPLE VITAMINS) tablet (7 sources)take 1 tablet by mouth once dailymultivitamin (MULTIPLE VITAMINS) tablet Take 1 tablet by mouth once daily. 0 ActiveComment on above:Take 1 tablet by mouth once daily.ondansetron 4 mg disintegrating oral tablet (4 sources)Serotonin-3 Receptor AntagonistStart: 04-14-2024 End: 97-40-3121fntg 1 tablet by mouth every six hours for nauseaondansetron ODT (Zofran-ODT) 4 MG disintegrating tablet Indications: Nausea and vomiting in Take 1 tablet (4 mg) by mouth every 6 (six) hours if needed for nausea or vomiting 30 tablet 2 04/14/2024 05/06/2024 DiscontinuedStart: 03-07-2024 End: 85-74-1104zjzd 1 tablet by mouth every six hours as needed for nausea and vomiting and nausea and nauseaondansetron ODT (Zofran-ODT) 4 MG disintegrating tablet Indications: Nausea Take 1 tablet (4 mg) bymouth every 6 (six) hours if needed for nausea or vomiting 30 tablet 2 03/07/2024 04/06/2024 Active polysaccharide iron complex 391 mg oral capsule (20 sources)Start: 03-06-2022 End: 85-15-9161QAH FE 180 mg iron cap Problems Active Problems Problem ClassificationProblemDateDocumented DateEpisodic/ChronicAcute cerebrovascular disease (20 sources)Cerebral infarction; Translations: [Cerebral infarction, unspecified]Onset: 05-16-2019 Resolved: [id number] disorders (20 sources)Anxiety; Translations: [Anxiety disorder, unspecified]Onset: [id number] dysrhythmias (20 sources)Supraventricular tachycardia; Translations: [Supraventricular tachycardia]Onset: [id number] and hemorrhagic disorders (20 sources)Antiphospholipid syndrome; Translations: [Hypercoagulability state] Onset: [id number]m and other anemia (20 sources)Iron 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; Translations: [Iron deficiency anemia secondary to blood loss (chronic)]Onset: 53-09-2657Vyamghd Deficiency and other anemia (1 source)Iron deficiency anemia secondary to blood loss (chronic); Translations: [Iron deficiency anemia secondary to blood loss (chronic)]Onset: 68-06-2713RsmuuytYpaomucda of teeth and jaw (11 sources)Temporomandibular jayst-lyvb-drawdbtshna syndrome; Translations: [Arthralgia of temporomandibular joint]Onset: 518974-29-7252Gzggxymz Esophageal disorders (20 sources)Laryngopharyngeal reflux; Translations: [Gastro-esophageal reflux disease without esophagitis]Onset: 973812-15-8514MeihiggCtcwzljo; including migraine (20 sources)Migraine without aura, not refractory ; Translations: [Migraine without aura, not intractable, without status migrainosus]Onset: 09-12-2017 Resolved: 226624-73-9984MrbpmafCbgcnrsj; including migraine (2 sources)Sinus headache; Translations: [Sinus headache]26-74-2220DjqddzbxXlye effects of cerebrovascular disease (20 sources)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; Translations: [Other speechand language deficits following cerebral infarction]Onset: 28-71-0304ObymxawFfmjvmljeh disorders (1 source)Hormone replacement therapy; Translations: [HORMONE REPLACEMENT THERAPY]Onset: 53-80-0648HvwlnnnnKwydhoolx disorders (20 sources)Irregular menstruation, unspecified; Translations: [Missed period] Onset: 27-62-6595MosidjcWruyhohdpitsc mental health disorders (20 sources)Psychogenic hyperventilation; Translations: [Other somatoform disorders]Onset: 470537-65-0049BhfylofAxakiglm sclerosis (1 source)Multiple sclerosis; Translations: [Multiple sclerosis]Onset: 64-77-6376ZmyaxloIgitsfbcjle deficiencies (20 sources)Vitamin D deficiency; Translations: [Vitamin D deficiency, unspecified]Onset: 467560-18-7613KomgjflWukqo aftercare (1 source)Other correction (current) drug therapy; Translations: [OTH CUSTODIAL CURRENT DRUG THERAPY]Onset: 29-36-3640GqerqtniCzrct aftercare (1 source)custodial (current) use of oral hypoglycemic drugs; Translations: [CUSTODIAL USE ORAL HYPOGLYCEMIC DX]Onset: 46-73-3188EotuzswgXaujh aftercare (2 sources)H/O: miscarriage; Translations: [Encounter for other specified aftercare]19-13-6018MxowunkjAinhd circulatory disease (4 sources)History of cerebrovascular disease; Translations: [Personal history of transient ischemic attack (TIA), and cerebral infarction without residual deficits]Onset: 707710-98-3446IpwpmcnpOaspi circulatory disease (3 sources)Personal history of transient ischemic attack (TIA), and cerebral infarction without residual deficits; Translations: [PERS HX TIA AND CI NO RESID DEFICIT]Onset: 51-74-9253SozzxeqePyvly circulatory disease (1 source)History of transient ischemic attack; Translations: [Personal history of transient ischemic attack (TIA), and cerebral infarction without residual deficits]39-69-3714ZphksrurSyxof complications of ; puerperium affecting management of mother (20 sources)Anemia in mother complicating childbirth; Translations: [Anemia complicating childbirth]Onset: 423884-20-0772KxphhzsDnvsn complications of ; puerperium affecting management of mother (1 source)Other diseases of the blood and blood-forming organs and certain disorders involving the immune mechanism complicating childbirth; Translations: [OTH DZ BLD BFO IMMUN COMP CHILDBRTH]Onset: 99-39-4266XidlfkneCyrsn complications of ; puerperium affecting management of mother (1 source)Endocrine, nutritional and metabolic diseases complicating childbirth; Translations: [ENDOCRN NUTR MET DZ COMP CHILDBIRTH]Onset: 68-54-8679Zutrnpcm Other complications of ; puerperium affecting management of mother (1 source)Streptococcus B carrier state complicating childbirth; Translations: [STREP B QUIROZ STATE COMP CHILDBIRTH]Onset: 75-52-7666XwpoukceDhtzl complications of (20 sources)Iron deficiency anemia of ; Translations: [Anemia complicating , unspecified trimester]Onset: 90-18-0316EahrorwHixbo complications of (1 source)Endocrine, nutritional and metabolic diseases complicating , third trimester; Translations: [ENDOCRN NUTR MET DZ COMP PG 3RD TRI]Onset: 27-16-3480RzoqwqpdQjtuk complications of (5 sources)Supervision of elderly multigravida, third trimester; Translations: [SUP ELDER MULTIGRAVIDA THIRD TRI]Onset: 06-67-9162YzeryhcxAjahz complications of (1 source)Other diseases of the blood and blood-forming organs and certain disorders involving the immune mechanism complicating , third trimester; Translations: [OTH DZ BLD BFO IMMN COMP PG 3RD TRI]Onset: 05-04-2022 EpisodicOther complications of (1 source)Maternal care for excessive growth, third trimester, not applicable or unspecified; Translations: [MAT CARE EXCSS FTL GRTH 3RD TRI UNS] Onset: 16-47-7099XmrkhiqjHdsxg complications of (20 sources)Antiphospholipid syndrome; Translations: [Other diseases of the blood and blood-forming organs and certain disorders involving the immune mechanism complicating , unspecified trimester]Onset: 07-07-2019 45-46-1899XakveerkLpdlg complications of (20 sources)Multigravida of advanced maternal age; Translations: [Supervision of elderly multigravida, second trimester]Onset: 212464-56-3307LmarbaugTbzso complications of (20 sources)History of with abortive outcome; Translations: [Supervision of with other poorreproductive or obstetric history, second trimester]Onset: 907077-29-4440ZskancchEaoso complications of (3 sources)Hypothyroidism in ; Translations: [Endocrine, nutritional and metabolic diseases complicating , second trimester]01-02-2025 EpisodicOther ear and sense organ disorders (20 sources)Otitis externa of right ear; Translations: [Unspecified otitis externa, right ear]Onset: 66-19-9344CaygnbwHrwby ear and sense organ disorders (7 sources)Otitis -99-0633EqxbewjHhluc endocrine disorders (20 sources)Hypoglycemia; Translations: [Hypoglycemia, unspecified]Onset: 988856-55-4134SjmxopkEgrbw female genital disorders (2 sources)Vaginal bleeding; Translations: [Abnormal uterine and vaginal bleeding, unspecified]98-90-7000AcwvsfjRleus female genital disorders (4 sources)Vaginal discharge; Translations: [Other specified noninflammatory disorders of vagina]34-21-3407XwnkzcfbUsyjz hematologic conditions (1 source)H/O: blood disorder; Translations: [Personal history of diseases of the blood and blood-forming organs and certain disorders involving the immune mechanism]Onset: 15-56-0396EgyjynlhFudep lower respiratory disease (9 sources)Wuoxa68-46-6988PywibuukUrnmj nervous system disorders (1 source)Idiopathic progressive neuropathy; Translations: [Idiopathic progressive neuropathy]Onset: 91-87-2460LihyiztEkemy nervous system disorders (20 sources)Neuropathy; Translations: [Idiopathic progressive neuropathy]Onset: 087222-04-2066HvsdechGmtdk nervous system disorders (3 sources)Paresthesia; Translations: [Paresthesia of skin]Onset: 05-16-2019 EpisodicOther nervous system disorders (9 sources)Muscle ijboap84-22-3392ExkweohrTihvw nervous system disorders (6 sources)Facial -44-5145UwpnrykiUxgmu nutritional; endocrine; and metabolic disorders (10 sources)Obese class II; Translations: [Body mass index (BMI) 36.0-36.9, adult]Onset: 31-98-3101KjardiiQkepv nutritional; endocrine; and metabolic disorders (20 sources)Obesity; Translations: [Other obesity]Onset: 690195-40-3907 ChronicOther nutritional; endocrine; and metabolic disorders (20 sources)Morbid obesity; Translations: [Morbid (severe) obesity due to excess calories]Onset: 30-44-8717OtzeswiTuyry nutritional; endocrine; and metabolic disorders (3 sources)Hypercalcemia; Translations: [Hypercalcemia]33-03-2728EqkexxlWqxtn nutritional; endocrine; and metabolic disorders (20 sources)Body mass index 30+ - obesity; Translations: [Body mass index (BMI) 37.0-37.9, adult]Onset: 429944-83-3028RusoihwGswvj nutritional; endocrine; and metabolic disorders (1 source)Obese class I; Translations: [Body mass index (BMI) 34.0-34.9, adult] Onset: 36-16-3197CeyytyvJjjed nutritional; endocrine; and metabolic disorders (1 source)H/O: Disorder; Translations: [Personal history of other endocrine, nutritional and metabolic disease]Onset: 18-70-7287NayqafyfXatio nutritional; endocrine; and metabolic disorders (2 sources)H/O: thyroid disorder; Translations: [Personal history of other endocrine, nutritional and metabolic disease]93-28-7191BlpfanqtRqvld screening for suspected conditions (not mental disorders or infectious disease) (12 sources)Encounter for screening for malignant neoplasm of cervix; Translations: [Encounter for screening for diabetes mellitus]Onset: 10-28-2021 EpisodicOther skin disorders (1 source)Podopompholyx; Translations: [Dyshidrosis [pompholyx]]Onset: 43-21-3606ZegutqluIrzcq upper respiratory disease (20 sources)Allergy to -12-9997KgxlozxXnbxf upper respiratory disease (1 source)Polyp of nasal sinus; Translations: [Nasal polyp, unspecified]Onset: 21-94-2168VpcrzzmaShktz upper respiratory infections (8 sources)Chronic sinusitis; Translations: [Chronic sinusitis, unspecified] Onset: 17-35-1387WuymknvCnbriovm codes; unclassified (1 source)Sleep disorder; Translations: [Other sleep disorders]Onset: 10-20-2022 ChronicResidual codes; unclassified (20 sources)Obstructive sleep apnea syndrome; Translations: [Obstructive sleep apnea (adult) (pediatric)]Onset: 938971-59-5676JowvegyKzhgbanr codes; unclassified (8 sources)Patient encounter status; Translations: [Other specified health status]Onset: 85-33-7017GazhrhxuBztrvesz codes; unclassified (1 source)39 weeks gestation of ; Translations: [39 WEEKS GESTATION OF ]Onset: 18-87-1349XyurzwbeBodyinnj codes; unclassified (1 source)Family history of diabetes mellitus; Translations: [FAMILY HISTORY OF DIABETES MELLITUS]Onset: 47-14-5548NvhlykgzSiuacake codes; unclassified (1 source)Family history of stroke; Translations: [FAMILY HISTORY OF STROKE] Onset: 60-97-5554YjwiokprTcuzsqju codes; unclassified (1 source)38 weeks gestation of ; Translations: [38 WEEKS GESTATION OF ]Onset: 35-56-2433BvrwcoguDbuqbhfz codes; unclassified (1 source)37 weeks gestation of ; Translations: [37 WEEKS GESTATION OF ]Onset: 18-29-4375XqszznotVmqbxnwm codes; unclassified (1 source)35 weeks gestation of ; Translations: [35 WEEKS GESTATION OF ]Onset: 65-13-8247HlehfkrdGksyvwyg codes; unclassified (1 source)34 weeks gestation of ; Translations: [34 WEEKS GESTATION OF ]Onset: 01-66-9265SvbtziycKwcjpkmb codes; unclassified (1 source)33 weeks gestation of ; Translations: [33 WEEKS GESTATION OF ]Onset: 67-99-2564AzrswfozCncrwwzi codes; unclassified (1 source)32 weeks gestation of ; Translations: [32 WEEKS GESTATION OF ]Onset: 86-93-0301AynekcyqMbrperjr codes; unclassified (1 source)31 weeks gestation of ; Translations: [31 WEEKS GESTATION OF ]Onset: 54-23-9041YqsfbrahGgthrzrb codes; unclassified (20 sources)Sleep icwvvogg09-44-4710YcudlampLyriresk codes; unclassified (1 source)Localized edema; Translations: [Localized edema]Onset: 11-09-2023 EpisodicResidual codes; unclassified (2 sources)Gestation period, 14 weeks; Translations: [14 weeks gestation of ]83-37-7111ToabldghZvuwwmnj codes; unclassified (2 sources)Gestation period, 13 weeks; Translations: [13 weeks gestation of ]92-83-1770MidydlbhYeraokat codes; unclassified (2 sources)Gestation period, 16 weeks; Translations: [16 weeks gestation of ]07-31-2773SoufeyolUkjfpiek codes; unclassified (2 sources)Gestation period, 19 weeks; Translations: [19 weeks gestation of ]80-39-1286YexgqhrpCqzrxsgf codes; unclassified (3 sources)Gestation period, 22 weeks; Translations: [22 weeks gestation of ]29-76-5487LdqkcwpyYngjbtgx codes; unclassified (3 sources)Family history of autism; Translations: [Family history of other mental and behavioral disorders]63-12-2113XjamacldSynqungz codes; unclassified (2 sources)Gestation period, 23 weeks; Translations: [23 weeks gestation of ]91-43-2206YtljyufpQrletcqr codes; unclassified (2 sources)Gestation period, 25 weeks; Translations: [25 weeks gestation of ]06-42-0583JjegsbgsAorgvgdm codes; unclassified (1 source)Gestation period, 27 weeks; Translations: [27 weeks gestation of ]70-14-8598HwyhabhaJiqlpudv codes; unclassified (1 source)22 weeks gestation of ; Translations: [22 weeks gestation of ]Onset: 65-12-5495MnmlugqoTkkcsybz codes; unclassified (2 sources)Gestation period, 28 weeks; Translations: [28 weeks gestation of ]50-10-7923LeogijhsOvzinjja codes; unclassified (1 source)Gestation period, 29 weeks; Translations: [29 weeks gestation of ]75-99-9199TmkmxwquRhpnvxdn codes; unclassified (2 sources)Gestation period, 30 weeks; Translations: [30 weeks gestation of ]10-57-7855UehnqjigGfcxorw disorders (20 sources)Hypothyroidism; Translations: [Hypothyroidism, unspecified]Onset: 179808-29-9514RtkicglZcvzocj disorders (20 sources)Disorder of thyroid, unspecified; Translations: [Disorder of thyroid gland]Onset: 914934-29-3207SsxnfiuzQxfesyvhu cerebral ischemia (1 source)Transient cerebral ischemia; Translations: [Transient cerebral ischemic attack, unspecified]Onset: 789212-20-9262VcgyzboSobpjlanyntm (20 sources)History of UPIQ-OxH-652-11-2022Unclassified (20 sources)Inhalation aroerc83-28-9957Iozxrqffduik (20 sources)Ekc-mdgafu69-52qwphza56-24-9466Kdwnrguqgpvm (1 source)CONTACT W/AND (SUSP) EXPOS COVID-19; Translations: [CONTACT W/AND (SUSP) EXPOS COVID-19]Onset: 71-26-0165Ovoxzgmbwzkp (15 sources)Patient encounter bfupcf92-28-4191Mncyjilylarh (1 source)MFM consultOnset: 91-18-3119Anxwfwmljecg (1 source)Gestational DiabetesOnset: 20-96-7193Yfovk infection (20 sources)Viral -09-6347Zpplhrlg Past or Other Problems Problem ClassificationProblemDateDocumented DateEpisodic/ChronicAbdominal pain (20 sources)Abdominal pain; Translations: [Pain in pelvis]Onset: 02-01-2019 61-30-3023EfgoiqgmJacji bronchitis (20 sources)Acute infective bronchitis; Translations: [Acute bronchitis due to other specified organisms]Onset: 542152-10-7860ReeqchjgDvshn posthemorrhagic anemia (20 sources)Acute posthemorrhagic anemia; Translations: [Acute posthemorrhagic anemia]Onset: 592302-50-0697ImahrgajEjuvguwz reactions (20 sources)Other allergy status, other than to drugs and biological substances; Translations: [Ogqoj-uy-gohgkwl vesicular eczema of hands and feet]Onset: 70-41-0170BslocuyjKxyzwadzi infection; unspecified site (20 sources)Bacterial infectious disease; Translations: [Other bacterial infections of unspecified site]Onset: 425213-79-3885DivccrowKvuektua of urinary tract (20 sources)History of calculus of kidney; Translations: [Personal history of urinary calculi]Onset: 715898-43-6824EtdwgyzmOoacfnb dysrhythmias (20 sources)Palpitations; Translations: [Palpitations]Onset: 08-26-2019 71-75-8674AzljiyohHevsohjafo associated with dizziness or vertigo (20 sources)Dizziness; Translations: [Dizziness and giddiness]Onset: 02-05-2019 29-22-6497QdpqixfgDugvegbmzs and other anemia (20 sources)Anemia; Translations: [Anemia, unspecified]Onset: 29-05-7286Lxhtssrd Diabetes mellitus without complication (20 sources)Prediabetes; Translations: [Prediabetes]Onset: 86-31-3665Ogtasmcg Diabetes or abnormal glucose tolerance complicating ; childbirth; or the puerperium (20 sources)Gestational diabetes mellitus in , unspecified control; Translations: [Gestational diabetes mellitus in childbirth, unspecified control] Onset: 11-98-2363BkgrvsfzAenojbvt of mouth; excluding dental (20 sources)Xerostomia; Translations: [Dry mouth, unspecified]Onset: 12-22-2022 EpisodicFluid and electrolyte disorders (20 sources)Cerebral hyponatremia; Translations: [Hypo-osmolality and hyponatremia]Onset: 83-30-4045NoctftztEjctohzzjtpkdljd hemorrhage (20 sources)Hematochezia; Translations: [Blood-tinged feces]Onset: 06-12-2023 48-05-5072RzqbstgsIhphcbkzskduq symptoms and ill-defined conditions (20 sources)Genitourinary symptoms; Translations: [Unspecified symptoms and signs involving the genitourinary system]Onset: 71-36-6643NjzmysjzIvtkvccyngain and screening for infectious disease (20 sources)Antibody studies abnormal; Translations: [Raised antibody titer] Onset: 200504-32-6228MsoxmnpyThwqacy and fatigue (20 sources)Fatigue; Translations: [Other fatigue]Onset: EpisodicMycoses (20 sources)Candidiasis of vagina Resolved: 065667-12-0583VyistsdxNbiwkmssfzo deficiencies (20 sources)Vitamin B deficiency; Translations: [Deficiency of other specified B group vitamins]Onset: 681911-22-4170VuevalogKD-ugrjupf trauma to perineum and vulva (20 sources)First degree perineal tear during delivery - delivered; Translations: [First degree perineal laceration during delivery]Onset: 973596-60-7955FfdvicfkQhhom aftercare (20 sources)Long-term current use of anticoagulant; Translations: [pearl hand (current) use of anticoagulants]Onset: 944864-41-1140LvnerxsqEmzrr aftercare (20 sources)Long-term current use of drug therapy; Translations: [custodial (current) use of 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/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]Onset: EpisodicOther circulatory disease (20 sources)History of cerebrovascular accident; Translations: [Personal history of transient ischemic attack (TIA), and cerebral infarction without residual deficits]Onset: 519498-21-9227AllhjzfmTfmvvhf on above:reported by pt - related to antiphospholipid syndromeOther circulatory disease (20 sources)Elevated blood-pressure reading without diagnosis of hypertension; Translations: [Elevated blood-pressure reading, without diagnosis of hypertension]Onset: 719142-54-3607WfbxqwfjNrafo circulatory disease (20 sources)Elevated blood pressure; Translations: [Elevated blood-pressure reading, without diagnosis of hypertension]Onset: 031928-91-9950Iovquipj Other complications of ; puerperium affecting management of mother (20 sources) problem; Translations: [Unspecified disorders of ]Onset: 871765-91-7985XdpvxoxuQqsjc complications of ; puerperium affecting management of mother (1 source)Endocrine, nutritional and metabolic disease complicating , childbirth and puerperium; Translations: [Endocrine, nutritional and metabolic diseases complicating childbirth]Onset: 580605-49-9830AawxfmmrVwjrs complications of ; puerperium affecting management of mother (1 source)Complication of , childbirth and/or the puerperium; Translations: [Other diseases of the blood and blood-forming organs and certain disorders involving the immune mechanism complicating childbirth]Onset: 746720-83-8622JnqqgoxdMsplr complications of ; puerperium affecting management of mother (20 sources) hemorrhage; Translations: [Other immediate hemorrhage]Onset: 524695-30-2102BivtqrfpNtpgt complications of (1 source)Vomiting of ; Translations: [Vomiting of , unspecified]Onset: 307721-75-6579EohmocchNbkxn complications of (20 sources)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; Translations: [Maternal care for (suspected) chromosomal abnormality in fetus, not applicable or unspecified]Onset: 883796-34-6132FwzsiddpRwvob complications of (4 sources)Other specified related conditions, third trimester; Translations: [OTH SPEC PREG RELATEDCOND 3RD TRI]Onset: 32-91-3464PlzjdfriRpjyd complications of (2 sources)Other diseases of the blood and blood-forming organs and certain disorders involving the immune mechanism complicating , unspecified trimester; Translations: [Other diseases of the blood andblood-forming organs and certain disorders involving the immune mechanism complicating , un specified trimester]Onset: 89-89-2494UdtpyrywCpasw complications of (1 source)Supervision of elderly multigravida, second trimester; Translations: [Supervision of elderly multigravida, second trimester]Onset: 94-40-8459Lhccmmzy Other ear and sense organ disorders (20 sources)Referred otalgia of right ear; Translations: [Otalgia, right ear] Onset: 807150-02-6797LtthzhakAalbz female genital disorders (20 sources)Noninflammatory disorder of the vagina; Translations: [Other specified noninflammatory disorders ofvagina]Onset: 633891-81-6492Mvihaxja Other female genital disorders (20 sources)Disorder of female reproductive system; Translations: [Unspecified condition associated with femalegenital organs and menstrual cycle]Onset: 258876-14-0670KavxdnjkHvhnx female genital disorders (1 source)Other specified noninflammatory disorders of vagina; Translations: [OTH SPEC NONINFLAMMATORY D/O VAGINA]Onset: 53-92-3385WoeccyeqKzqwu female genital disorders (14 sources)Pelvic and perineal pain; Translations: [Pelvic and perineal pain] Onset: 282725-61-6580NvwzcmxmVmzsf hematologic conditions (20 sources)H/O: anemia - iron deficient; Translations: [Personal history of diseases of the blood and blood-forming organs and certain disorders involving the immune mechanism]Onset: 928076-08-7434JxbzjwkhZeigu infections; including parasitic (20 sources)Personal history of other infectious and parasitic diseases; Translations: [History of COVID-19]Onset: 587522-61-4397JmvewgmiQuwwr inflammatory condition of skin (1 source)Itching of skin; Translations: [Pruritus, unspecified]Onset: 287373-75-7955BluunlphXodlh inflammatory condition of skin (20 sources)Pruritus, unspecified; Translations: [Unspecified pruritic disorder] Onset: 953778-68-7841YoceeicqDzsyh injuries and conditions due to external causes (20 sources)Inhalation injury; Translations: [Injury, unspecified, initial encounter]Onset: 901346-86-3584CjigafspXsokd lower respiratory disease (20 sources)Dyspnea; Translations: [Dyspnea, unspecified]Onset: 06-12-2023 05-57-5735XulfoanbZlhuc lower respiratory disease (20 sources)H/O: asthma; Translations: [Personal history of other diseases of the respiratory system]Onset: 765517-47-9922NmkfkayyKczxx lower respiratory disease (20 sources)Snoring; Translations: [Snoring]Onset: 76-77-2582NldgsecgPthbq nervous system disorders (20 sources)Muscle fasciculation; Translations: [Fasciculation]Onset: 08-19-2021 EpisodicOther nervous system disorders (20 sources)Paresthesia of lower extremity; Translations: [Paresthesia of skin] Onset: 609439-73-5284IpcuspnjHxtsm nervous system disorders (20 sources)Acute postoperative pain; Translations: [Other acute postprocedural pain]Onset: 070496-96-8171NnedttynEkogp non-traumatic joint disorders (20 sources)Joint pain; Translations: [Pain in unspecified joint]Onset: 936875-81-6278NzmnaaxmNhhlm nutritional; endocrine; and metabolic disorders (20 sources)H/O: hypothyroidism; Translations: [Personal history of other endocrine, nutritional and metabolic disease]Onset: 490442-83-7718Fqpzwgkd Other and delivery including normal (20 sources)Normal ; Translations: [Encounter for supervision of normal , unspecified, first trimester]Onset: 961857-10-2639Mazsbuax Other skin disorders (20 sources)Xmatn-kv-ujizmux vesicular eczema of hands and feet; Translations: [Dyshidrosis [pompholyx]]Onset: 403523-02-1648PtjxghfnJgxbx upper respiratory disease (20 sources)Deviated nasal septum; Translations: [Deviated nasal septum]Onset: 87-66-9359NlwcvqehReqhv upper respiratory disease (20 sources)Polyp of nasal cavity and/or nasal sinus; Translations: [Nasal polyp, unspecified]Onset: 273352-97-0693AxfuhgyrDbvpi upper respiratory infections (20 sources)Acute upper respiratory infection Resolved: 092664-90-2752CrqsljnoBcqaqg media and related conditions (20 sources)Dysfunction of eustachian tube; Translations: [Disorder of right Eustachian tube]Onset: 593182-71-8145LctqycxlQdzzdbv cyst (20 sources)Cyst of ovary; Translations: [Cyst of right ovary]Onset: 02-06-2019 96-83-6050GkidxlsiBlxzylpt codes; unclassified (20 sources)Family history of female genital tract disorder Resolved: 004265-77-1422NhsnodkkAecqqror codes; unclassified (20 sources)FH: Anemia Resolved: 969389-28-6149OmctnzinNwrmjkee codes; unclassified (20 sources)First trimester ; Translations: [Less than 8 weeks gestation of ]Onset: 416016-44-1260UeyctxfbMexznble codes; unclassified (20 sources)Gestation period, 32 weeks; Translations: [32 weeks gestation of ]Onset: 906211-09-2509OcsrgswbRhtflfbd codes; unclassified (1 source)Gestation period, 33 weeks; Translations: [33 weeks gestation of ]Onset: 110376-19-8257WdsnhpumNyxgbygj codes; unclassified (1 source)Gestation period, 34 weeks; Translations: [34 weeks gestation of ]Onset: 649643-35-6663LwdxpnaqDcypuear codes; unclassified (1 source)Gestation period, 35 weeks; Translations: [35 weeks gestation of ]Onset: 673236-44-7166VtoxcgxiCfaqzype codes; unclassified (1 source)Gestation period, 36 weeks; Translations: [36 weeks gestation of ]Onset: 766967-65-5847JwhhytflAwsutmsi codes; unclassified (1 source)Gestation period, 37 weeks; Translations: [37 weeks gestation of ]Onset: 367122-24-9505UtgcwldfFwwdpziq codes; unclassified (1 source)Gestation period, 38 weeks; Translations: [38 weeks gestation of ]Onset: 142333-79-1358BrkhafrmJeuqmdrf codes; unclassified (1 source)Gestation period, 39 weeks; Translations: [39 weeks gestation of ]Onset: 825313-81-1758WbpqjeshGiifymkv codes; unclassified (20 sources)Other general symptoms and signs; Translations: [Other general symptoms]Onset: 099638-21-6162RapkreusNptzeteu codes; unclassified (1 source)Unspecified blood type, Rh negative; Translations: [UNSPECIFIED BLOOD TYPE RH NEGATIVE]Onset: 71-89-2262TcwjpfyzLraznpyd codes; unclassified (1 source)28 weeks gestation of ; Translations: [28 WEEKS GESTATION OF ]Onset: 62-39-2147UuwbgjhxApjdigxr codes; unclassified (20 sources)Intolerant of cold; Translations: [Other general symptoms and signs] Onset: 212796-59-0346EvpdoinpNvywpvvi codes; unclassified (20 sources)Non-smoker; Translations: [Other specified health status]Onset: 760823-51-8312RktkojlmMdvnuuia codes; unclassified (20 sources)Swelling of salivary gland; Translations: [Localized edema]Onset: 614345-84-8275LhufxbykVzigtlhhzkc; intervertebral disc disorders; other back problems (20 sources)Neck pain; Translations: [Cervicalgia]Onset: EpisodicSpontaneous (20 sources)Miscarriage Resolved: 124069-09-2467KafikiclKlqqmra (20 sources)Syncope and collapse; Translations: [Syncope and collapse]Onset: 451909-21-8184GjxubbpcOqkzkpwxsnbt (20 sources)PregnancyOnset: 02-20-2007 Resolved: 678964-24-5649Svwxwnjpuinb (20 sources)Suspected disease caused by 4584-eZmB92-91pVoN42-79-1490Nmlfcpfaabnq (1 source)Exposure to 2019 novel coronavirus; Translations: [Contact with and (suspected) exposure to COVID19]Urinary tract infections (20 sources)Infective urethritis; Translations: [Other urethritis]Onset: 03-22-7281Mqjlfpug Results Test NameValueInterpretationReference RangeFacilityUS OB BPP W NON-STRESS on 26[place]96[place] [address] Ultrasound Report Signed Patient: SANNA RENDON MR#: [id number] : 1985 Acct:[id number] Age/Sex: 39 / F ADM Date: 03/05/25 Loc: US Attending Dr: Wilton Herrmann D.O. Ordering Physician: Wilton Herrmann D.O. Date of Service: 03/05/25 Procedure(s): US OB BPP w non-stress Accession Number(s): [id number] cc: Wilton Herrmann D.O.; Physician,Non-Staff M.DLazara The [address] [address] Patient Name: SANNA RENDON MRN: [facility]:[id number] date: 1985 Sex: F Assigned Patient Location: [facility] Current Patient Location: Accession/Order Number: [id number] Exam Date: 03/05/2025 19:15 Report Date: 03/06/2025 [...] Pisano M.D. 03/06/2025 8:10 AM Dictation Location: [place] [address] Electronically authenticated by: [id number] Y Date: 03/06/2025 08:10 Dictated By: Pamela Pisano M.D. Signed By: 03/06/25812 DD/ 9 TD/TT: Staff Mechanical Engineer:TBHRadiology, Radiologist, - 03/06/2025 [place] [address] Ultrasound Report Signed Patient: SANNA RENDON MR#: [id number] : 1985 Acct:[id number] Age/Sex: 39 / F ADM Date: 03/05/25 Loc: US Attending Dr: Wilton Herrmann D.O. Ordering Physician: Wilton Herrmann D.O. Date of Service: 03/05/25 Procedure(s): US OB BPP w non-stress Accession Number(s): [id number] cc: Wilton Herrmann D.O.; Physician,Non-Staff Tamia The [place] [address] Patient Name: SANNA RENDON MRN: [facility]:[id number] date: 1985 Sex: F Assigned Patient Location: [facility] Current Patient Location: Accession/Order Number: [id number] Exam Date: 03/05/2025 19:15 Report Date: 03/06/2025 [...] Pisano M.D. 03/06/2025 8:10 AM Dictation Location: [place] [address] Electronically authenticated by: [id number] Y Date: 03/06/2025 08:10 Dictated By: Pamela Pisano M.D. Signed By: 03/06/25812 DD/ 9 TD/TT: Staff Mechanical Engineer: SHILOH HealthcareRadiology Study observation (narrative)SHILOH BrowningUS OB BPP W NON-STRESSOrdered By: Radiologist Radiology on 37-95-7644[facility] Work Phone: [phone]([place])D3 [facility] 433624-sxcupxmjkrchnr D3 [Mass/Vol]54.6 ng/qJTxhdhj56.0-80.0[facility] ClevelandComment on above: Order Comment: Specimen Type: BLOOD SPECIMENOrdering Facility: [facility] Address:[address] [place], [place] [address]Performed By: #### 1989-3 ####[facility] LABCLIA [id number] [address] Auto Differential panel (Bld)on 03-02-2025 Basophils (Bld) [#/Vol]0.03 10*3/uLNormal<0.11CMadison Health on above:Order Comment: Specimen Type: BLOOD SPECIMENOrdering Facility: [facility] Address:[address] [place] [address] Performed By: #### 11601-1 ####[facility] LABCLIA [id number] [place], [place] [address]Vazcsbkez/100 WBC (Bld)0.3 % NormalOhioHealth Grady Memorial Hospital on above:Order Comment: Specimen Type: BLOOD SPECIMENOrdering Facility: [facility] Address:[address] [place], [place] [address]Performed By: #### 86618-4 ####[facility] LABCLIA [id number] [place] [address] Differential cell count method Nom (Bld)AutoNormalCUniversity Hospitals [facility] Comment on above:Order Comment: Specimen Type: BLOOD SPECIMENOrdering Facility: [facility] Address:[address] [place] [address] Performed By: #### 64712-0 ####[facility] LABCLIA [id number] [place], [place] [address]Amnylxlbdpl (Bld) [#/Vol]0.06 10*3/uLNormal<0.46[facility] on above:Order Comment: Specimen Type: BLOOD SPECIMENOrdering Facility: [facility] Address:[address] [place], [place] [address]Performed By: #### 37060-4 ####[facility] LABCLIA [id number] [place], [place] [address]Mgdnxcaeyfw/100 WBC (Bld)0.7 %NormalOhioHealth Grady Memorial Hospital on above:Order Comment: Specimen Type: BLOOD SPECIMENOrdering Facility: [facility] Address:[address] [place], [place] [address]Performed By: #### 55172-6 ####[facility] LABIA [id number] [place], [place] [address]Bokvuhyxzoj distribution width (RBC) [Ratio]13.3 %Qhsldr71.5-15.0[facility] on above: Order Comment: Specimen Type: BLOOD SPECIMENOrdering Facility: [facility] Address:[address] [place], [place] [address]Performed By: #### 65977- 8 ####[facility] LABIA [id number] [place], [place] [address]Rhramrernw (Bld) [Volume fraction]33.0 %Low36.0-46.0 [facility] on above:Order Comment: Specimen Type: BLOOD SPECIMENOrdering Facility: [facility] Address:[address] [place], [place] [address]Performed By: #### 65914-1 ####[facility] LABIA [id number] [place], [place] [address]Smnyvtfogq (Bld) [Mass/Vol]11.6 g/aCFssxha29.5-15.5CMadison Health on above: Order Comment: Specimen Type: BLOOD SPECIMENOrdering Facility: [facility] Address:[address] [place], [place] [address]Performed By: #### 73568- 8 ####[facility] LABIA [id number] [place], [place] [address]Zjodugqk granulocytes (Bld) [#/Vol]0.04 10*3/uLNormal <0.10[facility] on above:Order Comment: Specimen Type: BLOOD SPECIMENOrdering Facility: [facility] Address:[address] [place], [place] [address]Performed By: #### 35272-4 ####[facility] LABCLIA [id number] [place], [place] [address]Tynphsrs granulocytes/100 WBC (Bld)0.5 %NormalOhioHealth Grady Memorial Hospital on above: Order Comment: Specimen Type: BLOOD SPECIMENOrdering Facility: [facility] Address:[address] [place], [place] [address]Performed By: #### 31682- 8 ####[facility] LABCLIA [id number] [place], [place] [address]Fsfibbqirmn (Bld) [#/Vol]2.31 10*3/uLNormal1.00-4.00 [facility] on above:Order Comment: Specimen Type: BLOOD SPECIMENOrdering Facility: [facility] Address:[address] [place], [place] [address]Performed By: #### 40383-0 ####[facility] LABIA [id number] [place], [place] [address]Zlmoqmqocsz/100 WBC (Bld)26.7 %NormalOhioHealth Grady Memorial Hospital on above:Order Comment: Specimen Type: BLOOD SPECIMENOrdering Facility: [facility] Address:[address] [place], [place] [address]Performed By: #### 46873-6 ####[facility] LABCLIA [id number] [place], [place] [address]SFJ (RBC) [Entitic mass]31.3 ykFnkzwc36.0-34.0[facility] on above:Order Comment: Specimen Type: BLOOD SPECIMENOrdering Facility: [facility] Address:[address] [place], [place] [address]Performed By: #### 00713-1 ####[facility] LABCLIA [id number] [place], [place] [address]QFFT (RBC) [Mass/Vol]35.2 g/cNTvttwu59.5-36.0[facility] on above: Order Comment: Specimen Type: BLOOD SPECIMENOrdering Facility: [facility] Address:[address] [place], [place] [address]Performed By: #### 61001- 8 ####[facility] LABCLIA [id number] [place], [place] [address]FSG (RBC) [Entitic vol]88.9 bOMxcnin24.0-100.0[facility] on above:Order Comment: Specimen Type: BLOOD SPECIMENOrdering Facility: [facility] Address:[address] [place], [place] [address]Performed By: #### 26316-1 ####[facility] LABIA [id number] [place], [place] [address]Pdxjncxyz (Bld) [#/Vol]0.63 10*3/uLNormal<0.87[facility] on above:Order Comment: Specimen Type: BLOOD SPECIMENOrdering Facility: [facility] Address:[address] [place], [place] [address]Performed By: #### 57857- 8 ####[facility] LABCLIA [id number] [place], [place] [address]Zlvvgygwp/100 WBC (Bld)7.3 %NormalOhioHealth Grady Memorial Hospital on above:Order Comment: Specimen Type: BLOOD SPECIMENOrdering Facility: [facility] Address:[address] [place], [place] [address]Performed By: #### 71460-6 ####[facility] LABIA [id number] [place], [place] [address]Vizyezppnuj (Bld) [#/Vol]5.57 10*3/uLNormal1.45-7.50[facility] on above:Order Comment: Specimen Type: BLOOD SPECIMENOrdering Facility: [facility] Address:[address] [place], [place] [address]Performed By: #### 08706-2 ####[facility] LABCLIA [id number] [place], [place] [address]Rokmpjerdbt/100 WBC (Bld)64.5 %NormalOhioHealth Grady Memorial Hospital on above:Order Comment: Specimen Type: BLOOD SPECIMENOrdering Facility: [facility] Address:[address] [place], [place] [address]Performed By: #### 07635-3 ####[facility] LABCLIA [id number] [place], [place] [address]Tzhgwgsuq RBC (Bld) [#/Vol] 10*3/uLNormal<0.01[facility] on above:Order Comment: Specimen Type: BLOOD SPECIMENOrdering Facility: [facility] Address:[address] [place], [place] [address]Performed By: #### 56012-6 ####[facility] LABCLIA [id number] [place], [place] [address]Mwcuiwujt RBC/100 WBC (Bld) [Ratio]0.0 /100 WBCNormal [facility] on above:Order Comment: Specimen Type: BLOOD SPECIMENOrdering Facility: [facility] Address:[address] [place], [place] [address]Performed By: #### 73519-9 ####[facility] LABCLIA [id number] [place], [place] [address]Urckkwgv mean volume (Bld) [Entitic vol]9.4 fLNormal9.0-12.7CMadison Health on above:Order Comment: Specimen Type: BLOOD SPECIMENOrdering Facility: [facility] Address:[address] [place] [address] Performed By: #### 28874-8 ####[facility] LABCLIA [id number] [place], [place] [address]Auvvnpwkf (Bld) [#/Vol]257 10*3/iBNwtxcj976-453KfourbxocOhioHealth Grady Memorial Hospital on above:Order Comment: Specimen Type: BLOOD SPECIMENOrdering Facility: [facility] Address:[address] [place], [place] [address]Performed By: #### 75897-5 ####[facility] LABCLIA [id number] [place], [place] [address]ZOI (Bld) [#/Vol]3.71 10*6/uLLow3.90-5.20[facility] on above:Order Comment: Specimen Type: BLOOD SPECIMENOrdering Facility: [facility] Address:[address] [place], [place] [address]Performed By: #### 33119-7 ####[facility] LABIA [id number] [place], [place] [address]MZR (Bld) [#/Vol]8.64 10*3/uL Normal3.70-11.00[facility] on above:Order Comment: Specimen Type: BLOOD SPECIMENOrdering Facility: [facility] Address:[address] [place], [place] [address]Performed By: #### 39723-4 ####[facility] LABIA [id number] [place], [place] [address]CJRHDYyo 72-40-2149KQBEULBrgzc (SP) Office ([place]) SANNA RENDON ([id number]) 1985 F Date Time Provider Department 03/02/25 11:30 AM KATHERINE NEGRETE During your visit today, we recorded the following information about you: Temperature Pulse Respiration Blood pressure 97.2 degrees 73/minute 16/minute 133/79 Weight 97.2 kg Katherine Negrete APRN.CNP 03/02/2025 8:18 PM Signed NAME: Sanna Rendon CLINIC NO.: [id number] DATE OF SERVICE: March 02, 2025 ([place]elope) [...] later in 2018. These were found in [place], [place]. 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 NormalThe [facility] Hospitalprehensive metabolic 2000 panelon 03-02-2025 Albumin [Mass/Vol]4.1 g/dLNormal3.9-4.9CMadison Health on above:Order Comment: Specimen Type: BLOOD SPECIMENOrdering Facility: [facility] Address:[address] [place], [place] [address]Performed By: #### 53133-6 ####[facility] LABCLIA [id number] [place], [place] [address]ZWN [Catalytic activity/Vol]64 U/FUajaju81-770 [facility] on above:Order Comment: Specimen Type: BLOOD SPECIMENOrdering Facility: [facility] Address:[address] [place], [place] [address]Performed By: #### 67123-2 ####[facility] LABCLIA [id number] [place], [place] [address]ORH [Catalytic activity/Vol]10 U/LNormal7-38[facility] on above:Order Comment: Specimen Type: BLOOD SPECIMENOrdering Facility: [facility] Address:[address] [place], [place] [address]Performed By: #### 33346- 8 ####[facility] LABCLIA [id number] [place], [place] [address]Lsktr gap [Moles/Vol]13 mmol/LNormal8-15[facility] on above:Order Comment: Specimen Type: BLOOD SPECIMENOrdering Facility: [facility] Address:[address] [place], [place] [address]Performed By: #### 04371-6 ####[facility] LABCLIA [id number] [place], [place] [address]GCP [Catalytic activity/Vol]12 U/GGfl96-51VuqruljguOhioHealth Grady Memorial Hospital on above:Order Comment: Specimen Type: BLOOD SPECIMENOrdering Facility: [facility] Address:[address] [place], [place] [address]Performed By: #### 75239-3 ####[facility] LABCLIA [id number] [place] [address] Bilirubin [Mass/Vol]0.2 mg/dLNormal0.2-1.3CMadison Health on above:Order Comment: Specimen Type: BLOOD SPECIMENOrdering Facility: [facility] Address:[address] [place], [place] [address]Performed By: #### 42249-6 ####[facility] LABCLIA [id number] [facility] [place], [place] [address]Qxgihrz [Mass/Vol]10.3 mg/dLHigh8.5-10.2CMadison Health on above:Order Comment: Specimen Type: BLOOD SPECIMENOrdering Facility: [facility] Address:[address] [place], [place] [address]Performed By: #### 83535-4 ####[facility] LABCLIA [id number] [place], [place] [address]Wugcurqf [Moles/Vol]97 mmol/MFbn20-413PcchugabmOhioHealth Grady Memorial Hospital on above:Order Comment: Specimen Type: BLOOD SPECIMENOrdering Facility: [facility] Address:[address] [place], [place] [address]Performed By: #### 36731- 8 ####[facility] LABCLIA [id number] [facility] [place], [place] [address]GH5 [Moles/Vol]21 mmol/AHpp37-25JhxzxlstjOhioHealth Grady Memorial Hospital on above:Order Comment: Specimen Type: BLOOD SPECIMENOrdering Facility: [facility] Address:[address] [place], [place] [address]Performed By: #### 87980-5 ####[facility] LABCLIA [id number] [place], [place] [address]Zvfuesxohj [Mass/Vol]0.54 mg/dL Low0.58-0.96[facility] on above:Order Comment: Specimen Type: BLOOD SPECIMENOrdering Facility: [facility] Address:[address] [place], [place] [address]Performed By: #### 80759-7 ####[facility] LABCLIA [id number] [place] [address] eGFRcr SerPlBld CKD-EPI 3311425 mL/min/1.73m???Normal>=60[facility] on above:Order Comment: Specimen Type: BLOOD SPECIMENOrdering Facility: [facility] Address:[address] [place], [place] [address]Result Comment: Estimated Glomerular Filtration Rate (eGFR) is [...] accurately reflect actual GFR. Performed By: #### 74640-6 ####[facility] LABCLIA [id number] [place], [place] [address]Yhmztmf [Mass/Vol]71 mg/dLLow 74-99[facility] on above:Order Comment: Specimen Type: BLOOD SPECIMENOrdering Facility: [facility] Address:[address] [place], [place] [address]Result Comment: The [place] [employer] (ADA) provides guidance for cutoff [...] Standards of Medical Care in Diabetes 2016, [place] [employer]. Diabetes Care. 2016.39(Suppl 1).Performed By: #### 87483-8 ####[facility] LABCLIA [id number] [place], [place] [address]Keryztkjp [Moles/Vol]3.9 mmol/LNormal3.7-5.1CMadison Health on above:Order Comment: Specimen Type: BLOOD SPECIMENOrdering Facility: [facility] Address:[address] [place], [place] [address]Performed By: #### 14505-0 ####[facility] LABCLIA [id number] [place], [place] [address]Eqdizjl [Mass/Vol]7.2 g/dLNormal6.3-8.0[facility] on above:Order Comment: Specimen Type: BLOOD SPECIMENOrdering Facility: [facility] Address:[address] [place], [place] [address]Performed By: #### 70725- 8 ####[facility] LABCLIA [id number] [place], [place] [address]Aqlend [Moles/Vol]131 mmol/RTrj370-059QnrjpdbwpOhioHealth Grady Memorial Hospital on above:Order Comment: Specimen Type: BLOOD SPECIMENOrdering Facility: [facility] Address:[address] [place], [place] [address]Performed By: #### 16786-8 ####[facility] LABCLIA [id number] [place], [place] [address]Dmmr nitrogen [Mass/Vol]9 mg/dL Normal7-21[facility] on above:Order Comment: Specimen Type: BLOOD SPECIMENOrdering Facility: [facility] Address:[address] [place], [place] [address]Performed By: #### 21642-1 ####[facility] LABCLIA [id number] [place] [address] US OB BPP W NON-STRESSon 31-75-6334[address] [address] Ultrasound Report Signed Patient: SANNA RENDON MR#: [id number] : 1985 Acct:[id number] Age/Sex: 39 / F ADM Date: 02/26/25 Loc: US Attending Dr: Wilton Herrmann D.O. Ordering Physician: Wilton Herrmann D.O. Date of Service: 02/26/25 Procedure(s): US OB BPP w non-stress Accession Number(s): [id number] cc: Wilton Herrmann D.O.; Physician,Non-Staff Tamia The [address] [address] Patient Name: SANNA RENDON MRN: [facility]:[id number] date: 1985 Sex: F Assigned Patient Location: US Current Patient Location: Accession/Order Number: [id number] Exam Date: 02/26/2025 19:42 Report Date: 02/27/2025 [...] Pisano M.D. 02/27/2025 10:53 AM Dictation Location: [place] [address] Electronically authenticated by: [id number] Y Date: 02/27/2025 10:53 Dictated By: Pamela Pisano M.D. Signed By: 02/27/25 1056 DD/ 105 TD/TT: Staff Mechanical Engineer:MANUELHRadiology, Radiologist, - 02/27/2025 [place] [address] Ultrasound Report Signed Patient: SANNA RENDON MR#: [id number] : 1985 Acct:[id number] Age/Sex: 39 / F ADM Date: 02/26/25 Loc: US Attending Dr: Wilton Herrmann D.O. Ordering Physician: Wilton Herrmann D.O. Date of Service: 02/26/25 Procedure(s): US OB BPP w non-stress Accession Number(s): [id number] cc: Wilton Herrmann D.O.; Physician,Non-Staff Tamia The [place] [address] Patient Name: SANNA RENDON MRN: [facility]:[id number] date: 1985 Sex: F Assigned Patient Location: Current Patient Location: Accession/Order Number: [id number] Exam Date: 02/26/2025 19:42 Report Date: 02/27/2025 [...] Pisano M.D. 02/27/2025 10:53 AM Dictation Location: [place] [address] Electronically authenticated by: [id number] Y Date: 02/27/2025 10:53 Dictated By: Pamela Pisano M.D. Signed By: 02/27/25 1056 DD/ 1053 TD/TT: Staff Mechanical Engineer: [facility] HealthcareRadiology Study observation (narrative)[facility] HealthcareUS OB BPP W NON-STRESSOrdered By: Radiologist Radiology on 61-38-5416AGYH [employer] Work Phone: Urinalysis macro (dipstick) panel (U)on [...] HealthcareNo Panel InformationOrdered By: Radiologist Radiology on 78-45-2553SFJD [employer] Work Phone: No Panel Informationon 15-74-4086Ncfxadnbc Study observation (narrative)[facility] W NON-STRESSon 02-20-2025 [place] [address] Ultrasound Report Signed Patient: SANNA RENDON MR#: [id number] : 1985 Acct:[id number] Age/Sex: 39 / F ADM Date: 02/19/25 Loc: US Attending Dr: Wilton Herrmann D.O. Ordering Physician: Wilton Herrmann D.O. Date of Service: 02/19/25 Procedure(s): US OB BPP w non-stress Accession Number(s): [id number] cc: Wilton Herrmann D.O.; Physician,Non-Staff Tamia The [place] [id number] Patient Name: SANNA RENDON MRN: [facility]:[id number] date: 1985 Sex: F Assigned Patient Location: LAB Current Patient Location: Accession/Order Number: [id number] Exam Date: 02/19/2025 19:47 Report Date: 02/20/2025 [...] Pisano M.D. 02/20/2025 8:37 AM Dictation Location: [place] [address] Electronically authenticated by: [id number] Y Date: 02/20/2025 08:37 Dictated By: Pamela Pisano M.D. Signed By: 02/20/2540 DD/ TD/TT: Staff Mechanical Engineer:TBHRadiology, Radiologist, - 02/20/2025 [place] [address] Ultrasound Report Signed Patient: SANNA RENDON MR#: [id number] : 1985 Acct:[id number] Age/Sex: 39 / F ADM Date: 02/19/25 Loc: US Attending Dr: Wilton Herrmann D.O. Ordering Physician: Wilton Herrmann D.O. Date of Service: 02/19/25 Procedure(s): US OB BPP w non-stress Accession Number(s): [id number] cc: Wilton Herrmann D.O.; Physician,Non-Staff Tamia The [address] [address] Patient Name: SANNA RENDON MRN: [facility]:[id number] date: 1985 Sex: F Assigned Patient Location: LAB Current Patient Location: Accession/Order Number: [id number] Exam Date: 02/19/2025 19:47 Report Date: 02/20/2025 [...] Pisano M.D. 02/20/2025 8:37 AM Dictation Location: [place] [address] Electronically authenticated by: [id number] Y Date: 02/20/2025 08:37 Dictated By: Pamela Pisano M.D. Signed By: 02/20/2540 DD/ 6 TD/TT: Staff Mechanical Engineer: SHILOH ROBB GROWTHon [id number], [place] [address] Ultrasound Report Signed Patient: SANNA RENDON MR#: [id number] : 1985 Acct:[id number] Age/Sex: 39 / F ADM Date: 02/19/25 Loc: US Attending Dr: Wilton Herrmann D.O. Ordering Physician: Wilton Herrmann D.O. Date of Service: 02/19/25 Procedure(s): US OB growth Accession Number(s): [id number] cc: Wilton Herrmann D.O.; Physician,Non-Staff [place] [address] Patient Name: SANNA RENDON MRN: [facility]:[id number] date: 1985 Sex: F Assigned Patient Location: LAB Current Patient Location: Accession/Order Number: [id number] Exam Date: 02/19/2025 19:47 Report Date: 02/20/2025 [...] Pisano M.D. 02/20/2025 8:37 AM Dictation Location: [place] [address] Electronically authenticated by: [id number] Y Date: 02/20/2025 08:37 Dictated By: Pamela Pisano M.D. Signed By: 02/20/2540 DD/ 6 TD/TT: Staff Mechanical Engineer:TBHRadiology, Radiologist, MD - 02/20/2025 [place] [address] Ultrasound Report Signed Patient: SANNA RENDON MR#: [id number] : 1985 Acct:[id number] Age/Sex: 39 / F ADM Date: 02/19/25 Loc: US Attending Dr: Wilton Herrmann D.O. Ordering Physician: Wilton Herrmann D.O. Date of Service: 02/19/25 Procedure(s): US OB growth Accession Number(s): [id number] cc: Wilton Herrmann D.O.; Physician,Non-Staff Tamia [place] [id number] Patient Name: SANNA RENDON MRN: [facility]:[id number] date: 1985 Sex: F Assigned Patient Location: LAB Current Patient Location: Accession/Order Number: [id number] Exam Date: 02/19/2025 19:47 Report Date: 02/20/2025 [...] Pisano M.D. 02/20/2025 8:37 AM Dictation Location: [place] [address] Electronically authenticated by: [id number] Y Date: 02/20/2025 08:37 Dictated By: Pamela Pisano M.D. Signed By: 02/20/25 0840 DD/ 0837 TD/TT: Staff Mechanical Engineer: SHILOH Colon CBC WITH AUTO DIFFon 05-26-9687QFXNTTCEL ABSOLUTE AUTO0.0NOMS HealthcareBasophils/100 WBC (Bld)0.2 %0.2 - 2.0 %NOMS HealthcareEosinophils/100 WBC (Bld)0.3 %Low0.9 - 7.0 %NOMS HealthcareErythrocyte distribution width (RBC) [Ratio]13.1 %11.0 - 15.0 %NOMS HealthcareHematocrit (Bld) [Volume fraction]34.6 %Low36.0 - 48.0 %NOMS HealthcareHemoglobin (Bld) [Mass/Vol]12.1 g/dL12.0 - 16.0 g/dLNOSaint John's Health SystemIMMATURE GRANULOCYTES ABS AUTO0.06HighNOTN HealthcareImmature granulocytes/100 WBC (Bld)0.6 %High0.0 - 0.5 %[facility] John'sInterpretation and review of laboratory resultsAbnormalNOTN HealthcareLYMPHOCYTES ABSOLUTE AUTO2.3 NOMSaint John'S Saint Francis HospitalLymphocytes/100 WBC (Bld)24.3 %20.5 - 60.0 %[facility] CenterH (RBC) [Entitic mass]31.7 pg26.7 - 34.0 pgMetropolitan Saint Louis Psychiatric CenterHC (RBC) [Mass/Vol] 35.0 g/dL29.9 - 35.2 g/dLMetropolitan Saint Louis Psychiatric CenterV (RBC) [Entitic vol]90.6 fL81.0 - 99.[address] John'sMONOCYTES ABSOLUTE AUTO0.5NOTN HealthcareMonocytes/100 WBC (Bld)5.6 %1.7 - 12.0 %[facility] John'sNEUTROPHILS ABSOLUTE AUTO6.6HighNOSaint John's Health SystemNeutrophils/100 WBC (Bld)69.0 %43.0 - 75.0 %[facility] John'sPlatelet mean volume (Bld) [Entitic vol]9.7 fL9.5 - 13.5 fLNOSaint John's Health SystemTBH EO #0.0NOMS [facility] HospitalTB QYI574FBYV [facility] HospitalTB RBC3.82LowNOMS [facility]'S HospitalTB WBC9.6NOTN HealthcareCLINISYNCNOMS HealthcareUrinalysis macro (dipstick) panel (U)on 93-73-7135Moawnowhg, UANegativeNegative - 4(70) +++ mg/dLNOTN HealthcareBlood, UANegativeNegative - 50 Max/mcLNOTN HealthcareClarity, UAClearNOMS Healthcare Color, UAYellowNOMS HealthcareGlucose, UANegativeNegative - 2000(110) ++++ mg/dL [facility] John'sInterpretation and review of laboratory resultsAbnormalNOTN HealthcareKetones, UANegativeNegative - 160(16) ++++ mg/dLSALT LAKE [facility] Healthcare Leukocytes, UATraceNegative - 500+++ John/mcLNOTN HealthcareNitrite, UANegative Negative - PositiveNOTN HealthcarepH, UA6.55 - 9NOMS HealthcareProtein, UA NegativeNegative - 2000(20) ++++ mg/dLNOMS HealthcareSpec Grav, UA1.0051 - 1.03 NOMS HealthcareUrobilinogen, UA2.00.2 - 12 mg/dLNOSaint John's Health SystemNOTN Healthcare CNPNon 37-16-3002WTDDPzehysvju ([place]) SANNA RENDON ([id number]) 1985 F Date Time Provider Department 01/29/25 RACHAEL JOHNSON During your visit today, we [...] Date Reviewed: 12/24/2024 Reviewed by: Katherine Negrete APRN.[employer] - Fully Assessed Reason for Visit: Fatigue [...] 05/28/2024 Encounter Status:Closed by RACHAEL JOHNSON on 01/30/25NoSt. Mary's Medical [facility], [facility] Campuslester 58-30-5210YYGMGnzyhumec ([place]) JUSTICE,KATIE ([id number]) 1985 F Date Time Provider Department 01/26/25 [...] Date Reviewed: 12/24/2024 Reviewed by: Katherine Negrete APRN.[employer] - Fully Assessed Prescriptions as of 01/26/2025 [...] 05/28/2024 Encounter Status:Closed by RACHAEL JOHNSON on 01/26/25NoalCUniversity Hospitals TriPoint Medical CenterUrinalysis macro (dipstick) panel (U)on 31-01-3571Ibebojnio, UANegative Negative - 4(70) +++ mg/dLNOMS HealthcareBlood, [...] HealthcareUrobilinogen, UA0.20.2 - 12 mg/dLNOMS HealthcareNOMS HealthcareTSHon 03-21-6065PGQ Qn1.85 m[IU]/LNormal 0.34-5.60Fisher [facility] Maryland Medical CenterComment on above:Performed By: #### [id number] #### Braulio [facility] [address] [place], [place] [address]Qyhhnbrrkd macro (dipstick) panel (U)on 46-99-3715Ngoseaxvj, UA NegativeNegative - 4(70) +++ mg/dLNOMS HealthcareBlood, [...] HealthcareNOMS HealthcareCBC W Auto Differential panel (Bld)on 41-74-1969Sjhonpjif (Bld) [#/Vol]10*3/uLNormal<0.11CUniversity Hospitals TriPoint Medical CenterComhurley medical center on above:Order Comment: Specimen Type: BLOOD SPECIMENOrdering Facility: [facility] Address:[address] [place], [place] [address]Udbysxnex By: #### 67765-9 ####[facility] LABCLIA [id number] [place], [place] [address]Zgfvulmqs/100 WBC (Bld)0.2 % NormalCleWooster Community Hospital on above:Order Comment: Specimen Type: BLOOD SPECIMENOrdering Facility: [facility] Address:[address] [place], [place] [address]Performed By: #### 93507-3 ####[facility] LABIA [id number] [place] [address] Differential cell count method Nom (Bld)AutoNormalClevelColumbus Regional Healthcare System Comment on above:Order Comment: Specimen Type: BLOOD SPECIMENOrdering Facility: [facility] Address:[address] [place] [address] Performed By: #### 95115-8 ####[facility] LABIA [id number] [place], [place] [address]Kgfplbfoepp (Bld) [#/Vol]0.03 10*3/uLNormal<0.46[facility] on above:Order Comment: Specimen Type: BLOOD SPECIMENOrdering Facility: [facility] Address:[address] [place], [place] [address]Performed By: #### 15586-7 ####[facility] LABIA [id number] [place], [place] [address]Xrvnbjzbuyz/100 WBC (Bld)0.4 %NormalOhioHealth Grady Memorial Hospital on above:Order Comment: Specimen Type: BLOOD SPECIMENOrdering Facility: [facility] Address:[address] [place], [place] [address]Performed By: #### 06294-2 ####[facility] LABIA [id number] [place], [place] [address]Lpzyicdqzwk distribution width (RBC) [Ratio]13.5 %Bvzlxx87.5-15.0[facility] on above: Order Comment: Specimen Type: BLOOD SPECIMENOrdering Facility: [facility] Address:[address] [place], [place] [address]Performed By: #### 80512- 8 ####[facility] LABCLIA [id number] [place], [place] [address]Slxlwvbkkb (Bld) [Volume fraction]34.6 %Low36.0-46.0 [facility] on above:Order Comment: Specimen Type: BLOOD SPECIMENOrdering Facility: [facility] Address:[address] [place], [place] [address]Performed By: #### 03763-3 ####[facility] LABIA [id number] [place], [place] [address]Sooxeotbpb (Bld) [Mass/Vol]12.0 g/sDNgltnc70.5-15.5CMadison Health on above: Order Comment: Specimen Type: BLOOD SPECIMENOrdering Facility: [facility] Address:[address] [place], [place] [address]Performed By: #### 60004- 8 ####[facility] LABIA [id number] [place], [place] [address]Urcznzsi granulocytes (Bld) [#/Vol]0.04 10*3/uLNormal <0.10[facility] on above:Order Comment: Specimen Type: BLOOD SPECIMENOrdering Facility: [facility] Address:[address] [place], [place] [address]Performed By: #### 77461-5 ####[facility]ENTERKENT[facility] LABIA [id number] [place], [place] [address]Pytutegd granulocytes/100 WBC (Bld)0.5 %NormalOhioHealth Grady Memorial Hospital on above: Order Comment: Specimen Type: BLOOD SPECIMENOrdering Facility: [facility] Address:[address] [place], [place] [address]Performed By: #### 34047- 8 ####[facility] LABIA [id number] [place], [place] [address]Xszwphitnxh (Bld) [#/Vol]2.45 10*3/uLNormal1.00-4.00 [facility] on above:Order Comment: Specimen Type: BLOOD SPECIMENOrdering Facility: [facility] Address:[address] [place], [place] [address]Performed By: #### 40586-5 ####[facility] LABIA [id number] [place], [place] [address]Yzfqhnbssyq/100 WBC (Bld)28.7 %NormalOhioHealth Grady Memorial Hospital on above:Order Comment: Specimen Type: BLOOD SPECIMENOrdering Facility: [facility] Address:[address] [place], [place] [address]Performed By: #### 60953-5 ####[facility] LABCLIA [id number] [place], [place] [address]CSZ (RBC) [Entitic mass]31.6 ibCklzns01.0-34.0[facility] on above:Order Comment: Specimen Type: BLOOD SPECIMENOrdering Facility: [facility] Address:[address] [place], [place] [address]Performed By: #### 80503-2 ####[facility] LABCLIA [id number] [place], [place] [address]JXIQ (RBC) [Mass/Vol]34.7 g/fELqwqcg02.5-36.0[facility] on above: Order Comment: Specimen Type: BLOOD SPECIMENOrdering Facility: [facility] Address:[address] [place], [place] [address]Performed By: #### 14969- 8 ####[facility] LABCLIA [id number] [place], [place] [address]RQP (RBC) [Entitic vol]91.1 zYDtsfdn42.0-100.0[facility] on above:Order Comment: Specimen Type: BLOOD SPECIMENOrdering Facility: [facility] Address:[address] [place], [place] [address]Performed By: #### 74990-6 ####[facility] LABCLIA [id number] [place], [place] [address]Ufvfemaik (Bld) [#/Vol]0.44 10*3/uLNormal<0.87[facility] on above:Order Comment: Specimen Type: BLOOD SPECIMENOrdering Facility: [facility] Address:[address] [place], [place] [address]Performed By: #### 55686- 8 ####[facility] LABCLIA [id number] [place], [place] [address]Qabthtijj/100 WBC (Bld)5.1 %NormalOhioHealth Grady Memorial Hospital on above:Order Comment: Specimen Type: BLOOD SPECIMENOrdering Facility: [facility] Address:[address] [place], [place] [address]Performed By: #### 32717-6 ####[facility] LABIA [id number] [place], [place] [address]Agayderasou (Bld) [#/Vol]5.57 10*3/uLNormal1.45-7.50[facility] on above:Order Comment: Specimen Type: BLOOD SPECIMENOrdering Facility: [facility] Address:[address] [place], [place] [address]Performed By: #### 99840-5 ####[facility] LABIA [id number] [place], [place] [address]Bujqherpvri/100 WBC (Bld)65.1 %NormalOhioHealth Grady Memorial Hospital on above:Order Comment: Specimen Type: BLOOD SPECIMENOrdering Facility: [facility] Address:[address] [place], [place] [address]Performed By: #### 06485-5 ####[facility] LABIA [id number] [place], [place] [address]Kxexnnyso RBC (Bld) [#/Vol] 10*3/uLNormal<0.01[facility] on above:Order Comment: Specimen Type: BLOOD SPECIMENOrdering Facility: [facility] Address:[address] [place], [place] [address]Performed By: #### 48202-7 ####[facility] LABCLIA [id number] [place], [place] [address]Wyateyrkw RBC/100 WBC (Bld) [Ratio]0.0 /100 WBCNormal [facility] on above:Order Comment: Specimen Type: BLOOD SPECIMENOrdering Facility: [facility] Address:[address] [place], [place] [address]Performed By: #### 92444-4 ####[facility] LABCLIA [id number] [place], [place] [address]Qqulrfoo mean volume (Bld) [Entitic vol]9.7 fLNormal9.0-12.7CMadison Health on above:Order Comment: Specimen Type: BLOOD SPECIMENOrdering Facility: [facility] Address:[address] [place] [address] Performed By: #### 93835-0 ####[facility] LABCLIA [id number] [place], [place] [address]Nbsqhqozn (Bld) [#/Vol]260 10*3/gFUqanka817-446KrojosicaOhioHealth Grady Memorial Hospital on above:Order Comment: Specimen Type: BLOOD SPECIMENOrdering Facility: [facility] Address:[address] [place], [place] [address]Performed By: #### 02096-7 ####[facility] LABCLIA [id number] [place], [place] [address]QCA (Bld) [#/Vol]3.80 10*6/uLLow3.90-5.20[facility] on above:Order Comment: Specimen Type: BLOOD SPECIMENOrdering Facility: [facility] Address:[address] [place], [place] [address]Performed By: #### 45284-3 ####[facility] LABCLIA [id number] [place], [place] [address]EUY (Bld) [#/Vol]8.55 10*3/uL Normal3.70-11.00[facility] on above:Order Comment: Specimen Type: BLOOD SPECIMENOrdering Facility: [facility] Address:[address] [place], [place] [address]Lfznmcmmc By: #### 82238-9 ####[facility] LABCLIA [id number] [place], [place] [address]TIPDNZip [id number] (SP) Office ([place]) SANNA RENDON ([id number]) 1985 F Date Time Provider Department 12/23/24 11:30 AM KATHERINE NEGRETE During your visit today, we recorded the following information about you: Temperature Pulse Respiration Blood pressure 97.6 degrees 80/minute 16/minute 103/69 Weight Height 94.4 kg 1.677 m Katherine Negrete APRN.CNP 12/24/2024 9:07 PM Signed NAME: Sanna Rendon CLINIC NO.: [id number] DATE OF SERVICE: December 23, 2024 ([place]) [...] later in 2018. These were found in [place], [place]. I don't have access to these [...] a target-like rash shortly before presenting to [facility] in 2016 with headaches and was [...] vitamin D supplementat (more content not included)...Normal [facility] CenterComprehensive metabolic 2000 panelon 27-84-2789Ixxcyyl [Mass/Vol]4.1 g/dLNormal3.9-4.9CMadison Health on above:Order Comment: Specimen Type: BLOOD SPECIMENOrdering Facility: [facility] Address:[address], [place] [address]Dosfzyayc By: #### 52685- 8 ####[facility] LABCLIA [id number] [place], [place] [address]AGC [Catalytic activity/Vol]43 U/ORrtjqy54-053RqtakhhauOhioHealth Grady Memorial Hospital on above:Order Comment: Specimen Type: BLOOD SPECIMENOrdering Facility: [facility] Address:[address] [place], [place] [address]Performed By: #### 92526-7 ####[facility] LABCLIA [id number] [facility]ALSEHONOR[facility] RE[facility]IL[facility]ATION HOSPITALTEETEEBOONE, [place] [address]XVY [Catalytic activity/Vol]11 U/LNormal7-38[facility] on above:Order Comment: Specimen Type: BLOOD SPECIMENOrdering Facility: [facility] Address:[address] [place], [place] [address]Performed By: #### 01163- 8 ####[facility] LABCLIA [id number] [place], [place] [address]Ickar gap [Moles/Vol]12 mmol/LNormal8-15[facility] on above:Order Comment: Specimen Type: BLOOD SPECIMENOrdering Facility: [facility] Address:[address] [place], [place] [address]Performed By: #### 80028-8 ####[facility] LABCLIA [id number] [place], [place] [address]CYA [Catalytic activity/Vol]12 U/QLpk44-94EkxrewybrOhioHealth Grady Memorial Hospital on above:Order Comment: Specimen Type: BLOOD SPECIMENOrdering Facility: [facility] Address:[address] [place], [place] [address]Performed By: #### 13991-0 ####[facility] LABCLIA [id number] [place] [address] Bilirubin [Mass/Vol]0.2 mg/dLNormal0.2-1.3CMadison Health on above:Order Comment: Specimen Type: BLOOD SPECIMENOrdering Facility: [facility] Address:[address] [place], [place] [address]Performed By: #### 00976-2 ####[facility] LABCLIA [id number] [place], [place] [address]Oukbuwq [Mass/Vol]9.5 mg/dLNormal8.5-10.2CMadison Health on above:Order Comment: Specimen Type: BLOOD SPECIMENOrdering Facility: [facility] Address:[address] [place], [place] [address]Performed By: #### 95815-7 ####[facility] LABCLIA [id number] [place], [place] [address]Qtvkphbn [Moles/Vol]98 mmol/THbrdwl92-003QsnspejfjOhioHealth Grady Memorial Hospital on above:Order Comment: Specimen Type: BLOOD SPECIMENOrdering Facility: [facility] Address:[address] [place], [place] [address]Performed By: #### 37401- 8 ####[facility] LABCLIA [id number] [place], [place] [address]IX6 [Moles/Vol]20 mmol/YGog75-77UqeavxqwfOhioHealth Grady Memorial Hospital on above:Order Comment: Specimen Type: BLOOD SPECIMENOrdering Facility: [facility] Address:[address] [place], [place] [address]Performed By: #### 93206-9 ####[facility] LABCLIA [id number] [place], [place] [address]Skjneuoejz [Mass/Vol]0.54 mg/dL Low0.58-0.96[facility] on above:Order Comment: Specimen Type: BLOOD SPECIMENOrdering Facility: [facility] Address:[address] [place], [place] [address]Performed By: #### 76366-0 ####[facility] LABIA [id number] [place] [address] eGFRcr SerPlBld CKD-EPI 2028482 mL/min/1.73m???Normal>=60[facility] on above:Order Comment: Specimen Type: BLOOD SPECIMENOrdering Facility: [facility] Address:[address] [place], [place] [address]Result Comment: Estimated Glomerular Filtration Rate (eGFR) is [...] accurately reflect actual GFR. Performed By: #### 21066-5 ####[facility] LABCLIA [id number] [place], [place] [address]Jwtlfsr [Mass/Vol]104 mg/dLHigh 74-99[facility] on above:Order Comment: Specimen Type: BLOOD SPECIMENOrdering Facility: [facility] Address:[address] [place], [place] [address]Mvvzdw Comment: The [place] [employer] (ADA) provides guidance for cutoff [...] Standards of Medical Care in Diabetes 2016, [place] [employer]. Diabetes Care. 2016.39(Suppl 1).Performed By: #### 20366-4 ####[facility] LABCLIA [id number] [place], [place] [address]Rwwfldjmh [Moles/Vol]4.0 mmol/LNormal3.7-5.1CMadison Health on above:Order Comment: Specimen Type: BLOOD SPECIMENOrdering Facility: [facility] Address:[address] [place], [place] [address]Riytakcrv By: #### 65024-2 ####[facility] LABCLIA [id number] [place], [place] [address]Whgzpmv [Mass/Vol]6.7 g/dLNormal6.3-8.0[facility] on above:Order Comment: Specimen Type: BLOOD SPECIMENOrdering Facility: [facility] Address:[address] [place], [place] [address]Performed By: #### 27064- 8 ####[facility] LABCLIA [id number] [place], [place] [address]Olqlnj [Moles/Vol]130 mmol/VYgr773-772JlttsxqymOhioHealth Grady Memorial Hospital on above:Order Comment: Specimen Type: BLOOD SPECIMENOrdering Facility: [facility] Address:[address] [place], [place] [address]Performed By: #### 85462-7 ####[facility] LABCLIA [id number] [place], [place] [address]Udxo nitrogen [Mass/Vol]7 mg/dL Normal7-21[facility] on above:Order Comment: Specimen Type: BLOOD SPECIMENOrdering Facility: [facility] Address:[address] [place], [place] [address]Performed By: #### 11797-9 ####[facility] LABCLIA [id number] [place] [address] Ferritin SerPl-mCncon 76-59-3205Qyqciigt [Mass/Vol]43.5 ng/uVAixxqw45.7-205.1 [facility] on above:Order Comment: Specimen Type: BLOOD SPECIMENOrdering Facility: [facility] Address:[address] [place], [place] [address]Performed By: #### 96044-9, 2276-4, 2132-9 ####[facility] LABCLIA [id number] [place] [address] [facility] OF AMERICAIron and Iron binding capacity panelon 12-23-2024 Iron [Mass/Vol]80 ug/hRHnclbi57-656FtfuvzjfaOhioHealth Grady Memorial Hospital on above: Order Comment: Specimen Type: BLOOD SPECIMENOrdering Facility: [facility] Address:[address] [place], [place] [address]Performed By: #### 74264- 8, 2275-07, 2131-12 ####[facility] LABCLIA [id number] [place] [address] [place] AMERICAIron binding capacity [Mass/Vol]437 ug/yOYsjo170-256QmskjsfykOhioHealth Grady Memorial Hospital on above:Order Comment: Specimen Type: BLOOD SPECIMENOrdering Facility: [facility] Address:[address] [place], [place] [address]Performed By: #### 74076- 8, 2275-07, 2131-12 ####[facility] LABIA [id number] [place] [address] [place] AMERICAIron/TIBC [Molar ratio]18.3 %Bqrlzg73.0-57.0[facility] on above:Order Comment: Specimen Type: BLOOD SPECIMENOrdering Facility: [facility] Address:[address] [place], [place] [address]Performed By: #### 60373- 8, 2275-07, 2131-12 ####[facility] LABIA [id number] [place] [address] [place] AMERICAVit B12 SerPl-ncon 53-99-0602Cejyyogoy (Vitamin B12) [Mass/Vol]328 pg/iFIehnce064-2381DalkatsfbMadison Health on above:Order Comment: Specimen Type: BLOOD SPECIMENOrdering Facility: [facility] Address:[address] [place], [place] [address]Performed By: #### 02746-1, 2275-07, 2131-12 ####[facility] CENTERIA [id number] [place] [address] [place] AMERICATBH UA (CLEAN/CATCH) CAR TRIMMER/MICRO IF IND.on 20-42-6277JXAIOKMWB URINENegativeNEGATIVENOMS HealthcareBLOOD URINENegative NEGATIVENOMS HealthcareClarity (U)CLEARCLEARNOMS HealthcareColor (U)LT. YELLOW YELLOWNOTN HealthcareGLUCOSE URINE UANegativeNEGATIVE mg/dLNOTN Healthcare Interpretation and review of laboratory resultsAbnormalNOMS HealthcareKetones Ql (U)NegativeNEGATIVE mg/dLNOTN HealthcareLeukocyte esterase Test strip Ql (U) SMALLAbnormalNEGATIVENOMS HealthcareNITRITE URINENegativeNEGATIVENOMS Healthcare pH (U)6.0 [pH]5.0 - 9.0NOMS HealthcarePROTEIN URINENegativeNEG/TRACE mg/dLNOMS HealthcareSPECIFIC GRAVITY URINE<=1.377Ueiuzjef5.005 - 1.025NOTN HealthcareURINE MICROSCOPIC INDICATEDYESNOTN HealthcareUROBILINOGEN URINE0.2 EU/dL0.2 - 1.0 EU/dLNOTN HealthcareCLINISYNCNOMS HealthcareUS OB CERVICAL LENGTHon 12-16-2024 [place] [address] Ultrasound Report Signed Patient: SANNA RENDON MR#: [id number] : 1985 Acct:[id number] Age/Sex: 39 / F ADM Date: Loc: [facility] 251-[address]: Wilton Herrmann D.O. Ordering Physician: Wilton Herrmann D.O. Date of Service: 12/16/24 Procedure(s): US OB cervical length Accession Number(s): [id number] cc: Wilton Herrmann D.O.; PENELOPE CASAS [place] [id number] Patient Name: SANNA RENDON MRN: [id number] date: 1985 Sex: F Assigned Patient Location: [facility] Current Patient Location: Accession/Order Number: [id number] Exam Date: 12/16/2024 20:39 Report Date: 12/16/2024 [...] Beltrán M.D. 12/16/2024 8:41 PM Dictation Location: [place] [address] Electronically authenticated by: [id number] Y Date: 12/16/2024 20:41 Dictated By: Robert Beltrán D.O. Signed By: 12/16/242042 DD/ 40 TD/TT: Staff Mechanical Engineer:MANUELHRadiology, Radiologist, - 12/16/2024 [place] [address] Ultrasound Report Signed Patient: SANNA RENDON MR#: [id number] : 1985 Acct:[id number] Age/Sex: 39 / F ADM Date: Loc: [facility] 251-[address]: Wilton Herrmann D.O. Ordering Physician: Wilton Herrmann D.O. Date of Service: 12/16/24 Procedure(s): US OB cervical length Accession Number(s): [id number] cc: Wilton Herrmann D.O.; P[place]EL[place] [address] Patient Name: SANNA RENDON MRN: [facility]:[id number] date: 1985 Sex: F Assigned Patient Location: [facility] Current Patient Location: Accession/Order Number: [id number] Exam Date: 12/16/2024 20:39 Report Date: 12/16/2024 [...] Beltrán M.D. 12/16/2024 8:41 PM Dictation Location: [facility] Electronically authenticated by: [id number] Y Date: 12/16/2024 20:41 Dictated By: Robert Beltrán D.O. Signed By: 12/16/242042 DD/ 40 TD/TT: Staff Mechanical Engineer: [facility] HealthcareRadiology Study observation (narrative)NOMS HealthcareUS OB CERVICAL LENGTHOrdered By: Radiologist Radiology on 79-70-3645[facility] Work Phone: aLL THYROID STIM HORMONEon 86-11-1463BOZ Qn1.508 m[IU]/LNOMS HealthcareCLINISYNCNOMS HealthcareUrinalysis macro (dipstick) panel (U)on 39-81-3880Akaohlnam, UANegativeNegative - 4(70) +++ mg/dLNOMS Healthcare Blood, UANegativeNegative - 50 Max/mcLNOMS HealthcareClarity, UAClearNOMS HealthcareColor, UAYellowNOMS HealthcareGlucose, UANegativeNegative - 2000(110) ++++ mg/dLNOMS HealthcareInterpretation and review of laboratory resultsNormal NOM HealthcareKetones, UANegativeNegative - 160(16) ++++ mg/dLNOMS Healthcare Leukocytes, UANegativeNegative - 500+++ John/mcLNOMS HealthcareNitrite, UA NegativeNegative - PositiveNOMS HealthcarepH, UA65 - 9NOMS HealthcareProtein, UA NegativeNegative - 2000(20) ++++ mg/dLNOMS HealthcareSpec Grav, UA1.011 - 1.03 NOMS HealthcareUrobilinogen, UA1.00.2 - 12 mg/dLNOMS HealthcareNOTN Healthcare Urinalysis macro (dipstick) panel (U)on 07-47-8353Rfvqijurs, UANegativeNegative - 4(70) +++ mg/dLNOMS HealthcareBlood, UANegativeNegative [...] 12 mg/dLNOMS HealthcareNOMS HealthcareGlucose random or fasting- [facility] 11-19-2024 External Glucose Fasting Or Random (Fbs)94[facility] HospitalUrinalysis macro (dipstick) panel (U)on 79-82-0253Epminunja, UA NegativeNegative - 4(70) +++ mg/dLNOMS HealthcareBlood, UANegativeNegative - 50 Max/mcLNOMS HealthcareClarity, UAClearNOMS HealthcareColor, UAYellowNOMS HealthcareGlucose, UANegativeNegative - 1999(110) ++++ mg/dLNOMS Healthcare Interpretation and review of laboratory resultsNormalNOMS HealthcareKetones, UA NegativeNegative - 160(16) ++++ mg/dLNOMS HealthcareLeukocytes, UANegative Negative - 500+++ John/mcLNOMS HealthcareNitrite, UANegativeNegative - Positive NOMS HealthcarepH, UA75 - 9NOMS HealthcareProtein, UANegativeNegative - 1999(20) ++++ mg/dLNOMS HealthcareSpec Grav, UA1.011 - 1.03NOMS HealthcareUrobilinogen, UA0.20.2 - 12 mg/dLNOMS HealthcareNOMS Gacvcuxbzz33([place])D3 [facility] 13-38-551287240067-ecqenczatgsijy D3 [Mass/Vol]32.1 ng/gGFmoyhr59.0-80.0[facility] CenterComhurley medical center on above:Order Comment: Specimen Type: BLOOD SPECIMENOrdering Facility: [facility] Address:[address] [place], [place] [address]Result Comment: Classification of 25 [place] Vitamin D status: Deficiency/Insufficiency: < or = 30 ng/ml. Sufficiency/Optimal Levels: 31-80 ng/mL Toxicity: > 100 ng/mL. Test performed by chemiluminescent immunoassay.Performed By: #### 1989-3 ####[facility] LABCLIA [id number] [facility] [id number] [place] [address] W Auto Differential panel (Bld)on 37-42-5700Nucdevymr (Bld) [#/Vol]0.03 10*3/uLNormal<0.11CMadison Health on above:Order Comment: Specimen Type: BLOOD SPECIMENOrdering Facility: [facility] Address:[address] [place], [place] [address]Performed By: #### 41654-7 ####[facility] LABCLIA [id number] [place], [place] [address]Xynyaqrra/100 WBC (Bld)0.3 % NormalOhioHealth Grady Memorial Hospital on above:Order Comment: Specimen Type: BLOOD SPECIMENOrdering Facility: [facility] Address:[address] [place], [place] [address]Performed By: #### 30803-3 ####[facility] LABCLIA [id number] [place] [address] Differential cell count method Nom (Bld)AutoNormalClevelColumbus Regional Healthcare System Comment on above:Order Comment: Specimen Type: BLOOD SPECIMENOrdering Facility: [facility] Address:[address] [place] [address] Performed By: #### 43049-9 ####[facility] LABCLIA [id number] [place], [place] [address]Olzpwfpmvtg (Bld) [#/Vol]0.05 10*3/uLNormal<0.46[facility] on above:Order Comment: Specimen Type: BLOOD SPECIMENOrdering Facility: [facility] Address:[address] [place], [place] [address]Performed By: #### 99819-8 ####[facility] LABCLIA [id number] [place], [place] [address]Eywukknrjsh/100 WBC (Bld)0.5 %NormalOhioHealth Grady Memorial Hospital on above:Order Comment: Specimen Type: BLOOD SPECIMENOrdering Facility: [facility] Address:[address] [place], [place] [address]Performed By: #### 95931-7 ####[facility] LABCLIA [id number] [place], [place] [address]Ipqntywlnbo distribution width (RBC) [Ratio]14.5 %Upqfso55.5-15.0[facility] on above: Order Comment: Specimen Type: BLOOD SPECIMENOrdering Facility: [facility] Address:[address] [place], [place] [address]Performed By: #### 17511- 8 ####[facility] LABIA [id number] [place], [place] [address]Iladmaaorp (Bld) [Volume fraction]36.9 %Otthmh26.0-46.0 [facility] on above:Order Comment: Specimen Type: BLOOD SPECIMENOrdering Facility: [facility] Address:[address] [place], [place] [address]Performed By: #### 08643-1 ####[facility] LABIA [id number] [place], [place] [address]Eizihklifb (Bld) [Mass/Vol]13.0 g/hECidffm74.5-15.5CMadison Health on above: Order Comment: Specimen Type: BLOOD SPECIMENOrdering Facility: [facility] Address:[address] [place], [place] [address]Performed By: #### 78657- 8 ####[facility] LABIA [id number] [place], [place] [address]Ioswccyz granulocytes (Bld) [#/Vol]10*3/uLNormal<0.10 [facility] on above:Order Comment: Specimen Type: BLOOD SPECIMENOrdering Facility: [facility] Address:[address] [place], [place] [address]Performed By: #### 63589-7 ####[facility] LABCLIA [id number] [place], [place] [address]Mmkahpix granulocytes/100 WBC (Bld)0.2 %NormalOhioHealth Grady Memorial Hospital on above: Order Comment: Specimen Type: BLOOD SPECIMENOrdering Facility: [facility] Address:[address] [place], [place] [address]Performed By: #### 64984- 8 ####[facility] LABCLIA [id number] [place], [place] [address]Kgntsxpobay (Bld) [#/Vol]2.50 10*3/uLNormal1.00-4.00 [facility] on above:Order Comment: Specimen Type: BLOOD SPECIMENOrdering Facility: [facility] Address:[address] [place], [place] [address]Performed By: #### 20691-3 ####[facility] LABIA [id number] [place], [place] [address]Mehleinhpbi/100 WBC (Bld)26.3 %NormalOhioHealth Grady Memorial Hospital on above:Order Comment: Specimen Type: BLOOD SPECIMENOrdering Facility: [facility] Address:[address] [place], [place] [address]Performed By: #### 47478-8 ####[facility] LABIA [id number] [place], [place] [address]WMG (RBC) [Entitic mass]30.6 ewPjefsz94.0-34.0[facility] on above:Order Comment: Specimen Type: BLOOD SPECIMENOrdering Facility: [facility] Address:[address] [place], [place] [address]Performed By: #### 27272-4 ####[facility] LABCLIA [id number] [place], [place] [address]UUVC (RBC) [Mass/Vol]35.2 g/cVYyoish88.5-36.0[facility] on above: Order Comment: Specimen Type: BLOOD SPECIMENOrdering Facility: [facility] Address:[address] [place], [place] [address]Performed By: #### 85837- 8 ####[facility] LABCLIA [id number] [place], [place] [address]QQS (RBC) [Entitic vol]86.8 eYItwkno59.0-100.0[facility] on above:Order Comment: Specimen Type: BLOOD SPECIMENOrdering Facility: [facility] Address:[address] [place], [place] [address]Performed By: #### 05260-3 ####[facility] LABIA [id number] [place], [place] [address]Hkhoidgty (Bld) [#/Vol]0.44 10*3/uLNormal<0.87[facility] on above:Order Comment: Specimen Type: BLOOD SPECIMENOrdering Facility: [facility] Address:[address] [place], [place] [address]Performed By: #### 33166- 8 ####[facility] LABCLIA [id number] [place], [place] [address]Jqswrjzlu/100 WBC (Bld)4.6 %NormalOhioHealth Grady Memorial Hospital on above:Order Comment: Specimen Type: BLOOD SPECIMENOrdering Facility: [facility] Address:[address] [place], [place] [address]Performed By: #### 93332-1 ####[facility] LABCLIA [id number] [place], [place] [address]Hthkiynjqrv (Bld) [#/Vol]6.48 10*3/uLNormal1.45-7.50[facility] on above:Order Comment: Specimen Type: BLOOD SPECIMENOrdering Facility: [facility] Address:[address] [place], [place] [address]Performed By: #### 34393-1 ####[facility] LABCLIA [id number] [place], [place] [address]Xdcjfcmgwjy/100 WBC (Bld)68.1 %NormalOhioHealth Grady Memorial Hospital on above:Order Comment: Specimen Type: BLOOD SPECIMENOrdering Facility: [facility] Address:[address] [place], [place] [address]Performed By: #### 23302-8 ####[facility] LABCLIA [id number] [place], [place] [address]Uwpamzpwo RBC (Bld) [#/Vol] 10*3/uLNormal<0.01[facility] on above:Order Comment: Specimen Type: BLOOD SPECIMENOrdering Facility: [facility] Address:[address] [place], [place] [address]Performed By: #### 58615-8 ####[facility] LABCLIA [id number] [place], [place] [address]Cdsvfsbqf RBC/100 WBC (Bld) [Ratio]0.0 /100 WBCNormal [facility] on above:Order Comment: Specimen Type: BLOOD SPECIMENOrdering Facility: [facility] Address:[address] [place], [place] [address]Performed By: #### 45542-2 ####[facility] LABIA [id number] [place], [place] [address]Lobnpizk mean volume (Bld) [Entitic vol]9.8 fLNormal9.0-12.7CMadison Health on above:Order Comment: Specimen Type: BLOOD SPECIMENOrdering Facility: [facility] Address:[address] [place] [address] Performed By: #### 63977-0 ####[facility] LABCLIA [id number] [place], [place] [address]Jvnzhereu (Bld) [#/Vol]327 10*3/eQHmtbow390-977BlzuzivpuOhioHealth Grady Memorial Hospital on above:Order Comment: Specimen Type: BLOOD SPECIMENOrdering Facility: [facility] Address:[address] [place], [place] [address]Performed By: #### 53684-1 ####[facility] LABCLIA [id number] [place], [place] [address]HHT (Bld) [#/Vol]4.25 10*6/uLNormal3.90-5.20[facility] on above:Order Comment: Specimen Type: BLOOD SPECIMENOrdering Facility: [facility] Address:[address] [place], [place] [address]Performed By: #### 86619-7 ####[facility] LABIA [id number] [place], [place] [address]CQF (Bld) [#/Vol]9.52 10*3/uLNormal3.70-11.00[facility] on above: Order Comment: Specimen Type: BLOOD SPECIMENOrdering Facility: [facility] Address:[address] [place], [place] [address]Performed By: #### 26819- 8 ####[facility] LABIA [id number] [place], [place] [address]MBSGUNae 16-07-5493QSBYXQRsyna (SP) Office (HEMASA) SANNA RENDON ([id number]) 1985 F Date Time Provider Department 10/28/24 2:30 PM KATHERINE NEGRETE During your visit today, we recorded the following information about you: Temperature Pulse Respiration Blood pressure 97 degrees 82/minute 16/minute 122/77 Weight Last Period 94.1 kg 10/28/24 Katherine Negrete APRN.CNP 10/29/2024 9:44 PM Signed NAME: Sanna Rendon CLINIC NO.: [id number] DATE OF SERVICE: October 28, 2024 (Penelope) [...] later in 2018. These were found in [place], [place]. I don't have access to these [...] a target-like rash shortly before presenting to [facility] in 2016 with headaches and was [...] negative. 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 She denies further [...] 05/28/2024 Encounter Status:Closed by RACHAEL JOHNSON on 11/05/24NormalCOhioHealth Van Wert Hospitalprehensive metabolic 2000 panelon 84-76-4504Ihpssjh [Mass/Vol]4.4 g/dLNormal3.9-4.9CMadison Health on above:Order Comment: Specimen Type: BLOOD SPECIMENOrdering Facility: [facility] Address:[address] [place], [place] [address]Performed By: #### 06577-5 ####[facility] LABCLIA [id number] [place], [place] [address]YRC [Catalytic activity/Vol]55 U/MHqspjm90-451IzgcrqlatOhioHealth Grady Memorial Hospital on above:Order Comment: Specimen Type: BLOOD SPECIMENOrdering Facility: [facility] Address:[address] [place], [place] [address]Performed By: #### 60257-8 ####[facility] LABCLIA [id number] [place], [place] [address]TPM [Catalytic activity/Vol]18 U/LNormal7-38[facility] on above:Order Comment: Specimen Type: BLOOD SPECIMENOrdering Facility: [facility] Address:[address] [place], [place] [address]Performed By: #### 49245- 8 ####[facility] LABCLIA [id number] [place], [place] [address]Prafk gap [Moles/Vol]12 mmol/LNormal8-15[facility] on above:Order Comment: Specimen Type: BLOOD SPECIMENOrdering Facility: [facility] Address:[address] [place], [place] [address]Performed By: #### 34089-8 ####[facility] LABCLIA [id number] [place], [place] [address]GAV [Catalytic activity/Vol]13 U/KLgglul23-19ZaajfjroyOhioHealth Grady Memorial Hospital on above:Order Comment: Specimen Type: BLOOD SPECIMENOrdering Facility: [facility] Address:[address] [place], [place] [address]Performed By: #### 37901-0 ####[facility] LABCLIA [id number] [place] [address] Bilirubin [Mass/Vol]0.2 mg/dLNormal0.2-1.3CMadison Health on above:Order Comment: Specimen Type: BLOOD SPECIMENOrdering Facility: [facility] Address:[address] [place], [place] [address]Performed By: #### 17858-8 ####[facility] LABCLIA [id number] [facility] [place], [place] [address]Ohufbye [Mass/Vol]9.9 mg/dLNormal8.5-10.2CMadison Health on above:Order Comment: Specimen Type: BLOOD SPECIMENOrdering Facility: [facility] Address:[address] [place], [place] [address]Performed By: #### 04602-5 ####[facility] LABCLIA [id number] [place], [place] [address]Yjnxcldu [Moles/Vol]99 mmol/YAqbqgn09-082JbttgyvngOhioHealth Grady Memorial Hospital on above:Order Comment: Specimen Type: BLOOD SPECIMENOrdering Facility: [facility] Address:[address] [place], [place] [address]Performed By: #### 02674- 8 ####[facility] LABCLIA [id number] [place], [place] [address]SI7 [Moles/Vol]22 mmol/WWatzvh43-69CnzslgiyeOhioHealth Grady Memorial Hospital on above:Order Comment: Specimen Type: BLOOD SPECIMENOrdering Facility: [facility] Address:[address] [place], [place] [address]Performed By: #### 15419-1 ####[facility] LABCLIA [id number] [place], [place] [address]Yeegxcyixg [Mass/Vol]0.60 mg/dL Normal0.58-0.96[facility] on above:Order Comment: Specimen Type: BLOOD SPECIMENOrdering Facility: [facility] Address:[address] [place], [place] [address]Performed By: #### 21624-5 ####[facility] LABCLIA [id number] [place], [place] [address]Apmgtczsss and Glomerular filtration rate.predicted panel (S/P/Bld)117 mL/min/1.73m???Normal>=60[facility] on above:Order Comment: Specimen Type: BLOOD SPECIMENOrdering Facility: [facility] Address:[address] [place], [place] [address]Result Comment: Estimated Glomerular Filtration Rate (eGFR) is [...] not accurately reflect actual GFR.Performed By: #### 55707-3 ####[facility] LABCLIA [id number] [place], [place] [address]Jnmojmg [Mass/Vol]101 mg/dXLwbn28-93FfkzoeaoeOhioHealth Grady Memorial Hospital on above:Order Comment: Specimen Type: BLOOD SPECIMENOrdering Facility: [facility] Address:[address] [place] [address]Ycabyo Comment: The [place] Diabetes Association (ADA) provides guidance for cutoff [...] Standards of Medical Care in Diabetes 2016, [place] [employer] Association. Diabetes Care. 2016.39(Suppl 1).Performed By: #### 80736-0 ####[facility] LABCLIA [id number] [place], [place] [address]Pbrthppua [Moles/Vol]3.5 mmol/LLow3.7-5.1CMadison Health on above:Order Comment: Specimen Type: BLOOD SPECIMENOrdering Facility: [facility] Address:[address] [place], [place] [address]Performed By: #### 30210-0 ####[facility] LABCLIA [id number] [place], [place] [address]Pvuvcbz [Mass/Vol]7.6 g/dL Normal6.3-8.0[facility] on above:Order Comment: Specimen Type: BLOOD SPECIMENOrdering Facility: [facility] Address:[address] [place], [place] [address]Performed By: #### 29810-6 ####[facility] LABCLIA [id number] [place] [address] Sodium [Moles/Vol]133 mmol/ECem266-368HxqjoglamOhioHealth Grady Memorial Hospital on above:Order Comment: Specimen Type: BLOOD SPECIMENOrdering Facility: [facility] Address:[address] [place], [place] [address]Performed By: #### 27279-6 ####[facility] LABCLIA [id number] [place], [place] [address]Erwf nitrogen [Mass/Vol]7 mg/dLNormal7-21Diley Ridge Medical CenterComment on above:Order Comment: Specimen Type: BLOOD SPECIMENOrdering Facility: [facility] Address:[address] [place], [place] [address]Performed By: #### 74317-5 ####[facility] LABCLIA [id number] [place], [place] [address]Nuqmxsnx SerPl-mCoron 50-60-3986Lzmzwves [Mass/Vol]99.6 ng/pTIgmdcx19.7-205.1CMadison Health on above:Order Comment: Specimen Type: BLOOD SPECIMENOrdering Facility: [facility] Address:[address] [place], [place] [address]Performed By: #### 2276-4, 71734-7, 2131-12, 6-3 ####[facility] LABCLIA [id number] [place] [address] [place] AMERICAIron and Iron binding capacity panelon 64-92-8833Afxn [Mass/Vol]72 ug/pUCtliqk35-576JwwwrrzljDiley Ridge Medical Center Comment on above:Order Comment: Specimen Type: BLOOD SPECIMENOrdering Facility: [facility] Address:[address] [place] [address] Performed By: #### 2276-4, 11095-2, 2131-12, 6-3 ####[facility] LABCLIA [id number] [place] [address] [place] AMERICAIron binding capacity [Mass/Vol]399 ug/hNCcls115-060JtvfjlcewDiley Ridge Medical CenterComhurley medical center on above:Order Comment: Specimen Type: BLOOD SPECIMENOrdering Facility: [facility] Address:[address] [place], [place] [address]Performed By: #### 2276-4, 18429-1, 2131-12, 3016-3 ####[facility] LABCLIA [id number] [place] [address] [place] AMERICAIron/TIBC [Molar ratio]18.0 % Hfqdda32.0-57.0[facility] on above:Order Comment: Specimen Type: BLOOD SPECIMENOrdering Facility: [facility] Address:[address] [place], [place] [address]Performed By: #### 2276-4, 63575-2, 9, 6-3 ####[facility] LABCLIA [id number] [place] [id number] [place] AMERICATSHon 10-28-2024 Thyroid Stimulating (3Rd Generation) Hormone/ Tsh1.25[facility] SerPl-aCncon 53-24-4230IGP Qn1.250 m[IU]/LNormal 0.270-4.200[facility] on above:Order Comment: Specimen Type: BLOOD SPECIMENOrdering Facility: [facility] Address:[address] [place], [place] [address]Result Comment: If the patient is , TSH reference range varies by gestational period: First Trimester (weeks 9-12): 0.180-2.990 mIU/L Second Trimester: 0.110-3.980 mIU/L Third Trimester: 0.480-4.710 mIU/L Danny Varela et al. A Practical Approach for the Verifications and Determination of Site- and Trimester-Specific Reference Intervals for Thyroid Function tests in . Thyroid, 2019:29:3:412-420.Saeed E, et al. 2017 Guidelines of the [place] Thyroid Association for the Diagnosis and Management of Thyroid Disease during and the . Thyroid, 2017:27:3:315-389. Performed By: #### 2276-4, 19798-9, 9, 3015-3 ####[facility] LABIA [id number] [place] [id number] [place] AMERICAVit B12 SerPl-mCncon 57-70-7080Sedzrdeba (Vitamin B12) [Mass/Vol]483 pg/eTKlipoh639-5111CeulxpayzMadison Health on above: Order Comment: Specimen Type: BLOOD SPECIMENOrdering Facility: [facility] Address:[address] [id number] By: #### 2276- 4, 62897-0, 2132-9, 3016-3 ####[facility] LABCLIA [id number] [facility] [place] [address] [place] [facility] SOUTHCNPNon 33-54-0696LJTAPuyzzbybn (HEMASA) SANNA RENDON ([id number]) 1985 F Date Time Provider Department 10/24/24 [...] Date Reviewed: 08/26/2024 Reviewed by: Katherine Negrete APRN.[employer] MOLDER - Fully Assessed Reason for Visit: Lab [...] 05/28/2024 Encounter Status:Closed by KAUR DUNHAM on 10/24/24[facility] OB TRANSVAGINALon 13-82-4838NE OB TRANSVAGINALEXAM: US OB TRANSVAGINAL HISTORY: Viability, [...] II, MD, PHD at 21-Oct-2024 08:31:21 AM [facility]eleradiologyNormalNot AvailableComment on above:Order Comment: US OB VIABILITY PLEASE PERFORM TRANSVAGINAL ULTRASOUND IF INDICATED No LMP recorded.ALL CBC WITH AUTO DIFFon [id number] ABSOLUTE ELVG1SQSG HealthcareBasophils/100 WBC (Bld)0.2 %0.2 - 2.0 %NOMS [...] HealthcareLymphocytes/100 WBC (Bld)29.1 %20.5 - 60.0 %NOMS [facility] (RBC) [Entitic mass]29.9 pg26.7 - 34.0 pgNOSaint John's Health SystemMCHC (RBC) [Mass/Vol] 34.6 g/dL29.9 - 35.2 g/dLNOSaint John's Health SystemMCV (RBC) [Entitic vol]86.2 fL81.0 - 99.0 fLNOTN HealthcareMONOCYTES ABSOLUTE AUTO0.6NOMS HealthcareMonocytes/100 WBC (Bld)7.2 %1.7 - 12.0 %NOMS HealthcareNEUTROPHILS ABSOLUTE AUTO5.6NOMS Healthcare Neutrophils/100 WBC (Bld)62.8 %43.0 - 75.0 %NOMS HealthcarePlatelet mean volume (Bld) [Entitic vol]10.1 fL9.5 - 13.5 fLNOMS HealthcareTBH EO #0[facility] TBH [id number] HealthcareTBH RBC4.42NOMS HealthcareTBH WBC8.9NOTN Healthcare CLINISYNCDrug Screen, Urineon 28-80-7827Plhqfocmlzp/MethamphetamineNegative [facility] SystemBarbituratesNegativeProMedica Health System BenzodiazepinesNegativeProMedica Health SystemCocaine MetaboliteNegative [facility] SystemEcstasyNegativeProMedica Health SystemMethadoneNegative [facility] Hospitaledica Health SystemOpiatesNegativeNortheastern Vermont Regional HospitalMedica Health SystemOxycodoneNegative [facility] Hospitaledica [facility] SystemPhencyclidineNegativeNortheastern [facility] Regional HospitalMedica [facility] SystemThc Marijuana, UrineNegativeFirelands Regional Medical Centerca [facility] SystemHBV surface Ag IA Qlon 10-06-2024 Hepatitis B Surface AntigenNegativeZanesville City Hospital SystemHIV 1+2 Ab+HIV1 p24 Ag IA Qlon 26-77-1883TSD 1&2 AB/AGNegativeZanesville City Hospital SystemHemoglobin A1con 04-57-9929YvQ6k (Bld) [Mass fraction]5.9 %4.0 - 6.0 %[facility] SystemNo Panel Informationon 10-02-5077CEKV HealthcareTSHon 34-27-0342Kztgker Stimulating (3Rd Generation) Hormone/ Tsh1.131[facility] SystemType and screenon 18-40-4458Llx/Rh(D)NegativeZanesville City Hospital SystemHCG ( test) Ql (U)on 98-35-9780Prnjhtgsahfwby and review of laboratory resultsAbnormalNOTN Healthcare Preg Test, UrPositiveNegativeNOSaint John's Health SystemNOTN HealthcareUrinalysis macro (dipstick) panel (U)on 39-42-1429Txpsvrpgi, UANegativeNegative - 4(70) +++ mg/dL NOMS HealthcareBlood, UANegativeNegative - 50 Max/mcLNOMS HealthcareClarity, UA ClearNOMS HealthcareColor, UAYellowNOMS HealthcareGlucose, UANegativeNegative - 2000(110) ++++ mg/dLNOTN HealthcareInterpretation and review of laboratory resultsNormalNOMS HealthcareKetones, UANegativeNegative - 160(16) ++++ mg/dLNOMS HealthcareLeukocytes, UANegativeNegative - 500+++ John/mcLNOMS HealthcareNitrite, UANegativeNegative - PositiveNOMS HealthcarepH, UA65 - 9NOMS HealthcareProtein, UANegativeNegative - 2000(20) ++++ mg/dLNOMS HealthcareSpec Grav, UA1.0251 - 1.03NOMS HealthcareUrobilinogen, UA0.20.2 - 12 mg/dLNOMS HealthcareNOMS HealthcareUS OB TRANSVAGINALon 65-59-2645[place] [address] Ultrasound Report Signed Patient: SANNA RENDON MR#: [id number] : 1985 Acct:[id number] Age/Sex: 38 / F ADM Date: 09/11/24 Loc: US Attending Dr: Wilton Herrmann D.O. Ordering Physician: Wilton Herrmann D.O. Date of Service: 09/11/24 Procedure(s): US OB transvaginal Accession Number(s): [id number] cc: Wilton Herrmann D.O.; PENELOPE CASAS [place] [id number] Patient Name: SANNA RENDON MRN: [id number] date: 1985 Sex: F Assigned Patient Location: US Current Patient Location: US Accession/Order Number: [id number] Exam Date: 09/11/2024 11:34 Report Date: 09/11/2024 [...] Montano M.D. 09/11/2024 11:36 AM Dictation Location: [place] [address] Electronically authenticated by: [id number] Y Date: 09/11/2024 11:36 Dictated By: Prudence Montano M.D. Signed By: 09/11/24 1138 DD/ 1136 TD/TT: Staff Mechanical Engineer:TBHRadiology, Radiologist, - 09/11/2024 [place] [address] Ultrasound Report Signed Patient: SANNA RENDON MR#: [id number] : 1985 Acct:[id number] Age/Sex: 38 / F ADM Date: 09/11/24 Loc: US Attending Dr: Wilton Herrmann D.O. Ordering Physician: Wilton Herrmann D.O. Date of Service: 09/11/24 Procedure(s): US OB transvaginal Accession Number(s): [id number] cc: Wilton Herrmann D.O.; PENELOPE CASAS [place] [address] Patient Name: SANNA RENDON MRN: [id number] date: 1985 Sex: F Assigned Patient Location: US Current Patient Location: US Accession/Order Number: [id number] Exam Date: 09/11/2024 11:34 Report Date: 09/11/2024 [...] Montano M.D. 09/11/2024 11:36 AM Dictation Location: [facility] Electronically authenticated by: [id number] Y Date: 09/11/2024 11:36 Dictated By: Prudence Montano M.D. Signed By: 09/11/24 1138 DD/ 1136 TD/TT: Staff Mechanical Engineer: [facility] HealthcareRadiology Study observation (narrative)[facility] OB TRANSVAGINALOrdered By: Radiologist Radiology on 39-98-0262VHUZ Healthcare Work Phone: bhcg Quanton 67-96-4973DGY.beta subunit Yf08760 m[IU]/mLHigh1-3[facility] Medical CenterComment on above:Result Comment: 'F NON < 1 - 3' ' 0.2 - 1 WEEK = 5 TO 50' ' 1 - 2 WEEKS = 50 - 500' ' 2 - 3 WEEKS = 100 - 5000' ' 3 - 4 WEEKS = 500 - 10687' ' 4 - 5 WEEKS = 1000 - 03058' ' 5 - 6 WEEKS = 39145 - 733802' ' 6 - 8 WEEKS = 24894 - 533642' ' 8 - 12 WEEKS = 52643 - 713337'Performed By: #### [id number] #### [facility] [address], [place] [address]Tsqtzevxbk Visit Summaryon 24-90-7739Vgrdbkovse Visit Summary Ambulatory Visit Summary SANNA RENDON :1985 Visit Date:09/07/2024 Ambulatory Visit Instructions Your Diagnosis Viral URI with cough Cough Your Care Team Attending Physician - Romulo Chiu PA-C Primary Care Physician - Penelope CASAS DO, FAAFP This Is Your Medications List Contact prescribing physician if questions or concerns enoxaparin (Lovenox 40 mg/0.4 mL Injection) ergocalciferol (Vitamin D) fluticasone nasal (Flonase 0.05 mg/inh Lomax) levothyroxine (levothyroxine 25 mcg (0.025 mg) Tab) [...] EDT With: Penelope CASAS DO, FAAFP Where: [facility] [address], [place] [address]- Medications What How Much When Instructions Unchanged enoxaparin (Lovenox 40 mg/ 0.4 mL Injection) 40 Milligram Subcutaneous Every 24 hours Contact prescribing physician if questions or concerns Unchanged ergocalciferol (Vitamin D) 2,000 International unit By Mouth Every week Contact prescribing physician if questions or concerns Unchanged fluticasone nasal (Flonase 0.05 mg/ inh Lomax) 2 Sprays Nasal Inhalation Every day each nostril Contact prescribing physician if questions or concerns Unchanged levothyroxine (levothyroxine 25 mcg (0.025 mg) Tab) 1 Tablets By Mouth Every day Dr. eClaya Contact prescribing physician if questions or concerns [...] you for choosing us for your care. [facility] Medicine Office/Clinic Noteon 93-04-7260Taihcm Medicine Office/Clinic NoteFami Medicine Office/Clinic Note Chief Complaint cough, sinus [...] created with voice recognition software. Occasional wrong-word or???ytihn-w-dlrh??? substitutions may have occurred due to the [...] days ago on Sunday. Has been using gkoj-fmh-ycrflam cough drops and Flonase for her allergies. [...] duration. Discussed antibiotics un (more content not included)...[facility] CompanyComment on above:Result Comment: Electronically Signed By: Aram QUINTEROS, Romulo Lynn\.cedrick\Date and Time Signed: 09/07/2509:46 EDTCNPNon 72-79-1334JTIRFpoisfmni (Ziipa) SANNA RENDON ([id number]) 1985 F Date Time Provider Department 09/02/24 [...] Date Reviewed: 08/26/2024 Reviewed by: Katherine Negrete APRN.[employer]ODU[employer] MOLDER - Fully Assessed Reason for Visit: Patient [...] 05/28/2024 Encounter Status:Closed by RACHAEL JOHNSON on 09/03/24[facility] Quanton 62-79-2945UID.beta subunit Qn558 m[IU]/mLHigh1-3FUK HealthcareComment on above:Result Comment: 'F NON < 1 - 3' ' 0.2 - 1 WEEK = 5 TO 50' ' 1 - 2 WEEKS = 50 - 500' ' 2 - 3 WEEKS = 100 - 5000' ' 3 - 4 WEEKS = 500 - 85096' ' 4 - 5 WEEKS = 1000 - 50999' ' 5 - 6 WEEKS = 35578 - 450745' ' 6 - 8 WEEKS = 72660 - 488908' ' 8 - 12 WEEKS = 06111 - 455216'Performed By: #### [id number] #### [facility] [address] [place], [place] [address]dict [place], [place] [address]XlIV Quanton 16-42-3344XZF.beta subunit Qn188 m[IU]/mLHigh1-3 [facility] HealthComment on above:Result Comment: 'F NON < 1 - 3' ' 0.2 - 1 WEEK = 5 TO 50' ' 1 - 2 WEEKS = 50 - 500' ' 2 - 3 WEEKS = 100 - 5000' ' 3 - 4 WEEKS = 500 - 73891' ' 4 - 5 WEEKS = 1000 - 39990' ' 5 - 6 WEEKS = 80181 - 331039' ' 6 - 8 WEEKS = 37276 - 096439' ' 8 - 12 WEEKS = 39959 - 090127'Performed By: #### [id number] #### [facility] [address] [place], [place] [address]BKFWwb 64-96-2079MTWLKguznobcd (HEMASA) SANNA RENDON ([id number]) 1985 F Date Time Provider Department 08/26/24 [...] Date Reviewed: 08/26/2024 Reviewed by: Katherine Negrete APRN.[employer]ODU[employer] MOLDER - Fully Assessed Reason for Visit: Lab Orders [1688] Primary Visit Diagnosis:Antiphospholipid antibody positive [R76.0] Other Visit Diagnoses: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] Malaise and fatigue [R53.81, R53.83] Vitamin D deficiency [E55.9] Order(s):COMPLETE BLOOD COUNT AND DIFFERENTIAL [SQCBCDIF] Order #: [id number] FUTURE COMPREHENSIVE METABOLIC PANEL [SQCMP] Order #: [id number] FUTURE THYROID STIMULATING HORMONE [SQTSH] Order #: [id number] FUTURE IRON AND TIBC [SQIRON] Order #: [id number] FUTURE FERRITIN [SQFERR] Order #: [id number] FUTURE VITAMIN D 25 HYDROXY [SQVITD] Order #: [id number] FUTURE VITAMIN B12 [SQB12] Order #: [id number] FUTURE Prescriptions as of 08/26/2024 - enoxaparin [...] 05/28/2024 Encounter Status:Closed by KATHERINE NEGRETE on 08/26/24[facility] Quanton 36-62-8217WYS.beta subunit Qn83 m[IU]/mLHigh1-3FUK HealthcareComment on above:Result Comment: 'F NON < 1 - 3' ' 0.2 - 1 WEEK = 5 TO 50' ' 1 - 2 WEEKS = 50 - 500' ' 2 - 3 WEEKS = 100 - 5000' ' 3 - 4 WEEKS = 500 - 58166' ' 4 - 5 WEEKS = 1000 - 95302' ' 5 - 6 WEEKS = 56954 - 274798' ' 6 - 8 WEEKS = 88089 - 697645' ' 8 - 12 WEEKS = 23961 - 109555'Performed By: #### [id number] #### [facility] [address] [place], [place] [address]LrUF Quanton 71-44-2542JDT.beta subunit Qn22 m[IU]/mLHigh1-3 [facility] HealthComment on above:Result Comment: 'F NON < 1 - 3' ' 0.2 - 1 WEEK = 5 TO 50' ' 1 - 2 WEEKS = 50 - 500' ' 2 - 3 WEEKS = 100 - 5000' ' 3 - 4 WEEKS = 500 - 56659' ' 4 - 5 WEEKS = 1000 - 47258' ' 5 - 6 WEEKS = 65634 - 218091' ' 6 - 8 WEEKS = 07924 - 786168' ' 8 - 12 WEEKS = 31512 - 511310'Performed By: #### [id number] #### [facility] [address] [place], [place] [address]OYLAYAHLHOitjpcl By: SYSTEM SYSTEM on 69-97-1234IDY.beta subunit Qn22 m[IU]/mLHigh1 - 3 mIU/mLRemisol ChemComment on above:Result Comment: 'F NON < 1 - 3' ' 0.2 - 1 WEEK = 5 TO 50' ' 1 - 2 WEEKS = 50 - 500' ' 2 - 3 WEEKS = 100 - 5000' ' 3 - 4 WEEKS = 500 - 00404' ' 4 - 5 WEEKS = 1000 - 47879' ' 5 - 6 WEEKS = 59997 - 159266' ' 6 - 8 WEEKS = 37151 - 778053' ' 8 - 12 WEEKS = 77475 - 744567'TSH Qn1.86 m[IU]/LNormal0.34 - 5.60 mcIU/mLRemisol ChemTSHon 90-75-5960SXS Qn1.86 m[IU]/LNormal0.34-5.60Mercy HealthComment on above:Performed By: #### [id number] #### [facility] [address] [place], [place] [address]ORR ( test) Ql (U)on 42-20-7569Paabnaafndmytv and review of laboratory resultsNormalNOMS HealthcarePreg Test, UrNegativeNegative NOMS [facility] HospitalNOTN Healthcare.Interpretation:on 23-59-5174QWC Ab IA QlComment Invalid Interpretation CodeMercy HealthComment on above:Result Comment: Not infected with HCV unless early or acute infection is suspected (which may be delayed in an immunocompromised individual), or other evidence exists to indicate HCV infection. Performed at: [facility] [id number] PhD Jd Garciaformed By: #### [id number] #### [facility] [address] [place], [place] [address]UMZ Antibody RFX to Quant PCRon 61-36-1785CUR Ab IA Ql Non-ReactiveInvalid Interpretation CodeNon ReactiveMercy Health Comment on above:Result Comment: Performed at: [facility] [id number] PhD Jd Garciaformed By: #### [id number] #### [facility] [address] [place], [place] [address]XVJ Screen 4th Generation wRfxon 32-30-9497FLO 1+2 Ab+HIV1 p24 Ag IA QlNon-ReactiveInvalid Interpretation CodeNon ReactiveMercy HealthComment on above:Result Comment: HIV-1/HIV-2 antibodies and HIV-1 p24 antigen were NOT detected. There is no laboratory evidence of HIV infection. HIV Negative Performed at: [address] [id number] PhD Jd Garciaformed By: #### [id number] #### [facility] [address] [place], [place] [address]Pkg Agon 78-89-2170AKE e Ag IA QlNegativeInvalid Interpretation CodeNegativeMercy HealthComment on above:Result Comment: Performed at: [address] [id number] PhD Jd Garciaformed By: #### [id number] #### [facility] [address] [place] [address] 88-62-7059BLU surface Ag IA QlNegativeInvalid Interpretation CodeNegativeMercy HealthComment on above:Result Comment: Performed at: [address] [id number] PhD Jd Garciaformed By: #### [id number] #### [facility] [address] [place], [place] [address]INISJOWYBBowrcdm By: SYSTEM SYSTEM on 71-04-9988Hsgupfg [Mass/Vol]5.0 g/dLNormal3.3 - 5.0 gm/dLRemisol ChemAlbumin/Globulin [Mass ratio] 1.6 {ratio}Normal1.1 - 2.2Remisol ChemALP [Catalytic activity/Vol]49 [iU]/d Qmjywp29 - 98 Int._Unit/LRemisol ChemALT No additional P-5'-P [Catalytic activity/Vol]18 [iU]/dNormal6 - 46 Int._Unit/LRemisol ChemAnion gap [Moles/Vol] 13 mmol/LNormal6 - 16 mEq/LRemisol ChemAST [Catalytic activity/Vol]15 [iU]/d Normal5 - 43 Int._Unit/LRemisol ChemBilirubin [Mass/Vol]0.4 mg/dLNormal0.0 - 1.1 mg/dLRemisol ChemCalcium [Mass/Vol]10.0 mg/dLNormal8.9 - 11.1 mg/dLRemisol Chem Chloride [Moles/Vol]100 mmol/MNoz353 - 111 mmol/LRemisol ChemCO2 [Moles/Vol]25 mmol/GSpfgdm89 - 31 mmol/LRemisol ChemCreatinine [Mass/Vol]0.7 mg/dLNormal0.5 - 1.3 mg/dLRemisol VgehwWIP839 mL/min/1.73 l4Eeryfc>=59mL/min/1.73 i0Tcjcive Chem Globulin (S) [Mass/Vol]3.1 g/dLNormal1.4 - 4.0 gm/dLRemisol ChemGlucose [Mass/Vol]82 mg/jJFalytd73 - 199 mg/dLRemisol ChemPotassium [Moles/Vol]3.8 mmol/LNormal3.5 - 5.3 mmol/LRemisol ChemProtein [Mass/Vol]8.1 g/dLHigh6.0 - 7.8 gm/dLRemisol ChemSodium [Moles/Vol]134 mmol/WSfx169 - 145 mmol/LRemisol ChemUrea nitrogen [Mass/Vol]7 mg/dLNormal5 - 21 mg/dLRemisol ChemUrea nitrogen/Creatinine [Mass ratio]10 mg/lqKomxne58 - 20Remisol ChemCMPon 69-91-5910Hioonvk [Mass/Vol]5.0 g/dLNormal3.3-5.0[facility] Comment on above:Performed By: #### [id number] #### [facility] [address] [place], [place] [address]Iiufogo/Globulin (S) [Mass conc ratio]1.3Nfvjsy2.1-2.2[facility] Medical CenterComment on above:Performed By: #### [id number] #### [facility] [address] [place], [place] [address]FOQ [Catalytic activity/Vol]49 Int._Unit/KKeecym49-91TbbfveMercy HealthComment on above:Performed By: #### [id number] #### [facility] [address] [place], [place] [address]PAU No additional P-5'-P [Catalytic activity/Vol]18 Int._Unit/L Normal6-46Mercy HealthComment on above:Performed By: #### [id number] #### [facility] [address] [place], [place] [address]Wmmsi gap [Moles/Vol]13 mmol/LNormal6-16Mercy HealthComment on above:Performed By: #### [id number] #### [facility] [address] [place] [address]BBA [Catalytic activity/Vol]15 Int._Unit/LNormal5-43Mercy HealthComment on above:Performed By: #### [id number] #### [facility] [address] [place] [address]Fyiqejmuv [Mass/Vol]0.4 mg/dLNormal0.0-1.1[facility] Medical CenterComment on above:Performed By: #### [id number] #### [facility] [address] [place] [address]Vutgcsr [Mass/Vol]10.0 mg/dLNormal8.9-11.1[facility] Medical CenterComment on above:Performed By: #### [id number] #### [facility] [address] [place] [address]Jolhkkps [Moles/Vol]100 mmol/OCvo997-340KcknkoMercy HealthComment on above:Performed By: #### [id number] #### [facility] [address] [place] [address]XO6 [Moles/Vol]25 mmol/KWxvruu08-20MtyxcbMercy Health Comment on above:Performed By: #### [id number] #### [facility] [address] [place] [address]Ebawsutynt [Mass/Vol]0.7 mg/dLNormal0.5-1.3FUK HealthcareComment on above:Performed By: #### [id number] #### [facility] [address], [place] [address]Trbjhxxe (S) [Mass/Vol]3.1 g/dLNormal1.4-4.0Mercy HealthComment on above:Performed By: #### [id number] #### [facility] [address], [place] [address]Oxlbjyo [Mass/Vol]82 mg/wIEtjuhs95-791GutnpeMercy HealthComment on above:Performed By: #### [id number] #### [facility] [address] [place], [place] [address]Bxubntprx [Moles/Vol]3.8 mmol/LNormal3.5-5.3FUK HealthcareComment on above:Performed By: #### [id number] #### [facility] [address] [place], [place] [address]Ttpygbl [Mass/Vol]8.1 g/dLHigh6.0-7.8Mercy HealthComment on above:Performed By: #### [id number] #### [facility] [address] [place] [address]Gamzwv [Moles/Vol]134 mmol/OYqk215-080QojyrlMercy HealthComment on above:Performed By: #### [id number] #### [facility] [address] [place], [place] [address]Rtwy nitrogen [Mass/Vol]7 mg/dLNormal5-21Mercy HealthComment on above:Performed By: #### [id number] #### [facility] [address] [place], [place] [address]Voua nitrogen/Creatinine [Mass ratio]10 No HwievBxhhbv96-01 Mercy HealthComment on above:Performed By: #### [id number] #### [facility] [address] [place], [place] [address]lVGEhz 72-90-1974rNJI963 mL/min/1.73 f9Juuczp>=59[facility] Medical CenterComment on above:Performed By: #### [id number] #### [facility] [address] [place] [address]Svxrkm Medicine Office/Clinic Noteon 41-17-4253Qghtzy Medicine Office/Clinic NoteFacurahealth - boston Medicine Office/Clinic Note HPI Staff complaints of [...] PRAVEEN RESENDEZ FAAFP, Penelope Tony, FAM, PED [address], [place] [address]- Additional Instructions: Patient Education Bradycardia, [...] exam Historical Abdominal pain (more content not included)...[facility] Comment on above:Result Comment: Electronically Signed By: Inez Banegas\.br\Date and Time Signed: 07/08/24 08:54 EDTAmbulatory Visit Summaryon 91-05-7865Hmsbeinugn Visit SummaryAmbulatory Visit Summary SANNA RENDON :1985 [...] mg Tab) fluticasone nasal (Flonase 0.05 mg/inh Lomax) levothyroxine (levothyroxine 25 mcg (0.025 mg) Tab) [...] EDT With: Penelope CASAS DO, FAAFP Where: [facility] [address] [place] [address] [place] [address]- You Need to Schedule the Following Appointments Follow Up with PRAVEEN RESENDEZ FAAFP, Penelope Tony, CHRIS, PED When: Where: [address], [place] [address]- Medications What How Much When [...] Unchanged fluticasone nasal (Flonase 0.05 mg/ inh Lomax) 2 Sprays Nasal Inhalation Every day each [...] you for choosing us for your care. [facility] CompanyBhCG Quanton 57-32-2742HZC.beta subunit Qn1 m[IU]/mLNormal1-3[facility] Medical CenterComment on above:Result Comment: 'F NON < 1 - 3' ' 0.2 - 1 WEEK = 5 TO 50' ' 1 - 2 WEEKS = 50 - 500' ' 2 - 3 WEEKS = 100 - 5000' ' 3 - 4 WEEKS = 500 - 43255' ' 4 - 5 WEEKS = 1000 - 88278' ' 5 - 6 WEEKS = 54164 - 716048' ' 6 - 8 WEEKS = 17097 - 751171' ' 8 - 12 WEEKS = 78151 - 501935'Performed By: #### [id number] #### [facility] [address] [place], [place] [address]LJAUX 2 Mutationson 39-83-6340TBIWS InterpretationSee Note Community HospitalComment on above:Result Comment: Indication for testing: Determine genetic contribution to hyperhomocysteinemia. 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 The [employer] Practice Guidelines indicate [...] a contributing factor to hyperhomocysteinemia. Variants Tested: c.665C>T(p.Fqa357Tre) and c.1286A>C(p.Pqi153Trb). (legacy names C677T and E0366D, respectively). Clinical Sensitivity: Undefined; hyperhomocysteinemia is caused [...] developed and its performance characteristics determined by [facility]. It has not been cleared or approved by the [place] Food and Drug Administration. This test was performed in a CLIA certified laboratory and is intended for clinical purposes. Counseling and informed consent are recommended for genetic testing. Consent forms are available online. Performed By: [facility] [address] [place] [address] Food Service: Yayo Moncada MD, PhD CLIA Number: [id number] Mutation: [id number]Community HospitalMTHFR Mutation: N116CFecgawlfIfyezrWzyieCommunity Hospital MTHFR PCR SpecimenWhole BloodCommunity HospitalAnti-nuclear Ab (NASEEM) Reflexon 57-14-3828Fdte-Nuclear Ab (NASEEM), IgG by ELISANot detectedNormal None DetSt. Francis HospitalComment on above:Result Comment: If suspicion of connective tissue disease is strong and NASEEM EIA is negative, consider testing for NASEEM by IFA ([id number]). No antibodies to Anti-Nuclear Antibodies (NASEEM) detected. The Extractable Nuclear Antigen Antibodies (DIAL REFINISHER, Christianson, SSA 52, SSA 60, Scleroderma, Brianna-1 and SSB) and Double Stranded DNA (dsDNA) Antibody, IgG will not be performed. INTERPRETIVE INFORMATION: Anti-Nuclear Antibodies (NASEEM), IgG by ALEX Antinuclear Antibodies (NASEEM), IgG by ALEX: NASEME specimens are screened using enzyme-linked immunosorbent assay (ALEX) methodology. All ALEX results reported as Detected are further tested by indirect fluorescent assay (IFA) using HEp-2 substrate with an IgG-specific conjugate. The NASEEM ALEX screen is designed to detect antibodies against dsDNA, histones, SS-A (Ro), SS-B (La), Christianson, Christianson/DIAL REFINISHER, Scl-70, Brianna-1, centromeric proteins, other antigens extracted from the HEp-2 cell nucleus. NASEEM ALEX assays have been reported to have lower sensitivities than NASEEM IFA for systemic autoimmune rheumatic diseases (SARD). Negative results do not necessarily rule out SARD. Performed By: [facility] [address] [place], [place] [id number] Food Service: Yayo Moncada MD, PhD CLIA Number: [id number] (Histidyl-tRNA Synthetase) Ab, IgGon 98-77-9918Ke-1 (Histidyl-tRNA Synthetase) Ab, IgG0 AU/mLNormal0-40[facility] Comment on above:Result Comment: INTERPRETIVE INFORMATION: Brianna-1 Antibody, IgG 29 AU/mL or less.........Negative 30-40 AU/mL..............Equivocal 41 AU/mL or greater......Positive Presence of Brianna-1 (antihistidyl transfer RNA [t-RNA] synthetase) antibody is associated with polymyositis and may also be seen in patients with dermatomyositis. Brianna-1 antibody is associated with pulmonary involvement (interstitial lung disease), Raynaud phenomenon, arthritis, and radiator mechanic's hands (implicated in antisynthetase syndrome). Performed By: [facility] [address] [place] [address] Food Service: Yayo Moncada MD, PhD CLIA Number: [id number] and SSB Abs, IgGon 57-92-2359KZZ 52 (Ro) (KELLEN) Ab, IgG1 AU/mLNormal0-40[facility] HospitalComment on above:Result Comment: INTERPRETIVE INFORMATION: SSA-52 [...] interstitial lung disease.SSB (La) (KELLEN) Ab, IgG0 AU/mLNormal0-40[facility] Comment on above:Result Comment: INTERPRETIVE INFORMATION: [...] (PSS) also have this antibody. Performed By: [facility] [address] [place] [address] Food Service: Yayo Moncada MD, PhD CLIA Number: [id number] Antibodies, IgG/IgMon 99-94-5072Ohvvrzpodsi Ab IgG95 GPLCritically high<=14[facility] HospitalComment on above: Result Comment: INTERPRETIVE INFORMATION: [...] other criteria phospholipid antibody tests. Performed by [facility], [address] [facility],[place] [id number] www.[email or web address], Zhang Bledsoe MD, Lab. Director [place] Number: [id number] Ab IgM<10Normal<=12[facility] HospitalComment on above:Result Comment: INTERPRETIVE INFORMATION: Anti- [...] other criteria phospholipid antibody tests. Performed by [facility], [address] [facility],[place] [id number] www.[email or web address], Zhang Bledsoe MD, Lab. Director CLIA Number: [id number] (Smooth Muscle) Antibody, IgAon 26-07-0871J-Actin Ab, IgA1.8 UnitsNormal0.0-24.9[facility] HospitalComment on above: Result Comment: INTERPRETIVE INFORMATION: F-Actin (Smooth Muscle)Antibody, IgA 20.0 Units or less.....Negative 20.1 - 24.9 Units......Equivocal 25.0 Units or greater..Positive The presence of IgA antibodies against F-Actin in patients having positive serologic markers for celiac disease, such as antiendomysial, anti-transglutaminase, and/or anti-gliadin peptide IgA, indicates the presence of intestinal villus atrophy. Positive results should be confirmed with biopsy. Performed By: [facility] [address] [place] [address] Food Service: Yayo Moncada MD, PhD CLIA Number: [id number] Ab, IgG by ELISAon 13-35-3261fiNGQ Ab, IgG by ALEX 4 IUNormal0-24[facility] HospitalComment on above:Result Comment: INTERPRETIVE INFORMATION: Double-Stranded DNA (dsDNA) Ab IgG ALEX 24 IU or less........Negative 25-30 IU.............Borderline Positive 30-60 IU.............Low Positive 60-200 IU............Positive 201 IU or greater....Strong Positive Positivity for anti-double stranded DNA (anti-dsDNA) IgG antibody is a diagnostic criterion of systemic lupus erythematosus (SLE). Specimens are initially screened by enzyme-linked immunosorbent assay (ALEX). If ordered as reflex (3419804), positive ALEX results (>24 IU) will be [...] recommendations for testing may be found at [email or web address]. Performed by [facility], [address] [facility] [place] [address] www.[email or web address], Zhang Bledsoe MD, Lab. Director CASANDRA Number: [id number] Proteinon 57-44-3949SNJ [Mass/Vol]mg/LNormal 0.0-5.0[facility] HospitalComment on above:Performed By: #### CRP #### [facility] [address] [place] [address] Xxqwoltlzhjwg Rateon 66-55-8638Spgetqimgaiff Rate18 mmNormal0-20 [facility] HospitalComment on above:Result Comment: ESR Units mm/Hr Performed By: #### ESR #### [facility] [address] [place] [address] [facility] Medicine Office/Clinic Noteon 00-98-6902B[place] Medicine Office/Clinic NoteFacurahealth - [facility] Office/Clinic Note Chief Complaint C/O: Rt [...] bedtime), # 90 tab(s), Refills(s) 4, Pharmacy: [facility], 168, cm, 06/30/24 8:36:00 EST, Height/Length Dosing, 97.2, kg, 06/30/24 8:36:00 EST, Weight Dosing Total time spent preparing the chart, conducting of the encounter with the patient and family and time spent documenting, reviewing, and ordering tests was 25 minutes. Follow-up With When Contact Information Penelope CASAS DO, FAAFP, CHRIS, PED In 2 months [address], [place] [address] [phone] (more content not included)...[facility] Comment on above:Result Comment: Electronically Signed By: Penelope CASAS DO, FAAFP\Date and Time Signed: 06/30/24 09:24 ESTRECURRENT VAGINITIS (HTRX)on 80-73-9787VDQEXDVQL MUOKAYJ3DZZR HealthcareATOPOBIUM VAGINAENot detectedNOMS HealthcareBVAB 2,3 (BACTERIAL VAGINOSIS ASSOCIATED BACTERIA 2, 3); MOBILUNCUS [id number] HealthcareBVAB 2,3 (BACTERIAL VAGINOSIS ASSOCIATED BACTERIA 2, 3); MOBILUNCUS SPPNot detectedNOMS HealthcareCANDIDA ALBICANS, PARAPSILOSIS, [id number] HealthcareCANDIDA ALBICANS, PARAPSILOSIS, TROPICALISNot detected NOMS HealthcareCANDIDA GTBBDWNM2FLKV HealthcareCANDIDA GLABRATANot detectedNOMS HealthcareCANDIDA TQLIRY1QGOX HealthcareCANDIDA KRUSEINot detectedNOMS HealthcareCHLAMYDIA DTATXIYEWEG1ZTZL HealthcareCHLAMYDIA TRACHOMATISNot detected NOMS HealthcareGARDNERELLA WEPFOTTMC5BEFD HealthcareGARDNERELLA VAGINALISNot detectedNOMS HealthcareMEGASPHAERA (TYPES 1, 2)0NOMS HealthcareMEGASPHAERA (TYPES 1, 2)Not detectedNOMS HealthcareMYCOPLASMA DOLWZAIBND7WQYC Healthcare MYCOPLASMA GENITALIUMNot detectedNOMS HealthcareNEISSERIA OUGBIHLVESH6QYVH HealthcareNEISSERIA GONORRHOEAENot detectedNOMS HealthcareTRICHOMONAS VAGINALIS0 NOMS HealthcareTRICHOMONAS VAGINALISNot detectedNOMS HealthcareNOMS Healthcare Urinalysis macro (dipstick) panel (U)on 23-07-0297Zpcgkyuee, UANegativeNegative - 4(70) +++ mg/dLNOMS HealthcareBlood, UANegativeNegative [...] - 12 mg/dLNOMS HealthcareNOMS HealthcareAmbulatory Visit Summaryon 81-90-2278Ibydslsfal Visit SummaryAmbulatory Visit Summary SANNA RENDON :1985 [...] (Vitamin D) fluticasone nasal (Flonase 0.05 mg/inh Lomax) levothyroxine (levothyroxine 25 mcg (0.025 mg) Tab) [...] EDT With: Penelope CASAS DO, FAAFP Where: [facility] [address] [place] [address], [place] [address]- Medications What How Much When Why Instructions New azithromycin (Zithromax 250 mg Tab) 1 Packets By Mouth As Directed Sinusitis Duration: 5 Days Refills: 1 as directed on package labeling Pickup at [facility] 1985 New fluconazole (Diflucan 150 mg Tab) 1 Tablets By Mouth Every 7 days Yeast infection Refills: 1 Pickup at [facility] 1985 Unchanged enoxaparin (Lovenox 40 mg/ 0.4 mL Injection) 40 Milligram Subcutaneous Every 24 hours Contact prescribing physician if questions or concerns Unchanged ergocalciferol (Vitamin D) 2,000 International unit By Mouth Every week Contact prescribing physician if questions or concerns Unchanged fluticasone nasal (Flonase 0.05 mg/ inh Lomax) 2 Sprays Nasal Inhalation Every day each [...] physician if questions or concerns Pharmacy Information [facility] 1986: [address] [place] [id number] [phone] Allergies Milk Products (Illness) ciprofloxacin (Numbness and [...] choosing us for your care. NormalFisher [facility] Office/Clinic Noteon 21-41-0390Gvupvn Medicine Office/Clinic NoteFacurahealth - [facility] Medicine Office/Clinic Note Chief Complaint Sinus pressure [...] day(s), # 6 tab(s), Refills(s) 1, Pharmacy: [facility] 1985, 168, cm, 06/09/24 14:03:00 EST, Height/Length Dosing, 98.4, kg, 06/19/24 16:19:00 EST, Weight Dosing Yeast infection (B37.9: Candidiasis, unspecified) Ordered: fluconazole, 150 mg = 1 tab(s), Oral, q7day, # 4 tab(s), Refills(s) 1, Pharmacy: [facility] 1986, 168, cm, 06/09/24 [...] Oral, q7day, 1 refills Flonase 0.05 mg/inh Lomax, 2 spray(s), Nasal, Daily, 11 refills levothyroxine [...] Given Patient Refuses influe (more content not included)...NormalMercy HealthComment on above:Result Comment: Electronically Signed By: MANDI BRYANT\.br\Date and Time Signed: 06/19/24 16:37 ESTCBC w/ Auto Diffon 06-12-2024 Basophils/100 WBC (Bld)0.3 %Normal0.0-2.0Mercy HealthComment on above:Performed By: #### [id number] #### [facility] [address] [place] [address]Kjpowihzf/Leukocytes Auto (Bld) [Pure # fraction]0.0 E9/LNormal 0.0-0.2Fisher [facility] Maryland Medical CenterComment on above:Performed By: #### [id number] #### [facility] [address] [place], [place] [address]Ltjprhzilzc (Bld) [#/Vol]0.0 E9/LNormal0.0-0.5Fisher [facility] Medical CenterComment on above:Performed By: #### [id number] #### [facility] [address] [place] [address]Lnkllxpqbij/100 WBC (Bld)0.3 %Normal0.0-8.0Mercy HealthComment on above:Performed By: #### [id number] #### [facility] [address] [place], [place] [address]Zxtjtbcfsnl distribution width (RBC) [Ratio]14.0 %Normal 10.9-14.2FUK HealthcareComment on above:Performed By: #### [id number] #### [facility] [address] [place] [address] 588[address]Qkaaljomfp (Bld) [Volume fraction]40.9 %Ecwiif67.0-46.0Mercy HealthComment on above:Performed By: #### [id number] #### [facility] [address] [place] [address] 15[address]Bwhjisullb (Bld) [Mass/Vol]13.9 g/yDMwpgoa44.0-16.0Mercy HealthComment on above:Performed By: #### [id number] #### [facility] [address] [place] [address]Culvsclzhls (Bld) [#/Vol]2.8 E9/LNormal1.0-4.0Mercy HealthComment on above:Performed By: #### [id number] #### [facility] [address] [place] [address] 119[address]Tuyvtsgjuux/100 WBC (Bld)24.6 %Nmgyme98.0-50.0Mercy HealthComment on above:Performed By: #### [id number] #### [facility] [address] [place] [address] 390[address]YOA (RBC) [Entitic mass]30.7 yuQpgpho68.0-34.0Mercy HealthComment on above:Performed By: #### [id number] #### [facility] [address] [place] [address] 160[address]PWLO (RBC) [Mass/Vol]33.9 g/rYEghxsf52.4-36.0Mercy HealthComment on above:Performed By: #### [id number] #### [facility] [address] [place] [address] 459[address]KZP (RBC) [Entitic vol]90.6 rLEbircy64.0-100.0Mercy HealthComment on above:Performed By: #### [id number] #### [facility] [address] [place] [address] 547[address]Eyjtmlpjv (Bld) [#/Vol]0.6 E9/LNormal0.2-1.0Mercy HealthComment on above:Performed By: #### [id number] #### [facility] [address] [place] [address] 885[address]Azhlgjbmwbs (Bld) [#/Vol]8.0 E9/LHigh2.0-7.5FUK HealthcareComment on above:Performed By: #### [id number] #### [facility] [address] [place] [address] 00952Irdldigwgbl/100 WBC (Bld)69.6 %Mwyivx23.0-75.0Mercy HealthComment on above:Performed By: #### [id number] #### [facility] [address] [place] [address] 978[address]Rjxeecpu598.0 E9/RTdhabk182.0-500.0[facility] Comment on above:Performed By: #### [id number] #### [facility] [address] [place] [address]Ogvtqalv mean volume (Bld) [Entitic vol]8.2 fLNormal6.4-10.8 Mercy HealthComment on above:Performed By: #### [id number] #### [facility] [address] [place] [address] 165[address]VBQ (Bld) [#/Vol]4.5 E12/LNormal4.3-5.9Mercy HealthComment on above:Performed By: #### [id number] #### [facility] [address] [place] [address] 34[address]UUT corrected for nucl RBC Auto (Bld) [#/Vol]11.5 E9/LHigh 4.0-11.0Mercy HealthComment on above:Performed By: #### [id number] #### [facility] [address] [place], [place] [address]JMNVVNFDRZXcxwmeu By: SYSTEM SYSTEM on 35-67-5582Bqexjfpyx/100 WBC (Bld)0.3 %Normal0.0 - 2.0 %Remisol HemeBasophils/Leukocytes Auto (Bld) [Pure # fraction]0.0 E9/LNormal0.0 - 0.2 E9/LRemisol HemeEosinophils (Bld) [#/Vol]0.0 E9/LNormal0.0 - 0.5 E9/LRemisol HemeEosinophils/100 WBC (Bld)0.3 %Normal0.0 - 8.0 %Remisol HemeErythrocyte distribution width (RBC) [Ratio]14.0 %Mmgqks91.9 - 14.2 %Remisol HemeHematocrit (Bld) [Volume fraction]40.9 %Tktddg73.0 - 46.0 % Remisol HemeHemoglobin (Bld) [Mass/Vol]13.9 g/vBHthiac38.0 - 16.0 gm/dLRemisol HemeLymphocytes (Bld) [#/Vol]2.8 E9/LNormal1.0 - 4.0 E9/LRemisol Heme Lymphocytes/100 WBC (Bld)24.6 %Ltdoyh52.0 - 50.0 %Remisol HemeMCH (RBC) [Entitic mass]30.7 jyZwroji89.0 - 34.0 pgRemisol HemeMCHC (RBC) [Mass/Vol]33.9 g/dL Lgtpfu52.4 - 36.0 gm/dLRemisol HemeMCV (RBC) [Entitic vol]90.6 vZKriynb61.0 - 100.0 fLRemisol HemeMonocytes (Bld) [#/Vol]0.6 E9/LNormal0.2 - 1.0 E9/LRemisol HemeMonocytes/100 WBC (Bld)5.2 %Normal4.0 - 14.0 %Remisol HemeNeutrophils (Bld) [#/Vol]8.0 E9/LHigh2.0 - 7.5 E9/LRemisol HemeNeutrophils/100 WBC (Bld)69.6 % Tolumf65.0 - 75.0 %Remisol BebzQjfisjne859.0 E9/GVpgjix190.0 - 500.0 E9/LRemisol HemePlatelet mean volume (Bld) [Entitic vol]8.2 fLNormal6.4 - 10.8 fLRemisol HemeRBC (Bld) [#/Vol]4.5 E12/LNormal4.3 - 5.9 E12/LRemisol HemeWBC corrected for nucl RBC Auto (Bld) [#/Vol]11.5 E9/LHigh4.0 - 11.0 E9/LRemisol HemeAmbulatory Visit Summaryon 64-65-3488Jxutxjtwck Visit SummaryAmbulatory Visit Summary SANNA RENDON :1985 Visit Date:06/09/2024 Ambulatory Visit Instructions Your Diagnosis Antiphospholipid antibody with hypercoagulable state H/O: CVA Gestational diabetes BMI 35.0-35.9,adult Morbid obesity Your Care Team Attending Physician - Penelope CASAS DO, FAAFP Primary Care Physician - Penelope CASAS DO, FAAFP This Is Your Medications List fluticasone nasal (Flonase 0.05 mg/inh Lomax) Contact prescribing physician if questions or concerns [...] EDT With: Penelope CASAS DO, FAAFP Where: [facility] [address] [place] [address], [place] [address]- Medications What How Much When Instructions New fluticasone nasal (Flonase 0.05 mg/ inh Lomax) 2 Sprays Nasal Inhalation Every day Refills: 11 each nostril Pickup at [facility]/pharmacy #[id number] Unchanged enoxaparin (Lovenox 40 mg/ 0.4 mL [...] physician if questions or concerns [id number] [address] [place], [place] [id number] [phone] Allergies Milk Products (Illness) ciprofloxacin (Numbness and [...] your care. NormalFisher University Of Maryland Medical CenterBhCG Quanton 47-88-3370GYP.beta subunit Qn2 m[IU]/mLNormal1-3Fisher [facility] Medical CenterComment on above:Result Comment: 'F NON < 1 - 3' ' 0.2 - 1 WEEK = 5 TO 50' ' 1 - 2 WEEKS = 50 - 500' ' 2 - 3 WEEKS = 100 - 5000' ' 3 - 4 WEEKS = 500 - 54798' ' 4 - 5 WEEKS = 1000 - 50663' ' 5 - 6 WEEKS = 97271 - 509294' ' 6 - 8 WEEKS = 48154 - 582564' ' 8 - 12 WEEKS = 59184 - 195979'Performed By: #### [id number] #### [facility] [address] [place], [place] [address]QJPWRHTWJPrujuxj By: SYSTEM SYSTEM on 08-76-8283KSB Qn1.97 m[IU]/LNormal0.34 - 5.60 mcIU/mLRemisol ChemFamily Medicine Office/Clinic Noteon 30-64-6488Djoddz Medicine Office/Clinic NoteFamily Medicine Office/Clinic Note Chief [...] from inside ear, not outside Moved from [place] Review of Systems PHQ Score Initial Depression [...] antibody with hypercoagulable state (D68.61: Antiphospholipid syndrome) [facility] Department of hematology/oncology following and treating with Lovenox, please see their consultation 05/28/2024. Treats with Lovenox 40 mg subcu every 24 hours 2. H/O: CVA (Z86.79: Personal history of other diseases of the circulatory system) Please see #1. 3. Gestational diabetes (O24.419: Gestational diabetes mellitus in , unspecified control) [facility]YSICIST [facility], [facility] following. Metformin XR 500 mg tabs [...] Daily, 16 gram, Refill(s) 11, each nostril, [facility]/pharmacy #6173, 168, cm, 06/09/24 14:03:00 EST, [...] Tony, FAM, PED In 6 months [address], [place] [address]- [phone] (more content not included)...[facility] Hospital CompanyComment on above:Result Comment: Electronically Signed By: Penelope CASAS DO, FAAFP\.br\Date and Time Signed: 06/09/24 14:24 ESTTSHon 49-57-4650JLW Qn1.97 m[IU]/LNormal0.34-5.60Mercy HealthComment on above:Performed By: #### [id number] #### [facility] [address] [place], [place] [address]PqLI Quanton 68-77-7153QKH.beta subunit Qn6 m[IU]/mLHigh1-3 Mercy HealthComment on above:Result Comment: 'F NON < 1 - 3' ' 0.2 - 1 WEEK = 5 TO 50' ' 1 - 2 WEEKS = 50 - 500' ' 2 - 3 WEEKS = 100 - 5000' ' 3 - 4 WEEKS = 500 - 93505' ' 4 - 5 WEEKS = 1000 - 18363' ' 5 - 6 WEEKS = 58429 - 014345' ' 6 - 8 WEEKS = 22656 - 480456' ' 8 - 12 WEEKS = 90734 - 983741'Performed By: #### [id number] #### [facility] [address] [place], [place] [address]([place])D3 [facility] 633[address]-cfuxeloccsachl D3 [Mass/Vol] 27.8 ng/mLLow31.0-80.0[facility] CenterComhur[facility] on above:Order Comment: Specimen Type: BLOOD SPECIMENOrdering Facility: [facility] Address:[address] [place], [place] [address]Zxozqv Comment: Classification of 25 [place] Vitamin D status: Deficiency/Insufficiency: < or = 30 ng/ml. Sufficiency/Optimal Levels: 31-80 ng/mL Toxicity: > 100 ng/mL. Test performed by chemiluminescent immunoassay.Performed By: #### 1989-3 ####[facility] LABCLIA [id number] [facility] [id number] Auto Differential panel (Bld)on 96-46-1936Nyncelten (Bld) [#/Vol]0.03 10*3/uLNormal<0.11CMadison Health on above:Order Comment: Specimen Type: BLOOD SPECIMENOrdering Facility: [facility] Address:[address] [place], [place] [address]Performed By: #### 14146-6 ####[facility] LABCLIA [id number] [place], [place] [address]Wjlprkekp/100 WBC (Bld)0.4 % [facility] on above:Order Comment: Specimen Type: BLOOD SPECIMENOrdering Facility: [facility] Address:[address] [place], [place] [address]Performed By: #### 41127-0 ####[facility] LABCLIA [id number] [place] [address] Differential cell count method Nom (Bld)AutoNormalCUniversity Hospitals [facility] Comment on above:Order Comment: Specimen Type: BLOOD SPECIMENOrdering Facility: [facility] Address:[address] [place] [address] Performed By: #### 06267-4 ####[facility] LABCLIA [id number] [place], [place] [address]Zottqatkjgp (Bld) [#/Vol]0.08 10*3/uLNormal<0.46[facility] on above:Order Comment: Specimen Type: BLOOD SPECIMENOrdering Facility: [facility] Address:[address] [place], [place] [address]Performed By: #### 98952-9 ####[facility] LABCLIA [id number] [place], [place] [address]Aqhbdwmnamj/100 WBC (Bld)0.9 %[facility] on above:Order Comment: Specimen Type: BLOOD SPECIMENOrdering Facility: [facility] Address:[address] [place], [place] [address]Performed By: #### 56876-3 ####[facility] LABIA [id number] [place], [place] [address]Pimdtasijgd distribution width (RBC) [Ratio]13.8 %Hopwyh88.5-15.0[facility] on above: Order Comment: Specimen Type: BLOOD SPECIMENOrdering Facility: [facility] Address:[address] [place], [place] [address]Performed By: #### 69184- 8 ####[facility] LABIA [id number] [place], [place] [address]Sgfqvcykjx (Bld) [Volume fraction]34.0 %Low36.0-46.0 [facility] on above:Order Comment: Specimen Type: BLOOD SPECIMENOrdering Facility: [facility] Address:[address] [place], [place] [address]Performed By: #### 14427-1 ####[facility] LABIA [id number] [place], [place] [address]Hyyxkrmpor (Bld) [Mass/Vol]11.5 g/sXLxzelm90.5-15.5CMadison Health on above: Order Comment: Specimen Type: BLOOD SPECIMENOrdering Facility: [facility] Address:[address] [place], [place] [address]Performed By: #### 43094- 8 ####[facility] LABCLIA [id number] [place], [place] [address]Qcgvrxuy granulocytes (Bld) [#/Vol]0.03 10*3/uLNormal <0.10[facility] on above:Order Comment: Specimen Type: BLOOD SPECIMENOrdering Facility: [facility] Address:[address] [place], [place] [address]Performed By: #### 74374-0 ####[facility] LABCLIA [id number] [place], [place] [address]Bglmtwkm granulocytes/100 WBC (Bld)0.4 %NormalOhioHealth Grady Memorial Hospital on above: Order Comment: Specimen Type: BLOOD SPECIMENOrdering Facility: [facility] Address:[address] [place], [place] [address]Performed By: #### 69532- 8 ####[facility] LABCLIA [id number] [place], [place] [address]Spnlokbtuuh (Bld) [#/Vol]2.86 10*3/uLNormal1.00-4.00 [facility] on above:Order Comment: Specimen Type: BLOOD SPECIMENOrdering Facility: [facility] Address:[address] [place], [place] [address]Performed By: #### 49509-2 ####[facility] LABIA [id number] [place], [place] [address]Xhlrhdhoqsc/100 WBC (Bld)33.4 %NormalOhioHealth Grady Memorial Hospital on above:Order Comment: Specimen Type: BLOOD SPECIMENOrdering Facility: [facility] Address:[address] [place], [place] [address]Performed By: #### 46781-4 ####[facility] LABCLIA [id number] [place], [place] [address]STB (RBC) [Entitic mass]30.8 kzJslizb87.0-34.0[facility] on above:Order Comment: Specimen Type: BLOOD SPECIMENOrdering Facility: [facility] Address:[address] [place], [place] [address]Performed By: #### 18295-6 ####[facility] LABIA [id number] [place], [place] [address]NSYY (RBC) [Mass/Vol]33.8 g/aGRthqab04.5-36.0[facility] on above: Order Comment: Specimen Type: BLOOD SPECIMENOrdering Facility: [facility] Address:[address] [place], [place] [address]Performed By: #### 06387- 8 ####[facility] LABCLIA [id number] [place], [place] [address]RCD (RBC) [Entitic vol]91.2 fMQzqkad77.0-100.0[facility] on above:Order Comment: Specimen Type: BLOOD SPECIMENOrdering Facility: [facility] Address:[address] [place], [place] [address]Performed By: #### 66682-8 ####[facility] LABIA [id number] [place], [place] [address]Plqahqtgm (Bld) [#/Vol]0.66 10*3/uLNormal<0.87[facility] on above:Order Comment: Specimen Type: BLOOD SPECIMENOrdering Facility: [facility] Address:[address] [place], [place] [address]Performed By: #### 78622- 8 ####[facility] LABCLIA [id number] [place], [place] [address]Qhojxjthi/100 WBC (Bld)7.7 %NormalOhioHealth Grady Memorial Hospital on above:Order Comment: Specimen Type: BLOOD SPECIMENOrdering Facility: [facility] Address:[address] [place], [place] [address]Performed By: #### 96478-4 ####[facility] LABCLIA [id number] [place], [place] [address]Ijbgceceeup (Bld) [#/Vol]4.90 10*3/uLNormal1.45-7.50[facility] on above:Order Comment: Specimen Type: BLOOD SPECIMENOrdering Facility: [facility] Address:[address] [place], [place] [address]Performed By: #### 99479-3 ####[facility] LABCLIA [id number] [place], [place] [address]Cxuvnjuywhm/100 WBC (Bld)57.2 %NormalOhioHealth Grady Memorial Hospital on above:Order Comment: Specimen Type: BLOOD SPECIMENOrdering Facility: [facility] Address:[address] [place], [place] [address]Performed By: #### 12026-2 ####[facility] LABCLIA [id number] [place], [place] [address]Jiefxxgvu RBC (Bld) [#/Vol] 10*3/uLNormal<0.01[facility] on above:Order Comment: Specimen Type: BLOOD SPECIMENOrdering Facility: [facility] Address:[address] [place], [place] [address]Performed By: #### 58597-6 ####[facility] LABCLIA [id number] [place], [place] [address]Warbvgpsd RBC/100 WBC (Bld) [Ratio]0.0 /100 WBCNormal [facility] on above:Order Comment: Specimen Type: BLOOD SPECIMENOrdering Facility: [facility] Address:[address] [place], [place] [address]Performed By: #### 54175-4 ####[facility] LABCLIA [id number] [place], [place] [address]Jsshosna mean volume (Bld) [Entitic vol]9.6 fLNormal9.0-12.7CMadison Health on above:Order Comment: Specimen Type: BLOOD SPECIMENOrdering Facility: [facility] Address:[address] [place] [address] Performed By: #### 05588-8 ####[facility] LABIA [id number] [place], [place] [address]Rlpjetdro (Bld) [#/Vol]345 10*3/ySMcpxqm686-107ApcjqiwttOhioHealth Grady Memorial Hospital on above:Order Comment: Specimen Type: BLOOD SPECIMENOrdering Facility: [facility] Address:[address] [place], [place] [address]Juzngiear By: #### [id number] ####[facility] LABCLIA [id number] [place], [place] [address]SOT (Bld) [#/Vol]3.73 10*6/uLLow3.90-5.20[facility] on above:Order Comment: Specimen Type: BLOOD SPECIMENOrdering Facility: [facility] Address:[address] [place] [address] 848[address]Lgqhryelo By: #### 65978-7 ####[facility] LABIA [id number] [place], [place] [address]AXD (Bld) [#/Vol]8.56 10*3/uL Normal3.70-11.00[facility] on above:Order Comment: Specimen Type: BLOOD SPECIMENOrdering Facility: [facility] Address:[address] [place] [address] 17[address]Oqzwgmicr By: #### 80421-1 ####[facility] LABIA [id number] [place], [place] [address]ANQTTByt 63-45-8980EBCUJPLlmef (SP) Office (HEMASA) SANNA RENDON ([id number]) 1985 F Date Time Provider Department 05/28/24 1:00 PM KRISTOFER CALIX During your visit today, we recorded the following information about you: Temperature Pulse Respiration Blood pressure 97.6 degrees 72/minute 16/minute 123/83 Weight Height 98.5 kg 1.677 m Kristofer Calix MD 05/29/2024 9:13 AM Signed NAME: Sanna Rendon CLINIC NO.: [id number] DATE OF SERVICE: May 28, 2024 (Levon) [...] later in 2018. These were found in [place], [place]. I don't have access to these [...] a target-like rash shortly before presenting to [facility] in 2016 with headaches and was [...] soon. When she had a stroke in [place], she had symptoms up to a month [...] having trouble losing weight. (more content not included)...NormalDiley Ridge Medical CenterCNPNon 05-28-2024 CNPNTelephone (NCCAP) SANNA RENDON ([id number]) 1985 F Date Time Provider Department 05/28/24 [...] 05/28/2024 Encounter Status:Closed by TAYLOR ESCUDERO on 05/28/24NormalCOhioHealth Van Wert Hospitalprehensive metabolic 2000 panelon 97-24-5061Qdmivfo [Mass/Vol]4.4 g/dLNormal3.9-4.9CMadison Health on above:Order Comment: Specimen Type: BLOOD SPECIMENOrdering Facility: [facility] Address:[address] [place], [place] [address]Tzhgdjidv By: #### 98839-5 ####[facility] LABCLIA [id number] [place], [place] [address]MHD [Catalytic activity/Vol]59 U/ALfpmjz59-655JbnlnxkdoOhioHealth Grady Memorial Hospital on above:Order Comment: Specimen Type: BLOOD SPECIMENOrdering Facility: [facility] Address:[address] [place], [place] [address]Performed By: #### 94330-2 ####[facility] LABCLIA [id number] [facility] HOSPITALTEETEEBOONE, [place] [address]RII [Catalytic activity/Vol]12 U/LNormal7-38[facility] on above:Order Comment: Specimen Type: BLOOD SPECIMENOrdering Facility: [facility] Address:[address] [place], [place] [address]Performed By: #### 82766- 8 ####[facility] LABCLIA [id number] [place], [place] [address]Teirs gap [Moles/Vol]10 mmol/LNormal8-15[facility] on above:Order Comment: Specimen Type: BLOOD SPECIMENOrdering Facility: [facility] Address:[address] [place], [place] [address]Performed By: #### 76715-3 ####[facility] LABCLIA [id number] [place], [place] [address]YFJ [Catalytic activity/Vol]11 U/ABpq71-44NpqefotlxOhioHealth Grady Memorial Hospital on above:Order Comment: Specimen Type: BLOOD SPECIMENOrdering Facility: [facility] Address:[address] [place], [place] [address]Performed By: #### 87732-0 ####[facility] LABCLIA [id number] [place] [address] Bilirubin [Mass/Vol]0.2 mg/dLNormal0.2-1.3CMadison Health on above:Order Comment: Specimen Type: BLOOD SPECIMENOrdering Facility: [facility] Address:[address] [place], [place] [address]Performed By: #### 38025-1 ####[facility] LABCLIA [id number] [place], [place] [address]Ouhdpmy [Mass/Vol]9.7 mg/dLNormal8.5-10.2CMadison Health on above:Order Comment: Specimen Type: BLOOD SPECIMENOrdering Facility: [facility] Address:[address] [place], [place] [address]Performed By: #### 17845-4 ####[facility] LABCLIA [id number] [facility] [place], [place] [address]Gkatbgmf [Moles/Vol]99 mmol/AHwnzix51-578HeivecenwOhioHealth Grady Memorial Hospital on above:Order Comment: Specimen Type: BLOOD SPECIMENOrdering Facility: [facility] Address:[address] [place], [place] [address]Performed By: #### 88320- 8 ####[facility] LABCLIA [id number] [facility] [place], [place] [address]IM8 [Moles/Vol]25 mmol/GKzrivm02-67OnxhlejpwOhioHealth Grady Memorial Hospital on above:Order Comment: Specimen Type: BLOOD SPECIMENOrdering Facility: [facility] Address:[address] [place], [place] [address]Performed By: #### 54272-4 ####[facility] LABCLIA [id number] [facility]ERSEHONOR[facility] RE[facility]IL[facility]ATION HOSPITALTEETEEBOONE, [place] [address]Qktdoemigb [Mass/Vol]0.71 mg/dL Normal0.58-0.96[facility] on above:Order Comment: Specimen Type: BLOOD SPECIMENOrdering Facility: [facility] Address:[address] [place], [place] [address]Performed By: #### 08756-6 ####[facility] LABCLIA [id number] [facility] [place], [place] [address]Niaardgciw and Glomerular filtration rate.predicted panel (S/P/Bld)112 mL/min/1.73m???Normal>=60[facility] on above:Order Comment: Specimen Type: BLOOD SPECIMENOrdering Facility: [facility] Address:[address] [place] [address] [place] [address]Nrusko Comment: Estimated Glomerular Filtration Rate (eGFR) is [...] not accurately reflect actual GFR.Performed By: #### 89133-5 ####[facility] LABCLIA [id number] [place], [place] [address]Qfqubvm [Mass/Vol]79 mg/xTRqqrcw18-34PtpclnretOhioHealth Grady Memorial Hospital on above:Order Comment: Specimen Type: BLOOD SPECIMENOrdering Facility: [facility] Address:[address] [id number] Comment: The [place] Diabetes Association (ADA) provides guidance for cutoff [...] Standards of Medical Care in Diabetes 2016, [place] [employer]. Diabetes Care. 2016.39(Suppl 1).Performed By: #### 01883-6 ####[facility] LABCLIA [id number] [place], [place] [address]Aziepmxzh [Moles/Vol]4.0 mmol/LNormal3.7-5.1CMadison Health on above:Order Comment: Specimen Type: BLOOD SPECIMENOrdering Facility: [facility] Address:[address] [place], [place] [address]Bcixwrskk By: #### 96872-7 ####[facility] LABCLIA [id number] [place], [place] [address]Ebgfqkd [Mass/Vol]7.1 g/dLNormal6.3-8.0[facility] on above:Order Comment: Specimen Type: BLOOD SPECIMENOrdering Facility: [facility] Address:[address] [place], [place] [address]Performed By: #### 79996- 8 ####[facility] LABCLIA [id number] [place], [place] [address]Rtazov [Moles/Vol]134 mmol/XKke036-458AsaogafvyOhioHealth Grady Memorial Hospital on above:Order Comment: Specimen Type: BLOOD SPECIMENOrdering Facility: [facility] Address:[address] [place], [place] [address]Performed By: #### 48958-5 ####[facility] LABCLIA [id number] [place], [place] [address]Qbiy nitrogen [Mass/Vol]8 mg/dL Normal7-21[facility] on above:Order Comment: Specimen Type: BLOOD SPECIMENOrdering Facility: [facility] Address:[address] [place], [place] [address]Performed By: #### 37111-6 ####[facility] LABCLIA [id number] [place] [address] Ferritin SerPl-mCncon 72-29-9991Vgmtzybv [Mass/Vol]73.8 ng/kVBnuuom98.7-205.1 [facility] on above:Order Comment: Specimen Type: BLOOD SPECIMENOrdering Facility: [facility] Address:[address] [place], [place] [address]Performed By: #### 35377-5, 2276-4, 3016-3 ####[facility] LABCLIA [id number] [place] [address] [place] AMERICAFolate SerPl-mCncon 64-57-2542Rctrtc [Mass/Vol] ng/mLNormal>4.7CMadison Health on above:Order Comment: Specimen Type: BLOOD SPECIMENOrdering Facility: [facility] Address:[address] [place], [place] [address]Result Comment: A result of > 20 ng/mL is not necessarily indicative of a pathologic or treatable condition: it reflects a limitation of the test methodology. Assay reference range: 4.8 to 24.2 ng/mL. Suitable for detection of folate deficiency. Reference: Folate III (Folate III) [package insert V 1.0 Finnish]. [facility], [place], [place]: February 2015.Performed By: #### 2132-9, 2284-8 ####[facility] LABCLIA [id number] [place] [address] [place] AMERICAIron and Iron binding capacity panelon 05-28-2024 Iron [Mass/Vol]68 ug/rGMmbpkl17-821ArjahuhcnOhioHealth Grady Memorial Hospital on above: Order Comment: Specimen Type: BLOOD SPECIMENOrdering Facility: [facility] Address:[address] [place], [place] [address]Performed By: #### 36761- 8, 6-4, 6-3 ####[facility] LABIA [id number] [place] [address] [facility] OF AMERICAIron binding capacity [Mass/Vol]367 ug/vHWeriju370-794WwbplmeuaOhioHealth Grady Memorial Hospital on above: Order Comment: Specimen Type: BLOOD SPECIMENOrdering Facility: [facility] Address:[address] [place], [place] [address]Performed By: #### 96735- 8, 6-4, 6-3 ####[facility] LABIA [id number] [place] [address] [facility] OF AMERICAIron/TIBC [Molar ratio]18.5 %Utcvub98.0-57.0[facility] on above:Order Comment: Specimen Type: BLOOD SPECIMENOrdering Facility: [facility] Address:[address] [place], [place] [address]Performed By: #### 91641- 8, 2275-4, 3016-3 ####[facility] LABCLIA [id number] [place] [address] [place] [facility] SOUTHTSH SerPl-aCncon 74-06-9283APL Qn2.940 m[IU]/LNormal0.270-4.200D[facility] Ridge Medical CenterComment on above:Order Comment: Specimen Type: BLOOD SPECIMENOrdering Facility: [facility] Address:[address] [place], [place] [address]Result Comment: If the patient is , TSH reference range varies by gestational period: First Trimester (weeks 9-12): 0.180-2.990 mIU/L Second Trimester: 0.110-3.980 mIU/L Third Trimester: 0.480-4.710 mIU/L Danny Varela et al. A Practical Approach for the Verifications and Determination of Site- and Trimester-Specific Reference Intervals for Thyroid Function tests in . Thyroid, 2019:29:3:412-420.Saeed Pan, et al. 2017 Guidelines of the [place] Thyroid Association for the Diagnosis and Management of Thyroid Disease during and the . Thyroid, 2017:27:3:315-389. Performed By: #### 56900-6, 2276-4, 3016-3 ####[facility] LABIA [id number] [place] [address] [place] AMERICAVit B12 SerPl-mCncon 35-07-8451Mnesrcjua (Vitamin B12) [Mass/Vol]487 pg/kPXihiyu925-7719Cxetiskea Clinic ClevelandComhurley medical center on above:Order Comment: Specimen Type: BLOOD SPECIMENOrdering Facility: [facility] Address:[address] [place], [place] [address]Performed By: #### 2132-9, 2284-8 ####[facility] LABIA [id number] [place] [address] [place] AMERICABhCG Quanton 92-86-8039RVO.beta subunit Qn101 m[IU]/mLHigh1-3FUK HealthcareComment on above:Result Comment: 'F NON < 1 - 3' ' 0.2 - 1 WEEK = 5 TO 50' ' 1 - 2 WEEKS = 50 - 500' ' 2 - 3 WEEKS = 100 - 5000' ' 3 - 4 WEEKS = 500 - 02754' ' 4 - 5 WEEKS = 1000 - 22687' ' 5 - 6 WEEKS = 81589 - 294754' ' 6 - 8 WEEKS = 93661 - 792550' ' 8 - 12 WEEKS = 56381 - 963491'Performed By: #### 2324570 #### [facility] [address] [place], [place] [address]DLKSUP V LEIDEN MUTATIONon 79-12-7170JCD FACTOR V LEIDEN MUTATIONComment.[facility] HealthcareComment on above:Result: c.1601G>A (p.Ued451Eow) - Not Detected This result is not associated with an increased risk for venous thromboembolism. See Additional Clinical Information and Comments. Additional Clinical Information: Venous thromboembolism is a multifactorial disease influenced by genetic, environmental, and circumstantial risk factors. The c.1601G>A (p. Nvs986Ixh) variant in the F5 gene, commonly referred [...] c.*97G>A variant and Factor V Leiden (PMID: 63903495). Additional risk factors include but are not [...] health care providers to discuss results at [phone] (2968). Test Details: Variant Analyzed: c.1601G>A (p. Wvo278Bvj), referred to as Factor V Leiden Methods/Limitations: [...] developed and its performance characteristics determined by [facility]. It has not been cleared or approved by the Food and Drug Administration. References: Jomar S, Loren BLANDON, Thiago R, Solo WW, Jose JH; ACMG Professional Practice and Guidelines Committee. Addendum: [place] [employer] consensus statement on factor V Leiden mutation testing. Nisha Med. 2020Jul 02. doi: 10.1038/n00185-503-90993-v. PMID: 29085796. Naina POWERS. Factor V Leiden Thrombophilia. 1998September 10 (Updated 2017May 03). In: Emeterio MP, Radha HH, Clayton RA, et al., editors. Cassie(R) (Internet). [place] ([place]): [facility]; 4267-1226. Available from: https://www.ncbi.nlm.nih.gov/books/ECS7276/ Hudson Guzman, Loren BLANDON, Trent X, Margarito B, Jo-Ann EB, Lena P, Rhiannon CS; ACMG Laboratory Arc Welding Machine Operator Committee. Venous thromboembolism laboratory testing (factor V Leiden and factor II c.*97G>A), 2018 update: a technical standard of the [place] [employer] and Genomics (ACMG). Nisha Med. 2017;20(12):2521-6674. doi: 10.1038/v03114-721-1756-u. Epub 2017Feb 01. PMID: 78149391. [facility] REVIEWED BYComment.NOMS HealthcareComment on above:Technical Component performed at [facility] Professional Component performed by: [facility] Rosa Isela Lee, Ph.D., [facility] Director, Molecular Genetics [address] [facility] Performed at: - [facility] [address] [facility], [facility], [place] [address] Rack Pusher: Kolton Storm [facility], Phone: [phone] [facility] 65-06-4229IRHPXexybhnwh (HEMASA) SANNA RENDON ([id number]) 1985 F Date Time Provider Department 05/14/24 RACHAEL JOHNSON HEMASA During your visit today, [...] for deficiency. She is aware if her administrative secretary or PCP request any additional testing, we [...] Date Reviewed: 04/28/2024 Reviewed by: Katherine Negrete APRN.TOILET PRODUCTS MOLDER - Fully Assessed Reason for Visit: Patient [...] 08/01/2022 Encounter Status:Closed by RACHAEL JOHNSON on 05/14/24[facility] MISCELLANEOUS TESTon 13-44-5856LDUGVMTLUFJMG TESTCOMMENT.NOMS HealthcareComment on above:Test Ordered: [id number] , ID Ab Cytomegalovirus (CMV) Ab, IgG [...] 0.9 - 1.1 Positive >1.1 Performed at: [address] [id number] Rack Pusher: Dusty Miles PhD, Phone: [phone] Performed at: [address] [id number] Rack Pusher: China Ching MD, Phone: [phone] , Infectious Disease Antibody Profile CLINISYNCNOMS HealthcareNo Panel Informationon 26-80-4584KIDEDVCDFVAZN HealthcarePROTEIN C-FUNCTIONALon 02-32-2204WTMDDBF C-ZDXFPSINMW680 %73 - 180 % NOMS HealthcareComment on above:Performed at: [address] [id number] Rack Pusher: China Ching MD, Phone: [phone] PROTEIN S-ANTIGENon 69-52-6925DGUFPRF S, WGZX416 %61 - 136 %[facility] PROTEIN S, TOTAL96 %60 - 150 %NOMS HealthcareComment on above:This test was developed and its performance characteristics determined by [facility]. It has not been cleared or approved by the Food and Drug Administration. [facility] ANTITHROMBIN ACTIVITYon 55-50-1317Xsbsbuwrvgsuzv and review of laboratory resultsAbnormalNOSaint John's Health SystemTBH ANTITHROMBIN UZHKDSER296 %Ogztnwmx16 - 135 % NOMS HealthcareComment on above:An elevated antithrombin activity is of no known clinical significance. Direct Xa inhibitor anticoagulants such as rivaroxaban, apixaban and edoxaban will lead to spuriously elevated antithrombin activity levels possibly masking a deficiency. Performed at: [address] [id number] Rack Pusher: China Ching MD, Phone: [phone] ALL IMMUNOGLOBULIN Koffi 63-68-4303TAI IMMUNOGLOBULIN G, QN913 mg/dL586 - 1602 mg/dLNOTN HealthcareComment on above:Performed at: [address] [id number] Rack Pusher: Dusty Miles PhD, Phone: [phone] ALL IMMUNOGLOBULIN Mon 25-18-5327OPU IMMUNOGLOBULIN M, Q177 mg/dL26 - 217 mg/dL NOM HealthcareComment on above:Performed at: [address] [id number] Rack Pusher: Dusty Miles PhD, Phone: [phone] [facility] HOMOCYSTEINEon 51-78-1847MZOHMOVU(E)INE5.8 umol/L0.0 - 14.5 umol/LNOMS HealthcareNo Panel Informationon 26-37-9038FPYYICYHYQPOT HealthcareALL CBC WITH AUTO DIFFon 34-21-9939AOFTPOLJC ABSOLUTE XFJI2NJJI HealthcareBasophils/100 WBC (Bld)0.2 %0.2 - 2.0 %NOMS HealthcareEosinophils/100 WBC (Bld)0.7 %Low0.9 - 7.0 % NOM HealthcareErythrocyte distribution width (RBC) [Ratio]13 %11.0 - 15.0 %NOMS HealthcareHematocrit (Bld) [Volume fraction]35.6 %Low36.0 - 48.0 %NOM HealthcareHemoglobin (Bld) [Mass/Vol]12.3 g/dL12.0 - 16.0 g/dLNOSaint John's Health System IMMATURE GRANULOCYTES ABS AUTO0.04HighNOTN HealthcareImmature granulocytes/100 WBC (Bld)0.4 %0.0 - 0.5 %[facility] John'sInterpretation and review of laboratory resultsAbnormalNOTN HealthcareLYMPHOCYTES ABSOLUTE AUTO2.5NOMS Healthcare Lymphocytes/100 WBC (Bld)26.1 %20.5 - 60.0 %[facility] CenterH (RBC) [Entitic mass]31 pg26.7 - 34.0 pgMetropolitan Saint Louis Psychiatric CenterHC (RBC) [Mass/Vol]34.6 g/dL29.9 - 35.2 g/dLMetropolitan Saint Louis Psychiatric CenterV (RBC) [Entitic vol]89.7 fL81.0 - 99.[address] John's MONOCYTES ABSOLUTE AUTO0.6NOMS HealthcareMonocytes/100 WBC (Bld)6 %1.7 - 12.0 % [facility] John'sNEUTROPHILS ABSOLUTE AUTO6.3NOMS HealthcareNeutrophils/100 WBC (Bld)66.6 %43.0 - 75.0 %[facility]. John'sPlatelet mean volume (Bld) [Entitic vol] 9.9 fL9.5 - 13.5 fLNOTN HealthcareTBH EO #0.1NOMS HealthcareTBH ZRC503OBZV HealthcareTB RBC3.97LowNOMS HealthcareTB WBC9.4NOMS HealthcareCLINISYNCNKansas City VA Medical CenterCCF APTTon 00-74-7093nDVD Coag (Bld) [Time]28.5 [facility] Health CenterLon 05-10-2024 Specimen: [id number] Received: 05/12/24120 Status: BALDOMERO Andrade Num: [id number] Spec Type: Surgical Subm Dr: Wilton Herrmann Tissues: A Placenta - Other than 3rd Trimester (14 WK PLACENTA) Procedures: HE/3, Gross/Micro L4 Age/ Patient Sex Location Account Attending Physician Sanna Rendon 38/F LABELL [id number] Wilton Herrmann SPEC NUM: [id number] RECD: 05/12/24-1209 STATUS: BALDOMERO ANDRADE NUM: [id number] AMARILYS: 05/10/24- SUBM DR: Wilton Herrmann ENTERED: 05/12/24-[address] [facility] [address]: Piyush,Lab SPEC TYPE: Surgical DEPT: [facility] ENTERED BY: [id number] RECV BY: [id number] ORDERED: HE/3, Gross/Micro L4 ORDERED: HE/3, Gross/Micro [...] [id number] Received: 05/12/24 Status: BALDOMERO Andrade Num: [id number] Spec Type: Surgical Subm Dr: Wilton Herrmann Tissues: A Placenta - Other than 3rd Trimester (14 WK PLACENTA) Procedures: /, Gross/Micro L4 Patient: Sanna Rendon [id number] (Continued) Specimen: [id number] Received: 05/12/24 (Continued) Gross Description (Continued) Signed (signature on file) Vivi Hill MD 05/13/24 1605 Specimen: [id number] Received: 05/12/24 Status: BALDOMERO Andrade Num: [id number] Spec Type: Surgical Subm Dr: Wilton Herrmann Tissues: A Placenta - Other than 3rd Trimester (14 WK PLACENTA) Procedures: HE/3, Gross/Micro L4 Patient: Sanna Rendon [id number] (Continued) Specimen: [id number] Received: 05/12/24 (Continued) Gross [...] and uniform. Cassettes: A1 Rolled membrane A2-A3 Space Operations sections of placenta (3, ss, BS25-17 A) JG . CPT Codes 37434 Specimen: [id number] Received: 05/12/24-1209 Status: BALDOMERO Andrade Num: [id number] Spec Type: Surgical Subm Dr: Wilton Herrmann Tissues: A Placenta - Other than 3rd Trimester (14 WK PLACENTA) Procedures: Dann LANDEROS/Rah L4 Patient: Sanna Rendon [id number] (Continued) Signed (signature on file) Vivi Hill MD 05/13/24 1605[facility] Physician GroupMHPT FIBRINOGENon 05-10-2024 HKEJEOAHJV085 mg/dL200 - 400 mg/dLNOTN HealthcareNo Panel Informationon 51-24-1752UYSHCPIWNXAMO HealthcareSROH PROTHROMBIN TIME INR W/O COUMon 61-89-1587RE Coag (PPP) [Time]10.3 sNOMS [facility] Children'S HospitalTB INR0.97NOSaint John's Health System Comment on above:DESIRED INR: 2.0-3.0 CONDITIONS NOT LISTED BELOW 2.5-3.5 FOR PROSTHETIC HEART VALVE REPLACEMENT 2.5-3.5 RECURRENT THROMBOSIS US PELVISon 43-27-0509QqlRhodes, [place] [address] Ultrasound Report Signed Patient: SANNA RENDON MR#: [id number] : 1985 Acct:[id number] Age/Sex: 38 / F ADM Date: Loc: [facility] 258-[address]: Wilton Herrmann D.O. Ordering Physician: Wilton Herrmann D.O. Date of Service: 05/10/24 Procedure(s): US pelvis Accession Number(s): [id number] cc: Wilton Herrmann D.O.; PENELOPE CASAS [place] [phone] Patient Name: SANNA RENDON MRN: [id number]:[id number] date: 1985 Sex: F Assigned Patient Location: [facility] Current Patient Location: [facility] Accession/Order Number: [id number] Exam Date: 05/10/2024 14:36 Report Date: 05/10/2024 [...] M.D. Signed By: 05/10/241603 DD/ 01 TD/TT: Staff Mechanical Engineer:ELVERadiologPacheco morales, - 05/10/[address] [address] Ultrasound Report Signed Patient: SANNA RENDON MR#: [id number] : 1985 Acct:[id number] Age/Sex: 38 / F ADM Date: Loc: [facility] 258-[address]: Wilton Herrmann D.O. Ordering Physician: Wilton Herrmann D.O. Date of Service: 05/10/24 Procedure(s): US pelvis Accession Number(s): [id number] cc: Wilton Herrmann D.O.; PENELOPE CASAS [place] [phone] Patient Name: SANNA RENDON MRN: [id number] date: 1985 Sex: F Assigned Patient Location: [facility] Current Patient Location: [facility] Accession/Order Number: [id number] Exam Date: 05/10/2024 14:36 Report Date: 05/10/2024 [...] M.D. Signed By: 05/10/241603 DD/ 01 TD/TT: Staff Mechanical Engineer: SHILOH BrowningRadiology Study observation (narrative)NOMS HealthcareUS PELVIS Ordered By: Radiologist Radiology on 51-37-5649QAGY Healthcare Work Phone: US for pregnancyon 58-69-8705Ifs[address] [address] Ultrasound Report Signed Patient: SANNA RENDON MR#: [id number] : 1985 Acct:[id number] Age/Sex: 38 / F ADM Date: Loc: [facility] 258-[address]: Wilton Herrmann D.O. Ordering Physician: Wilton Herrmann D.O. Date of Service: 05/10/24 Procedure(s): US OB limited Accession Number(s): [id number] cc: Wilton Herrmann D.O.; PENELOPE CASAS [address] [address] Patient Name: SANNA RENDON MRN: [id number] date: 1985 Sex: F Assigned Patient Location: [facility] Current Patient Location: [place] Accession/Order Number: [id number] Exam Date: 05/10/2024 08:30 Report Date: 05/10/2024 [...] M.D. Signed By: 05/10/24928 DD/ 5 TD/TT: Staff Mechanical Engineer:ELVERadiologcarmen, Radiologist, - 05/10/2024 The [place] [id number] Ultrasound Report Signed Patient: SANNA RENDON MR#: [id number] : 1985 Acct:[id number] Age/Sex: 38 / F ADM Date: Loc: [facility] 258-[address]: Wilton Herrmann D.O. Ordering Physician: Wilton Herrmann D.O. Date of Service: 05/10/24 Procedure(s): US OB limited Accession Number(s): [id number] cc: Wilton Herrmann D.O.; PENELOPE CASAS [place] [address] Patient Name: SANNA RENDON MRN: [id number] date: 1985 Sex: F Assigned Patient Location: [facility] Current Patient Location: [place] Accession/Order Number: [id number] Exam Date: 05/10/2024 08:30 Report Date: 05/10/2024 [...] M.D. Signed By: 05/10/24928 DD/ 5 TD/TT: Staff Mechanical Engineer: SHILOH HealthcareRadiology Study observation (narrative)SHILOH HealthcareUS for pregnancyOrdered By: Radiologist Radiology on 83-42-2456[facility] Work Phone: us OB TRANSVAGINALon 53-93-7164TM OB TRANSVAGINALTITLE OF EXAM: OB Ultrasound: REASON [...] time of the exam. Dictated and transcribed 05/06/24dpd This report has been electronically signed and approved by the interpreting radiologist.NormalNot AvailableComment on above:Order Comment: US OB VIABILITY PLEASE PERFORM TRANSVAGINAL ULTRASOUND IF INDICATED Patient's last menstrual period was 01/29/2024.Urinalysis macro (dipstick) panel (U)on 00-30-7727Imibtyvml, UANegativeNegative - 4(70) +++ mg/dLNOMS Healthcare Blood, [...] - 12 mg/dLNOMS HealthcareNOMS Healthcare BOX TESTon 99-83-6662OMJ TEST SENT OUTYNOMS QokmythlwlEFE7NUHLUVMAA Healthcare TXB98406/13/23NOMS HealthcareUNITY BOX CLINISYNCNOMS HealthcareTBH DRUG SCREEN RAPID (URINE)on 30-71-6603ETFEBYDJWYA SCREEN URINENegativeNEGATIVENOMS HealthcareBARBITURATES SCREEN URINENegative NEGATIVENOMS HealthcareBENZODIAZEPINES [...] TRICYCLIC ANTIDEPRESSANT URINENegativeNEGATIVENOMS HealthcareCLINISYNCNOMS HealthcareUS OB TRANSVAGINALon 07-68-8106[place], [place] [address] Ultrasound Report Signed Patient: Sanna Rendon MR#: [id number] : 1985 Acct:[id number] Age/Sex: 38 / F ADM Date: 04/04/24 Loc: N[facility] Attending Dr: Wilton Herrmann D.O. Ordering Physician: Wilton Herrmann D.O. Date of Service: 04/04/24 Procedure(s): US OB transvaginal Accession Number(s): [id number] cc: Wilton Herrmann D.O.; PENELOPE CASAS [address] [address] Patient Name: SANNA RENDON MRN: [facility]:[id number] date: 1985 Sex: F Assigned Patient Location: [facility] Current Patient Location: Accession/Order Number: [id number] Exam Date: 04/04/2024 09:43 Report Date: 04/05/2024 [...] Dictated By: Humera Kim M.D. Signed By: 04/05/24 0442 DD/ 0439 TD/TT: Staff Mechanical Engineer:MANUELHRadiology, Radiologist, MD - 04/05/2024 [place] [address] Ultrasound Report Signed Patient: Sanan Rendon MR#: [id number] : 1985 Acct:[id number] Age/Sex: 38 / F ADM Date: 04/04/24 Loc: [facility] Attending Dr: Wilton Herrmann D.O. Ordering Physician: Wilton Herrmann D.O. Date of Service: 04/04/24 Procedure(s): US OB transvaginal Accession Number(s): [id number] cc: Wilton Herrmann D.O.; PENELOPE CASAS [place] [id number] Patient Name: SANNA RENDON MRN: [facility]:[id number] date: 1985 Sex: F Assigned Patient Location: [facility] Current Patient Location: Accession/Order Number: [id number] Exam Date: 04/04/2024 09:43 Report Date: 04/05/2024 [...] M.D. Signed By: 04/05/24441 DD/ 8 TD/TT: Staff Mechanical Engineer: SHILOH HealthcareRadiology Study observation (narrative)[facility] OB TRANSVAGINALOrdered By: Radiologist Radiology on 43-95-9632CYFRMercy Hospital St. John's Work Phone: HCG ( test) Ql (U)on 90-50-3111Gdbdhdoulugclb and review of laboratory resultsAbnormalNOMS HealthcarePreg Test, UrPositive NegativeNOSullivan County Memorial Hospital HealthcareUrinalysis macro (dipstick) panel (U)on 80-80-5615Xhgkclofq, UANegativeNegative - 4(70) +++ mg/dLNOTN HealthcareBlood, UANegativeNegative - 50 Max/mcLNOMS HealthcareClarity, UAClearNOMS Healthcare Color, UAYellowNOMS HealthcareGlucose, UANegativeNegative - 2000(110) ++++ mg/dL [facility] HealthcareInterpretation and review of laboratory resultsNormalNOTN HealthcareKetones, UANegativeNegative - 160(16) ++++ mg/dLNOTN Healthcare Leukocytes, UANegativeNegative - 500+++ John/mcLNOTN HealthcareNitrite, UA NegativeNegative - PositiveNOTN HealthcarepH, UA5.55 - 9NOTN HealthcareProtein, UANegativeNegative - 2000(20) ++++ mg/dLNOTN HealthcareSpec Grav, UA1.021 - 1.03 NOMS HealthcareUrobilinogen, UA1.00.2 - 12 mg/dLNOTN HealthcareNOSaint John's Health SystemC Urineon 49-81-1399Efxsqvwl identified Cx Nom (U)Microbiology PROCEDURE: Urine Culture [R1] SOURCE: U CleanCatch BODY SITE: COLLECTED DATE/TIME: 03/01/2024 10:30 EDT RECEIVED DATE/TIME: 03/01/2024 13:48 EDT START DATE/TIME: 03/01/2024 13:48 EDT FREE TEXT SOURCE: Wilton HERRMANN DO, DO, Corey R FINAL REPORTS Final Report [] Verified Date/Time: 03/03/2024 08:52 EST 2,000 cfu/ml Mixed skin contaminants Performing Locations R1: This test was performed at: [facility], [address] [place] [address], [facility] , , AlebwzZcybwaFairfield Medical CenterComment on above:Performed By: #### [id number] #### [facility] [address] [place] [address] 13502LaNI Quanton 52-12-1591RXG.beta subunit Qn747 m[IU]/mLHigh1-3 [facility]cy HealthComment on above:Result Comment: 'F NON < 1 - 3' ' 0.2 - 1 WEEK = 5 TO 50' ' 1 - 2 WEEKS = 50 - 500' ' 2 - 3 WEEKS = 100 - 5000' ' 3 - 4 WEEKS = 500 - 58121' ' 4 - 5 WEEKS = 1000 - 02404' ' 5 - 6 WEEKS = 07782 - 119355' ' 6 - 8 WEEKS = 31736 - 542589' ' 8 - 12 WEEKS = 71873 - 620489'Performed By: #### [id number] #### [facility] [address] [place], [place] [address]FBRVVBOVQMbjorbz By: SYSTEM SYSTEM on 56-68-9845EJA.beta subunit Qn747 m[IU]/mLHigh1 - 3 mIU/mLRemisol ChemComment on above:Result Comment: 'F NON < 1 - 3' ' 0.2 - 1 WEEK = 5 TO 50' ' 1 - 2 WEEKS = 50 - 500' ' 2 - 3 WEEKS = 100 - 5000' ' 3 - 4 WEEKS = 500 - 83160' ' 4 - 5 WEEKS = 1000 - 24200' ' 5 - 6 WEEKS = 58711 - 876047' ' 6 - 8 WEEKS = 51837 - 362171' ' 8 - 12 WEEKS = 99813 - 945568'BhCG Quanton 03-38-1584QDO.beta subunit Qn268 m[IU]/mLHigh1-3FUK HealthcareComment on above:Result Comment: 'F NON < 1 - 3' ' 0.2 - 1 WEEK = 5 TO 50' ' 1 - 2 WEEKS = 50 - 500' ' 2 - 3 WEEKS = 100 - 5000' ' 3 - 4 WEEKS = 500 - 64088' ' 4 - 5 WEEKS = 1000 - 92912' ' 5 - 6 WEEKS = 91935 - 600079' ' 6 - 8 WEEKS = 19179 - 451935' ' 8 - 12 WEEKS = 32047 - 449867'Performed By: #### [id number] #### [facility] [address] [place], [place] [address]FsLJ Quanton 18-64-1098UDT.beta subunit Qn123 m[IU]/mLHigh1-3 [facility] HealthComhur[facility] on above:Result Comment: 'F NON < 1 - 3' ' 0.2 - 1 WEEK = 5 TO 50' ' 1 - 2 WEEKS = 50 - 500' ' 2 - 3 WEEKS = 100 - 5000' ' 3 - 4 WEEKS = 500 - 02918' ' 4 - 5 WEEKS = 1000 - 08872' ' 5 - 6 WEEKS = 50385 - 371582' ' 6 - 8 WEEKS = 14578 - 049051' ' 8 - 12 WEEKS = 77501 - 677116'Performed By: #### [id number] #### [facility] [address] [place], [place] [address]RHEYBICSTFvooaiz By: SYSTEM SYSTEM on 67-41-1214ZRX.beta subunit Qn123 m[IU]/mLHigh1 - 3 mIU/mLRemisol ChemComment on above:Result Comment: 'F NON < 1 - 3' ' 0.2 - 1 WEEK = 5 TO 50' ' 1 - 2 WEEKS = 50 - 500' ' 2 - 3 WEEKS = 100 - 5000' ' 3 - 4 WEEKS = 500 - 81497' ' 4 - 5 WEEKS = 1000 - 21012' ' 5 - 6 WEEKS = 65961 - 254957' ' 6 - 8 WEEKS = 06464 - 055132' ' 8 - 12 WEEKS = 88511 - 575610'YvhL6arj 73-73-0273CiO7x (Bld) [Mass fraction]6.0 %High<=5.9Mercy HealthComment on above:Performed By: #### [id number] #### [facility] [address] [place], [place] [address]RGE Screen 4th Generation wRfxon 83-15-2493JUS 1+2 Ab+HIV1 p24 Ag IA QlNon-ReactiveInvalid Interpretation CodeNon ReactiveMercy HealthComment on above:Result Comment: HIV-1/HIV-2 antibodies and HIV-1 p24 antigen were NOT detected. There is no laboratory evidence of HIV infection. HIV Negative Performed at: [facility] [address] [place], [place] [id number] PhD Jd Garciaformed By: #### [id number] #### [facility] [address] [place], [place] [address]BnFA Quanton 09-63-9029BJA.beta subunit Qn52 m[IU]/mLHigh1-3 [facility] HealthComment on above:Result Comment: 'F NON < 1 - 3' ' 0.2 - 1 WEEK = 5 TO 50' ' 1 - 2 WEEKS = 50 - 500' ' 2 - 3 WEEKS = 100 - 5000' ' 3 - 4 WEEKS = 500 - 28945' ' 4 - 5 WEEKS = 1000 - 29193' ' 5 - 6 WEEKS = 23109 - 042373' ' 6 - 8 WEEKS = 19208 - 409331' ' 8 - 12 WEEKS = 44606 - 500974'Performed By: #### [id number] #### [facility] [address] [place] [address] 12139GUKLUGLGLEhdriva By: SYSTEM SYSTEM on 10-84-4492Vzxmobwkldm [Mass/Vol]225 mg/uWIhcc730 - 200 mg/dLRemisol ChemCholesterol in HDL [Mass/Vol] [...] 3 - 4 WEEKS = 500 - 92911' ' 4 - 5 WEEKS = 1000 - 78628' ' 5 - 6 WEEKS = 63897 - 733861' ' 6 - 8 WEEKS = 63550 - 837159' ' 8 - 12 WEEKS = 43910 - 693501'Triglyceride [Mass/Vol]212 mg/dLHigh <=149mg/dLRemisol ChemTSH Qn5.68 m[IU]/LHigh0.34 - 5.60 mcIU/mLRemisol Chem CHEMISTRYOrdered By: Chelsey Price on 80-35-0536JjM5y (Bld) [Mass fraction]5.9 %Normal<=5.9%[facility] KhkyCciyGMRfpH4jvh 98-43-8409RiC2o (Bld) [Mass fraction]5.9 % Normal<=5.9Mercy HealthComment on above:Performed By: #### [id number] #### [facility] [address] [place], [place] [address]Whdou Panelon 20-11-4481Fubogzzdhze [Mass/Vol]225 mg/dLHigh 120-200Mercy HealthComment on above:Performed By: #### [id number] #### [facility] [address], [place] [address]Ffffgomqvww in HDL [Mass/Vol]40 mg/dLInvalid Interpretation CodeMercy HealthComment on above:Result Comment: '>= 60 LOW RISK' '<= 40 HIGH RISK'Performed By: #### [id number] #### [facility] [address], [place] [address]Echuohlbibt in LDL [Mass/Vol]171 mg/dLHigh<=129Mercy HealthComment on above:Performed By: #### [id number] #### [facility] [address], [place] [address]Kfnajfhypri in VLDL [Mass/Vol]42 mg/dLHigh7-40Mercy HealthComment on above:Performed By: #### [id number] #### [facility] [address] [place], [place] [address]Tvitrjmndxbm [Mass/Vol]212 mg/dLHigh<=149Mercy HealthComment on above:Performed By: #### [id number] #### [facility] [address], [place] [address]BOQds 55-16-1871KVR Qn5.68 m[IU]/LHigh0.34-5.60Mercy HealthComment on above:Performed By: #### [id number] #### [facility] [address] [place], [place] [address]Elmrqasrvz Visit Summaryon 15-81-8545Ozngyxbslx Visit Summary Ambulatory Visit Summary SANNA RENDON [...] EST With: Penelope CASAS DO, FAAFP Where: [facility] [address], [facility] [place] [address]- You Need to Schedule the Following Appointments Follow Up with Penelope CASAS DO, FAAFP, FAM, PED When: In 3 months Where: [address], [facility] [address]- You Need to Complete the Following HgbA1c, [...] virus infection Vaginal marlee (more content not included)...[facility] Family Medicine Office/Clinic Noteon 51-75-2040Pybqbb Medicine Office/Clinic NoteFacurahealth - [facility] Medicine Office/Clinic Note Chief Complaint Patient here [...] 40 mg subcu, continue to follow-up with title specialist 5. Gestational diabetes (O24.419: Gestational diabetes mellitus in , unspecified control) Metformin 500 mg daily XR tabs 2/day per PHYSICIST CRYOGENICS Ordered: HgbA1c HgbA1c HgbA1c HgbA1c 6. Well [...] FAAFP, CHRIS, PED In 3 months [address] [facility], [facility] [address]- Additional Instructions: Patient Education Acute Bronchitis, Adult Problem List/Past Medical History Ongoing Acute (more content not included)...[facility] CompanyComment on above:Result Comment: Electronically Signed By: Penelope [...] Community acquired pneumonia Refills: 5 Pickup at [facility] 1985 New azithromycin (azithromycin 250 mg Tab 5-day Dose Pack (Z-Jonny)) 1 Packets By Mouth As Directed Community acquired pneumonia Duration: 5 Days as directed on package labeling Pickup at [facility] 1985 Unchanged enoxaparin (Lovenox 40 mg/ 0.4 [...] questions or concerns Pharmacy Information [facility] 1985: [address] [place], [place] [id number] [phone] Allergies Milk Products (Illness) ciprofloxacin (Numbness and [...] you for choosing us for your care. [facility] Medicine Office/Clinic Noteon 53-21-4715Xlfube Medicine Office/Clinic NoteVibra [facility] Medicine Office/Clinic Note Chief Complaint SOB and [...] a 38 Years White Female presenting to [facility] with body aches and productive cough [...] puff(s), Inhalation, q6hr, 1 EA, Refill(s) 5, [facility] 1985, 168, cm, 02/01/2414:43:00 EDT, Height/Length Dosing, 101.1, kg, 02/02/24 14:43:00 EDT, Weight Dosing azithromycin, = 1 packet(s), Oral, As Directed, as directed on package labeling, X 5 day(s), # 6 tab(s), Refills(s) 0, Pharmacy: [facility] 1985, 168, cm, 02/02/24 [...] Bernstein MD, FAM, MED Only if needed [address] [phone] Additional Instructions: Problem List/Past Medical History Ongoing [...] Vitamin D, 2000 International_Unit (more content not included)...[facility] CompanyComment on above:Result Comment: Electronically Signed By: Anni Bernstein MD\.br\Date and Time Signed: 02/01/2415:03 EDTMRI Brain w/o Contraston 92-18-0876XCQ Brain w/o ContrastExam Date/Time: 12/06/2023 14:48 EDT [...] Pablo Barker MD Transcribed by: LINDY Technologist: [facility] HospitalCortisolon 77-94-5039Yaxxnvnm [Mass/Vol]12.5 microgram/dLInvalid Interpretation Code 6.2-19.4FUK HealthcareComment on above:Result Comment: Please Note: The reference interval and flagging for this test is for an AM collection. If this is a PM collection please use: Cortisol PM: 2.3-11.9 Performed at: [place] [id number] [place], [place] [id number] PhD Jd Garciaformed By: #### [id number] #### [facility] [address] [place] [address]O9 Freeon 13-46-8966Zhif T3 [Mass/Vol]2.5 pg/mLInvalid Interpretation Code2.0-4.4FUK HealthcareComment on above:Result Comment: Performed at: [facility] [address] [place], [place] [id number] PhD Jd Garciaformed By: #### [id number] #### [facility] [address] [place], [place] [address]Vsqypaeli 38-41-9827Umqysca [Catalytic activity/Vol]38 U/L Kgdftm16-971Ewdqvx[address] [place], [place] [address]Comment on above:Performed By: #### [id number] #### [facility] [address] [place], [place] [address]AZIKOUKKPOyaghiu By: SYSTEM SYSTEM on 97-39-3466Xhvrlvl [Catalytic activity/Vol]38 U/XXfkxct87 - 157 unit/LRemisol ChemCobalamin (Vitamin B12) [Mass/Vol]328 pg/lXKiphdh95 - 1500 pg/mLRemisol ChemCRP [Mass/Vol] 0.2 mg/dLNormal<=1.9mg/dLRemisol ChemFree T4 [Mass/Vol]0.58 ng/dLNormal0.58 - 1.64 ng/dLRemisol ChemTSH Qn4.97 m[IU]/LNormal0.34 - 5.60 mcIU/mLRemisol ChemCRP on 35-31-7048EQM [Mass/Vol]0.2 mg/dLNormal<=1.9[facility] Comment on above:Performed By: #### [id number] #### [facility] [address] [place] [address]Jqjp T4on 90-06-5436Xkau T4 [Mass/Vol]0.58 ng/dLNormal0.58-1.64 [facility]cy HealthComment on above:Performed By: #### [id number] #### [facility] [address] [place] [address] 17[address]GIJOVFZEECZedahyc By: Isha Zheng on 51-84-7601WJA (Bld) [Velocity]18 mm/hNormal0 - 34 mm/[facility] HemeAutoSSSed Rate Automatedon 04-54-1387JYF (Bld) [Velocity]18 mm/hNormal0-34[facility] Comment on above:Performed By: #### [id number] #### [facility] [address] [place], [place] [address]VGRjp 03-50-8807POT Qn4.97 m[IU]/LNormal0.34-5.60Mercy HealthComment on above:Performed By: #### [id number] #### [facility] [address] [place] [address]Vuj B12on 94-42-8403Mednqafgr (Vitamin B12) [Mass/Vol]328 pg/mL Wumryh44-2646Meuzuv [facility] CenterComment on above:Performed By: #### [id number] #### [facility] [address] [address]Pummgc Medicine Office/Clinic Noteon 47-67-8815Pfggoj Medicine Office/Clinic NoteFacurahealth - [facility] Medicine Office/Clinic Note Chief Complaint Right ear [...] Iron deficiency) Mild, as reported by her title specialist, labs from 2022 appear normal 6. Pre-diabetes (R73.03: Prediabetes) Last A1c Continue metformin Nutrition: - Maintain optimal weight - Calorie restriction - Plant-based diet; high polyunsatur (more content not included)...[facility] CompanyComment on above:Result Comment: Electronically Signed By: Jayant YEBOAH, Monica Varela\.cedrick\Date and Time Signed: 11/09/23 15:56 EDTPhysician Referralon 80-55-6378Fhmfhuyjv Referral [id number]#1.00TIFFRegency Hospital CompanyAmbulatory Visit Summaryon 83-68-4920Dtdhrwkeqx Visit Summary JUSTICE SANAN S :1985 Visit Date:10/23/2023 Ambulatory Visit Instructions Your Diagnosis Dysfunction of right eustachian tube Nasal polyps Deviated septum BMI 37.0-37.9, adult Obesity Your Care Team Attending Physician - Shirlene YEBOAH, Lourdes Baltazar Primary Care Physician - Penelope CASAS DO, FAAFP This Is Your Medications List ciprofloxacin-dexamethasone otic (Ciprodex 0.3%-0.1% Susp-Otic) enoxaparin (Lovenox 40 mg/0.4 mL Injection) ergocalciferol (Vitamin D) fluticasone nasal (Flonase 0.05 mg/inh Lomax) metformin (MetFORMIN (Eqv-Glucophage XR) 500 mg oral [...] Penelope CASAS DO, FAAFP [facility] Office/Clinic Noteon 88-39-1654Tfutca Medicine Office/Clinic NoteChief Complaint pt here for [...] Mouth: mucous membranes pink, moist and intact. Briggs posterior oropharynx, no palatal inflammation,uvula midline, no [...] 106.2, kg, 10/23/23 16:55:00 EDT, Weight Dosing [facility] [place] Ambulatory Referral 2. Nasal polyps (J33.9: Nasal polyp, unspecified) pt reported - moved before previous ENT could perform surgery - submitted new referral at this time Ordered: [facility] [place]ulatory Referral 3. Deviated septum (J34.2: Deviated nasal septum) pt reported - moved before previous ENT could perform surgery - see #2 Ordered: [facility] [place]ulatory Referral 4. BMI 37.0-37.9, adult [...] for 7 day(s), 7.5 mL, Refill(s) 0, [facility]/pharmacy #[id number], 168, cm, 10/23/23 16:55:00 EDT, Height/Length Dosing, 106.2, kg, 10/23/23 16:55:00 EDT, Weight Dosing 5. Obesity ( (more content not included)...[facility] Comment on above:Result Comment: Electronically Signed By: Shirlene YEBOAH, Lourdes Baltazar\.br\Date and Time Signed: 10/23/23 17:13 EDTPatient Educationon 06-15-2547Qzhbjda EducationENT Deviated Septum The septum is the [...] specializes in ear, nose, and throat disorders (events traffic controller, or ENT) for more tests and treatment. [...] Follow these instructions at home: ? Take xxhi-rak-sbombwl and prescription medicines only as told by [...] specializes in ear, nose, and throat disorders (events traffic controller, or ENT) for more tests and treatment. This information is not intended to replace advice given to you by your health care provider. Make sure you discuss any questions you have with your health care provider. Document Revised: 12/12/2021 Document Reviewed: 12/12/2021 [employer] Patient Education ? 2022 Giferent. Nasal Polyps Nasal polyps are growths that form in the nose. Inflammation in the nose or sinus openings can leadto changes in the tissue (mucosa) that lines these areas. Long-term inflammation causes the mucosa to grow into a polyp filled with watery mucus. Nasal polyps look like moist, ochoa grapes in the nose. Nasal polyps are not cancer (more content not included)...[facility] Hospital CompanyCT Abdomen/Pelvis w/o Contraston 85-19-7537AX Abdomen/Pelvis w/o Contrast Exam Date/Time: 09/28/2023 19:58 [...] Given? No Oral contrast amount in ml's: 0NormMedina HospitalB hCG Qualon 81-25-0364Iqjl HCG ( test) QlNegativeNoFairfield Medical Center Comment on above:Performed By: #### [id number] #### [facility] [address] [place], [place] [address]DVByy 82-34-9564Jjxcq gap [Moles/Vol]13 mmol/LNormal6-16Mercy HealthComment on above:Performed By: #### [id number] #### [facility] [address], [place] [address]Sodkfzo [Mass/Vol]9.9 mg/dLNormal8.9-11.1FUK HealthcareComment on above:Performed By: #### [id number] #### [facility] [address], [place] [address]Ntexdjda [Moles/Vol]101 mmol/XAcjtbm656-689OqsitzMercy HealthComment on above:Performed By: #### [id number] #### [facility] [address], [place] [address]FS5 [Moles/Vol]25 mmol/NFmpnja03-91BflapfMercy Health Comment on above:Performed By: #### [id number] #### [facility] [address], [place] [address]Gnvqmcuzqp [Mass/Vol]0.9 mg/dLNormal0.5-1.3FUK HealthcareComment on above:Performed By: #### [id number] #### [facility] [address], [place] [address]Sddhpyi [Mass/Vol]94 mg/cAAmislj54-794KmbtrdMercy HealthComment on above:Performed By: #### [id number] #### [facility] [address], [place] [address]Zhjzsvqbf [Moles/Vol]3.6 mmol/LNormal3.5-5.3FUK HealthcareComment on above:Performed By: #### [id number] #### [facility] [address], [place] [address]Gszhkq [Moles/Vol]135 mmol/PZmqnlg762-340SwxsnpMercy HealthComment on above:Performed By: #### [id number] #### [facility] [address], [place] [address]Vjmb nitrogen [Mass/Vol]8 mg/dLNormal5-21Mercy HealthComment on above:Performed By: #### [id number] #### [facility] [address], [place] [address]Eljr nitrogen/Creatinine [Mass ratio]9 No FnuxkXtj81-13SlllmvMercy HealthComment on above:Performed By: #### [id number] #### [facility] [address] [place] [address] 17[address]FBB w/ Auto Diffon 49-77-6850Vdbjtvrtb/100 WBC (Bld)0.7 %Normal 0.0-2.0Mercy HealthComment on above:Performed By: #### [id number] #### [facility] [address] [place] [address] 889[address]Eyxilnuwn/Leukocytes Auto (Bld) [Pure # fraction]0.1 E9/LNormal 0.0-0.2FUK HealthcareComment on above:Performed By: #### [id number] #### [facility] [address] [place] [address]Hasgomklxhk (Bld) [#/Vol]0.0 E9/LNormal0.0-0.5FUK HealthcareComment on above:Performed By: #### [id number] #### [facility] [address] [place] [address] 603[address]Azcuxyrrvfv/100 WBC (Bld)0.5 %Normal0.0-8.0Mercy HealthComment on above:Performed By: #### [id number] #### [facility] [address] [place] [address]Xfqfzahmmdu distribution width (RBC) [Ratio]14.3 %High10.9-14.2 Mercy HealthComment on above:Performed By: #### [id number] #### [facility] [address] [place] [address] 40[address]Smorlfpytj (Bld) [Volume fraction]39.5 %Jqlysk61.0-46.0Mercy HealthComment on above:Performed By: #### [id number] #### [facility] [address] [place] [address] 98[address]Yoxrahuufg (Bld) [Mass/Vol]13.2 g/yFTvclbw53.0-16.0Mercy HealthComment on above:Performed By: #### [id number] #### [facility] [address] [place] [address] 36[address]Nnzextmdcil (Bld) [#/Vol]3.5 E9/LNormal1.0-4.0Mercy HealthComment on above:Performed By: #### [id number] #### [facility] [address] [place] [address] 40947Sedixxnhfoj/100 WBC (Bld)35.6 %Jngudc28.0-50.0Mercy HealthComment on above:Performed By: #### [id number] #### [facility] [address] [place] [address] 28448YVD (RBC) [Entitic mass]29.3 cjNddscd42.0-34.0Mercy HealthComment on above:Performed By: #### [id number] #### [facility] [address] [place] [address] 67476NBLI (RBC) [Mass/Vol]33.5 g/jIIscwkf60.4-36.0Mercy HealthComment on above:Performed By: #### [id number] #### [facility] [address] [place] [address] 78769WKD (RBC) [Entitic vol]87.4 gIAbddbl63.0-100.0Mercy HealthComment on above:Performed By: #### [id number] #### [facility] [address] [place] [address] 16238Xchxooqze (Bld) [#/Vol]0.7 E9/LNormal0.2-1.0Mercy HealthComment on above:Performed By: #### [id number] #### [facility] [address] [place] [address] 83413Nscxljfzcxm (Bld) [#/Vol]5.6 E9/LNormal2.0-7.5FUK HealthcareComment on above:Performed By: #### [id number] #### [facility] [address], [place] [address]Srlyeyrdtdu/100 WBC (Bld)56.4 %Hvyqst87.0-75.0Mercy HealthComment on above:Performed By: #### [id number] #### [facility] [address] [place] [address] 601[address]Zufjgojf mean volume (Bld) [Entitic vol]8.1 fLNormal6.4-10.8 Mercy HealthComment on above:Performed By: #### [id number] #### [facility] [address] [place] [address] 49[address]Tdquzqscp (Bld) [#/Vol]360.0 E9/OTmfuzz655.0-500.0Mercy HealthComment on above:Performed By: #### [id number] #### [facility] [address] [place] [address] 65558LYD (Bld) [#/Vol]4.5 E12/LNormal4.3-5.9Mercy HealthComment on above:Performed By: #### [id number] #### [facility] [address] [place] [address] 52325WPC corrected for nucl RBC Auto (Bld) [#/Vol]9.9 E9/LNormal 4.0-11.0Mercy HealthComment on above:Performed By: #### [id number] #### [facility] [address] [place] [address] 74520POJEWENYVTlzaofs By: SYSTEM SYSTEM on 02-05-2684Mmdrnij [Mass/Vol]4.8 g/dLNormal3.3 - 5.0 gm/dLRemisol ChemAlbumin/Globulin [Mass ratio] 1.6 {ratio}Normal1.1 - 2.2Remisol ChemALP [Catalytic activity/Vol]66 [iU]/d Dhdzoo23 - 98 Int._Unit/LRemisol ChemALT No additional P-5'-P [Catalytic activity/Vol]16 [iU]/dNormal6 - 46 Int._Unit/LRemisol ChemAnion gap [Moles/Vol] 13 mmol/LNormal6 - 16 mEq/LRemisol ChemAST [Catalytic activity/Vol]15 [iU]/d Normal5 - 43 Int._Unit/LRemisol ChemBilirubin [Mass/Vol]0.3 mg/dLNormal0.0 - 1.1 mg/dLRemisol ChemBilirubin.direct [Mass/Vol]0.0 mg/dLNormal0.0 - 0.4 mg/dL Remisol ChemBilirubin.indirect [Mass or moles/Vol]0.3 mg/dLNormal0.1 - 0.9 mg/dL Remisol ChemCalcium [Mass/Vol]9.9 mg/dLNormal8.9 - 11.1 mg/dLRemisol Chem Chloride [Moles/Vol]101 mmol/PObvgnu830 - 111 mmol/LRemisol ChemCO2 [Moles/Vol] 25 mmol/MXbxmdm13 - 31 mmol/LRemisol ChemCreatinine [Mass/Vol]0.9 mg/dLNormal0.5 - 1.3 mg/dLRemisol ZycpxYVN37 mL/min/1.73 p9Wefbzs>=59mL/min/1.73 y2Hythblr ChemGlobulin (S) [Mass/Vol]3.0 g/dLNormal1.4 - 4.0 gm/dLRemisol ChemGlucose [Mass/Vol]94 mg/sTHvujqn60 - 199 mg/dLRemisol ChemLipase [Catalytic activity/Vol]26 U/SBxvbsi10 - 58 unit/LRemisol ChemPotassium [Moles/Vol]3.6 mmol/LNormal3.5 - 5.3 mmol/LRemisol ChemProtein [Mass/Vol]7.8 g/dLNormal6.0 - 7.8 gm/dLRemisol ChemSodium [Moles/Vol]135 mmol/ORzqbqr451 - 145 mmol/LRemisol ChemUrea nitrogen [Mass/Vol]8 mg/dLNormal5 - 21 mg/dLRemisol ChemUrea nitrogen/Creatinine [Mass ratio]9 mg/mgLow10 - 20Remisol ChemConsent for Treatmenton 09-23-6215Wfzases for Treatment [id number]#1.00[facility] HospitalDischarge Instructionson 00-84-5040Dduvmmhas Instructions [id number]#1.00[facility] Clinical Summaryon 41-50-8736TF Clinical Summary [place] [id number] ED Clinical Summary Person Information Name: SANNA RENDON [facility] Age: 37 Years : 1985 Sex: Female Language: Finnish PCP: Penelope CASAS DO, FAAFP Marital Status: Phone: [phone] Visit Id: Visit Reason: Medical problem - [...] 09/28/2023 21:22:15 09/28/2023 21:22:15 09/28/2023 21:22:15 ADDRESS: [address] [place] [phone] PHYS DOC NOTES: MEDICAL INFORMATION: Prescriptions Given: Medications to Continue with No Changes Other Medications enoxaparin (Lovenox 40 mg/0.4 mL Injection) 40 Milligram Subcutaneous every 24 hours. ergocalciferol (Vitamin D) 2,000 International unit By Mouth every week. fluticasone nasal (Flonase 0.05 mg/inh Lomax) 2 Sprays Nasal Inhalation every day. each nostril. metformin (MetFORMIN (Eqv-Glucophage XR) 500 mg oral tablet, extended release) 2 Tablets By Mouth every day. PATIENT EDUCATION INFORMATION: Instructions: Abdominal Pain, Adult Follow up: With: Address: When: Penelope CASAS [address] [place] [address], [address] [place] [id number] Business (1) In 3 days DIAGNOSIS: 1:Abdominal painNoSelect [facility], [facility] CenterED Note-Physicianon 09-28-2023 ED Note-PhysicianPatient was signed [...] understanding agreement this plan is discharged stable condition.[facility] CompanyComment on above:Result Comment: Electronically Signed By: Sidney Daly DO\.br\Date and Time Signed: 09/28/23 21:12 EDTED Note-PhysicianBasic Information Time Seen: Bijan Miramontes PA-C 09/28/2023 18:46 Chief Complaint Pt woke up around 7 am and started getting a pain on R side of belly button. States feels bloated and like her abdomen is coral.Was sent here from [facility] for possible appendicitis. Nausea, denies vomiting. [...] mL, IV, Once Home Flonase 0.05 mg/inh Lomax, 2 spray(s), Nasal, Daily Lovenox 40 mg/0.4 [...] Lab Results No qual (more content not included)...[facility] Hospital CompanyComment on above:Result Comment: Electronically Signed By: Bijan Miramontes PA-C\.br\Date and Time Signed: 09/27/2417:50 EDT\.br\Electronically Co-Signed By: Benny Uribe DO\.br\Date and Time Co-Signed: 09/27/2418:44 EDTED Patient Education Noteon 31-70-8297VH Patient Education NoteGastroenterology Abdominal Pain, Adult Pain [...] these instructions at home: Medicines ? Take kqxx-sqw-aryjcxe and prescription medicines only as told by [...] your condition for any changes. ? Take rywj-hli-zaigacs and prescription medicines only as told by [...] Reviewed: 08/25/2019 Elsevier Patient Education ? 2022 [employer].[facility] ED Patient Summaryon 74-63-1506CJ Patient Summary [address] [address] Patient Discharge Instructions Person Information Name: SANNA RENDON Age: 37 Years Arrival Date: 09/28/2023 18:21:25 Discharge Diagnosis: 1:Abdominal pain Primary Care Physician: PRAVEEN KOPenelope Provider Information Primary Provider: Benny Uribe DO Advanced Balancer:Bijan Miramontes PA-C The exam and treatment you received in the Emergency Department were for an urgent problem and are not intended as complete care. It is important that you follow up with a doctor, nurse practitioner,or physician?s property assistant for ongoing care. If your symptoms [...] Follow-up Instructions: With: Address: When: Penelope CASAS [address] [place] [address], [facility] [place] [address] Business (1) In 3 days In the event that this physician does not participate in your insurance network, please consult with your insurance company to find a nearby participating provider. Patient Education Materials: Abdominal Pain, Adult A MESSAGE TO ALL PATIENTS REGARDING OPIOIDS PRESCRIPTION OPIOIDS: WHAT YOU NEED TO KNOW Prescription opioids can be used to help relieve ckoxzslr-hw-gkhuis pain and are often prescribed following a [...] be struggling with addiction, tell your health ambulatory care coordinator and ask for guidance or call [facility] National Helpline at 1-799-394-[employer]. [employer] Source: Dep (more content not included)...[facility] Family Medicine Office/Clinic Noteon 19-23-3839Cpwhti Medicine Office/Clinic NoteChief Complaint abdominal pain HPI [...] with above documented HPI by emergency medical technician. Portions of this record may have been created with voice recognition artificial intelligence software, specifically Punch!, [employer] and or [employer]. Substitutions may have occurred due to the inherent limitations of voice recognition and artificial intelligence software. Patient is a 37-year-old female who presents to count includes the [facility] care, for right lower quadrant pain, [...] Repeat BP 140/90. 37-year-old female presented to [facility], for right lower quadrant abdominal pain, worseningsymptoms [...] loss. We can o (more content not included)...[facility] CompanyComment on above:Result Comment: Electronically Signed By: CHARLA QUINTEROS, JANET\.br\Date and Time Signed: 09/28/23 18:28 EDTHEMATOLOGYOrdered By: SYSTEM SYSTEM on 10-86-5304Gmybqmvez/100 WBC (Bld)0.7 %Normal0.0 - 2.0 %Remisol HemeBasophils/Leukocytes Auto (Bld) [Pure # fraction]0.1 E9/LNormal0.0 - 0.2 E9/LRemisol HemeEosinophils (Bld) [#/Vol]0.0 E9/LNormal0.0 - 0.5 E9/LRemisol HemeEosinophils/100 WBC (Bld)0.5 % Normal0.0 - 8.0 %Remisol HemeErythrocyte distribution width (RBC) [Ratio]14.3 % High10.9 - 14.2 %Remisol HemeHematocrit (Bld) [Volume fraction]39.5 %Blbpcs68.0 - 46.0 %Remisol HemeHemoglobin (Bld) [Mass/Vol]13.2 g/cNGvffbt53.0 - 16.0 gm/dL Remisol HemeLymphocytes (Bld) [#/Vol]3.5 E9/LNormal1.0 - 4.0 E9/LRemisol Heme Lymphocytes/100 WBC (Bld)35.6 %Adggoq39.0 - 50.0 %Remisol HemeMCH (RBC) [Entitic mass]29.3 lhPmeerr23.0 - 34.0 pgRemisol HemeMCHC (RBC) [Mass/Vol]33.5 g/dL Jvgmvu45.4 - 36.0 gm/dLRemisol HemeMCV (RBC) [Entitic vol]87.4 zYGgchwr20.0 - 100.0 fLRemisol HemeMonocytes (Bld) [#/Vol]0.7 E9/LNormal0.2 - 1.0 E9/LRemisol HemeMonocytes/100 WBC (Bld)6.8 %Normal4.0 - 14.0 %Remisol HemeNeutrophils (Bld) [#/Vol]5.6 E9/LNormal2.0 - 7.5 E9/LRemisol HemeNeutrophils/100 WBC (Bld)56.4 % Upbzym30.0 - 75.0 %Remisol HemePlatelet mean volume (Bld) [Entitic vol]8.1 fL Normal6.4 - 10.8 fLRemisol HemePlatelets (Bld) [#/Vol]360.0 E9/PVbfsjz900.0 - 500.0 E9/LRemisol HemeRBC (Bld) [#/Vol]4.5 E12/LNormal4.3 - 5.9 E12/LRemisol HemeWBC corrected for nucl RBC Auto (Bld) [#/Vol]9.9 E9/LNormal4.0 - 11.0 E9/L Remisol HemeHep Func Panelon 38-35-4624Myumlmu [Mass/Vol]4.8 g/dLNormal3.3-5.0 Mercy HealthComment on above:Performed By: #### [id number] #### [facility] [address] [place], [place] [address]Sftecat/Globulin (S) [Mass conc ratio]1.7Gnthkw9.1-2.2FUK HealthcareComment on above:Performed By: #### [id number] #### [facility] [address] [place], [place] [address]AGE [Catalytic activity/Vol]66 Int._Unit/PFarfnw99-65MvoquvMercy HealthComment on above:Performed By: #### [id number] #### [facility] [address] [place], [place] [address]RAM No additional P-5'-P [Catalytic activity/Vol]16 Int._Unit/L Normal6-46Mercy HealthComment on above:Performed By: #### [id number] #### [facility] [address] [place] [address] 24144NJW [Catalytic activity/Vol]15 Int._Unit/LNormal5-43Mercy HealthComment on above:Performed By: #### [id number] #### [facility] [address] [place] [address]12[address]Pxafiyrtw [Mass/Vol]0.3 mg/dLNormal0.0-1.1FUK HealthcareComment on above:Performed By: #### [id number] #### [facility] [address] [place] [address]Mcdnxivwv.direct [Mass/Vol]0.0 mg/dLNormal0.0-0.4FUK HealthcareComment on above:Performed By: #### [id number] #### [facility] [address] [place] [address]Jvmfnjrgc.indirect [Mass or moles/Vol]0.3 mg/dLNormal0.1-0.9 Mercy HealthComment on above:Performed By: #### [id number] #### [facility] [address] [place] [address]Ghmgxlsy (S) [Mass/Vol]3.0 g/dLNormal1.4-4.0Mercy HealthComment on above:Performed By: #### [id number] #### [facility] [address] [place], [place] [address]Bdtdxtq [Mass/Vol]7.8 g/dLNormal6.0-7.8Mercy HealthComment on above:Performed By: #### [id number] #### [facility] [address] [facility] [place], [place] [address]Uoztej Levelon 75-67-7810Lzcjhb [Catalytic activity/Vol]26 U/L Nnmklh02-00WpehqpMercy HealthComment on above:Performed By: #### [id number] #### [facility] [address] [place], [place] [address]Fvyznsm Educationon 40-36-5207Vlqktpl EducationCardiovascular Hypertension, Adult Hypertension is another name [...] Keep all follow-up visits. Medicines ? Take feto-saf-qenlpms and prescription medicines only as told by [...] blood. ? For m (more content not included)...[facility] Hospital CompanyRAD - Preliminary Cat Scan Reporton 48-07-4796OGH - Preliminary Cat Scan Report [id number]#1.00TIFFNormCherrington HospitalEROLOGYOrdered By: Amanda Siegel on 99-03-3525Oykf HCG ( test) QlNegative (09/28/23 6:59 PM)[facility] SeroUA with Cult Rflxon 46-65-2880Kqoiozovv Ql (U)NegativeNormalNegativeMercy HealthComment on above:Performed By: #### [id number] ####[facility] Qpasfsiywe573 [facility] Healthcare SystemcherelleSATSOP, OHHQ[address]Djsnduw (U)ClearNormalClearMercy HealthComment on above:Performed By: #### [id number] ####[facility] Xovqonynsa[address]Norwalk, [place]Wtzgz (U)ColorlessAbnormalYellowMercy HealthComment on above:Result Comment: Microscopic readings are only performed on those samples that meet specific criteria set forth by [facility].Performed By: #### [id number] ####[place] [address]Nor[place], [place]Rjnorcw Ql (U)Negative NormalNegativeMercy HealthComment on above:Performed By: #### [id number] ####[place] [address] [place], [place] [address]Jezixfowpv Auto test strip (U) [Mass/Vol]NegativeNormalNegativeMercy HealthComment on above:Performed By: #### [id number] ####[place] [address], [place]Rhxmtea Auto test strip Ql (U)NegativeNormalNegativeMercy HealthComment on above: Performed By: #### [id number] ####[facility] Oswvryxudg[address]Norwalk, VP[address]Tmqgrlhxu esterase Auto test strip Ql (U)Negative NormalNegativeMercy HealthComment on above:Performed By: #### [id number] ####[place] [address], [place] [address]Fzjeymx Auto test strip Ql (U)NegativeNormalNegativeMercy HealthComment on above:Performed By: #### [id number] ####[facility] Iepyfnxpfm[address]Norwalk, FZ[address]cA (U)7.0 [pH]Invalid Interpretation Code5.0-9.0Mercy HealthComment on above:Performed By: #### [id number] ####[facility] Mqukxziwrq[address]Norwalk, ZA[address]Entnhgb Ql (U)NegativeNormalNegFostoria City HospitalComment on above:Performed By: #### [id number] ####[facility] Wvfyykknei771 [facility] TO[address]Yzcakkuw gravity (U) [Rel density]1.003Invalid Interpretation Code1.005-1.030[facility] Comment on above:Performed By: #### [id number] ####[facility] Oqjxywudhy772 [facility] [address]Gnzorpfapyle (U) [Mass/Vol]Negative NormalNegativeMercy HealthComment on above:Performed By: #### [id number] ####[facility] Nomd[address] [place], [place] [address]Dabf of Urine collection methodClean CatchRegency Hospital Company Comment on above:Performed By: #### [id number] ####[facility] Qrcvkkpldm552 [facility] HG[address]DAWYBDSDDVJnzzoxr By: SYSTEM SYSTEM on 54-56-6135Sdodjsirb Ql (U)NegativeNormalNegativemg/dLMERCY HOS[facility] [place] UA Auto SSClarity (U) Clear (09/28/23 7:35 PM)NormalClearFTM UA Auto SSColor (U)Colorless 1 *ABN* (09/28/23 7:35 PM)Invalid Interpretation CodeYellowMERCY HOSPITAL TISHOMING[facility] [place] UA Auto SSComment on above:Interpretive Data: Microscopic readings are only performed on those samples that meet specific criteria set forth by [facility].Glucose Ql (U)NegativeNormalNegativemg/dLFT UA Auto SSHemoglobin Auto test strip (U) [Mass/Vol]NegativeNormalNegativemg/dLFT UA Auto SSKetones Auto test strip Ql (U)NegativeNormalNegativemg/dLFT UA Auto SSLeukocyte esterase Auto test strip Ql (U)NegativeNormalNegativeLeu/uLFT UA Auto SS Nitrite Auto test strip Ql (U)NegativeNormalNegativemg/dLFT UA Auto SSpH (U) 7.0 *NA* (09/28/23 7:35 PM)Invalid Interpretation Code5.0 - 9.0[facility] UA Auto SSProtein Ql (U)NegativeNormalNegativemg/dLMERCY HOSPITAL [facility] [place] UA Auto SSSpecific gravity (U) [Rel density] 1.003 *NA* (09/28/23 7:35 PM)Invalid Interpretation Code1.005 - 1.030[facility]A Auto SS Urobilinogen (U) [Mass/Vol]NegativeNormalNegativemg/dLMERCY HOSPITAL [facility] [place] UA Auto SSURINALYSIS Ordered By: Bijan Miramontes on 48-37-1581CG Spec DescClean Catch (09/28/23 7:35 PM)NormalMERCY HOSPITAL [facility]ISHOMING[facility] [place] UA Auto SS eGFRon 80-09-3536bDWM81 mL/min/1.73 j1Zjtfun>=59Fisher [facility] Maryland Medical CenterComment on above:Order Comment: Order added by Discern Expert.Performed By: #### [id number] #### [facility] [address] [place], [place] [address]Gculbpyzbz Visit Summaryon 93-82-4906Entsigsdpe Visit Summary SANNA RENDON :1985 Visit Date:08/03/2023 [...] (Vitamin D) fluticasone nasal (Flonase 0.05 mg/inh Lomax) metformin (MetFORMIN (Eqv-Glucophage XR) 500 mg oral [...] months Where: [address], [place] [address]- You Need to Complete the Following HgbA1c, [...] Unchanged fluticasone nasal (Flonase 0.05 mg/ inh Lomax) 2 Sprays Nasal Inhalation Every day each [...] ? Walking a mile (more content not included)...[facility] Medicine Office/Clinic Noteon 28-41-7798Acnqhr Medicine Office/Clinic NoteChief Complaint Wants to discuss [...] comfortable with plan. PNMV Ordered: A1c POC 61853 Total time spent preparing the chart, conducting [...] FAAFP, FAM, PED In 4 months [address] [facility], [place] [address]- Additional Instructions: Patient Education Exercising to Lose Weight Problem Lis (more content not included)...[facility] Comment on above:Result Comment: Electronically Signed By: [...] health care provider or diet and nutrition associate (dietitian). This may include: ? Eating fewer [...] regular exercise is e (more content not included)...[facility] Educationon 32-40-1687Mfypetz EducationEndocrinology Blood Glucose Monitoring, Adult Monitoring your [...] meter by following in (more content not included)...[facility] CompanyLab Reportson 41-39-3623Iuc Reports [id number] HospitalConsultation Noteon 46-80-8002Rvxczlxzfppy Note [id number]#1.00[facility] HospitalAmbulatory Visit Summaryon 13-68-7295Oxrobhjmhy Visit Summary SANNA RENDON :1985 Visit Date:05/25/2023 [...] EDT With: Penelope CASAS DO, FAAFP Where: [facility] Family Medicine Office/Clinic Noteon 39-68-3752Lgfyya Medicine Office/Clinic NoteChief Complaint States she is [...] Benadryl. 2. Dyshidrotic eczema (L30.1: Dyshidrosis [pompholyx]) Ooeh-jaz-ppahthc hydrocortisone cream 1% or 2.5% as directed. [...] FAAFP, FAM, PED In 2 months [address] [facility], [place] [address]- Additional Instructions: Patient Education Eustachian Tube Dysfunction Dyshidrotic Eczema Allergies, Tadeo (more content not included)...[facility] Comment on above:Result Comment: Electronically Signed By: [...] ears completely after. General instructions ? Take euje-cyn-oklpflu and prescription medicines only as told by [...] content not included)...[facility] Urineon 89-17-6733Vzjoqqpj identified Cx Nom (U) Microbiology PROCEDURE: Urine [...] This test was performed at: [facility], [address] [place] [address], [address]- , , FiadmrUnttmdMercy HealthComment on above:Performed By: #### [id number] ####[address] [address]Jigvfxs for Treatmenton 35-77-1536Towsbeh for Treatment [id number]#1.00TIFFNormMedina HospitalUrinalysison 62-99-0777Sckscapv LM Ql (Urine sed)TRACENormalTraceMercy HealthComment on above:Performed By: #### [id number] ####[address] [address]Iuvtvwwnz Ql (U) NegativeNormalNegFostoria City HospitalComment on above:Performed By: #### [id number] ####[address] [address]Mrhaqpx (U)CLOUDYAbnormalClearFUK HealthcareComment on above:Performed By: #### [id number] ####[address] [address]Avcpn (U)YELLOWNormalYellowMercy HealthComment on above:Performed By: #### [id number] ####[address] [address]Hqmxkaykiv cells.squamous LM.HPF (Urine sed) [#/Area]/[HPF]Normal0-2Fisher [facility] Maryland Medical CenterComment on above:Performed By: #### [id number] ####[address] [address]Kucvqln Test strip (U) [Mass/Vol]NegativeNormal NegativeMercy HealthComment on above:Performed By: #### [id number] ####[address] [address] Hemoglobin Ql (U)NegativeNormalNegFostoria City HospitalComment on above:Performed By: #### [id number] ####[facility] [address] [address]Mzzmtsw (U) [Mass/Vol]NegativeNormalNegativeMercy HealthComment on above:Performed By: #### [id number] ####[address] [address] [place].plasma/[place].RBC (Bld) [Mass ratio]9-8Fktwzj8-6Dvfftq [facility] CenterComment on above:Performed By: #### [id number] ####[place] [address] [address]Fkxdmaf Ql (U)NegativeNormal NegativeMercy HealthComment on above:Performed By: #### [id number] ####[address] [address]bL (U)6.0 [pH]Invalid Interpretation Code5.0-9.0Mercy HealthComment on above:Performed By: #### [id number] ####[address] [address]Fkxtjar (U) [Mass/Vol]NegativeNormal NegativeMercy HealthComment on above:Performed By: #### [id number] ####[address] [address] Specific gravity (U) [Rel density]<=1.005Invalid Interpretation Code1.005-1.030 [facility] HealthComment on above:Performed By: #### [id number] ####[address] [address]Ktsk of Urine collection methodClean CatchNormalMercy HealthComment on above:Performed By: #### [id number] ####[address] [address]Gdkueofmzawl Qn (U)0.2 {Nicole'U}/dLNormal0.0-1.0 [facility] HealthComment on above:Performed By: #### [id number] ####[facility] [address]omgbzmvg[address] [place], [place] [address]OOG Auto Ql (U)TRACEAbnormalNegativeMercy HealthComment on above: Performed By: #### [id number] ####[facility] [address] [place], [place] [address]RIH LM.HPF (Urine sed) [#/Area]7-2Ttywun6-9Xbdpel [facility] Medical CenterComment on above:Performed By: #### [id number] ####[facility] [address] [place], [place] [address]Olzyahybpf Visit Summaryon 53-52-6116Jqtqjsxwhw Visit Summary SANNA RENDON :1985 Visit Date:04/27/2023 [...] EST With: Penelope CASAS DO, FAAFP [facility] CHEMISTRYOrdered By: SYSTEM SYSTEM on 62-92-1341TBM Qn4.04 m[IU]/LNormal0.34 - 5.60 mcIU/mLRemisol ChemFamily Medicine Office/Clinic Noteon 92-48-5217Ovlwte Medicine Office/Clinic NoteChief Complaint Since last Sunday has been having joint pain with burning sensation and has been having diarrheawith stomach pain. States her kids are sick. Also has been having burning in her nipples, she is . Wants her thyroid checked. History of Present Illness Children are sick at home and has been having diarrhea since Sunday before , nonbloody with some associated stomach pain. She has been having some burning in her nipples when she is breast-feeding and wants her thyroid checked. Muscle aches and pains like flu Still breast feeding. No loss of taste nor smell. [id number] while taking Glucophage XR 500 mg p.o. [...] Push fluids and Tylenol and or ibuprofen ogue-wkw-xcbjpor as directed. Patient does not appear ill [...] Your BMIand weight manag (more content not included)...[facility] CompanyComment on above: Result Comment: Electronically Signed By: PRAVEEN RESENDEZ FAAFP, Penelope Tony\.br\Date and Time Signed: 04/27/23 12:53 ESTPatient Educationon 75-49-0006Nvgqrcl Education Endocrinology Diabetes Mellitus and Exercise Exercising [...] plan? Your health care provider or certified pediatric nurse practitioner can help you make a plan for [...] stroke). Where to find more information ? [place] [employer]: www.diabetes.org Summary ? Exercising regularly is important for overall health, especially for people who have diabetes mellitus. ? Exercising has many health benefits. It increases muscle strength and bone density and reduces body fat and stress. It also lowers and controls blood glucose. ? Your health care provider or certified pediatric nurse practitioner can help you make an activity plan [...] provider. Document Revised: 01/12/2020 Document Reviewed: 01/12/2020 [employer] Patient Education ? 2022 [employer] Preventing Hypoglycemia Hypoglycemia occurs when the level of sugar (glucose) in the blood is too low. Hypoglycemia can happen in people who do or do not have diabetes (diabetes (more content not included)...NormalMercy HealthTSHon 02-28-2464BEH Qn 4.04 m[IU]/LNormal0.34-5.60Mercy HealthComment on above:Performed By: #### [id number] ####[facility] [address]xsvvkjmsw[address] [place], [place] [address]Bzaxpbvrml Visit Summaryon 05-64-0486Swpechtnzg Visit Summary JUSTICE SANNA Guzman :1985 Visit Date:02/15/2023 Ambulatory Visit Instructions Your [...] FAAFP, Penelope Tony, FAM, PED When: In 2 months Where: [address], [place] [address]- You Need to Complete the [...] miscarriage Suspected COVID-19 virus infection Vaginal tabitha [facility] Medicine Office/Clinic Noteon 26-43-5620Vsotjv Medicine Office/Clinic NoteChief Complaint States since Sunday evening her right ear is draining and is a little painful 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 She is continuing 500 mg of [...] Contact Information PRAVEEN Johnson (more content not included)...[facility] CompanyComment on above:Result Comment: Electronically Signed By: Penelope [...] cannot use soap and water, use hand head rose grower. 2. Make sure your ears are clean [...] cannot use soap and water, use hand head rose grower. Follow these instructions at home: ? Use [...] provider. Document Revised: 02/11/2020 Document Reviewed: 02/11/2020 [employer] Patient Education ? 2022 [employer] Infectious Disease Otitis Externa Otitis externa [...] you start to feel better. ? Take zfsi-itq-qajhqvv and prescription medicines only as told by your doctor. ? Avoid getting water in your ears as told by your doctor. You may be told to avoid swimming or water sports for a few days. ? Keep all follow-up visits. How is this prevented? ? Keep your ears dry. Use the corner o (more content not included)...Normal [facility] Educationon [phone] Education Immunology Fatigue If you have fatigue, [...] these instructions at home: Medicines ? Take ncpe-zfp-ndsadwu and prescription medicines only as told by [...] your nearest emergency room or: ? Call 241. ? Call the National Suicide Prevention Lifeline at or 403. This is open 24 hours a day. ? Text the Crisis Text Line at 766783. Summary ? If you have fatigue, you [...] provider. Document Revised: 02/06/2022 Document Reviewed: 02/06/2022 [employer] Patient Education ? 2022 [employer]. Urology Urodynamic Testing Urodynamic tests are done [...] ? Leaking urine (inco (more content not included)...NormalMercy HealthCHEMISTRYOrdered By: SYSTEM SYSTEM on 68-55-5795Vjby T4 [Mass/Vol]0.58 ng/dLNormal0.58 - 1.64 ng/dLFTMC RemisolTSH Qn3.35 m[IU]/LNormal0.34 - 5.60 mcIU/mLFTMC RemisolAlbumin [Mass/Vol]4.5 g/dLNormal3.3 - 5.0 gm/dLFTMC Remisol Albumin/Globulin [Mass ratio]1.4 {ratio}Normal1.1 - 2.2[facility] RemisolALP [Catalytic activity/Vol]62 [iU]/gRpukqc29 - 98 Int._Unit/LFTMC RemisolALT No additional P-5'-P [Catalytic activity/Vol]27 [iU]/dNormal6 - 46 Int._Unit/LFTMC RemisolAnion gap [Moles/Vol]13 mmol/LNormal6 - 16 mEq/LFTMC RemisolAST [Catalytic activity/Vol]21 [iU]/dNormal5 - 43 Int._Unit/LFTMC RemisolBilirubin [Mass/Vol]0.3 mg/dLNormal0.0 - 1.1 mg/dLFTMC RemisolCalcium [Mass/Vol]9.6 mg/dL Normal8.9 - 11.1 mg/dLFTMC RemisolChloride [Moles/Vol]104 mmol/FTzhigk742 - 111 mmol/LFTMC RemisolCO2 [Moles/Vol]25 mmol/RHaesxh22 - 31 mmol/LFTMC Remisol Cobalamin (Vitamin B12) [Mass/Vol]211 pg/kHIgggvj51 - 1500 pg/mLFTMC Remisol Creatinine [Mass/Vol]0.9 mg/dLNormal0.5 - 1.3 mg/dLFTMC RemisolFerritin [Mass/Vol]38 ng/uNHlxzga44 - 307 ng/mLFTMC RemisolFolate [Mass/Vol]13.5 ng/mL Normal>=6.7ng/mLFTMC RemisolGFR/1.73 sq M.predicted among non-blacks MDRD (S/P/Bld) [Vol rate/Area]85 mL/min/1.73 p0Dnrhhl>=59mL/min/1.73 m2[facility] Chem S Globulin (S) [Mass/Vol]3.3 g/dLNormal1.4 - 4.0 gm/dLFTMC RemisolGlucose [Mass/Vol]93 mg/xITrwzfy76 - 199 mg/dLFTMC RemisolIron [Mass/Vol]56 ug/dLNormal 35 - 153 mcg/dLFTMC RemisolIron binding capacity [Mass/Vol]395 ug/hWFwpudi607 - 400 mcg/dLFTMC RemisolPotassium [Moles/Vol]3.7 mmol/LNormal3.5 - 5.3 mmol/LFTMC RemisolProtein [Mass/Vol]7.8 g/dLNormal6.0 - 7.8 gm/dLFTMC RemisolSodium [Moles/Vol]138 mmol/XQcwwys419 - 145 mmol/LFTMC RemisolTransferrin [Mass/Vol]282 mg/tCIpmtie149 - 370 mg/dLFTMC RemisolUrea nitrogen [Mass/Vol]11 mg/dLNormal5 - 21 mg/dLFTMC RemisolUrea nitrogen/Creatinine [Mass ratio]12 mg/tuUsllxo03 - 20 [facility] RemisolHEMATOLOGYOrdered By: SYSTEM SYSTEM on 70-06-6387Pgayukqci/100 WBC (Bld)0.6 %Normal0.0 - 2.0 %[facility] HemeAutoSSBasophils/Leukocytes Auto (Bld) [Pure # fraction]0.0 E9/LNormal0.0 - 0.2 E9/LFTMC HemeAutoSSEosinophils/100 WBC (Bld) 1.1 %Normal0.0 - 8.0 %[facility] HemeAutoSSEosinophils/Leukocytes Auto (Bld) [Pure # fraction]0.1 E9/LNormal0.0 - 0.5 E9/LFTMC HemeAutoSSLymphocytes/100 WBC (Bld) 42.4 %Ofcmmi78.0 - 50.0 %[facility] HemeAutoSSLymphocytes/Leukocytes Auto (Bld) [Pure # fraction]3.4 E9/LNormal1.0 - 4.0 E9/LFTMC HemeAutoSSMonocytes/100 WBC (Bld)8.0 %Normal4.0 - 14.0 %[facility] HemeAutoSSMonocytes/Leukocytes Auto (Bld) [Pure # fraction]0.6 E9/LNormal0.2 - 1.0 E9/LFTMC HemeAutoSSNeutrophils/100 WBC (Bld) 47.9 %Zdbjbv68.0 - 75.0 %[facility] HemeAutoSSNeutrophils/Leukocytes Auto (Bld) [Pure # fraction]3.8 E9/LNormal2.0 - 7.5 E9/LFTMC HemeAutoSSHEMATOLOGYOrdered By: Trena Castro on 54-55-0665Gvpgtsktcuv distribution width (RBC) [Ratio]14.5 % High10.9 - 14.2 %[facility] HemeAutoSSHematocrit (Bld) [Volume fraction]37.4 %Normal 34.0 - 46.0 %[facility] HemeAutoSSHemoglobin (Bld) [Mass/Vol]13.1 g/pWFocwjy00.0 - 16.0 gm/dLFTMC HemeAutoSSMCH (RBC) [Entitic mass]30.6 tnXylmnl19.0 - 34.0 pgFTMC HemeAutoSSMCHC (RBC) [Mass/Vol]34.9 g/qXRmfilq25.4 - 36.0 gm/dLFTMC HemeAutoSS MCV (RBC) [Entitic vol]87.7 bXMtopea97.0 - 100.0 fLFTMC HemeAutoSSPlatelet mean volume (Bld) [Entitic vol]8.2 fLNormal6.4 - 10.8 fLFTMC HemeAutoSSPlatelets (Bld) [#/Vol]334.0 E9/BDebkeg284.0 - 500.0 E9/LFTMC HemeAutoSSRBC (Bld) [#/Vol] 4.3 E12/LNormal4.3 - 5.9 E12/LFTMC HemeAutoSSWBC corrected for nucl RBC Auto (Bld) [#/Vol]7.9 E9/LNormal4.0 - 11.0 E9/LFTMC HemeAutoSSCHEMISTRYOrdered By: [employer] SYSTEM on 27-48-8205Drzk T4 [Mass/Vol]0.58 ng/dLNormal0.58 - 1.64 ng/dL [facility] RemisolTSH Qn3.10 m[IU]/LNormal0.34 - 5.60 mcIU/mLFTMC RemisolCHEMISTRY Ordered By: Valeri German on 98-76-5001UiS9o (Bld) [Mass fraction]5.9 %Normal <=5.9%[facility] ChemAutoSSCHEMISTRYOrdered By: SYSTEM SYSTEM on 08-63-4799Zjst T4 [Mass/Vol]0.71 ng/dLNormal0.58 - 1.64 ng/dLFT RemisolTSH Qn3.77 m[IU]/LNormal 0.34 - 5.60 mcIU/mLFT RemisolCBC AUTO DIFFon 11-38-0020KUJJ #0.0 103/ulNormal 0.0-0.1The [facility] HospitalComment on above:Performed By: #### [id number] #### [facility] [address] [address] [address] Edward GillBasophils/100 WBC (Bld)0.4 %Normal0.2-2.0The [facility] Comment on above:Performed By: #### HIV12 #### [facility] [address] [place] [address] Dr. Leon ChangEO #0.1 103/ulNormal0.0-0.7The [place] HospitalComment on above: Performed By: #### HIV12 #### [facility] [address] [address] [address] Edward Calhounosinophils/100 WBC (Bld)1.3 %Normal0.9-7.0The [facility] Comment on above:Performed By: #### HIV12 #### [facility] [address] [address] [address] Edward Calhounrythrocyte distribution width (RBC) [Ratio]16.6 %Critically high 11.0-15.0The [facility] HospitalComment on above:Performed By: #### HIV12 #### [facility] [address] [address] [address] Edward GillHematocrit (Bld) [Volume fraction]30.2 %Critically low36.0-48.0 The [facility] HospitalComment on above:Performed By: #### HIV12 #### [facility] [address] [place] [address] Dr. Edward GillHemoglobin (Bld) [Mass/Vol]10.5 g/dLCritically low12.0-16.0The [facility] HospitalComment on above:Performed By: #### HIV12 #### [facility] [address] [address] [address] Edward Ray #0.04 10e3/ulCritically high0.00-0.03The [facility] Comment on above:Performed By: #### HIV12 #### [facility] [address] [address] [address] Edward Ray %0.4 %Normal0.0-0.5The [facility] HospitalComment on above: Performed By: #### HIV12 #### [facility] [address] [place] [address] Dr. Edward Velásquez #3.1 103/ulNormal1.2-3.8The [place] HospitalComment on above:Performed By: #### HIV12 #### [facility] [address] [place] [address] Dr. Edward Alvarezhocytes/100 WBC (Bld)34.2 %Opyavs08.5-60.0The [facility] HospitalComment on above:Performed By: #### HIV12 #### [facility] [address] [place] [address] Dr. Edward SimmonsUAL DIFF REQNONormalThe [facility] HospitalComment on above: Performed By: #### HIV12 #### [facility] [address] [place] [address] Dr. Edward June (RBC) [Entitic mass]30.3 sdXpmfep82.7-34.0The [facility] HospitalComment on above:Performed By: #### HIV12 #### [facility] [address] [place] [address] Dr. Edward June (RBC) [Mass/Vol]34.8 g/hCNegqdh23.9-35.2The [facility] HospitalComment on above:Performed By: #### HIV12 #### [facility] [address] [place] [address] Dr. dEward June (RBC) [Entitic vol]87.0 hTTgpvrr00.0-99.0The [facility] HospitalComment on above:Performed By: #### HIV12 #### [facility] [address] [place] [address] Dr. Edward Rosas #0.7 103/ulNormal0.3-0.8The [facility] HospitalComment on above:Performed By: #### HIV12 #### [facility] [address] [place] [address] Dr. Edward Ignacioocytes/100 WBC (Bld)7.5 %Normal1.7-12.0The [facility] Comment on above:Performed By: #### HIV12 #### [facility] [address] [place] [address] Dr. Edward Guevara #5.0 103/ulNormal1.4-6.5The [facility] HospitalComment on above:Performed By: #### HIV12 #### [facility] [address] [place] [address] Dr. Edward Moralesutrophils/100 WBC (Bld)56.2 %Pyozzs11.0-75.0The [facility] HospitalComment on above:Performed By: #### HIV12 #### [facility] [address] [place] [address] Dr. Edward Medellin mean volume (Bld) [Entitic vol]9.8 fLNormal9.5-13.5The [facility] HospitalComment on above:Performed By: #### HIV12 #### [facility] [address] [place] [address] Dr. Edward GillPLT238 103/pcMytyba908-077Usv [facility] HospitalComment on above: Performed By: #### HIV12 #### [facility] [address] [place] [address] Dr. Edward GillRBC3.47 106/ulCritically low4.20-5.40The [facility] HospitalComment on above:Performed By: #### HIV12 #### [facility] [address] [place] [address] Dr. Edward GillWBC9.0 103/ulNormal4.0-11.0The [facility] HospitalComment on above: Performed By: #### HIV12 #### [facility] [address] [place] [address] Dr. Edward GillFETAL SCREENon 46-13-1304FFYXZ SCREENNegativeThe Christ HospitalComment on above:Performed By: #### FETSCRN #### [facility] [address] [place] [address] Dr. Edward GillDIRECT COOMBSon 34-94-4660YUVSEV COOMBSNegativeThe Christ HospitalComment on above:Performed By: #### DIRCMB #### [facility] [address] [place] [address] Dr. Edward GillPOINT OF CARE GLUCOSEon 39-76-7359Vctwtwh [Mass/Vol]117 mg/dL Critically miiv29-542Zzf [facility] HospitalComment on above:Performed By: #### POCGLUC ####[facility] V[address]fr[address] [place], [place] [address]Dr. Edward GillTYPE AND SCREENon 18-36-7182KIYR AND SCREENNegativeThe Christ HospitalComment on above:Performed By: #### TNS #### [facility] [address] [place] [address] Dr. Edward Engle AUTO DIFFon 03-29-0916IHPD #0.0 103/ulNormal0.0-0.1The [facility] HospitalComment on above:Performed By: #### HIV12 #### [facility] [address] [place] [address] Dr. Edward GillBasophils/100 WBC (Bld)0.2 %Normal0.2-2.0The [facility] Comment on above:Performed By: #### HIV12 #### [facility] [address] [place] [address] Dr. Leon ChangERiley #0.0 103/ulNormal0.0-0.7The [facility] HospitalComment on above: Performed By: #### HIV12 #### [facility] [address] [place] [address] Dr. Edward Calhounosinophils/100 WBC (Bld)0.5 %Critically low0.9-7.0The [facility] HospitalComment on above:Performed By: #### HIV12 #### [facility] [address] [place] [address] Dr. Edward Calhounrythrocyte distribution width (RBC) [Ratio]16.1 %Critically high 11.0-15.0The [facility] HospitalComment on above:Performed By: #### HIV12 #### [facility] [address] [place] [address] Dr. Edward GillHematocrit (Bld) [Volume fraction]32.1 %Critically low36.0-48.0 The [facility] HospitalComment on above:Performed By: #### HIV12 #### [facility] [address] [place] [address] Dr. Edward GillHemoglobin (Bld) [Mass/Vol]11.7 g/dLCritically low12.0-16.0The [facility] HospitalComment on above:Performed By: #### HIV12 #### [facility] [address] [place] [address] Dr. Edward Ray #0.04 10e3/ulCritically high0.00-0.03The [facility] Comment on above:Performed By: #### HIV12 #### [facility] [address] [place] [address] Dr. Edward Ray %0.5 %Normal0.0-0.5The [facility] HospitalComment on above: Performed By: #### HIV12 #### [facility] [address] [place] [address] Dr. Edward Velásquez #2.4 103/ulNormal1.2-3.8The [facility] HospitalComment on above:Performed By: #### HIV12 #### [facility] [address] [place] [address] Dr. Edward Ronmphocytes/100 WBC (Bld)27.2 %Ucbgye62.5-60.0The [facility] HospitalComment on above:Performed By: #### HIV12 #### [facility] [address] [place] [address] Dr. Edward Antony DIFF REQNONormalThe [facility] HospitalComment on above: Performed By: #### HIV12 #### [facility] [address] [place] [address] Dr. Edward June (RBC) [Entitic mass]30.0 rlHgsiiv09.7-34.0The [facility] HospitalComment on above:Performed By: #### HIV12 #### [facility] [address] [place] [address] Dr. Edward June (RBC) [Mass/Vol]36.4 g/dLCritically high29.9-35.2The [facility] HospitalComment on above:Performed By: #### HIV12 #### [facility] [address] [place] [address] Dr. Edward June (RBC) [Entitic vol]82.3 kZUilljg66.0-99.0The [facility] HospitalComment on above:Performed By: #### HIV12 #### [facility] [address] [place] [address] Dr. Edward Rosas #0.7 103/ulNormal0.3-0.8The [facility] HospitalComment on above:Performed By: #### HIV12 #### [facility] [address] [place] [address] Dr. Edward Ignacioocytes/100 WBC (Bld)7.7 %Normal1.7-12.0The [facility] Comment on above:Performed By: #### HIV12 #### [facility] [address] [place] [address] Dr. Edward Guevara #5.5 103/ulNormal1.4-6.5The [facility] HospitalComment on above:Performed By: #### HIV12 #### [facility] [address] [place] [address] Dr. Yilan ChangNeutrophils/100 WBC (Bld)63.9 %Ekipiw18.0-75.0The [facility] HospitalComment on above:Performed By: #### HIV12 #### [facility] [address] [place] [address] Dr. Edward Serranolet mean volume (Bld) [Entitic vol]10.0 fLNormal9.5-13.5The [facility] HospitalComment on above:Performed By: #### HIV12 #### [facility] [address] [place] [address] Dr. Edward GillPLT274 103/muKaqdby825-141Sfw [facility] HospitalComment on above: Performed By: #### HIV12 #### [facility] [address] [place] [address] Dr. Edward GillRBC3.90 106/ulCritically low4.20-5.40The [facility] HospitalComment on above:Performed By: #### HIV12 #### [facility] [address] [place] [address] Dr. Edward GillWBC8.7 103/ulNormal4.0-11.0The [facility] HospitalComment on above: Performed By: #### HIV12 #### [facility] [address] [place] [address] Dr. Edward GillCovid-19 PCR ([facility])on 02-99-6289IVGY-CoV-2 (COVID-19) RNA LELO+probe Ql (Unsp spec)Not detectedNormalNOT DETECTEDThe [facility] Comment on above:Result Comment: When diagnostic [...] for this test is supported by the Product Safety Head of Health and Human Service's declaration that [...] longer be used).Performed By: #### HIV12 #### [facility] [address] [address] [address] Edward GillDRUG SCREEN RAPID (URINE)on [id number]R [facility] HospitalComment on above:Performed By: #### DRUGRPD ####[facility] [address] [address]Dr[address] Edward GillBAR NegativeNormalNEGATIVEOhiohealth [place] [facility] Methodist HospitalComment on above:Performed By: #### DRUGRPD ####[facility] [address] [address]Dr. Edward GillBUPNegativeNormalNEGATIVEOhiohealth [place] [facility] Methodist HospitalComment on above:Performed By: #### DRUGRPD ####[facility] [address] [address]Dr. Edward GillBZONegativeNormalNEGATIVEOhiohealth [place] Methodist HospitalComment on above:Performed By: #### DRUGRPD ####[facility] [address] [address]Dr. Edward GillCOCNegative NormalNEGATIVEOhiohealth [place] Methodist HospitalComment on above:Performed By: #### DRUGRPD ####[facility] [address] [address]Dr. Edward GillCUT-OFFSSEE BELOWExcelsior Springs Medical CenteralThKnox Community HospitalComment on above:Result Comment: AMP (Amphetamine): 500ng/mL, BAR (Barbituates): 200 ng/mL, BZO (Benzodiazepines): 150 ng/mL, BUP (Buprenorphine): 10 ng/mL, INDIA (Cocaine): 150 ng/mL, mAMP (Methamphetamine): 500 ng/mL, MTD (Methadone): 200 ng/mL, OPI (Opiates): 100 ng/mL, OXY (Oxycodone): 100 ng/mL, PCP (Phencyclidine): 25 ng/mL, PPX (Propoxyphene): 300 ng/mL, THC (Cannabinoids): 50 ng/mL, TCA (Trycyclic Antidepressants): 300 ng/mLPerformed By: #### DRUGRPD ####[facility] Pqkhbg[address] [place], [place] [address]Dr. Yilan ChangDRUG CUT HEADERDRUG CLASS TEST SYSTEM CUT-OFF CONCENTRATIONS ARE FOLLOWS:NormalThe [facility] HospitalComment on above:Performed By: #### DRUGRPD ####[facility] [address]ax[address] [place], [place] [address]Dr. Yilan ChangmAMP NegativeNormalNEGATIVECleveland Clinic Avon Hospital HospitalComment on above:Performed By: #### DRUGRPD ####[facility] [address]dr[address] [place], [place] [address]Dr. Yilan ChangMTDNegativeNormalNEGATIVECleveland Clinic [facility]on Hospital HospitalComment on above:Performed By: #### DRUGRPD ####[facility] [address]dnv[address]gc[address] [place], [place] [address]Dr. Yilan ChangOPINegativeNormalNEGATIVECleveland Clinic [facility]on Hospital HospitalComment on above:Performed By: #### DRUGRPD ####[facility] Otcomxecim[address] [place], [place] [address]Dr. Yilan ChangOXYNegative NormalNEGATIVECleveland Clinic Avon Hospital HospitalComment on above:Performed By: #### DRUGRPD ####[facility] [address] [place], [place] [address]Dr. Yilan ChangPCPNegativeNormalNEGATIVECleveland Clinic [facility] Hospital HospitalComment on above: Performed By: #### DRUGRPD ####[facility] E[address]gfvscrg[address] [place], [place] [address]Dr. Yilan ChangPPXNegativeNormalNEGATIVECleveland Clinic [facility]on Hospital HospitalComment on above:Performed By: #### DRUGRPD ####[facility] Galxpcphhg[address] [place], [place] [address]Dr. Yilan ChangTCANegative NormalNEGATIVECleveland Clinic Avon Hospital HospitalComment on above:Performed By: #### DRUGRPD ####[facility] [address] [place], [place] [address]Qc. Edward WelchCNegativeNormalNEGATIVEThe [facility] HospitalComment on above: Performed By: #### DRUGRPD ####[facility] [address] [place], [place] [address]Ly. Edward Sherwood PREG BIOPHY W NON STRESSon [id number] PREG BIOPHY W NON STRESSEXAMINATION: US PREG [...] Electronically authenticated by: HUMERA KIM Date: 2022-05-06 19:05[facility] HospitalUS PREG BIOPHY W NON STRESSon [id number] PREG BIOPHY W NON STRESSEXAMINATION: US PREG [...] Electronically authenticated by: ANGIE GALDAMEZ Date: 2022-05-01 16:16[facility] B STREP CULTUREon 04-23-2022. agalactiae Ag Ql (Unsp spec)Isolate 1 Streptococcus agalactiae Heavy growth of ORGANISM 1 Streptococcus agalactiae ANTIBIOTIC M.I.C RX STATUS Ampicillin <=0.25 S F Cefotaxime <=0.12 S F Ceftriaxone <=0.12 S F Clindamycin <=0.25 R F Erythromycin >=8 R F Inducible Clindamycin Resistance POS F Levofloxacin =0.5 S F Linezolid <=2 S F Tetracycline >=16 R F Vancomycin =0.5 S FNormalOhiohealth [facility] City Methodist HospitalComment on above:Performed By: #### GBSCX ####[facility] [address] [place], [place] [address]Pg. Edward Sherwood PREG BIOPHY W NON STRESSon [id number] PREG BIOPHY W NON STRESSEXAMINATION: US PREG [...] Electronically authenticated by: HUMERA KIM Date: 2022-04-17 17:08[facility] PREG GROWTHon [id number] PREG GROWTHEXAMINATION: US PREG GROWTH HISTORY: Gestational [...] Electronically authenticated by: HUMERA KIM Date: 2022-04-17 16:49[facility] PREG BIOPHY W NON STRESSon [id number] PREG BIOPHY W NON STRESSEXAMINATION: US PREG [...] Electronically authenticated by: HUMERA KIM Date: 2022-04-12 08:[address] [place], [place] [address]GLUCOSE, BLOOD (POC)on 24-65-7900Ttdkbyz [Mass/Vol]106 mg/dL Euzvncdu89 - 99 mg/dLNewark Hospital PREG BIOPHY W NON STRESSon [id number] PREG BIOPHY W NON STRESSEXAMINATION: US PREG [...] Electronically authenticated by: HUMERA KIM Date: 2022-04-01 16:08[facility] PREG BIOPHY W NON STRESSon [id number] PREG BIOPHY W NON STRESSEXAMINATION: US PREG [...] Electronically authenticated by: HUMERA KIM Date: 2022-03-27 08:54[facility] HospitalUS PREG GROWTHon [id number] PREG GROWTHEXAMINATION: US PREG GROWTH HISTORY: Maternal [...] Electronically authenticated by: HUMERA KIM Date: 2022-03-17 06:04[facility] HospitalTSHon 34-67-0469EKM2.586 uIU/mLNormal0.358-3.740[facility] HospitalComment on above:Performed By: #### HIV12 #### [facility] [address] [place] [address] Dr. Edward Das AND SCREENon [id number] AND SCREENNegativeThe Christ HospitalComment on above:Performed By: #### TNS #### [facility] [address] [address] [address] Edward Emanuel ACOG PANEL 2: 30 to 65on 02-21-2022..NormalThe [facility] HospitalComment on above:Result Comment: Performed at: WBPerformed By: #### [id number] ####[facility] [address] [address]Dr. Edward Koenig Gdln ACOG Pbvfrab36-92NigpsjMpdThe Christ HospitalComment on above:Performed By: #### [id number] ####[facility] [address] [place], [place] [address]Dr. Edward GillDIAGNOSIS:CommentKettering Health Main Campus on above:Result Comment: NEGATIVE FOR INTRAEPITHELIAL LESION OR MALIGNANCY. Performed at: WBPerformed By: #### [id number] ####[facility] [address] [place], [place] [address]Dr. Edward GillHPV AptimaNegativeNormal NegativeThe [facility] on above:Result Comment: This nucleic acid amplification test detects fourteen high-risk HPV types (16,18,31,33,35,39,45,51,52,56,58,59,66,68) without differentiation. Performed at: =GPerformed By: #### [id number] ####[address] [address]Dr. Edward GillMethodology:CommentKettering Health Main Campus on above:Result Comment: This liquid based ThinPrep(R) pap test was screened with the use of an image guided system. Performed at: WBPerformed By: #### [id number] ####[place] [place] [address]Dr. Edward GillNote:CommentKettering Health Main Campus on above:Result Comment: The Pap smear is a screening test designed to aid in the detection of premalignant and malignant conditions of the uterine cervix. It is not a diagnostic procedure and should not be used as the sole means of detecting cervical cancer. Both false-positive and false-negative reports do occur. . Performed at: WBPerformed By: #### [id number] ####[facility] Bmkzbf[address] [place], [place] [address]Dr. Edward ChangPerformed by:CommentKettering Health Main Campus on above:Result Comment: Zenaida Diop, Credit Control Clerk (ASCP) Performed at: WBPerformed By: #### [id number] ####[facility] Oogdqescvc[address] [place], [place] [address]Dr. Edward GillSpecimen adequacy:Comment NormalThe East Hickory HospitalComment on above:Result Comment: Satisfactory for evaluation. No endocervical component is identified. Performed at: WBPerformed By: #### [id number] ####[facility] Cliihnqcbn[address] [place], [place] [address]Dr. Edward GillCHLAMYDIA/GONOCOCCUS LELO (SWAB/URINE/PAPon 19-39-6663Uusibybwc trachomatis, NAANegativeNormalNegativeOhiohealth [place] Methodist HospitalComment on above:Performed By: #### CT/NGNA ####[facility] Ovebeibocv[address] [place], [place] [address]Dr. Edward Gill Neisseria gonorrhoeae, NAANegativeNormalNegativeOhiohealth [place] Methodist HospitalComment on above:Performed By: #### CT/NGNA ####[facility] Nhrctcuniy[address] [place], [place] [address]Dr. Edward GillVAGINITIS/VAGINOSIS DNA PROBEon 95-74-2742Kdbwmos speciesNegativeNormalNegativeOhiohealth [place] City Methodist HospitalComment on above:Performed By: #### VAGINT ####[facility] Mxnylppqwi[address] [place], [place] [address]Dr. Edward GillGardnerella vaginalisNegativeNormal NegativeOhiohealth [place] Methodist HospitalComment on above:Performed By: #### VAGINT ####[facility] Zqbcqetxte0[address] [place], [place] [address]Dr. Edward GillTrichomonas vaginalisNegativeNormalNegativeOhiohealth [place] [facility] Comment on above:Performed By: #### VAGINT ####[facility] Ngttnsqerk[address] [place], [place] [address]Dr. Edward GillTSHon 60-29-9400IXV6.536 uIU/mLNormal0.358-3.740Ohiohealth [place] Methodist HospitalComment on above:Performed By: #### TSH ####[facility] Dponhdgzng[address] [place], [place] [address]Dr. Edward GillGLUCOSE - 1HRon 12-86-4226Ovkvvfl [Mass/Vol]160 mg/dLCritically high 74-106Ohiohealth [place] Methodist HospitalComment on above:Performed By: #### GLU1HR ####[facility] Vbzzckeffb25[address] [place], [place] [address]Gs. Edward Garciadru 85-61-6949LCS1.899 uIU/mLNormal0.358-3.740The [facility] Comment on above:Performed By: #### HIV12 #### [facility] [address] [place], [place] [address] Dr. Edward Garcia, [facility] Centeron 51-96-4982Wlxxzzuary byUltrasMercy HealthComment on above:Performed By: #### AAFPM #### [facility] [address] [place] [address] Rack Pusher: Pancho Cano MD [address] [id number] Rack Pusher: Yosvany ArriagaWilson HealthComment on above:Result Comment: Results for Estimated Due Date: 05 13 22Performed By: #### AAFPM #### [facility] [address] [place] [address] Rack Pusher: Pancho Cano MD [facility] [address] [place], [place] [address] Rack Pusher: Danelle Arriagaflnieves [facility], BeachwoodComment on above:Performed By: #### AAFPM #### [facility] [address] [place] [address] Rack Pusher: Pancho Cano MD [facility] [address] [place], [place] [address] Rack Pusher: Zhang Bledsoe MDGestat Age (exact)15 wks, 2 daysCommunity Memorial HospitalComment on above:Performed By: #### AAFPM #### [facility] [address] [place] [address] Rack Pusher: Pancho Cano MD [address] [address] Rack Pusher: Zhang Bledsoe MDIns ReLakeHealth Beachwood Medical CenterComment on above:Performed By: #### AARAÚLM #### [address] [address] Rack Pusher: Pancho Cano MD [address] [address] Rack Pusher: Zhang Bledsoe MDInterpretationScreen NegCommunity Memorial HospitalComment on above:Result Comment: (NOTE) INTERPRETATION: SCREEN NEGATIVE for open spina bifida Neural Tube Defects (NTD) Negative Pre-Test Post-Test Cutoff Neural Tube Defects Risks 1:1030 1:2690 1:250 Comments: The risk of an open neural tube defect is less than the screening cut-off. This test was developed and its performance characteristics determined by [employer]. It has not been cleared or approved by the US Food and Drug Administration. This test was performed in a CLIA certified laboratory and is intended for clinical purposes.Performed By: #### AARAÚLM #### [address] [address] Rack Pusher: Pancho Cano MD [address] [address] Rack Pusher: Osmar Arriagaternal Age at Del36.6 yrCommunity Memorial HospitalComment on above:Performed By: #### LAURITAFPM #### [address] [address] Rack Pusher: Pancho Cano MD [address] [address] Rack Pusher: Osmar Arriagabarstow community hospital RaceNonblackCommunity Memorial HospitalComment on above:Performed By: #### AAFPM #### [address] [address] Rack Pusher: Pancho Cano MD [facility] [address] [place] [address] Rack Pusher: Osmar Arriagaternal Gjzeub986.0 lbs.NormalSelect Medical [facility]health Rehabilitation HospitalComment on above:Performed By: #### AAFPM #### [facility] [address] [place] [address] Rack Pusher: Pancho Cano MD [facility] [address] [place] [address] Rack Pusher: BAKARI Arriaga for AFP1.52NormalSelect Medical Ohiohealth Rehabilitation HospitalComment on above:Performed By: #### AAFPM #### [facility] [address] [place] [address] Rack Pusher: Pancho Cano MD [address] [address] Rack Pusher: Zhang Bledsoe MDNumber of FetusesSingletonNoUniversity Hospitals Portage Medical CenterComment on above:Performed By: #### AAFPM #### [facility] [address] [place] [address] Rack Pusher: Pancho Cano MD [facility] [address] [place] [address] Rack Pusher: Smith Arriaga'jaylan AFP35 ng/mLNormalSelect Medical [facility]health Rehabilitation HospitalComment on above:Performed By: #### AAFPM #### [facility] [address] [place] [address] Rack Pusher: Pancho Cano MD [facility] [address] [place] [address] Rack Pusher: NIKITA ArriagaSheltering Arms Hospital Comment on above:Performed By: #### AAFPM #### [facility] [address] [place] [address] Rack Pusher: Pancho Cano MD [address] [id number] Rack Pusher: Gill Arriaga [facility] Mercy HospitalComment on above:Result Comment: (NOTE) Initial sample Performed by [employer], [address] [place] [id number] [email or web address], Yayo Moncada MD, PHD, Lab. DirectorPerformed By: #### AAFPM #### [address] [address] Rack Pusher: Pancho Cano MD [address] [id number] Rack Pusher: Zhang Bledsoe MDA, [facility] 85-80-2455Kxphfwo SmokingKindred Hospital DaytonComment on above:Performed By: #### AAFPM #### [address] [address] Rack Pusher: Pancho Cano MD [address] [id number] Rack Pusher: Marti ArriagaKettering Health Comment on above:Performed By: #### AAFPM #### [address] [address] Rack Pusher: Pancho Cano MD [address] [id number] Rack Pusher: SHIVA ArriagaLicking Memorial Hospital Comment on above:Performed By: #### AAFPM #### [address] [address] Rack Pusher: Pancho Cano MD [facility] [address] [place], [place] [address] Rack Pusher: Vangie Arriaga EggINFORMATION NOT Cedar Hills HospitalComment on above:Performed By: #### AAFPM #### [facility] [address] [place] [address] Rack Pusher: Pancho Cano MD [facility] [address] [place] [address] Rack Pusher: Zhang Bledsoe MDEstimated Due [id number] Memorial HospitalComment on above:Performed By: #### AAFPM #### [facility] [address] [place] [address] Rack Pusher: Pancho Cano MD [facility] [address] [place] [address] Rack Pusher: Zhang Bledsoe MDVibra Hospital Of Southeastern Massachusetts HistoryNegativeCommunity Memorial HospitalComment on above:Performed By: #### AAFPM #### [address] [address] Rack Pusher: Pancho Cano MD [address] [address] Rack Pusher: Zhang Bledsoe MDIn [facility] FertalizatINFORMATION NOT [facility] Hospital DistrictComment on above:Performed By: #### AAFPM #### [address] [address] Rack Pusher: Pancho Cano MD [facility] [address] [place] [address] Rack Pusher: Zhang Bledsoe MDMORNINGSIDE HOSPITAL [id number] Memorial HospitalComment on above:Performed By: #### AAFPM #### [address] [address] Rack Pusher: Pancho Cano MD [facility] [address] [place] [address] Rack Pusher: Osmar Arriagaternal [id number] Memorial HospitalComment on above:Performed By: #### AAFPM #### [facility] [address] [place] [address] Rack Pusher: Pancho Cano MD [facility] [address] [place] [address] Rack Pusher: Osmar Arriagaternal Ntjdcn675IputkkBowfpCommunity Memorial HospitalComment on above:Performed By: #### AAFPM #### [facility] [address] [place] [address] Rack Pusher: Pancho Cano MD [facility] [address] [place] [address] Rack Pusher: BAKARI Arriagaonochorionic TwinsProtestant HospitalComment on above:Performed By: #### AAFPM #### [address] [address] Rack Pusher: Pancho Cano MD [facility] [address] [place] [address] Rack Pusher: GLADYS Arriagaatiallyssa Weight UnitsLBSCommunity Memorial HospitalComment on above:Performed By: #### AAFPM #### [address] [address] Rack Pusher: Pancho Cano MD [facility] [address] [place] [address] Rack Pusher: LUIS Arriagaace (Maternal)WHITECommunity Memorial HospitalComment on above:Performed By: #### AAFPM #### [address] [address] Rack Pusher: Pancho Cano MD [facility] [address] [place] [address] Rack Pusher: Jay Arriaga SpecimenINFORMATION NOT [facility] Hospital DistrictComment on above:Performed By: #### AAFPM #### [facility] [address] [place] [address] Rack Pusher: Pancho Cano MD [facility] [address] [place], [place] [id number] Rack Pusher: Zhang Bledsoe MDValproic/CarbamazepINFORMATION NOT [facility] Hospital DistrictComment on above:Performed By: #### AAFPM #### [address] [address] Rack Pusher: Pancho Cano MD [address] [address] Rack Pusher: JIMENEZ Arriaga Single Marker Scrn, Maternal, Serumon 35-40-0330UopElbqes[address] [place], [place] [address]Carrier Study Non-ProMedicaon 96-79-8464QegSbmtwl[address] [place] [address] MISCELLANEOUS TESTINGon 69-97-5205Jarx Out ReportFWD TO [facility] TRK 5848 6234 19DOMINION HOSPITALTest NameNATERA MARY WASHINGTON HOSPITALMiscellaneouson 08-49-4685Dvck Out ReportFWD TO [facility] TRK 5848 6234 19Community Memorial HospitalComment on above:Performed By: #### CMIS #### [address] [address] Rack Pusher: Pancho Cano MDTest Brecksville VA / Crille HospitalComment on above:Performed By: #### CMIS #### [facility] [address] [place] [address] Rack Pusher: Pancho Cano MDHEP B SURFACE ANTIGEN SCREENon 68-70-7618CCuPj ScreenNegativeNormalNegativeOhiohealth Grove City Methodist HospitalComment on above:Performed By: #### HIV12 #### [facility] [address] [place] [address] [address] Edward DuttaTIS C VIRUS AB W/ REFLEX QUANTon 78-52-8047IVJ AB<0.1Normal 0.0-0.9[facility] on above:Performed By: #### HCVPCRR ####[facility] [address] [place] [address]Dr. Edward GillInterpretation:CommentNormalThe [facility] on above: Result Comment: Negative Not infected with HCV, unless recent infection is suspected or other evidence exists to indicate HCV infection.Performed By: #### HCVPCRR ####[facility] Ivxvfjcyui[address] [place] [address]Dr. Edward GillHIV 1 AND 2 WITH REFLEXon 96-42-7714MOW Screen 4th Generation wRfx Non-ReactiveNormalNon ReactiveThe [facility] on above:Result Comment: HIV Negative HIV-1/HIV-2 antibodies and HIV-1 p24 antigen were NOT detected. There is no laboratory evidence of HIV infection.Performed By: #### HIV12 #### [facility] [address] [place] [address] Dr. Edward GillRPSpencer QUANTon 10-34-1420Xlnac Plasma Reagin, QuantNon-Reactive NormalNonRea<1:1[facility] on above:Result Comment: Please Note: This test does not meet current guidelines for screening and diagnosis of syphilis. This test is intended for following treatment response in patients being treated for syphilis infection. To screen for syphilis infection, a reflex cascade that includes both RPR and a treponema-specific assay should be utilized, such as Treponema pallidum (Syphilis) Screening Dickson (894844) or Rapid Plasma Reagin (RPR) Test With Reflex to Quantitative RPR and Confirmatory Treponema pallidum Antibodies (938529).Performed By: #### RPRQ ####[facility] Pivpilqizd[address] [place] [address]Dr. Edward GillRUBELLA AB IGG on 78-29-8217Qedxrwn Antibodies, IgG1.02 indexNormalImmune >0.99[facility] on above:Result Comment: Non-immune <0.90 Equivocal 0.90 - 0.99 Immune >0.99Performed By: #### RUBIGG ####[facility] [address]yeid[address]qy[address] [place] [address]Dr. Edward Engle AUTO DIFFon 82-02-9363[facility] # 0.0 103/ulNormal0.0-0.1The [facility] HospitalComment on above:Performed By: #### HIV12 #### [facility] [address] [place] [address] [address] Edward GillBasophils/100 WBC (Bld)0.3 %Normal0.2-2.0[facility] Comment on above:Performed By: #### HIV12 #### [facility] [address] [place] [address] Dr. Edward Traore #0.1 103/ulNormal0.0-0.7The [facility] HospitalComment on above: Performed By: #### HIV12 #### [facility] [address] [place] [address] Dr. Edward Calhounosinophils/100 WBC (Bld)0.6 %Critically low0.9-7.0The [facility] HospitalComment on above:Performed By: #### HIV12 #### [facility] [address] [place] [address] Dr. Edward Calhounrythrocyte distribution width (RBC) [Ratio]14.1 %Ikxzrz87.0-15.0 The [facility] HospitalComment on above:Performed By: #### HIV12 #### [facility] [address] [place] [address] Dr. Edward GillHematocrit (Bld) [Volume fraction]36.2 %Ghayri04.0-48.0The [facility] HospitalComment on above:Performed By: #### HIV12 #### [facility] [address] [place] [address] Dr. Edward GillHemoglobin (Bld) [Mass/Vol]12.5 g/fHQbtbtc56.0-16.0The [facility] HospitalComment on above:Performed By: #### HIV12 #### [facility] [address] [place] [address] [address] Edward Ray #0.05 10e3/ulCritically high0.00-0.03The [facility] Comment on above:Performed By: #### HIV12 #### [facility] [address] [place] [address] [address] Edward Ray %0.4 %Normal0.0-0.5The [facility] HospitalComment on above: Performed By: #### HIV12 #### [facility] [address] [place] [address] [address] Edward Velásquez #2.7 103/ulNormal1.2-3.8The [facility] HospitalComment on above:Performed By: #### HIV12 #### [facility] [address] [place] [address] Dr. Edward Alvarezhocytes/100 WBC (Bld)23.2 %Blmyht71.5-60.0The [facility] HospitalComment on above:Performed By: #### HIV12 #### [facility] [address] [place] [address] [address] Edward SimmonsUAL DIFF REQNONormalThe [facility] HospitalComment on above: Performed By: #### HIV12 #### [facility] [address] [place] [address] [address] Edward June (RBC) [Entitic mass]30.6 amBrcfkv78.7-34.0The [facility] HospitalComment on above:Performed By: #### HIV12 #### [facility] [address] [place] [address] Dr. Edward June (RBC) [Mass/Vol]34.5 g/uUGwfjzn14.9-35.2The [facility] HospitalComment on above:Performed By: #### HIV12 #### [facility] [address] [place] [address] Dr. Edward June (RBC) [Entitic vol]88.7 yYReildo60.0-99.0The [facility] HospitalComment on above:Performed By: #### HIV12 #### [facility] [address] [place] [address] Dr. Edward Rosas #0.7 103/ulNormal0.3-0.8The [facility] HospitalComment on above:Performed By: #### HIV12 #### [facility] [address] [place] [address] Dr. Edward Ignacioocytes/100 WBC (Bld)5.8 %Normal1.7-12.0[facility] Comment on above:Performed By: #### HIV12 #### [facility] [address] [place] [address] Dr. Edward Guevara #8.0 103/ulCritically high1.4-6.5ThKnox Community Hospital Comment on above:Performed By: #### HIV12 #### [facility] [address] [place] [address] Dr. Edward Moralesutrophils/100 WBC (Bld)69.7 %Ztvgie11.0-75.0The [facility] HospitalComment on above:Performed By: #### HIV12 #### [facility] [address] [place] [address] Dr. Edward Medellin mean volume (Bld) [Entitic vol]9.3 fLCritically low 9.5-13.5ThKnox Community HospitalComment on above:Performed By: #### HIV12 #### [facility] [address] [place] [address] Dr. Edward GillPLT338 103/rrNbgxij993-623Cli [facility] HospitalComment on above: Performed By: #### HIV12 #### [facility] [address] [place] [address] Dr. Edward GillRBC4.08 106/ulCritically low4.20-5.40The [facility] HospitalComment on above:Performed By: #### HIV12 #### [facility] [address] [place] [address] Dr. Edward GillWBC11.4 103/ulCritically high4.0-11.0[facility] on above:Performed By: #### HIV12 #### [facility] [address] [place] [address] [address] Edward GillCULTURE URINEon 41-08-1803FWQHBXP URINECulture Observations: LIGHT GROWTH OF MIXED GENITAL MARTHA. NO POTENTIAL PATHOGENS SEEN.NormalThe [facility] HospitalComment on above:Performed By: #### URCX #### [facility] [address] [place] [address] [address] Edward GillGLYCOHEMOGLOBIN A1Con 14-98-1446HCH RECOMMENDATIONSEE BELOWNormal The [facility] HospitalComhurley medical center on above:Result Comment: ADA RECOMMENDED LIMIT 4.0 - 6.0 ADA THERAPEUTIC TARGET < 7.0 ACTION SUGGESTED > 7.0Performed By: #### A1C #### [facility] [address] [place] [address] Dr. Edward GillGlucose [Mass/Vol]117 mg/dLNoMercy Health Anderson HospitalComhurley medical center on above:Performed By: #### A1C #### [facility] [address] [place] [address] Dr. Edward GillHbA1c (Bld) [Mass fraction]5.7 %Normal4.5-6.2[facility] on above:Performed By: #### A1C #### [facility] [address] [place] [address] Dr. Edward Nair BOX TEST PT SEND OUTon 82-53-1260QEBY TO REF LAB10/25/2021 NormalThe [facility] on above:Performed By: #### HIV12 #### [facility] [address] [place] [address] Dr. Edward GillTSHon 79-86-2972UTW1.700 uIU/mLNormal0.358-3.740The [facility] on above:Performed By: #### TSH ####[facility] [address] [place] [address]Dr.Yilan GillTYPE AND SCREEN on 02-11-3514NYGC AND SCREENNegativeNormalThe Piyush HospitalComment on above: Performed By: #### TNS ####[facility] [address] [place], [place] [address]NpDr.Yilan Sherwood PREG TVon 94-54-6422NM PREG TV EXAMINATION: US PREG TV HISTORY: [...] Electronically authenticated by: HUMERA KIM Date: 2021-09-23 10:27The Christ HospitalPREG QUANT HCGon 10-76-0787BKD NASVI7616 mIU/mLNormalOhiohealth Grove City Methodist HospitalComment on above:Performed By: #### HIV12 #### [facility] [address] [place] [address] [address] Edward GillAdena Pike Medical CenterComment on above: Result Comment: 5-50 0-1 WEEK 40-300 1-2 WEEKS 100-1,000 2-3 WEEKS 500-6,000 3-4 WEEKS 5,000-200,000 1-2 MONTHS 10,000-100,000 2-3 MONTHS 3,000-50,000 2ND TRIMESTER 1,000-50,000 3RD TRIMESTERPerformed By: #### HIV12 #### [facility] [address] [place] [address] [address] Edward GillCHEMISTRYOrdered By: SYSTEM SYSTEM on 16-98-0058Rhwwz gap [Moles/Vol]15 mmol/LNormal6 - 16 mEq/LFTMC RemisolCalcium [Mass/Vol]9.5 mg/dL Normal8.9 - 11.1 mg/dLMERCY HOSP[facility] [place] RemisolChloride [Moles/Vol]102 mmol/CAmiolp066 - 111 mmol/LFTMC RemisolCO2 [Moles/Vol]22 mmol/GHayjzn79 - 31 mmol/LFTMC Remisol Creatinine [Mass/Vol]0.9 mg/dLNormal0.5 - 1.3 mg/dLFTMC RemisolGFR/1.73 sq M.predicted among blacks MDRD (S/P/Bld) [Vol rate/Area]mL/min/1.73 f4Dsupcc >=59mL/min/1.73 m2FT Chem SGFR/1.73 sq M.predicted among non-blacks MDRD (S/P/Bld) [Vol rate/Area]mL/min/1.73 u1Axgfwh>=59mL/min/1.73 m2FT Chem S Glucose [Mass/Vol]85 mg/eLCudkoh04 - 199 mg/dLFTMC RemisolPotassium [Moles/Vol] 3.9 mmol/LNormal3.5 - 5.3 mmol/LFTMC RemisolSodium [Moles/Vol]135 mmol/LNormal 135 - 145 mmol/LFTMC RemisolUrea nitrogen [Mass/Vol]6 mg/dLNormal5 - 21 mg/dL FT RemisolUrea nitrogen/Creatinine [Mass ratio]7 mg/mgLow10 - 20FTMC Remisol HEMATOLOGYOrdered By: SYSTEM SYSTEM on 38-38-3753Nzpxhobrn/100 WBC (Bld)0.5 % Normal0.0 - 2.0 %[facility] HemeAutoSSBasophils/Leukocytes Auto (Bld) [Pure # fraction]0.0 E9/LNormal0.0 - 0.2 E9/LFTMC HemeAutoSSEosinophils/100 WBC (Bld)0.6 %Normal0.0 - 8.0 %[facility] HemeAutoSSEosinophils/Leukocytes Auto (Bld) [Pure # fraction]0.1 E9/LNormal0.0 - 0.5 E9/LFTMC HemeAutoSSLymphocytes/100 WBC (Bld) 36.8 %Ohngpm47.0 - 50.0 %[facility] HemeAutoSSLymphocytes/Leukocytes Auto (Bld) [Pure # fraction]2.9 E9/LNormal1.0 - 4.0 E9/LFTMC HemeAutoSSMonocytes/100 WBC (Bld)8.7 %Normal4.0 - 14.0 %[facility] HemeAutoSSMonocytes/Leukocytes Auto (Bld) [Pure # fraction]0.7 E9/LNormal0.2 - 1.0 E9/LFTMC HemeAutoSSNeutrophils/100 WBC (Bld) 53.4 %Atfanl07.0 - 75.0 %[facility] HemeAutoSSNeutrophils/Leukocytes Auto (Bld) [Pure # fraction]4.2 E9/LNormal2.0 - 7.5 E9/LFTMC HemeAutoSSHEMATOLOGYOrdered By: Isha Yates on 62-40-4311Zfkmpyzlncn distribution width (RBC) [Ratio]14.6 %High10.9 - 14.2 %[facility] HemeAutoSSHematocrit (Bld) [Volume fraction]36.4 %Normal 34.0 - 46.0 %[facility] HemeAutoSSHemoglobin (Bld) [Mass/Vol]12.6 g/iNJqspin04.0 - 16.0 gm/dLFTMC HemeAutoSSMCH (RBC) [Entitic mass]29.9 faUwjcna75.0 - 34.0 pgFTMC HemeAutoSSMCHC (RBC) [Mass/Vol]34.6 g/pHUhrbmq71.4 - 36.0 gm/dLFTMC HemeAutoSS MCV (RBC) [Entitic vol]86.6 tFCzerke73.0 - 100.0 fLFTMC HemeAutoSSPlatelet mean volume (Bld) [Entitic vol]8.2 fLNormal6.4 - 10.8 fLFTMC HemeAutoSSPlatelets (Bld) [#/Vol]367.0 E9/GYeqihf152.0 - 500.0 E9/LFTMC HemeAutoSSRBC (Bld) [#/Vol] 4.2 E12/LLow4.3 - 5.9 E12/LFTMC HemeAutoSSWBC corrected for nucl RBC Auto (Bld) [#/Vol]7.9 E9/LNormal4.0 - 11.0 E9/LFTMC HemeAutoSSPREG QUANT HCGon 08-29-2021 HCG SEGEW044 mIU/mLNormalThe [facility] HospitalComment on above:Performed By: #### PREGQNT ####[facility] [address] [place] [address]Dr. Edward MORA [facility] HospitalComhurley medical center on above:Result Comment: 0-1 WEEK 40-300 1-2 WEEKS 100-1,000 2-3 WEEKS 500- 6,000 3-4 WEEKS 5,000-200,000 1-2 MONTHS 10,000-100,000 2-3 MONTHS 3,000-50,000 2ND TRIMESTER 1,000-50,000 3RD TRIMESTERPerformed By: #### PREGQNT ####[facility] Tbaifkg[address] [place], [place] [address]Dr. Edward Cross QUANT HCGon 88-65-9231VNL QUANT99 mIU/mLNormalOhiohealth Grove City Methodist HospitalComment on above:Performed By: #### HIV12 #### [facility] [address] [place] [address] Dr. [address] [facility]A [facility] HospitalComment on above: Result Comment: 0-1 WEEK 40-300 1-2 WEEKS 100-1,000 2-3 WEEKS 500-6,000 3-4 WEEKS 5,000-200,000 1-2 MONTHS 10,000-100,000 2-3 MONTHS 3,000-50,000 2ND TRIMESTER 1,000-50,000 3RD TRIMESTERPerformed By: #### HIV12 #### [facility] [address] [place] [address] Dr. Edward Cross QUANT HCGon 11-29-9771YNC QUANT37 mIU/mLNormalOhiohealth Grove City Methodist HospitalComment on above:Performed By: #### PREGQNT ####[facility] Hftytuf[address] [place], [place] [address]Dr. Edward MORA [facility] HospitalComhurley medical center on above:Result Comment: 50 0-1 WEEK 40-300 1-2 WEEKS 100-1,000 2-3 WEEKS 500-6,000 3-4 WEEKS 5,000-200,000 1-2 MONTHS 10,000-100,000 2-3 MONTHS 3,000-50,000 2ND TRIMESTER 1,000-50,000 3RD TRIMESTERPerformed By: #### PREGQNT ####[facility] Tfg[address] [place], [place] [address]WyDr. Leon ChangCHEMISTRYOrdered By: SYSTEM SYSTEM on 89-97-3460Oxnqxlx [Mass/Vol]4.5 g/dLNormal3.3 - 5.0 gm/dLFTMC Remisol Albumin/Globulin [Mass ratio]1.2 {ratio}Normal1.1 - 2.2[facility] RemisolALP [Catalytic activity/Vol]53 [iU]/nVupwjy02 - 98 Int._Unit/LFTMC RemisolALT No additional P-5'-P [Catalytic activity/Vol]24 [iU]/dNormal6 - 46 Int._Unit/LFTMC RemisolAnion gap [Moles/Vol]13 mmol/LNormal6 - 16 mEq/LFTMC RemisolAST [Catalytic activity/Vol]20 [iU]/dNormal5 - 43 Int._Unit/LFTMC RemisolBilirubin [Mass/Vol]0.6 mg/dLNormal0.0 - 1.1 mg/dLFTMC RemisolCalcium [Mass/Vol]9.4 mg/dL Normal8.9 - 11.1 mg/dLFTMC RemisolChloride [Moles/Vol]97 mmol/WUha526 - 111 mmol/LFTMC RemisolCO2 [Moles/Vol]24 mmol/GMvuxnz28 - 31 mmol/LFTMC Remisol Creatinine [Mass/Vol]0.8 mg/dLNormal0.5 - 1.3 mg/dLFTMC RemisolGFR/1.73 sq M.predicted among blacks MDRD (S/P/Bld) [Vol rate/Area]mL/min/1.73 e7Mcpzid >=59mL/min/1.73 m2FTMC Chem SGFR/1.73 sq M.predicted among non-blacks MDRD (S/P/Bld) [Vol rate/Area]mL/min/1.73 y3Iismkr>=59mL/min/1.73 m2FT Chem S Globulin (S) [Mass/Vol]3.7 g/dLNormal1.4 - 4.0 gm/dLFTMC RemisolGlucose [Mass/Vol]74 mg/oDGdzmhx85 - 199 mg/dLFTMC RemisolMagnesium [Mass/Vol]2.0 mg/dL Normal1.3 - 2.4 mg/dLFTMC RemisolPotassium [Moles/Vol]3.5 mmol/LNormal3.5 - 5.3 mmol/LFTMC RemisolProtein [Mass/Vol]8.2 g/dLHigh6.0 - 7.8 gm/dLFTMC Remisol Sodium [Moles/Vol]130 mmol/UPaq580 - 145 mmol/LFTMC RemisolTSH Qn4.56 m[IU]/L Normal0.34 - 5.60 mcIU/mLFTMC RemisolUrea nitrogen [Mass/Vol]7 mg/dLNormal5 - 21 mg/dLFTMC RemisolUrea nitrogen/Creatinine [Mass ratio]9 mg/mgLow10 - 20FT[facility] RemisolHEMATOLOGYOrdered By: SYSTEM SYSTEM on 15-86-7179Cofroflxw/100 WBC (Bld) 0.3 %Normal0.0 - 2.0 %[facility] HemeAutoSSBasophils/Leukocytes Auto (Bld) [Pure # fraction]0.0 E9/LNormal0.0 - 0.2 E9/LFTMC HemeAutoSSEosinophils/100 WBC (Bld)0.5 %Normal0.0 - 8.0 %[facility] HemeAutoSSEosinophils/Leukocytes Auto (Bld) [Pure # fraction]0.0 E9/LNormal0.0 - 0.5 E9/LFTMC HemeAutoSSLymphocytes/100 WBC (Bld) 35.9 %Ojhqeq26.0 - 50.0 %[facility] HemeAutoSSLymphocytes/Leukocytes Auto (Bld) [Pure # fraction]3.2 E9/LNormal1.0 - 4.0 E9/LFTMC HemeAutoSSMonocytes/100 WBC (Bld)8.8 %Normal4.0 - 14.0 %[facility] HemeAutoSSMonocytes/Leukocytes Auto (Bld) [Pure # fraction]0.8 E9/LNormal0.2 - 1.0 E9/LFTMC HemeAutoSSNeutrophils/100 WBC (Bld) 54.5 %Oqkvmf65.0 - 75.0 %[facility] HemeAutoSSNeutrophils/Leukocytes Auto (Bld) [Pure # fraction]4.8 E9/LNormal2.0 - 7.5 E9/LFTMC HemeAutoSSHEMATOLOGYOrdered By: Trena Castro on 98-72-0667Mnxmhhasjet distribution width (RBC) [Ratio]14.1 % Lzxawi38.9 - 14.2 %[facility] HemeAutoSSHematocrit (Bld) [Volume fraction]38.5 %Normal 34.0 - 46.0 %[facility] HemeAutoSSHemoglobin (Bld) [Mass/Vol]13.1 g/pSMncoig78.0 - 16.0 gm/dLFTMC HemeAutoSSMCH (RBC) [Entitic mass]29.4 ivSfrrat26.0 - 34.0 pgFTMC HemeAutoSSMCHC (RBC) [Mass/Vol]34.1 g/lMFpdyhc71.4 - 36.0 gm/dLFTMC HemeAutoSS MCV (RBC) [Entitic vol]86.0 hXGkawto36.0 - 100.0 fLFTMC HemeAutoSSPlatelet mean volume (Bld) [Entitic vol]8.3 fLNormal6.4 - 10.8 fLFTMC HemeAutoSSPlatelets (Bld) [#/Vol]334.0 E9/KXmukte194.0 - 500.0 E9/LFTMC HemeAutoSSRBC (Bld) [#/Vol] 4.5 E12/LNormal4.3 - 5.9 E12/LFTMC HemeAutoSSWBC corrected for nucl RBC Auto (Bld) [#/Vol]8.9 E9/LNormal4.0 - 11.0 E9/LFTMC HemeAutoSSOB/PHYSICIST CRYOGENICS - Office Visiton 46-35-3378QL/PHYSICIST CRYOGENICS - Office VisitChief ComplaintComplains of: heavy bleeding 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, Susie Salomon, ROSE History of Present IllnessSanna [...] stroke 07/2017 PSH as above POB- 2007 [id number] 17week loss subchorionic h bfifyelcj1268 39weeks bleeding at 5weeks for 2 weeks diet 9298-8192 calories exercise none 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 Review [...] History History of Oral Surgery Tooth Extraction [place] Tooth Family History No pertinent family history Family history of cerebrovascular accident (CVA) (V17.1) (Z82.3) Family history of diabetes mellitus (V18.0) (Z83.3) Family history of cerebrovascular accident (CVA) (V17.1) (Z82.3) Family history of cerebrovascular accident (CVA) (V17.1) (Z82.3) Allergies No Known Drug Allergies Recorded By: Susie Salomon; 11/08/2017 4:19:42 PM Current Meds Ciprofloxacin HCl - 500 MG Oral Tablet;Ther apy: 32Kgt5651 to Recorded Dispense: 0 Days ; #: Sufficient Tablet; Refill: 0; BUBBA = N; Record; Last Updated By: Susie Salomon; 11/08/2017 4:19:42 PM Plavix 75 MG Oral Tablet;Therapy: 21Kki0306 to Recorded Dispense: 0 Days ; #: Sufficient Tablet; Refill: 0; BUBBA = N; Record; Last Updated By: Susie Salomon; 11/08/2017 4:19:42 PM Provera 10 MG Oral Tablet;Therapy: 94Bnr7875 to Recorded Dispense: 0 Days ; #: Sufficient Tablet; Refill: 0; BUBBA = N; Record; Last Updated By: Susie Salomon; 11/08/2017 4:19:42 PM Vitals Vital Signs Recorded: 08Nov2017 04:50VLSdibperr465Jrcytlmgt16Iwmalz3 ft 6 nvBbyspn501 lb BMI Tlmmshlzak84.57BSA Calculated1.0BVI39Wio6060Xxec Scale6-7 Physical ExamConstitutional: Alert and in no acute distress. Well developed, well nourished. Head and Face: Head and face: Normal. Psychiatric: Alert and oriented x 3. Affect normal to patient baseline. Mood: Appropriate. 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 Encouraged exercise. Signatures Electronically signed by : RICHARD Ulrich; Nov 12 2017 8:46PM EST (Author)NormalUH TouchworksAntiphospholipid Abs IgG/IgMon 59-60-1187Wywrrnrjjluvdsep Ab-OfW507 GPLCritically high0-14[facility] HospitalComment on above:Result Comment: INTERPRETIVE INFORMATION: High- Specificity Antiphospholipid Antibody,IgG14 GPL or less......Hbiysfjp57 26 GPL.........Indeterminate Suggest repeat testing in 12 weeks27 GPL or greater. ..PositiveHigh-specificity antiphospholipid IgG and IgM antibodies are directedagainsta mixture of phosphatidylserine, phosphatidic acid, and beta- 2glycoprotein 1antigens. These antibodies are more specific than cardiolipin IgG andIgMantibodies in the diagnosis of antiphospholipid syndrome (APS). Antiphospholipid Ab-IgM6 MPLNormal0-[facility] HospitalComment on above:Result Comment: INTERPRETIVE INFORMATION: High-Specificity Antiphospholipid Antibody,IgM14 MPL or less......Zrwvmyqn16 37 MPL.........Indeterminate Suggest repeat testing in 12 weeks38 MPL or greater. ..PositiveHigh-specificity antiphospholipid IgG and IgM antibodies are directedagainsta mixture of phosphatidylserine, phosphatidic acid, and beta- 2glycoprotein 1antigens. These antibodies are more specific than cardiolipin IgG andIgMantibodies in the diagnosis of antiphospholipid syndrome (APS).Performed by [facility],[address] [place] [address],[place] [address] afm.[employer], Zhang Bledsoe MD - Lab. DirectorPRESBYTERIAN SANTA FE [facility] Miscellaneous test 1on 05-28-2017 Miscellaneous Test 1SEE NOTENoOrthoColorado Hospital at St. Anthony Medical CampusComment on above: Result Comment: Test name Result [...] Additional information and recommendations for testingmay befound [email or web address] ndex.html.Performed by [facility],[address] [place] [address] trz.[employer],Zhang Bledsoe MD - Lab. DirectorCardiolipin Antibodies, IgA, IgG, IgMon 08-48-1954Dzwmccdigyp Ab IgA0 APLNormal0-11[facility] HospitalComment on above:Result Comment: INTERPRETIVE INFORMATION: Cardiolipin Antibodies, IgA0-11 APL: Ogaoqdoa50-13 APL: In ujzouwemkes52-12 APL: Low to Moderately Whjsjhcn43 APL or above: High PositivePerformed by [facility],[address] [place] [address] vvs.[employer], Zhang Bledsoe MD - Lab. DirectorCardiolipin Ab IgG 111 GPLCritically high0-14[facility] HospitalComment on above:Result Comment: INTERPRETIVE INFORMATION: Anti-Cardiolipin IgG Ab0-14 GPL: Fnbqkrph61- 19 GPL: Txaklrbgzsvsw09-53 GPL: Low to Moderately Subtpkaz94 GPL or above: High PositiveThe persistent presence [...] other criteria phospholipid antibody tests.Cardiolipin Ab IgM10 MPLNormal0-12[facility] HospitalComment on above:Result Comment: INTERPRETIVE INFORMATION: Anti-Cardiolipin IgM0-12 MPL: Qfecyuqs07-49 MPL: Cozczxoqkncxk97-13 MPL: Low to Moderately Ssooohhr04 MPL or above: High PositiveThe persistent presence [...] and/orothercriteria phospholipid antibody tests.Jennifer-Simpson Virus by PCRon 95-50-6650Wuwlevl Simpson Virus by PCRNot DetectedNormalMercy Regional Medical CenterComment on above:Result Comment: NOT DETECTED - A negative result does not rule out thepresence of PCR inhibitors inthe patient specimen or assayspecific nucleic acid in concentrations below the level ofdetection bythe assay.INTERPRETIVE INFORMATION: Jennifer Simpson Virus by PCRTest developed and characteristics determined by [facility]. SeeCompliance Statement A: [employer]/CSPerformed by [facility],[address] [facility] [place] [address] lsh.[employer], Zhang Bledsoe MD - Lab. DirectorUc Health Simpson Virus SourceCSFNoOrthoColorado Hospital at St. Anthony Medical CampusOligoclonal Band Profileon 07-57-1359Xhyspbc6181 mg/jDZubkrg7777-4632NlmqnVail Health HospitalAlbumin 5.2 ratioNormal0.0-9.0[facility] HospitalAlbumin, CSF20 mg/dLNormal 0-35[facility] HospitalCSF IgG Synthesis Rate<0.0Normal<=8.0[facility] HospitalCSF Oligoclonal BandsNegativeNormalNegativeVail Health HospitalCSF Oligoclonal Bands Number0 BandsNormal0-1MHealthSouth Rehabilitation Hospital of LittletonGlobulin1060 mg/gVYtmsxc525-4104SbyriVail Health Hospital Comment on above:Result Comment: REFERENCE INTERVAL: Immunoglobulin GAccess complete set of age- and/or gender-specific reference intervalsforthis test in the nuPSYS Laboratory Test Directory ([employer]).IgG Index0.45 ratioNormal 0.28-0.66[facility] HospitalImmunoglobulin G CSF2.5 mg/dLNormal0.0-6.0 [facility] HospitalINR Coag RelTime (Bld)0.12 {INR}Normal0.09-0.25 [facility] HospitalInterpretationSee NoteNoOrthoColorado Hospital at St. Anthony Medical CampusComment on above:Result Comment: Isoelectric focusing/immunofixation reveals no oligoclonal bands ineitherthe CSF orthe serum. This is considered to be a negative result foroligoclonal bands. Approximately 5 percentof patients with clinicallydefinitive multiple sclerosis will have a negative result.Performed by [facility],[address] [facility] [place] [address] zjg.[employer], Zhang Bledsoe MD - Lab.DirectorMyelin Basic Protein, CSFon 31-98-1395Hvmcxx Basic Protein1.82 ng/mLNormal0.00-5.50[facility] HospitalComment on above:Result Comment: INTERPRETIVE INFORMATION: Myelin Basic ProteinTest developed and characteristics determined by [facility]. SeeCompliance Statement D: [address].[email or web address]./CSPerformed by [facility],[address] [facility] [place] [address] bbc.[employer], Zhang Bledsoe MD - Lab. [facility] Miscellaneous test 1on 67-39-3075Wlcyuqq Prompt 53172YxpiobIdvoqCommunity HospitalComment on above:Result Comment: Corrected result; [place] [id number] on 05/25/2017 at 13:14 by V/VEE [facility] Miscellaneous test 1on 74-68-3010Sgxjcac Dmshel22242CqffisYasnjCommunity HospitalComment on above:Result Comment: DS DNACSF Cell Counton 05-25-2017 CSF no diffsee [facility] HospitalComment on above:Result Comment: Differential not performed -Total Nucleated cellsCSF AppearanceClear Community HospitalCSF ColorColorlessCommunity HospitalCSF Tube NumberTube 4Community HospitalFluid Clot Evaluationsee belowCommunity HospitalComment on above:Result Comment: No Clots SeenTotal Nucleated Cells0 K/uLNormal0-8[facility] HospitalTotal Red Blood Cells0 K/uLCommunity HospitalCSF Glucose on 53-14-8606AOK Bnfdqng12 mg/aAMtfebn90-14NslgrVail Health HospitalCSF Proteinon 48-41-9894KHH Ttsabld52 mg/bRAyxjvv94-64ZrdjmVail Health Hospital Creatine Kinaseon 16-64-9776Tbeyljnx kinase (CK)71 U/LNormal0-170[facility] HospitalCulture, CSFon 90-71-7001Lzxyyxw, CSFORDER#: [id number] ORDERED BY: VERNA MONGE: CSF (Spinal Fluid) CSF COLLECTED: 05/25/17 13:25ANTIBIOTICS AT AMARILYS.: RECEIVED : 05/25/17 13:25Gram Stain Direct FINAL 05/25/17 15:30 No WBC's, No organisms seenCulture, CSF FINAL 05/28/17 09:04 No growth at 72 hours Community HospitalFL LUMBAR PUNCTURE DIAGon 42-24-6230WT LUMBAR PUNCTURE DIAGFL LUMBAR PUNCTURE DIAG : [...] ROSCOPIC-GUIDED LUMBAR PUNCTURE.Interpreted by:NIKITA Mezaigned by:Humera Covarrubias MD05/25/17inal resultNormalVail Health Hospital Homocysteineon 93-47-1883Fzdojysnfogs0.1 umol/LNormal0.0-15.0[facility] HospitalPartial Thromboplastin Timeon 43-42-7539lAES61.7 hJovwcr99.6-35.4 [facility] HospitalComment on above:Result Comment: Heparin Therapeutic Range: 38.8 - 54.6 seconds.Prothrombin Timeon 73-50-6038CBP Coag RelTime (PPP)1.0 {INR}Community HospitalComment on above:Result Comment: Recommended INR therapeutic [...] secProthrombin time (PT) Coag time (PPP) 10.7 sNormal8.1-13.7[facility] Vital Signs Date TimeVital SignValuePerforming HwmcmlsjiIszvwhzf15-46-7776 09:26-0400Body mass index (BMI) [Ratio]33.98 kg/r6Bfmqm Montez DO Work Phone: [facility]'sMhbzjbusyw97-27-1386 09:26-0400Body euelui09.48 kgCorey Montez DO Work Phone: [facility]'sTndrgpxiks15-03-4705 09:26-0400Diastolic blood adrxynpc24 mm[Hg]Wilton Montez DO Work Phone: [facility] John'sMzengakeja12-35-1544 09:26-0400Systolic blood nzlahelj693 mm[Hg][facility] [employer]All Work Phone: [facility] John'sZyhlnlzrts34-74-3013 13:44-0400Body ojkala909.6 cmApreet Callahan MD MPH Work Phone: 1(579)[address] [place], [place] 2540310-20-2025 13:44-0400Body mass index (BMI) [Ratio]33.73 kg/o2AjmndSam Callahan MD MPH Work Phone: 1(360)[address]10-20-2025 13:44-0400Body ofbqwo04.8 kgSam Callahan MD MPH Work Phone: 1(558)[address]10-20-2025 13:44-0400Diastolic blood thpnxcej06 mm[Hg]Sam Callahan MD MPH Work Phone: 1(777)[address]10-20-2025 13:44-0400Heart rate 79 /Héctor Callahan MD MPH Work Phone: 1(590)8-[address] [place], [place] 6356010-20-2025 13:44-0400 Respiratory rate18 /Héctor Callahan MD MPH Work Phone: 1(602)8-[address] [place], [place] 6356010-20-2025 13:44-0400Systolic blood mm[Hg]Sam Callahan MD MPH Work Phone: [facility]10-13-2025 10:45-0400Body mass index (BMI) [Ratio]34.12 kg/b5Ncppc Montez DO Work Phone: 1(269)892-[address] [place], [place] [address]Qwdcogjydk91-28-6343 10:45-0400Body elgcdk25.89 kgCorey Montez DO Work Phone: 1(793)287-[address] [place], [place] [address]Ydvpnhjzja39-65-7109 10:45-0400Diastolic blood mqcertas28 mm[Hg]Wilton Montez DO Work Phone: 1(646)[address] [place], [place] 6565810-13-2025 10:45-0400Systolic blood xsdwnjfu985 mm[Hg]Wilton Montez DO Work Phone: 1([phone])[address] [place], [place] 6565809-22-2025 09:30-0400Body mass index (BMI) [Ratio]34.14 kg/d9Hfwaj Montez DO Work Phone: 1(966)[address] [place], [place] 6565809-22-2025 09:30-0400Body sybxch44.94 kgCorey Montez DO Work Phone: 1(940)[facility] [place], [place] [address]Xfrefzvtcf60-17-9657 09:30-0400Diastolic blood jdsvyybl19 mm[Hg]Wilton Montez DO Work Phone: 1(863)[facility] [place], [place] [address]Sdomerrxpw14-87-4390 09:30-0400Systolic blood yrzoigfr435 mm[Hg]Wilton Montez DO Work Phone: 1(441)[address] [place], [place] 6565809-08-2025 15:14-0400Body mass index (BMI) [Ratio]33.73 kg/h9Trlje Montez DO Work Phone: 1(654)[facility]-[address] [place], [place] [address]Ifgacrkdnv50-61-7767 15:14-0400Body .8 kg Wilton Montez DO Work Phone: 1(407)[facility] [place] [address]-08-2025 15:14-0400Diastolic blood urtjcecl59 mm[Hg]Wilton Montez DO Work Phone: 1(607)[facility] [place] [address]-08-2025 15:14-0400Systolic blood epggtbzy557 mm[Hg]Wilton Herrmann DO Work Phone: [facility]'sNjskklrjly59-47-1822 14:22-0400Body mass index (BMI) [Ratio]33.89 kg/e8GorgwhguMukul Noyola MD Work Phone: 1(237)[address] [place], [place] 7992209-04-2025 14:22-0400Body zdudkl45.25 kgMukul Noyola MD Work Phone: 1(674)[address] [place], [place] 3774509-04-2025 14:22-0400Diastolic blood jluanvpb00 mm[Hg]Mukul Noyola MD Work Phone: 1(937)[address] [place], [place] 3774509-04-2025 14:22-0400Systolic blood ulwwzmpc603 mm[Hg]Mukul Noyola MD Work Phone: 1(953)[address] [place], [place] 3774508-26-2025 11:34-0400Body brgcqu716.7 cmKatherine Negrete APRN.[employer] Work Phone: [facility]08-26-2025 11:34-0400Body mass index (BMI) [Ratio]33.57 kg/r9NulslKatherine Negrete APRN.[employer] Work Phone: [facility]08-26-2025 11:34-0400Body temperature 97.59 [degF]Katherine Negrete APRN.[employer] Work Phone: [facility]08-26-2025 11:34-0400Body vgptux58.4 kgKatherine Negrete APRN.[employer] Work Phone: [facility]08-26-2025 11:34-0400Diastolic blood pmmualtl29 mm[Hg]Katherine Negrtee APRN.[employer] Work Phone: [facility]08-26-2025 11:34-0400Heart rate80 /min Katherine Negrete APRN.[employer] Work Phone: [facility]08-26-2025 11:34-0400Respiratory rate 16 /minKatherine Negrete APRN.[employer] Work Phone: [facility]08-26-2025 11:34-4525VgL3% (BldA) [Mass fraction]98 %Katherine Negrete APRN.[employer] Work Phone: [facility]08-26-2025 11:34-0400Systolic blood mxpfules509 mm[Hg]Katherine Negrete APRN.[employer] Work Phone: [facility]08-14-2025 09:28-0400Body mass index (BMI) [Ratio]33.41 kg/b7Yipvy Montez DO Work Phone: [place] [address]Vwoicrziwa13-97-3349 09:28-0400Body fotnwj24.89 kgCorey Montez DO Work Phone: 1(535)791-[address] [place], [place] [address]Uegeazysuu12-30-1981 09:28-0400Diastolic blood fsggenlj53 mm[Hg]Wilton Montez DO Work Phone: 1(000)010-[address] [place] [address]-14-2025 09:28-0400Systolic blood rjumjzoi836 mm[Hg]Wilton Montez DO Work Phone: 1(786)913-[address] [place], [place] [address]Etecpfgdlg71-98-7356 10:53-0400Body mass index (BMI) [Ratio]33.57 kg/s3Xfqwc Montez DO Work Phone: 1(722)797-[address] [place], [place] [address]Oiacpuqsob61-04-4800 10:53-0400Body izjqhx37.35 kgCorey Montez DO Work Phone: 1(800)566-[address] [place], [place] [address]Ljwdhxkcxo80-78-5137 10:53-0400Diastolic blood qqwljefk96 mm[Hg]Wilton Montez DO Work Phone: 1(613)598-[address] [place], [place] [address]Bupjrtksjj15-93-1208 10:53-0400Systolic blood xmsjcdre661 mm[Hg]Wilton Montez DO Work Phone: 1(753)435-[address] [place], [place] [address]Wmrwdssxvm40-24-1708 13:07-0400Body mass index (BMI) [Ratio]33.73 kg/w0TiqsgdLorena Enciso RN Work Phone: 1(749)616-[address] [place], [place] [address]992207-23-2025 13:07-0400Body ryfiip85.8 kgLorena Enciso RN Work Phone: [facility]07-03-2025 09:32-0400Body mass index (BMI) [Ratio]33.81 kg/d9Bonit Montez DO Work Phone: [facility]'sOqoduytmli88-44-2727 09:32-0400Body syeoci85.03 kgCorey Montez DO Work Phone: [facility]'sWzlqzimwmw08-53-1613 09:32-0400Diastolic blood vuhqmuuf01 mm[Hg]Wilton Montez DO Work Phone: [facility] John'sKqyycmasgn00-78-7428 09:32-0400Systolic blood iaiapabc714 mm[Hg]Wilton Montez DO Work Phone: [facility]'sIflzmrvpls53-27-2375 14:23-0400Body mass index (BMI) [Ratio]33.46 kg/u0QgvsuKatherine Negrete APRN.[employer] Work Phone: [facility]07-01-2025 14:23-0400Body temperature 97 [degF]Katherine Negrete APRN.[employer] Work Phone: [facility]07-01-2025 14:23-0400Body yjlskw94.1 kgKatherine Negrete APRN.[employer] Work Phone: [facility]07-01-2025 14:23-0400Diastolic blood sadixmkj47 mm[Hg]Katherine Negrete APRN.[employer] Work Phone: [facility]07-01-2025 14:23-0400Heart rate82 /min Katherine Negrete APRN.[employer] Work Phone: [facility]07-01-2025 14:23-0400Respiratory rate 16 /minKatherine Negrete APRN.[employer] Work Phone: [facility]07-01-2025 14:23-8104UdX5% (BldA) [Mass fraction]100 %Katherine Negrete APRN.[employer] Work Phone: [facility]07-01-2025 14:23-0400Systolic blood qihjqagh729 mm[Hg]Katherine Penelope OCHOATOILE[employer] MOLDER Work Phone: [facility]06-05-2025 14:10-0400Body mass index (BMI) [Ratio]33.89 kg/m2[facility]06-05-2025 14:10-0400Body missul66.25 kgMer[facility]06-05-2025 14:10-0400Diastolic blood asldddrv99 mm[Hg][facility]06-05-2025 14:10-0400Systolic blood pzysobva991 mm[Hg][facility]03-27-2025 12:07-0400Body mass index (BMI) [Ratio]34.44 kg/l7Lanjp Montez DO Work Phone: [facility]'sXquxpfukcv15-15-0961 12:07-0400Body nagwsf77.8 kg Wilton Montez DO Work Phone: [facility] John'sUyhqkhcmqn58-82-8626 12:07-0400Diastolic blood jvihxxih88 mm[Hg]Wilton Montez DO Work Phone: [place] [address]Xpszuphjuo91-10-8183 12:07-0400Systolic blood yapwfwkl552 mm[Hg]Wilton Montez DO Work Phone: [facility] John'sGoftcxxaet80-33-4181 08:27-0500Blood Pressure LocationScott KAPLE 250-9464Yuxpcp-DmuweOhiohealth Grove City Methodist Hospital03-03-2025 08:27-0500Diastolic blood ysplpscc71 mm[Hg]Penelope CASAS [phone]-GgivuOhiohealth [facility]03-03-2025 08:27-0500Heart rate77 /minScott KAPLE [phone]-NjfcjOhiohealth [facility]03-03-2025 08:27-9196FjD5% (BldA) [Mass fraction]99 %Penelope CASAS [phone]-XcrupOhiohealth [facility]03-03-2025 08:27-0500Systolic blood jwotwlal873 mm[Hg]Penelope KAPLE [phone]-PpnzvOhiohealth [facility]02-24-2025 15:21-0500Body mass index (BMI) [Ratio]34.93 kg/i2Gvkyv Montez DO Work Phone: [facility]'[id number] 15:21-0500Body scesgv20.16 kgCorey Montez DO Work Phone: [facility]'sYmeqbuspre06-01-7751 15:21-0500Diastolic blood zwzwpfer18 mm[Hg]Wilton Montez DO Work Phone: [facility]'sPlefvreerq07-67-3499 15:21-0500Systolic blood njvfclma467 mm[Hg]Wilton Montez DO Work Phone: [facility]'sRxinyolezk22-52-5905 16:14-0500Blood Pressure LocationJESSICA BACA [phone]-TqgknCinc[facility] 06-19-2024 16:14-0500Diastolic blood yvqnapaj50 mm[Hg]JESSICA BACA [phone]-TzoblCincinnati [facility] 06-19-2024 16:14-0500Heart rate74 /minJESSICA BACA [phone]-YcamxCincinnati [facility] 06-19-2024 16:14-0881OhV3% (BldA) [Mass fraction]100 %JESSICA BACA [phone]-UghcoCincinnati [facility] 06-19-2024 16:14-0500Systolic blood oqpjbesu409 mm[Hg]JESSICA BACA [phone]-KpgbjCincinnati [facility] 06-09-2024 13:55-0500Blood Pressure LocationScott KAPLE [phone]-IwwxgOhiohealth [facility]02-10-2025 13:55-0500Diastolic blood isccjzfv03 mm[Hg]Penelope CASAS [phone]-CpgloOhiohealth Grove City [facility]02-10-2025 13:55-0500Heart rate78 /minScott PRAVEEN 849-2738Qkzfan-AjhbyOhiohealth Grove [facility]02-10-2025 13:55-5887MwI8% (BldA) [Mass fraction]99 %Penelope CASAS [phone]-ZsfisOhiohealth Grove City [facility]02-10-2025 13:55-0500Systolic blood jgjvebjc431 mm[Hg]Penelope CASAS 136-7478Gtvhwp-WlxhqOhiohealth Grove [facility]02-03-2025 11:43-0500Body mass index (BMI) [Ratio]34.51 kg/z6Dpedp Montez DO Work Phone: [facility]'sTktszvrnln15-49-2817 11:43-0500Body raxtjg68.98 kgCorey Montez DO Work Phone: [facility]'sQvpfagyixc46-38-0876 11:43-0500Diastolic blood lbelycrq52 mm[Hg]Wilton Montez DO Work Phone: [facility]'sPhskbjwtjz67-95-5321 11:43-0500Systolic blood oefdtcbu004 mm[Hg]Wilton Montez DO Work Phone: [facility] John'sVsescxjiyw54-43-2117 13:07-0500Body .7 cmVramos Calix MD Work Phone: [facility]01-29-2025 13:07-0500Body mass index (BMI) [Ratio]35.02 kg/w2OdpitKristofer Calix MD Work Phone: [facility]01-29-2025 13:07-0500Body temperature 97.59 [degF]Kristofer Calix MD Work Phone: [facility]01-29-2025 13:07-0500Body omziqk85.5 kgKristofer Calix MD Work Phone: [facility]01-29-2025 13:07-0500Diastolic blood pvixmtna73 mm[Hg]Kristofer Calix MD Work Phone: [facility]01-29-2025 13:07-0500Heart rate72 /min Kristofer Calix MD Work Phone: [facility]01-29-2025 13:07-0500Respiratory rate 16 /minKristofer Calix MD Work Phone: [facility]01-29-2025 13:07-4138XpX0% (BldA) [Mass fraction]99 %Kristofer Calix MD Work Phone: [facility]01-29-2025 13:07-0500Systolic blood vhhpgrud839 mm[Hg]Kristofer Calix MD Work Phone: [facility]01-07-2025 14:40-0500Body mass index (BMI) [Ratio]35.41 kg/l5Kpltp Montez DO Work Phone: [facility] John'sGsimcsvcep89-94-5811 14:40-0500Body ulcxuk16.52 kgCorey Montez DO Work Phone: [facility]'sSqeqfiywts21-05-1157 14:40-0500Diastolic blood psievdfd92 mm[Hg]Wilton Montez DO Work Phone: [facility]'sXdowdpiizy71-07-6456 14:40-0500Systolic blood vbfmqxoe607 mm[Hg]Wilton Montez DO Work Phone: [facility] John'sOsfwullyvf88-26-8806 10:57-0500Body mass index (BMI) [Ratio]35.85 kg/m2[facility]12-06-2024 10:57-0500Body smsmle588.75 kgNoMercy Hospital Washington10-08-2024 13:29-0400Blood Pressure LocationScott KAPLE [phone]-AoapqHolmes County [facility] Primary Upus55-72-3854 13:29-0400Body wgahrevaxtf02.06 [degF]Penelope CASAS [phone]-Ghhxm[address] [place], [place] 4430210-08-2024 13:29-0400Diastolic blood qmonjwgg12 mm[Hg]Penelope STYLESLE 474-5466Hffeas-Pfynn[address] [place], [place] 4430210-08-2024 13:29-0400Heart rate76 /minScott KAPLE [phone]-Wnjve[address] [place], [place] 4430210-08-2024 13:29-0400Respiratory rate16 /minScott STEPHANILE 457-1490Xumgks-Ijpjf[address] [place], [place] 4430210-08-2024 13:29-3861NdI8% (BldA) [Mass fraction]99 %Penelope CASAS 465-1733Ocwifl-Yetfl[address] [place], [place] 4430210-08-2024 13:29-0400Systolic blood qyqoxirr217 mm[Hg]Penelope CASAS [phone]-Ajlaw[address] [place], [place] 4430210-05-2024 14:39-0400Blood Pressure LocationPreT[facility]ijew[facility] [phone]-Hgsbf[address] [place], [place] 6303610-05-2024 14:39-0400Body kwzxfqhdija56.06 [degF]Anni Gudijewish maternity hospitalla 396-8537Vxndrl-Tddnh[address] [place], [place] 6303610-05-2024 14:39-0400Diastolic blood kqrlqazd97 mm[Hg]Anni Gudimella 132-8520Mqlqrg-Rsuso[address] [place], [place] 6303610-05-2024 14:39-0400Heart rate98 /minPreeti Gudimella 766-1501Gcyage-Mtozu[address] [place], [place] 6303610-05-2024 14:39-2136JwK5% (BldA) [Mass fraction]99 %Anni Gudimella 016-1825Huwbhb-Jfgys[address] [place], [place] 6303610-05-2024 14:39-0400Systolic blood wmzdoict685 mm[Hg]Anni Day 028-3504Zprjks-XkxpuMemorial Health System [facility]09-04-2024 13:45-0400Body kmsclo966.7 cmVramos Calix MD Work Phone: [facility]09-04-2024 13:45-0400Body mass index (BMI) [Ratio]36.52 kg/t2PtwkeKristofer Calix MD Work Phone: [facility]09-04-2024 13:45-0400Body temperature 97.11 [degF]Kristofer Calix MD Work Phone: [facility]09-04-2024 13:45-0400Body badolg729.7 kgKristofer Calix MD Work Phone: [facility]09-04-2024 13:45-0400Diastolic blood ehsewxxt48 mm[Hg]Kristofer Calix MD Work Phone: [facility]09-04-2024 13:45-0400Heart rate91 /min Kristofer Calix MD Work Phone: [facility]09-04-2024 13:45-0400Respiratory rate 16 /minKristofer Calix MD Work Phone: [facility]09-04-2024 13:45-0457MlM4% (BldA) [Mass fraction]100 %Kristofer Calix MD Work Phone: [facility]09-04-2024 13:45-0400Systolic blood ahovernq291 mm[Hg]Kristofer Calix MD Work Phone: [facility]08-01-2024 13:40-0400Body temperature 97.7 [degF]Chair Claudio Work Phone: [facility]08-01-2024 13:40-0400Diastolic blood acwmdfrf23 mm[Hg]Chair Claudio Work Phone: [facility]08-01-2024 13:40-0400Heart rate75 /min Chair Stew Work Phone: [facility]08-01-2024 13:40-0400Respiratory rate 16 /minChair Floyd Work Phone: [facility]08-01-2024 13:40-3490WlZ7% (BldA) [Mass fraction]99 %Chair Floyd Work Phone: [facility]08-01-2024 13:40-0400Systolic blood ugisrixg407 mm[Hg]Chair Floyd Work Phone: [facility]07-25-2024 14:00-0400Body temperature 98.2 [degF]Chair Floyd Work Phone: [facility]07-25-2024 14:00-0400Diastolic blood arohfvbx57 mm[Hg]Chair Floyd Work Phone: [facility]07-25-2024 14:00-0400Heart rate79 /min Chair Floyd Work Phone: [facility]07-25-2024 14:00-0400Respiratory rate 16 /minChair Floyd Work Phone: [facility]07-25-2024 14:00-3156KmL0% (BldA) [Mass fraction]99 %Chair Floyd Work Phone: [facility]07-25-2024 14:00-0400Systolic blood ciszwtop706 mm[Hg]Chair Floyd Work Phone: [facility]07-18-2024 14:08-0400Diastolic blood sgreuyvv94 mm[Hg]Chair Floyd Work Phone: [place] [address]-18-2024 14:08-0400Heart rate85 /min Chair Floyd Work Phone: [facility]07-18-2024 14:08-0400Respiratory rate 18 /minChair Floyd Work Phone: [facility]07-18-2024 14:08-6656OgL0% (BldA) [Mass fraction]96 %Chair Stew Work Phone: [facility]07-18-2024 14:08-0400Systolic blood jxqaqrze827 mm[Hg]Chair Stew Work Phone: [facility]07-12-2024 14:44-0400Blood Pressure LocationMonica Saba 896-7514Tflgxs-Chdsl[address] [place], [place] 4430207-12-2024 14:44-0400Body wiosvoeirsn95.34 [degF]Monica Saba 461-4039Vlybzk-Ixcwx[address] [place], [place] 4430207-12-2024 14:44-0400Diastolic blood fzlbcefc76 mm[Hg]Monica Saba 785-0346Fgtqww-Nalsb[address] [place], [place] 4430207-12-2024 14:44-0400Heart rate85 /Jennifer Saba 252-5139Nudhdt-Fcfxs[address] [place], [place] 4430207-12-2024 14:44-0400Respiratory rate16 /Jennifer Saba 025-1575Pawrtl-Zwkxn[address] [place], [place] 4430207-12-2024 14:44-0220UhY7% (BldA) [Mass fraction]99 %Monica Saba 357-6866Oqtapb-Pyqeb[address] [place], [place] 4430207-12-2024 14:44-0400Systolic blood mm[Hg]Monica Saba 700-3989Rbxkpo-Oyjfk[address] [place], [place] 4430206-25-2024 16:48-0400Blood Pressure LocationLourdes Garber 901-3413Nzmxog-Brxqg[address] [place], [place] 4430206-25-2024 16:48-0400Body llescgqtmgd97.52 [degF]Loudres harinder 378-2237Mbhigf-Gwlyt[address] [place], [place] 4430206-25-2024 16:48-0400Diastolic blood emsfqugw63 mm[Hg]Lourdes Garber [address] [place], [place] 9561906-25-2024 16:48-0400Heart rate86 /minJaasia Shirlene [address] [place], [place] 9561906-25-2024 16:48-9139GlQ1% (BldA) [Mass fraction]99 %Lourdes Garber 692-5443Ytcpqi-Bwokt[address] [place], [place] 4430206-25-2024 16:48-0400Systolic blood qrrxaptu730 mm[Hg]Lourdes Garber [address] [place], [place] 9561905-31-2024 21:17-0400Body acwpwjmnybp98.06 [degF]Benny Uribe [address] [place], [place] 3508205-31-2024 21:17-0400 Diastolic blood wdetsmqo24 mm[Hg]Benny Uribe [address]05-31-2024 21:17-0400Heart rate67 /minBenny Uribe [address] [place], [place] 6445805-31-2024 21:17-0400Mean blood dgfafthx13 mm[Hg]Benny Uribe [address] [place], [place] 6445805-31-2024 21:17-9710UfC2% (BldA) [Mass fraction]95 %Benny Uribe [address] [place], [place] 6445805-31-2024 21:17-0400 Systolic blood mm[Hg]Benny Uribe [address] [place], [place] 6445805-31-2024 20:00-0400 Diastolic blood mm[Hg]Benny Uribe [address] [place], [place] 6445805-31-2024 20:00-0400Heart rate78 /Xavier Uribe [address] [place], [place] 6445805-31-2024 20:00-0400Mean blood iwxwwhml58 mm[Hg]Benny Uribe [address]05-31-2024 20:00-0400 Respiratory rate20 /Xavier Uribe [address] [place], [place] 3508205-31-2024 20:00-0400 Systolic blood ulrfbojk513 mm[Hg]Benny Uribe [address] [place], [place] 3508205-31-2024 19:30-0400 Diastolic blood bidoxusg51 mm[Hg]Benny Uribe [address] [place], [place] 3508205-31-2024 19:30-0400Heart rate80 /minBenny Uribe [address] [place], [place] 3508205-31-2024 19:30-0400Mean blood ahqncaya457 mm[Hg]Benny Uribe [address]05-31-2024 19:30-0400 Respiratory rate18 /Xavier Uribe [address] [place], [place] 3508205-31-2024 19:30-8230IdY8% (BldA) [Mass fraction]100 %Benny Uribe [address] [place], [place] 6445805-31-2024 19:30-0400 Systolic blood jophrvyq581 mm[Hg]Benny Uirbe [address] [place], [place] 6445805-31-2024 19:00-0400 Respiratory rate17 /Xavier Uribe [address] [place], [place] 3508205-31-2024 18:32-0400Body pmtvvouebaa61.42 [degF]Benny Uribe [address] [place], [place] 3508205-31-2024 18:32-0400Heart rate69 /Xavier Uribe [facility]05-31-2024 17:46-0400 Diastolic blood tmwjqoif52 mm[Hg]JANET DUNHAM 723-4933Qgytgo-NmaovHolmes County [facility] Thjq50-56-3161 17:46-0400Mean blood daacurwi914 mm[Hg]TIPPECANOE CHARLA 944-3162Wnrzeu-ZefccHolmes [facility] Gtue56-84-9487 17:46-0400Systolic blood yathwjru866 mm[Hg]JANET CHARLA 934-7070Gxigwe-Qmczq[address] [place] [address] Convenient Uxcd99-81-5884 17:40-0400Blood Pressure LocationFRANCJONEL ROBERTSONTIZ 355-3898Zstlnh-ObckzHolmes County [facility] Megd61-75-9310 17:40-0400Body coxckyiotfr13.88 [degF][facility] 923-8669Bgtqms-HsriqHolmes [facility] Aquz86-02-8215 17:40-0400Diastolic blood kygasfcr69 mm[Hg][facility] 037-6452Texkoe-HioocHolmes County [facility] Mhds94-10-9369 17:40-0400Heart rate79 /minFRANCJONEL DUNHAM 284-9851Cmpzdr-GoruvHolmes County [facility] Djip97-67-3013 17:40-3274DoV8% (BldA) [Mass fraction]97 %TIPPECANOE DUNHAM 660-8622Ijsjsr-NrlwqHolmes County [facility] Grbm13-88-1049 17:40-0400Systolic blood lholbflb765 mm[Hg]TIPPECANOE DUNHAM 665-1646Zfvyzd-PgdspHolmes County [facility] Kthi88-68-9191 11:42-0400Blood Pressure LocationScomike CASAS 007-9890Rxkhbp-ChulfHolmes County [facility] Primary Qgjh04-06-3501 11:42-0400Body qoslnftxmnj83.06 [degF]Penelope CASAS 255-7387Zhuqzf-Qssve[address]04-05-2024 11:42-0400Diastolic blood lskwbwtu68 mm[Hg]Penelope CASAS 734-2872Unrnfh-Dvjjq[address] [place], [place] 4430204-05-2024 11:42-0400Heart rate72 /minScott KAPLE 278-8227Czehmz-Kyhqv[address] [place], [place] 4430204-05-2024 11:42-0400Respiratory rate16 /minScott KAPLE 627-8894Hvlfyv-Gayoj[address] [place], [place] 4430204-05-2024 11:42-4769PwS3% (BldA) [Mass fraction]99 %Penelope CASAS 130-0352Cnpqrd-Nzgip[address] [place], [place] 4430204-05-2024 11:42-0400Systolic blood aaxhojye188 mm[Hg]Penelope CASAS 223-6186Dgmnlu-Xfjtp[address] [place], [place] 4430202-16-2024 14:05-0500Body .7 cmVramos Calix MD Work Phone: [facility]02-16-2024 14:05-0500Body temperature 97.39 [degF]Kristofer Calix MD Work Phone: [facility]02-16-2024 14:05-0500Body .1 kgKristofer Calix MD Work Phone: [facility]02-16-2024 14:05-0500Diastolic blood ysghhevt37 mm[Hg]Kristofer Calix MD Work Phone: [place] [address]-16-2024 14:05-0500Heart rate87 /min Kristofer Calix MD Work Phone: [facility]02-16-2024 14:05-0500Respiratory rate 16 /minKristofer Calix MD Work Phone: [facility]02-16-2024 14:05-0662JcI0% (BldA) [Mass fraction]95 %Kristofer Calix MD Work Phone: [facility]02-16-2024 14:05-0500Systolic blood fgfvkzuf588 mm[Hg]Kristofer Calix MD Work Phone: [facility]01-26-2024 11:11-0500Blood Pressure LocationScott KAPLE 512-8297Vgxnez-Zcktr[address] [place], [place] 4430201-26-2024 11:11-0500Body vjzjlybddxw42.7 [degF]Penelope KAPLE [address] [place], [place] 9561901-26-2024 11:11-0500Diastolic blood yhkojcjn08 mm[Hg]Penelope KAPLE [address] [place], [place] 9561901-26-2024 11:11-0500Heart rate76 /minScott KAPLE 461-2086Wprpuq-Hlvjr[address] [place], [place] 4430201-26-2024 11:11-0500Respiratory rate18 /minScott KAPLE [address] [place], [place] 9561901-26-2024 11:11-5129AyS2% (BldA) [Mass fraction]98 %Penelope KAPLE [address] [place], [place] 9561901-26-2024 11:11-0500Systolic blood sesyjkms996 mm[Hg]Penelope KAPLE 295-0213Cizhuk-Hbwmr[address] [place], [place] 4430210-19-2023 09:41-0400Blood Pressure LocationScott KAPLE 731-0735Ozpfkf-Tvpwy[address] [place], [place] 4430210-19-2023 09:41-0400Body eqrayblglss62.42 [degF]Penelope KAPLE 728-9283Mekycn-Wvfje[address] [place], [place] 4430210-19-2023 09:41-0400Diastolic blood xokrpraz05 mm[Hg]Penelope KAPLE 449-2829Urvgsz-Gqsow[address] [place], [place] 4430210-19-2023 09:41-0400Heart rate80 /minScott KAPLE 905-9190Vonfms-Rkjcv[address] [place], [place] 4430210-19-2023 09:41-0400Respiratory rate18 /minScott KAPLE 763-0055Beliiq-Ooklz[address] [place], [place] 4430210-19-2023 09:41-8450NbL2% (BldA) [Mass fraction]98 %Penelope STYLESLE 703-3143Lbbpcr-Stlop[address]10-19-2023 09:41-0400Systolic blood ovwyojqb246 mm[Hg]Penelope STYLESLE [address] [place], [place] 9561906-23-2023 09:44-0400Blood Pressure LocationScott KAPLE [address] [place], [place] 9561906-23-2023 09:44-0400Body imcjatepwfa31.24 [degF]Penelope STYLESLE [address] [place], [place] 9561906-23-2023 09:44-0400Diastolic blood gpmrjkaq91 mm[Hg]Penelope STYLESLE [address] [place], [place] 9561906-23-2023 09:44-0400Heart rate88 /minScott KAPLE 587-2468Zxrmoz-Wxapz[address] [place], [place] 4430206-23-2023 09:44-0400Respiratory rate18 /minScott KAPLE 569-6470Wirtmh-Cvqiw[address] [place], [place] 4430206-23-2023 09:44-0473MzA1% (BldA) [Mass fraction]98 %Penelope STYLESLE 513-1504Ttesrr-Efrib[address]06-23-2023 09:44-0400Systolic blood iratjfjt619 mm[Hg]Penelope STYLESLE 764-6283Slngfa-Mejjt[address] [place], [place] 4430203-30-2023 13:18-0400Body llansq738.7 cmVivek Abhyankar MD Work Phone: [facility]03-30-2023 13:18-0400Body temperature 97.5 [degF]Kristofer Calix MD Work Phone: [facility]03-30-2023 13:18-0400Body ayvyir472.78 kgKristofer Calix MD Work Phone: [facility]03-30-2023 13:18-0400Diastolic blood syljvyil40 mm[Hg]Kristofer Calix MD Work Phone: [place] [address]-30-2023 13:18-0400Heart rate76 /min Kristofer Calix MD Work Phone: [place] [address]-30-2023 13:18-0400Respiratory rate 16 /minKristofer Calix MD Work Phone: [facility]03-30-2023 13:18-3290GgM1% (BldA) [Mass fraction]97 %Kristofer Calix MD Work Phone: [facility]03-30-2023 13:18-0400Systolic blood ayfelksl667 mm[Hg]Kristofer Calix MD Work Phone: [facility]12-22-2022 13:45-0500Body temperature 98.71 [degF]Chair Floyd Work Phone: [facility]12-22-2022 13:45-0500Diastolic blood tvcayhzc67 mm[Hg]Chair Stew Work Phone: [facility]12-22-2022 13:45-0500Heart rate85 /min Chair Floyd Work Phone: [facility]12-22-2022 13:45-0327CyT3% (BldA) [Mass fraction]97 %Chair Floyd Work Phone: [facility]12-22-2022 13:45-0500Systolic blood greszzec710 mm[Hg]Chair Stew Work Phone: [facility]12-07-2022 16:27-0500Diastolic blood jkefiqad37 mm[Hg]Chair Stew Work Phone: [facility]12-07-2022 16:27-0500Heart rate84 /min Chair Stew Work Phone: [facility]12-07-2022 16:27-0500Respiratory rate 18 /minChair Stew Work Phone: [place] [address]-07-2022 16:27-5235XmC0% (BldA) [Mass fraction]96 %Chair Stew Work Phone: [facility]12-07-2022 16:27-0500Systolic blood upfjfnff867 mm[Hg]Chair Stew Work Phone: [facility]11-28-2022 14:20-0500Body zumcma351.7 cmVramos Calix MD Work Phone: [facility]11-28-2022 14:20-0500Body temperature 97.39 [degF]Kristofer Calix MD Work Phone: [facility]11-28-2022 14:20-0500Body rybsby472.23 kgKristofer Calix MD Work Phone: [place] [address]-28-2022 14:20-0500Diastolic blood szlnutwq46 mm[Hg]Kristofer Calix MD Work Phone: [place] [address]-28-2022 14:20-0500Heart cdqa725 /minKristofer Calix MD Work Phone: [place] [address]-28-2022 14:20-0500Respiratory rate 16 /minKristofer Calix MD Work Phone: [place] [address]-28-2022 14:20-7312SxS9% (BldA) [Mass fraction]97 %Kristofer Calix MD Work Phone: [facility]11-28-2022 14:20-0500Systolic blood keczoujx499 mm[Hg]Kristofer Calix MD Work Phone: [facility]10-03-2022 11:46-0400Body ayuzox946.7 cmVramos Calix MD Work Phone: [facility]10-03-2022 11:46-0400Body temperature 97.2 [degF]Kristofer Calix MD Work Phone: [facility]10-03-2022 11:46-0400Body qhiubz085.42 kgKristofer Calix MD Work Phone: [facility]10-03-2022 11:46-0400Diastolic blood rthbkalg43 mm[Hg]Kristofer Calix MD Work Phone: [facility]10-03-2022 11:46-0400Heart rate88 /min Kristofer Calix MD Work Phone: [facility]10-03-2022 11:46-0400Respiratory rate 16 /minKristofer Calix MD Work Phone: [facility]10-03-2022 11:46-5660BqL1% (BldA) [Mass fraction]99 %Kristofer Calix MD Work Phone: [facility]10-03-2022 11:46-0400Systolic blood xupylxof171 mm[Hg]Kristofer Calix MD Work Phone: [facility]04-22-2022 10:46-0400Blood Pressure LocationPERNELL LONGORIA 082-2721Odanfr-XndfvCincinnati [facility] 04-22-2022 10:46-0400Diastolic blood phyhojav53 mm[Hg] PERNELL LONGORIA 788-9154Oxphdq-DivcjCincinnati [facility] 04-22-2022 10:46-0400Heart rate96 /minDERIK SIDEMICHELLE 014-2609Wdjtlg-VsmmaCincinnati Children'S Hospital Medical Center 04-22-2022 10:46-5586IiY4% (BldA) [Mass fraction]99 % PERNELL SIDEMICHELLE 012-6630Tkpazn-GibvdCincinnati Children'S Hospital [facility] 04-22-2022 10:46-0400Systolic blood qvivdnix048 mm[Hg] PERNELL LONGORIA 456-7047Xgrzsk-VeegxCincinnati Children'S Hospital [facility] Encounters Encounter DateEncounter TypeCare ProviderFacilityStart: 03-10-2025 End: 08-90-8513Ofkede flowsheetCorey Montez DO Work Phone: [facility]BGYNStart: 03-10-2025 End: 24-95-0325Gkwdpv flowsheetCorey Montez DO Work Phone: [facility]BGYNStart: 03-10-2025 End: 59-40-2681chyfuwknmkWYRTS FAZIONot AvailableStart: 03-06-2025 End: 86-96-4818Fhzaimjpn Result EncounterCorey Montez DO Work Phone: [facility] External Department UnsolicitedStart: 03-06-2025 End: 17-81-0715Fodobjojj Result EncounterCorey Montez DO Work Phone: [facility] External Department UnsolicitedStart: 03-02-2025 End: 89-43-6940wugxtymwznCOUVD MARTINEZFacility:[facility] Hospitaltart: 02-27-2025 End: 76-94-0628Ahukexmoy Result EncounterCorey Montez DO Work Phone: [facility] External Department UnsolicitedStart: 02-27-2025 End: 76-37-5400Etnaslday Result EncounterCorey Montez DO Work Phone: [facility] External Department UnsolicitedStart: 02-23-2025 End: 55-41-2492Zwvbpa flowsheetCorey Montez DO Work Phone: [facility]BGYNStart: 02-23-2025 End: 85-90-1133Oonacq flowsheetCorey Montez DO Work Phone: [facility]BGYNStart: 02-23-2025 End: 09-39-3507dgukkcyxjqSHOYR FAZIONot AvailableStart: 02-23-2025 End: 91-92-9664Lhgnud outpatient visit 15 minutesCorey Montez DO Work Phone: [facility] OBGYNComment on above:Third trimester ([facility]); 30 weeks gestation of ([facility])Start: 02-20-2025 End: 16-26-7933Xzbxhgyii Result EncounterCorey Montez DO Work Phone: [facility] External Department UnsolicitedStart: 02-20-2025 End: 19-37-5245Llnjqenhs Result EncounterCorey Montez DO Work Phone: [facility] External Department UnsolicitedStart: 02-17-2025 End: 46-60-5648Ltciwaaay Result EncounterCorey Montez DO Work Phone: [facility] External Department UnsolicitedStart: 02-17-2025 End: 01-23-6836Ibubkiijs Result EncounterCorey Montez DO Work Phone: [facility] External Department UnsolicitedStart: 02-16-2025 End: 04-70-5289Boxpav consultation new/estab patient 80 Héctor Callahan MD MPH Work Phone: [facility] on above:Antiphospholipid syndrome (Primary Dx); Antiphospholipid syndrome complicating , antepartum; History of CVA (cerebrovascular accident); Coordination of complex care; 29 weeks gestation of pregnancyStart: 02-16-2025 End: 11-09-4527rugbtklqlyDPHHZ GARCIA AMBATIMer[facility] HospitalStart: 02-10-2025 End: 25-93-6031Ybqyhwjwz encounterCathyjacinta Dominguezavery WELLS Work Phone: [phone]-[facility] Start: 02-09-2025 End: 98-91-7382rrszesnkvdVDUQU FAZIONot AvailableStart: 02-09-2025 End: 92-27-2691Wyidpi outpatient visit 15 minutesCorey Montez DO Work Phone: [facility] [place] [facility]YNComment on above:Third trimester ([facility]); 28 weeks gestation of ([facility]); Anemia complicating childbirth ([facility]); Anticoagulant long-term use; Antiphospholipid antibody positive; Blood pressure elevated without history of HTN; Coagulation defect, unspecified ([facility])Start: 02-06-2025 End: 76-28-3413dktpcbuabnVJVPUWIS P DOCHEVAProMarion Hospitaltart: 02-06-2025 End: 17-24-4202Mkkejo outpatient visit 25 minutesMukul Noyola MD Work Phone: [phone]-Wvlsw [facility] Comment on above:27 weeks gestation of (Primary Dx); Multigravida of advanced maternal age in third trimester; Gestational diabetes mellitus (GDM) in second trimester controlled on oral hypoglycemic drug; Antiphospholipid syndrome complicating , antepartum; Antiphospholipid syndromeStart: 02-05-2025 End: 12-22-1070jlakrlwcpwTMIFQ R [facility] Ambulatory PPGStart: 02-03-2025 End: 51-73-9554adpydqdrhwLdhvl R FAZIOFacility:FTMCStart: 01-19-2025 End: 86-65-6859sjtwgxgcerVAUXL FAZIONot AvailableStart: 01-19-2025 End: 97-67-2381Fqfask outpatient visit 15 minutesCorey Montez DO Work Phone: [facility] OBGYNComment on above:Second trimester ([facility] 25 weeks gestation of ([facility]); Gestational diabetes mellitus (GDM), antepartum, gestational diabetes method of control unspecified([facility]); Anticoagulant long-term use; Antiphospholipid antibody positive; Antiphospholipid antibody syndrome ([facility])Start: 06-25-0585nyurconanlCyojd R FAZIOFacility:FTMCStart: 01-13-2025 End: 30-87-3741Lvtyzg outpatient visit 25 minutesRoxana Mays PA-C Work Phone: [phone]-Ejqiy [facility] at [facility] Comment on above:Gestational diabetes mellitus (GDM) in second trimester controlled on oral hypoglycemic drug (Primary Dx); Antiphospholipid syndrome; Other specified hypothyroidism; Antiphospholipid syndrome complicating , antepartumStart: 01-13-2025 End: 20-82-7064jwertxstvsTNLAPRW E LAVOYMercy Health West Hospital HospitalStart: 01-09-2025 End: 23-81-4040Bzsmdfcuq encounterMukul Noyola MD Work Phone: [phone]-Psjab Medicine at [facility] Comment on above:Antiphospholipid syndrome (Primary Dx)Start: 01-07-2025 End: 98-69-2954Gvgvouauf encounterJacque Pat RNMaternal- Medicine at [facility] HospitalStart: 01-05-2025 End: 51-21-6797ggjapblotiAQJUL FAZIONot AvailableStart: 01-05-2025 End: 00-45-2736Zrqbgl outpatient visit 15 minutesCorey Montez DO Work Phone: NOMS Piyush OBGYNComment on above:Second trimester ([facility] 23 weeks gestation of ([facility]); Thyroid disease ; Gestational diabetes mellitus (GDM), antepartum, gestational diabetes method of control unspecified([facility]); Multigravida of advanced maternal age in second trimester ([facility]); H/O loss; Lightheaded; DizzinessStart: 01-05-2025 End: 92-80-0974Lrlivx flowsheetRHLvision Technologiesy Montez DO Work Phone: noms Piyush OBGYNStart: 01-05-2025 End: 09-87-2669Jpqqtq flowsheetPaymate Montez DO Work Phone: noms Piyush OBGYNStart: 01-05-2025 End: 11-84-6067Glvojqftbxnki procedureChoate Memorial Hospital RNMaternal- Medicine at [facility] HealthComment on above:Multigravida of advanced maternal age in [...] Family history of autism; HyponatremiaStart: 01-01-2025 End: 77-81-9415Vvkxry consultation new/estab patient 80 Margaux Noyola MD Work Phone: [facility] Medicine [place] StoddardComment on above: 22 weeks gestation of (Primary Dx); Antiphospholipid syndrome complicating , antepartum; History of stroke; History of loss in prior , currently in second trimester; Gestational diabetes mellitus (GDM) in second trimester controlled on oral hypoglycemic drug; Multigravida of advanced maternal age in second trimester; Hypothyroidism affecting in second trimester; Family history of autism; HyponatremiaStart: 01-01-2025 End: 61-27-1064Sofxth Simon Warren RNMaterna Medicine [place] Comment on above:Multigravida of advanced maternal age in second trimester (Primary Dx); Antiphospholipid syndrome complicating , antepartum; Gestational diabetes mellitus (GDM) in second trimester controlled on oral hypoglycemic drug; Insulin controlled gestational diabetes mellitus (GDM) in second trimester; AMA (advanced maternal age) multigravida 35+, second trimester; Hypothyroidism, unspecified typeStart: 12-26-2024 End: 76-26-3450Dfljmf Ty Noyola MD Work Phone: [facility] - LaborComment on above: Gestational diabetes mellitus (GDM) in second trimester controlled on oral hypoglycemic drug (Primary Dx)Start: 12-23-2024 End: 43-08-5872Fyouuvf encounter Valentine Negrete APRN.CNP Work Phone: Hematology/OncologyStart: 12-23-2024 End: 64-63-6567icdeojuhypMuyibJuju Negrete APRN.CNP Work Phone: Hematology/OncologyComment on above:Antiphospholipid antibody positive (Primary Dx); Iron deficiency anemia secondary to blood loss (chronic); Vitamin D deficiency; Primary hypercoagulable state (HCC)Start: 12-17-2024 End: 93-42-5530yfsdxwzgwfKBDZZMKJGerman Hospitaltart: 12-17-2024 End: 09-92-9384Tdbldc outpatient visit 25 minutesAlisa HUTTON Work Phone: [phone]-Wvtow Medicine at [facility] Comment on above:Gestational diabetes mellitus (GDM) in second trimester controlled on oral hypoglycemic drug (Primary Dx)Start: 12-17-2024 End: 02-14-3382izdqgwnehvBALYHUSNGerman Hospitaltart: 12-16-2024 End: 27-96-8108Gtmyazdoh Result EncounterCorey Montez DO Work Phone: noms External Department UnsolicitedStart: 12-16-2024 End: 68-41-1592Ujffjgcfc Result EncounterCorey Montez DO Work Phone: noms External Department UnsolicitedStart: 12-12-2024 End: 28-39-5452Kmdzqoejv encounterAnnita WELLS Work Phone: [phone]-Eekvg Medicine at [facility] Start: 12-11-2024 End: 53-70-4228Hfpqwm flowsheetCorey Montez DO Work Phone: noms Piyush OBGYNStart: 12-11-2024 End: 65-90-8593Qcjjrq flowsheetCorey Montez DO Work Phone: NODN Piyush OBGYNStart: 12-11-2024 End: 06-38-3284Yvsadsdde Result EncounterCorey Montez DO Work Phone: NOMS External Department UnsolicitedStart: 12-11-2024 End: 79-71-1462egagegeajvOJJSH FAZIONot AvailableStart: 12-11-2024 End: 52-38-9369Qczzcd outpatient visit 15 minutesCorey Montez DO Work Phone: noMS [place] OBGYNComment on above:19 weeks gestation of ([facility]); Second trimester ([facility]); Thyroid disease ; Multigravida of advanced maternal age in second trimester ([facility]); Gestational diabetes mellitus (GDM), antepartum, gestational diabetes method of control unspecified([facility])Start: 12-03-2024 End: 50-69-8903jjqsgxgtxnXMPLASRX BROGANProMediLakeHealth Beachwood Medical Centertart: 12-03-2024 End: 09-55-2385Mddedp outpatient visit 25 minutesAlisa Saba LAB INTERN-[employer] Work Phone: [phone]-Xucri Medicine at [facility] Comment on above:Insulin controlled gestational diabetes mellitus (GDM) in second trimester (Primary Dx)Start: 12-03-2024 End: 38-93-5051Yvuodghet encounterAnni Abreu CMAMaternal- Medicine at [facility] Centertart: 11-20-2024 End: 91-88-8596Lywqus flowsheetCorey Montez DO Work Phone: noms BCP OBStart: 11-20-2024 End: 60-15-6570Ykjxop flowsheetCorey Montez DO Work Phone: NOMS BCP OBStart: 11-20-2024 End: 95-03-8301ynbxdryzcuCOZOO FAZIONot AvailableStart: 11-20-2024 End: 81-37-4145Outrlb outpatient visit 15 minutesCorey Montez DO Work Phone: noms [place] OBGYNComment on above:Second trimester ([facility]); 16 weeks gestation of ([facility]); Screening, , for anatomic survey ([facility]); Vaginal discharge; Sinus headacheStart: 11-19-2024 End: 21-84-5995tdkzjzdabdUobivd M Frey RN Work Phone: [phone]-Mzhwq Medicine at [facility] Comment on above:Gestational diabetes mellitus (GDM), antepartum, gestational diabetes method of control unspecified(Primary Dx)Start: 11-04-2024 End: 33-69-8902Vhkng Syd Noyola MD Work Phone: [phone]-Fycvr Medicine [facility] Start: 10-30-2024 End: 28-50-0367Blvkxq flowsheetRHLvision Technologiesy Montez DO Work Phone: noms BCP OBStart: 10-30-2024 End: 44-66-7101Amsuoe flowsheetRHLvision Technologiesy Montez DO Work Phone: noms BCP OBStart: 10-30-2024 End: 44-66-8685Yoleea outpatient visit 15 minutesCorey RateItAll Work Phone: noms BCP OBComment on above:Second trimester ([facility]); 13 weeks gestation of ([facility]); Thyroid disease ; Multigravida of advanced maternal age in second trimester ([facility]); Gestational diabetes mellitus (GDM), antepartum, gestational diabetes method of control unspecified([facility]); Elevated glucose tolerance testStart: 10-30-2024 End: 51-46-7932bmqjdovwhrGDFQZ FAZIONot AvailableStart: 10-29-2024 End: 53-18-3287LzbikvFhsgokStephany Paz APRN.CNP Work Phone: Hematology/OncologyComment on above:Refill Request Start: 10-28-2024 End: 94-14-6741Znghpcd encounter procedureKatherine Negrete APRN.CNP Work Phone: Hematology/OncologyStart: 10-28-2024 End: 87-50-9850cbzucwydfyGepss Martinez APRN.CNP Work Phone: Hematology/OncologyComment on above:Primary hypercoagulable state (HCC) (Primary Dx); CVA, old, speech/language deficit; Cerebral hyponatremia; Personal history of TIA (transient ischemic attack)Start: 10-28-2024 End: 80-89-2610Qlnsihjbz Gregoria Negrete APRN.[employer] Work Phone: Cancer Appts MCComment on above:ResultsStart: 10-24-2024 End: 87-05-1220Inqiviqos Gregoria Negrete APRN.[employer] Work Phone: Hematology/OncologyComment on above:Lab OrdersStart: 10-20-2024 End: 62-48-6295PurwzrIrdps Abhyankar MD Work Phone: Hematology/OncologyComment on above:Refill Request Start: 10-13-2024 End: 41-41-0268Lbziku Monroe Khan RNMaternal- Medicine at [facility] HealthComment on above:Gestational diabetes mellitus (GDM), antepartum, gestational diabetes method of control unspecified(Primary Dx)Start: 10-06-2024 End: 58-81-4218Akwecmnen Result EncounterCorey Montez DO Work Phone: noms External Department UnsolicitedStart: 10-06-2024 End: 61-35-4046Vyzlncfqv Result EncounterCorey Montez DO Work Phone: noms External Department UnsolicitedStart: 10-02-2024 End: 98-45-5027wbuaxzuvsrGBXNS FAZIONot AvailableStart: 10-02-2024 End: 29-13-7463Jldvwv outpatient visit 5 minutesNoms Bcp Ob Montez NurseNOMS BCP OBComment on above:GA: 2a6fVmqwx: 09-11-2024 End: 55-82-3199Mpxxxckdj Result EncounterCorey Montez DO Work Phone: noms External Department UnsolicitedStart: 09-11-2024 End: 09-91-6787Hwqsqrhsx Result EncounterCorey Montez DO Work Phone: noms External Department UnsolicitedStart: 09-09-2024 End: 47-91-1658hxcqdgjuytFbkvw Cecily KAPLEFacility:Val PCStart: 09-09-2024 End: 54-33-3855Amibebb encounter procedureScott A PRAVEEN [phone]-GauvzHolmes County [facility] Start: 09-07-2024 End: 88-64-0958nplfokwegbSpxhz M. DempseyFacility:GIL NorwalkStart: 09-02-2024 End: 26-85-3594Yctziwakz encounterNatmurphy Johnson RNHematology/OncologyComment on above:Patient UpdateStart: 08-26-2024 End: 86-51-4902Xttpeanev encounterKristofer Calix MD Work Phone: Hematology/OncologyComment on above:Lab OrdersStart: 08-23-2024 End: 32-81-0543uzjrefrakhEitqj R FAZIOFacility:FTMCStart: 08-23-2024 End: 36-55-8527Gpezkna encounter procedureCorey R MONTEZ [facility] Start: 07-25-2024 End: 71-97-1304JdjhgyTdrhh Abhyankar MD Work Phone: Hematology/OncologyComment on above:Refill Request Start: 07-24-2024 End: 02-97-7537Ontynp flowsheetCorey Montez DO Work Phone: noms BCP OBStart: 07-24-2024 End: 62-30-0630Jqkjzp flowsheetCorey Montez DO Work Phone: noms BCP OBStart: 07-24-2024 End: 92-92-6573ubeyvhshjkUWXYZ FAZIONot AvailableStart: 07-24-2024 End: 97-28-9058Avzrxi outpatient visit 15 minutesCorey Montez DO Work Phone: noms BCP OBComment on above:Irregular menstrual cycle Start: 07-09-2024 End: 15-20-3786ohfsqfowveXjokqig A VisciFacility:FTMCStart: 07-09-2024 End: 15-58-7853Zcjbius encounter procedureInez Wakefield [facility] Start: 07-08-2024 End: 26-76-2473Tdg-admission assessmentInez [facility]field [facility] Start: 07-07-2024 End: 27-69-4487hsrcfcovnsLgvch A KAPLEFacility:Val PCStart: 06-30-2024 End: 61-37-8645hqhmizhwppEohbz A KAPLEFacility:Val PCStart: 06-30-2024 End: 95-05-8327Vumhsyj encounter procedureScott Cecily CASAS [phone]-YzawlHolmes County [facility] Start: 06-23-2024 End: 41-65-6891Ecewvc outpatient visit 15 minutesCorey Montez DO Work Phone: noms BCP OBComment on above:Vaginal bleeding; Dizziness; Abnormal TSH; Vaginal discharge; Pelvic pain in femaleStart: 06-23-2024 End: 93-99-2361utyqgvbiibNKYWG FAZIONot AvailableStart: 06-23-2024 End: 41-93-1838Pcpcisvv Result EncounterCorey Montez DO Work Phone: noms External Department UnsolicitedStart: 06-23-2024 End: 78-53-8030Mvwgnjcq Result EncounterCorey Montez DO Work Phone: noms External Department UnsolicitedStart: 06-19-2024 End: 08-43-4172ndtinxvwveGNNSAH R CIERSEZWSKIFacility:FM MilanStart: 06-19-2024 End: 07-84-1120Ovlzsuk encounter procedureJACLYN Spencer BACA [phone]-DuczpHolmes County [facility] [place] Start: 06-12-2024 End: 09-33-0227hjpwfdlppxBnxbg R FAZIOFacility:FTMCStart: 06-12-2024 End: 09-99-6274Egdrgel encounter procedureCorey R MONTEZ [facility] Start: 06-09-2024 End: 05-67-0559zzetgmzvumBoyrl A STEPHANILEFacility:Val PCStart: 06-09-2024 End: 21-39-8345Gyympur encounter procedureCorey R MONTEZ [facility] Start: 06-06-2024 End: 41-91-3484jdvvuhozpdANHKEH A LEHMANNFacility:FT BellevueStart: 06-02-2024 End: 80-39-1111jaluuysgsxIMWWR FAZIONot AvailableStart: 06-02-2024 End: 82-13-3735Yucppz outpatient visit 15 minutesCorey Montez DO Work Phone: noms BCP OBComment on above:Follow-up visit after miscarriage; Abnormal TSH; History of thyroid diseaseStart: 05-28-2024 End: 42-31-4420Hbxlqyrgz encounterKristofer Calix MD Work Phone: Cancer Appts MCStart: 05-28-2024 End: 17-84-6372Dhzpro outpatient visit 25 minutesKristofer Calix MD Work Phone: Hematology/OncologyComment on above:Primary hypercoagulable state (HCC) (Primary Dx); CVA, old, speech/language deficit; Iron deficiency anemia secondary to blood loss (chronic); Vitamin D deficiency; Antiphospholipid antibody syndrome (HCC)Start: 05-28-2024 End: 07-65-1536qezejdqqzyHQQNS ABHYANKARFacility:[facility] Hospitaltart: 91-39-3222wpdyovxfmiDpatm A KAPLEFacility:[place] PCStart: 05-14-2024 End: 52-95-8606Kzapbyhfz encounterNatalimaxim Johnson RNHematology/OncologyComment on above:Patient UpdateStart: 05-10-2024 End: 30-27-1098Nugdyaluz Result EncounterCorey Montez DO Work Phone: noms External Department UnsolicitedStart: 05-10-2024 End: 62-26-5286Lmebjnnaq Result EncounterCorey Montez DO Work Phone: noms External Department UnsolicitedStart: 05-10-2024 End: 07-41-0607qxwbsjxbnwEecyy FazioFiClinton [facility] Work Phone: Start: 05-10-2024 End: 61-33-2066Kjpnvycr ReferredCorey Montez DO Work Phone: [facility] Path Spec [place] HospStart: 05-06-2024 End: 13-05-2813jlnvnbzaagOPWXV FAZIONot AvailableStart: 05-06-2024 End: 65-91-4153Gwgnns flowsheetCorey Montez DO Work Phone: noms BCP OBStart: 05-06-2024 End: 85-04-3385Cebjkl flowsheetCorey Montez DO Work Phone: noms BCP OBStart: 05-06-2024 End: 47-74-8529dcvigyabdwDKFWP FAZIONot AvailableStart: 05-06-2024 End: 91-20-2623Kvpygc outpatient visit 15 minutesCorey Montez DO Work Phone: noms BCP OBComment on above:14 weeks gestation of ; Second trimester ; Confirm viability with history of miscarriage, ultrasoundStart: 04-28-2024 End: 67-10-4275GemzmfIncaqSalvador Calix MD Work Phone: Hematology/OncologyComment on above:Refill Request Start: 04-12-2024 End: 81-82-1134Loehnobav Result EncounterCorey Montez DO Work Phone: noms External Department UnsolicitedStart: 04-12-2024 End: 24-10-3073Kskpszrfb Result EncounterCorey Montez DO Work Phone: noms External Department UnsolicitedStart: 04-05-2024 End: 59-91-4010Sxfqytsjs Result EncounterCorey Montez DO Work Phone: noms External Department UnsolicitedStart: 04-05-2024 End: 28-93-5441Iticifzxy Result EncounterCorey Montez DO Work Phone: noms External Department UnsolicitedStart: 04-04-2024 End: 43-48-1691izokosoxuuJVMYT FAZIONot AvailableStart: 04-04-2024 End: 04-58-5561Pfepyx outpatient visit 5 minutesNoms Bcp Ob Montez NurseNOMS BCP OBComment on above:GA: 3u9lPigii: 03-01-2024 End: 39-47-8109wmvizkhhrqOqjja R FAZIOFacility:FTMCStart: 03-01-2024 End: 76-55-6384Fnozwhp encounter procedureCorey R MONTEZ [facility] Start: 02-27-2024 End: 13-19-0885fxnrwetzxtSuach R FAZIOFacility:FTMCStart: 02-27-2024 End: 42-70-5731Pussebtit encounterNatalimaxim Johnson RNHematology/OncologyComment on above:Patient QuestionStart: 02-25-2024 End: 67-98-6636vzyszbfczjGiufx R FAZIOFacility:FTMCStart: 02-25-2024 End: 52-05-0303Kfyzoeo encounter procedureCorey R MONTEZ [facility] Start: 02-23-2024 End: 00-31-7846snwlkjfkcsWjtok A KAPLEFacility:FTMCStart: 02-23-2024 End: 97-06-6241Ozsrinw encounter procedureCorey R MONTEZ [facility] Start: 02-05-2024 End: 67-44-9875trhsnboewtYyner A KAPLEFacility:Val PCStart: 02-05-2024 End: 95-24-0575Wusvqdh encounter procedureScott A KAPLE [phone]-XznkiHolmes County [facility] Start: 02-05-2024 End: 57-12-6910Szik adult monitoring check doneScott A STEPHANILE [phone]-ZlmvwHolmes County [facility] Start: 02-02-2024 End: 77-91-7890qycibwlmlaKbulih GudimellaFacility:CC AvivawalkStart: 02-02-2024 End: 24-69-7467Zjhuxvj encounter procedurePreeti Gudimella [phone]-PiavsHolmes County [facility] Start: 78-30-8085qdivbdfhnqIvldt A KAPLE Facility:Val PCStart: 01-24-2024 End: 92-04-1674MjbzmfFaasd Abhyankar MD Work Phone: Hematology/OncologyComment on above:Refill Request Start: 01-02-2024 End: 51-90-6295Wpgkhamli Nesha Calix MD Work Phone: Cancer Appts MCComment on above:ResultsStart: 01-02-2024 End: 57-46-0815Iaupfw outpatient visit 15 minutesKristofer Calix MD Work Phone: Hematology/OncologyComment on above:Iron deficiency anemia secondary to blood loss (chronic) (Primary Dx); Vitamin D deficiency; Malaise and fatigueStart: 12-17-2023 End: 90-95-4280Gvtoxercn encounterNatalimaxim Johnson RNHematology/OncologyStart: 12-06-2023 End: 83-35-8532ijgjwfbcxnGicxpqywq L ClarkFacility:FTMCStart: 12-06-2023 End: 57-41-1742Obzcrbl encounter procedureMonica Saba [facility] Start: 04-76-1119gosskiiyneFtqcy A KAPLE Facility:Val PCStart: 11-29-2023 End: 41-59-8634taqbeekseiDodaf Abhyankar MD Work Phone: Hematology/OncologyComment on above:Iron infusion side effects?Refill RequestIron deficiency anemia of (Primary Dx); Iron deficiency anemia secondary to blood loss (chronic)Start: 11-22-2023 End: 12-79-5584lcxssdayjyWzgzr 12 [employer] Work Phone: Hematology/OncologyComment on above:Iron deficiency anemia of (Primary Dx); Iron deficiency anemia secondary to blood loss (chronic)Start: 11-15-2023 Telephone encounterFinancial Navigator Delgado Work Phone: Hematology/OncologyStart: 11-15-2023 End: 08-21-8109joskzlgoqlGtpka 12 [employer] Work Phone: Hematology/OncologyComment on above:Iron deficiency anemia of (Primary Dx); Iron deficiency anemia secondary to blood loss (chronic)Start: 11-09-2023 End: 30-89-3049Qqzyhhg encounter procedureMonica Saba [phone]-BihlcHolmes County [facility] Start: 11-09-2023 End: 03-77-1004Lcbriy WorkLormoe Krueger LSWHematology/OncologyStart: 11-05-2023 Telephone encounterKristofer Calix MD Work Phone: Cancer Appts MCComment on above:AppointmentStart: 10-23-2023 End: 47-03-7315ijdhkvkhsjMsbkdyc Delaneyaddie GarberFacility:Val PCStart: 10-23-2023 End: 87-61-7356Xduxmft encounter procedureLourdes Baltazar Shirlene [phone]-PmpcpHolmes County [facility] Start: 09-28-2023 End: 93-63-0056Pzzzcknxu department patient Marta Uribe [facility] Start: 09-28-2023 End: 43-01-5516pujeyjsyrbDG-C FRANCISCO ORTIZFacility:CC NorwalkStart: 09-28-2023 End: 69-62-7174Whmeoaq encounter procedureJANET DUNHAM [phone]-EnonxHolmes County [facility] Start: 33-59-2935Ldnmgztqv encounterKristofer Calix MD Work Phone: Cancer Appts MCComment on above:Appointment RescheduledStart: 09-21-2023 End: 08-39-1058uhowaftyybJetii Abhyankar MD Work Phone: Hematology/OncologyComment on above:Iron deficiency anemia secondary to blood loss (chronic) (Primary Dx)Start: 09-21-2023 End: 62-66-2590Hyupqvfhhzjv consultation with Song Calix MD Work Phone: Hematology/OncologyStart: 08-03-2023 End: 77-12-4652jqnfvzuhumUtslq A KAPLEFacility:[place] PCStart: 08-03-2023 End: 47-53-8545Ysuwznf encounter procedureScomike A KAPLE [phone]-TzvypHolmes County [facility] Start: 06-29-2023 End: 57-04-2207zfffrwfhnqExfxy A KAPLEFacility:[place] PCStart: 06-29-2023 End: 75-03-2119Vxptapw encounter procedureScott A KAPLE [phone]-PoijlHolmes County [facility] Start: 78-13-2069nzspvupzthJzpbefv Powell cna ltc/OncologyComment on above:Lab results/recommendationsStart: 06-19-2023 E-mail encounter from Jose Carlos Johnson RNSANDUSKYStart: 06-15-2023 End: 95-86-2799Czkfow outpatient visit 25 minutesKristofer Calix MD Work Phone: Hematology/OncologyComment on above:Vitamin D deficiency (Primary Dx); Hypercalcemia; Iron deficiency anemia secondary to blood loss (chronic)Start: 06-15-2023 Telephone encounterKristofer Calix MD Work Phone: Cancer Appts MCComment on above:ResultsStart: 73-32-5149Skcaiortn encounterKristofer Calix MD Work Phone: Hematology/OncologyComment on above:Lab OrdersStart: 95-48-8267Eonbjokgl encounterKristofer Calix MD Work Phone: Cancer Appts MCComment on above:Future Appointment Start: 05-31-2023 End: 93-52-6808hoxqsoukhgKkpypVernell Calix MD Work Phone: Hematology/OncologyComment on above:Primary hypercoagulable state (HCC) (Primary Dx); CVA, old, speech/language deficit; Hypercalcemia; Vitamin D deficiency; Iron deficiency anemia secondary to blood loss (chronic); Malaise and fatigueStart: 05-31-2023 End: 09-23-6298Wffqqijlgbqf consultation with Song Calix MD Work Phone: SANDUSKYStart: 05-25-2023 End: 38-88-7700hqxziwyoavAqmwy A KAPLEFacility:Val PCStart: 05-25-2023 End: 62-41-8531Damualo encounter procedureScott A KAPLE [phone]-MebdpHolmes County [facility] Start: 05-01-2023 End: 70-26-4055vtoqzlmuhwGogoh A KAPLEFacility:FTMCStart: 04-27-2023 End: 59-57-2995Tnc Drop offScott A KAPLE [facility] Start: 04-27-2023 End: 82-04-0756sqahwhyytlLroyg A KAPLEFacility:FTMCStart: 04-25-2023 End: 07-28-0630pevrtczjkeUusd L SchwabFacility:FT FM BellevueStart: 03-19-2023 End: 55-71-0465tqfjmtcjciYujquVernell Calix MD Work Phone: Hematology/OncologyComment on above:Primary hypercoagulable state (HCC) (Primary Dx); Iron deficiency anemia secondary to blood loss (chronic); Vitamin D deficiency; CVA, old, speech/language deficit; Antiphospholipid antibody syndrome (HCC)Start: 03-19-2023 End: 55-63-2616Orkkkhrybyvn consultation with Song Calix MD Work Phone: SANDUSKYStart: 02-15-2023 End: 44-45-9782blbbmbghufTveav A KAPLEFacility:Val PCStart: 02-15-2023 End: 56-53-9985Wxmhmmd encounter procedureScott A KAPLE [phone]-FsuezHolmes County [facility] Start: 35-82-4536bsikmuzvqqRpybl A KAPLE Facility:Val PCStart: 12-26-2022 End: 08-81-0665usfohtvljrSqfapot Grace MisslerFacility:Val PCStart: 12-26-2022 End: 62-81-5857Eqfdumq encounter procedureLourdes Garber [phone]-GgdgaHolmes County [facility] Start: 12-22-2022 End: 17-68-9078pigbgwkxqrOmtfsVernell Calix MD Work Phone: Hematology/OncologyComment on above:Primary hypercoagulable state (HCC) (Primary Dx); Iron deficiency anemia of ; Iron deficiency anemia secondary to blood loss (chronic); Vitamin D deficiencyStart: 12-22-2022 End: 92-80-1688Mjkpyaofkhwb consultation with Song Calix MD Work Phone: SANDUSKYStart: 10-35-3102Jimwtxdsd encounterKristofer Calix MD Work Phone: Cancer Appts MCComment on above:AppointmentStart: 10-20-2022 End: 93-46-3236Tdhuzym encounter Coreen CASAS [phone]-BzyisHolmes County [facility] [facility] Start: 09-28-2022 End: 97-37-2030sqogkyejmmMzgwzVernell Calix MD Work Phone: Hematology/OncologyComment on above:Primary hypercoagulable state (HCC); CVA, old, speech/language deficit; Cerebral hyponatremiaStart: 09-28-2022 End: 59-60-4064Gztuirqnokim consultation with Song Calix MD Work Phone: SANDUSKYStart: 09-26-2022 End: 86-32-2521Dnepswg encounter procedureKristofer Calix [facility] Start: 31-23-1209Jjpxahmoc encounterValeri Yeung RN Hematology/OncologyComment on above:OrdersStart: 09-05-2022 End: 17-40-9503Kuhefap encounter procedureCorey R MONTEZ [facility] Start: 08-07-2022 End: 04-55-5452Ojqciek encounter procedureCorey R MONTEZ [facility] Start: 07-27-2022 End: 78-44-3540Trhqrx outpatient visit 25 minutesKristofer Calix MD Work Phone: Hematology/OncologyComment on above:Primary hypercoagulable state (HCC) (Primary Dx); Iron deficiency anemia secondary to blood loss (chronic); CVA, old, speech/language deficitStart: 18-37-6772NaqqkbBhufw Abhyankar MD Work Phone: Hematology/OncologyComment on above:Refill Request Start: 05-16-2022 End: 95-66-9591ifmfjbhretBR WILTON FAZIOFacility:T2Mcptk: 05-10-2022 End: 22-68-7122wgpkprjmpnBB WILTON FAZIOFacility:F5Avilh: 05-08-2022 End: 84-60-3858Ylstnfjylm and management of inpatientDR KALPANA THOMAS Facility:O3Susom: 05-05-2022 End: 78-65-4110qnfpildxcuBG KALPANA THOMASFacility:R5Iqtab: 05-01-2022 End: 42-51-5084glsyoegaxjTG WILTON FAZIOFacility:G7Gbypf: 04-28-2022 End: 89-40-7830fajrnujsnoRH WILTON FAZIOFacility:A4Avocn: 04-24-2022 End: 51-26-7435hkzqqyowsqLR KALPANA THOMASFacility:R7Cbyqz: 04-20-2022 End: 20-76-7921oaobsistymBwmyi 10 Stew Work Phone: Hematology/OncologyComment on above:Iron deficiency anemia secondary to blood loss (chronic) (Primary Dx); Iron deficiency anemia of pregnancyStart: 04-19-2022 End: 08-23-6017npqfzpnfzlRQ WILTON FAZIOFacility:Y6Axvmz: 04-14-2022 End: 05-92-7155vfltzfdoapNX WILTON FAZIOFacility:P5Nyifo: 04-07-2022 End: 64-55-8456awkromomtpRZ WILTON FAZIOFacility:W2Ojyem: 90-85-9928WdrxhhHqjao Abhyankar MD Work Phone: Hematology/OncologyComment on above:Refill Request Start: 04-05-2022 End: 73-00-9477subikiyduvHaprx 11 Stew Work Phone: Hematology/OncologyComment on above:Iron deficiency anemia secondary to blood loss (chronic) (Primary Dx); Iron deficiency anemia of pregnancyStart: 77-24-8037Xdzuaziez encounterMeme Gonzalez Hematology/OncologyComment on above:Appointment; Patient Question; Medication Question; OrdersStart: 03-31-2022 End: 46-69-0544wxkgurpqzcBB WILTON FAZIOFacility:O5Akhnj: 03-27-2022 End: 90-24-1425ctjcbuzwbkOegtcVernell Calix MD Work Phone: Hematology/OncologyComment on above:Iron deficiency anemia secondary to blood loss (chronic); Iron deficiency anemia of pregnancyStart: 03-27-2022 End: 03-38-8219Wtzkmzj encounter Dionicio Calix MD Work Phone: SANDUSKYStart: 09-98-5138Hdbxmcqds encounterKristofer Calix MD Work Phone: Cancer Appts MCComment on above:ResultsStart: 03-24-2022 End: 71-99-9480pmfytsqixaSZ WILTON FAZIOFacility:B9Ljufl: 03-16-2022 End: 89-80-5806qyhfldkmlbIV WILTON FAZIOFacility:Q6Iiqoz: 02-24-2022 End: 47-06-5886rwcelvallcFX WILTON FAZIOFacility:W2Ojtfe: 02-14-2022 End: 29-76-7433sveqysgrxqRQ WILTON FAZIOFacility:E8Vadni: 01-30-2022 End: 26-17-1338ffxmwlwlboUiekmVernell Calix MD Work Phone: Hematology/OncologyComment on above:Primary hypercoagulable state (HCC) (Primary Dx); CVA, old, speech/language deficit; Antiphospholipid antibody syndrome (HCC); Anemia, unspecified typeStart: 01-30-2022 End: 49-58-2249Pdwcuwv encounter procedureKristofer Calix MD Work Phone: SANDUSKYStart: 01-24-2022 End: 27-51-7947tvmpxjgqpfNF WILTON FAZIOFacility:P0Fglky: 01-24-2022 End: 93-77-7943qlagwdsfekRK WILTON FAZIOFacility:M0Ptwjl: 01-07-2022 End: 21-04-6494aajbosmlnhJT WILOTN FAZIOFacility:Q4Tgrht: 01-72-3410OvgsxgDdghugAwilda Pope RN Work Phone: Hematology/OncologyComment on above:Refill Request Start: 12-28-2021 End: 33-20-0301swpnodxnowVY WILTON FAZIOFacility:I3Ckdsw: 11-21-2021 End: 41-22-5216hmmdpgrlshMXWKP A KAPLEAultman Alliance Community Hospitaltart: 11-21-2021 End: 77-96-4617Azllmpgzof hospital visit by Sean Casas Work Phone: STVZ LaboratoryStart: 11-14-2021 End: 10-03-4556Ysrjbgj encounter procedureSELF [facility] Start: 91-61-7988eizbsjlqxpKY WILTON FAZIOFacility:H1 Start: 10-25-2021 End: 66-16-9443hoebfbuwdoVW WILTON FAZIOFacility:J0Vbvqb: 80-05-3426DafmopNmlmi Nickelson RNHematology/OncologyComment on above:Refill RequestStart: 09-23-2021 End: 40-60-2824adajyetdioVQ WILTON FAZIOFacility:P6Dbaey: 38-82-2436Wnzglhdta encounterMeme Easton RNHematology/OncologyComment on above:Medication QuestionStart: 81-60-8244Ralnznmyy encounterMeme Rustam cna ltc/OncologyComment on above:Patient QuestionStart: 09-01-2021 End: 56-63-9127qymvhrswzrRV WILTON FAZIOFacility:L3Rsnnv: 08-31-2021 End: 51-58-5314Onwljmo encounter Coreen CASAS [facility] Start: 08-29-2021 End: 96-83-5308vrbuqaakjfHD WILTON FAZIOFacility:G1Bgefu: 08-26-2021 End: 91-75-5439knldznrlywRD WILTON FAZIOFacility:I9Fxpio: 08-24-2021 End: 19-78-1527hipczvudbhXJ WILTON FAZIOFacility:B1Anuuv: 34-44-6037Dmujimpdt encounterMeme Easton RNHematology/OncologyComment on above:Patient Question Start: 08-19-2021 End: 76-03-0561Afyxmwu encounter Precious LONGORIA [facility] Start: 08-19-2021 End: 53-10-4673Pzd Drop offPERNELL LONGORIA [facility] Start: 08-19-2021 End: 61-10-3420Rvddunf encounter Precious LONGORIA 136-4745Fusxkq-PjzddHolmes County [facility] Start: 61-45-6886Hctytxphz encounterKristofer Calix MD Work Phone: Cancer Appts MCComment on above:Future Appointment Start: 08-01-2021 End: 58-93-1100Vhcroyy evaluation of patient and reportMa Nurse Delgado Golden Work Phone: Hematology/OncologyComment on above:Infective urethritis (Primary Dx)Start: 80-02-4854Ajvaqdd encounter procedureHaseeb Dedrickmoe MorelFacility:[facility] BStart: 39-16-9752Brzrsej encounter procedure ERIKA LONDONFacility:9459Start: 05-25-2017 End: 19-65-9604OlscexzijbEIOYR R [facility] Procedures DateProcedureProcedure DetailPerforming ClinicianStart: 48-90-8678BM OB BPP W NON-STRESSCorey Montez DO Work Phone: Start: 47-08-1834IT OB BPP W NON-STRESSCorey Montez DO Work Phone: Start: 57-98-0756Rbgnv dip stick/tablet rgnt non-auto w/o micrscpCorey Montez DO Work Phone: Start: 73-72-6251UK OB BPP W NON-STRESSCorey Montez DO Work Phone: Start: 03-47-9490FR OB GROWTHCorey Montez DO Work Phone: Start: 47-00-9079KEN CBC WITH AUTO DIFFCorey Montez DO Work Phone: Start: 94-63-2188Nbtlf dip stick/tablet rgnt non-auto w/o micrscpCorey Montez DO Work Phone: Start: 56-02-3781Knqtk dip stick/tablet rgnt non-auto w/o micrscpCorey Montez DO Work Phone: start: 56-15-9444Wquru dip stick/tablet rgnt non-auto w/o micrscpCorey Montez DO Work Phone: Start: 79-16-3490RB OB CERVICAL LENGTHCorey Montez DO Work Phone: [phone]: 17-34-5948ZFA UA (CLEAN/CATCH) CAR TRIMMER/MICRO IF IND.Wilton Montez DO Work Phone: Start: 29-76-6613DQR THYROID STIM HORMONECorey Montez DO Work Phone: Start: 69-02-8962Hzczr dip stick/tablet rgnt non-auto w/o micrscpCorey Montez DO Work Phone: Start: 29-73-8025Nofxi dip stick/tablet rgnt non-auto w/o micrscpCorey Montez DO Work Phone: Start: 04-70-2830Vlpabbm quantitative blood xcpt reagent stripStar Waggoner MD Work Phone: Start: 90-43-4722Twewm dip stick/tablet rgnt non-auto w/o micrscpCorey Montez DO Work Phone: Start: 93-01-7686Eqswj of thyroid stimulating hormone tshNot In System Ref ProvStart: 41-94-6488Dtquriku screenSanketolincecily Noyola MD Work Phone: Start: 85-09-7671Jtjw scrn 1+ class nonchromoNot In System Ref ProvStart: 07-30-4032Kwmaccqhed glycosylated o6yKuqmrbku Provider ExternalStart: 06-42-5976XUT 1&2 AB/AG SCREEN (P24 AG)Not In System Ref Prov Start: 28-18-7361Hmfp ia hepatitis b surface antigenNot In System Ref ProvStart: 96-39-7845SPEP AND SCREENNot In System Ref ProvStart: 48-15-0637YIJ CBC WITH AUTO DIFFCorey Montez DO Work Phone: Start: 51-84-3435Ooksa dip stick/tablet rgnt non-auto w/o micrscpCorey Montez DO Work Phone: Start: 61-45-8721CZ OB TRANSVAGINALCorey Montez DO Work Phone: Start: 15-51-5930Tuoln test visual color cmprsn methsCorey Montez DO Work Phone: Start: 08-79-3474TGNAQZIVI VAGINITIS (HTRX)Wilton Montez DO Work Phone: Start: 28-05-3143Siewq dip stick/tablet rgnt non-auto w/o micrscpCorey Montez DO Work Phone: Start: 15-99-7456TI PELVISCorey Montez DO Work Phone: Start: 69-41-9223Za uterus limited 1/> fetusesCorey Montez DO Work Phone: Start: 75-74-4592XVG CBC WITH AUTO DIFFCorey Montez DO Work Phone: Start: 88-04-3625TSL IMMUNOGLOBULIN GCorey Montez DO Work Phone: Start: 45-00-1374VIW IMMUNOGLOBULIN MCorey Montez DO Work Phone: Start: 43-92-4068ZEZ MISCELLANEOUS TESTCorey Monetz DO Work Phone: Start: 30-27-6872XBF APTTCorey Montez DO Work Phone: Start: 23-63-3243UUMXVW V LEIDEN MUTATIONCorey Montez DO Work Phone: Start: 92-39-1494KACPM HOMOCYSTEINECorey Montez DO Work Phone: Start: 20-87-2764JADS FIBRINOGENCorey Montez DO Work Phone: Start: 17-12-3713WQHJSJT C-FUNCTIONALCorey Montez DO Work Phone: Start: 88-53-7798CYGMWQH S-ANTIGENCorey Montez DO Work Phone: Start: 86-10-5017XVLXCP PROTHROMBIN TIME INR W/O COUM Wiltoncarmen Quinno DO Work Phone: Start: 49-64-1267VXW ANTITHROMBIN ACTIVITYCorey Montez DO Work Phone: Start: 12-63-1714Ibhud dip stick/tablet rgnt non-auto w/o micrscpCorey Montez DO Work Phone: Start: 17-68-3469VGH TESTCorey Montez DO Work Phone: Start: 48-33-0482SAC DRUG SCREEN RAPID (URINE)Wilton Ayalazio DO Work Phone: Start: 82-09-1642IW OB TRANSVAGINALCorecarmen AyalaMontez DO Work Phone: Start: 04-04-2024 End: 32-13-0703Xkgan dip stick/tablet rgnt non-auto w/o micrscpCorey Montez DO Work Phone: Start: 76-43-4952Izrmslb refused by patient Immunization not carried out because of patient decisionNoms NurseStart: 42-05-5174Mokozjoo of Products of Conception, External ApproachDR WILTON HERRMANN Start: 67-74-1585Ilvo bld gluc mntr dev cleared fda spec home useCcf Provider Start: 06-38-6373Baforhuwjzb observation [Identifier] in Cervix by Cyto stain Wilton Herrmann DO Work Phone: Start: 11-21-2021 End: 05-43-3099Rfzai-fetoprotein serumScanning Provider ExternalStart: 11-21-2021 End: 24-70-2035UUATREX STUDY NON-PROMEDICAScanning Provider ExternalStart: 09-00-2661EBQBXIBIHMUGG TESTINGTod Lopez MD Work Phone: Start: 38-81-3733Ttpra depression screening assessment Ma Chantel Work Phone: Start: 80-98-9176JEV CULTUREDHRUV PATELStart: 21-43-9137YGGUCBMOO PATELStart: 35-17-8900IKQ CELL COUNT WITH DIFFERENTIALDHRUV PATELStart: 87-42-6546OVWRMLE SIMPSON VIRUS PCRDHRUV PATELStart: 08-82-3861BEIJQJX, CSFDHRUV PATELStart: 10-19-0883NSJTRR BASIC PROTEIN, CSFDHRUV PATELStart: 80-01-3786QOOKTAIJWHI BANDINGDHRUV PATELStart: 69-54-6921TECOKBH, CSFDHRUV MONGE Start: 96-33-3362NBWYMKG-INRDHRUV PATELStart: 42-22-2629Tblfmv puncture lumbar diagnosticSOCORRO GENERAL HOSPITALV PATELStart: 12-77-1681ZWPQKUIDSDIXEYKX ANTIBODY PANELSOCORRO GENERAL HOSPITALV [facility] Start: 61-30-9763HEIBRDMTBCP AB IGG, IGM, IGADHRUV PATELStart: 38-94-6680AMGBADH PATELStart: 17-68-3481ILRROLMOVDAG, SERUMDHRUV PATELStart: 18-66-5938OZTU ARUP 1DHRUV PATELStart: 69-18-9251BFTRJACWANC PATELStart: 88-71-8896UVIFQSOQRRHO PATELStart: 04-81-0320Nbyumo of breastDERIK SIDELL Start: 20-98-0750Imichxnxko of wisdom toothDERIK SIDELL endoscopy for ovarian cysts to drainDERIK SIDELL Vaccine refused by patientCOVID-19 vaccine dose declined( Confirmed )PERNELL SIDELL Plan of Treatment DateCare ActivityDetailAuthorStart: 26-32-4076CWR Vaccine (1 - 1-dose 75+ series)RSV Vaccine (1 - 1-dose 75+ series)[facility]art: 20-68-9246Vlpbt BMI ScreeningAdult BMI ScreeningProAdena Pike Medical Centertart: 29-97-6011Eoroyyw ScreeningTobacco ScreeningZanesville City Hospital SystemStart: 21-75-1952Oedvfvg ScreeningTobacco ScreeningZanesville City Hospital SystemStart: 01-05-2026 End: 23-25-9490QA MFM with or without consultUS MFM with or without consult Imaging Routine Multigravida of advanced maternal age in second trimester Antiphospholipid syndrome complicating , antepartum Gestational diabetes mellitus (GDM) in second trimester controlled on oral hypoglycemic drug AMA (advanced maternal age) gtffkfqwgdsy68+, second trimester Hypothyroidism, unspecified type History of stroke History of loss in prior , currently in second trimester Hypothyroidism affecting in second trimester Family history of autism Hyponatremia Expected: 01/05/2026 (Approximate), Expires: 01/05/2026[facility] Work Phone: comment on above:Expected: 01/05/2026 (Approximate), Expires: 01/05/2026Start: 27-70-4860Jvzyp BMI ScreeningAdult BMI Screening [facility] SystemStart: 43-00-0734Otefmzl ScreeningTobacco Screening [facility] SystemStart: 14-71-4814Rkyws BMI ScreeningAdult BMI Screening [facility]ertart: 03-17-2025 End: 45-44-3012Acdhauqcyhto consultation with zzhfvfg3003/17/2025 8:30 AM EST Telemedicine [facility], A Department of [address] [address] Sam Callahan MD MPH [address] [place] [phone] [facility], [facility] Department of [facility]art: 03-10-2025 End: 68-77-5778Bpdspfr encounter wdnywvlas87/11/2025 9:50 AM EST Routine [facility] Piyush COLVIN [address] [place] [address] [address] [place], [id number] Wilton Herrmann DO [address] [place] [address] SHILOH [place] OBGYNStart: 03-10-2025 End: 52-42-0441Rsmrhxxgfqbf consultation with ndlpsna8203/10/2025 8:00 AM EST Telemedicine Maternal- Medicine at [facility] [address] [place] [address] Sana Palma MD [address] [place] [address] [facility]: 03-02-2025 End: 26-66-1775Wlddjm-up eclwyhzuv84/03/2025 11:30 AM EST Visit (SP) Office Hematology/Oncology [address] [place] [address] Katherine Negrete APRN.[employer] [address] [place] [address] 2 month follow upHematology/OncologyComment on above:2 month follow upStart: 03-02-2025 End: 58-13-3515Sjgilna encounter cvorgnncy78/03/2025 11:15 AM EST Office Visit [facility] [address] [place] [address] labNortVeterans Affairs Medical Center LaboratoryComment on above:labStart: 02-23-2025 End: 43-21-5276Bgjxuhb encounter aogykwect03/27/2025 9:00 AM EDT Routine NOMJaylan ZELAYAN [address] [place], [id number] Wilton Herrmann DO [address] [place] [address] SHILOH [place] OBGYNStart: 02-18-2025 End: 81-84-0265MVA W Auto Differential panel - BloodCOMPLETE BLOOD COUNT AND DIFFERENTIAL Lab Routine 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) Vitamin D deficiency Primary hypercoagulable state (HCC) Expected: 02/18/2025, Expires: 05/20/2025leveland ClinicComment on above:Expected: 02/18/2025, Expires: 05/20/2025Start: 02-18-2025 End: 32-27-7415Rgqswunxibfrl metabolic 2000 panel - Serum or PlasmaCOMPREHENSIVE METABOLIC PANEL Lab Routine Antiphospholipid antibody positive Iron deficiency anemiasecondary to blood loss (chronic) Vitamin D deficiency Primary hypercoagulable state (HCC) Expected: 02/18/2025, Expires: 05/20/2025leveland ClinicComment on above:Expected: 02/18/2025, Expires: 05/20/2025Start: 02-16-2025 End: 18-70-2813Sdypfjd encounter procedureProMedica Rheumatology, A Department of [facility] HospitalStart: 83-34-7753Gqfvsooau for malignant neoplasm of cervixNOMS HealthcareStart: 02-09-2025 End: 77-16-9071BU biophysical profile w non stress testUS biophysical profile w non stress test Imaging Routine Third trimester (HHS-HCC) 28 weeks gestation of (HHS-HCC) Anemia complicating childbirth (HHS-HCC) Anticoagulant long-term use Antiphospholipid antibody positive Blood pressure elevated without history of HTN Coagulation defect, unspecified (HHS-HCC) Expected: 02/09/2025 (Approximate), Expires: 08/10/2025 [facility] HealthcareComment on above:Expected: 02/09/2025 (Approximate), Expires: 08/10/2025Start: 02-09-2025 End: 95-74-7410UT for pregnancyUS OB follow up transabdominal approach Imaging Routine Third trimester (HHS-HCC) 28 weeks gestation of (HHS-HCC) Anemia complicating childbirth (HHS-HCC) Anticoagulant long-term use Antiphospholipid antibody positive Blood pressure elevated without history of HTN Coagulation defect, unspecified (HHS-HCC) Expected: 02/09/2025, Expires: 06/12/2025N[facility] HealthcareComment on above:Expected: 02/09/2025, Expires: 06/12/2025Start: 02-09-2025 End: 10-09-3587Rttvvso encounter qtruzwern38/13/2025 10:30 AM EDT Routine [facility] Piyush OBGYN [address] [place] [phone] Wilton Herrmann DO [address] [facility] [place] [address] [facility] Piyush OBGYNStart: 02-06-2025 End: 25-07-3204Ixlonrotfpyt consultation with fyqaxxd6702/06/2025 2:00 PM EDT Telemedicine Maternal- Medicine at [place] [address] [place] [phone] Mukul Noyola MD [address] [facility], [address] [place] [address] [facility]art: 02-05-2025 End: 07-97-0883Hrwkpro encounter lldsjoopy05/09/2025 1:00 PM EDT Appointment Maternal Medicine [facility] [address] [facility] [address] [place] [address] [phone] Medicine EnigmaStart: 02-01-2025 End: 55-78-6396Xsbj complete W/O contrastEcho complete W/O contrast Echocardiography Routine 22 weeks gestation of Antiphospholipid syndrome complicating , antepartum Multigravida of advanced maternal age in second trimester Expected: 02/01/2025 (Approximate), Expires: 01/01/2026 [facility] Work Phone: comment on above:Expected: 02/01/2025 (Approximate), Expires: 01/01/2026Start: 01-19-2025 End: 09-48-8832Lswzugl encounter pxdplrikp41/ 9:00 AM EDT Routine NOMJaylan COLVIN [address] [place] [address] [id number] Wilton Herrmann, [address] [place] [address] [facility] Piyush OBGYNStart: 01-13-2025 End: 17-18-8514Qqhfuifazyas consultation with ekaqler7701/13/2025 10:00 AM EDT Telemedicine Maternal- Medicine at [facility] [address] [facility] [address] Roxana Mays PA-C [address], [id number] [facility]: 01-05-2025 End: 68-55-1917Cmyblae encounter jyuvaufur96/08/2025 2:40 PM EDT Routine SHILOH COLVIN [address] [facility] [address] [place], [id number] Wilton Herrmann, [address] [place] [address] NOMJaylan [place] OBGYNStart: 01-05-2025 End: lead ECGECG 12 lead unit performed ECG Routine Thyroid disease Gestational diabetes mellitus (GDM), antepartum, gestational diabetes method of control unspecified ([facility]-HCC) Multigravida of advanced maternal age in second trimester ([facility]-HCC) Lightheaded Dizziness Expected: 01/05/2025 (Approximate), Expires:01/05/2026[facility] HealthcareComment on above:Expected: 01/05/2025 (Approximate), Expires: 01/05/2026Start: 01-05-2025 End: 21-17-9241Parylrbjordscj 2D completeEchocardiogram 2D complete Echocardiography Routine Thyroid disease Gestational diabetes mellitus (GDM), antepartum, gestational diabetes method of control unspecified ([facility]-HCC) Multigravida of advanced maternal age in second trimester ([facility]-HCC) Lightheaded Dizziness Expected: 01/05/2025 (Approximate), Expires: 01/05/2027[facility] Work Phone: comment on above:Expected: 01/05/2025 (Approximate), Expires: 01/05/2027Start: 01-01-2025 End: 24-42-6159Yhclqxvjflgh consultation with yiwfxsv7001/01/2025 2:30 PM EDT Telemedicine Maternal Medicine [facility] [address] [facility] [address] [place] [address] Mukul Noyola MD [address] [address] Maternal Medicine EnigmaStart: 01-01-2025 End: 70-38-6274SK MFM with or without consultUS MFM with [...] on above:Expected: 01/01/2025, Expires: 01/01/2026Start: 01-01-2025 End: 08-12-4525Neuxgvv encounter ddcvxejao73/04/2025 1:00 PM EDT Appointment Maternal Medicine [facility] [address] [facility] [address] [place] [address] Maternal Medicine EnigmaStart: 12-29-2024 COVID-19 Vaccine ( season)COVID-19 Vaccine ( season)[facility]Start: 51-01-2850Kgwsiqmcj vaccinationCoshocton Regional Medical Centertart: 12-24-2024 End: 60-88-9124SDE W Auto Differential panel - BloodCOMPLETE BLOOD COUNT AND DIFFERENTIAL Lab Routine Primary hypercoagulable state (HCC) CVA, old, spee ch/language deficit Cerebral hyponatremia Personal history of TIA (transient ischemic attack) Expected: 12/24/2024, Expires: 03/25/2025[facility] Work Phone: Comment on above:Expected: 12/24/2024, Expires: 03/25/2025Start: 12-24-2024 End: 94-54-3094Ihftkxlyq (Vitamin B12) [Mass/volume] in Serum or PlasmaVITAMIN B12 Lab Routine Primary hypercoagulable state (HCC) CVA, old, speech/language deficit Cerebral hyponatremia Personal history of TIA (transient ischemic attack) Expected: 12/24/2024, Expires: 03/25/2025[facility] ClinicComment on above:Expected: 12/24/2024, Expires: 03/25/2025Start: 12-24-2024 End: 02-57-6997Smlxeutnelval metabolic 2000 panel - Serum or PlasmaCOMPREHENSIVE METABOLIC PANEL Lab Routine Primary hypercoagulable state (HCC) CVA, old, speech/language deficit Cerebral hyponatremia Personal history of TIA (transient ischemic attack) Expected: 12/24/2024, Expires: 03/25/2025[facility] Comment on above:Expected: 12/24/2024, Expires: 03/25/2025Start: 12-24-2024 End: 33-72-0717Ocjhzewo [Mass/volume] in Serum or PlasmaFERRITIN Lab Routine Primary hypercoagulable state (HCC) CVA, old, speech/language deficit Cerebral hyponatremia Personal history of TIA (transient ischemic attack) Expected: 12/24/2024, Expires: 03/25/2025[facility] ClinicComment on above:Expected: 12/24/2024, Expires: 03/25/2025Start: 12-24-2024 End: 74-77-6125Amev and Iron binding capacity panel - Serum or PlasmaIRON AND TIBC Lab Routine Primary hypercoagulable state (HCC) CVA, old, speech/language deficit Cerebral hyponatremia Personal history of TIA (transient ischemic attack) Expected: 12/24/2024, Expires: 03/25/2025[facility] ClinicComment on above:Expected: 12/24/2024, Expires: 03/25/2025Start: 12-23-2024 End: 706570-yxarbagqhrhhqf D3 [Mass/volume] in Serum or PlasmaVITAMIN D 25 HYDROXY Lab Routine 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) Vitamin D deficiency Expected: 12/23/2024, Expires: 03/24/2025[facility] Work Phone: Comment on above:Expected: 12/23/2024, Expires: 03/24/2025Start: 12-22-2024 End: 51-80-4771Bfpfrp-up itamvhelf78/25/2025 1:30 PM EDT Visit (SP) Office Hematology/Oncology [address] [place], [place] [phone] Katherine Negrete APRN.[employer] [address] [place] [place] [address] 8 week follow up labHematology/OncologyComment on above:8 week follow up labStart: 12-22-2024 End: 00-95-1319Quxfera encounter zhguuopow73/25/2025 1:15 PM EDT Office Visit [facility] [address] [place] [address] 8 week follow up labNortV[facility] LaboratoryComment on above:8 week follow up labStart: 12-17-2024 End: 99-84-1032Ufhpftovyutd consultation with dgkzcps9312/17/2024 1:30 PM EDT Telemedicine Maternal- Medicine at [facility] [address] [place] [id number] Alisa Saba, LAB INTERN-[employer] [address] [place] [address] [facility]: 12-11-2024 End: 44-30-7930Ezrcwrf encounter bdujlbjnj11/14/2025 9:10 AM EDT Routine [facility] [address], [id number] Wilton Herrmann, DO [address] [place] [address] [facility]BGYNStart: 12-03-2024 End: 53-30-0684Ixczwptyrzpr consultation with lddimiy0712/03/2024 2:00 PM EDT Telemedicine Maternal- Medicine at [facility] [address] [place] [phone] Alisa Saba, LAB INTERN-[employer] [address] [place] [address] [facility] 11-20-2024 End: 68-07-5077Bofot fetoprotein, maternalAlpha fetoprotein, maternal Lab Routine Second trimester ([facility]) Expected: 11/20/2024 (Approximate), Expires: 01/21/2025[facility] HealthcareComment on above:Expected: 11/20/2024 (Approximate), Expires: 01/21/2025Start: 11-20-2024 End: 75-20-7648Jfsyrru encounter uiatwpkdl28/24/2025 10:10 AM EDT Routine [facility] [address] [place] [address] Wilton Herrmann, DO [address] [place] [address] [facility] BCP OBStart: 11-19-2024 End: 10-79-1278xeuutbflmo04/23/2025 9:30 AM EDT Support Visit Maternal- Medicine at [facility] [address] [place] [address] Lorena Enciso, RN [address], [address] [place] [address] Stephanie Quiros, Cindy Uribe, RD [address], [address] [place] [address] [facility]: 11-12-2024 End: 09-60-7419BJ MFM with or without consultUS MFM with or without consult Imaging Routine Gestational diabetes mellitus (GDM), antepartum, gestational diabetes method of control unspecified Expected: 11/12/2024 (Approximate), Expires: 10/13/2025[facility] Work Phone: comment on above:Expected: 11/12/2024 (Approximate), Expires: 10/13/2025Start: 10-30-2024 End: 26-94-0954Qfygeex encounter clhzquutl81/03/2025 10:40 AM EDT Routine [facility] OB [address] [facility] [place] [phone] Wilton Herrmann, DO [address] [place] [address] [facility] BCP OBStart: 10-30-2024 End: 71-73-1338Tqvqcuu encounter vcixblgqu13/03/2025 9:30 AM EDT Routine [facility] OB [address] [place] [phone] Wilton Herrmann, DO [address] [place], [place] [phone] ArrivedNOMS BCP OBComment on above: ArrivedStart: 10-28-2024 End: 58-95-4645Lbvlsh-up xvdblcnis43/01/2025 2:30 PM EDT Visit (SP) Office Hematology/Oncology [address] [place], [place] [phone] Katherine Negrete APRN.[employer] [address] [place] [address] 3 month follow upHematology/OncologyComment on above:3 month follow upStart: 10-28-2024 End: 55-84-8563Cqfmnpa encounter sicicmljz80/01/2025 2:15 PM EDT Office Visit [facility] [address] [place] [address] labs - patient prefers to come same dayNortV[facility] LaboratoryComment on above:labs - patient prefers to come same day Start: 10-27-2024 End: 27-25-4523Vfnmaic encounter erqttnbsu46/30/2025 9:20 AM EDT Office Visit [facility] OB [address] [facility] [place] [phone] Wilton Herrmann, DO [address] [place] [address] [place] [address] [facility] BCP OBStart: 10-20-2024 End: 32-98-9256Uhrtqwpemwkk / ancillary services dkneyrjmjc52/23/2025 1:00 PM EDT Ancillary Procedure [facility] OB [address] [place] [phone] [facility] BCP OBStart: 10-10-2024 End: 96-55-2849Zeqqky-up ekxwtnalv66/13/2025 10:40 AM EDT Visit (SP) Office Hematology/Oncology [address] [place] [address] Kristofer Calix MD [address] [place] [address] 3 month follow upHematology/OncologyComment on above:3 month follow upStart: 10-10-2024 End: 25-68-2491Vrieyjk encounter uhhfzmdnx64/13/2025 10:15 AM EDT Office Visit [facility] [address] [place] [address] labs - patient prefers to come [facility] dayLouis[facility] LaboratoryComment on above:labs - patient prefers to come same day Start: 10-02-2024 End: 79-91-1541HDY/RhABO/Rh Lab Routine Missed menses , unspecified gestational age Expected: 10/02/2024 (Approximate), Expires: 10/02/2025N[facility] HealthcareComment on above:Expected: 10/02/2024 (Approximate), Expires: 10/02/2025Start: 10-02-2024 End: 34-63-7189Xdacr type and Indirect antibody screen panel - BloodType and screen Lab Routine Missed menses , unspecified gestational age Expected: 10/02/2024 (Approximate), Expires: 10/02/2025[facility] Work Phone: comment on above:Expected: 10/02/2024 (Approximate), Expires: 10/02/2025Start: 10-02-2024 End: 81-61-6908Qwsxy of abuse panel - Urine by Screen methodRapid drug screen, urine Lab Routine , unspecified gestational age Encounter for supervision of normal first in first trimester Expected: 10/02/2024 (Approximate), Expires: 10/02/2025NOM[facility] HealthcareComment on above:Expected: 10/02/2024 (Approximate), Expires: 10/02/2025Start: 10-02-2024 End: 49-22-1358kyepddedgk68/05/2025 1:00 PM EDT Initial [facility] OB [address] [place] [address] HASO BCP OBStart: 10-02-2024 End: 88-14-3438Yultnyirbsty / ancillary services gefqvqncsw90/05/2025 12:30 PM EDT Ancillary Procedure [facility] OB [address] [place], [place] [phone] KNFH BCP OBStart: 08-27-2024 End: 47-68-0620Aicjeg-up uehvzydjv30/30/2025 2:00 PM EDT Visit (SP) Office Hematology/Oncology [address] [facility] [address] [address] [place], [place] [phone] Kristofer Calix MD [address] [place] [address] 3 month follow upHematology/OncologyComment on above:3 month follow upStart: 08-27-2024 End: 97-60-7239Mtrbosp encounter rnewmwywg40/30/2025 1:45 PM EDT Office Visit [facility] [address] [place] [address] labs - patient prefers to come same dayNortVeter[facility] Affairs [facility] LaboratoryComment on above:labs - patient prefers to come same day Start: 08-26-2024 End: 192294-blwgbxxyxqqqof D3 [Mass/volume] in Serum or PlasmaVITAMIN D 25 HYDROXY Lab Routine 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 Vitamin D deficiency Expected: 08/26/2024, Expires: 11/25/2024[facility] ClinicComment on above: Expected: 08/26/2024, Expires: 11/25/2024Start: 08-26-2024 End: 96-99-4878GJK W Auto Differential panel - BloodCOMPLETE BLOOD COUNT AND DIFFERENTIAL Lab Routine 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 Vitamin D deficiency Expected: 08/26/2024, Expires: 11/25/2024[facility] Work Phone: Comment on above:Expected: 08/26/2024, Expires: 11/25/2024Start: 08-26-2024 End: 21-09-6500Rcywyzgso (Vitamin B12) [Mass/volume] in Serum or PlasmaVITAMIN B12 Lab Routine 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 Vitamin D deficiency Expected: 08/26/2024, Expires: 11/25/2024[facility] ClinicComment on above: Expected: 08/26/2024, Expires: 11/25/2024Start: 08-26-2024 End: 91-60-4165Txejgbigiirio metabolic 2000 panel - Serum or PlasmaCOMPREHENSIVE METABOLIC PANEL Lab Routine Antiphospholipid antibody positive Iron deficiency anemiasecondary to blood loss (chronic) Malaise and fatigue Vitamin D deficiency Expected: 08/26/2024, Expires: 11/25/2024[facility] ClinicComment on above: Expected: 08/26/2024, Expires: 11/25/2024Start: 08-26-2024 End: 05-28-2203Xvshyohf [Mass/volume] in Serum or PlasmaFERRITIN Lab Routine 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) Malaise and fatigue Vitamin D deficiency Expected: 08/26/2024, Expires: 11/25/2024[facility] ClinicComment on above:Expected: 08/26/2024, Expires: 11/25/2024Start: 08-26-2024 End: 29-02-3550Kkwf and Iron binding capacity panel - Serum or PlasmaIRON AND TIBC Lab Routine 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 Vitamin D deficiency Expected: 08/26/2024, Expires: 11/25/2024[facility] ClinicComment on above: Expected: 08/26/2024, Expires: 11/25/2024Start: 08-26-2024 End: 90-96-4878Ehjykoefrrf [Units/volume] in Serum or PlasmaTHYROID STIMULATING HORMONE Lab Routine Antiphospholipid antibody positive 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) Malaise and fatigue Vitamin D deficiency Expected: 08/26/2024, Expires: 11/25/2024[facility] ClinicComment on above: Expected: 08/26/2024, Expires: 11/25/2024Start: 07-24-2024 End: 77-64-6179QomdgnlftnkvDpbxejqyeilb Lab Routine Irregular menstrual cycle Expected: 07/24/2024 (Approximate), Expires: 07/24/2025[facility] Work Phone: comment on above:Expected: 07/24/2024 (Approximate), Expires: 07/24/2025Start: 92-40-4174QAqS,Tdap and Td Vaccines (2 - Td or Tdap) DTaP,Tdap and Td Vaccines (2 - Td or Tdap)[facility]: 15-06-8379KKuF/Tdap/Td vaccine (2 - Td or Tdap)DTaP/Tdap/Td vaccine (2 - Td or Tdap)[facility]: 78-18-8134Aevyp microalbumin profile [facility]: 06-23-2024 End: 97-26-6639AE PelvisUS Pelvis w/ TV Imaging Routine Vaginal bleeding Vaginal discharge Pelvic pain in female Expected: 06/23/2024, Expires: 06/23/2025NOMS HealthcareComment on above:Expected: 06/23/2024, Expires: 06/23/2025Start: 06-02-2024 End: 39-96-0477Vbtbnlf encounter osmvwbobg85/03/2025 11:20 AM EST Office Visit [facility] [address] [place] [phone] Wilton Herrmann DO [address] [place] [address] SHILOH FONTENOT OBStart: 05-21-2024 End: 54-42-3129Cbespm-up xholkwkjo94/22/2025 2:20 PM EST Visit (SP) Office Hematology/Oncology [address] [place] [address] [place], [place] [phone] Kristofer Calix MD [address] [facility] [place] [address] 3 month follow up with labHematology/OncologyComment on above:3 month follow up with labStart: 05-21-2024 End: 65-00-5788Gxurseq encounter edazfmtgq03/22/2025 2:00 PM EST Office Visit [facility] [address] [place], [place] [address], [place] [address] 3 month follow up with labNortVeterans Affairs Medical Center LaboratoryComment on above:3 month follow up with labStart: 05-06-2024 End: 18-68-0043BW for pregnancyNOMS Healthcare Work Phone: comment on above:Expected: 05/06/2024, Expires: 05/06/2025Start: 05-06-2024 End: 24-20-8540Xmimauz encounter hatyjuozw00/07/2025 1:50 PM EST Routine [facility] OB [address] [place] [address] Wilton Herrmann, DO [address] [place] [address] N[facility] BCP OBStart: 04-09-2024 End: 51-46-3273Htfozp-up encounterHematology/OncologyComment on above:3 month follow up with labStart: 04-09-2024 End: 57-20-4987Oanauri encounter procedureNortVeterans Affairs Medical Center LaboratoryComment on above:3 month follow up with labStart: 04-04-2024 End: 40-93-1800JIW/RhABO/Rh Lab Routine Missed menses , unspecified gestational age Expected: 04/04/2024 (Approximate), Expires: 04/04/2025NOM[facility] HealthcareComment on above:Expected: 04/04/2024 (Approximate), Expires: 04/04/2025Start: 04-04-2024 End: 57-25-1071Elovg type and Indirect antibody screen panel - BloodType and screen Lab Routine Missed menses , unspecified gestational age Expected: 04/04/2024 (Approximate), Expires: 04/04/2025[facility] Work Phone: comment on above:Expected: 04/04/2024 (Approximate), Expires: 04/04/2025Start: 04-04-2024 End: 34-25-3420Wrfjv of abuse panel - Urine by Screen methodRapid drug screen, urine Lab Routine , unspecified gestational age Encounter for supervision of normal first in first trimester Expected: 04/04/2024 (Approximate), Expires: 04/04/2025NOTN HealthcareComment on above:Expected: 04/04/2024 (Approximate), Expires: 04/04/2025Start: 04-04-2024 End: 82-86-1405BA Pelvis transvaginalUS OB transvaginal Imaging Routine Missed menses Expected: 04/04/2024 (Approximate), Expires: 04/04/2025[facility] Comment on above:Expected: 04/04/2024 (Approximate), Expires: 04/04/2025Start: 04-02-2024 End: 234224-gqcscpcxplmhgm D3 [Mass/volume] in Serum or PlasmaVITAMIN D 25 HYDROXY Lab Routine Iron deficiency anemia secondary to blood loss (chronic) Vitamin Ddeficiency Malaise and fatigue Expected: 04/02/2024 (Approximate), Expires: 07/02/2024[facility] ClinicComment on above:Expected: 04/02/2024 (Approximate), Expires: 07/02/2024Start: 04-02-2024 End: 36-29-1390ZNN W Auto Differential panel - BloodCOMPLETE BLOOD COUNT AND DIFFERENTIAL Lab Routine Iron deficiency anemia secondary to blood loss (ch ronic) Vitamin D deficiency Malaise and fatigue Expected: 04/02/2024 (Approximate), Expires: 01/01/2025[facility] ClinicComment on above:Expected: 04/02/2024 (Approximate), Expires: 01/01/2025Start: 04-02-2024 End: 79-33-3745Vfzfzizsx (Vitamin B12) [Mass/volume] in Serum or PlasmaVITAMIN B12 Lab Routine Iron deficiency anemia secondary to blood loss (chronic) Vitamin D deficiency Malaise and fatigue Expected: 04/02/2024 (Approximate), Expires: 01/01/2025[facility] ClinicComment on above:Expected: 04/02/2024 (Approximate), Expires: 01/01/2025Start: 04-02-2024 End: 84-40-0027Tniikpleooyjz metabolic 2000 panel - Serum or PlasmaCOMPREHENSIVE METABOLIC PANEL Lab Routine Iron deficiency anemia secondary to blood loss (chronic) Vitamin D deficiency Malaise and fatigue Expected: 04/02/2024 (Approximate), Expires: 01/01/2025[facility] CenterComment on above:Expected: 04/02/2024 (Approximate), Expires: 01/01/2025Start: 04-02-2024 End: 62-96-9788Nfsczbdj [Mass/volume] in Serum or PlasmaFERRITIN Lab Routine Iron deficiency anemia secondary to blood loss (chronic) Vitamin D deficiency M alaise and fatigue Expected: 04/02/2024 (Approximate), Expires: 01/01/2025 [facility]:Expected: 04/02/2024 (Approximate), Expires: 01/01/2025Start: 04-02-2024 End: 21-18-9639Dygwih [Mass/volume] in Serum or PlasmaFOLATE, SERUM Lab Routine Iron deficiency anemia secondary to blood loss (chronic) Vitamin D deficiency Malaise and fatigue Expected: 04/02/2024 (Approximate), Expires: 01/01/2025 [facility] HospitalComment on above:Expected: 04/02/2024 (Approximate), Expires: 01/01/2025Start: 04-02-2024 End: 29-67-1838Yerr and Iron binding capacity panel - Serum or PlasmaIRON AND TIBC Lab Routine Iron deficiency anemia secondary to blood loss (chronic) Vitamin D deficiency Malaise and fatigue Expected: 04/02/2024 (Approximate), Expires: 01/01/2025[facility] CenterComment on above:Expected: 04/02/2024 (Approximate), Expires: 01/01/2025Start: 04-02-2024 End: 14-98-8993Razjgtctivt [Units/volume] in Serum or PlasmaTHYROID STIMULATING HORMONE Lab Routine Iron deficiency anemia secondary to blood loss (chronic) Vit vogel D deficiency Malaise and fatigue Expected: 04/02/2024 (Approximate), Expires: 07/02/2024[facility] Work Phone: Comment on above:Expected: 04/02/2024 (Approximate), Expires: 07/02/2024Start: 01-05-2024 End: 32-61-5152QPC W Auto Differential panel - BloodCOMPLETE BLOOD COUNT AND DIFFERENTIAL Lab Routine Iron deficiency anemia secondary to blood loss (ch ronic) Vitamin D deficiency Malaise and fatigue Expected: 01/05/2024 (Approximate), Expires: 01/01/2025[facility] ClinicComment on above:Expected: 01/05/2024 (Approximate), Expires: 01/01/2025Start: 01-05-2024 End: 32-01-3378Bgmzqemewiqzl metabolic 2000 panel - Serum or PlasmaCOMPREHENSIVE METABOLIC PANEL Lab Routine Iron deficiency anemia secondary to blood loss (chronic) Vitamin D deficiency Malaise and fatigue Expected: 01/05/2024 (Approximate), Expires: 01/01/2025[facility] ClinicComment on above:Expected: 01/05/2024 (Approximate), Expires: 01/01/2025Start: 01-02-2024 End: 74-13-6206Hcujrb-up /04/2024 1:45 PM EDT Visit (SP) Office Hematology/Oncology [address] [place], [place] [phone] Kristofer Calix MD [address] [place] [address] 8 WEEK FOLLOW UPHematology/OncologyComment on above:8 WEEK FOLLOW UPStart: 01-02-2024 End: 86-00-5651Bxaogsp encounter urwcohvwq73/04/2024 1:30 PM EDT Office Visit [facility] [address] [place] [address] 8 WEEK FOLLOW UPNortVeterans Affairs Medical Center LaboratoryComment on above:8 WEEK FOLLOW UPStart: 22-33-0668Bgvfv-19 Vaccine ( season)Covid-19 Vaccine ( season)[facility]: 52-87-7864Kjhfx-19 Vaccine ( season)Covid-19 Vaccine ( season)[facility]: 07-55-4578Pcbvrxqhr vaccinationR[facility]ide [facility] Hospital Start: 11-29-2023 End: 41-93-8747klyoxkbvgw19/01/2024 1:30 PM EDT Infusion Center Hematology/Oncology [address] [place] [address] VENOFER 300Hematology/OncologyComment on above:VENOFER 300Start: 11-22-2023 End: 66-31-9954actchrcgsw28/25/2024 1:30 PM EDT Infusion Center Hematology/Oncology [address] [place] [address] VENOFER 300Hematology/OncologyComment on above:VENOFER 300Start: 11-15-2023 End: 27-36-3996mlymzqbjwn26/18/2024 1:30 PM EDT Infusion Center Hematology/Oncology [address] [place] [address] VENOFER 300Hematology/OncologyComment on above:VENOFER 300Start: 09-13-2023 End: 252114-hegelyqwpcwkvh D3 [Mass/volume] in Serum or PlasmaVITAMIN D 25 HYDROXY Lab Routine Vitamin D deficiency 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) Expected: 09/13/2023 (Approximate), Expires: 12/13/2023[facility] Work Phone: Comment on above:Expected: 09/13/2023 (Approximate), Expires: 12/13/2023Start: 09-13-2023 End: 47-93-3871Znnaagm.ionized [Moles/volume] in BloodCALCIUM IONIZED BLOOD Lab Routine Vitamin D deficiency 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) Expected: 09/13/2023 (Approximate), Expires: 12/13/2023 [facility] Work Phone: Comment on above:Expected: 09/13/2023 (Approximate), Expires: 12/13/2023Start: 09-13-2023 End: 69-70-6697BVD W Auto Differential panel - BloodCBC + DIFF Lab Routine Vitamin D deficiency 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) Expected: 09/13/2023 (Approximate), Expires: 06/15/2024[facility] Work Phone: Comment on above:Expected: 09/13/2023 (Approximate), Expires: 06/15/2024Start: 09-13-2023 End: 15-45-3507Ghtmygqes (Vitamin B12) [Mass/volume] in Serum or PlasmaVITAMIN B12 BLOOD Lab Routine Vitamin D deficiency 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) Expected: 09/13/2023 (Approximate), Expires: 06/15/2024[facility] Work Phone: Comment on above:Expected: 09/13/2023 (Approximate), Expires: 06/15/2024Start: 09-13-2023 End: 31-70-5372Dwkbrehxkuhla metabolic 2000 panel - Serum or PlasmaCOMP METABOLIC PANEL Lab Routine Vitamin D deficiency 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) Expected: 09/13/2023 (Approximate), Expires: 06/15/2024[facility] Work Phone: Comment on above:Expected: 09/13/2023 (Approximate), Expires: 06/15/2024Start: 09-13-2023 End: 73-14-1973Itdwkclz [Mass/volume] in Serum or PlasmaFERRITIN BLD Lab Routine Vitamin D deficiency 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) Expected: 09/13/2023 (Approximate), Expires: 06/15/2024[facility] Work Phone: Comment on above:Expected: 09/13/2023 (Approximate), Expires: 06/15/2024Start: 09-13-2023 End: 01-59-6247Hsdhhj [Mass/volume] in Serum or PlasmaFOLATE SERUM Lab Routine Vitamin D deficiency 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) Expected: 09/13/2023 (Approximate), Expires: 06/15/2024[facility] Work Phone: Comment on above:Expected: 09/13/2023 (Approximate), Expires: 06/15/2024Start: 09-13-2023 End: 22-75-7713Slnx and Iron binding capacity panel - Serum or PlasmaIRON + TIBC Lab Routine Vitamin D deficiency 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) Expected: 09/13/2023 (Approximate), Expires: 06/15/2024 [facility] Work Phone: Comment on above:Expected: 09/13/2023 (Approximate), Expires: 06/15/2024Start: 09-13-2023 End: 40-05-1863Utrzdwujns.intact [Mass/volume] in Serum or PlasmaPTH INTACT BLD Lab Routine Vitamin D deficiency 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) Expected: 09/13/2023 (Approximate), Expires: 12/13/2023 [facility] Work Phone: Comment on above:Expected: 09/13/2023 (Approximate), Expires: 12/13/2023Start: 06-15-2023 End: 289550-toqqlxutojluvy D3 [Mass/volume] in Serum or PlasmaVITAMIN D 25 HYDROXY Lab Routine Vitamin D deficiency Expected: 06/15/2023 (Approximate), Expires: 09/14/2023[facility] Work Phone: Comment on above:Expected: 06/15/2023 (Approximate), Expires: 09/14/2023Start: 06-15-2023 End: 81-97-1089Xnptdda.ionized [Moles/volume] in BloodCALCIUM IONIZED BLOOD Lab Routine Vitamin D deficiency Hypercalcemia Expected: 06/15/2023 (Approximate), Expires: 09/14/2023[facility] Work Phone: Comment on above:Expected: 06/15/2023 (Approximate), Expires: 09/14/2023Start: 06-15-2023 End: 83-04-3616CND W Auto Differential panel - BloodCBC + DIFF Lab Routine Iron deficiency anemia secondary to blood loss (chronic) Expected: 06/15/2023 (Approximate), Expires: 06/12/2024[facility] Work Phone: Comment on above:Expected: 06/15/2023 (Approximate), Expires: 06/12/2024Start: 06-15-2023 End: 01-44-2427Ajeogyffg (Vitamin B12) [Mass/volume] in Serum or PlasmaVITAMIN B12 BLOOD Lab Routine Iron deficiency anemia secondary to blood loss (chronic) Expected: 06/15/2023 (Approximate), Expires: 06/12/2024[facility] Work Phone: Comment on above:Expected: 06/15/2023 (Approximate), Expires: 06/12/2024Start: 06-15-2023 End: 47-31-3922Jtzalatuntant metabolic 2000 panel - Serum or PlasmaCOMP METABOLIC PANEL Lab Routine Iron deficiency anemia secondary to blood loss (chronic) Expected:06/15/2023 (Approximate), Expires: 06/12/2024[facility] Work Phone: Comment on above:Expected: 06/15/2023 (Approximate), Expires: 06/12/2024Start: 06-15-2023 End: 47-30-7949Dlrydvln [Mass/volume] in Serum or PlasmaFERRITIN BLD Lab Routine Iron deficiency anemia secondary to blood loss (chronic) Expected: 06/15/2023 (Approximate), Expires: 06/12/2024[facility] Work Phone: Comment on above:Expected: 06/15/2023 (Approximate), Expires: 06/12/2024Start: 06-15-2023 End: 73-33-4193Ushucl [Mass/volume] in Serum or PlasmaFOLATE SERUM Lab Routine Iron deficiency anemia secondary to blood loss (chronic) Expected: 06/15/2023 (Approximate), Expires: 06/12/2024[facility] Work Phone: Comment on above:Expected: 06/15/2023 (Approximate), Expires: 06/12/2024Start: 06-15-2023 End: 28-15-3453Mlrj and Iron binding capacity panel - Serum or PlasmaIRON + TIBC Lab Routine Iron deficiency anemia secondary to blood loss (chronic) Expected: 06/15/2023 (Approximate), Expires: 06/12/2024[facility] Work Phone: Comment on above:Expected: 06/15/2023 (Approximate), Expires: 06/12/2024Start: 06-15-2023 End: 73-14-3655MRA, INTACT (WITHOUT CALCIUM)PTH, INTACT (WITHOUT CALCIUM) Lab Routine Vitamin D deficiency Hypercalcemia Expected: 06/15/2023 (Approximate), Expires: 09/14/2023[facility] Work Phone: Comment on above:Expected: 06/15/2023 (Approximate), Expires: 09/14/2023Start: 06-15-2023 End: 11-81-5264Adsgtijpxkl [Units/volume] in Serum or PlasmaTSH BLD Lab Routine Malaise and fatigue Expected: 06/15/2023 (Approximate), Expires: 09/14/2023 [facility] Work Phone: Comment on above:Expected: 06/15/2023 (Approximate), Expires: 09/14/2023Start: 06-14-2023 End: 760067-jirfptivhhmozl D3 [Mass/volume] in Serum or PlasmaVITAMIN D 25 HYDROXY Lab Routine Hypercalcemia Vitamin D deficiency Expected: 06/14/2023 (Approximate), Expires: 09/13/2023[facility] Work Phone: Comment on above:Expected: 06/14/2023 (Approximate), Expires: 09/13/2023Start: 06-14-2023 End: 60-18-8696Zwrgugx.ionized [Moles/volume] in BloodCALCIUM IONIZED BLOOD Lab Routine Hypercalcemia Vitamin D deficiency Expected: 06/14/2023 (Approximate), Expires: 09/13/2023[facility] Work Phone: Comment on above:Expected: 06/14/2023 (Approximate), Expires: 09/13/2023Start: 06-14-2023 End: 96-65-3855OOX, INTACT (WITHOUT CALCIUM)PTH, INTACT (WITHOUT CALCIUM) Lab Routine Hypercalcemia Vitamin D deficiency Expected: 06/14/2023 (Approximate), Expires: 09/13/2023[facility] Work Phone: Comment on above:Expected: 06/14/2023 (Approximate), Expires: 09/13/2023Start: 06-14-2023 End: 84-70-7777Wduufgtwsap [Units/volume] in Serum or PlasmaTSH BLD Lab Routine Hypercalcemia Malaise and fatigue Expected: 06/14/2023 (Approximate), Expires: 0 09/13/2023[facility] Work Phone: Comment on above:Expected: 06/14/2023 (Approximate), Expires: 09/13/2023Start: 05-14-2023 End: 00-56-2934BAA W Auto Differential panel - BloodCBC + DIFF Lab Routine Primary hypercoagulable state (HCC) Iron deficiency anemia secondary to blood loss (chronic) Vitamin D deficiency CVA, old, 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) Expected: 05/14/2023 (Approximate), Expires: 03/19/2024[facility] Work Phone: Comment on above:Expected: 05/14/2023 (Approximate), Expires: 03/19/2024Start: 05-14-2023 End: 00-18-6623Apfgtbkiz (Vitamin B12) [Mass/volume] in Serum or PlasmaVITAMIN B12 BLOOD Lab Routine Primary hypercoagulable state (HCC) Iron deficiency anemia secondary to blood loss (chronic) Vitamin D deficiency CVA, old, 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) Expected: 05/14/2023 (Approximate), Expires: 03/19/2024[facility] Work Phone: Comment on above:Expected: 05/14/2023 (Approximate), Expires: 03/19/2024Start: 05-14-2023 End: 72-20-7350Ekurvyfyhmxhk metabolic 2000 panel - Serum or PlasmaCOMP METABOLIC PANEL Lab Routine Primary hypercoagulable state (HCC) Iron deficiency anemia secondary to blood loss (chronic) Vitamin D deficiency CVA, old, 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) Expected: 05/14/2023 (Approximate), Expires: 03/19/2024[facility] Work Phone: Comment on above:Expected: 05/14/2023 (Approximate), Expires: 03/19/2024Start: 05-14-2023 End: 25-64-2538Ktiogbdx [Mass/volume] in Serum or PlasmaFERRITIN BLD Lab Routine Primary hypercoagulable state (HCC) Iron deficiency anemia secondary to blood loss (chronic) Vitamin D deficiency CVA, old, 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) Expected: 05/14/2023 (Approximate), Expires: 03/19/2024[facility] Work Phone: Comment on above:Expected: 05/14/2023 (Approximate), Expires: 03/19/2024Start: 05-14-2023 End: 15-11-8941Ewzstt [Mass/volume] in Serum or PlasmaFOLATE SERUM Lab Routine Primary hypercoagulable state (HCC) Iron deficiency anemia secondary to blood loss (chronic) Vitamin D deficiency CVA, old, 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) Expected: 05/14/2023 (Approximate), Expires: 03/19/2024[facility] Work Phone: Comment on above:Expected: 05/14/2023 (Approximate), Expires: 03/19/2024Start: 05-14-2023 End: 04-02-3635Ycwu and Iron binding capacity panel - Serum or PlasmaIRON + TIBC Lab Routine Primary hypercoagulable state (HCC) Iron deficiency anemia secondary to blood loss (chronic) Vitamin D deficiency CVA, old, 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) Expected: 05/14/2023 (Approximate), Expires: 03/19/2024[facility] Work Phone: Comment on above:Expected: 05/14/2023 (Approximate), Expires: 03/19/2024Start: 86-79-7205Qeqgskznxb Health ScreeningBehavioral Health ScreeningCoshocton Regional Medical Centertart: 98-27-6316Wddyppidtu AssessmentDepression AssessmentCoshocton Regional Medical Centertart: 02-16-2023 End: [id number]-yuoqcphyciguon D3 [Mass/volume] in Serum or PlasmaVITAMIN D 25 HYDROXY Lab Routine Primary hypercoagulable state (HCC) Iron deficiency anemia secondary to blood loss (chronic) Vitamin D deficiency Expected: 02/16/2023 (Approximate), Expires: 04/18/2023[facility] Work Phone: Comment on above:Expected: 02/16/2023 (Approximate), Expires: 04/18/2023Start: 02-16-2023 End: 65-81-4766RDG W Auto Differential panel - BloodCBC + DIFF Lab Routine Primary hypercoagulable state (HCC) Iron deficiency anemia secondary to blood loss (chronic) Expected: 02/16/2023 (Approximate), Expires: 12/23/2023[facility] Work Phone: Comment on above:Expected: 02/16/2023 (Approximate), Expires: 12/23/2023Start: 02-16-2023 End: 56-51-2131Zrtrwfkcr (Vitamin B12) [Mass/volume] in Serum or PlasmaVITAMIN B12 BLOOD Lab Routine Primary hypercoagulable state (HCC) Iron deficiency anemia secondary to blood loss (chronic) Expected: 02/16/2023 (Approximate), Expires: 12/23/2023[facility] Work Phone: Comment on above:Expected: 02/16/2023 (Approximate), Expires: 12/23/2023Start: 02-16-2023 End: 39-00-6604Zskeutbpthvdb metabolic 2000 panel - Serum or PlasmaCOMP METABOLIC PANEL Lab Routine Primary hypercoagulable state (HCC) Iron deficiency anemia secondary to blood loss (chronic) Expected: 02/16/2023 (Approximate), Expires: 12/23/2023[facility] Work Phone: Comment on above:Expected: 02/16/2023 (Approximate), Expires: 12/23/2023Start: 02-16-2023 End: 62-99-8690Rfvoutby [Mass/volume] in Serum or PlasmaFERRITIN BLD Lab Routine Primary hypercoagulable state (HCC) Iron deficiency anemia secondary to blood loss (chronic) Expected: 02/16/2023 (Approximate), Expires: 12/23/2023[facility] Work Phone: Comment on above:Expected: 02/16/2023 (Approximate), Expires: 12/23/2023Start: 02-16-2023 End: 46-11-3345Zgczqb [Mass/volume] in Serum or PlasmaFOLATE SERUM Lab Routine Primary hypercoagulable state (HCC) Iron deficiency anemia secondary to blood loss (chronic) Expected: 02/16/2023 (Approximate), Expires: 12/23/2023[facility] Work Phone: Comment on above:Expected: 02/16/2023 (Approximate), Expires: 12/23/2023Start: 02-16-2023 End: 48-04-2994Mxwu and Iron binding capacity panel - Serum or PlasmaIRON + TIBC Lab Routine Primary hypercoagulable state (HCC) Iron deficiency anemia secondary to blood loss (chronic) Expected: 02/16/2023 (Approximate), Expires: 12/23/2023[facility] Work Phone: Comment on above:Expected: 02/16/2023 (Approximate), Expires: 12/23/2023Start: 60-34-1582Novtc-19 Vaccine ( season)Covid- 19 Vaccine ( season)[facility]: 14-48-1861Xmclkalda vaccinationCoshocton Regional Medical Centertart: 39-03-0987VRX TESTINGPAP TESTINGCoshocton Regional Medical Centertart: 01-18-5577Pjixrpyef for malignant neoplasm of cervixPap Testing [facility]: 11-28-2022 End: 39-59-6613SQZ W Auto Differential panel - BloodCBC + DIFF Lab Routine Primary hypercoagulable state (HCC) CVA, old, speech/language deficit Cerebral hyponatremia Expected: 11/28/2022 (Approximate), Expires: 10/04/2023[facility] Work Phone: Comment on above:Expected: 11/28/2022 (Approximate), Expires: 10/04/2023Start: 11-28-2022 End: 47-24-8975Iwixtuvvh (Vitamin B12) [Mass/volume] in Serum or PlasmaVITAMIN B12 BLOOD Lab Routine Primary hypercoagulable state (HCC) CVA, old, speech/language deficitCerebral hyponatremia Expected: 11/28/2022 (Approximate), Expires: 10/04/2023[facility] Work Phone: Comment on above:Expected: 11/28/2022 (Approximate), Expires: 10/04/2023Start: 11-28-2022 End: 49-93-4315Dmtsblfhsjbxq metabolic 2000 panel - Serum or PlasmaCOMP METABOLIC PANEL Lab Routine Primary hypercoagulable state (HCC) CVA, old, speech/language deficit Cerebral hyponatremia Expected: 11/28/2022 (Approximate), Expires: 10/04/2023[facility] Work Phone: Comment on above:Expected: 11/28/2022 (Approximate), Expires: 10/04/2023Start: 11-28-2022 End: 68-19-0049Tngiqkfs [Mass/volume] in Serum or PlasmaFERRITIN BLD Lab Routine Primary hypercoagulable state (HCC) CVA, old, speech/language deficit Cerebral hyponatremia Expected: 11/28/2022 (Approximate), Expires: 10/04/2023[facility] Work Phone: Comment on above:Expected: 11/28/2022 (Approximate), Expires: 10/04/2023Start: 11-28-2022 End: 59-17-6541Ppvodz [Mass/volume] in Serum or PlasmaFOLATE SERUM Lab Routine Primary hypercoagulable state (HCC) CVA, old, speech/language deficit Cerebral hyponatremia Expected: 11/28/2022 (Approximate), Expires: 10/04/2023[facility] Work Phone: Comment on above:Expected: 11/28/2022 (Approximate), Expires: 10/04/2023Start: 11-28-2022 End: 99-90-2360Nrre and Iron binding capacity panel - Serum or PlasmaIRON + TIBC Lab Routine Primary hypercoagulable state (HCC) CVA, old, speech/language deficit Cerebral hyponatremia Expected: 11/28/2022 (Approximate), Expires: 10/04/2023[facility] Work Phone: Comment on above:Expected: 11/28/2022 (Approximate), Expires: 10/04/2023Start: 09-21-2022 End: 26-53-3661ONM W Auto Differential panel - BloodCBC + DIFF Lab Routine Primary hypercoagulable state (HCC) 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, old, speech/language deficit Expected: 09/21/2022 (Approximate), Expires: 07/28/2023[facility] Work Phone: Comment on above:Expected: 09/21/2022 (Approximate), Expires: 07/28/2023Start: 09-21-2022 End: 32-32-1974Cmeyschvh (Vitamin B12) [Mass/volume] in Serum or PlasmaVITAMIN B12 BLOOD Lab Routine Primary hypercoagulable state (HCC) 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, old, speech/language deficit Expected: 09/21/2022 (Approximate), Expires: 07/28/2023[facility] Work Phone: Comment on above:Expected: 09/21/2022 (Approximate), Expires: 07/28/2023Start: 09-21-2022 End: 55-50-8675Xpbyewjpqfbdj metabolic 2000 panel - Serum or PlasmaCOMP METABOLIC PANEL Lab Routine Primary hypercoagulable state (HCC) 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, old, speech/language deficit Expected: 09/21/2022 (Approximate), Expires: 07/28/2023[facility] Work Phone: Comment on above:Expected: 09/21/2022 (Approximate), Expires: 07/28/2023Start: 09-21-2022 End: 64-94-6942Mfrunypn [Mass/volume] in Serum or PlasmaFERRITIN BLD Lab Routine Primary hypercoagulable state (HCC) 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, old, speech/language deficit Expected: 09/21/2022 (Approximate), Expires: 07/28/2023[facility] Work Phone: Comment on above:Expected: 09/21/2022 (Approximate), Expires: 07/28/2023Start: 09-21-2022 End: 27-44-4005Uvsayf [Mass/volume] in Serum or PlasmaFOLATE SERUM Lab Routine Primary hypercoagulable state (HCC) 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, old, speech/language deficit Expected: 09/21/2022 (Approximate), Expires: 07/28/2023[facility] Work Phone: Comment on above:Expected: 09/21/2022 (Approximate), Expires: 07/28/2023Start: 09-21-2022 End: 67-34-8901Emyw and Iron binding capacity panel - Serum or PlasmaIRON + TIBC Lab Routine Primary hypercoagulable state (HCC) 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, old, speech/language deficit Expected: 09/21/2022 (Approximate), Expires: 07/28/2023[facility] Work Phone: Comment on above:Expected: 09/21/2022 (Approximate), Expires: 07/28/2023Start: 89-94-5610HLBKOMQELG ASSESSMENTDEPRESSION ASSESSMENT [facility]: 01-30-2022 End: 89-13-7387Klpxxvtw [Mass/volume] in Serum or PlasmaFERRITIN BLD Lab Routine Anemia, unspecified type Expected: 01/30/2022, Expires: 01/30/2023[facility] Work Phone: Comment on above:Expected: 01/30/2022, Expires: 01/30/2023Start: 01-30-2022 End: 12-24-2861Bodd and Iron binding capacity panel - Serum or PlasmaIRON + TIBC Lab Routine Anemia, unspecified type Expected: 01/30/2022, Expires: 01/30/2023 [facility] Work Phone: Comment on above:Expected: 01/30/2022, Expires: 01/30/2023Start: 03-58-0843Gvtrqzxrk vaccinationCoshocton Regional Medical Centertart: 12-29-2021 End: 15-32-3558Modnfga encounter bybafjbgc96/01/2022 [facility]ine [facility]inatologyMerB[facility] Maternal MedStart: 54-28-9847NMTPPDHDEB ASSESSMENTDEPRESSION ASSESSMENTCoshocton Regional Medical Centertart: 34-78-2064Mehkg depression screening assessmentDEPRESSION SCREENINGCoshocton Regional Medical Centertart: 12-04-2020 Screening for malignant neoplasm of cervixCervical Cancer ScreeningCoshocton Regional Medical Centertart: 72-27-9640Fxupiuml screenDiabetes [facility] Start: 18-55-2499BYZ TESTINGHPV TESTINGCoshocton Regional Medical Centertart: 10-22-2015 Screening for malignant neoplasm of cervixDOMINION HOSPITALStart: 10-54-0216JQA Vaccine (1 - 3-dose SCDM series)HPV Vaccine (1 - 3-dose SCDM series)[facility]: 06-50-9891YZI Vaccines (1 - 3-dose SCDM series)HPV Vaccines (1 - 3-dose SCDM series)[facility]: 50-84-0377Itvhwdfyh for malignant neoplasm of cervixPap smearDOMINION HOSPITALStart: 2004 DTaP,Tdap and Td Vaccines (1 - Tdap)DTaP,Tdap and Td Vaccines (1 - Tdap) [facility]: 89-18-1691Ldlusflse B Vaccine (1 of 3 - 19+ 3-dose series)Hepatitis B Vaccine (1 of 3 - 19+ 3-dose series)[facility]: 11-45-5508Chxlwahhs B Vaccines (1 of 3 - 19+ 3-dose series)Hepatitis B Vaccines (1 of 3 - 19+ 3-dose series)[facility]Start: 79-01-2885Kxkfl BMI Follow Up PlanAdult BMI Follow Up PlanNovant Health Rowan Medical Centertart: 81-84-8368Acbqk BMI ScreeningAdult BMI ScreeningNovant Health Rowan Medical Centertart: 11-43-9998Knqvhhq ScreeningAnxiety ScreeningCoshocton Regional Medical Centertart: 93-19-1492Cxdluuavsj Screening Depression ScreeningCoshocton Regional Medical Centertart: 41-41-6284PSFKVMGKT C SCREENING HEPATITIS C SCREENINGCoshocton Regional Medical Centertart: 89-42-1694Epiyujcxd C screeningBON [facility] Hospitalart: 71-50-5734KKX SCREENINGHIV SCREENINGRiverside [facility] Hospital Start: 35-45-8261ZFB screeningHIV ScreeningUniversity Hospitals Geneva Medical Centerrt: 1998 History of varicella vaccinationVaricella Vaccines (1 of 2 - 13+ 2-dose series) [facility]Start: 51-83-0363Nqqdrcpzzs ScreenDepression ScreenBON [facility]: 20-12-0485Gcpuidrxwv ScreeningDepression ScreeningNovant Health Rowan Medical Centertart: 07-88-5164Svgtwyx ScreeningTobacco ScreeningNovant Health Rowan Medical Centertart: 91-01-7549CEyE/Tdap/Td Vaccines (1 - Tdap)DTaP/Tdap/Td Vaccines (1 - Tdap)[facility]Start: 64-85-1557SCECT-19 VACCINE (#1)COVID-19 VACCINE (#1)[facility]: 31-73-9754CXKYM-19 VACCINE (1)COVID-19 VACCINE (1) [facility]: 69-53-2228CBQ Vaccines (1 of 1 - Standard series)MMR Vaccines (1 of 1 - Standard series)[facility]'sStart: 54-78-8193Sdsjcfeke vaccine (1 of 2 - 2-dose childhood series)Varicella vaccine (1 of 2 - 2-dose childhood series)[facility]: 93-39-7267VCTQV-19 Vaccine (#1) COVID-19 Vaccine (#1)[facility] Hospitalart: 78-98-7480AEZINAMLR B (1 of 3 - 3-dose series)HEPATITIS B (1 of 3 - 3-dose series)[facility]: 95-36-4801Arklkejnx B Vaccine (1 of 3 - 3-dose series)Hepatitis B Vaccine (1 of 3 - 3-dose series)[facility] End: 85-51-3487Nmhgh Fetoprotein, MaternalBON [facility] Work Phone: comment on above:Once for 1 Occurrences starting 11/21/2021 until 11/21/2021 End: 64-79-2281Goqpxhkddqf Ab, HEp-2 Substrate, S (NASEEM by IFA)Antinuclear Ab, HEp-2 Substrate, S (NASEEM by IFA) Lab Routine Antiphospholipid syndrome Antiphospholipid syndrome complicating , antepartum History of CVA (cerebrovascular accident) 1 Occurrences starting 02/16/2025 until 02/16/2026 [facility] Work Phone: comment on above:1 Occurrences starting 02/16/2025 until 6Bacteria identified in Urine by CultureUrine culture Microbiology Routine Missed menses Ordered: 04/04/2024[facility] HealthcareComment on above:Ordered: 04/04/2024acteria identified in Urine by CultureUrine culture Microbiology Routine Missed menses Ordered: 10/02/2024[facility] HealthcareComment on above:Ordered: 10/02/2024 End: 71-11-8045NCZ W Auto Differential panel - BloodCBC + DIFF Lab Routine Primary hypercoagulable state (HCC) CVA, old, 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) Every 2 months for 6 Occurrences starting 01/30/2022 until 01/30/2023[facility] Work Phone: Comment on above:Every 2 months for 6 Occurrences starting 01/30/2022 until 01/30/2023BC W Auto Differential panel - BloodCBC and differential Lab Routine Missed menses , unspecified gestational age Ordered: 04/04/2024[facility] HealthcareComment on above:Ordered: 4CBC W Auto Differential panel - BloodCBC and differential Lab Routine Missed menses , unspecified gestational age Ordered: 10/02/2024[facility] HealthcareComment on above:Ordered: 5CBC W Auto Differential panel - BloodCBC and differential Lab Routine 28 weeks gestation of ([facility]) Ordered: 02/09/[address] Work Phone: comment on above:Ordered: 02/09/2025HLAMYDIA TRACHOMATIS (GENITO/STI)CHLAMYDIA TRACHOMATIS (GENITO/STI) Lab Routine Vaginal bleeding Vaginal discharge Ordered: 06/23/2024[facility] HealthcareComment on above: Ordered: 06/23/2024HLAMYDIA TRACHOMATIS (GENITO/STI)CHLAMYDIA TRACHOMATIS (GENITO/STI) Lab Routine Vaginal discharge Ordered: 11/20/2024[facility] Healthcare Comment on above:Ordered: 11/20/2024 End: 13-88-5485Rznhhykljl profile (C3 AND C4)Complement profile (C3 AND C4) Lab Routine Antiphospholipid syndrome Antiphospholipid syndrome complicating , antepartum History of CVA (cerebrovascular accident) 1 Occurrences starting 02/16/2025 until 02/16/2026[facility] SystemComment on above:1 Occurrences starting 02/16/2025 until 02/16/2026 End: 57-75-4374Cjdpxocvyibdw metabolic 2000 panel - Serum or PlasmaCOMP METABOLIC PANEL Lab Routine Primary hypercoagulable state (HCC) CVA, old, 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) Every 2 months for 6 Occurrences starting 01/30/2022 until 01/30/2023[facility] Work Phone: Comment on above:Every 2 months for 6 Occurrences starting 01/30/2022 until 01/30/2023 End: 13-60-4127EKH double-stranded (dsDNA) Abs by Crithidia luciliae IFADNA double-stranded (dsDNA) Abs by Crithidia luciliae IFA Lab Routine Antiphospholipid syndrome Antiphospholipid syndrome complicating , antepartum History of CVA (cerebrovascular accident) 1 Occurrences starting 02/16/2025 until 02/16/2026[facility] SystemComment on above:1 Occurrences starting 02/16/2025 until 02/16/2026 End: 72-59-8716UXA PanelENA Panel Lab Routine Antiphospholipid syndrome Antiphospholipid syndrome complicating , antepartum History of CVA (cerebrovascular accident) 1 Occurrences starting 02/16/2025 until 02/16/2026 [facility] SystemComment on above:1 Occurrences starting 02/16/2025 until 02/16/2026Hemoglobin A1c/Hemoglobin.total in BloodHemoglobin A1c Lab Routine Missed menses , unspecified gestational age Ordered: 04/04/2024[facility] HealthcareComment on above:Ordered: 04/04/2024Hemoglobin A1c/Hemoglobin.total in BloodHemoglobin A1c Lab Routine Missed menses , unspecified gestational age Ordered: 10/02/2024[facility] HealthcareComment on above:Ordered: 10/02/2024Hepatitis B virus surface Ag [Presence] in Serum or Plasma by ImmunoassayHepatitis B surface antigen Lab Routine Missed menses , unspecified gestational age Ordered: 04/04/2024[facility] HealthcareComment on above: Ordered: 04/04/2024Hepatitis B virus surface Ag [Presence] in Serum or Plasma by ImmunoassayHepatitis B surface antigen Lab Routine Missed menses , unspecified gestational age Ordered: 10/02/2024[facility] HealthcareComment on above: Ordered: 10/02/2024Hepatitis C virus Ab [Presence] in Serum or Plasma by ImmunoassayHepatitis C antibody Lab Routine Missed menses , unspecified gestational age Ordered: 04/04/2024[facility] HealthcareComment on above:Ordered: 04/04/2024Hepatitis C virus Ab [Presence] in Serum or Plasma by Immunoassay Hepatitis C antibody Lab Routine Missed menses , unspecified gestational age Ordered: 10/02/2024[facility] HealthcareComment on above:Ordered: 10/02/2024HIV-1/HIV-2 antigen/antibody combination immunoassayHIV-1 and HIV-2 antibodies Lab Routine Missed menses , unspecified gestational age Ordered: 04/04/2024[facility] HealthcareComment on above:Ordered: 04/04/2024 HIV-1/HIV-2 antigen/antibody combination immunoassayHIV-1 and HIV-2 antibodies Lab Routine Missed menses , unspecified gestational age Ordered: 10/02/2024[facility] HealthcareComment on above:Ordered: 10/02/2024Neisseria gonorrhoeae DNA [Presence] in Unspecified specimen by LELO with probe detection Neisseria gonorrhea DNA probe, direct Lab Routine Vaginal bleeding Vaginal discharge Ordered: 06/23/2024[facility] HealthcareComment on above:Ordered: 06/23/2024 Neisseria gonorrhoeae DNA [Presence] in Unspecified specimen by LELO with probe detectionNeisseria gonorrhea DNA probe, direct Lab Routine Vaginal discharge Ordered: 11/20/2024[facility] HealthcareComment on above:Ordered: 11/20/2024Reagin Ab [Presence] in Serum by RPRRPR Lab Routine Missed menses , unspecified gestational age Ordered: 04/04/2024[facility] HealthcareComment on above:Ordered: 04/04/2024eagin Ab [Presence] in Serum by RPRRPR Lab Routine Missed menses , unspecified gestational age Ordered: 10/02/2024[facility] HealthcareComment on above:Ordered: 10/02/2024Rubella antibody, IgGRubella antibody, IgG Lab Routine Missed menses , unspecified gestational age Ordered: 04/04/2024 [facility] HealthcareComment on above:Ordered: 04/04/2024ubella antibody, IgGRubella antibody, IgG Lab Routine Missed menses , unspecified gestational age Ordered: 10/02/2024[facility] HealthcareComment on above:Ordered: 10/02/2024 SURESWAB(R) ADVANCED VAGINITIS PLUS, TMASURESWAB(R) ADVANCED VAGINITIS PLUS, TMA Pathology and Cytology Routine Vaginal bleeding Vaginal discharge Ordered: 06/23/2024[facility] Healthcare Work Phone: comment on above:Ordered: 06/23/2024SURESWAB(R) ADVANCED VAGINITIS PLUS, TMASURESWAB(R) ADVANCED VAGINITIS PLUS, TMA Pathology and Cytology Routine Vaginal discharge Ordered: 11/20/2024[facility] Work Phone: comment on above:Ordered: 11/20/2024Thyrotropin [Units/volume] in Serum or PlasmaTSH Lab Routine Hypothyroidism (acquired) ([facility]) Ordered: 04/04/2024[facility] HealthcareComment on above:Ordered: 04/04/2024 Thyrotropin [Units/volume] in Serum or PlasmaTSH Lab Routine History of thyroid disease Ordered: 06/02/2024[facility] Work Phone: Comment on above:Ordered: 06/02/2024Thyrotropin [Units/volume] in Serum or PlasmaTSH Lab Routine Thyroid disease ([facility]/HCC) Ordered: 10/02/2024[facility] HealthcareComment on above:Ordered: 10/02/2024 Thyrotropin [Units/volume] in Serum or PlasmaTSH Lab Routine Second trimester ([facility]) Thyroid disease Ordered: 12/11/2024[facility] Work Phone: Comment on above:Ordered: 12/11/2024UA DIP, URINE (POC)UA DIP, URINE (POC) Lab Routine Infective urethritis Ordered: 08/01/2021 [facility] Work Phone: Comment on above:Ordered: 08/01/2021Vitamin D 1,25 dihydroxyVitamin D 1,25 dihydroxy Lab Routine Low vitamin D level Ordered: 04/04/2024NOTN HealthcareComment on above:Ordered: 04/04/2024 End: 95-96-6765Qusxkcm D 25 hydroxyVitamin D 25 hydroxy Lab Routine Insulin controlled gestational diabetes mellitus (GDM) in second trimester 1 Occurrences starting 12/03/2024 until 12/03/2025[facility] Work Phone: comment on above:1 Occurrences starting 12/03/2024 until 12/03/2025[facility] Immunizations Immunization DateImmunizationNotesCare LbttnoaoUhtajven19-91-4687ujlhogorb virus vaccine, unspecified formulationKristofer Calix MD Work Phone: [facility] HospitalOlwusp55-62-7590gzmwsgc toxoid, reduced diphtheria toxoid, and acellular pertussis vaccine, adsorbedMa Sand Work Phone: [facility] HospitalNEGATED: Highlighted row has not occurred!78-71-8591wdbhxgpsz virus vaccine, unspecified formulationScomike CASAS [phone]-LzyslHolmes County [facility] Primary CareNEGATED: Highlighted row has not occurred!56-71-5178oeizhzdfn virus vaccine, unspecified formulationPERNELL LONGORIA [phone]-KgpgtCincinnati [facility] Payers DatePayer CategoryPayerPolicy [id number] 2021Medicaid [employer] MEDICAID [id number] 2020-Present [phone] [address] [place] [address] [id number] 2021Medicaid [id number] 2.16.840.1.607604.3.579.[id number] 2.16.840.1.086081.3.579.2.3[id number] 2.16.840.1.053259.3.579.2.98352-92-3767Dvqdtde1856764 2.16.840.1.910667.3.579.2.38731-06-7816Cxlslfj6873417 2.16.840.1.703834.3.579.2.20103-77-8354Ydhcjoo2408901 2.16.840.1.745327.3.579.2.96642-08-7367Uoomebb5740210 2.16.840.1.383120.3.579.2.97155-24-9729Sfuxljk1476917 2.16.840.1.849139.3.579.2.73593-17-2920Ivlulxi3965238 2.16.840.1.749899.3.579.2.28531-52-7857Panqcze2008687 2.16.840.1.091300.3.579.2.13271-58-9465Cslqmcw2177924 2.16.840.1.902203.3.579.2.22020-54-5001Tsqmghk5640005 2.16.840.1.854339.3.579.2.98918-45-2576Bbvqrvu8005427 2.16840.1.772138.3.579.2.67898-28-7174Aaufkmf8535522 2.16840.1.767235.3.579.2.33348-47-7222Lacevcn2312073 2.16840.1.494235.3.579.2.51040-46-9309Hpkgakp6295904 2.16840.1.351804.3.579.2.62709-95-0503Tnwiesd3100744 2.16840.1.281893.3.579.2.70365-62-0784Qmftgwh2736227 2.16840.1.731271.3.579.2.12201-88-4965Hrijdcb5164343 2.16840.1.307294.3.579.2.11118-99-6534Ytpidea7344023 2.16840.1.798888.3.579.2.19468-90-7101Eyisnoq9000881 2.16840.1.962454.3.579.2.97759-97-5730Evhelom4331999 2.16840.1.408831.3.579.2.97294-15-3219Retgnzh2195758 2.16840.1.315193.3.579.2.71315-84-4334Myuwsvg3600152 2.16840.1.255082.3.579.2.20088-44-7611Jrjxmgz1064748 2.16840.1.318797.3.579.2.14326-11-5241Ttkguuq4939763 2.16840.1.660453.3.579.2.94759-70-1166Ghsuyxq9576220 2.16.840.1.238980.3.579.2.49304-85-1348Taztdxf3746780 2.16840.1.701933.3.579.2.16833-76-9174Hmddfwc0085303 2.16840.1.779714.3.579.2.67175-01-8895Yedeabc37803466 2.840.1.367592.3.579.2.61143-05-6021Dtvdhhd19858300 2.840.1.710180.3.579.2.23005-38-0838Qrggxik31469273 2.0.1.432342.3.579.2.94425-13-1365Hzyrwze49338995 2.840.1.177698.3.579.2.30281-55-8786Ksalycd31442656 2.840.1.351461.3.579.2.18363-36-4599Ueyewfl57786819 2.840.1.536675.3.579.2.41807-45-6055Qgdnegs11240954 2.840.1.346996.3.579.2.74512-55-0972Qaokvoy67226533 2.840.1.882204.3.579.2.41486-77-9677Xutxwtr30230750 2.16840.1.182002.3.579.2.46391-36-4700Tsyujxx65062602 2.16840.1.865340.3.579.2.79910-72-0739Ovbyyhh41807938 2.16840.1.884021.3.579.2.50063-54-8122Ehnlyfg37933039 2.16840.1.197629.3.579.2.82959-23-7621Udlgvuf41481220 2.16840.1.164670.3.579.2.97243-85-5946Iamromm94683905 2.16840.1.524716.3.579.2.87999-25-1359Afavpnq13838186 2.0.1.856691.3.579.2.84075-05-6184Anpjhyq64275322 2.840.1.573437.3.579.2.66559-51-2578Yojxnpk02753964 2.0.1.310672.3.579.2.56711-46-6103Bnmzsea92388580 2.840.1.716684.3.579.2.54186-95-0026Svagobw80698369 2.0.1.272733.3.579.2.87021-16-6041Vyvdmvg57164660 2.0.1.933559.3.579.2.19166-47-9383Tiplfoj79616253 2.0.1.059710.3.579.2.68238-62-9238Mhdwopr61348398 2.840.1.474418.3.579.2.96102-75-8763Vkrcbzq81404434 2.0.1.098732.3.579.2.44032-47-9985Tjamxdi56272114 2.840.1.745437.3.579.2.49994-50-1893Atwhwcb96577687 2.840.1.995502.3.579.2.66784-34-8003Xlbyjfo21410778 2.16.840.1.703047.3.579.2.54749-78-8672Ergvzxf37785502 2.16.840.1.753801.3.579.2.35367-23-1414Pjhkjgk46965941 2.16840.1.335084.3.579.2.35703-85-4394Uuokypn84495160 2.16840.1.077015.3.579.2.18540-75-0178Atfvcyi05685370 2.16840.1.322253.3.579.2.08977-78-6817Uqixxwf50863835 2.16840.1.921767.3.579.2.30448-95-1261Wlmletv09754625 2.16840.1.642982.3.579.2.76327-94-9897Xqmduib80149853 2.16840.1.599320.3.579.2.06238-88-4251Qgpmpne05278123 2.16840.1.337435.3.579.2.71716-86-8066Edkpyfm99326066 2.16840.1.756047.3.579.2.43586-56-6399Kixjuls95125626 2.16840.1.078709.3.579.2.89669-85-6029Wedmojg38839741 2.16840.1.493361.3.579.2.22781-66-1159Ntlcnax81186949 2.16840.1.804551.3.579.2.38725-79-2653Whixojp46221236 2.16840.1.272820.3.579.2.85104-06-3217Ibnsorf95527951 2.16840.1.897990.3.579.2.64385-66-7872Mumrgqb30852366 2.840.1.259262.3.579.2.42207-07-4555Vxggwrp69774009 2.840.1.172890.3.579.2.77114-08-9454Dzpvblw96248157 2.0.1.271016.3.579.2.70117-21-8976Ycghnqh80520751 2.0.1.153293.3.579.2.26327-16-2806Fhtzrud920187425 2.840.1.875526.3.579.2.047267-91-8507Yorvimc205282048 2.0.1.703766.3.579.2.394560-60-6640Sjbajih453632108 2.0.1.741939.3.579.2.252681-69-0097Doaubov31176809 2.0.1.207717.3.579.2.26264-84-5612Xabqvqj388888392 2.0.1.332339.3.579.2.808877-86-0625Yagvazk317426125 2.0.1.913384.3.579.2.034139-00-2941Zidmetw345152449 2.840.1.922483.3.579.2.052704-67-2051Yspiqtb593749358 2.0.1.243889.3.579.2.472004-48-3617Dwgcdex021169999 2.840.1.772609.3.579.2.083135-38-0207Xifftxg204106935 2.840.1.120789.3.579.2.840045-45-5473Lrzuoly669720742 2.16.840.1.562577.3.579.2.465251-87-0186Wvntemn39871190 2.16.840.1.916282.3.579.2.694915-35-7613Dypetun65809713 2.16840.1.191677.3.579.2.419546-53-4564Ejmozwl63528599 2.16840.1.336612.3.579.2.810285-36-1959Imlspcs65127736 2.16840.1.205834.3.579.2.179235-02-0931Omizfsq94778384 2.16840.1.644722.3.579.2.271098-92-9910Cdfjhsf43467491 2.0.1.664774.3.579.2.259426-20-8435Trtcxoz04644729 2.16840.1.857521.3.579.2.727839-16-6669Bkdhxcp43508924 2.16840.1.657773.3.579.2.594456-41-5016Oqidgzi65551581 2.16840.1.049249.3.579.2.598561-73-6854Rxtacld36592652 2.16840.1.140230.3.579.2.676528-95-5234Jezxeqy3834974 2.16840.1.510812.3.579.2.329657-15-2414Suxiogw5816911 2.16840.1.531715.3.579.2.968779-33-3721Zxivxnm2248160 2.16840.1.036306.3.579.2.835362-36-7660Pijqnbn3289811 2.16.840.1.511752.3.579.2.422653-80-1168Pkbgnry2018727 2.16.840.1.062550.3.579.2.927490-71-3943Cgtjkcn2177255 2.16.840.1.180823.3.579.2.787903-21-1017Btxu-sdl68-39-5303KelskmtE7505547113 57-39-1410Bmjprca25890136763 1.2.840.625890.1.13.239.2.7.3.002448.315Unknown 0426163 2.16.840.1.322298.3.579.2.593 Social History DateTypeDetailFacilityStart: 09-10-2017 End: 79-40-5281Qwfypir smoking status NHISNever smoked tobaccoR[facility]ide [facility] Hospital Start: 09-10-2017 End: 47-98-6179Rshqfdl use and exposureSmokeless tobacco non-userCoshocton Regional Medical Centertart: 08-01-2021 End: 54-97-6461Ijysfvp intakeCurrent non-drinker of alcohol (finding)[facility] Centertart: 60-65-8128Sec Assigned At BirthNot on fileCoshocton Regional Medical Centertart: 07-22-2021 End: 08-21-8473Dygitzro to SARS-CoV-2 (event)Not sureCoshocton Regional Medical Centertart: 05-28-2017 End: 72-73-6348Evmwnno smoking statusNeverCincinnati Children'[facility] Start: 07-27-2022 End: 06-59-0188Mjp Assigned At BirthFemalKindred Healthcare Start: 11-21-2021 End: 25-18-0349Oclhjgp intakeEx-drinker (finding)[facility] I Do Now I Don't Phone: start: 78-69-8455Wfprxbn SDOH Alcohol Comment occasionallyBON [employer] Work Phone: start: 04-12-8035CzdbgtbmVXO [facility] Work Phone: start: 07-27-2022 End: 30-35-8618Utjoejc of Social functionCoshocton Regional Medical Centertart: 04-04-2024 End: 29-44-2214Ndcrfftrv beverage intakeLifetime non-drinker (finding)[facility] smoking status NHISUnknown if ever smokedKettering Health [facility] Work Phone: Start: 11-27-2018 End: 50-91-8164SugBhttdh (finding)[facility] Hospitaltart: 88-05-3161Qiv Assigned At [facility]rientationL[facility] Medical Equipment Procedure CodeEquipment CodeEquipment Original TextEquipment IdentifierDates [id number]: 10-30-2024 End: each by In Vitro route Daily Use to check FSBS four times daily [id number]: 10-30-2024 End: 25-56-7741Sgx a new needle with each injection ( 1- 5 times per day) [id number]: 12-03-2024 Functional Status AflkHxzhunpfblDlhmhiGcxtuvqv51-22-3226Wvhmgxw Health Questionnaire 2 item (PHQ- 2) [Reported][facility]'sNbhvvwiojr67-47-7029Kmfenpp Health Questionnaire 2 item (PHQ- 2) [Reported][facility] John'sUjkcdflokt77-60-4396Bckyshmcet StatusN/[facility]02-20-2025Functional StatusN/[facility] Ttetz52-30-9180Spamwdatwx StatusN/[facility] Primary Qicp40-75-7592Ghvapiturw StatusN/[facility]10-05-2024Functional StatusN/[facility] 08-11-3949Jqkkzsrsvx StatusN/[facility]06-25-2024 Functional StatusN/[facility]05-31-2024Functional StatusN/[facility] Oaec47-22-6312Qwchjwnbtz Status N/[facility] Primary Jizj41-83-6087Zsythqbqrw StatusN/[facility] Primary Kotq32-61-6250Utbvhzmvdq StatusN/[facility] Primary Kzeq82-41-0809Twjrtjoyfw StatusN/[facility] Clinical Notes 07-26-2019 to 03-02-2025 Note Date & GbmuUpfuRgywakxi78-63-1867 NoteHNO ID: [id number] Author: KATHERINE NEGRETE APRN.[employer] Service: ? Author Type: Nurse Practitioner Type: Progress Notes Filed: 03/02/2025 20:18 Note Text: NAME: Sanna Rendon CLINIC NO.: [id number] DATE OF SERVICE: March 02, 2025 (Penelope) [...] later in 2018. These were found in [place], [place]. I don't have access to these [...] workup. After discussion with her neurologist, Dr. Joreg Monge, we put her on prophylactic dose Lovenox throughout her prior but is now again and at 25 weeks. Had difficulty with associated diabetes. Recalls having had a target-like rash shortly before presenting to [facility] in 2016 with headaches and was [...] SUMMARIZED PLAN OF CARE: Continue Lovenox Saw PHYSICIST CRYOGENICS and patient increased Lovenox to 40 mg [...] She has a h (more content not included)...[facility]10-27-2025 History of Present illness Narrative* Rosi Murray, [...] Diagnosis Date Noted 32 weeks gestation of ([facility]) 11/28/2019 Abdominal pain 06/12/2023 Acute bronchitis due to infection 06/12/2023 Acute on chronic vesicular eczema of hands and feet 11/15/2023 Anemia complicating childbirth ([facility]) 01/16/2020 Anticoagulant long-term use 02/22/2020 Antiphospholipid antibody positive 09/10/2017 Antiphospholipid antibody syndrome ([facility]) 07/07/2019 Anxiety 06/12/2023 Blood pressure elevated without history of HTN 11/15/2023 BMI 37.0-37.9, adult 11/15/2023 Cerebral infarction, unspecified ([facility]) 05/16/2019 Cerebrovascular accident (CVA) due to stenosis of middle cerebral artery ([facility]) 02/22/2020 Cervicalgia 02/05/2019 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 ([facility]) 01/08/2020 Coagulation defect, unspecified ([facility]) 02/05/2019 Cold intolerance 11/15/2023 Deficiency of other specified B group vitamins 05/16/2019 Deviated septum 11/15/2023 Dizziness and giddiness 02/05/2019 Dry mouth 11/15/2023 Dysfunction of eustachian tube 06/12/2023 Dyspnea 06/12/2023 Elevated blood pressure reading 11/15/2023 Encounter for supervision of normal , unspecified, first trimester ([facility]) 05/29/2019 Environmental allergies 11/15/2023 Fatigue 12/29/2016 First degree perineal laceration during delivery ([facility]) 01/16/2020 Frequency of micturition 02/19/2019 Genitourinary symptoms 08/19/2021 Gestational diabetes mellitus (GDM), antepartum ([facility]) 01/26/2022 H/O: hypothyroidism 11/15/2023 Hematochezia 06/12/2023 History [...] anemia 01/16/2020 Irregular uterine bleeding 11/15/2023 problem ([facility]) 06/12/2023 Less than 8 weeks gestation of ([facility]) 06/05/2019 pearl hand (current) use of 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/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 02/05/2019 Migraine without aura and without status migrainosus, not intractable 09/12/2017 Morbid obesity ([facility]) 11/15/2023 Muscle fasciculation 08/19/2021 Nasal polyps 11/15/2023 Non-smoker 11/15/2023 NEETA (obstructive sleep apnea) 11/15/2023 Other acute postprocedural pain 02/03/2019 Other general symptoms and signs 10/28/2019 Other immediate hemorrhage ([facility]) 01/16/2020 Other specified noninflammatory disorders of vagina 02/21/2019 Pain in joint 12/29/2016 Palpitations 08/26/2019 Paresthesia of bilateral legs 11/15/2023 Pelvic and perineal pain 02/01/2019 Personal history of urinary (tract) infections 01/16/2020 Pre-diabetes 11/15/2023 Primary hypercoagulable state ([facility]) 08/01/2022 Pruritus, unspecified 01/02/2020 Psychogenic hyperventilation 06/12/2023 Raised antibody titer 09/25/2017 Right lower quadrant pain 11/15/2023 Right otitis externa 11/15/2023 Salivary gland swelling 11/15/2023 Single live ([facility]) 01/15/2020 Snoring 11/15/2023 Speech and language deficit [...] drainage of cyst WISDOM TOOTH EXTRACTION 2007 [place] teeth REVIEW OF SYSTEMS Review of Systems: [...] nursing note reviewed. Exam conducted with a 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 present. Vitals: Estimated body mass index is 33.98 kg/m as calculated from the following: Height as of 11/19/23: 5' 6 . Weight as of this encounter: 210 lb 8 oz. BP: 116/72 Patient's last menstrual period was 07/28/2024. Assessment/Plan ICD-10-CM 1. Third trimester ([facility]) Z34.93 2. 30 weeks gestation of ([facility]) Z3A.30 POCT urinalysis dipstick manually [...] of: Wilton Herrmann DO documented in this encounterMercy Hospital St. John'sKqzxxcjmyj42-56-6548 History of Present illness Narrative* Sam Callahan MD MPH - 02/16/2025 1:45 PM EDT Images from the original note were not included. ADULT RHEUMATOLOGY CLINIC NOTE [id number] [address] Patient Name: Sanna Rendon Subjective Reason for [...] following with two outside specialists (Neurology at [facility] and Hematology at [facility]) for management of her [...] health issues unclear exact diagnoses Note from [facility] Provider (Dr. Noyola): Recent note from [...] age) multigravida 35+ Antiphospholipid syndrome Hypothyroid Stroke (CMS-HCC) Gestational diabetes mellitus (GDM) in second trimester [...] Anemia Antiphospholipid antibody syndrome Cerebral infarction, unspecified ([facility]) 05/16/2019 Hypothyroid Migraine without aura and without status migrainosus, not intractable 09/12/2017 Stroke ([facility]) 2016 reviewed. Social History Social History [...] weeks . She is currently following with [facility] for her , neurology through the [place] system, and hematology through [facility]. Based on extensive review [...] Immediate [1] DNA double-stranded (dsDNA) Abs by Crithijaime lucerica IFA Standing Status: Future Expiration Date: 02/16/2026 [...] notes to her other specialists including her [facility] physician, neurologist, and hematology provider Health Maintenance: -The patient should continue to follow with their PCP for age and risk factor appropriate cancer screening and immunizations. Follow-up: -4-6 weeks, video visit is OK Sam Callahan MD, MPH [facility] [address] [place] [address] Total jeus-gt-kzwf time was 55 minutes with more than [...] you for your understanding. documented in this encounterOhio[facility]10-14-2025 Miscellaneous Notes* Telephone Encounter - [...] in blood sugars weekly. documented in this encounterOhioHealth Grant Medical Center10-14-2025 Telephone encounter Note* Telephone Encounter [...] Continue to send in blood sugars weekly. [facility] Work Phone: [phone] History of Present illness Narrative* Rosi Rodriguezsaundra, SENIOR ELECTRONICS DESIGN ENGINEER - 02/09/2025 10:30 AM EDT Reason for Appointment: Patient ID: Sanna Rendon is a 39 y.o. female who presents for Routine Visit Patient presents today for Return OB appointment. MEDICATIONS Current Outpatient Medications Medication Instructions Alcohol Swabs (Alcohol Prep Pad) 70 % pads 1 Pad, Topical, Daily, Use four times daily to check FSBS. Blood Glucose Monitoring Suppl (D-Morizon Glucometer) w/Device kit 1 kit, Does not [...] Diagnosis Date Noted 32 weeks gestation of ([facility]) 11/28/2019 Abdominal pain 06/12/2023 Acute bronchitis due to infection 06/12/2023 Acute on chronic vesicular eczema of hands and feet 11/15/2023 Anemia complicating childbirth ([facility]) 01/16/2020 Anticoagulant long-term use 02/22/2020 Antiphospholipid antibody positive 09/10/2017 Antiphospholipid antibody syndrome ([facility]) 07/07/2019 Anxiety 06/12/2023 Blood pressure elevated without history of HTN 11/15/2023 BMI 37.0-37.9, adult 11/15/2023 Cerebral infarction, unspecified ([facility]) 05/16/2019 Cerebrovascular accident (CVA) due to stenosis of middle cerebral artery ([facility]) 02/22/2020 Cervicalgia 02/05/2019 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 ([facility]) 01/08/2020 Coagulation defect, unspecified ([facility]) 02/05/2019 Cold intolerance 11/15/2023 Deficiency of other specified B group vitamins 05/16/2019 Deviated septum 11/15/2023 Dizziness and giddiness 02/05/2019 Dry mouth 11/15/2023 Dysfunction of eustachian tube 06/12/2023 Dyspnea 06/12/2023 Elevated blood pressure reading 11/15/2023 Encounter for supervision of normal , unspecified, first trimester ([facility]) 05/29/2019 Environmental allergies 11/15/2023 Fatigue 12/29/2016 First degree perineal laceration during delivery ([facility]) 01/16/2020 Frequency of micturition 02/19/2019 Genitourinary symptoms 08/19/2021 Gestational diabetes mellitus (GDM), antepartum ([facility]) 01/26/2022 H/O: hypothyroidism 11/15/2023 Hematochezia 06/12/2023 History [...] anemia 01/16/2020 Irregular uterine bleeding 11/15/2023 problem ([facility]) 06/12/2023 Less than 8 weeks gestation of ([facility]) 06/05/2019 custodial (current) use of 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/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 02/05/2019 Migraine without aura and without status migrainosus, not intractable 09/12/2017 Morbid obesity ([facility]) 11/15/2023 Muscle fasciculation 08/19/2021 Nasal polyps 11/15/2023 Non-smoker 11/15/2023 NEETA (obstructive sleep apnea) 11/15/2023 Other acute postprocedural pain 02/03/2019 Other general symptoms and signs 10/28/2019 Other immediate hemorrhage ([facility]) 01/16/2020 Other specified noninflammatory disorders of vagina 02/21/2019 Pain in joint 12/29/2016 Palpitations 08/26/2019 Paresthesia of bilateral legs 11/15/2023 Pelvic and perineal pain 02/01/2019 Personal history of urinary (tract) infections 01/16/2020 Pre-diabetes 11/15/2023 Primary hypercoagulable state ([facility]) 08/01/2022 Pruritus, unspecified 01/02/2020 Psychogenic hyperventilation 06/12/2023 Raised antibody titer 09/25/2017 Right lower quadrant pain 11/15/2023 Right otitis externa 11/15/2023 Salivary gland swelling 11/15/2023 Single live ([facility]) 01/15/2020 Snoring 11/15/2023 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) 12/30/2019 Suspected severe acute respiratory syndrome coronavirus 2 (SARS-CoV-2) infection 06/12/2023 SVT (supraventricular tachycardia) ([facility]) 08/26/2019 Syncope and collapse 06/03/2018 [...] second trimester ([facility]) 01/05/2025 Thyroid disease 01/05/2025 Resolved Ambulatory Problems [...] drainage of cyst WISDOM TOOTH EXTRACTION 2007 [place] teeth REVIEW OF SYSTEMS Review of Systems: [...] nursing note reviewed. Exam conducted with a 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 present. Vitals: Estimated body mass index is 34.12 kg/m as calculated from the following: Height as of 11/19/23: 5' 6 . Weight as of this encounter: 211 lb 6.4 oz. BP: 124/76 Patient's last menstrual period was 07/28/2024. ASSESSMENT & PLAN ICD-10-CM 1. Third trimester ([facility]) Z34.93 2. 28 weeks gestation of ([facility]) Z3A.28 CBC and differential POCT urinalysis dipstick [...] givenorders and they were also faxed to [facility] and [facility] Scheduling. Patient to return to clinic in 2 weeks for routine OB appointment. Documented by Rosi Murray LPN on behalf of: Wilton Herrmann DO documented in this encounter[facility]. John'[id number] History of Present illness Narrative* Mukul Noyola MD - 02/06/2025 2:00 PM EDT Images from the original note were not included. Video Visit via Real-time Synchronous Audiovisual Provider Location: [facility] MAT[facility]- MEDICINE AT [address] [id number] Patient Location: Other Home Patient Location Youth Court Judge: None Video Visit Consent Statement: I discussed [...] that there are some limitations compared to [id number] evaluations. We elected to proceed. [facility] Maternal- Medicine Office Note Reason [...] will be undergoing genetic testing through the bone tender. There is family history of hypospadias and [...] Anemia Antiphospholipid antibody syndrome Cerebral infarction, unspecified ([facility]) 05/16/2019 Hypothyroid Migraine without aura and without status migrainosus, not intractable 09/12/2017 Stroke ([facility]) 2016 PSHIST: Past Surgical History: Procedure [...] to continue to send blood glucoses to [facility] to review - continue Lovenox 40 [...] planning. Further recommendations to be made by M as the progresses Plan reviewed with patient. She vocalized understanding all questions answered. The patient is to continue with routine care in your office Thank you for allowing me to participate in her care. Please contact me if you have any concerns. Mukul Noyola MD, FACOG (she/hers) Maternal- Medicine [facility] [address] [place], [place] [id number] This document was created with [employer] technology. Though I make every effort to review the dictation as it is transcribed, on occasion the spoken word can be misinterpreted by the technology leading to inappropriate words, phrases, or sentences. This note is addressed to the requesting provider as a consultation for clinical guidance. Specificmedical abbreviations are occasionally used and those are generally approved by the [place]?Board of?Obstetrics and?Gynecology?as well as?Elizabeth guzman abbreviations. The above plan of care was based solely on the diagnoses for which a consultation was requested. ?More frequent testing may be indicated based on her other medical/obstetrical conditions. The management of other or medical conditions is beyond the scope of requested consultation and will c ontinue to be followed by the primary hand spring repairer helper or primary care provider. Note to [...] opinion of the practitioner. documented in this encounterFirelands Regional Medical CenterYopima10-07-2025 NoteEchocardiology Procedure Exam Date/Time Accession # Ordering Echo Transthoracic 02/03/2025 10:00 EDT [id number] Wilton HERRMANN DO Complete CPT code 45110 32971 Reason for Exam (Echo Transthoracic Complete) Dizziness and giddiness E07.9, O09.522 R42 [address] [address] Adult Echocardiogram Report Name: SANNA RENDON Study Date: 02/03/2025 08:09 AM BP: 116/76 mmHg Patient Location: [facility] F HR: 84 : 1985 Gender: Female Height: 66 in Age: 39 yrs Ethnicity: [facility] Weight: 205 lb Reason For Study: Dizziness and giddiness E07.9, O09.522 R42 BSA: 2.0 m2 History: 27 weeks , Thyroid disease, Gestational diabetes, CVA Ordering Physician: Wilton HERRMANN Referring Physician: Wilton HERRMANN Performed By: Marry Peng, [facility] Interpretation Summary There is Trace mitral regurgitation. [...] Transcribed by: [facility] Technologist: [facility]09-22-2025 History of Present illness Narrative* Celia Keith, LOAD OUT WORKER - 01/19/2025 9:00 AM EDT Reason for [...] Diagnosis Date Noted 32 weeks gestation of ([facility]) 11/28/2019 Abdominal pain 06/12/2023 Acute bronchitis due to infection 06/12/2023 Acute on chronic vesicular eczema of hands and feet 11/15/2023 Anemia complicating childbirth ([facility]) 01/16/2020 Anticoagulant long-term use 02/22/2020 Antiphospholipid antibody positive 09/10/2017 Antiphospholipid antibody syndrome ([facility]) 07/07/2019 Anxiety 06/12/2023 Blood pressure elevated without history of HTN 11/15/2023 BMI 37.0-37.9, adult 11/15/2023 Cerebral infarction, unspecified ([facility]) 05/16/2019 Cerebrovascular accident (CVA) due to stenosis of middle cerebral artery ([facility]) 02/22/2020 Cervicalgia 02/05/2019 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 ([facility]) 01/08/2020 Coagulation defect, unspecified ([facility]) 02/05/2019 Cold intolerance 11/15/2023 Deficiency of other specified B group vitamins 05/16/2019 Deviated septum 11/15/2023 Dizziness and giddiness 02/05/2019 Dry mouth 11/15/2023 Dysfunction of eustachian tube 06/12/2023 Dyspnea 06/12/2023 Elevated blood pressure reading 11/15/2023 Encounter for supervision of normal , unspecified, first trimester ([facility]) 05/29/2019 Environmental allergies 11/15/2023 Fatigue 12/29/2016 First degree perineal laceration during delivery ([facility]) 01/16/2020 Frequency of micturition 02/19/2019 Genitourinary symptoms 08/19/2021 Gestational diabetes mellitus (GDM), antepartum ([facility]) 01/26/2022 H/O: hypothyroidism 11/15/2023 Hematochezia 06/12/2023 History [...] anemia 01/16/2020 Irregular uterine bleeding 11/15/2023 problem ([facility]) 06/12/2023 Less than 8 weeks gestation of ([facility]) 06/05/2019 custodial (current) use of 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/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 02/05/2019 Migraine without aura and without status migrainosus, not intractable 09/12/2017 Morbid obesity ([facility]) 11/15/2023 Muscle fasciculation 08/19/2021 Nasal polyps 11/15/2023 Non-smoker 11/15/2023 NEETA (obstructive sleep apnea) 11/15/2023 Other acute postprocedural pain 02/03/2019 Other general symptoms and signs 10/28/2019 Other immediate hemorrhage ([facility]) 01/16/2020 Other specified noninflammatory disorders of vagina 02/21/2019 Pain in joint 12/29/2016 Palpitations 08/26/2019 Paresthesia of bilateral legs 11/15/2023 Pelvic and perineal pain 02/01/2019 Personal history of urinary (tract) infections 01/16/2020 Pre-diabetes 11/15/2023 Primary hypercoagulable state ([facility]) 08/01/2022 Pruritus, unspecified 01/02/2020 Psychogenic hyperventilation 06/12/2023 Raised antibody titer 09/25/2017 Right lower quadrant pain 11/15/2023 Right otitis externa 11/15/2023 Salivary gland swelling 11/15/2023 Single live ([facility]) 01/15/2020 Snoring 11/15/2023 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) 12/30/2019 Suspected severe acute respiratory syndrome coronavirus 2 (SARS-CoV-2) infection 06/12/2023 SVT (supraventricular tachycardia) ([facility]) 08/26/2019 Syncope and collapse 06/03/2018 Other bacterial infections of unspecified site 06/27/2019 Thrombocytopenia, unspecified 11/20/2019 Hypoglycemia 06/12/2023 Unspecified condition associated with female genital organs and menstrual cycle 05/09/2019 Unspecified ovarian cyst, right side 02/06/2019 Urinary tract infection 10/16/2019 Referred otalgia of right ear 11/19/2023 LPRD (laryngopharyngeal reflux disease) 11/19/2023 H/O loss 01/05/2025 Multigravida of advanced maternal age in second trimester ([facility]) 01/05/2025 Thyroid disease 01/05/2025 Resolved Ambulatory Problems Diagnosis Date Noted No Resolved Ambulatory Problems Past Medical History: Diagnosis Date AMA (advanced maternal age) multigravida 35+ ([facility]) Anemia Antiphospholipid syndrome ([facility]) Gestational diabetes ([facility]) Heartburn Hypothyroid Stroke (HCC) HISTORY PAST MEDICAL HISTORY SOCIAL HISTORY Past Medical History: Diagnosis Date AMA (advanced maternal age) multigravida 35+ ([facility]) Anemia Antiphospholipid syndrome ([facility]) Gestational diabetes ([facility]) Heartburn Hypothyroid Stroke (HCC) Social [...] drainage of cyst WISDOM TOOTH EXTRACTION 2007 [place] teeth REVIEW OF SYSTEMS Review of Systems: [...] nursing note reviewed. Exam conducted with a 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 present. Vitals: Estimated body mass index is 34.14 kg/m as calculated from the following: Height as of 11/19/23: 5' 6 . Weight as of this encounter: 211 lb 8 oz. BP: 124/70 Patient's last menstrual period was 07/28/2024. ASSESSMENT & PLAN ICD-10-CM 1. Second trimester ([facility]) Z34.92 POCT urinalysis dipstick manually resulted 2. 25 weeks gestation of ([facility]) Z3A.25 3. Gestational diabetes mellitus (GDM), antepartum, gestational diabetes method of control unspecified ([facility]) O24.419 metFORMIN XR (Glucophage-XR) 500 MG 24 [...] to switch her Lovenox and Metformin to [facility] pharmacy. Growth ultrasound at28 weeks as well as NST and BPP at 28 weeks. Documented by Celia Keith NP on behalf of: Wilton Herrmann DO documented in this [facility]09-16-2025 History of Present illness Narrative* Roxana Mays [...] more likely to fail compared to insulin. custodial data on children whose mothers took oral [...] so she can have them done at [place] - Anatomy survey with MFM -followsup scheduled [...] scheduled - nephrology referral previously recommended- previous MFTai MD had sent referral to Dr Zimmerman - provided patient with their number to call - scheduled with rheumatology 02/16 Follow up in 3 weeks with Maternal- Medicine MD and US as scheduled . I asked her to keep sending values to us weekly by e-mail to: [email or web address] or by fax to: [phone] Roxana Mays PA-C Maternal- Medicine Office phone: [phone] Roxana Mays PA-C 01/13/25 1031 documented in this encounterOhioHealth [facility] Center09-16-2025 Miscellaneous Notes* Medical Student - [...] the legal medical record. documented in this encounterOhioHealth Grant Medical Center09-16-2025 Progress note* Medical Student - [...] a part of the legal medical record. [facility]09-12-20[facility] Miscellaneous Notes* Telephone Encounter - [...] answered. MUKUL NOYOLA MD documented in this encounterOhioHealth Grant Medical Center09-12-2025 Telephone encounter Note* Telephone Encounter [...] questions and concerns answered. MUKUL NOYOLA MD [facility] Hiptype [id number] Miscellaneous Notes* Telephone Encounter - Jacque Pat RN - 01/07/2025 10:29 AM EDT Certified Professional Coder called and spoke to patient yesterday to discuss a several topics. Certified Professional Coder asked if patient wanted another follow up cervical length. Patient declined. We also discussed her insulin dosage. Patient had not started her NPH insulin yet because her pharmacy did not notify her it was ready for pickup. She asked if she could start at 4 units instead of 8. She is worried because she had a bad reaction when she took Lantus previously. Certified Professional Coder discussed this with Dr. Noyola and she is okay with her starting at a lower dose for now. Lastly, selling underwriter notified patient that Dr. Noyola wanted to discuss with her title specialist her Lovenox dosing. Patient stated there was some confusion if she should be on 40mg or 80mg, patient prefers to be on the lower dose. Patient is seeing a Dr. Calix from the [facility] hematology office in [place]. Notified patient that we will reach out to her title specialist to discuss her dosing. documented in this encounterNorwalk [facility] Hospital AUPEO![id number] Telephone encounter Note* Telephone Encounter - Jacque Pat RN - 01/07/2025 10:29 AM EDT Certified Professional Coder called and spoke to patient yesterday to discuss a several topics. Certified Professional Coder asked if patient wanted another follow up cervical length. Patient declined. We also discussed her insulin dosage. Patient had not started her NPH insulin yet because her pharmacy did not notify her it was ready for pickup. She asked if she could start at 4 units instead of 8. She is worried because she had a bad reaction when she took Lantus previously. Certified Professional Coder discussed this with Dr. Noyola and she is okay with her starting at a lower dose for now. Lastly, selling underwriter notified patient that Dr. Noyola wanted to discuss with her title specialist her Lovenox dosing. Patient stated there was some confusion if she should be on 40mg or 80mg, patient prefers to be on the lower dose. Patient is seeing a Dr. Calix from the [facility] hematology office in [place]. Notified patient that we will reach out to her title specialist to discuss her dosing. [facility] AUPEO![id number] History of Present illness Narrative* Rosi Murray, SENIOR ELECTRONICS DESIGN ENGINEER - 01/05/2025 2:40 PM EDT Reason for Appointment: Patient ID: Sanna Rendon is a 39 y.o. female who presents for Routine Visit Patient presents today for Return OB appointment. MEDICATIONS Current Outpatient Medications Medication Instructions Alcohol Swabs (Alcohol Prep Pad) 70 % pads 1 Pad, Topical, Daily, Use four times daily to check FSBS. Blood Glucose Monitoring Suppl (D-Morizon Glucometer) w/Device kit 1 kit, Does not [...] Diagnosis Date Noted 32 weeks gestation of ([facility]) 11/28/2019 Abdominal pain 06/12/2023 Acute bronchitis due to infection 06/12/2023 Acute on chronic vesicular eczema of hands and feet 11/15/2023 Anemia complicating childbirth ([facility]) 01/16/2020 Anticoagulant long-term use 02/22/2020 Antiphospholipid antibody positive 09/10/2017 Antiphospholipid antibody syndrome ([facility]) 07/07/2019 Anxiety 06/12/2023 Blood pressure elevated without history of HTN 11/15/2023 BMI 37.0-37.9, adult 11/15/2023 Cerebral infarction, unspecified ([facility]) 05/16/2019 Cerebrovascular accident (CVA) due to stenosis of middle cerebral artery ([facility]) 02/22/2020 Cervicalgia 02/05/2019 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 ([facility]) 01/08/2020 Coagulation defect, unspecified ([facility]) 02/05/2019 Cold intolerance 11/15/2023 Deficiency of other specified B group vitamins 05/16/2019 Deviated septum 11/15/2023 Dizziness and giddiness 02/05/2019 Dry mouth 11/15/2023 Dysfunction of eustachian tube 06/12/2023 Dyspnea 06/12/2023 Elevated blood pressure reading 11/15/2023 Encounter for supervision of normal , unspecified, first trimester ([facility]) 05/29/2019 Environmental allergies 11/15/2023 Fatigue 12/29/2016 First degree perineal laceration during delivery ([facility]) 01/16/2020 Frequency of micturition 02/19/2019 Genitourinary symptoms 08/19/2021 Gestational diabetes mellitus (GDM), antepartum ([facility]) 01/26/2022 H/O: hypothyroidism 11/15/2023 Hematochezia 06/12/2023 History [...] anemia 01/16/2020 Irregular uterine bleeding 11/15/2023 problem ([facility]) 06/12/2023 Less than 8 weeks gestation of ([facility]) 06/05/2019 pearl hand (current) use of 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/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 02/05/2019 Migraine without aura and without status migrainosus, not intractable 09/12/2017 Morbid obesity ([facility]) 11/15/2023 Muscle fasciculation 08/19/2021 Nasal polyps 11/15/2023 Non-smoker 11/15/2023 NEETA (obstructive sleep apnea) 11/15/2023 Other acute postprocedural pain 02/03/2019 Other general symptoms and signs 10/28/2019 Other immediate hemorrhage ([facility]) 01/16/2020 Other specified noninflammatory disorders of vagina 02/21/2019 Pain in joint 12/29/2016 Palpitations 08/26/2019 Paresthesia of bilateral legs 11/15/2023 Pelvic and perineal pain 02/01/2019 Personal history of urinary (tract) infections 01/16/2020 Pre-diabetes 11/15/2023 Primary hypercoagulable state ([facility]) 08/01/2022 Pruritus, unspecified 01/02/2020 Psychogenic hyperventilation 06/12/2023 Raised antibody titer 09/25/2017 Right lower quadrant pain 11/15/2023 Right otitis externa 11/15/2023 Salivary gland swelling 11/15/2023 Single live ([facility]) 01/15/2020 Snoring 11/15/2023 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) 12/30/2019 Suspected severe acute respiratory syndrome coronavirus 2 (SARS-CoV-2) infection 06/12/2023 SVT (supraventricular tachycardia) ([facility]) 08/26/2019 Syncope and collapse 06/03/2018 Other bacterial infections of unspecified site 06/27/2019 Thrombocytopenia, unspecified 11/20/2019 Hypoglycemia 06/12/2023 Unspecified condition associated with female genital organs and menstrual cycle 05/09/2019 Unspecified ovarian cyst, right side 02/06/2019 Urinary tract infection 10/16/2019 Referred otalgia of right ear 11/19/2023 LPRD (laryngopharyngeal reflux disease) 11/19/2023 H/O loss 01/05/2025 Multigravida of advanced maternal age in second trimester ([facility]) 01/05/2025 Thyroid disease 01/05/2025 Resolved Ambulatory Problems Diagnosis Date Noted No Resolved Ambulatory Problems Past Medical History: Diagnosis Date AMA (advanced maternal age) multigravida 35+ ([facility]) Anemia Antiphospholipid syndrome ([facility]) Gestational diabetes ([facility]) Heartburn Hypothyroid Stroke ([facility]) HISTORY PAST MEDICAL HISTORY SOCIAL HISTORY Past Medical History: Diagnosis Date AMA (advanced maternal age) multigravida 35+ ([facility]) Anemia Antiphospholipid syndrome ([facility]) Gestational diabetes ([facility]) Heartburn Hypothyroid Stroke ([facility]) Social History Tobacco Use Smoking [...] drainage of cyst WISDOM TOOTH EXTRACTION 2007 [place] teeth REVIEW OF SYSTEMS Review of Systems: [...] nursing note reviewed. Exam conducted with a 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 present. Vitals: Estimated body mass index is 33.73 kg/m as calculated from the following: Height as of 11/19/23: 5' 6 . Weight as of this encounter: 209 lb. BP: 122/74 Patient's last menstrual period was 07/28/2024. ASSESSMENT & PLAN ICD-10-CM 1. Second trimester ([facility]) Z34.92 POCT urinalysis dipstick manually resulted 2. 23 weeks gestation of ([facility]) Z3A.23 3. Thyroid disease E07.9 Echocardiogram 2D complete ECG 12 lead unit performed Echocardiogram 2D complete 4. Gestational diabetes mellitus (GDM), antepartum, gestational diabetes method of control unspecified ([facility]) O24.419 Echocardiogram 2D complete ECG 12 lead unit performed Echocardiogram 2D complete 5. Multigravida of advanced maternal age in second trimester ([facility]) O09.522 Echocardiogram 2D complete ECG 12 lead [...] of: Wilton Herrmann DO documented in this encounterMercy Hospital St. John'[id number] History of Present illness Narrative* Jacque Pat RN - 01/05/2025 10:20 AM EDT NPH insulin prior authorization approved. Confirmed via telephone call with automated voice messaging system. Prior authorization number #[id number] documented in this encounterOhioHealth Grant Medical Center09-04-2025 History of Present illness Narrative* Mukul Noyola MD - 01/01/2025 2:30 PM EDT Images from the original note were not included. Video Visit via Real-time Synchronous Audiovisual Provider Location: [facility]- [facility] AT [facility] [address] [facility] [id number] Patient Location: Other En[employer] Office Patient Location Youth Court Judge: None Video Visit Consent Statement: I discussed [...] that there are some limitations compared to [id number] evaluations. We elected to proceed. [facility] Maternal- Medicine Consult Note Reason [...] will be undergoing genetic testing through the bone tender. There is family history of hypospadias and [...] Anemia Antiphospholipid antibody syndrome Cerebral infarction, unspecified ([facility]) 05/16/2019 Hypothyroid Migraine without aura and without status migrainosus, not intractable 09/12/2017 Stroke ([facility]) 2016 PSHIST: Past Surgical History: Procedure [...] contrast; Future - [facility] [place], [place]; Future 2. Antiphospholipid syndrome complicating , antepartum - Echo complete W/O contrast; Future - [facility] [place], [place]; Future 3. History of stroke 4. [...] intermittent symptoms concerning for an autoimmune condition [id number]. I recommended she sees a kraft digester operator. Referral given. I asked her to hold [...] supposed to undergo genetic testing with her bone tender. After the patient left I found that [...] asymptomatic I recommend that she sees a band sawing machine operator and she desires referral locally. Recommendations: - increase metformin to 1500 mg at night - she is willing to try the NPH 8 units at night - to continue to send blood glucoses to [facility] to review - follow-up survey and [...] Mukul Noyola MD, FACOG (she/hers) Maternal- Medicine [facility] [address] [facility] [address] [place] [address] This document was created with [employer] technology. Though I make every effort to review the dictation as it is transcribed, on occasion the spoken word can be misinterpreted by the technology leading to inappropriate words, phrases, or sentences. This note is addressed to the requesting provider as a consultation for clinical guidance. Specificmedical abbreviations are occasionally used and those are generally approved by the [place]?Board of?Obstetrics and?Gynecology?as well as?[place] s abbreviations. The above plan of care was based solely on the diagnoses for which a consultation was requested. ?More frequent testing may be indicated based on her other medical/obstetrical conditions. The management of other or medical conditions is beyond the scope of requested consultation and will c ontinue to be followed by the primary hand spring repairer helper or primary care provider. Note to [...] male Have you been seen here at [facility] in a previous ? yes Recent ER visits or hospitalizations? Seen in L&D for cramping about 2 weeks ago Bring blood sugar log or meter with you today? (Please bring them with you for every visit at [facility]) scanned to media tab Flu vaccine (Feb-June)? no Any concerns that you would like me to mention to the provider today? No concerns documented in this encounterOhioHealth Grant Medical Center08-29-2025 Miscellaneous Notes* Telephone Encounter - Stephanie QuirosPRISCILLA - 12/26/2024 10:56 AM EDT Called patient [...] and basics of CGM explained. Will send comScore message with instructions on how to connect to our [facility] account. Explained how to prudence notes on the Jenifer kennedy for fasting BG and meals. documented in this encounterNortheastern Vermont Regional HospitalThumbs Up08-29-2025 Telephone encounter Note* Telephone Encounter - PRISCILLA [...] and basics of CGM explained. Will send comScore message with instructions on how to connect to our [facility] account. Explained how to prudence notes on the Jenifer kennedy for fasting BG and meals. [facility]riends[facility]AT[facility]-26-2025 NoteHNO ID: [id number] Author: KATHERINE NEGRETE APRN.[employer]ODU[employer] M[employer]DER Service: ? Author Type: Nurse Practitioner Type: Progress Notes Filed: 12/24/2024 21:07 Note Text: NAME: Sanna Rendon [facility] NO.: [id number] DATE OF SERVICE: December 23, 2024 (Penelope) [...] later in 2018. These were found in [place], [place]. I don't have access to these [...] a target-like rash shortly before presenting to [facility] in 2015 with headaches and was [...] g/dL, and platelets a (more content not included)...[facility]08-26-2025 History of Present illness Narrative* Penelope VICTOR HUGO Murphy.TOILET PRODUCTS MOLDER - 12/23/2024 11:50 AM EDT Images from the original note were not included. NAME: Sanna Rendon CLINIC NO.: [id number] DATE OF SERVICE: December 23, 2024 (Penelope) [...] later in 2018. These were found in [place], [place]. I don't have access to these [...] a target-like rash shortly before presenting to [facility] in 2016 with headaches and was [...] Monge soon. When she hada stroke in [place], she had symptoms up to a month before: uncontrollable headache, BP was elevated, knee stiffness, and blurry vision. Right facial drooping and difficulty speaking [facility] She continues to take vitamins. Updated [...] and stayed on Lovenox Hgb 13.1 [place] [facility] [place] if persisting bleeding but she [...] and at age 69. Both lived in [facility] but she was adopted. She was not able to see ID in October and will be seeing Dr. Baugh next week. Also will have her see Dr. Hamlin for her clotting disorder and make any other recommendations to optimize her treatment. Updated Visit, October 08, 2020: Telephone only Received call from pt stating she was seen in [facility] for numbness in her chest, throat, and extremities, and sob which has been worsening over the last week. We arranged a telephone visit for her toreview questions with me. Sanna Rendon is a 34 year old female seen for Hypercoagulable state and recent concerns and symptoms that required her to be seen at [facility]. She went to the ER with Gradual worsening of breathing after progressive tingling of fingers and legs. She currently remains very fatigued even though she is sleeping well. Now recalls that before her stroke she remembers having a bull's eye rash and was seen with severe headaches in [facility] was found to have a [...] a root canal and was sent to [facility] for MRI which was negative but non-contrasted. [...] history goes back to January [address] [facility] where she had persisting headaches and slurred speech followed by lower extremity weakness. This took a few months to resolve and she is back to her normal state of being but some point in time during her her next she was seen by Dr. Humera Hyde in [place] as well and was found to have [...] which included preparing to see the patient, [id number] patient care, completing clinical documentation, obtaining and/or reviewing separately obtained history, performing a medically appropriate examination, counseling and educating the pat ient/family/caregiver, ordering medications, tests, or procedures, independently interpreting results (not separately reported), and communicating results to the patient/family/caregiver. Katherine Negrete APRN.CNP Hematology and Oncology Services Provided at: [place], [place] CC: MD Wilton Day, [address] [place] [address] Humaira Gaviria MD [address] [place] [id number] MD Cosmo Kingston MD Michael Blank, MD documented in this encounterRiverside [facility]08-20-2025 History of Present illness Narrative* BRENNEN Guillen - 12/17/2024 3:30 PM EDT REASON FOR OFFICE VISIT: Video Visit via Real-time Synchronous Audiovisual Provider Location: [facility]ICINE AT [address] [address] Patient Location: Patient's home Video [...] that there are some limitations compared to [id number] evaluations. The patient consented to the presence [...] TSH 1.25 10/28/2024 No results found for: [id number] No results found for: CREATININE , BUN [...] values to us weekly by e-mail to: [email or web address] or by fax to: [phone] TIME OF CONSULTATION: 45 minutes with the patient, >50% in discussion and counseling, coordination of care which was [id number], review of records and communication back to referring provider. BRENNEN Guillen 12/17/24 1619 documented in this encounterOhioHealth [facility]08-15-2025 Miscellaneous Notes* Telephone Encounter - [...] 12/17/2024. Sanna verbalized understanding. documented in this encounterOhioHealth Grant Medical Center08-15-2025 Telephone encounter Note* Telephone Encounter [...] Alisa Saba APRN 12/17/2024. Sanna verbalized understanding. [facility] [employer] Work Phone: [phone]) 968-767508-15-2025 Miscellaneous Notes* Telephone Encounter - PRISCILLA Sutherland [...] tried higher fiber snacks in the evening. Certified Professional Coder told her that I would relay her concerns to [facility] physician and get back to her. Obtained blood sugars for this week and will scan them into her chart. documented in this encounterOhioHealth Grant Medical Center08-15-2025 Telephone encounter Note* Telephone Encounter [...] tried higher fiber snacks in the evening. Certified Professional Coder told her that I would relay her concerns to [facility] physician and get back to her. Obtained blood sugars for this week and will scan them into her chart. [facility] Work Phone: [phone]) 277-983608-14-2025 History of Present illness Narrative* Rosi Murray [...] Diagnosis Date Noted 32 weeks gestation of ([facility]) 11/28/2019 Abdominal pain 06/12/2023 Acute bronchitis due to infection 06/12/2023 Acute on chronic vesicular eczema of hands and feet 11/15/2023 Anemia complicating childbirth ([facility]) 01/16/2020 Anticoagulant long-term use 02/22/2020 Antiphospholipid antibody positive 09/10/2017 Antiphospholipid antibody syndrome ([facility]) 07/07/2019 Anxiety 06/12/2023 Blood pressure elevated without history of HTN 11/15/2023 BMI 37.0-37.9, adult 11/15/2023 Cerebral infarction, unspecified ([facility]) 05/16/2019 Cerebrovascular accident (CVA) due to stenosis of middle cerebral artery ([facility]) 02/22/2020 Cervicalgia 02/05/2019 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 ([facility]) 01/08/2020 Coagulation defect, unspecified ([facility]) 02/05/2019 Cold intolerance 11/15/2023 Deficiency of other specified B group vitamins 05/16/2019 Deviated septum 11/15/2023 Dizziness and giddiness 02/05/2019 Dry mouth 11/15/2023 Dysfunction of eustachian tube 06/12/2023 Dyspnea 06/12/2023 Elevated blood pressure reading 11/15/2023 Encounter for supervision of normal , unspecified, first trimester ([facility]) 05/29/2019 Environmental allergies 11/15/2023 Fatigue 12/29/2016 First degree perineal laceration during delivery ([facility]) 01/16/2020 Frequency of micturition 02/19/2019 Genitourinary symptoms 08/19/2021 Gestational diabetes mellitus (GDM) affecting ([facility]) 01/26/2022 H/O: hypothyroidism 11/15/2023 Hematochezia 06/12/2023 History [...] anemia 01/16/2020 Irregular uterine bleeding 11/15/2023 problem ([facility]) 06/12/2023 Less than 8 weeks gestation of ([facility]) 06/05/2019 pearl hand (current) use of 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/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 02/05/2019 Migraine without aura and without status migrainosus, not intractable 09/12/2017 Morbid obesity ([facility]) 11/15/2023 Muscle fasciculation 08/19/2021 Nasal polyps 11/15/2023 Non-smoker 11/15/2023 NEETA (obstructive sleep apnea) 11/15/2023 Other acute postprocedural pain 02/03/2019 Other general symptoms and signs 10/28/2019 Other immediate hemorrhage ([facility]) 01/16/2020 Other specified noninflammatory disorders of vagina 02/21/2019 Pain in joint 12/29/2016 Palpitations 08/26/2019 Paresthesia of bilateral legs 11/15/2023 Pelvic and perineal pain 02/01/2019 Personal history of urinary (tract) infections 01/16/2020 Pre-diabetes 11/15/2023 Primary hypercoagulable state ([facility]) 08/01/2022 Pruritus, unspecified 01/02/2020 Psychogenic hyperventilation 06/12/2023 Raised antibody titer 09/25/2017 Right lower quadrant pain 11/15/2023 Right otitis externa 11/15/2023 Salivary gland swelling 11/15/2023 Single live ([facility]) 01/15/2020 Snoring 11/15/2023 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) 12/30/2019 Suspected severe acute respiratory syndrome coronavirus 2 (SARS-CoV-2) infection 06/12/2023 SVT (supraventricular tachycardia) ([facility]) 08/26/2019 Syncope and collapse 06/03/2018 [...] ([facility]) Anemia Antiphospholipid syndrome ([facility]) Gestational diabetes ([facility]) Heartburn Hypothyroid Stroke (HCC) HISTORY PAST MEDICAL HISTORY SOCIAL HISTORY Past Medical History: Diagnosis Date AMA (advanced maternal age) multigravida 35+ ([facility]) Anemia Antiphospholipid syndrome ([facility]) Gestational diabetes ([facility]) Heartburn Hypothyroid Stroke (HCC) Social History Tobacco [...] drainage of cyst WISDOM TOOTH EXTRACTION 2007 [place] teeth REVIEW OF SYSTEMS Review of Systems: [...] nursing note reviewed. Exam conducted with a 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 present. Vitals: Estimated body mass index is 33.41 kg/m as calculated from the following: Height as of 11/19/23: 5' 6 . Weight as of this encounter: 207 lb. BP: 120/70 Patient's last menstrual period was 07/28/2024. ASSESSMENT & PLAN ICD-10-CM 1. 19 weeks gestation of ([facility]) Z3A.19 POCT urinalysis dipstick manually resulted 2. Second trimester ([facility]) Z34.92 POCT urinalysis dipstick manually resulted 3. Thyroid disease E07.9 4. Multigravida of advanced maternal age in second trimester ([facility]) O09.522 5. Gestational diabetes mellitus (GDM), antepartum, gestational diabetes method of control unspecified ([facility]) O24.419 Patient presents today for a routine [...] OB care. Patient will continue to utilize [facility] for blood sugar management. Patient is scheduled with [facility] on 01/01/25 for scan and Telemedicine with M provider in [place]. Documented by Rosi Murray LPN on behalf of: Wilton Herrmann DO documented in this encounterMercy Hospital St. John'[id number] Miscellaneous Notes* Telephone Encounter - Anni Abreu CMA - 12/03/2024 3:01 PM EDT Left message with patient to call our office to schedule her next appt in 2 week with an LOAD OUT WORKER/PA. Left call back number and to press option 3 for scheduling. documented in this encounterOhioHealth Grant Medical Center08-06-2025 Telephone encounter Note* Telephone Encounter - Anni Abreu CMA - 12/03/2024 3:01 PM EDT Left message with patient to call our office to schedule her next appt in 2 week with an LOAD OUT WORKER/PA. Left call back number and to press option 3 for scheduling. [facility]08-06-[facility] History of Present illness Narrative* Alisa Saba APRN-TOR - 12/03/2024 2:00 PM EDT REASON FOR [...] starting insulin. She is being followed at [facility] due to GDMA2. States she is [...] TSH 1.25 10/28/2024 No results found for: [id number] No results found for: CREATININE , BUN [...] baby. Little research has been done on correction effects of Metformin exposure to the fetus. [...] by e-mail to: or by fax to: [phone] TIME OF CONSULTATION: 60 minutes with the patient, >50% in discussion and counseling, coordination of care which was [id number], review of records and communication back to referring provider. BRENNEN Guillen 12/03/24 1500 documented in this encounterOhioHealth Grant Medical Center07-24-2025 History of Present illness Narrative* Rosi Murray, SENIOR ELECTRONICS DESIGN ENGINEER - 11/20/2024 10:10 AM EDT Reason for Appointment: Patient ID: Sanna Rendon is a 39 y.o. female who presents for Routine Visit Patient presents today for Return OB appointment. MEDICATIONS Current Outpatient Medications Medication Instructions Alcohol Swabs (Alcohol Prep Pad) 70 % pads 1 Pad, Topical, Daily, Use four times daily to check FSBS. Blood Glucose Monitoring Suppl (D-Morizon Glucometer) w/Device kit 1 kit, Does not [...] Diagnosis Date Noted 32 weeks gestation of ([facility]) 11/28/2019 Abdominal pain 06/12/2023 Acute bronchitis due to infection 06/12/2023 Acute on chronic vesicular eczema of hands and feet 11/15/2023 Anemia complicating childbirth ([facility]) 01/16/2020 Anticoagulant long-term use 02/22/2020 Antiphospholipid antibody positive 09/10/2017 Antiphospholipid antibody syndrome ([facility]) 07/07/2019 Anxiety 06/12/2023 Blood pressure elevated without history of HTN 11/15/2023 BMI 37.0-37.9, adult 11/15/2023 Cerebral infarction, unspecified ([facility]) 05/16/2019 Cerebrovascular accident (CVA) due to stenosis of middle cerebral artery ([facility]) 02/22/2020 Cervicalgia 02/05/2019 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 ([facility]) 01/08/2020 Coagulation defect, unspecified ([facility]) 02/05/2019 Cold intolerance 11/15/2023 Deficiency of other specified B group vitamins 05/16/2019 Deviated septum 11/15/2023 Dizziness and giddiness 02/05/2019 Dry mouth 11/15/2023 Dysfunction of eustachian tube 06/12/2023 Dyspnea 06/12/2023 Elevated blood pressure reading 11/15/2023 Encounter for supervision of normal , unspecified, first trimester ([facility]) 05/29/2019 Environmental allergies 11/15/2023 Fatigue 12/29/2016 First degree perineal laceration during delivery ([facility]) 01/16/2020 Frequency of micturition 02/19/2019 Genitourinary symptoms 08/19/2021 Gestational diabetes mellitus (GDM) affecting ([facility]) 01/26/2022 H/O: hypothyroidism 11/15/2023 Hematochezia 06/12/2023 History [...] anemia 01/16/2020 Irregular uterine bleeding 11/15/2023 problem ([facility]) 06/12/2023 Less than 8 weeks gestation of ([facility]) 06/05/2019 custodial (current) use of 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/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 02/05/2019 Migraine without aura and without status migrainosus, not intractable 09/12/2017 Morbid obesity ([facility]) 11/15/2023 Muscle fasciculation 08/19/2021 Nasal polyps 11/15/2023 Non-smoker 11/15/2023 NEETA (obstructive sleep apnea) 11/15/2023 Other acute postprocedural pain 02/03/2019 Other general symptoms and signs 10/28/2019 Other immediate hemorrhage ([facility]) 01/16/2020 Other specified noninflammatory disorders of vagina 02/21/2019 Pain in joint 12/29/2016 Palpitations 08/26/2019 Paresthesia of bilateral legs 11/15/2023 Pelvic and perineal pain 02/01/2019 Personal history of urinary (tract) infections 01/16/2020 Pre-diabetes 11/15/2023 Primary hypercoagulable state ([facility]) 08/01/2022 Pruritus, unspecified 01/02/2020 Psychogenic hyperventilation 06/12/2023 Raised antibody titer 09/25/2017 Right lower quadrant pain 11/15/2023 Right otitis externa 11/15/2023 Salivary gland swelling 11/15/2023 Single live ([facility]) 01/15/2020 Snoring 11/15/2023 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) 12/30/2019 Suspected severe acute respiratory syndrome coronavirus 2 (SARS-CoV-2) infection 06/12/2023 SVT (supraventricular tachycardia) ([facility]) 08/26/2019 Syncope and collapse 06/03/2018 [...] Date AMA (advanced maternal age) multigravida 35+ ([facility]) Anemia Antiphospholipid syndrome ([facility]) Gestational diabetes ([facility]) Heartburn Hypothyroid Stroke (HCC) HISTORY [...] drainage of cyst WISDOM TOOTH EXTRACTION 2007 [place] teeth REVIEW OF SYSTEMS Review of Systems: [...] nursing note reviewed. Exam conducted with a 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 present. Vitals: Estimated body mass index is 33.57 kg/m as calculated from the following: Height as of 11/19/23: 5' 6 . Weight as of this encounter: 208 lb. BP: 108/76 Patient's last menstrual period was 07/28/2024. ASSESSMENT & PLAN ICD-10-CM 1. Second trimester ([facility]) Z34.92 Alpha fetoprotein, maternal Alpha fetoprotein, maternal 2. 16 weeks gestation of ([facility]) Z3A.16 POCT urinalysis dipstick manually resulted 3. Screening, , for anatomic survey ([facility]) Z36.89 CANCELED: US OB 14+ weeks anatomy [...] of: Wilton Herrmann DO documented in this encounterMercy Hospital St. John'[id number] Group counseling note* Group Note - Cindy [...] Face to face time was 100 minutes. [email or web address] Work Phone: [phone]) [phone] Miscellaneous Notes* Group Note - Cindy Miller [...] time was 100 minutes. documented in this encounterFirelands Regional Medical CenterYopima07-09-2025 Telephone encounter Note* Telephone Encounter - Racahel Johnson RN - 11/05/2024 12:48 PM EDT Pt updated. She reports she is unable to take aspirin. It makes my electrolytes go out of whack. Ididn't take with my previous pregnancies and I am not comfortable taking this time either. She will continue with Lovenox, as recommended. Pt is scheduled for appt with high school computer science teacher, 11/19/24, [facility]. She denies further questions, needs or concerns for our care team at this time. Appt verified for RTC Rachael Johnson RN [facility]07-09-2025 Miscellaneous Notes* Telephone Encounter [...] is scheduled for appt with high school computer science teacher, 11/19/24, [facility]. She denies further questions, [...] this time. Will monitor. Thanks, Katherine Negrete APRN.TOR * Telephone Encounter - Abbie Jimenez [...] note were not included. documented in this encounterRiverside [facility] Hospital07-09-2025 Telephone encounter Note * Telephone Encounter - Katherine Negrete APRN.CNP - 11/05/2024 12:29 PM EDT Spoke with Dr. Moscoso and she is to continue Lovenox 40 daily and add baby asa (81 mg) daily. Please also make sure she is following OB High risk. Labs acceptable at this time. Will monitor. ThanksKatherine APRN.TOILET PRODUCTS MOLDER [facility] Work Phone: [phone] Telephone encounter Note* Telephone Encounter - Abbie Jimenez PA-C - 11/04/2024 8:13 AM EDT Katherine saw this patient last and will be able to advise better of the plan of care. Abbie Jimenez PA-C [facility] Work Phone: [phone]) [phone] History of Present illness Narrative* Rosi Murray [...] Diagnosis Date Noted 32 weeks gestation of ([facility]) 11/28/2019 Abdominal pain 06/12/2023 Acute bronchitis due to infection 06/12/2023 Acute on chronic vesicular eczema of hands and feet 11/15/2023 Anemia complicating childbirth ([facility]) 01/16/2020 Anticoagulant long-term use 02/22/2020 Antiphospholipid antibody positive 09/10/2017 Antiphospholipid antibody syndrome ([facility]) 07/07/2019 Anxiety 06/12/2023 Blood pressure elevated without history of HTN 11/15/2023 BMI 37.0-37.9, adult 11/15/2023 Cerebral infarction, unspecified ([facility]) 05/16/2019 Cerebrovascular accident (CVA) due to stenosis of middle cerebral artery ([facility]) 02/22/2020 Cervicalgia 02/05/2019 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 ([facility]) 01/08/2020 Coagulation defect, unspecified ([facility]) 02/05/2019 Cold intolerance 11/15/2023 Deficiency of other specified B group vitamins 05/16/2019 Deviated septum 11/15/2023 Dizziness and giddiness 02/05/2019 Dry mouth 11/15/2023 Dysfunction of eustachian tube 06/12/2023 Dyspnea 06/12/2023 Elevated blood pressure reading 11/15/2023 Encounter for supervision of normal , unspecified, first trimester ([facility]) 05/29/2019 Environmental allergies 11/15/2023 Fatigue 12/29/2016 First degree perineal laceration during delivery ([facility]) 01/16/2020 Frequency of micturition 02/19/2019 Genitourinary symptoms 08/19/2021 Gestational diabetes mellitus (GDM) affecting ([facility]) 01/26/2022 H/O: hypothyroidism 11/15/2023 Hematochezia 06/12/2023 History [...] anemia 01/16/2020 Irregular uterine bleeding 11/15/2023 problem ([facility]) 06/12/2023 Less than 8 weeks gestation of ([facility]) 06/05/2019 custodial (current) use of 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/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 02/05/2019 Migraine without aura and without status migrainosus, not intractable 09/12/2017 Morbid obesity ([facility]) 11/15/2023 Muscle fasciculation 08/19/2021 Nasal polyps 11/15/2023 Non-smoker 11/15/2023 NEETA (obstructive sleep apnea) 11/15/2023 Other acute postprocedural pain 02/03/2019 Other general symptoms and signs 10/28/2019 Other immediate hemorrhage ([facility]) 01/16/2020 Other specified noninflammatory disorders of vagina 02/21/2019 Pain in joint 12/29/2016 Palpitations 08/26/2019 Paresthesia of bilateral legs 11/15/2023 Pelvic and perineal pain 02/01/2019 Personal history of urinary (tract) infections 01/16/2020 Pre-diabetes 11/15/2023 Primary hypercoagulable state ([facility]) 08/01/2022 Pruritus, unspecified 01/02/2020 Psychogenic hyperventilation 06/12/2023 Raised antibody titer 09/25/2017 Right lower quadrant pain 11/15/2023 Right otitis externa 11/15/2023 Salivary gland swelling 11/15/2023 Single live ([facility]) 01/15/2020 Snoring 11/15/2023 Speech and language deficit [...] drainage of cyst WISDOM TOOTH EXTRACTION 2007 [place] teeth REVIEW OF SYSTEMS Review of Systems: [...] nursing note reviewed. Exam conducted with a 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 present. Vitals: Estimated body mass index is 33.81 kg/m as calculated from the following: Height as of 11/19/23: 5' 6 . Weight as of this encounter: 209 lb 8 oz. BP: 110/76 Patient's last menstrual period was 07/28/2024. ASSESSMENT & PLAN ICD-10-CM 1. Second trimester ([facility]) Z34.92 POCT urinalysis dipstick manually resulted 2. 13 weeks gestation of ([facility]) Z3A.13 3. Thyroid disease E07.9 4. Multigravida of advanced maternal age in second trimester ([facility]) O09.522 New OB: Patient presents today for [...] or undercooked meat, and stay away from [facility]. Patient has been consulted regarding any further do's and don'tsof . Patient voiced understanding and all questions and concerns were answered. Patient is currently on 40 Lovenox and will be referred to [facility] for recommendations/co-management throughout . Discussed concerns in regards to bleeding with Lovenox and possible dosage changes throughout due to recommendations from high risk providers. Patient is currently checking FSBS and will bring log with her next visit. Include Diabetic Management with [facility] Referral. Orders Placed This Encounter Procedures POCT urinalysis dipstick manually resulted Follow Up: Patient is to return in 4 weeks for routine OB appointment. Documented by Rosi Murray LPN on behalf of: Wilton Herrmann DO documented in this encounterMercy Hospital St. John'[id number] Telephone encounter Note* Telephone Encounter - Valeri Yeung RN - 10/30/2024 8:30 AM EDT Labs resulted. Please advise. Valeri Yeung RN [facility]07-01-2025 Telephone encounter Note* Telephone Encounter - Roberta Haskins - 10/28/2024 2:52 PM EDT Images from the original note were not included. [facility]07-01-2025 NoteHNO ID: [id number] Author: KATHERINE NEGRETE APRN.[employer] PRODUCTS MOLDER Service: ? Author Type: Nurse Practitioner Type: Progress Notes Filed: 10/29/2024 21:44 Note Text: NAME: Sanna Rendon CLINIC NO.: [id number] DATE OF SERVICE: October 28, 2024 (Penelope) [...] later in 2018. These were found in [place], [place]. I don't have access to these [...] a target-like rash shortly before presenting to [facility] in 2016 with headaches and was [...] vision changes both have (more content not included)...[facility]07-01-2025 History of Present illness Narrative* Katherine Negrete APRN.[employer]ODU[employer] MOLDER - 10/28/2024 2:33 PM EDT Images from the original note were not included. NAME: Sanna Rendon CLINIC NO.: [id number] DATE OF SERVICE: October 28, 2024 (Penelope) [...] later in 2018. These were found in [place], [place]. I don't have access to these [...] a target-like rash shortly before presenting to [facility] in 2015 with headaches and was [...] Monge soon. When she hada stroke in [place], she had symptoms up to a month before: uncontrollable headache, BP was elevated, knee stiffness, and blurry vision. Right facial drooping and difficulty speaking [facility] She continues to [facility] vitamins. Updated [...] and stayed on Lovenox Hgb 13.1 @ [facility] Recommended ER if persisting bleeding but she [...] and at age 69. Both lived in [facility] but she was adopted. She was not able to see ID in October and will be seeing Dr. Baugh next week. Also will have her see Dr. Hamlin for her clotting disorder and make any other recommendations to optimize her treatment. Updated Visit, October 08, 2020: Telephone only Received call from pt stating she was seen in [facility] for numbness in her chest, throat, and extremities, and sob which has been worsening over the last week. We arranged a telephone visit for her chanw questions with me. Sanna Rendon is a 34 year old female seen for Hypercoagulable state and recent concerns and symptoms that required her to be seen at [facility]. She went to the ER with Gradual worsening of breathing after progressive tingling of fingers and legs. She currently remains very fatigued even though she is sleeping well. Now recalls that before her stroke she remembers having a bull's eye rash and was seen with severe headaches in [place], [place] - was found to have a [...] a root canal and was sent to [facility] for MRI which was negative but non-contrasted. [...] history goes back to January [address] [facility] where she had persisting headaches and slurred speech followed by lower extremity weakness. This took a few months to resolve and she is back to her normal state of being but some point in time during her her next she was seen by Dr. Humera Hyde in [place] as well and was found to have [...] which included preparing to see the patient, dtbu-xb-epjy patient care, completing clinical documentation, obtaining and/or reviewing separately obtained history, performing a medically appropriate examination, counseling and educating the pat ient/family/caregiver, ordering medications, tests, or procedures, independently interpreting results (not separately reported), and communicating results to the patient/family/caregiver. Katherine Negrete APRN.[employer] M[employer]DER H[facility]ology [facility] Oncology [facility] Provided at: [place], [place] CC: MD Wilton Day, [address] [place] [address] Humaira Gaviria MD [address] [place] [address] MD Cosmo Kingston MD Michael Blank, MD documented in this encounterRiverside [facility]06-27-2025 Telephone encounter Note * Telephone Encounter - Kaur Dunham MA - 10/24/2024 2:14 PM EDT New orders may need placed for appt on 10/28. Kaur Dunham MA [facility]06-27-2025 Miscellaneous Notes* Telephone Encounter - Kaur Dunham MA - 10/24/2024 2:14 PM EDT New orders may need placed for appt on 10/28. Kaur Dunham MA documented in this encounterRiverside [facility] Hospital06-16-2025 Miscellaneous Notes* Telephone Encounter - Margo Khan RN - 10/13/2024 12:14 PM EDT Attempted to contact patient x3, call cannot be completed, cannot receive calls at this time. Unable to leave a voicemail. [facility] Telephone encounter Note* Telephone Encounter - Margo Khan RN - 10/13/2024 12:14 PM EDT Attempted to contact patient x3, call cannot be completed, cannot receive calls at this time. Unable to leave a voicemail. [facility] Hiptype [id number] History of Present illness Narrative* Lalaondina Hess MA - 10/02/2024 1:00 PM EDT [...] to stenosis of middle cerebral artery ([facility]) 02/22/2020 Cervicalgia 02/05/2019 Chromosomal abnormality [...] Less than 8 weeks gestation of 06/05/2019 pearl hand (current) use of 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/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 02/05/2019 Migraine without aura and without status migrainosus, not intractable ([facility]) 09/12/2017 Morbid obesity ([facility]) 11/15/2023 Muscle fasciculation 08/19/2021 Nasal [...] 01/16/2020 Pre-diabetes 11/15/2023 Primary hypercoagulable state ([facility]) 08/01/2022 Pruritus, unspecified 01/02/2020 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[facility]) 06/12/2023 Raised antibody titer 09/25/2017 Right lower quadrant pain 11/15/2023 Right otitis externa 11/15/2023 Salivary gland swelling 11/15/2023 Single live 01/15/2020 Snoring 11/15/2023 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) 12/30/2019 Suspected severe acute respiratory syndrome coronavirus 2 (SARS-CoV-2) infection 06/12/2023 SVT (supraventricular tachycardia) ([facility]) 08/26/2019 Syncope and collapse 06/03/2018 Other bacterial infections of unspecified site 06/27/2019 Thrombocytopenia, unspecified ([facility]) 11/20/2019 Hypoglycemia 06/12/2023 Unspecified condition associated with female genital organs and menstrual cycle 05/09/2019 Unspecified ovarian cyst, right side 02/06/2019 Urinary tract infection 10/16/2019 Referred otalgia of right ear 11/19/2023 LPRD (laryngopharyngeal reflux disease) 11/19/2023 Resolved Ambulatory Problems Diagnosis Date Noted No Resolved Ambulatory Problems Past Medical History: Diagnosis Date AMA (advanced maternal age) multigravida 35+ Anemia Antiphospholipid syndrome ([facility]) Gestational diabetes Heartburn Hypothyroid ([facility]) Stroke ([facility]) Family History Problem Relation Name [...] drainage of cyst WISDOM TOOTH EXTRACTION 2007 [place] teeth Allergies Allergen Reactions Ciprofloxacin GI intolerance [...] Rapid drug screen, urine; Future Thyroid disease ([facility]) - TSH Nurse Note: Patient desires to have [employer] to one. Pt was advised to [...] or undercooked meat, and stay away from [facility]. Patient has also been advised [...] by: Lala Hess MA documented in this encounterMercy Hospital St. John'[id number] NotePatient Education Infectious Disease Upper Respiratory Infection, [...] to help relieve symptoms, such as: ??? Qipb-heo-xsqtrrh cold medicines. ??? Cough suppressants. Coughing is [...] other clear broths. General instructions ??? Take fgvc-xpz-dowbrbo and prescription medicines only as told by [...] and water are not available, use hand head rose grower. ??? Avoid touching your mouth, face, eyes, [...] a stiff neck. ? (more content not included)...[facility]05-07-2025 Miscellaneous Notes* Telephone Encounter - Rachael Johnson [...] advise Rachael Johnson RN documented in this encounterRiverside [facility] Hospital05-07-2025 Telephone encounter Note * Telephone Encounter - Rachael Johnson RN - 09/03/2024 1:25 PM EDT Pt notified and appt for September. She denies any further questions, needs or concerns at thistime. Rachael Johnson RN [facility]05-07-2025 Telephone encounter Note* Telephone Encounter - Kristofer Calix MD - 09/03/2024 12:51 PM EDT No change in meds. [facility]05-06-2025 Telephone encounter Note* Telephone Encounter - Rachael Johnson RN - 09/02/2024 9:37 AM EDT Pt left a voicemail to inform she is approximately 5 weeks . She is asking any recommendations on med changes. Pt missed today's appt. Called and left VM to please call and schedule missed follow up MUNIRA. Fely: Please advise Rachael Johnson RN [facility]04-29-2025 Telephone encounter Note* Telephone Encounter - Serina Dawson MA - 08/26/2024 3:41 PM EDT Patient has an appt on 08/27/24. Would you like labs, if so place orders. Serina Dawson MA [facility]04-29-2025 Miscellaneous Notes* Telephone Encounter - Serina Horton MA - 08/26/2024 3:41 PM EDT Patient has an appt on 08/27/24. Would you like labs, if so place orders. Serina Dawson MA documented in this encounterRiverside Methodist Hospital04-08-2025 Evaluation + Plan note Future Scheduled Tests Laboratory* HgbA1c 08/05/24 * HgbA1c 11/04/24 Radiology* CT Soft Tissue Neck w/ Contrast 11/12/23 [facility] 03-27-2025 History of Present [...] antibody positive 09/10/2017 Antiphospholipid antibody syndrome ([facility]) 07/07/2019 Anxiety 06/12/2023 Blood pressure elevated without history of HTN 11/15/2023 BMI 37.0-37.9, adult 11/15/2023 Cerebral infarction, unspecified ([facility]) 05/16/2019 Cerebrovascular accident (CVA) due to stenosis of middle cerebral artery ([facility]) 02/22/2020 Cervicalgia 02/05/2019 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 Coagulation defect, unspecified ([facility]) 02/05/2019 Cold intolerance 11/15/2023 Deficiency [...] Less than 8 weeks gestation of 06/05/2019 custodial (current) use of 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/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 02/05/2019 Migraine without aura and without status migrainosus, not intractable ([facility]) 09/12/2017 Morbid obesity ([facility]) 11/15/2023 Muscle fasciculation 08/19/2021 Nasal [...] 01/16/2020 Pre-diabetes 11/15/2023 Primary hypercoagulable state ([facility]) 08/01/2022 Pruritus, unspecified 01/02/2020 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[facility]) 06/12/2023 Raised antibody titer 09/25/2017 Right lower quadrant pain 11/15/2023 Right otitis externa 11/15/2023 Salivary gland swelling 11/15/2023 Single live 01/15/2020 Snoring 11/15/2023 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) 12/30/2019 Suspected severe acute respiratory syndrome coronavirus 2 (SARS-CoV-2) infection 06/12/2023 SVT (supraventricular tachycardia) ([facility]) 08/26/2019 Syncope and collapse 06/03/2018 Other bacterial infections of unspecified site 06/27/2019 Thrombocytopenia, unspecified ([facility]) 11/20/2019 Hypoglycemia 06/12/2023 Unspecified condition associated with female genital organs and menstrual cycle 05/09/2019 Unspecified ovarian cyst, right side 02/06/2019 Urinary tract infection 10/16/2019 Referred otalgia of right ear 11/19/2023 LPRD (laryngopharyngeal reflux disease) 11/19/2023 Resolved Ambulatory Problems Diagnosis Date Noted No Resolved Ambulatory Problems Past Medical History: Diagnosis Date AMA (advanced maternal age) multigravida 35+ Anemia Antiphospholipid syndrome ([facility]) Gestational diabetes Heartburn Hypothyroid ([facility]) Stroke ([facility]) HISTORY PAST MEDICAL HISTORY SOCIAL HISTORY Past Medical History: Diagnosis Date AMA (advanced maternal age) multigravida 35+ Anemia Antiphospholipid syndrome ([facility]/H[facility]) Gestational diabetes Heartburn Hypothyroid ([facility]) Stroke ([facility]) Social History Tobacco Use Smoking [...] drainage of cyst WISDOM TOOTH EXTRACTION 2007 [place] teeth REVIEW OF SYSTEMS Review of Systems: [...] nursing note reviewed. Exam conducted with a 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 present. Vitals: Estimated body mass index is [...] of: Wilton Herrmann DO documented in this encounterMercy Hospital St. John'[id number] NotePatient Education Emergency Medicine Bradycardia, Adult Bradycardia is a vcgteo-rxth-jgkwlh heartbeat. A normal resting heart rate for [...] ??? Follow a heart-healthy diet. A nutrition associate (dietitian) can help educate you about healthy [...] liquor (44 mL). General instructions ??? Take egnv-oty-hzqtzqz and prescription medicines only as told by [...] irregular heartbeat (palpitations). ??? (more content not included)...[facility]03-03-2025 Hospital Discharge instructions Patient Education 06/30/2024 09:20:56 [...] Follow these instructions at home: Medicines Give mdyw-zna-aczlfca and prescription medicines only as told by [...] is important. Where to find more information [place] Network: pandasnetwork.org National [place] of Mental Health: [facility].nih.gov Contact a health care provider if: Your [...] the National Suicide Prevention Lifeline at or 102. This is open 24 hours a day. Text the Crisis Text Line at 756459. Summary Pediatric autoimmune neuropsychiatric disorders associated with [...] provider. Document Revised: 01/09/2022 Document Reviewed: 01/09/2022 Plaid Patient Education 2023 [employer]. 06/30/2024 09:20:50 Common Variable Immunodeficiency Common Variable [...] Follow these instructions at home: Medicines Take hwiq-mpg-evaamyw and prescription medicines only as told by [...] disease. Where to find more information National [place] of Allergy and Infectious Disease: www.niaid.nih.gov Contact [...] risk for frequent or unusual infections. Take bmcw-bpv-nqzyxzq and prescription medicines only as told by [...] provider. Document Revised: 11/18/2021 Document Reviewed: 11/18/2021 Plaid Patient Education 2023 [employer]. 06/30/2024 09:18:06 DASH Eating Plan DASH Eating [...] Dairy Whole or 2% milk, cream, and bhrc-ibh-ubno. Whole or full-fat cream cheese. Whole-fat or [...] more information National Heart, Lung, and Blood [place] (NHLBI): nhlbi.nih.gov [place] Heart Association (AHA): heart.org Academy of Nutrition and Dietetics: eatright.org National Kidney Foundation (NKF): kidney.org This information is not intended to replace advice given to you by your health care provider. Make sure you discuss any questions you have with your health care provider. Document Revised: 05/03/2023 Document Reviewed: 05/03/2023 Elsevier Patient Education 2023 [employer]. Follow Up Care 06/25/2024 13:53:59 With:PRAVEEN RESENDEZ FAAFP, CHRIS Perez, PED [facility] [address], [facility] [place] [address]- When:Within 2 Month(s) [facility] 03-03-2025 NotePatient Education Immunology [...] these instructions at home: Medicines ??? Take vgcv-tyk-wfrzjpx and prescription medicines only as told by [...] Where to find more information ??? [place] of Allergy and Infectious Disease: www.niaid.nih.gov Contact a health care provider if: ??? You have a fever. ??? You have any symptoms of infection such as chills, worsening cough, or severe earache. ??? You make high-pitched whistling sounds when you breathe, most often when you breathe out (wheeze). (more content not included)...[facility]02-24-2025 History of Present illness Narrative* Rosi Murray, [...] antibody positive 09/10/2017 Antiphospholipid antibody syndrome ([facility]) 07/07/2019 Anxiety 06/12/2023 Blood pressure elevated without history of HTN 11/15/2023 BMI 37.0-37.9, adult 11/15/2023 Cerebral infarction, unspecified ([facility]) 05/16/2019 Cerebrovascular accident (CVA) due to stenosis of middle cerebral artery ([facility]) 02/22/2020 Cervicalgia 02/05/2019 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 Coagulation defect, unspecified ([facility]) 02/05/2019 Cold intolerance 11/15/2023 Deficiency [...] Less than 8 weeks gestation of 06/05/2019 pearl hand (current) use of 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/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 02/05/2019 Migraine without aura and without status migrainosus, not intractable ([facility]) 09/12/2017 Morbid obesity ([facility]) 11/15/2023 Muscle fasciculation 08/19/2021 Nasal [...] 01/16/2020 Pre-diabetes 11/15/2023 Primary hypercoagulable state ([facility]) 08/01/2022 Pruritus, unspecified 01/02/2020 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[facility]) 06/12/2023 Raised antibody titer 09/25/2017 Right lower quadrant pain 11/15/2023 Right otitis externa 11/15/2023 Salivary gland swelling 11/15/2023 Single live 01/15/2020 Snoring 11/15/2023 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) 12/30/2019 Suspected severe acute respiratory syndrome coronavirus 2 (SARS-CoV-2) infection 06/12/2023 SVT (supraventricular tachycardia) ([facility]) 08/26/2019 Syncope and collapse 06/03/2018 Other bacterial infections of unspecified site 06/27/2019 Thrombocytopenia, unspecified ([facility]) 11/20/2019 Hypoglycemia 06/12/2023 Unspecified condition [...] drainage of cyst WISDOM TOOTH EXTRACTION 2007 [place] teeth REVIEW OF SYSTEMS Review of Systems: [...] nursing note reviewed. Exam conducted with a 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 present. Vitals: Estimated body mass index is [...] of: Wilton Herrmann DO documented in this encounterMercy Hospital St. John'[id number] Hospital Discharge instructions Patient Education 06/09/2024 14:23:47 [...] Do not chew gum. General instructions Take vpxl-ypv-saabnlb and prescription medicines only as told by [...] important. Where to find more information National [place] of Dental and Craniofacial Research: www.nidcr.nih.gov Contact [...] provider. Document Revised: 11/27/2021 Document Reviewed: 11/27/2021 Plaid Patient Education 2023 [employer]. Follow Up Care 06/06/2024 11:26:13 With:PRAVEEN RESENDEZ FAAFP, Penelope Tony, CHRIS, PED Address: [place] [address]- When:Within 6 Month(s) [facility] 02-10-2025 NotePatient Education Orthopedics [...] not chew gum. General instructions ??? Take mman-dzf-urnuvtk and prescription medicines only as told by [...] Where to find more information ??? National [place] of Dental and Craniofacial Research: www.nidcr.nih.gov Contact [...] provider. Document Revised: 11/27/2021 Document Reviewed: 11/27/2021 Elsevier Patient Education ? 2023 [employer].[facility] 06-02-2024 History of Present illness Narrative* Renate Vegas, SENIOR ELECTRONICS DESIGN ENGINEER - 06/02/2024 11:20 AM EST Reason for [...] Less than 8 weeks gestation of 06/05/2019 pearl hand (current) use of 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/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 02/05/2019 Migraine without aura and without status migrainosus, not intractable ([facility]) 09/12/2017 Morbid obesity (CMS/HCC) 11/15/2023 Muscle fasciculation [...] (SARS-CoV-2) infection 06/12/2023 SVT (supraventricular tachycardia) ([facility]) 08/26/2019 Syncope and collapse 06/03/2018 Other bacterial infections of unspecified site 06/27/2019 Thrombocytopenia, unspecified ([facility]) 11/20/2019 Hypoglycemia 06/12/2023 Unspecified condition associated [...] syndrome (CMS/HCC) Gestational diabetes Heartburn Hypothyroid ([facility]/HCC) Stroke (CMS/HCC) HISTORY PAST MEDICAL HISTORY SOCIAL HISTORY Past Medical History: Diagnosis Date AMA (advanced maternal age) multigravida 35+ Anemia Antiphospholipid syndrome (CMS/HCC) Gestational diabetes Heartburn Hypothyroid ([facility]) Stroke (CMS/HCC) Social History Tobacco Use [...] drainage of cyst WISDOM TOOTH EXTRACTION 2007 [place] teeth REVIEW OF SYSTEMS Review of Systems: [...] nursing note reviewed. Exam conducted with a 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 present. Vitals: Estimated body mass index is [...] Patient had recent HCG level drawn at [facility] 05/[facility]/2024 lab value was 6. Documented by Renate Vegas LPN on behalf of: Wilton Herrmann DO documented in this encounterMercy Hospital St. John'[id number] Telephone encounter Note* Telephone Encounter - Taylor Escudero - 05/28/2024 1:45 PM EST Triage to call with iron results [facility]01-29-2025 Miscellaneous Notes* Telephone Encounter - Taylor Escudero - 05/28/2024 1:45 PM EST Triage to call with iron results documented in this encounterRiverside Methodist Hospital01-29-2025 Instructions* Patient Instructions* Nathaly Florence - 05/28/2024 1:44 PM EST Triage to call iron results Continue Lovenox - patient prefers 40 mg (rather than rec 80mg) Encouraged her to reconsider Take B12 supplement in the form of a sublingual tablet RTC in 3 months Labs same day or 2-7 days prior documented in this encounterRiverside Methodist Hospital01-29-2025 History of Present illness Narrative* Kristofer Calix MD - 05/28/2024 1:00 PM EST Images from the original note were not included. NAME: Sanna Rendon CLINIC NO.: [id number] DATE OF SERVICE: May 28, 2024 (Levon) [...] later in 2018. These were found in [place], [place]. I don't have access to these [...] a target-like rash shortly before presenting to [facility] in 2016 with headaches and was [...] Monge soon. When she hada stroke in [place], she had symptoms up to a month before: uncontrollable headache, BP was elevated, knee stiffness, and blurry vision. Right facial drooping and difficulty speaking [facility] She continues to take vitamins. Updated [...] and stayed on Lovenox Hgb 13.1 @ [facility] Recommended ER if persisting bleeding but she [...] and at age 69. Both lived in [facility] but she was adopted. She was not able to see ID in October and will be seeing Dr. Baugh next week. Also will have her see Dr. Hamlin for her clotting disorder and make any other recommendations to optimize her treatment. Updated Visit, October 08, 2020: Telephone only Received call from pt stating she was seen in [facility] for numbness in her chest, throat, and extremities, and sob which has been worsening over the last week. We arranged a telephone visit for her chanw questions with me. Sanna Rendon is a 34 year old female seen for Hypercoagulable state and recent concerns and symptoms that required her to be seen at [facility]. She went to the ER with Gradual worsening of breathing after progressive tingling of fingers and legs. She currently remains very fatigued even though she is sleeping well. Now recalls that before her stroke she remembers having a bull's eye rash and was seen with severe headaches in [facility] was found to have a [...] a root canal and was sent to [facility] for MRI which was negative but non-contrasted. [...] presents today at the request of Dr. Hermrann for oncology evaluation. She is a 33 year old female who is currently on Plavix for CVA prophylaxis and is been referred for opinion regarding changing over to Lovenox due to her underlying findings of antiphospholipid antibodies. Her history goes back to January [address] [facility] where she had persisting headaches and slurred speech followed by lower extremity weakness. This took a few months to resolve and she is back to her normal state of being but some point in time during her her next she was seen by Dr. Humera Hyde in [place] as well and was found to have [...] which included preparing to see the patient, pwqx-ym-oxrz patient care, completing clinical documentation, performing a medically appropriate examination, counseling and educating the patient/family/caregiver, ordering medications, tests, or p rocedures, independently interpreting results (not separately reported), communicating results to the patient/family/caregiver, and care coordination (not separately reported). Kristofer Calix MD, CPE Hematology and Oncology Services Provided at: [facility], [place], [place] Scribe Attestation: This note was scribed by Nathaly Florence on May 28, 2024 under the direction and supervision of Dr. Kristofer aClix. I attest that all of the information documented is correct to the best of myknowledge. Provider Attestation: I, Kristofer Calix MD, attest that all information documented by the above scribe is correct, and was supervised by me and under my direction. CC: MD Wilton Day, [address] [place] [address] Humaira Gaviria MD [address] [place] [id number] MD Cosmo Kingston MD Michael Blank, MD documented in this encounterRivers[facility]01-29-2025 NoteHNO ID: [id number] Author: KRISTOFER CALIX MD Service: ? Author Type: Physician Type: Progress Notes Filed: 05/29/2024 09:13 Note Text: NAME: Sanna Rendon CLINIC NO.: [id number] DATE OF SERVICE: May 28, 2024 ([place]) [...] later in 2018. These were found in [place], [place]. I don't have access to these [...] a target-like rash shortly before presenting to [facility] in 2016 with headaches and was [...] soon. When she had a stroke in [place], she had symptoms up to a month [...] breast feeding. Updated Visit, (more content not included)...[facility] 05-14-2024 Telephone encounter Note* Telephone Encounter - Rachael Johnson RN - 05/14/2024 10:15 AM EST Pt called to inform she had a miscarriage, Sunday (05/10/24) Asking if any additional blood work was needed from out standpoint. Pt aware we will be checking her CBC for any signs of anemia and her iron studies for deficiency. She is aware if her administrative secretary or PCP request any additional testing, we can certainly draw with her appt 05/21 (will just need to fax orders). She denies any further questions needs or concerns at this time. MARSHA Rushk: YANET [facility]01-15-2025 Miscellaneous Notes* Telephone Encounter - Rachael Johnson RN - 05/14/2024 10:15 AM EST Pt called to inform she had a miscarriage, Sunday (05/10/24) Asking if any additional blood work was needed from out standpoint. Pt aware we will be checking her CBC for any signs of anemia and her iron studies for deficiency. She is aware if her administrative secretary or PCP request any additional testing, we can certainly draw with her appt 05/21 (will just need to fax orders). She denies any further questions needs or concerns at this time. MARSHA Rush: YANET documented in this encounterRiverside [facility] Hospital01-15-2025 Telephone encounter Note * Telephone [...] thinnersat follow up appointment. PVU--Rosi Presley LPN [facility]'[id number] Miscellaneous Notes* Telephone Encounter - Rosi Murray LPN - 05/14/2024 9:19 AM EST 907 Patient called to inquire if when she [...] appointment. PVU--Rosi Presley LPN documented in this encounterMercy Hospital St. 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 Coagulation defect, unspecified ([facility]) 02/05/2019 Cold intolerance 11/15/2023 Deficiency [...] Less than 8 weeks gestation of 06/05/2019 pearl hand (current) use of 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/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 02/05/2019 Migraine without aura and without status migrainosus, not intractable ([facility]) 09/12/2017 Morbid obesity ([facility]) 11/15/2023 Muscle fasciculation 08/19/2021 Nasal [...] 01/16/2020 Pre-diabetes 11/15/2023 Primary hypercoagulable state ([facility]) 08/01/2022 Pruritus, unspecified 01/02/2020 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[facility]) 06/12/2023 Raised antibody titer 09/25/2017 Right lower quadrant pain 11/15/2023 Right otitis externa 11/15/2023 Salivary gland swelling 11/15/2023 Single live 01/15/2020 Snoring 11/15/2023 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) 12/30/2019 Suspected severe acute respiratory syndrome coronavirus 2 (SARS-CoV-2) infection 06/12/2023 SVT (supraventricular tachycardia) ([facility]) 08/26/2019 Syncope and collapse 06/03/2018 Other bacterial infections of unspecified site 06/27/2019 Thrombocytopenia, unspecified ([facility]) 11/20/2019 Hypoglycemia 06/12/2023 Unspecified condition associated with female genital organs and menstrual cycle 05/09/2019 Unspecified ovarian cyst, right side 02/06/2019 Urinary tract infection 10/16/2019 Referred otalgia of right ear 11/19/2023 LPRD (laryngopharyngeal reflux disease) 11/19/2023 Resolved Ambulatory Problems Diagnosis Date Noted No Resolved Ambulatory Problems Past Medical History: Diagnosis Date AMA (advanced maternal age) multigravida 35+ Anemia Antiphospholipid syndrome ([facility]) Gestational diabetes Heartburn Hypothyroid ([facility]) Stroke ([facility]) HISTORY PAST MEDICAL HISTORY SOCIAL [...] drainage of cyst WISDOM TOOTH EXTRACTION 2007 [place] REVIEW OF SYSTEMS Review of Systems: [...] nursing note reviewed. Exam conducted with a 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 present. Vitals: Estimated body mass index is [...] urinalysis dipstick manually resulted documented in this encounterMercy Hospital St. 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 Coagulation defect, unspecified ([facility]) 02/05/2019 Cold intolerance 11/15/2023 Deficiency [...] Less than 8 weeks gestation of 06/05/2019 pearl hand (current) use of 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/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 02/05/2019 Migraine without aura and without status migrainosus, not intractable ([facility]) 09/12/2017 Morbid obesity ([facility]) 11/15/2023 Muscle fasciculation 08/19/2021 Nasal [...] 01/16/2020 Pre-diabetes 11/15/2023 Primary hypercoagulable state ([facility]) 08/01/2022 Pruritus, unspecified 01/02/2020 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[facility]) 06/12/2023 Raised antibody titer 09/25/2017 Right lower quadrant pain 11/15/2023 Right otitis externa 11/15/2023 Salivary gland swelling 11/15/2023 Single live 01/15/2020 Snoring 11/15/2023 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) 12/30/2019 Suspected severe acute respiratory syndrome coronavirus 2 (SARS-CoV-2) infection 06/12/2023 SVT (supraventricular tachycardia) ([facility]) 08/26/2019 Syncope and collapse 06/03/2018 Other bacterial infections of unspecified site 06/27/2019 Thrombocytopenia, unspecified ([facility]) 11/20/2019 Hypoglycemia 06/12/2023 Unspecified condition associated with female genital organs and menstrual cycle 05/09/2019 Unspecified ovarian cyst, right side 02/06/2019 Urinary tract infection 10/16/2019 Referred otalgia of right ear 11/19/2023 LPRD (laryngopharyngeal reflux disease) 11/19/2023 Resolved Ambulatory Problems Diagnosis Date Noted No Resolved Ambulatory Problems Past Medical History: Diagnosis Date AMA (advanced maternal age) multigravida 35+ Anemia Antiphospholipid syndrome ([facility]) Gestational diabetes Heartburn Hypothyroid ([facility]) Stroke ([facility]) Family History Problem Relation Name [...] drainage of cyst WISDOM TOOTH EXTRACTION 2007 [place] teeth Allergies Allergen Reactions Ciprofloxacin GI intolerance [...] or undercooked meat, and stay away from [facility]. Patient has also been advised [...] by: Ariane Joseph LPN documented in this encounterMercy Hospital St. John'[id number] Telephone encounter Note* Telephone Encounter - Rachael Johnson RN - 02/28/2024 8:21 AM EDT Pt aware and agreeable to plan of care. Pt denies any further questions, needs or concerns at this time. Appt verified for lab/follow up Rachael Johnson RN [facility]10-31-2024 Miscellaneous Notes* Telephone Encounter [...] advise Rachael Johnson RN documented in this encounterRiverside Methodist Hospital10-30-2024 Telephone encounter Note * Telephone Encounter - Kristofer Calix MD - 02/27/2024 4:36 PM EDT She can take the iron with prenatals. We should Johnathon labs as scheduled. [facility]10-30-2024 Telephone encounter Note* Telephone Encounter - Rachael Johnson RN - 02/27/2024 9:41 AM EDT Pt 4 weeks and inquiring if she should have March' lab work completed now or wait until scheduled appt. Pt last labs completed 01/02/24. Pt also would like to know if it is okay to take with iron? Fely: Please advise Rachael Johnson RN [facility]10-08-2024 Hospital Discharge instructions Patient [...] condition. Follow these instructions at home: Take nihw-cja-sozssby and prescription medicines only as told by [...] and water are not available, use hand head rose grower. Avoid contact with people who have cold [...] it is easier to cough up. Take enbp-qbn-rqszyfe and prescription medicines only as told by [...] provider. Document Revised: 07/27/2022 Document Reviewed: 08/17/2021 [employer] Patient Education 2023 [employer]. Follow Up Care 02/04/2024 08:47:42 With:PRAVEEN RESENDEZ FAAFP, CHRIS Perez, PED Address: [address] [place] [address] [place] [address]- When:Within 3 Month(s) [facility] 10-08-2024 NotePatient Education Pulmonary [...] Follow these instructions at home: ? Take wxfk-kqm-rqzhwqa and prescription medicines only as told by [...] and water are not available, use hand head rose grower. ? Avoid contact with people who have [...] is easier to cough up. ? Take olen-lct-dwjrclc and (more content not included)...[facility]10-05-2024 Hospital Discharge instructions Follow Up Care 02/02/2024 11:19:56 With:Anni Bernstein MD, [facility], [facility] Address: [address] [place] [phone] When: only if needed [facility] 09-09-2024 Miscellaneous Notes* Telephone [...] FE results. Thank you documented in this encounterRiverside Methodist Hospital09-09-2024 Telephone encounter Note * Telephone Encounter - Valeri Yeung RN - 01/07/2024 8:29 AM EDT No need for IV iron per CC'd chart from Dr. Calix. Attempt to call pt to notify. Left detailed message on, along with call back number on voicemail. Valeri Long, RN [facility]09-04-2024 Telephone encounter Note* Telephone Encounter - Marleen Mcdonald - 01/02/2024 2:[address] Luna is requesting Triage to call Sanna with her FE results. Thank you [facility]09-04-2024 Instructions* Patient Instructions* Nathaly Florence - 01/02/2024 2:08 PM EDT Triage to call iron results Continue Lovenox - patient prefers 40 mg (rather than rec 80mg) Encouraged her to reconsider Take B12 supplement in the form of a sublingual tablet RTC in 3 months Labs same day Vitamin D, TSH, Calcium with CMP documented in this encounterRiverside Methodist Hospital09-04-2024 Nurse Note* Serina Horton MA [...] MRI but was negative. Serina Dawson MA [facility]09-04-2024 Nurse Note* Serina Dawson [...] negative. Serina Dawson MA documented in this encounterRiverside Methodist Hospital09-04-2024 History of Present illness Narrative* Kristofer Calix MD - 01/02/2024 1:45 PM EDT Images from the original note were not included. NAME: Sanna Rendon [facility] NO.: [id number] DATE OF SERVICE: January 02, 2024 ([place]) Some elements in this clinic note that are critical to medical decision making have been carefully reviewed and included from a prior clinic note dated: June 15, 2023 ([place]) Additional Clinicians involved in Sanna Rendon's care: Drs. Herrmann, Jorge Monge, Humaiar Gaviria, CC: hypercoag state. ASSESSMENT: 38 year old woman presents with a prior history of CVA in 2016 and an antiphospholipid antibody that was identified much later in 2018. These were found in [place], [place]. I don't have access to these [...] a target-like rash shortly before presenting to [facility] in 2016 with headaches and was [...] Monge soon. When she hada stroke in [place], she had symptoms up to a month before: uncontrollable headache, BP was elevated, knee stiffness, and blurry vision. Right facial drooping and difficulty [facility] to [facility]. Updated [...] and stayed on Lovenox Hgb 13.1 @ [facility] Recommended ER if persisting bleeding but she [...] and at age 69. Both lived in [facility] but she was adopted. She was not able to see ID in October and will be seeing Dr. Baugh next week. Also will have her see Dr. Hamlin for her clotting disorder and make any other recommendations to optimize her treatment. Updated Visit, October 08, 2020: Telephone only Received call from pt stating she was seen in [facility] for numbness in her chest, throat, and extremities, and sob which has been worsening over the last week. We arranged a telephone visit for her chanw questions with me. Sanna Rendon is a 34 year old female seen for Hypercoagulable state and recent concerns and symptoms that required her to be seen at [facility]. She went to the ER with Gradual worsening of breathing after progressive tingling of fingers and legs. She currently remains very fatigued even though she is sleeping well. Now recalls that before her stroke she remembers having a bull's eye rash and was seen with severe headaches in [place], [place] - was found to have a [...] a root canal and was sent to [facility] for MRI which was negative but non-contrasted. [...] history goes back to January [address] [facility] where she had persisting headaches and slurred speech followed by lower extremity weakness. This took a few months to resolve and she is back to her normal state of being but some point in time during her her next she was seen by Dr. Humera Hyde in [place] as well and was found to have [...] (chronic) No date: Kidney stones Comment: early s No date: Missed menses No date: Nausea [...] which included preparing to see the patient, fnuf-ab-kjqi patient care, completing clinical documentation, performing a medically appropriate examination, counseling and educating the patient/family/caregiver, ordering medications, tests, or p rocedures, independently interpreting results (not separately reported), communicating results to the patient/family/caregiver, and care coordination (not separately reported). Kristofer Calix MD, CPE Hematology and Oncology Services Provided at: [facility], [place], [place] Scribe Attestation: This note was scribed [...] under my direction. CC: MD Wilton Day, [address] [place] [address] Humaira Gaviria MD [address] [place] [id number] MD Cosmo Kingston MD Michael Blank, MD documented in this encounterRiverside Methodist Hospital08-19-2024 Telephone encounter Note * Telephone Encounter - Rachael Johnson RN - 12/17/2023 12:57 PM EDT Pt updated and will follow up with PCP. Denies further questions, needs or concerns at this time for our provider. Rachael Johnson RN [facility]08-19-2024 Miscellaneous Notes* Telephone Encounter [...] to IV Iron 11/29/23? documented in this encounterRiverside Methodist Hospital08-19-2024 Telephone encounter Note * Telephone Encounter - Kristofer Calix MD - 12/17/2023 12:52 PM EDT No - sounds like she has some infectious process going on - would rec PCP. [facility]08-19-[facility] Telephone encounter Note* Telephone [...] possible delayed reaction to IV Iron 11/29/23? [facility]08-01-2024 History of Present illness Narrative* Becki Gutierrez RN - 11/29/2023 2:01 PM EDT Y Y documented in this encounterRiverside Methodist Hospital08-01-2024 Telephone encounter Note * Telephone Encounter - Rachael Johnson RN - 11/29/2023 12:45 PM EDT MARSHA Connell, treatment aware of changes. [facility]08-01-2024 Miscellaneous Notes* Telephone Encounter [...] RN * Telephone Encounter - Raissa Aly [facility] - 11/29/2023 12:40 PM EDT A one [...] a different iron formulation. documented in this encounterRiverside Methodist Hospital08-01-2024 Telephone encounter Note * Telephone Encounter - Rachael Johnson RN - 11/29/2023 12:41 PM EDT Spoke with pt. She will obtain Pepcid OTC from our retail pharmacy on arrival to take (1) 20 mg tablet. She is aware and agreeable to IV steroid for infusion as well. Rachael Johnson RN [facility]08-01-2024 Telephone encounter Note* Telephone Encounter - Raissa Aly RP - 11/29/2023 12:40 PM EDT A one time dose of dexamethasone is safe when . I added 8mg to the plan for your review. Please adjust dose if necessary. Thanks, Raissa Aly RPh [facility] Work Phone: [phone]) 641-283808-01-2024 Telephone encounter Note* Telephone Encounter - Raissa Aly RPh - 11/29/2023 12:34 PM EDT Famotidine is safe when . Do we want to administer the venofer slower? What rate? Thanks, Raissa Aly [facility]08-01-2024 Telephone encounter Note* Telephone Encounter - Rachael Johnson RN - 11/29/2023 11:56 AM EDT Called and discussed with pt. She is and cannot take Benadryl. She is reluctant to take Pepcid. Attempted to call retail, infusion pharmacy and [facility], no answer, to ask safety of pepcid in . Pharm/Fely: please advise Rachael Johnson, RN [facility]08-01-2024 Telephone encounter Note* Telephone [...] have to choose a different iron formulation. [facility]07-18-2024 History of Present illness Narrative* Alison Linares RN - 11/15/2023 1:42 PM EDT Pt reports having nausea and lightheadedness this morning. She has seen her pcp regarding these symptoms and is being worked up to figure out the cause. documented in this encounterRiverside Methodist Hospital07-18-2024 Telephone encounter Note * Telephone Encounter - Evelyn Sanabria - 11/15/2023 9:19 AM EDT 1st report of treatment-Non oncology regimen (Venofer) Patient holds Medicaid coverage and there isno available FA at this time. [facility]07-18-2024 Miscellaneous Notes* Telephone Encounter - Evelyn Sanabria - 11/15/2023 9:19 AM EDT 1st report of treatment-Non oncology regimen (Venofer) Patient holds Medicaid coverage and there isno available FA at this time. documented in this encounterRiverside Methodist Hospital07-12-2024 Hospital Discharge instructions Patient Education [...] your hypoglycemia. Where to find more information [place] [employer]: www.diabetes.org National [place] of Diabetes and Digestive and Kidney Diseases: [...] provider. Document Revised: 03/17/2021 Document Reviewed: 03/17/2021 [employer]aid Patient Education 2022 [employer]. 11/09/2023 15:56:06 Prediabetes Prediabetes Prediabetes is when [...] hard liquor (44 mL). General instructions Take wrag-owe-pagwlgt and prescription medicines only as told by [...] is important. Where to find more information [place] [employer]: www.diabetes.org Academy of Nutrition and Dietetics: www.eatright.org [place] [employer]: www.heart.org Contact a health care [...] provider. Document Revised: 07/15/2020 Document Reviewed: 07/15/2020 [employer]aid Patient Education 2022 [employer]. 11/09/2023 15:56:02 Palpitations Palpitations Palpitations are feelings [...] ask your health careprovider. General instructions Take ffbf-pyi-kkngmmp and prescription medicines only as told by [...] provider. Document Revised: 09/07/2021 Document Reviewed: 09/07/2021 [employer]aid Patient Education 2022 [employer]. 11/09/2023 15:55:58 Fatigue Fatigue If you have [...] Follow these instructions at home: Medicines Take yzmh-alx-qfiymav and prescription medicines only as told by [...] the National Suicide Prevention Lifeline at or 363. This is open 24 hours a day. Text the Crisis Text Line at 393568. Summary If you have fatigue, you feel [...] provider. Document Revised: 02/06/2022 Document Reviewed: 02/06/2022 [employer]aid Patient Education 2022 [employer]. Follow Up Care 11/08/2023 11:31:43 With:PRAVEEN RESENDEZ FAAFP, CHRIS Perez, PED Address: [address], [facility] [place] [address]- When: Unknown [facility] 07-12-2024 NotePatient Education Emergency [...] health care provider. General instructions ? Take wveu-ngi-gahemyg and prescription medicines only as told by [...] provider. Document Revised: 09/07/2021 Document Reviewed: 09/07/2021 [employer] Patient Education ? 2022 [employer] Endocrinology Preventing Hypoglycemia Hypoglycemia occurs when [...] Mild hypoglycemia may not (more content not included)...[facility]07-12-2024 History of Present illness Narrative* Tamiko Krueger LSW - 11/09/2023 9:27 AM EDT Patient appears on the [facility] First Time Treatment List for a non-oncology treatment. No psychosocial assessment is indicated. KRISTOPHER Huerta [facility] Telephone encounter Note * Telephone Encounter - Rachael Johnson RN - 11/06/2023 8:24 AM EDT Pt informed of [employer]'s message and denies any questions, needs or concerns at this time. She will call PCP for additional workup of palpitations, should the IV iron not help, or they worsen. Discussed reasons for immediate evaluation; chest pain, shortness of breath, lightheadedness, dizziness, etc. Appointments verified. Rachael Johnson RN [facility]07[facility] Miscellaneous Notes* Telephone Encounter [...] MD Sent: 11/05/2023 11:33 AM EDT To: [facility] Triage Pool; [facility] Clerical Pool Perry Isidro - looks like you need Iron again. Dr. Middleton Cancel her virtual set for 11/05 and 11/19 - infuse 3 doses weekly iron and then see her in 8 weeks inperson - labs same day. Thanks! documented in this encounterR[facility]07-08-[facility]24 Telephone encounter Note * Telephone [...] get you feeling better. Sumit, Dr. Middleton [facility]07-08-[facility]24 Telephone encounter Note* Telephone [...] is on a blood thinner. Roberta Haskins [facility]07-08-[facility]24 Telephone encounter Note* Telephone Encounter - Roberta Haskins - 11/05/2023 12:47 PM EDT Appointment tomorrow cancelled. Andres tried calling her this morning and was unable to get a hold ofher. Will keep trying patient to schedule for Iron. Roberta Haskins [facility]07-08-[facility] Telephone encounter Note* Telephone Encounter - Roberta Haskins - 11/05/2023 12:47 PM EDT ----- Message from Rachael Johnson RN sent at 11/05/2023 11:53 AM EDT ----- ----- Message ----- From: Kristofer Calix MD Sent: 11/05/2023 11:33 AM EDT To: [facility] Triage Pool; [facility] Clerical Pool Perry Sanna - looks like you need Iron again. Dr. Middleton Cancel her virtual set for 11/05 and 11/19 - infuse 3 doses weekly iron and then see her in 8 weeks inperson - labs same day. Thanks! [facility] Hospital Discharge instructions Patient [...] specializes in ear, nose, and throat disorders (events traffic controller, or ENT) for more tests and treatment. [...] (rhinoplasty). Follow these instructions at home: Take wewn-xvs-tjxtazb and prescription medicines only as told by [...] specializes in ear, nose, and throat disorders (events traffic controller, or ENT) for more tests and treatment. This information is not intended to replace advice given to you by your health care provider. Make sure you discuss any questions you have with your health care provider. Document Revised: 12/12/2021 Document Reviewed: 12/12/2021 [employer] Patient Education 2022 [employer] 10/23/2023 17:12:52 Nasal Polyps Nasal Polyps [...] instructions at home: Medicines Take or use bmmm-joo-upjwtcm and prescription medicines only as told by [...] provider. Document Revised: 04/05/2022 Document Reviewed: 04/05/2022 [employer] Patient Education 2022 [employer]. 10/23/2023 17:12:52 Nasal Polypectomy Nasal Polypectomy Nasal [...] including vitamins, herbs, eye drops, creams, and dpks-ikr-fahxthh medicines. Any problems you or family members [...] provider tells you to take them. Taking vdlg-oal-wgnkezm medicines, vitamins, herbs, and supplements. General instructions [...] provider. Document Revised: 04/05/2022 Document Reviewed: 04/05/2022 [employer] Patient Education 2022 [employer]. 10/23/2023 17:12:46 BMI for Adults BMI for [...] numbers. This can be done either in [place] (U.S[place] or metric measurements. Note that charts and online BMI calculators are available to help you find your BMI quickly and easily without having to do these calculations yourself. To calculate your BMI in Finnish (U.S.) measurements: 1.Measure your weight in pounds [...] Centers for Disease Control and Prevention: www.cdc.gov [place] Heart Association: www.heart.org National Heart, Lung, and Blood [place]: www.nhlbi.nih.gov Summary Body mass index (BMI) is a number that is calculated from a person's weight and height. BMI may help estimate how much of a person's weight is composed of fat. BMI can help identify thosewho may be at higher risk for certain medical problems. BMI can be measured using Finnish measurements or metric measurements. BMI charts are used to identify whether you are underweight, normal weight, overweight, or obese. This information is not intended to replace advice given to you by your health care provider. Make sure you discuss any questions you have with your health care provider. Document Revised: 01/07/2020 Document Reviewed: 11/14/2019 [employer] Patient Education 2022 [employer]. Follow Up Care 10/23/2023 08:49:41 With:Shirlene YEBOAH, Lourdes Baltazar Address: [address] [place] [address] [place], [place] [address]- When: only if needed [facility] 05-31-2024 Hospital Discharge instructions [...] Follow these instructions at home: Medicines Take msjx-rpf-dtnvrcw and prescription medicines only as told by [...] Watch your condition for any changes. Take edpb-eut-gobidyc and prescription medicines only as told by [...] provider. Document Revised: 06/04/2020 Document Reviewed: 08/25/2019 [employer] Patient Education 2022 [employer]. Follow Up Care 09/28/2023 18:22:59 With:Penelope CASAS Address: [address] [place] [address] Business (1) When:Within 3 Day(s) [facility]05-31-2024 Hospital Discharge instructions Patient Education 09/28/2023 [...] numbers. This can be done either in Finnish (U.S.) or metric measurements. Note that charts and online BMI calculators are available to help you find your BMI quickly and easily without having to do these calculations yourself. To calculate your BMI in Finnish ([place].S.) measurements: 1.Measure your weight in pounds [...] Centers for Disease Control and Prevention: www.cdc.gov [place] Heart Association: www.heart.org National Heart, Lung, and Blood [place]: www.nhlbi.nih.gov Summary Body mass index (BMI) is a number that is calculated from a person's weight and height. BMI may help estimate how much of a person's weight is composed of fat. BMI can help identify thosewho may be at higher risk for certain medical problems. BMI can be measured using Finnish measurements or metric measurements. BMI charts are used to identify whether you are underweight, normal weight, overweight, or obese. This information is not intended to replace advice given to you by your health care provider. Make sure you discuss any questions you have with your health care provider. Document Revised: 01/07/2020 Document Reviewed: 11/14/2019 [employer] Patient Education 2022 [employer]. 09/28/2023 18:24:42 Hypertension, Adult, Gqhe-gi-Jftz Hypertension, Adult Hypertension is another name for [...] doctor. Keep all follow-up visits. Medicines Take lgsd-jim-lhbvakp and prescription medicines only as told by [...] provider. Document Revised: 02/02/2022 Document Reviewed: 02/02/2022 [employer] Patient Education 2022 [employer]. 09/28/2023 18:24:32 Abdominal Pain, Adult, Rgcz-mm-Bact Abdominal Pain, Adult Many things can cause belly (abdominal) pain. Most times, belly pain is not dangerous. Many cases of belly pain can be watched and treated at home. Sometimes, though, belly pain is serious. Your doctor will try to find the cause of your belly pain. Follow these instructions at home: Medicines Take gkwk-vng-epnzxgd and prescription medicines only as told by [...] your belly pain for any changes. Take mcrd-tgq-fstttio and prescription medicines only as told by [...] provider. Document Revised: 08/25/2019 Document Reviewed: 08/25/2019 [employer] Patient Education 2022 [employer]. Follow Up Care 09/28/2023 16:11:11 With:Emergency room Address: When: only if needed Comments:Patient was instructed to contact emergency room for any worsening abdominal pain, concerns, or complications. [facility] [phone] Evaluation + Plan noteExtracted from:Title: ED NoteAuthor:Fe [...] Open Future Scheduled Tests Laboratory* HgbA1c 08/03/23 [facility]05-30-2024 Telephone encounter Note* Telephone Encounter - Roberta Haskins - 09/27/2023 4:38 PM EDT Attempt has been made x2 to reschedule patient. She did not have labs drawn. Roberta Haskins [facility]05-30[facility] Miscellaneous Notes* Telephone Encounter - Roberta Haskins - 09/27/2023 4:38 PM EDT Attempt has been made x2 to reschedule patient. She did not have labs drawn. Roberta Haskins documented in this encounterR[facility]05-29-[facility]24 History of Present illness Narrative* Kristofer Calix MD - 09/26/2023 9:11 AM EDT Did not have labs done to prep for this visit - reschedule. Kristofer Calix MD documented in this encounterR[facility]04-[facility]24 Hospital Discharge instructions Patient Education [...] health care provider or diet and nutrition associate (dietitian). This may include: ?Eating fewer calories. [...] provider. Document Revised: 06/12/2021 Document Reviewed: 06/12/2021 [employer] Patient Education 2022 [employer]. Follow Up Care 02/15/2023 10:07:52 With:PRAVEEN RESENDEZ FAAFP, CHRIS Perez, PED Address: [address] [place], [place] [address] [address]- When:Within 4 Month(s) [facility] 04-05-2024 Evaluation + Plan note Future Scheduled Tests Laboratory* HgbA1c 08/03/23 Radiology* CT Soft Tissue Neck w/ Contrast 11/12/23 [facility] 02-22-2024 Hospital Discharge instructions [...] or if there is an kennedy for I AM AT. Most glucose meters store a record of [...] mayhave. Where to find more information The [place] Diabetes Association: www.diabetes.org The Association of Diabetes [...] provider. Document Revised: 01/12/2021 Document Reviewed: 01/12/2021 [employer] Patient Education 2022 [employer]. 06/21/2023 06:07:34 Preventing Iron Deficiency Anemia, Adult [...] iron. Foods high in vitamin C include: ?Shiro fruits, such as tai, oranges, and grapefruits. [...] iron supplement is right for you. Take vttm-kjw-tresuxn and prescription medicines only as told by your health care provider. Keep all follow-up visits. Where to find more information Learn more about preventing iron deficiency from: National Heart, Lung, and Blood [place]: www.nhlbi.nih.gov [place] Society of Hematology: www.hematology.org Contact a health [...] provider. Document Revised: 05/24/2022 Document Reviewed: 05/24/2022 [employer] Patient Education 2022 [employer]. 06/21/2023 06:07:28 BMI for Adults BMI for [...] numbers. This can be done either in Finnish (U.S.) or metric measurements. Note that charts and online BMI calculators are available to help you find your BMI quickly and easily without having to do these calculations yourself. To calculate your BMI in Finnish (U.S.) measurements: 1.Measure your weight in pounds [...] Centers for Disease Control and Prevention: www.cdc.gov [place] Heart Association: www.heart.org National Heart, Lung, and Blood [place]: www.nhlbi.nih.gov Summary Body mass index (BMI) is a number that is calculated from a person's weight and height. BMI may help estimate how much of a person's weight is composed of fat. BMI can help identify thosewho may be at higher risk for certain medical problems. BMI can be measured using Finnish measurements or metric measurements. BMI charts are used to identify whether you are underweight, normal weight, overweight, or obese. This information is not intended to replace advice given to you by your health care provider. Make sure you discuss any questions you have with your health care provider. Document Revised: 01/07/2020 Document Reviewed: 11/14/2019 [employer] Patient Education 2022 [employer]. Follow Up Care 06/19/2023 13:39:56 With:PRAVEEN RESENDEZ FAAFP, CHRIS Perez, PED Address: [address] [place] [address] [place] [address]- When: Unknown [facility] 02-20-2024 Miscellaneous Notes* Telephone [...] lab results Roberta Haskins documented in this encounterR[facility]02-16-2024 Instructions* Patient Instructions* Nathaly Carney [...] TSH, Calcium with CMP documented in this encounterRiverside [facility] Hospital02-16-2024 Nurse Note* Serina Horton MA [...] exercise. Serina Dawson MA documented in this encounterRivers[facility]02-16-2024 History of Present illness Narrative* Kristofer Calix MD - 06/15/2023 2:00 PM EST Images from the original note were not included. NAME: Sanna Rendon CLINIC NO.: [id number] DATE OF SERVICE: June 15, 2023 ([place]) [...] later in 2018. These were found in [place], [place]. I don't have access to these [...] a target-like rash shortly before presenting to [facility] in 2016 with headaches and was [...] Monge soon. When she hada stoke in [place], she had symptoms up to a month [...] and stayed on Lovenox Hgb 13.1 [place] [facility] [place]commended ER if persisting bleeding but she [...] and at age 69. Both lived in [facility] but she was adopted. She was not able to see ID in October and will be seeing Dr. Baugh next week. Also will have her see Dr. Hamlin for her clotting disorder and make any other recommendations to optimize her treatment. Updated Visit, October 08, 2020: Telephone only Received call from pt stating she was seen in [facility] for numbness in her chest, throat, and extremities, and sob which has been worsening over the last week. We arranged a telephone visit for her chanw questions with me. Sanna Rendon is a 34 year old female seen for Hypercoagulable state and recent concerns and symptoms that required her to be seen at [facility]. She went to the ER with Gradual worsening of breathing after progressive tingling of fingers and legs. She currently remains very fatigued even though she is sleeping well. Now recalls that before her stroke she remembers having a bull's eye rash and was seen with severe headaches in [facility] was found to have a [...] a root canal and was sent to [facility] for MRI which was negative but non-contrasted. [...] history goes back to January [address] [facility] where she had persisting headaches and slurred speech followed by lower extremity weakness. This took a few months to resolve and she is back to her normal state of being but some point in time during her her next she was seen by Dr. Humera Hyde in [place] as well and was found to have [...] which included preparing to see the patient, xitj-vd-hmff patient care, completing clinical documentation, performing a medically appropriate examination, counseling and educating the patient/family/caregiver, ordering medications, tests, or p rocedures, independently interpreting results (not separately reported), communicating results to the patient/family/caregiver, and care coordination (not separately reported). Kristofer Calix MD, CPE Hematology and Oncology Services Provided at: [place], [place] Scribe Attestation: This note was scribed [...] under my direction. CC: MD Wilton Day, [address] [place] [address] Humaira Gaviria MD [address] [place] [id number] MD Cosmo Kingston MD Michael Blank, MD documented in this encounterCleveland [id number] Miscellaneous Notes* Telephone Encounter - Ebony Redding Ma - 06/11/2023 10:43 AM EST Labs for appointment on 06/15. Ebony Redding Ma documented in this encounterRiverside [facility] Hospital02-12-2024 Miscellaneous Notes* Telephone Encounter - [...] check the status of this appointment. Nicol Salgaod * Telephone Encounter - Valeri Moscoso - [...] since she was last seen by him. [facility] [address], [place] B[place], Please fax records Andres, Please follow up on this appt. Thank you documented in this encounterRiverside [facility] Hospital02-01-2024 History of Present illness Narrative* Kristofer Calix MD - 05/31/2023 4:30 PM EST Images from the original note were not included. NAME: Sanna Rendon CLINIC NO.: [id number] DATE OF SERVICE: May 31, 2023 ([place]) Some elements in this clinic note that are critical to medical decision making have been carefully reviewed and included from a prior clinic note dated: March 19, 2023 ([place]) Additional Clinicians involved in Sanna Rendon's care: Drs. Herrmann, Jorge Monge, Humaira Gaviria, VIRTUAL VISIT PROGRESS NOTE This is a virtual visit using [employer] Zoom Video Visit. It required patient- provider interaction for the medical decision making as documented below. I have communicated my name and active licensure. The patient's identity and physical location wereverified at the time of this visit. Either the patient or their legal customer engagement representative has been informed of the risks and benefits of -- and alternatives to -- treatment through a remote evaluation andconsents to proceed with the evaluation remotely. CC: hypercoag state. ASSESSMENT: 37 year old woman 25 weeks presents with a prior history of CVA in 2016 and anantiphospholipid antibody that was identified much later in 2018. These were found in [place], [place]. I don't have access to these [...] a target-like rash shortly before presenting to [facility] in 2016 with headaches and was [...] and stayed on Lovenox Hgb 13.1 @ [facility] Recommended ER if persisting bleeding but she [...] and at age 69. Both lived in [facility] but she was adopted. She was not able to see ID in October and will be seeing Dr. Baugh next week. Also will have her see Dr. Hamlin for her clotting disorder and make any other recommendations to optimize her treatment. Updated Visit, October 08, 2020: Telephone only Received call from pt stating she was seen in [facility] for numbness in her chest, throat, and extremities, and sob which has been worsening over the last week. We arranged a telephone visit for her chanw questions with me. Sanna Rendon is a 34 year old female seen for Hypercoagulable state and recent concerns and symptoms that required her to be seen at [facility]. She went to the ER with Gradual worsening of breathing after progressive tingling of fingers and legs. She currently remains very fatigued even though she is sleeping well. Now recalls that before her stroke she remembers having a bull's eye rash and was seen with severe headaches in [place], [place] - was found to have a [...] a root canal and was sent to [facility] [place] MRI which was negative but non-contrasted. [...] history goes back to January [address] [facility] where she had persisting headaches and slurred speech followed by lower extremity weakness. This took a few months to resolve and she is back to her normal state of being but some point in time during her her next she was seen by Dr. Humera Hyde in [place] as well and was found to have [...] CPE Hematology and Oncology Services Provided at: [place], [place] CC: MD Wilton Day, [address] [place] [address] Humaira Gaviria MD [address] [place] [id number] MD Cosmo Kingston MD Michael Blank, MD documented in this encounterRiverside Methodist Hospital02-01-2024 Instructions* Patient Instructions* Kristofer Calix [...] TSH, Calcium with CMP documented in this encounterRiverside [facility] Hospital01-26-2024 Hospital Discharge instructions Patient Education [...] your ears completely after. General instructions Take xxvc-mpu-mnyrbqo and prescription medicines only as told by [...] provider. Document Revised: 06/27/2021 Document Reviewed: 06/27/2021 [employer] Patient Education 2022 [employer]. 05/25/2023 12:02:06 Dyshidrotic Eczema Dyshidrotic Eczema Dyshidrotic [...] care provider who specializes in skin conditions (inbound call center representative) tohelp diagnose and treat this condition. [...] locks in moisture. Medicines Take and apply fxgo-ypa-ufrckug and prescription medicines only as told by [...] provider. Document Revised: 01/24/2021 Document Reviewed: 01/24/2021 [employer] Patient Education 2022 [employer]. 05/25/2023 12:02:02 Allergies, Adult, Gddr-zp-Lzpl Allergies, Adult An allergy means that your [...] instructions at home: Medicines Take or apply neah-pjm-yhwhnrd and prescription medicines only as told by [...] to the hospital. Summary Take or apply xvmc-igo-xrpztwz and prescription medicines only as told by [...] provider. Document Revised: 02/25/2020 Document Reviewed: 02/25/2020 [employer] Patient Education 2022 [employer]. Follow Up Care 05/21/2023 12:21:27 With:PRAVEEN RESENDEZ FAAFP, CHRIS Perez, PED Address: [address] [place] [id number] When:Within 2 Month(s) [facility] 11-20-2023 History of Present illness Narrative* Kristofer Calix MD - 03/19/2023 4:45 PM EST Images from the original note were not included. NAME: Sanna Rendon CLINIC NO.: [id number] DATE OF SERVICE: March 19, 2023 ([place]) [...] visit. Either the patient or their legal customer engagement representative has been informed of the risks and benefits of -- and alternatives to -- treatment through a remote evaluation andconsents to proceed with the evaluation remotely. CC: hypercoag state. ASSESSMENT: 37 year old woman 25 weeks presents with a prior history of CVA in 2016 and anantiphospholipid antibody that was identified much later in 2018. These were found in [place], [place]. I don't have access to these [...] a target-like rash shortly before presenting to [facility] in 2016 with headaches and was [...] and stayed on Lovenox Hgb 13.1 @ [facility] Recommended ER if persisting bleeding but she [...] and at age 69. Both lived in [place], [place] - but she was adopted. She was not able to see ID in October and will be seeing Dr. Baugh next week. Also will have her see Dr. Hamlin for her clotting disorder and make any other recommendations to optimize her treatment. Updated Visit, October 08, 2020: Telephone only Received call from pt stating she was seen in [facility] for numbness in her chest, throat, and extremities, and sob which has been worsening over the last week. We arranged a telephone visit for her franci questions with me. Sanna Rendon is a 34 year old female seen for Hypercoagulable state and recent concerns and symptoms that required her to be seen at [facility]. She went to the ER with Gradual worsening of breathing after progressive tingling of fingers and legs. She currently remains very fatigued even though she is sleeping well. Now recalls that before her stroke she remembers having a bull's eye rash and was seen with severe headaches in [place], [place] - was found to have a [...] a root canal and was sent to [facility] [place] MRI which was negative but non-contrasted. [...] history goes back to January [address] [facility] where she had persisting headaches and slurred speech followed by lower extremity weakness. This took a few months to resolve and she is back to her normal state of being but some point in time during her her next she was seen by Dr. Humera Hyde in [place] as well and was found to have [...] CPE Hematology and Oncology Services Provided at: [place], [place] CC: MD Wilton Day, [address] [place] [address] Humaira Gaviria MD [address] [facility] [address] MD Cosmo Kingston MD Michael Blank, MD documented in this encounterRivers[facility]11-20-2023 Instructions* Patient Instructions* Kristofer Calix MD - 03/19/2023 4:44 PM EST Continue Lovenox - patient prefers 40 mg (rather than rec 80mg) Take B12 supplement in the form of a sublingual tablet. Take Vitamin D3 5000 international unit(s) daily Check labs in 8 weeks Phone / Virtual call after documented in this encounterRiverside [facility]10-19-2023 Hospital Discharge instructions Patient Education 02/15/2023 10:13:08 Ear Drops, Adult, Zljp-zo-Lvxm Ear Drops, Adult Your doctor has found [...] cannot use soap and water, use hand head rose grower. 2.Make sure your ears are clean and [...] you cannot use soapand water, use hand head rose grower. Follow these instructions at home: Use the [...] provider. Document Revised: 02/11/2020 Document Reviewed: 02/11/2020 Plaid Patient Education 2022 [employer]. 02/15/2023 10:13:05 Otitis Externa, Putq-rp-Wqpw Otitis Externa Otitis externa is an infection [...] if you start to feel better. Take jusd-hwv-xkewqct and prescription medicines only as told by [...] provider. Document Revised: 06/29/2021 Document Reviewed: 06/29/2021 Plaid Patient Education 2022 [employer]. Follow Up Care 02/14/2023 12:28:12 With:PRAVEEN RESENDEZ FAAFP, CHRIS Perez, PED Address: [address] [place], [place] [id number] When:Within 2 Month(s) [facility] 08-25-2023 Hospital Discharge instructions [...] including vitamins, herbs, eye drops, creams, and jxel-igw-uwfnwkw medicines. ?Whether you are or may be [...] provider. Document Revised: 12/28/2021 Document Reviewed: 11/19/2020 Plaid Patient Education 2022 [employer]. 12/22/2022 15:19:23 Fatigue Fatigue If you have [...] Follow these instructions at home: Medicines Take ajos-sjk-wnukumo and prescription medicines only as told by [...] the National Suicide Prevention Lifeline at or 978. This is open 24 hours a day. Text the Crisis Text Line at 629903. Summary If you have fatigue, you feel [...] provider. Document Revised: 02/06/2022 Document Reviewed: 02/06/2022 Plaid Patient Education 2022 [employer]. Follow Up Care 12/22/2022 10:22:02 With:Lourdes Urrutia Address: [address] [place] [address], [facility] [place] [address]- When: only if needed [facility] 08-25-2023 Instructions* Patient Instructions* Kristofer Calix MD - 12/22/2022 10:13 AM EDT Continue Lovenox - patient prefers 40 mg (rather than rec 80mg) Take B12 supplement in the form of a sublingual tablet. Take Vitamin D3 5000 international unit(s) daily Check labs in 8 weeks Phone / Virtual call after documented in this encounterRiverside Methodist Hospital08-25-2023 History of Present illness Narrative* Kristofer Calix MD - 12/22/2022 9:55 AM EDT Images from the original note were not included. Kristofer Calix MD NAME: Sanna Rendon CLINIC NO.: [id number] DATE OF SERVICE: December 22, 2022 (Levon) [...] visit. Either the patient or their legal customer engagement representative has been informed of the risks and benefits of -- and alternatives to -- treatment through a remote evaluation andconsents to proceed with the evaluation remotely. CC: hypercoag state. ASSESSMENT: 37 year old woman with a prior history of CVA in 2016 and an antiphospholipid antibody that was identified much later in 2018. These were found in [place], [place]. I don't have access to these [...] a target-like rash shortly before presenting to [facility] in 2016 with headaches and was [...] and stayed on Lovenox Hgb 13.1 @ [facility] Recommended ER if persisting bleeding but she [...] and at age 69. Both lived in [facility] but she was adopted. She was not able to see ID in October and will be seeing Dr. Baugh next week. Also will have her see Dr. Hamlin for her clotting disorder and make any other recommendations to optimize her treatment. Updated Visit, October 08, 2020: Telephone only Received call from pt stating she was seen in [facility] for numbness in her chest, throat, and extremities, and sob which has been worsening over the last week. We arranged a telephone visit for her toreview questions with me. Sanna Rendon is a 34 year old female seen for Hypercoagulable state and recent concerns and symptoms that required her to be seen at [facility]. She went to the ER with Gradual worsening of breathing after progressive tingling of fingers and legs. She currently remains very fatigued even though she is sleeping well. Now recalls that before her stroke she remembers having a bull's eye rash and was seen with severe headaches in [place], [place] - was found to have a [...] a root canal and was sent to [facility] for MRI which was negative but non-contrasted. [...] history goes back to January [address] [facility] where she had persisting headaches and slurred speech followed by lower extremity weakness. This took a few months to resolve and she is back to her normal state of being but some point in time during her her next she was seen by Dr. Humera Hyde in [place] as well and was found to have [...] CPE Hematology and Oncology Services Provided at: [place], [place] CC: [facility], [address] [place] [address] Humaira Gaviria MD [address] [place] [address] MD Cosmo Kingston MD Michael Blank, MD documented in this encounterRiverside [facility] Hospital08-16-2023 Miscellaneous Notes* Telephone Encounter - [...] later time. Roberta Haskins documented in this encounterRiverside Methodist Hospital06-23-2023 Hospital Discharge instructions Patient Education [...] health care provider or diet and nutrition associate (dietitian). This may include: ?Eating fewer calories. [...] provider. Document Revised: 06/12/2021 Document Reviewed: 06/12/2021 Plaid Patient Education 2022 [employer]. 10/20/2022 10:37:18 Preventing Type 2 Diabetes Mellitus [...] a registered dietitian. This diet and nutrition associate can help you make a healthy eating plan and help you understand portion sizes and food labels. Where to find support Ask your health care provider to recommend a registered dietitian, a certified diabetes care and adult education manager, or a weight loss program. Look for local or online weight loss groups. Join a gym, fitness club, or outdoor activity group, such as a walking club. Where to find more information For help and guidance and to learn more about diabetes and diabetes prevention, visit: [place] Diabetes Association (ADA): www.diabetes.org National [place] of Diabetes and Digestive and Kidney Diseases: www.niddk.nih.gov To learn more about healthy eating, visit: U.S. Department of Agriculture (Accuradio): www.Neocoretechplate.gov Office of Disease Prevention and Health Promotion [...] provider. Document Revised: 07/11/2021 Document Reviewed: 07/11/2021 Plaid Patient Education 2022 [employer]. 10/20/2022 10:37:17 Preventing Hypoglycemia Preventing Hypoglycemia Hypoglycemia [...] your hypoglycemia. Where to find more information [place] Diabetes Association: www.diabetes.org National [place] of Diabetes and Digestive and Kidney Diseases: [...] provider. Document Revised: 03/17/2021 Document Reviewed: 03/17/2021 Plaid Patient Education 2022 [employer]. 10/20/2022 10:37:16 Gestational Diabetes Mellitus, Diagnosis, Lfph-mw-Flfu Gestational Diabetes Mellitus, Diagnosis Gestational diabetes mellitus [...] follow-up visits. Where to find more information [place] Diabetes Association (ADA): diabetes.org Association of Diabetes Care & Education Specialists (ADCES): diabeteseducator.org Centers for Disease Control and Prevention (CDC): cdc.gov [place] Association: americanpregnancy.org U.S. Department of Agriculture MyPlate: [...] provider. Document Revised: 09/20/2020 Document Reviewed: 09/20/2020 Plaid Patient Education 2022 Elsevier Inc. Follow Up Care 09/19/2022 14:47:09 With:PRAVEEN RESENDEZ FAAFP, Penelope Tony, CHRIS, PED Address: [place] [address]- When:Within 3 Month(s) [facility] 06-01-2023 History of Present illness Narrative* Kristofer Calix MD - 09/28/2022 5:00 PM EDT Images from the original note were not included. Kristofer Calix MD NAME: Sanna Rendon CLINIC NO.: [id number] DATE OF SERVICE: September 28, 2022 (Levon) [...] visit. Either the patient or their legal customer engagement representative has been informed of the risks and benefits of -- and alternatives to -- treatment through a remote evaluation andconsents to proceed with the evaluation remotely. CC: hypercoag state. ASSESSMENT: 36 year old woman 25 weeks presents with a prior history of CVA in 2016 and anantiphospholipid antibody that was identified much later in 2018. These were found in [place], [place]. I don't have access to these [...] a target-like rash shortly before presenting to [facility] in 2016 with headaches and was [...] and stayed on Lovenox Hgb 13.1 @ [facility] Recommended ER if persisting bleeding but she [...] and at age 69. Both lived in [place], [place] - but she was adopted. She was not able to see ID in October and will be seeing Dr. Baugh next week. Also will have her see Dr. Hamlin for her clotting disorder and make any other recommendations to optimize her treatment. Updated Visit, October 08, 2020: Telephone only Received call from pt stating she was seen in [facility] for numbness in her chest, throat, and extremities, and sob which has been worsening over the last week. We arranged a telephone visit for her franci questions with me. Sanna Rendon is a 34 year old female seen for Hypercoagulable state and recent concerns and symptoms that required her to be seen at [facility]. She went to the ER with Gradual worsening of breathing after progressive tingling of fingers and legs. She currently remains very fatigued even though she is sleeping well. Now recalls that before her stroke she remembers having a bull's eye rash and was seen with severe headaches in [place], [place] - was found to have a [...] a root canal and was sent to [facility] for MRI which was negative but non-contrasted. [...] history goes back to January [address] [facility] where she had persisting headaches and slurred speech followed by lower extremity weakness. This took a few months to resolve and she is back to her normal state of being but some point in time during her her next she was seen by Dr. Humera Hyde in [place] as well and was found to have [...] CPE Hematology and Oncology Services Provided at: [place], [place] CC: MD Wilton Day, [address] [place] [place] [address] Humaira Gaviria MD [address] [place] [address] [place] [address] MD Cosmo Kingston MD Michael Blank, MD documented in this encounterRiverside [facility] Hospital05-24-2023 Miscellaneous Notes* Telephone Encounter - Cheri Acharya Sec - 09/20/2022 7:06 AM EDT Cxed appt * Telephone Encounter - Valeri Yeung RN - 09/19/2022 3:29 PM EDT Patient would like to have labs drawn at [facility]. Called [facility] lab to get fax number. Lab orders faxed to [phone] Valeri Yeung RN PSS: Can you cancel lab appointment for 09/21/22 here. Thanks. Valeri Yeung RN documented in this encounterRiverside [facility] Hospital04-04-2023 Instructions* Patient Instructions* Kristofer Calix MD - 08/01/2022 10:56 AM EDT Continue Lovenox - patient prefers 40 mg (rather than rec 80mg) 8 weeks - labs Phone / Virtual call after documented in this encounterRiverside Methodist Hospital03-30-2023 History of Present illness Narrative* Kristofer Calix MD - 07/27/2022 1:18 PM EDT NAME: Sanna Rendon CLINIC NO.: [id number] DATE OF SERVICE: July 27, 2022 (Levon) [...] later in 2018. These were found in [place], [place]. I don't have access to these [...] a target-like rash shortly before presenting to [facility] in 2016 with headaches and was [...] and at age 69. Both lived in [facility] but she was adopted. She was not able to see ID in October and will be seeing Dr. Baugh next week. Also will have her see Dr. Hamlin for her clotting disorder and make any other recommendations to optimize her treatment. Updated Visit, October 08, 2020: Telephone only Received call from pt stating she was seen in [facility] for numbness in her chest, throat, and extremities, and sob which has been worsening over the last week. We arranged a telephone visit for her toreview questions with me. Sanna Rendon is a 34 year old female seen for Hypercoagulable state and recent concerns and symptoms that required her to be seen at [facility]. She went to the ER with Gradual worsening of breathing after progressive tingling of fingers and legs. She currently remains very fatigued even though she is sleeping well. Now recalls that before her stroke she remembers having a bull's eye rash and was seen with severe headaches in [facility] was found to have a [...] a root canal and was sent to [facility] for MRI which was negative but non-contrasted. [...] history goes back to January [address] [facility] where she had persisting headaches and slurred speech followed by lower extremity weakness. This took a few months to resolve and she is back to her normal state of being but some point in time during her her next she was seen by Dr. Humera Hyde in [place] as well and was found to have [...] which included preparing to see the patient, qbqn-gv-dopz patient care, completing clinical documentation, obtaining and/or reviewing separately obtained history, performing a medically appropriate examination, counseling and educating the pat ient/family/caregiver, ordering medications, tests, or procedures, independently interpreting results (not separately reported), and care coordination (not separately reported). Kristofer Calix MD, CPE Hematology and Oncology Services Provided at: [place], [place] CC: MD Wilton Day, [address] [place] [address] Humaira Gaviria MD [address] [place] [id number] MD Cosmo Kingston MD Michael Blank, MD documented in this encounterRiverside [facility] Hospital12-07-2022 History of Present illness Narrative* [...] to standard infusion rate. documented in this encounterRiverside Methodist Hospital12-06-2022 Miscellaneous Notes* Telephone Encounter - [...] appt. All questions answered. Pt transferred to vest front presser at her request so she can reschedule dates of IV iron d/t otherappts. FELY: Pt would like to have Venofer ordered and not get Monoferric even if approved. Please place orders if agreeable. Meme Gonzalez RN documented in this encounterRiverside Methodist Hospital12-01-2022 Miscellaneous Notes* Telephone Encounter - Roberta [...] were not included. Kristofer Calix MD P [facility] Triage Pool; P [facility] Clerical Pool She needs iron MUNIRA - if monoferric isn't approved, lets get her in weekly for Venna for. * Telephone Encounter - Roberta Haskins - 03/27/2022 2:57 PM EST 2. Consider IV iron a. Triage nurse to please call iron results when available this week documented in this encounterRiverside Methodist Hospital11-28-2022 Instructions* Patient Instructions* Kristofer Calix MD - 03/27/2022 2:51 PM EST Continue Lovenox - patient prefers 40 mg (rather than rec 80mg) Consider IV iron Triage nurse to please call iron results when available this week Will recheck antiphospholipid antibodies as ordered and every 6 months. RTC in 8 weeks - labs same day. documented in this encounterRiverside Methodist Hospital11-28-2022 History of Present illness Narrative* Kristofer Calix MD - 03/27/2022 2:15 PM EST Images from the original note were not included. NAME: Sanna Rendon CLINIC NO.: [id number] DATE OF SERVICE: March 27, 2022 (Levon) [...] later in 2018. These were found in [place], [place]. I don't have access to these [...] a target-like rash shortly before presenting to [facility] in 2016 with headaches and was [...] and at age 69. Both lived in [place], [place] - but she was adopted. She was not able to see ID in October and will be seeing Dr. Baugh next week. Also will have her see Dr. Hamlin for her clotting disorder and make any other recommendations to optimize her treatment. Updated Visit, October 08, 2020: Telephone only Received call from pt stating she was seen in [facility] for numbness in her chest, throat, and extremities, and sob which has been worsening over the last week. We arranged a telephone visit for her toreview questions with me. Sanna Rendon is a 34 year old female seen for Hypercoagulable state and recent concerns and symptoms that required her to be seen at [facility]. She went to the ER with Gradual worsening of breathing after progressive tingling of fingers and legs. She currently remains very fatigued even though she is sleeping well. Now recalls that before her stroke she remembers having a bull's eye rash and was seen with severe headaches in [place], [place] - was found to have a [...] a root canal and was sent to [facility] for MRI which was negative but non-contrasted. [...] history goes back to January [address] [facility] where she had persisting headaches and slurred speech followed by lower extremity weakness. This took a few months to resolve and she is back to her normal state of being but some point in time during her her next she was seen by Dr. Humera Hyde in [place] as well and was found to have [...] which included preparing to see the patient, okbm-sy-brix patient care, completing clinical documentation, obtaining and/or reviewing separately obtained history, performing a medically appropriate examination, counseling and educating the pat ient/family/caregiver, ordering medications, tests, or procedures, independently interpreting results (not separately reported), and care coordination (not separately reported). Kristofer Calix MD, CPE Hematology and Oncology Services Provided at: [place], [place] CC: MD Wilton Day, DO [address] [facility] [place] [address] Humaira Gaviria MD [address] [facility] [place] [address] MD Cosmo Kingston MD Michael Blank, MD documented in this encounterRiverside Methodist Hospital10-03-2022 Instructions* Patient Instructions* Kristofer Calix MD - 01/30/2022 12:[address] Hamlin's expertise and will prescribe Lovenox - patient prefers 40 mg (rather than rec 80mg) Will recheck antiphospholipid antibodies as ordered and every 6 months. RTC in 8 weeks - labs same day. documented in this encounterRiverside Methodist Hospital10-03-2022 History of Present illness Narrative* Kristofer Calix MD - 01/30/2022 11:59 AM EDT Images from the original note were not included. NAME: Sanna Rendon CLINIC NO.: [id number] DATE OF SERVICE: January 30, 2022 Some [...] later in 2018. These were found in [place], [place]. I don't have access to these [...] a target-like rash shortly before presenting to [facility] in 2016 with headaches and was [...] and at age 69. Both lived in [place], [place] - but she was adopted. She was not able to see ID in October and will be seeing Dr. Baugh next week. Also will have her see Dr. Hamlin for her clotting disorder and make any other recommendations to optimize her treatment. Updated Visit, October 08, 2020: Telephone only Received call from pt stating she was seen in [facility] for numbness in her chest, throat, and extremities, and sob which has been worsening over the last week. We arranged a telephone visit for her toreview questions with me. Sanna Rendon is a 34 year old female seen for Hypercoagulable state and recent concerns and symptoms that required her to be seen at [facility]. She went to the ER with Gradual worsening of breathing after progressive tingling of fingers and legs. She currently remains very fatigued even though she is sleeping well. Now recalls that before her stroke she remembers having a bull's eye rash and was seen with severe headaches in [place] - was found to have a [...] a root canal and was sent to [facility] for MRI which was negative but non-contrasted. [...] history goes back to January [address] [facility] where she had persisting headaches and slurred speech followed by lower extremity weakness. This took a few months to resolve and she is back to her normal state of being but some point in time during her her next she was seen by Dr. Humera Hyde in [place] as well and was found to have [...] which included preparing to see the patient, jjmk-ho-vivu patient care, completing clinical documentation, obtaining and/or reviewing separately obtained history, performing a medically appropriate examination, counseling and educating the pat ient/family/caregiver, and ordering medications, tests, or procedures. Kristofer Calix MD, CPE [facility] [place], [place] CC: MD Wilton Day, [address] [place] [address] Humaira Gaviria MD [address] [place] [id number] MD Cosmo Kingston MD Michael Blank, MD documented in this encounterRiverside Methodist Hospital10-03-2022 Nurse Note* Serina Dawson MA - 01/30/2022 11:55 AM EDT Patient states she may be diagnosed with gestational diabetes, she was from 215 to 52 a couple hours later after eating wheat cereal. She sees OB tomorrow. Serina Dawson MA documented in this encounterRiverside Methodist Hospital09-02-2022 Miscellaneous Notes* Telephone Encounter - Tonja Pope RN - 12/30/2021 10:15 AM EDT Call received from Sanna requesting refill of Lovenox 40 mg to be sent to [facility] in [place]. FELY: Please review and approve if you agree. Tonja Chery RN documented in this encounterRiverside Methodist Hospital06-13-2022 Miscellaneous Notes* Telephone Encounter - Meme Easton RN - 10/10/2021 12:15 PM EDT Received call from pt requesting refill of Lovenox 40 mg to be sent to [facility] in [place]. FELY: Pt also states she had one episode of blood in her stool which was dripping blood which concerned her. She is not ready to move to 80 mg of Lovenox at this time. Order pending. Please review and sign if agreeable. Meme Easton RN documented in this encounterRiverside Methodist Hospital05-10-2022 Miscellaneous Notes* Telephone Encounter - [...] agreeable. Meme Easton RN documented in this encounterRiverside Methodist Hospital05-09-2022 Miscellaneous Notes* Telephone Encounter - [...] advise. Meme Easton RN documented in this encounterRiverside Methodist Hospital04-25-2022 Miscellaneous Notes* Telephone Encounter - [...] Thoughts? Meme Easton RN documented in this encounterRiverside Methodist Hospital04-22-2022 Hospital Discharge instructions Patient Education [...] including vitamins, herbs, eye drops, creams, and tupp-wve-gzzeunl medicines. ?Whether you are or may be [...] 02/11/2008 Document Revised: 08/05/2019 Document Reviewed: 02/18/2018 Plaid Patient Education 2020 [employer]. 08/19/2021 13:02:21 Dysuria Dysuria Dysuria is pain [...] alcohol may irritate the prostate. Medicines Take sxoh-fms-lpfkylr and prescription medicines only as told by [...] 01/12/2005 Document Revised: 03/29/2018 Document Reviewed: 01/31/2018 Plaid Patient Education 2020 [employer]. 08/19/2021 13:02:17 Budget-Friendly Healthy Eating Budget-Friendly Healthy [...] frozen fruits, and frozen vegetables. Avoid buying [id number]-sz-bhd foods, such as pre-cut fruits and vegetables and pre-made salads. If possible, shop around to discover where you can find the best prices. Consider other retailers such as [employer] stores, larger wholesale stores, local fruit and vegetable [employer], and [employer] markets. Do not shop when you are [...] 12/18/2014 Document Revised: 04/17/2018 Document Reviewed: 04/17/2018 [employer] Patient Education 2020 [employer] 08/19/2021 13:02:15 BMI for Adults BMI [...] height. This can be done either in [place] ([place] or metric measurements. Note that charts are available to help you find your BMI quickly and easily without having to do these calculations yourself. To calculate your BMI in [place] ([place] measurements, your health care provider will: [...] medical problems. BMI can be measured using Finnish measurements or metric measurements. To interpret your [...] 12/26/2004 Document Revised: 03/29/2018 Document Reviewed: 02/27/2018 [employer] Patient Education 2020 [employer] 08/19/2021 13:02:11 Paresthesia Paresthesia Paresthesia is an [...] fried or sweet foods. General instructions Take [id number] and prescription medicines only as told by [...] 04/06/2003 Document Revised: 05/12/2019 Document Reviewed: 04/25/2018 [employer] Patient Education 2020 [employer]. Follow Up Care 08/19/2021 09:17:52 With:PRAVEEN RESENDEZ FAAFP, CHRIS Perez, PED Address: [address] [place] [address], [facility] [place] [address]- When:1 to 2 weeks [facility] [place] 04-22-2022 Evaluation + Plan note Future Scheduled Tests Radiology* XR Spine Lumbosacral Minimum 4 Views 08/19/21 [facility]04-07-2022 Miscellaneous Notes* Telephone Encounter - Roberta Haskins - 08/04/2021 3:36 PM EDT Patient is scheduled for 09/[address] Elliott. Roberta Haskins * Telephone Encounter - Roberta Haskins - 08/01/2021 1:05 PM EDT Sent Email to [facility] to refer patient back to Dr. Cosmo Elliott Dx: Primary hypercoagulable state (HCC) [facility]askins [facility]* Ebony Redding Ma - 08/01/2021 12:48 PM EDT UA ran as ordered. Ebony Redding Ma [facility] Evaluation + Plan note Future Appointments Appointment Date:07/25/2024 02:30:00 PM Scheduled Provider: Location:[facility] Appointment Type:CV EKG (FT) Appointment Date:07/25/2024 03:00:00 PM Scheduled Provider: Location:.[facility] Appointment Type:CV Holter/Event (FT) Appointment Date:09/09/2024 08:20:00 AM Scheduled Provider:Penelope CASAS DO, FAAFP Location:[facility] Appointment Type:FM Open Future Scheduled Tests Laboratory* HgbA1c 08/05/24 * HgbA1c 11/04/24 Radiology* CT Soft Tissue Neck w/ Contrast 11/12/23 [facility] [id number] Evaluation + Plan note Future Appointments Appointment [...] CT Soft Tissue Neck w/ Contrast 11/12/23 [facility] Evaluation + Plan note Future Appointments Appointment Date:11/08/2021 12:40:00 PM Scheduled Provider:Penelope CASAS DO, FAAFP Location:[facility] Appointment Type:FM Open Future Scheduled Tests Radiology* XR Spine Lumbosacral Minimum 4 Views 08/19/21 [facility] [place] Evaluation + Plan note Future Appointments Appointment Date:11/08/2021 12:40:00 PM Scheduled Provider:Penelope CASAS DO, FAAFP Location:[facility] Appointment Type: Open Diagnostic Tests Pending * Urine Culture 08/19/21 Future Scheduled Tests Radiology* XR Spine Lumbosacral Minimum 4 Views [facility]19[facility] Appointments Appointment Date:09/21/2022 10:00:00 AM Scheduled Provider:Penelope CASAS DO, FAAFP [facility] Future Appointments Appointment Date:10/20/2022 09:40:00 AM Scheduled Provider:Penelope CASAS DO, FAAFP [facility] Future Appointments Appointment Date:01/26/2023 10:40:00 AM Scheduled Provider:Penelope CASAS DO, FAAFP Location:[facility] Appointment Type:[facility] evaluation + Plan note Future Appointments Appointment Date:04/17/2023 02:20:00 PM Scheduled Provider:Penelope CASAS DO, FAAFP Location:[facility] Appointment Type: Open Future Scheduled Tests Laboratory* HgbA1c 02/15/23 * Thyroid Stimulating Hormone 02/15/23 * Thyroid Stimulating Hormone 01/11/23 [facility] Evaluation + Plan note Future Appointments Appointment Date:07/24/2023 01:20:00 PM Scheduled Provider:Penelope CASAS DO, FAAFP Location:[facility] Appointment Type: Open Future Scheduled Tests Laboratory* HgbA1c 02/15/23 * Thyroid Stimulating Hormone 02/15/23 [facility] Future Appointments Appointment Date:07/24/2023 01:20:00 PM Scheduled Provider:Penelope CASAS DO, FAAFP Location:[facility] Appointment Type:[facility] evaluation + Plan note Future Appointments Appointment Date:12/03/2023 12:40:00 PM Scheduled Provider:Penelope CASAS DO, FAAFP Location:[facility] Appointment Type:FM Open Future Scheduled Tests Laboratory* HgbA1c 08/03/23 [facility] evaluation + Plan note [...] MRI Orbit Face Neck w/o contrast 11/09/23 [facility] Evaluation + Plan note Future Appointments Appointment Date:01/11/2024 08:15:00 PM Scheduled Provider: Location:.SLEEP LAB_ Appointment Type:[facility] Sleep Study PSG () Appointment Date:01/29/2024 01:20:00 PM Scheduled Provider:Penelope CASAS DO, FAAFP Location:[facility] Appointment Type: Open Diagnostic Tests Pending * Cortisol 12/06/23 * T3 Free 12/06/23 Future Scheduled Tests Laboratory* HgbA1c 08/03/23 Radiology* CT Soft Tissue Neck w/ Contrast 11/12/23 [facility] Evaluation + Plan note Future [...] CT Soft Tissue Neck w/ Contrast 11/12/23 [facility] evaluation + Plan note Future Appointments Appointment Date:05/16/2024 11:40:00 AM Scheduled Provider:Penelope CASAS DO, FAAFP Location:[facility] Appointment Type:FM Open Future Scheduled Tests Laboratory* HgbA1c 05/07/24 * HgbA1c 08/05/24 * HgbA1c 11/04/24 Radiology* CT Soft Tissue Neck w/ Contrast 11/12/23 [facility] evaluation + Plan note Future Appointments Appointment Date:05/16/2024 11:40:00 AM Scheduled Provider:Penelope CASAS DO, FAAFP Location:[facility] Appointment Type:FM Open Diagnostic Tests Pending * HIV Screen 4th Generation wRfx 02/23/24 Future Scheduled Tests Laboratory* HgbA1c 05/07/24 * HgbA1c 08/05/24 * HgbA1c 11/04/24 Radiology* CT Soft Tissue Neck w/ Contrast 11/12/23 [facility] evaluation + Plan note Future Appointments Appointment Date:05/16/2024 11:40:00 AM Scheduled Provider:Penelope CASAS DO, FAAFP Location:[facility] Appointment Type:FM Open Future Scheduled Tests Laboratory* HgbA1c 08/05/24 * HgbA1c 11/04/24 Radiology* CT Soft Tissue Neck w/ Contrast 11/12/23 [facility] evaluation + Plan note Future Appointments Appointment Date:05/16/2024 11:40:00 AM Scheduled Provider:Penelope CASAS DO, FAAFP Location:[facility] Appointment Type:FM Open Diagnostic Tests Pending * Urine Culture 03/01/24 Future Scheduled Tests Laboratory* HgbA1c 08/05/24 * HgbA1c 11/04/24 Radiology* CT Soft Tissue Neck w/ Contrast 11/12/23 [facility] evaluation + Plan note Future Appointments Appointment Date:07/07/2024 02:20:00 PM Scheduled Provider:Penelope CASAS DO, FAAFP Location:[facility] Appointment Type:FM Open Future Scheduled Tests Laboratory* HgbA1c 08/05/24 * HgbA1c 11/04/24 Radiology* CT Soft Tissue Neck w/ Contrast 11/12/23 [facility] Evaluation + Plan note Future Appointments Appointment Date:09/09/2024 08:20:00 AM Scheduled Provider:Penelope CASAS DO, FAAFP Location:[facility] Appointment Type: Open Future Scheduled Tests Laboratory* HgbA1c 08/05/24 * HgbA1c 11/04/24 Radiology* CT Soft Tissue Neck w/ Contrast 11/12/23 [facility] Evaluation note* Diagnosis Infective urethritis- Primary Urethritis, unspecified [facility] Diagnosis Primary hypercoagulable state (HCC) Primary hypercoagulable state CVA, old, speech/language deficit Speech and language deficit, unspecified, 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 Hyposmolality and/or hyponatremia [facility] Diagnosis Primary hypercoagulable state (HCC) [...] episode of care [facility] Diagnosis Primary hypercoagulable state (HCC) Primary hypercoagulable state CVA, old, speech/language deficit Speech and language deficit, unspecified, 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 Hyposmolality and/or hyponatremia [facility] 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 Iron deficiency anemia of Anemia of mother, complicating , childbirth, or the puerperium, unspecified as to episode of care [facility]* Diagnosis Primary hypercoagulable state (HCC) Primary hypercoagulable state CVA, old, speech/language deficit Speech and language deficit, unspecified, 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 Hyposmolality and/or hyponatremia [facility]* Diagnosis Primary hypercoagulable state (HCC)- Primary Primary hypercoagulable state 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, old, speech/language deficit Speech and language deficit, unspecified, late effect of cerebrovascular disease [facility]* Diagnosis Primary hypercoagulable state (HCC) Primary hypercoagulable state CVA, old, speech/language deficit Speech and language deficit, unspecified, 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 Hyposmolality and/or hyponatremia [facility]* Diagnosis Primary hypercoagulable state (HCC)- Primary Primary hypercoagulable state Iron deficiency anemia of Anemia of mother, complicating , childbirth, or the puerperium, unspecified as to episode of care Iron deficiency anemia secondary to blood loss (chronic) Vitamin D deficiency Unspecified vitamin D deficiency [facility]* Diagnosis Primary hypercoagulable state (HCC)- Primary Primary hypercoagulable state Iron deficiency anemia secondary to blood loss (chronic) Vitamin D deficiency Unspecified vitamin D deficiency CVA, old, speech/language deficit Speech and language deficit, unspecified, late effect of cerebrovascular disease Antiphospholipid antibody syndrome (HCC) Primary hypercoagulable state [facility]* Diagnosis Primary hypercoagulable state (HCC)- Primary Primary hypercoagulable state CVA, old, speech/language deficit Speech and language deficit, unspecified, late effect of cerebrovascular disease Hypercalcemia Vitamin D deficiency Unspecified vitamin D deficiency Iron deficiency anemia secondary to blood loss (chronic) Malaise and fatigue Other malaise and fatigue [facility]* Diagnosis Vitamin D deficiency- Primary Unspecified vitamin D deficiency 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) Antiphospholipid antibody syndrome (HCC) Primary hypercoagulable state Malaise and fatigue Other malaise and fatigue [facility]* Diagnosis Vitamin D deficiency- Primary Unspecified vitamin D deficiency 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) [facility]* 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 [facility]* Diagnosis Iron deficiency anemia of - Primary Anemia of mother, complicating , childbirth, or the puerperium, unspecified as to episode of care Iron deficiency anemia secondary to blood loss (chronic) [facility]* Diagnosis Iron deficiency anemia of - Primary Anemia of mother, complicating , childbirth, or the puerperium, unspecified as to episode of care Iron deficiency anemia secondary to blood loss (chronic) [facility]* 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 Vitamin D deficiency Unspecified vitamin D deficiency Malaise and fatigue Other malaise and fatigue [facility]* Diagnosis Primary hypercoagulable state (HCC) Primary hypercoagulable state CVA, old, speech/language deficit Speech and language deficit, unspecified, 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 Hyposmolality and/or hyponatremia [facility]* Diagnosis Missed menses , unspecified gestational age Encounter for supervision of normal first in first trimester Hypothyroidism (acquired) ([facility]/HCC) Unspecified hypothyroidism Low vitamin D level 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 Diagnosis Vaginal bleeding Other specified noninflammatory disorder of vagina Dizziness Dizziness and giddiness Abnormal TSH Vaginal discharge Leukorrhea, not specified as infective Pelvic pain in female Unspecified symptom associated with female genital organs [facility]* Diagnosis Irregular menstrual cycle [facility]* Diagnosis Primary hypercoagulable state (HCC) Primary hypercoagulable state CVA, old, speech/language deficit Speech and language deficit, unspecified, 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 Hyposmolality and/or hyponatremia documented in this encounter [facility] note* Diagnosis Antiphospholipid antibody positive- Primary Other and unspecified nonspecific immunological findings Iron deficiency anemia secondary to blood loss (chronic) Malaise and fatigue Other malaise and fatigue Vitamin D deficiency Unspecified vitamin D deficiency [facility]* Diagnosis Amenorrhea Absence of menstruation Missed menses , unspecified gestational age Encounter for supervision of normal first in first trimester Thyroid disease (CMS/HCC) Unspecified disorder of thyroid [facility]* Diagnosis Gestational diabetes mellitus (GDM), antepartum, gestational diabetes method of control unspecified- Primary [facility] Diagnosis Primary hypercoagulable state (HCC) Primary hypercoagulable state CVA, old, speech/language deficit Speech and language deficit, unspecified, 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 Hyposmolality and/or hyponatremia documented in this encounter [facility] note* Diagnosis Primary hypercoagulable state (HCC)- Primary Primary hypercoagulable state CVA, old, speech/language deficit Speech and language deficit, unspecified, 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 Hyposmolality and/or hyponatremia Personal history of TIA (transient ischemic attack) Transient ischemic attack (TIA), and cerebral infarction without residual deficits [facility]* Diagnosis Second trimester (HHS-HCC) state, incidental 13 weeks gestation of ([facility]) Thyroid disease Unspecified disorder of thyroid Multigravida of advanced maternal age in second trimester ([facility]) Gestational diabetes mellitus (GDM), antepartum, gestational diabetes method of control unspecified([facility]) Elevated glucose tolerance test Impaired glucose tolerance test documented in this encounter [facility]* Diagnosis Gestational diabetes mellitus (GDM), antepartum, gestational diabetes method of control unspecified- Primary [facility] Diagnosis Second trimester ([facility]) state, incidental 16 weeks gestation of ([facility]) Screening, , for anatomic survey ([facility]) Encounter for anatomic survey Vaginal discharge Leukorrhea, not specified as infective Sinus headache Headache [facility] Diagnosis Insulin controlled gestational diabetes mellitus (GDM) in second trimester- Primary [facility] Diagnosis 19 weeks gestation of ([facility]) Second trimester ([facility]) state, incidental Thyroid disease Unspecified disorder of thyroid Multigravida of advanced maternal age in second trimester ([facility]) Gestational diabetes mellitus (GDM), antepartum, gestational diabetes method of control unspecified([facility]) documented in this encounter [facility] HealthcareEvaluation note* Diagnosis Gestational diabetes mellitus (GDM) in second trimester controlled on oral hypoglycemic drug- Primary [facility]* Diagnosis Antiphospholipid antibody positive- Primary Other and unspecified nonspecific immunological findings Iron deficiency anemia secondary to blood loss (chronic) Vitamin D deficiency Unspecified vitamin D deficiency Primary hypercoagulable state (HCC) Primary hypercoagulable state [facility] Diagnosis Gestational diabetes mellitus (GDM) in second trimester controlled on oral hypoglycemic drug- Primary [facility]* Diagnosis Multigravida of advanced maternal age in second trimester- Primary Antiphospholipid syndrome complicating , antepartum Gestational diabetes mellitus (GDM) in second trimester controlled on oral hypoglycemic drug Insulin controlled gestational diabetes mellitus (GDM) in second trimester AMA (advanced maternal age) multigravida 35+, second trimester Hypothyroidism, unspecified type [facility] Diagnosis 22 weeks gestation of [...] Hyposmolality and/or hyponatremia [facility]* Diagnosis Multigravida of [...] Hyposmolality and/or hyponatremia documented [facility]* Diagnosis Second trimester (HHS-HCC) state, incidental 23 weeks gestation of ([facility]) Thyroid disease Unspecified disorder of thyroid Gestational diabetes mellitus (GDM), antepartum, gestational diabetes method of control unspecified([facility]) Multigravida of advanced maternal age in second trimester (HHS-HCC) H/O loss Lightheaded Dizziness and giddiness Dizziness Dizziness and giddiness documented in this encounter [facility] HealthcareEvaluation note* Diagnosis Antiphospholipid syndrome- Primary Primary hypercoagulable state documented [facility]* Diagnosis Gestational diabetes mellitus (GDM) in second trimester controlled on oral hypoglycemic drug- Primary Antiphospholipid syndrome Primary hypercoagulable state Other specified hypothyroidism Antiphospholipid syndrome complicating , antepartum documented [facility]* Diagnosis Second trimester (HHS-HCC) state, incidental 25 weeks gestation of (HHS-HCC) Gestational diabetes mellitus (GDM), antepartum, gestational diabetes method of control unspecified([facility]) Anticoagulant long-term use Encounter for long-term (current) [...] defect, unspecified (HHS-HCC) documented in this encounter [facility]* Diagnosis Antiphospholipid syndrome- Primary Primary hypercoagulable state Antiphospholipid syndrome complicating , antepartum History of CVA (cerebrovascular accident) Transient ischemic attack (TIA), and cerebral infarction without residual deficits Coordination of complex care 29 weeks gestation of [facility] Diagnosis Third trimester (HHS-HCC) state, incidental 30 weeks gestation of (HHS-HCC) documented in this encounter [facility] HealthcareHospital course Narrative No data available for this section [facility] Discharge instructions No data available for this section [facility]ructionsNot on filedocumented in this encounter [...] be sent through Care Everywhere. * Preeclampsia (Finnish) documented in this encounterProU[facility] SystemInstructionsNot on file documented in this encounterProEast [facility] SystemInstructionsNot on file documented in this encounterPro[facility] SystemInstructionsNot on file documented in this encounterPro[facility] SystemInstructionsNot on file documented in this encounterPro[facility] SystemInstructions* Attachments The following attachments cannot be sent through Care Everywhere. * Preeclampsia (Finnish) documented in this encounterPro[facility] SystemInstructionsNot on file documented in this encounterProEast [place] [facility] SystemInstructionsNot on file documented in this encounterProEast Liverpool City Hospital SystemProgress note No data available for this section [facility] HospitalReason for referral (narrative) , pt reported hx of nasal polyps and deviated septum but never had surgery done Referred by: Lourdes Urrutia [facility] Reason for visit Narrative* Consultation (Urgent) - Pending ReviewSpecialtyDiagnoses / ProceduresReferred By ContactReferred To ContactRheumatology Diagnoses 22 weeks gestation of Antiphospholipid syndrome complicating , antepartum Mukul Noyola MD [address] [address] Phone: tel: fax: Sam Callahan MD [facility] [address] [place] [phone] Phone: tel: fax: Referral IDStatusReasonStart DateExpiration DateVisits RequestedVisits [id number] Review Specialty Services Required [facility] Summary Purpose Family History No [...] a 30 minute post dose observation. Rate/Dose Inqxbc0904/05/2022 2:44 PM QEH018.67 mL/tvWzkrafrky33/07/2022 2:25 PM NKN083 mL/hrNew Bag/Syringe/Jlqpts4604/05/2022 1:52 PM BUW603 mg166.67 mL/hr Medication OrderMAR ActionAction DateDoseRateSite iron sucrose 300 mg in NaCl 0.9% 250 mL (VENOFER) 300 mg, INTRAVENOUS, at 166.67 mL/hr, Administer over 90 Minutes, ONCE, 1 dose, On Sun04/20/22 at 1400, Please conduct a 30 minute post dose observation. New Bag/Syringe/Ijnfnd7304/20/2022 2:01 PM FVS167 mg166.67 mL/hr Additional Source Comments INFORMATION SOURCE (unrecogn ized section and content) DATE CREATED AUTHOR 10/22/2017 [facility] DATE CREATED AUTHOR AUTHOR'S ORGANIZ ATION 11/14/2017 [employer] DATE CREATED AUTHOR AUTHOR'S ORGANIZ ATION 06/18/2018 [facility] DATE CREATED AUTHOR AUTHOR'S ORGANIZ ATION 12/30/2021 [facility] DATE CREATED AUTHOR AUTHOR'S ORGANIZ ATION 06/09/2022 [facility] DATE CREATED AUTHOR AUTHOR'S ORGANIZ ATION 09/29/2023 [facility] DATE CREATED AUTHOR AUTHOR'S ORGANIZ ATION 12/03/2023 [facility] DATE CREATED AUTHOR AUTHOR'S ORGANIZ ATION 12/09/2023 [facility] DATE CREATED AUTHOR AUTHOR'S ORGANIZ ATION 12/10/2023 [facility] DATE CREATED AUTHOR AUTHOR'S ORGANIZ ATION 01/27/2024 [facility] DATE CREATED AUTHOR AUTHOR'S ORGANIZ ATION 02/24/2024 [facility] DATE CREATED AUTHOR AUTHOR'S ORGANIZ ATION 02/26/2024 [facility] DATE CREATED AUTHOR AUTHOR'S ORGANIZ ATION 02/28/2024 [facility] DATE CREATED AUTHOR AUTHOR'S ORGANIZ ATION 03/02/2024 [facility] DATE CREATED AUTHOR AUTHOR'S ORGANIZ ATION 03/03/2024 [facility] DATE CREATED AUTHOR AUTHOR'S ORGANIZ ATION 05/15/2024 [facility] DATE CREATED AUTHOR AUTHOR'S ORGANIZ ATION 05/17/2024 [facility] DATE CREATED AUTHOR AUTHOR'S ORGANIZ ATION 05/18/2024 [facility] DATE CREATED AUTHOR AUTHOR'S ORGANIZ ATION 05/19/2024 [facility] DATE CREATED AUTHOR AUTHOR'S ORGANIZ ATION 06/11/2024 [facility] DATE CREATED AUTHOR AUTHOR'S ORGANIZ ATION 06/17/2024 [facility] DATE CREATED AUTHOR AUTHOR'S ORGANIZ ATION 07/09/2024 [facility] DATE CREATED AUTHOR AUTHOR'S ORGANIZ ATION 07/12/2024 [facility] DATE CREATED AUTHOR AUTHOR'S ORGANIZ ATION 07/15/2024 [facility] DATE CREATED AUTHOR AUTHOR'S ORGANIZ ATION 08/24/2024 [facility] DATE CREATED AUTHOR AUTHOR'S ORGANIZ ATION 08/26/2024 [facility] DATE CREATED AUTHOR AUTHOR'S ORGANIZ ATION 09/01/2024 [facility] DATE CREATED AUTHOR AUTHOR'S ORGANIZ ATION 09/08/2024 [facility] DATE CREATED AUTHOR AUTHOR'S ORGANIZ ATION 09/11/2024 [facility] DATE CREATED AUTHOR AUTHOR'S ORGANIZ ATION 12/09/2024 [facility] DATE CREATED AUTHOR AUTHOR'S ORGANIZ ATION 01/18/2025 [facility] DATE CREATED AUTHOR AUTHOR'S ORGANIZ ATION 02/07/2025 [facility] DATE CREATED AUTHOR AUTHOR'S ORGANIZ ATION 02/13/2025 [facility] DATE CREATED AUTHOR AUTHOR'S ORGANIZ ATION 02/17/2025 [facility] DATE CREATED AUTHOR AUTHOR'S ORGANIZ ATION 03/03/2025 [facility] DATE CREATED AUTHOR AUTHOR'S ORGANIZ ATION 03/11/2025 [facility] EPIC Source Comments (unrecognize d section and content) In the event this informatio n is protected by the Federal Confidentiality of Alcohol and Drug Abuse Patient Records regulations: The Federal rules restrict any use of the information to criminally investigate or prosecute any alcohol or drug abuse patient.[facility] HospitalIn the event this information is protected by the Federal Confidentiality of Alcohol and Drug Abuse Patient Records regulations: The Federal rules restrict any use of the information to criminally investigate or prosecute any alcohol or drug abuse patient.[facility] HospitalIn the event this information is protected by the Federal Confidentiality of Alcohol and Drug Abuse Patient Records regulations: The Federal rules restrict any use of the information to criminally investigate or prosecute any alcohol or drug abuse patient.[facility] HospitalIn the event this information is protected by the Federal Confidentiality of Alcohol and Drug Abuse Patient Records regulations: The Federal rules restrict any use of the information to criminally investigate or prosecute any alcohol or drug abuse patient.[facility] HospitalIn the event this information is protected by the Federal Confidentiality of Alcohol and Drug Abuse Patient Records regulations: The Federal rules restrict any use of the information to criminally investigate or prosecute any alcohol or drug abuse patient.[facility] HospitalIn the event this information is protected by the Federal Confidentiality of Alcohol and Drug Abuse Patient Records regulations: The Federal rules restrict any use of the information to criminally investigate or prosecute any alcohol or drug abuse patient.[facility] HospitalIn the event this information is protected by the Federal Confidentiality of Alcohol and Drug Abuse Patient Records regulations: The Federal rules restrict any use of the information to criminally investigate or prosecute any alcohol or drug abuse patient.[facility] HospitalIn the event this information is protected by the Federal Confidentiality of Alcohol and Drug Abuse Patient Records regulations: The Federal rules restrict any use of the information to criminally investigate or prosecute any alcohol or drug abuse patient.[facility] HospitalIn the event this information is protected by the Federal Confidentiality of Alcohol and Drug Abuse Patient Records regulations: The Federal rules restrict any use of the information to criminally investigate or prosecute any alcohol or drug abuse patient.[facility] HospitalIn the event this information is protected by the Federal Confidentiality of Alcohol and Drug Abuse Patient Records regulations: The Federal rules restrict any use of the information to criminally investigate or prosecute any alcohol or drug abuse patient.[facility] HospitalIn the event this information is protected by the Federal Confidentiality of Alcohol and Drug Abuse Patient Records regulations: The Federal rules restrict any use of the information to criminally investigate or prosecute any alcohol or drug abuse patient.[facility] HospitalIn the event this information is protected by the Federal Confidentiality of Alcohol and Drug Abuse Patient Records regulations: The Federal rules restrict any use of the information to criminally investigate or prosecute any alcohol or drug abuse patient.[facility] HospitalIn the event this information is protected by the Federal Confidentiality of Alcohol and Drug Abuse Patient Records regulations: The Federal rules restrict any use of the information to criminally investigate or prosecute any alcohol or drug abuse patient.[facility] HospitalIn the event this information is protected by the Federal Confidentiality of Alcohol and Drug Abuse Patient Records regulations: The Federal rules restrict any use of the information to criminally investigate or prosecute any alcohol or drug abuse patient.[facility] HospitalIn the event this information is protected by the Federal Confidentiality of Alcohol and Drug Abuse Patient Records regulations: The Federal rules restrict any use of the information to criminally investigate or prosecute any alcohol or drug abuse patient.[facility] HospitalIn the event this information is protected by the Federal Confidentiality of Alcohol and Drug Abuse Patient Records regulations: The Federal rules restrict any use of the information to criminally investigate or prosecute any alcohol or drug abuse patient.[facility] HospitalIn the event this information is protected by the Federal Confidentiality of Alcohol and Drug Abuse Patient Records regulations: The Federal rules restrict any use of the information to criminally investigate or prosecute any alcohol or drug abuse patient.[facility] HospitalIn the event this information is protected by the Federal Confidentiality of Alcohol and Drug Abuse Patient Records regulations: The Federal rules restrict any use of the information to criminally investigate or prosecute any alcohol or drug abuse patient.[facility] HospitalIn the event this information is protected by the Federal Confidentiality of Alcohol and Drug Abuse Patient Records regulations: The Federal rules restrict any use of the information to criminally investigate or prosecute any alcohol or drug abuse patient.[facility] HospitalIn the event this information is protected by the Federal Confidentiality of Alcohol and Drug Abuse Patient Records regulations: The Federal rules restrict any use of the information to criminally investigate or prosecute any alcohol or drug abuse patient.[facility] HospitalIn the event this information is protected by the Federal Confidentiality of Alcohol and Drug Abuse Patient Records regulations: The Federal rules restrict any use of the information to criminally investigate or prosecute any alcohol or drug abuse patient.[facility] HospitalIn the event this information is protected by the Federal Confidentiality of Alcohol and Drug Abuse Patient Records regulations: The Federal rules restrict any use of the information to criminally investigate or prosecute any alcohol or drug abuse patient.[facility] HospitalIn the event this information is protected by the Federal Confidentiality of Alcohol and Drug Abuse Patient Records regulations: The Federal rules restrict any use of the information to criminally investigate or prosecute any alcohol or drug abuse patient.[facility] HospitalIn the event this information is protected by the Federal Confidentiality of Alcohol and Drug Abuse Patient Records regulations: The Federal rules restrict any use of the information to criminally investigate or prosecute any alcohol or drug abuse patient.[facility] HospitalIn the event this information is protected by the Federal Confidentiality of Alcohol and Drug Abuse Patient Records regulations: The Federal rules restrict any use of the information to criminally investigate or prosecute any alcohol or drug abuse patient.[facility] HospitalIn the event this information is protected by the Federal Confidentiality of Alcohol and Drug Abuse Patient Records regulations: The Federal rules restrict any use of the information to criminally investigate or prosecute any alcohol or drug abuse patient.[facility] HospitalIn the event this information is protected by the Federal Confidentiality of Alcohol and Drug Abuse Patient Records regulations: The Federal rules restrict any use of the information to criminally investigate or prosecute any alcohol or drug abuse patient.[facility] HospitalIn the event this information is protected by the Federal Confidentiality of Alcohol and Drug Abuse Patient Records regulations: The Federal rules restrict any use of the information to criminally investigate or prosecute any alcohol or drug abuse patient.[facility] HospitalIn the event this information is protected by the Federal Confidentiality of Alcohol and Drug Abuse Patient Records regulations: The Federal rules restrict any use of the information to criminally investigate or prosecute any alcohol or drug abuse patient.[facility] HospitalIn the event this information is protected by the Federal Confidentiality of Alcohol and Drug Abuse Patient Records regulations: The Federal rules restrict any use of the information to criminally investigate or prosecute any alcohol or drug abuse patient.[facility] HospitalIn the event this information is protected by the Federal Confidentiality of Alcohol and Drug Abuse Patient Records regulations: The Federal rules restrict any use of the information to criminally investigate or prosecute any alcohol or drug abuse patient.[facility] HospitalIn the event this information is protected by the Federal Confidentiality of Alcohol and Drug Abuse Patient Records regulations: The Federal rules restrict any use of the information to criminally investigate or prosecute any alcohol or drug abuse patient.[facility] HospitalIn the event this information is protected by the Federal Confidentiality of Alcohol and Drug Abuse Patient Records regulations: The Federal rules restrict any use of the information to criminally investigate or prosecute any alcohol or drug abuse patient.[facility] HospitalIn the event this information is protected by the Federal Confidentiality of Alcohol and Drug Abuse Patient Records regulations: The Federal rules restrict any use of the information to criminally investigate or prosecute any alcohol or drug abuse patient.[facility] HospitalIn the event this information is protected by the Federal Confidentiality of Alcohol and Drug Abuse Patient Records regulations: The Federal rules restrict any use of the information to criminally investigate or prosecute any alcohol or drug abuse patient.[facility] HospitalIn the event this information is protected by the Federal Confidentiality of Alcohol and Drug Abuse Patient Records regulations: The Federal rules restrict any use of the information to criminally investigate or prosecute any alcohol or drug abuse patient.[facility] HospitalIn the event this information is protected by the Federal Confidentiality of Alcohol and Drug Abuse Patient Records regulations: The Federal rules restrict any use of the information to criminally investigate or prosecute any alcohol or drug abuse patient.[facility] HospitalIn the event this information is protected by the Federal Confidentiality of Alcohol and Drug Abuse Patient Records regulations: The Federal rules restrict any use of the information to criminally investigate or prosecute any alcohol or drug abuse patient.[facility] HospitalIn the event this information is protected by the Federal Confidentiality of Alcohol and Drug Abuse Patient Records regulations: The Federal rules restrict any use of the information to criminally investigate or prosecute any alcohol or drug abuse patient.[facility] HospitalIn the event this information is protected by the Federal Confidentiality of Alcohol and Drug Abuse Patient Records regulations: The Federal rules restrict any use of the information to criminally investigate or prosecute any alcohol or drug abuse patient.[facility] HospitalIn the event this information is protected by the Federal Confidentiality of Alcohol and Drug Abuse Patient Records regulations: The Federal rules restrict any use of the information to criminally investigate or prosecute any alcohol or drug abuse patient.[facility] HospitalIn the event this information is protected by the Federal Confidentiality of Alcohol and Drug Abuse Patient Records regulations: The Federal rules restrict any use of the information to criminally investigate or prosecute any alcohol or drug abuse patient.[facility] HospitalIn the event this information is protected by the Federal Confidentiality of Alcohol and Drug Abuse Patient Records regulations: The Federal rules restrict any use of the information to criminally investigate or prosecute any alcohol or drug abuse patient.[facility] HospitalIn the event this information is protected by the Federal Confidentiality of Alcohol and Drug Abuse Patient Records regulations: The Federal rules restrict any use of the information to criminally investigate or prosecute any alcohol or drug abuse patient.[facility] HospitalIn the event this information is protected by the Federal Confidentiality of Alcohol and Drug Abuse Patient Records regulations: The Federal rules restrict any use of the information to criminally investigate or prosecute any alcohol or drug abuse patient.[facility] HospitalIn the event this information is protected by the Federal Confidentiality of Alcohol and Drug Abuse Patient Records regulations: The Federal rules restrict any use of the information to criminally investigate or prosecute any alcohol or drug abuse patient.[facility] HospitalIn the event this information is protected by the Federal Confidentiality of Alcohol and Drug Abuse Patient Records regulations: The Federal rules restrict any use of the information to criminally investigate or prosecute any alcohol or drug abuse patient.[facility] HospitalIn the event this information is protected by the Federal Confidentiality of Alcohol and Drug Abuse Patient Records regulations: The Federal rules restrict any use of the information to criminally investigate or prosecute any alcohol or drug abuse patient.[facility] HospitalIn the event this information is protected by the Federal Confidentiality of Alcohol and Drug Abuse Patient Records regulations: The Federal rules restrict any use of the information to criminally investigate or prosecute any alcohol or drug abuse patient.[facility] HospitalIn the event this information is protected by the Federal Confidentiality of Alcohol and Drug Abuse Patient Records regulations: The Federal rules restrict any use of the information to criminally investigate or prosecute any alcohol or drug abuse patient.[facility] HospitalIn the event this information is protected by the Federal Confidentiality of Alcohol and Drug Abuse Patient Records regulations: The Federal rules restrict any use of the information to criminally investigate or prosecute any alcohol or drug abuse patient.[facility] HospitalIn the event this information is protected by the Federal Confidentiality of Alcohol and Drug Abuse Patient Records regulations: The Federal rules restrict any use of the information to criminally investigate or prosecute any alcohol or drug abuse patient.[facility] HospitalIn the event this information is protected by the Federal Confidentiality of Alcohol and Drug Abuse Patient Records regulations: The Federal rules restrict any use of the information to criminally investigate or prosecute any alcohol or drug abuse patient.[facility] HospitalIn the event this information is protected by the Federal Confidentiality of Alcohol and Drug Abuse Patient Records regulations: The Federal rules restrict any use of the information to criminally investigate or prosecute any alcohol or drug abuse patient.[facility] HospitalIn the event this information is protected by the Federal Confidentiality of Alcohol and Drug Abuse Patient Records regulations: The Federal rules restrict any use of the information to criminally investigate or prosecute any alcohol or drug abuse patient.[facility] Care Teams (unrecognized sec tion and content) Team MemberRelationshipSpecialtyStart DateEnd Date Humaira Gaviria MD [address] [place] [address] PCP - GeneralInternal Medicine07/05/18 Jonny Wilcox MD [address] [place] [address] Primary Staff PhysicianCardiology07/16/18Team MemberRelationshipSpecialtyStart DateEnd Date Humaira Gaviria MD [address] [place] [address] PCP - GeneralInternal Medicine07/05/18 Jonny Wilcox MD [address] [place] [address] Primary Staff PhysicianCardiology07/16/18Team MemberRelationshipSpecialtyStart DateEnd Date Humaira Gaviria MD [address] [place] [address] PCP - GeneralInternal Medicine07/05/18 Jonny Wilcox MD [address] [place] [address] Primary Staff PhysicianCardiology07/16/18Team MemberRelationshipSpecialtyStart DateEnd Date Humaira Gaviria MD [address] [place] [address] PCP - GeneralInternal Medicine07/05/18 Jonny Wilcox MD [address] [place] [address] Primary Staff PhysicianCardiology07/16/18Te MemberRelationshipSpecialtyStart DateEnd Date Humaira Gaviria MD [address] [place] [address] PCP - GeneralInternal Medicine07/05/18 Jonny Wilcox MD [address] [place] [address] Primary Staff PhysicianCardiology07/16/18 [place] [address] [place] [address] PhysicianHematology/Oncology09/14/21 Davida Restrepo, RN [address] [place] [address] Specialty Care CoordinatorHematology/Oncology09/14/21Team MemberRelationship SpecialtyStart DateEnd Date Penelope Casas [address] [place] [address] PCP - GeneralFamily Medicine10/04/20Team MemberRelationshipSpecialtyStart DateEnd Date Humaira Gaviria MD [address] [place] [address] P[facility] - GeneralVer[facility] Centernal Medicine07/05/18 Jonny Wilcox MD [address] [place] [address] Primary Staff PhysicianCardiology07/16/18 [place] [address] [place] [address] PhysicianHematology/Oncology09/14/21 Davida Restrepo, RN [address] [place] [address] Specialty Care CoordinatorHematology/Oncology09/14/21Te MemberRelationship SpecialtyStart DateEnd Date Penelope Casas DO [address] [facility] [place] [address] P[facility] - [facility] Wyewxvhl29/3/22 Jonny Wilcox MD [address] [place] [address] Primary Staff PhysicianCardiology07/16/18 [place] [address] [place] [address] PhysicianHematology/Oncology09/14/21 Davida Restrepo, RN [address] [place] [address] Specialty Care CoordinatorHematology/Oncology09/14/21Te MemberRelationship SpecialtyStart DateEnd Date Penelope Casas, DO [address] [facility] [place] [address] PCP - [facility] Lnjnogzf58/3/22 Jonny Wilcox MD [address] [place] [address] Primary Staff PhysicianCardiology07/16/18 [place] [address] [place] [address] PhysicianHematology/Oncology09/14/21 Davida Restrepo RN [address] [place] [address] Specialty Care CoordinatorHematology/Oncology09/14/21Te MemberRelationship SpecialtyStart DateEnd Date Penelope Casas, DO [address] [place] [address] PCP - [facility] Pwriphww68/3/22 Jonny Wilcox MD [address] [place] [address] Primary Staff PhysicianCardiology07/16/18 [place] [address] [place] [address] PhysicianHematology/Oncology09/14/21 Davida Restrepo, RN [address] [place] [address] Specialty Care CoordinatorHematology/Oncology09/14/21Te MemberRelationship SpecialtyStart DateEnd Date Penelope Casas, DO [address] [place] [address] PCP - GeneralFamily Afcestja73/3/22 Jonny Wilcox MD [address] [place] [address] Primary Staff PhysicianCardiology07/16/18 [place] [address] [place] [address] PhysicianHematology/Oncology09/14/21 Davida Restrepo, RN [address] [place] [address] Specialty Care CoordinatorHematology/Oncology09/14/21Team MemberRelationship SpecialtyStart DateEnd Date Penelope Casas DO [address] [place] [address] PCP - GeneralFamily Vdrmzkmb75/3/22 Jonny Wilcox MD [address] [place] [address] Primary Staff PhysicianCardiology07/16/18 [place] [address] [place] [address] PhysicianHematology/Oncology09/14/21 Davida Restrepo, RN [address] [place] [address] Specialty Care CoordinatorHematology/Oncology09/14/21Team MemberRelationship SpecialtyStart DateEnd Date Penelope Casas DO [address] [place] [address] PCP - GeneralFamily Nhtreekt68/3/22 Jonny Wilcox MD [address] [place] [address] Primary Staff PhysicianCardiology07/16/18 [place] [address] [place] [address] PhysicianHematology/Oncology09/14/21 Davida Restrepo RN [address] [place] [address] Specialty Care CoordinatorHematology/Oncology09/14/21Te MemberRelationship SpecialtyStart DateEnd Date Penelope Casas, DO [address] [place] [address] PCP - GeneralFamily Uplsxukn66/3/22 Jonny Wilcox MD [address] [place] [address] Primary Staff PhysicianCardiology07/16/18 [place] [address] [place] [address] PhysicianHematology/Oncology09/14/21 Davida Restrepo RN [address] [place] [address] Specialty Care CoordinatorHematology/Oncology09/14/21Te MemberRelationship SpecialtyStart DateEnd Date Penelope Casas, DO [address] [place] [address] PCP - Generalmi Ntyvvpjs25/3/22 Jonny Wilcox MD [address] [place] [address] Primary Staff PhysicianCardiology07/16/18 [place] [address] [place] [address] PhysicianHematology/Oncology09/14/21 Davida Restrepo, RN [address] [place], [place] [address] Specialty Care CoordinatorHematology/Oncology09/14/21Team MemberRelationship SpecialtyStart DateEnd Date Penelope Casas DO [address] [place] [address] PCP - GeneralFamily Wfyswhyf39/3/22 Jonny Wilcox MD [address] [place] [address] Primary Staff PhysicianCardiology07/16/18 [place] [address] [place] [address] PhysicianHematology/Oncology09/14/21 Davida Restrepo RN [address] [place] [address] Specialty Care CoordinatorHematology/Oncology09/14/21Te MemberRelationship SpecialtyStart DateEnd Date Penelope Casas DO [address] [place] [address] PCP - Generalmily Qapmuxvj36/3/22 Jonny Wilcox MD [address] [place] [address] Primary Staff PhysicianCardiology07/16/18 [place] [address] [place] [address] PhysicianHematology/Oncology09/14/21 Davida Restrepo, MARSHA [address] [place] [address] Specialty Care CoordinatorHematology/Oncology09/14/21Team MemberRelationship SpecialtyStart DateEnd Date Penelope Casas DO [address] [facility] [place] [address] PCP - Generalmily Fudbussi88/3/22 Jonny Wilcox MD [address] [place] [address] Primary Staff PhysicianCardiology07/16/18 [place] [address] [place] [address] PhysicianHematology/Oncology09/14/21 Davida Restrepo, RN [address] [place] [address] Specialty Care CoordinatorHematology/Oncology09/14/21Team MemberRelationship SpecialtyStart DateEnd Date Penelope Casas DO [address] [facility] [place] [address] PCP - Generalmily Apwenefp89/3/22 Jonny Wilcox MD [address] [place] [address] Primary Staff PhysicianCardiology07/16/18 [place] [address] [place] [address] PhysicianHematology/Oncology09/14/21 Davida Restrepo, RN [address] [place] [address] Specialty Care CoordinatorHematology/Oncology09/14/21Team MemberRelationship SpecialtyStart DateEnd Date Penelope Casas DO [address] [facility] [place] [address] PCP - GeneralFamily Fxjrnxwp89/3/22 Jonny Wilcox MD [address] [place] [address] Primary Staff PhysicianCardiology07/16/18 [place] [address] [place] [address] PhysicianHematology/Oncology09/14/21 Davida Restrepo, MARSHA [address] [place] [address] Specialty Care CoordinatorHematology/Oncology09/14/21Team MemberRelationship SpecialtyStart DateEnd Date Penelope Casas DO [address] [facility] [place] [address] PCP - Generalmily Cgirqeix68/3/22 Jonny Wilcox MD [address] [place] [address] Primary Staff PhysicianCardiology07/16/18 [place] [address] [place] [address] PhysicianHematology/Oncology09/14/21 Davida Restrepo RN [address] [facility] [place] [address] Specialty Care CoordinatorHematology/Oncology09/14/21Team MemberRelationship SpecialtyStart DateEnd Date Penelope Cassa DO [address] [place] [address] PCP - GeneralFamily Xalikpnl01/3/22 Jonny Wilcox MD [address] [facility] [place] [address] Primary Staff PhysicianCardiology07/16/18 [place] [address] [place] [address] PhysicianHematology/Oncology09/14/21 Davida Restrepo RN [address] [facility] [place] [address] Specialty Care CoordinatorHematology/Oncology09/14/21Team MemberRelationship SpecialtyStart DateEnd Date Penelope Casas DO [address] [place] [address] PCP - GeneralFamily Rijmjekb11/3/22 Jonny Wilcox MD [address] [place] [address] Primary Staff PhysicianCardiology07/16/18 [place] [address] [place] [address] PhysicianHematology/Oncology09/14/21 Davida Restrepo RN [address] [facility] [place] [address] Specialty Care CoordinatorHematology/Oncology09/14/21Te MemberRelationship SpecialtyStart DateEnd Date Penelope Casas DO [address] [facility] [place] [address] PCP - GeneralFamily Kcgmtfnw84/3/22 Jonny Wilcox MD [address] [place] [address] Primary Staff PhysicianCardiology07/16/18 [place] [address] [place] [address] PhysicianHematology/Oncology09/14/21 Davida Restrepo, MARSHA [address] [place] [address] Specialty Care CoordinatorHematology/Oncology09/14/21Team MemberRelationship SpecialtyStart DateEnd Date Penelope Casas DO [address] [facility] [place] [address] [facility] - [facility] Ufoamwoz43/3/22 Jonny Wilcox MD [address] [place] [address] Primary Staff PhysicianCardiology07/16/18 [place] [address] [place] [address] PhysicianHematology/Oncology09/14/21 Davida Restrepo RN [address] [place] [address] Specialty Care CoordinatorHematology/Oncology09/14/21Team MemberRelationship SpecialtyStart DateEnd Date Penelope Casas DO [address] [facility] [place] [address] PCP - GeneralFamily Ghnswpqc02/3/22 Jonny Wilcox MD [address] [place] [address] Primary Staff PhysicianCardiology07/16/18 [place] [address] [place] [address] PhysicianHematology/Oncology09/14/21 Davida Restrepo, RN [address] [place] [address] Specialty Care CoordinatorHematology/Oncology09/14/21Team MemberRelationship SpecialtyStart DateEnd Date Penelope Casas DO [address] [place] [address] PCP - GeneralFamily Mhthboka67/3/22 Jonny Wilcox MD [address] [place] [address] Primary Staff PhysicianCardiology07/16/18 [place] [address] [place] [address] PhysicianHematology/Oncology09/14/21 Davida Restrepo, RN [address] [place] [address] Specialty Care CoordinatorHematology/Oncology09/14/21Te MemberRelationship SpecialtyStart DateEnd Date Penelope Casas DO [address] [place] [address] PCP - GeneralFamily Jqcizmnj74/3/22 Jonny Wilcox MD [address] [place] [address] Primary Staff PhysicianCardiology07/16/18 [place] [address] [place] [address] PhysicianHematology/Oncology09/14/21 Davida Restrepo RN [address] [place], [place] [address] Specialty Care CoordinatorHematology/Oncology09/14/21Team MemberRelationship SpecialtyStart DateEnd Date Penelope Casas DO [address] [place] [address] [facility] - [facility] Kdfgqqhh51/3/22 Jonny Wilcox MD [address] [place] [address] Primary Staff PhysicianCardiology07/16/18 [place] [address] [place] [address] PhysicianHematology/Oncology09/14/21 Davida Restrepo RN [address] [place] [address] Specialty Care CoordinatorHematology/Oncology09/14/21Te MemberRelationship SpecialtyStart DateEnd Date Penelope Casas DO [address] [place] [address] PCP - [facility] Cwkalyeu99/3/22 Jonny Wilcox MD [address] [place] [address] Primary Staff PhysicianCardiology07/16/18 [place] [address] [place] [address] PhysicianHematology/Oncology09/14/21 Davida Restrepo RN [address] [place] [address] Specialty Care CoordinatorHematology/Oncology09/14/21Team MemberRelationship SpecialtyStart DateEnd Date Penelope Casas DO [address] [place] [address] PCP - GeneralFamily Xjlkmidh78/3/22 Jonny Wilcox MD [address] [place] [address] Primary Staff PhysicianCardiology07/16/18 [place] [address] [place] [address] PhysicianHematology/Oncology09/14/21 Davida Restrepo RN [address] [place] [address] Specialty Care CoordinatorHematology/Oncology09/14/21Team MemberRelationship SpecialtyStart DateEnd Date Penelope Casas MD [address] [place] [address] PCP - GeneralFamily Medicine11/07/23Team MemberRelationshipSpecialtyStart DateEnd Date Penelope Casas MD [address] [place] [address] PCP - GeneralFamily Medicine11/07/23Team MemberRelationshipSpecialtyStart DateEnd Date Penelope Casas MD [address] [place] [address] PCP - Generalmily Medicine11/07/23Team MemberRelationshipSpecialtyStart DateEnd Date Penelope Casas MD [address] [place] [address] PCP - [facility]ally [facility]11/07/23Team MemberRelationshipSpecialtyStart DateEnd Date Penelope Casas MD [address] [place] [address] PCP - [facility] Medicine11/07/23 Team Status: Inactive Member Role Status Dates Wilton Herrmann DO Attending Provider Active Start : May 10, 2024 End: May 10, 2024Team MemberRelationshipSpecialtyStart DateEnd Date Penelope Casas DO [address] [place] [address] PCP - GeneralVan [facility]ally Rfrkswdm94/3/22 Jonny Wilcox MD [address] [place] [address] Primary Staff PhysicianCardiology07/16/18 [place] [address] [place] [address] PhysicianHematology/Oncology09/14/21 Davida Restrepo, RN [address] [place] [address] Specialty Care CoordinatorHematology/Oncology09/14/21Team MemberRelationship SpecialtyStart DateEnd Date Penelope Casas MD [address] [place] [address] PCP - [facility] Medicine11/07/23Team MemberRelationshipSpecialtyStart DateEnd Date Penelope Casas MD [address] [place] [address] PCP - GeneralFamily Medicine11/07/23Team MemberRelationshipSpecialtyStart DateEnd Date Penelope Casas MD [address] [place] [address] PCP - GeneralFamily Medicine11/07/23Team MemberRelationshipSpecialtyStart DateEnd Date Penelope Casas MD [address] [place] [address] PCP - Generalmily Medicine11/07/23Team MemberRelationshipSpecialtyStart DateEnd Date Penelope Casas DO [address] [facility] [place] [address]457 PCP - Generalmily Indkjpfz67/3/22 Jonny Wilcox MD [address] [place] [id number] Primary Staff PhysicianCardiology07/16/18 [place] [address] [place] [address] PhysicianHematology/Oncology09/14/21 Davida Restrepo, MARSHA [address] [place] [address] Specialty Care CoordinatorHematology/Oncology09/14/21Team MemberRelationship SpecialtyStart DateEnd Date Penelope Casas MD [address] [facility] [place] [address] PCP - GeneralFamily Medicine11/07/23Team MemberRelationshipSpecialtyStart DateEnd Date Penelope Casas MD [address] [place] [address] PCP - GeneralFamily Medicine11/07/23Team MemberRelationshipSpecialtyStart DateEnd Date Penelope Casas DO PCP - GeneralFamily Medicine07/07/19Team MemberRelationshipSpecialtyStart DateEnd Date Penelope Casas DO PCP - GeneralFamily Medicine07/07/19Team MemberRelationshipSpecialtyStart DateEnd Date Penelope Casas MD [address] [place] [place] [address] PCP - Generalmily Medicine11/07/23Team MemberRelationshipSpecialtyStart DateEnd Date Penelope Casas DO PCP - GeneralFamily Medicine07/07/19Team MemberRelationshipSpecialtyStart DateEnd Date Penelope Casas DO PCP - GeneralFamily Medicine07/07/19Team MemberRelationshipSpecialtyStart DateEnd Date Penelope Casas DO [address] [facility] [place] [address] PCP - GeneralFamily Zmxvwgli10/3/22 Jonny Wilcox MD [address] [place] [address] Primary Staff PhysicianCardiology07/16/18 [place] [address] [place] 8363306 PhysicianHematology/Oncology09/14/21 Davida Restrepo, RN [address] [place] [id number] Specialty Care CoordinatorHematology/Oncology09/14/21Team MemberRelationship SpecialtyStart DateEnd Date Penelope Casas DO PCP - GeneralFamily Medicine07/07/19Team MemberRelationshipSpecialtyStart DateEnd Date Penelope Casas MD [address] [place] [id number] PCP - GeneralFamily Medicine11/07/23Team MemberRelationshipSpecialtyStart DateEnd Date Penelope Casas MD [address] [place] [address] PCP - GeneralFamily Medicine11/07/23Team MemberRelationshipSpecialtyStart DateEnd Date Penelope Casas DO PCP - GeneralFamily Medicine07/07/19Team MemberRelationshipSpecialtyStart DateEnd Date Penelope Casas DO PCP - GeneralFamily Medicine07/07/19Team MemberRelationshipSpecialtyStart DateEnd Date Penelope Casas MD [address] [place] [address] PCP - GeneralFamily Medicine11/07/23Team MemberRelationshipSpecialtyStart DateEnd Date Penelope Casas MD [address] [place] [address] PCP - GeneralFamily Medicine11/07/23Team MemberRelationshipSpecialtyStart DateEnd Date Penelope Casas DO PCP - GeneralFamily Medicine07/07/19Team MemberRelationshipSpecialtyStart DateEnd Date Penelope Casas DO [address] [place] [address] PCP - GeneralFamily Ujhlfhhx72/3/22 Jonny Wilcox MD [address] [place] [address] Primary Staff PhysicianCardiology07/16/18 [place] [address] [place] [address] PhysicianHematology/Oncology09/14/21 Davida Restrepo, RN [address] [place] [address] Specialty Care CoordinatorHematology/Oncology09/14/21Team MemberRelationship SpecialtyStart DateEnd Date Penelope Casas DO PCP - GeneralFamily Medicine07/07/19Team MemberRelationshipSpecialtyStart DateEnd Date Penelope Casas DO PCP - GeneralFamily Medicine07/07/19Team MemberRelationshipSpecialtyStart DateEnd Date Penelope Casas DO PCP - GeneralFamily Medicine07/07/19Team MemberRelationshipSpecialtyStart DateEnd Date Penelope Casas DO PCP - GeneralFamily Medicine07/07/19Team MemberRelationshipSpecialtyStart DateEnd Date Penelope Casas DO PCP - GeneralFamily Medicine07/07/19Team MemberRelationshipSpecialtyStart DateEnd Date Penelope Casas MD [address] [place] [address] PCP - GeneralFamily Medicine11/07/23Team MemberRelationshipSpecialtyStart DateEnd Date Penelope Casas DO PCP - GeneralFamily Medicine07/07/19Team MemberRelationshipSpecialtyStart DateEnd Date Penelope Casas DO PCP - GeneralFamily Medicine07/07/19Team MemberRelationshipSpecialtyStart DateEnd Date Penelope Casas DO PCP - GeneralFamily Medicine07/07/19Team MemberRelationshipSpecialtyStart DateEnd Date Penelope Casas MD [address] [place] [address] PCP - GeneralFamily Medicine11/07/23Team MemberRelationshipSpecialtyStart DateEnd Date Penelope Casas DO PCP - GeneralFamily Medicine07/07/19Team MemberRelationshipSpecialtyStart DateEnd Date Penelope Casas DO PCP - GeneralFamily Medicine07/07/19Team MemberRelationshipSpecialtyStart DateEnd Date Penelope Casas MD [address] [place] [address] PCP - Generalmily Medicine11/07/23Team MemberRelationshipSpecialtyStart DateEnd Date Penelope Casas MD [address] [place] [address] PCP - Generalmily Medicine11/07/23Team MemberRelationshipSpecialtyStart DateEnd Date Penelope Casas MD [address] [place] [address] PCP - GeneralFamily Medicine11/07/23Team MemberRelationshipSpecialtyStart DateEnd Date Penelope Casas MD [address] [place] [address] PCP - GeneralFamily Medicine11/07/23Team MemberRelationshipSpecialtyStart DateEnd Date Penelope Casas MD [address] [place] [address] PCP - [facility]11/07/23Team MemberRelationshipSpecialtyStart DateEnd Date Penelope Casas MD [address] [place] [address] PCP - [facility]11/07/23Team MemberRelationshipSpecialtyStart DateEnd Date Penelope Casas MD [address] [place] [address] PCP - [facility]11/07/23Team MemberRelationshipSpecialtyStart DateEnd Date Penelope Casas MD [address] [facility] [place] [address] PCP - [facility]11/07/23 Reason for Visit (unrecogniz ed section and content) ReasonCommentsFuture AppointmentReasonCommentsPatient QuestionReasonComments Medication QuestionReasonOnset DateCommentsRefill Bkaucpn79/13/2022ReasonOnset DateCommentsRefill Kbsbojq73/02/2022ReasonCommentsHypercoagulable state6 month follow upReasonCommentsPrimary hypercoagulable state8 week follow upReason CommentsResultsReasonCommentsAppointmentPatient QuestionMedication Question OrdersSpecialtyDiagnoses / ProceduresReferred By ContactReferred To Contact Diagnoses Iron deficiency anemia secondary to blood loss (chronic) Iron deficiency anemia of Procedures INJECTION, FERRIC DERISOMALTOSE, 10 MG Kristofer Calix MD [address] [place] [address] [place] [address] [address] [employer] [address] [place] [address] Referral IDStatusReasonStart DateExpiration DateVisits RequestedVisits [id number]/7/20221/10/[id number] Request SpecialtyDiagnoses / ProceduresReferred By ContactReferred To Contact Diagnoses Iron deficiency anemia secondary to blood loss (chronic) Iron deficiency anemia of Procedures IRON SUCROSE INJECTION PER 1 MG Kristofer Calix MD [address] [place] [address] [place] [address] [address] [place] [id number] Referral IDStatusReasonStart DateExpiration DateVisits RequestedVisits [id number]/28/20221/1/[id number] DateCommentsRefill Sssawvz3007/03/2022ReasonCommentsAnemiaFollow upReasonCommentsOrdersReason CommentsEstablished PatientReasonCommentsAppointmentReasonCommentsLab Orders ReasonCommentsPrimary hypercoagulable state (HCC)Follow upReasonComments Appointment RescheduledSpecialtyDiagnoses / ProceduresReferred By Contact Referred To Contact Diagnoses Iron deficiency anemia of Iron deficiency anemia secondary to blood loss (chronic) Procedures IRON SUCROSE INJECTION PER 1 MG Kristofer Calix MD [address] [place] [address] [address] [place] [phone] [facility] [address] [place] [phone] Referral IDStatusReasonStart DateExpiration DateVisits RequestedVisits [id number] DateCommentsRefill Opjdwfn3411/29/2023easonCommentsAmenorrheaReasonOnset DateCommentsRefill Request 4ReasonCommentsRoutine VisitReasonCommentsPatient UpdateReason CommentsAnemiafollowupReasonCommentsfollow up miscarriageReasonCommentsVaginal BleedingDizzinessReasonCommentsIrregular CyclesReasonOnset DateCommentsRefill Uvefqvy5207/25/2024ReasonOnset DateCommentsRefill Gtdomtq5110/20/2024ReasonOnset DateCommentsRefill Rkgbckv5810/29/2024ReasonCommentsGestational DiabetesSpecialty Diagnoses / ProceduresReferred By ContactReferred To ContactMaternal and Medicine Diagnoses Gestational diabetes mellitus (GDM), antepartum, gestational diabetes method of control unspecified Wilton Herrmann, DO [address] [facility] [address] [place] [address] Phone: tel: fax: Maternal- Medicine at [facility] [address] [place] [address] Phone: tel: fax: Referral IDStatusReasonStart DateExpiration DateVisits RequestedVisits [id number] Review Specialty Services Required [id number]kzdmi stateAnemia8 week follow up ReasonCommentsMFM consultReasonCommentsRoutine VisitReasonComments [...] BE BASED ON THE PRIMARY CLINICAL RECORDS. [facility] [email or web address] [facility]. provides no warranty or guarantee of the accuracy or completeness of information in this document.
[2025-03-12 20:02] VITALS: BP 115/69; PULSE 76
== END 2025-03-12 20:30 | disposition home or self-care (01) ==
LOC: US 19:07 → FBC 19:09
PROVIDERS: Visit Provider Obstetrics & Gynecology
DX: O24.419 Gestational diabetes mellitus in pregnancy, unspecified control (principal); Z3A.32 32 weeks gestation of pregnancy
CPT/HCPCS: 76818

== ENCOUNTER 2025-03-16 11:12 | Outpatient (OUT) | payer MEDICAID, SELFPAY ==
--- OUTSIDE RECORDS SUMMARY | 2025-03-16 11:22 | XMS_ITS | CCD ---
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 Name Role Phone CROW MONGE Unavailable Unavailable BIBI CHRISTY Unavailable Unavailable ERIKA LONDON Attending Unavailab ERIKA Haddad Referring Unavailab Haseeb Chavez Attending Unavailable Crow Monge Referring Unavailable Humaira Gaviria MD Primary Care Provider Jonny Wilcox MD Unavailable Penelope CASAS Primary Care Physician Cheri Norwood Unavailable Unavailable Cosmo Elliott MD Unavailable Lauro RN, Davida Unavailable [phone] Penelope Casas Primary Care Provider [phone] PENELOPE CASAS Primary Care Unavailable PERVÍCTOR, FALGUNI C Referring Unavailable Humaira Gaviria MD Primary Care Provider Jonny Wilcox MD Unavailable Cosmo Elliott MD R Unavailable Lauro RN, Davida Unavailable [phone] Penelope Casas DO Primary Care Provider Jonny Wilcox MD P Unavailable Cosmo Elliott MD R Unavailable Lauro RN, Davida Unavailable [phone] Penelope Casas DO Primary Care Provider [phone] DR WILTON HERRMANN Primary Care Unavailable MONTEZ, [...] Unavailable MONTEZ, DR ROQUE Primary Care Unavailable ERBACON, DR ANGIE Luna Consulting Unavailable MONTEZ, DR [...] Anni Attending Unavailable Day, Anni Attending Unavailable KAPPenelope CONTRERAS Attending Unavailable KAPBEN, Penelope Tony Attending Unavailable MONTEZ, Wilton R Admitting Unavailable MONTEZ, Wilton R Attending Unavailable KAPPenelope CONTRERAS Admitting Unavailable KAPBEN, Penelope Tony Attending Unavailable [...] Attending Unavailable MONTEZ, Wilton R Referring Unavailable KATHERINE NEGRETE Attending Unavailable PENELOPE CASAS Primary Care Unavailable ABHYANKAR, KRISTOFER Referring Unavailable [...] WILTON Attending Unavailable MONTEZ, WILTON Attending Unavailable MILLER, CINDY Attending Unavailable MONTEZ, WILTON [...] KAPLE, PENELOPE A Primary Care Unavailable DOCHEVA, JOVANYA P Attending Unavailable MONTEZ, WILTON R Referring Unavailable KAPLE, PENELOPE A Primary Care Unavailable AMBATISAM Attending Unavailable DOCHEVA, NIKOLINA P Referring Unavailable KAPLE, PENELOPE A Primary Care Unavailable CHARLES CORTES Attending Unavailable MONTEZ, WILTON R Referring Unavailable KAPLE, PENELOPE A Primary Care Unavailable Allergies Allergy ClassificationReported Allergen(s)Allergy TypeDate of OnsetReaction(s) Facility (20 sources)Ciprofloxacin; Translations: [ciprofloxacin]Drug Pubohgg62-46-1907 Other: See Comments, Unknown, Numbness and tingling sensation of skin (finding), Nausea (finding), Other (See Comments), GI intolerance, [facility]iness[facility] Work Phone: (20 sources)Ciprofloxacin / fluocinolone; Translations: [CIPROFLOXACIN-FLUOCINOLONE]Drug Nxprygh59-12-8051Usmbs: See CommentsUniversity Hospitals Geneva Medical Center (20 sources)cow milk allergenic extract; Translations: [MILK]Drug Allergy 09-43-6385Axewe: See [facility] Work Phone: (20 sources)Lactalbumin; Translations: [LACTALBUMIN]Drug Qjalflv18-81-4625 Unknown, GI Upset, Other (See Comments)[facility] (20 sources)Lactose; Translations: [LACTOSE]Drug Lazdokc11-49-1364PP Upset, GI DisturbanceUniversity Hospitals [facility] (20 sources)MilkDrug Jtocuqw08-12-7407Duxhz: See Comments, Other (See Comments) [facility] (6 sources)PenicillinsDrug Wzjgmrv21-77-3175KdwyyodSuiqqzrtx Clinic (20 sources)Seasonal allergy; Translations: [SEASONAL ALLERGIES]Allergy to mxzgjizwl67-87-3488KG Upset, Other: See [facility] Work Phone: (20 sources)Milk Products; Translations: [Milk Products]Drug allergyIllness (finding)[facility] (20 sources)Ciprofloxacin / fluocinoloneDrug Cotxvnp09-47-1158Ppdzh (See Comments)[facility] Work Phone: (1 source)Seasonal allergyPropensity to adverse reactions to wwlrljusm70-15-0483 Other (See Comments)[facility] Work Phone: (1 source)Milk-Related CompoundsPropensity to adverse reactions to drug 45-11-2456Rmomc (See Comments)[facility] Work Phone: (2 sources)PenicillinsDrug Gzqukry94-70-4937HjwtokvNvravqeay Clinic (1 source)CiprofloxacinDrug Nlyafni60-65-1370CgyUniversity [facility]als [facility] (20 sources)Lactose (non-medical use)Propensity to adverse hbvvlizwm21-80-0096 [facility] (20 sources)Lactose (non-medical use)Drug Aujfrjv95-46-5386[facility] (20 sources)OctacosanolDrug Rufsnncwjfk53-02-8067[facility] (20 sources)OtherAllergy to -12-3665DxlixDHCT [facility] Work Phone: (3 sources)MILK CONTAINING PRODUCTS (DAIRY); Translations: [MILK CONTAINING PRODUCTS (DAIRY)]Propensity to adverse reactions to drug (disorder)05-25-2017 [facility] Medications Current Medications MedicationDrug Class(es)DatesSig (Normalized)Sig (Original)acetaminophen 300 mg / codeine phosphate 30 mg oral tablet (1 source)Opioid AgonistStart: 76-12-9290pvbkodxrxcuqg-codeine (TYLENOL #3) 300- 30 MG per tabletAlbuterol (Eqv-ProAir HFA) 90 mcg/inh inhalation aerosol (6 sources)Start: 40-86-7414xcmg 2 puff(s) by inhalation every six hours Albuterol (Eqv-ProAir HFA) 90 mcg/inh inhalation aerosol 2 puff(s), Inhalation, q6hr, 1 EA, Refill(s) 5, [facility], 168, cm, 02/02/24 14:43:00 EDT, Height/Length Dosing, 101.1, kg, 02/02/24 14:43:00 EDT, Weight Dosing Start Date: 02/02/24 Status: Orderedazithromycin 250 mg oral tablet (20 sources)Macrolide AntimicrobialStart: 09-08-2024 End: 93-57-2007trwwvdvwlujz (Zithromax Z-Jonny) 250 MG tablet Indications: 5 weeks gestation of ([facility]) As directed 6 tablet 09/08/2024 10/30/2024 Discontinued (Therapy completed)Start: 06-19-2024 End: 66-28-9871Archfzdor 250 mg Tab = 1 packet(s), Oral, As Directed, as directed on package labeling, X 5 day(s),# 6 tab(s), Refills(s) 1, Pharmacy: [facility], 168, cm, 06/09/24 14:03:00 EST, Height/Length Dosing, 98.4, kg, 06/19/24 16:19:00 EST, Weight Dosing Start Date: 06/19/24 Stop Date: 06/29/24 Status: OrderedStart: 04-21-2024 End: 90-37-0943weymjkqleurd (Zithromax Z-Jonny) 250 MG tablet Indications: Upper respiratory tract infection, unspecified type As directed 6 tablet 04/21/2024 05/06/2024 Discontinuedazithromycin 250 mg Tab 5-day Dose Pack (Z-Jonny) (2 sources)Start: 02-02-2024 End: 25-89-2669mkzyrftwdmwo 250 mg Tab 5-day Dose Pack (Z-Jonny) = 1 packet(s), Oral, As Directed, as directed on package labeling, X 5 day(s), # 6 tab(s), Refills(s) 0, Pharmacy: [facility], 168, cm, 02/02/24 14:43:00 EDT, Height/Length Dosing, 101.1, kg, 02/02/24 14:43:00 EDT, Weight Dosing Start Date:02/02/24 Stop Date: 02/07/24 Status: OrderedBlood Glucose Monitoring Suppl (D-Care Glucometer) w/Device kit (20 sources)Start: 10-30-2024 End: 16-19-6049Vluns Glucose Monitoring Suppl (D-Care Glucometer) w/Device kit Indications: Second trimester ([facility]) , 13 weeks gestation of ([facility]) , Multigravida of advanced maternal age in second trimester ([facility]) , Gestational diabetes mellitus (GDM), antepartum, gestational diabetesmethod of control unspecified ([facility]) , Elevated glucose tolerance test 1 kit Daily Use four times daily to check FSBS. In the morning prior to breakfast & 1 hour after each meal for a total fl6eujmi daily. 1 kit 10/30/2024 10/30/2025 Activeblood-glucose meter (BLOOD GLUCOSE MONITORING) kit (20 sources)blood-glucose meter (BLOOD GLUCOSE MONITORING) kit 1 each by other route in the morning. Use to check blood sugar 4 times daily . Activeblood- glucose sensor (FREESTYLE JENIFER 3 PLUS SENSOR) device (13 sources)Start: 75-50-5402gmmo 2 doses by mouth onceblood-glucose sensor (FREESTYLE JENIFER 3 PLUS SENSOR) device Indications: Gestational diabetes mellit us (GDM) in second trimester controlled on oral hypoglycemic drug Wear for 15 days and change 2 each 6 12/26/2024 Activecephalexin 500 mg oral tablet (20 sources)Cephalosporin AntibacterialStart: 08-19-2021 End: 28-86-6007zaxh 1 tablet by mouth twice dailycephalexin 500 mg oral tablet 500 mg = 1 tab(s), Oral, BID, X 10 day(s), # 20 tab(s), Refills(s) 0,Pharmacy: [facility], 168, cm, 08/19/21 10:50:00 [...] suspension (2 sources)Corticosteroid, Quinolone AntimicrobialStart: 10-23-2023 End: 11-00-2151Qlbplpvg 0.3%-0.1% Susp-Otic 4 drop(s), Otic, BID for 7 day(s), 7.5 mL, Refill(s) 0, [facility]/pharmacy #[id number], 168, cm, 10/23/23 16:55:00 EDT, Height/Length Dosing, 106.2, kg, 10/23/23 16:55:00 EDT, WeightDosing Start Date: 10/23/23 Stop Date: 10/30/23 Status: OrderedStart: 02-15-2023 End: 76-94-2081Dslgivys 0.3%-0.1% Susp-Otic 4 drop(s), Otic, BID for 7 day(s), 7.5 mL, Refill(s) 0, Only use if drainage or pain of ear shake well before using, [facility], 168, cm, 02/15/23 9:49:00 [...] (20 sources)Low Molecular Weight HeparinStart: 01-19-2025 End: 85-48-7821Semxxvzoms Sodium (Lovenox) 40 MG/0.4ML solution prefilled syringe Indications: Anticoagulant long-term use , Antiphospholipid antibody positive , Antiphospholipid antibody syndrome ([facility]) Inject 40 mg as directed Daily for 30 doses 12 mL 3 01/19/2025 02/18/2025 ActiveStart: 01-09-2025 End: 13-08-6059ykfwpu 0.4 mL by subcutaneous injection onceenoxaparin (LOVENOX) 40 mg/0.4 mL syringe Indications: Antiphospholipid syndrome Inject 0.4 mL (40 mg total) under the skin Every 12 (twelve) hours. 24 mL 6 01/13/2025 ActiveStart: 05-03-2023 End: 18-81-3908rqtaecdzyf (LOVENOX) 40 mg/0.4 mL Indications: Primary hypercoagulable state (HCC) , CVA, old, speech/language deficit , Cerebral hyponatremia INJECT 1 SYRINGE SUBCUTANEOUSLY EVERY 24 HOURS 90 mL 10/29/2024 ActiveStart: 04-06-2022 End: 78-93-1188fgarwnijzo (LOVENOX) 40 mg/0.4 mL Indications: Primary hypercoagulable state (HCC) , CVA, old, speech/language deficit , Cerebral hyponatremia INJECT THE CONTENTS OF ONE SYRINGE (0.4 ML) SUBCUTANEOUSLY EVERY 24 HOURS 90 mL 2 09/28/2022 ActiveStart: 09-06-2021 End: 41-38-4004kyiewq 0.8 mL by subcutaneous injection twice dailyenoxaparin (LOVENOX) 80 mg/0.8 mL Indications: Primary hypercoagulable state (HCC) Inject 0.8 mL subcutaneously twice daily. 48 mL 5 09/06/2021 10/06/2021 ActiveStart: 04-07-2020 End: 34-84-6009bczvyp 0.4 mL by subcutaneous injection every twenty-four hours enoxaparin (LOVENOX) 40 mg/0.4 mL Indications: Primary hypercoagulable state (HCC) , CVA, old, speech/language deficit , Cerebral hyponatremia Inject 0.4 mL subcutaneously every 24 hours. 36 mL 0 12/30/2021 03/30/2022 Active End: 52-03-0378itajkj 40 mg by subcutaneous injection in the [...] enoxaparin (LOVENOX) 40 MG/0.4ML injection (1 source)Start: 19-70-6156teoykbtusl (LOVENOX) 40 MG/0.4ML injection Inject 0.4 mLs into the skin daily 16 mL 1 02/20/2020 Activeenoxaparin (Lovenox) 40 MG/0.4ML injection (20 sources)enoxaparin (Lovenox) 40 MG/0.4ML injection 1 (one) time each day at the same time Activefamotidine 40 mg oral tablet (20 sources)Histamine-2 Receptor AntagonistStart: 42-84-2866nziv 1 tablet by mouth once daily at bedtimePepcid 40 mg Tab 40 mg = 1 tab(s), Oral, Once a day (at bedtime), # 90 tab(s), Refills(s) 4, Pharmacy: [facility], 168, cm, 06/30/24 8:36:00 EST, Height/Length Dosing, 97.2, kg, 06/30/24 8:36:00 EST, Weight Dosing Start Date: 06/30/24 Status: Ordered Quantity: 90.0 Unit: tab(s) Repeat number: 5Start: 11-29-2023 End: 14-07-8099gndy 1 tablet by mouth once dailyfamotidine (PEPCID) 20 mg tablet Take 1 tablet by mouth once daily. To take prior to infusion 1 tablet 11/29/2023 10/28/2024 Discontinued (Discontinued by Patient)Start: 11-29-2023 End: 88-07-6006vacstcnwiz 20 mg injection (PEPCID)fluconazole 150 mg oral tablet (6 sources)Azole AntifungalStart: 69-32-1338Wxsewlna 150 mg Tab 150 mg = 1 tab(s), Oral, q7day, # 4 tab(s), Refills(s) 1, Pharmacy: [facility], 168, cm, 06/09/24 14:03:00 EST, Height/Length Dosing, 98.4, kg, 06/19/24 16:19:00 EST, Weight Dosing Start Date: 06/19/24 Status: Ordered Quantity: 4.0 Unit: tab(s) Repeat number: 2 Indication: Candidiasis, unspecifiedfluticasone propionate 0.05 mg/actuat metered dose nasal spray (20 sources)CorticosteroidStart: 11-20-2024 End: 34-14-9671vmkg 1 spray(s) nasal route once dailyfluticasone (Flonase) 50 MCG/ACT nasal spray Indications: Sinus headache Administer 1 spray into each nostril Daily Shake gently. Before first use, prime pump. After use, clean tip and replace cap. 16 g 3 11/20/2024 11/20/2025 ActiveStart: 98-97-9231Cneacfm 0.05 mg/inh [place] 2 spray(s), Nasal, Daily, 16 gram, Refill(s) 11, each nostril, [facility]/pharmacy #[id number], 168, cm, 06/09/24 14:03:00 EST, Height/Length Dosing, 99.1, kg, 06/09/24 14:03:00 EST, Weight Dosing Start Date: 06/09/24 Status: Ordered Quantity: 16.0 Unit: g Repeat number: 12Start: 88-05-8343Sckzrpo 0.05 mg/inh [place] 2 spray(s), Nasal, Daily, 16 gram, Refill(s) 11, each nostril, [id number], 168, cm, 06/09/24 14:03:00 EST, Height/Length Dosing, 99.1, kg, 06/09/24 14:03:00 EST, Weight Dosing Start Date: 06/09/24 Status: OrderedStart: 85-84-5214Bisjboc 0.05 mg/inh [place] 2 spray(s), Nasal, Daily, 16 gram, Refill(s) 0, each nostril Start Date: 08/03/23 Status: Orderedisopropyl alcohol 0.7 ml/ml medicated pad (20 sources)Start: 94-44-0252Hnzlyqv Swabs (Alcohol Prep Pad) 70 % pads Indications: Second trimester ([facility]) , 13 weeks gestation of ([facility]) , Multigravida of advanced maternal age in second trimester ([facility]) , Gestational diabetes mellitus (GDM), antepartum, gestational diabetes method of control unspecified ([facility]) , Elevated glucose tolerance test Apply 1 Pad topically Daily Use four times daily to check FSBS. 150 each 3 10/30/2024 Activelevothyroxine sodium 0.025 mg oral tablet (20 sources)l-ThyroxineStart: 12-58-3015cjclifizdrkud 25 mcg (0.025 mg) Tab 25 mcg = 1 tab(s), Oral, Daily, Dr. Celaya, # 30 tab(s), Refills(s) 0 Start Date: 06/09/24 Status: Ordered Quantity: 30.0 Unit: tab(s) Repeat number: 1Start: 06-02-2024 End: 52-15-9519nqwc 1 tablet by mouth before mealtimelevothyroxine (Synthroid) 50 MCG tablet Indications: History of thyroid disease Take 1 tablet (50 mcg) by mouth in the morning. Take before meals. 30 tablet 11 06/02/2024 06/23/2024 DiscontinuedStart: 02-25-2024 End: 20-59-6947lgae 1 tablet by mouth before mealtimelevothyroxine (Synthroid) 25 MCG tablet Indications: Abnormal TSH Take 1 tablet (25 mcg) by mouth in the morning. Take before meals. 30 tablet 11 06/23/2024 06/23/2025 ActiveStart: 08-24-2021 End: 13-11-9738xzwrlejqduyzc (SYNTHROID) 25 mcg tablet Take 25 mcg by mouth. 0 08/24/2021 09/26/2023 Discontinued End: 91-53-3861gxmo 3 tablets by mouth once dailylevothyroxine (Synthroid) 25 MCG tablet Take 75 mcg by mouth 1 (one) time each day at the same time05/06/2024 DiscontinuedComment on above:Take 25 mcg by mouth.Lovenox 40 mg/0.4 mL Injection (20 sources)Start: 12-38-8017gouoqe 40 mg by subcutaneous injection every twenty-four hoursLovenox 40 mg/0.4 mL Injection 40 mg, SubCutaneous, q24hr, # 7 EA, Refills(s) 0, Blood Thinner Start Date: 04/07/20 Status: Ordered Quantity: 7.0 Unit: EA Repeat number: 1Start: 18-61-1878rvlnfn 40 mg by subcutaneous injection every twenty-four hoursLovenox 40 mg/0.4 mL Injection 40 mg, SubCutaneous, q24hr, # 7 EA, Refills(s) 0, Blood Thinner Start Date: 04/07/20 Status: Iesxmul14 hr metFORMIN hydrochloride 500 mg extended release oral tablet (20 sources)BiguanideStart: 80-36-7640fohCMBTNK XR (GLUCOPHAGE XR) 500 mg 24 hr tablet Take 500 AM and 1000 mg at night. 90 tablet 4 03/11/2025 ActiveStart: 01-19-2025 End: 49-18-5595layr 3 tablets by mouth every twenty-four hours at mealtime metFORMIN XR (Glucophage-XR) 500 MG 24 hr tablet Indications: Gestational diabetes mellitus (GDM), antepartum, gestational diabetes method of control unspecified ([facility]) Take 3 tablets (1,500 mg) by mouth in the evening. Take with meals Do not crush, chew, or split. 90 tablet 3 01/19/2025 ActiveStart: 01-01-2025 End: 34-92-7788wlkRCHXRZ XR (GLUCOPHAGE XR) 500 mg 24 hr tablet Take 1500 mg at night. 90 tablet 4 01/01/2025 03/11/2025 DiscontinuedStart: 12-17-2024 End: 99-72-1131ytuDKZVKG XR (GLUCOPHAGE XR) 500 mg 24 hr tablet Take 1000 mg at night. 90 tablet 4 12/17/2024 01/01/2025 DiscontinuedStart: 05-13-2024 End: 28-30-8405bjue 2 tablets by mouth every twenty-four hours at mealtime metFORMIN XR (Glucophage-XR) 500 MG 24 hr tablet Indications: Insulin resistance Take 2 tablets (1,000 mg) by mouth in the evening. Take with meals Do not crush, chew, or split. 60 tablet 11 05/13/2024 06/02/2024 DiscontinuedStart: 11-27-2023 End: 73-71-9887wfnv 1 tablet by mouth once dailymetFORMIN XR (Glucophage-XR) 500 MG 24 hr tablet Indications: Insulin resistance Take 1 tablet (500mg) by mouth 1 (one) time each day at the same time 30 tablet 11 09/18/2024 01/19/2025 DiscontinuedStart: 52-95-9092CyeGDKPUO (Eqv-Glucophage XR) 500 mg oral tablet, extended release 1,000 mg = 2 tab(s), Oral, Daily, Refills(s) 0 Start Date: 10/20/22 Status: Ordered Repeat number: 1Start: 03-26-2022 End: 62-41-3080djlYFWNQR XR (GLUCOPHAGE XR) 500 mg 24 hr [...] tablet by mouth once daily.polyethylene glycol 3350 14880 mg powder for oral solution (20 sources)Osmotic Laxativepolyethylene glycol (GLYCOLAX) 17 gram packet Take 17 g by mouth in the morning. ActivePolyethylene Glycols (4 sources)polyethylene glycol 3350 (MIRALAX PO) Take by mouth. ActivePRENATAL 19 29 mg iron- 1 mg tablet,chewable (20 sources)Start: 18-59-8295HBDDXSEO 19 29 mg iron- 1 mg tablet,chewable Chew 1 tablet and swallow in the morning. 6 10/31/2018ActiveStart: 00-45-9457NQADQTXP 19 29 mg iron- 1 mg tablet,chewable Chew 1 tablet and swallow daily. 6 10/31/2018 ActivePrenatal Vit-Fe Fumarate-FA ( PO) (1 source)Start: 84-39-6726Qclozgkx Vit-Fe Fumarate-FA ( PO) Take 1 tablet by mouth 0 10/31/2018 Activeprogesterone 200 mg oral capsule (20 sources)Progesteronetake 1 capsule by mouth in the morningprogesterone (PROMETRIUM) 200 mg capsule Take 1 capsule (200 mg total) by mouth in the morning. ActiveProgesterone 200 MG suppository (6 sources)Start: 09-18-2024 End: 60-92-4914Csndxfjqjhkf 200 MG suppository Indications: History of miscarriage Insert 200 mg into the vagina at bedtime Insert suppository vaginally every night at bedtime until 12 weeks gestation 30 suppository 3 09/18/2024 10/30/2024 Discontinued (Therapy completed)Start: 09-18-2024 End: 34-00-1930Addlqctlzrpk 200 MG suppository Indications: History of miscarriage Insert 200 mg into the vagina at bedtime Insert suppository vaginally every night at bedtime until 12 weeks gestation 30 suppository 3 09/18/2024 12/17/2024 ActiveStart: 09-01-2024 End: 81-31-7051Qtcjwysywxdz 200 MG suppository Indications: History of miscarriage Insert 200 mg into the vagina at bedtime Insert suppository vaginally every night at bedtime until 12 weeks gestation 30 suppository 2 09/01/2024 11/30/2024 Activeprogesterone vaginal suppository 200 mg (CPD) (4 sources)progesterone vaginal suppository 200 mg (CPD) Use 200 mg vaginally. Unwrap and insert as directed. Activeterconazole 4 mg/ml vaginal cream (3 sources)Azole AntifungalStart: 06-23-2024 End: 89-15-7556yxwocopebqa (Terazol 7) 0.4 % vaginal cream Indications: Vaginal discharge Insert 1 applicator intothe vagina at bedtime for 7 days 45 g 06/23/2024 06/30/2024 ActiveVentolin HFA 90 mcg/inh Aerosol-Adpt (1 source)Start: 09-07-2024 End: 46-51-6085vmpr 2 puff(s) by inhalation every six hours for wheezingVentolin HFA 90 mcg/inh Aerosol-Adpt 2 puff(s), Inhalation, q6hr for wheezing for 7 day(s), 8 gm, Refill(s) 0, [facility], 167, cm, 09/07/24 10:01:00 EDT, Height/Length Dosing, 96.4, kg, 09/07/24 10:01:00 EDT, Weight Dosing Start Date: 09/07/24 Stop Date: 09/14/24 Status: Ordered Quantity:8.0 Unit: g Repeat number: 1 Indication: Acute upper respiratory infection, unspecifiedVitamin D (20 sources)Start: 87-68-5095Cvbhsis D 2,000 International_Unit, Oral, qWeek, Refills(s) 0 Start Date: 08/03/23 Status: Ordered Repeat number: 1Start: 03-27-2762Wxrhldr D 2,000 International_Unit, Oral, qWeek, Refills(s) 0 Start Date: 08/03/23 Status: Ordered Completed/Discontinued Medications MedicationDrug Class(es)DatesSig (Normalized)Sig (Original)aspirin 81 mg chewable tablet (5 sources)Platelet Aggregation Inhibitor, Nonsteroidal Anti-inflammatory Drug End: 85-09-9408syvfvoc 81 MG chewable tablet Chew 81 mg in the morning. 05/06/2024 Discontinued1 ml dexamethasone phosphate 4 mg/ml injection (1 source)CorticosteroidStart: 11-29-2023 End: 77-59-7902ztaVISYYovzdo sodium phosphate 8 mg injection (DECADRON)3 ml insulin glargine 100 unt/ml pen injector (6 sources)Insulin AnalogStart: 12-03-2024 End: 79-37-3709sgrlvbk glargine (LANTUS SOLOSTAR U-100 INSULIN) 100 unit/mL (3 mL) insulin pen Prime with 2 units then inject 4 units SQ into abd 15 mL 3 12/03/2024 12/17/2024 Discontinued (Allergic response)insulin isophane, human 100 unt/ml injectable suspension (10 sources)Start: 12-26-2024 End: 54-41-6831elaf 8 [IU] by mouth once dailyinsulin NPH (HumuLIN N,NovoLIN N) 100 unit/mL injection Indications: Gestational diabetes mellitus (GDM) in second trimester controlled on oral hypoglycemic drug Inj sbq in abd 8 units nightly 10 mL 6 12/26/2024 02/06/2025 Discontinued (Patient Never Started This Medication)iron sucrose 300 mg in NaCl 0.9% 250 mL (VENOFER) (3 sources)Start: 11-29-2023 End: 69-96-3850jady sucrose 300 mg in NaCl 0.9% 250 mL (VENOFER)Start: 11-22-2023 End: 19-98-0926whvy sucrose 300 mg in NaCl 0.9% 250 mL (VENOFER)Start: 11-15-2023 End: 04-32-0291pfav sucrose 300 mg in NaCl 0.9% 250 mL (VENOFER)multivitamin (MULTIPLE VITAMINS) tablet (7 sources)take 1 tablet by mouth once dailymultivitamin (MULTIPLE VITAMINS) tablet Take 1 tablet by mouth once daily. 0 ActiveComment on above:Take 1 tablet by mouth once daily.ondansetron 4 mg disintegrating oral tablet (4 sources)Serotonin-3 Receptor AntagonistStart: 04-14-2024 End: 37-88-8054sfey 1 tablet by mouth every six hours for nauseaondansetron ODT (Zofran-ODT) 4 MG disintegrating tablet Indications: Nausea and vomiting in Take 1 tablet (4 mg) by mouth every 6 (six) hours if needed for nausea or vomiting 30 tablet 2 04/14/2024 05/06/2024 DiscontinuedStart: 03-07-2024 End: 68-45-5680eroc 1 tablet by mouth every six hours as needed for nausea and vomiting and nausea and nauseaondansetron ODT (Zofran-ODT) 4 MG disintegrating tablet Indications: Nausea Take 1 tablet (4 mg) bymouth every 6 (six) hours if needed for nausea or vomiting 30 tablet 2 03/07/2024 04/06/2024 Active polysaccharide iron complex 391 mg oral capsule (20 sources)Start: 03-06-2022 End: 24-06-8110VLZ FE 180 mg iron cap Problems Active Problems Problem ClassificationProblemDateDocumented DateEpisodic/ChronicAcute cerebrovascular disease (20 sources)Cerebral infarction; Translations: [Cerebral infarction, unspecified]Onset: 05-16-2019 Resolved: [id number] disorders (20 sources)Anxiety; Translations: [Anxiety disorder, unspecified]Onset: [id number] dysrhythmias (20 sources)Supraventricular tachycardia; Translations: [Supraventricular tachycardia]Onset: [id number] and hemorrhagic disorders (20 sources)Antiphospholipid syndrome; Translations: [Hypercoagulability state] Onset: [id number] and other anemia (20 sources)Iron 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; Translations: [Iron deficiency anemia secondary to blood loss (chronic)]Onset: 31-48-2935Lpgprkp Deficiency and other anemia (1 source)Iron deficiency anemia secondary to blood loss (chronic); Translations: [Iron deficiency anemia secondary to blood loss (chronic)]Onset: 08-90-6617KyuwgxbSmfzlbvo or abnormal glucose tolerance complicating ; childbirth; or the puerperium (20 sources)Gestational diabetes mellitus in , unspecified control; Translations: [Gestational diabetes mellitus in childbirth, unspecified control] Onset: 62-15-5270JorvcoaoLbqcpnhfj of teeth and jaw (11 sources)Temporomandibular ffdza-even-kayhwkoajle syndrome; Translations: [Arthralgia of temporomandibular joint]Onset: 404280-91-8734Eufrtdrh Esophageal disorders (20 sources)Laryngopharyngeal reflux; Translations: [Gastro-esophageal reflux disease without esophagitis]Onset: 736479-85-1261QdhmvwcAhvwnqxq; including migraine (2 sources)Sinus headache; Translations: [Sinus headache]63-29-7963ItubvtetWzpb effects of cerebrovascular disease (20 sources)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; Translations: [Other speechand language deficits following cerebral infarction]Onset: 24-64-4929XkyymijMuijvupgar disorders (1 source)Hormone replacement therapy; Translations: [HORMONE REPLACEMENT THERAPY]Onset: 59-41-6606YsxxapwqIirhxpckn disorders (20 sources)Irregular menstruation, unspecified; Translations: [Missed period] Onset: 62-06-7514NcbcrqiQodpacoiijqsp mental health disorders (20 sources)Psychogenic hyperventilation; Translations: [Other somatoform disorders]Onset: 017425-80-7222DevyzwlWbnccisq sclerosis (1 source)Multiple sclerosis; Translations: [Multiple sclerosis]Onset: 60-04-1523DssntpcNcwiuzluglf deficiencies (20 sources)Vitamin D deficiency; Translations: [Vitamin D deficiency, unspecified]Onset: 992367-03-6629OtlmzcxEbxhg aftercare (1 source)Other senior care (current) drug therapy; Translations: [OTH NURSING HOME CURRENT DRUG THERAPY]Onset: 90-56-8304YbhmkeonIwuqs aftercare (1 source)watermaster (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) use 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 hypoglycemic drugs; Translations: [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 USE ORAL HYPOGLYCEMIC DX]Onset: 24-92-4317NzahuvnyRdsrn aftercare (2 sources)H/O: miscarriage; Translations: [Encounter for other specified aftercare]44-50-1591LaiaeobiAfgce circulatory disease (4 sources)History of cerebrovascular disease; Translations: [Personal history of transient ischemic attack (TIA), and cerebral infarction without residual deficits]Onset: 265495-83-9930VrkuorngAytwh circulatory disease (3 sources)Personal history of transient ischemic attack (TIA), and cerebral infarction without residual deficits; Translations: [PERS HX TIA AND CI NO RESID DEFICIT]Onset: 69-30-9278NmytolafOhvog circulatory disease (1 source)History of transient ischemic attack; Translations: [Personal history of transient ischemic attack (TIA), and cerebral infarction without residual deficits]64-98-8407DgwqcjpsJvogy complications of ; puerperium affecting management of mother (20 sources)Anemia in mother complicating childbirth; Translations: [Anemia complicating childbirth]Onset: 879149-56-9627TqlbiolKhyyw complications of ; puerperium affecting management of mother (1 source)Other diseases of the blood and blood-forming organs and certain disorders involving the immune mechanism complicating childbirth; Translations: [OTH DZ BLD BFO IMMUN COMP CHILDBRTH]Onset: 60-55-8960MtgcvjbwAirkp complications of ; puerperium affecting management of mother (1 source)Endocrine, nutritional and metabolic diseases complicating childbirth; Translations: [ENDOCRN NUTR MET DZ COMP CHILDBIRTH]Onset: 12-39-3806Rnwwcczs Other complications of ; puerperium affecting management of mother (1 source)Streptococcus B carrier state complicating childbirth; Translations: [STREP B QUIROZ STATE COMP CHILDBIRTH]Onset: 76-64-5050LanihdzhJxlym complications of (20 sources)Iron deficiency anemia of ; Translations: [Anemia complicating , unspecified trimester]Onset: 03-34-2767BlmuybsGbxjk complications of (1 source)Endocrine, nutritional and metabolic diseases complicating , third trimester; Translations: [ENDOCRN NUTR MET DZ COMP PG 3RD TRI]Onset: 90-56-1375ExibfomcFpdkf complications of (5 sources)Supervision of elderly multigravida, third trimester; Translations: [SUP ELDER MULTIGRAVIDA THIRD TRI]Onset: 20-21-8801SpvaadwlOqrqz complications of (1 source)Other diseases of the blood and blood-forming organs and certain disorders involving the immune mechanism complicating , third trimester; Translations: [OTH DZ BLD BFO IMMN COMP PG 3RD TRI]Onset: 05-04-2022 EpisodicOther complications of (1 source)Maternal care for excessive growth, third trimester, not applicable or unspecified; Translations: [MAT CARE EXCSS FTL GRTH 3RD TRI UNS] Onset: 42-68-0507FvpustotOhpvz complications of (20 sources)History of with abortive outcome; Translations: [Supervision of with other poorreproductive or obstetric history, second trimester]Onset: 319637-46-1683SzpynafkSpmpk complications of (3 sources)Hypothyroidism in ; Translations: [Endocrine, nutritional and metabolic diseases complicating , second trimester]01-02-2025 EpisodicOther ear and sense organ disorders (20 sources)Otitis externa of right ear; Translations: [Unspecified otitis externa, right ear]Onset: 41-33-4052LssxgncQnyuo ear and sense organ disorders (7 sources)Otitis indsswu64-11-9850EevsdugMillg endocrine disorders (20 sources)Hypoglycemia; Translations: [Hypoglycemia, unspecified]Onset: 246094-86-5368IkcddvaBgrhg female genital disorders (2 sources)Vaginal bleeding; Translations: [Abnormal uterine and vaginal bleeding, unspecified]39-04-2628QwkokkaPyrqo female genital disorders (4 sources)Vaginal discharge; Translations: [Other specified noninflammatory disorders of vagina]13-20-4674UuuszraqSyqqv hematologic conditions (1 source)H/O: blood disorder; Translations: [Personal history of diseases of the blood and blood-forming organs and certain disorders involving the immune mechanism]Onset: 90-85-7190GpxawtdoLrlel lower respiratory disease (9 sources)Loqkc80-12-7760LqcktezlRzxgv nervous system disorders (1 source)Idiopathic progressive neuropathy; Translations: [Idiopathic progressive neuropathy]Onset: 56-94-6058MwlqysxPvdkt nervous system disorders (20 sources)Neuropathy; Translations: [Idiopathic progressive neuropathy]Onset: 231543-50-4552GpnvlnsGtjxe nervous system disorders (3 sources)Paresthesia; Translations: [Paresthesia of skin]Onset: 05-16-2019 EpisodicOther nervous system disorders (9 sources)Muscle -76-1366KqpwbezyFxkhd nervous system disorders (6 sources)Facial dqmmaqgwppf59-16-6047SlwyubcaFnusj nutritional; endocrine; and metabolic disorders (10 sources)Obese class II; Translations: [Body mass index (BMI) 36.0-36.9, adult]Onset: 63-07-1643SpdiddbXfjrh nutritional; endocrine; and metabolic disorders (20 sources)Obesity; Translations: [Other obesity]Onset: 214088-07-4124 ChronicOther nutritional; endocrine; and metabolic disorders (20 sources)Morbid obesity; Translations: [Morbid (severe) obesity due to excess calories]Onset: 38-12-7978NcoftypDwdnm nutritional; endocrine; and metabolic disorders (3 sources)Hypercalcemia; Translations: [Hypercalcemia]23-61-2294FovugvwXqtaw nutritional; endocrine; and metabolic disorders (20 sources)Body mass index 30+ - obesity; Translations: [Body mass index (BMI) 37.0-37.9, adult]Onset: 274718-91-9922OmklcmtHchvr nutritional; endocrine; and metabolic disorders (1 source)Obese class I; Translations: [Body mass index (BMI) 34.0-34.9, adult] Onset: 22-13-2664OjexziaLqlwb nutritional; endocrine; and metabolic disorders (1 source)H/O: Disorder; Translations: [Personal history of other endocrine, nutritional and metabolic disease]Onset: 25-80-2847BxuekubbMzdzy nutritional; endocrine; and metabolic disorders (2 sources)H/O: thyroid disorder; Translations: [Personal history of other endocrine, nutritional and metabolic disease]56-21-6210RoshlukiYpovd screening for suspected conditions (not mental disorders or infectious disease) (12 sources)Encounter for screening for malignant neoplasm of cervix; Translations: [Encounter for screening for diabetes mellitus]Onset: 10-28-2021 EpisodicOther skin disorders (1 source)Podopompholyx; Translations: [Dyshidrosis [pompholyx]]Onset: 61-24-9371YtzsgdzqFmgry upper respiratory disease (20 sources)Allergy to auwkya01-48-9920PxawfaeQvbro upper respiratory disease (1 source)Polyp of nasal sinus; Translations: [Nasal polyp, unspecified]Onset: 87-45-9938HmptgbbaRngmx upper respiratory infections (8 sources)Chronic sinusitis; Translations: [Chronic sinusitis, unspecified] Onset: 10-55-9541IbggvizFcawmkue codes; unclassified (1 source)Sleep disorder; Translations: [Other sleep disorders]Onset: 10-20-2022 ChronicResidual codes; unclassified (20 sources)Obstructive sleep apnea syndrome; Translations: [Obstructive sleep apnea (adult) (pediatric)]Onset: 449500-08-4583AtcgkbuIdrukmxc codes; unclassified (8 sources)Patient encounter status; Translations: [Other specified health status]Onset: 27-93-5659QwpweaooRuqyssae codes; unclassified (1 source)39 weeks gestation of ; Translations: [39 WEEKS GESTATION OF ]Onset: 04-41-2042TgtojfjfQpltsiqg codes; unclassified (1 source)Family history of diabetes mellitus; Translations: [FAMILY HISTORY OF DIABETES MELLITUS]Onset: 47-66-4438ZzxiwzzgZzgzteoi codes; unclassified (1 source)Family history of stroke; Translations: [FAMILY HISTORY OF STROKE] Onset: 79-86-5271YswobqntOcwlehqy codes; unclassified (1 source)38 weeks gestation of ; Translations: [38 WEEKS GESTATION OF ]Onset: 23-06-1848OlaemiytSwboiimm codes; unclassified (1 source)37 weeks gestation of ; Translations: [37 WEEKS GESTATION OF ]Onset: 33-06-7303UyuzqolzGsrrcxjt codes; unclassified (1 source)35 weeks gestation of ; Translations: [35 WEEKS GESTATION OF ]Onset: 34-56-0826TyuejshyApxajyru codes; unclassified (1 source)34 weeks gestation of ; Translations: [34 WEEKS GESTATION OF ]Onset: 23-31-6241GvmwfnfwBvvtyoli codes; unclassified (1 source)33 weeks gestation of ; Translations: [33 WEEKS GESTATION OF ]Onset: 32-01-1190OgvcxnyrBmiyvmce codes; unclassified (1 source)32 weeks gestation of ; Translations: [32 WEEKS GESTATION OF ]Onset: 94-80-8639RzditifoTckajhwp codes; unclassified (1 source)31 weeks gestation of ; Translations: [31 WEEKS GESTATION OF ]Onset: 97-92-0497XcuhocinDihvjixu codes; unclassified (20 sources)Sleep yrkrovxx00-56-1588HewgdlzvRsgzpnym codes; unclassified (1 source)Localized edema; Translations: [Localized edema]Onset: 11-09-2023 EpisodicResidual codes; unclassified (2 sources)Gestation period, 14 weeks; Translations: [14 weeks gestation of ]85-93-9337FgbowrcxJstaeqxg codes; unclassified (2 sources)Gestation period, 13 weeks; Translations: [13 weeks gestation of ]92-70-4836EdxrenkoWhujvfac codes; unclassified (2 sources)Gestation period, 16 weeks; Translations: [16 weeks gestation of ]28-08-0874GviofcjdHriildfe codes; unclassified (2 sources)Gestation period, 19 weeks; Translations: [19 weeks gestation of ]83-01-1613WeomilkcQzktuofo codes; unclassified (3 sources)Gestation period, 22 weeks; Translations: [22 weeks gestation of ]27-18-8689FjkimleaCdpeygpl codes; unclassified (3 sources)Family history of autism; Translations: [Family history of other mental and behavioral disorders]71-63-8620FrzznwqjLduhxwoq codes; unclassified (2 sources)Gestation period, 23 weeks; Translations: [23 weeks gestation of ]56-11-3762KkovmlgmQseajwta codes; unclassified (2 sources)Gestation period, 25 weeks; Translations: [25 weeks gestation of ]34-03-4297BsojefxkGtkxjgia codes; unclassified (1 source)Gestation period, 27 weeks; Translations: [27 weeks gestation of ]47-54-1270LxozifsvCvpmwigw codes; unclassified (1 source)22 weeks gestation of ; Translations: [22 weeks gestation of ]Onset: 46-45-5091IkpnieqyTyrlykch codes; unclassified (2 sources)Gestation period, 28 weeks; Translations: [28 weeks gestation of ]09-66-5885CiesknyiXizkewyq codes; unclassified (1 source)Gestation period, 29 weeks; Translations: [29 weeks gestation of ]08-25-7420HahcxfvhTczksvjs codes; unclassified (2 sources)Gestation period, 30 weeks; Translations: [30 weeks gestation of ]99-05-5655BuutowitWqpgkbz disorders (20 sources)Hypothyroidism; Translations: [Hypothyroidism, unspecified]Onset: 199473-25-2890WezldajBjgxwke disorders (20 sources)Disorder of thyroid, unspecified; Translations: [Disorder of thyroid gland]Onset: 159996-06-5025UcvilgawAzpxclsaa cerebral ischemia (1 source)Transient cerebral ischemia; Translations: [Transient cerebral ischemic attack, unspecified]Onset: 066763-14-0342PlskjacYoyoykkoleph (20 sources)History of CUAF-FeG-548-11-2022Unclassified (20 sources)Inhalation -10-3554Msdailrbqkox (20 sources)Jai-ufgqbu83-17twvjvx79-56-5732Kyfdethhydas (1 source)CONTACT W/AND (SUSP) EXPOS COVID-19; Translations: [CONTACT W/AND (SUSP) EXPOS COVID-19]Onset: 51-21-8399Lhvpdvmycpre (15 sources)Patient encounter pjsiyj55-82-6922Hxlixvpfkpkj (1 source)MFM consultOnset: 67-37-8847Rhuqubhxhxrc (1 source)Gestational DiabetesOnset: 84-22-5637Rsgxt infection (20 sources)Viral jxyfpue68-67-2234Laersxuq Past or Other Problems Problem ClassificationProblemDateDocumented DateEpisodic/ChronicAbdominal pain (20 sources)Abdominal pain; Translations: [Pain in pelvis]Onset: 02-01-2019 48-50-0829KusizahkUldhv bronchitis (20 sources)Acute infective bronchitis; Translations: [Acute bronchitis due to other specified organisms]Onset: 349146-78-0051PxfzctmySqbav posthemorrhagic anemia (20 sources)Acute posthemorrhagic anemia; Translations: [Acute posthemorrhagic anemia]Onset: 218413-51-2230BtqkvfslRbnkziji reactions (20 sources)Other allergy status, other than to drugs and biological substances; Translations: [Lxjld-sb-tbcimtw vesicular eczema of hands and feet]Onset: 52-82-2522EqdxoiwnQklopwktr infection; unspecified site (20 sources)Bacterial infectious disease; Translations: [Other bacterial infections of unspecified site]Onset: 999698-28-1652IgislyqfUjxtvctb of urinary tract (20 sources)History of calculus of kidney; Translations: [Personal history of urinary calculi]Onset: 277507-70-0873RiggzshaLvqeghz dysrhythmias (20 sources)Palpitations; Translations: [Palpitations]Onset: 08-26-2019 07-43-8896KdavnshsFdlxprzmsl associated with dizziness or vertigo (20 sources)Dizziness; Translations: [Dizziness and giddiness]Onset: 02-05-2019 56-91-8843TppkfilqWuczagtcmz and other anemia (20 sources)Anemia; Translations: [Anemia, unspecified]Onset: 45-58-6723Mbasiovo Diabetes mellitus without complication (20 sources)Prediabetes; Translations: [Prediabetes]Onset: 34-78-0729Klhnimtk Diseases of mouth; excluding dental (20 sources)Xerostomia; Translations: [Dry mouth, unspecified]Onset: 12-22-2022 EpisodicFluid and electrolyte disorders (20 sources)Cerebral hyponatremia; Translations: [Hypo-osmolality and hyponatremia]Onset: 85-15-7493ErcxfsljBqflzxpiitfeqebx hemorrhage (20 sources)Hematochezia; Translations: [Blood-tinged feces]Onset: 06-12-2023 54-23-0982IbalazjbQazdpgbyobeke symptoms and ill-defined conditions (20 sources)Genitourinary symptoms; Translations: [Unspecified symptoms and signs involving the genitourinary system]Onset: 94-64-5256XjiostbeBweewhws; including migraine (20 sources)Migraine without aura, not refractory ; Translations: [Migraine without aura, not intractable, without status migrainosus]Onset: 09-12-2017 Resolved: 958467-06-5536FnmlsjiFdcadgekcvtjw and screening for infectious disease (20 sources)Antibody studies abnormal; Translations: [Raised antibody titer] Onset: 960424-50-7977CoibybpdDawpfud and fatigue (20 sources)Fatigue; Translations: [Other fatigue]Onset: EpisodicMycoses (20 sources)Candidiasis of vagina Resolved: 790733-13-9624ChdjttnbYotakguulfs deficiencies (20 sources)Vitamin B deficiency; Translations: [Deficiency of other specified B group vitamins]Onset: 858598-63-0988GmizgcffDN-cylpvxg trauma to perineum and vulva (20 sources)First degree perineal tear during delivery - delivered; Translations: [First degree perineal laceration during delivery]Onset: 585890-58-0584OvrefopfFcefm aftercare (20 sources)Long-term current use of anticoagulant; Translations: [watermaster (current) use of anticoagulants]Onset: 884446-47-8771UgjddiviRgqzp aftercare (20 sources)Long-term current use of drug therapy; Translations: [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/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]Onset: EpisodicOther circulatory disease (20 sources)History of cerebrovascular accident; Translations: [Personal history of transient ischemic attack (TIA), and cerebral infarction without residual deficits]Onset: 115307-13-7916IptomieqMpymjnt on above:reported by pt - related to antiphospholipid syndromeOther circulatory disease (20 sources)Elevated blood-pressure reading without diagnosis of hypertension; Translations: [Elevated blood-pressure reading, without diagnosis of hypertension]Onset: 322009-78-6801MkhovrdyNcqeo circulatory disease (20 sources)Elevated blood pressure; Translations: [Elevated blood-pressure reading, without diagnosis of hypertension]Onset: 386125-10-2020Bazrglpb Other complications of ; puerperium affecting management of mother (20 sources) problem; Translations: [Unspecified disorders of ]Onset: 781936-37-6587XyspclcoRxgej complications of ; puerperium affecting management of mother (1 source)Endocrine, nutritional and metabolic disease complicating , childbirth and puerperium; Translations: [Endocrine, nutritional and metabolic diseases complicating childbirth]Onset: 388248-59-5497StxmddzwGycwu complications of ; puerperium affecting management of mother (1 source)Complication of , childbirth and/or the puerperium; Translations: [Other diseases of the blood and blood-forming organs and certain disorders involving the immune mechanism complicating childbirth]Onset: 956696-95-2641AidilzisSlwyl complications of ; puerperium affecting management of mother (20 sources) hemorrhage; Translations: [Other immediate hemorrhage]Onset: 110993-22-0299DllbxsapDlolw complications of (1 source)Vomiting of ; Translations: [Vomiting of , unspecified]Onset: 349336-97-0405QwijfflpYdagh complications of (20 sources)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; Translations: [Maternal care for (suspected) chromosomal abnormality in fetus, not applicable or unspecified]Onset: 575080-85-1962ZfgjillgXdshk complications of (4 sources)Other specified related conditions, third trimester; Translations: [OTH SPEC PREG RELATEDCOND 3RD TRI]Onset: 42-01-0301RfxfcwyiFgphm complications of (20 sources)Antiphospholipid syndrome; Translations: [Other diseases of the blood and blood-forming organs and certain disorders involving the immune mechanism complicating , unspecified trimester]Onset: 07-07-2019 69-52-8835EcbmzponZbxrn complications of (20 sources)Multigravida of advanced maternal age; Translations: [Supervision of elderly multigravida, second trimester]Onset: 933515-54-1759NhvvomzuSygvw complications of (2 sources)Other diseases of the blood and blood-forming organs and certain disorders involving the immune mechanism complicating , unspecified trimester; Translations: [Other diseases of the blood andblood-forming organs and certain disorders involving the immune mechanism complicating , un specified trimester]Onset: 34-26-9292UdejsaqnRosvo complications of (1 source)Supervision of elderly multigravida, second trimester; Translations: [Supervision of elderly multigravida, second trimester]Onset: 66-20-2950Pctnhssa Other ear and sense organ disorders (20 sources)Referred otalgia of right ear; Translations: [Otalgia, right ear] Onset: 125161-88-3123XgpvemyhGkqjx female genital disorders (20 sources)Noninflammatory disorder of the vagina; Translations: [Other specified noninflammatory disorders ofvagina]Onset: 075282-50-3037Xdyluxan Other female genital disorders (20 sources)Disorder of female reproductive system; Translations: [Unspecified condition associated with femalegenital organs and menstrual cycle]Onset: 297838-36-2207YvkzutvtDzjol female genital disorders (1 source)Other specified noninflammatory disorders of vagina; Translations: [OTH SPEC NONINFLAMMATORY D/O VAGINA]Onset: 06-60-5883VdxueltuTvrjf female genital disorders (14 sources)Pelvic and perineal pain; Translations: [Pelvic and perineal pain] Onset: 720809-80-5458QwgfayrzMairr hematologic conditions (20 sources)H/O: anemia - iron deficient; Translations: [Personal history of diseases of the blood and blood-forming organs and certain disorders involving the immune mechanism]Onset: 145239-62-4655LikkpbygIdphd infections; including parasitic (20 sources)Personal history of other infectious and parasitic diseases; Translations: [History of COVID-19]Onset: 530929-24-9905MclezoixUusxv inflammatory condition of skin (1 source)Itching of skin; Translations: [Pruritus, unspecified]Onset: 760772-18-4171TacgnzmgFrxcc inflammatory condition of skin (20 sources)Pruritus, unspecified; Translations: [Unspecified pruritic disorder] Onset: 153608-35-9115DgdnqflqJdsus injuries and conditions due to external causes (20 sources)Inhalation injury; Translations: [Injury, unspecified, initial encounter]Onset: 465812-26-0309HdpgnzluEeojb lower respiratory disease (20 sources)Dyspnea; Translations: [Dyspnea, unspecified]Onset: 06-12-2023 48-80-9381KmjqmwsuFgkog lower respiratory disease (20 sources)H/O: asthma; Translations: [Personal history of other diseases of the respiratory system]Onset: 748479-55-0683GhpzbbmaIwpkg lower respiratory disease (20 sources)Snoring; Translations: [Snoring]Onset: 15-42-4160MrlsqlzfLoocn nervous system disorders (20 sources)Muscle fasciculation; Translations: [Fasciculation]Onset: 08-19-2021 EpisodicOther nervous system disorders (20 sources)Paresthesia of lower extremity; Translations: [Paresthesia of skin] Onset: 645749-74-2593GvudvlsxJrbcc nervous system disorders (20 sources)Acute postoperative pain; Translations: [Other acute postprocedural pain]Onset: 141643-33-9645ZavnmwcuSpyqv non-traumatic joint disorders (20 sources)Joint pain; Translations: [Pain in unspecified joint]Onset: 056007-63-7099RrvqnwlhRvojk nutritional; endocrine; and metabolic disorders (20 sources)H/O: hypothyroidism; Translations: [Personal history of other endocrine, nutritional and metabolic disease]Onset: 831632-40-1838Rpwcxrem Other and delivery including normal (20 sources)Normal ; Translations: [Encounter for supervision of normal , unspecified, first trimester]Onset: 968523-91-5904Hcllkoim Other skin disorders (20 sources)Oumvw-lp-dqhgjtv vesicular eczema of hands and feet; Translations: [Dyshidrosis [pompholyx]]Onset: 098808-21-6283WvpjbmvjYlfde upper respiratory disease (20 sources)Deviated nasal septum; Translations: [Deviated nasal septum]Onset: 73-19-9773KchjoldyFlkcl upper respiratory disease (20 sources)Polyp of nasal cavity and/or nasal sinus; Translations: [Nasal polyp, unspecified]Onset: 486079-00-5175EldmgjutFfiwi upper respiratory infections (20 sources)Acute upper respiratory infection Resolved: 114504-75-6814HmwggsjwVnscsp media and related conditions (20 sources)Dysfunction of eustachian tube; Translations: [Disorder of right Eustachian tube]Onset: 583979-86-9221TznpjwlnJgxxwar cyst (20 sources)Cyst of ovary; Translations: [Cyst of right ovary]Onset: 02-06-2019 21-21-1661YnjjnznlTwahhoan codes; unclassified (20 sources)Family history of female genital tract disorder Resolved: 760205-13-2675TnifhcdgGughakii codes; unclassified (20 sources)FH: Anemia Resolved: 741970-31-0808QkeqxgonUjhvrimn codes; unclassified (20 sources)First trimester ; Translations: [Less than 8 weeks gestation of ]Onset: 175502-37-0022RotxfxwtGlbqaqer codes; unclassified (20 sources)Gestation period, 32 weeks; Translations: [32 weeks gestation of ]Onset: 712995-63-2095BdnrtopgXsixycux codes; unclassified (1 source)Gestation period, 33 weeks; Translations: [33 weeks gestation of ]Onset: 719284-18-4067OersoeasLwitkmnu codes; unclassified (1 source)Gestation period, 34 weeks; Translations: [34 weeks gestation of ]Onset: 973072-36-9800JiojxatdTqhxaurx codes; unclassified (1 source)Gestation period, 35 weeks; Translations: [35 weeks gestation of ]Onset: 499282-75-8130IbrnqjuoQlnzxful codes; unclassified (1 source)Gestation period, 36 weeks; Translations: [36 weeks gestation of ]Onset: 127012-09-8967XngaejdkWsijxewi codes; unclassified (1 source)Gestation period, 37 weeks; Translations: [37 weeks gestation of ]Onset: 114652-26-8884UfpxzdzePrfexkfu codes; unclassified (1 source)Gestation period, 38 weeks; Translations: [38 weeks gestation of ]Onset: 665069-70-5856MtoqmisuHofbkzmv codes; unclassified (1 source)Gestation period, 39 weeks; Translations: [39 weeks gestation of ]Onset: 274156-03-0798KnjcoxinYyyslyjx codes; unclassified (20 sources)Other general symptoms and signs; Translations: [Other general symptoms]Onset: 989170-34-2233YnskouycMccjpirs codes; unclassified (1 source)Unspecified blood type, Rh negative; Translations: [UNSPECIFIED BLOOD TYPE RH NEGATIVE]Onset: 29-96-7235DpbyvdkeYkayvkbn codes; unclassified (1 source)28 weeks gestation of ; Translations: [28 WEEKS GESTATION OF ]Onset: 58-22-9436UsndgxipTdosixwt codes; unclassified (20 sources)Intolerant of cold; Translations: [Other general symptoms and signs] Onset: 603544-29-0760DxgnkhcrHjhbnwgk codes; unclassified (20 sources)Non-smoker; Translations: [Other specified health status]Onset: 540411-42-3015IrnhdnkvIgafitmk codes; unclassified (20 sources)Swelling of salivary gland; Translations: [Localized edema]Onset: 392875-92-6844KnjhbpwjClxujpmmciy; intervertebral disc disorders; other back problems (20 sources)Neck pain; Translations: [Cervicalgia]Onset: EpisodicSpontaneous (20 sources)Miscarriage Resolved: 796812-60-8523SgizhkpwErhstsh (20 sources)Syncope and collapse; Translations: [Syncope and collapse]Onset: 494078-10-7992ExwvhhxtKjhnyjrpwjst (20 sources)PregnancyOnset: 02-20-2007 Resolved: 295280-79-8965Edwawqgjfhyl (20 sources)Suspected disease caused by 0193-xEbQ92-41rVjR44-90-9972Tcdlublqcnis (1 source)Exposure to 2019 novel coronavirus; Translations: [Contact with and (suspected) exposure to COVID19]Urinary tract infections (20 sources)Infective urethritis; Translations: [Other urethritis]Onset: 94-03-8757Goklhver Results Test NameValueInterpretationReference RangeFacilityUS OB BPP W NON-STRESS on 32-97[place]0685[place] [address] Ultrasound Report Signed Patient: SANNA RNEDON MR#: [id number] : 1985 Acct:[id number] Age/Sex: 39 / F ADM Date: 03/05/25 Loc: US Attending Dr: Wilton Herrmann D.O. Ordering Physician: Wilton Herrmann D.O. Date of Service: 03/05/25 Procedure(s): US OB BPP w non-stress Accession Number(s): [id number] cc: Wilton Herrmann D.O.; Physician,Non-Staff M.DLazara [facility] [place] [id number] Patient Name: SANNA RENDON MRN: [facility]:[id number] date: 1985 Sex: F Assigned Patient Location: [facility] Current Patient Location: Accession/Order Number: [id number] Exam Date: 03/05/2025 19:15 Report Date: 03/06/2025 [...] Pisano M.D. 03/06/2025 8:10 AM Dictation Location: [place] [address] Electronically authenticated by: [id number] Y Date: 03/06/2025 08:10 Dictated By: Pamela Pisano M.D. Signed By: 03/06/2513 DD/ 9 TD/TT: Client Support Analyst:ELVERadiology, Radiologist, - 03/06/2025 [place] [address] Ultrasound Report Signed Patient: SANNA RENDON MR#: [id number] : 1985 Acct:[id number] Age/Sex: 39 / F ADM Date: 03/05/25 Loc: US Attending Dr: Wilton Herrmann D.O. Ordering Physician: Wilton Herrmann D.O. Date of Service: 03/05/25 Procedure(s): US OB BPP w non-stress Accession Number(s): [id number] cc: Wilton Herrmann D.O.; Physician,Non-Staff [place] [address] Patient Name: SANNA RENDON MRN: [facility]:[id number] date: 1985 Sex: F Assigned Patient Location: [facility] Current Patient Location: Accession/Order Number: [id number] Exam Date: 03/05/2025 19:15 Report Date: 03/06/2025 [...] Pisano M.D. 03/06/2025 8:10 AM Dictation Location: [place] [address] Electronically authenticated by: [id number] Y Date: 03/06/2025 08:10 Dictated By: Pamela Pisano M.D. Signed By: 03/06/25812 DD/ 9 TD/TT: Client Support Analyst: SHILOH HealthcareRadiology Study observation (narrative)NOMS HealthcareUS OB BPP W NON-STRESSOrdered By: Radiologist Radiology on 63-14-7611GMYKHawthorn Children's Psychiatric Hospital Work Phone: [phone]([place])D3 [facility] 283094-pumernkylsmsqd D3 [Mass/Vol]54.6 ng/kUXphbpg56.0-80.0[facility] on above: Order Comment: Specimen Type: BLOOD SPECIMENOrdering Facility: [facility] Address:[address] [place], [place] [address]Performed By: #### 1989-3 ####[facility] LABCLIA [id number] [address] Auto Differential panel (Bld)on 03-02-2025 Basophils (Bld) [#/Vol]0.03 10*3/uLNormal<0.11CSelect Medical Specialty Hospital - Cincinnati NorthComment on above:Order Comment: Specimen Type: BLOOD SPECIMENOrdering Facility: [facility] Address:[address] [place] [address] Performed By: #### 07581-4 ####[facility] LABCLIA [id number] [place], [place] [address]Trwhxxsbf/100 WBC (Bld)0.3 % NormalWVUMedicine Barnesville Hospital on above:Order Comment: Specimen Type: BLOOD SPECIMENOrdering Facility: [facility] Address:[address] [place], [place] [address]Performed By: #### 78946-6 ####[facility] LABCLIA [id number] [place] [address] Differential cell count method Nom (Bld)AutoNormalCSelect Medical Specialty Hospital [facility] North Comment on above:Order Comment: Specimen Type: BLOOD SPECIMENOrdering Facility: [facility] Address:[address] [place] [address] Performed By: #### 25028-2 ####[facility] LABCLIA [id number] [place], [place] [address]Fvaubkjonyu (Bld) [#/Vol]0.06 10*3/uLNormal<0.46[facility] on above:Order Comment: Specimen Type: BLOOD SPECIMENOrdering Facility: [facility] Address:[address] [place], [place] [address]Performed By: #### 60209-7 ####[facility] LABCLIA [id number] [place], [place] [address]Iublfthrynh/100 WBC (Bld)0.7 %NormalWVUMedicine Barnesville Hospital on above:Order Comment: Specimen Type: BLOOD SPECIMENOrdering Facility: [facility] Address:[address] [place], [place] [address]Performed By: #### 27775-9 ####[facility] LABCLIA [id number] [place], [place] [address]Ymvbbumonlu distribution width (RBC) [Ratio]13.3 %Mxzfae27.5-15.0[facility] on above: Order Comment: Specimen Type: BLOOD SPECIMENOrdering Facility: [facility] Address:[address] [place], [place] [address]Performed By: #### 33465- 8 ####[facility] LABIA [id number] [place], [place] [address]Vgabhffudv (Bld) [Volume fraction]33.0 %Low36.0-46.0 [facility] on above:Order Comment: Specimen Type: BLOOD SPECIMENOrdering Facility: [facility] Address:[address] [place], [place] [address]Performed By: #### 23179-0 ####[facility] LABIA [id number] [place], [place] [address]Wmmansedaz (Bld) [Mass/Vol]11.6 g/nYLoouit86.5-15.5CCleveland Clinic Foundation on above: Order Comment: Specimen Type: BLOOD SPECIMENOrdering Facility: [facility] Address:[address] [place], [place] [address]Performed By: #### 40669- 8 ####[facility] LABCLIA [id number] [place], [place] [address]Ulbdojsk granulocytes (Bld) [#/Vol]0.04 10*3/uLNormal <0.10[facility] on above:Order Comment: Specimen Type: BLOOD SPECIMENOrdering Facility: [facility] Address:[address] [place], [place] [address]Performed By: #### 50948-9 ####[facility] LABCLIA [id number] [place], [place] [address]Vnzyzmyz granulocytes/100 WBC (Bld)0.5 %NormalWVUMedicine Barnesville Hospital on above: Order Comment: Specimen Type: BLOOD SPECIMENOrdering Facility: [facility] Address:[address] [place], [place] [address]Performed By: #### 43090- 8 ####[facility] LABCLIA [id number] [place], [place] [address]Ymgcghbhhdy (Bld) [#/Vol]2.31 10*3/uLNormal1.00-4.00 [facility] on above:Order Comment: Specimen Type: BLOOD SPECIMENOrdering Facility: [facility] Address:[address] [place], [place] [address]Performed By: #### 63592-2 ####[facility] LABCLIA [id number] [place], [place] [address]Xtcnolmrbrq/100 WBC (Bld)26.7 %NormalWVUMedicine Barnesville Hospital on above:Order Comment: Specimen Type: BLOOD SPECIMENOrdering Facility: [facility] Address:[address] [place], [place] [address]Performed By: #### 90779-5 ####[facility] LABCLIA [id number] [place], [place] [address]JFY (RBC) [Entitic mass]31.3 naPxryvn86.0-34.0[facility] on above:Order Comment: Specimen Type: BLOOD SPECIMENOrdering Facility: [facility] Address:[address] [place], [place] [address]Performed By: #### 23061-1 ####[facility] LABCLIA [id number] [place], [place] [address]HSVP (RBC) [Mass/Vol]35.2 g/jSRakzcn39.5-36.0[facility] on above: Order Comment: Specimen Type: BLOOD SPECIMENOrdering Facility: [facility] Address:[address] [place], [place] [address]Performed By: #### 67444- 8 ####[facility] LABCLIA [id number] [place], [place] [address]RWE (RBC) [Entitic vol]88.9 bKOmmjpt94.0-100.0[facility] on above:Order Comment: Specimen Type: BLOOD SPECIMENOrdering Facility: [facility] Address:[address] [place], [place] [address]Performed By: #### 40504-8 ####[facility] LABIA [id number] [place], [place] [address]Paoxpshkj (Bld) [#/Vol]0.63 10*3/uLNormal<0.87[facility] on above:Order Comment: Specimen Type: BLOOD SPECIMENOrdering Facility: [facility] Address:[address] [place], [place] [address]Performed By: #### 97943- 8 ####[facility] LABCLIA [id number] [place], [place] [address]Qpwxfnvbn/100 WBC (Bld)7.3 %NormalWVUMedicine [facility] on above:Order Comment: Specimen Type: BLOOD SPECIMENOrdering Facility: [facility] Address:[address] [place], [place] [address]Performed By: #### 90468-2 ####[facility] LABCLIA [id number] [place], [place] [address]Uyhmlcvsgke (Bld) [#/Vol]5.57 10*3/uLNormal1.45-7.50[facility] on above:Order Comment: Specimen Type: BLOOD SPECIMENOrdering Facility: [facility] Address:[address] [place], [place] [address]Performed By: #### 65392-3 ####[facility] LABCLIA [id number] [place], [place] [address]Rtlkhxnhgzw/100 WBC (Bld)64.5 %NormalWVUMedicine [facility] on above:Order Comment: Specimen Type: BLOOD SPECIMENOrdering Facility: [facility] Address:[address] [place], [place] [address]Performed By: #### 19935-5 ####[facility] LABCLIA [id number] [place], [place] [address]Ymtyymvah RBC (Bld) [#/Vol] 10*3/uLNormal<0.01[facility] on above:Order Comment: Specimen Type: BLOOD SPECIMENOrdering Facility: [facility] Address:[address] [place], [place] [address]Performed By: #### 81313-5 ####[facility] LABCLIA [id number] [place], [place] [address]Subcrqjvu RBC/100 WBC (Bld) [Ratio]0.0 /100 WBCNormal [facility] on above:Order Comment: Specimen Type: BLOOD SPECIMENOrdering Facility: [facility] Address:[address] [place], [place] [address]Performed By: #### 61053-2 ####[facility] LABIA [id number] [place], [place] [address]Vytbrqis mean volume (Bld) [Entitic vol]9.4 fLNormal9.0-12.7CCleveland Clinic Foundation on above:Order Comment: Specimen Type: BLOOD SPECIMENOrdering Facility: [facility] Address:[address] [place] [address] Performed By: #### 07480-0 ####[facility] LABCLIA [id number] [place], [place] [address]Srwnsqiso (Bld) [#/Vol]257 10*3/mTCpeark615-315JqvxybuqkWVUMedicine [facility] Hospital on above:Order Comment: Specimen Type: BLOOD SPECIMENOrdering Facility: [facility] Address:[address] [place], [place] [address]Performed By: #### 40326-9 ####[facility] LABIA [id number] [place], [place] [address]SWN (Bld) [#/Vol]3.71 10*6/uLLow3.90-5.20[facility] on above:Order Comment: Specimen Type: BLOOD SPECIMENOrdering Facility: [facility] Address:[address] [place], [place] [address]Performed By: #### 94099-6 ####[facility]ENTERIA [id number] [place], [place] [address]DRV (Bld) [#/Vol]8.64 10*3/uL Normal3.70-11.00[facility] on above:Order Comment: Specimen Type: BLOOD SPECIMENOrdering Facility: [facility] Address:[address] [place], [place] [address]Performed By: #### 65164-7 ####[facility] LABIA [id number] [place], [place] [address]KLHKRWih 83-18-6268ESDQGRNocrs (SP) Office ([place]) SANNA RENDON ([id number]) 1985 F Date Time Provider Department 03/02/25 11:30 AM KATHERINE NEGRETE During your visit today, we recorded the following information about you: Temperature Pulse Respiration Blood pressure 97.2 degrees 73/minute 16/minute 133/79 Weight 97.2 kg Katherine Negrete APRN.CNP 03/02/2025 8:18 PM Signed NAME: Sanna Rendon CLINIC NO.: [id number] DATE OF SERVICE: March 02, 2025 ([place]elope) [...] later in 2018. These were found in [place], [place]. 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 NormalHolzer Medical Center – Jacksonprehensive metabolic 2000 panelon 03-02-2025 Albumin [Mass/Vol]4.1 g/dLNormal3.9-4.9CC[facility] on above:Order Comment: Specimen Type: BLOOD SPECIMENOrdering Facility: [facility] Address:[address] [place], [place] [address]Performed By: #### 14477-5 ####[facility] LABCLIA [id number] [place], [place] [address]RFQ [Catalytic activity/Vol]64 U/AShlqwf27-019 [facility] on above:Order Comment: Specimen Type: BLOOD SPECIMENOrdering Facility: [facility] Address:[address] [place], [place] [address]Performed By: #### 44876-5 ####[facility] LABCLIA [id number] [place], [place] [address]SBF [Catalytic activity/Vol]10 U/LNormal7-38[facility] on above:Order Comment: Specimen Type: BLOOD SPECIMENOrdering Facility: [facility] Address:[address] [place], [place] [address]Performed By: #### 94569- 8 ####[facility] LABCLIA [id number] [place], [place] [address]Onhci gap [Moles/Vol]13 mmol/LNormal8-15[facility] on above:Order Comment: Specimen Type: BLOOD SPECIMENOrdering Facility: [facility] Address:[address] [place], [place] [address]Performed By: #### 81167-3 ####[facility] LABCLIA [id number] [place], [place] [address]XSD [Catalytic activity/Vol]12 U/TGgy94-17MspbhokogWVUMedicine Barnes[facility] Hospital on above:Order Comment: Specimen Type: BLOOD SPECIMENOrdering Facility: [facility] Address:[address] [place], [place] [address]Performed By: #### 87153-8 ####[facility] LABCLIA [id number] [place] [address] Bilirubin [Mass/Vol]0.2 mg/dLNormal0.2-1.3CC[facility] on above:Order Comment: Specimen Type: BLOOD SPECIMENOrdering Facility: [facility] Address:[address] [place], [place] [address]Performed By: #### 89278-0 ####[facility] LABCLIA [id number] [place], [place] [address]Xtcycum [Mass/Vol]10.3 mg/dLHigh8.5-10.2CCleveland Clinic [facility] on above:Order Comment: Specimen Type: BLOOD SPECIMENOrdering Facility: [facility] Address:[address] [place], [place] [address]Performed By: #### 50846-4 ####[facility] LABCLIA [id number] [place], [place] [address]Eslaluli [Moles/Vol]97 mmol/QWye71-085UltuolxbmWVUMedicine Barnesville Hospital on above:Order Comment: Specimen Type: BLOOD SPECIMENOrdering Facility: [facility] Address:[address] [place], [place] [address]Performed By: #### 68055- 8 ####[facility] LABCLIA [id number] [employer] [facility] [place], [place] [address]IB0 [Moles/Vol]21 mmol/DCos05-36GlyuhebzgWVUMedicine Barnesville Hospital on above:Order Comment: Specimen Type: BLOOD SPECIMENOrdering Facility: [facility] Address:[address] [place], [place] [address]Performed By: #### 10956-0 ####[facility] LABCLIA [id number] [place], [place] [address]Dbfgxavdni [Mass/Vol]0.54 mg/dL Low0.58-0.96[facility] on above:Order Comment: Specimen Type: BLOOD SPECIMENOrdering Facility: [facility] Address:[address] [place], [place] [address]Performed By: #### 19360-5 ####[facility] LABCLIA [id number] [place] [address] eGFRcr SerPlBld CKD-EPI 8737263 mL/min/1.73m???Normal>=60[facility] on above:Order Comment: Specimen Type: BLOOD SPECIMENOrdering Facility: [facility] Address:[address] [place], [place] [address]Result Comment: Estimated Glomerular Filtration Rate (eGFR) is [...] accurately reflect actual GFR. Performed By: #### 12832-9 ####[facility] LABIA [id number] [place], [place] [address]Xwpqozj [Mass/Vol]71 mg/dLLow 74-99[facility] on above:Order Comment: Specimen Type: BLOOD SPECIMENOrdering Facility: [facility] Address:[address] [place], [place] [address]Result Comment: The [place] Diabetes Association (ADA) provides guidance for cutoff [...] Standards of Medical Care in Diabetes 2016, [place] [employer]. Diabetes Care. 2016.39(Suppl 1).Performed By: #### 01440-5 ####[facility] LABCLIA [id number] [place], [place] [address]Taeoaecsc [Moles/Vol]3.9 mmol/LNormal3.7-5.1CCleveland Clinic [facility] on above:Order Comment: Specimen Type: BLOOD SPECIMENOrdering Facility: [facility] Address:[address] [place], [place] [address]Performed By: #### 01612-7 ####[facility] LABCLIA [id number] [place], [place] [address]Wcbiyjx [Mass/Vol]7.2 g/dLNormal6.3-8.0[facility] on above:Order Comment: Specimen Type: BLOOD SPECIMENOrdering Facility: [facility] Address:[address] [place], [place] [address]Performed By: #### 33918- 8 ####[facility] LABCLIA [id number] [place], [place] [address]Bcrudv [Moles/Vol]131 mmol/OOno393-217PcqhostnuWVUMedicine Barnesville Hospital on above:Order Comment: Specimen Type: BLOOD SPECIMENOrdering Facility: [facility] Address:[address] [place], [place] [address]Performed By: #### 07921-5 ####[facility] LABCLIA [id number] [place], [place] [address]Geqs nitrogen [Mass/Vol]9 mg/dL Normal7-21[facility] on above:Order Comment: Specimen Type: BLOOD SPECIMENOrdering Facility: [facility] Address:[address] [place], [place] [address], [place] [address]Performed By: #### 42736-4 ####[facility] LABCLIA [id number] [place] [address] US OB BPP W NON-STRESSon 51-16-4305[place] [address] Ultrasound Report Signed Patient: SANNA RENDON MR#: [id number] : 1985 Acct:[id number] Age/Sex: 39 / F ADM Date: 02/26/25 Loc: US Attending Dr: Wilton Herrmann D.O. Ordering Physician: Wilton Herrmann D.O. Date of Service: 02/26/25 Procedure(s): US OB BPP w non-stress Accession Number(s): [id number] cc: Wilton Herrmann D.O.; Physician,Non-Staff M.DLazara The [place] [address] Patient Name: SANNA RENDON MRN: [id number] date: 1985 Sex: F Assigned Patient Location: US Current Patient Location: Accession/Order Number: [id number] Exam Date: 02/26/2025 19:42 Report Date: 02/27/2025 [...] Pisano M.D. 02/27/2025 10:53 AM Dictation Location: [place] [address] Electronically authenticated by: [id number] Y Date: 02/27/2025 10:53 Dictated By: Pamela Pisano M.D. Signed By: 02/27/25 1056 DD/ 1053 TD/TT: Client Support Analyst:MANUELHRadiology, Radiologist, - 02/27/2025 [place] [address] Ultrasound Report Signed Patient: SANNA RENDON MR#: [id number] : 1985 Acct:[id number] Age/Sex: 39 / F ADM Date: 02/26/25 Loc: US Attending Dr: Wilton Herrmann D.O. Ordering Physician: Wilton Herrmann D.O. Date of Service: 02/26/25 Procedure(s): US OB BPP w non-stress Accession Number(s): [id number] cc: Wilton Herrmann D.O.; Physician,Non-Staff Tamia The [address] [id number] Patient Name: SANNA RENDON MRN: [id number] date: 1985 Sex: F Assigned Patient Location: Current Patient Location: Accession/Order Number: [id number] Exam Date: 02/26/2025 19:42 Report Date: 02/27/2025 [...] Pisano M.D. 02/27/2025 10:53 AM Dictation Location: [place] [address] Electronically authenticated by: [id number] Y Date: 02/27/2025 10:53 Dictated By: Pamela Pisano M.D. Signed By: 02/27/25 1056 DD/ 1053 TD/TT: Client Support Analyst: [facility] HealthcareRadiology Study observation (narrative)[facility] HealthcareUS OB BPP W NON-STRESSOrdered By: Radiologist Radiology on 86-26-5822BZRGHawthorn Children's Psychiatric Hospital Work Phone: Urinalysis macro (dipstick) panel (U)on [...] - 1.03[facility] Urobilinogen, UA0.20.2 - 12 mg/dLNOMissouri Southern HealthcareNOMissouri Southern HealthcareNo Panel InformationOrdered By: Radiologist Radiology on 97-96-2450UEFWHawthorn Children's Psychiatric Hospital Work Phone: No Panel Informationon 08-07-4899Fjyyyqfcu Study observation (narrative)SHILOH BrowningUS OB BPP W NON-STRESSon 02-20-2025 [place] [address] Ultrasound Report Signed Patient: SANNA RENDON MR#: [id number] : 1985 Acct:[id number] Age/Sex: 39 / F ADM Date: 02/19/25 Loc: US Attending Dr: Wilton Herrmann D.O. Ordering Physician: Wilton Herrmann D.O. Date of Service: 02/19/25 Procedure(s): US OB BPP w non-stress Accession Number(s): [id number] cc: Wilton Herrmann D.O.; Physician,Non-Staff M.DLazara The [place] [id number] Patient Name: SANNA RENDON MRN: [id number] date: 1985 Sex: F Assigned Patient Location: LAB Current Patient Location: Accession/Order Number: [id number] Exam Date: 02/19/2025 19:47 Report Date: 02/20/2025 [...] Pisano M.D. 02/20/2025 8:37 AM Dictation Location: [place] [address] Electronically authenticated by: [id number] Y Date: 02/20/2025 08:37 Dictated By: Pamela Pisano M.D. Signed By: 02/20/25 0840 DD/ 0837 TD/TT: Client Support Analyst:TBHRadiology, Radiologist, - 02/20/2025 [place] [address] Ultrasound Report Signed Patient: SANNA RENDON MR#: [id number] : 1985 Acct:[id number] Age/Sex: 39 / F ADM Date: 02/19/25 Loc: US Attending Dr: Wilton Herrmann D.O. Ordering Physician: Wilton Herrmann D.O. Date of Service: 02/19/25 Procedure(s): US OB BPP w non-stress Accession Number(s): [id number] cc: Wilton Herrmann D.O.; Physician,Non-Staff Tam[facility] [place] [id number] Patient Name: SANNA RENDON MRN: [id number] date: 1985 Sex: F Assigned Patient Location: LAB Current Patient Location: Accession/Order Number: [id number] Exam Date: 02/19/2025 19:47 Report Date: 02/20/2025 [...] Pisano M.D. 02/20/2025 8:37 AM Dictation Location: [place] [address] Electronically authenticated by: [id number] Y Date: 02/20/2025 08:37 Dictated By: Pamela Pisano M.D. Signed By: 02/20/25 0840 DD/ 0837 TD/TT: Client Support Analyst: SHILOH Ibanez OB GROWTHon 48-49-1967[place] [address] Ultrasound Report Signed Patient: SANNA RENDON MR#: [id number] : 1985 Acct:[id number] Age/Sex: 39 / F ADM Date: 02/19/25 Loc: US Attending Dr: Wilton Herrmann D.O. Ordering Physician: Wilton Herrmann D.O. Date of Service: 02/19/25 Procedure(s): US OB growth Accession Number(s): [id number] cc: Wilton Herrmann D.O.; Physician,Non-Staff M.Ashvin [facility] [place] [id number] Patient Name: SANNA RENDON MRN: [id number] date: 1985 Sex: F Assigned Patient Location: LAB Current Patient Location: Accession/Order Number: [id number] Exam Date: 02/19/2025 19:47 Report Date: 02/20/2025 [...] Pisano M.D. 02/20/2025 8:37 AM Dictation Location: [place] [address] Electronically authenticated by: [id number] Y Date: 02/20/2025 08:37 Dictated By: Pamela Pisano M.D. Signed By: 02/20/25839 DD/ 6 TD/TT: Client Support Analyst:TBHRadiology, Radiologist, - 02/20/2025 [place] [address] Ultrasound Report Signed Patient: SANNA RENDON MR#: [id number] : 1985 Acct:[id number] Age/Sex: 39 / F ADM Date: 02/19/25 Loc: US Attending Dr: Wilton Herrmann D.O. Ordering Physician: Wilton Herrmann D.O. Date of Service: 02/19/25 Procedure(s): US OB growth Accession Number(s): [id number] cc: Wilton Herrmann D.O.; Physician,Non-Staff Tamia [facility] [place] [id number] Patient Name: SANNA RENDON MRN: [facility]:[id number] date: 1985 Sex: F Assigned Patient Location: LAB Current Patient Location: Accession/Order Number: [id number] Exam Date: 02/19/2025 19:47 Report Date: 02/20/2025 [...] Pisano M.D. 02/20/2025 8:37 AM Dictation Location: [place] [address] Electronically authenticated by: [id number] Y Date: 02/20/2025 08:37 Dictated By: Pamela Pisano M.D. Signed By: 02/20/25 0840 DD/ TD/TT: Client Support Analyst: SHILOH Colon CBC WITH AUTO DIFFon 43-77-0056CMGFPKKMM ABSOLUTE AUTO0.0NOMS HealthcareBasophils/100 WBC (Bld)0.2 %0.2 - 2.0 %SHILOH HealthcareEosinophils/100 WBC (Bld)0.3 %Low0.9 - 7.0 %NOMS HealthcareErythrocyte distribution width (RBC) [Ratio]13.1 %11.0 - 15.0 %NOMS HealthcareHematocrit (Bld) [Volume fraction]34.6 %Low36.0 - 48.0 %NOM HealthcareHemoglobin (Bld) [Mass/Vol]12.1 g/dL12.0 - 16.0 g/dLNOWA HealthcareIMMATURE GRANULOCYTES ABS AUTO0.06HighNOWA HealthcareImmature granulocytes/100 WBC (Bld)0.6 %High0.0 - 0.5 %NOMS HealthcareInterpretation and review of laboratory resultsAbnormalNOWA HealthcareLYMPHOCYTES ABSOLUTE AUTO2.3 NOM HealthcareLymphocytes/100 WBC (Bld)24.3 %20.5 - 60.0 %[facility] CenterH (RBC) [Entitic mass]31.7 pg26.7 - 34.0 pgNOMissouri Southern HealthcareMCHC (RBC) [Mass/Vol] 35.0 g/dL29.9 - 35.2 g/dLHawthorn Children's Psychiatric HospitalMCV (RBC) [Entitic vol]90.6 fL81.0 - 99.0 fLNOWA HealthcareMONOCYTES ABSOLUTE AUTO0.5NOMS HealthcareMonocytes/100 WBC (Bld)5.6 %1.7 - 12.0 %NOM HealthcareNEUTROPHILS ABSOLUTE AUTO6.6HighNOMS HealthcareNeutrophils/100 WBC (Bld)69.0 %43.0 - 75.0 %[facility] HealthcarePlatelet mean volume (Bld) [Entitic vol]9.7 fL9.5 - 13.5 fLNOMissouri Southern HealthcareTBH EO #0.0NOMS [facility] HospitalTB GLE911NUHH [facility] HospitalTB RBC3.82LowNOMS [facility] HospitalTB WBC9.6NOWA HealthcareCLINISYNCNOMS HealthcareUrinalysis macro (dipstick) panel (U)on 84-01-7958Wylfhpoms, UANegativeNegative - 4(70) +++ mg/dLNOMS HealthcareBlood, UANegativeNegative - 50 Max/mcLNOMS HealthcareClarity, UAClearNOMS Healthcare Color, UAYellowNOMS HealthcareGlucose, UANegativeNegative - 2000(110) ++++ mg/dL NOMS HealthcareInterpretation and review of laboratory resultsAbnormalNOWA HealthcareKetones, UANegativeNegative - 160(16) ++++ mg/dLNOWA Healthcare Leukocytes, UATraceNegative - 500+++ John/mcLNOWA HealthcareNitrite, UANegative Negative - PositiveNOMS HealthcarepH, UA6.55 - 9NOMS HealthcareProtein, UA NegativeNegative - 2000(20) ++++ mg/dLNOMS HealthcareSpec Grav, UA1.0051 - 1.03 NOMS HealthcareUrobilinogen, UA2.00.2 - 12 mg/dLNOMS HealthcareNOMS Healthcare CNPNon 06-73-6376ZCRTDkhkqdrky ([place]) SANNA RENDON ([id number]) 1985 F Date Time Provider Department 01/29/25 [...] Date Reviewed: 12/24/2024 Reviewed by: Katherine Negrete APRN.TANK TESTER - Fully Assessed Reason for Visit: Fatigue [...] JOHNSON on 01/30/25[facility]PNon 79-07-3186RPJXIwthkfufw ([place]) SANNA RENDON ([id number]) 1985 F Date Time Provider Department 01/26/25 [...] and gassy Date Reviewed: 12/24/2024 Reviewed by: Penelope, Katherine, BARRATTE OPERATOR.TANK TESTER - Fully Assessed Prescriptions as of 01/26/2025 [...] JOHNSON on 01/26/25NoalCSelect Medical Specialty Hospital - Cincinnati NorthUrinalysis macro (dipstick) panel (U)on 21-24-8318Qlgcdyjkf, UANegative Negative - 4(70) +++ mg/dLNOMS HealthcareBlood, UANegativeNegative - 50 Max/mcL NOMS HealthcareClarity, UAClearNOWA HealthcareColor, UAYellowNOWA Healthcare Glucose, UANegativeNegative - 2000(110) ++++ mg/dLNOMS HealthcareInterpretation and review of laboratory resultsNormalNOWA HealthcareKetones, UANegativeNegative - 160(16) ++++ mg/dLNOMS HealthcareLeukocytes, UANegativeNegative - 500+++ John/mcLNOMS HealthcareNitrite, UANegativeNegative - PositiveNOMS HealthcarepH, UA65 - 9NOMS HealthcareProtein, UANegativeNegative - 2000(20) ++++ mg/dLNOMS HealthcareSpec Grav, UA1.011 - 1.03NOMS HealthcareUrobilinogen, UA0.20.2 - 12 mg/dLNOMS HealthcareNOMS HealthcareTSHon 06-15-5189NWQ Qn1.85 m[IU]/LNormal 0.34-5.60Counts Include 234 B[facility] At [facility] Hospitaler [facility] CenterComment on above:Performed By: #### [id number] #### Braulio [facility] Laboratory [address], [place] [address]Jxpvruykqs macro (dipstick) panel (U)on 13-60-4678Xnhobdgjd, UA NegativeNegative - 4(70) +++ mg/dLNOMS HealthcareBlood, [...] HealthcareNOMS HealthcareCBC W Auto Differential panel (Bld)on 73-72-8069Estiwhyme (Bld) [#/Vol]10*3/uLNormal<0.11CSelect Medical Specialty Hospital - Cincinnati NorthComment on above:Order Comment: Specimen Type: BLOOD SPECIMENOrdering Facility: [facility] Address:[address] [place], [place] [address]Dgfxusvcr By: #### 45711-4 ####[facility] LABCLIA [id number] [place], [place] [address]Yrqvdussx/100 WBC (Bld)0.2 % NormalWVUMedicine Barnesville Hospital on above:Order Comment: Specimen Type: BLOOD SPECIMENOrdering Facility: [facility] Address:[address] [place], [place] [address]Performed By: #### 61696-9 ####[facility] LABCLIA [id number] [place] [address] Differential cell count method Nom (Bld)AutoNormalClevelAnson Community Hospital Comment on above:Order Comment: Specimen Type: BLOOD SPECIMENOrdering Facility: [facility] Address:[address] [place] [address] Performed By: #### 13109-9 ####[facility] LABCLIA [id number] [place], [place] [address]Iahtdbgbjrq (Bld) [#/Vol]0.03 10*3/uLNormal<0.46WV[facility] on above:Order Comment: Specimen Type: BLOOD SPECIMENOrdering Facility: [facility] Address:[address] [place], [place] [address]Performed By: #### 10050-9 ####[facility] LABCLIA [id number] [place], [place] [address]Nrhxkmsraao/100 WBC (Bld)0.4 %NormalWVUMedicine Barnesville Hospital on above:Order Comment: Specimen Type: BLOOD SPECIMENOrdering Facility: [facility] Address:[address] [place], [place] [address]Performed By: #### 73919-9 ####[facility] LABIA [id number] [place], [place] [address]Tzlfesbdekc distribution width (RBC) [Ratio]13.5 %Gqnqgq30.5-15.0[facility] on above: Order Comment: Specimen Type: BLOOD SPECIMENOrdering Facility: [facility] Address:[address] [place], [place] [address]Performed By: #### 82579- 8 ####[facility] LABCLIA [id number] [place], [place] [address]Sukqeoaxuk (Bld) [Volume fraction]34.6 %Low36.0-46.0 [facility] on above:Order Comment: Specimen Type: BLOOD SPECIMENOrdering Facility: [facility] Address:[address] [place], [place] [address]Performed By: #### 44452-4 ####[facility] LABCLIA [id number] [place], [place] [address]Tvffitgrbl (Bld) [Mass/Vol]12.0 g/mEKxsevq66.5-15.5CCleveland Clinic Foundation on above: Order Comment: Specimen Type: BLOOD SPECIMENOrdering Facility: [facility] Address:[address] [place], [place] [address]Performed By: #### 06577- 8 ####[facility] LABCLIA [id number] [place], [place] [address]Aheyurll granulocytes (Bld) [#/Vol]0.04 10*3/uLNormal <0.10[facility] on above:Order Comment: Specimen Type: BLOOD SPECIMENOrdering Facility: [facility] Address:[address] [place], [place] [address]Performed By: #### 40003-8 ####[facility] LABCLIA [id number] [place], [place] [address]Epizipsu granulocytes/100 WBC (Bld)0.5 %NormalWVUMedicine Barnesville Hospital on above: Order Comment: Specimen Type: BLOOD SPECIMENOrdering Facility: [facility] Address:[address] [place], [place] [address]Performed By: #### 78429- 8 ####[facility] LABCLIA [id number] [place], [place] [address]Rwjthlhjkwu (Bld) [#/Vol]2.45 10*3/uLNormal1.00-4.00 [facility] on above:Order Comment: Specimen Type: BLOOD SPECIMENOrdering Facility: [facility] Address:[address] [place], [place] [address]Performed By: #### 07542-5 ####[facility] LABCLIA [id number] [place], [place] [address]Wgtlpyjxzwu/100 WBC (Bld)28.7 %NormalWVUMedicine Barnesville Hospital on above:Order Comment: Specimen Type: BLOOD SPECIMENOrdering Facility: [facility] Address:[address] [place], [place] [address]Performed By: #### 17272-9 ####[facility] LABCLIA [id number] [place], [place] [address]FWJ (RBC) [Entitic mass]31.6 uuSbagef39.0-34.0[facility] on above:Order Comment: Specimen Type: BLOOD SPECIMENOrdering Facility: [facility] Address:[address] [place], [place] [address]Performed By: #### 81732-0 ####[facility] LABCLIA [id number] [place], [place] [address]PDVE (RBC) [Mass/Vol]34.7 g/gWKguqes77.5-36.0[facility] on above: Order Comment: Specimen Type: BLOOD SPECIMENOrdering Facility: [facility] Address:[address] [place], [place] [address]Performed By: #### 33591- 8 ####[facility] LABCLIA [id number] [place], [place] [address]GSX (RBC) [Entitic vol]91.1 yQWzlczp55.0-100.0[facility] on above:Order Comment: Specimen Type: BLOOD SPECIMENOrdering Facility: [facility] Address:[address] [place], [place] [address]Performed By: #### 85994-6 ####[facility] LABCLIA [id number] [place], [place] [address]Osunskfha (Bld) [#/Vol]0.44 10*3/uLNormal<0.87[facility] on above:Order Comment: Specimen Type: BLOOD SPECIMENOrdering Facility: [facility] Address:[address] [place], [place] [address]Performed By: #### 56778- 8 ####[facility] LABCLIA [id number] [place], [place] [address]Oqozfktyj/100 WBC (Bld)5.1 %NormalWVUMedicine Barnesville Hospital on above:Order Comment: Specimen Type: BLOOD SPECIMENOrdering Facility: [facility] Address:[address] [place], [place] [address]Performed By: #### 64175-7 ####[facility] LABCLIA [id number] [place], [place] [address]Bqsmfwtdkyi (Bld) [#/Vol]5.57 10*3/uLNormal1.45-7.50[facility] on above:Order Comment: Specimen Type: BLOOD SPECIMENOrdering Facility: [facility] Address:[address] [place], [place] [address]Performed By: #### 12265-6 ####[facility] LABCLIA [id number] [place], [place] [address]Logbibtunlv/100 WBC (Bld)65.1 %NormalWVUMedicine Barnesville Hospital on above:Order Comment: Specimen Type: BLOOD SPECIMENOrdering Facility: [facility] Address:[address] [place], [place] [address]Performed By: #### 08032-5 ####[facility] LABCLIA [id number] [place], [place] [address]Giccbcuvi RBC (Bld) [#/Vol] 10*3/uLNormal<0.01[facility] on above:Order Comment: Specimen Type: BLOOD SPECIMENOrdering Facility: [facility] Address:[address] [place], [place] [address]Performed By: #### 99618-8 ####[facility] LABCLIA [id number] [place], [place] [address]Uteslzngs RBC/100 WBC (Bld) [Ratio]0.0 /100 WBCNormal [facility] on above:Order Comment: Specimen Type: BLOOD SPECIMENOrdering Facility: [facility] Address:[address] [place], [place] [address]Performed By: #### 76024-0 ####[facility] LABIA [id number] [place], [place] [address]Fftwrema mean volume (Bld) [Entitic vol]9.7 fLNormal9.0-12.7CCleveland Clinic Foundation on above:Order Comment: Specimen Type: BLOOD SPECIMENOrdering Facility: [facility] Address:[address] [place] [address] Performed By: #### 46678-3 ####[facility] LABCLIA [id number] [place], [place] [address]Jhjrpssej (Bld) [#/Vol]260 10*3/uFKdajyr358-344NqhsbfobuWVUMedicine Barnesville Hospital on above:Order Comment: Specimen Type: BLOOD SPECIMENOrdering Facility: [facility] Address:[address] [place], [place] [address]Performed By: #### 81270-8 ####[facility] LABCLIA [id number] [place], [place] [address]EGO (Bld) [#/Vol]3.80 10*6/uLLow3.90-5.20[facility] on above:Order Comment: Specimen Type: BLOOD SPECIMENOrdering Facility: [facility] Address:[address] [place], [place] [address]Uueqgyrge By: #### 12629-3 ####[facility]ENTERIA [id number] [place], [place] [address]PSS (Bld) [#/Vol]8.55 10*3/uL Normal3.70-11.00Glenbeigh HospitalComhelen devos [facility] on above:Order Comment: Specimen Type: BLOOD SPECIMENOrdering Facility: [facility] Address:[address] [place] [address]Hqxdzwgcq By: #### 63246-1 ####[facility] LABCLIA [id number] [place], [place] [address]UQNWWIsc 94-44-9479NJBMIWIffju (SP) Office ([place]) SANNA RENDON ([id number]) 1985 F Date Time Provider Department 12/23/24 11:30 AM KATHERINE NEGRETE During your visit today, we recorded the following information about you: Temperature Pulse Respiration Blood pressure 97.6 degrees 80/minute 16/minute 103/69 Weight Height 94.4 kg 1.677 m Katherine Negrete APRN.TANK TESTER 12/24/2024 9:07 PM Signed NAME: Sanna Rendon CLINIC NO.: [id number] DATE OF SERVICE: December 23, 2024 (Penelope) [...] later in 2018. These were found in [place], [place]. I don't have access to these [...] a target-like rash shortly before presenting to [facility] in 2015 with headaches and was diagnosed [...] vitamin D supplementat (more content not included)...Normal [facility] HospitalComprehensive metabolic 2000 panelon 95-01-8029Rymzfng [Mass/Vol]4.1 g/dLNormal3.9-4.9CC[facility] on above:Order Comment: Specimen Type: BLOOD SPECIMENOrdering Facility: [facility] Address:[address] [place] [id number] By: #### 87965- 8 ####[facility] LABCLIA [id number] FABI DUMONTPHOENIX MEMORIAL HOSPITALVANESSAVOLGA, [place] [address]HLU [Catalytic activity/Vol]43 U/KVnzqfz12-002BzfxxmpfvWVUMedicine Barnesville Hospital on above:Order Comment: Specimen Type: BLOOD SPECIMENOrdering Facility: [facility] Address:[address] [place], [place] [address]Performed By: #### 86574-4 ####[facility] LABCLIA [id number] FABI GREENSEPHOENIX MEMORIAL HOSPITALTEETEEPOR[place], [place] [address]ENW [Catalytic activity/Vol]11 U/LNormal7-38[facility] on above:Order Comment: Specimen Type: BLOOD SPECIMENOrdering Facility: [facility] Address:[address] [place], [place] [address]Performed By: #### 79472- 8 ####[facility] LABCLIA [id number] [facility] [place], [place] [address]Fikep gap [Moles/Vol]12 mmol/LNormal8-15[facility] on above:Order Comment: Specimen Type: BLOOD SPECIMENOrdering Facility: [facility] Address:[address] [place], [place] [address]Performed By: #### 18557-6 ####[facility] LABCLIA [id number] FABI CHERRYPHOENIX MEMORIAL HOSPITALVANESSAVOLGA, [place] [address]QWZ [Catalytic activity/Vol]12 U/IUpt95-96PvgyfwegqWVUMedicine Barnesville Hospital on above:Order Comment: Specimen Type: BLOOD SPECIMENOrdering Facility: [facility] Address:[address] [place], [place] [address]Performed By: #### 49138-2 ####[facility] LABCLIA [id number] [facility] PETERSEPHOENIX [place] [address] Bilirubin [Mass/Vol]0.2 mg/dLNormal0.2-1.3CC[facility] on above:Order Comment: Specimen Type: BLOOD SPECIMENOrdering Facility: [facility] Address:[address] [place], [place] [address]Performed By: #### 69753-0 ####[facility] LABCLIA [id number] [facility] CENTERSEBRADD[place], [place] [address]Czpztyg [Mass/Vol]9.5 mg/dLNormal8.5-10.2CC[facility] on above:Order Comment: Specimen Type: BLOOD SPECIMENOrdering Facility: [facility] Address:[address] [place], [place] [address]Performed By: #### 12441-4 ####[facility] LABCLIA [id number] [place], [place] [address]Qpgcnkmn [Moles/Vol]98 mmol/VBmsvaa84-464UlyclhfgzWVUMedicine Barnesville Hospital on above:Order Comment: Specimen Type: BLOOD SPECIMENOrdering Facility: [facility] Address:[address] [place], [place] [address]Performed By: #### 11537- 8 ####[facility] LABCLIA [id number] [facility] [place]BR[place], [place] [address]KU7 [Moles/Vol]20 mmol/ZEhg38-01MeifrbaagWVUMedicine Barnesville Hospital on above:Order Comment: Specimen Type: BLOOD SPECIMENOrdering Facility: [facility] Address:[address] [place], [place] [address]Performed By: #### 59439-2 ####[facility] LABCLIA [id number] [place], [place] [address]Ngxwlohksf [Mass/Vol]0.54 mg/dL Low0.58-0.96[facility] on above:Order Comment: Specimen Type: BLOOD SPECIMENOrdering Facility: [facility] Address:[address] [place], [place] [address]Performed By: #### 97091-8 ####[facility] LABCLIA [id number] [facility] [place] [address] eGFRcr SerPlBld CKD-EPI 8883296 mL/min/1.73m???Normal>=60[facility] on above:Order Comment: Specimen Type: BLOOD SPECIMENOrdering Facility: [facility] Address:[address] [place], [place] [address]Davenz Comment: Estimated Glomerular Filtration Rate (eGFR) is [...] accurately reflect actual GFR. Performed By: #### 56702-0 ####[facility] LABCLIA [id number] [place], [place] [address]Fzlkggv [Mass/Vol]104 mg/dLHigh 74-99[facility] on above:Order Comment: Specimen Type: BLOOD SPECIMENOrdering Facility: [facility] Address:[address] [place] [address]Khsqla Comment: The [place] Diabetes Association (ADA) provides guidance for cutoff [...] Standards of Medical Care in Diabetes 2016, [place] [employer] Association. Diabetes Care. 2016.39(Suppl 1).Performed By: #### 51084-5 ####[facility] LABCLIA [id number] [place], [place] [address]Mcpugiyhe [Moles/Vol]4.0 mmol/LNormal3.7-5.1CCleveland [facility] on above:Order Comment: Specimen Type: BLOOD SPECIMENOrdering Facility: [facility] Address:[address] [place], [place] [address]Lvjtazvqc By: #### 43362-1 ####[facility] LABCLIA [id number] [place], [place] [address]Bhovkqq [Mass/Vol]6.7 g/dLNormal6.3-8.0[facility] on above:Order Comment: Specimen Type: BLOOD SPECIMENOrdering Facility: [facility] Address:[address] [place], [place] [address]Performed By: #### 36484- 8 ####[facility] LABCLIA [id number] [place], [place] [address]Kjfvup [Moles/Vol]130 mmol/IWrc406-188DpzkmhlwlWVUMedicine Barnesville Hospital on above:Order Comment: Specimen Type: BLOOD SPECIMENOrdering Facility: [facility] Address:[address] [place], [place] [address]Performed By: #### 80913-6 ####[facility] LABCLIA [id number] [place], [place] [address]Sroy nitrogen [Mass/Vol]7 mg/dL Normal7-21[facility] on above:Order Comment: Specimen Type: BLOOD SPECIMENOrdering Facility: [facility] Address:[address] [place], [place] [address]Performed By: #### 62753-9 ####[facility] LABCLIA [id number] [place] [address] Ferritin SerPl-mCncon 15-94-1965Njahfpmn [Mass/Vol]43.5 ng/fFYwcvag66.7-205.1 [facility] on above:Order Comment: Specimen Type: BLOOD SPECIMENOrdering Facility: [facility] Address:[address] [place], [place] [address]Performed By: #### 23909-6, 2276-4, 2132-9 ####[facility] LABCLIA [id number] [place] [address] [place] AMERICAIron and Iron binding capacity panelon 08-26-2025 Iron [Mass/Vol]80 ug/mGEwizmf12-376CvncfvsggWVUMedicine Barnesville Hospital on above: Order Comment: Specimen Type: BLOOD SPECIMENOrdering Facility: [facility] Address:[address] [place], [place] [address]Performed By: #### 53908- 8, 2275-07, 2131-12 ####[facility] LABCLIA [id number] [address] AMERICAIron binding capacity [Mass/Vol]437 ug/mACpug871-263RvosegxouWVUMedicine Barnesville Hospital on above:Order Comment: Specimen Type: BLOOD SPECIMENOrdering Facility: [facility] Address:[address] [place], [place] [address]Performed By: #### 30988- 8, 2275-07, 2131-12 ####[facility] LABCLIA [id number] [address]Iron/TIBC [Molar ratio]18.3 %Pcfncp82.0-57.0[facility] on above:Order Comment: Specimen Type: BLOOD SPECIMENOrdering Facility: [facility] Address:[address] [place], [place] [address]Performed By: #### 96977- 8, 2275-07, 2131-12 ####[facility] LABCLIA [id number] [place] [id number] [facility] AMERICAVit B12 [facility] [id number] (Vitamin B12) [Mass/Vol]328 pg/wNDfglab257-1189AxmeqnjfyCleveland Clinic Foundation on above:Order Comment: Specimen Type: BLOOD SPECIMENOrdering Facility: [facility] Address:[address] [place], [place] [address]Performed By: #### 24776-5, 2275-07, 2131-12 ####[facility] LABCLIA [id number] [place] [id number] [facility]B UA (CLEAN/CATCH) 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 IND.on [id number] URINENegativeNEGATIVENOMS HealthcareBLOOD URINENegative NEGATIVENOMS HealthcareClarity (U)CLEARCLEARNOMS HealthcareColor (U)LT. YELLOW YELLOWNOMS HealthcareGLUCOSE URINE UANegativeNEGATIVE mg/dLNOMS Healthcare Interpretation and review of laboratory resultsAbnormalNOMS HealthcareKetones Ql (U)NegativeNEGATIVE mg/dLNOMS HealthcareLeukocyte esterase Test strip Ql (U) SMALLAbnormalNEGATIVENOMS HealthcareNITRITE URINENegativeNEGATIVENOMS Healthcare pH (U)6.0 [pH]5.0 - 9.0NOMS HealthcarePROTEIN URINENegativeNEG/TRACE mg/dLNOMS HealthcareSPECIFIC GRAVITY URINE<=1.953Rmjsjbkf1.005 - 1.025NOMS HealthcareURINE MICROSCOPIC INDICATEDYESNOMS HealthcareUROBILINOGEN URINE0.2 EU/dL0.2 - 1.0 EU/dLNOWA HealthcareCLINISYNCNOMS HealthcareUS OB CERVICAL LENGTHon 12-16-[address] [address] Ultrasound Report Signed Patient: SNANA RENDON MR#: [id number] : 1985 Acct:[id number] Age/Sex: 39 / F ADM Date: Loc: [facility] 251-[address]: Wilton Herrmann D.O. Ordering Physician: Wilton Herrmann D.O. Date of Service: 12/16/24 Procedure(s): US OB cervical length Accession Number(s): [id number] cc: Wilton Herrmann D.O.; PENELOPE CASAS [address] [address] Patient Name: SANNA RENDON MRN: [id number] date: 1985 Sex: F Assigned Patient Location: [facility] Current Patient Location: Accession/Order Number: [id number] Exam Date: 12/16/2024 20:39 Report Date: 12/16/2024 20:41 At the request of: WILTON MONTEZ DO Procedure: US OB cervical length Limited [...] Beltrán M.D. 12/16/2024 8:41 PM Dictation Location: [place] Electronically authenticated by: [id number] Y Date: 12/16/2024 20:41 Dictated By: Robert Beltrán D.O. Signed By: 12/16/242042 DD/ 40 TD/TT: Client Support Analyst:ELVERadiologcarmen Radiologist, - 12/16/2024 [place] [address] Ultrasound Report Signed Patient: SANNA RENDON MR#: [id number] : 1985 Acct:[id number] Age/Sex: 39 / F ADM Date: Loc: [facility] [address]: Wilton Herrmann D.O. Ordering Physician: Wilton Herrmann D.O. Date of Service: 12/16/24 Procedure(s): US OB cervical length Accession Number(s): [id number] cc: Wilton Herrmann D.O.; PENELOPE CASAS [place] [address] Patient Name: SANNA RENDON MRN: [id number] date: 1985 Sex: F Assigned Patient Location: [facility] Current Patient Location: Accession/Order Number: [id number] Exam Date: 12/16/2024 20:39 Report Date: 12/16/2024 [...] Beltrán M.D. 12/16/2024 8:41 PM Dictation Location: [place] Electronically authenticated by: [id number] Y Date: 12/16/2024 20:41 Dictated By: Robert Beltrán D.O. Signed By: 12/16/242042 DD/ 40 TD/TT: Client Support Analyst: SHILOH HealthcareRadiology Study observation (narrative)NOMS HealthcareUS OB CERVICAL LENGTHOrdered By: Radiologist Radiology on 79-34-9434ESHTHawthorn [facility] Work Phone: aLL THYROID STIM HORMONEon 44-78-9525GJW Qn1.508 m[IU]/LNOMS HealthcareCLINISYNCNOMS HealthcareUrinalysis macro (dipstick) panel (U)on 27-17-2589Qqigvgxwy, UANegativeNegative - 4(70) +++ mg/dLNOWA Healthcare Blood, UANegativeNegative - 50 Max/mcLNOWA HealthcareClarity, UAClearNOMS HealthcareColor, UAYellowNOMS HealthcareGlucose, UANegativeNegative - 2000(110) ++++ mg/dLNOWA HealthcareInterpretation and review of laboratory resultsNormal NOM HealthcareKetones, UANegativeNegative - 160(16) ++++ mg/dLNOWA Healthcare Leukocytes, UANegativeNegative - 500+++ John/mcLNOWA HealthcareNitrite, UA NegativeNegative - PositiveNOMS HealthcarepH, UA65 - 9NOMS HealthcareProtein, UA NegativeNegative - 2000(20) ++++ mg/dLNOWA HealthcareSpec Grav, UA1.011 - 1.03 NOMS HealthcareUrobilinogen, UA1.00.2 - 12 mg/dLNOWA HealthcareNOWA Healthcare Urinalysis macro (dipstick) panel (U)on 78-37-8113Tvohvyxme, UANegativeNegative - 4(70) +++ mg/dLNOMS HealthcareBlood, UANegativeNegative [...] 12 mg/dLNOMS HealthcareNOMS HealthcareGlucose random or fasting- [facility] 11-19-2024 External Glucose Fasting Or Random (Fbs)94[facility] PhiladelphiaUrinalysis macro (dipstick) panel (U)on 03-71-3167Ojnmwvnja, UA NegativeNegative - 4(70) +++ mg/dLNOMS HealthcareBlood, [...] 1.03NOMS HealthcareUrobilinogen, UA0.20.2 - 12 mg/dLNOMS HealthcareNOMS Ezshofsoik35([place])D3 SerPl-[facility] Hospitalon 80-21-334671430791-wethovbpxpoezj D3 [Mass/Vol]32.1 ng/tCWhgkfp66.0-80.0[facility] on above:Order Comment: Specimen Type: BLOOD SPECIMENOrdering Facility: [facility] Address:[address] [place], [place] [address]Result Comment: Classification of 25 [place] Vitamin D status: Deficiency/Insufficiency: < or = 30 ng/ml. Sufficiency/Optimal Levels: 31-80 ng/mL Toxicity: > 100 ng/mL. Test performed by chemiluminescent immunoassay.Performed By: #### 1989-3 ####[facility] LABCLIA [id number] [address] Auto Differential panel (Bld)on 27-63-7121Mkbilqiwu (Bld) [#/Vol]0.03 10*3/uLNormal<0.11CSelect Medical Specialty Hospital - Cincinnati NorthComment on above:Order Comment: Specimen Type: BLOOD SPECIMENOrdering Facility: [facility] Address:[address] [place], [place] [address]Performed By: #### 56710-7 ####[facility] LABIA [id number] [place], [place] [address]Ncdfsmgmb/100 WBC (Bld)0.3 % NormalWVUMedicine Barnesville Hospital on above:Order Comment: Specimen Type: BLOOD SPECIMENOrdering Facility: [facility] Address:[address] [place], [place] [address]Performed By: #### 25162-1 ####[facility] LABCLIA [id number] [place] [address] Differential cell count method Nom (Bld)AutoNormalCSelect Medical Specialty Hospital [facility] North Comment on above:Order Comment: Specimen Type: BLOOD SPECIMENOrdering Facility: [facility] Address:[address] [place] [address] Performed By: #### 77424-4 ####[facility] LABCLIA [id number] [place], [place] [address]Ktocufrxwxu (Bld) [#/Vol]0.05 10*3/uLNormal<0.46[facility] on above:Order Comment: Specimen Type: BLOOD SPECIMENOrdering Facility: [facility] Address:[address] [place], [place] [address]Performed By: #### 90005-6 ####[facility] LABCLIA [id number] [place], [place] [address]Iembkpzcqwd/100 WBC (Bld)0.5 %NormalWVUMedicine Barnesville Hospital on above:Order Comment: Specimen Type: BLOOD SPECIMENOrdering Facility: [facility] Address:[address] [place], [place] [address]Performed By: #### 12263-0 ####[facility] LABCLIA [id number] [place], [place] [address]Jezvukxkbme distribution width (RBC) [Ratio]14.5 %Uwvkzj28.5-15.0[facility] on above: Order Comment: Specimen Type: BLOOD SPECIMENOrdering Facility: [facility] Address:[address] [place], [place] [address]Performed By: #### 81317- 8 ####[facility] LABCLIA [id number] [place], [place] [address]Alyfctmgqj (Bld) [Volume fraction]36.9 %Vlxquj67.0-46.0 [facility] on above:Order Comment: Specimen Type: BLOOD SPECIMENOrdering Facility: [facility] Address:[address] [place], [place] [address]Performed By: #### 91922-7 ####[facility] LABIA [id number] [place], [place] [address]Cdzmmchebl (Bld) [Mass/Vol]13.0 g/xHZevpms18.5-15.5CCleveland Clinic Foundation on above: Order Comment: Specimen Type: BLOOD SPECIMENOrdering Facility: [facility] Address:[address] [place], [place] [address]Performed By: #### 88842- 8 ####[facility] LABCLIA [id number] [place], [place] [address]Xhyyinzg granulocytes (Bld) [#/Vol]10*3/uLNormal<0.10 [facility] on above:Order Comment: Specimen Type: BLOOD SPECIMENOrdering Facility: [facility] Address:[address] [place], [place] [address]Performed By: #### 42802-5 ####[facility] LABCLIA [id number] [place], [place] [address]Kkuvloxv granulocytes/100 WBC (Bld)0.2 %NormalWVUMedicine Barnesville Hospital on above: Order Comment: Specimen Type: BLOOD SPECIMENOrdering Facility: [facility] Address:[address] [place], [place] [address]Performed By: #### 90030- 8 ####[facility] LABIA [id number] [place], [place] [address]Ntibvcqlkys (Bld) [#/Vol]2.50 10*3/uLNormal1.00-4.00 [facility] on above:Order Comment: Specimen Type: BLOOD SPECIMENOrdering Facility: [facility] Address:[address] [place], [place] [address]Performed By: #### 92594-8 ####[facility] LABIA [id number] [place], [place] [address]Pfbnomibisy/100 WBC (Bld)26.3 %NormalWVUMedicine Barnesville Hospital on above:Order Comment: Specimen Type: BLOOD SPECIMENOrdering Facility: [facility] Address:[address] [place], [place] [address]Performed By: #### 34269-1 ####[facility] LABIA [id number] [place], [place] [address]RGF (RBC) [Entitic mass]30.6 auPvrcdz72.0-34.0[facility] on above:Order Comment: Specimen Type: BLOOD SPECIMENOrdering Facility: [facility] Address:[address] [place], [place] [address]Performed By: #### 16861-6 ####[facility] LABCLIA [id number] [place], [place] [address]KNOC (RBC) [Mass/Vol]35.2 g/vCEqubrz66.5-36.0[facility] on above: Order Comment: Specimen Type: BLOOD SPECIMENOrdering Facility: [facility] Address:[address] [place], [place] [address]Performed By: #### 27179- 8 ####[facility] LABCLIA [id number] [place], [place] [address]WIE (RBC) [Entitic vol]86.8 fYMrgpsh64.0-100.0[facility] on above:Order Comment: Specimen Type: BLOOD SPECIMENOrdering Facility: [facility] Address:[address] [place], [place] [address]Performed By: #### 13729-0 ####[facility] LABCLIA [id number] [place], [place] [address]Oafpjudou (Bld) [#/Vol]0.44 10*3/uLNormal<0.87[facility] on above:Order Comment: Specimen Type: BLOOD SPECIMENOrdering Facility: [facility] Address:[address] [place], [place] [address]Performed By: #### 01287- 8 ####[facility] LABCLIA [id number] [place], [place] [address]Ypxmngnej/100 WBC (Bld)4.6 %NormalWVUMedicine Barnesville Hospital on above:Order Comment: Specimen Type: BLOOD SPECIMENOrdering Facility: [facility] Address:[address] [place], [place] [address]Performed By: #### 21602-5 ####[facility] LABCLIA [id number] [place], [place] [address]Azkcuohbjjn (Bld) [#/Vol]6.48 10*3/uLNormal1.45-7.50[facility] on above:Order Comment: Specimen Type: BLOOD SPECIMENOrdering Facility: [facility] Address:[address] [place], [place] [address]Performed By: #### 65879-6 ####[facility] LABCLIA [id number] [place], [place] [address]Gchgptmpjfg/100 WBC (Bld)68.1 %NormalWVUMedicine Barnesville Hospital on above:Order Comment: Specimen Type: BLOOD SPECIMENOrdering Facility: [facility] Address:[address] [place], [place] [address]Performed By: #### 04817-1 ####[facility] LABCLIA [id number] [place], [place] [address]Vmlcalsrz RBC (Bld) [#/Vol] 10*3/uLNormal<0.01[facility] on above:Order Comment: Specimen Type: BLOOD SPECIMENOrdering Facility: [facility] Address:[address] [place], [place] [address]Performed By: #### 07578-8 ####[facility] LABCLIA [id number] [place], [place] [address]Pvwvyjzul RBC/100 WBC (Bld) [Ratio]0.0 /100 WBCNormal [facility] on above:Order Comment: Specimen Type: BLOOD SPECIMENOrdering Facility: [facility] Address:[address] [place], [place] [address]Performed By: #### 84149-0 ####[facility] LABIA [id number] [place], [place] [address]Gzddflnq mean volume (Bld) [Entitic vol]9.8 fLNormal9.0-12.7CCleveland Clinic Foundation on above:Order Comment: Specimen Type: BLOOD SPECIMENOrdering Facility: [facility] Address:[address] [place] [address] Performed By: #### 96985-8 ####[facility] LABCLIA [id number] [place], [place] [address]Bpgpmyzxt (Bld) [#/Vol]327 10*3/wGUqyrui075-061SjwnqkqqyWVUMedicine Barnesville Hospital on above:Order Comment: Specimen Type: BLOOD SPECIMENOrdering Facility: [facility] Address:[address] [place], [place] [address]Performed By: #### 54974-8 ####[facility] LABIA [id number] [place], [place] [address]OET (Bld) [#/Vol]4.25 10*6/uLNormal3.90-5.20[facility] on above:Order Comment: Specimen Type: BLOOD SPECIMENOrdering Facility: [facility] Address:[address] [place], [place] [address]Performed By: #### 78697-1 ####[facility] LABIA [id number] [place], [place] [address]AWX (Bld) [#/Vol]9.52 10*3/uLNormal3.70-11.00[facility] on above: Order Comment: Specimen Type: BLOOD SPECIMENOrdering Facility: [facility] Address:[address] [place], [place] [address]Performed By: #### 62343- 8 ####[facility] LABIA [id number] [place], [place] [address]YXYQAKht 24-68-6674WFTLGANyapq (SP) Office ([place]) SANNA RENDON ([id number]) 1985 F Date Time Provider Department 10/28/24 2:30 PM KATHERINE NEGRETE During your visit today, we recorded the following information about you: Temperature Pulse Respiration Blood pressure 97 degrees 82/minute 16/minute 122/77 Weight Last Period 94.1 kg 10/28/24 Katherine Negrete APRN.TANK TESTER 10/29/2024 9:44 PM Signed NAME: Sanna Rendon CLINIC NO.: [id number] DATE OF SERVICE: October 28, 2024 (Penelope) [...] later in 2018. These were found in [place], [place]. I don't have access to these [...] a target-like rash shortly before presenting to [facility] in 2016 with headaches and was diagnosed [...] negative. Numbness and vi (more content not included)...NormalGlenbeigh Hospital Sisi 74-95-9925NSPKCiacjiufw (NCCAP) SANNA RENDON ([id number]) 1985 F Date Time Provider Department 10/28/24 KATHERINE NEGRETE During your visit today, we recorded the following information about you: Divine Roberta 10/28/2024 2:52 PM Signed Valeri Yeung RN 10/30/2024 8:30 AM Signed Labs resulted. Please advise. MARSHA Barajas Mindy M, PA-C 11/04/2024 8:13 AM Signed Katherine saw this patient last and will be able to advise better of the plan of care. NELI Buck Holly, APRN.CNP 11/05/2024 12:33 PM Signed Spoke with Dr. Moscoso and she is to continue Lovenox 40 daily and add baby asa (81 mg) daily. Please also make sure she is following OB High risk. Labs acceptable at this time. Will monitor. Thanks, Katherine Negrete APRN.Rachael Brwon, MARSHA 11/05/2024 12:51 PM Signed Pt updated. She reports she is unable to take aspirin. It makes my electrolytes go out of whack. I didn't take with my previous pregnancies and I am not comfortable taking this time either. She will continue with Lovenox, as recommended. 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 She denies further questions, needs or [...] 05/28/2024 Encounter Status:Closed by RACHAEL JOHNSON on 11/05/24NormalCMemorial Hospitalprehensive metabolic 2000 panelon 73-51-3797Hjmnewc [Mass/Vol]4.4 g/dLNormal3.9-4.9CC[facility] on above:Order Comment: Specimen Type: BLOOD SPECIMENOrdering Facility: [facility] Address:[address] [place], [place] [address]Performed By: #### 51643-0 ####[facility] LABCLIA [id number] [place], [place] [address]OEQ [Catalytic activity/Vol]55 U/RRsnhqy24-194HhuetzpzsWVUMedicine Barnes[facility] Hospital on above:Order Comment: Specimen Type: BLOOD SPECIMENOrdering Facility: [facility] Address:[address] [place], [place] [address]Performed By: #### 97455-1 ####[facility] LABCLIA [id number] [place], [place] [address]RGF [Catalytic activity/Vol]18 U/LNormal7-38[facility] on above:Order Comment: Specimen Type: BLOOD SPECIMENOrdering Facility: [facility] Address:[address] [place], [place] [address]Performed By: #### 07755- 8 ####[facility] LABCLIA [id number] [facility] [place], [place] [address]Nwgmk gap [Moles/Vol]12 mmol/LNormal8-15[facility] on above:Order Comment: Specimen Type: BLOOD SPECIMENOrdering Facility: [facility] Address:[address] [place], [place] [address]Performed By: #### 44873-8 ####[facility] LABCLIA [id number] [facility] [place], [place] [address]JUM [Catalytic activity/Vol]13 U/DTflotq71-32XarkgogsjWVUMedicine Barnesville Hospital on above:Order Comment: Specimen Type: BLOOD SPECIMENOrdering Facility: [facility] Address:[address] [place], [place] [address]Performed By: #### 96073-7 ####[facility] LABCLIA [id number] [place] [address] Bilirubin [Mass/Vol]0.2 mg/dLNormal0.2-1.3CCleveland Clinic [facility] on above:Order Comment: Specimen Type: BLOOD SPECIMENOrdering Facility: [facility] Address:[address] [place], [place] [address]Performed By: #### 66171-0 ####[facility] LABCLIA [id number] [facility] [place], [place] [address]Djlpidj [Mass/Vol]9.9 mg/dLNormal8.5-10.2CC[facility] on above:Order Comment: Specimen Type: BLOOD SPECIMENOrdering Facility: [facility] Address:[address] [place], [place] [address]Performed By: #### 96323-4 ####[facility] LABIA [id number] [place], [place] [address]Cyfssbwe [Moles/Vol]99 mmol/YIlpnag50-055DkkolibphWVUMedicine Barnesville Hospital on above:Order Comment: Specimen Type: BLOOD SPECIMENOrdering Facility: [facility] Address:[address] [place], [place] [address]Performed By: #### 00568- 8 ####[facility] LABCLIA [id number] [place], [place] [address]MO6 [Moles/Vol]22 mmol/YTpoaye01-03OborigytyWVUMedicine Barnesville Hospital on above:Order Comment: Specimen Type: BLOOD SPECIMENOrdering Facility: [facility] Address:[address] [place], [place] [address]Performed By: #### 79062-8 ####[facility] LABCLIA [id number] [place], [place] [address]Nkjaiociaz [Mass/Vol]0.60 mg/dL Normal0.58-0.96[facility] on above:Order Comment: Specimen Type: BLOOD SPECIMENOrdering Facility: [facility] Address:[address] [place], [place] [address]Performed By: #### 58732-6 ####[facility] LABCLIA [id number] [place], [place] [address]Jkorrxawba and Glomerular filtration rate.predicted panel (S/P/Bld)117 mL/min/1.73m???Normal>=60[facility] on above:Order Comment: Specimen Type: BLOOD SPECIMENOrdering Facility: [facility] Address:[address] [place], [place] [address]Result Comment: Estimated Glomerular Filtration Rate (eGFR) is [...] not accurately reflect actual GFR.Performed By: #### 91156-4 ####[facility] LABCLIA [id number] [place], [place] [address]Rcngxgg [Mass/Vol]101 mg/gFWbpq54-51EinlbwiesWVUMedicine Barnesville Hospital on above:Order Comment: Specimen Type: BLOOD SPECIMENOrdering Facility: [facility] Address:[address] [place] [address]Mfwpmn Comment: The [place] Diabetes Association (ADA) provides guidance for cutoff [...] Standards of Medical Care in Diabetes 2016, [place] [employer]. Diabetes Care. 2016.39(Suppl 1).Performed By: #### 04813-9 ####[facility] LABCLIA [id number] [place], [place] [address]Ubmzxroyp [Moles/Vol]3.5 mmol/LLow3.7-5.1CCleveland Clinic Foundation on above:Order Comment: Specimen Type: BLOOD SPECIMENOrdering Facility: [facility] Address:[address] [place], [place] [address]Performed By: #### 97893-0 ####[facility] LABCLIA [id number] [place], [place] [address]Maiblsq [Mass/Vol]7.6 g/dL Normal6.3-8.0[facility] on above:Order Comment: Specimen Type: BLOOD SPECIMENOrdering Facility: [facility] Address:[address] [place] [address]Tpacrwxch By: #### 50800-0 ####[facility] LABCLIA [id number] [place] [address] Sodium [Moles/Vol]133 mmol/KByh877-701XanxlwwpmWVUMedicine Barnesville Hospital on above:Order Comment: Specimen Type: BLOOD SPECIMENOrdering Facility: [facility] Address:[address] [place], [place] [address]Performed By: #### 01692-8 ####[facility] LABCLIA [id number] [place], [place] [address]Zupn nitrogen [Mass/Vol]7 mg/dLNormal7-21Glenbeigh HospitalComment on above:Order Comment: Specimen Type: BLOOD SPECIMENOrdering Facility: [facility] Address:[address] [place], [place] [address]Performed By: #### 70915-4 ####[facility] LABCLIA [id number] [place], [place] [address]Nulahmfp SerPl-mCncon 90-41-6973Eklmpklf [Mass/Vol]99.6 ng/gJPwnzhh67.7-205.1CSelect Medical Specialty Hospital - Cincinnati NorthComhelen devos [facility] on above:Order Comment: Specimen Type: BLOOD SPECIMENOrdering Facility: [facility] Address:[address] [place], [place] [address]Performed By: #### 2276-4, 45495-0, 9, 3016-3 ####[facility] LABCLIA [id number] [place] [address] [place] OF AMERICAIron and Iron binding capacity panelon 18-90-8353Uxkd [Mass/Vol]72 ug/dMXhacqz78-584JceydkwhgGlenbeigh Hospital Comment on above:Order Comment: Specimen Type: BLOOD SPECIMENOrdering Facility: [facility] Address:[address] [place] [address] Performed By: #### 2276-4, 06095-1, 9, 3016-3 ####[facility] LABCLIA [id number] [place] [address] [place] AMERICAIron binding capacity [Mass/Vol]399 ug/sAZnnf489-765YlpxjyncuGlenbeigh HospitalComhelen devos [facility] on above:Order Comment: Specimen Type: BLOOD SPECIMENOrdering Facility: [facility] Address:[address] [place], [place] [address]Performed By: #### 2276-4, 78219-5, 2131-12, 6-3 ####[facility] LABCLIA [id number] [address] [address] ELECT[place] STATES [facility] HOSPITALIron/TIBC [Molar ratio]18.0 % Zcsayl05.0-57.0[facility] on above:Order Comment: Specimen Type: BLOOD SPECIMENOrdering Facility: [facility] Address:[address] [place] [address] [place] [id number] By: #### 2276-4, 53740-2, 2131-12, 6-3 ####[facility] LABIA [id number] [place] [id number] [facility]ITALTSDoctors [facility] 10-28-2024 Thyroid Stimulating (3Rd Generation) Hormone/ Tsh1.25[facility] SerPl-aCncon [id number] Qn1.250 m[IU]/LNormal 0.270-4.200[facility] on above:Order Comment: Specimen Type: BLOOD SPECIMENOrdering Facility: [facility] Address:[address] [place] [address] [place], [place] [address]Result Comment: If the patient is , TSH reference range varies by gestational period: First Trimester (weeks 9-12): 0.180-2.990 mIU/L Second Trimester: 0.110-3.980 mIU/L Third Trimester: 0.480-4.710 mIU/L Danny Varela et al. A Practical Approach for the Verifications and Determination of Site- and Trimester-Specific Reference Intervals for Thyroid Function tests in . Thyroid, 2019:29:3:412-420.Saeed E, et al. 2017 Guidelines of the [place] [employer] for the Diagnosis and Management of Thyroid Disease during and the . Thyroid, 2017:27:3:315-389. Performed By: #### 2276-4, 09677-5, 9, 6-3 ####[facility] LABCLIA [id number] [address] [address] [facility]PITALVit B12 SerPl-mCncon [id number] (Vitamin B12) [Mass/Vol]483 pg/lFSpasyn125-0290WfxiusoplCleveland Clinic Foundation on above: Order Comment: Specimen Type: BLOOD SPECIMENOrdering Facility: [facility] Address:[address] [place], [place] [address]Performed By: #### 2276- 4, 51453-9, 2132-9, 3016-3 ####[facility] LABCLIA [id number] [facility] [id number] [place], [place] [id number] [facility] OF AMERICACNPNon 76-95-7162UTKNQkgkliuxu (HEMASA) SANNA RENDON ([id number]) 1985 F Date Time Provider Department 10/24/24 [...] Date Reviewed: 08/26/2024 Reviewed by: Katherine Negrete APRN.TANK TESTER - Fully Assessed Reason for Visit: Lab [...] 05/28/2024 Encounter Status:Closed by KAUR DUNHAM on 10/24/24[facility] OB TRANSVAGINALon 72-60-7201GM OB TRANSVAGINALEXAM: US OB TRANSVAGINAL HISTORY: Viability, [...] II, MD, PHD at 21-Oct-2024 08:31:21 AM [facility] TeleradiologyNormalNot AvailableComment on above:Order Comment: US OB VIABILITY PLEASE PERFORM TRANSVAGINAL ULTRASOUND IF INDICATED No LMP recorded.ALL CBC WITH AUTO DIFFon 02-62-6389APCZTBMFA ABSOLUTE XAYB6NGDK HealthcareBasophils/100 WBC (Bld)0.2 %0.2 - 2.0 %NOMS [...] HealthcareMCHC (RBC) [Mass/Vol] 34.6 g/dL29.9 - 35.2 g/dLNOWA HealthcareMCV (RBC) [Entitic vol]86.2 fL81.0 - 99.0 fLNOMS HealthcareMONOCYTES ABSOLUTE AUTO0.6NOMS HealthcareMonocytes/100 WBC (Bld)7.2 %1.7 - 12.0 %NOMS HealthcareNEUTROPHILS ABSOLUTE AUTO5.6NOMissouri Southern Healthcare Neutrophils/100 WBC (Bld)62.8 %43.0 - 75.0 %NOMS HealthcarePlatelet mean volume (Bld) [Entitic vol]10.1 fL9.5 - 13.5 fLNOMissouri Southern HealthcareTB EO #0NOMissouri [facility] Healthcare TBH MNY834BZBQHermann Area District Hospital RBC4.42NOMissouri Southern HealthcareTB WBC8.9NOMissouri Southern Healthcare CLINISYNCDrug Screen, Urineon 28-62-4345Ruvtvtebqgt/MethamphetamineNegative [facility] Centeredica Health SystemBarbituratesNegativeWhite River Junction Va Medical CenterMedica Health System BenzodiazepinesNegativeProMedica Health SystemCocaine MetaboliteNegative Pro[facility] Health SystemEcstasyNegativeWhite River Junction Va Medical CenterMedica Health SystemMethadoneNegative [facility] Centeredica Health SystemOpiatesNegativeWhite River Junction Va Medical CenterMedica Health SystemOxycodoneNegative [facility] Centeredica Health SystemPhencyclidineNegativeWhite River Junction Va Medical CenterMedica Health SystemThc Marijuana, UrineNegativeSumma Health Barberton Campusca Health SystemHBV surface Ag IA Qlon 10-06-2024 Hepatitis B Surface AntigenNegativeMer[facility] Health St[facility] SystemHIV 1+2 Ab+HIV1 p24 Ag IA Qlon 42-12-1539IBF 1&2 AB/AGNegativeMer[address] Health [address] [facility]'s [facility] SystemHemoglobin A1con 17-37-9027KwR7g (Bld) [Mass fraction]5.9 %4.0 - 6.0 %[facility] SystemNo Panel Informationon 23-84-5576RGBO HealthcareTSHon 00-43-2588Ygrtaxk Stimulating (3Rd Generation) Hormone/ Tsh1.131[facility] SystemType and screenon 22-73-2795Tlj/Rh(D)NegativeProCleveland Clinic Euclid HospitalHCG ( test) Ql (U)on 62-32-9946Dblbpuiqvglxfl and review of laboratory resultsAbnormalHawthorn Children's Psychiatric Hospital Preg Test, UrPositiveNegativeSaint John's Hospital HealthcareUrinalysis macro (dipstick) panel (U)on 41-18-7077Njcvwxmqt, UANegativeNegative - 4(70) +++ mg/dL NOMS HealthcareBlood, UANegativeNegative - 50 Max/mcLNOMS HealthcareClarity, UA ClearNOMS HealthcareColor, UAYellowNOMS HealthcareGlucose, UANegativeNegative - 1999(110) ++++ mg/dLNOMS HealthcareInterpretation and review of laboratory resultsNormalNOMS HealthcareKetones, UANegativeNegative - 160(16) ++++ mg/dLNOMS HealthcareLeukocytes, UANegativeNegative - 500+++ John/mcLNOMS HealthcareNitrite, UANegativeNegative - PositiveNOMS HealthcarepH, UA65 - 9NOMS HealthcareProtein, UANegativeNegative - 2000(20) ++++ mg/dLNOMS HealthcareSpec Grav, UA1.0251 - 1.03NOMS HealthcareUrobilinogen, UA0.20.2 - 12 mg/dLNOMS HealthcareNOMS HealthcareUS OB TRANSVAGINALon 85-64-9485[place] [address] Ultrasound Report Signed Patient: SANNA RENDON MR#: [id number] : 1985 Acct:[id number] Age/Sex: 38 / F ADM Date: 09/11/24 Loc: US Attending Dr: Wilton Herrmann D.O. Ordering Physician: Wilton Herrmann D.O. Date of Service: 09/11/24 Procedure(s): US OB transvaginal Accession Number(s): [id number] cc: Wilton Herrmann D.O.; PENELOPE CASAS [place] [id number] Patient Name: SANNA RENDON MRN: [id number] date: 1985 Sex: F Assigned Patient Location: US Current Patient Location: US Accession/Order Number: [id number] Exam Date: 09/11/2024 11:34 Report Date: 09/11/2024 11:36 At the request of: WLITON HERRMANN DO Procedure: US OB transvaginal US [...] Montano M.D. 09/11/2024 11:36 AM Dictation Location: [place] [address] Electronically authenticated by: [id number] Y Date: 09/11/2024 11:36 Dictated By: Prudence Montano M.D. Signed By: 09/11/24 1138 DD/ 1136 TD/TT: Client Support Analyst:TBHRadiology, Radiologist, MD - 09/11/2024 [place] [address] Ultrasound Report Signed Patient: SANNA RENDON MR#: [id number] : 1985 Acct:[id number] Age/Sex: 38 / F ADM Date: 09/11/24 Loc: US Attending Dr: Wilton Herrmann D.O. Ordering Physician: Wilton Herrmann D.O. Date of Service: 09/11/24 Procedure(s): US OB transvaginal Accession Number(s): [id number] cc: Wilton Herrmann D.O.; PENELOPE CASAS [address] [address] Patient Name: SANNA RENDON MRN: [id number] date: 1985 Sex: F Assigned Patient Location: US Current Patient Location: US Accession/Order Number: [id number] Exam Date: 09/11/2024 11:34 Report Date: 09/11/2024 [...] Montano M.D. 09/11/2024 11:36 AM Dictation Location: [place] [address] Electronically authenticated by: [id number] Y Date: 09/11/2024 11:36 Dictated By: Prudence Montano M.D. Signed By: 09/11/24 1138 DD/ 1136 TD/TT: Client Support Analyst: SHILOH HealthcareRadiology Study observation (narrative)[facility] OB TRANSVAGINALOrdered By: Radiologist Radiology on 25-75-3357OKW[facility] Healthcare Work Phone: bhcg Quanton 17-94-8030KQY.beta subunit Iv20545 m[IU]/mLHigh1-3[facility] CenterComment on above:Result Comment: 'F NON < 1 - 3' ' 0.2 - 1 WEEK = 5 TO 50' ' 1 - 2 WEEKS = 50 - 500' ' 2 - 3 WEEKS = 100 - 5000' ' 3 - 4 WEEKS = 500 - 16481' ' 4 - 5 WEEKS = 1000 - 06942' ' 5 - 6 WEEKS = 99751 - 014903' ' 6 - 8 WEEKS = 68969 - 683975' ' 8 - 12 WEEKS = 67241 - 415778'Performed By: #### [id number] #### [facility] [address] [place], [place] [address]Vkpqdojdvw Visit Summaryon 92-55-0545Yvfvyywaom Visit Summary Ambulatory Visit Summary SANNA RENDON :1985 Visit Date:09/07/2024 Ambulatory Visit Instructions Your Diagnosis Viral URI with cough Cough Your Care Team Attending Physician - Romulo Chiu PA-C Primary Care Physician - Penelope CASAS DO, FAAFP This Is Your Medications List Contact prescribing physician if questions or concerns enoxaparin (Lovenox 40 mg/0.4 mL Injection) ergocalciferol (Vitamin D) fluticasone nasal (Flonase 0.05 mg/inh Duryea) levothyroxine (levothyroxine 25 mcg (0.025 mg) Tab) [...] EDT With: Penelope CASAS DO, FAAFP Where: [facility] [address] [facility], [place] [address]- Medications What How Much When Instructions Unchanged enoxaparin (Lovenox 40 mg/ 0.4 mL Injection) 40 Milligram Subcutaneous Every 24 hours Contact prescribing physician if questions or concerns Unchanged ergocalciferol (Vitamin D) 2,000 International unit By Mouth Every week Contact prescribing physician if questions or concerns Unchanged fluticasone nasal (Flonase 0.05 mg/ inh Duryea) 2 Sprays Nasal Inhalation Every day each [...] you for choosing us for your care. [facility] Medicine Office/Clinic Noteon 57-18-2871Sonpyc Medicine Office/Clinic NoteBrigham And Women'[facility] Medicine Office/Clinic Note Chief Complaint cough, sinus [...] created with voice recognition software. Occasional wrong-word or???pyfen-x-yylv??? substitutions may have occurred due to the [...] days ago on Sunday. Has been using vdbo-vga-upxdvkb cough drops and Flonase for her allergies. [...] duration. Discussed antibiotics un (more content not included)...[facility] Medical CenterComment on above:Result Comment: Electronically Signed By: Aram QUINTEROS, Romulo Lynn\.br\Date and Time Signed: 09/07/2509:46 EDTCNPNon 22-50-6365KHQIWelxyidaj (HEMASA) SANNA RENDON ([id number]) 1985 F Date Time Provider Department 09/02/24 RACHAEL JOHNSON ROD During your visit today, we recorded [...] 12:52 PM Signed No change in meds. Racheal Johnson RN 09/03/2024 1:25 PM Signed Pt [...] Date Reviewed: 08/26/2024 Reviewed by: Katherine Negrete APRN.TANK TESTER - Fully Assessed Reason for Visit: Patient [...] 05/28/2024 Encounter Status:Closed by RACHAEL JOHNSON on 09/03/24[facility] Quanton 23-89-9754UVT.beta subunit Qn558 m[IU]/mLHigh1-3[facility] CenterComment on above:Result Comment: 'F NON < 1 - 3' ' 0.2 - 1 WEEK = 5 TO 50' ' 1 - 2 WEEKS = 50 - 500' ' 2 - 3 WEEKS = 100 - 5000' ' 3 - 4 WEEKS = 500 - 06168' ' 4 - 5 WEEKS = 1000 - 67664' ' 5 - 6 WEEKS = 71539 - 861162' ' 6 - 8 WEEKS = 34129 - 504255' ' 8 - 12 WEEKS = 57544 - 606822'Performed By: #### [id number] #### [facility] [address], [place] [address]MgWU Quanton 71-77-7654SWO.beta subunit Qn188 m[IU]/mLHigh1-3 [facility] HospitalComment on above:Result Comment: 'F NON < 1 - 3' ' 0.2 - 1 WEEK = 5 TO 50' ' 1 - 2 WEEKS = 50 - 500' ' 2 - 3 WEEKS = 100 - 5000' ' 3 - 4 WEEKS = 500 - 87673' ' 4 - 5 WEEKS = 1000 - 07214' ' 5 - 6 WEEKS = 53091 - 268713' ' 6 - 8 WEEKS = 22175 - 823398' ' 8 - 12 WEEKS = 43873 - 610487'Performed By: #### [id number] #### [facility] [address], [place] [address]HLOSpk 47-91-3473EVLBSjqmnhsdm (HEMASA) SANNA RENDON ([id number]) 1985 F Date Time Provider Department 08/26/24 [...] Date Reviewed: 08/26/2024 Reviewed by: Katherine Negrete APRN.TANK TESTER - Fully Assessed Reason for Visit: Lab Orders [1688] Primary Visit Diagnosis:Antiphospholipid antibody positive [R76.0] Other Visit Diagnoses: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] Malaise and fatigue [R53.81, R53.83] Vitamin D deficiency [E55.9] Order(s):COMPLETE BLOOD COUNT AND DIFFERENTIAL [SQCBCDIF] Order #: [id number] FUTURE COMPREHENSIVE METABOLIC PANEL [SQCMP] Order #: [id number] FUTURE THYROID STIMULATING HORMONE [SQTSH] Order #: [id number] FUTURE IRON AND TIBC [SQIRON] Order #: [id number] FUTURE FERRITIN [SQFERR] Order #: [id number] FUTURE VITAMIN D 25 HYDROXY [SQVITD] Order #: [id number] FUTURE VITAMIN B12 [SQB12] Order #: [id number] FUTURE Prescriptions as of 08/26/2024 - enoxaparin [...] 05/28/2024 Encounter Status:Closed by KATHERINE NEGRETE on 08/26/24[facility] Quanton 18-11-6661KJC.beta subunit Qn83 m[IU]/mLHigh1-3FAdena Regional Medical CenterComment on above:Result Comment: 'F NON < 1 - 3' ' 0.2 - 1 WEEK = 5 TO 50' ' 1 - 2 WEEKS = 50 - 500' ' 2 - 3 WEEKS = 100 - 5000' ' 3 - 4 WEEKS = 500 - 92331' ' 4 - 5 WEEKS = 1000 - 22473' ' 5 - 6 WEEKS = 81218 - 460841' ' 6 - 8 WEEKS = 35477 - 350197' ' 8 - 12 WEEKS = 68110 - 386265'Performed By: #### [id number] #### [facility] [address], [place] [address]KsAK Quanton 81-53-4625GRJ.beta subunit Qn22 m[IU]/mLHigh1-3 [facility] HospitalComment on above:Result Comment: 'F NON < 1 - 3' ' 0.2 - 1 WEEK = 5 TO 50' ' 1 - 2 WEEKS = 50 - 500' ' 2 - 3 WEEKS = 100 - 5000' ' 3 - 4 WEEKS = 500 - 20072' ' 4 - 5 WEEKS = 1000 - 15954' ' 5 - 6 WEEKS = 57169 - 512015' ' 6 - 8 WEEKS = 19017 - 175057' ' 8 - 12 WEEKS = 54203 - 786077'Performed By: #### [id number] #### [facility] [address], [place] [address]OEAGZDECNFlsfdxa By: SYSTEM SYSTEM on 09-83-6516PPH.beta subunit Qn22 m[IU]/mLHigh1 - 3 mIU/mLRemisol ChemComment on above:Result Comment: 'F NON < 1 - 3' ' 0.2 - 1 WEEK = 5 TO 50' ' 1 - 2 WEEKS = 50 - 500' ' 2 - 3 WEEKS = 100 - 5000' ' 3 - 4 WEEKS = 500 - 22054' ' 4 - 5 WEEKS = 1000 - 29453' ' 5 - 6 WEEKS = 24425 - 907752' ' 6 - 8 WEEKS = 32106 - 217621' ' 8 - 12 WEEKS = 26072 - 257849'TSH Qn1.86 m[IU]/LNormal0.34 - 5.60 mcIU/mLRemisol ChemTSHon 90-55-8653WME Qn1.86 m[IU]/LNormal0.34-5.60Mercy HospitalComment on above:Performed By: #### [id number] #### [facility] [address], [place] [address]XNT ( test) Ql (U)on 75-82-0982Msmvrvaccbsebj and review of laboratory resultsNoSurgical Specialty Hospital-Coordinated HlthPreg Test, UrNegativeNegative Replaced by [facility].Interpretation:on 97-03-0725GQO Ab IA QlComment Invalid Interpretation [facility] Memorial HospitalComment on above:Result Comment: Not infected with HCV unless early or acute infection is suspected (which may be delayed in an immunocompromised individual), or other evidence exists to indicate HCV infection. Performed at: [address] [id number] PhD Jd Garciaformed By: #### [id number] #### [facility] [address], [place] [address]MTF Antibody RFX to Quant PCRon 44-03-4441DKN Ab IA Ql Non-ReactiveInvalid Interpretation CodeNon ReactiveMercy Hospital Comment on above:Result Comment: Performed at: [address] [id number] PhD Jd Garciaformed By: #### [id number] #### [facility] [address], [place] [address]NLY Screen 4th Generation wRfxon 58-82-1950ASD 1+2 Ab+HIV1 p24 Ag IA QlNon-ReactiveInvalid Interpretation CodeNon ReactiveMercy HospitalComment on above:Result Comment: HIV-1/HIV-2 antibodies and HIV-1 p24 antigen were NOT detected. There is no laboratory evidence of HIV infection. HIV Negative Performed at: [address] [id number] PhD Jd Garciaformed By: #### [id number] #### [facility] [address], [place] [address]Vsp Be Agon 46-94-8609WZM e Ag IA QlNegativeInvalid Interpretation CodeNegativeMercy HospitalComment on above:Result Comment: Performed at: [address] [id number] PhD Jd Garciaformed By: #### [id number] #### [facility] [address], [place] [address]Wqa Bs Agon 82-44-3868DCJ surface Ag IA QlNegativeInvalid Interpretation CodeNegativeMercy HospitalComment on above:Result Comment: Performed at: [address] [id number] PhD Jd Garciaformed By: #### [id number] #### [facility] [address], [place] [address]IWVPANHXYQgakuwv By: SYSTEM SYSTEM on 27-23-4577Nclnfxg [Mass/Vol]5.0 g/dLNormal3.3 - 5.0 gm/dLRemisol ChemAlbumin/Globulin [Mass ratio] 1.6 {ratio}Normal1.1 - 2.2Remisol ChemALP [Catalytic activity/Vol]49 [iU]/d Foriwm18 - 98 Int._Unit/LRemisol ChemALT No additional P-5'-P [Catalytic activity/Vol]18 [iU]/dNormal6 - 46 Int._Unit/LRemisol ChemAnion gap [Moles/Vol] 13 mmol/LNormal6 - 16 mEq/LRemisol ChemAST [Catalytic activity/Vol]15 [iU]/d Normal5 - 43 Int._Unit/LRemisol ChemBilirubin [Mass/Vol]0.4 mg/dLNormal0.0 - 1.1 mg/dLRemisol ChemCalcium [Mass/Vol]10.0 mg/dLNormal8.9 - 11.1 mg/dLRemisol Chem Chloride [Moles/Vol]100 mmol/TFzd124 - 111 mmol/LRemisol ChemCO2 [Moles/Vol]25 mmol/SOvnbdq70 - 31 mmol/LRemisol ChemCreatinine [Mass/Vol]0.7 mg/dLNormal0.5 - 1.3 mg/dLRemisol AuablMDR893 mL/min/1.73 g6Pmjzal>=59mL/min/1.73 w0Qlveuwc Chem Globulin (S) [Mass/Vol]3.1 g/dLNormal1.4 - 4.0 gm/dLRemisol ChemGlucose [Mass/Vol]82 mg/tZTxodbo14 - 199 mg/dLRemisol ChemPotassium [Moles/Vol]3.8 mmol/LNormal3.5 - 5.3 mmol/LRemisol ChemProtein [Mass/Vol]8.1 g/dLHigh6.0 - 7.8 gm/dLRemisol ChemSodium [Moles/Vol]134 mmol/AIus420 - 145 mmol/LRemisol ChemUrea nitrogen [Mass/Vol]7 mg/dLNormal5 - 21 mg/dLRemisol ChemUrea nitrogen/Creatinine [Mass ratio]10 mg/giYuomjb77 - 20Remisol ChemCMPon 91-29-2462Tpvxbwm [Mass/Vol]5.0 g/dLNormal3.3-5.0[facility] Comment on above:Performed By: #### [id number] #### [facility] [address], [place] [address]Emqjmgc/Globulin (S) [Mass conc ratio]1.9Gbdqtt5.1-2.2FAdena Regional Medical CenterComment on above:Performed By: #### [id number] #### [facility] [address] [place] [address]VKG [Catalytic activity/Vol]49 Int._Unit/QOfstzn34-79GfrquqMercy HospitalComment on above:Performed By: #### [id number] #### [facility] [address], [place] [address]TLL No additional P-5'-P [Catalytic activity/Vol]18 Int._Unit/L Normal6-46Mer[facility] HospitalComment on above:Performed By: #### [id number] #### [facility] [address] [place] [address]Gbkge gap [Moles/Vol]13 mmol/LNormal6-16Mer[facility] HospitalComment on above:Performed By: #### [id number] #### [facility] [address] [place] [address]45[address]FDZ [Catalytic activity/Vol]15 Int._Unit/LNormal5-43Mer[facility] HospitalComment on above:Performed By: #### [id number] #### [facility] [address] [place] [address]Qefgtmqhl [Mass/Vol]0.4 mg/dLNormal0.0-1.1FAdena Regional Medical CenterComment on above:Performed By: #### [id number] #### [facility] [address] [place] [address]Ffueftm [Mass/Vol]10.0 mg/dLNormal8.9-11.1FAdena Regional Medical CenterComment on above:Performed By: #### [id number] #### [facility] [address] [place] [address] 19[address]Fogberwr [Moles/Vol]100 mmol/ZNfj801-316YyxzisMercy HospitalComment on above:Performed By: #### [id number] #### [facility] [address] [place] [address] 18170ZG6 [Moles/Vol]25 mmol/IXwbeyh84-29BlranzMercy Hospital Comment on above:Performed By: #### [id number] #### [facility] [address], [place] [address]Guzodvapxa [Mass/Vol]0.7 mg/dLNormal0.5-1.3FAdena Regional Medical CenterComment on above:Performed By: #### [id number] #### [facility] [address], [place] [address]Zitvmatj (S) [Mass/Vol]3.1 g/dLNormal1.4-4.0Mercy HospitalComment on above:Performed By: #### [id number] #### [facility] [address], [place] [address]Gwphwet [Mass/Vol]82 mg/iLJclsad29-689HnylapMercy HospitalComment on above:Performed By: #### [id number] #### [facility] [address], [place] [address]Gxvapexki [Moles/Vol]3.8 mmol/LNormal3.5-5.3FAdena Regional Medical CenterComment on above:Performed By: #### [id number] #### [facility] [address], [place] [address]Wnxdwet [Mass/Vol]8.1 g/dLHigh6.0-7.8Mer[facility] HospitalComment on above:Performed By: #### [id number] #### [facility] [address], [place] [address]Zyagvc [Moles/Vol]134 mmol/DZms808-054YmnrkyMercy HospitalComment on above:Performed By: #### [id number] #### [facility] [address], [place] [address]Hbtg nitrogen [Mass/Vol]7 mg/dLNormal5-21Mer[facility] HospitalComment on above:Performed By: #### [id number] #### [facility] [address], [place] [address]Zxkq nitrogen/Creatinine [Mass ratio]10 No FjlqeNpurck91-34 [facility] HospitalComment on above:Performed By: #### [id number] #### [facility] [address] [place], [place] [address]tQMIfb 95-53-4375qDGL271 mL/min/1.73 r6Rfgzmn>=59Fishamadou [facility] CenterComment on above:Performed By: #### [id number] #### [facility] [address] [facility] [facility] [place], [place] [address]Oeryol Medicine Office/Clinic Noteon 98-83-0248Gnsriz Medicine Office/Clinic NoteFami Medicine Office/Clinic Note HPI [...] RESENDEZ FAAFP, Penelope Tony, FAM, PED [address], [place] [address]- Additional Instructions: Patient Education Bradycardia, [...] exam Historical Abdominal pain (more content not included)...[facility] Comment on above:Result Comment: Electronically Signed By: Inez Banegas\.br\Date and Time Signed: 07/08/24 08:54 EDTAmbulatory Visit Summaryon 57-57-7951Dchucqqcqb Visit SummaryAmbulatory Visit Summary SANNA RENDON :1985 [...] mg Tab) fluticasone nasal (Flonase 0.05 mg/inh Duryea) levothyroxine (levothyroxine 25 mcg (0.025 mg) Tab) [...] EDT With: Penelope CASAS DO, FAAFP Where: [facility] [address] [place] [address]- You Need to Schedule the Following Appointments Follow Up with Penelope CASAS DO, FAAFP, FAM, PED When: Where: [address] [place] [address]- Medications What How Much When Why Instructions [...] Unchanged fluticasone nasal (Flonase 0.05 mg/ inh Duryea) 2 Sprays Nasal Inhalation Every day each [...] you for choosing us for your care. [facility] CenterBhG Quanton 16-51-6248OQQ.beta subunit Qn1 m[IU]/mLNormal1-3[facility] CenterComment on above:Result Comment: 'F NON < 1 - 3' ' 0.2 - 1 WEEK = 5 TO 50' ' 1 - 2 WEEKS = 50 - 500' ' 2 - 3 WEEKS = 100 - 5000' ' 3 - 4 WEEKS = 500 - 36962' ' 4 - 5 WEEKS = 1000 - 56974' ' 5 - 6 WEEKS = 77079 - 101226' ' 6 - 8 WEEKS = 31971 - 618668' ' 8 - 12 WEEKS = 19859 - 529457'Performed By: #### [id number] #### [facility] [address], [place] [address]BEJFM 2 Mutationson 48-80-6747WBDFK InterpretationSee Note [facility] Medical CampusComment on above:Result Comment: Indication for testing: Determine genetic contribution to hyperhomocysteinemia. 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 The [employer] Practice Guidelines indicate [...] a contributing factor to hyperhomocysteinemia. Variants Tested: c.665C>T(p.Gml169Cir) and c.1286A>C(p.Flv155Jxo). (legacy names C677T and R2547D, respectively). Clinical Sensitivity: Undefined; hyperhomocysteinemia is caused [...] developed and its performance characteristics determined by [facility]. It has not been cleared or approved by the [place] Food and Drug Administration. This test was performed in a CLIA certified laboratory and is intended for clinical purposes. Counseling and informed consent are recommended for genetic testing. Consent forms are available online. Performed By: [facility] [address] [place] [address] Labor Standards Director: Yayo Moncada MD, PhD CLIA Number: [id number] Mutation: [id number]thoColorado Hospital at St. Anthony Medical CampusMTHFR Mutation: I002EVtqyuuejTqsucdZvxvqOrthoColorado Hospital at St. Anthony Medical Campus MTHFR PCR SpecimenWhole BloodNormEating Recovery Center a Behavioral HospitalAnti-nuclear Ab (NASEEM) Reflexon 12-01-6386Kjpx-Nuclear Ab (NASEEM), IgG by ELISANot detectedNormal None DetVail Health HospitalComment on above:Result Comment: If suspicion of connective tissue disease is strong and NASEEM EIA is negative, consider testing for NASEEM by IFA ([id number]). No antibodies to Anti-Nuclear Antibodies (NASEEM) detected. The Extractable Nuclear Antigen Antibodies (FOREIGN BANKNOTE TELLER TRADER, Christianson, SSA 52, SSA 60, Scleroderma, Brianna-1 [...] dsDNA, histones, SS-A (Ro), SS-B (La), Christianson, Christianson/FOREIGN BANKNOTE TELLER TRADER, Scl-70, Brianna-1, centromeric proteins, other antigens extracted from the HEp-2 cell nucleus. NASEEM ALEX assays have been reported to have lower sensitivities than NASEEM IFA for systemic autoimmune rheumatic diseases (SARD). Negative results do not necessarily rule out SARD. Performed By: [facility] [address] [place] [address] Labor Standards Director: Yayo Moncada MD, PhD CLIA Number: [id number] (Histidyl-tRNA Synthetase) Ab, IgGon 44-17-2480Jx-1 (Histidyl-tRNA Synthetase) Ab, IgG0 AU/mLNormal0-40[facility] Comment on above:Result Comment: INTERPRETIVE INFORMATION: Brianna-1 Antibody, IgG 29 AU/mL or less.........Negative 30-40 AU/mL..............Equivocal 41 AU/mL or greater......Positive Presence of Brianna-1 (antihistidyl transfer RNA [t-RNA] synthetase) antibody is associated with polymyositis and may also be seen in patients with dermatomyositis. Brianna-1 antibody is associated with pulmonary involvement (interstitial lung disease), Raynaud phenomenon, arthritis, and naval aircrewman mechanical's hands (implicated in antisynthetase syndrome). Performed By: [facility] [address] [place], [place] [id number] Labor Standards Director: Yayo Moncada MD, PhD CLIA Number: [id number] and SSB Abs, IgGon 18-72-1670RUU 52 (Ro) (KELLEN) Ab, IgG1 AU/mLNormal0-40Cent[facility] Peaks HospitalComment on above:Result Comment: INTERPRETIVE INFORMATION: SSA-52 [...] interstitial lung disease.SSB (La) (KELLEN) Ab, IgG0 AU/mLNormal0-40[facility] Comment on above:Result Comment: INTERPRETIVE INFORMATION: [...] (PSS) also have this antibody. Performed By: [facility] [address] [id number] Labor Standards Director: Yayo Moncada MD, PhD CLIA Number: [id number] Antibodies, IgG/IgMon 38-60-0976Vtqbykbubko Ab IgG95 GPLCritically high<=14[facility] HospitalComment on above: Result Comment: INTERPRETIVE INFORMATION: [...] other criteria phospholipid antibody tests. Performed by [facility], [address] [place] [address] www.[facility], Zhang Bledsoe MD, Lab. Director [place] Number: [id number] Ab IgM<10Normal<=12[facility] HospitalComment on above:Result Comment: INTERPRETIVE INFORMATION: Anti- [...] other criteria phospholipid antibody tests. Performed by [facility], [address] [place] [address] www.[facility], Zhang Bledsoe MD, Lab. Director CLIA Number: [id number] (Smooth Muscle) Antibody, IgAon 29-13-3235P-Actin Ab, IgA1.8 UnitsNormal0.0-24.9[facility] HospitalComment on above: Result Comment: INTERPRETIVE INFORMATION: F-Actin (Smooth Muscle)Antibody, IgA 20.0 Units or less.....Negative 20.1 - 24.9 Units......Equivocal 25.0 Units or greater..Positive The presence of IgA antibodies against F-Actin in patients having positive serologic markers for celiac disease, such as antiendomysial, anti-transglutaminase, and/or anti-gliadin peptide IgA, indicates the presence of intestinal villus atrophy. Positive results should be confirmed with biopsy. Performed By: [facility] [address] [place] [address] Labor Standards Director: Yayo Moncada MD, PhD CLIA Number: [id number] Ab, IgG by ELISAon 45-46-3951djEYM Ab, IgG by ALEX 4 IUNormal0-24[facility] HospitalComment on above:Result Comment: INTERPRETIVE INFORMATION: Double-Stranded DNA (dsDNA) Ab IgG ALEX 24 IU or less........Negative 25-30 IU.............Borderline Positive 30-60 IU.............Low Positive 60-200 IU............Positive 201 IU or greater....Strong Positive Positivity for anti-double stranded DNA (anti-dsDNA) IgG antibody is a diagnostic criterion of systemic lupus erythematosus (SLE). Specimens are initially screened by enzyme-linked immunosorbent assay (ALEX). If ordered as reflex ([id number]), positive ALEX results (>24 IU) will be [...] recommendations for testing may be found at [email or web address]. Performed by [facility], [address] [place] [address],[place] [address] www.[facility], Zhang Bledsoe MD, Lab. Director CLIA Number: [id number] Proteinon 38-81-5146QMX [Mass/Vol]mg/LNormal 0.0-5.0[facility] Peaks HospitalComment on above:Performed By: #### CRP #### [facility] [address] [place] [address] Yeqrqmngwdnzy Rateon 69-33-4651Fzkolkqlrwhqm Rate18 mmNormal0-20 [facility] HospitalComment on above:Result Comment: ESR Units mm/Hr Performed By: #### ESR #### [facility] [address] [place] [address] Xpiqag Medicine Office/Clinic Noteon 18-47-0590Dmiejr Medicine Office/Clinic NoteFahunt memorial hospital Medicine Office/Clinic Note Chief Complaint C/O: [...] bedtime), # 90 tab(s), Refills(s) 4, Pharmacy: [facility], 168, cm, 06/30/24 8:36:00 EST, Height/Length Dosing, 97.2, kg, 06/30/24 8:36:00 EST, Weight Dosing Total time spent preparing the chart, conducting of the encounter with the patient and family and time spent documenting, reviewing, and ordering tests was 25 minutes. Follow-up With When Contact Information Penelope CASAS DO, FAAFP, CHRIS, PED In 2 months [address], [place] [address]- ([phone] (more content not included)...[facility] Comment on above:Result Comment: Electronically Signed By: Penelope CASAS DO, FAAFP\.br\Date and Time Signed: 06/30/24 09:24 ESTRECURRENT VAGINITIS (HTRX)on 46-56-5097YXPKUOGZT ECTYURF0ZEML HealthcareATOPOBIUM VAGINAENot detectedNOMS HealthcareBVAB 2,3 (BACTERIAL VAGINOSIS ASSOCIATED BACTERIA 2, 3); MOBILUNCUS [id number] HealthcareBVAB 2,3 (BACTERIAL VAGINOSIS ASSOCIATED BACTERIA 2, 3); MOBILUNCUS SPPNot detectedNOMS HealthcareCANDIDA ALBICANS, PARAPSILOSIS, [id number] HealthcareCANDIDA ALBICANS, PARAPSILOSIS, TROPICALISNot detected NOMS HealthcareCANDIDA QZQUVIMU6DTSY HealthcareCANDIDA GLABRATANot detectedNOMS HealthcareCANDIDA ZAQMMK3NDLE HealthcareCANDIDA KRUSEINot detectedNOMS HealthcareCHLAMYDIA JHHTMUVPKXB5VQIE HealthcareCHLAMYDIA TRACHOMATISNot detected NOMS HealthcareGARDNERELLA MJIYQFHVP4DMSJ HealthcareGARDNERELLA VAGINALISNot detectedNOMS HealthcareMEGASPHAERA (TYPES 1, 2)0NOMS HealthcareMEGASPHAERA (TYPES 1, 2)Not detectedNOMS HealthcareMYCOPLASMA LVLXWFTUNA3ECZH Healthcare MYCOPLASMA GENITALIUMNot detectedNOMS HealthcareNEISSERIA UBJOCTYLXYA1VUEW HealthcareNEISSERIA GONORRHOEAENot detectedNOMS HealthcareTRICHOMONAS VAGINALIS0 NOMS HealthcareTRICHOMONAS VAGINALISNot detectedNOMS HealthcareNOMS Healthcare Urinalysis macro (dipstick) panel (U)on 40-28-9047Sjidebshf, UANegativeNegative - 4(70) +++ mg/dLNOMS HealthcareBlood, UANegativeNegative [...] - 12 mg/dLNOMS HealthcareNOMS HealthcareAmbulatory Visit Summaryon 35-76-9299Ayuqtglqwm Visit SummaryAmbulatory Visit Summary SANNA RENDON :1985 [...] (Vitamin D) fluticasone nasal (Flonase 0.05 mg/inh Duryea) levothyroxine (levothyroxine 25 mcg (0.025 mg) Tab) [...] EDT With: Penelope CASAS DO, FAAFP Where: [facility] [address] [place] [address] [place] [address]- Medications What How Much When Why Instructions New azithromycin (Zithromax 250 mg Tab) 1 Packets By Mouth As Directed Sinusitis Duration: 5 Days Refills: 1 as directed on package labeling Pickup at [facility] 1985 New fluconazole (Diflucan 150 mg Tab) 1 Tablets By Mouth Every 7 days Yeast infection Refills: 1 Pickup at [facility] 1985 Unchanged enoxaparin (Lovenox 40 mg/ 0.4 mL Injection) 40 Milligram Subcutaneous Every 24 hours Contact prescribing physician if questions or concerns Unchanged ergocalciferol (Vitamin D) 2,000 International unit By Mouth Every week Contact prescribing physician if questions or concerns Unchanged fluticasone nasal (Flonase 0.05 mg/ inh Duryea) 2 Sprays Nasal Inhalation Every day each [...] physician if questions or concerns Pharmacy Information [facility] 1985: [address] [place], [place] [id number] [phone] Allergies Milk Products (Illness) ciprofloxacin (Numbness and [...] you for choosing us for your care. [facility] Medicine Office/Clinic Noteon 26-01-3427Logmnb Medicine Office/Clinic NoteBrigham And Women'[facility]/Clinic Note Chief Complaint Sinus pressure [...] day(s), # 6 tab(s), Refills(s) 1, Pharmacy: [facility] 1985, 168, cm, 06/09/24 14:03:00 EST, Height/Length Dosing, 98.4, kg, 06/19/24 16:19:00 EST, Weight Dosing Yeast infection (B37.9: Candidiasis, unspecified) Ordered: fluconazole, 150 mg = 1 tab(s), Oral, q7day, # 4 tab(s), Refills(s) 1, Pharmacy: [facility], 168, cm, 06/09/24 14:03:00 [...] Oral, q7day, 1 refills Flonase 0.05 mg/inh Duryea, 2 spray(s), Nasal, Daily, 11 refills levothyroxine [...] Patient Refuses influe (more content not included)...NormalMercy HospitalComment on above:Result Comment: Electronically Signed By: MANDI BRYANT\.br\Date and Time Signed: 06/19/24 16:37 ESTCBC w/ Auto Diffon 06-12-2024 Basophils/100 WBC (Bld)0.3 %Normal0.0-2.0Mercy HospitalComment on above:Performed By: #### [id number] #### [facility] [address], [place] [address]Httlsmbxz/Leukocytes Auto (Bld) [Pure # fraction]0.0 E9/LNormal 0.0-0.2FAdena Regional Medical CenterComment on above:Performed By: #### [id number] #### [facility] [address], [place] [address]Ndhyntieass (Bld) [#/Vol]0.0 E9/LNormal0.0-0.5FAdena Regional Medical CenterComment on above:Performed By: #### [id number] #### [facility] [address], [place] [address]Orbgmgrtyxd/100 WBC (Bld)0.3 %Normal0.0-8.0Mercy HospitalComment on above:Performed By: #### [id number] #### [facility] [address], [place] [address]Nojjrtroyqr distribution width (RBC) [Ratio]14.0 %Normal 10.9-14.2FAdena Regional Medical CenterComment on above:Performed By: #### [id number] #### [facility] [address] [place] [address]Thvgaysiif (Bld) [Volume fraction]40.9 %Velufh18.0-46.0Mercy HospitalComment on above:Performed By: #### [id number] #### [facility] [address] [place] [address]Meyyvecktd (Bld) [Mass/Vol]13.9 g/fUGngqyt55.0-16.0Mer[facility] HospitalComment on above:Performed By: #### [id number] #### [facility] [address] [place] [address]Hwwfmqfmqmg (Bld) [#/Vol]2.8 E9/LNormal1.0-4.0Mercy HospitalComment on above:Performed By: #### [id number] #### [facility] [address] [place] [address]Xlfkfxmpvsq/100 WBC (Bld)24.6 %Okhzeh61.0-50.0Mer[facility] HospitalComment on above:Performed By: #### [id number] #### [facility] [address] [place] [address]JFC (RBC) [Entitic mass]30.7 ahYkijps68.0-34.0Mercy HospitalComment on above:Performed By: #### [id number] #### [facility] [address] [place] [address]TZRE (RBC) [Mass/Vol]33.9 g/zHYpiyhp23.4-36.0Mer[facility] HospitalComment on above:Performed By: #### [id number] #### [facility] [address] [place] [address]IPZ (RBC) [Entitic vol]90.6 mTIipikw25.0-100.0Mer[facility] HospitalComment on above:Performed By: #### [id number] #### [facility] [address] [place] [address]Lhpatqiqs (Bld) [#/Vol]0.6 E9/LNormal0.2-1.0Mercy HospitalComment on above:Performed By: #### [id number] #### [facility] [address] [place] [address]Pofvtfgvpum (Bld) [#/Vol]8.0 E9/LHigh2.0-7.5FAdena Regional Medical CenterComment on above:Performed By: #### [id number] #### [facility] [address] [place] [address]Fjudsivfcxp/100 WBC (Bld)69.6 %Nfbtwi26.0-75.0Mercy HospitalComment on above:Performed By: #### [id number] #### [facility] [address] [place] [address]Jwvtsucd792.0 E9/QOguwfj100.0-500.0[facility] Comment on above:Performed By: #### [id number] #### [facility] [address] [place] [address]Mcafxvxf mean volume (Bld) [Entitic vol]8.2 fLNormal6.4-10.8 Mer[facility] HospitalComment on above:Performed By: #### [id number] #### [facility] [address] [place] [address]EDT (Bld) [#/Vol]4.5 E12/LNormal4.3-5.9Mercy HospitalComment on above:Performed By: #### [id number] #### [facility] [address], [place] [address]ICQ corrected for nucl RBC Auto (Bld) [#/Vol]11.5 E9/LHigh 4.0-11.0Mer[facility] HospitalComment on above:Performed By: #### [id number] #### [facility] [address], [place] [address]KKXFUQWFIYWvivrzh By: SYSTEM SYSTEM on 29-49-4731Srfmjpezl/100 WBC (Bld)0.3 %Normal0.0 - 2.0 %Remisol HemeBasophils/Leukocytes Auto (Bld) [Pure # fraction]0.0 E9/LNormal0.0 - 0.2 E9/LRemisol HemeEosinophils (Bld) [#/Vol]0.0 E9/LNormal0.0 - 0.5 E9/LRemisol HemeEosinophils/100 WBC (Bld)0.3 %Normal0.0 - 8.0 %Remisol HemeErythrocyte distribution width (RBC) [Ratio]14.0 %Avredt23.9 - 14.2 %Remisol HemeHematocrit (Bld) [Volume fraction]40.9 %Pjcdug19.0 - 46.0 % Remisol HemeHemoglobin (Bld) [Mass/Vol]13.9 g/nLHcfvav87.0 - 16.0 gm/dLRemisol HemeLymphocytes (Bld) [#/Vol]2.8 E9/LNormal1.0 - 4.0 E9/LRemisol Heme Lymphocytes/100 WBC (Bld)24.6 %Qouuxi30.0 - 50.0 %Remisol HemeMCH (RBC) [Entitic mass]30.7 koNdanoa54.0 - 34.0 pgRemisol HemeMCHC (RBC) [Mass/Vol]33.9 g/dL Hessqx43.4 - 36.0 gm/dLRemisol HemeMCV (RBC) [Entitic vol]90.6 bZCviexh63.0 - 100.0 fLRemisol HemeMonocytes (Bld) [#/Vol]0.6 E9/LNormal0.2 - 1.0 E9/LRemisol HemeMonocytes/100 WBC (Bld)5.2 %Normal4.0 - 14.0 %Remisol HemeNeutrophils (Bld) [#/Vol]8.0 E9/LHigh2.0 - 7.5 E9/LRemisol HemeNeutrophils/100 WBC (Bld)69.6 % Hjhsjo56.0 - 75.0 %Remisol DqfgZastkark463.0 E9/RNaxcsl709.0 - 500.0 E9/LRemisol HemePlatelet mean volume (Bld) [Entitic vol]8.2 fLNormal6.4 - 10.8 fLRemisol HemeRBC (Bld) [#/Vol]4.5 E12/LNormal4.3 - 5.9 E12/LRemisol HemeWBC corrected for nucl RBC Auto (Bld) [#/Vol]11.5 E9/LHigh4.0 - 11.0 E9/LRemisol HemeAmbulatory Visit Summaryon 93-50-5679Rnfvrzahfw Visit SummaryAmbulatory Visit Summary SANNA RENDON :1985 Visit Date:06/09/2024 Ambulatory Visit Instructions Your Diagnosis Antiphospholipid antibody with hypercoagulable state H/O: CVA Gestational diabetes BMI 35.0-35.9,adult Morbid obesity Your Care Team Attending Physician - Penelope CASAS DO, FAAFP Primary Care Physician - Penelope CASAS DO, FAAFP This Is Your Medications List fluticasone nasal (Flonase 0.05 mg/inh Duryea) Contact prescribing physician if questions or concerns [...] EDT With: Penelope CASAS DO, FAAFP Where: [facility] [address], [facility] [place] [address]- Medications What How Much When Instructions New fluticasone nasal (Flonase 0.05 mg/ inh Duryea) 2 Sprays Nasal Inhalation Every day Refills: 11 each nostril Pickup at [facility]/pharmacy #[id number] Unchanged enoxaparin (Lovenox 40 mg/ [...] physician if questions or concerns Pharmacy Information [facility]/pharmacy #[id number]: [address] [place], [place] [id number] [phone] Allergies Milk Products (Illness) ciprofloxacin (Numbness and [...] for choosing us for your care. NormalFisher Western Maryland Hospital CenterBhCG Quanton 24-83-9665YXT.beta subunit Qn2 m[IU]/mLNormal1-3[facility] Hospital CenterComment on above:Result Comment: 'F NON < 1 - 3' ' 0.2 - 1 WEEK = 5 TO 50' ' 1 - 2 WEEKS = 50 - 500' ' 2 - 3 WEEKS = 100 - 5000' ' 3 - 4 WEEKS = 500 - 73377' ' 4 - 5 WEEKS = 1000 - 91251' ' 5 - 6 WEEKS = 65121 - 321885' ' 6 - 8 WEEKS = 86739 - 526396' ' 8 - 12 WEEKS = 91990 - 557058'Performed By: #### [id number] #### [facility] [address], [place] [address]YYBLJHKRBJjdfcyz By: SYSTEM SYSTEM on 29-40-2444PIG Qn1.97 m[IU]/LNormal0.34 - 5.60 mcIU/mLRemisol ChemFamily Medicine Office/Clinic Noteon 51-10-6363Dcfnkk Medicine Office/Clinic NoteFamily Medicine Office/Clinic Note Chief [...] from inside ear, not outside Moved from [place] Review of Systems PHQ Score Initial Depression [...] antibody with hypercoagulable state (D68.61: Antiphospholipid syndrome) [facility] Department of hematology/oncology following and treating with Lovenox, please see their consultation 05/28/2024. Treats with Lovenox 40 mg subcu every 24 hours 2. H/O: CVA (Z86.79: Personal history of other diseases of the circulatory system) Please see #1. 3. 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 Metformin XR 500 mg tabs [...] PED In 6 months [address] [place] [address]- [phone] (more content not included)...[facility] Medical CenterComment on above:Result Comment: Electronically Signed By: Penelope CASAS DO, FAAFP\.br\Date and Time Signed: 06/09/24 14:24 ESTTSHon 97-94-1119UJO Qn1.97 m[IU]/LNormal0.34-5.60Mercy HospitalComment on above:Performed By: #### [id number] #### [facility] [address] [facility] [place], [place] [address]JzVO Quanton 95-32-3104NOG.beta subunit Qn6 m[IU]/mLHigh1-3 Mercy HospitalComment on above:Result Comment: 'F NON < 1 - 3' ' 0.2 - 1 WEEK = 5 TO 50' ' 1 - 2 WEEKS = 50 - 500' ' 2 - 3 WEEKS = 100 - 5000' ' 3 - 4 WEEKS = 500 - 71173' ' 4 - 5 WEEKS = 1000 - 69923' ' 5 - 6 WEEKS = 71650 - 462930' ' 6 - 8 WEEKS = 18443 - 957281' ' 8 - 12 WEEKS = 69973 - 398960'Performed By: #### [id number] #### [facility] [address] [facility] [place], [place] [address]([place])D3 [facility] 023494-lwzqzylpnbrgzo D3 [Mass/Vol] 27.8 ng/mLLow31.0-80.0Glenbeigh HospitalComment on above:Order Comment: Specimen Type: BLOOD SPECIMENOrdering Facility: [facility] Address:[address] [place], [place] [address]Vxmahp Comment: Classification of 25 [place] Vitamin D status: Deficiency/Insufficiency: < or = 30 ng/ml. Sufficiency/Optimal Levels: 31-80 ng/mL Toxicity: > 100 ng/mL. Test performed by chemiluminescent immunoassay.Performed By: #### 1989-3 ####[facility] LABCLIA [id number] [facility]ITALK [id number] Auto Differential panel (Bld)on 99-07-3758Smsoryruh (Bld) [#/Vol]0.03 10*3/uLNormal<0.11CCleveland Clinic Foundation on above:Order Comment: Specimen Type: BLOOD SPECIMENOrdering Facility: [facility] Address:[address] [place], [place] [address]Performed By: #### 10084-5 ####[facility] LABCLIA [id number] [place], [place] [address]Vebxjczns/100 WBC (Bld)0.4 % NormalWVUMedicine Barnesville Hospital on above:Order Comment: Specimen Type: BLOOD SPECIMENOrdering Facility: [facility] Address:[address] [place], [place] [address]Performed By: #### 12297-8 ####[facility] LABCLIA [id number] [place] [address] Differential cell count method Nom (Bld)AutoNormalCSelect Medical Specialty Hospital [facility] Comment on above:Order Comment: Specimen Type: BLOOD SPECIMENOrdering Facility: [facility] Address:[address] [place] [address] Performed By: #### 46535-9 ####[facility] LABIA [id number] [place], [place] [address]Hmwoaonzzil (Bld) [#/Vol]0.08 10*3/uLNormal<0.46WV[facility] on above:Order Comment: Specimen Type: BLOOD SPECIMENOrdering Facility: [facility] Address:[address] [place], [place] [address]Performed By: #### 86205-2 ####[facility] LABCLIA [id number] [place], [place] [address]Vstxjtlrxfz/100 WBC (Bld)0.9 %NormalWVUMedicine Barnesville Hospital on above:Order Comment: Specimen Type: BLOOD SPECIMENOrdering Facility: [facility] Address:[address] [place], [place] [address]Performed By: #### 56982-1 ####[facility] LABIA [id number] [place], [place] [address]Tnfspmisnot distribution width (RBC) [Ratio]13.8 %Fjsilu95.5-15.0[facility] on above: Order Comment: Specimen Type: BLOOD SPECIMENOrdering Facility: [facility] Address:[address] [place], [place] [address]Performed By: #### 01742- 8 ####[facility] LABIA [id number] [place], [place] [address]Hmxnysvfgt (Bld) [Volume fraction]34.0 %Low36.0-46.0 [facility] on above:Order Comment: Specimen Type: BLOOD SPECIMENOrdering Facility: [facility] Address:[address] [place], [place] [address]Performed By: #### 48957-0 ####[facility] LABIA [id number] [place], [place] [address]Nrcwjajngk (Bld) [Mass/Vol]11.5 g/gMGcglcu81.5-15.5CCleveland Clinic Foundation on above: Order Comment: Specimen Type: BLOOD SPECIMENOrdering Facility: [facility] Address:[address] [place], [place] [address]Performed By: #### 86189- 8 ####[facility] LABIA [id number] [place], [place] [address]Cfuivlcy granulocytes (Bld) [#/Vol]0.03 10*3/uLNormal <0.10[facility] on above:Order Comment: Specimen Type: BLOOD SPECIMENOrdering Facility: [facility] Address:[address] [place], [place] [address]Performed By: #### 50181-0 ####[facility] LABCLIA [id number] [place], [place] [address]Nzalwwxg granulocytes/100 WBC (Bld)0.4 %NormalWVUMedicine Barnesville Hospital on above: Order Comment: Specimen Type: BLOOD SPECIMENOrdering Facility: [facility] Address:[address] [place], [place] [address]Performed By: #### 13557- 8 ####[facility] LABCLIA [id number] [place], [place] [address]Fneyyolaogk (Bld) [#/Vol]2.86 10*3/uLNormal1.00-4.00 [facility] on above:Order Comment: Specimen Type: BLOOD SPECIMENOrdering Facility: [facility] Address:[address] [place], [place] [address]Performed By: #### 45302-6 ####[facility] LABCLIA [id number] [place], [place] [address]Ybbltfantge/100 WBC (Bld)33.4 %NormalWVUMedicine Barnesville Hospital on above:Order Comment: Specimen Type: BLOOD SPECIMENOrdering Facility: [facility] Address:[address] [place], [place] [address]Performed By: #### 90859-0 ####[facility] LABCLIA [id number] [place], [place] [address]JLO (RBC) [Entitic mass]30.8 pdAublae82.0-34.0[facility] on above:Order Comment: Specimen Type: BLOOD SPECIMENOrdering Facility: [facility] Address:[address] [place], [place] [address]Performed By: #### 81475-6 ####[facility] LABCLIA [id number] [place], [place] [address]VSHS (RBC) [Mass/Vol]33.8 g/xLNuctey31.5-36.0[facility] on above: Order Comment: Specimen Type: BLOOD SPECIMENOrdering Facility: [facility] Address:[address] [place], [place] [address]Performed By: #### 54303- 8 ####[facility] LABCLIA [id number] [place], [place] [address]QLY (RBC) [Entitic vol]91.2 zNSsgquh06.0-100.0[facility] on above:Order Comment: Specimen Type: BLOOD SPECIMENOrdering Facility: [facility] Address:[address] [place], [place] [address]Performed By: #### 69787-7 ####[facility] LABIA [id number] [place], [place] [address]Ompmjbvzy (Bld) [#/Vol]0.66 10*3/uLNormal<0.87[facility] on above:Order Comment: Specimen Type: BLOOD SPECIMENOrdering Facility: [facility] Address:[address] [place], [place] [address]Performed By: #### 05450- 8 ####[facility] LABIA [id number] [place], [place] [address]Fhjbnlwgd/100 WBC (Bld)7.7 %NormalWVUMedicine Barnesville Hospital on above:Order Comment: Specimen Type: BLOOD SPECIMENOrdering Facility: [facility] Address:[address] [place], [place] [address]Performed By: #### 30476-2 ####[facility] LABIA [id number] [place], [place] [address]Yjbrkarwjrv (Bld) [#/Vol]4.90 10*3/uLNormal1.45-7.50[facility] on above:Order Comment: Specimen Type: BLOOD SPECIMENOrdering Facility: [facility] Address:[address] [place], [place] [address]Performed By: #### 97309-1 ####[facility] LABCLIA [id number] [place], [place] [address]Sledetdntji/100 WBC (Bld)57.2 %NormalWVUMedicine Barnesville Hospital on above:Order Comment: Specimen Type: BLOOD SPECIMENOrdering Facility: [facility] Address:[address] [place], [place] [address]Performed By: #### 68435-2 ####[facility] LABCLIA [id number] [place], [place] [address]Tduylvaxz RBC (Bld) [#/Vol] 10*3/uLNormal<0.01[facility] on above:Order Comment: Specimen Type: BLOOD SPECIMENOrdering Facility: [facility] Address:[address] [place], [place] [address]Performed By: #### 47261-6 ####[facility] LABCLIA [id number] [place], [place] [address]Rdzgdeazt RBC/100 WBC (Bld) [Ratio]0.0 /100 WBCNormal [facility] on above:Order Comment: Specimen Type: BLOOD SPECIMENOrdering Facility: [facility] Address:[address] [place], [place] [address]Performed By: #### [id number] ####[facility] LABCLIA [id number] [place], [place] [address]Gcwwzzrk mean volume (Bld) [Entitic vol]9.6 fLNormal9.0-12.7CCleveland Clinic Foundation on above:Order Comment: Specimen Type: BLOOD SPECIMENOrdering Facility: [facility] Address:[address] [place] [address] Performed By: #### 35286-2 ####[facility] LABCLIA [id number] [place], [place] [address]Epcayqykn (Bld) [#/Vol]345 10*3/qTClllea001-308YaocbypdlWVUMedicine Barnesville Hospital on above:Order Comment: Specimen Type: BLOOD SPECIMENOrdering Facility: [facility] Address:[address] [place], [place] [address]Performed By: #### 79292-0 ####[facility] LABIA [id number] [place], [place] [address]IYS (Bld) [#/Vol]3.73 10*6/uLLow3.90-5.20[facility] on above:Order Comment: Specimen Type: BLOOD SPECIMENOrdering Facility: [facility] Address:[address] [place], [place] [address]Performed By: #### 99057-9 ####[facility] LABIA [id number] [place], [place] [address]AGB (Bld) [#/Vol]8.56 10*3/uL Normal3.70-11.00[facility] on above:Order Comment: Specimen Type: BLOOD SPECIMENOrdering Facility: [facility] Address:[address] [place], [place] [address]Performed By: #### 20543-1 ####[facility] LABIA [id number] [place], [place] [address]QWMJJBcm 33-01-2670RLQGAKXayxk (SP) Office (HEMASA) SANNA RENDON ([id number]) 1985 F Date Time Provider Department 05/28/24 1:00 PM ABHYANKAR, KRISTOFER HEMASA During your visit today, we recorded the following information about you: Temperature Pulse Respiration Blood pressure 97.6 degrees 72/minute 16/minute 123/83 Weight Height 98.5 kg 1.677 m Kristofer Calix MD 05/29/2024 9:13 AM Signed NAME: Sanna Rendon CLINIC NO.: [id number] DATE OF SERVICE: May 28, 2024 (Levon) [...] later in 2018. These were found in [place], [place]. I don't have access to these [...] a target-like rash shortly before presenting to [facility] in 2016 with headaches and was diagnosed [...] soon. When she had a stroke in [place], she had symptoms up to a month [...] having trouble losing weight. (more content not included)...NormalGlenbeigh HospitalCNPNon 05-28-2024 CNPNTelephone (NCCAP) SANNA RENDON ([id number]) 1985 F Date Time Provider Department 05/28/24 [...] 05/28/2024 Encounter Status:Closed by TAYLOR ESCUDERO on 05/28/24NormalClevelAnson Community HospitalComprehensive metabolic 2000 panelon 89-89-1271Trgyaqc [Mass/Vol]4.4 g/dLNormal3.9-4.9ClevelAnson Community HospitalComment on above:Order Comment: Specimen Type: BLOOD SPECIMENOrdering Facility: [facility] Address:[address] [place] [address] [place] [id number] By: #### 72692-6 ####[facility] LABCLIA [id number] [place] [address]SYV [Catalytic activity/Vol]59 U/WUxfdoo96-186OfyxjtbyoWVUMedicine Barnesville Hospital on above:Order Comment: Specimen Type: BLOOD SPECIMENOrdering Facility: [facility] Address:[address] [place], [place] [address]Performed By: #### 88457-0 ####[facility] LABCLIA [id number] [place], [place] [address]ZUK [Catalytic activity/Vol]12 U/LNormal7-38[facility] on above:Order Comment: Specimen Type: BLOOD SPECIMENOrdering Facility: [facility] Address:[address] [place], [place] [address]Performed By: #### 70420- 8 ####[facility] LABCLIA [id number] [place] DUMONTPHOENIX [facility]TE[place], [place] [address]Jnkxs gap [Moles/Vol]10 mmol/LNormal8-15[facility] on above:Order Comment: Specimen Type: BLOOD SPECIMENOrdering Facility: [facility] Address:[address] [place], [place] [address]Performed By: #### 88591-7 ####[facility] LABCLIA [id number] [place], [place] [address]GET [Catalytic activity/Vol]11 U/YRdf86-73XxgvlzfznWVUMedicine Barnesville Hospital on above:Order Comment: Specimen Type: BLOOD SPECIMENOrdering Facility: [facility] Address:[address] [place], [place] [address]Performed By: #### 71385-6 ####[facility] LABCLIA [id number] [place] [address] Bilirubin [Mass/Vol]0.2 mg/dLNormal0.2-1.3CCleveland Clinic Foundation on above:Order Comment: Specimen Type: BLOOD SPECIMENOrdering Facility: [facility] Address:[address] [place], [place] [address]Performed By: #### 38747-0 ####[facility] LABCLIA [id number] [place], [place] [address]Aksnwyu [Mass/Vol]9.7 mg/dLNormal8.5-10.2CCleveland Clinic Foundation on above:Order Comment: Specimen Type: BLOOD SPECIMENOrdering Facility: [facility] Address:[address] [place], [place] [address]Performed By: #### 95363-1 ####[facility] LABCLIA [id number] [place], [place] [address]Olxarmxj [Moles/Vol]99 mmol/TFcjjss00-349FlbtniaejWVUMedicine Barnesville Hospital on above:Order Comment: Specimen Type: BLOOD SPECIMENOrdering Facility: [facility] Address:[address] [place], [place] [address]Performed By: #### 81311- 8 ####[facility] LABCLIA [id number] [place], [place] [address]RR2 [Moles/Vol]25 mmol/RDdwlrm67-01SjwbefovaWVUMedicine Barnesville Hospital on above:Order Comment: Specimen Type: BLOOD SPECIMENOrdering Facility: [facility] Address:[address] [place], [place] [address]Performed By: #### 86617-8 ####[facility] LABCLIA [id number] [place], [place] [address]Byxtlbfhfq [Mass/Vol]0.71 mg/dL Normal0.58-0.96[facility] on above:Order Comment: Specimen Type: BLOOD SPECIMENOrdering Facility: [facility] Address:[address] [place], [place] [address]Performed By: #### 40721-0 ####[facility] LABCLIA [id number] [place], [place] [address]Kvfzeuubaf and Glomerular filtration rate.predicted panel (S/P/Bld)112 mL/min/1.73m???Normal>=60[facility] on above:Order Comment: Specimen Type: BLOOD SPECIMENOrdering Facility: [facility] Address:[address] [place] [address]Epcqnd Comment: Estimated Glomerular Filtration Rate (eGFR) is [...] not accurately reflect actual GFR.Performed By: #### 66291-5 ####[facility] LABCLIA [id number] [place], [place] [address]Lodznfu [Mass/Vol]79 mg/bADirxwb40-65KgffocixmWVUMedicine Barnesville Hospital on above:Order Comment: Specimen Type: BLOOD SPECIMENOrdering Facility: [facility] Address:[address] [place] [address]Rcknxt Comment: The [place] Diabetes Association (ADA) provides guidance for cutoff [...] Standards of Medical Care in Diabetes 2016, [place] Diabetes Association. Diabetes Care. 2016.39(Suppl 1).Performed By: #### 27462-8 ####[facility] LABCLIA [id number] [place], [place] [address]Hmykhpesn [Moles/Vol]4.0 mmol/LNormal3.7-5.1CCleveland Clinic Foundation on above:Order Comment: Specimen Type: BLOOD SPECIMENOrdering Facility: [facility] Address:[address] [place], [place] [address]Performed By: #### 81319-7 ####[facility] LABCLIA [id number] [place], [place] [address]Nakvcuh [Mass/Vol]7.1 g/dLNormal6.3-8.0[facility] on above:Order Comment: Specimen Type: BLOOD SPECIMENOrdering Facility: [facility] Address:[address] [place], [place] [address]Performed By: #### 10620- 8 ####[facility] LABCLIA [id number] [place], [place] [address]Eawvbh [Moles/Vol]134 mmol/QZhe892-637UoskqemrxWVUMedicine Barnesville Hospital on above:Order Comment: Specimen Type: BLOOD SPECIMENOrdering Facility: [facility] Address:[address] [place], [place] [address]Performed By: #### 95774-7 ####[facility] LABCLIA [id number] [place], [place] [address]Muwe nitrogen [Mass/Vol]8 mg/dL Normal7-21[facility] on above:Order Comment: Specimen Type: BLOOD SPECIMENOrdering Facility: [facility] Address:[address] [place], [place] [address]Performed By: #### 53374-0 ####[facility] LABCLIA [id number] [place] [address] Ferritin SerPl-mCncon 33-91-7590Yfwetwkb [Mass/Vol]73.8 ng/gPPzvkqn01.7-205.1 [facility] on above:Order Comment: Specimen Type: BLOOD SPECIMENOrdering Facility: [facility] Address:[address] [place], [place] [address]Performed By: #### 11199-7, 2276-4, 3016-3 ####[facility] LABCLIA [id number] [place] [address] [place] AMERICAFolate SerPl-mCncon 16-30-3286Dddujx [Mass/Vol] ng/mLNormal>4.7CCleveland Clinic Foundation on above:Order Comment: Specimen Type: BLOOD SPECIMENOrdering Facility: [facility] Address:[address] [place], [place] [address]Result Comment: A result of > 20 ng/mL is not necessarily indicative of a pathologic or treatable condition: it reflects a limitation of the test methodology. Assay reference range: 4.8 to 24.2 ng/mL. Suitable for detection of folate deficiency. Reference: Folate III (Folate III) [package insert V 1.0 Mosotho]. [facility], [place], [place]: February 2015.Performed By: #### 2132-9, 2284-8 ####[facility] LABCLIA [id number] [place] [address] [place] AMERICAIron and Iron binding capacity panelon 05-28-2024 Iron [Mass/Vol]68 ug/hOMnjluq43-196GmebmljohWVUMedicine Barnesville Hospital on above: Order Comment: Specimen Type: BLOOD SPECIMENOrdering Facility: [facility] Address:[address] [place], [place] [address]Performed By: #### 41668- 8, 2276-4, 3016-3 ####[facility] LABCLIA [id number] [place] [address] [place] AMERICAIron binding capacity [Mass/Vol]367 ug/zTYahxze565-975CwuwdcurnWVUMedicine Barnesville Hospital on above: Order Comment: Specimen Type: BLOOD SPECIMENOrdering Facility: [facility] Address:[address] [place], [place] [address]Performed By: #### 85083- 8, 6-4, 3016-3 ####[facility] LABCLIA [id number] [place] [address] [place] AMERICAIron/TIBC [Molar ratio]18.5 %Geyfnn67.0-57.0[facility] on above:Order Comment: Specimen Type: BLOOD SPECIMENOrdering Facility: [facility] Address:[address] [place], [place] [address]Performed By: #### 03929- 8, 6-4, 3016-3 ####[facility] LABCLIA [id number] [place] [address] [place] OF [facility] CENTERTS SerPl-aCncon 63-39-4976KOE Qn2.940 m[IU]/LNormal0.270-4.200[facility] on above:Order Comment: Specimen Type: BLOOD SPECIMENOrdering Facility: [facility] Address:[address] [place], [place] [address]Result Comment: If the patient is , TSH reference range varies by gestational period: First Trimester (weeks 9-12): 0.180-2.990 mIU/L Second Trimester: 0.110-3.980 mIU/L Third Trimester: 0.480-4.710 mIU/L Danny Varela et al. A Practical Approach for the Verifications and Determination of Site- and Trimester-Specific Reference Intervals for Thyroid Function tests in . Thyroid, 2019:29:3:412-420.Saeed E, et al. 2017 Guidelines of the [place] Thyroid Association for the Diagnosis and Management of Thyroid Disease during and the . Thyroid, 2017:27:3:315-389. Performed By: #### 27037-7, 4, 3015-3 ####[facility] LABCLIA [id number] [place] [address] ELECTRA STATES OF [facility] CENTERVit B12 SerPl-mCncon 62-02-9355Usvfrhhjk (Vitamin B12) [Mass/Vol]487 pg/hWXnprji070-1873FstqqinvjCleveland Clinic Foundation on above:Order Comment: Specimen Type: BLOOD SPECIMENOrdering Facility: [facility] Address:[address] [place], [place] [address]Performed By: #### 2132-9, 2284-8 ####[facility] LABCLIA [id number] [facility] [id number] [place] [address] [place] OF [facility] CENTERBhCG Quanton 71-23-1941WAZ.beta subunit Qn101 m[IU]/mLHigh1-3[facility] Maryland Hospital CenterComment on above:Result Comment: 'F NON < 1 - 3' ' 0.2 - 1 WEEK = 5 TO 50' ' 1 - 2 WEEKS = 50 - 500' ' 2 - 3 WEEKS = 100 - 5000' ' 3 - 4 WEEKS = 500 - 39436' ' 4 - 5 WEEKS = 1000 - 92864' ' 5 - 6 WEEKS = 64217 - 204996' ' 6 - 8 WEEKS = 36034 - 950283' ' 8 - 12 WEEKS = 60473 - 909829'Performed By: #### [id number] #### [facility] [address], [place] [address]KMBPTA V LEIDEN MUTATIONon 17-06-0903UBD FACTOR V LEIDEN MUTATIONComment.[facility] HealthcareComment on above:Result: c.1601G>A (p.Itr492Npc) - Not Detected This result is not associated with an increased risk for venous thromboembolism. See Additional Clinical Information and Comments. Additional Clinical Information: Venous thromboembolism is a multifactorial disease influenced by genetic, environmental, and circumstantial risk factors. The c.1601G>A (p. Vzu058Xdn) variant in the F5 gene, commonly referred [...] c.*97G>A variant and Factor V Leiden (PMID: 96467363). Additional risk factors include but are not [...] health care providers to discuss results at 3-152-566-YKVY (4862). Test Details: Variant Analyzed: c.1601G>A (p. Ebh729Vdh), referred to as Factor V Leiden Methods/Limitations: [...] developed and its performance characteristics determined by [employer]. It has not been cleared or approved by the Food and Drug Administration. References: Jomar Tian, Loren BLANDON, Thiago R, Solo WW, Jose JH; ACMG Professional Practice and Guidelines Committee. Addendum: [employer] [employer] consensus statement on factor V Leiden mutation testing. Nisha Med. 2020Jul 02. doi: 10.1038/e51241-067-52180-h. PMID: 89157071. Naina POWERS. Factor V Leiden Thrombophilia. 1998September 10 (Updated 2017May 03). In: Emeterio MP, Radha HH, Clayton RA, et al., editors. Cassie(R) (Internet). [place] ([place]): [facility], [place]; 3977-8212. Available from: https://www.ncbi.nlm.nih.gov/books/ISE9387/ Hudson Tian, Loren BLANDON, Trent X, Margarito B, Jo-Ann EB, Lena P, Rhiannon CS; ACMG Laboratory On Site Coordinator Committee. Venous thromboembolism laboratory testing (factor V Leiden and factor II c.*97G>A), 2018 update: a technical standard of the [place] College of [employer]etics and Genomics (ACMG). Nisha Med. 2018 Mar;20(12):6581-1112. doi: 10.1038/o59420-093-7264-v. Epub 2017Feb 01. PMID: 94758884. [facility] REVIEWED BYComment.NOMS HealthcareComment on above:Technical Component performed at [facility] Professional Component performed by: [employer] [facility] SuburbanFriendFeed Rosa Isela Lee, Ph.D., [facility] Director, Molecular Genetics [address] [facility] Performed at: - [facility] [address] [facility], [place], [place] [address] Curriculum Supervisor: Kolton Storm [facility], Phone: [phone] [facility] 11-41-0108VINUJeviqqxxf (HEMASA) SANNA RENDON ([id number]) 1985 F Date Time Provider Department 05/14/24 [...] for deficiency. 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 request any additional testing, we [...] Date Reviewed: 04/28/2024 Reviewed by: Katherine Negrete APRN.TANK TESTER - Fully Assessed Reason for Visit: Patient [...] 08/01/2022 Encounter Status:Closed by RACHAEL JOHNSON on 05/14/24[facility] MISCELLANEOUS TESTon 68-29-3473PCSGUZESXGFYN TESTCOMMENT.NOMS HealthcareComment on above:Test Ordered: [id number] , ID Ab Cytomegalovirus (CMV) Ab, IgG [...] 0.9 - 1.1 Positive >1.1 Performed at: [address] [id number] Curriculum Supervisor: Dusty Miles PhD, Phone: [phone] Performed at: [address] [id number] Curriculum Supervisor: China Ching MD, Phone: [phone] , Infectious Disease Antibody Profile CLINISYNCNOMS HealthcareNo Panel Informationon 96-26-4254ODKCEYCPHYWJM HealthcarePROTEIN C-FUNCTIONALon 21-53-9521DJSARNI C-BOTBASAHJB377 %73 - 180 % NOMS HealthcareComment on above:Performed at: [address] [id number] Curriculum Supervisor: China Ching MD, Phone: [phone] PROTEIN S-ANTIGENon 36-28-1752TCQPDAY S, FZSW277 %61 - 136 %[facility] PROTEIN S, TOTAL96 %60 - 150 %NOMS HealthcareComment on above:This test was developed and its performance characteristics determined by [facility]. It has not been cleared or approved by the Food and Drug Administration. [facility] ANTITHROMBIN ACTIVITYon 59-34-0618Arhudfgyovogrz and review of laboratory resultsAbnormalSt. Luke's Hospital ANTITHROMBIN RZVBEDHO999 %Rxbwpwgp85 - 135 % NOMS HealthcareComment on above:An elevated antithrombin activity is of no known clinical significance. Direct Xa inhibitor anticoagulants such as rivaroxaban, apixaban and edoxaban will lead to spuriously elevated antithrombin activity levels possibly masking a deficiency. Performed at: [address] [id number] Curriculum Supervisor: China Ching MD, Phone: [phone] ALL IMMUNOGLOBULIN Koffi 88-69-7006ULL IMMUNOGLOBULIN G, QN913 mg/dL586 - 1602 mg/dLNOWA HealthcareComment on above:Performed at: [address] [id number] Curriculum Supervisor: Dusty Miles PhD, Phone: [phone] ALL IMMUNOGLOBULIN Mon 89-68-5348VBI IMMUNOGLOBULIN M, Q177 mg/dL26 - 217 mg/dL NOM HealthcareComment on above:Performed at: [address] [id number] Curriculum Supervisor: Dusty Miles PhD, Phone: [phone] METRO HOMOCYSTEINEon 63-26-5053XTCJRZAW(E)INE5.8 umol/L0.0 - 14.5 umol/LNOMS HealthcareNo Panel Informationon 54-60-7845BBXHLTDGMWPFB HealthcareALL CBC WITH AUTO DIFFon 89-60-6564NMNHIQNJE ABSOLUTE DJNQ5FOCV HealthcareBasophils/100 WBC (Bld)0.2 %0.2 - 2.0 %NOMS HealthcareEosinophils/100 WBC (Bld)0.7 %Low0.9 - 7.0 % NOMS HealthcareErythrocyte distribution width (RBC) [Ratio]13 %11.0 - 15.0 %NOMS HealthcareHematocrit (Bld) [Volume fraction]35.6 %Low36.0 - 48.0 %[facility] Psychiatric HospitalHemoglobin (Bld) [Mass/Vol]12.3 g/dL12.0 - 16.0 g/dLHawthorn Children's Psychiatric Hospital IMMATURE GRANULOCYTES ABS AUTO0.04HighNOMissouri Southern HealthcareImmature granulocytes/100 WBC (Bld)0.4 %0.0 - 0.5 %[facility]iatric HospitalInterpretation and review of laboratory resultsAbnormalNOWA HealthcareLYMPHOCYTES ABSOLUTE AUTO2.5NOMS [facility] Lymphocytes/100 WBC (Bld)26.1 %20.5 - 60.0 %[facility] CenterH (RBC) [Entitic mass]31 pg26.7 - 34.0 pgNOSaint Mary's Hospital of Blue SpringsHC (RBC) [Mass/Vol]34.6 g/dL29.9 - 35.2 g/dLHawthorn Children's Psychiatric HospitalMCV (RBC) [Entitic vol]89.7 fL81.0 - 99.0 fLHawthorn Children's Psychiatric Hospital MONOCYTES ABSOLUTE AUTO0.6NOMS HealthcareMonocytes/100 WBC (Bld)6 %1.7 - 12.0 % [facility] Psychiatric HospitalNEUTROPHILS ABSOLUTE AUTO6.3NOMS HealthcareNeutrophils/100 WBC (Bld)66.6 %43.0 - 75.0 %[facility] Psychiatric HospitalPlatelet mean volume (Bld) [Entitic vol] 9.9 fL9.5 - 13.5 fLNOMS [facility] HospitalTBH EO #0.1NOMS [facility] HospitalTB OUL602UVUA [facility] HospitalTB RBC3.97LowNOMS [facility] Municipal HospitalTB WBC9.4NOMS [facility] HospitalCLINISYNCNColumbia Regional HospitalCC APTTon 16-29-7424qNVR Coag (Bld) [Time]28.5 Phelps HealthLon 05-10-2024L Specimen: [id number] Received: 05/12/24-120 Status: BALDOMERO Andrade Num: [id number] Spec Type: Surgical Subm Dr: Wilton Herrmann Tissues: A Placenta - Other than 3rd Trimester (14 WK PLACENTA) Procedures: HE/3, Gross/Micro L4 Age/ Patient Sex Location Account Attending Physician Sanna Rendon 38/F LABELL [id number] Wilton Herrmann SPEC NUM: [id number] RECD: 05/12/24-1209 STATUS: BALDOMERO ANDRADE NUM: [id number] AMARILYS: 05/10/24- SUBM DR: Wilton Herrmann ENTERED: 05/12/24-[address] [facility] [address]: Yao Pickett SPEC TYPE: Surgical DEPT: [facility] ENTERED BY: [id number] RECV BY: [id number] ORDERED: HE/3, Gross/Micro L4 ORDERED: HE/3, Gross/Micro [...] [id number] Received: 05/12/24 Status: BALDOMERO Andrade Num: [id number] Spec Type: Surgical Subm Dr: Wilton Herrmann Tissues: A Placenta - Other than 3rd Trimester (14 WK PLACENTA) Procedures: DEION/Ramone, Gross/Micro L4 Patient: Lizandro,Katie [id number] (Continued) Specimen: [id number] Received: 05/12/24 (Continued) Gross Description (Continued) Signed (signature on file) Vivi Hill MD 05/13/24 1605 Specimen: [id number] Received: 05/12/24 Status: JUSTINEBrittany Andrade Num: [id number] Spec Type: Surgical Subm Dr: Wilton Herrmann Tissues: A Placenta - Other than 3rd Trimester (14 WK PLACENTA) Procedures: /3, Gross/Micro L4 Patient: Sanna Rendon [id number] (Continued) Specimen: [id number] Received: 05/12/24 (Continued) Gross [...] and uniform. Cassettes: A1 Rolled membrane A2-A3 [employer] sections of placenta (3, ss, BS25-17 A) JosselynG . CPT Codes 02107 Specimen: [id number] Received: 05/12/24 Status: BALDOMERO Andrade Num: [id number] Spec Type: Surgical Subm Dr: Wilton Herrmann Tissues: A Placenta - Other than 3rd Trimester (14 WK PLACENTA) Procedures: DEION/Ramone, Gross/Micro L4 Patient: LizandroSanna [id number] (Continued) Signed (signature on file) Vivi Hill MD 05/13/[address] [place] [address] Physician GroupMHPT FIBRINOGENon 05-10-2024 UJECIFDYIB252 mg/dL200 - 400 mg/dLNOMissouri Southern HealthcareNo Panel Informationon 59-17-3034KXABGAOWWMKCO HealthcareSRMCOH PROTHROMBIN TIME INR W/O COUMon 72-37-1714TO Coag (PPP) [Time]10.3 sNKindred Hospital INR0.97[facility] Comment on above:DESIRED INR: 2.0-3.0 CONDITIONS NOT LISTED BELOW 2.5-3.5 FOR PROSTHETIC HEART VALVE REPLACEMENT 2.5-3.5 RECURRENT THROMBOSIS US PELVISon 45-63-9188[place]xc[place] [address] Ultrasound Report Signed Patient: SANNA RENDON MR#: [id number] : 1985 Acct:[id number] Age/Sex: 38 / F ADM Date: Loc: [facility] 258-[address]: Wilton Herrmann D.O. Ordering Physician: Wilton Herrmann D.O. Date of Service: 05/10/24 Procedure(s): US pelvis Accession Number(s): [id number] cc: Wilton Herrmann D.O.; PENELOPE CASAS [place] [phone] Patient Name: SANNA RENDON MRN: [id number] date: 1985 Sex: F Assigned Patient Location: [facility] Current Patient Location: [facility] Accession/Order Number: [id number] Exam Date: 05/10/2024 14:36 Report Date: 05/10/2024 [...] M.D. Signed By: 05/10/241603 DD/ 01 TD/TT: Client Support Analyst:ELVERadiology, Radiologist, - 05/10/2024 [place] [address] Ultrasound Report Signed Patient: SANNA RENDON MR#: [id number] : 1985 Acct:[id number] Age/Sex: 38 / F ADM Date: Loc: [facility] 258-[address]: Wilton Herrmann D.O. Ordering Physician: Wilton Herrmann D.O. Date of Service: 05/10/24 Procedure(s): US pelvis Accession Number(s): [id number] cc: Wilton Herrmann D.O.; PENELOPE CASAS [place] [address] Patient Name: SANNA RENDON MRN: [id number] date: 1985 Sex: F Assigned Patient Location: [facility] Current Patient Location: [facility] Accession/Order Number: [id number] Exam Date: 05/10/2024 14:36 Report Date: 05/10/2024 [...] M.D. Signed By: 05/10/241603 DD/ 01 TD/TT: Client Support Analyst: SHILOH HealthcareRadiology Study observation (narrative)SHILOH HealthcareUS PELVIS Ordered By: Radiologist Radiology on [id number] Work Phone: [place] for pregnancyon [phone] [phone] Ultrasound Report Signed Patient: SANNA RENDON MR#: [id number] : 1985 Acct:[id number] Age/Sex: 38 / F ADM Date: Loc: [facility] 258-[address]: Wilton Herrmann D.O. Ordering Physician: Wilton Herrmann D.O. Date of Service: 05/10/24 Procedure(s): US OB limited Accession Number(s): [id number] cc: Wilton Herrmann D.O.; PENELOPE CASAS [address] [address] Patient Name: SANNA RENDON MRN: [id number] date: 1985 Sex: F Assigned Patient Location: [facility] Current Patient Location: [place] Accession/Order Number: [id number] Exam Date: 05/10/2024 08:30 Report Date: 05/10/2024 [...] M.D. Signed By: 05/10/24928 DD/ 5 TD/TT: Client Support Analyst:ELVERadiologPacheco morales, - 05/10/2024 [place] [address] Ultrasound Report Signed Patient: SANNA RENDON MR#: [id number] : 1985 Acct:[id number] Age/Sex: 38 / F ADM Date: Loc: [facility] 258-[address]: Wilton Herrmann D.O. Ordering Physician: Wilton Herrmann D.O. Date of Service: 05/10/24 Procedure(s): US OB limited Accession Number(s): [id number] cc: Wilton Herrmann D.O.; PENELOPE CASAS [place] [address] Patient Name: SANNA RENDON MRN: [facility]:[id number] date: 1985 Sex: F Assigned Patient Location: [facility] Current Patient Location: US Accession/Order Number: [id number] Exam Date: 05/10/2024 08:30 Report Date: 05/10/2024 [...] M.D. Signed By: 05/10/24928 DD/ 5 TD/TT: Client Support Analyst: SHILOH HealthcareRadiology Study observation (narrative)NOMS HealthcareUS for pregnancyOrdered By: Radiologist Radiology on 73-33-4909WK[facility] Healthcare Work Phone: us OB TRANSVAGINALon 35-37-9400XP OB TRANSVAGINALTITLE OF EXAM: OB Ultrasound: REASON [...] period was 01/29/2024.Urinalysis macro (dipstick) panel (U)on 78-22-7648Ysrfnlsjw, UANegativeNegative - 4(70) +++ mg/dLNOWA Healthcare Blood, UANegativeNegative - 50 Max/mcLNOWA HealthcareClarity, UAClearNOWA HealthcareColor, UAYellowNOWA HealthcareGlucose, UANegativeNegative - 2000(110) ++++ mg/dLNOWA HealthcareInterpretation and review of laboratory resultsNormal NOMS HealthcareKetones, UANegativeNegative - 160(16) ++++ mg/dLNOWA Healthcare Leukocytes, UANegativeNegative - 500+++ John/mcLNOWA HealthcareNitrite, UA NegativeNegative - PositiveNOMS HealthcarepH, UA65 - 9NOMS HealthcareProtein, UA NegativeNegative - 2000(20) ++++ mg/dLNOWA HealthcareSpec Grav, UA1.011 - 1.03 NOMS HealthcareUrobilinogen, UA0.20.2 - 12 mg/dLNOMS HealthcareNOMS Healthcare BOX TESTon 97-32-0563JLU TEST SENT OUTYNOMS UxixddfzbdPAT5RRFMAEVVF Healthcare DWM88706/13/23NOMS HealthcareUNITY BOX CLINISYNCNOWA HealthcareTBH DRUG SCREEN RAPID (URINE)on 71-48-7495CVPEWKVJJDW SCREEN URINENegativeNEGATIVENOMS HealthcareBARBITURATES SCREEN URINENegative NEGATIVENOMS HealthcareBENZODIAZEPINES [...] TRICYCLIC ANTIDEPRESSANT URINENegativeNEGATIVENOMS HealthcareCLINISYNCNOMS HealthcareUS OB TRANSVAGINALon 68-13-3324[place] [address] Ultrasound Report Signed Patient: Sanna Rendon MR#: [id number] : 1985 Acct:[id number] Age/Sex: 38 / F ADM Date: 04/04/24 Loc: [facility] Attending Dr: Wilton Herrmann D.O. Ordering Physician: Wilton Herrmann D.O. Date of Service: 04/04/24 Procedure(s): US OB transvaginal Accession Number(s): [id number] cc: Wilton Herrmann D.O.; PENELOPE CASAS [place] [id number] Patient Name: SANNA RENDON MRN: [id number] date: 1985 Sex: F Assigned Patient Location: [facility] Current Patient Location: Accession/Order Number: [id number] Exam Date: 04/04/2024 09:43 Report Date: 04/05/2024 [...] Signed By: 04/05/24 0442 DD/ 0439 TD/TT: Client Support Analyst:TBHRadiology, Radiologist, MD - 04/05/2024 [place] [address] Ultrasound Report Signed Patient: Sanna Rendon MR#: [id number] : 1985 Acct:[id number] Age/Sex: 38 / F ADM Date: 04/04/24 Loc: [facility] Attending Dr: Wilton Herrmann D.O. Ordering Physician: Wilton Herrmann D.O. Date of Service: 04/04/24 Procedure(s): US OB transvaginal Accession Number(s): [id number] cc: Wilton Herrmann D.O.; PENELOPE CASAS [place] [id number] Patient Name: SANNA RENDON MRN: [id number] date: 1985 Sex: F Assigned Patient Location: [facility] Current Patient Location: Accession/Order Number: [id number] Exam Date: 04/04/2024 09:43 Report Date: 04/05/2024 [...] Humera Kim M.D. Signed By: 04/05/242 DD/ 8 TD/TT: Client Support Analyst: SHILOH HealthcareRadiology Study observation (narrative)[facility] HospitalUS OB TRANSVAGINALOrdered By: Radiologist Radiology on 47-65-3948BQLQ [employer] Work Phone: HCG ( test) Ql (U)on 58-12-4373Joheztayjzaubg and review of laboratory resultsAbnormalNOMS HealthcarePreg Test, UrPositive NegativeNOMissouri Southern HealthcareNOWA HealthcareUrinalysis macro (dipstick) panel (U)on 23-93-4024Ozxwkitde, UANegativeNegative - 4(70) +++ mg/dLNOMS HealthcareBlood, UANegativeNegative - 50 Max/mcLNOMS HealthcareClarity, UAClearNOMS Healthcare Color, UAYellowNOMS HealthcareGlucose, UANegativeNegative - 2000(110) ++++ mg/dL NOMS HealthcareInterpretation and review of laboratory resultsNormalNOWA HealthcareKetones, UANegativeNegative - 160(16) ++++ mg/dLNOMS Healthcare Leukocytes, UANegativeNegative - 500+++ John/mcLNOMS HealthcareNitrite, UA NegativeNegative - PositiveNOMS HealthcarepH, UA5.55 - 9NOMS HealthcareProtein, UANegativeNegative - 2000(20) ++++ mg/dLNOMS HealthcareSpec Grav, UA1.021 - 1.03 NOMS HealthcareUrobilinogen, UA1.00.2 - 12 mg/dLNOMS HealthcareNOMS HealthcareC Urineon 84-15-1346Xlhjnnki identified Cx Nom (U)Microbiology PROCEDURE: Urine Culture [R1] SOURCE: U CleanCatch BODY SITE: COLLECTED DATE/TIME: 03/01/2024 10:30 EDT RECEIVED DATE/TIME: 03/01/2024 13:48 EDT START DATE/TIME: 03/01/2024 13:48 EDT FREE TEXT SOURCE: Wilton HERRMANN DO, DO, Corey R FINAL REPORTS Final Report [] Verified Date/Time: 03/03/2024 08:52 EST 2,000 cfu/ml Mixed skin contaminants Performing Locations R1: This test was performed at: [facility], [address] [place] [address], [facility] , , YxursxSqziigOhioHealth Southeastern Medical CenterComment on above:Performed By: #### [id number] #### [facility] [address] [place] [address]UxVO Quanton 22-21-9129OAT.beta subunit Qn747 m[IU]/mLHigh1-3 Mercy HospitalComment on above:Result Comment: 'F NON < 1 - 3' ' 0.2 - 1 WEEK = 5 TO 50' ' 1 - 2 WEEKS = 50 - 500' ' 2 - 3 WEEKS = 100 - 5000' ' 3 - 4 WEEKS = 500 - 11250' ' 4 - 5 WEEKS = 1000 - 76338' ' 5 - 6 WEEKS = 22284 - 478024' ' 6 - 8 WEEKS = 88873 - 994521' ' 8 - 12 WEEKS = 97166 - 083094'Performed By: #### [id number] #### [facility] [address], [place] [address]HDMBSSTYLAnhznea By: SYSTEM SYSTEM on 73-12-0739OPT.beta subunit Qn747 m[IU]/mLHigh1 - 3 mIU/mLRemisol ChemComment on above:Result Comment: 'F NON < 1 - 3' ' 0.2 - 1 WEEK = 5 TO 50' ' 1 - 2 WEEKS = 50 - 500' ' 2 - 3 WEEKS = 100 - 5000' ' 3 - 4 WEEKS = 500 - 58927' ' 4 - 5 WEEKS = 1000 - 13330' ' 5 - 6 WEEKS = 18799 - 255397' ' 6 - 8 WEEKS = 39399 - 007782' ' 8 - 12 WEEKS = 86569 - 880507'BhCG Quanton 72-58-4528WIE.beta subunit Qn268 m[IU]/mLHigh1-3FAdena Regional Medical CenterComment on above:Result Comment: 'F NON < 1 - 3' ' 0.2 - 1 WEEK = 5 TO 50' ' 1 - 2 WEEKS = 50 - 500' ' 2 - 3 WEEKS = 100 - 5000' ' 3 - 4 WEEKS = 500 - 38507' ' 4 - 5 WEEKS = 1000 - 15920' ' 5 - 6 WEEKS = 95352 - 171527' ' 6 - 8 WEEKS = 87825 - 431736' ' 8 - 12 WEEKS = 79994 - 435366'Performed By: #### [id number] #### [facility] [address], [place] [address]XsLX Quanton 16-68-0734LRF.beta subunit Qn123 m[IU]/mLHigh1-3 [facility] HospitalComment on above:Result Comment: 'F NON < 1 - 3' ' 0.2 - 1 WEEK = 5 TO 50' ' 1 - 2 WEEKS = 50 - 500' ' 2 - 3 WEEKS = 100 - 5000' ' 3 - 4 WEEKS = 500 - 06011' ' 4 - 5 WEEKS = 1000 - 04726' ' 5 - 6 WEEKS = 05574 - 767996' ' 6 - 8 WEEKS = 30524 - 452289' ' 8 - 12 WEEKS = 57417 - 172640'Performed By: #### [id number] #### [facility] [address], [place] [address]JGZOCQBGVQvvjyfu By: SYSTEM SYSTEM on 22-14-3209QHA.beta subunit Qn123 m[IU]/mLHigh1 - 3 mIU/mLRemisol ChemComment on above:Result Comment: 'F NON < 1 - 3' ' 0.2 - 1 WEEK = 5 TO 50' ' 1 - 2 WEEKS = 50 - 500' ' 2 - 3 WEEKS = 100 - 5000' ' 3 - 4 WEEKS = 500 - 96581' ' 4 - 5 WEEKS = 1000 - 60885' ' 5 - 6 WEEKS = 76942 - 067729' ' 6 - 8 WEEKS = 48522 - 682729' ' 8 - 12 WEEKS = 92167 - 095606'PmtR7lvp 24-49-6480HgS8k (Bld) [Mass fraction]6.0 %High<=5.9Mercy HospitalComment on above:Performed By: #### [id number] #### [facility] [address], [place] [address]ZJE Screen 4th Generation wRfxon 75-90-8382LNX 1+2 Ab+HIV1 p24 Ag IA QlNon-ReactiveInvalid Interpretation CodeNon ReactiveMercy HospitalComment on above:Result Comment: HIV-1/HIV-2 antibodies and HIV-1 p24 antigen were NOT detected. There is no laboratory evidence of HIV infection. HIV Negative Performed at: [facility] [address] [place], [place] [id number] PhD Jd MontanoPerformed By: #### [id number] #### [facility] [address], [place] [address]WyKI Quanton 15-29-5068DGF.beta subunit Qn52 m[IU]/mLHigh1-3 [facility] HospitalComment on above:Result Comment: 'F NON < 1 - 3' ' 0.2 - 1 WEEK = 5 TO 50' ' 1 - 2 WEEKS = 50 - 500' ' 2 - 3 WEEKS = 100 - 5000' ' 3 - 4 WEEKS = 500 - 34326' ' 4 - 5 WEEKS = 1000 - 39839' ' 5 - 6 WEEKS = 22965 - 034704' ' 6 - 8 WEEKS = 38701 - 976599' ' 8 - 12 WEEKS = 07011 - 001080'Performed By: #### [id number] #### [facility] [address] [place], [place] [address]EWDSVDYOQQaulrvn By: SYSTEM SYSTEM on 76-08-3447Iqewruaoeud [Mass/Vol]225 mg/tGBtyt542 - 200 mg/dLRemisol ChemCholesterol in HDL [Mass/Vol] [...] 3 - 4 WEEKS = 500 - 59365' ' 4 - 5 WEEKS = 1000 - 92331' ' 5 - 6 WEEKS = 54579 - 417033' ' 6 - 8 WEEKS = 26060 - 143127' ' 8 - 12 WEEKS = 54468 - 869623'Triglyceride [Mass/Vol]212 mg/dLHigh <=149mg/dLRemisol ChemTSH Qn5.68 m[IU]/LHigh0.34 - 5.60 mcIU/mLRemisol Chem CHEMISTRYOrdered By: Chelsey Price on 38-21-4956BvK1c (Bld) [Mass fraction]5.9 %Normal<=5.9%[facility] [place] GyilHhmwPIFvjQ4pid 42-41-0269RwO3q (Bld) [Mass fraction]5.9 % Normal<=5.9[facility] HospitalComment on above:Performed By: #### [id number] #### [facility] [address], [place] [address]Oxgms Panelon 31-05-7045Mjbpgdydiqq [Mass/Vol]225 mg/dLHigh 120-200Mercy HospitalComment on above:Performed By: #### [id number] #### [facility] [address], [place] [address]Reqhakmouzv in HDL [Mass/Vol]40 mg/dLInvalid Interpretation CodeMercy HospitalComment on above:Result Comment: '>= 60 LOW RISK' '<= 40 HIGH RISK'Performed By: #### [id number] #### [facility] [address], [place] [address]Imotvgzabgt in LDL [Mass/Vol]171 mg/dLHigh<=129Mercy HospitalComment on above:Performed By: #### [id number] #### [facility] [address], [place] [address]Lmpsgovnstr in VLDL [Mass/Vol]42 mg/dLHigh7-40Mer[facility] HospitalComment on above:Performed By: #### [id number] #### [facility] [address], [place] [address]Evszjdndjkfw [Mass/Vol]212 mg/dLHigh<=149Mercy HospitalComment on above:Performed By: #### [id number] #### [facility] [address], [place] [address]MMGdb 52-70-9835CQZ Qn5.68 m[IU]/LHigh0.34-5.60Mer[facility] HospitalComment on above:Performed By: #### [id number] #### [facility] [address] [place], [place] [address]Xnwfqkcnum Visit Summaryon 91-90-2829Emrcspiode Visit Summary Ambulatory Visit Summary SANNA RENDON [...] EST With: Penelope CASAS DO, FAAFP Where: [facility] [address], [facility] [place] [address]- You Need to Schedule the Following Appointments Follow Up with Penelope CASAS DO, FAAFP, FAM, PED When: In 3 months Where: [address], [facility] [place] [address]- You Need to Complete the Following HgbA1c, Blood, Routine collect, *Est. 02/05/24 +/- 21 day(s), Order for future visit, Lab Collect, Gestational diabetes, Print Label By Order Location HgbA1c, Blood, Routine collect, *Est. 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 Gestational diabetes (O24.419: Gestational diabetes mellitus in , unspecified control) Metformin 500 mg daily XR tabs 2/day per TECHNOLOGY EDUCATION TEACHER Ordered: HgbA1c HgbA1c HgbA1c HgbA1c 6. Well [...] FAAFP, CHRIS, PED In 3 months [address] [facility], [facility] [place] [address]- Additional Instructions: Patient Education Acute Bronchitis, Adult Problem List/Past Medical History Ongoing Acute (more content not included)...[facility] Medical CenterComment on above:Result Comment: Electronically Signed [...] Community acquired pneumonia Refills: 5 Pickup at [facility] 1985 New azithromycin (azithromycin 250 mg Tab 5-day Dose Pack (Z-Jonny)) 1 Packets By Mouth As Directed Community acquired pneumonia Duration: 5 Days as directed on package labeling Pickup at [facility] 1985 Unchanged enoxaparin (Lovenox 40 [...] physician if questions or concerns Pharmacy Information [facility]: [address] [place] [phone] Allergies Milk Products (Illness) ciprofloxacin (Numbness and [...] you for choosing us for your care. [facility] Medicine Office/Clinic Noteon 04-25-4505Ndxxcr Medicine Office/Clinic NoteFahunt memorial hospital Medicine Office/Clinic Note Chief Complaint SOB [...] COVID exposure- no History of Present Illness SNANA RENDON is a 38 Years White Female presenting to [facility] with body aches and productive [...] puff(s), Inhalation, q6hr, 1 EA, Refill(s) 5, [facility] 1985, 168, cm, 02/01/2414:43:00 EDT, Height/Length Dosing, 101.1, kg, 02/02/24 14:43:00 EDT, Weight Dosing azithromycin, = 1 packet(s), Oral, As Directed, as directed on package labeling, X 5 day(s), # 6 tab(s), Refills(s) 0, Pharmacy: [facility] 1985, 168, cm, 02/02/24 14:43:00 [...] Bernstein MD, FAM, MED Only if needed [address] [place] [phone] Additional Instructions: Problem List/Past Medical History Ongoing [...] Vitamin D, 2000 International_Unit (more content not included)...[facility] CenterComment on above:Result Comment: Electronically Signed By: Anni Bernstein MD\.br\Date and Time Signed: 02/01/2415:03 EDTMRI Brain w/o Contraston 78-83-5194IKQ Brain w/o ContrastExam Date/Time: 12/06/2023 14:48 EDT [...] Barker MD Transcribed by: LINDY Technologist: [facility] CenterCortisolon 47-87-1937Pcjkkdic [Mass/Vol]12.5 microgram/dLInvalid Interpretation Code 6.2-19.4FAdena Regional Medical CenterComment on above:Result Comment: Please Note: The reference interval and flagging for this test is for an AM collection. If this is a PM collection please use: Cortisol PM: 2.3-11.9 Performed at: [facility] [id number] PhD Jd Garciaformed By: #### [id number] #### [facility] [address], [place] [address]J9 Freeon 29-32-4613Ozyf T3 [Mass/Vol]2.5 pg/mLInvalid Interpretation Code2.0-4.4FAdena Regional Medical CenterComment on above:Result Comment: Performed at: [facility] [id number] PhD Jd Garciaformed By: #### [id number] #### [facility] [address], [place] [address]Bjtowzxea 55-91-4482Rnuwhog [Catalytic activity/Vol]38 U/L Gjenoa21-213WmzyksMercy HospitalComment on above:Performed By: #### [id number] #### [facility] [address], [place] [address]HHDVVQBPXEgfpcix By: SYSTEM SYSTEM on 77-41-7499Skyobsa [Catalytic activity/Vol]38 U/AVufonp92 - 157 unit/LRemisol ChemCobalamin (Vitamin B12) [Mass/Vol]328 pg/gOFzezjw90 - 1500 pg/mLRemisol ChemCRP [Mass/Vol] 0.2 mg/dLNormal<=1.9mg/dLRemisol ChemFree T4 [Mass/Vol]0.58 ng/dLNormal0.58 - 1.64 ng/dLRemisol ChemTSH Qn4.97 m[IU]/LNormal0.34 - 5.60 mcIU/mLRemisol ChemCRP on 46-73-7564PTK [Mass/Vol]0.2 mg/dLNormal<=1.9[facility] Comment on above:Performed By: #### [id number] #### [facility] [address] [place] [address]Xhyv T4on 70-11-3273Hepm T4 [Mass/Vol]0.58 ng/dLNormal0.58-1.64 [facility] HospitalComment on above:Performed By: #### [id number] #### [facility] [address], [place] [address]WDTIPMMTXNXhgkfwz By: Isha Zheng on 66-89-0849DSQ (Bld) [Velocity]18 mm/hNormal0 - 34 mm/FT HemeAutoSSSed Rate Automatedon 92-39-8702VAX (Bld) [Velocity]18 mm/hNormal0-34[facility] Comment on above:Performed By: #### [id number] #### [facility] [address], [place] [address]AGYyy 36-71-8606IVQ Qn4.97 m[IU]/LNormal0.34-5.60Mer[facility] HospitalComment on above:Performed By: #### [id number] #### [facility] [address], [place] [address]Jgy B12on 75-32-6407Inlbvnaal (Vitamin B12) [Mass/Vol]328 pg/mL Rnatze07-0337SdrxttMercy HospitalComment on above:Performed By: #### [id number] #### [facility] [address], [place] [address]Trhgwg Medicine Office/Clinic Noteon 74-83-2709Otfaqc Medicine Office/Clinic NoteFahunt memorial hospital Medicine Office/Clinic Note Chief Complaint Right [...] Iron deficiency) Mild, 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 Pre-diabetes (R73.03: Prediabetes) Last A1c Continue metformin Nutrition: - Maintain optimal weight - Calorie restriction - Plant-based diet; high polyunsatur (more content not included)...[facility] CenterComment on above:Result Comment: Electronically Signed By: Jayant YEBOAH, Monica Varela\.br\Date and Time Signed: 11/09/23 15:56 EDTPhysician Referralon 42-04-3001Dyoclqhte Referral [id number]#1.00TIFFOhioHealth Southeastern Medical CenterAmbulatory Visit Summaryon 19-13-8229Dlgtvgdnss Visit Summary SANNA RENDON :1985 Visit Date:10/23/2023 Ambulatory Visit Instructions Your Diagnosis Dysfunction of right eustachian tube Nasal polyps Deviated septum BMI 37.0-37.9, adult Obesity Your Care Team Attending Physician - Shirlene YEBOAH, Loureds Baltazar Primary Care Physician - Penelope CASAS DO, FAAFP This Is Your Medications List ciprofloxacin-dexamethasone otic (Ciprodex 0.3%-0.1% Susp-Otic) enoxaparin (Lovenox 40 mg/0.4 mL Injection) ergocalciferol (Vitamin D) fluticasone nasal (Flonase 0.05 mg/inh [place]) metformin (MetFORMIN (Eqv-Glucophage XR) 500 mg oral [...] EDT With: Penelope CASAS DO, FAAFP [facility]/Clinic Noteon 10-16-4498Cmatej Medicine Office/Clinic NoteChief Complaint pt here for [...] Mouth: mucous membranes pink, moist and intact. [place] posterior oropharynx, no palatal inflammation,uvula midline, no [...] kg, 10/23/23 16:55:00 EDT, Weight Dosing [facility] [place]ulatory Referral 2. Nasal polyps (J33.9: Nasal polyp, unspecified) pt reported - moved before previous ENT could perform surgery - submitted new referral at this time Ordered: [facility] [place]ulatory Referral 3. Deviated septum (J34.2: Deviated nasal septum) pt reported - moved before previous ENT could perform surgery - see #2 Ordered: [facility] [place]ulatory Referral 4. BMI 37.0-37.9, adult [...] Dosing 5. Obesity ( (more content not included)...[facility] Comment on above:Result Comment: Electronically Signed By: Shirlene YEBOAH, Lourdes Baltazar\.br\Date and Time Signed: 10/23/23 17:13 EDTPatient Educationon 06-16-5629Zhrdkvd EducationENT Deviated Septum The septum is the [...] specializes in ear, nose, and throat disorders (ice cutter, or ENT) for more tests and treatment. [...] Follow these instructions at home: ? Take visf-rce-dztfywv and prescription medicines only as told by [...] specializes in ear, nose, and throat disorders (ice cutter, or ENT) for more tests and treatment. This information is not intended to replace advice given to you by your health care provider. Make sure you discuss any questions you have with your health care provider. Document Revised: 12/12/2021 Document Reviewed: 12/12/2021 [employer] Patient Education ? 2022 [employer]gifty. Nasal Polyps Nasal polyps are growths that form in the nose. Inflammation in the nose or sinus openings can leadto changes in the tissue (mucosa) that lines these areas. Long-term inflammation causes the mucosa to grow into a polyp filled with watery mucus. Nasal polyps look like moist, ochoa grapes in the nose. Nasal polyps are not cancer (more content not included)...NormalFisher Western [facility] Hospital CenterCT Abdomen/Pelvis w/o Contraston 33-05-4454BM Abdomen/Pelvis w/o Contrast Exam Date/Time: 09/28/2023 19:58 [...] Given? No Oral contrast amount in ml's: 0NormUC West Chester HospitalB hCG Qualon 18-45-1258Saoi HCG ( test) QlNegativeOhioHealth Southeastern Medical Center Comment on above:Performed By: #### [id number] #### [facility] [address], [place] [address]GLPkb 67-46-3687Bnxhc gap [Moles/Vol]13 mmol/LNormal6-16Mercy HospitalComment on above:Performed By: #### [id number] #### [facility] [address], [place] [address]Drnjtli [Mass/Vol]9.9 mg/dLNormal8.9-11.1FAdena Regional Medical CenterComment on above:Performed By: #### [id number] #### [facility] [address], [place] [address]Vclanfnn [Moles/Vol]101 mmol/NClzivy312-668BlbjveMercy HospitalComment on above:Performed By: #### [id number] #### [facility] [address], [place] [address]QU7 [Moles/Vol]25 mmol/FEilxhh72-24IyoptbMercy Hospital Comment on above:Performed By: #### [id number] #### [facility] [address], [place] [address]Baffnftwqv [Mass/Vol]0.9 mg/dLNormal0.5-1.3FAdena Regional Medical CenterComment on above:Performed By: #### [id number] #### [facility] [address], [place] [address]Vtauprt [Mass/Vol]94 mg/kNLuohop45-621AxzevrMercy HospitalComment on above:Performed By: #### [id number] #### [facility] [address], [place] [address]Yvcdtccfn [Moles/Vol]3.6 mmol/LNormal3.5-5.3FAdena Regional Medical CenterComment on above:Performed By: #### [id number] #### [facility] [address], [place] [address]Uopfgp [Moles/Vol]135 mmol/WYtmdef423-175BrnyodMercy HospitalComment on above:Performed By: #### [id number] #### [facility] [address], [place] [address]Hniq nitrogen [Mass/Vol]8 mg/dLNormal5-21Mercy HospitalComment on above:Performed By: #### [id number] #### [facility] [address] [place] [address] 94[address]Npnt nitrogen/Creatinine [Mass ratio]9 No BgrgoBga20-65AuqgqkMercy HospitalComment on above:Performed By: #### [id number] #### [facility] [address] [place] [address]IQO w/ Auto Diffon 06-15-5014Twkmvnnxt/100 WBC (Bld)0.7 %Normal 0.0-2.0Mercy HospitalComment on above:Performed By: #### [id number] #### [facility] [address] [place] [address] 149[address]Vvazpibaz/Leukocytes Auto (Bld) [Pure # fraction]0.1 E9/LNormal 0.0-0.2FAdena Regional Medical CenterComment on above:Performed By: #### [id number] #### [facility] [address] [place] [address]Vkxkwnbowyl (Bld) [#/Vol]0.0 E9/LNormal0.0-0.5FAdena Regional Medical CenterComment on above:Performed By: #### [id number] #### [facility] [address] [place] [address]Vxlglypnjfh/100 WBC (Bld)0.5 %Normal0.0-8.0Mercy HospitalComment on above:Performed By: #### [id number] #### [facility] [address] [place] [address]Zourrnxjbar distribution width (RBC) [Ratio]14.3 %High10.9-14.2 Mercy HospitalComment on above:Performed By: #### [id number] #### [facility] [address] [place] [address] 360[address]Mpllqdlvot (Bld) [Volume fraction]39.5 %Fetxyb46.0-46.0Mercy HospitalComment on above:Performed By: #### [id number] #### [facility] [address] [place] [address]Dyhycrscmx (Bld) [Mass/Vol]13.2 g/mJAxyfgb75.0-16.0Mercy HospitalComment on above:Performed By: #### [id number] #### [facility] [address] [place], [place] [address] 03297Pphhqelgoua (Bld) [#/Vol]3.5 E9/LNormal1.0-4.0Mercy HospitalComment on above:Performed By: #### [id number] #### [facility] [address] [place] [address] 26893Iqijeudiejq/100 WBC (Bld)35.6 %Afycdl02.0-50.0Mercy HospitalComment on above:Performed By: #### [id number] #### [facility] [address] [place] [address] 79884NWJ (RBC) [Entitic mass]29.3 ygRguvtr59.0-34.0Mercy HospitalComment on above:Performed By: #### [id number] #### [facility] [address] [place] [address] 55624BGZJ (RBC) [Mass/Vol]33.5 g/gFSfyzjn70.4-36.0Mercy HospitalComment on above:Performed By: #### [id number] #### [facility] [address] [place] [address] 11400YZB (RBC) [Entitic vol]87.4 ePIfelal07.0-100.0Mercy HospitalComment on above:Performed By: #### [id number] #### [facility] [address] [place] [address] 90002Ovcewwleu (Bld) [#/Vol]0.7 E9/LNormal0.2-1.0Mercy HospitalComment on above:Performed By: #### [id number] #### [facility] [address] [place] [address] 98944Fxxevsnnrku (Bld) [#/Vol]5.6 E9/LNormal2.0-7.5FAdena Regional Medical CenterComment on above:Performed By: #### [id number] #### [facility] [address] [place] [address] 29839Mzsybgbpcfh/100 WBC (Bld)56.4 %Pwckqr23.0-75.0Mercy HospitalComment on above:Performed By: #### [id number] #### [facility] [address] [place] [address] 91770Tusrmhla mean volume (Bld) [Entitic vol]8.1 fLNormal6.4-10.8 [facility] HospitalComment on above:Performed By: #### [id number] #### [facility] [address] [place] [address] 00202Zkguantxz (Bld) [#/Vol]360.0 E9/BRktbjf260.0-500.0Mercy HospitalComment on above:Performed By: #### [id number] #### [facility] [address] [place] [address] 98222SEF (Bld) [#/Vol]4.5 E12/LNormal4.3-5.9Mercy HospitalComment on above:Performed By: #### [id number] #### [facility] [address] [place] [address] 77008HOY corrected for nucl RBC Auto (Bld) [#/Vol]9.9 E9/LNormal 4.0-11.0Mercy HospitalComment on above:Performed By: #### [id number] #### [facility] [address] [place] [address] 13894XTCTIRXFJJxnhgze By: SYSTEM SYSTEM on 94-35-9581Rclnthx [Mass/Vol]4.8 g/dLNormal3.3 - 5.0 gm/dLRemisol ChemAlbumin/Globulin [Mass ratio] 1.6 {ratio}Normal1.1 - 2.2Remisol ChemALP [Catalytic activity/Vol]66 [iU]/d Wxatem76 - 98 Int._Unit/LRemisol ChemALT No additional P-5'-P [Catalytic activity/Vol]16 [iU]/dNormal6 - 46 Int._Unit/LRemisol ChemAnion gap [Moles/Vol] 13 mmol/LNormal6 - 16 mEq/LRemisol ChemAST [Catalytic activity/Vol]15 [iU]/d Normal5 - 43 Int._Unit/LRemisol ChemBilirubin [Mass/Vol]0.3 mg/dLNormal0.0 - 1.1 mg/dLRemisol ChemBilirubin.direct [Mass/Vol]0.0 mg/dLNormal0.0 - 0.4 mg/dL Remisol ChemBilirubin.indirect [Mass or moles/Vol]0.3 mg/dLNormal0.1 - 0.9 mg/dL Remisol ChemCalcium [Mass/Vol]9.9 mg/dLNormal8.9 - 11.1 mg/dLRemisol Chem Chloride [Moles/Vol]101 mmol/VBjentf647 - 111 mmol/LRemisol ChemCO2 [Moles/Vol] 25 mmol/BLwufty24 - 31 mmol/LRemisol ChemCreatinine [Mass/Vol]0.9 mg/dLNormal0.5 - 1.3 mg/dLRemisol YixbtBBA90 mL/min/1.73 t7Pcbtjp>=59mL/min/1.73 k3Heqtica ChemGlobulin (S) [Mass/Vol]3.0 g/dLNormal1.4 - 4.0 gm/dLRemisol ChemGlucose [Mass/Vol]94 mg/yMEblsqn48 - 199 mg/dLRemisol ChemLipase [Catalytic activity/Vol]26 U/NEskufv86 - 58 unit/LRemisol ChemPotassium [Moles/Vol]3.6 mmol/LNormal3.5 - 5.3 mmol/LRemisol ChemProtein [Mass/Vol]7.8 g/dLNormal6.0 - 7.8 gm/dLRemisol ChemSodium [Moles/Vol]135 mmol/BNvfjrc192 - 145 mmol/LRemisol ChemUrea nitrogen [Mass/Vol]8 mg/dLNormal5 - 21 mg/dLRemisol ChemUrea nitrogen/Creatinine [Mass ratio]9 mg/mgLow10 - 20Remisol ChemConsent for Treatmenton 96-25-1174Izltpqr for Treatment [id number]#1.00[facility] HospitalDischarge Instructionson 74-41-1230Tfumxfjwj Instructions [id number]#1.00TIFC[facility] Foundation Clinical Summaryon 86-85-7874AD Clinical Summary [place] [id number] ED Clinical Summary Person Information Name: SANNA RENDON [facility] Age: 37 Years : 1985 Sex: Female Language: Mosotho PCP: Penelope CASAS DO, FAAFP Marital Status: Phone: [phone] Visit Id: Visit Reason: Medical problem - [...] 21:22:15 09/28/2023 21:22:15 09/28/2023 21:22:15 [facility] [id number] PHYS DOC NOTES: MEDICAL INFORMATION: Prescriptions Given: Medications to Continue with No Changes Other Medications enoxaparin (Lovenox 40 mg/0.4 mL Injection) 40 Milligram Subcutaneous every 24 hours. ergocalciferol (Vitamin D) 2,000 International unit By Mouth every week. fluticasone nasal (Flonase 0.05 mg/inh Duryea) 2 Sprays Nasal Inhalation every day. each nostril. metformin (MetFORMIN (Eqv-Glucophage XR) 500 mg oral tablet, extended release) 2 Tablets By Mouth every day. PATIENT EDUCATION INFORMATION: Instructions: Abdominal Pain, Adult Follow up: With: Address: When: Penelope CASAS [address] [place] [address], [place] [address] Business (1) In 3 days DIAGNOSIS: 1:Abdominal painNoMer[facility] Health [facility] CenterED Note-Physicianon 09-28-2023 ED Note-PhysicianPatient was [...] understanding agreement this plan is discharged stable condition.[facility] CenterComment on above:Result Comment: Electronically Signed [...] mL, IV, Once Home Flonase 0.05 mg/inh Duryea, 2 spray(s), Nasal, Daily Lovenox 40 mg/0.4 [...] Lab Results No qual (more content not included)...[facility] CenterComment on above:Result Comment: Electronically Signed By: Bijan Miramontes PA-C\.br\Date and Time Signed: 09/27/2417:50 EDT\.br\Electronically Co-Signed By: Benny Uribe DO\.br\Date and Time Co-Signed: 09/27/2418:44 EDTED Patient Education Noteon 27-22-6749ZN Patient Education NoteGastroenterology Abdominal Pain, Adult Pain [...] these instructions at home: Medicines ? Take auby-jll-nseyjiv and prescription medicines only as told by [...] your condition for any changes. ? Take bcyc-bta-hlguhyu and prescription medicines only as told by [...] Reviewed: 08/25/2019 Elsevier Patient Education ? 2022 Bgifty.[facility] ED Patient Summaryon 10-14-3814VP Patient Summary [address] [address] Patient Discharge Instructions Person Information Name: SANNA RENDON Age: 37 Years Arrival Date: 09/28/2023 18:21:25 Discharge Diagnosis: 1:Abdominal pain Primary Care Physician: Pneelope CASAS DO, FAAFP Provider Information Primary Provider: Benny Uribe DO Advanced Can Vacuum Tester:Bijan Miramontes PA-C The exam and treatment you received in the Emergency Department were for an urgent problem and are not intended as complete care. It is important that you follow up with a doctor, nurse practitioner,or physician?s scheduling assistant for ongoing care. If your symptoms [...] Follow-up Instructions: With: Address: When: Penelope CASAS [address] [place] [address], [place] [address] Business (1) In 3 days In the event that this physician does not participate in your insurance network, please consult with your insurance company to find a nearby participating provider. Patient Education Materials: Abdominal Pain, Adult A MESSAGE TO ALL PATIENTS REGARDING OPIOIDS PRESCRIPTION OPIOIDS: WHAT YOU NEED TO KNOW Prescription opioids can be used to help relieve zemdocso-hd-qhmtcp pain and are often prescribed following a [...] your community drug take- back program or yourChinac.comrmacy mail-back program, or flush them down the toilet, following guidance from the Food and Drug Administration (www.fda.gov/Drugs/ResourcesForYou). ? Visit www.cdc.gov/drugoverdose to learn about the risks of opioids abuse and overdose. ? If you believe you may be struggling with addiction, tell your health careers adviser and ask for guidance or call [facility]?S National Helpline at 3-947-610-[employer] AS. v Source: Dep (more content not included)...[facility] Family Medicine Office/Clinic Noteon 22-24-0968Mbfatu Medicine Office/Clinic NoteChief Complaint abdominal pain HPI [...] agree with above documented HPI by medical unit secretary. Portions of this record may have been created with voice recognition artificial intelligence software, specifically [employer], [employer] and or waygum. Substitutions may have occurred due to the inherent limitations of voice recognition and artificial intelligence software. Patient is a 37-year-old female who presents to [facility] care, for right lower quadrant [...] Repeat BP 140/90. 37-year-old female presented to [facility], for right lower quadrant abdominal pain, worseningsymptoms throughout the day, history of ovarian cyst, still has her appendix, no right upper quadrant pain. Patient worsening pain on exam, but no acute abdomen. Patient is willing to go to the emergency room after being discharged from [facility], for further evaluation of right lower quadrant [...] loss. We can o (more content not included)...[facility] Medical CenterComment on above:Result Comment: Electronically Signed By: CHARLA QUINTEROS, JANET\.br\Date and Time Signed: 09/28/23 18:28 EDTHEMATOLOGYOrdered By: SYSTEM SYSTEM on 79-46-0934Kvtglsizb/100 WBC (Bld)0.7 %Normal0.0 - 2.0 %Remisol HemeBasophils/Leukocytes Auto (Bld) [Pure # fraction]0.1 E9/LNormal0.0 - 0.2 E9/LRemisol HemeEosinophils (Bld) [#/Vol]0.0 E9/LNormal0.0 - 0.5 E9/LRemisol HemeEosinophils/100 WBC (Bld)0.5 % Normal0.0 - 8.0 %Remisol HemeErythrocyte distribution width (RBC) [Ratio]14.3 % High10.9 - 14.2 %Remisol HemeHematocrit (Bld) [Volume fraction]39.5 %Ljbxdd54.0 - 46.0 %Remisol HemeHemoglobin (Bld) [Mass/Vol]13.2 g/jJUetjox12.0 - 16.0 gm/dL Remisol HemeLymphocytes (Bld) [#/Vol]3.5 E9/LNormal1.0 - 4.0 E9/LRemisol Heme Lymphocytes/100 WBC (Bld)35.6 %Perlpw52.0 - 50.0 %Remisol HemeMCH (RBC) [Entitic mass]29.3 hrHwlnrj67.0 - 34.0 pgRemisol HemeMCHC (RBC) [Mass/Vol]33.5 g/dL Jczotq62.4 - 36.0 gm/dLRemisol HemeMCV (RBC) [Entitic vol]87.4 nOHkyqvi39.0 - 100.0 fLRemisol HemeMonocytes (Bld) [#/Vol]0.7 E9/LNormal0.2 - 1.0 E9/LRemisol HemeMonocytes/100 WBC (Bld)6.8 %Normal4.0 - 14.0 %Remisol HemeNeutrophils (Bld) [#/Vol]5.6 E9/LNormal2.0 - 7.5 E9/LRemisol HemeNeutrophils/100 WBC (Bld)56.4 % Lgtcro02.0 - 75.0 %Remisol HemePlatelet mean volume (Bld) [Entitic vol]8.1 fL Normal6.4 - 10.8 fLRemisol HemePlatelets (Bld) [#/Vol]360.0 E9/GIycvzx680.0 - 500.0 E9/LRemisol HemeRBC (Bld) [#/Vol]4.5 E12/LNormal4.3 - 5.9 E12/LRemisol HemeWBC corrected for nucl RBC Auto (Bld) [#/Vol]9.9 E9/LNormal4.0 - 11.0 E9/L Remisol HemeHep Func Panelon 55-31-2058Dhxaiyg [Mass/Vol]4.8 g/dLNormal3.3-5.0 Mercy HospitalComment on above:Performed By: #### [id number] #### [facility] [address] [place], [place] [address]Vzwgiok/Globulin (S) [Mass conc ratio]1.0Lxuobp9.1-2.2FAdena Regional Medical CenterComment on above:Performed By: #### [id number] #### [facility] [address] [place] [address] 13768DUV [Catalytic activity/Vol]66 Int._Unit/CGislaq92-65OidddeMercy HospitalComment on above:Performed By: #### [id number] #### [facility] [address] [place] [address] 24037OYX No additional P-5'-P [Catalytic activity/Vol]16 Int._Unit/L Normal6-46Mercy HospitalComment on above:Performed By: #### [id number] #### [facility] [address] [place] [address] 74513JVH [Catalytic activity/Vol]15 Int._Unit/LNormal5-43Mercy HospitalComment on above:Performed By: #### [id number] #### [facility] [address] [place] [address] 09647Ldmymyrog [Mass/Vol]0.3 mg/dLNormal0.0-1.1FAdena Regional Medical CenterComment on above:Performed By: #### [id number] #### [facility] [address] [place] [address] 91166Faohznomh.direct [Mass/Vol]0.0 mg/dLNormal0.0-0.4FAdena Regional Medical CenterComment on above:Performed By: #### [id number] #### [facility] [address] [place] [address] 764[address]Zvlkxvmgg.indirect [Mass or moles/Vol]0.3 mg/dLNormal0.1-0.9 [facility] HospitalComment on above:Performed By: #### [id number] #### [facility] [address], [place] [address]Ccxmukij (S) [Mass/Vol]3.0 g/dLNormal1.4-4.0Mercy HospitalComment on above:Performed By: #### [id number] #### [facility] [address], [place] [address]Sfyxwfd [Mass/Vol]7.8 g/dLNormal6.0-7.8Mercy HospitalComment on above:Performed By: #### [id number] #### [facility] [address] [place], [place] [address]Meodnu Levelon 28-24-8593Xaqudj [Catalytic activity/Vol]26 U/L Mtdrlb62-21YoeehiMercy HospitalComment on above:Performed By: #### [id number] #### [facility] [address] [place], [place] [address]Jdrnnro Educationon 21-43-3726Xjfutof EducationCardiovascular Hypertension, Adult Hypertension is another name [...] Keep all follow-up visits. Medicines ? Take bexb-zki-mmkuamj and prescription medicines only as told by [...] blood. ? For m (more content not included)...[facility] CenterRAD - Preliminary Cat Scan Reporton 36-81-7621UKA - Preliminary Cat Scan Report [id number]#1.00TIFFNormalSelect Medical Specialty Hospital - Boardman, IncEROLOGYOrdered By: Amanda Siegel on 37-76-4462Mcfu HCG ( test) QlNegative (09/28/23 6:59 PM)[facility] SeroUA with Cult Rflxon 49-04-6985Alrkaduan Ql (U)NegativeNormalNegativeMercy HospitalComment on above:Performed By: #### [id number] ####[facility] Dozmhailcc[address] AveNornorthwell healthk, QM[address]Flhupad (U)ClearNormalClearCounts Include 234 Beds At The Lev[facility] Children'S Hospitaler [facility] CenterComment on above:Performed By: #### [id number] ####[facility] Sieizprgtb982 Douglas AveNorwalk, PB[address]684Zvkrm (U)ColorlessAbnormalYellowMercy HospitalComment on above:Result Comment: Microscopic readings are only performed on those samples that meet specific criteria set forth by [facility].Performed By: #### [id number] ####[place] [address] Douglas AveNsaint mary's hospital, [id number] Ql (U)Negative NormalNegativeMercy HospitalComment on above:Performed By: #### [id number] ####[address] AveNormiddlesex hospital, [place] [address]Jzvaqkqvjk Auto test strip (U) [Mass/Vol]NegativeNormalNegativeMercy HospitalComment on above:Performed By: #### [id number] ####[place] [address] AveNormiddlesex hospital, YC[address]Xudjntm Auto test strip Ql (U)NegativeNormalNegativeMercy HospitalComment on above: Performed By: #### [id number] ####[place] [address] AveNormiddlesex hospital, FM[address]Lopdexzqj esterase Auto test strip Ql (U)Negative NormalNegativeMercy HospitalComment on above:Performed By: #### [id number] ####[facility] Mwcifmvtpi322 Douglas AveNormiddlesex hospital, [place] [address]Dnlfbhq Auto test strip Ql (U)NegativeNormalNegativeMercy HospitalComment on above:Performed By: #### [id number] ####[place] [address] AveNorwalk, [id number] (U)7.0 [pH]Invalid Interpretation Code5.0-9.0Mercy HospitalComment on above:Performed By: #### [id number] ####[facility] Cbyxuwytye[address] [facility], PG[address]Kylimhf Ql (U)NegativeNormalNegativeMercy HospitalComment on above:Performed By: #### [id number] ####[facility] Ilxznhnxzo[address] [facility], GM9[address]Qqxrdfzn gravity (U) [Rel density]1.003Invalid Interpretation Code1.005-1.030[facility] Comment on above:Performed By: #### [id number] ####[address], ZH[address]Xfebwxefzuni (U) [Mass/Vol]Negative NormalNegativeMercy HospitalComment on above:Performed By: #### [id number] ####[place] [address] [facility] [place] [address]Rtxd of Urine collection methodClean [facility] Comment on above:Performed By: #### [id number] ####[place] [address] [facility] [place]TCWKUFYOPFYucmxvb By: SYSTEM SYSTEM on 43-11-6689Ngvzeuvek Ql (U)NegativeNormalNegativemg/dLMERCY REH[facility] [place] [facility] [place] UA Auto SSClarity (U) Clear (09/28/23 7:35 PM)NormalClearFTMC UA Auto SSColor (U)Colorless 1 *ABN* (09/28/23 7:35 PM)Invalid Interpretation CodeYellowMERCY REHABIL[facility]ATION [facility] [place] [facility] [place] UA Auto SSComment on above:Interpretive Data: Microscopic readings are only performed on those samples that meet specific criteria set forth by [facility].Glucose Ql (U)NegativeNormalNegativemg/dLFT UA Auto SSHemoglobin Auto test strip (U) [Mass/Vol]NegativeNormalNegativemg/dLFT UA Auto SSKetones Auto test strip Ql (U)NegativeNormalNegativemg/dLFT UA Auto SSLeukocyte esterase Auto test strip Ql (U)NegativeNormalNegativeLeu/uLFT UA Auto SS Nitrite Auto test strip Ql (U)NegativeNormalNegativemg/dLFT UA Auto SSpH (U) 7.0 *NA* (09/28/23 7:35 PM)Invalid Interpretation Code5.0 - 9.0[facility] [place] [place] UA Auto SSProtein Ql (U)NegativeNormalNegativemg/dLMERCY REHAB[facility] [place] [facility] [place] UA Auto SSSpecific gravity (U) [Rel density] 1.003 *NA* (09/28/23 7:35 PM)Invalid Interpretation Code1.005 - 1.030[facility] [place] [place] UA Auto SS Urobilinogen (U) [Mass/Vol]NegativeNormalNegativemg/dLMERCY REHAB[facility] [place] [facility] [place] UA Auto SSURINALYSIS Ordered By: Bijan Miramontes on 69-49-3125KM Spec DescClean Catch (09/28/23 7:35 PM)NormalMERCY RE[facility]ATION [facility] [place] [facility] [place] UA Auto SS egFRon 74-65-9139aYXD12 mL/min/1.73 q4Ynekja>=59Fisher [facility] CenterComment on above:Order Comment: Order added by Discern Expert.Performed By: #### [id number] #### [facility] Laboratory [address], [place] [address]Jmezzwwhbp Visit Summaryon 24-58-4381Sucoucxsvg Visit Summary SANNA RENDON :1985 Visit Date:08/03/2023 [...] (Vitamin D) fluticasone nasal (Flonase 0.05 mg/inh Duryea) metformin (MetFORMIN (Eqv-Glucophage XR) 500 mg oral [...] PED When: In 4 months Where: [address] [place] [address]- You Need to Complete the Following HgbA1c, [...] Unchanged fluticasone nasal (Flonase 0.05 mg/ inh Duryea) 2 Sprays Nasal Inhalation Every day each [...] ? Walking a mile (more content not included)...[facility] Medicine Office/Clinic Noteon 91-27-8059Yjkzsl Medicine Office/Clinic NoteChief Complaint Wants to discuss [...] comfortable with plan. PNMV Ordered: A1c POC 93271 Total time spent preparing the chart, conducting [...] FAAFP, FAM, PED In 4 months [address] [facility] [place] [address]- Additional Instructions: Patient Education Exercising to Lose Weight Problem Lis (more content not included)...[facility] Comment on above:Result Comment: Electronically Signed By: Penelope CASAS DO, FAAFP\.br\Date and Time Signed: 08/03/23 12:19 EDTPTriStar [facility] 08-03-2023 Patient EducationPhysical Medicine and Rehabilitation Exercising [...] your health care provider or diet and clinical nutrition manager (dietitian). This may include: ? Eating fewer [...] regular exercise is e (more content not included)...[facility] Medical CenterPatient Educationon 78-92-3700Oqjauwm EducationEndocrinology Blood Glucose Monitoring, Adult Monitoring your [...] meter by following in (more content not included)...[facility] CenterLab Reportson 62-06-8497Psy Reports [id number]#1.00[facility]'s HospitalConsultation Noteon 15-55-6550Nfyamjbtqyge Note [id number]#1.00[facility]'s HospitalAmbulatory Visit Summaryon 98-77-2055Atffhotszg Visit Summary SANNA RENDON :1985 Visit Date:05/25/2023 [...] EDT With: Penelope CASAS DO, FAAFP [facility] Office/Clinic Noteon 29-85-1925Tzwshp Medicine Office/Clinic NoteChief Complaint States she is [...] Benadryl. 2. 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 [...] FAAFP, FAM, PED In 2 months [address] [facility], [place] [address]- Additional Instructions: Patient Education Eustachian Tube Dysfunction Dyshidrotic Eczema Allergies, Tadeo (more content not included)...[facility] Comment on above:Result Comment: Electronically [...] ears completely after. General instructions ? Take ahcy-fvp-jmxqoij and prescription medicines only as told by [...] cases are treated w (more content not included)...[facility] Urineon 97-55-4989Lmyedqbq identified Cx Nom (U) Microbiology PROCEDURE: Urine [...] R1: This test was performed at: [facility], [address] [place] [address], [address]- , [place], PmnjhpEnrfemOhioHealth Riverside Methodist HospitalComment on above:Performed By: #### [id number] ####[address] [address]Tibwhsg for Treatmenton 28-31-2269Bedipdf for Treatment [id number]#1.00TIFFOhioHealth Southeastern Medical CenterUrinalysison 07-43-8771Ovttpxnq LM Ql (Urine sed)TRACENormalTraceMercy HospitalComment on above:Performed By: #### [id number] ####[address] [address]Inbexoxyo Ql (U) NegativeNormalNegativeMercy HospitalComment on above:Performed By: #### [id number] ####[address] [address]Gpxtqvd (U)CLOUDYAbnormalClearFAdena Regional Medical CenterComment on above:Performed By: #### [id number] ####[address] [address]Pmuaq (U)YELLOWNormalYellowMercy HospitalComment on above:Performed By: #### [id number] ####[address] [address]Bazhatskye cells.squamous LM.HPF (Urine sed) [#/Area]/[HPF]Normal0-2FAdena Regional Medical CenterComment on above:Performed By: #### [id number] ####[address] [address]Flocmtf Test strip (U) [Mass/Vol]NegativeNormal NegativeMercy HospitalComment on above:Performed By: #### [id number] ####[address] [address] Hemoglobin Ql (U)NegativermalNegWilson Memorial HospitalComment on above:Performed By: #### [id number] ####[address] [address]Iitbncg (U) [Mass/Vol]NegativeNormalNegativeMercy HospitalComment on above:Performed By: #### [id number] ####[address] [address] [place].plasma/[place].RBC (Bld) [Mass ratio]7-3Xrsepp6-1Tgkfcp [facility] CenterComment on above:Performed By: #### [id number] ####[address] [address]Iqbefhu Ql (U)NegativeNormal [facility] Memorial HospitalComment on above:Performed By: #### [id number] ####[address] [address]iP (U)6.0 [pH]Invalid Interpretation Code5.0-9.0Mercy HospitalComment on above:Performed By: #### [id number] ####[address] [address]Usvewms (U) [Mass/Vol]NegativeNormal NegativeMercy HospitalComment on above:Performed By: #### [id number] ####[address] [address] Specific gravity (U) [Rel density]<=1.005Invalid Interpretation Code1.005-1.030 [facility] HospitalComment on above:Performed By: #### [id number] ####[address] [address]Ffdz of Urine collection methodClean CatchNormalMercy HospitalComment on above:Performed By: #### [id number] ####[address], [place] [address]Ybebwybsokzv Qn (U)0.2 {Nicole'U}/dLNormal0.0-1.0 [facility] HospitalComment on above:Performed By: #### [id number] ####[facility] [address] [place], [place] [address]YCP Auto Ql (U)TRACEAbnormalNegativeMercy HospitalComment on above: Performed By: #### [id number] ####[facility] [address] [place], [place] [address]DAL LM.HPF (Urine sed) [#/Area]5-6Vewlbk2-9Bmmcel [facility] CenterComment on above:Performed By: #### [id number] ####[facility] Ish[address] [place], [place] [address]Ewksnrhcgz Visit Summaryon 46-71-2793Micmjbifuj Visit Summary SANNA RENDON :1985 Visit Date:04/27/2023 [...] EST With: Penelope CASAS DO, FAAFP [facility] CareNoOhio[facility] CHEMISTRYOrdered By: SYSTEM SYSTEM on 33-20-7267TNZ Qn4.04 m[IU]/LNormal0.34 - 5.60 mcIU/mLRemisol ChemBrigham And Women'S [facility] Medicine Office/Clinic Noteon 63-94-4912Ukshsi Medicine Office/Clinic NoteChief Complaint Since last Sunday [...] feeding. No loss of taste nor smell. [id number] while taking Glucophage XR 500 mg p.o. [...] Push fluids and Tylenol and or ibuprofen ybis-pdc-fjaodah as directed. Patient does not appear ill [...] Your BMIand weight manag (more content not included)...[facility] CenterComment on above: Result Comment: Electronically Signed By: PRAVEEN RESENDEZ FAAFP, Penelope Tony\.br\Date and Time Signed: 04/27/23 12:53 ESTPatient Educationon 07-60-7585Offkrje Education Endocrinology Diabetes Mellitus and Exercise Exercising [...] plan? Your health care provider or certified credit counselor can help you make a plan for [...] stroke). Where to find more information ? [place] [employer]: www.diabetes.org Summary ? Exercising regularly is important for overall health, especially for people who have diabetes mellitus. ? Exercising has many health benefits. It increases muscle strength and bone density and reduces body fat and stress. It also lowers and controls blood glucose. ? Your health care provider or certified credit counselor can help you make an activity plan [...] provider. Document Revised: 01/12/2020 Document Reviewed: 01/12/2020 Else5[employer] Patient Education ? 2022 [employer] Preventing Hypoglycemia Hypoglycemia occurs when the level of sugar (glucose) in the blood is too low. Hypoglycemia can happen in people who do or do not have diabetes (diabetes (more content not included)...NormalMercy HospitalTSHon 37-10-6816KZW Qn 4.04 m[IU]/LNormal0.34-5.60Mercy HospitalComment on above:Performed By: #### [id number] ####[facility] [address] [place], [place] [address]Nthyicjcnm Visit Summaryon 99-36-4089Pyocmjyjla Visit Summary SANNA RENDON :1985 Visit Date:02/15/2023 [...] PED When: In 2 months Where: [address], [address] [place] [address]- You Need to Complete the Following HgbA1c, [...] miscarriage Suspected COVID-19 virus infection Vaginal tabitha [facility] Medicine Office/Clinic Noteon [id number] Medicine Office/Clinic NoteChief Complaint States since Sunday her right ear is draining and is a little painful 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 She is continuing 500 mg of metformin [...] Contact Information PRAVEEN Johnson (more content not included)...[facility] CenterComment on above:Result Comment: Electronically Signed [...] cannot use soap and water, use hand registered safety engineer. 2. Make sure your ears are clean [...] cannot use soap and water, use hand registered safety engineer. Follow these instructions at home: ? Use [...] Reviewed: 02/11/2020 Elsevier Patient Education ? 2022 [employer] Infectious Disease Otitis Externa Otitis externa [...] you start to feel better. ? Take fsai-krx-iqscfro and prescription medicines only as told by your doctor. ? Avoid getting water in your ears as told by your doctor. You may be told to avoid swimming or water sports for a few days. ? Keep all follow-up visits. How is this prevented? ? Keep your ears dry. Use the corner o (more content not included)...Normal Mercy HospitalPatient Educationon 44-12-2326Uwnstxr Education Immunology Fatigue If you have fatigue, [...] these instructions at home: Medicines ? Take jcfu-hgz-nqdmmre and prescription medicines only as told by [...] ? Text the Crisis Text Line at [id number]. Summary ? If you have fatigue, you [...] provider. Document Revised: 02/06/2022 Document Reviewed: 02/06/2022 [employer] Patient Education ? 2022 [employer]. Urology Urodynamic Testing Urodynamic tests are [...] Leaking urine (inco (more content not included)...NormalMercy HospitalCHEMISTRYOrdered By: SYSTEM SYSTEM on 60-21-2942Cqnz T4 [Mass/Vol]0.58 ng/dLNormal0.58 - 1.64 ng/dLFTMC RemisolTSH Qn3.35 m[IU]/LNormal0.34 - 5.60 mcIU/mLFTMC RemisolAlbumin [Mass/Vol]4.5 g/dLNormal3.3 - 5.0 gm/dLFTMC Remisol Albumin/Globulin [Mass ratio]1.4 {ratio}Normal1.1 - 2.2[facility] RemisolALP [Catalytic activity/Vol]62 [iU]/xTaysiq72 - 98 Int._Unit/LFTMC RemisolALT No additional P-5'-P [Catalytic activity/Vol]27 [iU]/dNormal6 - 46 Int._Unit/LFTMC RemisolAnion gap [Moles/Vol]13 mmol/LNormal6 - 16 mEq/LFTMC RemisolAST [Catalytic activity/Vol]21 [iU]/dNormal5 - 43 Int._Unit/LFTMC RemisolBilirubin [Mass/Vol]0.3 mg/dLNormal0.0 - 1.1 mg/dLFTMC RemisolCalcium [Mass/Vol]9.6 mg/dL Normal8.9 - 11.1 mg/dLFTMC RemisolChloride [Moles/Vol]104 mmol/PCbrkpy228 - 111 mmol/LFTMC RemisolCO2 [Moles/Vol]25 mmol/VRtrhae22 - 31 mmol/LFTMC Remisol Cobalamin (Vitamin B12) [Mass/Vol]211 pg/tBDhxqic42 - 1500 pg/mLFTMC Remisol Creatinine [Mass/Vol]0.9 mg/dLNormal0.5 - 1.3 mg/dLFTMC RemisolFerritin [Mass/Vol]38 ng/jFGmoxqh66 - 307 ng/mLFTMC RemisolFolate [Mass/Vol]13.5 ng/mL Normal>=6.7ng/mLFTMC RemisolGFR/1.73 sq M.predicted among non-blacks MDRD (S/P/Bld) [Vol rate/Area]85 mL/min/1.73 i6Iauhze>=59mL/min/1.73 m2[facility] Chem S Globulin (S) [Mass/Vol]3.3 g/dLNormal1.4 - 4.0 gm/dLFTMC RemisolGlucose [Mass/Vol]93 mg/oUXrmiyl36 - 199 mg/dLFTMC RemisolIron [Mass/Vol]56 ug/dLNormal 35 - 153 mcg/dLFTMC RemisolIron binding capacity [Mass/Vol]395 ug/dKTjhsmn924 - 400 mcg/dLFTMC RemisolPotassium [Moles/Vol]3.7 mmol/LNormal3.5 - 5.3 mmol/LFTMC RemisolProtein [Mass/Vol]7.8 g/dLNormal6.0 - 7.8 gm/dLFTMC RemisolSodium [Moles/Vol]138 mmol/RPpsyaz098 - 145 mmol/LFTMC RemisolTransferrin [Mass/Vol]282 mg/cHJframe851 - 370 mg/dLFTMC RemisolUrea nitrogen [Mass/Vol]11 mg/dLNormal5 - 21 mg/dLFTMC RemisolUrea nitrogen/Creatinine [Mass ratio]12 mg/xaSkwctd13 - 20 [facility] RemisolHEMATOLOGYOrdered By: SYSTEM SYSTEM on 23-60-1960Arfvitqtb/100 WBC (Bld)0.6 %Normal0.0 - 2.0 %[facility] HemeAutoSSBasophils/Leukocytes Auto (Bld) [Pure # fraction]0.0 E9/LNormal0.0 - 0.2 E9/LFTMC HemeAutoSSEosinophils/100 WBC (Bld) 1.1 %Normal0.0 - 8.0 %[facility] HemeAutoSSEosinophils/Leukocytes Auto (Bld) [Pure # fraction]0.1 E9/LNormal0.0 - 0.5 E9/LFTMC HemeAutoSSLymphocytes/100 WBC (Bld) 42.4 %Duzwob04.0 - 50.0 %[facility] HemeAutoSSLymphocytes/Leukocytes Auto (Bld) [Pure # fraction]3.4 E9/LNormal1.0 - 4.0 E9/LFTMC HemeAutoSSMonocytes/100 WBC (Bld)8.0 %Normal4.0 - 14.0 %[facility] HemeAutoSSMonocytes/Leukocytes Auto (Bld) [Pure # fraction]0.6 E9/LNormal0.2 - 1.0 E9/LFTMC HemeAutoSSNeutrophils/100 WBC (Bld) 47.9 %Xyxicy09.0 - 75.0 %[facility] HemeAutoSSNeutrophils/Leukocytes Auto (Bld) [Pure # fraction]3.8 E9/LNormal2.0 - 7.5 E9/LFTMC HemeAutoSSHEMATOLOGYOrdered By: Trena Castro on 61-01-9153Ckvimajjmit distribution width (RBC) [Ratio]14.5 % High10.9 - 14.2 %[facility] HemeAutoSSHematocrit (Bld) [Volume fraction]37.4 %Normal 34.0 - 46.0 %[facility] HemeAutoSSHemoglobin (Bld) [Mass/Vol]13.1 g/xDAzfohe29.0 - 16.0 gm/dLFTMC HemeAutoSSMCH (RBC) [Entitic mass]30.6 ltLnrglm56.0 - 34.0 pgFTMC HemeAutoSSMCHC (RBC) [Mass/Vol]34.9 g/cRLqyeub66.4 - 36.0 gm/dLFTMC HemeAutoSS MCV (RBC) [Entitic vol]87.7 sMNeorll51.0 - 100.0 fLFTMC HemeAutoSSPlatelet mean volume (Bld) [Entitic vol]8.2 fLNormal6.4 - 10.8 fLFTMC HemeAutoSSPlatelets (Bld) [#/Vol]334.0 E9/IFmjyoj815.0 - 500.0 E9/LFTMC HemeAutoSSRBC (Bld) [#/Vol] 4.3 E12/LNormal4.3 - 5.9 E12/LFTMC HemeAutoSSWBC corrected for nucl RBC Auto (Bld) [#/Vol]7.9 E9/LNormal4.0 - 11.0 E9/LFTMC HemeAutoSSCHEMISTRYOrdered By: SYSTEM SYSTEM on 41-17-0904Sjmf T4 [Mass/Vol]0.58 ng/dLNormal0.58 - 1.64 ng/dL [facility] RemisolTSH Qn3.10 m[IU]/LNormal0.34 - 5.60 mcIU/mLFTMC RemisolCHEMISTRY Ordered By: Valeri German on 21-37-3919IiR9c (Bld) [Mass fraction]5.9 %Normal <=5.9%[facility] ChemAutoSSCHEMISTRYOrdered By: SYSTEM SYSTEM on 47-17-9035Mvip T4 [Mass/Vol]0.71 ng/dLNormal0.58 - 1.64 ng/dLFTMC RemisolTSH Qn3.77 m[IU]/LNormal 0.34 - 5.60 mcIU/mLFTMC RemisolCBC AUTO DIFFon 39-51-7999FYLK #0.0 103/ulNormal 0.0-0.1The [facility] HospitalComment on above:Performed By: #### HIV12 #### [facility] [address] [address] [address] Edward GillBasophils/100 WBC (Bld)0.4 %Normal0.2-2.0[facility] Comment on above:Performed By: #### HIV12 #### [facility] [address] [address] [address] Edward Traore #0.1 103/ulNormal0.0-0.7The [facility] HospitalComment on above: Performed By: #### HIV12 #### [facility] [address] [address] [address] Edward Calhounosinophils/100 WBC (Bld)1.3 %Normal0.9-7.0[facility] Comment on above:Performed By: #### HIV12 #### [facility] [address] [address] [address] Edward Calhounrythrocyte distribution width (RBC) [Ratio]16.6 %Critically high 11.0-15.0The [facility] HospitalComment on above:Performed By: #### HIV12 #### [facility] [address] [address] [address] Edward GillHematocrit (Bld) [Volume fraction]30.2 %Critically low36.0-48.0 The [facility] HospitalComment on above:Performed By: #### HIV12 #### [facility] [address] [address] [address] Edward GillHemoglobin (Bld) [Mass/Vol]10.5 g/dLCritically low12.0-16.0The [facility] HospitalComment on above:Performed By: #### HIV12 #### [facility] [address] [place] [address] Dr. Edward Ray #0.04 10e3/ulCritically high0.00-0.03[facility] Comment on above:Performed By: #### HIV12 #### [facility] [address] [place] [address] Dr. Edward Ray %0.4 %Normal0.0-0.5The [facility] HospitalComment on above: Performed By: #### HIV12 #### [facility] [address] [place] [address] Dr. Edward Velásquez #3.1 103/ulNormal1.2-3.8The [facility] HospitalComment on above:Performed By: #### HIV12 #### [facility] [address] [place] [address] Dr. Edward Alvarezhocytes/100 WBC (Bld)34.2 %Gfeksc74.5-60.0Comment on above:Performed By: #### HIV12 #### [facility] [address] [place] [address] Dr. Edward SimmonsUAL DIFF REQNONormalThe [facility] HospitalComment on above: Performed By: #### HIV12 #### [facility] [address] [place] [address] Dr. Edward June (RBC) [Entitic mass]30.3 erNvypiz55.7-34.0The [facility] HospitalComment on above:Performed By: #### HIV12 #### [facility] [address] [place] [address] Dr. Edward June (RBC) [Mass/Vol]34.8 g/lANzuinb41.9-35.2The [facility] HospitalComment on above:Performed By: #### HIV12 #### [facility] [address] [place] [address] Dr. Edward Desai (RBC) [Entitic vol]87.0 eRHmjgum22.0-99.0The [facility] HospitalComment on above:Performed By: #### HIV12 #### [facility] [address] [place] [address] Dr. Edward Rosas #0.7 103/ulNormal0.3-0.8The [facility] HospitalComment on above:Performed By: #### HIV12 #### [facility] [address] [place] [address] Dr. Edward Ignacioocytes/100 WBC (Bld)7.5 %Normal1.7-12.0[facility] Comment on above:Performed By: #### HIV12 #### [facility] [address] [place] [address] Dr. Edward Guevara #5.0 103/ulNormal1.4-6.5The [facility] HospitalComment on above:Performed By: #### HIV12 #### [facility] [address] [place] [address] Dr. Ewdard Moralesutrophils/100 WBC (Bld)56.2 %Jlwdca70.0-75.0The [facility] HospitalComment on above:Performed By: #### HIV12 #### [facility] [address] [place] [address] Dr. Edward Serranolet mean volume (Bld) [Entitic vol]9.8 fLNormal9.5-13.5The [facility] HospitalComment on above:Performed By: #### HIV12 #### [facility] [address] [place] [address] Dr. Edward GillPLT238 103/yqYpltpq813-404Hra [facility] HospitalComment on above: Performed By: #### HIV12 #### [facility] [address] [place] [address] Dr. Edward GillRBC3.47 106/ulCritically low4.20-5.40The [facility] HospitalComment on above:Performed By: #### HIV12 #### [facility] [address] [place] [address] Dr. Edward GillWBC9.0 103/ulNormal4.0-11.0The [facility] HospitalComment on above: Performed By: #### HIV12 #### [facility] [address] [place] [address] Dr. Edward GillFETAL SCREENon 96-67-1083PTDBM SCREENNegativeClermont County HospitalComment on above:Performed By: #### FETSCRN #### [facility] [address] [place] [address] Dr. Edward GillDIRECT COOMBSon 05-72-3211NKXMDZ COOMBSNegKettering Health TroyComment on above:Performed By: #### DIRCMB #### [facility] [address] [place] [address] Dr. Edward GillPOINT OF CARE GLUCOSEon 45-89-3040Etfadaq [Mass/Vol]117 mg/dL Critically dhmr60-962Kuo [facility] HospitalComment on above:Performed By: #### POCGLUC ####[facility] [address] [place], [place] [address]Dr. Edward GillTYPE AND SCREENon 28-06-6629CWAP AND SCREENNegativeClermont County HospitalComment on above:Performed By: #### TNS #### [facility] [address] [place] [address] Dr. Edward GillCBC AUTO DIFFon [id number] #0.0 103/ulNormal0.0-0.1The [facility] HospitalComment on above:Performed By: #### HIV12 #### [facility] [address] [place] [address] Dr. Edward GillBasophils/100 WBC (Bld)0.2 %Normal0.2-2.0[facility] Comment on above:Performed By: #### HIV12 #### [facility] [address] [place] [address] Dr. Edward Traore #0.0 103/ulNormal0.0-0.7The [facility] HospitalComment on above: Performed By: #### HIV12 #### [facility] [address] [place] [address] Dr. Edward Calhounosinophils/100 WBC (Bld)0.5 %Critically low0.9-7.0The [facility] HospitalComment on above:Performed By: #### HIV12 #### [facility] [address] [place] [address] Dr. Edward Calhounrythrocyte distribution width (RBC) [Ratio]16.1 %Critically high 11.0-15.0The [facility] HospitalComment on above:Performed By: #### HIV12 #### [facility] [address] [place] [address] Dr. Edward GillHematocrit (Bld) [Volume fraction]32.1 %Critically low36.0-48.0 The [facility] HospitalComment on above:Performed By: #### HIV12 #### [facility] [address] [place] [address] Dr. Edward GillHemoglobin (Bld) [Mass/Vol]11.7 g/dLCritically low12.0-16.0The [facility] HospitalComment on above:Performed By: #### HIV12 #### [facility] [address] [place] [address] Dr. Edward Ray #0.04 10e3/ulCritically high0.00-0.03The [facility] Comment on above:Performed By: #### HIV12 #### [facility] [address] [place] [address] Dr. Edward Ray %0.5 %Normal0.0-0.5The [facility] HospitalComment on above: Performed By: #### HIV12 #### [facility] [address] [place] [address] Dr. Edward Velásquez #2.4 103/ulNormal1.2-3.8The [facility] HospitalComment on above:Performed By: #### HIV12 #### [facility] [address] [place] [address] Dr. Edward Ronmphocytes/100 WBC (Bld)27.2 %Sprtxq03.5-60.0The [facility] HospitalComment on above:Performed By: #### HIV12 #### [facility] [address] [place] [address] Dr. Edward SimmonsUAL DIFF REQNONormalThe [facility] HospitalComment on above: Performed By: #### HIV12 #### [facility] [address] [place] [address] Dr. Edward De Leon (RBC) [Entitic mass]30.0 qvMrhtrn29.7-34.0The [facility] HospitalComment on above:Performed By: #### HIV12 #### [facility] [address] [place] [address] Dr. Edward June (RBC) [Mass/Vol]36.4 g/dLCritically high29.9-35.2The [facility] HospitalComment on above:Performed By: #### HIV12 #### [facility] [address] [place] [address] Dr. Edward Desai (RBC) [Entitic vol]82.3 tPErkvkr90.0-99.0The [facility] HospitalComment on above:Performed By: #### HIV12 #### [facility] [address] [place] [address] Dr. Edward Rosas #0.7 103/ulNormal0.3-0.8The [facility] HospitalComment on above:Performed By: #### HIV12 #### [facility] [address] [place] [address] Dr. Edward Ignacioocytes/100 WBC (Bld)7.7 %Normal1.7-12.0[facility] Comment on above:Performed By: #### HIV12 #### [facility] [address] [place] [address] Dr. Yilan ChangNEUT #5.5 103/ulNormal1.4-6.5The [facility] HospitalComment on above:Performed By: #### HIV12 #### [facility] [address] [place] [address] Dr. Edward Moralesutrophils/100 WBC (Bld)63.9 %Cteoro11.0-75.0The [facility] HospitalComment on above:Performed By: #### HIV12 #### [facility] [address] [place] [address] Dr. Edward GillPlatelet mean volume (Bld) [Entitic vol]10.0 fLNormal9.5-13.5The [facility] HospitalComment on above:Performed By: #### HIV12 #### [facility] [address] [place] [address] Dr. Edward GillPLT274 103/vnIvbubq979-355Wnl [facility] HospitalComment on above: Performed By: #### HIV12 #### [facility] [address] [place] [address] Dr. Edward GillRBC3.90 106/ulCritically low4.20-5.40The [facility] HospitalComment on above:Performed By: #### HIV12 #### [facility] [address] [place] [address] Dr. Edward GillWBC8.7 103/ulNormal4.0-11.0The [facility] HospitalComment on above: Performed By: #### HIV12 #### [facility] [address] [place] [address] Dr. Edward GillCovid-19 PCR ([facility]VDBOSTON HOS[facility] FOR [facility]OM[facility])on 89-84-0096YMNA-CoV-2 (COVID-19) RNA LELO+probe Ql (Unsp spec)Not detectedNormalNOT DETECTEDThe [facility] Comment on above:Result Comment: When diagnostic [...] for this test is supported by the Stamp Analyst of Health and Human Service's declaration that [...] longer be used).Performed By: #### HIV12 #### [facility] [address] [address] [address] Edward GillDRUG SCREEN RAPID (URINE)on [id number]I Comment on above:Performed By: #### DRUGRPD ####[facility] [address] [address]Dr. Edward GillBAR NegativeNormalNEGATIVEEast [facility] HospitalComment on above:Performed By: #### DRUGRPD ####[facility] [address] [address]Dr. Edward GillBUPNegativeNormalNEGATIVEComment on above:Performed By: #### DRUGRPD ####[facility] [address] [address]Dr. Edward GillBZONegativeNormalNEGATIVEComment on above:Performed By: #### DRUGRPD ####[facility] [address] [address]Dr. Edward GillCOCNegative NormalNEGATIVEComment on above:Performed By: #### DRUGRPD ####[facility] [address] [place], [place] [address]Dr. Edward GillCUT-OFFSSEE BELOWClermont County HospitalComment on above:Result Comment: AMP (Amphetamine): 500ng/mL, BAR (Barbituates): 200 ng/mL, BZO (Benzodiazepines): 150 ng/mL, BUP (Buprenorphine): 10 ng/mL, INDIA (Cocaine): 150 ng/mL, mAMP (Methamphetamine): 500 ng/mL, MTD (Methadone): 200 ng/mL, OPI (Opiates): 100 ng/mL, OXY (Oxycodone): 100 ng/mL, PCP (Phencyclidine): 25 ng/mL, PPX (Propoxyphene): 300 ng/mL, THC (Cannabinoids): 50 ng/mL, TCA (Trycyclic Antidepressants): 300 ng/mLPerformed By: #### DRUGRPD ####[facility] [address] [place], [place] [address]Dr. Edward ChangDRUG CUT HEADERDRUG CLASS TEST SYSTEM CUT-OFF CONCENTRATIONS ARE FOLLOWS:NormalThe [facility] HospitalComment on above:Performed By: #### DRUGRPD ####[facility] [address] [place], [place] [address]Dr. Edward ChangmAMP NegativeNormalNEGATIVEEast [place] [facility] HospitalComment on above:Performed By: #### DRUGRPD ####[facility] [address] [place], [place] [address]Dr. Yilan ChangMTDNegativeNormalNEGATIVEEast [place] [facility] HospitalComment on above:Performed By: #### DRUGRPD ####[facility] [address] [place], [place] [address]Dr. Yilan ChangOPINegativeNormalNEGATIVEEast [place] [facility] HospitalComment on above:Performed By: #### DRUGRPD ####[facility] [address] [place], [place] [address]Dr. Yilan ChangOXYNegative NormalNEGATIVEEast [place] [facility] HospitalComment on above:Performed By: #### DRUGRPD ####[facility] [address] [place], [place] [address]Dr. Yilan ChangPCPNegativeNormalNEGATIVEEast [place] [facility] HospitalComment on above: Performed By: #### DRUGRPD ####[facility] [address] [place], [place] [address]Dr. Yilan ChangPPXNegativeNormalNEGATIVEEast [place] [facility] HospitalComment on above:Performed By: #### DRUGRPD ####[facility] [address] [id number]. Edward GillTCANegative NormalNEGATIVEComment on above:Performed By: #### DRUGRPD ####[facility] [address] [id number]. Edward GillTHCNegativeNormalNEGATIVEComment on above: Performed By: #### DRUGRPD ####[facility] [address] [id number]. Edward Sherwood PREG BIOPHY W NON STRESSon [id number] PREG BIOPHY W NON STRESSEXAMINATION: US PREG [...] by: HUMERA KIM Date: 2022-05-06 19:05[facility] PREG BIOPHY W NON STRESSon [id number] PREG BIOPHY W NON STRESSEXAMINATION: US PREG [...] Electronically authenticated by: ANGIE GALDAMEZ Date: 2022-05-01 16:16[facility] B STREP CULTUREon 04-23-2022. agalactiae Ag Ql (Unsp spec)Isolate 1 Streptococcus agalactiae Heavy growth of ORGANISM 1 Streptococcus agalactiae ANTIBIOTIC M.I.C RX STATUS Ampicillin <=0.25 S F Cefotaxime <=0.12 S F Ceftriaxone <=0.12 S F Clindamycin <=0.25 R F Erythromycin >=8 R F Inducible Clindamycin Resistance POS F Levofloxacin =0.5 S F Linezolid <=2 S F Tetracycline >=16 R F Vancomycin =0.5 S FNormalComment on above:Performed By: #### GBSCX ####[facility] [address] [place], [place] [address]Yv. Edward GillUS PREG BIOPHY W NON STRESSon [id number] PREG BIOPHY W NON STRESSEXAMINATION: US PREG [...] Electronically authenticated by: HUMERA KIM Date: 2022-04-17 17:[address] [place] [address] PREG GROWTHon [id number] PREG GROWTHEXAMINATION: US PREG GROWTH HISTORY: Gestational [...] Electronically authenticated by: HUMERA KIM Date: 2022-04-17 16:49[facility] PREG BIOPHY W NON STRESSon [id number] PREG BIOPHY W NON STRESSEXAMINATION: US PREG [...] Electronically authenticated by: HUMERA KIM Date: 2022-04-12 08:56[facility] HospitalGLUCOSE, BLOOD (POC)on [id number] [Mass/Vol]106 mg/dL Kjlsuwho11 - 99 mg/dLSt. Mary's Medical Center PREG BIOPHY W NON STRESSon [id number] PREG BIOPHY W NON STRESSEXAMINATION: US PREG [...] Electronically authenticated by: HUMERA KIM Date: 2022-04-01 16:08[facility] PREG BIOPHY W NON STRESSon [id number] PREG BIOPHY W NON STRESSEXAMINATION: US PREG [...] Electronically authenticated by: HUMERA KIM Date: 2022-03-27 08:54NoAvita Health System Galion HospitalUS PREG GROWTHon [id number] PREG GROWTHEXAMINATION: US PREG GROWTH HISTORY: Maternal [...] Electronically authenticated by: HUMERA KIM Date: 2022-03-17 06:04[facility]ermont County HospitalTSHon 24-37-6054UHP5.586 uIU/mLNormal0.358-3.740The [facility]opathic HospitalComment on above:Performed By: #### HIV12 #### [facility] [address] [place] [address] Dr. Edward GillTYPE AND SCREENon 32-95-8992GHPO AND SCREENNegativeClermont County HospitalComment on above:Performed By: #### TNS #### [facility] [address] [place] [address] Dr. Edward GillPAP ACOG PANEL 2: 30 to 65on 02-21-2022..NormalThe [facility]opathic HospitalComment on above:Result Comment: Performed at: WBPerformed By: #### [id number] ####[facility] [address] [place], [place] [address]DrLazara Koenig Gdln ACOG Zucjrsf01-94LzekyrYtfKettering Health Greene Memorial on above:Performed By: #### [id number] ####[facility] Xlvryzmuvj[address] [place], [place] [address]Dr. Edward GillDIAGNOSIS:CommentCleveland Clinic Hillcrest Hospital on above:Result Comment: NEGATIVE FOR INTRAEPITHELIAL LESION OR MALIGNANCY. Performed at: WBPerformed By: #### [id number] ####[facility] Siiqk[address] [place], [place] [address]Dr. Edward GillHPV AptimaNegativeNormal NegativeThe [facility] on above:Result Comment: This nucleic acid amplification test detects fourteen high-risk HPV types (16,18,31,33,35,39,45,51,52,56,58,59,66,68) without differentiation. Performed at: =GPerformed By: #### [id number] ####[facility] Ckarmatynr[address] [place], [place] [address]Dr. Edward GillMethodology:CommentCleveland Clinic Hillcrest Hospital on above:Result Comment: This liquid based ThinPrep(R) pap test was screened with the use of an image guided system. Performed at: WBPerformed By: #### [id number] ####[facility] Gfvfl[address] [place], [place] [address]Dr. Edward GillNote:CommentCleveland Clinic Hillcrest Hospital on above:Result Comment: The Pap smear is a screening test designed to aid in the detection of premalignant and malignant conditions of the uterine cervix. It is not a diagnostic procedure and should not be used as the sole means of detecting cervical cancer. Both false-positive and false-negative reports do occur. . Performed at: WBPerformed By: #### [id number] ####[facility] [address] [place], [place] [address]Dr. Edward ChangPerformed by:CommentCleveland Clinic Hillcrest Hospital on above:Result Comment: Zenaida Diop, Icer Air Conditioning (ASCP) Performed at: WBPerformed By: #### [id number] ####[facility] Oyaz[address] [place], [place] [address]Dr. Edward GillSpecimen adequacy:Comment NormalComment on above:Result Comment: Satisfactory for evaluation. No endocervical component is identified. Performed at: WBPerformed By: #### [id number] ####[facility] Ajsmwpemfe[address] [place], [place] [address]Dr. Edward GillCHLAMYDIA/GONOCOCCUS LELO (SWAB/URINE/PAPon 53-95-0237Yirswgrlw trachomatis, NAANegativeNormalNegativeComment on above:Performed By: #### CT/NGNA ####[facility] Fjseccomw[address] [place], [place] [address]Dr. Edward Gill Neisseria gonorrhoeae, NAANegativeNormalNegativeComment on above:Performed By: #### CT/NGNA ####[facility] Ezmfaeeflb[address] [place], [place] [address]Dr. Edward GillVAGINITIS/VAGINOSIS DNA PROBEon 06-04-9526Pxskoca speciesNegativeNormalNegativeComment on above:Performed By: #### VAGINT ####[facility] Kblbuvor[address] [place], [place] [address]Dr. Edward GillGardnerella vaginalisNegativeNormal NegativeThe [facility] HospitalComment on above:Performed By: #### VAGINT ####[facility] Kqat[address]mz[address] [place], [place] [address]Dr. Edward GillTrichomonas vaginalisNegativeNormalNegative Comment on above:Performed By: #### VAGINT ####[facility] Eblglqgnsr[address] [place], [place] [address]Dr. Edward GillTSHon 50-09-7841PQT9.536 uIU/mLNormal0.358-3.740The [facility] HospitalComment on above:Performed By: #### TSH ####[facility] [address] [place], [place] [address]Yg. Edward JairoGLUCOSE - 1HRon 99-24-4331Eitubia [Mass/Vol]160 mg/dLCritically high 74-106Comment on above:Performed By: #### GLU1HR ####[facility] [address] [id number] Edward SepulvedaHon 78-32-6569ITB5.899 uIU/mLNormal0.358-3.740 Comment on above:Performed By: #### HIV12 #### [facility] [address] [address] [address] Edward Garcia, [facility] 91-14-0327Ydgokvckog byUltBess Kaiser HospitalComment on above:Performed By: #### AAFPM #### [address] [address] Curriculum Supervisor: Pancho Cano MD [address] [address] Curriculum Supervisor: Yosvany ArriagaAultman HospitalComment on above:Result Comment: Results for Estimated Due Date: 05 13 22Performed By: #### AAFPM #### [address] [address] Curriculum Supervisor: Pancho Cano MD [facility] [address] [place] [address] Curriculum Supervisor: Danelle ArriagaMercy Health – The Jewish HospitalComment on above:Performed By: #### AAFPM #### [address] [address] Curriculum Supervisor: Pancho Cano MD [facility] [address] [place], [place] [address] Curriculum Supervisor: Zhang Bledsoe MDGestat Age (exact)15 wks, 2 daysNoLicking Memorial HospitalComment on above:Performed By: #### AAFPM #### [facility] [address] [place] [address] Curriculum Supervisor: Pancho Cano MD [address] [phone] Curriculum Supervisor: Zhang Bledsoe MDIns Req Matern DiabMercy Memorial HospitalComment on above:Performed By: #### AAFPM #### [facility] [address] [address] Curriculum Supervisor: Pancho Cano MD [address] [address] Curriculum Supervisor: Zhang Bledsoe MDInterpretationScreen [facility] Geneva Medical CenterComment on above:Result Comment: (NOTE) INTERPRETATION: SCREEN NEGATIVE for open spina bifida Neural Tube Defects (NTD) Negative Pre-Test Post-Test Cutoff Neural Tube Defects Risks 1:1030 1:2690 1:250 Comments: The risk of an open neural tube defect is less than the screening cut-off. This test was developed and its performance characteristics determined by [facility]. It has not been cleared or approved by the [place] Food and Drug Administration. This test was performed in a CLIA certified laboratory and is intended for clinical purposes.Performed By: #### AAFPM #### [facility] [address] [address] Curriculum Supervisor: Pancho Cano MD [address] [phone] Curriculum Supervisor: Osmar Arriagaternal Age at Del36.6 yrRegional Medical CenterComment on above:Performed By: #### AAFPM #### [facility] [address] [address] Curriculum Supervisor: Pancho Cano MD [address] [phone] Curriculum Supervisor: Osmar Arriagaanaheim general hospital RaceNonblackNoLicking Memorial HospitalComment on above:Performed By: #### AAFPM #### [facility] [address] [place] [address] Curriculum Supervisor: Pancho Cano MD [facility] [address] [place] [address] Curriculum Supervisor: Osmar Arriagaanaheim general hospital Wiklko340.0 lbs.NormalMercy Health Willard HospitalComment on above:Performed By: #### AAFPM #### [facility] [address] [place] [address] Curriculum Supervisor: Pancho Cano MD [facility] [address] [place] [address] Curriculum Supervisor: BAKARI Arriaga for AFP1.52NormCleveland Clinic Mentor HospitalComment on above:Performed By: #### AAFPM #### [facility] [address] [place] [address] Curriculum Supervisor: Pancho Cano MD [address] [address] Curriculum Supervisor: Zhang Bledsoe MDNumber of FetusesSingletonNoLicking Memorial HospitalComment on above:Performed By: #### AAFPM #### [facility] [address] [address] Curriculum Supervisor: Pancho Cano MD [facility] [address] [place] [address] Curriculum Supervisor: Smith Arriaga's AFP35 ng/mLNormalMercy Health Willard HospitalComment on above:Performed By: #### AAFPM #### [facility] [address] [place] [address] Curriculum Supervisor: Pancho Cano MD [facility] [address] [place] [address] Curriculum Supervisor: NIKITA ArriagaAshtabula County Medical Center Comment on above:Performed By: #### AAFPM #### [address] [address] Curriculum Supervisor: Pancho Cano MD [address] [phone] Curriculum Supervisor: Azucena ArriagaUniversity Hospitals Health SystemComment on above:Result Comment: (NOTE) Initial sample Performed by [facility], [address] [place] [phone] www.[facility], Yayo Moncada MD, PHD, Lab. DirectorPerformed By: #### AAFPM #### [address] [address] Curriculum Supervisor: Pancho Cano MD [address] [phone] Curriculum Supervisor: Zhang Bledsoe MDAKennedy Krieger Institute [id number] [place], [place] [address]Comment on above:Performed By: #### AAFPM #### [address] [address] Curriculum Supervisor: Pancho Cano MD [address] [phone] Curriculum Supervisor: SHIVA ArriagaRegional Medical Center Comment on above:Performed By: #### AAFPM #### [facility] [address] [address] Curriculum Supervisor: Pancho Cano MD [address] [phone] Curriculum Supervisor: Zhang Bledsoe [facility] Comment on above:Performed By: #### AAFPM #### [address] [address] Curriculum Supervisor: Pancho Cano MD [facility] [address] [place] [address] Curriculum Supervisor: SHIVA Arriagaonojeanine EggINFORMATION NOT PROVIDEDRegional Medical CenterComment on above:Performed By: #### AAFPM #### [facility] [address] [place] [address] Curriculum Supervisor: Pancho Cano MD [facility] [address] [place] [address] Curriculum Supervisor: Zhang Bledsoe MDEstimclearsky rehabilitation hospital of avondale Due [id number] Medical CenterComment on above:Performed By: #### AAFPM #### [facility] [address] [address] Curriculum Supervisor: Pancho Cano MD [facility] [address] [place] [address] Curriculum Supervisor: Zhang Bledsoe MDBrigham And Women'S [facility] HistoryNegativeRegional Medical CenterComment on above:Performed By: #### AAFPM #### [facility] [address] [place] [address] Curriculum Supervisor: Pancho Cano MD [facility] [address] [place] [address] Curriculum Supervisor: Zhang Bledsoe MDIn Vitro FertalizatINFORMATION NOT PROVIDEDDetwiler Memorial HospitalComment on above:Performed By: #### AAFPM #### [facility] [address] [place] [address] Curriculum Supervisor: Pancho Cano MD [facility] [address] [place] [address] Curriculum Supervisor: Zhang Bledsoe MDADVENTIST [facility] [id number] Medical CenterComment on above:Performed By: #### AAFPM #### [facility] [address] [place] [address] Curriculum Supervisor: Pancho Cano MD [facility] [address] [place] [address] Curriculum Supervisor: Zhang Bledsoe MDMaternal [id number] Medical CenterComment on above:Performed By: #### AAFPM #### [facility] [address] [place] [address] Curriculum Supervisor: Pancho Cano MD [facility] [address] [place] [address] Curriculum Supervisor: Osmar Arriagaternal Abylco133PzpnzaBjjkeRegional Medical CenterComment on above:Performed By: #### AAFPM #### [facility] [address] [place] [address] Curriculum Supervisor: Pancho Cano MD [facility] [address] [place] [address] Curriculum Supervisor: BAKARI Arriagaonochorionic TwinsShelby Memorial HospitalComment on above:Performed By: #### AAFPM #### [facility] [address] [place] [address] Curriculum Supervisor: Pancho Cano MD [facility] [address] [place] [address] Curriculum Supervisor: Zhang Bledsoe BRYAN WHITFIELD MEMORIAL HOSPITALatient Weight UnitsLBSRegional Medical CenterComment on above:Performed By: #### AAFPM #### [facility] [address] [place] [address] Curriculum Supervisor: Pancho Cano MD [facility] [address] [place] [address] Curriculum Supervisor: LUIS Arriagaace (Maternal)WHITERegional Medical CenterComment on above:Performed By: #### AAFPM #### [facility] [address] [place] [address] Curriculum Supervisor: Pancho Cano MD [facility] [address] [place] [address] Curriculum Supervisor: Jay Arriaga SpecimenINFORMATION NOT [facility] Medical CenterComment on above:Performed By: #### AAFPM #### [facility] [address] [place] [address] Curriculum Supervisor: Pancho Cano MD [facility] [address] [place] [address] Curriculum Supervisor: Zhang Bledsoe MDValproic/CarbamazepINFORMATION NOT [facility]ton Medical CenterComment on above:Performed By: #### AAFPM #### [facility] [address] [address] Curriculum Supervisor: Pancho Cano MD [facility] [address] [place] [address] Curriculum Supervisor: JIMENEZ Arriaga Single Marker Scrn, Maternal, Serumon 28-04-8291JcqXwpcvySouthwood Psychiatric HospitalCarrier Study Non-ProMedicaon 06-41-0444VupQmnybe[address] [place] [address] MISCELLANEOUS TESTINGon 65-86-7326Zvkh Out ReportFWD TO [facility] [address] [place], [place] [address]Test NameNATERA SENTARA NORTHERN VIRGINIA MEDICAL CENTERMiscellaneouson 15-22-0658Calu Out ReportFWD TO [facility] [address] [place], [place] [address]Comment on above:Performed By: #### CMIS #### [facility] [address] [place] [address] Curriculum Supervisor: Pancho Cano MDTest Fostoria City HospitalComment on above:Performed By: #### CMIS #### [facility] [address] [place] [address] Curriculum Supervisor: RAJ Choi B SURFACE ANTIGEN SCREENon 74-10-5546MKtRj ScreenNegativeNormalNegativeThe [facility] on above:Performed By: #### HIV12 #### [facility] [address] [place] [address] Dr. Edward FranklinPATITIS C VIRUS AB W/ REFLEX QUANTon 12-57-2041SSI AB<0.1Normal 0.0-0.9[facility] on above:Performed By: #### HCVPCRR ####[facility] [address] [address]DrLazara GillInterpretation:CommentNormalThe [facility] on above: Result Comment: Negative Not infected with HCV, unless recent infection is suspected or other evidence exists to indicate HCV infection.Performed By: #### HCVPCRR ####[facility] [address] [address]DrLazara GillHIV 1 AND 2 WITH REFLEXon 14-87-2363OZR Screen 4th Generation wRfx Non-ReactiveNormalNon ReactiveThe [facility] on above:Result Comment: HIV Negative HIV-1/HIV-2 antibodies and HIV-1 p24 antigen were NOT detected. There is no laboratory evidence of HIV infection.Performed By: #### HIV12 #### [facility] [address] [place] [address] Dr. Edward GillRPJeanine QUANTon 86-47-6691Fysto Plasma Reagin, QuantNon-Reactive NormalNonRea<1:1[facility] on above:Result Comment: Please Note: This test does not meet current guidelines for screening and diagnosis of syphilis. This test is intended for following treatment response in patients being treated for syphilis infection. To screen for syphilis infection, a reflex cascade that includes both RPR and a treponema-specific assay should be utilized, such as Treponema pallidum (Syphilis) Screening [place] (533434) or Rapid Plasma Reagin (RPR) Test With Reflex to Quantitative RPR and Confirmatory Treponema pallidum Antibodies (305509).Performed By: #### RPRQ ####[facility] [address] [address]Dr. Edward OspinaBELLA AB IGG on 17-91-7177Mkxdmbr Antibodies, IgG1.02 indexNormalImmune >0.99The [facility] HospitalComment on above:Result Comment: Non-immune <0.90 Equivocal 0.90 - 0.99 Immune >0.99Performed By: #### RUBIGG ####[facility] [address] [address]Dr. Edward AlfaroC AUTO DIFFon 72-50-1076CNKZ # 0.0 103/ulNormal0.0-0.1The [facility] HospitalComment on above:Performed By: #### HIV12 #### [facility] [address] [place] [address] Dr. Edward GillBasophils/100 WBC (Bld)0.3 %Normal0.2-2.0 Comment on above:Performed By: #### HIV12 #### [facility] [address] [place] [address] Dr. Edward Traore #0.1 103/ulNormal0.0-0.7The [facility] HospitalComment on above: Performed By: #### HIV12 #### [facility] [address] [place] [address] Dr. Edward Calhounosinophils/100 WBC (Bld)0.6 %Critically low0.9-7.0The [facility] HospitalComment on above:Performed By: #### HIV12 #### [facility] [address] [place] [address] Dr. Edward Calhounrythrocyte distribution width (RBC) [Ratio]14.1 %Rzxpmt90.0-15.0 The [facility] HospitalComment on above:Performed By: #### HIV12 #### [facility] [address] [place] [address] Dr. Edward GillHematocrit (Bld) [Volume fraction]36.2 %Dyhckh96.0-48.0The [facility] HospitalComment on above:Performed By: #### HIV12 #### [facility] [address] [place] [address] Dr. Edward GillHemoglobin (Bld) [Mass/Vol]12.5 g/qGAhskjz43.0-16.0The [facility] HospitalComment on above:Performed By: #### HIV12 #### [facility] [address] [place] [address] Dr. Edward Ray #0.05 10e3/ulCritically high0.00-0.03[facility] Comment on above:Performed By: #### HIV12 #### [facility] [address] [place] [address] Dr. Edward Ray %0.4 %Normal0.0-0.5The [facility] HospitalComment on above: Performed By: #### HIV12 #### [facility] [address] [place] [address] Dr. Edward Velásquez #2.7 103/ulNormal1.2-3.8The [facility] HospitalComment on above:Performed By: #### HIV12 #### [facility] [address] [place] [address] Dr. Edward Alvarezhocytes/100 WBC (Bld)23.2 %Nxhhjn65.5-60.0The [facility] HospitalComment on above:Performed By: #### HIV12 #### [facility] [address] [place] [address] Dr. Edward SimmonsUAL DIFF REQNONormalThe [facility] HospitalComment on above: Performed By: #### HIV12 #### [facility] [address] [place] [address] Dr. Edward June (RBC) [Entitic mass]30.6 nkLjuiwi84.7-34.0The [facility] HospitalComment on above:Performed By: #### HIV12 #### [facility] [address] [place] [address] Dr. Edward June (RBC) [Mass/Vol]34.5 g/mDIncekl16.9-35.2The [facility]ysh HospitalComment on above:Performed By: #### HIV12 #### [facility] [address] [address] [address] Edward JuneV (RBC) [Entitic vol]88.7 tVOqvynd77.0-99.0The [facility] HospitalComment on above:Performed By: #### HIV12 #### [facility] [address] [place] [address] Dr. Edward Rosas #0.7 103/ulNormal0.3-0.8The [facility] HospitalComment on above:Performed By: #### HIV12 #### [facility] [address] [place] [address] Dr. Edward Ignacioocytes/100 WBC (Bld)5.8 %Normal1.7-12.0[facility] Comment on above:Performed By: #### HIV12 #### [facility] [address] [place] [address] Dr. Edward Guevara #8.0 103/ulCritically high1.4-6.5[facility] Comment on above:Performed By: #### HIV12 #### [facility] [address] [place] [address] Dr. Edward Moralesutrophils/100 WBC (Bld)69.7 %Qpmjwr23.0-75.0The [facility] HospitalComment on above:Performed By: #### HIV12 #### [facility] [address] [place] [address] Dr. Edward Serranolet mean volume (Bld) [Entitic vol]9.3 fLCritically low 9.5-13.5ThDetwiler Memorial HospitalComment on above:Performed By: #### HIV12 #### [facility] [address] [place] [address] Dr. Edward GillPLT338 103/jxBavcjg767-417Cve [facility] HospitalComment on above: Performed By: #### HIV12 #### [facility] [address] [place] [address] Dr. Edward GillRBC4.08 106/ulCritically low4.20-5.40[facility] on above:Performed By: #### HIV12 #### [facility] [address] [address] [address] Edward SaulBC11.4 103/ulCritically high4.0-11.0The [facility] Hospitalment on above:Performed By: #### HIV12 #### [facility] [address] [place] [address] Dr. Edward GillCULTJEYSON URINEon 61-79-9122BONUAYG URINECulture Observations: LIGHT GROWTH OF MIXED GENITAL MARTHA. NO POTENTIAL PATHOGENS SEEN.NormalThe [facility] Marymount Hospitalment on above:Performed By: #### URCX #### [facility] [address] [place] [address] Dr. Edward GillGLYCOHEMOGLOBIN A1Con 06-16-9933ZZP RECOMMENDATIONSEE BELOWNormal The [facility] HospitalComhelen devos children[facility] on above:Result Comment: ADA RECOMMENDED LIMIT 4.0 - 6.0 ADA THERAPEUTIC TARGET < 7.0 ACTION SUGGESTED > 7.0Performed By: #### A1C #### [facility] [address] [place] [address] Dr. Edward GillGlucose [Mass/Vol]117 mg/dLNormalThe [facility] HospitalComhelen devos children's hospital on above:Performed By: #### A1C #### [facility] [address] [place] [address] Dr. Edward GillHbA1c (Bld) [Mass fraction]5.7 %Normal4.5-6.2[facility] on above:Performed By: #### A1C #### [facility] [address] [place] [address] Dr. Edward Nair BOX TEST PT SEND OUTon 80-98-7792KBYC TO REF LAB10/25/2021 NormalMem[facility] on above:Performed By: #### HIV12 #### [facility] [address] [place] [address] Dr. Edward GillTSHodru 69-86-9295BLQ5.700 uIU/mLNormal0.358-3.740The [facility]wood HospitalComment on above:Performed By: #### TSH ####[facility] [address] [address]DrPonce GillTYPE AND SCREEN on 36-51-7710JPBW AND SCREENNegativeC[facility] Clinic [facility] on above: Performed By: #### TNS ####[facility] [address] [address]Dr.Edward GillUS PREG TVon 52-47-8463YR PREG TV EXAMINATION: US PREG TV HISTORY: [...] BY US CRL: 6 weeks, 6 days LKAUDIA BY US CRL: 05/13/2022 IMPRESSION: 1. Single live intrauterine . Electronically authenticated by: HUMERA KIM Date: 2021-09-23 10:27[facility] HospitalPREG QUANT HCGon 10-89-0966LOF SLRNM5618 mIU/mLNormalComhelen devos children's hospital on above:Performed By: #### HIV12 #### [facility] [address] [address] [address] Edward GillHCG RANGESEE BELOWClermont County HospitalComment on above: Result Comment: 5-50 0-1 WEEK 40-300 1-2 WEEKS 100-1,000 2-3 WEEKS 500-6,000 3-4 WEEKS 5,000-200,000 1-2 MONTHS 10,000-100,000 2-3 MONTHS 3,000-50,000 2ND TRIMESTER 1,000-50,000 3RD TRIMESTERPerformed By: #### HIV12 #### [facility] [address] [address] [address] Edward GillCHEMISTRYOrdered By: SYSTEM SYSTEM on 04-78-5236Vikjp gap [Moles/Vol]15 mmol/LNormal6 - 16 mEq/LFTMC RemisolCalcium [Mass/Vol]9.5 mg/dL Normal8.9 - 11.1 mg/dLFT RemisolChloride [Moles/Vol]102 mmol/AZqhqcs603 - 111 mmol/LFTMC RemisolCO2 [Moles/Vol]22 mmol/AUkhess94 - 31 mmol/LFTMC Remisol Creatinine [Mass/Vol]0.9 mg/dLNormal0.5 - 1.3 mg/dLFT RemisolGFR/1.73 sq M.predicted among blacks MDRD (S/P/Bld) [Vol rate/Area]mL/min/1.73 p1Xynpoy >=59mL/min/1.73 m2[facility] [place] SGFR/1.73 sq M.predicted among non-blacks MDRD (S/P/Bld) [Vol rate/Area]mL/min/1.73 f5Weypcj>=59mL/min/1.73 m2[facility] [place] S Glucose [Mass/Vol]85 mg/eVAgeyhe13 - 199 mg/dLFT RemisolPotassium [Moles/Vol] 3.9 mmol/LNormal3.5 - 5.3 mmol/LFTMC RemisolSodium [Moles/Vol]135 mmol/LNormal 135 - 145 mmol/LFTMC RemisolUrea nitrogen [Mass/Vol]6 mg/dLNormal5 - 21 mg/dL [facility] [place] RemisolUrea nitrogen/Creatinine [Mass ratio]7 mg/mgLow10 - 20FT Remisol HEMATOLOGYOrdered By: SYSTEM SYSTEM on 33-51-5798Pkdxavdcv/100 WBC (Bld)0.5 % Normal0.0 - 2.0 %[facility] HemeAutoSSBasophils/Leukocytes Auto (Bld) [Pure # fraction]0.0 E9/LNormal0.0 - 0.2 E9/LFTMC HemeAutoSSEosinophils/100 WBC (Bld)0.6 %Normal0.0 - 8.0 %[facility] HemeAutoSSEosinophils/Leukocytes Auto (Bld) [Pure # fraction]0.1 E9/LNormal0.0 - 0.5 E9/LFTMC HemeAutoSSLymphocytes/100 WBC (Bld) 36.8 %Geaogj65.0 - 50.0 %[facility] HemeAutoSSLymphocytes/Leukocytes Auto (Bld) [Pure # fraction]2.9 E9/LNormal1.0 - 4.0 E9/LFTMC HemeAutoSSMonocytes/100 WBC (Bld)8.7 %Normal4.0 - 14.0 %[facility] HemeAutoSSMonocytes/Leukocytes Auto (Bld) [Pure # fraction]0.7 E9/LNormal0.2 - 1.0 E9/LFTMC HemeAutoSSNeutrophils/100 WBC (Bld) 53.4 %Rzneuz59.0 - 75.0 %[facility] HemeAutoSSNeutrophils/Leukocytes Auto (Bld) [Pure # fraction]4.2 E9/LNormal2.0 - 7.5 E9/LFTMC HemeAutoSSHEMATOLOGYOrdered By: Isha Yates on 85-94-3770Wqmbgoydigh distribution width (RBC) [Ratio]14.6 %High10.9 - 14.2 %[facility] HemeAutoSSHematocrit (Bld) [Volume fraction]36.4 %Normal 34.0 - 46.0 %[facility] HemeAutoSSHemoglobin (Bld) [Mass/Vol]12.6 g/hRJmxjud93.0 - 16.0 gm/dLFTMC HemeAutoSSMCH (RBC) [Entitic mass]29.9 wbWrmclv36.0 - 34.0 pgFTMC HemeAutoSSMCHC (RBC) [Mass/Vol]34.6 g/wEZmoutt42.4 - 36.0 gm/dLFTMC HemeAutoSS MCV (RBC) [Entitic vol]86.6 ySJlebci02.0 - 100.0 fLFTMC HemeAutoSSPlatelet mean volume (Bld) [Entitic vol]8.2 fLNormal6.4 - 10.8 fLFTMC HemeAutoSSPlatelets (Bld) [#/Vol]367.0 E9/YKvhtbd667.0 - 500.0 E9/LFTMC HemeAutoSSRBC (Bld) [#/Vol] 4.2 E12/LLow4.3 - 5.9 E12/LFTMC HemeAutoSSWBC corrected for nucl RBC Auto (Bld) [#/Vol]7.9 E9/LNormal4.0 - 11.0 E9/LFTMC HemeAutoSSPREG QUANT HCGon 08-29-2021 HCG KAGCX146 mIU/mLNormalComment on above:Performed By: #### PREGQNT ####[facility] [address] [address]Dr. Edward Lim [facility] HospitalComment on above:Result Comment: 5-50 0-1 WEEK 40-300 1-2 WEEKS 100-1,000 2-3 WEEKS 500- 6,000 3-4 WEEKS 5,000-200,000 1-2 MONTHS 10,000-100,000 2-3 MONTHS 3,000-50,000 2ND TRIMESTER 1,000-50,000 3RD TRIMESTERPerformed By: #### PREGQNT ####[facility] [address] [place], [place] [address]Dr. Edward GillPREWily QUANT HCGon 42-64-3551QPQ QUANT99 mIU/mLNThe Christ HospitalComment on above:Performed By: #### HIV12 #### [facility] [address] [address] [address] Edward Lim [facility] HospitalComhelen [facility] on above: Result Comment: 5-50 0-1 WEEK 40-300 1-2 WEEKS 100-1,000 2-3 WEEKS 500-6,000 3-4 WEEKS 5,000-200,000 1-2 MONTHS 10,000-100,000 2-3 MONTHS 3,000-50,000 2ND TRIMESTER 1,000-50,000 3RD TRIMESTERPerformed By: #### HIV12 #### [facility] [address] [address] [address] Edward Cross QUANT HCGon 85-91-5279OVG QUANT37 mIU/mLNThe Christ HospitalComhelen devos children's hospital on above:Performed By: #### PREGQNT ####[facility] [address] [place], [place] [address]Dr. Edward Lim RANGESEE BELOWNormalThe Piyush HospitalComment on above:Result Comment: 5-50 0-1 WEEK 40-300 1-2 WEEKS 100-1,000 2-3 WEEKS 500-6,000 3-4 WEEKS 5,000-200,000 1-2 MONTHS 10,000-100,000 2-3 MONTHS 3,000-50,000 2ND TRIMESTER 1,000-50,000 3RD TRIMESTERPerformed By: #### PREGQNT ####[facility] [address] [address]DrLazara Leon ChangCHEMISTRYOrdered By: SYSTEM SYSTEM on 37-16-4758Addodvo [Mass/Vol]4.5 g/dLNormal3.3 - 5.0 gm/dLFTMC Remisol Albumin/Globulin [Mass ratio]1.2 {ratio}Normal1.1 - 2.2FTMC RemisolALP [Catalytic activity/Vol]53 [iU]/fHyievn00 - 98 Int._Unit/LFTMC RemisolALT No additional P-5'-P [Catalytic activity/Vol]24 [iU]/dNormal6 - 46 Int._Unit/LFTMC RemisolAnion gap [Moles/Vol]13 mmol/LNormal6 - 16 mEq/LFTMC RemisolAST [Catalytic activity/Vol]20 [iU]/dNormal5 - 43 Int._Unit/LFTMC RemisolBilirubin [Mass/Vol]0.6 mg/dLNormal0.0 - 1.1 mg/dLFTMC RemisolCalcium [Mass/Vol]9.4 mg/dL Normal8.9 - 11.1 mg/dLFTMC RemisolChloride [Moles/Vol]97 mmol/QQjr974 - 111 mmol/LFTMC RemisolCO2 [Moles/Vol]24 mmol/BLasemn82 - 31 mmol/LFTMC Remisol Creatinine [Mass/Vol]0.8 mg/dLNormal0.5 - 1.3 mg/dLFTMC RemisolGFR/1.73 sq M.predicted among blacks MDRD (S/P/Bld) [Vol rate/Area]mL/min/1.73 t4Acfthe >=59mL/min/1.73 m2FT Chem SGFR/1.73 sq M.predicted among non-blacks MDRD (S/P/Bld) [Vol rate/Area]mL/min/1.73 m9Rgsguc>=59mL/min/1.73 m2[facility] [place] S Globulin (S) [Mass/Vol]3.7 g/dLNormal1.4 - 4.0 gm/dLFTMC RemisolGlucose [Mass/Vol]74 mg/wQSnjamy41 - 199 mg/dL[facility] [place] [facility] [place] RemisolMagnesium [Mass/Vol]2.0 mg/dL Normal1.3 - 2.4 mg/dLFTMC RemisolPotassium [Moles/Vol]3.5 mmol/LNormal3.5 - 5.3 mmol/LFTMC RemisolProtein [Mass/Vol]8.2 g/dLHigh6.0 - 7.8 gm/dLFT Remisol Sodium [Moles/Vol]130 mmol/KBxw556 - 145 mmol/LFTMC RemisolTSH Qn4.56 m[IU]/L Normal0.34 - 5.60 mcIU/mL[facility] [place] [place] RemisolUrea nitrogen [Mass/Vol]7 mg/dLNormal5 - 21 mg/dLFTMC RemisolUrea nitrogen/Creatinine [Mass ratio]9 mg/mgLow10 - 20FTMC RemisolHEMATOLOGYOrdered By: SYSTEM SYSTEM on 29-94-2699Slahsblva/100 WBC (Bld) 0.3 %Normal0.0 - 2.0 %[facility] HemeAutoSSBasophils/Leukocytes Auto (Bld) [Pure # fraction]0.0 E9/LNormal0.0 - 0.2 E9/LFTMC HemeAutoSSEosinophils/100 WBC (Bld)0.5 %Normal0.0 - 8.0 %[facility] HemeAutoSSEosinophils/Leukocytes Auto (Bld) [Pure # fraction]0.0 E9/LNormal0.0 - 0.5 E9/LFTMC HemeAutoSSLymphocytes/100 WBC (Bld) 35.9 %Zcvjoj73.0 - 50.0 %[facility] HemeAutoSSLymphocytes/Leukocytes Auto (Bld) [Pure # fraction]3.2 E9/LNormal1.0 - 4.0 E9/LFTMC HemeAutoSSMonocytes/100 WBC (Bld)8.8 %Normal4.0 - 14.0 %[facility] HemeAutoSSMonocytes/Leukocytes Auto (Bld) [Pure # fraction]0.8 E9/LNormal0.2 - 1.0 E9/LFTMC HemeAutoSSNeutrophils/100 WBC (Bld) 54.5 %Fweqln72.0 - 75.0 %[facility] HemeAutoSSNeutrophils/Leukocytes Auto (Bld) [Pure # fraction]4.8 E9/LNormal2.0 - 7.5 E9/LFTMC HemeAutoSSHEMATOLOGYOrdered By: Trena Castro on 37-25-5039Isfcjqgqmfi distribution width (RBC) [Ratio]14.1 % Uxvhwg66.9 - 14.2 %[facility] HemeAutoSSHematocrit (Bld) [Volume fraction]38.5 %Normal 34.0 - 46.0 %[facility] HemeAutoSSHemoglobin (Bld) [Mass/Vol]13.1 g/kXMryxxm99.0 - 16.0 gm/dLFTMC HemeAutoSSMCH (RBC) [Entitic mass]29.4 zsXhjphb14.0 - 34.0 pgFTMC HemeAutoSSMCHC (RBC) [Mass/Vol]34.1 g/hIQbxbqz52.4 - 36.0 gm/dLFTMC HemeAutoSS MCV (RBC) [Entitic vol]86.0 qDFzcyhb68.0 - 100.0 fLFTMC HemeAutoSSPlatelet mean volume (Bld) [Entitic vol]8.3 fLNormal6.4 - 10.8 fLFTMC HemeAutoSSPlatelets (Bld) [#/Vol]334.0 E9/PEqqnqg762.0 - 500.0 E9/LFTMC HemeAutoSSRBC (Bld) [#/Vol] 4.5 E12/LNormal4.3 - 5.9 E12/LFTMC HemeAutoSSWBC corrected for nucl RBC Auto (Bld) [#/Vol]8.9 E9/LNormal4.0 - 11.0 E9/LFTMC HemeAutoSSOB/TECHNOLOGY EDUCATION TEACHER - Office Visiton [phone]/TECHNOLOGY EDUCATION TEACHER - Office VisitChief ComplaintComplains of: heavy bleeding Declines advanced practice nurse psychotherapist, Rukhsanacecily Salomon, ROSE History of Present IllnessSanna is [...] stroke 07/2017 PSH as above POB- 2007 [id number] 17week loss subchorionic h vntjkywzw0761 39weeks bleeding at 5weeks for 2 weeks diet 1756-5987 calories exercise none 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 Review [...] History History of Oral Surgery Tooth Extraction Edmonson Tooth Family History No pertinent family history Family history of cerebrovascular accident (CVA) (V17.1) (Z82.3) Family history of diabetes mellitus (V18.0) (Z83.3) Family history of cerebrovascular accident (CVA) (V17.1) (Z82.3) Family history of cerebrovascular accident (CVA) (V17.1) (Z82.3) Allergies No Known Drug Allergies Recorded By: Susie Salomon; 11/08/2017 4:19:42 PM Current Meds Ciprofloxacin HCl - 500 MG Oral Tablet;Ther apy: 03Ncq6647 to Recorded Dispense: 0 Days ; #: Sufficient Tablet; Refill: 0; BUBBA = N; Record; Last Updated By: Susie Salomon; 11/08/2017 4:19:42 PM Plavix 75 MG Oral Tablet;Therapy: 35Xln3554 to Recorded Dispense: 0 Days ; #: Sufficient Tablet; Refill: 0; BUBBA = N; Record; Last Updated By: Susie Salomon; 11/08/2017 4:19:42 PM Provera 10 MG Oral Tablet;Therapy: 87Yht6245 to Recorded Dispense: 0 Days ; #: Sufficient Tablet; Refill: 0; BUBBA = N; Record; Last Updated By: Susie Salomon; 11/08/2017 4:19:42 PM Vitals Vital Signs Recorded: 83Cuj5519 04:59EQAtzrtfvj686Prxdjknxc65Mltbam1 ft 6 btIbgpaq421 lb BMI Wwsowuobro12.57BSA Calculated1.7HWL09Cdw2962Aybi Scale6-7 Physical ExamConstitutional: Alert and in no acute distress. Well developed, well nourished. Head and Face: Head and face: Normal. Psychiatric: Alert and oriented x 3. Affect normal to patient baseline. Mood: Appropriate. Diagnoses/Problems Anemia (285.9) (D64.9) Asthma (493.90) (J45.909) Depression with anxiety (300.4) (F41.8) History of Oral Surgery Tooth Extraction Edmonson Tooth No pertinent family history : Mother [...] GIDeclines STI testing todayWeight gain, offered a auto damage appraiser consult and she declined. Encouraged exercise. Signatures Electronically signed by : RICAHRD Ulrich; Nov 12 2017 8:46PM EST (Author)NormalUH TouchworksAntiphospholipid Abs IgG/IgMon 27-77-5146Dapgktgepbppibhh Ab-OvH293 GPLCritically high0-14Centennial Peaks HospitalComment on above:Result Comment: INTERPRETIVE INFORMATION: High- Specificity Antiphospholipid Antibody,IgG14 GPL or less......Fhncupnq60 26 GPL.........Indeterminate Suggest repeat testing in 12 weeks27 GPL or greater. ..PositiveHigh-specificity antiphospholipid IgG and IgM antibodies are directedagainsta mixture of phosphatidylserine, phosphatidic acid, and beta- 2glycoprotein 1antigens. These antibodies are more specific than cardiolipin IgG andIgMantibodies in the diagnosis of antiphospholipid syndrome (APS). Antiphospholipid Ab-IgM6 MPLNormal096 [address] StreetComment on above:Result Comment: INTERPRETIVE INFORMATION: High-Specificity Antiphospholipid Antibody,IgM14 MPL or less......Rgtwqsje74 37 MPL.........Indeterminate Suggest repeat testing in 12 weeks38 MPL or greater. ..PositiveHigh-specificity antiphospholipid IgG and IgM antibodies are directedagainsta mixture of phosphatidylserine, phosphatidic acid, and beta- 2glycoprotein 1antigens. These antibodies are more specific than cardiolipin IgG andIgMantibodies in the diagnosis of antiphospholipid syndrome (APS).Performed by Ah[facility],[address] [place] [address],[place] [address] cta.VSE EVAKUATORY ROSSII, Zhang Bledsoe MD - Lab. [facility] Miscellaneous test 1on 05-28-2017 Miscellaneous Test 1SEE NOTEOrthoColorado Hospital at St. Anthony Medical CampusComment on [...] Additional information and recommendations for testingmay befound [email or web address]/AutoimmuneDz/ConnectiveTissueDz/i ndex.html.Performed by Ahonya,[address] [facility] [place] [address] stb.VSE EVAKUATORY ROSSII,Zhang Bledsoe MD - Lab. DirectorCardiolipin Antibodies, IgA, IgG, IgMon 94-37-3783Pgpsgzvbvgx Ab IgA0 APLNormal0-11Centennial Peaks HospitalComment on above:Result Comment: INTERPRETIVE INFORMATION: Cardiolipin Antibodies, IgA0-11 APL: Tyjahbpp48-26 APL: In ijfuunecndn56-50 APL: Low to Moderately Jfbxnpme79 APL or above: High PositivePerformed by Ahonya,[address] [place] [address] pqt.VSE EVAKUATORY ROSSIIZhang MD - Lab. DirectorCardiolipin Ab IgG 111 GPLCritically high0-14Cent[facility] Peaks HospitalComment on above:Result Comment: INTERPRETIVE INFORMATION: Anti-Cardiolipin IgG Ab0-14 GPL: Dwtfbvsa48- 19 GPL: Qlbkyjvraekmg85-39 GPL: Low to Moderately Ussxagzy30 GPL or above: High PositiveThe persistent presence [...] other criteria phospholipid antibody tests.Cardiolipin Ab IgM10 MPLNormal0-12Centennial Peaks HospitalComment on above:Result Comment: INTERPRETIVE INFORMATION: Anti-Cardiolipin IgM0-12 MPL: Tatigveq53-29 MPL: Dwrzsuovqzrgb17-79 MPL: Low to Moderately Sslchotb95 MPL or above: High PositiveThe persistent presence [...] and/orothercriteria phospholipid antibody tests.Jennifer-Simpson Virus by PCRon 12-80-5669Tcoimfl Simpson Virus by PCRNot DetectedNoAnimas Surgical HospitalComment on above:Result Comment: NOT DETECTED - A negative result does not rule out thepresence of PCR inhibitors inthe patient specimen or assayspecific nucleic acid in concentrations below the level ofdetection bythe assay.INTERPRETIVE INFORMATION: Jennifer Simpson Virus by PCRTest developed and characteristics determined by [facility]. SeeCompliance Statement A: VSE EVAKUATORY ROSSII/CSPerformed by Ahonya,[address] [place] [address] rvu.VSE EVAKUATORY ROSSII, Zhang Bledsoe MD - Lab. DirectorEpstein Simpson Virus SourceCSFOrthoColorado Hospital at St. Anthony Medical CampusOligoclonal Band Profileon 68-86-7880Hnfidvs3479 mg/uDHfqfjg3621-6015NvuysCentennial Peaks HospitalAlbumin 5.2 ratioNormal0.0-9.0Centennial Peaks HospitalAlbumin, CSF20 mg/dLNormal 0-35Cent[facility] Peaks HospitalCSF IgG Synthesis Rate<0.0Normal<=8.0Cent[facility] Peaks HospitalCSF Oligoclonal BandsNegativeNormalNegativeCentennial Peaks HospitalCSF Oligoclonal Bands Number0 BandsNormal0-1MCedar Springs Behavioral HospitalGlobulin1060 mg/uEOcdzyb516-5214WpqycCentennial Peaks Hospital Comment on above:Result Comment: REFERENCE INTERVAL: Immunoglobulin GAccess complete set of age- and/or gender-specific reference intervalsforthis test in the [employer] Test Directory (VSE EVAKUATORY ROSSII).IgG Index0.45 ratioNormal 0.28-0.66Centennial Peaks HospitalImmunoglobulin G CSF2.5 mg/dLNormal0.0-6.0 [facility]aks HospitalINR Coag RelTime (Bld)0.12 {INR}Normal0.09-0.25 [facility] Peaks HospitalInterpretationSee NoteNoAnimas Surgical HospitalComment on above:Result Comment: Isoelectric focusing/immunofixation reveals no oligoclonal bands ineitherthe CSF orthe serum. This is considered to be a negative result foroligoclonal bands. Approximately 5 percentof patients with clinicallydefinitive multiple sclerosis will have a negative result.Performed by Ahonya,[address] [place] [address] uxq.VSE EVAKUATORY ROSSII, Zhang Bledsoe MD - Lab.DirectorMyelin Basic Protein, CSFon 43-02-4098Tvjrue Basic Protein1.82 ng/mLNormal0.00-5.50Cent[facility] Peaks HospitalComment on above:Result Comment: INTERPRETIVE INFORMATION: Myelin Basic ProteinTest developed and characteristics determined by Ahony[facility]. SeeCompliance Statement D: VSE EVAKUATORY ROSSII/CSPerformed by Ahonya,[address] [place] [address] jee.VSE EVAKUATORY ROSSII, Zhang Bledsoe MD - Lab. [facility] Miscellaneous test 1on 76-15-1283Qyfsylh Prompt 85546CdbpllYtgyhOrthoColorado Hospital at St. Anthony Medical CampusComment on above:Result Comment: Corrected result; [place] [id number] on 05/25/2017 at 13:14 by V/AUT MTBeyond Compliance Miscellaneous test 1on 95-69-4880Yoqipmo Fawfwf98109IkduixDqiieOrthoColorado Hospital at St. Anthony Medical CampusComment on above:Result Comment: DS DNACSF Cell Counton 05-25-2017 CSF no diffsee [facility] HealthComment on above:Result Comment: Differential not performed -Total Nucleated cellsCSF AppearanceClear NormalCentennial Peaks HospitalCSF ColorColorlessOrthoColorado Hospital at St. Anthony Medical CampusCSF Tube NumberTube 4Or[facility]. [facility] Medical CampusFluid Clot Evaluationsee belowOrthoColorado Hospital at St. Anthony Medical CampusComment on above:Result Comment: No Clots SeenTotal Nucleated Cells0 K/uLNormal0-8Centennial Peaks HospitalTotal Red Blood Cells0 K/uLOrthoColorado Hospital at St. Anthony Medical CampusCSF Glucose on 88-71-2568TOI Yjmpspw82 mg/gTJvwuqe59-72OamhyCentennial Peaks HospitalCSF Proteinon 39-18-0283MNT Hskxetn27 mg/kWPiumbp52-61ArsyrCentennial Peaks Hospital Creatine Kinaseon 70-65-7150Cdrpbppx kinase (CK)71 U/LNormal0-170Centennial Peaks HospitalCulture, CSFon 91-40-4116Wuljuvm, CSFORDER#: [id number] ORDERED BY: VERNA MONGE: CSF (Spinal Fluid) CSF COLLECTED: 05/25/17 13:25ANTIBIOTICS AT AMARILYS.: RECEIVED : 05/25/17 13:25Gram Stain Direct FINAL 05/25/17 15:30 No WBC's, No organisms seenCulture, CSF FINAL 05/28/17 09:04 No growth at 72 hours [facility] Medical CampusFL LUMBAR PUNCTURE DIAGon 12-72-5494HT LUMBAR PUNCTURE DIAGFL LUMBAR PUNCTURE DIAG : [...] LUMBAR PUNCTURE.Interpreted by:NIKITA Mezaigned by:Humera Covarrubias MD05/25/17inal resultNormalCentennial Peaks Hospital Homocysteineon 01-13-5612Sqfeuqvvkuii7.1 umol/LNormal0.0-15.0Centennial Peaks HospitalPartial Thromboplastin Timeon 85-15-1189fUWA88.7 nSqtuzp53.6-35.4 [facility] Peaks HospitalComment on above:Result Comment: Heparin Therapeutic Range: 38.8 - 54.6 seconds.Prothrombin Timeon 68-05-3364KHE Coag RelTime (PPP)1.0 {INR}[facility] St. [facility] Medical CampusComment on above:Result Comment: Recommended INR therapeutic ranges [...] secProthrombin time (PT) Coag time (PPP) 10.7 sNormal8.1-13.7[facility] Vital Signs Date TimeVital SignValuePerforming KtxwnagqxXluqhpdc85-03-4784 09:26-0400Body mass index (BMI) [Ratio]33.98 kg/t0Dkjyh Saiguo DO Work Phone: [facility] HospitalErtnbtgdop20-10-7516 09:26-0400Body .48 kgCorey Montez DO Work Phone: [facility] HospitalBcgkmesaej78-80-3684 09:26-0400Diastolic blood bcjkksac18 mm[Hg][employer] Work Phone: [facility] HospitalXzfxtqthsg36-68-3400 09:26-0400Systolic blood qidaymgv692 mm[Hg][employer] Work Phone: [facility] HospitalVsvffrgaah97-18-8008 13:44-0400Body hljoin677.6 cmApreet Callahan MD MPH Work Phone: [phone]10-20-2025 13:44-0400Body mass index (BMI) [Ratio]33.73 kg/l2TqwlsSam Callahan MD MPH Work Phone: [phone] [place], [place] [address]10-20-2025 13:44-0400Body biiajs71.8 kgSam Callahan MD MPH Work Phone: [facility]10-20-2025 13:44-0400Diastolic blood pmizpsmo51 mm[Hg]Sam Callahan MD MPH Work Phone: [facility]10-20-2025 13:44-0400Heart rate 79 /minSam Callahan MD MPH Work Phone: [phone])585-[address] [place], [place] [address]10-20-2025 13:44-0400 Respiratory rate18 /minSam Callahan MD MPH Work Phone: [facility]10-20-2025 13:44-0400Systolic blood mm[Hg]Sam Callahan MD MPH Work Phone: [facility]10-13-2025 10:45-0400Body mass index (BMI) [Ratio]34.12 kg/x3Wjiuh Montez DO Work Phone: [phone] [place], [place] [address]Ivomsqfzep24-18-3078 10:45-0400Body ikezyq97.89 kgCorey Montez DO Work Phone: [phone] [place] [address]-13-2025 10:45-0400Diastolic blood tftuomtb81 mm[Hg]Wilton Montez DO Work Phone: [phone] [place], [place] [address]Ewwgwvuoki38-72-7907 10:45-0400Systolic blood oysohmgc067 mm[Hg]Wilton Montez DO Work Phone: [phone] [place], [place] [address]Gpnmeszuab34-21-3808 09:30-0400Body mass index (BMI) [Ratio]34.14 kg/p8Zwgzq Montez DO Work Phone: [phone] [place], [place] [address]Oyxozsymtp90-48-2860 09:30-0400Body mcehng73.94 kgCorey Montez DO Work Phone: [phone] [place], [place] [address]Defwbbrmzt13-76-8372 09:30-0400Diastolic blood mm[Hg]Wilton Montez DO Work Phone: [phone] [place], [place] [address]Fxmbskoafk04-23-2265 09:30-0400Systolic blood judmobuy088 mm[Hg]Wilton Montez DO Work Phone: [phone] [place] [address]-08-2025 15:14-0400Body mass index (BMI) [Ratio]33.73 kg/j4Cnlmr Montez DO Work Phone: [address] [place] [address]Iwiomrpvpn92-47-1373 15:14-0400Body vhivuv03.8 kg Wilton Montez DO Work Phone: [facility] HospitalRtpdqphhev55-11-4532 15:14-0400Diastolic blood pmfeckse74 mm[Hg]Wilton Herrmann DO Work Phone: noMissouri Southern HealthcareUwgtotikcy48-61-8293 15:14-0400Systolic blood mm[Hg]Wilton Herrmann DO Work Phone: noMissouri Southern HealthcareOdgzmzyuun06-59-9922 14:22-0400Body mass index (BMI) [Ratio]33.89 kg/s2LqwvfhiaMukul Noyola MD Work Phone: [phone]09-04-2025 14:22-0400Body kgwcky38.25 kgMukul Noyola MD Work Phone: [phone] [place], [place] 2408709-04-2025 14:22-0400Diastolic blood wsynrbaw90 mm[Hg]Mukul Noyola MD Work Phone: [phone] [place], [place] 2408709-04-2025 14:22-0400Systolic blood yafflczk823 mm[Hg]Mukul Noyola MD Work Phone: [phone] [place], [place] 240[address]708-26-2025 11:34-0400Body jqascd162.7 cmKatherine Negrete APRN.TANK TESTER Work Phone: [facility]08-26-2025 11:34-0400Body mass index (BMI) [Ratio]33.57 kg/h8MdvxjKatherine Negrete APRN.TANK TESTER Work Phone: [facility]08-26-2025 11:34-0400Body temperature 97.59 [degF]Katherine Negrete BARRATTE OPERATOR.TANK TESTER Work Phone: [facility]08-26-2025 11:34-0400Body eaijyk03.4 kgKatherine Negrete APRN.TANK TESTER Work Phone: [facility]08-26-2025 11:34-0400Diastolic blood bormispn52 mm[Hg]Katherine Negrete BARRATTE OPERATOR.TANK TESTER Work Phone: [facility]08-26-2025 11:34-0400Heart rate80 /min Katherine Negrete APRN.TANK TESTER Work Phone: [facility]08-26-2025 11:34-0400Respiratory rate 16 /minKatherine Negrete APRN.TANK TESTER Work Phone: [facility]08-26-2025 11:34-4736MuN3% (BldA) [Mass fraction]98 %Katherine Negrete APRN.TANK TESTER Work Phone: [facility]08-26-2025 11:34-0400Systolic blood pkwxqaim996 mm[Hg]Katherine Negrete BARRATTE OPERATOR.TANK TESTER Work Phone: [facility]08-14-2025 09:28-0400Body mass index (BMI) [Ratio]33.41 kg/h8Payhp Montez DO Work Phone: [facility] HospitalWzpqypzytp71-27-7621 09:28-0400Body innspl27.89 kgCorey Montez DO Work Phone: [place] [id number] 09:28-0400Diastolic blood genxwjzk38 mm[Hg]Wilton Montez DO Work Phone: [place] [id number] 09:28-0400Systolic blood mm[Hg]Wilton Montez DO Work Phone: [facility] HospitalEbctgvvzag35-73-8400 10:53-0400Body mass index (BMI) [Ratio]33.57 kg/t3Ziqvt Montez DO Work Phone: [facility] HospitalTfqvfevqcd84-07-2426 10:53-0400Body gaajpp58.35 kgCorey Montez DO Work Phone: [facility] HospitalViegpscrdq90-28-9237 10:53-0400Diastolic blood ggauhove16 mm[Hg]Wilton Montez DO Work Phone: [facility] HospitalRhwzukfakf67-60-3995 10:53-0400Systolic blood tzigdnol470 mm[Hg]Wilton Montez DO Work Phone: [place] [id number] 13:07-0400Body mass index (BMI) [Ratio]33.73 kg/l8UsssisLorena Enciso RN Work Phone: 1(741)697-[address] [place], [place] 0305307-23-2025 13:07-0400Body epaniz04.8 kgLorena Enciso RN Work Phone: 1(741)526-[address] [place], [place] 0305307-03-2025 09:32-0400Body mass index (BMI) [Ratio]33.81 kg/y3Sosxz Montez DO Work Phone: [facility] HospitalUapxokfqgs41-27-0442 09:32-0400Body autnia86.03 kgCorey Montez DO Work Phone: 1(492)093-[address] [place], [place] [address]Lqqpktpkxk87-80-9141 09:32-0400Diastolic blood brfgzvli22 mm[Hg]Wilton Montez DO Work Phone: [facility] HospitalVskohdainp30-23-1005 09:32-0400Systolic blood vxbvitac565 mm[Hg]Wilton Montez DO Work Phone: [phone] [place], [place] [address]Oeckwuqasw16-56-1098 14:23-0400Body mass index (BMI) [Ratio]33.46 kg/u2UwfefKatherine Negrete APRN.TANK TESTER Work Phone: [facility]07-01-2025 14:23-0400Body temperature 97 [degF]Katherine Negrete APRN.TANK TESTER Work Phone: [facility]07-01-2025 14:23-0400Body genkrw84.1 kgKatherine Negrete APRN.TANK TESTER Work Phone: [facility]07-01-2025 14:23-0400Diastolic blood aascvpaj98 mm[Hg]Katherine Negrete APRN.TANK TESTER Work Phone: [facility]07-01-2025 14:23-0400Heart rate82 /min Katherine Negrete APRN.TANK TESTER Work Phone: [facility]07-01-2025 14:23-0400Respiratory rate 16 /minKatherine Negrete APRN.TANK TESTER Work Phone: [facility]07-01-2025 14:23-4532AlL7% (BldA) [Mass fraction]100 %Katherine Negrete APRN.TANK TESTER Work Phone: [facility]07-01-2025 14:23-0400Systolic blood mm[Hg]Katherine Negrete APRN.TANK TESTER Work Phone: [facility]06-05-2025 14:10-0400Body mass index (BMI) [Ratio]33.89 kg/m2[facility]06-05-2025 14:10-0400Body ohhlhh88.25 kgSaint [facility]20[facility] 14:10-0400Diastolic blood engrefkb27 mm[Hg][facility]06-05-2025 14:10-0400Systolic blood vtzokleg339 mm[Hg][facility]03-27-2025 12:07-0400Body mass index (BMI) [Ratio]34.44 kg/m5Vlbhv Montez DO Work Phone: [facility] HospitalPktbpirsug73-03-2067 12:07-0400Body zytpki16.8 kg Wilton Montez DO Work Phone: [facility] HospitalUibwrqddjn42-32-1695 12:07-0400Diastolic blood mm[Hg]Wilton Montez DO Work Phone: [facility] HospitalSsoqnegtkd18-69-8994 12:07-0400Systolic blood cykwsnme047 mm[Hg]Wilton Montez DO Work Phone: [facility] HospitalDvdiubrzkj16-03-8974 08:27-0500Blood Pressure LocationScott KAPLE [phone]-AvysgFirelands [facility]03-03-2025 08:27-0500Diastolic blood qqynuppr54 mm[Hg]Penelope KAPLE 080-1385Wnubaf-CylcxFirelands [facility]03-03-2025 08:27-0500Heart rate77 /minScott KAPLE 290-4253Gvasyf-NkwcmFirelands [facility]03-03-2025 08:27-1776QqN9% (BldA) [Mass fraction]99 %Penelope CASAS [phone]-SlqflFirelands [facility]03-03-2025 08:27-0500Systolic blood wjpxoyzg891 mm[Hg]Penelope CASAS 608-4764Dhucpr-SxkdrFirelands [facility]02-24-2025 15:21-0500Body mass index (BMI) [Ratio]34.93 kg/x8Kqxmq Montez DO Work Phone: [facility] HospitalPnggetmrfl33-76-4206 15:21-0500Body tcdoll24.16 kgCorey Montez DO Work Phone: [facility] HospitalOfwmdixojo20-11-9747 15:21-0500Diastolic blood iiafkypb62 mm[Hg]Wilton Montez DO Work Phone: [facility] HospitalEteflifiei72-37-9062 15:21-0500Systolic blood yndbebol301 mm[Hg]Wilton Montez DO Work Phone: [facility] HospitalMzxiulcxtx40-61-2159 16:14-0500Blood Pressure LocationJESSICA BACA 302-2115Dyxrcz-HbokxSouthwest [facility] 06-19-2024 16:14-0500Diastolic blood yknntuws71 mm[Hg]JESSICA BACA [phone]-JkjamSouthwest General Health Center 06-19-2024 16:14-0500Heart rate74 /minBARRONCLYN KEVEN 494-2888Wsdgux-PvmwtSouthwest General Health Center 06-19-2024 16:14-1888LzL0% (BldA) [Mass fraction]100 %JESSICA BACA [phone]-WtpcbSouthwest General Health Center 06-19-2024 16:14-0500Systolic blood rukehhql218 mm[Hg]JESSICA BACA 304-2215Qieddf-HjwszK[facility] 06-09-2024 13:55-0500Blood Pressure LocationScott KAPLE 326-6843Wwtgni-JnsphFirelands [facility]02-10-2025 13:55-0500Diastolic blood eumwqcca79 mm[Hg]Penelope KAPLE 838-8430Qfhkaw-ZqcqsFirelands [facility]02-10-2025 13:55-0500Heart rate78 /minScott KAPLE 913-5466Plhlav-FafxdFirelands [facility]02-10-2025 13:55-8312RpI3% (BldA) [Mass fraction]99 %Penelope KAPLE [phone]-ZrhapFirelands [facility]02-10-2025 13:55-0500Systolic blood tiisfpjy768 mm[Hg]Penelope STYLESLE 050-0810Jlemmk-RwfqfFirelands Regional Medical [facility]02-03-2025 11:43-0500Body mass index (BMI) [Ratio]34.51 kg/p9Amipj Montez DO Work Phone: [facility] HospitalArcvtsvzko88-38-4600 11:43-0500Body .98 kgCorey Montez DO Work Phone: [facility] HospitalErkfddfhaa57-21-8815 11:43-0500Diastolic blood kvxteiem65 mm[Hg]Wilton Montez DO Work Phone: [facility] HospitalQvzwgfefmj13-34-8988 11:43-0500Systolic blood erlipmmt598 mm[Hg]Wilton Montez DO Work Phone: [facility] HospitalLjnxgmciad12-72-9451 13:07-0500Body gzvapr044.7 cmVramos Calix MD Work Phone: [facility]01-29-2025 13:07-0500Body mass index (BMI) [Ratio]35.02 kg/v3IwtcaKristofer Calix MD Work Phone: [facility]01-29-2025 13:07-0500Body temperature 97.59 [degF]Kristofer Calix MD Work Phone: [facility]01-29-2025 13:07-0500Body jbpjat32.5 kgKristofer Calix MD Work Phone: [facility]01-29-2025 13:07-0500Diastolic blood xgqmekgc46 mm[Hg]Kristofer Calix MD Work Phone: [facility]01-29-2025 13:07-0500Heart rate72 /min Kristofer Calix MD Work Phone: [facility]01-29-2025 13:07-0500Respiratory rate 16 /minKristofer Calix MD Work Phone: [facility]01-29-2025 13:07-5818GeW5% (BldA) [Mass fraction]99 %Kristofer Calix MD Work Phone: [facility]01-29-2025 13:07-0500Systolic blood lmazewmq648 mm[Hg]Kristofer Calix MD Work Phone: [facility]01-07-2025 14:40-0500Body mass index (BMI) [Ratio]35.41 kg/j5Mcfyv Montez DO Work Phone: [facility] HospitalUseuwzibbc64-25-3215 14:40-0500Body mvnfbo63.52 kgCorey Montez DO Work Phone: [facility] HospitalWdnmmwsxha11-78-4655 14:40-0500Diastolic blood vtlselsl05 mm[Hg]Wilton Montez DO Work Phone: [facility] HospitalKmftknlwgz76-27-5924 14:40-0500Systolic blood mm[Hg]Wilton Montez DO Work Phone: [facility] HospitalMqaukkuliq14-27-9791 10:57-0500Body mass index (BMI) [Ratio]35.85 kg/m2[facility]12-06-2024 10:57-0500Body lkunxh264.75 kgNoSaint [facility]'s [facility]10-08-2024 13:29-0400Blood Pressure LocationScott KAPLE 105-5036Xrnaop-Dpvhu[address] [place], [place] 9026310-08-2024 13:29-0400Body yornrnakxmb32.06 [degF]Penelope CASAS 324-5625Ehofke-Dzlhw[address] [place], [place] 9026310-08-2024 13:29-0400Diastolic blood tijnjzko60 mm[Hg]Penelope STYLESLE 515-7328Oelnin-Qwivw[address] [place], [place] 9026310-08-2024 13:29-0400Heart rate76 /minScott KAPBEN 786-7716Yjrppn-Puhgb[address] [place], [place] 9026310-08-2024 13:29-0400Respiratory rate16 /minScott KAPBEN 334-6606Gnzrgx-Oitek[address] [place], [place] 9026310-08-2024 13:29-7634KmK8% (BldA) [Mass fraction]99 %Penelope CASAS [phone]-Wxrwj[address] [place], [place] 9026310-08-2024 13:29-0400Systolic blood uigsyhsm382 mm[Hg]Penelope CASAS 583-2923Wcguxi-Cygsu[address] [place], [place] 9026310-05-2024 14:39-0400Blood Pressure LocationPreeti Gudimella [phone]-Rylop[address] [place], [place] 1369610-05-2024 14:39-0400Body xqtqkgfyipe09.06 [degF]Anni Gudimella 103-6644Zsegnt-Vhikh[address] [place], [place] 1369610-05-2024 14:39-0400Diastolic blood qzbycmus22 mm[Hg]Anni Gudimella 684-6276Lshphk-WutgiKnox [facility] Hospital10-05-2024 14:39-0400Heart rate98 /minPreeti Gudimella 781-6886Mbhsij-Ljbox[address] [place], [place] 1369610-05-2024 14:39-7672RbN9% (BldA) [Mass fraction]99 %Anni Gudimella 932-1558Ulmhaa-GntveKettering Health [facility]ble [facility] Wdzv37-99-4469 14:39-0400Systolic blood bzsamidz849 mm[Hg]Anni Gudimella 002-6628Dwqjag-GreukKettering Health [facility] Oirb54-81-5767 13:45-0400Body qiicod379.7 cmVramos Calix MD Work Phone: [facility]09-04-2024 13:45-0400Body mass index (BMI) [Ratio]36.52 kg/g4DipdmKristofer Calix MD Work Phone: [facility]09-04-2024 13:45-0400Body temperature 97.11 [degF]Kristofer Calix MD Work Phone: [facility]09-04-2024 13:45-0400Body .7 kgKristofer Calix MD Work Phone: [facility]09-04-2024 13:45-0400Diastolic blood dcponnkb54 mm[Hg]Kristofer Calix MD Work Phone: [facility]09-04-2024 13:45-0400Heart rate91 /min Kristofer Calix MD Work Phone: [facility]09-04-2024 13:45-0400Respiratory rate 16 /minKristofer Calix MD Work Phone: [facility]09-04-2024 13:45-4543PmQ3% (BldA) [Mass fraction]100 %Kristofer Calix MD Work Phone: [facility]09-04-2024 13:45-0400Systolic blood mm[Hg]Kristofer Calix MD Work Phone: [facility]08-01-2024 13:40-0400Body temperature 97.7 [degF]Chair Cantonment Work Phone: [facility]08-01-2024 13:40-0400Diastolic blood mm[Hg]Chair Stew Work Phone: [facility]08-01-2024 13:40-0400Heart rate75 /min Chair Cantonment Work Phone: [facility]08-01-2024 13:40-0400Respiratory rate 16 /minChair Cantonment Work Phone: [facility]08-01-2024 13:40-6865SwO3% (BldA) [Mass fraction]99 %Chair Cantonment Work Phone: [facility]08-01-2024 13:40-0400Systolic blood tsucqqdi462 mm[Hg]Chair Cantonment Work Phone: [facility]07-25-2024 14:00-0400Body temperature 98.2 [degF]Chair Cantonment Work Phone: [facility]07-25-2024 14:00-0400Diastolic blood dsnwakwj48 mm[Hg]Chair Stew Work Phone: [facility]07-25-2024 14:00-0400Heart rate79 /min Chair Cantonment Work Phone: [facility]07-25-2024 14:00-0400Respiratory rate 16 /minChair Cantonment Work Phone: [facility]07-25-2024 14:00-5307JmR3% (BldA) [Mass fraction]99 %Chair Cantonment Work Phone: [facility]07-25-2024 14:00-0400Systolic blood zawlnmuf642 mm[Hg]Chair Stew Work Phone: [facility]07-18-2024 14:08-0400Diastolic blood njhmobup82 mm[Hg]Chair Stew Work Phone: [facility]07-18-2024 14:08-0400Heart rate85 /min Chair Stew Work Phone: [facility]07-18-2024 14:08-0400Respiratory rate 18 /minChair Stew Work Phone: [facility]07-18-2024 14:08-4221PsH8% (BldA) [Mass fraction]96 %Chair Stew Work Phone: [facility]07-18-2024 14:08-0400Systolic blood mm[Hg]Chair Stew Work Phone: [facility]07-12-2024 14:44-0400Blood Pressure LocationMonica Saba [phone]-Yxzta[address] [place], [place] 9026307-12-2024 14:44-0400Body joqvuixwoaq12.34 [degF]Monica Saba 976-5270Kyoyuh-Qayhb[address] [place], [place] 9026307-12-2024 14:44-0400Diastolic blood dgxwingd08 mm[Hg]Monica Saba 996-0906Ovvdfm-Amvth[address] [place], [place] 9026307-12-2024 14:44-0400Heart rate85 /Jennifer Saba 330-3504Abwife-Jebjd[address] [place], [place] 9026307-12-2024 14:44-0400Respiratory rate16 /Jennifer Saba 195-9391Twymkk-Zctcr[address] [place], [place] 9026307-12-2024 14:44-9464KwL0% (BldA) [Mass fraction]99 %Monica Saba 107-7907Nrkmkb-Deezn[address] [place], [place] 9026307-12-2024 14:44-0400Systolic blood vhvxaywp212 mm[Hg]Monica Saba 685-0963Aekhzt-Pmaax[address] [place], [place] 9026306-25-2024 16:48-0400Blood Pressure LocationLourdes Garber 092-8063Ajexdq-Agkgc[address] [place], [place] 9026306-25-2024 16:48-0400Body azogjfscnss63.52 [degF]Lourdes Garber 808-3012Dametu-Jmvnv[address] [place], [place] 9026306-25-2024 16:48-0400Diastolic blood ayelrbbt25 mm[Hg]Lourdes Garber 322-8677Wlbdrr-Lvdli[address] [place], [place] 9026306-25-2024 16:48-0400Heart rate86 /minLourdes Garber 405-7864Lzupfi-Vncby[address] [place], [place] 9026306-25-2024 16:48-5170MlA0% (BldA) [Mass fraction]99 %Lourdes Garber 757-7065Yrkfno-Bmmco[address] [place], [place] 9026306-25-2024 16:48-0400Systolic blood asnsnawp647 mm[Hg]Lourdes Garber 758-0337Autgwb-Alrsy[address] [place], [place] 9026305-31-2024 21:17-0400Body cknwlhagyje37.06 [degF]Benny Uribe [address]05-31-2024 21:17-0400 Diastolic blood zmzpizia53 mm[Hg]Benny Uribe [address] [place], [place] 1706005-31-2024 21:17-0400Heart rate67 /minBenny Uribe [address] [place], [place] 1706005-31-2024 21:17-0400Mean blood ilifppxc99 mm[Hg]Benny Uribe [address] [place], [place] 1706005-31-2024 21:17-4860UpS0% (BldA) [Mass fraction]95 %Benny Uribe [address] [place], [place] 1706005-31-2024 21:17-0400 Systolic blood gzumnowo333 mm[Hg]Benny Uribe [address] [place], [place] 2721705-31-2024 20:00-0400 Diastolic blood iqmbppvm44 mm[Hg]Benny Uribe [address] [place], [place] 2721705-31-2024 20:00-0400Heart rate78 /minBenny Uribe [address] [place], [place] 2721705-31-2024 20:00-0400Mean blood oqbbotcd34 mm[Hg]Benny Uribe [address] [place], [place] 2721705-31-2024 20:00-0400 Respiratory rate20 /minBenny Uribe [address] [place], [place] 2721705-31-2024 20:00-0400 Systolic blood fcagscfo740 mm[Hg]Benny Uribe [address] [place], [place] 2721705-31-2024 19:30-0400 Diastolic blood rmoutvrg10 mm[Hg]Benny Uribe [address] [place], [place] 2721705-31-2024 19:30-0400Heart rate80 /minBenny Uribe [address] [place], [place] 2721705-31-2024 19:30-0400Mean blood mm[Hg]Benny Uribe [address] [place], [place] 2721705-31-2024 19:30-0400 Respiratory rate18 /minBenny Uribe [address] [place], [place] 2721705-31-2024 19:30-6788VgD2% (BldA) [Mass fraction]100 %Benny Uribe [address] [place], [place] 2721705-31-2024 19:30-0400 Systolic blood kfvjgylc501 mm[Hg]Benny Uribe [address] [place], [place] 2721705-31-2024 19:00-0400 Respiratory rate17 /minBenny Uribe [address] [place], [place] 2721705-31-2024 18:32-0400Body cgygolegcoe88.42 [degF][facility]05-31-2024 18:32-0400Heart rate69 /minAntonderik [facility]05-31-2024 17:46-0400 Diastolic blood mm[Hg]JANET DUNHAM 969-6875Ywehrs-Xjdrp[address] [place] [address] [facility] Rqbe69-11-6838 17:46-0400Mean blood zefzcntv140 mm[Hg]TROUTDALE DUNHAM 608-7291Dttggt-Tgwik[address] [place] [address] [facility] Raex58-58-6454 17:46-0400Systolic blood mm[Hg][facility] 291-5580Dajphb-Ldowm[address] [place] [address] [facility] Tkhw57-24-4142 17:40-0400Blood Pressure LocationFRANCJNOEL DUNHAM 663-4483Ifxlrn-Ttigo[address] [place] [address] [facility] Ixpo21-50-2941 17:40-0400Body gnvkfmfsocv96.88 [degF][facility] 316-1608Owzllf-Ssekn[address] [place] [address] [facility] Ccnt96-76-8094 17:40-0400Diastolic blood pkifoapb24 mm[Hg][facility] 275-9869Kqwntr-Gtyjo[address] [place] [address] [facility] Pnlt51-46-2161 17:40-0400Heart rate79 /minFRPRITESH DUNHAM 741-0239Iarqsp-Cediy[address] [place] [address] [facility] Aidd22-12-6276 17:40-7193YrL7% (BldA) [Mass fraction]97 %TROUTDALE DUNHAM 053-1066Lapxnl-Idijm[address] [place] [address] [facility] Bkcg93-56-3752 17:40-0400Systolic blood zjkespgu152 mm[Hg]JANET DUNHAM 255-4854Ipcmie-Clyzi[address] [place] [address] [facility] Xduv10-32-4041 11:42-0400Blood Pressure LocationScott KAPLE 681-0337Kjbiyl-TkfpgFirelands [facility]04-05-2024 11:42-0400Body hdyagyqsbsz25.06 [degF]Penelope CASAS 503-8767Csmjog-NsojhFirelands [facility]04-05-2024 11:42-0400Diastolic blood qvhpgixc39 mm[Hg]Penelope CASAS 885-7596Ohwrhy-QvyqxFirelands [facility]04-05-2024 11:42-0400Heart rate72 /minScott KAPLE 996-8289Umbcvl-IedanFirelands Regional [facility]04-05-2024 11:42-0400Respiratory rate16 /minScott KAPLE 473-0174Titvow-PirhlFirelands Regional [facility]04-05-2024 11:42-1148YtM7% (BldA) [Mass fraction]99 %Penelope CASAS 687-1386Oxqbhm-CibruFirelands Regional Medical [facility]04-05-2024 11:42-0400Systolic blood jgmtxyty913 mm[Hg]Penelope CASAS 859-6892Gwlywq-JhwmjFirelands Regional [facility]02-16-2024 14:05-0500Body cyyhvp173.7 Jerry Calix MD Work Phone: [facility]02-16-2024 14:05-0500Body temperature 97.39 [degF]Kristofer Calix MD Work Phone: [facility]02-16-2024 14:05-0500Body bgpinv882.1 kgKristofer Calix MD Work Phone: [place] [address]-16-2024 14:05-0500Diastolic blood vwrxinti47 mm[Hg]Kristofer Calix MD Work Phone: [facility]02-16-2024 14:05-0500Heart rate87 /min Kristofer Calix MD Work Phone: [place] [address]-16-2024 14:05-0500Respiratory rate 16 /minKristofer Calix MD Work Phone: [facility]02-16-2024 14:05-7763NfH7% (BldA) [Mass fraction]95 %Kristofer Calix MD Work Phone: [facility]02-16-2024 14:05-0500Systolic blood tsixeoal275 mm[Hg]Kristofer Calix MD Work Phone: [facility]01-26-2024 11:11-0500Blood Pressure LocationScott KAPLE [address] [place], [place] 2435001-26-2024 11:11-0500Body mweiqtvvbzr17.7 [degF]Penelope KAPLE [address] [place], [place] 2435001-26-2024 11:11-0500Diastolic blood ndwiqtkh19 mm[Hg]Penelope KAPLE 676-5122Yrzpbe-Izahu[address]01-26-2024 11:11-0500Heart rate76 /minScott KAPLE 115-6422Ygwkjv-Gweoq[address] [place], [place] 9026301-26-2024 11:11-0500Respiratory rate18 /minScott KAPLE [address] [place], [place] 2435001-26-2024 11:11-0391HiD6% (BldA) [Mass fraction]98 %Penelope KAPLE [address] [place], [place] 2435001-26-2024 11:11-0500Systolic blood gzhbacbl873 mm[Hg]Penelope KAPLE 774-6578Wjglyq-Voqym[address]10-19-2023 09:41-0400Blood Pressure LocationScott KAPLE 574-4967Juwequ-Pssaa[address] [place], [place] 9026310-19-2023 09:41-0400Body epirlkmlekm81.42 [degF]Penelope KAPLE 679-6559Hxvsgu-Dppjh[address] [place], [place] 9026310-19-2023 09:41-0400Diastolic blood mm[Hg]Penelope PRAVEEN 666-3668Rjmiqj-Qarwa[address] [place], [place] 9026310-19-2023 09:41-0400Heart rate80 /minScott KAPLE 375-7329Pmiurv-Wnmfq[address] [place], [place] 9026310-19-2023 09:41-0400Respiratory rate18 /minScott KAPLE 142-5144Nsginu-Sqffl[address] [place], [place] 9026310-19-2023 09:41-2685KjQ0% (BldA) [Mass fraction]98 %Penelope STEPHANIBEN 884-2358Sbolvg-Sodln[address]10-19-2023 09:41-0400Systolic blood vpwehakc479 mm[Hg]Penelope PRAVEEN 262-0457Npsnoq-Oagho[address]06-23-2023 09:44-0400Blood Pressure LocationScott STEPHANILE [address] [place], [place] 2435006-23-2023 09:44-0400Body lsmtemvtczd80.24 [degF]Penelope PRAVEEN [address] [place], [place] 2435006-23-2023 09:44-0400Diastolic blood wicogpge22 mm[Hg]Penelope CASAS 488-0183Hfudvc-Udtds[address]06-23-2023 09:44-0400Heart rate88 /minScott STEPHANILE 209-3626Bwxktq-Sipbv[address] [place], [place] 9026306-23-2023 09:44-0400Respiratory rate18 /minScott KAPLE 401-3216Oaskgq-Tvrgh[address] [place], [place] 9026306-23-2023 09:44-9957CvH2% (BldA) [Mass fraction]98 %Penelope CASAS 902-4981Duyrsq-Fvgyp[address] [place], [place] 9026306-23-2023 09:44-0400Systolic blood tzvyiylt624 mm[Hg]Penelope CASAS 146-5161Ingxru-TpkeqFirelands Regional [facility]03-30-2023 13:18-0400Body xpislv610.7 cmVramos Calix MD Work Phone: [facility]03-30-2023 13:18-0400Body temperature 97.5 [degF]Kristofer Calix MD Work Phone: [facility]03-30-2023 13:18-0400Body bbslet950.78 kgKristofer Calix MD Work Phone: [facility]03-30-2023 13:18-0400Diastolic blood jrnswojm00 mm[Hg]Kristofer Calix MD Work Phone: [facility]03-30-2023 13:18-0400Heart rate76 /min Kristofer Calix MD Work Phone: [facility]03-30-2023 13:18-0400Respiratory rate 16 /minKristofer Calix MD Work Phone: [facility]03-30-2023 13:18-6490OgB6% (BldA) [Mass fraction]97 %Kristofer Calix MD Work Phone: [facility]03-30-2023 13:18-0400Systolic blood mm[Hg]Kristofer Calix MD Work Phone: [facility]12-22-2022 13:45-0500Body temperature 98.71 [degF]Chair Stew Work Phone: [facility]12-22-2022 13:45-0500Diastolic blood mm[Hg]Chair Stew Work Phone: [facility]12-22-2022 13:45-0500Heart rate85 /min Chair Stew Work Phone: [place] [address]-22-2022 13:45-3335JsY0% (BldA) [Mass fraction]97 %Chair Stew Work Phone: [facility]12-22-2022 13:45-0500Systolic blood eocecbam767 mm[Hg]Chair [place]onment Work Phone: [facility]12-07-2022 16:27-0500Diastolic blood cukcdflq95 mm[Hg]Chair [place] Work Phone: [phone] [address]-07-2022 16:27-0500Heart rate84 /min Chair Stew Work Phone: [place] [address]-07-2022 16:27-0500Respiratory rate 18 /minChair Stew Work Phone: [place] [address]-07-2022 16:27-9758VfA3% (BldA) [Mass fraction]96 %Chair Stew Work Phone: [facility]12-07-2022 16:27-0500Systolic blood cjpydhcf929 mm[Hg]Chair Stew Work Phone: [facility]11-28-2022 14:20-0500Body .7 cmVramos Calix MD Work Phone: [facility]11-28-2022 14:20-0500Body temperature 97.39 [degF]Kristofer Calix MD Work Phone: [place] [address]-28-2022 14:20-0500Body oofshm780.23 kgKristofer Calix MD Work Phone: [place] [address]-28-2022 14:20-0500Diastolic blood aeaogkxv17 mm[Hg]Kristofer Calix MD Work Phone: [place] [address]-28-2022 14:20-0500Heart mxlu878 /minKristofer Calix MD Work Phone: [place] [address]-28-2022 14:20-0500Respiratory rate 16 /minKristofer Calix MD Work Phone: [facility]11-28-2022 14:20-2440JuZ6% (BldA) [Mass fraction]97 %Kristofer Calix MD Work Phone: [facility]11-28-2022 14:20-0500Systolic blood ubhniura472 mm[Hg]Kristofer Calix MD Work Phone: [facility]10-03-2022 11:46-0400Body tmmsuc861.7 cmVramos Calix MD Work Phone: [facility]10-03-2022 11:46-0400Body temperature 97.2 [degF]Kristofer Calix MD Work Phone: [facility]10-03-2022 11:46-0400Body .42 kgKristofer Calix MD Work Phone: [facility]10-03-2022 11:46-0400Diastolic blood goroaepq35 mm[Hg]Kristofer Calix MD Work Phone: [facility]10-03-2022 11:46-0400Heart rate88 /min Kristofer Calix MD Work Phone: [facility]10-03-2022 11:46-0400Respiratory rate 16 /minKristofer Calix MD Work Phone: [facility]10-03-2022 11:46-8004HsD8% (BldA) [Mass fraction]99 %Kristofer Calix MD Work Phone: [facility]10-03-2022 11:46-0400Systolic blood vmetqssv024 mm[Hg]Kristofer Calix MD Work Phone: [facility]04-22-2022 10:46-0400Blood Pressure [facility] [phone]-[facility]sp[facility] 04-22-2022 10:46-0400Diastolic blood mm[Hg] PERNELL SIDELL [phone]-UyaquSouthwest General Health Center 04-22-2022 10:46-0400Heart rate96 /minDERIK SIDELL [phone]-WjtjoSouthwest General Health Center 04-22-2022 10:46-8852XjC0% (BldA) [Mass fraction]99 % PERNELL SIDELL [phone]-WoemaSouthwest General Health Center 04-22-2022 10:46-0400Systolic blood bjqxuuaj952 mm[Hg] PERNELL SIDELL [phone]-CobbcSouthwest General Health Center Encounters Encounter DateEncounter TypeCare ProviderFacilityStart: 03-11-2025 End: 97-35-0277sjprgaprcnWRAPERUniversity Hospitals Elyria Medical Centertart: 03-11-2025 End: 44-67-7741Kytybh outpatient visit 25 minutesSana Palma MD Work Phone: [phone]-Hgfim [facility] at [facility] Comment on above:Gestational diabetes mellitus (GDM) in second trimester controlled on oral hypoglycemic drug (Primary Dx); Antiphospholipid syndromeStart: 03-10-2025 End: 42-84-4850Onqfgl flowsheetCorey Montez DO Work Phone: [facility] [place] [facility]BGYNStart: 03-10-2025 End: 19-81-5437Bynxpv flowsheetCorey Montez DO Work Phone: NOAU [place] [facility]BGYNStart: 03-10-2025 End: 68-20-2779emeoaittckJKHLJ FAZIONot AvailableStart: 03-06-2025 End: 13-63-2759Rsobkfyte Result EncounterCorey Montez DO Work Phone: noms External Department UnsolicitedStart: 03-06-2025 End: 93-40-4267Kqcydoarj Result EncounterCorey Montez DO Work Phone: noms External Department UnsolicitedStart: 03-02-2025 End: 93-89-5670aberpoudzrCUEAB MARTINEZFacility:[facility] Campustart: 02-27-2025 End: 33-15-3436Smzaqffuy Result EncounterCorey Montez DO Work Phone: noms External Department UnsolicitedStart: 02-27-2025 End: 28-17-3493Npxtdlqlf Result EncounterCorey Montez DO Work Phone: noms External Department UnsolicitedStart: 02-23-2025 End: 97-89-3089Sjizjh flowsheetCorey Montez DO Work Phone: NOHF [place] [facility]BGYNStart: 02-23-2025 End: 64-95-3894Wzamji flowsheetCorey Montez DO Work Phone: noms [facility] OBGYNStart: 02-23-2025 End: 63-05-2663thnveokatyKWVBU FAZIONot AvailableStart: 02-23-2025 End: 59-69-3589Voxhsf outpatient visit 15 minutesCorey Montez DO Work Phone: noms [place] OBGYNComment on above:Third trimester ([facility] 30 weeks gestation of ([facility])Start: 02-20-2025 End: 52-03-8303Enrwdokdc Result EncounterCorey Montez DO Work Phone: noms External Department UnsolicitedStart: 02-20-2025 End: 28-72-6925Awgfjxtmw Result EncounterCorey Montez DO Work Phone: noms External Department UnsolicitedStart: 02-17-2025 End: 77-88-0994Yxjzulcdm Result EncounterCorey Montez DO Work Phone: noms External Department UnsolicitedStart: 02-17-2025 End: 86-47-7768Gubufjnit Result EncounterCorey Montez DO Work Phone: noms External Department UnsolicitedStart: 02-16-2025 End: 90-50-2459Hudoxh consultation new/estab patient 80 Héctor Callahan MD MPH Work Phone: [facility] CenterComment on above:Antiphospholipid syndrome (Primary Dx); Antiphospholipid syndrome complicating , antepartum; History of CVA (cerebrovascular accident); Coordination of complex care; 29 weeks gestation of pregnancyStart: 02-16-2025 End: 66-18-6848mkvfhpqoxqXNMPV REDDY AMBATIUniversity Hospitals Lake West Medical Centertart: 02-10-2025 End: 02-72-8083Njhcchpfo encounterAnnita WELLS Work Phone: [phone]-Uwrgj Medicine at [facility] Start: 02-09-2025 End: 36-01-3795ruvyjrjofkNKYIK FAZIONot AvailableStart: 02-09-2025 End: 52-41-6670Ywhxaj outpatient visit 15 minutesCorey Montez DO Work Phone: noms [place] OBGYNComment on above:Third trimester ([facility] 28 weeks gestation of ([facility]); Anemia complicating childbirth ([facility]); Anticoagulant long-term use; Antiphospholipid antibody positive; Blood pressure elevated without history of HTN; Coagulation defect, unspecified ([facility])Start: 02-06-2025 End: 46-15-1426jddshpvnzlIITLGUMS P DOCHEVADiley Ridge Medical Center HospitalStart: 02-06-2025 End: 54-01-4164Fqtpvi outpatient visit 25 minutesMukul Noyola MD Work Phone: [phone]-Manxj Medicine at [facility] Comment on above:27 weeks gestation of (Primary Dx); Multigravida of advanced maternal age in third trimester; Gestational diabetes mellitus (GDM) in second trimester controlled on oral hypoglycemic drug; Antiphospholipid syndrome complicating , antepartum; Antiphospholipid syndromeStart: 02-05-2025 End: 57-02-2260ufklmwiszoNKNPW [facility] Ambulatory PPGStart: 02-03-2025 End: 45-41-3693blmtlpvypcRepxb R FAOFacility:FTMCStart: 01-19-2025 End: 74-53-8743gfygwdvthwVTFAU FAONot AvailableStart: 01-19-2025 End: 41-59-7513Mcwctr outpatient visit 15 minutesCorey Montez DO Work Phone: NOWA [facility] OBGYNComment on above:Second trimester ([facility] 25 weeks gestation of ([facility]); Gestational diabetes mellitus (GDM), antepartum, gestational diabetes method of control unspecified([facility]); Anticoagulant long-term use; Antiphospholipid antibody positive; Antiphospholipid antibody syndrome ([facility])Start: 56-08-7947kkslcnkeqlZocqv R FAZIOFacility:FTMCStart: 01-13-2025 End: 58-64-1367Duwuuk outpatient visit 25 minutesColleen Maxim Mays PA-C Work Phone: [phone]-Zqhvf Medicine at [facility] Comment on above:Gestational diabetes mellitus (GDM) in second trimester controlled on oral hypoglycemic drug (Primary Dx); Antiphospholipid syndrome; Other specified hypothyroidism; Antiphospholipid syndrome complicating , antepartumStart: 01-13-2025 End: 14-86-0856lknuxqouekTASLBGV E [facility] Hospitaltart: 01-09-2025 End: 48-19-0929Nnwiqnfjx Batsheva Noyola MD Work Phone: [phone]-Rsbvj Medicine at [facility] Comment on above:Antiphospholipid syndrome (Primary Dx)Start: 01-07-2025 End: 00-66-7141Xfzwyzjge encounterJacque Pat Maternal- Medicine at [facility] Centertart: 01-05-2025 End: 43-59-0503laplkruquwOVFEN FAONot AvailableStart: 01-05-2025 End: 70-12-1503Fsfady outpatient visit 15 minutesCorey [employer]agen[employer] Work Phone: NOMS [place] OBGYNComment on above:Second trimester ([facility]); 23 weeks gestation of ([facility]); Thyroid disease ; Gestational diabetes mellitus (GDM), antepartum, gestational diabetes method of control unspecified([facility]); Multigravida of advanced maternal age in second trimester ([facility]); H/O loss; Lightheaded; DizzinessStart: 01-05-2025 End: 53-16-2430Rwrydy flowsheetNewlight Technologiesy [employer]agenics Work Phone: NOGA [place] [facility]BGYNStart: 01-05-2025 End: 82-76-8434Kzkddg flowsheetCore Montez DO Work Phone: NORH [facility] OBGYNStart: 01-05-2025 End: 99-60-9204Pnvrdcrnxycrd procedureNorfolk State Hospital RNMaternal- Medicine at [facility] CenterComment on above:Multigravida of advanced maternal [...] Family history of autism; HyponatremiaStart: 01-01-2025 End: 18-75-8135Rmnxjo consultation new/estab patient 80 Margaux Noyola MD Work Phone: [facility] on above: 22 weeks gestation of (Primary Dx); Antiphospholipid syndrome complicating , antepartum; History of stroke; History of loss in prior , currently in second trimester; Gestational diabetes mellitus (GDM) in second trimester controlled on oral hypoglycemic drug; Multigravida of advanced maternal age in second trimester; Hypothyroidism affecting in second trimester; Family history of autism; HyponatremiaStart: 01-01-2025 End: 34-61-3428Dkfhzy Simon Warren RNMaternal Medicine [place] Comment on above:Multigravida of advanced maternal age in second trimester (Primary Dx); Antiphospholipid syndrome complicating , antepartum; Gestational diabetes mellitus (GDM) in second trimester controlled on oral hypoglycemic drug; Insulin controlled gestational diabetes mellitus (GDM) in second trimester; AMA (advanced maternal age) multigravida 35+, second trimester; Hypothyroidism, unspecified typeStart: 12-26-2024 End: 73-17-0538Gcehig Ty Noyola MD Work Phone: [facility] - LaborComment on above: Gestational diabetes mellitus (GDM) in second trimester controlled on oral hypoglycemic drug (Primary Dx)Start: 12-23-2024 End: 65-03-3389Rypsxac encounter procedureKatherine Negrete APRN.CNP Work Phone: Hematology/OncologyStart: 12-23-2024 End: 80-43-0699hairjxsqnkGavftJuju Negrete APRN.CNP Work Phone: Hematology/OncologyComment on above:Antiphospholipid antibody positive (Primary Dx); Iron deficiency anemia secondary to blood loss (chronic); Vitamin D deficiency; Primary hypercoagulable state (HCC)Start: 12-17-2024 End: 55-36-7175pcziicgompWXPUCISC BROGANDiley Ridge Medical Center HospitalStart: 12-17-2024 End: 38-89-6979Ihtnlx outpatient visit 25 minutesAlisa HUTTON Work Phone: [phone]-Bnrvm Medicine at [facility] Comment on above:Gestational diabetes mellitus (GDM) in second trimester controlled on oral hypoglycemic drug (Primary Dx)Start: 12-17-2024 End: 42-92-2973dlzcdmgiutJPDGTASH BROWyandot Memorial Hospital HospitalStart: 12-16-2024 End: 39-81-4541Hmqmdkmza Result EncounterCorey Montez DO Work Phone: noms External Department UnsolicitedStart: 12-16-2024 End: 20-71-5092Buwvrxhkr Result EncounterCorey Montez DO Work Phone: noms External Department UnsolicitedStart: 12-12-2024 End: 71-27-3329Gedwjekmh encounterDenkiijacinta Kendall LD Work Phone: [phone]-Fswyx Medicine at [facility] Start: 12-11-2024 End: 37-00-6514Jxmgep flowsheetCorey Montez DO Work Phone: noms [facility] OBGYNStart: 12-11-2024 End: 67-26-3708Wfqwwn flowsheetCorey Montez DO Work Phone: noms [place] [facility]BGYNStart: 12-11-2024 End: 05-31-1922Qcklwxnwv Result EncounterCorey Montez DO Work Phone: noms External Department UnsolicitedStart: 12-11-2024 End: 28-48-4412gpvxxxgoeyXQAWA FAZIONot AvailableStart: 12-11-2024 End: 36-29-1795Byolei outpatient visit 15 minutesCorey Montez DO Work Phone: noms [place] OBGYNComment on above:19 weeks gestation of ([facility]); Second trimester ([facility]); Thyroid disease ; Multigravida of advanced maternal age in second trimester ([facility]); Gestational diabetes mellitus (GDM), antepartum, gestational diabetes method of control unspecified([facility])Start: 12-03-2024 End: 87-94-2353dbrecikaroYOVUBPDW BROGANProMedica The Jewish Hospitaltart: 12-03-2024 End: 04-44-3426Wkktcn outpatient visit 25 minutesAlisa Saba BARRATTE OPERATOR-TANK TESTER Work Phone: [phone]-Szryd Medicine at [facility] Comment on above:Insulin controlled gestational diabetes mellitus (GDM) in second trimester (Primary Dx)Start: 12-03-2024 End: 77-63-6013Ykvrskaqv encounterAnni Abreu CMAMaternal- Medicine at [facility] Centertart: 11-20-2024 End: 78-37-0615Hgrtus flowsheetCorey Montez DO Work Phone: NOMS BCP OBStart: 11-20-2024 End: 03-10-1070Cjjtca flowsheetCorey Montez DO Work Phone: NOMS BCP OBStart: 11-20-2024 End: 19-66-9815ijobeapzrjUQFUL FAZIONot AvailableStart: 11-20-2024 End: 53-10-2474Biswyc outpatient visit 15 minutesCorey Montez DO Work Phone: NOMS [place] OBGYNComment on above:Second trimester ([facility]); 16 weeks gestation of ([facility]); Screening, , for anatomic survey ([facility]); Vaginal discharge; Sinus headacheStart: 11-19-2024 End: 97-29-0479epdbgmfinjGevtbg M Frey RN Work Phone: [phone]-Cdldm Medicine at [facility] Comment on above:Gestational diabetes mellitus (GDM), antepartum, gestational diabetes method of control unspecified(Primary Dx)Start: 11-04-2024 End: 30-63-7266Kcizp Syd Noyola MD Work Phone: [phone]-Oypvz Medicine at [facility] Start: 10-30-2024 End: 88-23-0704Xibbzh flowsheetCorey Montez DO Work Phone: NOMS BCP OBStart: 10-30-2024 End: 98-13-7967Qswdko flowsheetCorey Montez DO Work Phone: NOMS BCP OBStart: 10-30-2024 End: 95-35-0079Lmovet outpatient visit 15 minutesCorey Montez DO Work Phone: NOMS BCP OBComment on above:Second trimester ([facility]); 13 weeks gestation of ([facility]); Thyroid disease ; Multigravida of advanced maternal age in second trimester ([facility]); Gestational diabetes mellitus (GDM), antepartum, gestational diabetes method of control unspecified([facility]); Elevated glucose tolerance testStart: 10-30-2024 End: 60-19-8398mecffkmrqgRITPF FAZIONot AvailableStart: 10-29-2024 End: 32-77-4135FucodrAynudfBunny Paz APRN.CNP Work Phone: Hematology/OncologyComment on above:Refill Request Start: 10-28-2024 End: 02-55-1525Rrkexau encounter Valentine Negrete APRN.CNP Work Phone: Hematology/OncologyStart: 10-28-2024 End: 52-47-5171lxqdarabbzRfcptJuju Negrete APRN.CNP Work Phone: Hematology/OncologyComment on above:Primary hypercoagulable state (HCC) (Primary Dx); CVA, old, speech/language deficit; Cerebral hyponatremia; Personal history of TIA (transient ischemic attack)Start: 10-28-2024 End: 81-95-5333Gahioghas Gregoria Negrete APRN.CNP Work Phone: Cancer Appts MCComment on above:ResultsStart: 10-24-2024 End: 99-29-8677Zuzrkqxan Gregoria Negrete APRN.CNP Work Phone: Hematology/OncologyComment on above:Lab OrdersStart: 10-20-2024 End: 81-37-2987YtsldjXlqmj Abhyankar MD Work Phone: Hematology/OncologyComment on above:Refill Request Start: 10-13-2024 End: 61-02-8436LildbjDell Khan RNMaternal- Medicine at [facility] CenterComment on above:Gestational diabetes mellitus (GDM), antepartum, gestational diabetes method of control unspecified(Primary Dx)Start: 10-06-2024 End: 83-87-6106Xuoucgxhs Result EncounterCorey Montez DO Work Phone: noms External Department UnsolicitedStart: 10-06-2024 End: 09-83-3884Zdpxgrskr Result EncounterCorey Montez DO Work Phone: noms External Department UnsolicitedStart: 10-02-2024 End: 98-92-9086vfbddqaadvAADLY FAZIONot AvailableStart: 10-02-2024 End: 02-65-7336Mrtmmv outpatient visit 5 minutesNoms Bcp Ob Montez NurseNOMS BCP OBComment on above:GA: 0p7fZibvs: 09-11-2024 End: 32-06-6392Imxbajkbf Result EncounterCorey Montez DO Work Phone: noms External Department UnsolicitedStart: 09-11-2024 End: 07-17-0281Tmzdqvtoo Result EncounterCorey Montez DO Work Phone: noms External Department UnsolicitedStart: 09-09-2024 End: 60-15-6959hnoibincshTlfeh A KAPLEFacility:Val PCStart: 09-09-2024 End: 85-35-8373Bniynhk encounter procedureScomike CASAS [phone]-NtvofKettering Health [facility] Start: 09-07-2024 End: 95-92-4683hntinnjqneXvgee M. DempseyFacility:GIL [place]walkStart: 09-02-2024 End: 29-68-8592Oztgqekqv encounterNatmurphy Johnson RNHematology/OncologyComment on above:Patient UpdateStart: 08-26-2024 End: 73-22-3920Evkzitbax encounterKristofer Calix MD Work Phone: Hematology/OncologyComment on above:Lab OrdersStart: 08-23-2024 End: 81-05-5360rgpfxzubxcQlqrb R FAZIOFacility:FTMCStart: 08-23-2024 End: 06-45-6576Pnsluae encounter procedureCorecarmen Palmer [facility] Start: 07-25-2024 End: 45-65-2247RxenlpWvwpr Abhyankar MD Work Phone: Hematology/OncologyComment on above:Refill Request Start: 07-24-2024 End: 00-99-8010Lgppus flowsheetCorey Montez DO Work Phone: noms BCP OBStart: 07-24-2024 End: 21-75-5782Hexjax flowsheetCorey Montez DO Work Phone: noms BCP OBStart: 07-24-2024 End: 21-95-8712mpaqosuxkbYYUXH FAZIONot AvailableStart: 07-24-2024 End: 65-50-8454Rtgeay outpatient visit 15 minutesCorey Montez DO Work Phone: noms BCP OBComment on above:Irregular menstrual cycle Start: 07-09-2024 End: 56-44-8520npadgftixuCtbmbyz A VisciFacility:FTMCStart: 07-09-2024 End: 03-45-2752Oqlszjh encounter procedureInez [facility] Start: 07-08-2024 End: 94-79-2701Zxk-admission assessmentInez [facility] Start: 07-07-2024 End: 17-71-2817zqppwvzpnwDqdtp A KAPLEFacilсветлана:Val PCStart: 06-30-2024 End: 27-23-4670mooelmkuqmSdklk A KAPLEFacility:Val PCStart: 06-30-2024 End: 14-70-5783Mlnbhge encounter procedureScomike CASAS [phone]-SefneKettering Health [facility] Start: 06-23-2024 End: 44-83-8228Ofljlc outpatient visit 15 minutesCorey Montez DO Work Phone: noms [facility] OBComment on above:Vaginal bleeding; Dizziness; Abnormal TSH; Vaginal discharge; Pelvic pain in femaleStart: 06-23-2024 End: 32-71-2178oenlaakjriJOLKF FAZIONot AvailableStart: 06-23-2024 End: 07-47-3828Vqrxcnxj Result EncounterCorey Montez DO Work Phone: noms External Department UnsolicitedStart: 06-23-2024 End: 10-04-8343Loaldtzq Result EncounterCorey Montez DO Work Phone: noms External Department UnsolicitedStart: 06-19-2024 End: 51-19-4451odinbltfpoSDOYOJ R CIERSEZWSKIFacility: MilanStart: 06-19-2024 End: 97-43-6837Amrgxev encounter procedureJACLYN Jeanine BACA [phone]-QjcbzSouthwest General Health Center Start: 06-12-2024 End: 96-58-4003fwkgedlnneMlamw R SHYLAZIOFacility:FTMCStart: 06-12-2024 End: 60-39-1017Rcgbewy encounter procedureCorey R [facility] Start: 06-09-2024 End: 43-04-3521ttyijjhnjbCglke A KAPLEFacility:Val PCStart: 06-09-2024 End: 95-47-7814Pogvkez encounter procedureCorey R [facility] Start: 06-06-2024 End: 09-68-4678jgeksrrbxcJALAEL A LEHMANNFacility:FT BellevueStart: 06-02-2024 End: 06-11-3360hjbrdpyanwFHNKJ FAZIONot AvailableStart: 06-02-2024 End: 25-39-8948Rfmxab outpatient visit 15 minutesCorey Montez DO Work Phone: noms BCP OBComment on above:Follow-up visit after miscarriage; Abnormal TSH; History of thyroid diseaseStart: 05-28-2024 End: 55-41-3057Zdkwxfqwr encounterKristofer Calix MD Work Phone: Cancer Appts MCStart: 05-28-2024 End: 66-15-4588Beagbe outpatient visit 25 minutesKristofer Calix MD Work Phone: Hematology/OncologyComment on above:Primary hypercoagulable state (HCC) (Primary Dx); CVA, old, speech/language deficit; Iron deficiency anemia secondary to blood loss (chronic); Vitamin D deficiency; Antiphospholipid antibody syndrome (HCC)Start: 05-28-2024 End: 78-16-9598sabpfzmusgMTROT ABHYANKARFacility:[facility] Campustart: 47-77-7449eghelwyunvYaepr A KAPFacility:[place] PCStart: 05-14-2024 End: 83-33-9331Jyczomogn encounterNatmurphy Johnson RNHematology/OncologyComment on above:Patient UpdateStart: 05-10-2024 End: 29-68-7422Wdrejpxco Result EncounterCorey Montez DO Work Phone: noms External Department UnsolicitedStart: 05-10-2024 End: 75-52-9272Hrxqcvnfq Result EncounterCorey Montez DO Work Phone: noms External Department UnsolicitedStart: 05-10-2024 End: 63-78-1587ohxipfjmowKxgkp FazioFiTriHealth Ctr Work Phone: Start: 05-10-2024 End: 65-72-3917Sqxlcfbq ReferredCorey Montez DO Work Phone: [facility]-LAB Path Spec [facility] HospStart: 05-06-2024 End: 25-46-9603laztaqodqnUROCY FAZIONot AvailableStart: 05-06-2024 End: 40-13-1737Gcnfzr flowsheetCorey Montez DO Work Phone: noms BCP OBStart: 05-06-2024 End: 14-86-9245Vioing flowsheetCorey Montez DO Work Phone: NOVD BCP OBStart: 05-06-2024 End: 61-47-7704mydjzplgdmNBAJA FAZIONot AvailableStart: 05-06-2024 End: 02-38-8058Jddsbd outpatient visit 15 minutesCorey Montez DO Work Phone: noms BCP OBComment on above:14 weeks gestation of ; Second trimester ; Confirm viability with history of miscarriage, ultrasoundStart: 04-28-2024 End: 73-58-6054QalmszBphxn Abhyankar MD Work Phone: Hematology/OncologyComment on above:Refill Request Start: 04-12-2024 End: 53-46-2425Xomvfgcwv Result EncounterCorey Montez DO Work Phone: noms External Department UnsolicitedStart: 04-12-2024 End: 23-25-7244Pjzslwjqm Result EncounterCorey Montez DO Work Phone: noms External Department UnsolicitedStart: 04-05-2024 End: 62-11-7280Avoggrppo Result EncounterCorey Montez DO Work Phone: noms External Department UnsolicitedStart: 04-05-2024 End: 04-26-4375Pppmewcom Result EncounterCorey Montez DO Work Phone: noms External Department UnsolicitedStart: 04-04-2024 End: 46-09-5639eedrgxmmkqJGJOD FAZIONot AvailableStart: 04-04-2024 End: 80-64-1063Yfbtua outpatient visit 5 minutesNoms Bcp Ob Montez NurseNOMS BCP OBComment on above:GA: 9s2iMvoiu: 03-01-2024 End: 11-28-6889vdwuzbnrenYvqqv R FAZIOFacility:FTMCStart: 03-01-2024 End: 67-85-3785Uyyfbtz encounter procedureCorey R [facility] Start: 02-27-2024 End: 72-95-7952sokembuedqEpplm R FAZIOFacility:FTMCStart: 02-27-2024 End: 37-92-5750Fxxgjgsnu encounterNatmurphy Johnson RNHematology/OncologyComment on above:Patient QuestionStart: 02-25-2024 End: 55-67-6640jdyintxxaxCwzle R FAZIOFacility:FTMCStart: 02-25-2024 End: 99-00-6663Qflefuc encounter procedureCorey R [facility] Start: 02-23-2024 End: 95-49-3454ohxrmhrjteIexqw A KAPLEFacility:FTMCStart: 02-23-2024 End: 85-31-3332Fhpyqdn encounter procedureCorey R [facility] Start: 02-05-2024 End: 60-64-7926vfyrjnsbycTkmry A STEPHANILEFacility:Val PCStart: 02-05-2024 End: 91-74-4977Mpktfcg encounter procedureScott A KAPLE [phone]-IwinzKettering Health [facility] Start: 02-05-2024 End: 96-69-9733Ilck adult monitoring check doneScott A STEPHANILE [phone]-NxaqbKettering Health [facility] Start: 02-02-2024 End: 30-88-6907aaccbtgshbRujpig GudimellaFacility:GIL TaylorkStart: 02-02-2024 End: 95-69-6780Puzljup encounter procedurePreeti Merlincatiesherry [phone]-FjqyoK[facility] Start: 29-44-7029msfiqzumakFeptp A STEPHANI Facility:[place] PCStart: 01-24-2024 End: 12-96-0519ZkuomsZqsgh Abhyankar MD Work Phone: Hematology/OncologyComment on above:Refill Request Start: 01-02-2024 End: 24-38-5749Htivojhbk encounterKristofer Calix MD Work Phone: Cancer Appts MCComment on above:ResultsStart: 01-02-2024 End: 61-30-3927Gwblyj outpatient visit 15 minutesKristofer Calix MD Work Phone: Hematology/OncologyComment on above:Iron deficiency anemia secondary to blood loss (chronic) (Primary Dx); Vitamin D deficiency; Malaise and fatigueStart: 12-17-2023 End: 86-53-4794Mfeumpbwp encounterNatalimaxim Johnson RNHematology/OncologyStart: 12-06-2023 End: 28-18-9960lyksvkabrpVqbjskaoi L ClarkFacility:FTMCStart: 12-06-2023 End: 27-00-7545Aldyqnc encounter procedureMonica Saba [facility] Start: 08-05-6362mjfdwhbnoyBhvxa A STEPHANI Facility:[place] PCStart: 11-29-2023 End: 07-50-5637qbkoxjqkvcDlubn Abhyankar MD Work Phone: Hematology/OncologyComment on above:Iron infusion side effects?Refill RequestIron deficiency anemia of (Primary Dx); Iron deficiency anemia secondary to blood loss (chronic)Start: 11-22-2023 End: 93-74-8291rrhkwenjckIdjad Angelito Claudio Work Phone: Hematology/OncologyComment on above:Iron deficiency anemia of (Primary Dx); Iron deficiency anemia secondary to blood loss (chronic)Start: 11-15-2023 Telephone encounterFinancial Navigator Delgado Work Phone: Hematology/OncologyStart: 11-15-2023 End: 50-49-2411hpucwmiwppJweab Angelito Stew Work Phone: Hematology/OncologyComment on above:Iron deficiency anemia of (Primary Dx); Iron deficiency anemia secondary to blood loss (chronic)Start: 11-09-2023 End: 66-19-9698Pcaeten encounter procedureElirachna Saba [phone]-XdfmbKettering Health [facility] Start: 11-09-2023 End: 81-61-2359Rdxfhn WorkLori Penelope FLYNNematology/OncologyStart: 11-05-2023 Telephone encounterKristofer Calix MD Work Phone: Cancer Appts MCComment on above:AppointmentStart: 10-23-2023 End: 40-27-8200eoshpzpyzoZxsrftm Grace MisslerFacility:Val PCStart: 10-23-2023 End: 43-84-9067Jzarwcg encounter procedureLourdes Garber [phone]-XeqzmKettering Health [facility] Start: 09-28-2023 End: 92-56-8957Zhgmrarnm department patient visitBenny Uribe [facility] Start: 09-28-2023 End: 93-96-1977jdhsknsnruFZDelma DUNHAMFacility:GIL TaylorkStart: 09-28-2023 End: 30-28-1930Rrnbpmr encounter procedureJANET DUNHAM [phone]-KmioiKettering Health [facility] Start: 03-37-5382Dwxniwgtj encounterKristofer Calix MD Work Phone: Canltw Appts MCComment on above:Appointment RescheduledStart: 09-21-2023 End: 27-51-4147ntoehfqheiRrqkn Abhyankar MD Work Phone: Hematology/OncologyComment on above:Iron deficiency anemia secondary to blood loss (chronic) (Primary Dx)Start: 09-21-2023 End: 81-36-5838Poovyycjuwgw consultation with Song Calix MD Work Phone: Hematology/OncologyStart: 08-03-2023 End: 01-18-5463hzflnmmhknKwaxl A KAPLEFacility:Val PCStart: 08-03-2023 End: 70-25-5154Jwyoacf encounter procedureScott Cecily CASAS [phone]-XpioiK[facility]tering [facility] Start: 06-29-2023 End: 83-61-0520bvqbkyxlidRpvwk A KAPLEFacility:Val PCStart: 06-29-2023 End: 86-45-1990Lrueauh encounter procedureScott A KAPLE [phone]-XwxkzKettering Health [facility] Start: 84-48-7521yanokudvrjMvvkgin Powell livestock showman/OncologyComment on above:Lab results/recommendationsStart: 06-19-2023 E-mail encounter from Jose Carlos Johnson RNSANDUSKYStart: 06-15-2023 End: 09-00-7729Xlwdrt outpatient visit 25 minutesKristofer Calix MD Work Phone: Hematology/OncologyComment on above:Vitamin D deficiency (Primary Dx); Hypercalcemia; Iron deficiency anemia secondary to blood loss (chronic)Start: 06-15-2023 Telephone encounterKristofer Calix MD Work Phone: Cancer Appts MCComment on above:ResultsStart: 14-86-6421Lnmfsxhui encounterKristofer Calix MD Work Phone: Hematology/OncologyComment on above:Lab OrdersStart: 05-30-4199Tmnfbkyxa encounterKristofer Calix MD Work Phone: Cancer Appts MCComment on above:Future Appointment Start: 05-31-2023 End: 82-06-0400magxptetqpDinyy Abhyankar MD Work Phone: Hematology/OncologyComment on above:Primary hypercoagulable state (HCC) (Primary Dx); CVA, old, speech/language deficit; Hypercalcemia; Vitamin D deficiency; Iron deficiency anemia secondary to blood loss (chronic); Malaise and fatigueStart: 05-31-2023 End: 14-58-9006Axjjjlwiqsin consultation with Song Calix MD Work Phone: SANDUSKYStart: 05-25-2023 End: 19-01-0456tjwjjujdlbJwoxf A KAPLEFacility:Val PCStart: 05-25-2023 End: 75-22-3484Tawnpfc encounter Coreen CASAS [phone]-IggouKettering Health [facility] Start: 05-01-2023 End: 93-01-1980dmtfiorwjcWndii A KAPLEFacility:FTMCStart: 04-27-2023 End: 36-49-6318Vza Drop offSelissa CASAS [facility] Start: 04-27-2023 End: 09-91-8726ibnmgimivgHhmxb A KAPLEFacility:FTMCStart: 04-25-2023 End: 77-12-3861sdoblvzrzlKyld L SchwabFacility:FT FM BellevueStart: 03-19-2023 End: 95-39-6741jcaimzwnbzVwtzbVernell Calix MD Work Phone: Hematology/OncologyComment on above:Primary hypercoagulable state (HCC) (Primary Dx); Iron deficiency anemia secondary to blood loss (chronic); Vitamin D deficiency; CVA, old, speech/language deficit; Antiphospholipid antibody syndrome (HCC)Start: 03-19-2023 End: 32-22-1466Lgttradrwqpf consultation with Song Calix MD Work Phone: SANDUSKYStart: 02-15-2023 End: 30-34-9010ckegzkkvvdJepzn A KAPLEFacility:[place] PCStart: 02-15-2023 End: 25-59-9692Dxmvggi encounter procedureScomike CASAS [phone]-YfsghKettering Health [facility] Start: 02-33-4192jflrdsxqiwNheoz A KAPLE Facility:[place] PCStart: 12-26-2022 End: 10-19-0509boqycczajxEautaou Grace MisslerFacility:[place] PCStart: 12-26-2022 End: 59-94-7044Luhpvhv encounter procedureLourdes Garber [phone]-SoyzwKettering Health [facility] Start: 12-22-2022 End: 13-86-4628wrhtylzudjZshrn Abhyankar MD Work Phone: Hematology/OncologyComment on above:Primary hypercoagulable state (HCC) (Primary Dx); Iron deficiency anemia of ; Iron deficiency anemia secondary to blood loss (chronic); Vitamin D deficiencyStart: 12-22-2022 End: 73-26-0611Keyymcaxafyf consultation with Song Calix MD Work Phone: SANDUSKYStart: 38-03-7449Neujjpobj encounterKristofer Calix MD Work Phone: Cancer Appts MCComment on above:AppointmentStart: 10-20-2022 End: 58-69-2143Ifopasf encounter procedureScott A KAPLE [phone]-AdegdKettering Health [facility] Care Start: 09-28-2022 End: 68-04-1733oznxgxjvxaYpqmcVernell Calix MD Work Phone: Hematology/OncologyComment on above:Primary hypercoagulable state (HCC); CVA, old, speech/language deficit; Cerebral hyponatremiaStart: 09-28-2022 End: 89-04-6016Ybfargnnmucp consultation with Song Calix MD Work Phone: SANDUSKYStart: 09-26-2022 End: 89-03-1478Lobkisg encounter procedureKristofer Calix [facility] Start: 47-93-4279Xorvoveoh encounterValeri Yeung RN Hematology/OncologyComment on above:OrdersStart: 09-05-2022 End: 62-47-0796Uehwneg encounter procedureCorey R MONTEZ [facility] Start: 08-07-2022 End: 12-66-1602Lcntckn encounter procedureCorey R MONTEZ [facility] Start: 07-27-2022 End: 80-08-5037Fwlqqp outpatient visit 25 minutesKristofer Calix MD Work Phone: Hematology/OncologyComment on above:Primary hypercoagulable state (HCC) (Primary Dx); Iron deficiency anemia secondary to blood loss (chronic); CVA, old, speech/language deficitStart: 96-81-4908GycqlgUkroa Abhyankar MD Work Phone: Hematology/OncologyComment on above:Refill Request Start: 05-16-2022 End: 02-02-2173eckqxtfzpiAU WILTON FAZIOFacility:H2Jsisb: 05-10-2022 End: 15-62-4114kghpuimgvjTI WILTON FAZIOFacility:H2Zftrp: 05-08-2022 End: 08-40-0069Khhnxopzev and management of inpatientDR KALPANA THOMAS Facility:S7Aqyop: 05-05-2022 End: 02-75-0687uqabgwucrzUW KALPANA THOMASFacility:L2Cfnlk: 05-01-2022 End: 48-95-0939ymhothbaboTU WILTON FAZIOFacility:X6Igfmc: 04-28-2022 End: 46-03-9474wfpzpmnghtAB WILTON FAZIOFacility:N2Uteff: 04-24-2022 End: 45-50-8007tjqlrmgvweQL KALPANA THOMASFacility:X6Zssgf: 04-20-2022 End: 64-21-0050wrasqinwgwDohre [address] Work Phone: Hematology/OncologyComment on above:Iron deficiency anemia secondary to blood loss (chronic) (Primary Dx); Iron deficiency anemia of pregnancyStart: 04-19-2022 End: 53-76-1065etafzwhuliPP WILTON FAZIOFacility:R1Yakga: 04-14-2022 End: 77-68-1520mpxippziouBZ WILTON FAZIOFacility:L1Vuetw: 04-07-2022 End: 72-01-6570tryqqtesxoUQ WILTON FAZIOFacility:I5Zrdei: 09-56-6170NzgxcoXyfqoSalvador Calix MD Work Phone: Hematology/OncologyComment on above:Refill Request Start: 04-05-2022 End: 37-88-3236nrachyestkEcfoh 11 [address] Work Phone: Hematology/OncologyComment on above:Iron deficiency anemia secondary to blood loss (chronic) (Primary Dx); Iron deficiency anemia of pregnancyStart: 97-62-7257Ddxtskncr Foster Gonzalez Hematology/OncologyComment on above:Appointment; Patient Question; Medication Question; OrdersStart: 03-31-2022 End: 03-07-5685hmgjglagenYU WILTON FAZIOFacility:H0Ttyht: 03-27-2022 End: 23-80-0519dfoanddqepCmovcVernell Calix MD Work Phone: Hematology/OncologyComment on above:Iron deficiency anemia secondary to blood loss (chronic); Iron deficiency anemia of pregnancyStart: 03-27-2022 End: 28-63-8564Ejgdtwp encounter procedureKristofer Calix MD Work Phone: SANDUSKYStart: 16-90-8905Jjkaqvkkr encounterKristofer Calix MD Work Phone: Cancer Appts MCComment on above:ResultsStart: 03-24-2022 End: 57-76-9201xfjgaaqjinAF WILTNO FAZIOFacility:O8Kcxbp: 03-16-2022 End: 59-12-1643yyndfqzomcEH WILTON FAZIOFacility:U1Pufky: 02-24-2022 End: 81-28-2990fdmohfafruXV WILTON FAZIOFacility:D7Eswvn: 02-14-2022 End: 87-25-8177pxhqakdwlqUB WILTON FAZIOFacility:V0Sjbsy: 01-30-2022 End: 58-22-9241dssvmxmbtkTdbqmVernell Calix MD Work Phone: Hematology/OncologyComment on above:Primary hypercoagulable state (HCC) (Primary Dx); CVA, old, speech/language deficit; Antiphospholipid antibody syndrome (HCC); Anemia, unspecified typeStart: 01-30-2022 End: 14-14-3142Jtvqixn encounter Dionicio Calix MD Work Phone: SANDUSKYStart: 01-24-2022 End: 73-85-8680gujzcxhpksVJ WILTON FAZIOFacility:H8Wslmf: 01-24-2022 End: 12-12-9487rutzfroibzHA WILTON FAZIOFacility:L0Adsbt: 01-07-2022 End: 08-34-5285woosveuhdyAT WILTON FAZIOFacility:R8Pulfp: 31-15-7123LqyclnHnragpAwilda Pope RN Work Phone: Hematology/OncologyComment on above:Refill Request Start: 12-28-2021 End: 90-17-3765pljvhmrbwjRE WILTON FAZIOFacility:Z3Nijig: 11-21-2021 End: 37-88-8166vqvudgfopkSEZGF A KAPLECherrington Hospitaltart: 11-21-2021 End: 38-25-8164Rnqnpvovio hospital visit by Sean Casas Work Phone: stVZ LaboratoryStart: 11-14-2021 End: 80-63-7686Wjtzdnj encounter procedureSBellevue Hospital Start: 13-86-5367sqdrscxzluQJ WILTON FAZIOFacility:H1 Start: 10-25-2021 End: 67-90-8330ouyhhafjlkQP WILTON FAZIOFacility:M3Jcklx: 35-28-5775CqkibjLiwny Nickelson RNHematology/OncologyComment on above:Refill RequestStart: 09-23-2021 End: 50-51-0951vytmngqfwfUT WILTON FAZIOFacility:V4Eafjw: 16-44-6220Rgljjojco encounterMeme Easton RNHematology/OncologyComment on above:Medication QuestionStart: 23-25-7643Vrnqdneex encounterMeme Easton livestock showman/OncologyComment on above:Patient QuestionStart: 09-01-2021 End: 97-63-7066sbwpsogtqgHK WILTON FAZIOFacility:X8Zsvhz: 08-31-2021 End: 20-91-3460Anpconc encounter Coreen CASAS [facility] Start: 08-29-2021 End: 98-79-1576smupekucxvCY WILTON FAZIOFacility:W3Telih: 08-26-2021 End: 78-29-5892sywxlhbjuhFH WILTON FAZIOFacility:Q8Diylm: 08-24-2021 End: 14-37-8106ptweilsjivHT WILTON FAZIOFacility:A1Ljqil: 78-38-5074Qhgyxenrm encounterMeme Easton RNHematology/OncologyComment on above:Patient Question Start: 08-19-2021 End: 73-19-6586Bmczafz encounter procedurePERNELL LONGORIA [facility] Start: 08-19-2021 End: 28-86-6900Pls Drop offPERNELL LONGORIA [facility] Start: 08-19-2021 End: 68-28-4531Zuxvzbe encounter procedurePERNELL LONGORIA [phone]-LbmzzKettering Health [facility] [place] Start: 41-80-5741Vlxwqmgxc encounterKristofer Calix MD Work Phone: Cancer Appts MCComment on above:Future Appointment Start: 08-01-2021 End: 39-19-1958Jdngjno evaluation of patient and reportMa Nurse Delgado Golden Work Phone: Hematology/OncologyComment on above:Infective urethritis (Primary Dx)Start: 81-29-9826Kohwcnl encounter procedureHaseeb MorelFacility:[facility] BStart: 92-03-0561Khidszz encounter procedure ERIKA LONDONFacility:9459Start: 05-25-2017 End: 38-34-7275AxpiqvtkaiONEAS R [facility] Procedures DateProcedureProcedure DetailPerforming ClinicianStart: 03-97-4227FV OB BPP W NON-STRESSCorey Montez DO Work Phone: Start: 97-04-5184DD OB BPP W NON-STRESSCorey Montez DO Work Phone: Start: 85-80-7422Qdhox dip stick/tablet rgnt non-auto w/o micrscpCorey Montze DO Work Phone: Start: 11-96-1660JW OB BPP W NON-STRESSCorey Montez DO Work Phone: Start: 77-96-8902NN OB GROWTHCorey Montez DO Work Phone: Start: 96-61-5787FFK CBC WITH AUTO DIFFCorey Montez DO Work Phone: [phone]: 44-33-0879Htlrd dip stick/tablet rgnt non-auto w/o micrscpCorey Montez DO Work Phone: Start: 03-19-6717Neeon dip stick/tablet rgnt non-auto w/o micrscpCorey Montez DO Work Phone: Start: 59-13-9182Flqha dip stick/tablet rgnt non-auto w/o micrscpCorey Montez DO Work Phone: Start: 29-25-7702EL OB CERVICAL LENGTHCorey Montez DO Work Phone: Start: 17-96-7480GQX UA (CLEAN/CATCH) 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 IND.Wilton Montez DO Work Phone: Start: 49-53-5225NOY THYROID STIM HORMONECorey Montez DO Work Phone: Start: 47-86-4502Yyaoi dip stick/tablet rgnt non-auto w/o micrscpCorey Montez DO Work Phone: Start: 78-47-3108Qetse dip stick/tablet rgnt non-auto w/o micrscpCorey Montez DO Work Phone: Start: 12-72-3619Kjsyuov quantitative blood xcpt reagent stripCharles Cortes MD Work Phone: Start: 22-74-7498Fwbdb dip stick/tablet rgnt non-auto w/o micrscpCorey Montez DO Work Phone: Start: 19-62-5900Mmnvi of thyroid stimulating hormone tshNot In System Ref ProvStart: 01-48-2937Jnlssbhs screenMukul Noyola MD Work Phone: Start: 24-67-0784Srku scrn 1+ class nonchromoNot In System Ref ProvStart: 03-47-8877Adqqcsvosk glycosylated u2tKtveyzch Provider ExternalStart: 32-01-7113EIG 1&2 AB/AG SCREEN (P24 AG)Not In System Ref Prov Start: 18-10-2685Tdqd ia hepatitis b surface antigenNot In System Ref ProvStart: 73-45-1483MSEM AND SCREENNot In System Ref ProvStart: 89-55-6061DDU CBC WITH AUTO DIFFCorey Montez DO Work Phone: Start: 93-07-6483Sydod dip stick/tablet rgnt non-auto w/o micrscpCorey Montez DO Work Phone: Start: 43-06-2914XJ OB TRANSVAGINALCorey Montez DO Work Phone: Start: 47-50-9614Beteo test visual color cmprsn methsCorey Montez DO Work Phone: Start: 19-22-1308PUCNQHVEX VAGINITIS (HTRX)Wilton Montez DO Work Phone: Start: 21-93-9913Rudiz dip stick/tablet rgnt non-auto w/o micrscpCorey Montez DO Work Phone: Start: 72-23-5880EJ PELVISCorey Montez DO Work Phone: Start: 51-96-1788Du uterus limited 1/> fetusesCorey Montez DO Work Phone: Start: 71-30-0264ZXT CBC WITH AUTO DIFFCorey Montez DO Work Phone: Start: 63-27-8316GOD IMMUNOGLOBULIN GCorey Montez DO Work Phone: Start: 01-36-3780FAL IMMUNOGLOBULIN MCorey Montez DO Work Phone: Start: 49-50-9477MJF MISCELLANEOUS TESTCorey Montez DO Work Phone: Start: 31-89-3491RXM APTTCorey Montez DO Work Phone: Start: 09-05-3724IHDCOB V LEIDEN MUTATIONCorey Montez DO Work Phone: Start: 23-67-3485XQCBA HOMOCYSTEINECorey Montez DO Work Phone: Start: 40-27-1035ELFL FIBRINOGENCorey Montez DO Work Phone: Start: 53-42-8116XRQFHFW C-FUNCTIONALCorey Montez DO Work Phone: Start: 69-78-7603NCDMTJR S-ANTIGENCorey Montez DO Work Phone: Start: 80-71-8224QCZYFA PROTHROMBIN TIME INR W/O COUM Wilton Montez DO Work Phone: Start: 39-64-1115HGD ANTITHROMBIN ACTIVITYCorey Montez DO Work Phone: Start: 53-25-0029Iczlx dip stick/tablet rgnt non-auto w/o micrscpCorey Montez DO Work Phone: Start: 81-84-4365BAF TESTCorey Montez DO Work Phone: Start: 47-93-6874NWO DRUG SCREEN RAPID (URINE)Wilton Montez DO Work Phone: Start: 34-26-0863XC OB TRANSVAGINALCorey Montez DO Work Phone: Start: 04-04-2024 End: 43-48-7235Nubwo dip stick/tablet rgnt non-auto w/o micrscpCorey Montez DO Work Phone: Start: 69-35-2634Pugzbyk refused by patient Immunization not carried out because of patient decisionNoms NurseStart: 94-01-7850Lwpjizzb of Products of Conception, External ApproachDR WILTON HERRMANN Start: 04-07-6025Yvzq bld gluc mntr dev cleared fda spec home useCcf Provider Start: 88-61-4975Jzehkbpdhtw observation [Identifier] in Cervix by Cyto stain Wilton Herrmann DO Work Phone: Start: 11-21-2021 End: 19-21-6209Prgiy-fetoprotein serumScanning Provider ExternalStart: 11-21-2021 End: 42-17-2829DMVITDG STUDY NON-PROMEDICAScanning Provider ExternalStart: 57-20-4055JVHPNSOAGCOLB TESTINGSraubrie Mullins MD Work Phone: Start: 51-91-1938Fnauj depression screening assessment Nevin Golden Work Phone: Start: 95-25-8647ZQR CULTUREDHRUV PATELStart: 59-19-1598SGSLUWWTB PATELStart: 68-75-2663BCA CELL COUNT WITH DIFFERENTIALDHRUV PATELStart: 09-65-9529DZHUPTW SIMPSON VIRUS PCRDHRUV PATELStart: 17-93-9691FYPVGGJ, CSFDHRUV PATELStart: 96-24-9829TQKBIG BASIC PROTEIN, CSFDHRUV PATELStart: 15-68-5885QUYMUPGSHGD BANDINGDHRUV PATELStart: 11-62-9704MPTEUWH, CSFDHRUV MONGE Start: 40-32-3918ACMOYKT-INRDHRUV PATELStart: 69-08-4469Zdusam puncture lumbar diagnosticDHRUV PATELStart: 83-07-9740PTMINRPXMFAIRMBC ANTIBODY PANELDHRUV MONGE Start: 51-56-3366LQWPEMMPEBE AB IGG, IGM, IGADHRUV PATELStart: 83-94-1015GUPGSMM PATELStart: 66-68-6211QQKSYPHWECMQ, SERUMDHRUV PATELStart: 25-15-7331LWQO ARUP 1DHRUV PATELStart: 49-45-4030PLIXRSECCJV PATELStart: 88-18-5625NBJETIXMWOBG PATELStart: 90-77-4902Lqsece of breastDERIK SIDELL Start: 13-51-1754Bnoscxilav of wisdom toothDERIK SIDELL endoscopy for ovarian cysts to drainDERIK SIDELL Vaccine refused by patientCOVID-19 vaccine dose declined( Confirmed )PERNELL SIDELL Plan of Treatment DateCare ActivityDetailAuthorStart: 99-37-2862WSO Vaccine (1 - 1-dose 75+ series)RSV Vaccine (1 - 1-dose 75+ series)[facility]: 96-50-0644Irdjn BMI ScreeningAdult BMI ScreeningMercy Health St. [facility] SystemStart: 84-27-5486Zfttdvk ScreeningTobacco ScreeningMercy Health St. [facility] SystemStart: 75-26-9094Ohshgkm ScreeningTobacco ScreeningMercy Health St. [facility] SystemStart: 01-05-2026 End: 25-68-4022EQ MFM with or without consultUS MFM with or without consult Imaging Routine Multigravida of advanced maternal age in second trimester Antiphospholipid syndrome complicating , antepartum Gestational diabetes mellitus (GDM) in second trimester controlled on oral hypoglycemic drug AMA (advanced maternal age) ldmvqagtyyha29+, second trimester Hypothyroidism, unspecified type History of stroke History of loss in prior , currently in second trimester Hypothyroidism affecting in second trimester Family history of autism Hyponatremia Expected: 01/05/2026 (Approximate), Expires: 01/05/2026ProLucky Ant Work Phone: comment on above:Expected: 01/05/2026 (Approximate), Expires: 01/05/2026Start: 60-65-9290Htvlf BMI ScreeningAdult BMI Screening [facility] SystemStart: 55-05-6180Syuxwxp ScreeningTobacco Screening [facility] SystemStart: 27-30-1082Bokuu BMI ScreeningAdult BMI Screening [facility] SystemStart: 04-07-2025 End: 02-11-1408Vzbevzxkgraj consultation with uulaisr8304/07/2025 1:30 PM EST Telemedicine Maternal- Medicine at [facility] [address] [facility] [place] [id number] Roxana Mays PA-C [address] [place] [address] [facility] at [facility] HospitalStart: 03-17-2025 End: 13-67-6044Qyhkecrecsiy consultation with mwrfqfk8503/17/2025 8:30 AM EST Telemedicine [facility] Rheumatology, A Department of [address] [address] Sam Callahan MD [address] [address] [facility], A Department of [facility] HospitalStart: 03-10-2025 End: 58-74-0664Lcpymdf encounter pnydirirw97/11/2025 9:50 AM EST Routine NOMJaylan COLVIN [address] [place], [id number] Wilton Herrmann DO [address] [place] [address] NOMS Piyush OBGYNStart: 03-10-2025 End: 80-09-8914Ibqnyrvttgnl consultation with eifuxij3803/10/2025 8:00 AM EST Telemedicine Maternal- Medicine at [facility] [address] [facility] [place] [phone] Sana Palma MD [address] [place] [address] [facility]: 42-78-3222DSR ( or age 60+ yrs) (1 - Risk 1-dose series)RSV ( or age 60+ yrs) (1 - Risk 1- dose series)[facility] SystemStart: 03-02-2025 End: 65-27-7546Ihzjpy-up jghsupisr22/03/2025 11:30 AM EST Visit (SP) Office Hematology/Oncology [address] [address] Katherine Negrete APRN.TANK TESTER [address] [address] 2 month follow upHematology/OncologyComment on above:2 month follow upStart: 03-02-2025 End: 07-79-3200Bbgobro encounter aepguenxi00/03/2025 11:15 AM EST Office Visit [facility] [address] [address] labNortSelect Specialty Hospital-Pontiac LaboratoryComment on above:labStart: 02-23-2025 End: 42-01-2257Qbmpzif encounter zyhazcqxp54/27/2025 9:00 AM EDT Routine NOMJaylan ROBBGYN [address] [place], [id number] Wilton Herrmann DO [address] [facility] [place] [address] SHILOH [place] OBGYNStart: 02-18-2025 End: 58-18-0842YJX W Auto Differential panel - BloodCOMPLETE BLOOD COUNT AND DIFFERENTIAL Lab Routine 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) Vitamin D deficiency Primary hypercoagulable state (HCC) Expected: 02/18/2025, Expires: 05/20/2025leveland ClinicComment on above:Expected: 02/18/2025, Expires: 05/20/2025Start: 02-18-2025 End: 06-54-2259Iiqfdazlgmplq metabolic 2000 panel - Serum or PlasmaCOMPREHENSIVE METABOLIC PANEL Lab Routine Antiphospholipid antibody positive Iron deficiency anemiasecondary to blood loss (chronic) Vitamin D deficiency Primary hypercoagulable state (HCC) Expected: 02/18/2025, Expires: 05/20/2025leveland ClinicComment on above:Expected: 02/18/2025, Expires: 05/20/2025Start: 02-16-2025 End: 98-48-5814Dihjyph encounter procedureProMedica Rheumatology, A Department of [facility] Hospitaltart: 53-12-2906Pxnnxjait for malignant neoplasm of cervixNOMS HealthcareStart: 02-09-2025 End: 53-87-0427CI biophysical profile w non stress testUS biophysical profile w non stress test Imaging Routine Third trimester (HHS-HCC) 28 weeks gestation of (HHS-HCC) Anemia complicating childbirth (HHS-HCC) Anticoagulant long-term use Antiphospholipid antibody positive Blood pressure elevated without history of HTN Coagulation defect, unspecified (HHS-HCC) Expected: 02/09/2025 (Approximate), Expires: 08/10/2025 NOMS HealthcareComment on above:Expected: 02/09/2025 (Approximate), Expires: 08/10/2025Start: 02-09-2025 End: 64-58-3955LT for pregnancyUS OB follow up transabdominal approach Imaging Routine Third trimester (HHS-HCC) 28 weeks gestation of (HHS-HCC) Anemia complicating childbirth (HHS-HCC) Anticoagulant long-term use Antiphospholipid antibody positive Blood pressure elevated without history of HTN Coagulation defect, unspecified (HHS-HCC) Expected: 02/09/2025, Expires: 06/12/2025NOMS HealthcareComment on above:Expected: 02/09/2025, Expires: 06/12/2025Start: 02-09-2025 End: 55-74-3487Dywsxmv encounter wlicxvpjt11/13/2025 10:30 AM EDT Routine SHILOH COLVIN [address] [facility] [place] [address] Wilton Herrmann DO [address] [place] [address] SHILOH HAMILTONtart: 02-06-2025 End: 84-40-9463Aawlxqeeokrj consultation with mftzxkx5402/06/2025 2:00 PM EDT Telemedicine Maternal- Medicine at [facility] [address] [place] [address] Mukul Noyola MD [address] [facility], [address] [place] [address] [facility]: 02-05-2025 End: 01-21-8992Egwjxji encounter bourkpyvy74/09/2025 1:00 PM EDT Appointment [facility] [place] [address] [facility] [address] [place] [address] Maternal Medicine [place]acoStart: 02-01-2025 End: 72-38-7711Xmvn complete W/O contrastEcho complete W/O contrast Echocardiography Routine 22 weeks gestation of Antiphospholipid syndrome complicating , antepartum Multigravida of advanced maternal age in second trimester Expected: 02/01/2025 (Approximate), Expires: 01/01/2026 [facility] Work Phone: comment on above:Expected: 02/01/2025 (Approximate), Expires: 01/01/2026Start: 01-19-2025 End: 26-45-6102Jxsiuat encounter myanszmcs71/22/2025 9:00 AM EDT Routine NOMJaylan COLVIN [address] [address] [place], [id number] Wilton Herrmann DO [address] [facility] [place] [address] SHILOH HAMILTONtart: 01-13-2025 End: 56-78-3491Jrhyctbahnjp consultation with skllkan2101/13/2025 10:00 AM EDT Telemedicine Maternal- Medicine at [facility] [address] [place] [facility] [place] [address] Roxana Mays, PAPilyC [address] [place] [address], [id number] [facility] 01-05-2025 End: 44-27-7424Tvbgmxj encounter lvptoxzda01/08/2025 2:40 PM EDT Routine [facility] [address] [place], [id number] Wilton Herrmann DO [address] [place] [address] [facility] OBGYNStart: 01-05-2025 End: lead ECGECG 12 lead unit performed ECG Routine Thyroid disease Gestational diabetes mellitus (GDM), antepartum, gestational diabetes method of control unspecified (HHS-HCC) Multigravida of advanced maternal age in second trimester (HHS-HCC) Lightheaded Dizziness Expected: 01/05/2025 (Approximate), Expires:01/05/2026[facility] HealthcareComment on above:Expected: 01/05/2025 (Approximate), Expires: 01/05/2026Start: 01-05-2025 End: 01-20-7882Tpfidttuwkxfmt 2D completeEchocardiogram 2D complete Echocardiography Routine Thyroid disease Gestational diabetes mellitus (GDM), antepartum, gestational diabetes method of control unspecified (HHS-HCC) Multigravida of advanced maternal age in second trimester (HHS-HCC) Lightheaded Dizziness Expected: 01/05/2025 (Approximate), Expires: 01/05/2027[facility] Work Phone: comment on above:Expected: 01/05/2025 (Approximate), Expires: 01/05/2027Start: 01-01-2025 End: 17-20-7126Dwmhaeisbrxd consultation with tyfmwzw1301/01/2025 2:30 PM EDT Telemedicine [facility] [place] [address] [facility] [address] [place] [phone] Mukul Noyola MD [address] [facility], [address] [place] [address] [facility] [place]: 01-01-2025 End: 88-19-6545ZH MFM with or without consultUS MFM with [...] on above:Expected: 01/01/2025, Expires: 01/01/2026Start: 01-01-2025 End: 70-34-5333Dwqddai encounter nyoxssweb28/04/2025 1:00 PM EDT Appointment [facility] [place] [address] [address] [facility] [place]: 12-29-2024 COVID-19 Vaccine ( season)COVID-19 Vaccine ( season)[facility]Start: 55-15-9247Resajpxmn vaccinationOhio State Health Systemtart: 12-24-2024 End: 34-49-0384TOI W Auto Differential panel - BloodCOMPLETE BLOOD COUNT AND DIFFERENTIAL Lab Routine Primary hypercoagulable state (HCC) CVA, old, spee ch/language deficit Cerebral hyponatremia Personal history of TIA (transient ischemic attack) Expected: 12/24/2024, Expires: 03/25/2025[facility] Work Phone: Comment on above:Expected: 12/24/2024, Expires: 03/25/2025Start: 12-24-2024 End: 97-92-3707Ghwmtoukp (Vitamin B12) [Mass/volume] in Serum or PlasmaVITAMIN B12 Lab Routine Primary hypercoagulable state (HCC) CVA, old, speech/language deficit Cerebral hyponatremia Personal history of TIA (transient ischemic attack) Expected: 12/24/2024, Expires: 03/25/2025[facility] ClinicComment on above:Expected: 12/24/2024, Expires: 03/25/2025Start: 12-24-2024 End: 48-98-7605Aizveafzxmvjz metabolic 2000 panel - Serum or PlasmaCOMPREHENSIVE METABOLIC PANEL Lab Routine Primary hypercoagulable state (HCC) CVA, old, speech/language deficit Cerebral hyponatremia Personal history of TIA (transient ischemic attack) Expected: 12/24/2024, Expires: 03/25/2025[facility] Comment on above:Expected: 12/24/2024, Expires: 03/25/2025Start: 12-24-2024 End: 21-88-0517Avjsyaai [Mass/volume] in Serum or PlasmaFERRITIN Lab Routine Primary hypercoagulable state (HCC) CVA, old, speech/language deficit Cerebral hyponatremia Personal history of TIA (transient ischemic attack) Expected: 12/24/2024, Expires: 03/25/2025[facility] ClinicComment on above:Expected: 12/24/2024, Expires: 03/25/2025Start: 12-24-2024 End: 09-83-0654Hxaf and Iron binding capacity panel - Serum or PlasmaIRON AND TIBC Lab Routine Primary hypercoagulable state (HCC) CVA, old, speech/language deficit Cerebral hyponatremia Personal history of TIA (transient ischemic attack) Expected: 12/24/2024, Expires: 03/25/2025[facility] ClinicComment on above:Expected: 12/24/2024, Expires: 03/25/2025Start: 12-23-2024 End: 595341-mfqpywyxawaqyl D3 [Mass/volume] in Serum or PlasmaVITAMIN D 25 HYDROXY Lab Routine 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) Vitamin D deficiency Expected: 12/23/2024, Expires: 03/24/2025[facility] Work Phone: Comment on above:Expected: 12/23/2024, Expires: 03/24/2025Start: 12-22-2024 End: 99-29-0492Ajpyxy-up xzaonuxmf97/25/2025 1:30 PM EDT Visit (SP) Office Hematology/Oncology [address] [place], [place] [phone] Katherine Negrete BARRATTE OPERATOR.TANK TESTER [address] [address] 8 week follow up labHematology/OncologyComment on above:8 week follow up labStart: 12-22-2024 End: 45-01-1104Yeicxoy encounter fmeegthfu71/25/2025 1:15 PM EDT Office Visit [facility] [address] [place], [place] [address] [address] 8 week follow up labNortSelect Specialty Hospital-Pontiac LaboratoryComment on above:8 week follow up labStart: 12-17-2024 End: 95-51-4271Meqyinvnqpba consultation with nnqnoyk6112/17/2024 1:30 PM EDT Telemedicine Maternal- Medicine at [facility] [address] [place] [address] Alisa Saba, BARRATTE OPERATOR-TANK TESTER [address] [place] [address] [facility]: 12-11-2024 End: 22-60-2606Rwgsuyh encounter qewqihljj55/14/2025 9:10 AM EDT Routine [facility] Piyush COLVIN [address] [phone] Wilton Herrmann DO [address] [place] [address] [facility] Piyush ROBBGYNStart: 12-03-2024 End: 06-52-3737Fihvcfppzszv consultation with htfypgv3712/03/2024 2:00 PM EDT Telemedicine Maternal- Medicine at [facility] [address] [place] [phone] Alisa Saba, VICTOR HUGO-TANK TESTER [address] [place] [address] [facility]: 11-20-2024 End: 65-63-4038Tcrzf fetoprotein, maternalAlpha fetoprotein, maternal Lab Routine Second trimester ([facility]) Expected: 11/20/2024 (Approximate), Expires: 01/21/2025NOMS HealthcareComment on above:Expected: 11/20/2024 (Approximate), Expires: 01/21/2025Start: 11-20-2024 End: 63-19-4602Vebhkgp encounter stjkbcjhy41/24/2025 10:10 AM EDT Routine [facility] BCP OB [address] [facility] [place] [address] Wilton Herrmann, DO [address] [facility] [place] [address] [facility] BCP OBStart: 11-19-2024 End: 18-11-6490npxvomhwdz57/23/2025 9:30 AM EDT Support Visit Maternal- Medicine at [facility] [address] [place] [phone] Lorena Enciso, RN [address] [facility], [address] [place] [address], [place] [address] Stephanie Quiros LD Fischer, Kelli, JERONIMO [address] [facility] [place], [address] [place] [address] [facility]: 11-12-2024 End: 79-21-9856LB MFM with or without consultUS MFM with or without consult Imaging Routine Gestational diabetes mellitus (GDM), antepartum, gestational diabetes method of control unspecified Expected: 11/12/2024 (Approximate), Expires: 10/13/2025[facility] Work Phone: comment on above:Expected: 11/12/2024 (Approximate), Expires: 10/13/2025Start: 10-30-2024 End: 46-34-2681Xuficcp encounter nfkwcymmq79/03/2025 10:40 AM EDT Routine [facility] BCP OB [address] [facility] [place] [phone] Wilton Herrmann, DO [address] [place] [address] [facility] BCP OBStart: 10-30-2024 End: 35-76-4617Hwubuad encounter ktmnukszm02/03/2025 9:30 AM EDT Routine [facility] BCP OB [address] [place] [address] Wilton Herrmann, DO [address] [place] [address] ArrivedNOMS BCP OBComment on above: ArrivedStart: 10-28-2024 End: 56-33-8943Xuazqk-up jnmsvfosa85/01/2025 2:30 PM EDT Visit (SP) Office Hematology/Oncology [address] [place], [place] [phone] Katherine Negrete, BARRATTE OPERATOR.TANK TESTER [address] [place] [address] 3 month follow upHematology/OncologyComment on above:3 month follow upStart: 10-28-2024 End: 78-21-8924Ztvbqsz encounter ztfbvxcio87/01/2025 2:15 PM EDT Office Visit [facility] [address] [place] [address] labs - patient prefers to come same dayNortBerwick [facility] Center [facility] LaboratoryComment on above:labs - patient prefers to come same day Start: 10-27-2024 End: 48-98-6346Rxnuhnn encounter mjtbnqpij57/30/2025 9:20 AM EDT Office Visit [facility] OB [address] [facility] [place] [address] Wilton Herrmann, DO [address] [facility] [place] [address] [facility] OBStart: 10-20-2024 End: 81-47-7441Mnoqgelwtpyy / ancillary services vhkukbxdjs63/23/2025 1:00 PM EDT Ancillary Procedure [facility] OB [address] [facility] [place] [address] [facility] BCP OBStart: 10-10-2024 End: 34-18-1625Owwcou-up cljsvupki17/13/2025 10:40 AM EDT Visit (SP) Office Hematology/Oncology [address] [address] Kristofer Calix MD [address] [address] 3 month follow upHematology/OncologyComment on above:3 month follow upStart: 10-10-2024 End: 68-83-1217Fgdbiip encounter azsxuykkp93/13/2025 10:15 AM EDT Office Visit [facility] [address] [address] labs - patient prefers to come same daySouth [facility] Hospital LaboratoryComment on above:labs - patient prefers to come same day Start: 10-02-2024 End: 36-60-3622HMW/RhABO/Rh Lab Routine Missed menses , unspecified gestational age Expected: 10/02/2024 (Approximate), Expires: 10/02/2025NOMS HealthcareComment on above:Expected: 10/02/2024 (Approximate), Expires: 10/02/2025Start: 10-02-2024 End: 22-63-8121Bvmaf type and Indirect antibody screen panel - BloodType and screen Lab Routine Missed menses , unspecified gestational age Expected: 10/02/2024 (Approximate), Expires: 10/02/2025[facility] Work Phone: comment on above:Expected: 10/02/2024 (Approximate), Expires: 10/02/2025Start: 10-02-2024 End: 02-45-8257Iaoko of abuse panel - Urine by Screen methodRapid drug screen, urine Lab Routine , unspecified gestational age Encounter for supervision of normal first in first trimester Expected: 10/02/2024 (Approximate), Expires: 10/02/2025NOMS HealthcareComment on above:Expected: 10/02/2024 (Approximate), Expires: 10/02/2025Start: 10-02-2024 End: 90-87-5146sxnumjisud44/05/2025 1:00 PM EDT Initial [facility] OB [facility] [place] [address] AFEU BCP OBStart: 10-02-2024 End: 69-66-6509Kuhghfureudr / ancillary services dmtlriyogh03/05/2025 12:30 PM EDT Ancillary Procedure [facility] OB [facility] [address] [place], [place] [address] KHRL BCP OBStart: 08-27-2024 End: 49-13-0396Yqiegd-up yguwjpwra33/30/2025 2:00 PM EDT Visit (SP) Office Hematology/Oncology [address] [place] [address] [place], [place] [phone] Kristofer Calix MD [address] [place] [address] 3 month follow upHematology/OncologyComment on above:3 month follow upStart: 08-27-2024 End: 16-89-6580Jrofgow encounter quooyyedh05/30/2025 1:45 PM EDT Office Visit [facility] [address] [place] [address] labs - patient prefers to come same daySouth [facility] LaboratoryComment on above:labs - patient prefers to come same day Start: 08-26-2024 End: 638288-qwzfmvaettuhjp D3 [Mass/volume] in Serum or PlasmaVITAMIN D 25 HYDROXY Lab Routine 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 Vitamin D deficiency Expected: 08/26/2024, Expires: 11/25/2024[facility] ClinicComment on above: Expected: 08/26/2024, Expires: 11/25/2024Start: 08-26-2024 End: 22-59-5792YCM W Auto Differential panel - BloodCOMPLETE BLOOD COUNT AND DIFFERENTIAL Lab Routine 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 Vitamin D deficiency Expected: 08/26/2024, Expires: 11/25/2024[facility] Work Phone: Comment on above:Expected: 08/26/2024, Expires: 11/25/2024Start: 08-26-2024 End: 37-77-0941Fwlleyhma (Vitamin B12) [Mass/volume] in Serum or PlasmaVITAMIN B12 Lab Routine 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 Vitamin D deficiency Expected: 08/26/2024, Expires: 11/25/2024[facility] ClinicComment on above: Expected: 08/26/2024, Expires: 11/25/2024Start: 08-26-2024 End: 18-19-4711Ggfkljkiiylij metabolic 2000 panel - Serum or PlasmaCOMPREHENSIVE METABOLIC PANEL Lab Routine Antiphospholipid antibody positive Iron deficiency anemiasecondary to blood loss (chronic) Malaise and fatigue Vitamin D deficiency Expected: 08/26/2024, Expires: 11/25/2024[facility] ClinicComment on above: Expected: 08/26/2024, Expires: 11/25/2024Start: 08-26-2024 End: 39-50-0863Haxywryd [Mass/volume] in Serum or PlasmaFERRITIN Lab Routine 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) Malaise and fatigue Vitamin D deficiency Expected: 08/26/2024, Expires: 11/25/2024[facility] ClinicComment on above:Expected: 08/26/2024, Expires: 11/25/2024Start: 08-26-2024 End: 55-46-4127Hivl and Iron binding capacity panel - Serum or PlasmaIRON AND TIBC Lab Routine 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 Vitamin D deficiency Expected: 08/26/2024, Expires: 11/25/2024[facility] ClinicComment on above: Expected: 08/26/2024, Expires: 11/25/2024Start: 08-26-2024 End: 02-01-7459Icjoehjkeah [Units/volume] in Serum or PlasmaTHYROID STIMULATING HORMONE Lab Routine Antiphospholipid antibody positive 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) Malaise and fatigue Vitamin D deficiency Expected: 08/26/2024, Expires: 11/25/2024[facility] ClinicComment on above: Expected: 08/26/2024, Expires: 11/25/2024Start: 07-24-2024 End: 55-21-8922TqvcvpqoaonpBmgpccbwqgby Lab Routine Irregular menstrual cycle Expected: 07/24/2024 (Approximate), Expires: 07/24/2025[facility] Work Phone: comment on above:Expected: 07/24/2024 (Approximate), Expires: 07/24/2025Start: 71-79-6546LAzM,Tdap and Td Vaccines (2 - Td or Tdap) DTaP,Tdap and Td Vaccines (2 - Td or Tdap)[facility] Medical CenterSnapbridge Software SystemStart: 92-43-4191IEdS/Tdap/Td vaccine (2 - Td or Tdap)DTaP/Tdap/Td vaccine (2 - Td or Tdap)[facility]ITALStart: 41-16-1127Huxqy microalbumin profile [facility] Systemtart: 06-23-2024 End: 37-75-2443ZT PelvisUS Pelvis w/ TV Imaging Routine Vaginal bleeding Vaginal discharge Pelvic pain in female Expected: 06/23/2024, Expires: 06/23/2025[facility] HealthcareComment on above:Expected: 06/23/2024, Expires: 06/23/2025Start: 06-02-2024 End: 55-08-9174Nldljyp encounter pdganyksv94/03/2025 11:20 AM EST Office Visit [facility] BCP OB [address] [facility] [place] [phone] Wilton Herrmann, [address] [place] [address] [facility] BCP OBStart: 05-21-2024 End: 42-81-1290Bqfuck-up jjercyinx72/22/2025 2:20 PM EST Visit (SP) Office Hematology/Oncology [address] [place], [place] [phone] Kristofer Calix MD [address] [address] 3 month follow up with labHematology/OncologyComment on above:3 month follow up with labStart: 05-21-2024 End: 16-24-6776Pystnqj encounter wgfjeinaq78/22/2025 2:00 PM EST Office Visit [facility] [address] [place] [address] 3 month follow up with labNortSelect Specialty Hospital-[facility]ont[facility] LaboratoryComment on above:3 month follow up with labStart: 05-06-2024 End: 13-52-0982UU for pregnancyNOMS Healthcare Work Phone: comment on above:Expected: 05/06/2024, Expires: 05/06/2025Start: 05-06-2024 End: 44-07-1308Sitjgqb encounter fulkiukfs76/07/2025 1:50 PM EST Routine [facility] BCP OB [address] [facility] [place] [phone] Wilton Herrmann [address] [place] [address] [facility] BCP OBStart: 04-09-2024 End: 69-60-6410Zgzpgd-up encounterHematology/OncologyComment on above:3 month follow up with labStart: 04-09-2024 End: 47-96-6567Vzfvrhp encounter procedureSouth [facility] Memorial Hospital LaboratoryComment on above:3 month follow up with labStart: 04-04-2024 End: 01-72-5475LWP/RhABO/Rh Lab Routine Missed menses , unspecified gestational age Expected: 04/04/2024 (Approximate), Expires: 04/04/2025[facility] HealthcareComment on above:Expected: 04/04/2024 (Approximate), Expires: 04/04/2025Start: 04-04-2024 End: 72-19-8164Jswqx type and Indirect antibody screen panel - BloodType and screen Lab Routine Missed menses , unspecified gestational age Expected: 04/04/2024 (Approximate), Expires: 04/04/2025[facility] Work Phone: comment on above:Expected: 04/04/2024 (Approximate), Expires: 04/04/2025Start: 04-04-2024 End: 45-05-9772Jvnkc of abuse panel - Urine by Screen methodRapid drug screen, urine Lab Routine , unspecified gestational age Encounter for supervision of normal first in first trimester Expected: 04/04/2024 (Approximate), Expires: 04/04/2025[facility] HealthcareComment on above:Expected: 04/04/2024 (Approximate), Expires: 04/04/2025Start: 04-04-2024 End: 22-56-2494ZA Pelvis transvaginalUS OB transvaginal Imaging Routine Missed menses Expected: 04/04/2024 (Approximate), Expires: 04/04/2025[facility] Comment on above:Expected: 04/04/2024 (Approximate), Expires: 04/04/2025Start: 04-02-2024 End: 992904-udjgcrjafmtbfa D3 [Mass/volume] in Serum or PlasmaVITAMIN D 25 HYDROXY Lab Routine Iron deficiency anemia secondary to blood loss (chronic) Vitamin Ddeficiency Malaise and fatigue Expected: 04/02/2024 (Approximate), Expires: 07/02/2024[facility] ClinicComment on above:Expected: 04/02/2024 (Approximate), Expires: 07/02/2024Start: 04-02-2024 End: 78-69-5861SPJ W Auto Differential panel - BloodCOMPLETE BLOOD COUNT AND DIFFERENTIAL Lab Routine Iron deficiency anemia secondary to blood loss (ch ronic) Vitamin D deficiency Malaise and fatigue Expected: 04/02/2024 (Approximate), Expires: 01/01/2025[facility] ClinicComment on above:Expected: 04/02/2024 (Approximate), Expires: 01/01/2025Start: 04-02-2024 End: 12-74-3768Lxyvmqgyt (Vitamin B12) [Mass/volume] in Serum or PlasmaVITAMIN B12 Lab Routine Iron deficiency anemia secondary to blood loss (chronic) Vitamin D deficiency Malaise and fatigue Expected: 04/02/2024 (Approximate), Expires: 01/01/2025[facility] ClinicComment on above:Expected: 04/02/2024 (Approximate), Expires: 01/01/2025Start: 04-02-2024 End: 98-63-3557Fxcuzrzgapnft metabolic 2000 panel - Serum or PlasmaCOMPREHENSIVE METABOLIC PANEL Lab Routine Iron deficiency anemia secondary to blood loss (chronic) Vitamin D deficiency Malaise and fatigue Expected: 04/02/2024 (Approximate), Expires: 01/01/2025[facility] ClinicComment on above:Expected: 04/02/2024 (Approximate), Expires: 01/01/2025Start: 04-02-2024 End: 77-34-2710Japbgcbw [Mass/volume] in Serum or PlasmaFERRITIN Lab Routine Iron deficiency anemia secondary to blood loss (chronic) Vitamin D deficiency M alaise and fatigue Expected: 04/02/2024 (Approximate), Expires: 01/01/2025 [facility] CenterComment on above:Expected: 04/02/2024 (Approximate), Expires: 01/01/2025Start: 04-02-2024 End: 11-94-3758Piaeir [Mass/volume] in Serum or PlasmaFOLATE, SERUM Lab Routine Iron deficiency anemia secondary to blood loss (chronic) Vitamin D deficiency Malaise and fatigue Expected: 04/02/2024 (Approximate), Expires: 01/01/2025 [facility] CenterComment on above:Expected: 04/02/2024 (Approximate), Expires: 01/01/2025Start: 04-02-2024 End: 29-21-8153Qjsp and Iron binding capacity panel - Serum or PlasmaIRON AND TIBC Lab Routine Iron deficiency anemia secondary to blood loss (chronic) Vitamin D deficiency Malaise and fatigue Expected: 04/02/2024 (Approximate), Expires: 01/01/2025[facility] CenterComment on above:Expected: 04/02/2024 (Approximate), Expires: 01/01/2025Start: 04-02-2024 End: 90-53-6442Dykermniqzy [Units/volume] in Serum or PlasmaTHYROID STIMULATING HORMONE Lab Routine Iron deficiency anemia secondary to blood loss (chronic) Vit vogel D deficiency Malaise and fatigue Expected: 04/02/2024 (Approximate), Expires: 07/02/2024[facility] Work Phone: Comment on above:Expected: 04/02/2024 (Approximate), Expires: 07/02/2024Start: 01-05-2024 End: 03-45-3516ZTK W Auto Differential panel - BloodCOMPLETE BLOOD COUNT AND DIFFERENTIAL Lab Routine Iron deficiency anemia secondary to blood loss (ch ronic) Vitamin D deficiency Malaise and fatigue Expected: 01/05/2024 (Approximate), Expires: 01/01/2025[facility] ClinicComment on above:Expected: 01/05/2024 (Approximate), Expires: 01/01/2025Start: 01-05-2024 End: 73-59-8164Boxsibhdycdeb metabolic 2000 panel - Serum or PlasmaCOMPREHENSIVE METABOLIC PANEL Lab Routine Iron deficiency anemia secondary to blood loss (chronic) Vitamin D deficiency Malaise and fatigue Expected: 01/05/2024 (Approximate), Expires: 5[facility] ClinicComment on above:Expected: 01/05/2024 (Approximate), Expires: 01/01/2025Start: 01-02-2024 End: 58-51-6064Vbsmpb-up ecthmuwdw80/04/2024 1:45 PM EDT Visit (SP) Office Hematology/Oncology [address] [place], [place] [phone] Kristofer Calix MD [address] [address] 8 WEEK FOLLOW UPHematology/OncologyComment on above:8 WEEK FOLLOW UPStart: 01-02-2024 End: 45-60-2991Lhtzewb encounter wryakitkg55/04/2024 1:30 PM EDT Office Visit [facility] [address] [place] [address] 8 WEEK FOLLOW UPNortSelect Specialty Hospital-[facility]ontiac LaboratoryComment on above:8 WEEK FOLLOW UPStart: 46-22-0472Miytn-19 Vaccine ( season)Covid-19 Vaccine ( season)[facility] Systemtart: 92-33-2985Mpbff-19 Vaccine ( season)Covid-19 Vaccine ( season)[facility] Systemtart: 68-31-8927Oqiszgzrz vaccinationUniversity [facility]als [facility] Start: 11-29-2023 End: 65-68-2217cbyljlnoht29/01/2024 1:30 PM EDT Infusion Center Hematology/Oncology [address] [address] VENOFER 300Hematology/OncologyComment on above:VENOFER 300Start: 11-22-2023 End: 57-92-8760negfeewxgm17/25/2024 1:30 PM EDT Infusion Center Hematology/Oncology [address] [address] VENOFER 300Hematology/OncologyComment on above:VENOFER 300Start: 11-15-2023 End: 17-98-7135zhbxkjqymb31/18/2024 1:30 PM EDT Infusion Center Hematology/Oncology [address] [place] [address] [place] [address] VENOFER 300Hematology/OncologyComment on above:VENOFER 300Start: 09-13-2023 End: 35-94-767563276433-vtppapucsytjeo D3 [Mass/volume] in Serum or PlasmaVITAMIN D 25 HYDROXY Lab Routine Vitamin D deficiency 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) Expected: 09/13/2023 (Approximate), Expires: 12/13/2023[facility] Work Phone: Comment on above:Expected: 09/13/2023 (Approximate), Expires: 12/13/2023Start: 09-13-2023 End: 59-18-5228Rzephhi.ionized [Moles/volume] in BloodCALCIUM IONIZED BLOOD Lab Routine Vitamin D deficiency 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) Expected: 09/13/2023 (Approximate), Expires: 12/13/2023 [facility] Work Phone: Comment on above:Expected: 09/13/2023 (Approximate), Expires: 12/13/2023Start: 09-13-2023 End: 31-06-6225RJW W Auto Differential panel - BloodCBC + DIFF Lab Routine Vitamin D deficiency 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) Expected: 09/13/2023 (Approximate), Expires: 06/15/2024[facility] Work Phone: Comment on above:Expected: 09/13/2023 (Approximate), Expires: 06/15/2024Start: 09-13-2023 End: 03-08-6932Uqnrdgffi (Vitamin B12) [Mass/volume] in Serum or PlasmaVITAMIN B12 BLOOD Lab Routine Vitamin D deficiency 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) Expected: 09/13/2023 (Approximate), Expires: 06/15/2024[facility] Work Phone: Comment on above:Expected: 09/13/2023 (Approximate), Expires: 06/15/2024Start: 09-13-2023 End: 47-78-7178Nvvyahkyyydqp metabolic 2000 panel - Serum or PlasmaCOMP METABOLIC PANEL Lab Routine Vitamin D deficiency 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) Expected: 09/13/2023 (Approximate), Expires: 06/15/2024[facility] Work Phone: Comment on above:Expected: 09/13/2023 (Approximate), Expires: 06/15/2024Start: 09-13-2023 End: 51-33-4100Bkbhbepg [Mass/volume] in Serum or PlasmaFERRITIN BLD Lab Routine Vitamin D deficiency 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) Expected: 09/13/2023 (Approximate), Expires: 06/15/2024[facility] Work Phone: Comment on above:Expected: 09/13/2023 (Approximate), Expires: 06/15/2024Start: 09-13-2023 End: 56-87-1890Nvuxdu [Mass/volume] in Serum or PlasmaFOLATE SERUM Lab Routine Vitamin D deficiency 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) Expected: 09/13/2023 (Approximate), Expires: 06/15/2024[facility] Work Phone: Comment on above:Expected: 09/13/2023 (Approximate), Expires: 06/15/2024Start: 09-13-2023 End: 41-55-1145Abir and Iron binding capacity panel - Serum or PlasmaIRON + TIBC Lab Routine Vitamin D deficiency 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) Expected: 09/13/2023 (Approximate), Expires: 06/15/2024 [facility] Work Phone: Comment on above:Expected: 09/13/2023 (Approximate), Expires: 06/15/2024Start: 09-13-2023 End: 07-02-7292Dgfmpsecng.intact [Mass/volume] in Serum or PlasmaPTH INTACT BLD Lab Routine Vitamin D deficiency 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) Expected: 09/13/2023 (Approximate), Expires: 12/13/2023 [facility] Work Phone: Comment on above:Expected: 09/13/2023 (Approximate), Expires: 12/13/2023Start: 06-15-2023 End: 396156-wwujojqvketoly D3 [Mass/volume] in Serum or PlasmaVITAMIN D 25 HYDROXY Lab Routine Vitamin D deficiency Expected: 06/15/2023 (Approximate), Expires: 09/14/2023[facility] Work Phone: Comment on above:Expected: 06/15/2023 (Approximate), Expires: 09/14/2023Start: 06-15-2023 End: 07-79-2747Btlfbhf.ionized [Moles/volume] in BloodCALCIUM IONIZED BLOOD Lab Routine Vitamin D deficiency Hypercalcemia Expected: 06/15/2023 (Approximate), Expires: 09/14/2023[facility] Work Phone: Comment on above:Expected: 06/15/2023 (Approximate), Expires: 09/14/2023Start: 06-15-2023 End: 03-86-9069SXQ W Auto Differential panel - BloodCBC + DIFF Lab Routine Iron deficiency anemia secondary to blood loss (chronic) Expected: 06/15/2023 (Approximate), Expires: 06/12/2024[facility] Work Phone: Comment on above:Expected: 06/15/2023 (Approximate), Expires: 06/12/2024Start: 06-15-2023 End: 73-49-5925Ufjrdyqyo (Vitamin B12) [Mass/volume] in Serum or PlasmaVITAMIN B12 BLOOD Lab Routine Iron deficiency anemia secondary to blood loss (chronic) Expected: 06/15/2023 (Approximate), Expires: 06/12/2024[facility] Work Phone: Comment on above:Expected: 06/15/2023 (Approximate), Expires: 06/12/2024Start: 06-15-2023 End: 19-12-4636Yzhevmbkbynqi metabolic 2000 panel - Serum or PlasmaCOMP METABOLIC PANEL Lab Routine Iron deficiency anemia secondary to blood loss (chronic) Expected:06/15/2023 (Approximate), Expires: 06/12/2024[facility] Work Phone: Comment on above:Expected: 06/15/2023 (Approximate), Expires: 06/12/2024Start: 06-15-2023 End: 50-05-7887Mgbjvnhv [Mass/volume] in Serum or PlasmaFERRITIN BLD Lab Routine Iron deficiency anemia secondary to blood loss (chronic) Expected: 06/15/2023 (Approximate), Expires: 06/12/2024[facility] Work Phone: Comment on above:Expected: 06/15/2023 (Approximate), Expires: 06/12/2024Start: 06-15-2023 End: 85-17-9163Mcoxjz [Mass/volume] in Serum or PlasmaFOLATE SERUM Lab Routine Iron deficiency anemia secondary to blood loss (chronic) Expected: 06/15/2023 (Approximate), Expires: 06/12/2024[facility] Work Phone: Comment on above:Expected: 06/15/2023 (Approximate), Expires: 06/12/2024Start: 06-15-2023 End: 58-80-6103Rspw and Iron binding capacity panel - Serum or PlasmaIRON + TIBC Lab Routine Iron deficiency anemia secondary to blood loss (chronic) Expected: 06/15/2023 (Approximate), Expires: 06/12/2024[facility] Work Phone: Comment on above:Expected: 06/15/2023 (Approximate), Expires: 06/12/2024Start: 06-15-2023 End: 75-43-3813MLJ, INTACT (WITHOUT CALCIUM)PTH, INTACT (WITHOUT CALCIUM) Lab Routine Vitamin D deficiency Hypercalcemia Expected: 06/15/2023 (Approximate), Expires: 09/14/2023[facility] Work Phone: Comment on above:Expected: 06/15/2023 (Approximate), Expires: 09/14/2023Start: 06-15-2023 End: 63-71-7535Jkvhcqoitol [Units/volume] in Serum or PlasmaTSH BLD Lab Routine Malaise and fatigue Expected: 06/15/2023 (Approximate), Expires: 09/14/2023 [facility] Work Phone: Comment on above:Expected: 06/15/2023 (Approximate), Expires: 09/14/2023Start: 06-14-2023 End: 905468-uavdpfpbvzvxfg D3 [Mass/volume] in Serum or PlasmaVITAMIN D 25 HYDROXY Lab Routine Hypercalcemia Vitamin D deficiency Expected: 06/14/2023 (Approximate), Expires: 09/13/2023[facility] Work Phone: Comment on above:Expected: 06/14/2023 (Approximate), Expires: 09/13/2023Start: 06-14-2023 End: 57-44-5447Uabofyl.ionized [Moles/volume] in BloodCALCIUM IONIZED BLOOD Lab Routine Hypercalcemia Vitamin D deficiency Expected: 06/14/2023 (Approximate), Expires: 09/13/2023[facility] Work Phone: Comment on above:Expected: 06/14/2023 (Approximate), Expires: 09/13/2023Start: 06-14-2023 End: 20-01-9817POO, INTACT (WITHOUT CALCIUM)PTH, INTACT (WITHOUT CALCIUM) Lab Routine Hypercalcemia Vitamin D deficiency Expected: 06/14/2023 (Approximate), Expires: 09/13/2023[facility] Work Phone: Comment on above:Expected: 06/14/2023 (Approximate), Expires: 09/13/2023Start: 06-14-2023 End: 61-07-7468Vilnagvrvck [Units/volume] in Serum or PlasmaTSH BLD Lab Routine Hypercalcemia Malaise and fatigue Expected: 06/14/2023 (Approximate), Expires: [address] [place] [address] Work Phone: Comment on above:Expected: 06/14/2023 (Approximate), Expires: 09/13/2023Start: 05-14-2023 End: 32-29-5764XTB W Auto Differential panel - BloodCBC + DIFF Lab Routine Primary hypercoagulable state (HCC) Iron deficiency anemia secondary to blood loss (chronic) Vitamin D deficiency CVA, old, 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) Expected: 05/14/2023 (Approximate), Expires: 03/19/2024[facility] Work Phone: Comment on above:Expected: 05/14/2023 (Approximate), Expires: 03/19/2024Start: 05-14-2023 End: 40-71-6165Gygxdufni (Vitamin B12) [Mass/volume] in Serum or PlasmaVITAMIN B12 BLOOD Lab Routine Primary hypercoagulable state (HCC) Iron deficiency anemia secondary to blood loss (chronic) Vitamin D deficiency CVA, old, 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) Expected: 05/14/2023 (Approximate), Expires: 03/19/2024[facility] Work Phone: Comment on above:Expected: 05/14/2023 (Approximate), Expires: 03/19/2024Start: 05-14-2023 End: 58-06-6416Pdiodsgbuhmfd metabolic 2000 panel - Serum or PlasmaCOMP METABOLIC PANEL Lab Routine Primary hypercoagulable state (HCC) Iron deficiency anemia secondary to blood loss (chronic) Vitamin D deficiency CVA, old, 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) Expected: 05/14/2023 (Approximate), Expires: 03/19/2024[facility] Work Phone: Comment on above:Expected: 05/14/2023 (Approximate), Expires: 03/19/2024Start: 05-14-2023 End: 71-63-0703Vhmmtebb [Mass/volume] in Serum or PlasmaFERRITIN BLD Lab Routine Primary hypercoagulable state (HCC) Iron deficiency anemia secondary to blood loss (chronic) Vitamin D deficiency CVA, old, 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) Expected: 05/14/2023 (Approximate), Expires: 03/19/2024[facility] Work Phone: Comment on above:Expected: 05/14/2023 (Approximate), Expires: 03/19/2024Start: 05-14-2023 End: 81-75-2282Ungxhn [Mass/volume] in Serum or PlasmaFOLATE SERUM Lab Routine Primary hypercoagulable state (HCC) Iron deficiency anemia secondary to blood loss (chronic) Vitamin D deficiency CVA, old, 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) Expected: 05/14/2023 (Approximate), Expires: 03/19/2024[facility] Work Phone: Comment on above:Expected: 05/14/2023 (Approximate), Expires: 03/19/2024Start: 05-14-2023 End: 97-84-3345Csfs and Iron binding capacity panel - Serum or PlasmaIRON + TIBC Lab Routine Primary hypercoagulable state (HCC) Iron deficiency anemia secondary to blood loss (chronic) Vitamin D deficiency CVA, old, 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) Expected: 05/14/2023 (Approximate), Expires: 03/19/2024[facility] Work Phone: Comment on above:Expected: 05/14/2023 (Approximate), Expires: 03/19/2024Start: 78-23-9470Ppxbtmmfot Health ScreeningBehavioral Health ScreeningOhio State Health Systemtart: 57-86-3869Lgkhzetgek AssessmentDepression AssessmentOhio State Health Systemtart: 02-16-2023 End: 974632-qihhanonmmwnfh D3 [Mass/volume] in Serum or PlasmaVITAMIN D 25 HYDROXY Lab Routine Primary hypercoagulable state (HCC) Iron deficiency anemia secondary to blood loss (chronic) Vitamin D deficiency Expected: 02/16/2023 (Approximate), Expires: 04/18/2023[facility] Work Phone: Comment on above:Expected: 02/16/2023 (Approximate), Expires: 04/18/2023Start: 02-16-2023 End: 82-65-9631BKQ W Auto Differential panel - BloodCBC + DIFF Lab Routine Primary hypercoagulable state (HCC) Iron deficiency anemia secondary to blood loss (chronic) Expected: 02/16/2023 (Approximate), Expires: 12/23/2023[facility] Work Phone: Comment on above:Expected: 02/16/2023 (Approximate), Expires: 12/23/2023Start: 02-16-2023 End: 48-49-9564Lrerwbstp (Vitamin B12) [Mass/volume] in Serum or PlasmaVITAMIN B12 BLOOD Lab Routine Primary hypercoagulable state (HCC) Iron deficiency anemia secondary to blood loss (chronic) Expected: 02/16/2023 (Approximate), Expires: 12/23/2023[facility] Work Phone: Comment on above:Expected: 02/16/2023 (Approximate), Expires: 12/23/2023Start: 02-16-2023 End: 43-82-3355Ytpkhoxhviuui metabolic 2000 panel - Serum or PlasmaCOMP METABOLIC PANEL Lab Routine Primary hypercoagulable state (HCC) Iron deficiency anemia secondary to blood loss (chronic) Expected: 02/16/2023 (Approximate), Expires: 12/23/2023[facility] Work Phone: Comment on above:Expected: 02/16/2023 (Approximate), Expires: 12/23/2023Start: 02-16-2023 End: 44-92-0663Kkngesip [Mass/volume] in Serum or PlasmaFERRITIN BLD Lab Routine Primary hypercoagulable state (HCC) Iron deficiency anemia secondary to blood loss (chronic) Expected: 02/16/2023 (Approximate), Expires: 12/23/2023[facility] Work Phone: Comment on above:Expected: 02/16/2023 (Approximate), Expires: 12/23/2023Start: 02-16-2023 End: 28-13-2382Njxrzj [Mass/volume] in Serum or PlasmaFOLATE SERUM Lab Routine Primary hypercoagulable state (HCC) Iron deficiency anemia secondary to blood loss (chronic) Expected: 02/16/2023 (Approximate), Expires: 12/23/2023[facility] Work Phone: Comment on above:Expected: 02/16/2023 (Approximate), Expires: 12/23/2023Start: 02-16-2023 End: 60-40-4567Salj and Iron binding capacity panel - Serum or PlasmaIRON + TIBC Lab Routine Primary hypercoagulable state (HCC) Iron deficiency anemia secondary to blood loss (chronic) Expected: 02/16/2023 (Approximate), Expires: 12/23/2023[facility] Work Phone: Comment on above:Expected: 02/16/2023 (Approximate), Expires: 12/23/2023Start: 29-73-0440Eexzn-19 Vaccine ()Covid- 19 Vaccine ()[facility]: 03-29-1313Cxkbqwosx vaccinationOhio State Health Systemtart: 55-56-0347FFJ TESTINGPAP TESTINGOhio State Health Systemtart: 45-97-1803Ojqzfocnu for malignant neoplasm of cervixPap Testing [facility]: 11-28-2022 End: 41-70-0738SVU W Auto Differential panel - BloodCBC + DIFF Lab Routine Primary hypercoagulable state (HCC) CVA, old, speech/language deficit Cerebral hyponatremia Expected: 11/28/2022 (Approximate), Expires: 10/04/2023[facility] Work Phone: Comment on above:Expected: 11/28/2022 (Approximate), Expires: 10/04/2023Start: 11-28-2022 End: 60-56-9408Msmlvncdq (Vitamin B12) [Mass/volume] in Serum or PlasmaVITAMIN B12 BLOOD Lab Routine Primary hypercoagulable state (HCC) CVA, old, speech/language deficitCerebral hyponatremia Expected: 11/28/2022 (Approximate), Expires: 06/06/[address] [place] [address] Work Phone: Comment on above:Expected: 11/28/2022 (Approximate), Expires: 10/04/2023Start: 11-28-2022 End: 31-70-2384Ammhkkxhmkjih metabolic 2000 panel - Serum or PlasmaCOMP METABOLIC PANEL Lab Routine Primary hypercoagulable state (HCC) CVA, old, speech/language deficit Cerebral hyponatremia Expected: 11/28/2022 (Approximate), Expires: [address] [place] [address] Work Phone: Comment on above:Expected: 11/28/2022 (Approximate), Expires: 10/04/2023Start: 11-28-2022 End: 44-53-6353Fbjwkape [Mass/volume] in Serum or PlasmaFERRITIN BLD Lab Routine Primary hypercoagulable state (HCC) CVA, old, speech/language deficit Cerebral hyponatremia Expected: 11/28/2022 (Approximate), Expires: 10/04/2023[facility] Work Phone: Comment on above:Expected: 11/28/2022 (Approximate), Expires: 10/04/2023Start: 11-28-2022 End: 03-93-8365Bgunhb [Mass/volume] in Serum or PlasmaFOLATE SERUM Lab Routine Primary hypercoagulable state (HCC) CVA, old, speech/language deficit Cerebral hyponatremia Expected: 11/28/2022 (Approximate), Expires: 10/04/2023[facility] Work Phone: Comment on above:Expected: 11/28/2022 (Approximate), Expires: 10/04/2023Start: 11-28-2022 End: 69-32-6993Fngf and Iron binding capacity panel - Serum or PlasmaIRON + TIBC Lab Routine Primary hypercoagulable state (HCC) CVA, old, speech/language deficit Cerebral hyponatremia Expected: 11/28/2022 (Approximate), Expires: [address] [place] [address] Work Phone: Comment on above:Expected: 11/28/2022 (Approximate), Expires: 10/04/2023Start: 09-21-2022 End: 40-25-7072OTJ W Auto Differential panel - BloodCBC + DIFF Lab Routine Primary hypercoagulable state (HCC) 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, old, speech/language deficit Expected: 09/21/2022 (Approximate), Expires: 07/28/2023[facility] Work Phone: Comment on above:Expected: 09/21/2022 (Approximate), Expires: 07/28/2023Start: 09-21-2022 End: 20-31-5876Vgslljkpm (Vitamin B12) [Mass/volume] in Serum or PlasmaVITAMIN B12 BLOOD Lab Routine Primary hypercoagulable state (HCC) 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, old, speech/language deficit Expected: 09/21/2022 (Approximate), Expires: 07/28/2023[facility] Work Phone: Comment on above:Expected: 09/21/2022 (Approximate), Expires: 07/28/2023Start: 09-21-2022 End: 76-65-8652Emeolkeodcqun metabolic 2000 panel - Serum or PlasmaCOMP METABOLIC PANEL Lab Routine Primary hypercoagulable state (HCC) 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, old, speech/language deficit Expected: 09/21/2022 (Approximate), Expires: 07/28/2023[facility] Work Phone: Comment on above:Expected: 09/21/2022 (Approximate), Expires: 07/28/2023Start: 09-21-2022 End: 04-30-9857Qgekmlde [Mass/volume] in Serum or PlasmaFERRITIN BLD Lab Routine Primary hypercoagulable state (HCC) 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, old, speech/language deficit Expected: 09/21/2022 (Approximate), Expires: 07/28/2023[facility] Work Phone: Comment on above:Expected: 09/21/2022 (Approximate), Expires: 07/28/2023Start: 09-21-2022 End: 66-23-9636Xgjwvi [Mass/volume] in Serum or PlasmaFOLATE SERUM Lab Routine Primary hypercoagulable state (HCC) 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, old, speech/language deficit Expected: 09/21/2022 (Approximate), Expires: 07/28/2023[facility] Work Phone: Comment on above:Expected: 09/21/2022 (Approximate), Expires: 07/28/2023Start: 09-21-2022 End: 18-21-4823Zmpv and Iron binding capacity panel - Serum or PlasmaIRON + TIBC Lab Routine Primary hypercoagulable state (HCC) 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, old, speech/language deficit Expected: 09/21/2022 (Approximate), Expires: 07/28/2023[facility] Work Phone: Comment on above:Expected: 09/21/2022 (Approximate), Expires: 07/28/2023Start: 00-25-2626ERWERJPZPS ASSESSMENTDEPRESSION ASSESSMENT [facility]: 01-30-2022 End: 32-79-7876Bzdjavms [Mass/volume] in Serum or PlasmaFERRITIN BLD Lab Routine Anemia, unspecified type Expected: 01/30/2022, Expires: 01/30/2023[facility] Work Phone: Comment on above:Expected: 01/30/2022, Expires: 01/30/2023Start: 01-30-2022 End: 97-57-2794Avto and Iron binding capacity panel - Serum or PlasmaIRON + TIBC Lab Routine Anemia, unspecified type Expected: 01/30/2022, Expires: 01/30/2023 [facility] Work Phone: Comment on above:Expected: 01/30/2022, Expires: 01/30/2023Start: 12-61-4387Kukvtsekq vaccinationOhio State Health Systemtart: 12-29-2021 End: 75-65-3813Ijnbqrz encounter /01/2022 [facility] Maternal MedStart: 37-42-2056PJBXKUZZHR ASSESSMENTDEPRESSION ASSESSMENTOhio State Health Systemtart: 16-92-3569Jzrvh depression screening assessmentDEPRESSION SCREENINGOhio State Health Systemtart: 12-04-2020 Screening for malignant neoplasm of cervixCervical Cancer ScreeningOhio State Health Systemtart: 13-88-9133Fquzkyjn screenDiabetes screenINOVA [facility] Start: 65-62-0851WQO TESTINGHPV TESTINGOhio State Health Systemtart: 10-22-2015 Screening for malignant neoplasm of cervixINOVA MOUNT VERNON [facility]OS[facility]ITALStart: 89-77-1507SJL Vaccine (1 - 3-dose SCDM series)HPV Vaccine (1 - 3-dose SCDM series)[facility]: 73-30-3489XVH Vaccines (1 - 3-dose SCDM series)HPV Vaccines (1 - 3-dose SCDM series)[facility]Start: 43-94-6007Wgfcproxw for malignant neoplasm of cervixPap smearINOVA MOUNT VERNON HOSPITALStart: 2004 DTaP,Tdap and Td Vaccines (1 - Tdap)DTaP,Tdap and Td Vaccines (1 - Tdap) [facility]: 57-20-1274Omitoqqnf B Vaccine (1 of 3 - 19+ 3-dose series)Hepatitis B Vaccine (1 of 3 - 19+ 3-dose series)[facility]: 25-18-8160Mrifxcnss B Vaccines (1 of 3 - 19+ 3-dose series)Hepatitis B Vaccines (1 of 3 - 19+ 3-dose series)[facility] HealthcareStart: 48-16-0459Seooh BMI Follow Up PlanAdult BMI Follow Up PlanDuke Healthtart: 90-14-6470Ermly BMI ScreeningAdult BMI ScreeningDuke Healthtart: 85-94-0465Zccdblo ScreeningAnxiety ScreeningOhio State Health Systemtart: 10-94-3490Umuvnatgpk Screening Depression ScreeningOhio State Health Systemtart: 54-34-8901UKCOIGQLP C SCREENING HEPATITIS C SCREENINGOhio State Health Systemtart: 08-61-5701Bcrljklxa C screeningINOVA MOUNT VERNON [facility]OSPITALStart: 00-44-2511RCV SCREENINGHIV SCREENINGUniversity [facility] Start: 97-43-6889HTJ screeningHIV ScreeningOhio State Health Systemtart: 1998 History of varicella vaccinationVaricella Vaccines (1 of 2 - 13+ 2-dose series) [facility] HospitalStart: 61-71-9838Ktzpsgczjl ScreenDepression ScreenBON [facility] Centerart: 04-26-5031Uccnkbjwno ScreeningDepression ScreeningProMemorial Health Systemtart: 62-76-0764Eoycekl ScreeningTobacco ScreeningDuke Healthtart: 33-35-3302GZpC/Tdap/Td Vaccines (1 - Tdap)DTaP/Tdap/Td Vaccines (1 - Tdap)[facility] HospitalStart: 47-71-8551VWEBJ-19 VACCINE (#1)COVID-19 VACCINE (#1)[facility]: 82-32-8209HUAMD-19 VACCINE (1)COVID-19 VACCINE (1) [facility]: 46-38-8277APD Vaccines (1 of 1 - Standard series)MMR Vaccines (1 of 1 - Standard series)[facility] HospitalStart: 80-56-7835Qhjcaczbm vaccine (1 of 2 - 2-dose childhood series)Varicella vaccine (1 of 2 - 2-dose childhood series)[facility]: 63-57-3628EKHEA-19 Vaccine (#1) COVID-19 Vaccine (#1)[facility]: 58-00-6197DLYPVONRH B (1 of 3 - 3-dose series)HEPATITIS B (1 of 3 - 3-dose series)[facility]: 67-84-0606Djlxxpqnw B Vaccine (1 of 3 - 3-dose series)Hepatitis B Vaccine (1 of 3 - 3-dose series)[facility] End: 68-77-6006Jhvvp Fetoprotein, [facility]aternalB[facility] Work Phone: comment on above:Once for 1 Occurrences starting 11/21/2021 until 11/21/2021 End: 24-23-0435Ccwqkbgmbom Ab, HEp-2 Substrate, S (NASEEM by IFA)Antinuclear Ab, HEp-2 Substrate, S (NASEEM by IFA) Lab Routine Antiphospholipid syndrome Antiphospholipid syndrome complicating , antepartum History of CVA (cerebrovascular accident) 1 Occurrences starting 02/16/2025 until 02/16/2026 [facility] Work Phone: comment on above:1 Occurrences starting 02/16/2025 until 6Bacteria identified in Urine by CultureUrine culture Microbiology Routine Missed menses Ordered: 04/04/2024[facility] HealthcareComment on above:Ordered: 04/04/2024acteria identified in Urine by CultureUrine culture Microbiology Routine Missed menses Ordered: 10/02/2024[facility] HealthcareComment on above:Ordered: 10/02/2024 End: 50-77-3040TQR W Auto Differential panel - BloodCBC + DIFF Lab Routine Primary hypercoagulable state (HCC) CVA, old, 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[facility]) Every 2 months for 6 Occurrences starting 01/30/2022 until 01/30/2023[facility] Work Phone: Comment on above:Every 2 months for 6 Occurrences starting 01/30/2022 until 3CBC W Auto Differential panel - BloodCBC and differential Lab Routine Missed menses , unspecified gestational age Ordered: 04/04/2024[facility] HealthcareComment on above:Ordered: 4CBC W Auto Differential panel - BloodCBC and differential Lab Routine Missed menses , unspecified gestational age Ordered: 10/02/2024[facility] HealthcareComment on above:Ordered: 10/02/2024BC W Auto Differential panel - BloodCBC and differential Lab Routine 28 weeks gestation of ([facility]) Ordered: 02/09/2025[facility] Work Phone: comment on above:Ordered: 02/09/2025HLAMYDIA TRACHOMATIS (GENITO/STI)CHLAMYDIA TRACHOMATIS (GENITO/STI) Lab Routine Vaginal bleeding Vaginal discharge Ordered: 06/23/2024[facility] HealthcareComment on above: Ordered: 06/23/2024HLAMYDIA TRACHOMATIS (GENITO/STI)CHLAMYDIA TRACHOMATIS (GENITO/STI) Lab Routine Vaginal discharge Ordered: 11/20/2024[facility] Healthcare Comment on above:Ordered: 11/20/2024 End: 27-24-2563Vkmynhfdbk profile (C3 AND C4)Complement profile (C3 AND C4) Lab Routine Antiphospholipid syndrome Antiphospholipid syndrome complicating , antepartum History of CVA (cerebrovascular accident) 1 Occurrences starting 02/16/2025 until 02/16/2026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 SystemComment on above:1 Occurrences starting 02/16/2025 until 02/16/2026 End: 49-82-5347HGE PanelENA Panel Lab Routine Antiphospholipid syndrome Antiphospholipid syndrome complicating , antepartum History of CVA (cerebrovascular accident) 1 Occurrences starting 02/16/2025 until 02/16/[address] [facility] SystemComment on above:1 Occurrences starting 02/16/2025 until 02/16/2026Hemoglobin A1c/Hemoglobin.total in BloodHemoglobin A1c Lab Routine Missed menses , unspecified gestational age Ordered: 04/04/2024[facility] HealthcareComment on above:Ordered: 04/04/2024Hemoglobin A1c/Hemoglobin.total in BloodHemoglobin A1c Lab Routine Missed menses , unspecified gestational age Ordered: 10/02/2024[facility] HealthcareComment on above:Ordered: 10/02/2024Hepatitis B virus surface Ag [Presence] in Serum or Plasma by ImmunoassayHepatitis B surface antigen Lab Routine Missed menses , unspecified gestational age Ordered: 04/04/2024[facility] HealthcareComment on above: Ordered: 04/04/2024Hepatitis B virus surface Ag [Presence] in Serum or Plasma by ImmunoassayHepatitis B surface antigen Lab Routine Missed menses , unspecified gestational age Ordered: 10/02/2024[facility] HealthcareComment on above: Ordered: 10/02/2024Hepatitis C virus Ab [Presence] in Serum or Plasma by ImmunoassayHepatitis C antibody Lab Routine Missed menses , unspecified gestational age Ordered: 04/04/2024[facility] HealthcareComment on above:Ordered: 04/04/2024Hepatitis C virus Ab [Presence] in Serum or Plasma by Immunoassay Hepatitis C antibody Lab Routine Missed menses , unspecified gestational age Ordered: 10/02/2024[facility] HealthcareComment on above:Ordered: 10/02/2024HIV-1/HIV-2 antigen/antibody combination immunoassayHIV-1 and HIV-2 antibodies Lab Routine Missed menses , unspecified gestational age Ordered: 04/04/2024[facility] HealthcareComment on above:Ordered: 04/04/2024 HIV-1/HIV-2 antigen/antibody combination immunoassayHIV-1 and HIV-2 antibodies Lab Routine Missed menses , unspecified gestational age Ordered: 10/02/2024[facility] HealthcareComment on above:Ordered: 10/02/2024Neisseria gonorrhoeae DNA [Presence] in Unspecified specimen by LELO with probe detection Neisseria gonorrhea DNA probe, direct Lab Routine Vaginal bleeding Vaginal discharge Ordered: 06/23/2024[facility] HealthcareComment on above:Ordered: 06/23/2024 Neisseria gonorrhoeae DNA [Presence] in Unspecified specimen by LELO with probe detectionNeisseria gonorrhea DNA probe, direct Lab Routine Vaginal discharge Ordered: 11/20/2024[facility] HealthcareComment on above:Ordered: 11/20/2024Reagin Ab [Presence] in Serum by RPRRPR Lab Routine Missed menses , unspecified gestational age Ordered: 04/04/2024[facility] HealthcareComment on above:Ordered: 4Reagin Ab [Presence] in Serum by RPRRPR Lab Routine Missed menses , unspecified gestational age Ordered: 10/02/2024[facility] HealthcareComment on above:Ordered: 10/02/2024Rubella antibody, IgGRubella antibody, IgG Lab Routine Missed menses , unspecified gestational age Ordered: 04/04/2024 [facility] HealthcareComment on above:Ordered: 04/04/2024ubella antibody, IgGRubella antibody, IgG Lab Routine Missed menses , unspecified gestational age Ordered: 10/02/2024[facility] HealthcareComment on above:Ordered: 10/02/2024 SURESWAB(R) ADVANCED VAGINITIS PLUS, TMASURESWAB(R) ADVANCED VAGINITIS PLUS, TMA Pathology and Cytology Routine Vaginal bleeding Vaginal discharge Ordered: 06/23/2024[facility] Healthcare Work Phone: comment on above:Ordered: 06/23/2024SURESWAB(R) ADVANCED VAGINITIS PLUS, TMASURESWAB(R) ADVANCED VAGINITIS PLUS, TMA Pathology and Cytology Routine Vaginal discharge Ordered: 11/20/2024[facility] Healthcare Work Phone: comment on above:Ordered: 11/20/2024Thyrotropin [Units/volume] in Serum or PlasmaTSH Lab Routine Hypothyroidism (acquired) ([facility]) Ordered: 04/04/2024[facility] HealthcareComment on above:Ordered: 04/04/2024 Thyrotropin [Units/volume] in Serum or PlasmaTSH Lab Routine History of thyroid disease Ordered: 06/02/2024[facility] Work Phone: comxbfs on above:Ordered: 06/02/2024Thyrotropin [Units/volume] in Serum or PlasmaTSH Lab Routine Thyroid disease ([facility]) Ordered: 10/02/2024[facility] HealthcareComment on above:Ordered: 10/02/2024 Thyrotropin [Units/volume] in Serum or PlasmaTSH Lab Routine Second trimester ([facility]) Thyroid disease Ordered: 12/11/2024[facility] Work Phone: comgywn on above:Ordered: 12/11/2024UA DIP, URINE (POC)UA DIP, URINE (POC) Lab Routine Infective urethritis Ordered: 08/01/2021 [facility] Work Phone: Comment on above:Ordered: 08/01/2021Vitamin D 1,25 dihydroxyVitamin D 1,25 dihydroxy Lab Routine Low vitamin D level Ordered: 04/04/2024[facility] HealthcareComment on above:Ordered: 04/04/2024 End: 09-24-5640Utoswkw D 25 hydroxyVitamin D 25 hydroxy Lab Routine Insulin controlled gestational diabetes mellitus (GDM) in second trimester 1 Occurrences starting 12/03/2024 until 12/03/2025[facility] Work Phone: comment on above:1 Occurrences starting 12/03/2024 until 12/03/2025[facility] Immunizations Immunization DateImmunizationNotesCare IjcrjdgeSnuocakp05-41-6585itrcaspeq virus vaccine, unspecified formulationKristofer Calix MD Work Phone: [facility] CenterHqnrxr00-44-9709jcgfcxz toxoid, reduced diphtheria toxoid, and acellular pertussis vaccine, adsorbedMa Sand Work Phone: [facility] CenterNEGATED: Highlighted row has not occurred!67-34-6176lowrarskw virus vaccine, unspecified formulationScott PRAVEEN [phone]-MvqqnKettering Health Preble Primary CareNEGATED: Highlighted row has not occurred!64-60-9209payprsgbr virus vaccine, unspecified formulationPERNELL LONGORIA [phone]-WhjuaKettering Health [facility]ble [facility] [place] Payers DatePayer CategoryPayerPolicy [id number] 2021Medicaid [place] [employer] [employer] MEDICA[employer] [id number] 2020-Present [phone] [address] [place] [address] [id number] 2021Medicaid [id number] 2.16.840.1.329909.3.579.[id number] 2.16.840.1.032184.3.579.2.62315-25-4953Jsmjnkl725449585 2.16.840.1.702134.3.579.2.24907-22-2497Jyqatxd4097192 2.16.840.1.068551.3.579.2.60667-27-7626Incdpdz0597730 2.16.840.1.670304.3.579.2.05160-74-3963Kttdgtg7583081 2.16840.1.877422.3.579.2.58299-74-9123Myzrbra2423483 2.16840.1.631110.3.579.2.93940-58-5599Edxwzcw3610660 2.16.840.1.850958.3.579.2.41450-38-9395Shdsify5836265 2.16.840.1.647382.3.579.2.47332-40-4190Kdpuess0103339 2.16.840.1.642799.3.579.2.82726-12-6875Wsnpibq3500863 2.16.840.1.870267.3.579.2.96965-24-5427Jgkfwpa7674477 2.16.840.1.519673.3.579.2.21964-14-8034Cbtoetp5668756 2.16.840.1.790146.3.579.2.80162-50-8777Uvpxgen9279225 2.16840.1.662533.3.579.2.91022-37-3998Woiexxo1008994 2.16840.1.373482.3.579.2.64511-15-9480Jxjqzkk0352634 2.16840.1.319643.3.579.2.72076-21-2804Cmchluw2115030 2.16840.1.167673.3.579.2.23390-69-9710Bsjkyyv8858492 2.16840.1.118569.3.579.2.19022-69-2999Cszslpe1072144 2.16840.1.907057.3.579.2.27728-59-4779Ssksjtd6078110 2.840.1.449681.3.579.2.59580-83-2859Asfcmof7470097 2.840.1.673878.3.579.2.81526-77-0964Hhhqqwl7946567 2.840.1.749194.3.579.2.91873-88-5545Oagowwt3736465 2.840.1.902332.3.579.2.22493-90-3917Dbkthvf9277639 2.840.1.842552.3.579.2.64385-82-1073Ulnbswp1200039 2.840.1.244928.3.579.2.43485-24-5328Hhyaqbd9891872 2.16840.1.324577.3.579.2.96961-46-2303Spldeii3138244 2.16840.1.186205.3.579.2.18427-29-4108Fzdahme2771566 2.16840.1.216730.3.579.2.45849-06-1007Yngtnar6266769 2.16840.1.260163.3.579.2.86522-84-9715Dvxdvkl06215839 2.16840.1.676739.3.579.2.60441-55-9160Vcyagcz74204971 2.16840.1.297693.3.579.2.13763-72-8806Rrdcxnv45611350 2.16840.1.593128.3.579.2.49483-60-7096Trhzazo94472975 2.16840.1.879634.3.579.2.57760-81-9608Ydinssb48118919 2..1.337090.3.579.2.79731-84-4909Tpizezc95365032 2..1.335508.3.579.2.27378-41-6873Jiglpfc39884795 2.840.1.840865.3.579.2.29721-66-5096Aftlavb05554638 2.0.1.860602.3.579.2.15344-85-0006Oocnvap78186183 2.0.1.502827.3.579.2.48977-72-0395Zkbvarf67894146 2..1.050688.3.579.2.26260-09-3063Mzsdhkt10854261 2.16840.1.973932.3.579.2.35100-01-2267Rhafhsg63059174 2.16840.1.593009.3.579.2.41939-45-5818Upwenpx33960182 2.16840.1.441966.3.579.2.72433-68-4859Zltkjys41244548 2.16840.1.917982.3.579.2.33621-47-3540Jwwvkum54349843 2.16840.1.235131.3.579.2.09623-34-9063Cxpyrer02348404 2.16840.1.674539.3.579.2.10195-97-1723Xtqbjps47640342 2.16840.1.211130.3.579.2.59260-36-7933Bknworu89562974 2.840.1.760726.3.579.2.19497-46-4718Hikswyi10303183 2.0.1.856702.3.579.2.47241-69-2125Dvuhiay74631723 2.840.1.060318.3.579.2.15719-17-9991Lkclzro17005001 2.0.1.838810.3.579.2.45211-46-6299Jjwxmdf36071716 2.840.1.150212.3.579.2.10782-14-6774Zuydkbc27103104 2.0.1.720976.3.579.2.34758-77-6492Ywxiuhk09913342 2.840.1.847572.3.579.2.18656-88-7637Fnpezch53294698 2.0.1.166393.3.579.2.83554-07-4039Rjjpebc34322758 2.840.1.132395.3.579.2.36206-92-7063Idyekjc41931816 2.840.1.868426.3.579.2.00070-25-4038Ifjjdub87619790 2.840.1.355954.3.579.2.49999-26-9959Dqgbyxo35880680 2.16840.1.610076.3.579.2.89737-71-2926Kfkdzru36027672 2.16840.1.775750.3.579.2.40472-45-6752Ofmivlu92237709 2.16840.1.242639.3.579.2.08240-53-7533Ijnhosc46385228 2.16840.1.767314.3.579.2.11027-44-5109Zvnmalw52688623 2.16840.1.827727.3.579.2.79864-00-9642Pqzonrv02399303 2.0.1.338021.3.579.2.48605-81-5246Upkhuxr18976044 2.0.1.760142.3.579.2.14094-73-1189Jskluhx60101641 2.840.1.341785.3.579.2.60566-46-7714Aauerif88833977 2.840.1.113337.3.579.2.39871-63-0332Btjigby47724282 2.840.1.548217.3.579.2.31772-77-1913Cbxldfq05928127 2.0.1.252173.3.579.2.59276-03-8741Qsyhuiz54876579 2.840.1.760068.3.579.2.89078-66-4792Wykyksb65058239 2.840.1.293306.3.579.2.35606-36-8498Mssutkg20532971 2.16840.1.318079.3.579.2.07396-91-9737Oppgfnb73498332 2.840.1.199169.3.579.2.05173-54-4914Xvaowog55335694 2.16840.1.648123.3.579.2.35747-93-5985Oyzrllk676785264 2.16840.1.277561.3.579.2.482552-94-4522Gdoocvi533195697 2.16840.1.273121.3.579.2.262098-32-0252Hjvupgn036475106 2.16840.1.419201.3.579.2.930999-72-8919Tpclyvz95685878 2.840.1.830376.3.579.2.37753-14-7881Npppwsb29163420 2.840.1.590929.3.579.2.395230-82-2535Mtzcmqz79627464 2.840.1.185995.3.579.2.825363-92-7499Lweibvh66480909 2.840.1.380435.3.579.2.993457-72-3111Wxptqnr49441843 2.840.1.594722.3.579.2.158323-00-5246Yzggfmw33975586 2.840.1.932791.3.579.2.835655-28-7650Twfqmwc05209643 2.840.1.819474.3.579.2.093870-83-1516Vhplpyt63798744 2.840.1.586124.3.579.2.354702-03-8376Kbrtosn56962014 2.840.1.773841.3.579.2.937335-56-4132Nkbjqwb94859602 2.16840.1.149998.3.579.2.481783-23-3092Xikkrff54187203 2.16840.1.388282.3.579.2.942955-39-1152Keeueox3661375 2.16.840.1.086576.3.579.2.896984-31-9257Swwhxwu6528564 2.16840.1.417492.3.579.2.276073-77-8480Muspyll4573258 2.16840.1.217050.3.579.2.163294-60-8965Ytgdjen9533326 2.16840.1.944893.3.579.2.295357-25-7432Xyfakkk2403222 2.0.1.006732.3.579.2.952208-22-9304Catdfij2469797 2.840.1.088930.3.579.2.602857-25-3926Kfwuann871709680 2.840.1.492168.3.579.2.229609-65-0245Yhiqwnp819885642 2.840.1.714796.3.579.2.974278-22-7655Lgublne263967348 2.840.1.113287.3.579.2.135964-37-6352Dqgczzx002011926 2.840.1.403216.3.579.2.735673-99-5453Jrbedsr105122164 2.840.1.196308.3.579.2.474015-97-8447Sqolbdf946107461 2.16840.1.778963.3.579.2.934095-85-5843Imzzbsd848187106 2.16840.1.274039.3.579.2.595160-00-1030Wyjaglq963172796 2.16840.1.203862.3.579.2.310766-44-0534Edyw-koh66-07-9852FmjmspkD4727795747 29-90-0753Yqltguw90655881950 1.2.840.895598.1.13.239.2.7.3.177311.315Unknown 7131619 2.16.840.1.644534.3.579.2.593 Social History DateTypeDetailFacilityStart: 09-10-2017 End: 84-76-1552Boicmgu smoking status NHISNever smoked tobaccoUniversity Hospitals Geneva Medical Center Start: 09-10-2017 End: 10-17-6584Ymfkede use and exposureSmokeless tobacco non-userOhio State Health Systemtart: 08-01-2021 End: 12-95-6728Ebpsxpy intakeCurrent non-drinker of alcohol (finding)[place] [facility] Systemt[facility]: 60-57-2022Fij Assigned At BirthNot on fileOhio State Health Systemtart: 07-22-2021 End: 86-73-7936Fcyvovmq to SARS-CoV-2 (event)Not sureOhio State Health Systemtart: 05-28-2017 End: 76-23-5189Btkmxja smoking statusNeverSouthwest General Health Center Start: 06-10-2020 End: 43-83-4539Msu Assigned At BirthFemalFirelands Regional Medical Center [facility] Campus Start: 11-21-2021 End: 48-04-2178Pigdotc intakeEx-drinker (finding)[employer] Work Phone: start: 28-37-7799Ddvsfzh SDOH Alcohol Comment occasionallyBON [employer] Phone: start: 18-77-3001HqvbrrvtOJT [employer] Phone: start: 06-10-2020 End: 29-60-7477Ztijuzl of Social functionOhio State Health Systemtart: 04-04-2024 End: 58-33-2798Vevdqxiyd beverage intakeLifetime non-drinker (finding)[facility] HealthcareTobacco smoking status MTISUnknown if ever smokedKettering Health Preble Work Phone: Start: 11-27-2018 End: 43-84-5755ZncAdkvsc (finding)[facility] Hospitaltart: 87-99-2558Ega Assigned At [facility] Medical Equipment Procedure CodeEquipment CodeEquipment Original TextEquipment IdentifierDates [id number]: 10-30-2024 End: each by In Vitro route Daily Use to check FSBS four times daily [id number]: 10-30-2024 End: 74-63-2090Deq a new needle with each injection ( 1- 5 times per day) [id number]: 12-03-2024 Functional Status UbtuKkbltgggqxAhghycHlfkxqsw00-89-7271Ymemfjp Health Questionnaire 2 item (PHQ- 2) [Reported][facility] HospitalCeofbcqqeq21-22-6250Iadgyxy Health Questionnaire 2 item (PHQ- 2) [Reported][facility] Psych[facility] HospitalJpzxzbtich82-80-8900Ausemjyrtx StatusN/[facility] Bzav46-67-1259Qromaztiun StatusN/[facility] Fueso29-57-5217Rhhhibfoeo StatusN/[facility] Kbcr55-83-9048Cerupjodju StatusN/[facility] Cvyo69-88-6220Rxnmsgneaa StatusN/[facility] 66-15-8437Yxevipvspv StatusN/[facility] Tvxw95-44-5527 Functional StatusN/[facility] Kvmd13-74-8425Azbaewljac StatusN/[facility] Uzoi55-13-0132Cfsgxjmvqd Status N/[facility] Kubi70-85-7294Isgwwzwast StatusN/[facility] Primary Munt60-69-8774Mivazjvlkw StatusN/[facility] Teot54-24-1821Ftqnefbeex StatusN/[facility] Clinical Notes 07-26-2019 to 03-11-2025 Note Date & YnrqCokhEvaoulys28-20-2828 History of Present illness Narrative* Charles Cortes MD - 03/11/2025 9:45 AM EST REASON FOR TELEMEDICINE VIDEO OFFICE VISIT: Multiple medical problems HISTORY OF PRESENT ILLNESS: Sanna Rendon is a pleasant 39 y.o. G 8p [...] age) multigravida 35+ Antiphospholipid syndrome Hypothyroid Stroke ([facility]) Gestational diabetes mellitus (GDM) in second trimester [...] Anemia Antiphospholipid antibody syndrome Cerebral infarction, unspecified ([facility]) 05/16/2019 Hypothyroid Migraine without aura and without status migrainosus, not intractable 09/12/2017 Stroke ([facility]) 2015 REVIEW OF SYSTEMS: Head and Neck: [...] for allowing me to participate in Sanna Rendon care. If there are any questions, please do not hesitate to call me. Sincerely, CHARLES CORTES MD Video Visit via Real-time Synchronous Audiovisual Provider Location: [facility]- MEDICINE AT [address] [address] Patient Location: Patient's home Patient Location Rn Integrated: None Video Visit Consent Statement: I discussed [...] that there are some limitations compared to gkxr-ov-udck evaluations. We elected to proceed. documented in this encounterSumma Health Barberton CampusVital Health Data Solutions Beaumont HospitalCstabb12-39-3445 NoteHNO ID: [id number] Author: KATHERINE NEGRETE APRN.TANK TESTER Service: ? Author Type: Nurse Practitioner Type: Progress Notes Filed: 03/02/2025 20:18 Note Text: NAME: Sanna Rendon CLINIC NO.: [id number] DATE OF SERVICE: March 02, 2025 ([place]elope) [...] later in 2018. These were found in [place], [place]. I don't have access to these [...] a target-like rash shortly before presenting to [facility] in 2015 with headaches and was diagnosed [...] SUMMARIZED PLAN OF CARE: Continue Lovenox Saw TECHNOLOGY EDUCATION TEACHER and patient increased Lovenox to 40 mg [...] She has a h (more content not included)...[place] [address]-27-2025 History of Present illness Narrative* Rosi Murray, LAUNDRY MARKER SUPERVISOR - 02/23/2025 9:00 AM EDT Reason for [...] Diagnosis Date Noted 32 weeks gestation of ([facility]) 11/28/2019 Abdominal pain 06/12/2023 Acute bronchitis due to infection 06/12/2023 Acute on chronic vesicular eczema of hands and feet 11/15/2023 Anemia complicating childbirth ([facility]) 01/16/2020 Anticoagulant long-term use 02/22/2020 Antiphospholipid antibody positive 09/10/2017 Antiphospholipid antibody syndrome ([facility]) 07/07/2019 Anxiety 06/12/2023 Blood pressure elevated without history of HTN 11/15/2023 BMI 37.0-37.9, adult 11/15/2023 Cerebral infarction, unspecified ([facility]) 05/16/2019 Cerebrovascular accident (CVA) due to stenosis of middle cerebral artery ([facility]) 02/22/2020 Cervicalgia 02/05/2019 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 ([facility]) 01/08/2020 Coagulation defect, unspecified ([facility]) 02/05/2019 Cold intolerance 11/15/2023 Deficiency of other specified B group vitamins 05/16/2019 Deviated septum 11/15/2023 Dizziness and giddiness 02/05/2019 Dry mouth 11/15/2023 Dysfunction of eustachian tube 06/12/2023 Dyspnea 06/12/2023 Elevated blood pressure reading 11/15/2023 Encounter for supervision of normal , unspecified, first trimester ([facility]) 05/29/2019 Environmental allergies 11/15/2023 Fatigue 12/29/2016 First degree perineal laceration during delivery ([facility]) 01/16/2020 Frequency of micturition 02/19/2019 Genitourinary symptoms 08/19/2021 Gestational diabetes mellitus (GDM), antepartum ([facility]) 01/26/2022 H/O: hypothyroidism 11/15/2023 Hematochezia 06/12/2023 [...] anemia 01/16/2020 Irregular uterine bleeding 11/15/2023 problem ([facility]) 06/12/2023 Less than 8 weeks gestation of ([facility]) 06/05/2019 penitentiary (current) use of 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/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 02/05/2019 Migraine without aura and without status migrainosus, not intractable 09/12/2017 Morbid obesity ([facility]) 11/15/2023 Muscle fasciculation 08/19/2021 Nasal polyps 11/15/2023 Non-smoker 11/15/2023 NEETA (obstructive sleep apnea) 11/15/2023 Other acute postprocedural pain 02/03/2019 Other general symptoms and signs 10/28/2019 Other immediate hemorrhage ([facility]) 01/16/2020 Other specified noninflammatory disorders of vagina 02/21/2019 Pain in joint 12/29/2016 Palpitations 08/26/2019 Paresthesia of bilateral legs 11/15/2023 Pelvic and perineal pain 02/01/2019 Personal history of urinary (tract) infections 01/16/2020 Pre-diabetes 11/15/2023 Primary hypercoagulable state ([facility]) 08/01/2022 Pruritus, unspecified 01/02/2020 Psychogenic hyperventilation 06/12/2023 Raised antibody titer 09/25/2017 Right lower quadrant pain 11/15/2023 Right otitis externa 11/15/2023 Salivary gland swelling 11/15/2023 Single live ([facility]) 01/15/2020 Snoring 11/15/2023 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) 12/30/2019 Suspected severe acute respiratory syndrome coronavirus 2 (SARS-CoV-2) infection 06/12/2023 SVT (supraventricular tachycardia) ([facility]) 08/26/2019 Syncope and collapse 06/03/2018 Other bacterial infections of unspecified site 06/27/2019 Thrombocytopenia, unspecified 11/20/2019 Hypoglycemia 06/12/2023 Unspecified condition associated with female genital organs and menstrual cycle 05/09/2019 Unspecified ovarian cyst, right side 02/06/2019 Urinary tract infection 10/16/2019 Referred otalgia of right ear 11/19/2023 LPRD (laryngopharyngeal reflux disease) 11/19/2023 H/O loss 01/05/2025 Multigravida of advanced maternal age in second trimester ([facility]) 01/05/2025 Thyroid disease 01/05/2025 Resolved Ambulatory Problems Diagnosis Date Noted No Resolved Ambulatory Problems Past Medical History: Diagnosis Date AMA (advanced maternal age) multigravida 35+ ([facility]) Anemia Antiphospholipid syndrome ([facility]) Gestational diabetes [...] drainage of cyst WISDOM TOOTH EXTRACTION 2007 [place] teeth REVIEW OF SYSTEMS Review of Systems: [...] nursing note reviewed. Exam conducted with a advanced practice nurse psychotherapist present. Vitals: Estimated body mass index is 33.98 kg/m as calculated from the following: Height as of 11/19/23: 5' 6 . Weight as of this encounter: 210 lb 8 oz. BP: 116/72 Patient's last menstrual period was 07/28/2024. Assessment/Plan ICD-10-CM 1. Third trimester ([facility]) Z34.93 2. 30 weeks gestation of ([facility]) Z3A.30 POCT urinalysis dipstick manually resulted Patient [...] of: Wilton Herrmann DO documented in this encounterHawthorn Children's Psychiatric [id number] History of Present illness Narrative* Sam Callahan MD MPH - 02/16/2025 1:45 PM EDT Images from the original note were not included. ADULT RHEUMATOLOGY CLINIC NOTE [id number] [id number] Patient Name: Sanna Rendon Subjective Reason for [...] following with two outside specialists (Neurology at [facility] and Hematology at [facility]) for management of her APS. [...] health issues unclear exact diagnoses Note from [facility] Provider (Dr. Noyola): Recent note from [...] age) multigravida 35+ Antiphospholipid syndrome Hypothyroid Stroke ([facility]) Gestational diabetes mellitus (GDM) in second trimester [...] Anemia Antiphospholipid antibody syndrome Cerebral infarction, unspecified ([facility]) 05/16/2019 Hypothyroid Migraine without aura and without status migrainosus, not intractable 09/12/2017 Stroke ([facility]) 2016 reviewed. Social History Social History Narrative [...] weeks . She is currently following with [facility] for her , neurology through the [facility] system, and hematology through [facility]. Based on extensive review of [...] Expiration Date: 02/16/2026 Release to patient via [employer]?: Immediate [1] Complement profile (C3 AND C4) Standing Status: Future Expiration Date: 02/16/2026 Release to patient via [employer]?: Immediate [1] DNA double-stranded (dsDNA) Abs by Rene angel IFA Standing Status: Future Expiration Date: 02/16/2026 Release to patient via [employer]?: Immediate [1] KELLEN Panel Standing Status: Future Expiration Date: 02/16/2026 Release to patient via [employer]?: Immediate [1] Treatment Plan: -if the patient [...] visit is OK Sam Callahan MD, MPH [facility] [address] [place] [address] Total [id number] time was 55 minutes with more than [...] you for your understanding. documented in this encounterMer[facility] Miscellaneous Notes* Telephone Encounter - Annita KendallPRISCILLA - 02/10/2025 11:54 AM EDT Called regarding [...] in blood sugars weekly. documented in this encounterWhite River Junction [facility] CenterAMW [facility]10-14-2025 Telephone encounter Note* Telephone Encounter - PRISCILLA [...] Continue to send in blood sugars weekly. [email or web address] Work Phone: 1(406) 355-530710-13-2025 History of Present illness Narrative* Rosi Murray [...] Diagnosis Date Noted 32 weeks gestation of ([facility]) 11/28/2019 Abdominal pain 06/12/2023 Acute bronchitis due to infection 06/12/2023 Acute on chronic vesicular eczema of hands and feet 11/15/2023 Anemia complicating childbirth ([facility]) 01/16/2020 Anticoagulant long-term use 02/22/2020 Antiphospholipid antibody positive 09/10/2017 Antiphospholipid antibody syndrome ([facility]) 07/07/2019 Anxiety 06/12/2023 Blood pressure elevated without history of HTN 11/15/2023 BMI 37.0-37.9, adult 11/15/2023 Cerebral infarction, unspecified ([facility]) 05/16/2019 Cerebrovascular accident (CVA) due to stenosis of middle cerebral artery ([facility]) 02/22/2020 Cervicalgia 02/05/2019 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 ([facility]) 01/08/2020 Coagulation defect, unspecified ([facility]) 02/05/2019 Cold intolerance 11/15/2023 Deficiency of other specified B group vitamins 05/16/2019 Deviated septum 11/15/2023 Dizziness and giddiness 02/05/2019 Dry mouth 11/15/2023 Dysfunction of eustachian tube 06/12/2023 Dyspnea 06/12/2023 Elevated blood pressure reading 11/15/2023 Encounter for supervision of normal , unspecified, first trimester ([facility]) 05/29/2019 Environmental allergies 11/15/2023 Fatigue 12/29/2016 First degree perineal laceration during delivery ([facility]) 01/16/2020 Frequency of micturition 02/19/2019 Genitourinary symptoms 08/19/2021 Gestational diabetes mellitus (GDM), antepartum ([facility]) 01/26/2022 H/O: hypothyroidism 11/15/2023 Hematochezia 06/12/2023 [...] anemia 01/16/2020 Irregular uterine bleeding 11/15/2023 problem ([facility]) 06/12/2023 Less than 8 weeks gestation of ([facility]) 06/05/2019 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/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 02/05/2019 Migraine without aura and without status migrainosus, not intractable 09/12/2017 Morbid obesity ([facility]) 11/15/2023 Muscle fasciculation 08/19/2021 Nasal polyps 11/15/2023 Non-smoker 11/15/2023 NEETA (obstructive sleep apnea) 11/15/2023 Other acute postprocedural pain 02/03/2019 Other general symptoms and signs 10/28/2019 Other immediate hemorrhage ([facility]) 01/16/2020 Other specified noninflammatory disorders of vagina 02/21/2019 Pain in joint 12/29/2016 Palpitations 08/26/2019 Paresthesia of bilateral legs 11/15/2023 Pelvic and perineal pain 02/01/2019 Personal history of urinary (tract) infections 01/16/2020 Pre-diabetes 11/15/2023 Primary hypercoagulable state ([facility]) 08/01/2022 Pruritus, unspecified 01/02/2020 Psychogenic hyperventilation 06/12/2023 Raised antibody titer 09/25/2017 Right lower quadrant pain 11/15/2023 Right otitis externa 11/15/2023 Salivary gland swelling 11/15/2023 Single live ([facility]) 01/15/2020 Snoring 11/15/2023 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) 12/30/2019 Suspected severe acute respiratory syndrome coronavirus 2 (SARS-CoV-2) infection 06/12/2023 SVT (supraventricular tachycardia) ([facility]) 08/26/2019 Syncope and collapse 06/03/2018 Other bacterial infections of unspecified site 06/27/2019 Thrombocytopenia, unspecified 11/20/2019 Hypoglycemia 06/12/2023 Unspecified condition associated with female genital organs and menstrual cycle 05/09/2019 Unspecified ovarian cyst, right side 02/06/2019 Urinary tract infection 10/16/2019 Referred otalgia of right ear 11/19/2023 LPRD (laryngopharyngeal reflux disease) 11/19/2023 H/O loss 01/05/2025 Multigravida of advanced maternal age in second trimester ([facility]) 01/05/2025 Thyroid disease 01/05/2025 Resolved Ambulatory Problems Diagnosis Date Noted No Resolved Ambulatory Problems Past Medical History: Diagnosis Date AMA (advanced maternal age) multigravida 35+ ([facility]) Anemia Antiphospholipid syndrome ([facility]) Gestational diabetes ([facility]) Heartburn Hypothyroid Stroke ([facility]) HISTORY PAST MEDICAL HISTORY SOCIAL HISTORY Past Medical History: Diagnosis Date AMA (advanced maternal age) multigravida 35+ ([facility]) Anemia Antiphospholipid syndrome ([facility]) Gestational diabetes ([facility]) Heartburn Hypothyroid Stroke ([facility]CC) Social History Tobacco [...] drainage of cyst WISDOM TOOTH EXTRACTION 2007 [place] teeth REVIEW OF SYSTEMS Review of Systems: [...] nursing note reviewed. Exam conducted with a advanced practice nurse psychotherapist present. Vitals: Estimated body mass index is 34.12 kg/m as calculated from the following: Height as of 11/19/23: 5' 6 . Weight as of this encounter: 211 lb 6.4 oz. BP: 124/76 Patient's last menstrual period was 07/28/2024. ASSESSMENT & PLAN ICD-10-CM 1. Third trimester ([facility]) Z34.93 2. 28 weeks gestation of ([facility]) Z3A.28 CBC and differential POCT urinalysis [...] givenorders and they were also faxed to [facility] and [facility] Scheduling. Patient to return to clinic in 2 weeks for routine OB appointment. Documented by Rosi Murray LPN on behalf of: Wilton Herrmann DO documented in this encounterHawthorn Children's Psychiatric [id number] History of Present illness Narrative* Mukul Noyola MD - 02/06/2025 2:00 PM EDT Images from the original note were not included. Video Visit via Real-time Synchronous Audiovisual Provider Location: [facility] AT [address] [phone] Patient Location: Other Home Patient Location Rn Integrated: None Video Visit Consent Statement: I discussed [...] that there are some limitations compared to ufoj-pw-pbsq evaluations. We elected to proceed. [facility] Maternal- Medicine Office Note Reason For Office [...] will be undergoing genetic testing through the credit reporter. There is family history of hypospadias and [...] Anemia Antiphospholipid antibody syndrome Cerebral infarction, unspecified ([facility]) 05/16/2019 Hypothyroid Migraine without aura and without status migrainosus, not intractable 09/12/2017 Stroke ([facility]) 2016 PSHIST: Past Surgical History: Procedure Laterality [...] to continue to send blood glucoses to [facility] to review - continue Lovenox 40 [...] Mukul Noyola MD, FACOG (she/hers) Maternal- Medicine [facility] [address] [place] [address] This document was created with [email or web address] technology. Though I make every effort to review the dictation as it is transcribed, on occasion the spoken word can be misinterpreted by the technology leading to inappropriate words, phrases, or sentences. This note is addressed to the requesting provider as a consultation for clinical guidance. Specificmedical abbreviations are occasionally used and those are generally approved by the [place]?Board of?Obstetrics and?Gynecology?as well as?Elizabeth s abbreviations. The above plan of care was based solely on the diagnoses for which a consultation was requested. ?More frequent testing may be indicated based on her other medical/obstetrical conditions. The management of other or medical conditions is beyond the scope of requested consultation and will c ontinue to be followed by the primary residential case manager or primary care provider. Note to patient: [...] opinion of the practitioner. documented in this encounterSumma Health Barberton CampusVital Health Data Solutions Beaumont [id number] NoteEchocardiology Procedure Exam Date/Time Accession # Ordering Dr. Echo Transthoracic 02/03/2025 10:00 EDT [id number] Wilton HERRMANN DO Complete CPT code 66097 43288 Reason for Exam (Echo Transthoracic Complete) Dizziness and giddiness E07.9, O09.522 R42 Report [facility] [address] [place] [address] Adult Echocardiogram Report Name: SANNA RENDON Study Date: 02/03/2025 08:09 AM BP: 116/76 mmHg Patient Location: FT CAR F HR: 84 : 1985 Gender: Female Height: 66 in Age: 39 yrs Ethnicity: [facility] Weight: 205 lb Reason For Study: Dizziness and giddiness E07.9, O09.522 R42 BSA: 2.0 m2 History: 27 weeks , Thyroid disease, Gestational diabetes, CVA Ordering Physician: Wilton HERRMANN Referring Physician: Wilton HERRMANN Performed By: Marry Peng RDCS Interpretation Summary There is Trace mitral regurgitation. [...] FINAL REPORT Dictated: 02/03/2025 8:09 am Merrick Watikns MD Signed (Electronic Signature): 02/03/2025 1:41 pm Signed by: Merrick Watkins MD Transcribed by: [facility] Technologist: [facility]09-22-2025 History of Present illness Narrative* Celia Keith NP - 01/19/2025 9:00 AM EDT Reason for [...] Diagnosis Date Noted 32 weeks gestation of ([facility]) 11/28/2019 Abdominal pain 06/12/2023 Acute bronchitis due to infection 06/12/2023 Acute on chronic vesicular eczema of hands and feet 11/15/2023 Anemia complicating childbirth ([facility]) 01/16/2020 Anticoagulant long-term use 02/22/2020 Antiphospholipid antibody positive 09/10/2017 Antiphospholipid antibody syndrome ([facility]) 07/07/2019 Anxiety 06/12/2023 Blood pressure elevated without history of HTN 11/15/2023 BMI 37.0-37.9, adult 11/15/2023 Cerebral infarction, unspecified ([facility]) 05/16/2019 Cerebrovascular accident (CVA) due to stenosis of middle cerebral artery ([facility]) 02/22/2020 Cervicalgia 02/05/2019 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 ([facility]) 01/08/2020 Coagulation defect, unspecified ([facility]) 02/05/2019 Cold intolerance 11/15/2023 Deficiency of other specified B group vitamins 05/16/2019 Deviated septum 11/15/2023 Dizziness and giddiness 02/05/2019 Dry mouth 11/15/2023 Dysfunction of eustachian tube 06/12/2023 Dyspnea 06/12/2023 Elevated blood pressure reading 11/15/2023 Encounter for supervision of normal , unspecified, first trimester ([facility]) 05/29/2019 Environmental allergies 11/15/2023 Fatigue 12/29/2016 First degree perineal laceration during delivery ([facility]) 01/16/2020 Frequency of micturition 02/19/2019 Genitourinary symptoms 08/19/2021 Gestational diabetes mellitus (GDM), antepartum ([facility]) 01/26/2022 H/O: hypothyroidism 11/15/2023 Hematochezia 06/12/2023 [...] anemia 01/16/2020 Irregular uterine bleeding 11/15/2023 problem ([facility]) 06/12/2023 Less than 8 weeks gestation of ([facility]) 06/05/2019 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/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 02/05/2019 Migraine without aura and without status migrainosus, not intractable 09/12/2017 Morbid obesity ([facility]) 11/15/2023 Muscle fasciculation 08/19/2021 Nasal polyps 11/15/2023 Non-smoker 11/15/2023 NEETA (obstructive sleep apnea) 11/15/2023 Other acute postprocedural pain 02/03/2019 Other general symptoms and signs 10/28/2019 Other immediate hemorrhage ([facility]) 01/16/2020 Other specified noninflammatory disorders of vagina 02/21/2019 Pain in joint 12/29/2016 Palpitations 08/26/2019 Paresthesia of bilateral legs 11/15/2023 Pelvic and perineal pain 02/01/2019 Personal history of urinary (tract) infections 01/16/2020 Pre-diabetes 11/15/2023 Primary hypercoagulable state ([facility]) 08/01/2022 Pruritus, unspecified 01/02/2020 Psychogenic hyperventilation 06/12/2023 Raised antibody titer 09/25/2017 Right lower quadrant pain 11/15/2023 Right otitis externa 11/15/2023 Salivary gland swelling 11/15/2023 Single live ([facility]) 01/15/2020 Snoring 11/15/2023 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) 12/30/2019 Suspected severe acute respiratory syndrome coronavirus 2 (SARS-CoV-2) infection 06/12/2023 SVT (supraventricular tachycardia) ([facility]) 08/26/2019 Syncope and collapse 06/03/2018 Other bacterial [...] drainage of cyst WISDOM TOOTH EXTRACTION 2007 [place] teeth REVIEW OF SYSTEMS Review of Systems: [...] nursing note reviewed. Exam conducted with a advanced practice nurse psychotherapist present. Vitals: Estimated body mass index is 34.14 kg/m as calculated from the following: Height as of 11/19/23: 5' 6 . Weight as of this encounter: 211 lb 8 oz. BP: 124/70 Patient's last menstrual period was 07/28/2024. ASSESSMENT & PLAN ICD-10-CM 1. Second trimester ([facility]) Z34.92 POCT urinalysis dipstick manually resulted 2. 25 weeks gestation of ([facility]) Z3A.25 3. Gestational diabetes mellitus (GDM), antepartum, gestational diabetes method of control unspecified ([facility]) O24.419 metFORMIN XR (Glucophage-XR) 500 MG [...] to switch her Lovenox and Metformin to [facility] pharmacy. Growth ultrasound at28 weeks as well as NST and BPP at 28 weeks. Documented by Celia Keith NP on behalf of: Wilton Herrmann DO documented in this encounterHawthorn Children's Psychiatric [id number] History of Present illness Narrative* Roxana Mays PA-C - 01/13/2025 10:00 AM EDT Maternal- Medicine Consultation VIDEO Patient is present at home , provider present at [facility] HISTORY OF PRESENT ILLNESS: Sanna Rendon is [...] more likely to fail compared to insulin. watermaster data on children whose mothers took oral [...] so she can have them done at [place] - Anatomy survey with MFM -followsup scheduled [...] by e-mail to: or by fax to: [phone] Roxana Mays PA-C Maternal- Medicine Office phone: [phone] Roxana Mays PA-C 01/13/25 1031 documented in this encounterSumma Health Barberton CampusVital Health Data Solutions [facility] [id number] Miscellaneous Notes* Medical Student - Mike Aquino [...] the legal medical record. documented in this encounterMercy Health Perrysburg Hospital09-16-2025 Progress note* Medical Student - Mike Aquino [...] of the legal medical record. [facility]09-12-2025 Miscellaneous Notes* Telephone Encounter - Mukul [...] NOYOLA MD documented in this encounterMercy Health Perrysburg Hospital09-12-2025 Telephone encounter Note* Telephone Encounter - [...] concerns answered. MUKUL NOYOLA MD [facility] BankBazaar.[id number] Miscellaneous Notes* Telephone Encounter - Jacque Pat RN - 01/07/2025 10:29 AM EDT Web Marketing Coordinator called and spoke to patient yesterday to discuss a several topics. Web Marketing Coordinator asked if patient wanted another follow up cervical length. Patient declined. We also discussed her insulin dosage. Patient had not started her NPH insulin yet because her pharmacy did not notify her it was ready for pickup. She asked if she could start at 4 units instead of 8. She is worried because she had a bad reaction when she took Lantus previously. Web Marketing Coordinator discussed this with Dr. Noyola and she is okay with her starting at a lower dose for now. Lastly, freelance writer notified patient that Dr. Noyola wanted to discuss with her novelty twister operator her Lovenox dosing. Patient stated there was some confusion if she should be on 40mg or 80mg, patient prefers to be on the lower dose. Patient is seeing a Dr. Calix from the [facility] hematology office in [place]. Notified patient that we will reach out to her novelty twister operator to discuss her dosing. documented in this encounterSumma Health Barberton CampusListMinut09-10-2025 Telephone encounter Note* Telephone Encounter - Jacque Pat RN - 01/07/2025 10:29 AM EDT Web Marketing Coordinator called and spoke to patient yesterday to discuss a several topics. Web Marketing Coordinator asked if patient wanted another follow up cervical length. Patient declined. We also discussed her insulin dosage. Patient had not started her NPH insulin yet because her pharmacy did not notify her it was ready for pickup. She asked if she could start at 4 units instead of 8. She is worried because she had a bad reaction when she took Lantus previously. Web Marketing Coordinator discussed this with Dr. Noyola and she is okay with her starting at a lower dose for now. Lastly, freelance writer notified patient that Dr. Noyola wanted to discuss with her novelty twister operator her Lovenox dosing. Patient stated there was some confusion if she should be on 40mg or 80mg, patient prefers to be on the lower dose. Patient is seeing a Dr. Calix from the [facility] hematology office in [place]. Notified patient that we will reach out to her novelty twister operator to discuss her dosing. [email or web address] History of Present illness Narrative* Rosi Murray [...] Diagnosis Date Noted 32 weeks gestation of ([facility]) 11/28/2019 Abdominal pain 06/12/2023 Acute bronchitis due to infection 06/12/2023 Acute on chronic vesicular eczema of hands and feet 11/15/2023 Anemia complicating childbirth ([facility]) 01/16/2020 Anticoagulant long-term use 02/22/2020 Antiphospholipid antibody positive 09/10/2017 Antiphospholipid antibody syndrome ([facility]) 07/07/2019 Anxiety 06/12/2023 Blood pressure elevated without history of HTN 11/15/2023 BMI 37.0-37.9, adult 11/15/2023 Cerebral infarction, unspecified ([facility]) 05/16/2019 Cerebrovascular accident (CVA) due to stenosis of middle cerebral artery ([facility]) 02/22/2020 Cervicalgia 02/05/2019 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 ([facility]) 01/08/2020 Coagulation defect, unspecified ([facility]) 02/05/2019 Cold intolerance 11/15/2023 Deficiency of other specified B group vitamins 05/16/2019 Deviated septum 11/15/2023 Dizziness and giddiness 02/05/2019 Dry mouth 11/15/2023 Dysfunction of eustachian tube 06/12/2023 Dyspnea 06/12/2023 Elevated blood pressure reading 11/15/2023 Encounter for supervision of normal , unspecified, first trimester ([facility]) 05/29/2019 Environmental allergies 11/15/2023 Fatigue 12/29/2016 First degree perineal laceration during delivery ([facility]) 01/16/2020 Frequency of micturition 02/19/2019 Genitourinary symptoms 08/19/2021 Gestational diabetes mellitus (GDM), antepartum ([facility]) 01/26/2022 H/O: hypothyroidism 11/15/2023 Hematochezia 06/12/2023 [...] anemia 01/16/2020 Irregular uterine bleeding 11/15/2023 problem ([facility]) 06/12/2023 Less than 8 weeks gestation of ([facility]) 06/05/2019 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/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 02/05/2019 Migraine without aura and without status migrainosus, not intractable 09/12/2017 Morbid obesity ([facility]) 11/15/2023 Muscle fasciculation 08/19/2021 Nasal polyps 11/15/2023 Non-smoker 11/15/2023 NEETA (obstructive sleep apnea) 11/15/2023 Other acute postprocedural pain 02/03/2019 Other general symptoms and signs 10/28/2019 Other immediate hemorrhage ([facility]) 01/16/2020 Other specified noninflammatory disorders of vagina 02/21/2019 Pain in joint 12/29/2016 Palpitations 08/26/2019 Paresthesia of bilateral legs 11/15/2023 Pelvic and perineal pain 02/01/2019 Personal history of urinary (tract) infections 01/16/2020 Pre-diabetes 11/15/2023 Primary hypercoagulable state ([facility]) 08/01/2022 Pruritus, unspecified 01/02/2020 Psychogenic hyperventilation 06/12/2023 Raised antibody titer 09/25/2017 Right lower quadrant pain 11/15/2023 Right otitis externa 11/15/2023 Salivary gland swelling 11/15/2023 Single live ([facility]) 01/15/2020 Snoring 11/15/2023 Speech and language [...] drainage of cyst WISDOM TOOTH EXTRACTION 2007 [place] teeth REVIEW OF SYSTEMS Review of Systems: [...] nursing note reviewed. Exam conducted with a advanced practice nurse psychotherapist present. Vitals: Estimated body mass index is 33.73 kg/m as calculated from the following: Height as of 11/19/23: 5' 6 . Weight as of this encounter: 209 lb. BP: 122/74 Patient's last menstrual period was 07/28/2024. ASSESSMENT & PLAN ICD-10-CM 1. Second trimester ([facility]) Z34.92 POCT urinalysis dipstick manually resulted 2. 23 weeks gestation of ([facility]) Z3A.23 3. Thyroid disease E07.9 Echocardiogram 2D complete ECG 12 lead unit performed Echocardiogram 2D complete 4. Gestational diabetes mellitus (GDM), antepartum, gestational diabetes method of control unspecified ([facility]) O24.419 Echocardiogram 2D complete ECG 12 lead unit performed Echocardiogram 2D complete 5. Multigravida of advanced maternal age in second trimester ([facility]) O09.522 Echocardiogram 2D complete ECG 12 [...] of: Wilton Herrmann DO documented in this encounterHawthorn Children's Psychiatric [id number] History of Present illness Narrative* Jacque Pat RN - 01/05/2025 10:20 AM EDT NPH insulin prior authorization approved. Confirmed via telephone call with automated voice messaging system. Prior authorization number #[id number] documented in this encounterMercy Health [facility]sburg Hospital09-04-2025 History of Present illness Narrative* Mukul Noyola MD - 01/01/2025 2:30 PM EDT Images from the original note were not included. Video Visit via Real-time Synchronous Audiovisual Provider Location: [facility] AT [address] [phone] Patient Location: Other [facility] Patient Location Rn Integrated: None Video Visit Consent Statement: I discussed [...] that there are some limitations compared to vbow-pa-qvdj evaluations. We elected to proceed. [facility] Maternal- Medicine Consult Note Reason For Consult: [...] will be undergoing genetic testing through the credit reporter. There is family history of hypospadias and [...] Anemia Antiphospholipid antibody syndrome Cerebral infarction, unspecified ([facility]) 05/16/2019 Hypothyroid Migraine without aura and without status migrainosus, not intractable 09/12/2017 Stroke ([facility]) 2015 PSHIST: Past Surgical History: Procedure Laterality [...] ., Disp: , Rfl: blood-glucose sensor (FREESTYLE EJNIFER 3 PLUS SENSOR) device, Wear for 15 [...] ULTRA-FINE ENID PEN NEEDLE) 32 gauge x 32 needle, Use a new needle witheach injection [...] W/O contrast; Future - [facility] - [place], [place]; Future 2. Antiphospholipid syndrome complicating , antepartum - Echo complete W/O contrast; Future - [facility] [place], [place]; Future 3. History of stroke 4. [...] intermittent symptoms concerning for an autoimmune condition [id number]. I recommended she sees a disabilities services officer. Referral given. I asked her to hold [...] supposed to undergo genetic testing with her credit reporter. After the patient left I found that [...] asymptomatic I recommend that she sees a welt rander and she desires referral locally. Recommendations: - increase metformin to 1500 mg at night - she is willing to try the NPH 8 units at night - to continue to send blood glucoses to [facility] to review - follow-up survey and [...] Mukul Noyola MD, FACOG (she/hers) Maternal- Medicine [facility] [address]st [place] [address] This document was created with [email or web address] technology. Though I make every effort to review the dictation as it is transcribed, on occasion the spoken word can be misinterpreted by the technology leading to inappropriate words, phrases, or sentences. This note is addressed to the requesting provider as a consultation for clinical guidance. Specificmedical abbreviations are occasionally used and those are generally approved by the [place]?Board of?Obstetrics and?Gynecology?as well as?Elizabeth s abbreviations. The above plan of care was based solely on the diagnoses for which a consultation was requested. ?More frequent testing may be indicated based on her other medical/obstetrical conditions. The management of other or medical conditions is beyond the scope of requested consultation and will c taniaue to be followed by the primary residential case manager or primary care provider. Note to patient: [...] male Have you been seen here at [facility] in a previous ? yes Recent ER visits or hospitalizations? Seen in L&D for cramping about 2 weeks ago Bring blood sugar log or meter with you today? (Please bring them with you for every visit at [facility]) scanned to media tab Flu vaccine (Feb-June)? no Any concerns that you would like me to mention to the provider today? No concerns documented in this encounterSumma Health Barberton CampusSemmle [id number] Miscellaneous Notes* Telephone Encounter - PRISCILLA Del [...] and basics of CGM explained. Will send [employer] message with instructions on how to connect to our [facility] account. Explained how to prudence notes on the Jenifer kennedy for fasting BG and meals. documented in this encounterSumma Health Barberton CampusVital Health Data Solutions Beaumont [id number] Telephone encounter Note* Telephone Encounter - PRISCILLA [...] and basics of CGM explained. Will send [employer] message with instructions on how to connect to our [facility] account. Explained how to prudence notes on the Jenifer kennedy for fasting BG and meals. [email or web address] NoteHNO ID: [id number] Author: KATHERINE NEGRETE APRN.TANK TESTER Service: ? Author Type: Nurse Practitioner Type: Progress Notes Filed: 12/24/2024 21:07 Note Text: NAME: Sanna Rendon CLINIC NO.: [id number] DATE OF SERVICE: December 23, 2024 (Penelope) [...] later in 2018. These were found in [place], [place]. I don't have access to these [...] a target-like rash shortly before presenting to [facility] in 2016 with headaches and was diagnosed [...] g/dL, and platelets a (more content not included)...[facility]08-26-2025 History of Present illness Narrative* Katherine Negrete APRN.TANK TESTER - 12/23/2024 11:50 AM EDT Images from the original note were not included. NAME: Sanna Rendon CLINIC NO.: [id number] DATE OF SERVICE: December 23, 2024 (Penelope) Some elements in this clinic note that are critical to medical decision making have been carefully reviewed and included from a prior clinic note dated: October 28, 2024 (Penelope) Additional Clinicians involved in Sanna Rendon's care: Jorge Mcwilliams, Humaira Gaviria, CC: Hypercoag state CASE SUMMARY / ASSESSMENT: 39 year old woman presents with a prior history of CVA in 2016 and an antiphospholipid antibody that was identified much later in 2018. These were found in [place], [place]. I don't have access to these [...] a target-like rash shortly before presenting to [facility] in 2016 with headaches and was diagnosed [...] Monge soon. When she hada stroke in [place], she had symptoms up to a month before: uncontrollable headache, BP was elevated, knee stiffness, and blurry vision. Right facial drooping and difficulty speaking [facility] She continues to take vitamins. Updated [...] [place] 13.1 [place] [facility] [place] [...] and at age 69. Both lived in [place], [place] - but she was adopted. She was not able to see ID in October and will be seeing Dr. Baugh next week. Also will have her see Dr. Hamlin for her clotting disorder and make any other recommendations to optimize her treatment. Updated Visit, October 08, 2020: Telephone only Received call from pt stating she was seen in [facility] [place] for numbness in her chest, throat, and extremities, and sob which has been worsening over the last week. We arranged a telephone visit for her toreview questions with me. Sanna Rendon is a 34 year old female seen for Hypercoagulable state and recent concerns and symptoms that required her to be seen at [facility] [place]. She went to the ER with Gradual worsening of breathing after progressive tingling of fingers and legs. She currently remains very fatigued even though she is sleeping well. Now recalls that before her stroke she remembers having a bull's eye rash and was seen with severe headaches in [place], [place] - was found to have a [...] root canal and was sent [place] [facility] for [...] history goes back to January [address] [facility] where she had persisting headaches and slurred speech followed by lower extremity weakness. This took a few months to resolve and she is back to her normal state of being but some point in time during her her next she was seen by Dr. Humera Hyde in [place] as well and was found to have [...] which included preparing to see the patient, [id number] patient care, completing clinical documentation, obtaining and/or reviewing separately obtained history, performing a medically appropriate examination, counseling and educating the pat ient/family/caregiver, ordering medications, tests, or procedures, independently interpreting results (not separately reported), and communicating results to the patient/family/caregiver. Katherine Negrete APRN.CNP Hematology and Oncology Services Provided at: [place], [place] CC: MD Wilton Day, [address] [place] [address] Humaira Gaviria MD [address] [place] [id number] MD Cosmo Kingston MD Michael Blank, MD documented in this encounterUniversity Hospitals Geneva Medical Center08-20-2025 History of Present illness Narrative* Alisa Saba APRN-TANK TESTER - 12/17/2024 3:30 PM EDT REASON FOR OFFICE VISIT: Video Visit via Real-time Synchronous Audiovisual Provider Location: [facility]- MEDICINE AT [address] [id number] Patient Location: Patient's home Video Visit Consent [...] that there are some limitations compared to [id number] evaluations. The patient consented to the presence [...] TSH 1.25 10/28/2024 No results found for: [id number] No results found for: CREATININE , BUN [...] by e-mail to: or by fax to: [phone] TIME OF CONSULTATION: 45 minutes with the patient, >50% in discussion and counseling, coordination of care which was [id number], review of records and communication back to referring provider. BRENNEN Guillen 12/17/24 1619 documented in this encounterMercy Health Perrysburg Hospital08-15-2025 Miscellaneous Notes* Telephone Encounter - PRISCILLA Sutherland - 12/12/2024 10:21 AM EDT Called Sanna back told her that I told Dr. Cortes about her starting Lantus last night and [...] verbalized understanding. documented in this encounterMercy Health Perrysburg Hospital08-15-2025 Telephone encounter Note* Telephone Encounter - PRISCILLA Sutherland - 12/12/2024 10:21 AM EDT Called Sanna back told her that I told Dr. Cortes about her starting Lantus last night and [...] APRN 12/17/2024. Sanna verbalized understanding. [facility] [employer] Work Phone: 1(123) 683-670908-15-2025 Miscellaneous Notes* Telephone Encounter - PRISCILLA Sutherland [...] tried higher fiber snacks in the evening. Web Marketing Coordinator told her that I would relay her concerns to [facility] physician and get back to her. Obtained blood sugars for this week and will scan them into her chart. documented in this encounterMercy Health Perrysburg Hospital08-15-2025 Telephone encounter Note* Telephone Encounter - [...] tried higher fiber snacks in the evening. Web Marketing Coordinator told her that I would relay her concerns to [facility] physician and get back to her. Obtained blood sugars for this week and will scan them into her chart. [email or web address] Work Phone: 1([phone]) 857-930508-14-2025 History of Present illness Narrative* Rosi Murray, [...] Diagnosis Date Noted 32 weeks gestation of ([facility]) 11/28/2019 Abdominal pain 06/12/2023 Acute bronchitis due to infection 06/12/2023 Acute on chronic vesicular eczema of hands and feet 11/15/2023 Anemia complicating childbirth ([facility]) 01/16/2020 Anticoagulant long-term use 02/22/2020 Antiphospholipid antibody positive 09/10/2017 Antiphospholipid antibody syndrome ([facility]) 07/07/2019 Anxiety 06/12/2023 Blood pressure elevated without history of HTN 11/15/2023 BMI 37.0-37.9, adult 11/15/2023 Cerebral infarction, unspecified ([facility]) 05/16/2019 Cerebrovascular accident (CVA) due to stenosis of middle cerebral artery ([facility]) 02/22/2020 Cervicalgia 02/05/2019 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 ([facility]) 01/08/2020 Coagulation defect, unspecified ([facility]) 02/05/2019 Cold intolerance 11/15/2023 Deficiency of other specified B group vitamins 05/16/2019 Deviated septum 11/15/2023 Dizziness and giddiness 02/05/2019 Dry mouth 11/15/2023 Dysfunction of eustachian tube 06/12/2023 Dyspnea 06/12/2023 Elevated blood pressure reading 11/15/2023 Encounter for supervision of normal , unspecified, first trimester ([facility]) 05/29/2019 Environmental allergies 11/15/2023 Fatigue 12/29/2016 First degree perineal laceration during delivery ([facility]) 01/16/2020 Frequency of micturition 02/19/2019 Genitourinary symptoms 08/19/2021 Gestational diabetes mellitus (GDM) affecting ([facility]) 01/26/2022 H/O: hypothyroidism 11/15/2023 Hematochezia 06/12/2023 [...] anemia 01/16/2020 Irregular uterine bleeding 11/15/2023 problem ([facility]) 06/12/2023 Less than 8 weeks gestation of ([facility]) 06/05/2019 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/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 02/05/2019 Migraine without aura and without status migrainosus, not intractable 09/12/2017 Morbid obesity ([facility]) 11/15/2023 Muscle fasciculation 08/19/2021 Nasal polyps 11/15/2023 Non-smoker 11/15/2023 NEETA (obstructive sleep apnea) 11/15/2023 Other acute postprocedural pain 02/03/2019 Other general symptoms and signs 10/28/2019 Other immediate hemorrhage ([facility]) 01/16/2020 Other specified noninflammatory disorders of vagina 02/21/2019 Pain in joint 12/29/2016 Palpitations 08/26/2019 Paresthesia of bilateral legs 11/15/2023 Pelvic and perineal pain 02/01/2019 Personal history of urinary (tract) infections 01/16/2020 Pre-diabetes 11/15/2023 Primary hypercoagulable state ([facility]) 08/01/2022 Pruritus, unspecified 01/02/2020 Psychogenic hyperventilation 06/12/2023 Raised antibody titer 09/25/2017 Right lower quadrant pain 11/15/2023 Right otitis externa 11/15/2023 Salivary gland swelling 11/15/2023 Single live ([facility]) 01/15/2020 Snoring 11/15/2023 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) 12/30/2019 Suspected severe acute respiratory syndrome coronavirus 2 (SARS-CoV-2) infection 06/12/2023 SVT (supraventricular tachycardia) ([facility]) 08/26/2019 Syncope and collapse 06/03/2018 Other bacterial [...] drainage of cyst WISDOM TOOTH EXTRACTION 2007 [place] teeth REVIEW OF SYSTEMS Review of Systems: [...] nursing note reviewed. Exam conducted with a advanced practice nurse psychotherapist present. Vitals: Estimated body mass index is 33.41 kg/m as calculated from the following: Height as of 11/19/23: 5' 6 . Weight as of this encounter: 207 lb. BP: 120/70 Patient's last menstrual period was 07/28/2024. ASSESSMENT & PLAN ICD-10-CM 1. 19 weeks gestation of ([facility]) Z3A.19 POCT urinalysis dipstick manually resulted 2. Second trimester ([facility]) Z34.92 POCT urinalysis dipstick manually resulted 3. Thyroid disease E07.9 4. Multigravida of advanced maternal age in second trimester ([facility]) O09.522 5. Gestational diabetes mellitus (GDM), antepartum, gestational diabetes method of control unspecified ([facility]) O24.419 Patient presents today for a [...] scan and Telemedicine with MFM provider in [place]. Documented by Rosi Murray LPN on behalf of: Wilton Herrmann DO documented in this encounterHawthorn Children's Psychiatric [id number] Miscellaneous Notes* Telephone Encounter - Anni Abreu CMA - 12/03/2024 3:01 PM EDT Left message with patient to call our office to schedule her next appt in 2 week with an PASTEURISER OPERATOR/PA. Left call back number and to press option 3 for scheduling. documented in this encounterMercy Health [facility]sburg Hospital08-06-2025 Telephone encounter Note* Telephone Encounter - Anni Abreu CMA - 12/03/2024 3:01 PM EDT Left message with patient to call our office to schedule her next appt in 2 week with an PASTEURISER OPERATOR/PA. Left call back number and to press option 3 for scheduling. [facility]08-06-2025 History of Present illness Narrative* Alisa Tori, VICTOR HUGO-TANK TESTER - 12/03/2024 2:00 PM EDT REASON FOR [...] starting insulin. She is being followed at [facility] due to GDMA2. States she [...] TSH 1.25 10/28/2024 No results found for: [id number] No results found for: CREATININE , BUN [...] baby. Little research has been done on senior care effects of Metformin exposure to the [...] by e-mail to: or by fax to: [phone] TIME OF CONSULTATION: 60 minutes with the patient, >50% in discussion and counseling, coordination of care which was [id number], review of records and communication back to referring provider. BRENNEN Guillen 12/03/24 1500 documented in this encounterSumma Health Barberton CampusVital Health Data Solutions Beaumont [id number] History of Present illness Narrative* Rosi Murray [...] Diagnosis Date Noted 32 weeks gestation of ([facility]) 11/28/2019 Abdominal pain 06/12/2023 Acute bronchitis due to infection 06/12/2023 Acute on chronic vesicular eczema of hands and feet 11/15/2023 Anemia complicating childbirth ([facility]) 01/16/2020 Anticoagulant long-term use 02/22/2020 Antiphospholipid antibody positive 09/10/2017 Antiphospholipid antibody syndrome ([facility]) 07/07/2019 Anxiety 06/12/2023 Blood pressure elevated without history of HTN 11/15/2023 BMI 37.0-37.9, adult 11/15/2023 Cerebral infarction, unspecified ([facility]) 05/16/2019 Cerebrovascular accident (CVA) due to stenosis of middle cerebral artery ([facility]) 02/22/2020 Cervicalgia 02/05/2019 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 ([facility]) 01/08/2020 Coagulation defect, unspecified ([facility]) 02/05/2019 Cold intolerance 11/15/2023 Deficiency of other specified B group vitamins 05/16/2019 Deviated septum 11/15/2023 Dizziness and giddiness 02/05/2019 Dry mouth 11/15/2023 Dysfunction of eustachian tube 06/12/2023 Dyspnea 06/12/2023 Elevated blood pressure reading 11/15/2023 Encounter for supervision of normal , unspecified, first trimester ([facility]) 05/29/2019 Environmental allergies 11/15/2023 Fatigue 12/29/2016 First degree perineal laceration during delivery ([facility]) 01/16/2020 Frequency of micturition 02/19/2019 Genitourinary symptoms 08/19/2021 Gestational diabetes mellitus (GDM) affecting ([facility]) 01/26/2022 H/O: hypothyroidism 11/15/2023 Hematochezia 06/12/2023 [...] anemia 01/16/2020 Irregular uterine bleeding 11/15/2023 problem ([facility]) 06/12/2023 Less than 8 weeks gestation of ([facility]) 06/05/2019 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/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 02/05/2019 Migraine without aura and without status migrainosus, not intractable 09/12/2017 Morbid obesity ([facility]) 11/15/2023 Muscle fasciculation 08/19/2021 Nasal polyps 11/15/2023 Non-smoker 11/15/2023 NEETA (obstructive sleep apnea) 11/15/2023 Other acute postprocedural pain 02/03/2019 Other general symptoms and signs 10/28/2019 Other immediate hemorrhage ([facility]) 01/16/2020 Other specified noninflammatory disorders of vagina 02/21/2019 Pain in joint 12/29/2016 Palpitations 08/26/2019 Paresthesia of bilateral legs 11/15/2023 Pelvic and perineal pain 02/01/2019 Personal history of urinary (tract) infections 01/16/2020 Pre-diabetes 11/15/2023 Primary hypercoagulable state ([facility]) 08/01/2022 Pruritus, unspecified 01/02/2020 Psychogenic hyperventilation 06/12/2023 Raised antibody titer 09/25/2017 Right lower quadrant pain 11/15/2023 Right otitis externa 11/15/2023 Salivary gland swelling 11/15/2023 Single live ([facility]) 01/15/2020 Snoring 11/15/2023 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) 12/30/2019 Suspected severe acute respiratory syndrome coronavirus 2 (SARS-CoV-2) infection 06/12/2023 SVT (supraventricular tachycardia) ([facility]) 08/26/2019 Syncope and collapse 06/03/2018 Other bacterial [...] Date AMA (advanced maternal age) multigravida 35+ ([facility]) Anemia Antiphospholipid syndrome ([facility]) Gestational diabetes ([facility]) Heartburn Hypothyroid Stroke ([facility]) HISTORY PAST MEDICAL HISTORY SOCIAL HISTORY Past Medical History: Diagnosis Date AMA (advanced maternal age) multigravida 35+ ([facility]) Anemia Antiphospholipid syndrome ([facility]) Gestational diabetes ([facility]) Heartburn Hypothyroid Stroke ([facility]) Social History [...] drainage of cyst WISDOM TOOTH EXTRACTION 2007 [place] teeth REVIEW OF SYSTEMS Review of Systems: [...] nursing note reviewed. Exam conducted with a advanced practice nurse psychotherapist present. Vitals: Estimated body mass index is 33.57 kg/m as calculated from the following: Height as of 11/19/23: 5' 6 . Weight as of this encounter: 208 lb. BP: 108/76 Patient's last menstrual period was 07/28/2024. ASSESSMENT & PLAN ICD-10-CM 1. Second trimester ([facility]) Z34.92 Alpha fetoprotein, maternal Alpha fetoprotein, maternal 2. 16 weeks gestation of ([facility]) Z3A.16 POCT urinalysis dipstick manually resulted 3. Screening, , for anatomic survey ([facility]) Z36.89 CANCELED: US OB 14+ weeks [...] of: Wilton Herrmann DO documented in this encounterHawthorn Children's Psychiatric [id number] Group counseling note* Group Note - Cindy [...] Face to face time was 100 minutes. [email or web address] Work Phone: [phone]) 755-145607-23-2025 Miscellaneous Notes* Group Note - Cindy Miller [...] 100 minutes. documented in this encounterMercy Health [facility]sburg Hospital07-09-2025 Telephone encounter Note* Telephone Encounter - Rachael Johnson RN - 11/05/2024 12:48 PM EDT Pt updated. She reports she is unable to take aspirin. It makes my electrolytes go out of whack. Ididn't take with my previous pregnancies and I am not comfortable taking this time either. She will continue with Lovenox, as recommended. Pt is scheduled for appt with turntable worker, 11/19/24, [facility]. She denies further questions, needs or concerns for our care team at this time. Appt verified for RTC Rachael Johnson RN [facility]07-09-2025 Miscellaneous Notes* Telephone Encounter - Rachael Johnson RN - 11/05/2024 12:48 PM EDT Pt updated. She reports she is unable to take aspirin. It makes my electrolytes go out of whack. Ididn't take with my previous pregnancies and I am not comfortable taking this time either. She will continue with Lovenox, as recommended. Pt is scheduled for appt with turntable worker, 11/19/24, [facility]. She denies further questions, needs or [...] note were not included. documented in this encounterUniversity Hospitals Geneva Medical Center07-09-2025 Telephone encounter Note * Telephone Encounter - Katherine Negrete APRN.CNP - 11/05/2024 12:29 PM EDT Spoke with Dr. Moscoso and she is to continue Lovenox 40 daily and add baby asa (81 mg) daily. Please also make sure she is following OB High risk. Labs acceptable at this time. Will monitor. Thanks, Katherine Negrete APRN.TANK TESTER [facility] Work Phone: 1(433) 367-151507-08-2025 Telephone encounter Note* Telephone Encounter - Abbie Jimenez PA-C - 11/04/2024 8:13 AM EDT Katherine saw this patient last and will be able to advise better of the plan of care. Abbie Jimenez PA-C [facility] Work Phone: 1(930) 369-424907-03-2025 History of Present illness Narrative* Rosi Murray [...] Diagnosis Date Noted 32 weeks gestation of ([facility]) 11/28/2019 Abdominal pain 06/12/2023 Acute bronchitis due to infection 06/12/2023 Acute on chronic vesicular eczema of hands and feet 11/15/2023 Anemia complicating childbirth ([facility]) 01/16/2020 Anticoagulant long-term use 02/22/2020 Antiphospholipid antibody positive 09/10/2017 Antiphospholipid antibody syndrome ([facility]) 07/07/2019 Anxiety 06/12/2023 Blood pressure elevated without history of HTN 11/15/2023 BMI 37.0-37.9, adult 11/15/2023 Cerebral infarction, unspecified ([facility]) 05/16/2019 Cerebrovascular accident (CVA) due to stenosis of middle cerebral artery ([facility]) 02/22/2020 Cervicalgia 02/05/2019 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 ([facility]) 01/08/2020 Coagulation defect, unspecified ([facility]) 02/05/2019 Cold intolerance 11/15/2023 Deficiency of other specified B group vitamins 05/16/2019 Deviated septum 11/15/2023 Dizziness and giddiness 02/05/2019 Dry mouth 11/15/2023 Dysfunction of eustachian tube 06/12/2023 Dyspnea 06/12/2023 Elevated blood pressure reading 11/15/2023 Encounter for supervision of normal , unspecified, first trimester ([facility]) 05/29/2019 Environmental allergies 11/15/2023 Fatigue 12/29/2016 First degree perineal laceration during delivery ([facility]) 01/16/2020 Frequency of micturition 02/19/2019 Genitourinary symptoms 08/19/2021 Gestational diabetes mellitus (GDM) affecting ([facility]) 01/26/2022 H/O: hypothyroidism 11/15/2023 Hematochezia 06/12/2023 [...] anemia 01/16/2020 Irregular uterine bleeding 11/15/2023 problem ([facility]) 06/12/2023 Less than 8 weeks gestation of ([facility]) 06/05/2019 penitentiary (current) use of 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/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 02/05/2019 Migraine without aura and without status migrainosus, not intractable 09/12/2017 Morbid obesity ([facility]) 11/15/2023 Muscle fasciculation 08/19/2021 Nasal polyps 11/15/2023 Non-smoker 11/15/2023 NEETA (obstructive sleep apnea) 11/15/2023 Other acute postprocedural pain 02/03/2019 Other general symptoms and signs 10/28/2019 Other immediate hemorrhage ([facility]) 01/16/2020 Other specified noninflammatory disorders of vagina 02/21/2019 Pain in joint 12/29/2016 Palpitations 08/26/2019 Paresthesia of bilateral legs 11/15/2023 Pelvic and perineal pain 02/01/2019 Personal history of urinary (tract) infections 01/16/2020 Pre-diabetes 11/15/2023 Primary hypercoagulable state ([facility]) 08/01/2022 Pruritus, unspecified 01/02/2020 Psychogenic hyperventilation 06/12/2023 Raised antibody titer 09/25/2017 Right lower quadrant pain 11/15/2023 Right otitis externa 11/15/2023 Salivary gland swelling 11/15/2023 Single live ([facility]) 01/15/2020 Snoring 11/15/2023 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) 12/30/2019 Suspected severe acute respiratory syndrome coronavirus 2 (SARS-CoV-2) infection 06/12/2023 SVT (supraventricular tachycardia) ([facility]) 08/26/2019 Syncope and collapse 06/03/2018 Other bacterial [...] Date AMA (advanced maternal age) multigravida 35+ ([facility]) Anemia Antiphospholipid syndrome ([facility]) Gestational diabetes ([facility]) Heartburn Hypothyroid Stroke ([facility]) HISTORY PAST MEDICAL HISTORY SOCIAL HISTORY Past Medical History: Diagnosis Date AMA (advanced maternal age) multigravida 35+ ([facility]) Anemia Antiphospholipid syndrome ([facility]) Gestational diabetes ([facility]) Heartburn Hypothyroid Stroke ([facility]) Social History Tobacco Use Smoking status: Never [...] drainage of cyst WISDOM TOOTH EXTRACTION 2007 [place] teeth REVIEW OF SYSTEMS Review of Systems: [...] nursing note reviewed. Exam conducted with a advanced practice nurse psychotherapist present. Vitals: Estimated body mass index is 33.81 kg/m as calculated from the following: Height as of 11/19/23: 5' 6 . Weight as of this encounter: 209 lb 8 oz. BP: 110/76 Patient's last menstrual period was 07/28/2024. ASSESSMENT & PLAN ICD-10-CM 1. Second trimester (HHS-HCC) Z34.92 POCT urinalysis dipstick manually resulted 2. 13 weeks gestation of ([facility]) Z3A.13 3. Thyroid disease E07.9 4. Multigravida of advanced maternal age in second trimester ([facility]) O09.522 New OB: Patient presents today [...] or undercooked meat, and stay away from [facility]. Patient has been consulted regarding any further do's and don'tsof . Patient voiced understanding and all questions and concerns were answered. Patient is currently on 40 Lovenox and will be referred to [facility] for recommendations/co-management throughout . Discussed concerns [...] of: Wilton Herrmann DO documented in this encounterHawthorn Children's Psychiatric [id number] Telephone encounter Note* Telephone Encounter - Valeri Yeung RN - 10/30/2024 8:30 AM EDT Labs resulted. Please advise. Valeri Yeung RN [facility]07-01-2025 Telephone encounter Note* Telephone Encounter - Roberta Haskins - 10/28/2024 2:52 PM EDT Images from the original note were not included. [facility]07-01-2025 NoteHNO ID: [id number] Author: KATHERINE NEGRETE APRN.TANK TESTER Service: ? Author Type: Nurse Practitioner Type: Progress Notes Filed: 10/29/2024 21:44 Note Text: NAME: Sanna Rendon CLINIC NO.: [id number] DATE OF SERVICE: October 28, 2024 (Penelope) [...] later in 2018. These were found in [place], [place]. I don't have access to these [...] a target-like rash shortly before presenting to [facility] in 2016 with headaches and was diagnosed [...] vision changes both have (more content not included)...[facility]07-01-2025 History of Present illness Narrative* Katherine Negrete APRN.TANK TESTER - 10/28/2024 2:33 PM EDT Images from the original note were not included. NAME: Sanna Rendon CLINIC NO.: [id number] DATE OF SERVICE: October 28, 2024 (Penelope) Some elements in this clinic note that are critical to medical decision making have been carefully reviewed and included from a prior clinic note dated: October 10, 2024 (Levon) Additional Clinicians involved in Sanna Rendon's care: Jorge Mcwilliams, Humaira Gaviria, CC: Hypercoag state CASE SUMMARY / ASSESSMENT: 39 year old woman presents with a prior history of CVA in 2016 and an antiphospholipid antibody that was identified much later in 2018. These were found in [place], [place]. I don't have access to these [...] a target-like rash shortly before presenting to [facility] in 2016 with headaches and was diagnosed [...] Monge soon. When she hada stroke in [place], she had symptoms up to a month before: uncontrollable headache, BP was elevated, knee stiffness, and blurry vision. Right facial drooping and difficulty [facility] to [facility]. Updated [...] stayed [place] Lovenox H[place] 13.1 [place] [facility] [place] [...] and at age 69. Both lived in [place], [place] - but she was adopted. She was not able to see ID in October and will be seeing Dr. Baugh next week. Also will have her see Dr. Hamlin for her clotting disorder and make any other recommendations to optimize her treatment. Updated Visit, October 08, 2020: Telephone only Received call from pt stating she was seen in [facility] [place] for numbness in her chest, throat, and extremities, and sob which has been worsening over the last week. We arranged a telephone visit for her chanw questions with me. Sanna Rendon is a 34 year old female seen for Hypercoagulable state and recent concerns and symptoms that required her to be seen at [facility] [place]. She went to the ER with Gradual worsening of breathing after progressive tingling of fingers and legs. She currently remains very fatigued even though she is sleeping well. Now recalls that before her stroke she remembers having a bull's eye rash and was seen with severe headaches in [place], [place] - was found to have a [...] root canal and was sent to [facility] for [...] history goes back to January [address] [facility] where she had persisting headaches and slurred speech followed by lower extremity weakness. This took a few months to resolve and she is back to her normal state of being but some point in time during her her next she was seen by Dr. Humera Hyde in [place] as well and was found to have [...] which included preparing to see the patient, eoty-gr-alxs patient care, completing clinical documentation, obtaining and/or reviewing separately obtained history, performing a medically appropriate examination, counseling and educating the pat ient/family/caregiver, ordering medications, tests, or procedures, independently interpreting results (not separately reported), and communicating results to the patient/family/caregiver. Katherine Negrete APRN.TOR Hematology [facility] Oncology Services Provided at: [place], [place] CC: MD Chalino Day[facility] [address] [place] [address] Humaira Gaviria MD [address] [place] [id number] MD Cosmo Kingston MD Michael Blank, MD documented in this encounterUniversity Hospitals [facility]06-27-2025 Telephone encounter Note * Telephone Encounter - Kaur Dunham MA - 10/24/2024 2:14 PM EDT New orders may need placed for appt on 10/28. Kaur Dunham MA [facility]06-27-2025 Miscellaneous Notes* Telephone Encounter - Kaur Dunham MA - 10/24/2024 2:14 PM EDT New orders may need placed for appt on 10/28. Kaur Dunham MA documented in this encounterUniversity Hospitals Geneva Medical Center06-16-2025 Miscellaneous Notes* Telephone Encounter - Margo Khan RN - 10/13/2024 12:14 PM EDT Attempted to contact patient x3, call cannot be completed, cannot receive calls at this time. Unable to leave a voicemail. documented in this encounterMer[facility]06-[facility] Telephone encounter Note* Telephone Encounter - Margo Khan RN - 10/13/2024 12:14 PM EDT Attempted to contact patient x3, call cannot be completed, cannot receive calls at this time. Unable to leave a voicemail. [facility]06-05-2025 History of Present illness Narrative* Lala [...] Antiphospholipid antibody positive 09/10/2017 Antiphospholipid antibody syndrome ([facility]) 07/07/2019 Anxiety 06/12/2023 Blood pressure elevated without history of HTN 11/15/2023 BMI 37.0-37.9, adult 11/15/2023 Cerebral infarction, unspecified 05/16/2019 Cerebrovascular accident (CVA) due to stenosis of middle cerebral artery ([facility]) 02/22/2020 Cervicalgia 02/05/2019 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 [...] Less than 8 weeks gestation of 06/05/2019 penitentiary (current) use of 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/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 02/05/2019 Migraine without aura and without status migrainosus, not intractable ([facility]) 09/12/2017 Morbid obesity ([facility]) 11/15/2023 Muscle fasciculation 08/19/2021 Nasal polyps 11/15/2023 [...] infections 01/16/2020 Pre-diabetes 11/15/2023 Primary hypercoagulable state ([facility]) 08/01/2022 Pruritus, unspecified 01/02/2020 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[facility]) 06/12/2023 Raised antibody titer 09/25/2017 Right lower quadrant pain 11/15/2023 Right otitis externa 11/15/2023 Salivary gland swelling 11/15/2023 Single live 01/15/2020 Snoring 11/15/2023 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) 12/30/2019 Suspected severe acute respiratory syndrome coronavirus 2 (SARS-CoV-2) infection 06/12/2023 SVT (supraventricular tachycardia) ([facility]) 08/26/2019 Syncope and collapse 06/03/2018 Other bacterial [...] (CMS/HCC) Gestational diabetes Heartburn Hypothyroid (CMS/HCC) Stroke ([facility]) Family History Problem Relation Name Age of [...] drainage of cyst WISDOM TOOTH EXTRACTION 2007 [place] teeth Allergies Allergen Reactions Ciprofloxacin GI intolerance [...] TSH Nurse Note: Patient desires to have [place] billion to one. Pt was advised to [...] or undercooked meat, and stay away from [facility]. Patient has also been advised to [...] by: Lala Hess MA documented in this encounterHawthorn Children's Psychiatric [id number] NotePatient Education Infectious Disease Upper Respiratory Infection, [...] to help relieve symptoms, such as: ??? Zseg-ufa-xaxodfj cold medicines. ??? Cough suppressants. Coughing is [...] other clear broths. General instructions ??? Take bfve-hwt-luxsmby and prescription medicines only as told by [...] and water are not available, use hand registered safety engineer. ??? Avoid touching your mouth, face, eyes, [...] stiff neck. ? (more content not included)...[facility]05-07-2025 Miscellaneous Notes* Telephone Encounter - Rachael [...] advise Rachael Johnson RN documented in this encounterUniversity Hospitals Geneva Medical Center05-07-2025 Telephone encounter Note * Telephone Encounter - Rachael Johnson RN - 09/03/2024 1:25 PM EDT Pt notified and appt for September. She denies any further questions, needs or concerns at thistime. Rachael Johnson RN [facility]05-07-2025 Telephone encounter Note* Telephone Encounter - Kristofer Calix MD - 09/03/2024 12:51 PM EDT No change in meds. [facility]05-06-2025 Telephone encounter Note* Telephone Encounter - Rachael Johnson RN - 09/02/2024 9:37 AM EDT Pt left a voicemail to inform she is approximately 5 weeks . She is asking any recommendations on med changes. Pt missed today's appt. Called and left VM to please call and schedule missed follow up MUNIRA. Fely: Please advise Rachael Johnson RN [facility]04-29-2025 Telephone encounter Note* Telephone Encounter - Serina Dawson MA - 08/26/2024 3:41 PM EDT Patient has an appt on 08/27/24. Would you like labs, if so place orders. Serina Dawson MA [facility]04-29-2025 Miscellaneous Notes* Telephone Encounter - Serina Horton MA - 08/26/2024 3:41 PM EDT Patient has an appt on 08/27/24. Would you like labs, if so place orders. Serina Dawson MA documented in this encounterUniversity Hospitals Geneva Medical Center04-08-2025 Evaluation + Plan note Future Scheduled Tests Laboratory* HgbA1c 08/05/24 * HgbA1c 11/04/24 Radiology* CT Soft Tissue Neck w/ Contrast 11/12/23 [facility] 03-27-2025 History of Present illness Narrative* Rosi Spitler, LAUNDRY MARKER SUPERVISOR - 07/24/2024 11:50 AM EDT Reason for [...] Antiphospholipid antibody positive 09/10/2017 Antiphospholipid antibody syndrome ([facility]/HCC) 07/07/2019 Anxiety 06/12/2023 Blood pressure elevated without history of HTN 11/15/2023 BMI 37.0-37.9, adult 11/15/2023 Cerebral infarction, unspecified ([facility]/HCC) 05/16/2019 Cerebrovascular accident (CVA) due to stenosis of middle cerebral artery ([facility]/HCC) 02/22/2020 Cervicalgia 02/05/2019 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 Coagulation defect, unspecified ([facility]/HCC) 02/05/2019 Cold intolerance 11/15/2023 Deficiency of [...] Less than 8 weeks gestation of 06/05/2019 penitentiary (current) use of 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/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 02/05/2019 Migraine without aura and without status migrainosus, not intractable ([facility]) 09/12/2017 Morbid obesity ([facility]) 11/15/2023 Muscle fasciculation 08/19/2021 Nasal polyps 11/15/2023 [...] 2 (SARS-CoV-2) infection 06/12/2023 SVT (supraventricular tachycardia) ([facility]/HCC) 08/26/2019 Syncope and collapse 06/03/2018 Other [...] drainage of cyst WISDOM TOOTH EXTRACTION 2007 [place] teeth REVIEW OF SYSTEMS Review of Systems: [...] nursing note reviewed. Exam conducted with a advanced practice nurse psychotherapist present. Vitals: Estimated body mass index is [...] of: Wilton Herrmann DO documented in this encounterHawthorn Children's Psychiatric [id number] NotePatient Education Emergency Medicine Bradycardia, Adult Bradycardia is a ymdcrq-nqyp-yhklbh heartbeat. A normal resting heart rate for [...] provider. ??? Follow a heart-healthy diet. A clinical nutrition manager (dietitian) can help educate you about healthy [...] liquor (44 mL). General instructions ??? Take wcpb-qnm-zeybbnf and prescription medicines only as told by [...] heartbeat (palpitations). ??? (more content not included)...[facility]03-03-[facility] Hospital Discharge instructions Patient Education 06/30/2024 [...] Follow these instructions at home: Medicines Give jdmp-iom-tvavcow and prescription medicines only as told by [...] find more information PANDAS Network: pandasnetwork.org National [place] of Mental Health: [facility].nih.gov Contact a health care provider if: Your [...] the National Suicide Prevention Lifeline at or 910. This is open 24 hours a day. Text the Crisis Text Line at 724333. Summary Pediatric autoimmune neuropsychiatric disorders associated with [...] provider. Document Revised: 01/09/2022 Document Reviewed: 01/09/2022 [employer] Patient Education 2023 [employer]. 06/30/2024 09:20:50 Common Variable Immunodeficiency Common Variable [...] Follow these instructions at home: Medicines Take susx-iyx-rvtnaux and prescription medicines only as told by [...] disease. Where to find more information National [place] of Allergy and Infectious Disease: www.niaid.nih.gov Contact [...] risk for frequent or unusual infections. Take aohu-jce-ngtozph and prescription medicines only as told by [...] provider. Document Revised: 11/18/2021 Document Reviewed: 11/18/2021 [employer] Patient Education 2023 [employer]. 06/30/2024 09:18:06 DASH Eating Plan DASH Eating [...] Dairy Whole or 2% milk, cream, and iqkq-pga-nyza. Whole or full-fat cream cheese. Whole-fat or [...] more information National Heart, Lung, and Blood Dakota (NHLBI): nhlbi.nih.gov [place] Heart Association (AHA): heart.org Academy of Nutrition and Dietetics: eatright.org National Kidney Foundation (NKF): kidney.org This information is not intended to replace advice given to you by your health care provider. Make sure you discuss any questions you have with your health care provider. Document Revised: 05/03/2023 Document Reviewed: 05/03/2023 Elsevier Patient Education 2023 [employer] Follow Up Care 06/25/2024 13:53:59 With:PRAVEEN RESENDEZ FAAFP, CHRIS Perez, PED Address: [place] [address]- When:Within 2 Month(s) [facility] 03-03-2025 NotePatient Education Immunology Common [...] these instructions at home: Medicines ??? Take oevt-zhc-xedtjeo and prescription medicines only as told by [...] Where to find more information ??? National [place] of Allergy and Infectious Disease: www.niaid.nih.gov Contact a health care provider if: ??? You have a fever. ??? You have any symptoms of infection such as chills, worsening cough, or severe earache. ??? You make high-pitched whistling sounds when you breathe, most often when you breathe out (wheeze). 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 Coagulation defect, unspecified ([facility]) 02/05/2019 Cold intolerance 11/15/2023 Deficiency of other [...] Less than 8 weeks gestation of 06/05/2019 penitentiary (current) use of 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/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 02/05/2019 Migraine without aura and without status migrainosus, not intractable ([facility]) 09/12/2017 Morbid obesity ([facility]) 11/15/2023 Muscle fasciculation 08/19/2021 Nasal polyps 11/15/2023 [...] infections 01/16/2020 Pre-diabetes 11/15/2023 Primary hypercoagulable state ([facility]) 08/01/2022 Pruritus, unspecified 01/02/2020 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[facility]) 06/12/2023 Raised antibody titer 09/25/2017 Right lower quadrant pain 11/15/2023 Right otitis externa 11/15/2023 Salivary gland swelling 11/15/2023 Single live 01/15/2020 Snoring 11/15/2023 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) 12/30/2019 Suspected severe acute respiratory syndrome coronavirus 2 (SARS-CoV-2) infection 06/12/2023 SVT (supraventricular tachycardia) ([facility]) 08/26/2019 Syncope and collapse 06/03/2018 Other bacterial infections of unspecified site 06/27/2019 Thrombocytopenia, unspecified ([facility]) 11/20/2019 Hypoglycemia 06/12/2023 Unspecified condition associated with female genital organs and menstrual cycle 05/09/2019 Unspecified ovarian cyst, right side 02/06/2019 Urinary tract infection 10/16/2019 Referred otalgia of right ear 11/19/2023 LPRD (laryngopharyngeal reflux disease) 11/19/2023 Resolved Ambulatory Problems Diagnosis Date Noted No Resolved Ambulatory Problems Past Medical History: Diagnosis Date AMA (advanced maternal age) multigravida 35+ Anemia Antiphospholipid syndrome ([facility]/HCC) Gestational diabetes Heartburn Hypothyroid ([facility]) Stroke ([facility]) HISTORY PAST MEDICAL HISTORY SOCIAL HISTORY Past Medical History: Diagnosis Date AMA (advanced maternal age) multigravida 35+ Anemia Antiphospholipid syndrome ([facility]/HCC) Gestational diabetes Heartburn Hypothyroid ([facility]) Stroke ([facility]) Social History Tobacco Use Smoking status: Never [...] drainage of cyst WISDOM TOOTH EXTRACTION 2007 [place] teeth REVIEW OF SYSTEMS Review of Systems: [...] nursing note reviewed. Exam conducted with a advanced practice nurse psychotherapist present. Vitals: Estimated body mass index is [...] and spouse did have intercourseyesterday. Patients LMP 02/11/25 that lasted 3 days and a week [...] of: Wilton Herrmann DO documented in this encounterHawthorn Children's Psychiatric [id number] Hospital Discharge instructions Patient Education 06/09/2024 14:23:47 [...] Do not chew gum. General instructions Take lwib-rxi-xsrkgeg and prescription medicines only as told by [...] important. Where to find more information National [place] of Dental and Craniofacial Research: www.nidcr.nih.gov Contact [...] provider. Document Revised: 11/27/2021 Document Reviewed: 11/27/2021 [employer] Patient Education 2023 [employer]. Follow Up Care 06/06/2024 11:26:13 With:PRAVEEN RESENDEZ FAAFP, Penelope Tony, CHRIS, PED Address: [address], [place] [address]- When:Within 6 Month(s) [facility] 02-10-2025 NotePatient Education Orthopedics Temporomandibular [...] not chew gum. General instructions ??? Take nyhy-pnj-yphokfa and prescription medicines only as told by [...] Where to find more information ??? National [place] of Dental and Craniofacial Research: www.nidcr.nih.gov Contact [...] provider. Document Revised: 11/27/2021 Document Reviewed: 11/27/2021 [employer] Patient Education ? 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 Coagulation defect, unspecified ([facility]) 02/05/2019 Cold intolerance 11/15/2023 Deficiency of other [...] Less than 8 weeks gestation of 06/05/2019 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/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 02/05/2019 Migraine without aura and without status migrainosus, not intractable ([facility]) 09/12/2017 Morbid obesity ([facility]) 11/15/2023 Muscle fasciculation 08/19/2021 Nasal polyps 11/15/2023 [...] infections 01/16/2020 Pre-diabetes 11/15/2023 Primary hypercoagulable state ([facility]) 08/01/2022 Pruritus, unspecified 01/02/2020 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[facility]) 06/12/2023 Raised antibody titer 09/25/2017 Right lower quadrant pain 11/15/2023 Right otitis externa 11/15/2023 Salivary gland swelling 11/15/2023 Single live 01/15/2020 Snoring 11/15/2023 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) 12/30/2019 Suspected severe acute respiratory syndrome coronavirus 2 (SARS-CoV-2) infection 06/12/2023 SVT (supraventricular tachycardia) ([facility]) 08/26/2019 Syncope and collapse 06/03/2018 Other bacterial infections of unspecified site 06/27/2019 Thrombocytopenia, unspecified ([facility]) 11/20/2019 Hypoglycemia 06/12/2023 Unspecified condition associated with [...] drainage of cyst WISDOM TOOTH EXTRACTION 2007 [place] teeth REVIEW OF SYSTEMS Review of Systems: [...] nursing note reviewed. Exam conducted with a advanced practice nurse psychotherapist present. Vitals: Estimated body mass index is [...] had recent H[place] [facility] [place] lab value was 6. Documented by Renate Vegas LPN on behalf of: Wilton Herrmann DO documented in this encounterHawthorn Children's Psychiatric [id number] Telephone encounter Note* Telephone Encounter - Taylor Escudero - 05/28/2024 1:45 PM EST Triage to call with iron results [facility]01-29-2025 Miscellaneous Notes* Telephone Encounter - Taylor Escudero - 05/28/2024 1:45 PM EST Triage to call with iron results documented in this encounterUniversity Hospitals Geneva Medical Center01-29-2025 Instructions* Patient Instructions* Nathaly Florence - 05/28/2024 1:44 PM EST Triage to call iron results Continue Lovenox - patient prefers 40 mg (rather than rec 80mg) Encouraged her to reconsider Take B12 supplement in the form of a sublingual tablet RTC in 3 months Labs same day or 2-7 days prior documented in this encounterUniversity Hospitals Geneva Medical Center01-29-2025 History of Present illness Narrative* Kristofer Calix MD - 05/28/2024 1:00 PM EST Images from the original note were not included. NAME: Sanna Rendon CLINIC NO.: [id number] DATE OF SERVICE: May 28, 2024 (Levon) [...] later in 2018. These were found in [place], [place]. I don't have access to these [...] a target-like rash shortly before [place] [facility] in 2015 with headaches and was diagnosed [...] Monge soon. When she hada stroke in [place], she had symptoms up to a month before: uncontrollable headache, BP was elevated, knee stiffness, and blurry vision. Right facial drooping and difficulty [facility] She continues to take vitamins. Updated [...] [place] 13.1 [place] [facility] [place] [...] and at age 69. Both lived in [place], [place] - but she was adopted. She was not able to see ID in October and will be seeing Dr. Baugh next week. Also will have her see Dr. Hamlin for her clotting disorder and make any other recommendations to optimize her treatment. Updated Visit, October 08, 2020: Telephone only Received call from pt stating she was seen in [facility] [place] for numbness in her chest, throat, and extremities, and sob which has been worsening over the last week. We arranged a telephone visit for her toreview questions with me. Sanna Rendon is a 34 year old female seen for Hypercoagulable state and recent concerns and symptoms that required her to be seen at [facility]. She went to the ER with Gradual worsening of breathing after progressive tingling of fingers and legs. She currently remains very fatigued even though she is sleeping well. Now recalls that before her stroke she remembers having a bull's eye rash and was seen with severe headaches in [place], [place] - was found to have a [...] root canal and was sent [place] [facility] [place] for [...] history goes back to January [address] [facility] where she had persisting headaches and slurred speech followed by lower extremity weakness. This took a few months to resolve and she is back to her normal state of being but some point in time during her her next she was seen by Dr. Humera Hyde in [place] as well and was found to have [...] which included preparing to see the patient, yqlt-zw-svbh patient care, completing clinical documentation, performing a medically appropriate examination, counseling and educating the patient/family/caregiver, ordering medications, tests, or p rocedures, independently interpreting results (not separately reported), communicating results to the patient/family/caregiver, and care coordination (not separately reported). Kristofer Calix MD, CPE Hematology and Oncology Services Provided at: [place], [place] Scribe Attestation: This note was scribed by Nathaly Florence on May 28, 2024 under the direction and supervision of Dr. rKistofer Calix. I attest that all of the information documented is correct to the best of myknowledge. Provider Attestation: I, Kristofer Calix MD, attest that all information documented by the above scribe is correct, and was supervised by me and under my direction. CC: MD Wilton Day, [address] [place] [address] Humaira Gaviria MD [address] [place] [address] [place] [address] MD Cosmo Kingston MD Michael Blank, MD documented in this encounterUniversity Hospitals Geneva Medical Center01-29-2025 NoteHNO ID: [id number] Author: KRISTOFER CALIX MD Service: ? Author Type: Physician Type: Progress Notes Filed: 05/29/2024 09:13 Note Text: NAME: Sanna Rendon CLINIC NO.: [id number] DATE OF SERVICE: May 28, 2024 ([place]) [...] later in 2018. These were found in [place], [place]. I don't have access to these [...] a target-like rash shortly before presenting to [facility] in 2016 with headaches and was diagnosed [...] soon. When she had a stroke in [place], she had symptoms up to a month [...] breast feeding. Updated Visit, (more content not included)...[facility] 05-14-2024 Telephone encounter Note* Telephone Encounter - Rachael Johnson RN - 05/14/2024 10:15 AM EST Pt called to inform she had a miscarriage, Sunday (05/10/24) Asking if any additional blood work was needed from out standpoint. Pt aware we will be checking her CBC for any signs of anemia and her iron studies for deficiency. 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 request any additional testing, we can certainly draw with her appt 05/21 (will just need to fax orders). She denies any further questions needs or concerns at this time. MARSHA Rushk: YANET [facility]01-15-2025 Miscellaneous Notes* Telephone Encounter - Rachael Johnson RN - 05/14/2024 10:15 AM EST Pt called to inform she had a miscarriage, Sunday (05/10/24) Asking if any additional blood work was needed from out standpoint. Pt aware we will be checking her CBC for any signs of anemia and her iron studies for deficiency. 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 request any additional testing, we can certainly draw with her appt 05/21 (will just need to fax orders). She denies any further questions needs or concerns at this time. MARSHA Rushk: YANET documented in this encounterUniversity Hospitals Geneva Medical Center01-15-2025 Telephone encounter Note * Telephone [...] thinnersat follow up appointment. PVU--Rosi Presley LPN [facility] [id number] Miscellaneous Notes* Telephone Encounter - Rosi Murray [...] appointment. PVU--Rosi Presley LPN documented in this encounterHawthorn Children's Psychiatric [id number] History of Present illness Narrative* Pamela Walter [...] Less than 8 weeks gestation of 06/05/2019 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/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 02/05/2019 Migraine without aura and without status migrainosus, not intractable ([facility]) 09/12/2017 Morbid obesity ([facility]) 11/15/2023 Muscle fasciculation 08/19/2021 Nasal polyps 11/15/2023 [...] infections 01/16/2020 Pre-diabetes 11/15/2023 Primary hypercoagulable state ([facility]) 08/01/2022 Pruritus, unspecified 01/02/2020 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[facility]) 06/12/2023 Raised antibody titer 09/25/2017 Right lower quadrant pain 11/15/2023 Right otitis externa 11/15/2023 Salivary gland swelling 11/15/2023 Single live 01/15/2020 Snoring 11/15/2023 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) 12/30/2019 Suspected severe acute respiratory syndrome coronavirus 2 (SARS-CoV-2) infection 06/12/2023 SVT (supraventricular tachycardia) ([facility]) 08/26/2019 Syncope and collapse 06/03/2018 Other bacterial infections of unspecified site 06/27/2019 Thrombocytopenia, unspecified ([facility]) 11/20/2019 Hypoglycemia 06/12/2023 Unspecified condition associated with female genital organs and menstrual cycle 05/09/2019 Unspecified ovarian cyst, right side 02/06/2019 Urinary tract infection 10/16/2019 Referred otalgia of right ear 11/19/2023 LPRD (laryngopharyngeal reflux disease) 11/19/2023 Resolved Ambulatory Problems Diagnosis Date Noted No Resolved Ambulatory Problems Past Medical History: Diagnosis Date AMA (advanced maternal age) multigravida 35+ Anemia Antiphospholipid syndrome ([facility]) Gestational diabetes Heartburn Hypothyroid ([facility]) Stroke ([facility]) HISTORY PAST MEDICAL HISTORY SOCIAL HISTORY Past Medical History: Diagnosis Date AMA (advanced maternal age) multigravida 35+ Anemia Antiphospholipid syndrome ([facility]) Gestational diabetes Heartburn Hypothyroid ([facility]) Stroke ([facility]) Social History Tobacco Use Smoking status: Never [...] drainage of cyst WISDOM TOOTH EXTRACTION 2007 [place] teeth REVIEW OF SYSTEMS Review of Systems: [...] nursing note reviewed. Exam conducted with a advanced practice nurse psychotherapist present. Vitals: Estimated body mass index is [...] urinalysis dipstick manually resulted documented in this encounterHawthorn Children's Psychiatric [id number] History of Present illness Narrative* Ariane Jsoeph LPN - 04/04/2024 10:00 AM EST Reason for [...] Antiphospholipid antibody positive 09/10/2017 Antiphospholipid antibody syndrome ([facility]) 07/07/2019 Anxiety 06/12/2023 Blood pressure elevated without history of HTN 11/15/2023 BMI 37.0-37.9, adult 11/15/2023 Cerebral infarction, unspecified ([facility]) 05/16/2019 Cerebrovascular accident (CVA) due to stenosis of middle cerebral artery ([facility]) 02/22/2020 Cervicalgia 02/05/2019 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 Coagulation defect, unspecified ([facility]) 02/05/2019 Cold intolerance 11/15/2023 Deficiency of other [...] Less than 8 weeks gestation of 06/05/2019 penitentiary (current) use of 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/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 02/05/2019 Migraine without aura and without status migrainosus, not intractable ([facility]) 09/12/2017 Morbid obesity ([facility]) 11/15/2023 Muscle fasciculation 08/19/2021 Nasal polyps 11/15/2023 [...] infections 01/16/2020 Pre-diabetes 11/15/2023 Primary hypercoagulable state ([facility]) 08/01/2022 Pruritus, unspecified 01/02/2020 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[facility]) 06/12/2023 Raised antibody titer 09/25/2017 Right lower quadrant pain 11/15/2023 Right otitis externa 11/15/2023 Salivary gland swelling 11/15/2023 Single live 01/15/2020 Snoring 11/15/2023 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) 12/30/2019 Suspected severe acute respiratory syndrome coronavirus 2 (SARS-CoV-2) infection 06/12/2023 SVT (supraventricular tachycardia) ([facility]) 08/26/2019 Syncope and collapse 06/03/2018 Other bacterial infections of unspecified site 06/27/2019 Thrombocytopenia, unspecified ([facility]) 11/20/2019 Hypoglycemia 06/12/2023 Unspecified condition associated with female genital organs and menstrual cycle 05/09/2019 Unspecified ovarian cyst, right side 02/06/2019 Urinary tract infection 10/16/2019 Referred otalgia of right ear 11/19/2023 LPRD (laryngopharyngeal reflux disease) 11/19/2023 Resolved Ambulatory Problems Diagnosis Date Noted No Resolved Ambulatory Problems Past Medical History: Diagnosis Date AMA (advanced maternal age) multigravida 35+ Anemia Antiphospholipid syndrome ([facility]) Gestational diabetes Heartburn Hypothyroid ([facility]) Stroke ([facility]) Family History Problem Relation Name Age of [...] drainage of cyst WISDOM TOOTH EXTRACTION 2007 [place] teeth Allergies Allergen Reactions Ciprofloxacin GI intolerance [...] or undercooked meat, and stay away from [facility]. Patient has also been advised to [...] by: Ariane Joseph LPN documented in this encounterHawthorn Children's Psychiatric [id number] Telephone encounter Note* Telephone Encounter - Rachael Johnson RN - 02/28/2024 8:21 AM EDT Pt aware and agreeable to plan of care. Pt denies any further questions, needs or concerns at this time. Appt verified for lab/follow up Rachael Johnson RN [facility]10-31-2024 Miscellaneous Notes* Telephone Encounter - [...] advise Rachael Johnson RN documented in this encounterUniversity Hospitals Geneva Medical Center10-30-2024 Telephone encounter Note * Telephone Encounter - Kristofer Calix MD - 02/27/2024 4:36 PM EDT She can take the iron with prenatals. We should March labs as scheduled. [facility]10-30-2024 Telephone encounter Note* Telephone Encounter - Rachael Johnson RN - 02/27/2024 9:41 AM EDT Pt 4 weeks and inquiring if she should have March's lab work completed now or wait until scheduled appt. Pt last labs completed 01/02/24. Pt also would like to know if it is okay to take with iron? Fely: Please advise Rachael Johnson RN [facility]10-08-2024 Hospital Discharge instructions Patient Education [...] condition. Follow these instructions at home: Take nrwn-zbu-expdjlq and prescription medicines only as told by [...] and water are not available, use hand registered safety engineer. Avoid contact with people who have cold [...] it is easier to cough up. Take duzt-rqk-xgaiggk and prescription medicines only as told by [...] provider. Document Revised: 07/27/2022 Document Reviewed: 08/17/2021 [employer] Patient Education 2023 [employer]ty. Follow Up Care 02/04/2024 08:47:42 With:PRAVEEN RESENDEZ FAAFP, CHRIS Perez, PED Address: [address] [place] [address], [facility] [place] [id number]- When:Within 3 Month(s) [facility] 10-08-2024 NotePatient Education Pulmonary Medicine [...] Follow these instructions at home: ? Take sksf-lmo-jwcypar and prescription medicines only as told by [...] and water are not available, use hand registered safety engineer. ? Avoid contact with people who have [...] is easier to cough up. ? Take ntek-ljm-viofelp and (more content not included)...[facility]10-05-2024 Hospital Discharge instructions Follow Up Care 02/02/2024 11:19:56 With:Anni Bernstein MD, [facility], [facility] Address: [address] [place] [phone] When: only if needed [facility] 09-09-2024 Miscellaneous Notes* Telephone Encounter - Valeri eYung RN - 01/07/2024 8:29 AM EDT No [...] FE results. Thank you documented in this encounterUniversity Hospitals Geneva Medical Center09-09-2024 Telephone encounter Note * Telephone Encounter - Valeri Yeung RN - 01/07/2024 8:29 AM EDT No need for IV iron per CC'd chart from Dr. Calix. Attempt to call pt to notify. Left detailed message on, along with call back number on voicemail. Valeri Yeung RN [facility]09-04-2024 Telephone encounter Note* Telephone Encounter - Marleen Mcdonald - 01/02/2024 2:[address] Luna is requesting Triage to call Sanna with her FE results. Thank you [facility]09-04-2024 Instructions* Patient Instructions* Nathaly Florence - 01/02/2024 2:08 PM EDT Triage to call iron results Continue Lovenox - patient prefers 40 mg (rather than rec 80mg) Encouraged her to reconsider Take B12 supplement in the form of a sublingual tablet RTC in 3 months Labs same day Vitamin D, TSH, Calcium with CMP documented in this encounterUniversity Hospitals Geneva Medical Center09-04-2024 Nurse Note* Serina Horton MA [...] MRI but was negative. Serina Dawson MA [facility]09-04-2024 Nurse Note* Serina Dawson MA [...] negative. Serina Dawson MA documented in this encounterUniversity Hospitals Geneva Medical Center09-04-2024 History of Present illness Narrative* Kristofer Calix MD - 01/02/2024 1:45 PM EDT Images from the original note were not included. NAME: Sanan Rendon CLINIC NO.: [id number] DATE OF SERVICE: January 02, 2024 ([place]) [...] later in 2018. These were found in [place], [place]. I don't have access to these [...] a target-like rash shortly before presenting to [facility] in 2016 with headaches and was diagnosed [...] Monge soon. When she hada stroke in [place], she had symptoms up to a month before: uncontrollable headache, BP was elevated, knee stiffness, and blurry vision. Right facial drooping and difficulty speaking [facility] She continues to take vitamins. Updated [...] stayed [place]ox H[place] 13.1 [place] [facility] [place] [...] and at age 69. Both lived in [facility] but she was adopted. She was not able to see ID in October and will be seeing Dr. Baugh next week. Also will have her see Dr. Hamlin for her clotting disorder and make any other recommendations to optimize her treatment. Updated Visit, October 08, 2020: Telephone only Received call from pt stating she was seen in [facility] for numbness in her chest, throat, and extremities, and sob which has been worsening over the last week. We arranged a telephone visit for her toreview questions with me. Sanna Rendon is a 34 year old female seen for Hypercoagulable state and recent concerns and symptoms that required her to be seen at [facility] She went to the ER with Gradual worsening of breathing after progressive tingling of fingers and legs. She currently remains very fatigued even though she is sleeping well. Now recalls that before her stroke she remembers having a bull's eye rash and was seen with severe headaches in [facility] was found to have a stroke [...] root canal and was sent [place] [facility] [place] [...] history goes back to January [address] [facility] where she had persisting headaches and slurred speech followed by lower extremity weakness. This took a few months to resolve and she is back to her normal state of being but some point in time during her her next she was seen by Dr. Humera Hyde in [place] as well and was found to have [...] which included preparing to see the patient, bkcg-dw-whzt patient care, completing clinical documentation, performing a medically appropriate examination, counseling and educating the patient/family/caregiver, ordering medications, tests, or p rocedures, independently interpreting results (not separately reported), communicating results to the patient/family/caregiver, and care coordination (not separately reported). Kristofer Calix MD, CPE Hematology and Oncology Services Provided at: [place], [place] Scribe Attestation: This note was scribed [...] under my direction. CC: MD Wilton Day, [address] [place] [address] Humaira Gaviria MD [address] [place] [id number] MD Cosmo Kingston MD Michael Blank, MD documented in this encounterUniversity Hospitals Geneva Medical Center08-19-2024 Telephone encounter Note * Telephone Encounter - Rachael Johnson RN - 12/17/2023 12:57 PM EDT Pt updated and will follow up with PCP. Denies further questions, needs or concerns at this time for our provider. Rachael Johnson RN [facility]08-19-2024 Miscellaneous Notes* Telephone Encounter - [...] to IV Iron 11/29/23? documented in this encounterUniversity Hospitals Geneva Medical Center08-19-2024 Telephone encounter Note * Telephone Encounter - Kristofer Calix MD - 12/17/2023 12:52 PM EDT No - sounds like she has some infectious process going on - would rec PCP. [facility]08-19-2024 Telephone encounter Note* Telephone Encounter [...] possible delayed reaction to IV Iron 11/29/23? [facility]08-01-2024 History of Present illness Narrative* Becki Gutierrez RN - 11/29/2023 2:01 PM EDT Y Y documented in this encounterUniversity Hospitals Geneva Medical Center08-01-2024 Telephone encounter Note * Telephone Encounter - Rachael Johnson RN - 11/29/2023 12:45 PM EDT MARSHA Connell, treatment aware of changes. [facility]08-01-2024 Miscellaneous Notes* Telephone Encounter - [...] a different iron formulation. documented in this encounterUniversity Hospitals Geneva Medical Center08-01-2024 Telephone encounter Note * Telephone Encounter - Rachael Johnson RN - 11/29/2023 12:41 PM EDT Spoke with pt. She will obtain Pepcid OTC from our retail pharmacy on arrival to take (1) 20 mg tablet. She is aware and agreeable to IV steroid for infusion as well. Rachael Johnson RN [facility]08-01-2024 Telephone encounter Note* Telephone Encounter - Raissa Aly RPh - 11/29/2023 12:40 PM EDT A one time dose of dexamethasone is safe when . I added 8mg to the plan for your review. Please adjust dose if necessary. Thanks, Raissa Aly RPh [facility] Work Phone: [phone] Telephone encounter Note* Telephone Encounter - Raissa Aly RPh - 11/29/2023 12:34 PM EDT Famotidine is safe when . Do we want to administer the venofer slower? What rate? Thanks, Raissa Aly [facility]08-01-2024 Telephone encounter Note* Telephone Encounter - Rachael Johnson RN - 11/29/2023 11:56 AM EDT Called and discussed with pt. She is and cannot take Benadryl. She is reluctant to take Pepcid. Attempted to call retail, infusion pharmacy and [facility], no answer, to ask safety of pepcid in . Pharm/Fely: please advise Rachael Johnson RN [facility]08-01-2024 Telephone encounter Note* Telephone Encounter [...] have to choose a different iron formulation. [facility]07-18-2024 History of Present illness Narrative* Alison Linares RN - 11/15/2023 1:42 PM EDT Pt reports having nausea and lightheadedness this morning. She has seen her pcp regarding these symptoms and is being worked up to figure out the cause. documented in this encounterUniversity Hospitals Geneva Medical Center07-18-2024 Telephone encounter Note * Telephone Encounter - Evelyn Sanabria - 11/15/2023 9:19 AM EDT 1st report of treatment-Non oncology regimen (Venofer) Patient holds Medicaid coverage and there isno available FA at this time. [facility]07-18-2024 Miscellaneous Notes* Telephone Encounter - Domo Cat Evelyn Radha - 11/15/2023 9:19 AM EDT 1st report of treatment-Non oncology regimen (Venofer) Patient holds Medicaid coverage and there isno available FA at this time. documented in this encounterUniversity Hospitals Geneva Medical Center07-12-2024 Hospital Discharge instructions Patient Education [...] your hypoglycemia. Where to find more information [place] [employer]: www.diabetes.org National [place] of Diabetes and Digestive and Kidney Diseases: [...] provider. Document Revised: 03/17/2021 Document Reviewed: 03/17/2021 [employer] Patient Education 2022 [employer]ty. 11/09/2023 15:56:06 Prediabetes Prediabetes Prediabetes is when [...] hard liquor (44 mL). General instructions Take dtds-ihm-vcocvix and prescription medicines only as told by [...] is important. Where to find more information [place] [employer]: www.diabetes.org Academy of Nutrition and Dietetics: www.eatright.org [place] [employer]: www.heart.org Contact a health care [...] provider. Document Revised: 07/15/2020 Document Reviewed: 07/15/2020 [employer] Patient Education 2022 Bgifty. 11/09/2023 15:56:02 Palpitations Palpitations Palpitations are feelings [...] ask your health careprovider. General instructions Take sldd-fyv-kpqsibq and prescription medicines only as told by [...] provider. Document Revised: 09/07/2021 Document Reviewed: 09/07/2021 [employer] Patient Education 2022 [employer]ty. 11/09/2023 15:55:58 Fatigue Fatigue If you have [...] Follow these instructions at home: Medicines Take iyhz-wvj-hzhdddy and prescription medicines only as told by [...] the National Suicide Prevention Lifeline at or 940. This is open 24 hours a day. Text the Crisis Text Line at 991838. Summary If you have fatigue, you feel [...] Document Reviewed: 02/06/2022 Elsevier Patient Education 2022 [employer] Follow Up Care 11/08/2023 11:31:43 With:PRAVEEN RESENDEZ FAAFP, Penelope Tony, CHRIS, PED Address: [place], [facility] [place] [address]- When: Unknown [facility] 07-12-2024 NotePatient Education Emergency Medicine [...] health care provider. General instructions ? Take wazi-emc-knaaath and prescription medicines only as told by [...] provider. Document Revised: 09/07/2021 Document Reviewed: 09/07/2021 [employer]tervention Patient Education ? 2022 Bgifty. Endocrinology Preventing Hypoglycemia Hypoglycemia occurs when the [...] hypoglycemia may not (more content not included)...[facility]07-12-2024 History of Present illness Narrative* Tamiko Krueger LSW - 11/09/2023 9:27 AM EDT Patient appears on the [facility] First Time Treatment List for a non-oncology treatment. No psychosocial assessment is indicated. TIM Huerta-Jaylan documented in this encounterUniversity [facility]als [facility]07-09-[facility]24 Telephone encounter Note * Telephone [...] dizziness, etc. Appointments verified. Rachael Johnson RN [facility]07-09-[facility]24 Miscellaneous Notes* Telephone Encounter - [...] MD Sent: 11/05/2023 11:33 AM EDT To: Rust Triage Pool; Rust Clerical Pool Perry Isidro - looks like you need Iron again. Dr. Middleton Cancel her virtual set for 11/05 and 11/19 - infuse 3 doses weekly iron and then see her in 8 weeks inperson - labs same day. Thanks! documented in this encounterUniversity Hospitals Geneva Medical Center07-08-2024 Telephone encounter Note * Telephone [...] get you feeling better. Best, Dr. Middleton [facility]07-08-2024 Telephone encounter Note* Telephone Encounter [...] is on a blood thinner. Roberta Haskins [facility]07-08-2024 Telephone encounter Note* Telephone Encounter - Roberta Haskins - 11/05/2023 12:47 PM EDT Appointment tomorrow cancelled. Andres tried calling her this morning and was unable to get a hold ofher. Will keep trying patient to schedule for Iron. Roberta Haskins [facility]07-08-2024 Telephone encounter Note* Telephone Encounter - Roberta Haskins - 11/05/2023 12:47 PM EDT ----- Message from Rachael Johnson RN sent at 11/05/2023 11:53 AM EDT ----- ----- Message ----- From: Kristofer Calix MD Sent: 11/05/2023 11:33 AM EDT To: Rust Triage Pool; Rust Clerical Pool Perry Isidro - looks like you need Iron again. Dr. Middleton Cancel her virtual set for 11/05 and 11/19 - infuse 3 doses weekly iron and then see her in 8 weeks inperson - labs same day. Thanks! [facility]06-25-[facility] Hospital Discharge instructions Patient Education [...] specializes in ear, nose, and throat disorders (ice cutter, or ENT) for more tests and treatment. [...] (rhinoplasty). Follow these instructions at home: Take jlav-avv-laiotuy and prescription medicines only as told by [...] specializes in ear, nose, and throat disorders (ice cutter, or ENT) for more tests and treatment. This information is not intended to replace advice given to you by your health care provider. Make sure you discuss any questions you have with your health care provider. Document Revised: 12/12/2021 Document Reviewed: 12/12/2021 Syntervention Patient Education 2022 Bgifty. 10/23/2023 17:12:52 Nasal Polyps Nasal Polyps Nasal [...] instructions at home: Medicines Take or use gmsx-vuz-yeexrfc and prescription medicines only as told by [...] provider. Document Revised: 04/05/2022 Document Reviewed: 04/05/2022 Syntervention Patient Education 2022 Bgifty. 10/23/2023 17:12:52 Nasal Polypectomy Nasal Polypectomy Nasal [...] including vitamins, herbs, eye drops, creams, and mzge-apg-hyviryn medicines. Any problems you or family members [...] provider tells you to take them. Taking obmo-ptd-xgvumkp medicines, vitamins, herbs, and supplements. General instructions [...] provider. Document Revised: 04/05/2022 Document Reviewed: 04/05/2022 [employer]tervention Patient Education 2022 Bgifty. 10/23/2023 17:12:46 BMI for Adults BMI for [...] numbers. This can be done either in [place] ([place] or metric measurements. Note that charts and online BMI calculators are available to help you find your BMI quickly and easily without having to do these calculations yourself. To calculate your BMI in [place] ([place] measurements: 1.Measure your weight in pounds [...] Centers for Disease Control and Prevention: www.cdc.gov [place] Heart Association: www.heart.org National Heart, Lung, and Blood [place]: www.nhlbi.nih.gov Summary Body mass index (BMI) is a number that is calculated from a person's weight and height. BMI may help estimate how much of a person's weight is composed of fat. BMI can help identify thosewho may be at higher risk for certain medical problems. BMI can be measured using [place] measurements or metric measurements. BMI charts are used to identify whether you are underweight, normal weight, overweight, or obese. This information is not intended to replace advice given to you by your health care provider. Make sure you discuss any questions you have with your health care provider. Document Revised: 01/07/2020 Document Reviewed: 11/14/2019 [employer]tervention Patient Education 2022 Bgifty. Follow Up Care 10/23/2023 08:49:41 With:Lourdes Urrutia Address: [address] [place] [address], [facility] [place] [address]- When: only if needed [facility] 05-31-2024 Hospital Discharge instructions Patient [...] Follow these instructions at home: Medicines Take ozyv-cja-ynvjuvw and prescription medicines only as told by [...] Watch your condition for any changes. Take sslx-twu-pdegqgf and prescription medicines only as told by [...] provider. Document Revised: 06/04/2020 Document Reviewed: 08/25/2019 Else[employer] Patient Education 2022 Bgifty. Follow Up Care 09/28/2023 18:22:59 With:Penelope CASAS Address: [address], [place] [address]- Business (1) When:Within 3 Day(s) [facility]05-31-2024 Hospital Discharge instructions Patient Education 09/28/2023 18:24:44 [...] numbers. This can be done either in [place] ([place] or metric measurements. Note that charts and online BMI calculators are available to help you find your BMI quickly and easily without having to do these calculations yourself. To calculate your BMI in [place] ([place] measurements: 1.Measure your weight in pounds [...] Centers for Disease Control and Prevention: www.cdc.gov [place] Heart Association: www.heart.org National Heart, Lung, and Blood [place]: www.nhlbi.nih.gov Summary Body mass index (BMI) is a number that is calculated from a person's weight and height. BMI may help estimate how much of a person's weight is composed of fat. BMI can help identify thosewho may be at higher risk for certain medical problems. BMI can be measured using [place] measurements or metric measurements. BMI charts are used to identify whether you are underweight, normal weight, overweight, or obese. This information is not intended to replace advice given to you by your health care provider. Make sure you discuss any questions you have with your health care provider. Document Revised: 01/07/2020 Document Reviewed: 11/14/2019 [employer]vention Patient Education 2022 Bgifty. 09/28/2023 18:24:42 Hypertension, Adult, Rxkw-oa-Oksd Hypertension, Adult Hypertension is another name for [...] doctor. Keep all follow-up visits. Medicines Take hlih-xuf-ybyjwqi and prescription medicines only as told by [...] provider. Document Revised: 02/02/2022 Document Reviewed: 02/02/2022 [employer]tervention Patient Education 2022 Bgifty. 09/28/2023 18:24:32 Abdominal Pain, Adult, Vfoi-ir-Otfv Abdominal Pain, Adult Many things can cause belly (abdominal) pain. Most times, belly pain is not dangerous. Many cases of belly pain can be watched and treated at home. Sometimes, though, belly pain is serious. Your doctor will try to find the cause of your belly pain. Follow these instructions at home: Medicines Take dygr-rqd-jbrhpty and prescription medicines only as told by [...] your belly pain for any changes. Take cypo-msk-yxrdrku and prescription medicines only as told by [...] provider. Document Revised: 08/25/2019 Document Reviewed: 08/25/2019 [employer]tervention Patient Education 2022 Bgifty. Follow Up Care 09/28/2023 16:11:11 With:Emergency room Address: When: only if needed Comments:Patient was instructed to contact emergency room for any worsening abdominal pain, concerns, or complications. [facility] 05-31-2024 Evaluation + Plan noteExtracted [...] Open Future Scheduled Tests Laboratory* HgbA1c 08/03/23 [facility]05-30-2024 Telephone encounter Note* Telephone Encounter - Divine Roberta - 09/27/2023 4:38 PM EDT Attempt has been made x2 to reschedule patient. She did not have labs drawn. Roberta Haskins [facility]05-30-[facility] Miscellaneous Notes* Telephone Encounter - JocelynelesterRoberta - 09/27/2023 4:38 PM EDT Attempt has been made x2 to reschedule patient. She did not have labs drawn. Roberta Haskins documented in this encounterUniversity Hospitals [facility] Center05-29-2024 History of Present illness Narrative* Kristofer Calix MD - 09/26/2023 9:11 AM EDT Did not have labs done to prep for this visit - reschedule. Kristofer Calix MD documented in this encounterUniversity Hospitals Geneva [facility] Center04-05-2024 Hospital Discharge instructions Patient Education [...] your health care provider or diet and clinical nutrition manager (dietitian). This may include: ?Eating fewer calories. [...] provider. Document Revised: 06/12/2021 Document Reviewed: 06/12/2021 [employer]tervention Patient Education 2022 Bgifty. Follow Up Care 02/15/2023 10:07:52 With:PRAVEEN RESENDEZ FAAFP, Penelope Tony, CHRIS, PED Address: [address], [place] [address]- When:Within 4 Month(s) [facility] 04-05-2024 Evaluation + Plan note Future Scheduled Tests Laboratory* HgbA1c 08/03/23 Radiology* CT Soft Tissue Neck w/ Contrast 11/12/23 [facility] 02-22-2024 Hospital Discharge instructions Patient [...] or if there is an kennedy for Revegyter. Most glucose meters store a record of [...] mayhave. Where to find more information The [place] Diabetes Association: www.diabetes.org The Association of Diabetes [...] provider. Document Revised: 01/12/2021 Document Reviewed: 01/12/2021 Syntervention Patient Education 2022 Bgifty. 06/21/2023 06:07:34 Preventing Iron Deficiency Anemia, Adult [...] iron. Foods high in vitamin C include: ?[place] fruits, such as tai, oranges, and grapefruits. [...] iron supplement is right for you. Take uylr-qbs-jdecgfa and prescription medicines only as told by your health care provider. Keep all follow-up visits. Where to find more information Learn more about preventing iron deficiency from: National Heart, Lung, and Blood [place]: www.nhlbi.nih.gov [place] Society of Hematology: www.hematology.org Contact a health [...] provider. Document Revised: 05/24/2022 Document Reviewed: 05/24/2022 Syntervention Patient Education 2022 Bgifty. 06/21/2023 06:07:28 BMI for Adults BMI for [...] numbers. This can be done either in [place] (U.S[place] or metric measurements. Note that charts and online BMI calculators are available to help you find your BMI quickly and easily without having to do these calculations yourself. To calculate your BMI in [place] ([place].) measurements: 1.Measure your weight in pounds [...] Centers for Disease Control and Prevention: www.cdc.gov [place] Heart Association: www.heart.org National Heart, Lung, and Blood [place]: www.nhlbi.nih.gov Summary Body mass index (BMI) is a number that is calculated from a person's weight and height. BMI may help estimate how much of a person's weight is composed of fat. BMI can help identify thosewho may be at higher risk for certain medical problems. BMI can be measured using [place] measurements or metric measurements. BMI charts are used to identify whether you are underweight, normal weight, overweight, or obese. This information is not intended to replace advice given to you by your health care provider. Make sure you discuss any questions you have with your health care provider. Document Revised: 01/07/2020 Document Reviewed: 11/14/2019 Syntervention Patient Education 2022 Bgifty. Follow Up Care 06/19/2023 13:39:56 With:PRAVEEN RESENDEZ FAAFP, Penelope Tony, CHRIS, PED Address: [address] [place] [id number]- When: Unknown [facility] 02-20-2024 Miscellaneous Notes* Telephone Encounter - Rachael Johnson RN - 06/19/2023 1:05 PM EST Pt called back and aware of Fely's message. She is agreeable to POC and denies further needs at thistime. She will call PCP to follow up on TSH Rachael Johnson RN * Telephone Encounter - Rachael Johnson RN - 06/19/2023 12:26 PM EST [employer] message sent Rachael Johnson RN * Telephone [...] lab results Roberta Haskins documented in this encounterUniversity Hospitals [facility] Center02-16-2024 Instructions* Patient Instructions* Nathaly Carney [...] TSH, Calcium with CMP documented in this encounterUniversity Hospitals [facility] Center02-16-2024 Nurse Note* Serina Horton MA [...] exercise. Serina Dawson MA documented in this encounterUniversity Hospitals Geneva [facility] Center02-16-2024 History of Present illness Narrative* Kristofer Calix MD - 06/15/2023 2:00 PM EST Images from the original note were not included. NAME: Sanna Rendon CLINIC NO.: [id number] DATE OF SERVICE: June 15, 2023 (Levon) [...] later in 2018. These were found in [place], [place]. I don't have access to these [...] a target-like rash shortly before presenting to [facility] in 2016 with headaches and was diagnosed [...] Monge soon. When she hada stoke in [place], she had symptoms up to a month [...] [place] 13.[place] [facility] [place] [...] and at age 69. Both lived in [facility] but she was adopted. She was not able to see ID in October and will be seeing Dr. Baugh next week. Also will have her see Dr. Hamlin for her clotting disorder and make any other recommendations to optimize her treatment. Updated Visit, October 08, 2020: Telephone only Received call from pt stating she was seen in [facility] [place] for numbness in her chest, throat, and extremities, and sob which has been worsening over the last week. We arranged a telephone visit for her franci questions with me. Sanna Rendon is a 34 year old female seen for Hypercoagulable state and recent concerns and symptoms that required her to be seen at [facility] [place]. She went to the ER with Gradual worsening of breathing after progressive tingling of fingers and legs. She currently remains very fatigued even though she is sleeping well. Now recalls that before her stroke she remembers having a bull's eye rash and was seen with severe headaches in [facility] was found to have a stroke [...] root canal and was sent to [facility] [place] for [...] history goes back to January [address] [facility] where she had persisting headaches and slurred speech followed by lower extremity weakness. This took a few months to resolve and she is back to her normal state of being but some point in time during her her next she was seen by Dr. Humera Hyde in [place] as well and was found to have [...] which included preparing to see the patient, pkmj-nk-mryd patient care, completing clinical documentation, performing a medically appropriate examination, counseling and educating the patient/family/caregiver, ordering medications, tests, or p rocedures, independently interpreting results (not separately reported), communicating results to the patient/family/caregiver, and care coordination (not separately reported). Kristofer Calix MD, CPE Hematology and Oncology Services Provided at: [place], [place] Scribe Attestation: This note was scribed [...] under my direction. CC: MD Wilton Day, [address] [place] [address] Humaira Gaviria MD [address] [place] [id number] MD Cosmo Kingston MD Michael Blank, MD documented in this encounterUniversity Hospitals Geneva Medical Center02-12-2024 Miscellaneous Notes* Telephone Encounter - Ebony Redding Ma - 06/11/2023 10:43 AM EST Labs for appointment on 06/15. Ebony Redding Ma documented in this encounterUniversity Hospitals Geneva Medical Center02-12-2024 Miscellaneous Notes* Telephone Encounter - [...] Nicol Salgado * [facility]/06/2023 8:37 AM EST Records [...] since she was last seen by him. [facility] [address] [facility] [place] Bhavna, Please fax records Andres, Please follow up on this appt. Thank you documented in this encounterUniversity Hospitals Geneva Medical Center02-01-2024 History of Present illness Narrative* Kristofer Calix MD - 05/31/2023 4:30 PM EST Images from the original note were not included. NAME: Sanna Rendon CLINIC NO.: [id number] DATE OF SERVICE: May 31, 2023 (Levon) Some elements in this clinic note that are critical to medical decision making have been carefully reviewed and included from a prior clinic note dated: March 19, 2023 (Levon) Additional Clinicians involved in Sanna Rendon's care: Drs. Herrmann, Jorge Monge, Humaira Gaviria, VIRTUAL VISIT PROGRESS NOTE This is a virtual visit using [employer] Zoom Video Visit. It required patient- provider interaction for the medical decision making as documented below. I have communicated my name and active licensure. The patient's identity and physical location wereverified at the time of this visit. Either the patient or their legal community relations representative has been informed of the risks and benefits of -- and alternatives to -- treatment through a remote evaluation andconsents to proceed with the evaluation remotely. CC: hypercoag state. ASSESSMENT: 37 year old woman 25 weeks presents with a prior history of CVA in 2016 and anantiphospholipid antibody that was identified much later in 2018. These were found in [place], [place]. I don't have access to these [...] a target-like rash shortly before presenting to [facility] in 2016 with headaches and was diagnosed [...] stayed [place] 13.1 [place] [facility] [place] [...] and at age 69. Both lived in [facility] but she was adopted. She was not able to see ID in October and will be seeing Dr. Baugh next week. Also will have her see Dr. Hamlin for her clotting disorder and make any other recommendations to optimize her treatment. Updated Visit, October 08, 2020: Telephone only Received call from pt stating she was seen in [facility] [place] for numbness in her chest, throat, and extremities, and sob which has been worsening over the last week. We arranged a telephone visit for her franci questions with me. Sanna Rendon is a 34 year old female seen for Hypercoagulable state and recent concerns and symptoms that required her to be seen at [facility] [place]. She went to the ER with Gradual worsening of breathing after progressive tingling of fingers and legs. She currently remains very fatigued even though she is sleeping well. Now recalls that before her stroke she remembers having a bull's eye rash and was seen with severe headaches in [facility] was found to have a stroke [...] root canal and was sent to [facility] [place] for [...] history goes back to January [address] [facility] where she had persisting headaches and slurred speech followed by lower extremity weakness. This took a few months to resolve and she is back to her normal state of being but some point in time during her her next she was seen by Dr. Humera Hyde in [place] as well and was found to have [...] CPE Hematology and Oncology Services Provided at: [place], [place] CC: MD Wilton Day, [address] [place] [address] Humaira Gaviria MD [address] [place] [id number] MD Cosmo Kingston MD Michael Blank, MD documented in this encounterUniversity Hospitals Geneva Medical Center02-01-2024 Instructions* Patient Instructions* Kristofer Calix [...] TSH, Calcium with CMP documented in this encounterUniversity Hospitals Geneva Medical Center01-26-2024 Hospital Discharge instructions Patient Education [...] your ears completely after. General instructions Take kktt-ofw-iryboyz and prescription medicines only as told by [...] provider. Document Revised: 06/27/2021 Document Reviewed: 06/27/2021 [employer]tervention Patient Education 2022 Bgifty. 05/25/2023 12:02:06 Dyshidrotic Eczema Dyshidrotic Eczema Dyshidrotic [...] care provider who specializes in skin conditions (internet media planner) tohelp diagnose and treat this condition. How [...] locks in moisture. Medicines Take and apply pcnn-pnf-swrhhzp and prescription medicines only as told by [...] provider. Document Revised: 01/24/2021 Document Reviewed: 01/24/2021 [employer]tervention Patient Education 2022 Bgifty. 05/25/2023 12:02:02 Allergies, Adult, Jwgj-ig-Fvvz Allergies, Adult An allergy means that your [...] instructions at home: Medicines Take or apply womd-dim-afkdosn and prescription medicines only as told by [...] to the hospital. Summary Take or apply rhyl-qdb-bcdxjck and prescription medicines only as told by [...] provider. Document Revised: 02/25/2020 Document Reviewed: 02/25/2020 [employer]vention Patient Education 2022 Bgifty. Follow Up Care 05/21/2023 12:21:27 With:PRAVEEN RESENDEZ FAAFP, Penelope Tony, CHRIS, PED Address: [facility] [place]note 2[facility] [address], [place] [address]- When:Within 2 Month(s) [facility] 11-20-2023 History of Present illness Narrative* Kristofer Calix MD - 03/19/2023 4:45 PM EST Images from the original note were not included. NAME: Sanna Rendon CLINIC NO.: [id number] DATE OF SERVICE: March 19, 2023 (Levon) [...] visit. Either the patient or their legal community relations representative has been informed of the risks and benefits of -- and alternatives to -- treatment through a remote evaluation andconsents to proceed with the evaluation remotely. CC: hypercoag state. ASSESSMENT: 37 year old woman 25 weeks presents with a prior history of CVA in 2016 and anantiphospholipid antibody that was identified much later in 2018. These were found in [place], [place]. I don't have access to these [...] a target-like rash shortly before presenting to [facility] in 2016 with headaches and was diagnosed [...] stayed [place]ox H[place] 13.1 [place] [facility] [place]commended [...] and at age 69. Both lived in [facility] but she was adopted. She was not able to see ID in October and will be seeing Dr. Baugh next week. Also will have her see Dr. Hamlin for her clotting disorder and make any other recommendations to optimize her treatment. Updated Visit, October 08, 2020: Telephone only Received call from pt stating she was seen in [facility] [place] for numbness in her chest, throat, and extremities, and sob which has been worsening over the last week. We arranged a telephone visit for her chanw questions with me. Sanna Rendon is a 34 year old female seen for Hypercoagulable state and recent concerns and symptoms that required her to be seen at [facility]. She went to the ER with Gradual worsening of breathing after progressive tingling of fingers and legs. She currently remains very fatigued even though she is sleeping well. Now recalls that before her stroke she remembers having a bull's eye rash and was seen with severe headaches in [facility] was found to have a stroke [...] root canal and was sent to [facility] for [...] history goes back to January [address] [facility] where she had persisting headaches and slurred speech followed by lower extremity weakness. This took a few months to resolve and she is back to her normal state of being but some point in time during her her next she was seen by Dr. Humera Hyed in [place] as well and was found to have [...] CPE Hematology and Oncology Services Provided at: [place], [place] CC: MD Wilton Day, [address] [place] [address] Humaira Gaviria MD [address] [place] [id number] MD Cosmo Kingston MD Michael Blank, MD documented in this encounterUniversity Hospitals Geneva Medical Center11-20-2023 Instructions* Patient Instructions* Kristofer Calix MD - 03/19/2023 4:44 PM EST Continue Lovenox - patient prefers 40 mg (rather than rec 80mg) Take B12 supplement in the form of a sublingual tablet. Take Vitamin D3 5000 international unit(s) daily Check labs in 8 weeks Phone / Virtual call after documented in this encounterUniversity Hospitals Geneva Medical Center10-19-2023 Hospital Discharge instructions Patient Education 02/15/2023 10:13:08 Ear Drops, Adult, Zxrb-gi-Pzbn Ear Drops, Adult Your doctor has found [...] cannot use soap and water, use hand registered safety engineer. 2.Make sure your ears are clean and [...] you cannot use soapand water, use hand registered safety engineer. Follow these instructions at home: Use the [...] provider. Document Revised: 02/11/2020 Document Reviewed: 02/11/2020 [employer] Patient Education 2022 [employer]. 02/15/2023 10:13:05 Otitis Externa, Ozwf-nu-Zgmc Otitis Externa Otitis externa is an infection [...] if you start to feel better. Take uxnf-mkr-czwgzvb and prescription medicines only as told by [...] provider. Document Revised: 06/29/2021 Document Reviewed: 06/29/2021 [employer] Patient Education 2022 Bgifty. Follow Up Care 02/14/2023 12:28:12 With:PRAVEEN RESENDEZ FAAFP, Penelope Tony, CHRIS, PED [facility] [address] [facility] [place] [address]- When:Within 2 Month(s) [facility] 08-25-2023 Hospital Discharge instructions Patient [...] including vitamins, herbs, eye drops, creams, and bltm-llb-remkidt medicines. ?Whether you are or may be [...] provider. Document Revised: 12/28/2021 Document Reviewed: 11/19/2020 [employer] Patient Education 2022 [employer]. 12/22/2022 15:19:23 Fatigue Fatigue If you have [...] Follow these instructions at home: Medicines Take siyr-kxs-aqhcnsn and prescription medicines only as told by [...] the National Suicide Prevention Lifeline at or 283. This is open 24 hours a day. Text the Crisis Text Line at 487129. Summary If you have fatigue, you feel [...] provider. Document Revised: 02/06/2022 Document Reviewed: 02/06/2022 [employer] Patient Education 2022 [employer]ty. Follow Up Care 12/22/2022 10:22:02 With:Lourdes Urrutia Address: [facility] [place][note 2] [address], [facility] [place] [address]- When: only if needed [facility] 08-25-2023 Instructions* Patient Instructions* Kristofer Calix MD - 12/22/2022 10:13 AM EDT Continue Lovenox - patient prefers 40 mg (rather than rec 80mg) Take B12 supplement in the form of a sublingual tablet. Take Vitamin D3 5000 international unit(s) daily Check labs in 8 weeks Phone / Virtual call after documented in this encounterUniversity Hospitals Geneva Medical Center08-25-2023 History of Present illness Narrative* Kristofer Calix MD - 12/22/2022 9:55 AM EDT Images from the original note were not included. Kristofer Calix MD NAME: Sanna Rendon CLINIC NO.: [id number] DATE OF SERVICE: December 22, 2022 (Levon) [...] visit. Either the patient or their legal community relations representative has been informed of the risks and benefits of -- and alternatives to -- treatment through a remote evaluation andconsents to proceed with the evaluation remotely. CC: hypercoag state. ASSESSMENT: 37 year old woman with a prior history of CVA in 2016 and an antiphospholipid antibody that was identified much later in 2018. These were found in [place], [place]. I don't have access to these [...] a target-like rash shortly before presenting to [facility] in 2016 with headaches and was diagnosed [...] stayed [place] H[place] 13.1 [place] [facility] [...] and at age 69. Both lived in [facility] but she was adopted. She was not able to see ID in October and will be seeing Dr. Baugh next week. Also will have her see Dr. Halmin for her clotting disorder and make any other recommendations to optimize her treatment. Updated Visit, October 08, 2020: Telephone only Received call from pt stating she was seen in [facility] [place] for numbness in her chest, throat, and extremities, and sob which has been worsening over the last week. We arranged a telephone visit for her franci questions with me. Sanna Rendon is a 34 year old female seen for Hypercoagulable state and recent concerns and symptoms that required her to be seen at [facility]. She went to the ER with Gradual worsening of breathing after progressive tingling of fingers and legs. She currently remains very fatigued even though she is sleeping well. Now recalls that before her stroke she remembers having a bull's eye rash and was seen with severe headaches in [place], [place] - was found to have a [...] root canal and was sent to [facility] for [...] history goes back to January [address] [facility] where she had persisting headaches and slurred speech followed by lower extremity weakness. This took a few months to resolve and she is back to her normal state of being but some point in time during her her next she was seen by Dr. Humera Hyde in [place] as well and was found to have [...] blood loss (chronic) 03/27/2022 Kidney stones early Missed menses Nausea and vomiting Rectal bleeding [...] CPE Hematology and Oncology Services Provided at: [place], [place] CC: MD Wilton Day, [address] [place] [address] Humaira Gaviria MD [address] [facility] [address] MD Cosmo Kingston MD Michael Blank, MD documented in this encounterUniversity Hospitals Geneva Medical Center08-16-2023 Miscellaneous Notes* Telephone Encounter - [...] later time. Roberta Haskins documented in this encounterUniversity Hospitals Geneva Medical Center06-23-2023 Hospital Discharge instructions Patient Education [...] your health care provider or diet and clinical nutrition manager (dietitian). This may include: ?Eating fewer calories. [...] provider. Document Revised: 06/12/2021 Document Reviewed: 06/12/2021 [employer] Patient Education 2022 Bgifty. 10/20/2022 10:37:18 Preventing Type 2 Diabetes Mellitus [...] with a registered dietitian. This diet and clinical nutrition manager can help you make a healthy eating plan and help you understand portion sizes and food labels. Where to find support Ask your health care provider to recommend a registered dietitian, a certified diabetes care and instructor business education, or a weight loss program. Look for local or online weight loss groups. Join a gym, fitness club, or outdoor activity group, such as a walking club. Where to find more information For help and guidance and to learn more about diabetes and diabetes prevention, visit: [place] Diabetes Association (ADA): www.diabetes.org National [place] of Diabetes and Digestive and Kidney Diseases: [...] provider. Document Revised: 07/11/2021 Document Reviewed: 07/11/2021 [employer] Patient Education 2022 Bgifty. 10/20/2022 10:37:17 Preventing Hypoglycemia Preventing Hypoglycemia Hypoglycemia [...] your hypoglycemia. Where to find more information [place] Diabetes Association: www.diabetes.org National [place] of Diabetes and Digestive and Kidney Diseases: [...] provider. Document Revised: 03/17/2021 Document Reviewed: 03/17/2021 [employer] Patient Education 2022 Bgifty. 10/20/2022 10:37:16 Gestational Diabetes Mellitus, Diagnosis, Hugd-bw-Bnzb Gestational Diabetes Mellitus, Diagnosis Gestational diabetes mellitus [...] follow-up visits. Where to find more information [place] Diabetes Association (ADA): diabetes.org Association of Diabetes Care & Education Specialists (ADCES): diabeteseducator.org Centers for Disease Control and Prevention (CDC): cdc.gov [place] Association: americanpregnancy.org U.S. Department of Agriculture MyPlate: [...] provider. Document Revised: 09/20/2020 Document Reviewed: 09/20/2020 [employer] Patient Education 2022 Bgifty. Follow Up Care 09/19/2022 14:47:09 With:PRAVEEN RESENDEZ FAAFP, CHRIS Perez, PED Address: [place] [address]- When:Within 3 Month(s) [facility] 06-01-2023 History of Present illness Narrative* Kristofer Calix MD - 09/28/2022 5:00 PM EDT Images from the original note were not included. Kristofer Calix MD NAME: Sanna Rendon CLINIC NO.: [id number] DATE OF SERVICE: September 28, 2022 (Levon) [...] visit. Either the patient or their legal community relations representative has been informed of the risks and benefits of -- and alternatives to -- treatment through a remote evaluation andconsents to proceed with the evaluation remotely. CC: hypercoag state. ASSESSMENT: 36 year old woman 25 weeks presents with a prior history of CVA in 2016 and anantiphospholipid antibody that was identified much later in 2018. These were found in [place], [place]. I don't have access to these [...] a target-like rash shortly before presenting to [facility] in 2016 with headaches and was diagnosed [...] stayed [place] Lovenox Hgb 13.1 [place] [facility] [place]commended [...] and at age 69. Both lived in [facility] but she was adopted. She was not able to see ID in October and will be seeing Dr. Baugh next week. Also will have her see Dr. Hamlin for her clotting disorder and make any other recommendations to optimize her treatment. Updated Visit, October 08, 2020: Telephone only Received call from pt stating she was seen in [facility] for numbness in her chest, throat, and extremities, and sob which has been worsening over the last week. We arranged a telephone visit for her toreview questions with me. Sanna Rendon is a 34 year old female seen for Hypercoagulable state and recent concerns and symptoms that required her to be seen at [facility]. She went to the ER with Gradual worsening of breathing after progressive tingling of fingers and legs. She currently remains very fatigued even though she is sleeping well. Now recalls that before her stroke she remembers having a bull's eye rash and was seen with severe headaches in [place], [place] - was found to have a [...] root canal and was sent to [facility] for [...] history goes back to January [address] [facility] where she had persisting headaches and slurred speech followed by lower extremity weakness. This took a few months to resolve and she is back to her normal state of being but some point in time during her her next she was seen by Dr. Humera Hyde in [place] as well and was found to have [...] CPE Hematology and Oncology Services Provided at: [place], [place] CC: MD Wilton Day, [address] [place] [address] Humaira Gaviria MD [address] [place] [address] [place] [address] MD Cosmo Kingston MD Michael Blank, MD documented in this encounterUniversity Hospitals Geneva Medical Center05-24-2023 Miscellaneous Notes* Telephone Encounter - Cheri Acharya Sec - 09/20/2022 7:06 AM EDT Cxed appt * Telephone Encounter - Valeri Yeung RN - 09/19/2022 3:29 PM EDT Patient would like to have labs drawn at [facility] [facility] [place] to get fax number. Lab orders faxed to [phone] Valeri Yeung RN PSS: Can you cancel lab appointment for 09/21/22 here. Thanks. Valeri Yeung RN documented in this encounterUniversity Hospitals Geneva Medical Center04-04-2023 Instructions* Patient Instructions* Kristofer Calix MD - 08/01/2022 10:56 AM EDT Continue Lovenox - patient prefers 40 mg (rather than rec 80mg) 8 weeks - labs Phone / Virtual call after documented in this encounterUniversity Hospitals Geneva Medical Center03-30-2023 History of Present illness Narrative* Kristofer Calix MD - 07/27/2022 1:18 PM EDT NAME: Sanna Rendon CLINIC NO.: [id number] DATE OF SERVICE: July 27, 2022 (Levon) [...] later in 2018. These were found in [place], [place]. I don't have access to these [...] a target-like rash shortly before presenting to [facility] in 2016 with headaches and was diagnosed [...] and at age 69. Both lived in [facility] but she was adopted. She was not able to see ID in October and will be seeing Dr. Baugh next week. Also will have her see Dr. Hamlin for her clotting disorder and make any other recommendations to optimize her treatment. Updated Visit, October 08, 2020: Telephone only Received call from pt stating she was seen in [facility] for numbness in her chest, throat, and extremities, and sob which has been worsening over the last week. We arranged a telephone visit for her domingoeview questions with me. Sanna Rendon is a 34 year old female seen for Hypercoagulable state and recent concerns and symptoms that required her to be seen at [facility]. She went to the ER with Gradual worsening of breathing after progressive tingling of fingers and legs. She currently remains very fatigued even though she is sleeping well. Now recalls that before her stroke she remembers having a bull's eye rash and was seen with severe headaches in [place], [place] - was found to have a [...] root canal and was sent to [facility] [place] [...] history goes back to January [address] [facility] where she had persisting headaches and slurred speech followed by lower extremity weakness. This took a few months to resolve and she is back to her normal state of being but some point in time during her her next she was seen by Dr. Humera Hyde in [place] as well and was found to have [...] which included preparing to see the patient, awwg-qn-pybe patient care, completing clinical documentation, obtaining and/or reviewing separately obtained history, performing a medically appropriate examination, counseling and educating the pat ient/family/caregiver, ordering medications, tests, or procedures, independently interpreting results (not separately reported), and care coordination (not separately reported). Kristofer Calix MD, CPE Hematology and Oncology Services Provided at: [place], [place] CC: MD Wilton Day, [address] [place] [address] Humaira Gaviria MD [address] [facility] [address] MD Cosmo Kingston MD Michael Blank, MD documented in this encounterUniversity Hospitals Geneva Medical Center12-07-2022 History of Present illness Narrative* [...] to standard infusion rate. documented in this encounterUniversity Hospitals Geneva Medical Center12-06-2022 Miscellaneous Notes* Telephone Encounter - [...] appt. All questions answered. Pt transferred to net front end developer at her request so she can reschedule dates of IV iron d/t otherappts. FELY: Pt would like to have Venofer ordered and not get Monoferric even if approved. Please place orders if agreeable. Meme Gonzalez RN documented in this encounterUniversity Hospitals Geneva Medical Center12-01-2022 Miscellaneous Notes* Telephone Encounter - [...] were not included. Kristofer Calix MD P Rust Triage Pool; P Rust Clerical Pool She needs iron MUNIRA - if monoferric isn't approved, lets get her in weekly for Venna for. * Telephone Encounter - Roberta Haskins - 03/27/2022 2:57 PM EST 2. Consider IV iron a. Triage nurse to please call iron results when available this week documented in this encounterUniversity Hospitals Geneva Medical Center11-28-2022 Instructions* Patient Instructions* Kristofer Calix MD - 03/27/2022 2:51 PM EST Continue Lovenox - patient prefers 40 mg (rather than rec 80mg) Consider IV iron Triage nurse to please call iron results when available this week Will recheck antiphospholipid antibodies as ordered and every 6 months. RTC in 8 weeks - labs same day. documented in this encounterUniversity Hospitals Geneva Medical Center11-28-2022 History of Present illness Narrative* Kristofer Calix MD - 03/27/2022 2:15 PM EST Images from the original note were not included. NAME: Sanna Rendon CLINIC NO.: [id number] DATE OF SERVICE: March 27, 2022 (radhaelaina) [...] later in 2018. These were found in [place], [place]. I don't have access to these [...] a target-like rash shortly before presenting to [facility] in 2016 with headaches and was diagnosed [...] and at age 69. Both lived in [facility] but she was adopted. She was not able to see ID in October and will be seeing Dr. Baugh next week. Also will have her see Dr. Hamlin for her clotting disorder and make any other recommendations to optimize her treatment. Updated Visit, October 08, 2020: Telephone only Received call from pt stating she was seen in [facility] for numbness in her chest, throat, and extremities, and sob which has been worsening over the last week. We arranged a telephone visit for her chanw questions with me. Sanna Rendon is a 34 year old female seen for Hypercoagulable state and recent concerns and symptoms that required her to be seen at [facility]. She went to the ER with Gradual worsening of breathing after progressive tingling of fingers and legs. She currently remains very fatigued even though she is sleeping well. Now recalls that before her stroke she remembers having a bull's eye rash and was seen with severe headaches in [place], [place] - was found to have a [...] root canal and was sent to [facility] for [...] history goes back to January [address] [facility] where she had persisting headaches and slurred speech followed by lower extremity weakness. This took a few months to resolve and she is back to her normal state of being but some point in time during her her next she was seen by Dr. Humera Hyde in [place] as well and was found to have [...] which included preparing to see the patient, avnx-po-gjaj patient care, completing clinical documentation, obtaining and/or reviewing separately obtained history, performing a medically appropriate examination, counseling and educating the pat ient/family/caregiver, ordering medications, tests, or procedures, independently interpreting results (not separately reported), and care coordination (not separately reported). Kristofer Calix MD, CPE Hematology and Oncology Services Provided at: [place], [place] CC: MD Wilton Day, [address] [place] [address] Humaira Gaviria MD [address] [place] [id number] MD Cosmo Kingston MD Michael Blank, MD documented in this encounterUniversity Hospitals Geneva Medical Center10-03-2022 Instructions* Patient Instructions* Kristofer Calix MD - 01/30/2022 12:[address] Hamlin's expertise and will prescribe Lovenox - patient prefers 40 mg (rather than rec 80mg) Will recheck antiphospholipid antibodies as ordered and every 6 months. RTC in 8 weeks - labs same day. documented in this encounterUniversity Hospitals Geneva Medical Center10-03-2022 History of Present illness Narrative* Kristofer Calix MD - 01/30/2022 11:59 AM EDT Images from the original note were not included. NAME: Sanna Rendon CLINIC NO.: [id number] DATE OF SERVICE: January 30, 2022 Some [...] later in 2018. These were found in [place], [place]. I don't have access to these [...] a target-like rash shortly before presenting to [facility] in 2016 with headaches and was diagnosed [...] and at age 69. Both lived in [facility] but she was adopted. She was not able to see ID in October and will be seeing Dr. Baugh next week. Also will have her see Dr. Hamlin for her clotting disorder and make any other recommendations to optimize her treatment. Updated Visit, October 08, 2020: Telephone only Received call from pt stating she was seen in [facility] for numbness in her chest, throat, and extremities, and sob which has been worsening over the last week. We arranged a telephone visit for her chanw questions with me. Sanna Rendon is a 34 year old female seen for Hypercoagulable state and recent concerns and symptoms that required her to be seen at [facility]. She went to the ER with Gradual worsening of breathing after progressive tingling of fingers and legs. She currently remains very fatigued even though she is sleeping well. Now recalls that before her stroke she remembers having a bull's eye rash and was seen with severe headaches in [facility] was found to have a stroke [...] root canal and was sent to [facility] [place] [...] history goes back to January [address] [facility] where she had persisting headaches and slurred speech followed by lower extremity weakness. This took a few months to resolve and she is back to her normal state of being but some point in time during her her next she was seen by Dr. Humera Hyde in [place] as well and was found to have [...] which included preparing to see the patient, mmqf-de-gtdm patient care, completing clinical documentation, obtaining and/or reviewing separately obtained history, performing a medically appropriate examination, counseling and educating the pat ient/family/caregiver, and ordering medications, tests, or procedures. Kristofer Calix MD, [place], [place] CC: MD Chalino Dayy Jeanine Herrmann, [address] [place] [address] Humaira Gaviria MD [address] [place] [id number] MD Cosmo Kingston MD Michael Blank, MD documented in this encounterUniversity Hospitals Geneva Medical Center10-03-2022 Nurse Note* Serina Dawson MA - 01/30/2022 11:55 AM EDT Patient states she may be diagnosed with gestational diabetes, she was from 215 to 52 a couple hours later after eating wheat cereal. She sees OB tomorrow. Serina Dawson MA documented in this encounterUniversity Hospitals Geneva Medical Center09-02-2022 Miscellaneous Notes* Telephone Encounter - Tonja Pope RN - 12/30/2021 10:15 AM EDT Call received from Sanna requesting refill of Lovenox 40 mg to be sent to [facility] in [place]. FELY: Please review and approve if you agree. Tonja Chery RN documented in this encounterUniversity Hospitals Geneva Medical Center06-13-2022 Miscellaneous Notes* Telephone Encounter - Meme Easton RN - 10/10/2021 12:15 PM EDT Received call from pt requesting refill of Lovenox 40 mg to be sent to [facility] in [place]. FELY: Pt also states she had one episode of blood in her stool which was dripping blood which concerned her. She is not ready to move to 80 mg of Lovenox at this time. Order pending. Please review and sign if agreeable. Meme Easton RN documented in this encounterUniversity Hospitals Geneva Medical Center05-10-2022 Miscellaneous Notes* Telephone Encounter - [...] agreeable. Meme Easton RN documented in this encounterUniversity Hospitals Geneva Medical Center05-09-2022 Miscellaneous Notes* Telephone Encounter - [...] advise. Meme Easton RN documented in this encounterUniversity Hospitals Geneva Medical Center04-25-2022 Miscellaneous Notes* Telephone Encounter - [...] Thoughts? Meme Easton RN documented in this encounterUniversity Hospitals [facility]04-22-[facility]22 Hospital Discharge instructions Patient Education [...] including vitamins, herbs, eye drops, creams, and hfbi-phc-rvmkbff medicines. ?Whether you are or may be [...] 02/11/2008 Document Revised: 08/05/2019 Document Reviewed: 02/18/2018 [employer] Patient Education 2020 [employer] 08/19/2021 13:02:21 Dysuria Dysuria Dysuria is [...] alcohol may irritate the prostate. Medicines Take fead-wlh-dvtptmo and prescription medicines only as told by [...] 01/12/2005 Document Revised: 03/29/2018 Document Reviewed: 01/31/2018 [employer] Patient Education 2020 [employer]. 08/19/2021 13:02:17 Budget-Friendly Healthy Eating Budget-Friendly Healthy [...] frozen fruits, and frozen vegetables. Avoid buying dcgnn-lx-iab foods, such as pre-cut fruits and vegetables [...] 12/18/2014 Document Revised: 04/17/2018 Document Reviewed: 04/17/2018 [employer] Patient Education 2020 [employer]. 08/19/2021 13:02:15 BMI for Adults BMI for [...] height. This can be done either in [place] or metric measurements. Note that charts are available to help you find your BMI quickly and easily without having to do these calculations yourself. To calculate your BMI in [place] measurements, your health care provider will: [...] medical problems. BMI can be measured using [place] measurements or metric measurements. To interpret your [...] 12/26/2004 Document Revised: 03/29/2018 Document Reviewed: 02/27/2018 [employer] Patient Education 2020 [employer]. 08/19/2021 13:02:11 Paresthesia Paresthesia Paresthesia is an [...] fried or sweet foods. General instructions Take cfpa-kzy-meyfvvz and prescription medicines only as told by [...] 04/06/2003 Document Revised: 05/12/2019 Document Reviewed: 04/25/2018 [employer] Patient Education 2020 [employer]. Follow Up Care 08/19/2021 09:17:52 With:PRAVEEN RESENDEZ FAAFP, Penelope Tony, CHRIS, PED Address: [address], [place] [address]- When:1 to 2 weeks [facility] [place] 04-22-2022 Evaluation + Plan note Future Scheduled Tests Radiology* XR Spine Lumbosacral Minimum 4 Views 08/19/21 [facility]04-07-2022 Miscellaneous Notes* Telephone Encounter - Roberta Haskins - 08/04/2021 3:36 PM EDT Patient is scheduled for 09/[address] Elliott. Roberta Haskins * Telephone Encounter - Roberta Divine - 08/01/2021 1:05 PM EDT Sent Email to Cancer Answer Line to refer patient back to Dr. Cosmo Elliott Dx: Primary hypercoagulable state (HCC) Roberta Divine [facility]* Ebony Redding Ma - 08/01/2021 12:48 PM EDT UA ran as ordered. Ebony Redding Ma [facility] + Plan note Future Appointments Appointment Date:07/25/2024 02:30:00 PM Scheduled [facility] App[facility] Type:CV EKG (FT) Appointment Date:07/25/2024 03:00:00 PM Scheduled Provider: [facility] Appoint[facility] Type:CV Holter/Event (FT) Appointment Date:09/09/2024 08:20:00 AM Scheduled Provider:Penelope CASAS DO, FAAFP Location:[facility] Appointment Type:FM Open Future Scheduled Tests Laboratory* HgbA1c 08/05/24 * HgbA1c 11/04/24 Radiology* CT Soft Tissue Neck w/ Contrast 11/12/23 [facility] 03-28-2020 Evaluation + Plan note Future Appointments Appointment Date:07/25/2024 02:30:00 PM Scheduled Provider: [facility] Appoint[facility] Type:CV EKG (FT) Appointment Date:07/25/2024 03:00:00 PM Scheduled Provider: [facility] Appoint[facility] Type:CV Holter/Event (FT) Appointment Date:09/09/2024 08:20:00 [...] CT Soft Tissue Neck w/ Contrast 11/12/23 [facility] Evaluation + Plan note Future Appointments Appointment Date:11/08/2021 12:40:00 PM Scheduled Provider:Penelope CASAS DO, FAAFP Location:[facility] Appointment Type:FM Open Future Scheduled Tests Radiology* XR Spine Lumbosacral Minimum 4 Views 08/19/21 [facility] [place] Evaluation + Plan note Future Appointments Appointment Date:11/08/2021 12:40:00 PM Scheduled Provider:Penelope CASAS DO, FAAFP Location:[facility] Appointment Type:FM Open Diagnostic Tests Pending * Urine Culture 08/19/21 Future Scheduled Tests Radiology* XR Spine Lumbosacral Minimum 4 Views [facility]ments Appointment Date:09/21/2022 10:00:00 AM Scheduled Provider:Penelope CASAS DO, FAAFP Location:[facility]: [facility] App[facility]ments Appointment Date:10/20/2022 09:40:00 AM Scheduled Provider:Penelope CASAS DO, FAAFP [facility]ments Appointment Date:01/26/2023 10:40:00 AM Scheduled Provider:Penelope CASAS DO, FAAFP Location:[facility] Appointment Type: Open [facility] Evaluation + Plan note Future Appointments Appointment Date:04/17/2023 02:20:00 PM Scheduled Provider:Penelope CASAS DO, FAAFP Location:[facility] Appointment Type:FM Open Future Scheduled Tests Laboratory* HgbA1c 02/15/23 * Thyroid Stimulating Hormone 02/15/23 * Thyroid Stimulating Hormone 01/11/23 [facility] Evaluation + Plan note Future Appointments Appointment Date:07/24/2023 01:20:00 PM Scheduled Provider:Penelope CASAS DO, FAAFP Location:[facility] Appointment Type:FM Open Future Scheduled Tests Laboratory* HgbA1c 02/15/23 * Thyroid Stimulating Hormone [facility]23 [facility]ments Appointment Date:07/24/2023 01:20:00 PM Scheduled Provider:Penelope CASAS DO, FAAFP Location:[facility] Appointment Type: Open [facility] Evaluation + Plan note Future Appointments Appointment Date:12/03/2023 12:40:00 PM Scheduled Provider:Penelope CASAS DO, FAAFP Location:[facility] Appointment Type:FM Open Future Scheduled Tests Laboratory* HgbA1c 08/03/23 [facility] evaluation + Plan note Future [...] Face Neck w/o contrast 11/09/23 [facility] evaluation + Plan note Future Appointments Appointment Date:01/11/2024 08:15:00 PM Scheduled Provider: [facility] 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 Study 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 () Appointment Date:01/29/2024 01:20:00 PM Scheduled Provider:Penelope CASAS DO, FAAFP Location:[facility] Appointment Type:FM Open Diagnostic Tests Pending * Cortisol 12/06/23 * T3 Free 12/06/23 Future Scheduled Tests Laboratory* HgbA1c 08/03/23 Radiology* CT Soft Tissue Neck w/ Contrast 11/12/23 [facility] evaluation + Plan note Future Appointments Appointment [...] Tissue Neck w/ Contrast 11/12/23 [facility] evaluation + Plan note Future Appointments Appointment Date:05/16/2024 11:40:00 AM Scheduled Provider:Penelope CASAS DO, FAAFP Location:[facility] Appointment Type:FM Open Future Scheduled Tests Laboratory* HgbA1c 05/07/24 * HgbA1c 08/05/24 * HgbA1c 11/04/24 Radiology* CT Soft Tissue Neck w/ Contrast 11/12/23 [facility] evaluation + Plan note Future Appointments Appointment Date:05/16/2024 11:40:00 AM Scheduled Provider:Penelope CASAS DO, FAAFP Location:[facility] Appointment Type:FM Open Diagnostic Tests Pending * HIV Screen 4th Generation wRfx 02/23/24 Future Scheduled Tests Laboratory* HgbA1c 05/07/24 * HgbA1c 08/05/24 * HgbA1c 11/04/24 Radiology* CT Soft Tissue Neck w/ Contrast 11/12/23 [facility] evaluation + Plan note Future Appointments Appointment Date:05/16/2024 11:40:00 AM Scheduled Provider:Penelope CASAS DO, FAAFP Location:[facility] Appointment Type:FM Open Future Scheduled Tests Laboratory* HgbA1c 08/05/24 * HgbA1c 11/04/24 Radiology* CT Soft Tissue Neck w/ Contrast 11/12/23 [facility] evaluation + Plan note Future Appointments Appointment Date:05/16/2024 11:40:00 AM Scheduled Provider:Penelope CASAS DO, FAAFP Location:[facility] Appointment Type:FM Open Diagnostic Tests Pending * Urine Culture 03/01/24 Future Scheduled Tests Laboratory* HgbA1c 08/05/24 * HgbA1c 11/04/24 Radiology* CT Soft Tissue Neck w/ Contrast 11/12/23 [facility] evaluation + Plan note Future Appointments Appointment Date:07/07/2024 02:20:00 PM Scheduled Provider:Penelope CASAS DO, FAAFP Location:[facility] Appointment Type:FM Open Future Scheduled Tests Laboratory* HgbA1c 08/05/24 * HgbA1c 11/04/24 Radiology* CT Soft Tissue Neck w/ Contrast 11/12/23 [facility] evaluation + Plan note Future Appointments Appointment Date:09/09/2024 08:20:00 AM Scheduled Provider:Penelope CASAS DO, FAAFP Location:[facility] Appointment Type:FM Open Future Scheduled Tests Laboratory* HgbA1c 08/05/24 * HgbA1c 11/04/24 Radiology* CT Soft Tissue Neck w/ Contrast 11/12/23 [facility] evaluation note* Diagnosis Infective urethritis- Primary Urethritis, unspecified [facility] Diagnosis Primary hypercoagulable state (HCC) Primary hypercoagulable state CVA, old, speech/language deficit Speech and language deficit, unspecified, 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 Hyposmolality and/or hyponatremia documented in this encounter [facility] note* Diagnosis Primary hypercoagulable state (HCC) Primary hypercoagulable state CVA, old, speech/language deficit Speech and language deficit, unspecified, 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 Hyposmolality and/or hyponatremia documented in this encounter [facility] note* Diagnosis Primary hypercoagulable state (HCC)- Primary Primary hypercoagulable state CVA, old, speech/language deficit Speech and language deficit, unspecified, late effect of cerebrovascular disease Antiphospholipid antibody syndrome (HCC) Primary hypercoagulable state Anemia, unspecified type documented in this encounter [facility] note* Diagnosis Iron deficiency anemia secondary to blood loss (chronic) Iron deficiency anemia of Anemia of mother, complicating , childbirth, or the puerperium, unspecified as to episode of care documented in this encounter [facility] note* 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 Iron deficiency anemia of Anemia of mother, complicating , childbirth, or the puerperium, unspecified as to episode of care documented in this encounter [facility] note* Diagnosis Primary hypercoagulable state (HCC) Primary hypercoagulable state CVA, old, speech/language deficit Speech and language deficit, unspecified, 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 Hyposmolality and/or hyponatremia documented in this encounter [facility] note* 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 Iron deficiency anemia of Anemia of mother, complicating , childbirth, or the puerperium, unspecified as to episode of care documented in this encounter [facility] note* Diagnosis Primary hypercoagulable state (HCC) Primary hypercoagulable state CVA, old, speech/language deficit Speech and language deficit, unspecified, 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 Hyposmolality and/or hyponatremia documented in this encounter [facility] note* Diagnosis Primary hypercoagulable state (HCC)- Primary Primary hypercoagulable state 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, old, speech/language deficit Speech and language deficit, unspecified, late effect of cerebrovascular disease [facility] Primary hypercoagulable state (HCC) Primary hypercoagulable state CVA, old, speech/language deficit Speech and language deficit, unspecified, 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 Hyposmolality and/or hyponatremia [facility] Diagnosis Primary hypercoagulable state (HCC)- Primary Primary hypercoagulable state Iron deficiency anemia of Anemia of mother, complicating , childbirth, or the puerperium, unspecified as to episode of care Iron deficiency anemia secondary to blood loss (chronic) Vitamin D deficiency Unspecified vitamin D deficiency [facility] Diagnosis Primary hypercoagulable state (HCC)- Primary Primary hypercoagulable state Iron deficiency anemia secondary to blood loss (chronic) Vitamin D deficiency Unspecified vitamin D deficiency CVA, old, speech/language deficit Speech and language deficit, unspecified, late effect of cerebrovascular disease Antiphospholipid antibody syndrome (HCC) Primary hypercoagulable state [facility]* Diagnosis Primary hypercoagulable state (HCC)- Primary Primary hypercoagulable state CVA, old, speech/language deficit Speech and language deficit, unspecified, late effect of cerebrovascular disease Hypercalcemia Vitamin D deficiency Unspecified vitamin D deficiency Iron deficiency anemia secondary to blood loss (chronic) Malaise and fatigue Other malaise and fatigue [facility]* Diagnosis Vitamin D deficiency- Primary Unspecified vitamin D deficiency 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) Antiphospholipid antibody syndrome (HCC) Primary hypercoagulable state Malaise and fatigue Other malaise and fatigue [facility] Vitamin D deficiency- Primary Unspecified vitamin D deficiency 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) [facility] 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 [facility]* Diagnosis Iron deficiency anemia of - Primary Anemia of mother, complicating , childbirth, or the puerperium, unspecified as to episode of care Iron deficiency anemia secondary to blood loss (chronic) [facility] Diagnosis Iron deficiency anemia of - Primary Anemia of mother, complicating , childbirth, or the puerperium, unspecified as to episode of care Iron deficiency anemia secondary to blood loss (chronic) [facility] 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 Vitamin D deficiency Unspecified vitamin D deficiency Malaise and fatigue Other malaise and fatigue documented [facility] Diagnosis Primary hypercoagulable state (HCC) Primary hypercoagulable state CVA, old, speech/language deficit Speech and language deficit, unspecified, 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 Hyposmolality and/or hyponatremia documented [facility] Diagnosis Missed menses , unspecified gestational age Encounter for supervision of normal first in first trimester Hypothyroidism (acquired) ([facility]/HCC) Unspecified hypothyroidism Low vitamin D level documented in this encounter [facility]* Diagnosis 14 weeks gestation of Second trimester state, incidental Confirm viability with history of miscarriage, ultrasound Encounter for routine screening for malformation using ultrasonics documented in this encounter [facility] HealthcareEvaluation noteNo assessment information availableTrinity [facility] Work Phone: Evaluation note* Diagnosis Primary hypercoagulable state (HCC)- Primary Primary hypercoagulable state CVA, old, speech/language deficit Speech and language deficit, unspecified, 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) Vitamin D deficiency Unspecified vitamin D deficiency Antiphospholipid antibody syndrome (HCC) Primary hypercoagulable state [facility] Diagnosis Follow-up visit after miscarriage Abnormal TSH History of thyroid disease documented in this encounter [facility]* Diagnosis Vaginal bleeding Other specified noninflammatory disorder of vagina Dizziness Dizziness and giddiness Abnormal TSH Vaginal discharge Leukorrhea, not specified as infective Pelvic pain in female Unspecified symptom associated with female genital organs documented in this encounter [facility]* Diagnosis Irregular menstrual cycle documented in this encounter [facility]* Diagnosis Primary hypercoagulable state (HCC) Primary hypercoagulable state CVA, old, speech/language deficit Speech and language deficit, unspecified, 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 Hyposmolality and/or hyponatremia documented [facility] Diagnosis Antiphospholipid antibody positive- Primary Other and unspecified nonspecific immunological findings Iron deficiency anemia secondary to blood loss (chronic) Malaise and fatigue Other malaise and fatigue Vitamin D deficiency Unspecified vitamin D deficiency documented [facility]* Diagnosis Amenorrhea Absence of menstruation Missed menses , unspecified gestational age Encounter for supervision of normal first in first trimester Thyroid disease ([facility]/HCC) Unspecified disorder of thyroid documented in this encounter [facility]* Diagnosis Gestational diabetes mellitus (GDM), antepartum, gestational diabetes method of control unspecified- Primary documented in this encounter [facility]* Diagnosis Primary hypercoagulable state (HCC) Primary hypercoagulable state CVA, old, speech/language deficit Speech and language deficit, unspecified, 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 Hyposmolality and/or hyponatremia documented in this [facility]* Diagnosis Primary hypercoagulable state (HCC)- Primary Primary hypercoagulable state CVA, old, speech/language deficit Speech and language deficit, unspecified, 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 Hyposmolality and/or hyponatremia Personal history of TIA (transient ischemic attack) Transient ischemic attack (TIA), and cerebral infarction without residual deficits documented [facility]* Diagnosis Second trimester (HHS-HCC) state, incidental 13 weeks gestation of ([facility]) Thyroid disease Unspecified disorder of thyroid Multigravida of advanced maternal age in second trimester ([facility]) Gestational diabetes mellitus (GDM), antepartum, gestational diabetes method of control unspecified([facility]) Elevated glucose tolerance test Impaired glucose tolerance test documented in this encounter [facility]* Diagnosis Gestational diabetes mellitus (GDM), antepartum, gestational diabetes method of control unspecified- Primary documented in this encounter [facility]* Diagnosis Second trimester (HHS-HCC) state, incidental 16 weeks gestation of ([facility]) Screening, , for anatomic survey ([facility]) Encounter for anatomic survey Vaginal discharge Leukorrhea, not specified as infective Sinus headache Headache [facility] Diagnosis Insulin controlled gestational diabetes mellitus (GDM) in second trimester- Primary documented in this encounter [facility]* Diagnosis 19 weeks gestation of (HHS-HCC) Second trimester (HHS-HCC) state, incidental Thyroid disease Unspecified disorder of thyroid Multigravida of advanced maternal age in second trimester (HHS-HCC) Gestational diabetes mellitus (GDM), antepartum, gestational diabetes method of control unspecified(HHS-HCC) [facility] Diagnosis Gestational diabetes mellitus (GDM) in second trimester controlled on oral hypoglycemic drug- Primary documented in this encounter [facility]* Diagnosis Antiphospholipid antibody positive- Primary Other and unspecified nonspecific immunological findings Iron deficiency anemia secondary to blood loss (chronic) Vitamin D deficiency Unspecified vitamin D deficiency Primary hypercoagulable state (HCC) Primary hypercoagulable state [facility] Diagnosis Gestational diabetes mellitus (GDM) in second trimester controlled on oral hypoglycemic drug- Primary documented in this encounter [facility]* Diagnosis Multigravida of advanced maternal age in second trimester- Primary Antiphospholipid syndrome complicating , antepartum Gestational diabetes mellitus (GDM) in second trimester controlled on oral hypoglycemic drug Insulin controlled gestational diabetes mellitus (GDM) in second trimester AMA (advanced maternal age) multigravida 35+, second trimester Hypothyroidism, unspecified type documented in this encounter [facility]* Diagnosis 22 weeks [...] documented in this encounter [facility]* Diagnosis Multigravida of [...] (GDM), antepartum, gestational diabetes method of control unspecified([facility]) Multigravida of advanced maternal age in second trimester ([facility]) H/O loss Lightheaded Dizziness and giddiness Dizziness Dizziness and giddiness documented in [facility] encounter [facility]* Diagnosis Antiphospholipid syndrome- Primary Primary hypercoagulable state [facility] Diagnosis Gestational diabetes mellitus (GDM) in second trimester controlled on oral hypoglycemic drug- Primary Antiphospholipid syndrome Primary hypercoagulable state Other specified hypothyroidism Antiphospholipid syndrome complicating , antepartum [facility] Diagnosis Second trimester (HHS-HCC) state, incidental 25 weeks gestation of ([facility]) Gestational diabetes mellitus (GDM), antepartum, gestational diabetes method of control unspecified([facility]) Anticoagulant long-term use Encounter for long-term (current) use of anticoagulants Antiphospholipid antibody positive Other and unspecified nonspecific immunological findings Antiphospholipid antibody syndrome ([facility]) Primary hypercoagulable state documented in this encounter [facility] HealthcareEvaluation note* Diagnosis 27 weeks gestation of - Primary Multigravida of advanced maternal age in third trimester Gestational diabetes mellitus (GDM) in second trimester controlled on oral hypoglycemic drug Antiphospholipid syndrome complicating , antepartum Antiphospholipid syndrome Primary hypercoagulable state [facility] Diagnosis Third trimester (HHS-HCC) state, incidental 28 weeks gestation of ([facility]) Anemia complicating childbirth ([facility]) Anticoagulant long-term use Encounter for long-term (current) use of anticoagulants Antiphospholipid antibody positive Other and unspecified nonspecific immunological findings Blood pressure elevated without history of HTN Coagulation defect, unspecified ([facility]) [facility] encounter [facility]* [...] of (HHS-HCC) documented [facility] encounter [facility]* Diagnosis Gestational diabetes mellitus (GDM) in second trimester controlled on oral hypoglycemic drug- Primary Antiphospholipid syndrome Primary hypercoagulable state [facility] Narr[facility] No data available for this section [facility] Discharge instructions No data available for this section [facility] SystemInstructionsNot on filedocumented in this encounter [...] be sent through Care Everywhere. * Preeclampsia ([place]) documented in this encounterPro[facility] SystemInstructionsNot on file documented in this encounterProMedica Health SystemInstructionsNot on file documented in this encounterProMedica Health SystemInstructionsNot on file documented in this encounterProMedica Health SystemInstructionsNot on file documented in this encounterProMedica Health SystemInstructions* Attachments The following attachments cannot be sent through Care Everywhere. * Preeclampsia ([place]) documented in this encounterPro[facility]ica Health SystemInstructionsNot on file documented in this encounterProMedica Health SystemInstructionsNot on file documented in this encounterProMedica Health SystemInstructionsNot on file documented in this encounterProMedica Health SystemProgress note No data available for this section [facility] SystemReason for referral (narrative) , pt reported hx of nasal polyps and deviated septum but never had surgery done Referred by: Shirlene YEBOAH, Lourdes Baltazar [facility] Reason for visit Narrative* Consultation (Urgent) - Pending ReviewSpecialtyDiagnoses / ProceduresReferred By ContactReferred To ContactRheumatology Diagnoses 22 weeks gestation of Antiphospholipid syndrome complicating , antepartum Mukul Noyola MD [address] [facility], [address] [place] [id number] Phone: tel: fax: Sam Callahan MD MPH [address] [address] Phone: tel: fax: Referral IDStatusReasonStart DateExpiration DateVisits RequestedVisits [id number] Review Specialty Services Required [facility] Summary Purpose Family History [...] a 30 minute post dose observation. Rate/Dose Bhahmk7604/05/2022 2:44 PM SZJ949.67 mL/pzGywtvazrk11/07/2022 2:25 PM SBO904 mL/hrNew Bag/Syringe/Rsoxnx0104/05/2022 1:52 PM BLZ398 mg166.67 mL/hr Medication OrderMAR ActionAction DateDoseRateSite iron sucrose 300 mg in NaCl 0.9% 250 mL (VENOFER) 300 mg, INTRAVENOUS, at 166.67 mL/hr, Administer over 90 Minutes, ONCE, 1 dose, On Christie 04/20/22 at 1400, Please conduct a 30 minute post dose observation. New Bag/Syringe/Qxqcjn0904/20/2022 2:01 PM KQV884 mg166.67 mL/hr Additional Source Comments INFORMATION SOURCE (unrecogn ized section and content) DATE CREATED AUTHOR 10/22/2017 [facility] DATE CREATED AUTHOR AUTHOR'S ORGANIZ ATION 11/14/2017 [employer] DATE CREATED AUTHOR AUTHOR'S ORGANIZ ATION 06/18/2018 [facility] [place] DATE CREATED AUTHOR AUTHOR'S ORGANIZ ATION 12/30/2021 [facility] DATE CREATED AUTHOR AUTHOR'S ORGANIZ ATION 06/09/2022 DATE CREATED AUTHOR AUTHOR'S ORGANIZ ATION 09/29/2023 [facility] DATE CREATED AUTHOR AUTHOR'S ORGANIZ ATION 12/03/2023 [facility] DATE CREATED AUTHOR AUTHOR'S ORGANIZ ATION 12/09/2023 [facility] DATE CREATED AUTHOR AUTHOR'S ORGANIZ ATION 12/10/2023 [facility] DATE CREATED AUTHOR AUTHOR'S ORGANIZ ATION 01/27/2024 [facility] DATE CREATED AUTHOR AUTHOR'S ORGANIZ ATION 02/24/2024 [facility] DATE CREATED AUTHOR AUTHOR'S ORGANIZ ATION 02/26/2024 [facility] DATE CREATED AUTHOR AUTHOR'S ORGANIZ ATION 02/28/2024 [facility] DATE CREATED AUTHOR AUTHOR'S ORGANIZ ATION 03/02/2024 [facility] DATE CREATED AUTHOR AUTHOR'S ORGANIZ ATION 03/03/2024 [facility] DATE CREATED AUTHOR AUTHOR'S ORGANIZ ATION 05/15/2024 [facility] DATE CREATED AUTHOR AUTHOR'S ORGANIZ ATION 05/17/2024 [facility] DATE CREATED AUTHOR AUTHOR'S ORGANIZ ATION 05/18/2024 [facility] DATE CREATED AUTHOR AUTHOR'S ORGANIZ ATION 05/19/2024 [facility] DATE CREATED AUTHOR AUTHOR'S ORGANIZ ATION 06/11/2024 [facility] DATE CREATED AUTHOR AUTHOR'S ORGANIZ ATION 06/17/2024 [facility] DATE CREATED AUTHOR AUTHOR'S ORGANIZ ATION 07/09/2024 [facility] DATE CREATED AUTHOR AUTHOR'S ORGANIZ ATION 07/12/2024 [facility] DATE CREATED AUTHOR AUTHOR'S ORGANIZ ATION 07/15/2024 [facility] DATE CREATED AUTHOR AUTHOR'S ORGANIZ ATION 08/24/2024 [facility] DATE CREATED AUTHOR AUTHOR'S ORGANIZ ATION 08/26/2024 [facility] DATE CREATED AUTHOR AUTHOR'S ORGANIZ ATION 09/01/2024 [facility] DATE CREATED AUTHOR AUTHOR'S ORGANIZ ATION 09/08/2024 [facility] DATE CREATED AUTHOR AUTHOR'S ORGANIZ ATION 09/11/2024 [facility] DATE CREATED AUTHOR AUTHOR'S ORGANIZ ATION 12/09/2024 [facility] DATE CREATED AUTHOR AUTHOR'S ORGANIZ ATION 01/18/2025 [facility] DATE CREATED AUTHOR AUTHOR'S ORGANIZ ATION 02/07/2025 [facility] DATE CREATED AUTHOR AUTHOR'S ORGANIZ ATION 02/13/2025 [facility] DATE CREATED AUTHOR AUTHOR'S ORGANIZ ATION 03/03/2025 [facility] DATE CREATED AUTHOR AUTHOR'S ORGANIZ ATION 03/11/2025 [facility] DATE CREATED AUTHOR AUTHOR'S ORGANOSEAS ATION 03/12/2025 [facility] Source Comments (unrecognize d section and content) In the event this informatio n is protected by the Federal Confidentiality of Alcohol and Drug Abuse Patient Records regulations: The Federal rules restrict any use of the information to criminally investigate or prosecute any alcohol or drug abuse patient.[facility] CenterIn the event this information is protected by the Federal Confidentiality of Alcohol and Drug Abuse Patient Records regulations: The Federal rules restrict any use of the information to criminally investigate or prosecute any alcohol or drug abuse patient.[facility] CenterIn the event this information is protected by the Federal Confidentiality of Alcohol and Drug Abuse Patient Records regulations: The Federal rules restrict any use of the information to criminally investigate or prosecute any alcohol or drug abuse patient.[facility] CenterIn the event this information is protected by the Federal Confidentiality of Alcohol and Drug Abuse Patient Records regulations: The Federal rules restrict any use of the information to criminally investigate or prosecute any alcohol or drug abuse patient.[facility] CenterIn the event this information is protected by the Federal Confidentiality of Alcohol and Drug Abuse Patient Records regulations: The Federal rules restrict any use of the information to criminally investigate or prosecute any alcohol or drug abuse patient.[facility] CenterIn the event this information is protected by the Federal Confidentiality of Alcohol and Drug Abuse Patient Records regulations: The Federal rules restrict any use of the information to criminally investigate or prosecute any alcohol or drug abuse patient.[facility] CenterIn the event this information is protected by the Federal Confidentiality of Alcohol and Drug Abuse Patient Records regulations: The Federal rules restrict any use of the information to criminally investigate or prosecute any alcohol or drug abuse patient.[facility] CenterIn the event this information is protected by the Federal Confidentiality of Alcohol and Drug Abuse Patient Records regulations: The Federal rules restrict any use of the information to criminally investigate or prosecute any alcohol or drug abuse patient.[facility] CenterIn the event this information is protected by the Federal Confidentiality of Alcohol and Drug Abuse Patient Records regulations: The Federal rules restrict any use of the information to criminally investigate or prosecute any alcohol or drug abuse patient.[facility] CenterIn the event this information is protected by the Federal Confidentiality of Alcohol and Drug Abuse Patient Records regulations: The Federal rules restrict any use of the information to criminally investigate or prosecute any alcohol or drug abuse patient.[facility] CenterIn the event this information is protected by the Federal Confidentiality of Alcohol and Drug Abuse Patient Records regulations: The Federal rules restrict any use of the information to criminally investigate or prosecute any alcohol or drug abuse patient.[facility] CenterIn the event this information is protected by the Federal Confidentiality of Alcohol and Drug Abuse Patient Records regulations: The Federal rules restrict any use of the information to criminally investigate or prosecute any alcohol or drug abuse patient.[facility] CenterIn the event this information is protected by the Federal Confidentiality of Alcohol and Drug Abuse Patient Records regulations: The Federal rules restrict any use of the information to criminally investigate or prosecute any alcohol or drug abuse patient.[facility] CenterIn the event this information is protected by the Federal Confidentiality of Alcohol and Drug Abuse Patient Records regulations: The Federal rules restrict any use of the information to criminally investigate or prosecute any alcohol or drug abuse patient.[facility] CenterIn the event this information is protected by the Federal Confidentiality of Alcohol and Drug Abuse Patient Records regulations: The Federal rules restrict any use of the information to criminally investigate or prosecute any alcohol or drug abuse patient.[facility] CenterIn the event this information is protected by the Federal Confidentiality of Alcohol and Drug Abuse Patient Records regulations: The Federal rules restrict any use of the information to criminally investigate or prosecute any alcohol or drug abuse patient.[facility] CenterIn the event this information is protected by the Federal Confidentiality of Alcohol and Drug Abuse Patient Records regulations: The Federal rules restrict any use of the information to criminally investigate or prosecute any alcohol or drug abuse patient.[facility] CenterIn the event this information is protected by the Federal Confidentiality of Alcohol and Drug Abuse Patient Records regulations: The Federal rules restrict any use of the information to criminally investigate or prosecute any alcohol or drug abuse patient.[facility] CenterIn the event this information is protected by the Federal Confidentiality of Alcohol and Drug Abuse Patient Records regulations: The Federal rules restrict any use of the information to criminally investigate or prosecute any alcohol or drug abuse patient.[facility] CenterIn the event this information is protected by the Federal Confidentiality of Alcohol and Drug Abuse Patient Records regulations: The Federal rules restrict any use of the information to criminally investigate or prosecute any alcohol or drug abuse patient.[facility] CenterIn the event this information is protected by the Federal Confidentiality of Alcohol and Drug Abuse Patient Records regulations: The Federal rules restrict any use of the information to criminally investigate or prosecute any alcohol or drug abuse patient.[facility] CenterIn the event this information is protected by the Federal Confidentiality of Alcohol and Drug Abuse Patient Records regulations: The Federal rules restrict any use of the information to criminally investigate or prosecute any alcohol or drug abuse patient.[facility] CenterIn the event this information is protected by the Federal Confidentiality of Alcohol and Drug Abuse Patient Records regulations: The Federal rules restrict any use of the information to criminally investigate or prosecute any alcohol or drug abuse patient.[facility] CenterIn the event this information is protected by the Federal Confidentiality of Alcohol and Drug Abuse Patient Records regulations: The Federal rules restrict any use of the information to criminally investigate or prosecute any alcohol or drug abuse patient.[facility] CenterIn the event this information is protected by the Federal Confidentiality of Alcohol and Drug Abuse Patient Records regulations: The Federal rules restrict any use of the information to criminally investigate or prosecute any alcohol or drug abuse patient.[facility] CenterIn the event this information is protected by the Federal Confidentiality of Alcohol and Drug Abuse Patient Records regulations: The Federal rules restrict any use of the information to criminally investigate or prosecute any alcohol or drug abuse patient.[facility] CenterIn the event this information is protected by the Federal Confidentiality of Alcohol and Drug Abuse Patient Records regulations: The Federal rules restrict any use of the information to criminally investigate or prosecute any alcohol or drug abuse patient.[facility] CenterIn the event this information is protected by the Federal Confidentiality of Alcohol and Drug Abuse Patient Records regulations: The Federal rules restrict any use of the information to criminally investigate or prosecute any alcohol or drug abuse patient.[facility] CenterIn the event this information is protected by the Federal Confidentiality of Alcohol and Drug Abuse Patient Records regulations: The Federal rules restrict any use of the information to criminally investigate or prosecute any alcohol or drug abuse patient.[facility] CenterIn the event this information is protected by the Federal Confidentiality of Alcohol and Drug Abuse Patient Records regulations: The Federal rules restrict any use of the information to criminally investigate or prosecute any alcohol or drug abuse patient.[facility] CenterIn the event this information is protected by the Federal Confidentiality of Alcohol and Drug Abuse Patient Records regulations: The Federal rules restrict any use of the information to criminally investigate or prosecute any alcohol or drug abuse patient.[facility] CenterIn the event this information is protected by the Federal Confidentiality of Alcohol and Drug Abuse Patient Records regulations: The Federal rules restrict any use of the information to criminally investigate or prosecute any alcohol or drug abuse patient.[facility] CenterIn the event this information is protected by the Federal Confidentiality of Alcohol and Drug Abuse Patient Records regulations: The Federal rules restrict any use of the information to criminally investigate or prosecute any alcohol or drug abuse patient.[facility] CenterIn the event this information is protected by the Federal Confidentiality of Alcohol and Drug Abuse Patient Records regulations: The Federal rules restrict any use of the information to criminally investigate or prosecute any alcohol or drug abuse patient.[facility] CenterIn the event this information is protected by the Federal Confidentiality of Alcohol and Drug Abuse Patient Records regulations: The Federal rules restrict any use of the information to criminally investigate or prosecute any alcohol or drug abuse patient.[facility] CenterIn the event this information is protected by the Federal Confidentiality of Alcohol and Drug Abuse Patient Records regulations: The Federal rules restrict any use of the information to criminally investigate or prosecute any alcohol or drug abuse patient.[facility] CenterIn the event this information is protected by the Federal Confidentiality of Alcohol and Drug Abuse Patient Records regulations: The Federal rules restrict any use of the information to criminally investigate or prosecute any alcohol or drug abuse patient.[facility] CenterIn the event this information is protected by the Federal Confidentiality of Alcohol and Drug Abuse Patient Records regulations: The Federal rules restrict any use of the information to criminally investigate or prosecute any alcohol or drug abuse patient.[facility] CenterIn the event this information is protected by the Federal Confidentiality of Alcohol and Drug Abuse Patient Records regulations: The Federal rules restrict any use of the information to criminally investigate or prosecute any alcohol or drug abuse patient.[facility] CenterIn the event this information is protected by the Federal Confidentiality of Alcohol and Drug Abuse Patient Records regulations: The Federal rules restrict any use of the information to criminally investigate or prosecute any alcohol or drug abuse patient.[facility] CenterIn the event this information is protected by the Federal Confidentiality of Alcohol and Drug Abuse Patient Records regulations: The Federal rules restrict any use of the information to criminally investigate or prosecute any alcohol or drug abuse patient.[facility] CenterIn the event this information is protected by the Federal Confidentiality of Alcohol and Drug Abuse Patient Records regulations: The Federal rules restrict any use of the information to criminally investigate or prosecute any alcohol or drug abuse patient.[facility] CenterIn the event this information is protected by the Federal Confidentiality of Alcohol and Drug Abuse Patient Records regulations: The Federal rules restrict any use of the information to criminally investigate or prosecute any alcohol or drug abuse patient.[facility] CenterIn the event this information is protected by the Federal Confidentiality of Alcohol and Drug Abuse Patient Records regulations: The Federal rules restrict any use of the information to criminally investigate or prosecute any alcohol or drug abuse patient.[facility] CenterIn the event this information is protected by the Federal Confidentiality of Alcohol and Drug Abuse Patient Records regulations: The Federal rules restrict any use of the information to criminally investigate or prosecute any alcohol or drug abuse patient.[facility] CenterIn the event this information is protected by the Federal Confidentiality of Alcohol and Drug Abuse Patient Records regulations: The Federal rules restrict any use of the information to criminally investigate or prosecute any alcohol or drug abuse patient.[facility] CenterIn the event this information is protected by the Federal Confidentiality of Alcohol and Drug Abuse Patient Records regulations: The Federal rules restrict any use of the information to criminally investigate or prosecute any alcohol or drug abuse patient.[facility] CenterIn the event this information is protected by the Federal Confidentiality of Alcohol and Drug Abuse Patient Records regulations: The Federal rules restrict any use of the information to criminally investigate or prosecute any alcohol or drug abuse patient.[facility] CenterIn the event this information is protected by the Federal Confidentiality of Alcohol and Drug Abuse Patient Records regulations: The Federal rules restrict any use of the information to criminally investigate or prosecute any alcohol or drug abuse patient.[facility] CenterIn the event this information is protected by the Federal Confidentiality of Alcohol and Drug Abuse Patient Records regulations: The Federal rules restrict any use of the information to criminally investigate or prosecute any alcohol or drug abuse patient.[facility] CenterIn the event this information is protected by the Federal Confidentiality of Alcohol and Drug Abuse Patient Records regulations: The Federal rules restrict any use of the information to criminally investigate or prosecute any alcohol or drug abuse patient.[facility] CenterIn the event this information is protected by the Federal Confidentiality of Alcohol and Drug Abuse Patient Records regulations: The Federal rules restrict any use of the information to criminally investigate or prosecute any alcohol or drug abuse patient.[facility] CenterIn the event this information is protected by the Federal Confidentiality of Alcohol and Drug Abuse Patient Records regulations: The Federal rules restrict any use of the information to criminally investigate or prosecute any alcohol or drug abuse patient.[facility] CenterIn the event this information is protected by the Federal Confidentiality of Alcohol and Drug Abuse Patient Records regulations: The Federal rules restrict any use of the information to criminally investigate or prosecute any alcohol or drug abuse patient.[facility] CenterIn the event this information is protected by the Federal Confidentiality of Alcohol and Drug Abuse Patient Records regulations: The Federal rules restrict any use of the information to criminally investigate or prosecute any alcohol or drug abuse patient.[facility] Care Teams (unrecognized sec tion and content) Team MemberRelationshipSpecialtyStart DateEnd Date Humaira Gaviria MD [address] [place] [id number] PCP - GeneralInternal Medicine07/05/18 Jonny Wilcox MD [address] [facility] [place] [address] Primary Staff PhysicianCardiology07/16/18Team MemberRelationshipSpecialtyStart DateEnd Date Humaira Gaviria MD [address] [place] [id number] PCP - GeneralInternal Medicine07/05/18 Jonny Wilcox MD [address] [place] [address] Primary Staff PhysicianCardiology07/16/18Team MemberRelationshipSpecialtyStart DateEnd Date Humaira Gaviria MD [address] [place] [id number] PCP - GeneralInternal Medicine07/05/18 Jonny Wilcox MD [address] [place] [address] Primary Staff PhysicianCardiology07/16/18Team MemberRelationshipSpecialtyStart DateEnd Date Humaira Gaviria MD [address] [place] [place] [address] PCP - GeneralInternal Medicine07/05/18 Jonny Wilcox MD [address] [place] [address] Primary Staff PhysicianCardiology07/16/18Team MemberRelationshipSpecialtyStart DateEnd Date Humaira Gaviria MD [address] [place] [facility] [place] [address] PCP - GeneralInternal Medicine07/05/18 Jonny Wilcox MD [address] [place] [address] Primary Staff PhysicianCardiology07/16/18 [place] [address] [place] [address] PhysicianHematology/Oncology09/14/21 Davida Restrepo RN [address] [place] [address] Specialty Care CoordinatorHematology/Oncology09/14/21Team MemberRelationship SpecialtyStart DateEnd Date Penelope Casas [facility] [place] [address] PCP - GeneralFamily Medicine10/04/20Team MemberRelationshipSpecialtyStart DateEnd Date Humaira Gaviria MD [address] [place] [facility] [place] [address] PCP - GeneralInternal Medicine3/8/19 Jonny Wilcox MD [address] [place] [address] Primary Staff PhysicianCardiology07/16/18 [place] [address] [place] [address] PhysicianHematology/Oncology09/14/21 Davida Restrepo, RN [address] [place] [address] Specialty Care CoordinatorHematology/Oncology09/14/21Te MemberRelationship SpecialtyStart DateEnd Date Penelope Casas, [address] [place] [address] PCP - GeneralFamily Elgcbozq13/3/22 Jonny Wilcox MD [address] [place] [address] Primary Staff PhysicianCardiology07/16/18 [place] [address] [place] [address] PhysicianHematology/Oncology09/14/21 Davida Restrepo, RN [address] [place] [address] Specialty Care CoordinatorHematology/Oncology09/14/21Te MemberRelationship SpecialtyStart DateEnd Date Penelope Casas DO [address] [place] [address] PCP - GeneralFamily Waqheaah16/3/22 Jonny Wilcox MD [address] [place] [address] Primary Staff PhysicianCardiology07/16/18 [place] [address] [place] [address] PhysicianHematology/Oncology09/14/21 Davida Restrepo, RN [address] [place] [address] Specialty Care CoordinatorHematology/Oncology09/14/21Te MemberRelationship SpecialtyStart DateEnd Date Penelope Casas, DO [address] [place] [address] PCP - GeneralFamily Gbryfqus14/3/22 Jonny Wilcox MD [address] [place] [address] Primary Staff PhysicianCardiology07/16/18 [place] [address] [place] [address] PhysicianHematology/Oncology09/14/21 Davida Restrepo, RN [address] [place] [address] Specialty Care CoordinatorHematology/Oncology09/14/21Te MemberRelationship SpecialtyStart DateEnd Date Penelope Casas, DO [address] [place] [address] PCP - Generalmily Yppsyuzl97/3/22 Jonny Wilcox MD [address] [place] [address] Primary Staff PhysicianCardiology07/16/18 [place] [address] [place] [address] PhysicianHematology/Oncology09/14/21 Davida Restrepo, RN [address] [place] [address] Specialty Care CoordinatorHematology/Oncology09/14/21Te MemberRelationship SpecialtyStart DateEnd [facility] Penelope Casas, DO [address] [place] [address] PCP - GeneralFamily Pwfbkiob65/3/22 Jonny Wilcox MD [address] [place] [address] Primary Staff PhysicianCardiology07/16/18 [place] [address] [place] [address] PhysicianHematology/Oncology09/14/21 Davida Restrepo, RN [address] [place] [address] Specialty Care CoordinatorHematology/Oncology09/14/21Te MemberRelationship SpecialtyStart DateEnd [facility] Penelope Casas, DO [address] [place] [address] PCP - GeneralFamily Jilhnxlw77/3/22 Jonny Wilcox MD [address] [place] [address] Primary Staff PhysicianCardiology07/16/18 [place] [address] [place] [address] PhysicianHematology/Oncology09/14/21 Davida Restrepo, RN [address] [place] [address] Specialty Care CoordinatorHematology/Oncology09/14/21Te MemberRelationship SpecialtyStart Date[facility] Penelope [facility]as, DO [address] [place] [address] PCP - GeneralFamily Bodopxhb79/3/22 Jonny Wilcox MD [address] [place] [address] Primary Staff PhysicianCardiology07/16/18 [place] [address] [place] [address] PhysicianHematology/Oncology09/14/21 Davida Restrepo, RN [address] [place] [address] Specialty Care CoordinatorHematology/Oncology09/14/21Te MemberRelationship SpecialtyStart DateEnd Date Penelope Casas, [address] [place] [address] PCP - GeneralFamily Aaepedxu21/3/22 Jonny Wilcox MD [address] [place] [address] Primary Staff PhysicianCardiology07/16/18 [place] [address] [place] [address] PhysicianHematology/Oncology09/14/21 Davida Restrepo, MARSHA [address] [place] [address] Specialty Care CoordinatorHematology/Oncology09/14/21Te MemberRelationship SpecialtyStart DateEnd Date Penelope Casas, DO [address] [place] [address] PCP - Generalmily Lwqplbtx15/3/22 Jonny Wilcox MD [address] [place] [address] Primary Staff PhysicianCardiology07/16/18 [place] [address] [place] [address] PhysicianHematology/Oncology09/14/21 Davida Restrepo RN [address] [place], [place] [address] Specialty Care CoordinatorHematology/Oncology09/14/21Team MemberRelationship SpecialtyStart DateEnd Date Penelope Casas DO [address] [place] [address] PCP - Generalmily Nvlltcup66/3/22 Jonny Wilcox MD [address] [place] [address] Primary Staff PhysicianCardiology07/16/18 [place] [address] [place] [address] PhysicianHematology/Oncology09/14/21 Davida Restrepo RN [address] [place] [address] Specialty Care CoordinatorHematology/Oncology09/14/21Te MemberRelationship SpecialtyStart DateEnd Date Penelope Casas DO [address] [place] [address] [facility] - [facility] Jyonagdj16/3/22 Jonny Wilcox MD [address] [place] [address] Primary Staff PhysicianCardiology07/16/18 [place] [address] [place] [address] PhysicianHematology/Oncology09/14/21 Davida Restrepo RN [address] [place] [address] Specialty Care CoordinatorHematology/Oncology09/14/21Team MemberRelationship Specialtyart DateEnd Penelope Casas DO [address] [place] [address] PCP - GeneralFamily Vitxhvzl78/3/22 Jonny Wilcox MD [address] [place] [address] Primary Staff PhysicianCardiology07/16/18 [place] [address] [place] [address] PhysicianHematology/Oncology09/14/21 Davida Restrepo RN [address] [place] [address] Specialty Care CoordinatorHematology/Oncology09/14/21Te MemberRelationship SpecialtyStart DateEnd Date Penelope Casas DO [address] [place] [address] PCP - Generalmily Hvrrxswv67/3/22 Jonny Wilcox MD [address] [place] [address] Primary Staff PhysicianCardiology07/16/18 [place] [address] [place] [address] PhysicianHematology/Oncology09/14/21 Davida Restrepo RN [address] [place] [address] Specialty Care CoordinatorHematology/Oncology09/14/21Team MemberRelationship SpecialtyStart DateEnd Date Penelope Casas DO [address] [facility] [place] [address] PCP - [facility] Qxgixjsw14/3/22 Jonny Wilcox MD [address] [place] [address] Primary Staff PhysicianCardiology07/16/18 [place] [address] [place] [address] PhysicianHematology/Oncology09/14/21 Davida Restrepo, RN [address] [place] [address] Specialty Care CoordinatorHematology/Oncology09/14/21Team MemberRelationship SpecialtyStart DateEnd Date Penelope Casas DO [address] [facility] [place] [address] PCP - [facility] Rcmbgqie46/3/22 Jonny Wilcox MD [address] [place] [address] Primary Staff PhysicianCardiology07/16/18 [place] [address] [place] [address] PhysicianHematology/Oncology09/14/21 Davida Restrepo RN [address] [place], [place] [address] Specialty Care CoordinatorHematology/Oncology09/14/21Team MemberRelationship SpecialtyStart DateEnd Date Penelope Casas DO [address] [facility] [place] [address] PCP - Generalmily Ocmgfdnu23/3/22 Jonny Wilcox MD [address] [place] [address] Primary Staff PhysicianCardiology07/16/18 [place] [address] [place] [address] PhysicianHematology/Oncology09/14/21 Davida Restrepo, RN [address] [place] [address] Specialty Care CoordinatorHematology/Oncology09/14/21Team MemberRelationship SpecialtyStart DateEnd Date Penelope Casas DO [address] [facility] [place] [place] [address] PCP - Generalmily Mhpouxfb09/3/22 Jonny Wilcox MD [address] [place] [address] Primary Staff PhysicianCardiology07/16/18 [place] [address] [place] [address] PhysicianHematology/Oncology09/14/21 Davida Restrepo, RN [address] [place] [address] Specialty Care CoordinatorHematology/Oncology09/14/21Team MemberRelationship SpecialtyStart DateEnd Date Penelope Casas DO [address] [facility] [place] [place] [address] PCP - GeneralFamily Fmwbucfm82/3/22 Jonny Wilcox MD [address] [place] [address] Primary Staff PhysicianCardiology07/16/18 [place] [address] [place] [address] PhysicianHematology/Oncology09/14/21 Davida Restrepo, MARSHA [address] [place] [address] Specialty Care CoordinatorHematology/Oncology09/14/21Team MemberRelationship SpecialtyStart DateEnd Date Penelope Casas DO [address] [facility] [place] [place] [address] PCP - Generalmily Yjxqkxic79/3/22 Jonny Wilcox MD [address] [place] [address] Primary Staff PhysicianCardiology07/16/18 [place] [address] [place] [address] PhysicianHematology/Oncology09/14/21 Davida Restrepo RN [address] [facility] [place] [address] Specialty Care CoordinatorHematology/Oncology09/14/21Team MemberRelationship SpecialtyStart DateEnd Date Penelope Casas DO [address] [place] [address] PCP - GeneralFamily Kdqzcbnr14/3/22 Jonny Wilcox MD [address] [facility] [place] [address] Primary Staff PhysicianCardiology07/16/18 [place] [address] [place] [address] PhysicianHematology/Oncology09/14/21 Davida Restrepo RN [address] [facility] [place] [address] Specialty Care CoordinatorHematology/Oncology09/14/21Team MemberRelationship SpecialtyStart DateEnd Date Penelope Casas DO [address] [place] [address] PCP - GeneralFamily Mfgjaucw76/3/22 Jonny Wilcox MD [address] [place] [address] Primary Staff PhysicianCardiology07/16/18 [place] [address] [place] [address] PhysicianHematology/Oncology09/14/21 Davida Restrepo RN [address] [facility] [place] [address] Specialty Care CoordinatorHematology/Oncology09/14/21Te MemberRelationship SpecialtyStart DateEnd Date Penelope Casas DO [address] [facility] [place] [address] PCP - GeneralFamily Uyircgwn16/3/22 Jonny Wilcox MD [address] [place] [address] Primary Staff PhysicianCardiology07/16/18 [place] [address] [place] [address] PhysicianHematology/Oncology09/14/21 Davida Restrepo, MARSHA [address] [place] [address] Specialty Care CoordinatorHematology/Oncology09/14/21Team MemberRelationship SpecialtyStart DateEnd Date Penelope Casas DO [address] [facility] [place] [address] PCP - [facility] Osbjkqtd60/3/22 Jonny Wilcox MD [address] [place] [address] Primary Staff PhysicianCardiology07/16/18 [place] [address] [place] [address] PhysicianHematology/Oncology09/14/21 Davida Restrepo RN [address] [place] [address] Specialty Care CoordinatorHematology/Oncology09/14/21Team MemberRelationship SpecialtyStart DateEnd Date Penelope Casas DO [address] [facility] [place] [address] PCP - GeneralFamily Izoqtawh33/3/22 Jonny Wilcox MD [address] [place] [address] Primary Staff PhysicianCardiology07/16/18 [place] [address] [place] [address] PhysicianHematology/Oncology09/14/21 Davida Restrepo, RN [address] [place] [address] Specialty Care CoordinatorHematology/Oncology09/14/21Team MemberRelationship SpecialtyStart DateEnd Date Penelope Casas MD [address] [place] [address] PCP - GeneralFamily Medicine11/07/23Team MemberRelationshipSpecialtyStart DateEnd Date Penelope Casas MD [address] [place] [address] PCP - GeneralFamily Medicine11/07/23Team MemberRelationshipSpecialtyStart DateEnd Date Penelope Casas MD [address] [place] [address] PCP - Generalmily Medicine11/07/23Team MemberRelationshipSpecialtyStart DateEnd Date Penelope Casas MD [address] [place] [address] PCP - Generalmily Medicine11/07/23Team MemberRelationshipSpecialtyStart DateEnd Date Penelope Casas MD [address] [place] [address] PCP - Generalmily Medicine11/07/23 Team Status: Inactive Member Role Status Dates Wilton Herrmann DO Attending Provider Active Start : May 10, 2024 End: May 10, 2024Team MemberRelationshipSpecialtyStart DateEnd Date Penelope Casas DO [address] [place] [address] PCP - GeneralFamily Kzchouwa03/3/22 Jonny Wilcox MD [address] [place], [place] [address] Primary Staff PhysicianCardiology07/16/18 [place] [address] [place], [place] [address] PhysicianHematology/Oncology09/14/21 Davida Restrepo RN [address] [place], [place] [address] Specialty Care CoordinatorHematology/Oncology09/14/21Team MemberRelationship SpecialtyStart DateEnd Date Penelope Casas MD [address] [place] [id number] PCP - Generalmily Medicine11/07/23Team MemberRelationshipSpecialtyStart DateEnd Date Penelope Casas MD [address] [place] [address] PCP - Generalmily Medicine11/07/23Team MemberRelationshipSpecialtyStart DateEnd Date Penelope Casas MD [address] [place] [address] PCP - [facility]ally [facility]11/07/23Team MemberRelationshipSpecialtyStart DateEnd Date Penelope Casas MD [address] [place] [address] PCP - GeneralFamily Medicine11/07/23Team MemberRelationshipSpecialtyStart DateEnd Date Penelope Casas DO [address] [place] [address] PCP - GeneralFamily Zsvtigwn10/3/22 Jonny Wilcox MD [address] [place] [address] Primary Staff PhysicianCardiology07/16/18 [place] [address] [place] [address] PhysicianHematology/Oncology09/14/21 Davida Restrepo, MARSHA [address] [place] [address] Specialty Care CoordinatorHematology/Oncology09/14/21Team MemberRelationship SpecialtyStart DateEnd Date Penelope Casas MD [address] [facility] [place] [address] PCP - GeneralFamily Medicine11/07/23Team MemberRelationshipSpecialtyStart DateEnd Date Penelope Casas MD [address] [facility] [place] [address] PCP - GeneralFamily Medicine11/07/23Team MemberRelationshipSpecialtyStart DateEnd Date Penelope Casas DO PCP - GeneralFamily Medicine07/07/19Team MemberRelationshipSpecialtyStart DateEnd Date Penelope Casas DO PCP - GeneralFamily Medicine07/07/19Team MemberRelationshipSpecialtyStart DateEnd Date Penelope Casas MD [address] [place] [address] PCP - GeneralFamily Medicine11/07/23Team MemberRelationshipSpecialtyStart DateEnd Date Penelope Casas DO PCP - GeneralFamily Medicine07/07/19Team MemberRelationshipSpecialtyStart DateEnd Date Penelope Casas DO PCP - GeneralFamily Medicine07/07/19Team MemberRelationshipSpecialtyStart DateEnd Date Penelope Casas DO [address] [facility] [place] [address] PCP - GeneralFamily Kcqotgou65/3/22 Jonny Wilcox MD [address] [place] [address] Primary Staff PhysicianCardiology07/16/18 [place] [address] [place] [address] PhysicianHematology/Oncology09/14/21 Davida Restrepo, MARSHA [address] [place] [address] Specialty Care CoordinatorHematology/Oncology09/14/21Team MemberRelationship SpecialtyStart DateEnd Date Penelope Casas DO PCP - GeneralFamily Medicine07/07/19Team MemberRelationshipSpecialtyStart DateEnd Date Penelope Casas MD [address] [place] [address] PCP - GeneralFamily Medicine11/07/23Team MemberRelationshipSpecialtyStart DateEnd Date Penelope Casas MD [address] [place] [address] PCP - GeneralFamily Medicine11/07/23Team MemberRelationshipSpecialtyStart DateEnd Date Penelope Casas DO PCP - GeneralFamily Medicine07/07/19Team MemberRelationshipSpecialtyStart DateEnd Date Penelope Casas DO PCP - GeneralFamily Medicine07/07/19Team MemberRelationshipSpecialtyStart DateEnd Date Penelope Casas MD [address] [place] [address] PCP - GeneralFamily Medicine11/07/23Team MemberRelationshipSpecialtyStart DateEnd Date Penelope Casas MD [address] [place] [address] PCP - GeneralFamily Medicine11/07/23Team MemberRelationshipSpecialtyStart DateEnd Date Penelope Casas DO PCP - GeneralFamily Medicine07/07/19Team MemberRelationshipSpecialtyStart DateEnd Date Penelope Casas DO [address] [place] [address] PCP - GeneralFamily Cvzfzryx46/3/22 Jonny Wilcox MD [address] [place] [address] Primary Staff PhysicianCardiology07/16/18 [place] [address] [place], [place] [address] PhysicianHematology/Oncology09/14/21 Davida Restrepo, MARSHA [address] [place] [address] Specialty Care CoordinatorHematology/Oncology09/14/21Team MemberRelationship SpecialtyStart DateEnd Date Penelope Casas DO PCP - GeneralFamily Medicine07/07/19Team MemberRelationshipSpecialtyStart DateEnd Date Penelope Casas DO PCP - GeneralFamily Medicine07/07/19Team MemberRelationshipSpecialtyStart DateEnd Date Penelope Casas DO PCP - GeneralFamily Medicine07/07/19Team MemberRelationshipSpecialtyStart DateEnd Date Penelope Casas DO PCP - GeneralFamily Medicine07/07/19Team MemberRelationshipSpecialtyStart DateEnd Date Penelope Casas DO PCP - GeneralFamily Medicine07/07/19Team MemberRelationshipSpecialtyStart DateEnd Date Penelope Casas MD [address] [place] [address] PCP - GeneralFamily Medicine11/07/23Team MemberRelationshipSpecialtyStart DateEnd Date Penelope Casas DO PCP - GeneralFamily Medicine07/07/19Team MemberRelationshipSpecialtyStart DateEnd Date Penelope Casas DO PCP - GeneralFamily Medicine07/07/19Team MemberRelationshipSpecialtyStart DateEnd Date Penelope Casas DO PCP - GeneralFamily Medicine07/07/19Team MemberRelationshipSpecialtyStart DateEnd Date Penelope Casas MD [address] [place] [address] PCP - GeneralFamily Medicine11/07/23Team MemberRelationshipSpecialtyStart DateEnd Date Penelope Casas DO PCP - GeneralFamily Medicine07/07/19Team MemberRelationshipSpecialtyStart DateEnd Date Penelope Casas DO PCP - GeneralFamily Medicine07/07/19Team MemberRelationshipSpecialtyStart DateEnd Date Penelope Casas MD [address] [place] [address] PCP - GeneralFamily Medicine11/07/23Team MemberRelationshipSpecialtyStart DateEnd Date Penelope Casas MD [address] [place] [address] PCP - Generalmily Medicine11/07/23Team MemberRelationshipSpecialtyStart DateEnd Date Penelope Casas MD [address] [place] [address] PCP - Generalmily Medicine11/07/23Team MemberRelationshipSpecialtyStart DateEnd Date Penelope Casas MD [address] [place] [address] PCP - Generalmily Medicine11/07/23Team MemberRelationshipSpecialtyStart DateEnd Date Penelope Casas MD [address] [place] [address] PCP - Generalmily Medicine11/07/23Team MemberRelationshipSpecialtyStart DateEnd Date Penelope Casas MD [address] [place] [address] PCP - Generalmily Medicine11/07/23Team MemberRelationshipSpecialtyStart DateEnd Date Penelope Casas MD [address] [place] [address] PCP - Generalmily Medicine11/07/23Team MemberRelationshipSpecialtyStart DateEnd Date Penelope Casas MD [address] [facility] [place] [address] PCP - GeneralFamily Medicine11/07/23 Reason for Visit (unrecogniz ed section and content) ReasonCommentsFuture AppointmentReasonCommentsPatient QuestionReasonComments Medication QuestionReasonOnset DateCommentsRefill Dusnlpv15/13/2022ReasonOnset DateCommentsRefill Xahande82/02/2022ReasonCommentsHypercoagulable state6 month follow upReasonCommentsPrimary hypercoagulable state8 week follow upReason CommentsResultsReasonCommentsAppointmentPatient QuestionMedication Question OrdersSpecialtyDiagnoses / ProceduresReferred By ContactReferred To Contact Diagnoses Iron deficiency anemia secondary to blood loss (chronic) Iron deficiency anemia of Procedures INJECTION, FERRIC DERISOMALTOSE, 10 MG Kristofer Calix MD [address] [place] [address] [place] [address] [employer] [address] [place] [address] Referral IDStatusKelseyasonDenison DateExpiration DateVisits RequestedVisits [id number] Request SpecialtyDiagnoses / ProceduresReferred By ContactReferred To Contact Diagnoses Iron deficiency anemia secondary to blood loss (chronic) Iron deficiency anemia of Procedures IRON SUCROSE INJECTION PER 1 MG Kristofer Calix MD [address] [place] [address] [place] [address] [employer] [address] [place] [address] Referral IDStatusKelseyasonStart DateExpiration DateVisits RequestedVisits [id number]/28/20221/1/[id number] DateCommentsRefill Kiyfvmd8007/03/2022ReasonCommentsAnemiaFollow upReasonCommentsOrdersReason CommentsEstablished PatientReasonCommentsAppointmentReasonCommentsLab Orders ReasonCommentsPrimary hypercoagulable state (HCC)Follow upReasonComments Appointment RescheduledSpecialtyDiagnoses / ProceduresReferred By Contact Referred To Contact Diagnoses Iron deficiency anemia of Iron deficiency anemia secondary to blood loss (chronic) Procedures IRON SUCROSE INJECTION PER 1 MG Kristofer Calix MD [address] [place] [address] [place] [address] [address] [place] [address] Referral IDStatusReasonStart DateExpiration DateVisits RequestedVisits [id number]/8/20241/5/[id number] DateCommentsRefill Xfmgpum6011/29/2023easonCommentsAmenorrheaReasonOnset DateCommentsRefill Request 4ReasonCommentsRoutine VisitReasonCommentsPatient UpdateReason CommentsAnemiafollowupReasonCommentsfollow up miscarriageReasonCommentsVaginal BleedingDizzinessReasonCommentsIrregular CyclesReasonOnset DateCommentsRefill Mgfjrfd5907/25/2024ReasonOnset DateCommentsRefill Nqixyyx5610/20/2024ReasonOnset DateCommentsRefill Xbidfqm2510/29/2024ReasonCommentsGestational DiabetesSpecialty Diagnoses / ProceduresReferred By ContactReferred To ContactMaternal and Medicine Diagnoses Gestational diabetes mellitus (GDM), antepartum, gestational diabetes method of control unspecified Wilton Herrmann, DO [address] [place] [address] [place] [address] Phone: tel: fax: [facility] at [facility] [address] [place] [address] Phone: tel: fax: Referral IDStatusReasonStart DateExpiration DateVisits RequestedVisits [id number] [facility] Required [id number]ouemh stateAnemia8 week follow up ReasonCommentsMFM consultReasonCommentsRoutine VisitReasonComments [...] BE BASED ON THE PRIMARY CLINICAL RECORDS. [employer] [facility]. provides no warranty or guarantee of the accuracy or completeness of information in this document.
[2025-03-16 18:20] VITALS: BP 111/61; PULSE 80
== END 2025-03-16 18:45 | disposition home or self-care (01) ==
LOC: FBCO 12:04 → FBC 18:14
PROVIDERS: Visit Provider Obstetrics & Gynecology
DX: O24.419 Gestational diabetes mellitus in pregnancy, unspecified control (principal); Z3A.33 33 weeks gestation of pregnancy
CPT/HCPCS: 59025

== ENCOUNTER 2025-03-19 19:08 | Outpatient (OUT) | payer MEDICAID, SELFPAY ==
--- OUTSIDE RECORDS SUMMARY | 2025-03-10 09:50 | XMS_ITS | Encounter Summary ---
Author Organization [facility] Address [address] [place] [address] Care Team Providers Care Service Representative Name Role Phone Evans Cassa MD Primary Care Provider [phone] Reason for Visit * ReasonCommentsRoutine Visit Encounter Details DateTypeDepartmentCare Team (Latest Contact Info)Ywrwctlxbhc91/11/2025 9:50 AM ESTRoutine [facility] [address] [place] [address] Wilton Herrmann DO [address] [place] [id number] 32 weeks gestation of ([facility]); Third trimester ([facility]); Anemia complicating childbirth ([facility]); Anticoagulant long-term use; Antiphospholipid antibody positive; Blood pressure elevated without history of HTN; Coagulation defect, unspecified ([facility]); Antiphospholipid antibody syndrome ([facility]); Thyroid disease; Multigravida of advanced maternal age in third trimester ([facility]) Social History Tobacco UseTypesPacks/DayYears UsedDateSmoking Tobacco: NeverSmokeless Tobacco: NeverAlcohol UseStandard Drinks/WeekCommentsNever0 (1 standard drink = 0.6 oz pure alcohol)PHQ-2AnswerDate RecordedPatient Health Questionnaire-2 Score0 03/03/2025Estimated Date of MhicclrqFkooxyiyHjs91/05/2026ased on last menstrual period of 07/28/2024Sex and Gender InformationValueDate RecordedSex Assigned at BirthNot on fileLegal IupOsruor97/15/2023 11:19 PM EDTGender IdentityNot on fileSexual OrientationNot on filedocumented as of this encounter Last Filed Vital Signs Vital SignReadingTime TakenCommentsBlood Cwwzswsh809/7011 10:01 AM EST Pulse--Temperature--Respiratory Rate--Oxygen Saturation--Inhaled Oxygen Concentration--Tkpykk22.6 kg (210 lb 12.8 oz)03/10/2025 10:01 AM [...] Diagnosis Date Noted 32 weeks gestation of ([facility]) 11/28/2019 Abdominal pain 06/12/2023 Acute bronchitis due to infection 06/12/2023 Acute on chronic vesicular eczema of hands and feet 11/15/2023 Anemia complicating childbirth ([facility]) 01/16/2020 Anticoagulant long-term use 02/22/2020 Antiphospholipid antibody positive 09/10/2017 Antiphospholipid antibody syndrome ([facility]) 07/07/2019 Anxiety 06/12/2023 Blood pressure elevated without history of HTN 11/15/2023 BMI 37.0-37.9, adult 11/15/2023 Cerebral infarction, unspecified ([facility]) 05/16/2019 Cerebrovascular accident (CVA) due to stenosis of middle cerebral artery ([facility]) 02/22/2020 Cervicalgia 02/05/2019 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 ([facility]) 01/08/2020 Coagulation defect, unspecified ([facility]) 02/05/2019 Cold intolerance 11/15/2023 Deficiency of other specified B group vitamins 05/16/2019 Deviated septum 11/15/2023 Dizziness and giddiness 02/05/2019 Dry mouth 11/15/2023 Dysfunction of eustachian tube 06/12/2023 Dyspnea 06/12/2023 Elevated blood pressure reading 11/15/2023 Encounter for supervision of normal , unspecified, first trimester ([facility]) 05/29/2019 Environmental allergies 11/15/2023 Fatigue 12/29/2016 First degree perineal laceration during delivery ([facility]) 01/16/2020 Frequency of micturition 02/19/2019 Genitourinary symptoms 08/19/2021 Gestational diabetes mellitus (GDM), antepartum ([facility]) 01/26/2022 H/O: hypothyroidism 11/15/2023 Hematochezia 06/12/2023 History [...] anemia 01/16/2020 Irregular uterine bleeding 11/15/2023 problem ([facility]) 06/12/2023 Less than 8 weeks gestation of ([facility]) 06/05/2019 [facility] (current) use of 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/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 02/05/2019 Migraine without aura and without status migrainosus, not intractable 09/12/2017 Morbid obesity ([facility]) 11/15/2023 Muscle fasciculation 08/19/2021 Nasal polyps 11/15/2023 Non-smoker 11/15/2023 NEETA (obstructive sleep apnea) 11/15/2023 Other acute postprocedural pain 02/03/2019 Other general symptoms and signs 10/28/2019 Other immediate hemorrhage ([facility]) 01/16/2020 Other specified noninflammatory disorders of vagina 02/21/2019 Pain in joint 12/29/2016 Palpitations 08/26/2019 Paresthesia of bilateral legs 11/15/2023 Pelvic and perineal pain 02/01/2019 Personal history of urinary (tract) infections 01/16/2020 Pre-diabetes 11/15/2023 Primary hypercoagulable state ([facility]) 08/01/2022 Pruritus, unspecified 01/02/2020 Psychogenic hyperventilation 06/12/2023 Raised antibody titer 09/25/2017 Right lower quadrant pain 11/15/2023 Right otitis externa 11/15/2023 Salivary gland swelling 11/15/2023 Single live ([facility]) 01/15/2020 Snoring 11/15/2023 Speech and language deficit [...] drainage of cyst WISDOM TOOTH EXTRACTION 2007 [place] teeth REVIEW OF SYSTEMS Review of Systems: [...] nursing note reviewed. Exam conducted with a radiophone operator present. Vitals: Estimated body mass index is 34.02 kg/m?? as calculated from the following: Height as of 11/19/23: 5' 6 . Weight as of this encounter: 210 lb 12.8 oz. BP: 120/70 Patient's last menstrual period was 07/28/2024. Assessment/Plan ICD-10-CM 1. 32 weeks gestation of ([facility]) Z3A.32 POCT urinalysis dipstick manually resulted 2. Third trimester ([facility]) Z34.93 POCT urinalysis dipstick manually resulted 3. Anemia complicating childbirth ([facility]) O99.02 4. Anticoagulant long-term use Z79.01 5. Antiphospholipid antibody positive R76.0 6. Blood pressure elevated without history of HTN R03.0 7. Coagulation defect, unspecified ([facility]) D68.9 8. Antiphospholipid antibody syndrome ([facility]) D68.61 9. Thyroid disease E07.9 10. Multigravida of advanced maternal age in third trimester ([facility]) O09.523 Return OB: Patient presents today for [...] Plan of Treatment DateTypeDepartmentCare Team (Latest Contact Info)Gonppucnckk89/26/2025 11:10 AM ESTRoutine [facility] Piyush [address] [place] [address] Wilton Herrmann, [address] [place] [address] 04/08/2025 1:40 PM ESTRoutine [facility] Piyush [address] [place] [address] Wilton Herrmann, [address] [place] [address] 04/15/2025 1:50 PM ESTRoutine [facility] Piyush COLVIN [address] [place] [address] [place] [phone] Wilton Herrmann, [address] [place] [address] documented as of this encounter Procedures Procedure NamePriorityDate/TimeAssociated DiagnosisCommentsPOCT URINALYSIS BUUYQQJGXxzyhit06/11/2025 10:06 AM EST 32 weeks gestation of ([facility]) Third trimester ([facility]) documented in this encounter Results * (ABNORMAL) [...] / LateralityCollection Method / Volume Collection TimeReceived WrevGvzue35/11/2025 10:06 AM EST Narrative Authorizing ProviderResult TypeResult [...] MemberRelationshipSpecialtyStart DateEnd Date Evans Casas MD [address] [place] [address] PCP - GeneralFamily Medicine11/07/23documented as of this encounter
--- OUTSIDE RECORDS SUMMARY | 2025-03-19 19:10 | XMS_ITS | Encounter Summary ---
Author Organization [facility] Address [address] [facility] [place] [address] Care Team Providers Care Fixture Maker Name Role Phone Evans Casas MD Primary Care Provider [phone] Encounter Details DateTypeDepartmentCare Team (Latest Contact Info)Dikkevbnqje60/21/2025Clinisync Result Encounter [facility] External Department Unsolicited Wilton Herrmann, DO [address] [facility] [address] [place], [place] [address] Social History Tobacco UseTypesPacks/DayYears UsedDateSmoking Tobacco: NeverSmokeless Tobacco: NeverAlcohol UseStandard Drinks/WeekCommentsNever0 (1 standard drink = 0.6 oz pure alcohol)PHQ-2AnswerDate RecordedPatient Health Questionnaire-2 Score0 03/03/2025Estimated Date of DgnjaocqFilfojtsFme02/05/2026Based on last menstrual period of 07/28/2024Sex and Gender InformationValueDate RecordedSex Assigned at BirthNot on fileLegal PkqGqylaq46/15/2023 11:19 PM EDTGender IdentityNot on fileSexual OrientationNot on filedocumented as of this encounter Functional Status * Over the past 2 weeks, how often have you been bothered by any of the following problems?QuestionAnswerDate of AssessmentAuthorLittle interest or pleasure in doing thingsNot at all03/03/2025 1:52 PM Petra Tabares LPN Feeling down, depressed, or hopelessNot at all03/03/2025 1:52 PM Petra Tabares LPNPatient Health Questionnaire-2 Inbar94705/03/2024 1:52 PM Petra Tabares LPN documented as of this encounter Plan of Treatment DateTypeDepartmentCare Team (Latest Contact Info)Vrhfzbhdbdi20/26/2025 11:10 AM ESTRoutine [facility] [address] [place] [address] [place] [phone] Wilton Herrmann, [address] [place] [address] 04/08/2025 1:40 PM ESTRoutine [facility] OBKATHIEN [address] [place] [address] [place] [phone] Wilton Herrmann, [address] [place] [address] 04/15/2025 1:50 PM ESTRoutine [facility]BGYJua[facility] [address] [place] [address] [place] [phone] Wilton Herrmann, [address] [place] [address] documented as of this encounter Procedures Procedure NamePriorityDate/TimeAssociated DiagnosisCommentsALL THYROID STIM DVAPKTKRxezxsm19/21/2025 1:31 PM EDT ALL CBC WITH AUTO JBVWSlkmmie08/21/2025 1:31 PM EDT documented in this encounter Results * ALL THYROID STIM HORMONE (02/17/2025 1:31 PM EDT)ComponentValueRef RangeTest MethodAnalysis TimePerformed AtPathologist SignatureTHYROID STIMULATING HORMONE1.7450.358 - 3.740 uIU/mLTBHSpecimen (Source)Anatomical Location / LateralityCollection Method / VolumeCollection TimeReceived Time02/17/2025 1:31 PM EDT1 1:36 PM EDT Narrative CEDRICK - 02/17/2025 2:40 PM EDT Authorizing ProviderResult TypeResult StatusCorey Montez DOCLINISYNCFinal Result Performing OrganizationAddressCity/State/ZIP CodePhone Number CEDRICK [facility] * (ABNORMAL) ALL CBC WITH AUTO DIFF (02/17/2025 1:31 PM EDT)ComponentValueRef RangeTest MethodAnalysis TimePerformed AtPathologist SignatureTBH WBC9.64.0 - 11.0 10 3/uLTBHTBH RBC3.82(L)4.20 - 5.40 10 6/uLTBHTBH HGB12.112.0 - 16.0 g/dL TBHTBH HCT34.6(L)36.0 - 48.0 %TBHTBH MCV90.681.0 - 99.0 fLTBHTBH MCH31.726.7 - 34.0 pgTBHTBH MCHC35.029.9 - 35.2 g/dLTBHTBH RDW13.111.0 - 15.0 %TBHTBH XIK619 150 - 450 10 3/uLTBHTBH MPV9.79.5 - [...] MemberRelationshipSpecialtyStart DateEnd Date Evans Casas MD [address] [place] [address] PCP - GeneralFamily Medicine11/07/23documented as of this encounter
--- OUTSIDE RECORDS SUMMARY | 2025-03-19 19:10 | XMS_ITS | Encounter Summary ---
Author Organization [facility] Address [address] [facility] [place] [address] Care Team Providers Care Steam Box Tender Name Role Phone Evans Casas MD Primary Care Provider [phone] Encounter Details DateTypeDepartmentCare Team (Latest Contact Info)Vquexwarajr64/11/2025amboo flowsheet [facility] [address] [place] [address] Wilton Herrmann DO [address] [place], [facility] Social History Tobacco UseTypesPacks/DayYears UsedDateSmoking Tobacco: NeverSmokeless Tobacco: NeverAlcohol UseStandard Drinks/WeekCommentsNever0 (1 standard drink = 0.6 oz pure alcohol)PHQ-2AnswerDate RecordedPatient Health Questionnaire-2 Score0 03/03/2025Estimated Date of RgvzifvaPjniavqfAbm45/05/2026Based on last menstrual period of 07/28/2024Sex and Gender InformationValueDate RecordedSex Assigned at BirthNot on fileLegal PlzJxxrgs52/15/2023 11:19 PM EDTGender IdentityNot on fileSexual OrientationNot on filedocumented as of this encounter Plan of Treatment DateTypeDepartmentCare Team (Latest Contact Info)Tsczubawagg68/26/2025 11:10 AM ESTRoutine [facility] [address] [place] [address] Wilton Herrmann, DO [address] [facility] [place] [address] 04/08/2025 1:40 PM ESTRoutine [facility] [address] [place] [address] [place] [phone] Wilton Herrmann, [address] [facility] [address] [place], [place] [address] 04/15/2025 1:50 PM ESTRoutine [facility] OBKATHIEN [address] [place] [address] [place] [address] Wilton Herrmann, [address] [facility] [place] [address] documented as of this encounter Visit Diagnoses Not on filedocumented in this encounter Care Teams Team MemberRelationshipSpecialtyStart DateEnd Date Evans Casas MD [address] [place] [address] PCP - GeneralFamily Medicine11/07/23documented as of this encounter
--- OUTSIDE RECORDS SUMMARY | 2025-03-19 19:10 | XMS_ITS | Encounter Summary ---
Author Organization [facility] Address [address] [place] [address] Care Team Providers Care Life Sciences Instructor Name Role Phone Evans Casas MD Primary Care Provider [phone] Encounter Details DateTypeDepartmentCare Team (Latest Contact Info)Muvullqcnev70/07/2025linisync Result Encounter [facility] Unsolicited Mya Herrmann DO [address] [place], [place] [id number] Social History Tobacco UseTypesPacks/DayYears UsedDateSmoking Tobacco: NeverSmokeless Tobacco: NeverAlcohol UseStandard Drinks/WeekCommentsNever0 (1 standard drink = 0.6 oz pure alcohol)PHQ-2AnswerDate RecordedPatient Health Questionnaire-2 Score0 03/03/2025Estimated Date of RqukyjbwWozgzjroQau04/05/2026Based on last menstrual period of 07/28/2024Sex and Gender InformationValueDate RecordedSex Assigned at BirthNot on fileLegal RpmAgoduj90/15/2023 11:19 PM EDTGender IdentityNot on fileSexual OrientationNot on filedocumented as of this encounter Plan of Treatment DateTypeDepartmentCare Team (Latest Contact Info)Ofuujhzvpuq52/26/2025 11:10 AM ESTRoutine [facility] [place] [facility] [address] [place] [phone] Mya Herrmann DO [address] [place] [address] 04/08/2025 1:40 PM ESTRoutine [facility] [place] [facility] [address] [facility] [phone] Mya Herrmann, DO [address] [facility] [place] [address] 04/15/2025 1:50 PM ESTRoutine [facility] [place] [facility] [address] [facility] [phone] May Herrmann, DO [address] [facility] [place] [address] documented as of this encounter Procedures Procedure NamePriorityDate/TimeAssociated DiagnosisCommentsUS OB BPP W NON-HGRMGV4303/06/2025 8:10 AM EST documented in this encounter Results * US OB BPP W NON-STRESS (03/06/2025 8:10 AM EST)Anatomical Region LateralityModalityOtherSpecimen (Source)Anatomical Location / Laterality Collection Method / VolumeCollection TimeReceived Time03/06/2025 8:10 AM EST Narrative 03/06/2025 8:13 AM EST [facility] ?[address] ? [place] [address] ? Ultrasound Report ? Signed ? Patient: MADHU RENDON ?MR#: [id number] ?? : 1985 ?Acct:[id number] ?? Age/Sex: 39 / F ?ADM Date: 03/05/25 ?? Loc: US ? Attending Dr: Mya Herrmann D.O. ? Ordering Physician: Mya Herrmann D.O. ?? Date of Service: 03/05/25 ?? Procedure(s): US OB BPP w non-stress ?? Accession Number(s): [id number] ? cc: Mya Herrmann D.O.; Physician,Non-Staff M.D. ? [facility] ? [address] ? [place] [address] ? Patient Name: ?? MADHU RENDON ? MRN: [facility]:[id number] ? date: 1985 ?Sex: F ?? Assigned Patient Location: [facility] ?? Current Patient Location: ? Accession/Order Number: [id number] ?? Exam Date: 03/05/2025 ??19:15 ?Report Date: 03/06/2025 ??08:10 ? At the request of: ?? MYA ??SHILPA ??DO ? Procedure: ??US OB BPP w [...] Dictation Location: RADIO-PC-02 ? Electronically authenticated by: [id number] ??Y ?? Date: 03/06/2025 ??08:10 ? Dictated By: ?Pamela Pisano M.D. ? Signed By: ?03/06/25 0813 ? DD/ 0810 ? TD/TT: ? Shirt Sewer: Procedure Note Radiology, Radiologist, - 03/06/2025 [place] [address] Ultrasound Report Signed Patient: MADHU RENDON [facility]#: [id number] : 1985Acct:[id number] Age/Sex: 39 / FADM Date: 03/05/25 Loc: US Attending Dr: Mya Herrmann D.O. Ordering Physician: Mya Herrmann D.O. Date of Service: 03/05/25 Procedure(s): US OB BPP w non-stress Accession Number(s): [id number] cc: Mya Herrmann D.O.; Physician,Non-Staff [place]ia [place] [id number] Patient Name: MADHU RENDON MRN: [id number] date: 1985 Sex: F Assigned Patient Location: [facility] Current Patient Location: Accession/Order Number: [id number] Exam Date: 03/05/2025 19:15 Report Date: 03/06/2025 [...] Pisano M.D. 03/06/2025 8:10 AM Dictation Location: [place] [address] Electronically authenticated by: [id number] Y Date: 508:10 Dictated By: Pamela Pisano M.D. Signed By:03/06/25812 DD/ 9 TD/TT: Shirt Sewer: Authorizing ProviderResult TypeResult StatusCorecarmen Herrmann DOCLINISYNC IMAGINGFinal Result documented in this encounter Visit Diagnoses Not on filedocumented in this encounter Care Teams Team MemberRelationshipSpecialtyStart DateEnd Date Evans Casas MD [address] [place] [address] [place] [address] PCP - GeneralFamily Medicine11/07/23documented as of this encounter
--- OUTSIDE RECORDS SUMMARY | 2025-03-19 19:11 | XMS_ITS | Clinical Summary ---
Author Organization [facility] Address [address] [place] [address] Care Team Providers Care Knitter Hand Name Role Phone Jonny Wilcox MD Unavailable [phone] Cosmo Elliott MD Unavailable [phone] Davida Restrepo RN Unavailable [phone] Evans Casas DO Primary Care Provider [phone] Allergies Active AllergyReactionsCriticalityNoted DateCommentsCiprofloxacinOther: See Comments,Uocyrdp0005/19/2019 Dizziness, weakness sweating Ciprofloxacin-FluocinoloneOther: See Uhyeaawk02/20/2020 Dizziness, weakness sweating LactalbuminUnknown,GI WdmuwOsq27/26/2018 Crampy and gassy LactoseGI Upset09/10/2017 Diarrhea MilkOther: See CidztdooBar56/26/2018 Crampy and gassy Diarrhea Other reaction(s): GI Upset Crampy and gassy Milk Containing Products (Dairy)Other: See MlwxuvgsVgs19/26/2018 Crampy and gassy Diarrhea Other reaction(s): GI Upset Crampy and gassy Seasonal AllergiesGI Upset,Other: See Pnnkgxov30/06/2021 Medications MedicationSigDispense QuantityRefillsLast FilledStart DateEnd DateStatus multivitamin [...] MEAL(S)Active Active Problems ProblemNoted DateDiagnosed DateAntiphospholipid antibody gieqfvke11/29/2025 Vitamin D gdnltcfwoi19/29/2025Primary hypercoagulable state08/01/2022VA, old, speech/language bpgtrbf4808/01/2022Iron deficiency anemia secondary to blood loss (chronic)03/27/2022Iron deficiency anemia of myqukpzwg77/28/2022nti-cardiolipin antibody mcmniwns44/29/2018Migraine with aura and without status migrainosus, not hlpuiyylsrc10/16/2018Antiphospholipid antibody tdrjnivg58/14/2018Fatigue 12/29/2016Pain in joint12/29/2016Estimated Date of DeliveryCommentsYes 07/28/2024 Encounters DateTypeDepartmentCare GctoJthymuycmca03/03/2025 11:30 AM ESTVisit (SP) Office Hematology/Oncology [address] [place] [address] [place] [address] 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 APRN.LONG TERM CARE SOCIAL WORKER Antiphospholipid antibody positive (Primary Dx); Iron deficiency anemia secondary to blood loss (chronic); Vitamin D deficiency; Primary hypercoagulable state (HCC); CVA, old, speech/language deficit; Gestational diabetes mellitus (GDM) in third trimester, gestational diabetes method of control unspecified (HCC); History of hemorrhage; Anemia complicating , third trimester (HCC)03/02/20256824Koymjx78/02/2025 Telephone Hematology/Oncology [address] [place] [address] [place] [address] Rachael Johnson RN Nfspowj1501/26/2025Telephone Hematology/Oncology [address] [place] [address] [place] [address] Rachael Johnson RN 12/23/2024 11:30 AM EDTVisit (SP) Office Hematology/Oncology [address] [place] [address] [place] [address] 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 APRN.LONG TERM CARE SOCIAL WORKER Antiphospholipid antibody positive (Primary Dx); Iron [...] drink = 0.6 oz pure alcohol)PHQ-2AnswerDate RecordedPHQ-2 qorkk3734Area Deprivation Index AnswerDate RecordedNational Score (1-100), lower number is lower risk58 09/28/2022State Score (1-10), lower number is lower deqt6433Data from: https://www.neighborhoodatlas.medicine.[facility].edu/. Last address used for g[address]Estimated Date of DeliveryCommentsYes 07/28/2024Sex and Gender InformationValueDate RecordedSex Assigned at BirthNot on fileLegal MnoBouusi28/29/2018 10:06 AM ESTGender IdentityNot on fileSexual OrientationNot on fileOccupationIndustryJob Start DateJob End Datestay at home momNot on fileNot on fileNot on file Last Filed Vital Signs Vital SignReadingTime TakenCommentsBlood Etpddssi108/7911 11:56 AM EST Mpyyv348603/02/2025 11:56 AM TOACrbrebqebhe51.2 ??C (97.2 ??F)03/02/2025 11:56 AM ESTRespiratory Rajg328905/02/2024 11:56 AM ESTOxygen Tuswvxbxeg94%03/02/2025 11:56 AM ESTInhaled Oxygen Concentration--Wbqrzh54.2 kg (214 lb 4.6 oz)03/02/2025 11:56 AM BOPGkxltw300.7 cm (5' 6.02 )12/23/2024 11:34 AM EDTBody Mass Index34.56 12/23/2024 11:34 AM EDT Plan of Treatment DateTypeDepartmentCare Team (Latest Contact Info)Mymtkzgpkss10/05/2025 9:15 AM ESTOffice Visit [facility] [address] [place] [address] [place] [address] Return in 4 weeks lab and possible iron - needs this date/time04/03/2025 9:40 AM ESTVisit (SP) Office Hematology/Oncology [address] [place] [address] [place] [address] Salvador Dos Santos MD [address] [place] [address] [place] [address] Return in 4 weeks lab and possible iron - needs this date/time04/03/2025 10:00 AM [facility] Hematology/Oncology [address] [place] [address] [place] [address] Return in 4 weeks lab and possible iron - needs this date/timeHealth Maintenance Due DateLast DoneCommentsAnxiety Nnelquvps83/24/2004Depression Screening 10/22/2003HIV Ttxefqmmw39/24/2004Hepatitis C Hgivmvivf69/24/2004Hepatitis B Vaccine (1 of 3 - 19+ 3-dose series)2004HPV Vaccine (1 - 3-dose SCDM series)2012Cervical Cancer Shrnvyilb91DTaP,Tdap,Td Vaccine (2 - Td or Tdap)5007/03/2014Covid-19 Vaccine (1 - season)2024Influenza Vaccine (#1) (Patient/Parent/Guardian Counseled and Declines)RSV Vaccine (1 - 1-dose 75+ series)2060 Procedures Procedure NamePriorityDate/TimeAssociated DiagnosisCommentsCOMPREHENSIVE METABOLIC EJCWBRrfotlg36/03/2025 11:40 AM EST 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) Vitamin D deficiency Primary hypercoagulable state (HCC) CBC + REOMMucacpv91/03/2025 11:40 AM EST 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) Vitamin D deficiency Primary hypercoagulable state (HCC) VITAMIN D 25 PXFYMQCGdtjcts38/03/2025 11:40 AM EST 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) Vitamin D deficiency VITAMIN B12 SEAOPOiazvam12/26/2025 11:28 AM EDT Primary hypercoagulable state (HCC) CVA, old, speech/language deficit Cerebral hyponatremia Personal history of TIA (transient ischemic attack) IRON + KSZKPeuaifz09/26/2025 11:28 AM EDT Primary hypercoagulable state (HCC) CVA, old, speech/language deficit Cerebral hyponatremia Personal history of TIA (transient ischemic attack) FERRITIN UWNNkzirhn42/26/2025 11:28 AM EDT Primary hypercoagulable state (HCC) CVA, old, speech/language deficit Cerebral hyponatremia Personal history of TIA (transient ischemic attack) COMPREHENSIVE METABOLIC UIHINMdobkmo76/26/2025 11:28 AM EDT Primary hypercoagulable state (HCC) CVA, old, speech/language deficit Cerebral hyponatremia Personal history of TIA (transient ischemic attack) CBC + AOERQxffpvr30/26/2025 11:28 AM EDT Primary hypercoagulable state (HCC) CVA, old, speech/language deficit Cerebral hyponatremia Personal history of TIA (transient ischemic attack) from Last 3 Months Results * VITAMIN D 25 HYDROXY (03/02/2025 11:40 AM EST)ComponentValueRef RangeTest MethodAnalysis TimePerformed AtPathologist SignatureVitamin D 25 Jakikja34.6 31.0 - 80.0 ng/mL03/02/2025 9:47 PM ESTBARBERTON [facility] LABSpecimen (Source)Anatomical Location / LateralityCollection Method / VolumeCollection TimeReceived TimeBloodBLOOD SPECIMEN / UnknownVenipuncture / Cqbughl7503/02/2025 11:40 AM EST03/02/2025 11:41 AM EST Narrative Authorizing ProviderResult TypeResult StatusHolly Arsh OCHOACNPLABORATORY Final ResultPerforming OrganizationAddressCity/State/ZIP CodePhone Number [facility] [address] * (ABNORMAL) COMPREHENSIVE METABOLIC PANEL (03/02/2025 11:40 AM EST) Only the most recent of2 resultswithin the time period is included. ComponentValueRef RangeTest MethodAnalysis TimePerformed AtPathologist Signature Protein, Total7.26.3 - 8.0 g/dL03/02/2025 2:01 PM ESTNOR[facility]CO[facility] LABAlbumin4.13.9 - 4.9 g/dL03/02/2025 2:01 PM ESTNORTHCOAST [facility] LABCalcium, Total10.3(H)8.5 - 10.2 mg/dL03/02/2025 2:01 PM EST [facility] LABBilirubin, Total0.20.2 - 1.3 mg/dL 03/02/2025 2:01 PM ESTNORTHCOAMCLAREN PORT H[facility] LABAlkaline Phosphatase 6434 - 123 U/L105/02/2024 2:01 PM ESTNORTTRIN[facility] NVEZLZ67 (L)13 - 35 U/L105/02/2024 2:01 PM [facility] WJSOZC836 - 38 U/L105/02/2024 2:01 PM [facility] FSYMsotryb65(L) 74 - 99 mg/dL03/02/2025 2:01 PM [facility] LABComment: The [place] Diabetes Association (ADA) provides guidance for cutoff [...] Standards of Medical Care in Diabetes 2016, [place] [employer] Association. Diabetes Care. 2016.39(Suppl 1). BUN97 - 21 mg/dL03/02/2025 2:01 PM [facility] LAB Creatinine0.54(L)0.58 - 0.96 mg/dL03/02/2025 2:01 PM [facility] VKWUyrkfv028(L)136 - 144 mmol/L105/02/2024 2:01 PM [facility] LABPotassium3.93.7 - 5.1 mmol/L105/02/2024 2:01 PM [facility] XDSXundbdbb69(L)98 - 107 mmol/L105/02/2024 2:01 PM [facility] FTUYH015(L)22 - 30 mmol/L105/02/2024 2:01 PM [facility] LABAnion Xzc865 - 15 mmol/L105/02/2024 2:01 PM [facility] LABEstimated Glomerular Filtration Lvns949>=60 mL/min/1.73m 03/02/2025 2:01 PM [facility] LABComment:Estimated Glomerular Filtration Rate (eGFR) is [...] VolumeCollection TimeReceived TimeBloodBLOOD SPECIMEN / UnknownVenipuncture / Esclqsb9003/02/2025 11:40 AM EST03/02/2025 11:41 AM EST Narrative Authorizing ProviderResult TypeResult StatusHolly Arsh HATHAWAYN.CNPLABORATORY Final ResultPerforming OrganizationAddressCity/State/ZIP CodePhone Number [facility] [address] [place] [address] * (ABNORMAL) COMPLETE BLOOD COUNT AND DIFFERENTIAL (03/02/2025 11:40 AM EST) Only the most recent of2 resultswithin the time period is included. ComponentValueRef RangeTest MethodAnalysis TimePerformed AtPathologist Signature WBC8.643.70 - 11.00 k/uL03/02/2025 11:50 AM ESTNORTTRINITY [facility]ALTH [facility] LABRBC3.71(L)3.90 - 5.20 m/uL03/02/2025 11:50 AM [facility] MQAAevkwnwnux60.611.5 - 15.5 g/dL03/02/2025 11:50 AM ESTNORTTRINITY [facility] AABSitkqpuvvl07.0(L)36.0 - 46.0 %03/02/2025 11:50 AM EST [facility] QETGGN39.980.0 - 100.0 fL03/02/2025 11:50 AM ESTNORTHCHARBOR OAK[facility]OSP[facility] DUOPZG18.326.0 - 34.0 pg03/02/2025 11:50 AM ESTNORTHCHARBOR OAKS [facility]OSP[facility] KRTJNFL49.230.5 - 36.0 g/dL03/02/2025 11:50 AM [facility] LABRDW-CV13.311.5 - 15.0 %03/02/2025 11:50 AM [facility] LABPlatelet Agwmm108056 - 400 k/uL 03/02/2025 11:50 AM [facility] LABMPV9.49.0 - 12.7 fL 03/02/2025 11:50 AM [facility] LABNeutrophils %64.5% 03/02/2025 11:50 AM [facility] LABAbs Neut5.571.45 - 7.50 k/uL03/02/2025 11:50 AM [facility] LABLymphocytes %26.7%03/02/2025 11:50 AM [facility] LABAbs Lymph2.31 1.00 - 4.00 k/uL03/02/2025 11:50 AM [facility] LAB Monocytes %7.3%03/02/2025 11:50 AM [facility] LABAbs Mono0.63<0.87 k/uL03/02/2025 11:50 AM [facility] LAB Eosinophils %0.7%03/02/2025 11:50 AM [facility] LABAbs Eosin0.06<0.46 k/uL03/02/2025 11:50 AM [facility] Basophils %0.3%03/02/2025 11:50 AM [facility] LABAbs Baso0.03<0.11 k/uL03/02/2025 11:50 AM [facility] Immature Granulocytes %0.5%03/02/2025 11:50 AM [facility] LABAbs Immature Gran0.04<0.10 k/uL03/02/2025 11:50 AM [facility] LABNRBC0.0/100 WBC03/02/2025 11:50 AM ESTNOR[facility]CO[facility] LABAbsolute nRBC<0.01<0.01 k/uL03/02/2025 11:50 AM EST [facility] LABDiff HvyvGkxv01/03/2025 11:50 AM EST [facility] LABSpecimen (Source)Anatomical Location / LateralityCollection Method / VolumeCollection TimeReceived TimeBloodBLOOD SPECIMEN / UnknownVenipuncture / Wbnzlmk3603/02/2025 11:40 AM EST03/02/2025 11:41 AM EST Narrative Authorizing ProviderResult TypeResult Status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 APRN.CNPLABORATORY Final ResultPerforming OrganizationAddressCity/State/ZIP CodePhone Number [facility] [address] [place] [address] * VITAMIN B12 (12/23/2024 11:28 AM EDT)ComponentValueRef RangeTest Method Analysis TimePerformed AtPathologist SignatureVitamin F43481052 - 1,245 pg/mL 12/23/2024 7:00 PM EDTCKINDRED [facility]ALTHCARE LABSpecimen (Source) Anatomical Location / LateralityCollection Method / VolumeCollection Time Received TimeBloodBLOOD SPECIMEN / UnknownVenipuncture / Mfoscoe9212/23/2024 11:28 AM EDT12/23/2024 11:28 AM EDT Narrative Authorizing ProviderResult TypeResult Status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 APRN.CNPLABORATORY Final ResultPerforming OrganizationAddressCity/State/ZIP CodePhone Number [facility] [address] [address], * (ABNORMAL) IRON AND TIBC (12/23/2024 11:28 AM EDT)ComponentValueRef RangeTest MethodAnalysis TimePerformed AtPathologist YqslkybchUuqg3071 - 186 ug/dL 12/23/2024 6:45 PM EDTCKINDRED HEALTHCARE GOMYXXS708(H)232 - 386 ug/dL12/23/2024 6:45 PM EDTCKINDRED [facility]ALTHCARE LABTransferrin Kgxujhpwzx60.315.0 - 57.0 %12/23/2024 6:45 PM EDTCKINDRED [facility]ALTHCARE LABSpecimen (Source)Anatomical Location / LateralityCollection Method / Volume Collection TimeReceived TimeBloodBLOOD SPECIMEN / UnknownVenipuncture / Yxhhnfk6612/23/2024 11:28 AM EDT12/23/2024 11:28 AM EDT Narrative Authorizing ProviderResult TypeResult Status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 APRN.CNPLABORATORY Final ResultPerforming OrganizationAddressCity/State/ZIP CodePhone Number [facility] [address] [place] [id number], * FERRITIN (12/23/2024 11:28 AM EDT)ComponentValueRef RangeTest MethodAnalysis TimePerformed AtPathologist RylvwlxnnTsinaucc01.514.7 - 205.1 ng/mL12/23/2024 7:00 PM [facility] LABSpecimen (Source)Anatomical Location / LateralityCollection Method / VolumeCollection TimeReceived Time BloodBLOOD SPECIMEN / UnknownVenipuncture / Aczuprg9312/23/2024 11:28 AM EDT 12/23/2024 11:28 AM EDT Narrative Authorizing ProviderResult TypeResult Chester Caban APRN.CNPLABORATORY Final ResultPerforming OrganizationAddressCity/State/ZIP CodePhone Number [facility] [address] [place] [address], from Last 3 Months Insurance Care Teams Team MemberRelationshipSpecialtyStart DateEnd Date Evans Casas DO [address] [facility] [place] [address] PCP - GeneralFamily Vjufcxqm14/3/22 Jonny Wilcox MD [address] [place] [address] Primary Staff PhysicianCardiology07/16/18 [place] [address] [place], [place] [id number] PhysicianHematology/Oncology09/14/21 Davida Restrepo, RN [address] [place] [address] Specialty Care CoordinatorHematology/Oncology09/14/21
--- OUTSIDE RECORDS SUMMARY | 2025-03-19 19:11 | XMS_ITS | Encounter Summary ---
Author Organization [facility] Address [address] [place] [address] Care Team Providers Care Inside Channel Account Manager Name Role Phone Evans Casas MD Primary Care Provider [phone] Encounter Details DateTypeDepartmentCare Team (Latest Contact Info)Uvhfiqwzpns15/14/2025linisync Result Encounter [facility] Unsolicited Mya Herrmann DO [address] [place], [facility] Social History Tobacco UseTypesPacks/DayYears UsedDateSmoking Tobacco: NeverSmokeless Tobacco: NeverAlcohol UseStandard Drinks/WeekCommentsNever0 (1 standard drink = 0.6 oz pure alcohol)PHQ-2AnswerDate RecordedPatient Health Questionnaire-2 Score0 03/03/2025Estimated Date of ZridkizzWirptyqoSng10/05/2026Based on last menstrual period of 07/28/2024Sex and Gender InformationValueDate RecordedSex Assigned at BirthNot on fileLegal MxcZxqqxf20/15/2023 11:19 PM EDTGender IdentityNot on fileSexual OrientationNot on filedocumented as of this encounter Plan of Treatment DateTypeDepartmentCare Team (Latest Contact Info)Alljzkjpgiz68/26/2025 11:10 AM ESTRoutine [facility] [place] [facility] [address] [place] [phone] Mya Herrmann DO [address] [place] [address] 04/08/2025 1:40 PM ESTRoutine [facility] [place] [facility] [address] [facility] [phone] Mya Herrmann, DO [address] [facility] [place] [address] 04/15/2025 1:50 PM ESTRoutine [facility] [place] [facility] [address] [facility] [phone] Mya Herrmann, DO [address] [facility] [place] [address] documented as of this encounter Procedures Procedure NamePriorityDate/TimeAssociated DiagnosisCommentsUS OB BPP W NON-NJZVUI6703/13/2025 7:55 AM EST documented in this encounter Results * US OB BPP W NON-STRESS (03/13/2025 7:55 AM EST)Anatomical Region LateralityModalityOtherSpecimen (Source)Anatomical Location / Laterality Collection Method / VolumeCollection TimeReceived Time03/13/2025 7:55 AM EST Narrative 03/13/2025 7:57 AM EST [facility] ?[address] ? [place] [address] ? Ultrasound Report ? Signed ? Patient: MADHU RENDON ?MR#: [id number] ?? : 1985 ?Acct:[id number] ?? Age/Sex: 39 / F ?ADM Date: 03/12/25 ?? Loc: US ? Attending Dr: Mya Herrmann D.O. ? Ordering Physician: Mya Herrmann D.O. ?? Date of Service: 03/12/25 ?? Procedure(s): US OB BPP w non-stress ?? Accession Number(s): [id number] ? cc: Mya Herrmann D.O.; Physician,Non-Staff M.D. ? [facility] ? [address] ? [place] [address] ? Patient Name: ?? MADHU RENDON ? MRN: [facility]:[id number] ? date: 1985 ?Sex: F ?? Assigned Patient Location: [facility] ?? Current Patient Location: ? Accession/Order Number: [id number] ?? Exam Date: 03/12/2025 ??19:12 ?Report Date: 03/13/2025 ??07:55 ? At the request of: ?? MYA ??SHILPA ??DO ? Procedure: ??US OB BPP w non-stress ? BIOPHYSICAL PROFILE: ? CLINICAL INFORMATION: THIRD TRIMESTER Z34.93 ? COMPARISON: 03/05/2025 ? There is a single live intrauterine gestation in cephalic presentation. ??The ?? reported gestational age is 32 weeks 3 days. ??The heart rate measures ?? 153 beats per minute. ? FINDINGS: ? TONE: [...] ? Impression dictated by: Pamela Pisano M.D. ??03/13/2025 7:55 AM ? Dictation Location: RADIO-PC-02 ? Electronically authenticated by: [id number] ??Y ?? Date: 03/13/2025 ??07:55 ? Dictated By: ?Pamela Pisano M.D. ? Signed By: ?03/13/25 0757 ? DD/ 0755 ? TD/TT: ? Bioprocess Engineer: Procedure Note Radiology, Radiologist, - 03/13/2025 [place] [address] Ultrasound Report Signed Patient: MADHU RENDON [facility]#: [id number] : 1985Acct:[id number] Age/Sex: 39 / FADM Date: 03/12/25 Loc: US Attending Dr: Mya Herrmann D.O. Ordering Physician: Mya Herrmann D.O. Date of Service: 03/12/25 Procedure(s): US OB BPP w non-stress Accession Number(s): [id number] cc: May Herrmann D.O.; Physician,Non-Staff Tamia [facility] [place] [id number] Patient Name: MADHU RENDON MRN: [id number] date: 1985 Sex: F Assigned Patient Location: [facility] Current Patient Location: Accession/Order Number: [id number] Exam Date: 03/12/2025 19:12 Report Date: 03/13/2025 07:55 At the request of: MYA HERRMANN DO Procedure: US OB BPP w non-stress BIOPHYSICAL PROFILE: CLINICAL INFORMATION: THIRD TRIMESTER Z34.93 COMPARISON: 03/05/2025 There is a single live intrauterine gestation in cephalic presentation.The reported gestational age is 32 weeks 3 days. The heart ratemeasures 153 beats per minute. FINDINGS: TONE: 1 or [...] PROFILE Impression dictated by: Pamela Pisano M.D. 03/13/2025 7:55 AM Dictation Location: [place] [address] Electronically authenticated by: [id number] Y Date: 507:55 Dictated By: Pamela Pisano M.D. Signed By:03/13/25 0757 DD/ 4 TD/TT: Bioprocess Engineer: Authorizing ProviderResult TypeResult StatusCorecarmen Herrmann DOCLINISYNC IMAGINGFinal Result documented in this encounter Visit Diagnoses Not on filedocumented in this encounter Care Teams Team MemberRelationshipSpecialtyStart DateEnd Date Evans Casas MD [address] [place] [address] [place] [address] [phone] (work) PCP - [facility]Fanorth [facility] Medicine11/07/23documented as of this encounter
--- OUTSIDE RECORDS SUMMARY | 2025-03-19 19:11 | XMS_ITS | Clinical Summary ---
Author Organization [facility] Address [address] [place] [address] Care Team Providers Care Bridge Carpenter Name Role Phone Evans Casas MD Primary Care Provider [phone] Allergies Active AllergyReactionsCriticalityNoted DateCommentsCiprofloxacinGI intolerance 3Ciprofloxacin-Fluocinolone Pf05/19/2019 Other Reaction(s): Other: See Comments Dizziness, weakness sweating Ljkigpx0709/10/2017 Other Reaction(s): GI Disturbance, GI Upset Diarrhea Diarrhea Lactose Intolerance (Gi)11/15/2023 Other Reaction(s): Illness Xywsoduonui11/06/2021 Other Reaction(s): Other (See Comments) KzjlzYaygwVyr15/26/2018 seasonal Other Reaction(s): Other (See Comments) Medications MedicationSigDispense QuantityRefillsLast FilledStart DateEnd DateStatus Multiple Vitamin (Multi-Vitamin) tablet Take 1 tablet by mouth in the morning.Active levothyroxine (Synthroid) 25 MCG tablet Indications:Abnormal TSHTake 1 tablet (25 mcg) by mouth in the morning. Take before meals. 30 tablet 110//125483//6Active enoxaparin (Lovenox) 40 MG/0.4ML injection 1 (one) time each day at the same timeActive docusate sodium (Colace) 50 MG capsule Take 100 mg by mouth in the morning and 100 mg before bedtime.Active polyethylene glycol, PEG, 3350 (Glycolax) 17 GM/SCOOP powder Take 17 g by mouth DailyActive Alcohol Swabs (Alcohol Prep Pad) 70 % pads Indications:Second trimester ([facility]),13 weeks gestation of ([facility]),Multigravida of advanced maternal age in second trimester ([facility]), Gestational diabetes mellitus (GDM), antepartum, gestational diabetes method of control unspecified([facility]),Elevated glucose tolerance testApply 1 Pad topically Daily Use four times daily to check FSBS. 150 each tive Blood Glucose Monitoring Suppl (D-[employer] Glucometer) w/Device kit Indications:Second trimester ([facility]),13 weeks gestation of ([facility]),Multigravida of advanced maternal age in second trimester ([facility]), Gestational diabetes mellitus (GDM), antepartum, gestational diabetes method of control unspecified([facility]),Elevated glucose tolerance test1 kit Daily Use [...] (GDM), antepartum, gestational diabetes method of control unspecified([facility])Take 3 tablets (1,500 mg) by mouth in the evening. Take with meals Do not crush, chew, or split. 90 tablet 5Active Enoxaparin Sodium (Lovenox) 40 MG/0.4ML solution prefilled syringe Indications:Anticoagulant long-term use,Antiphospholipid antibody positive, Antiphospholipid antibody syndrome ([facility])Inject 40 mg as directed Daily for 30 doses 12 mL Expired Active Problems ProblemNoted DateDiagnosed DateH/O loss01/05/2025Multigravida of advanced maternal age in second trimester ([facility])01/05/2025Thyroid bnmdyoo9401/05/2025 Referred otalgia of right ear11/19/2023LPRD (laryngopharyngeal reflux disease) 11/19/2023cute on chronic vesicular eczema of hands and feet11/15/2023lood pressure elevated without history of HTN11/15/2023MI 37.0-37.9, adult11/15/2023 Cold knqryuaksmj72/18/2024eviated uipasa9911/15/2023ry mouth11/15/2023Elevated blood pressure hvgmyap7111/15/2023Environmental ajozgbnks13/18/2024H/O: gjfbnudyhjnfqr70/18/2024History of zwthbw0711/15/2023History of cerebrovascular lmafxsxa41/18/2024 Overview (11/15/2023): reported by pt - related to antiphospholipid syndrome History of COVID-19011/15/2023History of gestational nuwsftqc63/18/2024History of kidney tkxrzi2911/15/2023Hx of iron deficiency qbnmnh1511/15/2023Immunization not carried out because of patient dpesikja51/18/2024Iron ljfipyxvhy51/18/2024 Irregular uterine /18/2024Morbid gflowzl5411/15/2023Nasal polyps 11/15/2023Non-natzcl6111/15/2023OSA (obstructive sleep apnea)11/15/2023aresthesia of bilateral legs11/15/2023re-niufxgjr83/18/2024Right lower quadrant pain 4Right otitis fcxbvnc2911/15/2023Salivary gland wekblvmh28/18/2024Snoring 11/15/2023bdominal pain06/12/2023cute bronchitis due to ppjdjafmb40/13/2024 Agfeheq1806/12/2023ysfunction of eustachian tube06/12/20234241Fvxbmnz64/13/2024 Jmkjzmprpqak81/13/2024Inhalation pjunqw4706/12/2023Lactation problem ([facility]) 06/12/2023sychogenic nlztsagtoalxfhrb85/13/2024Suspected severe acute respiratory syndrome coronavirus 2 (SARS-CoV-2) pufwqsgzb35/13/2024Hypoglycemia 06/12/2023rimary hypercoagulable state ([facility])08/01/2022estational diabetes mellitus (GDM), antepartum ([facility])01/26/2022Genitourinary fxflkheo39/22/2022 Muscle htttmuvcayuyx50/22/2022nticoagulant long-term use02/22/2020 Cerebrovascular accident (CVA) due to stenosis of middle cerebral artery 02/22/2020Anemia complicating childbirth ([facility])01/16/2020First degree perineal laceration during delivery ([facility])01/16/2020Acute posthemorrhagic jumulu2001/16/2020Other immediate hemorrhage ([facility])01/16/2020 Personal history of urinary (tract) yihwrtqvju60/18/2020Single live ([facility])01/15/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 ([facility])01/08/2020Pruritus, zuigpwawhpu00/04/2020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)12/30/201932 weeks gestation of ([facility])11/28/2019Thrombocytopenia, ehqlsbwmuoe72/23/2020Other general symptoms and signs10/28/2019Urinary tract clymuishv94/18/2020 Mvhacfthqwpl91/28/2020SVT (supraventricular tachycardia)08/26/2019 Antiphospholipid antibody syndrome ([facility])07/07/2019Other bacterial infections of unspecified site06/27/2019Less than 8 weeks gestation of ([facility]) 06/05/2019Encounter for supervision of normal , unspecified, first trimester ([facility])05/29/2019Cerebral infarction, vgzqgwanard50/17/2020 Deficiency of other specified B group xhpjzcma55/17/3427Qvilnwnfjsdg51/17/2020 Unspecified condition associated with female genital organs and menstrual cycle 05/09/2019Other specified noninflammatory disorders of pnnyjz5102/21/2019Frequency of omuxmxhcepw59/23/2019Unspecified ovarian cyst, right side02/06/2019 Rhinccczvfq00/09/2019Coagulation defect, unspecified ([facility])02/05/2019 Dizziness and dapisfzwc08/09/2019Long term (current) use of 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/cbbrtnleunbjs39/09/2019Other acute postprocedural pain02/03/2019 Pelvic and perineal pain02/01/2019Syncope and ehdfeizs92/04/2019Raised antibody titer09/25/2017Migraine without aura and without status migrainosus, not phmvgepzkfz85/16/2018Antiphospholipid antibody ypbwkxzh33/14/2018Fatigue 12/29/2016Idiopathic progressive dxstjrdefv45/01/2017Pain in joint12/29/2016 Estimated Date of HypxoeraCzrxskqaUbu31/05/2026Based on last menstrual period of 07/28/2024 Encounters DateTypeDepartmentCare FrbuGdbmrpmtadj69/14/2025Clinisync Result Encounter [facility] External Department Unsolicited Mya Herrmann, DO 03/10/2025 9:50 AM [place] [address] Mya Herrmann, DO 32 weeks gestation of ([facility]); Third trimester ([facility]); Anemia complicating childbirth ([facility]); Anticoagulant long-term use; Antiphospholipid antibody positive; Blood pressure elevated without history of HTN; Coagulation defect, unspecified ([facility]); Antiphospholipid antibody syndrome ([facility]); Thyroid disease; Multigravida of advanced maternal age in third trimester ([facility])03/10/2025 Bamboo flowsheet [facility] [address] [place] [address] Mya Herrmann, DO 5Clinisync Result Encounter [facility] External Department Unsolicited Mya Herrmann, DO 5Abstract [facility] [address] [place] [address] Mya Herrmann, DO 03/03/2025Patient Outreach [facility] [address] [place] [id number] Petra Whitmore LPN 02/27/2025linisync Result Encounter [facility] External Department Unsolicited Mya Herrmann, DO 02/23/2025 9:00 AM EDTRoutine [facility] [address] [place] [phone] Mya Herrmann, DO Third trimester ([facility]); 30 weeks gestation of ([facility])02/23/2025amboo flowsheet [facility] [address] [place] [address] [place] [address] Mya Herrmann, DO 02/20/2025linisync Result Encounter [facility] External Department Unsolicited MontezMya montesinos, DO 02/20/2025linisync Result Encounter [facility] External Department Unsolicited MontezMya roche, DO 02/17/2025linisync Result Encounter [facility] External Department Unsolicited MontezMya montesinos, DO 02/17/2025bstract [facility] [address] [place] [address] [place] [address] Mya Herrmann, DO 02/09/2025 10:30 AM EDTRoutine [facility] [address] [place] [address] [place] [address] Mya Herrmann, DO Third trimester ([facility]); 28 weeks gestation of ([facility]); Anemia complicating childbirth ([facility]); Anticoagulant long-term use; Antiphospholipid antibody positive; Blood pressure elevated without history of HTN; Coagulation defect, unspecified ([facility])02/09/2025bstract [facility] [address] [place] [address] [place] [phone] Mya Herrmann, DO 02/03/2025Patient Outreach [facility] [address] [place] [address] Petra Whitmore LPN 01/21/2025Telephone [facility] [address] [place] [address] [place] [address] Celia Keith NP 01/19/2025 9:00 AM EDTRoutine [facility] [address] [place] [address] [place] [address] Mya Herrmann DO Second trimester ([facility]); 25 weeks gestation of ([facility]); Gestational diabetes mellitus (GDM), antepartum, gestational diabetes method of control unspecified([facility]); Anticoagulant long-term use; Antiphospholipid antibody positive; Antiphospholipid antibody syndrome ([facility])01/19/2025bstract [facility] [address] [facility] [place] [address] Mya Herrmann, 01/15/2025Telephone [facility] [address] [facility] [place] [address] Lala Hess MA 01/06/2025Patient Outreach [facility] [address] [place] [address] Petra Whitmore LPN 01/05/2025 2:40 PM EDTRoutine [facility] [address] [facility] [place] [address] Mya Herrmann DO Second trimester ([facility]); 23 weeks gestation of ([facility]); Thyroid disease ; Gestational diabetes mellitus (GDM), antepartum, gestational diabetes method of control unspecified([facility]); Multigravida of advanced maternal age in second trimester ([facility]); H/O loss; Lightheaded; Swvpihipq71/08/2025amboo flowsheet [facility] [address] [facility] [place] [address] Mya Herrmann, 12/26/2024bstract [facility] [address] [facility] [place] [address] Mya Herrmann, 12/18/2024bstract [facility] [address] [facility] [place] [address] Mya Herrmann DO from Last 3 Months Family History Medical HistoryRelationNameCommentsCerebrovascular AccidentFatherDiabetesFather Heart problemsMaternal GrandfatherMental illnessMaternal GrandmotherCancer Paternal GrandfatherDiabetesPaternal GrandfatherCancerPaternal Grandmother DiabetesPaternal GrandmotherDiabetesSisterRelationNameStatusCommentsFather Maternal GrandfatherMaternal GrandmotherPaternal GrandfatherPaternal Grandmother Sister Social History Tobacco UseTypesPacks/DayYears UsedDateSmoking Tobacco: NeverSmokeless Tobacco: Never Tobacco Cessation:Counseling Given: Not Answered Alcohol UseStandard Drinks/WeekCommentsNever0 (1 standard drink = 0.6 oz pure alcohol)PHQ-2AnswerDate RecordedPatient Health Questionnaire-2 Wssdb85005/03/2024 Estimated Date of VspawexkRhhtxwtzOit84/05/2026ased on last menstrual period of 07/28/2024Sex and Gender InformationValueDate RecordedSex Assigned at BirthNot on fileLegal XigFveiyq95/15/2023 11:19 PM EDTGender IdentityNot on file Sexual OrientationNot on file Last Filed Vital Signs Vital SignReadingTime TakenCommentsBlood Exygjxef767/7003/10/2025 10:01 AM EST Pulse--Temperature--Respiratory Rate--Oxygen Saturation--Inhaled Oxygen Concentration--Dtmcay06.6 kg (210 lb 12.8 oz)03/10/2025 10:01 AM ENTNwmjnk105.6 cm (5' 6 )11/19/2023 1:48 PM EDTBody Mass Index34.02011/19/2023 1:48 PM EDT Plan of Treatment DateTypeDepartmentCare Team (Latest Contact Info)Spadodhdrtv31/26/2025 11:10 AM ESTRoutine [facility] [address] [place] [phone] Mya Herrmann DO [address] [place] [address] 04/08/2025 1:40 PM ESTRoutine [facility] [address] [facility] [address] Mya Herrmann, DO [address] [facility] [address] [place] [address] 04/15/2025 1:50 PM ESTRoutine [facility] [address] [facility] [place] [address] Mya Herrmann, DO [address] [facility] [place] [address] Health MaintenanceDue DateLast DoneCommentsHPV/Hskzut4910/22/2015COVID-19 Vaccine ( season)2024Influenza Vaccine (#1)5Cervical Cancer Mthnvxjzq01/18/2025Pap Smear2Pneumococcal Vaccine: Pediatrics (0 to 5 Years) and At-Risk Patients (6 to 64 Years)Aged OutNo longer eligible based on patient's age to complete this topic Procedures Procedure NamePriorityDate/TimeAssociated DiagnosisCommentsUS OB BPP W NON-OOHFFK5103/13/2025 7:55 AM EST POCT URINALYSIS VHLWJFHUGulxobv15/11/2025 10:06 AM EST 32 weeks gestation of ([facility]) Third trimester ([facility]) US OB BPP W NON-UHGMDO6603/06/2025 8:10 AM EST US OB BPP W NON-DBRHFE9502/27/2025 10:53 AM EDT POCT URINALYSIS HFSYJDKZAzenhwl67/27/2025 9:38 AM EDT 30 weeks gestation of ([facility]) US OB YADSAM8702/20/2025 8:37 AM EDT US OB BPP W NON-IGJRUJ8902/20/2025 8:37 AM EDT ALL THYROID STIM NBODHUMRmsqatk85/21/2025 1:31 PM EDT ALL CBC WITH AUTO LNLAIpuolek14/21/2025 1:31 PM EDT POCT URINALYSIS LBBDABDWHucavjt52/13/2025 10:55 AM EDT 28 weeks gestation of ([facility]) POCT URINALYSIS VOKFTOYRPjttsql37/22/2025 9:33 AM EDT Second trimester ([facility]) POCT URINALYSIS JSQOQTUNWchjzfc92/08/2025 3:25 PM EDT Second trimester ([facility]) PAP VUOXKLzinmcc01/18/2022 12:00 AM EDTfrom Last 3 Months or Most Recently Relevant to Health Maintenance Results * US OB BPP W NON-STRESS (03/13/2025 7:55 AM EST) Only the most recent of4 resultswithin the time period is included. Anatomical RegionLateralityModalityOtherSpecimen (Source)Anatomical Location / LateralityCollection Method / VolumeCollection TimeReceived Time03/13/2025 7:55 AM EST Narrative 03/13/2025 7:57 AM EST [facility] ?[address] ? [place] [address] ? Ultrasound Report ? Signed ? Patient: MADHU RENDON ?MR#: [id number] ?? : 1985 ?Acct:[id number] ?? Age/Sex: 39 / F ?ADM Date: 03/12/25 ?? Loc: US ? Attending Dr: Mya Herrmann D.O. ? Ordering Physician: Mya Herrmann D.O. ?? Date of Service: 03/12/25 ?? Procedure(s): US OB BPP w non-stress ?? Accession Number(s): [id number] ? cc: Mya Herrmann D.O.; Physician,Non-Staff M.D. ? [facility] ? [address] ? [place] [address] ? Patient Name: ?? MADHU RENDON ? MRN: [facility]:[id number] ? date: 1985 ?Sex: F ?? Assigned Patient Location: [facility] ?? Current Patient Location: ? Accession/Order Number: [id number] ?? Exam Date: 03/12/2025 ??19:12 ?Report Date: [...] Dictation Location: RADIO-PC-02 ? Electronically authenticated by: [id number] ??Y ?? Date: 03/13/2025 ??07:55 ? Dictated By: ?Pamela Pisano M.D. ? Signed By: ?03/13/25 0757 ? DD/ 0755 ? TD/TT: ? Tank Truck Operator: Procedure Note Radiology, Radiologist, - 03/13/2025 [place] [address] Ultrasound Report Signed Patient: MADHU RENDON [facility]#: [id number] : 1985Acct:[id number] Age/Sex: 39 / FADM Date: 03/12/25 Loc: US Attending Dr: Mya Herrmann D.O. Ordering Physician: Mya Herrmann D.O. Date of Service: 03/12/25 Procedure(s): US OB BPP w non-stress Accession Number(s): [id number] cc: Mya Herrmann D.O.; Physician,Non-Staff Tamia [address] [address] Patient Name: MADHU RENDON MRN: [id number] date: 1985 Sex: F Assigned Patient Location: [facility] Current Patient Location: Accession/Order Number: [id number] Exam Date: 03/12/2025 19:12 Report Date: 03/13/2025 [...] Pisano M.D. 03/13/2025 7:55 AM Dictation Location: [place] [address] Electronically authenticated by: [id number] Y Date: 507:55 Dictated By: Pamela Pisano M.D. Signed By:03/13/25 075 DD/ 4 TD/TT: Tank Truck Operator: Authorizing ProviderResult TypeResult StatusCorey Montez DOCLINISYNC IMAGINGFinal Result * (ABNORMAL) POCT urinalysis dipstick manually resulted (03/10/2025 10:06 AM EST) Only the most recent of5 resultswithin the [...] EDT Narrative 02/20/2025 8:40 AM EDT [facility] ?[address] ? [place] [address] ? Ultrasound Report ? Signed ? Patient: MADHU RENDON ?MR#: [id number] ?? : 1985 ?Acct:[id number] ?? Age/Sex: 39 / F ?ADM Date: 02/19/25 ?? Loc: US ? Attending Dr: Mya Herrmann D.O. ? Ordering Physician: Mya Herrmann D.O. ?? Date of Service: 02/19/25 ?? Procedure(s): US OB growth ?? Accession Number(s): [id number] ? cc: Mya Herrmann D.O.; Physician,Non-Staff M.D. ? [facility] ? [address] ? [place] [address] ? Patient Name: ?? MADHU RENDON ? MRN: [facility]:[id number] ? date: 1985 ?Sex: F ?? Assigned Patient Location: LAB ?? Current Patient Location: ? Accession/Order Number: [id number] ?? Exam Date: 02/19/2025 ??19:47 ?Report Date: [...] Dictation Location: RADIO-PC-02 ? Electronically authenticated by: [id number] ??Y ?? Date: 02/20/2025 ??08:37 ? Dictated By: ?Pamela Pisano M.D. ? Signed By: ?10/24/25 0840 ? DD/ 0837 ? TD/TT: ? Tank Truck Operator: Procedure Note Radiology, Radiologist, MD - 02/20/2025 [place] [address] Ultrasound Report Signed Patient: MADHU RENDON SMR#: [id number] : 1985Acct:[id number] Age/Sex: 39 / FADM Date: 02/19/25 Loc: US Attending Dr: Mya Herrmann D.O. Ordering Physician: Mya Herrmann D.O. Date of Service: 02/19/25 Procedure(s): US OB growth Accession Number(s): [id number] cc: Mya Herrmann D.O.; Physician,Non-Staff M.DLazara The [place] [id number] Patient Name: MADHU RENDON MRN: [id number] date: 1985 Sex: F Assigned Patient Location: LAB Current Patient Location: Accession/Order Number: [id number] Exam Date: 02/19/2025 19:47 Report Date: 02/20/2025 [...] Pisano M.D. 02/20/2025 8:37 AM Dictation Location: [place] [address] Electronically authenticated by: [id number] Y Date: 508:37 Dictated By: Pamela Pisano M.D. Signed By:02/20/25839 DD/ 6 TD/TT: Tank Truck Operator: Authorizing ProviderResult TypeResult StatusCorey Montez DOCLINISYNC [...] 1:31 PM EDT)ComponentValueRef RangeTest MethodAnalysis TimePerformed AtPathologist SignatureTB WBC9.64.0 - 11.0 10 3/uLTBHTBH RBC3.82(L)4.20 - 5.40 10 6/uLTBHTBH HGB12.112.0 - 16.0 g/dL TBHTBH HCT34.6(L)36.0 - 48.0 %TBHTBH MCV90.681.0 - 99.0 fLTBHTBH MCH31.726.7 - 34.0 pgTBHTBH MCHC35.029.9 - 35.2 g/dLTBHTBH RDW13.111.0 - 15.0 %TBHTBH PLT 546262 - 450 10 3/uLTBHTBH MPV9.79.5 - 13.5 [...] Health Maintenance Insurance Care Teams Team MemberRelationshipSpecialtyStart Date Evans Casas MD [address] [place] [address] PCP - GeneralFamily Medicine11/07/23
--- OUTSIDE RECORDS SUMMARY | 2025-03-19 19:11 | XMS_ITS | Clinical Summary ---
Author Organization [facility] Address [address], [address] [place] [address] Care Team Providers Care Computer Sciences Professor Name Role Phone Evans Casas DO Primary Care Provider [phone] Allergies Active AllergyReactionsCriticalityNoted DateCommentsCiprofloxacinOther (See Comments)06/19/2019Ciprofloxacin-Fluocinolone PfOther [...] elevated without history of HTN12/11/2023ry mouth 12/11/2023Environmental /13/2024H/O: qnzihfxawpiwld02/13/2024History of pyhcer3012/11/2023History of gestational werwhhpd10/13/2024History of kidney gsfgfb6412/11/2023Hx of iron deficiency zbmdvu9312/11/2023Immunization not carried out because of patient bhxmlmat92/13/2024Morbid tgwyaxb5412/11/2023Non-smoker 12/11/2023OSA (obstructive sleep apnea)12/11/2023ight otitis iyajqtf0712/11/2023 Abdominal pain06/12/2023cute bronchitis due to pqcdwofbt38/13/2024nxiety 06/12/2023ysfunction of eustachian tube06/12/20236514Gunxrkx78/13/2024Hematochezia 06/12/2023History of severe acute respiratory syndrome coronavirus 2 (SARS-CoV-2) umuacal0006/12/20230802Ohmadkyvmydw65/13/2024Inhalation wdpimg0106/12/2023 glwkqvz1206/12/2023sychogenic btatlfiiybpsuueg70/13/2024Suspected severe acute respiratory syndrome coronavirus 2 (SARS-CoV-2) wcztnalsm60/13/2024 Primary hypercoagulable state08/01/2022estational diabetes mellitus in , unspecified rjzqapi9701/26/2022Genitourinary stffouum22/22/2022Muscle nzqqcgeamloap08/22/2022TIA (transient ischemic attack)06/16/2020erebrovascular accident (CVA) due to stenosis of middle cerebral umdiay6202/22/2020Anticoagulant long-term use02/22/2020Acute posthemorrhagic zbkcbl9501/16/202039 weeks gestation of /18/2020Anemia complicating ginhtkedee52/18/2020Endocrine, nutritional and metabolic diseases complicating hxupodsfrp16/18/2020First degree perineal laceration during swyoexss93/18/2020Other immediate jjgjpxiwrv72/18/2020Personal history of transient ischemic attack (TIA), and cerebral infarction without residual vwotpweg37/18/2020Personal history of urinary (tract) hvvxrlzmla95/18/2020Single live birth01/15/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01/08/202038 weeks gestation of kttdetbni43/09/2020Pruritus, qgxpkxolcsw11/04/202037 weeks gestation of uiaovzbeb54/04/805764 weeks gestation of itlfkozoa37/01/2020Other speech and language deficits following cerebral nxiwnkglyu53/01/2020Other diseases of the blood and blood-forming organs and certain disorders involving the immune mech anism complicating owehpakhgb27/25/412995 weeks gestation of yelzfoasc15/24/2020 34 weeks gestation of slumbsxsc21/18/098068 weeks gestation of 12/10/201932 weeks gestation of kiqcekdxk94/31/2020Thrombocytopenia, unspecified 11/20/2019Other general symptoms and signs10/28/2019Urinary tract infection, site not kmkmidipf43/18/5488Bryrphkvmdxw38/28/2020SVT (supraventricular tachycardia)08/26/2019Antiphospholipid antibody bheretuf55/09/2020Other bacterial infections of unspecified site06/27/2019Less than 8 weeks gestation of wakucupkm58/06/2020Encounter for supervision of normal , unspecified, first mjepnyrlp87/30/8554Htjevbttynle66/17/2020Cerebral infarction, unspecified 05/16/2019Paresthesia of skin05/16/2019Deficiency of other specified B group kdagllqx96/17/2020Hypothyroidism, mkyiodofvat61/17/2020Unspecified condition associated with female genital organs and menstrual cycle05/09/2019Vomiting of , inwqbjacyfv83/06/2020Other specified noninflammatory disorders of obvmly6902/21/2019Frequency of hejpralmarh70/23/2019Unspecified ovarian cyst, right side02/06/2019Coagulation defect, fjbsevyfsiw18/09/2019Cervicalgia 02/05/2019Long term (current) use of 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/hgiefcuoaikwr95/09/2019 Dizziness and nitcwgxvb73/09/2019Other acute postprocedural pain02/03/2019Pelvic and perineal pain02/01/2019Syncope and /04/2019Anticardiolipin antibody tdwepouq07/29/2018Migraine without aura and without status migrainosus, not iebhbrdokeb04/16/2018Antiphospholipid antibody /14/2018Pain in joint12/29/20165378Ahvdzer89/01/2017Idiopathic progressive vhweyozluo96/01/2017 Resolved Problems ProblemNoted DateDiagnosed DateResolved AlzeNqbqs69/ Encounters DateTypeDepartmentCare FgczOaixmpqnuvh93/24/2025 2:30 PM EDTOffice Visit [facility] [address] [place] [address] [place] [phone] Peng Osorio MD Antiphospholipid antibody syndrome (Primary [...] InformationValueDate RecordedSex Assigned at BirthNot on fileLegal XkoTtrdtk42/14/2017 2:04 PM EDT Gender IdentityNot on fileSexual OrientationNot on file Last Filed Vital Signs Vital SignReadingTime TakenCommentsBlood Ygfzrqaq231/6409 2:40 PM EDT Xclwf010901/21/2025 2:40 PM GACNrnzinsnlrr16.2 ??C (97.2 ??F)02/09/2022 11:22 AM EDTRespiratory Igjg1078 11:22 AM EDTOxygen Ifheoojnbx28%10/04/2020 2:01 PM EDTInhaled Oxygen Concentration--Myqtvl57.8 kg (209 lb)01/21/2025 2:40 PM EDT Lxfijl437.6 cm (5' 6 )02/09/2022 11:22 AM EDTBody Mass Index33.7302/09/2022 11:22 AM EDT Plan of Treatment DateTypeDepartmentCare Team (Latest Contact Info)Itzuywanjfv60/25/2026 1:45 PM EDTOffice Visit [facility] [address] [place] [address] [place] [phone] Peng Osorio MD [address] [place] [address] [place] [id number] [phone] [address] FUPHealth MaintenanceDue DateLast DoneCommentsDepression Tpfxxb3210/21/1997 Varicella vaccine (1 of 2 - 13+ 2-dose series)1998Hepatitis C screen 10/22/2003Hepatitis B vaccine (1 of 3 - 19+ 3-dose series)2004Pap smear 2006Cervical cancer mbmvbh6410/22/2015HPV (without or with Pap)10/22/2015 DTaP/Tdap/Td vaccine (2 [...] Procedure NamePriorityDate/TimeAssociated DiagnosisCommentsHIV-1,-2 W/REFLEX TO HIV-1 WESTERN QHLILonajvl29/01/2017 11:49 AM EDT Arthralgia, unspecified joint Fatigue, unspecified type Sensation disorder from Last 3 Months or Most Recently Relevant to Health Maintenance Results * Hiv-1,-2 W/Reflex To Hiv-1 Western Blot (12/29/2016 11:49 AM EDT)Component ValueRef RangeTest MethodAnalysis TimePerformed AtPathologist Signature HIV-1/HIV-2 QwIcnfeushBndflfqd16/03/2017 12:03 AM [facility] Comment: Based on the non-reactive anti-HIV (BRENDEN) screen, the HIV Western blot is not indicated and therefore not performed. INTERPRETIVE INFORMATION: HIV-1,-2 w/Reflex to HIV-1 Western Blot This assay should not be used for blood donor screening, associated re-entry protocols, or for screening Human Cells, Tissues and Cellular and Tissue-Based Products (HCT/P). Performed by [employer], [facility] [place] [address] [email or web address] Bledsoe MD - Lab. Director Specimen (Source)Anatomical Location / LateralityCollection Method / Volume Collection TimeReceived TimeBLOOD SPECIMEN / Xofhwcb2112/29/2016 11:49 AM EDT 12/29/2016 1:50 PM EDT Narrative Authorizing ProviderResult TypeResult StatusRitiki Monroe MDHEMATOLOGY ORDERABLES Final ResultPerforming OrganizationAddressCity/State/ZIP CodePhone Number [facility] [address] [place] [address], [facility] [phone] from Last 3 Months or Most Recently Relevant to Health Maintenance Insurance Care Teams Team MemberRelationshipSpecialtyStart DateEnd Date Evans Casas DO [address] [place] [address] PCP - GeneralFamily Medicine10/04/20
--- OUTSIDE RECORDS SUMMARY | 2025-03-19 19:14 | XMS_ITS | CCD ---
Author Organization [facility] Care Team Providers Care Associate Financial Advisor Name Role Phone CROW MONGE Unavailable Unavailable BIBI CHRISTY Unavailable Unavailable ERIKA LONDON Attending Unavailab ERIKA Haddad Referring Unavailab Haseeb Chavez Attending Unavailable Crow Monge Referring Unavailable Humaira Gaviria MD Primary Care Provider [phone] Jonny Wilcox MD Unavailable Penelope CASAS Primary Care Physician Cheri Norwood Unavailable Unavailable Cosmo Elliott MD Unavailable Lauro RN, Davida Unavailable Penelope Casas Primary Care Provider PENELOPE CASAS Primary Care Unavailable PERVÍCTOR, FALGUNI C Referring Unavailable Humaira Gaviria MD Primary Care Provider [phone] Jonny Wilcox MD Unavailable Cosmo Elliott MD R Unavailable Lauro RN, Davida Unavailable Penelope Casas DO Primary Care Provider [phone] Jonny Wilcox MD P Unavailable [phone] Cosmo Elliott MD R Unavailable Lauro [...] Unavailable MONTEZ, DR ROQUE Primary Care Unavailable [place], DR ANGIE [employer] Unavailable MONTEZ, DR [...] Jonny Tsai Unavailable Lauro RN, Davida Unavailable [phone] Penelope Casas DO Primary Care Provider [...] Care Provider Wilton Herrmann DO Attending Provider [phone] Montez, Wilton Attending Unavailable Montez, Wilton Admitting [...] of OnsetReaction(s) Facility (20 sources)Ciprofloxacin; Translations: [ciprofloxacin]Drug Qyijjwj60-61-2858 Other: See Comments, Unknown, Numbness and tingling sensation of skin (finding), Nausea (finding), Other (See Comments), GI intolerance, [facility]iness[facility] Work Phone: (20 sources)Ciprofloxacin / fluocinolone; Translations: [CIPROFLOXACIN-FLUOCINOLONE]Drug Qxtkywu35-51-5703Emrnw: See CommentsHolmes County [facility] (20 sources)cow milk allergenic extract; Translations: [MILK]Drug Allergy 63-19-9131Smdrs: See [facility] Work Phone: (20 sources)Lactalbumin; Translations: [LACTALBUMIN]Drug Outzetb66-74-3872 Unknown, GI Upset, Other (See Comments)[facility] (20 sources)Lactose; Translations: [LACTOSE]Drug Iajfriy86-70-4708JZ Upset, GI DisturbanceHol[facility] County [facility] (20 sources)MilkDrug Gvlkqxf08-50-8984Vwkyu: See Comments, Other (See Comments) [facility] (6 sources)PenicillinsDrug Akuvvds80-57-1975GbxodtvZxwybnnko Clinic (20 sources)Seasonal allergy; Translations: [SEASONAL ALLERGIES]Allergy to pwvjrehxl59-37-2682AK Upset, Other: See [facility] Work Phone: (20 sources)Milk Products; Translations: [Milk Products]Drug allergyIllness (finding)[facility] (20 sources)Ciprofloxacin / fluocinoloneDrug Mrwgabt13-19-2773Wqhcq (See Comments)[employer] Work Phone: (1 source)Seasonal allergyPropensity to adverse reactions to lytrxktkn50-08-8944 Other (See Comments)[employer] Work Phone: (1 source)Milk-Related CompoundsPropensity to adverse reactions to drug 18-62-7227Zfnqf (See Comments)[employer] Work Phone: (2 sources)PenicillinsDrug Ohmkzrx53-98-5619QiywbpeAztdzibef Clinic (1 source)CiprofloxacinDrug Agvpbod66-02-5270[facility]qiNew[facility] (20 sources)Lactose (non-medical use)Propensity to adverse baofcdetx59-40-3945 [facility] (20 sources)Lactose (non-medical use)Drug Qymwkqn89-47-0968[facility] (20 sources)OctacosanolDrug Dwpztxfprdh79-56-6692PLKN [facility] (20 sources)OtherAllergy to pdubbbvvb74-12-5964TvdewGGVA [facility] Work Phone: (3 sources)MILK CONTAINING PRODUCTS (DAIRY); Translations: [MILK CONTAINING PRODUCTS (DAIRY)]Propensity to adverse reactions to drug (disorder)05-25-2017 [facility] Medications Current Medications MedicationDrug Class(es)DatesSig (Normalized)Sig (Original)acetaminophen 300 mg / codeine phosphate 30 mg oral tablet (1 source)Opioid AgonistStart: 60-27-5904yrcbqegsuvcbk-codeine (TYLENOL #3) 300- 30 MG per tabletAlbuterol (Eqv-ProAir HFA) 90 mcg/inh inhalation aerosol (6 sources)Start: 38-53-2341ibcd 2 puff(s) by inhalation every six hours Albuterol (Eqv-ProAir HFA) 90 mcg/inh inhalation aerosol 2 puff(s), Inhalation, q6hr, 1 EA, Refill(s) 5, [facility], 168, cm, 02/02/24 14:43:00 EDT, Height/Length Dosing, 101.1, kg, 02/02/24 14:43:00 EDT, Weight Dosing Start Date: 02/02/24 Status: Orderedazithromycin 250 mg oral tablet (20 sources)Macrolide AntimicrobialStart: 09-08-2024 End: 10-92-0344rrvaakpfbrxv (Zithromax Z-Ojnny) 250 MG tablet Indications: 5 weeks gestation of ([facility]) As directed 6 tablet 09/08/2024 10/30/2024 Discontinued (Therapy completed)Start: 06-19-2024 End: 00-25-2693Ctxofaukq 250 mg Tab = 1 packet(s), Oral, As Directed, as directed on package labeling, X 5 day(s),# 6 tab(s), Refills(s) 1, Pharmacy: [facility], 168, cm, 06/09/24 14:03:00 EST, Height/Length Dosing, 98.4, kg, 06/19/24 16:19:00 EST, Weight Dosing Start Date: 06/19/24 Stop Date: 06/29/24 Status: OrderedStart: 04-21-2024 End: 24-76-3780ehodlntrbens (Zithromax Z-Jonny) 250 MG tablet Indications: Upper respiratory tract infection, unspecified type As directed 6 tablet 04/21/2024 05/06/2024 Discontinuedazithromycin 250 mg Tab 5-day Dose Pack (Z-Jonny) (2 sources)Start: 02-02-2024 End: 72-65-5165sdpmhnymrhgk 250 mg Tab 5-day Dose Pack (Z-Jonny) = 1 packet(s), Oral, As Directed, as directed on package labeling, X 5 day(s), # 6 tab(s), Refills(s) 0, Pharmacy: [facility], 168, cm, 02/02/24 14:43:00 EDT, Height/Length Dosing, 101.1, kg, 02/02/24 14:43:00 EDT, Weight Dosing Start Date:02/02/24 Stop Date: 02/07/24 Status: OrderedBlood Glucose Monitoring Suppl (D-Care Glucometer) w/Device kit (20 sources)Start: 10-30-2024 End: 80-86-5596Kqhjh Glucose Monitoring Suppl (D-Care Glucometer) w/Device kit Indications: Second trimester ([facility]) , 13 weeks gestation of ([facility]) , Multigravida of advanced maternal age in second trimester ([facility]) , Gestational diabetes mellitus (GDM), antepartum, gestational diabetesmethod of control unspecified ([facility]) , Elevated glucose tolerance test 1 kit Daily Use four times daily to check FSBS. In the morning prior to breakfast & 1 hour after each meal for a total pb3slpmv daily. 1 kit 10/30/2024 10/30/2025 Activeblood-glucose meter (BLOOD GLUCOSE MONITORING) kit (20 sources)blood-glucose meter (BLOOD GLUCOSE MONITORING) kit 1 each by other route in the morning. Use to check blood sugar 4 times daily . Activeblood- glucose sensor (FREESTYLE JENIFER 3 PLUS SENSOR) device (13 sources)Start: 54-26-1548lczh 2 doses by mouth onceblood-glucose sensor (FREESTYLE JENIFER 3 PLUS SENSOR) device Indications: Gestational diabetes mellit us (GDM) in second trimester controlled on oral hypoglycemic drug Wear for 15 days and change 2 each 6 12/26/2024 Activecephalexin 500 mg oral tablet (20 sources)Cephalosporin AntibacterialStart: 08-19-2021 End: 06-68-6855ntsl 1 tablet by mouth twice dailycephalexin 500 mg oral tablet 500 mg = 1 tab(s), Oral, BID, X 10 day(s), # 20 tab(s), Refills(s) 0,Pharmacy: [facility], 168, cm, 08/19/21 10:50:00 [...] suspension (2 sources)Corticosteroid, Quinolone AntimicrobialStart: 10-23-2023 End: 45-36-4060Aqerdmzl 0.3%-0.1% Susp-Otic 4 drop(s), Otic, BID for 7 day(s), 7.5 mL, Refill(s) 0, [id number], 168, cm, 10/23/23 16:55:00 EDT, Height/Length Dosing, 106.2, kg, 10/23/23 16:55:00 EDT, WeightDosing Start Date: 10/23/23 Stop Date: 10/30/23 Status: OrderedStart: 02-15-2023 End: 82-40-9980Ouqzbfqx 0.3%-0.1% Susp-Otic 4 drop(s), Otic, BID for 7 day(s), 7.5 mL, Refill(s) 0, Only use if drainage or pain of ear shake well before using, [facility], 168, cm, 02/15/23 9:49:00 [...] (20 sources)Low Molecular Weight HeparinStart: 01-19-2025 End: 43-43-9246Dqmdbqzsnr Sodium (Lovenox) 40 MG/0.4ML solution prefilled syringe Indications: Anticoagulant long-term use , Antiphospholipid antibody positive , Antiphospholipid antibody syndrome ([facility]) Inject 40 mg as directed Daily for 30 doses 12 mL 3 01/19/2025 02/18/2025 ActiveStart: 01-09-2025 End: 74-08-9996wjeemo 0.4 mL by subcutaneous injection onceenoxaparin (LOVENOX) 40 mg/0.4 mL syringe Indications: Antiphospholipid syndrome Inject 0.4 mL (40 mg total) under the skin Every 12 (twelve) hours. 24 mL 6 01/13/2025 ActiveStart: 05-03-2023 End: 20-14-8044welzhcghhl (LOVENOX) 40 mg/0.4 mL Indications: Primary hypercoagulable state (HCC) , CVA, old, speech/language deficit , Cerebral hyponatremia INJECT 1 SYRINGE SUBCUTANEOUSLY EVERY 24 HOURS 90 mL 10/29/2024 ActiveStart: 04-06-2022 End: 01-05-3820aelgmtjwqq (LOVENOX) 40 mg/0.4 mL Indications: Primary hypercoagulable state (HCC) , CVA, old, speech/language deficit , Cerebral hyponatremia INJECT THE CONTENTS OF ONE SYRINGE (0.4 ML) SUBCUTANEOUSLY EVERY 24 HOURS 90 mL 2 09/28/2022 ActiveStart: 09-06-2021 End: 65-06-4726pnsfie 0.8 mL by subcutaneous injection twice dailyenoxaparin (LOVENOX) 80 mg/0.8 mL Indications: Primary hypercoagulable state (HCC) Inject 0.8 mL subcutaneously twice daily. 48 mL 5 09/06/2021 10/06/2021 ActiveStart: 04-07-2020 End: 50-58-2640qyxkll 0.4 mL by subcutaneous injection every twenty-four hours enoxaparin (LOVENOX) 40 mg/0.4 mL Indications: Primary hypercoagulable state (HCC) , CVA, old, speech/language deficit , Cerebral hyponatremia Inject 0.4 mL subcutaneously every 24 hours. 36 mL 0 12/30/2021 03/30/2022 Active End: 09-22-2766agyhhr 40 mg by subcutaneous injection in the [...] enoxaparin (LOVENOX) 40 MG/0.4ML injection (1 source)Start: 36-85-5812yqiyqqtxox (LOVENOX) 40 MG/0.4ML injection Inject 0.4 mLs into the skin daily 16 mL 1 02/20/2020 Activeenoxaparin (Lovenox) 40 MG/0.4ML injection (20 sources)enoxaparin (Lovenox) 40 MG/0.4ML injection 1 (one) time each day at the same time Activefamotidine 40 mg oral tablet (20 sources)Histamine-2 Receptor AntagonistStart: 37-70-3391aqkm 1 tablet by mouth once daily at bedtimePepcid 40 mg Tab 40 mg = 1 tab(s), Oral, Once a day (at bedtime), # 90 tab(s), Refills(s) 4, Pharmacy: [facility], 168, cm, 06/30/24 8:36:00 EST, Height/Length Dosing, 97.2, kg, 06/30/24 8:36:00 EST, Weight Dosing Start Date: 06/30/24 Status: Ordered Quantity: 90.0 Unit: tab(s) Repeat number: 5Start: 11-29-2023 End: 54-29-6833fiyl 1 tablet by mouth once dailyfamotidine (PEPCID) 20 mg tablet Take 1 tablet by mouth once daily. To take prior to infusion 1 tablet 11/29/2023 10/28/2024 Discontinued (Discontinued by Patient)Start: 11-29-2023 End: 29-32-4808plogfcdfvq 20 mg injection (PEPCID)fluconazole 150 mg oral tablet (6 sources)Azole AntifungalStart: 01-44-5760Grqsrqnp 150 mg Tab 150 mg = 1 tab(s), Oral, q7day, # 4 tab(s), Refills(s) 1, Pharmacy: [facility], 168, cm, 06/09/24 14:03:00 EST, Height/Length Dosing, 98.4, kg, 06/19/24 16:19:00 EST, Weight Dosing Start Date: 06/19/24 Status: Ordered Quantity: 4.0 Unit: tab(s) Repeat number: 2 Indication: Candidiasis, unspecifiedfluticasone propionate 0.05 mg/actuat metered dose nasal spray (20 sources)CorticosteroidStart: 11-20-2024 End: 53-97-2407ybde 1 spray(s) nasal route once dailyfluticasone (Flonase) 50 MCG/ACT nasal spray Indications: Sinus headache Administer 1 spray into each nostril Daily Shake gently. Before first use, prime pump. After use, clean tip and replace cap. 16 g 3 11/20/2024 11/20/2025 ActiveStart: 45-61-4197Swobikb 0.05 mg/inh Beltrami 2 spray(s), Nasal, Daily, 16 gram, Refill(s) 11, each nostril, [id number], 168, cm, 06/09/24 14:03:00 EST, Height/Length Dosing, 99.1, kg, 06/09/24 14:03:00 EST, Weight Dosing Start Date: 06/09/24 Status: Ordered Quantity: 16.0 Unit: g Repeat number: 12Start: 65-53-8430Dagjafh 0.05 mg/inh Beltrami 2 spray(s), Nasal, Daily, 16 gram, Refill(s) 11, each nostril, [id number], 168, cm, 06/09/24 14:03:00 EST, Height/Length Dosing, 99.1, kg, 06/09/24 14:03:00 EST, Weight Dosing Start Date: 06/09/24 Status: OrderedStart: 39-90-9359Hjkwgjt 0.05 mg/inh Beltrami 2 spray(s), Nasal, Daily, 16 gram, Refill(s) 0, each nostril Start Date: 08/03/23 Status: Orderedisopropyl alcohol 0.7 ml/ml medicated pad (20 sources)Start: 21-76-0379Rogkmxf Swabs (Alcohol Prep Pad) 70 % pads Indications: Second trimester ([facility]) , 13 weeks gestation of ([facility]) , Multigravida of advanced maternal age in second trimester ([facility]) , Gestational diabetes mellitus (GDM), antepartum, gestational diabetes method of control unspecified ([facility]) , Elevated glucose tolerance test Apply 1 Pad topically Daily Use four times daily to check FSBS. 150 each 3 10/30/2024 Activelevothyroxine sodium 0.025 mg oral tablet (20 sources)l-ThyroxineStart: 84-08-9952ttsrdqwdkuqtn 25 mcg (0.025 mg) Tab 25 mcg = 1 tab(s), Oral, Daily, Dr. Celaya, # 30 tab(s), Refills(s) 0 Start Date: 06/09/24 Status: Ordered Quantity: 30.0 Unit: tab(s) Repeat number: 1Start: 06-02-2024 End: 50-21-8057vvic 1 tablet by mouth before mealtimelevothyroxine (Synthroid) 50 MCG tablet Indications: History of thyroid disease Take 1 tablet (50 mcg) by mouth in the morning. Take before meals. 30 tablet 11 06/02/2024 06/23/2024 DiscontinuedStart: 02-25-2024 End: 46-61-1116uulk 1 tablet by mouth before mealtimelevothyroxine (Synthroid) 25 MCG tablet Indications: Abnormal TSH Take 1 tablet (25 mcg) by mouth in the morning. Take before meals. 30 tablet 11 06/23/2024 06/23/2025 ActiveStart: 08-24-2021 End: 10-86-0705tkgzfgfvscyce (SYNTHROID) 25 mcg tablet Take 25 mcg by mouth. 0 08/24/2021 09/26/2023 Discontinued End: 62-28-8239uhub 3 tablets by mouth once dailylevothyroxine (Synthroid) 25 MCG tablet Take 75 mcg by mouth 1 (one) time each day at the same time05/06/2024 DiscontinuedComment on above:Take 25 mcg by mouth.Lovenox 40 mg/0.4 mL Injection (20 sources)Start: 20-06-1188ygjnyj 40 mg by subcutaneous injection every twenty-four hoursLovenox 40 mg/0.4 mL Injection 40 mg, SubCutaneous, q24hr, # 7 EA, Refills(s) 0, Blood Thinner Start Date: 04/07/20 Status: Ordered Quantity: 7.0 Unit: EA Repeat number: 1Start: 78-44-8545vdfwci 40 mg by subcutaneous injection every twenty-four hoursLovenox 40 mg/0.4 mL Injection 40 mg, SubCutaneous, q24hr, # 7 EA, Refills(s) 0, Blood Thinner Start Date: 04/07/20 Status: Tgekipt47 hr metFORMIN hydrochloride 500 mg extended release oral tablet (20 sources)BiguanideStart: 40-28-2436jobSQDEQM XR (GLUCOPHAGE XR) 500 mg 24 hr tablet Take 500 AM and 1000 mg at night. 90 tablet 4 03/11/2025 ActiveStart: 01-19-2025 End: 88-44-1462nnut 3 tablets by mouth every twenty-four hours at mealtime metFORMIN XR (Glucophage-XR) 500 MG 24 hr tablet Indications: Gestational diabetes mellitus (GDM), antepartum, gestational diabetes method of control unspecified ([facility]) Take 3 tablets (1,500 mg) by mouth in the evening. Take with meals Do not crush, chew, or split. 90 tablet 3 01/19/2025 ActiveStart: 01-01-2025 End: 75-40-0950pfeQQMEKP XR (GLUCOPHAGE XR) 500 mg 24 hr tablet Take 1500 mg at night. 90 tablet 4 01/01/2025 03/11/2025 DiscontinuedStart: 12-17-2024 End: 11-59-1697nlfXEJYIN XR (GLUCOPHAGE XR) 500 mg 24 hr tablet Take 1000 mg at night. 90 tablet 4 12/17/2024 01/01/2025 DiscontinuedStart: 05-13-2024 End: 53-90-9863ptep 2 tablets by mouth every twenty-four hours at mealtime metFORMIN XR (Glucophage-XR) 500 MG 24 hr tablet Indications: Insulin resistance Take 2 tablets (1,000 mg) by mouth in the evening. Take with meals Do not crush, chew, or split. 60 tablet 11 05/13/2024 06/02/2024 DiscontinuedStart: 11-27-2023 End: 13-50-9116xnle 1 tablet by mouth once dailymetFORMIN XR (Glucophage-XR) 500 MG 24 hr tablet Indications: Insulin resistance Take 1 tablet (500mg) by mouth 1 (one) time each day at the same time 30 tablet 11 09/18/2024 01/19/2025 DiscontinuedStart: 80-45-9125KtcNAZLJW (Eqv-Glucophage XR) 500 mg oral tablet, extended release 1,000 mg = 2 tab(s), Oral, Daily, Refills(s) 0 Start Date: 10/20/22 Status: Ordered Repeat number: 1Start: 03-26-2022 End: 91-34-4083dgeQVZYUE XR (GLUCOPHAGE XR) 500 mg 24 hr [...] tablet by mouth once daily.polyethylene glycol 3350 11980 mg powder for oral solution (20 sources)Osmotic Laxativepolyethylene glycol (GLYCOLAX) 17 gram packet Take 17 g by mouth in the morning. ActivePolyethylene Glycols (4 sources)polyethylene glycol 3350 (MIRALAX PO) Take by mouth. ActivePRENATAL 19 29 mg iron- 1 mg tablet,chewable (20 sources)Start: 22-38-0516DJDPDROH 19 29 mg iron- 1 mg tablet,chewable Chew 1 tablet and swallow in the morning. 6 10/31/2018ActiveStart: 48-56-7845RVPLDRPI 19 29 mg iron- 1 mg tablet,chewable Chew 1 tablet and swallow daily. 6 10/31/2018 ActivePrenatal Vit-Fe Fumarate-FA ( PO) (1 source)Start: 78-65-6075Jplwvzvh Vit-Fe Fumarate-FA ( PO) Take 1 tablet by mouth 0 10/31/2018 Activeprogesterone 200 mg oral capsule (20 sources)Progesteronetake 1 capsule by mouth in the morningprogesterone (PROMETRIUM) 200 mg capsule Take 1 capsule (200 mg total) by mouth in the morning. ActiveProgesterone 200 MG suppository (6 sources)Start: 09-18-2024 End: 29-52-1837Ltstfahptvwi 200 MG suppository Indications: History of miscarriage Insert 200 mg into the vagina at bedtime Insert suppository vaginally every night at bedtime until 12 weeks gestation 30 suppository 3 09/18/2024 10/30/2024 Discontinued (Therapy completed)Start: 09-18-2024 End: 71-52-0159Nymhedriwzfn 200 MG suppository Indications: History of miscarriage Insert 200 mg into the vagina at bedtime Insert suppository vaginally every night at bedtime until 12 weeks gestation 30 suppository 3 09/18/2024 12/17/2024 ActiveStart: 09-01-2024 End: 40-53-2436Xbuzyfjepgmc 200 MG suppository Indications: History of miscarriage Insert 200 mg into the vagina at bedtime Insert suppository vaginally every night at bedtime until 12 weeks gestation 30 suppository 2 09/01/2024 11/30/2024 Activeprogesterone vaginal suppository 200 mg (CPD) (4 sources)progesterone vaginal suppository 200 mg (CPD) Use 200 mg vaginally. Unwrap and insert as directed. Activeterconazole 4 mg/ml vaginal cream (3 sources)Azole AntifungalStart: 06-23-2024 End: 67-58-7128jgnfoxlytaw (Terazol 7) 0.4 % vaginal cream Indications: Vaginal discharge Insert 1 applicator intothe vagina at bedtime for 7 days 45 g 06/23/2024 06/30/2024 ActiveVentolin HFA 90 mcg/inh Aerosol-Adpt (1 source)Start: 09-07-2024 End: 96-68-3630tewy 2 puff(s) by inhalation every six hours for wheezingVentolin HFA 90 mcg/inh Aerosol-Adpt 2 puff(s), Inhalation, q6hr for wheezing for 7 day(s), 8 gm, Refill(s) 0, [facility], 167, cm, 09/07/24 10:01:00 EDT, Height/Length Dosing, 96.4, kg, 09/07/24 10:01:00 EDT, Weight Dosing Start Date: 09/07/24 Stop Date: 09/14/24 Status: Ordered Quantity:8.0 Unit: g Repeat number: 1 Indication: Acute upper respiratory infection, unspecifiedVitamin D (20 sources)Start: 15-32-2838Vrckgzs D 2,000 International_Unit, Oral, qWeek, Refills(s) 0 Start Date: 08/03/23 Status: Ordered Repeat number: 1Start: 85-08-4632Tzwyeeo D 2,000 International_Unit, Oral, qWeek, Refills(s) 0 Start Date: 08/03/23 Status: Ordered Completed/Discontinued Medications MedicationDrug Class(es)DatesSig (Normalized)Sig (Original)aspirin 81 mg chewable tablet (5 sources)Platelet Aggregation Inhibitor, Nonsteroidal Anti-inflammatory Drug End: 49-88-1071dmiwzpc 81 MG chewable tablet Chew 81 mg in the morning. 05/06/2024 Discontinued1 ml dexamethasone phosphate 4 mg/ml injection (1 source)CorticosteroidStart: 11-29-2023 End: 28-08-5584gfhRWPHMdxpnz sodium phosphate 8 mg injection (DECADRON)3 ml insulin glargine 100 unt/ml pen injector (6 sources)Insulin AnalogStart: 12-03-2024 End: 50-83-4985nvvuphc glargine (LANTUS SOLOSTAR U-100 INSULIN) 100 unit/mL (3 mL) insulin pen Prime with 2 units then inject 4 units SQ into abd 15 mL 3 12/03/2024 12/17/2024 Discontinued (Allergic response)insulin isophane, human 100 unt/ml injectable suspension (10 sources)Start: 12-26-2024 End: 86-69-8190lbhu 8 [IU] by mouth once dailyinsulin NPH (HumuLIN N,NovoLIN N) 100 unit/mL injection Indications: Gestational diabetes mellitus (GDM) in second trimester controlled on oral hypoglycemic drug Inj sbq in abd 8 units nightly 10 mL 6 12/26/2024 02/06/2025 Discontinued (Patient Never Started This Medication)iron sucrose 300 mg in NaCl 0.9% 250 mL (VENOFER) (3 sources)Start: 11-29-2023 End: 89-32-5455oegm sucrose 300 mg in NaCl 0.9% 250 mL (VENOFER)Start: 11-22-2023 End: 53-16-1745pgnu sucrose 300 mg in NaCl 0.9% 250 mL (VENOFER)Start: 11-15-2023 End: 17-76-8113myua sucrose 300 mg in NaCl 0.9% 250 mL (VENOFER)multivitamin (MULTIPLE VITAMINS) tablet (7 sources)take 1 tablet by mouth once dailymultivitamin (MULTIPLE VITAMINS) tablet Take 1 tablet by mouth once daily. 0 ActiveComment on above:Take 1 tablet by mouth once daily.ondansetron 4 mg disintegrating oral tablet (4 sources)Serotonin-3 Receptor AntagonistStart: 04-14-2024 End: 58-35-9444lxqn 1 tablet by mouth every six hours for nauseaondansetron ODT (Zofran-ODT) 4 MG disintegrating tablet Indications: Nausea and vomiting in Take 1 tablet (4 mg) by mouth every 6 (six) hours if needed for nausea or vomiting 30 tablet 2 04/14/2024 05/06/2024 DiscontinuedStart: 03-07-2024 End: 87-59-4175axxq 1 tablet by mouth every six hours as needed for nausea and vomiting and nausea and nauseaondansetron ODT (Zofran-ODT) 4 MG disintegrating tablet Indications: Nausea Take 1 tablet (4 mg) bymouth every 6 (six) hours if needed for nausea or vomiting 30 tablet 2 03/07/2024 04/06/2024 Active polysaccharide iron complex 391 mg oral capsule (20 sources)Start: 03-06-2022 End: 66-42-7211CHW FE 180 mg iron cap Problems Active Problems Problem ClassificationProblemDateDocumented DateEpisodic/ChronicAcute cerebrovascular disease (20 sources)Cerebral infarction; Translations: [Cerebral infarction, unspecified]Onset: 05-16-2019 Resolved: [id number] disorders (20 sources)Anxiety; Translations: [Anxiety disorder, unspecified]Onset: [id number] dysrhythmias (20 sources)Supraventricular tachycardia; Translations: [Supraventricular tachycardia]Onset: 130453-55-2490AutmddqQacxetmfogr and hemorrhagic disorders (20 sources)Antiphospholipid syndrome; Translations: [Hypercoagulability state] Onset: [id number]q and other anemia (20 sources)Iron 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; Translations: [Iron deficiency anemia secondary to blood loss (chronic)]Onset: 74-62-5647Lnrinyc Deficiency and other anemia (1 source)Iron deficiency anemia secondary to blood loss (chronic); Translations: [Iron deficiency anemia secondary to blood loss (chronic)]Onset: 39-87-2019AhyzbduZykvsqlw or abnormal glucose tolerance complicating ; childbirth; or the puerperium (20 sources)Gestational diabetes mellitus in , unspecified control; Translations: [Gestational diabetes mellitus in childbirth, unspecified control] Onset: 05-72-9822JbnsbgltDabffuijd of teeth and jaw (11 sources)Temporomandibular cjwab-dfqk-xqasxfidwze syndrome; Translations: [Arthralgia of temporomandibular joint]Onset: 303371-77-9398Okttyius Esophageal disorders (20 sources)Laryngopharyngeal reflux; Translations: [Gastro-esophageal reflux disease without esophagitis]Onset: [id number]; including migraine (2 sources)Sinus headache; Translations: [Sinus headache]49-53-6822MbzorhtzHvqd effects of cerebrovascular disease (20 sources)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; Translations: [Other speechand language deficits following cerebral infarction]Onset: 43-77-3965ArlfmcjWlzupmrzws disorders (1 source)Hormone replacement therapy; Translations: [HORMONE REPLACEMENT THERAPY]Onset: 32-37-2729NorlhijgFlfscrybx disorders (20 sources)Irregular menstruation, unspecified; Translations: [Missed period] Onset: 94-60-2647QfcsbooTspphuxttfezc mental health disorders (20 sources)Psychogenic hyperventilation; Translations: [Other somatoform disorders]Onset: 125315-30-5010ZuocdmxYkojstdd sclerosis (1 source)Multiple sclerosis; Translations: [Multiple sclerosis]Onset: 78-10-8442EyavdtkKbwpqraqoty deficiencies (20 sources)Vitamin D deficiency; Translations: [Vitamin D deficiency, unspecified]Onset: 174523-71-5631CyfbbqeTzvol aftercare (1 source)Other snf (current) drug therapy; Translations: [OTH PENITENTIARY CURRENT DRUG THERAPY]Onset: 56-22-1860ShlkfxxeVsovb aftercare (1 source)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; Translations: [HIGH SCHOOL VICE PRINCIPAL USE ORAL HYPOGLYCEMIC DX]Onset: 47-24-5331TxhykutnSbyoy aftercare (2 sources)H/O: miscarriage; Translations: [Encounter for other specified aftercare]40-37-4586OoilbzzzTmvzc circulatory disease (4 sources)History of cerebrovascular disease; Translations: [Personal history of transient ischemic attack (TIA), and cerebral infarction without residual deficits]Onset: 467195-19-3787GeyupncxLyfgz circulatory disease (3 sources)Personal history of transient ischemic attack (TIA), and cerebral infarction without residual deficits; Translations: [PERS HX TIA AND CI NO RESID DEFICIT]Onset: 37-86-0553UvpdomhsVkrcu circulatory disease (1 source)History of transient ischemic attack; Translations: [Personal history of transient ischemic attack (TIA), and cerebral infarction without residual deficits]20-07-8870TjjznkzhFfocc complications of ; puerperium affecting management of mother (20 sources)Anemia in mother complicating childbirth; Translations: [Anemia complicating childbirth]Onset: 391723-90-9917ByeuipcLgqwt complications of ; puerperium affecting management of mother (1 source)Other diseases of the blood and blood-forming organs and certain disorders involving the immune mechanism complicating childbirth; Translations: [OTH DZ BLD BFO IMMUN COMP CHILDBRTH]Onset: 99-87-3756MtbdymsdFigeh complications of ; puerperium affecting management of mother (1 source)Endocrine, nutritional and metabolic diseases complicating childbirth; Translations: [ENDOCRN NUTR MET DZ COMP CHILDBIRTH]Onset: 14-32-4768Gvxcoock Other complications of ; puerperium affecting management of mother (1 source)Streptococcus B carrier state complicating childbirth; Translations: [STREP B QUIROZ STATE COMP CHILDBIRTH]Onset: 32-05-2309RshlsebvVuztj complications of (20 sources)Iron deficiency anemia of ; Translations: [Anemia complicating , unspecified trimester]Onset: 27-77-1543BgfglzkThkxt complications of (1 source)Endocrine, nutritional and metabolic diseases complicating , third trimester; Translations: [ENDOCRN NUTR MET DZ COMP PG 3RD TRI]Onset: 54-31-5499VddocmauHipdo complications of (5 sources)Supervision of elderly multigravida, third trimester; Translations: [SUP ELDER MULTIGRAVIDA THIRD TRI]Onset: 81-12-1925EioirkqpJyrfl complications of (1 source)Other diseases of the blood and blood-forming organs and certain disorders involving the immune mechanism complicating , third trimester; Translations: [OTH DZ BLD BFO IMMN COMP PG 3RD TRI]Onset: 05-04-2022 EpisodicOther complications of (1 source)Maternal care for excessive growth, third trimester, not applicable or unspecified; Translations: [MAT CARE EXCSS FTL GRTH 3RD TRI UNS] Onset: 70-64-7100KiujyrufHplef complications of (20 sources)History of with abortive outcome; Translations: [Supervision of with other poorreproductive or obstetric history, second trimester]Onset: 493093-22-9676FimnlqtcMrysi complications of (3 sources)Hypothyroidism in ; Translations: [Endocrine, nutritional and metabolic diseases complicating , second trimester]01-02-2025 EpisodicOther ear and sense organ disorders (20 sources)Otitis externa of right ear; Translations: [Unspecified otitis externa, right ear]Onset: 38-35-9214JjjkpqhPcsxj ear and sense organ disorders (7 sources)Otitis mkjzcbu20-20-1728EstrhhpNxwci endocrine disorders (20 sources)Hypoglycemia; Translations: [Hypoglycemia, unspecified]Onset: 087587-50-8460DecoetkWsvaz female genital disorders (2 sources)Vaginal bleeding; Translations: [Abnormal uterine and vaginal bleeding, unspecified]15-61-6835MypusxxRtotq female genital disorders (4 sources)Vaginal discharge; Translations: [Other specified noninflammatory disorders of vagina]39-63-9433VxntlsbjJsknh hematologic conditions (1 source)H/O: blood disorder; Translations: [Personal history of diseases of the blood and blood-forming organs and certain disorders involving the immune mechanism]Onset: 67-95-8025WuijutbxXczil lower respiratory disease (9 sources)Qotbt16-68-5433PxxpthvaMwjsa nervous system disorders (1 source)Idiopathic progressive neuropathy; Translations: [Idiopathic progressive neuropathy]Onset: 55-23-4297LlsgonvZscbi nervous system disorders (20 sources)Neuropathy; Translations: [Idiopathic progressive neuropathy]Onset: 289368-22-9335VqkutxhWalkj nervous system disorders (3 sources)Paresthesia; Translations: [Paresthesia of skin]Onset: 05-16-2019 EpisodicOther nervous system disorders (9 sources)Muscle -82-3485DeqnsfkgIpyit nervous system disorders (6 sources)Facial spwmfuceuqu25-23-6836UpomyypuUdjin nutritional; endocrine; and metabolic disorders (10 sources)Obese class II; Translations: [Body mass index (BMI) 36.0-36.9, adult]Onset: 76-35-2194ElrszieJclng nutritional; endocrine; and metabolic disorders (20 sources)Obesity; Translations: [Other obesity]Onset: 076162-93-2411 ChronicOther nutritional; endocrine; and metabolic disorders (20 sources)Morbid obesity; Translations: [Morbid (severe) obesity due to excess calories]Onset: 66-26-2155ExbvpogOdbck nutritional; endocrine; and metabolic disorders (3 sources)Hypercalcemia; Translations: [Hypercalcemia]18-68-2725YlwuzswQofoh nutritional; endocrine; and metabolic disorders (20 sources)Body mass index 30+ - obesity; Translations: [Body mass index (BMI) 37.0-37.9, adult]Onset: 299073-97-7446SuumikcDqopt nutritional; endocrine; and metabolic disorders (1 source)Obese class I; Translations: [Body mass index (BMI) 34.0-34.9, adult] Onset: 06-87-5616AvxymmfCufpn nutritional; endocrine; and metabolic disorders (1 source)H/O: Disorder; Translations: [Personal history of other endocrine, nutritional and metabolic disease]Onset: 22-02-0503DppmpxcvVuuhr nutritional; endocrine; and metabolic disorders (2 sources)H/O: thyroid disorder; Translations: [Personal history of other endocrine, nutritional and metabolic disease]83-28-9901JezltuzuHgrdw screening for suspected conditions (not mental disorders or infectious disease) (12 sources)Encounter for screening for malignant neoplasm of cervix; Translations: [Encounter for screening for diabetes mellitus]Onset: 10-28-2021 EpisodicOther skin disorders (1 source)Podopompholyx; Translations: [Dyshidrosis [pompholyx]]Onset: 79-04-0042GhbagkjkJhkyt upper respiratory disease (20 sources)Allergy to rbgkua00-92-4291JmqwsnoVpzgk upper respiratory disease (1 source)Polyp of nasal sinus; Translations: [Nasal polyp, unspecified]Onset: 90-36-9610DixmcdweMrehi upper respiratory infections (8 sources)Chronic sinusitis; Translations: [Chronic sinusitis, unspecified] Onset: 39-41-4117GbgmhlkXrqgqexx codes; unclassified (1 source)Sleep disorder; Translations: [Other sleep disorders]Onset: 10-20-2022 ChronicResidual codes; unclassified (20 sources)Obstructive sleep apnea syndrome; Translations: [Obstructive sleep apnea (adult) (pediatric)]Onset: 493616-92-9288FeiivdsNdyfmizt codes; unclassified (8 sources)Patient encounter status; Translations: [Other specified health status]Onset: 10-00-3433DzewazeqJqrvgmyg codes; unclassified (1 source)39 weeks gestation of ; Translations: [39 WEEKS GESTATION OF ]Onset: 10-61-6294VmgrwokrYmxhdckv codes; unclassified (1 source)Family history of diabetes mellitus; Translations: [FAMILY HISTORY OF DIABETES MELLITUS]Onset: 69-63-4253ZxokgedlRvoofswj codes; unclassified (1 source)Family history of stroke; Translations: [FAMILY HISTORY OF STROKE] Onset: 88-98-8730ThgnkyvvAhgjzeoc codes; unclassified (1 source)38 weeks gestation of ; Translations: [38 WEEKS GESTATION OF ]Onset: 28-03-5277DxrcnhwoAkckaagq codes; unclassified (1 source)37 weeks gestation of ; Translations: [37 WEEKS GESTATION OF ]Onset: 35-38-5122AdxkgzfkKpwmcitw codes; unclassified (1 source)35 weeks gestation of ; Translations: [35 WEEKS GESTATION OF ]Onset: 55-86-7405SkfdgjzeQaubpttp codes; unclassified (1 source)34 weeks gestation of ; Translations: [34 WEEKS GESTATION OF ]Onset: 92-12-6480DbpsxdgpKbsfjirn codes; unclassified (1 source)33 weeks gestation of ; Translations: [33 WEEKS GESTATION OF ]Onset: 67-51-8471YnumvixxFbvwamhd codes; unclassified (1 source)32 weeks gestation of ; Translations: [32 WEEKS GESTATION OF ]Onset: 55-45-9841WfmxpjmhWojldnum codes; unclassified (1 source)31 weeks gestation of ; Translations: [31 WEEKS GESTATION OF ]Onset: 64-06-8437AxynomlgJbwthhyd codes; unclassified (20 sources)Sleep ebzckwgg19-11-6485QajvkourIgqymudz codes; unclassified (1 source)Localized edema; Translations: [Localized edema]Onset: 11-09-2023 EpisodicResidual codes; unclassified (2 sources)Gestation period, 14 weeks; Translations: [14 weeks gestation of ]59-72-6646ItdcrndlPnswfyxh codes; unclassified (2 sources)Gestation period, 13 weeks; Translations: [13 weeks gestation of ]45-63-2314UxxrlpqfSjtrmoth codes; unclassified (2 sources)Gestation period, 16 weeks; Translations: [16 weeks gestation of ]00-50-2228PeizksyhJryiukxj codes; unclassified (2 sources)Gestation period, 19 weeks; Translations: [19 weeks gestation of ]29-53-0116RdkutmwlZmbadozb codes; unclassified (3 sources)Gestation period, 22 weeks; Translations: [22 weeks gestation of ]17-32-4408YjhjdrnoTobbpdjs codes; unclassified (3 sources)Family history of autism; Translations: [Family history of other mental and behavioral disorders]37-84-8531TiysqpycSslnrbya codes; unclassified (2 sources)Gestation period, 23 weeks; Translations: [23 weeks gestation of ]46-18-7031OpeghkhwIkruhnzs codes; unclassified (2 sources)Gestation period, 25 weeks; Translations: [25 weeks gestation of ]79-39-3825ZuduypbtLtxcutek codes; unclassified (1 source)Gestation period, 27 weeks; Translations: [27 weeks gestation of ]29-76-9035WslhikoqOlfgsrnu codes; unclassified (1 source)22 weeks gestation of ; Translations: [22 weeks gestation of ]Onset: 06-76-7509RuesiofgNgxthaqt codes; unclassified (2 sources)Gestation period, 28 weeks; Translations: [28 weeks gestation of ]97-52-2342MkkqdgjbTwjbkhfm codes; unclassified (1 source)Gestation period, 29 weeks; Translations: [29 weeks gestation of ]77-96-8518EmkyaqjiPupzcvhr codes; unclassified (2 sources)Gestation period, 30 weeks; Translations: [30 weeks gestation of ]59-72-9833UxndezfxRyrajwj disorders (20 sources)Hypothyroidism; Translations: [Hypothyroidism, unspecified]Onset: 165250-83-0493LbapkbuNbuorgt disorders (20 sources)Disorder of thyroid, unspecified; Translations: [Disorder of thyroid gland]Onset: 150730-43-2209MdritruwTpxhzkkdx cerebral ischemia (1 source)Transient cerebral ischemia; Translations: [Transient cerebral ischemic attack, unspecified]Onset: 924119-58-5268HeradxlHfdzrxditrbt (20 sources)History of OEAW-GnT-799-11-2022Unclassified (20 sources)Inhalation lowmbh17-51-5916Lwhfwllsqlmv (20 sources)Jui-oueeuf72-82qoqpjk59-92-3459Yjdqrmnbtwwr (1 source)CONTACT W/AND (SUSP) EXPOS COVID-19; Translations: [CONTACT W/AND (SUSP) EXPOS COVID-19]Onset: 69-89-7682Shezshwbdfwz (15 sources)Patient encounter -93-4245Ietyatxhxynm (1 source)MFM consultOnset: 83-90-2075Shqmgzwnxyap (1 source)Gestational DiabetesOnset: 20-53-4893Nqxwh infection (20 sources)Viral hhwrecd89-72-6483Elymyzzy Past or Other Problems Problem ClassificationProblemDateDocumented DateEpisodic/ChronicAbdominal pain (20 sources)Abdominal pain; Translations: [Pain in pelvis]Onset: 02-01-2019 47-67-8192NhgqddbmWheie bronchitis (20 sources)Acute infective bronchitis; Translations: [Acute bronchitis due to other specified organisms]Onset: 286123-65-1213WaeqqwuvManza posthemorrhagic anemia (20 sources)Acute posthemorrhagic anemia; Translations: [Acute posthemorrhagic anemia]Onset: 246943-69-1967BjbtvqqeNujchkco reactions (20 sources)Other allergy status, other than to drugs and biological substances; Translations: [Tjgmq-ol-gmuouol vesicular eczema of hands and feet]Onset: 45-69-7839WrtdgaajTifsgpefw infection; unspecified site (20 sources)Bacterial infectious disease; Translations: [Other bacterial infections of unspecified site]Onset: 791065-69-2541LwrmzbiqAoqlslbd of urinary tract (20 sources)History of calculus of kidney; Translations: [Personal history of urinary calculi]Onset: 454697-35-2415NaccjabjYyibiqe dysrhythmias (20 sources)Palpitations; Translations: [Palpitations]Onset: 08-26-2019 73-91-9819HvrntztdNplcwomfnw associated with dizziness or vertigo (20 sources)Dizziness; Translations: [Dizziness and giddiness]Onset: 02-05-2019 87-72-9707WwhewkyoGwmsihgbpc and other anemia (20 sources)Anemia; Translations: [Anemia, unspecified]Onset: 72-11-5070Pdphmeeo Diabetes mellitus without complication (20 sources)Prediabetes; Translations: [Prediabetes]Onset: 71-14-2911Gjranckg Diseases of mouth; excluding dental (20 sources)Xerostomia; Translations: [Dry mouth, unspecified]Onset: 12-22-2022 EpisodicFluid and electrolyte disorders (20 sources)Cerebral hyponatremia; Translations: [Hypo-osmolality and hyponatremia]Onset: 38-27-6418TsvveiopYxxxftxajzcogwmi hemorrhage (20 sources)Hematochezia; Translations: [Blood-tinged feces]Onset: 06-12-2023 35-76-6149HughpnmxQwmuwdxbzcfag symptoms and ill-defined conditions (20 sources)Genitourinary symptoms; Translations: [Unspecified symptoms and signs involving the genitourinary system]Onset: 80-22-6313DdlnyjgjTaapwofl; including migraine (20 sources)Migraine without aura, not refractory ; Translations: [Migraine without aura, not intractable, without status migrainosus]Onset: 09-12-2017 Resolved: 380720-79-7833WpshysrXskgnbgflxzas and screening for infectious disease (20 sources)Antibody studies abnormal; Translations: [Raised antibody titer] Onset: 992072-96-4756EmfntdwyGnqpnxu and fatigue (20 sources)Fatigue; Translations: [Other fatigue]Onset: EpisodicMycoses (20 sources)Candidiasis of vagina Resolved: 192589-80-9502RkjvgbirZvwtnrhzqbi deficiencies (20 sources)Vitamin B deficiency; Translations: [Deficiency of other specified B group vitamins]Onset: 713981-45-8525AfnotkrkIX-vxdkfvj trauma to perineum and vulva (20 sources)First degree perineal tear during delivery - delivered; Translations: [First degree perineal laceration during delivery]Onset: 208867-54-6221BemcrjvlOalez aftercare (20 sources)Long-term current use of anticoagulant; 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]Onset: 213729-70-0167ExpohinuVtytw aftercare (20 sources)Long-term current use of drug therapy; Translations: [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/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]Onset: EpisodicOther circulatory disease (20 sources)History of cerebrovascular accident; Translations: [Personal history of transient ischemic attack (TIA), and cerebral infarction without residual deficits]Onset: 930461-21-9392EetxsnivEaackfb on above:reported by pt - related to antiphospholipid syndromeOther circulatory disease (20 sources)Elevated blood-pressure reading without diagnosis of hypertension; Translations: [Elevated blood-pressure reading, without diagnosis of hypertension]Onset: 687783-65-5534EqngojglWkgyy circulatory disease (20 sources)Elevated blood pressure; Translations: [Elevated blood-pressure reading, without diagnosis of hypertension]Onset: 015314-11-5658Vvyuvwpj Other complications of ; puerperium affecting management of mother (20 sources) problem; Translations: [Unspecified disorders of ]Onset: 788450-32-7049JgqswcelIfabx complications of ; puerperium affecting management of mother (1 source)Endocrine, nutritional and metabolic disease complicating , childbirth and puerperium; Translations: [Endocrine, nutritional and metabolic diseases complicating childbirth]Onset: 776434-71-7398LdrasygfMarfu complications of ; puerperium affecting management of mother (1 source)Complication of , childbirth and/or the puerperium; Translations: [Other diseases of the blood and blood-forming organs and certain disorders involving the immune mechanism complicating childbirth]Onset: 727788-26-1322QbyfgcfyArzjn complications of ; puerperium affecting management of mother (20 sources) hemorrhage; Translations: [Other immediate hemorrhage]Onset: 739446-47-2526SwyfqnhqDwsiz complications of (1 source)Vomiting of ; Translations: [Vomiting of , unspecified]Onset: 569319-47-0911HnzmwmacOtzkl complications of (20 sources)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; Translations: [Maternal care for (suspected) chromosomal abnormality in fetus, not applicable or unspecified]Onset: 154546-11-3954HrbavelnDkqdw complications of (4 sources)Other specified related conditions, third trimester; Translations: [OTH SPEC PREG RELATEDCOND 3RD TRI]Onset: 36-20-9635HghxcdvuYetai complications of (20 sources)Antiphospholipid syndrome; Translations: [Other diseases of the blood and blood-forming organs and certain disorders involving the immune mechanism complicating , unspecified trimester]Onset: 07-07-2019 40-85-6278KyltcswcKmeqb complications of (20 sources)Multigravida of advanced maternal age; Translations: [Supervision of elderly multigravida, second trimester]Onset: 417024-86-4768OnvqtusgGkuez complications of (2 sources)Other diseases of the blood and blood-forming organs and certain disorders involving the immune mechanism complicating , unspecified trimester; Translations: [Other diseases of the blood andblood-forming organs and certain disorders involving the immune mechanism complicating , un specified trimester]Onset: 26-54-3897EkvcynvjJpizl complications of (1 source)Supervision of elderly multigravida, second trimester; Translations: [Supervision of elderly multigravida, second trimester]Onset: 45-10-8653Mrqhkfqd Other ear and sense organ disorders (20 sources)Referred otalgia of right ear; Translations: [Otalgia, right ear] Onset: 620432-88-4183YxybulqiCqiih female genital disorders (20 sources)Noninflammatory disorder of the vagina; Translations: [Other specified noninflammatory disorders ofvagina]Onset: 477268-85-6819Rfvhwwph Other female genital disorders (20 sources)Disorder of female reproductive system; Translations: [Unspecified condition associated with femalegenital organs and menstrual cycle]Onset: 333052-50-5809LbknbajmJaibt female genital disorders (1 source)Other specified noninflammatory disorders of vagina; Translations: [OTH SPEC NONINFLAMMATORY D/O VAGINA]Onset: 12-84-3033EjadtanqCuzrv female genital disorders (14 sources)Pelvic and perineal pain; Translations: [Pelvic and perineal pain] Onset: 492532-22-1520OmdrbnmvJvwpc hematologic conditions (20 sources)H/O: anemia - iron deficient; Translations: [Personal history of diseases of the blood and blood-forming organs and certain disorders involving the immune mechanism]Onset: 432602-83-1893DlboczpwNoyvf infections; including parasitic (20 sources)Personal history of other infectious and parasitic diseases; Translations: [History of COVID-19]Onset: 790674-48-7400CrdblfhyQnvgr inflammatory condition of skin (1 source)Itching of skin; Translations: [Pruritus, unspecified]Onset: 946917-71-1394BwpynwhdTcdbn inflammatory condition of skin (20 sources)Pruritus, unspecified; Translations: [Unspecified pruritic disorder] Onset: 678975-88-4951PxhpczeyWllam injuries and conditions due to external causes (20 sources)Inhalation injury; Translations: [Injury, unspecified, initial encounter]Onset: 278793-55-4674DthtaaeqTvpsk lower respiratory disease (20 sources)Dyspnea; Translations: [Dyspnea, unspecified]Onset: 06-12-2023 74-28-5253OwprwuvfUzbdl lower respiratory disease (20 sources)H/O: asthma; Translations: [Personal history of other diseases of the respiratory system]Onset: 705999-69-1531UmcpydqzJefws lower respiratory disease (20 sources)Snoring; Translations: [Snoring]Onset: 70-84-1205FmfioiapZbafi nervous system disorders (20 sources)Muscle fasciculation; Translations: [Fasciculation]Onset: 08-19-2021 EpisodicOther nervous system disorders (20 sources)Paresthesia of lower extremity; Translations: [Paresthesia of skin] Onset: 325644-35-3476CduzhtpnLpgxs nervous system disorders (20 sources)Acute postoperative pain; Translations: [Other acute postprocedural pain]Onset: 226522-62-0771TbbzgpfnUyfuo non-traumatic joint disorders (20 sources)Joint pain; Translations: [Pain in unspecified joint]Onset: 688197-82-9078XgtjepzxIncoc nutritional; endocrine; and metabolic disorders (20 sources)H/O: hypothyroidism; Translations: [Personal history of other endocrine, nutritional and metabolic disease]Onset: 901289-64-5812Ilhvival Other and delivery including normal (20 sources)Normal ; Translations: [Encounter for supervision of normal , unspecified, first trimester]Onset: 948313-10-2782Qkeeimkf Other skin disorders (20 sources)Ulrmn-wu-odzuvxd vesicular eczema of hands and feet; Translations: [Dyshidrosis [pompholyx]]Onset: 624143-86-8550GrdbwaikXlvjn upper respiratory disease (20 sources)Deviated nasal septum; Translations: [Deviated nasal septum]Onset: 33-85-6162OcddmzspMehuw upper respiratory disease (20 sources)Polyp of nasal cavity and/or nasal sinus; Translations: [Nasal polyp, unspecified]Onset: 516625-48-8430LjwqqtkzUwejl upper respiratory infections (20 sources)Acute upper respiratory infection Resolved: 600812-14-7988HgdtbyluWlbyyr media and related conditions (20 sources)Dysfunction of eustachian tube; Translations: [Disorder of right Eustachian tube]Onset: 081250-79-7623RucsarzqTntbfgb cyst (20 sources)Cyst of ovary; Translations: [Cyst of right ovary]Onset: 02-06-2019 80-00-3843SdlgytaeTlwrehrx codes; unclassified (20 sources)Family history of female genital tract disorder Resolved: 953829-99-5932FhggqbvvBzuobaah codes; unclassified (20 sources)FH: Anemia Resolved: 332286-64-1605WkebdecrBkfwvogg codes; unclassified (20 sources)First trimester ; Translations: [Less than 8 weeks gestation of ]Onset: 763765-67-9364ChofwutmIjmfuxgf codes; unclassified (20 sources)Gestation period, 32 weeks; Translations: [32 weeks gestation of ]Onset: 265122-29-9590UcmowsmbWurhrsvu codes; unclassified (1 source)Gestation period, 33 weeks; Translations: [33 weeks gestation of ]Onset: 475734-63-6854YpnvaosiIygvkaci codes; unclassified (1 source)Gestation period, 34 weeks; Translations: [34 weeks gestation of ]Onset: 814927-21-1897ElrzzwhgJhptzrnb codes; unclassified (1 source)Gestation period, 35 weeks; Translations: [35 weeks gestation of ]Onset: 528120-75-4803FqhedkejMaemossf codes; unclassified (1 source)Gestation period, 36 weeks; Translations: [36 weeks gestation of ]Onset: 002237-53-4411AbemgqxhMnjyamcc codes; unclassified (1 source)Gestation period, 37 weeks; Translations: [37 weeks gestation of ]Onset: 089652-59-2652PrbjzftqKzzggkwb codes; unclassified (1 source)Gestation period, 38 weeks; Translations: [38 weeks gestation of ]Onset: 839440-59-5846PnvppzoyUdhhnjqt codes; unclassified (1 source)Gestation period, 39 weeks; Translations: [39 weeks gestation of ]Onset: 989973-79-1478IuejdkbiNueagrzl codes; unclassified (20 sources)Other general symptoms and signs; Translations: [Other general symptoms]Onset: 327497-38-4512ZmfdpbofKypjyhmw codes; unclassified (1 source)Unspecified blood type, Rh negative; Translations: [UNSPECIFIED BLOOD TYPE RH NEGATIVE]Onset: 82-56-6101YiuoctviSfbgehxx codes; unclassified (1 source)28 weeks gestation of ; Translations: [28 WEEKS GESTATION OF ]Onset: 48-70-1040RulehibtRzwrjhwf codes; unclassified (20 sources)Intolerant of cold; Translations: [Other general symptoms and signs] Onset: 646629-16-0960SmwylkumXicvpdac codes; unclassified (20 sources)Non-smoker; Translations: [Other specified health status]Onset: 821409-25-9172QiocqywgXynulanp codes; unclassified (20 sources)Swelling of salivary gland; Translations: [Localized edema]Onset: 738324-90-5568KoyyfirtFixdqjkwhyh; intervertebral disc disorders; other back problems (20 sources)Neck pain; Translations: [Cervicalgia]Onset: EpisodicSpontaneous (20 sources)Miscarriage Resolved: 769989-87-5589UxcbuyyiTkslhcg (20 sources)Syncope and collapse; Translations: [Syncope and collapse]Onset: 364109-95-8490DpabaztmCdntfzayuaov (20 sources)PregnancyOnset: 02-20-2007 Resolved: 304960-30-0734Xuwpctlkpxai (20 sources)Suspected disease caused by 1533-pAvR33-66yIeR48-03-6200Ugduljooecer (1 source)Exposure to 2019 novel coronavirus; Translations: [Contact with and (suspected) exposure to COVID19]Urinary tract infections (20 sources)Infective urethritis; Translations: [Other urethritis]Onset: 12-62-0619Hnxlnzjt Results Test NameValueInterpretationReference RangeFacilityUS OB BPP W NON-STRESS on 92[place]03[place] [address] Ultrasound Report Signed Patient: SANNA RENDON MR#: [id number] : 1985 Acct:[id number] Age/Sex: 39 / F ADM Date: 03/05/25 Loc: US Attending Dr: Wilton Herrmann D.O. Ordering Physician: Wilton Herrmann D.O. Date of Service: 03/05/25 Procedure(s): US OB BPP w non-stress Accession Number(s): [id number] cc: Wilton Herrmann D.O.; Physician,Non-Staff M.DLazara [facility] [place] [id number] Patient Name: SANNA RENDON MRN: [facility]:[id number] date: 1985 Sex: F Assigned Patient Location: [facility] Current Patient Location: Accession/Order Number: [id number] Exam Date: 03/05/2025 19:15 Report Date: 03/06/2025 [...] Pisano M.D. 03/06/2025 8:10 AM Dictation Location: [place] [address] Electronically authenticated by: [id number] Y Date: 03/06/2025 08:10 Dictated By: Pamela Pisano M.D. Signed By: 03/06/2513 DD/ 9 TD/TT: Podiatry Teacher:ELVERadiology, Radiologist, - 03/06/2025 [place] [address] Ultrasound Report Signed Patient: SANNA RENDON MR#: [id number] : 1985 Acct:[id number] Age/Sex: 39 / F ADM Date: 03/05/25 Loc: US Attending Dr: Wilton Herrmann D.O. Ordering Physician: Wilton Herrmann D.O. Date of Service: 03/05/25 Procedure(s): US OB BPP w non-stress Accession Number(s): [id number] cc: Wilton Herrmann D.O.; Physician,Non-Staff [place] [address] Patient Name: SANNA RENDON MRN: [facility]:[id number] date: 1985 Sex: F Assigned Patient Location: [facility] Current Patient Location: Accession/Order Number: [id number] Exam Date: 03/05/2025 19:15 Report Date: 03/06/2025 08:10 At the request of: IWLTON HERRMANN DO Procedure: US OB BPP w [...] Pisano M.D. 03/06/2025 8:10 AM Dictation Location: [place] [address] Electronically authenticated by: [id number] Y Date: 03/06/2025 08:10 Dictated By: Pamela Pisano M.D. Signed By: 03/06/25812 DD/ 9 TD/TT: Podiatry Teacher: SHILOH HealthcareRadiology Study observation (narrative)[facility] HealthcareUS OB BPP W NON-STRESSOrdered By: Radiologist Radiology on 89-12-7757BSGWSouthPointe Hospital Work Phone: [phone]([place])D3 [facility] [address]434-lwopvtqqyqalmw D3 [Mass/Vol]54.6 ng/oBLvgyyi72.0-80.0[facility] on above: Order Comment: Specimen Type: BLOOD SPECIMENOrdering Facility: [facility] Address:[address] [place], [place] [address]Performed By: #### 1989-3 ####[facility] LABCLIA [id number] [address] Auto Differential panel (Bld)on 03-02-2025 Basophils (Bld) [#/Vol]0.03 10*3/uLNormal<0.11CThe Jewish HospitalComment on above:Order Comment: Specimen Type: BLOOD SPECIMENOrdering Facility: [facility] Address:[address] [place] [address] Performed By: #### 55796-5 ####[facility] LABCLIA [id number] [place], [place] [address]Bietrtron/100 WBC (Bld)0.3 % NormalHolzer Hospital on above:Order Comment: Specimen Type: BLOOD SPECIMENOrdering Facility: [facility] Address:[address] [place], [place] [address]Performed By: #### 32384-1 ####[facility] LABCLIA [id number] [place] [address] Differential cell count method Nom (Bld)AutoNormalCThe Jewish Hospital Comment on above:Order Comment: Specimen Type: BLOOD SPECIMENOrdering Facility: [facility] Address:[address] [place] [address] Performed By: #### 38623-1 ####[facility] LABCLIA [id number] [place], [place] [address]Hewwptmvxhq (Bld) [#/Vol]0.06 10*3/uLNormal<0.46[facility] on above:Order Comment: Specimen Type: BLOOD SPECIMENOrdering Facility: [facility] Address:[address] [place], [place] [address]Performed By: #### 97096-2 ####[facility] LABCLIA [id number] [place], [place] [address]Opzpdywklaw/100 WBC (Bld)0.7 %NormalHolzer Hospital on above:Order Comment: Specimen Type: BLOOD SPECIMENOrdering Facility: [facility] Address:[address] [place], [place] [address]Performed By: #### 15685-6 ####[facility] LABCLIA [id number] [place], [place] [address]Kzsslhzhssc distribution width (RBC) [Ratio]13.3 %Ldgsqz63.5-15.0[facility] on above: Order Comment: Specimen Type: BLOOD SPECIMENOrdering Facility: [facility] Address:[address] [place], [place] [address]Performed By: #### 87092- 8 ####[facility] LABIA [id number] [place], [place] [address]Aiucwvgysy (Bld) [Volume fraction]33.0 %Low36.0-46.0 [facility] on above:Order Comment: Specimen Type: BLOOD SPECIMENOrdering Facility: [facility] Address:[address] [place], [place] [address]Performed By: #### 42915-4 ####[facility] LABIA [id number] [place], [place] [address]Ziarmymwxh (Bld) [Mass/Vol]11.6 g/kUPmgxaz62.5-15.5CSt. [facility] on above: Order Comment: Specimen Type: BLOOD SPECIMENOrdering Facility: [facility] Address:[address] [place], [place] [address]Performed By: #### 78353- 8 ####[facility] LABCLIA [id number] [place], [place] [address]Srqskxea granulocytes (Bld) [#/Vol]0.04 10*3/uLNormal <0.10[facility] on above:Order Comment: Specimen Type: BLOOD SPECIMENOrdering Facility: [facility] Address:[address] [place], [place] [address]Performed By: #### 08870-4 ####[facility] LABCLIA [id number] [place], [place] [address]Jtpvqlce granulocytes/100 WBC (Bld)0.5 %NormalHolzer Hospital on above: Order Comment: Specimen Type: BLOOD SPECIMENOrdering Facility: [facility] Address:[address] [place], [place] [address]Performed By: #### 82806- 8 ####[facility] LABCLIA [id number] [place], [place] [address]Iiuatdqiuyk (Bld) [#/Vol]2.31 10*3/uLNormal1.00-4.00 [facility] on above:Order Comment: Specimen Type: BLOOD SPECIMENOrdering Facility: [facility] Address:[address] [place], [place] [address]Performed By: #### 04266-3 ####[facility] LABCLIA [id number] [place], [place] [address]Uksxynsjllv/100 WBC (Bld)26.7 %NormalHolzer Hospital on above:Order Comment: Specimen Type: BLOOD SPECIMENOrdering Facility: [facility] Address:[address] [place], [place] [address]Performed By: #### 24819-6 ####[facility] LABCLIA [id number] [place], [place] [address]FZN (RBC) [Entitic mass]31.3 qqDmtbls47.0-34.0[facility] on above:Order Comment: Specimen Type: BLOOD SPECIMENOrdering Facility: [facility] Address:[address] [place], [place] [address]Performed By: #### 80195-7 ####[facility] LABCLIA [id number] [place], [place] [address]RMJG (RBC) [Mass/Vol]35.2 g/pZTcatmh55.5-36.0[facility] on above: Order Comment: Specimen Type: BLOOD SPECIMENOrdering Facility: [facility] Address:[address] [place], [place] [address]Performed By: #### 98591- 8 ####[facility] LABCLIA [id number] [place], [place] [address]TCF (RBC) [Entitic vol]88.9 xIBufpsf23.0-100.0[facility] on above:Order Comment: Specimen Type: BLOOD SPECIMENOrdering Facility: [facility] Address:[address] [place], [place] [address]Performed By: #### 14042-3 ####[facility] LABIA [id number] [place], [place] [address]Fcvrkiznw (Bld) [#/Vol]0.63 10*3/uLNormal<0.87[facility] on above:Order Comment: Specimen Type: BLOOD SPECIMENOrdering Facility: [facility] Address:[address] [place], [place] [address]Performed By: #### 30453- 8 ####[facility] LABCLIA [id number] [place], [place] [address]Vxhjcwuoj/100 WBC (Bld)7.3 %NormalHolzer Hospital on above:Order Comment: Specimen Type: BLOOD SPECIMENOrdering Facility: [facility] Address:[address] [place], [place] [address]Performed By: #### 42228-2 ####[facility] LABCLIA [id number] [place], [place] [address]Rcwcurqsvdo (Bld) [#/Vol]5.57 10*3/uLNormal1.45-7.50[facility] on above:Order Comment: Specimen Type: BLOOD SPECIMENOrdering Facility: [facility] Address:[address] [place], [place] [address]Performed By: #### 56427-1 ####[facility] LABCLIA [id number] [place], [place] [address]Jfnoqpukivs/100 WBC (Bld)64.5 %NormalHolzer Hospital on above:Order Comment: Specimen Type: BLOOD SPECIMENOrdering Facility: [facility] Address:[address] [place], [place] [address]Performed By: #### 26579-0 ####[facility] LABCLIA [id number] [place], [place] [address]Pmwwlqyve RBC (Bld) [#/Vol] 10*3/uLNormal<0.01[facility] on above:Order Comment: Specimen Type: BLOOD SPECIMENOrdering Facility: [facility] Address:[address] [place], [place] [address]Performed By: #### 69354-2 ####[facility] LABCLIA [id number] [place], [place] [address]Hgvfdgisi RBC/100 WBC (Bld) [Ratio]0.0 /100 WBCNormal [facility] on above:Order Comment: Specimen Type: BLOOD SPECIMENOrdering Facility: [facility] Address:[address] [place], [place] [address]Performed By: #### 77797-1 ####[facility] LABIA [id number] [place], [place] [address]Rmmrmbap mean volume (Bld) [Entitic vol]9.4 fLNormal9.0-12.7CSt. [facility] on above:Order Comment: Specimen Type: BLOOD SPECIMENOrdering Facility: [facility] Address:[address] [place] [address] Performed By: #### 09302-2 ####[facility] LABCLIA [id number] [place], [place] [address]Qyvcyvtsv (Bld) [#/Vol]257 10*3/hPPuujwo308-758XpokeupjlHolzer Hospital on above:Order Comment: Specimen Type: BLOOD SPECIMENOrdering Facility: [facility] Address:[address] [place], [place] [address]Performed By: #### 95531-2 ####[facility] LABIA [id number] [place], [place] [address]VGX (Bld) [#/Vol]3.71 10*6/uLLow3.90-5.20[facility] on above:Order Comment: Specimen Type: BLOOD SPECIMENOrdering Facility: [facility] Address:[address] [place], [place] [address]Performed By: #### 57912-3 ####[facility]ITALIA [id number] [place], [place] [address]UNE (Bld) [#/Vol]8.64 10*3/uL Normal3.70-11.00[facility] on above:Order Comment: Specimen Type: BLOOD SPECIMENOrdering Facility: [facility] Address:[address] [place], [place] [address]Performed By: #### 20370-1 ####[facility] LABIA [id number] [place], [place] [address]DLVVAOti 39-52-3433BVUCTSTectt (SP) Office ([place]) SANNA RENDON ([id number]) 1985 F Date Time Provider Department 03/02/25 11:30 AM KATHERINE NEGRETE During your visit today, we recorded the following information about you: Temperature Pulse Respiration Blood pressure 97.2 degrees 73/minute 16/minute 133/79 Weight 97.2 kg Katherine Negrete APRN.CNP 03/02/2025 8:18 PM Signed NAME: Sanna Rendon CLINIC NO.: [id number] DATE OF SERVICE: March 02, 2025 ([place]) [...] later in 2018. These were found in [place], [place]. 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 NormalSelect [facility], Avonprehensive metabolic 2000 panelon 03-02-2025 Albumin [Mass/Vol]4.1 g/dLNormal3.9-4.9CSt. [facility] on above:Order Comment: Specimen Type: BLOOD SPECIMENOrdering Facility: [facility] Address:[address] [place], [place] [address]Performed By: #### 35606-1 ####[facility] LABCLIA [id number] [place], [place] [address]OSV [Catalytic activity/Vol]64 U/KTkaqsq44-460 [facility] on above:Order Comment: Specimen Type: BLOOD SPECIMENOrdering Facility: [facility] Address:[address] [place], [place] [address]Performed By: #### 88887-0 ####[facility] LABCLIA [id number] [place], [place] [address]QFX [Catalytic activity/Vol]10 U/LNormal7-38[facility] on above:Order Comment: Specimen Type: BLOOD SPECIMENOrdering Facility: [facility] Address:[address] [place], [place] [address]Performed By: #### 02370- 8 ####[facility] LABCLIA [id number] [place], [place] [address]Oypjj gap [Moles/Vol]13 mmol/LNormal8-15[facility] on above:Order Comment: Specimen Type: BLOOD SPECIMENOrdering Facility: [facility] Address:[address] [place], [place] [address]Performed By: #### 74069-1 ####[facility] LABCLIA [id number] [place], [place] [address]HQH [Catalytic activity/Vol]12 U/SYix31-66UxjqravviHolzer Hospital on above:Order Comment: Specimen Type: BLOOD SPECIMENOrdering Facility: [facility] Address:[address] [place], [place] [address]Performed By: #### 31554-9 ####[facility] LABCLIA [id number] [place] [address] Bilirubin [Mass/Vol]0.2 mg/dLNormal0.2-1.3CSt. [facility] Hospital on above:Order Comment: Specimen Type: BLOOD SPECIMENOrdering Facility: [facility] Address:[address] [place], [place] [address]Performed By: #### 37340-7 ####[facility] LABCLIA [id number] [place], [place] [address]Nplnnwm [Mass/Vol]10.3 mg/dLHigh8.5-10.2CSt. [facility] Hospital on above:Order Comment: Specimen Type: BLOOD SPECIMENOrdering Facility: [facility] Address:[address] [place], [place] [address]Performed By: #### 37859-1 ####[facility] LABCLIA [id number] [place], [place] [address]Gwsrhzfu [Moles/Vol]97 mmol/FFlc69-979MegyzpnwfHolzer Hospital on above:Order Comment: Specimen Type: BLOOD SPECIMENOrdering Facility: [facility] Address:[address] [place], [place] [address]Performed By: #### 93989- 8 ####[facility] LABCLIA [id number] [facility] [place] [place], [place] [address]OR0 [Moles/Vol]21 mmol/GVir31-70CsxrgwkpnHolzer Hospital on above:Order Comment: Specimen Type: BLOOD SPECIMENOrdering Facility: [facility] Address:[address] [place], [place] [address]Performed By: #### 34512-8 ####[facility] LABCLIA [id number] [place], [place] [address]Xhyagqkuce [Mass/Vol]0.54 mg/dL Low0.58-0.96[facility] on above:Order Comment: Specimen Type: BLOOD SPECIMENOrdering Facility: [facility] Address:[address] [place], [place] [address]Performed By: #### 88830-1 ####[facility] LABCLIA [id number] [place] [address] eGFRcr SerPlBld CKD-EPI 9462952 mL/min/1.73m???Normal>=60[facility] on above:Order Comment: Specimen Type: BLOOD SPECIMENOrdering Facility: [facility] Address:[address] [place], [place] [address]Result Comment: Estimated Glomerular Filtration Rate (eGFR) is [...] accurately reflect actual GFR. Performed By: #### 28558-8 ####[facility] LABIA [id number] [place], [place] [address]Vqxspfp [Mass/Vol]71 mg/dLLow 74-99[facility] on above:Order Comment: Specimen Type: BLOOD SPECIMENOrdering Facility: [facility] Address:[address] [place], [place] [address]Result Comment: The [place] Diabetes Association (ADA) provides guidance for cutoff [...] Standards of Medical Care in Diabetes 2016, [place] [employer] Association. Diabetes Care. 2016.39(Suppl 1).Performed By: #### 44718-3 ####[facility] LABCLIA [id number] [place], [place] [address]Phumvtatt [Moles/Vol]3.9 mmol/LNormal3.7-5.1CSt. [facility] Hospital on above:Order Comment: Specimen Type: BLOOD SPECIMENOrdering Facility: [facility] Address:[address] [place], [place] [address]Performed By: #### 94536-3 ####[facility] LABCLIA [id number] [place], [place] [address]Bnoagxm [Mass/Vol]7.2 g/dLNormal6.3-8.0[facility] on above:Order Comment: Specimen Type: BLOOD SPECIMENOrdering Facility: [facility] Address:[address] [place], [place] [address]Performed By: #### 25205- 8 ####[facility] LABCLIA [id number] [place], [place] [address]Dlfzqw [Moles/Vol]131 mmol/OQvb274-545JtjdjcolnHolzer Hospital on above:Order Comment: Specimen Type: BLOOD SPECIMENOrdering Facility: [facility] Address:[address] [place], [place] [address]Performed By: #### 80294-7 ####[facility] LABCLIA [id number] [place], [place] [address]Mycp nitrogen [Mass/Vol]9 mg/dL Normal7-21[facility] on above:Order Comment: Specimen Type: BLOOD SPECIMENOrdering Facility: [facility] Address:[address] [place], [place] [address], [place] [address]Performed By: #### 88418-8 ####[facility] LABCLIA [id number] [place] [address] US OB BPP W NON-STRESSon 36-50-4065[place] [address] Ultrasound Report Signed Patient: SANNA RENDON MR#: [id number] : 1985 Acct:[id number] Age/Sex: 39 / F ADM Date: 02/26/25 Loc: US Attending Dr: Wilton Herrmann D.O. Ordering Physician: Wilton Herrmann D.O. Date of Service: 02/26/25 Procedure(s): US OB BPP w non-stress Accession Number(s): [id number] cc: Wilton Herrmann D.O.; Physician,Non-Staff M.DLazara The [place] [address] Patient Name: SANNA RENDON MRN: [id number] date: 1985 Sex: F Assigned Patient Location: US Current Patient Location: Accession/Order Number: [id number] Exam Date: 02/26/2025 19:42 Report Date: 02/27/2025 [...] Pisano M.D. 02/27/2025 10:53 AM Dictation Location: [place] [address] Electronically authenticated by: [id number] Y Date: 02/27/2025 10:53 Dictated By: Pamela Pisano M.D. Signed By: 02/27/25 1056 DD/ 1053 TD/TT: Podiatry Teacher:MANUELHRadiology, Radiologist, - 02/27/2025 [place] [address] Ultrasound Report Signed Patient: SANNA RENDON MR#: [id number] : 1985 Acct:[id number] Age/Sex: 39 / F ADM Date: 02/26/25 Loc: US Attending Dr: Wilton Herrmann D.O. Ordering Physician: Wilton Herrmann D.O. Date of Service: 02/26/25 Procedure(s): US OB BPP w non-stress Accession Number(s): [id number] cc: Wilton Herrmann D.O.; Physician,Non-Staff [place] The [address] [id number] Patient Name: SANNA RENDON MRN: [id number] date: 1985 Sex: F Assigned Patient Location: Current Patient Location: Accession/Order Number: [id number] Exam Date: 02/26/2025 19:42 Report Date: 02/27/2025 [...] Pisano M.D. 02/27/2025 10:53 AM Dictation Location: [place] [address] Electronically authenticated by: [id number] Y Date: 02/27/2025 10:53 Dictated By: Pamela Pisano M.D. Signed By: 02/27/25 1056 DD/ 1053 TD/TT: Podiatry Teacher: [facility] HealthcareRadiology Study observation (narrative)[facility] HealthcareUS OB BPP W NON-STRESSOrdered By: Radiologist Radiology on 40-85-4619UVOXSouthPointe Hospital Work Phone: Urinalysis macro (dipstick) panel [...] - 1.03[facility] Urobilinogen, UA0.20.2 - 12 mg/dLNOEllett Memorial HospitalNOEllett Memorial HospitalNo Panel InformationOrdered By: Radiologist Radiology on 37-83-3785RAORSouthPointe Hospital Work Phone: No Panel Informationon 18-43-7411Gqsenepbn Study observation (narrative)SHILOH BrowningUS OB BPP W NON-STRESSon 02-20-2025 [place] [address] Ultrasound Report Signed Patient: SANNA RENDON MR#: [id number] : 1985 Acct:[id number] Age/Sex: 39 / F ADM Date: 02/19/25 Loc: US Attending Dr: Wilton Herrmann D.O. Ordering Physician: Wilton Herrmann D.O. Date of Service: 02/19/25 Procedure(s): US OB BPP w non-stress Accession Number(s): [id number] cc: Wilton Herrmann D.O.; Physician,Non-Staff M.DLazara The [place] [id number] Patient Name: SANNA RENDON MRN: [id number] date: 1985 Sex: F Assigned Patient Location: LAB Current Patient Location: Accession/Order Number: [id number] Exam Date: 02/19/2025 19:47 Report Date: 02/20/2025 [...] IMPRESSION: NORMAL BIOPHYSICAL PROFILE Impression dictated by: Pmaela Pisano M.D. 02/20/2025 8:37 AM Dictation Location: [place] [address] Electronically authenticated by: [id number] Y Date: 02/20/2025 08:37 Dictated By: Pamela Pisano M.D. Signed By: 02/20/25 0840 DD/ 0837 TD/TT: Podiatry Teacher:TBHRadiology, Radiologist, - 02/20/2025 [place] [address] Ultrasound Report Signed Patient: SANNA RENDON MR#: [id number] : 1985 Acct:[id number] Age/Sex: 39 / F ADM Date: 02/19/25 Loc: US Attending Dr: Wilton Herrmann D.O. Ordering Physician: Wilton Herrmann D.O. Date of Service: 02/19/25 Procedure(s): US OB BPP w non-stress Accession Number(s): [id number] cc: Wilton Herrmann D.O.; Physician,Non-Staff Tamia The [place] [id number] Patient Name: SANNA RENDON MRN: [id number] date: 1985 Sex: F Assigned Patient Location: LAB Current Patient Location: Accession/Order Number: [id number] Exam Date: 02/19/2025 19:47 Report Date: 02/20/2025 [...] Pisano M.D. 02/20/2025 8:37 AM Dictation Location: [place] [address] Electronically authenticated by: [id number] Y Date: 02/20/2025 08:37 Dictated By: Pamela Pisano M.D. Signed By: 02/20/25 0840 DD/ 0837 TD/TT: Podiatry Teacher: SHILOH Ibanez OB GROWTHon 52-90-6765[place] [address] Ultrasound Report Signed Patient: SANNA RENDON MR#: [id number] : 1985 Acct:[id number] Age/Sex: 39 / F ADM Date: 02/19/25 Loc: US Attending Dr: Wilton Herrmann D.O. Ordering Physician: Wilton Herrmann D.O. Date of Service: 02/19/25 Procedure(s): US OB growth Accession Number(s): [id number] cc: Wilton Herrmann D.O.; Physician,Non-Staff M.Ashvin [facility] [place] [id number] Patient Name: SANNA RENDON MRN: [id number] date: 1985 Sex: F Assigned Patient Location: LAB Current Patient Location: Accession/Order Number: [id number] Exam Date: 02/19/2025 19:47 Report Date: 02/20/2025 [...] Pisano M.D. 02/20/2025 8:37 AM Dictation Location: [place] [address] Electronically authenticated by: [id number] Y Date: 02/20/2025 08:37 Dictated By: Pamela Pisano M.D. Signed By: 02/20/25839 DD/ 6 TD/TT: Podiatry Teacher:TBHRadiology, Radiologist, - 02/20/2025 [place] [address] Ultrasound Report Signed Patient: SANNA RENDON MR#: [id number] : 1985 Acct:[id number] Age/Sex: 39 / F ADM Date: 02/19/25 Loc: US Attending Dr: Wilton Herrmann D.O. Ordering Physician: Wilton Herrmann D.O. Date of Service: 02/19/25 Procedure(s): US OB growth Accession Number(s): [id number] cc: Wilton Herrmann D.O.; Physician,Non-Staff Tamia [facility] [place] [id number] Patient Name: SANNA RENDON MRN: [facility]:[id number] date: 1985 Sex: F Assigned Patient Location: LAB Current Patient Location: Accession/Order Number: [id number] Exam Date: 02/19/2025 19:47 Report Date: 02/20/2025 [...] Pisano M.D. 02/20/2025 8:37 AM Dictation Location: [place] [address] Electronically authenticated by: [id number] Y Date: 02/20/2025 08:37 Dictated By: Pamela Pisano M.D. Signed By: 02/20/25 0840 DD/ TD/TT: Podiatry Teacher: SHILOH Colon CBC WITH AUTO DIFFon [id number] ABSOLUTE AUTO0.0NOMS HealthcareBasophils/100 WBC (Bld)0.2 %0.2 - 2.0 %SHILOH HealthcareEosinophils/100 WBC (Bld)0.3 %Low0.9 - 7.0 %NOMS HealthcareErythrocyte distribution width (RBC) [Ratio]13.1 %11.0 - 15.0 %NOMS HealthcareHematocrit (Bld) [Volume fraction]34.6 %Low36.0 - 48.0 %NOM HealthcareHemoglobin (Bld) [Mass/Vol]12.1 g/dL12.0 - 16.0 g/dLNOOR HealthcareIMMATURE GRANULOCYTES ABS AUTO0.06HighNOOR HealthcareImmature granulocytes/100 WBC (Bld)0.6 %High0.0 - 0.5 %NOMS HealthcareInterpretation and review of laboratory resultsAbnormalNOOR HealthcareLYMPHOCYTES ABSOLUTE AUTO2.3 NOM HealthcareLymphocytes/100 WBC (Bld)24.3 %20.5 - 60.0 %[facility] HospitalH (RBC) [Entitic mass]31.7 pg26.7 - 34.0 pgNOEllett Memorial HospitalMCHC (RBC) [Mass/Vol] 35.0 g/dL29.9 - 35.2 g/dLSouthPointe HospitalMCV (RBC) [Entitic vol]90.6 fL81.0 - 99.0 fLNOOR HealthcareMONOCYTES ABSOLUTE AUTO0.5NOMS HealthcareMonocytes/100 WBC (Bld)5.6 %1.7 - 12.0 %NOM HealthcareNEUTROPHILS ABSOLUTE AUTO6.6HighNOMS HealthcareNeutrophils/100 WBC (Bld)69.0 %43.0 - 75.0 %[facility] HealthcarePlatelet mean volume (Bld) [Entitic vol]9.7 fL9.5 - 13.5 fLNOEllett Memorial HospitalTBH EO #0.0NOMS [facility] HospitalTB DXB507PQVJ [facility] HospitalTB RBC3.82LowNOMS [facility] HospitalTB WBC9.6NOOR HealthcareCLINISYNCNOMS HealthcareUrinalysis macro (dipstick) panel (U)on 23-93-9462Nuyofosqr, UANegativeNegative - 4(70) +++ mg/dLNOMS HealthcareBlood, UANegativeNegative - 50 Max/mcLNOMS HealthcareClarity, UAClearNOMS Healthcare Color, UAYellowNOMS HealthcareGlucose, UANegativeNegative - 2000(110) ++++ mg/dL NOMS HealthcareInterpretation and review of laboratory resultsAbnormalNOOR HealthcareKetones, UANegativeNegative - 160(16) ++++ mg/dLNOOR Healthcare Leukocytes, UATraceNegative - 500+++ John/mcLNOOR HealthcareNitrite, UANegative Negative - PositiveNOMS HealthcarepH, UA6.55 - 9NOMS HealthcareProtein, UA NegativeNegative - 2000(20) ++++ mg/dLNOMS HealthcareSpec Grav, UA1.0051 - 1.03 NOMS HealthcareUrobilinogen, UA2.00.2 - 12 mg/dLNOMS HealthcareNOMS Healthcare CNPNon 52-52-2568NXACZgiprbkay ([place]) SANNA RENDON ([id number]) 1985 F Date Time Provider Department 01/29/25 [...] Date Reviewed: 12/24/2024 Reviewed by: Katherine Negrete APRN.RAND BUTTING MACHINE OPERATOR - Fully Assessed Reason for Visit: [...] 05/28/2024 Encounter Status:Closed by RACHAEL JOHNSON on 01/30/25[facility] 60-17-4812DHNPBglxzhgpm ([place]) SANNA RENDON ([id number]) 1985 F Date Time Provider Department 01/26/25 [...] Date Reviewed: 12/24/2024 Reviewed by: Penelope, Katherine, HOGSHEAD WEIGHER.RAND BUTTING MACHINE OPERATOR - Fully Assessed Prescriptions as of [...] 05/28/2024 Encounter Status:Closed by RACHAEL JOHNSON on 01/26/25NoalCThe Jewish HospitalUrinalysis macro (dipstick) panel (U)on 67-60-7668Tgjlxmgnw, UANegative Negative - 4(70) +++ mg/dLNOMS HealthcareBlood, UANegativeNegative - 50 Max/mcL NOMS HealthcareClarity, UAClearNOOR HealthcareColor, UAYellowNOOR Healthcare Glucose, UANegativeNegative - 2000(110) ++++ mg/dLNOMS HealthcareInterpretation and review of laboratory resultsNormalNOOR HealthcareKetones, UANegativeNegative - 160(16) ++++ mg/dLNOMS HealthcareLeukocytes, UANegativeNegative - 500+++ John/mcLNOMS HealthcareNitrite, UANegativeNegative - PositiveNOMS HealthcarepH, UA65 - 9NOMS HealthcareProtein, UANegativeNegative - 2000(20) ++++ mg/dLNOMS HealthcareSpec Grav, UA1.011 - 1.03NOMS HealthcareUrobilinogen, UA0.20.2 - 12 mg/dLNOMS HealthcareNOMS HealthcareTSHon 02-11-7994UFO Qn1.85 m[IU]/LNormal 0.34-5.60[facility] Lenoirer [facility] Hospital Of BaltimoreComment on above:Performed By: #### [id number] #### [facility] [address] [place], [place] [address]Tqeruznydy macro (dipstick) panel (U)on 94-81-3395Lranssyop, UA NegativeNegative - 4(70) +++ mg/dLNOMS HealthcareBlood, [...] HealthcareNOMS HealthcareCBC W Auto Differential panel (Bld)on 15-44-8128Kndzltfri (Bld) [#/Vol]10*3/uLNormal<0.11CThe Jewish HospitalComment on above:Order Comment: Specimen Type: BLOOD SPECIMENOrdering Facility: [facility] Address:[address] [place], [place] [address]Nczosiuqx By: #### 36967-3 ####[facility] LABCLIA [id number] [place], [place] [address]Hjkbrqali/100 WBC (Bld)0.2 % NormalHolzer Hospital on above:Order Comment: Specimen Type: BLOOD SPECIMENOrdering Facility: [facility] Address:[address] [place], [place] [address]Performed By: #### 32289-0 ####[facility] LABCLIA [id number] [place] [address] Differential cell count method Nom (Bld)AutoNormalClevelBlue Ridge Regional Hospital Comment on above:Order Comment: Specimen Type: BLOOD SPECIMENOrdering Facility: [facility] Address:[address] [place] [address] Performed By: #### 81398-7 ####[facility] LABCLIA [id number] [place], [place] [address]Bsguzjybzix (Bld) [#/Vol]0.03 10*3/uLNormal<0.46[facility] on above:Order Comment: Specimen Type: BLOOD SPECIMENOrdering Facility: [facility] Address:[address] [place], [place] [address]Performed By: #### 14930-6 ####[facility] LABCLIA [id number] [place], [place] [address]Ziwawnmaueh/100 WBC (Bld)0.4 %NormalHolzer Hospital on above:Order Comment: Specimen Type: BLOOD SPECIMENOrdering Facility: [facility] Address:[address] [place], [place] [address]Performed By: #### 53063-3 ####[facility] LABIA [id number] [place], [place] [address]Ulivsasqfsj distribution width (RBC) [Ratio]13.5 %Xkaoxv71.5-15.0[facility] on above: Order Comment: Specimen Type: BLOOD SPECIMENOrdering Facility: [facility] Address:[address] [place], [place] [address]Performed By: #### 66635- 8 ####[facility] LABCLIA [id number] [place], [place] [address]Dfnxnrwayr (Bld) [Volume fraction]34.6 %Low36.0-46.0 [facility] on above:Order Comment: Specimen Type: BLOOD SPECIMENOrdering Facility: [facility] Address:[address] [place], [place] [address]Performed By: #### 59524-8 ####[facility] LABCLIA [id number] [place], [place] [address]Yljqjdulsz (Bld) [Mass/Vol]12.0 g/qAQypcvl00.5-15.5CSt. [facility] on above: Order Comment: Specimen Type: BLOOD SPECIMENOrdering Facility: [facility] Address:[address] [place], [place] [address]Performed By: #### 74017- 8 ####[facility] LABCLIA [id number] [place], [place] [address]Dzhhgnek granulocytes (Bld) [#/Vol]0.04 10*3/uLNormal <0.10[facility] on above:Order Comment: Specimen Type: BLOOD SPECIMENOrdering Facility: [facility] Address:[address] [place], [place] [address]Performed By: #### 60899-5 ####[facility] LABCLIA [id number] [place], [place] [address]Vncfwfst granulocytes/100 WBC (Bld)0.5 %NormalHolzer Hospital on above: Order Comment: Specimen Type: BLOOD SPECIMENOrdering Facility: [facility] Address:[address] [place], [place] [address]Performed By: #### 17085- 8 ####[facility] LABCLIA [id number] [place], [place] [address]Aruwmvyildl (Bld) [#/Vol]2.45 10*3/uLNormal1.00-4.00 [facility] on above:Order Comment: Specimen Type: BLOOD SPECIMENOrdering Facility: [facility] Address:[address] [place], [place] [address]Performed By: #### 11985-7 ####[facility] LABCLIA [id number] [place], [place] [address]Vjtdmprbthz/100 WBC (Bld)28.7 %NormalHolzer Hospital on above:Order Comment: Specimen Type: BLOOD SPECIMENOrdering Facility: [facility] Address:[address] [place], [place] [address]Performed By: #### 60293-1 ####[facility] LABCLIA [id number] [place], [place] [address]SGU (RBC) [Entitic mass]31.6 bqKjevwh53.0-34.0[facility] on above:Order Comment: Specimen Type: BLOOD SPECIMENOrdering Facility: [facility] Address:[address] [place], [place] [address]Performed By: #### 02129-3 ####[facility] LABCLIA [id number] [place], [place] [address]MXFN (RBC) [Mass/Vol]34.7 g/mZIdphhl36.5-36.0[facility] on above: Order Comment: Specimen Type: BLOOD SPECIMENOrdering Facility: [facility] Address:[address] [place], [place] [address]Performed By: #### 19049- 8 ####[facility] LABCLIA [id number] [place], [place] [address]AIN (RBC) [Entitic vol]91.1 uLQmglkm55.0-100.0[facility] on above:Order Comment: Specimen Type: BLOOD SPECIMENOrdering Facility: [facility] Address:[address] [place], [place] [address]Performed By: #### 52844-6 ####[facility] LABCLIA [id number] [place], [place] [address]Lwzyjfjeo (Bld) [#/Vol]0.44 10*3/uLNormal<0.87[facility] on above:Order Comment: Specimen Type: BLOOD SPECIMENOrdering Facility: [facility] Address:[address] [place], [place] [address]Performed By: #### 47628- 8 ####[facility] LABCLIA [id number] [place], [place] [address]Dripszair/100 WBC (Bld)5.1 %NormalHolzer Hospital on above:Order Comment: Specimen Type: BLOOD SPECIMENOrdering Facility: [facility] Address:[address] [place], [place] [address]Performed By: #### 84746-3 ####[facility] LABCLIA [id number] [place], [place] [address]Cdghatfgtgs (Bld) [#/Vol]5.57 10*3/uLNormal1.45-7.50[facility] on above:Order Comment: Specimen Type: BLOOD SPECIMENOrdering Facility: [facility] Address:[address] [place], [place] [address]Performed By: #### 11330-7 ####[facility] LABCLIA [id number] [place], [place] [address]Rbkjpselzps/100 WBC (Bld)65.1 %NormalHolzer Hospital on above:Order Comment: Specimen Type: BLOOD SPECIMENOrdering Facility: [facility] Address:[address] [place], [place] [address]Performed By: #### 04393-7 ####[facility] LABCLIA [id number] [place], [place] [address]Junlfxtwn RBC (Bld) [#/Vol] 10*3/uLNormal<0.01[facility] on above:Order Comment: Specimen Type: BLOOD SPECIMENOrdering Facility: [facility] Address:[address] [place], [place] [address]Performed By: #### 68297-5 ####[facility] LABCLIA [id number] [place], [place] [address]Ddbwxrrhm RBC/100 WBC (Bld) [Ratio]0.0 /100 WBCNormal [facility] on above:Order Comment: Specimen Type: BLOOD SPECIMENOrdering Facility: [facility] Address:[address] [place], [place] [address]Performed By: #### 06066-9 ####[facility] LABIA [id number] [place], [place] [address]Fykuknqc mean volume (Bld) [Entitic vol]9.7 fLNormal9.0-12.7CSt. [facility] on above:Order Comment: Specimen Type: BLOOD SPECIMENOrdering Facility: [facility] Address:[address] [place] [address] Performed By: #### 52494-6 ####[facility] LABCLIA [id number] [place], [place] [address]Fhiuttoff (Bld) [#/Vol]260 10*3/jCSiuiiq265-827KhhfamytlHolzer Hospital on above:Order Comment: Specimen Type: BLOOD SPECIMENOrdering Facility: [facility] Address:[address] [place], [place] [address]Performed By: #### 13357-2 ####[facility] LABCLIA [id number] [place], [place] [address]LXO (Bld) [#/Vol]3.80 10*6/uLLow3.90-5.20[facility] on above:Order Comment: Specimen Type: BLOOD SPECIMENOrdering Facility: [facility] Address:[address] [place], [place] [address]Ulmuevxri By: #### 89949-7 ####[facility]PITALIA [id number] [place], [place] [address]GUP (Bld) [#/Vol]8.55 10*3/uL Normal3.70-11.00[facility]ert HospitalComascension providence hospital on above:Order Comment: Specimen Type: BLOOD SPECIMENOrdering Facility: [facility] Address:[address] [place] [address]Aubxrwudl By: #### 63687-5 ####[facility] LABCLIA [id number] [place], [place] [address]CFRYBZrv 74-83-7629EIRBIXNqvyn (SP) Office ([place]) SANNA RENDON ([id number]) 1985 F Date Time Provider Department 12/23/24 11:30 AM KATHERINE NEGRETE During your visit today, we recorded the following information about you: Temperature Pulse Respiration Blood pressure 97.6 degrees 80/minute 16/minute 103/69 Weight Height 94.4 kg 1.677 m Katherine Negrete 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 These were found in [place], [place]. I don't have access to these [...] a target-like rash shortly before presenting to [facility] in 2015 with headaches and was [...] vitamin D supplementat (more content not included)...Normal [facility] HospitalComprehensive metabolic 2000 panelon 42-13-3780Vfgkfbc [Mass/Vol]4.1 g/dLNormal3.9-4.9CSt. [facility] on above:Order Comment: Specimen Type: BLOOD SPECIMENOrdering Facility: [facility] Address:[address] [place] [address]Performed By: #### 07765- 8 ####[facility] LABCLIA [id number] FABI DUMONTHONORHE[facility] SHE[facility] MEDICAL CENTERVANESSAMANITOWISH [place], [place] [address]RZR [Catalytic activity/Vol]43 U/MIvxjwy84-655NzujitjcjHolzer Hospital on above:Order Comment: Specimen Type: BLOOD SPECIMENOrdering Facility: [facility] Address:[address] [place], [place] [address]Performed By: #### 50218-2 ####[facility] LABCLIA [id number] FABI GREENSEHONORHEALTH SCOTTSDALE SHEA MEDICAL CENTERTEETEEFRENCHVIL[place], [place] [address]CIR [Catalytic activity/Vol]11 U/LNormal7-38[facility] on above:Order Comment: Specimen Type: BLOOD SPECIMENOrdering Facility: [facility] Address:[address] [place], [place] [address]Performed By: #### 23709- 8 ####[facility] LABCLIA [id number] [facility] [place], [place] [address]Rouyg gap [Moles/Vol]12 mmol/LNormal8-15[facility] on above:Order Comment: Specimen Type: BLOOD SPECIMENOrdering Facility: [facility] Address:[address] [place], [place] [address]Performed By: #### 21244-7 ####[facility] LABCLIA [id number] FABI CHERRYHONORHEALTH SCOTTSD[facility] SHEA MEDICAL CENTERVANESSAMANITOWISH [place], [place] [address]PZS [Catalytic activity/Vol]12 U/RAbl79-23KhdrvmgjpHolzer Hospital on above:Order Comment: Specimen Type: BLOOD SPECIMENOrdering Facility: [facility] Address:[address] [place], [place] [address]Performed By: #### 90223-0 ####[facility] LABCLIA [id number] [facility] PETERSEHONORHEALTH SCOTTSDALE SHEA [place] [address] Bilirubin [Mass/Vol]0.2 mg/dLNormal0.2-1.3CSt. [facility] on above:Order Comment: Specimen Type: BLOOD SPECIMENOrdering Facility: [facility] Address:[address] [place], [place] [address]Performed By: #### 21314-7 ####[facility] LABCLIA [id number] [facility] [place]ENTERSEFR[place], [place] [address]Tbvhrsw [Mass/Vol]9.5 mg/dLNormal8.5-10.2CSt. [facility] on above:Order Comment: Specimen Type: BLOOD SPECIMENOrdering Facility: [facility] Address:[address] [place], [place] [address]Performed By: #### 17077-8 ####[facility] LABCLIA [id number] [place], [place] [address]Vnqtulzq [Moles/Vol]98 mmol/UZuqlpa73-508JsghkafxzHolzer Hospital on above:Order Comment: Specimen Type: BLOOD SPECIMENOrdering Facility: [facility] Address:[address] [place], [place] [address]Performed By: #### 25347- 8 ####[facility] LABCLIA [id number] [facility] [place]FR[place], [place] [address]UY2 [Moles/Vol]20 mmol/UDgh39-23AbhqnoeojHolzer Hospital on above:Order Comment: Specimen Type: BLOOD SPECIMENOrdering Facility: [facility] Address:[address] [place], [place] [address]Performed By: #### 32205-0 ####[facility] LABCLIA [id number] [place], [place] [address]Gbhqmzksvz [Mass/Vol]0.54 mg/dL Low0.58-0.96[facility] on above:Order Comment: Specimen Type: BLOOD SPECIMENOrdering Facility: [facility] Address:[address] [place], [place] [address]Performed By: #### 18084-6 ####[facility] LABCLIA [id number] [facility] [place] [place] [address] eGFRcr SerPlBld CKD-EPI 9901170 mL/min/1.73m???Normal>=60[facility] on above:Order Comment: Specimen Type: BLOOD SPECIMENOrdering Facility: [facility] Address:[address] [place], [place] [address]Kkmhyw Comment: Estimated Glomerular Filtration Rate (eGFR) is [...] accurately reflect actual GFR. Performed By: #### 57079-6 ####[facility] LABCLIA [id number] [place], [place] [address]Lkefzrx [Mass/Vol]104 mg/dLHigh 74-99[facility] on above:Order Comment: Specimen Type: BLOOD SPECIMENOrdering Facility: [facility] Address:[address] [place] [address]Zaqtea Comment: The [place] Diabetes Association (ADA) provides guidance for cutoff [...] Standards of Medical Care in Diabetes 2016, [place] Diabetes Association. Diabetes Care. 2016.39(Suppl 1).Performed By: #### 80690-9 ####[facility] LABCLIA [id number] [place], [place] [address]Mrxqesyux [Moles/Vol]4.0 mmol/LNormal3.7-5.1CSt. [facility] Hospital on above:Order Comment: Specimen Type: BLOOD SPECIMENOrdering Facility: [facility] Address:[address] [place], [place] [address]Oenwmfmfi By: #### 34325-8 ####[facility] LABCLIA [id number] [place], [place] [address]Mcutsyk [Mass/Vol]6.7 g/dLNormal6.3-8.0[facility] on above:Order Comment: Specimen Type: BLOOD SPECIMENOrdering Facility: [facility] Address:[address] [place], [place] [address]Performed By: #### 34442- 8 ####[facility] LABCLIA [id number] [place], [place] [address]Yevqqr [Moles/Vol]130 mmol/WWgt665-713TxtvetioyHolzer Hospital on above:Order Comment: Specimen Type: BLOOD SPECIMENOrdering Facility: [facility] Address:[address] [place], [place] [address]Performed By: #### 44585-6 ####[facility] LABCLIA [id number] [place], [place] [address]Dmia nitrogen [Mass/Vol]7 mg/dL Normal7-21[facility] on above:Order Comment: Specimen Type: BLOOD SPECIMENOrdering Facility: [facility] Address:[address] [place], [place] [address]Performed By: #### 13155-4 ####[facility] LABCLIA [id number] [place] [address] Ferritin SerPl-mCncon 60-90-9983Qxleotdw [Mass/Vol]43.5 ng/uSTkmepm61.7-205.1 [facility] on above:Order Comment: Specimen Type: BLOOD SPECIMENOrdering Facility: [facility] Address:[address] [place], [place] [address]Performed By: #### 24429-1, 2276-4, 2132-9 ####[facility] LABCLIA [id number] [place] [address] [place] AMERICAIron and Iron binding capacity panelon 08-26-2025 Iron [Mass/Vol]80 ug/dGWsyhgk07-346XxapzardzHolzer Hospital on above: Order Comment: Specimen Type: BLOOD SPECIMENOrdering Facility: [facility] Address:[address] [place], [place] [address]Performed By: #### 00143- 8, 2275-07, 2131-12 ####[facility] LABCLIA [id number] [address] AMERICAIron binding capacity [Mass/Vol]437 ug/zULtoa323-073TmmysyletHolzer Hospital on above:Order Comment: Specimen Type: BLOOD SPECIMENOrdering Facility: [facility] Address:[address] [place], [place] [address]Performed By: #### 72450- 8, 2275-07, 2131-12 ####[facility] LABCLIA [id number] [address]Iron/TIBC [Molar ratio]18.3 %Lttdpi49.0-57.0[facility] on above:Order Comment: Specimen Type: BLOOD SPECIMENOrdering Facility: [facility] Address:[address] [place], [place] [address]Performed By: #### 34112- 8, 2275-07, 2131-12 ####[facility] LABCLIA [id number] [place] [id number] [facility] AMERICAVit B12 [facility]l-[facility] 20-98-1322Sfqknmmve (Vitamin B12) [Mass/Vol]328 pg/xECyujte672-5176LjbioptvmSt. Vincent Hospital on above:Order Comment: Specimen Type: BLOOD SPECIMENOrdering Facility: [facility] Address:[address] [place], [place] [address]Performed By: #### 49127-4, 2275-07, 2131-12 ####[facility] LABCLIA [id number] [place] [id number] [facility]ITALTB UA (CLEAN/CATCH) HOSPITALIST NOCTURNIST PHYSICIAN/MICRO IF IND.on 99-80-0939WEFZIHRBW URINENegativeNEGATIVENOMS HealthcareBLOOD URINENegative NEGATIVENOMS HealthcareClarity (U)CLEARCLEARNOMS HealthcareColor (U)LT. YELLOW YELLOWNOMS HealthcareGLUCOSE URINE UANegativeNEGATIVE mg/dLNOMS Healthcare Interpretation and review of laboratory resultsAbnormalNOMS HealthcareKetones Ql (U)NegativeNEGATIVE mg/dLNOMS HealthcareLeukocyte esterase Test strip Ql (U) SMALLAbnormalNEGATIVENOMS HealthcareNITRITE URINENegativeNEGATIVENOMS Healthcare pH (U)6.0 [pH]5.0 - 9.0NOMS HealthcarePROTEIN URINENegativeNEG/TRACE mg/dLNOMS HealthcareSPECIFIC GRAVITY URINE<=1.794Hnnibfcj0.005 - 1.025NOMS HealthcareURINE MICROSCOPIC INDICATEDYESNOMS HealthcareUROBILINOGEN URINE0.2 EU/dL0.2 - 1.0 EU/dLNOOR HealthcareCLINISYNCNOMS HealthcareUS OB CERVICAL LENGTHon 12-16-[address] [address] Ultrasound Report Signed Patient: SANNA RENDON MR#: [id number] : 1985 Acct:[id number] Age/Sex: 39 / F ADM Date: Loc: [facility] 251-[address]: Wilton Herrmann D.O. Ordering Physician: Wilton Herrmann D.O. Date of Service: 12/16/24 Procedure(s): US OB cervical length Accession Number(s): [id number] cc: Wilton Herrmann D.O.; PENELOPE CASAS [address] [address] Patient Name: SANNA RENDON MRN: [id number] date: 1985 Sex: F Assigned Patient Location: [facility] Current Patient Location: Accession/Order Number: [id number] Exam Date: 12/16/2024 20:39 Report Date: 12/16/2024 [...] Beltrán M.D. 12/16/2024 8:41 PM Dictation Location: [facility] Electronically authenticated by: [id number] Y Date: 12/16/2024 20:41 Dictated By: Robert Beltrán D.O. Signed By: 12/16/242042 DD/ 40 TD/TT: Podiatry Teacher:ELVERadiologcarmen Radiologist, - 12/16/2024 [place] [address] Ultrasound Report Signed Patient: SANNA RENDON MR#: [id number] : 1985 Acct:[id number] Age/Sex: 39 / F ADM Date: Loc: [facility] [address]: Wilton Herrmann D.O. Ordering Physician: Wilton Herrmann D.O. Date of Service: 12/16/24 Procedure(s): US OB cervical length Accession Number(s): [id number] cc: Wilton Herrmann D.O.; PENELOPE CASAS [place] [address] Patient Name: SANNA RENDON MRN: [id number] date: 1985 Sex: F Assigned Patient Location: [facility] Current Patient Location: Accession/Order Number: [id number] Exam Date: 12/16/2024 20:39 Report Date: 12/16/2024 [...] Beltrán M.D. 12/16/2024 8:41 PM Dictation Location: [facility] Electronically authenticated by: [id number] Y Date: 12/16/2024 20:41 Dictated By: Robert Beltrán D.O. Signed By: 12/16/242042 DD/ 40 TD/TT: Podiatry Teacher: SHILOH HealthcareRadiology Study observation (narrative)NOMS HealthcareUS OB CERVICAL LENGTHOrdered By: Radiologist Radiology on [phone] Work Phone: aLL THYROID STIM HORMONEon [id number] Qn1.508 m[IU]/LNOMS HealthcareCLINISYNCNOMS HealthcareUrinalysis macro (dipstick) panel (U)on [id number], UANegativeNegative - 4(70) +++ mg/dLNOOR Healthcare Blood, UANegativeNegative - 50 Max/mcLNOOR HealthcareClarity, UAClearNOMS HealthcareColor, UAYellowNOMS HealthcareGlucose, UANegativeNegative - 2000(110) ++++ mg/dLNOOR HealthcareInterpretation and review of laboratory resultsNormal NOM HealthcareKetones, UANegativeNegative - 160(16) ++++ mg/dLNOOR Healthcare Leukocytes, UANegativeNegative - 500+++ John/mcLNOOR HealthcareNitrite, UA NegativeNegative - PositiveNOMS HealthcarepH, UA65 - 9NOMS HealthcareProtein, UA NegativeNegative - 2000(20) ++++ mg/dLNOOR HealthcareSpec Grav, UA1.011 - 1.03 NOMS HealthcareUrobilinogen, UA1.00.2 - 12 mg/dLNOOR HealthcareNOOR Healthcare Urinalysis macro (dipstick) panel (U)on 72-01-5529Vfheozpbx, UANegativeNegative - 4(70) +++ mg/dLNOMS HealthcareBlood, UANegativeNegative [...] mg/dLNOMS HealthcareNOMS HealthcareGlucose random or fasting- [facility] 11-19-2024 External Glucose Fasting Or Random (Fbs)94[facility] HospitalUrinalysis macro (dipstick) panel (U)on 16-86-2576Iifyykcqm, UA NegativeNegative - 4(70) +++ mg/dLNOMS HealthcareBlood, [...] 1.03NOMS HealthcareUrobilinogen, UA0.20.2 - 12 mg/dLNOMS HealthcareNOMS Xsbaxkhwek55([place])D3 SerPl-[facility] Centeron 71-55-270845648444-tiekdphtmurery D3 [Mass/Vol]32.1 ng/dLGlvttb48.0-80.0[facility] on above:Order Comment: Specimen Type: BLOOD SPECIMENOrdering Facility: [facility] Address:[address] [place], [place] [address]Result Comment: Classification of 25 [place] Vitamin D status: Deficiency/Insufficiency: < or = 30 ng/ml. Sufficiency/Optimal Levels: 31-80 ng/mL Toxicity: > 100 ng/mL. Test performed by chemiluminescent immunoassay.Performed By: #### 1989-3 ####[facility] LABCLIA [id number] [address] W Auto Differential panel (Bld)on 15-91-0285Lfubrwicv (Bld) [#/Vol]0.03 10*3/uLNormal<0.11CThe Jewish HospitalComment on above:Order Comment: Specimen Type: BLOOD SPECIMENOrdering Facility: [facility] Address:[address] [place], [place] [address]Performed By: #### 58259-0 ####[facility] LABIA [id number] [place], [place] [address]Ocoproccm/100 WBC (Bld)0.3 % NormalHolzer Hospital on above:Order Comment: Specimen Type: BLOOD SPECIMENOrdering Facility: [facility] Address:[address] [place], [place] [address]Performed By: #### 34793-2 ####[facility] LABCLIA [id number] [place] [address] Differential cell count method Nom (Bld)AutoNormalCThe Jewish Hospital Comment on above:Order Comment: Specimen Type: BLOOD SPECIMENOrdering Facility: [facility] Address:[address] [place] [address] Performed By: #### 58148-5 ####[facility] LABCLIA [id number] [place], [place] [address]Aknzondpskj (Bld) [#/Vol]0.05 10*3/uLNormal<0.46[facility] on above:Order Comment: Specimen Type: BLOOD SPECIMENOrdering Facility: [facility] Address:[address] [place], [place] [address]Performed By: #### 87811-7 ####[facility] LABCLIA [id number] [place], [place] [address]Hcnpsssaduo/100 WBC (Bld)0.5 %NormalHolzer Hospital on above:Order Comment: Specimen Type: BLOOD SPECIMENOrdering Facility: [facility] Address:[address] [place], [place] [address]Performed By: #### 77721-7 ####[facility] LABCLIA [id number] [place], [place] [address]Wcooqxrzfds distribution width (RBC) [Ratio]14.5 %Qnpujx37.5-15.0[facility] on above: Order Comment: Specimen Type: BLOOD SPECIMENOrdering Facility: [facility] Address:[address] [place], [place] [address]Performed By: #### 24920- 8 ####[facility] LABCLIA [id number] [place], [place] [address]Qpbzxashbg (Bld) [Volume fraction]36.9 %Owpcka37.0-46.0 [facility] on above:Order Comment: Specimen Type: BLOOD SPECIMENOrdering Facility: [facility] Address:[address] [place], [place] [address]Performed By: #### 80261-4 ####[facility] LABIA [id number] [place], [place] [address]Ygaxymvpfd (Bld) [Mass/Vol]13.0 g/yACdzrol05.5-15.5CSt. [facility] on above: Order Comment: Specimen Type: BLOOD SPECIMENOrdering Facility: [facility] Address:[address] [place], [place] [address]Performed By: #### 02611- 8 ####[facility] LABCLIA [id number] [place], [place] [address]Txwyqrzd granulocytes (Bld) [#/Vol]10*3/uLNormal<0.10 [facility] on above:Order Comment: Specimen Type: BLOOD SPECIMENOrdering Facility: [facility] Address:[address] [place], [place] [address]Performed By: #### 39703-2 ####[facility] LABCLIA [id number] [place], [place] [address]Wrxsifuk granulocytes/100 WBC (Bld)0.2 %NormalHolzer Hospital on above: Order Comment: Specimen Type: BLOOD SPECIMENOrdering Facility: [facility] Address:[address] [place], [place] [address]Performed By: #### 84420- 8 ####[facility] LABIA [id number] [place], [place] [address]Ewhbeipepqc (Bld) [#/Vol]2.50 10*3/uLNormal1.00-4.00 [facility] on above:Order Comment: Specimen Type: BLOOD SPECIMENOrdering Facility: [facility] Address:[address] [place], [place] [address]Performed By: #### 15395-1 ####[facility] LABIA [id number] [place], [place] [address]Wqhtqhjjqnm/100 WBC (Bld)26.3 %NormalHolzer Hospital on above:Order Comment: Specimen Type: BLOOD SPECIMENOrdering Facility: [facility] Address:[address] [place], [place] [address]Performed By: #### 36419-5 ####[facility] LABIA [id number] [place], [place] [address]LOR (RBC) [Entitic mass]30.6 zhDitzuy45.0-34.0[facility] on above:Order Comment: Specimen Type: BLOOD SPECIMENOrdering Facility: [facility] Address:[address] [place], [place] [address]Performed By: #### 00313-9 ####[facility] LABCLIA [id number] [place], [place] [address]AQTI (RBC) [Mass/Vol]35.2 g/gZAcnknj59.5-36.0[facility] on above: Order Comment: Specimen Type: BLOOD SPECIMENOrdering Facility: [facility] Address:[address] [place], [place] [address]Performed By: #### 91445- 8 ####[facility] LABCLIA [id number] [place], [place] [address]NTL (RBC) [Entitic vol]86.8 vSOiervz04.0-100.0[facility] on above:Order Comment: Specimen Type: BLOOD SPECIMENOrdering Facility: [facility] Address:[address] [place], [place] [address]Performed By: #### 15420-6 ####[facility] LABCLIA [id number] [place], [place] [address]Zznezfpym (Bld) [#/Vol]0.44 10*3/uLNormal<0.87[facility] on above:Order Comment: Specimen Type: BLOOD SPECIMENOrdering Facility: [facility] Address:[address] [place], [place] [address]Performed By: #### 77079- 8 ####[facility] LABCLIA [id number] [place], [place] [address]Yemcjkjgp/100 WBC (Bld)4.6 %NormalHolzer Hospital on above:Order Comment: Specimen Type: BLOOD SPECIMENOrdering Facility: [facility] Address:[address] [place], [place] [address]Performed By: #### 19531-2 ####[facility] LABCLIA [id number] [place], [place] [address]Gzbraltxizo (Bld) [#/Vol]6.48 10*3/uLNormal1.45-7.50[facility] on above:Order Comment: Specimen Type: BLOOD SPECIMENOrdering Facility: [facility] Address:[address] [place], [place] [address]Performed By: #### 90785-5 ####[facility] LABCLIA [id number] [place], [place] [address]Upddhrtldvu/100 WBC (Bld)68.1 %NormalHolzer Hospital on above:Order Comment: Specimen Type: BLOOD SPECIMENOrdering Facility: [facility] Address:[address] [place], [place] [address]Performed By: #### 46892-3 ####[facility] LABCLIA [id number] [place], [place] [address]Fstzugzkq RBC (Bld) [#/Vol] 10*3/uLNormal<0.01[facility] on above:Order Comment: Specimen Type: BLOOD SPECIMENOrdering Facility: [facility] Address:[address] [place], [place] [address]Performed By: #### 70444-5 ####[facility] LABCLIA [id number] [place], [place] [address]Pflqhskkx RBC/100 WBC (Bld) [Ratio]0.0 /100 WBCNormal [facility] on above:Order Comment: Specimen Type: BLOOD SPECIMENOrdering Facility: [facility] Address:[address] [place], [place] [address]Performed By: #### 41308-6 ####[facility] LABIA [id number] [place], [place] [address]Oafomezs mean volume (Bld) [Entitic vol]9.8 fLNormal9.0-12.7CSt. [facility] on above:Order Comment: Specimen Type: BLOOD SPECIMENOrdering Facility: [facility] Address:[address] [place] [address] Performed By: #### 96201-7 ####[facility] LABCLIA [id number] [place], [place] [address]Ohfwvdowm (Bld) [#/Vol]327 10*3/nZTviymi126-554IdhxldgktHolzer Hospital on above:Order Comment: Specimen Type: BLOOD SPECIMENOrdering Facility: [facility] Address:[address] [place], [place] [address]Performed By: #### 18164-5 ####[facility] LABIA [id number] [place], [place] [address]IRL (Bld) [#/Vol]4.25 10*6/uLNormal3.90-5.20[facility] on above:Order Comment: Specimen Type: BLOOD SPECIMENOrdering Facility: [facility] Address:[address] [place], [place] [address]Performed By: #### 31798-9 ####[facility] LABIA [id number] [place], [place] [address]LPT (Bld) [#/Vol]9.52 10*3/uLNormal3.70-11.00[facility] on above: Order Comment: Specimen Type: BLOOD SPECIMENOrdering Facility: [facility] Address:[address] [place], [place] [address]Performed By: #### 41099- 8 ####[facility] LABIA [id number] [place], [place] [address]BNFAQXli 89-69-2438AZJOWMJswgo (SP) Office ([place]) SANNA RENDON ([id number]) 1985 F Date Time Provider Department 10/28/24 2:30 PM KATHERINE NEGRETE During your visit today, we recorded the following information about you: Temperature Pulse Respiration Blood pressure 97 degrees 82/minute 16/minute 122/77 Weight Last Period 94.1 kg 10/28/24 Katherine Negrete APRN.RAND BUTTING MACHINE OPERATOR 10/29/2024 9:44 PM Signed NAME: Sanna Rendon CLINIC NO.: [id number] DATE OF SERVICE: October 28, 2024 ([place]elope) [...] later in 2018. These were found in [place], [place]. I don't have access to these [...] a target-like rash shortly before presenting to [facility] in 2016 with headaches and was [...] negative. Numbness and vi (more content not included)...NormalOhiohealth Van Wert Hospital Sisi 56-41-4624TUSUOcyboivwr (NCCAP) SANNA RENDON ([id number]) 1985 F Date Time Provider Department 10/28/24 [...] better of the plan of care. NELI uBck Holly, APRN.CNP 11/05/2024 12:33 PM Signed Spoke [...] recommended. 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 She denies further questions, [...] 05/28/2024 Encounter Status:Closed by RACHAEL JOHNSON on 11/05/24NormalCUniversity Hospitals Beachwood Medical Centerprehensive metabolic 2000 panelon 16-77-6691Anbpxxl [Mass/Vol]4.4 g/dLNormal3.9-4.9CSt. [facility] on above:Order Comment: Specimen Type: BLOOD SPECIMENOrdering Facility: [facility] Address:[address] [place], [place] [address]Performed By: #### 16743-7 ####[facility] LABCLIA [id number] [place], [place] [address]CVE [Catalytic activity/Vol]55 U/IDdssds50-728KpxmilafkHolzer Hospital on above:Order Comment: Specimen Type: BLOOD SPECIMENOrdering Facility: [facility] Address:[address] [place], [place] [address]Performed By: #### 08343-3 ####[facility] LABCLIA [id number] [place], [place] [address]XEX [Catalytic activity/Vol]18 U/LNormal7-38[facility] on above:Order Comment: Specimen Type: BLOOD SPECIMENOrdering Facility: [facility] Address:[address] [place], [place] [address]Performed By: #### 41752- 8 ####[facility] LABCLIA [id number] [facility] [place], [place] [address]Dlicn gap [Moles/Vol]12 mmol/LNormal8-15[facility] on above:Order Comment: Specimen Type: BLOOD SPECIMENOrdering Facility: [facility] Address:[address] [place], [place] [address]Performed By: #### 10790-5 ####[facility] LABCLIA [id number] [facility] [place], [place] [address]LRF [Catalytic activity/Vol]13 U/XNlrwxa55-90JgdjwlfioHolzer Hospital on above:Order Comment: Specimen Type: BLOOD SPECIMENOrdering Facility: [facility] Address:[address] [place], [place] [address]Performed By: #### 59883-1 ####[facility] LABCLIA [id number] [place] [address] Bilirubin [Mass/Vol]0.2 mg/dLNormal0.2-1.3CSt. [facility] Hospital on above:Order Comment: Specimen Type: BLOOD SPECIMENOrdering Facility: [facility] Address:[address] [place], [place] [address]Performed By: #### 92575-1 ####[facility] LABCLIA [id number] [facility]ERSEHON[facility] MEDICAL CENTERTEETEEFR[place], [place] [address]Tyktgfh [Mass/Vol]9.9 mg/dLNormal8.5-10.2CSt. [facility] Hospital on above:Order Comment: Specimen Type: BLOOD SPECIMENOrdering Facility: [facility] Address:[address] [place], [place] [address]Performed By: #### 79056-0 ####[facility] LABIA [id number] [place], [place] [address]Vufbiwuy [Moles/Vol]99 mmol/YFklvfq12-871FatdpiaruHolzer Hospital on above:Order Comment: Specimen Type: BLOOD SPECIMENOrdering Facility: [facility] Address:[address] [place], [place] [address]Performed By: #### 73827- 8 ####[facility] LABCLIA [id number] [place], [place] [address]VK6 [Moles/Vol]22 mmol/UGuhasx43-29QamsajjnbHolzer Hospital on above:Order Comment: Specimen Type: BLOOD SPECIMENOrdering Facility: [facility] Address:[address] [place], [place] [address]Performed By: #### 72276-6 ####[facility] LABCLIA [id number] [place], [place] [address]Bsfeamnzdi [Mass/Vol]0.60 mg/dL Normal0.58-0.96[facility] on above:Order Comment: Specimen Type: BLOOD SPECIMENOrdering Facility: [facility] Address:[address] [place], [place] [address]Performed By: #### 15532-2 ####[facility] LABCLIA [id number] [place], [place] [address]Rdqrozeyzx and Glomerular filtration rate.predicted panel (S/P/Bld)117 mL/min/1.73m???Normal>=60[facility] on above:Order Comment: Specimen Type: BLOOD SPECIMENOrdering Facility: [facility] Address:[address] [place], [place] [address]Result Comment: Estimated Glomerular Filtration Rate (eGFR) is [...] not accurately reflect actual GFR.Performed By: #### 24857-8 ####[facility] LABCLIA [id number] [place], [place] [address]Vzttfhm [Mass/Vol]101 mg/hLOifi81-99VtsbiubjpHolzer Hospital on above:Order Comment: Specimen Type: BLOOD SPECIMENOrdering Facility: [facility] Address:[address] [place] [address]Blxifw Comment: The [place] Diabetes Association (ADA) provides guidance for cutoff [...] Standards of Medical Care in Diabetes 2016, [place] Diabetes Association. Diabetes Care. 2016.39(Suppl 1).Performed By: #### 36481-8 ####[facility] LABCLIA [id number] [place], [place] [address]Ucodnpiit [Moles/Vol]3.5 mmol/LLow3.7-5.1CSt. [facility] Hospital on above:Order Comment: Specimen Type: BLOOD SPECIMENOrdering Facility: [facility] Address:[address] [place], [place] [address]Performed By: #### 10934-3 ####[facility] LABCLIA [id number] [place], [place] [address]Oznwnwr [Mass/Vol]7.6 g/dL Normal6.3-8.0[facility] on above:Order Comment: Specimen Type: BLOOD SPECIMENOrdering Facility: [facility] Address:[address] [place] [address]Fjddwrcjh By: #### 18603-3 ####[facility] LABCLIA [id number] [place] [address] Sodium [Moles/Vol]133 mmol/JEzz600-238TsfalqpvwHolzer Hospital on above:Order Comment: Specimen Type: BLOOD SPECIMENOrdering Facility: [facility] Address:[address] [place], [place] [address]Performed By: #### 20525-2 ####[facility] LABCLIA [id number] [place], [place] [address]Udes nitrogen [Mass/Vol]7 mg/dLNormal7-21Ohiohealth Van Wert HospitalComment on above:Order Comment: Specimen Type: BLOOD SPECIMENOrdering Facility: [facility] Address:[address] [place], [place] [address]Performed By: #### 72655-9 ####[facility] LABCLIA [id number] [place], [place] [address]Pgzvkehe SerPl-mCncon 47-57-2753Lrfenvzj [Mass/Vol]99.6 ng/lOKxoyne53.7-205.1CThe Jewish HospitalComascension providence hospital on above:Order Comment: Specimen Type: BLOOD SPECIMENOrdering Facility: [facility] Address:[address] [place], [place] [address]Performed By: #### 2276-4, 00396-2, 9, 3016-3 ####[facility] LABCLIA [id number] [place] [address] [place] AMERICAIron and Iron binding capacity panelon 02-60-6993Prvh [Mass/Vol]72 ug/bQYtvewn98-695YvoucrqpqOhiohealth Van Wert Hospital Comment on above:Order Comment: Specimen Type: BLOOD SPECIMENOrdering Facility: [facility] Address:[address] [place] [address] Performed By: #### 2276-4, 54391-0, 9, 3016-3 ####[facility] LABCLIA [id number] [place] [address] [place] AMERICAIron binding capacity [Mass/Vol]399 ug/wKPcjz369-662ZmqawumboOhiohealth Van Wert HospitalComascension providence hospital on above:Order Comment: Specimen Type: BLOOD SPECIMENOrdering Facility: [facility] Address:[address] [place], [place] [address]Performed By: #### 2276-4, 06769-3, 2131-12, 6-3 ####[facility] LABCLIA [id number] [address] [address] [place] [facility] MEDICAL CENTERIron/TIBC [Molar ratio]18.0 % Qzesho80.0-57.0[facility] on above:Order Comment: Specimen Type: BLOOD SPECIMENOrdering Facility: [facility] Address:[address] [place] [address] [place] [address]Performed By: #### 2276-4, 46738-9, 2131-12, 6-3 ####[facility] LABIA [id number] [place] [id number] [facility]MARYTSScripps [facility] 10-28-2024 Thyroid Stimulating (3Rd Generation) Hormone/ Tsh1.25[facility] SerPl-aCncon 06-13-8581XRY Qn1.250 m[IU]/LNormal 0.270-4.200[facility] on above:Order Comment: Specimen Type: BLOOD SPECIMENOrdering Facility: [facility] Address:[address] [place] [address] [place], [place] [address]Result Comment: If the patient is , TSH reference range varies by gestational period: First Trimester (weeks 9-12): 0.180-2.990 mIU/L Second Trimester: 0.110-3.980 mIU/L Third Trimester: 0.480-4.710 mIU/L Danny Varela et al. A Practical Approach for the Verifications and Determination of Site- and Trimester-Specific Reference Intervals for Thyroid Function tests in . Thyroid, 2019:29:3:412-420.Saeed E, et al. 2017 Guidelines of the [place] Thyroid Association for the Diagnosis and Management of Thyroid Disease during and the . Thyroid, 2017:27:3:315-389. Performed By: #### 2276-4, 20596-7, 9, 6-3 ####[facility] LABCLIA [id number] [address] [address] [facility] INFIRMARYVit B12 SerPl-mCncon 11-60-5485Ztweeuown (Vitamin B12) [Mass/Vol]483 pg/yNDztdyd218-0211SqmeckaxjSt. Vincent Hospital on above: Order Comment: Specimen Type: BLOOD SPECIMENOrdering Facility: [facility] Address:[address] [place], [place] [address]Performed By: #### 2276- 4, 79164-7, 2132-9, 3016-3 ####[facility] LABCLIA [id number] [facility] [id number] [place], [place] [address] [facility] OF AMERICACNPNon 76-09-4741YILHUkihtcuvb ([place]A) SANNA RENDON ([id number]) 1985 F Date Time Provider Department 10/24/24 [...] Date Reviewed: 08/26/2024 Reviewed by: Katherine Negrete APRN.RAND [employer]TING MACHINE OPERATOR - Fully Assessed Reason for Visit: [...] 05/28/2024 Encounter Status:Closed by KAUR DUNHAM on 10/24/24[facility] OB TRANSVAGINALon 72-48-9664BG OB TRANSVAGINALEXAM: US OB TRANSVAGINAL HISTORY: Viability, [...] II, MD, PHD at 21-Oct-2024 08:31:21 AM [facility] TeleradiologyNormalNot AvailableComment on above:Order Comment: US OB VIABILITY PLEASE PERFORM TRANSVAGINAL ULTRASOUND IF INDICATED No LMP recorded.ALL CBC WITH AUTO DIFFon 15-07-5934SQWEKHOSS ABSOLUTE IMHD7DWXB HealthcareBasophils/100 WBC (Bld)0.2 %0.2 - 2.0 %NOMS [...] HealthcareMCHC (RBC) [Mass/Vol] 34.6 g/dL29.9 - 35.2 g/dLNOOR HealthcareMCV (RBC) [Entitic vol]86.2 fL81.0 - 99.0 fLNOMS HealthcareMONOCYTES ABSOLUTE AUTO0.6NOMS HealthcareMonocytes/100 WBC (Bld)7.2 %1.7 - 12.0 %NOMS HealthcareNEUTROPHILS ABSOLUTE AUTO5.6NOEllett Memorial Hospital Neutrophils/100 WBC (Bld)62.8 %43.0 - 75.0 %NOMS HealthcarePlatelet mean volume (Bld) [Entitic vol]10.1 fL9.5 - 13.5 fLNOEllett Memorial HospitalTB EO #0NOEllett Memorial Hospital TBH KFH330PAEJWashington University Medical Center RBC4.42NOEllett Memorial HospitalTB WBC8.9NOEllett Memorial Hospital CLINISYNCDrug Screen, Urineon 15-37-0078Uqixtecbare/MethamphetamineNegative [facility] Hospitaledica Health SystemBarbituratesNegativeBrattleboro Memorial HospitalMedica Health System BenzodiazepinesNegativeProMedica Health SystemCocaine MetaboliteNegative ProMedica Health SystemEcstasyNegativeBrattleboro Memorial HospitalMedica Health SystemMethadoneNegative [facility] Hospitaledica Health SystemOpiatesNegativeBrattleboro Memorial HospitalMedica Health SystemOxycodoneNegative [facility] Hospitaledica Health SystemPhencyclidineNegativeBrattleboro Memorial HospitalMedica Health SystemThc Marijuana, UrineNegativeSelect Medical Specialty Hospital - Cantonca Health SystemHBV surface Ag IA Qlon 10-06-2024 Hepatitis B Surface AntigenNegativeMercy Health Defiance Hospital SystemHIV 1+2 Ab+HIV1 p24 Ag IA Qlon 40-35-4511BPD 1&2 AB/AGNegativeMercy Health Defiance Hospital SystemHemoglobin A1con 11-57-4000OfF3m (Bld) [Mass fraction]5.9 %4.0 - 6.0 %[facility] SystemNo Panel Informationon 90-52-1116CAKH HealthcareTSHon 58-15-7212Dpawbkp Stimulating (3Rd Generation) Hormone/ Tsh1.131[facility] SystemType and screenon 17-90-6952Vkm/Rh(D)NegativeProMiami Valley HospitalHCG ( test) Ql (U)on 68-82-9764Lurzkzbktvmnbd and review of laboratory resultsAbnormalSouthPointe Hospital Preg Test, UrPositiveNegativeSt. [facility] HealthcareUrinalysis macro (dipstick) panel (U)on 28-76-5806Ocnbdzljz, UANegativeNegative - 4(70) +++ mg/dL NOMS HealthcareBlood, [...] - 12 mg/dLNOMS HealthcareNOMS HealthcareUS OB TRANSVAGINALon 47-11-6918[place] [address] Ultrasound Report Signed Patient: SANNA RENDON MR#: [id number] : 1985 Acct:[id number] Age/Sex: 38 / F ADM Date: 09/11/24 Loc: US Attending Dr: Wilton Herrmann D.O. Ordering Physician: Wilton Herrmann D.O. Date of Service: 09/11/24 Procedure(s): US OB transvaginal Accession Number(s): [id number] cc: Wilton Herrmann D.O.; PENELOPE CASAS [place] [id number] Patient Name: SANNA RENDON MRN: [id number] date: 1985 Sex: F Assigned Patient Location: US Current Patient Location: US Accession/Order Number: [id number] Exam Date: 09/11/2024 11:34 Report Date: 09/11/2024 [...] Montano M.D. 09/11/2024 11:36 AM Dictation Location: [place] [address] Electronically authenticated by: [id number] Y Date: 09/11/2024 11:36 Dictated By: Prudence Montano M.D. Signed By: 09/11/24 1138 DD/ 1136 TD/TT: Podiatry Teacher:TBHRadiology, Radiologist, MD - 09/11/2024 [place] [address] Ultrasound Report Signed Patient: SANNA RENDON MR#: [id number] : 1985 Acct:[id number] Age/Sex: 38 / F ADM Date: 09/11/24 Loc: US Attending Dr: Wilton Herrmann D.O. Ordering Physician: Wilton Herrmann D.O. Date of Service: 09/11/24 Procedure(s): US OB transvaginal Accession Number(s): [id number] cc: Wilton Herrmann D.O.; PENELOPE CASAS [address] [address] Patient Name: SANNA RENDON MRN: [id number] date: 1985 Sex: F Assigned Patient Location: US Current Patient Location: US Accession/Order Number: [id number] Exam Date: 09/11/2024 11:34 Report Date: 09/11/2024 [...] Montano M.D. 09/11/2024 11:36 AM Dictation Location: [place] [id number] Electronically authenticated by: [id number] Y Date: 09/11/2024 11:36 Dictated By: Prudence Montano M.D. Signed By: 09/11/24 1138 DD/ 1136 TD/TT: Podiatry Teacher: SHILOH HealthcareRadiology Study observation (narrative)[facility] OB TRANSVAGINALOrdered By: Radiologist Radiology on 10-20-6081[facility] Work Phone: bhcg Quanton 22-33-9195MWP.beta subunit Dh61381 m[IU]/mLHigh1-3[facility] BaltimoreComment on above:Result Comment: 'F NON < 1 - 3' ' 0.2 - 1 WEEK = 5 TO 50' ' 1 - 2 WEEKS = 50 - 500' ' 2 - 3 WEEKS = 100 - 5000' ' 3 - 4 WEEKS = 500 - 95831' ' 4 - 5 WEEKS = 1000 - 16813' ' 5 - 6 WEEKS = 64933 - 144424' ' 6 - 8 WEEKS = 77827 - 896129' ' 8 - 12 WEEKS = 25161 - 703236'Performed By: #### [id number] #### [facility] [address] [place], [place] [address]Igfcvohafy Visit Summaryon 65-97-5733Psbdgsbqfg Visit Summary Ambulatory Visit Summary SANNA RENDON :1985 Visit Date:09/07/2024 Ambulatory Visit Instructions Your Diagnosis Viral URI with cough Cough Your Care Team Attending Physician - Romulo Chiu PA-C Primary Care Physician - Penelope CASAS DO, FAAFP This Is Your Medications List Contact prescribing physician if questions or concerns enoxaparin (Lovenox 40 mg/0.4 mL Injection) ergocalciferol (Vitamin D) fluticasone nasal (Flonase 0.05 mg/inh Beltrami) levothyroxine (levothyroxine 25 mcg (0.025 mg) Tab) [...] With: Penelope CASAS DO, FAAFP Where: [facility] [address] [facility] [address], [place] [address]- Medications What How Much When Instructions Unchanged enoxaparin (Lovenox 40 mg/ 0.4 mL Injection) 40 Milligram Subcutaneous Every 24 hours Contact prescribing physician if questions or concerns Unchanged ergocalciferol (Vitamin D) 2,000 International unit By Mouth Every week Contact prescribing physician if questions or concerns Unchanged fluticasone nasal (Flonase 0.05 mg/ inh Beltrami) 2 Sprays Nasal Inhalation Every day each [...] you for choosing us for your care. [facility] Medicine Office/Clinic Noteon 54-63-9673Oownbk Medicine Office/Clinic NoteEs[facility] Office/Clinic Note Chief Complaint cough, [...] created with voice recognition software. Occasional wrong-word or???jnfbd-f-ykjk??? substitutions may have occurred due to the [...] days ago on Sunday. Has been using gobf-iab-winolhq cough drops and Flonase for her allergies. [...] duration. Discussed antibiotics un (more content not included)...[facility] HospitalComment on above:Result Comment: Electronically Signed By: Aram QUINTEROS, Romulo Lynn\.br\Date and Time Signed: 09/07/2509:46 EDTCNPNon 10-92-6278DIZHRnqmtttlc (HEMASA) SANNA RENDON ([id number]) 1985 F Date Time Provider Department 09/02/24 [...] Date Reviewed: 08/26/2024 Reviewed by: Katherine Negrete APRN.RAND BUTTING MACHINE OPERATOR - Fully Assessed Reason for Visit: [...] 05/28/2024 Encounter Status:Closed by RACHAEL JOHNSON on 09/03/24[facility] Quanton 93-87-6084ZRN.beta subunit Qn558 m[IU]/mLHigh1-3[facility] Hospital Of BaltimoreComment on above:Result Comment: 'F NON < 1 - 3' ' 0.2 - 1 WEEK = 5 TO 50' ' 1 - 2 WEEKS = 50 - 500' ' 2 - 3 WEEKS = 100 - 5000' ' 3 - 4 WEEKS = 500 - 89126' ' 4 - 5 WEEKS = 1000 - 23878' ' 5 - 6 WEEKS = 02685 - 836908' ' 6 - 8 WEEKS = 52428 - 064815' ' 8 - 12 WEEKS = 20643 - 749975'Performed By: #### [id number] #### [facility] [address] [place], [place] [address]RbHT Quanton 21-73-3404BXA.beta subunit Qn188 m[IU]/mLHigh1-3 [facility] HospitalComment on above:Result Comment: 'F NON < 1 - 3' ' 0.2 - 1 WEEK = 5 TO 50' ' 1 - 2 WEEKS = 50 - 500' ' 2 - 3 WEEKS = 100 - 5000' ' 3 - 4 WEEKS = 500 - 70827' ' 4 - 5 WEEKS = 1000 - 61884' ' 5 - 6 WEEKS = 41824 - 153414' ' 6 - 8 WEEKS = 30616 - 993148' ' 8 - 12 WEEKS = 15895 - 424017'Performed By: #### [id number] #### [facility] [address], [place] [address]MJVEib 82-83-3705JEUZBtzbkggqi (HEMASA) SANNA REDNON ([id number]) 1985 F Date Time Provider Department 08/26/24 [...] Date Reviewed: 08/26/2024 Reviewed by: Katherine Negrete APRN.RAND BUTTING MACHINE OPERATOR - Fully Assessed Reason for Visit: Lab Orders [1688] Primary Visit Diagnosis:Antiphospholipid antibody positive [R76.0] Other Visit Diagnoses: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] Malaise and fatigue [R53.81, R53.83] Vitamin D deficiency [E55.9] Order(s):COMPLETE BLOOD COUNT AND DIFFERENTIAL [SQCBCDIF] Order #: [id number] FUTURE COMPREHENSIVE METABOLIC PANEL [SQCMP] Order #: [id number] FUTURE THYROID STIMULATING HORMONE [SQTSH] Order #: [id number] FUTURE IRON AND TIBC [SQIRON] Order #: [id number] FUTURE FERRITIN [SQFERR] Order #: [id number] FUTURE VITAMIN D 25 HYDROXY [SQVITD] Order #: [id number] FUTURE VITAMIN B12 [SQB12] Order #: [id number] FUTURE Prescriptions as of 08/26/2024 - enoxaparin [...] 05/28/2024 Encounter Status:Closed by KATHERINE NEGRETE on 08/26/24[facility] Quanton 61-69-2334OHA.beta subunit Qn83 m[IU]/mLHigh1-3FAultman Orrville HospitalComment on above:Result Comment: 'F NON < 1 - 3' ' 0.2 - 1 WEEK = 5 TO 50' ' 1 - 2 WEEKS = 50 - 500' ' 2 - 3 WEEKS = 100 - 5000' ' 3 - 4 WEEKS = 500 - 18050' ' 4 - 5 WEEKS = 1000 - 62250' ' 5 - 6 WEEKS = 91048 - 389402' ' 6 - 8 WEEKS = 52721 - 559500' ' 8 - 12 WEEKS = 49773 - 922019'Performed By: #### [id number] #### [facility] [address], [place] [address]YeWK Quanton 77-49-5972SOA.beta subunit Qn22 m[IU]/mLHigh1-3 [facility] HospitalComment on above:Result Comment: 'F NON < 1 - 3' ' 0.2 - 1 WEEK = 5 TO 50' ' 1 - 2 WEEKS = 50 - 500' ' 2 - 3 WEEKS = 100 - 5000' ' 3 - 4 WEEKS = 500 - 91757' ' 4 - 5 WEEKS = 1000 - 72450' ' 5 - 6 WEEKS = 92968 - 519010' ' 6 - 8 WEEKS = 67398 - 641490' ' 8 - 12 WEEKS = 82503 - 439994'Performed By: #### [id number] #### [facility] [address], [place] [address]VZLSDCZBZJitubsd By: SYSTEM SYSTEM on 61-15-4335KCX.beta subunit Qn22 m[IU]/mLHigh1 - 3 mIU/mLRemisol ChemComment on above:Result Comment: 'F NON < 1 - 3' ' 0.2 - 1 WEEK = 5 TO 50' ' 1 - 2 WEEKS = 50 - 500' ' 2 - 3 WEEKS = 100 - 5000' ' 3 - 4 WEEKS = 500 - 87807' ' 4 - 5 WEEKS = 1000 - 34287' ' 5 - 6 WEEKS = 19522 - 471546' ' 6 - 8 WEEKS = 68999 - 854641' ' 8 - 12 WEEKS = 66105 - 569742'TSH Qn1.86 m[IU]/LNormal0.34 - 5.60 mcIU/mLRemisol ChemTSHon 68-28-5344LDR Qn1.86 m[IU]/LNormal0.34-5.60St. [facility]'S HospitalComment on above:Performed By: #### [id number] #### [facility] [address], [place] [address]FFO ( test) Ql (U)on 16-07-7378Pvryxojugrdcmb and review of laboratory resultsNoGeisinger-Lewistown HospitalPreg Test, UrNegativeNegative [facility].Interpretation:on 81-20-6056JVE Ab IA QlComment Invalid Interpretation [facility] Healthcare SystemComment on above:Result Comment: Not infected with HCV unless early or acute infection is suspected (which may be delayed in an immunocompromised individual), or other evidence exists to indicate HCV infection. Performed at: [address] [id number] PhD Jd Garciaformed By: #### [id number] #### [facility] [address], [place] [address]WNL Antibody RFX to Quant PCRon 06-71-0472HTI Ab IA Ql Non-ReactiveInvalid Interpretation CodeNon ReactiveSt. Rita'S Hospital Comment on above:Result Comment: Performed at: [address] [id number] PhD Jd Garciaformed By: #### [id number] #### [facility] [address], [place] [address]ZYI Screen 4th Generation wRfxon 97-45-0543WIU 1+2 Ab+HIV1 p24 Ag IA QlNon-ReactiveInvalid Interpretation CodeNon ReactiveSt. Rita'S HospitalComment on above:Result Comment: HIV-1/HIV-2 antibodies and HIV-1 p24 antigen were NOT detected. There is no laboratory evidence of HIV infection. HIV Negative Performed at: [address] [id number] PhD Jd Garciaformed By: #### [id number] #### [facility] [address], [place] [address]Rag Be Agon 34-26-6912PCQ e Ag IA QlNegativeInvalid Interpretation CodeNegativeSt. Rita'S HospitalComment on above:Result Comment: Performed at: [address] [id number] PhD Jd Garciaformed By: #### [id number] #### [facility] [address], [place] [address]Qtc Bs Agon 25-86-5483KOF surface Ag IA QlNegativeInvalid Interpretation CodeNegativeSt. Rita'S HospitalComment on above:Result Comment: Performed at: [address] [id number] PhD Jd Garciaformed By: #### [id number] #### [facility] [address], [place] [address]OYTGBIGDYGlqvomf By: SYSTEM SYSTEM on 98-13-3130Ambztot [Mass/Vol]5.0 g/dLNormal3.3 - 5.0 gm/dLRemisol ChemAlbumin/Globulin [Mass ratio] 1.6 {ratio}Normal1.1 - 2.2Remisol ChemALP [Catalytic activity/Vol]49 [iU]/d Erhccc70 - 98 Int._Unit/LRemisol ChemALT No additional P-5'-P [Catalytic activity/Vol]18 [iU]/dNormal6 - 46 Int._Unit/LRemisol ChemAnion gap [Moles/Vol] 13 mmol/LNormal6 - 16 mEq/LRemisol ChemAST [Catalytic activity/Vol]15 [iU]/d Normal5 - 43 Int._Unit/LRemisol ChemBilirubin [Mass/Vol]0.4 mg/dLNormal0.0 - 1.1 mg/dLRemisol ChemCalcium [Mass/Vol]10.0 mg/dLNormal8.9 - 11.1 mg/dLRemisol Chem Chloride [Moles/Vol]100 mmol/JHfm102 - 111 mmol/LRemisol ChemCO2 [Moles/Vol]25 mmol/SDnxjmn40 - 31 mmol/LRemisol ChemCreatinine [Mass/Vol]0.7 mg/dLNormal0.5 - 1.3 mg/dLRemisol DbhesXXE887 mL/min/1.73 q0Rjreur>=59mL/min/1.73 v1Poqcjyw Chem Globulin (S) [Mass/Vol]3.1 g/dLNormal1.4 - 4.0 gm/dLRemisol ChemGlucose [Mass/Vol]82 mg/qBIqcxmh70 - 199 mg/dLRemisol ChemPotassium [Moles/Vol]3.8 mmol/LNormal3.5 - 5.3 mmol/LRemisol ChemProtein [Mass/Vol]8.1 g/dLHigh6.0 - 7.8 gm/dLRemisol ChemSodium [Moles/Vol]134 mmol/LRsh817 - 145 mmol/LRemisol ChemUrea nitrogen [Mass/Vol]7 mg/dLNormal5 - 21 mg/dLRemisol ChemUrea nitrogen/Creatinine [Mass ratio]10 mg/irGyjirm92 - 20Remisol ChemCMPon 39-53-2688Gsgweyj [Mass/Vol]5.0 g/dLNormal3.3-5.0[facility] Comment on above:Performed By: #### [id number] #### [facility] [address] [place], [place] [address]Mlwnvvb/Globulin (S) [Mass conc ratio]1.3Hagcxz6.1-2.2FAultman Orrville HospitalComment on above:Performed By: #### [id number] #### [facility] [address] [place] [address]APV [Catalytic activity/Vol]49 Int._Unit/FMcrkff74-43YzszkdSt. Rita'S HospitalComment on above:Performed By: #### [id number] #### [facility] [address], [place] [address]DFO No additional P-5'-P [Catalytic activity/Vol]18 Int._Unit/L Normal6-46St. Rita'S HospitalComment on above:Performed By: #### [id number] #### [facility] [address] [place] [address]Hrrqe gap [Moles/Vol]13 mmol/LNormal6-16St. Rita'S HospitalComment on above:Performed By: #### [id number] #### [facility] [address] [place] [address] 46771PDJ [Catalytic activity/Vol]15 Int._Unit/LNormal5-43St. Rita'S HospitalComment on above:Performed By: #### [id number] #### [facility] [address] [place] [address]Mizbsisjw [Mass/Vol]0.4 mg/dLNormal0.0-1.1FAultman Orrville HospitalComment on above:Performed By: #### [id number] #### [facility] [address] [place] [address]Mmmhkqi [Mass/Vol]10.0 mg/dLNormal8.9-11.1FAultman Orrville HospitalComment on above:Performed By: #### [id number] #### [facility] [address] [place] [address]Ovulskrh [Moles/Vol]100 mmol/ZGbg641-284HrzaedSt. Rita'S HospitalComment on above:Performed By: #### [id number] #### [facility] [address] [place] [address] 23493HF4 [Moles/Vol]25 mmol/XZdklrf80-86GoiydiSt. Rita'S Hospital Comment on above:Performed By: #### [id number] #### [facility] [address], [place] [address]Vccavfnmwa [Mass/Vol]0.7 mg/dLNormal0.5-1.3FAultman Orrville HospitalComment on above:Performed By: #### [id number] #### [facility] [address], [place] [address]Wznazidj (S) [Mass/Vol]3.1 g/dLNormal1.4-4.0St. Rita'S HospitalComment on above:Performed By: #### [id number] #### [facility] [address], [place] [address]Iegbdky [Mass/Vol]82 mg/uJWjxiff74-351AfglmqSt. Rita'S HospitalComment on above:Performed By: #### [id number] #### [facility] [address], [place] [address]Hckzivnwf [Moles/Vol]3.8 mmol/LNormal3.5-5.3FAultman Orrville HospitalComment on above:Performed By: #### [id number] #### [facility] [address], [place] [address]Yyoayou [Mass/Vol]8.1 g/dLHigh6.0-7.8St. Rita'S HospitalComment on above:Performed By: #### [id number] #### [facility] [address], [place] [address]Otkaxl [Moles/Vol]134 mmol/KVii701-986YprmxySt. Rita'S HospitalComment on above:Performed By: #### [id number] #### [facility] [address], [place] [address]Zwqi nitrogen [Mass/Vol]7 mg/dLNormal5-21St. Rita'S HospitalComment on above:Performed By: #### [id number] #### [facility] [address], [place] [address]Nafd nitrogen/Creatinine [Mass ratio]10 No QmxswDymdne59-64 St[address] Rita'S HospitalComment on above:Performed By: #### [id number] #### [facility] [address] [place], [place] [address]jLIQed 40-65-5088qKTP276 mL/min/1.73 l0Exykuk>=59Fishamadou Sinai Hospital Of BaltimoreComment on above:Performed By: #### [id number] #### [facility] [address] [facility] [address] [place], [place] [address]Sfgrsg Medicine Office/Clinic Noteon 61-30-4784Mtyrls Medicine Office/Clinic NoteFami Medicine Office/Clinic Note HPI [...] RESENDEZ FAAFP, Penelope Tony, FAM, PED [address] [facility] [address] [facility] [address], [place] [address]- Additional Instructions: Patient Education Bradycardia, [...] exam Historical Abdominal pain (more content not included)...[facility] Comment on above:Result Comment: Electronically Signed By: Inez Banegas\.br\Date and Time Signed: 07/08/24 08:54 EDTAmbulatory Visit Summaryon 89-19-5495Xbvavzziod Visit SummaryAmbulatory Visit Summary SANNA RENDON :1985 [...] mg Tab) fluticasone nasal (Flonase 0.05 mg/inh Beltrami) levothyroxine (levothyroxine 25 mcg (0.025 mg) Tab) [...] With: Penelope CASAS DO, FAAFP Where: [facility] [address] [place] [address]- You Need to Schedule the Following Appointments Follow Up with Penelope CASAS DO, FAAFP, FAM, PED When: Where: [address] [place] [address]- Medications What How Much When Why Instructions [...] Unchanged fluticasone nasal (Flonase 0.05 mg/ inh Beltrami) 2 Sprays Nasal Inhalation Every day each [...] you for choosing us for your care. [facility] HospitalBhG Quanton 70-06-3995DVC.beta subunit Qn1 m[IU]/mLNormal1-3[facility] BaltimoreComment on above:Result Comment: 'F NON < 1 - 3' ' 0.2 - 1 WEEK = 5 TO 50' ' 1 - 2 WEEKS = 50 - 500' ' 2 - 3 WEEKS = 100 - 5000' ' 3 - 4 WEEKS = 500 - 61227' ' 4 - 5 WEEKS = 1000 - 94865' ' 5 - 6 WEEKS = 33486 - 968728' ' 6 - 8 WEEKS = 02512 - 585548' ' 8 - 12 WEEKS = 76778 - 268669'Performed By: #### [id number] #### [facility] [address], [place] [address]ZFWHW 2 Mutationson 95-76-8754BYLXR InterpretationSee Note Community HospitalComment on above:Result Comment: Indication for testing: Determine genetic contribution to hyperhomocysteinemia. 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 The [employer] Practice Guidelines indicate [...] a contributing factor to hyperhomocysteinemia. Variants Tested: c.665C>T(p.Xoy679Vur) and c.1286A>C(p.Wzv507Spl). (legacy names C677T and V8511G, respectively). Clinical Sensitivity: Undefined; hyperhomocysteinemia is caused [...] developed and its performance characteristics determined by [facility]. It has not been cleared or approved by the US Food and Drug Administration. This test was performed in a CLIA certified laboratory and is intended for clinical purposes. Counseling and informed consent are recommended for genetic testing. Consent forms are available online. Performed By: [facility] [address] [place] [address] Cover Remover: Yayo Moncada MD, PhD CLIA Number: [id number] Mutation: Q8316CTexomekvruHqnfniQsxidCommunity HospitalMTHFR Mutation: H185TJyiaxtedHtwfafXsymxCommunity Hospital MTHFR PCR SpecimenWhole BloodNormParkview Medical CenterAnti-nuclear Ab (NASEEM) Reflexon 97-19-9937Bjqw-Nuclear Ab (NASEEM), IgG by ELISANot detectedNormal None DetProwers Medical CenterComment on above:Result Comment: If suspicion of connective tissue disease is strong and NASEEM EIA is negative, consider testing for NASEEM by IFA ([id number]). No antibodies to Anti-Nuclear Antibodies (NASEEM) detected. The Extractable Nuclear Antigen Antibodies (FINANCIAL COUNSELOR, Christianson, SSA 52, SSA 60, Scleroderma, Brianna-1 [...] dsDNA, histones, SS-A (Ro), SS-B (La), Christianson, Christianson/FINANCIAL COUNSELOR, Scl-70, Brianna-1, centromeric proteins, other antigens extracted from the HEp-2 cell nucleus. NASEEM ALEX assays have been reported to have lower sensitivities than NASEEM IFA for systemic autoimmune rheumatic diseases (SARD). Negative results do not necessarily rule out SARD. 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 Performed By: [facility] [address] [place], [place] [id number] Cover Remover: Yayo Moncada MD, PhD CLIA Number: [id number] and SSB Abs, IgGon 65-38-6199MLN 52 (Ro) (KELLEN) Ab, IgG1 AU/mLNormal0-40[facility] HospitalComment on above:Result Comment: INTERPRETIVE INFORMATION: SSA-52 [...] interstitial lung disease.SSB (La) (KELLEN) Ab, IgG0 AU/mLNormal0-40[facility] Comment on above:Result Comment: INTERPRETIVE INFORMATION: [...] (PSS) also have this antibody. Performed By: [facility] [address] [id number] Cover Remover: Yayo Moncada MD, PhD CLIA Number: [id number] Antibodies, IgG/IgMon 90-39-9496Hdadspyjuxp Ab IgG95 GPLCritically high<=14[facility] Behavioral HospitalComment on above: Result Comment: INTERPRETIVE INFORMATION: [...] other criteria phospholipid antibody tests. Performed by [facility], [address] [place] [address] [email or web address], Zhang Bledsoe MD, Lab. Director IA Number: [id number] Ab IgM<10Normal<=12[facility] HospitalComment on above:Result Comment: INTERPRETIVE INFORMATION: Anti- [...] other criteria phospholipid antibody tests. Performed by [facility], [address] [place] [address] [email or web address], Zhang Bledsoe MD, Lab. Director CLIA Number: [id number] (Smooth Muscle) Antibody, IgAon 05-70-9994Q-Actin Ab, IgA1.8 UnitsNormal0.0-24.9[facility] HospitalComment on above: Result Comment: INTERPRETIVE INFORMATION: F-Actin (Smooth Muscle)Antibody, IgA 20.0 Units or less.....Negative 20.1 - 24.9 Units......Equivocal 25.0 Units or greater..Positive The presence of IgA antibodies against F-Actin in patients having positive serologic markers for celiac disease, such as antiendomysial, anti-transglutaminase, and/or anti-gliadin peptide IgA, indicates the presence of intestinal villus atrophy. Positive results should be confirmed with biopsy. Performed By: [facility] [address] [place] [address] Cover Remover: Yayo Moncada MD, PhD CLIA Number: [id number] Ab, IgG by ELISAon 24-99-3457nnCDO Ab, IgG by ALEX 4 IUNormal0-24[facility] HospitalComment on above:Result Comment: INTERPRETIVE INFORMATION: Double-Stranded DNA (dsDNA) Ab IgG ALEX 24 IU or less........Negative 25-30 IU.............Borderline Positive 30-60 IU.............Low Positive 60-200 IU............Positive 201 IU or greater....Strong Positive Positivity for anti-double stranded DNA (anti-dsDNA) IgG antibody is a diagnostic criterion of systemic lupus erythematosus (SLE). Specimens are initially screened by enzyme-linked immunosorbent assay (ALEX). If ordered as reflex ([id number]), positive ALEX results (>24 IU) will be [...] recommendations for testing may be found at [email or web address]-[email or web address]-[email or web address]. Performed by [facility], [address] [place] [address],[place] [address] [email or web address], Zhang Bledsoe MD, Lab. Director CLIA Number: [id number] Proteinon 65-32-3758DOZ [Mass/Vol]mg/LNormal 0.0-5.0[facility] HospitalComment on above:Performed By: #### CRP #### [facility] [address] [place] [address] Fiuzugharilpf Rateon 18-12-1982Ctnaydvveorkl Rate18 mmNormal0-20 [facility] HospitalComment on above:Result Comment: ESR Units mm/Hr Performed By: #### ESR #### [facility] [address] [place] [address] Jjdruo Medicine Office/Clinic Noteon 32-53-0929Ugzdza Medicine Office/Clinic NoteFalawrence f. quigley [facility] Medicine Office/Clinic Note Chief Complaint [...] of skin) Neurology FU tomorrow w Dr Mogne tomorrow: Pt refuses ED Pt back to [...] bedtime), # 90 tab(s), Refills(s) 4, Pharmacy: [facility] 1985, 168, cm, 06/30/24 8:36:00 EST, Height/Length Dosing, 97.2, kg, 06/30/24 8:36:00 EST, Weight Dosing Total time spent preparing the chart, conducting of the encounter with the patient and family and time spent documenting, reviewing, and ordering tests was 25 minutes. Follow-up With When Contact Information Penelope CASAS DO, FAAFP, CHRIS, PED In 2 months [address], [place] [address]- (419 (more content not included)...[facility] Comment on above:Result Comment: Electronically Signed By: Penelope CASAS DO, FAAFP\.br\Date and Time Signed: 06/30/24 09:24 ESTRECURRENT VAGINITIS (HTRX)on 96-29-8470OXCLKAIZD KPUVREE6TBFH HealthcareATOPOBIUM VAGINAENot detectedNOMS HealthcareBVAB 2,3 (BACTERIAL VAGINOSIS ASSOCIATED BACTERIA 2, 3); MOBILUNCUS [id number] HealthcareBVAB 2,3 (BACTERIAL VAGINOSIS ASSOCIATED BACTERIA 2, 3); MOBILUNCUS SPPNot detectedNOMS HealthcareCANDIDA ALBICANS, PARAPSILOSIS, [id number] HealthcareCANDIDA ALBICANS, PARAPSILOSIS, TROPICALISNot detected NOMS HealthcareCANDIDA UUDUPCWE0BCJZ HealthcareCANDIDA GLABRATANot detectedNOMS HealthcareCANDIDA DHILIK8TFSZ HealthcareCANDIDA KRUSEINot detectedNOMS HealthcareCHLAMYDIA IZNBPRESBIS2NUIZ HealthcareCHLAMYDIA TRACHOMATISNot detected NOMS HealthcareGARDNERELLA SBGANJTBP8AIOW HealthcareGARDNERELLA VAGINALISNot detectedNOMS HealthcareMEGASPHAERA (TYPES 1, 2)0NOMS HealthcareMEGASPHAERA (TYPES 1, 2)Not detectedNOMS HealthcareMYCOPLASMA MKQQGDFNJU3ZCXE Healthcare MYCOPLASMA GENITALIUMNot detectedNOMS HealthcareNEISSERIA OHAYGOUDJPH9VELC HealthcareNEISSERIA GONORRHOEAENot detectedNOMS HealthcareTRICHOMONAS VAGINALIS0 NOMS HealthcareTRICHOMONAS VAGINALISNot detectedNOMS HealthcareNOMS Healthcare Urinalysis macro (dipstick) panel (U)on 06-37-1699Hfarpuied, UANegativeNegative - 4(70) +++ mg/dLNOMS HealthcareBlood, UANegativeNegative [...] - 12 mg/dLNOMS HealthcareNOMS HealthcareAmbulatory Visit Summaryon 50-80-7664Whekfjmxlr Visit SummaryAmbulatory Visit Summary SANNA RENDON :1985 [...] (Vitamin D) fluticasone nasal (Flonase 0.05 mg/inh Beltrami) levothyroxine (levothyroxine 25 mcg (0.025 mg) Tab) [...] With: Penelope CASAS DO, FAAFP Where: [facility] [address] [place] [address] [place] [address]- Medications What How Much When Why Instructions New azithromycin (Zithromax 250 mg Tab) 1 Packets By Mouth As Directed Sinusitis Duration: 5 Days Refills: 1 as directed on package labeling Pickup at [facility] 1985 New fluconazole (Diflucan 150 mg Tab) 1 Tablets By Mouth Every 7 days Yeast infection Refills: 1 Pickup at [facility] 1985 Unchanged enoxaparin (Lovenox 40 mg/ 0.4 mL Injection) 40 Milligram Subcutaneous Every 24 hours Contact prescribing physician if questions or concerns Unchanged ergocalciferol (Vitamin D) 2,000 International unit By Mouth Every week Contact prescribing physician if questions or concerns Unchanged fluticasone nasal (Flonase 0.05 mg/ inh Beltrami) 2 Sprays Nasal Inhalation Every day each [...] physician if questions or concerns Pharmacy Information [facility]: [address] [facility] [address] [facility] [address] [place], [place] [id number] [phone] Allergies Milk Products (Illness) ciprofloxacin (Numbness and [...] you for choosing us for your care. [facility] Medicine Office/Clinic Noteon 27-85-6691Rmbqrb Medicine Office/Cl[facility] NoteEs[facility] Office/Clinic Note Chief Complaint Sinus [...] day(s), # 6 tab(s), Refills(s) 1, Pharmacy: [facility] 1985, 168, cm, 06/09/24 14:03:00 EST, Height/Length Dosing, 98.4, kg, 06/19/24 16:19:00 EST, Weight Dosing Yeast infection (B37.9: Candidiasis, unspecified) Ordered: fluconazole, 150 mg = 1 tab(s), Oral, q7day, # 4 tab(s), Refills(s) 1, Pharmacy: [facility] 1985, 168, cm, 06/09/24 14:03:00 [...] Oral, q7day, 1 refills Flonase 0.05 mg/inh Beltrami, 2 spray(s), Nasal, Daily, 11 refills levothyroxine [...] Given Patient Refuses influe (more content not included)...NormalSt. Rita'S HospitalComment on above:Result Comment: Electronically Signed By: MANDI BRYANT\.br\Date and Time Signed: 06/19/24 16:37 ESTCBC w/ Auto Diffon 06-12-2024 Basophils/100 WBC (Bld)0.3 %Normal0.0-2.0St. Rita'S HospitalComment on above:Performed By: #### [id number] #### [facility] [address], [place] [address]Crieyhysw/Leukocytes Auto (Bld) [Pure # fraction]0.0 E9/LNormal 0.0-0.2FAultman Orrville HospitalComment on above:Performed By: #### [id number] #### [facility] [address], [place] [address]Dnntysinrrv (Bld) [#/Vol]0.0 E9/LNormal0.0-0.5FAultman Orrville HospitalComment on above:Performed By: #### [id number] #### [facility] [address], [place] [address]Tccavhoguli/100 WBC (Bld)0.3 %Normal0.0-8.0St. Rita'S HospitalComment on above:Performed By: #### [id number] #### [facility] [address], [place] [address]Ycvqmynqlrw distribution width (RBC) [Ratio]14.0 %Normal 10.9-14.2FAultman Orrville HospitalComment on above:Performed By: #### [id number] #### [facility] [address] [place] [address]Qgxkeqjpzn (Bld) [Volume fraction]40.9 %Cvovxp41.0-46.0St. Rita'S HospitalComment on above:Performed By: #### [id number] #### [facility] [address] [place] [address] 81217Cznsmqtqqp (Bld) [Mass/Vol]13.9 g/bLRqixvy23.0-16.0St. [facility]'S HospitalComment on above:Performed By: #### [id number] #### [facility] [address] [place] [address] 98[address]Wzvrmdtpekx (Bld) [#/Vol]2.8 E9/LNormal1.0-4.0St. Rita'S HospitalComment on above:Performed By: #### [id number] #### [facility] [address] [place] [address]Perjsrervbl/100 WBC (Bld)24.6 %Keshfa97.0-50.0St. Rita'S HospitalComment on above:Performed By: #### [id number] #### [facility] [address] [place] [address]76[address]DFT (RBC) [Entitic mass]30.7 ggDrqvgo57.0-34.0St. [facility]'S HospitalComment on above:Performed By: #### [id number] #### [facility] [address] [place] [address]IEQG (RBC) [Mass/Vol]33.9 g/mXKdvsdg32.4-36.0St. Rita'S HospitalComment on above:Performed By: #### [id number] #### [facility] [address] [place] [address] 33221RUX (RBC) [Entitic vol]90.6 mFEsyxkd69.0-100.0St. [facility]'S HospitalComment on above:Performed By: #### [id number] #### [facility] [address] [place] [address] 43745Ntnuuqswm (Bld) [#/Vol]0.6 E9/LNormal0.2-1.0St. Rita'S HospitalComment on above:Performed By: #### [id number] #### [facility] [address] [place] [address]Tckoyhhmorn (Bld) [#/Vol]8.0 E9/LHigh2.0-7.5FAultman Orrville HospitalComment on above:Performed By: #### [id number] #### [facility] [address] [place] [address]Vdrwcntbycv/100 WBC (Bld)69.6 %Yxgcxx68.0-75.0St. Rita'S HospitalComment on above:Performed By: #### [id number] #### [facility] [address] [place] [address]38[address]Nwmbfjpg461.0 E9/SAmeggh572.0-500.0[facility] Comment on above:Performed By: #### [id number] #### [facility] [address] [place] [address]67[address]Wzdikoon mean volume (Bld) [Entitic vol]8.2 fLNormal6.4-10.8 [facility]'S HospitalComment on above:Performed By: #### [id number] #### [facility] [address] [place] [address]NNA (Bld) [#/Vol]4.5 E12/LNormal4.3-5.9St. [facility]'S HospitalComment on above:Performed By: #### [id number] #### [facility] [address], [place] [address]LVE corrected for nucl RBC Auto (Bld) [#/Vol]11.5 E9/LHigh 4.0-11.0St. Rita'S HospitalComment on above:Performed By: #### [id number] #### [facility] [address], [place] [address]KOICYWGLKFUtystfh By: SYSTEM SYSTEM on 72-33-6704Ghtbgsnml/100 WBC (Bld)0.3 %Normal0.0 - 2.0 %Remisol HemeBasophils/Leukocytes Auto (Bld) [Pure # fraction]0.0 E9/LNormal0.0 - 0.2 E9/LRemisol HemeEosinophils (Bld) [#/Vol]0.0 E9/LNormal0.0 - 0.5 E9/LRemisol HemeEosinophils/100 WBC (Bld)0.3 %Normal0.0 - 8.0 %Remisol HemeErythrocyte distribution width (RBC) [Ratio]14.0 %Fvjxcn32.9 - 14.2 %Remisol HemeHematocrit (Bld) [Volume fraction]40.9 %Gkcpli52.0 - 46.0 % Remisol HemeHemoglobin (Bld) [Mass/Vol]13.9 g/iKUetmqt72.0 - 16.0 gm/dLRemisol HemeLymphocytes (Bld) [#/Vol]2.8 E9/LNormal1.0 - 4.0 E9/LRemisol Heme Lymphocytes/100 WBC (Bld)24.6 %Usvggz65.0 - 50.0 %Remisol HemeMCH (RBC) [Entitic mass]30.7 hnIpcxrh12.0 - 34.0 pgRemisol HemeMCHC (RBC) [Mass/Vol]33.9 g/dL Ijdzxk25.4 - 36.0 gm/dLRemisol HemeMCV (RBC) [Entitic vol]90.6 jTIivwbx10.0 - 100.0 fLRemisol HemeMonocytes (Bld) [#/Vol]0.6 E9/LNormal0.2 - 1.0 E9/LRemisol HemeMonocytes/100 WBC (Bld)5.2 %Normal4.0 - 14.0 %Remisol HemeNeutrophils (Bld) [#/Vol]8.0 E9/LHigh2.0 - 7.5 E9/LRemisol HemeNeutrophils/100 WBC (Bld)69.6 % Qblgwh26.0 - 75.0 %Remisol MdnrWwsuznio649.0 E9/ETglbxm015.0 - 500.0 E9/LRemisol HemePlatelet mean volume (Bld) [Entitic vol]8.2 fLNormal6.4 - 10.8 fLRemisol HemeRBC (Bld) [#/Vol]4.5 E12/LNormal4.3 - 5.9 E12/LRemisol HemeWBC corrected for nucl RBC Auto (Bld) [#/Vol]11.5 E9/LHigh4.0 - 11.0 E9/LRemisol HemeAmbulatory Visit Summaryon 19-63-6738Ornjnioepr Visit SummaryAmbulatory Visit Summary SANNA RENDON :1985 Visit Date:06/09/2024 Ambulatory Visit Instructions Your Diagnosis Antiphospholipid antibody with hypercoagulable state H/O: CVA Gestational diabetes BMI 35.0-35.9,adult Morbid obesity Your Care Team Attending Physician - Penelope CASAS DO, FAAFP Primary Care Physician - Penelope CASAS DO, FAAFP This Is Your Medications List fluticasone nasal (Flonase 0.05 mg/inh Beltrami) Contact prescribing physician if questions or concerns [...] With: Penelope CASAS DO, FAAFP Where: [facility] [address], [facility] [place] [address]- Medications What How Much When Instructions New fluticasone nasal (Flonase 0.05 mg/ inh Beltrami) 2 Sprays Nasal Inhalation Every day Refills: 11 each nostril Pickup at [facility]/pharmacy #[id number] Unchanged enoxaparin (Lovenox 40 mg/ 0.4 [...] physician if questions or concerns Pharmacy Information [facility]/pharmacy #[id number]: [address] [place], [place] [phone] Allergies Milk Products (Illness) ciprofloxacin (Numbness and [...] for choosing us for your care. NormalFisher Sinai Hospital Of BaltimoreBhCG Quanton 94-25-1764JMI.beta subunit Qn2 m[IU]/mLNormal1-3Fisher [facility]inai Hospital Of BaltimoreComment on above:Result Comment: 'F NON < 1 - 3' ' 0.2 - 1 WEEK = 5 TO 50' ' 1 - 2 WEEKS = 50 - 500' ' 2 - 3 WEEKS = 100 - 5000' ' 3 - 4 WEEKS = 500 - 79701' ' 4 - 5 WEEKS = 1000 - 81391' ' 5 - 6 WEEKS = 79447 - 508067' ' 6 - 8 WEEKS = 93245 - 150696' ' 8 - 12 WEEKS = 10753 - 105655'Performed By: #### [id number] #### [facility] [address], [place] [address]MZFZZYZFHDiwuqtr By: SYSTEM SYSTEM on 08-64-1707DAU Qn1.97 m[IU]/LNormal0.34 - 5.60 mcIU/mLRemisol ChemFamily Medicine Office/Clinic Noteon 34-91-9241Oufkcs Medicine Office/Clinic NoteFamily Medicine Office/Clinic Note Chief [...] from inside ear, not outside Moved from [place] Review of Systems PHQ Score Initial Depression [...] antibody with hypercoagulable state (D68.61: Antiphospholipid syndrome) [facility] Department of hematology/oncology following and treating with Lovenox, please see their consultation 05/28/2024. Treats with Lovenox 40 mg subcu every 24 hours 2. H/O: CVA (Z86.79: Personal history of other diseases of the circulatory system) Please see #1. 3. Gestational diabetes (O24.419: Gestational diabetes mellitus in , unspecified control) RECREATIONAL COUNSELOR, [facility] following. Metformin XR 500 mg tabs [...] PED In 6 months [address] [place] [address]- [phone] (more content not included)...[facility] HospitalComment on above:Result Comment: Electronically Signed By: Penelope CASAS DO, FAAFP\.br\Date and Time Signed: 06/09/24 14:24 ESTTSHon [id number] Qn1.97 m[IU]/LNormal0.34-5.60St. Rita'S HospitalComment on above:Performed By: #### [id number] #### [facility] [address] [place], [place] [address]WwPJ Quanton [id number].beta subunit Qn6 m[IU]/mLHigh1-3 [facility]'S HospitalComment on above:Result Comment: 'F NON < 1 - 3' ' 0.2 - 1 WEEK = 5 TO 50' ' 1 - 2 WEEKS = 50 - 500' ' 2 - 3 WEEKS = 100 - 5000' ' 3 - 4 WEEKS = 500 - 51025' ' 4 - 5 WEEKS = 1000 - 44645' ' 5 - 6 WEEKS = 73185 - 736811' ' 6 - 8 WEEKS = 95582 - 120968' ' 8 - 12 WEEKS = 88407 - 547517'Performed By: #### [id number] #### [facility] [address] [place], [place] [address]([place])D3 [facility] 968952-gpkdmydggiaeot D3 [Mass/Vol] 27.8 ng/mLLow31.0-80.0Ohiohealth Van Wert HospitalComment on above:Order Comment: Specimen Type: BLOOD SPECIMENOrdering Facility: [facility] Address:[address] [place], [place] [address]Mzvcfx Comment: Classification of 25 [place] Vitamin D status: Deficiency/Insufficiency: < or = 30 ng/ml. Sufficiency/Optimal Levels: 31-80 ng/mL Toxicity: > 100 ng/mL. Test performed by chemiluminescent immunoassay.Performed By: #### 1989-3 ####[facility] LABCLIA [id number] [facility]OSPITALK [id number] Auto Differential panel (Bld)on 95-91-7216Iwozfeadw (Bld) [#/Vol]0.03 10*3/uLNormal<0.11CSt. [facility] Hospital on above:Order Comment: Specimen Type: BLOOD SPECIMENOrdering Facility: [facility] Address:[address] [place], [place] [address]Performed By: #### 61925-4 ####[facility] LABCLIA [id number] [place], [place] [address]Ubicavddh/100 WBC (Bld)0.4 % NormalHolzer Hospital on above:Order Comment: Specimen Type: BLOOD SPECIMENOrdering Facility: [facility] Address:[address] [place], [place] [address]Performed By: #### 84370-1 ####[facility] LABCLIA [id number] [place] [address] Differential cell count method Nom (Bld)AutoNormalCThe Jewish Hospital Comment on above:Order Comment: Specimen Type: BLOOD SPECIMENOrdering Facility: [facility] Address:[address] [place] [address] Performed By: #### 53681-8 ####[facility] LABIA [id number] [place], [place] [address]Cajnyububnt (Bld) [#/Vol]0.08 10*3/uLNormal<0.46[facility] on above:Order Comment: Specimen Type: BLOOD SPECIMENOrdering Facility: [facility] Address:[address] [place], [place] [address]Performed By: #### 15324-3 ####[facility] LABCLIA [id number] [place], [place] [address]Xporajaixii/100 WBC (Bld)0.9 %NormalHolzer Hospital on above:Order Comment: Specimen Type: BLOOD SPECIMENOrdering Facility: [facility] Address:[address] [place], [place] [address]Performed By: #### 51179-5 ####[facility] LABIA [id number] [place], [place] [address]Oqeaqagiztk distribution width (RBC) [Ratio]13.8 %Dayxco39.5-15.0[facility] on above: Order Comment: Specimen Type: BLOOD SPECIMENOrdering Facility: [facility] Address:[address] [place], [place] [address]Performed By: #### 33940- 8 ####[facility] LABIA [id number] [place], [place] [address]Flurpnlfuo (Bld) [Volume fraction]34.0 %Low36.0-46.0 [facility] on above:Order Comment: Specimen Type: BLOOD SPECIMENOrdering Facility: [facility] Address:[address] [place], [place] [address]Performed By: #### 17299-8 ####[facility] LABIA [id number] [place], [place] [address]Ykeyglpmya (Bld) [Mass/Vol]11.5 g/eQJolvym47.5-15.5CSt. Vincent Hospital on above: Order Comment: Specimen Type: BLOOD SPECIMENOrdering Facility: [facility] Address:[address] [place], [place] [address]Performed By: #### 71650- 8 ####[facility] LABIA [id number] [place], [place] [address]Saymrhgk granulocytes (Bld) [#/Vol]0.03 10*3/uLNormal <0.10[facility] on above:Order Comment: Specimen Type: BLOOD SPECIMENOrdering Facility: [facility] Address:[address] [place], [place] [address]Performed By: #### 19463-6 ####[facility] LABCLIA [id number] [place], [place] [address]Ypfuugla granulocytes/100 WBC (Bld)0.4 %NormalHolzer Hospital on above: Order Comment: Specimen Type: BLOOD SPECIMENOrdering Facility: [facility] Address:[address] [place], [place] [address]Performed By: #### 60784- 8 ####[facility] LABCLIA [id number] [place], [place] [address]Hvtxpopxmox (Bld) [#/Vol]2.86 10*3/uLNormal1.00-4.00 [facility] on above:Order Comment: Specimen Type: BLOOD SPECIMENOrdering Facility: [facility] Address:[address] [place], [place] [address]Performed By: #### 07454-7 ####[facility] LABCLIA [id number] [place], [place] [address]Mglfnwewzjs/100 WBC (Bld)33.4 %NormalHolzer Hospital on above:Order Comment: Specimen Type: BLOOD SPECIMENOrdering Facility: [facility] Address:[address] [place], [place] [address]Performed By: #### 73788-2 ####[facility] LABCLIA [id number] [place], [place] [address]DAA (RBC) [Entitic mass]30.8 ygBfznqz20.0-34.0[facility] on above:Order Comment: Specimen Type: BLOOD SPECIMENOrdering Facility: [facility] Address:[address] [place], [place] [address]Performed By: #### 00231-3 ####[facility] LABCLIA [id number] [place], [place] [address]VGJE (RBC) [Mass/Vol]33.8 g/vDGvxguc49.5-36.0[facility] on above: Order Comment: Specimen Type: BLOOD SPECIMENOrdering Facility: [facility] Address:[address] [place], [place] [address]Performed By: #### 12046- 8 ####[facility] LABCLIA [id number] [place], [place] [address]YCX (RBC) [Entitic vol]91.2 lVEycjtm58.0-100.0[facility] on above:Order Comment: Specimen Type: BLOOD SPECIMENOrdering Facility: [facility] Address:[address] [place], [place] [address]Performed By: #### 71409-0 ####[facility] LABIA [id number] [place], [place] [address]Fcfswebfa (Bld) [#/Vol]0.66 10*3/uLNormal<0.87[facility] on above:Order Comment: Specimen Type: BLOOD SPECIMENOrdering Facility: [facility] Address:[address] [place], [place] [address]Performed By: #### 81103- 8 ####[facility] LABIA [id number] [place], [place] [address]Vehevsauk/100 WBC (Bld)7.7 %NormalHolzer Hospital on above:Order Comment: Specimen Type: BLOOD SPECIMENOrdering Facility: [facility] Address:[address] [place], [place] [address]Performed By: #### 38732-9 ####[facility] LABIA [id number] [place], [place] [address]Jceurxaeqyy (Bld) [#/Vol]4.90 10*3/uLNormal1.45-7.50[facility] on above:Order Comment: Specimen Type: BLOOD SPECIMENOrdering Facility: [facility] Address:[address] [place], [place] [address]Performed By: #### 15895-5 ####[facility] LABCLIA [id number] [place], [place] [address]Dtokuscczhy/100 WBC (Bld)57.2 %NormalHolzer Hospital on above:Order Comment: Specimen Type: BLOOD SPECIMENOrdering Facility: [facility] Address:[address] [place], [place] [address]Performed By: #### 83252-8 ####[facility] LABCLIA [id number] [place], [place] [address]Qjkkpicnt RBC (Bld) [#/Vol] 10*3/uLNormal<0.01[facility] on above:Order Comment: Specimen Type: BLOOD SPECIMENOrdering Facility: [facility] Address:[address] [place], [place] [address]Performed By: #### 78782-2 ####[facility] LABCLIA [id number] [place], [place] [address]Pregcgzeg RBC/100 WBC (Bld) [Ratio]0.0 /100 WBCNormal [facility] on above:Order Comment: Specimen Type: BLOOD SPECIMENOrdering Facility: [facility] Address:[address] [place], [place] [address]Performed By: #### 58718-0 ####[facility] LABCLIA [id number] [place], [place] [address]Fxuhklpn mean volume (Bld) [Entitic vol]9.6 fLNormal9.0-12.7CSt. [facility] Hospital on above:Order Comment: Specimen Type: BLOOD SPECIMENOrdering Facility: [facility] Address:[address] [place] [address] Performed By: #### 50854-7 ####[facility] LABCLIA [id number] [place], [place] [address]Lffctwszm (Bld) [#/Vol]345 10*3/eVLbdmtc189-435FpkyhlyvrHolzer Hospital on above:Order Comment: Specimen Type: BLOOD SPECIMENOrdering Facility: [facility] Address:[address] [place], [place] [address]Performed By: #### 79447-1 ####[facility] LABIA [id number] [place], [place] [address]AVK (Bld) [#/Vol]3.73 10*6/uLLow3.90-5.20[facility] on above:Order Comment: Specimen Type: BLOOD SPECIMENOrdering Facility: [facility] Address:[address] [place], [place] [address]Performed By: #### 77336-6 ####[facility] LABIA [id number] [place], [place] [address]KJJ (Bld) [#/Vol]8.56 10*3/uL Normal3.70-11.00[facility] on above:Order Comment: Specimen Type: BLOOD SPECIMENOrdering Facility: [facility] Address:[address] [place], [place] [address]Performed By: #### 37540-9 ####[facility] LABIA [id number] [place], [place] [address]HMQQWTio 80-52-9833NJFRGZGaqas (SP) Office (HEMASA) SANNA RENDON ([id number]) 1985 F Date Time Provider Department 05/28/24 1:00 PM ABHYANKAR, KRISTOFER HEMASA During your visit today, we recorded the following information about you: Temperature Pulse Respiration Blood pressure 97.6 degrees 72/minute 16/minute 123/83 Weight Height 98.5 kg 1.677 m Kristofer Calix MD 05/29/2024 9:13 AM Signed NAME: Sanna Rendon CLINIC NO.: [id number] DATE OF SERVICE: May 28, 2024 (Levon) [...] later in 2018. These were found in [place], [place]. I don't have access to these [...] a target-like rash shortly before presenting to [facility] in 2016 with headaches and was [...] soon. When she had a stroke in [place], she had symptoms up to a month [...] having trouble losing weight. (more content not included)...NormalOhiohealth Van Wert HospitalCNPNon 05-28-2024 CNPNTelephone (NCCAP) SANNA RENDON ([id number]) 1985 F Date Time Provider Department 05/28/24 [...] 05/28/2024 Encounter Status:Closed by TAYLOR ESCUDERO on 05/28/24NormalClevelBlue Ridge Regional HospitalComprehensive metabolic 2000 panelon 05-35-6647Vdrddwq [Mass/Vol]4.4 g/dLNormal3.9-4.9ClevelBlue Ridge Regional HospitalComment on above:Order Comment: Specimen Type: BLOOD SPECIMENOrdering Facility: [facility] Address:[address] [place] [address] [place] [id number] By: #### 79714-6 ####[facility] LABCLIA [id number] [place] [address]GIB [Catalytic activity/Vol]59 U/XGyccoo49-717LwokmfeqaHolzer Hospital on above:Order Comment: Specimen Type: BLOOD SPECIMENOrdering Facility: [facility] Address:[address] [place], [place] [address]Performed By: #### 05154-4 ####[facility] LABCLIA [id number] [place], [place] [address]JHQ [Catalytic activity/Vol]12 U/LNormal7-38[facility] on above:Order Comment: Specimen Type: BLOOD SPECIMENOrdering Facility: [facility] Address:[address] [place], [place] [address]Performed By: #### 46528- 8 ####[facility] LABCLIA [id number] [facility] DUMONTHONORHE[facility] SC[facility] SHE[facility] MEDICAL CENTERTEETEEFR[place], [place] [address]Iibnr gap [Moles/Vol]10 mmol/LNormal8-15[facility] on above:Order Comment: Specimen Type: BLOOD SPECIMENOrdering Facility: [facility] Address:[address] [place], [place] [address]Performed By: #### 32875-3 ####[facility] LABCLIA [id number] [place], [place] [address]XDB [Catalytic activity/Vol]11 U/ABgz55-40NbjaqixdvHolzer Hospital on above:Order Comment: Specimen Type: BLOOD SPECIMENOrdering Facility: [facility] Address:[address] [place], [place] [address]Performed By: #### 64062-6 ####[facility] LABCLIA [id number] [place] [address] Bilirubin [Mass/Vol]0.2 mg/dLNormal0.2-1.3CSt. [facility] Hospital on above:Order Comment: Specimen Type: BLOOD SPECIMENOrdering Facility: [facility] Address:[address] [place], [place] [address]Performed By: #### 26188-6 ####[facility] LABCLIA [id number] [place], [place] [address]Bssacsa [Mass/Vol]9.7 mg/dLNormal8.5-10.2CSt. Vincent Hospital on above:Order Comment: Specimen Type: BLOOD SPECIMENOrdering Facility: [facility] Address:[address] [place], [place] [address]Performed By: #### 82625-5 ####[facility] LABCLIA [id number] [place], [place] [address]Eskzthuh [Moles/Vol]99 mmol/ROrsjtv01-229DojvythkjHolzer Hospital on above:Order Comment: Specimen Type: BLOOD SPECIMENOrdering Facility: [facility] Address:[address] [place], [place] [address]Performed By: #### 51060- 8 ####[facility] LABCLIA [id number] [place], [place] [address]XF0 [Moles/Vol]25 mmol/JPfjzfs34-34CzbexragqHolzer Hospital on above:Order Comment: Specimen Type: BLOOD SPECIMENOrdering Facility: [facility] Address:[address] [place], [place] [address]Performed By: #### 13448-6 ####[facility] LABCLIA [id number] [place], [place] [address]Knreotlyqp [Mass/Vol]0.71 mg/dL Normal0.58-0.96[facility] on above:Order Comment: Specimen Type: BLOOD SPECIMENOrdering Facility: [facility] Address:[address] [place], [place] [address]Performed By: #### 96786-6 ####[facility] LABCLIA [id number] [place], [place] [address]Vwtrwszdco and Glomerular filtration rate.predicted panel (S/P/Bld)112 mL/min/1.73m???Normal>=60[facility] on above:Order Comment: Specimen Type: BLOOD SPECIMENOrdering Facility: [facility] Address:[address] [place] [id number] Comment: Estimated Glomerular Filtration Rate (eGFR) is [...] not accurately reflect actual GFR.Performed By: #### 76322-3 ####[facility] LABCLIA [id number] [place], [place] [address]Abrwddt [Mass/Vol]79 mg/lEBaozdw25-14EttzvbelsHolzer Hospital on above:Order Comment: Specimen Type: BLOOD SPECIMENOrdering Facility: [facility] Address:[address] [place] [address]Tqlgkk Comment: [employer] ([employer]) provides guidance for cutoff [...] Standards of Medical Care in Diabetes 2016, [place] Diabetes Association. Diabetes Care. 2016.39(Suppl 1).Performed By: #### 92389-5 ####[facility] LABCLIA [id number] [place], [place] [address]Etnwagrve [Moles/Vol]4.0 mmol/LNormal3.7-5.1CSt. [facility] on above:Order Comment: Specimen Type: BLOOD SPECIMENOrdering Facility: [facility] Address:[address] [place], [place] [address]Performed By: #### 31163-7 ####[facility] LABCLIA [id number] [place], [place] [address]Xabfkku [Mass/Vol]7.1 g/dLNormal6.3-8.0[facility] on above:Order Comment: Specimen Type: BLOOD SPECIMENOrdering Facility: [facility] Address:[address] [place], [place] [address]Performed By: #### 78051- 8 ####[facility] LABCLIA [id number] [place], [place] [address]Lpsxpf [Moles/Vol]134 mmol/HXte812-263RxrkwyvynHolzer Hospital on above:Order Comment: Specimen Type: BLOOD SPECIMENOrdering Facility: [facility] Address:[address] [place], [place] [address]Performed By: #### 65595-8 ####[facility] LABCLIA [id number] [place], [place] [address]Kqxa nitrogen [Mass/Vol]8 mg/dL Normal7-21[facility] on above:Order Comment: Specimen Type: BLOOD SPECIMENOrdering Facility: [facility] Address:[address] [place], [place] [address]Performed By: #### 66877-6 ####[facility] LABCLIA [id number] [place] [address] Ferritin SerPl-mCncon 05-65-3571Qairofcs [Mass/Vol]73.8 ng/fQStlvkd57.7-205.1 [facility] on above:Order Comment: Specimen Type: BLOOD SPECIMENOrdering Facility: [facility] Address:[address] [place], [place] [address]Performed By: #### 04137-1, 2276-4, 3016-3 ####[facility] LABCLIA [id number] [place] [address] [place] AMERICAFolate SerPl-mCncon 76-47-2395Cabkdp [Mass/Vol] ng/mLNormal>4.7CSt. [facility] on above:Order Comment: Specimen Type: BLOOD SPECIMENOrdering Facility: [facility] Address:[address] [place], [place] [address]Result Comment: A result of > 20 ng/mL is not necessarily indicative of a pathologic or treatable condition: it reflects a limitation of the test methodology. Assay reference range: 4.8 to 24.2 ng/mL. Suitable for detection of folate deficiency. Reference: Folate III (Folate III) [package insert V 1.0 Namibian]. [facility], [place], [place]: February 2015.Performed By: #### 2132-9, 2284-8 ####[facility] LABCLIA [id number] [place] [address] [place] OF AMERICAIron and Iron binding capacity panelon 05-28-2024 Iron [Mass/Vol]68 ug/hHBcgetm17-313IdaaqkbeoHolzer Hospital on above: Order Comment: Specimen Type: BLOOD SPECIMENOrdering Facility: [facility] Address:[address] [place], [place] [address]Performed By: #### 32265- 8, 2276-4, 3016-3 ####[facility] LABCLIA [id number] [place] [address] [place] OF AMERICAIron binding capacity [Mass/Vol]367 ug/wVUmdjkk023-101ObxjfinstHolzer Hospital on above: Order Comment: Specimen Type: BLOOD SPECIMENOrdering Facility: [facility] Address:[address] [place], [place] [address]Performed By: #### 39817- 8, 6-4, 3016-3 ####[facility] LABCLIA [id number] [place] [address] [place] OF AMERICAIron/TIBC [Molar ratio]18.5 %Vyklpq10.0-57.0[facility] on above:Order Comment: Specimen Type: BLOOD SPECIMENOrdering Facility: [facility] Address:[address] [place], [place] [address]Performed By: #### 18130- 8, 6-4, 3016-3 ####[facility] LABCLIA [id number] [place] [address] [place] [facility] HOSPITALTS SerPl-aCncon 15-95-5651ICL Qn2.940 m[IU]/LNormal0.270-4.200[facility] on above:Order Comment: Specimen Type: BLOOD SPECIMENOrdering Facility: [facility] Address:[address] [place], [place] [address]Result Comment: If the patient is , TSH reference range varies by gestational period: First Trimester (weeks 9-12): 0.180-2.990 mIU/L Second Trimester: 0.110-3.980 mIU/L Third Trimester: 0.480-4.710 mIU/L Danny Varela et al. A Practical Approach for the Verifications and Determination of Site- and Trimester-Specific Reference Intervals for Thyroid Function tests in . Thyroid, 2019:29:3:412-420.Saeed E, et al. 2017 Guidelines of the [place] Thyroid Association for the Diagnosis and Management of Thyroid Disease during and the . Thyroid, 2017:27:3:315-389. Performed By: #### 51638-9, 4, 3015-3 ####[facility] LABCLIA [id number] [place] [address] [place] OF [facility]IAL HOSPITALVit B12 SerPl-mCncon 69-38-1726Pkrglfmfl (Vitamin B12) [Mass/Vol]487 pg/mPMlpsss027-2218AuxximmcsSt. Vincent Hospital on above:Order Comment: Specimen Type: BLOOD SPECIMENOrdering Facility: [facility] Address:[address] [place], [place] [address]Performed By: #### 2132-9, 2284-8 ####[facility] LABCLIA [id number] [facility] [id number] [place] [address] [place] L[facility] MEMORIAL HOSPITALBhCG Quanton 21-90-7406DAB.beta subunit Qn101 m[IU]/mLHigh1-3[facility] BaltimoreComment on above:Result Comment: 'F NON < 1 - 3' ' 0.2 - 1 WEEK = 5 TO 50' ' 1 - 2 WEEKS = 50 - 500' ' 2 - 3 WEEKS = 100 - 5000' ' 3 - 4 WEEKS = 500 - 74147' ' 4 - 5 WEEKS = 1000 - 35689' ' 5 - 6 WEEKS = 33003 - 237867' ' 6 - 8 WEEKS = 41529 - 046920' ' 8 - 12 WEEKS = 91121 - 217025'Performed By: #### [id number] #### [facility] [address] [place], [place] [address]JWIMGT V LEIDEN MUTATIONon 79-38-3114ATF FACTOR V LEIDEN MUTATIONComment.[facility] HealthcareComment on above:Result: c.1601G>A (p.Ytl750Kav) - Not Detected This result is not associated with an increased risk for venous thromboembolism. See Additional Clinical Information and Comments. Additional Clinical Information: Venous thromboembolism is a multifactorial disease influenced by genetic, environmental, and circumstantial risk factors. The c.1601G>A (p. Hpf975Xia) variant in the F5 gene, commonly referred [...] c.*97G>A variant and Factor V Leiden (PMID: 05336787). Additional risk factors include but are not [...] health care providers to discuss results at 1-044-062-WSFU (3341). Test Details: Variant Analyzed: c.1601G>A (p. Tgt891Lua), referred to as Factor V Leiden Methods/Limitations: [...] developed and its performance characteristics determined by [employer]. It has not been cleared or approved by the Food and Drug Administration. References: Jomar Tian, Loren BLANDON, Thiago R, Solo WW, Jose JH; ACMG Professional Practice and Guidelines Committee. Addendum: [employer] consensus statement on factor V Leiden mutation testing. Nisha Med. 2020Jul 02. doi: 10.1038/u35539-139-30541-i. PMID: 35594422. Naina POWERS. Factor V Leiden Thrombophilia. 1998September 10 (Updated 2017May 03). In: Emeterio MP, Radha HH, Clayton RA, et al., editors. Cassie(R) (Internet). [place] ([place]): [facility], [place]; [phone]. Available from: https://www.ncbi.nlm.nih.gov/books/RRP1782/ Hudson Tian, Loren BLANDON, Trent X, Margarito B, Jo-Ann EB, Lena P, Rhiannon CS; ACMG Laboratory Director Of Instrumental Music Committee. Venous thromboembolism laboratory testing (factor V Leiden and factor II c.*97G>A), 2018 update: a technical standard of the [place] College [employer] and Genomics (ACMG). Nisha Med. 2018 Mar;20(12):4212-1264. doi: 10.1038/h95505-922-9035-w. Epub 2017Feb 01. PMID: 95348757. [facility] REVIEWED BYComment.NOMS HealthcareComment on above:Technical Component performed at [facility] Professional Component performed by: [facility] Healthresmio Rosa Isela Lee, Ph.D., [facility] Director, Molecular Genetics [address] [facility] Performed at: - [facility] [address], [place], [place] [address] Leaf Tier: [facility], Phone: [phone] [facility] [id number] (HEMASA) SANNA RENDON ([id number]) 1985 F Date Time Provider Department 05/14/24 [...] for deficiency. She is aware if her vp purchasing or PCP request any additional testing, we [...] Date Reviewed: 04/28/2024 Reviewed by: Katherine Negrete APRN.RAND BUTTING MACHINE OPERATOR - Fully Assessed Reason for Visit: [...] 08/01/2022 Encounter Status:Closed by RACHAEL JOHNSON on 05/14/24[facility] MISCELLANEOUS TESTon 69-08-3152PCRUIYRJZBOSO TESTCOMMENT.NOMS HealthcareComment on above:Test Ordered: 199565 , ID Ab Cytomegalovirus (CMV) Ab, IgG [...] 0.9 - 1.1 Positive >1.1 Performed at: [address] [id number] Leaf Tier: Dusty Miles PhD, Phone: [phone] Performed at: [address] [id number] Leaf Tier: China Ching MD, Phone: [phone] , Infectious Disease Antibody Profile CLINISYNCNOMS HealthcareNo Panel Informationon 03-25-3532JEOJPZWZACKYR HealthcarePROTEIN C-FUNCTIONALon 85-86-7388FVXRWAB C-PJJPDYWGZF138 %73 - 180 % NOMS HealthcareComment on above:Performed at: [address] [id number] Leaf Tier: China Ching MD, Phone: [phone] PROTEIN S-ANTIGENon 72-65-6904LUJYLXL S, REEZ622 %61 - 136 %[facility] PROTEIN S, TOTAL96 %60 - 150 %NOMS HealthcareComment on above:This test was developed and its performance characteristics determined by [facility]. It has not been cleared or approved by the Food and Drug Administration. [facility] ANTITHROMBIN ACTIVITYon 44-25-3636Vcfjudtxltqvsg and review of laboratory resultsAbnormalSaint [facility] University Hospital ANTITHROMBIN EEILQGBS446 %Ibuebnzf08 - 135 % NOMS HealthcareComment on above:An elevated antithrombin activity is of no known clinical significance. Direct Xa inhibitor anticoagulants such as rivaroxaban, apixaban and edoxaban will lead to spuriously elevated antithrombin activity levels possibly masking a deficiency. Performed at: [address] [id number] Leaf Tier: China Ching MD, Phone: [phone] ALL IMMUNOGLOBULIN Koffi 31-50-4477EGL IMMUNOGLOBULIN G, QN913 mg/dL586 - 1602 mg/dLNOOR HealthcareComment on above:Performed at: [address] [id number] Leaf Tier: Dusty Miles PhD, Phone: [phone] ALL IMMUNOGLOBULIN Mon 15-61-6001IJN IMMUNOGLOBULIN M, Q177 mg/dL26 - 217 mg/dL NOM HealthcareComment on above:Performed at: [address] [id number] Leaf Tier: Dusty Miles PhD, Phone: [phone] [facility] HOMOCYSTEINEon 98-26-9320HKYKOMSU(E)INE5.8 umol/L0.0 - 14.5 umol/LNOMS HealthcareNo Panel Informationon 32-00-6251DBXFVGWVTXAHM HealthcareALL CBC WITH AUTO DIFFon 80-34-4184VLXLVGSWH ABSOLUTE WILP0YTWY HealthcareBasophils/100 WBC (Bld)0.2 %0.2 - 2.0 %NOMS HealthcareEosinophils/100 WBC (Bld)0.7 %Low0.9 - 7.0 % NOMS HealthcareErythrocyte distribution width (RBC) [Ratio]13 %11.0 - 15.0 %NOMS HealthcareHematocrit (Bld) [Volume fraction]35.6 %Low36.0 - 48.0 %[facility] HospitalHemoglobin (Bld) [Mass/Vol]12.3 g/dL12.0 - 16.0 g/dLSouthPointe Hospital IMMATURE GRANULOCYTES ABS AUTO0.04HighNOEllett Memorial HospitalImmature granulocytes/100 WBC (Bld)0.4 %0.0 - 0.5 %[facility] HospitalInterpretation and review of laboratory resultsAbnormalNOOR HealthcareLYMPHOCYTES ABSOLUTE AUTO2.5NOMS [facility] Lymphocytes/100 WBC (Bld)26.1 %20.5 - 60.0 %[facility] Memorial HospitalH (RBC) [Entitic mass]31 pg26.7 - 34.[address] John'sHC (RBC) [Mass/Vol]34.6 g/dL29.9 - 35.2 g/dLSouthPointe HospitalMCV (RBC) [Entitic vol]89.7 fL81.0 - 99.0 fLSouthPointe Hospital MONOCYTES ABSOLUTE AUTO0.6NOMS HealthcareMonocytes/100 WBC (Bld)6 %1.7 - 12.0 % [facility] HospitalNEUTROPHILS ABSOLUTE AUTO6.3NOMS HealthcareNeutrophils/100 WBC (Bld)66.6 %43.0 - 75.0 %[facility]Pointe HospitalPlatelet mean volume (Bld) [Entitic vol] 9.9 fL9.5 - 13.5 fLNOMS Green Cross HospitalTBH EO #0.1NOMS Green Cross HospitalTB VEZ913KSIS Green Cross HospitalTB RBC3.97LowNOMS Green Cross HospitalTB WBC9.4NOMS [facility] Cross HospitalCLINISYNCNSaint John's Breech Regional Medical CenterCC APTTon 20-72-1480eTMI Coag (Bld) [Time]28.5 [facility] CenterLon 05-10-2024L Specimen: [id number] Received: 05/12/24-120 Status: BALDOMERO Andrade Num: [id number] Spec Type: Surgical Subm Dr: Wilton Herrmann Tissues: A Placenta - Other than 3rd Trimester (14 WK PLACENTA) Procedures: HE/3, Gross/Micro L4 Age/ Patient Sex Location Account Attending Physician Sanna Rendon 38/F LABELL [id number] Wilton Herrmann SPEC NUM: [id number] RECD: 05/12/24-1209 STATUS: BALDOMERO ANDRADE NUM: [id number] AMARILYS: 05/10/24- SUBM DR: Wilton Herrmann ENTERED: 05/12/24-[address]: Yao Pickett SPEC TYPE: Surgical DEPT: [facility] ENTERED BY: [id number] RECV BY: [id number] ORDERED: HE/3, Gross/Micro L4 ORDERED: HE/3, Gross/Micro [...] BS25-17 Received: 05/12/24 Status: BALDOMERO Andrade Num: [id number] Spec Type: Surgical Subm Dr: Wilton Herrmann Tissues: A Placenta - Other than 3rd Trimester (14 WK PLACENTA) Procedures: DEION/Ramone, Gross/Micro L4 Patient: Lizandro,Katie [id number] (Continued) Specimen: [id number] Received: 05/12/24 (Continued) Gross Description (Continued) Signed (signature on file) Vivi Hill MD 05/13/24 1605 Specimen: [id number] Received: 05/12/24 Status: JUSTINEBrittany Andrade Num: [id number] Spec Type: Surgical Subm Dr: Wilton Herrmann Tissues: A Placenta - Other than 3rd Trimester (14 WK PLACENTA) Procedures: /3, Gross/Micro L4 Patient: Sanna Rendon [id number] (Continued) Specimen: [id number] Received: 05/12/24 (Continued) Gross [...] and uniform. Cassettes: A1 Rolled membrane A2-A3 Ladies Underwear Operator sections of placenta (3, ss, BS25-17 A) JosselynG . CPT Codes 48669 Specimen: [id number] Received: 05/12/24 Status: BALDOMERO Andrade Num: [id number] Spec Type: Surgical Subm Dr: Wilton Herrmann Tissues: A Placenta - Other than 3rd Trimester (14 WK PLACENTA) Procedures: DEION/Ramone, Gross/Micro L4 Patient: LizandroSanna [id number] (Continued) Signed (signature on file) Vivi Hill MD 05/13/[address] [place] [address] Physician GroupMHPT FIBRINOGENon 05-10-2024 HUEGNHYNBW197 mg/dL200 - 400 mg/dLNOEllett Memorial HospitalNo Panel Informationon 80-76-8147ORJJVNCKOPODL HealthcareSRMCOH PROTHROMBIN TIME INR W/O COUMon 88-68-5213QY Coag (PPP) [Time]10.3 sNPerry County Memorial Hospital INR0.97[facility] Comment on above:DESIRED INR: 2.0-3.0 CONDITIONS NOT LISTED BELOW 2.5-3.5 FOR PROSTHETIC HEART VALVE REPLACEMENT 2.5-3.5 RECURRENT THROMBOSIS US PELVISon 45-68-1367[place] [address] Ultrasound Report Signed Patient: SANNA RENDON MR#: [id number] : 1985 Acct:[id number] Age/Sex: 38 / F ADM Date: Loc: [facility] 258-[address]: Wilton Herrmann D.O. Ordering Physician: Wilton Herrmann D.O. Date of Service: 05/10/24 Procedure(s): US pelvis Accession Number(s): [id number] cc: Wilton Herrmann D.O.; PENELOPE CASAS [place] [phone] Patient Name: SANNA RENDON MRN: [id number] date: 1985 Sex: F Assigned Patient Location: [facility] Current Patient Location: [facility] Accession/Order Number: [id number] Exam Date: 05/10/2024 14:36 Report Date: 05/10/2024 [...] M.D. Signed By: 05/10/241603 DD/ 01 TD/TT: Podiatry Teacher:ELVERadiology, Radiologist, - 05/10/2024 [place] [address] Ultrasound Report Signed Patient: SANNA RENDON MR#: [id number] : 1985 Acct:[id number] Age/Sex: 38 / F ADM Date: Loc: [facility] 258-[address]: Wilton Herrmann D.O. Ordering Physician: Wilton Herrmann D.O. Date of Service: 05/10/24 Procedure(s): US pelvis Accession Number(s): [id number] cc: Wilton Herrmann D.O.; PENELOPE CASAS [place] [address] Patient Name: SANNA RENDON MRN: [id number] date: 1985 Sex: F Assigned Patient Location: [facility] Current Patient Location: [facility] Accession/Order Number: [id number] Exam Date: 05/10/2024 14:36 Report Date: 05/10/2024 [...] M.D. Signed By: 05/10/241603 DD/ 01 TD/TT: Podiatry Teacher: SHILOH HealthcareRadiology Study observation (narrative)SHILOH HealthcareUS PELVIS Ordered By: Radiologist Radiology on 91-45-6354CVFP Healthcare Work Phone: US for pregnancyon 52-18-7045VsiMatthew [place] [phone] Ultrasound Report Signed Patient: SANNA RENDON MR#: [id number] : 1985 Acct:[id number] Age/Sex: 38 / F ADM Date: Loc: [facility] 258-[address]: Wilton Herrmann D.O. Ordering Physician: Wilton Herrmann D.O. Date of Service: 05/10/24 Procedure(s): US OB limited Accession Number(s): [id number] cc: Witlon Herrmann D.O.; PENELOPE CASAS [address] [address] Patient Name: SANNA RENDON MRN: [id number] date: 1985 Sex: F Assigned Patient Location: [facility] Current Patient Location: [place] Accession/Order Number: [id number] Exam Date: 05/10/2024 08:30 Report Date: 05/10/2024 [...] M.D. Signed By: 05/10/24928 DD/ 5 TD/TT: Podiatry Teacher:ELVERadiologPacheco morales, - 05/10/2024 [place] [address] Ultrasound Report Signed Patient: SANNA RENDON MR#: [id number] : 1985 Acct:[id number] Age/Sex: 38 / F ADM Date: Loc: [facility] 258-[address]: Wilton Herrmann D.O. Ordering Physician: Wilton Herrmann D.O. Date of Service: 05/10/24 Procedure(s): US OB limited Accession Number(s): [id number] cc: Wilton Herrmann D.O.; PENELOPE CASAS [place] [address] Patient Name: SANNA RENDON MRN: [facility]:[id number] date: 1985 Sex: F Assigned Patient Location: [facility] Current Patient Location: [place] Accession/Order Number: [id number] Exam Date: 05/10/2024 08:30 Report Date: 05/10/2024 [...] M.D. Signed By: 05/10/24928 DD/ 5 TD/TT: Podiatry Teacher: SHILOH HealthcareRadiology Study observation (narrative)NOMS HealthcareUS for pregnancyOrdered By: Radiologist Radiology on 52-11-9681KGLT Healthcare Work Phone: us OB TRANSVAGINALon 03-65-0002NQ OB TRANSVAGINALTITLE OF EXAM: OB Ultrasound: REASON [...] period was 01/29/2024.Urinalysis macro (dipstick) panel (U)on 71-80-0756Uthtcyftx, UANegativeNegative - 4(70) +++ mg/dLNOOR Healthcare Blood, UANegativeNegative - 50 Max/mcLNOOR HealthcareClarity, UAClearNOOR HealthcareColor, UAYellowNOOR HealthcareGlucose, UANegativeNegative - 2000(110) ++++ mg/dLNOOR HealthcareInterpretation and review of laboratory resultsNormal NOMS HealthcareKetones, UANegativeNegative - 160(16) ++++ mg/dLNOOR Healthcare Leukocytes, UANegativeNegative - 500+++ John/mcLNOOR HealthcareNitrite, UA NegativeNegative - PositiveNOMS HealthcarepH, UA65 - 9NOMS HealthcareProtein, UA NegativeNegative - 2000(20) ++++ mg/dLNOOR HealthcareSpec Grav, UA1.011 - 1.03 NOMS HealthcareUrobilinogen, UA0.20.2 - 12 mg/dLNOMS HealthcareNOMS Healthcare BOX TESTon 83-16-0000ZJV TEST SENT OUTYNOMS GktlpjfjxgGNJ9SLSTEEHRH Healthcare ELX07106/13/23NOMS HealthcareUNITY BOX CLINISYNCNOOR HealthcareTBH DRUG SCREEN RAPID (URINE)on 63-10-9610YFYEFBFAIXU SCREEN URINENegativeNEGATIVENOMS HealthcareBARBITURATES SCREEN URINENegative NEGATIVENOMS HealthcareBENZODIAZEPINES [...] TRICYCLIC ANTIDEPRESSANT URINENegativeNEGATIVENOMS HealthcareCLINISYNCNOMS HealthcareUS OB TRANSVAGINALon 85-02-9852[place]qp[place] [address] Ultrasound Report Signed Patient: Sanna Rendon MR#: [id number] : 1985 Acct:[id number] Age/Sex: 38 / F ADM Date: 04/04/24 Loc: [facility] Attending Dr: Wilton Herrmann D.O. Ordering Physician: Wilton Herrmann D.O. Date of Service: 04/04/24 Procedure(s): US OB transvaginal Accession Number(s): [id number] cc: Wilton Herrmann D.O.; PENELOPE CASAS [place] [phone] Patient Name: SANNA RENDON MRN: TBH:[id number] date: 1985 Sex: F Assigned [facility] Current Patient Location: Accession/Order Number: [id number] Exam Date: 04/04/2024 09:43 Report Date: 04/05/2024 [...] Signed By: 04/05/24 0442 DD/ 0439 TD/TT: Podiatry Teacher:TBHRadiology, Radiologist, MD - 04/05/2024 [place] [address] Ultrasound Report Signed Patient: Sanna Rednon MR#: [id number] : 1985 Acct:[id number] Age/Sex: 38 / F ADM Date: 04/04/24 Loc: [facility] Attending Dr: Wilton Herrmann D.O. Ordering Physician: Wilton Herrmann D.O. Date of Service: 04/04/24 Procedure(s): US OB transvaginal Accession Number(s): [id number] cc: Wilton Herrmann D.O.; PENELOPE CASAS [place] [phone] Patient Name: SANNA RENDON MRN: [id number] date: 1985 Sex: F Assigned Patient Location: [facility] Current Patient Location: Accession/Order Number: [id number] Exam Date: 04/04/2024 09:43 Report Date: 04/05/2024 [...] M.D. Signed By: 04/05/242 DD/ 8 TD/TT: Podiatry Teacher: SHILOH HealthcareRadiology Study observation (narrative)[facility]Pointe HospitalUS OB TRANSVAGINALOrdered By: Radiologist Radiology on 49-51-5244OBDX [employer] Work Phone: HCG ( test) Ql (U)on 18-88-6866Ewdtmhuegkgbku and review of laboratory resultsAbnormalNOMS HealthcarePreg Test, UrPositive NegativeNOEllett Memorial HospitalNOOR HealthcareUrinalysis macro (dipstick) panel (U)on 79-53-3505Kfackpwvf, UANegativeNegative - 4(70) +++ mg/dLNOMS HealthcareBlood, UANegativeNegative - 50 Max/mcLNOMS HealthcareClarity, UAClearNOMS Healthcare Color, UAYellowNOMS HealthcareGlucose, UANegativeNegative - 2000(110) ++++ mg/dL NOMS HealthcareInterpretation and review of laboratory resultsNormalNOOR HealthcareKetones, UANegativeNegative - 160(16) ++++ mg/dLNOMS Healthcare Leukocytes, UANegativeNegative - 500+++ John/mcLNOMS HealthcareNitrite, UA NegativeNegative - PositiveNOMS HealthcarepH, UA5.55 - 9NOMS HealthcareProtein, UANegativeNegative - 2000(20) ++++ mg/dLNOMS HealthcareSpec Grav, UA1.021 - 1.03 NOMS HealthcareUrobilinogen, UA1.00.2 - 12 mg/dLNOMS HealthcareNOMS HealthcareC Urineon 98-78-9123Bnhnlmdl identified Cx Nom (U)Microbiology PROCEDURE: Urine Culture [R1] SOURCE: U CleanCatch BODY SITE: COLLECTED DATE/TIME: 03/01/2024 10:30 EDT RECEIVED DATE/TIME: 03/01/2024 13:48 EDT START DATE/TIME: 03/01/2024 13:48 EDT FREE TEXT SOURCE: Wilton HERRMANN DO, DO, Corey R FINAL REPORTS Final Report [] Verified Date/Time: 03/03/2024 08:52 EST 2,000 cfu/ml Mixed skin contaminants Performing Locations R1: This test was performed at: [facility], [address] [place] [address], [facility] , , CzrcsjHbkzqzBluffton HospitalComment on above:Performed By: #### [id number] #### [facility] [address] [place] [address]LqDA Quanton 65-84-6992JSE.beta subunit Qn747 m[IU]/mLHigh1-3 St[facility] Rita'S HospitalComment on above:Result Comment: 'F NON < 1 - 3' ' 0.2 - 1 WEEK = 5 TO 50' ' 1 - 2 WEEKS = 50 - 500' ' 2 - 3 WEEKS = 100 - 5000' ' 3 - 4 WEEKS = 500 - 08544' ' 4 - 5 WEEKS = 1000 - 26555' ' 5 - 6 WEEKS = 40920 - 483092' ' 6 - 8 WEEKS = 22838 - 051028' ' 8 - 12 WEEKS = 55242 - 210342'Performed By: #### [id number] #### [facility] [address] [place], [place] [address]PGMIJACHAJkotwqm By: SYSTEM SYSTEM on 08-57-3752EFS.beta subunit Qn747 m[IU]/mLHigh1 - 3 mIU/mLRemisol ChemComment on above:Result Comment: 'F NON < 1 - 3' ' 0.2 - 1 WEEK = 5 TO 50' ' 1 - 2 WEEKS = 50 - 500' ' 2 - 3 WEEKS = 100 - 5000' ' 3 - 4 WEEKS = 500 - 67559' ' 4 - 5 WEEKS = 1000 - 68154' ' 5 - 6 WEEKS = 69216 - 353327' ' 6 - 8 WEEKS = 34785 - 892900' ' 8 - 12 WEEKS = 50820 - 872826'BhCG Quanton 59-31-1557XQP.beta subunit Qn268 m[IU]/mLHigh1-3FAultman Orrville HospitalComment on above:Result Comment: 'F NON < 1 - 3' ' 0.2 - 1 WEEK = 5 TO 50' ' 1 - 2 WEEKS = 50 - 500' ' 2 - 3 WEEKS = 100 - 5000' ' 3 - 4 WEEKS = 500 - 46687' ' 4 - 5 WEEKS = 1000 - 72367' ' 5 - 6 WEEKS = 76623 - 998066' ' 6 - 8 WEEKS = 87171 - 884200' ' 8 - 12 WEEKS = 72473 - 504515'Performed By: #### [id number] #### [facility] [address], [place] [id number] Quanton [id number] subunit Qn123 m[IU]/mLHigh1-3 [facility] HospitalComment on above:Result Comment: 'F NON < 1 - 3' ' 0.2 - 1 WEEK = 5 TO 50' ' 1 - 2 WEEKS = 50 - 500' ' 2 - 3 WEEKS = 100 - 5000' ' 3 - 4 WEEKS = 500 - 12894' ' 4 - 5 WEEKS = 1000 - 65445' ' 5 - 6 WEEKS = 78287 - 007017' ' 6 - 8 WEEKS = 00972 - 412057' ' 8 - 12 WEEKS = 16360 - 997673'Performed By: #### [id number] #### [facility] Laboratory [address], [place] [address]BPRFTVXWFRqikdwz By: SYSTEM SYSTEM on 44-32-6603GTG.beta subunit Qn123 m[IU]/mLHigh1 - 3 mIU/mLRemisol ChemComment on above:Result Comment: 'F NON < 1 - 3' ' 0.2 - 1 WEEK = 5 TO 50' ' 1 - 2 WEEKS = 50 - 500' ' 2 - 3 WEEKS = 100 - 5000' ' 3 - 4 WEEKS = 500 - 93729' ' 4 - 5 WEEKS = 1000 - 01660' ' 5 - 6 WEEKS = 54983 - 193460' ' 6 - 8 WEEKS = 83164 - 629327' ' 8 - 12 WEEKS = 29731 - 668138'UpmY6hxt 10-99-3535IfN3u (Bld) [Mass fraction]6.0 %High<=5.9St. Rita'S HospitalComment on above:Performed By: #### [id number] #### [facility] Laboratory [address], [place] [address]WGU Screen 4th Generation wRfxon 58-23-9236YWM 1+2 Ab+HIV1 p24 Ag IA QlNon-ReactiveInvalid Interpretation CodeNon ReactiveSt. Rita'S HospitalComment on above:Result Comment: HIV-1/HIV-2 antibodies and HIV-1 p24 antigen were NOT detected. There is no laboratory evidence of HIV infection. HIV Negative Performed at: [facility] [address], [place] [id number] PhD Jd MontanoPerformed By: #### [id number] #### [facility] Laboratory [address], [place] [address]AjYY Quanton 33-01-5313PSQ.beta subunit Qn52 m[IU]/mLHigh1-3 [facility] HospitalComment on above:Result Comment: 'F NON < 1 - 3' ' 0.2 - 1 WEEK = 5 TO 50' ' 1 - 2 WEEKS = 50 - 500' ' 2 - 3 WEEKS = 100 - 5000' ' 3 - 4 WEEKS = 500 - 73548' ' 4 - 5 WEEKS = 1000 - 48107' ' 5 - 6 WEEKS = 22117 - 841388' ' 6 - 8 WEEKS = 64484 - 622132' ' 8 - 12 WEEKS = 68017 - 712676'Performed By: #### [id number] #### [facility] Laboratory [address] [place], [place] [address]JDAEYRIZNIolgmyi By: SYSTEM SYSTEM on 06-37-0531Jvakxwglrzx [Mass/Vol]225 mg/xCCmre020 - 200 mg/dLRemisol ChemCholesterol in HDL [Mass/Vol] [...] 3 - 4 WEEKS = 500 - 31009' ' 4 - 5 WEEKS = 1000 - 76201' ' 5 - 6 WEEKS = 30098 - 615184' ' 6 - 8 WEEKS = 53008 - 939233' ' 8 - 12 WEEKS = 61823 - 920444'Triglyceride [Mass/Vol]212 mg/dLHigh <=149mg/dLRemisol ChemTSH Qn5.68 m[IU]/LHigh0.34 - 5.60 mcIU/mLRemisol Chem CHEMISTRYOrdered By: Chelsey Price on 77-43-6277AkZ8x (Bld) [Mass fraction]5.9 %Normal<=5.9%[facility] UnqzLfmcPEBsvP0qrj 46-86-9644McE4v (Bld) [Mass fraction]5.9 % Normal<=5.9St. [facility]'S HospitalComment on above:Performed By: #### [id number] #### [facility] Laboratory [address], [place] [address]Gscmn Panelon 26-63-1081Tpvgnttnmsy [Mass/Vol]225 mg/dLHigh 120-200St. [facility]'S HospitalComment on above:Performed By: #### [id number] #### [facility] Laboratory [address], [place] [address]Tbbzvbjfoxr in HDL [Mass/Vol]40 mg/dLInvalid Interpretation CodeSt. Rita'S HospitalComment on above:Result Comment: '>= 60 LOW RISK' '<= 40 HIGH RISK'Performed By: #### [id number] #### [facility] Laboratory [address], [place] [address]Omduhjtwysj in LDL [Mass/Vol]171 mg/dLHigh<=129St. [facility]'S HospitalComment on above:Performed By: #### [id number] #### [facility] Laboratory [address], [place] [address]Gpzwrugtpte in VLDL [Mass/Vol]42 mg/dLHigh7-40St. [facility]'S HospitalComment on above:Performed By: #### [id number] #### [facility] Laboratory [address], [place] [address]Phywdeouyzmj [Mass/Vol]212 mg/dLHigh<=149St. Rita'S HospitalComment on above:Performed By: #### [id number] #### [facility] Laboratory [address], [place] [address]DJXar 16-07-0750SBM Qn5.68 m[IU]/LHigh0.34-5.60St[facility]'S HospitalComment on above:Performed By: #### [id number] #### [facility] Laboratory [address] [place], [place] [address]Xxfjjotixr Visit Summaryon 79-17-2818Eqpqevczyy Visit Summary Ambulatory Visit Summary SANNA RENDON [...] With: Penelope CASAS DO, FAAFP Where: [facility] [address], [facility] [place] [address]- You Need to Schedule the Following Appointments Follow Up with Penelope CASAS DO, FAAFP, FAM, PED When: In 3 months Where: [address], [facility] [place] [address]- You Need to Complete the Following HgbA1c, [...] virus infection Vaginal marlee (more content not included)...[facility] Medicine Office/Clinic Noteon 50-99-8591Uckvoh Medicine Office/Clinic NoteFalawrence f. [facility] Medicine Office/Clinic Note Chief Complaint [...] 40 mg subcu, continue to follow-up with golf technician 5. Gestational diabetes (O24.419: Gestational diabetes mellitus in , unspecified control) Metformin 500 mg daily XR tabs 2/day per RECREATIONAL COUNSELOR Ordered: HgbA1c HgbA1c HgbA1c HgbA1c 6. Well [...] PED In 3 months [address] [facility], [facility] [place] [address]- Additional Instructions: Patient Education Acute Bronchitis, Adult Problem List/Past Medical History Ongoing Acute (more content not included)...[facility] HospitalComment on above:Result Comment: Electronically Signed By: [...] Community acquired pneumonia Refills: 5 Pickup at [facility] 1985 New azithromycin (azithromycin 250 mg Tab 5-day Dose Pack (Z-Jonny)) 1 Packets By Mouth As Directed Community acquired pneumonia Duration: 5 Days as directed on package labeling Pickup at [facility] 1985 Unchanged enoxaparin (Lovenox 40 mg/ 0.4 [...] physician if questions or concerns Pharmacy Information [facility] 1986: [address] [place] [phone] Allergies Milk Products (Illness) ciprofloxacin (Numbness and [...] you for choosing us for your care. [facility] Medicine Office/Clinic Noteon 94-05-5089Jwkybm Medicine Office/Clinic NoteFalawrence f. quigley memorial hospital Medicine Office/Clinic Note Chief Complaint [...] 38 Years White Female presenting to [facility] with body aches and productive [...] puff(s), Inhalation, q6hr, 1 EA, Refill(s) 5, [facility] 1985, 168, cm, 02/01/2414:43:00 EDT, Height/Length Dosing, 101.1, kg, 02/02/24 14:43:00 EDT, Weight Dosing azithromycin, = 1 packet(s), Oral, As Directed, as directed on package labeling, X 5 day(s), # 6 tab(s), Refills(s) 0, Pharmacy: [facility] 1985, 168, cm, 02/02/24 14:43:00 [...] Bernstein MD, FAM, MED Only if needed [address] [place] [phone] Additional Instructions: Problem List/Past Medical History Ongoing [...] Vitamin D, 2000 International_Unit (more content not included)...[facility] HospitalComment on above:Result Comment: Electronically Signed By: Anni Bernstein MD\.br\Date and Time Signed: 02/01/2415:03 EDTMRI Brain w/o Contraston 68-78-6675IVJ Brain w/o ContrastExam Date/Time: 12/06/2023 14:48 EDT [...] Barker MD Transcribed by: LINDY Technologist: [facility] BaltimoreCortisolon 75-12-4371Ivodtxip [Mass/Vol]12.5 microgram/dLInvalid Interpretation Code 6.2-19.4FAultman Orrville HospitalComment on above:Result Comment: Please Note: The reference interval and flagging for this test is for an AM collection. If this is a PM collection please use: Cortisol PM: 2.3-11.9 Performed at: [employer] [id number] PhD Jd Garciaformed By: #### [id number] #### [facility] Laboratory [address], [place] [address]V3 Freeon 72-72-3018Gasm T3 [Mass/Vol]2.5 pg/mLInvalid Interpretation Code2.0-4.4FAultman Orrville HospitalComment on above:Result Comment: Performed at: [employer] [id number] PhD Jd Gacriaformed By: #### [id number] #### [facility] Laboratory [address], [place] [address]Xrknutosy 67-73-4090Amqlxmu [Catalytic activity/Vol]38 U/L Shipbb18-019LnkfnkSt. Rita'S HospitalComment on above:Performed By: #### [id number] #### [facility] Laboratory [address], [place] [address]QSKMUBPLOCokwgrp By: SYSTEM SYSTEM on 96-40-0929Boqbqbi [Catalytic activity/Vol]38 U/GXxmxtp22 - 157 unit/LRemisol ChemCobalamin (Vitamin B12) [Mass/Vol]328 pg/rTSswucs37 - 1500 pg/mLRemisol ChemCRP [Mass/Vol] 0.2 mg/dLNormal<=1.9mg/dLRemisol ChemFree T4 [Mass/Vol]0.58 ng/dLNormal0.58 - 1.64 ng/dLRemisol ChemTSH Qn4.97 m[IU]/LNormal0.34 - 5.60 mcIU/mLRemisol ChemCRP on 94-44-4760MIY [Mass/Vol]0.2 mg/dLNormal<=1.9[facility] Comment on above:Performed By: #### [id number] #### [facility] Laboratory [address] [place] [address]Zjrp T4on 02-82-0158Bwvq T4 [Mass/Vol]0.58 ng/dLNormal0.58-1.64 [facility]'S HospitalComment on above:Performed By: #### [id number] #### [facility] Laboratory [address], [place] [address]YAWXKNFHIFFjqbnct By: Isha Zheng on 48-84-1846TYT (Bld) [Velocity]18 mm/hNormal0 - 34 mm/FT HemeAutoSSSed Rate Automatedon 59-67-6906BLF (Bld) [Velocity]18 mm/hNormal0-34[facility] Comment on above:Performed By: #### [id number] #### [facility] Laboratory [address], [place] [address]JJOly 90-45-8205TSP Qn4.97 m[IU]/LNormal0.34-5.60St[facility]'S HospitalComment on above:Performed By: #### [id number] #### [facility] Laboratory [address], [place] [address]Zui B12on 79-09-6857Taobmofpb (Vitamin B12) [Mass/Vol]328 pg/mL Iujwfw81-7416FmjoooSt. Rita'S HospitalComment on above:Performed By: #### [id number] #### [facility] Laboratory [address], [place] [address]Lmwjoy Medicine Office/Clinic Noteon 55-99-3157Qhyznh Medicine Office/Clinic NoteFalawrence f. quigley memorial hospital Medicine Office/Clinic Note Chief Complaint [...] Iron deficiency) Mild, as reported by her golf technician, labs from 2022 appear normal 6. Pre-diabetes (R73.03: Prediabetes) Last A1c Continue metformin Nutrition: - Maintain optimal weight - Calorie restriction - Plant-based diet; high polyunsatur (more content not included)...[facility] HospitalComment on above:Result Comment: Electronically Signed By: Jayant YEBOAH, Monica Varela\.br\Date and Time Signed: 11/09/23 15:56 EDTPhysician Referralon 72-79-3384Eygmloeic Referral [id number]#1.00TIFFBluffton HospitalAmbulatory Visit Summaryon 08-56-4860Rtjjtypyof Visit Summary SANNA RENDON :1985 Visit Date:10/23/2023 [...] (Vitamin D) fluticasone nasal (Flonase 0.05 mg/inh Beltrami) metformin (MetFORMIN (Eqv-Glucophage XR) 500 mg oral [...] With: Penelope CASAS DO, FAAFP Where[facility] Office/Clinic Noteon 40-89-0986Ggyzsf Medicine Office/Clinic NoteChief Complaint pt here for [...] throat, changes in taste/smell/appetite, n/v/d, abd pain, FIHSER, fatigue, urinary changes, or dizziness at this [...] Mouth: mucous membranes pink, moist and intact. [place] posterior oropharynx, no palatal inflammation,uvula midline, no [...] 106.2, kg, 10/23/23 16:55:00 EDT, Weight Dosing [facility] External Ambulatory Referral 2. Nasal polyps (J33.9: Nasal polyp, unspecified) pt reported - moved before previous ENT could perform surgery - submitted new referral at this time Ordered: [facility] External Ambulatory Referral 3. Deviated septum (J34.2: Deviated nasal septum) pt reported - moved before previous ENT could perform surgery - see #2 Ordered: [facility] External Ambulatory Referral 4. BMI 37.0-37.9, adult [...] Dosing 5. Obesity ( (more content not included)...[facility] Comment on above:Result Comment: Electronically Signed By: Shirlene YEBOAH, Lourdes Baltazar\.br\Date and Time Signed: 10/23/23 17:13 EDTPatient Educationon 92-89-6194Ivygfjs EducationENT Deviated Septum The septum is the [...] specializes in ear, nose, and throat disorders (contact lens flashing puncher, or ENT) for more tests and treatment. [...] Follow these instructions at home: ? Take emrg-hir-harynup and prescription medicines only as told by [...] specializes in ear, nose, and throat disorders (contact lens flashing puncher, or ENT) for more tests and treatment. This information is not intended to replace advice given to you by your health care provider. Make sure you discuss any questions you have with your health care provider. Document Revised: 12/12/2021 Document Reviewed: 12/12/2021 UNI5 Patient Education ? 2022 [employer]. Nasal Polyps Nasal polyps are growths that form in the nose. Inflammation in the nose or sinus openings can leadto changes in the tissue (mucosa) that lines these areas. Long-term inflammation causes the mucosa to grow into a polyp filled with watery mucus. Nasal polyps look like moist, ochoa grapes in the nose. Nasal polyps are not cancer (more content not included)...NormalFisher Sinai Hospital Of BaltimoreCT Abdomen/Pelvis w/o Contraston 26-21-5855WQ Abdomen/Pelvis w/o Contrast Exam Date/Time: 09/28/2023 19:58 [...] Given? No Oral contrast amount in ml's: 0NormMercy Health Anderson HospitalB hCG Qualon 00-67-9719Zvpf HCG ( test) QlNegativeBluffton Hospital Comment on above:Performed By: #### [id number] #### [facility] Laboratory [address], [place] [address]NSMij 33-88-0200Rhaid gap [Moles/Vol]13 mmol/LNormal6-16St. Rita'S HospitalComment on above:Performed By: #### [id number] #### [facility] Laboratory [address], [place] [address]Nsehhdq [Mass/Vol]9.9 mg/dLNormal8.9-11.1FAultman Orrville HospitalComment on above:Performed By: #### [id number] #### [facility] Laboratory [address], [place] [address]Adgndltw [Moles/Vol]101 mmol/VDxfzau947-295CmpphmSt. Rita'S HospitalComment on above:Performed By: #### [id number] #### [facility] Laboratory [address], [place] [address]EI0 [Moles/Vol]25 mmol/YUzguyf75-34SfkyfkSt. Rita'S Hospital Comment on above:Performed By: #### [id number] #### [facility] Laboratory [address], [place] [address]Jmxgooejbi [Mass/Vol]0.9 mg/dLNormal0.5-1.3FAultman Orrville HospitalComment on above:Performed By: #### [id number] #### [facility] Laboratory [address], [place] [address]Odenzmv [Mass/Vol]94 mg/bIPqgsqr08-446LmarnySt. Rita'S HospitalComment on above:Performed By: #### [id number] #### [facility] Laboratory [address], [place] [address]Aiczmedjd [Moles/Vol]3.6 mmol/LNormal3.5-5.3FAultman Orrville HospitalComment on above:Performed By: #### [id number] #### [facility] Laboratory [address], [place] [address]Zioxsm [Moles/Vol]135 mmol/MIfclbf251-499SsvohwSt. Rita'S HospitalComment on above:Performed By: #### [id number] #### [facility] Laboratory [address], [place] [address]Wmdd nitrogen [Mass/Vol]8 mg/dLNormal5-21St. Rita'S HospitalComment on above:Performed By: #### [id number] #### [facility] Laboratory [address] [place] [address]Jjio nitrogen/Creatinine [Mass ratio]9 No SmutnZjc00-96EirayhSt. Rita'S HospitalComment on above:Performed By: #### [id number] #### [facility] Laboratory [address] [place] [address]QPU w/ Auto Diffon 31-22-2329Mctremvqr/100 WBC (Bld)0.7 %Normal 0.0-2.0St. Rita'S HospitalComment on above:Performed By: #### [id number] #### [facility] [address] [place] [address]Drykrmpce/Leukocytes Auto (Bld) [Pure # fraction]0.1 E9/LNormal 0.0-0.2FAultman Orrville HospitalComment on above:Performed By: #### [id number] #### [facility] [address] [place] [address]Ovzccvlvvcf (Bld) [#/Vol]0.0 E9/LNormal0.0-0.5FAultman Orrville HospitalComment on above:Performed By: #### [id number] #### [facility] [address] [place] [address]Uuyaniwqnkk/100 WBC (Bld)0.5 %Normal0.0-8.0St. Rita'S HospitalComment on above:Performed By: #### [id number] #### [facility] Laboratory [address] [place] [address]Jtstudfbutj distribution width (RBC) [Ratio]14.3 %High10.9-14.2 [facility]'S HospitalComment on above:Performed By: #### [id number] #### [facility] Laboratory [address] [place] [address]Yvebenynkw (Bld) [Volume fraction]39.5 %Lkvjnu70.0-46.0St. [facility]'S HospitalComment on above:Performed By: #### [id number] #### [facility] Laboratory [address] [place] [address]Yjxdhabnzw (Bld) [Mass/Vol]13.2 g/pOCecvwy06.0-16.0St. [facility]'S HospitalComment on above:Performed By: #### [id number] #### [facility] [address] [place] [address]Xrkwpoxnlay (Bld) [#/Vol]3.5 E9/LNormal1.0-4.0St. [facility]'S HospitalComment on above:Performed By: #### [id number] #### [facility] Laboratory [address] [place] [address]Pcvnwslomda/100 WBC (Bld)35.6 %Mblsln07.0-50.0St. [facility]'S HospitalComment on above:Performed By: #### [id number] #### [facility] [address] [place] [address]86[address]TBL (RBC) [Entitic mass]29.3 qhUmpjjj52.0-34.0St[facility]'S HospitalComment on above:Performed By: #### [id number] #### [facility] Laboratory [address] [place] [address]VESU (RBC) [Mass/Vol]33.5 g/xFMwerqu88.4-36.0St[facility]'S HospitalComment on above:Performed By: #### [id number] #### [facility] [address] [place] [address]HMG (RBC) [Entitic vol]87.4 yJBudgjz91.0-100.0St[facility]'S HospitalComment on above:Performed By: #### [id number] #### [facility] [address] [place] [address]Vgcpxkkts (Bld) [#/Vol]0.7 E9/LNormal0.2-1.0St. [facility]'S HospitalComment on above:Performed By: #### [id number] #### [facility] [address] [place] [address]Mjzzcuszusb (Bld) [#/Vol]5.6 E9/LNormal2.0-7.5FAultman Orrville HospitalComment on above:Performed By: #### [id number] #### [facility] [address] [place] [address]Poaaufmqmsm/100 WBC (Bld)56.4 %Wrdzln40.0-75.0St. [facility]'S HospitalComment on above:Performed By: #### [id number] #### [facility] [address] [place] [address]Viupniga mean volume (Bld) [Entitic vol]8.1 fLNormal6.4-10.8 [facility]'S HospitalComment on above:Performed By: #### [id number] #### [facility] Laboratory [address] [place] [address]Bigblkgon (Bld) [#/Vol]360.0 E9/KKhufsg441.0-500.0St[facility]'S HospitalComment on above:Performed By: #### [id number] #### [facility] [address] [place] [address]MPH (Bld) [#/Vol]4.5 E12/LNormal4.3-5.9St. [facility]'S HospitalComment on above:Performed By: #### [id number] #### [facility] Laboratory [address] [place] [address]ZRM corrected for nucl RBC Auto (Bld) [#/Vol]9.9 E9/LNormal 4.0-11.0St. [facility]'S HospitalComment on above:Performed By: #### [id number] #### [facility] [address] [place] [address]QFYYYGNZLMjxifiz By: SYSTEM SYSTEM on 59-79-7466Tdbqthe [Mass/Vol]4.8 g/dLNormal3.3 - 5.0 gm/dLRemisol ChemAlbumin/Globulin [Mass ratio] 1.6 {ratio}Normal1.1 - 2.2Remisol ChemALP [Catalytic activity/Vol]66 [iU]/d Vguoog22 - 98 Int._Unit/LRemisol ChemALT No additional P-5'-P [Catalytic activity/Vol]16 [iU]/dNormal6 - 46 Int._Unit/LRemisol ChemAnion gap [Moles/Vol] 13 mmol/LNormal6 - 16 mEq/LRemisol ChemAST [Catalytic activity/Vol]15 [iU]/d Normal5 - 43 Int._Unit/LRemisol ChemBilirubin [Mass/Vol]0.3 mg/dLNormal0.0 - 1.1 mg/dLRemisol ChemBilirubin.direct [Mass/Vol]0.0 mg/dLNormal0.0 - 0.4 mg/dL Remisol ChemBilirubin.indirect [Mass or moles/Vol]0.3 mg/dLNormal0.1 - 0.9 mg/dL Remisol ChemCalcium [Mass/Vol]9.9 mg/dLNormal8.9 - 11.1 mg/dLRemisol Chem Chloride [Moles/Vol]101 mmol/XBsrxim803 - 111 mmol/LRemisol ChemCO2 [Moles/Vol] 25 mmol/XHutlyz54 - 31 mmol/LRemisol ChemCreatinine [Mass/Vol]0.9 mg/dLNormal0.5 - 1.3 mg/dLRemisol HnwkoZJU24 mL/min/1.73 v5Ivrcss>=59mL/min/1.73 g0Zqjkgek ChemGlobulin (S) [Mass/Vol]3.0 g/dLNormal1.4 - 4.0 gm/dLRemisol ChemGlucose [Mass/Vol]94 mg/oQCxvcxi41 - 199 mg/dLRemisol ChemLipase [Catalytic activity/Vol]26 U/NTvkror00 - 58 unit/LRemisol ChemPotassium [Moles/Vol]3.6 mmol/LNormal3.5 - 5.3 mmol/LRemisol ChemProtein [Mass/Vol]7.8 g/dLNormal6.0 - 7.8 gm/dLRemisol ChemSodium [Moles/Vol]135 mmol/THpxjhb577 - 145 mmol/LRemisol ChemUrea nitrogen [Mass/Vol]8 mg/dLNormal5 - 21 mg/dLRemisol ChemUrea nitrogen/Creatinine [Mass ratio]9 mg/mgLow10 - 20Remisol ChemConsent for Treatmenton 59-75-3634Dilnofx for Treatment [id number]#1.00Wilson HealthDischarge Instructionson 64-61-8929Oerfwvfcr Instructions [id number]#[id number] Children's Medical Center Clinical Summaryon 60-43-8217DA Clinical Summary [place] [id number] ED Clinical Summary Person Information Name: SANNA RENDON [facility]ita[facility] Age: 37 Years : 1985 Sex: Female Language: Namibian PCP: Penelope CASAS DO, FAAFP Marital Status: Phone: [phone] Visit Id: Visit Reason: Medical problem - [...] 21:22:15 09/28/2023 21:22:15 09/28/2023 21:22:15 ADDR[facility]: [facility] [id number] PHYS DOC NOTES: MEDICAL INFORMATION: Prescriptions Given: Medications to Continue with No Changes Other Medications enoxaparin (Lovenox 40 mg/0.4 mL Injection) 40 Milligram Subcutaneous every 24 hours. ergocalciferol (Vitamin D) 2,000 International unit By Mouth every week. fluticasone nasal (Flonase 0.05 mg/inh Beltrami) 2 Sprays Nasal Inhalation every day. each nostril. metformin (MetFORMIN (Eqv-Glucophage XR) 500 mg oral tablet, extended release) 2 Tablets By Mouth every day. PATIENT EDUCATION INFORMATION: Instructions: Abdominal Pain, Adult Follow up: With: Address: When: Penelope CASAS [address] [place] [address], [place] [address] Business (1) In 3 days DIAGNOSIS: 1:Abdominal painNoUniversity [facility]als [facility] CenterED Note-Physicianon 09-28-2023 ED Note-PhysicianPatient was signed [...] understanding agreement this plan is discharged stable condition.[facility] HospitalComment on above:Result Comment: Electronically Signed By: Sidney Daly DO\.cedrick\Date and Time Signed: 09/28/23 21:12 EDTED Note-PhysicianBasic Information Time Seen: Bijan Miramontes PA-C 09/28/2023 18:46 Chief Complaint Pt woke up around 7 am and started getting a pain on R side of belly button. States feels bloated and like her abdomen is ocral.Was sent here from [facility] for possible appendicitis. Nausea, denies vomiting. [...] mL, IV, Once Home Flonase 0.05 mg/inh Beltrami, 2 spray(s), Nasal, Daily Lovenox 40 mg/0.4 [...] Lab Results No qual (more content not included)...[facility] HospitalComment on above:Result Comment: Electronically Signed By: Bijan Miramontes PA-C\.br\Date and Time Signed: 09/27/2417:50 EDT\.br\Electronically Co-Signed By: Benny Uribe DO\.br\Date and Time Co-Signed: 09/27/2418:44 EDTED Patient Education Noteon 14-47-6443LJ Patient Education NoteGastroenterology Abdominal Pain, Adult Pain [...] these instructions at home: Medicines ? Take tyht-tns-krqlbeo and prescription medicines only as told by [...] your condition for any changes. ? Take chrb-prp-qxwgppe and prescription medicines only as told by [...] Reviewed: 08/25/2019 Elsevier Patient Education ? 2022 [employer].[facility] ED Patient Summaryon 24-93-9294MU Patient Summary [address] [address] Patient Discharge Instructions Person Information Name: SANNA RENDON Age: 37 Years Arrival Date: 09/28/2023 18:21:25 Discharge Diagnosis: 1:Abdominal pain Primary Care Physician: Penelope CASAS DO, FAAFP Provider Information Primary Provider: Benny Uribe DO Advanced Pin Cleaner:Bijan Miramontes PA-C The exam and treatment you received in the Emergency Department were for an urgent problem and are not intended as complete care. It is important that you follow up with a doctor, nurse practitioner,or physician?s endodontic assistant for ongoing care. If your symptoms [...] Follow-up Instructions: With: Address: When: Penelope CASAS [address] [place] [address], [place] [address] Business (1) In 3 days In the event that this physician does not participate in your insurance network, please consult with your insurance company to find a nearby participating provider. Patient Education Materials: Abdominal Pain, Adult A MESSAGE TO ALL PATIENTS REGARDING OPIOIDS PRESCRIPTION OPIOIDS: WHAT YOU NEED TO KNOW Prescription opioids can be used to help relieve zjizulhn-ze-volpzl pain and are often prescribed following a [...] your community drug take- back program or yourGamblinormacy mail-back program, or flush them down the toilet, following guidance from the Food and Drug Administration (www.fda.gov/Drugs/ResourcesForYou). ? Visit www.cdc.gov/drugoverdose to learn about the risks of opioids abuse and overdose. ? If you believe you may be struggling with addiction, tell your health managed care director and ask for guidance or call [facility]?S National Helpline at 7-094-899-BUX. v Source: Dep (more content not included)...[facility] Office/Clinic Noteon 51-43-6128Jqocxc Medicine Office/Clinic NoteChief Complaint abdominal pain HPI [...] agree with above documented HPI by medical office worker. Portions of this record may have been created with voice recognition artificial intelligence software, specifically [employer], [employer] and or [employer]. Substitutions may have occurred due to the inherent limitations of voice recognition and artificial intelligence software. Patient is a 37-year-old female who presents to [facility], for right lower quadrant pain, that [...] Repeat BP 140/90. 37-year-old female presented to [facility], for right lower quadrant abdominal pain, worseningsymptoms throughout the day, history of ovarian cyst, still has her appendix, no right upper quadrant pain. Patient worsening pain on exam, but no acute abdomen. Patient is willing to go to the emergency room after being discharged from [facility], for further evaluation of right lower quadrant [...] loss. We can o (more content not included)...[facility] HospitalComment on above:Result Comment: Electronically Signed By: CHARLA QUINTEROS, JANET\.br\Date and Time Signed: 09/28/23 18:28 EDTHEMATOLOGYOrdered By: SYSTEM SYSTEM on 01-60-3698Bjjzxztln/100 WBC (Bld)0.7 %Normal0.0 - 2.0 %Remisol HemeBasophils/Leukocytes Auto (Bld) [Pure # fraction]0.1 E9/LNormal0.0 - 0.2 E9/LRemisol HemeEosinophils (Bld) [#/Vol]0.0 E9/LNormal0.0 - 0.5 E9/LRemisol HemeEosinophils/100 WBC (Bld)0.5 % Normal0.0 - 8.0 %Remisol HemeErythrocyte distribution width (RBC) [Ratio]14.3 % High10.9 - 14.2 %Remisol HemeHematocrit (Bld) [Volume fraction]39.5 %Kaated51.0 - 46.0 %Remisol HemeHemoglobin (Bld) [Mass/Vol]13.2 g/iBMctbtn19.0 - 16.0 gm/dL Remisol HemeLymphocytes (Bld) [#/Vol]3.5 E9/LNormal1.0 - 4.0 E9/LRemisol Heme Lymphocytes/100 WBC (Bld)35.6 %Fforye57.0 - 50.0 %Remisol HemeMCH (RBC) [Entitic mass]29.3 fmTzkjiz89.0 - 34.0 pgRemisol HemeMCHC (RBC) [Mass/Vol]33.5 g/dL Zcrvcq17.4 - 36.0 gm/dLRemisol HemeMCV (RBC) [Entitic vol]87.4 sXXobirb18.0 - 100.0 fLRemisol HemeMonocytes (Bld) [#/Vol]0.7 E9/LNormal0.2 - 1.0 E9/LRemisol HemeMonocytes/100 WBC (Bld)6.8 %Normal4.0 - 14.0 %Remisol HemeNeutrophils (Bld) [#/Vol]5.6 E9/LNormal2.0 - 7.5 E9/LRemisol HemeNeutrophils/100 WBC (Bld)56.4 % Luqwmi78.0 - 75.0 %Remisol HemePlatelet mean volume (Bld) [Entitic vol]8.1 fL Normal6.4 - 10.8 fLRemisol HemePlatelets (Bld) [#/Vol]360.0 E9/NEmjyjv103.0 - 500.0 E9/LRemisol HemeRBC (Bld) [#/Vol]4.5 E12/LNormal4.3 - 5.9 E12/LRemisol HemeWBC corrected for nucl RBC Auto (Bld) [#/Vol]9.9 E9/LNormal4.0 - 11.0 E9/L Remisol HemeHep Func Panelon 63-43-9957Vlzecfe [Mass/Vol]4.8 g/dLNormal3.3-5.0 [facility]S HospitalComment on above:Performed By: #### [id number] #### [facility] [address], [place] [address]Bjxggxn/Globulin (S) [Mass conc ratio]1.5Azbbxh1.1-2.2FAultman Orrville HospitalComment on above:Performed By: #### [id number] #### [facility] [address] [place] [address] 72516UTZ [Catalytic activity/Vol]66 Int._Unit/OCslrtv83-05ZmpgczSt. Rita'S HospitalComment on above:Performed By: #### [id number] #### [facility] [address] [place] [address] 16189JIG No additional P-5'-P [Catalytic activity/Vol]16 Int._Unit/L Normal6-46St. [facility]'S HospitalComment on above:Performed By: #### [id number] #### [facility] [address] [place] [address] 36002IBK [Catalytic activity/Vol]15 Int._Unit/LNormal5-43St. [facility]'S HospitalComment on above:Performed By: #### [id number] #### [facility] [address] [place] [address] 877[address]Ckyybsusc [Mass/Vol]0.3 mg/dLNormal0.0-1.1FAultman Orrville HospitalComment on above:Performed By: #### [id number] #### [facility] [address] [place] [address]Qwnahbquj.direct [Mass/Vol]0.0 mg/dLNormal0.0-0.4FAultman Orrville HospitalComment on above:Performed By: #### [id number] #### [facility] [address] [place] [address]Pmoawuyen.indirect [Mass or moles/Vol]0.3 mg/dLNormal0.1-0.9 [facility]S HospitalComment on above:Performed By: #### [id number] #### [facility] [address], [place] [address]Vppydktm (S) [Mass/Vol]3.0 g/dLNormal1.4-4.0St[facility]S HospitalComment on above:Performed By: #### [id number] #### [facility] [address], [place] [address]Gnhskoc [Mass/Vol]7.8 g/dLNormal6.0-7.8St[facility]S HospitalComment on above:Performed By: #### [id number] #### [facility] [address], [place] [address]Jjqtxb Levelon 04-61-2541Iraxei [Catalytic activity/Vol]26 U/L Tzfhhj61-84ExbqgqSt. Rita'S HospitalComment on above:Performed By: #### [id number] #### [facility] [address], [place] [address]Lewupap Educationon 03-25-9496Hmjwfqk EducationCardiovascular Hypertension, Adult Hypertension is another name [...] Keep all follow-up visits. Medicines ? Take vpam-pea-nztutxv and prescription medicines only as told by [...] blood. ? For m (more content not included)...[facility] HospitalRAD - Preliminary Cat Scan Reporton 19-36-4374LYK - Preliminary Cat Scan Report [id number]#1.00TIFFNormalChillicothe VA Medical CenterEROLOGYOrdered By: Amanda Siegel on 97-79-5498Qonx HCG ( test) QlNegative (09/28/23 6:59 PM)[facility] Man SeroUA with Cult Rflxon 97-29-7443Ljbkgyvpc Ql (U)NegativeNormalNegativeSt. Rita'S HospitalComment on above:Performed By: #### [id number] ####[facility] Pjnwgqwncb[address] AveNormohawk valley general hospitalk, MV[address]Jjjadci (U)ClearNormalClearUnc Health Lenoirer Sinai Hospital Of BaltimoreComment on above:Performed By: #### [id number] ####[facility] Auowqmxizq[address] AveNorwalk, ZC[address]Bzlgp (U)ColorlessAbnormalYellowSt. Rita'S HospitalComment on above:Result Comment: Microscopic readings are only performed on those samples that meet specific criteria set forth by [facility].Performed By: #### [id number] ####[place] [address] AveNlawrence+memorial hospital, KK[address]Rktwrjx Ql (U)Negative NormalNegativeSt. Rita'S HospitalComment on above:Performed By: #### [id number] ####[address] AveNorbackus hospital, [place] [address]Gpfkhlsfou Auto test strip (U) [Mass/Vol]NegativeNormalNegativeSt. Rita'S HospitalComment on above:Performed By: #### [id number] ####[place] [address] AveNorbackus hospital, QA[address]Npsbslv Auto test strip Ql (U)NegativeNormalNegativeSt. Rita'S HospitalComment on above: Performed By: #### [id number] ####[place] [address] AveNorbackus hospital, KW[address]Qyvpenfqw esterase Auto test strip Ql (U)Negative NormalNegativeSt. Rita'S HospitalComment on above:Performed By: #### [id number] ####[facility] Mfucnkmycx[address] AveNorbackus hospital, [place] [address]Hbwwemz Auto test strip Ql (U)NegativeNormalNegativeSt. Rita'S HospitalComment on above:Performed By: #### [id number] ####[place] [address] AveNorwalk, SA[address]rH (U)7.0 [pH]Invalid Interpretation Code5.0-9.0St. [facility]'S HospitalComment on above:Performed By: #### [id number] ####[facility] Dloeebmyac242 [facility], ZQ[address]Tqdljsr Ql (U)NegativeNormalNegativeSt. Rita'S HospitalComment on above:Performed By: #### [id number] ####[facility] Pmhasbhuhz630 [facility], DD[address]Wxqkidui gravity (U) [Rel density]1.003Invalid Interpretation Code1.005-1.030[facility] Comment on above:Performed By: #### [id number] ####[address], [place]Jojkpxyygfmg (U) [Mass/Vol]Negative NormalNegativeSt. Rita'S HospitalComment on above:Performed By: #### [id number] ####[place] [address] [facility] [place] [address]Kkuu of Urine collection methodClean [facility] Comment on above:Performed By: #### [id number] ####[place] [address] [facility] [place]ERFTUVODGIDbjuiat By: SYSTEM SYSTEM on 68-09-2687Hvbhwnrku Ql (U)NegativeNormalNegativemg/dLHARPER COUNTY [facility] UA Auto SSClarity (U) Clear (09/28/23 7:35 PM)NormalClearFTMC UA Auto SSColor (U)Colorless 1 *ABN* (09/28/23 7:35 PM)Invalid Interpretation CodeYellowHARPER COUNTY COMMUNITY HOSP[facility] UA Auto SSComment on above:Interpretive Data: Microscopic readings are only performed on those samples that meet specific criteria set forth by [facility].Glucose Ql (U)NegativeNormalNegativemg/dLFT UA Auto SSHemoglobin Auto test strip (U) [Mass/Vol]NegativeNormalNegativemg/dLFT UA Auto SSKetones Auto test strip Ql (U)NegativeNormalNegativemg/dLFT UA Auto SSLeukocyte esterase Auto test strip Ql (U)NegativeNormalNegativeLeu/uLFT UA Auto SS Nitrite Auto test strip Ql (U)NegativeNormalNegativemg/dLFT UA Auto SSpH (U) 7.0 *NA* (09/28/23 7:35 PM)Invalid Interpretation Code5.0 - 9.0[facility] UA Auto SSProtein Ql (U)NegativeNormalNegativemg/dLHARPER COUNTY COMMUNITY [facility]OS[facility] UA Auto SSSpecific gravity (U) [Rel density] 1.003 *NA* (09/28/23 7:35 PM)Invalid Interpretation Code1.005 - 1.030[facility] UA Auto SS Urobilinogen (U) [Mass/Vol]NegativeNormalNegativemg/dLHARPER COUNTY COMM[facility]ITY [facility] UA Auto SSURINALYSIS Ordered By: Bijan Miramontes on 12-92-8555QH Spec DescClean Catch (09/28/23 7:35 PM)NormalHARPER COUNTY COMMUNITY HOSP[facility] UA Auto SS egFRon 76-86-7651qTJC19 mL/min/1.73 l4Jzbtpp>=59Fisher [facility] Hospital Of BaltimoreComment on above:Order Comment: Order added by Discern Expert.Performed By: #### [id number] #### [facility] [address], [place] [address]Fwibtjcagh Visit Summaryon 09-37-3509Lncabudthc Visit Summary SANNA RENDON :1985 Visit Date:08/03/2023 [...] (Vitamin D) fluticasone nasal (Flonase 0.05 mg/inh Beltrami) metformin (MetFORMIN (Eqv-Glucophage XR) 500 mg oral [...] PED When: In 4 months Where: [address] [place] [address]- You Need to Complete the Following HgbA1c, [...] Unchanged fluticasone nasal (Flonase 0.05 mg/ inh Beltrami) 2 Sprays Nasal Inhalation Every day each [...] a mile (more content not included)...[facility] Medicine Office/Clinic Noteon 40-88-5460Tujwof Medicine Office/Clinic NoteChief Complaint Wants to discuss [...] comfortable with plan. PNMV Ordered: A1c POC 31578 Total time spent preparing the chart, conducting [...] FAAFP, FAM, PED In 4 months [address] [facility], [facility] [place] [address]- Additional Instructions: Patient Education Exercising to Lose Weight Problem Lis (more content not included)...[facility] Comment on above:Result Comment: Electronically Signed By: Penelope CASAS DO, FAAFP\.br\Date and Time Signed: 08/03/23 12:19 EDTPUniversity [facility]-2023 Patient EducationPhysical Medicine and Rehabilitation [...] your health care provider or diet and nutritional yeast supervisor (dietitian). This may include: ? Eating [...] regular exercise is e (more content not included)...[facility] HospitalPatient Educationon 69-48-3301Tixcxfl EducationEndocrinology Blood Glucose Monitoring, Adult Monitoring your [...] meter by following in (more content not included)...[facility] HospitalLab Reportson 37-48-7356Qqs Reports [id number] HealthConsultation Noteon 13-85-5844Lcysflurvnqq Note [id number]#1.00Wilson HealthAmbulatory Visit Summaryon 21-25-3201Ggkkqwgkgl Visit Summary SANNA RENDON :1985 Visit Date:05/25/2023 [...] With: Penelope CASAS DO, FAAFP [facility]No[facility] Office/Clinic Noteon 50-95-3099Soecjr Medicine Office/Clinic NoteChief Complaint States she is [...] Benadryl. 2. Dyshidrotic eczema (L30.1: Dyshidrosis [pompholyx]) Kqqo-tow-voeqzug hydrocortisone cream 1% or 2.5% as directed. [...] FAAFP, FAM, PED In 2 months [address] [facility], [place] [address]- Additional Instructions: Patient Education Eustachian Tube Dysfunction Dyshidrotic Eczema Allergies, Tadeo (more content not included)...[facility] Comment on above:Result Comment: Electronically Signed [...] ears completely after. General instructions ? Take hrrn-nok-sulfklc and prescription medicines only as told by [...] cases are treated w (more content not included)...[facility] Urineon 42-05-3354Kdfdryop identified Cx Nom (U) Microbiology PROCEDURE: Urine [...] This test was performed at: [facility], [address] [place] [address], [address]- , [place], BcwbvyIoqsjuBarney Children's Medical CenterComment on above:Performed By: #### [id number] ####[address] [address]Zmcpdzf for Treatmenton 68-39-4785Feuvprp for Treatment [id number]#1.00TIFFBluffton HospitalUrinalysison 01-79-2175Kprbgiip LM Ql (Urine sed)TRACENormalTraceSt. Rita'S HospitalComment on above:Performed By: #### [id number] ####[address] [address]Jbsmrvykb Ql (U) NegativeNormalNegativeSt. Rita'S HospitalComment on above:Performed By: #### [id number] ####[address] [address]Qjnytnh (U)CLOUDYAbnormalClearFAultman Orrville HospitalComment on above:Performed By: #### [id number] ####[address] [address]Lbflv (U)YELLOWNormalYellowSt. Rita'S HospitalComment on above:Performed By: #### [id number] ####[address] [address]Tgpowaohur cells.squamous LM.HPF (Urine sed) [#/Area]/[HPF]Normal0-2FAultman Orrville HospitalComment on above:Performed By: #### [id number] ####[address] [address]Ohzxkav Test strip (U) [Mass/Vol]NegativeNormal NegativeSt. Rita'S HospitalComment on above:Performed By: #### [id number] ####[address] [address] Hemoglobin Ql (U)NegativermalNegMercy Health St. Joseph Warren HospitalComment on above:Performed By: #### [id number] ####[address] [address]Dvodrhp (U) [Mass/Vol]NegativeNormalNegativeSt. Rita'S HospitalComment on above:Performed By: #### [id number] ####[address] [address] [place].plasma/[place].RBC (Bld) [Mass ratio]4-5Uxxsgc3-1Xpxvqi [facility] Hospital [facility] BaltimoreComment on above:Performed By: #### [id number] ####[address] [address]Hyrmzuh Ql (U)NegativeNormal [facility] HospitalComment on above:Performed By: #### [id number] ####[address] [address]eR (U)6.0 [pH]Invalid Interpretation Code5.0-9.0St. [facility]'S HospitalComment on above:Performed By: #### [id number] ####[address] [address]Kwjcaac (U) [Mass/Vol]NegativeNormal NegativeSt. Rita'S HospitalComment on above:Performed By: #### [id number] ####[address] [address] Specific gravity (U) [Rel density]<=1.005Invalid Interpretation Code1.005-1.030 [facility]S HospitalComment on above:Performed By: #### [id number] ####[address] [address]Jttu of Urine collection methodClean CatchNormalSt. Rita'S HospitalComment on above:Performed By: #### [id number] ####[address], [place] [address]Lsqfwplbooid Qn (U)0.2 {Nicole'U}/dLNormal0.0-1.0 [facility]S HospitalComment on above:Performed By: #### [id number] ####[facility] [address] [place], [place] [address]QXW Auto Ql (U)TRACEAbnormalNegativeSt. Rita'S HospitalComment on above: Performed By: #### [id number] ####[facility] [address] [place], [place] [address]JQS LM.HPF (Urine sed) [#/Area]7-9Uvegla3-7Lyibwi [facility] BaltimoreComment on above:Performed By: #### [id number] ####[facility] [address] [place], [place] [address]Nndjcqqdco Visit Summaryon 50-00-0100Yejupvdxar Visit Summary SANNA RENDON :1985 Visit Date:04/27/2023 [...] With: Penelope CASAS DO, FAAFP Where: [facility] CareNoBar[facility] CHEMISTRYOrdered By: SYSTEM SYSTEM on 68-77-4017UZB Qn4.04 m[IU]/LNormal0.34 - 5.60 mcIU/mLRemisol ChemEssex Hospital Medicine Office/Clinic Noteon 50-24-2536Itrzvf Medicine Office/Clinic NoteChief Complaint Since last Sunday [...] feeding. No loss of taste nor smell. [id number] while taking Glucophage XR 500 mg p.o. [...] Push fluids and Tylenol and or ibuprofen mivl-sti-rvskjpz as directed. Patient does not appear ill [...] Your BMIand weight manag (more content not included)...[facility] HospitalComment on above: Result Comment: Electronically Signed By: PRAVEEN RESENDEZ FAAFP, Penelope Tony\.br\Date and Time Signed: 04/27/23 12:53 ESTPatient Educationon 21-15-2902Hjjgelo Education Endocrinology Diabetes Mellitus and Exercise Exercising [...] stroke). Where to find more information ? [place] [employer]: www.diabetes.org Summary ? Exercising regularly [...] provider. Document Revised: 01/12/2020 Document Reviewed: 01/12/2020 ElseLivrada Patient Education ? 2022 [employer] Preventing Hypoglycemia Hypoglycemia occurs when the level of sugar (glucose) in the blood is too low. Hypoglycemia can happen in people who do or do not have diabetes (diabetes (more content not included)...NormalSt. Rita'S HospitalTSHon 89-70-2601ZXF Qn 4.04 m[IU]/LNormal0.34-5.60St. [facility]'S HospitalComment on above:Performed By: #### [id number] ####[facility] [address] [place], [place] [address]Bwrlxqcmxm Visit Summaryon 75-21-4183Tdvplnmbyg Visit Summary SANNA RENDON :1985 Visit Date:02/15/2023 [...] PED When: In 2 months Where: [address] [place] [address]- You Need to Complete the Following HgbA1c, [...] miscarriage Suspected COVID-19 virus infection Vaginal tabitha [facility] Medicine Office/Clinic Noteon 02-41-2003Hciyus Medicine Office/Clinic NoteChief Complaint States since Sunday her right ear is draining and is a little painful 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 She is continuing 500 mg of metformin [...] Contact Information PRAVEEN Johnson (more content not included)...[facility] HospitalComment on above:Result Comment: Electronically Signed By: [...] cannot use soap and water, use hand blasting entry specialist. 2. Make sure your ears are clean [...] cannot use soap and water, use hand blasting entry specialist. Follow these instructions at home: ? Use [...] Reviewed: 02/11/2020 Elsevier Patient Education ? 2022 [employer] Infectious Disease Otitis Externa Otitis externa [...] you start to feel better. ? Take pylg-oqi-nipqyne and prescription medicines only as told by your doctor. ? Avoid getting water in your ears as told by your doctor. You may be told to avoid swimming or water sports for a few days. ? Keep all follow-up visits. How is this prevented? ? Keep your ears dry. Use the corner o (more content not included)...Normal St[facility]'S HospitalPatient Educationon 53-51-3532Umxwumv Education Immunology Fatigue If you have fatigue, [...] these instructions at home: Medicines ? Take ytmc-ouh-eixubgg and prescription medicines only as told by [...] the National Suicide Prevention Lifeline at or 393. This is open 24 hours a day. ? Text the Crisis Text Line at 394642. Summary ? If you have fatigue, you [...] provider. Document Revised: 02/06/2022 Document Reviewed: 02/06/2022 [employer] Patient Education ? 2022 [employer]. Urology Urodynamic Testing Urodynamic tests are [...] ? Leaking urine (inco (more content not included)...NormalSt. Rita'S HospitalCHEMISTRYOrdered By: SYSTEM SYSTEM on 99-97-0105Fkgr T4 [Mass/Vol]0.58 ng/dLNormal0.58 - 1.64 ng/dLFTMC RemisolTSH Qn3.35 m[IU]/LNormal0.34 - 5.60 mcIU/mLFTMC RemisolAlbumin [Mass/Vol]4.5 g/dLNormal3.3 - 5.0 gm/dLFTMC Remisol Albumin/Globulin [Mass ratio]1.4 {ratio}Normal1.1 - 2.2FTMC RemisolALP [Catalytic activity/Vol]62 [iU]/hXghajr05 - 98 Int._Unit/LFTMC RemisolALT No additional P-5'-P [Catalytic activity/Vol]27 [iU]/dNormal6 - 46 Int._Unit/LFTMC RemisolAnion gap [Moles/Vol]13 mmol/LNormal6 - 16 mEq/LFTMC RemisolAST [Catalytic activity/Vol]21 [iU]/dNormal5 - 43 Int._Unit/LFTMC RemisolBilirubin [Mass/Vol]0.3 mg/dLNormal0.0 - 1.1 mg/dLFTMC RemisolCalcium [Mass/Vol]9.6 mg/dL Normal8.9 - 11.1 mg/dLFTMC RemisolChloride [Moles/Vol]104 mmol/STnksny298 - 111 mmol/LFTMC RemisolCO2 [Moles/Vol]25 mmol/SPyzokc39 - 31 mmol/LFTMC Remisol Cobalamin (Vitamin B12) [Mass/Vol]211 pg/fYNmjyvc27 - 1500 pg/mLFTMC Remisol Creatinine [Mass/Vol]0.9 mg/dLNormal0.5 - 1.3 mg/dLFTMC RemisolFerritin [Mass/Vol]38 ng/fOIvprpi01 - 307 ng/mLFTMC RemisolFolate [Mass/Vol]13.5 ng/mL Normal>=6.7ng/mLFTMC RemisolGFR/1.73 sq M.predicted among non-blacks MDRD (S/P/Bld) [Vol rate/Area]85 mL/min/1.73 d0Kkjfnt>=59mL/min/1.73 m2FTMC Chem S Globulin (S) [Mass/Vol]3.3 g/dLNormal1.4 - 4.0 gm/dLFTMC RemisolGlucose [Mass/Vol]93 mg/gRKycpnm39 - 199 mg/dLFTMC RemisolIron [Mass/Vol]56 ug/dLNormal 35 - 153 mcg/dLFTMC RemisolIron binding capacity [Mass/Vol]395 ug/gTDilpgo571 - 400 mcg/dLFTMC RemisolPotassium [Moles/Vol]3.7 mmol/LNormal3.5 - 5.3 mmol/LFTMC RemisolProtein [Mass/Vol]7.8 g/dLNormal6.0 - 7.8 gm/dLFTMC RemisolSodium [Moles/Vol]138 mmol/YCmxfqp570 - 145 mmol/LFTMC RemisolTransferrin [Mass/Vol]282 mg/qYJlscko322 - 370 mg/dLFTMC RemisolUrea nitrogen [Mass/Vol]11 mg/dLNormal5 - 21 mg/dLFTMC RemisolUrea nitrogen/Creatinine [Mass ratio]12 mg/vzRzrvmg97 - 20 [facility] RemisolHEMATOLOGYOrdered By: SYSTEM SYSTEM on 65-49-2691Asotoqhjm/100 WBC (Bld)0.6 %Normal0.0 - 2.0 %[facility] HemeAutoSSBasophils/Leukocytes Auto (Bld) [Pure # fraction]0.0 E9/LNormal0.0 - 0.2 E9/LFTMC HemeAutoSSEosinophils/100 WBC (Bld) 1.1 %Normal0.0 - 8.0 %[facility] HemeAutoSSEosinophils/Leukocytes Auto (Bld) [Pure # fraction]0.1 E9/LNormal0.0 - 0.5 E9/LFTMC HemeAutoSSLymphocytes/100 WBC (Bld) 42.4 %Ebhlpg58.0 - 50.0 %[facility] HemeAutoSSLymphocytes/Leukocytes Auto (Bld) [Pure # fraction]3.4 E9/LNormal1.0 - 4.0 E9/LFTMC HemeAutoSSMonocytes/100 WBC (Bld)8.0 %Normal4.0 - 14.0 %[facility] HemeAutoSSMonocytes/Leukocytes Auto (Bld) [Pure # fraction]0.6 E9/LNormal0.2 - 1.0 E9/LFTMC HemeAutoSSNeutrophils/100 WBC (Bld) 47.9 %Zivwee26.0 - 75.0 %[facility] HemeAutoSSNeutrophils/Leukocytes Auto (Bld) [Pure # fraction]3.8 E9/LNormal2.0 - 7.5 E9/LFTMC HemeAutoSSHEMATOLOGYOrdered By: Trena Castro on 70-44-4999Wpwudovqqpe distribution width (RBC) [Ratio]14.5 % High10.9 - 14.2 %[facility] HemeAutoSSHematocrit (Bld) [Volume fraction]37.4 %Normal 34.0 - 46.0 %[facility] HemeAutoSSHemoglobin (Bld) [Mass/Vol]13.1 g/uXWlqnfk57.0 - 16.0 gm/dLFTMC HemeAutoSSMCH (RBC) [Entitic mass]30.6 wsLtzexa36.0 - 34.0 pgFTMC HemeAutoSSMCHC (RBC) [Mass/Vol]34.9 g/dXGhqpuk07.4 - 36.0 gm/dLFTMC HemeAutoSS MCV (RBC) [Entitic vol]87.7 eJQjlflr20.0 - 100.0 fLFTMC HemeAutoSSPlatelet mean volume (Bld) [Entitic vol]8.2 fLNormal6.4 - 10.8 fLFTMC HemeAutoSSPlatelets (Bld) [#/Vol]334.0 E9/SNuzjmf961.0 - 500.0 E9/LFTMC HemeAutoSSRBC (Bld) [#/Vol] 4.3 E12/LNormal4.3 - 5.9 E12/LFTMC HemeAutoSSWBC corrected for nucl RBC Auto (Bld) [#/Vol]7.9 E9/LNormal4.0 - 11.0 E9/LFTMC HemeAutoSSCHEMISTRYOrdered By: SYSTEM SYSTEM on 02-87-0833Mkax T4 [Mass/Vol]0.58 ng/dLNormal0.58 - 1.64 ng/dL [facility] RemisolTSH Qn3.10 m[IU]/LNormal0.34 - 5.60 mcIU/mLFTMC RemisolCHEMISTRY Ordered By: Valeri German on 40-09-2001GqI8t (Bld) [Mass fraction]5.9 %Normal <=5.9%[facility] ChemAutoSSCHEMISTRYOrdered By: SYSTEM SYSTEM on 56-78-3726Gdoy T4 [Mass/Vol]0.71 ng/dLNormal0.58 - 1.64 ng/dLFTMC RemisolTSH Qn3.77 m[IU]/LNormal 0.34 - 5.60 mcIU/mLFTMC RemisolCBC AUTO DIFFon 01-87-8136POPU #0.0 103/ulNormal 0.0-0.1The [facility]ull Memorial HospitalComment on above:Performed By: #### HIV12 #### [facility] [address] [place] [address] [address] Edward GillBasophils/100 WBC (Bld)0.4 %Normal0.2-2.0[facility] Comment on above:Performed By: #### HIV12 #### [facility] [address] [address] [address] Edward Traore #0.1 103/ulNormal0.0-0.7The [facility] HospitalComment on above: Performed By: #### HIV12 #### [facility] [address] [address] [address] Edward Calhounosinophils/100 WBC (Bld)1.3 %Normal0.9-7.0[facility] Comment on above:Performed By: #### HIV12 #### [facility] [address] [address] [address] Edward Calhounrythrocyte distribution width (RBC) [Ratio]16.6 %Critically high 11.0-15.0The [facility] HospitalComment on above:Performed By: #### HIV12 #### [facility] [address] [address] [address] Edward GillHematocrit (Bld) [Volume fraction]30.2 %Critically low36.0-48.0 The [facility] HospitalComment on above:Performed By: #### HIV12 #### [facility] [address] [address] [address] Edward GillHemoglobin (Bld) [Mass/Vol]10.5 g/dLCritically low12.0-16.0The [facility] HospitalComment on above:Performed By: #### HIV12 #### [facility] [address] [place] [address] Dr. Edward Ray #0.04 10e3/ulCritically high0.00-0.03[facility] Comment on above:Performed By: #### HIV12 #### [facility] [address] [place] [address] Dr. Edward Ray %0.4 %Normal0.0-0.5The [facility] HospitalComment on above: Performed By: #### HIV12 #### [facility] [address] [place] [address] Dr. Edward Velásquez #3.1 103/ulNormal1.2-3.8The [facility] HospitalComment on above:Performed By: #### HIV12 #### [facility] [address] [place] [address] Dr. Edward Alvarezhocytes/100 WBC (Bld)34.2 %Nvlzyf06.5-60.0[facility]tering Health Main CampusComment on above:Performed By: #### HIV12 #### [facility] [address] [place] [address] Dr. Edward SimmonsUAL DIFF REQNONormalThe [facility] HospitalComment on above: Performed By: #### HIV12 #### [facility] [address] [place] [address] Dr. Edward June (RBC) [Entitic mass]30.3 kxAgmgin88.7-34.0The [facility] HospitalComment on above:Performed By: #### HIV12 #### [facility] [address] [place] [address] Dr. Edward June (RBC) [Mass/Vol]34.8 g/sXOxwuyc18.9-35.2The [facility] HospitalComment on above:Performed By: #### HIV12 #### [facility] [address] [place] [address] Dr. Edward Desai (RBC) [Entitic vol]87.0 zNNbtyuu73.0-99.0The [facility] HospitalComment on above:Performed By: #### HIV12 #### [facility] [address] [place] [address] Dr. Edward Rosas #0.7 103/ulNormal0.3-0.8The [facility] HospitalComment on above:Performed By: #### HIV12 #### [facility] [address] [place] [address] Dr. Edward Ignacioocytes/100 WBC (Bld)7.5 %Normal1.7-12.0The [facility] Comment on above:Performed By: #### HIV12 #### [facility] [address] [place] [address] Dr. Edward Guevara #5.0 103/ulNormal1.4-6.5The [facility] HospitalComment on above:Performed By: #### HIV12 #### [facility] [address] [place] [address] Dr. Edward Moralesutrophils/100 WBC (Bld)56.2 %Gzzlao01.0-75.0The [facility] HospitalComment on above:Performed By: #### HIV12 #### [facility] [address] [place] [address] Dr. Edward Serranolet mean volume (Bld) [Entitic vol]9.8 fLNormal9.5-13.5The [facility] HospitalComment on above:Performed By: #### HIV12 #### [facility] [address] [place] [address] Dr. Edward GillPLT238 103/htUphjgz429-496Qjr [facility] HospitalComment on above: Performed By: #### HIV12 #### [facility] [address] [place] [address] Dr. Ewdard GillRBC3.47 106/ulCritically low4.20-5.40The [facility] HospitalComment on above:Performed By: #### HIV12 #### [facility] [address] [place] [address] Dr. Edward GillWBC9.0 103/ulNormal4.0-11.0The [facility] HospitalComment on above: Performed By: #### HIV12 #### [facility] [address] [place] [address] Dr. Edward GillFETAL SCREENon 42-33-1740VIILS SCREENNegativeEast [place] Regional HospitalComment on above:Performed By: #### FETSCRN #### [facility] [address] [place] [address] Dr. Edward GillDIRECT COOMBSon 15-49-9593KKRVBF COOMBSNegProMedica Bay Park HospitalComment on above:Performed By: #### DIRCMB #### [facility] [address] [place] [address] Dr. Edward GillPOINT OF CARE GLUCOSEon 47-43-6438Fhrlmsy [Mass/Vol]117 mg/dL Critically zeog14-755Dqe [facility] HospitalComment on above:Performed By: #### POCGLUC ####[facility] Fjanlxhxsx[address] [place], [place] [address]Dr. Edward GillTYPE AND SCREENon 23-13-8871SGKG AND SCREENNegativeEast [place] Regional HospitalComment on above:Performed By: #### TNS #### [facility] [address] [place] [address] Dr. Edward GillCBC AUTO DIFFon 67-73-6095BVHY #0.0 103/ulNormal0.0-0.1The [facility] HospitalComment on above:Performed By: #### HIV12 #### [facility] [address] [place] [address] Dr. Edward GillBasophils/100 WBC (Bld)0.2 %Normal0.2-2.0The [facility] Comment on above:Performed By: #### HIV12 #### [facility] [address] [place] [address] Dr. Edward Traore #0.0 103/ulNormal0.0-0.7The [facility] HospitalComment on above: Performed By: #### HIV12 #### [facility] [address] [place] [address] Dr. Edward Calhounosinophils/100 WBC (Bld)0.5 %Critically low0.9-7.0The [facility] HospitalComment on above:Performed By: #### HIV12 #### [facility] [address] [place] [address] Dr. Edward Calhounrythrocyte distribution width (RBC) [Ratio]16.1 %Critically high 11.0-15.0The [facility] HospitalComment on above:Performed By: #### HIV12 #### [facility] [address] [place] [address] Dr. Edward GillHematocrit (Bld) [Volume fraction]32.1 %Critically low36.0-48.0 The [facility] HospitalComment on above:Performed By: #### HIV12 #### [facility] [address] [place] [address] Dr. Edward GillHemoglobin (Bld) [Mass/Vol]11.7 g/dLCritically low12.0-16.0The [facility] HospitalComment on above:Performed By: #### HIV12 #### [facility] [address] [place] [address] Dr. Edward Ray #0.04 10e3/ulCritically high0.00-0.03The [facility] Comment on above:Performed By: #### HIV12 #### [facility] [address] [place] [address] Dr. Edward Ray %0.5 %Normal0.0-0.5The [facility] HospitalComment on above: Performed By: #### HIV12 #### [facility] [address] [place] [address] Dr. Edward Velásquez #2.4 103/ulNormal1.2-3.8The [facility] HospitalComment on above:Performed By: #### HIV12 #### [facility] [address] [place] [address] Dr. Edward Ronmphocytes/100 WBC (Bld)27.2 %Kcblfm13.5-60.0The [facility] HospitalComment on above:Performed By: #### HIV12 #### [facility] [address] [place] [address] Dr. Edward SimmonsUAL DIFF REQNONormalThe [facility] HospitalComment on above: Performed By: #### HIV12 #### [facility] [address] [place] [address] Dr. Edward De Leon (RBC) [Entitic mass]30.0 idGaccnr06.7-34.0The [facility] HospitalComment on above:Performed By: #### HIV12 #### [facility] [address] [place] [address] Dr. Edward June (RBC) [Mass/Vol]36.4 g/dLCritically high29.9-35.2The [facility] HospitalComment on above:Performed By: #### HIV12 #### [facility] [address] [place] [address] Dr. Edward Desai (RBC) [Entitic vol]82.3 mWUeheus57.0-99.0The [facility] HospitalComment on above:Performed By: #### HIV12 #### [facility] [address] [place] [address] Dr. Edward Rosas #0.7 103/ulNormal0.3-0.8The [facility] HospitalComment on above:Performed By: #### HIV12 #### [facility] [address] [place] [address] Dr. Edward Ignacioocytes/100 WBC (Bld)7.7 %Normal1.7-12.0The [facility] Comment on above:Performed By: #### HIV12 #### [facility] [address] [place] [address] Dr. Yilan ChangNEUT #5.5 103/ulNormal1.4-6.5The [facility] HospitalComment on above:Performed By: #### HIV12 #### [facility] [address] [place] [address] Dr. Edward Moralesutrophils/100 WBC (Bld)63.9 %Vhsomt01.0-75.0The [facility] HospitalComment on above:Performed By: #### HIV12 #### [facility] [address] [place] [address] Dr. Edward GillPlatelet mean volume (Bld) [Entitic vol]10.0 fLNormal9.5-13.5The [facility] HospitalComment on above:Performed By: #### HIV12 #### [facility] [address] [place] [address] Dr. Edward GillPLT274 103/mfRnhomo641-153Xsp [facility] HospitalComment on above: Performed By: #### HIV12 #### [facility] [address] [place] [address] Dr. Edward GillRBC3.90 106/ulCritically low4.20-5.40The [facility] HospitalComment on above:Performed By: #### HIV12 #### [facility] [address] [place] [address] Dr. Edward GillWBC8.7 103/ulNormal4.0-11.0The [facility] HospitalComment on above: Performed By: #### HIV12 #### [facility] [address] [place] [address] Dr. Edward GillCovid-19 PCR ([facility]VDTA[facility])on 96-59-8074LDAB-CoV-2 (COVID-19) RNA LELO+probe Ql (Unsp spec)Not detectedNormalNOT DETECTEDThe [facility] Comment on above:Result Comment: When diagnostic [...] for this test is supported by the Cannoneer of Health and Human Service's declaration that [...] longer be used).Performed By: #### HIV12 #### [facility] [address] [address] [address] Edward GillDRUG SCREEN RAPID (URINE)on [id number]K [facility] Main CampusComment on above:Performed By: #### DRUGRPD ####[facility] [address] [address] Edward GillBAR NegativeNormalNEGATIVELancaster Municipal Hospital HospitalComment on above:Performed By: #### DRUGRPD ####[facility] [address] [address] Edward GillBUPNegativeNormalNEGATIVEKettering Health Main CampusComment on above:Performed By: #### DRUGRPD ####[facility] [address] [address] Edward GillBZONegativeNormalNEGATIVEKettering Health Main CampusComment on above:Performed By: #### DRUGRPD ####[facility] [address] [address] Edward GillCOCNegative NormalNEGATIVEKettering Health Main CampusComment on above:Performed By: #### DRUGRPD ####[facility] Mnqntwnmzi[address] [place], [place] [address]Dr. Edward GillCUT-OFFSSEE BELOWEast [place] Regional HospitalComment on above:Result Comment: AMP (Amphetamine): 500ng/mL, BAR (Barbituates): 200 ng/mL, BZO (Benzodiazepines): 150 ng/mL, BUP (Buprenorphine): 10 ng/mL, INDIA (Cocaine): 150 ng/mL, mAMP (Methamphetamine): 500 ng/mL, MTD (Methadone): 200 ng/mL, OPI (Opiates): 100 ng/mL, OXY (Oxycodone): 100 ng/mL, PCP (Phencyclidine): 25 ng/mL, PPX (Propoxyphene): 300 ng/mL, THC (Cannabinoids): 50 ng/mL, TCA (Trycyclic Antidepressants): 300 ng/mLPerformed By: #### DRUGRPD ####[facility] Y[address]ikx[address] [place], [place] [address]Dr. Edward ChangDRUG CUT HEADERDRUG CLASS TEST SYSTEM CUT-OFF CONCENTRATIONS ARE FOLLOWS:NormalThe [facility]ias HospitalComment on above:Performed By: #### DRUGRPD ####[facility] Fcbbjosxhm[address] [place], [place] [address]Dr. Edward ChangmAMP NegativeNormalNEGATIVELancaster Municipal Hospital HospitalComment on above:Performed By: #### DRUGRPD ####[facility] Ddpqtznegs[address] [place], [place] [address]Dr. Yilan ChangMTDNegativeNormalNEGATIVELancaster Municipal Hospital HospitalComment on above:Performed By: #### DRUGRPD ####[facility] Cdjgpmopyl[address] [place], [place] [address]Dr. Yilan ChangOPINegativeNormalNEGATIVELancaster Municipal Hospital HospitalComment on above:Performed By: #### DRUGRPD ####[facility] Efsaehqnxv[address] [place], [place] [address]Dr. Yilan ChangOXYNegative NormalNEGATIVELancaster Municipal Hospital HospitalComment on above:Performed By: #### DRUGRPD ####[facility] Hkwkltimgm[address] [place], [place] [address]Dr. Yilan ChangPCPNegativeNormalNEGATIVELancaster Municipal Hospital HospitalComment on above: Performed By: #### DRUGRPD ####[facility] Mficjeamdc[address] [place], [place] [address]Dr. Yilan ChangPPXNegativeNormalNEGATIVELancaster Municipal Hospital HospitalComment on above:Performed By: #### DRUGRPD ####[facility] [address] [address]. Edward GillTCANegative NormalNEGATIVEKettering Health Main CampusComment on above:Performed By: #### DRUGRPD ####[facility] [address] [address]. Edward GillTHCNegativeNormalNEGATIVEKettering Health Main CampusComment on above: Performed By: #### DRUGRPD ####[facility] [address] [address]. Edward Sherwood PREG BIOPHY W NON STRESSon 53-52-8627ZR PREG BIOPHY W NON STRESSEXAMINATION: US PREG [...] Electronically authenticated by: HUMERA KIM Date: 2022-05-06 19:05[facility] PREG BIOPHY W NON STRESSon [id number] PREG BIOPHY W NON STRESSEXAMINATION: US PREG [...] Electronically authenticated by: ANGIE GALDAMEZ Date: 2022-05-01 16:16[facility] B STREP CULTUREon 04-23-2022. agalactiae Ag [...] Tetracycline >=16 R F Vancomycin =0.5 S FNormalKettering Health Main CampusComment on above:Performed By: #### GBSCX ####[facility] [address] [place], [place] [address]Cb. Edward GillUS PREG BIOPHY W NON STRESSon [id number] PREG BIOPHY W NON STRESSEXAMINATION: US PREG [...] Electronically authenticated by: HUMERA KIM Date: 2022-04-17 17:[address] [place] [address] PREG GROWTHon [id number] PREG GROWTHEXAMINATION: US PREG GROWTH HISTORY: Gestational [...] Electronically authenticated by: HUMERA KIM Date: 2022-04-17 16:49[facility] PREG BIOPHY W NON STRESSon [id number] PREG BIOPHY W NON STRESSEXAMINATION: US PREG [...] Electronically authenticated by: HUMERA KIM Date: 2022-04-12 08:56[facility] [place] Regional HospitalGLUCOSE, BLOOD (POC)on 78-99-9635Tcrnnsh [Mass/Vol]106 mg/dL Liivjhhg21 - 99 mg/dLOhioHealth [facility]erington [facility] PREG BIOPHY W NON STRESSon 12-49-9872CK PREG BIOPHY W NON STRESSEXAMINATION: US PREG [...] Electronically authenticated by: HUMERA KIM Date: 2022-04-01 16:08[facility] PREG BIOPHY W NON STRESSon 37-96-2506ID PREG BIOPHY W NON STRESSEXAMINATION: US PREG [...] Electronically authenticated by: HUMERA KIM Date: 2022-03-27 08:54[address] John Medical CenterUS PREG GROWTHon 50-02-0121UU PREG GROWTHEXAMINATION: US PREG GROWTH HISTORY: Maternal [...] Electronically authenticated by: HUMERA KIM Date: 2022-03-17 06:04[facility] [place] Regional HospitalTSHon 58-36-9912SRL4.586 uIU/mLNormal0.358-3.740The [facility] HospitalComment on above:Performed By: #### HIV12 #### [facility] [address] [place] [address] Dr. Edward GillTYPE AND SCREENon 35-90-0764TCPJ AND SCREENNegativeEast [place] Regional HospitalComment on above:Performed By: #### TNS #### [facility] [address] [place] [address] Dr. Edward iGllPAP ACOG PANEL 2: 30 to 65on 02-21-2022..NormalThe [facility] HospitalComment on above:Result Comment: Performed at: WBPerformed By: #### [id number] ####[facility] Mlebhimupg[address] [place], [place] [address]DrLazara Koenig Gdln ACOG Dsbimqe16-39HfsiocYtvThe [facility] on above:Performed By: #### [id number] ####[facility] Yjpqtgghtv[address] [place], [place] [address]Dr. Edward GillDIAGNOSIS:CommentVeterans Health Administration on above:Result Comment: NEGATIVE FOR INTRAEPITHELIAL LESION OR MALIGNANCY. Performed at: WBPerformed By: #### [id number] ####[facility] Dfizdhmkjy[address] [place], [place] [address]Dr. Edward GillHPV AptimaNegativeNormal NegativeThe [facility] on above:Result Comment: This nucleic acid amplification test detects fourteen high-risk HPV types (16,18,31,33,35,39,45,51,52,56,58,59,66,68) without differentiation. Performed at: =GPerformed By: #### [id number] ####[facility] Nwzafxrpfx[address] [place], [place] [address]Dr. Edward GillMethodology:CommentVeterans Health Administration on above:Result Comment: This liquid based ThinPrep(R) pap test was screened with the use of an image guided system. Performed at: WBPerformed By: #### [id number] ####[facility] Ktxzdiomws[address] [place], [place] [address]Dr. Edward GillNote:CommentVeterans Health Administration on above:Result Comment: The Pap smear is a screening test designed to aid in the detection of premalignant and malignant conditions of the uterine cervix. It is not a diagnostic procedure and should not be used as the sole means of detecting cervical cancer. Both false-positive and false-negative reports do occur. . Performed at: WBPerformed By: #### [id number] ####[facility] Gmrzmclxvv[address] [place], [place] [address]Dr. Edward ChangPerformed by:CommentVeterans Health Administration on above:Result Comment: Zenaida Diop, [employer] Professor (ASCP) Performed at: WBPerformed By: #### [id number] ####[facility] [address]qanrlkc[address] [place], [place] [address]Dr. Edward GillSpecimen adequacy:Comment NormalKettering Health Main CampusComment on above:Result Comment: Satisfactory for evaluation. No endocervical component is identified. Performed at: WBPerformed By: #### [id number] ####[facility] Lnjjxatxqp[address] [place], [place] [address]Dr. Edward GillCHLAMYDIA/GONOCOCCUS LELO (SWAB/URINE/PAPon 45-37-9671Mjlhlezed trachomatis, NAANegativeNormalNegativeKettering Health Main CampusComment on above:Performed By: #### CT/NGNA ####[facility] Fhkmugbase[address] [place], [place] [address]Dr. Edward Gill Neisseria gonorrhoeae, NAANegativeNormalNegativeKettering Health Main CampusComment on above:Performed By: #### CT/NGNA ####[facility] Fbtdegluyh[address] [place], [place] [address]Dr. Edward GillVAGINITIS/VAGINOSIS DNA PROBEon 95-49-4217Bnxjpmh speciesNegativeNormalNegativeKettering Health Main CampusComment on above:Performed By: #### VAGINT ####[facility] Wprkbwvwwi[address] [place], [place] [address]Dr. Edward GillGardnerella vaginalisNegativeNormal NegativeThe [facility] HospitalComment on above:Performed By: #### VAGINT ####[facility] Myzktclbhy[address] [place], [place] [address]Dr. Edward GillTrichomonas vaginalisNegativeNormalNegativeKettering Health Main Campus Comment on above:Performed By: #### VAGINT ####[facility] Nvkkaksmwg[address] [place], [place] [address]Dr. Edward GillTSHon 33-10-4817ERV2.536 uIU/mLNormal0.358-3.740The [facility] HospitalComment on above:Performed By: #### TSH ####[facility] [address] [place], [place] [address]Vw. Edward JairoGLUCOSE - 1HRon 94-54-0809Ozggaxl [Mass/Vol]160 mg/dLCritically high 74-106[facility] CampusComment on above:Performed By: #### GLU1HR ####[facility] [address] [id number] Edward SepulvedaHon 13-15-7241GLV2.899 uIU/mLNormal0.358-3.740[facility] Comment on above:Performed By: #### HIV12 #### [facility] [address] [address] [address] Edward Garcia, [facility] 44-42-9244Ytyhxhlrqw byUltVeterans Affairs Medical CenterComment on above:Performed By: #### AAFPM #### [address] [address] Leaf Tier: Pancho Cano MD [address] [address] Leaf Tier: Yosvany ArriagaPremier Health Miami Valley Hospital SouthComment on above:Result Comment: Results for Estimated Due Date: 05 13 22Performed By: #### AAFPM #### [address] [address] Leaf Tier: Pancho Cano MD [facility] [address] [place] [address] Leaf Tier: Danelle ArriagaOhio State Health SystemComment on above:Performed By: #### AAFPM #### [address] [address] Leaf Tier: Pancho Cano MD [facility] [address] [place], [place] [id number] Leaf Tier: Zhang Bledsoe MDGestat Age (exact)15 wks, 2 daysNoKettering Health MiamisburgComment on above:Performed By: #### AAFPM #### [facility] [address] [place] [address] Leaf Tier: Pancho Cano MD [address] [id number] Leaf Tier: Zhang Bledsoe MDIns Req Matern DiabAvita Health SystemComment on above:Performed By: #### AAFPM #### [facility] [address] [address] Leaf Tier: Pancho Cano MD [address] [address] Leaf Tier: Zhang Bledsoe MDInterpretationScreen [facility]erm[facility] HospitalComment on above:Result Comment: (NOTE) INTERPRETATION: SCREEN NEGATIVE for open spina bifida Neural Tube Defects (NTD) Negative Pre-Test Post-Test Cutoff Neural Tube Defects Risks 1:1030 1:2690 1:250 Comments: The risk of an open neural tube defect is less than the screening cut-off. This test was developed and its performance characteristics determined by [employer]. It has not been cleared or approved by the [place] Food and Drug Administration. This test was performed in a CLIA certified laboratory and is intended for clinical purposes.Performed By: #### AAFPM #### [facility] [address] [address] Leaf Tier: Pancho Cano MD [address] [phone] Leaf Tier: Osmar Arriagaternal Age at Del36.6 yrRegency Hospital ToledoComment on above:Performed By: #### AAFPM #### [facility] [address] [address] Leaf Tier: Pancho Cano MD [address] [phone] Leaf Tier: Osmar Arriagabakersfield memorial hospital RaceNonblackNoKettering Health MiamisburgComment on above:Performed By: #### AAFPM #### [facility] [address] [place] [address] Leaf Tier: Pancho Cano MD [facility] [address] [place] [address] Leaf Tier: Osmar Arriagabakersfield memorial hospital Hvulzz404.0 lbs.NormalZanesville City HospitalComment on above:Performed By: #### AAFPM #### [facility] [address] [place] [address] Leaf Tier: Pancho Cano MD [facility] [address] [place] [address] Leaf Tier: BAKARI Arriaga for AFP1.52NormAccess Hospital DaytonComment on above:Performed By: #### AAFPM #### [facility] [address] [place] [address] Leaf Tier: Pancho Cano MD [address] [address] Leaf Tier: Zhang Bledsoe MDNumber of FetusesSingletonNoKettering Health MiamisburgComment on above:Performed By: #### AAFPM #### [facility] [address] [address] Leaf Tier: Pancho Cano MD [facility] [facility] [address] [place] [address] Leaf Tier: Smith Arriaga's AFP35 ng/mLNormalZanesville City HospitalComment on above:Performed By: #### AAFPM #### [facility] [address] [place] [address] Leaf Tier: Pancho Cano MD [facility] [address] [place] [address] Leaf Tier: NIKITA ArriagaCincinnati Children's Hospital [facility] Comment on above:Performed By: #### AAFPM #### [address] [address] Leaf Tier: Pancho Cano MD [address] [phone] Leaf Tier: Azucena ArriagaMemorial Health System Marietta Memorial HospitalComment on above:Result Comment: (NOTE) Initial sample Performed by [facility], [address] [place] [address] [id number] [email or web address], Yayo Moncada MD, PHD, Lab. DirectorPerformed By: #### AAFPM #### [address] [address] Leaf Tier: Pancho Cano MD [address] [phone] Leaf Tier: Zhang Bledsoe MDAMeritus Medical Center 01-20-7805Bkc[address] [place], [place] [address]Comment on above:Performed By: #### AAFPM #### [address] [address] Leaf Tier: Pancho Cano MD [address] [phone] Leaf Tier: SHIVA ArriagaAvita Health System [facility] Comment on above:Performed By: #### AAFPM #### [facility] [address] [address] Leaf Tier: Pancho Cano MD [address] [phone] Leaf Tier: Zhang Bledsoe [facility] Comment on above:Performed By: #### AAFPM #### [address] [address] Leaf Tier: Pancho Cano MD [facility] [address] [place] [address] Leaf Tier: SHIVA Arriagaonojeanine EggINFORMATION NOT PROVIDEDRegency Hospital ToledoComment on above:Performed By: #### AAFPM #### [facility] [address] [place] [address] Leaf Tier: Pancho Cano MD [facility] [address] [place] [address] Leaf Tier: Zhang Bledsoe MDEstimbanner behavioral health hospital Due [id number] Hospital ToledoComment on above:Performed By: #### AAFPM #### [facility] [address] [address] Leaf Tier: Pancho Cano MD [facility] [address] [place] [address] Leaf Tier: Zhang Bledsoe MDEssex Hospital HistoryNegativeRegency Hospital ToledoComment on above:Performed By: #### AAFPM #### [facility] [address] [place] [address] Leaf Tier: Pancho Cano MD [facility] [address] [place] [address] Leaf Tier: Zhang Bledsoe MDIn Vitro FertalizatINFORMATION NOT PROVIDEDRegency Hospital CompanyComment on above:Performed By: #### AAFPM #### [facility] [address] [place] [address] Leaf Tier: Pancho Cano MD [facility] [address] [place] [address] Leaf Tier: Zhang Bledsoe MDWALLOWA MEMORIAL [facility]PITAL [id number] Hospital ToledoComment on above:Performed By: #### AAFPM #### [facility] [address] [place] [address] Leaf Tier: Pancho Cano MD [facility] [address] [place] [address] Leaf Tier: Zhang Bledsoe MDMaternal [id number] Hospital ToledoComment on above:Performed By: #### AAFPM #### [facility] [address] [place] [address] Leaf Tier: Pancho Cano MD [facility] [address] [place] [address] Leaf Tier: Osmar Arriagaternal Xxvdqs546VvavznDyzevRegency Hospital ToledoComment on above:Performed By: #### AAFPM #### [facility] [address] [place] [address] Leaf Tier: Pancho Cano MD [facility] [address] [place] [address] Leaf Tier: BAKARI Arriagaonochorionic TwinsAshtabula County Medical CenterComment on above:Performed By: #### AAFPM #### [facility] [address] [place] [address] Leaf Tier: Pancho Cano MD [facility] [address] [place] [address] Leaf Tier: Zhang Bledsoe [facility] HOSPITALatient Weight UnitsLBSRegency Hospital ToledoComment on above:Performed By: #### AAFPM #### [facility] [address] [place] [address] Leaf Tier: Pancho Cano MD [facility] [address] [place] [address] Leaf Tier: LUIS Arriagaace (Maternal)WHITERegency Hospital ToledoComment on above:Performed By: #### AAFPM #### [facility] [address] [place] [address] Leaf Tier: Pancho Cano MD [facility] [address] [place] [address] Leaf Tier: Jay Arriaga SpecimenINFORMATION NOT [facility] HospitalComment on above:Performed By: #### AAFPM #### [facility] [address] [place] [address] Leaf Tier: Pancho Cano MD [facility] [address] [place] [address] Leaf Tier: Zhang Bledsoe MDValproic/CarbamazepINFORMATION NOT [facility] Communities HospitalComment on above:Performed By: #### AAFPM #### [facility] [address] [address] Leaf Tier: Pancho Cano MD [facility] [address] [place] [address] Leaf Tier: JIMENEZ Arriaga Single Marker Scrn, Maternal, Serumon 29-27-0991VuzBgreteFulton County Medical CenterCarrier Study Non-ProMedicaon 54-81-9560Fte[address]zwz[address] [place] [address] MISCELLANEOUS TESTINGon 40-84-0879Yyxs Out ReportFWD TO [facility] [place] [address] [place], [place] [address]Test NameNATERA BON SECOURS RICHMOND COMMUNITY HOSPITALMiscellaneouson 47-88-5685Rbac Out ReportFWD TO [facility] [place] [address] [place], [place] [address]Comment on above:Performed By: #### CMIS #### [facility] [address] [place] [address] Leaf Tier: Pancho Cano MDTest Marion HospitalComment on above:Performed By: #### CMIS #### [facility] [address] [place] [address] Leaf Tier: RAJ Choi B SURFACE ANTIGEN SCREENon 49-38-7626EHtDg ScreenNegativeNormalNegativeThe [facility] on above:Performed By: #### HIV12 #### [facility] [address] [place] [address] Dr. Edward FranklinPATITIS C VIRUS AB W/ REFLEX QUANTon 14-82-7630DHA AB<0.1Normal 0.0-0.9The [facility] on above:Performed By: #### HCVPCRR ####[facility] [address] [address]DrLazara GillInterpretation:CommentNormalThe [facility] on above: Result Comment: Negative Not infected with HCV, unless recent infection is suspected or other evidence exists to indicate HCV infection.Performed By: #### HCVPCRR ####[facility] [address] [address]DrLazara GillHIV 1 AND 2 WITH REFLEXon 26-89-5216GVF Screen 4th Generation wRfx Non-ReactiveNormalNon ReactiveThe [facility] on above:Result Comment: HIV Negative HIV-1/HIV-2 antibodies and HIV-1 p24 antigen were NOT detected. There is no laboratory evidence of HIV infection.Performed By: #### HIV12 #### [facility] [address] [place] [address] Dr. Edward GillRPJeanine QUANTon 71-78-0211Uqywm Plasma Reagin, QuantNon-Reactive NormalNonRea<1:1The [facility] on above:Result Comment: Please Note: This test does not meet current guidelines for screening and diagnosis of syphilis. This test is intended for following treatment response in patients being treated for syphilis infection. To screen for syphilis infection, a reflex cascade that includes both RPR and a treponema-specific assay should be utilized, such as Treponema pallidum (Syphilis) Screening [place] (276266) or Rapid Plasma Reagin (RPR) Test With Reflex to Quantitative RPR and Confirmatory Treponema pallidum Antibodies (263333).Performed By: #### RPRQ ####[facility] [address] [address]Dr. Edward OspinaBELLA AB IGG on 35-52-5420Aoxesgz Antibodies, IgG1.02 indexNormalImmune >0.99The [facility] HospitalComment on above:Result Comment: Non-immune <0.90 Equivocal 0.90 - 0.99 Immune >0.99Performed By: #### RUBIGG ####[facility] [address] [address]Dr. Edward AlfaroC AUTO DIFFon 61-26-4606PXUR # 0.0 103/ulNormal0.0-0.1The [facility] HospitalComment on above:Performed By: #### HIV12 #### [facility] [address] [place] [address] Dr. Edward GillBasophils/100 WBC (Bld)0.3 %Normal0.2-2.0[facility] Comment on above:Performed By: #### HIV12 #### [facility] [address] [place] [address] Dr. Edward Traore #0.1 103/ulNormal0.0-0.7The [facility] HospitalComment on above: Performed By: #### HIV12 #### [facility] [address] [place] [address] Dr. Edward Calhounosinophils/100 WBC (Bld)0.6 %Critically low0.9-7.0The [facility] HospitalComment on above:Performed By: #### HIV12 #### [facility] [address] [place] [address] Dr. Edward Calhounrythrocyte distribution width (RBC) [Ratio]14.1 %Mzcdrq44.0-15.0 The [facility] HospitalComment on above:Performed By: #### HIV12 #### [facility] [address] [place] [address] Dr. Edward GillHematocrit (Bld) [Volume fraction]36.2 %Uywlci71.0-48.0The [facility] HospitalComment on above:Performed By: #### HIV12 #### [facility] [address] [place] [address] Dr. Edward GillHemoglobin (Bld) [Mass/Vol]12.5 g/zTAqzzbd73.0-16.0The [facility] HospitalComment on above:Performed By: #### HIV12 #### [facility] [address] [place] [address] Dr. Edward Ray #0.05 10e3/ulCritically high0.00-0.03The [facility] Comment on above:Performed By: #### HIV12 #### [facility] [address] [place] [address] Dr. Edward Ray %0.4 %Normal0.0-0.5The [facility] HospitalComment on above: Performed By: #### HIV12 #### [facility] [address] [place] [address] Dr. Edward Velásquez #2.7 103/ulNormal1.2-3.8The [facility] HospitalComment on above:Performed By: #### HIV12 #### [facility] [address] [place] [address] Dr. Edward Alvarezhocytes/100 WBC (Bld)23.2 %Nzzadr07.5-60.0The [facility] HospitalComment on above:Performed By: #### HIV12 #### [facility] [address] [place] [address] Dr. Edward SimmonsUAL DIFF REQNONormalThe [facility] HospitalComment on above: Performed By: #### HIV12 #### [facility] [address] [place] [address] Dr. Edward June (RBC) [Entitic mass]30.6 xnLygars46.7-34.0The [facility] HospitalComment on above:Performed By: #### HIV12 #### [facility] [address] [place] [address] Dr. Edward June (RBC) [Mass/Vol]34.5 g/fWIdusfk54.9-35.2The Piyush HospitalComment on above:Performed By: #### HIV12 #### [facility] [address] [place] [address] [address] Edward JuneV (RBC) [Entitic vol]88.7 oZWxqrci38.0-99.0The [facility] HospitalComment on above:Performed By: #### HIV12 #### [facility] [address] [place] [address] Dr. Edward Rosas #0.7 103/ulNormal0.3-0.8The [facility] HospitalComment on above:Performed By: #### HIV12 #### [facility] [address] [place] [address] Dr. Edward Ignacioocytes/100 WBC (Bld)5.8 %Normal1.7-12.0The [facility] Comment on above:Performed By: #### HIV12 #### [facility] [address] [place] [address] Dr. Edward Guevara #8.0 103/ulCritically high1.4-6.5The [facility] Comment on above:Performed By: #### HIV12 #### [facility] [address] [place] [address] Dr. Edward Moralesutrophils/100 WBC (Bld)69.7 %Mjjhyv31.0-75.0The [facility] HospitalComment on above:Performed By: #### HIV12 #### [facility] [address] [place] [address] Dr. Edward Serranolet mean volume (Bld) [Entitic vol]9.3 fLCritically low 9.5-13.5ThCincinnati Children's Hospital Medical CenterComment on above:Performed By: #### HIV12 #### [facility] [address] [place] [address] Dr. Edward GillPLT338 103/nrFinesm058-062Ybn [facility] HospitalComment on above: Performed By: #### HIV12 #### [facility] [address] [place] [address] Dr. Edward GillRBC4.08 106/ulCritically low4.20-5.40The [facility] on above:Performed By: #### HIV12 #### [facility] [address] [address] [address] Edward SaulBC11.4 103/ulCritically high4.0-11.0The [facility]acon[facility] Hospitalment on above:Performed By: #### HIV12 #### [facility] [address] [place] [address] Dr. Edward GillCULTJEYSON URINEon 78-43-8426BOLCLXV URINECulture Observations: LIGHT GROWTH OF MIXED GENITAL MARTHA. NO POTENTIAL PATHOGENS SEEN.NormalThe [facility]aconess Hospitalment on above:Performed By: #### URCX #### [facility] [address] [place] [address] Dr. Edward GillGLYCOHEMOGLOBIN A1Con 89-44-0224NMK RECOMMENDATIONSEE BELOWNormal The [facility] HospitalComascension providence hospital on above:Result Comment: ADA RECOMMENDED LIMIT 4.0 - 6.0 ADA THERAPEUTIC TARGET < 7.0 ACTION SUGGESTED > 7.0Performed By: #### A1C #### [facility] [address] [place] [address] Dr. Edward GillGlucose [Mass/Vol]117 mg/dLNormalThe [facility] HospitalComascension providence hospital on above:Performed By: #### A1C #### [facility] [address] [place] [address] Dr. Edward GillHbA1c (Bld) [Mass fraction]5.7 %Normal4.5-6.2The [facility] on above:Performed By: #### A1C #### [facility] [address] [place] [address] Dr. Edward Nair BOX TEST PT SEND OUTon 60-79-1228TYPM TO REF LAB10/25/2021 NormalC[facility]innati [facility] on above:Performed By: #### HIV12 #### [facility] [address] [place] [address] Dr. Edward GillTSHodru 70-47-6031JJO0.700 uIU/mLNormal0.358-3.740The Tobias HospitalComment on above:Performed By: #### TSH ####[facility] [address] [id number] GillTYPE AND SCREEN on 32-09-7531EJTG AND SCREENNegativeVeterans Health Administration on above: Performed By: #### TNS ####[facility] [address] [address]Dr.Edward GillUS PREG TVon 11-15-0432CR PREG TV EXAMINATION: US PREG TV HISTORY: [...] Electronically authenticated by: HUMERA KIM Date: 2021-09-23 10:27[facility] HospitalPREG QUANT HCGon 15-92-6443EEE XEUFM3027 mIU/mLNormalKettering Health Main CampusComascension providence hospital on above:Performed By: #### HIV12 #### [facility] [address] [address] [address] Edward GillHCG RANGESEE BELOWEast Ohio Regional HospitalComment on above: Result Comment: 5-50 0-1 WEEK 40-300 1-2 WEEKS 100-1,000 2-3 WEEKS 500-6,000 3-4 WEEKS 5,000-200,000 1-2 MONTHS 10,000-100,000 2-3 MONTHS 3,000-50,000 2ND TRIMESTER 1,000-50,000 3RD TRIMESTERPerformed By: #### HIV12 #### [facility] [address] [address] [address] Edward GillCHEMISTRYOrdered By: SYSTEM SYSTEM on 84-43-7944Hmsmq gap [Moles/Vol]15 mmol/LNormal6 - 16 mEq/LFTMC RemisolCalcium [Mass/Vol]9.5 mg/dL Normal8.9 - 11.1 mg/dLFT RemisolChloride [Moles/Vol]102 mmol/YKynkly511 - 111 mmol/LFTMC RemisolCO2 [Moles/Vol]22 mmol/IGtodvm04 - 31 mmol/LFTMC Remisol Creatinine [Mass/Vol]0.9 mg/dLNormal0.5 - 1.3 mg/dLFT RemisolGFR/1.73 sq M.predicted among blacks MDRD (S/P/Bld) [Vol rate/Area]mL/min/1.73 f3Ceikpd >=59mL/min/1.73 m2[facility] Chem SGFR/1.73 sq M.predicted among non-blacks MDRD (S/P/Bld) [Vol rate/Area]mL/min/1.73 b7Nqydta>=59mL/min/1.73 m2[facility] Chem S Glucose [Mass/Vol]85 mg/qBIbqrrf67 - 199 mg/dLFT RemisolPotassium [Moles/Vol] 3.9 mmol/LNormal3.5 - 5.3 mmol/LFTMC RemisolSodium [Moles/Vol]135 mmol/LNormal 135 - 145 mmol/LFTMC RemisolUrea nitrogen [Mass/Vol]6 mg/dLNormal5 - 21 mg/dL [facility] RemisolUrea nitrogen/Creatinine [Mass ratio]7 mg/mgLow10 - 20FT Remisol HEMATOLOGYOrdered By: SYSTEM SYSTEM on 47-44-4703Iyfyovnpt/100 WBC (Bld)0.5 % Normal0.0 - 2.0 %[facility] HemeAutoSSBasophils/Leukocytes Auto (Bld) [Pure # fraction]0.0 E9/LNormal0.0 - 0.2 E9/LFTMC HemeAutoSSEosinophils/100 WBC (Bld)0.6 %Normal0.0 - 8.0 %[facility] HemeAutoSSEosinophils/Leukocytes Auto (Bld) [Pure # fraction]0.1 E9/LNormal0.0 - 0.5 E9/LFTMC HemeAutoSSLymphocytes/100 WBC (Bld) 36.8 %Yvygnv38.0 - 50.0 %[facility] HemeAutoSSLymphocytes/Leukocytes Auto (Bld) [Pure # fraction]2.9 E9/LNormal1.0 - 4.0 E9/LFTMC HemeAutoSSMonocytes/100 WBC (Bld)8.7 %Normal4.0 - 14.0 %[facility] HemeAutoSSMonocytes/Leukocytes Auto (Bld) [Pure # fraction]0.7 E9/LNormal0.2 - 1.0 E9/LFTMC HemeAutoSSNeutrophils/100 WBC (Bld) 53.4 %Tvejzg64.0 - 75.0 %[facility] HemeAutoSSNeutrophils/Leukocytes Auto (Bld) [Pure # fraction]4.2 E9/LNormal2.0 - 7.5 E9/LFTMC HemeAutoSSHEMATOLOGYOrdered By: Isha Yates on 77-11-9065Rpbgxwegdor distribution width (RBC) [Ratio]14.6 %High10.9 - 14.2 %[facility] HemeAutoSSHematocrit (Bld) [Volume fraction]36.4 %Normal 34.0 - 46.0 %[facility] HemeAutoSSHemoglobin (Bld) [Mass/Vol]12.6 g/lEPgyrdw52.0 - 16.0 gm/dLFTMC HemeAutoSSMCH (RBC) [Entitic mass]29.9 wtEewplw68.0 - 34.0 pgFTMC HemeAutoSSMCHC (RBC) [Mass/Vol]34.6 g/yEVxynds38.4 - 36.0 gm/dLFTMC HemeAutoSS MCV (RBC) [Entitic vol]86.6 jAMdythj68.0 - 100.0 fLFTMC HemeAutoSSPlatelet mean volume (Bld) [Entitic vol]8.2 fLNormal6.4 - 10.8 fLFTMC HemeAutoSSPlatelets (Bld) [#/Vol]367.0 E9/ZDcuxck134.0 - 500.0 E9/LFTMC HemeAutoSSRBC (Bld) [#/Vol] 4.2 E12/LLow4.3 - 5.9 E12/LFTMC HemeAutoSSWBC corrected for nucl RBC Auto (Bld) [#/Vol]7.9 E9/LNormal4.0 - 11.0 E9/LFTMC HemeAutoSSPREG QUANT HCGon 08-29-2021 HCG FNQXF026 mIU/mLNormalKettering Health Main CampusComment on above:Performed By: #### PREGQNT ####[facility] [address] [address]Dr. Edward Lim CentervilleComment on above:Result Comment: 5-50 0-1 WEEK 40-300 1-2 WEEKS 100-1,000 2-3 WEEKS 500- 6,000 3-4 WEEKS 5,000-200,000 1-2 MONTHS 10,000-100,000 2-3 MONTHS 3,000-50,000 2ND TRIMESTER 1,000-50,000 3RD TRIMESTERPerformed By: #### PREGQNT ####[facility] [address] [place], [place] [address]Dr. Edward GillPREWily QUANT HCGon 38-36-4602PQU QUANT99 mIU/mLNDayton Children's HospitalComment on above:Performed By: #### HIV12 #### [facility] [address] [address] [address] Edward Lim CentervilleComasc[facility] on above: Result Comment: 5-50 0-1 WEEK 40-300 1-2 WEEKS 100-1,000 2-3 WEEKS 500-6,000 3-4 WEEKS 5,000-200,000 1-2 MONTHS 10,000-100,000 2-3 MONTHS 3,000-50,000 2ND TRIMESTER 1,000-50,000 3RD TRIMESTERPerformed By: #### HIV12 #### [facility] [address] [address] [address] Edward Cross QUANT HCGon 37-61-1931HXX QUANT37 mIU/mLNDayton Children's HospitalComascension providence hospital on above:Performed By: #### PREGQNT ####[facility] Vdrfqk[address] [place], [place] [address]Dr. Edward Lim RANGESEE BELOWNormalThe Piyush HospitalComment on above:Result Comment: 5-50 0-1 WEEK 40-300 1-2 WEEKS 100-1,000 2-3 WEEKS 500-6,000 3-4 WEEKS 5,000-200,000 1-2 MONTHS 10,000-100,000 2-3 MONTHS 3,000-50,000 2ND TRIMESTER 1,000-50,000 3RD TRIMESTERPerformed By: #### PREGQNT ####[facility] [address] [address]DrLazara Leon ChangCHEMISTRYOrdered By: SYSTEM SYSTEM on 33-97-5685Nksmnzu [Mass/Vol]4.5 g/dLNormal3.3 - 5.0 gm/dLFTMC Remisol Albumin/Globulin [Mass ratio]1.2 {ratio}Normal1.1 - 2.2FTMC RemisolALP [Catalytic activity/Vol]53 [iU]/cZfpkqu67 - 98 Int._Unit/LFTMC RemisolALT No additional P-5'-P [Catalytic activity/Vol]24 [iU]/dNormal6 - 46 Int._Unit/LFTMC RemisolAnion gap [Moles/Vol]13 mmol/LNormal6 - 16 mEq/LFTMC RemisolAST [Catalytic activity/Vol]20 [iU]/dNormal5 - 43 Int._Unit/LFTMC RemisolBilirubin [Mass/Vol]0.6 mg/dLNormal0.0 - 1.1 mg/dLFTMC RemisolCalcium [Mass/Vol]9.4 mg/dL Normal8.9 - 11.1 mg/dLFTMC RemisolChloride [Moles/Vol]97 mmol/MJym940 - 111 mmol/LFTMC RemisolCO2 [Moles/Vol]24 mmol/NAjxryu03 - 31 mmol/LFTMC Remisol Creatinine [Mass/Vol]0.8 mg/dLNormal0.5 - 1.3 mg/dLFTMC RemisolGFR/1.73 sq M.predicted among blacks MDRD (S/P/Bld) [Vol rate/Area]mL/min/1.73 s2Rfrrgl >=59mL/min/1.73 m2FT Chem SGFR/1.73 sq M.predicted among non-blacks MDRD (S/P/Bld) [Vol rate/Area]mL/min/1.73 k6Vvmntm>=59mL/min/1.73 m2[facility] Chem S Globulin (S) [Mass/Vol]3.7 g/dLNormal1.4 - 4.0 gm/dLFTMC RemisolGlucose [Mass/Vol]74 mg/vEUodvvm24 - 199 mg/dLHARPER COUNTY [facility] RemisolMagnesium [Mass/Vol]2.0 mg/dL Normal1.3 - 2.4 mg/dLFTMC RemisolPotassium [Moles/Vol]3.5 mmol/LNormal3.5 - 5.3 mmol/LFTMC RemisolProtein [Mass/Vol]8.2 g/dLHigh6.0 - 7.8 gm/dLFT Remisol Sodium [Moles/Vol]130 mmol/YRis244 - 145 mmol/LFTMC RemisolTSH Qn4.56 m[IU]/L Normal0.34 - 5.60 mcIU/mLHARPER COUNTY [facility] RemisolUrea nitrogen [Mass/Vol]7 mg/dLNormal5 - 21 mg/dLFTMC RemisolUrea nitrogen/Creatinine [Mass ratio]9 mg/mgLow10 - 20FTMC RemisolHEMATOLOGYOrdered By: SYSTEM SYSTEM on 13-94-1863Unhrdfkpq/100 WBC (Bld) 0.3 %Normal0.0 - 2.0 %[facility] HemeAutoSSBasophils/Leukocytes Auto (Bld) [Pure # fraction]0.0 E9/LNormal0.0 - 0.2 E9/LFTMC HemeAutoSSEosinophils/100 WBC (Bld)0.5 %Normal0.0 - 8.0 %[facility] HemeAutoSSEosinophils/Leukocytes Auto (Bld) [Pure # fraction]0.0 E9/LNormal0.0 - 0.5 E9/LFTMC HemeAutoSSLymphocytes/100 WBC (Bld) 35.9 %Sgpgrq07.0 - 50.0 %[facility] HemeAutoSSLymphocytes/Leukocytes Auto (Bld) [Pure # fraction]3.2 E9/LNormal1.0 - 4.0 E9/LFTMC HemeAutoSSMonocytes/100 WBC (Bld)8.8 %Normal4.0 - 14.0 %[facility] HemeAutoSSMonocytes/Leukocytes Auto (Bld) [Pure # fraction]0.8 E9/LNormal0.2 - 1.0 E9/LFTMC HemeAutoSSNeutrophils/100 WBC (Bld) 54.5 %Exwuoz25.0 - 75.0 %[facility] HemeAutoSSNeutrophils/Leukocytes Auto (Bld) [Pure # fraction]4.8 E9/LNormal2.0 - 7.5 E9/LFTMC HemeAutoSSHEMATOLOGYOrdered By: Trena Castro on 40-24-8103Fartimppjvr distribution width (RBC) [Ratio]14.1 % Qxrslj33.9 - 14.2 %[facility] HemeAutoSSHematocrit (Bld) [Volume fraction]38.5 %Normal 34.0 - 46.0 %[facility] HemeAutoSSHemoglobin (Bld) [Mass/Vol]13.1 g/zXElswkg57.0 - 16.0 gm/dLFTMC HemeAutoSSMCH (RBC) [Entitic mass]29.4 ztAboufj02.0 - 34.0 pgFTMC HemeAutoSSMCHC (RBC) [Mass/Vol]34.1 g/tDBlmvbs26.4 - 36.0 gm/dLFTMC HemeAutoSS MCV (RBC) [Entitic vol]86.0 aCYlhpwx70.0 - 100.0 fLFTMC HemeAutoSSPlatelet mean volume (Bld) [Entitic vol]8.3 fLNormal6.4 - 10.8 fLFTMC HemeAutoSSPlatelets (Bld) [#/Vol]334.0 E9/IMfdksb367.0 - 500.0 E9/LFTMC HemeAutoSSRBC (Bld) [#/Vol] 4.5 E12/LNormal4.3 - 5.9 E12/LFTMC HemeAutoSSWBC corrected for nucl RBC Auto (Bld) [#/Vol]8.9 E9/LNormal4.0 - 11.0 E9/LFTMC HemeAutoSSOB/RECREATIONAL COUNSELOR - Office Visiton 12-72-5011XD/RECREATIONAL COUNSELOR - Office VisitChief ComplaintComplains of: heavy bleeding 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, Rukhsanacecily Salomon, ROSE History of Present IllnessSanna [...] stroke 07/2017 PSH as above POB- 2007 [id number] 17week loss subchorionic h csfrqeqfx7250 39weeks bleeding at 5weeks for 2 weeks diet 2000-1937 calories exercise none 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 Review [...] History History of Oral Surgery Tooth Extraction [place] Family History No pertinent family history Family history of cerebrovascular accident (CVA) (V17.1) (Z82.3) Family history of diabetes mellitus (V18.0) (Z83.3) Family history of cerebrovascular accident (CVA) (V17.1) (Z82.3) Family history of cerebrovascular accident (CVA) (V17.1) (Z82.3) Allergies No Known Drug Allergies Recorded By: Susie Salomon; 11/08/2017 4:19:42 PM Current Meds Ciprofloxacin HCl - 500 MG Oral Tablet;Ther apy: [id number] to Recorded Dispense: 0 Days ; #: Sufficient Tablet; Refill: 0; BUBBA = N; Record; Last Updated By: Susie Salomon; 11/08/2017 4:19:42 PM Plavix 75 MG Oral Tablet;Therapy: [id number] to Recorded Dispense: 0 Days ; #: Sufficient Tablet; Refill: 0; BUBBA = N; Record; Last Updated By: Susie Salomon; 11/08/2017 4:19:42 PM Provera 10 MG Oral Tablet;Therapy: [id number] to Recorded Dispense: 0 Days ; #: Sufficient Tablet; Refill: 0; BUBBA = N; Record; Last Updated By: Susie Salomon; 11/08/2017 4:19:42 PM Vitals Vital Signs Recorded: 57Snz8140 04:72TAKoajkevd829Mefktjjcs33Uloqxu1 ft 6 quRmgoaf656 lb BMI Vceebcfuxh32.57BSA Calculated1.9LJC75Zui1976Pdzg Scale6-7 Physical ExamConstitutional: Alert and in no acute distress. Well developed, well nourished. Head and Face: Head and face: Normal. Psychiatric: Alert and oriented x 3. Affect normal to patient baseline. Mood: Appropriate. Diagnoses/Problems Anemia (285.9) (D64.9) Asthma (493.90) (J45.909) Depression with anxiety (300.4) (F41.8) History of Oral Surgery Tooth Extraction [place] [facility] No pertinent family history : Mother [...] GIDeclines STI testing todayWeight gain, offered a odd shoe examiner consult and she declined. Encouraged exercise. Signatures Electronically signed by : RICHARD Ulrich; Nov 12 2017 8:46PM EST (Author)NormalUH TouchworksAntiphospholipid Abs IgG/IgMon 10-33-9715Ztjzgwcvmfknyksk Ab-EcO600 GPLCritically high0-14[facility] Behavioral HospitalComment on above:Result Comment: INTERPRETIVE INFORMATION: High- Specificity Antiphospholipid Antibody,IgG14 GPL or less......Bqxzqrcz67 26 GPL.........Indeterminate Suggest repeat testing in 12 weeks27 GPL or greater. ..PositiveHigh-specificity antiphospholipid IgG and IgM antibodies are directedagainsta mixture of phosphatidylserine, phosphatidic acid, and beta- 2glycoprotein 1antigens. These antibodies are more specific than cardiolipin IgG andIgMantibodies in the diagnosis of antiphospholipid syndrome (APS). Antiphospholipid Ab-IgM6 MPLNormal097 Garcia StreetComment on above:Result Comment: INTERPRETIVE INFORMATION: High-Specificity Antiphospholipid Antibody,IgM14 MPL or less......Ramfdccs64 37 MPL.........Indeterminate Suggest repeat testing in 12 weeks38 MPL or greater. ..PositiveHigh-specificity antiphospholipid IgG and IgM antibodies are directedagainsta mixture of phosphatidylserine, phosphatidic acid, and beta- 2glycoprotein 1antigens. These antibodies are more specific than cardiolipin IgG andIgMantibodies in the diagnosis of antiphospholipid syndrome (APS).Performed by [facility],[address] [place] [address],[place] [address] [email or web address], Zhang Bledsoe MD - Lab. [facility] Miscellaneous test 1on 05-28-2017 Miscellaneous Test 1SEE NOTECommunity HospitalComment on above: Result Comment: Test name [...] Additional information and recommendations for testingmay befound [email or web address] [email or web address].Performed by [facility],[address] [employer] [facility] [place] [address] [email or web address],Zhang Bledsoe MD - Lab. DirectorCardiolipin Antibodies, IgA, IgG, IgMon 30-40-0423Ouodqjrunzw Ab IgA0 APLNormal0-11[facility] Behavioral HospitalComment on above:Result Comment: INTERPRETIVE INFORMATION: Cardiolipin Antibodies, IgA0-11 APL: Ixkwqpzn67-38 APL: In -74 APL: Low to Moderately Hgyzlmqv79 APL or above: High PositivePerformed by [facility],[address] [place] [address] [email or web address] MD - Lab. DirectorCardiolipin Ab IgG 111 GPLCritically high0-14[facility] Behavioral HospitalComment on above:Result Comment: INTERPRETIVE INFORMATION: Anti-Cardiolipin IgG Ab0-14 GPL: Odhzfikb90- 19 GPL: Vofdildzruznb56-82 GPL: Low to Moderately Uwrhltwd07 GPL or above: High PositiveThe persistent presence [...] other criteria phospholipid antibody tests.Cardiolipin Ab IgM10 MPLNormal0-12[facility] HospitalComment on above:Result Comment: INTERPRETIVE INFORMATION: Anti-Cardiolipin IgM0-12 MPL: Rnspxisk23-69 MPL: Ixktjhqstqcho81-04 MPL: Low to Moderately Cpqaawcm70 MPL or above: High PositiveThe persistent presence [...] and/orothercriteria phospholipid antibody tests.Jennifer-Simpson Virus by PCRon 71-06-0543Giuojua Simpson Virus by PCRNot DetectedNoSpalding Rehabilitation HospitalComment on above:Result Comment: NOT DETECTED - A negative result does not rule out thepresence of PCR inhibitors inthe patient specimen or assayspecific nucleic acid in concentrations below the level ofdetection bythe assay.INTERPRETIVE INFORMATION: Jennifer Simpson Virus by PCRTest developed and characteristics determined by [facility]. SeeCompliance Statement A: [email or web address]/CSPerformed by [facility],[address] [facility] [place] [address] [email or web address], Zhang Bledsoe MD - Lab. DirectorEpstein Simpson Virus SourceCSFCommunity HospitalOligoclonal Band Profileon 23-67-1481Ultocrs9919 mg/mLWywvla4950-9075PbycgEating Recovery Center A Behavioral HospitalAlbumin 5.2 ratioNormal0.0-9.0[facility] Behavioral HospitalAlbumin, CSF20 mg/dLNormal 0-35[facility]al HospitalCSF IgG Synthesis Rate<0.0Normal<=8.0[facility]al HospitalCSF Oligoclonal BandsNegativeNormalNegativeEating Recovery Center A Behavioral HospitalCSF Oligoclonal Bands Number0 BandsNormal0-1MMemorial Hospital NorthGlobulin1060 mg/eHQsyxmv203-7284DgnbjEating Recovery Center A Behavioral Hospital Comment on above:Result Comment: REFERENCE INTERVAL: Immunoglobulin GAccess complete set of age- and/or gender-specific reference intervalsforthis test in the [facility] Test Directory (Local.com).IgG Index0.45 ratioNormal 0.28-0.66[facility] Behavioral HospitalImmunoglobulin G CSF2.5 mg/dLNormal0.0-6.0 [facility] Behavioral HospitalINR Coag RelTime (Bld)0.12 {INR}Normal0.09-0.25 [facility]al HospitalInterpretationSee NoteNoSpalding Rehabilitation HospitalComment on above:Result Comment: Isoelectric focusing/immunofixation reveals no oligoclonal bands ineitherthe CSF orthe serum. This is considered to be a negative result foroligoclonal bands. Approximately 5 percentof patients with clinicallydefinitive multiple sclerosis will have a negative result.Performed by [facility],[address] [facility] [place] [address] [email or web address], Zhang Bledsoe MD - Lab.DirectorMyelin Basic Protein, CSFon 59-49-3418Cfttdp Basic Protein1.82 ng/mLNormal0.00-5.50[facility] Behavioral HospitalComment on above:Result Comment: INTERPRETIVE INFORMATION: Myelin Basic ProteinTest developed and characteristics determined by [facility]. SeeCompliance Statement D: Local.com/CSPerformed by [facility],[address] [facility] [place] [address] [email or web address], Zhang Bledsoe MD - Lab. [facility] Miscellaneous test 1on 23-57-4423Wpoexzq Prompt 97642VehnbjRabdlCommunity HospitalComment on above:Result Comment: Corrected result; [place] [address] on 05/25/2017 at 13:14 by V/AUT RICyntellect Miscellaneous test 1on 49-19-7983Otwkwdk Sbbovt78416SdhpbwMoypzCommunity HospitalComment on above:Result Comment: DS DNACSF Cell Counton 05-25-2017 CSF no diffsee [facility] Community HospitalComment on above:Result Comment: Differential not performed -Total Nucleated cellsCSF AppearanceClear NormalEating Recovery Center A Behavioral HospitalCSF ColorColorlessCommunity HospitalCSF Tube NumberTube 4Community HospitalFluid Clot Evaluationsee belowCommunity HospitalComment on above:Result Comment: No Clots SeenTotal Nucleated Cells0 K/uLNormal0-8[facility] Behavioral HospitalTotal Red Blood Cells0 K/uLCommunity HospitalCSF Glucose on 97-86-3993PHZ Nzigpzy71 mg/mXTmvzdg34-89AebzeEating Recovery Center A Behavioral HospitalCSF Proteinon 09-95-6040BGI Dwrmptq00 mg/sYIplzis21-81QdmnxEating Recovery Center A Behavioral Hospital Creatine Kinaseon 46-68-4600Chfbolwd kinase (CK)71 U/LNormal0-170[facility] Behavioral HospitalCulture, CSFon 61-64-3673Bktubqd, CSFORDER#: [id number] ORDERED BY: VERNA MONGE: CSF (Spinal Fluid) CSF COLLECTED: 05/25/17 13:25ANTIBIOTICS AT AMARILYS.: RECEIVED : 05/25/17 13:25Gram Stain Direct FINAL 05/25/17 15:30 No WBC's, No organisms seenCulture, CSF FINAL 05/28/17 09:04 No growth at 72 hours Community HospitalFL LUMBAR PUNCTURE DIAGon 96-59-0297ZI LUMBAR PUNCTURE DIAGFL LUMBAR PUNCTURE DIAG : [...] LUMBAR PUNCTURE.Interpreted by:NIKITA Mezaigned by:Humera Covarrubias MD05/25/17inal resultNormalEating Recovery Center A Behavioral Hospital Homocysteineon 25-57-0610Alqtwpcenwye1.1 umol/LNormal0.0-15.0[facility] Behavioral HospitalPartial Thromboplastin Timeon 52-00-9930kZKC91.7 dGyysea17.6-35.4 [facility] Behavioral HospitalComment on above:Result Comment: Heparin Therapeutic Range: 38.8 - 54.6 seconds.Prothrombin Timeon 39-77-9864GVC Coag RelTime (PPP)1.0 {INR}Community HospitalComment on above:Result [...] secProthrombin time (PT) Coag time (PPP) 10.7 sNormal8.1-13.7[facility] Vital Signs Date TimeVital SignValuePerforming LtobbxcjyXzicapsi38-52-3080 09:26-0400Body mass index (BMI) [Ratio]33.98 kg/c1Psedb zLense DO Work Phone: [facility] HospitalUbtxybgebi38-19-6054 09:26-0400Body bnnrem96.48 kgCorey Montez DO Work Phone: [facility] HospitalRwlhooedau74-93-3724 09:26-0400Diastolic blood cxukqndj25 mm[Hg][employer] Work Phone: [facility] HospitalOylacjealw23-99-7799 09:26-0400Systolic blood xcrygkiq865 mm[Hg][employer] Work Phone: [facility] HospitalNaosugryaq25-12-9901 13:44-0400Body iwwopj276.6 cmApreet Callahan MD MPH Work Phone: [phone]10-20-2025 13:44-0400Body mass index (BMI) [Ratio]33.73 kg/o8XckfhSam Callahan MD MPH Work Phone: [phone] [place], [place] 5922610-20-2025 13:44-0400Body casaxl73.8 kgSam Callahan MD MPH Work Phone: [facility]10-20-2025 13:44-0400Diastolic blood venpboov31 mm[Hg]Sam Callahan MD MPH Work Phone: [facility]10-20-2025 13:44-0400Heart rate 79 /minSam Callahan MD MPH Work Phone: 1(567)585-[address] [place], [place] [address]4110-20-2025 13:44-0400 Respiratory rate18 /minSam Callahan MD MPH Work Phone: [facility]10-20-2025 13:44-0400Systolic blood zacniqyu336 mm[Hg]Sam Callahan MD MPH Work Phone: [facility]10-13-2025 10:45-0400Body mass index (BMI) [Ratio]34.12 kg/t5Ctrpy Montez DO Work Phone: [phone])798-[address] [place], [place] [address]Rkltqvvxbh05-15-2275 10:45-0400Body dcqpyp42.89 kgCorey Montez DO Work Phone: [phone] [place] [address]-13-2025 10:45-0400Diastolic blood asqgcvqp51 mm[Hg]Wilton Montez DO Work Phone: [phone] [place], [place] [address]Vbpelqvtdf53-67-1530 10:45-0400Systolic blood hetkgwik673 mm[Hg]Wilton Montez DO Work Phone: [phone] [place], [place] [address]Jjvvwgotfv21-90-5528 09:30-0400Body mass index (BMI) [Ratio]34.14 kg/m8Kuxxn Montez DO Work Phone: [phone] [place], [place] [address]Kxfdytmnyo01-53-2185 09:30-0400Body xhudeq37.94 kgCorey Montez DO Work Phone: 1(574)611-[address] [place], [place] [address]Vuthijbyzz84-70-4500 09:30-0400Diastolic blood ijjsknzb89 mm[Hg]Wilton Montez DO Work Phone: [phone])098-[address] [place], [place] [address]Lozjqfosyr90-90-1266 09:30-0400Systolic blood uxfhsied454 mm[Hg]Wilton Montez DO Work Phone: [phone])124-[address] [place] [address]-08-2025 15:14-0400Body mass index (BMI) [Ratio]33.73 kg/g7Qudyk Montez DO Work Phone: [place] [address]Zdxezwsiqa23-53-4636 15:14-0400Body otawqw24.8 kg Wilton Montez DO Work Phone: [facility] HospitalPuryrmnyap56-29-2437 15:14-0400Diastolic blood xsdigqdt99 mm[Hg]Wilton Herrmann DO Work Phone: noEllett [facility] HospitalOmjdhqbubi39-39-7147 15:14-0400Systolic blood evrrocrp629 mm[Hg]Wilton Herrmann DO Work Phone: noEllett Memorial HospitalWfwcetnnlq00-06-7965 14:22-0400Body mass index (BMI) [Ratio]33.89 kg/u6LmdjndpoMukul Noyola MD Work Phone: [phone]09-04-2025 14:22-0400Body nbnitu89.25 kgMukul Noyola MD Work Phone: [phone] [place], [place] [address]2009-04-2025 14:22-0400Diastolic blood jbqalbgj92 mm[Hg]Mukul Noyola MD Work Phone: [phone] [place], [place] [address]2009-04-2025 14:22-0400Systolic blood uipkvvjy607 mm[Hg]Mukul Noyola MD Work Phone: [phone])[address] [place], [place] [address]2008-26-2025 11:34-0400Body kptjad731.7 cmKatherine Negrete APRN.[employer]AND [employer] MACHINE OPERATOR Work Phone: [facility]08-26-2025 11:34-0400Body mass index (BMI) [Ratio]33.57 kg/s1QjtjiKatherine Negrete APRN.[employer] MACHINE OPERATOR Work Phone: [facility]08-26-2025 11:34-0400Body temperature 97.59 [degF]Katherine Negrete HOGSHEAD WEIGHER.[employer] BUTTING MACHINE OPERATOR Work Phone: [facility]08-26-2025 11:34-0400Body wztfyu36.4 kgKatherine Negrete APRN.[employer]AND BUTTING MACHINE OPERATOR Work Phone: [facility]08-26-2025 11:34-0400Diastolic blood ldvouboh53 mm[Hg]Katherine Negrete HOGSHEAD WEIGHER.RAND BUTTING MACHINE OPERATOR Work Phone: [facility]08-26-2025 11:34-0400Heart rate80 /min Katherine Negrete APRN.[employer]AND BUTTING MACHINE OPERATOR Work Phone: [facility]08-26-2025 11:34-0400Respiratory rate 16 /minKatherine Negrete APRN.RAND BUTTING MACHINE OPERATOR Work Phone: [facility]08-26-2025 11:34-2643BpU2% (BldA) [Mass fraction]98 %Katherine Negrete APRN.RAND BUTTING MACHINE OPERATOR Work Phone: [facility]08-26-2025 11:34-0400Systolic blood pedmpsrp981 mm[Hg]Katherine Negrete HOGSHEAD WEIGHER.RAND BUTTING MACHINE OPERATOR Work Phone: [facility]08-14-2025 09:28-0400Body mass index (BMI) [Ratio]33.41 kg/a0Gaewd Montez DO Work Phone: [facility] HospitalCjusgbecgj05-54-1265 09:28-0400Body .89 kgCorey Montez DO Work Phone: [place] [address]Omwzrldcrs65-02-8765 09:28-0400Diastolic blood jznypboq02 mm[Hg]Wilton Montez DO Work Phone: [place] [address]Tooxaddaaq10-97-9399 09:28-0400Systolic blood nzpqfmoz934 mm[Hg]Wilton Montez DO Work Phone: [facility] HospitalIwywtqislf37-37-1169 10:53-0400Body mass index (BMI) [Ratio]33.57 kg/p6Ixywd Montez DO Work Phone: [facility] HospitalApkoyfubls88-93-6776 10:53-0400Body smcluh09.35 kgCorey Montez DO Work Phone: [facility] HospitalDckyeawitd19-88-9420 10:53-0400Diastolic blood jkeqssry73 mm[Hg]Wilton Montez DO Work Phone: [facility] HospitalIyjnnjupik51-06-9142 10:53-0400Systolic blood mm[Hg]Wilton Montez DO Work Phone: [place] [address]Rstvupfxjd45-40-4572 13:07-0400Body mass index (BMI) [Ratio]33.73 kg/p8DzvieyLorena Enciso RN Work Phone: [phone])836-[address] [place], [place] 4567907-23-2025 13:07-0400Body hxydbs71.8 kgLorena Enciso RN Work Phone: 1(268)549-[address] [place], [place] [address]67907-03-2025 09:32-0400Body mass index (BMI) [Ratio]33.81 kg/d8Jitcu Montez DO Work Phone: [facility] HospitalThjzffahrx38-19-6540 09:32-0400Body ayrsrk33.03 kgCorey Montez DO Work Phone: 1(059)244-[address] [place], [place] [address]Cycuoaowhg50-95-9405 09:32-0400Diastolic blood vsmmzjaj29 mm[Hg]Wilton Montez DO Work Phone: [facility] HospitalIszrdjkvts23-24-6787 09:32-0400Systolic blood dhlymyrd747 mm[Hg]Wilton Montez DO Work Phone: 1(505)311-[address] [place], [place] [address]Hczobqoslv99-97-6706 14:23-0400Body mass index (BMI) [Ratio]33.46 kg/p9UdcdfKatherine Negrete APRN.[employer]AND BUTTING MACHINE OPERATOR Work Phone: [facility]07-01-2025 14:23-0400Body temperature 97 [degF]Katherine Negrete APRN.[employer]AND BUTTING MACHINE OPERATOR Work Phone: [facility]07-01-2025 14:23-0400Body .1 kgKatherine Negrete APRN.RAND BUTTING MACHINE OPERATOR Work Phone: [facility]07-01-2025 14:23-0400Diastolic blood cyfhnejb39 mm[Hg]Katherine Negrete APRN.RAND BUTTING MACHINE OPERATOR Work Phone: [facility]07-01-2025 14:23-0400Heart rate82 /min Katherine Negrete APRN.[employer]AND BUTTING MACHINE OPERATOR Work Phone: [facility]07-01-2025 14:23-0400Respiratory rate 16 /minKatherine Negrete APRN.[employer]AND BUTTING MACHINE OPERATOR Work Phone: [facility]07-01-2025 14:23-6453KaL0% (BldA) [Mass fraction]100 %Katherine Negrete APRN.[employer]AND BUTTING MACHINE OPERATOR Work Phone: [facility]07-01-2025 14:23-0400Systolic blood uooyibbk196 mm[Hg]Katherine Negrete APRN.[employer]AND BUTTING MACHINE OPERATOR Work Phone: [facility]06-05-2025 14:10-0400Body mass index (BMI) [Ratio]33.89 kg/m2[facility]06-05-2025 14:10-0400Body vkyhkw42.25 kgRay County [facility] Hospital06-05-2025 14:10-0400Diastolic blood ycpsbekq34 mm[Hg][facility]06-05-2025 14:10-0400Systolic blood yhfnqxks282 mm[Hg][facility]03-27-2025 12:07-0400Body mass index (BMI) [Ratio]34.44 kg/k3Smrvo Montez DO Work Phone: [facility] HospitalJpehcllnpd07-11-3736 12:07-0400Body .8 kg Wilton Montez DO Work Phone: [facility] HospitalRjkxiczppt58-21-6186 12:07-0400Diastolic blood timveogx56 mm[Hg]Wilton Montez DO Work Phone: [facility] HospitalIrsiwxxjta92-66-1138 12:07-0400Systolic blood zwtkhazs812 mm[Hg]Wilton Montez DO Work Phone: [facility] HospitalCmyeanttvc59-40-7230 08:27-0500Blood Pressure LocationScott KAPLE [phone]-LdgshGlenbeigh Hospital03-03-2025 08:27-0500Diastolic blood agfjccns50 mm[Hg]Penelope KAPLE 609-7932Sthntc-QkcuxGlenbeigh Hospital03-03-2025 08:27-0500Heart rate77 /minScott KAPLE 334-3243Wutcfu-IhrcpGlenbeigh Hospital03-03-2025 08:27-5781WoT8% (BldA) [Mass fraction]99 %Penelope CASAS 215-9196Nyeijd-PrlbmGlenbeigh Hospital03-03-2025 08:27-0500Systolic blood xzsfdikh331 mm[Hg]Penelope CASAS 484-2115Ulaxgc-UdfrkGlenbeigh Hospital02-24-2025 15:21-0500Body mass index (BMI) [Ratio]34.93 kg/l1Vucmr Montez DO Work Phone: [facility] HospitalBezpbqhxwt89-86-2062 15:21-0500Body bkeeht18.16 kgCorey Montez DO Work Phone: [facility] HospitalOhfimdqjhs13-58-5461 15:21-0500Diastolic blood qcfetxus66 mm[Hg]Wilton Montez DO Work Phone: [facility] HospitalSwlyuhvgvy67-16-8323 15:21-0500Systolic blood vzorfuab631 mm[Hg]Wilton Montez DO Work Phone: [facility] HospitalBkhinsqhna43-23-2266 16:14-0500Blood Pressure LocationJESSICA BACA 611-9207Zrvviz-AdbxfMemorial [facility] 06-19-2024 16:14-0500Diastolic blood ofgvzsgr32 mm[Hg]JESSICA BACA 315-4550Qyjfvw-RmupwMemorial Health System [facility] 06-19-2024 16:14-0500Heart rate74 /minBARRONCLYN KEVEN [phone]-WoaenMemorial Health System [facility] 06-19-2024 16:14-9153SkA0% (BldA) [Mass fraction]100 %JESSICA BACA 367-1531Hzqbio-XocheMemorial Health System [facility] 06-19-2024 16:14-0500Systolic blood vdvntcjo629 mm[Hg]JESSICA BACA 994-3881Xawsqf-PfjurOhiohealth [facility] 06-09-2024 13:55-0500Blood Pressure LocationScott KAPLE 293-3242Ubuegi-FudkcGlenbeigh Hospital02-10-2025 13:55-0500Diastolic blood pnlbaete62 mm[Hg]Penelope KAPLE [phone]-InyhfGlenbeigh Hospital02-10-2025 13:55-0500Heart rate78 /minScott KAPLE 050-3932Ogfbzv-IutdaGlenbeigh Hospital02-10-2025 13:55-1475WzJ7% (BldA) [Mass fraction]99 %Penelope KAPLE 968-8029Cqpale-VjkdnGlenbeigh Hospital02-10-2025 13:55-0500Systolic blood uksxvnbw933 mm[Hg]Penelope STYLESLE 825-0343Scemkr-NtwozGlenbeigh Hospital02-03-2025 11:43-0500Body mass index (BMI) [Ratio]34.51 kg/s5Uhhmp Montez DO Work Phone: [facility] HospitalOpxdxaacjb89-93-5513 11:43-0500Body crktit17.98 kgCorey Montez DO Work Phone: [facility] HospitalEjwnbvoxzb76-91-3338 11:43-0500Diastolic blood vfnsemdb49 mm[Hg]Wilton Montez DO Work Phone: [facility] HospitalIrueqpybbl34-94-7786 11:43-0500Systolic blood jmvgyszq382 mm[Hg]Wilton Montez DO Work Phone: [facility] HospitalLnqvrsabrj45-00-6087 13:07-0500Body lyramq093.7 cmVramos Calix MD Work Phone: [facility]01-29-2025 13:07-0500Body mass index (BMI) [Ratio]35.02 kg/i4LxilnKristofer Calix MD Work Phone: [facility]01-29-2025 13:07-0500Body temperature 97.59 [degF]Kristofer Calix MD Work Phone: [facility]01-29-2025 13:07-0500Body sxkevi32.5 kgKristofer Calix MD Work Phone: [facility]01-29-2025 13:07-0500Diastolic blood xofjsuuj91 mm[Hg]Kristofer Calix MD Work Phone: [facility]01-29-2025 13:07-0500Heart rate72 /min Kristofer Calix MD Work Phone: [facility]01-29-2025 13:07-0500Respiratory rate 16 /minKristofer Calix MD Work Phone: [facility]01-29-2025 13:07-4028DjY4% (BldA) [Mass fraction]99 %Kristofer Calix MD Work Phone: [facility]01-29-2025 13:07-0500Systolic blood lajuuabi081 mm[Hg]Kristofer Calix MD Work Phone: [facility]01-07-2025 14:40-0500Body mass index (BMI) [Ratio]35.41 kg/d2Tpkae Montez DO Work Phone: [facility] HospitalXkwyvpgryd37-94-2043 14:40-0500Body cffpyo66.52 kgCorey Montez DO Work Phone: [facility] HospitalYikzsxardq53-89-7849 14:40-0500Diastolic blood enjalkfu88 mm[Hg]Wilton Montez DO Work Phone: [facility] HospitalJcrjbhrhvt56-80-8676 14:40-0500Systolic blood mm[Hg]Wilton Montez DO Work Phone: [facility] HospitalRiexzotiuk86-50-5253 10:57-0500Body mass index (BMI) [Ratio]35.85 kg/m2[facility]12-06-2024 10:57-0500Body fizvlq136.75 kgNoLiberty Hospital10-08-2024 13:29-0400Blood Pressure LocationScott KAPLE 022-7836Wireif-Fxvya[address] [place], [place] 2845010-08-2024 13:29-0400Body tfcpksqnozs01.06 [degF]Penelope CASAS 603-2032Qoavvn-Gcumq[address] [place], [place] 2845010-08-2024 13:29-0400Diastolic blood gisqqafw05 mm[Hg]Penelope STYLESLE 193-4542Hptbit-Mxokr[address] [place], [place] 2845010-08-2024 13:29-0400Heart rate76 /minScott KAPBEN 006-7857Hzfwzz-Nkirr[address] [place], [place] 2845010-08-2024 13:29-0400Respiratory rate16 /minScott KAPBEN 793-7702Kgmnca-Altus[address] [place], [place] 2845010-08-2024 13:29-7850ElG2% (BldA) [Mass fraction]99 %Penelope CASAS 421-1951Cvrhmt-Vdmnq[address] [place], [place] 2845010-08-2024 13:29-0400Systolic blood mm[Hg]Penelope CASAS 553-3684Qqceuq-Zoksv[address] [place], [place] 2845010-05-2024 14:39-0400Blood Pressure LocationPreeti Gudimella 538-9020Yhrfpd-Wxcrm[address] [place], [place] 9193210-05-2024 14:39-0400Body xpyyoccblnq76.06 [degF]Anni Gudimella 276-5619Zrohll-Lbbko[address] [place], [place] 9193210-05-2024 14:39-0400Diastolic blood sidzqfoq65 mm[Hg]Anni Gudimella 732-6284Qtbfyw-AndkmOhio [facility] Hospital10-05-2024 14:39-0400Heart rate98 /minPreeti Gudimella 302-0717Zkjwfk-Toakx[address] [place], [place] 9193210-05-2024 14:39-3820CpZ5% (BldA) [Mass fraction]99 %Anni Gudimella [phone]-YqgtyOhiohealth [facility]ide [facility] Nntt61-05-7817 14:39-0400Systolic blood bavlkibn753 mm[Hg]Anni Gudimella 655-7046Ejtdac-GpqoxOhiohealth Riverside [facility] Uxsw16-54-7365 13:45-0400Body pdbtyk029.7 cmVramos Calix MD Work Phone: [facility]09-04-2024 13:45-0400Body mass index (BMI) [Ratio]36.52 kg/t8SmkdhKristofer Calix MD Work Phone: [facility]09-04-2024 13:45-0400Body temperature 97.11 [degF]Kristofer Calix MD Work Phone: [facility]09-04-2024 13:45-0400Body dkrmah468.7 kgKristofer Calix MD Work Phone: [facility]09-04-2024 13:45-0400Diastolic blood rclekuvu61 mm[Hg]Kristofer Calix MD Work Phone: [facility]09-04-2024 13:45-0400Heart rate91 /min Kristofer Calix MD Work Phone: [facility]09-04-2024 13:45-0400Respiratory rate 16 /minKristofer Calix MD Work Phone: [facility]09-04-2024 13:45-2079ZpX4% (BldA) [Mass fraction]100 %Kristofer Calix MD Work Phone: [facility]09-04-2024 13:45-0400Systolic blood swxoupiq757 mm[Hg]Kristofer Calix MD Work Phone: [facility]08-01-2024 13:40-0400Body temperature 97.7 [degF]Chair [place] Work Phone: [facility]08-01-2024 13:40-0400Diastolic blood omzhtgsp98 mm[Hg]Chair Stew Work Phone: [facility]08-01-2024 13:40-0400Heart rate75 /min Chair [place] Work Phone: [facility]08-01-2024 13:40-0400Respiratory rate 16 /minChair Alpharetta Work Phone: [facility]08-01-2024 13:40-8621ElA3% (BldA) [Mass fraction]99 %Chair [place] Work Phone: [facility]08-01-2024 13:40-0400Systolic blood ootawvvn247 mm[Hg]Chair [place] Work Phone: [facility]07-25-2024 14:00-0400Body temperature 98.2 [degF]Chair [place] Work Phone: [facility]07-25-2024 14:00-0400Diastolic blood owpkntfy01 mm[Hg]Chair Stew Work Phone: [facility]07-25-2024 14:00-0400Heart rate79 /min Chair [place] Work Phone: [facility]07-25-2024 14:00-0400Respiratory rate 16 /minChair Alpharetta Work Phone: [facility]07-25-2024 14:00-7814ScP5% (BldA) [Mass fraction]99 %Chair [place] Work Phone: [facility]07-25-2024 14:00-0400Systolic blood xzcxaouz620 mm[Hg]Chair Stew Work Phone: [facility]07-18-2024 14:08-0400Diastolic blood mxvuznla59 mm[Hg]Chair Stew Work Phone: [facility]07-18-2024 14:08-0400Heart rate85 /min Chair Stew Work Phone: [facility]07-18-2024 14:08-0400Respiratory rate 18 /minChair Stew Work Phone: [facility]07-18-2024 14:08-1448RdA2% (BldA) [Mass fraction]96 %Chair Stew Work Phone: [facility]07-18-2024 14:08-0400Systolic blood earenruq671 mm[Hg]Chair Stew Work Phone: [facility]07-12-2024 14:44-0400Blood Pressure LocationMonica Saba 780-3984Jcoeet-Cnorl[address] [place], [place] 2845007-12-2024 14:44-0400Body wupbksptvxb30.34 [degF]Monica Saba 027-0368Wywoxi-Dyvsu[address] [place], [place] 2845007-12-2024 14:44-0400Diastolic blood kweijxzp59 mm[Hg]Monica Saba 218-6756Cfgvpt-Ojttx[address] [place], [place] 2845007-12-2024 14:44-0400Heart rate85 /Jennifer Saba 885-2519Nrhbnl-Bbmig[address] [place], [place] 2845007-12-2024 14:44-0400Respiratory rate16 /Jennifer Saba 365-0503Qqjemr-Mheea[address] [place], [place] 2845007-12-2024 14:44-8941IdU8% (BldA) [Mass fraction]99 %Monica Saba 829-3625Voiugp-Bedyl[address] [place], [place] 2845007-12-2024 14:44-0400Systolic blood ypdnfstg695 mm[Hg]Monica Saba 089-3945Oiladx-Mrubu[address] [place], [place] 2845006-25-2024 16:48-0400Blood Pressure LocationLourdes Garber 095-8339Owbzza-Kuehk[address] [place], [place] 2845006-25-2024 16:48-0400Body fmgigygwugb97.52 [degF]Lourdes Garber 477-4881Ozvrxm-Tlqnu[address] [place], [place] 2845006-25-2024 16:48-0400Diastolic blood mkvilcrz49 mm[Hg]Lourdes Garber 272-1893Gioplo-Brsyn[address] [place], [place] 2845006-25-2024 16:48-0400Heart rate86 /minLourdes Garber 284-3895Widfda-Wytqk[address] [place], [place] 2845006-25-2024 16:48-2403RtF7% (BldA) [Mass fraction]99 %Lourdes Garber 138-5180Iqzizm-Tbokf[address] [place], [place] 2845006-25-2024 16:48-0400Systolic blood uvczkbro232 mm[Hg]Lourdes Garber 408-4401Syvpis-Jqpqp[address] [place], [place] 2845005-31-2024 21:17-0400Body ydamqdzpxrr59.06 [degF]Benny Uribe [address]05-31-2024 21:17-0400 Diastolic blood wghnhgoe57 mm[Hg]Benny Uribe [address] [place], [place] 1030205-31-2024 21:17-0400Heart rate67 /minBenny Uribe [address] [place], [place] 1030205-31-2024 21:17-0400Mean blood nwuihojh27 mm[Hg]Benny Uribe [address] [place], [place] 1030205-31-2024 21:17-9559OsN0% (BldA) [Mass fraction]95 %Benny Uribe [address] [place], [place] 1030205-31-2024 21:17-0400 Systolic blood ejnyzmwz746 mm[Hg]Benny Uribe [address] [place], [place] 1862805-31-2024 20:00-0400 Diastolic blood imdlrzam66 mm[Hg]Benny Uribe [address] [place], [place] 1862805-31-2024 20:00-0400Heart rate78 /minBenny Uribe [address] [place], [place] 1862805-31-2024 20:00-0400Mean blood crldapgn88 mm[Hg]Benny Uribe [address] [place], [place] 1862805-31-2024 20:00-0400 Respiratory rate20 /minBenny Uribe [address] [place], [place] 1862805-31-2024 20:00-0400 Systolic blood mm[Hg]Benny Uribe [address] [place], [place] 1862805-31-2024 19:30-0400 Diastolic blood eznahgqi75 mm[Hg]Benny Uribe [address] [place], [place] 1862805-31-2024 19:30-0400Heart rate80 /minBenny Uribe [address] [place], [place] 1862805-31-2024 19:30-0400Mean blood hnedpwvq303 mm[Hg]Benny Uribe [address] [place], [place] 1862805-31-2024 19:30-0400 Respiratory rate18 /minBenny Uribe [address] [place], [place] 1862805-31-2024 19:30-1530NxS1% (BldA) [Mass fraction]100 %Benny Uribe [address] [place], [place] 1862805-31-2024 19:30-0400 Systolic blood ijmcwgax313 mm[Hg]Benny Uribe [address] [place], [place] 1862805-31-2024 19:00-0400 Respiratory rate17 /minBenny Uribe [address] [place], [place] 1862805-31-2024 18:32-0400Body bxpakgorlwn41.42 [degF]Benny Uribe [facility]05-31-2024 18:32-0400Heart rate69 /minAntonderik Rony [facility]05-31-2024 17:46-0400 Diastolic blood xomjblhr17 mm[Hg]JANET DUNHAM 660-2716Irxncd-Iqnxy[address] [place] [address] Convenient Glvo15-15-2245 17:46-0400Mean blood zbticgft275 mm[Hg]LEWISBURG DUNHAM 587-3292Hiqrhi-Ptgxa[address] [place] [address] Convenient Laez68-33-5950 17:46-0400Systolic blood icxihrqi598 mm[Hg][facility] 866-1217Wospsx-Eljwx[address] [place] [address] Convenient Nzug09-01-5650 17:40-0400Blood Pressure LocationFRANCJONEL DUNHAM 500-8289Zizcxu-Gyqly[address] [place] [address] Convenient Xyms27-68-0343 17:40-0400Body jfmjwhhgyiy13.88 [degF][facility] 306-5429Iotioz-Nxrjh[address] [place] [address] Convenient Ootv26-04-9499 17:40-0400Diastolic blood peqfvbll60 mm[Hg][facility] 288-4746Izeemd-Dkhsj[address] [place] [address] Convenient Qrez62-95-3260 17:40-0400Heart rate79 /minFRPRITESH DUNHAM 667-0043Crixea-Qygjw[address] [place] [address] Convenient Yqsh39-40-6569 17:40-6605OeB4% (BldA) [Mass fraction]97 %LEWISBURG DUNHAM 743-7432Kjjnpu-Xeyqe[address] [place] [address] Convenient Hgxw62-08-2183 17:40-0400Systolic blood mm[Hg]JANET DUNHAM 258-1189Awmlwk-Uhkcn[address] [place] [address] Convenient Bzwg97-05-8392 11:42-0400Blood Pressure LocationScott KAPLE 041-6201Bnksmo-IxgkmG[facility]04-05-2024 11:42-0400Body ifyukwvvvoc95.06 [degF]Penelope CASAS 756-3412Gbnqhm-OnxsbGlenbeigh Hospital04-05-2024 11:42-0400Diastolic blood nnlmuhyu91 mm[Hg]Penelope CASAS 649-1150Hurpnd-WscygGlenbeigh Hospital04-05-2024 11:42-0400Heart rate72 /minScott KAPLE 017-2325Puqcor-KshkmGlenbeigh Hospital04-05-2024 11:42-0400Respiratory rate16 /minScott KAPLE 129-3320Qzmikq-WtzxfGlenbeigh Hospital04-05-2024 11:42-3045DkL8% (BldA) [Mass fraction]99 %Penelope CASAS 901-9843Msqime-XdineGlenbeigh Hospital04-05-2024 11:42-0400Systolic blood hbdycchg237 mm[Hg]Penelope CASAS 629-0411Rcieym-NiojwGlenbeigh Hospital02-16-2024 14:05-0500Body vcelhk879.7 Jerry Calix MD Work Phone: [facility]02-16-2024 14:05-0500Body temperature 97.39 [degF]Kristofer Calix MD Work Phone: [facility]02-16-2024 14:05-0500Body pfliam883.1 kgKristofer Calix MD Work Phone: [place] [address]-16-2024 14:05-0500Diastolic blood yhxdjnbo52 mm[Hg]Kristofer Calix MD Work Phone: [facility]02-16-2024 14:05-0500Heart rate87 /min Kristofer Calix MD Work Phone: [place] [address]-16-2024 14:05-0500Respiratory rate 16 /minKristofer Calix MD Work Phone: [facility]02-16-2024 14:05-4330AmE4% (BldA) [Mass fraction]95 %Kristofer Calix MD Work Phone: [facility]02-16-2024 14:05-0500Systolic blood mm[Hg]Kristofer Calix MD Work Phone: [facility]01-26-2024 11:11-0500Blood Pressure LocationScott KAPLE [address] [place], [place] 2984201-26-2024 11:11-0500Body dxuvnzifcjd73.7 [degF]Penelope KAPLE [address] [place], [place] 2984201-26-2024 11:11-0500Diastolic blood barzylid33 mm[Hg]Penelope KAPLE 915-6982Dfyvou-Vkkvz[address]01-26-2024 11:11-0500Heart rate76 /minScott KAPLE 497-7140Wtvcwo-Vborf[address] [place], [place] 2845001-26-2024 11:11-0500Respiratory rate18 /minScott KAPLE [address] [place], [place] 2984201-26-2024 11:11-8444RjT2% (BldA) [Mass fraction]98 %Penelope KAPLE [address] [place], [place] 2984201-26-2024 11:11-0500Systolic blood mm[Hg]Penelope KAPLE 606-7671Gbhnul-Zrpbs[address]10-19-2023 09:41-0400Blood Pressure LocationScott KAPLE 542-3225Cagzbn-Fsazd[address] [place], [place] 2845010-19-2023 09:41-0400Body lvryrfbvgru43.42 [degF]Penelope KAPLE 860-9952Xbeski-Qzanp[address] [place], [place] 2845010-19-2023 09:41-0400Diastolic blood aygxpnus30 mm[Hg]Penelope PRAVEEN 899-9765Vleffr-Zzmlu[address] [place], [place] 2845010-19-2023 09:41-0400Heart rate80 /minScott KAPLE 685-2987Vggjbr-Iotbf[address] [place], [place] 2845010-19-2023 09:41-0400Respiratory rate18 /minScott KAPLE 642-1139Kzaygh-Oszbb[address] [place], [place] 2845010-19-2023 09:41-0392JvO7% (BldA) [Mass fraction]98 %Penelope STEPHANIBEN 981-5681Tzxddi-Xeclc[address]10-19-2023 09:41-0400Systolic blood bseuosyd991 mm[Hg]Penelope PRAVEEN 743-9380Kgypod-Wlwna[address]06-23-2023 09:44-0400Blood Pressure LocationScott STEPHANILE [address] [place], [place] 2984206-23-2023 09:44-0400Body .24 [degF]Penelope PRAVEEN [address] [place], [place] 2984206-23-2023 09:44-0400Diastolic blood msrucrdi86 mm[Hg]Penelope CASAS 038-5974Qzhtlq-Vxorl[address]06-23-2023 09:44-0400Heart rate88 /minScott STEPHANILE 642-2911Fibbxr-Suuhs[address] [place], [place] 2845006-23-2023 09:44-0400Respiratory rate18 /minScott KAPLE 246-4423Cwllkk-Fzrry[address] [place], [place] 2845006-23-2023 09:44-8357EzX0% (BldA) [Mass fraction]98 %Penelope CASAS 547-3619Rtugyk-Qwkeg[address] [place], [place] 2845006-23-2023 09:44-0400Systolic blood qywbyzpf405 mm[Hg]Penelope CASAS 349-9253Dzwqks-UnlzpGlenbeigh Hospital03-30-2023 13:18-0400Body ughtdn962.7 cmVramos Calix MD Work Phone: [facility]03-30-2023 13:18-0400Body temperature 97.5 [degF]Kristofer Calix MD Work Phone: [facility]03-30-2023 13:18-0400Body .78 kgKristofer Calix MD Work Phone: [facility]03-30-2023 13:18-0400Diastolic blood ywpmzfbo39 mm[Hg]Kristofer Calix MD Work Phone: [facility]03-30-2023 13:18-0400Heart rate76 /min Kristofer Calix MD Work Phone: [facility]03-30-2023 13:18-0400Respiratory rate 16 /minKristofer Calix MD Work Phone: [facility]03-30-2023 13:18-8164RcU0% (BldA) [Mass fraction]97 %Kristofer Calix MD Work Phone: [facility]03-30-2023 13:18-0400Systolic blood mm[Hg]Kristofer Calix MD Work Phone: [facility]12-22-2022 13:45-0500Body temperature 98.71 [degF]Chair Stew Work Phone: [facility]12-22-2022 13:45-0500Diastolic blood mm[Hg]Chair Stew Work Phone: [facility]12-22-2022 13:45-0500Heart rate85 /min Chair Stew Work Phone: [place] [address]-22-2022 13:45-9249VpH0% (BldA) [Mass fraction]97 %Chair Stew Work Phone: [facility]12-22-2022 13:45-0500Systolic blood vsaoqvdb790 mm[Hg]Chair [place] Work Phone: [facility]12-07-2022 16:27-0500Diastolic blood iubfftkb09 mm[Hg]Chair [place] Work Phone: [phone] [address]-07-2022 16:27-0500Heart rate84 /min Chair Stew Work Phone: [place] [address]-07-2022 16:27-0500Respiratory rate 18 /minChair Stew Work Phone: [place] [address]-07-2022 16:27-4730BwP2% (BldA) [Mass fraction]96 %Chair Stew Work Phone: [facility]12-07-2022 16:27-0500Systolic blood mm[Hg]Chair Stew Work Phone: [facility]11-28-2022 14:20-0500Body duwhtj824.7 cmVramos Calix MD Work Phone: [facility]11-28-2022 14:20-0500Body temperature 97.39 [degF]Kristofer Calix MD Work Phone: [place] [address]-28-2022 14:20-0500Body .23 kgKristofer Calix MD Work Phone: [place] [address]-28-2022 14:20-0500Diastolic blood lkpafgyu72 mm[Hg]Kristofer Calix MD Work Phone: [place] [address]-28-2022 14:20-0500Heart mdxt617 /minKristofer Calix MD Work Phone: [place] [address]-28-2022 14:20-0500Respiratory rate 16 /minKristofer Calix MD Work Phone: [facility]11-28-2022 14:20-0803AnT9% (BldA) [Mass fraction]97 %Kristofer Calix MD Work Phone: [facility]11-28-2022 14:20-0500Systolic blood aaddtdcf036 mm[Hg]Kristofer Calix MD Work Phone: [facility]10-03-2022 11:46-0400Body bnevmz472.7 cmVramos Calix MD Work Phone: [facility]10-03-2022 11:46-0400Body temperature 97.2 [degF]Kristofer Calix MD Work Phone: [facility]10-03-2022 11:46-0400Body .42 kgKristofer Calix MD Work Phone: [facility]10-03-2022 11:46-0400Diastolic blood jbkspoxd56 mm[Hg]Kristofer Calix MD Work Phone: [facility]10-03-2022 11:46-0400Heart rate88 /min Kristofer Calix MD Work Phone: [facility]10-03-2022 11:46-0400Respiratory rate 16 /minKristofer Calix MD Work Phone: [facility]10-03-2022 11:46-9362LaU4% (BldA) [Mass fraction]99 %Kristofer Calix MD Work Phone: [facility]10-03-2022 11:46-0400Systolic blood vxhpbtfo412 mm[Hg]Kristofer Calix MD Work Phone: [facility]04-22-2022 10:46-0400Blood Pressure [facility] CenterJULISACOMMUN[facility] 934-8675Xwtjzl-WshybMemorial [facility] 04-22-2022 10:46-0400Diastolic blood eusgtaer90 mm[Hg] PERNELL SIDELL 661-1503Kytoht-OzmsyMemorial Health System [facility] 04-22-2022 10:46-0400Heart rate96 /minDERIK SIDELL 236-0390Gbzkcw-RpvbhMemorial Health System [facility] 04-22-2022 10:46-4372DcX7% (BldA) [Mass fraction]99 % PERNELL SIDELL 319-7685Qhjqfv-GwqzzMemorial Health [facility] 04-22-2022 10:46-0400Systolic blood ulmovvot722 mm[Hg] PERNELL SIDELL 944-5501Xfqyrx-GfiusMemorial Health System [facility] Encounters Encounter DateEncounter [facility] ProviderFacilityStart: 03-11-2025 End: 10-99-0372bheaitgiaoRNZPWTGrant Hospitaltart: 03-11-2025 End: 53-38-4277Kdujfz outpatient visit 25 minutesSana Palma MD Work Phone: [phone]-Lwqot Medicine at [facility] Comment on above:Gestational diabetes mellitus (GDM) in second trimester controlled on oral hypoglycemic drug (Primary Dx); Antiphospholipid syndromeStart: 03-10-2025 End: 38-98-2457Olqupi flowsheetCorey Montez DO Work Phone: NORP Tobias OBGYNStart: 03-10-2025 End: 06-35-6325Ykoydu flowsheetCorey Montez DO Work Phone: NOVA Tobias OBGYNStart: 03-10-2025 End: 69-14-1733rbqvxdsxtwAAAZP FAZIONot AvailableStart: 03-06-2025 End: 43-24-8596Htmpaddqs Result EncounterCorey Montez DO Work Phone: noms External Department UnsolicitedStart: 03-06-2025 End: 18-06-6687Miizfitzw Result EncounterCorey Montez DO Work Phone: noms External Department UnsolicitedStart: 03-02-2025 End: 62-81-6900xmpgnthnbpWDRWR MARTINEZFacility:[facility] Hospitaltart: 02-27-2025 End: 74-63-2186Cedbmlocb Result EncounterCorey Montez DO Work Phone: noms External Department UnsolicitedStart: 02-27-2025 End: 50-05-9973Ollwlwudv Result EncounterCorey Montez DO Work Phone: noms External Department UnsolicitedStart: 02-23-2025 End: 64-62-2897Yffxiy flowsheetCorey Montez DO Work Phone: NOUG Tobias OBGYNStart: 02-23-2025 End: 32-42-6185Zanqbt flowsheetCorey Montez DO Work Phone: noms Piyush OBGYNStart: 02-23-2025 End: 50-74-0571rncdsztuykPCHSN FAZIONot AvailableStart: 02-23-2025 End: 03-29-1866Idfexx outpatient visit 15 minutesCorey Montez DO Work Phone: noms Tobias OBGYNComment on above:Third trimester ([facility]); 30 weeks gestation of ([facility])Start: 02-20-2025 End: 80-22-4881Rvzzrkkqr Result EncounterCorey Montez DO Work Phone: noms External Department UnsolicitedStart: 02-20-2025 End: 08-44-5727Evoezzclo Result EncounterCorey Montez DO Work Phone: noms External Department UnsolicitedStart: 02-17-2025 End: 77-30-6870Ujarjljns Result EncounterCorey Montez DO Work Phone: noms External Department UnsolicitedStart: 02-17-2025 End: 01-57-6569Lvbasgmtf Result EncounterCorey Montez DO Work Phone: noms External Department UnsolicitedStart: 02-16-2025 End: 06-83-0129Nmmxce consultation new/estab patient 80 Héctor Callahan MD MPH Work Phone: [facility]Comment on above:Antiphospholipid syndrome (Primary Dx); Antiphospholipid syndrome complicating , antepartum; History of CVA (cerebrovascular accident); Coordination of complex care; 29 weeks gestation of pregnancyStart: 02-16-2025 End: 48-60-4970lbfjvxsxtzFDMYK REDDY AMBATIGreen Cross Hospitaltart: 02-10-2025 End: 51-80-4168Xnqijbsgd encounterAnnita WELLS Work Phone: [phone]-Qzyhi Medicine at [facility] Start: 02-09-2025 End: 85-32-5473xmdrunwemvCQOTT FAZIONot AvailableStart: 02-09-2025 End: 98-44-1068Wdhwoz outpatient visit 15 minutesCorey Montez DO Work Phone: noms Tobias OBGYNComment on above:Third trimester ([facility]); 28 weeks gestation of ([facility]); Anemia complicating childbirth ([facility]); Anticoagulant long-term use; Antiphospholipid antibody positive; Blood pressure elevated without history of HTN; Coagulation defect, unspecified ([facility])Start: 02-06-2025 End: 61-79-4526sgauzaycxnMORLHOTQ P DOCHEVAEast [facility] HospitalStart: 02-06-2025 End: 03-43-5705Uvaipu outpatient visit 25 minutesMukul Noyola MD Work Phone: [phone]-Erfye Medicine at [facility] Comment on above:27 weeks gestation of (Primary Dx); Multigravida of advanced maternal age in third trimester; Gestational diabetes mellitus (GDM) in second trimester controlled on oral hypoglycemic drug; Antiphospholipid syndrome complicating , antepartum; Antiphospholipid syndromeStart: 02-05-2025 End: 09-89-8634hdelxbnoudBYHYE [facility]ulatory PPGStart: 02-03-2025 End: 21-43-9861jxhwdpqrziWwdkq R FAOFacility:FTMCStart: 01-19-2025 End: 95-89-7728tdjzairkihAXMFR FAONot AvailableStart: 01-19-2025 End: 75-90-2670Nfczyz outpatient visit 15 minutesCorey Montez DO Work Phone: NOOR Piyush OBGYNComment on above:Second trimester ([facility]); 25 weeks gestation of ([facility]); Gestational diabetes mellitus (GDM), antepartum, gestational diabetes method of control unspecified([facility]); Anticoagulant long-term use; Antiphospholipid antibody positive; Antiphospholipid antibody syndrome ([facility])Start: 56-59-5318mlusyexudiXchnw R FAZIOFacility:FTMCStart: 01-13-2025 End: 10-68-6562Eyumit outpatient visit 25 minutesColleen Maxim Mays PA-C Work Phone: [phone]-Shhvt Medicine at [facility] Comment on above:Gestational diabetes mellitus (GDM) in second trimester controlled on oral hypoglycemic drug (Primary Dx); Antiphospholipid syndrome; Other specified hypothyroidism; Antiphospholipid syndrome complicating , antepartumStart: 01-13-2025 End: 60-15-6700uvadhxvvukUASMUVZ E [facility] Hospitaltart: 01-09-2025 End: 79-67-9192Cmkbyczpm Batsheva Noyola MD Work Phone: [phone]-Xppji Medicine at [facility] Comment on above:Antiphospholipid syndrome (Primary Dx)Start: 01-07-2025 End: 10-05-6455Gemdmbiat encounterJacque Pat [facility]: 01-05-2025 End: 93-84-2988zcigswwtenQDFFQ FAONot AvailableStart: 01-05-2025 End: 78-46-1855Mhvndd outpatient visit 15 minutesCorey [employer] Work Phone: NOMS Pickett OBGYNComment on above:Second trimester ([facility]); 23 weeks gestation of ([facility]); Thyroid disease ; Gestational diabetes mellitus (GDM), antepartum, gestational diabetes method of control unspecified([facility]); Multigravida of advanced maternal age in second trimester ([facility]); H/O loss; Lightheaded; DizzinessStart: 01-05-2025 End: 15-01-3056Qijvfy flowsheetSemEquipy [employer] Work Phone: NOQT Tobias OBGYNStart: 01-05-2025 End: 45-84-2385Johlpu flowsheetCore Montez DO Work Phone: NOXH Piyush OBGYNStart: 01-05-2025 End: 13-90-7193Tkakethvpgqqz procedureDana-[facility] RNMaternal- Medicine at [facility]Comment on above:Multigravida of advanced maternal age in [...] Family history of autism; HyponatremiaStart: 01-01-2025 End: 01-92-2424Mkgwtx consultation new/estab patient 80 Margaux Noyola MD Work Phone: [facility] on above: 22 weeks gestation of (Primary Dx); Antiphospholipid syndrome complicating , antepartum; History of stroke; History of loss in prior , currently in second trimester; Gestational diabetes mellitus (GDM) in second trimester controlled on oral hypoglycemic drug; Multigravida of advanced maternal age in second trimester; Hypothyroidism affecting in second trimester; Family history of autism; HyponatremiaStart: 01-01-2025 End: [id number] Simon Warren RNMaternal Medicine [place] Comment on above:Multigravida of advanced maternal age in second trimester (Primary Dx); Antiphospholipid syndrome complicating , antepartum; Gestational diabetes mellitus (GDM) in second trimester controlled on oral hypoglycemic drug; Insulin controlled gestational diabetes mellitus (GDM) in second trimester; AMA (advanced maternal age) multigravida 35+, second trimester; Hypothyroidism, unspecified typeStart: 12-26-2024 End: [id number] Ty Noyola MD Work Phone: [facility] - LaborComment on above: Gestational diabetes mellitus (GDM) in second trimester controlled on oral hypoglycemic drug (Primary Dx)Start: 12-23-2024 End: [id number] encounter procedureKatherine Negrete APRN.CNP Work Phone: Hematology/OncologyStart: 12-23-2024 End: [id number] Negrete APRN.CNP Work Phone: Hematology/OncologyComment on above:Antiphospholipid antibody positive (Primary Dx); Iron deficiency anemia secondary to blood loss (chronic); Vitamin D deficiency; Primary hypercoagulable state (HCC)Start: 12-17-2024 End: 56-14-2003rbnwmdihltRSLCGOHR BROGANEast [facility] Hospital HospitalStart: 12-17-2024 End: 11-73-2040Yxlewf outpatient visit 25 minutesAlisa HUTTON Work Phone: [phone]-Ozqie Medicine at [facility] Comment on above:Gestational diabetes mellitus (GDM) in second trimester controlled on oral hypoglycemic drug (Primary Dx)Start: 12-17-2024 End: 36-27-0348euanzxozyhFFOXRBEQ BROCleveland [facility] HospitalStart: 12-16-2024 End: 73-41-6347Yuehglzah Result EncounterCorey Montez DO Work Phone: noms External Department UnsolicitedStart: 12-16-2024 End: 56-41-8798Njnjmeimj Result EncounterCorey Montez DO Work Phone: noms External Department UnsolicitedStart: 12-12-2024 End: 81-92-9844Gztiehgrl encounterDenikijacinta Kendall LD Work Phone: [phone]-Ufskp Medicine at [facility] Start: 12-11-2024 End: 41-01-3260Qluhaz flowsheetCorey Montez DO Work Phone: noms Piyush OBGYNStart: 12-11-2024 End: 92-25-4932Iqvuqf flowsheetCorey Montez DO Work Phone: noms Tobias OBGYNStart: 12-11-2024 End: 93-20-3525Emsijcycl Result EncounterCorey Montez DO Work Phone: noms External Department UnsolicitedStart: 12-11-2024 End: 04-41-7801rmczktllozBLDED FAZIONot AvailableStart: 12-11-2024 End: 72-49-0670Blxbxh outpatient visit 15 minutesCorey Montez DO Work Phone: noms Tobias OBGYNComment on above:19 weeks gestation of ([facility]); Second trimester ([facility]); Thyroid disease ; Multigravida of advanced maternal age in second trimester ([facility]); Gestational diabetes mellitus (GDM), antepartum, gestational diabetes method of control unspecified([facility])Start: 12-03-2024 End: 56-80-5239kwhwajfhhzAKTFEEND BROGANProMedica University Hospitals Samaritan Medical Centertart: 12-03-2024 End: 19-28-9754Xzanuo outpatient visit 25 minutesAlisa Saba [employer] MACHINE OPERATOR Work Phone: [phone]-Eiwbu Medicine at [facility] Comment on above:Insulin controlled gestational diabetes mellitus (GDM) in second trimester (Primary Dx)Start: 12-03-2024 End: 37-31-9035Xksbkigjb encounterAnni Abreu CMAMaternal- Medicine at [facility] Hospitaltart: 11-20-2024 End: 76-57-6508Jmzjnd flowsheetCorey Montez DO Work Phone: NOMS BCP OBStart: 11-20-2024 End: 22-44-8521Nrpidp flowsheetCorey Montez DO Work Phone: NOMS BCP OBStart: 11-20-2024 End: 31-66-0524akiaxtiasvCAASR FAZIONot AvailableStart: 11-20-2024 End: 03-61-5367Chvfez outpatient visit 15 minutesCorey Montez DO Work Phone: NOMS Tobias OBGYNComment on above:Second trimester ([facility]); 16 weeks gestation of ([facility]); Screening, , for anatomic survey ([facility]); Vaginal discharge; Sinus headacheStart: 11-19-2024 End: 92-89-0007fmloffqshdIsbmbt M Frey RN Work Phone: [phone]-Dtkjy Medicine at [facility] Comment on above:Gestational diabetes mellitus (GDM), antepartum, gestational diabetes method of control unspecified(Primary Dx)Start: 11-04-2024 End: 23-87-6234Ikrai Syd Noyola MD Work Phone: [phone]-Hqbup Medicine at [facility] Start: 10-30-2024 End: 67-21-7316Ydeytb flowsheetCorey Montez DO Work Phone: NOMS BCP OBStart: 10-30-2024 End: 39-16-0185Buutwo flowsheetCorey Montez DO Work Phone: NOMS BCP OBStart: 10-30-2024 End: 89-61-7859Whpuna outpatient visit 15 minutesCorey Montez DO Work Phone: NOMS BCP OBComment on above:Second trimester ([facility]); 13 weeks gestation of ([facility]); Thyroid disease ; Multigravida of advanced maternal age in second trimester ([facility]); Gestational diabetes mellitus (GDM), antepartum, gestational diabetes method of control unspecified([facility]); Elevated glucose tolerance testStart: 10-30-2024 End: 08-60-6928uikakgqzajHGBJH FAZIONot AvailableStart: 10-29-2024 End: 70-17-9117MkcyubSbemxdBunny Paz APRN.CNP Work Phone: Hematology/OncologyComment on above:Refill Request Start: 10-28-2024 End: 08-52-5135Pxvuxdw encounter Valentine Negrete APRN.CNP Work Phone: Hematology/OncologyStart: 10-28-2024 End: 38-99-0211blyewqsfwhPkaxiJuju Negrete APRN.CNP Work Phone: Hematology/OncologyComment on above:Primary hypercoagulable state (HCC) (Primary Dx); CVA, old, speech/language deficit; Cerebral hyponatremia; Personal history of TIA (transient ischemic attack)Start: 10-28-2024 End: 95-60-6483Zmujubgbm Gregoria Negrete APRN.CNP Work Phone: Cancer Appts MCComment on above:ResultsStart: 10-24-2024 End: 37-44-6401Ofbxcbneu Gregoria Negrete APRN.CNP Work Phone: Hematology/OncologyComment on above:Lab OrdersStart: 10-20-2024 End: 24-98-7941JyuvafDkbnd Abhyankar MD Work Phone: Hematology/OncologyComment on above:Refill Request Start: 10-13-2024 End: 83-41-8296BridbkDell Khan RNMaternal- Medicine at [facility]Comment on above:Gestational diabetes mellitus (GDM), antepartum, gestational diabetes method of control unspecified(Primary Dx)Start: 10-06-2024 End: 42-76-6966Uvdfoxhfo Result EncounterCorey Montez DO Work Phone: noms External Department UnsolicitedStart: 10-06-2024 End: 80-70-7417Tkmfzhyvg Result EncounterCorey Montez DO Work Phone: noms External Department UnsolicitedStart: 10-02-2024 End: 35-88-3601reprntfmdnXPCJU FAZIONot AvailableStart: 10-02-2024 End: 08-08-9968Qzodpy outpatient visit 5 minutesNoms Bcp Ob Montez NurseNOMS BCP OBComment on above:GA: 8x4aGsllq: 09-11-2024 End: 53-56-8234Nkhvyally Result EncounterCorey Montez DO Work Phone: noms External Department UnsolicitedStart: 09-11-2024 End: 67-14-5873Lvwjclqps Result EncounterCorey Montez DO Work Phone: noms External Department UnsolicitedStart: 09-09-2024 End: 64-98-6535jbrspuzhpxQcxbl A KAPLEFacility:Val PCStart: 09-09-2024 End: 12-69-0795Jbnbjyr encounter procedureScomike CASAS [phone]-DdptmOhiohealth [facility] Start: 09-07-2024 End: 77-84-4959cyrfpyfcveQaeem M. DempseyFacility:GIL NorwalkStart: 09-02-2024 End: 13-09-5751Stacqmzbb encounterNatmurphy Johnson RNHematology/OncologyComment on above:Patient UpdateStart: 08-26-2024 End: 47-16-4931Glljzhapm encounterKristofer Calix MD Work Phone: Hematology/OncologyComment on above:Lab OrdersStart: 08-23-2024 End: 29-92-5381knwrztbcyrQopdt R FAZIOFacility:FTMCStart: 08-23-2024 End: 00-71-8164Awfpolh encounter procedureCorecarmen Palmer MONTEZ [facility] Start: 07-25-2024 End: 73-71-1611ZgdozhWjmlv Abhyankar MD Work Phone: Hematology/OncologyComment on above:Refill Request Start: 07-24-2024 End: 06-41-0848Wepjxr flowsheetCorey Montez DO Work Phone: noms BCP OBStart: 07-24-2024 End: 54-51-5741Dajimy flowsheetCorey Montez DO Work Phone: noms BCP OBStart: 07-24-2024 End: 95-24-1392bdlxnksqmgEOUHM FAZIONot AvailableStart: 07-24-2024 End: 60-88-1914Ougzmf outpatient visit 15 minutesCorey Montez DO Work Phone: noms BCP OBComment on above:Irregular menstrual cycle Start: 07-09-2024 End: 84-75-1007ynzgrsitltKgvrwcm A VisciFacility:FTMCStart: 07-09-2024 End: 82-60-2159Gcobdai encounter procedureInez [place]field [facility] Start: 07-08-2024 End: 62-49-8972Nge-admission assessmentInez [place]field [facility] Start: 07-07-2024 End: 16-60-8062hyiylpvncsHrqsg A KAPLEFacilсветлана:Val PCStart: 06-30-2024 End: 39-83-1371zglrivqrmwYphty A KAPLEFacility:Val PCStart: 06-30-2024 End: 98-46-5009Fhlfoub encounter procedureScomike CASAS [phone]-FobwhOhiohealth [facility] Start: 06-23-2024 End: 85-45-9639Jqceeq outpatient visit 15 minutesCorey Montez DO Work Phone: noms [facility] OBComment on above:Vaginal bleeding; Dizziness; Abnormal TSH; Vaginal discharge; Pelvic pain in femaleStart: 06-23-2024 End: 33-04-7033jfnehdrbepSNDOJ FAZIONot AvailableStart: 06-23-2024 End: 83-20-9713Afsakruz Result EncounterCorey Montez DO Work Phone: noms External Department UnsolicitedStart: 06-23-2024 End: 61-75-0018Stspdpld Result EncounterCorey Montez DO Work Phone: noms External Department UnsolicitedStart: 06-19-2024 End: 23-68-4816uyfxwcrrvqAUSSKF R CIERSEZWSKIFacility: MilanStart: 06-19-2024 End: 53-61-0290Tsbktki encounter procedureJACLYN Jeanine BACA [phone]-BxudlMemorial Health [facility] Start: 06-12-2024 End: 13-88-6768lwhigcihmjQtjyk R SHYLAZIOFacility:FTMCStart: 06-12-2024 End: 73-78-4889Yqjdfxw encounter procedureCorey R MONTEZ [facility] Start: 06-09-2024 End: 26-31-3826icscqffmpoJybdr A KAPLEFacility:Val PCStart: 06-09-2024 End: 69-02-9567Flhirju encounter procedureCorey R MONTEZ [facility] Start: 06-06-2024 End: 78-97-0477fosxrdosvrKEIUSL A LEHMANNFacility:FT BellevueStart: 06-02-2024 End: 20-30-8768exgvmesslkDQJSD FAZIONot AvailableStart: 06-02-2024 End: 22-75-3721Xmjgdn outpatient visit 15 minutesCorey Montez DO Work Phone: noms BCP OBComment on above:Follow-up visit after miscarriage; Abnormal TSH; History of thyroid diseaseStart: 05-28-2024 End: 55-73-0040Fftdxkyyz encounterKristofer Calix MD Work Phone: Cancer Appts MCStart: 05-28-2024 End: 52-59-6873Irdtvo outpatient visit 25 minutesKristofer Calix MD Work Phone: Hematology/OncologyComment on above:Primary hypercoagulable state (HCC) (Primary Dx); CVA, old, speech/language deficit; Iron deficiency anemia secondary to blood loss (chronic); Vitamin D deficiency; Antiphospholipid antibody syndrome (HCC)Start: 05-28-2024 End: 25-19-7450bjlvteabfxLJZBO ABHYANKARFacility:[facility] Hospitaltart: 37-63-3088rxkppvpbsfCdcfo A KAPFacility:[place] PCStart: 05-14-2024 End: 13-22-4017Kqrmvegoz encounterNatmurphy Johnson RNHematology/OncologyComment on above:Patient UpdateStart: 05-10-2024 End: 19-68-1970Wvwbkdkrp Result EncounterCorey Montez DO Work Phone: noms External Department UnsolicitedStart: 05-10-2024 End: 48-50-4852Gfbbuudje Result EncounterCorey Montez DO Work Phone: noms External Department UnsolicitedStart: 05-10-2024 End: 46-06-1034ehovrhtnieAmhcr FazioFiC[facility] Work Phone: Start: 05-10-2024 End: 43-10-3956Edhtzfom ReferredCorey Montez DO Work Phone: [facility]-LAB Path Spec Piyush HospStart: 05-06-2024 End: 43-70-8461zckmhjlrjfCDQTG FAZIONot AvailableStart: 05-06-2024 End: 48-78-8150Dydrum flowsheetCorey Montez DO Work Phone: noms BCP OBStart: 05-06-2024 End: 80-39-1830Eotvle flowsheetCorey Montez DO Work Phone: NOCP BCP OBStart: 05-06-2024 End: 81-16-3964otyvjdknweZFJXE FAZIONot AvailableStart: 05-06-2024 End: 11-14-8989Fwanad outpatient visit 15 minutesCorey Montez DO Work Phone: noms BCP OBComment on above:14 weeks gestation of ; Second trimester ; Confirm viability with history of miscarriage, ultrasoundStart: 04-28-2024 End: 23-51-3638AycxknNthdg Abhyankar MD Work Phone: Hematology/OncologyComment on above:Refill Request Start: 04-12-2024 End: 09-37-4706Iyshziosg Result EncounterCorey Montez DO Work Phone: noms External Department UnsolicitedStart: 04-12-2024 End: 71-49-8008Lceowzznd Result EncounterCorey Montez DO Work Phone: noms External Department UnsolicitedStart: 04-05-2024 End: 22-55-8781Sgerkinbh Result EncounterCorey Montez DO Work Phone: noms External Department UnsolicitedStart: 04-05-2024 End: 89-05-4465Twpmcnygt Result EncounterCorey Montez DO Work Phone: noms External Department UnsolicitedStart: 04-04-2024 End: 42-21-5399pzdcrzuzwwMZUXU FAZIONot AvailableStart: 04-04-2024 End: 46-92-4690Kcsdzf outpatient visit 5 minutesNoms Bcp Ob Montez NurseNOMS BCP OBComment on above:GA: 1t9lRklvo: 03-01-2024 End: 42-05-9609rhvmsosdlcApcts R FAZIOFacility:FTMCStart: 03-01-2024 End: 19-52-8456Fedqtrv encounter procedureCorey R MONTEZ [facility] Start: 02-27-2024 End: 53-25-5015twuomfcewiQqwvh R FAZIOFacility:FTMCStart: 02-27-2024 End: 89-01-0465Lrzvexcng encounterNatmurphy Johnson RNHematology/OncologyComment on above:Patient QuestionStart: 02-25-2024 End: 65-26-1354damxfjqkwvFzaqm R FAZIOFacility:FTMCStart: 02-25-2024 End: 56-25-6773Ndsvygm encounter procedureCorey R MONTEZ [facility] Start: 02-23-2024 End: 91-60-0253ajhtxrjfzcLdzgg A KAPLEFacility:FTMCStart: 02-23-2024 End: 40-17-3705Bqmmvco encounter procedureCorey R MONTEZ [facility] Start: 02-05-2024 End: 32-37-8997tgdhukntofSjlzf A STEPHANILEFacility:Val PCStart: 02-05-2024 End: 08-33-2269Ljpowfa encounter procedureScott A KAPLE [phone]-VvlwaOhiohealth [facility]ide [facility] Start: 02-05-2024 End: 97-65-9104Tmrc adult monitoring check doneScott A STEPHANILE [phone]-JmkmnOhiohealth Riverside [facility] Start: 02-02-2024 End: 79-76-0527dyhuyohhpgPqnwcy GudimellaFacility:GIL TaylorkStart: 02-02-2024 End: 67-39-6766Aelbvie encounter procedurePreeti Merlincatiesherry [phone]-PnujtOhiohealth [facility]ide [facility] Start: 45-52-4759samkjqqjfqNtuul A STEPHANI Facility:[place] PCStart: 01-24-2024 End: 72-62-9043QdeuczAwrak Abhyankar MD Work Phone: Hematology/OncologyComment on above:Refill Request Start: 01-02-2024 End: 93-10-3356Qzdyerzyv encounterKristofer Calix MD Work Phone: Cancer Appts MCComment on above:ResultsStart: 01-02-2024 End: 43-94-4156Xltmin outpatient visit 15 minutesKristofer Calix MD Work Phone: Hematology/OncologyComment on above:Iron deficiency anemia secondary to blood loss (chronic) (Primary Dx); Vitamin D deficiency; Malaise and fatigueStart: 12-17-2023 End: 21-60-5824Emfmdjtci encounterNatalimaxim Johnson RNHematology/OncologyStart: 12-06-2023 End: 76-64-5371ymplotysurEikldiukx L ClarkFacility:FTMCStart: 12-06-2023 End: 75-82-0058Afopwid encounter procedureMonica Saba [facility] Start: 08-57-4180gncfoltukjNzomq A STEPHANI Facility:[place] PCStart: 11-29-2023 End: 03-63-9854qdhdqzicywUajfy Abhyankar MD Work Phone: Hematology/OncologyComment on above:Iron infusion side effects?Refill RequestIron deficiency anemia of (Primary Dx); Iron deficiency anemia secondary to blood loss (chronic)Start: 11-22-2023 End: 09-02-0519wylhewsczzPopet Angelito Claudio Work Phone: Hematology/OncologyComment on above:Iron deficiency anemia of (Primary Dx); Iron deficiency anemia secondary to blood loss (chronic)Start: 11-15-2023 Telephone encounterFinancial Navigator Delgado Work Phone: Hematology/OncologyStart: 11-15-2023 End: 77-24-5805yzcbetvcduMhbgt Angelito Stew Work Phone: Hematology/OncologyComment on above:Iron deficiency anemia of (Primary Dx); Iron deficiency anemia secondary to blood loss (chronic)Start: 11-09-2023 End: 09-35-9144Uwzyrew encounter procedureElirachna Saba [phone]-CbyeoOhiohealth Riverside [facility] Start: 11-09-2023 End: 24-87-1175Yfrtxn WorkLori Penelope FLYNNematology/OncologyStart: 11-05-2023 Telephone encounterKristofer Calix MD Work Phone: Cancer Appts MCComment on above:AppointmentStart: 10-23-2023 End: 65-48-9537lahfhsncefYelahwg Grace MisslerFacility:Val PCStart: 10-23-2023 End: 83-42-4673Hbfrklq encounter procedureLourdes Garber [phone]-LdflpOhiohealth Riverside [facility] Start: 09-28-2023 End: 47-34-0193Becvhtvya department patient visitBenny Uribe [facility] Start: 09-28-2023 End: 96-24-6797wkgaucxygeTNDelma DUNHAMFacility:GIL TaylorkStart: 09-28-2023 End: 02-26-5681Fqokkqq encounter procedureJANET DUNHAM [phone]-JwnsnOhiohealth Riverside [facility] Start: 57-07-7371Lljqgnmrq encounterKristofer Calix MD Work Phone: Canjuf Appts MCComment on above:Appointment RescheduledStart: 09-21-2023 End: 67-10-1592ieacqcnmwsKjhbv Abhyankar MD Work Phone: Hematology/OncologyComment on above:Iron deficiency anemia secondary to blood loss (chronic) (Primary Dx)Start: 09-21-2023 End: 22-10-5146Qdifkstjvsgc consultation with Song Calix MD Work Phone: Hematology/OncologyStart: 08-03-2023 End: 99-85-4766ufjrcnwjeqDmqce A KAPLEFacility:Val PCStart: 08-03-2023 End: 26-32-3700Vpicxhy encounter procedureScott Cecily CASAS [phone]-BcplhOhiohealth Riverside [facility] Start: 06-29-2023 End: 01-01-1872dgdsfztjodLmasx A KAPLEFacility:Val PCStart: 06-29-2023 End: 83-41-3351Vnbjlux encounter procedureScott A KAPLE [phone]-TvkrgOhiohealth Riverside [facility] Hospital [facility] Start: 77-15-9220omvvnefaybJifipul Powell floor polisher/OncologyComment on above:Lab results/recommendationsStart: 06-19-2023 E-mail encounter from Jose Carlos Johnson RNSANDUSKYStart: 06-15-2023 End: 48-55-4481Sngfhz outpatient visit 25 minutesKristofer Calix MD Work Phone: Hematology/OncologyComment on above:Vitamin D deficiency (Primary Dx); Hypercalcemia; Iron deficiency anemia secondary to blood loss (chronic)Start: 06-15-2023 Telephone encounterKristofer Calix MD Work Phone: Cancer Appts MCComment on above:ResultsStart: 66-40-2351Kuvdjmaqc encounterKristofer Calix MD Work Phone: Hematology/OncologyComment on above:Lab OrdersStart: 07-36-9590Ablrhvgmw encounterKristofer Calix MD Work Phone: Cancer Appts MCComment on above:Future Appointment Start: 05-31-2023 End: 56-37-4354tkihsqmpwxBeqzz Abhyankar MD Work Phone: Hematology/OncologyComment on above:Primary hypercoagulable state (HCC) (Primary Dx); CVA, old, speech/language deficit; Hypercalcemia; Vitamin D deficiency; Iron deficiency anemia secondary to blood loss (chronic); Malaise and fatigueStart: 05-31-2023 End: 48-16-8720Tzpdrgchgeuu consultation with Song Calix MD Work Phone: SANDUSKYStart: 05-25-2023 End: 08-53-0395wwovligswpYcmhj A KAPLEFacility:Val PCStart: 05-25-2023 End: 96-17-0006Enmlbcl encounter Coreen CASAS [phone]-KxlzsOhiohealth Riverside [facility] Start: 05-01-2023 End: 99-15-2992mjijqmviveAqmdb A KAPLEFacility:FTMCStart: 04-27-2023 End: 03-61-7541Asl Drop offSelissa CASAS [facility] Start: 04-27-2023 End: 39-85-7446lukqupboxrTztev A KAPLEFacility:FTMCStart: 04-25-2023 End: 43-88-8210imxrdjogkeGmkj L SchwabFacility:FT FM BellevueStart: 03-19-2023 End: 41-07-5728qtuclwkbihLwemrVernell Calix MD Work Phone: Hematology/OncologyComment on above:Primary hypercoagulable state (HCC) (Primary Dx); Iron deficiency anemia secondary to blood loss (chronic); Vitamin D deficiency; CVA, old, speech/language deficit; Antiphospholipid antibody syndrome (HCC)Start: 03-19-2023 End: 18-10-4747Fwvqzhyxncfm consultation with Song Calix MD Work Phone: SANDUSKYStart: 02-15-2023 End: 56-69-0359czyrqfiogqThhrb A KAPLEFacility:[place] PCStart: 02-15-2023 End: 47-35-9801Yztyofv encounter procedureScomike CASAS [phone]-BigynOhiohealth Riverside [facility] Start: 94-00-1891jioyufppdcPsekn A KAPLE Facility:[place] PCStart: 12-26-2022 End: 51-74-2652xzzswwccfhDwajzmw Grace MisslerFacility:[place] PCStart: 12-26-2022 End: 50-44-7903Ynhpywa encounter procedureLourdes Garber [phone]-IqgpjOhiohealth Riverside [facility] Start: 12-22-2022 End: 87-54-5462mnecqvnqhrKgspi Abhyankar MD Work Phone: Hematology/OncologyComment on above:Primary hypercoagulable state (HCC) (Primary Dx); Iron deficiency anemia of ; Iron deficiency anemia secondary to blood loss (chronic); Vitamin D deficiencyStart: 12-22-2022 End: 79-61-9245Nvyhatydylkp consultation with Song Calix MD Work Phone: SANDUSKYStart: 08-85-1650Iypoqgsvl encounterKristofer Calix MD Work Phone: Cancer Appts MCComment on above:AppointmentStart: 10-20-2022 End: 60-98-5772Pbieyyl encounter procedureScott A KAPLE [phone]-YufccOhiohealth Riverside [facility] Start: 09-28-2022 End: 87-18-6533ibcrzbimgwVqodiVernell Calix MD Work Phone: Hematology/OncologyComment on above:Primary hypercoagulable state (HCC); CVA, old, speech/language deficit; Cerebral hyponatremiaStart: 09-28-2022 End: 96-33-5634Wkcrryjrlaey consultation with Song Calix MD Work Phone: SANDUSKYStart: 09-26-2022 End: 08-48-8050Zynyayk encounter procedureKristofer Calix [facility] Start: 61-95-7786Bpfydsyjl encounterValeri Yeung RN Hematology/OncologyComment on above:OrdersStart: 09-05-2022 End: 45-95-0718Fusrpyv encounter procedureCorey R MONTEZ [facility] Start: 08-07-2022 End: 33-06-8675Waoaogh encounter procedureCorey R MONTEZ [facility] Start: 07-27-2022 End: 45-42-7202Zvokfd outpatient visit 25 minutesKristofer Calix MD Work Phone: Hematology/OncologyComment on above:Primary hypercoagulable state (HCC) (Primary Dx); Iron deficiency anemia secondary to blood loss (chronic); CVA, old, speech/language deficitStart: 26-09-1907QuurfcWekcq Abhyankar MD Work Phone: Hematology/OncologyComment on above:Refill Request Start: 05-16-2022 End: 99-99-6333xttvunuoepSX WILTON FAZIOFacility:I1Lpirz: 05-10-2022 End: 96-81-3787fzzdlqjhalGW WILTON FAZIOFacility:S3Zzyeg: 05-08-2022 End: 96-96-8644Thhofyctba and management of inpatientDR KALPANA THOMAS Facility:A3Lcvca: 05-05-2022 End: 85-16-5395babavetuneSJ KALPANA THOMASFacility:U5Ryiuc: 05-01-2022 End: 08-79-6669nnqxrcqbqzRO WILTON FAZIOFacility:L1Xmfli: 04-28-2022 End: 55-76-6983jomytzbblnFW WILTON FAZIOFacility:W0Soila: 04-24-2022 End: 49-81-5960qgppzuqafvZE KALPANA THOMASFacility:Y4Fslop: 04-20-2022 End: 92-89-7381swvrvkggwhTaobn 10 Stew Work Phone: Hematology/OncologyComment on above:Iron deficiency anemia secondary to blood loss (chronic) (Primary Dx); Iron deficiency anemia of pregnancyStart: 04-19-2022 End: 44-34-7731nyevngrwdiPL WILTON FAZIOFacility:Q8Kfyzo: 04-14-2022 End: 42-06-2363ffynwyhsmtSQ WILTON FAZIOFacility:O6Liiyu: 04-07-2022 End: 70-05-5201uogjdvicgnMH WILTON FAZIOFacility:I3Kgrbs: 79-37-3617VmfizyRdpnbSalvador Calix MD Work Phone: Hematology/OncologyComment on above:Refill Request Start: 04-05-2022 End: 10-84-8204joryjismahVlcuh 11 Stew Work Phone: Hematology/OncologyComment on above:Iron deficiency anemia secondary to blood loss (chronic) (Primary Dx); Iron deficiency anemia of pregnancyStart: 18-79-8355Ekxownhzn Foster Gonzalez Hematology/OncologyComment on above:Appointment; Patient Question; Medication Question; OrdersStart: 03-31-2022 End: 09-89-2255ibktrrwepkBB WILTON FAZIOFacility:L4Nbkah: 03-27-2022 End: 66-50-2426fcqnfirxrlTnvgqVernell Calix MD Work Phone: Hematology/OncologyComment on above:Iron deficiency anemia secondary to blood loss (chronic); Iron deficiency anemia of pregnancyStart: 03-27-2022 End: 17-73-2300Fbycyvl encounter procedureKristofer Calix MD Work Phone: SANDUSKYStart: 33-88-1807Ggrfjvyaj encounterKristofer Calix MD Work Phone: Cancer Appts MCComment on above:ResultsStart: 03-24-2022 End: 65-30-6766ftdxsspvopKT WILTON FAZIOFacility:R5Ljfqu: 03-16-2022 End: 62-81-1481cxhbvedbhvRJ WILTON FAZIOFacility:V9Xlqvy: 02-24-2022 End: 32-93-5892exiduwiplwNH WILTON FAZIOFacility:N9Izebb: 02-14-2022 End: 60-17-9707jfkpsvsdvyQP WILTON FAZIOFacility:J8Iuphv: 01-30-2022 End: 76-14-5975evnzwhizznTohsbVernell Calix MD Work Phone: Hematology/OncologyComment on above:Primary hypercoagulable state (HCC) (Primary Dx); CVA, old, speech/language deficit; Antiphospholipid antibody syndrome (HCC); Anemia, unspecified typeStart: 01-30-2022 End: 07-75-3370Asbcask encounter Dionicio Calix MD Work Phone: SANDUSKYStart: 01-24-2022 End: 64-47-1771yvfrrtunhfIU [facility] FAZIOFacility:Z5Ofwcp: 01-24-2022 End: 42-92-3072dxfmnxblqaUW [facility] FAZIOFacility:T4Zjpza: 01-07-2022 End: 50-95-6418wrmrryrlahJB [facility] FAZIOFacility:W8Tkjqb: 14-67-4115HddcfvZxysmnAwilda Pope RN Work Phone: Hematology/OncologyComment on above:Refill Request Start: 12-28-2021 End: 95-96-4554kdervhehiaQK [facility] FAZIOFacility:Y9Krdfq: 11-21-2021 End: 52-92-0278wavtyrjaklIXKMI A KAPLERegency Hospital Toledotart: 11-21-2021 End: 45-75-7579Zawzvmovda hospital visit by Sean Casas Work Phone: stVZ LaboratoryStart: 11-14-2021 End: 75-09-0134Gvrsrur encounter procedureSSelect [facility] Start: 13-98-3416xrgkibjbrcZI [facility] FAZIOFacility:H1 Start: 10-25-2021 End: 94-77-4458faaaqjcsiwJN WILTON FAZIOFacility:J5Gdbvn: 16-22-4749DbnlapBhmac Nickelson RNHematology/OncologyComment on above:Refill RequestStart: 09-23-2021 End: 15-18-4446nsnerbocmhIN WILTON FAZIOFacility:E3Lvdui: 42-74-9152Fjomqpzli encounterMeme Easton RNHematology/OncologyComment on above:Medication QuestionStart: 42-56-9615Gzinmzxix encounterMeme Easton floor polisher/OncologyComment on above:Patient QuestionStart: 09-01-2021 End: 55-99-6984nbtulmawmzJA WILTON FAZIOFacility:U4Ffnoz: 08-31-2021 End: 58-47-0801Ousbvjc encounter Coreen CASAS [facility] Start: 08-29-2021 End: 49-29-1224srmmygxhmhQT WILTON FAZIOFacility:G7Jsvne: 08-26-2021 End: 70-11-7847yikvrlbcfbOO WILTON FAZIOFacility:C1Ucdvw: 08-24-2021 End: 09-29-4660pctxyjkttcPV WILTON FAZIOFacility:B8Orwvr: 12-58-4760Jrijvmewp encounterMeme Easton RNHematology/OncologyComment on above:Patient Question Start: 08-19-2021 End: 97-27-1208Pzvcilm encounter procedurePERNELL LONGORIA [facility] Start: 08-19-2021 End: 89-04-2261Zbj Drop offPERNELL LONGORIA [facility] Start: 08-19-2021 End: 68-16-6390Flvngid encounter procedurePERNELL LONGORIA [phone]-MdcvwOhio[facility] [place] Start: 62-77-2071Mmjklalkv encounterKristofer Calix MD Work Phone: Cancer Appts MCComment on above:Future Appointment Start: 08-01-2021 End: 62-31-4994Nvzmvnx evaluation of patient and reportMa Nurse Delgado Golden Work Phone: Hematology/OncologyComment on above:Infective urethritis (Primary Dx)Start: 58-86-1520Gfumyoj encounter procedureHaseeb MorelFacility:[facility] BStart: 24-32-5470Pgxpsyv encounter procedure ERIKA LONDONFacility:9459Start: 05-25-2017 End: 47-31-1477HnanilbxlvYQMNK R [facility] Procedures DateProcedureProcedure DetailPerforming ClinicianStart: 83-33-6088OV OB BPP W NON-STRESSCorey Montez DO Work Phone: Start: 94-04-7169NG OB BPP W NON-STRESSCorey Montez DO Work Phone: Start: 39-30-8813Vkoen dip stick/tablet rgnt non-auto w/o micrscpCorey Montez DO Work Phone: Start: 31-90-6603RU OB BPP W NON-STRESSCorey Montez DO Work Phone: Start: 08-24-8970NG OB GROWTHCorey Montez DO Work Phone: Start: 45-66-0443HKN CBC WITH AUTO DIFFCorey Montez DO Work Phone: [phone]: 95-59-9809Escqz dip stick/tablet rgnt non-auto w/o micrscpCorey Montez DO Work Phone: Start: 06-32-6710Ybwhh dip stick/tablet rgnt non-auto w/o micrscpCorey Montez DO Work Phone: Start: 74-99-9470Uvtnm dip stick/tablet rgnt non-auto w/o micrscpCorey Montez DO Work Phone: Start: 99-53-8249KU OB CERVICAL LENGTHCorey Montez DO Work Phone: Start: 07-14-3579SFK UA (CLEAN/CATCH) HOSPITALIST NOCTURNIST PHYSICIAN/MICRO IF IND.Wilton Montez DO Work Phone: Start: 62-01-3990CZR THYROID STIM HORMONECorey Montez DO Work Phone: Start: 49-69-8124Ggwdy dip stick/tablet rgnt non-auto w/o micrscpCorey Montez DO Work Phone: Start: 11-28-4092Czdcg dip stick/tablet rgnt non-auto w/o micrscpCorey Montez DO Work Phone: Start: 01-54-2442Vuqtncj quantitative blood xcpt reagent stripCharles Cortes MD Work Phone: Start: 73-84-2166Tnqfd dip stick/tablet rgnt non-auto w/o micrscpCorey Montez DO Work Phone: Start: 67-97-6365Nmeoo of thyroid stimulating hormone tshNot In System Ref ProvStart: 77-20-5487Aqqgbcqi screenMukul Noyola MD Work Phone: Start: 97-55-0412Lurt scrn 1+ class nonchromoNot In System Ref ProvStart: 54-68-9040Zhosjoywes glycosylated o3iKpacwtqo Provider ExternalStart: 15-21-7149WSU 1&2 AB/AG SCREEN (P24 AG)Not In System Ref Prov Start: 41-91-6636Tqyu ia hepatitis b surface antigenNot In System Ref ProvStart: 68-80-5758YMKP AND SCREENNot In System Ref ProvStart: 68-09-9179HLS CBC WITH AUTO DIFFCorey Montez DO Work Phone: Start: 40-43-6229Zqoef dip stick/tablet rgnt non-auto w/o micrscpCorey Montez DO Work Phone: Start: 94-73-6362GZ OB TRANSVAGINALCorey Montez DO Work Phone: Start: 54-08-3117Whujj test visual color cmprsn methsCorey Montez DO Work Phone: Start: 54-70-0168QZNTNRUJZ VAGINITIS (HTRX)Wilton Montez DO Work Phone: Start: 44-10-4404Upfip dip stick/tablet rgnt non-auto w/o micrscpCorey Montez DO Work Phone: Start: 91-50-8804FP PELVISCorey Montez DO Work Phone: Start: 52-78-2536To uterus limited 1/> fetusesCorey Montez DO Work Phone: Start: 72-70-9764UYT CBC WITH AUTO DIFFCorey Montez DO Work Phone: Start: 70-77-5647PWQ IMMUNOGLOBULIN GCorey Montez DO Work Phone: Start: 75-63-4869XNN IMMUNOGLOBULIN MCorey Montez DO Work Phone: Start: 46-57-1096ZQC MISCELLANEOUS TESTCorey Montez DO Work Phone: Start: 49-57-4492KDO APTTCorey Montez DO Work Phone: Start: 11-33-2857TVJSSC V LEIDEN MUTATIONCorey Montez DO Work Phone: Start: 92-99-9990XUYIK HOMOCYSTEINECorey Montez DO Work Phone: Start: 56-27-3318XKRH FIBRINOGENCorey Montez DO Work Phone: Start: 23-63-5656ETCPVIR C-FUNCTIONALCorey Montez DO Work Phone: Start: 91-57-6099YIAKAED S-ANTIGENCorey Montez DO Work Phone: Start: 99-72-0525LOUPHD PROTHROMBIN TIME INR W/O COUM Wilton Montez DO Work Phone: Start: 34-64-6942AVF ANTITHROMBIN ACTIVITYCorey Montez DO Work Phone: Start: 20-43-7097Auofe dip stick/tablet rgnt non-auto w/o micrscpCorey Montez DO Work Phone: Start: 81-75-5024RPH TESTCorey Montez DO Work Phone: Start: 64-02-8408TUN DRUG SCREEN RAPID (URINE)Wilton Montez DO Work Phone: Start: 14-11-4539OK OB TRANSVAGINALCorey Montez DO Work Phone: Start: 04-04-2024 End: 11-63-0180Wadcr dip stick/tablet rgnt non-auto w/o micrscpCorey Montez DO Work Phone: Start: 88-35-9343Sonvoyl refused by patient Immunization not carried out because of patient decisionNoms NurseStart: 55-05-7635Zkndlbqn of Products of Conception, External ApproachDR WILTON HERRMANN Start: 45-65-6786Hqga bld gluc mntr dev cleared fda spec home useCcf Provider Start: 79-22-7070Kwfvnjxnswl observation [Identifier] in Cervix by Cyto stain Wilton Herrmann DO Work Phone: Start: 11-21-2021 End: 11-32-2710Nxgze-fetoprotein serumScanning Provider ExternalStart: 11-21-2021 End: 27-52-0061DWNZGPC STUDY NON-PROMEDICAScanning Provider ExternalStart: 82-41-1289NUYJKROQDZMXQ TESTINGSraubrie Mullins MD Work Phone: Start: 46-16-5087Mzhjq depression screening assessment Nevin Golden Work Phone: Start: 82-39-5650TSX CULTUREDHRUV PATELStart: 38-94-1138NGVNIJMBJ PATELStart: 52-25-9279XVM CELL COUNT WITH DIFFERENTIALDHRUV PATELStart: 59-02-3592MOZZSSP SIMPSON VIRUS PCRDHRUV PATELStart: 07-05-3963QPDANFQ, CSFDHRUV PATELStart: 58-37-2234QWORCQ BASIC PROTEIN, CSFDHRUV PATELStart: 54-21-9287BWJOHKBYOVO BANDINGDHRUV PATELStart: 15-39-5083OMWUMAI, CSFDHRUV MONGE Start: 17-09-8889JHQUGPU-INRDHRUV PATELStart: 24-24-7423Gxrryk puncture lumbar diagnosticDHRUV PATELStart: 01-71-3610FILBUWPRGTNKVYSH ANTIBODY PANELDHRUV MONGE Start: 17-63-4567LECXXDQIUQM AB IGG, IGM, IGADHRUV PATELStart: 44-84-0871EQIXDBY PATELStart: 92-17-2748PJJSGCKDTELQ, SERUMDHRUV PATELStart: 73-14-2485AZJC ARUP 1DHRUV PATELStart: 34-70-3054CEQIAKKIUPY PATELStart: 56-36-5350CJCNLCHPAFCL PATELStart: 75-84-8775Vmknhx of breastDERIK SIDELL Start: 27-67-1158Gnqskgdtgg of wisdom toothDERIK SIDELL endoscopy for ovarian cysts to drainDERIK SIDELL Vaccine refused by patientCOVID-19 vaccine dose declined( Confirmed )PERNELL SIDELL Plan of Treatment DateCare ActivityDetailAuthorStart: 48-88-4082HTH Vaccine (1 - 1-dose 75+ series)RSV Vaccine (1 - 1-dose 75+ series)[facility] Hospitaltart: 75-95-1815Nezho BMI ScreeningAdult BMI ScreeningMercy Health Defiance Hospital SystemStart: 57-83-5165Iiqubnb ScreeningTobacco ScreeningMercy Health Defiance Hospital SystemStart: 47-00-5408Wsgobsw ScreeningTobacco ScreeningMercy Health Defiance Hospital SystemStart: 01-05-2026 End: 64-81-9870VL MFM with or without consultUS MFM with or without consult Imaging Routine Multigravida of advanced maternal age in second trimester Antiphospholipid syndrome complicating , antepartum Gestational diabetes mellitus (GDM) in second trimester controlled on oral hypoglycemic drug AMA (advanced maternal age) zaqnprdiqqne70+, second trimester Hypothyroidism, unspecified type History of stroke History of loss in prior , currently in second trimester Hypothyroidism affecting in second trimester Family history of autism Hyponatremia Expected: 01/05/2026 (Approximate), Expires: 01/05/2026[employer] Work Phone: comment on above:Expected: 01/05/2026 (Approximate), Expires: 01/05/2026Start: 21-79-6687Gbtuk BMI ScreeningAdult BMI Screening [facility] SystemStart: 74-97-6227Jtpljxa ScreeningTobacco Screening [facility] SystemStart: 43-45-6102Tvhxs BMI ScreeningAdult BMI Screening [facility] SystemStart: 04-07-2025 End: 64-26-1953Yizahrsgzawk consultation with jedjkyq7904/07/2025 1:30 PM EST Telemedicine Maternal- Medicine at [facility] [address] [facility] [phone] Roxana Mays PA-C [address] [place] [address] M[facility]- Medicine at [facility] HospitalStart: 03-17-2025 End: 22-99-8606Tsauidschhpu consultation with ehyjrtd5203/17/2025 8:30 AM EST Telemedicine [facility] Rheumatology, A Department of [address] [address] Sam Callahan MD [address] [address] [facility], A Department of [facility] HospitalStart: 03-10-2025 End: 97-82-5515Momhozc encounter xarzszrcs85/11/2025 9:50 AM EST Routine NOMJaylan COLVIN [address] [place], [place] Wilton Herrmann DO [address] [address] NOMS Piyush OBGYNStart: 03-10-2025 End: 49-32-9531Gpjcjazrdzaf consultation with odepeli9003/10/2025 8:00 AM EST Telemedicine Maternal- Medicine at [facility] [address] [facility] [phone] Sana Palma MD [address] [place] [address] [facility]: 19-37-5320CNS ( or age 60+ yrs) (1 - Risk 1-dose series)RSV ( or age 60+ yrs) (1 - Risk 1- dose series)[facility] SystemStart: 03-02-2025 End: 90-79-0820Pnhjvo-up txohfeftz95/03/2025 11:30 AM EST Visit (SP) Office Hematology/Oncology [address] [place] [address] Katherine Negrete APRN.RAND BUTTING MACHINE OPERATOR [address] [place] [address] 2 month follow upHematology/OncologyComment on above:2 month follow upStart: 03-02-2025 End: 36-95-5513Lcwnxsn encounter bnrdohtas46/03/2025 11:15 AM EST Office Visit [place] [facility] [place] [facility] [address] [place] [address] labNortFormerly [facility] LaboratoryComment on above:labStart: 02-23-2025 End: 18-82-8354Zwidvzm encounter gdtxwmgov79/27/2025 9:00 AM EDT Routine NOMJaylan ROBBGYN [address] [place], [id number] Wilton Herrmann DO [address] [place] [address] SHILOH [place] OBGYNStart: 02-18-2025 End: 12-11-5528WGE W Auto Differential panel - BloodCOMPLETE BLOOD COUNT AND DIFFERENTIAL Lab Routine 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) Vitamin D deficiency Primary hypercoagulable state (HCC) Expected: 02/18/2025, Expires: 05/20/2025leveland ClinicComment on above:Expected: 02/18/2025, Expires: 05/20/2025Start: 02-18-2025 End: 74-33-8010Vgagbtabraggn metabolic 2000 panel - Serum or PlasmaCOMPREHENSIVE METABOLIC PANEL Lab Routine Antiphospholipid antibody positive Iron deficiency anemiasecondary to blood loss (chronic) Vitamin D deficiency Primary hypercoagulable state (HCC) Expected: 02/18/2025, Expires: 05/20/2025leveland ClinicComment on above:Expected: 02/18/2025, Expires: 05/20/2025Start: 02-16-2025 End: 82-93-6946Ksuqvvc encounter procedureProMedica Rheumatology, A Department of [facility]ertart: 02-12-0605Hujfuhmds for malignant neoplasm of cervixNOMS HealthcareStart: 02-09-2025 End: 74-79-0644FB biophysical profile w non stress testUS biophysical profile w non stress test Imaging Routine Third trimester (HHS-HCC) 28 weeks gestation of (HHS-HCC) Anemia complicating childbirth (HHS-HCC) Anticoagulant long-term use Antiphospholipid antibody positive Blood pressure elevated without history of HTN Coagulation defect, unspecified (HHS-HCC) Expected: 02/09/2025 (Approximate), Expires: 08/10/2025 NOM[facility] HealthcareComment on above:Expected: 02/09/2025 (Approximate), Expires: 08/10/2025Start: 02-09-2025 End: 42-76-9297BO for pregnancyUS OB follow up transabdominal approach Imaging Routine Third trimester (HHS-HCC) 28 weeks gestation of (HHS-HCC) Anemia complicating childbirth (HHS-HCC) Anticoagulant long-term use Antiphospholipid antibody positive Blood pressure elevated without history of HTN Coagulation defect, unspecified (HHS-HCC) Expected: 02/09/2025, Expires: 06/12/2025NOMS HealthcareComment on above:Expected: 02/09/2025, Expires: 06/12/2025Start: 02-09-2025 End: 94-10-9772Znjlnsn encounter zbsfjeomr01/13/2025 10:30 AM EDT Routine SHILOH COLVIN [address] [facility] [place] [address] Wilton Herrmann DO [address] [place] [address] SHILOH HAMILTONtart: 02-06-2025 End: 23-62-8520Fusucuxavpja consultation with yjuiqqp3302/06/2025 2:00 PM EDT Telemedicine Maternal- Medicine at [facility] [address] [place] [address] Mukul Noyola MD [address] [facility], [address] [place] [address] [facility] at [facility]: 02-05-2025 End: 06-07-2913Rxuwayj encounter lihpqefei04/09/2025 1:00 PM EDT Appointment Maternal Medicine [place] [address] [facility] [address] [place] [address] Maternal Medicine CapayStart: 02-01-2025 End: 97-80-3110Dptd complete W/O contrastEcho complete W/O contrast Echocardiography Routine 22 weeks gestation of Antiphospholipid syndrome complicating , antepartum Multigravida of advanced maternal age in second trimester Expected: 02/01/2025 (Approximate), Expires: 01/01/2026 [facility] Work Phone: comment on above:Expected: 02/01/2025 (Approximate), Expires: 01/01/2026Start: 01-19-2025 End: 93-08-7830Cmjmwus encounter zcwwgwcso00/22/2025 9:00 AM EDT Routine NOMJaylan COLVIN [address] [place], [id number] Wilton Herrmann DO [address] [place] [address] SHILOH HAMILTONtart: 01-13-2025 End: 79-93-6875Xeuqjmpvwrcn consultation with ztqghho3801/13/2025 10:00 AM EDT Telemedicine Maternal- Medicine at [facility] [address] [facility] [place] [address] Roxana Mays, PAPilyC [address] [place] [address], [id number] [facility] at [facility]: 01-05-2025 End: 01-59-1274Dvddgnh encounter iyhfgjmil68/08/2025 2:40 PM EDT Routine NOMS Piyush OBGYN [address] [place], [id number] Wilton Herrmann DO [address] [address] NOMS Piyush OBGYNStart: 01-05-2025 End: lead ECGECG 12 lead unit performed ECG Routine Thyroid disease Gestational diabetes mellitus (GDM), antepartum, gestational diabetes method of control unspecified (HHS-HCC) Multigravida of advanced maternal age in second trimester (HHS-HCC) Lightheaded Dizziness Expected: 01/05/2025 (Approximate), Expires:01/05/2026NOMS HealthcareComment on above:Expected: 01/05/2025 (Approximate), Expires: 01/05/2026Start: 01-05-2025 End: 21-69-3835Emcfgxscwlketv 2D completeEchocardiogram 2D complete Echocardiography Routine Thyroid disease Gestational diabetes mellitus (GDM), antepartum, gestational diabetes method of control unspecified (HHS-HCC) Multigravida of advanced maternal age in second trimester (HHS-HCC) Lightheaded Dizziness Expected: 01/05/2025 (Approximate), Expires: 01/05/2027[facility] Work Phone: comment on above:Expected: 01/05/2025 (Approximate), Expires: 01/05/2027Start: 01-01-2025 End: 35-05-6816Ifvozepwudvs consultation with vqctflp6101/01/2025 2:30 PM EDT Telemedicine Maternal [facility] [place] [address] [facility] [address] [place] [address] Mukul Noyola MD [address] [facility], [address] [place] [address] Maternal Medicine CapayStart: 01-01-2025 End: 47-09-0591ON MFM with or without consultUS MFM with [...] on above:Expected: 01/01/2025, Expires: 01/01/2026Start: 01-01-2025 End: 49-36-7383Exjlgfv encounter rsoqspnqq05/04/2025 1:00 PM EDT Appointment [facility] [place] [address] [address] Maternal Medicine CapayStart: 12-29-2024 COVID-19 Vaccine ( season)COVID-19 Vaccine ( season)[facility]: 63-69-9700Tyxmzngps vaccinationCleveland Clinic Hillcrest Hospitaltart: 12-24-2024 End: 64-09-2396NET W Auto Differential panel - BloodCOMPLETE BLOOD COUNT AND DIFFERENTIAL Lab Routine Primary hypercoagulable state (HCC) CVA, old, spee ch/language deficit Cerebral hyponatremia Personal history of TIA (transient ischemic attack) Expected: 12/24/2024, Expires: 03/25/2025[facility] Work Phone: Comment on above:Expected: 12/24/2024, Expires: 03/25/2025Start: 12-24-2024 End: 99-52-5883Isjdpxsyq (Vitamin B12) [Mass/volume] in Serum or PlasmaVITAMIN B12 Lab Routine Primary hypercoagulable state (HCC) CVA, old, speech/language deficit Cerebral hyponatremia Personal history of TIA (transient ischemic attack) Expected: 12/24/2024, Expires: 03/25/2025[facility] ClinicComment on above:Expected: 12/24/2024, Expires: 03/25/2025Start: 12-24-2024 End: 60-07-9160Feqteldpezgah metabolic 2000 panel - Serum or PlasmaCOMPREHENSIVE METABOLIC PANEL Lab Routine Primary hypercoagulable state (HCC) CVA, old, speech/language deficit Cerebral hyponatremia Personal history of TIA (transient ischemic attack) Expected: 12/24/2024, Expires: 03/25/2025[facility] Comment on above:Expected: 12/24/2024, Expires: 03/25/2025Start: 12-24-2024 End: 17-46-8179Tmkqxpwp [Mass/volume] in Serum or PlasmaFERRITIN Lab Routine Primary hypercoagulable state (HCC) CVA, old, speech/language deficit Cerebral hyponatremia Personal history of TIA (transient ischemic attack) Expected: 12/24/2024, Expires: 03/25/2025[facility] ClinicComment on above:Expected: 12/24/2024, Expires: 03/25/2025Start: 12-24-2024 End: 03-84-4576Vubl and Iron binding capacity panel - Serum or PlasmaIRON AND TIBC Lab Routine Primary hypercoagulable state (HCC) CVA, old, speech/language deficit Cerebral hyponatremia Personal history of TIA (transient ischemic attack) Expected: 12/24/2024, Expires: 03/25/2025leveland ClinicComment on above:Expected: 12/24/2024, Expires: 03/25/2025Start: 12-23-2024 End: 206430-csxwrkdhdlgpkg D3 [Mass/volume] in Serum or PlasmaVITAMIN D 25 HYDROXY Lab Routine 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) Vitamin D deficiency Expected: 12/23/2024, Expires: 03/24/2025[facility] Work Phone: Comment on above:Expected: 12/23/2024, Expires: 03/24/2025Start: 12-22-2024 End: 32-69-0667Vvefbf-up dawgorckg18/25/2025 1:30 PM EDT Visit (SP) Office Hematology/Oncology [address] [place] [phone] Katherine Negrete HOGSHEAD WEIGHER.RAND BUTTING MACHINE OPERATOR [address] [place] [address] 8 week follow up labHematology/OncologyComment on above:8 week follow up labStart: 12-22-2024 End: 50-60-9581Ltegjcv encounter ddujluusu53/25/2025 1:15 PM EDT Office Visit [place] [facility] [address] [place], [place] [address] [address] 8 week follow up labNortFormerly [facility] LaboratoryComment on above:8 week follow up labStart: 12-17-2024 End: 65-10-2356Wjyxdoqukfja consultation with gxxfoue0312/17/2024 1:30 PM EDT Telemedicine Maternal- Medicine at [facility] [address] [place] [address] Alisa Saba, HOGSHEAD WEIGHER-RAND BUTTING MACHINE OPERATOR [address] [place] [address] [facility]: 12-11-2024 End: 67-48-5312Vdxqoer encounter klbwveyun73/14/2025 9:10 AM EDT Routine NOMS Piyush COLVIN [address] [place], [id number] Wilton Herrmann DO [address] [place] [address] NOMS Piyush ROBBGYNStart: 12-03-2024 End: 11-39-7302Ndhbsayabawu consultation with ektuzay8112/03/2024 2:00 PM EDT Telemedicine Maternal- Medicine at [facility] [address] [place] [address] Alisa Saba, VICTOR HUGO-RAND BUTTING MACHINE OPERATOR [address] [place] [address] [facility]: 11-20-2024 End: 26-98-7017Klpag fetoprotein, maternalAlpha fetoprotein, maternal Lab Routine Second trimester ([facility]) Expected: 11/20/2024 (Approximate), Expires: 01/21/2025NOM[facility] HealthcareComment on above:Expected: 11/20/2024 (Approximate), Expires: 01/21/2025Start: 11-20-2024 End: 37-08-3029Zctlzdx encounter fpbazizwo99/24/2025 10:10 AM EDT Routine NOMS BCP OB [address] [facility] [place] [address] Wilton Herrmann, DO [address] [place] [address] NOMS BCP OBStart: 11-19-2024 End: 58-96-9922efkhtjeswt14/23/2025 9:30 AM EDT Support Visit Maternal- Medicine at [facility] [address] [place] [address] Lorena Enciso, RN [address] [facility], [address] [place] [address], [place] [address] Stephanie Quiros LD Fischer, Kelli, JERONIMO [address] [facility] [place], [address] [place] [address] [facility]: 11-12-2024 End: 17-87-9717RP MFM with or without consultUS MFM with or without consult Imaging Routine Gestational diabetes mellitus (GDM), antepartum, gestational diabetes method of control unspecified Expected: 11/12/2024 (Approximate), Expires: 10/13/2025[facility] Work Phone: comment on above:Expected: 11/12/2024 (Approximate), Expires: 10/13/2025Start: 10-30-2024 End: 87-19-6268Cnrycgt encounter qhjzjgatp93/03/2025 10:40 AM EDT Routine NOMS BCP OB [address] [place] [address] Wilton Herrmann, DO [address] [place] [address] NOMS BCP OBStart: 10-30-2024 End: 15-12-2783Uywjxeo encounter moqbswmjm68/03/2025 9:30 AM EDT Routine NOMS BCP OB [address] [place] [address] Wilton Herrmann, DO [address] [place] [address] ArrivedNOMS BCP OBComment on above: ArrivedStart: 10-28-2024 End: 73-92-9118Wlzoyi-up lnazivswy21/01/2025 2:30 PM EDT Visit (SP) Office Hematology/Oncology [address] [place], [place] [phone] Katherine Negrete, HOGSHEAD WEIGHER.RAND BUTTING MACHINE OPERATOR [address] [place] [address] 3 month follow upHematology/OncologyComment on above:3 month follow upStart: 10-28-2024 End: 71-69-1033Vsdksws encounter /01/2025 2:15 PM EDT Office Visit [place] [facility] [address] [place] [address] labs - patient prefers to come same dayNortPenn State Health [facility] LaboratoryComment on above:labs - patient prefers to come same day Start: 10-27-2024 End: 99-67-7882Deanqxs encounter qyxdusktp40/30/2025 9:20 AM EDT Office Visit [facility] OB [address] [place] [address] Wilton Herrmann, DO [address] [place] [address] [facility] OBStart: 10-20-2024 End: 48-79-6396Lraznyoiuafb / ancillary services sfqqsutivr29/23/2025 1:00 PM EDT Ancillary Procedure [facility] [address] [place] [address] [facility] OBStart: 10-10-2024 End: 77-13-9601Ealmce-up knbviqzoa05/13/2025 10:40 AM EDT Visit (SP) Office Hematology/Oncology [address] [place] [address] Kristofer Calix MD [address] [place] [address] 3 month follow upHematology/OncologyComment on above:3 month follow upStart: 10-10-2024 End: 83-82-1401Arvdowh encounter rtkqahvxi94/13/2025 10:15 AM EDT Office Visit [place] [place] Laboratory [address] [place] [address] labs - patient prefers to come same dayL[place], [place] LaboratoryComment on above:labs - patient prefers to come same day Start: 10-02-2024 End: 93-69-2066UWF/RhABO/Rh Lab Routine Missed menses , unspecified gestational age Expected: 10/02/2024 (Approximate), Expires: 10/02/2025[facility] HealthcareComment on above:Expected: 10/02/2024 (Approximate), Expires: 10/02/2025Start: 10-02-2024 End: 73-72-4963Rdpxt type and Indirect antibody screen panel - BloodType and screen Lab Routine Missed menses , unspecified gestational age Expected: 10/02/2024 (Approximate), Expires: 10/02/2025[facility] Work Phone: comment on above:Expected: 10/02/2024 (Approximate), Expires: 10/02/2025Start: 10-02-2024 End: 68-77-2263Pjjjs of abuse panel - Urine by Screen methodRapid drug screen, urine Lab Routine , unspecified gestational age Encounter for supervision of normal first in first trimester Expected: 10/02/2024 (Approximate), Expires: 10/02/2025[facility] HealthcareComment on above:Expected: 10/02/2024 (Approximate), Expires: 10/02/2025Start: 10-02-2024 End: 71-79-7919hbtltguxke44/05/2025 1:00 PM EDT Initial [facility] [place] [address] [place] [address] NNHH BCP OBStart: 10-02-2024 End: 10-78-2809Efmjjavpmddf / ancillary services jawyrunhez92/05/2025 12:30 PM EDT Ancillary Procedure [facility] OB [facility] [address] [place], [place] [phone] AXPR BCP OBStart: 08-27-2024 End: 84-87-3000Yetptp-up tncekpdjt71/30/2025 2:00 PM EDT Visit (SP) Office Hematology/Oncology [address] [place] [address] [place] [place], [place] [phone] Kristofer Calix MD [address] [place] [address] 3 month follow upHematology/OncologyComment on above:3 month follow upStart: 08-27-2024 End: 67-74-3974Vlqinpa encounter srtsjehhk35/30/2025 1:45 PM EDT Office Visit [place] [facility] [facility] [address] [place] [phone] labs - patient prefers to come same dayLafourche, [facility] LaboratoryComment on above:labs - patient prefers to come same day Start: 08-26-2024 End: 737658-yjxllabcmkykem D3 [Mass/volume] in Serum or PlasmaVITAMIN D 25 HYDROXY Lab Routine 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 Vitamin D deficiency Expected: 08/26/2024, Expires: 11/25/2024[facility] ClinicComment on above: Expected: 08/26/2024, Expires: 11/25/2024Start: 08-26-2024 End: 11-02-5658XCH W Auto Differential panel - BloodCOMPLETE BLOOD COUNT AND DIFFERENTIAL Lab Routine 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 Vitamin D deficiency Expected: 08/26/2024, Expires: 11/25/2024[facility] Work Phone: Comment on above:Expected: 08/26/2024, Expires: 11/25/2024Start: 08-26-2024 End: 03-54-4999Ivubwalli (Vitamin B12) [Mass/volume] in Serum or PlasmaVITAMIN B12 Lab Routine 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 Vitamin D deficiency Expected: 08/26/2024, Expires: 11/25/2024[facility] ClinicComment on above: Expected: 08/26/2024, Expires: 11/25/2024Start: 08-26-2024 End: 06-12-8748Zzluwiozwjqks metabolic 2000 panel - Serum or PlasmaCOMPREHENSIVE METABOLIC PANEL Lab Routine Antiphospholipid antibody positive Iron deficiency anemiasecondary to blood loss (chronic) Malaise and fatigue Vitamin D deficiency Expected: 08/26/2024, Expires: 11/25/2024[facility] ClinicComment on above: Expected: 08/26/2024, Expires: 11/25/2024Start: 08-26-2024 End: 93-50-8357Rfzlppnh [Mass/volume] in Serum or PlasmaFERRITIN Lab Routine 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) Malaise and fatigue Vitamin D deficiency Expected: 08/26/2024, Expires: 11/25/2024[facility] ClinicComment on above:Expected: 08/26/2024, Expires: 11/25/2024Start: 08-26-2024 End: 92-03-4607Caar and Iron binding capacity panel - Serum or PlasmaIRON AND TIBC Lab Routine 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 Vitamin D deficiency Expected: 08/26/2024, Expires: 11/25/2024[facility] ClinicComment on above: Expected: 08/26/2024, Expires: 11/25/2024Start: 08-26-2024 End: 26-57-8236Danpmdflcvs [Units/volume] in Serum or PlasmaTHYROID STIMULATING HORMONE Lab Routine Antiphospholipid antibody positive 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) Malaise and fatigue Vitamin D deficiency Expected: 08/26/2024, Expires: 11/25/2024[facility] ClinicComment on above: Expected: 08/26/2024, Expires: 11/25/2024Start: 07-24-2024 End: 52-41-6298YizzelxogrokGaydiqiusymz Lab Routine Irregular menstrual cycle Expected: 07/24/2024 (Approximate), Expires: 07/24/2025[facility] Work Phone: comment on above:Expected: 07/24/2024 (Approximate), Expires: 07/24/2025Start: 24-82-0174CBvZ,Tdap and Td Vaccines (2 - Td or Tdap) DTaP,Tdap and Td Vaccines (2 - Td or Tdap)[facility] HospitalAcacia Interactive SystemStart: 27-74-9358RQkN/Tdap/Td vaccine (2 - Td or Tdap)DTaP/Tdap/Td vaccine (2 - Td or Tdap)[facility]ENTERStart: 63-86-2024Huhmd microalbumin profile [facility] Hospitaltart: 06-23-2024 End: 83-69-1187AW PelvisUS Pelvis w/ TV Imaging Routine Vaginal bleeding Vaginal discharge Pelvic pain in female Expected: 06/23/2024, Expires: 06/23/2025NOM[facility] HealthcareComment on above:Expected: 06/23/2024, Expires: 06/23/2025Start: 06-02-2024 End: 61-98-3804Muggveh encounter kwoiddtaa20/03/2025 11:20 AM EST Office Visit [facility] [address] [place] [phone] Wilton Herrmann, [address] [place] [address] [facility] BCP OBStart: 05-21-2024 End: 95-63-0479Nmiknv-up kfcscytex42/22/2025 2:20 PM EST Visit (SP) Office Hematology/Oncology [address] [place], [place] [phone] Kristofer Calix MD [address] [place] [address] 3 month follow up with labHematology/OncologyComment on above:3 month follow up with labStart: 05-21-2024 End: 48-09-8063Ncnexdx encounter vthjsngqy76/22/2025 2:00 PM EST Office Visit [place] [address] [place] [address] 3 month follow up with labNortFormerly [facility] LaboratoryComment on above:3 month follow up with labStart: 05-06-2024 End: 67-89-7585YJ for pregnancyNOMS Healthcare Work Phone: comment on above:Expected: 05/06/2024, Expires: 05/06/2025Start: 05-06-2024 End: 99-64-0989Warlysn encounter wplwiroqw80/07/2025 1:50 PM EST Routine [facility] [address] [place] [phone] Wilton Herrmann [address] [place] [address] [facility] BCP OBStart: 04-09-2024 End: 01-18-1024Vrnbyx-up encounterHematology/OncologyComment on above:3 month follow up with labStart: 04-09-2024 End: 71-57-1432Dsujjpr encounter procedureLafourche, St[facility] LaboratoryComment on above:3 month follow up with labStart: 04-04-2024 End: 91-71-6013UKH/RhABO/Rh Lab Routine Missed menses , unspecified gestational age Expected: 04/04/2024 (Approximate), Expires: 04/04/2025[facility] HealthcareComment on above:Expected: 04/04/2024 (Approximate), Expires: 04/04/2025Start: 04-04-2024 End: 91-53-6071Llxkc type and Indirect antibody screen panel - BloodType and screen Lab Routine Missed menses , unspecified gestational age Expected: 04/04/2024 (Approximate), Expires: 04/04/2025[facility] Work Phone: comment on above:Expected: 04/04/2024 (Approximate), Expires: 04/04/2025Start: 04-04-2024 End: 85-94-4150Ylmoq of abuse panel - Urine by Screen methodRapid drug screen, urine Lab Routine , unspecified gestational age Encounter for supervision of normal first in first trimester Expected: 04/04/2024 (Approximate), Expires: 04/04/2025[facility] HealthcareComment on above:Expected: 04/04/2024 (Approximate), Expires: 04/04/2025Start: 04-04-2024 End: 83-78-7492RO Pelvis transvaginalUS OB transvaginal Imaging Routine Missed menses Expected: 04/04/2024 (Approximate), Expires: 04/04/2025[facility] Healthcare Comment on above:Expected: 04/04/2024 (Approximate), Expires: 04/04/2025Start: 04-02-2024 End: 119722-aogbcdkjdldscb D3 [Mass/volume] in Serum or PlasmaVITAMIN D 25 HYDROXY Lab Routine Iron deficiency anemia secondary to blood loss (chronic) Vitamin Ddeficiency Malaise and fatigue Expected: 04/02/2024 (Approximate), Expires: 07/02/2024[facility] ClinicComment on above:Expected: 04/02/2024 (Approximate), Expires: 07/02/2024Start: 04-02-2024 End: 56-18-9891QDY W Auto Differential panel - BloodCOMPLETE BLOOD COUNT AND DIFFERENTIAL Lab Routine Iron deficiency anemia secondary to blood loss (ch ronic) Vitamin D deficiency Malaise and fatigue Expected: 04/02/2024 (Approximate), Expires: 01/01/2025[facility] ClinicComment on above:Expected: 04/02/2024 (Approximate), Expires: 01/01/2025Start: 04-02-2024 End: 26-89-7827Dlwklpczm (Vitamin B12) [Mass/volume] in Serum or PlasmaVITAMIN B12 Lab Routine Iron deficiency anemia secondary to blood loss (chronic) Vitamin D deficiency Malaise and fatigue Expected: 04/02/2024 (Approximate), Expires: 01/01/2025[facility] ClinicComment on above:Expected: 04/02/2024 (Approximate), Expires: 01/01/2025Start: 04-02-2024 End: 98-69-8709Bsrvmfmrzdqnc metabolic 2000 panel - Serum or PlasmaCOMPREHENSIVE METABOLIC PANEL Lab Routine Iron deficiency anemia secondary to blood loss (chronic) Vitamin D deficiency Malaise and fatigue Expected: 04/02/2024 (Approximate), Expires: 01/01/2025[facility] ClinicComment on above:Expected: 04/02/2024 (Approximate), Expires: 01/01/2025Start: 04-02-2024 End: 69-99-2566Avcijqvx [Mass/volume] in Serum or PlasmaFERRITIN Lab Routine Iron deficiency anemia secondary to blood loss (chronic) Vitamin D deficiency M alaise and fatigue Expected: 04/02/2024 (Approximate), Expires: 01/01/2025 [facility] HospitalComment on above:Expected: 04/02/2024 (Approximate), Expires: 01/01/2025Start: 04-02-2024 End: 29-46-1459Xyjzyg [Mass/volume] in Serum or PlasmaFOLATE, SERUM Lab Routine Iron deficiency anemia secondary to blood loss (chronic) Vitamin D deficiency Malaise and fatigue Expected: 04/02/2024 (Approximate), Expires: 01/01/2025 [facility] HospitalComment on above:Expected: 04/02/2024 (Approximate), Expires: 01/01/2025Start: 04-02-2024 End: 13-03-0756Lsue and Iron binding capacity panel - Serum or PlasmaIRON AND TIBC Lab Routine Iron deficiency anemia secondary to blood loss (chronic) Vitamin D deficiency Malaise and fatigue Expected: 04/02/2024 (Approximate), Expires: 01/01/2025[facility] HospitalComment on above:Expected: 04/02/2024 (Approximate), Expires: 01/01/2025Start: 04-02-2024 End: 70-53-2195Dryvrdprtdp [Units/volume] in Serum or PlasmaTHYROID STIMULATING HORMONE Lab Routine Iron deficiency anemia secondary to blood loss (chronic) Vit vogel D deficiency Malaise and fatigue Expected: 04/02/2024 (Approximate), Expires: 07/02/2024[facility] Work Phone: Comment on above:Expected: 04/02/2024 (Approximate), Expires: 07/02/2024Start: 01-05-2024 End: 85-39-7308PNY W Auto Differential panel - BloodCOMPLETE BLOOD COUNT AND DIFFERENTIAL Lab Routine Iron deficiency anemia secondary to blood loss (ch ronic) Vitamin D deficiency Malaise and fatigue Expected: 01/05/2024 (Approximate), Expires: 01/01/2025[facility] ClinicComment on above:Expected: 01/05/2024 (Approximate), Expires: 01/01/2025Start: 01-05-2024 End: 16-70-4006Smmsqlyfinjxa metabolic 2000 panel - Serum or PlasmaCOMPREHENSIVE METABOLIC PANEL Lab Routine Iron deficiency anemia secondary to blood loss (chronic) Vitamin D deficiency Malaise and fatigue Expected: 01/05/2024 (Approximate), Expires: 5[facility] ClinicComment on above:Expected: 01/05/2024 (Approximate), Expires: 01/01/2025Start: 01-02-2024 End: 74-40-7619Kcjmel-up /04/2024 1:45 PM EDT Visit (SP) Office Hematology/Oncology [address] [place], [place] [phone] Kristofer Calix MD [address] [place] [address] 8 WEEK FOLLOW UPHematology/OncologyComment on above:8 WEEK FOLLOW UPStart: 01-02-2024 End: 51-23-0872Wusrils encounter labvzhxfa20/04/2024 1:30 PM EDT Office Visit [place] [facility] [facility] [address] [place] [address] 8 WEEK FOLLOW UPNortFormerly [facility] LaboratoryComment on above:8 WEEK FOLLOW UPStart: 44-73-7956Kfgpv-19 Vaccine ( season)Covid-19 Vaccine ( season)[facility] Hospitalt[facility]: 85-19-8003Jfasy-19 Vaccine ( season)Covid-19 Vaccine ( season)[facility] Hospital[facility]: 32-17-3518Ttonnhzuj vaccinationHolmes [facility] Start: 11-29-2023 End: 43-33-2752tjaudawamh48/01/2024 1:30 PM EDT Infusion Center Hematology/Oncology [address] [place] [address] VENOFER 300Hematology/OncologyComment on above:VENOFER 300Start: 11-22-2023 End: 42-46-6824tagjlzmind46/25/2024 1:30 PM EDT Infusion Center Hematology/Oncology [address] [place] [address] VENOFER 300Hematology/OncologyComment on above:VENOFER 300Start: 11-15-2023 End: 71-05-7953tavuofoluq34/18/2024 1:30 PM EDT Infusion Center Hematology/Oncology [address] [place] [address] [place] [address] VENOFER 300Hematology/OncologyComment on above:VENOFER 300Start: 09-13-2023 End: 99-54-724704667479-qpbfrhtbltprdk D3 [Mass/volume] in Serum or PlasmaVITAMIN D 25 HYDROXY Lab Routine Vitamin D deficiency 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) Expected: 09/13/2023 (Approximate), Expires: 12/13/2023[facility] Work Phone: Comment on above:Expected: 09/13/2023 (Approximate), Expires: 12/13/2023Start: 09-13-2023 End: 34-27-3192Cjldetl.ionized [Moles/volume] in BloodCALCIUM IONIZED BLOOD Lab Routine Vitamin D deficiency 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) Expected: 09/13/2023 (Approximate), Expires: 12/13/2023 [facility] Work Phone: Comment on above:Expected: 09/13/2023 (Approximate), Expires: 12/13/2023Start: 09-13-2023 End: 16-30-9904VOY W Auto Differential panel - BloodCBC + DIFF Lab Routine Vitamin D deficiency 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) Expected: 09/13/2023 (Approximate), Expires: 06/15/2024[facility] Work Phone: Comment on above:Expected: 09/13/2023 (Approximate), Expires: 06/15/2024Start: 09-13-2023 End: 22-03-5639Hifbwdhty (Vitamin B12) [Mass/volume] in Serum or PlasmaVITAMIN B12 BLOOD Lab Routine Vitamin D deficiency 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) Expected: 09/13/2023 (Approximate), Expires: 06/15/2024[facility] Work Phone: Comment on above:Expected: 09/13/2023 (Approximate), Expires: 06/15/2024Start: 09-13-2023 End: 79-65-6318Xbsypgytqdqia metabolic 2000 panel - Serum or PlasmaCOMP METABOLIC PANEL Lab Routine Vitamin D deficiency 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) Expected: 09/13/2023 (Approximate), Expires: 06/15/2024[facility] Work Phone: Comment on above:Expected: 09/13/2023 (Approximate), Expires: 06/15/2024Start: 09-13-2023 End: 68-38-7518Unfbohcr [Mass/volume] in Serum or PlasmaFERRITIN BLD Lab Routine Vitamin D deficiency 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) Expected: 09/13/2023 (Approximate), Expires: 06/15/2024[facility] Work Phone: Comment on above:Expected: 09/13/2023 (Approximate), Expires: 06/15/2024Start: 09-13-2023 End: 46-40-0928Nafcaf [Mass/volume] in Serum or PlasmaFOLATE SERUM Lab Routine Vitamin D deficiency 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) Expected: 09/13/2023 (Approximate), Expires: 06/15/2024[facility] Work Phone: Comment on above:Expected: 09/13/2023 (Approximate), Expires: 06/15/2024Start: 09-13-2023 End: 59-59-5567Dvxk and Iron binding capacity panel - Serum or PlasmaIRON + TIBC Lab Routine Vitamin D deficiency 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) Expected: 09/13/2023 (Approximate), Expires: 06/15/2024 [facility] Work Phone: Comment on above:Expected: 09/13/2023 (Approximate), Expires: 06/15/2024Start: 09-13-2023 End: 25-88-4376Usolgyqyrw.intact [Mass/volume] in Serum or PlasmaPTH INTACT BLD Lab Routine Vitamin D deficiency 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) Expected: 09/13/2023 (Approximate), Expires: 12/13/2023 [facility] Work Phone: Comment on above:Expected: 09/13/2023 (Approximate), Expires: 12/13/2023Start: 06-15-2023 End: 413989-xdmetrwaqvejkj D3 [Mass/volume] in Serum or PlasmaVITAMIN D 25 HYDROXY Lab Routine Vitamin D deficiency Expected: 06/15/2023 (Approximate), Expires: 09/14/2023[facility] Work Phone: Comment on above:Expected: 06/15/2023 (Approximate), Expires: 09/14/2023Start: 06-15-2023 End: 59-58-7551Bkoequw.ionized [Moles/volume] in BloodCALCIUM IONIZED BLOOD Lab Routine Vitamin D deficiency Hypercalcemia Expected: 06/15/2023 (Approximate), Expires: 09/14/2023[facility] Work Phone: Comment on above:Expected: 06/15/2023 (Approximate), Expires: 09/14/2023Start: 06-15-2023 End: 07-12-3832RUR W Auto Differential panel - BloodCBC + DIFF Lab Routine Iron deficiency anemia secondary to blood loss (chronic) Expected: 06/15/2023 (Approximate), Expires: 06/12/2024[facility] Work Phone: Comment on above:Expected: 06/15/2023 (Approximate), Expires: 06/12/2024Start: 06-15-2023 End: 05-39-9096Fpbbwvxml (Vitamin B12) [Mass/volume] in Serum or PlasmaVITAMIN B12 BLOOD Lab Routine Iron deficiency anemia secondary to blood loss (chronic) Expected: 06/15/2023 (Approximate), Expires: 06/12/2024[facility] Work Phone: Comment on above:Expected: 06/15/2023 (Approximate), Expires: 06/12/2024Start: 06-15-2023 End: 03-56-2141Wwxnvovqqafwv metabolic 2000 panel - Serum or PlasmaCOMP METABOLIC PANEL Lab Routine Iron deficiency anemia secondary to blood loss (chronic) Expected:06/15/2023 (Approximate), Expires: 06/12/2024[facility] Work Phone: Comment on above:Expected: 06/15/2023 (Approximate), Expires: 06/12/2024Start: 06-15-2023 End: 67-11-0448Drzjjjfb [Mass/volume] in Serum or PlasmaFERRITIN BLD Lab Routine Iron deficiency anemia secondary to blood loss (chronic) Expected: 06/15/2023 (Approximate), Expires: 06/12/2024[facility] Work Phone: Comment on above:Expected: 06/15/2023 (Approximate), Expires: 06/12/2024Start: 06-15-2023 End: 79-11-5499Hnlnob [Mass/volume] in Serum or PlasmaFOLATE SERUM Lab Routine Iron deficiency anemia secondary to blood loss (chronic) Expected: 06/15/2023 (Approximate), Expires: 06/12/2024[facility] Work Phone: Comment on above:Expected: 06/15/2023 (Approximate), Expires: 06/12/2024Start: 06-15-2023 End: 26-18-9809Kszz and Iron binding capacity panel - Serum or PlasmaIRON + TIBC Lab Routine Iron deficiency anemia secondary to blood loss (chronic) Expected: 06/15/2023 (Approximate), Expires: 06/12/2024[facility] Work Phone: Comment on above:Expected: 06/15/2023 (Approximate), Expires: 06/12/2024Start: 06-15-2023 End: 91-09-6236WED, INTACT (WITHOUT CALCIUM)PTH, INTACT (WITHOUT CALCIUM) Lab Routine Vitamin D deficiency Hypercalcemia Expected: 06/15/2023 (Approximate), Expires: 09/14/2023[facility] Work Phone: Comment on above:Expected: 06/15/2023 (Approximate), Expires: 09/14/2023Start: 06-15-2023 End: 89-45-9123Uuodfbuunbh [Units/volume] in Serum or PlasmaTSH BLD Lab Routine Malaise and fatigue Expected: 06/15/2023 (Approximate), Expires: 09/14/2023 [facility] Work Phone: Comment on above:Expected: 06/15/2023 (Approximate), Expires: 09/14/2023Start: 06-14-2023 End: 792038-ozrhbqbhcnakbr D3 [Mass/volume] in Serum or PlasmaVITAMIN D 25 HYDROXY Lab Routine Hypercalcemia Vitamin D deficiency Expected: 06/14/2023 (Approximate), Expires: 09/13/2023[facility] Work Phone: Comment on above:Expected: 06/14/2023 (Approximate), Expires: 09/13/2023Start: 06-14-2023 End: 51-80-6278Zrqsvld.ionized [Moles/volume] in BloodCALCIUM IONIZED BLOOD Lab Routine Hypercalcemia Vitamin D deficiency Expected: 06/14/2023 (Approximate), Expires: 09/13/2023[facility] Work Phone: Comment on above:Expected: 06/14/2023 (Approximate), Expires: 09/13/2023Start: 06-14-2023 End: 99-85-8517DKJ, INTACT (WITHOUT CALCIUM)PTH, INTACT (WITHOUT CALCIUM) Lab Routine Hypercalcemia Vitamin D deficiency Expected: 06/14/2023 (Approximate), Expires: 09/13/2023[facility] Work Phone: Comment on above:Expected: 06/14/2023 (Approximate), Expires: 09/13/2023Start: 06-14-2023 End: 40-89-5152Lwtmmpdmyrg [Units/volume] in Serum or PlasmaTSH BLD Lab Routine Hypercalcemia Malaise and fatigue Expected: 06/14/2023 (Approximate), Expires: [address] [place] [address] Work Phone: Comment on above:Expected: 06/14/2023 (Approximate), Expires: 09/13/2023Start: 05-14-2023 End: 88-67-5633ZTY W Auto Differential panel - BloodCBC + DIFF Lab Routine Primary hypercoagulable state (HCC) Iron deficiency anemia secondary to blood loss (chronic) Vitamin D deficiency CVA, old, 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) Expected: 05/14/2023 (Approximate), Expires: 03/19/2024[facility] Work Phone: Comment on above:Expected: 05/14/2023 (Approximate), Expires: 03/19/2024Start: 05-14-2023 End: 51-33-0152Tjeyxmzfr (Vitamin B12) [Mass/volume] in Serum or PlasmaVITAMIN B12 BLOOD Lab Routine Primary hypercoagulable state (HCC) Iron deficiency anemia secondary to blood loss (chronic) Vitamin D deficiency CVA, old, 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) Expected: 05/14/2023 (Approximate), Expires: 03/19/2024[facility] Work Phone: Comment on above:Expected: 05/14/2023 (Approximate), Expires: 03/19/2024Start: 05-14-2023 End: 93-26-7682Vgvhwssxfdjvf metabolic 2000 panel - Serum or PlasmaCOMP METABOLIC PANEL Lab Routine Primary hypercoagulable state (HCC) Iron deficiency anemia secondary to blood loss (chronic) Vitamin D deficiency CVA, old, 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) Expected: 05/14/2023 (Approximate), Expires: 03/19/2024[facility] Work Phone: Comment on above:Expected: 05/14/2023 (Approximate), Expires: 03/19/2024Start: 05-14-2023 End: 30-49-1915Pciompod [Mass/volume] in Serum or PlasmaFERRITIN BLD Lab Routine Primary hypercoagulable state (HCC) Iron deficiency anemia secondary to blood loss (chronic) Vitamin D deficiency CVA, old, 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) Expected: 05/14/2023 (Approximate), Expires: 03/19/2024[facility] Work Phone: Comment on above:Expected: 05/14/2023 (Approximate), Expires: 03/19/2024Start: 05-14-2023 End: 65-11-2627Xyaxsf [Mass/volume] in Serum or PlasmaFOLATE SERUM Lab Routine Primary hypercoagulable state (HCC) Iron deficiency anemia secondary to blood loss (chronic) Vitamin D deficiency CVA, old, 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) Expected: 05/14/2023 (Approximate), Expires: 03/19/2024[facility] Work Phone: Comment on above:Expected: 05/14/2023 (Approximate), Expires: 03/19/2024Start: 05-14-2023 End: 54-29-2234Mhdu and Iron binding capacity panel - Serum or PlasmaIRON + TIBC Lab Routine Primary hypercoagulable state (HCC) Iron deficiency anemia secondary to blood loss (chronic) Vitamin D deficiency CVA, old, 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) Expected: 05/14/2023 (Approximate), Expires: 03/19/2024[facility] Work Phone: Comment on above:Expected: 05/14/2023 (Approximate), Expires: 03/19/2024Start: 32-09-9900Fyvronqhei Health ScreeningBehavioral Health ScreeningCleveland Clinic Hillcrest Hospitaltart: 80-19-1174Btoeofquff AssessmentDepression AssessmentCleveland Clinic Hillcrest Hospitaltart: 02-16-2023 End: 989421-dvatoswjibisgf D3 [Mass/volume] in Serum or PlasmaVITAMIN D 25 HYDROXY Lab Routine Primary hypercoagulable state (HCC) Iron deficiency anemia secondary to blood loss (chronic) Vitamin D deficiency Expected: 02/16/2023 (Approximate), Expires: 04/18/2023[facility] Work Phone: Comment on above:Expected: 02/16/2023 (Approximate), Expires: 04/18/2023Start: 02-16-2023 End: 09-69-5363ZVU W Auto Differential panel - BloodCBC + DIFF Lab Routine Primary hypercoagulable state (HCC) Iron deficiency anemia secondary to blood loss (chronic) Expected: 02/16/2023 (Approximate), Expires: 12/23/2023[facility] Work Phone: Comment on above:Expected: 02/16/2023 (Approximate), Expires: 12/23/2023Start: 02-16-2023 End: 06-07-8571Wbzhwgbww (Vitamin B12) [Mass/volume] in Serum or PlasmaVITAMIN B12 BLOOD Lab Routine Primary hypercoagulable state (HCC) Iron deficiency anemia secondary to blood loss (chronic) Expected: 02/16/2023 (Approximate), Expires: 12/23/2023[facility] Work Phone: Comment on above:Expected: 02/16/2023 (Approximate), Expires: 12/23/2023Start: 02-16-2023 End: 38-64-3164Qgffflgojshwp metabolic 2000 panel - Serum or PlasmaCOMP METABOLIC PANEL Lab Routine Primary hypercoagulable state (HCC) Iron deficiency anemia secondary to blood loss (chronic) Expected: 02/16/2023 (Approximate), Expires: 12/23/2023[facility] Work Phone: Comment on above:Expected: 02/16/2023 (Approximate), Expires: 12/23/2023Start: 02-16-2023 End: 16-20-9606Kiywucwp [Mass/volume] in Serum or PlasmaFERRITIN BLD Lab Routine Primary hypercoagulable state (HCC) Iron deficiency anemia secondary to blood loss (chronic) Expected: 02/16/2023 (Approximate), Expires: 12/23/2023[facility] Work Phone: Comment on above:Expected: 02/16/2023 (Approximate), Expires: 12/23/2023Start: 02-16-2023 End: 63-95-5266Rfsmgk [Mass/volume] in Serum or PlasmaFOLATE SERUM Lab Routine Primary hypercoagulable state (HCC) Iron deficiency anemia secondary to blood loss (chronic) Expected: 02/16/2023 (Approximate), Expires: 12/23/2023[facility] Work Phone: Comment on above:Expected: 02/16/2023 (Approximate), Expires: 12/23/2023Start: 02-16-2023 End: 27-98-4590Jvbb and Iron binding capacity panel - Serum or PlasmaIRON + TIBC Lab Routine Primary hypercoagulable state (HCC) Iron deficiency anemia secondary to blood loss (chronic) Expected: 02/16/2023 (Approximate), Expires: 12/23/2023[facility] Work Phone: Comment on above:Expected: 02/16/2023 (Approximate), Expires: 12/23/2023Start: 97-93-1234Ffcke-19 Vaccine ()Covid- 19 Vaccine ()[facility]: 31-06-9436Mpvccitcu vaccinationC[facility] Clinic Hillcre[facility]: 56-18-9930FFD TESTINGPAP TESTINGCleveland Clinic Hillcre[facility] Hospitaltart: 44-42-3986Vrxoghoef for malignant neoplasm of cervixPap Testing [facility]: 11-28-2022 End: 79-02-1512XJK W Auto Differential panel - BloodCBC + DIFF Lab Routine Primary hypercoagulable state (HCC) CVA, old, speech/language deficit Cerebral hyponatremia Expected: 11/28/2022 (Approximate), Expires: 10/04/2023[facility] Work Phone: Comment on above:Expected: 11/28/2022 (Approximate), Expires: 10/04/2023Start: 11-28-2022 End: 40-73-5840Xujtnapov (Vitamin B12) [Mass/volume] in Serum or PlasmaVITAMIN B12 BLOOD Lab Routine Primary hypercoagulable state (HCC) CVA, old, speech/language deficitCerebral hyponatremia Expected: 11/28/2022 (Approximate), Expires: 06/06/[address] [place] [address] Work Phone: Comment on above:Expected: 11/28/2022 (Approximate), Expires: 10/04/2023Start: 11-28-2022 End: 74-36-0750Soasmwbgzyoca metabolic 2000 panel - Serum or PlasmaCOMP METABOLIC PANEL Lab Routine Primary hypercoagulable state (HCC) CVA, old, speech/language deficit Cerebral hyponatremia Expected: 11/28/2022 (Approximate), Expires: [address] [place] [address] Work Phone: Comment on above:Expected: 11/28/2022 (Approximate), Expires: 10/04/2023Start: 11-28-2022 End: 60-00-2053Qqqrlfpu [Mass/volume] in Serum or PlasmaFERRITIN BLD Lab Routine Primary hypercoagulable state (HCC) CVA, old, speech/language deficit Cerebral hyponatremia Expected: 11/28/2022 (Approximate), Expires: 10/04/2023[facility] Work Phone: Comment on above:Expected: 11/28/2022 (Approximate), Expires: 10/04/2023Start: 11-28-2022 End: 14-02-1255Okketx [Mass/volume] in Serum or PlasmaFOLATE SERUM Lab Routine Primary hypercoagulable state (HCC) CVA, old, speech/language deficit Cerebral hyponatremia Expected: 11/28/2022 (Approximate), Expires: 10/04/2023[facility] Work Phone: Comment on above:Expected: 11/28/2022 (Approximate), Expires: 10/04/2023Start: 11-28-2022 End: 12-06-6374Fbvp and Iron binding capacity panel - Serum or PlasmaIRON + TIBC Lab Routine Primary hypercoagulable state (HCC) CVA, old, speech/language deficit Cerebral hyponatremia Expected: 11/28/2022 (Approximate), Expires: [address] [place] [address] Work Phone: Comment on above:Expected: 11/28/2022 (Approximate), Expires: 10/04/2023Start: 09-21-2022 End: 91-74-1309OFQ W Auto Differential panel - BloodCBC + DIFF Lab Routine Primary hypercoagulable state (HCC) 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, old, speech/language deficit Expected: 09/21/2022 (Approximate), Expires: 07/28/2023[facility] Work Phone: Comment on above:Expected: 09/21/2022 (Approximate), Expires: 07/28/2023Start: 09-21-2022 End: 58-53-8076Gjxuofoll (Vitamin B12) [Mass/volume] in Serum or PlasmaVITAMIN B12 BLOOD Lab Routine Primary hypercoagulable state (HCC) 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, old, speech/language deficit Expected: 09/21/2022 (Approximate), Expires: 07/28/2023[facility] Work Phone: Comment on above:Expected: 09/21/2022 (Approximate), Expires: 07/28/2023Start: 09-21-2022 End: 65-36-4219Mxinzmpmpbsvl metabolic 2000 panel - Serum or PlasmaCOMP METABOLIC PANEL Lab Routine Primary hypercoagulable state (HCC) 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, old, speech/language deficit Expected: 09/21/2022 (Approximate), Expires: 07/28/2023[facility] Work Phone: Comment on above:Expected: 09/21/2022 (Approximate), Expires: 07/28/2023Start: 09-21-2022 End: 21-17-9430Efhzefev [Mass/volume] in Serum or PlasmaFERRITIN BLD Lab Routine Primary hypercoagulable state (HCC) 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, old, speech/language deficit Expected: 09/21/2022 (Approximate), Expires: 07/28/2023[facility] Work Phone: Comment on above:Expected: 09/21/2022 (Approximate), Expires: 07/28/2023Start: 09-21-2022 End: 68-10-4756Vhuwrv [Mass/volume] in Serum or PlasmaFOLATE SERUM Lab Routine Primary hypercoagulable state (HCC) 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, old, speech/language deficit Expected: 09/21/2022 (Approximate), Expires: 07/28/2023[facility] Work Phone: Comment on above:Expected: 09/21/2022 (Approximate), Expires: 07/28/2023Start: 09-21-2022 End: 52-92-1953Yzsi and Iron binding capacity panel - Serum or PlasmaIRON + TIBC Lab Routine Primary hypercoagulable state (HCC) 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, old, speech/language deficit Expected: 09/21/2022 (Approximate), Expires: 07/28/2023[facility] Work Phone: Comment on above:Expected: 09/21/2022 (Approximate), Expires: 07/28/2023Start: 70-04-1704CSNTNDEOQX ASSESSMENTDEPRESSION ASSESSMENT [facility]: 01-30-2022 End: 22-31-7155Xjeuyevv [Mass/volume] in Serum or PlasmaFERRITIN BLD Lab Routine Anemia, unspecified type Expected: 01/30/2022, Expires: 01/30/2023[facility] Work Phone: Comment on above:Expected: 01/30/2022, Expires: 01/30/2023Start: 01-30-2022 End: 01-13-9722Wcxm and Iron binding capacity panel - Serum or PlasmaIRON + TIBC Lab Routine Anemia, unspecified type Expected: 01/30/2022, Expires: 01/30/2023 [facility] Work Phone: Comment on above:Expected: 01/30/2022, Expires: 01/30/2023Start: 35-58-8564Oqjtijeiq vaccinationC[facility] Clinic Hillcrest Hospitaltart: 12-29-2021 End: 35-17-8459Kjxryng encounter aepwzavjf55/01/2022 [facility] Maternal MedStart: 43-05-2320LFFDBRNCHE ASSESSMENTDEPRESSION ASSESSMENTC[facility] Clinic [facility] Hospitaltart: 02-76-0362Htdjh depression screening assessmentDEPRESSION SCREENINGC[facility] Clinic [facility] Hospitaltart: 12-04-2020 Screening for malignant neoplasm of cervixCervical Cancer ScreeningC[facility] Clinic [facility] Hospitaltart: 77-29-3888Rxqmmkbq screenDiabetes screenCARILION [facility] Start: 89-12-0471VTD TESTINGHPV TESTINGC[facility] Clinic Hill[facility] Hospitaltart: 10-22-2015 Screening for malignant neoplasm of cervixCARILION STONEWALL [facility]ITALStart: 78-91-4536LDH Vaccine (1 - 3-dose SCDM series)HPV Vaccine (1 - 3-dose SCDM series)[facility]: 53-59-8607TQI Vaccines (1 - 3-dose SCDM series)HPV Vaccines (1 - 3-dose SCDM series)[facility]: 05-12-7838Needupjli for malignant neoplasm of cervixPap smearCARILION STONEWALL JACKSON [facility]OSPITALStart: 2004 DTaP,Tdap and Td Vaccines (1 - Tdap)DTaP,Tdap and Td Vaccines (1 - Tdap) [facility]: 08-74-2876Tlzemqofy B Vaccine (1 of 3 - 19+ 3-dose series)Hepatitis B Vaccine (1 of 3 - 19+ 3-dose series)[facility]: 22-88-8255Ambimahut B Vaccines (1 of 3 - 19+ 3-dose series)Hepatitis B Vaccines (1 of 3 - 19+ 3-dose series)[facility] HealthcareStart: 05-30-7752Oreia BMI Follow Up PlanAdult BMI Follow Up PlanMaria [facility]ham Healthtart: 28-99-4751Yxxyr BMI ScreeningAdult BMI ScreeningMaria [facility] Healthtart: 30-19-0413Aavotwi ScreeningAnxiety ScreeningCleveland Clinic Hillcrest Hospitaltart: 07-03-5263Uxiubikekb Screening Depression ScreeningC[facility] Clinic Hillcrest Hospitaltart: 85-28-2652ETECPJAUO C SCREENING HEPATITIS C SCREENINGC[facility] Clinic Hillcre[facility] Hospitaltart: 98-01-7748Ktqcsbatv C screeningCARILION STONEWALL [facility]ACKSON [facility]ITALStart: 10-16-9042UDA SCREENINGHIV SCREENINGHol[facility] Start: 55-98-6718WJA screeningHIV ScreeningCleveland Clinic Hillcrest Hospitaltart: 1998 History of varicella vaccinationVaricella Vaccines (1 of 2 - 13+ 2-dose series) [facility]: 96-15-5997Shoepjzqzw ScreenDepression ScreenBON [facility] Hospitalart: 14-81-4875Kuccfgqzhk ScreeningDepression ScreeningProUniversity Hospitals Elyria Medical Centertart: 76-65-2903Qhxjhix ScreeningTobacco ScreeningMaria Parham Healthtart: 87-69-3312UJgB/Tdap/Td Vaccines (1 - Tdap)DTaP/Tdap/Td Vaccines (1 - Tdap)[facility]: 97-82-4679UVOYL-19 VACCINE (#1)COVID-19 VACCINE (#1)[facility]: 02-70-4439FPVWT-19 VACCINE (1)COVID-19 VACCINE (1) [facility]: 18-23-3123NBX Vaccines (1 of 1 - Standard series)MMR Vaccines (1 of 1 - Standard series)[facility]: 98-16-2476Pninzcgfg vaccine (1 of 2 - 2-dose childhood series)Varicella vaccine (1 of 2 - 2-dose childhood series)[facility]: 02-79-5525XEYOO-19 Vaccine (#1) COVID-19 Vaccine (#1)[facility]: 23-42-2997VRPRMKGWP B (1 of 3 - 3-dose series)HEPATITIS B (1 of 3 - 3-dose series)[facility]: 10-59-4292Sfsaxzmtz B Vaccine (1 of 3 - 3-dose series)Hepatitis B Vaccine (1 of 3 - 3-dose series)[facility] End: 30-76-8630Lxaoy Fetoprotein, [facility]aternalB[facility] Work Phone: comment on above:Once for 1 Occurrences starting 11/21/2021 until 11/21/2021 End: 50-45-5593Rtnjcpsvlsc Ab, HEp-2 Substrate, S (NASEEM by IFA)Antinuclear Ab, HEp-2 Substrate, S (NASEEM by IFA) Lab Routine Antiphospholipid syndrome Antiphospholipid syndrome complicating , antepartum History of CVA (cerebrovascular accident) 1 Occurrences starting 02/16/2025 until 02/16/2026 [facility] Work Phone: comment on above:1 Occurrences starting 02/16/2025 until 6Bacteria identified in Urine by CultureUrine culture Microbiology Routine Missed menses Ordered: 04/04/2024[facility] HealthcareComment on above:Ordered: 04/04/2024acteria identified in Urine by CultureUrine culture Microbiology Routine Missed menses Ordered: 10/02/2024[facility] HealthcareComment on above:Ordered: 10/02/2024 End: 60-63-2184GHN W Auto Differential panel - BloodCBC + DIFF Lab Routine Primary hypercoagulable state (HCC) CVA, old, 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[facility]) Every 2 months for 6 Occurrences starting 01/30/2022 until 01/30/2023[facility] Work Phone: Comment on above:Every 2 months for 6 Occurrences starting 01/30/2022 until 3CBC W Auto Differential panel - BloodCBC and differential Lab Routine Missed menses , unspecified gestational age Ordered: 04/04/2024[facility] HealthcareComment on above:Ordered: 4CBC W Auto Differential panel - BloodCBC and differential Lab Routine Missed menses , unspecified gestational age Ordered: 10/02/2024[facility] HealthcareComment on above:Ordered: 10/02/2024BC W Auto Differential panel - BloodCBC and differential Lab Routine 28 weeks gestation of ([facility]) Ordered: 02/09/2025[facility] Work Phone: comment on above:Ordered: 02/09/2025HLAMYDIA TRACHOMATIS (GENITO/STI)CHLAMYDIA TRACHOMATIS (GENITO/STI) Lab Routine Vaginal bleeding Vaginal discharge Ordered: 06/23/2024[facility] HealthcareComment on above: Ordered: 06/23/2024HLAMYDIA TRACHOMATIS (GENITO/STI)CHLAMYDIA TRACHOMATIS (GENITO/STI) Lab Routine Vaginal discharge Ordered: 11/20/2024[facility] Healthcare Comment on above:Ordered: 11/20/2024 End: 90-25-3383Fydivdbiht profile (C3 AND C4)Complement profile (C3 AND C4) Lab Routine Antiphospholipid syndrome Antiphospholipid syndrome complicating , antepartum History of CVA (cerebrovascular accident) 1 Occurrences starting 02/16/2025 until 02/16/2026[facility] SystemComment on above:1 Occurrences starting 02/16/2025 until 02/16/2026 End: 61-28-9007Dwixewcltkzrr metabolic 2000 panel - Serum or PlasmaCOMP METABOLIC PANEL Lab Routine Primary hypercoagulable state (HCC) CVA, old, 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) Every 2 months for 6 Occurrences starting 01/30/2022 until 01/30/2023[facility] Work Phone: Comment on above:Every 2 months for 6 Occurrences starting 01/30/2022 until 01/30/2023 End: 84-66-8489UWG double-stranded (dsDNA) Abs by Crithidia luciliae IFADNA double-stranded (dsDNA) Abs by Crithidia luciliae IFA Lab Routine Antiphospholipid syndrome Antiphospholipid syndrome complicating , antepartum History of CVA (cerebrovascular accident) 1 Occurrences starting 02/16/2025 until 02/16/2026[facility] SystemComment on above:1 Occurrences starting 02/16/2025 until 02/16/2026 End: 48-39-0264FTJ PanelENA Panel Lab Routine Antiphospholipid syndrome Antiphospholipid syndrome complicating , antepartum History of CVA (cerebrovascular accident) 1 Occurrences starting 02/16/2025 until 02/16/2026 [facility] SystemComment on above:1 Occurrences starting 02/16/2025 until 02/16/2026Hemoglobin A1c/Hemoglobin.total in BloodHemoglobin A1c Lab Routine Missed menses , unspecified gestational age Ordered: 04/04/2024[facility] HealthcareComment on above:Ordered: 04/04/2024Hemoglobin A1c/Hemoglobin.total in BloodHemoglobin A1c Lab Routine Missed menses , unspecified gestational age Ordered: 10/02/2024[facility] HealthcareComment on above:Ordered: 10/02/2024Hepatitis B virus surface Ag [Presence] in Serum or Plasma by ImmunoassayHepatitis B surface antigen Lab Routine Missed menses , unspecified gestational age Ordered: 04/04/2024[facility] HealthcareComment on above: Ordered: 04/04/2024Hepatitis B virus surface Ag [Presence] in Serum or Plasma by ImmunoassayHepatitis B surface antigen Lab Routine Missed menses , unspecified gestational age Ordered: 10/02/2024[facility] HealthcareComment on above: Ordered: 10/02/2024Hepatitis C virus Ab [Presence] in Serum or Plasma by ImmunoassayHepatitis C antibody Lab Routine Missed menses , unspecified gestational age Ordered: 04/04/2024[facility] HealthcareComment on above:Ordered: 04/04/2024Hepatitis C virus Ab [Presence] in Serum or Plasma by Immunoassay Hepatitis C antibody Lab Routine Missed menses , unspecified gestational age Ordered: 10/02/2024[facility] HealthcareComment on above:Ordered: 10/02/2024HIV-1/HIV-2 antigen/antibody combination immunoassayHIV-1 and HIV-2 antibodies Lab Routine Missed menses , unspecified gestational age Ordered: 04/04/2024[facility] HealthcareComment on above:Ordered: 04/04/2024 HIV-1/HIV-2 antigen/antibody combination immunoassayHIV-1 and HIV-2 antibodies Lab Routine Missed menses , unspecified gestational age Ordered: 10/02/2024[facility] HealthcareComment on above:Ordered: 10/02/2024Neisseria gonorrhoeae DNA [Presence] in Unspecified specimen by LELO with probe detection Neisseria gonorrhea DNA probe, direct Lab Routine Vaginal bleeding Vaginal discharge Ordered: 06/23/2024[facility] HealthcareComment on above:Ordered: 06/23/2024 Neisseria gonorrhoeae DNA [Presence] in Unspecified specimen by LELO with probe detectionNeisseria gonorrhea DNA probe, direct Lab Routine Vaginal discharge Ordered: 11/20/2024[facility] HealthcareComment on above:Ordered: 11/20/2024Reagin Ab [Presence] in Serum by RPRRPR Lab Routine Missed menses , unspecified gestational age Ordered: 04/04/2024[facility] HealthcareComment on above:Ordered: 4Reagin Ab [Presence] in Serum by RPRRPR Lab Routine Missed menses , unspecified gestational age Ordered: 10/02/2024[facility] HealthcareComment on above:Ordered: 10/02/2024Rubella antibody, IgGRubella antibody, IgG Lab Routine Missed menses , unspecified gestational age Ordered: 04/04/2024 [facility] HealthcareComment on above:Ordered: 04/04/2024ubella antibody, IgGRubella antibody, IgG Lab Routine Missed menses , unspecified gestational age Ordered: 10/02/2024[facility] HealthcareComment on above:Ordered: 10/02/2024 SURESWAB(R) ADVANCED VAGINITIS PLUS, TMASURESWAB(R) ADVANCED VAGINITIS PLUS, TMA Pathology and Cytology Routine Vaginal bleeding Vaginal discharge Ordered: 06/23/2024[facility] Work Phone: comment on above:Ordered: 06/23/2024SURESWAB(R) ADVANCED VAGINITIS PLUS, TMASURESWAB(R) ADVANCED VAGINITIS PLUS, TMA Pathology and Cytology Routine Vaginal discharge Ordered: 11/20/2024[facility] Work Phone: comment on above:Ordered: 11/20/2024Thyrotropin [Units/volume] in Serum or PlasmaTSH Lab Routine Hypothyroidism (acquired) ([facility]) Ordered: 04/04/2024[facility] HealthcareComment on above:Ordered: 04/04/2024 Thyrotropin [Units/volume] in Serum or PlasmaTSH Lab Routine History of thyroid disease Ordered: 06/02/2024[facility] Work Phone: comrlfb on above:Ordered: 06/02/2024Thyrotropin [Units/volume] in Serum or PlasmaTSH Lab Routine Thyroid disease ([facility]) Ordered: 10/02/2024[facility] HealthcareComment on above:Ordered: 10/02/2024 Thyrotropin [Units/volume] in Serum or PlasmaTSH Lab Routine Second trimester ([facility]) Thyroid disease Ordered: 12/11/2024[facility] Work Phone: comtutw on above:Ordered: 12/11/2024UA DIP, URINE (POC)UA DIP, URINE (POC) Lab Routine Infective urethritis Ordered: 08/01/2021 [facility] Work Phone: Comment on above:Ordered: 08/01/2021Vitamin D 1,25 dihydroxyVitamin D 1,25 dihydroxy Lab Routine Low vitamin D level Ordered: 04/04/2024[facility] HealthcareComment on above:Ordered: 04/04/2024 End: 35-50-9373Pcebslp D 25 hydroxyVitamin D 25 hydroxy Lab Routine Insulin controlled gestational diabetes mellitus (GDM) in second trimester 1 Occurrences starting 12/03/2024 until 12/03/2025[facility] Work Phone: comment on above:1 Occurrences starting 12/03/2024 until 12/03/2025[facility] Immunizations Immunization DateImmunizationNotesCare PiziprrnQisfofvr54-78-6168uoxqqfvbm virus vaccine, unspecified formulationKristofer Calix MD Work Phone: [facility] HospitalJjsnlr56-57-2144fclmusf toxoid, reduced diphtheria toxoid, and acellular pertussis vaccine, adsorbedMa Sand Work Phone: [facility] HospitalNEGATED: Highlighted row has not occurred!41-93-6814lvrcukyxs virus vaccine, unspecified formulationScott PRAVEEN [phone]-BdmxwOhiohealth Riverside [facility] Hospital Primary CareNEGATED: Highlighted row has not occurred!46-15-9434dzpgamwxh virus vaccine, unspecified formulationPERNELL LONGORIA [phone]-EcimsOhiohealth [facility]ide [facility] [place] Payers DatePayer CategoryPayerPolicy [id number] 2021Medicaid [place] [employer] MED[employer] [id number] 2020-Present [phone] [place] [address] [id number] 2021Medicaid [id number] 2.16.840.1.945913.3.57[id number] 2.16.840.1.206154.3.57[id number] 2.16.840.1.791729.3.57[id number] 2.16.840.1.487331.3.579.2.12075-41-4868Ncyiyyl0209924 2.16.840.1.188370.3.579.2.75999-93-6554Iiaedqq8368750 2.16840.1.533577.3.579.2.36048-03-8078Rhojfzs8302624 2.16840.1.615840.3.579.2.22347-57-0774Odtfulc1226768 2.16.840.1.430451.3.579.2.64027-71-2932Fqvytzx7855991 2.16.840.1.764693.3.579.2.65885-25-8912Jxgyqwk9183444 2.16.840.1.280661.3.579.2.03614-35-7985Fhrobkt3256249 2.16.840.1.382965.3.579.2.61340-77-4070Pwlpkae1804129 2.16.840.1.479831.3.579.2.31094-10-1053Wresykw5554245 2.16.840.1.540759.3.579.2.47925-91-0017Tnmfhvl1550428 2.16840.1.781217.3.579.2.68892-86-0392Syhgtkd8857351 2.16840.1.939890.3.579.2.25695-15-7470Uvltzkg9682183 2.16840.1.653789.3.579.2.13283-55-2323Jqegxbq9213874 2.16840.1.526804.3.579.2.35535-75-1067Ifbfzbh0553909 2.16840.1.298021.3.579.2.66724-62-9308Tqsjzek2546514 2.16840.1.235203.3.579.2.18418-83-6567Csvvhvi0707569 2.840.1.177406.3.579.2.47407-52-2255Arzklwi6498809 2.840.1.681551.3.579.2.66940-75-7117Uqdyuoq0369615 2.840.1.754063.3.579.2.38597-88-1282Dvuqcnk1444961 2.840.1.696513.3.579.2.95897-16-8890Rxywomw4006212 2.840.1.694264.3.579.2.08304-89-1521Yanirme9181471 2.840.1.647470.3.579.2.41453-30-4101Cktiumy7075312 2.16840.1.316668.3.579.2.23010-00-6426Uobvuhj2430860 2.16840.1.461466.3.579.2.35703-84-1083Fuhmxgp0426397 2.16840.1.468880.3.579.2.45393-87-6357Tkrutng0907898 2.16840.1.562379.3.579.2.71925-28-0098Iwmzpec69615588 2.16840.1.564158.3.579.2.90771-07-5017Qvlcwjl74757447 2.16840.1.431470.3.579.2.96000-59-7987Zvaldhq17311124 2.16840.1.618616.3.579.2.85428-99-1142Zhivaxh97318065 2.16840.1.333047.3.579.2.95722-61-6367Ognugox29628570 2..1.134063.3.579.2.65054-90-5286Wbkmwgo54452163 2..1.858639.3.579.2.66759-27-6463Nyysayk51330856 2.840.1.955595.3.579.2.89497-52-0689Qdibsqx19803248 2.0.1.723419.3.579.2.63680-83-2413Bnnrvye16007764 2.0.1.794207.3.579.2.97162-66-7601Qsmhitc26087978 2..1.705386.3.579.2.46421-96-8522Lixytdt87370759 2.16840.1.354483.3.579.2.61508-88-4858Vuaqcxc18744460 2.16840.1.441521.3.579.2.83139-82-0775Dtpobqh34390277 2.16840.1.535962.3.579.2.29275-87-5698Mvahqlj74271140 2.16840.1.026534.3.579.2.92034-19-2458Jewnzxx23913575 2.16840.1.600813.3.579.2.40566-93-1645Khysfqp93375801 2.16840.1.525294.3.579.2.14938-08-1457Ayrfgdy41622752 2.16840.1.344690.3.57[id number] 2.840.1.006070.3.579.2.16718-61-2069Iprfjaa33739761 2.0.1.416556.3.579.2.39648-19-3183Ocheshd23473778 2.840.1.327177.3.579.2.89232-47-1591Ywkiyux99707656 2.0.1.160716.3.579.2.48203-27-4534Mxyfmab61694235 2.840.1.646583.3.579.2.63117-02-2402Azpuyup97413331 2.0.1.320193.3.579.2.82738-07-1576Gfqcsdv10596563 2.840.1.504262.3.579.2.70529-55-7449Psfgnhi09552204 2.0.1.456173.3.579.2.16948-20-1285Kvevuev72608864 2.840.1.724619.3.579.2.32779-94-7789Cmduawk88294067 2.840.1.936735.3.579.2.72612-53-3167Evjmfaz18116435 2.840.1.128669.3.579.2.94690-50-1112Woibkoz82568955 2.16840.1.943681.3.579.2.58891-44-5274Vrqlbva15777199 2.16840.1.179223.3.579.2.52386-32-0631Iiqlehz25766193 2.16840.1.032404.3.579.2.96110-63-3288Qidnyye13943203 2.16840.1.358124.3.579.2.61807-45-0783Vexxjfn54056351 2.16840.1.307672.3.579.2.97297-92-1989Kgtmemb32622502 2.0.1.218494.3.579.2.01023-19-9085Fvyjyjt56359686 2.0.1.985506.3.579.2.50747-32-2852Dakosbd96366458 2.840.1.086725.3.579.2.61171-93-8293Qjjxwyw53049315 2.840.1.434164.3.579.2.74515-99-9341Fmkqknp28952856 2.840.1.393775.3.579.2.61029-25-9910Rnqpqix95695607 2.0.1.475495.3.579.2.88615-63-7154Uklulkj70630251 2.840.1.580970.3.579.2.44215-55-5110Libxqsv78947292 2.840.1.366433.3.579.2.27681-55-1841Vskaxyk14975413 2.16840.1.561949.3.579.2.05731-40-4745Xpvuzun82371697 2.840.1.569256.3.579.2.63077-10-2549Pdykdwi38121416 2.16840.1.432987.3.579.2.00656-68-2739Usnvrtl449341632 2.16840.1.708273.3.579.2.987652-81-6896Nvfkdid811247244 2.16840.1.132662.3.579.2.447457-33-5390Gjpcchm488033216 2.16840.1.097186.3.579.2.734479-20-1619Kqbyrnt77251909 2.840.1.113936.3.579.2.33745-11-2616Kllwnqu36118677 2.840.1.990514.3.579.2.590032-97-5569Fxddvtv96071225 2.840.1.550775.3.579.2.928557-68-6123Atpjgvm29574322 2.840.1.140943.3.579.2.618958-42-2473Dhfqssc31750983 2.840.1.000187.3.579.2.870871-25-8975Mccuqsx70521417 2.840.1.690435.3.579.2.963125-71-3053Zghlcfq49135694 2.840.1.807570.3.579.2.981909-92-1192Sgwifbs88739033 2.840.1.507359.3.579.2.271783-38-3818Jkmkmmi18488173 2.840.1.415816.3.579.2.055241-97-3897Rbuyivv25695600 2.16840.1.907083.3.579.2.966955-54-5201Wuxkhld76840507 2.16840.1.862455.3.579.2.396934-93-6639Rotfnkj1011846 2.16.840.1.365694.3.579.2.148858-90-0297Rvuydyq2565693 2.16840.1.310299.3.579.2.246283-76-6721Jqridxa2144130 2.16840.1.576316.3.579.2.436646-53-8552Zqixhcb6922649 2.16840.1.837937.3.579.2.719760-86-8141Kchxyul4105010 2.0.1.039366.3.579.2.550147-31-8723Savwnqw7824092 2.840.1.771690.3.579.2.596102-49-4870Ygiigsi789294135 2.840.1.671163.3.579.2.959686-33-3297Icxjjut157260623 2.840.1.281278.3.579.2.317658-16-7941Paveepa413209717 2.840.1.355250.3.579.2.367435-83-2062Armehgx344120443 2.840.1.883319.3.579.2.203097-36-0093Crixmhg491031699 2.840.1.976633.3.579.2.987214-05-0660Gaepbjq345034222 2.16840.1.066133.3.579.2.445751-25-7073Etxljry477129849 2.16840.1.112870.3.579.2.486985-31-9887Lsskjfy059389851 2.16840.1.737653.3.579.2.096437-60-8392Qlwb-daw12-48-5610BgaqtzwC3897534947 18-71-4081Jclgswu44427431950 1.2.840.212324.1.13.239.2.7.3.239899.315Unknown [id number] 2.16.840.1.123961.3.579.2.593 Social History DateTypeDetailFacilityStart: 09-10-2017 End: 15-92-6846Gmzmcko smoking status NHISNever smoked tobaccoHolmes County [facility] Start: 09-10-2017 End: 90-88-6250Uvbovso use and exposureSmokeless tobacco non-userCleveland Clinic Hillcrest Hospitaltart: 08-01-2021 End: 64-29-1167Nbvfrxu intakeCurrent non-drinker of alcohol (finding)[facility]art: 14-21-1924Kpg Assigned At BirthNot on fileCleveland Clinic Hillcrest Hospitaltart: 07-22-2021 End: 50-19-4317Pfxpfhnx to SARS-CoV-2 (event)Not sureCleveland Clinic Hillcrest Hospitaltart: 05-28-2017 End: 58-96-0078Zdvpffa smoking statusNeverMemorial Health System [facility] Start: 06-10-2020 End: 33-25-8955Uzi Assigned At BirthFemalHolzer Health System Start: 11-21-2021 End: 18-92-3619Goaxeuy intakeEx-drinker (finding)[employer] Work Phone: start: 49-00-6460Vedssoh SDOH Alcohol Comment occasionallyBON Naytev Phone: start: 80-40-4294HipnrddoYFV Naytev Phone: start: 06-10-2020 End: 45-13-3493Tjdghno of Social functionCleveland Clinic Hillcrest Hospitaltart: 04-04-2024 End: 04-46-5957Cntbmclny beverage intakeLifetime non-drinker (finding)[facility] HealthcareTobacco smoking status ORISUnknown if ever smokedPaulding County Hospital Work Phone: Start: 11-27-2018 End: 36-36-7909JnoPlogab (finding)[facility] Hospital[facility]: 95-68-3291Dog Assigned At [facility] Medical Equipment Procedure CodeEquipment CodeEquipment Original TextEquipment IdentifierDates [id number]: 10-30-2024 End: each by In Vitro route Daily Use to check FSBS four times daily [id number]: 10-30-2024 End: 42-01-0576Mtb a new needle with each injection ( 1- 5 times per day) [id number]: 12-03-2024 Functional Status GjelIrbyzwoeyfKgftrmTujbsvdt69-12-2694Zuczjdu Health Questionnaire 2 item (PHQ- 2) [Reported]SouthPointe HospitalZpdffanuyg73-79-8901Vbuqgly Health Questionnaire 2 item (PHQ- 2) [Reported][facility]Pointe HospitalIuoygbecgo49-13-7553Cmnrdxqjsz StatusN/[facility] Primary Iubc72-07-0750Drkuhslgam StatusN/[facility] Family Medicine Gakmq04-47-4259Ncrkhyurai StatusN/[facility] Primary Biby60-69-6713Uitwecrlwz StatusN/[facility] Primary Mofx18-67-9626Mygeanaofd StatusN/[facility] Convenient Care 36-09-7299Rzbfnxqdoj StatusN/[facility] Primary Jamc69-21-3050 Functional StatusN/[facility] Primary Libd04-52-0648Vssnqlhrpy StatusN/[facility] Convenient Xbry23-10-4697Clzwtfiifh Status N/[facility] Primary Yqwb87-66-6756Fvwnpmqlnq StatusN/[facility] Primary Cdma78-35-5918Ojpcvwjihh StatusN/[facility] Primary Drja70-73-1034Bithzkngwm StatusN/[facility] Primary Care Clinical Notes 07-26-2019 to 03-11-2025 Note Date & KvurWemfXuhiocuq31-77-5588 History of Present illness Narrative* Charles Cortes [...] age) multigravida 35+ Antiphospholipid syndrome Hypothyroid Stroke ([facility]) Gestational diabetes mellitus (GDM) in second trimester [...] Anemia Antiphospholipid antibody syndrome Cerebral infarction, unspecified ([facility]) 05/16/2019 Hypothyroid Migraine without aura and without status migrainosus, not intractable 09/12/2017 Stroke ([facility]) 2015 REVIEW OF SYSTEMS: Head and Neck: [...] Visit via Real-time Synchronous Audiovisual Provider Location: [facility]- MEDICINE AT [address] [phone] Patient Location: Patient's home Patient Location Collections Director: None Video Visit Consent Statement: I discussed [...] that there are some limitations compared to ujkk-vj-ickb evaluations. We elected to proceed. documented in this encounterSelect Medical Specialty Hospital - CantonBoll & Branch Mclaren FlintXrcxqa85-79-9899 NoteHNO ID: [id number] Author: KATHERINE NEGRETE APRN.RAND BUTTING MACHINE OPERATOR Service: ? Author Type: Nurse Practitioner Type: Progress Notes Filed: 03/02/2025 20:18 Note Text: NAME: Sanna Rendon CLINIC NO.: [id number] DATE OF SERVICE: March 02, 2025 (Penelope) [...] later in 2018. These were found in [place], [place]. I don't have access to these [...] a target-like rash shortly before presenting to [facility] in 2015 with headaches and was [...] SUMMARIZED PLAN OF CARE: Continue Lovenox Saw RECREATIONAL COUNSELOR and patient increased Lovenox to 40 mg [...] She has a h (more content not included)...[place] [address]27-2025 History of Present illness Narrative* Rosi Murray, MEDICAL RECORDS CODER - 02/23/2025 9:00 AM EDT Reason for [...] Diagnosis Date Noted 32 weeks gestation of ([facility]) 11/28/2019 Abdominal pain 06/12/2023 Acute bronchitis due to infection 06/12/2023 Acute on chronic vesicular eczema of hands and feet 11/15/2023 Anemia complicating childbirth ([facility]) 01/16/2020 Anticoagulant long-term use 02/22/2020 Antiphospholipid antibody positive 09/10/2017 Antiphospholipid antibody syndrome ([facility]) 07/07/2019 Anxiety 06/12/2023 Blood pressure elevated without history of HTN 11/15/2023 BMI 37.0-37.9, adult 11/15/2023 Cerebral infarction, unspecified ([facility]) 05/16/2019 Cerebrovascular accident (CVA) due to stenosis of middle cerebral artery ([facility]) 02/22/2020 Cervicalgia 02/05/2019 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 ([facility]) 01/08/2020 Coagulation defect, unspecified ([facility]) 02/05/2019 Cold intolerance 11/15/2023 Deficiency of other specified B group vitamins 05/16/2019 Deviated septum 11/15/2023 Dizziness and giddiness 02/05/2019 Dry mouth 11/15/2023 Dysfunction of eustachian tube 06/12/2023 Dyspnea 06/12/2023 Elevated blood pressure reading 11/15/2023 Encounter for supervision of normal , unspecified, first trimester ([facility]) 05/29/2019 Environmental allergies 11/15/2023 Fatigue 12/29/2016 First degree perineal laceration during delivery ([facility]) 01/16/2020 Frequency of micturition 02/19/2019 Genitourinary symptoms 08/19/2021 Gestational diabetes mellitus (GDM), antepartum ([facility]) 01/26/2022 H/O: hypothyroidism 11/15/2023 Hematochezia 06/12/2023 History [...] anemia 01/16/2020 Irregular uterine bleeding 11/15/2023 problem ([facility]) 06/12/2023 Less than 8 weeks gestation of ([facility]) 06/05/2019 FCI (current) use of 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/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 02/05/2019 Migraine without aura and without status migrainosus, not intractable 09/12/2017 Morbid obesity ([facility]) 11/15/2023 Muscle fasciculation 08/19/2021 Nasal polyps 11/15/2023 Non-smoker 11/15/2023 NEETA (obstructive sleep apnea) 11/15/2023 Other acute postprocedural pain 02/03/2019 Other general symptoms and signs 10/28/2019 Other immediate hemorrhage ([facility]) 01/16/2020 Other specified noninflammatory disorders of vagina 02/21/2019 Pain in joint 12/29/2016 Palpitations 08/26/2019 Paresthesia of bilateral legs 11/15/2023 Pelvic and perineal pain 02/01/2019 Personal history of urinary (tract) infections 01/16/2020 Pre-diabetes 11/15/2023 Primary hypercoagulable state ([facility]) 08/01/2022 Pruritus, unspecified 01/02/2020 Psychogenic hyperventilation 06/12/2023 Raised antibody titer 09/25/2017 Right lower quadrant pain 11/15/2023 Right otitis externa 11/15/2023 Salivary gland swelling 11/15/2023 Single live ([facility]) 01/15/2020 Snoring 11/15/2023 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) 12/30/2019 Suspected severe acute respiratory syndrome coronavirus 2 (SARS-CoV-2) infection 06/12/2023 SVT (supraventricular tachycardia) ([facility]) 08/26/2019 Syncope and collapse 06/03/2018 Other bacterial infections of unspecified site 06/27/2019 Thrombocytopenia, unspecified 11/20/2019 Hypoglycemia 06/12/2023 Unspecified condition associated with female genital organs and menstrual cycle 05/09/2019 Unspecified ovarian cyst, right side 02/06/2019 Urinary tract infection 10/16/2019 Referred otalgia of right ear 11/19/2023 LPRD (laryngopharyngeal reflux disease) 11/19/2023 H/O loss 01/05/2025 Multigravida of advanced maternal age in second trimester ([facility]) 01/05/2025 Thyroid disease 01/05/2025 Resolved Ambulatory Problems Diagnosis Date Noted No Resolved Ambulatory Problems Past Medical History: Diagnosis Date AMA (advanced maternal age) multigravida 35+ ([facility]) Anemia Antiphospholipid syndrome ([facility]) Gestational diabetes ([facility]) [...] drainage of cyst WISDOM TOOTH EXTRACTION 2007 [place] REVIEW OF SYSTEMS Review of Systems: [...] nursing note reviewed. Exam conducted with a ground support equipment fitter present. Vitals: Estimated body mass index is 33.98 kg/m as calculated from the following: Height as of 11/19/23: 5' 6 . Weight as of this encounter: 210 lb 8 oz. BP: 116/72 Patient's last menstrual period was 07/28/2024. Assessment/Plan ICD-10-CM 1. Third trimester ([facility]) Z34.93 2. 30 weeks gestation of ([facility]) Z3A.30 POCT urinalysis dipstick manually [...] of: Wilton Herrmann DO documented in this encounterSouthPointe HospitalOfnsjodaen94-81-1931 History of Present illness Narrative* Sam Callahan MD MPH - 02/16/2025 1:45 PM EDT Images from the original note were not included. ADULT RHEUMATOLOGY CLINIC NOTE [address] [address] Patient Name: Sanna Rendon Subjective Reason for [...] following with two outside specialists (Neurology at [facility] and H[facility]ology at [facility]) for management of her APS. [...] health issues unclear exact diagnoses Note from [facility] Provider (Dr. Noyola): Recent note [...] age) multigravida 35+ Antiphospholipid syndrome Hypothyroid Stroke ([facility]) Gestational diabetes mellitus (GDM) in second trimester [...] Anemia Antiphospholipid antibody syndrome Cerebral infarction, unspecified ([facility]) 05/16/2019 Hypothyroid Migraine without aura and without status migrainosus, not intractable 09/12/2017 Stroke ([facility]) 2016 reviewed. Social History Social History Narrative [...] PARTIDA-28 (ESR): -- Tender (PARTIDA-28): -- Swollen (PARITDA-28): -- Labs and Imaging: reviewed and discussed [...] weeks . She is currently following with [facility] for her , neurology through the [facility] system, and hematology through [facility]. Based on extensive review of [...] Expiration Date: 02/16/2026 Release to patient via MobileReactort?: Immediate [1] Complement profile (C3 AND C4) Standing Status: Future Expiration Date: 02/16/2026 Release to patient via Mira Dxhart?: Immediate [1] DNA double-stranded (dsDNA) Abs by Rene angel IFA Standing Status: Future Expiration Date: 02/16/2026 Release to patient via Mira Dxhart?: Immediate [1] KELLEN Panel Standing Status: Future Expiration Date: 02/16/2026 Release to patient via Mira Dxhart?: Immediate [1] Treatment Plan: -if the patient [...] MPH [facility] [address] [place] [address] Total xyac-lg-qdcr time was 55 minutes with more than [...] your understanding. documented in this encounterMer[facility]10-14-2025 Miscellaneous Notes* Telephone Encounter - Annita [...] in blood sugars weekly. documented in this encounterBrattleboro Memorial HospitalCubicl10-14-2025 Telephone encounter Note* Telephone Encounter - PRISCILLA [...] Continue to send in blood sugars weekly. [employer] Work Phone: [phone] History of Present illness Narrative* Rosi Murray [...] Diagnosis Date Noted 32 weeks gestation of ([facility]) 11/28/2019 Abdominal pain 06/12/2023 Acute bronchitis due to infection 06/12/2023 Acute on chronic vesicular eczema of hands and feet 11/15/2023 Anemia complicating childbirth ([facility]) 01/16/2020 Anticoagulant long-term use 02/22/2020 Antiphospholipid antibody positive 09/10/2017 Antiphospholipid antibody syndrome ([facility]) 07/07/2019 Anxiety 06/12/2023 Blood pressure elevated without history of HTN 11/15/2023 BMI 37.0-37.9, adult 11/15/2023 Cerebral infarction, unspecified ([facility]) 05/16/2019 Cerebrovascular accident (CVA) due to stenosis of middle cerebral artery ([facility]) 02/22/2020 Cervicalgia 02/05/2019 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 ([facility]) 01/08/2020 Coagulation defect, unspecified ([facility]) 02/05/2019 Cold intolerance 11/15/2023 Deficiency of other specified B group vitamins 05/16/2019 Deviated septum 11/15/2023 Dizziness and giddiness 02/05/2019 Dry mouth 11/15/2023 Dysfunction of eustachian tube 06/12/2023 Dyspnea 06/12/2023 Elevated blood pressure reading 11/15/2023 Encounter for supervision of normal , unspecified, first trimester ([facility]) 05/29/2019 Environmental allergies 11/15/2023 Fatigue 12/29/2016 First degree perineal laceration during delivery ([facility]) 01/16/2020 Frequency of micturition 02/19/2019 Genitourinary symptoms 08/19/2021 Gestational diabetes mellitus (GDM), antepartum ([facility]) 01/26/2022 H/O: hypothyroidism 11/15/2023 Hematochezia 06/12/2023 History [...] anemia 01/16/2020 Irregular uterine bleeding 11/15/2023 problem ([facility]) 06/12/2023 Less than 8 weeks gestation of ([facility]) 06/05/2019 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/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 02/05/2019 Migraine without aura and without status migrainosus, not intractable 09/12/2017 Morbid obesity ([facility]) 11/15/2023 Muscle fasciculation 08/19/2021 Nasal polyps 11/15/2023 Non-smoker 11/15/2023 NEETA (obstructive sleep apnea) 11/15/2023 Other acute postprocedural pain 02/03/2019 Other general symptoms and signs 10/28/2019 Other immediate hemorrhage ([facility]) 01/16/2020 Other specified noninflammatory disorders of vagina 02/21/2019 Pain in joint 12/29/2016 Palpitations 08/26/2019 Paresthesia of bilateral legs 11/15/2023 Pelvic and perineal pain 02/01/2019 Personal history of urinary (tract) infections 01/16/2020 Pre-diabetes 11/15/2023 Primary hypercoagulable state ([facility]) 08/01/2022 Pruritus, unspecified 01/02/2020 Psychogenic hyperventilation 06/12/2023 Raised antibody titer 09/25/2017 Right lower quadrant pain 11/15/2023 Right otitis externa 11/15/2023 Salivary gland swelling 11/15/2023 Single live ([facility]) 01/15/2020 Snoring 11/15/2023 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) 12/30/2019 Suspected severe acute respiratory syndrome coronavirus 2 (SARS-CoV-2) infection 06/12/2023 SVT (supraventricular tachycardia) ([facility]) 08/26/2019 Syncope and collapse 06/03/2018 Other bacterial infections of unspecified site 06/27/2019 Thrombocytopenia, unspecified 11/20/2019 Hypoglycemia 06/12/2023 Unspecified condition associated with female genital organs and menstrual cycle 05/09/2019 Unspecified ovarian cyst, right side 02/06/2019 Urinary tract infection 10/16/2019 Referred otalgia of right ear 11/19/2023 LPRD (laryngopharyngeal reflux disease) 11/19/2023 H/O loss 01/05/2025 Multigravida of advanced maternal age in second trimester ([facility]) 01/05/2025 Thyroid disease 01/05/2025 Resolved Ambulatory Problems Diagnosis Date Noted No Resolved Ambulatory Problems Past Medical History: Diagnosis Date AMA (advanced maternal age) multigravida 35+ ([facility]) Anemia Antiphospholipid syndrome ([facility]) Gestational diabetes ([facility]) Heartburn Hypothyroid Stroke ([facility]) HISTORY PAST MEDICAL HISTORY SOCIAL HISTORY Past Medical History: Diagnosis Date AMA (advanced maternal age) multigravida 35+ ([facility]) Anemia Antiphospholipid syndrome ([facility]) Gestational diabetes ([facility]) Heartburn Hypothyroid Stroke ([facility]) Social [...] drainage of cyst WISDOM TOOTH EXTRACTION 2007 [place] REVIEW OF SYSTEMS Review of Systems: [...] nursing note reviewed. Exam conducted with a ground support equipment fitter present. Vitals: Estimated body mass index is 34.12 kg/m as calculated from the following: Height as of 11/19/23: 5' 6 . Weight as of this encounter: 211 lb 6.4 oz. BP: 124/76 Patient's last menstrual period was 07/28/2024. ASSESSMENT & PLAN ICD-10-CM 1. Third trimester ([facility]) Z34.93 2. 28 weeks gestation of ([facility]) Z3A.28 CBC and differential POCT urinalysis dipstick [...] givenorders and they were also faxed to [facility] and [facility] Scheduling. Patient to return to clinic in 2 weeks for routine OB appointment. Documented by Rosi Murray LPN on behalf of: Wilton Herrmann DO documented in this encounterSouthPointe HospitalWxtkxfwcba28-22-7222 History of Present illness Narrative* Mukul Noyola MD - 02/06/2025 2:00 PM EDT Images from the original note were not included. Video Visit via Real-time Synchronous Audiovisual Provider Location: [facility]- MEDICINE AT [address] [id number] Patient Location: Other Home Patient Location Collections Director: None Video Visit Consent Statement: I discussed [...] that there are some limitations compared to uozp-is-ueuk evaluations. We elected to proceed. [facility] Maternal- Medicine Office Note Reason For Office [...] will be undergoing genetic testing through the principal technical specialist. There is family history of hypospadias and [...] Anemia Antiphospholipid antibody syndrome Cerebral infarction, unspecified ([facility]) 05/16/2019 Hypothyroid Migraine without aura and without status migrainosus, not intractable 09/12/2017 Stroke ([facility]) 2016 PSHIST: Past Surgical History: Procedure Laterality [...] to continue to send blood glucoses to [facility] to review - continue Lovenox [...] Mukul Noyola MD, FACOG (she/hers) Maternal- Medicine [facility] [address] [facility] [facility] [address] [place] [address] This document was created with [email or web address] technology. Though I make every effort to review the dictation as it is transcribed, on occasion the spoken word can be misinterpreted by the technology leading to inappropriate words, phrases, or sentences. This note is addressed to the requesting provider as a consultation for clinical guidance. Specificmedical abbreviations are occasionally used and those are generally approved by the [place]?Board of?Obstetrics and?Gynecology?as well as?Elizabeth s abbreviations. The above plan of care was based solely on the diagnoses for which a consultation was requested. ?More frequent testing may be indicated based on her other medical/obstetrical conditions. The management of other or medical conditions is beyond the scope of requested consultation and will c ontinue to be followed by the primary legal librarian or primary care provider. Note to patient: [...] opinion of the practitioner. documented in this encounterSelect Medical Specialty Hospital - CantonBoll & Branch Mclaren FlintGfhrpr44-94-9607 NoteEchocardiology Procedure Exam Date/Time Accession # Ordering Dr. Echo Transthoracic 02/03/2025 10:00 EDT [id number] Wilton HERRMANN DO Complete CPT code 32156 96992 Reason for Exam (Echo Transthoracic Complete) Dizziness and giddiness E07.9, O09.522 R42 Report [facility] [address] [place] [address] Adult Echocardiogram Report Name: SANNA RENDON Study Date: 02/03/2025 08:09 AM BP: 116/76 mmHg Patient Location: FT CAR F HR: 84 : 1985 Gender: Female Height: 66 in Age: 39 yrs Ethnicity: [facility] Weight: 205 lb Reason For Study: Dizziness [...] Signed by: Merrick Watkins MD Transcribed by: [facility] Technologist: [facility]09-22-2025 History of Present illness Narrative* Celia Keith [...] Diagnosis Date Noted 32 weeks gestation of ([facility]) 11/28/2019 Abdominal pain 06/12/2023 Acute bronchitis due to infection 06/12/2023 Acute on chronic vesicular eczema of hands and feet 11/15/2023 Anemia complicating childbirth ([facility]) 01/16/2020 Anticoagulant long-term use 02/22/2020 Antiphospholipid antibody positive 09/10/2017 Antiphospholipid antibody syndrome ([facility]) 07/07/2019 Anxiety 06/12/2023 Blood pressure elevated without history of HTN 11/15/2023 BMI 37.0-37.9, adult 11/15/2023 Cerebral infarction, unspecified ([facility]) 05/16/2019 Cerebrovascular accident (CVA) due to stenosis of middle cerebral artery ([facility]) 02/22/2020 Cervicalgia 02/05/2019 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 ([facility]) 01/08/2020 Coagulation defect, unspecified ([facility]) 02/05/2019 Cold intolerance 11/15/2023 Deficiency of other specified B group vitamins 05/16/2019 Deviated septum 11/15/2023 Dizziness and giddiness 02/05/2019 Dry mouth 11/15/2023 Dysfunction of eustachian tube 06/12/2023 Dyspnea 06/12/2023 Elevated blood pressure reading 11/15/2023 Encounter for supervision of normal , unspecified, first trimester ([facility]) 05/29/2019 Environmental allergies 11/15/2023 Fatigue 12/29/2016 First degree perineal laceration during delivery ([facility]) 01/16/2020 Frequency of micturition 02/19/2019 Genitourinary symptoms 08/19/2021 Gestational diabetes mellitus (GDM), antepartum ([facility]) 01/26/2022 H/O: hypothyroidism 11/15/2023 Hematochezia 06/12/2023 History [...] anemia 01/16/2020 Irregular uterine bleeding 11/15/2023 problem ([facility]) 06/12/2023 Less than 8 weeks gestation of ([facility]) 06/05/2019 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/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 02/05/2019 Migraine without aura and without status migrainosus, not intractable 09/12/2017 Morbid obesity ([facility]) 11/15/2023 Muscle fasciculation 08/19/2021 Nasal polyps 11/15/2023 Non-smoker 11/15/2023 NEETA (obstructive sleep apnea) 11/15/2023 Other acute postprocedural pain 02/03/2019 Other general symptoms and signs 10/28/2019 Other immediate hemorrhage ([facility]) 01/16/2020 Other specified noninflammatory disorders of vagina 02/21/2019 Pain in joint 12/29/2016 Palpitations 08/26/2019 Paresthesia of bilateral legs 11/15/2023 Pelvic and perineal pain 02/01/2019 Personal history of urinary (tract) infections 01/16/2020 Pre-diabetes 11/15/2023 Primary hypercoagulable state ([facility]) 08/01/2022 Pruritus, unspecified 01/02/2020 Psychogenic hyperventilation 06/12/2023 Raised antibody titer 09/25/2017 Right lower quadrant pain 11/15/2023 Right otitis externa 11/15/2023 Salivary gland swelling 11/15/2023 Single live ([facility]) 01/15/2020 Snoring 11/15/2023 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) 12/30/2019 Suspected severe acute respiratory syndrome coronavirus 2 (SARS-CoV-2) infection 06/12/2023 SVT (supraventricular tachycardia) ([facility]) 08/26/2019 Syncope and collapse 06/03/2018 [...] drainage of cyst WISDOM TOOTH EXTRACTION 2007 [place] teeth REVIEW OF SYSTEMS Review of Systems: [...] nursing note reviewed. Exam conducted with a ground support equipment fitter present. Vitals: Estimated body mass index is 34.14 kg/m as calculated from the following: Height as of 11/19/23: 5' 6 . Weight as of this encounter: 211 lb 8 oz. BP: 124/70 Patient's last menstrual period was 07/28/2024. ASSESSMENT & PLAN ICD-10-CM 1. Second trimester ([facility]) Z34.92 POCT urinalysis dipstick manually resulted 2. 25 weeks gestation of ([facility]) Z3A.25 3. Gestational diabetes mellitus (GDM), antepartum, gestational diabetes method of control unspecified ([facility]) O24.419 metFORMIN XR (Glucophage-XR) 500 MG 24 [...] to switch her Lovenox and Metformin to [facility] pharmacy. Growth ultrasound at28 weeks as well as NST and BPP at 28 weeks. Documented by Celia Keith NP on behalf of: Wilton Herrmann DO documented in this encounterSouthPointe [id number] History of Present illness Narrative* Roxana aMys PA-C - 01/13/2025 10:00 AM EDT Maternal- Medicine Consultation VIDEO Patient is present at home , provider present at [facility] HISTORY OF PRESENT ILLNESS: Sanna Rendon is [...] more likely to fail compared to insulin. computer terminal operator data on children whose mothers took oral [...] so she can have them done at [facility] - Anatomy survey with MFM -followsup scheduled [...] by e-mail to: or by fax to: [phone] Roxana Mays PA-C Maternal- Medicine Office phone: [phone] Roxana Mays PA-C 01/13/25 1031 documented in this encounterSelect Medical Specialty Hospital [facility]onBoll & Branch [facility] [id number] Miscellaneous Notes* Medical Student - Mike Aquino [...] medical record. documented in this encounterMer[facility] Progress note* Medical Student - Mike [...] of the legal medical record. [facility]09-12-20[facility] Miscellaneous Notes* Telephone Encounter - Mukul [...] NOYOLA MD documented in this encounterMercy [facility]09-12-2025 Telephone encounter Note* Telephone Encounter - Mukul Noyoal MD - 01/09/2025 4:46 PM EDT I [...] questions and concerns answered. MUKUL NOYOLA MD [facility] [id number] Miscellaneous Notes* Telephone Encounter - Jacque Pat RN - 01/07/2025 10:29 AM EDT Item Repair Manager called and spoke to patient yesterday to discuss a several topics. Item Repair Manager asked if patient wanted another follow up cervical length. Patient declined. We also discussed her insulin dosage. Patient had not started her NPH insulin yet because her pharmacy did not notify her it was ready for pickup. She asked if she could start at 4 units instead of 8. She is worried because she had a bad reaction when she took Lantus previously. Item Repair Manager discussed this with Dr. Noyola and she is okay with her starting at a lower dose for now. Lastly, short story writer notified patient that Dr. Noyola wanted to discuss with her golf technician her Lovenox dosing. Patient stated there was some confusion if she should be on 40mg or 80mg, patient prefers to be on the lower dose. Patient is seeing a Dr. Calix from the [facility] hematology office in [place]. Notified patient that we will reach out to her golf technician to discuss her dosing. documented in this encounterSelect Medical Specialty Hospital - CantonTracked.com09-10-2025 Telephone encounter Note* Telephone Encounter - Jacque Pat RN - 01/07/2025 10:29 AM EDT Item Repair Manager called and spoke to patient yesterday to discuss a several topics. Item Repair Manager asked if patient wanted another follow up cervical length. Patient declined. We also discussed her insulin dosage. Patient had not started her NPH insulin yet because her pharmacy did not notify her it was ready for pickup. She asked if she could start at 4 units instead of 8. She is worried because she had a bad reaction when she took Lantus previously. Item Repair Manager discussed this with Dr. Noyola and she is okay with her starting at a lower dose for now. Lastly, short story writer notified patient that Dr. Noyola wanted to discuss with her golf technician her Lovenox dosing. Patient stated there was some confusion if she should be on 40mg or 80mg, patient prefers to be on the lower dose. Patient is seeing a Dr. Claix from the [facility] hematology office in [place]. Notified patient that we will reach out to her golf technician to discuss her dosing. [employer]09-08-2025 History of Present illness Narrative* Rosi Murray [...] Diagnosis Date Noted 32 weeks gestation of ([facility]) 11/28/2019 Abdominal pain 06/12/2023 Acute bronchitis due to infection 06/12/2023 Acute on chronic vesicular eczema of hands and feet 11/15/2023 Anemia complicating childbirth ([facility]) 01/16/2020 Anticoagulant long-term use 02/22/2020 Antiphospholipid antibody positive 09/10/2017 Antiphospholipid antibody syndrome ([facility]) 07/07/2019 Anxiety 06/12/2023 Blood pressure elevated without history of HTN 11/15/2023 BMI 37.0-37.9, adult 11/15/2023 Cerebral infarction, unspecified ([facility]) 05/16/2019 Cerebrovascular accident (CVA) due to stenosis of middle cerebral artery ([facility]) 02/22/2020 Cervicalgia 02/05/2019 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 ([facility]) 01/08/2020 Coagulation defect, unspecified ([facility]) 02/05/2019 Cold intolerance 11/15/2023 Deficiency of other specified B group vitamins 05/16/2019 Deviated septum 11/15/2023 Dizziness and giddiness 02/05/2019 Dry mouth 11/15/2023 Dysfunction of eustachian tube 06/12/2023 Dyspnea 06/12/2023 Elevated blood pressure reading 11/15/2023 Encounter for supervision of normal , unspecified, first trimester ([facility]) 05/29/2019 Environmental allergies 11/15/2023 Fatigue 12/29/2016 First degree perineal laceration during delivery ([facility]) 01/16/2020 Frequency of micturition 02/19/2019 Genitourinary symptoms 08/19/2021 Gestational diabetes mellitus (GDM), antepartum ([facility]) 01/26/2022 H/O: hypothyroidism 11/15/2023 Hematochezia 06/12/2023 History [...] anemia 01/16/2020 Irregular uterine bleeding 11/15/2023 problem ([facility]) 06/12/2023 Less than 8 weeks gestation of ([facility]) 06/05/2019 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/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 02/05/2019 Migraine without aura and without status migrainosus, not intractable 09/12/2017 Morbid obesity ([facility]) 11/15/2023 Muscle fasciculation 08/19/2021 Nasal polyps 11/15/2023 Non-smoker 11/15/2023 NEETA (obstructive sleep apnea) 11/15/2023 Other acute postprocedural pain 02/03/2019 Other general symptoms and signs 10/28/2019 Other immediate hemorrhage ([facility]) 01/16/2020 Other specified noninflammatory disorders of vagina 02/21/2019 Pain in joint 12/29/2016 Palpitations 08/26/2019 Paresthesia of bilateral legs 11/15/2023 Pelvic and perineal pain 02/01/2019 Personal history of urinary (tract) infections 01/16/2020 Pre-diabetes 11/15/2023 Primary hypercoagulable state ([facility]) 08/01/2022 Pruritus, unspecified 01/02/2020 Psychogenic hyperventilation 06/12/2023 Raised antibody titer 09/25/2017 Right lower quadrant pain 11/15/2023 Right otitis externa 11/15/2023 Salivary gland swelling 11/15/2023 Single live ([facility]) 01/15/2020 Snoring 11/15/2023 Speech and language [...] drainage of cyst WISDOM TOOTH EXTRACTION 2007 [place] teeth REVIEW OF SYSTEMS Review of Systems: [...] nursing note reviewed. Exam conducted with a ground support equipment fitter present. Vitals: Estimated body mass index is 33.73 kg/m as calculated from the following: Height as of 11/19/23: 5' 6 . Weight as of this encounter: 209 lb. BP: 122/74 Patient's last menstrual period was 07/28/2024. ASSESSMENT & PLAN ICD-10-CM 1. Second trimester ([facility]) Z34.92 POCT urinalysis dipstick manually resulted 2. 23 weeks gestation of ([facility]) Z3A.23 3. Thyroid disease E07.9 Echocardiogram 2D complete ECG 12 lead unit performed Echocardiogram 2D complete 4. Gestational diabetes mellitus (GDM), antepartum, gestational diabetes method of control unspecified ([facility]) O24.419 Echocardiogram 2D complete ECG 12 lead unit performed Echocardiogram 2D complete 5. Multigravida of advanced maternal age in second trimester ([facility]) O09.522 Echocardiogram 2D complete ECG 12 lead [...] of: Wilton Herrmann DO documented in this encounterSouthPointe [id number] History of Present illness Narrative* Jacque Pat RN - 01/05/2025 10:20 AM EDT NPH insulin prior authorization approved. Confirmed via telephone call with automated voice messaging system. Prior authorization number #[id number] documented in this encounterMercy Health Lorain Hospital09-04-2025 History of Present illness Narrative* Mukul Noyola MD - 01/01/2025 2:30 PM EDT Images from the original note were not included. Video Visit via Real-time Synchronous Audiovisual Provider Location: [facility]- MEDICINE AT [address] [address] Patient Location: Other [facility] Patient Location Collections Director: None Video Visit Consent Statement: I discussed [...] that there are some limitations compared to [id number]-ys-[id number] evaluations. We elected to proceed. [facility] Maternal- Medicine Consult Note Reason For Consult: [...] will be undergoing genetic testing through the principal technical specialist. There is family history of hypospadias and [...] Anemia Antiphospholipid antibody syndrome Cerebral infarction, unspecified ([facility]) 05/16/2019 Hypothyroid Migraine without aura and without status migrainosus, not intractable 09/12/2017 Stroke ([facility]) 2015 PSHIST: Past Surgical History: Procedure Laterality [...] contrast; Future - [facility] [place], [place]; Future 2. Antiphospholipid syndrome complicating , antepartum - Echo complete W/O contrast; Future - [facility] [place], [place]; Future 3. History of stroke 4. [...] intermittent symptoms concerning for an autoimmune condition [id number]. I recommended she sees a jumpbasting facing baster. Referral given. I asked her to hold [...] supposed to undergo genetic testing with her principal technical specialist. After the patient left I found that [...] asymptomatic I recommend that she sees a pump tender and she desires referral locally. Recommendations: - increase metformin to 1500 mg at night - she is willing to try the NPH 8 units at night - to continue to send blood glucoses to [facility] to review - follow-up survey [...] Mukul Noyola MD, FACOG (she/hers) Maternal- Medicine [facility] [address]st [place] [address] This document was created with [email or web address] technology. Though I make every effort to review the dictation as it is transcribed, on occasion the spoken word can be misinterpreted by the technology leading to inappropriate words, phrases, or sentences. This note is addressed to the requesting provider as a consultation for clinical guidance. Specificmedical abbreviations are occasionally used and those are generally approved by the [place]?Board of?Obstetrics and?Gynecology?as well as?Elizabeth s abbreviations. The above plan of care was based solely on the diagnoses for which a consultation was requested. ?More frequent testing may be indicated based on her other medical/obstetrical conditions. The management of other or medical conditions is beyond the scope of requested consultation and will c taniaue to be followed by the primary legal librarian or primary care provider. Note to patient: [...] male Have you been seen here at [facility] in a previous ? yes Recent ER visits or hospitalizations? Seen in L&D for cramping about 2 weeks ago Bring blood sugar log or meter with you today? (Please bring them with you for every visit at [facility]) scanned to media tab Flu vaccine (Feb-June)? no Any concerns that you would like me to mention to the provider today? No concerns documented in this encounterSelect Medical Specialty Hospital - CantonBig red truck driving school [id number] Miscellaneous Notes* Telephone Encounter - PRISCILLA Del [...] and basics of CGM explained. Will send Videoflow message with instructions on how to connect to our [facility] account. Explained how to prudence notes on the Jenifer kennedy for fasting BG and meals. documented in this encounterSelect Medical Specialty Hospital - CantonBoll & Branch [facility] [id number] Telephone encounter Note* Telephone Encounter - PRISCILLA [...] and basics of CGM explained. Will send Videoflow message with instructions on how to connect to our [facility] account. Explained how to prudence notes on the Jenifer kennedy for fasting BG and meals. [employer]08-26-2025 NoteHNO ID: [id number] Author: KATHERINE NEGRTEE APRN.RAND BUTTING MACHINE OPERATOR Service: ? Author Type: Nurse Practitioner Type: Progress Notes Filed: 12/24/2024 21:07 Note Text: NAME: Sanna Rendon CLINIC NO.: [id number] DATE OF SERVICE: December 23, 2024 (Penelope) [...] later in 2018. These were found in [place], [place]. I don't have access to these [...] a target-like rash shortly before presenting to [facility] in 2016 with headaches and was [...] g/dL, and platelets a (more content not included)...[facility]08-26-2025 History of Present illness Narrative* Katherine Negrete APRN.RAND BUTTING MACHINE OPERATOR - 12/23/2024 11:50 AM EDT Images from the original note were not included. NAME: Sanna Rendon CLINIC NO.: [id number] DATE OF SERVICE: December 23, 2024 (Penelope) [...] later in 2018. These were found in [place], [place]. I don't have access to these [...] a target-like rash shortly before presenting to [facility] in 2016 with headaches and was [...] Monge soon. When she hada stroke in [place], she had symptoms up to a month before: uncontrollable headache, BP was elevated, knee stiffness, and blurry vision. Right facial drooping and difficulty [facility] She continues to take vitamins. Updated [...] and stayed on Lovenox Hgb 13.1 @ [facility] Recommended ER if persisting bleeding but she [...] and at age 69. Both lived in [place], [place] - but she was adopted. She was not able to see ID in October and will be seeing Dr. Baugh next week. Also will have her see Dr. Hamlin for her clotting disorder and make any other recommendations to optimize her treatment. Updated Visit, October 08, 2020: Telephone only Received call from pt stating she was seen in [facility] ER for numbness in her chest, throat, and extremities, and sob which has been worsening over the last week. We arranged a telephone visit for her toreview questions with me. Sanna Rendon is a 34 year old female seen for Hypercoagulable state and recent concerns and symptoms that required her to be seen at [facility] ER. She went to the ER with Gradual worsening of breathing after progressive tingling of fingers and legs. She currently remains very fatigued even though she is sleeping well. Now recalls that before her stroke she remembers having a bull's eye rash and was seen with severe headaches in [place], [place] - was found to have a [...] a root canal and was sent to [facility] for MRI which was negative but non-contrasted. [...] back to January 2016 in [facility] where she had persisting headaches and slurred speech followed by lower extremity weakness. This took a few months to resolve and she is back to her normal state of being but some point in time during her her next she was seen by Dr. Humera Hyde in [place] as well and was found to have [...] which included preparing to see the patient, [id number] patient care, completing clinical documentation, obtaining and/or reviewing separately obtained history, performing a medically appropriate examination, counseling and educating the pat ient/family/caregiver, ordering medications, tests, or procedures, independently interpreting results (not separately reported), and communicating results to the patient/family/caregiver. Katherine Negrete APRN.CNP Hematology and Oncology Services Provided at: [place], [place] CC: MD Wilton Day, [address] [place] [address] Humaira Gaviria MD [address] [place] [address] MD Cosmo Kingston MD Michael Blank, MD documented in this encounterHolmes County Joel [facility]omerene [facility]08-20-2025 History of Present illness Narrative* Alisa Saba APRN-RAND BUTTING MACHINE OPERATOR - 12/17/2024 3:30 PM EDT REASON FOR OFFICE VISIT: Video Visit via Real-time Synchronous Audiovisual Provider Location: [facility]- MEDICINE AT [address] [address] Patient Location: Patient's home Video Visit Consent [...] that there are some limitations compared to tszk-lc-etxy evaluations. The patient consented to the presence [...] TSH 1.25 10/28/2024 No results found for: [id number] No results found for: CREATININE , BUN [...] by e-mail to: or by fax to: [phone] TIME OF CONSULTATION: 45 minutes with the patient, >50% in discussion and counseling, coordination of care which was [id number], review of records and communication back to referring provider. BRENNEN Guillen 12/17/24 1619 documented in this encounterMercy Health Lorain Hospital08-15-2025 Miscellaneous Notes* Telephone Encounter - PRISCILLA [...] verbalized understanding. documented in this encounterMercy Health Lorain Hospital08-15-2025 Telephone encounter Note* Telephone Encounter - [...] APRN 12/17/2024. Sanna verbalized understanding. [facility] [employer] Work Phone: [phone] Miscellaneous Notes* Telephone Encounter - PRISCILLA Sutherland [...] tried higher fiber snacks in the evening. Item Repair Manager told her that I would relay her concerns to [facility] physician and get back to her. Obtained blood sugars for this week and will scan them into her chart. documented in this encounterMercy Health Lorain Hospital08-15-2025 Telephone encounter Note* Telephone Encounter - [...] tried higher fiber snacks in the evening. Item Repair Manager told her that I would relay her concerns to [facility] physician and get back to her. Obtained blood sugars for this week and will scan them into her chart. [employer] Work Phone: [phone] 275-834908-14-2025 History of Present illness Narrative* Rosi Murray, [...] Diagnosis Date Noted 32 weeks gestation of ([facility]) 11/28/2019 Abdominal pain 06/12/2023 Acute bronchitis due to infection 06/12/2023 Acute on chronic vesicular eczema of hands and feet 11/15/2023 Anemia complicating childbirth ([facility]) 01/16/2020 Anticoagulant long-term use 02/22/2020 Antiphospholipid antibody positive 09/10/2017 Antiphospholipid antibody syndrome ([facility]) 07/07/2019 Anxiety 06/12/2023 Blood pressure elevated without history of HTN 11/15/2023 BMI 37.0-37.9, adult 11/15/2023 Cerebral infarction, unspecified ([facility]) 05/16/2019 Cerebrovascular accident (CVA) due to stenosis of middle cerebral artery ([facility]) 02/22/2020 Cervicalgia 02/05/2019 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 ([facility]) 01/08/2020 Coagulation defect, unspecified ([facility]) 02/05/2019 Cold intolerance 11/15/2023 Deficiency of other specified B group vitamins 05/16/2019 Deviated septum 11/15/2023 Dizziness and giddiness 02/05/2019 Dry mouth 11/15/2023 Dysfunction of eustachian tube 06/12/2023 Dyspnea 06/12/2023 Elevated blood pressure reading 11/15/2023 Encounter for supervision of normal , unspecified, first trimester ([facility]) 05/29/2019 Environmental allergies 11/15/2023 Fatigue 12/29/2016 First degree perineal laceration during delivery ([facility]) 01/16/2020 Frequency of micturition 02/19/2019 Genitourinary symptoms 08/19/2021 Gestational diabetes mellitus (GDM) affecting ([facility]) 01/26/2022 H/O: hypothyroidism 11/15/2023 Hematochezia 06/12/2023 History [...] anemia 01/16/2020 Irregular uterine bleeding 11/15/2023 problem ([facility]) 06/12/2023 Less than 8 weeks gestation of ([facility]) 06/05/2019 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/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 02/05/2019 Migraine without aura and without status migrainosus, not intractable 09/12/2017 Morbid obesity ([facility]) 11/15/2023 Muscle fasciculation 08/19/2021 Nasal polyps 11/15/2023 Non-smoker 11/15/2023 NEETA (obstructive sleep apnea) 11/15/2023 Other acute postprocedural pain 02/03/2019 Other general symptoms and signs 10/28/2019 Other immediate hemorrhage ([facility]) 01/16/2020 Other specified noninflammatory disorders of vagina 02/21/2019 Pain in joint 12/29/2016 Palpitations 08/26/2019 Paresthesia of bilateral legs 11/15/2023 Pelvic and perineal pain 02/01/2019 Personal history of urinary (tract) infections 01/16/2020 Pre-diabetes 11/15/2023 Primary hypercoagulable state ([facility]) 08/01/2022 Pruritus, unspecified 01/02/2020 Psychogenic hyperventilation 06/12/2023 Raised antibody titer 09/25/2017 Right lower quadrant pain 11/15/2023 Right otitis externa 11/15/2023 Salivary gland swelling 11/15/2023 Single live ([facility]) 01/15/2020 Snoring 11/15/2023 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) 12/30/2019 Suspected severe acute respiratory syndrome coronavirus 2 (SARS-CoV-2) infection 06/12/2023 SVT (supraventricular tachycardia) ([facility]) 08/26/2019 Syncope and collapse 06/03/2018 [...] drainage of cyst WISDOM TOOTH EXTRACTION 2007 [place] teeth REVIEW OF SYSTEMS Review of Systems: [...] nursing note reviewed. Exam conducted with a ground support equipment fitter present. Vitals: Estimated body mass index is 33.41 kg/m as calculated from the following: Height as of 11/19/23: 5' 6 . Weight as of this encounter: 207 lb. BP: 120/70 Patient's last menstrual period was 07/28/2024. ASSESSMENT & PLAN ICD-10-CM 1. 19 weeks gestation of ([facility]) Z3A.19 POCT urinalysis dipstick manually resulted 2. Second trimester ([facility]) Z34.92 POCT urinalysis dipstick manually resulted 3. Thyroid disease E07.9 4. Multigravida of advanced maternal age in second trimester ([facility]) O09.522 5. Gestational diabetes mellitus (GDM), antepartum, gestational diabetes method of control unspecified ([facility]) O24.419 Patient presents today for a routine [...] scan and Telemedicine with MFM provider in [place]. Documented by Rosi Murray LPN on behalf of: Wilton Herrmann DO documented in this encounterSouthPointe [id number] Miscellaneous Notes* Telephone Encounter - Anni Abreu CMA - 12/03/2024 3:01 PM EDT Left message with patient to call our office to schedule her next appt in 2 week with an RESIDENT ASSISTANT/PA. Left call back number and to press option 3 for scheduling. documented in this encounterMer[facility] Telephone encounter Note* Telephone Encounter - Anni Abreu CMA - 12/03/2024 3:01 PM EDT Left message with patient to call our office to schedule her next appt in 2 week with an RESIDENT ASSISTANT/PA. Left call back number and to press option 3 for scheduling. [facility]08-[facility] History of Present illness Narrative* Alisa Tori, VICTOR HUGO-RAND BUTTING MACHINE OPERATOR - 12/03/2024 2:00 PM EDT REASON [...] starting insulin. She is being followed at [facility] due to GDMA2. States she is [...] TSH 1.25 10/28/2024 No results found for: [id number] No results found for: CREATININE , BUN [...] baby. Little research has been done on snf effects of Metformin exposure to the fetus. [...] by e-mail to: or by fax to: [phone] TIME OF CONSULTATION: 60 minutes with the patient, >50% in discussion and counseling, coordination of care which was [id number], review of records and communication back to referring provider. BRENNEN Guillen 12/03/24 1500 documented in this encounterSelect Medical Specialty Hospital [facility] CantonBoll [facility] [id number] History of Present illness Narrative* Rosi Murray [...] Diagnosis Date Noted 32 weeks gestation of ([facility]) 11/28/2019 Abdominal pain 06/12/2023 Acute bronchitis due to infection 06/12/2023 Acute on chronic vesicular eczema of hands and feet 11/15/2023 Anemia complicating childbirth ([facility]) 01/16/2020 Anticoagulant long-term use 02/22/2020 Antiphospholipid antibody positive 09/10/2017 Antiphospholipid antibody syndrome ([facility]) 07/07/2019 Anxiety 06/12/2023 Blood pressure elevated without history of HTN 11/15/2023 BMI 37.0-37.9, adult 11/15/2023 Cerebral infarction, unspecified ([facility]) 05/16/2019 Cerebrovascular accident (CVA) due to stenosis of middle cerebral artery ([facility]) 02/22/2020 Cervicalgia 02/05/2019 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 ([facility]) 01/08/2020 Coagulation defect, unspecified ([facility]) 02/05/2019 Cold intolerance 11/15/2023 Deficiency of other specified B group vitamins 05/16/2019 Deviated septum 11/15/2023 Dizziness and giddiness 02/05/2019 Dry mouth 11/15/2023 Dysfunction of eustachian tube 06/12/2023 Dyspnea 06/12/2023 Elevated blood pressure reading 11/15/2023 Encounter for supervision of normal , unspecified, first trimester ([facility]) 05/29/2019 Environmental allergies 11/15/2023 Fatigue 12/29/2016 First degree perineal laceration during delivery ([facility]) 01/16/2020 Frequency of micturition 02/19/2019 Genitourinary symptoms 08/19/2021 Gestational diabetes mellitus (GDM) affecting ([facility]) 01/26/2022 H/O: hypothyroidism 11/15/2023 Hematochezia 06/12/2023 History [...] anemia 01/16/2020 Irregular uterine bleeding 11/15/2023 problem ([facility]) 06/12/2023 Less than 8 weeks gestation of ([facility]) 06/05/2019 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/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 02/05/2019 Migraine without aura and without status migrainosus, not intractable 09/12/2017 Morbid obesity ([facility]) 11/15/2023 Muscle fasciculation 08/19/2021 Nasal polyps 11/15/2023 Non-smoker 11/15/2023 NEETA (obstructive sleep apnea) 11/15/2023 Other acute postprocedural pain 02/03/2019 Other general symptoms and signs 10/28/2019 Other immediate hemorrhage ([facility]) 01/16/2020 Other specified noninflammatory disorders of vagina 02/21/2019 Pain in joint 12/29/2016 Palpitations 08/26/2019 Paresthesia of bilateral legs 11/15/2023 Pelvic and perineal pain 02/01/2019 Personal history of urinary (tract) infections 01/16/2020 Pre-diabetes 11/15/2023 Primary hypercoagulable state ([facility]) 08/01/2022 Pruritus, unspecified 01/02/2020 Psychogenic hyperventilation 06/12/2023 Raised antibody titer 09/25/2017 Right lower quadrant pain 11/15/2023 Right otitis externa 11/15/2023 Salivary gland swelling 11/15/2023 Single live ([facility]) 01/15/2020 Snoring 11/15/2023 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) 12/30/2019 Suspected severe acute respiratory syndrome coronavirus 2 (SARS-CoV-2) infection 06/12/2023 SVT (supraventricular tachycardia) ([facility]) 08/26/2019 Syncope and collapse 06/03/2018 [...] Date AMA (advanced maternal age) multigravida 35+ ([facility]) Anemia Antiphospholipid syndrome ([facility]) Gestational diabetes ([facility]) Heartburn Hypothyroid Stroke ([facility]) HISTORY PAST MEDICAL HISTORY SOCIAL HISTORY Past Medical History: Diagnosis Date AMA (advanced maternal age) multigravida 35+ ([facility]) Anemia Antiphospholipid syndrome ([facility]) Gestational diabetes ([facility]) Heartburn Hypothyroid Stroke ([facility]) Social History Tobacco [...] drainage of cyst WISDOM TOOTH EXTRACTION 2007 [place] REVIEW OF SYSTEMS Review of Systems: [...] nursing note reviewed. Exam conducted with a ground support equipment fitter present. Vitals: Estimated body mass index is 33.57 kg/m as calculated from the following: Height as of 11/19/23: 5' 6 . Weight as of this encounter: 208 lb. BP: 108/76 Patient's last menstrual period was 07/28/2024. ASSESSMENT & PLAN ICD-10-CM 1. Second trimester ([facility]) Z34.92 Alpha fetoprotein, maternal Alpha fetoprotein, maternal 2. 16 weeks gestation of ([facility]) Z3A.16 POCT urinalysis dipstick manually resulted 3. Screening, , for anatomic survey ([facility]) Z36.89 CANCELED: US OB 14+ weeks anatomy [...] of: Wilton Herrmann DO documented in this encounterSouthPointe [id number] Group counseling note* Group Note - Cindy [...] Face to face time was 100 minutes. [employer] Work Phone: [phone]) 934-360707-23-2025 Miscellaneous Notes* Group Note - Cindy Miller [...] 100 minutes. documented in this encounterMer[facility]07-09-2025 Telephone encounter Note* Telephone Encounter - Rachael Johnson RN - 11/05/2024 12:48 PM EDT Pt updated. She reports she is unable to take aspirin. It makes my electrolytes go out of whack. Ididn't take with my previous pregnancies and I am not comfortable taking this time either. She will continue with Lovenox, as recommended. Pt is scheduled for appt with junior high math teacher, 11/19/24, [facility]. She denies further questions, needs or concerns for our care team at this time. Appt verified for RTC Rachael Johnson RN [facility]07-09-2025 Miscellaneous Notes* Telephone Encounter - Rachael Johnson RN - 11/05/2024 12:48 PM EDT Pt updated. She reports she is unable to take aspirin. It makes my electrolytes go out of whack. Ididn't take with my previous pregnancies and I am not comfortable taking this time either. She will continue with Lovenox, as recommended. Pt is scheduled for appt with junior high math teacher, 11/19/24, [facility]. She denies further questions, [...] note were not included. documented in this encounterHolmes County [facility]07-09-2025 Telephone encounter Note * Telephone Encounter - Katherine Negrete APRN.CNP - 11/05/2024 12:29 PM EDT Spoke with Dr. Moscoso and she is to continue Lovenox 40 daily and add baby asa (81 mg) daily. Please also make sure she is following OB High risk. Labs acceptable at this time. Will monitor. Thanks, Katherine Negrete APRN.RAND BUTTING MACHINE OPERATOR [facility] Work Phone: [phone] 301-101407-08-2025 Telephone encounter Note* Telephone Encounter - Abbie Jimenez PA-C - 11/04/2024 8:13 AM EDT Katherine saw this patient last and will be able to advise better of the plan of care. Abbie Jimenez PA-C [facility] Work Phone: 1(818) 135-399907-03-2025 History of Present illness Narrative* Rosi Murray [...] Diagnosis Date Noted 32 weeks gestation of ([facility]) 11/28/2019 Abdominal pain 06/12/2023 Acute bronchitis due to infection 06/12/2023 Acute on chronic vesicular eczema of hands and feet 11/15/2023 Anemia complicating childbirth ([facility]) 01/16/2020 Anticoagulant long-term use 02/22/2020 Antiphospholipid antibody positive 09/10/2017 Antiphospholipid antibody syndrome ([facility]) 07/07/2019 Anxiety 06/12/2023 Blood pressure elevated without history of HTN 11/15/2023 BMI 37.0-37.9, adult 11/15/2023 Cerebral infarction, unspecified ([facility]) 05/16/2019 Cerebrovascular accident (CVA) due to stenosis of middle cerebral artery ([facility]) 02/22/2020 Cervicalgia 02/05/2019 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 ([facility]) 01/08/2020 Coagulation defect, unspecified ([facility]) 02/05/2019 Cold intolerance 11/15/2023 Deficiency of other specified B group vitamins 05/16/2019 Deviated septum 11/15/2023 Dizziness and giddiness 02/05/2019 Dry mouth 11/15/2023 Dysfunction of eustachian tube 06/12/2023 Dyspnea 06/12/2023 Elevated blood pressure reading 11/15/2023 Encounter for supervision of normal , unspecified, first trimester ([facility]) 05/29/2019 Environmental allergies 11/15/2023 Fatigue 12/29/2016 First degree perineal laceration during delivery ([facility]) 01/16/2020 Frequency of micturition 02/19/2019 Genitourinary symptoms 08/19/2021 Gestational diabetes mellitus (GDM) affecting ([facility]) 01/26/2022 H/O: hypothyroidism 11/15/2023 Hematochezia 06/12/2023 History [...] anemia 01/16/2020 Irregular uterine bleeding 11/15/2023 problem ([facility]) 06/12/2023 Less than 8 weeks gestation of ([facility]) 06/05/2019 FCI (current) use of 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/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 02/05/2019 Migraine without aura and without status migrainosus, not intractable 09/12/2017 Morbid obesity ([facility]) 11/15/2023 Muscle fasciculation 08/19/2021 Nasal polyps 11/15/2023 Non-smoker 11/15/2023 NEETA (obstructive sleep apnea) 11/15/2023 Other acute postprocedural pain 02/03/2019 Other general symptoms and signs 10/28/2019 Other immediate hemorrhage ([facility]) 01/16/2020 Other specified noninflammatory disorders of vagina 02/21/2019 Pain in joint 12/29/2016 Palpitations 08/26/2019 Paresthesia of bilateral legs 11/15/2023 Pelvic and perineal pain 02/01/2019 Personal history of urinary (tract) infections 01/16/2020 Pre-diabetes 11/15/2023 Primary hypercoagulable state ([facility]) 08/01/2022 Pruritus, unspecified 01/02/2020 Psychogenic hyperventilation 06/12/2023 Raised antibody titer 09/25/2017 Right lower quadrant pain 11/15/2023 Right otitis externa 11/15/2023 Salivary gland swelling 11/15/2023 Single live ([facility]) 01/15/2020 Snoring 11/15/2023 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) 12/30/2019 Suspected severe acute respiratory syndrome coronavirus 2 (SARS-CoV-2) infection 06/12/2023 SVT (supraventricular tachycardia) ([facility]) 08/26/2019 Syncope and collapse 06/03/2018 [...] Date AMA (advanced maternal age) multigravida 35+ ([facility]) Anemia Antiphospholipid syndrome ([facility]) Gestational diabetes ([facility]) Heartburn Hypothyroid Stroke ([facility]) HISTORY PAST MEDICAL HISTORY SOCIAL HISTORY Past Medical History: Diagnosis Date AMA (advanced maternal age) multigravida 35+ ([facility]) Anemia Antiphospholipid syndrome ([facility]) Gestational diabetes ([facility]) Heartburn Hypothyroid Stroke ([facility]) Social History Tobacco Use Smoking [...] drainage of cyst WISDOM TOOTH EXTRACTION 2007 [place] REVIEW OF SYSTEMS Review of Systems: [...] nursing note reviewed. Exam conducted with a ground support equipment fitter present. Vitals: Estimated body mass index is 33.81 kg/m as calculated from the following: Height as of 11/19/23: 5' 6 . Weight as of this encounter: 209 lb 8 oz. BP: 110/76 Patient's last menstrual period was 07/28/2024. ASSESSMENT & PLAN ICD-10-CM 1. Second trimester ([facility]) Z34.92 POCT urinalysis dipstick manually resulted 2. 13 weeks gestation of ([facility]) Z3A.13 3. Thyroid disease E07.9 4. Multigravida of advanced maternal age in second trimester ([facility]) O09.522 New OB: Patient presents today for [...] or undercooked meat, and stay away [facility]. Patient has been consulted regarding any further do's and don'tsof . Patient voiced understanding and all questions and concerns were answered. Patient is currently on 40 Lovenox and will be referred to [facility] for recommendations/co-management throughout . Discussed [...] of: Wilton Herrmann DO documented in this encounterSouthPointe HospitalEsqamukcuh31-09-0930 Telephone encounter Note* Telephone Encounter - Valeri Yeung RN - 10/30/2024 8:30 AM EDT Labs resulted. Please advise. Valeri Yeung RN [facility]07-01-2025 Telephone encounter Note* Telephone Encounter - Roberta Haskins - 10/28/2024 2:52 PM EDT Images from the original note were not included. [facility]07-01-2025 NoteHNO ID: [id number] Author: KATHERINE NEGRETE APRN.RAND BUTTING MACHINE OPERATOR Service: ? Author Type: Nurse Practitioner Type: Progress Notes Filed: 10/29/2024 21:44 Note Text: NAME: Sanna Rendon CLINIC NO.: [id number] DATE OF SERVICE: October 28, 2024 (Penelope) [...] later in 2018. These were found in [place], [place]. I don't have access to these [...] a target-like rash shortly before presenting to [facility] in 2016 with headaches and was [...] vision changes both have (more content not included)...[facility]07-01-2025 History of Present illness Narrative* Katherine Negrete APRN.RAND BUTTING MACHINE OPERATOR - 10/28/2024 2:33 PM EDT Images from the original note were not included. NAME: Sanna Rendon CLINIC NO.: [id number] DATE OF SERVICE: October 28, 2024 (Penelope) Some elements in this clinic note that are critical to medical decision making have been carefully reviewed and included from a prior clinic note dated: October 10, 2024 (Levon) Additional Clinicians involved in Sanna Rendon's care: Joreg Mcwilliams, Humaira Gaviria, CC: Hypercoag state CASE SUMMARY / ASSESSMENT: 39 year old woman presents with a prior history of CVA in 2016 and an antiphospholipid antibody that was identified much later in 2018. These were found in [place], [place]. I don't have access to these [...] a target-like rash shortly before presenting to [facility] in 2016 with headaches and was [...] Monge soon. When she hada stroke in [place], she had symptoms up to a month before: uncontrollable headache, BP was elevated, knee stiffness, and blurry vision. Right facial drooping [facility] difficulty [facility] She continues to take vitamins. Updated [...] and stayed on Lovenox Hgb 13.1 @ [facility] Recommended ER if persisting bleeding but she [...] and at age 69. Both lived in [place], [place] - but she was adopted. She was not able to see ID in October and will be seeing Dr. Baugh next week. Also will have her see Dr. Hamlin for her clotting disorder and make any other recommendations to optimize her treatment. Updated Visit, October 08, 2020: Telephone only Received call from pt stating she was seen in [facility] ER for numbness in her chest, throat, and extremities, and sob which has been worsening over the last week. We arranged a telephone visit for her hcanw questions with me. Sanna Rendon is a 34 year old female seen for Hypercoagulable state and recent concerns and symptoms that required her to be seen at [facility] ER. She went to the ER with Gradual worsening of breathing after progressive tingling of fingers and legs. She currently remains very fatigued even though she is sleeping well. Now recalls that before her stroke she remembers having a bull's eye rash and was seen with severe headaches in [place], [place] - was found to have a [...] a root canal and was sent to [facility] for MRI which was negative but non-contrasted. [...] back to January 2016 in [facility] where she had persisting headaches and slurred speech followed by lower extremity weakness. This took a few months to resolve and she is back to her normal state of being but some point in time during her her next she was seen by Dr. Humera Hyde in [place] as well and was found to have [...] which included preparing to see the patient, [id number] patient care, completing clinical documentation, obtaining and/or reviewing separately obtained history, performing a medically appropriate examination, counseling and educating the pat ient/family/caregiver, ordering medications, tests, or procedures, independently interpreting results (not separately reported), and communicating results to the patient/family/caregiver. Katherine Negrete APRN.TOR Hematology [facility] Oncology Services Provided at: [place], [place] CC: MD [facility] [address] [place] [address] Humaira Gaviria MD [address] [place] [id number] MD Cosmo Kingston MD Michael Blank, MD documented in this encounterHolmes County [facility]06-27-2025 Telephone encounter Note * Telephone Encounter - Kaur Dunham MA - 10/24/2024 2:14 PM EDT New orders may need placed for appt on 10/28. Kaur Dunham MA [facility]06-27-2025 Miscellaneous Notes* Telephone Encounter - Kaur Dunham MA - 10/24/2024 2:14 PM EDT New orders may need placed for appt on 10/28. Kaur Dunham MA documented in this encounterHolmes County [facility]06-16-2025 Miscellaneous Notes* Telephone Encounter - Margo Khan RN - 10/13/2024 12:14 PM EDT Attempted to contact patient x3, call cannot be completed, cannot receive calls at this time. Unable to leave a voicemail. documented in this encounterMercy Health [facility]06-16-2025 Telephone encounter Note* Telephone Encounter - Margo Khan RN - 10/13/2024 12:14 PM EDT Attempted to contact patient x3, call cannot be completed, cannot receive calls at this time. Unable to leave a voicemail. [facility]06-05-2025 History of Present illness Narrative* Lala [...] positive 09/10/2017 Antiphospholipid antibody syndrome ([facility]) 07/07/2019 Anxiety 06/12/2023 Blood pressure elevated without history of HTN 11/15/2023 BMI 37.0-37.9, adult 11/15/2023 Cerebral infarction, unspecified 05/16/2019 Cerebrovascular accident (CVA) due to stenosis of middle cerebral artery ([facility]) 02/22/2020 Cervicalgia 02/05/2019 Chromosomal abnormality [...] Less than 8 weeks gestation of 06/05/2019 FCI (current) use of 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/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 02/05/2019 Migraine without aura and without status migrainosus, not intractable ([facility]) 09/12/2017 Morbid obesity ([facility]) 11/15/2023 Muscle fasciculation 08/19/2021 Nasal [...] Pre-diabetes 11/15/2023 Primary hypercoagulable state ([facility]) 08/01/2022 Pruritus, unspecified 01/02/2020 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[facility]) 06/12/2023 Raised antibody titer 09/25/2017 Right lower quadrant pain 11/15/2023 Right otitis externa 11/15/2023 Salivary gland swelling 11/15/2023 Single live 01/15/2020 Snoring 11/15/2023 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) 12/30/2019 Suspected severe acute respiratory syndrome coronavirus 2 (SARS-CoV-2) infection 06/12/2023 SVT (supraventricular tachycardia) ([facility]) 08/26/2019 Syncope and collapse 06/03/2018 [...] (CMS/HCC) Gestational diabetes Heartburn Hypothyroid (CMS/HCC) Stroke ([facility]) Family History Problem Relation Name [...] drainage of cyst WISDOM TOOTH EXTRACTION 2007 [place] teeth Allergies Allergen Reactions Ciprofloxacin GI intolerance [...] TSH Nurse Note: Patient desires to have Lejunior billion to one. Pt was advised to [...] or undercooked meat, and stay away from [facility]. Patient has also been advised to [...] by: Lala Hess MA documented in this encounterSouthPointe [id number] NotePatient Education Infectious Disease Upper Respiratory Infection, [...] to help relieve symptoms, such as: ??? Wzbo-cgm-lrqwjao cold medicines. ??? Cough suppressants. Coughing is [...] other clear broths. General instructions ??? Take aago-opb-oyjfwes and prescription medicines only as told by [...] and water are not available, use hand blasting entry specialist. ??? Avoid touching your mouth, face, eyes, [...] a stiff neck. ? (more content not included)...[facility]05-07-2025 Miscellaneous Notes* Telephone Encounter - Rachael [...] advise Rachael Johnson RN documented in this encounterHolmes County [facility]05-07-2025 Telephone encounter Note * Telephone Encounter - Rachael Johnson RN - 09/03/2024 1:25 PM EDT Pt notified and appt for September. She denies any further questions, needs or concerns at thistime. Rachael Johnson RN [facility] [facility]05-07-2025 Telephone encounter Note* Telephone Encounter - Kristofer Calix MD - 09/03/2024 12:51 PM EDT No change in meds. [facility]05-06-2025 Telephone encounter Note* Telephone Encounter - Rachael Johnson RN - 09/02/2024 9:37 AM EDT Pt left a voicemail to inform she is approximately 5 weeks . She is asking any recommendations on med changes. Pt missed today's appt. Called and left VM to please call and schedule missed follow up MUNIRA. Fely: Please advise Rachael Johnson RN [facility]04-29-2025 Telephone encounter Note* Telephone Encounter - Serina Dawson MA - 08/26/2024 3:41 PM EDT Patient has an appt on 08/27/24. Would you like labs, if so place orders. Serina Dawson MA [facility]04-29-2025 Miscellaneous Notes* Telephone Encounter - Serina Horton MA - 08/26/2024 3:41 PM EDT Patient has an appt on 08/27/24. Would you like labs, if so place orders. Serina Dawson MA documented in this encounterHolmes [facility] Evaluation + Plan note Future Scheduled Tests Laboratory* HgbA1c 08/05/24 * HgbA1c 11/04/24 Radiology* CT Soft Tissue Neck w/ Contrast 11/12/23 [facility] 03-27-2025 History of Present illness Narrative* Rosi Spitler, MEDICAL RECORDS CODER - 07/24/2024 11:50 AM EDT Reason for [...] positive 09/10/2017 Antiphospholipid antibody syndrome ([facility]/HCC) 07/07/2019 Anxiety 06/12/2023 Blood pressure elevated without history of HTN 11/15/2023 BMI 37.0-37.9, adult 11/15/2023 Cerebral infarction, unspecified ([facility]/HCC) 05/16/2019 Cerebrovascular accident (CVA) due to stenosis of middle cerebral artery ([facility]/HCC) 02/22/2020 Cervicalgia 02/05/2019 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 Coagulation defect, unspecified ([facility]/HCC) 02/05/2019 Cold intolerance 11/15/2023 Deficiency of [...] Less than 8 weeks gestation of 06/05/2019 FCI (current) use of 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/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 02/05/2019 Migraine without aura and without status migrainosus, not intractable ([facility]) 09/12/2017 Morbid obesity (CMS/[facility]) 11/15/2023 Muscle fasciculation 08/19/2021 Nasal [...] 2 (SARS-CoV-2) infection 06/12/2023 SVT (supraventricular tachycardia) ([facility]/HCC) 08/26/2019 Syncope and collapse 06/03/2018 Other [...] drainage of cyst WISDOM TOOTH EXTRACTION 2007 [place] teeth REVIEW OF SYSTEMS Review of Systems: [...] nursing note reviewed. Exam conducted with a ground support equipment fitter present. Vitals: Estimated body mass index is [...] of: Wilton Herrmann DO documented in this encounterSouthPointe [id number] NotePatient Education Emergency Medicine Bradycardia, Adult Bradycardia is a qyndkp-vcqa-nivymp heartbeat. A normal resting heart rate for [...] provider. ??? Follow a heart-healthy diet. A nutritional yeast supervisor (dietitian) can help educate you about [...] liquor (44 mL). General instructions ??? Take kiik-xbp-xztzmpn and prescription medicines only as told by [...] irregular heartbeat (palpitations). ??? (more content not included)...[facility]03-03-2025 Hospital Discharge instructions Patient Education 06/30/2024 [...] Follow these instructions at home: Medicines Give zxkj-hic-dpipblu and prescription medicines only as told by [...] find more information PANDAS Network: pandasnetwork.org National [place] of Mental Health: [facility].nih.gov Contact a health care provider if: [...] the National Suicide Prevention Lifeline at or 205. This is open 24 hours a day. Text the Crisis Text Line at 957698. Summary Pediatric autoimmune neuropsychiatric disorders associated with [...] provider. Document Revised: 01/09/2022 Document Reviewed: 01/09/2022 [employer]I5 Patient Education 2023 [employer]. 06/30/2024 09:20:50 Common Variable Immunodeficiency Common Variable [...] Follow these instructions at home: Medicines Take acol-bqt-btlmzrj and prescription medicines only as told by [...] disease. Where to find more information National [place] of Allergy and Infectious Disease: www.niaid.nih.gov Contact [...] risk for frequent or unusual infections. Take yyzc-dos-logehbp and prescription medicines only as told by [...] provider. Document Revised: 11/18/2021 Document Reviewed: 11/18/2021 UNI5 Patient Education 2023 [employer]. 06/30/2024 09:18:06 DASH Eating Plan DASH Eating [...] Dairy Whole or 2% milk, cream, and gcwu-fzl-aoby. Whole or full-fat cream cheese. Whole-fat or [...] more information National Heart, Lung, and Blood [place] (NHLBI): nhlbi.nih.gov [place] Heart Association (AHA): heart.org Academy of Nutrition and Dietetics: eatright.org National Kidney Foundation (NKF): kidney.org This information is not intended to replace advice given to you by your health care provider. Make sure you discuss any questions you have with your health care provider. Document Revised: 05/03/2023 Document Reviewed: 05/03/2023 Elsevier Patient Education 2023 [employer] Follow Up Care 06/25/2024 13:53:59 With:PRAVEEN RESENDEZ FAAFP, CHRIS Perez, PED Address: [address] [place] [address]- When:Within 2 Month(s) [facility] 03-03-2025 NotePatient Education Immunology [...] these instructions at home: Medicines ??? Take ecvy-tyl-vokyllr and prescription medicines only as told by [...] Where to find more information ??? National [place] of Allergy and Infectious Disease: www.niaid.nih.gov Contact a health care provider if: ??? You have a fever. ??? You have any symptoms of infection such as chills, worsening cough, or severe earache. ??? You make high-pitched whistling sounds when you breathe, most often when you breathe out (wheeze). (more content not included)...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 Coagulation defect, unspecified ([facility]) 02/05/2019 Cold intolerance 11/15/2023 Deficiency [...] Less than 8 weeks gestation of 06/05/2019 FCI (current) use of 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/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 02/05/2019 Migraine without aura and without status migrainosus, not intractable ([facility]) 09/12/2017 Morbid obesity ([facility]) 11/15/2023 Muscle fasciculation 08/19/2021 Nasal [...] Pre-diabetes 11/15/2023 Primary hypercoagulable state ([facility]) 08/01/2022 Pruritus, unspecified 01/02/2020 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[facility]) 06/12/2023 Raised antibody titer 09/25/2017 Right lower quadrant pain 11/15/2023 Right otitis externa 11/15/2023 Salivary gland swelling 11/15/2023 Single live 01/15/2020 Snoring 11/15/2023 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) 12/30/2019 Suspected severe acute respiratory syndrome coronavirus 2 (SARS-CoV-2) infection 06/12/2023 SVT (supraventricular tachycardia) ([facility]) 08/26/2019 Syncope and collapse 06/03/2018 Other bacterial infections of unspecified site 06/27/2019 Thrombocytopenia, unspecified ([facility]) 11/20/2019 Hypoglycemia 06/12/2023 Unspecified condition associated with female genital organs and menstrual cycle 05/09/2019 Unspecified ovarian cyst, right side 02/06/2019 Urinary tract infection 10/16/2019 Referred otalgia of right ear 11/19/2023 LPRD (laryngopharyngeal reflux disease) 11/19/2023 Resolved Ambulatory Problems Diagnosis Date Noted No Resolved Ambulatory Problems Past Medical History: Diagnosis Date AMA (advanced maternal age) multigravida 35+ Anemia Antiphospholipid syndrome ([facility]/HCC) Gestational diabetes Heartburn Hypothyroid ([facility]) Stroke ([facility]) HISTORY PAST MEDICAL HISTORY SOCIAL HISTORY Past Medical History: Diagnosis Date AMA (advanced maternal age) multigravida 35+ Anemia Antiphospholipid syndrome ([facility]/HCC) Gestational diabetes Heartburn Hypothyroid ([facility]) Stroke ([facility]) Social History Tobacco Use Smoking [...] drainage of cyst WISDOM TOOTH EXTRACTION 2007 [place] teeth REVIEW OF SYSTEMS Review of Systems: [...] nursing note reviewed. Exam conducted with a ground support equipment fitter present. Vitals: Estimated body mass index is [...] of: Wilton Herrmann DO documented in this encounterSouthPointe [id number] Hospital Discharge instructions Patient Education 06/09/2024 14:23:47 [...] Do not chew gum. General instructions Take jate-bmt-vsawspp and prescription medicines only as told by [...] important. Where to find more information National [place] of Dental and Craniofacial Research: www.nidcr.nih.gov Contact [...] provider. Document Revised: 11/27/2021 Document Reviewed: 11/27/2021 UNI5 Patient Education 2023 [employer]. Follow Up Care 06/06/2024 11:26:13 With:PRAVEEN RESENDEZ FAAFP, Penelope Tony, CHRIS, PED Address: [address] [place] [address]- When:Within 6 Month(s) [facility] 02-10-2025 NotePatient Education Orthopedics [...] not chew gum. General instructions ??? Take zzlp-ubc-gqufbsd and prescription medicines only as told by [...] Where to find more information ??? National [place] of Dental and Craniofacial Research: www.nidcr.nih.gov Contact [...] provider. Document Revised: 11/27/2021 Document Reviewed: 11/27/2021 UNI5 Patient Education ? 2023 [employer].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 Coagulation defect, unspecified ([facility]) 02/05/2019 Cold intolerance 11/15/2023 Deficiency [...] Less than 8 weeks gestation of 06/05/2019 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/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 02/05/2019 Migraine without aura and without status migrainosus, not intractable ([facility]) 09/12/2017 Morbid obesity ([facility]) 11/15/2023 Muscle fasciculation 08/19/2021 Nasal [...] Pre-diabetes 11/15/2023 Primary hypercoagulable state ([facility]) 08/01/2022 Pruritus, unspecified 01/02/2020 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[facility]) 06/12/2023 Raised antibody titer 09/25/2017 Right lower quadrant pain 11/15/2023 Right otitis externa 11/15/2023 Salivary gland swelling 11/15/2023 Single live 01/15/2020 Snoring 11/15/2023 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) 12/30/2019 Suspected severe acute respiratory syndrome coronavirus 2 (SARS-CoV-2) infection 06/12/2023 SVT (supraventricular tachycardia) ([facility]) 08/26/2019 Syncope and collapse 06/03/2018 Other bacterial infections of unspecified site 06/27/2019 Thrombocytopenia, unspecified ([facility]) 11/20/2019 Hypoglycemia 06/12/2023 Unspecified condition [...] drainage of cyst WISDOM TOOTH EXTRACTION 2007 [place] teeth REVIEW OF SYSTEMS Review of Systems: [...] nursing note reviewed. Exam conducted with a ground support equipment fitter present. Vitals: Estimated body mass index is [...] Patient had recent HCG level drawn at [facility] 05/31/2024 lab value was 6. Documented by Reante Vegas LPN on behalf of: Wilton Herrmann DO documented in this encounterSouthPointe [id number] Telephone encounter Note* Telephone Encounter - Taylor Escudero - 05/28/2024 1:45 PM EST Triage to call with iron results [facility]01-29-2025 Miscellaneous Notes* Telephone Encounter - Taylor Escudero - 05/28/2024 1:45 PM EST Triage to call with iron results documented in this encounterHolmes [facility]01[facility]29[facility] Instructions* Patient Instructions* Nathaly Florence - 05/28/2024 1:44 PM EST Triage to call iron results Continue Lovenox - patient prefers 40 mg (rather than rec 80mg) Encouraged her to reconsider Take B12 supplement in the form of a sublingual tablet RTC in 3 months Labs same day or 2-7 days prior documented in this encounterHolmes [facility]01[facility]29[facility] History of Present illness Narrative* Kristofer Calix MD - 05/28/2024 1:00 PM EST Images from the original note were not included. NAME: Sanna Rendon CLINIC NO.: [id number] DATE OF SERVICE: May 28, 2024 (Levon) [...] later in 2018. These were found in [place], [place]. I don't have access to these [...] a target-like rash shortly before presenting to [facility] in 2015 with headaches and was [...] Monge soon. When she hada stroke in [place], she had symptoms up to a month before: uncontrollable headache, BP was elevated, knee stiffness, and blurry vision. Right facial drooping [facility] She continues to take vitamins. Updated [...] and stayed on Lovenox Hgb 13.1 @ [facility] Recommended ER if persisting bleeding but she [...] and at age 69. Both lived in [place], [place] - but she was adopted. She was not able to see ID in October and will be seeing Dr. Baugh next week. Also will have her see Dr. Hamlin for her clotting disorder and make any other recommendations to optimize her treatment. Updated Visit, October 08, 2020: Telephone only Received call from pt stating she was seen in [facility] ER for numbness in her chest, throat, and extremities, and sob which has been worsening over the last week. We arranged a telephone visit for her toreview questions with me. Sanna Rendon is a 34 year old female seen for Hypercoagulable state and recent concerns and symptoms that required her to be seen at [facility] ER. She went to the ER with Gradual worsening of breathing after progressive tingling of fingers and legs. She currently remains very fatigued even though she is sleeping well. Now recalls that before her stroke she remembers having a bull's eye rash and was seen with severe headaches in [place], [place] - was found to have a [...] a root canal and was sent to [facility] for MRI which was negative but non-contrasted. [...] back to January 2016 in [facility] where she had persisting headaches and slurred speech followed by lower extremity weakness. This took a few months to resolve and she is back to her normal state of being but some point in time during her her next she was seen by Dr. Humera Hyde in [place] as well and was found to have [...] which included preparing to see the patient, bzht-nc-hxlc patient care, completing clinical documentation, performing a medically appropriate examination, counseling and educating the patient/family/caregiver, ordering medications, tests, or p rocedures, independently interpreting results (not separately reported), communicating results to the patient/family/caregiver, and care coordination (not separately reported). Kristofer Calix MD, CPE Hematology and Oncology Services Provided at: [place], [place] Scribe Attestation: This note was scribed [...] my direction. CC: MD Wilton Day, [address] [place] [address] Humaira Gaviria MD [address] [place] [address] [place] [address] MD Cosmo Kingston MD Michael Blank, MD documented in this encounterHolmes [facility]01[facility]29-2025 NoteHNO ID: [id number] Author: KRISTOFER CALIX MD Service: ? Author Type: Physician Type: Progress Notes Filed: 05/29/2024 09:13 Note Text: NAME: Sanna Rendon CLINIC NO.: [id number] DATE OF SERVICE: May 28, 2024 (Levon) [...] later in 2018. These were found in [place], [place]. I don't have access to these [...] a target-like rash shortly before presenting to [facility] in 2016 with headaches and was [...] soon. When she had a stroke in [place], she had symptoms up to a month [...] breast feeding. Updated Visit, (more content not included)...[facility] 05-14-2024 Telephone encounter Note* Telephone Encounter - Rachael Johnson RN - 05/14/2024 10:15 AM EST Pt called to inform she had a miscarriage, Sunday (05/10/24) Asking if any additional blood work was needed from out standpoint. Pt aware we will be checking her CBC for any signs of anemia and her iron studies for deficiency. She is aware if her vp purchasing or PCP request any additional testing, we can certainly draw with her appt 05/21 (will just need to fax orders). She denies any further questions needs or concerns at this time. MARSHA Rushk: YANET [facility]01-15-2025 Miscellaneous Notes* Telephone Encounter - Rachael Johnson RN - 05/14/2024 10:15 AM EST Pt called to inform she had a miscarriage, Sunday (05/10/24) Asking if any additional blood work was needed from out standpoint. Pt aware we will be checking her CBC for any signs of anemia and her iron studies for deficiency. She is aware if her vp purchasing or PCP request any additional testing, we can certainly draw with her appt 05/21 (will just need to fax orders). She denies any further questions needs or concerns at this time. MARSHA Rushk: YANET documented in this encounterHolmes [facility]01-[facility]-2025 Telephone encounter Note * Telephone [...] thinnersat follow up appointment. PVU--Rosi Presley LPN [facility]Pointe [id number] Miscellaneous Notes* Telephone Encounter - Rosi Murray [...] appointment. 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/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 02/05/2019 Migraine without aura and without status migrainosus, not intractable ([facility]) 09/12/2017 Morbid obesity ([facility]) 11/15/2023 Muscle fasciculation 08/19/2021 Nasal [...] infections 01/16/2020 Pre-diabetes 11/15/2023 Primary hypercoagulable state ([facility]) 08/01/2022 Pruritus, unspecified 01/02/2020 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[facility]) 06/12/2023 Raised antibody titer 09/25/2017 Right lower quadrant pain 11/15/2023 Right otitis externa 11/15/2023 Salivary gland swelling 11/15/2023 Single live 01/15/2020 Snoring 11/15/2023 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) 12/30/2019 Suspected severe acute respiratory syndrome coronavirus 2 (SARS-CoV-2) infection 06/12/2023 SVT (supraventricular tachycardia) ([facility]) 08/26/2019 Syncope and collapse 06/03/2018 Other bacterial infections of unspecified site 06/27/2019 Thrombocytopenia, unspecified ([facility]) 11/20/2019 Hypoglycemia 06/12/2023 Unspecified condition associated with female genital organs and menstrual cycle 05/09/2019 Unspecified ovarian cyst, right side 02/06/2019 Urinary tract infection 10/16/2019 Referred otalgia of right ear 11/19/2023 LPRD (laryngopharyngeal reflux disease) 11/19/2023 Resolved Ambulatory Problems Diagnosis Date Noted No Resolved Ambulatory Problems Past Medical History: Diagnosis Date AMA (advanced maternal age) multigravida 35+ Anemia Antiphospholipid syndrome ([facility]) Gestational diabetes Heartburn Hypothyroid ([facility]) Stroke ([facility]) HISTORY PAST MEDICAL HISTORY SOCIAL HISTORY Past Medical History: Diagnosis Date AMA (advanced maternal age) multigravida 35+ Anemia Antiphospholipid syndrome ([facility]/HCC) Gestational diabetes Heartburn Hypothyroid ([facility]/HCC) Stroke ([facility]) Social History Tobacco Use Smoking [...] drainage of cyst WISDOM TOOTH EXTRACTION 2007 [place] teeth REVIEW OF SYSTEMS Review of Systems: [...] nursing note reviewed. Exam conducted with a ground support equipment fitter present. Vitals: Estimated body mass index is [...] urinalysis dipstick manually resulted documented in this encounterSouthPointe [id number] History of Present illness Narrative* Ariane Joseph LPN - 04/04/2024 10:00 AM EST Reason [...] positive 09/10/2017 Antiphospholipid antibody syndrome ([facility]/HCC) 07/07/2019 Anxiety 06/12/2023 Blood pressure elevated without history of HTN 11/15/2023 BMI 37.0-37.9, adult 11/15/2023 Cerebral infarction, unspecified ([facility]) 05/16/2019 Cerebrovascular accident (CVA) due to stenosis of middle cerebral artery ([facility]) 02/22/2020 Cervicalgia 02/05/2019 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 Coagulation defect, unspecified ([facility]) 02/05/2019 Cold intolerance 11/15/2023 Deficiency [...] Less than 8 weeks gestation of 06/05/2019 FCI (current) use of 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/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 02/05/2019 Migraine without aura and without status migrainosus, not intractable ([facility]) 09/12/2017 Morbid obesity ([facility]) 11/15/2023 Muscle fasciculation 08/19/2021 Nasal [...] Pre-diabetes 11/15/2023 Primary hypercoagulable state ([facility]) 08/01/2022 Pruritus, unspecified 01/02/2020 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[facility]) 06/12/2023 Raised antibody titer 09/25/2017 Right lower quadrant pain 11/15/2023 Right otitis externa 11/15/2023 Salivary gland swelling 11/15/2023 Single live 01/15/2020 Snoring 11/15/2023 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) 12/30/2019 Suspected severe acute respiratory syndrome coronavirus 2 (SARS-CoV-2) infection 06/12/2023 SVT (supraventricular tachycardia) ([facility]) 08/26/2019 Syncope and collapse 06/03/2018 Other bacterial infections of unspecified site 06/27/2019 Thrombocytopenia, unspecified ([facility]) 11/20/2019 Hypoglycemia 06/12/2023 Unspecified condition associated with female genital organs and menstrual cycle 05/09/2019 Unspecified ovarian cyst, right side 02/06/2019 Urinary tract infection 10/16/2019 Referred otalgia of right ear 11/19/2023 LPRD (laryngopharyngeal reflux disease) 11/19/2023 Resolved Ambulatory Problems Diagnosis Date Noted No Resolved Ambulatory Problems Past Medical History: Diagnosis Date AMA (advanced maternal age) multigravida 35+ Anemia Antiphospholipid syndrome ([facility]) Gestational diabetes Heartburn Hypothyroid ([facility]) Stroke ([facility]) Family History Problem Relation Name [...] drainage of cyst WISDOM TOOTH EXTRACTION 2007 [place] teeth Allergies Allergen Reactions Ciprofloxacin GI intolerance [...] or undercooked meat, and stay away from [facility]. Patient has also been advised to [...] by: Ariane Joseph LPN documented in this encounterSouthPointe [id number] Telephone encounter Note* Telephone Encounter - Rachael Johnson RN - 02/28/2024 8:21 AM EDT Pt aware and agreeable to plan of care. Pt denies any further questions, needs or concerns at this time. Appt verified for lab/follow up Rachael Johnson RN [facility]10-31-2024 Miscellaneous Notes* Telephone Encounter - [...] advise Rachael Johnson RN documented in this encounterHolmes County [facility]10-30-[facility] Telephone encounter Note * Telephone Encounter - Kristofer Calix MD - 02/27/2024 4:36 PM EDT She can take the iron with prenatals. We should March labs as scheduled. [facility]10-30-2024 Telephone encounter Note* Telephone Encounter - Rachael Johnson RN - 02/27/2024 9:41 AM EDT Pt 4 weeks and inquiring if she should have March's lab work completed now or wait until scheduled appt. Pt last labs completed 01/02/24. Pt also would like to know if it is okay to take with iron? Fely: Please advise Rachael Johnson RN [facility]10-08-2024 Hospital Discharge instructions Patient Education [...] condition. Follow these instructions at home: Take bmas-mue-zdbwfnb and prescription medicines only as told by [...] and water are not available, use hand blasting entry specialist. Avoid contact with people who have cold [...] it is easier to cough up. Take nbtl-ccq-wmxwgcr and prescription medicines only as told by [...] provider. Document Revised: 07/27/2022 Document Reviewed: 08/17/2021 UNI5 Patient Education 2023 [employer]. Follow Up Care 02/04/2024 08:47:42 With:PRAVEEN RESENDEZ FAAFP, CHRIS Perez, PED Address: [address] [place] [address], [facility] [place] [phone]- When:Within 3 Month(s) [facility] 10-08-2024 NotePatient Education Pulmonary [...] Follow these instructions at home: ? Take rwxv-pzf-bpmhggr and prescription medicines only as told by [...] and water are not available, use hand blasting entry specialist. ? Avoid contact with people who have [...] is easier to cough up. ? Take nwmb-xlp-irkqbew and (more content not included)...[facility]10-05-2024 Hospital Discharge instructions Follow Up Care 02/02/2024 11:19:56 With:Anni Bernstein MD, [facility], MED Address: [address] [place] [phone] When: only if needed [facility] 09-09-2024 Miscellaneous Notes* Telephone [...] FE results. Thank you documented in this encounterHolmes County [facility]09-[facility]24 Telephone encounter Note * Telephone Encounter - Valeri Yeung RN - 01/07/2024 8:29 AM EDT No need for IV iron per CC'd chart from Dr. Calix. Attempt to call pt to notify. Left detailed message on, along with call back number on voicemail. Valeri Yeung RN [facility]09-04-2024 Telephone encounter Note* Telephone Encounter - Marleen Mcdonald - 01/02/2024 2:[address] Luna is requesting Triage to call Sanna with her FE results. Thank you [facility]09-04-2024 Instructions* Patient Instructions* Nathaly Florence - 01/02/2024 2:08 PM EDT Triage to call iron results Continue Lovenox - patient prefers 40 mg (rather than rec 80mg) Encouraged her to reconsider Take B12 supplement in the form of a sublingual tablet RTC in 3 months Labs same day Vitamin D, TSH, Calcium with CMP documented in this encounterHolmes County [facility]09-04-2024 Nurse Note* Serina Horton MA [...] MRI but was negative. Serina Dawson MA [facility]09-04-2024 Nurse Note* Serina Dawson MA [...] negative. Serina Dawson MA documented in this encounterHolmes County [facility]09-04-2024 History of Present illness Narrative* Kristofer Calix MD - 01/02/2024 1:45 PM EDT Images from the original note were not included. NAME: Sanna Rendon CLINIC NO.: [id number] DATE OF SERVICE: January 02, 2024 (Levon) [...] later in 2018. These were found in [place], [place]. I don't have access to these [...] a target-like rash shortly before presenting to [facility] in 2016 with headaches and was [...] Monge soon. When she hada stroke in [place], she had symptoms up to a month before: uncontrollable headache, BP was elevated, knee stiffness, and blurry vision. Right facial drooping [facility] difficulty [facility] She continues to take vitamins. Updated [...] and stayed on Lovenox Hgb 13.1 @ [facility] Recommended ER if persisting bleeding but she [...] at age 69. Both lived in [facility] but she was adopted. She was not able to see ID in October and will be seeing Dr. Baugh next week. Also will have her see Dr. Hamlin for her clotting disorder and make any other recommendations to optimize her treatment. Updated Visit, October 08, 2020: Telephone only Received call from pt stating she was seen in [facility] ER for numbness in her chest, throat, and extremities, and sob which has been worsening over the last week. We arranged a telephone visit for her toreview questions with me. Sanna Rendon is a 34 year old female seen for Hypercoagulable state and recent concerns and symptoms that required her to be seen at [facility] ER. She went to the ER with Gradual worsening of breathing after progressive tingling of fingers and legs. She currently remains very fatigued even though she is sleeping well. Now recalls that before her stroke she remembers having a bull's eye rash and was seen with severe headaches in [facility] was found to have a [...] a root canal and was sent to [facility] for MRI which was negative but non-contrasted. [...] back to January 2016 in [facility] where she had persisting headaches and slurred speech followed by lower extremity weakness. This took a few months to resolve and she is back to her normal state of being but some point in time during her her next she was seen by Dr. Humera Hyde in [place] as well and was found to have [...] which included preparing to see the patient, pwip-zg-gefe patient care, completing clinical documentation, performing a medically appropriate examination, counseling and educating the patient/family/caregiver, ordering medications, tests, or p rocedures, independently interpreting results (not separately reported), communicating results to the patient/family/caregiver, and care coordination (not separately reported). Kristofer Calix MD, CPE [facility]ology [facility] Oncology Services Provided at: [place], [place] Scribe Attestation: This note was scribed [...] my direction. CC: MD Wilton Day, [address] [place] [address] Humaira Gaviria MD [address] [place] [id number] MD Cosmo Kingston MD Michael Blank, MD documented in this encounterHolmes County [facility]08[facility] Telephone encounter Note * Telephone Encounter - Rachael Johnson RN - 12/17/2023 12:57 PM EDT Pt updated and will follow up with PCP. Denies further questions, needs or concerns at this time for our provider. Rachael Johnson RN [facility]08-19-2024 Miscellaneous Notes* Telephone Encounter - [...] to IV Iron 11/29/23? documented in this encounterHolmes County [facility]08-19-2024 Telephone encounter Note * Telephone Encounter - Kristofer Calix MD - 12/17/2023 12:52 PM EDT No - sounds like she has some infectious process going on - would rec PCP. [facility]08-19-2024 Telephone encounter Note* Telephone Encounter [...] possible delayed reaction to IV Iron 11/29/23? [facility]08-01-2024 History of Present illness Narrative* Becki Gutierrez RN - 11/29/2023 2:01 PM EDT Y Y documented in this encounterHolmes County [facility]08-01-2024 Telephone encounter Note * Telephone Encounter - Rachael Johnson RN - 11/29/2023 12:45 PM EDT MARSHA Connell, treatment aware of changes. [facility]08-01-2024 Miscellaneous Notes* Telephone Encounter - [...] a different iron formulation. documented in this encounterHolmes County [facility]08-01-2024 Telephone encounter Note * Telephone Encounter - Rachael Johnson RN - 11/29/2023 12:41 PM EDT Spoke with pt. She will obtain Pepcid OTC from our retail pharmacy on arrival to take (1) 20 mg tablet. She is aware and agreeable to IV steroid for infusion as well. Rachael Johnson RN [facility]08-01-2024 Telephone encounter Note* Telephone Encounter - Raissa Aly RPh - 11/29/2023 12:40 PM EDT A one time dose of dexamethasone is safe when . I added 8mg to the plan for your review. Please adjust dose if necessary. Thanks, Raissa Aly RPh [facility] Work Phone: [phone] Telephone encounter Note* Telephone Encounter - Raissa Aly RPh - 11/29/2023 12:34 PM EDT Famotidine is safe when . Do we want to administer the venofer slower? What rate? Thanks, Raissa Aly [facility]08-01-2024 Telephone encounter Note* Telephone Encounter - Rachael Johnson RN - 11/29/2023 11:56 AM EDT Called and discussed with pt. She is and cannot take Benadryl. She is reluctant to take Pepcid. Attempted to call retail, infusion pharmacy and [facility], no answer, to ask safety of pepcid in . Pharm/Fely: please advise Rachael Johnson RN [facility]08-01-2024 Telephone encounter Note* Telephone Encounter [...] have to choose a different iron formulation. [facility]07-18-2024 History of Present illness Narrative* Alison Linares RN - 11/15/2023 1:42 PM EDT Pt reports having nausea and lightheadedness this morning. She has seen her pcp regarding these symptoms and is being worked up to figure out the cause. documented in this encounterHolmes County [facility]07-18-2024 Telephone encounter Note * Telephone Encounter - Evelyn Sanabria - 11/15/2023 9:19 AM EDT 1st report of treatment-Non oncology regimen (Venofer) Patient holds Medicaid coverage and there isno available FA at this time. [facility]07-18-2024 Miscellaneous Notes* Telephone Encounter - Domo Cat Evelyn Radha - 11/15/2023 9:19 AM EDT 1st report of treatment-Non oncology regimen (Venofer) Patient holds Medicaid coverage and there isno available FA at this time. documented in this encounterHolmes County [facility]07-12-2024 Hospital Discharge instructions Patient Education [...] your hypoglycemia. Where to find more information [place] Diabetes Association: www.diabetes.org National [place] of Diabetes and Digestive and Kidney Diseases: [...] provider. Document Revised: 03/17/2021 Document Reviewed: 03/17/2021 UNI5 Patient Education 2022 [employer]. 11/09/2023 15:56:06 Prediabetes Prediabetes Prediabetes is when [...] hard liquor (44 mL). General instructions Take yzee-slc-axwvmli and prescription medicines only as told by [...] is important. Where to find more information [place] Diabetes Association: www.diabetes.org Academy of Nutrition and Dietetics: www.eatright.org [place] Heart Association: www.heart.org Contact a health care [...] provider. Document Revised: 07/15/2020 Document Reviewed: 07/15/2020 UNI5 Patient Education 2022 [employer]. 11/09/2023 15:56:02 Palpitations Palpitations Palpitations are feelings [...] ask your health careprovider. General instructions Take kmpe-yms-eettiao and prescription medicines only as told by [...] provider. Document Revised: 09/07/2021 Document Reviewed: 09/07/2021 UNI5 Patient Education 2022 [employer]. 11/09/2023 15:55:58 Fatigue Fatigue If you have [...] Follow these instructions at home: Medicines Take tyoz-pjy-ilpbfrf and prescription medicines only as told by [...] the National Suicide Prevention Lifeline at or 085. This is open 24 hours a day. Text the Crisis Text Line at 248063. Summary If you have fatigue, you feel [...] Document Reviewed: 02/06/2022 Elsevier Patient Education 2022 [employer]. Follow Up Care 11/08/2023 11:31:43 With:PRAVEEN RESENDEZ FAAFP, Penelope Tony, CHRIS, PED Address: [place], [facility] [place] [address]- When: Unknown [facility] 07-12-2024 NotePatient Education Emergency [...] health care provider. General instructions ? Take qxqm-mbt-zvoljme and prescription medicines only as told by [...] provider. Document Revised: 09/07/2021 Document Reviewed: 09/07/2021 UNI5 Patient Education ? 2022 [employer]. Endocrinology Preventing Hypoglycemia Hypoglycemia occurs when the [...] Mild hypoglycemia may not (more content not included)...[facility]07-12-2024 History of Present illness Narrative* Tamiko Krueger LSW - 11/09/2023 9:27 AM EDT Patient appears on the [facility] First Time Treatment List for a non-oncology treatment. No psychosocial assessment is indicated. TIM Huerta-Jaylan documented in this encounterHolmes County [facility]07-09-2024 Telephone encounter Note * Telephone [...] dizziness, etc. Appointments verified. Rachael Johnson RN [facility]07-09-2024 Miscellaneous Notes* Telephone Encounter - [...] MD Sent: 11/05/2023 11:33 AM EDT To: [facility] Triage Pool; [facility] Clerical Pool Perry Isidro - looks like you need Iron again. Dr. Middleton Cancel her virtual set for 11/05 and 11/19 - infuse 3 doses weekly iron and then see her in 8 weeks inperson - labs same day. Thanks! documented in this encounterHolmes County [facility]07-08-2024 Telephone encounter Note * Telephone [...] get you feeling better. Best, Dr. Middleton [facility]07-08-2024 Telephone encounter Note* Telephone Encounter [...] is on a blood thinner. Roberta Haskins [facility]07-08-2024 Telephone encounter Note* Telephone Encounter - Roberta Haskins - 11/05/2023 12:47 PM EDT Appointment tomorrow cancelled. Andres tried calling her this morning and was unable to get a hold ofher. Will keep trying patient to schedule for Iron. Roberta Haskins [facility]07-08-2024 Telephone encounter Note* Telephone Encounter - Roberta Haskins - 11/05/2023 12:47 PM EDT ----- Message from Rachael Johnson RN sent at 11/05/2023 11:53 AM EDT ----- ----- Message ----- From: Kristofer Calix MD Sent: 11/05/2023 11:33 AM EDT To: [facility] Triage Pool; [facility] Clerical Pool Perry Isidro - looks like you need Iron again. Dr. Middleton Cancel her virtual set for 11/05 and 11/19 - infuse 3 doses weekly iron and then see her in 8 weeks inperson - labs same day. Thanks! [facility]06-25-2024 Hospital Discharge instructions Patient Education [...] specializes in ear, nose, and throat disorders (contact lens flashing puncher, or ENT) for more tests and treatment. [...] (rhinoplasty). Follow these instructions at home: Take mrnn-ohc-mblpbea and prescription medicines only as told by [...] specializes in ear, nose, and throat disorders (contact lens flashing puncher, or ENT) for more tests and treatment. This information is not intended to replace advice given to you by your health care provider. Make sure you discuss any questions you have with your health care provider. Document Revised: 12/12/2021 Document Reviewed: 12/12/2021 UNI5 Patient Education 2022 [employer]. 10/23/2023 17:12:52 Nasal Polyps Nasal Polyps Nasal [...] instructions at home: Medicines Take or use fesy-diz-nfmtdjz and prescription medicines only as told by [...] provider. Document Revised: 04/05/2022 Document Reviewed: 04/05/2022 UNI5 Patient Education 2022 [employer]. 10/23/2023 17:12:52 Nasal Polypectomy Nasal Polypectomy Nasal [...] including vitamins, herbs, eye drops, creams, and pwdw-vgt-xvmtjgz medicines. Any problems you or family members [...] provider tells you to take them. Taking wfoo-ykt-yzjwhph medicines, vitamins, herbs, and supplements. General instructions [...] provider. Document Revised: 04/05/2022 Document Reviewed: 04/05/2022 UNI5 Patient Education 2022 [employer]. 10/23/2023 17:12:46 BMI for Adults BMI for [...] numbers. This can be done either in [place] ([place] or metric measurements. Note that charts and online BMI calculators are available to help you find your BMI quickly and easily without having to do these calculations yourself. To calculate your BMI in [place] ([place] measurements: 1.Measure your weight in pounds [...] Centers for Disease Control and Prevention: www.cdc.gov [place] Heart Association: www.heart.org National Heart, Lung, and Blood [place]: www.nhlbi.nih.gov Summary Body mass index (BMI) is a number that is calculated from a person's weight and height. BMI may help estimate how much of a person's weight is composed of fat. BMI can help identify thosewho may be at higher risk for certain medical problems. BMI can be measured using [place] measurements or metric measurements. BMI charts are used to identify whether you are underweight, normal weight, overweight, or obese. This information is not intended to replace advice given to you by your health care provider. Make sure you discuss any questions you have with your health care provider. Document Revised: 01/07/2020 Document Reviewed: 11/14/2019 UNI5 Patient Education 2022 [employer]. Follow Up Care 10/23/2023 08:49:41 With:Lourdes Urrutia Address: [address] [place] [address], [facility] [place] [address]- When: only if needed [facility] 05-31-2024 Hospital Discharge instructions [...] Follow these instructions at home: Medicines Take xuvp-pnu-ffjiosz and prescription medicines only as told by [...] Watch your condition for any changes. Take piyn-znd-imghhku and prescription medicines only as told by [...] provider. Document Revised: 06/04/2020 Document Reviewed: 08/25/2019 [employer]Liv[employer] Patient Education 2022 [employer]. Follow Up Care 09/28/2023 18:22:59 With:Penelope CASAS Address: [address], [place] [address]- Business (1) When:Within 3 Day(s) [facility]05-31-2024 Hospital Discharge instructions Patient Education [...] numbers. This can be done either in [place] (U.S.) or metric measurements. Note that charts and online BMI calculators are available to help you find your BMI quickly and easily without having to do these calculations yourself. To calculate your BMI in [place] ([place] measurements: 1.Measure your weight in pounds [...] Centers for Disease Control and Prevention: www.cdc.gov [place] Heart Association: www.heart.org National Heart, Lung, and Blood [place]: www.nhlbi.nih.gov Summary Body mass index (BMI) is a number that is calculated from a person's weight and height. BMI may help estimate how much of a person's weight is composed of fat. BMI can help identify thosewho may be at higher risk for certain medical problems. BMI can be measured using [place]ian measurements or metric measurements. BMI charts are used to identify whether you are underweight, normal weight, overweight, or obese. This information is not intended to replace advice given to you by your health care provider. Make sure you discuss any questions you have with your health care provider. Document Revised: 01/07/2020 Document Reviewed: 11/14/2019 UNI5 Patient Education 2022 [employer]. 09/28/2023 18:24:42 Hypertension, Adult, Nzhj-in-Hzdp Hypertension, Adult Hypertension is another name for [...] doctor. Keep all follow-up visits. Medicines Take eazd-pbg-ykmvuog and prescription medicines only as told by [...] provider. Document Revised: 02/02/2022 Document Reviewed: 02/02/2022 UNI5 Patient Education 2022 [employer]. 09/28/2023 18:24:32 Abdominal Pain, Adult, Dusv-mp-Afmw Abdominal Pain, Adult Many things can cause belly (abdominal) pain. Most times, belly pain is not dangerous. Many cases of belly pain can be watched and treated at home. Sometimes, though, belly pain is serious. Your doctor will try to find the cause of your belly pain. Follow these instructions at home: Medicines Take drrj-zng-edikvxy and prescription medicines only as told by [...] your belly pain for any changes. Take hpnu-ufk-yadxkhu and prescription medicines only as told by [...] provider. Document Revised: 08/25/2019 Document Reviewed: 08/25/2019 UNI5 Patient Education 2022 [employer]. Follow Up Care 09/28/2023 16:11:11 With:Emergency room Address: When: only if needed Comments:Patient was instructed to contact emergency room for any worsening abdominal pain, concerns, or complications. [facility] 05-31-2024 Evaluation + Plan [...] 12:40:00 PM Scheduled Provider:Penelope CASAS DO, FAAFP Location:[facility] Appointment Type:FM Open Future Scheduled Tests Laboratory* HgbA1c 08/03/23 [facility]05-30-2024 Telephone encounter Note* Telephone Encounter - Divine Roberta - 09/27/2023 4:38 PM EDT Attempt has been made x2 to reschedule patient. She did not have labs drawn. Roberta Haskins [facility]05-30-2024 Miscellaneous Notes* Telephone Encounter - JocelynelesterRoberta - 09/27/2023 4:38 PM EDT Attempt has been made x2 to reschedule patient. She did not have labs drawn. Roberta Haskins documented in this encounterHolmes [facility]05-29-[facility] History of Present illness Narrative* Kristofer Calix MD - 09/26/2023 9:11 AM EDT Did not have labs done to prep for this visit - reschedule. Kristofer Calix MD documented in this encounterHolmes County [facility]04-[facility]-2024 Hospital Discharge instructions Patient Education [...] your health care provider or diet and nutritional yeast supervisor (dietitian). This may include: ?Eating fewer [...] provider. Document Revised: 06/12/2021 Document Reviewed: 06/12/2021 UNI5 Patient Education 2022 [employer]. Follow Up Care 02/15/2023 10:07:52 With:PRAVEEN RESENDEZ FAAFP, Penelope Tony, CHRIS, PED Address: [address], [place] [address]- When:Within 4 Month(s) [facility] 04-05-2024 Evaluation + Plan note Future Scheduled Tests Laboratory* HgbA1c 08/03/23 Radiology* CT Soft Tissue Neck w/ Contrast 11/12/23 [facility] 02-22-2024 Hospital Discharge [...] or if there is an kennedy for [employer] System[employer]. Most glucose meters store a record of [...] mayhave. Where to find more information The [place] Diabetes Association: www.diabetes.org The Association of Diabetes [...] provider. Document Revised: 01/12/2021 Document Reviewed: 01/12/2021 UNI5 Patient Education 2022 [employer]. 06/21/2023 06:07:34 Preventing Iron Deficiency Anemia, Adult [...] iron. Foods high in vitamin C include: ?[place] fruits, such as tai, oranges, and grapefruits. [...] iron supplement is right for you. Take rvud-rbb-bcduqrk and prescription medicines only as told by your health care provider. Keep all follow-up visits. Where to find more information Learn more about preventing iron deficiency from: National Heart, Lung, and Blood [place]: www.nhlbi.nih.gov [place] Society of Hematology: www.hematology.org Contact a health [...] provider. Document Revised: 05/24/2022 Document Reviewed: 05/24/2022 UNI5 Patient Education 2022 [employer]. 06/21/2023 06:07:28 BMI for Adults BMI for [...] numbers. This can be done either in [place] (U.S.) or metric measurements. Note that charts and online BMI calculators are available to help you find your BMI quickly and easily without having to do these calculations yourself. To calculate your BMI in [place] (U.S.) measurements: 1.Measure your weight in pounds [...] Centers for Disease Control and Prevention: www.cdc.gov [place] Heart Association: www.heart.org National Heart, Lung, and Blood [place]: www.nhlbi.nih.gov Summary Body mass index (BMI) is a number that is calculated from a person's weight and height. BMI may help estimate how much of a person's weight is composed of fat. BMI can help identify thosewho may be at higher risk for certain medical problems. BMI can be measured using [place]ian measurements or metric measurements. BMI charts are used to identify whether you are underweight, normal weight, overweight, or obese. This information is not intended to replace advice given to you by your health care provider. Make sure you discuss any questions you have with your health care provider. Document Revised: 01/07/2020 Document Reviewed: 11/14/2019 UNI5 Patient Education 2022 [employer]. Follow Up Care 06/19/2023 13:39:56 With:PRAVEEN RESENDEZ FAAFP, Penelope Tony, CHRIS, PED Address: [address] [place] [id number]- When: Unknown [facility] 02-20-2024 Miscellaneous Notes* Telephone Encounter - Rachael Johnson RN - 06/19/2023 1:05 PM EST Pt called back and aware of Fely's message. She is agreeable to POC and denies further needs at thistime. She will call PCP to follow up on TSH Rachael Johnson RN * Telephone Encounter - Rachael Johnson RN - 06/19/2023 12:26 PM EST MobileReactort message sent Rachael Johnson RN * Telephone [...] lab results Roberta Haskins documented in this encounterHolmes [facility] Instructions* Patient Instructions* Nathaly Carney [...] TSH, Calcium with CMP documented in this encounterHolmes County [facility]02-16-2024 Nurse Note* Serina Horton MA [...] exercise. Serina Dawson MA documented in this encounterHolmes County [facility]02-16-2024 History of Present illness Narrative* Kristofer Calix MD - 06/15/2023 2:00 PM EST Images from the original note were not included. NAME: Sanna Rendon CLINIC NO.: [id number] DATE OF SERVICE: June 15, 2023 (Levon) [...] later in 2018. These were found in [place], [place]. I don't have access to these [...] a target-like rash shortly before presenting to [facility] in 2016 with headaches and was [...] Monge soon. When she hada stoke in [place], she had symptoms up to a month [...] and stayed on Lovenox Hgb 13.1 @ [facility] Recommended ER if persisting bleeding but she [...] at age 69. Both lived in [facility] but she was adopted. She was not able to see ID in October and will be seeing Dr. Baugh next week. Also will have her see Dr. Hamlin for her clotting disorder and make any other recommendations to optimize her treatment. Updated Visit, October 08, 2020: Telephone only Received call from pt stating she was seen in [facility] ER for numbness in her chest, throat, and extremities, and sob which has been worsening over the last week. We arranged a telephone visit for her franci questions with me. Sanna Rendon is a 34 year old female seen for Hypercoagulable state and recent concerns and symptoms that required her to be seen at [facility] ER. She went to the ER with Gradual worsening of breathing after progressive tingling of fingers and legs. She currently remains very fatigued even though she is sleeping well. Now recalls that before her stroke she remembers having a bull's eye rash and was seen with severe headaches in [facility] was found to have a [...] a root canal and was sent to [facility] for MRI which was negative but non-contrasted. [...] back to January 2016 in [facility] where she had persisting headaches and slurred speech followed by lower extremity weakness. This took a few months to resolve and she is back to her normal state of being but some point in time during her her next she was seen by Dr. Humera Hyde in [place] as well and was found to have [...] which included preparing to see the patient, yfai-wc-bhmh patient care, completing clinical documentation, performing a medically appropriate examination, counseling and educating the patient/family/caregiver, ordering medications, tests, or p rocedures, independently interpreting results (not separately reported), communicating results to the patient/family/caregiver, and care coordination (not separately reported). Kristofer Calix MD, CPE Hematology and Oncology Services Provided at: [place], [place] Scribe Attestation: This note was scribed [...] my direction. CC: MD Wilton Day, [address] [place] [address] Humaira Gaviria MD [address] [place] [id number] MD Cosmo Kingston MD Michael Blank, MD documented in this encounterHolmes County [facility]02-12-2024 Miscellaneous Notes* Telephone Encounter - Ebony Redding Ma - 06/11/2023 10:43 AM EST Labs for appointment on 06/15. Ebony Redding Ma documented in this encounterHolmes County [facility]02-12-2024 Miscellaneous Notes* Telephone Encounter - [...] Nicol Salgado * [facility]/06/2023 8:37 AM EST Records [...] since she was last seen by him. [facility] [address] [facility] [place] Bhavna, Please fax records Andres, Please follow up on this appt. Thank you documented in this encounterHolmes County [facility]02-01-2024 History of Present illness Narrative* Kristofer Calix MD - 05/31/2023 4:30 PM EST Images from the original note were not included. NAME: Sanna Rendon CLINIC NO.: [id number] DATE OF SERVICE: May 31, 2023 (Levon) Some elements in this clinic note that are critical to medical decision making have been carefully reviewed and included from a prior clinic note dated: March 19, 2023 (Levon) Additional Clinicians involved in Sanna Rendon's care: Drs. Herrmann, Jorge Monge, Humaira Gaviria, VIRTUAL VISIT PROGRESS NOTE This is a virtual visit using MobileReactort Zoom Video Visit. It required patient- provider interaction for the medical decision making as documented below. I have communicated my name and active licensure. The patient's identity and physical location wereverified at the time of this visit. Either the patient or their legal front desk representative has been informed of the risks and benefits of -- and alternatives to -- treatment through a remote evaluation andconsents to proceed with the evaluation remotely. CC: hypercoag state. ASSESSMENT: 37 year old woman 25 weeks presents with a prior history of CVA in 2016 and anantiphospholipid antibody that was identified much later in 2018. These were found in [place], [place]. I don't have access to these [...] a target-like rash shortly before presenting to [facility] in 2016 with headaches and was [...] and stayed on Lovenox Hgb 13.1 @ [facility] Recommended ER if persisting bleeding but she would prefer to stay on Lovenox for now. Updated Visit, July 27, 2022: aSnna returns today and has 2 of her [...] at age 69. Both lived in [facility] but she was adopted. She was not able to see ID in October and will be seeing Dr. Baugh next week. Also will have her see Dr. Hamlin for her clotting disorder and make any other recommendations to optimize her treatment. Updated Visit, October 08, 2020: Telephone only Received call from pt stating she was seen in [facility] ER for numbness in her chest, throat, and extremities, and sob which has been worsening over the last week. We arranged a telephone visit for her franci questions with me. Sanna Rendon is a 34 year old female seen for Hypercoagulable state and recent concerns and symptoms that required her to be seen at [facility] ER. She went to the ER with Gradual worsening of breathing after progressive tingling of fingers and legs. She currently remains very fatigued even though she is sleeping well. Now recalls that before her stroke she remembers having a bull's eye rash and was seen with severe headaches in [facility] was found to have a [...] a root canal and was sent to [facility] for MRI which was negative but non-contrasted. [...] back to January 2016 in [facility] where she had persisting headaches and slurred speech followed by lower extremity weakness. This took a few months to resolve and she is back to her normal state of being but some point in time during her her next she was seen by Dr. Humera Hyde in [place] as well and was found to have [...] CPE Hematology and Oncology Services Provided at: [place], [place] CC: MD Wilton Day, [address] [place] [address] Humaira Gaviria MD [address] [place] [id number] MD Cosmo Kingston MD Michael Blank, MD documented in this encounterHolmes County [facility]02-01-2024 Instructions* Patient Instructions* Kristofer Calix [...] TSH, Calcium with CMP documented in this encounterHolmes County [facility]01-26-2024 Hospital Discharge instructions Patient Education [...] your ears completely after. General instructions Take mfvg-mja-ikfoibl and prescription medicines only as told by [...] provider. Document Revised: 06/27/2021 Document Reviewed: 06/27/2021 UNI5 Patient Education 2022 [employer]. 05/25/2023 12:02:06 Dyshidrotic Eczema Dyshidrotic Eczema Dyshidrotic [...] care provider who specializes in skin conditions (accountancy professor) tohelp diagnose and treat this condition. How [...] locks in moisture. Medicines Take and apply gvjl-nno-dvnjjte and prescription medicines only as told by [...] provider. Document Revised: 01/24/2021 Document Reviewed: 01/24/2021 UNI5 Patient Education 2022 [employer]. 05/25/2023 12:02:02 Allergies, Adult, Rhyh-ar-Ipoc Allergies, Adult An allergy means that your [...] instructions at home: Medicines Take or apply yocn-cyp-rpjpfop and prescription medicines only as told by [...] to the hospital. Summary Take or apply dxvr-bey-limzoxy and prescription medicines only as told by [...] provider. Document Revised: 02/25/2020 Document Reviewed: 02/25/2020 UNI5 Patient Education 2022 [employer]. Follow Up Care 05/21/2023 12:21:27 With:PRAVEEN RESENDEZ FAAFP, Penelope Tony, CHRIS, PED Address: [facility] [address], [place] [address]- When:Within 2 Month(s) [facility] 11-20-2023 History of Present illness Narrative* Kristofer Calix MD - 03/19/2023 4:45 PM EST Images from the original note were not included. NAME: Sanna Rendon CLINIC NO.: [id number] DATE OF SERVICE: March 19, 2023 (Levon) [...] visit. Either the patient or their legal front desk representative has been informed of the risks and benefits of -- and alternatives to -- treatment through a remote evaluation andconsents to proceed with the evaluation remotely. CC: hypercoag state. ASSESSMENT: 37 year old woman 25 weeks presents with a prior history of CVA in 2016 and anantiphospholipid antibody that was identified much later in 2018. These were found in [place], [place]. I don't have access to these [...] a target-like rash shortly before presenting to [facility] in 2016 with headaches and was [...] and stayed on Lovenox Hgb 13.1 @ [facility] Recommended ER if persisting bleeding but she [...] at age 69. Both lived in [facility] but she was adopted. She was not able to see ID in October and will be seeing Dr. Baugh next week. Also will have her see Dr. Hamlin for her clotting disorder and make any other recommendations to optimize her treatment. Updated Visit, October 08, 2020: Telephone only Received call from pt stating she was seen in [facility] ER for numbness in her chest, throat, and extremities, and sob which has been worsening over the last week. We arranged a telephone visit for her chanw questions with me. Sanna Rendon is a 34 year old female seen for Hypercoagulable state and recent concerns and symptoms that required her to be seen at [facility] ER. She went to the ER with Gradual worsening of breathing after progressive tingling of fingers and legs. She currently remains very fatigued even though she is sleeping well. Now recalls that before her stroke she remembers having a bull's eye rash and was seen with severe headaches in [facility] was found to have a [...] a root canal and was sent to [facility] for MRI which was negative but non-contrasted. [...] back to January 2016 in [facility] where she had persisting headaches and slurred speech followed by lower extremity weakness. This took a few months to resolve and she is back to her normal state of being but some point in time during her her next she was seen by Dr. Humera Hyde in [place] as well and was found to have [...] CPE Hematology and Oncology Services Provided at: [place], [place] CC: MD Wilton Day, [address] [place] [address] Humaira Gaviria MD [address] [place] [id number] MD Cosmo Kingston MD Michael Blank, MD documented in this encounterHolmes [facility]11-20-2023 Instructions* Patient Instructions* Kristofer Calix MD - 03/19/2023 4:44 PM EST Continue Lovenox - patient prefers 40 mg (rather than rec 80mg) Take B12 supplement in the form of a sublingual tablet. Take Vitamin D3 5000 international unit(s) daily Check labs in 8 weeks Phone / Virtual call after documented in this encounterHolmes County [facility]10-19-2023 Hospital Discharge instructions Patient Education 02/15/2023 10:13:08 Ear Drops, Adult, Tymf-so-Xvox Ear Drops, Adult Your doctor has found [...] cannot use soap and water, use hand blasting entry specialist. 2.Make sure your ears are clean and [...] you cannot use soapand water, use hand blasting entry specialist. Follow these instructions at home: Use the [...] provider. Document Revised: 02/11/2020 Document Reviewed: 02/11/2020 UNI5 Patient Education 2022 UNI5 Inc. 02/15/2023 10:13:05 Otitis Externa, Tbns-kk-Krgk Otitis Externa Otitis externa is an infection [...] if you start to feel better. Take fixw-dbj-mejrmjd and prescription medicines only as told by [...] provider. Document Revised: 06/29/2021 Document Reviewed: 06/29/2021 ElseLivrada Patient Education 2022 [employer]. Follow Up Care 02/14/2023 12:28:12 With:PRAVEEN RESENDEZ FAAFP, Penelope Tony, CHRIS, PED [facility] [address] [facility] [facility] [facility] [place] [address]- When:Within 2 Month(s) [facility] 08-25-2023 Hospital Discharge [...] including vitamins, herbs, eye drops, creams, and ofxf-gub-fgiufxz medicines. ?Whether you are or may be [...] provider. Document Revised: 12/28/2021 Document Reviewed: 11/19/2020 UNI5 Patient Education 2022 [employer]. 12/22/2022 15:19:23 Fatigue Fatigue If you have [...] Follow these instructions at home: Medicines Take ypzo-bus-mebtptk and prescription medicines only as told by [...] the National Suicide Prevention Lifeline at or 149. This is open 24 hours a day. Text the Crisis Text Line at 876916. Summary If you have fatigue, you feel [...] provider. Document Revised: 02/06/2022 Document Reviewed: 02/06/2022 UNI5 Patient Education 2022 [employer]. Follow Up Care 12/22/2022 10:22:02 With:Lourdes Urrutia Address: [facility] [address] [place], [facility] [place] [address]- When: only if needed [facility] 08-25-2023 Instructions* Patient Instructions* Kristofer Calix MD - 12/22/2022 10:13 AM EDT Continue Lovenox - patient prefers 40 mg (rather than rec 80mg) Take B12 supplement in the form of a sublingual tablet. Take Vitamin D3 5000 international unit(s) daily Check labs in 8 weeks Phone / Virtual call after documented in this encounterHolmes County [facility]08-25-2023 History of Present illness Narrative* Kristofer Calix MD - 12/22/2022 9:55 AM EDT Images from the original note were not included. Kristofer Calix MD NAME: Sanna Rendon CLINIC NO.: [id number] DATE OF SERVICE: December 22, 2022 (Levon) [...] visit. Either the patient or their legal front desk representative has been informed of the risks and benefits of -- and alternatives to -- treatment through a remote evaluation andconsents to proceed with the evaluation remotely. CC: hypercoag state. ASSESSMENT: 37 year old woman with a prior history of CVA in 2016 and an antiphospholipid antibody that was identified much later in 2018. These were found in [place], [place]. I don't have access to these [...] a target-like rash shortly before presenting to [facility] in 2016 with headaches and was [...] and stayed on Lovenox Hgb 13.1 @ [facility] Recommended ER if persisting bleeding but she [...] at age 69. Both lived in [facility] but she was adopted. She was not able to see ID in October and will be seeing Dr. Baugh next week. Also will have her see Dr. Hamlin for her clotting disorder and make any other recommendations to optimize her treatment. Updated Visit, October 08, 2020: Telephone only Received call from pt stating she was seen in [facility] ER for numbness in her chest, throat, and extremities, and sob which has been worsening over the last week. We arranged a telephone visit for her franci questions with me. Sanna Rendon is a 34 year old female seen for Hypercoagulable state and recent concerns and symptoms that required her to be seen at [facility] ER. She went to the ER with Gradual worsening of breathing after progressive tingling of fingers and legs. She currently remains very fatigued even though she is sleeping well. Now recalls that before her stroke she remembers having a bull's eye rash and was seen with severe headaches in [place], [place] - was found to have a [...] a root canal and was sent to [facility] for MRI which was negative but non-contrasted. [...] back to January 2016 in [facility] where she had persisting headaches and slurred speech followed by lower extremity weakness. This took a few months to resolve and she is back to her normal state of being but some point in time during her her next she was seen by Dr. Humera Hyde in [place] as well and was found to have [...] CPE Hematology and Oncology Services Provided at: [place], [place] CC: MD Wilton Day, [address] [place] [address] Humaira Gaviria MD [address] [facility] [id number] MD Cosmo Kingston MD Michael Blank, MD documented in this encounterHolmes County [facility]08-16-2023 Miscellaneous Notes* Telephone Encounter - [...] later time. Roberta Haskins documented in this encounterHolmes County [facility]06-23-2023 Hospital Discharge instructions Patient Education [...] your health care provider or diet and nutritional yeast supervisor (dietitian). This may include: ?Eating fewer [...] provider. Document Revised: 06/12/2021 Document Reviewed: 06/12/2021 UNI5 Patient Education 2022 [employer]. 10/20/2022 10:37:18 Preventing Type 2 Diabetes Mellitus [...] with a registered dietitian. This diet and nutritional yeast supervisor can help you make a healthy eating plan and help you understand portion sizes and food labels. Where to find support Ask your health care provider to recommend a registered dietitian, a certified diabetes care and educational institution curator, or a weight loss program. Look for local or online weight loss groups. Join a gym, fitness club, or outdoor activity group, such as a walking club. Where to find more information For help and guidance and to learn more about diabetes and diabetes prevention, visit: [place] Diabetes Association (ADA): www.diabetes.org National [place] of Diabetes and Digestive and Kidney Diseases: [...] provider. Document Revised: 07/11/2021 Document Reviewed: 07/11/2021 UNI5 Patient Education 2022 [employer]. 10/20/2022 10:37:17 Preventing Hypoglycemia Preventing Hypoglycemia Hypoglycemia [...] your hypoglycemia. Where to find more information [place] Diabetes Association: www.diabetes.org National [place] of Diabetes and Digestive and Kidney Diseases: [...] provider. Document Revised: 03/17/2021 Document Reviewed: 03/17/2021 UNI5 Patient Education 2022 [employer]. 10/20/2022 10:37:16 Gestational Diabetes Mellitus, Diagnosis, Cjpv-sp-Ulol Gestational Diabetes Mellitus, Diagnosis Gestational diabetes mellitus [...] follow-up visits. Where to find more information [place] Diabetes Association (ADA): diabetes.org Association of Diabetes Care & Education Specialists (ADCES): diabeteseducator.org Centers for Disease Control and Prevention (CDC): cdc.gov [place] Association: americanpregnancy.org U.S. Department of Agriculture MyPlate: [...] provider. Document Revised: 09/20/2020 Document Reviewed: 09/20/2020 UNI5 Patient Education 2022 [employer]. Follow Up Care 09/19/2022 14:47:09 With:PRAVEEN RESENDEZ FAAFP, CHRIS Perez, PED Address: [place] [address]- When:Within 3 Month(s) [facility] 06-01-2023 History of Present illness Narrative* Kristofer Calix MD - 09/28/2022 5:00 PM EDT Images from the original note were not included. Kristofer Calix MD NAME: Sanna Rendon CLINIC NO.: [id number] DATE OF SERVICE: September 28, 2022 (Levon) [...] visit. Either the patient or their legal front desk representative has been informed of the risks and benefits of -- and alternatives to -- treatment through a remote evaluation andconsents to proceed with the evaluation remotely. CC: hypercoag state. ASSESSMENT: 36 year old woman 25 weeks presents with a prior history of CVA in 2016 and anantiphospholipid antibody that was identified much later in 2018. These were found in [place], [place]. I don't have access to these [...] a target-like rash shortly before presenting to [facility] in 2016 with headaches and was [...] and stayed on Lovenox Hgb 13.1 @ [facility] Recommended ER if persisting bleeding but she [...] at age 69. Both lived in [facility] but she was adopted. She was not able to see ID in October and will be seeing Dr. Baugh next week. Also will have her see Dr. Hamlin for her clotting disorder and make any other recommendations to optimize her treatment. Updated Visit, October 08, 2020: Telephone only Received call from pt stating she was seen in [facility] ER for numbness in her chest, throat, and extremities, and sob which has been worsening over the last week. We arranged a telephone visit for her toreview questions with me. Sanna Rendon is a 34 year old female seen for Hypercoagulable state and recent concerns and symptoms that required her to be seen at [facility] ER. She went to the ER with Gradual worsening of breathing after progressive tingling of fingers and legs. She currently remains very fatigued even though she is sleeping well. Now recalls that before her stroke she remembers having a bull's eye rash and was seen with severe headaches in [place], [place] - was found to have a [...] a root canal and was sent to [facility] for MRI which was negative but non-contrasted. [...] back to January 2016 in [facility] where she had persisting headaches and slurred speech followed by lower extremity weakness. This took a few months to resolve and she is back to her normal state of being but some point in time during her her next she was seen by Dr. Humera Hyde in [place] as well and was found to have [...] CPE Hematology and Oncology Services Provided at: [place], [place] CC: MD Wilton Day, [address] [place] [address] Humaira Gaviria MD [address] [place] [address] [place] [address] MD Cosmo Kingston MD Michael Blank, MD documented in this encounterHolmes County [facility]05-24-2023 Miscellaneous Notes* Telephone Encounter - Cheri Acharya Sec - 09/20/2022 7:06 AM EDT Cxed appt * Telephone Encounter - Valeri Yeung RN - 09/19/2022 3:29 PM EDT Patient would like to have labs drawn at [facility]. Called [facility] lab to get fax number. Lab orders faxed to [phone] Valeri Yeung RN PSS: Can you cancel lab appointment for 09/21/22 here. Thanks. Valeri Yeung RN documented in this encounterHolmes County [facility]04-04-2023 Instructions* Patient Instructions* Kristofer Calix MD - 08/01/2022 10:56 AM EDT Continue Lovenox - patient prefers 40 mg (rather than rec 80mg) 8 weeks - labs Phone / Virtual call after documented in this encounterHolmes County [facility]03-30-2023 History of Present illness Narrative* Kristofer Calix MD - 07/27/2022 1:18 PM EDT NAME: Sanna Rendon CLINIC NO.: [id number] DATE OF SERVICE: July 27, 2022 (Levon) [...] later in 2018. These were found in [place], [place]. I don't have access to these [...] a target-like rash shortly before presenting to [facility] in 2016 with headaches and was [...] at age 69. Both lived in [facility] but she was adopted. She was not able to see ID in October and will be seeing Dr. Baugh next week. Also will have her see Dr. Hamlin for her clotting disorder and make any other recommendations to optimize her treatment. Updated Visit, October 08, 2020: Telephone only Received call from pt stating she was seen in [facility] ER for numbness in her chest, throat, and extremities, and sob which has been worsening over the last week. We arranged a telephone visit for her domingoeview questions with me. Sanna Rendon is a 34 year old female seen for Hypercoagulable state and recent concerns and symptoms that required her to be seen at [facility] ER. She went to the ER with Gradual worsening of breathing after progressive tingling of fingers and legs. She currently remains very fatigued even though she is sleeping well. Now recalls that before her stroke she remembers having a bull's eye rash and was seen with severe headaches in [place], [place] - was found to have a [...] a root canal and was sent to [facility] for MRI which was negative but non-contrasted. [...] back to January 2016 in [facility] where she had persisting headaches and slurred speech followed by lower extremity weakness. This took a few months to resolve and she is back to her normal state of being but some point in time during her her next she was seen by Dr. Humera Hyde in [place] as well and was found to have [...] which included preparing to see the patient, llqy-tr-[id number] patient care, completing clinical documentation, obtaining and/or reviewing separately obtained history, performing a medically appropriate examination, counseling and educating the pat ient/family/caregiver, ordering medications, tests, or procedures, independently interpreting results (not separately reported), and care coordination (not separately reported). Kristofer Calix MD, CPE Hematology and Oncology Services Provided at: [place], [place] CC: MD Wilton Day, [address] [place] [address] Humaira Gaviria MD [address] [facility] [id number] MD Cosmo Kingston MD Michael Blank, MD documented in this encounterHolmes County [facility]12-07-2022 History of Present illness Narrative* [...] to standard infusion rate. documented in this encounterHolmes County [facility]12-06-2022 Miscellaneous Notes* Telephone Encounter - [...] All questions answered. Pt transferred to front window cashier at her request so she can reschedule dates of IV iron d/t otherappts. FELY: Pt would like to have Venofer ordered and not get Monoferric even if approved. Please place orders if agreeable. Meme Gonzalez RN documented in this encounterHolmes County [facility]12-01-2022 Miscellaneous Notes* Telephone Encounter - [...] were not included. Kristofer Calix MD [facility] Triage Pool; [facility] Clerical Pool She needs iron MUNIRA - if monoferric isn't approved, lets get her in weekly for Venna for. * Telephone Encounter - Roberta Haskins - 03/27/2022 2:57 PM EST 2. Consider IV iron a. Triage nurse to please call iron results when available this week documented in this encounterHolmes County [facility]11-28-2022 Instructions* Patient Instructions* Kristofer Calix MD - 03/27/2022 2:51 PM EST Continue Lovenox - patient prefers 40 mg (rather than rec 80mg) Consider IV iron Triage nurse to please call iron results when available this week Will recheck antiphospholipid antibodies as ordered and every 6 months. RTC in 8 weeks - labs same day. documented in this encounterHolmes County [facility]11-28-2022 History of Present illness Narrative* Kristofer Calix MD - 03/27/2022 2:15 PM EST Images from the original note were not included. NAME: Sanna Rendon CLINIC NO.: [id number] DATE OF SERVICE: March 27, 2022 (radhaelaina) [...] later in 2018. These were found in [place], [place]. I don't have access to these [...] a target-like rash shortly before presenting to [facility] in 2016 with headaches and was [...] at age 69. Both lived in [facility] but she was adopted. She was not able to see ID in October and will be seeing Dr. Baugh next week. Also will have her see Dr. Hamlin for her clotting disorder and make any other recommendations to optimize her treatment. Updated Visit, October 08, 2020: Telephone only Received call from pt stating she was seen in [facility] ER for numbness in her chest, throat, and extremities, and sob which has been worsening over the last week. We arranged a telephone visit for her chanw questions with me. Sanna Rendon is a 34 year old female seen for Hypercoagulable state and recent concerns and symptoms that required her to be seen at [facility] ER. She went to the ER with Gradual worsening of breathing after progressive tingling of fingers and legs. She currently remains very fatigued even though she is sleeping well. Now recalls that before her stroke she remembers having a bull's eye rash and was seen with severe headaches in [place], [place] - was found to have a [...] a root canal and was sent to [facility] for MRI which was negative but non-contrasted. [...] back to January 2016 in [facility] where she had persisting headaches and slurred speech followed by lower extremity weakness. This took a few months to resolve and she is back to her normal state of being but some point in time during her her next she was seen by Dr. Humera Hyde in [place] as well and was found to have [...] which included preparing to see the patient, iuxh-pk-msty patient care, completing clinical documentation, obtaining and/or reviewing separately obtained history, performing a medically appropriate examination, counseling and educating the pat ient/family/caregiver, ordering medications, tests, or procedures, independently interpreting results (not separately reported), and care coordination (not separately reported). Kristofer Calix MD, CPE Hematology and Oncology Services Provided at: [place], [place] CC: MD Wilton Day, [address] [place] [address] Humaira Gaviria MD [address] [place] [id number] MD Cosmo Kingston MD Michael Blank, MD documented in this encounterHolmes County [facility]10-03-2022 Instructions* Patient Instructions* Kristofer Calix MD - 01/30/2022 12:[address] Hamlin's expertise and will prescribe Lovenox - patient prefers 40 mg (rather than rec 80mg) Will recheck antiphospholipid antibodies as ordered and every 6 months. RTC in 8 weeks - labs same day. documented in this encounterHolmes County [facility]10-03-2022 History of Present illness Narrative* Kristofer Calix MD - 01/30/2022 11:59 AM EDT Images from the original note were not included. NAME: Sanna Rendon CLINIC NO.: [id number] DATE OF SERVICE: January 30, 2022 Some [...] later in 2018. These were found in [place], [place]. I don't have access to these [...] a target-like rash shortly before presenting to [facility] in 2016 with headaches and was [...] at age 69. Both lived in [facility] but she was adopted. She was not able to see ID in October and will be seeing Dr. Baugh next week. Also will have her see Dr. Hamlin for her clotting disorder and make any other recommendations to optimize her treatment. Updated Visit, October 08, 2020: Telephone only Received call from pt stating she was seen in [facility] ER for numbness in her chest, throat, and extremities, and sob which has been worsening over the last week. We arranged a telephone visit for her chanw questions with me. Sanna Rendon is a 34 year old female seen for Hypercoagulable state and recent concerns and symptoms that required her to be seen at [facility] ER. She went to the ER with Gradual worsening of breathing after progressive tingling of fingers and legs. She currently remains very fatigued even though she is sleeping well. Now recalls that before her stroke she remembers having a bull's eye rash and was seen with severe headaches in [facility] was found to have a [...] a root canal and was sent to [facility] for MRI which was negative but non-contrasted. [...] back to January 2016 in [facility] where she had persisting headaches and slurred speech followed by lower extremity weakness. This took a few months to resolve and she is back to her normal state of being but some point in time during her her next she was seen by Dr. Humera Hyde in [place] as well and was found to have [...] which included preparing to see the patient, lden-ey-vacp patient care, completing clinical documentation, obtaining and/or reviewing separately obtained history, performing a medically appropriate examination, counseling and educating the pat ient/family/caregiver, and ordering medications, tests, or procedures. Kristofer Calix MD, [place], [place] CC: MD Chalino Dayy Jeanine Herrmann, [address] [place] [address] Humaira Gaviria MD [address] [place] [id number] MD Cosmo Kingston MD Michael Blank, MD documented in this encounterHolmes County [facility]10-03-2022 Nurse Note* Serina Dawson MA - 01/30/2022 11:55 AM EDT Patient states she may be diagnosed with gestational diabetes, she was from 215 to 52 a couple hours later after eating wheat cereal. She sees OB tomorrow. Serina Dawson MA documented in this encounterHolmes County [facility]09-02-2022 Miscellaneous Notes* Telephone Encounter - Tonja Pope RN - 12/30/2021 10:15 AM EDT Call received from Sanna requesting refill of Lovenox 40 mg to be sent to [facility] in [place]. FELY: Please review and approve if you agree. Tonja Chery RN documented in this encounterHolmes County [facility]06-13-2022 Miscellaneous Notes* Telephone Encounter - Meme Easton RN - 10/10/2021 12:15 PM EDT Received call from pt requesting refill of Lovenox 40 mg to be sent to [facility] in [place]. FELY: Pt also states she had one episode of blood in her stool which was dripping blood which concerned her. She is not ready to move to 80 mg of Lovenox at this time. Order pending. Please review and sign if agreeable. Meme Easton RN documented in this encounterHolmes County [facility]05-10-2022 Miscellaneous Notes* Telephone Encounter - [...] agreeable. Meme Easton RN documented in this encounterHolmes County [facility]05-09-2022 Miscellaneous Notes* Telephone Encounter - [...] advise. Meme Easton RN documented in this encounterHolmes County [facility]04-25-2022 Miscellaneous Notes* Telephone Encounter - [...] Thoughts? Meme Easton RN documented in this encounterHolmes County [facility]04-22-2022 Hospital Discharge instructions Patient Education [...] including vitamins, herbs, eye drops, creams, and xzuu-pfu-sfziqst medicines. ?Whether you are or may be [...] 02/11/2008 Document Revised: 08/05/2019 Document Reviewed: 02/18/2018 [employer] Patient Education 2020 [employer] 08/19/2021 13:02:21 Dysuria Dysuria Dysuria is [...] alcohol may irritate the prostate. Medicines Take blua-pqx-siuynef and prescription medicines only as told by [...] 01/12/2005 Document Revised: 03/29/2018 Document Reviewed: 01/31/2018 [employer] Patient Education 2020 [employer]. 08/19/2021 13:02:17 Budget-Friendly Healthy Eating Budget-Friendly Healthy [...] frozen fruits, and frozen vegetables. Avoid buying rupbp-an-kks foods, such as pre-cut fruits and vegetables [...] 12/18/2014 Document Revised: 04/17/2018 Document Reviewed: 04/17/2018 [employer] Patient Education 2020 [employer]. 08/19/2021 13:02:15 BMI for Adults BMI for [...] height. This can be done either in [place] ([place] or metric measurements. Note that charts are available to help you find your BMI quickly and easily without having to do these calculations yourself. To calculate your BMI in [place] measurements, your health care provider will: [...] medical problems. BMI can be measured using [place] measurements or metric measurements. To interpret your [...] 12/26/2004 Document Revised: 03/29/2018 Document Reviewed: 02/27/2018 [employer] Patient Education 2020 [employer]. 08/19/2021 13:02:11 Paresthesia Paresthesia Paresthesia is an [...] fried or sweet foods. General instructions Take slai-jbs-vafujda and prescription medicines only as told by [...] 04/06/2003 Document Revised: 05/12/2019 Document Reviewed: 04/25/2018 [employer] Patient Education 2020 [employer]. Follow Up Care 08/19/2021 09:17:52 With:PRAVEEN RESENDEZ FAAFP, Penelope Tony, CHRIS, PED Address: [address], [place] [address]- When:1 to 2 weeks [facility] [place] 04-22-2022 Evaluation + Plan note Future Scheduled Tests Radiology* XR Spine Lumbosacral Minimum 4 Views 08/19/21 [facility]04-07-2022 Miscellaneous Notes* Telephone Encounter - Roberta Haskins - 08/04/2021 3:36 PM EDT Patient is scheduled for 09/[address] Elliott. Roberta Haskins * Telephone Encounter - Roberta Divine - 08/01/2021 1:05 PM EDT Sent Email to Cancer Answer Line to refer patient back to Dr. Cosmo Elliott Dx: Primary hypercoagulable state (HCC) Roberta Divine documented in this encounterHolmes County [facility]04-04-2022 Nurse Note* Ebony Redding Ma - 08/01/2021 12:48 PM EDT UA ran as ordered. Ebony Redding Ma documented in this encounterHolmes County [facility]03-28-2020 Evaluation + Plan note Future Appointments Appointment Date:07/25/2024 02:30:00 PM Scheduled [facility] Type:CV EKG (FT) Appointment Date:07/25/2024 03:00:00 PM Scheduled Provider: [facility] Appointment Type:CV Holter/Event (FT) Appointment Date:09/09/2024 08:20:00 AM Scheduled Provider:Penelope CASAS DO, FAAFP Location:[facility] Appointment Type:FM Open Future Scheduled Tests Laboratory* HgbA1c 08/05/24 * HgbA1c 11/04/24 Radiology* CT Soft Tissue Neck w/ Contrast 11/12/23 [facility] 03-28-2020 Evaluation + Plan note Future Appointments Appointment Date:07/25/2024 02:30:00 PM Scheduled Provider: [facility] Appointment Type:CV EKG (FT) Appointment Date:07/25/2024 03:00:00 PM Scheduled Provider: [facility] Appointment Type:CV Holter/Event (FT) Appointment Date:09/09/2024 08:20:00 AM Scheduled Provider:Penelope CASAS DO, FAAFP Location:[facility] Appointment Type:FM Open Diagnostic Tests Pending * Hepatitis B Surface Antigen 07/09/24 * HCV Antibody RFX to Quant PCR 07/09/24 * Hep Be Ag 07/09/24 * HIV Screen 4th Generation wRfx 07/09/24 Future Scheduled Tests Laboratory* HgbA1c 08/05/24 * HgbA1c 11/04/24 Radiology* CT Soft Tissue Neck w/ Contrast 11/12/23 [facility] Evaluation + Plan note Future Appointments Appointment Date:11/08/2021 12:40:00 PM Scheduled Provider:Penelope CASAS DO, FAAFP Location:[facility] Appointment Type:FM Open Future Scheduled Tests Radiology* XR Spine Lumbosacral Minimum 4 Views 08/19/21 [facility] [place] Evaluation + Plan note Future Appointments Appointment Date:11/08/2021 12:40:00 PM Scheduled Provider:Penelope CASAS DO, FAAFP Location:[facility] Appointment Type:FM Open Diagnostic Tests Pending * Urine Culture 08/19/21 Future Scheduled Tests Radiology* XR Spine Lumbosacral Minimum 4 Views 08/19/21 [facility] App[facility]ments Appointment Date:09/21/2022 10:00:00 AM Scheduled Provider:Penelope CASAS DO, FAAFP Location:[facility]ment Type: [facility] Future Appointments Appointment Date:10/20/2022 09:40:00 AM Scheduled Provider:Penelope CASAS DO, FAAFP Location[facility] Future Appointments Appointment Date:01/26/2023 10:40:00 AM Scheduled Provider:Penelope CASAS DO, FAAFP Location:[facility] Appointment Type: Open [facility] Evaluation + Plan note Future Appointments Appointment Date:04/17/2023 02:20:00 PM Scheduled Provider:Penelope CASAS DO, FAAFP Location:[facility] Appointment Type:FM Open Future Scheduled Tests Laboratory* HgbA1c 02/15/23 * Thyroid Stimulating Hormone 02/15/23 * Thyroid Stimulating Hormone 01/11/23 [facility] Evaluation + Plan note Future Appointments Appointment Date:07/24/2023 01:20:00 PM Scheduled Provider:Penelope CASAS DO, FAAFP Location:[facility] Appointment Type:FM Open Future Scheduled Tests Laboratory* HgbA1c 02/15/23 * Thyroid Stimulating Hormone 02/15/23 [facility] App[facility]ments Appointment Date:07/24/2023 01:20:00 PM Scheduled Provider:Penelope CASAS DO, FAAFP Location:[facility] Appointment Type: Open [facility] Evaluation + Plan note Future Appointments Appointment Date:12/03/2023 12:40:00 PM Scheduled Provider:Penelope CASAS DO, FAAFP Location:[facility] Appointment Type:FM Open Future Scheduled Tests Laboratory* HgbA1c 08/03/23 [facility] evaluation + Plan note Future Appointments Appointment Date:12/03/2023 12:40:00 PM Scheduled Provider:Penelope CASAS DO, FAAFP Location:[facility] Appointment Type:FM Open Future Scheduled Tests Laboratory* Sedimentation Rate Automated 11/09/23 * HgbA1c 08/03/23 * Amylase Level 11/09/23 * Cortisol 11/09/23 * C-Reactive Protein 11/09/23 * T3 Free 11/09/23 * Thyroid Stimulating Hormone 11/09/23 * Free T4 11/09/23 * Vitamin B12 Level 11/09/23 Radiology* MRI Brain w/o Contrast 11/09/23 * MRI Orbit Face Neck w/o contrast 11/09/23 [facility] evaluation + Plan note Future Appointments Appointment Date:01/11/2024 08:15:00 PM Scheduled Provider: [facility] App[facility] Type:ENTRY LEVEL ELECTRICIAN Sleep Study PSG () Appointment Date:01/29/2024 01:20:00 PM Scheduled Provider:Penelope CASAS DO, FAAFP Location:[facility] Appointment Type:FM Open Diagnostic Tests Pending * Cortisol 12/06/23 * T3 Free 12/06/23 Future Scheduled Tests Laboratory* HgbA1c 08/03/23 Radiology* CT Soft Tissue Neck w/ Contrast 11/12/23 [facility] evaluation + Plan note Future Appointments Appointment Date:05/16/2024 11:40:00 AM Scheduled Provider:Penelope CASAS DO, FAAFP Location:[facility] Appointment Type:FM Open Future Scheduled Tests Laboratory* HgbA1c 02/05/24 * HgbA1c 05/07/24 * HgbA1c 08/05/24 * HgbA1c 11/04/24 * HgbA1c 08/03/23 * HIV Screen 4th Generation wRfx 02/05/24 * HIV Screen 4th Generation wRfx 02/05/24 * Lipid Panel 02/05/24 Radiology* CT Soft Tissue Neck w/ Contrast 11/12/23 [facility] evaluation + Plan note Future Appointments Appointment Date:05/16/2024 11:40:00 AM Scheduled Provider:Penelope CASAS DO, FAAFP Location:[facility] Appointment Type:FM Open Future Scheduled Tests Laboratory* HgbA1c 05/07/24 * HgbA1c 08/05/24 * HgbA1c 11/04/24 Radiology* CT Soft Tissue Neck w/ Contrast 11/12/23 [facility] evaluation + Plan note Future Appointments Appointment Date:05/16/2024 11:40:00 AM Scheduled Provider:Penelope CASAS DO, FAAFP Location:[facility] Appointment Type:FM Open Diagnostic Tests Pending * HIV Screen 4th Generation wRfx 02/23/24 Future Scheduled Tests Laboratory* HgbA1c 05/07/24 * HgbA1c 08/05/24 * HgbA1c 11/04/24 Radiology* CT Soft Tissue Neck w/ Contrast 11/12/23 [facility] evaluation + Plan note Future Appointments Appointment Date:05/16/2024 11:40:00 AM Scheduled Provider:Penelope CASAS DO, FAAFP Location:[facility] Appointment Type:FM Open Future Scheduled Tests Laboratory* HgbA1c 08/05/24 * HgbA1c 11/04/24 Radiology* CT Soft Tissue Neck w/ Contrast 11/12/23 [facility] evaluation + Plan note Future Appointments Appointment Date:05/16/2024 11:40:00 AM Scheduled Provider:Penelope CASAS DO, FAAFP Location:[facility] Appointment Type:FM Open Diagnostic Tests Pending * Urine Culture 03/01/24 Future Scheduled Tests Laboratory* HgbA1c 08/05/24 * HgbA1c 11/04/24 Radiology* CT Soft Tissue Neck w/ Contrast 11/12/23 [facility] evaluation + Plan note Future Appointments Appointment Date:07/07/2024 02:20:00 PM Scheduled Provider:Penelope CASAS DO, FAAFP Location:[facility] Appointment Type:FM Open Future Scheduled Tests Laboratory* HgbA1c 08/05/24 * HgbA1c 11/04/24 Radiology* CT Soft Tissue Neck w/ Contrast 11/12/23 [facility] evaluation + Plan note Future Appointments Appointment Date:09/09/2024 08:20:00 AM Scheduled Provider:Penelope CASAS DO, FAAFP Location:[facility] Appointment Type:FM Open Future Scheduled Tests Laboratory* HgbA1c 08/05/24 * HgbA1c 11/04/24 Radiology* CT Soft Tissue Neck w/ Contrast 11/12/23 [facility] evaluation note* Diagnosis Infective urethritis- Primary Urethritis, unspecified [facility] Diagnosis Primary hypercoagulable state (HCC) Primary hypercoagulable state CVA, old, speech/language deficit Speech and language deficit, unspecified, 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 Hyposmolality and/or hyponatremia documented in this encounter [facility] note* Diagnosis Primary hypercoagulable state (HCC) Primary hypercoagulable state CVA, old, speech/language deficit Speech and language deficit, unspecified, 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 Hyposmolality and/or hyponatremia documented in this encounter [facility] note* Diagnosis Primary hypercoagulable state (HCC)- Primary Primary hypercoagulable state CVA, old, speech/language deficit Speech and language deficit, unspecified, late effect of cerebrovascular disease Antiphospholipid antibody syndrome (HCC) Primary hypercoagulable state Anemia, unspecified type documented in this encounter [facility] note* Diagnosis Iron deficiency anemia secondary to blood loss (chronic) Iron deficiency anemia of Anemia of mother, complicating , childbirth, or the puerperium, unspecified as to episode of care documented in this encounter [facility] note* 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 Iron deficiency anemia of Anemia of mother, complicating , childbirth, or the puerperium, unspecified as to episode of care documented in this encounter [facility] note* Diagnosis Primary hypercoagulable state (HCC) Primary hypercoagulable state CVA, old, speech/language deficit Speech and language deficit, unspecified, 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 Hyposmolality and/or hyponatremia documented in this encounter [facility] note* 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 Iron deficiency anemia of Anemia of mother, complicating , childbirth, or the puerperium, unspecified as to episode of care documented in this encounter [facility] note* Diagnosis Primary hypercoagulable state (HCC) Primary hypercoagulable state CVA, old, speech/language deficit Speech and language deficit, unspecified, 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 Hyposmolality and/or hyponatremia documented in this encounter [facility] note* Diagnosis Primary hypercoagulable state (HCC)- Primary Primary hypercoagulable state 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, old, speech/language deficit Speech and language deficit, unspecified, late effect of cerebrovascular disease [facility] Diagnosis Primary hypercoagulable state (HCC) Primary hypercoagulable state CVA, old, speech/language deficit Speech and language deficit, unspecified, 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 Hyposmolality and/or hyponatremia [facility] Diagnosis Primary hypercoagulable state (HCC)- Primary Primary hypercoagulable state Iron deficiency anemia of Anemia of mother, complicating , childbirth, or the puerperium, unspecified as to episode of care Iron deficiency anemia secondary to blood loss (chronic) Vitamin D deficiency Unspecified vitamin D deficiency [facility] Diagnosis Primary hypercoagulable state (HCC)- Primary Primary hypercoagulable state Iron deficiency anemia secondary to blood loss (chronic) Vitamin D deficiency Unspecified vitamin D deficiency CVA, old, speech/language deficit Speech and language deficit, unspecified, late effect of cerebrovascular disease Antiphospholipid antibody syndrome (HCC) Primary hypercoagulable state [facility] Diagnosis Primary hypercoagulable state (HCC)- Primary Primary hypercoagulable state CVA, old, speech/language deficit Speech and language deficit, unspecified, late effect of cerebrovascular disease Hypercalcemia Vitamin D deficiency Unspecified vitamin D deficiency Iron deficiency anemia secondary to blood loss (chronic) Malaise and fatigue Other malaise and fatigue [facility]* Diagnosis Vitamin D deficiency- Primary Unspecified vitamin D deficiency 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) Antiphospholipid antibody syndrome (HCC) Primary hypercoagulable state Malaise and fatigue Other malaise and fatigue [facility] Diagnosis Vitamin D deficiency- Primary Unspecified vitamin D deficiency 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) [facility] 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 [facility]* Diagnosis Iron deficiency anemia of - Primary Anemia of mother, complicating , childbirth, or the puerperium, unspecified as to episode of care Iron deficiency anemia secondary to blood loss (chronic) [facility] Diagnosis Iron deficiency anemia of - Primary Anemia of mother, complicating , childbirth, or the puerperium, unspecified as to episode of care Iron deficiency anemia secondary to blood loss (chronic) [facility] 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 Vitamin D deficiency Unspecified vitamin D deficiency Malaise and fatigue Other malaise and fatigue documented in this [facility] Diagnosis Primary hypercoagulable state (HCC) Primary hypercoagulable state CVA, old, speech/language deficit Speech and language deficit, unspecified, 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 Hyposmolality and/or hyponatremia documented in this [facility] Diagnosis Missed menses , unspecified gestational age Encounter for supervision of normal first in first trimester Hypothyroidism (acquired) ([facility]/HCC) Unspecified hypothyroidism Low vitamin D level documented in this encounter [facility]* Diagnosis 14 weeks gestation of Second trimester state, incidental Confirm viability with history of miscarriage, ultrasound Encounter for routine screening for malformation using ultrasonics documented in this encounter [facility] HealthcareEvaluation noteNo assessment information availableLake[facility] Work Phone: Evaluation note* Diagnosis Primary hypercoagulable state (HCC)- Primary Primary hypercoagulable state CVA, old, speech/language deficit Speech and language deficit, unspecified, 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) Vitamin D deficiency Unspecified vitamin D deficiency Antiphospholipid antibody syndrome (HCC) Primary hypercoagulable state [facility] Diagnosis Follow-up visit after miscarriage Abnormal TSH History of thyroid disease documented in this encounter [facility] note* Diagnosis Vaginal bleeding Other specified noninflammatory disorder of vagina Dizziness Dizziness and giddiness Abnormal TSH Vaginal discharge Leukorrhea, not specified as infective Pelvic pain in female Unspecified symptom associated with female genital organs documented in this encounter [facility] note* Diagnosis Irregular menstrual cycle documented in this encounter [facility] note* Diagnosis Primary hypercoagulable state (HCC) Primary hypercoagulable state CVA, old, speech/language deficit Speech and language deficit, unspecified, 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 Hyposmolality and/or hyponatremia documented in this encounter [facility]* Diagnosis Antiphospholipid antibody positive- Primary Other and unspecified nonspecific immunological findings Iron deficiency anemia secondary to blood loss (chronic) Malaise and fatigue Other malaise and fatigue Vitamin D deficiency Unspecified vitamin D deficiency documented [facility] this encounter [facility]* Diagnosis Amenorrhea Absence of menstruation Missed menses , unspecified gestational age Encounter for supervision of normal first in first trimester Thyroid disease ([facility]/HCC) Unspecified disorder of thyroid documented in this encounter [facility] note* Diagnosis Gestational diabetes mellitus (GDM), antepartum, gestational diabetes method of control unspecified- Primary [facility]* Diagnosis Primary hypercoagulable state (HCC) Primary hypercoagulable state CVA, old, speech/language deficit Speech and language deficit, unspecified, 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 Hyposmolality and/or hyponatremia documented in this encounter [facility]* Diagnosis Primary hypercoagulable state (HCC)- Primary Primary hypercoagulable state CVA, old, speech/language deficit Speech and language deficit, unspecified, 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 Hyposmolality and/or hyponatremia Personal history of TIA (transient ischemic attack) Transient ischemic attack (TIA), and cerebral infarction without residual deficits documented [facility] this encounter [facility]* Diagnosis Second trimester (HHS-HCC) state, incidental 13 weeks gestation of ([facility]) Thyroid disease Unspecified disorder of thyroid Multigravida of advanced maternal age in second trimester ([facility]) Gestational diabetes mellitus (GDM), antepartum, gestational diabetes method of control unspecified([facility]) Elevated glucose tolerance test Impaired glucose tolerance test documented in this encounter [facility] note* Diagnosis Gestational diabetes mellitus (GDM), antepartum, gestational diabetes method of control unspecified- Primary documented in this encounter [facility]* Diagnosis Second trimester (HHS-HCC) state, incidental 16 weeks gestation of ([facility]) Screening, , for anatomic survey ([facility]) Encounter for anatomic survey Vaginal discharge Leukorrhea, not specified as infective Sinus headache Headache [facility] Diagnosis Insulin controlled gestational diabetes mellitus (GDM) in second trimester- Primary documented in this encounter [facility]* Diagnosis 19 weeks gestation of (HHS-HCC) Second trimester (HHS-HCC) state, incidental Thyroid disease Unspecified disorder of thyroid Multigravida of advanced maternal age in second trimester (HHS-HCC) Gestational diabetes mellitus (GDM), antepartum, gestational diabetes method of control unspecified([facility]HS[facility]HCC) [facility] Diagnosis Gestational diabetes mellitus (GDM) in second trimester controlled on oral hypoglycemic drug- Primary documented in this encounter [facility]* Diagnosis Antiphospholipid antibody positive- Primary Other and unspecified nonspecific immunological findings Iron deficiency anemia secondary to blood loss (chronic) Vitamin D deficiency Unspecified vitamin D deficiency Primary hypercoagulable state (HCC) Primary hypercoagulable state documented in this encounter [facility]* Diagnosis Gestational diabetes mellitus (GDM) in second trimester controlled on oral hypoglycemic drug- Primary documented in this encounter [facility]* Diagnosis Multigravida of advanced maternal age in second trimester- Primary Antiphospholipid syndrome complicating , antepartum Gestational diabetes mellitus (GDM) in second trimester controlled on oral hypoglycemic drug Insulin controlled gestational diabetes mellitus (GDM) in second trimester AMA (advanced maternal age) multigravida 35+, second trimester Hypothyroidism, unspecified type documented in this encounter [facility]* Diagnosis 22 weeks gestation [...] hyponatremia documented in this encounter [facility]* Diagnosis Multigravida of advanced [...] (GDM), antepartum, gestational diabetes method of control unspecified([facility]) Multigravida of advanced maternal age in second trimester ([facility]) H/O loss Lightheaded Dizziness and [...] (HHS-HCC) state, incidental 25 weeks gestation of ([facility]) Gestational diabetes mellitus (GDM), antepartum, gestational diabetes method of control unspecified([facility]) Anticoagulant long-term use Encounter for long-term (current) use of anticoagulants Antiphospholipid antibody positive Other and unspecified nonspecific immunological findings Antiphospholipid antibody syndrome ([facility]) Primary hypercoagulable state documented in this encounter [facility]Evaluation note* Diagnosis 27 weeks gestation of - Primary Multigravida of advanced maternal age in third trimester Gestational diabetes mellitus (GDM) in second trimester controlled on oral hypoglycemic drug Antiphospholipid syndrome complicating , antepartum Antiphospholipid syndrome Primary hypercoagulable state [facility] Diagnosis Third trimester (HHS-HCC) state, incidental 28 weeks gestation of ([facility]) Anemia complicating childbirth ([facility]) Anticoagulant long-term use Encounter for long-term (current) use of anticoagulants Antiphospholipid antibody positive Other and unspecified nonspecific immunological findings Blood pressure elevated without history of HTN Coagulation defect, unspecified ([facility]) documented in this encounter [facility]* [...] No data available for this section [facility] Discharge instructions No data available for this section [facility] HospitalInstructionsNot on filedocumented in this encounter [...] be sent through Care Everywhere. * Preeclampsia ([place]ib[place]) documented in [facility] System[facility]ructionsNot on file documented in this encounterProMedica Health SystemInstructionsNot on file documented in this encounterProMedica Health SystemInstructionsNot on file documented in this encounterProMedica Health SystemInstructionsNot on file documented in this encounterProMedica Health SystemInstructions* Attachments The following attachments cannot be sent through Care Everywhere. * Preeclampsia ([place]) documented in this encounterProMedica Health SystemInstructionsNot on file documented in this encounterProMedica Health SystemInstructionsNot on file documented in this encounterProMedica Health SystemInstructionsNot on file documented in this encounterProMedica Health SystemProgress note No data available for this section [facility]Reason [facility] (narrative) , pt reported hx of nasal polyps and deviated septum but never had surgery done Referred by: Shirlene YEBOAH, Lourdes Baltazar [facility] Reason for visit Narrative* Consultation (Urgent) - Pending ReviewSpecialtyDiagnoses / ProceduresReferred By ContactReferred To ContactRheumatology Diagnoses 22 weeks gestation of Antiphospholipid syndrome complicating , antepartum Mukul Noyola MD [address] [facility], [address] [place] [id number] Phone: tel: fax: Sam Callahan MD MPH [address] [id number] Phone: tel: fax: Referral IDStatusReasonStart DateExpiration DateVisits RequestedVisits [id number] Review Specialty Services Required [facility] Summary Purpose Family History No [...] a 30 minute post dose observation. Rate/Dose Nsfnyi8804/05/2022 2:44 PM ILZ577.67 mL/kvMhowjsixo55/07/2022 2:25 PM CGQ683 mL/hrNew Bag/Syringe/Wdgmpv2604/05/2022 1:52 PM POJ665 mg166.67 mL/hr Medication OrderMAR ActionAction DateDoseRateSite iron sucrose 300 mg in NaCl 0.9% 250 mL (VENOFER) 300 mg, INTRAVENOUS, at 166.67 mL/hr, Administer over 90 Minutes, ONCE, 1 dose, On Christie 04/20/22 at 1400, Please conduct a 30 minute post dose observation. New Bag/Syringe/Zoedph2804/20/2022 2:01 PM LQV497 mg166.67 mL/hr Additional Source Comments INFORMATION SOURCE (unrecogn ized section and content) DATE CREATED AUTHOR 10/22/2017 [facility] DATE CREATED AUTHOR AUTHOR'S ORGANIZ ATION 11/14/2017 [employer] DATE CREATED AUTHOR AUTHOR'S ORGANIZ ATION 06/18/2018 [facility] DATE CREATED AUTHOR AUTHOR'S ORGANIZ ATION 12/30/2021 [facility] DATE CREATED AUTHOR AUTHOR'S ORGANIZ ATION 06/09/2022 [facility] DATE CREATED AUTHOR AUTHOR'S ORGANIZ ATION 09/29/2023 [facility] DATE CREATED AUTHOR AUTHOR'S ORGANIZ ATION 12/03/2023 [facility] DATE CREATED AUTHOR AUTHOR'S ORGANIZ ATION 12/09/2023 [facility] DATE CREATED AUTHOR AUTHOR'S ORGANIZ ATION 12/10/2023 [facility] DATE CREATED AUTHOR AUTHOR'S ORGANIZ ATION 01/27/2024 [facility] DATE CREATED AUTHOR AUTHOR'S ORGANIZ ATION 02/24/2024 [facility] DATE CREATED AUTHOR AUTHOR'S ORGANIZ ATION 02/26/2024 [facility] DATE CREATED AUTHOR AUTHOR'S ORGANIZ ATION 02/28/2024 [facility] DATE CREATED AUTHOR AUTHOR'S ORGANIZ ATION 03/02/2024 [facility] DATE CREATED AUTHOR AUTHOR'S ORGANIZ ATION 03/03/2024 [facility] DATE CREATED AUTHOR AUTHOR'S ORGANIZ ATION 05/15/2024 [facility] DATE CREATED AUTHOR AUTHOR'S ORGANIZ ATION 05/17/2024 [facility] DATE CREATED AUTHOR AUTHOR'S ORGANIZ ATION 05/18/2024 [facility] DATE CREATED AUTHOR AUTHOR'S ORGANIZ ATION 05/19/2024 [facility] DATE CREATED AUTHOR AUTHOR'S ORGANIZ ATION 06/11/2024 [facility] DATE CREATED AUTHOR AUTHOR'S ORGANIZ ATION 06/17/2024 [facility] DATE CREATED AUTHOR AUTHOR'S ORGANIZ ATION 07/09/2024 [facility] DATE CREATED AUTHOR AUTHOR'S ORGANIZ ATION 07/12/2024 [facility] DATE CREATED AUTHOR AUTHOR'S ORGANIZ ATION 07/15/2024 [facility] DATE CREATED AUTHOR AUTHOR'S ORGANIZ ATION 08/24/2024 [facility] DATE CREATED AUTHOR AUTHOR'S ORGANIZ ATION 08/26/2024 [facility] DATE CREATED AUTHOR AUTHOR'S ORGANIZ ATION 09/01/2024 [facility] DATE CREATED AUTHOR AUTHOR'S ORGANIZ ATION 09/08/2024 [facility] DATE CREATED AUTHOR AUTHOR'S ORGANIZ ATION 09/11/2024 [facility] DATE CREATED AUTHOR AUTHOR'S ORGANIZ ATION 12/09/2024 [facility] DATE CREATED AUTHOR AUTHOR'S ORGANIZ ATION 01/18/2025 [facility] DATE CREATED AUTHOR AUTHOR'S ORGANIZ ATION 02/07/2025 [facility] DATE CREATED AUTHOR AUTHOR'S ORGANIZ ATION 02/13/2025 [facility] DATE CREATED AUTHOR AUTHOR'S ORGANIZ ATION 03/03/2025 [facility] DATE CREATED AUTHOR AUTHOR'S ORGANIZ ATION 03/11/[address] [facility] DATE CREATED AUTHOR AUTHOR'S ORGANOSEAS ATION 03/12/2025 [facility] Source Comments (unrecognize d section and content) In the event this informatio n is protected by the Federal Confidentiality of Alcohol and Drug Abuse Patient Records regulations: The Federal rules restrict any use of the information to criminally investigate or prosecute any alcohol or drug abuse patient.[facility] HospitalIn the event this information is protected by the Federal Confidentiality of Alcohol and Drug Abuse Patient Records regulations: The Federal rules restrict any use of the information to criminally investigate or prosecute any alcohol or drug abuse patient.[facility] HospitalIn the event this information is protected by the Federal Confidentiality of Alcohol and Drug Abuse Patient Records regulations: The Federal rules restrict any use of the information to criminally investigate or prosecute any alcohol or drug abuse patient.[facility] HospitalIn the event this information is protected by the Federal Confidentiality of Alcohol and Drug Abuse Patient Records regulations: The Federal rules restrict any use of the information to criminally investigate or prosecute any alcohol or drug abuse patient.[facility] HospitalIn the event this information is protected by the Federal Confidentiality of Alcohol and Drug Abuse Patient Records regulations: The Federal rules restrict any use of the information to criminally investigate or prosecute any alcohol or drug abuse patient.[facility] HospitalIn the event this information is protected by the Federal Confidentiality of Alcohol and Drug Abuse Patient Records regulations: The Federal rules restrict any use of the information to criminally investigate or prosecute any alcohol or drug abuse patient.[facility] HospitalIn the event this information is protected by the Federal Confidentiality of Alcohol and Drug Abuse Patient Records regulations: The Federal rules restrict any use of the information to criminally investigate or prosecute any alcohol or drug abuse patient.[facility] HospitalIn the event this information is protected by the Federal Confidentiality of Alcohol and Drug Abuse Patient Records regulations: The Federal rules restrict any use of the information to criminally investigate or prosecute any alcohol or drug abuse patient.[facility] [facility] HospitalIn the event this information is protected by the Federal Confidentiality of Alcohol and Drug Abuse Patient Records regulations: The Federal rules restrict any use of the information to criminally investigate or prosecute any alcohol or drug abuse patient.[facility] HospitalIn the event this information is protected by the Federal Confidentiality of Alcohol and Drug Abuse Patient Records regulations: The Federal rules restrict any use of the information to criminally investigate or prosecute any alcohol or drug abuse patient.[facility] HospitalIn the event this information is protected by the Federal Confidentiality of Alcohol and Drug Abuse Patient Records regulations: The Federal rules restrict any use of the information to criminally investigate or prosecute any alcohol or drug abuse patient.[facility] HospitalIn the event this information is protected by the Federal Confidentiality of Alcohol and Drug Abuse Patient Records regulations: The Federal rules restrict any use of the information to criminally investigate or prosecute any alcohol or drug abuse patient.[facility] HospitalIn the event this information is protected by the Federal Confidentiality of Alcohol and Drug Abuse Patient Records regulations: The Federal rules restrict any use of the information to criminally investigate or prosecute any alcohol or drug abuse patient.[facility] HospitalIn the event this information is protected by the Federal Confidentiality of Alcohol and Drug Abuse Patient Records regulations: The Federal rules restrict any use of the information to criminally investigate or prosecute any alcohol or drug abuse patient.[facility] HospitalIn the event this information is protected by the Federal Confidentiality of Alcohol and Drug Abuse Patient Records regulations: The Federal rules restrict any use of the information to criminally investigate or prosecute any alcohol or drug abuse patient.[facility] HospitalIn the event this information is protected by the Federal Confidentiality of Alcohol and Drug Abuse Patient Records regulations: The Federal rules restrict any use of the information to criminally investigate or prosecute any alcohol or drug abuse patient.[facility] HospitalIn the event this information is protected by the Federal Confidentiality of Alcohol and Drug Abuse Patient Records regulations: The Federal rules restrict any use of the information to criminally investigate or prosecute any alcohol or drug abuse patient.[facility] HospitalIn the event this information is protected by the Federal Confidentiality of Alcohol and Drug Abuse Patient Records regulations: The Federal rules restrict any use of the information to criminally investigate or prosecute any alcohol or drug abuse patient.[facility] HospitalIn the event this information is protected by the Federal Confidentiality of Alcohol and Drug Abuse Patient Records regulations: The Federal rules restrict any use of the information to criminally investigate or prosecute any alcohol or drug abuse patient.[facility] HospitalIn the event this information is protected by the Federal Confidentiality of Alcohol and Drug Abuse Patient Records regulations: The Federal rules restrict any use of the information to criminally investigate or prosecute any alcohol or drug abuse patient.[facility] HospitalIn the event this information is protected by the Federal Confidentiality of Alcohol and Drug Abuse Patient Records regulations: The Federal rules restrict any use of the information to criminally investigate or prosecute any alcohol or drug abuse patient.[facility] HospitalIn the event this information is protected by the Federal Confidentiality of Alcohol and Drug Abuse Patient Records regulations: The Federal rules restrict any use of the information to criminally investigate or prosecute any alcohol or drug abuse patient.[facility] HospitalIn the event this information is protected by the Federal Confidentiality of Alcohol and Drug Abuse Patient Records regulations: The Federal rules restrict any use of the information to criminally investigate or prosecute any alcohol or drug abuse patient.[facility] HospitalIn the event this information is protected by the Federal Confidentiality of Alcohol and Drug Abuse Patient Records regulations: The Federal rules restrict any use of the information to criminally investigate or prosecute any alcohol or drug abuse patient.[facility] HospitalIn the event this information is protected by the Federal Confidentiality of Alcohol and Drug Abuse Patient Records regulations: The Federal rules restrict any use of the information to criminally investigate or prosecute any alcohol or drug abuse patient.[facility] HospitalIn the event this information is protected by the Federal Confidentiality of Alcohol and Drug Abuse Patient Records regulations: The Federal rules restrict any use of the information to criminally investigate or prosecute any alcohol or drug abuse patient.[facility] HospitalIn the event this information is protected by the Federal Confidentiality of Alcohol and Drug Abuse Patient Records regulations: The Federal rules restrict any use of the information to criminally investigate or prosecute any alcohol or drug abuse patient.[facility] HospitalIn the event this information is protected by the Federal Confidentiality of Alcohol and Drug Abuse Patient Records regulations: The Federal rules restrict any use of the information to criminally investigate or prosecute any alcohol or drug abuse patient.[facility] HospitalIn the event this information is protected by the Federal Confidentiality of Alcohol and Drug Abuse Patient Records regulations: The Federal rules restrict any use of the information to criminally investigate or prosecute any alcohol or drug abuse patient.[facility] HospitalIn the event this information is protected by the Federal Confidentiality of Alcohol and Drug Abuse Patient Records regulations: The Federal rules restrict any use of the information to criminally investigate or prosecute any alcohol or drug abuse patient.[facility] HospitalIn the event this information is protected by the Federal Confidentiality of Alcohol and Drug Abuse Patient Records regulations: The Federal rules restrict any use of the information to criminally investigate or prosecute any alcohol or drug abuse patient.[facility] HospitalIn the event this information is protected by the Federal Confidentiality of Alcohol and Drug Abuse Patient Records regulations: The Federal rules restrict any use of the information to criminally investigate or prosecute any alcohol or drug abuse patient.[facility] HospitalIn the event this information is protected by the Federal Confidentiality of Alcohol and Drug Abuse Patient Records regulations: The Federal rules restrict any use of the information to criminally investigate or prosecute any alcohol or drug abuse patient.[facility] HospitalIn the event this information is protected by the Federal Confidentiality of Alcohol and Drug Abuse Patient Records regulations: The Federal rules restrict any use of the information to criminally investigate or prosecute any alcohol or drug abuse patient.[facility] HospitalIn the event this information is protected by the Federal Confidentiality of Alcohol and Drug Abuse Patient Records regulations: The Federal rules restrict any use of the information to criminally investigate or prosecute any alcohol or drug abuse patient.[facility] HospitalIn the event this information is protected by the Federal Confidentiality of Alcohol and Drug Abuse Patient Records regulations: The Federal rules restrict any use of the information to criminally investigate or prosecute any alcohol or drug abuse patient.[facility] HospitalIn the event this information is protected by the Federal Confidentiality of Alcohol and Drug Abuse Patient Records regulations: The Federal rules restrict any use of the information to criminally investigate or prosecute any alcohol or drug abuse patient.[facility] HospitalIn the event this information is protected by the Federal Confidentiality of Alcohol and Drug Abuse Patient Records regulations: The Federal rules restrict any use of the information to criminally investigate or prosecute any alcohol or drug abuse patient.[facility] HospitalIn the event this information is protected by the Federal Confidentiality of Alcohol and Drug Abuse Patient Records regulations: The Federal rules restrict any use of the information to criminally investigate or prosecute any alcohol or drug abuse patient.[facility] HospitalIn the event this information is protected by the Federal Confidentiality of Alcohol and Drug Abuse Patient Records regulations: The Federal rules restrict any use of the information to criminally investigate or prosecute any alcohol or drug abuse patient.[facility] HospitalIn the event this information is protected by the Federal Confidentiality of Alcohol and Drug Abuse Patient Records regulations: The Federal rules restrict any use of the information to criminally investigate or prosecute any alcohol or drug abuse patient.[facility] HospitalIn the event this information is protected by the Federal Confidentiality of Alcohol and Drug Abuse Patient Records regulations: The Federal rules restrict any use of the information to criminally investigate or prosecute any alcohol or drug abuse patient.[facility] HospitalIn the event this information is protected by the Federal Confidentiality of Alcohol and Drug Abuse Patient Records regulations: The Federal rules restrict any use of the information to criminally investigate or prosecute any alcohol or drug abuse patient.[facility] HospitalIn the event this information is protected by the Federal Confidentiality of Alcohol and Drug Abuse Patient Records regulations: The Federal rules restrict any use of the information to criminally investigate or prosecute any alcohol or drug abuse patient.[facility] HospitalIn the event this information is protected by the Federal Confidentiality of Alcohol and Drug Abuse Patient Records regulations: The Federal rules restrict any use of the information to criminally investigate or prosecute any alcohol or drug abuse patient.[facility] HospitalIn the event this information is protected by the Federal Confidentiality of Alcohol and Drug Abuse Patient Records regulations: The Federal rules restrict any use of the information to criminally investigate or prosecute any alcohol or drug abuse patient.[facility] HospitalIn the event this information is protected by the Federal Confidentiality of Alcohol and Drug Abuse Patient Records regulations: The Federal rules restrict any use of the information to criminally investigate or prosecute any alcohol or drug abuse patient.[facility] HospitalIn the event this information is protected by the Federal Confidentiality of Alcohol and Drug Abuse Patient Records regulations: The Federal rules restrict any use of the information to criminally investigate or prosecute any alcohol or drug abuse patient.[facility] HospitalIn the event this information is protected by the Federal Confidentiality of Alcohol and Drug Abuse Patient Records regulations: The Federal rules restrict any use of the information to criminally investigate or prosecute any alcohol or drug abuse patient.[facility] HospitalIn the event this information is protected by the Federal Confidentiality of Alcohol and Drug Abuse Patient Records regulations: The Federal rules restrict any use of the information to criminally investigate or prosecute any alcohol or drug abuse patient.[facility] HospitalIn the event this information is protected by the Federal Confidentiality of Alcohol and Drug Abuse Patient Records regulations: The Federal rules restrict any use of the information to criminally investigate or prosecute any alcohol or drug abuse patient.[facility] HospitalIn the event this information is protected by the Federal Confidentiality of Alcohol and Drug Abuse Patient Records regulations: The Federal rules restrict any use of the information to criminally investigate or prosecute any alcohol or drug abuse patient.[facility] HospitalIn the event this information is protected by the Federal Confidentiality of Alcohol and Drug Abuse Patient Records regulations: The Federal rules restrict any use of the information to criminally investigate or prosecute any alcohol or drug abuse patient.[facility] HospitalIn the event this information is protected by the Federal Confidentiality of Alcohol and Drug Abuse Patient Records regulations: The Federal rules restrict any use of the information to criminally investigate or prosecute any alcohol or drug abuse patient.[facility] HospitalIn the event this information is protected by the Federal Confidentiality of Alcohol and Drug Abuse Patient Records regulations: The Federal rules restrict any use of the information to criminally investigate or prosecute any alcohol or drug abuse patient.[facility] Care Teams (unrecognized sec tion and content) Team MemberRelationshipSpecialtyStart DateEnd Date Humaira Gaviria MD [address] [place] [id number] PCP - GeneralInternal Medicine07/05/18 Jonny Wilcox MD [address] [facility] [place] [address] Primary Staff PhysicianCardiology07/16/18Team MemberRelationshipSpecialtyStart DateEnd Date Humaira Gaviria MD [address] [place] [address] PCP - GeneralInternal Medicine07/05/18 Jonny Wilcox MD [address] [place] [address] Primary Staff PhysicianCardiology07/16/18Team MemberRelationshipSpecialtyStart DateEnd Date Humaira Gaviria MD [address] [place] [address] PCP - GeneralInternal Medicine07/05/18 Jonny Wilcox MD [address] [place] [address] Primary Staff PhysicianCardiology07/16/18Team MemberRelationshipSpecialtyStart DateEnd Date Humaira Gaviria MD [address] [facility] [address] PCP - GeneralInternal Medicine07/05/18 Jonny Wilcox MD [address] [place] [address] Primary Staff PhysicianCardiology07/16/18Team MemberRelationshipSpecialtyStart DateEnd Date Humaira Gaviria MD [address] [facility] [address] PCP - GeneralInternal Medicine07/05/18 Jonny Wilcox MD [address] [place] [address] Primary Staff PhysicianCardiology07/16/18 [place] [address] [place] [address] PhysicianHematology/Oncology09/14/21 Davida Restrepo RN [address] [place] [address] Specialty Care CoordinatorHematology/Oncology09/14/21Team MemberRelationship SpecialtyStart DateEnd Date Penelope Casas [facility] [place] [address] PCP - GeneralFamily Medicine10/04/20Team MemberRelationshipSpecialtyStart DateEnd Date Humaira Gaviria MD [address] [facility] [place] [address] PCP - GeneralInternal Medicine3/8/19 Jonny Wilcox MD [address] [place] [address] Primary Staff PhysicianCardiology07/16/18 [place] [address] [place] [address] PhysicianHematology/Oncology09/14/21 Davida Restrepo, RN [address] [place] [address] Specialty Care CoordinatorHematology/Oncology09/14/21Te MemberRelationship SpecialtyStart DateEnd Date Penelope Casas, [address] [place] [address] PCP - GeneralFamily [id number]/3/22 Jonny Wilcox MD [address] [place] [address] Primary Staff PhysicianCardiology07/16/18 [place] [address] [place] [address] PhysicianHematology/Oncology09/14/21 Davida Restrepo, RN [address] [place] [address] Specialty Care CoordinatorHematology/Oncology09/14/21Te MemberRelationship SpecialtyStart DateEnd Date Penelope Casas DO [address] [place] [address] PCP - GeneralFamily Dtihwmwv92/3/22 Jonny Wilcox MD [address] [place] [address] Primary Staff PhysicianCardiology07/16/18 [place] [address] [place] [address] PhysicianHematology/Oncology09/14/21 Davida Restrepo, RN [address] [place] [address] Specialty Care CoordinatorHematology/Oncology09/14/21Te MemberRelationship SpecialtyStart DateEnd Date Penelope Casas, DO [address] [place] [address] PCP - GeneralFamily Qlqcpqly38/3/22 Jonny Wilcox MD [address] [place] [address] Primary Staff PhysicianCardiology07/16/18 [place] [address] [place] [address] PhysicianHematology/Oncology09/14/21 Davida Restrepo, RN [address] [place] [address] Specialty Care CoordinatorHematology/Oncology09/14/21Te MemberRelationship SpecialtyStart DateEnd Date Penelope Casas, DO [address] [place] [address] PCP - Generalmily Qtfciodx83/3/22 Jonny Wilcox MD [address] [place] [address] Primary Staff PhysicianCardiology07/16/18 [place] [address] [place] [address] PhysicianHematology/Oncology09/14/21 Davida Restrepo, RN [address] [place] [address] Specialty Care CoordinatorHematology/Oncology09/14/21Te MemberRelationship SpecialtyStart DateEnd [facility] Penelope Casas, DO [address] [place] [address] PCP - GeneralFamily Cbdsuafw48/3/22 Jonny Wilcox MD [address] [place] [address] Primary Staff PhysicianCardiology07/16/18 [place] [address] [place] [address] PhysicianHematology/Oncology09/14/21 Davida Restrepo, RN [address] [place] [address] Specialty Care CoordinatorHematology/Oncology09/14/21Te MemberRelationship SpecialtyStart DateEnd [facility]ly [facility] Penelope Casas, DO [address] [place] [address] PCP - GeneralFamily Dyebtmsx89/3/22 Jonny Wilcox MD [address] [place] [address] Primary Staff PhysicianCardiology07/16/18 [place] [address] [place] [address] PhysicianHematology/Oncology09/14/21 Davida Restrepo, RN [address] [place] [address] Specialty Care CoordinatorHematology/Oncology09/14/21Te MemberRelationship SpecialtyStart DateAd[facility]health Penelope Casas, DO [address] [place] [address] PCP - GeneralFamily Ihqhwfkf42/3/22 Jonny Wilcox MD [address] [place] [address] Primary Staff PhysicianCardiology07/16/18 [place] [address] [place] [address] PhysicianHematology/Oncology09/14/21 Davida Restrepo, RN [address] [place] [address] Specialty Care CoordinatorHematology/Oncology09/14/21Te MemberRelationship SpecialtyStart DateEnd Date Penelope Casas, [address] [place] [address] PCP - GeneralFamily Bfhlpxyn79/3/22 Jonny Wilcox MD [address] [place] [address] Primary Staff PhysicianCardiology07/16/18 [place] [address] [place] [address] PhysicianHematology/Oncology09/14/21 Davida Restrepo, MARSHA [address] [place] [address] Specialty Care CoordinatorHematology/Oncology09/14/21Te MemberRelationship SpecialtyStart DateEnd Date Penelope Casas, DO [address] [place] [address] PCP - Generalmily Nqilspcj01/3/22 Jonny Wilcox MD [address] [place] [address] Primary Staff PhysicianCardiology07/16/18 [place] [address] [place] [address] PhysicianHematology/Oncology09/14/21 Davida Restrepo RN [address] [place], [place] [id number] Specialty Care CoordinatorHematology/Oncology09/14/21Team MemberRelationship SpecialtyStart DateEnd Date Penelope Casas DO [address] [place] [address] PCP - Generalmily Bongidko77/3/22 Jonny Wilcox MD [address] [place] [address] Primary Staff PhysicianCardiology07/16/18 [place] [address] [place] [address] PhysicianHematology/Oncology09/14/21 Davida Restrepo RN [address] [place] [address] Specialty Care CoordinatorHematology/Oncology09/14/21Te MemberRelationship SpecialtyStart DateEnd Date Penelope Casas DO [address] [place] [address] [facility] Ajnogqyx15/3/22 Jonny Wilcox MD [address] [place] [address] Primary Staff PhysicianCardiology07/16/18 [place] [address] [place] [address] PhysicianHematology/Oncology09/14/21 Davida Restrepo RN [address] [place] [address] Specialty Care CoordinatorHematology/Oncology09/14/21Team MemberRelationship Specialtyart DateEnd Penelope Casas DO [address] [place] [address] PCP - GeneralFamily Wxdutziv26/3/22 Jonny Wilcox MD [address] [place] [address] Primary Staff PhysicianCardiology07/16/18 [place] [address] [place] [address] PhysicianHematology/Oncology09/14/21 Davida Restrepo RN [address] [place] [address] Specialty Care CoordinatorHematology/Oncology09/14/21Te MemberRelationship SpecialtyStart DateEnd Date Penelope Casas DO [address] [place] [address] PCP - Generalmily Cjiqenoa20/3/22 Jonny Wilcox MD [address] [place] [address] Primary Staff PhysicianCardiology07/16/18 [place] [address] [place] [address] PhysicianHematology/Oncology09/14/21 Davida Restrepo RN [address] [place] [address] Specialty Care CoordinatorHematology/Oncology09/14/21Team MemberRelationship SpecialtyStart DateEnd Date Penelope Casas DO [address] [facility] [place] [address] [facility] Troayrgu00/3/22 Jonny Wilcox MD [address] [place] [address] Primary Staff PhysicianCardiology07/16/18 [place] [address] [place] [address] PhysicianHematology/Oncology09/14/21 Davida Restrepo, RN [address] [place] [address] Specialty Care CoordinatorHematology/Oncology09/14/21Team MemberRelationship SpecialtyStart DateEnd Date Penelope Casas DO [address] [facility] [place] [address] PCP - [facility] Qkexawmf42/3/22 Jonny Wilcox MD [address] [place] [address] Primary Staff PhysicianCardiology07/16/18 [place] [address] [place] [address] PhysicianHematology/Oncology09/14/21 Davida Restrepo RN [address] [place], [place] [address] Specialty Care CoordinatorHematology/Oncology09/14/21Team MemberRelationship SpecialtyStart DateEnd Date Penelope Casas DO [address] [facility] [place] [place] [address] PCP - Generalmily Kikojbre88/3/22 Jonny Wilcox MD [address] [place] [address] Primary Staff PhysicianCardiology07/16/18 [place] [address] [place] [address] PhysicianHematology/Oncology09/14/21 Davida Restrepo, RN [address] [place] [address] Specialty Care CoordinatorHematology/Oncology09/14/21Team MemberRelationship SpecialtyStart DateEnd Date Penelope Casas DO [address] [facility] [place] [place] [address] PCP - Generalmily Dphngafx47/3/22 Jonny Wilcox MD [address] [place] [address] Primary Staff PhysicianCardiology07/16/18 [place] [address] [place] [address] PhysicianHematology/Oncology09/14/21 Davida Restrepo, RN [address] [place] [address] Specialty Care CoordinatorHematology/Oncology09/14/21Team MemberRelationship SpecialtyStart DateEnd Date Penelope Casas DO [address] [facility] [place] [address] PCP - GeneralFamily Jvwlxcsx46/3/22 Jonny Wilcox MD [address] [place] [address] Primary Staff PhysicianCardiology07/16/18 [place] [address] [place] [address] PhysicianHematology/Oncology09/14/21 Davida Restrepo, MARSHA [address] [place] [address] Specialty Care CoordinatorHematology/Oncology09/14/21Team MemberRelationship SpecialtyStart DateEnd Date Penelope Casas DO [address] [facility] [place] [address] PCP - Generalmily Qgwpkcxg76/3/22 Jonny iWlcox MD [address] [place] [address] Primary Staff PhysicianCardiology07/16/18 [place] [address] [place] [address] PhysicianHematology/Oncology09/14/21 Davida Restrepo RN [address] [facility] [place] [address] Specialty Care CoordinatorHematology/Oncology09/14/21Team MemberRelationship SpecialtyStart DateEnd Date Penelope Casas DO [address] [place] [address] PCP - GeneralFamily Ozoaaeil26/3/22 Jonny Wilcox MD [address] [facility] [place] [address] Primary Staff PhysicianCardiology07/16/18 [place] [address] [place] [address] PhysicianHematology/Oncology09/14/21 Davida Restrepo RN [address] [facility] [place] [address] Specialty Care CoordinatorHematology/Oncology09/14/21Team MemberRelationship SpecialtyStart DateEnd Date Penelope Casas DO [address] [place] [address] PCP - GeneralFamily Helsjbeg86/3/22 Jonny Wilcox MD [address] [place] [address] Primary Staff PhysicianCardiology07/16/18 [place] [address] [place] [address] PhysicianHematology/Oncology09/14/21 Davida Restrepo RN [address] [facility] [place] [address] Specialty Care CoordinatorHematology/Oncology09/14/21Te MemberRelationship SpecialtyStart DateEnd Date Penelope Casas DO [address] [facility] [place] [address] PCP - GeneralFamily Wcrxztdb81/3/22 Jonny Wilcox MD [address] [place] [address] Primary Staff PhysicianCardiology07/16/18 [place] [address] [place] [address] PhysicianHematology/Oncology09/14/21 Davida Restrepo, MARSHA [address] [place] [address] Specialty Care CoordinatorHematology/Oncology09/14/21Team MemberRelationship SpecialtyStart DateEnd Date Penelope Casas DO [address] [facility] [place] [place] [address] [facility] Zfxsmqfo83/3/22 Jonny Wiclox MD [address] [place] [address] Primary Staff PhysicianCardiology07/16/18 [place] [address] [place] [address] PhysicianHematology/Oncology09/14/21 Davida Restrepo RN [address] [place] [address] Specialty Care CoordinatorHematology/Oncology09/14/21Team MemberRelationship SpecialtyStart DateEnd Date Penelope Casas DO [address] [facility] [place] [address] PCP - GeneralFamily Mcxloips84/3/22 Jonny Wilcox MD [address] [place] [address] Primary Staff PhysicianCardiology07/16/18 [place] [address] [place] [address] PhysicianHematology/Oncology09/14/21 Davida Restrepo, RN [address] [place] [address] Specialty Care CoordinatorHematology/Oncology09/14/21Team MemberRelationship SpecialtyStart DateEnd Date Penelope Casas MD [address] [place] [place] [address] PCP - GeneralFamily Medicine11/07/23Team MemberRelationshipSpecialtyStart DateEnd Date Penelope Casas MD [address] [place] [address] PCP - GeneralFamily Medicine11/07/23Team MemberRelationshipSpecialtyStart DateEnd Date Penelope Casas MD [address] [place] [address] PCP - Generalmily Medicine11/07/23Team MemberRelationshipSpecialtyStart DateEnd Date Penelope Casas MD [address] [place] [address] PCP - Generalmily Medicine11/07/23Team MemberRelationshipSpecialtyStart DateEnd Date Penelope Casas MD [address] [place] [address] PCP - Generalmily Medicine11/07/23 Team Status: Inactive Member Role Status Dates Wilton Herrmann DO Attending Provider Active Start : May 10, 2024 End: May 10, 2024Team MemberRelationshipSpecialtyStart DateEnd Date Penelope Casas DO [address] [place] [address] PCP - GeneralFamily Pcelzwhi47/3/22 Jonny Wilcox MD [address] [place], [place] [address] Primary Staff PhysicianCardiology07/16/18 [place] [address] [place], [place] [address] PhysicianHematology/Oncology09/14/21 Davida Restrepo RN [address] [place], [place] [address] Specialty Care CoordinatorHematology/Oncology09/14/21Team MemberRelationship SpecialtyStart DateEnd Date Penelope Casas MD [address] [place] [id number] PCP - Generalmily Medicine11/07/23Team MemberRelationshipSpecialtyStart DateEnd Date Penelope Casas MD [address] [place] [address] PCP - Generalmily Medicine11/07/23Team MemberRelationshipSpecialtyStart DateEnd Date Penelope Casas MD [address] [place] [address] PCP - GeneralUniversity [facility] Iowa Hospitals And Clinicsly Medicine11/07/23Team MemberRelationshipSpecialtyStart DateEnd Date Penelope Casas MD [address] [place] [address] PCP - GeneralFamily Medicine11/07/23Team MemberRelationshipSpecialtyStart DateEnd Date Penelope Casas DO [address] [place] [address] PCP - GeneralFamily Kesavfbt23/3/22 Jonny Wilcox MD [address] [place] [address] Primary Staff PhysicianCardiology07/16/18 [place] [address] [place] [address] PhysicianHematology/Oncology09/14/21 Davida Restrepo, MARSHA [address] [place] [address] Specialty Care CoordinatorHematology/Oncology09/14/21Team MemberRelationship SpecialtyStart DateEnd Date Penelope Casas MD [address] [facility] [place] [address] PCP - GeneralFamily Medicine11/07/23Team MemberRelationshipSpecialtyStart DateEnd Date Penelope Casas MD [address] [facility] [place] [address] PCP - GeneralFamily Medicine11/07/23Team MemberRelationshipSpecialtyStart DateEnd Date Penelope Casas DO PCP - GeneralFamily Medicine07/07/19Team MemberRelationshipSpecialtyStart DateEnd Date Penelope Casas DO PCP - GeneralFamily Medicine07/07/19Team MemberRelationshipSpecialtyStart DateEnd Date Penelope Casas MD [address] [place] [address] PCP - GeneralFamily Medicine11/07/23Team MemberRelationshipSpecialtyStart DateEnd Date Penelope Casas DO PCP - GeneralFamily Medicine07/07/19Team MemberRelationshipSpecialtyStart DateEnd Date Penelope Casas DO PCP - GeneralFamily Medicine07/07/19Team MemberRelationshipSpecialtyStart DateEnd Date Penelope Casas DO [address] [facility] [place] [address] PCP - GeneralFamily Dyswswrh72/3/22 Jonny Wilcox MD [address] [place] [address] Primary Staff PhysicianCardiology07/16/18 [place] [address] [place] [address] PhysicianHematology/Oncology09/14/21 Davida Restrepo, MARSHA [address] [place] [address] Specialty Care CoordinatorHematology/Oncology09/14/21Team MemberRelationship SpecialtyStart DateEnd Date Penelope Casas DO PCP - GeneralFamily Medicine07/07/19Team MemberRelationshipSpecialtyStart DateEnd Date Penelope Casas MD [address] [place] [address] PCP - GeneralFamily Medicine11/07/23Team MemberRelationshipSpecialtyStart DateEnd Date Penelope Casas MD [address] [place] [address] PCP - GeneralFamily Medicine11/07/23Team MemberRelationshipSpecialtyStart DateEnd Date Penelope Casas DO PCP - GeneralFamily Medicine07/07/19Team MemberRelationshipSpecialtyStart DateEnd Date Penelope Casas DO PCP - GeneralFamily Medicine07/07/19Team MemberRelationshipSpecialtyStart DateEnd Date Penelope Casas MD [address] [place] [address] PCP - GeneralFamily Medicine11/07/23Team MemberRelationshipSpecialtyStart DateEnd Date Penelope Casas MD [address] [place] [facility] [place] [address] PCP - GeneralFamily Medicine11/07/23Team MemberRelationshipSpecialtyStart DateEnd Date Penelope Casas DO PCP - GeneralFamily Medicine07/07/19Team MemberRelationshipSpecialtyStart DateEnd Date Penelope Casas DO [address] [place] [address] PCP - GeneralFamily Yeqszrxd79/3/22 Jonny Wilcox MD [address] [place] [address] Primary Staff PhysicianCardiology07/16/18 [place] [address] [place], [place] [address] PhysicianHematology/Oncology09/14/21 Davida Restrepo, MARSHA [address] [place] [address] Specialty Care CoordinatorHematology/Oncology09/14/21Team MemberRelationship SpecialtyStart DateEnd Date Penelope Casas DO PCP - GeneralFamily Medicine07/07/19Team MemberRelationshipSpecialtyStart DateEnd Date Penelope Casas DO PCP - GeneralFamily Medicine07/07/19Team MemberRelationshipSpecialtyStart DateEnd Date Penelope Casas DO PCP - GeneralFamily Medicine07/07/19Team MemberRelationshipSpecialtyStart DateEnd Date Penelope Casas DO PCP - GeneralFamily Medicine07/07/19Team MemberRelationshipSpecialtyStart DateEnd Date Penelope Casas DO PCP - GeneralFamily Medicine07/07/19Team MemberRelationshipSpecialtyStart DateEnd Date Penelope Casas MD [address] [place] [address] PCP - GeneralFamily Medicine11/07/23Team MemberRelationshipSpecialtyStart DateEnd Date Penelope Casas DO PCP - GeneralFamily Medicine07/07/19Team MemberRelationshipSpecialtyStart DateEnd Date Penelope Casas DO PCP - GeneralFamily Medicine07/07/19Team MemberRelationshipSpecialtyStart DateEnd Date Penelope Casas DO PCP - GeneralFamily Medicine07/07/19Team MemberRelationshipSpecialtyStart DateEnd Date Penelope Casas MD [address] [place] [address] PCP - GeneralFamily Medicine11/07/23Team MemberRelationshipSpecialtyStart DateEnd Date Penelope Casas DO PCP - GeneralFamily Medicine07/07/19Team MemberRelationshipSpecialtyStart DateEnd Date Penelope Casas DO PCP - GeneralFamily Medicine07/07/19Team MemberRelationshipSpecialtyStart DateEnd Date Penelope Casas MD [address] [place] [address] PCP - GeneralFamily Medicine11/07/23Team MemberRelationshipSpecialtyStart DateEnd Date Penelope Casas MD [address] [place] [address] PCP - Generalmily Medicine11/07/23Team MemberRelationshipSpecialtyStart DateEnd Date Penelope Casas MD [address] [place] [address] PCP - Generalmily Medicine11/07/23Team MemberRelationshipSpecialtyStart DateEnd Date Penelope Casas MD [address] [place] [address] PCP - Generalmily Medicine11/07/23Team MemberRelationshipSpecialtyStart DateEnd Date Penelope Casas MD [address] [place] [address] PCP - Generalmily Medicine11/07/23Team MemberRelationshipSpecialtyStart DateEnd Date Penelope Csaas MD [address] [place] [address] PCP - Generalmily Medicine11/07/23Team MemberRelationshipSpecialtyStart DateEnd Date Penelope Casas MD [address] [place] [address] PCP - Generalmily Medicine11/07/23Team MemberRelationshipSpecialtyStart DateEnd Date Penelope Casas MD [address] [facility] [place] [address] PCP - GeneralFamily Medicine11/07/23 Reason for Visit (unrecogniz ed section and content) ReasonCommentsFuture AppointmentReasonCommentsPatient QuestionReasonComments Medication QuestionReasonOnset DateCommentsRefill Nbtaoki13/13/2022ReasonOnset DateCommentsRefill Ticwebc13/02/2022ReasonCommentsHypercoagulable state6 month follow upReasonCommentsPrimary hypercoagulable state8 week follow upReason CommentsResultsReasonCommentsAppointmentPatient QuestionMedication Question OrdersSpecialtyDiagnoses / ProceduresReferred By ContactReferred To Contact Diagnoses Iron deficiency anemia secondary to blood loss (chronic) Iron deficiency anemia of Procedures INJECTION, FERRIC DERISOMALTOSE, 10 MG Kristofer Calix MD [address] [place] [address] [place] [address] [address]w [address] [place] [address] Referral IDStatusKelseyasonBronx DateExpiration DateVisits RequestedVisits [id number]/7/[id number]iy Request SpecialtyDiagnoses / ProceduresReferred By ContactReferred To Contact Diagnoses Iron deficiency anemia secondary to blood loss (chronic) Iron deficiency anemia of Procedures IRON SUCROSE INJECTION PER 1 MG Kristofer Calix MD [address] [place] [address] [place] [address] [address]w [address] [place] [address] Referral IDStatusKelseyasonStart DateExpiration DateVisits RequestedVisits [id number]/28/20221/1/[id number] DateCommentsRefill Mdisugb0007/03/2022ReasonCommentsAnemiaFollow upReasonCommentsOrdersReason CommentsEstablished PatientReasonCommentsAppointmentReasonCommentsLab Orders ReasonCommentsPrimary hypercoagulable state (HCC)Follow upReasonComments Appointment RescheduledSpecialtyDiagnoses / ProceduresReferred By Contact Referred To Contact Diagnoses Iron deficiency anemia of Iron deficiency anemia secondary to blood loss (chronic) Procedures IRON SUCROSE INJECTION PER 1 MG Kristofer Calix MD [address] [place] [address] [place] [address] [address] [place] [address] Referral IDStatusReasonStart DateExpiration DateVisits RequestedVisits [id number]/8/20241/5/758414SggzceQsmyz DateCommentsRefill Pmuicyg1811/29/2023easonCommentsAmenorrheaReasonOnset DateCommentsRefill Request 4ReasonCommentsRoutine VisitReasonCommentsPatient UpdateReason CommentsAnemiafollowupReasonCommentsfollow up miscarriageReasonCommentsVaginal BleedingDizzinessReasonCommentsIrregular CyclesReasonOnset DateCommentsRefill Ddqdftq0707/25/2024ReasonOnset DateCommentsRefill Iinejbj7010/20/2024ReasonOnset DateCommentsRefill Aegiqkp0910/29/2024ReasonCommentsGestational DiabetesSpecialty Diagnoses / ProceduresReferred By ContactReferred To ContactMaternal and Medicine Diagnoses Gestational diabetes mellitus (GDM), antepartum, gestational diabetes method of control unspecified Wilton Herrmann, DO [address] [place] [address] Dr [place] [address] Phone: tel: fax: Maternal- Medicine at [facility] [address] [place] [address] Phone: tel: fax: Referral IDStatusReasonStart DateExpiration DateVisits RequestedVisits [id number] Review Specialty Services Required [id number]rzivq stateAnemia8 week follow up ReasonCommentsMFM consultReasonCommentsRoutine VisitReasonComments [...] BE BASED ON THE PRIMARY CLINICAL RECORDS. [facility]. provides no warranty or guarantee of the accuracy or completeness of information in this document.
--- NOTE | 2025-03-19 19:16 | US_ITS ---
The [address] [address] Patient Name: MADHU RENDON MRN: [id number] date: 1985 Sex: F Assigned Patient Location: [facility] Current Patient Location: Accession/Order Number: [id number] Exam Date: 03/19/2025 19:20 Report Date: 03/19/2025 23:51 At the request of: MYA MASSEY DO Procedure: US OB growth Ultrasound biophysical profile HISTORY: Third trimester Adequate breathing movement, gross body movement, tone and amniotic fluid volume for total score of 8 out of 8. The amniotic fluid index is 13.7cm within normal limits. The heart rate 145 bpm. US/US OB BPP w non-stress IMPRESSION: Adequate ultrasound biophysical profile Limited ultrasound to assess for growth Fetus in breech presentation with longitudinal lie. Amniotic fluid index 13.7 cm. Largest fluid pocket 4.5 cm. heart rate is 145 bpm. somatic motion identified. The ultrasound gestational age 34 weeks 1 day. Estimated date of delivery 04/29/2025. The aspirate weight 2318 g which is in the 58.9 percentile. IMPRESSION: Single live intrauterine gestation 34 weeks 1 day. Impression dictated by: Robert Beltrán M.D. 03/19/2025 11:51 PM Dictation Location: [facility] Electronically authenticated by: [id number] Y Date: 03/19/2025 23:51
--- NOTE | 2025-03-19 19:17 | US_ITS ---
The [address] [address] Patient Name: MADHU RENDON MRN: [id number] date: 1985 Sex: F Assigned Patient Location: Current Patient Location: Accession/Order Number: [id number] Exam Date: 03/19/2025 19:20 Report Date: 03/19/2025 23:51 At the request of: MYA MASSEY DO Procedure: US OB growth Ultrasound biophysical profile HISTORY: Third trimester Adequate breathing movement, gross body movement, tone and amniotic fluid volume for total score of 8 out of 8. The amniotic fluid index is 13.7cm within normal limits. The heart rate 145 bpm. US/US OB growth IMPRESSION: Adequate ultrasound biophysical profile Limited ultrasound to assess for growth Fetus in breech presentation with longitudinal lie. Amniotic fluid index 13.7 cm. Largest fluid pocket 4.5 cm. heart rate is 145 bpm. somatic motion identified. The ultrasound gestational age 34 weeks 1 day. Estimated date of delivery 04/29/2025. The aspirate weight 2318 g which is in the 58.9 percentile. IMPRESSION: Single live intrauterine gestation 34 weeks 1 day. Impression dictated by: Robert Beltrán M.D. 03/19/2025 11:51 PM Dictation Location: [facility] Electronically authenticated by: [id number] Y Date: 03/19/2025 23:51
[2025-03-19 19:52] VITALS: BP 116/67; PULSE 83
== END 2025-03-19 20:28 | disposition home or self-care (01) ==
LOC: US 19:08 → FBC 19:11
PROVIDERS: Visit Provider Obstetrics & Gynecology
DX: O24.419 Gestational diabetes mellitus in pregnancy, unspecified control (principal); Z3A.34 34 weeks gestation of pregnancy
CPT/HCPCS: 76816; 76818

== ENCOUNTER 2025-03-23 18:07 | Outpatient (OUT) | payer MEDICAID, SELFPAY ==
--- OUTSIDE RECORDS SUMMARY | 2025-03-10 09:50 | XMS_ITS | Encounter Summary ---
Author Organization [facility] Address [address] [place] [address] Care Team Providers Care Patient Service Associate Name Role Phone Evans Casas MD Primary Care Provider [phone] Reason for Visit * ReasonCommentsRoutine Visit Encounter Details DateTypeDepartmentCare Team (Latest Contact Info)Gotlztlnhpa36/11/2025 9:50 AM ESTRoutine [facility] [place] [facility] [address] [place] [address] Wilton Herrmann DO [address] [place] [id number] 32 weeks gestation of ([facility]); Third trimester ([facility]); Anemia complicating childbirth ([facility]); Anticoagulant long-term use; Antiphospholipid antibody positive; Blood pressure elevated without history of HTN; Coagulation defect, unspecified ([facility]); Antiphospholipid antibody syndrome ([facility]); Thyroid disease; Multigravida of advanced maternal age in third trimester ([facility]) Social History Tobacco UseTypesPacks/DayYears UsedDateSmoking Tobacco: NeverSmokeless Tobacco: NeverAlcohol UseStandard Drinks/WeekCommentsNever0 (1 standard drink = 0.6 oz pure alcohol)PHQ-2AnswerDate RecordedPatient Health Questionnaire-2 Score0 03/03/2025Estimated Date of LcbculffEggmgudhMsi07/05/2026ased on last menstrual period of 07/28/2024Sex and Gender InformationValueDate RecordedSex Assigned at BirthNot on fileLegal TwzJrvpky62/15/2023 11:19 PM EDTGender IdentityNot on fileSexual OrientationNot on filedocumented as of this encounter Last Filed Vital Signs Vital SignReadingTime TakenCommentsBlood Jhiyfqjn751/7011 10:01 AM EST Pulse--Temperature--Respiratory Rate--Oxygen Saturation--Inhaled Oxygen Concentration--Dfvpxv34.6 kg (210 lb 12.8 oz)03/10/2025 10:01 AM [...] Diagnosis Date Noted 32 weeks gestation of ([facility]) 11/28/2019 Abdominal pain 06/12/2023 Acute bronchitis due to infection 06/12/2023 Acute on chronic vesicular eczema of hands and feet 11/15/2023 Anemia complicating childbirth ([facility]) 01/16/2020 Anticoagulant long-term use 02/22/2020 Antiphospholipid antibody positive 09/10/2017 Antiphospholipid antibody syndrome ([facility]) 07/07/2019 Anxiety 06/12/2023 Blood pressure elevated without history of HTN 11/15/2023 BMI 37.0-37.9, adult 11/15/2023 Cerebral infarction, unspecified ([facility]) 05/16/2019 Cerebrovascular accident (CVA) due to stenosis of middle cerebral artery ([facility]) 02/22/2020 Cervicalgia 02/05/2019 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 ([facility]) 01/08/2020 Coagulation defect, unspecified ([facility]) 02/05/2019 Cold intolerance 11/15/2023 Deficiency of other specified B group vitamins 05/16/2019 Deviated septum 11/15/2023 Dizziness and giddiness 02/05/2019 Dry mouth 11/15/2023 Dysfunction of eustachian tube 06/12/2023 Dyspnea 06/12/2023 Elevated blood pressure reading 11/15/2023 Encounter for supervision of normal , unspecified, first trimester ([facility]) 05/29/2019 Environmental allergies 11/15/2023 Fatigue 12/29/2016 First degree perineal laceration during delivery ([facility]) 01/16/2020 Frequency of micturition 02/19/2019 Genitourinary symptoms 08/19/2021 Gestational diabetes mellitus (GDM), antepartum ([facility]) 01/26/2022 H/O: hypothyroidism 11/15/2023 Hematochezia 06/12/2023 [...] anemia 01/16/2020 Irregular uterine bleeding 11/15/2023 problem ([facility]) 06/12/2023 Less than 8 weeks gestation of ([facility]) 06/05/2019 FCI (current) use of 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/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 02/05/2019 Migraine without aura and without status migrainosus, not intractable 09/12/2017 Morbid obesity ([facility]) 11/15/2023 Muscle fasciculation 08/19/2021 Nasal polyps 11/15/2023 Non-smoker 11/15/2023 NEETA (obstructive sleep apnea) 11/15/2023 Other acute postprocedural pain 02/03/2019 Other general symptoms and signs 10/28/2019 Other immediate hemorrhage ([facility]) 01/16/2020 Other specified noninflammatory disorders of vagina 02/21/2019 Pain in joint 12/29/2016 Palpitations 08/26/2019 Paresthesia of bilateral legs 11/15/2023 Pelvic and perineal pain 02/01/2019 Personal history of urinary (tract) infections 01/16/2020 Pre-diabetes 11/15/2023 Primary hypercoagulable state ([facility]) 08/01/2022 Pruritus, unspecified 01/02/2020 Psychogenic hyperventilation 06/12/2023 Raised antibody titer 09/25/2017 Right lower quadrant pain 11/15/2023 Right otitis externa 11/15/2023 Salivary gland swelling 11/15/2023 Single live ([facility]) 01/15/2020 Snoring 11/15/2023 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) 12/30/2019 Suspected severe acute respiratory syndrome coronavirus 2 (SARS-CoV-2) infection 06/12/2023 SVT (supraventricular tachycardia) ([facility]) 08/26/2019 Syncope and collapse 06/03/2018 Other bacterial [...] drainage of cyst WISDOM TOOTH EXTRACTION 2007 [place] teeth REVIEW OF SYSTEMS Review of Systems: [...] nursing note reviewed. Exam conducted with a boat builder and repairer present. Vitals: Estimated body mass index is 34.02 kg/m?? as calculated from the following: Height as of 11/19/23: 5' 6 . Weight as of this encounter: 210 lb 12.8 oz. BP: 120/70 Patient's last menstrual period was 07/28/2024. Assessment/Plan ICD-10-CM 1. 32 weeks gestation of ([facility]) Z3A.32 POCT urinalysis dipstick manually resulted 2. Third trimester ([facility]) Z34.93 POCT urinalysis dipstick manually resulted 3. Anemia complicating childbirth ([facility]) O99.02 4. Anticoagulant long-term use Z79.01 5. Antiphospholipid antibody positive R76.0 6. Blood pressure elevated without history of HTN R03.0 7. Coagulation defect, unspecified ([facility]) D68.9 8. Antiphospholipid antibody syndrome ([facility]) D68.61 9. Thyroid disease E07.9 10. Multigravida of advanced maternal age in third trimester ([facility]) O09.523 Return OB: Patient presents today for [...] Plan of Treatment DateTypeDepartmentCare Team (Latest Contact Info)Jgijhiuniya48/26/2025 11:10 AM ESTRoutine [facility] Piyush [address] [place] [address] Wilton Herrmann, [address] [place] [address] 04/08/2025 1:40 PM ESTRoutine [facility] P[facility]ush [address] [place] [address] Wilton Herrmann, [address] [place] [address] 04/15/2025 1:50 PM ESTRoutine [facility] Piyush COLVIN [address] [place] [address] [place] [phone] Wilton Herrmann, [address] [place] [address] documented as of this encounter Procedures Procedure NamePriorityDate/TimeAssociated DiagnosisCommentsPOCT URINALYSIS JZDYIFTLMgbitib09/11/2025 10:06 AM EST 32 weeks gestation of ([facility]) Third trimester ([facility]) documented in this encounter Results * (ABNORMAL) POCT urinalysis dipstick manually resulted (03/10/2025 10:06 AM EST)ComponentValueRef RangeTest MethodAnalysis TimePerformed AtPathologist SignatureColor, UAYellowClarity, UAClearGlucose, UANegativeNegative - 1999(110) ++++ mg/dLBilirubin, UANegativeNegative - 4(70) +++ mg/dLKetones, UA NegativeNegative - 160(16) ++++ mg/dLSpec Grav, UA1.0101 - 1.03Blood, UA NegativeNegative - 50 Max/mcLpH, UA6.05 - 9Protein, UANegativeNegative - 1999(20) ++++ mg/dLUrobilinogen, UA1.00.2 - 12 mg/dLLeukocytes, UAPositive Negative - 500+++ John/mcLComment:2+Nitrite, UANegativeNegative - Positive Specimen (Source)Anatomical Location / LateralityCollection Method / Volume Collection TimeReceived ZwemDizfx22/11/2025 10:06 AM EST Narrative Authorizing ProviderResult TypeResult StatusCorey Montez DOPOINT OF CARE TEST ENTER/EDIT ORDERABLESFinal Result documented in this encounter Visit Diagnoses Diagnosis 32 weeks gestation of ([facility]) Third trimester ([facility]) state, incidental Anemia complicating childbirth ([facility]) Anticoagulant long-term use Encounter for long-term (current) use of anticoagulants Antiphospholipid antibody positive Other and unspecified nonspecific immunological findings Blood pressure elevated without history of HTN Coagulation defect, unspecified ([facility]) Antiphospholipid antibody syndrome ([facility]) Primary hypercoagulable state Thyroid disease Unspecified disorder of thyroid Multigravida of advanced maternal age in third trimester ([facility]) documented in this encounter Care Teams Team MemberRelationshipSpecialtyStart DateEnd Date Evans Casas MD [address] [place] [address] PCP - GeneralFamily Medicine11/07/23documented as of this encounter
--- OUTSIDE RECORDS SUMMARY | 2025-03-11 09:45 | XMS_ITS | Encounter Summary ---
Author Organization [facility] tem Address [id number] [address] [place] [address] Care Team Providers Care Financial Specialist Name Role Phone Evans Casas DO Primary Care Provider [phone] Encounter Details DateTypeDepartmentCare Team (Latest Contact Info)Xifoevvxdaw70/12/2025 9:45 AM ESTTelemedicine Maternal- Medicine at [facility] [address] [place] [phone] Sana Palma MD [address] [place] [address] Star Cortes MD [address] [facility], [address] [place] [address] Gestational diabetes mellitus (GDM) in second trimester controlled on oral hypoglycemic drug (Primary Dx); Antiphospholipid syndrome Social History Tobacco UseTypesPacks/DayYears UsedDateSmoking Tobacco: NeverSmokeless Tobacco: NeverAlcohol UseStandard Drinks/WeekCommentsNot Currently0 (1 standard drink = 0.6 oz pure alcohol)ChildcareAnswerDate PwzrizfzKecvvtjrbDicdhjr60/31/2019 EmploymentAnswerDate YitnxsntWvncvuukcgHdjdhaz67/31/2019Hunger ScreeningAnswer Date RecordedWithin the past 12 months we worried whether our food would run out before we got money to buy more.Never True01/01/2025Within the past 12 months the food we bought just didn't last and we didn't have money to get more.Never True01/01/2025Purpose - LifeAnswerDate RecordedPurpose and direction in life Xcptjeu25/11/2021Estimated Date of FfdkaucxHpoqeneoHxe60/05/2026Based on last menstrual period of 07/28/2024Sex and Gender InformationValueDate Recorded Sex Assigned at BirthNot on fileLegal MfyFdgyyu38/31/2019 12:25 PM EDTGender IdentityNot on fileSexual OrientationNot on filedocumented as of this encounter Progress Notes * Star Cortes MD - 03/11/2025 9:45 AM EST REASON FOR TELEMEDICINE VIDEO OFFICE VISIT: Multiple medical problems HISTORY OF PRESENT ILLNESS: Sanna Bone is a pleasant 39 y.o. G 8p 4-0 3 4 at 32w2d due on Estimated Date of Delivery: 05/04/25 . has been complicated with Maternal gestational diabetes A2 currently on metformin 500 mg in the morning and 1000 mg at bedtime with good glycemic control. 2. Maternal antiphospholipid syndrome currently on prophylactic dosing of Lovenox 40 mg subQ q.12h. 3. Maternal hypothyroidism currently on 25 mcg of Synthroid with good results. Currently the patient has no complaints. The patient denies nausea, vomiting, abdominal pain, vaginal bleeding, SOB or chest pain. Patient Active Problem List Diagnosis Antiphospholipid syndrome complicating , antepartum Anemia AMA (advanced maternal age) multigravida 35+ Antiphospholipid syndrome Hypothyroid Stroke ([facility]) Gestational diabetes mellitus (GDM) in second trimester controlled on oral hypoglycemic drug ALLERGIES: Allergies Allergen Reactions Ciprofloxacin Dizziness Lactose [...] 500 mg 24 hr tablet, Take 500 AM and 1000 mg at night., Disp: 90 [...] mouth in the morning., Disp: , Rfl: Past Medical History: Diagnosis Date AMA (advanced maternal age) multigravida 35+ Anemia Antiphospholipid antibody syndrome Cerebral infarction, unspecified ([facility]) 05/16/2019 Hypothyroid Migraine without aura and without status migrainosus, not intractable 09/12/2017 Stroke ([facility] 2015 REVIEW OF SYSTEMS: Head and Neck: Negative for any dizziness and headaches. Cardiovascular and Respiratory System: Denies any chest pain, shortness of breath, and coughing. Abdominal and System: Denies any abdominal pain, nausea, vomiting, vaginal bleeding, and vaginal discharge REVIEW OF ULTRASOUND. Pertinent Ultrasound findings are see report. PHYSICAL EXAMINATION: LMP 07/28/2024 . Gravid abdomen, Respirations not labored. Normal gait well oriented in time place and person. RECOMMENDATION: Continue metformin 500 mg in the morning and 1000 mg at bedtime. No change in medication 2. Continue Synthroid. 3. Continue testing at her OB office OB office 4. Delivery at 39 weeks gestation at her local hospital. 5. Hold Lovenox therapy 12 hours prior to induction 6. Resume Lovenox therapy 40 mg subQ daily for 6 weeks Thank you for allowing me to participate in [facility]. If there are any questions, please do not hesitate to call me. Sincerely, STAR CORTES MD Video Visit via Real-time Synchronous Audiovisual Provider Location: [facility] MATERNAL- MEDICINE AT [address] [address] Patient Location: Patient's home Patient Location Project Executive: None Video Visit Consent Statement: I discussed [...] that there are some limitations compared to wpcp-ci-wjui evaluations. We elected to proceed. documented in this encounter Plan of Treatment DateTypeDepartmentCare Team (Latest Contact Info)Qkwtircpikw48/09/2025 1:30 PM ESTTelemedicine Maternal- Medicine at [facility] [address] [place] [address] Davida Smith PA-C [address] [address] documented as of this encounter Visit Diagnoses Diagnosis Gestational diabetes mellitus (GDM) in second trimester controlled on oral hypoglycemic drug- Primary Antiphospholipid syndrome Primary hypercoagulable state documented in this encounter Care Teams Team MemberRelationshipSpecialtyStart DateEnd Date Evans Casas DO PCP - GeneralFamily Medicine07/07/19documented as of this encounter
--- OUTSIDE RECORDS SUMMARY | 2025-03-17 14:00 | XMS_ITS | Encounter Summary ---
Author Organization [facility] tem Address [facility] [address] [place] [address] Care Team Providers Care Machine Worker Name Role Phone Evans Casas DO Primary Care Provider [phone] Encounter Details DateTypeDepartmentCare Team (Latest Contact Info)Bazmjsjftqp29/18/2025 2:00 PM ESTTelemedicine [facility], [facility] Department of [address] [address] Sam Callahan MD MPH [address] [place] [address] Antiphospholipid syndrome complicating , antepartum (Primary Dx); Antiphospholipid syndrome; History of CVA (cerebrovascular accident); Coordination of complex care; 33 weeks gestation of Social History Tobacco UseTypesPacks/DayYears UsedDateSmoking Tobacco: NeverSmokeless Tobacco: NeverAlcohol UseStandard Drinks/WeekCommentsNot Currently0 (1 standard drink = 0.6 oz pure alcohol)ChildcareAnswerDate ZaxkmarsDxjenitdeCotasgr93/31/2019 EmploymentAnswerDate VxrguwadQmlfrdzmxtHdjqnme58/31/2019Hunger ScreeningAnswer Date RecordedWithin the past 12 months we worried whether our food would run out before we got money to buy more.Never True01/01/2025Within the past 12 months the food we bought just didn't last and we didn't have money to get more.Never True01/01/2025Purpose - LifeAnswerDate RecordedPurpose and direction in life Wttwgsn69/11/2021Estimated Date of CodluptnVvmjdvvsFzy14/05/2026Based on last menstrual period of 07/28/2024Sex and Gender InformationValueDate Recorded Sex Assigned at BirthNot on fileLegal PjbUmjiic53/31/2019 12:25 PM EDTGender IdentityNot on fileSexual OrientationNot on filedocumented as of this encounter Progress Notes * Sam Callahan MD MPH - 03/17/2025 2:00 PM EST Images from the original note were not included. Video Visit via Real-time Synchronous Audiovisual Provider Location: [facility], A DEPARTMENT OF [facility], A DEPARTMENT OF [address] [address] Patient Location: Patient's home Patient Location Student Officer: None Video Visit Consent Statement: I discussed [...] that there are some limitations compared to sbwn-mh-fnxb evaluations. We elected to proceed. ADULT RHEUMATOLOGY CLINIC NOTE [address] [place] [phone] Patient Name: Sanna Bone Subjective Reason for [...] with two outside specialists (Neurology at [facility] and Hematology at [facility]) for management of her APS. The patient [...] health issues unclear exact diagnoses Note from [facility] Provider (Dr. Medina): Recent note from Neurologist: Interval Hx: The patient presents virtually for a follow up visit. [facility] her NASEEM by IFA, [...] Anemia Antiphospholipid antibody syndrome Cerebral infarction, unspecified ([facility]) 05/16/2019 Hypothyroid Migraine without aura and without status migrainosus, not intractable 09/12/2017 Stroke ([facility]) 2016 reviewed. Social History Social History Narrative [...] weeks . She is currently following with [facility] for her , neurology through the [employer] system, and hematology through [facility]. Based on extensive review of her outside [...] also had our staff [facility] the [...] and immunizations. Follow-up: -FITO Callahan MD, MPH [facility] [address] [place] [address] Total time spent was 45 minutes: Preparing to see the patient (e.g., review of tests) Obtaining and/or reviewing separately obtained history Performing a medically appropriate examination and/or evaluation Counseling and educating the patient/family/caregiver Referring and communicating with other health child adolescent care (not separately reported) Documenting clinical information in [...] Plan of Treatment DateTypeDepartmentCare Team (Latest Contact Info)Uzrbwbtkzhk28/09/2025 1:30 PM ESTTelemedicine Maternal- Medicine at [facility] [address] [place] [address] Davida Smith PA-C [address] [address] documented as of this encounter Visit Diagnoses [...]
--- OUTSIDE RECORDS SUMMARY | 2025-03-23 18:11 | XMS_ITS | Encounter Summary ---
Author Organization [facility] Address [address] [facility] [place] [address] Care Team Providers Care Relationship Specialist Name Role Phone Evans Casas MD Primary Care Provider [phone] Encounter Details DateTypeDepartmentCare Team (Latest Contact Info)Wqkkkvaylpn29/20/2025linisync Result Encounter [facility] Unsolicited Mya Herrmann DO [address] [place], [facility]11 Social History Tobacco UseTypesPacks/DayYears UsedDateSmoking Tobacco: NeverSmokeless Tobacco: NeverAlcohol UseStandard Drinks/WeekCommentsNever0 (1 standard drink = 0.6 oz pure alcohol)PHQ-2AnswerDate RecordedPatient Health Questionnaire-2 Score0 03/03/2025Estimated Date of LbnfmnelGeawruwvJzz35/05/2026ased on last menstrual period of 07/28/2024Sex and Gender InformationValueDate RecordedSex Assigned at BirthNot on fileLegal XueDiinbk69/15/2023 11:19 PM EDTGender IdentityNot on fileSexual OrientationNot on filedocumented as of this encounter Plan of Treatment DateTypeDepartmentCare Team (Latest Contact Info)Csziwnrkteg42/26/2025 11:10 AM ESTRoutine [facility] [place] [facility] [address] [place] [phone] Mya Herrmann DO [address] [place] [address] 04/08/2025 1:40 PM ESTRoutine [facility] [place] [facility] [address] [facility] [place] [phone] Mya Herrmann, DO [address] [facility] [place] [address] 04/15/2025 1:50 PM ESTRoutine [facility] [place] [facility] [address] [facility] [place] [phone] Mya Herrmann, DO [address] [facility] [place] [address] documented as of this encounter Procedures Procedure NamePriorityDate/TimeAssociated DiagnosisCommentsUS OB BPP W NON-CZHGSD0403/19/2025 11:51 PM EST documented in this encounter Results * US OB BPP W NON-STRESS (03/19/2025 11:51 PM EST)Anatomical Region LateralityModalityOtherSpecimen (Source)Anatomical Location / Laterality Collection Method / VolumeCollection TimeReceived Time03/19/2025 11:51 PM EST Narrative 03/19/2025 11:53 PM EST The [facility] ?[address] ? [place] [address] ? Ultrasound Report ? Signed ? Patient: SANNA RENDON ?MR#: [id number] ?? : 1985 ?Acct:[id number] ?? Age/Sex: 39 / F ?ADM Date: 03/19/25 ?? Loc: US ? Attending Dr: Mya Herrmann D.O. ? Ordering Physician: Mya Herrmann D.O. ?? Date of Service: 03/19/25 ?? Procedure(s): US OB BPP w non-stress ?? Accession Number(s): [id number] ? cc: Mya Herrmann D.O.; Physician,Non-Staff M.D. ? The [facility] ? [address] ? [place] [address] ? Patient Name: ?? SANNA RENDON ? MRN: [facility]:[id number] ? date: 1985 ?Sex: F ?? Assigned Patient Location: [facility] ?? Current Patient Location: ? Accession/Order Number: [id number] ?? Exam Date: 03/19/2025 ??19:20 ?Report Date: 03/19/2025 ??23:51 ? At the request of: ?? MYA ??MONTEZ ??DO ? Procedure: ??US OB growth ? Ultrasound biophysical profile ? HISTORY: Third trimester ? Adequate breathing movement, gross body movement, tone and ?? amniotic fluid volume for total score of 8 out of 8. ??The amniotic fluid index ?? is 13.7cm within normal limits. ??The heart rate 145 bpm. ? US/US OB BPP w non-stress ?? IMPRESSION: Adequate ultrasound biophysical profile ? Limited ultrasound to assess for growth ? Fetus in breech presentation with longitudinal lie. ??Amniotic fluid index 13.7 ?? cm. ??Largest fluid pocket 4.5 cm. ?? heart rate is 145 bpm. ?? somatic ?? motion identified. ??The ultrasound gestational age 34 weeks 1 day. ??Estimated ?? date of delivery 04/29/2025. ??The aspirate weight 2318 g which is in the ?? 58.9 percentile. ? IMPRESSION: Single live intrauterine gestation 34 weeks 1 day. ? Impression dictated by: Robert Beltrán M.D. ??03/19/2025 11:51 PM ? Dictation Location: [place] [address] ? Electronically authenticated by: [id number] ??Y ?? Date: 03/19/2025 ??23:51 ? Dictated By: ?Robert Beltrán D.O. ? Signed By: ?03/19/25 2353 ? DD/ 2351 ? TD/TT: ? Epilepsy Physician: Procedure Note Radiology, Radiologist, MD - 03/19/[address] [address] Ultrasound Report Signed Patient: SANNA RENDON [facility]#: [id number] : 1985Acct:[id number] Age/Sex: 39 / FADM Date: 03/19/25 Loc: US Attending Dr: Mya Herrmann D.O. Ordering Physician: Mya Herrmann D.O. Date of Service: 03/19/25 Procedure(s): US OB BPP w non-stress Accession Number(s): [id number] cc: Mya Herrmann D.O.; Physician,Non-Staff [place] [id number] Patient Name: SANNA RENDON MRN: [facility]:[id number] date: 1985 Sex: F Assigned Patient Location: [facility] Current Patient Location: Accession/Order Number: [id number] Exam Date: 03/19/2025 19:20 Report Date: 03/19/2025 23:51 At the request of: MYA HERRMANN DO Procedure: US OB growth Ultrasound biophysical profile HISTORY: Third trimester Adequate breathing movement, gross body movement, tone and amniotic fluid volume for total score of 8 out of 8. The amniotic fluidindex is 13.7cm within normal limits. The heart rate 145 bpm. US/US OB BPP w non-stress IMPRESSION: Adequate ultrasound biophysical profile Limited ultrasound to assess for growth Fetus in breech presentation with longitudinal lie. Amniotic fluid index13.7 cm. Largest fluid pocket 4.5 cm. heart rate is 145 bpm. Fetalsomatic motion identified. The ultrasound gestational age 34 weeks 1 day.Estimated date of delivery 04/29/2025. The aspirate weight 2318 g which is inthe 58.9 percentile. IMPRESSION: Single live intrauterine gestation 34 weeks 1 day. Impression dictated by: Robert Beltrán M.D. 03/19/2025 11:51 PM Dictation Location: [place] [address] Electronically authenticated by: [id number] Y Date: 3:51 Dictated By: Robert Beltrán D.O. Signed By:03/19/252352 DD/ 50 TD/TT: Epilepsy Physician: Authorizing ProviderResult TypeResult StatusCorey Montez DOCLINISYNC IMAGINGFinal Result documented in this encounter Visit Diagnoses Not on filedocumented in this encounter Care Teams Team MemberRelationshipSpecialtyStart DateEnd Date Kap, Evans A, MD [address] [place] [address] PCP - GeneralFamily Medicine11/07/23documented as of this encounter
--- OUTSIDE RECORDS SUMMARY | 2025-03-23 18:11 | XMS_ITS | Encounter Summary ---
Author Organization [facility] Address [address] [facility] [place] [address] Care Team Providers Care Group Work Program Director Name Role Phone Evans Casas MD Primary Care Provider [phone] Encounter Details DateTypeDepartmentCare Team (Latest Contact Info)Ecvbqffrxyb61/24/2025bstract NOMJaylan COLVIN [address] [place] [phone] Wilton Herrmann DO [address] [place], [facility] Social History Tobacco UseTypesPacks/DayYears UsedDateSmoking Tobacco: NeverSmokeless Tobacco: NeverAlcohol UseStandard Drinks/WeekCommentsNever0 (1 standard drink = 0.6 oz pure alcohol)PHQ-2AnswerDate RecordedPatient Health Questionnaire-2 Score0 03/03/2025Estimated Date of BjrdpbzwUirkrbcpLjy57/05/2026ased on last menstrual period of 07/28/2024Sex and Gender InformationValueDate RecordedSex Assigned at BirthNot on fileLegal LhjYqiwvg13/15/2023 11:19 PM EDTGender IdentityNot on fileSexual OrientationNot on filedocumented as of this encounter Plan of Treatment DateTypeDepartmentCare Team (Latest Contact Info)Dpqdgqlzgpx00/26/2025 11:10 AM ESTRoutine NOMJaylan COLVIN [address] [facility] [phone] Wilton Herrmann [address] [facility] [place] [address] 04/08/2025 1:40 PM ESTRoutine [facility] Piyush COLVIN [address] [address] [place] [phone] Wilton Herrmann, [address] [facility] [place] [id number] 04/15/2025 1:50 PM ESTRoutine [facility] Piyush OBKATHIEN [address] [address] [place] [phone] Wilton Herrmann, [address] [place] [id number] documented as of this encounter Visit Diagnoses Not on filedocumented in this encounter Care Teams Team MemberRelationshipSpecialtyStart DateEnd Date Evans Casas MD [address] [place] [address] PCP - GeneralFamily Medicine11/07/23documented as of this encounter
--- OUTSIDE RECORDS SUMMARY | 2025-03-23 18:11 | XMS_ITS | Clinical Summary ---
Author Organization [facility] Address [address] [place] [place] [address] Care Team Providers Care Sales Support Consultant Name Role Phone Evans Casas MD Primary Care Provider [phone] Allergies Active AllergyReactionsCriticalityNoted DateCommentsCiprofloxacinGI intolerance 04/19/2023iprofloxacin-Fluocinolone Pf05/19/2019 Other Reaction(s): Other: See Comments Dizziness, weakness sweating Jvepnbd1509/10/2017 Other Reaction(s): GI Disturbance, GI Upset Diarrhea Diarrhea Lactose Intolerance (Gi)11/15/2023 Other Reaction(s): Illness Bstzvfsaara83/06/2021 Other Reaction(s): Other (See Comments) LaapqHmfdhVwd55/26/2018 seasonal Other Reaction(s): Other (See Comments) Medications MedicationSigDispense QuantityRefillsLast FilledStart DateEnd DateStatus Multiple Vitamin (Multi-Vitamin) tablet Take 1 tablet by mouth in the morning.Active levothyroxine (Synthroid) 25 MCG tablet Indications:Abnormal TSHTake 1 tablet (25 mcg) by mouth in the morning. Take before meals. 30 tablet 110//[id number]//6Active enoxaparin (Lovenox) 40 MG/0.4ML injection 1 (one) time each day at the same timeActive docusate sodium (Colace) 50 MG capsule Take 100 mg by mouth in the morning and 100 mg before bedtime.Active polyethylene glycol, PEG, 3350 (Glycolax) 17 GM/SCOOP powder Take 17 g by mouth DailyActive Alcohol Swabs (Alcohol Prep Pad) 70 % pads Indications:Second trimester ([facility]),13 weeks gestation of ([facility]),Multigravida of advanced maternal age in second trimester ([facility]), Gestational diabetes mellitus (GDM), antepartum, gestational diabetes method of control unspecified([facility]),Elevated glucose tolerance testApply 1 Pad topically Daily Use four times daily to check FSBS. 150 each 5Active Blood Glucose Monitoring Suppl (D-CCBR-SYNARC Glucometer) w/Device kit Indications:Second trimester ([facility]),13 weeks gestation of ([facility]),Multigravida of advanced maternal age in second trimester ([facility]), Gestational diabetes mellitus (GDM), antepartum, gestational diabetes method of control unspecified([facility]),Elevated glucose tolerance test1 kit Daily Use four [...] (GDM), antepartum, gestational diabetes method of control unspecified([facility])Take 3 tablets (1,500 mg) by mouth in the evening. Take with meals Do not crush, chew, or split. 90 tablet 5Active Active Problems ProblemNoted DateDiagnosed DateH/O loss01/05/2025Multigravida of advanced maternal age in second trimester ([facility])01/05/2025Thyroid jfdsbve5401/05/2025 Referred otalgia of right ear11/19/2023LPRD (laryngopharyngeal reflux disease) 11/19/2023cute on chronic vesicular eczema of hands and feet11/15/2023lood pressure elevated without history of HTN11/15/2023MI 37.0-37.9, adult11/15/2023 Cold lahuuiwkbsu26/18/2024eviated tector5611/15/2023ry mouth11/15/2023Elevated blood pressure hauuqaq4411/15/2023Environmental zyueftgtv99/18/2024H/O: goygzgakygfryy40/18/2024History of kdgcff1711/15/2023History of cerebrovascular puzlmueh46/18/2024 Overview (11/15/2023): reported by pt - related to antiphospholipid syndrome History of COVID-19011/15/2023History of gestational rkkkafnu76/18/2024History of kidney btwycc1511/15/2023Hx of iron deficiency snizwo4911/15/2023Immunization not carried out because of patient xxmmvroh66/18/2024Iron buivmefrkz01/18/2024 Irregular uterine ffyqfxek77/18/2024Morbid qgtjqpe4511/15/2023Nasal polyps 11/15/2023Non-dzhkzs2611/15/2023OSA (obstructive sleep apnea)11/15/2023aresthesia of bilateral legs11/15/2023re-inkeqyjo97/18/2024Right lower quadrant pain 4Right otitis jvnhwtc2111/15/2023Salivary gland hgausnvp94/18/2024Snoring 11/15/2023bdominal pain4Acute bronchitis due to zatpzxoyi18/13/2024 Rtywkxc0906/12/2023ysfunction of eustachian tube06/12/20236404Iobcylu72/13/2024 Jrnruvwkenua64/13/2024Inhalation lojcan8106/12/2023Lactation problem ([facility]) 4Psychogenic dtzsugtjtjwwxdqh80/13/2024Suspected severe acute respiratory syndrome coronavirus 2 (SARS-CoV-2) vbblcvfbo89/13/2024Hypoglycemia 06/12/2023rimary hypercoagulable state ([facility])08/01/2022estational diabetes mellitus (GDM), antepartum ([facility])01/26/2022Genitourinary mnwvfkyc29/22/2022 Muscle yosinkfpabcyh24/22/2022nticoagulant long-term use02/22/2020 Cerebrovascular accident (CVA) due to stenosis of middle cerebral artery 02/22/2020Anemia complicating childbirth ([facility])01/16/2020First degree perineal laceration during delivery ([facility])01/16/2020Acute posthemorrhagic qqcblt1801/16/2020Other immediate hemorrhage ([facility])01/16/2020 Personal history of urinary (tract) bhtllvwaxj66/18/2020Single live ([facility])01/15/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 ([facility])01/08/2020Pruritus, cbrqyylsohk41/04/2020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)12/30/201932 weeks gestation of ([facility])11/28/2019Thrombocytopenia, pzxgmyvghcs70/23/2020Other general symptoms and signs10/28/2019Urinary tract iowasiidv08/18/2020 Zbredterqzby69/28/2020SVT (supraventricular tachycardia)08/26/2019 Antiphospholipid antibody syndrome ([facility])07/07/2019Other bacterial infections of unspecified site06/27/2019Less than 8 weeks gestation of ([facility]) 06/05/2019Encounter for supervision of normal , unspecified, first trimester ([facility])05/29/2019Cerebral infarction, lggqectmjji45/17/2020 Deficiency of other specified B group stsqttee17/17/4603Werbhjdmwxee69/17/2020 Unspecified condition associated with female genital organs and menstrual cycle 05/09/2019Other specified noninflammatory disorders of oylegx5702/21/2019Frequency of ggyuqhrmmns16/23/2019Unspecified ovarian cyst, right side02/06/2019 Hmlswfompma95/09/2019Coagulation defect, unspecified ([facility])02/05/2019 Dizziness and oevsekvwf33/09/2019Long term (current) use of 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/vskhuddwscdpl09/09/2019Other acute postprocedural pain02/03/2019 Pelvic and perineal pain02/01/2019Syncope and hwxyyuor76/04/2019Raised antibody titer09/25/2017Migraine without aura and without status migrainosus, not svmmtdqacph73/16/2018Antiphospholipid antibody /14/2018Fatigue 12/29/2016Idiopathic progressive xjlornofmr53/01/2017Pain in joint12/29/2016 Estimated Date of RgokxlvxWfbzyxrkXrh95/05/2026ased on last menstrual period of 07/28/2024 Encounters DateTypeDepartmentCare LgpdBtdgdxrdrci19/24/2025bstract [facility] [address] [facility] [place] [address] Mya Herrmann, DO 03/19/2025linisync Result Encounter [facility] External Department Unsolicited Mya Herrmann, DO 03/19/2025linisync Result Encounter [facility]OMS External Department Unsolicited Mya Herrmann, DO 03/13/2025linisync Result Encounter [facility]OM[facility] External Department Unsolicited Mya Herrmann, DO 03/10/2025 9:50 AM ESTRoutine [facility] [place] [address] Mya Herrmann, DO 32 weeks gestation of ([facility]); Third trimester ([facility]); Anemia complicating childbirth ([facility]); Anticoagulant long-term use; Antiphospholipid antibody positive; Blood pressure elevated without history of HTN; Coagulation defect, unspecified ([facility]-HCC); Antiphospholipid antibody syndrome ([facility]-HCC); Thyroid disease; Multigravida of advanced maternal age in third trimester ([facility]-HCC)03/10/2025 Bamboo flowsheet [facility] COLVIN [address] [place] [address] Mya Herrmann, DO 5Clinisync Result Encounter NOMS External Department Unsolicited Mya Herrmann, DO 03/04/2025bstract [facility] [address] [facility] [place] [address] Mya Herrmann, DO 03/03/2025Patient Outreach [facility] [address] [place] [address] Petra Whitmore LPN 02/27/2025linisync Result Encounter NOMS External Department Unsolicited Mya Herrmann, DO 02/23/2025 9:00 AM EDTRoutine [facility]ush ROBBGYN [address] [place] [address] Mya Herrmann, DO Third trimester ([facility]); 30 weeks gestation of ([facility])02/23/2025amboo flowsheet [facility]YN [address] [facility] [place] [address] Mya Herrmann, DO 02/20/2025linisync Result Encounter [facility]OM[facility] External Department Unsolicited Mya Herrmann, DO 02/20/2025linisync Result Encounter [facility] External Department Unsolicited Mya Herrmann, DO 02/17/2025linisync Result Encounter [facility] External Department Unsolicited Mya Herrmann, DO 02/17/2025bstract [facility] COLVIN [address] [facility] [place] [address] Mya Herrmann, DO 02/09/2025 10:30 AM EDTRoutine [facility] Piyush ROBBGYJuaquin [address] [place] [address] Mya Herrmann, DO Third trimester ([facility]); 28 weeks gestation of ([facility]); Anemia complicating childbirth ([facility]); Anticoagulant long-term use; Antiphospholipid antibody positive; Blood pressure elevated without history of HTN; Coagulation defect, unspecified ([facility])02/09/2025bstract [facility] [address] [facility] [place] [address] Mya Herrmann, DO 02/03/2025Patient Outreach [facility] [place] [phone] Petra Whitmore LPN 01/21/2025Telephone [facility] ROBBGYJuaquin [address] [facility] [place] [address] Celia Keith NP 01/19/2025 9:00 AM EDTRoutine [facility] P[facility] Borrero [facility] [place] [address] Mya Herrmann DO Second trimester ([facility]); 25 weeks gestation of ([facility]); Gestational diabetes mellitus (GDM), antepartum, gestational diabetes method of control unspecified([facility]); Anticoagulant long-term use; Antiphospholipid antibody positive; Antiphospholipid antibody syndrome ([facility])01/19/2025bstract [facility] P[facility]ush ZELAYAN Gissell [facility] [place] [address] Mya Herrmann DO 01/15/2025Telephone [facility] COLVIN [address] [place] [address] [place] [address] Lala Hess MA 01/06/2025Patient Outreach [address] [place] [address] Petra Whitmore LPN 01/05/2025 2:40 PM EDTRoutine [facility] P[facility]ush Borrero [facility] [place] [address] Mya Herrmann DO Second trimester ([facility]); 23 weeks gestation of ([facility]); Thyroid disease ; Gestational diabetes mellitus (GDM), antepartum, gestational diabetes method of control unspecified([facility]); Multigravida of advanced maternal age in second trimester ([facility]); H/O loss; Lightheaded; Bqjetnhyd64/08/2025amboo flowsheet [facility] Borrero [facility] [place] [address] Mya Herrmann DO 12/26/2024bstract [facility] Borrero [facility] [place] [address] Mya Herrmann DO from Last 3 Months Family History Medical HistoryRelationNameCommentsCerebrovascular AccidentFatherDiabetesFather Heart problemsMaternal GrandfatherMental illnessMaternal GrandmotherCancer Paternal GrandfatherDiabetesPaternal GrandfatherCancerPaternal Grandmother DiabetesPaternal GrandmotherDiabetesSisterRelationNameStatusCommentsFather Maternal GrandfatherMaternal GrandmotherPaternal GrandfatherPaternal Grandmother Sister Social History Tobacco UseTypesPacks/DayYears UsedDateSmoking Tobacco: NeverSmokeless Tobacco: Never Tobacco Cessation:Counseling Given: Not Answered Alcohol UseStandard Drinks/WeekCommentsNever0 (1 standard drink = 0.6 oz pure alcohol)PHQ-2AnswerDate RecordedPatient Health Questionnaire-2 Qsxcn86005/03/2024 Estimated Date of SwsdfajxKciyppjoZrs66/05/2026ased on last menstrual period of 07/28/2024Sex and Gender InformationValueDate RecordedSex Assigned at BirthNot on fileLegal OdtRrwccv78/15/2023 11:19 PM EDTGender IdentityNot on file Sexual OrientationNot on file Last Filed Vital Signs Vital SignReadingTime TakenCommentsBlood Lqdmysud216/7003/10/2025 10:01 AM EST Pulse--Temperature--Respiratory Rate--Oxygen Saturation--Inhaled Oxygen Concentration--Htsebi38.6 kg (210 lb 12.8 oz)03/10/2025 10:01 AM MIRLqnddv888.6 cm (5' 6 )11/19/2023 1:48 PM EDTBody Mass Index34.02011/19/2023 1:48 PM EDT Plan of Treatment DateTypeDepartmentCare Team (Latest Contact Info)Hryetuzjlhw44/26/2025 11:10 AM ESTRoutine [facility] COLVIN [address] [facility] [place] [address] Mya Herrmann DO [address] [place] [address] [address] [place], [place] [phone] 04/08/2025 1:40 PM ESTRoutine [facility] COLVIN [address] [facility] [place] [address] Mya Herrmann, DO [address] [facility] [place] [address] 04/15/2025 1:50 PM ESTRoutine [facility] O[facility]YN [address] [facility] [place] [phone] Mya Herrmann, DO [address] [place], [place] [phone] Health MaintenanceDue DateLast DoneCommentsHPV/Kqgygn4910/22/2015COVID-19 Vaccine ( season)2024Influenza Vaccine (#1)5Cervical Cancer Ekziqorfh07/18/2025Pap Smear2Pneumococcal Vaccine: Pediatrics (0 to 5 Years) and At-Risk Patients (6 to 64 Years)Aged OutNo longer eligible based on patient's age to complete this topic Procedures Procedure NamePriorityDate/TimeAssociated DiagnosisCommentsUS OB BPP W NON-XCYBSO7603/19/2025 11:51 PM EST US OB PKBQRK5003/19/2025 11:51 PM EST US OB BPP W NON-JVFGUA9103/13/2025 7:55 AM EST POCT URINALYSIS VLPRFTBXSzcgyur94/11/2025 10:06 AM EST 32 weeks gestation of ([facility]) Third trimester ([facility]) US OB BPP W NON-ZQAQCS3703/06/2025 8:10 AM EST US OB BPP W NON-IMTDLW8202/27/2025 10:53 AM EDT POCT URINALYSIS TSHYOOVGKdzogui77/27/2025 9:38 AM EDT 30 weeks gestation of ([facility]) US OB MQSIRW0002/20/2025 8:37 AM EDT OB BPP W NON-KNXXAR1102/20/2025 8:37 AM EDT ALL THYROID STIM PTVUZYZAwqwdso53/21/2025 1:31 PM EDT ALL CBC WITH AUTO VEULHcragpj56/21/2025 1:31 PM EDT POCT URINALYSIS XMKYZFNILkcjfan65/13/2025 10:55 AM EDT 28 weeks gestation of ([facility]) POCT URINALYSIS JVASTWZTUalpcty50/22/2025 9:33 AM EDT Second trimester ([facility]) POCT URINALYSIS XYHJBIFYLfnnwkb86/08/2025 3:25 PM EDT Second trimester ([facility]) PAP RQDODVktpfez82/18/2022 12:00 AM EDTfrom Last 3 Months or Most Recently Relevant to Health Maintenance Results * US OB GROWTH (03/19/2025 11:51 PM EST) Only the most recent of2 resultswithin the time period is included. Anatomical RegionLateralityModalityOtherSpecimen (Source)Anatomical Location / LateralityCollection Method / VolumeCollection TimeReceived Time03/19/2025 11:51 PM EST Narrative 03/19/2025 11:53 PM EST [facility] ?[address] ? [place] [address] ? Ultrasound Report ? Signed ? Patient: JUSTICE,MADHU S ?MR#: [id number] ?? : 1985 ?Acct:[id number] ?? Age/Sex: 39 / F ?ADM Date: 03/19/25 ?? Loc: US ? Attending Dr: Mya Herrmann D.O. ? Ordering Physician: Mya Herrmann D.O. ?? Date of Service: 03/19/25 ?? Procedure(s): US OB growth ?? Accession Number(s): [id number] ? cc: Mya Herrmann D.O.; Physician,Non-Staff MLazaraDLazara ? [facility] ? [address] ? [place] [address] ? Patient Name: ?? MADHU RENDON ? MRN: [facility]:[id number] ? date: 1985 ?Sex: F ?? Assigned Patient Location: ?? Current Patient Location: ? Accession/Order Number: [id number] ?? Exam Date: 03/19/2025 ??19:20 ?Report Date: [...] heart rate 145 bpm. ? US/US OB growth ?? IMPRESSION: Adequate ultrasound biophysical profile ? [...] M.D. ??03/19/2025 11:51 PM ? Dictation Location[facility] ? Electronically authenticated by: [id number] ??Y ?? Date: 03/19/2025 ??23:51 ? Dictated By: ?Robert Beltrán D.O. ? Signed By: ?03/19/253 ? DD/ ? TD/TT: ? Orchard Sprayer: Procedure Note Radiology, Radiologist, MD - 03/19/[address] [address] Ultrasound Report Signed Patient: MADHU RENDON [facility]#: [id number] : 1985Acct:[id number] Age/Sex: 39 / FADM Date: 03/19/25 Loc: US Attending Dr: Mya Herrmann D.O. Ordering Physician: Mya Herrmann D.O. Date of Service: 03/19/25 Procedure(s): US OB growth Accession Number(s): [id number] cc: Mya Herrmann D.O.; Physician,Non-Staff [place] [address] Patient Name: MADHU RENDON MRN: [facility]:[id number] date: 1985 Sex: F Assigned Patient Location: US Current Patient Location: Accession/Order Number: [id number] Exam Date: 03/19/2025 19:20 Report Date: 03/19/2025 23:51 At the request of: MYA HERRMANN DO Procedure: US OB growth Ultrasound biophysical profile HISTORY: Third trimester Adequate breathing movement, gross body movement, tone and amniotic fluid volume for total score of 8 out of 8. The amniotic fluidindex is 13.7cm within normal limits. The heart rate 145 bpm. US/US OB growth IMPRESSION: Adequate ultrasound biophysical profile Limited ultrasound [...] Beltrán M.D. 03/19/2025 11:51 PM Dictation Location: [place] [address] Electronically authenticated by: [id number] Y Date: 3:51 Dictated By: Robert Beltrán D.O. Signed By:03/19/252352 DD/ 50 TD/TT: Orchard Sprayer: Authorizing ProviderResult TypeResult StatusCorecarmen Herrmann DOCLINISYNC IMAGINGFinal Result * US OB BPP W NON-STRESS (03/19/2025 11:51 PM EST) Only the most recent of5 resultswithin the time period is included. Anatomical RegionLateralityModalityOtherSpecimen (Source)Anatomical Location / LateralityCollection Method / VolumeCollection TimeReceived Time03/19/2025 11:51 PM EST Narrative 03/19/2025 11:53 PM EST [facility] ?[address] ? [place] [address] ? Ultrasound Report ? Signed ? Patient: MADHU RENDON S ?MR#: [id number] ?? : 1985 ?Acct:[id number] ?? Age/Sex: 39 / F ?ADM Date: 03/19/25 ?? Loc: US ? Attending Dr: Mya Herrmann D.O. ? Ordering Physician: Mya Herrmann D.O. ?? Date of Service: 03/19/25 ?? Procedure(s): US OB BPP w non-stress ?? Accession Number(s): [id number] ? cc: Mya Herrmann D.O.; Physician,Non-Staff M.D. ? [facility] ? [address] ? [place] [address] ? Patient Name: ?? MADHU RENDON ? MRN: [facility]:[id number] ? date: 1985 ?Sex: F ?? Assigned Patient Location: [facility] ?? Current Patient Location: ? Accession/Order Number: [id number] ?? Exam Date: 03/19/2025 ??19:20 ?Report Date: [...] M.D. ??03/19/2025 11:51 PM ? Dictation Location: [facility] ? Electronically authenticated by: [id number] ??Y ?? Date: 03/19/2025 ??23:51 ? Dictated By: ?Robert Beltrán D.O. ? Signed By: ?03/19/253 ? DD/ 2351 ? TD/TT: ? Orchard Sprayer: Procedure Note Radiology, Radiologist, - 03/19/2025 [place] [address] Ultrasound Report Signed Patient: MADHU RENDON SMR#: [id number] : 1985Acct:[id number] Age/Sex: 39 / FADM Date: 03/19/25 Loc: US Attending Dr: Mya Herrmann D.O. Ordering Physician: Mya Herrmann D.O. Date of Service: 03/19/25 Procedure(s): US OB BPP w non-stress Accession Number(s): [id number] cc: Mya Herrmann D.O.; Physician,Non-Staff M.D. The [place] [id number] Patient Name: MADHU RENDON MRN: [facility]:[id number] date: 1985 Sex: F Assigned Patient Location: [facility] Current Patient Location: Accession/Order Number: [id number] Exam Date: 03/19/2025 19:20 Report Date: 03/19/2025 [...] Beltrán M.D. 03/19/2025 11:51 PM Dictation Location: [facility] Electronically authenticated by: [id number] Y Date: 3:51 Dictated By: Robert Beltrán D.O. Signed By:03/19/252352 DD/ 50 TD/TT: Orchard Sprayer: Authorizing ProviderResult TypeResult StatusCorey Montez DOCLINISYNC IMAGINGFinal [...] OF CARE TEST ENTER/EDIT ORDERABLESFinal Result * ALL THYROID STIM HORMONE (02/17/2025 1:31 PM EDT)ComponentValueRef RangeTest MethodAnalysis TimePerformed AtPathologist SignatureTHYROID STIMULATING HORMONE1.7450.358 - 3.740 uIU/mLTBHSpecimen (Source)Anatomical Location / LateralityCollection Method / VolumeCollection TimeReceived Time02/17/2025 1:31 PM EDT1 1:36 PM EDT Narrative CLIN[facility]NC - 02/17/2025 2:40 PM EDT Authorizing ProviderResult TypeResult StatusCorey Montez DOCLINISYNCFinal Result Performing OrganizationAddressCity/State/ZIP CodePhone Number CLINISYNC [facility] * (ABNORMAL) ALL CBC WITH AUTO DIFF (02/17/2025 1:31 PM EDT)ComponentValueRef RangeTest MethodAnalysis TimePerformed AtPathologist SignatureTBH WBC9.64.0 - 11.0 10 3/uLTBHTBH RBC3.82(L)4.20 - 5.40 10 6/uLTBHTBH HGB12.112.0 - 16.0 g/dL TBHTBH HCT34.6(L)36.0 - 48.0 %TBHTBH MCV90.681.0 - 99.0 fLTBHTBH MCH31.726.7 - 34.0 pgTBHTBH MCHC35.029.9 - 35.2 g/dLTBHTBH RDW13.111.0 - 15.0 %TBHTBH ZHO488 150 - 450 10 3/uLTBHTBH MPV9.79.5 - [...] Montez DOCLINISYNCFinal Result Performing OrganizationAddressCity/State/ZIP CodePhone Number [facility] * Pap Smear (02/14/2022 12:00 AM EDT)Specimen (Source)Anatomical Location / LateralityCollection Method / VolumeCollection TimeReceived TimeSwabCervical swab / Unknown Narrative Authorizing ProviderResult TypeResult StatusFazio Nurse [facility] ObLAB CYTOLOGY ORDERABLESFinal ResultPerforming OrganizationAddressCity/State/ZIP CodePhone Number EXTERNAL LAB from Last 3 Months or Most Recently Relevant to Health Maintenance Insurance Care Teams Team MemberRelationshipSpecialtyStart DateEnd Date Evans Casas MD [address] [place] [address] [facility] - [facility]07/23
--- OUTSIDE RECORDS SUMMARY | 2025-03-23 18:11 | XMS_ITS | Encounter Summary ---
Author Organization [facility] tem Address [id number] [address] [place] [address] Care Team Providers Care Home Health Assistant Name Role Phone Evans Casas DO Primary Care Provider [phone] Encounter Details DateTypeDepartmentCare Team (Latest Contact Info)Wgitezbpprg49/18/2025Travel Social History Tobacco UseTypesPacks/DayYears UsedDateSmoking Tobacco: NeverSmokeless Tobacco: NeverAlcohol UseStandard Drinks/WeekCommentsNot Currently0 (1 standard drink = 0.6 oz pure alcohol)ChildcareAnswerDate DogumvvcIxqeaobdcDhnbkdr86/31/2019 EmploymentAnswerDate KydncxaiWfwiqfsozoBctvdme64/31/2019Hunger ScreeningAnswer Date RecordedWithin the past 12 months we worried whether our food would run out before we got money to buy more.Never True01/01/2025Within the past 12 months the food we bought just didn't last and we didn't have money to get more.Never True01/01/2025Purpose - LifeAnswerDate RecordedPurpose and direction in life Sccyiot17/11/2021Estimated Date of KdiocxctToydnlrvOzh52/05/2026Based on last menstrual period of 07/28/2024Sex and Gender InformationValueDate Recorded Sex Assigned at BirthNot on fileLegal XhaTykzlb79/31/2019 12:25 PM EDTGender IdentityNot on fileSexual OrientationNot on filedocumented as of this encounter Plan of Treatment DateTypeDepartmentCare Team (Latest Contact Info)Wcapphxjlfd85/09/2025 1:30 PM ESTTelemedicine Maternal- Medicine at [facility] [address] [place] [address] Davida Smith, PAPilyC [address] [address] documented as of this encounter Visit Diagnoses Not on filedocumented in this encounter Care Teams Team MemberRelationshipSpecialtyStart DateEnd Date Evans Casas DO PCP - GeneralFamily Medicine07/07/19documented as of this encounter
--- OUTSIDE RECORDS SUMMARY | 2025-03-23 18:11 | XMS_ITS | Encounter Summary ---
Author Organization [facility] Address [address] [facility] [place] [address] Care Team Providers Care Design Drafter Chief Name Role Phone Evans Casas MD Primary Care Provider [phone] Encounter Details DateTypeDepartmentCare Team (Latest Contact Info)Ohmctkbcprh68/11/2025amboo flowsheet [facility] [place] [address] [place] [address] Wilton Herrmann DO [address] [place] [address] Sh[place], [facility]11 Social History Tobacco UseTypesPacks/DayYears UsedDateSmoking Tobacco: NeverSmokeless Tobacco: NeverAlcohol UseStandard Drinks/WeekCommentsNever0 (1 standard drink = 0.6 oz pure alcohol)PHQ-2AnswerDate RecordedPatient Health Questionnaire-2 Score0 03/03/2025Estimated Date of ChyuszgiAnavhisnGpt61/05/2026Based on last menstrual period of 07/28/2024Sex and Gender InformationValueDate RecordedSex Assigned at BirthNot on fileLegal EyfUvwdgq64/15/2023 11:19 PM EDTGender IdentityNot on fileSexual OrientationNot on filedocumented as of this encounter Plan of Treatment DateTypeDepartmentCare Team (Latest Contact Info)Lnrpcsfhzlh06/26/2025 11:10 AM ESTRoutine [facility] [place] [address] [address] [place] [address] Wilton Herrmann, DO [address] [facility] [place] [address] 04/08/2025 1:40 PM ESTRoutine [facility] [place] [address] [place] [address] [place] [address] Wilton Herrmann, [address] [facility] [address] [place], [place] [address] 04/15/2025 1:50 PM ESTRoutine [facility] [place] OBKATHIEN [address] [place] [address] [place] [address] Wilton Herrmann, [address] [facility] [place] [address] documented as of this encounter Visit Diagnoses Not on filedocumented in this encounter Care Teams Team MemberRelationshipSpecialtyStart DateEnd Date Evans Casas MD [address] [place] [address] PCP - GeneralFamily Medicine11/07/23documented as of this encounter
--- OUTSIDE RECORDS SUMMARY | 2025-03-23 18:11 | XMS_ITS | Encounter Summary ---
Author Organization [facility] Address [address] [facility] [place] [address] Care Team Providers Care Top Dyeing Machine Loader Name Role Phone Evans Casas MD Primary Care Provider [phone] Encounter Details DateTypeDepartmentCare Team (Latest Contact Info)Ynqskqeznqr45/20/2025linisync Result Encounter [facility] External Department Unsolicited Mya Herrmann DO [address] [place], [facility]11 Social History Tobacco UseTypesPacks/DayYears UsedDateSmoking Tobacco: NeverSmokeless Tobacco: NeverAlcohol UseStandard Drinks/WeekCommentsNever0 (1 standard drink = 0.6 oz pure alcohol)PHQ-2AnswerDate RecordedPatient Health Questionnaire-2 Score0 03/03/2025Estimated Date of CsojndncWshhkrmkMfb37/05/2026ased on last menstrual period of 07/28/2024Sex and Gender InformationValueDate RecordedSex Assigned at BirthNot on fileLegal IptJhtvsn94/15/2023 11:19 PM EDTGender IdentityNot on fileSexual OrientationNot on filedocumented as of this encounter Plan of Treatment DateTypeDepartmentCare Team (Latest Contact Info)Sxmwmdtsczc53/26/2025 11:10 AM ESTRoutine [facility] [place] [facility] [address] [place] [phone] Mya Herrmann DO [address] [place] [address] 04/08/2025 1:40 PM ESTRoutine [facility] [place] [facility] [address] [facility] [place] [address] Mya Herrmann, DO [address] [facility] [place] [address] 04/15/2025 1:50 PM ESTRoutine [facility] [place] [facility] [address] [facility] [place] [address] Mya Herrmann, DO [address] [facility] [place] [address] documented as of this encounter Procedures Procedure NamePriorityDate/TimeAssociated DiagnosisCommentsUS OB GROWTH 03/19/2025 11:51 PM EST documented in this encounter Results * US OB GROWTH (03/19/2025 11:51 PM EST)Anatomical RegionLateralityModalityOther Specimen (Source)Anatomical Location / LateralityCollection Method / Volume Collection TimeReceived Time03/19/2025 11:51 PM EST Narrative 03/19/2025 11:53 PM EST [facility] ?[address] ? [place] [address] ? Ultrasound Report ? Signed ? Patient: SANNA RENDON ?MR#: [id number] ?? : 1985 ?Acct:[id number] ?? Age/Sex: 39 / F ?ADM Date: 03/19/25 ?? Loc: US ? Attending Dr: Mya Herrmann D.O. ? Ordering Physician: Mya Herrmann D.O. ?? Date of Service: 03/19/25 ?? Procedure(s): US OB growth ?? Accession Number(s): [id number] ? cc: Mya Herrmann D.O.; Physician,Non-Staff M.D. ? [facility] ? [address] ? [place] [address] ? Patient Name: ?? SANNA RENDON ? MRN: [facility]:[id number] ? date: 1985 ?Sex: F ?? Assigned Patient Location: ?? Current Patient Location: ? Accession/Order Number: [id number] ?? Exam Date: 03/19/2025 ??19:20 ?Report Date: [...] M.D. ??03/19/2025 11:51 PM ? Dictation Location: [place] [address] ? Electronically authenticated by: [id number] ??Y ?? Date: 03/19/2025 ??23:51 ? Dictated By: ?Robert Beltrán D.O. ? Signed By: ?03/19/253 ? DD/ 50 ? TD/TT: ? Coal Tower Operator: Procedure Note Radiology, Radiologist, MD - 03/19/2025 [place] [address] Ultrasound Report Signed Patient: SANNA RENDON [facility]#: [id number] : 1985Acct:[id number] Age/Sex: 39 / FADM Date: 03/19/25 Loc: US Attending Dr: Mya Herrmann D.O. Ordering Physician: Mya Herrmann D.O. Date of Service: 03/19/25 Procedure(s): US OB growth Accession Number(s): [id number] cc: Mya Herrmann D.O.; Physician,Non-Staff Tamia [address] [address] Patient Name: SANNA RENDON MRN: [id number] date: 1985 Sex: F Assigned Patient Location: US Current Patient Location: Accession/Order Number: [id number] Exam Date: 03/19/2025 19:20 Report Date: 03/19/2025 [...] Beltrán M.D. 03/19/2025 11:51 PM Dictation Location: [place] [address] Electronically authenticated by: [id number] Y Date: 3:51 Dictated By: Robert Beltrán D.O. Signed By:03/19/252352 DD/ 50 TD/TT: Coal Tower Operator: Authorizing ProviderResult TypeResult StatusCorey Montez DOCLINISYNC IMAGINGFinal Result documented in this encounter Visit Diagnoses Not on filedocumented in this encounter Care Teams Team MemberRelationshipSpecialtyStart DateEnd Date Evans Casas MD [address] [place] [address] PCP - GeneralFamily Medicine11/07/23documented as of this encounter
--- OUTSIDE RECORDS SUMMARY | 2025-03-23 18:11 | XMS_ITS | Encounter Summary ---
Author Organization [facility] tem Address [facility] [address] [place] [address] Care Team Providers Care Sustainable Design Consultant Name Role Phone Evans Casas DO Primary Care Provider [phone] Encounter Details DateTypeDepartmentCare Team (Latest Contact Info)Wxwxgrpdvdi14/12/2025Travel Social History Tobacco UseTypesPacks/DayYears UsedDateSmoking Tobacco: NeverSmokeless Tobacco: NeverAlcohol UseStandard Drinks/WeekCommentsNot Currently0 (1 standard drink = 0.6 oz pure alcohol)ChildcareAnswerDate KqehidvrUqyguepwbGjclnqd01/31/2019 EmploymentAnswerDate KmzxnuimTmddbsdtlnLcfobam67/31/2019Hunger ScreeningAnswer Date RecordedWithin the past 12 months we worried whether our food would run out before we got money to buy more.Never True01/01/2025Within the past 12 months the food we bought just didn't last and we didn't have money to get more.Never True01/01/2025Purpose - LifeAnswerDate RecordedPurpose and direction in life Wgmwwcs65/11/2021Estimated Date of MkusqkzhGxperfvdFkk47/05/2026Based on last menstrual period of 07/28/2024Sex and Gender InformationValueDate Recorded Sex Assigned at BirthNot on fileLegal PbcHrqgjy24/31/2019 12:25 PM EDTGender IdentityNot on fileSexual OrientationNot on filedocumented as of this encounter Plan of Treatment DateTypeDepartmentCare Team (Latest Contact Info)Eyizyhfvdpb67/09/2025 1:30 PM ESTTelemedicine Maternal- Medicine at [facility] [address] [place] [address] Davida Smith, PAPilyC [address] [address] documented as of this encounter Visit Diagnoses Not on filedocumented in this encounter Care Teams Team MemberRelationshipSpecialtyStart DateEnd Date Evans Casas DO PCP - GeneralFamily Medicine07/07/19documented as of this encounter
--- OUTSIDE RECORDS SUMMARY | 2025-03-23 18:11 | XMS_ITS | Encounter Summary ---
Author Organization [facility] Address [address] [facility] [place] [address] Care Team Providers Care Manager Configuration Name Role Phone Evans Casas MD Primary Care Provider [phone] Encounter Details DateTypeDepartmentCare Team (Latest Contact Info)Ntofgslwgfb26/14/2025linisync Result Encounter [facility] External Department Unsolicited Mya Herrmann DO [address] [place], [facility]11 Social History Tobacco UseTypesPacks/DayYears UsedDateSmoking Tobacco: NeverSmokeless Tobacco: NeverAlcohol UseStandard Drinks/WeekCommentsNever0 (1 standard drink = 0.6 oz pure alcohol)PHQ-2AnswerDate RecordedPatient Health Questionnaire-2 Score0 03/03/2025Estimated Date of YninjngqPdjoeuskVxa61/05/2026ased on last menstrual period of 07/28/2024Sex and Gender InformationValueDate RecordedSex Assigned at BirthNot on fileLegal MleXlizjb46/15/2023 11:19 PM EDTGender IdentityNot on fileSexual OrientationNot on filedocumented as of this encounter Plan of Treatment DateTypeDepartmentCare Team (Latest Contact Info)Oqhjlzibqjf36/26/2025 11:10 AM ESTRoutine [facility] [place] [facility] [address] [place] [address] Mya Herrmann DO [address] [place] [address] 04/08/2025 1:40 PM ESTRoutine [facility] [place] [facility] [address] [facility] [place] [address] Mya Herrmann, DO [address] [facility] [place] [address] 04/15/2025 1:50 PM ESTRoutine [facility] [place] [facility] [address] [facility] [place] [address] Mya Herrmann, DO [address] [facility] [place] [address] documented as of this encounter Procedures Procedure NamePriorityDate/TimeAssociated DiagnosisCommentsUS OB BPP W NON-GJGJSQ8603/13/2025 7:55 AM EST documented in this encounter Results * US OB BPP W NON-STRESS (03/13/2025 7:55 AM EST)Anatomical Region LateralityModalityOtherSpecimen (Source)Anatomical Location / Laterality Collection Method / VolumeCollection TimeReceived Time03/13/2025 7:55 AM EST Narrative 03/13/2025 7:[address] [facility] ?[address] ? [place] [address] ? Ultrasound Report ? Signed ? Patient: MADHU RENDON ?MR#: [id number] ?? : 1985 ?Acct:[id number] ?? Age/Sex: 39 / F ?ADM Date: 03/12/25 ?? Loc: US ? Attending Dr: Mya Herrmann D.O. ? Ordering Physician: Mya Herrmann D.O. ?? Date of Service: 03/12/25 ?? Procedure(s): US OB BPP w non-stress ?? Accession Number(s): [id number] ? cc: Mya Herrmann D.O.; Physician,Non-Staff M.D. ? [facility] ? [address] ? [place] [address] ? Patient Name: ?? MADHU RENDON ? MRN: [facility]:[id number] ? date: 1985 ?Sex: F ?? Assigned Patient Location: [facility] ?? Current Patient Location: ? Accession/Order Number: [id number] ?? Exam Date: 03/12/2025 ??19:12 ?Report Date: [...] Dictation Location: RADIO-PC-02 ? Electronically authenticated by: [id number] ??Y ?? Date: 03/13/2025 ??07:55 ? Dictated By: ?Pamela Pisano M.D. ? Signed By: ?03/13/25 0757 ? DD/ 0755 ? TD/TT: ? Infant Teacher: Procedure Note Radiology, Radiologist, - 03/13/2025 [place] [address] Ultrasound Report Signed Patient: MADHU RENDON [facility]#: [id number] : 1985Acct:[id number] Age/Sex: 39 / FADM Date: 03/12/25 Loc: US Attending Dr: Mya Herrmann D.O. Ordering Physician: Mya Herrmann D.O. Date of Service: 03/12/25 Procedure(s): US OB BPP w non-stress Accession Number(s): [id number] cc: Mya Herrmann D.O.; Physician,Non-Staff [place] [id number] Patient Name: MADHU RENDON MRN: [id number] date: 1985 Sex: F Assigned Patient Location: [facility] Current Patient Location: Accession/Order Number: [id number] Exam Date: 03/12/2025 19:12 Report Date: 03/13/2025 [...] Pisano M.D. 03/13/2025 7:55 AM Dictation Location: [place] [address] Electronically authenticated by: [id number] Y Date: 507:55 Dictated By: Pamela Pisano M.D. Signed By:03/13/25 0757 DD/ 4 TD/TT: Infant Teacher: Authorizing ProviderResult TypeResult StatusCorecarmen Herrmann DOCLINISYNC IMAGINGFinal Result documented in this encounter Visit Diagnoses Not on filedocumented in this encounter Care Teams Team MemberRelationshipSpecialtyStart DateEnd Date Evans Casas MD [address] [place] [address] [place] [address] [phone] (work) PCP - [facility] Medicine11/07/23documented as of this encounter
--- OUTSIDE RECORDS SUMMARY | 2025-03-23 18:11 | XMS_ITS | Clinical Summary ---
Author Organization [facility] Address [address] [place] [address] Care Team Providers Care Carpenter Ship Name Role Phone Jonny Wilcox MD Unavailable [phone] Cosmo Elliott MD Unavailable [phone] Davida Restrepo RN Unavailable [phone] Evans Casas DO Primary Care Provider [phone] Allergies Active AllergyReactionsCriticalityNoted DateCommentsCiprofloxacinOther: See Comments,Tvsamot9405/19/2019 Dizziness, weakness sweating Ciprofloxacin-FluocinoloneOther: See Ryniweoo85/20/2020 Dizziness, weakness sweating LactalbuminUnknown,GI UhfpsAcb51/26/2018 Crampy and gassy LactoseGI Upset09/10/2017 Diarrhea MilkOther: See LnlubrzlOea53/26/2018 Crampy and gassy Diarrhea Other reaction(s): GI Upset Crampy and gassy Milk Containing Products (Dairy)Other: See RdenvwiaJhy67/26/2018 Crampy and gassy Diarrhea Other reaction(s): GI Upset Crampy and gassy Seasonal AllergiesGI Upset,Other: See Qnzcapcw46/06/2021 Medications MedicationSigDispense QuantityRefillsLast FilledStart DateEnd DateStatus multivitamin [...] MEAL(S)Active Active Problems ProblemNoted DateDiagnosed DateAntiphospholipid antibody owggqost48/29/2025 Vitamin D hnayypfxlq18/29/2025Primary hypercoagulable state08/01/2022VA, old, speech/language avhgywk2308/01/2022Iron deficiency anemia secondary to blood loss (chronic)03/27/2022Iron deficiency anemia of bwqjnmpji71/28/2022nti-cardiolipin antibody jpcovonb02/29/2018Migraine with aura and without status migrainosus, not dtumamngkfe18/16/2018Antiphospholipid antibody /14/2018Fatigue 12/29/2016Pain in joint12/29/2016Estimated Date of DeliveryCommentsYes 07/28/2024 Encounters DateTypeDepartmentCare ZutxCyhguhjboct73/03/2025 11:30 AM ESTVisit (SP) Office Hematology/Oncology [address] [place] [address] [place] [address] 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 APRN.IT SECURITY ANALYST Antiphospholipid antibody positive (Primary Dx); Iron deficiency anemia secondary to blood loss (chronic); Vitamin D deficiency; Primary hypercoagulable state (HCC); CVA, old, speech/language deficit; Gestational diabetes mellitus (GDM) in third trimester, gestational diabetes method of control unspecified (HCC); History of hemorrhage; Anemia complicating , third trimester (HCC)03/02/20254899Sbwwrb07/02/2025 Telephone Hematology/Oncology [address] [place] [address] [place] [address] Rachael Johnson RN Ptftbda2401/26/2025Telephone Hematology/Oncology [address] [place] [address] [place] [address] Rachael Johnson RN 12/23/2024 11:30 AM EDTVisit (SP) Office Hematology/Oncology [address] [place] [address] [place] [address] 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 APRN.IT SECURITY ANALYST Antiphospholipid antibody positive (Primary Dx); Iron deficiency [...] drink = 0.6 oz pure alcohol)PHQ-2AnswerDate RecordedPHQ-2 wqqth1824Area Deprivation Index AnswerDate RecordedNational Score (1-100), lower number is lower risk58 09/28/2022State Score (1-10), lower number is lower bolp4843Data from: https://www.neighborhoodatlas.medicine.[facility].edu/. Last address used for bl[address]Estimated Date of DeliveryCommentsYes 07/28/2024Sex and Gender InformationValueDate RecordedSex Assigned at BirthNot on fileLegal ZllBseyjg86/29/2018 10:06 AM ESTGender IdentityNot on fileSexual OrientationNot on fileOccupationIndustryJob Start DateJob End Datestay at home momNot on fileNot on fileNot on file Last Filed Vital Signs Vital SignReadingTime TakenCommentsBlood Tbtmhetx792/7911 11:56 AM EST Tdrjn539603/02/2025 11:56 AM ZANMspnkxwwgds01.2 ??C (97.2 ??F)03/02/2025 11:56 AM ESTRespiratory Obwj978105/02/2024 11:56 AM ESTOxygen Wnadyukzax70%03/02/2025 11:56 AM ESTInhaled Oxygen Concentration--Uatipi67.2 kg (214 lb 4.6 oz)03/02/2025 11:56 AM DWNEzptby988.7 cm (5' 6.02 )12/23/2024 11:34 AM EDTBody Mass Index34.56 12/23/2024 11:34 AM EDT Plan of Treatment DateTypeDepartmentCare Team (Latest Contact Info)Cyvrornnqcl87/05/2025 9:15 AM ESTOffice Visit [facility] [address] [place] [address] [place] [address] Return in 4 weeks lab and possible iron - needs this date/time04/03/2025 9:40 AM ESTVisit (SP) Office Hematology/Oncology [address] [place] [address] [place] [address] Salvador Dos Santos MD [address] [place] [address] [place] [address] Return in 4 weeks lab and possible iron - needs this date/time04/03/2025 10:00 AM [facility] Hematology/Oncology [address] [place] [address] [place] [address] Return in 4 weeks lab and possible iron - needs this date/timeHealth Maintenance Due DateLast DoneCommentsAnxiety Ofrurdyiq02/24/2004Depression Screening 10/22/2003HIV Bmdotbcuy85/24/2004Hepatitis C Hmwhwzomt75/24/2004Hepatitis B Vaccine (1 of 3 - 19+ 3-dose series)2004HPV Vaccine (1 - 3-dose SCDM series)2012Cervical Cancer Jveuohpku69DTaP,Tdap,Td Vaccine (2 - Td or Tdap)5007/03/2014Covid-19 Vaccine (1 - season)2024Influenza Vaccine (#1) (Patient/Parent/Guardian Counseled and Declines)RSV Vaccine (1 - 1-dose 75+ series)2060 Procedures Procedure NamePriorityDate/TimeAssociated DiagnosisCommentsCOMPREHENSIVE METABOLIC QJYRETocmrjx09/03/2025 11:40 AM EST 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) Vitamin D deficiency Primary hypercoagulable state (HCC) CBC + BWJYQbatocc67/03/2025 11:40 AM EST 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) Vitamin D deficiency Primary hypercoagulable state (HCC) VITAMIN D 25 ZGXQIIXPszjqkx27/03/2025 11:40 AM EST 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) Vitamin D deficiency VITAMIN B12 ZCXOKKnfofxo77/26/2025 11:28 AM EDT Primary hypercoagulable state (HCC) CVA, old, speech/language deficit Cerebral hyponatremia Personal history of TIA (transient ischemic attack) IRON + EBYEErvrxoq37/26/2025 11:28 AM EDT Primary hypercoagulable state (HCC) CVA, old, speech/language deficit Cerebral hyponatremia Personal history of TIA (transient ischemic attack) FERRITIN MDIKtdcmfi65/26/2025 11:28 AM EDT Primary hypercoagulable state (HCC) CVA, old, speech/language deficit Cerebral hyponatremia Personal history of TIA (transient ischemic attack) COMPREHENSIVE METABOLIC GQCSEZqktkog49/26/2025 11:28 AM EDT Primary hypercoagulable state (HCC) CVA, old, speech/language deficit Cerebral hyponatremia Personal history of TIA (transient ischemic attack) CBC + JXFHTdpcscq51/26/2025 11:28 AM EDT Primary hypercoagulable state (HCC) CVA, old, speech/language deficit Cerebral hyponatremia Personal history of TIA (transient ischemic attack) from Last 3 Months Results * VITAMIN D 25 HYDROXY (03/02/2025 11:40 AM EST)ComponentValueRef RangeTest MethodAnalysis TimePerformed AtPathologist SignatureVitamin D 25 Wcqvugh51.6 31.0 - 80.0 ng/mL03/02/2025 9:47 PM [facility]EAST [facility] LABSpecimen (Source)Anatomical Location / LateralityCollection Method / VolumeCollection TimeReceived TimeBloodBLOOD SPECIMEN / UnknownVenipuncture / Gjzngdn0303/02/2025 11:40 AM EST03/02/2025 11:41 AM EST Narrative Authorizing ProviderResult TypeResult StatusHolly Arsh OCHOACNPLABORATORY Final ResultPerforming OrganizationAddressCity/State/ZIP CodePhone Number [facility] [address] * (ABNORMAL) COMPREHENSIVE METABOLIC PANEL (03/02/2025 11:40 AM EST) Only the most recent of2 resultswithin the time period is included. ComponentValueRef RangeTest MethodAnalysis TimePerformed AtPathologist Signature Protein, Total7.26.3 - 8.0 g/dL03/02/2025 2:01 PM ESTNOR[facility]CO[facility] LABAlbumin4.13.9 - 4.9 g/dL03/02/2025 2:01 PM ESTNOR[facility]CO[facility] LABCalcium, Total10.3(H)8.5 - 10.2 mg/dL03/02/2025 2:01 PM EST [facility] LABBilirubin, Total0.20.2 - 1.3 mg/dL 03/02/2025 2:01 PM ESTNOR[facility]COAALEDA [facility]. [facility] LABAlkaline Phosphatase 6434 - 123 U/L105/02/2024 2:01 PM [facility]MY[facility] BLANWN20 (L)13 - 35 U/L105/02/2024 2:01 PM [facility] SBCEWB133 - 38 U/L105/02/2024 2:01 PM [facility] BVBTyyiokn39(L) 74 - 99 mg/dL03/02/2025 2:01 PM [facility] LABComment: The [place] Diabetes Association (ADA) provides guidance for cutoff [...] Standards of Medical Care in Diabetes 2016, [place] Diabetes Association. Diabetes Care. 2016.39(Suppl 1). BUN97 - 21 mg/dL03/02/2025 2:01 PM [facility] Creatinine0.54(L)0.58 - 0.96 mg/dL03/02/2025 2:01 PM [facility] DMDWjbxdz835(L)136 - 144 mmol/L105/02/2024 2:01 PM [facility] LABPotassium3.93.7 - 5.1 mmol/L105/02/2024 2:01 PM [facility] EOTJsauiznv50(L)98 - 107 mmol/L105/02/2024 2:01 PM [facility] ONTFI411(L)22 - 30 mmol/L105/02/2024 2:01 PM [facility] LABAnion Sma181 - 15 mmol/L105/02/2024 2:01 PM [facility] LABEstimated Glomerular Filtration Txvq300>=60 mL/min/1.73m 03/02/2025 2:01 PM [facility] LABComment:Estimated Glomerular Filtration Rate (eGFR) is [...] VolumeCollection TimeReceived TimeBloodBLOOD SPECIMEN / UnknownVenipuncture / Azmxadd6503/02/2025 11:40 AM EST03/02/2025 11:41 AM EST Narrative Authorizing ProviderResult TypeResult StatusHolly Arsh HATHAWAYN.CNPLABORATORY Final ResultPerforming OrganizationAddressCity/State/ZIP CodePhone Number [facility] [address] [place] [address] * (ABNORMAL) COMPLETE BLOOD COUNT AND DIFFERENTIAL (03/02/2025 11:40 AM EST) Only the most recent of2 resultswithin the time period is included. ComponentValueRef RangeTest MethodAnalysis TimePerformed AtPathologist Signature WBC8.643.70 - 11.00 k/uL03/02/2025 11:50 AM ESTNORTMYM[facility] LABRBC3.71(L)3.90 - 5.20 m/uL03/02/2025 11:50 AM [facility] WAGCduwzygsbq48.611.5 - 15.5 g/dL03/02/2025 11:50 AM ESTNORTMYM[facility] YBCZcypgzgfpq82.0(L)36.0 - 46.0 %03/02/2025 11:50 AM EST [facility] RKFPLP32.980.0 - 100.0 fL03/02/2025 11:50 AM ESTNORTHCASCENSION [facility] NAWVSI63.326.0 - 34.0 pg03/02/2025 11:50 AM ESTNORTHCASCENSION [facility] GPIGNXQ94.230.5 - 36.0 g/dL03/02/2025 11:50 AM [facility] LABRDW-CV13.311.5 - 15.0 %03/02/2025 11:50 AM [facility] LABPlatelet Efapi917099 - 400 k/uL 03/02/2025 11:50 AM [facility] LABMPV9.49.0 - 12.7 fL 03/02/2025 11:50 AM [facility] LABNeutrophils %64.5% 03/02/2025 11:50 AM [facility] LABAbs Neut5.571.45 - 7.50 k/uL03/02/2025 11:50 AM [facility] LABLymphocytes %26.7%03/02/2025 11:50 AM [facility] LABAbs Lymph2.31 1.00 - 4.00 k/uL03/02/2025 11:50 AM [facility] Monocytes %7.3%03/02/2025 11:50 AM [facility] LABAbs Mono0.63<0.87 k/uL03/02/2025 11:50 AM [facility] Eosinophils %0.7%03/02/2025 11:50 AM [facility] LABAbs Eosin0.06<0.46 k/uL03/02/2025 11:50 AM [facility] Basophils %0.3%03/02/2025 11:50 AM [facility] LABAbs Baso0.03<0.11 k/uL03/02/2025 11:50 AM [facility] Immature Granulocytes %0.5%03/02/2025 11:50 AM [facility] LABAbs Immature Gran0.04<0.10 k/uL03/02/2025 11:50 AM [facility] LABNRBC0.0/100 WBC03/02/2025 11:50 AM ESTNOR[facility]CO[facility] LABAbsolute nRBC<0.01<0.01 k/uL03/02/2025 11:50 AM EST [facility] LABDiff EqfxJvbf52/03/2025 11:50 AM EST [facility] LABSpecimen (Source)Anatomical Location / LateralityCollection Method / VolumeCollection TimeReceived TimeBloodBLOOD SPECIMEN / UnknownVenipuncture / Rbopfkd6803/02/2025 11:40 AM EST03/02/2025 11:41 AM EST Narrative Authorizing ProviderResult TypeResult Status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 APRN.CNPLABORATORY Final ResultPerforming OrganizationAddressCity/State/ZIP CodePhone Number [facility] [address] [place] [address] * VITAMIN B12 (12/23/2024 11:28 AM EDT)ComponentValueRef RangeTest Method Analysis TimePerformed AtPathologist SignatureVitamin A85409399 - 1,245 pg/mL 12/23/2024 7:00 PM EDTCADENA [facility] LABSpecimen (Source) Anatomical Location / LateralityCollection Method / VolumeCollection Time Received TimeBloodBLOOD SPECIMEN / UnknownVenipuncture / Vngsfwv4912/23/2024 11:28 AM EDT12/23/2024 11:28 AM EDT Narrative Authorizing ProviderResult TypeResult Status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 APRN.CNPLABORATORY Final ResultPerforming OrganizationAddressCity/State/ZIP CodePhone Number [facility] [address] [address], * (ABNORMAL) IRON AND TIBC (12/23/2024 11:28 AM EDT)ComponentValueRef RangeTest MethodAnalysis TimePerformed AtPathologist NrgrbneugFtru1933 - 186 ug/dL 12/23/2024 6:45 PM EDTCAD[facility] MTSWJLB299(H)232 - 386 ug/dL12/23/2024 6:45 PM EDTCADENA [facility] LABTransferrin Aemeeapqsz98.315.0 - 57.0 %12/23/2024 6:45 PM EDTCADENA [facility] LABSpecimen (Source)Anatomical Location / LateralityCollection Method / Volume Collection TimeReceived TimeBloodBLOOD SPECIMEN / UnknownVenipuncture / Jvknsik6112/23/2024 11:28 AM EDT12/23/2024 11:28 AM EDT Narrative Authorizing ProviderResult TypeResult Status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 APRN.CNPLABORATORY Final ResultPerforming OrganizationAddressCity/State/ZIP CodePhone Number [facility] [address] [place] [id number], * FERRITIN (12/23/2024 11:28 AM EDT)ComponentValueRef RangeTest MethodAnalysis TimePerformed AtPathologist GscvnsbcmHfmvwstk83.514.7 - 205.1 ng/mL12/23/2024 7:00 PM EDBUC[facility] LABSpecimen (Source)Anatomical Location / LateralityCollection Method / VolumeCollection TimeReceived Time BloodBLOOD SPECIMEN / UnknownVenipuncture / Ypwhrsf7912/23/2024 11:28 AM EDT 12/23/2024 11:28 AM EDT Narrative Authorizing ProviderResult TypeResult Chester Caban APRN.CNPLABORATORY Final ResultPerforming OrganizationAddressCity/State/ZIP CodePhone Number [facility] [address] [place] [address], from Last 3 Months Insurance Care Teams Team MemberRelationshipSpecialtyStart DateEnd Date Evans Casas DO [address] [facility] [place] [address] PCP - GeneralFamily Uuezutjo11/3/22 Jonny Wilcox MD [address] [place] [address] Primary Staff PhysicianCardiology07/16/18 [place] [address] [place], [place] [id number] PhysicianHematology/Oncology09/14/21 Davida Restrepo, RN [address] [place] [address] Specialty Care CoordinatorHematology/Oncology09/14/21
--- OUTSIDE RECORDS SUMMARY | 2025-03-23 18:11 | XMS_ITS | Encounter Summary ---
Author Organization [facility] tem Address [id number] [address] [place] [address] Care Team Providers Care Multifocal Button Generator Name Role Phone Augusto Evans Tony DO Primary Care Provider [phone] Encounter Details DateTypeDepartmentCare Team (Latest Contact Info)Noeiwxccflp34/18/2025Orders Only [facility], A Department of [address] [address] Ref Prov, [place] [address] Social History Tobacco UseTypesPacks/DayYears UsedDateSmoking Tobacco: NeverSmokeless Tobacco: NeverAlcohol UseStandard Drinks/WeekCommentsNot Currently0 (1 standard drink = 0.6 oz pure alcohol)ChildcareAnswerDate XgfbdfwuVzdmgfqfhLztvkyg07/31/2019 EmploymentAnswerDate IeaijejnGflzvdefsgMzhiqzq89/31/2019Hunger ScreeningAnswer Date RecordedWithin the past 12 months we worried whether our food would run out before we got money to buy more.Never True01/01/2025Within the past 12 months the food we bought just didn't last and we didn't have money to get more.Never True01/01/2025Purpose - LifeAnswerDate RecordedPurpose and direction in life Tceuazy47/11/2021Estimated Date of PruzmhsgKokahbtlCtc72/05/2026Based on last menstrual period of 07/28/2024Sex and Gender InformationValueDate Recorded Sex Assigned at BirthNot on fileLegal YxmThrwlc27/31/2019 12:25 PM EDTGender IdentityNot on fileSexual OrientationNot on filedocumented as of this encounter Plan of Treatment DateTypeDepartmentCare Team (Latest Contact Info)Ljxkehilycz70/09/2025 1:30 PM ESTTelemedicine M[facility]- [facility] at [facility] [address] [place] [address] Davida Smith PA-C [address] [facility] [address] [place] [address] documented as of this encounter Procedures Procedure NamePriorityDate/TimeAssociated DiagnosisCommentsEXTERNAL LAB ORDERS / JFZQUCTRmxnhzk80/18/2025 4:22 PM ESTdocumented in this encounter Results * External Lab Orders / Results (03/17/2025 4:22 PM EST) Narrative Authorizing ProviderResult TypeResult StatusNot In System Ref ProvLAB ORDERABLES Final ResultPerforming OrganizationAddressCity/State/ZIP CodePhone Number MANUALLY TRANSCRIBED RESULTS documented in this encounter Visit Diagnoses Not on filedocumented in this encounter Care Teams Team MemberRelationshipSpecialtyStart DateEnd Date Evans Casas DO PCP - GeneralFamily Medicine07/07/19documented as of this encounter
--- OUTSIDE RECORDS SUMMARY | 2025-03-23 18:11 | XMS_ITS | Clinical Summary ---
Author Organization [employer]s tem Address [facility] [id number] [address] [place] [address] Care Team Providers Care Oil Developer Name Role Phone Evans Casas DO Primary Care Provider [phone] Allergies Active AllergyReactionsCriticalityNoted DateCommentsCiprofloxacinDizziness 06/19/2019LactalbuminOther (See Comments)Low05/25/2017 Other reaction(s): GI Upset Crampy and gassy LactoseGI Pmeazkyijzo61/14/2018 Diarrhea Milk Containing Products (Dairy)Other (See Comments)Low05/25/2017 [...] in second trimester controlled on oral hypoglycemic drug12/17/20244128Hgdptr78/08/2025MA (advanced maternal age) multigravida 35+11/04/2024ntiphospholipid syndrome 11/04/20245555Hrzrwzqyguo05/08/0205Xvkemu14/08/2025ntiphospholipid syndrome complicating , cvoizmrckx39/09/2020Estimated Date of Delivery YtzsqlpwNsr38/05/2026Based on last menstrual period of 07/28/2024 Resolved Problems ProblemNoted DateDiagnosed DateResolved DateCerebral infarction, unspecified Migraine without aura and without status migrainosus, not azldvulbblc77 Encounters DateTypeDepartmentCare YnexJsbfcwfwevl61/18/2025 2:00 PM ESTTelemedicine [facility] Department of [address] [address] Sam Callahan MD MPH Antiphospholipid syndrome complicating , antepartum (Primary Dx); Antiphospholipid syndrome; History of CVA (cerebrovascular accident); Coordination of complex care; 33 weeks gestation of ogtptdxgz51/18/2025Orders Only [facility] Department of [address] [address] Ref Prov, Not In System 03/17/20254133Oqqnyb44/12/2025 9:45 AM ESTTelemedicine Maternal- Medicine at [address] [address] Sana Palma MD Khurshid, Nauman, MD Gestational diabetes mellitus (GDM) in second trimester controlled on oral hypoglycemic drug (Primary Dx); Antiphospholipid bewtqlay31/12/2624Owxndf63/07/3937Pkwgwt88/23/2025Orders Only [facility] Department of [address] [address] Ref Prov, Not In System 02/18/2025Orders Only [facility] Department of [address] [address] Ref Prov, Not In System 02/16/2025 1:45 PM EDTOffice Visit [facility] Department of [address] [address] Sam Callahan MD MPH Antiphospholipid syndrome (Primary Dx); Antiphospholipid syndrome complicating , antepartum; History of CVA (cerebrovascular accident); Coordination of complex care; 29 weeks gestation of ilspeymph41/20/9310Crpqtu53/14/2025Telephone Maternal- Medicine at [facility] [address] [place] [address] Annita Kendall LD 02/06/2025 2:00 PM EDTTelemedicine Maternal- Medicine at [facility] [address] [place] [address] Wilfrid Medina MD 27 weeks gestation of (Primary Dx); Multigravida of advanced maternal age in third trimester; Gestational diabetes mellitus (GDM) in second trimester controlled on oral hypoglycemic drug; Antiphospholipid syndrome complicating , antepartum; Antiphospholipid bafyrkwo39/10/9506Bepftk14/09/6301Hoozke68/16/2025 10:00 AM EDT Telemedicine Maternal- Medicine at [facility] [address] [place] [address] Davida Smith, YONYC Gestational diabetes mellitus (GDM) in second trimester controlled on oral hypoglycemic drug (Primary Dx); Antiphospholipid syndrome; Other specified hypothyroidism; Antiphospholipid syndrome complicating , igocfpgxxg57/16/2025Travel 01/09/2025Telephone Maternal- Medicine at [facility] [address] [place] [address] Wilfrid Medina MD 01/09/2025Orders Only Maternal- Medicine at [facility] [address] [place] [address] Wilfrid Medina MD Antiphospholipid syndrome (Primary Dx)01/07/2025Telephone Maternal- Medicine at [facility] [address] [place] [address] Jacque Pat RN 01/06/2025Telephone Maternal- Medicine at [facility] [address] [place] [phone] Margo Khan RN 01/05/2025Orders Only Maternal- Medicine at [facility] [address] [place] [address] Jacque Pat RN Multigravida of advanced maternal age in second trimester (Primary Dx); Antiphospholipid syndrome complicating , antepartum; Gestational diabetes mellitus (GDM) in second trimester controlled on oral hypoglycemic drug; AMA (advanced maternal age) multigravida 35+, second trimester; Hypothyroidism, unspecified type; History of stroke; History of loss in prior , currently in second trimester; Hypothyroidism affecting in second trimester; Family history of autism; Lgrbzotzvyvw42/08/2025Documentation Maternal- Medicine at [place] [address] [place] [address] Jacque Pat RN 01/01/2025 2:30 PM EDTTelemedicine Maternal [facility] [place] [address] [phone] Wilfrid Medina MD 22 weeks gestation of (Primary Dx); Antiphospholipid syndrome complicating , antepartum; History of stroke; History of loss in prior , currently in second trimester; Gestational diabetes mellitus (GDM) in second trimester controlled on oral hypoglycemic drug; Multigravida of advanced maternal age in second trimester; Hypothyroidism affecting in second trimester; Family history of autism; Ramfypsqyils77/04/2025Orders Only [facility] [place] [address] [phone] Iraida Warren RN Multigravida of advanced maternal age in second trimester (Primary Dx); Antiphospholipid syndrome complicating , antepartum; Gestational diabetes mellitus (GDM) in second trimester controlled on oral hypoglycemic drug; Insulin controlled gestational diabetes mellitus (GDM) in second trimester; AMA (advanced maternal age) multigravida 35+, second trimester; Hypothyroidism, unspecified type01/01/20257959Yrrfsf01/29/2025Orders Only [facility] - Labor [address] [place] [phone] Wilfrid Medina MD Gestational diabetes mellitus (GDM) in second trimester controlled on oral hypoglycemic drug (Primary Dx)12/26/2024Telephone Maternal- Medicine at [facility] [address] [place] [phone] Stephanie Quiros LD from Last 3 Months Family History Medical AegczooTjythaouIrubTrlezdaiXcwgpukuKvdaxtJ8UFOaqaljNphnznGyfzgd illness Maternal GrandmotherCancerPaternal GrandfatherDiabetesPaternal VxdqslzjlwrO7NJ CancerPaternal GrandmotherDiabetesPaternal NfsumzaoimdZ9AZWvfrxqosCiosckJ2LQ RelationNameStatusCommentsFatherDeceasedMaternal GrandmotherPaternal Grandfather Paternal GrandmotherSister Social History Tobacco UseTypesPacks/DayYears UsedDateSmoking Tobacco: NeverSmokeless Tobacco: Never Tobacco Cessation:Counseling Given: Not Answered Alcohol UseStandard Drinks/WeekCommentsNot Currently0 (1 standard drink = 0.6 oz pure alcohol)ChildcareAnswerDate EihpktueDbadkfukvAdecrbo98/31/2019Employment AnswerDate AdntnskhTrnjoqkivjFfyjnsh79/31/2019Hunger ScreeningAnswerDate RecordedWithin the past 12 months we worried whether our food would run out before we got money to buy more.Never True01/01/2025Within the past 12 months the food we bought just didn't last and we didn't have money to get more.Never True01/01/2025Purpose - LifeAnswerDate RecordedPurpose and direction in life Zgtxtui39/11/2021Estimated Date of FlmlgoqhWyfoyskbOjp88/05/2026Based on last menstrual period of 07/28/2024Sex and Gender InformationValueDate Recorded Sex Assigned at BirthNot on fileLegal EznJajhiy78/31/2019 12:25 PM EDTGender IdentityNot on fileSexual OrientationNot on file Last Filed Vital Signs Vital SignReadingTime TakenCommentsBlood Uwjyipmz796/801 1:44 PM EDT Siibv627302/16/2025 1:44 PM EDTTemperature--Respiratory Rsrs7831 1:44 PM EDTOxygen Saturation--Inhaled Oxygen Concentration--Dynwkx96.8 kg (209 lb) 02/16/2025 1:44 PM PZAZifkdh137.6 cm (5' 6 )02/16/2025 1:44 PM EDTBody Mass Index33.7302/16/2025 1:44 PM EDT Plan of Treatment DateTypeDepartmentCare Team (Latest Contact Info)Najhwuyqywb76/09/2025 1:30 PM ESTTelemedicine Maternal- Medicine at [facility] [address] [place] [phone] Davida Smith PA-C [address] [address] Health MaintenanceDue DateLast DoneCommentsDepression Utvcgrmjj19/24/1998Adult BMI Follow Up Plan10/22/2003DTaP,Tdap and Td Vaccines (2 - Td or Tdap)07/03/2024 07/03/2014Influenza Ognwoqz1512/29/2024Pap SmearSV ( or age 60+ yrs) (1 - Risk 1-dose series)03/09/2025dult BMI Screening Tobacco Sknlsfxqi88 Medical Devices Not on file Procedures Procedure NamePriorityDate/TimeAssociated DiagnosisCommentsEXTERNAL LAB ORDERS / JWVDXTOZwmdvca73/18/2025 4:22 PM ESTEXTERNAL LAB ORDERS / RESULTSRoutine 02/19/2025 3:15 PM EDTEXTERNAL LAB ORDERS / GJLECEKIpsttei33/23/2025 3:13 PM EDT EXTERNAL LAB ORDERS / MPGUNOHQmwzsni70/22/2025 1:58 PM EDTUS MFM OB FOLLOW-UP, 1 RVSXHWlbfadj56/09/2025 2:10 PM EDT Multigravida of advanced maternal age in second trimester Antiphospholipid syndrome complicating , antepartum Gestational diabetes mellitus (GDM) in second trimester controlled on oral hypoglycemic drug Insulin controlled gestational diabetes mellitus (GDM) in second trimester AMA (advanced maternal age) multigravida 35+, second trimester Hypothyroidism, unspecified type [facility] SBTKFRBpelzjj24/04/2025 2:24 PM EDT Screening, , for anatomic survey Multigravida of advanced maternal age in second trimester from Last 3 Months Results * External Lab Orders / Results (03/17/2025 4:22 PM EST) Only the most recent of4 resultswithin the time period is included. Narrative Authorizing ProviderResult TypeResult StatusNot In System Ref ProvLAB ORDERABLES Final ResultPerforming OrganizationAddressCity/State/ZIP CodePhone Number MANUALLY TRANSCRIBED RESULTS * [facility] OB FOLLOW-UP, 1 FETUS (02/05/2025 2:10 PM EDT) Only the most recent of2 resultswithin the time period is included. Anatomical RegionLateralityModalityOB-GYNUltrasoundSpecimen (Source)Anatomical Location / LateralityCollection Method / VolumeCollection TimeReceived Time 02/05/2025 1:21 PM EDT Narrative 02/06/2025 5:22 PM EDT NAME: ??JUSTICE LEUNG : 1985 SEX: F Accession Number: [id number] ORDERING PHYSICIAN: MYA MASSEY REFERRING PHYSICIAN: MYA MASSEY Coding Procedures ? 60152: Ultrasound, uterus, real time with image documentation, follow up,transabdominal ? approach per fetus ? 99400: Echocardiography, , cardiovascular system, real time with image documentation (2D), with or ? without M-mode recording; follow-up or repeat study Indication Screening for follow-up survey, Screening for congenital cardiac abnormality , Gestational diabetes, AMA- Supervision of elderly , Supervision of high risk -(MOB son - hypospadia, MOB -son - laryngomalacia ), Obesity in , Hypothyroidism. History OB History ? 7. Para 3 ? [id number] Current Cell free DNA ?Low Risk analysis [...] (oz) ? 4 oz EFW by: ?Hadlock (TJU-VY-RC-FL) Extended Tibia ??46.0 mm 28w 0d 68% [...] Heart/Thorax: 4-chamber view. RVOT view. 3-vessel view. 8-dezhdd-xkdiyvu view. Great vessels. ? Right lung. Left [...] previously RVOT view ?normal 3-vessel view ??normal 0-nnrbha-aioyhyh view ??normal Aortic arch view ? normal [...] primary OB provider unless otherwise specified by [facility]. Results forwarded to ordering provider so they can follow up with the patient as necessary. Procedure Note Lala Gross MD - 02/06/2025 NAME: JUSTICE LEUNG : 1985 SEX: F Accession Number: [id number] ORDERING PHYSICIAN: MYA MASSEY REFERRING PHYSICIAN: MYA MASSEY Coding Procedures 63451: Ultrasound, uterus, real time with image documentation, follow up, transabdominal approach per fetus 27648: Echocardiography, , cardiovascular system, real timewith image documentation (2D), with or without M-mode recording; follow-up or repeat study Indication Screening for follow-up survey, Screening for congenital cardiacabnormality , Gestational diabetes, AMA- Supervision of elderly , Supervision of high risk -(MOB son - hypospadia, MOB -son - laryngomalacia ), Obesity in , Hypothyroidism. History OB History 7. Para 3 [id number] Current Cell free DNA Low Risk analysis [...] EFW (oz) 4 oz EFW by: Hadlock (FHL-IK-PW-FL) Extended Tibia 46.0 mm 28w 0d 68% [...] Heart/Thorax: 4-chamber view. RVOT view. 3-vessel view. 0-opnxqu-rdzyxflnsxe. Great vessels. Right lung. Left lung. Diaphragm. [...] previously RVOT view normal 3-vessel view normal 1-ksrtlt-ksnrtmg view normal Aortic arch view normal Ductal [...] [facility] recommendations from prior clinical and/or ultrasoundreport documentation. anatomic survey is incomplete (suboptimal spine images) due to late gestational age and suboptimal visualization. Patient is not scheduled to return for additional ultrasound. Pleasereschedule for specific concerns or indications. Subsequent follow up or other follow up as clinically determined byprimary OB provider unless otherwise specified by [facility]. Results forwarded to ordering provider so they can follow up with thepatient as necessary. Authorizing ProviderResult TypeResult StatusCorey Spencer GUTIERREZ US ORDERABLES Final Result from Last 3 Months Insurance Care Teams Team MemberRelationshipSpecialtyStart DateEnd Date Evans Casas DO PCP - GeneralFamily Medicine07/07/19
--- OUTSIDE RECORDS SUMMARY | 2025-03-23 18:11 | XMS_ITS | Clinical Summary ---
Author Organization [facility] Address [address], [address] [place] [address] Care Team Providers Care Sewer Digger Name Role Phone Evans Casas DO Primary Care Provider [phone] Allergies Active AllergyReactionsCriticalityNoted DateCommentsCiprofloxacinOther (See Comments)06/19/2019Ciprofloxacin-Fluocinolone PfOther [...] elevated without history of HTN12/11/2023ry mouth 12/11/2023Environmental rebenuyql09/13/2024H/O: ktnyvzrxuqskws39/13/2024History of onilvd1912/11/2023History of gestational yfletdcn11/13/2024History of kidney ihavbs7112/11/2023Hx of iron deficiency vpybxd9912/11/2023Immunization not carried out because of patient bvrnwcaw65/13/2024Morbid pkumpap7312/11/2023Non-smoker 12/11/2023OSA (obstructive sleep apnea)12/11/2023ight otitis nkbbosk2512/11/2023 Abdominal pain06/12/2023cute bronchitis due to eaanunpqz29/13/2024nxiety 06/12/2023ysfunction of eustachian tube06/12/20235884Hmandah89/13/2024Hematochezia 06/12/2023History of severe acute respiratory syndrome coronavirus 2 (SARS-CoV-2) jhbmvvx4206/12/20238571Hmrtuxywouzm59/13/2024Inhalation fwnnex7906/12/2023 olyklrc4106/12/2023sychogenic ajeqdxdiwqossedb64/13/2024Suspected severe acute respiratory syndrome coronavirus 2 (SARS-CoV-2) dyhspelcv48/13/2024 Primary hypercoagulable state08/01/2022estational diabetes mellitus in , unspecified svqueqk1601/26/2022Genitourinary /22/2022Muscle fgosmogmtcmog88/22/2022TIA (transient ischemic attack)06/16/2020erebrovascular accident (CVA) due to stenosis of middle cerebral xmueyf7702/22/2020Anticoagulant long-term use02/22/2020Acute posthemorrhagic visome7901/16/202039 weeks gestation of svjiczxkr59/18/2020Anemia complicating egzivvrjxs88/18/2020Endocrine, nutritional and metabolic diseases complicating snioboncur25/18/2020First degree perineal laceration during munoldqn79/18/2020Other immediate eeoxofmzqg04/18/2020Personal history of transient ischemic attack (TIA), and cerebral infarction without residual menpmcom32/18/2020Personal history of urinary (tract) petrcuclgm75/18/2020Single live birth01/15/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01/08/202038 weeks gestation of tdlgpvpgy96/09/2020Pruritus, mfygvzmkigl79/04/202037 weeks gestation of rnphoittz49/04/088070 weeks gestation of junyjhvxk44/01/2020Other speech and language deficits following cerebral qkrjubpild51/01/2020Other diseases of the blood and blood-forming organs and certain disorders involving the immune mech anism complicating pnjdmbxunl40/25/776966 weeks gestation of yfcehnivs36/24/2020 34 weeks gestation of ouixrmawg57/18/443639 weeks gestation of 12/10/201932 weeks gestation of clduqiwet77/31/2020Thrombocytopenia, unspecified 11/20/2019Other general symptoms and signs10/28/2019Urinary tract infection, site not eoyyookdu75/18/3339Bbxqrxmqmpzt34/28/2020SVT (supraventricular tachycardia)08/26/2019Antiphospholipid antibody lbksqjek38/09/2020Other bacterial infections of unspecified site06/27/2019Less than 8 weeks gestation of gugyjbwyt26/06/2020Encounter for supervision of normal , unspecified, first cdzallxsy09/30/9425Kgubychexbdr07/17/2020Cerebral infarction, unspecified 05/16/2019Paresthesia of skin05/16/2019Deficiency of other specified B group dirqripw05/17/2020Hypothyroidism, eaudccsatwd98/17/2020Unspecified condition associated with female genital organs and menstrual cycle05/09/2019Vomiting of , oeejkbltzit99/06/2020Other specified noninflammatory disorders of wtsfyi1802/21/2019Frequency of huozajzaogg98/23/2019Unspecified ovarian cyst, right side02/06/2019Coagulation defect, vicaawmxwag59/09/2019Cervicalgia 02/05/2019Long term (current) use of 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/uwahswbkmwaff00/09/2019 Dizziness and lltimznlb11/09/2019Other acute postprocedural pain02/03/2019Pelvic and perineal pain02/01/2019Syncope and vdqboimi20/04/2019Anticardiolipin antibody frtiofmi64/29/2018Migraine without aura and without status migrainosus, not bzpwlvipphi50/16/2018Antiphospholipid antibody dhbemrtm48/14/2018Pain in joint12/29/20167846Oobtxac46/01/2017Idiopathic progressive oofxlxnicu06/01/2017 Resolved Problems ProblemNoted DateDiagnosed DateResolved RkmjWwfas02/ Encounters DateTypeDepartmentCare GdktDdihfvlszsi72/24/2025 2:30 PM EDTOffice Visit [facility] [address] [place] [address] [place] [phone] Peng Osorio MD Antiphospholipid antibody syndrome (Primary [...] InformationValueDate RecordedSex Assigned at BirthNot on fileLegal IyoAwwlla74/14/2017 2:04 PM EDT Gender IdentityNot on fileSexual OrientationNot on file Last Filed Vital Signs Vital SignReadingTime TakenCommentsBlood Tezbtmyv697/6409 2:40 PM EDT Khzfq059501/21/2025 2:40 PM OYXRamgykadewp45.2 ??C (97.2 ??F)02/09/2022 11:22 AM EDTRespiratory Abyl5253 11:22 AM EDTOxygen Qubvfmkuii47%10/04/2020 2:01 PM EDTInhaled Oxygen Concentration--Asyzri86.8 kg (209 lb)01/21/2025 2:40 PM EDT Uhccef465.6 cm (5' 6 )02/09/2022 11:22 AM EDTBody Mass Index33.7302/09/2022 11:22 AM EDT Plan of Treatment DateTypeDepartmentCare Team (Latest Contact Info)Gimomsjmhjg41/25/2026 1:45 PM EDTOffice Visit [facility] [address] [place] [address] [place] [phone] Peng Osorio MD [address] [place] [address] [place] [phone] 6 MOS FUPHealth MaintenanceDue DateLast DoneCommentsDepression Mxzqly2910/21/1997 Varicella vaccine (1 of 2 - 13+ 2-dose series)1998Hepatitis C screen 10/22/2003Hepatitis B vaccine (1 of 3 - 19+ 3-dose series)2004Pap smear 2006Cervical cancer xskfil3410/22/2015HPV (without or with Pap)10/22/2015 DTaP/Tdap/Td vaccine (2 [...] Procedure NamePriorityDate/TimeAssociated DiagnosisCommentsHIV-1,-2 W/REFLEX TO HIV-1 WESTERN APEIHjkinvm76/01/2017 11:49 AM EDT Arthralgia, unspecified joint Fatigue, unspecified type Sensation disorder from Last 3 Months or Most Recently Relevant to Health Maintenance Results * Hiv-1,-2 W/Reflex To Hiv-1 Western Blot (12/29/2016 11:49 AM EDT)Component ValueRef RangeTest MethodAnalysis TimePerformed AtPathologist Signature HIV-1/HIV-2 ZfOjdajundRutmxske15/03/2017 12:03 AM [facility] Comment: Based on the non-reactive anti-HIV (BRENDEN) screen, the HIV Western blot is not indicated and therefore not performed. INTERPRETIVE INFORMATION: HIV-1,-2 w/Reflex to HIV-1 Western Blot This assay should not be used for blood donor screening, associated re-entry protocols, or for screening Human Cells, Tissues and Cellular and Tissue-Based Products (HCT/P). Performed by [employer], [facility] [place] [address] [email or web address], Zhang Bledsoe MD - Lab. Director Specimen (Source)Anatomical Location / LateralityCollection Method / Volume Collection TimeReceived TimeBLOOD SPECIMEN / Rnfzmqv8212/29/2016 11:49 AM EDT 12/29/2016 1:50 PM EDT Narrative Authorizing ProviderResult TypeResult StatusRitiki Monroe MDHEMATOLOGY ORDERABLES Final ResultPerforming OrganizationAddressCity/State/ZIP CodePhone Number [facility] [address] [place] [address], [facility] [phone] from Last 3 Months or Most Recently Relevant to Health Maintenance Insurance Care Teams Team MemberRelationshipSpecialtyStart DateEnd Date Evans Casas DO [address] [place] [address] PCP - GeneralFamily Medicine10/04/20
--- OUTSIDE RECORDS SUMMARY | 2025-03-23 18:11 | XMS_ITS | Encounter Summary ---
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 Name Role Phone Evans Casas MD Primary Care Provider [phone] Encounter Details DateTypeDepartmentCare Team (Latest Contact Info)Ubjcsfylncy31/21/2025Clinisync Result Encounter [facility] Department Unsolicited Wilton Herrmann, DO [address] [place], [place] [id number] Social History Tobacco UseTypesPacks/DayYears UsedDateSmoking Tobacco: NeverSmokeless Tobacco: NeverAlcohol UseStandard Drinks/WeekCommentsNever0 (1 standard drink = 0.6 oz pure alcohol)PHQ-2AnswerDate RecordedPatient Health Questionnaire-2 Score0 03/03/2025Estimated Date of HkjieoeoGenwmjkaHha72/05/2026Based on last menstrual period of 07/28/2024Sex and Gender InformationValueDate RecordedSex Assigned at BirthNot on fileLegal DztKnenuo64/15/2023 11:19 PM EDTGender IdentityNot on fileSexual OrientationNot on filedocumented as of this encounter Functional Status * Over the past 2 weeks, how often have you been bothered by any of the following problems?QuestionAnswerDate of AssessmentAuthorLittle interest or pleasure in doing thingsNot at all03/03/2025 1:52 PM Perta Tabares LPN Feeling down, depressed, or hopelessNot at all03/03/2025 1:52 PM Petra Tabares LPNPatient Health Questionnaire-2 Pqmnw80205/03/2024 1:52 PM Petra Tabares LPN documented as of this encounter Plan of Treatment DateTypeDepartmentCare Team (Latest Contact Info)Mtkjlhzghsm76/26/2025 11:10 AM ESTRoutine [facility] [address] [place] [address] [place] [phone] Wilton Herrmann, [address] [place] [address] 04/08/2025 1:40 PM ESTRoutine [facility]KATH[facility] [address] [place] [address] [place] [phone] Wilton Herrmann, [address] [place] [address] 04/15/2025 1:50 PM ESTRoutine [facility]BGY[facility] [address] [place] [address] [place] [phone] Wilton Herrmann, [address] [place] [address] documented as of this encounter Procedures Procedure NamePriorityDate/TimeAssociated DiagnosisCommentsALL THYROID STIM USHIIDQWgwslxd00/21/2025 1:31 PM EDT ALL CBC WITH AUTO NJFFKyueseo50/21/2025 1:31 PM EDT documented in this encounter [...] - 35.2 g/dLTBHTBH RDW13.111.0 - 15.0 %TBHTBH OWH802 150 - 450 10 3/uLTBHTBH MPV9.79.5 - [...] MemberRelationshipSpecialtyStart DateEnd Date Evans Casas MD [address] [place] [address] PCP - GeneralFamily Medicine11/07/23documented as of this encounter
[2025-03-23 18:14] VITALS: BP 123/68; PULSE 86
--- OUTSIDE RECORDS SUMMARY | 2025-03-23 18:14 | XMS_ITS | CCD ---
Author Organization [facility] CliniSyct Care Team Providers Care Resident Care Associate Name Role Phone CROW MONGE Unavailable Unavailable BIBI CHRISTY Unavailable Unavailable ERIKA LONDON Attending Unavailab ERIKA Haddad Referring Unavailab Haseeb Chavez Attending Unavailable Crow Monge Referring Unavailable Humaira Gaviria MD Primary Care Provider Jonny Wilcox MD Unavailable Penelope CASAS Primary Care Physician Cheri Norwood Unavailable Unavailable Cosmo Elliott MD Unavailable Lauro RN, Davida Unavailable [phone] Penelope Casas Primary Care Provider PENELOPE CASAS Primary Care Unavailable PERVÍCTOR, FALGUNI C Referring Unavailable Humaira Gaviria MD Primary Care Provider Jonny Wilcox MD Unavailable Cosmo Elliott MD R Unavailable Lauro RN, Davida Unavailable [phone] Penelope Casas DO Primary Care Provider [...] Unavailable MONTEZ, DR ROQUE Primary Care Unavailable SPARTANBURG, DR ANGIE [employer] Unavailable MONTEZ, DR [...] DR ROQUE Primary Care Unavailable MONTEZ, DR ROUQE Consulting Unavailable MONTEZ, DR ROQUE Attending Unavailable [...] Care Provider Wilton Herrmann DO Attending Provider [phone] Montez, Wilton Attending Unavailable Montez, Wilton Admitting [...] Unavailable Penelope Casas DO Primary Care Provider [phone] MONTEZ, Wilton R Attending Unavailable MONTEZ, Wilton [...] of OnsetReaction(s) Facility (20 sources)Ciprofloxacin; Translations: [ciprofloxacin]Drug Bdurmwm62-74-2270 Other: See Comments, Unknown, Numbness and tingling sensation of skin (finding), Nausea (finding), Other (See Comments), GI [facility], [facility] (20 sources)Ciprofloxacin / fluocinolone; Translations: [CIPROFLOXACIN-FLUOCINOLONE]Drug Auvuvny52-69-7891Yaskg: See CommentsThe [facility] (20 sources)cow milk allergenic extract; Translations: [MILK]Drug Allergy 33-46-8764Nocwq: See [facility] Work Phone: (20 sources)Lactalbumin; Translations: [LACTALBUMIN]Drug Jnepqsu29-69-3198 Unknown, GI Upset, Other (See Comments)[facility] (20 sources)Lactose; Translations: [LACTOSE]Drug Pcsfbhi40-99-5780XQ Upset, GI DisturbanceThe [facility] Hospital (20 sources)MilkDrug Btfusql58-14-8463Qnkja: See Comments, Other (See Comments) [facility] (6 sources)PenicillinsDrug Kjedtxt89-89-4301BwttlbyIayzbkvew Clinic (20 sources)Seasonal allergy; Translations: [SEASONAL ALLERGIES]Allergy to qxjxktxma60-93-5759WJ Upset, Other: See [facility] Work Phone: (20 sources)Milk Products; Translations: [Milk Products]Drug allergyIllness (finding)[facility] (20 sources)Ciprofloxacin / fluocinoloneDrug Tmgtifz51-28-0103Szpwt (See Comments)[facility] Work Phone: (1 source)Seasonal allergyPropensity to adverse reactions to gelgnqtie96-88-6569 Other (See Comments)[facility] Work Phone: (1 source)Milk-Related CompoundsPropensity to adverse reactions to drug 19-31-3887Fhhqo (See Comments)[facility] Work Phone: (2 sources)PenicillinsDrug Ehlzvuz22-05-4638AsdrfquMifekfvnx Clinic (1 source)CiprofloxacinDrug Xjzljww58-95-4490[facility] (20 sources)Lactose (non-medical use)Propensity to adverse aeenalspg40-62-7622 [facility] (20 sources)Lactose (non-medical use)Drug Efrzihd57-60-0923[facility] (20 sources)OctacosanolDrug Tyiixivejyr70-32-9161[facility] (20 sources)OtherAllergy to eebvdfmjo43-24-6284DjdbvOOIM [facility] Work Phone: (3 sources)MILK CONTAINING PRODUCTS (DAIRY); Translations: [MILK CONTAINING PRODUCTS (DAIRY)]Propensity to adverse reactions to drug (disorder)05-25-2017 [facility] Medications Current Medications MedicationDrug Class(es)DatesSig (Normalized)Sig (Original)acetaminophen 300 mg / codeine phosphate 30 mg oral tablet (1 source)Opioid AgonistStart: 06-61-3058tcdxbmvezmbkz-codeine (TYLENOL #3) 300- 30 MG per tabletAlbuterol (Eqv-ProAir HFA) 90 mcg/inh inhalation aerosol (6 sources)Start: 50-73-0146fyeh 2 puff(s) by inhalation every six hours Albuterol (Eqv-ProAir HFA) 90 mcg/inh inhalation aerosol 2 puff(s), Inhalation, q6hr, 1 EA, Refill(s) 5, [facility], 168, cm, 02/02/24 14:43:00 EDT, Height/Length Dosing, 101.1, kg, 02/02/24 14:43:00 EDT, Weight Dosing Start Date: 02/02/24 Status: Orderedazithromycin 250 mg oral tablet (20 sources)Macrolide AntimicrobialStart: 09-08-2024 End: 75-07-2399dyfyqbcgxyfk (Zithromax Z-Jonny) 250 MG tablet Indications: 5 weeks gestation of ([facility]) As directed 6 tablet 09/08/2024 10/30/2024 Discontinued (Therapy completed)Start: 06-19-2024 End: 24-19-9254Wmrjyisci 250 mg Tab = 1 packet(s), Oral, As Directed, as directed on package labeling, X 5 day(s),# 6 tab(s), Refills(s) 1, Pharmacy: [facility], 168, cm, 06/09/24 14:03:00 EST, Height/Length Dosing, 98.4, kg, 06/19/24 16:19:00 EST, Weight Dosing Start Date: 06/19/24 Stop Date: 06/29/24 Status: OrderedStart: 04-21-2024 End: 11-42-9833vxifyhrfirth (Zithromax Z-Jonny) 250 MG tablet Indications: Upper respiratory tract infection, unspecified type As directed 6 tablet 04/21/2024 05/06/2024 Discontinuedazithromycin 250 mg Tab 5-day Dose Pack (Z-Jonny) (2 sources)Start: 02-02-2024 End: 58-11-0489lgvxjpzucvum 250 mg Tab 5-day Dose Pack (Z-Jonny) = 1 packet(s), Oral, As Directed, as directed on package labeling, X 5 day(s), # 6 tab(s), Refills(s) 0, Pharmacy: [facility], 168, cm, 02/02/24 14:43:00 EDT, Height/Length Dosing, 101.1, kg, 02/02/24 14:43:00 EDT, Weight Dosing Start Date:02/02/24 Stop Date: 02/07/24 Status: OrderedBlood Glucose Monitoring Suppl (D-Care Glucometer) w/Device kit (20 sources)Start: 10-30-2024 End: 20-59-6027Jumtq Glucose Monitoring Suppl (D-Care Glucometer) w/Device kit Indications: Second trimester ([facility]) , 13 weeks gestation of ([facility]) , Multigravida of advanced maternal age in second trimester ([facility]) , Gestational diabetes mellitus (GDM), antepartum, gestational diabetesmethod of control unspecified ([facility]) , Elevated glucose tolerance test 1 kit Daily Use four times daily to check FSBS. In the morning prior to breakfast & 1 hour after each meal for a total tf1nidgv daily. 1 kit 10/30/2024 10/30/2025 Activeblood-glucose meter (BLOOD GLUCOSE MONITORING) kit (20 sources)blood-glucose meter (BLOOD GLUCOSE MONITORING) kit 1 each by other route in the morning. Use to check blood sugar 4 times daily . Activeblood- glucose sensor (FREESTYLE JENIFER 3 PLUS SENSOR) device (13 sources)Start: 24-87-4487eojm 2 doses by mouth onceblood-glucose sensor (FREESTYLE JENIFER 3 PLUS SENSOR) device Indications: Gestational diabetes mellit us (GDM) in second trimester controlled on oral hypoglycemic drug Wear for 15 days and change 2 each 6 12/26/2024 Activecephalexin 500 mg oral tablet (20 sources)Cephalosporin AntibacterialStart: 08-19-2021 End: 63-33-7727jbqw 1 tablet by mouth twice dailycephalexin 500 mg oral tablet 500 mg = 1 tab(s), Oral, BID, X 10 day(s), # 20 tab(s), Refills(s) 0,Pharmacy: [facility], 168, cm, 08/19/21 10:50:00 EDT, [...] suspension (2 sources)Corticosteroid, Quinolone AntimicrobialStart: 10-23-2023 End: 25-98-3730Nqvrisux 0.3%-0.1% Susp-Otic 4 drop(s), Otic, BID for 7 day(s), 7.5 mL, Refill(s) 0, [facility]/pharmacy #[id number], 168, cm, 10/23/23 16:55:00 EDT, Height/Length Dosing, 106.2, kg, 10/23/23 16:55:00 EDT, WeightDosing Start Date: 10/23/23 Stop Date: 10/30/23 Status: OrderedStart: 02-15-2023 End: 04-40-0731Uorlzcsl 0.3%-0.1% Susp-Otic 4 drop(s), Otic, BID for 7 day(s), 7.5 mL, Refill(s) 0, Only use if drainage or pain of ear shake well before using, [facility], 168, cm, 02/15/23 [...] (20 sources)Low Molecular Weight HeparinStart: 01-19-2025 End: 36-42-3435Vjdlrzvnvf Sodium (Lovenox) 40 MG/0.4ML solution prefilled syringe Indications: Anticoagulant long-term use , Antiphospholipid antibody positive , Antiphospholipid antibody syndrome ([facility]) Inject 40 mg as directed Daily for 30 doses 12 mL 3 01/19/2025 02/18/2025 ActiveStart: 01-09-2025 End: 72-23-3312nhwzdi 0.4 mL by subcutaneous injection onceenoxaparin (LOVENOX) 40 mg/0.4 mL syringe Indications: Antiphospholipid syndrome Inject 0.4 mL (40 mg total) under the skin Every 12 (twelve) hours. 24 mL 6 01/13/2025 ActiveStart: 05-03-2023 End: 39-20-4213uocgwwlodj (LOVENOX) 40 mg/0.4 mL Indications: Primary hypercoagulable state (HCC) , CVA, old, speech/language deficit , Cerebral hyponatremia INJECT 1 SYRINGE SUBCUTANEOUSLY EVERY 24 HOURS 90 mL 10/29/2024 ActiveStart: 04-06-2022 End: 97-53-4408tykdxjfjpz (LOVENOX) 40 mg/0.4 mL Indications: Primary hypercoagulable state (HCC) , CVA, old, speech/language deficit , Cerebral hyponatremia INJECT THE CONTENTS OF ONE SYRINGE (0.4 ML) SUBCUTANEOUSLY EVERY 24 HOURS 90 mL 2 09/28/2022 ActiveStart: 09-06-2021 End: 31-23-1990jraoux 0.8 mL by subcutaneous injection twice dailyenoxaparin (LOVENOX) 80 mg/0.8 mL Indications: Primary hypercoagulable state (HCC) Inject 0.8 mL subcutaneously twice daily. 48 mL 5 09/06/2021 10/06/2021 ActiveStart: 04-07-2020 End: 78-42-0414qfmipy 0.4 mL by subcutaneous injection every twenty-four hours enoxaparin (LOVENOX) 40 mg/0.4 mL Indications: Primary hypercoagulable state (HCC) , CVA, old, speech/language deficit , Cerebral hyponatremia Inject 0.4 mL subcutaneously every 24 hours. 36 mL 0 12/30/2021 03/30/2022 Active End: 56-28-8656jeahmm 40 mg by subcutaneous injection in the [...] enoxaparin (LOVENOX) 40 MG/0.4ML injection (1 source)Start: 08-05-2001nhlbemfisb (LOVENOX) 40 MG/0.4ML injection Inject 0.4 mLs into the skin daily 16 mL 1 02/20/2020 Activeenoxaparin (Lovenox) 40 MG/0.4ML injection (20 sources)enoxaparin (Lovenox) 40 MG/0.4ML injection 1 (one) time each day at the same time Activefamotidine 40 mg oral tablet (20 sources)Histamine-2 Receptor AntagonistStart: 05-42-2112kszu 1 tablet by mouth once daily at bedtimePepcid 40 mg Tab 40 mg = 1 tab(s), Oral, Once a day (at bedtime), # 90 tab(s), Refills(s) 4, Pharmacy: [facility], 168, cm, 06/30/24 8:36:00 EST, Height/Length Dosing, 97.2, kg, 06/30/24 8:36:00 EST, Weight Dosing Start Date: 06/30/24 Status: Ordered Quantity: 90.0 Unit: tab(s) Repeat number: 5Start: 11-29-2023 End: 52-49-1474kyql 1 tablet by mouth once dailyfamotidine (PEPCID) 20 mg tablet Take 1 tablet by mouth once daily. To take prior to infusion 1 tablet 11/29/2023 10/28/2024 Discontinued (Discontinued by Patient)Start: 11-29-2023 End: 08-01-4069vpwamcaoyf 20 mg injection (PEPCID)fluconazole 150 mg oral tablet (6 sources)Azole AntifungalStart: 86-09-4449Gniuytjp 150 mg Tab 150 mg = 1 tab(s), Oral, q7day, # 4 tab(s), Refills(s) 1, Pharmacy: [facility], 168, cm, 06/09/24 14:03:00 EST, Height/Length Dosing, 98.4, kg, 06/19/24 16:19:00 EST, Weight Dosing Start Date: 06/19/24 Status: Ordered Quantity: 4.0 Unit: tab(s) Repeat number: 2 Indication: Candidiasis, unspecifiedfluticasone propionate 0.05 mg/actuat metered dose nasal spray (20 sources)CorticosteroidStart: 11-20-2024 End: 10-82-9324xdlu 1 spray(s) nasal route once dailyfluticasone (Flonase) 50 MCG/ACT nasal spray Indications: Sinus headache Administer 1 spray into each nostril Daily Shake gently. Before first use, prime pump. After use, clean tip and replace cap. 16 g 3 11/20/2024 11/20/2025 ActiveStart: 76-08-7803Lfksefv 0.05 mg/inh [place] 2 spray(s), Nasal, Daily, 16 gram, Refill(s) 11, each nostril, [facility]/pharmacy #[id number], 168, cm, 06/09/24 14:03:00 EST, Height/Length Dosing, 99.1, kg, 06/09/24 14:03:00 EST, Weight Dosing Start Date: 06/09/24 Status: Ordered Quantity: 16.0 Unit: g Repeat number: 12Start: 03-58-4637Oxyavms 0.05 mg/inh [place] 2 spray(s), Nasal, Daily, 16 gram, Refill(s) 11, each nostril, [id number], 168, cm, 06/09/24 14:03:00 EST, Height/Length Dosing, 99.1, kg, 06/09/24 14:03:00 EST, Weight Dosing Start Date: 06/09/24 Status: OrderedStart: 87-72-3213Eqdwxak 0.05 mg/inh [place] 2 spray(s), Nasal, Daily, 16 gram, Refill(s) 0, each nostril Start Date: 08/03/23 Status: Orderedisopropyl alcohol 0.7 ml/ml medicated pad (20 sources)Start: 89-05-5836Hyczfuc Swabs (Alcohol Prep Pad) 70 % pads Indications: Second trimester ([facility]) , 13 weeks gestation of ([facility]) , Multigravida of advanced maternal age in second trimester ([facility]) , Gestational diabetes mellitus (GDM), antepartum, gestational diabetes method of control unspecified ([facility]) , Elevated glucose tolerance test Apply 1 Pad topically Daily Use four times daily to check FSBS. 150 each 3 10/30/2024 Activelevothyroxine sodium 0.025 mg oral tablet (20 sources)l-ThyroxineStart: 50-21-3626ptctffcucewwb 25 mcg (0.025 mg) Tab 25 mcg = 1 tab(s), Oral, Daily, Dr. Celaya, # 30 tab(s), Refills(s) 0 Start Date: 06/09/24 Status: Ordered Quantity: 30.0 Unit: tab(s) Repeat number: 1Start: 06-02-2024 End: 53-28-6652plcr 1 tablet by mouth before mealtimelevothyroxine (Synthroid) 50 MCG tablet Indications: History of thyroid disease Take 1 tablet (50 mcg) by mouth in the morning. Take before meals. 30 tablet 11 06/02/2024 06/23/2024 DiscontinuedStart: 02-25-2024 End: 61-86-0759hmbh 1 tablet by mouth before mealtimelevothyroxine (Synthroid) 25 MCG tablet Indications: Abnormal TSH Take 1 tablet (25 mcg) by mouth in the morning. Take before meals. 30 tablet 11 06/23/2024 06/23/2025 ActiveStart: 08-24-2021 End: 88-68-8642joyifbpczvpma (SYNTHROID) 25 mcg tablet Take 25 mcg by mouth. 0 08/24/2021 09/26/2023 Discontinued End: 94-30-6346iuqm 3 tablets by mouth once dailylevothyroxine (Synthroid) 25 MCG tablet Take 75 mcg by mouth 1 (one) time each day at the same time05/06/2024 DiscontinuedComment on above:Take 25 mcg by mouth.Lovenox 40 mg/0.4 mL Injection (20 sources)Start: 69-14-5779ipmoay 40 mg by subcutaneous injection every twenty-four hoursLovenox 40 mg/0.4 mL Injection 40 mg, SubCutaneous, q24hr, # 7 EA, Refills(s) 0, Blood Thinner Start Date: 04/07/20 Status: Ordered Quantity: 7.0 Unit: EA Repeat number: 1Start: 29-51-8579afmzor 40 mg by subcutaneous injection every twenty-four hoursLovenox 40 mg/0.4 mL Injection 40 mg, SubCutaneous, q24hr, # 7 EA, Refills(s) 0, Blood Thinner Start Date: 04/07/20 Status: Ihbyfvf30 hr metFORMIN hydrochloride 500 mg extended release oral tablet (20 sources)BiguanideStart: 63-41-5008ukdBMBSRB XR (GLUCOPHAGE XR) 500 mg 24 hr tablet Take 500 AM and 1000 mg at night. 90 tablet 4 03/11/2025 ActiveStart: 01-19-2025 End: 05-68-0337ifuz 3 tablets by mouth every twenty-four hours at mealtime metFORMIN XR (Glucophage-XR) 500 MG 24 hr tablet Indications: Gestational diabetes mellitus (GDM), antepartum, gestational diabetes method of control unspecified ([facility]) Take 3 tablets (1,500 mg) by mouth in the evening. Take with meals Do not crush, chew, or split. 90 tablet 3 01/19/2025 ActiveStart: 01-01-2025 End: 22-24-3837turEIFELK XR (GLUCOPHAGE XR) 500 mg 24 hr tablet Take 1500 mg at night. 90 tablet 4 01/01/2025 03/11/2025 DiscontinuedStart: 12-17-2024 End: 47-01-9916lezOMGCVB XR (GLUCOPHAGE XR) 500 mg 24 hr tablet Take 1000 mg at night. 90 tablet 4 12/17/2024 01/01/2025 DiscontinuedStart: 05-13-2024 End: 24-86-2351wzut 2 tablets by mouth every twenty-four hours at mealtime metFORMIN XR (Glucophage-XR) 500 MG 24 hr tablet Indications: Insulin resistance Take 2 tablets (1,000 mg) by mouth in the evening. Take with meals Do not crush, chew, or split. 60 tablet 11 05/13/2024 06/02/2024 DiscontinuedStart: 11-27-2023 End: 92-55-6586kaay 1 tablet by mouth once dailymetFORMIN XR (Glucophage-XR) 500 MG 24 hr tablet Indications: Insulin resistance Take 1 tablet (500mg) by mouth 1 (one) time each day at the same time 30 tablet 11 09/18/2024 01/19/2025 DiscontinuedStart: 37-13-9161NrqXUNOOE (Eqv-Glucophage XR) 500 mg oral tablet, extended release 1,000 mg = 2 tab(s), Oral, Daily, Refills(s) 0 Start Date: 10/20/22 Status: Ordered Repeat number: 1Start: 03-26-2022 End: 46-30-0183llhUCHFQI XR (GLUCOPHAGE XR) 500 mg 24 hr [...] tablet by mouth once daily.polyethylene glycol 3350 50656 mg powder for oral solution (20 sources)Osmotic Laxativepolyethylene glycol (GLYCOLAX) 17 gram packet Take 17 g by mouth in the morning. ActivePolyethylene Glycols (4 sources)polyethylene glycol 3350 (MIRALAX PO) Take by mouth. ActivePRENATAL 19 29 mg iron- 1 mg tablet,chewable (20 sources)Start: 73-58-6525VQQJHFIH 19 29 mg iron- 1 mg tablet,chewable Chew 1 tablet and swallow in the morning. 6 10/31/2018ActiveStart: 90-56-9433HHDBFGIA 19 29 mg iron- 1 mg tablet,chewable Chew 1 tablet and swallow daily. 6 10/31/2018 ActivePrenatal Vit-Fe Fumarate-FA ( PO) (1 source)Start: 54-54-4090Xuwfdddm Vit-Fe Fumarate-FA ( PO) Take 1 tablet by mouth 0 10/31/2018 Activeprogesterone 200 mg oral capsule (20 sources)Progesteronetake 1 capsule by mouth in the morningprogesterone (PROMETRIUM) 200 mg capsule Take 1 capsule (200 mg total) by mouth in the morning. ActiveProgesterone 200 MG suppository (6 sources)Start: 09-18-2024 End: 29-89-9752Mxyzecujiuyi 200 MG suppository Indications: History of miscarriage Insert 200 mg into the vagina at bedtime Insert suppository vaginally every night at bedtime until 12 weeks gestation 30 suppository 3 09/18/2024 10/30/2024 Discontinued (Therapy completed)Start: 09-18-2024 End: 03-20-9946Hqbtleggcrwt 200 MG suppository Indications: History of miscarriage Insert 200 mg into the vagina at bedtime Insert suppository vaginally every night at bedtime until 12 weeks gestation 30 suppository 3 09/18/2024 12/17/2024 ActiveStart: 09-01-2024 End: 80-54-0173Xxkauzbzkcnt 200 MG suppository Indications: History of miscarriage Insert 200 mg into the vagina at bedtime Insert suppository vaginally every night at bedtime until 12 weeks gestation 30 suppository 2 09/01/2024 11/30/2024 Activeprogesterone vaginal suppository 200 mg (CPD) (4 sources)progesterone vaginal suppository 200 mg (CPD) Use 200 mg vaginally. Unwrap and insert as directed. Activeterconazole 4 mg/ml vaginal cream (3 sources)Azole AntifungalStart: 06-23-2024 End: 40-90-6721sinehozdzjg (Terazol 7) 0.4 % vaginal cream Indications: Vaginal discharge Insert 1 applicator intothe vagina at bedtime for 7 days 45 g 06/23/2024 06/30/2024 ActiveVentolin HFA 90 mcg/inh Aerosol-Adpt (1 source)Start: 09-07-2024 End: 23-98-8051tohv 2 puff(s) by inhalation every six hours for wheezingVentolin HFA 90 mcg/inh Aerosol-Adpt 2 puff(s), Inhalation, q6hr for wheezing for 7 day(s), 8 gm, Refill(s) 0, [facility], 167, cm, 09/07/24 10:01:00 EDT, Height/Length Dosing, 96.4, kg, 09/07/24 10:01:00 EDT, Weight Dosing Start Date: 09/07/24 Stop Date: 09/14/24 Status: Ordered Quantity:8.0 Unit: g Repeat number: 1 Indication: Acute upper respiratory infection, unspecifiedVitamin D (20 sources)Start: 68-44-1225Txowowh D 2,000 International_Unit, Oral, qWeek, Refills(s) 0 Start Date: 08/03/23 Status: Ordered Repeat number: 1Start: 53-24-6381Dtkpoda D 2,000 International_Unit, Oral, qWeek, Refills(s) 0 Start Date: 08/03/23 Status: Ordered Completed/Discontinued Medications MedicationDrug Class(es)DatesSig (Normalized)Sig (Original)aspirin 81 mg chewable tablet (5 sources)Platelet Aggregation Inhibitor, Nonsteroidal Anti-inflammatory Drug End: 08-57-6862jnnhegy 81 MG chewable tablet Chew 81 mg in the morning. 05/06/2024 Discontinued1 ml dexamethasone phosphate 4 mg/ml injection (1 source)CorticosteroidStart: 11-29-2023 End: 29-08-2489dwwXDZYSqjedf sodium phosphate 8 mg injection (DECADRON)3 ml insulin glargine 100 unt/ml pen injector (6 sources)Insulin AnalogStart: 12-03-2024 End: 14-59-9452ndgdbpu glargine (LANTUS SOLOSTAR U-100 INSULIN) 100 unit/mL (3 mL) insulin pen Prime with 2 units then inject 4 units SQ into abd 15 mL 3 12/03/2024 12/17/2024 Discontinued (Allergic response)insulin isophane, human 100 unt/ml injectable suspension (10 sources)Start: 12-26-2024 End: 86-30-5132gijv 8 [IU] by mouth once dailyinsulin NPH (HumuLIN N,NovoLIN N) 100 unit/mL injection Indications: Gestational diabetes mellitus (GDM) in second trimester controlled on oral hypoglycemic drug Inj sbq in abd 8 units nightly 10 mL 6 12/26/2024 02/06/2025 Discontinued (Patient Never Started This Medication)iron sucrose 300 mg in NaCl 0.9% 250 mL (VENOFER) (3 sources)Start: 11-29-2023 End: 71-75-8762onkd sucrose 300 mg in NaCl 0.9% 250 mL (VENOFER)Start: 11-22-2023 End: 02-80-6772fkfg sucrose 300 mg in NaCl 0.9% 250 mL (VENOFER)Start: 11-15-2023 End: 24-30-4511amml sucrose 300 mg in NaCl 0.9% 250 mL (VENOFER)multivitamin (MULTIPLE VITAMINS) tablet (7 sources)take 1 tablet by mouth once dailymultivitamin (MULTIPLE VITAMINS) tablet Take 1 tablet by mouth once daily. 0 ActiveComment on above:Take 1 tablet by mouth once daily.ondansetron 4 mg disintegrating oral tablet (4 sources)Serotonin-3 Receptor AntagonistStart: 04-14-2024 End: 79-04-7824zrfn 1 tablet by mouth every six hours for nauseaondansetron ODT (Zofran-ODT) 4 MG disintegrating tablet Indications: Nausea and vomiting in Take 1 tablet (4 mg) by mouth every 6 (six) hours if needed for nausea or vomiting 30 tablet 2 04/14/2024 05/06/2024 DiscontinuedStart: 03-07-2024 End: 01-50-7464hdni 1 tablet by mouth every six hours as needed for nausea and vomiting and nausea and nauseaondansetron ODT (Zofran-ODT) 4 MG disintegrating tablet Indications: Nausea Take 1 tablet (4 mg) bymouth every 6 (six) hours if needed for nausea or vomiting 30 tablet 2 03/07/2024 04/06/2024 Active polysaccharide iron complex 391 mg oral capsule (20 sources)Start: 03-06-2022 End: 21-00-4597UDH FE 180 mg iron cap Problems Active Problems Problem ClassificationProblemDateDocumented DateEpisodic/ChronicAcute cerebrovascular disease (20 sources)Cerebral infarction; Translations: [Cerebral infarction, unspecified]Onset: 05-16-2019 Resolved: 205834-18-3979WpeqjoqNvxivou disorders (20 sources)Anxiety; Translations: [Anxiety disorder, unspecified]Onset: [id number] dysrhythmias (20 sources)Supraventricular tachycardia; Translations: [Supraventricular tachycardia]Onset: [id number]yv and hemorrhagic disorders (20 sources)Antiphospholipid syndrome; Translations: [Hypercoagulability state] Onset: 667460-20-8878TzaqiwyNgwfenzwkk and other anemia (20 sources)Iron 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; Translations: [Iron deficiency anemia secondary to blood loss (chronic)]Onset: 37-50-8622Nvfonzz Deficiency and other anemia (1 source)Iron deficiency anemia secondary to blood loss (chronic); Translations: [Iron deficiency anemia secondary to blood loss (chronic)]Onset: 39-32-6859PcpfqdzJdqelynv or abnormal glucose tolerance complicating ; childbirth; or the puerperium (20 sources)Gestational diabetes mellitus in , unspecified control; Translations: [Gestational diabetes mellitus in childbirth, unspecified control] Onset: 30-29-1667WxdnuvvdVnxyjlxhz of teeth and jaw (11 sources)Temporomandibular ynmjo-yxub-wfnzqwpbkrt syndrome; Translations: [Arthralgia of temporomandibular joint]Onset: 039251-59-3772Rclzacvj Esophageal disorders (20 sources)Laryngopharyngeal reflux; Translations: [Gastro-esophageal reflux disease without esophagitis]Onset: 957665-21-4446RaxtkugNkjcqfix; including migraine (2 sources)Sinus headache; Translations: [Sinus headache]85-05-7563HypcqgkzYdol effects of cerebrovascular disease (20 sources)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; Translations: [Other speechand language deficits following cerebral infarction]Onset: 57-98-7293UjnasylSowsrkrpcy disorders (1 source)Hormone replacement therapy; Translations: [HORMONE REPLACEMENT THERAPY]Onset: 59-35-6080GtlumsifQqyyvhnrr disorders (20 sources)Irregular menstruation, unspecified; Translations: [Missed period] Onset: 85-89-0814CbexcykCfrclnltbuqfu mental health disorders (20 sources)Psychogenic hyperventilation; Translations: [Other somatoform disorders]Onset: 101246-29-6201LxgcaqbMwnohwov sclerosis (1 source)Multiple sclerosis; Translations: [Multiple sclerosis]Onset: 87-66-1615QsngbjoUjtnqzdxnsw deficiencies (20 sources)Vitamin D deficiency; Translations: [Vitamin D deficiency, unspecified]Onset: 594380-03-0322IsijrulEljrw aftercare (1 source)Other senior care (current) drug therapy; Translations: [OTH RETIREMENT CURRENT DRUG THERAPY]Onset: 42-20-0281DtnzkgnuJjgjo aftercare (1 source)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 of oral hypoglycemic drugs; Translations: [CREDIT HISTORIAN USE ORAL HYPOGLYCEMIC DX]Onset: 54-95-5579NjsoqsjxNcozn aftercare (2 sources)H/O: miscarriage; Translations: [Encounter for other specified aftercare]47-37-0452XiyldnfeZamhi circulatory disease (4 sources)History of cerebrovascular disease; Translations: [Personal history of transient ischemic attack (TIA), and cerebral infarction without residual deficits]Onset: 874118-79-0913JusrtxjbDecgd circulatory disease (3 sources)Personal history of transient ischemic attack (TIA), and cerebral infarction without residual deficits; Translations: [PERS HX TIA AND CI NO RESID DEFICIT]Onset: 52-55-8431AsxlvxkjTmolz circulatory disease (1 source)History of transient ischemic attack; Translations: [Personal history of transient ischemic attack (TIA), and cerebral infarction without residual deficits]22-32-4225BsohzzywZjhxs complications of ; puerperium affecting management of mother (20 sources)Anemia in mother complicating childbirth; Translations: [Anemia complicating childbirth]Onset: 714459-09-6185JtowlvhDboyz complications of ; puerperium affecting management of mother (1 source)Other diseases of the blood and blood-forming organs and certain disorders involving the immune mechanism complicating childbirth; Translations: [OTH DZ BLD BFO IMMUN COMP CHILDBRTH]Onset: 16-85-6106BziryriwQbsuz complications of ; puerperium affecting management of mother (1 source)Endocrine, nutritional and metabolic diseases complicating childbirth; Translations: [ENDOCRN NUTR MET DZ COMP CHILDBIRTH]Onset: 00-80-6010Vhbmflfz Other complications of ; puerperium affecting management of mother (1 source)Streptococcus B carrier state complicating childbirth; Translations: [STREP B QUIROZ STATE COMP CHILDBIRTH]Onset: 55-08-7250BbzawzjpEgslo complications of (20 sources)Iron deficiency anemia of ; Translations: [Anemia complicating , unspecified trimester]Onset: 22-80-4387RfyxemaWcfiz complications of (1 source)Endocrine, nutritional and metabolic diseases complicating , third trimester; Translations: [ENDOCRN NUTR MET DZ COMP PG 3RD TRI]Onset: 10-32-9307KefubdxrFvgmf complications of (5 sources)Supervision of elderly multigravida, third trimester; Translations: [SUP ELDER MULTIGRAVIDA THIRD TRI]Onset: 85-55-3378LqwoceyhVbwfe complications of (1 source)Other diseases of the blood and blood-forming organs and certain disorders involving the immune mechanism complicating , third trimester; Translations: [OTH DZ BLD BFO IMMN COMP PG 3RD TRI]Onset: 05-04-2022 EpisodicOther complications of (1 source)Maternal care for excessive growth, third trimester, not applicable or unspecified; Translations: [MAT CARE EXCSS FTL GRTH 3RD TRI UNS] Onset: 61-32-5568GfqgtnijNgnjg complications of (20 sources)History of with abortive outcome; Translations: [Supervision of with other poorreproductive or obstetric history, second trimester]Onset: 034930-11-8555OppztshjOlcvf complications of (3 sources)Hypothyroidism in ; Translations: [Endocrine, nutritional and metabolic diseases complicating , second trimester]01-02-2025 EpisodicOther ear and sense organ disorders (20 sources)Otitis externa of right ear; Translations: [Unspecified otitis externa, right ear]Onset: 42-86-2715YwadikiInjza ear and sense organ disorders (7 sources)Otitis pdcfihj74-31-1846JytpbzeRegng endocrine disorders (20 sources)Hypoglycemia; Translations: [Hypoglycemia, unspecified]Onset: 368112-75-7763XqtochtGczcn female genital disorders (2 sources)Vaginal bleeding; Translations: [Abnormal uterine and vaginal bleeding, unspecified]28-52-3044LdivzviDgnds female genital disorders (4 sources)Vaginal discharge; Translations: [Other specified noninflammatory disorders of vagina]74-17-0698MozyhyucTdvdi hematologic conditions (1 source)H/O: blood disorder; Translations: [Personal history of diseases of the blood and blood-forming organs and certain disorders involving the immune mechanism]Onset: 66-64-2390EselybatCimce lower respiratory disease (9 sources)Fkezj33-22-9972VmrtulcmHtfyo nervous system disorders (1 source)Idiopathic progressive neuropathy; Translations: [Idiopathic progressive neuropathy]Onset: 00-80-9860VjercuiPsunl nervous system disorders (20 sources)Neuropathy; Translations: [Idiopathic progressive neuropathy]Onset: 626835-68-0583WxftwpsIcpxo nervous system disorders (3 sources)Paresthesia; Translations: [Paresthesia of skin]Onset: 05-16-2019 EpisodicOther nervous system disorders (9 sources)Muscle pouesr22-21-1982GsmrycczFtklj nervous system disorders (6 sources)Facial jffhlhjpnnu83-25-7826WmqvzqerCbpfs nutritional; endocrine; and metabolic disorders (10 sources)Obese class II; Translations: [Body mass index (BMI) 36.0-36.9, adult]Onset: 94-53-0199EtanhuvJmlur nutritional; endocrine; and metabolic disorders (20 sources)Obesity; Translations: [Other obesity]Onset: 969826-26-9108 ChronicOther nutritional; endocrine; and metabolic disorders (20 sources)Morbid obesity; Translations: [Morbid (severe) obesity due to excess calories]Onset: 34-21-4067CwwsfodVzddm nutritional; endocrine; and metabolic disorders (3 sources)Hypercalcemia; Translations: [Hypercalcemia]26-70-1785IuppptkLlhxd nutritional; endocrine; and metabolic disorders (20 sources)Body mass index 30+ - obesity; Translations: [Body mass index (BMI) 37.0-37.9, adult]Onset: 580703-34-7620KwwbbjaYxtps nutritional; endocrine; and metabolic disorders (1 source)Obese class I; Translations: [Body mass index (BMI) 34.0-34.9, adult] Onset: 20-10-4242BylasopPdihd nutritional; endocrine; and metabolic disorders (1 source)H/O: Disorder; Translations: [Personal history of other endocrine, nutritional and metabolic disease]Onset: 16-56-3049ZibglfxePmhpm nutritional; endocrine; and metabolic disorders (2 sources)H/O: thyroid disorder; Translations: [Personal history of other endocrine, nutritional and metabolic disease]92-42-6533GcilzdtqWrkbf screening for suspected conditions (not mental disorders or infectious disease) (12 sources)Encounter for screening for malignant neoplasm of cervix; Translations: [Encounter for screening for diabetes mellitus]Onset: 10-28-2021 EpisodicOther skin disorders (1 source)Podopompholyx; Translations: [Dyshidrosis [pompholyx]]Onset: 65-70-0093NshoalyoRxtce upper respiratory disease (20 sources)Allergy to -12-9653VrbmgohGljcg upper respiratory disease (1 source)Polyp of nasal sinus; Translations: [Nasal polyp, unspecified]Onset: 29-73-9786FfsafhhxVdihn upper respiratory infections (8 sources)Chronic sinusitis; Translations: [Chronic sinusitis, unspecified] Onset: 97-22-5864MggmkwoRfbroefh codes; unclassified (1 source)Sleep disorder; Translations: [Other sleep disorders]Onset: 10-20-2022 ChronicResidual codes; unclassified (20 sources)Obstructive sleep apnea syndrome; Translations: [Obstructive sleep apnea (adult) (pediatric)]Onset: 536316-96-9472LtcigixIxngwycl codes; unclassified (8 sources)Patient encounter status; Translations: [Other specified health status]Onset: 95-31-1747NyasuodtPicvoyxb codes; unclassified (1 source)39 weeks gestation of ; Translations: [39 WEEKS GESTATION OF ]Onset: 46-52-8477AdpskditRdychmqt codes; unclassified (1 source)Family history of diabetes mellitus; Translations: [FAMILY HISTORY OF DIABETES MELLITUS]Onset: 98-95-9090VxstiyrmTgufxotk codes; unclassified (1 source)Family history of stroke; Translations: [FAMILY HISTORY OF STROKE] Onset: 43-45-0736IqlfohkjPbrdzzak codes; unclassified (1 source)38 weeks gestation of ; Translations: [38 WEEKS GESTATION OF ]Onset: 19-30-6773HnitazuaOpxpxseo codes; unclassified (1 source)37 weeks gestation of ; Translations: [37 WEEKS GESTATION OF ]Onset: 15-05-5715JvnmadxlPctsrbes codes; unclassified (1 source)35 weeks gestation of ; Translations: [35 WEEKS GESTATION OF ]Onset: 75-94-6097QtlntxgaEopiecon codes; unclassified (1 source)34 weeks gestation of ; Translations: [34 WEEKS GESTATION OF ]Onset: 93-97-4423PuhmsebhGahbhrot codes; unclassified (1 source)33 weeks gestation of ; Translations: [33 WEEKS GESTATION OF ]Onset: 35-12-3080XqutfuecGmpsjzma codes; unclassified (1 source)32 weeks gestation of ; Translations: [32 WEEKS GESTATION OF ]Onset: 54-50-9836XpbpjviyMmqzlsos codes; unclassified (1 source)31 weeks gestation of ; Translations: [31 WEEKS GESTATION OF ]Onset: 60-47-6566GqjegrlpNpdvxotx codes; unclassified (20 sources)Sleep -15-0424HzktenahKrvihnly codes; unclassified (1 source)Localized edema; Translations: [Localized edema]Onset: 11-09-2023 EpisodicResidual codes; unclassified (2 sources)Gestation period, 14 weeks; Translations: [14 weeks gestation of ]80-41-9913SvypinkeMbrvlygj codes; unclassified (2 sources)Gestation period, 13 weeks; Translations: [13 weeks gestation of ]15-52-2320LqmtiptuXetxbbmm codes; unclassified (2 sources)Gestation period, 16 weeks; Translations: [16 weeks gestation of ]01-62-1275AbcluxwyIxehpquq codes; unclassified (2 sources)Gestation period, 19 weeks; Translations: [19 weeks gestation of ]17-63-9854FsbswfmaXptittsf codes; unclassified (3 sources)Gestation period, 22 weeks; Translations: [22 weeks gestation of ]69-37-5706LrinunufOgcfqctm codes; unclassified (3 sources)Family history of autism; Translations: [Family history of other mental and behavioral disorders]31-55-2309CtgcbjjjQfsgocdt codes; unclassified (2 sources)Gestation period, 23 weeks; Translations: [23 weeks gestation of ]29-44-8318XzgnrethLrtufyon codes; unclassified (2 sources)Gestation period, 25 weeks; Translations: [25 weeks gestation of ]81-38-8273TwrpwxphNyqqnyzr codes; unclassified (1 source)Gestation period, 27 weeks; Translations: [27 weeks gestation of ]01-88-1396TaxlykyvHdwwfgco codes; unclassified (1 source)22 weeks gestation of ; Translations: [22 weeks gestation of ]Onset: 79-30-5916NrkvephbEtjgqorq codes; unclassified (2 sources)Gestation period, 28 weeks; Translations: [28 weeks gestation of ]36-38-9026TkypxgghZymeuago codes; unclassified (1 source)Gestation period, 29 weeks; Translations: [29 weeks gestation of ]77-40-4361PjjckqstYrqbxscx codes; unclassified (2 sources)Gestation period, 30 weeks; Translations: [30 weeks gestation of ]22-65-5673XxhxyivnRwiinch disorders (20 sources)Hypothyroidism; Translations: [Hypothyroidism, unspecified]Onset: 065898-43-2790ZerlksiGmozdkx disorders (20 sources)Disorder of thyroid, unspecified; Translations: [Disorder of thyroid gland]Onset: 357249-59-1077XdrukfveEzebzzbqj cerebral ischemia (1 source)Transient cerebral ischemia; Translations: [Transient cerebral ischemic attack, unspecified]Onset: 944776-98-9680LxfryccMgnpqesnhyyy (20 sources)History of LUNW-BrX-973-11-2022Unclassified (20 sources)Inhalation nqentt17-89-4853Fyckhwoepktz (20 sources)Foy-xaerpn39-25gmblys44-36-2323Ggxcecadhvik (1 source)CONTACT W/AND (SUSP) EXPOS COVID-19; Translations: [CONTACT W/AND (SUSP) EXPOS COVID-19]Onset: 13-23-8362Kgtvezatjxbs (15 sources)Patient encounter etjlna50-64-0818Ovwslxbakdhi (1 source)MFM consultOnset: 23-58-2278Btlcnzbonxzx (1 source)Gestational DiabetesOnset: 79-90-9255Kqdtx infection (20 sources)Viral haqclog85-15-6387Gnydpvvp Past or Other Problems Problem ClassificationProblemDateDocumented DateEpisodic/ChronicAbdominal pain (20 sources)Abdominal pain; Translations: [Pain in pelvis]Onset: 02-01-2019 36-71-0350KeyxdwboGhoyf bronchitis (20 sources)Acute infective bronchitis; Translations: [Acute bronchitis due to other specified organisms]Onset: 266643-12-8160QyodnijlOvais posthemorrhagic anemia (20 sources)Acute posthemorrhagic anemia; Translations: [Acute posthemorrhagic anemia]Onset: 569017-06-0556WcpwrcpwMgxmddhk reactions (20 sources)Other allergy status, other than to drugs and biological substances; Translations: [Qsgoo-vg-lxlthsf vesicular eczema of hands and feet]Onset: 10-89-8231BgdssxldCdqgwtebu infection; unspecified site (20 sources)Bacterial infectious disease; Translations: [Other bacterial infections of unspecified site]Onset: 645768-72-8917FwredfigMqwbovnd of urinary tract (20 sources)History of calculus of kidney; Translations: [Personal history of urinary calculi]Onset: 740873-17-2822QqbyapbgTbrpfgt dysrhythmias (20 sources)Palpitations; Translations: [Palpitations]Onset: 08-26-2019 82-41-1933VmzwsofpCdbrdfnenh associated with dizziness or vertigo (20 sources)Dizziness; Translations: [Dizziness and giddiness]Onset: 02-05-2019 27-78-1922XrmygxnrWpeqsipeyc and other anemia (20 sources)Anemia; Translations: [Anemia, unspecified]Onset: 76-22-6207Mmquftlw Diabetes mellitus without complication (20 sources)Prediabetes; Translations: [Prediabetes]Onset: 28-23-2118Rlqhcpxn Diseases of mouth; excluding dental (20 sources)Xerostomia; Translations: [Dry mouth, unspecified]Onset: 12-22-2022 EpisodicFluid and electrolyte disorders (20 sources)Cerebral hyponatremia; Translations: [Hypo-osmolality and hyponatremia]Onset: 19-04-0927WfzjccpzTsbpubcaawoyvqry hemorrhage (20 sources)Hematochezia; Translations: [Blood-tinged feces]Onset: 06-12-2023 29-75-7175CtrrseelDyhhkezbqetvg symptoms and ill-defined conditions (20 sources)Genitourinary symptoms; Translations: [Unspecified symptoms and signs involving the genitourinary system]Onset: 70-77-4188DxcpxsomGdjcelwu; including migraine (20 sources)Migraine without aura, not refractory ; Translations: [Migraine without aura, not intractable, without status migrainosus]Onset: 09-12-2017 Resolved: 864852-05-0178LgkrnruQcwvsgyodrrux and screening for infectious disease (20 sources)Antibody studies abnormal; Translations: [Raised antibody titer] Onset: 151552-54-1628WwdvkcicEywegws and fatigue (20 sources)Fatigue; Translations: [Other fatigue]Onset: EpisodicMycoses (20 sources)Candidiasis of vagina Resolved: 261099-47-9703NnicczweKavgmlzayjm deficiencies (20 sources)Vitamin B deficiency; Translations: [Deficiency of other specified B group vitamins]Onset: 583812-04-8528VbxnbhuvYU-gfbazym trauma to perineum and vulva (20 sources)First degree perineal tear during delivery - delivered; Translations: [First degree perineal laceration during delivery]Onset: 771129-11-8327MhorrgqoAauli aftercare (20 sources)Long-term current use of anticoagulant; Translations: [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 of anticoagulants]Onset: 479597-35-9054ZmdcrtrwMcfdd aftercare (20 sources)Long-term current use of drug therapy; Translations: [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 of 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/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]Onset: EpisodicOther circulatory disease (20 sources)History of cerebrovascular accident; Translations: [Personal history of transient ischemic attack (TIA), and cerebral infarction without residual deficits]Onset: 116100-59-4122LpsblzgrQaemfvf on above:reported by pt - related to antiphospholipid syndromeOther circulatory disease (20 sources)Elevated blood-pressure reading without diagnosis of hypertension; Translations: [Elevated blood-pressure reading, without diagnosis of hypertension]Onset: 488025-17-5454CgxzekioIoeop circulatory disease (20 sources)Elevated blood pressure; Translations: [Elevated blood-pressure reading, without diagnosis of hypertension]Onset: 787575-27-5789Vkbnwvsy Other complications of ; puerperium affecting management of mother (20 sources) problem; Translations: [Unspecified disorders of ]Onset: 281178-51-9156MqixgoseBzxbu complications of ; puerperium affecting management of mother (1 source)Endocrine, nutritional and metabolic disease complicating , childbirth and puerperium; Translations: [Endocrine, nutritional and metabolic diseases complicating childbirth]Onset: 035386-81-1064BidyertsVdotj complications of ; puerperium affecting management of mother (1 source)Complication of , childbirth and/or the puerperium; Translations: [Other diseases of the blood and blood-forming organs and certain disorders involving the immune mechanism complicating childbirth]Onset: 150973-55-7778HhmywmszBhfgv complications of ; puerperium affecting management of mother (20 sources) hemorrhage; Translations: [Other immediate hemorrhage]Onset: 350723-21-0522ZdthjtdzEmqoq complications of (1 source)Vomiting of ; Translations: [Vomiting of , unspecified]Onset: 347952-71-8011OevkwomsRywda complications of (20 sources)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; Translations: [Maternal care for (suspected) chromosomal abnormality in fetus, not applicable or unspecified]Onset: 277762-64-8349OwfkpposJtcyg complications of (4 sources)Other specified related conditions, third trimester; Translations: [OTH SPEC PREG RELATEDCOND 3RD TRI]Onset: 88-63-3092UvsxkotaMvvay complications of (20 sources)Antiphospholipid syndrome; Translations: [Other diseases of the blood and blood-forming organs and certain disorders involving the immune mechanism complicating , unspecified trimester]Onset: 07-07-2019 05-94-2501MrdundlgXdgfc complications of (20 sources)Multigravida of advanced maternal age; Translations: [Supervision of elderly multigravida, second trimester]Onset: 891746-04-9151NeeyioplUlsab complications of (2 sources)Other diseases of the blood and blood-forming organs and certain disorders involving the immune mechanism complicating , unspecified trimester; Translations: [Other diseases of the blood andblood-forming organs and certain disorders involving the immune mechanism complicating , un specified trimester]Onset: 15-91-9309TwedstkeIahls complications of (1 source)Supervision of elderly multigravida, second trimester; Translations: [Supervision of elderly multigravida, second trimester]Onset: 76-19-3142Bpskllhj Other ear and sense organ disorders (20 sources)Referred otalgia of right ear; Translations: [Otalgia, right ear] Onset: 495925-77-0831KlitdtgaQocka female genital disorders (20 sources)Noninflammatory disorder of the vagina; Translations: [Other specified noninflammatory disorders ofvagina]Onset: 955499-55-0148Bfbfojtq Other female genital disorders (20 sources)Disorder of female reproductive system; Translations: [Unspecified condition associated with femalegenital organs and menstrual cycle]Onset: 974920-70-8352DanzrthzBucjq female genital disorders (1 source)Other specified noninflammatory disorders of vagina; Translations: [OTH SPEC NONINFLAMMATORY D/O VAGINA]Onset: 01-16-8894LrrwdkdgLvwuo female genital disorders (14 sources)Pelvic and perineal pain; Translations: [Pelvic and perineal pain] Onset: 298820-99-8246DcgbwcyaUyppl hematologic conditions (20 sources)H/O: anemia - iron deficient; Translations: [Personal history of diseases of the blood and blood-forming organs and certain disorders involving the immune mechanism]Onset: 534001-51-2062FccrbanbDqxyl infections; including parasitic (20 sources)Personal history of other infectious and parasitic diseases; Translations: [History of COVID-19]Onset: 977874-02-1675SnxvgbhtPwmrq inflammatory condition of skin (1 source)Itching of skin; Translations: [Pruritus, unspecified]Onset: 718964-71-4980WjzomcdbGngpe inflammatory condition of skin (20 sources)Pruritus, unspecified; Translations: [Unspecified pruritic disorder] Onset: 845434-73-9255BsvzujlnPxxqe injuries and conditions due to external causes (20 sources)Inhalation injury; Translations: [Injury, unspecified, initial encounter]Onset: 256552-03-3824TcqtozcqKqsfq lower respiratory disease (20 sources)Dyspnea; Translations: [Dyspnea, unspecified]Onset: 06-12-2023 03-32-2637ErepxiyjWapmf lower respiratory disease (20 sources)H/O: asthma; Translations: [Personal history of other diseases of the respiratory system]Onset: 615808-06-9932ThgifkvgZljxd lower respiratory disease (20 sources)Snoring; Translations: [Snoring]Onset: 22-18-9067SpdoukozFzwxu nervous system disorders (20 sources)Muscle fasciculation; Translations: [Fasciculation]Onset: 08-19-2021 EpisodicOther nervous system disorders (20 sources)Paresthesia of lower extremity; Translations: [Paresthesia of skin] Onset: 133735-88-2371FlcnntnbTovqw nervous system disorders (20 sources)Acute postoperative pain; Translations: [Other acute postprocedural pain]Onset: 465556-58-2234NhpfezvkZrlkl non-traumatic joint disorders (20 sources)Joint pain; Translations: [Pain in unspecified joint]Onset: 937556-06-3291TahhonkxUyxhq nutritional; endocrine; and metabolic disorders (20 sources)H/O: hypothyroidism; Translations: [Personal history of other endocrine, nutritional and metabolic disease]Onset: 746863-34-1931Zsbzxced Other and delivery including normal (20 sources)Normal ; Translations: [Encounter for supervision of normal , unspecified, first trimester]Onset: 641622-53-3506Zwwwnmxc Other skin disorders (20 sources)Rhozw-yi-cnravda vesicular eczema of hands and feet; Translations: [Dyshidrosis [pompholyx]]Onset: 832829-24-2940TkmwscwfOxgxz upper respiratory disease (20 sources)Deviated nasal septum; Translations: [Deviated nasal septum]Onset: 28-57-1302BhorqqaeAobso upper respiratory disease (20 sources)Polyp of nasal cavity and/or nasal sinus; Translations: [Nasal polyp, unspecified]Onset: 053377-75-5620FrvzjofnDtkao upper respiratory infections (20 sources)Acute upper respiratory infection Resolved: 965062-59-4171QmtcwzdnCwmglz media and related conditions (20 sources)Dysfunction of eustachian tube; Translations: [Disorder of right Eustachian tube]Onset: 668249-52-9351EkkpqvqkPxoqfeg cyst (20 sources)Cyst of ovary; Translations: [Cyst of right ovary]Onset: 02-06-2019 15-54-1973XgxzwvieLpgtsneo codes; unclassified (20 sources)Family history of female genital tract disorder Resolved: 459256-57-7688KfszgiukJnkycqaz codes; unclassified (20 sources)FH: Anemia Resolved: 877158-80-9299YvhesvkhCaysocdv codes; unclassified (20 sources)First trimester ; Translations: [Less than 8 weeks gestation of ]Onset: 699270-72-4894ZtdforhyObfktthu codes; unclassified (20 sources)Gestation period, 32 weeks; Translations: [32 weeks gestation of ]Onset: 261580-16-7412TmqyjzhoFkrajlgj codes; unclassified (1 source)Gestation period, 33 weeks; Translations: [33 weeks gestation of ]Onset: 776907-80-0311DlvhnrydNsxfmtrm codes; unclassified (1 source)Gestation period, 34 weeks; Translations: [34 weeks gestation of ]Onset: 388269-91-3259CjmrevqmEumgrbpl codes; unclassified (1 source)Gestation period, 35 weeks; Translations: [35 weeks gestation of ]Onset: 008937-13-1918HxxcrsxhQdvmdbck codes; unclassified (1 source)Gestation period, 36 weeks; Translations: [36 weeks gestation of ]Onset: 261490-47-4976RlmkvuikVikwyadc codes; unclassified (1 source)Gestation period, 37 weeks; Translations: [37 weeks gestation of ]Onset: 917894-18-8581QhwemtedBkmrwjvw codes; unclassified (1 source)Gestation period, 38 weeks; Translations: [38 weeks gestation of ]Onset: 487250-53-4978DmgdstsiLajklrdf codes; unclassified (1 source)Gestation period, 39 weeks; Translations: [39 weeks gestation of ]Onset: 235761-70-5640EsvvgactPjfnioxa codes; unclassified (20 sources)Other general symptoms and signs; Translations: [Other general symptoms]Onset: 081223-65-0258DxomtlbvKlorjcsj codes; unclassified (1 source)Unspecified blood type, Rh negative; Translations: [UNSPECIFIED BLOOD TYPE RH NEGATIVE]Onset: 43-91-9602IgtvhlemZpwdtctw codes; unclassified (1 source)28 weeks gestation of ; Translations: [28 WEEKS GESTATION OF ]Onset: 94-42-8478QvbbrmvoRccnebfj codes; unclassified (20 sources)Intolerant of cold; Translations: [Other general symptoms and signs] Onset: 113628-63-5222ZyakakriXvwqqymc codes; unclassified (20 sources)Non-smoker; Translations: [Other specified health status]Onset: 958363-32-6882CpsvglgnOollgojm codes; unclassified (20 sources)Swelling of salivary gland; Translations: [Localized edema]Onset: 610033-40-9429PxakujxfVezmywrvlpd; intervertebral disc disorders; other back problems (20 sources)Neck pain; Translations: [Cervicalgia]Onset: EpisodicSpontaneous (20 sources)Miscarriage Resolved: 777942-05-3426FevuowjbGztzgli (20 sources)Syncope and collapse; Translations: [Syncope and collapse]Onset: 660864-73-6022QjcqsckqVpnusnnzoeoc (20 sources)PregnancyOnset: 02-20-2007 Resolved: 889624-37-4610Rbyzyzfttlku (20 sources)Suspected disease caused by 2458-oLvO98-03qBxY48-63-0253Iukmtsikzpgq (1 source)Exposure to 2019 novel coronavirus; Translations: [Contact with and (suspected) exposure to COVID19]Urinary tract infections (20 sources)Infective urethritis; Translations: [Other urethritis]Onset: 04-18-1222Hjpvokai Results Test NameValueInterpretationReference RangeFacilityUS OB BPP W NON-STRESS on 89-22[place]20[place], [place] [address] Ultrasound Report Signed Patient: SANNA RENDON MR#: [id number] : 1985 Acct:[id number] Age/Sex: 39 / F ADM Date: 03/05/25 Loc: US Attending Dr: Wilton Herrmann D.O. Ordering Physician: Wilton Herrmann D.O. Date of Service: 03/05/25 Procedure(s): US OB BPP w non-stress Accession Number(s): [id number] cc: Wilton Herrmann D.O.; Physician,Non-Staff M.DLazara The [place] [id number] Patient Name: SANNA RENDON MRN: [facility]:[id number] date: 1985 Sex: F [facility] Current Patient Location: Accession/Order Number: [id number] Exam Date: 03/05/2025 19:15 Report Date: 03/06/2025 [...] Pisano M.D. 03/06/2025 8:10 AM Dictation Location: [place] [address] Electronically authenticated by: [id number] Y Date: 03/06/2025 08:10 Dictated By: Pamela Pisano M.D. Signed By: 03/06/2513 DD/ 9 TD/TT: Clinical Informatics Director:ELVERadiology, Radiologist, - 03/06/2025 [place] [address] Ultrasound Report Signed Patient: SANNA RENDON MR#: [id number] : 1985 Acct:[id number] Age/Sex: 39 / F ADM Date: 03/05/25 Loc: US Attending Dr: Wilton Herrmann D.O. Ordering Physician: Wilton Herrmann D.O. Date of Service: 03/05/25 Procedure(s): US OB BPP w non-stress Accession Number(s): [id number] cc: Wilton Herrmann D.O.; Physician,Non-Staff Tamia [place] [address] Patient Name: SANNA RENDON MRN: [facility]:[id number] date: 1985 Sex: F [facility] Current Patient Location: Accession/Order Number: [id number] Exam Date: 03/05/2025 19:15 Report Date: 03/06/2025 [...] Pisano M.D. 03/06/2025 8:10 AM Dictation Location: [place] [address] Electronically authenticated by: [id number] Y Date: 03/06/2025 08:10 Dictated By: Pamela Pisano M.D. Signed By: 03/06/25812 DD/ 9 TD/TT: Clinical Informatics Director: SHILOH HealthcareRadiology Study observation (narrative)[facility] HealthcareUS OB BPP W NON-STRESSOrdered By: Radiologist Radiology on 81-69-3537RYONShriners Hospitals for Children Work Phone: [phone]([place])D3 [facility] 467119-kpbsdovhjuvmuo D3 [Mass/Vol]54.6 ng/aDTkqimz78.0-80.0[facility] on above: Order Comment: Specimen Type: BLOOD SPECIMENOrdering Facility: [facility] Address:[address] [place], [place] [address]Performed By: #### 1989-3 ####[facility] LABCLIA [id number] [address] Auto Differential panel (Bld)on 03-02-2025 Basophils (Bld) [#/Vol]0.03 10*3/uLNormal<0.11CPremier Health Miami Valley HospitalComment on above:Order Comment: Specimen Type: BLOOD SPECIMENOrdering Facility: [facility] Address:[address] [place] [address] Performed By: #### 96642-3 ####[facility] LABCLIA [id number] [place], [place] [address]Rrxxvheam/100 WBC (Bld)0.3 % NormalTriHealth Good Samaritan Hospital on above:Order Comment: Specimen Type: BLOOD SPECIMENOrdering Facility: [facility] Address:[address] [place], [place] [address]Performed By: #### 73443-2 ####[facility] LABCLIA [id number] [place] [address] Differential cell count method Nom (Bld)AutoNormalCPremier Health Miami Valley Hospital Comment on above:Order Comment: Specimen Type: BLOOD SPECIMENOrdering Facility: [facility] Address:[address] [place] [address] Performed By: #### 06732-8 ####[facility] LABCLIA [id number] [place], [place] [address]Niinrrhouip (Bld) [#/Vol]0.06 10*3/uLNormal<0.46[facility] on above:Order Comment: Specimen Type: BLOOD SPECIMENOrdering Facility: [facility] Address:[address] [place], [place] [address]Performed By: #### 17575-4 ####[facility] LABCLIA [id number] [place], [place] [address]Flgikzrjwlj/100 WBC (Bld)0.7 %NormalTriHealth Good Samaritan Hospital on above:Order Comment: Specimen Type: BLOOD SPECIMENOrdering Facility: [facility] Address:[address] [place], [place] [address]Performed By: #### 46485-6 ####[facility] LABCLIA [id number] [place], [place] [address]Nmggsietafg distribution width (RBC) [Ratio]13.3 %Tytexc26.5-15.0[facility] on above: Order Comment: Specimen Type: BLOOD SPECIMENOrdering Facility: [facility] Address:[address] [place], [place] [address]Performed By: #### 52726- 8 ####[facility] LABIA [id number] [place], [place] [address]Qmemprpyyb (Bld) [Volume fraction]33.0 %Low36.0-46.0 [facility] on above:Order Comment: Specimen Type: BLOOD SPECIMENOrdering Facility: [facility] Address:[address] [place], [place] [address]Performed By: #### 51025-5 ####[facility] LABIA [id number] [place], [place] [address]Mpctaafcbg (Bld) [Mass/Vol]11.6 g/yKSdjoai20.5-15.5CProvidence Hospital on above: Order Comment: Specimen Type: BLOOD SPECIMENOrdering Facility: [facility] Address:[address] [place], [place] [address]Performed By: #### 75286- 8 ####[facility] LABCLIA [id number] [place], [place] [address]Zyipwtgk granulocytes (Bld) [#/Vol]0.04 10*3/uLNormal <0.10[facility] on above:Order Comment: Specimen Type: BLOOD SPECIMENOrdering Facility: [facility] Address:[address] [place], [place] [address]Performed By: #### 54667-1 ####[facility] LABCLIA [id number] [place], [place] [address]Wrulwzth granulocytes/100 WBC (Bld)0.5 %NormalTriHealth Good Samaritan Hospital on above: Order Comment: Specimen Type: BLOOD SPECIMENOrdering Facility: [facility] Address:[address] [place], [place] [address]Performed By: #### 75645- 8 ####[facility] LABCLIA [id number] [place], [place] [address]Wrffrenlmst (Bld) [#/Vol]2.31 10*3/uLNormal1.00-4.00 [facility] on above:Order Comment: Specimen Type: BLOOD SPECIMENOrdering Facility: [facility] Address:[address] [place], [place] [address]Performed By: #### 79332-5 ####[facility] LABCLIA [id number] [place], [place] [address]Jgockqtkzip/100 WBC (Bld)26.7 %NormalTriHealth Good Samaritan Hospital on above:Order Comment: Specimen Type: BLOOD SPECIMENOrdering Facility: [facility] Address:[address] [place], [place] [address]Performed By: #### 31351-7 ####[facility] LABCLIA [id number] [place], [place] [address]AOX (RBC) [Entitic mass]31.3 pvQxnjkw92.0-34.0[facility] on above:Order Comment: Specimen Type: BLOOD SPECIMENOrdering Facility: [facility] Address:[address] [place], [place] [address]Performed By: #### 86035-4 ####[facility] LABCLIA [id number] [place], [place] [address]XHON (RBC) [Mass/Vol]35.2 g/pFZsfmjv94.5-36.0[facility] on above: Order Comment: Specimen Type: BLOOD SPECIMENOrdering Facility: [facility] Address:[address] [place], [place] [address]Performed By: #### 89811- 8 ####[facility] LABCLIA [id number] [place], [place] [address]EYH (RBC) [Entitic vol]88.9 tBPhxqyz46.0-100.0[facility] on above:Order Comment: Specimen Type: BLOOD SPECIMENOrdering Facility: [facility] Address:[address] [place], [place] [address]Performed By: #### 18593-0 ####[facility] LABIA [id number] [place], [place] [address]Woamivndu (Bld) [#/Vol]0.63 10*3/uLNormal<0.87[facility] on above:Order Comment: Specimen Type: BLOOD SPECIMENOrdering Facility: [facility] Address:[address] [place], [place] [address]Performed By: #### 39165- 8 ####[facility] LABCLIA [id number] [place], [place] [address]Fnkngynuu/100 WBC (Bld)7.3 %NormalTriHealth Good Samaritan Hospital on above:Order Comment: Specimen Type: BLOOD SPECIMENOrdering Facility: [facility] Address:[address] [place], [place] [address]Performed By: #### 87926-2 ####[facility] LABCLIA [id number] [place], [place] [address]Itekefgwvxj (Bld) [#/Vol]5.57 10*3/uLNormal1.45-7.50[facility] on above:Order Comment: Specimen Type: BLOOD SPECIMENOrdering Facility: [facility] Address:[address] [place], [place] [address]Performed By: #### 80943-7 ####[facility] LABCLIA [id number] [place], [place] [address]Zkzpkltojok/100 WBC (Bld)64.5 %NormalTriHealth Good Samaritan Hospital on above:Order Comment: Specimen Type: BLOOD SPECIMENOrdering Facility: [facility] Address:[address] [place], [place] [address]Performed By: #### 36382-6 ####[facility] LABCLIA [id number] [place], [place] [address]Ghhyisody RBC (Bld) [#/Vol] 10*3/uLNormal<0.01[facility] on above:Order Comment: Specimen Type: BLOOD SPECIMENOrdering Facility: [facility] Address:[address] [place], [place] [address]Performed By: #### 73309-7 ####[facility] LABCLIA [id number] [place], [place] [address]Lebqbqypd RBC/100 WBC (Bld) [Ratio]0.0 /100 WBCNormal [facility] on above:Order Comment: Specimen Type: BLOOD SPECIMENOrdering Facility: [facility] Address:[address] [place], [place] [address]Performed By: #### 35673-1 ####[facility] LABIA [id number] [place], [place] [address]Ojypxyud mean volume (Bld) [Entitic vol]9.4 fLNormal9.0-12.7CProvidence Hospital on above:Order Comment: Specimen Type: BLOOD SPECIMENOrdering Facility: [facility] Address:[address] [place] [address] Performed By: #### 72776-9 ####[facility] LABCLIA [id number] [place], [place] [address]Kdnsjzgyz (Bld) [#/Vol]257 10*3/hPEjzljv695-566DaheqkkocTriHealth Good Samaritan Hospital on above:Order Comment: Specimen Type: BLOOD SPECIMENOrdering Facility: [facility] Address:[address] [place], [place] [address]Performed By: #### 95080-1 ####[facility] LABIA [id number] [place], [place] [address]VIA (Bld) [#/Vol]3.71 10*6/uLLow3.90-5.20[facility] on above:Order Comment: Specimen Type: BLOOD SPECIMENOrdering Facility: [facility] Address:[address] [place], [place] [address]Performed By: #### 44029-4 ####[facility]ENTERIA [id number] [place], [place] [address]VXV (Bld) [#/Vol]8.64 10*3/uL Normal3.70-11.00[facility] on above:Order Comment: Specimen Type: BLOOD SPECIMENOrdering Facility: [facility] Address:[address] [place], [place] [address]Performed By: #### 97471-8 ####[facility] LABIA [id number] [place], [place] [address]OTCFENkh 41-01-0407NMAQVZZciwo (SP) Office (HEMASA) SANNA RENDON ([id number]) 1985 F Date Time Provider Department 03/02/25 11:30 AM KATHERINE NEGRETE During your visit today, we recorded the following information about you: Temperature Pulse Respiration Blood pressure 97.2 degrees 73/minute 16/minute 133/79 Weight 97.2 kg Katherine Negrete APRN.CNP 03/02/2025 8:18 PM Signed NAME: Sanna Rendon CLINIC NO.: [id number] DATE OF SERVICE: March 02, 2025 (Penelope) [...] later in 2018. These were found in [place], [place]. 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 NormalMary Rutan Hospitalprehensive metabolic 2000 panelon 03-02-2025 Albumin [Mass/Vol]4.1 g/dLNormal3.9-4.9CProvidence Hospital on above:Order Comment: Specimen Type: BLOOD SPECIMENOrdering Facility: [facility] Address:[address] [place], [place] [address]Performed By: #### 44714-8 ####[facility] LABCLIA [id number] [place], [place] [address]KLT [Catalytic activity/Vol]64 U/CPqcoqy44-401 [facility] on above:Order Comment: Specimen Type: BLOOD SPECIMENOrdering Facility: [facility] Address:[address] [place], [place] [address]Performed By: #### 57050-9 ####[facility] LABCLIA [id number] [place], [place] [address]IFT [Catalytic activity/Vol]10 U/LNormal7-38[facility] on above:Order Comment: Specimen Type: BLOOD SPECIMENOrdering Facility: [facility] Address:[address] [place], [place] [address]Performed By: #### 46018- 8 ####[facility] LABCLIA [id number] [place], [place] [address]Kocmj gap [Moles/Vol]13 mmol/LNormal8-15[facility] on above:Order Comment: Specimen Type: BLOOD SPECIMENOrdering Facility: [facility] Address:[address] [place], [place] [address]Performed By: #### 25318-2 ####[facility] LABCLIA [id number] [place], [place] [address]KZU [Catalytic activity/Vol]12 U/VDnt03-32FcgddupiqTriHealth Good Samaritan Hospital on above:Order Comment: Specimen Type: BLOOD SPECIMENOrdering Facility: [facility] Address:[address] [place], [place] [address]Performed By: #### 06110-3 ####[facility] LABCLIA [id number] [place] [address] Bilirubin [Mass/Vol]0.2 mg/dLNormal0.2-1.3CProvidence Hospital on above:Order Comment: Specimen Type: BLOOD SPECIMENOrdering Facility: [facility] Address:[address] [place], [place] [address]Performed By: #### 11732-8 ####[facility] LABCLIA [id number] [place], [place] [address]Xsteoin [Mass/Vol]10.3 mg/dLHigh8.5-10.2CProvidence Hospital on above:Order Comment: Specimen Type: BLOOD SPECIMENOrdering Facility: [facility] Address:[address] [place], [place] [address]Performed By: #### 52943-1 ####[facility] LABCLIA [id number] [place], [place] [address]Ahupjwhm [Moles/Vol]97 mmol/FKct04-080NinurbkrnTriHealth Good Samaritan Hospital on above:Order Comment: Specimen Type: BLOOD SPECIMENOrdering Facility: [facility] Address:[address] [place], [place] [address]Performed By: #### 97346- 8 ####[facility] LABCLIA [id number] [facility] [place] [place], [place] [address]TG3 [Moles/Vol]21 mmol/OBvj83-70CrsupjqrxTriHealth Good Samaritan Hospital on above:Order Comment: Specimen Type: BLOOD SPECIMENOrdering Facility: [facility] Address:[address] [place], [place] [address]Performed By: #### 49845-0 ####[facility] LABCLIA [id number] [place], [place] [address]Ktkdfchfpw [Mass/Vol]0.54 mg/dL Low0.58-0.96[facility] on above:Order Comment: Specimen Type: BLOOD SPECIMENOrdering Facility: [facility] Address:[address] [place], [place] [address]Performed By: #### 15154-6 ####[facility] LABCLIA [id number] [place] [address] eGFRcr SerPlBld CKD-EPI 1942438 mL/min/1.73m???Normal>=60[facility] on above:Order Comment: Specimen Type: BLOOD SPECIMENOrdering Facility: [facility] Address:[address] [place], [place] [address]Result Comment: Estimated Glomerular Filtration Rate (eGFR) is [...] accurately reflect actual GFR. Performed By: #### 78293-6 ####[facility] LABIA [id number] [place], [place] [address]Wlwttby [Mass/Vol]71 mg/dLLow 74-99[facility] on above:Order Comment: Specimen Type: BLOOD SPECIMENOrdering Facility: [facility] Address:[address] [place], [place] [address]Result Comment: The [place] [employer] (ADA) provides guidance for cutoff [...] Standards of Medical Care in Diabetes 2016, [place] [employer]. Diabetes Care. 2016.39(Suppl 1).Performed By: #### 47702-3 ####[facility] LABCLIA [id number] [place], [place] [address]Upyrqcsmh [Moles/Vol]3.9 mmol/LNormal3.7-5.1CProvidence Hospital on above:Order Comment: Specimen Type: BLOOD SPECIMENOrdering Facility: [facility] Address:[address] [place], [place] [address]Performed By: #### 43541-7 ####[facility] LABCLIA [id number] [place], [place] [address]Sofgopy [Mass/Vol]7.2 g/dLNormal6.3-8.0[facility] on above:Order Comment: Specimen Type: BLOOD SPECIMENOrdering Facility: [facility] Address:[address] [place], [place] [address]Performed By: #### 62063- 8 ####[facility] LABCLIA [id number] [place], [place] [address]Ahucfm [Moles/Vol]131 mmol/OBdx028-653XqbilumstTriHealth Good Samaritan Hospital on above:Order Comment: Specimen Type: BLOOD SPECIMENOrdering Facility: [facility] Address:[address] [place], [place] [address]Performed By: #### 78683-4 ####[facility] LABCLIA [id number] [place], [place] [address]Cmio nitrogen [Mass/Vol]9 mg/dL Normal7-21[facility] on above:Order Comment: Specimen Type: BLOOD SPECIMENOrdering Facility: [facility] Address:[address] [place], [place] [address], [place] [address]Performed By: #### 09696-4 ####[facility] LABCLIA [id number] [place] [address] US OB BPP W NON-STRESSon 02-86-7149[place], [place] [address] Ultrasound Report Signed Patient: SANNA RENDON MR#: [id number] : 1985 Acct:[id number] Age/Sex: 39 / F ADM Date: 02/26/25 Loc: US Attending Dr: Wilton Herrmann D.O. Ordering Physician: Wilton Herrmann D.O. Date of Service: 02/26/25 Procedure(s): US OB BPP w non-stress Accession Number(s): [id number] cc: Wilton Herrmann D.O.; Physician,Non-Staff M.DLazara The [place] [address] Patient Name: SANNA RENDON MRN: [id number] date: 1985 Sex: F Assigned Patient Location: US Current Patient Location: Accession/Order Number: [id number] Exam Date: 02/26/2025 19:42 Report Date: 02/27/2025 [...] Pisano M.D. 02/27/2025 10:53 AM Dictation Location: [place] [address] Electronically authenticated by: [id number] Y Date: 02/27/2025 10:53 Dictated By: Pamela Pisano M.D. Signed By: 02/27/25 1056 DD/ 1053 TD/TT: Clinical Informatics Director:MANUELHRadiology, Radiologist, - 02/27/2025 [place] [address] Ultrasound Report Signed Patient: SANNA RENDON MR#: [id number] : 1985 Acct:[id number] Age/Sex: 39 / F ADM Date: 02/26/25 Loc: US Attending Dr: Wilton Herrmann D.O. Ordering Physician: Wilton Herrmann D.O. Date of Service: 02/26/25 Procedure(s): US OB BPP w non-stress Accession Number(s): [id number] cc: Wilton Herrmann D.O.; Physician,Non-Staff Tamia The [address] [id number] Patient Name: SANNA RENDON MRN: [id number] date: 1985 Sex: F Assigned Patient Location: Current Patient Location: Accession/Order Number: [id number] Exam Date: 02/26/2025 19:42 Report Date: 02/27/2025 [...] Pisano M.D. 02/27/2025 10:53 AM Dictation Location: [place] [address] Electronically authenticated by: [id number] Y Date: 02/27/2025 10:53 Dictated By: Pamela Pisano M.D. Signed By: 02/27/25 1056 DD/ 1053 TD/TT: Clinical Informatics Director: [facility] HealthcareRadiology Study observation (narrative)[facility] HealthcareUS OB BPP W NON-STRESSOrdered By: Radiologist Radiology on 94-68-7331ZERVShriners Hospitals for Children Work Phone: Urinalysis macro (dipstick) panel (U)on [...] - 1.03[facility] Urobilinogen, UA0.20.2 - 12 mg/dLNOSaint Alexius HospitalNOSaint Alexius HospitalNo Panel InformationOrdered By: Radiologist Radiology on 96-31-8161JVGXShriners Hospitals for Children Work Phone: No Panel Informationon 27-73-5609Igaenrakk Study observation (narrative)SHILOH BrowningUS OB BPP W NON-STRESSon 02-20-2025 [place] [address] Ultrasound Report Signed Patient: SANNA RENDON MR#: [id number] : 1985 Acct:[id number] Age/Sex: 39 / F ADM Date: 02/19/25 Loc: US Attending Dr: Wilton Herrmann D.O. Ordering Physician: Wilton Herrmann D.O. Date of Service: 02/19/25 Procedure(s): US OB BPP w non-stress Accession Number(s): [id number] cc: Wilton Herrmann D.O.; Physician,Non-Staff M.DLazara The [place] [id number] Patient Name: SANNA RENDON MRN: [id number] date: 1985 Sex: F Assigned Patient Location: LAB Current Patient Location: Accession/Order Number: [id number] Exam Date: 02/19/2025 19:47 Report Date: 02/20/2025 [...] Pisano M.D. 02/20/2025 8:37 AM Dictation Location: [place] [address] Electronically authenticated by: [id number] Y Date: 02/20/2025 08:37 Dictated By: Pamela Pisano M.D. Signed By: 02/20/25 0840 DD/ 0837 TD/TT: Clinical Informatics Director:TBHRadiology, Radiologist, - 02/20/2025 [place] [address] Ultrasound Report Signed Patient: SANNA RENDON MR#: [id number] : 1985 Acct:[id number] Age/Sex: 39 / F ADM Date: 02/19/25 Loc: US Attending Dr: Wilton Herrmann D.O. Ordering Physician: Wilton Herrmann D.O. Date of Service: 02/19/25 Procedure(s): US OB BPP w non-stress Accession Number(s): [id number] cc: Wilton Herrmann D.O.; Physician,Non-Staff Tamia The [place] [id number] Patient Name: SANNA RENDON MRN: [id number] date: 1985 Sex: F Assigned Patient Location: LAB Current Patient Location: Accession/Order Number: [id number] Exam Date: 02/19/2025 19:47 Report Date: 02/20/2025 [...] Pisano M.D. 02/20/2025 8:37 AM Dictation Location: [place] [address] Electronically authenticated by: [id number] Y Date: 02/20/2025 08:37 Dictated By: Pamela Pisano M.D. Signed By: 02/20/25 0840 DD/ 0837 TD/TT: Clinical Informatics Director: SHILOH Ibanez OB GROWTHon 32-33-9176[place]drTr[place], [place] [address] Ultrasound Report Signed Patient: SANNA RENDON MR#: [id number] : 1985 Acct:[id number] Age/Sex: 39 / F ADM Date: 02/19/25 Loc: US Attending Dr: Wilton Herrmann D.O. Ordering Physician: Wilton Herrmann D.O. Date of Service: 02/19/25 Procedure(s): US OB growth Accession Number(s): [id number] cc: Wilton Herrmann D.O.; Physician,Non-Staff M.Ashvin The [place] [id number] Patient Name: SANNA RENDON MRN: [id number] date: 1985 Sex: F Assigned Patient Location: LAB Current Patient Location: Accession/Order Number: [id number] Exam Date: 02/19/2025 19:47 Report Date: 02/20/2025 [...] Pisano M.D. 02/20/2025 8:37 AM Dictation Location: [place] [address] Electronically authenticated by: [id number] Y Date: 02/20/2025 08:37 Dictated By: Pamela Pisano M.D. Signed By: 02/20/25839 DD/ 6 TD/TT: Clinical Informatics Director:TBHRadiology, Radiologist, - 02/20/2025 [place] [address] Ultrasound Report Signed Patient: SANNA RENDON MR#: [id number] : 1985 Acct:[id number] Age/Sex: 39 / F ADM Date: 02/19/25 Loc: US Attending Dr: Wilton Herrmann D.O. Ordering Physician: Wilton Herrmann D.O. Date of Service: 02/19/25 Procedure(s): US OB growth Accession Number(s): [id number] cc: Wilton Herrmann D.O.; Physician,Non-Staff [facility] [place] [id number] Patient Name: SANNA RENDON MRN: [facility]:[id number] date: 1985 Sex: F Assigned Patient Location: LAB Current Patient Location: Accession/Order Number: [id number] Exam Date: 02/19/2025 19:47 Report Date: 02/20/2025 [...] Pisano M.D. 02/20/2025 8:37 AM Dictation Location: [place] [address] Electronically authenticated by: [id number] Y Date: 02/20/2025 08:37 Dictated By: Pamela Pisano M.D. Signed By: 02/20/25 0840 DD/ TD/TT: Clinical Informatics Director: SHILOH Colon CBC WITH AUTO DIFFon [id number] ABSOLUTE AUTO0.0[facility] HealthcareBasophils/100 WBC (Bld)0.2 %0.2 - 2.0 %SHILOH HealthcareEosinophils/100 WBC (Bld)0.3 %Low0.9 - 7.0 %[facility]S HealthcareErythrocyte distribution width (RBC) [Ratio]13.1 %11.0 - 15.0 %NOMS HealthcareHematocrit (Bld) [Volume fraction]34.6 %Low36.0 - 48.0 %NOM HealthcareHemoglobin (Bld) [Mass/Vol]12.1 g/dL12.0 - 16.0 g/dLNOID HealthcareIMMATURE GRANULOCYTES ABS AUTO0.06HighNOID HealthcareImmature granulocytes/100 WBC (Bld)0.6 %High0.0 - 0.5 %NOMS HealthcareInterpretation and review of laboratory resultsAbnormalNOID HealthcareLYMPHOCYTES ABSOLUTE AUTO2.3 NOM HealthcareLymphocytes/100 WBC (Bld)24.3 %20.5 - 60.0 %[facility] SystemH (RBC) [Entitic mass]31.7 pg26.7 - 34.0 pgNOSaint Alexius HospitalMCHC (RBC) [Mass/Vol] 35.0 g/dL29.9 - 35.2 g/dLShriners Hospitals for ChildrenMCV (RBC) [Entitic vol]90.6 fL81.0 - 99.0 fLNOID HealthcareMONOCYTES ABSOLUTE AUTO0.5NOMS HealthcareMonocytes/100 WBC (Bld)5.6 %1.7 - 12.0 %NOM HealthcareNEUTROPHILS ABSOLUTE AUTO6.6HighNOMS HealthcareNeutrophils/100 WBC (Bld)69.0 %43.0 - 75.0 %[facility] HealthcarePlatelet mean volume (Bld) [Entitic vol]9.7 fL9.5 - 13.5 fLNOSaint Alexius HospitalTBH EO #0.0NOMS [facility] CenterTB XTW361OLKE [facility] CenterTB RBC3.82LowNOMS [facility] CenterTB WBC9.6NOID HealthcareCLINISYNCNOMS HealthcareUrinalysis macro (dipstick) panel (U)on 15-12-1219Vzlpzxvlk, UANegativeNegative - 4(70) +++ mg/dLNOMS HealthcareBlood, UANegativeNegative - 50 Max/mcLNOMS HealthcareClarity, UAClearNOMS Healthcare Color, UAYellowNOMS HealthcareGlucose, UANegativeNegative - 2000(110) ++++ mg/dL NOMS HealthcareInterpretation and review of laboratory resultsAbnormalNOID HealthcareKetones, UANegativeNegative - 160(16) ++++ mg/dLNOID Healthcare Leukocytes, UATraceNegative - 500+++ John/mcLNOID HealthcareNitrite, UANegative Negative - PositiveNOMS HealthcarepH, UA6.55 - 9NOMS HealthcareProtein, UA NegativeNegative - 2000(20) ++++ mg/dLNOMS HealthcareSpec Grav, UA1.0051 - 1.03 NOMS HealthcareUrobilinogen, UA2.00.2 - 12 mg/dLNOMS HealthcareNOMS Healthcare CNPNon 70-26-0041SDOLAlnaiuvlg ([place]) SANNA RENDON ([id number]) 1985 F Date Time Provider Department 01/29/25 [...] Date Reviewed: 12/24/2024 Reviewed by: Katherine Negrete APRN.CLINICAL LAW PROFESSOR - Fully Assessed Reason for Visit: Fatigue [...] 05/28/2024 Encounter Status:Closed by RACHAEL JOHNSON [facility]/30/25[facility] 45-38-1221SIJVRqpvzvwxl ([place]) SANAN RENDON ([id number]) 1985 F Date Time Provider Department 01/26/25 [...] Date Reviewed: 12/24/2024 Reviewed by: Penelope, Katherine, CRISIS MANAGER.CLINICAL LAW PROFESSOR - Fully Assessed Prescriptions as of 01/26/2025 [...] 05/28/2024 Encounter Status:Closed by RACHAEL JOHNSON on 01/26/25NoalCPremier Health Miami Valley HospitalUrinalysis macro (dipstick) panel (U)on 59-59-5109Txqxsqbyo, UANegative Negative - 4(70) +++ mg/dLNOMS HealthcareBlood, UANegativeNegative - 50 Max/mcL NOMS HealthcareClarity, UAClearNOID HealthcareColor, UAYellowNOID Healthcare Glucose, UANegativeNegative - 2000(110) ++++ mg/dLNOMS HealthcareInterpretation and review of laboratory resultsNormalNOID HealthcareKetones, UANegativeNegative - 160(16) ++++ mg/dLNOMS HealthcareLeukocytes, UANegativeNegative - 500+++ John/mcLNOMS HealthcareNitrite, UANegativeNegative - PositiveNOMS HealthcarepH, UA65 - 9NOMS HealthcareProtein, UANegativeNegative - 2000(20) ++++ mg/dLNOMS HealthcareSpec Grav, UA1.011 - 1.03NOMS HealthcareUrobilinogen, UA0.20.2 - 12 mg/dLNOMS HealthcareNOMS HealthcareTSHon 75-87-1205SYU Qn1.85 m[IU]/LNormal 0.34-5.60[facility] Morgantoner [facility] HospitalComment on above:Performed By: #### [id number] #### Braulio [facility] [address], [place] [address]Gfurwmsggi macro (dipstick) panel (U)on 24-48-7816Wzhysjsot, UA NegativeNegative - 4(70) +++ mg/dLNOMS HealthcareBlood, [...] HealthcareNOMS HealthcareCBC W Auto Differential panel (Bld)on 91-30-7982Ekiemrkuv (Bld) [#/Vol]10*3/uLNormal<0.11CPremier Health Miami Valley HospitalComment on above:Order Comment: Specimen Type: BLOOD SPECIMENOrdering Facility: [facility] Address:[address] [place], [place] [address]Gdhbboqka By: #### 37608-6 ####[facility] LABCLIA [id number] [place], [place] [address]Aonehejus/100 WBC (Bld)0.2 % NormalTriHealth Good Samaritan Hospital on above:Order Comment: Specimen Type: BLOOD SPECIMENOrdering Facility: [facility] Address:[address] [place], [place] [address]Performed By: #### 96866-6 ####[facility] LABCLIA [id number] [place] [address] Differential cell count method Nom (Bld)AutoNormalClevelDosher Memorial Hospital Comment on above:Order Comment: Specimen Type: BLOOD SPECIMENOrdering Facility: [facility] Address:[address] [place] [address] Performed By: #### 58669-9 ####[facility] LABCLIA [id number] [place], [place] [address]Kkyznbplddd (Bld) [#/Vol]0.03 10*3/uLNormal<0.46[facility] on above:Order Comment: Specimen Type: BLOOD SPECIMENOrdering Facility: [facility] Address:[address] [place], [place] [address]Performed By: #### 10819-3 ####[facility] LABCLIA [id number] [place], [place] [address]Qpowsihyilx/100 WBC (Bld)0.4 %NormalTriHealth Good Samaritan Hospital on above:Order Comment: Specimen Type: BLOOD SPECIMENOrdering Facility: [facility] Address:[address] [place], [place] [address]Performed By: #### 40098-1 ####[facility] LABIA [id number] [place], [place] [address]Smcjbfwpcmo distribution width (RBC) [Ratio]13.5 %Pasarr37.5-15.0[facility] on above: Order Comment: Specimen Type: BLOOD SPECIMENOrdering Facility: [facility] Address:[address] [place], [place] [address]Performed By: #### 96548- 8 ####[facility] LABCLIA [id number] [place], [place] [address]Jqlivcqnxy (Bld) [Volume fraction]34.6 %Low36.0-46.0 [facility] on above:Order Comment: Specimen Type: BLOOD SPECIMENOrdering Facility: [facility] Address:[address] [place], [place] [address]Performed By: #### 72357-7 ####[facility] LABCLIA [id number] [place], [place] [address]Rgwhmhwyqp (Bld) [Mass/Vol]12.0 g/vXAfpqkm31.5-15.5CProvidence Hospital on above: Order Comment: Specimen Type: BLOOD SPECIMENOrdering Facility: [facility] Address:[address] [place], [place] [address]Performed By: #### 77805- 8 ####[facility] LABCLIA [id number] [place], [place] [address]Faxskctv granulocytes (Bld) [#/Vol]0.04 10*3/uLNormal <0.10[facility] on above:Order Comment: Specimen Type: BLOOD SPECIMENOrdering Facility: [facility] Address:[address] [place], [place] [address]Performed By: #### 58642-9 ####[facility] LABCLIA [id number] [place], [place] [address]Yrfkqvyf granulocytes/100 WBC (Bld)0.5 %NormalTriHealth Good Samaritan Hospital on above: Order Comment: Specimen Type: BLOOD SPECIMENOrdering Facility: [facility] Address:[address] [place], [place] [address]Performed By: #### 69256- 8 ####[facility] LABCLIA [id number] [place], [place] [address]Qaqnpaejhiz (Bld) [#/Vol]2.45 10*3/uLNormal1.00-4.00 [facility] on above:Order Comment: Specimen Type: BLOOD SPECIMENOrdering Facility: [facility] Address:[address] [place], [place] [address]Performed By: #### 37629-2 ####[facility] LABCLIA [id number] [place], [place] [address]Tcvfdlbemwc/100 WBC (Bld)28.7 %NormalTriHealth Good Samaritan Hospital on above:Order Comment: Specimen Type: BLOOD SPECIMENOrdering Facility: [facility] Address:[address] [place], [place] [address]Performed By: #### 34519-0 ####[facility] LABCLIA [id number] [place], [place] [address]GJC (RBC) [Entitic mass]31.6 drLfaqsp73.0-34.0[facility] on above:Order Comment: Specimen Type: BLOOD SPECIMENOrdering Facility: [facility] Address:[address] [place], [place] [address]Performed By: #### 74008-3 ####[facility] LABCLIA [id number] [place], [place] [address]OMTR (RBC) [Mass/Vol]34.7 g/iQRbrrhq03.5-36.0[facility] on above: Order Comment: Specimen Type: BLOOD SPECIMENOrdering Facility: [facility] Address:[address] [place], [place] [address]Performed By: #### 17873- 8 ####[facility] LABCLIA [id number] [place], [place] [address]TTO (RBC) [Entitic vol]91.1 tTDliyda85.0-100.0[facility] on above:Order Comment: Specimen Type: BLOOD SPECIMENOrdering Facility: [facility] Address:[address] [place], [place] [address]Performed By: #### 12028-1 ####[facility] LABCLIA [id number] [place], [place] [address]Qxhppgkbv (Bld) [#/Vol]0.44 10*3/uLNormal<0.87[facility] on above:Order Comment: Specimen Type: BLOOD SPECIMENOrdering Facility: [facility] Address:[address] [place], [place] [address]Performed By: #### 91009- 8 ####[facility] LABCLIA [id number] [place], [place] [address]Kantyqhxx/100 WBC (Bld)5.1 %NormalTriHealth Good Samaritan Hospital on above:Order Comment: Specimen Type: BLOOD SPECIMENOrdering Facility: [facility] Address:[address] [place], [place] [address]Performed By: #### 10251-3 ####[facility] LABCLIA [id number] [place], [place] [address]Wawhlvzblcv (Bld) [#/Vol]5.57 10*3/uLNormal1.45-7.50[facility] on above:Order Comment: Specimen Type: BLOOD SPECIMENOrdering Facility: [facility] Address:[address] [place], [place] [address]Performed By: #### 70230-1 ####[facility] LABCLIA [id number] [place], [place] [address]Pmbdbkaiihl/100 WBC (Bld)65.1 %NormalTriHealth Good Samaritan Hospital on above:Order Comment: Specimen Type: BLOOD SPECIMENOrdering Facility: [facility] Address:[address] [place], [place] [address]Performed By: #### 88434-9 ####[facility] LABCLIA [id number] [place], [place] [address]Ekfdebrwr RBC (Bld) [#/Vol] 10*3/uLNormal<0.01[facility] on above:Order Comment: Specimen Type: BLOOD SPECIMENOrdering Facility: [facility] Address:[address] [place], [place] [address]Performed By: #### 49206-8 ####[facility] LABCLIA [id number] [place], [place] [address]Wjdqihtql RBC/100 WBC (Bld) [Ratio]0.0 /100 WBCNormal [facility] on above:Order Comment: Specimen Type: BLOOD SPECIMENOrdering Facility: [facility] Address:[address] [place], [place] [address]Performed By: #### 95527-2 ####[facility] LABIA [id number] [place], [place] [address]Illixfpt mean volume (Bld) [Entitic vol]9.7 fLNormal9.0-12.7CProvidence Hospital on above:Order Comment: Specimen Type: BLOOD SPECIMENOrdering Facility: [facility] Address:[address] [place] [address] Performed By: #### 54246-4 ####[facility] LABCLIA [id number] [place], [place] [address]Hyjobeuxy (Bld) [#/Vol]260 10*3/bCNspvgu683-629MryubxuzbTriHealth Good Samaritan Hospital on above:Order Comment: Specimen Type: BLOOD SPECIMENOrdering Facility: [facility] Address:[address] [place], [place] [address]Performed By: #### 62986-4 ####[facility] LABCLIA [id number] [place], [place] [address]YDA (Bld) [#/Vol]3.80 10*6/uLLow3.90-5.20[facility] on above:Order Comment: Specimen Type: BLOOD SPECIMENOrdering Facility: [facility] Address:[address] [place], [place] [address]Setdfhclg By: #### 32806-2 ####[facility] CENTERIA [id number] [place], [place] [address]HVB (Bld) [#/Vol]8.55 10*3/uL Normal3.70-11.00[facility] Mer[facility] HospitalComchildren's hospital [facility] on above:Order Comment: Specimen Type: BLOOD SPECIMENOrdering Facility: [facility] Address:[address] [place] [address]Klejqmbpr By: #### 25935-6 ####[facility] LABCLIA [id number] [place], [place] [address]AVXYDBtu 76-22-5544VFOUBXMotxp (SP) Office ([place]) SANNA RENDON ([id number]) 1985 F Date Time Provider Department 12/23/24 11:30 AM KATHERINE NEGRETE During your visit today, we recorded the following information about you: Temperature Pulse Respiration Blood pressure 97.6 degrees 80/minute 16/minute 103/69 Weight Height 94.4 kg 1.677 m Katherine Negrete APRN.CLINICAL LAW PROFESSOR 12/24/2024 9:07 PM Signed NAME: Sanna Rendon CLINIC NO.: [id number] DATE OF SERVICE: December 23, 2024 (Penelope) [...] later in 2018. These were found in [place], [place]. I don't have access to these [...] a target-like rash shortly before presenting to [facility] in 2015 with headaches and [...] vitamin D supplementat (more content not included)...Normal [facility] HospitalComprehensive metabolic 2000 panelon 03-77-9156Uooophe [Mass/Vol]4.1 g/dLNormal3.9-4.9CProvidence Hospital on above:Order Comment: Specimen Type: BLOOD SPECIMENOrdering Facility: [facility] Address:[address] [id number] By: #### 30747- 8 ####[facility] LABCLIA [id number] FABI DUMONTPHOENIX INDI[facility] MEDICAL CENTERVANESSASELTZ[place], [place] [address]USJ [Catalytic activity/Vol]43 U/LKxwftw78-514ZuvxchsjdTriHealth Good Samaritan Hospital on above:Order Comment: Specimen Type: BLOOD SPECIMENOrdering Facility: [facility] Address:[address] [place], [place] [address]Performed By: #### 67938-5 ####[facility] LABCLIA [id number] FABI GREENSEPHOENIX INDIAN MEDICAL CENTERTEETEEUMATILLA, [place] [address]MHQ [Catalytic activity/Vol]11 U/LNormal7-38[facility] on above:Order Comment: Specimen Type: BLOOD SPECIMENOrdering Facility: [facility] Address:[address] [place], [place] [address]Performed By: #### 07251- 8 ####[facility] LABCLIA [id number] [facility] [place], [place] [address]Vatoj gap [Moles/Vol]12 mmol/LNormal8-15[facility] on above:Order Comment: Specimen Type: BLOOD SPECIMENOrdering Facility: [facility] Address:[address] [place], [place] [address]Performed By: #### 84204-9 ####[facility] LABCLIA [id number] AFBI CHERRYPHOENIX INDIAN MEDICAL CENTERVANESSASELTZ[place], [place] [address]DQB [Catalytic activity/Vol]12 U/KFes04-60AufrwyevuTriHealth Good Samaritan Hospital on above:Order Comment: Specimen Type: BLOOD SPECIMENOrdering Facility: [facility] Address:[address] [place], [place] [address]Performed By: #### 80489-8 ####[facility] LABCLIA [id number] [facility] PETERSEPHOENIX INDIAN [place] [address] Bilirubin [Mass/Vol]0.2 mg/dLNormal0.2-1.3CProvidence Hospital on above:Order Comment: Specimen Type: BLOOD SPECIMENOrdering Facility: [facility] Address:[address] [place], [place] [address]Performed By: #### 58538-8 ####[facility] LABCLIA [id number] [facility]ENTERSEMANH[place], [place] [address]Ikincto [Mass/Vol]9.5 mg/dLNormal8.5-10.2CProvidence Hospital on above:Order Comment: Specimen Type: BLOOD SPECIMENOrdering Facility: [facility] Address:[address] [place], [place] [address]Performed By: #### 13780-4 ####[facility] LABCLIA [id number] [place], [place] [address]Jebjvyeg [Moles/Vol]98 mmol/CShyocu78-785AahdqrrqsTriHealth Good Samaritan Hospital on above:Order Comment: Specimen Type: BLOOD SPECIMENOrdering Facility: [facility] Address:[address] [place], [place] [address]Performed By: #### 99936- 8 ####[facility] LABCLIA [id number] [facility] [place], [place] [address]DR2 [Moles/Vol]20 mmol/PSck89-74TstofncvgTriHealth Good Samaritan Hospital on above:Order Comment: Specimen Type: BLOOD SPECIMENOrdering Facility: [facility] Address:[address] [place], [place] [address]Performed By: #### 87601-1 ####[facility] LABCLIA [id number] [place], [place] [address]Dptdiubjdn [Mass/Vol]0.54 mg/dL Low0.58-0.96[facility] on above:Order Comment: Specimen Type: BLOOD SPECIMENOrdering Facility: [facility] Address:[address] [place], [place] [address]Performed By: #### 53864-3 ####[facility] LABCLIA [id number] [facility] [place] [address] eGFRcr SerPlBld CKD-EPI 4045999 mL/min/1.73m???Normal>=60[facility] on above:Order Comment: Specimen Type: BLOOD SPECIMENOrdering Facility: [facility] Address:[address] [place], [place] [address]Vtwhin Comment: Estimated Glomerular Filtration Rate (eGFR) is [...] accurately reflect actual GFR. Performed By: #### 36695-8 ####[facility] LABCLIA [id number] [place], [place] [address]Lmcvhiw [Mass/Vol]104 mg/dLHigh 74-99[facility] on above:Order Comment: Specimen Type: BLOOD SPECIMENOrdering Facility: [facility] Address:[address] [place] [address]Uaekaj Comment: The [place] [employer] Association (ADA) provides guidance for cutoff [...] Standards of Medical Care in Diabetes 2016, [place] [employer]. Diabetes Care. 2016.39(Suppl 1).Performed By: #### 48840-2 ####[facility] LABCLIA [id number] [place], [place] [address]Tyfgpbfgu [Moles/Vol]4.0 mmol/LNormal3.7-5.1CProvidence Hospital on above:Order Comment: Specimen Type: BLOOD SPECIMENOrdering Facility: [facility] Address:[address] [place], [place] [address]Gsrpwuikp By: #### 69645-1 ####[facility] LABCLIA [id number] [place], [place] [address]Yyumpnq [Mass/Vol]6.7 g/dLNormal6.3-8.0[facility] on above:Order Comment: Specimen Type: BLOOD SPECIMENOrdering Facility: [facility] Address:[address] [place], [place] [address]Performed By: #### 06328- 8 ####[facility] LABCLIA [id number] [place], [place] [address]Yedqen [Moles/Vol]130 mmol/SSng693-836RebptmlemTriHealth Good Samaritan Hospital on above:Order Comment: Specimen Type: BLOOD SPECIMENOrdering Facility: [facility] Address:[address] [place], [place] [address]Performed By: #### 22525-5 ####[facility] LABCLIA [id number] [place], [place] [address]Yyma nitrogen [Mass/Vol]7 mg/dL Normal7-21[facility] on above:Order Comment: Specimen Type: BLOOD SPECIMENOrdering Facility: [facility] Address:[address] [place], [place] [address]Performed By: #### 24857-3 ####[facility] LABCLIA [id number] [place] [address] Ferritin SerPl-mCncon 64-48-0899Kapufaya [Mass/Vol]43.5 ng/lMPwvsej68.7-205.1 [facility] on above:Order Comment: Specimen Type: BLOOD SPECIMENOrdering Facility: [facility] Address:[address] [place], [place] [address]Performed By: #### 83652-8, 2276-4, 2132-9 ####[facility] LABCLIA [id number] [place] [address] [place] AMERICAIron and Iron binding capacity panelon 08-26-2025 Iron [Mass/Vol]80 ug/tUMpziyv63-129AmmoklnuqTriHealth Good Samaritan Hospital on above: Order Comment: Specimen Type: BLOOD SPECIMENOrdering Facility: [facility] Address:[address] [place], [place] [address]Performed By: #### 42432- 8, 2275-07, 2131-12 ####[facility] LABCLIA [id number] [address] AMERICAIron binding capacity [Mass/Vol]437 ug/aOCatu983-984KdugkktqsTriHealth Good Samaritan Hospital on above:Order Comment: Specimen Type: BLOOD SPECIMENOrdering Facility: [facility] Address:[address] [place], [place] [address]Performed By: #### 83242- 8, 2275-07, 2131-12 ####[facility] LABCLIA [id number] [address]Iron/TIBC [Molar ratio]18.3 %Fuhjdd28.0-57.0[facility] on above:Order Comment: Specimen Type: BLOOD SPECIMENOrdering Facility: [facility] Address:[address] [place], [place] [address]Performed By: #### 53373- 8, 2275-07, 2131-12 ####[facility] LABCLIA [id number] [place] [id number] [facility] AMERICAVit B12 [facility] 30-68-8696Qsbifwsrh (Vitamin B12) [Mass/Vol]328 pg/dPMtwlik906-4671DjfehyqykProvidence Hospital on above:Order Comment: Specimen Type: BLOOD SPECIMENOrdering Facility: [facility] Address:[address] [place], [place] [address]Performed By: #### 00712-8, 2275-07, 2131-12 ####[facility] LABCLIA [id number] [place] [id number] [facility] CENTERTB UA (CLEAN/CATCH) MASTER ESTHETICIAN/MICRO IF IND.on 38-40-3190OJSNAURTC URINENegativeNEGATIVENOMS HealthcareBLOOD URINENegative NEGATIVENOMS HealthcareClarity (U)CLEARCLEARNOMS HealthcareColor (U)LT. YELLOW YELLOWNOMS HealthcareGLUCOSE URINE UANegativeNEGATIVE mg/dLNOMS Healthcare Interpretation and review of laboratory resultsAbnormalNOMS HealthcareKetones Ql (U)NegativeNEGATIVE mg/dLNOMS HealthcareLeukocyte esterase Test strip Ql (U) SMALLAbnormalNEGATIVENOMS HealthcareNITRITE URINENegativeNEGATIVENOMS Healthcare pH (U)6.0 [pH]5.0 - 9.0NOMS HealthcarePROTEIN URINENegativeNEG/TRACE mg/dLNOMS HealthcareSPECIFIC GRAVITY URINE<=1.927Zxxqaiyk6.005 - 1.025NOMS HealthcareURINE MICROSCOPIC INDICATEDYESNOMS HealthcareUROBILINOGEN URINE0.2 EU/dL0.2 - 1.0 EU/dLNOID HealthcareCLINISYNCNOMS HealthcareUS OB CERVICAL LENGTHon 12-16-[address] [address] Ultrasound Report Signed Patient: SANNA RENDON MR#: [id number] : 1985 Acct:[id number] Age/Sex: 39 / F ADM Date: [facility]: Wilton Herrmann D.O. Ordering Physician: Wilton Herrmann D.O. Date of Service: 12/16/24 Procedure(s): US OB cervical length Accession Number(s): [id number] cc: Wilton Herrmann D.O.; PENELOPE CASAS [address] [address] Patient Name: SANNA RENDON MRN: [id number] date: 1985 Sex: F [facility]igned [facility] Current Patient Location: Accession/Order Number: [id number] Exam Date: 12/16/2024 20:39 Report Date: 12/16/2024 [...] Beltrán M.D. 12/16/2024 8:41 PM Dictation Location: Catarizm Electronically authenticated by: [id number] Y Date: 12/16/2024 20:41 Dictated By: Robert Beltrán D.O. Signed By: 12/16/242042 DD/ 40 TD/TT: Clinical Informatics Director:ELEVRadiologcarmen Radiologist, - 12/16/2024 [place] [address] Ultrasound Report Signed Patient: SANNA RENDON MR#: [id number] : 1985 Acct:[id number] Age/Sex: 39 / F ADM Date: [facility] [address]: Wilton Herrmann D.O. Ordering Physician: Wilton Herrmann D.O. Date of Service: 12/16/24 Procedure(s): US OB cervical length Accession Number(s): [id number] cc: Wilton Herrmann D.O.; PENELOPE CASAS [place] [id number] Patient Name: SANNA RENDON MRN: [id number] date: 1985 Sex: F Assigned [facility] Current Patient Location: Accession/Order Number: [id number] Exam Date: 12/16/2024 20:39 Report Date: 12/16/2024 [...] Beltrán M.D. 12/16/2024 8:41 PM Dictation Location: Catarizm Electronically authenticated by: [id number] Y Date: 12/16/2024 20:41 Dictated By: Robert Beltrán D.O. Signed By: 12/16/242042 DD/ 40 TD/TT: Clinical Informatics Director: SHILOH HealthcareRadiology Study observation (narrative)NOMS HealthcareUS OB CERVICAL LENGTHOrdered By: Radiologist Radiology on [phone] Hospitals for Children Work Phone: aLL THYROID STIM HORMONEon [phone] Qn1.508 m[IU]/LNOMS HealthcareCLINISYNCNOMS HealthcareUrinalysis macro (dipstick) panel (U)on [id number], UANegativeNegative - 4(70) +++ mg/dLNOID Healthcare Blood, UANegativeNegative - 50 Max/mcLNOID HealthcareClarity, UAClearNOMS HealthcareColor, UAYellowNOMS HealthcareGlucose, UANegativeNegative - 2000(110) ++++ mg/dLNOID HealthcareInterpretation and review of laboratory resultsNormal NOM HealthcareKetones, UANegativeNegative - 160(16) ++++ mg/dLNOID Healthcare Leukocytes, UANegativeNegative - 500+++ John/mcLNOID HealthcareNitrite, UA NegativeNegative - PositiveNOMS HealthcarepH, UA65 - 9NOMS HealthcareProtein, UA NegativeNegative - 2000(20) ++++ mg/dLNOID HealthcareSpec Grav, UA1.011 - 1.03 NOMS HealthcareUrobilinogen, UA1.00.2 - 12 mg/dLNOID HealthcareNOID Healthcare Urinalysis macro (dipstick) panel (U)on 47-56-3178Mykvwoqfy, UANegativeNegative - 4(70) +++ mg/dLNOMS HealthcareBlood, UANegativeNegative [...] 12 mg/dLNOMS HealthcareNOMS HealthcareGlucose random or fasting- [facility] 11-19-2024 External Glucose Fasting Or Random (Fbs)94[facility] ClinicUrinalysis macro (dipstick) panel (U)on 14-52-2242Drbskitlh, UA NegativeNegative - 4(70) +++ mg/dLNOMS HealthcareBlood, [...] 1.03NOMS HealthcareUrobilinogen, UA0.20.2 - 12 mg/dLNOMS HealthcareNOMS Wxirwxgfbz99([place])D3 SerPl-[facility] Hospitalon 94-37-725221061606-rwahfizijnkqjm D3 [Mass/Vol]32.1 ng/sTGixtdn60.0-80.0[facility] on above:Order Comment: Specimen Type: BLOOD SPECIMENOrdering Facility: [facility] Address:[address] [place], [place] [address]Result Comment: Classification of 25 [place] Vitamin D status: Deficiency/Insufficiency: < or = 30 ng/ml. Sufficiency/Optimal Levels: 31-80 ng/mL Toxicity: > 100 ng/mL. Test performed by chemiluminescent immunoassay.Performed By: #### 1989-3 ####[facility] LABCLIA [id number] [address] Auto Differential panel (Bld)on 25-16-8224Wnemolhqy (Bld) [#/Vol]0.03 10*3/uLNormal<0.11CPremier Health Miami Valley HospitalComment on above:Order Comment: Specimen Type: BLOOD SPECIMENOrdering Facility: [facility] Address:[address] [place], [place] [address]Performed By: #### 22422-6 ####[facility] LABIA [id number] [place], [place] [address]Yykfgqljt/100 WBC (Bld)0.3 % NormalTriHealth Good Samaritan Hospital on above:Order Comment: Specimen Type: BLOOD SPECIMENOrdering Facility: [facility] Address:[address] [place], [place] [address]Performed By: #### 75706-1 ####[facility] LABCLIA [id number] [place] [address] Differential cell count method Nom (Bld)AutoNormalCPremier Health Miami Valley Hospital Comment on above:Order Comment: Specimen Type: BLOOD SPECIMENOrdering Facility: [facility] Address:[address] [place] [address] Performed By: #### 05100-9 ####[facility] LABCLIA [id number] [place], [place] [address]Mqqnzechelq (Bld) [#/Vol]0.05 10*3/uLNormal<0.46[facility] on above:Order Comment: Specimen Type: BLOOD SPECIMENOrdering Facility: [facility] Address:[address] [place], [place] [address]Performed By: #### 90174-7 ####[facility] LABCLIA [id number] [place], [place] [address]Yqnpdhofdom/100 WBC (Bld)0.5 %NormalTriHealth Good Samaritan Hospital on above:Order Comment: Specimen Type: BLOOD SPECIMENOrdering Facility: [facility] Address:[address] [place], [place] [address]Performed By: #### 49006-9 ####[facility] LABCLIA [id number] [place], [place] [address]Ownwltoncdm distribution width (RBC) [Ratio]14.5 %Whgnfn32.5-15.0[facility] on above: Order Comment: Specimen Type: BLOOD SPECIMENOrdering Facility: [facility] Address:[address] [place], [place] [address]Performed By: #### 24441- 8 ####[facility] LABCLIA [id number] [place], [place] [address]Pvauebeeee (Bld) [Volume fraction]36.9 %Jbaxtn98.0-46.0 [facility] on above:Order Comment: Specimen Type: BLOOD SPECIMENOrdering Facility: [facility] Address:[address] [place], [place] [address]Performed By: #### 21829-0 ####[facility] LABIA [id number] [place], [place] [address]Kuohonhbus (Bld) [Mass/Vol]13.0 g/vSEahhsa22.5-15.5CProvidence Hospital on above: Order Comment: Specimen Type: BLOOD SPECIMENOrdering Facility: [facility] Address:[address] [place], [place] [address]Performed By: #### 50442- 8 ####[facility] LABCLIA [id number] [place], [place] [address]Npsuueec granulocytes (Bld) [#/Vol]10*3/uLNormal<0.10 [facility] on above:Order Comment: Specimen Type: BLOOD SPECIMENOrdering Facility: [facility] Address:[address] [place], [place] [address]Performed By: #### 74120-2 ####[facility] LABCLIA [id number] [place], [place] [address]Fcdnypbe granulocytes/100 WBC (Bld)0.2 %NormalTriHealth Good Samaritan Hospital on above: Order Comment: Specimen Type: BLOOD SPECIMENOrdering Facility: [facility] Address:[address] [place], [place] [address]Performed By: #### 18998- 8 ####[facility] LABIA [id number] [place], [place] [address]Kiwgtgdbkub (Bld) [#/Vol]2.50 10*3/uLNormal1.00-4.00 [facility] on above:Order Comment: Specimen Type: BLOOD SPECIMENOrdering Facility: [facility] Address:[address] [place], [place] [address]Performed By: #### 70365-2 ####[facility] LABIA [id number] [place], [place] [address]Gwczjyksyhc/100 WBC (Bld)26.3 %NormalTriHealth Good Samaritan Hospital on above:Order Comment: Specimen Type: BLOOD SPECIMENOrdering Facility: [facility] Address:[address] [place], [place] [address]Performed By: #### 44367-4 ####[facility] LABIA [id number] [place], [place] [address]VEG (RBC) [Entitic mass]30.6 zjAnxvhw76.0-34.0[facility] on above:Order Comment: Specimen Type: BLOOD SPECIMENOrdering Facility: [facility] Address:[address] [place], [place] [address]Performed By: #### 09948-3 ####[facility] LABCLIA [id number] [place], [place] [address]QDJV (RBC) [Mass/Vol]35.2 g/bDTcydja61.5-36.0[facility] on above: Order Comment: Specimen Type: BLOOD SPECIMENOrdering Facility: [facility] Address:[address] [place], [place] [address]Performed By: #### 16783- 8 ####[facility] LABCLIA [id number] [place], [place] [address]TDR (RBC) [Entitic vol]86.8 eEBwwzgc33.0-100.0[facility] on above:Order Comment: Specimen Type: BLOOD SPECIMENOrdering Facility: [facility] Address:[address] [place], [place] [address]Performed By: #### 26011-2 ####[facility] LABCLIA [id number] [place], [place] [address]Iriaxqrjm (Bld) [#/Vol]0.44 10*3/uLNormal<0.87[facility] on above:Order Comment: Specimen Type: BLOOD SPECIMENOrdering Facility: [facility] Address:[address] [place], [place] [address]Performed By: #### 52186- 8 ####[facility] LABCLIA [id number] [place], [place] [address]Whqmyjwep/100 WBC (Bld)4.6 %NormalTriHealth Good Samaritan Hospital on above:Order Comment: Specimen Type: BLOOD SPECIMENOrdering Facility: [facility] Address:[address] [place], [place] [address]Performed By: #### 84987-3 ####[facility] LABCLIA [id number] [place], [place] [address]Hcdgiskobdo (Bld) [#/Vol]6.48 10*3/uLNormal1.45-7.50[facility] on above:Order Comment: Specimen Type: BLOOD SPECIMENOrdering Facility: [facility] Address:[address] [place], [place] [address]Performed By: #### 25259-9 ####[facility] LABCLIA [id number] [place], [place] [address]Fntkjjbgmtd/100 WBC (Bld)68.1 %NormalTriHealth Good Samaritan Hospital on above:Order Comment: Specimen Type: BLOOD SPECIMENOrdering Facility: [facility] Address:[address] [place], [place] [address]Performed By: #### 61533-9 ####[facility] LABCLIA [id number] [place], [place] [address]Udmqfxqhg RBC (Bld) [#/Vol] 10*3/uLNormal<0.01[facility] on above:Order Comment: Specimen Type: BLOOD SPECIMENOrdering Facility: [facility] Address:[address] [place], [place] [address]Performed By: #### 45793-5 ####[facility] LABCLIA [id number] [place], [place] [address]Hhepldylg RBC/100 WBC (Bld) [Ratio]0.0 /100 WBCNormal [facility] on above:Order Comment: Specimen Type: BLOOD SPECIMENOrdering Facility: [facility] Address:[address] [place], [place] [address]Performed By: #### 03153-8 ####[facility] LABIA [id number] [place], [place] [address]Xebyrmcn mean volume (Bld) [Entitic vol]9.8 fLNormal9.0-12.7CProvidence Hospital on above:Order Comment: Specimen Type: BLOOD SPECIMENOrdering Facility: [facility] Address:[address] [place] [address] Performed By: #### 41112-7 ####[facility] LABCLIA [id number] [place], [place] [address]Ivxcgeyxg (Bld) [#/Vol]327 10*3/mQCvleii799-091UzlwozqfpTriHealth Good Samaritan Hospital on above:Order Comment: Specimen Type: BLOOD SPECIMENOrdering Facility: [facility] Address:[address] [place], [place] [address]Performed By: #### 87585-3 ####[facility] LABIA [id number] [place], [place] [address]DQT (Bld) [#/Vol]4.25 10*6/uLNormal3.90-5.20[facility] on above:Order Comment: Specimen Type: BLOOD SPECIMENOrdering Facility: [facility] Address:[address] [place], [place] [address]Performed By: #### 13825-4 ####[facility] LABIA [id number] [place], [place] [address]GUQ (Bld) [#/Vol]9.52 10*3/uLNormal3.70-11.00[facility] on above: Order Comment: Specimen Type: BLOOD SPECIMENOrdering Facility: [facility] Address:[address] [place], [place] [address]Performed By: #### 21921- 8 ####[facility] LABIA [id number] [place], [place] [address]MHQRZLke 20-23-5963NFOHHQMclim (SP) Office (HEMASA) SANNA RENDON ([id number]) 1985 F Date Time Provider Department 10/28/24 2:30 PM KATHERINE NEGRETE During your visit today, we recorded the following information about you: Temperature Pulse Respiration Blood pressure 97 degrees 82/minute 16/minute 122/77 Weight Last Period 94.1 kg 10/28/24 Katherine Negrete APRN.CLINICAL LAW PROFESSOR 10/29/2024 9:44 PM Signed NAME: Sanna Rendon CLINIC NO.: [id number] DATE OF SERVICE: October 28, 2024 (Penelope) [...] later in 2018. These were found in [place], [place]. I don't have access to these [...] a target-like rash shortly before presenting to [facility] in 2016 with headaches and [...] negative. Numbness and vi (more content not included)...NormalOur [facility] Of [facility] Hospital Sisi 64-27-8786MKXNDwiwiemdr (NCCAP) SANNA RENDON ([id number]) 1985 F Date Time Provider Department 10/28/24 [...] is scheduled for appt with high school english teacher, 11/19/24, Leyla [facility]. She denies further [...] 05/28/2024 Encounter Status:Closed by RACHAEL JOHNSON on 11/05/24NormalCMagruder Hospitalprehensive metabolic 2000 panelon 18-19-7427Cdlmntw [Mass/Vol]4.4 g/dLNormal3.9-4.9CProvidence Hospital on above:Order Comment: Specimen Type: BLOOD SPECIMENOrdering Facility: [facility] Address:[address] [place], [place] [address]Performed By: #### 79252-1 ####[facility] LABCLIA [id number] [place], [place] [address]HTS [Catalytic activity/Vol]55 U/CQajrjm04-415LcddghsegTriHealth Good Samaritan Hospital on above:Order Comment: Specimen Type: BLOOD SPECIMENOrdering Facility: [facility] Address:[address] [place], [place] [address]Performed By: #### 18486-6 ####[facility] LABCLIA [id number] [place], [place] [address]XGH [Catalytic activity/Vol]18 U/LNormal7-38[facility] on above:Order Comment: Specimen Type: BLOOD SPECIMENOrdering Facility: [facility] Address:[address] [place], [place] [address]Performed By: #### 80641- 8 ####[facility] LABCLIA [id number] [facility] [place], [place] [address]Nrhkc gap [Moles/Vol]12 mmol/LNormal8-15[facility] on above:Order Comment: Specimen Type: BLOOD SPECIMENOrdering Facility: [facility] Address:[address] [place], [place] [address]Performed By: #### 16677-4 ####[facility] LABCLIA [id number] [facility] [place], [place] [address]SZD [Catalytic activity/Vol]13 U/UUqvmtu99-48FpjcfyknrTriHealth Good Samaritan Hospital on above:Order Comment: Specimen Type: BLOOD SPECIMENOrdering Facility: [facility] Address:[address] [place], [place] [address]Performed By: #### 90193-3 ####[facility] LABCLIA [id number] [place] [address] Bilirubin [Mass/Vol]0.2 mg/dLNormal0.2-1.3CProvidence Hospital on above:Order Comment: Specimen Type: BLOOD SPECIMENOrdering Facility: [facility] Address:[address] [place], [place] [address]Performed By: #### 20329-0 ####[facility] LABCLIA [id number] [facility], [place] [address]Bghhvxa [Mass/Vol]9.9 mg/dLNormal8.5-10.2CProvidence Hospital on above:Order Comment: Specimen Type: BLOOD SPECIMENOrdering Facility: [facility] Address:[address] [place], [place] [address]Performed By: #### 82930-9 ####[facility] LABIA [id number] [place], [place] [address]Slnwnden [Moles/Vol]99 mmol/CYerhdb77-077CtdjqozsoTriHealth Good Samaritan Hospital on above:Order Comment: Specimen Type: BLOOD SPECIMENOrdering Facility: [facility] Address:[address] [place], [place] [address]Performed By: #### 63984- 8 ####[facility] LABCLIA [id number] [place], [place] [address]CY5 [Moles/Vol]22 mmol/RYajaez81-51GedgsagldTriHealth Good Samaritan Hospital on above:Order Comment: Specimen Type: BLOOD SPECIMENOrdering Facility: [facility] Address:[address] [place], [place] [address]Performed By: #### 14250-3 ####[facility] LABCLIA [id number] [place], [place] [address]Zrzaukuozc [Mass/Vol]0.60 mg/dL Normal0.58-0.96[facility] on above:Order Comment: Specimen Type: BLOOD SPECIMENOrdering Facility: [facility] Address:[address] [place], [place] [address]Performed By: #### 05662-9 ####[facility] LABCLIA [id number] [place], [place] [address]Osrgseccul and Glomerular filtration rate.predicted panel (S/P/Bld)117 mL/min/1.73m???Normal>=60[facility] on above:Order Comment: Specimen Type: BLOOD SPECIMENOrdering Facility: [facility] Address:[address] [place], [place] [address]Result Comment: Estimated Glomerular Filtration Rate (eGFR) is [...] not accurately reflect actual GFR.Performed By: #### 26125-9 ####[facility] LABCLIA [id number] [place], [place] [address]Ytpalct [Mass/Vol]101 mg/zRSmtf85-63XwtmxdatcTriHealth Good Samaritan Hospital on above:Order Comment: Specimen Type: BLOOD SPECIMENOrdering Facility: [facility] Address:[address] [place] [address]Ayrudw Comment: The [place] Diabetes Association (ADA) provides guidance for cutoff [...] Standards of Medical Care in Diabetes 2016, [place] Diabetes Association. Diabetes Care. 2016.39(Suppl 1).Performed By: #### 61060-6 ####[facility] LABCLIA [id number] [place], [place] [address]Xpmgcsqym [Moles/Vol]3.5 mmol/LLow3.7-5.1CProvidence Hospital on above:Order Comment: Specimen Type: BLOOD SPECIMENOrdering Facility: [facility] Address:[address] [place], [place] [address]Performed By: #### 40650-1 ####[facility] LABCLIA [id number] [place], [place] [address]Jhyogss [Mass/Vol]7.6 g/dL Normal6.3-8.0[facility] on above:Order Comment: Specimen Type: BLOOD SPECIMENOrdering Facility: [facility] Address:[address] [place] [address]Kaypvwrek By: #### 24109-9 ####[facility] LABCLIA [id number] [place] [address] Sodium [Moles/Vol]133 mmol/IQqy502-379OpmitlqgrTriHealth Good Samaritan Hospital on above:Order Comment: Specimen Type: BLOOD SPECIMENOrdering Facility: [facility] Address:[address] [place], [place] [address]Performed By: #### 49778-4 ####[facility] LABCLIA [id number] [place], [place] [address]Pvqe nitrogen [Mass/Vol]7 mg/dLNormal7-21Our Lady Of Mercy HospitalComment on above:Order Comment: Specimen Type: BLOOD SPECIMENOrdering Facility: [facility] Address:[address] [place], [place] [address]Performed By: #### 98440-5 ####[facility] LABCLIA [id number] [place], [place] [address]Hlzbfsid SerPl-mCncon 67-29-5496Uyammjfl [Mass/Vol]99.6 ng/wIJhkxcc79.7-205.1CPremier Health Miami Valley HospitalComchildren's hospital of [place] on above:Order Comment: Specimen Type: BLOOD SPECIMENOrdering Facility: [facility] Address:[address] [place], [place] [address]Performed By: #### 2276-4, 76985-3, 9, 3016-3 ####[facility] LABCLIA [id number] [place] [address] [place] OF AMERICAIron and Iron binding capacity panelon 26-64-8904Jvia [Mass/Vol]72 ug/mBYgzxvn52-460FsbqofcfqOur Lady Of Mercy Hospital Comment on above:Order Comment: Specimen Type: BLOOD SPECIMENOrdering Facility: [facility] Address:[address] [place] [address] Performed By: #### 2276-4, 42118-9, 9, 3016-3 ####[facility] LABCLIA [id number] [place] [address] [place] AMERICAIron binding capacity [Mass/Vol]399 ug/nEKzsz694-507QabkpuxgvOur Lady Of Mercy HospitalComchildren's hospital [facility] [place] on above:Order Comment: Specimen Type: BLOOD SPECIMENOrdering Facility: [facility] Address:[address] [place], [place] [address]Performed By: #### 2276-4, 01845-9, 2131-12, 6-3 ####[facility] LABCLIA [id number] [address] [address] [place] [facility] HOSPITALIron/TIBC [Molar ratio]18.0 % Lehlgk57.0-57.0[facility] on above:Order Comment: Specimen Type: BLOOD SPECIMENOrdering Facility: [facility] Address:[address] [place] [address] [place] [id number] By: #### 2276-4, 51201-4, 2131-12, 6-3 ####[facility] LABIA [id number] [place] [address] [facility] HOSPITALTSKaiser Permanente [facility] 10-28-2024 Thyroid Stimulating (3Rd Generation) Hormone/ Tsh1.25[facility] SerPl-aCncon 47-14-9440TXX Qn1.250 m[IU]/LNormal 0.270-4.200[facility] on above:Order Comment: Specimen Type: BLOOD SPECIMENOrdering Facility: [facility] Address:[address] [place] [address] [place], [place] [address]Result Comment: If the patient is , TSH reference range varies by gestational period: First Trimester (weeks 9-12): 0.180-2.990 mIU/L Second Trimester: 0.110-3.980 mIU/L Third Trimester: 0.480-4.710 mIU/L Danny Varela et al. A Practical Approach for the Verifications and Determination of Site- and Trimester-Specific Reference Intervals for Thyroid Function tests in . Thyroid, 2019:29:3:412-420.Saeed E, et al. 2017 Guidelines of the [place] Thyroid Association for the Diagnosis and Management of Thyroid Disease during and the . Thyroid, 2017:27:3:315-389. Performed By: #### 2276-4, 79767-4, 9, 6-3 ####[facility] LABCLIA [id number] [address] [address] [facility]IAL HOSPITALVit B12 SerPl-mCncon 04-71-9385Vninrpsry (Vitamin B12) [Mass/Vol]483 pg/uUFpnrfy845-5456FdbzcbosoProvidence Hospital on above: Order Comment: Specimen Type: BLOOD SPECIMENOrdering Facility: [facility] Address:[address] [place], [place] [address]Performed By: #### 2276- 4, 25968-0, 2132-9, 3016-3 ####[facility] LABCLIA [id number] [facility] [id number] [place], [place] [address] [facility] OF AMERICACNPNon 52-12-5241WUMNHorhqujat (HEMASA) SANNA RENDON ([id number]) 1985 F Date Time Provider Department 10/24/24 [...] Date Reviewed: 08/26/2024 Reviewed by: Katherine Negrete APRN.CLINICAL LAW PROFESSOR - Fully Assessed Reason for Visit: Lab [...] Encounter Status:Closed by KAUR DUNHAM on 10/24/24[facility] OB TRANSVAGINALon 21-76-7678CY OB TRANSVAGINALEXAM: US OB TRANSVAGINAL HISTORY: Viability, [...] II, MD, PHD at 21-Oct-2024 08:31:21 AM [facility] TeleradiologyNormalNot AvailableComment on above:Order Comment: US OB VIABILITY PLEASE PERFORM TRANSVAGINAL ULTRASOUND IF INDICATED No LMP recorded.ALL CBC WITH AUTO DIFFon 17-70-9767YBQBXHGBH ABSOLUTE TYQY9CDVT HealthcareBasophils/100 WBC (Bld)0.2 %0.2 - 2.0 %NOMS [...] HealthcareMCHC (RBC) [Mass/Vol] 34.6 g/dL29.9 - 35.2 g/dLNOID HealthcareMCV (RBC) [Entitic vol]86.2 fL81.0 - 99.0 fLNOMS HealthcareMONOCYTES ABSOLUTE AUTO0.6NOMS HealthcareMonocytes/100 WBC (Bld)7.2 %1.7 - 12.0 %NOMS HealthcareNEUTROPHILS ABSOLUTE AUTO5.6NOSaint Alexius Hospital Neutrophils/100 WBC (Bld)62.8 %43.0 - 75.0 %NOMS HealthcarePlatelet mean volume (Bld) [Entitic vol]10.1 fL9.5 - 13.5 fLNOSaint Alexius HospitalTB EO #0NOSaint Alexius Hospital TBH TYA828LRQWMissouri Baptist Medical Center RBC4.42NOSaint Alexius HospitalTB WBC8.9NOSaint [facility]ius Hospital CLINISYNCDrug Screen, Urineon 30-81-8677Umdqdatalsq/MethamphetamineNegative [facility] Centeredica Health SystemBarbituratesNegativeSt Johnsbury HospitalMedica Health System BenzodiazepinesNegativeProMedica Health SystemCocaine MetaboliteNegative Pro[facility]ica Health SystemEcstasyNegativeSt Johnsbury HospitalMedica Health SystemMethadoneNegative [facility] Centeredica Health SystemOpiatesNegativeSt Johnsbury HospitalMedica Health SystemOxycodoneNegative [facility] Centeredica Health SystemPhencyclidineNegativeSt Johnsbury HospitalMedica Health SystemThc Marijuana, UrineNegativeCleveland Clinic Euclid Hospitalca Health SystemHBV surface Ag IA Qlon 10-06-2024 Hepatitis B Surface AntigenNegativeMer[facility] Springfield [facility] SystemHIV 1+2 Ab+HIV1 p24 Ag IA Qlon 92-86-4061OGK 1&2 AB/AGNegativeMercy Health Springfield Regional [facility] Center SystemHemoglobin A1con 04-82-4717DoS7l (Bld) [Mass fraction]5.9 %4.0 - 6.0 %[facility] SystemNo Panel Informationon 70-43-6257HUUH HealthcareTSHon 08-07-6418Rytgqvt Stimulating (3Rd Generation) Hormone/ Tsh1.131[facility] SystemType and screenon 69-56-0277Uln/Rh(D)NegativeProTrihealth Bethesda Butler HospitalHCG ( test) Ql (U)on 34-41-3522Gvwoclwgxjyjff and review of laboratory resultsAbnormalShriners Hospitals for Children Preg Test, UrPositiveNegativeSaint [facility] Center HealthcareUrinalysis macro (dipstick) panel (U)on 77-62-5045Bdfwxlsaa, UANegativeNegative - 4(70) +++ mg/dL NOMS HealthcareBlood, [...] - 12 mg/dLNOMS HealthcareNOMS HealthcareUS OB TRANSVAGINALon 10-05-8424[place]Tr[place] [address] Ultrasound Report Signed Patient: SANNA RENDON MR#: [id number] : 1985 Acct:[id number] Age/Sex: 38 / F ADM Date: 09/11/24 Loc: US Attending Dr: Wilton Herrmann D.O. Ordering Physician: Wilton Herrmann D.O. Date of Service: 09/11/24 Procedure(s): US OB transvaginal Accession Number(s): [id number] cc: Wilton Herrmann D.O.; PENELOPE CASAS [place] [id number] Patient Name: SANNA RENDON MRN: [id number] date: 1985 Sex: F Assigned Patient Location: US Current Patient Location: US Accession/Order Number: [id number] Exam Date: 09/11/2024 11:34 Report Date: 09/11/2024 [...] Montano M.D. 09/11/2024 11:36 AM Dictation Location: [place] [address] Electronically authenticated by: [id number] Y Date: 09/11/2024 11:36 Dictated By: Prudence Montano M.D. Signed By: 09/11/24 1138 DD/ 1136 TD/TT: Clinical Informatics Director:TBHRadiology, Radiologist, MD - 09/11/2024 [place] [address] Ultrasound Report Signed Patient: SANNA RENDON MR#: [id number] : 1985 Acct:[id number] Age/Sex: 38 / F ADM Date: 09/11/24 Loc: US Attending Dr: Wilton Herrmann D.O. Ordering Physician: Wilton Herrmann D.O. Date of Service: 09/11/24 Procedure(s): US OB transvaginal Accession Number(s): [id number] cc: Wilton Herrmann D.O.; PENELOPE CASAS [address] [address] Patient Name: SANNA RENDON MRN: [id number] date: 1985 Sex: F Assigned Patient Location: US Current Patient Location: US Accession/Order Number: [id number] Exam Date: 09/11/2024 11:34 Report Date: 09/11/2024 [...] Montano M.D. 09/11/2024 11:36 AM Dictation Location: [place] [address] Electronically authenticated by: [id number] Y Date: 09/11/2024 11:36 Dictated By: Prudence Montano M.D. Signed By: 09/11/24 1138 DD/ 1136 TD/TT: Clinical Informatics Director: SHILOH HealthcareRadiology Study observation (narrative)[facility] OB TRANSVAGINALOrdered By: Radiologist Radiology on [id number] Work Phone: bhcg Quanton 01-82-1394LUG.beta subunit My68599 m[IU]/mLHigh1-3[facility] HospitalComment on above:Result Comment: 'F NON < 1 - 3' ' 0.2 - 1 WEEK = 5 TO 50' ' 1 - 2 WEEKS = 50 - 500' ' 2 - 3 WEEKS = 100 - 5000' ' 3 - 4 WEEKS = 500 - 09536' ' 4 - 5 WEEKS = 1000 - 06863' ' 5 - 6 WEEKS = 88379 - 487170' ' 6 - 8 WEEKS = 16514 - 916161' ' 8 - 12 WEEKS = 63786 - 293292'Performed By: #### [id number] #### [facility] [address] [place], [place] [address]Vwnafhcgof Visit Summaryon 57-88-0516Bsnfphuiap Visit Summary Ambulatory Visit Summary SANNA RENDON :1985 Visit Date:09/07/2024 Ambulatory Visit Instructions Your Diagnosis Viral URI with cough Cough Your Care Team Attending Physician - Romulo Chiu PA-C Primary Care Physician - Penelope CASAS DO, FAAFP This Is Your Medications List Contact prescribing physician if questions or concerns enoxaparin (Lovenox 40 mg/0.4 mL Injection) ergocalciferol (Vitamin D) fluticasone nasal (Flonase 0.05 mg/inh [place]) levothyroxine (levothyroxine 25 mcg (0.025 mg) Tab) [...] EDT With: Penelope CASAS DO, FAAFP Where: [facility] [address], [place] [address]- Medications What How Much When Instructions Unchanged enoxaparin (Lovenox 40 mg/ 0.4 mL Injection) 40 Milligram Subcutaneous Every 24 hours Contact prescribing physician if questions or concerns Unchanged ergocalciferol (Vitamin D) 2,000 International unit By Mouth Every week Contact prescribing physician if questions or concerns Unchanged fluticasone nasal (Flonase 0.05 mg/ inh [place]) 2 Sprays Nasal Inhalation Every day each [...] for choosing us for your care. [facility] Medicine Office/Clinic Noteon 27-97-8429Obmnjc Medicine Office/Clinic NoteWhittier Rehabilitation Hospital Medicine Office/Clinic Note Chief Complaint cough, [...] created with voice recognition software. Occasional wrong-word or???jcdul-p-hfyy??? substitutions may have occurred due to the [...] days ago on Sunday. Has been using fcgz-iez-bzyvvrm cough drops and Flonase for her allergies. [...] duration. Discussed antibiotics un (more content not included)...[facility] HospitalComment on above:Result Comment: Electronically Signed By: Aram QUINTEROS, Romulo Lynn\.br\Date and Time Signed: 09/07/2509:46 EDTCNPNon 10-48-3060ULXWLobpclzlg (HEMASA) SANNA RENDON ([id number]) 1985 F Date Time Provider Department 09/02/24 [...] Date Reviewed: 08/26/2024 Reviewed by: Katherine Negrete APRN.CLINICAL LAW PROFESSOR - Fully Assessed Reason for Visit: Patient [...] 05/28/2024 Encounter Status:Closed by RACHAEL JOHNSON on 09/03/24[facility] Quanton 68-06-9769ZPC.beta subunit Qn558 m[IU]/mLHigh1-3[facility] HospitalComment on above:Result Comment: 'F NON < 1 - 3' ' 0.2 - 1 WEEK = 5 TO 50' ' 1 - 2 WEEKS = 50 - 500' ' 2 - 3 WEEKS = 100 - 5000' ' 3 - 4 WEEKS = 500 - 11980' ' 4 - 5 WEEKS = 1000 - 65717' ' 5 - 6 WEEKS = 31132 - 739058' ' 6 - 8 WEEKS = 37765 - 632325' ' 8 - 12 WEEKS = 07600 - 518543'Performed By: #### [id number] #### [facility] [address], [place] [address]HmGC Quanton 37-77-2245ZID.beta subunit Qn188 m[IU]/mLHigh1-3 [facility] CenterComment on above:Result Comment: 'F NON < 1 - 3' ' 0.2 - 1 WEEK = 5 TO 50' ' 1 - 2 WEEKS = 50 - 500' ' 2 - 3 WEEKS = 100 - 5000' ' 3 - 4 WEEKS = 500 - 07816' ' 4 - 5 WEEKS = 1000 - 81020' ' 5 - 6 WEEKS = 84429 - 755311' ' 6 - 8 WEEKS = 67478 - 871440' ' 8 - 12 WEEKS = 00150 - 734352'Performed By: #### [id number] #### [facility] [address], [place] [address]NQCQci 28-20-2168BKIVJkbgsrqzy (HEMASA) SANNA RENDON ([id number]) 1985 F Date Time Provider Department 08/26/24 [...] Date Reviewed: 08/26/2024 Reviewed by: Katherine Negrete APRN.CLINICAL LAW PROFESSOR - Fully Assessed Reason for Visit: Lab Orders [1688] Primary Visit Diagnosis:Antiphospholipid antibody positive [R76.0] Other Visit Diagnoses: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] Malaise and fatigue [R53.81, R53.83] Vitamin D deficiency [E55.9] Order(s):COMPLETE BLOOD COUNT AND DIFFERENTIAL [SQCBCDIF] Order #: [id number] FUTURE COMPREHENSIVE METABOLIC PANEL [SQCMP] Order #: [id number] FUTURE THYROID STIMULATING HORMONE [SQTSH] Order #: [id number] FUTURE IRON AND TIBC [SQIRON] Order #: [id number] FUTURE FERRITIN [SQFERR] Order #: [id number] FUTURE VITAMIN D 25 HYDROXY [SQVITD] Order #: [id number] FUTURE VITAMIN B12 [SQB12] Order #: [id number] FUTURE Prescriptions as of 08/26/2024 - enoxaparin [...] 05/28/2024 Encounter Status:Closed by KATHERINE NEGRETE on 08/26/24[facility] Quanton 81-11-0417ZKR.beta subunit Qn83 m[IU]/mLHigh1-3FHighland District HospitalComment on above:Result Comment: 'F NON < 1 - 3' ' 0.2 - 1 WEEK = 5 TO 50' ' 1 - 2 WEEKS = 50 - 500' ' 2 - 3 WEEKS = 100 - 5000' ' 3 - 4 WEEKS = 500 - 42631' ' 4 - 5 WEEKS = 1000 - 84839' ' 5 - 6 WEEKS = 51951 - 937529' ' 6 - 8 WEEKS = 10250 - 232224' ' 8 - 12 WEEKS = 69169 - 363865'Performed By: #### [id number] #### [facility] [address], [place] [address]WuPS Quanton 98-06-1119WWQ.beta subunit Qn22 m[IU]/mLHigh1-3 [facility] CenterComment on above:Result Comment: 'F NON < 1 - 3' ' 0.2 - 1 WEEK = 5 TO 50' ' 1 - 2 WEEKS = 50 - 500' ' 2 - 3 WEEKS = 100 - 5000' ' 3 - 4 WEEKS = 500 - 70377' ' 4 - 5 WEEKS = 1000 - 73761' ' 5 - 6 WEEKS = 74685 - 198438' ' 6 - 8 WEEKS = 53497 - 914556' ' 8 - 12 WEEKS = 58076 - 563218'Performed By: #### [id number] #### [facility] [address], [place] [address]IKVEWWUBAZsosjxm By: SYSTEM SYSTEM on 18-96-2492ETO.beta subunit Qn22 m[IU]/mLHigh1 - 3 mIU/mLRemisol ChemComment on above:Result Comment: 'F NON < 1 - 3' ' 0.2 - 1 WEEK = 5 TO 50' ' 1 - 2 WEEKS = 50 - 500' ' 2 - 3 WEEKS = 100 - 5000' ' 3 - 4 WEEKS = 500 - 99377' ' 4 - 5 WEEKS = 1000 - 73987' ' 5 - 6 WEEKS = 66497 - 260069' ' 6 - 8 WEEKS = 17962 - 381532' ' 8 - 12 WEEKS = 77598 - 542010'TSH Qn1.86 m[IU]/LNormal0.34 - 5.60 mcIU/mLRemisol ChemTSHon 91-23-5607NNC Qn1.86 m[IU]/LNormal0.34-5.60[facility] CenterComment on above:Performed By: #### [id number] #### [facility] [address], [place] [address]RCV ( test) Ql (U)on 70-99-5681Mjpdqavequefqz and review of laboratory resultsNoGeisinger Community Medical CenterPreg Test, UrNegativeNegative [facility].Interpretation:on 75-34-8976SLW Ab IA QlComment Invalid Interpretation Kindred HealthcareComment on above:Result Comment: Not infected with HCV unless early or acute infection is suspected (which may be delayed in an immunocompromised individual), or other evidence exists to indicate HCV infection. Performed at: [address] [id number] PhD Jd Garciaformed By: #### [id number] #### [facility] [address], [place] [address]DHF Antibody RFX to Quant PCRon 95-03-8528DSW Ab IA Ql Non-ReactiveInvalid Interpretation CodeNon ReactiveUniversity Hospitals Beachwood Medical Center Comment on above:Result Comment: Performed at: [address] [id number] PhD Jd Garciaformed By: #### [id number] #### [facility] [address], [place] [address]LRU Screen 4th Generation wRfxon 22-22-2326TPM 1+2 Ab+HIV1 p24 Ag IA QlNon-ReactiveInvalid Interpretation CodeNon ReactiveUniversity Hospitals Beachwood Medical CenterComment on above:Result Comment: HIV-1/HIV-2 antibodies and HIV-1 p24 antigen were NOT detected. There is no laboratory evidence of HIV infection. HIV Negative Performed at: [address] [id number] PhD Jd Garciaformed By: #### [id number] #### [facility] [address], [place] [address]Tdk Be Agon 17-60-8365VVI e Ag IA QlNegativeInvalid Interpretation CodeNegativeUniversity Hospitals Beachwood Medical CenterComment on above:Result Comment: Performed at: [address] [id number] PhD Jd Garciaformed By: #### [id number] #### [facility] [address], [place] [address]Doy Bs Agon 10-39-1303PHF surface Ag IA QlNegativeInvalid Interpretation CodeNegativeUniversity Hospitals Beachwood Medical CenterComment on above:Result Comment: Performed at: [address] [id number] PhD Jd Garciaformed By: #### [id number] #### [facility] [address], [place] [address]HSALVBTLGEuijrmr By: SYSTEM SYSTEM on 55-84-3983Bqvjetp [Mass/Vol]5.0 g/dLNormal3.3 - 5.0 gm/dLRemisol ChemAlbumin/Globulin [Mass ratio] 1.6 {ratio}Normal1.1 - 2.2Remisol ChemALP [Catalytic activity/Vol]49 [iU]/d Hbxgku46 - 98 Int._Unit/LRemisol ChemALT No additional P-5'-P [Catalytic activity/Vol]18 [iU]/dNormal6 - 46 Int._Unit/LRemisol ChemAnion gap [Moles/Vol] 13 mmol/LNormal6 - 16 mEq/LRemisol ChemAST [Catalytic activity/Vol]15 [iU]/d Normal5 - 43 Int._Unit/LRemisol ChemBilirubin [Mass/Vol]0.4 mg/dLNormal0.0 - 1.1 mg/dLRemisol ChemCalcium [Mass/Vol]10.0 mg/dLNormal8.9 - 11.1 mg/dLRemisol Chem Chloride [Moles/Vol]100 mmol/YPkp871 - 111 mmol/LRemisol ChemCO2 [Moles/Vol]25 mmol/ZKimlwd55 - 31 mmol/LRemisol ChemCreatinine [Mass/Vol]0.7 mg/dLNormal0.5 - 1.3 mg/dLRemisol OxgqwVJI486 mL/min/1.73 f4Gxpkzv>=59mL/min/1.73 t0Xfwdglt Chem Globulin (S) [Mass/Vol]3.1 g/dLNormal1.4 - 4.0 gm/dLRemisol ChemGlucose [Mass/Vol]82 mg/lMYqmwii42 - 199 mg/dLRemisol ChemPotassium [Moles/Vol]3.8 mmol/LNormal3.5 - 5.3 mmol/LRemisol ChemProtein [Mass/Vol]8.1 g/dLHigh6.0 - 7.8 gm/dLRemisol ChemSodium [Moles/Vol]134 mmol/QMcw519 - 145 mmol/LRemisol ChemUrea nitrogen [Mass/Vol]7 mg/dLNormal5 - 21 mg/dLRemisol ChemUrea nitrogen/Creatinine [Mass ratio]10 mg/btFgfsyx99 - 20Remisol ChemCMPon 76-58-3616Jkatrmc [Mass/Vol]5.0 g/dLNormal3.3-5.0[facility] Comment on above:Performed By: #### [id number] #### [facility] [address], [place] [address]Pdvtvsl/Globulin (S) [Mass conc ratio]1.4Pfauon5.1-2.2FHighland District HospitalComment on above:Performed By: #### [id number] #### [facility] [address] [place] [address]UQH [Catalytic activity/Vol]49 Int._Unit/OQiqywe18-79CeqtibUniversity Hospitals Beachwood Medical CenterComment on above:Performed By: #### [id number] #### [facility] [address], [place] [address]EPO No additional P-5'-P [Catalytic activity/Vol]18 Int._Unit/L Normal6-46[facility] Medical CenterComment on above:Performed By: #### [id number] #### [facility] [address] [place] [address]Upklc gap [Moles/Vol]13 mmol/LNormal6-16[facility] CenterComment on above:Performed By: #### [id number] #### [facility] [address] [place] [address] 41157KHW [Catalytic activity/Vol]15 Int._Unit/LNormal5-43[facility] CenterComment on above:Performed By: #### [id number] #### [facility] [address] [place] [address] 030[address]Uxhvjomnf [Mass/Vol]0.4 mg/dLNormal0.0-1.1FHighland District HospitalComment on above:Performed By: #### [id number] #### [facility] [address] [place] [address] 81038Dqzthmg [Mass/Vol]10.0 mg/dLNormal8.9-11.1FHighland District HospitalComment on above:Performed By: #### [id number] #### [facility] [address] [place] [address] 18479Isvtxydb [Moles/Vol]100 mmol/ZSpw366-303LzrlreUniversity Hospitals Beachwood Medical CenterComment on above:Performed By: #### [id number] #### [facility] [address] [place] [address] 35461YV5 [Moles/Vol]25 mmol/UFbhmub83-41LfdqynUniversity Hospitals Beachwood Medical Center Comment on above:Performed By: #### [id number] #### [facility] [address], [place] [address]Xjgculnxlu [Mass/Vol]0.7 mg/dLNormal0.5-1.3FHighland District HospitalComment on above:Performed By: #### [id number] #### [facility] [address], [place] [address]Bittharu (S) [Mass/Vol]3.1 g/dLNormal1.4-4.0[facility] Medical CenterComment on above:Performed By: #### [id number] #### [facility] [address], [place] [address]Udtgwaw [Mass/Vol]82 mg/vJHxlcqb76-928CgjhwmUniversity Hospitals Beachwood Medical CenterComment on above:Performed By: #### [id number] #### [facility] [address], [place] [address]Ziangqghp [Moles/Vol]3.8 mmol/LNormal3.5-5.3FHighland District HospitalComment on above:Performed By: #### [id number] #### [facility] [address], [place] [address]Angcuqw [Mass/Vol]8.1 g/dLHigh6.0-7.8[facility] Medical CenterComment on above:Performed By: #### [id number] #### [facility] [address], [place] [address]Pgytum [Moles/Vol]134 mmol/AMzb844-309OriulbUniversity Hospitals Beachwood Medical CenterComment on above:Performed By: #### [id number] #### [facility] [address], [place] [address]Boln nitrogen [Mass/Vol]7 mg/dLNormal5-21[facility] Medical CenterComment on above:Performed By: #### [id number] #### [facility] [address], [place] [address]Revz nitrogen/Creatinine [Mass ratio]10 No TutcxQwfcoj77-33 [facility] CenterComment on above:Performed By: #### [id number] #### [facility] [address] [place], [place] [address]pMMZuz 31-23-7332cLJD553 mL/min/1.73 f6Pcsyeh>=59Fishamadou [facility] HospitalComment on above:Performed By: #### [id number] #### [facility] [address] [place], [place] [address]Lfomnj Medicine Office/Clinic Noteon 52-83-6961Brtpeu Medicine Office/Clinic NoteFami Medicine Office/Clinic Note HPI [...] RESENDEZ FAAFP, Penelope Tony, FAM, PED [address], [place] [address]- Additional Instructions: Patient Education Bradycardia, [...] exam Historical Abdominal pain (more content not included)...[facility] Comment on above:Result Comment: Electronically Signed By: Inez Banegas\.br\Date and Time Signed: 07/08/24 08:54 EDTAmbulatory Visit Summaryon 32-73-9095Cpldvqvhsh Visit SummaryAmbulatory Visit Summary SANNA RENDON :1985 [...] mg Tab) fluticasone nasal (Flonase 0.05 mg/inh [place]) levothyroxine (levothyroxine 25 mcg (0.025 mg) Tab) [...] EDT With: Penelope CASAS DO, FAAFP Where: [facility] [address] [place] [address]- You Need to Schedule the Following Appointments Follow Up with Penelope CASAS DO, FAAFP, FAM, PED When: Where: [address] [place] [address]- Medications What How Much When Why Instructions [...] Unchanged fluticasone nasal (Flonase 0.05 mg/ inh [place]) 2 Sprays Nasal Inhalation Every day each [...] you for choosing us for your care. [facility] North HospitalBhG Quanton 94-52-2723ZMP.beta subunit Qn1 m[IU]/mLNormal1-3[facility] HospitalComment on above:Result Comment: 'F NON < 1 - 3' ' 0.2 - 1 WEEK = 5 TO 50' ' 1 - 2 WEEKS = 50 - 500' ' 2 - 3 WEEKS = 100 - 5000' ' 3 - 4 WEEKS = 500 - 93895' ' 4 - 5 WEEKS = 1000 - 69459' ' 5 - 6 WEEKS = 68504 - 301261' ' 6 - 8 WEEKS = 23530 - 809120' ' 8 - 12 WEEKS = 90127 - 261613'Performed By: #### [id number] #### [facility] [address], [place] [address]RVTBZ 2 Mutationson 79-96-3672GENJW InterpretationSee Note [facility] CenterComment on above:Result Comment: Indication for testing: Determine genetic contribution to hyperhomocysteinemia. 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 The [employer] [employer] Practice Guidelines indicate [...] a contributing factor to hyperhomocysteinemia. Variants Tested: c.665C>T(p.Fyv856Gvn) and c.1286A>C(p.Tub788Tvr). (legacy names C677T and V8671A, respectively). Clinical Sensitivity: Undefined; hyperhomocysteinemia is caused [...] developed and its performance characteristics determined by [facility]. It has not been cleared or approved by the [place] Food and Drug Administration. This test was performed in a CLIA certified laboratory and is intended for clinical purposes. Counseling and informed consent are recommended for genetic testing. Consent forms are available online. Performed By: [facility] [address] [place] [address] Head Pumper: Yayo Moncada MD, PhD CLIA Number: [id number] Mutation: [id number]atte Valley Medical CenterMTHFR Mutation: F108DMlhwvhdhIvvnliPfcnlPlatte Valley Medical Center MTHFR PCR SpecimenWhole BloodNormCraig HospitalAnti-nuclear Ab (NASEEM) Reflexon 56-35-5265Xykg-Nuclear Ab (NASEEM), IgG by ELISANot detectedNormal None DetEating Recovery Center a Behavioral HospitalComment on above:Result Comment: If suspicion of connective tissue disease is strong and NASEEM EIA is negative, consider testing for NASEEM by IFA ([id number]). No antibodies to Anti-Nuclear Antibodies (NASEEM) detected. The Extractable Nuclear Antigen Antibodies (WILD LIFE PHOTOGRAPHER, Christianson, SSA 52, SSA 60, Scleroderma, Brianna-1 [...] dsDNA, histones, SS-A (Ro), SS-B (La), Christianson, Christianson/WILD LIFE PHOTOGRAPHER, Scl-70, Brianna-1, centromeric proteins, other antigens extracted from the HEp-2 cell nucleus. NASEEM ALEX assays have been reported to have lower sensitivities than NASEEM IFA for systemic autoimmune rheumatic diseases (SARD). Negative results do not necessarily rule out SARD. Performed By: [facility] [address] [place] [address] Head Pumper: Yayo Moncada MD, PhD CLIA Number: [id number]-1 (Histidyl-tRNA Synthetase) Ab, IgGon 46-03-5662Ua-1 (Histidyl-tRNA Synthetase) Ab, IgG0 AU/mLNormal0-40[facility] Comment on above:Result Comment: INTERPRETIVE INFORMATION: Brianna-1 Antibody, IgG 29 AU/mL or less.........Negative 30-40 AU/mL..............Equivocal 41 AU/mL or greater......Positive Presence of Brianna-1 (antihistidyl transfer RNA [t-RNA] synthetase) antibody is associated with polymyositis and may also be seen in patients with dermatomyositis. Brianna-1 antibody is associated with pulmonary involvement (interstitial lung disease), Raynaud phenomenon, arthritis, and boilermaker mechanic's hands (implicated in antisynthetase syndrome). Performed By: [facility] [address] [place], [place] [id number] Head Pumper: Yayo Moncada MD, PhD CLIA Number: [id number] and SSB Abs, IgGon 95-63-6926DIF 52 (Ro) (KELLEN) Ab, IgG1 AU/mLNormal0-40[facility] SystemComment on above:Result Comment: INTERPRETIVE INFORMATION: SSA-52 (Ro52) [...] interstitial lung disease.SSB (La) (KELLEN) Ab, IgG0 AU/mLNormal0-40[facility] Comment on above:Result Comment: INTERPRETIVE INFORMATION: SSB [...] (PSS) also have this antibody. Performed By: [facility] [address] [id number] Head Pumper: Yayo Moncada MD, PhD CLIA Number: [id number] Antibodies, IgG/IgMon 26-83-9125Hhgmtiuqpwi Ab IgG95 GPLCritically high<=14[facility] SystemComment on above: Result Comment: INTERPRETIVE INFORMATION: Anti-Cardiolipin [...] other criteria phospholipid antibody tests. Performed by [facility], [address] [place] [address] www.[employer], Zhang Bledsoe MD, Lab. Director IA Number: [id number] Ab IgM<10Normal<=12[facility] SystemComment on above:Result Comment: INTERPRETIVE INFORMATION: Anti- Cardiolipin [...] other criteria phospholipid antibody tests. Performed by [facility], [address] [place] [address] www.[employer], Zhang Bledsoe MD, Lab. Director CLIA Number: [id number] (Smooth Muscle) Antibody, IgAon 1985N-Actin Ab, IgA1.8 UnitsNormal0.0-24.9[facility] SystemComment on above: Result Comment: INTERPRETIVE INFORMATION: F-Actin (Smooth Muscle)Antibody, IgA 20.0 Units or less.....Negative 20.1 - 24.9 Units......Equivocal 25.0 Units or greater..Positive The presence of IgA antibodies against F-Actin in patients having positive serologic markers for celiac disease, such as antiendomysial, anti-transglutaminase, and/or anti-gliadin peptide IgA, indicates the presence of intestinal villus atrophy. Positive results should be confirmed with biopsy. Performed By: [facility] [address] [place] [address] Head Pumper: Yayo Moncada MD, PhD CLIA Number: [id number] Ab, IgG by ELISAon 83-39-2040yzNNE Ab, IgG by ALEX 4 IUNormal0-24[facility] SystemComment on above:Result Comment: INTERPRETIVE INFORMATION: Double-Stranded DNA (dsDNA) Ab IgG ALEX 24 IU or less........Negative 25-30 IU.............Borderline Positive 30-60 IU.............Low Positive 60-200 IU............Positive 201 IU or greater....Strong Positive Positivity for anti-double stranded DNA (anti-dsDNA) IgG antibody is a diagnostic criterion of systemic lupus erythematosus (SLE). Specimens are initially screened by enzyme-linked immunosorbent assay (ALEX). If ordered as reflex ([id number]), positive ALEX results (>24 IU) will be [...] recommendations for testing may be found at [email or web address]. Performed by [facility], [address] [place] [address],[place] [address] www.[employer], Zhang Bledsoe MD, Lab. Director CLIA Number: [id number] Proteinon 02-85-9451ZCP [Mass/Vol]mg/LNormal 0.0-5.0[facility] SystemComment on above:Performed By: #### CRP #### [facility] [address] [place] [address] Wyqqrhurudtrh Rateon 30-34-4752Vftbodtmhpblv Rate18 mmNormal0-20 [facility] SystemComment on above:Result Comment: ESR Units mm/Hr Performed By: #### ESR #### [facility] [address] [place] [address] Xsiorz Medicine Office/Clinic Noteon 36-79-3963Ywegjx Medicine Office/Clinic NoteFaworcester city hospital Medicine Office/Clinic Note Chief Complaint C/O: [...] bedtime), # 90 tab(s), Refills(s) 4, Pharmacy: [facility] 1985, 168, cm, 06/30/24 8:36:00 EST, Height/Length Dosing, 97.2, kg, 06/30/24 8:36:00 EST, Weight Dosing Total time spent preparing the chart, conducting of the encounter with the patient and family and time spent documenting, reviewing, and ordering tests was 25 minutes. Follow-up With When Contact Information Penelope CASAS DO, FAAFP, CHRIS, PED In 2 months [address], [place] [address]- (419 (more content not included)...[facility] Comment on above:Result Comment: Electronically Signed By: Penelope CASAS DO, FAAFP\.br\Date and Time Signed: 06/30/24 09:24 ESTRECURRENT VAGINITIS (HTRX)on 26-10-3006TQZJOHRHN ERICIQZ1VCPM HealthcareATOPOBIUM VAGINAENot detectedNOMS HealthcareBVAB 2,3 (BACTERIAL VAGINOSIS ASSOCIATED BACTERIA 2, 3); MOBILUNCUS [id number] HealthcareBVAB 2,3 (BACTERIAL VAGINOSIS ASSOCIATED BACTERIA 2, 3); MOBILUNCUS SPPNot detectedNOMS HealthcareCANDIDA ALBICANS, PARAPSILOSIS, [id number] HealthcareCANDIDA ALBICANS, PARAPSILOSIS, TROPICALISNot detected NOMS HealthcareCANDIDA [id number] HealthcareCANDIDA GLABRATANot detectedNOMS HealthcareCANDIDA [id number] HealthcareCANDIDA KRUSEINot detectedNOMS HealthcareCHLAMYDIA [id number] HealthcareCHLAMYDIA TRACHOMATISNot detected NOMS HealthcareGARDNERELLA [id number] HealthcareGARDNERELLA VAGINALISNot detectedNOMS HealthcareMEGASPHAERA (TYPES 1, 2)0NOMS HealthcareMEGASPHAERA (TYPES 1, 2)Not detectedNOMS HealthcareMYCOPLASMA FIUUOTWPOT9GAWA Healthcare MYCOPLASMA GENITALIUMNot detectedNOMS HealthcareNEISSERIA BGAUCUKOSIG5TQVN HealthcareNEISSERIA GONORRHOEAENot detectedNOMS HealthcareTRICHOMONAS VAGINALIS0 NOMS HealthcareTRICHOMONAS VAGINALISNot detectedNOMS HealthcareNOMS Healthcare Urinalysis macro (dipstick) panel (U)on 75-50-2964Swvamffms, UANegativeNegative - 4(70) +++ mg/dLNOMS HealthcareBlood, UANegativeNegative [...] - 12 mg/dLNOMS HealthcareNOMS HealthcareAmbulatory Visit Summaryon 70-70-5143Bcqscmvvzj Visit SummaryAmbulatory Visit Summary SANNA RENDON :1985 [...] (Vitamin D) fluticasone nasal (Flonase 0.05 mg/inh [place]) levothyroxine (levothyroxine 25 mcg (0.025 mg) Tab) [...] EDT With: Penelope CASAS DO, FAAFP Where: [facility] Care [address] [place] [address] [place] [address]- Medications What How Much When Why Instructions New azithromycin (Zithromax 250 mg Tab) 1 Packets By Mouth As Directed Sinusitis Duration: 5 Days Refills: 1 as directed on package labeling Pickup at [facility] 1985 New fluconazole (Diflucan 150 mg Tab) 1 Tablets By Mouth Every 7 days Yeast infection Refills: 1 Pickup at [facility] 1985 Unchanged enoxaparin (Lovenox 40 mg/ 0.4 mL Injection) 40 Milligram Subcutaneous Every 24 hours Contact prescribing physician if questions or concerns Unchanged ergocalciferol (Vitamin D) 2,000 International unit By Mouth Every week Contact prescribing physician if questions or concerns Unchanged fluticasone nasal (Flonase 0.05 mg/ inh [place]) 2 Sprays Nasal Inhalation Every day each [...] physician if questions or concerns Pharmacy Information [facility] 1985: [address] [place] [id number] [phone] Allergies Milk Products (Illness) ciprofloxacin (Numbness and [...] for choosing us for your care. [facility] Medicine Office/Clinic Noteon 83-01-2034Deswgm Medicine Office/Clinic NoteWh[facility]ier [facility] Office/Clinic Note Chief Complaint Sinus [...] day(s), # 6 tab(s), Refills(s) 1, Pharmacy: [facility] 1985, 168, cm, 06/09/24 14:03:00 EST, Height/Length Dosing, 98.4, kg, 06/19/24 16:19:00 EST, Weight Dosing Yeast infection (B37.9: Candidiasis, unspecified) Ordered: fluconazole, 150 mg = 1 tab(s), Oral, q7day, # 4 tab(s), Refills(s) 1, Pharmacy: [facility] 1985, 168, cm, 06/09/24 [...] Oral, q7day, 1 refills Flonase 0.05 mg/inh [place], 2 spray(s), Nasal, Daily, 11 refills levothyroxine [...] Refuses influe (more content not included)...NormalUniversity Hospitals Beachwood Medical CenterComment on above:Result Comment: Electronically Signed By: MANDI BRYANT\.br\Date and Time Signed: 06/19/24 16:37 ESTCBC w/ Auto Diffon 06-12-2024 Basophils/100 WBC (Bld)0.3 %Normal0.0-2.0University Hospitals Beachwood Medical CenterComment on above:Performed By: #### [id number] #### [facility] Laboratory [address], [place] [address]Zhgrctxos/Leukocytes Auto (Bld) [Pure # fraction]0.0 E9/LNormal 0.0-0.2FHighland District HospitalComment on above:Performed By: #### [id number] #### [facility] [address], [place] [address]Ketyyzbicfy (Bld) [#/Vol]0.0 E9/LNormal0.0-0.5FHighland District HospitalComment on above:Performed By: #### [id number] #### [facility] [address], [place] [address]Ukybjnhgmud/100 WBC (Bld)0.3 %Normal0.0-8.0[facility] Beachwood Medical CenterComment on above:Performed By: #### [id number] #### [facility] [address], [place] [address]Ylpzcyppctt distribution width (RBC) [Ratio]14.0 %Normal 10.9-14.2FHighland District HospitalComment on above:Performed By: #### [id number] #### [facility] [address] [place] [address]Ohcjayvhue (Bld) [Volume fraction]40.9 %Zoidse82.0-46.0[facility] Hospit[facility] Beachwood Medical CenterComment on above:Performed By: #### [id number] #### [facility] Laboratory [address] [place] [address]Aegdruivdd (Bld) [Mass/Vol]13.9 g/xZVkmrvd80.0-16.0[facility] Beach[facility] Medical CenterComment on above:Performed By: #### [id number] #### [facility] [address] [place] [address]Ytqkwonocwm (Bld) [#/Vol]2.8 E9/LNormal1.0-4.0[facility] Beachwood Medical CenterComment on above:Performed By: #### [id number] #### [facility] [address] [place] [address]Wheuoapvdqj/100 WBC (Bld)24.6 %Odopye90.0-50.0[facility] Beachwood Medical CenterComment on above:Performed By: #### [id number] #### [facility] [address] [place] [address] 207[address]GGY (RBC) [Entitic mass]30.7 aeGxdbrd77.0-34.0[facility] Beachwood Medical CenterComment on above:Performed By: #### [id number] #### [facility] [address] [place] [address]PAFT (RBC) [Mass/Vol]33.9 g/iBUfwlnl18.4-36.0[facility] Medical CenterComment on above:Performed By: #### [id number] #### [facility] [address] [place] [address]HDI (RBC) [Entitic vol]90.6 jIOdvizh81.0-100.0[facility] Beachwood Medical CenterComment on above:Performed By: #### [id number] #### [facility] [address] [place] [address]Uzwuqoyph (Bld) [#/Vol]0.6 E9/LNormal0.2-1.0[facility] Beachwood Medical CenterComment on above:Performed By: #### [id number] #### [facility] [address] [place] [address]Hyhgpwhqldk (Bld) [#/Vol]8.0 E9/LHigh2.0-7.5FHighland District HospitalComment on above:Performed By: #### [id number] #### [facility] [address] [place] [address] 31750Lypyenhamvv/100 WBC (Bld)69.6 %Lvraiy68.0-75.0[facility] Beach[facility] Medical CenterComment on above:Performed By: #### [id number] #### [facility] [address] [place] [address]Qsbplull869.0 E9/RYphmog710.0-500.0[facility] Comment on above:Performed By: #### [id number] #### [facility] [address] [place] [address]Ikpzdgvo mean volume (Bld) [Entitic vol]8.2 fLNormal6.4-10.8 [facility] Medical CenterComment on above:Performed By: #### [id number] #### [facility] [address] [place] [address] 84[address]FUN (Bld) [#/Vol]4.5 E12/LNormal4.3-5.9[facility] Beach[facility] Medical CenterComment on above:Performed By: #### [id number] #### [facility] Laboratory [address], [place] [address]KXC corrected for nucl RBC Auto (Bld) [#/Vol]11.5 E9/LHigh 4.0-11.0[facility] Beachwood Medical CenterComment on above:Performed By: #### [id number] #### [facility] Laboratory [address], [place] [address]GIKXKAUPKRLdtvczs By: SYSTEM SYSTEM on 46-16-2036Zcvbkvrfi/100 WBC (Bld)0.3 %Normal0.0 - 2.0 %Remisol HemeBasophils/Leukocytes Auto (Bld) [Pure # fraction]0.0 E9/LNormal0.0 - 0.2 E9/LRemisol HemeEosinophils (Bld) [#/Vol]0.0 E9/LNormal0.0 - 0.5 E9/LRemisol HemeEosinophils/100 WBC (Bld)0.3 %Normal0.0 - 8.0 %Remisol HemeErythrocyte distribution width (RBC) [Ratio]14.0 %Xelqdp97.9 - 14.2 %Remisol HemeHematocrit (Bld) [Volume fraction]40.9 %Tgzjnr87.0 - 46.0 % Remisol HemeHemoglobin (Bld) [Mass/Vol]13.9 g/pYOexmps27.0 - 16.0 gm/dLRemisol HemeLymphocytes (Bld) [#/Vol]2.8 E9/LNormal1.0 - 4.0 E9/LRemisol Heme Lymphocytes/100 WBC (Bld)24.6 %Cgaehh11.0 - 50.0 %Remisol HemeMCH (RBC) [Entitic mass]30.7 cdLqupsq84.0 - 34.0 pgRemisol HemeMCHC (RBC) [Mass/Vol]33.9 g/dL Iwcdrt46.4 - 36.0 gm/dLRemisol HemeMCV (RBC) [Entitic vol]90.6 xBYohnup97.0 - 100.0 fLRemisol HemeMonocytes (Bld) [#/Vol]0.6 E9/LNormal0.2 - 1.0 E9/LRemisol HemeMonocytes/100 WBC (Bld)5.2 %Normal4.0 - 14.0 %Remisol HemeNeutrophils (Bld) [#/Vol]8.0 E9/LHigh2.0 - 7.5 E9/LRemisol HemeNeutrophils/100 WBC (Bld)69.6 % Mdxhnd58.0 - 75.0 %Remisol MdtyPeymgstx138.0 E9/LSetjwc815.0 - 500.0 E9/LRemisol HemePlatelet mean volume (Bld) [Entitic vol]8.2 fLNormal6.4 - 10.8 fLRemisol HemeRBC (Bld) [#/Vol]4.5 E12/LNormal4.3 - 5.9 E12/LRemisol HemeWBC corrected for nucl RBC Auto (Bld) [#/Vol]11.5 E9/LHigh4.0 - 11.0 E9/LRemisol HemeAmbulatory Visit Summaryon 15-50-7833Jfftuxjsuv Visit SummaryAmbulatory Visit Summary SANNA RENDON :1985 Visit Date:06/09/2024 Ambulatory Visit Instructions Your Diagnosis Antiphospholipid antibody with hypercoagulable state H/O: CVA Gestational diabetes BMI 35.0-35.9,adult Morbid obesity Your Care Team Attending Physician - Penelope CASAS DO, FAAFP Primary Care Physician - Penelope CASAS DO, FAAFP This Is Your Medications List fluticasone nasal (Flonase 0.05 mg/inh [place]) Contact prescribing physician if questions or concerns [...] EDT With: Penelope CASAS DO, FAAFP Where: [facility] [address], [facility] [place] [address]- Medications What How Much When Instructions New fluticasone nasal (Flonase 0.05 mg/ inh [place]) 2 Sprays Nasal Inhalation Every day Refills: 11 each nostril Pickup at [facility]/pharmacy #[id number] Unchanged enoxaparin (Lovenox 40 mg/ 0.4 [...] physician if questions or concerns Pharmacy Information [facility]/pharmacy #[id number]: [address] [place], [place] [id number] [phone] Allergies Milk Products (Illness) ciprofloxacin (Numbness and [...] for choosing us for your care. NormalFisher Medstar Union Memorial HospitalBhCG Quanton 20-70-7226NOW.beta subunit Qn2 m[IU]/mLNormal1-3Fisher [facility] HospitalComment on above:Result Comment: 'F NON < 1 - 3' ' 0.2 - 1 WEEK = 5 TO 50' ' 1 - 2 WEEKS = 50 - 500' ' 2 - 3 WEEKS = 100 - 5000' ' 3 - 4 WEEKS = 500 - 01047' ' 4 - 5 WEEKS = 1000 - 68280' ' 5 - 6 WEEKS = 79685 - 137877' ' 6 - 8 WEEKS = 74944 - 361994' ' 8 - 12 WEEKS = 69697 - 326883'Performed By: #### [id number] #### [facility] Laboratory [address], [place] [address]WPPGRZZDYOxgjgxk By: SYSTEM SYSTEM on 10-52-8120UXX Qn1.97 m[IU]/LNormal0.34 - 5.60 mcIU/mLRemisol ChemFamily Medicine Office/Clinic Noteon 35-69-5090Worvbs Medicine Office/Clinic NoteFamily Medicine Office/Clinic Note Chief [...] from inside ear, not outside Moved from [place] Review of Systems PHQ Score Initial Depression [...] antibody with hypercoagulable state (D68.61: Antiphospholipid syndrome) [facility] Department of hematology/oncology following and treating with Lovenox, please see their consultation 05/28/2024. Treats with Lovenox 40 mg subcu every 24 hours 2. H/O: CVA (Z86.79: Personal history of other diseases of the circulatory system) Please see #1. 3. Gestational diabetes (O24.419: Gestational diabetes mellitus in , unspecified control) [facility], [facility] following. Metformin XR 500 mg tabs [...] PED In 6 months [address] [place] [address]- [phone] (more content not included)...[facility] North HospitalComment on above:Result Comment: Electronically Signed By: Penelope CASAS DO, FAAFP\.br\Date and Time Signed: 06/09/24 14:24 ESTTSHon 22-68-3449CJU Qn1.97 m[IU]/LNormal0.34-5.60[facility] Beach[facility] Medical CenterComment on above:Performed By: #### [id number] #### [facility] [address] [place], [place] [address]WqQD Quanton 31-43-8760SDG.beta subunit Qn6 m[IU]/mLHigh1-3 [facility] Medical CenterComment on above:Result Comment: 'F NON < 1 - 3' ' 0.2 - 1 WEEK = 5 TO 50' ' 1 - 2 WEEKS = 50 - 500' ' 2 - 3 WEEKS = 100 - 5000' ' 3 - 4 WEEKS = 500 - 14042' ' 4 - 5 WEEKS = 1000 - 88513' ' 5 - 6 WEEKS = 12908 - 973961' ' 6 - 8 WEEKS = 28065 - 309053' ' 8 - 12 WEEKS = 59403 - 262547'Performed By: #### [id number] #### [facility] [address] [place], [place] [address]([place])D3 [facility] 478393-czljudueyaxegc D3 [Mass/Vol] 27.8 ng/mLLow31.0-80.0[facility] HospitalComment on above:Order Comment: Specimen Type: BLOOD SPECIMENOrdering Facility: [facility] Address:[address] [place], [place] [address]Mdwpmc Comment: Classification of 25 [place] Vitamin D status: Deficiency/Insufficiency: < or = 30 ng/ml. Sufficiency/Optimal Levels: 31-80 ng/mL Toxicity: > 100 ng/mL. Test performed by chemiluminescent immunoassay.Performed By: #### 1989-3 ####[facility] LABCLIA [id number] [facility]ITALK [id number] Auto Differential panel (Bld)on 17-43-0960Twhmndvpi (Bld) [#/Vol]0.03 10*3/uLNormal<0.11CProvidence Hospital on above:Order Comment: Specimen Type: BLOOD SPECIMENOrdering Facility: [facility] Address:[address] [place], [place] [address]Performed By: #### 31505-1 ####[facility] LABCLIA [id number] [place], [place] [address]Hddpurpmz/100 WBC (Bld)0.4 % NormalTriHealth Good Samaritan Hospital on above:Order Comment: Specimen Type: BLOOD SPECIMENOrdering Facility: [facility] Address:[address] [place], [place] [address]Performed By: #### 59502-2 ####[facility] LABCLIA [id number] [place] [address] Differential cell count method Nom (Bld)AutoNormalCPremier Health Miami Valley Hospital Comment on above:Order Comment: Specimen Type: BLOOD SPECIMENOrdering Facility: [facility] Address:[address] [place] [address] Performed By: #### 63955-3 ####[facility] LABIA [id number] [place], [place] [address]Sexjffwdtez (Bld) [#/Vol]0.08 10*3/uLNormal<0.46[facility] on above:Order Comment: Specimen Type: BLOOD SPECIMENOrdering Facility: [facility] Address:[address] [place], [place] [address]Performed By: #### 10458-1 ####[facility] LABCLIA [id number] [place], [place] [address]Qgcswejdbaz/100 WBC (Bld)0.9 %NormalTriHealth Good Samaritan Hospital on above:Order Comment: Specimen Type: BLOOD SPECIMENOrdering Facility: [facility] Address:[address] [place], [place] [address]Performed By: #### 29786-4 ####[facility] LABIA [id number] [place], [place] [address]Ocxvjoietcq distribution width (RBC) [Ratio]13.8 %Oqwplo12.5-15.0[facility] on above: Order Comment: Specimen Type: BLOOD SPECIMENOrdering Facility: [facility] Address:[address] [place], [place] [address]Performed By: #### 08912- 8 ####[facility] LABIA [id number] [place], [place] [address]Vseestoyfa (Bld) [Volume fraction]34.0 %Low36.0-46.0 [facility] on above:Order Comment: Specimen Type: BLOOD SPECIMENOrdering Facility: [facility] Address:[address] [place], [place] [address]Performed By: #### 91097-9 ####[facility] LABIA [id number] [place], [place] [address]Azyxkatfty (Bld) [Mass/Vol]11.5 g/hOUaavts35.5-15.5CProvidence Hospital on above: Order Comment: Specimen Type: BLOOD SPECIMENOrdering Facility: [facility] Address:[address] [place], [place] [address]Performed By: #### 24496- 8 ####[facility] LABIA [id number] [place], [place] [address]Rkdzkpdd granulocytes (Bld) [#/Vol]0.03 10*3/uLNormal <0.10[facility] on above:Order Comment: Specimen Type: BLOOD SPECIMENOrdering Facility: [facility] Address:[address] [place], [place] [address]Performed By: #### 75517-2 ####[facility] LABCLIA [id number] [place], [place] [address]Xqylfovo granulocytes/100 WBC (Bld)0.4 %NormalTriHealth Good Samaritan Hospital on above: Order Comment: Specimen Type: BLOOD SPECIMENOrdering Facility: [facility] Address:[address] [place], [place] [address]Performed By: #### 38430- 8 ####[facility] LABCLIA [id number] [place], [place] [address]Ygnbmtwaypm (Bld) [#/Vol]2.86 10*3/uLNormal1.00-4.00 [facility] on above:Order Comment: Specimen Type: BLOOD SPECIMENOrdering Facility: [facility] Address:[address] [place], [place] [address]Performed By: #### 28444-7 ####[facility] LABCLIA [id number] [place], [place] [address]Dpndlnzefbp/100 WBC (Bld)33.4 %NormalTriHealth Good Samaritan Hospital on above:Order Comment: Specimen Type: BLOOD SPECIMENOrdering Facility: [facility] Address:[address] [place], [place] [address]Performed By: #### 38307-5 ####[facility] LABCLIA [id number] [place], [place] [address]XJE (RBC) [Entitic mass]30.8 ojKjyirv53.0-34.0[facility] on above:Order Comment: Specimen Type: BLOOD SPECIMENOrdering Facility: [facility] Address:[address] [place], [place] [address]Performed By: #### 56892-7 ####[facility] LABCLIA [id number] [place], [place] [address]KGYS (RBC) [Mass/Vol]33.8 g/vJFzsfrr94.5-36.0[facility] on above: Order Comment: Specimen Type: BLOOD SPECIMENOrdering Facility: [facility] Address:[address] [place], [place] [address]Performed By: #### 02912- 8 ####[facility] LABCLIA [id number] [place], [place] [address]JXR (RBC) [Entitic vol]91.2 tQXksgkk39.0-100.0[facility] on above:Order Comment: Specimen Type: BLOOD SPECIMENOrdering Facility: [facility] Address:[address] [place], [place] [address]Performed By: #### 43574-4 ####[facility] LABIA [id number] [place], [place] [address]Cblzbvtim (Bld) [#/Vol]0.66 10*3/uLNormal<0.87[facility] on above:Order Comment: Specimen Type: BLOOD SPECIMENOrdering Facility: [facility] Address:[address] [place], [place] [address]Performed By: #### 00316- 8 ####[facility] LABIA [id number] [place], [place] [address]Knuokgkjv/100 WBC (Bld)7.7 %NormalTriHealth Good Samaritan Hospital on above:Order Comment: Specimen Type: BLOOD SPECIMENOrdering Facility: [facility] Address:[address] [place], [place] [address]Performed By: #### 11311-3 ####[facility] LABIA [id number] [place], [place] [address]Pdyumksoztu (Bld) [#/Vol]4.90 10*3/uLNormal1.45-7.50[facility] on above:Order Comment: Specimen Type: BLOOD SPECIMENOrdering Facility: [facility] Address:[address] [place], [place] [address]Performed By: #### 53158-5 ####[facility] LABCLIA [id number] [place], [place] [address]Yfzpnqzhkmg/100 WBC (Bld)57.2 %NormalTriHealth Good Samaritan Hospital on above:Order Comment: Specimen Type: BLOOD SPECIMENOrdering Facility: [facility] Address:[address] [place], [place] [address]Performed By: #### 06245-6 ####[facility] LABCLIA [id number] [place], [place] [address]Cjvuehzil RBC (Bld) [#/Vol] 10*3/uLNormal<0.01[facility] on above:Order Comment: Specimen Type: BLOOD SPECIMENOrdering Facility: [facility] Address:[address] [place], [place] [address]Performed By: #### 76467-0 ####[facility] LABCLIA [id number] [place], [place] [address]Bnsttpxcw RBC/100 WBC (Bld) [Ratio]0.0 /100 WBCNormal [facility] on above:Order Comment: Specimen Type: BLOOD SPECIMENOrdering Facility: [facility] Address:[address] [place], [place] [address]Performed By: #### 32925-5 ####[facility] LABCLIA [id number] [place], [place] [address]Lpuorqlm mean volume (Bld) [Entitic vol]9.6 fLNormal9.0-12.7CProvidence Hospital on above:Order Comment: Specimen Type: BLOOD SPECIMENOrdering Facility: [facility] Address:[address] [place] [address] Performed By: #### 33335-6 ####[facility] LABCLIA [id number] [place], [place] [address]Lygolqybj (Bld) [#/Vol]345 10*3/pLAcbgom683-508BocxrxmyiTriHealth Good Samaritan Hospital on above:Order Comment: Specimen Type: BLOOD SPECIMENOrdering Facility: [facility] Address:[address] [place], [place] [address]Performed By: #### 17922-0 ####[facility] LABIA [id number] [place], [place] [address]FEZ (Bld) [#/Vol]3.73 10*6/uLLow3.90-5.20[facility] on above:Order Comment: Specimen Type: BLOOD SPECIMENOrdering Facility: [facility] Address:[address] [place], [place] [address]Performed By: #### 88332-3 ####[facility] LABIA [id number] [place], [place] [address]LYR (Bld) [#/Vol]8.56 10*3/uL Normal3.70-11.00[facility] on above:Order Comment: Specimen Type: BLOOD SPECIMENOrdering Facility: [facility] Address:[address] [place], [place] [address]Performed By: #### 39317-2 ####[facility] LABIA [id number] [place], [place] [address]YOZYBGdc 44-62-7844URRITDHjjfz (SP) Office (HEMASA) SANNA RENDON ([id number]) 1985 F Date Time Provider Department 05/28/24 1:00 PM ABHYANKAR, KRISTOFER HEMASA During your visit today, we recorded the following information about you: Temperature Pulse Respiration Blood pressure 97.6 degrees 72/minute 16/minute 123/83 Weight Height 98.5 kg 1.677 m Kristofer Calix MD 05/29/2024 9:13 AM Signed NAME: Sanna Rendon CLINIC NO.: [id number] DATE OF SERVICE: May 28, 2024 (Levon) [...] later in 2018. These were found in [place], [place]. I don't have access to these [...] a target-like rash shortly before presenting to [facility] in 2016 with headaches and [...] soon. When she had a stroke in [place], she had symptoms up to a month [...] having trouble losing weight. (more content not included)...NormalOur Lady Of Mercy HospitalCNPNon 05-28-2024 CNPNTelephone (NCCAP) SANNA RENDON ([id number]) 1985 F Date Time Provider Department 05/28/24 [...] 05/28/2024 Encounter Status:Closed by TAYLOR ESCUDERO on 05/28/24NormalClevelDosher Memorial HospitalComprehensive metabolic 2000 panelon 16-43-2271Ulcjzcq [Mass/Vol]4.4 g/dLNormal3.9-4.9ClevelDosher Memorial HospitalComment on above:Order Comment: Specimen Type: BLOOD SPECIMENOrdering Facility: [facility] Address:[address] [place] [address] [place] [id number] By: #### 14185-1 ####[facility] LABCLIA [id number] [place] [address]MQO [Catalytic activity/Vol]59 U/SXwjrdd86-766FuuroazvmTriHealth Good Samaritan Hospital on above:Order Comment: Specimen Type: BLOOD SPECIMENOrdering Facility: [facility] Address:[address] [place], [place] [address]Performed By: #### 52686-5 ####[facility] LABCLIA [id number] [place], [place] [address]KFX [Catalytic activity/Vol]12 U/LNormal7-38[facility] on above:Order Comment: Specimen Type: BLOOD SPECIMENOrdering Facility: [facility] Address:[address] [place], [place] [address]Performed By: #### 46192- 8 ####[facility] LABCLIA [id number] [place] [facility]UMONTPH[facility] CENTERTEETEEUM[place], [place] [address]Zktpj gap [Moles/Vol]10 mmol/LNormal8-15[facility] on above:Order Comment: Specimen Type: BLOOD SPECIMENOrdering Facility: [facility] Address:[address] [place], [place] [address]Performed By: #### 64254-7 ####[facility] LABCLIA [id number] [place], [place] [address]TUN [Catalytic activity/Vol]11 U/JSof27-41TjpipzsevTriHealth Good Samaritan Hospital on above:Order Comment: Specimen Type: BLOOD SPECIMENOrdering Facility: [facility] Address:[address] [place], [place] [address]Performed By: #### 55158-5 ####[facility] LABCLIA [id number] [place] [address] Bilirubin [Mass/Vol]0.2 mg/dLNormal0.2-1.3CProvidence Hospital on above:Order Comment: Specimen Type: BLOOD SPECIMENOrdering Facility: [facility] Address:[address] [place], [place] [address]Performed By: #### 02666-5 ####[facility] LABCLIA [id number] [place], [place] [address]Pwbqfxh [Mass/Vol]9.7 mg/dLNormal8.5-10.2CProvidence Hospital on above:Order Comment: Specimen Type: BLOOD SPECIMENOrdering Facility: [facility] Address:[address] [place], [place] [address]Performed By: #### 46875-9 ####[facility] LABCLIA [id number] [place], [place] [address]Uinbqjzk [Moles/Vol]99 mmol/EQdjdcf64-043VfozfmigbTriHealth [facility]aritan [facility] on above:Order Comment: Specimen Type: BLOOD SPECIMENOrdering Facility: [facility] Address:[address] [place], [place] [address]Performed By: #### 69789- 8 ####[facility] LABCLIA [id number] [place], [place] [address]XZ7 [Moles/Vol]25 mmol/QNgdwuq78-55NjvlacrfoTriHealth Good Samaritan Hospital on above:Order Comment: Specimen Type: BLOOD SPECIMENOrdering Facility: [facility] Address:[address] [place], [place] [address]Performed By: #### 49853-2 ####[facility] LABCLIA [id number] [place], [place] [address]Ennehybbmx [Mass/Vol]0.71 mg/dL Normal0.58-0.96[facility] on above:Order Comment: Specimen Type: BLOOD SPECIMENOrdering Facility: [facility] Address:[address] [place], [place] [address]Performed By: #### 75843-2 ####[facility] LABCLIA [id number] [place], [place] [address]Yjpjziwwpo and Glomerular filtration rate.predicted panel (S/P/Bld)112 mL/min/1.73m???Normal>=60[facility] on above:Order Comment: Specimen Type: BLOOD SPECIMENOrdering Facility: [facility] Address:[address] [place] [address]Nfvnjh Comment: Estimated Glomerular Filtration Rate (eGFR) is [...] not accurately reflect actual GFR.Performed By: #### 84752-0 ####[facility] LABCLIA [id number] [place], [place] [address]Wlwukjk [Mass/Vol]79 mg/bIQvjowh42-93AdcrlwhmcTriHealth Good Samaritan Hospital on above:Order Comment: Specimen Type: BLOOD SPECIMENOrdering Facility: [facility] Address:[address] [place] [address]Hqgmrz Comment: The [place] Diabetes Association (ADA) provides guidance for cutoff [...] Standards of Medical Care in Diabetes 2016, [place] Diabetes Association. Diabetes Care. 2016.39(Suppl 1).Performed By: #### 64999-2 ####[facility] LABCLIA [id number] [place], [place] [address]Hhfbykloo [Moles/Vol]4.0 mmol/LNormal3.7-5.1CProvidence Hospital on above:Order Comment: Specimen Type: BLOOD SPECIMENOrdering Facility: [facility] Address:[address] [place], [place] [address]Performed By: #### 86485-7 ####[facility] LABCLIA [id number] [place], [place] [address]Yhmyoyf [Mass/Vol]7.1 g/dLNormal6.3-8.0[facility] on above:Order Comment: Specimen Type: BLOOD SPECIMENOrdering Facility: [facility] Address:[address] [place], [place] [address]Performed By: #### 94799- 8 ####[facility] LABCLIA [id number] [place], [place] [address]Tpivau [Moles/Vol]134 mmol/CIsw324-921PplxpgezpTriHealth Good Samaritan Hospital on above:Order Comment: Specimen Type: BLOOD SPECIMENOrdering Facility: [facility] Address:[address] [place], [place] [address]Performed By: #### 77568-1 ####[facility] LABCLIA [id number] [place], [place] [address]Tpdu nitrogen [Mass/Vol]8 mg/dL Normal7-21[facility] on above:Order Comment: Specimen Type: BLOOD SPECIMENOrdering Facility: [facility] Address:[address] [place], [place] [address]Performed By: #### 68999-6 ####[facility] LABCLIA [id number] [place] [address] Ferritin SerPl-mCncon 98-84-5596Erotowkg [Mass/Vol]73.8 ng/oFEavpry16.7-205.1 [facility] on above:Order Comment: Specimen Type: BLOOD SPECIMENOrdering Facility: [facility] Address:[address] [place], [place] [address]Performed By: #### 13348-4, 2276-4, 3016-3 ####[facility] LABCLIA [id number] [place] [address] [place] AMERICAFolate SerPl-mCncon 57-36-3056Cbmqmm [Mass/Vol] ng/mLNormal>4.7CProvidence Hospital on above:Order Comment: Specimen Type: BLOOD SPECIMENOrdering Facility: [facility] Address:[address] [place], [place] [address]Result Comment: A result of > 20 ng/mL is not necessarily indicative of a pathologic or treatable condition: it reflects a limitation of the test methodology. Assay reference range: 4.8 to 24.2 ng/mL. Suitable for detection of folate deficiency. Reference: Folate III (Folate III) [package insert V 1.0 Cuban]. [facility], [place], [place]: February 2015.Performed By: #### 2132-9, 2284-8 ####[facility] LABCLIA [id number] [place] [address] [place] AMERICAIron and Iron binding capacity panelon 05-28-2024 Iron [Mass/Vol]68 ug/nJGcsksx84-192DsttgflywTriHealth Good Samaritan Hospital on above: Order Comment: Specimen Type: BLOOD SPECIMENOrdering Facility: [facility] Address:[address] [place], [place] [address]Performed By: #### 77418- 8, 2276-4, 3016-3 ####[facility] LABCLIA [id number] [place] [address] [place] AMERICAIron binding capacity [Mass/Vol]367 ug/qROltsaq682-864QlkvykqmjTriHealth Good [facility]aritan Hospital on above: Order Comment: Specimen Type: BLOOD SPECIMENOrdering Facility: [facility] Address:[address] [place], [place] [address]Performed By: #### 90887- 8, 6-4, 3016-3 ####[facility] LABCLIA [id number] [place] [address] [place] AMERICAIron/TIBC [Molar ratio]18.5 %Wgflpw85.0-57.0[facility] on above:Order Comment: Specimen Type: BLOOD SPECIMENOrdering Facility: [facility] Address:[address] [place], [place] [address]Performed By: #### 39749- 8, 6-4, 3016-3 ####[facility] LABCLIA [id number] [place] [address] [place] [facility] CENTERTS SerPl-aCncon 40-88-1669SMO Qn2.940 m[IU]/LNormal0.270-4.200[facility] on above:Order Comment: Specimen Type: BLOOD SPECIMENOrdering Facility: [facility] Address:[address] [place], [place] [address]Result Comment: If the patient is , TSH reference range varies by gestational period: First Trimester (weeks 9-12): 0.180-2.990 mIU/L Second Trimester: 0.110-3.980 mIU/L Third Trimester: 0.480-4.710 mIU/L Danny Varela et al. A Practical Approach for the Verifications and Determination of Site- and Trimester-Specific Reference Intervals for Thyroid Function tests in . Thyroid, 2019:29:3:412-420.Saeed E, et al. 2017 Guidelines of the [place] Thyroid Association for the Diagnosis and Management of Thyroid Disease during and the . Thyroid, 2017:27:3:315-389. Performed By: #### 18654-4, 4, 3015-3 ####[facility] LABCLIA [id number] [place] [id number] [place] OF [facility] MEDICAL CENTERVit B12 SerPl-mCncon 86-75-8666Pkpeccmga (Vitamin B12) [Mass/Vol]487 pg/oPNlrjaw598-8001UghhldpgmProvidence Hospital on above:Order Comment: Specimen Type: BLOOD SPECIMENOrdering Facility: [facility] Address:[address] [place], [place] [address]Performed By: #### 2132-9, 2284-8 ####[facility] LABCLIA [id number] [facility] [id number] [place] [address] [place] [facility] MEDICAL CENTERBhCG Quanton 53-44-6127MAF.beta subunit Qn101 m[IU]/mLHigh1-3Fisher [facility] HospitalComment on above:Result Comment: 'F NON < 1 - 3' ' 0.2 - 1 WEEK = 5 TO 50' ' 1 - 2 WEEKS = 50 - 500' ' 2 - 3 WEEKS = 100 - 5000' ' 3 - 4 WEEKS = 500 - 02283' ' 4 - 5 WEEKS = 1000 - 21776' ' 5 - 6 WEEKS = 74049 - 879645' ' 6 - 8 WEEKS = 35384 - 640239' ' 8 - 12 WEEKS = 91488 - 428867'Performed By: #### [id number] #### [facility] [address], [place] [address]SWLHKY V LEIDEN MUTATIONon 46-42-6586GYV FACTOR V LEIDEN MUTATIONComment.[facility] HealthcareComment on above:Result: c.1601G>A (p.Bme800Csc) - Not Detected This result is not associated with an increased risk for venous thromboembolism. See Additional Clinical Information and Comments. Additional Clinical Information: Venous thromboembolism is a multifactorial disease influenced by genetic, environmental, and circumstantial risk factors. The c.1601G>A (p. Dqh991Gzn) variant in the F5 gene, commonly referred [...] c.*97G>A variant and Factor V Leiden (PMID: 48863554). Additional risk factors include but are not [...] health care providers to discuss results at [phone] (5208). Test Details: Variant Analyzed: c.1601G>A (p. Mbc083Ylc), referred to as Factor V Leiden Methods/Limitations: [...] developed and its performance characteristics determined by [employer]. It has not been cleared or approved by the Food and Drug Administration. References: Jomar Tian, Loren BLANDON, Thiago R, Solo WW, Jose JH; ACMG Professional Practice and Guidelines Committee. Addendum: [place] [employer] consensus statement on factor V Leiden mutation testing. Nisha Med. 2020Jul 02. doi: 10.1038/j64208-202-87601-t. PMID: 05106283. Naina POWERS. Factor V Leiden Thrombophilia. 1998September 10 (Updated 2017May 03). In: Emeterio MP, Radha HH, Clayton RA, et al., editors. Cassie(R) (Internet). [place] ([place]): [facility], [place]; 6023-4265. Available from: https://www.ncbi.nlm.nih.gov/books/BPR3128/ Hudson Tian, Loren BLANDON, Trent X, Margarito B, Jo-Ann EB, Lena P, Rhiannon CS; [employer]G Laboratory Precinct Captain Committee. Venous thromboembolism laboratory testing (factor V Leiden and factor II c.*97G>A), 2018 update: a technical standard of the [place] [employer] and Genomics (ACMG). Nisha Med. 2018 Mar;20(12):0619-5230. doi: 10.1038/b40348-190-8262-m. Epub 2017Feb 01. PMID: 75865354. [facility] REVIEWED BYComment.NOMS HealthcareComment on above:Technical Component performed at [facility] Professional Component performed by: [employer] [facility] CenterMaximum Balance Foundation Rosa Isela Lee, Ph.D., [facility] Director, Molecular Genetics [address] [facility] Performed at: - [facility] [address], [place], [place] [address] Manager Integrity: Kolton Storm [facility], Phone: [phone] [facility]ly [facility] 88-86-8248XLQVVdojcigqf (HEMASA) SANNA RENDON ([id number]) 1985 F Date Time Provider Department 05/14/24 [...] for deficiency. She is aware if her litigation partner or PCP request any additional testing, we [...] Date Reviewed: 04/28/2024 Reviewed by: Katherine Negrete APRN.CLINICAL LAW PROFESSOR - Fully Assessed Reason for Visit: Patient [...] 08/01/2022 Encounter Status:Closed by RACHAEL JOHNSON on 05/14/24[facility] MISCELLANEOUS TESTon 25-91-4713GOHNGPQFSHURH TESTCOMMENT.NOMS HealthcareComment on above:Test Ordered: [id number] , ID Ab Cytomegalovirus (CMV) Ab, IgG [...] 0.9 - 1.1 Positive >1.1 Performed at: [address] [id number] Manager Integrity: Dusty Miles PhD, Phone: [phone] Performed at: [address] [id number] Manager Integrity: China Ching MD, Phone: [phone] , Infectious Disease Antibody Profile CLINISYNCNOMS HealthcareNo Panel Informationon 93-18-5897RQJDDKBLRUGSP HealthcarePROTEIN C-FUNCTIONALon 50-61-1268SPGBFBD C-CWKXGLSGXU158 %73 - 180 % NOMS HealthcareComment on above:Performed at: [address] [id number] Manager Integrity: China Ching MD, Phone: [phone] PROTEIN S-ANTIGENon 71-99-0028LREAELB S, YGMD044 %61 - 136 %[facility] PROTEIN S, TOTAL96 %60 - 150 %NOMS HealthcareComment on above:This test was developed and its performance characteristics determined by [facility]. It has not been cleared or approved by the Food and Drug Administration. [facility] ANTITHROMBIN ACTIVITYon 73-70-5745Vvawaoepikqfcy and review of laboratory resultsAbnormalLee's Summit Hospital ANTITHROMBIN CBNBYWTQ680 %Jtaywnzs49 - 135 % NOMS HealthcareComment on above:An elevated antithrombin activity is of no known clinical significance. Direct Xa inhibitor anticoagulants such as rivaroxaban, apixaban and edoxaban will lead to spuriously elevated antithrombin activity levels possibly masking a deficiency. Performed at: [address] [id number] Manager Integrity: China Ching MD, Phone: [phone] ALL IMMUNOGLOBULIN Koffi 98-29-6392FCQ IMMUNOGLOBULIN G, QN913 mg/dL586 - 1602 mg/dLNOID HealthcareComment on above:Performed at: [address] [id number] Manager Integrity: Dusty Miles PhD, Phone: [phone] ALL IMMUNOGLOBULIN Mon 40-45-3304OTF IMMUNOGLOBULIN M, Q177 mg/dL26 - 217 mg/dL NOM HealthcareComment on above:Performed at: [address] [id number] Manager Integrity: Dusty Miles PhD, Phone: [phone] METRO HOMOCYSTEINEon 73-36-6196LNEAILBO(E)INE5.8 umol/L0.0 - 14.5 umol/LNOMS HealthcareNo Panel Informationon 29-56-7284KMYSSVQRZHCZE HealthcareALL CBC WITH AUTO DIFFon 85-83-0677DWJDVTHWM ABSOLUTE THXD4WIII HealthcareBasophils/100 WBC (Bld)0.2 %0.2 - 2.0 %NOMS HealthcareEosinophils/100 WBC (Bld)0.7 %Low0.9 - 7.0 % NOMS HealthcareErythrocyte distribution width (RBC) [Ratio]13 %11.0 - 15.0 %NOMS HealthcareHematocrit (Bld) [Volume fraction]35.6 %Low36.0 - 48.0 %[facility] for ChildrenHemoglobin (Bld) [Mass/Vol]12.3 g/dL12.0 - 16.0 g/dLShriners Hospitals for Children IMMATURE GRANULOCYTES ABS AUTO0.04HighNOSaint Alexius HospitalImmature granulocytes/100 WBC (Bld)0.4 %0.0 - 0.5 %[facility] ChildrenInterpretation and review of laboratory resultsAbnormalNOID HealthcareLYMPHOCYTES ABSOLUTE AUTO2.5NOMS [facility] Lymphocytes/100 WBC (Bld)26.1 %20.5 - 60.0 %[facility] Health SystemH (RBC) [Entitic mass]31 pg26.7 - 34.0 pgNOMercy hospital springfieldHC (RBC) [Mass/Vol]34.6 g/dL29.9 - 35.2 g/dLShriners Hospitals for ChildrenMCV (RBC) [Entitic vol]89.7 fL81.0 - 99.0 fLShriners Hospitals for Children MONOCYTES ABSOLUTE AUTO0.6NOMS HealthcareMonocytes/100 WBC (Bld)6 %1.7 - 12.0 % [facility] for ChildrenNEUTROPHILS ABSOLUTE AUTO6.3NOMS HealthcareNeutrophils/100 WBC (Bld)66.6 %43.0 - 75.0 %[facility] Hospitals for ChildrenPlatelet mean volume (Bld) [Entitic vol] 9.9 fL9.5 - 13.5 fLNOMS [facility] CenterTBH EO #0.1NOMS [facility] CenterTB XBJ594GPYB [facility] CenterTB RBC3.97LowNOMS [facility] CenterTB WBC9.4NOMS [facility] Medical CenterCLINISYNCNCooper County Memorial HospitalCC APTTon 88-04-5422fZDZ Coag (Bld) [Time]28.5 [facility] Medical CenterLon 05-10-2024L Specimen: [id number] Received: 05/12/24-120 Status: BALDOMERO Andrade Num: [id number] Spec Type: Surgical Subm Dr: Wilton Herrmann Tissues: A Placenta - Other than 3rd Trimester (14 WK PLACENTA) Procedures: HE/3, Gross/Micro L4 Age/ Patient Sex Location Account Attending Physician Sanna Rendon 38/F LABE[facility] [id number] Wilton Herrmann SPEC NUM: [id number] RECD: 05/12/24-1209 STATUS: BALDOMERO ANDRADE NUM: [id number] AMARILYS: 05/10/24- SUBM DR: Wilton Herrmann ENTERED: 05/12/24-[address]: Yao Pickett SPEC TYPE: Surgical DEPT: [facility] ENTERED BY: [id number] RECV BY: [id number] ORDERED: HE/3, Gross/Micro L4 ORDERED: HE/3, Gross/Micro [...] BS25-17 Received: 05/12/24 Status: BALDOMERO Andrade Num: [id number] Spec Type: Surgical Subm Dr: Wilton Herrmann Tissues: A Placenta - Other than 3rd Trimester (14 WK PLACENTA) Procedures: DEION/Ramone, Gross/Micro L4 Patient: Lizandro,Katie [id number] (Continued) Specimen: [id number] Received: 05/12/24 (Continued) Gross Description (Continued) Signed (signature on file) Vivi Hill MD 05/13/24 1605 Specimen: [id number] Received: 05/12/24 Status: JUSTINEBrittany Andrade Num: [id number] Spec Type: Surgical Subm Dr: Wilton Herrmann Tissues: A Placenta - Other than 3rd Trimester (14 WK PLACENTA) Procedures: /3, Gross/Micro L4 Patient: Sanna Rendon [id number] (Continued) Specimen: [id number] Received: 05/12/24 (Continued) Gross [...] and uniform. Cassettes: A1 Rolled membrane A2-A3 Delivery Person sections of placenta (3, ss, BS25-17 A) JosselynG . CPT Codes 35701 Specimen: [id number] Received: 05/12/24 Status: BALDOMERO Andrade Num: [id number] Spec Type: Surgical Subm Dr: Wilton Herrmann Tissues: A Placenta - Other than 3rd Trimester (14 WK PLACENTA) Procedures: DEION/Ramone, Gross/Micro L4 Patient: LizandroSanna [id number] (Continued) Signed (signature on file) Vivi Hill MD 05/13/[address] [place] [address] Physician GroupMHPT FIBRINOGENon 05-10-2024 OHVHZLOUUR995 mg/dL200 - 400 mg/dLNOSaint Alexius HospitalNo Panel Informationon 33-49-2899CXFOBIRLANKTO HealthcareSRMCOH PROTHROMBIN TIME INR W/O COUMon 35-76-2038UP Coag (PPP) [Time]10.3 sNCox North INR0.97[facility] Comment on above:DESIRED INR: 2.0-3.0 CONDITIONS NOT LISTED BELOW 2.5-3.5 FOR PROSTHETIC HEART VALVE REPLACEMENT 2.5-3.5 RECURRENT THROMBOSIS US PELVISon 39-56[place], [place] [address] Ultrasound Report Signed Patient: SANNA RENDON MR#: [id number] : 1985 Acct:[id number] Age/Sex: 38 / F ADM Date: [facility]: Wilton Herrmann D.O. Ordering Physician: Wilton Herrmann D.O. Date of Service: 05/10/24 Procedure(s): US pelvis Accession Number(s): [id number] cc: Wilton Herrmann D.O.; PENELOPE CASAS [place] [phone] Patient Name: SANNA RENDON MRN: [id number] date: 1985 Sex: F [facility] Accession/Order Number: [id number] Exam Date: 05/10/2024 14:36 Report Date: 05/10/2024 [...] M.D. Signed By: 05/10/241603 DD/ 01 TD/TT: Clinical Informatics Director:ELVERadiology, Radiologist, - 05/10/2024 [place] [address] Ultrasound Report Signed Patient: SANNA RENDON MR#: [id number] : 1985 Acct:[id number] Age/Sex: 38 / F ADM Date: [facility]: Wilton Herrmann D.O. Ordering Physician: Wilton Herrmann D.O. Date of Service: 05/10/24 Procedure(s): US pelvis Accession Number(s): [id number] cc: Wilton Herrmann D.O.; PENELOPE CASAS [place] [address] Patient Name: SANNA RENDON MRN: [id number] date: 1985 Sex: F [facility] Accession/Order Number: [id number] Exam Date: 05/10/2024 14:36 Report Date: 05/10/2024 [...] M.D. Signed By: 05/10/241603 DD/ 01 TD/TT: Clinical Informatics Director: SHILOH HealthcareRadiology Study observation (narrative)SHILOH HealthcareUS PELVIS Ordered By: Radiologist Radiology on 48-34-6244ZHRJ Healthcare Work Phone: US for pregnancyon [phone] [place] [phone] Ultrasound Report Signed Patient: SANNA RENDON MR#: [id number] : 1985 Acct:[id number] Age/Sex: 38 / F ADM Date: [facility]: Wilton Herrmann D.O. Ordering Physician: Wilton Herrmann D.O. Date of Service: 05/10/24 Procedure(s): US OB limited Accession Number(s): [id number] cc: Wilton Herrmann D.O.; PENELOPE CASAS [address] [address] Patient Name: SANNA RENDON MRN: [id number] date: 1985 Sex: F [facility] Current Patient Location: [place] Accession/Order Number: [id number] Exam Date: 05/10/2024 08:30 Report Date: 05/10/2024 [...] M.D. Signed By: 05/10/24928 DD/ 5 TD/TT: Clinical Informatics Director:ELVERadiologPacheco morales, - 05/10/2024 [place] [address] Ultrasound Report Signed Patient: SANNA RENDON MR#: [id number] : 1985 Acct:[id number] Age/Sex: 38 / F ADM Date: [facility]: Wilton Herrmann D.O. Ordering Physician: Wilton Herrmann D.O. Date of Service: 05/10/24 Procedure(s): US OB limited Accession Number(s): [id number] cc: Wilton Herrmann D.O.; PENELOPE CASAS [place] [address] Patient Name: SANNA RENDON MRN: [facility]:[id number] date: 1985 Sex: F Assigned [facility] Current Patient Location: [place] Accession/Order Number: [id number] Exam Date: 05/10/2024 08:30 Report Date: 05/10/2024 [...] M.D. Signed By: 05/10/24928 DD/ 5 TD/TT: Clinical Informatics Director: SHILOH HealthcareRadiology Study observation (narrative)NOMS HealthcareUS for pregnancyOrdered By: Radiologist Radiology on 54-97-1803EVME Healthcare Work Phone: us OB TRANSVAGINALon 62-89-4554HY OB TRANSVAGINALTITLE OF EXAM: OB Ultrasound: REASON [...] period was 01/29/2024.Urinalysis macro (dipstick) panel (U)on 53-95-9466Nvmiwzxzp, UANegativeNegative - 4(70) +++ mg/dLNOID Healthcare Blood, UANegativeNegative - 50 Max/mcLNOID HealthcareClarity, UAClearNOID HealthcareColor, UAYellowNOID HealthcareGlucose, UANegativeNegative - 2000(110) ++++ mg/dLNOID HealthcareInterpretation and review of laboratory resultsNormal NOMS HealthcareKetones, UANegativeNegative - 160(16) ++++ mg/dLNOID Healthcare Leukocytes, UANegativeNegative - 500+++ John/mcLNOID HealthcareNitrite, UA NegativeNegative - PositiveNOMS HealthcarepH, UA65 - 9NOMS HealthcareProtein, UA NegativeNegative - 2000(20) ++++ mg/dLNOID HealthcareSpec Grav, UA1.011 - 1.03 NOMS HealthcareUrobilinogen, UA0.20.2 - 12 mg/dLNOMS HealthcareNOMS Healthcare BOX TESTon 55-49-1766EDV TEST SENT OUTYNOMS JgvnuzhgcrRBL7UENAMEVAA Healthcare BHY13106/13/23NOMS HealthcareUNITY BOX CLINISYNCNOID HealthcareTBH DRUG SCREEN RAPID (URINE)on 32-25-7398DYFHNKGZVHM SCREEN URINENegativeNEGATIVENOMS HealthcareBARBITURATES SCREEN URINENegative NEGATIVENOMS HealthcareBENZODIAZEPINES [...] TRICYCLIC ANTIDEPRESSANT URINENegativeNEGATIVENOMS HealthcareCLINISYNCNOMS HealthcareUS OB TRANSVAGINALon 37-62-7631QfaTr[place], [place] [address] Ultrasound Report Signed Patient: Sanna Rendon MR#: [id number] : 1985 Acct:[id number] Age/Sex: 38 / F ADM Date: 04/04/24 Loc: [facility] Attending Dr: Wilton Herrmann D.O. Ordering Physician: Wilton Herrmann D.O. Date of Service: 04/04/24 Procedure(s): US OB transvaginal Accession Number(s): [id number] cc: Wilton Herrmann D.O.; PENELOPE CASAS [place] [phone] Patient Name: SANNA RENDON MRN: TBH:[id number] date: 1985 Sex: F Assigned Patient [facility] Current Patient Location: Accession/Order Number: [id number] Exam Date: 04/04/2024 09:43 Report Date: 04/05/2024 [...] Signed By: 04/05/24 0442 DD/ 0439 TD/TT: Clinical Informatics Director:TBHRadiology, Radiologist, MD - 04/05/2024 [place] [address] Ultrasound Report Signed Patient: Sanna Rendon MR#: [id number] : 1985 Acct:[id number] Age/Sex: 38 / F ADM Date: 04/04/24 Loc: [facility] Attending Dr: Wilton Herrmann D.O. Ordering Physician: Wilton Herrmann D.O. Date of Service: 04/04/24 Procedure(s): US OB transvaginal Accession Number(s): [id number] cc: Wilton Herrmann D.O.; PENELOPE CASAS [place] [phone] Patient Name: SANNA RENDON MRN: TBH:[id number] date: 1985 Sex: F Assigned Patient Location: [facility] Current Patient Location: Accession/Order Number: [id number] Exam Date: 04/04/2024 09:43 Report Date: 04/05/2024 [...] M.D. Signed By: 04/05/242 DD/ 8 TD/TT: Clinical Informatics Director: SHILOH HealthcareRadiology Study observation (narrative)[facility] for ChildrenUS OB TRANSVAGINALOrdered By: Radiologist Radiology on 97-80-1059KSLS [employer] Work Phone: HCG ( test) Ql (U)on 66-28-2034Rumqcfhjoikexv and review of laboratory resultsAbnormalNOMS HealthcarePreg Test, UrPositive NegativeNOSaint Alexius HospitalNOID HealthcareUrinalysis macro (dipstick) panel (U)on 98-19-4691Ylcstzvvx, UANegativeNegative - 4(70) +++ mg/dLNOMS HealthcareBlood, UANegativeNegative - 50 Max/mcLNOMS HealthcareClarity, UAClearNOMS Healthcare Color, UAYellowNOMS HealthcareGlucose, UANegativeNegative - 2000(110) ++++ mg/dL NOMS HealthcareInterpretation and review of laboratory resultsNormalNOID HealthcareKetones, UANegativeNegative - 160(16) ++++ mg/dLNOMS Healthcare Leukocytes, UANegativeNegative - 500+++ John/mcLNOMS HealthcareNitrite, UA NegativeNegative - PositiveNOMS HealthcarepH, UA5.55 - 9NOMS HealthcareProtein, UANegativeNegative - 2000(20) ++++ mg/dLNOMS HealthcareSpec Grav, UA1.021 - 1.03 NOMS HealthcareUrobilinogen, UA1.00.2 - 12 mg/dLNOMS HealthcareNOMS HealthcareC Urineon 91-98-4148Xdkeuroa identified Cx Nom (U)Microbiology PROCEDURE: Urine Culture [R1] SOURCE: U CleanCatch BODY SITE: COLLECTED DATE/TIME: 03/01/2024 10:30 EDT RECEIVED DATE/TIME: 03/01/2024 13:48 EDT START DATE/TIME: 03/01/2024 13:48 EDT FREE TEXT SOURCE: Wilton HERRMANN DO, DO, Corey R FINAL REPORTS Final Report [] Verified Date/Time: 03/03/2024 08:52 EST 2,000 cfu/ml Mixed skin contaminants Performing Locations R1: This test was performed at: [facility], [address] [place] [address], [facility] , , KuhhtiBaahgdTriHealth Bethesda North HospitalComment on above:Performed By: #### [id number] #### [facility] [address] [place] [address] 29165QcBV Quanton 43-11-4471QVT.beta subunit Qn747 m[IU]/mLHigh1-3 [facility] CenterComment on above:Result Comment: 'F NON < 1 - 3' ' 0.2 - 1 WEEK = 5 TO 50' ' 1 - 2 WEEKS = 50 - 500' ' 2 - 3 WEEKS = 100 - 5000' ' 3 - 4 WEEKS = 500 - 12291' ' 4 - 5 WEEKS = 1000 - 10728' ' 5 - 6 WEEKS = 95386 - 575132' ' 6 - 8 WEEKS = 44763 - 595888' ' 8 - 12 WEEKS = 80712 - 124496'Performed By: #### [id number] #### [facility] [address], [place] [address]VSXUBCJIXIpyikvq By: SYSTEM SYSTEM on 55-02-2427KQR.beta subunit Qn747 m[IU]/mLHigh1 - 3 mIU/mLRemisol ChemComment on above:Result Comment: 'F NON < 1 - 3' ' 0.2 - 1 WEEK = 5 TO 50' ' 1 - 2 WEEKS = 50 - 500' ' 2 - 3 WEEKS = 100 - 5000' ' 3 - 4 WEEKS = 500 - 90033' ' 4 - 5 WEEKS = 1000 - 51172' ' 5 - 6 WEEKS = 68614 - 438330' ' 6 - 8 WEEKS = 10553 - 742659' ' 8 - 12 WEEKS = 46724 - 159464'BhCG Quanton 53-73-1872USW.beta subunit Qn268 m[IU]/mLHigh1-3FHighland District HospitalComment on above:Result Comment: 'F NON < 1 - 3' ' 0.2 - 1 WEEK = 5 TO 50' ' 1 - 2 WEEKS = 50 - 500' ' 2 - 3 WEEKS = 100 - 5000' ' 3 - 4 WEEKS = 500 - 96259' ' 4 - 5 WEEKS = 1000 - 54057' ' 5 - 6 WEEKS = 78198 - 886794' ' 6 - 8 WEEKS = 38785 - 197024' ' 8 - 12 WEEKS = 75690 - 038644'Performed By: #### [id number] #### [facility] [address], [place] [address]KbAO Quanton 27-65-9191ZAC.beta subunit Qn123 m[IU]/mLHigh1-3 [facility] CenterComment on above:Result Comment: 'F NON < 1 - 3' ' 0.2 - 1 WEEK = 5 TO 50' ' 1 - 2 WEEKS = 50 - 500' ' 2 - 3 WEEKS = 100 - 5000' ' 3 - 4 WEEKS = 500 - 62979' ' 4 - 5 WEEKS = 1000 - 19149' ' 5 - 6 WEEKS = 63555 - 197486' ' 6 - 8 WEEKS = 92762 - 740371' ' 8 - 12 WEEKS = 59247 - 160118'Performed By: #### [id number] #### [facility] [address], [place] [address]GLSFVEGSSEgxrkia By: SYSTEM SYSTEM on 45-29-7329MVG.beta subunit Qn123 m[IU]/mLHigh1 - 3 mIU/mLRemisol ChemComment on above:Result Comment: 'F NON < 1 - 3' ' 0.2 - 1 WEEK = 5 TO 50' ' 1 - 2 WEEKS = 50 - 500' ' 2 - 3 WEEKS = 100 - 5000' ' 3 - 4 WEEKS = 500 - 44625' ' 4 - 5 WEEKS = 1000 - 62535' ' 5 - 6 WEEKS = 34417 - 216376' ' 6 - 8 WEEKS = 12347 - 902124' ' 8 - 12 WEEKS = 33355 - 325636'NmaZ9cux 59-58-8707LfL0y (Bld) [Mass fraction]6.0 %High<=5.9[facility] CenterComment on above:Performed By: #### [id number] #### [facility] [address], [place] [address]QKD Screen 4th Generation wRfxon 10-40-5169XDN 1+2 Ab+HIV1 p24 Ag IA QlNon-ReactiveInvalid Interpretation CodeNon ReactiveUniversity Hospitals Beachwood Medical CenterComment on above:Result Comment: HIV-1/HIV-2 antibodies and HIV-1 p24 antigen were NOT detected. There is no laboratory evidence of HIV infection. HIV Negative Performed at: [facility] [address] [place], [place] [id number] PhD Jd MontanoPerformed By: #### [id number] #### [facility] [address], [place] [address]LgGQ Quanton 68-57-6912LJA.beta subunit Qn52 m[IU]/mLHigh1-3 [facility] CenterComment on above:Result Comment: 'F NON < 1 - 3' ' 0.2 - 1 WEEK = 5 TO 50' ' 1 - 2 WEEKS = 50 - 500' ' 2 - 3 WEEKS = 100 - 5000' ' 3 - 4 WEEKS = 500 - 35095' ' 4 - 5 WEEKS = 1000 - 70529' ' 5 - 6 WEEKS = 49608 - 475981' ' 6 - 8 WEEKS = 44394 - 166101' ' 8 - 12 WEEKS = 31985 - 546478'Performed By: #### [id number] #### [facility] [address] [place], [place] [address]XQLDZJNHDHkcpjzd By: SYSTEM SYSTEM on 03-75-6018Jcfpxfairrq [Mass/Vol]225 mg/eUCmml395 - 200 mg/dLRemisol ChemCholesterol in HDL [Mass/Vol] [...] 3 - 4 WEEKS = 500 - 28883' ' 4 - 5 WEEKS = 1000 - 44057' ' 5 - 6 WEEKS = 16636 - 903009' ' 6 - 8 WEEKS = 22061 - 994825' ' 8 - 12 WEEKS = 71485 - 177111'Triglyceride [Mass/Vol]212 mg/dLHigh <=149mg/dLRemisol ChemTSH Qn5.68 m[IU]/LHigh0.34 - 5.60 mcIU/mLRemisol Chem CHEMISTRYOrdered By: Chelsey Price on 40-13-6859BqV5g (Bld) [Mass fraction]5.9 %Normal<=5.9%[facility] GlxhYgooOTKznE8omq 97-83-1683LzN7h (Bld) [Mass fraction]5.9 % Normal<=5.9[facility] CenterComment on above:Performed By: #### [id number] #### [facility] [address], [place] [address]Jlzec Panelon 56-94-2719Inhcsupoetw [Mass/Vol]225 mg/dLHigh 120-200[facility] CenterComment on above:Performed By: #### [id number] #### [facility] [address], [place] [address]Lyegddupkti in HDL [Mass/Vol]40 mg/dLInvalid Interpretation CodeUniversity Hospitals Beachwood Medical CenterComment on above:Result Comment: '>= 60 LOW RISK' '<= 40 HIGH RISK'Performed By: #### [id number] #### [facility] [address], [place] [address]Ibixnlsjtds in LDL [Mass/Vol]171 mg/dLHigh<=129[facility] CenterComment on above:Performed By: #### [id number] #### [facility] [address], [place] [address]Ipupychhtgw in VLDL [Mass/Vol]42 mg/dLHigh7-40[facility] CenterComment on above:Performed By: #### [id number] #### [facility] [address], [place] [address]Vmfquidshqgv [Mass/Vol]212 mg/dLHigh<=149[facility] CenterComment on above:Performed By: #### [id number] #### [facility] [address], [place] [address]FMZgw 68-74-7219ULE Qn5.68 m[IU]/LHigh0.34-5.60[facility] CenterComment on above:Performed By: #### [id number] #### [facility] [address] [place], [place] [address]Djjtvxrzjb Visit Summaryon 03-63-6727Gqynpoejpj Visit Summary Ambulatory Visit Summary SANNA RENDON [...] EST With: Penelope CASAS DO, FAAFP Where: [facility] [address], [facility] [place] [address]- You Need to Schedule the Following Appointments Follow Up with Penelope CASAS DO, FAAFP, FAM, PED When: In 3 months Where: [address], [facility] [place] [address]- You Need to Complete the Following HgbA1c, [...] virus infection Vaginal marlee (more content not included)...[facility] Family Medicine Office/Clinic Noteon 11-73-0414Tyyuew Medicine Office/Clinic NoteFaworcester city hospital Medicine Office/Clinic Note Chief Complaint Patient [...] 40 mg subcu, continue to follow-up with wirer maintenance 5. Gestational diabetes (O24.419: Gestational diabetes mellitus in , unspecified control) Metformin 500 mg daily XR tabs 2/day per [facility] ROLLER Ordered: HgbA1c HgbA1c HgbA1c HgbA1c 6. Well [...] FAAFP, CHRIS, PED In 3 months [address] [facility], [facility] [place] [address]- Additional Instructions: Patient Education Acute Bronchitis, Adult Problem List/Past Medical History Ongoing Acute (more content not included)...[facility] HospitalComment on above:Result Comment: Electronically Signed By: [...] Community acquired pneumonia Refills: 5 Pickup at [facility] 1985 New azithromycin (azithromycin 250 mg Tab 5-day Dose Pack (Z-Jonny)) 1 Packets By Mouth As Directed Community acquired pneumonia Duration: 5 Days as directed on package labeling Pickup at [facility] 1985 Unchanged enoxaparin (Lovenox 40 mg/ [...] physician if questions or concerns Pharmacy Information [facility] 1986: [address] [facility] [facility] [place] [id number] [phone] Allergies Milk Products (Illness) ciprofloxacin (Numbness and [...] for choosing us for your care. [facility] Medicine Office/Clinic Noteon 04-21-8603Qjyobt Medicine Office/Clinic NoteFaworcester city hospital Medicine Office/Clinic Note Chief Complaint SOB [...] a 38 Years White Female presenting to [facility] with body aches and productive [...] puff(s), Inhalation, q6hr, 1 EA, Refill(s) 5, [facility] 1985, 168, cm, 02/01/2414:43:00 EDT, Height/Length Dosing, 101.1, kg, 02/02/24 14:43:00 EDT, Weight Dosing azithromycin, = 1 packet(s), Oral, As Directed, as directed on package labeling, X 5 day(s), # 6 tab(s), Refills(s) 0, Pharmacy: [facility] 1985, 168, cm, 02/02/24 [...] Bernstein MD, FAM, MED Only if needed [address] [place] [phone] Additional Instructions: Problem List/Past Medical History Ongoing [...] Vitamin D, 2000 [employer]_Unit (more content not included)...[facility] HospitalComment on above:Result Comment: Electronically Signed By: Anni Bernstein MD\.br\Date and Time Signed: 02/01/2415:03 EDTMRI Brain w/o Contraston 88-26-3529TGZ Brain w/o ContrastExam Date/Time: 12/06/2023 14:48 EDT [...] Barker MD Transcribed by: LINDY Technologist: Patt [facility] HospitalCortisolon 09-39-3992Xrmjazrv [Mass/Vol]12.5 microgram/dLInvalid Interpretation Code 6.2-19.4FHighland District HospitalComment on above:Result Comment: Please Note: The reference interval and flagging for this test is for an AM collection. If this is a PM collection please use: Cortisol PM: 2.3-11.9 Performed at: [employer] [id number] PhD Jd Garciaformed By: #### [id number] #### [facility] [address], [place] [address]D5 Freeon 80-70-2194Tqzd T3 [Mass/Vol]2.5 pg/mLInvalid Interpretation Code2.0-4.4FHighland District HospitalComment on above:Result Comment: Performed at: [email or web address] [id number] PhD Jd Garciaformed By: #### [id number] #### [facility] [address], [place] [address]Qvnwneugu 88-21-5961Gmbztfw [Catalytic activity/Vol]38 U/L Xgrfah94-953SkbdksUniversity Hospitals Beachwood Medical CenterComment on above:Performed By: #### [id number] #### [facility] [address], [place] [address]QZHROEDVOBuqzqja By: SYSTEM SYSTEM on 88-42-0365Drhpafx [Catalytic activity/Vol]38 U/KYgnglg30 - 157 unit/LRemisol ChemCobalamin (Vitamin B12) [Mass/Vol]328 pg/rRXcesky31 - 1500 pg/mLRemisol ChemCRP [Mass/Vol] 0.2 mg/dLNormal<=1.9mg/dLRemisol ChemFree T4 [Mass/Vol]0.58 ng/dLNormal0.58 - 1.64 ng/dLRemisol ChemTSH Qn4.97 m[IU]/LNormal0.34 - 5.60 mcIU/mLRemisol ChemCRP on 82-06-6450VIR [Mass/Vol]0.2 mg/dLNormal<=1.9[facility] Comment on above:Performed By: #### [id number] #### [facility] [address] [place] [address]Qcus T4on 39-70-1512Ryyg T4 [Mass/Vol]0.58 ng/dLNormal0.58-1.64 [facility] CenterComment on above:Performed By: #### [id number] #### [facility] [address], [place] [address]DTGPBVSCWPAfxjoht By: Isha Zheng on 44-99-6038BBG (Bld) [Velocity]18 mm/hNormal0 - 34 mm/FT HemeAutoSSSed Rate Automatedon 60-13-1896HIK (Bld) [Velocity]18 mm/hNormal0-34[facility] Comment on above:Performed By: #### [id number] #### [facility] [address], [place] [address]PKGcw 01-04-6351MUT Qn4.97 m[IU]/LNormal0.34-5.60[facility] CenterComment on above:Performed By: #### [id number] #### [facility] [address], [place] [address]Qie B12on 04-04-7777Xmcxspban (Vitamin B12) [Mass/Vol]328 pg/mL Tadxkg32-1911QurllxUniversity Hospitals Beachwood Medical CenterComment on above:Performed By: #### [id number] #### [facility] [address], [place] [address]Xagpak Medicine Office/Clinic Noteon 42-26-0124Bpoawv Medicine Office/Clinic NoteFaworcester city hospital Medicine Office/Clinic Note Chief Complaint Right [...] Iron deficiency) Mild, as reported by her wirer maintenance, labs from 2022 appear normal 6. Pre-diabetes (R73.03: Prediabetes) Last A1c Continue metformin Nutrition: - Maintain optimal weight - Calorie restriction - Plant-based diet; high polyunsatur (more content not included)...[facility] HospitalComment on above:Result Comment: Electronically Signed By: Jayant YEBOAH, Monica Varela\.br\Date and Time Signed: 11/09/23 15:56 EDTPhysician Referralon 49-08-9107Caqwoztfc Referral [id number] Bethesda North HospitalAmbulatory Visit Summaryon 67-83-9119Jigtojnatf Visit Summary SANNA RENDON :1985 Visit Date:10/23/2023 [...] (Vitamin D) fluticasone nasal (Flonase 0.05 mg/inh [place]) metformin (MetFORMIN (Eqv-Glucophage XR) 500 mg oral [...] EDT With: Penelope CASAS DO, FAAFP Where: [facility]/Clinic Noteon 88-01-0482Njhgym Medicine Office/Clinic NoteChief Complaint pt here for [...] Mouth: mucous membranes pink, moist and intact. [place] posterior oropharynx, no palatal inflammation,uvula midline, no [...] 10/23/23 16:55:00 EDT, Weight Dosing [facility] [place] 2. Nasal polyps (J33.9: Nasal polyp, unspecified) pt reported - moved before previous ENT could perform surgery - submitted new referral at this time Ordered: [facility] [place] 3. Deviated septum (J34.2: Deviated nasal septum) pt reported - moved before previous ENT could perform surgery - see #2 Ordered: [facility] [place] 4. BMI 37.0-37.9, adult [...] Dosing 5. Obesity ( (more content not included)...[facility] Comment on above:Result Comment: Electronically Signed By: Shirlene YEBOAH, Lourdes Baltazar\.br\Date and Time Signed: 10/23/23 17:13 EDTPatient Educationon 34-86-5209Magpbaq EducationENT Deviated Septum The septum is the [...] specializes in ear, nose, and throat disorders (product marketing intern, or ENT) for more tests and treatment. [...] Follow these instructions at home: ? Take tlty-llm-hheirqj and prescription medicines only as told by [...] specializes in ear, nose, and throat disorders (product marketing intern, or ENT) for more tests and treatment. This information is not intended to replace advice given to you by your health care provider. Make sure you discuss any questions you have with your health care provider. Document Revised: 12/12/2021 Document Reviewed: 12/12/2021 Motor2 Patient Education ? 2022 for[MD]. Nasal Polyps Nasal polyps are growths that form in the nose. Inflammation in the nose or sinus openings can leadto changes in the tissue (mucosa) that lines these areas. Long-term inflammation causes the mucosa to grow into a polyp filled with watery mucus. Nasal polyps look like moist, ochoa grapes in the nose. Nasal polyps are not cancer (more content not included)...NormalFisher [facility]star Union [facility] HospitalCT Abdomen/Pelvis w/o Contraston 40-88-5263OA Abdomen/Pelvis w/o Contrast Exam Date/Time: 09/28/2023 19:58 [...] Given? No Oral contrast amount in ml's: 0NormBucyrus Community HospitalB hCG Qualon 74-17-0571Vgxp HCG ( test) QlNegativeTriHealth Bethesda North Hospital Comment on above:Performed By: #### [id number] #### [facility] [address], [place] [address]EVRup 54-52-0557Dtgly gap [Moles/Vol]13 mmol/LNormal6-16[facility] CenterComment on above:Performed By: #### [id number] #### [facility] [address], [place] [address]Kpamaib [Mass/Vol]9.9 mg/dLNormal8.9-11.1FHighland District HospitalComment on above:Performed By: #### [id number] #### [facility] [address], [place] [address]Uwuajbcr [Moles/Vol]101 mmol/SPzkuhl982-731WfentuUniversity Hospitals Beachwood Medical CenterComment on above:Performed By: #### [id number] #### [facility] [address], [place] [address]PL9 [Moles/Vol]25 mmol/ICrltnx80-17SlcrbyUniversity Hospitals [facility]wood Medical Center Comment on above:Performed By: #### [id number] #### [facility] [address], [place] [address]Hvaxxheztq [Mass/Vol]0.9 mg/dLNormal0.5-1.3FHighland District HospitalComment on above:Performed By: #### [id number] #### [facility] [address], [place] [address]Oaibtwp [Mass/Vol]94 mg/dUOvwagc35-766LexymjUniversity Hospitals Beachwood Medical CenterComment on above:Performed By: #### [id number] #### [facility] [address], [place] [address]Gqvvygbol [Moles/Vol]3.6 mmol/LNormal3.5-5.3FHighland District HospitalComment on above:Performed By: #### [id number] #### [facility] [address], [place] [address]Gbdlvq [Moles/Vol]135 mmol/RBqvkqd123-486YdcmwbUniversity Hospitals Beachwood Medical CenterComment on above:Performed By: #### [id number] #### [facility] [address], [place] [address]Cnfb nitrogen [Mass/Vol]8 mg/dLNormal5-21[facility] CenterComment on above:Performed By: #### [id number] #### [facility] [address] [place] [address]Kqvr nitrogen/Creatinine [Mass ratio]9 No SvubqJpb94-86HefaoqUniversity Hospitals Beachwood Medical CenterComment on above:Performed By: #### [id number] #### [facility] [address] [place] [address]QWO w/ Auto Diffon 87-66-5373Axzexnftc/100 WBC (Bld)0.7 %Normal 0.0-2.0[facility] Medical CenterComment on above:Performed By: #### [id number] #### [facility] [address] [place] [address]Vlesubpgp/Leukocytes Auto (Bld) [Pure # fraction]0.1 E9/LNormal 0.0-0.2FHighland District HospitalComment on above:Performed By: #### [id number] #### [facility] [address] [place] [address]Dmlenusuxom (Bld) [#/Vol]0.0 E9/LNormal0.0-0.5FHighland District HospitalComment on above:Performed By: #### [id number] #### [facility] [address] [place] [address]Zijamqmeglb/100 WBC (Bld)0.5 %Normal0.0-8.0[facility] CenterComment on above:Performed By: #### [id number] #### [facility] [address] [place] [address] 10[address]Sbhgspjpvex distribution width (RBC) [Ratio]14.3 %High10.9-14.2 [facility] CenterComment on above:Performed By: #### [id number] #### [facility] [address] [place] [address] 37[address]Gfirsozion (Bld) [Volume fraction]39.5 %Qgvewv76.0-46.0[facility] CenterComment on above:Performed By: #### [id number] #### [facility] [address] [place] [address] 20[address]Pywlevroal (Bld) [Mass/Vol]13.2 g/sRAffnma20.0-16.0[facility] CenterComment on above:Performed By: #### [id number] #### [facility] [address] [place] [address]Grnfarfcucn (Bld) [#/Vol]3.5 E9/LNormal1.0-4.0[facility] CenterComment on above:Performed By: #### [id number] #### [facility] [address] [place] [address] 889[address]Dcqrtnhhtnb/100 WBC (Bld)35.6 %Mbcxgi14.0-50.0[facility] CenterComment on above:Performed By: #### [id number] #### [facility] [address] [place] [address] 69289GXF (RBC) [Entitic mass]29.3 ciNjjuak38.0-34.0[facility] CenterComment on above:Performed By: #### [id number] #### [facility] [address] [place] [address]DAQF (RBC) [Mass/Vol]33.5 g/pVFyttoz80.4-36.0[facility] CenterComment on above:Performed By: #### [id number] #### [facility] [address] [place] [address] 91037ORM (RBC) [Entitic vol]87.4 nFPptuff46.0-100.0[facility] CenterComment on above:Performed By: #### [id number] #### [facility] [address] [place] [address]Qioqfnele (Bld) [#/Vol]0.7 E9/LNormal0.2-1.0[facility] CenterComment on above:Performed By: #### [id number] #### [facility] [address] [place] [address]Trqxtthxtfy (Bld) [#/Vol]5.6 E9/LNormal2.0-7.5FHighland District HospitalComment on above:Performed By: #### [id number] #### [facility] [address] [place] [address] 437[address]Iagyojsmjsp/100 WBC (Bld)56.4 %Rbodzs29.0-75.0[facility] CenterComment on above:Performed By: #### [id number] #### [facility] [address] [place] [address] 84[address]Sezcasog mean volume (Bld) [Entitic vol]8.1 fLNormal6.4-10.8 [facility] CenterComment on above:Performed By: #### [id number] #### [facility] [address] [place] [address] 751[address]Iblmcmagi (Bld) [#/Vol]360.0 E9/DMnikno279.0-500.0[facility] CenterComment on above:Performed By: #### [id number] #### [facility] [address] [place] [address] 57007EPN (Bld) [#/Vol]4.5 E12/LNormal4.3-5.9[facility] CenterComment on above:Performed By: #### [id number] #### [facility] [address] [place] [address] 80[address]HUU corrected for nucl RBC Auto (Bld) [#/Vol]9.9 E9/LNormal 4.0-11.0[facility] CenterComment on above:Performed By: #### [id number] #### [facility] [address] [place] [address] 95[address]OLFQZFYPHCfkkzbg By: SYSTEM SYSTEM on 25-85-1893Upbjrxv [Mass/Vol]4.8 g/dLNormal3.3 - 5.0 gm/dLRemisol ChemAlbumin/Globulin [Mass ratio] 1.6 {ratio}Normal1.1 - 2.2Remisol ChemALP [Catalytic activity/Vol]66 [iU]/d Rfkvxg51 - 98 Int._Unit/LRemisol ChemALT No additional P-5'-P [Catalytic activity/Vol]16 [iU]/dNormal6 - 46 Int._Unit/LRemisol ChemAnion gap [Moles/Vol] 13 mmol/LNormal6 - 16 mEq/LRemisol ChemAST [Catalytic activity/Vol]15 [iU]/d Normal5 - 43 Int._Unit/LRemisol ChemBilirubin [Mass/Vol]0.3 mg/dLNormal0.0 - 1.1 mg/dLRemisol ChemBilirubin.direct [Mass/Vol]0.0 mg/dLNormal0.0 - 0.4 mg/dL Remisol ChemBilirubin.indirect [Mass or moles/Vol]0.3 mg/dLNormal0.1 - 0.9 mg/dL Remisol ChemCalcium [Mass/Vol]9.9 mg/dLNormal8.9 - 11.1 mg/dLRemisol Chem Chloride [Moles/Vol]101 mmol/GWstajd939 - 111 mmol/LRemisol ChemCO2 [Moles/Vol] 25 mmol/LHiohdb48 - 31 mmol/LRemisol ChemCreatinine [Mass/Vol]0.9 mg/dLNormal0.5 - 1.3 mg/dLRemisol ApuwnNKG83 mL/min/1.73 y9Mrkoky>=59mL/min/1.73 h9Nzqsuga ChemGlobulin (S) [Mass/Vol]3.0 g/dLNormal1.4 - 4.0 gm/dLRemisol ChemGlucose [Mass/Vol]94 mg/bCUhavph05 - 199 mg/dLRemisol ChemLipase [Catalytic activity/Vol]26 U/QVrmtnd20 - 58 unit/LRemisol ChemPotassium [Moles/Vol]3.6 mmol/LNormal3.5 - 5.3 mmol/LRemisol ChemProtein [Mass/Vol]7.8 g/dLNormal6.0 - 7.8 gm/dLRemisol ChemSodium [Moles/Vol]135 mmol/AVdawho985 - 145 mmol/LRemisol ChemUrea nitrogen [Mass/Vol]8 mg/dLNormal5 - 21 mg/dLRemisol ChemUrea nitrogen/Creatinine [Mass ratio]9 mg/mgLow10 - 20Remisol ChemConsent for Treatmenton 19-54-9622Uebyakq for Treatment [id number]#1.00[facility] CenterDischarge Instructionson 60-22-6459Deygxmsky Instructions [id number]#1.00TIFSelect [facility] Clinical Summaryon 38-34-5446CK Clinical Summary [place] [id number] ED Clinical Summary Person Information Name: SANNA RENDON Lita/[facility] Age: 37 Years : 1985 Sex: Female Language: Cuban PCP: Penelope CASAS DO, FAAFP Marital Status: Phone: [phone] Visit Id: Visit Reason: Medical problem - [...] 21:22:15 09/28/2023 21:22:15 AD[facility] [id number] PHYS DOC NOTES: MEDICAL INFORMATION: Prescriptions Given: Medications to Continue with No Changes Other Medications enoxaparin (Lovenox 40 mg/0.4 mL Injection) 40 Milligram Subcutaneous every 24 hours. ergocalciferol (Vitamin D) 2,000 International unit By Mouth every week. fluticasone nasal (Flonase 0.05 mg/inh [place]) 2 Sprays Nasal Inhalation every day. each nostril. metformin (MetFORMIN (Eqv-Glucophage XR) 500 mg oral tablet, extended release) 2 Tablets By Mouth every day. PATIENT EDUCATION INFORMATION: Instructions: Abdominal Pain, Adult Follow up: With: Address: When: Penelope CASAS [address] [place] [address], [place] [address] Business (1) In 3 days DIAGNOSIS: 1:Abdominal painNoKing's Daughters Medical Center Ohio CenterED Note-Physicianon 09-28-2023 ED Note-PhysicianPatient was signed [...] understanding agreement this plan is discharged stable condition.[facility] HospitalComment on above:Result Comment: Electronically Signed By: Sidney Daly DO\.cedrick\Date and Time Signed: 09/28/23 21:12 EDTED Note-PhysicianBasic Information Time Seen: Bijan Miramontes PA-C 09/28/2023 18:46 Chief Complaint Pt woke up around 7 am and started getting a pain on R side of belly button. States feels bloated and like her abdomen is coral.Was sent here from [facility] for possible appendicitis. Nausea, denies vomiting. History [...] mL, IV, Once Home Flonase 0.05 mg/inh [place], 2 spray(s), Nasal, Daily Lovenox 40 mg/0.4 [...] Lab Results No qual (more content not included)...[facility] HospitalComment on above:Result Comment: Electronically Signed By: Bijan Miramontes PA-C\.br\Date and Time Signed: 09/27/2417:50 EDT\.br\Electronically Co-Signed By: Benny Uribe DO\.br\Date and Time Co-Signed: 09/27/2418:44 EDTED Patient Education Noteon 45-79-6866EA Patient Education NoteGastroenterology Abdominal Pain, Adult Pain [...] these instructions at home: Medicines ? Take pqhf-gzx-dmiwzsj and prescription medicines only as told by [...] your condition for any changes. ? Take guim-nly-hssximl and prescription medicines only as told by [...] Reviewed: 08/25/2019 Elsevier Patient Education ? 2022 for[MD].[facility] ED Patient Summaryon 72-61-5572MX Patient Summary [address] [address] Patient Discharge Instructions Person Information Name: SANNA RENDON Age: 37 Years Arrival Date: 09/28/2023 18:21:25 Discharge Diagnosis: 1:Abdominal pain Primary Care Physician: Penelope CASAS DO, FAAFP Provider Information Primary Provider: Benny Uribe DO Advanced Toll Collector Supervisor:Bijan Miramontes PA-C The exam and treatment you received in the Emergency Department were for an urgent problem and are not intended as complete care. It is important that you follow up with a doctor, nurse practitioner,or physician?s accounting manager assistant controller for ongoing care. If your symptoms become [...] Instructions: With: Address: When: Penelope CASAS [address] [place] [address], [place] [address] Business (1) In 3 days In the event that this physician does not participate in your insurance network, please consult with your insurance company to find a nearby participating provider. Patient Education Materials: Abdominal Pain, Adult A MESSAGE TO ALL PATIENTS REGARDING OPIOIDS PRESCRIPTION OPIOIDS: WHAT YOU NEED TO KNOW Prescription opioids can be used to help relieve guplcnpm-kl-cbihnv pain and are often prescribed following a [...] your community drug take- back program or yourKeraFASTrmacy mail-back program, or flush them down the toilet, following guidance from the Food and Drug Administration (www.fda.gov/Drugs/ResourcesForYou). ? Visit www.cdc.gov/drugoverdose to learn about the risks of opioids abuse and overdose. ? If you believe you may be struggling with addiction, tell your health director of primary care and ask for guidance or call [facility]?S National Helpline at 6-822-302-Black Lotus. v Source: Dep (more content not included)...[facility] Family Medicine Office/Clinic Noteon 41-60-8400Twkfgx Medicine Office/Clinic NoteChief Complaint abdominal pain HPI [...] agree with above documented HPI by medical editor. Portions of this record may have been created with voice recognition artificial intelligence software, specifically [employer], [employer] and or [employer]. Substitutions may have occurred due to the inherent limitations of voice recognition and artificial intelligence software. Patient is a 37-year-old female who presents to [facility], for right lower quadrant pain, that [...] Repeat BP 140/90. 37-year-old female presented to [facility], for right lower quadrant abdominal pain, worseningsymptoms throughout the day, history of ovarian cyst, still has her appendix, no right upper quadrant pain. Patient worsening pain on exam, but no acute abdomen. Patient is willing to go to the emergency room after being discharged from [facility], for further evaluation of right [...] loss. We can o (more content not included)...[facility] HospitalComment on above:Result Comment: Electronically Signed By: CHARLA QUINTEROS, JANET\.br\Date and Time Signed: 09/28/23 18:28 EDTHEMATOLOGYOrdered By: SYSTEM SYSTEM on 27-72-1330Gzaiekhaf/100 WBC (Bld)0.7 %Normal0.0 - 2.0 %Remisol HemeBasophils/Leukocytes Auto (Bld) [Pure # fraction]0.1 E9/LNormal0.0 - 0.2 E9/LRemisol HemeEosinophils (Bld) [#/Vol]0.0 E9/LNormal0.0 - 0.5 E9/LRemisol HemeEosinophils/100 WBC (Bld)0.5 % Normal0.0 - 8.0 %Remisol HemeErythrocyte distribution width (RBC) [Ratio]14.3 % High10.9 - 14.2 %Remisol HemeHematocrit (Bld) [Volume fraction]39.5 %Maqnsh72.0 - 46.0 %Remisol HemeHemoglobin (Bld) [Mass/Vol]13.2 g/lYQdtvew65.0 - 16.0 gm/dL Remisol HemeLymphocytes (Bld) [#/Vol]3.5 E9/LNormal1.0 - 4.0 E9/LRemisol Heme Lymphocytes/100 WBC (Bld)35.6 %Fhlrbg90.0 - 50.0 %Remisol HemeMCH (RBC) [Entitic mass]29.3 njVrwmif43.0 - 34.0 pgRemisol HemeMCHC (RBC) [Mass/Vol]33.5 g/dL Awjgsb26.4 - 36.0 gm/dLRemisol HemeMCV (RBC) [Entitic vol]87.4 zXVudmze62.0 - 100.0 fLRemisol HemeMonocytes (Bld) [#/Vol]0.7 E9/LNormal0.2 - 1.0 E9/LRemisol HemeMonocytes/100 WBC (Bld)6.8 %Normal4.0 - 14.0 %Remisol HemeNeutrophils (Bld) [#/Vol]5.6 E9/LNormal2.0 - 7.5 E9/LRemisol HemeNeutrophils/100 WBC (Bld)56.4 % Afosab39.0 - 75.0 %Remisol HemePlatelet mean volume (Bld) [Entitic vol]8.1 fL Normal6.4 - 10.8 fLRemisol HemePlatelets (Bld) [#/Vol]360.0 E9/POwbmeg794.0 - 500.0 E9/LRemisol HemeRBC (Bld) [#/Vol]4.5 E12/LNormal4.3 - 5.9 E12/LRemisol HemeWBC corrected for nucl RBC Auto (Bld) [#/Vol]9.9 E9/LNormal4.0 - 11.0 E9/L Remisol HemeHep Func Panelon 41-20-5484Qbuskhh [Mass/Vol]4.8 g/dLNormal3.3-5.0 [facility] CenterComment on above:Performed By: #### [id number] #### [facility] Laboratory [address], [place] [address]Qkznbgw/Globulin (S) [Mass conc ratio]1.4Cgwnpk7.1-2.2FHighland District HospitalComment on above:Performed By: #### [id number] #### [facility] [address] [place] [address]WIB [Catalytic activity/Vol]66 Int._Unit/ZHjsfua95-46LqehqsUniversity Hospitals Beachwood Medical CenterComment on above:Performed By: #### [id number] #### [facility] [address] [place] [address]VYK No additional P-5'-P [Catalytic activity/Vol]16 Int._Unit/L Normal6-46[facility] CenterComment on above:Performed By: #### [id number] #### [facility] [address] [place] [address] 85[address]OBH [Catalytic activity/Vol]15 Int._Unit/LNormal5-43[facility] CenterComment on above:Performed By: #### [id number] #### [facility] [address] [place] [address]Tahgwyzfe [Mass/Vol]0.3 mg/dLNormal0.0-1.1FHighland District HospitalComment on above:Performed By: #### [id number] #### [facility] [address] [place] [address]Ywhbcaowv.direct [Mass/Vol]0.0 mg/dLNormal0.0-0.4FHighland District HospitalComment on above:Performed By: #### [id number] #### [facility] [address] [place] [address]Bdilrffdj.indirect [Mass or moles/Vol]0.3 mg/dLNormal0.1-0.9 [facility] CenterComment on above:Performed By: #### [id number] #### [facility] [address], [place] [address]Gkfqjxiy (S) [Mass/Vol]3.0 g/dLNormal1.4-4.0[facility] CenterComment on above:Performed By: #### [id number] #### [facility] [address], [place] [address]Mvdbycm [Mass/Vol]7.8 g/dLNormal6.0-7.8[facility] CenterComment on above:Performed By: #### [id number] #### [facility] [address], [place] [address]Gsxatx Levelon 16-91-8242Ogcwon [Catalytic activity/Vol]26 U/L Pgmmth65-18JunyxoUniversity Hospitals Beachwood Medical CenterComment on above:Performed By: #### [id number] #### [facility] [address], [place] [address]Fftecyv Educationon 54-70-3129Jqkkszx EducationCardiovascular Hypertension, Adult Hypertension is another name [...] Keep all follow-up visits. Medicines ? Take erpn-wae-nvmtese and prescription medicines only as told by [...] blood. ? For m (more content not included)...[facility] HospitalRAD - Preliminary Cat Scan Reporton 06-21-0836GRR - Preliminary Cat Scan Report [id number]#1.00TIFFNormalCherrington HospitalEROLOGYOrdered By: Amanda Siegel on 15-51-4328Qote HCG ( test) QlNegative (09/28/23 6:59 PM)[facility] Man SeroUA with Cult Rflxon 28-99-4513Ffqbkyiiz Ql (U)NegativeNormalNegativeUniversity Hospitals Beachwood Medical CenterComment on above:Performed By: #### [id number] ####Braulio [facility] Zbegkhwnbf[address]kom[address] AveNorhealthalliance hospital: mary’s avenue campusk, [place]Vdpehql (U)ClearNormalClearUnc Health Blue Ridge - Morgantoner [facility] Memorial HospitalComment on above:Performed By: #### [id number] ####[facility] Qhrqafigxp744 Skykom[address] AveNorwalk, [place]Kysca (U)ColorlessAbnormalYellowUniversity Hospitals Beachwood Medical CenterComment on above:Result Comment: Microscopic readings are only performed on those samples that meet specific criteria set forth by [facility] Laboratory.Performed By: #### [id number] ####[place] [address] Skykom[address] AveNmanchester memorial hospital, [id number] Ql (U)Negative NormalNegativeUniversity Hospitals Beachwood Medical CenterComment on above:Performed By: #### [id number] ####[address] AveNorhartford hospital, [place] [address]Vmhcvmidgp Auto test strip (U) [Mass/Vol]NegativeNormalNegativeUniversity Hospitals Beachwood Medical CenterComment on above:Performed By: #### [id number] ####[place] [address] AveNorhartford hospital, [place]Emlxttz Auto test strip Ql (U)NegativeNormalNegativeUniversity Hospitals Beachwood Medical CenterComment on above: Performed By: #### [id number] ####[place] [address] AveNorhartford hospital, RZ[address]Vwcrulkyb esterase Auto test strip Ql (U)Negative NormalNegativeUniversity Hospitals Beachwood Medical CenterComment on above:Performed By: #### [id number] ####[facility] Wznazngeer770 Sky[address] AveNorhartford hospital, [place] [address]Exrxerb Auto test strip Ql (U)NegativeNormalNegativeUniversity Hospitals Beachwood Medical CenterComment on above:Performed By: #### [id number] ####[place] [address]Norwalk, [place]pR (U)7.0 [pH]Invalid Interpretation Code5.0-9.0[facility] CenterComment on above:Performed By: #### [id number] ####[facility] Bfsifxhwch449 [facility], RF[address]Varrtlo Ql (U)NegativeNormalNegativeUniversity Hospitals Beachwood Medical CenterComment on above:Performed By: #### [id number] ####[facility] Sokxfxjayb574 [facility], UP[address]Swsrqgvt gravity (U) [Rel density]1.003Invalid Interpretation Code1.005-1.030[facility] Comment on above:Performed By: #### [id number] ####[address], [place]Opqsqwkbwjfn (U) [Mass/Vol]Negative NormalNegativeUniversity Hospitals Beachwood Medical CenterComment on above:Performed By: #### [id number] ####[place] [address] [facility] [place] [address]Dpos of Urine collection methodClean [facility] Comment on above:Performed By: #### [id number] ####[place] [address] [facility] [id number] By: SYSTEM SYSTEM on 68-73-5602Wabfcshfd Ql (U)NegativeNormalNegativemg/dLMERCY HOSPITAL [facility] [place] UA Auto SSClarity (U) Clear (09/28/23 7:35 PM)NormalClearFTMC UA Auto SSColor (U)Colorless 1 *ABN* (09/28/23 7:35 PM)Invalid Interpretation CodeYellowMERCY HOSPITAL WATONGA [facility] [place] UA Auto SSComment on above:Interpretive Data: Microscopic readings are only performed on those samples that meet specific criteria set forth by [facility] Laboratory.Glucose Ql (U)NegativeNormalNegativemg/dLFT UA Auto SSHemoglobin Auto test strip (U) [Mass/Vol]NegativeNormalNegativemg/dLFT UA Auto SSKetones Auto test strip Ql (U)NegativeNormalNegativemg/dLFT UA Auto SSLeukocyte esterase Auto test strip Ql (U)NegativeNormalNegativeLeu/uLFT UA Auto SS Nitrite Auto test strip Ql (U)NegativeNormalNegativemg/dLFT UA Auto SSpH (U) 7.0 *NA* (09/28/23 7:35 PM)Invalid Interpretation Code5.0 - 9.0[facility] UA Auto SSProtein Ql (U)NegativeNormalNegativemg/dLMERCY HOSPITAL [facility] [place] UA Auto SSSpecific gravity (U) [Rel density] 1.003 *NA* (09/28/23 7:35 PM)Invalid Interpretation Code1.005 - 1.030[facility]A Auto SS Urobilinogen (U) [Mass/Vol]NegativeNormalNegativemg/dLMERCY HOSPITAL [facility] [place] UA Auto SSURINALYSIS Ordered By: Bijan Miramontes on 93-62-5681QP Spec DescClean Catch (09/28/23 7:35 PM)NormalMERCY HOSPITAL [facility]ATONGA [facility] [place] UA Auto SS egFRon 97-06-2744jKXL41 mL/min/1.73 q5Xwwusv>=59Fisher [facility] HospitalComment on above:Order Comment: Order added by Discern Expert.Performed By: #### [id number] #### Braulio [facility] Laboratory [address], [place] [address]Xlvsmtmlgl Visit Summaryon 79-41-2243Imtfykjdkn Visit Summary SANNA RENDON :1985 Visit Date:08/03/2023 [...] (Vitamin D) fluticasone nasal (Flonase 0.05 mg/inh [place]) metformin (MetFORMIN (Eqv-Glucophage XR) 500 mg oral [...] PED When: In 4 months Where: [address] [place] [address]- You Need to Complete the Following HgbA1c, [...] Unchanged fluticasone nasal (Flonase 0.05 mg/ inh [place]) 2 Sprays Nasal Inhalation Every day each [...] ? Walking a mile (more content not included)...[facility] Medicine Office/Clinic Noteon 35-08-6617Faxmfl Medicine Office/Clinic NoteChief Complaint Wants to discuss [...] comfortable with plan. PNMV Ordered: A1c POC 29713 Total time spent preparing the chart, conducting [...] FAAFP, FAM, PED In 4 months [address] [facility], [facility] [place] [address]- Additional Instructions: Patient Education Exercising to Lose Weight Problem Lis (more content not included)...[facility] Comment on above:Result Comment: Electronically Signed By: Penelope CASAS DO, FAAFP\.br\Date and Time Signed: 08/03/23 12:19 EDTPPsychiatric 08-03-2023 Patient EducationPhysical Medicine and Rehabilitation Exercising [...] your health care provider or diet and cnc specialist (dietitian). This may include: ? Eating [...] regular exercise is e (more content not included)...[facility] HospitalPatient Educationon 92-74-0190Pmdthbl EducationEndocrinology Blood Glucose Monitoring, Adult Monitoring your [...] meter by following in (more content not included)...[facility] HospitalLab Reportson 55-02-9278Ayd Reports [id number] CenterConsultation Noteon 56-54-0454Xiixnpfbusui Note [id number]#1.00[facility] CenterAmbulatory Visit Summaryon 67-38-3747Jnyhqqrzyb Visit Summary SANNA RENDON :1985 Visit Date:05/25/2023 [...] EDT With: Penelope CASAS DO, FAAFP [facility] Office/Clinic Noteon 00-39-8255Raaqzf Medicine Office/Clinic NoteChief Complaint States she is [...] Benadryl. 2. Dyshidrotic eczema (L30.1: Dyshidrosis [pompholyx]) Ntgz-rnt-zibritp hydrocortisone cream 1% or 2.5% as directed. [...] FAAFP, FAM, PED In 2 months [address] [facility], [place] [address]- Additional Instructions: Patient Education Eustachian Tube Dysfunction Dyshidrotic Eczema Allergies, Tadeo (more content not included)...[facility] Comment on above:Result Comment: Electronically Signed [...] ears completely after. General instructions ? Take wlzi-hok-tbdagob and prescription medicines only as told by [...] cases are treated w (more content not included)...[facility] Urineon 37-67-1251Bnegkoft identified Cx Nom (U) Microbiology PROCEDURE: Urine Culture [R1] SOURCE: U Random BODY SITE: COLLECTED DATE/TIME: 05/01/2023 18:00 EST RECEIVED DATE/TIME: 05/01/2023 18:08 EST START DATE/TIME: 05/01/2023 18:08 EST FREE TEXT SOURCE: Penelope CASAS DO, FAAFP, DO, FAAFP, Penelope Tony FINAL REPORTS Final Report [] Verified Date/Time: 05/03/2023 07:00 EST <10,000 cfu/ml Mixed skin contaminants Performing Locations R1: This test was performed at: [facility], [address] [place] [address], [address]- , [place], NumsuaHrchrdAshtabula General HospitalComment on above:Performed By: #### [id number] ####[address] [address]Rjzwzrs for Treatmenton 32-23-6425Vywtfpa for Treatment [id number]#1.00TIFFTriHealth Bethesda North HospitalUrinalysison 65-15-0219Znimlmgg LM Ql (Urine sed)TRACENormalTraceUniversity Hospitals Beachwood Medical CenterComment on above:Performed By: #### [id number] ####[address] [address]Lzicfgomo Ql (U) NegativeNormalNegativeUniversity Hospitals Beachwood Medical CenterComment on above:Performed By: #### [id number] ####[address] [address]Cwzelra (U)CLOUDYAbnormalClearFHighland District HospitalComment on above:Performed By: #### [id number] ####[address] [address]Zljoy (U)YELLOWNormalYellowUniversity Hospitals Beachwood Medical CenterComment on above:Performed By: #### [id number] ####[address] [address]Kvzjtwhwho cells.squamous LM.HPF (Urine sed) [#/Area]/[HPF]Normal0-2FHighland District HospitalComment on above:Performed By: #### [id number] ####[address] [address]Cqzaevq Test strip (U) [Mass/Vol]NegativeNormal NegativeUniversity Hospitals Beachwood Medical CenterComment on above:Performed By: #### [id number] ####[address] [address] Hemoglobin Ql (U)NegativermalNegPeoples HospitalComment on above:Performed By: #### [id number] ####[address] [address]Fmdnoiz (U) [Mass/Vol]NegativeNormalNegativeUniversity Hospitals Beachwood Medical CenterComment on above:Performed By: #### [id number] ####[address] [address] Duncan.plasma/Duncan.RBC (Bld) [Mass ratio]7-1Yvcdnr9-5Gfzmqd [facility] HospitalComment on above:Performed By: #### [id number] ####[address] [address]Opbrezw Ql (U)NegativeNormal [facility] SpringfieldComment on above:Performed By: #### [id number] ####[address] [address]kF (U)6.0 [pH]Invalid Interpretation Code5.0-9.0[facility] Medical CenterComment on above:Performed By: #### [id number] ####[address] [address]Qmpojfl (U) [Mass/Vol]NegativeNormal NegativeUniversity Hospitals Beachwood Medical CenterComment on above:Performed By: #### [id number] ####[address] [address] Specific gravity (U) [Rel density]<=1.005Invalid Interpretation Code1.005-1.030 [facility] Medical CenterComment on above:Performed By: #### [id number] ####[address] [address]Ozqu of Urine collection methodClean CatchNormalUniversity Hospitals Beachwood Medical CenterComment on above:Performed By: #### [id number] ####[address], [place] [address]Jyjbylcncmsh Qn (U)0.2 {Nicole'U}/dLNormal0.0-1.0 [facility] CenterComment on above:Performed By: #### [id number] ####[facility] [address] [place], [place] [address]JPK Auto Ql (U)TRACEAbnormalNegativeUniversity Hospitals Beachwood Medical CenterComment on above: Performed By: #### [id number] ####[facility] [address] [place], [place] [address]SAE LM.HPF (Urine sed) [#/Area]8-0Xokopu4-7Wizgql [facility] HospitalComment on above:Performed By: #### [id number] ####[facility] [address] [place], [place] [address]Ijppgtrrgz Visit Summaryon 11-96-7117Roybjgoopa Visit Summary SANNA RENDON :1985 Visit Date:04/27/2023 [...] EST With: Penelope CASAS DO, FAAFP Where: [facility] Primary CareNoAshtabula [facility] CHEMISTRYOrdered By: SYSTEM SYSTEM on 48-83-8205BXZ Qn4.04 m[IU]/LNormal0.34 - 5.60 mcIU/mLRemisol ChemWhittier Rehabilitation Hospital Medicine Office/Clinic Noteon 05-95-3229Wpxqdd Medicine Office/Clinic NoteChief Complaint Since last Sunday [...] feeding. No loss of taste nor smell. [id number] while taking Glucophage XR 500 mg p.o. [...] Push fluids and Tylenol and or ibuprofen dvrd-jzr-luvufew as directed. Patient does not appear ill [...] Your BMIand weight manag (more content not included)...[facility] HospitalComment on above: Result Comment: Electronically Signed By: PRAVEEN RESENDEZ FAAFP, Penelope Tony\.br\Date and Time Signed: 04/27/23 12:53 ESTPatient Educationon 86-95-1424Afvfdqy Education Endocrinology Diabetes Mellitus and Exercise Exercising [...] plan? Your health care provider or certified professional ergonomist can help you make a plan for [...] stroke). Where to find more information ? [place] [employer]: www.diabetes.org Summary ? Exercising regularly is important for overall health, especially for people who have diabetes mellitus. ? Exercising has many health benefits. It increases muscle strength and bone density and reduces body fat and stress. It also lowers and controls blood glucose. ? Your health care provider or certified professional ergonomist can help you make an activity plan [...] provider. Document Revised: 01/12/2020 Document Reviewed: 01/12/2020 [employer] Patient Education ? 2022 [employer] Preventing Hypoglycemia Hypoglycemia occurs when the level of sugar (glucose) in the blood is too low. Hypoglycemia can happen in people who do or do not have diabetes (diabetes (more content not included)...NormalUniversity Hospitals Beachwood Medical CenterTSHon [id number] Qn 4.04 m[IU]/LNormal0.34-5.60University Hospitals Beachwood Medical CenterComment on above:Performed By: #### [id number] ####Braulio [facility] [address] [place], [place] [address]Pagvcwlllf Visit Summaryon [id number] Visit Summary SANNA RENDON :1985 Visit Date:02/15/2023 [...] PED When: In 2 months Where: [address] [place] [address]- You Need to Complete the Following HgbA1c, [...] miscarriage Suspected COVID-19 virus infection Vaginal tabitha [facility] Medicine Office/Clinic Noteon [id number] Medicine Office/Clinic NoteChief Complaint States since Sunday her right ear is draining and is a little painful History of Present Illness [employer] Flat[employer] draining since Sunday evening and a little [...] pain of ear shake well before using, [facility] 1985, 168, cm, 02/15/23 9:49:00EDT, Height/Length [...] in , unspecified control) 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 2. 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 Follow these instructions at home: ? Use [...] Reviewed: 02/11/2020 Elsevier Patient Education ? 2022 [employer] Infectious Disease Otitis Externa Otitis externa [...] you start to feel better. ? Take qdba-deb-nyihvad and prescription medicines only as told by your doctor. ? Avoid getting water in your ears as told by your doctor. You may be told to avoid swimming or water sports for a few days. ? Keep all follow-up visits. How is this prevented? ? Keep your ears dry. Use the corner o (more content not included)...Normal University Hospitals Beachwood Medical CenterPatient Educationon [id number] Education Immunology Fatigue If you have fatigue, [...] these instructions at home: Medicines ? Take gqwb-tlr-zzwjxhy and prescription medicines only as told by [...] the National Suicide Prevention Lifeline at or 384. This is open 24 hours a day. ? Text the Crisis Text Line at 642539. Summary ? If you have fatigue, you [...] provider. Document Revised: 02/06/2022 Document Reviewed: 02/06/2022 [employer] Patient Education ? 2022 [employer] Urology Urodynamic Testing Urodynamic tests are [...] urine (inco (more content not included)...NormalUniversity Hospitals Beachwood Medical CenterCHEMISTRYOrdered By: SYSTEM SYSTEM on 28-90-1791Tnna T4 [Mass/Vol]0.58 ng/dLNormal0.58 - 1.64 ng/dLFTMC RemisolTSH Qn3.35 m[IU]/LNormal0.34 - 5.60 mcIU/mLFTMC RemisolAlbumin [Mass/Vol]4.5 g/dLNormal3.3 - 5.0 gm/dLFTMC Remisol Albumin/Globulin [Mass ratio]1.4 {ratio}Normal1.1 - 2.2FT[facility] RemisolALP [Catalytic activity/Vol]62 [iU]/tXhvblq26 - 98 Int._Unit/LFTMC RemisolALT No additional P-5'-P [Catalytic activity/Vol]27 [iU]/dNormal6 - 46 Int._Unit/LFTMC RemisolAnion gap [Moles/Vol]13 mmol/LNormal6 - 16 mEq/LFTMC RemisolAST [Catalytic activity/Vol]21 [iU]/dNormal5 - 43 Int._Unit/LFTMC RemisolBilirubin [Mass/Vol]0.3 mg/dLNormal0.0 - 1.1 mg/dLFTMC RemisolCalcium [Mass/Vol]9.6 mg/dL Normal8.9 - 11.1 mg/dLFTMC RemisolChloride [Moles/Vol]104 mmol/HLuwluu339 - 111 mmol/LFTMC RemisolCO2 [Moles/Vol]25 mmol/DKckkdo56 - 31 mmol/LFTMC Remisol Cobalamin (Vitamin B12) [Mass/Vol]211 pg/sNXailmw88 - 1500 pg/mLFTMC Remisol Creatinine [Mass/Vol]0.9 mg/dLNormal0.5 - 1.3 mg/dLFTMC RemisolFerritin [Mass/Vol]38 ng/kQTibfjy99 - 307 ng/mLFTMC RemisolFolate [Mass/Vol]13.5 ng/mL Normal>=6.7ng/mLFTMC RemisolGFR/1.73 sq M.predicted among non-blacks MDRD (S/P/Bld) [Vol rate/Area]85 mL/min/1.73 n2Qvmqfu>=59mL/min/1.73 m2FTMC Chem S Globulin (S) [Mass/Vol]3.3 g/dLNormal1.4 - 4.0 gm/dLFTMC RemisolGlucose [Mass/Vol]93 mg/wXInyoho70 - 199 mg/dLFTMC RemisolIron [Mass/Vol]56 ug/dLNormal 35 - 153 mcg/dLFTMC RemisolIron binding capacity [Mass/Vol]395 ug/eEWbusxm363 - 400 mcg/dLFTMC RemisolPotassium [Moles/Vol]3.7 mmol/LNormal3.5 - 5.3 mmol/LFTMC RemisolProtein [Mass/Vol]7.8 g/dLNormal6.0 - 7.8 gm/dLFTMC RemisolSodium [Moles/Vol]138 mmol/NKgfpes971 - 145 mmol/LFTMC RemisolTransferrin [Mass/Vol]282 mg/lTVtvlhm362 - 370 mg/dLFTMC RemisolUrea nitrogen [Mass/Vol]11 mg/dLNormal5 - 21 mg/dLFTMC RemisolUrea nitrogen/Creatinine [Mass ratio]12 mg/ntJaxdhc49 - 20 [facility] RemisolHEMATOLOGYOrdered By: SYSTEM SYSTEM on 37-06-3714Zasvspjix/100 WBC (Bld)0.6 %Normal0.0 - 2.0 %[facility] HemeAutoSSBasophils/Leukocytes Auto (Bld) [Pure # fraction]0.0 E9/LNormal0.0 - 0.2 E9/LFTMC HemeAutoSSEosinophils/100 WBC (Bld) 1.1 %Normal0.0 - 8.0 %[facility] HemeAutoSSEosinophils/Leukocytes Auto (Bld) [Pure # fraction]0.1 E9/LNormal0.0 - 0.5 E9/LFTMC HemeAutoSSLymphocytes/100 WBC (Bld) 42.4 %Kmzmae12.0 - 50.0 %[facility] HemeAutoSSLymphocytes/Leukocytes Auto (Bld) [Pure # fraction]3.4 E9/LNormal1.0 - 4.0 E9/LFTMC HemeAutoSSMonocytes/100 WBC (Bld)8.0 %Normal4.0 - 14.0 %[facility] HemeAutoSSMonocytes/Leukocytes Auto (Bld) [Pure # fraction]0.6 E9/LNormal0.2 - 1.0 E9/LFTMC HemeAutoSSNeutrophils/100 WBC (Bld) 47.9 %Uczvur80.0 - 75.0 %[facility] HemeAutoSSNeutrophils/Leukocytes Auto (Bld) [Pure # fraction]3.8 E9/LNormal2.0 - 7.5 E9/LFTMC HemeAutoSSHEMATOLOGYOrdered By: Trena Castro on 98-39-6182Hdbysnjoahh distribution width (RBC) [Ratio]14.5 % High10.9 - 14.2 %[facility] HemeAutoSSHematocrit (Bld) [Volume fraction]37.4 %Normal 34.0 - 46.0 %[facility] HemeAutoSSHemoglobin (Bld) [Mass/Vol]13.1 g/yNTaicuv48.0 - 16.0 gm/dLFTMC HemeAutoSSMCH (RBC) [Entitic mass]30.6 oiCmwoif13.0 - 34.0 pgFTMC HemeAutoSSMCHC (RBC) [Mass/Vol]34.9 g/oJRdlrsi41.4 - 36.0 gm/dLFTMC HemeAutoSS MCV (RBC) [Entitic vol]87.7 mCPckwfn60.0 - 100.0 fLFTMC HemeAutoSSPlatelet mean volume (Bld) [Entitic vol]8.2 fLNormal6.4 - 10.8 fLFTMC HemeAutoSSPlatelets (Bld) [#/Vol]334.0 E9/QRrrqdg885.0 - 500.0 E9/LFTMC HemeAutoSSRBC (Bld) [#/Vol] 4.3 E12/LNormal4.3 - 5.9 E12/LFTMC HemeAutoSSWBC corrected for nucl RBC Auto (Bld) [#/Vol]7.9 E9/LNormal4.0 - 11.0 E9/LFTMC HemeAutoSSCHEMISTRYOrdered By: SYSTEM SYSTEM on 80-01-3254Gxag T4 [Mass/Vol]0.58 ng/dLNormal0.58 - 1.64 ng/dL [facility] RemisolTSH Qn3.10 m[IU]/LNormal0.34 - 5.60 mcIU/mLFTMC RemisolCHEMISTRY Ordered By: Valeir German on 29-07-5992RlR5f (Bld) [Mass fraction]5.9 %Normal <=5.9%[facility] ChemAutoSSCHEMISTRYOrdered By: SYSTEM SYSTEM on 30-56-0593Godd T4 [Mass/Vol]0.71 ng/dLNormal0.58 - 1.64 ng/dLFTMC RemisolTSH Qn3.77 m[IU]/LNormal 0.34 - 5.60 mcIU/mLFTMC RemisolCBC AUTO DIFFon 40-09-5817LUQW #0.0 103/ulNormal 0.0-0.1The [facility] HospitalComment on above:Performed By: #### [id number] #### [facility] [address] [address] [address] Edward GillBasophils/100 WBC (Bld)0.4 %Normal0.2-2.0[facility] Comment on above:Performed By: #### HIV12 #### [facility] [address] [address] [address] Edward Traore #0.1 103/ulNormal0.0-0.7The [facility] HospitalComment on above: Performed By: #### [id number] #### [facility] [address] [address] [address] Edward Calhounosinophils/100 WBC (Bld)1.3 %Normal0.9-7.0[facility] Comment on above:Performed By: #### HIV12 #### [facility] [address] [address] [address] Edward Calhounrythrocyte distribution width (RBC) [Ratio]16.6 %Critically high 11.0-15.0The [facility] HospitalComment on above:Performed By: #### HIV12 #### [facility] [address] [address] [address] Edward GillHematocrit (Bld) [Volume fraction]30.2 %Critically low36.0-48.0 The [facility] HospitalComment on above:Performed By: #### HIV12 #### [facility] [address] [address] [address] Edward GillHemoglobin (Bld) [Mass/Vol]10.5 g/dLCritically low12.0-16.0The [facility] HospitalComment on above:Performed By: #### HIV12 #### [facility] [address] [place] [address] Dr. Edward Ray #0.04 10e3/ulCritically high0.00-0.03The [facility] Comment on above:Performed By: #### HIV12 #### [facility] [address] [place] [address] Dr. Edward Ray %0.4 %Normal0.0-0.5The [facility] HospitalComment on above: Performed By: #### HIV12 #### [facility] [address] [place] [address] Dr. Edward Velásquez #3.1 103/ulNormal1.2-3.8The [facility] HospitalComment on above:Performed By: #### HIV12 #### [facility] [address] [place] [address] Dr. Edward Alvarezhocytes/100 WBC (Bld)34.2 %Ntxvoc20.5-60.0[facility] Medical CenterComment on above:Performed By: #### HIV12 #### [facility] [address] [place] [address] Dr. Edward SimmonsUAL DIFF REQNONormalThe [facility] HospitalComment on above: Performed By: #### HIV12 #### [facility] [address] [place] [address] Dr. Edward June (RBC) [Entitic mass]30.3 baCpbfrz54.7-34.0The [facility] HospitalComment on above:Performed By: #### HIV12 #### [facility] [address] [place] [address] Dr. Edward June (RBC) [Mass/Vol]34.8 g/xECukkqr26.9-35.2The [facility] HospitalComment on above:Performed By: #### HIV12 #### [facility] [address] [place] [address] Dr. Edward Desai (RBC) [Entitic vol]87.0 nVWjrzbi52.0-99.0The [facility] HospitalComment on above:Performed By: #### HIV12 #### [facility] [address] [place] [address] Dr. Edwadr Rosas #0.7 103/ulNormal0.3-0.8The [facility] HospitalComment on above:Performed By: #### HIV12 #### [facility] [address] [place] [address] Dr. Edward Ignacioocytes/100 WBC (Bld)7.5 %Normal1.7-12.0[facility] Comment on above:Performed By: #### HIV12 #### [facility] [address] [place] [address] Dr. Edward Gueavra #5.0 103/ulNormal1.4-6.5The [facility] HospitalComment on above:Performed By: #### HIV12 #### [facility] [address] [place] [address] Dr. Edward Moralesutrophils/100 WBC (Bld)56.2 %Btejwx77.0-75.0The [facility] HospitalComment on above:Performed By: #### HIV12 #### [facility] [address] [place] [address] Dr. Edward Serranolet mean volume (Bld) [Entitic vol]9.8 fLNormal9.5-13.5The [facility] HospitalComment on above:Performed By: #### HIV12 #### [facility] [address] [place] [address] Dr. Edward GillPLT238 103/eoHxltlg890-247Fox [facility] HospitalComment on above: Performed By: #### HIV12 #### [facility] [address] [place] [address] Dr. Edward GillRBC3.47 106/ulCritically low4.20-5.40The [facility] HospitalComment on above:Performed By: #### HIV12 #### [facility] [address] [place] [address] Dr. Edward GillWBC9.0 103/ulNormal4.0-11.0The [facility] HospitalComment on above: Performed By: #### HIV12 #### [facility] [address] [place] [address] Dr. Edward GillFETAL SCREENon 49-96-0450ADOGP SCREENNegativeRegency Hospital ToledoComment on above:Performed By: #### FETSCRN #### [facility] [address] [place] [address] Dr. Edward GillDIRECT COOMBSon 21-10-0219GVCSHK COOMBSNegSelect Medical OhioHealth Rehabilitation HospitalComment on above:Performed By: #### DIRCMB #### [facility] [address] [place] [address] Dr. Edward GillPOINT OF CARE GLUCOSEon 41-95-9315Iodvfpj [Mass/Vol]117 mg/dL Critically movo55-017Jim [facility] HospitalComment on above:Performed By: #### POCGLUC ####[facility] [address] [place], [place] [address]Dr. Edward GillTYPE AND SCREENon 09-69-3150ROSX AND SCREENNegativeRegency Hospital ToledoComment on above:Performed By: #### TNS #### [facility] [address] [place] [address] Dr. Edward GillCBC AUTO DIFFon 15-50-7445BGCD #0.0 103/ulNormal0.0-0.1The [facility] HospitalComment on above:Performed By: #### HIV12 #### [facility] [address] [place] [address] Dr. Edward GillBasophils/100 WBC (Bld)0.2 %Normal0.2-2.0The [facility] Comment on above:Performed By: #### HIV12 #### [facility] [address] [place] [address] Dr. Edward Traore #0.0 103/ulNormal0.0-0.7The [facility] HospitalComment on above: Performed By: #### HIV12 #### [facility] [address] [place] [address] Dr. Edward Calhounosinophils/100 WBC (Bld)0.5 %Critically low0.9-7.0The [facility] HospitalComment on above:Performed By: #### HIV12 #### [facility] [address] [place] [address] Dr. Edward Calhounrythrocyte distribution width (RBC) [Ratio]16.1 %Critically high 11.0-15.0The [facility] HospitalComment on above:Performed By: #### HIV12 #### [facility] [address] [place] [address] Dr. Edward GillHematocrit (Bld) [Volume fraction]32.1 %Critically low36.0-48.0 The [facility] HospitalComment on above:Performed By: #### HIV12 #### [facility] [address] [place] [address] Dr. Edward GillHemoglobin (Bld) [Mass/Vol]11.7 g/dLCritically low12.0-16.0The [facility] HospitalComment on above:Performed By: #### HIV12 #### [facility] [address] [place] [address] Dr. Edward Ray #0.04 10e3/ulCritically high0.00-0.03The [facility] Comment on above:Performed By: #### HIV12 #### [facility] [address] [place] [address] Dr. Edward Ray %0.5 %Normal0.0-0.5The [facility] HospitalComment on above: Performed By: #### HIV12 #### [facility] [address] [place] [address] Dr. Edward Velásquez #2.4 103/ulNormal1.2-3.8The [facility] HospitalComment on above:Performed By: #### HIV12 #### [facility] [address] [place] [address] Dr. Edward Ronmphocytes/100 WBC (Bld)27.2 %Ulfows09.5-60.0The [facility] HospitalComment on above:Performed By: #### HIV12 #### [facility] [address] [place] [address] Dr. Edward SimmonsUAL DIFF REQNONormalThe [facility] HospitalComment on above: Performed By: #### HIV12 #### [facility] [address] [place] [address] Dr. Edward De Leon (RBC) [Entitic mass]30.0 cwJuhqev76.7-34.0The [facility] HospitalComment on above:Performed By: #### HIV12 #### [facility] [address] [place] [address] Dr. Edward June (RBC) [Mass/Vol]36.4 g/dLCritically high29.9-35.2The [facility] HospitalComment on above:Performed By: #### HIV12 #### [facility] [address] [place] [address] Dr. Edward Desai (RBC) [Entitic vol]82.3 fMAwkybe09.0-99.0The [facility] HospitalComment on above:Performed By: #### HIV12 #### [facility] [address] [place] [address] Dr. Edward Rosas #0.7 103/ulNormal0.3-0.8The [facility] HospitalComment on above:Performed By: #### HIV12 #### [facility] [address] [place] [address] Dr. Edward Ignacioocytes/100 WBC (Bld)7.7 %Normal1.7-12.0The [facility] Comment on above:Performed By: #### HIV12 #### [facility] [address] [place] [address] Dr. Yilan ChangNEUT #5.5 103/ulNormal1.4-6.5The [facility] HospitalComment on above:Performed By: #### HIV12 #### [facility] [address] [place] [address] Dr. Edward Moralesutrophils/100 WBC (Bld)63.9 %Hilcpz92.0-75.0The [facility] HospitalComment on above:Performed By: #### HIV12 #### [facility] [address] [place] [address] Dr. Edward GillPlatelet mean volume (Bld) [Entitic vol]10.0 fLNormal9.5-13.5The [facility] HospitalComment on above:Performed By: #### HIV12 #### [facility] [address] [place] [address] Dr. Edward GillPLT274 103/suOfgxpl719-322Rsl [facility] HospitalComment on above: Performed By: #### HIV12 #### [facility] [address] [place] [address] Dr. Edward GillRBC3.90 106/ulCritically low4.20-5.40The [facility] HospitalComment on above:Performed By: #### HIV12 #### [facility] [address] [place] [address] Dr. Edward GillWBC8.7 103/ulNormal4.0-11.0The [facility] HospitalComment on above: Performed By: #### HIV12 #### [facility] [address] [place] [address] Dr. Edward GillCovid-19 PCR (CVDMASSACHUSET[facility])on 15-69-8362ZVIM-CoV-2 (COVID-19) RNA LELO+probe Ql (Unsp spec)Not detectedNormalNOT DETECTEDThe [facility] Comment on above:Result Comment: When diagnostic [...] for this test is supported by the Bus System Operator of Health and Human Service's declaration [...] longer be used).Performed By: #### HIV12 #### [facility] [address] [address] [address] Edward GillDRUG SCREEN RAPID (URINE)on 25-06-8222NWTRhirlgtvInueplWWTBEHEN [facility] County Medical CenterComment on above:Performed By: #### DRUGRPD ####[facility] [address] [address] Edward GillBAR NegativeNormalNEGATIVEBrecksville Va / Crille Hospital HospitalComment on above:Performed By: #### DRUGRPD ####[facility] [address] [address]Dr. Edward GillBUPNegativeNormalNEGATIVEAshtabula County Medical CenterComment on above:Performed By: #### DRUGRPD ####[facility] [address] [address]Dr. Edward GillBZONegativeNormalNEGATIVEAshtabula County Medical CenterComment on above:Performed By: #### DRUGRPD ####[facility] [address] [address]. Edward GillCOCNegative NormalNEGATIVEAshtabula County Medical CenterComment on above:Performed By: #### DRUGRPD ####[facility] [address]uf[address] [place], [place] [address]Dr. Edward GillCUT-OFFSSEE BELOWRegency Hospital ToledoComment on above:Result Comment: AMP (Amphetamine): 500ng/mL, BAR (Barbituates): 200 ng/mL, BZO (Benzodiazepines): 150 ng/mL, BUP (Buprenorphine): 10 ng/mL, INDIA (Cocaine): 150 ng/mL, mAMP (Methamphetamine): 500 ng/mL, MTD (Methadone): 200 ng/mL, OPI (Opiates): 100 ng/mL, OXY (Oxycodone): 100 ng/mL, PCP (Phencyclidine): 25 ng/mL, PPX (Propoxyphene): 300 ng/mL, THC (Cannabinoids): 50 ng/mL, TCA (Trycyclic Antidepressants): 300 ng/mLPerformed By: #### DRUGRPD ####[facility] [address] [place], [place] [address]Dr. Edward ChangDRUG CUT HEADERDRUG CLASS TEST SYSTEM CUT-OFF CONCENTRATIONS ARE FOLLOWS:NormalThe [facility]ett HospitalComment on above:Performed By: #### DRUGRPD ####[facility] Z[address] [place], [place] [address]Dr. Edward ChangmAMP NegativeNormalNEGATIVEBrecksville Va / Crille Hospital HospitalComment on above:Performed By: #### DRUGRPD ####[facility] [address] [place], [place] [address]Dr. Yilan ChangMTDNegativeNormalNEGATIVEBrecksville Va / [facility] Hospital HospitalComment on above:Performed By: #### DRUGRPD ####[facility] [address] [place], [place] [address]Dr. Yilan ChangOPINegativeNormalNEGATIVEBrecksville [facility] HospitalComment on above:Performed By: #### DRUGRPD ####[facility] [address] [place], [place] [address]Dr. Yilan ChangOXYNegative NormalNEGATIVEBrecksville Va / Crille Hospital HospitalComment on above:Performed By: #### DRUGRPD ####[facility] [address]unqfaprev[address] [place], [place] [address]Dr. Yilan ChangPCPNegativeNormalNEGATIVEBrecksville Va / [facility] Hospital HospitalComment on above: Performed By: #### DRUGRPD ####[facility] Epfveeoizx[address] [place], [place] [address]Dr. Yilan ChangPPXNegativeNormalNEGATIVEBrecksville Va / [facility] Hospital HospitalComment on above:Performed By: #### DRUGRPD ####[facility] [address] [address]Dr. Edward GillTCANegative NormalNEGATIVEAshtabula County Medical CenterComment on above:Performed By: #### DRUGRPD ####[facility] [address] [address]. Edward GillTHCNegativeNormalNEGATIVEAshtabula County Medical CenterComment on above: Performed By: #### DRUGRPD ####[facility] [address] [id number]. Edward Sherwood PREG BIOPHY W NON STRESSon 61-74-9000GW PREG BIOPHY W NON STRESSEXAMINATION: US PREG [...] Electronically authenticated by: HUMERA KIM Date: 2022-05-06 19:05[facility] [place] PREG BIOPHY W NON STRESSon 74-78-1180KE PREG BIOPHY W NON STRESSEXAMINATION: US PREG [...] Electronically authenticated by: ANGIE GALDAMEZ Date: 2022-05-01 16:16[facility] B STREP CULTUREon 04-23-2022. agalactiae [...] Tetracycline >=16 R F Vancomycin =0.5 S FNormalAshtabula County Medical CenterComment on above:Performed By: #### GBSCX ####[facility] [address] [place], [place] [address]Yb. Edward GillUS PREG BIOPHY W NON STRESSon 68-39-2006NJ PREG BIOPHY W NON STRESSEXAMINATION: US PREG [...] Electronically authenticated by: HUMERA KIM Date: 2022-04-17 17:[address] [place] [address] PREG GROWTHon 65-97-3723PQ PREG GROWTHEXAMINATION: US PREG GROWTH HISTORY: Gestational [...] Electronically authenticated by: HUMERA KIM Date: 2022-04-17 16:49[facility] [place] PREG BIOPHY W NON STRESSon 04-93-0195QX PREG BIOPHY W NON STRESSEXAMINATION: US PREG [...] Electronically authenticated by: HUMERA KIM Date: 2022-04-12 08:56[facility] Hospital ToledoGLUCOSE, BLOOD (POC)on 19-22-8160Nfxveow [Mass/Vol]106 mg/dL Ytcjypwq40 - 99 mg/dLMercy Health Tiffin Hospital PREG BIOPHY W NON STRESSon 93-79-7501RI PREG BIOPHY W NON STRESSEXAMINATION: US PREG [...] Electronically authenticated by: HUMERA KIM Date: 2022-04-01 16:08[facility] [place] PREG BIOPHY W NON STRESSon [id number] PREG BIOPHY W NON STRESSEXAMINATION: US PREG [...] Electronically authenticated by: HUMERA KIM Date: 2022-03-27 08:54NoAdena Regional Medical CenterUS PREG GROWTHon 24-92-4407SW PREG GROWTHEXAMINATION: US PREG GROWTH HISTORY: Maternal [...] Electronically authenticated by: HUMERA KIM Date: 2022-03-17 06:04[facility] Hospital ToledoTSHon 70-33-5819LFG8.586 uIU/mLNormal0.358-3.740The [facility] HospitalComment on above:Performed By: #### HIV12 #### [facility] [address] [place] [address] Dr. Edward GillTYPE AND SCREENon 32-91-4088CLKY AND SCREENNegativeRegency Hospital ToledoComment on above:Performed By: #### TNS #### [facility] [address] [place] [address] Dr. Edward GillPAP ACOG PANEL 2: 30 to 65on 02-21-2022..NormalThe [facility] HospitalComment on above:Result Comment: Performed at: WBPerformed By: #### [id number] ####[facility] [address]jl[address] [place], [place] [address]DrLazara Koenig Gdln ACOG Egfjbhz90-19NmbhnwGptOhioHealth Mansfield Hospital on above:Performed By: #### [id number] ####[facility] Rcctgvndhc[address] [place], [place] [address]Dr. Edward GillDIAGNOSIS:CommentCleveland Clinic Children's Hospital for Rehabilitation on above:Result Comment: NEGATIVE FOR INTRAEPITHELIAL LESION OR MALIGNANCY. Performed at: WBPerformed By: #### [id number] ####[facility] [id number] [address] [place], [place] [address]Dr. Edward GillHPV AptimaNegativeNormal NegativeThe [facility] on above:Result Comment: This nucleic acid amplification test detects fourteen high-risk HPV types (16,18,31,33,35,39,45,51,52,56,58,59,66,68) without differentiation. Performed at: =GPerformed By: #### [id number] ####[facility] Txsvfgymxj[address] [place], [place] [address]Dr. Edward GillMethodology:CommentCleveland Clinic Children's Hospital for Rehabilitation on above:Result Comment: This liquid based ThinPrep(R) pap test was screened with the use of an image guided system. Performed at: WBPerformed By: #### [id number] ####[facility] Ortintjaxj[address] [place], [place] [address]Dr. Edward GillNote:CommentCleveland Clinic Children's Hospital for Rehabilitation on above:Result Comment: The Pap smear is a screening test designed to aid in the detection of premalignant and malignant conditions of the uterine cervix. It is not a diagnostic procedure and should not be used as the sole means of detecting cervical cancer. Both false-positive and false-negative reports do occur. . Performed at: WBPerformed By: #### [id number] ####[facility] Puysqqdmn[address] [place], [place] [address]Dr. Edward ChangPerformed by:CommentCleveland Clinic Children's Hospital for Rehabilitation on above:Result Comment: Zenaida Diop, Picker Operator (ASCP) Performed at: WBPerformed By: #### [id number] ####[facility] Zjnaawikbd[address] [place], [place] [address]Dr. Edward GillSpecimen adequacy:Comment NormalAshtabula County Medical CenterComment on above:Result Comment: Satisfactory for evaluation. No endocervical component is identified. Performed at: WBPerformed By: #### [id number] ####[facility] Nzsoxmactu[address] [place], [place] [address]Dr. Edward GillCHLAMYDIA/GONOCOCCUS LELO (SWAB/URINE/PAPon 88-67-5934Pcmueforu trachomatis, NAANegativeNormalNegativeAshtabula County Medical CenterComment on above:Performed By: #### CT/NGNA ####[facility] Kzeqeeltko[address] [place], [place] [address]Dr. Edward Gill Neisseria gonorrhoeae, NAANegativeNormalNegativeAshtabula County Medical CenterComment on above:Performed By: #### CT/NGNA ####[facility] Wfsrcepbsu[address] [place], [place] [address]Dr. Edward GillVAGINITIS/VAGINOSIS DNA PROBEon 56-48-5819Dtfmdrc speciesNegativeNormalNegativeAshtabula County Medical CenterComment on above:Performed By: #### VAGINT ####[facility] Ynhbkfimjk[address] [place], [place] [address]Dr. Edward GillGardnerella vaginalisNegativeNormal NegativeThe [facility] HospitalComment on above:Performed By: #### VAGINT ####[facility] Cgkgambrtf[address] [place], [place] [address]Dr. Edward GillTrichomonas vaginalisNegativeNormalNegativeAshtabula County Medical Center Comment on above:Performed By: #### VAGINT ####[facility] Xsdietgeoa[address] [place], [place] [address]Dr. Edward GillTSHon 52-18-6172UIZ6.536 uIU/mLNormal0.358-3.740The [facility] HospitalComment on above:Performed By: #### TSH ####[facility] Ngyctymksc6635 [place], [place] [address]Br. Edward JairoGLUCOSE - 1HRon 60-44-8021Ixlurhh [Mass/Vol]160 mg/dLCritically high 74-106Ashtabula County Medical CenterComment on above:Performed By: #### GLU1HR ####[facility] [address] [address]DrLazara Edward SepulvedaHon 46-66-7413QRE8.899 uIU/mLNormal0.358-3.740[facility] Comment on above:Performed By: #### HIV12 #### [facility] [address] [address] [address] Edward Garcia, [facility] 01-19-5664Ijiewbgakg byUltPhysicians & Surgeons HospitalComment on above:Performed By: #### AAFPM #### [address] [address] Manager Integrity: Pancho Cano MD [address] [address] Manager Integrity: Yosvany ArriagaTriHealth McCullough-Hyde Memorial HospitalComment on above:Result Comment: Results for Estimated Due Date: 05 13 22Performed By: #### AAFPM #### [address] [address] Manager Integrity: Pancho Cano MD On license of [facility] [address] [place] [address] Manager Integrity: Danelle ArriagaAshtabula County Medical CenterComment on above:Performed By: #### AAFPM #### [address] [address] Manager Integrity: Pancho Cano MD On license of [facility] [address] [place], [place] [id number] Manager Integrity: Zhang Bledsoe MDGestat Age (exact)15 wks, 2 daysNoLouis Stokes Cleveland VA Medical CenterComment on above:Performed By: #### AAFPM #### [facility] [address] [place] [address] Manager Integrity: Pancho Cano MD [address] [phone] Manager Integrity: Zhang Bledsoe MDIns Req Matern DiabGreen Cross HospitalComment on above:Performed By: #### AAFPM #### [facility] [address] [address] Manager Integrity: Pancho Cano MD [address] [address] Manager Integrity: Zhang Bledsoe MDInterpretationScreen UK HealthcareComment on above:Result Comment: (NOTE) INTERPRETATION: SCREEN NEGATIVE for open spina bifida Neural Tube Defects (NTD) Negative Pre-Test Post-Test Cutoff Neural Tube Defects Risks 1:1030 1:2690 1:250 Comments: The risk of an open neural tube defect is less than the screening cut-off. This test was developed and its performance characteristics determined by [employer]. It has not been cleared or approved by the [place] Food and Drug Administration. This test was performed in a CLIA certified laboratory and is intended for clinical purposes.Performed By: #### AAFPM #### [facility] [address] [address] Manager Integrity: Pancho Cano MD [address] [phone] Manager Integrity: Osmar Arriagaternal Age at Del36.6 yrTogus VA Medical CenterComment on above:Performed By: #### AAFPM #### [facility] [address] [address] Manager Integrity: Pancho Cano MD [address] [phone] Manager Integrity: Osmar Arriagasan luis rey hospital RaceNonblackNoLouis Stokes Cleveland VA Medical CenterComment on above:Performed By: #### AAFPM #### [facility] [address] [place] [address] Manager Integrity: Pancho Cano MD [facility] [address] [place] [address] Manager Integrity: Osmar Arriagasan luis [facility] hospital Epjhts851.0 lbs.NormalTuscarawas HospitalComment on above:Performed By: #### AAFPM #### [facility] [address] [place] [address] Manager Integrity: Pancho Cano MD [facility] [address] [place] [address] Manager Integrity: BAKARI Arriaga for AFP1.52NormBucyrus Community HospitalComment on above:Performed By: #### AAFPM #### [facility] [address] [place] [address] Manager Integrity: Pancho Cano MD [address] [address] Manager Integrity: Zhang Bledsoe MDNumber of FetusesSingletonNoLouis Stokes Cleveland VA Medical CenterComment on above:Performed By: #### AAFPM #### [facility] [address] [address] Manager Integrity: Pancho Cano MD [facility] [address] [place] [address] Manager Integrity: Smith Arriaga's AFP35 ng/mLNormalTuscarawas HospitalComment on above:Performed By: #### AAFPM #### [facility] [address] [place] [address] Manager Integrity: Pancho Cano MD On license of [facility] [address] [place] [address] Manager Integrity: NIKITA ArriagaProvidence Hospital Comment on above:Performed By: #### AAFPM #### [address] [address] Manager Integrity: Pancho Cano MD [address] [phone] Manager Integrity: Azucena ArriagaWilson Memorial HospitalComment on above:Result Comment: (NOTE) Initial sample Performed by [employer], [address] [place] [id number] www.[email or web address], Yayo Moncada MD, PHD, Lab. DirectorPerformed By: #### AAFPM #### [address] [address] Manager Integrity: Pancho Cano MD [address] [phone] Manager Integrity: Zhang Bledsoe MDABaltimore VA Medical Center 66-64-2400Haovps[address] [place], [place] [address]Comment on above:Performed By: #### AAFPM #### [address] [address] Manager Integrity: Pancho Cano MD [address] [phone] Manager Integrity: SHIVA ArriagaMetroHealth Main Campus Medical Center Comment on above:Performed By: #### AAFPM #### [facility] [address] [address] Manager Integrity: Pancho Cano MD [address] [phone] Manager Integrity: Zhang Bledsoe [facility] Comment on above:Performed By: #### AAFPM #### [address] [address] Manager Integrity: Pancho Cano MD [facility] [address] [place] [address] Manager Integrity: SHIVA Arriagaonojeanine EggINFORMATION NOT PROVIDEDTogus VA Medical CenterComment on above:Performed By: #### AAFPM #### [facility] [address] [place] [address] Manager Integrity: Pancho Cano MD [facility] [address] [place] [address] Manager Integrity: Zhang Bledsoe MDEstimtucson medical center Due [id number] VA Medical CenterComment on above:Performed By: #### AAFPM #### [facility] [address] [address] Manager Integrity: Pancho Cano MD [facility] [address] [place] [address] Manager Integrity: Zhang Bledsoe MDWhittier Rehabilitation Hospital HistoryNegativeTogus VA Medical CenterComment on above:Performed By: #### AAFPM #### [facility] [address] [place] [address] Manager Integrity: Pancho Cano MD [facility] [address] [place] [address] Manager Integrity: Zhang Bledsoe MDIn Vitro FertalizatINFORMATION NOT PROVIDEDMartins Ferry HospitalComment on above:Performed By: #### AAFPM #### [facility] [address] [place] [address] Manager Integrity: Pancho Cano MD [facility] [address] [place] [address] Manager Integrity: Zhang Bledsoe MDST. HELENS HOSP[facility] AND [facility] [id number] VA Medical CenterComment on above:Performed By: #### AAFPM #### [facility] [address] [place] [address] Manager Integrity: Pancho Cano MD [facility] [address] [place] [address] Manager Integrity: Zhang Bledsoe MDMaternal [id number] VA Medical CenterComment on above:Performed By: #### AAFPM #### [facility] [address] [place] [address] Manager Integrity: Pancho Cano MD [facility] [address] [place] [address] Manager Integrity: Osmar Arriagaternal Nzojoj901KpvwlvOmlugTogus VA Medical CenterComment on above:Performed By: #### AAFPM #### [facility] [address] [place] [address] Manager Integrity: Pancho Cano MD [facility] [address] [place] [address] Manager Integrity: BAKARI Arriagaonochorionic TwinsDelaware County HospitalComment on above:Performed By: #### AAFPM #### [facility] [address] [place] [address] Manager Integrity: Pancho Cano MD [facility] [address] [place] [address] Manager Integrity: Zhang Bledsoe A[facility]ALTH FLO[facility] CHEROKEE MEDICAL CENTERatient Weight UnitsLBSTogus VA Medical CenterComment on above:Performed By: #### AAFPM #### [facility] [address] [place] [address] Manager Integrity: Pancho Cano MD [facility] [address] [place] [address] Manager Integrity: LUIS Arriagaace (Maternal)WHITETogus VA Medical CenterComment on above:Performed By: #### AAFPM #### [facility] [address] [place] [address] Manager Integrity: Pancho Cano MD [facility] [address] [place] [address] Manager Integrity: Jay Arriaga SpecimenINFORMATION NOT Wallowa Memorial HospitalComment on above:Performed By: #### AAFPM #### [facility] [address] [place] [address] Manager Integrity: Pancho Cano MD [facility] [address] [place] [address] Manager Integrity: Zhang Bledsoe MDValproic/CarbamazepINFORMATION NOT [facility]owa Memorial HospitalComment on above:Performed By: #### AAFPM #### [facility] [address] [address] Manager Integrity: Pancho Cano MD On license of [facility] [address] [place] [address] Manager Integrity: JIMENEZ Arriaga Single Marker Scrn, Maternal, Serumon 72-88-0855UgcXejpmgClarion HospitalCarrier Study Non-ProMedicaon 84-97-0895EvzOkfcsc[address] [place] [address] MISCELLANEOUS TESTINGon 52-62-1532Asdi Out ReportFWD TO [facility] [id number] [place], [place] [address]Test NameNATERA PAGE MEMORIAL HOSPITALMiscellaneouson 83-70-5947Ahom Out ReportFWD TO [facility] [id number] [place], [place] [address]Comment on above:Performed By: #### CMIS #### [facility] [address] [place] [address] Manager Integrity: Pancho Cano MDTest ACMC Healthcare System GlenbeighComment on above:Performed By: #### CMIS #### [facility] [address] [place] [address] Manager Integrity: RAJ Choi B SURFACE ANTIGEN SCREENon 03-17-8102JFjTd ScreenNegativeNormalNegativeThe [facility] on above:Performed By: #### HIV12 #### [facility] [address] [place] [address] Dr. Edward FranklinPATITIS C VIRUS AB W/ REFLEX QUANTon 17-06-9972MEM AB<0.1Normal 0.0-0.9The [facility] on above:Performed By: #### HCVPCRR ####[facility] [address] [address]DrLazara GillInterpretation:CommentNormalThe [facility] on above: Result Comment: Negative Not infected with HCV, unless recent infection is suspected or other evidence exists to indicate HCV infection.Performed By: #### HCVPCRR ####[facility] [address] [address]DrLazara GillHIV 1 AND 2 WITH REFLEXon 75-06-3142ZMO Screen 4th Generation wRfx Non-ReactiveNormalNon ReactiveThe [facility] on above:Result Comment: HIV Negative HIV-1/HIV-2 antibodies and HIV-1 p24 antigen were NOT detected. There is no laboratory evidence of HIV infection.Performed By: #### HIV12 #### [facility] [address] [place] [address] Dr. Edward GillRPJeanine QUANTon 74-18-9219Zetbi Plasma Reagin, QuantNon-Reactive NormalNonRea<1:1The [facility] on above:Result Comment: Please Note: This test does not meet current guidelines for screening and diagnosis of syphilis. This test is intended for following treatment response in patients being treated for syphilis infection. To screen for syphilis infection, a reflex cascade that includes both RPR and a treponema-specific assay should be utilized, such as Treponema pallidum (Syphilis) Screening Franklin (055172) or Rapid Plasma Reagin (RPR) Test With Reflex to Quantitative RPR and Confirmatory Treponema pallidum Antibodies (522006).Performed By: #### RPRQ ####[facility] [address] [address]Dr. Edward OspinaBELLA AB IGG on 02-77-4613Qelsahf Antibodies, IgG1.02 indexNormalImmune >0.99The [facility] HospitalComment on above:Result Comment: Non-immune <0.90 Equivocal 0.90 - 0.99 Immune >0.99Performed By: #### RUBIGG ####[facility] [address] [address]Dr. Edward AlfaroC AUTO DIFFon 26-93-9648VIVW # 0.0 103/ulNormal0.0-0.1The [facility] HospitalComment on above:Performed By: #### HIV12 #### [facility] [address] [place] [address] Dr. Edward GillBasophils/100 WBC (Bld)0.3 %Normal0.2-2.0[facility] Comment on above:Performed By: #### HIV12 #### [facility] [address] [place] [address] Dr. Edward Traore #0.1 103/ulNormal0.0-0.7The [facility] HospitalComment on above: Performed By: #### HIV12 #### [facility] [address] [place] [address] Dr. Edward Calhounosinophils/100 WBC (Bld)0.6 %Critically low0.9-7.0The [facility] HospitalComment on above:Performed By: #### HIV12 #### [facility] [address] [place] [address] Dr. Edward Calhounrythrocyte distribution width (RBC) [Ratio]14.1 %Ztbgdp15.0-15.0 The [facility] HospitalComment on above:Performed By: #### HIV12 #### [facility] [address] [place] [address] Dr. Edward GillHematocrit (Bld) [Volume fraction]36.2 %Ttlffp77.0-48.0The [facility] HospitalComment on above:Performed By: #### HIV12 #### [facility] [address] [place] [address] Dr. Edward GillHemoglobin (Bld) [Mass/Vol]12.5 g/gZXcuzbt41.0-16.0The [facility] HospitalComment on above:Performed By: #### HIV12 #### [facility] [address] [place] [address] Dr. Edward Ray #0.05 10e3/ulCritically high0.00-0.03The [facility] Comment on above:Performed By: #### HIV12 #### [facility] [address] [place] [address] Dr. Edward Ray %0.4 %Normal0.0-0.5The [facility] HospitalComment on above: Performed By: #### HIV12 #### [facility] [address] [place] [address] Dr. Edward Velásquez #2.7 103/ulNormal1.2-3.8The [facility] HospitalComment on above:Performed By: #### HIV12 #### [facility] [address] [place] [address] Dr. Edward Alvarezhocytes/100 WBC (Bld)23.2 %Osqcli97.5-60.0The [facility] HospitalComment on above:Performed By: #### HIV12 #### [facility] [address] [place] [address] Dr. Edward SimmonsUAL DIFF REQNONormalThe [facility] HospitalComment on above: Performed By: #### HIV12 #### [facility] [address] [place] [address] Dr. Edward June (RBC) [Entitic mass]30.6 zuCyrrfk87.7-34.0The [facility] HospitalComment on above:Performed By: #### HIV12 #### [facility] [address] [place] [address] Dr. Edward June (RBC) [Mass/Vol]34.5 g/zNMogfzr69.9-35.2The [facility]iyush HospitalComment on above:Performed By: #### HIV12 #### [facility] [address] [address] [address] Edward JuneV (RBC) [Entitic vol]88.7 eHRqmpmf53.0-99.0The [facility] HospitalComment on above:Performed By: #### HIV12 #### [facility] [address] [place] [address] Dr. Edward Rosas #0.7 103/ulNormal0.3-0.8The [facility] HospitalComment on above:Performed By: #### HIV12 #### [facility] [address] [place] [address] Dr. Edward Ignacioocytes/100 WBC (Bld)5.8 %Normal1.7-12.0The [facility] Comment on above:Performed By: #### HIV12 #### [facility] [address] [place] [address] Dr. Edward Guevara #8.0 103/ulCritically high1.4-6.5The [facility] Comment on above:Performed By: #### HIV12 #### [facility] [address] [place] [address] Dr. Edward Moralesutrophils/100 WBC (Bld)69.7 %Amxxin93.0-75.0The [facility] HospitalComment on above:Performed By: #### HIV12 #### [facility] [address] [place] [address] Dr. Edward Serranolet mean volume (Bld) [Entitic vol]9.3 fLCritically low 9.5-13.5ThCommunity Regional Medical CenterComment on above:Performed By: #### HIV12 #### [facility] [address] [place] [address] Dr. Edward GillPLT338 103/obStaneu126-285Fqf [facility] HospitalComment on above: Performed By: #### HIV12 #### [facility] [address] [place] [address] Dr. Edward GillRBC4.08 106/ulCritically low4.20-5.40The [facility] on above:Performed By: #### HIV12 #### [facility] [address] [address] [address] Edward SaulBC11.4 103/ulCritically high4.0-11.0The [facility] Medical Centerment on above:Performed By: #### HIV12 #### [facility] [address] [place] [address] Dr. Edward GillCULTJEYSON URINEon 90-14-1337PJWXZZT URINECulture Observations: LIGHT GROWTH OF MIXED GENITAL MARTHA. NO POTENTIAL PATHOGENS SEEN.NormalThe [facility] Ridge Medical Centerment on above:Performed By: #### URCX #### [facility] [address] [place] [address] Dr. Edward GillGLYCOHEMOGLOBIN A1Con 67-84-5427VYB RECOMMENDATIONSEE BELOWNormal The [facility] HospitalComchildren[facility] [place] on above:Result Comment: ADA RECOMMENDED LIMIT 4.0 - 6.0 ADA THERAPEUTIC TARGET < 7.0 ACTION SUGGESTED > 7.0Performed By: #### A1C #### [facility] [address] [place] [address] Dr. Edward GillGlucose [Mass/Vol]117 mg/dLNormalThe [facility] HospitalComchildren[facility] on above:Performed By: #### A1C #### [facility] [address] [place] [address] Dr. Edward GillHbA1c (Bld) [Mass fraction]5.7 %Normal4.5-6.2The [facility] on above:Performed By: #### A1C #### [facility] [address] [place] [address] Dr. Edward Nair BOX TEST PT SEND OUTon 41-88-4638NQWL TO REF LAB10/25/2021 [facility] on above:Performed By: #### HIV12 #### [facility] [address] [place] [address] Dr. Edward GillTSHodru 96-69-6280SDS3.700 uIU/mLNormal0.358-3.740The Emmett HospitalComment on above:Performed By: #### TSH ####[facility] [address] [address]DrPonce GillTYPE AND SCREEN on 51-93-5831APTH AND SCREENNegativeCleveland Clinic [facility]'s [facility] for [facility] on above: Performed By: #### TNS ####[facility] [address] [address]Dr.Edward GillUS PREG TVon 46-05-1746HT PREG TV EXAMINATION: US PREG TV HISTORY: [...] Electronically authenticated by: HUMERA KIM Date: 2021-09-23 10:27[facility] ToledoPREG QUANT HCGon 41-21-0696ARR HBEVE9219 mIU/mLNormalAshtabula County Medical CenterComchildren's hospital [facility] [place] on above:Performed By: #### HIV12 #### [facility] [address] [address] [address] Edward GillHCG RANGESEE BELOWRegency Hospital ToledoComment on above: Result Comment: 5-50 0-1 WEEK 40-300 1-2 WEEKS 100-1,000 2-3 WEEKS 500-6,000 3-4 WEEKS 5,000-200,000 1-2 MONTHS 10,000-100,000 2-3 MONTHS 3,000-50,000 2ND TRIMESTER 1,000-50,000 3RD TRIMESTERPerformed By: #### HIV12 #### [facility] [address] [address] [address] Edward GillCHEMISTRYOrdered By: SYSTEM SYSTEM on 83-16-5872Dgwpu gap [Moles/Vol]15 mmol/LNormal6 - 16 mEq/LFTMC RemisolCalcium [Mass/Vol]9.5 mg/dL Normal8.9 - 11.1 mg/dLFT RemisolChloride [Moles/Vol]102 mmol/QVqwsmj414 - 111 mmol/LFTMC RemisolCO2 [Moles/Vol]22 mmol/NGjepfx23 - 31 mmol/LFTMC Remisol Creatinine [Mass/Vol]0.9 mg/dLNormal0.5 - 1.3 mg/dLFT RemisolGFR/1.73 sq M.predicted among blacks MDRD (S/P/Bld) [Vol rate/Area]mL/min/1.73 o8Htburz >=59mL/min/1.73 m2[facility] [place] SGFR/1.73 sq M.predicted among non-blacks MDRD (S/P/Bld) [Vol rate/Area]mL/min/1.73 v8Orwgzx>=59mL/min/1.73 m2[facility] [facility] S Glucose [Mass/Vol]85 mg/mDHmomtx20 - 199 mg/dLFT RemisolPotassium [Moles/Vol] 3.9 mmol/LNormal3.5 - 5.3 mmol/LFTMC RemisolSodium [Moles/Vol]135 mmol/LNormal 135 - 145 mmol/LFTMC RemisolUrea nitrogen [Mass/Vol]6 mg/dLNormal5 - 21 mg/dL [facility] RemisolUrea nitrogen/Creatinine [Mass ratio]7 mg/mgLow10 - 20FT Remisol HEMATOLOGYOrdered By: SYSTEM SYSTEM on 77-51-1884Wgtairhjc/100 WBC (Bld)0.5 % Normal0.0 - 2.0 %[facility] HemeAutoSSBasophils/Leukocytes Auto (Bld) [Pure # fraction]0.0 E9/LNormal0.0 - 0.2 E9/LFTMC HemeAutoSSEosinophils/100 WBC (Bld)0.6 %Normal0.0 - 8.0 %[facility] HemeAutoSSEosinophils/Leukocytes Auto (Bld) [Pure # fraction]0.1 E9/LNormal0.0 - 0.5 E9/LFTMC HemeAutoSSLymphocytes/100 WBC (Bld) 36.8 %Hhgguq04.0 - 50.0 %[facility] HemeAutoSSLymphocytes/Leukocytes Auto (Bld) [Pure # fraction]2.9 E9/LNormal1.0 - 4.0 E9/LFTMC HemeAutoSSMonocytes/100 WBC (Bld)8.7 %Normal4.0 - 14.0 %[facility] HemeAutoSSMonocytes/Leukocytes Auto (Bld) [Pure # fraction]0.7 E9/LNormal0.2 - 1.0 E9/LFTMC HemeAutoSSNeutrophils/100 WBC (Bld) 53.4 %Bblnvr48.0 - 75.0 %[facility] HemeAutoSSNeutrophils/Leukocytes Auto (Bld) [Pure # fraction]4.2 E9/LNormal2.0 - 7.5 E9/LFTMC HemeAutoSSHEMATOLOGYOrdered By: Isha Yates on 56-62-2969Vhnnoozkjtn distribution width (RBC) [Ratio]14.6 %High10.9 - 14.2 %[facility] HemeAutoSSHematocrit (Bld) [Volume fraction]36.4 %Normal 34.0 - 46.0 %[facility] HemeAutoSSHemoglobin (Bld) [Mass/Vol]12.6 g/sDFviydi06.0 - 16.0 gm/dLFTMC HemeAutoSSMCH (RBC) [Entitic mass]29.9 dbLkbwqe51.0 - 34.0 pgFTMC HemeAutoSSMCHC (RBC) [Mass/Vol]34.6 g/vJBxstvq85.4 - 36.0 gm/dLFTMC HemeAutoSS MCV (RBC) [Entitic vol]86.6 uSPgiiby23.0 - 100.0 fLFTMC HemeAutoSSPlatelet mean volume (Bld) [Entitic vol]8.2 fLNormal6.4 - 10.8 fLFTMC HemeAutoSSPlatelets (Bld) [#/Vol]367.0 E9/LGocgik136.0 - 500.0 E9/LFTMC HemeAutoSSRBC (Bld) [#/Vol] 4.2 E12/LLow4.3 - 5.9 E12/LFTMC HemeAutoSSWBC corrected for nucl RBC Auto (Bld) [#/Vol]7.9 E9/LNormal4.0 - 11.0 E9/LFTMC HemeAutoSSPREG QUANT HCGon 08-29-2021 HCG HQYFT346 mIU/mLNormalAshtabula County Medical CenterComment on above:Performed By: #### PREGQNT ####[facility] [address] [address]Dr. Edward Lim [facility] HospitalComment on above:Result Comment: 5-50 0-1 WEEK 40-300 1-2 WEEKS 100-1,000 2-3 WEEKS 500- 6,000 3-4 WEEKS 5,000-200,000 1-2 MONTHS 10,000-100,000 2-3 MONTHS 3,000-50,000 2ND TRIMESTER 1,000-50,000 3RD TRIMESTERPerformed By: #### PREGQNT ####[facility] Rewjjuam[address] [place], [place] [address]Dr. Edward GillPREWily QUANT HCGon 39-50-7102MGC QUANT99 mIU/mLNSelect Medical Specialty Hospital - AkronComment on above:Performed By: #### HIV12 #### [facility] [address] [address] [address] Edward Lim [facility] HospitalCom[facility] on above: Result Comment: 5-50 0-1 WEEK 40-300 1-2 WEEKS 100-1,000 2-3 WEEKS 500-6,000 3-4 WEEKS 5,000-200,000 1-2 MONTHS 10,000-100,000 2-3 MONTHS 3,000-50,000 2ND TRIMESTER 1,000-50,000 3RD TRIMESTERPerformed By: #### HIV12 #### [facility] [address] [address] [address] Edward Cross QUANT HCGon 37-27-2158MJQ QUANT37 mIU/mLNSelect Medical Specialty Hospital - AkronComchildren's hospital of [place] on above:Performed By: #### PREGQNT ####[facility] [address] [place], [place] [address]Dr. Edward Lim RANGESEE BELOWNormalThe Piyush HospitalComment on above:Result Comment: 5-50 0-1 WEEK 40-300 1-2 WEEKS 100-1,000 2-3 WEEKS 500-6,000 3-4 WEEKS 5,000-200,000 1-2 MONTHS 10,000-100,000 2-3 MONTHS 3,000-50,000 2ND TRIMESTER 1,000-50,000 3RD TRIMESTERPerformed By: #### PREGQNT ####[facility] [address] [address]DrLazara Leon ChangCHEMISTRYOrdered By: SYSTEM SYSTEM on 64-93-3553Bsoinqf [Mass/Vol]4.5 g/dLNormal3.3 - 5.0 gm/dLFTMC Remisol Albumin/Globulin [Mass ratio]1.2 {ratio}Normal1.1 - 2.2[facility] RemisolALP [Catalytic activity/Vol]53 [iU]/uYaaajn95 - 98 Int._Unit/LFTMC RemisolALT No additional P-5'-P [Catalytic activity/Vol]24 [iU]/dNormal6 - 46 Int._Unit/LFT[facility] RemisolAnion gap [Moles/Vol]13 mmol/LNormal6 - 16 mEq/LFT[facility] RemisolAST [Catalytic activity/Vol]20 [iU]/dNormal5 - 43 Int._Unit/LFT[facility] RemisolBilirubin [Mass/Vol]0.6 mg/dLNormal0.0 - 1.1 mg/dLFTMC RemisolCalcium [Mass/Vol]9.4 mg/dL Normal8.9 - 11.1 mg/dLFTMC RemisolChloride [Moles/Vol]97 mmol/BBfi713 - 111 mmol/LFTMC RemisolCO2 [Moles/Vol]24 mmol/TRvdrjg05 - 31 mmol/LFTMC Remisol Creatinine [Mass/Vol]0.8 mg/dLNormal0.5 - 1.3 mg/dLFTMC RemisolGFR/1.73 sq M.predicted among blacks MDRD (S/P/Bld) [Vol rate/Area]mL/min/1.73 h9Lthiwh >=59mL/min/1.73 m2FT Chem SGFR/1.73 sq M.predicted among non-blacks MDRD (S/P/Bld) [Vol rate/Area]mL/min/1.73 l4Bcrilj>=59mL/min/1.73 m2[facility] [place] S Globulin (S) [Mass/Vol]3.7 g/dLNormal1.4 - 4.0 gm/dLFTMC RemisolGlucose [Mass/Vol]74 mg/sZCyunmg94 - 199 mg/dLMER[facility] [place] RemisolMagnesium [Mass/Vol]2.0 mg/dL Normal1.3 - 2.4 mg/dLFTMC RemisolPotassium [Moles/Vol]3.5 mmol/LNormal3.5 - 5.3 mmol/LFTMC RemisolProtein [Mass/Vol]8.2 g/dLHigh6.0 - 7.8 gm/dLFT Remisol Sodium [Moles/Vol]130 mmol/SGxp736 - 145 mmol/LFTMC RemisolTSH Qn4.56 m[IU]/L Normal0.34 - 5.60 mcIU/mLMER[facility] [place] RemisolUrea nitrogen [Mass/Vol]7 mg/dLNormal5 - 21 mg/dLFTMC RemisolUrea nitrogen/Creatinine [Mass ratio]9 mg/mgLow10 - 20[facility] RemisolHEMATOLOGYOrdered By: SYSTEM SYSTEM on 39-78-2783Bsbxtxsse/100 WBC (Bld) 0.3 %Normal0.0 - 2.0 %[facility] HemeAutoSSBasophils/Leukocytes Auto (Bld) [Pure # fraction]0.0 E9/LNormal0.0 - 0.2 E9/LFTMC HemeAutoSSEosinophils/100 WBC (Bld)0.5 %Normal0.0 - 8.0 %[facility] HemeAutoSSEosinophils/Leukocytes Auto (Bld) [Pure # fraction]0.0 E9/LNormal0.0 - 0.5 E9/LFTMC HemeAutoSSLymphocytes/100 WBC (Bld) 35.9 %Vwauvj27.0 - 50.0 %[facility] HemeAutoSSLymphocytes/Leukocytes Auto (Bld) [Pure # fraction]3.2 E9/LNormal1.0 - 4.0 E9/LFT[facility] HemeAutoSSMonocytes/100 WBC (Bld)8.8 %Normal4.0 - 14.0 %[facility] HemeAutoSSMonocytes/Leukocytes Auto (Bld) [Pure # fraction]0.8 E9/LNormal0.2 - 1.0 E9/LFTMC HemeAutoSSNeutrophils/100 WBC (Bld) 54.5 %Tgehow65.0 - 75.0 %[facility] HemeAutoSSNeutrophils/Leukocytes Auto (Bld) [Pure # fraction]4.8 E9/LNormal2.0 - 7.5 E9/LFT[facility] HemeAutoSSHEMATOLOGYOrdered By: Trena Castro on 78-14-5658Spppynkzknq distribution width (RBC) [Ratio]14.1 % Zejwvz26.9 - 14.2 %[facility] HemeAutoSSHematocrit (Bld) [Volume fraction]38.5 %Normal 34.0 - 46.0 %[facility] HemeAutoSSHemoglobin (Bld) [Mass/Vol]13.1 g/oGAryudp28.0 - 16.0 gm/dLFTMC HemeAutoSSMCH (RBC) [Entitic mass]29.4 oxYvbmxe33.0 - 34.0 pgFTMC HemeAutoSSMCHC (RBC) [Mass/Vol]34.1 g/wGLhqspq30.4 - 36.0 gm/dLFTMC HemeAutoSS MCV (RBC) [Entitic vol]86.0 aDFwbriu84.0 - 100.0 fLFTMC HemeAutoSSPlatelet mean volume (Bld) [Entitic vol]8.3 fLNormal6.4 - 10.8 fLFTMC HemeAutoSSPlatelets (Bld) [#/Vol]334.0 E9/AXjmcrc558.0 - 500.0 E9/LFT[facility] HemeAutoSSRBC (Bld) [#/Vol] 4.5 E12/LNormal4.3 - 5.9 E12/L[facility] HemeAutoSSWBC corrected for nucl RBC Auto (Bld) [#/Vol]8.9 E9/LNormal4.0 - 11.0 E9/LFTMC HemeAutoSSOB/HOGSHEAD ROLLER - Office Visiton 18-06-6701LF/HOGSHEAD ROLLER - Office VisitChief ComplaintComplains of: heavy bleeding Declines resident care associate, Rukhsanacecily Salomon, ROSE History of Present IllnessSanna [...] stroke 07/2017 PSH as above POB- 2007 [id number] 17week loss subchorionic h [id number] 39weeks bleeding at 5weeks for 2 weeks diet 1417-9748 calories exercise none 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 Review [...] History History of Oral Surgery Tooth Extraction [place] Family History No pertinent family history Family history of cerebrovascular accident (CVA) (V17.1) (Z82.3) Family history of diabetes mellitus (V18.0) (Z83.3) Family history of cerebrovascular accident (CVA) (V17.1) (Z82.3) Family history of cerebrovascular accident (CVA) (V17.1) (Z82.3) Allergies No Known Drug Allergies Recorded By: Susie Salomon; 11/08/2017 4:19:42 PM Current Meds Ciprofloxacin HCl - 500 MG Oral Tablet;Ther apy: 23Kph1500 to Recorded Dispense: 0 Days ; #: Sufficient Tablet; Refill: 0; BUBBA = N; Record; Last Updated By: Susie Salomon; 11/08/2017 4:19:42 PM Plavix 75 MG Oral Tablet;Therapy: 28Lox0049 to Recorded Dispense: 0 Days ; #: Sufficient Tablet; Refill: 0; BUBBA = N; Record; Last Updated By: Ssuie Salomon; 11/08/2017 4:19:42 PM Provera 10 MG Oral Tablet;Therapy: 65Pyn2852 to Recorded Dispense: 0 Days ; #: Sufficient Tablet; Refill: 0; BUBBA = N; Record; Last Updated By: Susie Salomon; 11/08/2017 4:19:42 PM Vitals Vital Signs Recorded: 78Gva3370 04:21RWDqiyaana059Tmgbteyoi87Owpqdm1 ft 6 koEojoek580 lb BMI Luuykrpmjq95.57BSA Calculated1.3LZL42Dhr5175Wrqc Scale6-7 Physical ExamConstitutional: Alert and in no acute distress. Well developed, well nourished. Head and Face: Head and face: Normal. Psychiatric: Alert and oriented x 3. Affect normal to patient baseline. Mood: Appropriate. Diagnoses/Problems Anemia (285.9) (D64.9) Asthma (493.90) (J45.909) Depression with anxiety (300.4) (F41.8) History of Oral Surgery Tooth Extraction [place] No pertinent family history : Mother [...] GIDeclines STI testing todayWeight gain, offered a story analyst consult and she declined. Encouraged exercise. Signatures Electronically signed by : RICHARD Ulrich; Nov 12 2017 8:46PM EST (Author)NormalUH TouchworksAntiphospholipid Abs IgG/IgMon 86-00-0876Xblufqszyikfmufb Ab-QpI965 GPLCritically high0-14[facility] SystemComment on above:Result Comment: INTERPRETIVE INFORMATION: High- Specificity Antiphospholipid Antibody,IgG14 GPL or less......Ejzuoytz51 26 GPL.........Indeterminate Suggest repeat testing in 12 weeks27 GPL or greater. ..PositiveHigh-specificity antiphospholipid IgG and IgM antibodies are directedagainsta mixture of phosphatidylserine, phosphatidic acid, and beta- 2glycoprotein 1antigens. These antibodies are more specific than cardiolipin IgG andIgMantibodies in the diagnosis of antiphospholipid syndrome (APS). Antiphospholipid Ab-IgM6 MPLNormal034 Petersen StreetComment on above:Result Comment: INTERPRETIVE INFORMATION: High-Specificity Antiphospholipid Antibody,IgM14 MPL or less......Xlxcaloe56 37 MPL.........Indeterminate Suggest repeat testing in 12 weeks38 MPL or greater. ..PositiveHigh-specificity antiphospholipid IgG and IgM antibodies are directedagainsta mixture of phosphatidylserine, phosphatidic acid, and beta- 2glycoprotein 1antigens. These antibodies are more specific than cardiolipin IgG andIgMantibodies in the diagnosis of antiphospholipid syndrome (APS).Performed by [employer],[address] [place] [address],[place] [address] mwa.[employer], Zhang Bledsoe MD - Lab. [facility] Miscellaneous test 1on 05-28-2017 Miscellaneous Test 1SEE NOTEPlatte Valley Medical CenterComment on above: Result Comment: Test [...] Additional information and recommendations for testingmay befound [email or web address]/Topics/AutoimmuneDz/ConnectiveTissueDz/i ndex.html.Performed by [employer],[address] [facility] [place] [address] qhp.[employer],Zhang Bledsoe MD - Lab. DirectorCardiolipin Antibodies, IgA, IgG, IgMon 11-27-9172Erfuxgseuov Ab IgA0 APLNormal0-11[facility] SystemComment on above:Result Comment: INTERPRETIVE INFORMATION: Cardiolipin Antibodies, IgA0-11 APL: Hzmhdzod43-23 APL: In oiihickurkn46-80 APL: Low to Moderately Uifrvovw02 APL or above: High PositivePerformed by [facility],[address] DataS[facility] [place] [address] edd.KvantumZhang MD - Lab. DirectorCardiolipin Ab IgG 111 GPLCritically high0-14[facility] Health SystemComment on above:Result Comment: INTERPRETIVE INFORMATION: Anti-Cardiolipin IgG Ab0-14 GPL: Oxjgmpij08- 19 GPL: Avylxmfjtauys28-11 GPL: Low to Moderately Xzjvjqyr81 GPL or above: High PositiveThe persistent presence [...] other criteria phospholipid antibody tests.Cardiolipin Ab IgM10 MPLNormal0-12[facility] SystemComment on above:Result Comment: INTERPRETIVE INFORMATION: Anti-Cardiolipin IgM0-12 MPL: Dhybsakg70-34 MPL: Sohcphbplwkdm62-07 MPL: Low to Moderately Ubudycqc38 MPL or above: High PositiveThe persistent presence [...] and/orothercriteria phospholipid antibody tests.Jennifer-Simpson Virus by PCRon 79-02-9058Tsmtaop Simpson Virus by PCRNot DetectedNoSpanish Peaks Regional Health CenterComment on above:Result Comment: NOT DETECTED - A negative result does not rule out thepresence of PCR inhibitors inthe patient specimen or assayspecific nucleic acid in concentrations below the level ofdetection bythe assay.INTERPRETIVE INFORMATION: Jennifer Simpson Virus by PCRTest developed and characteristics determined by [employer]. SeeCompliance Statement A: [employer]/CSPerformed by [employer],[address] [facility] [place] [address] obs.[employer], Zhang Bledsoe MD - Lab. DirectorEpstein Simpson Virus SourceCSFPlatte Valley Medical CenterOligoclonal Band Profileon 53-03-7943Cbjqhsw5489 mg/hYEllsoi0488-4255BnbraHighlands Behavioral Health SystemAlbumin 5.2 ratioNormal0.0-9.0[facility] Health SystemAlbumin, CSF20 mg/dLNormal 0-35[facility] SystemCSF IgG Synthesis Rate<0.0Normal<=8.0[facility] SystemCSF Oligoclonal BandsNegativeNormalNegativeHighlands Behavioral Health SystemCSF Oligoclonal Bands Number0 BandsNormal0-1MSan Luis [facility] Regional Medical CenterGlobulin1060 mg/lFAepect194-7617CpahuHighlands Behavioral Health System Comment on above:Result Comment: REFERENCE INTERVAL: Immunoglobulin GAccess complete set of age- and/or gender-specific reference intervalsforthis test in the [employer] [facility] Test Directory ([employer]).IgG Index0.45 ratioNormal 0.28-0.66[facility] SystemImmunoglobulin G CSF2.5 mg/dLNormal0.0-6.0 [facility] Health SystemINR Coag RelTime (Bld)0.12 {INR}Normal0.09-0.25 [facility] Health SystemInterpretationSee NoteNoSpanish Peaks Regional Health CenterComment on above:Result Comment: Isoelectric focusing/immunofixation reveals no oligoclonal bands ineitherthe CSF orthe serum. This is considered to be a negative result foroligoclonal bands. Approximately 5 percentof patients with clinicallydefinitive multiple sclerosis will have a negative result.Performed by [employer],[address] [facility] [place] [address] kgb.[employer], Zhang Bledsoe MD - Lab.DirectorMyelin Basic Protein, CSFon 15-19-4583Pgwagv Basic Protein1.82 ng/mLNormal0.00-5.50[facility] SystemComment on above:Result Comment: INTERPRETIVE INFORMATION: Myelin Basic ProteinTest developed and characteristics determined by [employer]. SeeCompliance Statement D: [employer]/CSPerformed by [employer],[address] [facility] [place] [address] frs.[employer], hZang Bledsoe MD - Lab. [facility] Miscellaneous test 1on 13-74-1680Tpueaxg Prompt 75529HssdwvZmljsPlatte Valley Medical CenterComment on above:Result Comment: Corrected result; [place] [address] on 05/25/2017 at 13:14 by V/AUT [employer] Miscellaneous test 1on 47-26-7811Ixyyloe Bhmxot08613AglzsvVjnvyPlatte Valley Medical CenterComment on above:Result Comment: DS DNACSF Cell Counton 05-25-2017 CSF no diffsee [facility] HospitalComment on above:Result Comment: Differential not performed -Total Nucleated cellsCSF AppearanceClear NormalHighlands Behavioral Health SystemCSF ColorColorlessPlatte Valley Medical CenterCSF Tube NumberTube 4Pl[facility] Medical CenterFluid Clot Evaluationsee belowPlatte Valley Medical CenterComment on above:Result Comment: No Clots SeenTotal Nucleated Cells0 K/uLNormal0-8[facility] Health SystemTotal Red Blood Cells0 K/uLPlatte Valley Medical CenterCSF Glucose on 30-85-6781PQB Xzlpdth72 mg/uPAdhdeh17-81YkbtcHighlands Behavioral Health SystemCSF Proteinon 45-68-9566NSE Jwbdmbp30 mg/eDZepzmt89-71FeebgHighlands Behavioral Health System Creatine Kinaseon 13-68-8850Dkfkiiuu kinase (CK)71 U/LNormal0-170High[facility] Health SystemCulture, CSFon 56-32-2767Hhvrmob, CSFORDER#: [id number] ORDERED BY: VERNA MONGE: CSF (Spinal Fluid) CSF COLLECTED: 05/25/17 13:25ANTIBIOTICS AT AMARILYS.: RECEIVED : 05/25/17 13:25Gram Stain Direct FINAL 05/25/17 15:30 No WBC's, No organisms seenCulture, CSF FINAL 05/28/17 09:04 No growth at 72 hours [facility] CenterFL LUMBAR PUNCTURE DIAGon 94-39-7097ZH LUMBAR PUNCTURE DIAGFL LUMBAR PUNCTURE DIAG : [...] LUMBAR PUNCTURE.Interpreted by:NIKITA Mezaigned by:Humera Covarrubias MD05/25/17inal resultNormalHighlands Behavioral Health System Homocysteineon 77-78-2478Wvumhicvxtyt9.1 umol/LNormal0.0-15.0[facility] Health SystemPartial Thromboplastin Timeon 93-66-1657aRWN38.7 gPhzwpq64.6-35.4 [facility] SystemComment on above:Result Comment: Heparin Therapeutic Range: 38.8 - 54.6 seconds.Prothrombin Timeon 64-64-5334IUJ Coag RelTime (PPP)1.0 {INR}[facility] CenterComment on above:Result Comment: Recommended INR [...] secProthrombin time (PT) Coag time (PPP) 10.7 sNormal8.1-13.7[facility] Vital Signs Date TimeVital SignValuePerforming EpnynwlxlHkrijmtn84-83-7409 09:26-0400Body mass index (BMI) [Ratio]33.98 kg/s8Amnrs Roamler DO Work Phone: [facility] ChildrenQzecjzntyo90-55-4062 09:26-0400Body ubrsiw02.48 kgCorey Montez DO Work Phone: [facility] ChildrenRixvnrzleq51-87-3686 09:26-0400Diastolic blood jylsslvc98 mm[Hg]Wilton Hatchbuck Work Phone: [facility] ChildrenSpnuktdcmr41-82-7549 09:26-0400Systolic blood wdudcccj338 mm[Hg]Wilton Hatchbuck Work Phone: [facility] ChildrenKyeiukzgyy59-54-0924 13:44-0400Body vmtsdi418.6 cmApreet Callahan MD MPH Work Phone: [phone]10-20-2025 13:44-0400Body mass index (BMI) [Ratio]33.73 kg/c0VbnslSam Callahan MD MPH Work Phone: [phone] [place], [place] [address]10-20-2025 13:44-0400Body saclqr91.8 kgSam Callahan MD MPH Work Phone: [facility]10-20-2025 13:44-0400Diastolic blood bumidupp13 mm[Hg]Sam Callahan MD MPH Work Phone: [facility]10-20-2025 13:44-0400Heart rate 79 /minSam Callahan MD MPH Work Phone: [phone])585-[address] [place], [place] [address]010-20-2025 13:44-0400 Respiratory rate18 /minSam Callahan MD MPH Work Phone: [facility]10-20-2025 13:44-0400Systolic blood kykxhffv416 mm[Hg]Sam Callahan MD MPH Work Phone: [facility]10-13-2025 10:45-0400Body mass index (BMI) [Ratio]34.12 kg/b0Yumod Montez DO Work Phone: [phone] [place], [place] [address]Slkblycfvh17-67-0075 10:45-0400Body .89 kgCorey Montez DO Work Phone: [phone])203-[address] [place] [address]-13-2025 10:45-0400Diastolic blood mivwmept64 mm[Hg]Wilton Montez DO Work Phone: [phone] [place], [place] [address]Vtnifmrbme27-04-0688 10:45-0400Systolic blood rdgcrtek855 mm[Hg]Wilton Montez DO Work Phone: [phone] [place], [place] [address]Lvnndmuqrc86-71-6804 09:30-0400Body mass index (BMI) [Ratio]34.14 kg/r8Avhri Montez DO Work Phone: [phone] [place], [place] [address]Jifpvdevei50-53-8110 09:30-0400Body hmbexd08.94 kgCorey Montez DO Work Phone: [phone] [place], [place] [address]Wutgnjpups21-45-7232 09:30-0400Diastolic blood bwasbxvi29 mm[Hg]Wilton Montez DO Work Phone: [phone] [place], [place] [address]Nfonfdrlsc94-47-2525 09:30-0400Systolic blood xogavtqi109 mm[Hg]Wilton Montez DO Work Phone: [phone] [place] [address]-08-2025 15:14-0400Body mass index (BMI) [Ratio]33.73 kg/w0Unkck Montez DO Work Phone: [place] [address]Enwhqzzdfo22-13-9018 15:14-0400Body deyhgw02.8 kg Wilton Montez DO Work Phone: [facility] ChildrenPcghynlxcj93-13-4096 15:14-0400Diastolic blood lmrxueiz16 mm[Hg]Wilton Herrmann DO Work Phone: noSaint [facility] HospitalXzhndjtxgp73-20-4942 15:14-0400Systolic blood qfarpdqh739 mm[Hg]Wilton Herrmann DO Work Phone: noSaint Alexius HospitalYzynficzdc63-05-7385 14:22-0400Body mass index (BMI) [Ratio]33.89 kg/q3MxpcmlcdMukul Noyola MD Work Phone: [phone]09-04-2025 14:22-0400Body rpojdw19.25 kgMukul Noyola MD Work Phone: [phone] [place], [place] 1385909-04-2025 14:22-0400Diastolic blood jifgiikf34 mm[Hg]Mukul Noyola MD Work Phone: [phone])[address] [place], [place] 1385909-04-2025 14:22-0400Systolic blood irfakhtl943 mm[Hg]Mukul Noyola MD Work Phone: [phone])[address] [place], [place] 1385908-26-2025 11:34-0400Body .7 cmKatherine Negrete APRN.CLINICAL LAW PROFESSOR Work Phone: [facility]08-26-2025 11:34-0400Body mass index (BMI) [Ratio]33.57 kg/s1HkoocKatherine Negrete APRN.CLINICAL LAW PROFESSOR Work Phone: [facility]08-26-2025 11:34-0400Body temperature 97.59 [degF]Katherine Negrete CRISIS MANAGER.CLINICAL LAW PROFESSOR Work Phone: [facility]08-26-2025 11:34-0400Body uidpnl07.4 kgKatherine Negrete APRN.CLINICAL LAW PROFESSOR Work Phone: [facility]08-26-2025 11:34-0400Diastolic blood ylsdveev33 mm[Hg]Katherine Negrete CRISIS MANAGER.CLINICAL LAW PROFESSOR Work Phone: [facility]08-26-2025 11:34-0400Heart rate80 /min Katherine Negrete APRN.CLINICAL LAW PROFESSOR Work Phone: [facility]08-26-2025 11:34-0400Respiratory rate 16 /minKatherine Negrete APRN.CLINICAL LAW PROFESSOR Work Phone: [facility]08-26-2025 11:34-3905CmT0% (BldA) [Mass fraction]98 %Katherine Negrete APRN.CLINICAL LAW PROFESSOR Work Phone: [facility]08-26-2025 11:34-0400Systolic blood mm[Hg]Katherine Negrete CRISIS MANAGER.CLINICAL LAW PROFESSOR Work Phone: [facility]08-14-2025 09:28-0400Body mass index (BMI) [Ratio]33.41 kg/e3Wkvlf Montez DO Work Phone: [facility] ChildrenObwrajytin02-77-3914 09:28-0400Body aderaa14.89 kgCorey Montez DO Work Phone: [place] [address]Otssyfkvwy13-79-7399 09:28-0400Diastolic blood atuxaevb70 mm[Hg]Wilton Montez DO Work Phone: [place] [address]Ecaunyengi21-49-1641 09:28-0400Systolic blood vxzkutrj050 mm[Hg]Wilton Montez DO Work Phone: [facility] ChildrenGgjoeyrqum42-23-8728 10:53-0400Body mass index (BMI) [Ratio]33.57 kg/h4Mxeum Montez DO Work Phone: [facility] ChildrenOtrdvuqonb47-09-9558 10:53-0400Body eckssz80.35 kgCorey Montez DO Work Phone: [facility] ChildrenSzczpvckhj02-62-3967 10:53-0400Diastolic blood pbolcngc26 mm[Hg]Wilton Montez DO Work Phone: [facility] ChildrenFvyyizrdzz09-32-9022 10:53-0400Systolic blood zewcaxzt018 mm[Hg]Wilton Montez DO Work Phone: [place] [address]Jivasmxivq60-54-9837 13:07-0400Body mass index (BMI) [Ratio]33.73 kg/f9BhfnnwLorena Enciso RN Work Phone: [phone] [place], [place] [address]07-23-2025 13:07-0400Body gefowh07.8 kgLorena Enciso RN Work Phone: [phone] [place], [place] [address]07-03-2025 09:32-0400Body mass index (BMI) [Ratio]33.81 kg/l6Bfghu Montez DO Work Phone: [facility] ChildrenCymdfskkuj60-47-5046 09:32-0400Body yvogun68.03 kgCorey Montez DO Work Phone: [phone] [place], [place] [address]Idgcpwbari37-49-7802 09:32-0400Diastolic blood mm[Hg]Wilton Montez DO Work Phone: [facility] ChildrenQaesanpdwl55-44-8246 09:32-0400Systolic blood ciwqdiyj599 mm[Hg]Wilton Montez DO Work Phone: [phone] [place], [place] [address]Ctlqdjpgej18-79-0251 14:23-0400Body mass index (BMI) [Ratio]33.46 kg/u9AhuviKatherine Negrete APRN.CLINICAL LAW PROFESSOR Work Phone: [facility]07-01-2025 14:23-0400Body temperature 97 [degF]Katherine Negrete APRN.CLINICAL LAW PROFESSOR Work Phone: [facility]07-01-2025 14:23-0400Body qtfnoa98.1 kgKatherine Negrete APRN.CLINICAL LAW PROFESSOR Work Phone: [facility]07-01-2025 14:23-0400Diastolic blood mm[Hg]Katherine Negrete APRN.CLINICAL LAW PROFESSOR Work Phone: [facility]07-01-2025 14:23-0400Heart rate82 /min Katherine Negrete APRN.CLINICAL LAW PROFESSOR Work Phone: [facility]07-01-2025 14:23-0400Respiratory rate 16 /minKatherine Negrete APRN.CLINICAL LAW PROFESSOR Work Phone: [facility]07-01-2025 14:23-2266VsG4% (BldA) [Mass fraction]100 %Katherine Negrete APRN.CLINICAL LAW PROFESSOR Work Phone: [facility]07-01-2025 14:23-0400Systolic blood dbsomdfo333 mm[Hg]Katherine Negrete APRN.CLINICAL LAW PROFESSOR Work Phone: [facility]06-05-2025 14:10-0400Body mass index (BMI) [Ratio]33.89 kg/m2[facility]06[facility] 14:10-0400[facility] .[facility] 14:10-0400Diastolic blood xgbilgcp22 mm[Hg][facility]06-05-2025 14:10-0400Systolic blood jqdzoxdv812 mm[Hg][facility]03-27-2025 12:07-0400Body mass index (BMI) [Ratio]34.44 kg/s3Zlfxk Montez DO Work Phone: [facility] [id number] 12:07-0400Body .8 kg Wilton Montez DO Work Phone: [facility] [id number] 12:07-0400Diastolic blood bwijdfjw00 mm[Hg]Wilton Montez DO Work Phone: [facility] [id number] 12:07-0400Systolic blood mm[Hg]Wilton Montez DO Work Phone: [facility] [id number] 08:27-0500Blood Pressure LocationScott KAPLE [phone]-[facility]ksxhBu[facility]03-03-2025 08:27-0500Diastolic blood lescrldo54 mm[Hg]Penelope KAPLE 849-4088Aahaqt-GwqilBucyrus Community Hospital03-03-2025 08:27-0500Heart rate77 /minScott KAPLE 132-4579Cdyhuk-LoqmwBucyrus Community Hospital03-03-2025 08:27-3663MlH0% (BldA) [Mass fraction]99 %Penelope CASAS 464-3157Ocgicz-MbnxvBucyrus Community Hospital03-03-2025 08:27-0500Systolic blood kiuozezu967 mm[Hg]Penelope CASAS 527-6889Qiydmh-DloouBucyrus Community Hospital02-24-2025 15:21-0500Body mass index (BMI) [Ratio]34.93 kg/h8Qzhdw Montez DO Work Phone: [facility] ChildrenBxafmfitkk97-13-8417 15:21-0500Body .16 kgCorey Montez DO Work Phone: [facility] ChildrenBafgrmxwuf32-82-5033 15:21-0500Diastolic blood qhpaxvco23 mm[Hg]Wilton Montez DO Work Phone: [facility] ChildrenNexmwqkmlb49-83-5629 15:21-0500Systolic blood aiycphii645 mm[Hg]Wilton Montez DO Work Phone: [facility] ChildrenIhlbxqgelc73-71-6731 16:14-0500Blood Pressure LocationJESSICA BACA 428-9151Xyioyr-MmimfSelect [facility] 06-19-2024 16:14-0500Diastolic blood rvhqnacl36 mm[Hg]JESSICA BACA 210-0069Hatjem-KrvrzSelect [facility] 06-19-2024 16:14-0500Heart rate74 /minBARRONCLYN KEVEN 640-2785Klhhnz-MzhamSelect [facility] 06-19-2024 16:14-6735OeS8% (BldA) [Mass fraction]100 %JESSICA BACA 447-0827Sejnjv-IpgpvSelect Medical [facility] 06-19-2024 16:14-0500Systolic blood leykjepo192 mm[Hg]JESSICA BACA 978-7725Yfggfm-TywawSumma [facility] [place] 06-09-2024 13:55-0500Blood Pressure LocationScott KAPLE 091-7227Fdyyth-InpewBucyrus Community Hospital02-10-2025 13:55-0500Diastolic blood ohrkmpwt36 mm[Hg]Penelope KAPLE 908-0906Mzjsam-WqrmjBucyrus Community Hospital02-10-2025 13:55-0500Heart rate78 /minScott KAPLE 151-4654Oicsas-SzlamBucyrus Community Hospital02-10-2025 13:55-9343FqO5% (BldA) [Mass fraction]99 %Penelope KAPLE 946-8306Kpbxwk-DmqvoBucyrus Community Hospital02-10-2025 13:55-0500Systolic blood zgbtummf132 mm[Hg]Penelope STYLESLE 666-8303Lxtxgs-VrjndBucyrus Community Hospital02-03-2025 11:43-0500Body mass index (BMI) [Ratio]34.51 kg/d7Jkosn Montez DO Work Phone: [facility] ChildrenCanuhydvmb70-90-7156 11:43-0500Body gzhpyr60.98 kgCorey Montez DO Work Phone: [facility] ChildrenAqiccfgywh57-38-1238 11:43-0500Diastolic blood kqjuuwxw82 mm[Hg]Wilton Montez DO Work Phone: [facility] ChildrenRtbiyznwzj16-63-0617 11:43-0500Systolic blood jcgzawhp622 mm[Hg]Wilton Montez DO Work Phone: [facility] ChildrenYfjmnvukbo00-06-4454 13:07-0500Body ainlwc539.7 cmVramos Calix MD Work Phone: [facility]01-29-2025 13:07-0500Body mass index (BMI) [Ratio]35.02 kg/f9NdbieKristofer Calix MD Work Phone: [facility]01-29-2025 13:07-0500Body temperature 97.59 [degF]Kristofer Calix MD Work Phone: [facility]01-29-2025 13:07-0500Body dgbnre11.5 kgKristofer Calix MD Work Phone: [facility]01-29-2025 13:07-0500Diastolic blood xlrywfga46 mm[Hg]Kristofer Calix MD Work Phone: [facility]01-29-2025 13:07-0500Heart rate72 /min Kristofer Calix MD Work Phone: [facility]01-29-2025 13:07-0500Respiratory rate 16 /minKristofer Calix MD Work Phone: [facility]01-29-2025 13:07-2382KwI3% (BldA) [Mass fraction]99 %Kristofer Cailx MD Work Phone: [facility]01-29-2025 13:07-0500Systolic blood hetouyel957 mm[Hg]Kristofer Calix MD Work Phone: [facility]01-07-2025 14:40-0500Body mass index (BMI) [Ratio]35.41 kg/h7Uztoe Montez DO Work Phone: [facility] ChildrenShqepbsipd68-40-7020 14:40-0500Body mchzcu89.52 kgCorey Montez DO Work Phone: [facility] ChildrenOkqnwhkzcd67-42-9370 14:40-0500Diastolic blood lmsanelb81 mm[Hg]Wilton Montez DO Work Phone: [facility] ChildrenPvbfoewdxo28-70-3201 14:40-0500Systolic blood zlxtcyjl013 mm[Hg]Wilton Montez DO Work Phone: [facility] ChildrenFpwvzawyzg51-53-3017 10:57-0500Body mass index (BMI) [Ratio]35.85 kg/m2[facility]12-06-2024 10:57-0500Body jexcxf046.75 kgNoSoutheast [facility]10-08-2024 13:29-0400Blood Pressure LocationScott KAPLE 579-4043Silxsq-Uevjh[address] [place], [place] 1151610-08-2024 13:29-0400Body tnpuaonzwli47.06 [degF]Penelope CASAS 435-7511Dkasdi-Jbcar[address] [place], [place] 1151610-08-2024 13:29-0400Diastolic blood sjumwjaw05 mm[Hg]Penelope STYLESLE 387-8827Zvjbqy-Didme[address] [place], [place] 1151610-08-2024 13:29-0400Heart rate76 /minScott KAPBEN 445-2878Bhdigj-Pkmxc[address] [place], [place] 1151610-08-2024 13:29-0400Respiratory rate16 /minScott KAPBEN 245-2461Jsjgrb-Pjxwm[address] [place], [place] 1151610-08-2024 13:29-1749OzC4% (BldA) [Mass fraction]99 %Penelope CASAS 907-1366Wwcjyt-Yurpp[address] [place], [place] 1151610-08-2024 13:29-0400Systolic blood unxvaluq267 mm[Hg]Penelope CASAS 658-6220Bcuggt-Wfwne[address] [place], [place] 1151610-05-2024 14:39-0400Blood Pressure LocationPreeti Gudimella 289-2138Vznxfx-Hfszd[address] [place], [place] 6813010-05-2024 14:39-0400Body aycrusixilc40.06 [degF]Anni Gudimella 286-4169Baznfa-Pxklo[address] [place], [place] 6813010-05-2024 14:39-0400Diastolic blood jluhfuoa90 mm[Hg]Anni Gudimella 103-4704Etlucm-SlvgiGreene [facility] Hospital10-05-2024 14:39-0400Heart rate98 /minPreeti Gudimella 523-9599Faxivm-Bgyqw[address] [place], [place] 6813010-05-2024 14:39-6507RhD8% (BldA) [Mass fraction]99 %Anni Gudimella 227-3328Pcnrqg-KgmxlSumma Health [facility] Cfda58-12-8699 14:39-0400Systolic blood wrjaedji571 mm[Hg]Anni Gudimella 874-3144Gjidhg-HtunySumma Health [facility] Ujuc73-33-7058 13:45-0400Body hwvqeg591.7 cmVramos Calix MD Work Phone: [facility]09-04-2024 13:45-0400Body mass index (BMI) [Ratio]36.52 kg/z3SvwahKristofer Calix MD Work Phone: [facility]09-04-2024 13:45-0400Body temperature 97.11 [degF]Kristofer Calix MD Work Phone: [facility]09-04-2024 13:45-0400Body opsyws540.7 kgKristofer Calix MD Work Phone: [facility]09-04-2024 13:45-0400Diastolic blood wafrktsr09 mm[Hg]Kristofer Calix MD Work Phone: [facility]09-04-2024 13:45-0400Heart rate91 /min Kristofer Calix MD Work Phone: [facility]09-04-2024 13:45-0400Respiratory rate 16 /minKristofer Calix MD Work Phone: [facility]09-04-2024 13:45-7334PhD8% (BldA) [Mass fraction]100 %Kristofer Calix MD Work Phone: [facility]09-04-2024 13:45-0400Systolic blood sfwlowdn704 mm[Hg]Kristofer Calix MD Work Phone: [facility]08-01-2024 13:40-0400Body temperature 97.7 [degF]Chair Spencer Work Phone: [facility]08-01-2024 13:40-0400Diastolic blood yvpaxtam17 mm[Hg]Chair Stew Work Phone: [facility]08-01-2024 13:40-0400Heart rate75 /min Chair Spencer Work Phone: [facility]08-01-2024 13:40-0400Respiratory rate 16 /minChair Spencer Work Phone: [facility]08-01-2024 13:40-3879CwP3% (BldA) [Mass fraction]99 %Chair Spencer Work Phone: [facility]08-01-2024 13:40-0400Systolic blood yszcapmc205 mm[Hg]Chair Spencer Work Phone: [facility]07-25-2024 14:00-0400Body temperature 98.2 [degF]Chair Spencer Work Phone: [facility]07-25-2024 14:00-0400Diastolic blood rmfitimq34 mm[Hg]Chair Stew Work Phone: [facility]07-25-2024 14:00-0400Heart rate79 /min Chair Spencer Work Phone: [facility]07-25-2024 14:00-0400Respiratory rate 16 /minChair Spencer Work Phone: [facility]07-25-2024 14:00-4085ZkR5% (BldA) [Mass fraction]99 %Chair Spencer Work Phone: [facility]07-25-2024 14:00-0400Systolic blood pxdmejnw282 mm[Hg]Chair Stew Work Phone: [facility]07-18-2024 14:08-0400Diastolic blood izhzbtzo42 mm[Hg]Chair Stew Work Phone: [facility]07-18-2024 14:08-0400Heart rate85 /min Chair Stew Work Phone: [facility]07-18-2024 14:08-0400Respiratory rate 18 /minChair Stew Work Phone: [facility]07-18-2024 14:08-8701FaS7% (BldA) [Mass fraction]96 %Chair Stew Work Phone: [facility]07-18-2024 14:08-0400Systolic blood djrlmiqr962 mm[Hg]Chair Stew Work Phone: [facility]07-12-2024 14:44-0400Blood Pressure LocationMonica Saba 182-2040Vckfor-Ehxsd[address] [place], [place] 1151607-12-2024 14:44-0400Body yhbsdebuumu43.34 [degF]Monica Saba 338-3153Vreopr-Uhtkc[address] [place], [place] 1151607-12-2024 14:44-0400Diastolic blood fkvogegx83 mm[Hg]Monica Saba 648-6460Ecukas-Viyjc[address] [place], [place] 1151607-12-2024 14:44-0400Heart rate85 /Jennifer Saba 425-8819Krfypt-Hkiet[address] [place], [place] 1151607-12-2024 14:44-0400Respiratory rate16 /Jennifer Saba 635-0933Topkza-Pkzzk[address] [place], [place] 1151607-12-2024 14:44-3461JrD5% (BldA) [Mass fraction]99 %Monica Saba 947-0777Pxamje-Sssoa[address] [place], [place] 1151607-12-2024 14:44-0400Systolic blood pkwkycyu992 mm[Hg]Monica Saba 640-0305Irwack-Zxbcg[address] [place], [place] 1151606-25-2024 16:48-0400Blood Pressure LocationLourdes Garber 907-4813Polvde-Rspwu[address] [place], [place] 1151606-25-2024 16:48-0400Body cehpsvqprqo93.52 [degF]Lourdes Garber 063-3746Byajjy-Hqtdy[address] [place], [place] 1151606-25-2024 16:48-0400Diastolic blood cjwidumw07 mm[Hg]Lourdes Garber 922-5765Dukijf-Odmqi[address] [place], [place] 1151606-25-2024 16:48-0400Heart rate86 /minLourdes Garber 154-5377Yiriix-Fdgod[address] [place], [place] 1151606-25-2024 16:48-7324VcN6% (BldA) [Mass fraction]99 %Lourdes Garber 870-8956Hrpbkc-Sxiul[address] [place], [place] 1151606-25-2024 16:48-0400Systolic blood napkqqfx249 mm[Hg]Lourdes Garber 024-0324Owmlnp-Krjvj[address] [place], [place] 1151605-31-2024 21:17-0400Body mmbyngjdblw39.06 [degF]Benny Uribe [address]05-31-2024 21:17-0400 Diastolic blood jidcnelf19 mm[Hg]Benny Uribe [address] [place], [place] 7704505-31-2024 21:17-0400Heart rate67 /minBenny Uribe [address] [place], [place] 7704505-31-2024 21:17-0400Mean blood xwrkwzyo96 mm[Hg]Benny Uribe [address] [place], [place] 7704505-31-2024 21:17-4518GtW0% (BldA) [Mass fraction]95 %Benny Uribe [address] [place], [place] 7704505-31-2024 21:17-0400 Systolic blood mm[Hg]Benny Uribe [address] [place], [place] 7695305-31-2024 20:00-0400 Diastolic blood bqehkyvc43 mm[Hg]Benny Uribe [address] [place], [place] 7695305-31-2024 20:00-0400Heart rate78 /minBenny Uribe [address] [place], [place] 7695305-31-2024 20:00-0400Mean blood znzaeiho41 mm[Hg]Benny Uribe [address] [place], [place] 7695305-31-2024 20:00-0400 Respiratory rate20 /minBenny Uribe [address] [place], [place] 7695305-31-2024 20:00-0400 Systolic blood scpvzazh413 mm[Hg]Benny Uribe [address] [place], [place] 7695305-31-2024 19:30-0400 Diastolic blood diyqemwv28 mm[Hg]Benny Uribe [address] [place], [place] 7695305-31-2024 19:30-0400Heart rate80 /minBenny Uribe [address] [place], [place] 7695305-31-2024 19:30-0400Mean blood mm[Hg]Benny Uribe [address] [place], [place] 7695305-31-2024 19:30-0400 Respiratory rate18 /minBenny Uribe [address] [place], [place] 7695305-31-2024 19:30-0730YpK5% (BldA) [Mass fraction]100 %Benny Uribe [address] [place], [place] 7695305-31-2024 19:30-0400 Systolic blood bftiyaxv745 mm[Hg]Benny Uribe [address] [place], [place] 7695305-31-2024 19:00-0400 Respiratory rate17 /minBenny Uribe [address] [place], [place] 7695305-31-2024 18:32-0400Body cuhylolywaq05.42 [degF]Benny Uribe [facility]05-31-2024 18:32-0400Heart rate69 /minAntonderik Rony [facility]05-31-2024 17:46-0400 Diastolic blood mm[Hg]JANET DUNHAM 478-6426Sbbqtz-Jzfjd[address] [place] [address] [facility] Jqvd29-70-9819 17:46-0400Mean blood mm[Hg]BROAD TOP DUNHAM 539-4670Pqxouw-Gskou[address] [place] [address] [facility] Ukgs57-77-7162 17:46-0400Systolic blood ukbegjmg772 mm[Hg][facility] 846-6941Wgmqfl-Akump[address] [place] [address] [facility] Awva65-10-9501 17:40-0400Blood Pressure LocationFRANCJONEL DUNHAM 802-0368Yzwqid-Dskde[address] [place] [address] [facility] Ayeq37-15-9168 17:40-0400Body flznbffgban64.88 [degF][facility] 239-0542Ciwtmu-Oissc[address] [place] [address] [facility] Qdxb35-06-8838 17:40-0400Diastolic blood cusgaimv56 mm[Hg][facility] 226-5265Pdzqya-Qggux[address] [place] [address] [facility] Nyba74-77-5383 17:40-0400Heart rate79 /minFRPRITESH DUNHAM 571-3170Xulxtn-Aygiy[address] [place] [address] [facility] Xbmc54-79-7514 17:40-8504AtW1% (BldA) [Mass fraction]97 %BROAD TOP DUNHAM 672-1654Grteue-Dzouk[address] [place] [address] [facility] Prmi14-20-8358 17:40-0400Systolic blood rcuihbdk777 mm[Hg]JANET DUNHAM 119-4041Aavzrq-Yrzpf[address] [place] [address] [facility] Nsww64-62-1658 11:42-0400Blood Pressure LocationScott KAPLE 100-9726Mclyzj-RgiezBucyrus Community Hospital04-05-2024 11:42-0400Body voarazsqasd19.06 [degF]Penelope CASAS 672-9405Rfzife-AvpucBucyrus Community Hospital04-05-2024 11:42-0400Diastolic blood uukffuck56 mm[Hg]Penelope CASAS 683-7667Fmasjz-TgklqBucyrus Community Hospital04-05-2024 11:42-0400Heart rate72 /minScott KAPLE 344-5300Tvdgun-IlwjpBucyrus Community Hospital04-05-2024 11:42-0400Respiratory rate16 /minScott KAPLE 989-9996Shxeyt-QgwsrBucyrus Community Hospital04-05-2024 11:42-3902YvM2% (BldA) [Mass fraction]99 %Penelope CASAS 638-0281Jjwayi-InnjqBucyrus Community Hospital04-05-2024 11:42-0400Systolic blood mm[Hg]Penelope CASAS 877-9097Ifzlwx-RxivoBucyrus Community Hospital02-16-2024 14:05-0500Body bajijl142.7 Jerry Calix MD Work Phone: [facility]02-16-2024 14:05-0500Body temperature 97.39 [degF]Kristofer Calix MD Work Phone: [facility]02-16-2024 14:05-0500Body qkuygl512.1 kgKristofer Calix MD Work Phone: [place] [address]-16-2024 14:05-0500Diastolic blood mm[Hg]Kristofer Calix MD Work Phone: [facility]02-16-2024 14:05-0500Heart rate87 /min Kristofer Calix MD Work Phone: [place] [address]-16-2024 14:05-0500Respiratory rate 16 /minKristofer Calix MD Work Phone: [facility]02-16-2024 14:05-3645LfT5% (BldA) [Mass fraction]95 %Kristofer Calix MD Work Phone: [facility]02-16-2024 14:05-0500Systolic blood lvldtzgu938 mm[Hg]Kristofer Calix MD Work Phone: [facility]01-26-2024 11:11-0500Blood Pressure LocationScott KAPLE [address] [place], [place] 1150101-26-2024 11:11-0500Body yhmrdzokcxt64.7 [degF]Penelope KAPLE [address] [place], [place] 1150101-26-2024 11:11-0500Diastolic blood yfohvvcw46 mm[Hg]Penelope KAPLE 322-9923Yfjidk-Wcnlq[address]01-26-2024 11:11-0500Heart rate76 /minScott KAPLE 365-4314Vdylth-Wqalu[address] [place], [place] 1151601-26-2024 11:11-0500Respiratory rate18 /minScott KAPLE [address] [place], [place] 1150101-26-2024 11:11-5266IbQ9% (BldA) [Mass fraction]98 %Penelope KAPLE [address] [place], [place] 1150101-26-2024 11:11-0500Systolic blood rtquluri943 mm[Hg]Penelope KAPLE 149-4794Ftncwx-Uqepg[address]10-19-2023 09:41-0400Blood Pressure LocationScott KAPLE 690-1648Zjugat-Rbrke[address] [place], [place] 1151610-19-2023 09:41-0400Body viccxysvwxw27.42 [degF]Penelope KAPLE 629-2790Rhklbt-Gvcqg[address] [place], [place] 1151610-19-2023 09:41-0400Diastolic blood wiyzwawa21 mm[Hg]Penelope PRAVEEN 720-0842Kkuuaw-Pzkjp[address] [place], [place] 1151610-19-2023 09:41-0400Heart rate80 /minScott KAPLE 905-9170Nsafwy-Uhswg[address] [place], [place] 1151610-19-2023 09:41-0400Respiratory rate18 /minScott KAPLE 931-6448Czfrjz-Diyth[address] [place], [place] 1151610-19-2023 09:41-7268BaA0% (BldA) [Mass fraction]98 %Penelope STEPHANIBEN 124-2584Cdmcqm-Ljpoi[address]10-19-2023 09:41-0400Systolic blood azryfxzd627 mm[Hg]Penelope PRAVEEN 173-7965Xspfvc-Lrbfr[address]06-23-2023 09:44-0400Blood Pressure LocationScott STEPHANILE [address] [place], [place] 1150106-23-2023 09:44-0400Body .24 [degF]Penelope PRAVEEN [address] [place], [place] 1150106-23-2023 09:44-0400Diastolic blood mpuxqpxw19 mm[Hg]Penelope CASAS 922-8526Ewuuvh-Vgbvp[address]06-23-2023 09:44-0400Heart rate88 /minScott STEPHANILE 147-7845Gjmhpc-Iokfs[address] [place], [place] 1151606-23-2023 09:44-0400Respiratory rate18 /minScott KAPLE 398-8316Kersen-Gizzq[address] [place], [place] 1151606-23-2023 09:44-9525OlO8% (BldA) [Mass fraction]98 %Penelope CASAS 676-4414Wisgrq-Ctgbp[address] [place], [place] 1151606-23-2023 09:44-0400Systolic blood igbnfpyw777 mm[Hg]Penelope CASAS 713-6371Erqbaq-JmebuBucyrus Community Hospital03-30-2023 13:18-0400Body ccnuvp418.7 cmVramos Calix MD Work Phone: [facility]03-30-2023 13:18-0400Body temperature 97.5 [degF]Kristofer Calix MD Work Phone: [facility]03-30-2023 13:18-0400Body .78 kgKristofer Calix MD Work Phone: [facility]03-30-2023 13:18-0400Diastolic blood onvqtcqi47 mm[Hg]Kristofer Calix MD Work Phone: [facility]03-30-2023 13:18-0400Heart rate76 /min Kristofer Calix MD Work Phone: [facility]03-30-2023 13:18-0400Respiratory rate 16 /minKristofer Calix MD Work Phone: [facility]03-30-2023 13:18-6494FoI0% (BldA) [Mass fraction]97 %Kristofer Calix MD Work Phone: [facility]03-30-2023 13:18-0400Systolic blood idlghizg181 mm[Hg]Kristofer Calix MD Work Phone: [facility]12-22-2022 13:45-0500Body temperature 98.71 [degF]Chair Stew Work Phone: [facility]12-22-2022 13:45-0500Diastolic blood srwgheiv78 mm[Hg]Chair Stew Work Phone: [facility]12-22-2022 13:45-0500Heart rate85 /min Chair Stew Work Phone: [place] [address]-22-2022 13:45-0546VuQ1% (BldA) [Mass fraction]97 %Chair Stew Work Phone: [facility]12-22-2022 13:45-0500Systolic blood yooncngi180 mm[Hg]Chair Spencer Work Phone: [facility]12-07-2022 16:27-0500Diastolic blood pjbielai04 mm[Hg]Chair Spencer Work Phone: [phone] [address]-07-2022 16:27-0500Heart rate84 /min Chair Stew Work Phone: [place] [address]-07-2022 16:27-0500Respiratory rate 18 /minChair Stew Work Phone: [place] [address]-07-2022 16:27-6854UoL3% (BldA) [Mass fraction]96 %Chair Stew Work Phone: [facility]12-07-2022 16:27-0500Systolic blood zbumhoqw302 mm[Hg]Chair Stew Work Phone: [facility]11-28-2022 14:20-0500Body tysbdh254.7 cmVramos Calix MD Work Phone: [facility]11-28-2022 14:20-0500Body temperature 97.39 [degF]Kristofer Calix MD Work Phone: [place] [address]-28-2022 14:20-0500Body .23 kgKristofer Calix MD Work Phone: [place] [address]-28-2022 14:20-0500Diastolic blood lmlaskhk18 mm[Hg]Kristofer Calix MD Work Phone: [place] [address]-28-2022 14:20-0500Heart xaet045 /minKristofer Calix MD Work Phone: [place] [address]-28-2022 14:20-0500Respiratory rate 16 /minKristofer Calix MD Work Phone: [facility]11-28-2022 14:20-9272ZjE2% (BldA) [Mass fraction]97 %Kristofer Calix MD Work Phone: [facility]11-28-2022 14:20-0500Systolic blood omfzipbk694 mm[Hg]Kristofer Calix MD Work Phone: [facility]10-03-2022 11:46-0400Body rredim505.7 cmVramos Calix MD Work Phone: [facility]10-03-2022 11:46-0400Body temperature 97.2 [degF]Kristofer Calix MD Work Phone: [facility]10-03-2022 11:46-0400Body psdosj804.42 kgKristofer Calix MD Work Phone: [facility]10-03-2022 11:46-0400Diastolic blood yiujyvok31 mm[Hg]Kristofer Calix MD Work Phone: [facility]10-03-2022 11:46-0400Heart rate88 /min Kristofer Calix MD Work Phone: [facility]10-03-2022 11:46-0400Respiratory rate 16 /minKristofer Calix MD Work Phone: [facility]10-03-2022 11:46-9949NlW8% (BldA) [Mass fraction]99 %Kristofer Calix MD Work Phone: [facility]10-03-2022 11:46-0400Systolic blood mm[Hg]Kristofer Calix MD Work Phone: [facility]04-22-2022 10:46-0400Blood Pressure [facility]onJULISAMINNEAP[facility] 042-5756Pvkohl-PtoroSelect [facility] 04-22-2022 10:46-0400Diastolic blood mm[Hg] PERNELL SIDELL 613-4250Gimped-FevdgSelect [facility] 04-22-2022 10:46-0400Heart rate96 /minDERIK SIDELL 795-8634Hctdrj-DbdsfSelect [facility] 04-22-2022 10:46-6243YgI2% (BldA) [Mass fraction]99 % PERNELL SIDELL 320-5140Yicmfp-VbokySelect Medical [facility] 04-22-2022 10:46-0400Systolic blood tzjxehxl630 mm[Hg] PERNELL SIDELL 777-0737Yoezek-NeeipSelect Medical [facility] Encounters Encounter DateEncounter [facility] ProviderFacilityStart: 03-11-2025 End: 60-83-9299uavdbbstxyIZPTKBUniversity Hospitals Geauga Medical Centertart: 03-11-2025 End: 66-27-2117Psrmnj outpatient visit 25 minutesSana Palma MD Work Phone: [phone]-[facility]cl[facility] Comment on above:Gestational diabetes mellitus (GDM) in second trimester controlled on oral hypoglycemic drug (Primary Dx); Antiphospholipid syndromeStart: 03-10-2025 End: 89-62-0949Pcmezl flowsheetCorey Montez DO Work Phone: [facility] OBGYNStart: 03-10-2025 End: 96-00-2004Esbmyz flowsheetCorey Montez DO Work Phone: NOZL [facility] OBGYNStart: 03-10-2025 End: 59-90-7262srbcxzpvbyURUBY FAZIONot AvailableStart: 03-06-2025 End: 75-28-6914Wrkobddlp Result EncounterCorey Montez DO Work Phone: noms External Department UnsolicitedStart: 03-06-2025 End: 03-99-7192Bipfiuzsi Result EncounterCorey Montez DO Work Phone: noms External Department UnsolicitedStart: 03-02-2025 End: 12-37-8479egcibhjcpnUUKKX MARTINEZFacility:[facility] Hospitaltart: 02-27-2025 End: 69-46-7296Vjsgrggcb Result EncounterCorey Montez DO Work Phone: noms External Department UnsolicitedStart: 02-27-2025 End: 22-28-1151Vtrgbgkic Result EncounterCorey Montez DO Work Phone: noms External Department UnsolicitedStart: 02-23-2025 End: 25-52-5608Uxnduq flowsheetCorey Montez DO Work Phone: NOCR [facility]BGYNStart: 02-23-2025 End: 05-72-9027Risboa flowsheetCorey Montez DO Work Phone: noms Piyush OBGYNStart: 02-23-2025 End: 77-35-6829djmcxgxajjFHYDA FAZIONot AvailableStart: 02-23-2025 End: 36-49-2738Hpbmpc outpatient visit 15 minutesCorey Montez DO Work Phone: noms [facility]ett OBGYNComment on above:Third trimester ([facility]); 30 weeks gestation of ([facility])Start: 02-20-2025 End: 44-59-1534Giticswtf Result EncounterCorey Montez DO Work Phone: noms External Department UnsolicitedStart: 02-20-2025 End: 08-68-3073Eblqkfpad Result EncounterCorey Montez DO Work Phone: noms External Department UnsolicitedStart: 02-17-2025 End: 93-58-7213Qbdooszee Result EncounterCorey Montez DO Work Phone: noms External Department UnsolicitedStart: 02-17-2025 End: 39-55-7766Gpinxumho Result EncounterCorey Montez DO Work Phone: noms External Department UnsolicitedStart: 02-16-2025 End: 62-24-2270Jfnjqh consultation new/estab patient 80 Héctor Callahan MD MPH Work Phone: [facility] HospitalComment on above:Antiphospholipid syndrome (Primary Dx); Antiphospholipid syndrome complicating , antepartum; History of CVA (cerebrovascular accident); Coordination of complex care; 29 weeks gestation of pregnancyStart: 02-16-2025 End: 53-54-1968segobmtnjaRJNBT REDDY AMBATIChillicothe Hospitaltart: 02-10-2025 End: 74-93-9544Lpxsplugj encounterAnnita WELLS Work Phone: [phone][facility] Start: 02-09-2025 End: 93-11-0601hdrkxwfugeQHXQW FAZIONot AvailableStart: 02-09-2025 End: 17-15-8226Xiwsev outpatient visit 15 minutesCorey Montez DO Work Phone: noms [facility] OBGYNComment on above:Third trimester ([facility]); 28 weeks gestation of ([facility]); Anemia complicating childbirth ([facility]); Anticoagulant long-term use; Antiphospholipid antibody positive; Blood pressure elevated without history of HTN; Coagulation defect, unspecified ([facility])Start: 02-06-2025 End: 52-94-7984atozrprbcjJSHWPBHR P DOCHEVASt. Mary's Medical Center HospitalStart: 02-06-2025 End: 61-45-1851Nzcfiu outpatient visit 25 minutesMukul Noyola MD Work Phone: [phone]-Uxtsp Medicine at [facility] Comment on above:27 weeks gestation of (Primary Dx); Multigravida of advanced maternal age in third trimester; Gestational diabetes mellitus (GDM) in second trimester controlled on oral hypoglycemic drug; Antiphospholipid syndrome complicating , antepartum; Antiphospholipid syndromeStart: 02-05-2025 End: 56-08-8514ynkmopbmdxORKYR [facility] Ambulatory PPGStart: 02-03-2025 End: 31-36-2086veezwbiwycMlfmz R FAOFacility:FTMCStart: 01-19-2025 End: 58-65-0987mrcxvvftotDSUFA FAONot AvailableStart: 01-19-2025 End: 09-58-7745Gxaclv outpatient visit 15 minutesCorey Montez DO Work Phone: NOID Piyush OBGYNComment on above:Second trimester ([facility]); 25 weeks gestation of ([facility]); Gestational diabetes mellitus (GDM), antepartum, gestational diabetes method of control unspecified([facility]); Anticoagulant long-term use; Antiphospholipid antibody positive; Antiphospholipid antibody syndrome ([facility])Start: 11-87-2644cangtwnnbsYximt R FAZIOFacility:FTMCStart: 01-13-2025 End: 82-48-2073Uuknrm outpatient visit 25 minutesColleen Maxim Mays PA-C Work Phone: [phone]-Paole Medicine at [facility] Comment on above:Gestational diabetes mellitus (GDM) in second trimester controlled on oral hypoglycemic drug (Primary Dx); Antiphospholipid syndrome; Other specified hypothyroidism; Antiphospholipid syndrome complicating , antepartumStart: 01-13-2025 End: 98-64-7874mtsxtzwmssRYZNIDO E [facility]ulltart: 01-09-2025 End: 97-00-2790Hpsisoeml Batsheva Noyola MD Work Phone: [phone]-Yqstu Medicine at [facility] Comment on above:Antiphospholipid syndrome (Primary Dx)Start: 01-07-2025 End: 96-98-2849Yogqqixya encounterJacque Pat [facility]: 01-05-2025 End: 59-14-4275ebftwacxkzLSWGB FAONot AvailableStart: 01-05-2025 End: 42-61-0684Dyaknx outpatient visit 15 minutesCorey Hatchbuck Work Phone: NOMS Pickett OBGYNComment on above:Second trimester ([facility]); 23 weeks gestation of ([facility]); Thyroid disease ; Gestational diabetes mellitus (GDM), antepartum, gestational diabetes method of control unspecified([facility]); Multigravida of advanced maternal age in second trimester ([facility]); H/O loss; Lightheaded; DizzinessStart: 01-05-2025 End: 62-45-9274Ltpdmp flowsheetUnitas Globaly Hatchbuck Work Phone: NONO Emmett OBGYNStart: 01-05-2025 End: 77-56-5538Imofhy flowsheetCore Montez DO Work Phone: NOAN Piyush OBGYNStart: 01-05-2025 End: 18-26-1304Mfplkpqewiclr procedureBoston [facility]ying-[facility] RNMaternal- Medicine at [facility] HospitalComment on above:Multigravida of advanced maternal age [...] Family history of autism; HyponatremiaStart: 01-01-2025 End: 59-83-9643Gsosds consultation new/estab patient 80 Margaux Noyola MD Work Phone: [facility] Medicine [place] [place] on above: 22 weeks gestation of (Primary Dx); Antiphospholipid syndrome complicating , antepartum; History of stroke; History of loss in prior , currently in second trimester; Gestational diabetes mellitus (GDM) in second trimester controlled on oral hypoglycemic drug; Multigravida of advanced maternal age in second trimester; Hypothyroidism affecting in second trimester; Family history of autism; HyponatremiaStart: 01-01-2025 End: 19-23-2987Tnmiej Simon Warren RNMaternal Medicine [place] Comment on above:Multigravida of advanced maternal age in second trimester (Primary Dx); Antiphospholipid syndrome complicating , antepartum; Gestational diabetes mellitus (GDM) in second trimester controlled on oral hypoglycemic drug; Insulin controlled gestational diabetes mellitus (GDM) in second trimester; AMA (advanced maternal age) multigravida 35+, second trimester; Hypothyroidism, unspecified typeStart: 12-26-2024 End: 35-22-8926Edykop Ty Noyola MD Work Phone: pK[facility] - LaborComment on above: Gestational diabetes mellitus (GDM) in second trimester controlled on oral hypoglycemic drug (Primary Dx)Start: 12-23-2024 End: 30-75-6888Itlkicb encounter procedureKatherine Negrete APRN.CNP Work Phone: Hematology/OncologyStart: 12-23-2024 End: 68-38-2071zpcsfuzthoLrbigJuju Negrete APRN.CNP Work Phone: Hematology/OncologyComment on above:Antiphospholipid antibody positive (Primary Dx); Iron deficiency anemia secondary to blood loss (chronic); Vitamin D deficiency; Primary hypercoagulable state (HCC)Start: 12-17-2024 End: 48-68-7145hbybvroonlJSUKITEU BROGANSt. Mary's Medical Center HospitalStart: 12-17-2024 End: 68-40-0403Ozgoss outpatient visit 25 minutesAlisa HUTTON Work Phone: [phone]-Xrncw Medicine at [facility] Comment on above:Gestational diabetes mellitus (GDM) in second trimester controlled on oral hypoglycemic drug (Primary Dx)Start: 12-17-2024 End: 45-20-5547dnlmqdezlhGGDMMKXQ BROLima City Hospital HospitalStart: 12-16-2024 End: 98-92-7184Ckjfinifb Result EncounterCorey Montez DO Work Phone: noms External Department UnsolicitedStart: 12-16-2024 End: 26-14-9111Jbtqcyiqm Result EncounterCorey Montez DO Work Phone: noms External Department UnsolicitedStart: 12-12-2024 End: 86-09-7773Eiriwmliz encounterDenikijacinta Kendall LD Work Phone: [phone]-Dzxob Medicine at [facility] Start: 12-11-2024 End: 31-13-6917Zwjqvd flowsheetCorey Montez DO Work Phone: noms Piyush OBGYNStart: 12-11-2024 End: 73-87-9773Vvkmbv flowsheetCorey Montez DO Work Phone: noms Emmett OBGYNStart: 12-11-2024 End: 69-39-2272Nggdrrxja Result EncounterCorey Montez DO Work Phone: noms External Department UnsolicitedStart: 12-11-2024 End: 65-55-2423kxvirmhgnvTPQNI FAZIONot AvailableStart: 12-11-2024 End: 54-58-0834Rzkdke outpatient visit 15 minutesCorey Montez DO Work Phone: noms Emmett OBGYNComment on above:19 weeks gestation of ([facility]); Second trimester ([facility]); Thyroid disease ; Multigravida of advanced maternal age in second trimester ([facility]); Gestational diabetes mellitus (GDM), antepartum, gestational diabetes method of control unspecified([facility])Start: 12-03-2024 End: 08-15-8799sjvehaqegrUTOOPJLY BROGANProMedica [facility] Community General Hospitaltart: 12-03-2024 End: 23-74-6858Kqgiew outpatient visit 25 minutesAlisa Saba CRISIS MANAGER-CLINICAL LAW PROFESSOR Work Phone: [phone]-Axmrn Medicine at [facility] Comment on above:Insulin controlled gestational diabetes mellitus (GDM) in second trimester (Primary Dx)Start: 12-03-2024 End: 05-18-2333Pqgszgqcl encounterAnni Abreu CMAMaternal- Medicine at [facility] Hospitaltart: 11-20-2024 End: 07-89-3538Fpwbvg flowsheetCorey Montez DO Work Phone: NOMS BCP OBStart: 11-20-2024 End: 24-64-0286Zhynje flowsheetCorey Montez DO Work Phone: NOMS BCP OBStart: 11-20-2024 End: 59-28-5470fshdpviplmFONGV FAZIONot AvailableStart: 11-20-2024 End: 05-15-2374Fssuda outpatient visit 15 minutesCorey Montez DO Work Phone: NOMS Emmett OBGYNComment on above:Second trimester ([facility]); 16 weeks gestation of ([facility]); Screening, , for anatomic survey ([facility]); Vaginal discharge; Sinus headacheStart: 11-19-2024 End: 73-02-3094ceisjrqqtwWkotjb M Frey RN Work Phone: [phone]-Dswse Medicine at [facility] Comment on above:Gestational diabetes mellitus (GDM), antepartum, gestational diabetes method of control unspecified(Primary Dx)Start: 11-04-2024 End: 14-03-3256Dtcwc Syd Noyola MD Work Phone: [phone]-Yehjw Medicine at [facility] Start: 10-30-2024 End: 67-34-8555Pgcnvu flowsheetCorey Montez DO Work Phone: NOMS BCP OBStart: 10-30-2024 End: 40-35-6588Amqzqd flowsheetCorey Montez DO Work Phone: NOMS BCP OBStart: 10-30-2024 End: 53-78-5083Nlztjn outpatient visit 15 minutesCorey Montez DO Work Phone: NOMS BCP OBComment on above:Second trimester ([facility]); 13 weeks gestation of ([facility]); Thyroid disease ; Multigravida of advanced maternal age in second trimester ([facility]); Gestational diabetes mellitus (GDM), antepartum, gestational diabetes method of control unspecified([facility]); Elevated glucose tolerance testStart: 10-30-2024 End: 63-09-5320dctwznfnhnKXZTM FAZIONot AvailableStart: 10-29-2024 End: 07-63-1694MuushkPniqgvBunny Paz APRN.CNP Work Phone: Hematology/OncologyComment on above:Refill Request Start: 10-28-2024 End: 19-79-4478Txolwcu encounter Valentine Negrete APRN.CNP Work Phone: Hematology/OncologyStart: 10-28-2024 End: 11-69-0813ilgrrrqroeAhpjkJuju Negrete APRN.CNP Work Phone: Hematology/OncologyComment on above:Primary hypercoagulable state (HCC) (Primary Dx); CVA, old, speech/language deficit; Cerebral hyponatremia; Personal history of TIA (transient ischemic attack)Start: 10-28-2024 End: 41-13-0717Ehufyajdc Gregoria Negrete APRN.CNP Work Phone: Cancer Appts MCComment on above:ResultsStart: 10-24-2024 End: 03-96-0854Fgjafbzth Gregoria Negrete APRN.CNP Work Phone: Hematology/OncologyComment on above:Lab OrdersStart: 10-20-2024 End: 16-26-9760BsyfzoHbwrl Abhyankar MD Work Phone: Hematology/OncologyComment on above:Refill Request Start: 10-13-2024 End: 45-04-5374RdzjkpDell Khan RNMaternal- Medicine at [facility] HospitalComment on above:Gestational diabetes mellitus (GDM), antepartum, gestational diabetes method of control unspecified(Primary Dx)Start: 10-06-2024 End: 17-59-8922Ywcefoijf Result EncounterCorey Montez DO Work Phone: noms External Department UnsolicitedStart: 10-06-2024 End: 20-46-2536Wrzhfgimg Result EncounterCorey Montez DO Work Phone: noms External Department UnsolicitedStart: 10-02-2024 End: 23-71-1452wrrtnsnhbvMLWWK FAZIONot AvailableStart: 10-02-2024 End: 43-68-2261Wuurwf outpatient visit 5 minutesNoms Bcp Ob Montez NurseNOMS BCP OBComment on above:GA: 3a8fSumlb: 09-11-2024 End: 87-31-9336Wuvmqvlab Result EncounterCorey Montez DO Work Phone: noms External Department UnsolicitedStart: 09-11-2024 End: 88-04-2588Kxgrkkdfm Result EncounterCorey Montez DO Work Phone: noms External Department UnsolicitedStart: 09-09-2024 End: 21-63-3460rmucsonmvaWdpzk A KAPLEFacility:Val PCStart: 09-09-2024 End: 00-68-7449Nevtwvc encounter procedureScomike CASAS [phone]-WzoohSumma Health [facility] Start: 09-07-2024 End: 35-03-4808hjztnctavhFfbov M. DempseyFacility:GIL NorwalkStart: 09-02-2024 End: 04-74-1306Fusibmbqk encounterNatmurphy Johnson RNHematology/OncologyComment on above:Patient UpdateStart: 08-26-2024 End: 00-32-2761Ndhvixjfl encounterKristofer Calix MD Work Phone: Hematology/OncologyComment on above:Lab OrdersStart: 08-23-2024 End: 94-91-5531zqsxkzcsloKijbe R FAZIOFacility:FTMCStart: 08-23-2024 End: 76-31-3660Nvlitlj encounter procedureCorecarmen Palmer MONTEZ [facility] Start: 07-25-2024 End: 26-48-4752EyljwlKmlhn Abhyankar MD Work Phone: Hematology/OncologyComment on above:Refill Request Start: 07-24-2024 End: 17-63-1968Xjvjnr flowsheetCorey Montez DO Work Phone: noms BCP OBStart: 07-24-2024 End: 03-97-5503Jhauil flowsheetCorey Montez DO Work Phone: noms BCP OBStart: 07-24-2024 End: 62-61-3851hmkbdzwsarLNQCN FAZIONot AvailableStart: 07-24-2024 End: 58-41-6630Rullzc outpatient visit 15 minutesCorey Montez DO Work Phone: noms BCP OBComment on above:Irregular menstrual cycle Start: 07-09-2024 End: 67-35-2127ihwnrmffbdBkubsef A VisciFacility:FTMCStart: 07-09-2024 End: 27-98-6695Edshizr encounter procedureInez Wakefield [facility] Start: 07-08-2024 End: 29-01-5690Epi-admission assessmentInez Wakefield [facility] Start: 07-07-2024 End: 70-80-4555nlwycssdznWynve A KAPLEFacilсветлана:Val PCStart: 06-30-2024 End: 61-43-8805godhnipruhFynqy A KAPLEFacility:Val PCStart: 06-30-2024 End: 54-23-2983Qchkxsr encounter procedureScomike CASAS [phone]-GrgunSumma Health [facility] Start: 06-23-2024 End: 35-50-6994Dpcehz outpatient visit 15 minutesCorey Montez DO Work Phone: noms [facility] OBComment on above:Vaginal bleeding; Dizziness; Abnormal TSH; Vaginal discharge; Pelvic pain in femaleStart: 06-23-2024 End: 14-15-9897cwtypwabdzVFLTA FAZIONot AvailableStart: 06-23-2024 End: 23-63-0315Ntewpldf Result EncounterCorey Montez DO Work Phone: noms External Department UnsolicitedStart: 06-23-2024 End: 42-00-2860Skncabso Result EncounterCorey Montez DO Work Phone: noms External Department UnsolicitedStart: 06-19-2024 End: 76-23-0126urduisbldcAFNIBB R CIERSEZWSKIFacility: MilanStart: 06-19-2024 End: 72-97-7080Peszhvj encounter procedureJACLYN Jeanine BACA [phone]-PmxnmSelect [facility] Start: 06-12-2024 End: 74-21-5906gyttqwtmzfTdjlz R SHYLAZIOFacility:FTMCStart: 06-12-2024 End: 46-94-9705Epyqxvn encounter procedureCorey R MONTEZ [facility] Start: 06-09-2024 End: 79-77-0607xlgdtwagtvVlarq A KAPLEFacility:Val PCStart: 06-09-2024 End: 01-39-5631Saebxri encounter procedureCorey R MONTEZ [facility] Start: 06-06-2024 End: 43-16-7329fqmcuyfecmRDHPHX A LEHMANNFacility:FT BellevueStart: 06-02-2024 End: 81-94-3931gsspwhvlhjSJECD FAZIONot AvailableStart: 06-02-2024 End: 65-97-9263Lgwszy outpatient visit 15 minutesCorey Montez DO Work Phone: noms BCP OBComment on above:Follow-up visit after miscarriage; Abnormal TSH; History of thyroid diseaseStart: 05-28-2024 End: 72-62-3182Ugmlthxpb encounterKristofer Calix MD Work Phone: Cancer Appts MCStart: 05-28-2024 End: 29-23-6637Riyibq outpatient visit 25 minutesKristofer Calix MD Work Phone: Hematology/OncologyComment on above:Primary hypercoagulable state (HCC) (Primary Dx); CVA, old, speech/language deficit; Iron deficiency anemia secondary to blood loss (chronic); Vitamin D deficiency; Antiphospholipid antibody syndrome (HCC)Start: 05-28-2024 End: 35-78-9753newvaamryiKAUQD ABHYANKARFacility:[facility] Hospitaltart: 18-16-2241ojtsvhskdmIdsbw A KAPFacility:Ellijay PCStart: 05-14-2024 End: 82-54-3818Uxhqpqvvo encounterNatmurphy Johnson RNHematology/OncologyComment on above:Patient UpdateStart: 05-10-2024 End: 15-37-2222Ylwjqadvz Result EncounterCorey Montez DO Work Phone: noms External Department UnsolicitedStart: 05-10-2024 End: 66-42-1706Bqqwmobri Result EncounterCorey Montez DO Work Phone: noms External Department UnsolicitedStart: 05-10-2024 End: 23-88-5796ihkbayleqhYftsv FazioFiWadsworth-[facility] Work Phone: Start: 05-10-2024 End: 68-59-5991Erchqgir ReferredCorey Montez DO Work Phone: [facility]-LAB Path Spec Piyush HospStart: 05-06-2024 End: 67-37-1548wnrbybufjtNSYWZ FAZIONot AvailableStart: 05-06-2024 End: 17-58-0097Xqszrv flowsheetCorey Montez DO Work Phone: noms BCP OBStart: 05-06-2024 End: 44-17-8557Pfqrnb flowsheetCorey Montez DO Work Phone: NOAF BCP OBStart: 05-06-2024 End: 32-93-0767feziuacbsjJMODS FAZIONot AvailableStart: 05-06-2024 End: 27-21-9020Ivcdam outpatient visit 15 minutesCorey Montez DO Work Phone: noms BCP OBComment on above:14 weeks gestation of ; Second trimester ; Confirm viability with history of miscarriage, ultrasoundStart: 04-28-2024 End: 21-13-8071FruivlCcdki Abhyankar MD Work Phone: Hematology/OncologyComment on above:Refill Request Start: 04-12-2024 End: 34-27-2614Ycvoyqnhl Result EncounterCorey Montez DO Work Phone: noms External Department UnsolicitedStart: 04-12-2024 End: 80-23-0625Bqhjaujwy Result EncounterCorey Montez DO Work Phone: noms External Department UnsolicitedStart: 04-05-2024 End: 10-20-2238Rglkrbdom Result EncounterCorey Montez DO Work Phone: noms External Department UnsolicitedStart: 04-05-2024 End: 17-64-0083Pocvdeyty Result EncounterCorey Montez DO Work Phone: noms External Department UnsolicitedStart: 04-04-2024 End: 88-62-3942shlsjnhafbTSXRJ FAZIONot AvailableStart: 04-04-2024 End: 54-71-5269Ggfvyt outpatient visit 5 minutesNoms Bcp Ob Montez NurseNOMS BCP OBComment on above:GA: 3a4cRrqek: 03-01-2024 End: 10-69-2742ddetvknwcvYojmp R FAZIOFacility:FTMCStart: 03-01-2024 End: 26-21-1509Jzxubcq encounter procedureCorey R MONTEZ [facility] Start: 02-27-2024 End: 23-98-1975msxxpmtlgjAydqz R FAZIOFacility:FTMCStart: 02-27-2024 End: 26-71-4320Ezcgtmrju encounterNatmurphy Johnson RNHematology/OncologyComment on above:Patient QuestionStart: 02-25-2024 End: 17-24-0268hsrtekmbkfMsykz R FAZIOFacility:FTMCStart: 02-25-2024 End: 42-62-4992Mkmlhty encounter procedureCorey R MONTEZ [facility] Start: 02-23-2024 End: 85-06-8839rzqlnjcoouZuayq A KAPLEFacility:FTMCStart: 02-23-2024 End: 82-28-5060Tuvmmpm encounter procedureCorey R MONTEZ [facility] Start: 02-05-2024 End: 02-03-3560cbxqurnlgiAkzle A STEPHANILEFacility:Val PCStart: 02-05-2024 End: 61-24-4707Kjqzlcv encounter procedureScott A KAPLE [phone]-ZnasiSumma Health [facility] Start: 02-05-2024 End: 54-58-0944Item adult monitoring check doneScott A STEPHANILE [phone]-WcqieSumma Health Wad[facility] - [facility] Start: 02-02-2024 End: 64-54-2157uxvaukzmfpTjroph GudimellaFacility:GIL TaylorkStart: 02-02-2024 End: 56-71-9424Pyvkyfx encounter procedurePreeti Merlincatiesherry [phone]-YhrjnSumma Health Wad[facility] Con[facility] Start: 23-31-0500lmjpfpxjtiFrpxt A STEPHANI Facility:Ellijay PCStart: 01-24-2024 End: 69-77-2804BujhhxMffmt Abhyankar MD Work Phone: Hematology/OncologyComment on above:Refill Request Start: 01-02-2024 End: 55-74-9341Keykuujgx encounterKristofer Calix MD Work Phone: Cancer Appts MCComment on above:ResultsStart: 01-02-2024 End: 95-55-8266Xgfvut outpatient visit 15 minutesKristofer Calix MD Work Phone: Hematology/OncologyComment on above:Iron deficiency anemia secondary to blood loss (chronic) (Primary Dx); Vitamin D deficiency; Malaise and fatigueStart: 12-17-2023 End: 85-13-4311Ctfueoluf encounterNatalimaxim Johnson RNHematology/OncologyStart: 12-06-2023 End: 37-45-0433fzxeeyuntjEyztvpnff L ClarkFacility:FTMCStart: 12-06-2023 End: 22-70-7155Qvuksca encounter procedureMonica Saba [facility] Start: 27-29-0470uvdfdhexusAdgmf A STEPHANI Facility:Ellijay PCStart: 11-29-2023 End: 63-37-4154lutbczuodjSqiio Abhyankar MD Work Phone: Hematology/OncologyComment on above:Iron infusion side effects?Refill RequestIron deficiency anemia of (Primary Dx); Iron deficiency anemia secondary to blood loss (chronic)Start: 11-22-2023 End: 85-64-7537isurggbbicDbcbb Angelito Claudio Work Phone: Hematology/OncologyComment on above:Iron deficiency anemia of (Primary Dx); Iron deficiency anemia secondary to blood loss (chronic)Start: 11-15-2023 Telephone encounterFinancial Navigator Delgado Work Phone: Hematology/OncologyStart: 11-15-2023 End: 91-90-7753nwjbminwjfIsmpv Angelito Stew Work Phone: Hematology/OncologyComment on above:Iron deficiency anemia of (Primary Dx); Iron deficiency anemia secondary to blood loss (chronic)Start: 11-09-2023 End: 85-59-7797Mtngjak encounter procedureElirachna Saba [phone]-BdcvxSumma Health [facility] Start: 11-09-2023 End: 87-11-8183Ytazhq WorkLori Penelope FLYNNematology/OncologyStart: 11-05-2023 Telephone encounterKristofer Calix MD Work Phone: Cancer Appts MCComment on above:AppointmentStart: 10-23-2023 End: 92-77-0349nxlczsczywKskqmmk Grace MisslerFacility:Val PCStart: 10-23-2023 End: 13-67-2717Topqkjy encounter procedureLourdes Garber [phone]-VaenjSumma Health [facility] Start: 09-28-2023 End: 24-02-8300Wetrhgpql department patient visitBenny Uribe [facility] Start: 09-28-2023 End: 29-71-4201abcumedalxWTDelma DUNHAMFacility:GIL TaylorkStart: 09-28-2023 End: 06-29-3953Qabzebk encounter procedureJANET DUNHAM [phone]-BhyazSumma Health [facility]ad[facility] Con[facility]ient [facility] Start: 24-66-5646Kaoceopht encounterKristofer Calix MD Work Phone: Canzqs Appts MCComment on above:Appointment RescheduledStart: 09-21-2023 End: 91-72-2590uogdtztaujOqmxs Abhyankar MD Work Phone: Hematology/OncologyComment on above:Iron deficiency anemia secondary to blood loss (chronic) (Primary Dx)Start: 09-21-2023 End: 91-07-2955Muvcruxfizya consultation with Song Calix MD Work Phone: Hematology/OncologyStart: 08-03-2023 End: 16-09-4341twyspsihajLbilu A KAPLEFacility:Val PCStart: 08-03-2023 End: 92-82-2527Hqszqkb encounter procedureScott Cecily CASAS [phone]-FoksySumma Health [facility] Start: 06-29-2023 End: 36-19-2891epcjjxiupjOdxmu A KAPLEFacility:Val PCStart: 06-29-2023 End: 70-30-0860Kfkwtzf encounter procedureScott A KAPLE [phone]-JwdhfSumma Health [facility] Start: 92-03-3954felyqipjilWomdgdd Powell lathe turner/OncologyComment on above:Lab results/recommendationsStart: 06-19-2023 E-mail encounter from Jose Carlos Johnson RNSANDUSKYStart: 06-15-2023 End: 91-55-5527Mhvfuw outpatient visit 25 minutesKristofer Calix MD Work Phone: Hematology/OncologyComment on above:Vitamin D deficiency (Primary Dx); Hypercalcemia; Iron deficiency anemia secondary to blood loss (chronic)Start: 06-15-2023 Telephone encounterKristofer Calix MD Work Phone: Cancer Appts MCComment on above:ResultsStart: 03-08-8473Nmvuctyda encounterKristofer Calix MD Work Phone: Hematology/OncologyComment on above:Lab OrdersStart: 40-40-9102Iwkapolug encounterKristofer Calix MD Work Phone: Cancer Appts MCComment on above:Future Appointment Start: 05-31-2023 End: 03-89-3012dnffkllgajIbaoc Abhyankar MD Work Phone: Hematology/OncologyComment on above:Primary hypercoagulable state (HCC) (Primary Dx); CVA, old, speech/language deficit; Hypercalcemia; Vitamin D deficiency; Iron deficiency anemia secondary to blood loss (chronic); Malaise and fatigueStart: 05-31-2023 End: 94-34-9757Xozidxhaizxk consultation with Song Calix MD Work Phone: SANDUSKYStart: 05-25-2023 End: 26-66-2780jqfwufqilsUehbl A KAPLEFacility:Val PCStart: 05-25-2023 End: 86-59-1245Haeqzxc encounter Coreen CASAS [phone]-IepzbSumma Health [facility] Start: 05-01-2023 End: 35-16-8046anfkjrkexgPctry A KAPLEFacility:FTMCStart: 04-27-2023 End: 97-98-5637Nih Drop offSelissa CASAS [facility] Start: 04-27-2023 End: 54-14-8375mhwpmatbtwHfmbn A KAPLEFacility:FTMCStart: 04-25-2023 End: 16-68-6077spcvdcyymtCleo L SchwabFacility:FT FM BellevueStart: 03-19-2023 End: 60-04-3147hvinoazqveOumgjVernell Calix MD Work Phone: Hematology/OncologyComment on above:Primary hypercoagulable state (HCC) (Primary Dx); Iron deficiency anemia secondary to blood loss (chronic); Vitamin D deficiency; CVA, old, speech/language deficit; Antiphospholipid antibody syndrome (HCC)Start: 03-19-2023 End: 38-07-8003Kbpjaegcwvnz consultation with Song Calix MD Work Phone: SANDUSKYStart: 02-15-2023 End: 58-12-1659ysctbrmhtsCealp A KAPLEFacility:Ellijay PCStart: 02-15-2023 End: 24-32-0913Rhgagga encounter procedureScomike CASAS [phone]-RkbycSumma Health [facility] - [facility] Start: 42-02-3497vshmifrpdqCgprf A KAPLE Facility:Ellijay PCStart: 12-26-2022 End: 40-27-8050trxanargayZyyxqci Grace MisslerFacility:Ellijay PCStart: 12-26-2022 End: 85-92-2353Pfxxdpv encounter procedureLourdes Garber [phone]-FjgapSumma Health [facility] Start: 12-22-2022 End: 25-83-5903zofghgdgpvImhpm Abhyankar MD Work Phone: Hematology/OncologyComment on above:Primary hypercoagulable state (HCC) (Primary Dx); Iron deficiency anemia of ; Iron deficiency anemia secondary to blood loss (chronic); Vitamin D deficiencyStart: 12-22-2022 End: 24-44-2159Ujxuwgdaaqky consultation with Song Calix MD Work Phone: SANDUSKYStart: 53-95-5547Ldcizgxww encounterKristofer Calix MD Work Phone: Cancer Appts MCComment on above:AppointmentStart: 10-20-2022 End: 31-67-9249Nckcomw encounter procedureScott A KAPLE [phone]-CykrtSumma Health [facility] Start: 09-28-2022 End: 94-66-8708kodlunmxucUstugVernell Calix MD Work Phone: Hematology/OncologyComment on above:Primary hypercoagulable state (HCC); CVA, old, speech/language deficit; Cerebral hyponatremiaStart: 09-28-2022 End: 48-97-4861Amaczqheyrik consultation with Song Calix MD Work Phone: SANDUSKYStart: 09-26-2022 End: 60-58-0240Hmvkljp encounter procedureKristofer Calix [facility] Start: 11-06-7202Zkjfmsnbi encounterValeri Yeung RN Hematology/OncologyComment on above:OrdersStart: 09-05-2022 End: 90-11-2668Ncnbreb encounter procedureCorey R MONTEZ [facility] Start: 08-07-2022 End: 94-22-7096Dwjpazj encounter procedureCorey R MONTEZ [facility] Start: 07-27-2022 End: 71-08-8160Ogaemf outpatient visit 25 minutesKristofer Calix MD Work Phone: Hematology/OncologyComment on above:Primary hypercoagulable state (HCC) (Primary Dx); Iron deficiency anemia secondary to blood loss (chronic); CVA, old, speech/language deficitStart: 62-52-3709DhejajTbxvx Abhyankar MD Work Phone: Hematology/OncologyComment on above:Refill Request Start: 05-16-2022 End: 82-83-2189zqjnhxpbpgRE WILTON FAZIOFacility:Q2Dnqma: 05-10-2022 End: 68-91-8010kmdqxvqchnCB WILTON FAZIOFacility:I8Gsxgp: 05-08-2022 End: 58-57-9030Kthppfpdhc and management of inpatientDR KALPANA THOMAS Facility:O8Nsxuh: 05-05-2022 End: 37-98-4543wovlrbzdjsUY KALPANA THOMASFacility:Y8Hwngf: 05-01-2022 End: 33-62-2855whhzcbbtlwQN WILTON FAZIOFacility:F6Zennf: 04-28-2022 End: 45-85-7541avwmmcgjdeSQ WILTON FAZIOFacility:Q7Qwbqs: 04-24-2022 End: 53-68-8300scptligbrtGD KALPANA THOMASFacility:U0Qeiwk: 04-20-2022 End: 56-57-4473qyknpnqfhyMewoq 10 Stew Work Phone: Hematology/OncologyComment on above:Iron deficiency anemia secondary to blood loss (chronic) (Primary Dx); Iron deficiency anemia of pregnancyStart: 04-19-2022 End: 48-07-4042urkuveutbxAC WILTON FAZIOFacility:S6Rjolu: 04-14-2022 End: 73-70-3181uumlqmdprgSL WILTON FAZIOFacility:C4Gzfrl: 04-07-2022 End: 16-81-8110nljybkptxlFJ WILTON FAZIOFacility:L2Ztjsl: 75-38-1940ApkdvfAxfmlSalvador Calix MD Work Phone: Hematology/OncologyComment on above:Refill Request Start: 04-05-2022 End: 53-41-1391syqfejixdkNtttk 11 Stew Work Phone: Hematology/OncologyComment on above:Iron deficiency anemia secondary to blood loss (chronic) (Primary Dx); Iron deficiency anemia of pregnancyStart: 59-71-5810Hcjguntfe Foster Gonzalez Hematology/OncologyComment on above:Appointment; Patient Question; Medication Question; OrdersStart: 03-31-2022 End: 09-35-4087pfpfgohdcjTG WILTON FAZIOFacility:V7Oqmfo: 03-27-2022 End: 04-60-8869kttvohuhwwZjscvVernell Calix MD Work Phone: Hematology/OncologyComment on above:Iron deficiency anemia secondary to blood loss (chronic); Iron deficiency anemia of pregnancyStart: 03-27-2022 End: 33-03-0454Zmfwbyw encounter procedureKristofer Calix MD Work Phone: SANDUSKYStart: 01-04-4767Fcranuzfx encounterKristofer Calix MD Work Phone: Cancer Appts MCComment on above:ResultsStart: 03-24-2022 End: 33-61-9092xpmfimaoiyQI WILTON FAZIOFacility:J6Bxgpn: 03-16-2022 End: 00-94-4706nvpcfpjvfhLX WILTON FAZIOFacility:A6Gbgho: 02-24-2022 End: 75-24-9217icdypglztsBF WILTON FAZIOFacility:G0Gqmme: 02-14-2022 End: 97-68-9824eodkcdbxqkZF WILTON FAZIOFacility:L2Llnlt: 01-30-2022 End: 46-64-8284tkzkqrmeonJbdpyVernell Calix MD Work Phone: Hematology/OncologyComment on above:Primary hypercoagulable state (HCC) (Primary Dx); CVA, old, speech/language deficit; Antiphospholipid antibody syndrome (HCC); Anemia, unspecified typeStart: 01-30-2022 End: 68-92-9826Cmkliqt encounter Dionicio Calix MD Work Phone: SANDUSKYStart: 01-24-2022 End: 76-36-2688jxxyhxgmljBH WILTON FAZIOFacility:I7Zxzex: 01-24-2022 End: 60-56-1448inloocfakuPT WILTON FAZIOFacility:P0Fqmaq: 01-07-2022 End: 86-85-5785ibwlroyiozKN WILTON FAZIOFacility:S1Osshq: 19-85-2943AwvovsVknjmlAwilda Pope RN Work Phone: Hematology/OncologyComment on above:Refill Request Start: 12-28-2021 End: 68-92-0643mmlmgmoqaxES WILTON FAZIOFacility:J1Emeki: 11-21-2021 End: 20-20-3922intlkcvcteQBWXV A KAPLECleveland Clinic Union Hospitaltart: 11-21-2021 End: 57-14-2308Hazlesrmsz hospital visit by Sean Casas Work Phone: stVZ LaboratoryStart: 11-14-2021 End: 42-51-6610Gvooemm encounter procedureSChildren's Hospital of [facility] Start: 93-20-5950ntckmzuqxvGU WILTON FAZIOFacility:H1 Start: 10-25-2021 End: 32-24-6693ixrakspunpHH WILTON FAZIOFacility:M4Cvmvr: 13-24-6594YfirnmOkpgo Nickelson RNHematology/OncologyComment on above:Refill RequestStart: 09-23-2021 End: 64-61-9231tjxvxfbrubLD WILTON FAZIOFacility:N7Gnzxh: 64-47-2400Marutweaz encounterMeme Easton RNHematology/OncologyComment on above:Medication QuestionStart: 39-36-7418Gvkcrzlxe encounterMeme Easton lathe turner/OncologyComment on above:Patient QuestionStart: 09-01-2021 End: 00-70-1525rsrwaajbpvNT WILTON FAZIOFacility:Y8Gonbp: 08-31-2021 End: 56-97-3961Gzoyudz encounter Coreen CASAS [facility] Start: 08-29-2021 End: 26-09-8530ohincfrwjnOC WILTON FAZIOFacility:K0Kwwdn: 08-26-2021 End: 43-46-9308srmnfsxncfYX WILTON FAZIOFacility:V7Ayjhh: 08-24-2021 End: 02-57-4194mxtenfvobcIA WILTON FAZIOFacility:I6Nmrek: 11-66-6755Btrrlfcol encounterMeme Easton RNHematology/OncologyComment on above:Patient Question Start: 08-19-2021 End: 45-11-3442Yacflak encounter procedurePERNELL LONGORIA [facility] Start: 08-19-2021 End: 85-05-4590Qmv Drop offPERNELL LONGORIA [facility] Start: 08-19-2021 End: 16-99-2730Jofujkw encounter procedurePERNELL LONGORIA [phone]-NluppSumma Health [facility] [place] Start: 67-52-6526Otgmggqyq encounterKristofer Calix MD Work Phone: Cancer Appts MCComment on above:Future Appointment Start: 08-01-2021 End: 24-78-1202Dpyctbe evaluation of patient and reportMa Nurse Delgado Golden Work Phone: Hematology/OncologyComment on above:Infective urethritis (Primary Dx)Start: 85-98-8727Pgdglah encounter procedureHaseeb MorelFacility:[facility] BStart: 63-54-8429Tnjfgcb encounter procedure ERIKA LONDONFacility:9459Start: 05-25-2017 End: 78-05-6321QvfrogiqhaBPAPB R [facility] Procedures DateProcedureProcedure DetailPerforming ClinicianStart: 70-99-7576VP OB BPP W NON-STRESSCorey Montez DO Work Phone: Start: 70-11-5919EY OB BPP W NON-STRESSCorey Montez DO Work Phone: Start: 93-21-5400Bwlqx dip stick/tablet rgnt non-auto w/o micrscpCorey Montez DO Work Phone: Start: 25-17-1975MY OB BPP W NON-STRESSCorey Montez DO Work Phone: Start: 74-19-7893KX OB GROWTHCorey Montez DO Work Phone: Start: 17-01-5682NSY CBC WITH AUTO DIFFCorey Montez DO Work Phone: [phone]: 55-23-9507Grskk dip stick/tablet rgnt non-auto w/o micrscpCorey Montez DO Work Phone: Start: 99-30-9503Hzsgf dip stick/tablet rgnt non-auto w/o micrscpCorey Montez DO Work Phone: Start: 36-98-0100Zyjvq dip stick/tablet rgnt non-auto w/o micrscpCorey Montez DO Work Phone: Start: 77-96-2903UU OB CERVICAL LENGTHCorey Montez DO Work Phone: Start: 34-52-2489MZC UA (CLEAN/CATCH) MASTER ESTHETICIAN/MICRO IF IND.Wilton Montez DO Work Phone: Start: 72-14-2910XCJ THYROID STIM HORMONECorey Montez DO Work Phone: Start: 80-07-8760Iuhdo dip stick/tablet rgnt non-auto w/o micrscpCorey Omntez DO Work Phone: Start: 38-93-6369Qsppa dip stick/tablet rgnt non-auto w/o micrscpCorey Montez DO Work Phone: Start: 45-50-4900Xfzilcn quantitative blood xcpt reagent stripCharles Cortes MD Work Phone: Start: 67-23-0004Xjgsq dip stick/tablet rgnt non-auto w/o micrscpCorey Montez DO Work Phone: Start: 12-83-2586Ksyoe of thyroid stimulating hormone tshNot In System Ref ProvStart: 52-04-7569Vdknkjjr screenMukul Noyola MD Work Phone: Start: 19-16-7884Upzt scrn 1+ class nonchromoNot In System Ref ProvStart: 26-54-9339Cwwmyefera glycosylated l8bTipxizwa Provider ExternalStart: 96-75-0847CUS 1&2 AB/AG SCREEN (P24 AG)Not In System Ref Prov Start: 37-00-6098Atop ia hepatitis b surface antigenNot In System Ref ProvStart: 62-24-6963KYSM AND SCREENNot In System Ref ProvStart: 96-29-9296HUX CBC WITH AUTO DIFFCorey Montez DO Work Phone: Start: 58-21-5332Mmjkl dip stick/tablet rgnt non-auto w/o micrscpCorey Montez DO Work Phone: Start: 22-61-9463PT OB TRANSVAGINALCorey Montez DO Work Phone: Start: 14-26-8745Itryf test visual color cmprsn methsCorey Montez DO Work Phone: Start: 95-68-3860QDPKAHUZJ VAGINITIS (HTRX)Wilton Montez DO Work Phone: Start: 61-31-6247Ejarr dip stick/tablet rgnt non-auto w/o micrscpCorey Montez DO Work Phone: Start: 73-99-9962QY PELVISCorey Montez DO Work Phone: Start: 46-56-8143Uw uterus limited 1/> fetusesCorey Montez DO Work Phone: Start: 23-57-7804LVA CBC WITH AUTO DIFFCorey Montez DO Work Phone: Start: 24-07-5577UFA IMMUNOGLOBULIN GCorey Montez DO Work Phone: Start: 62-84-4631ZNQ IMMUNOGLOBULIN MCorey Montez DO Work Phone: Start: 82-24-9729QRE MISCELLANEOUS TESTCorey Montez DO Work Phone: Start: 83-61-2470KRC APTTCorey Montez DO Work Phone: Start: 59-31-1138QEDXJJ V LEIDEN MUTATIONCorey Montez DO Work Phone: Start: 81-64-8983SUAYO HOMOCYSTEINECorey Montez DO Work Phone: Start: 27-76-2251CHTL FIBRINOGENCorey Montez DO Work Phone: Start: 09-50-1386NZIMVUP C-FUNCTIONALCorey Montez DO Work Phone: Start: 80-57-6382NTECTVR S-ANTIGENCorey Montez DO Work Phone: Start: 77-43-8626ALPGYN PROTHROMBIN TIME INR W/O COUM Wilton Montez DO Work Phone: Start: 73-81-9996CYV ANTITHROMBIN ACTIVITYCorey Montez DO Work Phone: Start: 55-31-4251Hrrtg dip stick/tablet rgnt non-auto w/o micrscpCorey Montez DO Work Phone: Start: 01-11-3425DQU TESTCorey Montez DO Work Phone: Start: 71-68-7961YBR DRUG SCREEN RAPID (URINE)Wilton Montez DO Work Phone: Start: 21-67-4739RM OB TRANSVAGINALCorey Montez DO Work Phone: Start: 04-04-2024 End: 73-15-5526Oqerf dip stick/tablet rgnt non-auto w/o micrscpCorey Montez DO Work Phone: Start: 33-02-9498Yowilnf refused by patient Immunization not carried out because of patient decisionNoms NurseStart: 41-08-1441Aftgcwra of Products of Conception, External ApproachDR WILTON HERRMANN Start: 25-10-5786Tted bld gluc mntr dev cleared fda spec home useCcf Provider Start: 66-45-6564Odxopdjdsei observation [Identifier] in Cervix by Cyto stain Wilton Herrmann DO Work Phone: Start: 11-21-2021 End: 10-73-8543Zeeyp-fetoprotein serumScanning Provider ExternalStart: 11-21-2021 End: 49-53-5420LZYSQKH STUDY NON-PROMEDICAScanning Provider ExternalStart: 16-58-0263IIQNJZQDMSRJB TESTINGSraburie Mullins MD Work Phone: Start: 11-18-2288Nruni depression screening assessment Nevin Golden Work Phone: Start: 22-79-3950FZG CULTUREDHRUV PATELStart: 65-70-8045WCIVTVQPW PATELStart: 62-80-8824BDN CELL COUNT WITH DIFFERENTIALDHRUV PATELStart: 37-10-7612TUDOXYJ SIMPSON VIRUS PCRDHRUV PATELStart: 57-33-0065SKDNTHT, CSFDHRUV PATELStart: 72-81-1926XXHQWS BASIC PROTEIN, CSFDHRUV PATELStart: 97-02-0350LTHELQIBSBW BANDINGDHRUV PATELStart: 41-81-9401ZXWZJZJ, CSFDHRUV MONGE Start: 21-51-3221LIGVDRR-INRDHRUV PATELStart: 46-91-9282Jlcjap puncture lumbar diagnosticDHRUV PATELStart: 72-82-5601QYOISNXLRRGODBFT ANTIBODY PANELDHRUV MONGE Start: 73-09-6584FXURRHQAQPD AB IGG, IGM, IGADHRUV PATELStart: 50-98-1730LEVHDES PATELStart: 27-52-8560ILRBGRQCUUNU, SERUMDHRUV PATELStart: 61-36-5225PUQB ARUP 1DHRUV PATELStart: 18-46-9159GHAEEDKRSLY PATELStart: 38-85-8406FCFUHXYUNLPQ PATELStart: 82-03-5440Eksxhy of breastDERIK SIDELL Start: 57-19-9336Rhybuyqflj of wisdom toothDERIK SIDELL endoscopy for ovarian cysts to drainDERIK SIDELL Vaccine refused by patientCOVID-19 vaccine dose declined( Confirmed )PERNELL SIDELL Plan of Treatment DateCare ActivityDetailAuthorStart: 72-17-4401ZME Vaccine (1 - 1-dose 75+ series)RSV Vaccine (1 - 1-dose 75+ series)[facility]: 02-22-1203Tcxeo BMI ScreeningAdult BMI ScreeningMercy Health [facility] SystemStart: 58-42-9783Amsjbww ScreeningTobacco ScreeningMercy Health [facility] SystemStart: 68-32-5033Xepaxno ScreeningTobacco ScreeningMercy Health [facility] SystemStart: 01-05-2026 End: 68-79-6346WV MFM with or without consultUS MFM with or without consult Imaging Routine Multigravida of advanced maternal age in second trimester Antiphospholipid syndrome complicating , antepartum Gestational diabetes mellitus (GDM) in second trimester controlled on oral hypoglycemic drug AMA (advanced maternal age) hmnlsrzovadf34+, second trimester Hypothyroidism, unspecified type History of stroke History of loss in prior , currently in second trimester Hypothyroidism affecting in second trimester Family history of autism Hyponatremia Expected: 01/05/2026 (Approximate), Expires: 01/05/2026[facility] Work Phone: comment on above:Expected: 01/05/2026 (Approximate), Expires: 01/05/2026Start: 02-71-1523Atwrx BMI ScreeningAdult BMI Screening [facility] SystemStart: 26-17-2582Fnxsloq ScreeningTobacco Screening [facility] SystemStart: 82-78-9209Mkhul BMI ScreeningAdult BMI Screening [facility] SystemStart: 04-07-2025 End: 76-59-0678Ptbdkjvkydmf consultation with mmhlrec5104/07/2025 1:30 PM EST Telemedicine Maternal- Medicine at [facility] [address] [place] [phone] Roxana Mays PA-C [address] [place] [address] [facility] HospitalStart: 03-17-2025 End: 23-67-1098Cgvfymseunwu consultation with mxlbwqh6403/17/2025 8:30 AM EST Telemedicine [facility] Rheumatology, A Department of [address] [address] Sam Callahan MD [address] [address] [facility], A Department of [facility] HospitalStart: 03-10-2025 End: 95-54-8981Hfuzmor encounter fxagbdzou51/11/2025 9:50 AM EST Routine NOMJaylan COLVIN [address] [place], [id number] Wilton Herrmann DO [address] [place] [address] NOMS Piyush OBGYNStart: 03-10-2025 End: 96-34-6037Ulqkdkiustob consultation with twxkszx7803/10/2025 8:00 AM EST Telemedicine Maternal- Medicine at [facility] [address] [place] [phone] Sana Palma MD [address] [place] [address] [facility]: 84-75-6168GNG ( or age 60+ yrs) (1 - Risk 1-dose series)RSV ( or age 60+ yrs) (1 - Risk 1- dose series)[facility] SystemStart: 03-02-2025 End: 11-39-6019Ipykfo-up /03/2025 11:30 AM EST Visit (SP) Office Hematology/Oncology [address] [address] Katherine Negrete APRN.CLINICAL LAW PROFESSOR [address] [address] 2 month follow upHematology/OncologyComment on above:2 month follow upStart: 03-02-2025 End: 54-47-1453Fljaglw encounter fcavwnzvn37/03/2025 11:15 AM EST Office Visit [facility] [address] [address] labNortTrinity Health Livonia LaboratoryComment on above:labStart: 02-23-2025 End: 98-95-1987Uxfojao encounter /27/2025 9:00 AM EDT Routine NOMJaylan ROBBGYN [address] [place], [id number] Wilton Herrmann DO [address] [place] [place] [address] SHILOH [place] OBGYNStart: 02-18-2025 End: 57-67-5242LFJ W Auto Differential panel - BloodCOMPLETE BLOOD COUNT AND DIFFERENTIAL Lab Routine 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) Vitamin D deficiency Primary hypercoagulable state (HCC) Expected: 02/18/2025, Expires: 05/20/2025leveland ClinicComment on above:Expected: 02/18/2025, Expires: 05/20/2025Start: 02-18-2025 End: 77-24-6323Vzbupcxejewsr metabolic 2000 panel - Serum or PlasmaCOMPREHENSIVE METABOLIC PANEL Lab Routine Antiphospholipid antibody positive Iron deficiency anemiasecondary to blood loss (chronic) Vitamin D deficiency Primary hypercoagulable state (HCC) Expected: 02/18/2025, Expires: 05/20/2025leveland ClinicComment on above:Expected: 02/18/2025, Expires: 05/20/2025Start: 02-16-2025 End: 42-48-4162Dahsgsj encounter procedureProMedica Rheumatology, A Department of [facility]tart: 75-10-0914Cptbosmcc for malignant neoplasm of cervixNOMS HealthcareStart: 02-09-2025 End: 55-88-3532LR biophysical profile w non stress testUS biophysical profile w non stress test Imaging Routine Third trimester (HHS-HCC) 28 weeks gestation of (HHS-HCC) Anemia complicating childbirth (HHS-HCC) Anticoagulant long-term use Antiphospholipid antibody positive Blood pressure elevated without history of HTN Coagulation defect, unspecified (HHS-HCC) Expected: 02/09/2025 (Approximate), Expires: 08/10/2025 NOMS HealthcareComment on above:Expected: 02/09/2025 (Approximate), Expires: 08/10/2025Start: 02-09-2025 End: 08-41-2453YQ for pregnancyUS OB follow up transabdominal approach Imaging Routine Third trimester (HHS-HCC) 28 weeks gestation of (HHS-HCC) Anemia complicating childbirth (HHS-HCC) Anticoagulant long-term use Antiphospholipid antibody positive Blood pressure elevated without history of HTN Coagulation defect, unspecified (HHS-HCC) Expected: 02/09/2025, Expires: 06/12/2025NOMS HealthcareComment on above:Expected: 02/09/2025, Expires: 06/12/2025Start: 02-09-2025 End: 45-24-9792Bsasnbr encounter gliviyrtd47/13/2025 10:30 AM EDT Routine SHILOH COLVIN [address] [facility] [place] [phone] Wilton Herrmann DO [address] [place] [address] SHILOH HAMILTONtart: 02-06-2025 End: 62-58-7901Lhvbvrbgjkei consultation with qqykzez9102/06/2025 2:00 PM EDT Telemedicine Maternal- Medicine at [facility] [address] [place] [address] Mukul Noyola MD [address] [facility] [place] [address] [facility]: 02-05-2025 End: 54-67-2831Vjaekbk encounter dywktkxkr43/09/2025 1:00 PM EDT Appointment [facility] [place] [address] [facility] [address] [place] [address] Maternal Medicine [place]aStart: 02-01-2025 End: 85-49-0007Vzpl complete W/O contrastEcho complete W/O contrast Echocardiography Routine 22 weeks gestation of Antiphospholipid syndrome complicating , antepartum Multigravida of advanced maternal age in second trimester Expected: 02/01/2025 (Approximate), Expires: 01/01/2026 [facility] Work Phone: comment on above:Expected: 02/01/2025 (Approximate), Expires: 01/01/2026Start: 01-19-2025 End: 39-35-7992Bewikmk encounter osfugutov05/22/2025 9:00 AM EDT Routine NOMJaylan COLVIN [address] [place], [id number] Wilton Herrmann DO [address] [place] [place] [address] SHILOH HAMILTONtart: 01-13-2025 End: 51-45-9342Nvcuqtsssnky consultation with rslnggf6301/13/2025 10:00 AM EDT Telemedicine Maternal- Medicine at [facility] [address] [facility] [place] [address] Roxana Mays, PAPilyC [address] [place] [address], [id number] [facility]: 01-05-2025 End: 91-88-6996Tqwjhgc encounter hqaxbtsaw47/08/2025 2:40 PM EDT Routine NOMS Piyush OBGYN [address] [place], [id number] Wilton Herrmann DO [address] [address] NOMS Piyush OBGYNStart: 01-05-2025 End: lead ECGECG 12 lead unit performed ECG Routine Thyroid disease Gestational diabetes mellitus (GDM), antepartum, gestational diabetes method of control unspecified (HHS-HCC) Multigravida of advanced maternal age in second trimester (HHS-HCC) Lightheaded Dizziness Expected: 01/05/2025 (Approximate), Expires:01/05/2026NOMS HealthcareComment on above:Expected: 01/05/2025 (Approximate), Expires: 01/05/2026Start: 01-05-2025 End: 10-18-6050Mnwzshruartirr 2D completeEchocardiogram 2D complete Echocardiography Routine Thyroid disease Gestational diabetes mellitus (GDM), antepartum, gestational diabetes method of control unspecified (HHS-HCC) Multigravida of advanced maternal age in second trimester (HHS-HCC) Lightheaded Dizziness Expected: 01/05/2025 (Approximate), Expires: 01/05/2027[facility] Work Phone: comment on above:Expected: 01/05/2025 (Approximate), Expires: 01/05/2027Start: 01-01-2025 End: 02-54-5252Tnpcluikgech consultation with gjiupxb7701/01/2025 2:30 PM EDT Telemedicine [facility] [place] [address] [facility] [address] [place] [address] Mukul Noyola MD [address] [facility] [place] [address] [facility] Medicine [place]aStart: 01-01-2025 End: 35-64-6769JY MFM with or without consultUS MFM with [...] on above:Expected: 01/01/2025, Expires: 01/01/2026Start: 01-01-2025 End: 19-00-1901Scpntnp encounter hrsjwyaox71/04/2025 1:00 PM EDT Appointment [facility] [place] [address] [address] Maternal Medicine [place]aStart: 12-29-2024 COVID-19 Vaccine ( season)COVID-19 Vaccine ( season)[facility] ChildrenStart: 26-14-1074Uoddaizne vaccinationMercy Health West Hospitaltart: 12-24-2024 End: 61-02-2057ZPV W Auto Differential panel - BloodCOMPLETE BLOOD COUNT AND DIFFERENTIAL Lab Routine Primary hypercoagulable state (HCC) CVA, old, spee ch/language deficit Cerebral hyponatremia Personal history of TIA (transient ischemic attack) Expected: 12/24/2024, Expires: 03/25/2025[facility] Work Phone: Comment on above:Expected: 12/24/2024, Expires: 03/25/2025Start: 12-24-2024 End: 94-45-7984Vtrvayonj (Vitamin B12) [Mass/volume] in Serum or PlasmaVITAMIN B12 Lab Routine Primary hypercoagulable state (HCC) CVA, old, speech/language deficit Cerebral hyponatremia Personal history of TIA (transient ischemic attack) Expected: 12/24/2024, Expires: 03/25/2025[facility] ClinicComment on above:Expected: 12/24/2024, Expires: 03/25/2025Start: 12-24-2024 End: 58-46-2859Bvbishzjikhvf metabolic 2000 panel - Serum or PlasmaCOMPREHENSIVE METABOLIC PANEL Lab Routine Primary hypercoagulable state (HCC) CVA, old, speech/language deficit Cerebral hyponatremia Personal history of TIA (transient ischemic attack) Expected: 12/24/2024, Expires: 03/25/2025[facility] Comment on above:Expected: 12/24/2024, Expires: 03/25/2025Start: 12-24-2024 End: 85-38-3077Rtqdagdt [Mass/volume] in Serum or PlasmaFERRITIN Lab Routine Primary hypercoagulable state (HCC) CVA, old, speech/language deficit Cerebral hyponatremia Personal history of TIA (transient ischemic attack) Expected: 12/24/2024, [facility]Expected: 12/24/2024, Expires: 03/25/2025Start: 12-24-2024 End: [id number] and Iron binding capacity panel - Serum or PlasmaIRON AND TIBC Lab Routine Primary hypercoagulable state (HCC) CVA, old, speech/language deficit Cerebral hyponatremia Personal history of TIA (transient ischemic attack) Expected: 12/24/2024, [facility]Expected: 12/24/2024, Expires: 03/25/2025Start: 12-23-2024 End: [id number] D3 [Mass/volume] in Serum or PlasmaVITAMIN D 25 HYDROXY Lab Routine 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) Vitamin D deficiency Expected: 12/23/2024, [facility] Work Phone: Comment on above:Expected: 12/23/2024, Expires: 03/24/2025Start: 12-22-2024 End: 72-70-9073Olexuw-up qibzsuhtj87/25/2025 1:30 PM EDT Visit (SP) Office Hematology/Oncology [address] [place], [place] [phone] Katherine Negrete CRISIS MANAGER.CLINICAL LAW PROFESSOR [address] [address] 8 week follow up labHematology/OncologyComment on above:8 week follow up labStart: 12-22-2024 End: 63-51-7624Xevavgc encounter ztzbfqrib60/25/2025 1:15 PM EDT Office Visit [facility] [address] [place], [place] [address] [address] 8 week follow up labNortTrinity Health Livonia LaboratoryComment on above:8 week follow up labStart: 12-17-2024 End: 36-18-6366Zswyqneurqzg consultation with qckrwyj0512/17/2024 1:30 PM EDT Telemedicine Maternal- Medicine at [facility] [address] [place] [address] Alisa Saba, CRISIS MANAGER-CLINICAL LAW PROFESSOR [address] [place] [address] [facility] 12-11-2024 End: 89-09-5483Uwgffqg encounter tjcshjsiw86/14/2025 9:10 AM EDT Routine [facility] Piyush COLVIN [address] [place], [phone] Wilton Herrmann DO [address] [place] [address] [facility] Piyush ROBBGYNStart: 12-03-2024 End: 41-89-9732Tjvgpxdaewsd consultation with ykkmeqc7612/03/2024 2:00 PM EDT Telemedicine Maternal- Medicine at [facility] [address] [place] [phone] Alisa Saba, VICTOR HUGO-CLINICAL LAW PROFESSOR [address] [place] [address] [facility] 11-20-2024 End: 47-18-9812Nposv fetoprotein, maternalAlpha fetoprotein, maternal Lab Routine Second trimester ([facility]) Expected: 11/20/2024 (Approximate), Expires: 01/21/2025N[facility]S HealthcareComment on above:Expected: 11/20/2024 (Approximate), Expires: 01/21/2025Start: 11-20-2024 End: 18-54-7895Baszwpo encounter cxhkuigkw76/24/2025 10:10 AM EDT Routine [facility]CP OB [address] [facility] [place] [address] Wilton Herrmann, DO [address] [facility] [place] [address] NOM[facility] BCP OBStart: 11-19-2024 End: 81-52-2277wemlrusffz19/23/2025 9:30 AM EDT Support Visit Maternal- Medicine at [facility] [address] [place] [phone] Lorena Enciso, RN [address] [facility], [address] [place] [address], [place] [address] Stephanie Quiros LD Fischer, Kelli, JERONIMO [address] [facility] CITY[facility] TRISH, [address] [facility] [address] [facility] 11-12-2024 End: 69-81-3172VT MFM with or without consultUS MFM with or without consult Imaging Routine Gestational diabetes mellitus (GDM), antepartum, gestational diabetes method of control unspecified Expected: 11/12/2024 (Approximate), Expires: 10/13/2025[facility] Work Phone: comment on above:Expected: 11/12/2024 (Approximate), Expires: 10/13/2025Start: 10-30-2024 End: 46-15-8064Hfmusza encounter /03/2025 10:40 AM EDT Routine [facility] BCP OB [address] [facility] [place] [phone] Wilton Herrmann, DO [address] [place] [address] NOMS BCP OBStart: 10-30-2024 End: 45-33-2376Hfrdusf encounter yuczlpvaa86/03/2025 9:30 AM EDT Routine [facility] BCP OB [address] [place] [phone] Wilton Herrmann, DO [address] [place] [address] ArrivedNOMS BCP OBComment on above: ArrivedStart: 10-28-2024 End: 33-14-2440Mqlvun-up obvjsjhyj79/01/2025 2:30 PM EDT Visit (SP) Office Hematology/Oncology [address] [place], [place] [phone] Katherine Negrete, CRISIS MANAGER.CLINICAL LAW PROFESSOR [address] [place] [address] 3 month follow upHematology/OncologyComment on above:3 month follow upStart: 10-28-2024 End: 02-63-2157Mpraxtz encounter pegvfcukh74/01/2025 2:15 PM EDT Office Visit [facility] [address] [place] [address] labs - patient prefers to come same dayNortCoatesville [facility] LaboratoryComment on above:labs - patient prefers to come same day Start: 10-27-2024 End: 94-91-8644Ejyuwjl encounter zrphiyixy81/30/2025 9:20 AM EDT Office Visit [facility] OB [address] [facility] [place] [phone] Wilton Herrmann, DO [address] [facility] [place] [address] [facility] OBStart: 10-20-2024 End: 18-05-5717Dfbobhxdpclq / ancillary services cpldlhdbic75/23/2025 1:00 PM EDT Ancillary Procedure [facility] OB [address] [facility] [place] [address] NOMS BCP OBStart: 10-10-2024 End: 82-34-4661Sufcml-up gfihywamm01/13/2025 10:40 AM EDT Visit (SP) Office Hematology/Oncology [address] [address] Kristofer Calix MD [address] [address] 3 month follow upHematology/OncologyComment on above:3 month follow upStart: 10-10-2024 End: 94-43-3511Oydlftk encounter tcomvvzcs77/13/2025 10:15 AM EDT Office Visit [facility] [address] [address] labs - patient prefers to come same dayBeauregard [facility] Hospital LaboratoryComment on above:labs - patient prefers to come same day Start: 10-02-2024 End: 64-97-6303EYE/RhABO/Rh Lab Routine Missed menses , unspecified gestational age Expected: 10/02/2024 (Approximate), Expires: 10/02/2025NOMS HealthcareComment on above:Expected: 10/02/2024 (Approximate), Expires: 10/02/2025Start: 10-02-2024 End: 52-31-8375Nyuqy type and Indirect antibody screen panel - BloodType and screen Lab Routine Missed menses , unspecified gestational age Expected: 10/02/2024 (Approximate), Expires: 10/02/2025[facility] Work Phone: comment on above:Expected: 10/02/2024 (Approximate), Expires: 10/02/2025Start: 10-02-2024 End: 50-74-3179Lgpfk of abuse panel - Urine by Screen methodRapid drug screen, urine Lab Routine , unspecified gestational age Encounter for supervision of normal first in first trimester Expected: 10/02/2024 (Approximate), Expires: 10/02/2025N[facility] HealthcareComment on above:Expected: 10/02/2024 (Approximate), Expires: 10/02/2025Start: 10-02-2024 End: 77-73-5278vrkffnfsgj67/05/2025 1:00 PM EDT Initial [facility] OB [facility] [place] [address] WVGX BCP OBStart: 10-02-2024 End: 68-97-7419Ggdvuyglhieb / ancillary services oygoernzre90/05/2025 12:30 PM EDT Ancillary Procedure [facility] OB [facility] [address] [place], [place] [phone] RXHQ BCP OBStart: 08-27-2024 End: 53-81-7438Nvogjv-up ftskrjrab21/30/2025 2:00 PM EDT Visit (SP) Office Hematology/Oncology [address] [place] [address] [address] [place], [place] [phone] Kristofer Calix MD [address] [place] [address] 3 month follow upHematology/OncologyComment on above:3 month follow upStart: 08-27-2024 End: 28-45-8424Qbcqtcy encounter ypnyokxft63/30/2025 1:45 PM EDT Office Visit [facility] [address] [place] [address] labs - patient prefers to come same dayBeauregard Memorial Hospital LaboratoryComment on above:labs - patient prefers to come same day Start: 08-26-2024 End: 295722-pobtbmxluzvgjc D3 [Mass/volume] in Serum or PlasmaVITAMIN D 25 HYDROXY Lab Routine 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 Vitamin D deficiency Expected: 08/26/2024, Expires: 11/25/2024[facility] ClinicComment on above: Expected: 08/26/2024, Expires: 11/25/2024Start: 08-26-2024 End: 29-84-6986BRM W Auto Differential panel - BloodCOMPLETE BLOOD COUNT AND DIFFERENTIAL Lab Routine 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 Vitamin D deficiency Expected: 08/26/2024, Expires: 11/25/2024[facility] Work Phone: Comment on above:Expected: 08/26/2024, Expires: 11/25/2024Start: 08-26-2024 End: 81-55-4585Dqcmvvmie (Vitamin B12) [Mass/volume] in Serum or PlasmaVITAMIN B12 Lab Routine 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 Vitamin D deficiency Expected: 08/26/2024, Expires: 11/25/2024[facility] ClinicComment on above: Expected: 08/26/2024, Expires: 11/25/2024Start: 08-26-2024 End: 43-51-5215Geildzzzwoxzu metabolic 2000 panel - Serum or PlasmaCOMPREHENSIVE METABOLIC PANEL Lab Routine Antiphospholipid antibody positive Iron deficiency anemiasecondary to blood loss (chronic) Malaise and fatigue Vitamin D deficiency Expected: 08/26/2024, Expires: 11/25/2024[facility] ClinicComment on above: Expected: 08/26/2024, Expires: 11/25/2024Start: 08-26-2024 End: 53-25-1263Gkfzcbmr [Mass/volume] in Serum or PlasmaFERRITIN Lab Routine 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) Malaise and fatigue Vitamin D deficiency Expected: 08/26/2024, Expires: 11/25/2024[facility] ClinicComment on above:Expected: 08/26/2024, Expires: 11/25/2024Start: 08-26-2024 End: 09-85-8207Mllt and Iron binding capacity panel - Serum or PlasmaIRON AND TIBC Lab Routine 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 Vitamin D deficiency Expected: 08/26/2024, Expires: 11/25/2024[facility] ClinicComment on above: Expected: 08/26/2024, Expires: 11/25/2024Start: 08-26-2024 End: 43-15-9051Fxwxvudvzsi [Units/volume] in Serum or PlasmaTHYROID STIMULATING HORMONE Lab Routine Antiphospholipid antibody positive 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) Malaise and fatigue Vitamin D deficiency Expected: 08/26/2024, Expires: 11/25/2024[facility] ClinicComment on above: Expected: 08/26/2024, Expires: 11/25/2024Start: 07-24-2024 End: 01-27-6765FunyhfgkdvqdMtwgcmmoibsp Lab Routine Irregular menstrual cycle Expected: 07/24/2024 (Approximate), Expires: 07/24/2025[facility] Work Phone: comment on above:Expected: 07/24/2024 (Approximate), Expires: 07/24/2025Start: 69-39-8416CMyF,Tdap and Td Vaccines (2 - Td or Tdap) DTaP,Tdap and Td Vaccines (2 - Td or Tdap)[facility] CenterNextinit SystemStart: 31-60-1247WMzV/Tdap/Td vaccine (2 - Td or Tdap)DTaP/Tdap/Td vaccine (2 - Td or Tdap)[facility]ITALStart: 23-21-8248Tzhvo microalbumin profile [facility]: 06-23-2024 End: 80-74-1711WW PelvisUS Pelvis w/ TV Imaging Routine Vaginal bleeding Vaginal discharge Pelvic pain in female Expected: 06/23/2024, Expires: 06/23/2025NOMS HealthcareComment on above:Expected: 06/23/2024, Expires: 06/23/2025Start: 06-02-2024 End: 27-93-3889Ssdxktt encounter ciezchjaj98/03/2025 11:20 AM EST Office Visit [facility] BCP OB [address] [facility] [place] [phone] Wilton Herrmann, [address] [place] [address] NOMS BCP OBStart: 05-21-2024 End: 42-03-9820Nxlhkf-up zyvqngagx16/22/2025 2:20 PM EST Visit (SP) Office Hematology/Oncology [address] [place], [place] [phone] Kristofer Calix MD [address] [address] 3 month follow up with labHematology/OncologyComment on above:3 month follow up with labStart: 05-21-2024 End: 89-01-5407Hxknimm encounter jaxrhmzeg46/22/2025 2:00 PM EST Office Visit [facility] [address] [place] [address] 3 month follow up with labNortTrinity Health [facility]onia LaboratoryComment on above:3 month follow up with labStart: 05-06-2024 End: 30-41-4424EY for pregnancyNOMS Healthcare Work Phone: comment on above:Expected: 05/06/2024, Expires: 05/06/2025Start: 05-06-2024 End: 73-48-3078Nzmzadc encounter qsfsdozaq29/07/2025 1:50 PM EST Routine [facility] BCP OB [address] [facility] [place] [phone] Wilton Herrmann [address] [place] [address] NOMS BCP OBStart: 04-09-2024 End: 70-60-8077Wqxgrd-up encounterHematology/OncologyComment on above:3 month follow up with labStart: 04-09-2024 End: 02-71-6133Tocpodn encounter procedureBeauregard Memorial Hospital LaboratoryComment on above:3 month follow up with labStart: 04-04-2024 End: 58-07-4229XKP/RhABO/Rh Lab Routine Missed menses , unspecified gestational age Expected: 04/04/2024 (Approximate), Expires: 04/04/2025NO[facility] HealthcareComment on above:Expected: 04/04/2024 (Approximate), Expires: 04/04/2025Start: 04-04-2024 End: 15-99-4406Azusw type and Indirect antibody screen panel - BloodType and screen Lab Routine Missed menses , unspecified gestational age Expected: 04/04/2024 (Approximate), Expires: 04/04/2025[facility] Work Phone: comment on above:Expected: 04/04/2024 (Approximate), Expires: 04/04/2025Start: 04-04-2024 End: 06-43-0392Lguun of abuse panel - Urine by Screen methodRapid drug screen, urine Lab Routine , unspecified gestational age Encounter for supervision of normal first in first trimester Expected: 04/04/2024 (Approximate), Expires: 04/04/2025[facility] HealthcareComment on above:Expected: 04/04/2024 (Approximate), Expires: 04/04/2025Start: 04-04-2024 End: 85-50-7954WP Pelvis transvaginalUS OB transvaginal Imaging Routine Missed menses Expected: 04/04/2024 (Approximate), Expires: 04/04/2025[facility] Healthcare Comment on above:Expected: 04/04/2024 (Approximate), Expires: 04/04/2025Start: 04-02-2024 End: 473693-vvibcynfdzhrgb D3 [Mass/volume] in Serum or PlasmaVITAMIN D 25 HYDROXY Lab Routine Iron deficiency anemia secondary to blood loss (chronic) Vitamin Ddeficiency Malaise and fatigue Expected: 04/02/2024 (Approximate), Expires: 07/02/2024[facility] ClinicComment on above:Expected: 04/02/2024 (Approximate), Expires: 07/02/2024Start: 04-02-2024 End: 20-05-1697PIR W Auto Differential panel - BloodCOMPLETE BLOOD COUNT AND DIFFERENTIAL Lab Routine Iron deficiency anemia secondary to blood loss (ch ronic) Vitamin D deficiency Malaise and fatigue Expected: 04/02/2024 (Approximate), Expires: 01/01/2025[facility] ClinicComment on above:Expected: 04/02/2024 (Approximate), Expires: 01/01/2025Start: 04-02-2024 End: 46-86-3126Hvzipmxtx (Vitamin B12) [Mass/volume] in Serum or PlasmaVITAMIN B12 Lab Routine Iron deficiency anemia secondary to blood loss (chronic) Vitamin D deficiency Malaise and fatigue Expected: 04/02/2024 (Approximate), Expires: 01/01/2025[facility] ClinicComment on above:Expected: 04/02/2024 (Approximate), Expires: 01/01/2025Start: 04-02-2024 End: 48-69-1495Umxzdlmkozhzx metabolic 2000 panel - Serum or PlasmaCOMPREHENSIVE METABOLIC PANEL Lab Routine Iron deficiency anemia secondary to blood loss (chronic) Vitamin D deficiency Malaise and fatigue Expected: 04/02/2024 (Approximate), Expires: 01/01/2025[facility] ClinicComment on above:Expected: 04/02/2024 (Approximate), Expires: 01/01/2025Start: 04-02-2024 End: 54-39-8147Tcdgbsfb [Mass/volume] in Serum or PlasmaFERRITIN Lab Routine Iron deficiency anemia secondary to blood loss (chronic) Vitamin D deficiency M alaise and fatigue Expected: 04/02/2024 (Approximate), Expires: 01/01/2025 [facility] HospitalComment [facility] above:Expected: 04/02/2024 (Approximate), Expires: 01/01/2025Start: 04-02-2024 End: 06-54-5050Toidjm [Mass/volume] in Serum or PlasmaFOLATE, SERUM Lab Routine Iron deficiency anemia secondary to blood loss (chronic) Vitamin D deficiency Malaise and fatigue Expected: 04/02/2024 (Approximate), Expires: 01/01/2025 [facility] HospitalComment on above:Expected: 04/02/2024 (Approximate), Expires: 01/01/2025Start: 04-02-2024 End: 02-90-2832Ggcr and Iron binding capacity panel - Serum or PlasmaIRON AND TIBC Lab Routine Iron deficiency anemia secondary to blood loss (chronic) Vitamin D deficiency Malaise and fatigue Expected: 04/02/2024 (Approximate), Expires: 01/01/2025[facility] HospitalComment on above:Expected: 04/02/2024 (Approximate), Expires: 01/01/2025Start: 04-02-2024 End: 35-42-1319Xuyjajgjxop [Units/volume] in Serum or PlasmaTHYROID STIMULATING HORMONE Lab Routine Iron deficiency anemia secondary to blood loss (chronic) Vit vogel D deficiency Malaise and fatigue Expected: 04/02/2024 (Approximate), Expires: 07/02/2024[facility] Work Phone: Comment on above:Expected: 04/02/2024 (Approximate), Expires: 07/02/2024Start: 01-05-2024 End: 29-43-7990DWQ W Auto Differential panel - BloodCOMPLETE BLOOD COUNT AND DIFFERENTIAL Lab Routine Iron deficiency anemia secondary to blood loss (ch ronic) Vitamin D deficiency Malaise and fatigue Expected: 01/05/2024 (Approximate), Expires: 01/01/2025[facility] ClinicComment on above:Expected: 01/05/2024 (Approximate), Expires: 01/01/2025Start: 01-05-2024 End: 09-36-9439Ozximmgonxaxs metabolic 2000 panel - Serum or PlasmaCOMPREHENSIVE METABOLIC PANEL Lab Routine Iron deficiency anemia secondary to blood loss (chronic) Vitamin D deficiency Malaise and fatigue Expected: 01/05/2024 (Approximate), Expires: 5[facility] ClinicComment on above:Expected: 01/05/2024 (Approximate), Expires: 01/01/2025Start: 01-02-2024 End: 06-66-2861Olqdxd-up aswpsjjjb20/04/2024 1:45 PM EDT Visit (SP) Office Hematology/Oncology [address] [place], [place] [phone] Kristofer Calix MD [address] [address] 8 WEEK FOLLOW UPHematology/OncologyComment on above:8 WEEK FOLLOW UPStart: 01-02-2024 End: 80-68-5732Asswgcc encounter hxaeeileq22/04/2024 1:30 PM EDT Office Visit [facility] [address] [address] 8 WEEK FOLLOW UPNortTrinity Health [facility]onia LaboratoryComment on above:8 WEEK FOLLOW UPStart: 46-58-5336Mcpgf-19 Vaccine ( season)Covid-19 Vaccine ( season)[facility]: 18-29-4289Gdpya-19 Vaccine ( season)Covid-19 Vaccine ( season)[facility]: 85-00-0876Beqqlhsrp vaccinationThe [facility] Hospital Start: 11-29-2023 End: 55-12-7583eskxiqithl06/01/2024 1:30 PM EDT Infusion Center Hematology/Oncology [address] [address] VENOFER 300Hematology/OncologyComment on above:VENOFER 300Start: 11-22-2023 End: 89-21-0079tzwiljylcy74/25/2024 1:30 PM EDT Infusion Center Hematology/Oncology [address] [address] VENOFER 300Hematology/OncologyComment on above:VENOFER 300Start: 11-15-2023 End: 59-57-2461qklacvaflm51/18/2024 1:30 PM EDT Infusion Center Hematology/Oncology [address] [place] [address] [place] [address] VENOFER 300Hematology/OncologyComment on above:VENOFER 300Start: 09-13-2023 End: 61-40-863071663034-unjybhckblegcc D3 [Mass/volume] in Serum or PlasmaVITAMIN D 25 HYDROXY Lab Routine Vitamin D deficiency 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) Expected: 09/13/2023 (Approximate), Expires: 12/13/2023[facility] Work Phone: Comment on above:Expected: 09/13/2023 (Approximate), Expires: 12/13/2023Start: 09-13-2023 End: 77-11-9607Zeapsth.ionized [Moles/volume] in BloodCALCIUM IONIZED BLOOD Lab Routine Vitamin D deficiency 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) Expected: 09/13/2023 (Approximate), Expires: 12/13/2023 [place] Work Phone: Comment on above:Expected: 09/13/2023 (Approximate), Expires: 12/13/2023Start: 09-13-2023 End: 38-49-3587WOS W Auto Differential panel - BloodCBC + DIFF Lab Routine Vitamin D deficiency 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) Expected: 09/13/2023 (Approximate), Expires: 06/15/2024[facility] Work Phone: Comment on above:Expected: 09/13/2023 (Approximate), Expires: 06/15/2024Start: 09-13-2023 End: 48-86-4968Lmkbjjeoc (Vitamin B12) [Mass/volume] in Serum or PlasmaVITAMIN B12 BLOOD Lab Routine Vitamin D deficiency 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) Expected: 09/13/2023 (Approximate), Expires: 06/15/2024[facility] Work Phone: Comment on above:Expected: 09/13/2023 (Approximate), Expires: 06/15/2024Start: 09-13-2023 End: 20-66-5000Ksmqbnwoeyptw metabolic 2000 panel - Serum or PlasmaCOMP METABOLIC PANEL Lab Routine Vitamin D deficiency 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) Expected: 09/13/2023 (Approximate), Expires: 06/15/2024[facility] Work Phone: Comment on above:Expected: 09/13/2023 (Approximate), Expires: 06/15/2024Start: 09-13-2023 End: 28-35-8288Pxmwfqby [Mass/volume] in Serum or PlasmaFERRITIN BLD Lab Routine Vitamin D deficiency 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) Expected: 09/13/2023 (Approximate), Expires: 06/15/2024[facility] Work Phone: Comment on above:Expected: 09/13/2023 (Approximate), Expires: 06/15/2024Start: 09-13-2023 End: 08-69-4072Lymjyx [Mass/volume] in Serum or PlasmaFOLATE SERUM Lab Routine Vitamin D deficiency 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) Expected: 09/13/2023 (Approximate), Expires: 06/15/2024[facility] Work Phone: Comment on above:Expected: 09/13/2023 (Approximate), Expires: 06/15/2024Start: 09-13-2023 End: 40-69-8698Ovfq and Iron binding capacity panel - Serum or PlasmaIRON + TIBC Lab Routine Vitamin D deficiency 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) Expected: 09/13/2023 (Approximate), Expires: 06/15/2024 [place] Work Phone: Comment on above:Expected: 09/13/2023 (Approximate), Expires: 06/15/2024Start: 09-13-2023 End: 58-40-4588Jdyuiempct.intact [Mass/volume] in Serum or PlasmaPTH INTACT BLD Lab Routine Vitamin D deficiency 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) Expected: 09/13/2023 (Approximate), Expires: 12/13/2023 [place] Work Phone: Comment on above:Expected: 09/13/2023 (Approximate), Expires: 12/13/2023Start: 06-15-2023 End: 004997-oqomotwuyzouey D3 [Mass/volume] in Serum or PlasmaVITAMIN D 25 HYDROXY Lab Routine Vitamin D deficiency Expected: 06/15/2023 (Approximate), Expires: 09/14/2023[facility] Work Phone: Comment on above:Expected: 06/15/2023 (Approximate), Expires: 09/14/2023Start: 06-15-2023 End: 91-38-8750Kyqlqiq.ionized [Moles/volume] in BloodCALCIUM IONIZED BLOOD Lab Routine Vitamin D deficiency Hypercalcemia Expected: 06/15/2023 (Approximate), Expires: 09/14/2023[facility] Work Phone: Comment on above:Expected: 06/15/2023 (Approximate), Expires: 09/14/2023Start: 06-15-2023 End: 87-19-6746YWO W Auto Differential panel - BloodCBC + DIFF Lab Routine Iron deficiency anemia secondary to blood loss (chronic) Expected: 06/15/2023 (Approximate), Expires: 06/12/2024[facility] Work Phone: Comment on above:Expected: 06/15/2023 (Approximate), Expires: 06/12/2024Start: 06-15-2023 End: 27-93-7716Tpnkwgtnw (Vitamin B12) [Mass/volume] in Serum or PlasmaVITAMIN B12 BLOOD Lab Routine Iron deficiency anemia secondary to blood loss (chronic) Expected: 06/15/2023 (Approximate), Expires: 06/12/2024[facility] Work Phone: Comment on above:Expected: 06/15/2023 (Approximate), Expires: 06/12/2024Start: 06-15-2023 End: 65-88-5136Tuyabskzjfiyz metabolic 2000 panel - Serum or PlasmaCOMP METABOLIC PANEL Lab Routine Iron deficiency anemia secondary to blood loss (chronic) Expected:06/15/2023 (Approximate), Expires: 06/12/2024[facility] Work Phone: Comment on above:Expected: 06/15/2023 (Approximate), Expires: 06/12/2024Start: 06-15-2023 End: 40-16-7798Uknanmux [Mass/volume] in Serum or PlasmaFERRITIN BLD Lab Routine Iron deficiency anemia secondary to blood loss (chronic) Expected: 06/15/2023 (Approximate), Expires: 06/12/2024[facility] Work Phone: Comment on above:Expected: 06/15/2023 (Approximate), Expires: 06/12/2024Start: 06-15-2023 End: 54-94-2242Vathmn [Mass/volume] in Serum or PlasmaFOLATE SERUM Lab Routine Iron deficiency anemia secondary to blood loss (chronic) Expected: 06/15/2023 (Approximate), Expires: 06/12/2024[facility] Work Phone: Comment on above:Expected: 06/15/2023 (Approximate), Expires: 06/12/2024Start: 06-15-2023 End: 10-90-8881Evhe and Iron binding capacity panel - Serum or PlasmaIRON + TIBC Lab Routine Iron deficiency anemia secondary to blood loss (chronic) Expected: 06/15/2023 (Approximate), Expires: 06/12/2024[facility] Work Phone: Comment on above:Expected: 06/15/2023 (Approximate), Expires: 06/12/2024Start: 06-15-2023 End: 81-12-7463IFD, INTACT (WITHOUT CALCIUM)PTH, INTACT (WITHOUT CALCIUM) Lab Routine Vitamin D deficiency Hypercalcemia Expected: 06/15/2023 (Approximate), Expires: 09/14/2023[facility] Work Phone: Comment on above:Expected: 06/15/2023 (Approximate), Expires: 09/14/2023Start: 06-15-2023 End: 59-34-6953Qipouojjfnl [Units/volume] in Serum or PlasmaTSH BLD Lab Routine Malaise and fatigue Expected: 06/15/2023 (Approximate), Expires: 09/14/2023 [place] Work Phone: Comment on above:Expected: 06/15/2023 (Approximate), Expires: 09/14/2023Start: 06-14-2023 End: 058292-gvzcweifadfyai D3 [Mass/volume] in Serum or PlasmaVITAMIN D 25 HYDROXY Lab Routine Hypercalcemia Vitamin D deficiency Expected: 06/14/2023 (Approximate), Expires: 09/13/2023[facility] Work Phone: Comment on above:Expected: 06/14/2023 (Approximate), Expires: 09/13/2023Start: 06-14-2023 End: 66-15-5767Cxtvqbw.ionized [Moles/volume] in BloodCALCIUM IONIZED BLOOD Lab Routine Hypercalcemia Vitamin D deficiency Expected: 06/14/2023 (Approximate), Expires: 09/13/2023[facility] Work Phone: Comment on above:Expected: 06/14/2023 (Approximate), Expires: 09/13/2023Start: 06-14-2023 End: 92-71-0285ZAV, INTACT (WITHOUT CALCIUM)PTH, INTACT (WITHOUT CALCIUM) Lab Routine Hypercalcemia Vitamin D deficiency Expected: 06/14/2023 (Approximate), Expires: 09/13/2023[facility] Work Phone: Comment on above:Expected: 06/14/2023 (Approximate), Expires: 09/13/2023Start: 06-14-2023 End: 79-94-4197Hskbnqdynwz [Units/volume] in Serum or PlasmaTSH BLD Lab Routine Hypercalcemia Malaise and fatigue Expected: 06/14/2023 (Approximate), Expires: [address] [place] [address] Work Phone: Comment on above:Expected: 06/14/2023 (Approximate), Expires: 09/13/2023Start: 05-14-2023 End: 87-91-9435JVM W Auto Differential panel - BloodCBC + DIFF Lab Routine Primary hypercoagulable state (HCC) Iron deficiency anemia secondary to blood loss (chronic) Vitamin D deficiency CVA, old, 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) Expected: 05/14/2023 (Approximate), Expires: 03/19/2024[facility] Work Phone: Comment on above:Expected: 05/14/2023 (Approximate), Expires: 03/19/2024Start: 05-14-2023 End: 96-26-4707Wyxujgrvi (Vitamin B12) [Mass/volume] in Serum or PlasmaVITAMIN B12 BLOOD Lab Routine Primary hypercoagulable state (HCC) Iron deficiency anemia secondary to blood loss (chronic) Vitamin D deficiency CVA, old, 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) Expected: 05/14/2023 (Approximate), Expires: 03/19/2024[facility] Work Phone: Comment on above:Expected: 05/14/2023 (Approximate), Expires: 03/19/2024Start: 05-14-2023 End: 23-38-6418Yrxssybozgmkl metabolic 2000 panel - Serum or PlasmaCOMP METABOLIC PANEL Lab Routine Primary hypercoagulable state (HCC) Iron deficiency anemia secondary to blood loss (chronic) Vitamin D deficiency CVA, old, 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) Expected: 05/14/2023 (Approximate), Expires: 03/19/2024[facility] Work Phone: Comment on above:Expected: 05/14/2023 (Approximate), Expires: 03/19/2024Start: 05-14-2023 End: 67-99-1550Yugwmvla [Mass/volume] in Serum or PlasmaFERRITIN BLD Lab Routine Primary hypercoagulable state (HCC) Iron deficiency anemia secondary to blood loss (chronic) Vitamin D deficiency CVA, old, 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) Expected: 05/14/2023 (Approximate), Expires: 03/19/2024[facility] Work Phone: Comment on above:Expected: 05/14/2023 (Approximate), Expires: 03/19/2024Start: 05-14-2023 End: 32-37-1432Qyflwz [Mass/volume] in Serum or PlasmaFOLATE SERUM Lab Routine Primary hypercoagulable state (HCC) Iron deficiency anemia secondary to blood loss (chronic) Vitamin D deficiency CVA, old, 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) Expected: 05/14/2023 (Approximate), Expires: 03/19/2024[facility] Work Phone: Comment on above:Expected: 05/14/2023 (Approximate), Expires: 03/19/2024Start: 05-14-2023 End: 48-64-8535Fzeo and Iron binding capacity panel - Serum or PlasmaIRON + TIBC Lab Routine Primary hypercoagulable state (HCC) Iron deficiency anemia secondary to blood loss (chronic) Vitamin D deficiency CVA, old, 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) Expected: 05/14/2023 (Approximate), Expires: 03/19/2024[facility] Work Phone: Comment on above:Expected: 05/14/2023 (Approximate), Expires: 03/19/2024Start: 52-57-6642Dwxtbitfpk Health ScreeningBehavioral Health ScreeningMercy Health West Hospitaltart: 61-75-5749Bvxrkahbwo AssessmentDepression AssessmentMercy Health West Hospitaltart: 02-16-2023 End: 581433-sbdrzpeifgmzkk D3 [Mass/volume] in Serum or PlasmaVITAMIN D 25 HYDROXY Lab Routine Primary hypercoagulable state (HCC) Iron deficiency anemia secondary to blood loss (chronic) Vitamin D deficiency Expected: 02/16/2023 (Approximate), Expires: 04/18/2023[facility] Work Phone: Comment on above:Expected: 02/16/2023 (Approximate), Expires: 04/18/2023Start: 02-16-2023 End: 15-09-9517TCG W Auto Differential panel - BloodCBC + DIFF Lab Routine Primary hypercoagulable state (HCC) Iron deficiency anemia secondary to blood loss (chronic) Expected: 02/16/2023 (Approximate), Expires: 12/23/2023[facility] Work Phone: Comment on above:Expected: 02/16/2023 (Approximate), Expires: 12/23/2023Start: 02-16-2023 End: 74-00-9091Hlvwqydqq (Vitamin B12) [Mass/volume] in Serum or PlasmaVITAMIN B12 BLOOD Lab Routine Primary hypercoagulable state (HCC) Iron deficiency anemia secondary to blood loss (chronic) Expected: 02/16/2023 (Approximate), Expires: 12/23/2023[facility] Work Phone: Comment on above:Expected: 02/16/2023 (Approximate), Expires: 12/23/2023Start: 02-16-2023 End: 55-87-9565Xjnqrrbjrrwow metabolic 2000 panel - Serum or PlasmaCOMP METABOLIC PANEL Lab Routine Primary hypercoagulable state (HCC) Iron deficiency anemia secondary to blood loss (chronic) Expected: 02/16/2023 (Approximate), Expires: 12/23/2023[facility] Work Phone: Comment on above:Expected: 02/16/2023 (Approximate), Expires: 12/23/2023Start: 02-16-2023 End: 48-40-3238Tjnjhuyc [Mass/volume] in Serum or PlasmaFERRITIN BLD Lab Routine Primary hypercoagulable state (HCC) Iron deficiency anemia secondary to blood loss (chronic) Expected: 02/16/2023 (Approximate), Expires: 12/23/2023[facility] Work Phone: Comment on above:Expected: 02/16/2023 (Approximate), Expires: 12/23/2023Start: 02-16-2023 End: 07-27-7595Zalgox [Mass/volume] in Serum or PlasmaFOLATE SERUM Lab Routine Primary hypercoagulable state (HCC) Iron deficiency anemia secondary to blood loss (chronic) Expected: 02/16/2023 (Approximate), Expires: 12/23/2023[facility] Work Phone: Comment on above:Expected: 02/16/2023 (Approximate), Expires: 12/23/2023Start: 02-16-2023 End: 45-95-7362Clsj and Iron binding capacity panel - Serum or PlasmaIRON + TIBC Lab Routine Primary hypercoagulable state (HCC) Iron deficiency anemia secondary to blood loss (chronic) Expected: 02/16/2023 (Approximate), Expires: 12/23/2023[facility] Work Phone: Comment on above:Expected: 02/16/2023 (Approximate), Expires: 12/23/2023Start: 47-14-7714Tljrp-19 Vaccine ()Covid- 19 Vaccine ()[facility]: 59-16-1416Fbcmsbggs vaccinationMercy Health West Hospitaltart: 13-11-2256YUK TESTINGPAP TESTINGMercy Health West Hospitaltart: 42-30-4610Panbjoolq for malignant neoplasm of cervixPap Testing [facility]: 11-28-2022 End: 26-39-1908YGY W Auto Differential panel - BloodCBC + DIFF Lab Routine Primary hypercoagulable state (HCC) CVA, old, speech/language deficit Cerebral hyponatremia Expected: 11/28/2022 (Approximate), Expires: 10/04/2023[facility] Work Phone: Comment on above:Expected: 11/28/2022 (Approximate), Expires: 10/04/2023Start: 11-28-2022 End: 53-29-8916Ufoiysjhz (Vitamin B12) [Mass/volume] in Serum or PlasmaVITAMIN B12 BLOOD Lab Routine Primary hypercoagulable state (HCC) CVA, old, speech/language deficitCerebral hyponatremia Expected: 11/28/2022 (Approximate), Expires: 06/06/[address] [place] [address] Work Phone: Comment on above:Expected: 11/28/2022 (Approximate), Expires: 10/04/2023Start: 11-28-2022 End: 48-94-9659Ybnevvimysecx metabolic 2000 panel - Serum or PlasmaCOMP METABOLIC PANEL Lab Routine Primary hypercoagulable state (HCC) CVA, old, speech/language deficit Cerebral hyponatremia Expected: 11/28/2022 (Approximate), Expires: [address] [place] [address] Work Phone: Comment on above:Expected: 11/28/2022 (Approximate), Expires: 10/04/2023Start: 11-28-2022 End: 43-87-3930Cnucxcmr [Mass/volume] in Serum or PlasmaFERRITIN BLD Lab Routine Primary hypercoagulable state (HCC) CVA, old, speech/language deficit Cerebral hyponatremia Expected: 11/28/2022 (Approximate), Expires: 10/04/2023[facility] Work Phone: Comment on above:Expected: 11/28/2022 (Approximate), Expires: 10/04/2023Start: 11-28-2022 End: 17-33-0601Wdrwwb [Mass/volume] in Serum or PlasmaFOLATE SERUM Lab Routine Primary hypercoagulable state (HCC) CVA, old, speech/language deficit Cerebral hyponatremia Expected: 11/28/2022 (Approximate), Expires: 10/04/2023[facility] Work Phone: Comment on above:Expected: 11/28/2022 (Approximate), Expires: 10/04/2023Start: 11-28-2022 End: 24-50-1486Nnwx and Iron binding capacity panel - Serum or PlasmaIRON + TIBC Lab Routine Primary hypercoagulable state (HCC) CVA, old, speech/language deficit Cerebral hyponatremia Expected: 11/28/2022 (Approximate), Expires: [address] [place] [address] Work Phone: Comment on above:Expected: 11/28/2022 (Approximate), Expires: 10/04/2023Start: 09-21-2022 End: 29-49-8900PJU W Auto Differential panel - BloodCBC + DIFF Lab Routine Primary hypercoagulable state (HCC) 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, old, speech/language deficit Expected: 09/21/2022 (Approximate), Expires: 07/28/2023[facility] Work Phone: Comment on above:Expected: 09/21/2022 (Approximate), Expires: 07/28/2023Start: 09-21-2022 End: 57-78-6771Bxlwqwngl (Vitamin B12) [Mass/volume] in Serum or PlasmaVITAMIN B12 BLOOD Lab Routine Primary hypercoagulable state (HCC) 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, old, speech/language deficit Expected: 09/21/2022 (Approximate), Expires: 07/28/2023[facility] Work Phone: Comment on above:Expected: 09/21/2022 (Approximate), Expires: 07/28/2023Start: 09-21-2022 End: 24-49-4046Yymeohyhlbfhg metabolic 2000 panel - Serum or PlasmaCOMP METABOLIC PANEL Lab Routine Primary hypercoagulable state (HCC) 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, old, speech/language deficit Expected: 09/21/2022 (Approximate), Expires: 07/28/2023[facility] Work Phone: Comment on above:Expected: 09/21/2022 (Approximate), Expires: 07/28/2023Start: 09-21-2022 End: 09-74-8741Gpbaixrt [Mass/volume] in Serum or PlasmaFERRITIN BLD Lab Routine Primary hypercoagulable state (HCC) 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, old, speech/language deficit Expected: 09/21/2022 (Approximate), Expires: 07/28/2023[facility] Work Phone: Comment on above:Expected: 09/21/2022 (Approximate), Expires: 07/28/2023Start: 09-21-2022 End: 84-14-6385Aduxgw [Mass/volume] in Serum or PlasmaFOLATE SERUM Lab Routine Primary hypercoagulable state (HCC) 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, old, speech/language deficit Expected: 09/21/2022 (Approximate), Expires: 07/28/2023[facility] Work Phone: Comment on above:Expected: 09/21/2022 (Approximate), Expires: 07/28/2023Start: 09-21-2022 End: 25-51-9863Ryru and Iron binding capacity panel - Serum or PlasmaIRON + TIBC Lab Routine Primary hypercoagulable state (HCC) 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, old, speech/language deficit Expected: 09/21/2022 (Approximate), Expires: 07/28/2023[facility] Work Phone: Comment on above:Expected: 09/21/2022 (Approximate), Expires: 07/28/2023Start: 13-68-6796JYJNAUBCNJ ASSESSMENTDEPRESSION ASSESSMENT [facility]: 01-30-2022 End: 34-80-9099Uprxlnzy [Mass/volume] in Serum or PlasmaFERRITIN BLD Lab Routine Anemia, unspecified type Expected: 01/30/2022, Expires: 01/30/2023[facility] Work Phone: Comment on above:Expected: 01/30/2022, Expires: 01/30/2023Start: 01-30-2022 End: 48-83-5082Woqu and Iron binding capacity panel - Serum or PlasmaIRON + TIBC Lab Routine Anemia, unspecified type Expected: 01/30/2022, Expires: 01/30/2023 [place] Work Phone: Comment on above:Expected: 01/30/2022, Expires: 01/30/2023Start: 61-95-4921Stsuhldws vaccinationMercy Health West Hospitaltart: 12-29-2021 End: 41-65-0300Rtunzid encounter fngyruper25/01/2022 [facility]Start: 62-89-1669SGFKVSUSAK ASSESSMENTDEPRESSION ASSESSMENTMercy Health West Hospitaltart: 65-75-6398Guggi depression screening assessmentDEPRESSION SCREENINGMercy Health West Hospitaltart: 12-04-2020 Screening for malignant neoplasm of cervixCervical Cancer ScreeningMercy Health West Hospitaltart: 81-21-7524Cwlhrqeg screenDiabetes screenHENRICO [facility] Start: 69-64-5572SRH TESTINGHPV TESTINGMercy Health West Hospitaltart: 10-22-2015 Screening for malignant neoplasm of cervixHENRICO DOCTORS[facility]USStart: 05-49-8084YYA Vaccine (1 - 3-dose SCDM series)HPV Vaccine (1 - 3-dose SCDM series)[facility]: 80-48-5907WSZ Vaccines (1 - 3-dose SCDM series)HPV Vaccines (1 - 3-dose SCDM series)[facility]Start: 45-92-9323Satvhjtop for malignant neoplasm of cervixPap smearHENRICO DOCTORS' HOSPITAL—[facility] CAMPUSStart: 2004 DTaP,Tdap and Td Vaccines (1 - Tdap)DTaP,Tdap and Td Vaccines (1 - Tdap) [facility]: 81-70-8290Rsylbcbgh B Vaccine (1 of 3 - 19+ 3-dose series)Hepatitis B Vaccine (1 of 3 - 19+ 3-dose series)[facility]: 12-52-4787Nwzarxjlo B Vaccines (1 of 3 - 19+ 3-dose series)Hepatitis B Vaccines (1 of 3 - 19+ 3-dose series)[facility] HealthcareStart: 46-65-3497Wbgic BMI Follow Up PlanAdult BMI Follow Up PlanCape Fear/Harnett Healthtart: 99-70-0970Hoafw BMI ScreeningAdult BMI ScreeningCape Fear/Harnett Healthtart: 50-96-8150Fmimgtr ScreeningAnxiety ScreeningMercy Health West Hospitaltart: 04-99-3356Qheaksuiux Screening Depression ScreeningMercy Health West Hospitaltart: 92-10-8336BHEMTSVGI C SCREENING HEPATITIS C SCREENINGMercy Health West Hospitaltart: 13-04-7560Nokbctbgc C screeningHENRICO DOCTORS' [facility] CAMPUSStart: 01-34-5315XEH SCREENINGHIV SCREENINGThe [facility] Start: 89-17-6442HOI screeningHIV ScreeningMercy Health West Hospitaltart: 1998 History of varicella vaccinationVaricella Vaccines (1 of 2 - 13+ 2-dose series) [facility]Start: 47-94-3588Rkyqnjitzw ScreenDepression ScreenBON [facility], Incart: 86-82-3163Gokascfvlk ScreeningDepression ScreeningProHolzer Medical Center – Jacksontart: 85-53-1346Wkmtwxt ScreeningTobacco ScreeningCape Fear/Harnett Healthtart: 66-03-2141MYzQ/Tdap/Td Vaccines (1 - Tdap)DTaP/Tdap/Td Vaccines (1 - Tdap)[facility] ChildrenStart: 43-44-1813FTRPS-19 VACCINE (#1)COVID-19 VACCINE (#1)[facility]: 40-26-1392QKETR-19 VACCINE (1)COVID-19 VACCINE (1) [facility]: 92-49-3895IUJ Vaccines (1 of 1 - Standard series)MMR Vaccines (1 of 1 - Standard series)[facility] ChildrenStart: 00-95-4341Fpxvywjbo vaccine (1 of 2 - 2-dose childhood series)Varicella vaccine (1 of 2 - 2-dose childhood series)[facility]: 63-54-5614ZYJZK-19 Vaccine (#1) COVID-19 Vaccine (#1)[facility]: 77-66-9489ZDIIKDBRN B (1 of 3 - 3-dose series)HEPATITIS B (1 of 3 - 3-dose series)[facility]: 00-07-2553Bknkdvovp B Vaccine (1 of 3 - 3-dose series)Hepatitis B Vaccine (1 of 3 - 3-dose series)[facility] End: 06-89-4103Cjlfn Fetoprotein, MaternalBON [facility] Work Phone: comment on above:Once for 1 Occurrences starting 11/21/2021 until 11/21/2021 End: 32-56-1783Jyvwrlzvaal Ab, HEp-2 Substrate, S (NASEEM by IFA)Antinuclear Ab, HEp-2 Substrate, S (NASEEM by IFA) Lab Routine Antiphospholipid syndrome Antiphospholipid syndrome complicating , antepartum History of CVA (cerebrovascular accident) 1 Occurrences starting 02/16/2025 until 02/16/2026 [facility] Work Phone: comment on above:1 Occurrences starting 02/16/2025 until 6Bacteria identified in Urine by CultureUrine culture Microbiology Routine Missed menses Ordered: 04/04/2024[facility] HealthcareComment on above:Ordered: 04/04/2024acteria identified in Urine by CultureUrine culture Microbiology Routine Missed menses Ordered: 10/02/2024[facility] HealthcareComment on above:Ordered: 10/02/2024 End: 60-93-2239XJW W Auto Differential panel - BloodCBC + DIFF Lab Routine Primary hypercoagulable state (HCC) CVA, old, 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[facility]) Every 2 months for 6 Occurrences starting 01/30/2022 until 01/30/2023[facility] Work Phone: Comment on above:Every 2 months for 6 Occurrences starting 01/30/2022 until 3CBC W Auto Differential panel - BloodCBC and differential Lab Routine Missed menses , unspecified gestational age Ordered: 04/04/2024[facility] HealthcareComment on above:Ordered: 4CBC W Auto Differential panel - BloodCBC and differential Lab Routine Missed menses , unspecified gestational age Ordered: 10/02/2024[facility] HealthcareComment on above:Ordered: 10/02/2024BC W Auto Differential panel - BloodCBC and differential Lab Routine 28 weeks gestation of ([facility]) Ordered: 02/09/2025[facility] Healthcare Work Phone: comment on above:Ordered: 02/09/2025HLAMYDIA TRACHOMATIS (GENITO/STI)CHLAMYDIA TRACHOMATIS (GENITO/STI) Lab Routine Vaginal bleeding Vaginal discharge Ordered: 06/23/2024[facility] HealthcareComment on above: Ordered: 06/23/2024HLAMYDIA TRACHOMATIS (GENITO/STI)CHLAMYDIA TRACHOMATIS (GENITO/STI) Lab Routine Vaginal discharge Ordered: 11/20/2024[facility] Healthcare Comment on above:Ordered: 11/20/2024 End: 04-38-9770Nrnewrfqbb profile (C3 AND C4)Complement profile (C3 AND C4) Lab Routine Antiphospholipid syndrome Antiphospholipid syndrome complicating , antepartum History of CVA (cerebrovascular accident) 1 Occurrences starting 02/16/2025 until 02/16/2026[facility] SystemComment on above:1 Occurrences starting 02/16/2025 until 02/16/2026 End: 05-13-1930Xtajaqlzatdyf metabolic 2000 panel - Serum or PlasmaCOMP METABOLIC PANEL Lab Routine Primary hypercoagulable state (HCC) CVA, old, 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) Every 2 months for 6 Occurrences starting 01/30/2022 until 01/30/2023[facility] Work Phone: Comment on above:Every 2 months for 6 Occurrences starting 01/30/2022 until 01/30/2023 End: 68-97-2620NOJ double-stranded (dsDNA) Abs by Crithidia luciliae IFADNA double-stranded (dsDNA) Abs by Crithidia luciliae IFA Lab Routine Antiphospholipid syndrome Antiphospholipid syndrome complicating , antepartum History of CVA (cerebrovascular accident) 1 Occurrences starting 02/16/2025 until 02/16/2026[facility] SystemComment on above:1 Occurrences starting 02/16/2025 until 02/16/2026 End: 91-05-6500NMJ PanelENA Panel Lab Routine Antiphospholipid syndrome Antiphospholipid syndrome complicating , antepartum History of CVA (cerebrovascular accident) 1 Occurrences starting 02/16/2025 until 02/16/2026 [facility] SystemComment on above:1 Occurrences starting 02/16/2025 until 02/16/2026Hemoglobin A1c/Hemoglobin.total in BloodHemoglobin A1c Lab Routine Missed menses , unspecified gestational age Ordered: 04/04/2024[facility] HealthcareComment on above:Ordered: 04/04/2024Hemoglobin A1c/Hemoglobin.total in BloodHemoglobin A1c Lab Routine Missed menses , unspecified gestational age Ordered: 10/02/2024[facility] HealthcareComment on above:Ordered: 10/02/2024Hepatitis B virus surface Ag [Presence] in Serum or Plasma by ImmunoassayHepatitis B surface antigen Lab Routine Missed menses , unspecified gestational age Ordered: 04/04/2024[facility] HealthcareComment on above: Ordered: 04/04/2024Hepatitis B virus surface Ag [Presence] in Serum or Plasma by ImmunoassayHepatitis B surface antigen Lab Routine Missed menses , unspecified gestational age Ordered: 10/02/2024[facility] HealthcareComment on above: Ordered: 10/02/2024Hepatitis C virus Ab [Presence] in Serum or Plasma by ImmunoassayHepatitis C antibody Lab Routine Missed menses , unspecified gestational age Ordered: 04/04/2024[facility] HealthcareComment on above:Ordered: 04/04/2024Hepatitis C virus Ab [Presence] in Serum or Plasma by Immunoassay Hepatitis C antibody Lab Routine Missed menses , unspecified gestational age Ordered: 10/02/2024[facility] HealthcareComment on above:Ordered: 10/02/2024HIV-1/HIV-2 antigen/antibody combination immunoassayHIV-1 and HIV-2 antibodies Lab Routine Missed menses , unspecified gestational age Ordered: 04/04/2024[facility] HealthcareComment on above:Ordered: 04/04/2024 HIV-1/HIV-2 antigen/antibody combination immunoassayHIV-1 and HIV-2 antibodies Lab Routine Missed menses , unspecified gestational age Ordered: 10/02/2024[facility] HealthcareComment on above:Ordered: 10/02/2024Neisseria gonorrhoeae DNA [Presence] in Unspecified specimen by LELO with probe detection Neisseria gonorrhea DNA probe, direct Lab Routine Vaginal bleeding Vaginal discharge Ordered: 06/23/2024[facility] HealthcareComment on above:Ordered: 06/23/2024 Neisseria gonorrhoeae DNA [Presence] in Unspecified specimen by LELO with probe detectionNeisseria gonorrhea DNA probe, direct Lab Routine Vaginal discharge Ordered: 11/20/2024[facility] HealthcareComment on above:Ordered: 11/20/2024Reagin Ab [Presence] in Serum by RPRRPR Lab Routine Missed menses , unspecified gestational age Ordered: 04/04/2024[facility] HealthcareComment on above:Ordered: 4Reagin Ab [Presence] in Serum by RPRRPR Lab Routine Missed menses , unspecified gestational age Ordered: 10/02/2024[facility] HealthcareComment on above:Ordered: 10/02/2024Rubella antibody, IgGRubella antibody, IgG Lab Routine Missed menses , unspecified gestational age Ordered: 04/04/2024 [facility] HealthcareComment on above:Ordered: 04/04/2024ubella antibody, IgGRubella antibody, IgG Lab Routine Missed menses , unspecified gestational age Ordered: 10/02/2024[facility] HealthcareComment on above:Ordered: 10/02/2024 SURESWAB(R) ADVANCED VAGINITIS PLUS, TMASURESWAB(R) ADVANCED VAGINITIS PLUS, TMA Pathology and Cytology Routine Vaginal bleeding Vaginal discharge Ordered: 06/23/2024[facility] Healthcare Work Phone: comment on above:Ordered: 06/23/2024SURESWAB(R) ADVANCED VAGINITIS PLUS, TMASURESWAB(R) ADVANCED VAGINITIS PLUS, TMA Pathology and Cytology Routine Vaginal discharge Ordered: 11/20/2024[facility] Healthcare Work Phone: comment on above:Ordered: 11/20/2024Thyrotropin [Units/volume] in Serum or PlasmaTSH Lab Routine Hypothyroidism (acquired) ([facility]) Ordered: 04/04/2024[facility] HealthcareComment on above:Ordered: 04/04/2024 Thyrotropin [Units/volume] in Serum or PlasmaTSH Lab Routine History of thyroid disease Ordered: 06/02/2024[facility] Work Phone: comklok on above:Ordered: 06/02/2024Thyrotropin [Units/volume] in Serum or PlasmaTSH Lab Routine Thyroid disease ([facility]) Ordered: 10/02/2024[facility] HealthcareComment on above:Ordered: 10/02/2024 Thyrotropin [Units/volume] in Serum or PlasmaTSH Lab Routine Second trimester ([facility]) Thyroid disease Ordered: 12/11/2024[facility] Healthcare Work Phone: comxeox on above:Ordered: 12/11/2024UA DIP, URINE (POC)UA DIP, URINE (POC) Lab Routine Infective urethritis Ordered: 08/01/2021 [place] Work Phone: Comment on above:Ordered: 08/01/2021Vitamin D 1,25 dihydroxyVitamin D 1,25 dihydroxy Lab Routine Low vitamin D level Ordered: 04/04/2024[facility] HealthcareComment on above:Ordered: 04/04/2024 End: 21-79-0195Wbgqmvs D 25 hydroxyVitamin D 25 hydroxy Lab Routine Insulin controlled gestational diabetes mellitus (GDM) in second trimester 1 Occurrences starting 12/03/2024 until 12/03/2025[facility] Work Phone: comment on above:1 Occurrences starting 12/03/2024 until 12/03/2025[facility] Immunizations Immunization DateImmunizationNotesCare LgckjqosCywgqicl61-37-2424ggbpmoxch virus vaccine, unspecified formulationKristofer Calix MD Work Phone: [facility]Rwgevp32-81-3172kwphzui toxoid, reduced diphtheria toxoid, and acellular pertussis vaccine, adsorbedMa Sand Work Phone: [facility] HospitalNEGATED: Highlighted row has not occurred!96-55-3330gvchaghcl virus vaccine, unspecified formulationScott PRAVEEN [phone]-QfsfjSumma Health [facility] Primary CareNEGATED: Highlighted row has not occurred!70-41-0610lprmwbkra virus vaccine, unspecified formulationPERNELL LONGORIA [phone]-DjerqSumma Health [facility] [place] Payers DatePayer CategoryPayerPolicy [id number] 2021Medicaid [place] [employer] MEDICAID [id number] 2020-Present [phone] [address] [place] [address] [id number] 2021Medicaid [id number] 2.16.840.1.085453.3.579.[id number] 2.16.840.1.976006.3.579.2.248[id number] 2.16.840.1.946613.3.579.2.93677-79-5260Qsioxic4268042 2.16.840.1.076440.3.579.2.86474-60-7565Hrhhmww4063088 2.16.840.1.304579.3.579.2.43865-21-5267Uwwkrjr1847548 2.16840.1.906133.3.579.2.02763-71-1333Plmdsqr0510646 2.16840.1.365709.3.579.2.72616-50-9160Bumuixt9389279 2.16.840.1.314081.3.579.2.97736-55-7328Sjeusap2290065 2.16.840.1.076971.3.579.2.10151-77-8796Ewzdmmd0991793 2.16.840.1.073429.3.579.2.29457-41-9841Sjgedzt3810568 2.16.840.1.643599.3.579.2.18387-42-4233Vebpuqj0953157 2.16.840.1.389865.3.579.2.00539-66-9946Pjherqi2826469 2.16.840.1.956412.3.579.2.67789-37-8389Ybroycg0251493 2.16840.1.180521.3.579.2.34655-15-9113Zqblzxm0557036 2.16840.1.043455.3.579.2.39535-50-6255Vimwrdl8468824 2.16840.1.062390.3.579.2.54709-14-2156Rvrlwwr6431174 2.16840.1.738770.3.579.2.47527-99-0797Ixxssjo5850278 2.16840.1.393831.3.579.2.03394-75-0043Fisdelu9139882 2.16840.1.251410.3.579.2.81289-95-5046Kudzhml9217652 2.840.1.541919.3.579.2.48150-09-5365Vkygddd9653257 2.840.1.313346.3.579.2.62971-64-5257Tqedbrs0639112 2.840.1.033288.3.579.2.72678-38-5031Rqveasy1516348 2.840.1.886640.3.579.2.42558-54-3148Zwigasd5092094 2.840.1.231769.3.579.2.38104-09-0682Psjyocv0135814 2.840.1.164467.3.579.2.70494-88-3417Acwvamp9780792 2.16840.1.183064.3.579.2.84864-59-2654Frqwxil6213995 2.16840.1.665565.3.579.2.97707-41-5242Kczuhud6613129 2.16840.1.609606.3.579.2.39333-77-7677Ealpnqy9204813 2.16840.1.945535.3.579.2.74870-92-2749Dmlclnf69341231 2.16840.1.928655.3.579.2.76798-44-6621Ovwznqv44868639 2.16840.1.725519.3.579.2.78282-95-9752Bdicrrp22978724 2.16840.1.640619.3.579.2.81048-44-9257Fcnrnhi16370507 2.16840.1.016850.3.579.2.75820-78-4574Hdnmizr07156843 2..1.772970.3.579.2.51734-38-8088Eyldphs15570495 2..1.847892.3.579.2.64798-71-7980Cndmyio94781893 2.840.1.075598.3.579.2.95838-71-0320Ptfxeuj34768812 2.0.1.858284.3.579.2.40191-12-6777Zmnzons22927421 2.0.1.254905.3.579.2.88712-09-2303Ndxewat04574835 2..1.228765.3.579.2.58604-31-8268Advuytq70353306 2.16840.1.585169.3.579.2.19182-76-8668Hqtfzem40533706 2.16840.1.377250.3.579.2.33707-76-6062Uxgbyjp42849933 2.16840.1.405692.3.579.2.08899-39-8567Ecjufjy07683525 2.16840.1.344730.3.579.2.41373-82-6596Eycmctj35640603 2.16840.1.872660.3.579.2.23825-46-9173Dgqmldu78169144 2.16840.1.303899.3.579.2.70554-72-9774Okfsrtn52244884 2.16840.1.074394.3.579.2.04334-43-2042Ghnziuh75034290 2.840.1.624623.3.579.2.23844-54-5330Rrdumja51145917 2.0.1.556109.3.579.2.82305-13-0124Lquasjk42561378 2.840.1.791255.3.579.2.57069-63-3216Sqgkean40269634 2.0.1.646123.3.579.2.10050-34-7353Gnzlwsw23387135 2.840.1.973853.3.579.2.67849-27-7268Rvkjrqf71112343 2.0.1.179998.3.579.2.60470-33-4920Mhceujk20899280 2.840.1.372314.3.579.2.05965-27-6270Revulzk82632932 2.0.1.977541.3.579.2.75533-26-2387Fztoqik97730989 2.840.1.749082.3.579.2.03960-12-9319Ecjgher18511104 2.840.1.059950.3.579.2.24514-18-3322Ybpkhdi35253347 2.840.1.174742.3.579.2.89391-90-0520Iismrwp56568330 2.16840.1.322730.3.579.2.96762-68-7808Czptoxm63914262 2.16840.1.467186.3.579.2.65886-23-1272Zwqdyrs45871675 2.16840.1.393804.3.579.2.03315-89-6254Gizjdze75824230 2.16840.1.699003.3.579.2.07985-58-3503Ffligjp91031372 2.16840.1.820897.3.579.2.75232-68-0797Fvkzmzq72899235 2.0.1.530148.3.579.2.12294-94-3312Akvaywe25663483 2.0.1.456975.3.579.2.29826-63-8221Xdwytyj78064690 2.840.1.310537.3.579.2.25955-35-6350Lhhcpus01196941 2.840.1.822167.3.579.2.52197-78-5050Bgxahja89651615 2.840.1.826043.3.579.2.11242-96-9492Wwkdjkb35428228 2.0.1.518657.3.579.2.41096-07-9753Jemetqo88641558 2.840.1.823185.3.579.2.19476-46-0367Bkrptwy68840399 2.840.1.411205.3.579.2.28094-76-3903Llrgmfy45835947 2.16840.1.847148.3.579.2.09236-91-3093Adufdab99569837 2.840.1.553303.3.579.2.43003-61-7637Zpiuprj22427032 2.16840.1.291174.3.579.2.05028-80-7855Dntbqks718437072 2.16840.1.186900.3.579.2.899214-32-2687Bzkvcei720409853 2.16840.1.996063.3.579.2.586026-22-7626Kohqzpq002322951 2.16840.1.308851.3.579.2.191625-73-1761Laqbwaz13017250 2.840.1.908554.3.579.2.18416-40-5744Acekzte03119545 2.840.1.045872.3.579.2.822185-72-2656Otghali04561308 2.840.1.970344.3.579.2.609021-83-6132Lkpsjqx91936936 2.840.1.721262.3.579.2.535068-86-5234Iedkbdp40027206 2.840.1.533603.3.579.2.287947-75-3511Enwtumr05057385 2.840.1.342536.3.579.2.899645-05-1049Mahyolo26771704 2.840.1.326633.3.579.2.896980-90-9571Dhnclzo82732208 2.840.1.942312.3.579.2.243701-64-5142Yeprpsu36703363 2.840.1.785584.3.579.2.651746-42-3640Anuqbjg19545728 2.16840.1.725845.3.579.2.808911-77-5243Bsugrmj62591130 2.16840.1.357887.3.579.2.765081-90-8507Kcxtens0892343 2.16.840.1.890494.3.579.2.683936-59-9896Cjjsoxt1946160 2.16840.1.741876.3.579.2.549587-50-2507Jwvhgvt6546291 2.16840.1.311640.3.579.2.117786-91-3420Fiicxdh9196229 2.16840.1.126617.3.579.2.241972-84-6540Dcflbrt8134860 2.0.1.483635.3.579.2.934422-12-7513Nltknrj0442748 2.840.1.752188.3.579.2.188302-65-5831Cjqnmrh838323588 2.840.1.533923.3.579.2.426637-32-7394Fuixdgn370808296 2.840.1.660844.3.579.2.318915-98-0984Epazspl375657984 2.840.1.115973.3.579.2.844833-55-6882Irvzdmi760738184 2.840.1.422236.3.579.2.115798-12-5242Ftdztgb420391352 2.840.1.524587.3.579.2.965822-47-2745Bpaxxqh098723222 2.16840.1.104912.3.579.2.405002-46-6879Gbpiztu216688513 2.16840.1.149515.3.579.2.596121-11-9611Wocqttw532295624 2.16840.1.477121.3.579.2.206007-52-6094Edab-ypf83-27-4155UyamtdlX7810899912 98-80-4874Whtmuyu72905275735 1.2.840.465974.1.13.239.2.7.3.393763.315Unknown 4132528 2.16.840.1.309945.3.579.2.593 Social History DateTypeDetailFacilityStart: 09-10-2017 End: 56-79-0202Rlojwnw smoking status NHISNever smoked tobaccoThe [facility] Hospital Start: 09-10-2017 End: 86-39-7041Gqozryz use and exposureSmokeless tobacco non-userMercy Health West Hospitaltart: 08-01-2021 End: 44-13-4720Sjbhukh intakeCurrent non-drinker of alcohol (finding)[facility] Hospital[facility]: 95-19-0353Wxx Assigned At BirthNot on fileMercy Health West Hospitaltart: 07-22-2021 End: 82-72-4914Boqfyxwu to SARS-CoV-2 (event)Not sureMercy Health West Hospitaltart: 05-28-2017 End: 54-24-9147Qknprhq smoking statusNeverSelect Medical [facility] Start: 06-10-2020 End: 88-34-3945Twr Assigned At BirthF[facility]alW[facility] Start: 11-21-2021 End: 88-19-3212Mlnchfs intakeEx-drinker (finding)[facility] [employer] Work Phone: start: 29-47-4032Amzucnw SDOH Alcohol Comment occasionallyBON [employer] Phone: start: 77-01-4265OclqjiraROP [employer] Phone: start: 06-10-2020 End: 55-41-1111Dxxdfnb of Social functionMercy Health West Hospitaltart: 04-04-2024 End: 86-61-2354Ijhimruht beverage intakeLifetime non-drinker (finding)[facility] HealthcareTobacco smoking status IAISUnknown if ever smokedPremier Health [facility] Work Phone: Start: 11-27-2018 End: 79-97-4588DmjDagxiw (finding)[facility] Campustart: 39-09-6666Yzc [facility]igned At [facility] Procedure CodeEquipment CodeEquipment Original TextEquipment IdentifierDates [id number]: 10-30-2024 End: each by In Vitro route Daily Use to check FSBS four times daily [id number]: 10-30-2024 End: 20-74-9652Ifj a new needle with each injection ( 1- 5 times per day) [id number]: 12-03-2024 Functional Status PhjyDbvqflmubnFwhfhqPuortkhk00-37-4079Sbqtksl Health Questionnaire 2 item (PHQ- 2) [Reported][facility] ChildrenBzrypklytj11-62-2382Bgwihra Health Questionnaire 2 item (PHQ- 2) [Reported][facility] for ChildrenCxdnuwjvnn18-12-2136Gfuicoiwzf StatusN/[facility] Yrxw16-24-7522Ikzslivwdh StatusN/[facility] Rxxyf56-30-1219Glcoocxqwc StatusN/[facility] Uxde61-20-3356Melutzufiy StatusN/[facility] Usaj23-71-4113Kyvknkkfei StatusN/[facility] 69-89-2381Njglpnhfch StatusN/[facility] Ilhi34-03-1813 Functional StatusN/[facility] Dvam53-82-1488Bypgljypxd StatusN/[facility] Vedz54-55-6514Hgvufbwvta Status N/[facility] Juia95-68-8406Qgomzidnog StatusN/[facility] Primary Pzqx37-57-8021Jtkzslhhdh StatusN/[facility] Fkju04-25-6913Gbjtnhghld StatusN/[facility] Clinical Notes 07-26-2019 to 03-11-2025 Note Date & ShjjHqjzFvfnioyg23-93-0615 History of Present illness Narrative* Charles Cortes [...] age) multigravida 35+ Antiphospholipid syndrome Hypothyroid Stroke ([facility]) Gestational diabetes mellitus (GDM) in [...] Antiphospholipid antibody syndrome Cerebral infarction, unspecified ([facility]) 05/16/2019 Hypothyroid Migraine without aura and without status migrainosus, not intractable 09/12/2017 Stroke ([facility]) 2015 REVIEW OF SYSTEMS: Head and Neck: [...] Visit via Real-time Synchronous Audiovisual Provider Location: [facility] AT [address] [address] Patient Location: Patient's home Patient Location Door Maker: None Video Visit Consent Statement: I discussed [...] that there are some limitations compared to kqwp-uh-ptew evaluations. We elected to proceed. documented in this encounterCleveland Clinic Euclid HospitalToolmeet [facility] HealthWbqdiq19-37-5123 NoteHNO ID: [id number] Author: KATHERINE NEGRETE APRN.CLINICAL LAW PROFESSOR Service: ? Author Type: Nurse Practitioner Type: Progress Notes Filed: 03/02/2025 20:18 Note Text: NAME: Sanna Rendon CLINIC NO.: [id number] DATE OF SERVICE: March 02, 2025 ([place]) [...] later in 2018. These were found in [place], [place]. 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 to 40 mg [...] She has a h (more content not included)...[place] [address]-27-2025 History of Present illness Narrative* Rosi Murray, CHEMICAL RESEARCH TECHNICIAN - 02/23/2025 9:00 AM EDT Reason for [...] Diagnosis Date Noted 32 weeks gestation of ([facility]) 11/28/2019 Abdominal pain 06/12/2023 Acute bronchitis due to infection 06/12/2023 Acute on chronic vesicular eczema of hands and feet 11/15/2023 Anemia complicating childbirth ([facility]) 01/16/2020 Anticoagulant long-term use 02/22/2020 Antiphospholipid antibody positive 09/10/2017 Antiphospholipid antibody syndrome ([facility]) 07/07/2019 Anxiety 06/12/2023 Blood pressure elevated without history of HTN 11/15/2023 BMI 37.0-37.9, adult 11/15/2023 Cerebral infarction, unspecified ([facility]) 05/16/2019 Cerebrovascular accident (CVA) due to stenosis of middle cerebral artery ([facility]) 02/22/2020 Cervicalgia 02/05/2019 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 ([facility]) 01/08/2020 Coagulation defect, unspecified ([facility]) 02/05/2019 Cold intolerance 11/15/2023 Deficiency of other specified B group vitamins 05/16/2019 Deviated septum 11/15/2023 Dizziness and giddiness 02/05/2019 Dry mouth 11/15/2023 Dysfunction of eustachian tube 06/12/2023 Dyspnea 06/12/2023 Elevated blood pressure reading 11/15/2023 Encounter for supervision of normal , unspecified, first trimester ([facility]) 05/29/2019 Environmental allergies 11/15/2023 Fatigue 12/29/2016 First degree perineal laceration during delivery ([facility]) 01/16/2020 Frequency of micturition 02/19/2019 Genitourinary symptoms 08/19/2021 Gestational diabetes mellitus (GDM), antepartum ([facility]) 01/26/2022 H/O: hypothyroidism 11/15/2023 Hematochezia [...] anemia 01/16/2020 Irregular uterine bleeding 11/15/2023 problem ([facility]) 06/12/2023 Less than 8 weeks gestation of ([facility]) 06/05/2019 senior living (current) use of 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/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 02/05/2019 Migraine without aura and without status migrainosus, not intractable 09/12/2017 Morbid obesity ([facility]) 11/15/2023 Muscle fasciculation 08/19/2021 Nasal polyps 11/15/2023 Non-smoker 11/15/2023 NEETA (obstructive sleep apnea) 11/15/2023 Other acute postprocedural pain 02/03/2019 Other general symptoms and signs 10/28/2019 Other immediate hemorrhage ([facility]) 01/16/2020 Other specified noninflammatory disorders of vagina 02/21/2019 Pain in joint 12/29/2016 Palpitations 08/26/2019 Paresthesia of bilateral legs 11/15/2023 Pelvic and perineal pain 02/01/2019 Personal history of urinary (tract) infections 01/16/2020 Pre-diabetes 11/15/2023 Primary hypercoagulable state ([facility]) 08/01/2022 Pruritus, unspecified 01/02/2020 Psychogenic hyperventilation 06/12/2023 Raised antibody titer 09/25/2017 Right lower quadrant pain 11/15/2023 Right otitis externa 11/15/2023 Salivary gland swelling 11/15/2023 Single live ([facility]) 01/15/2020 Snoring 11/15/2023 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) 12/30/2019 Suspected severe acute respiratory syndrome coronavirus 2 (SARS-CoV-2) infection 06/12/2023 SVT (supraventricular tachycardia) ([facility]) 08/26/2019 Syncope and collapse 06/03/2018 Other bacterial infections of unspecified site 06/27/2019 Thrombocytopenia, unspecified 11/20/2019 Hypoglycemia 06/12/2023 Unspecified condition associated with female genital organs and menstrual cycle 05/09/2019 Unspecified ovarian cyst, right side 02/06/2019 Urinary tract infection 10/16/2019 Referred otalgia of right ear 11/19/2023 LPRD (laryngopharyngeal reflux disease) 11/19/2023 H/O loss 01/05/2025 Multigravida of advanced maternal age in second trimester ([facility]) 01/05/2025 Thyroid disease 01/05/2025 Resolved Ambulatory Problems Diagnosis Date Noted No Resolved Ambulatory Problems Past Medical History: Diagnosis Date AMA (advanced maternal age) multigravida 35+ ([facility]) Anemia Antiphospholipid syndrome ([facility]) Gestational [...] drainage of cyst WISDOM TOOTH EXTRACTION 2007 [place] teeth REVIEW OF SYSTEMS Review of Systems: [...] nursing note reviewed. Exam conducted with a resident care associate present. Vitals: Estimated body mass index is 33.98 kg/m as calculated from the following: Height as of 11/19/23: 5' 6 . Weight as of this encounter: 210 lb 8 oz. BP: 116/72 Patient's last menstrual period was 07/28/2024. Assessment/Plan ICD-10-CM 1. Third trimester ([facility]) Z34.93 2. 30 weeks gestation of ([facility]) Z3A.30 POCT urinalysis dipstick manually [...] of: Wilton Herrmann DO documented in this encounterShriners Hospitals for ChildrenBnndfhqevv72-49-9382 History of Present illness Narrative* Sam Callahan MD MPH - 02/16/2025 1:45 PM EDT Images from the original note were not included. ADULT RHEUMATOLOGY CLINIC NOTE [id number] [address] Patient Name: Sanna Rendon Subjective Reason for [...] following with two outside specialists (Neurology at [facility] and Hematology at [facility]) for management of her APS. The [...] health issues unclear exact diagnoses Note from [facility] Provider (Dr. Noyola): Recent note from Neurologist: [...] age) multigravida 35+ Antiphospholipid syndrome Hypothyroid Stroke ([facility]) Gestational diabetes mellitus (GDM) in second trimester [...] Antiphospholipid antibody syndrome Cerebral infarction, unspecified ([facility]) 05/16/2019 Hypothyroid Migraine without aura and without status migrainosus, not intractable 09/12/2017 Stroke ([facility]) 2016 reviewed. Social History Social [...] weeks . She is currently following with [facility] for her , neurology through the [facility], and hematology through [facility]. Based on extensive review of her [...] Expiration Date: 02/16/2026 Release to patient via Socket Mobilet?: Immediate [1] Complement profile (C3 AND C4) Standing Status: Future Expiration Date: 02/16/2026 Release to patient via WealthTouchhart?: Immediate [1] DNA double-stranded (dsDNA) Abs by Rene angel IFA Standing Status: Future Expiration Date: 02/16/2026 Release to patient via WealthTouchhart?: Immediate [1] KELLEN Panel Standing Status: Future Expiration Date: 02/16/2026 Release to patient via WealthTouchhart?: Immediate [1] Treatment Plan: -if the patient [...] visit is OK Sam Callahan MD, MPH [facility] [address] [place] [address] Total iijw-dq-hmoq time was 55 minutes with more than [...] you for your understanding. documented in this encounterSalem Regional Medical Center10-14-2025 Miscellaneous Notes* Telephone Encounter - Annita KendallPRISCILLA [...] in blood sugars weekly. documented in this encounterSt Johnsbury [email or web address] Telephone encounter Note* Telephone Encounter - PRISCILLA [...] Continue to send in blood sugars weekly. [employer] Work Phone: [phone] History of Present illness Narrative* Rosi Murray [...] Diagnosis Date Noted 32 weeks gestation of ([facility]) 11/28/2019 Abdominal pain 06/12/2023 Acute bronchitis due to infection 06/12/2023 Acute on chronic vesicular eczema of hands and feet 11/15/2023 Anemia complicating childbirth ([facility]) 01/16/2020 Anticoagulant long-term use 02/22/2020 Antiphospholipid antibody positive 09/10/2017 Antiphospholipid antibody syndrome ([facility]) 07/07/2019 Anxiety 06/12/2023 Blood pressure elevated without history of HTN 11/15/2023 BMI 37.0-37.9, adult 11/15/2023 Cerebral infarction, unspecified ([facility]) 05/16/2019 Cerebrovascular accident (CVA) due to stenosis of middle cerebral artery ([facility]) 02/22/2020 Cervicalgia 02/05/2019 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 ([facility]) 01/08/2020 Coagulation defect, unspecified ([facility]) 02/05/2019 Cold intolerance 11/15/2023 Deficiency of other specified B group vitamins 05/16/2019 Deviated septum 11/15/2023 Dizziness and giddiness 02/05/2019 Dry mouth 11/15/2023 Dysfunction of eustachian tube 06/12/2023 Dyspnea 06/12/2023 Elevated blood pressure reading 11/15/2023 Encounter for supervision of normal , unspecified, first trimester ([facility]) 05/29/2019 Environmental allergies 11/15/2023 Fatigue 12/29/2016 First degree perineal laceration during delivery ([facility]) 01/16/2020 Frequency of micturition 02/19/2019 Genitourinary symptoms 08/19/2021 Gestational diabetes mellitus (GDM), antepartum ([facility]) 01/26/2022 H/O: hypothyroidism 11/15/2023 Hematochezia [...] anemia 01/16/2020 Irregular uterine bleeding 11/15/2023 problem ([facility]) 06/12/2023 Less than 8 weeks gestation of ([facility]) 06/05/2019 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 of 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/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 02/05/2019 Migraine without aura and without status migrainosus, not intractable 09/12/2017 Morbid obesity ([facility]) 11/15/2023 Muscle fasciculation 08/19/2021 Nasal polyps 11/15/2023 Non-smoker 11/15/2023 NEETA (obstructive sleep apnea) 11/15/2023 Other acute postprocedural pain 02/03/2019 Other general symptoms and signs 10/28/2019 Other immediate hemorrhage ([facility]) 01/16/2020 Other specified noninflammatory disorders of vagina 02/21/2019 Pain in joint 12/29/2016 Palpitations 08/26/2019 Paresthesia of bilateral legs 11/15/2023 Pelvic and perineal pain 02/01/2019 Personal history of urinary (tract) infections 01/16/2020 Pre-diabetes 11/15/2023 Primary hypercoagulable state ([facility]) 08/01/2022 Pruritus, unspecified 01/02/2020 Psychogenic hyperventilation 06/12/2023 Raised antibody titer 09/25/2017 Right lower quadrant pain 11/15/2023 Right otitis externa 11/15/2023 Salivary gland swelling 11/15/2023 Single live ([facility]) 01/15/2020 Snoring 11/15/2023 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) 12/30/2019 Suspected severe acute respiratory syndrome coronavirus 2 (SARS-CoV-2) infection 06/12/2023 SVT (supraventricular tachycardia) ([facility]) 08/26/2019 Syncope and collapse 06/03/2018 Other bacterial infections of unspecified site 06/27/2019 Thrombocytopenia, unspecified 11/20/2019 Hypoglycemia 06/12/2023 Unspecified condition associated with female genital organs and menstrual cycle 05/09/2019 Unspecified ovarian cyst, right side 02/06/2019 Urinary tract infection 10/16/2019 Referred otalgia of right ear 11/19/2023 LPRD (laryngopharyngeal reflux disease) 11/19/2023 H/O loss 01/05/2025 Multigravida of advanced maternal age in second trimester ([facility]) 01/05/2025 Thyroid disease 01/05/2025 Resolved Ambulatory Problems Diagnosis Date Noted No Resolved Ambulatory Problems Past Medical History: Diagnosis Date AMA (advanced maternal age) multigravida 35+ ([facility]) Anemia Antiphospholipid syndrome ([facility]) Gestational diabetes ([facility]) Heartburn Hypothyroid Stroke (HCC) HISTORY PAST MEDICAL HISTORY SOCIAL HISTORY Past Medical History: Diagnosis Date AMA (advanced maternal age) multigravida 35+ ([facility]) Anemia Antiphospholipid syndrome ([facility]) Gestational diabetes ([facility]) Heartburn Hypothyroid Stroke (HCC) Social [...] drainage of cyst WISDOM TOOTH EXTRACTION 2007 [place] teeth REVIEW OF SYSTEMS Review of Systems: [...] nursing note reviewed. Exam conducted with a resident care associate present. Vitals: Estimated body mass index is 34.12 kg/m as calculated from the following: Height as of 11/19/23: 5' 6 . Weight as of this encounter: 211 lb 6.4 oz. BP: 124/76 Patient's last menstrual period was 07/28/2024. ASSESSMENT & PLAN ICD-10-CM 1. Third trimester ([facility]) Z34.93 2. 28 weeks gestation of ([facility]) Z3A.28 CBC and differential POCT [...] givenorders and they were also faxed to [facility] and [facility] Scheduling. Patient to return to clinic in 2 weeks for routine OB appointment. Documented by Rosi Murray LPN on behalf of: Wilton Herrmann DO documented in this encounterShriners Hospitals for [id number] History of Present illness Narrative* Mukul Noyola MD - 02/06/2025 2:00 PM EDT Images from the original note were not included. Video Visit via Real-time Synchronous Audiovisual Provider Location: [facility] AT [address] [phone] Patient Location: Other Home Patient Location Door Maker: None Video Visit Consent Statement: I discussed [...] that there are some limitations compared to [id number] evaluations. We elected to proceed. [facility] Maternal- Medicine Office Note Reason For Office [...] will be undergoing genetic testing through the children's literature professor. There is family history of hypospadias and [...] Antiphospholipid antibody syndrome Cerebral infarction, unspecified ([facility]) 05/16/2019 Hypothyroid Migraine without aura and without status migrainosus, not intractable 09/12/2017 Stroke ([facility]) 2016 PSHIST: Past Surgical History: [...] to continue to send blood glucoses to [facility] to review - continue Lovenox 40 mg [...] Mukul Noyola MD, FACOG (she/hers) Maternal- Medicine [facility] [address] [place] [address] This document was created with Nanoradio technology. Though I make every effort to review the dictation as it is transcribed, on occasion the spoken word can be misinterpreted by the technology leading to inappropriate words, phrases, or sentences. This note is addressed to the requesting provider as a consultation for clinical guidance. Specificmedical abbreviations are occasionally used and those are generally approved by the [place]?Board of?Obstetrics and?Gynecology?as well as?Elizabeth s abbreviations. The above plan of care was based solely on the diagnoses for which a consultation was requested. ?More frequent testing may be indicated based on her other medical/obstetrical conditions. The management of other or medical conditions is beyond the scope of requested consultation and will c ontinue to be followed by the primary locomotive oiler or primary care provider. Note to patient: [...] opinion of the practitioner. documented in this encounterCleveland Clinic Euclid HospitalToolmeet University Of [facility] [id number] NoteEchocardiology Procedure Exam Date/Time Accession # Ordering Dr. Echo Transthoracic 02/03/2025 10:00 EDT [id number] Wilton HERRMANN DO Complete CPT code 72182 47273 Reason for Exam (Echo Transthoracic Complete) Dizziness and giddiness E07.9, O09.522 R42 Report [facility] [address] [place] [address] Adult Echocardiogram Report Name: SANNA RENDON Study Date: 02/03/2025 08:09 AM BP: 116/76 mmHg Patient Location: FT CAR F HR: 84 : 1985 Gender: Female Height: 66 in Age: 39 yrs Ethnicity: [facility] Weight: 205 lb Reason For Study: [...] Signed by: Merrick Watkins MD Transcribed by: [facility] Technologist: [facility]09-22-2025 History of Present illness Narrative* Celia [...] Diagnosis Date Noted 32 weeks gestation of ([facility]) 11/28/2019 Abdominal pain 06/12/2023 Acute bronchitis due to infection 06/12/2023 Acute on chronic vesicular eczema of hands and feet 11/15/2023 Anemia complicating childbirth ([facility]) 01/16/2020 Anticoagulant long-term use 02/22/2020 Antiphospholipid antibody positive 09/10/2017 Antiphospholipid antibody syndrome ([facility]) 07/07/2019 Anxiety 06/12/2023 Blood pressure elevated without history of HTN 11/15/2023 BMI 37.0-37.9, adult 11/15/2023 Cerebral infarction, unspecified ([facility]) 05/16/2019 Cerebrovascular accident (CVA) due to stenosis of middle cerebral artery ([facility]) 02/22/2020 Cervicalgia 02/05/2019 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 ([facility]) 01/08/2020 Coagulation defect, unspecified ([facility]) 02/05/2019 Cold intolerance 11/15/2023 Deficiency of other specified B group vitamins 05/16/2019 Deviated septum 11/15/2023 Dizziness and giddiness 02/05/2019 Dry mouth 11/15/2023 Dysfunction of eustachian tube 06/12/2023 Dyspnea 06/12/2023 Elevated blood pressure reading 11/15/2023 Encounter for supervision of normal , unspecified, first trimester ([facility]) 05/29/2019 Environmental allergies 11/15/2023 Fatigue 12/29/2016 First degree perineal laceration during delivery ([facility]) 01/16/2020 Frequency of micturition 02/19/2019 Genitourinary symptoms 08/19/2021 Gestational diabetes mellitus (GDM), antepartum ([facility]) 01/26/2022 H/O: hypothyroidism 11/15/2023 Hematochezia [...] anemia 01/16/2020 Irregular uterine bleeding 11/15/2023 problem ([facility]) 06/12/2023 Less than 8 weeks gestation of ([facility]) 06/05/2019 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 of 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/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 02/05/2019 Migraine without aura and without status migrainosus, not intractable 09/12/2017 Morbid obesity ([facility]) 11/15/2023 Muscle fasciculation 08/19/2021 Nasal polyps 11/15/2023 Non-smoker 11/15/2023 NEETA (obstructive sleep apnea) 11/15/2023 Other acute postprocedural pain 02/03/2019 Other general symptoms and signs 10/28/2019 Other immediate hemorrhage ([facility]) 01/16/2020 Other specified noninflammatory disorders of vagina 02/21/2019 Pain in joint 12/29/2016 Palpitations 08/26/2019 Paresthesia of bilateral legs 11/15/2023 Pelvic and perineal pain 02/01/2019 Personal history of urinary (tract) infections 01/16/2020 Pre-diabetes 11/15/2023 Primary hypercoagulable state ([facility]) 08/01/2022 Pruritus, unspecified 01/02/2020 Psychogenic hyperventilation 06/12/2023 Raised antibody titer 09/25/2017 Right lower quadrant pain 11/15/2023 Right otitis externa 11/15/2023 Salivary gland swelling 11/15/2023 Single live ([facility]) 01/15/2020 Snoring 11/15/2023 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 Exam conducted with a resident care associate present. Vitals: Estimated body mass index is 34.14 kg/m as calculated from the following: Height as of 11/19/23: 5' 6 . Weight as of this encounter: 211 lb 8 oz. BP: 124/70 Patient's last menstrual period was 07/28/2024. ASSESSMENT & PLAN ICD-10-CM 1. Second trimester ([facility]) Z34.92 POCT urinalysis dipstick manually resulted 2. 25 weeks gestation of ([facility]) Z3A.25 3. Gestational diabetes mellitus (GDM), antepartum, gestational diabetes method of control unspecified ([facility]) O24.419 metFORMIN XR (Glucophage-XR) 500 [...] to switch her Lovenox and Metformin to [facility] pharmacy. Growth ultrasound at28 weeks as well as NST and BPP at 28 weeks. Documented by Celia Keith NP on behalf of: Wilton Herrmann DO documented in this encounterShriners Hospitals for [id number] History of Present illness Narrative* Roxana Mays PA-C - 01/13/2025 10:00 AM EDT Maternal- Medicine Consultation VIDEO Patient is present at home , provider present at [facility] HISTORY OF PRESENT ILLNESS: Sanna [...] more likely to fail compared to insulin. continuous churn buttermaker data on children whose mothers took oral [...] so she can have them done at [place] - Anatomy survey with MFM -followsup scheduled [...] by e-mail to: or by fax to: [phone] Roxana Mays PA-C Maternal- Medicine Office phone: [phone] Roxana Mays PA-C 01/13/25 1031 documented in this encounterCleveland Clinic Euclid HospitalToolmeet [facility] [id number] Miscellaneous Notes* Medical Student - Mike Aquino [...] the legal medical record. documented in this encounterSalem [facility]09-16-2025 Progress note* Medical Student - [...] a part of the legal medical record. [facility]09-12-2025 Miscellaneous Notes* Telephone Encounter - [...] answered. MUKUL NOYOLA MD documented in this encounterSalem Regional Medical Center09-12-2025 Telephone encounter Note* Telephone Encounter [...] questions and concerns answered. MUKUL NOYOLA MD [facility] [id number] Miscellaneous Notes* Telephone Encounter - Jacque Pat RN - 01/07/2025 10:29 AM EDT [employer] Flat[employer] called and spoke to patient yesterday to discuss a several topics. [employer] asked if patient wanted another follow up cervical length. Patient declined. We also discussed her insulin dosage. Patient had not started her NPH insulin yet because her pharmacy did not notify her it was ready for pickup. She asked if she could start at 4 units instead of 8. She is worried because she had a bad reaction when she took Lantus previously. [employer] discussed this with Dr. Noyola and she is okay with her starting at a lower dose for now. Lastly, flex o writer operator notified patient that Dr. Noyola wanted to discuss with her wirer maintenance her Lovenox dosing. Patient stated there was some confusion if she should be on 40mg or 80mg, patient prefers to be on the lower dose. Patient is seeing a Dr. Calix from the [facility] hematology office in [place]. Notified patient that we will reach out to her wirer maintenance to discuss her dosing. documented in this encounterCleveland Clinic Euclid HospitalAnexon09-10-2025 Telephone encounter Note* Telephone Encounter - Jacque Pat RN - 01/07/2025 10:29 AM EDT [employer] called and spoke to patient yesterday to discuss a several topics. [employer] asked if patient wanted another follow up cervical length. Patient declined. We also discussed her insulin dosage. Patient had not started her NPH insulin yet because her pharmacy did not notify her it was ready for pickup. She asked if she could start at 4 units instead of 8. She is worried because she had a bad reaction when she took Lantus previously. [employer] discussed this with Dr. Noyola and she is okay with her starting at a lower dose for now. Lastly, flex o writer operator notified patient that Dr. Noyola wanted to discuss with her wirer maintenance her Lovenox dosing. Patient stated there was some confusion if she should be on 40mg or 80mg, patient prefers to be on the lower dose. Patient is seeing a Dr. Calix from the [facility] hematology office in [place]. Notified patient that we will reach out to her wirer maintenance to discuss her dosing. Vaximm09-08-2025 History of Present illness Narrative* Rosi Murray [...] Diagnosis Date Noted 32 weeks gestation of ([facility]) 11/28/2019 Abdominal pain 06/12/2023 Acute bronchitis due to infection 06/12/2023 Acute on chronic vesicular eczema of hands and feet 11/15/2023 Anemia complicating childbirth ([facility]) 01/16/2020 Anticoagulant long-term use 02/22/2020 Antiphospholipid antibody positive 09/10/2017 Antiphospholipid antibody syndrome ([facility]) 07/07/2019 Anxiety 06/12/2023 Blood pressure elevated without history of HTN 11/15/2023 BMI 37.0-37.9, adult 11/15/2023 Cerebral infarction, unspecified ([facility]) 05/16/2019 Cerebrovascular accident (CVA) due to stenosis of middle cerebral artery ([facility]) 02/22/2020 Cervicalgia 02/05/2019 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 ([facility]) 01/08/2020 Coagulation defect, unspecified ([facility]) 02/05/2019 Cold intolerance 11/15/2023 Deficiency of other specified B group vitamins 05/16/2019 Deviated septum 11/15/2023 Dizziness and giddiness 02/05/2019 Dry mouth 11/15/2023 Dysfunction of eustachian tube 06/12/2023 Dyspnea 06/12/2023 Elevated blood pressure reading 11/15/2023 Encounter for supervision of normal , unspecified, first trimester ([facility]) 05/29/2019 Environmental allergies 11/15/2023 Fatigue 12/29/2016 First degree perineal laceration during delivery ([facility]) 01/16/2020 Frequency of micturition 02/19/2019 Genitourinary symptoms 08/19/2021 Gestational diabetes mellitus (GDM), antepartum ([facility]) 01/26/2022 H/O: hypothyroidism 11/15/2023 Hematochezia [...] anemia 01/16/2020 Irregular uterine bleeding 11/15/2023 problem ([facility]) 06/12/2023 Less than 8 weeks gestation of ([facility]) 06/05/2019 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 of 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/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 02/05/2019 Migraine without aura and without status migrainosus, not intractable 09/12/2017 Morbid obesity ([facility]) 11/15/2023 Muscle fasciculation 08/19/2021 Nasal polyps 11/15/2023 Non-smoker 11/15/2023 NEETA (obstructive sleep apnea) 11/15/2023 Other acute postprocedural pain 02/03/2019 Other general symptoms and signs 10/28/2019 Other immediate hemorrhage ([facility]) 01/16/2020 Other specified noninflammatory disorders of vagina 02/21/2019 Pain in joint 12/29/2016 Palpitations 08/26/2019 Paresthesia of bilateral legs 11/15/2023 Pelvic and perineal pain 02/01/2019 Personal history of urinary (tract) infections 01/16/2020 Pre-diabetes 11/15/2023 Primary hypercoagulable state ([facility]) 08/01/2022 Pruritus, unspecified 01/02/2020 Psychogenic hyperventilation 06/12/2023 Raised antibody titer 09/25/2017 Right lower quadrant pain 11/15/2023 Right otitis externa 11/15/2023 Salivary gland swelling 11/15/2023 Single live ([facility]) 01/15/2020 Snoring 11/15/2023 Speech and [...] drainage of cyst WISDOM TOOTH EXTRACTION 2007 [place] teeth REVIEW OF SYSTEMS Review of Systems: [...] nursing note reviewed. Exam conducted with a resident care associate present. Vitals: Estimated body mass index is 33.73 kg/m as calculated from the following: Height as of 11/19/23: 5' 6 . Weight as of this encounter: 209 lb. BP: 122/74 Patient's last menstrual period was 07/28/2024. ASSESSMENT & PLAN ICD-10-CM 1. Second trimester ([facility]) Z34.92 POCT urinalysis dipstick manually resulted 2. 23 weeks gestation of ([facility]) Z3A.23 3. Thyroid disease E07.9 Echocardiogram 2D complete ECG 12 lead unit performed Echocardiogram 2D complete 4. Gestational diabetes mellitus (GDM), antepartum, gestational diabetes method of control unspecified ([facility]) O24.419 Echocardiogram 2D complete ECG 12 lead unit performed Echocardiogram 2D complete 5. Multigravida of advanced maternal age in second trimester ([facility]) O09.522 Echocardiogram 2D complete ECG [...] of: Wilton Herrmann DO documented in this encounterShriners Hospitals for [id number] History of Present illness Narrative* Jacque Pat RN - 01/05/2025 10:20 AM EDT NPH insulin prior authorization approved. Confirmed via telephone call with automated voice messaging system. Prior authorization number #[id number] documented in this encounterSalem Regional Medical Center09-04-2025 History of Present illness Narrative* Mukul Noyola MD - 01/01/2025 2:30 PM EDT Images from the original note were not included. Video Visit via Real-time Synchronous Audiovisual Provider Location: [facility] AT [address] [phone] Patient Location: Other [facility] Patient Location Door Maker: None Video Visit Consent Statement: I discussed [...] that there are some limitations compared to [id number] evaluations. We elected to proceed. [facility] Maternal- Medicine Consult Note Reason For Consult: [...] will be undergoing genetic testing through the children's literature professor. There is family history of hypospadias and [...] Antiphospholipid antibody syndrome Cerebral infarction, unspecified ([facility]) 05/16/2019 Hypothyroid Migraine without aura and without status migrainosus, not intractable 09/12/2017 Stroke ([facility]) 2015 PSHIST: Past Surgical History: Procedure Laterality [...] contrast; Future - [facility] - [place], [place]; Future 2. Antiphospholipid syndrome complicating , antepartum - Echo complete W/O contrast; Future - [facility] [place], [place]; Future 3. History of stroke 4. [...] intermittent symptoms concerning for an autoimmune condition [id number]. I recommended she sees a frame runner. Referral given. I asked her to hold [...] supposed to undergo genetic testing with her children's literature professor. After the patient left I found that [...] asymptomatic I recommend that she sees a plant safety leader and she desires referral locally. Recommendations: - increase metformin to 1500 mg at night - she is willing to try the NPH 8 units at night - to continue to send blood glucoses to [facility] to review - follow-up survey and echocardiogram [...] Mukul Noyola MD, FACOG (she/hers) Maternal- Medicine [facility] [address] [place] [address] This document was created with Nanoradio technology. Though I make every effort to review the dictation as it is transcribed, on occasion the spoken word can be misinterpreted by the technology leading to inappropriate words, phrases, or sentences. This note is addressed to the requesting provider as a consultation for clinical guidance. Specificmedical abbreviations are occasionally used and those are generally approved by the [place]?Board of?Obstetrics and?Gynecology?as well as?Elizabeth s abbreviations. The above plan of care was based solely on the diagnoses for which a consultation was requested. ?More frequent testing may be indicated based on her other medical/obstetrical conditions. The management of other or medical conditions is beyond the scope of requested consultation and will c taniaue to be followed by the primary locomotive oiler or primary care provider. Note to patient: [...] male Have you been seen here at [facility] in a previous ? yes Recent ER visits or hospitalizations? Seen in L&D for cramping about 2 weeks ago Bring blood sugar log or meter with you today? (Please bring them with you for every visit at [facility]) scanned to media tab Flu vaccine (Feb-June)? no Any concerns that you would like me to mention to the provider today? No concerns documented in this encounterCleveland Clinic Euclid HospitalCarmot Therapeutics [id number] Miscellaneous Notes* Telephone Encounter - PRISCILLA Del [...] and basics of CGM explained. Will send [employer] message with instructions on how to connect to our [facility] clinic account. Explained how to prudence notes on the Jenifer kennedy for fasting BG and meals. documented in this encounterCleveland Clinic Euclid HospitalToolmeet University [facility] [id number] Telephone encounter Note* Telephone Encounter - PRISCILLA [...] and basics of CGM explained. Will send [employer] message with instructions on how to connect to our [facility] account. Explained how to prudence notes on the Jenifer kennedy for fasting BG and meals. Vaximm08-26-2025 NoteHNO ID: [id number] Author: KATHERINE NEGRETE APRN.CLINICAL LAW PROFESSOR Service: ? Author Type: Nurse Practitioner Type: Progress Notes Filed: 12/24/2024 21:07 Note Text: NAME: Sanna Rendon CLINIC NO.: [id number] DATE OF SERVICE: December 23, 2024 ([place]) Some elements in this clinic note that [...] later in 2018. These were found in [place], [place]. I don't have access to these [...] a target-like rash shortly before presenting to [facility] in 2016 with headaches and [...] g/dL, and platelets a (more content not included)...[facility]08-26-2025 History of Present illness Narrative* Katherine Negrete APRN.CLINICAL LAW PROFESSOR - 12/23/2024 11:50 AM EDT Images from the original note were not included. NAME: Sanna Rendon CLINIC NO.: [id number] DATE OF SERVICE: December 23, 2024 ([place]) [...] later in 2018. These were found in [place], [place]. I don't have access to these [...] a target-like rash shortly before presenting to [facility] in 2016 with headaches and [...] Monge soon. When she hada stroke in [place], she had symptoms up to a month before: uncontrollable headache, BP was elevated, knee stiffness, and blurry vision. Right facial drooping and difficulty speaking [facility] She continues to take vitamins. Updated Visit, [...] on Lovenox Hgb 13.1 @ [facility] Recommended ER if persisting bleeding but she [...] and at age 69. Both lived in [place], [place] - but she was adopted. She was not able to see ID in October and will be seeing Dr. Baugh next week. Also will have her see Dr. Hamlin for her clotting disorder and make any other recommendations to optimize her treatment. Updated Visit, October 08, 2020: Telephone only Received call from pt stating she was seen in [facility] for numbness in her chest, throat, and extremities, and sob which has been worsening over the last week. We arranged a telephone visit for her toreview questions with me. Sanna Rendon is a 34 year old female seen for Hypercoagulable state and recent concerns and symptoms that required her to be seen [place] [facility]. She went to the ER with Gradual worsening of breathing after progressive tingling of fingers and legs. She currently remains very fatigued even though she is sleeping well. Now recalls that before her stroke she remembers having a bull's eye rash and was seen with severe headaches in [place], [place] - was found to have a [...] canal and was sent to [facility] [place] which was negative but non-contrasted. [...] history goes back to January 2016 in [facility] where she had persisting headaches and slurred speech followed by lower extremity weakness. This took a few months to resolve and she is back to her normal state of being but some point in time during her her next she was seen by Dr. Humera Hyde in [place] as well and was found to have [...] which included preparing to see the patient, [id number] patient care, completing clinical documentation, obtaining and/or reviewing separately obtained history, performing a medically appropriate examination, counseling and educating the pat ient/family/caregiver, ordering medications, tests, or procedures, independently interpreting results (not separately reported), and communicating results to the patient/family/caregiver. Katherine Negrete APRN.CNP Hematology and Oncology Services Provided at: [place], [place] CC: MD Wilton Day, [address] [place] [address] Humaira Gaviria MD [address] [place] [id number] MD Cosmo Kingston MD Michael Blank, MD documented in this encounterThe [facility]08-20-[facility] History of Present illness Narrative* Alisa Saba APRN-CLINICAL LAW PROFESSOR - 12/17/2024 3:30 PM EDT REASON FOR OFFICE VISIT: Video Visit via Real-time Synchronous Audiovisual Provider Location: [facility] AT [address] [id number] Patient Location: Patient's home Video Visit Consent [...] that there are some limitations compared to [id number] evaluations. The patient consented to the presence [...] TSH 1.25 10/28/2024 No results found for: [id number] No results found for: CREATININE , BUN [...] by e-mail to: or by fax to: [phone] TIME OF CONSULTATION: 45 minutes with the patient, >50% in discussion and counseling, coordination of care which was [id number], review of records and communication back to referring provider. BRENNEN Guillen 12/17/24 1619 documented in this encounterSalem [facility]08-15-2025 Miscellaneous Notes* Telephone Encounter - [...] 12/17/2024. Sanna verbalized understanding. documented in this encounterSalem [facility] Medical Center08-15-2025 Telephone encounter Note* Telephone Encounter [...] APRN 12/17/2024. Sanna verbalized understanding. [facility] [employer] Work Phone: [phone] 680-421708-15-2025 Miscellaneous Notes* Telephone Encounter - PRISCILLA Sutherland [...] tried higher fiber snacks in the evening. [employer] told her that I would relay her concerns to [facility] physician and get back to her. Obtained blood sugars for this week and will scan them into her chart. documented in this encounterSalem Regional Medical Center08-15-2025 Telephone encounter Note* Telephone Encounter [...] tried higher fiber snacks in the evening. [employer] told her that I would relay her concerns to [facility] physician and get back to her. Obtained blood sugars for this week and will scan them into her chart. [employer] Work Phone: [phone] 116-193408-14-2025 History of Present illness Narrative* Rosi Murray, [...] Diagnosis Date Noted 32 weeks gestation of ([facility]) 11/28/2019 Abdominal pain 06/12/2023 Acute bronchitis due to infection 06/12/2023 Acute on chronic vesicular eczema of hands and feet 11/15/2023 Anemia complicating childbirth ([facility]) 01/16/2020 Anticoagulant long-term use 02/22/2020 Antiphospholipid antibody positive 09/10/2017 Antiphospholipid antibody syndrome ([facility]) 07/07/2019 Anxiety 06/12/2023 Blood pressure elevated without history of HTN 11/15/2023 BMI 37.0-37.9, adult 11/15/2023 Cerebral infarction, unspecified ([facility]) 05/16/2019 Cerebrovascular accident (CVA) due to stenosis of middle cerebral artery ([facility]) 02/22/2020 Cervicalgia 02/05/2019 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 ([facility]) 01/08/2020 Coagulation defect, unspecified ([facility]) 02/05/2019 Cold intolerance 11/15/2023 Deficiency of other specified B group vitamins 05/16/2019 Deviated septum 11/15/2023 Dizziness and giddiness 02/05/2019 Dry mouth 11/15/2023 Dysfunction of eustachian tube 06/12/2023 Dyspnea 06/12/2023 Elevated blood pressure reading 11/15/2023 Encounter for supervision of normal , unspecified, first trimester ([facility]) 05/29/2019 Environmental allergies 11/15/2023 Fatigue 12/29/2016 First degree perineal laceration during delivery ([facility]) 01/16/2020 Frequency of micturition 02/19/2019 Genitourinary symptoms 08/19/2021 Gestational diabetes mellitus (GDM) affecting ([facility]) 01/26/2022 H/O: hypothyroidism 11/15/2023 Hematochezia [...] anemia 01/16/2020 Irregular uterine bleeding 11/15/2023 problem ([facility]) 06/12/2023 Less than 8 weeks gestation of ([facility]) 06/05/2019 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 of 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/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 02/05/2019 Migraine without aura and without status migrainosus, not intractable 09/12/2017 Morbid obesity ([facility]) 11/15/2023 Muscle fasciculation 08/19/2021 Nasal polyps 11/15/2023 Non-smoker 11/15/2023 NEETA (obstructive sleep apnea) 11/15/2023 Other acute postprocedural pain 02/03/2019 Other general symptoms and signs 10/28/2019 Other immediate hemorrhage ([facility]) 01/16/2020 Other specified noninflammatory disorders of vagina 02/21/2019 Pain in joint 12/29/2016 Palpitations 08/26/2019 Paresthesia of bilateral legs 11/15/2023 Pelvic and perineal pain 02/01/2019 Personal history of urinary (tract) infections 01/16/2020 Pre-diabetes 11/15/2023 Primary hypercoagulable state ([facility]) 08/01/2022 Pruritus, unspecified 01/02/2020 Psychogenic hyperventilation 06/12/2023 Raised antibody titer 09/25/2017 Right lower quadrant pain 11/15/2023 Right otitis externa 11/15/2023 Salivary gland swelling 11/15/2023 Single live ([facility]) 01/15/2020 Snoring 11/15/2023 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 Exam conducted with a resident care associate present. Vitals: Estimated body mass index is 33.41 kg/m as calculated from the following: Height as of 11/19/23: 5' 6 . Weight as of this encounter: 207 lb. BP: 120/70 Patient's last menstrual period was 07/28/2024. ASSESSMENT & PLAN ICD-10-CM 1. 19 weeks gestation of ([facility]) Z3A.19 POCT urinalysis dipstick manually resulted 2. Second trimester ([facility]) Z34.92 POCT urinalysis dipstick manually resulted 3. Thyroid disease E07.9 4. Multigravida of advanced maternal age in second trimester ([facility]) O09.522 5. Gestational diabetes mellitus (GDM), antepartum, gestational diabetes method of control unspecified ([facility]) O24.419 Patient presents today for [...] scan and Telemedicine with MFM provider in [place]. Documented by Rosi Murray LPN on behalf of: Wilton Herrmann DO documented in this encounterShriners Hospitals for [id number] Miscellaneous Notes* Telephone Encounter - Anni Abreu CMA - 12/03/2024 3:01 PM EDT Left message with patient to call our office to schedule her next appt in 2 week with an [employer]/PA. Left call back number and to press option 3 for scheduling. documented in this encounterSalem [facility] Center08-06-2025 Telephone encounter Note* Telephone Encounter - Anni Abreu CMA - 12/03/2024 3:01 PM EDT Left message with patient to call our office to schedule her next appt in 2 week with an [employer]/PA. Left call back number and to press option 3 for scheduling. [facility]08-06-20[facility] History of Present illness Narrative* Alisa Tori, VICTOR HUGO-CLINICAL LAW PROFESSOR - 12/03/2024 2:00 PM EDT REASON FOR [...] starting insulin. She is being followed at [facility] due to GDMA2. States she is [...] TSH 1.25 10/28/2024 No results found for: [id number] No results found for: CREATININE , BUN [...] by e-mail to: or by fax to: [phone] TIME OF CONSULTATION: 60 minutes with the patient, >50% in discussion and counseling, coordination of care which was [id number], review of records and communication back to referring provider. BRENNEN Guillen 12/03/24 1500 documented in this encounterCleveland Clinic Euclid HospitalToolmeet [facility] HealthAyqqee09-79-9925 History of Present illness Narrative* Rosi Murray [...] Diagnosis Date Noted 32 weeks gestation of ([facility]) 11/28/2019 Abdominal pain 06/12/2023 Acute bronchitis due to infection 06/12/2023 Acute on chronic vesicular eczema of hands and feet 11/15/2023 Anemia complicating childbirth ([facility]) 01/16/2020 Anticoagulant long-term use 02/22/2020 Antiphospholipid antibody positive 09/10/2017 Antiphospholipid antibody syndrome ([facility]) 07/07/2019 Anxiety 06/12/2023 Blood pressure elevated without history of HTN 11/15/2023 BMI 37.0-37.9, adult 11/15/2023 Cerebral infarction, unspecified ([facility]) 05/16/2019 Cerebrovascular accident (CVA) due to stenosis of middle cerebral artery ([facility]) 02/22/2020 Cervicalgia 02/05/2019 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 ([facility]) 01/08/2020 Coagulation defect, unspecified ([facility]) 02/05/2019 Cold intolerance 11/15/2023 Deficiency of other specified B group vitamins 05/16/2019 Deviated septum 11/15/2023 Dizziness and giddiness 02/05/2019 Dry mouth 11/15/2023 Dysfunction of eustachian tube 06/12/2023 Dyspnea 06/12/2023 Elevated blood pressure reading 11/15/2023 Encounter for supervision of normal , unspecified, first trimester ([facility]) 05/29/2019 Environmental allergies 11/15/2023 Fatigue 12/29/2016 First degree perineal laceration during delivery ([facility]) 01/16/2020 Frequency of micturition 02/19/2019 Genitourinary symptoms 08/19/2021 Gestational diabetes mellitus (GDM) affecting ([facility]) 01/26/2022 H/O: hypothyroidism 11/15/2023 Hematochezia [...] anemia 01/16/2020 Irregular uterine bleeding 11/15/2023 problem ([facility]) 06/12/2023 Less than 8 weeks gestation of ([facility]) 06/05/2019 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 of 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/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 02/05/2019 Migraine without aura and without status migrainosus, not intractable 09/12/2017 Morbid obesity ([facility]) 11/15/2023 Muscle fasciculation 08/19/2021 Nasal polyps 11/15/2023 Non-smoker 11/15/2023 NEETA (obstructive sleep apnea) 11/15/2023 Other acute postprocedural pain 02/03/2019 Other general symptoms and signs 10/28/2019 Other immediate hemorrhage ([facility]) 01/16/2020 Other specified noninflammatory disorders of vagina 02/21/2019 Pain in joint 12/29/2016 Palpitations 08/26/2019 Paresthesia of bilateral legs 11/15/2023 Pelvic and perineal pain 02/01/2019 Personal history of urinary (tract) infections 01/16/2020 Pre-diabetes 11/15/2023 Primary hypercoagulable state ([facility]) 08/01/2022 Pruritus, unspecified 01/02/2020 Psychogenic hyperventilation 06/12/2023 Raised antibody titer 09/25/2017 Right lower quadrant pain 11/15/2023 Right otitis externa 11/15/2023 Salivary gland swelling 11/15/2023 Single live ([facility]) 01/15/2020 Snoring 11/15/2023 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) 12/30/2019 Suspected severe acute respiratory syndrome coronavirus 2 (SARS-CoV-2) infection 06/12/2023 SVT (supraventricular tachycardia) ([facility]) 08/26/2019 Syncope and collapse 06/03/2018 [...] Date AMA (advanced maternal age) multigravida 35+ ([facility]) Anemia Antiphospholipid syndrome ([facility]) Gestational diabetes ([facility]) Heartburn Hypothyroid Stroke ([facility]) HISTORY PAST MEDICAL HISTORY SOCIAL HISTORY Past Medical History: Diagnosis Date AMA (advanced maternal age) multigravida 35+ ([facility]) Anemia Antiphospholipid syndrome ([facility]) Gestational diabetes ([facility]) Heartburn Hypothyroid Stroke ([facility]) Social History [...] drainage of cyst WISDOM TOOTH EXTRACTION 2007 [place] teeth REVIEW OF SYSTEMS Review of Systems: [...] nursing note reviewed. Exam conducted with a resident care associate present. Vitals: Estimated body mass index is 33.57 kg/m as calculated from the following: Height as of 11/19/23: 5' 6 . Weight as of this encounter: 208 lb. BP: 108/76 Patient's last menstrual period was 07/28/2024. ASSESSMENT & PLAN ICD-10-CM 1. Second trimester ([facility]) Z34.92 Alpha fetoprotein, maternal Alpha fetoprotein, maternal 2. 16 weeks gestation of ([facility]) Z3A.16 POCT urinalysis dipstick manually resulted 3. Screening, , for anatomic survey ([facility]) Z36.89 CANCELED: US OB 14+ [...] of: Wilton Herrmann DO documented in this encounterShriners Hospitals for [id number] Group counseling note* Group Note - Cindy [...] Face to face time was 100 minutes. [employer] Work Phone: [phone] 179-304207-23-2025 Miscellaneous Notes* Group Note - Cindy Miller [...] time was 100 minutes. documented in this encounterSalem Regional Medical Center07-09-2025 Telephone encounter Note* Telephone Encounter - Rachael Johnson RN - 11/05/2024 12:48 PM EDT Pt updated. She reports she is unable to take aspirin. It makes my electrolytes go out of whack. Ididn't take with my previous pregnancies and I am not comfortable taking this time either. She will continue with Lovenox, as recommended. Pt is scheduled for appt with high school english teacher, 11/19/24, [facility]. She denies further questions, needs or concerns for our care team at this time. Appt verified for RTC Rachael Johnson RN [facility]07-09-2025 Miscellaneous Notes* Telephone Encounter - Rachael Johnson RN - 11/05/2024 12:48 PM EDT Pt updated. She reports she is unable to take aspirin. It makes my electrolytes go out of whack. Ididn't take with my previous pregnancies and I am not comfortable taking this time either. She will continue with Lovenox, as recommended. Pt is scheduled for appt with high school english teacher, 11/19/24, [facility]. She denies further [...] note were not included. documented in this encounterThe Jewish Hospital07-09-2025 Telephone encounter Note * Telephone Encounter - Katherine Negrete APRN.CNP - 11/05/2024 12:29 PM EDT Spoke with Dr. Moscoso and she is to continue Lovenox 40 daily and add baby asa (81 mg) daily. Please also make sure she is following OB High risk. Labs acceptable at this time. Will monitor. Thanks, Katherine Negrete APRN.CLINICAL LAW PROFESSOR [facility] Work Phone: [phone] 421-661607-08-2025 Telephone encounter Note* Telephone Encounter - Abbie Jimenez PA-C - 11/04/2024 8:13 AM EDT Katherine saw this patient last and will be able to advise better of the plan of care. Abbie Jimenez PA-C [facility] Work Phone: 1([phone]) 720-463607-03-2025 History of Present illness Narrative* Rosi Murray [...] Diagnosis Date Noted 32 weeks gestation of ([facility]) 11/28/2019 Abdominal pain 06/12/2023 Acute bronchitis due to infection 06/12/2023 Acute on chronic vesicular eczema of hands and feet 11/15/2023 Anemia complicating childbirth ([facility]) 01/16/2020 Anticoagulant long-term use 02/22/2020 Antiphospholipid antibody positive 09/10/2017 Antiphospholipid antibody syndrome ([facility]) 07/07/2019 Anxiety 06/12/2023 Blood pressure elevated without history of HTN 11/15/2023 BMI 37.0-37.9, adult 11/15/2023 Cerebral infarction, unspecified ([facility]) 05/16/2019 Cerebrovascular accident (CVA) due to stenosis of middle cerebral artery ([facility]) 02/22/2020 Cervicalgia 02/05/2019 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 ([facility]) 01/08/2020 Coagulation defect, unspecified ([facility]) 02/05/2019 Cold intolerance 11/15/2023 Deficiency of other specified B group vitamins 05/16/2019 Deviated septum 11/15/2023 Dizziness and giddiness 02/05/2019 Dry mouth 11/15/2023 Dysfunction of eustachian tube 06/12/2023 Dyspnea 06/12/2023 Elevated blood pressure reading 11/15/2023 Encounter for supervision of normal , unspecified, first trimester ([facility]) 05/29/2019 Environmental allergies 11/15/2023 Fatigue 12/29/2016 First degree perineal laceration during delivery ([facility]) 01/16/2020 Frequency of micturition 02/19/2019 Genitourinary symptoms 08/19/2021 Gestational diabetes mellitus (GDM) affecting ([facility]) 01/26/2022 H/O: hypothyroidism 11/15/2023 Hematochezia [...] anemia 01/16/2020 Irregular uterine bleeding 11/15/2023 problem ([facility]) 06/12/2023 Less than 8 weeks gestation of ([facility]) 06/05/2019 senior living (current) use of 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/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 02/05/2019 Migraine without aura and without status migrainosus, not intractable 09/12/2017 Morbid obesity ([facility]) 11/15/2023 Muscle fasciculation 08/19/2021 Nasal polyps 11/15/2023 Non-smoker 11/15/2023 NEETA (obstructive sleep apnea) 11/15/2023 Other acute postprocedural pain 02/03/2019 Other general symptoms and signs 10/28/2019 Other immediate hemorrhage ([facility]) 01/16/2020 Other specified noninflammatory disorders of vagina 02/21/2019 Pain in joint 12/29/2016 Palpitations 08/26/2019 Paresthesia of bilateral legs 11/15/2023 Pelvic and perineal pain 02/01/2019 Personal history of urinary (tract) infections 01/16/2020 Pre-diabetes 11/15/2023 Primary hypercoagulable state ([facility]) 08/01/2022 Pruritus, unspecified 01/02/2020 Psychogenic hyperventilation 06/12/2023 Raised antibody titer 09/25/2017 Right lower quadrant pain 11/15/2023 Right otitis externa 11/15/2023 Salivary gland swelling 11/15/2023 Single live ([facility]) 01/15/2020 Snoring 11/15/2023 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) 12/30/2019 Suspected severe acute respiratory syndrome coronavirus 2 (SARS-CoV-2) infection 06/12/2023 SVT (supraventricular tachycardia) ([facility]) 08/26/2019 Syncope and collapse 06/03/2018 [...] Date AMA (advanced maternal age) multigravida 35+ ([facility]) Anemia Antiphospholipid syndrome ([facility]) Gestational diabetes ([facility]) Heartburn Hypothyroid Stroke ([facility]) HISTORY PAST MEDICAL HISTORY SOCIAL HISTORY Past Medical History: Diagnosis Date AMA (advanced maternal age) multigravida 35+ ([facility]) Anemia Antiphospholipid syndrome ([facility]) Gestational diabetes ([facility]) Heartburn Hypothyroid Stroke ([facility]) Social History Tobacco Use Smoking [...] drainage of cyst WISDOM TOOTH EXTRACTION 2007 [place] teeth REVIEW OF SYSTEMS Review of Systems: [...] nursing note reviewed. Exam conducted with a resident care associate present. Vitals: Estimated body mass index is 33.81 kg/m as calculated from the following: Height as of 11/19/23: 5' 6 . Weight as of this encounter: 209 lb 8 oz. BP: 110/76 Patient's last menstrual period was 07/28/2024. ASSESSMENT & PLAN ICD-10-CM 1. Second trimester ([facility]) Z34.92 POCT urinalysis dipstick manually resulted 2. 13 weeks gestation of ([facility]) Z3A.13 3. Thyroid disease E07.9 4. Multigravida of advanced maternal age in second trimester ([facility]) O09.522 New OB: Patient presents [...] or undercooked meat, and stay away from [facility]. Patient has been consulted regarding any further do's and don'tsof . Patient voiced understanding and all questions and concerns were answered. Patient is currently on 40 Lovenox and will be referred to [facility] for recommendations/co-management throughout . Discussed concerns in [...] of: Wilton Herrmann DO documented in this encounterShriners Hospitals for [id number] Telephone encounter Note* Telephone Encounter - Valeri Yeung RN - 10/30/2024 8:30 AM EDT Labs resulted. Please advise. Valeri Yeung RN [facility]07-01-2025 Telephone encounter Note* Telephone Encounter - Roberta Haskins - 10/28/2024 2:52 PM EDT Images from the original note were not included. [facility]07-01-2025 NoteHNO ID: [id number] Author: KATHERINE NEGRETE APRN.CLINICAL LAW PROFESSOR Service: ? Author Type: Nurse Practitioner Type: Progress Notes Filed: 10/29/2024 21:44 Note Text: NAME: Sanna Rendon CLINIC NO.: [id number] DATE OF SERVICE: October 28, 2024 ([place]) [...] later in 2018. These were found in [place], [place]. I don't have access to these [...] a target-like rash shortly before presenting to [facility] in 2016 with headaches and [...] vision changes both have (more content not included)...[facility]07-01-2025 History of Present illness Narrative* Katherine Negrete APRN.CLINICAL LAW PROFESSOR - 10/28/2024 2:33 PM EDT Images from the original note were not included. NAME: Sanna Rendon CLINIC NO.: [id number] DATE OF SERVICE: October 28, 2024 ([place]) [...] later in 2018. These were found in [place], [place]. I don't have access to these [...] a target-like rash shortly before presenting to [facility] in 2016 with headaches and [...] Monge soon. When she hada stroke in [place], she had symptoms up to a month before: uncontrollable headache, BP was elevated, knee stiffness, and blurry vision. Right facial drooping and difficulty speaking [facility] She continues to take vitamins. Updated Visit, [...] on Lovenox Hgb 13.1 @ [facility] Recommended ER if persisting bleeding but she [...] and at age 69. Both lived in [place], [place] - but she was adopted. She was not able to see ID in October and will be seeing Dr. Baugh next week. Also will have her see Dr. Hamlin for her clotting disorder and make any other recommendations to optimize her treatment. Updated Visit, October 08, 2020: Telephone only Received call from pt stating she was seen in [facility] for numbness in her chest, throat, and extremities, and sob which has been worsening over the last week. We arranged a telephone visit for her chanw questions with me. Sanna Rendon is a 34 year old female seen for Hypercoagulable state and recent concerns and symptoms that required her to be seen at [facility]. She went to the ER with Gradual worsening of breathing after progressive tingling of fingers and legs. She currently remains very fatigued even though she is sleeping well. Now recalls that before her stroke she remembers having a bull's eye rash and was seen with severe headaches in [place], [place] - was found to have a [...] canal and was sent to [facility] for MRI which was negative but non-contrasted. [...] history goes back to January 2016 in [facility] where she had persisting headaches and slurred speech followed by lower extremity weakness. This took a few months to resolve and she is back to her normal state of being but some point in time during her her next she was seen by Dr. Humera Hyde in [place] as well and was found to have [...] which included preparing to see the patient, xjxc-yr-dsqp patient care, completing clinical documentation, obtaining and/or reviewing separately obtained history, performing a medically appropriate examination, counseling and educating the pat ient/family/caregiver, ordering medications, tests, or procedures, independently interpreting results (not separately reported), and communicating results to the patient/family/caregiver. Katherine Negrete APRN.TOR Hematology and Oncology Services Provided at: [place], [place] CC: MD Chalino [facility] [address] [place] [address] Humaira Gaviria MD [address] [place] [id number] MD Cosmo Kingston MD Michael Blank, MD documented in this encounterThe [facility]06-27-[facility] Telephone encounter Note * Telephone Encounter - Kaur Dunham MA - 10/24/2024 2:14 PM EDT New orders may need placed for appt on 10/28. Kaur Dunham MA [facility]06-27-2025 Miscellaneous Notes* Telephone Encounter - Kaur Dunham MA - 10/24/2024 2:14 PM EDT New orders may need placed for appt on 10/28. Kaur Dunham MA documented in this encounterThe [facility] Hospital06-16-2025 Miscellaneous Notes* Telephone Encounter - Margo Khan RN - 10/13/2024 12:14 PM EDT Attempted to contact patient x3, call cannot be completed, cannot receive calls at this time. Unable to leave a voicemail. documented [facility] Telephone encounter Note* Telephone Encounter - Margo Khan RN - 10/13/2024 12:14 PM EDT Attempted to contact patient x3, call cannot be completed, cannot receive calls at this time. Unable to leave a voicemail. [facility]06-05-2025 History of Present illness Narrative* [...] Antiphospholipid antibody positive 09/10/2017 Antiphospholipid antibody syndrome ([facility]) 07/07/2019 Anxiety 06/12/2023 Blood pressure elevated without history of HTN 11/15/2023 BMI 37.0-37.9, adult 11/15/2023 Cerebral infarction, unspecified 05/16/2019 Cerebrovascular accident (CVA) due to stenosis of middle cerebral artery ([facility]) 02/22/2020 Cervicalgia 02/05/2019 Chromosomal abnormality [...] Less than 8 weeks gestation of 06/05/2019 senior living (current) use of 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/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 02/05/2019 Migraine without aura and without status migrainosus, not intractable ([facility]) 09/12/2017 Morbid obesity ([facility]) 11/15/2023 Muscle fasciculation 08/19/2021 Nasal [...] infections 01/16/2020 Pre-diabetes 11/15/2023 Primary hypercoagulable state ([facility]) 08/01/2022 Pruritus, unspecified 01/02/2020 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[facility]) 06/12/2023 Raised antibody titer 09/25/2017 Right lower quadrant pain 11/15/2023 Right otitis externa 11/15/2023 Salivary gland swelling 11/15/2023 Single live 01/15/2020 Snoring 11/15/2023 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) 12/30/2019 Suspected severe acute respiratory syndrome coronavirus 2 (SARS-CoV-2) infection 06/12/2023 SVT (supraventricular tachycardia) ([facility]) 08/26/2019 Syncope and collapse 06/03/2018 [...] (CMS/HCC) Gestational diabetes Heartburn Hypothyroid (CMS/HCC) Stroke (CMS/[facility]) Family History Problem Relation Name [...] drainage of cyst WISDOM TOOTH EXTRACTION 2007 [place] teeth Allergies Allergen Reactions Ciprofloxacin GI intolerance [...] TSH Nurse Note: Patient desires to have [place] [employer] to one. Pt was advised to [...] or undercooked meat, and stay away from [facility]. Patient has also been advised to [...] by: Lala Hess MA documented in this encounterShriners Hospitals for [id number] NotePatient Education Infectious Disease Upper Respiratory Infection, [...] to help relieve symptoms, such as: ??? Cxtx-zlq-wmjccfg cold medicines. ??? Cough suppressants. Coughing is [...] other clear broths. General instructions ??? 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 ??? Avoid touching your mouth, face, eyes, [...] neck. ? (more content not included)...[facility]05-07-2025 Miscellaneous Notes* Telephone Encounter - [...] advise Rachael Johnson RN documented in this encounterThe [facility] Hospital05-07-2025 Telephone encounter Note * Telephone Encounter - Rachael Johnson RN - 09/03/2024 1:25 PM EDT Pt notified and appt for September. She denies any further questions, needs or concerns at thistime. Rachael Johnson RN [facility]05-07-2025 Telephone encounter Note* Telephone Encounter - Kristofer Calix MD - 09/03/2024 12:51 PM EDT No change in meds. [facility]05-06-2025 Telephone encounter Note* Telephone Encounter - Rachael Johnson RN - 09/02/2024 9:37 AM EDT Pt left a voicemail to inform she is approximately 5 weeks . She is asking any recommendations on med changes. Pt missed today's appt. Called and left VM to please call and schedule missed follow up MUNIRA. Fely: Please advise Rachael Johnson RN [facility]04-29-2025 Telephone encounter Note* Telephone Encounter - Serina Dawson MA - 08/26/2024 3:41 PM EDT Patient has an appt on 08/27/24. Would you like labs, if so place orders. Serina Dawson MA [facility]04-29-2025 Miscellaneous Notes* Telephone Encounter - Serina Horton MA - 08/26/2024 3:41 PM EDT Patient has an appt on 08/27/24. Would you like labs, if so place orders. Serina Dawson MA documented in this encounterThe [facility] Hospital04-08-2025 Evaluation + Plan note Future Scheduled Tests Laboratory* HgbA1c 08/05/24 * HgbA1c 11/04/24 Radiology* CT Soft Tissue Neck w/ Contrast 11/12/23 [facility] 03-27-2025 History of Present illness Narrative* Rosi Spitler, CHEMICAL RESEARCH TECHNICIAN - 07/24/2024 11:50 AM EDT Reason for [...] Antiphospholipid antibody positive 09/10/2017 Antiphospholipid antibody syndrome ([facility]/H[facility]) 07/07/2019 Anxiety 06/12/2023 Blood pressure elevated without history of HTN 11/15/2023 BMI 37.0-37.9, adult 11/15/2023 Cerebral infarction, unspecified ([facility]/HCC) 05/16/2019 Cerebrovascular accident (CVA) due to stenosis of middle cerebral artery ([facility]) 02/22/2020 Cervicalgia 02/05/2019 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 Coagulation defect, unspecified ([facility]CC) 02/05/2019 Cold intolerance 11/15/2023 Deficiency of other [...] Less than 8 weeks gestation of 06/05/2019 senior living (current) use of 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/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 02/05/2019 Migraine without aura and without status migrainosus, not intractable ([facility]) 09/12/2017 Morbid obesity (CMS/[facility]) 11/15/2023 Muscle fasciculation 08/19/2021 Nasal [...] 2 (SARS-CoV-2) infection 06/12/2023 SVT (supraventricular tachycardia) ([facility]/HCC) 08/26/2019 Syncope and collapse 06/03/2018 Other bacterial [...] drainage of cyst WISDOM TOOTH EXTRACTION 2007 [place] teeth REVIEW OF SYSTEMS Review of Systems: [...] nursing note reviewed. Exam conducted with a resident care associate present. Vitals: Estimated body mass index is [...] of: Wilton Herrmann DO documented in this encounterShriners Hospitals for [id number] NotePatient Education Emergency Medicine Bradycardia, Adult Bradycardia is a jqwjns-aiog-amwqmt heartbeat. A normal resting heart rate for [...] provider. ??? Follow a heart-healthy diet. A cnc specialist (dietitian) can help educate you about [...] liquor (44 mL). General instructions ??? Take tlml-kjy-rlfiuij and prescription medicines only as told by [...] (palpitations). ??? (more content not included)...[facility]03-03-2025 Hospital Discharge instructions Patient Education [...] Follow these instructions at home: Medicines Give odrs-phl-tetyjkt and prescription medicines only as told by [...] find more information PANDAS Network: pandasnetwork.org National [place] of Mental Health: [facility] [place] health services.nih.gov Contact a health care provider if: Your [...] the National Suicide Prevention Lifeline at or 445. This is open 24 hours a day. Text the Crisis Text Line at 997469. Summary Pediatric autoimmune neuropsychiatric disorders associated with [...] provider. Document Revised: 01/09/2022 Document Reviewed: 01/09/2022 [employer] Patient Education 2023 for[MD]. 06/30/2024 09:20:50 Common Variable Immunodeficiency Common Variable [...] Follow these instructions at home: Medicines Take jgnh-uwn-mneqcqv and prescription medicines only as told by [...] disease. Where to find more information National [place] of Allergy and Infectious Disease: www.niaid.nih.gov Contact [...] risk for frequent or unusual infections. Take yudp-uuj-qhrwcxz and prescription medicines only as told by [...] provider. Document Revised: 11/18/2021 Document Reviewed: 11/18/2021 [employer] Patient Education 2023 for[MD]. 06/30/2024 09:18:06 DASH Eating Plan DASH Eating [...] Dairy Whole or 2% milk, cream, and ysjq-tgg-yiya. Whole or full-fat cream cheese. Whole-fat or [...] more information National Heart, Lung, and Blood [place] (NHLBI): nhlbi.nih.gov [place] Heart Association (AHA): heart.org Academy of Nutrition and Dietetics: eatright.org National Kidney Foundation (NKF): kidney.org This information is not intended to replace advice given to you by your health care provider. Make sure you discuss any questions you have with your health care provider. Document Revised: 05/03/2023 Document Reviewed: 05/03/2023 Elsevier Patient Education 2023 [employer] Follow Up Care 06/25/2024 13:53:59 With:PRAVEEN RESENDEZ FAAFP, CHRIS Perez, PED Address: [place] [address]- When:Within 2 Month(s) [facility] 03-03-2025 NotePatient Education [...] these instructions at home: Medicines ??? Take digv-pwj-saermvb and prescription medicines only as told by [...] Where to find more information ??? National [place] of Allergy and Infectious Disease: www.niaid.nih.gov Contact a health care provider if: ??? You have a fever. ??? You have any symptoms of infection such as chills, worsening cough, or severe earache. ??? You make high-pitched whistling sounds when you breathe, most often when you breathe out (wheeze). 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 Coagulation defect, unspecified ([facility]) 02/05/2019 Cold intolerance 11/15/2023 Deficiency [...] Less than 8 weeks gestation of 06/05/2019 senior living (current) use of 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/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 02/05/2019 Migraine without aura and without status migrainosus, not intractable ([facility]) 09/12/2017 Morbid obesity ([facility]) 11/15/2023 Muscle fasciculation 08/19/2021 Nasal [...] infections 01/16/2020 Pre-diabetes 11/15/2023 Primary hypercoagulable state ([facility]) 08/01/2022 Pruritus, unspecified 01/02/2020 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[facility]) 06/12/2023 Raised antibody titer 09/25/2017 Right lower quadrant pain 11/15/2023 Right otitis externa 11/15/2023 Salivary gland swelling 11/15/2023 Single live 01/15/2020 Snoring 11/15/2023 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) 12/30/2019 Suspected severe acute respiratory syndrome coronavirus 2 (SARS-CoV-2) infection 06/12/2023 SVT (supraventricular tachycardia) ([facility]) 08/26/2019 Syncope and collapse 06/03/2018 Other bacterial infections of unspecified site 06/27/2019 Thrombocytopenia, unspecified ([facility]) 11/20/2019 Hypoglycemia 06/12/2023 Unspecified condition associated with female genital organs and menstrual cycle 05/09/2019 Unspecified ovarian cyst, right side 02/06/2019 Urinary tract infection 10/16/2019 Referred otalgia of right ear 11/19/2023 LPRD (laryngopharyngeal reflux disease) 11/19/2023 Resolved Ambulatory Problems Diagnosis Date Noted No Resolved Ambulatory Problems Past Medical History: Diagnosis Date AMA (advanced maternal age) multigravida 35+ Anemia Antiphospholipid syndrome ([facility]/HCC) Gestational diabetes Heartburn Hypothyroid ([facility]) Stroke ([facility]) HISTORY PAST MEDICAL HISTORY SOCIAL HISTORY Past Medical History: Diagnosis Date AMA (advanced maternal age) multigravida 35+ Anemia Antiphospholipid syndrome ([facility]CC) Gestational diabetes Heartburn Hypothyroid ([facility]) Stroke ([facility]) Social History Tobacco Use Smoking [...] drainage of cyst WISDOM TOOTH EXTRACTION 2007 [place] teeth REVIEW OF SYSTEMS Review of Systems: [...] nursing note reviewed. Exam conducted with a resident care associate present. Vitals: Estimated body mass index is [...] of: Wilton Herrmann DO documented in this encounterShriners Hospitals for [id number] Hospital Discharge instructions Patient Education 06/09/2024 14:23:47 [...] Do not chew gum. General instructions Take nage-nov-sayuduo and prescription medicines only as told by [...] important. Where to find more information National [place] of Dental and Craniofacial Research: www.nidcr.nih.gov Contact [...] provider. Document Revised: 11/27/2021 Document Reviewed: 11/27/2021 [employer]2 Patient Education 2023 for[MD]. Follow Up Care 06/06/2024 11:26:13 With:PRAVEEN RESENDEZ FAAFP, Penelope Tony, CHRIS, PED Address: [address], [place] [address]- When:Within 6 Month(s) [facility] 02-10-2025 NotePatient Education [...] not chew gum. General instructions ??? Take ibrr-rvq-letkehd and prescription medicines only as told by [...] Where to find more information ??? National [place] of Dental and Craniofacial Research: www.nidcr.nih.gov Contact [...] provider. Document Revised: 11/27/2021 Document Reviewed: 11/27/2021 [employer]2 Patient Education ? 2023 for[MD].[facility] 06-02-2024 History of Present illness [...] Antiphospholipid antibody positive 09/10/2017 Antiphospholipid antibody syndrome ([facility]) 07/07/2019 Anxiety 06/12/2023 Blood pressure elevated without history of HTN 11/15/2023 BMI 37.0-37.9, adult 11/15/2023 Cerebral infarction, unspecified ([facility]) 05/16/2019 Cerebrovascular accident (CVA) due to stenosis of middle cerebral artery ([facility]) 02/22/2020 Cervicalgia 02/05/2019 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 Coagulation defect, unspecified ([facility]) 02/05/2019 Cold intolerance 11/15/2023 Deficiency [...] Less than 8 weeks gestation of 06/05/2019 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 of 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/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 02/05/2019 Migraine without aura and without status migrainosus, not intractable ([facility]) 09/12/2017 Morbid obesity ([facility]) 11/15/2023 Muscle fasciculation 08/19/2021 Nasal [...] infections 01/16/2020 Pre-diabetes 11/15/2023 Primary hypercoagulable state ([facility]) 08/01/2022 Pruritus, unspecified 01/02/2020 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[facility]) 06/12/2023 Raised antibody titer 09/25/2017 Right lower quadrant pain 11/15/2023 Right otitis externa 11/15/2023 Salivary gland swelling 11/15/2023 Single live 01/15/2020 Snoring 11/15/2023 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) 12/30/2019 Suspected severe acute respiratory syndrome coronavirus 2 (SARS-CoV-2) infection 06/12/2023 SVT (supraventricular tachycardia) ([facility]) 08/26/2019 Syncope and collapse 06/03/2018 Other bacterial infections of unspecified site 06/27/2019 Thrombocytopenia, unspecified ([facility]) 11/20/2019 Hypoglycemia 06/12/2023 Unspecified condition [...] drainage of cyst WISDOM TOOTH EXTRACTION 2007 [place] teeth REVIEW OF SYSTEMS Review of Systems: [...] nursing note reviewed. Exam conducted with a resident care associate present. Vitals: Estimated body mass index is [...] recent HCG level drawn at [facility] [place] lab value was 6. Documented by Renate Vegas LPN on behalf of: Wilton Herrmann DO documented in this encounterShriners Hospitals for [id number] Telephone encounter Note* Telephone Encounter - Taylor Escudero - 05/28/2024 1:45 PM EST Triage to call with iron results [facility]01-29-2025 Miscellaneous Notes* Telephone Encounter - Taylor Escudero - 05/28/2024 1:45 PM EST Triage to call with iron results documented in this encounterThe Jewish Hospital01-29-2025 Instructions* Patient Instructions* Nathaly Florence - 05/28/2024 1:44 PM EST Triage to call iron results Continue Lovenox - patient prefers 40 mg (rather than rec 80mg) Encouraged her to reconsider Take B12 supplement in the form of a sublingual tablet RTC in 3 months Labs same day or 2-7 days prior documented in this encounterThe Jewish Hospital01-29-2025 History of Present illness Narrative* Kristofer Calix MD - 05/28/2024 1:00 PM EST Images from the original note were not included. NAME: Sanna Rendon CLINIC NO.: [id number] DATE OF SERVICE: May 28, 2024 (Levon) [...] later in 2018. These were found in [place], [place]. I don't have access to these [...] a target-like rash shortly before presenting to [facility] in 2015 with headaches and [...] Monge soon. When she hada stroke in [place], she had symptoms up to a month before: uncontrollable headache, BP was elevated, knee stiffness, and blurry vision. Right facial drooping and difficulty speaking [facility] She continues to take vitamins. Updated Visit, [...] on Lovenox Hgb 13.1 @ [facility] Recommended ER if persisting bleeding but she [...] and at age 69. Both lived in [place], [place] - but she was adopted. She was not able to see ID in October and will be seeing Dr. Baugh next week. Also will have her see Dr. Hamlin for her clotting disorder and make any other recommendations to optimize her treatment. Updated Visit, October 08, 2020: Telephone only Received call from pt stating she was seen in [facility] for numbness in her chest, throat, and extremities, and sob which has been worsening over the last week. We arranged a telephone visit for her toreview questions with me. Sanna Rendon is a 34 year old female seen for Hypercoagulable state and recent concerns and symptoms that required her to be seen at [facility]. She went to the ER with Gradual worsening of breathing after progressive tingling of fingers and legs. She currently remains very fatigued even though she is sleeping well. Now recalls that before her stroke she remembers having a bull's eye rash and was seen with severe headaches in [place], [place] - was found to have a [...] canal and was sent to [facility] for MRI which was negative but non-contrasted. [...] history goes back to January 2016 in [facility] where she had persisting headaches and slurred speech followed by lower extremity weakness. This took a few months to resolve and she is back to her normal state of being but some point in time during her her next she was seen by Dr. Humera Hyde in [place] as well and was found to have [...] which included preparing to see the patient, reox-xo-ognl patient care, completing clinical documentation, performing a medically appropriate examination, counseling and educating the patient/family/caregiver, ordering medications, tests, or p rocedures, independently interpreting results (not separately reported), communicating results to the patient/family/caregiver, and care coordination (not separately reported). Kristofer Calix MD, CPE Hematology and Oncology Services Provided at: [place], [place] Scribe Attestation: This note was scribed [...] under my direction. CC: MD Wilton Day, [address] [place] [address] Humaira Gaviria MD [address] [place] [address] [place] [address] MD Cosmo Kingston MD Michael Blank, MD documented in this encounterThe Jewish Hospital01-29-2025 NoteHNO ID: [id number] Author: KRISTOFER CALIX MD Service: ? Author Type: Physician Type: Progress Notes Filed: 05/29/2024 09:13 Note Text: NAME: Sanna Rendon CLINIC NO.: [id number] DATE OF SERVICE: May 28, 2024 (Levon) [...] later in 2018. These were found in [place], [place]. I don't have access to these [...] a target-like rash shortly before presenting to [facility] in 2016 with headaches and [...] soon. When she had a stroke in [place], she had symptoms up to a month [...] breast feeding. Updated Visit, (more content not included)...[facility] 05-14-2024 Telephone encounter Note* Telephone Encounter - Rachael Johnson RN - 05/14/2024 10:15 AM EST Pt called to inform she had a miscarriage, Sunday (05/10/24) Asking if any additional blood work was needed from out standpoint. Pt aware we will be checking her CBC for any signs of anemia and her iron studies for deficiency. She is aware if her litigation partner or PCP request any additional testing, we can certainly draw with her appt 05/21 (will just need to fax orders). She denies any further questions needs or concerns at this time. MARSHA Rushk: YANET [facility]01-15-2025 Miscellaneous Notes* Telephone Encounter - Rachael Johnson RN - 05/14/2024 10:15 AM EST Pt called to inform she had a miscarriage, Sunday (05/10/24) Asking if any additional blood work was needed from out standpoint. Pt aware we will be checking her CBC for any signs of anemia and her iron studies for deficiency. She is aware if her litigation partner or PCP request any additional testing, we can certainly draw with her appt 05/21 (will just need to fax orders). She denies any further questions needs or concerns at this time. MARSHA Rushk: YANET documented in [facility]The [facility] Telephone encounter Note * Telephone Encounter [...] thinnersat follow up appointment. PVU--Rosi Presley LPN [facility] [id number] Miscellaneous Notes* Telephone Encounter - Rosi Murray [...] appointment. 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 of 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/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 02/05/2019 Migraine without aura and without status migrainosus, not intractable ([facility]) 09/12/2017 Morbid obesity ([facility]) 11/15/2023 Muscle fasciculation 08/19/2021 Nasal [...] infections 01/16/2020 Pre-diabetes 11/15/2023 Primary hypercoagulable state ([facility]) 08/01/2022 Pruritus, unspecified 01/02/2020 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[facility]) 06/12/2023 Raised antibody titer 09/25/2017 Right lower quadrant pain 11/15/2023 Right otitis externa 11/15/2023 Salivary gland swelling 11/15/2023 Single live 01/15/2020 Snoring 11/15/2023 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) 12/30/2019 Suspected severe acute respiratory syndrome coronavirus 2 (SARS-CoV-2) infection 06/12/2023 SVT (supraventricular tachycardia) ([facility]) 08/26/2019 Syncope and collapse 06/03/2018 Other bacterial infections of unspecified site 06/27/2019 Thrombocytopenia, unspecified ([facility]) 11/20/2019 Hypoglycemia 06/12/2023 Unspecified condition associated with female genital organs and menstrual cycle 05/09/2019 Unspecified ovarian cyst, right side 02/06/2019 Urinary tract infection 10/16/2019 Referred otalgia of right ear 11/19/2023 LPRD (laryngopharyngeal reflux disease) 11/19/2023 Resolved Ambulatory Problems Diagnosis Date Noted No Resolved Ambulatory Problems Past Medical History: Diagnosis Date AMA (advanced maternal age) multigravida 35+ Anemia Antiphospholipid syndrome ([facility]) Gestational diabetes Heartburn Hypothyroid ([facility]) Stroke ([facility]) HISTORY PAST MEDICAL HISTORY SOCIAL HISTORY Past Medical History: Diagnosis Date AMA (advanced maternal age) multigravida 35+ Anemia Antiphospholipid syndrome ([facility]) Gestational diabetes Heartburn Hypothyroid ([facility]) Stroke ([facility]) Social History Tobacco Use Smoking [...] drainage of cyst WISDOM TOOTH EXTRACTION 2007 [place] teeth REVIEW OF SYSTEMS Review of Systems: [...] nursing note reviewed. Exam conducted with a resident care associate present. Vitals: Estimated body mass index is [...] urinalysis dipstick manually resulted documented in this encounterShriners Hospitals for [id number] History of Present illness Narrative* Ariane Joseph [...] Antiphospholipid antibody positive 09/10/2017 Antiphospholipid antibody syndrome ([facility]) 07/07/2019 Anxiety 06/12/2023 Blood pressure elevated without history of HTN 11/15/2023 BMI 37.0-37.9, adult 11/15/2023 Cerebral infarction, unspecified ([facility]) 05/16/2019 Cerebrovascular accident (CVA) due to stenosis of middle cerebral artery ([facility]) 02/22/2020 Cervicalgia 02/05/2019 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 Coagulation defect, unspecified ([facility]) 02/05/2019 Cold intolerance 11/15/2023 Deficiency [...] Less than 8 weeks gestation of 06/05/2019 senior living (current) use of 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/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 02/05/2019 Migraine without aura and without status migrainosus, not intractable ([facility]) 09/12/2017 Morbid obesity ([facility]) 11/15/2023 Muscle fasciculation 08/19/2021 Nasal [...] infections 01/16/2020 Pre-diabetes 11/15/2023 Primary hypercoagulable state ([facility]) 08/01/2022 Pruritus, unspecified 01/02/2020 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[facility]) 06/12/2023 Raised antibody titer 09/25/2017 Right lower quadrant pain 11/15/2023 Right otitis externa 11/15/2023 Salivary gland swelling 11/15/2023 Single live 01/15/2020 Snoring 11/15/2023 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) 12/30/2019 Suspected severe acute respiratory syndrome coronavirus 2 (SARS-CoV-2) infection 06/12/2023 SVT (supraventricular tachycardia) ([facility]) 08/26/2019 Syncope and collapse 06/03/2018 Other bacterial infections of unspecified site 06/27/2019 Thrombocytopenia, unspecified ([facility]) 11/20/2019 Hypoglycemia 06/12/2023 Unspecified condition associated with female genital organs and menstrual cycle 05/09/2019 Unspecified ovarian cyst, right side 02/06/2019 Urinary tract infection 10/16/2019 Referred otalgia of right ear 11/19/2023 LPRD (laryngopharyngeal reflux disease) 11/19/2023 Resolved Ambulatory Problems Diagnosis Date Noted No Resolved Ambulatory Problems Past Medical History: Diagnosis Date AMA (advanced maternal age) multigravida 35+ Anemia Antiphospholipid syndrome ([facility]) Gestational diabetes Heartburn Hypothyroid ([facility]) Stroke ([facility]) Family History Problem Relation Name [...] drainage of cyst WISDOM TOOTH EXTRACTION 2007 [place] teeth Allergies Allergen Reactions Ciprofloxacin GI intolerance [...] or undercooked meat, and stay away from [facility]. Patient has also been advised to [...] by: Ariane Joseph LPN documented in this encounterShriners Hospitals for [id number] Telephone encounter Note* Telephone Encounter - Rachael Johnson RN - 02/28/2024 8:21 AM EDT Pt aware and agreeable to plan of care. Pt denies any further questions, needs or concerns at this time. Appt verified for lab/follow up Rachael Johnson RN [facility] Miscellaneous Notes* Telephone Encounter - Rachael [...] advise Rachael Johnson RN documented in this encounterThe [facility] Hospital10-30-2024 Telephone encounter Note * Telephone Encounter - Kristofer Calix MD - 02/27/2024 4:36 PM EDT She can take the iron with prenatals. We should March labs as scheduled. [facility] Telephone encounter Note* Telephone Encounter - Rachael Johnson RN - 02/27/2024 9:41 AM EDT Pt 4 weeks and inquiring if she should have March's lab work completed now or wait until scheduled appt. Pt last labs completed 01/02/24. Pt also would like to know if it is okay to take with iron? Fely: Please advise Rachael Johnson RN [facility]10-08[facility] Hospital Discharge instructions Patient Education 02/05/2024 [...] condition. 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 Avoid contact with people who have cold [...] it is easier to cough up. Take bgem-yik-idupzmy and prescription medicines only as told by [...] provider. Document Revised: 07/27/2022 Document Reviewed: 08/17/2021 [employer] Patient Education 2023 for[MD]. Follow Up Care 02/04/2024 08:47:42 With:PRAVEEN RESENDEZ FAAFP, CHRIS Perez, PED Address: [address] [place] [address], [facility] [place] [phone]- When:Within 3 Month(s) [facility] 10-08-2024 NotePatient Education [...] Follow these instructions at home: ? 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 ? Avoid contact with people who have [...] is easier to cough up. ? Take ttmw-bbd-suscdxw and (more content not included)...[facility]10-05-2024 Hospital Discharge instructions Follow Up Care 02/02/2024 11:19:56 With:Anni Bernstein MD, [facility], MED Address: [address] [place] [phone]- [phone] When: only if needed [facility] 09-09-2024 Miscellaneous Notes* Telephone Encounter [...] FE results. Thank you documented in this encounterThe [facility] Hospital09-09-2024 Telephone encounter Note * Telephone Encounter - Valeri Yeung RN - 01/07/2024 8:29 AM EDT No need for IV iron per CC'd chart from Dr. Calix. Attempt to call pt to notify. Left detailed message on, along with call back number on voicemail. Valeri Yeung RN [facility]09-04-[facility] Telephone encounter Note* Telephone Encounter - Marleen Mcdonald - 01/02/2024 2:[address] Luna is requesting Triage to call Sanna with her FE results. Thank you [facility]09-04-2024 Instructions* Patient Instructions* Nathaly Florence - 01/02/2024 2:08 PM EDT Triage to call iron results Continue Lovenox - patient prefers 40 mg (rather than rec 80mg) Encouraged her to reconsider Take B12 supplement in the form of a sublingual tablet RTC in 3 months Labs same day Vitamin D, TSH, Calcium with CMP documented in this encounterThe [facility] Hospital09-04-2024 Nurse Note* Serina Horton MA - [...] MRI but was negative. Serina Dawson MA [facility]09-04-[facility] Nurse Note* Serina Dawson MA - [...] negative. Serina Dawson MA documented in this encounterThe [facility] Hospital09-04-2024 History of Present illness Narrative* Kristofer Calix MD - 01/02/2024 1:45 PM EDT Images from the original note were not included. NAME: Sanna Rendon CLINIC NO.: [id number] DATE OF SERVICE: January 02, 2024 ([place]) [...] later in 2018. These were found in [place], [place]. I don't have access to these [...] a target-like rash shortly before presenting to [facility] in 2016 with headaches and [...] Monge soon. When she hada stroke in [place], she had symptoms up to a month before: uncontrollable headache, BP was elevated, knee stiffness, and blurry vision. Right facial drooping and difficulty speaking [facility] She continues to take vitamins. Updated Visit, [...] on Lovenox Hgb 13.1 [place] [facility] [place] ER if persisting bleeding but she [...] and at age 69. Both lived in [facility] but she was adopted. She was not able to see ID in October and will be seeing Dr. Baugh next week. Also will have her see Dr. Hamlin for her clotting disorder and make any other recommendations to optimize her treatment. Updated Visit, October 08, 2020: Telephone only Received call from pt stating she was seen in [facility] [place] for numbness in her chest, throat, and extremities, and sob which has been worsening over the last week. We arranged a telephone visit for her toreview questions with me. Sanna Rendon is a 34 year old female seen for Hypercoagulable state and recent concerns and symptoms that required her to be seen at [facility]. She went to the ER with Gradual worsening of breathing after progressive tingling of fingers and legs. She currently remains very fatigued even though she is sleeping well. Now recalls that before her stroke she remembers having a bull's eye rash and was seen with severe headaches in [facility] was found to have a stroke [...] canal and was sent to [facility] for MRI which was negative but non-contrasted. [...] history goes back to January 2016 in [facility] where she had persisting headaches and slurred speech followed by lower extremity weakness. This took a few months to resolve and she is back to her normal state of being but some point in time during her her next she was seen by Dr. Humera Hyde in [place] as well and was found to have [...] which included preparing to see the patient, xdbo-jd-enno patient care, completing clinical documentation, performing a medically appropriate examination, counseling and educating the patient/family/caregiver, ordering medications, tests, or p rocedures, independently interpreting results (not separately reported), communicating results to the patient/family/caregiver, and care coordination (not separately reported). Kristofer Calix MD, CPE Hematology [facility] Oncology Services Provided at: [facility] [place] [facility] [place], [place] Scribe Attestation: This note was scribed [...] under my direction. CC: MD Wilton Day, [address] [place] [address] Humaira Gaviria MD [address] [place] [id number] MD Cosmo Kingston MD Michael Blank, MD documented in this encounterThe [facility] Hospital08-19-2024 Telephone encounter Note * Telephone Encounter - Rachael Johnson RN - 12/17/2023 12:57 PM EDT Pt updated and will follow up with PCP. Denies further questions, needs or concerns at this time for our provider. Rachale Johnson RN [facility]08-19-2024 Miscellaneous Notes* Telephone Encounter - Rachael [...] to IV Iron 11/29/23? documented in this encounterThe [facility] Hospital08-19-2024 Telephone encounter Note * Telephone Encounter - Kristofer Calix MD - 12/17/2023 12:52 PM EDT No - sounds like she has some infectious process going on - would rec PCP. [facility] Telephone encounter Note* Telephone Encounter - [...] possible delayed reaction to IV Iron 11/29/23? [facility]-01[facility] History of Present illness Narrative* Becki Gutierrez RN - 11/29/2023 2:01 PM EDT Y Y documented in this encounterThe [facility] Hospital08-01-2024 Telephone encounter Note * Telephone Encounter - Rachael Johnson RN - 11/29/2023 12:45 PM EDT MARSHA Connell, treatment aware of changes. [facility] Miscellaneous Notes* Telephone Encounter - Rachael [...] a different iron formulation. documented in this encounterThe [facility] Hospital08-01-2024 Telephone encounter Note * Telephone Encounter - Rachael Johnson RN - 11/29/2023 12:41 PM EDT Spoke with pt. She will obtain Pepcid OTC from our retail pharmacy on arrival to take (1) 20 mg tablet. She is aware and agreeable to IV steroid for infusion as well. Rachael Johnson RN [facility]08-01-[facility] Telephone encounter Note* Telephone Encounter - Raissa Aly RPh - 11/29/2023 12:40 PM EDT A one time dose of dexamethasone is safe when . I added 8mg to the plan for your review. Please adjust dose if necessary. Thanks, Raissa Aly RPh [facility] Work Phone: [phone] Telephone encounter Note* Telephone Encounter - Raissa Aly RPh - 11/29/2023 12:34 PM EDT Famotidine is safe when . Do we want to administer the venofer slower? What rate? Thanks, Raissa Aly [facility]-01-[facility] Telephone encounter Note* Telephone Encounter - Rachael Johnson RN - 11/29/2023 11:56 AM EDT Called and discussed with pt. She is and cannot take Benadryl. She is reluctant to take Pepcid. Attempted to call retail, infusion pharmacy and [facility], no answer, to ask safety of pepcid in . Pharm/Fely: please advise Rachael Johnson RN [facility]08-01-[facility] Telephone encounter Note* Telephone Encounter - [...] have to choose a different iron formulation. [facility]07-18[facility] History of Present illness Narrative* Alison Linares RN - 11/15/2023 1:42 PM EDT Pt reports having nausea and lightheadedness this morning. She has seen her pcp regarding these symptoms and is being worked up to figure out the cause. documented in this encounterThe [facility] Hospital07-18-2024 Telephone encounter Note * Telephone Encounter - Evelyn Sanabria - 11/15/2023 9:19 AM EDT 1st report of treatment-Non oncology regimen (Venofer) Patient holds Medicaid coverage and there isno available FA at this time. [facility]07-18-2024 Miscellaneous Notes* Telephone Encounter - Domo Cat Evelyn Radha - 11/15/2023 9:19 AM EDT 1st report of treatment-Non oncology regimen (Venofer) Patient holds Medicaid coverage and there isno available FA at this time. documented in this encounterThe [facility] Hospital07-12-2024 Hospital Discharge instructions Patient Education 11/09/2023 [...] your hypoglycemia. Where to find more information [place] [employer] Association: www.diabetes.org National [place] of Diabetes and Digestive and Kidney Diseases: [...] provider. Document Revised: 03/17/2021 Document Reviewed: 03/17/2021 [employer] Patient Education 2022 for[MD]. 11/09/2023 15:56:06 Prediabetes Prediabetes Prediabetes is when [...] hard liquor (44 mL). General instructions Take lnjp-wrv-nnpjqbn and prescription medicines only as told by [...] is important. Where to find more information [place] [employer] Association: www.diabetes.org Academy of Nutrition and Dietetics: www.eatright.org [place] Heart Association: www.heart.org Contact a health care [...] provider. Document Revised: 07/15/2020 Document Reviewed: 07/15/2020 [employer] Patient Education 2022 for[MD]. 11/09/2023 15:56:02 Palpitations Palpitations Palpitations are feelings [...] ask your health careprovider. General instructions Take pedg-jee-xudfyka and prescription medicines only as told by [...] provider. Document Revised: 09/07/2021 Document Reviewed: 09/07/2021 [employer] Patient Education 2022 for[MD]. 11/09/2023 15:55:58 Fatigue Fatigue If you have [...] Follow these instructions at home: Medicines Take rtlq-jsp-sdnuoxu and prescription medicines only as told by [...] the National Suicide Prevention Lifeline at or 467. This is open 24 hours a day. Text the Crisis Text Line at 226668. Summary If you have fatigue, you feel [...] Document Reviewed: 02/06/2022 Elsevier Patient Education 2022 [employer] Follow Up Care 11/08/2023 11:31:43 With:PRAVEEN RESENDEZ FAAFP, Penelope Tony, CHRIS, PED Address: [place], [facility] [place] [address]- When: Unknown [facility] 07-12-2024 NotePatient Education [...] health care provider. General instructions ? Take arog-dcv-vtyyfbd and prescription medicines only as told by [...] provider. Document Revised: 09/07/2021 Document Reviewed: 09/07/2021 [employer] Patient Education ? 2022 for[MD]. Endocrinology Preventing Hypoglycemia Hypoglycemia occurs when the [...] may not (more content not included)...[facility]07-12-2024 History of Present illness Narrative* Tamiko Krueger LSW - 11/09/2023 9:27 AM EDT Patient appears on the [facility] First Time Treatment List for a non-oncology treatment. No psychosocial assessment is indicated. TIM Huerta-Jaylan documented in this encounterThe Jewish Hospital07-09-2024 Telephone encounter Note * Telephone Encounter [...] dizziness, etc. Appointments verified. Rachael Johnson RN [facility]07-09-2024 Miscellaneous Notes* Telephone Encounter - Rachael [...] will get you feeling better. Sumit, Dr. Mdidleton * Telephone Encounter - Roberta Haskins - [...] Sent: 11/05/2023 11:33 AM EDT To: [facility] Triage Pool; [facility] Clerical Pool Perry Isidro - looks like you need Iron again. Dr. Middleton Cancel her virtual set for 11/05 and 11/19 - infuse 3 doses weekly iron and then see her in 8 weeks inperson - labs same day. Thanks! documented in this encounterThe Jewish Hospital07-08-2024 Telephone encounter Note * Telephone Encounter [...] get you feeling better. Best, Dr. Middleton [facility]07-08-2024 Telephone encounter Note* Telephone Encounter - [...] is on a blood thinner. Roberta Haskins [facility]07-08-2024 Telephone encounter Note* Telephone Encounter - Roberta Haskins - 11/05/2023 12:47 PM EDT Appointment tomorrow cancelled. Andres tried calling her this morning and was unable to get a hold ofher. Will keep trying patient to schedule for Iron. Roberta Haskins [facility]07-08-2024 Telephone encounter Note* Telephone Encounter - Roberta Haskins - 11/05/2023 12:47 PM EDT ----- Message from Rachael Johnson RN sent at 11/05/2023 11:53 AM EDT ----- ----- Message ----- From: Kristofer Calix MD Sent: 11/05/2023 11:33 AM EDT To: [facility] Triage Pool; [facility] Clerical Pool Perry Isidro - looks like you need Iron again. Dr. Middleton Cancel her virtual set for 11/05 and 11/19 - infuse 3 doses weekly iron and then see her in 8 weeks inperson - labs same day. Thanks! [facility]06-25[facility] Hospital Discharge instructions Patient Education 10/23/2023 [...] specializes in ear, nose, and throat disorders (product marketing intern, or ENT) for more tests and treatment. [...] (rhinoplasty). Follow these instructions at home: Take ydel-yrh-wwsqkii and prescription medicines only as told by [...] specializes in ear, nose, and throat disorders (product marketing intern, or ENT) for more tests and treatment. This information is not intended to replace advice given to you by your health care provider. Make sure you discuss any questions you have with your health care provider. Document Revised: 12/12/2021 Document Reviewed: 12/12/2021 [employer] Patient Education 2022 for[MD]. 10/23/2023 17:12:52 Nasal Polyps Nasal Polyps Nasal [...] instructions at home: Medicines Take or use qwxy-mbc-rdjofby and prescription medicines only as told by [...] provider. Document Revised: 04/05/2022 Document Reviewed: 04/05/2022 [employer] Patient Education 2022 for[MD]. 10/23/2023 17:12:52 Nasal Polypectomy Nasal Polypectomy Nasal [...] including vitamins, herbs, eye drops, creams, and aqph-vyy-tnvlvhe medicines. Any problems you or family members [...] provider tells you to take them. Taking kfgg-ajt-cogpqii medicines, vitamins, herbs, and supplements. General instructions [...] provider. Document Revised: 04/05/2022 Document Reviewed: 04/05/2022 [employer] Patient Education 2022 for[MD]. 10/23/2023 17:12:46 BMI for Adults BMI for [...] numbers. This can be done either in [place] ([place] or metric measurements. Note that charts and online BMI calculators are available to help you find your BMI quickly and easily without having to do these calculations yourself. To calculate your BMI in [place] ([place] measurements: 1.Measure your weight in pounds [...] Centers for Disease Control and Prevention: www.cdc.gov [place] Heart Association: www.heart.org National Heart, Lung, and Blood [place]: www.nhlbi.nih.gov Summary Body mass index (BMI) is a number that is calculated from a person's weight and height. BMI may help estimate how much of a person's weight is composed of fat. BMI can help identify thosewho may be at higher risk for certain medical problems. BMI can be measured using [place] measurements or metric measurements. BMI charts are used to identify whether you are underweight, normal weight, overweight, or obese. This information is not intended to replace advice given to you by your health care provider. Make sure you discuss any questions you have with your health care provider. Document Revised: 01/07/2020 Document Reviewed: 11/14/2019 [employer] Patient Education 2022 for[MD]. Follow Up Care 10/23/2023 08:49:41 With:Lourdes Urrutia Address: [address] [place] [address], [facility] [place] [address]- When: only if needed [facility] 05-31-2024 Hospital Discharge [...] Follow these instructions at home: Medicines Take qicl-ezw-uwubqdo and prescription medicines only as told by [...] Watch your condition for any changes. Take yasy-vwy-vbsdliy and prescription medicines only as told by [...] provider. Document Revised: 06/04/2020 Document Reviewed: 08/25/2019 [employer] Patient Education 2022 for[MD]. Follow Up Care 09/28/2023 18:22:59 With:Penleope CASAS Address: [address], [place] [address]- Business (1) When:Within 3 Day(s) [facility]05-31-2024 Hospital Discharge instructions Patient Education 09/28/2023 18:24:44 [...] numbers. This can be done either in Cuban (U.S.) or metric measurements. Note that charts and online BMI calculators are available to help you find your BMI quickly and easily without having to do these calculations yourself. To calculate your BMI in Cuban (U.S.) measurements: 1.Measure your weight in pounds [...] Centers for Disease Control and Prevention: www.cdc.gov [place] Heart Association: www.heart.org National Heart, Lung, and Blood [place]: www.nhlbi.nih.gov Summary Body mass index (BMI) is a number that is calculated from a person's weight and height. BMI may help estimate how much of a person's weight is composed of fat. BMI can help identify thosewho may be at higher risk for certain medical problems. BMI can be measured using Cuban measurements or metric measurements. BMI charts are used to identify whether you are underweight, normal weight, overweight, or obese. This information is not intended to replace advice given to you by your health care provider. Make sure you discuss any questions you have with your health care provider. Document Revised: 01/07/2020 Document Reviewed: 11/14/2019 [employer] Patient Education 2022 for[MD]. 09/28/2023 18:24:42 Hypertension, Adult, Cxsf-mq-Clay Hypertension, Adult Hypertension is another name for [...] doctor. Keep all follow-up visits. Medicines Take qnls-zyt-xpbwucq and prescription medicines only as told by [...] provider. Document Revised: 02/02/2022 Document Reviewed: 02/02/2022 [employer] Patient Education 2022 for[MD]. 09/28/2023 18:24:32 Abdominal Pain, Adult, Kmin-vf-Dfgn Abdominal Pain, Adult Many things can cause belly (abdominal) pain. Most times, belly pain is not dangerous. Many cases of belly pain can be watched and treated at home. Sometimes, though, belly pain is serious. Your doctor will try to find the cause of your belly pain. Follow these instructions at home: Medicines Take cqrp-vaj-axbgnop and prescription medicines only as told by [...] your belly pain for any changes. Take gvuj-huf-pabsaou and prescription medicines only as told by [...] provider. Document Revised: 08/25/2019 Document Reviewed: 08/25/2019 [employer] Patient Education 2022 for[MD]. Follow Up Care 09/28/2023 16:11:11 With:Emergency room Address: When: only if needed Comments:Patient was instructed to contact emergency room for any worsening abdominal pain, concerns, or complications. [facility] 05-31-2024 Evaluation + [...] 12:40:00 PM Scheduled Provider:Penelope CASAS DO, FAAFP Location:[facility] Appointment Type:FM Open Future Scheduled Tests Laboratory* HgbA1c 08/03/23 [facility]05-30-2024 Telephone encounter Note* Telephone Encounter - Divine Roberta - 09/27/2023 4:38 PM EDT Attempt has been made x2 to reschedule patient. She did not have labs drawn. Roberta Haskins [facility]05-30-2024 Miscellaneous Notes* Telephone Encounter - JocelynelesterRoberta - 09/27/2023 4:38 PM EDT Attempt has been made x2 to reschedule patient. She did not have labs drawn. Roberta Haskins documented [facility] History of Present illness Narrative* Kristofer Calix MD - 09/26/2023 9:11 AM EDT Did not have labs done to prep for this visit - reschedule. Kristofer Calix MD documented [facility] Hospital Discharge instructions Patient Education 08/03/2023 [...] your health care provider or diet and cnc specialist (dietitian). This may include: ?Eating fewer [...] provider. Document Revised: 06/12/2021 Document Reviewed: 06/12/2021 [employer] Patient Education 2022 for[MD]. Follow Up Care 02/15/2023 10:07:52 With:PARVEEN RESENDEZ FAAFP, Penelope Tony, CHRIS, PED Address: [address], [place] [address]- When:Within 4 Month(s) [facility] 04-05-2024 Evaluation + Plan note Future Scheduled Tests Laboratory* HgbA1c 08/03/23 Radiology* CT Soft Tissue Neck w/ Contrast 11/12/23 [facility] 02-22-2024 Hospital Discharge [...] or if there is an kennedy for [employer]. Most glucose meters store a record of [...] mayhave. Where to find more information The [place] Diabetes Association: www.diabetes.org The Association of Diabetes [...] provider. Document Revised: 01/12/2021 Document Reviewed: 01/12/2021 Motor[employer] Patient Education 2022 for[MD]. 06/21/2023 06:07:34 Preventing Iron Deficiency Anemia, Adult [...] iron. Foods high in vitamin C include: ?Choctaw fruits, such as tai, oranges, and grapefruits. [...] iron supplement is right for you. Take sowt-hmg-igeknvs and prescription medicines only as told by your health care provider. Keep all follow-up visits. Where to find more information Learn more about preventing iron deficiency from: National Heart, Lung, and Blood [place]: www.nhlbi.nih.gov [place] Society of Hematology: www.hematology.org Contact a health [...] provider. Document Revised: 05/24/2022 Document Reviewed: 05/24/2022 [employer] Patient Education 2022 for[MD]. 06/21/2023 06:07:28 BMI for Adults BMI for [...] numbers. This can be done either in Cuban (U.S.) or metric measurements. Note that charts and online BMI calculators are available to help you find your BMI quickly and easily without having to do these calculations yourself. To calculate your BMI in Cuban (U.S.) measurements: 1.Measure your weight in pounds [...] Centers for Disease Control and Prevention: www.cdc.gov [place] Heart Association: www.heart.org National Heart, Lung, and Blood [place]: www.nhlbi.nih.gov Summary Body mass index (BMI) is a number that is calculated from a person's weight and height. BMI may help estimate how much of a person's weight is composed of fat. BMI can help identify thosewho may be at higher risk for certain medical problems. BMI can be measured using Cuban measurements or metric measurements. BMI charts are used to identify whether you are underweight, normal weight, overweight, or obese. This information is not intended to replace advice given to you by your health care provider. Make sure you discuss any questions you have with your health care provider. Document Revised: 01/07/2020 Document Reviewed: 11/14/2019 [employer] Patient Education 2022 for[MD]. Follow Up Care 06/19/2023 13:39:56 With:PRAVEEN RESENDEZ FAAFP, Penelope Tony, CHRIS, PED Address: [address] [place] [id number]- When: Unknown [facility] 02-20-2024 Miscellaneous Notes* Telephone Encounter - Rachael Johnson RN - 06/19/2023 1:05 PM EST Pt called back and aware of Fely's message. She is agreeable to POC and denies further needs at thistime. She will call PCP to follow up on TSH Rachael Johnson RN * Telephone Encounter - Rachael Johnson RN - 06/19/2023 12:26 PM EST Socket Mobilet message sent Rachael Johnson RN * Telephone [...] lab results Roberta Haskins documented [facility]The [facility] Instructions* Patient Instructions* Nathaly Carney - [...] TSH, Calcium with CMP documented in this encounterThe [facility]02-[facility] Nurse Note* Serina Horton MA - [...] exercise. Serina Dawson MA documented in this encounterThe [facility] History of Present illness Narrative* Kristofer Calix MD - 06/15/2023 2:00 PM EST Images from the original note were not included. NAME: Sanna Rendon CLINIC NO.: [id number] DATE OF SERVICE: June 15, 2023 (Levon) [...] later in 2018. These were found in [place], [place]. I don't have access to these [...] a target-like rash shortly before presenting to [facility] in 2016 with headaches and [...] Monge soon. When she hada stoke in [place], she had symptoms up to a month [...] on Lovenox Hgb 13.1 @ [facility] Recommended ER if persisting bleeding but she [...] and at age 69. Both lived in [facility] but she was adopted. She was not able to see ID in October and will be seeing Dr. Baugh next week. Also will have her see Dr. Hamlin for her clotting disorder and make any other recommendations to optimize her treatment. Updated Visit, October 08, 2020: Telephone only Received call from pt stating she was seen in [facility] for numbness in her chest, throat, and extremities, and sob which has been worsening over the last week. We arranged a telephone visit for her franci questions with me. Sanna Rendon is a 34 year old female seen for Hypercoagulable state and recent concerns and symptoms that required her to be seen at [facility]. She went to the ER with Gradual worsening of breathing after progressive tingling of fingers and legs. She currently remains very fatigued even though she is sleeping well. Now recalls that before her stroke she remembers having a bull's eye rash and was seen with severe headaches in [facility] was found to have a stroke [...] canal and was sent to [facility] for MRI which was negative but non-contrasted. [...] history goes back to January 2016 in [facility] where she had persisting headaches and slurred speech followed by lower extremity weakness. This took a few months to resolve and she is back to her normal state of being but some point in time during her her next she was seen by Dr. Humera Hyde in [place] as well and was found to have [...] which included preparing to see the patient, nbkc-gt-jvjg patient care, completing clinical documentation, performing a medically appropriate examination, counseling and educating the patient/family/caregiver, ordering medications, tests, or p rocedures, independently interpreting results (not separately reported), communicating results to the patient/family/caregiver, and care coordination (not separately reported). Kristofer Calix MD, CPE Hematology and Oncology Services Provided at: [place], [place] Scribe Attestation: This note was scribed [...] under my direction. CC: MD Wilton Day, [address] [place] [address] Humaira Gaviria MD [address] [place] [id number] MD Cosmo Kingston MD Michael Blank, MD documented in this encounterThe [facility]02-[facility] Miscellaneous Notes* Telephone Encounter - Ebony Redding Ma - 06/11/2023 10:43 AM EST Labs for appointment on 06/15. Ebony Redding Ma documented in this encounterThe [facility]02-12-[facility]24 Miscellaneous Notes* Telephone Encounter - Nicol [...] Nicol Salgado * [facility]06/2023 8:37 AM EST Records faxed. [...] she was last seen by him. [facility] [address] [facility], [place], Please fax records Andres, Please follow up on this appt. Thank you documented in this encounterThe [facility] Hospital02-01-2024 History of Present illness Narrative* Kristofer Calix MD - 05/31/2023 4:30 PM EST Images from the original note were not included. NAME: Sanna Rendon CLINIC NO.: [id number] DATE OF SERVICE: May 31, 2023 (Levon) Some elements in this clinic note that are critical to medical decision making have been carefully reviewed and included from a prior clinic note dated: March 19, 2023 (Levon) Additional Clinicians involved in Sanna Rendon's care: Drs. Herrmann, Jorge Monge, Humaira Gaviria, VIRTUAL VISIT PROGRESS NOTE This is a virtual visit using Socket Mobilet Zoom Video Visit. It required patient- provider interaction for the medical decision making as documented below. I have communicated my name and active licensure. The patient's identity and physical location wereverified at the time of this visit. Either the patient or their legal mill representative has been informed of the risks and benefits of -- and alternatives to -- treatment through a remote evaluation andconsents to proceed with the evaluation remotely. CC: hypercoag state. ASSESSMENT: 37 year old woman 25 weeks presents with a prior history of CVA in 2016 and anantiphospholipid antibody that was identified much later in 2018. These were found in [place], [place]. I don't have access to these [...] a target-like rash shortly before presenting to [facility] in 2016 with headaches and [...] on Lovenox Hgb 13.1 @ [facility] Recommended ER if persisting bleeding but she [...] and at age 69. Both lived in [facility] but she was adopted. She was not able to see ID in October and will be seeing Dr. Baugh next week. Also will have her see Dr. Hamlin for her clotting disorder and make any other recommendations to optimize her treatment. Updated Visit, October 08, 2020: Telephone only Received call from pt stating she was seen in [facility] for numbness in her chest, throat, and extremities, and sob which has been worsening over the last week. We arranged a telephone visit for her franci questions with me. Sanna Rendon is a 34 year old female seen for Hypercoagulable state and recent concerns and symptoms that required her to be seen at [facility]. She went to the ER with Gradual worsening of breathing after progressive tingling of fingers and legs. She currently remains very fatigued even though she is sleeping well. Now recalls that before her stroke she remembers having a bull's eye rash and was seen with severe headaches in [facility] was found to have a stroke [...] canal and was sent to [facility] for MRI which was negative but non-contrasted. [...] history goes back to January 2016 in [facility] where she had persisting headaches and slurred speech followed by lower extremity weakness. This took a few months to resolve and she is back to her normal state of being but some point in time during her her next she was seen by Dr. Humera Hyde in [place] as well and was found to have [...] CPE Hematology and Oncology Services Provided at: [place], [place] CC: MD Wilton Day, [address] [place] [address] Humaira Gaviria MD [address] [place] [id number] MD Cosmo Kingston MD Michael Blank, MD documented in this encounterThe [facility]02-[facility] Instructions* Patient Instructions* Kristofer Calix MD [...] TSH, Calcium with CMP documented in this encounterThe [facility]01-[facility] Hospital Discharge instructions Patient Education 05/25/2023 [...] your ears completely after. General instructions Take efva-lhu-vouxvkq and prescription medicines only as told by [...] provider. Document Revised: 06/27/2021 Document Reviewed: 06/27/2021 Motor2 Patient Education 2022 for[MD]. 05/25/2023 12:02:06 Dyshidrotic Eczema Dyshidrotic Eczema Dyshidrotic [...] care provider who specializes in skin conditions (trash man) tohelp diagnose and treat this condition. How [...] locks in moisture. Medicines Take and apply irws-rti-byqomjh and prescription medicines only as told by [...] provider. Document Revised: 01/24/2021 Document Reviewed: 01/24/2021 Motor2 Patient Education 2022 for[MD]. 05/25/2023 12:02:02 Allergies, Adult, Aplt-qo-Akqm Allergies, Adult An allergy means that your [...] instructions at home: Medicines Take or apply xked-ems-vtvjqyf and prescription medicines only as told by [...] to the hospital. Summary Take or apply wsbe-hie-spirrmm and prescription medicines only as told by [...] provider. Document Revised: 02/25/2020 Document Reviewed: 02/25/2020 Motor2 Patient Education 2022 for[MD]. Follow Up Care 05/21/2023 12:21:27 With:PRAVEEN RESENDEZ FAAFP, Penelope Tony, CHRIS, PED Address: [facility] [address] [place] [address]- When:Within 2 Month(s) [facility] 11-20-2023 History of Present illness Narrative* Kristofer Calix MD - 03/19/2023 4:45 PM EST Images from the original note were not included. NAME: Sanna Rendon CLINIC NO.: [id number] DATE OF SERVICE: March 19, 2023 (Levon) [...] visit. Either the patient or their legal mill representative has been informed of the risks and benefits of -- and alternatives to -- treatment through a remote evaluation andconsents to proceed with the evaluation remotely. CC: hypercoag state. ASSESSMENT: 37 year old woman 25 weeks presents with a prior history of CVA in 2016 and anantiphospholipid antibody that was identified much later in 2018. These were found in [place], [place]. I don't have access to these [...] a target-like rash shortly before presenting to [facility] in 2016 with headaches and [...] on Lovenox Hgb 13.1 @ [facility] Recommended ER if persisting bleeding but she [...] and at age 69. Both lived in [facility] but she was adopted. She was not able to see ID in October and will be seeing Dr. Baugh next week. Also will have her see Dr. Hamlin for her clotting disorder and make any other recommendations to optimize her treatment. Updated Visit, October 08, 2020: Telephone only Received call from pt stating she was seen in [facility] for numbness in her chest, throat, and extremities, and sob which has been worsening over the last week. We arranged a telephone visit for her chanw questions with me. Sanna Rendon is a 34 year old female seen for Hypercoagulable state and recent concerns and symptoms that required her to be seen at [facility]. She went to the ER with Gradual worsening of breathing after progressive tingling of fingers and legs. She currently remains very fatigued even though she is sleeping well. Now recalls that before her stroke she remembers having a bull's eye rash and was seen with severe headaches in [facility] was found to have a stroke [...] canal and was sent to [facility] [place] MRI which was negative but non-contrasted. [...] history goes back to January 2016 in [facility] where she had persisting headaches and slurred speech followed by lower extremity weakness. This took a few months to resolve and she is back to her normal state of being but some point in time during her her next she was seen by Dr. Humera Hyde in [place] as well and was found to have [...] CPE Hematology and Oncology Services Provided at: [place], [place] CC: MD Wilton Day, [address] [place] [address] Humaira Gaviria MD [address] [place] [id number] MD Cosmo Kingston MD Michael Blank, MD documented in this encounterThe [facility]11-[facility]23 Instructions* Patient Instructions* Kristofer Calix MD - 03/19/2023 4:44 PM EST Continue Lovenox - patient prefers 40 mg (rather than rec 80mg) Take B12 supplement in the form of a sublingual tablet. Take Vitamin D3 5000 international unit(s) daily Check labs in 8 weeks Phone / Virtual call after documented in this encounterThe [facility]10-[facility]23 Hospital Discharge instructions Patient Education 02/15/2023 10:13:08 Ear Drops, Adult, Xqzi-cd-Qzzc Ear Drops, Adult Your doctor has found [...] cannot use soap and water, use hand concrete mixer operator. 2.Make sure your ears are clean and [...] you cannot use soapand water, use hand concrete mixer operator. Follow these instructions at home: Use the [...] provider. Document Revised: 02/11/2020 Document Reviewed: 02/11/2020 [employer] Patient Education 2022 [employer] 02/15/2023 10:13:05 Otitis Externa, Mdmj-cw-Vlhu Otitis Externa Otitis externa is an infection [...] if you start to feel better. Take gnwj-pex-bcwgcez and prescription medicines only as told by [...] provider. Document Revised: 06/29/2021 Document Reviewed: 06/29/2021 [employer] Patient Education 2022 for[MD]. Follow Up Care 02/14/2023 12:28:12 With:PRAVEEN RESENDEZ FAAFP, Penelope Tony, CHRIS, PED [address] [place] [address]- When:Within 2 Month(s) [facility] 08-25-2023 Hospital Discharge [...] including vitamins, herbs, eye drops, creams, and avmb-jxq-unlitkt medicines. ?Whether you are or may be [...] provider. Document Revised: 12/28/2021 Document Reviewed: 11/19/2020 [employer] Patient Education 2022 for[MD]. 12/22/2022 15:19:23 Fatigue Fatigue If you have [...] Follow these instructions at home: Medicines Take bywg-jqz-bpdtziw and prescription medicines only as told by [...] the National Suicide Prevention Lifeline at or 465. This is open 24 hours a day. Text the Crisis Text Line at 824490. Summary If you have fatigue, you feel [...] provider. Document Revised: 02/06/2022 Document Reviewed: 02/06/2022 [employer] Patient Education 2022 for[MD]. Follow Up Care 12/22/2022 10:22:02 With:Lourdes Urrutia Address: [facility] [address], [facility] [place] [address]- When: only if needed [facility] 08-25-2023 Instructions* Patient Instructions* Kristofer Calix MD - 12/22/2022 10:13 AM EDT Continue Lovenox - patient prefers 40 mg (rather than rec 80mg) Take B12 supplement in the form of a sublingual tablet. Take Vitamin D3 5000 international unit(s) daily Check labs in 8 weeks Phone / Virtual call after documented in this encounterThe [facility]08-[facility]23 History of Present illness Narrative* Kristofer Calix MD - 12/22/2022 9:55 AM EDT Images from the original note were not included. Kristofer Calix MD NAME: Sanna Rendon CLINIC NO.: [id number] DATE OF SERVICE: December 22, 2022 (Levon) [...] visit. Either the patient or their legal mill representative has been informed of the risks and benefits of -- and alternatives to -- treatment through a remote evaluation andconsents to proceed with the evaluation remotely. CC: hypercoag state. ASSESSMENT: 37 year old woman with a prior history of CVA in 2016 and an antiphospholipid antibody that was identified much later in 2018. These were found in [place], [place]. I don't have access to these [...] a target-like rash shortly before presenting to [facility] in 2016 with headaches and [...] on Lovenox Hgb 13.1 @ [facility] Recommended ER if persisting bleeding but she [...] and at age 69. Both lived in [facility] but she was adopted. She was not able to see ID in October and will be seeing Dr. Baugh next week. Also will have her see Dr. Hamlin for her clotting disorder and make any other recommendations to optimize her treatment. Updated Visit, October 08, 2020: Telephone only Received call from pt stating she was seen in [facility] for numbness in her chest, throat, and extremities, and sob which has been worsening over the last week. We arranged a telephone visit for her franci questions with me. Sanna Rendon is a 34 year old female seen for Hypercoagulable state and recent concerns and symptoms that required her to be seen at [facility]. She went to the ER with Gradual worsening of breathing after progressive tingling of fingers and legs. She currently remains very fatigued even though she is sleeping well. Now recalls that before her stroke she remembers having a bull's eye rash and was seen with severe headaches in [place], [place] - was found to have a [...] canal and was sent to [facility] [place] MRI which was negative but non-contrasted. [...] history goes back to January 2016 in [facility] where she had persisting headaches and slurred speech followed by lower extremity weakness. This took a few months to resolve and she is back to her normal state of being but some point in time during her her next she was seen by Dr. Humera Hyde in [place] as well and was found to have [...] CPE Hematology and Oncology Services Provided at: [place], [place] CC: MD Wilton Day, [address] [address] Humaira Gaviria MD [address] [facility] [address] MD Cosmo Kingston MD Michael Blank, MD documented in this encounterThe [facility]08-16-[facility]23 Miscellaneous Notes* Telephone Encounter - Roberta [...] later time. Roberta Haskins documented in this encounterThe Jewish Hospital06-23-2023 Hospital Discharge instructions Patient Education 10/20/2022 [...] your health care provider or diet and cnc specialist (dietitian). This may include: ?Eating fewer [...] provider. Document Revised: 06/12/2021 Document Reviewed: 06/12/2021 [employer] Patient Education 2022 for[MD]. 10/20/2022 10:37:18 Preventing Type 2 Diabetes Mellitus [...] with a registered dietitian. This diet and cnc specialist can help you make a healthy eating plan and help you understand portion sizes and food labels. Where to find support Ask your health care provider to recommend a registered dietitian, a certified diabetes care and continuing education specialist, or a weight loss program. Look for local or online weight loss groups. Join a gym, fitness club, or outdoor activity group, such as a walking club. Where to find more information For help and guidance and to learn more about diabetes and diabetes prevention, visit: [place] Diabetes Association (ADA): www.diabetes.org National [place] of Diabetes and Digestive and Kidney Diseases: [...] provider. Document Revised: 07/11/2021 Document Reviewed: 07/11/2021 [employer] Patient Education 2022 for[MD]. 10/20/2022 10:37:17 Preventing Hypoglycemia Preventing Hypoglycemia Hypoglycemia [...] your hypoglycemia. Where to find more information [place] Diabetes Association: www.diabetes.org National [place] of Diabetes and Digestive and Kidney Diseases: [...] provider. Document Revised: 03/17/2021 Document Reviewed: 03/17/2021 [employer] Patient Education 2022 for[MD]. 10/20/2022 10:37:16 Gestational Diabetes Mellitus, Diagnosis, Hkoe-te-Goog Gestational Diabetes Mellitus, Diagnosis Gestational diabetes mellitus [...] follow-up visits. Where to find more information [place] Diabetes Association (ADA): diabetes.org Association of Diabetes Care & Education Specialists (ADCES): diabeteseducator.org Centers for Disease Control and Prevention (CDC): cdc.gov [place] Association: americanpregnancy.org U.S. Department of Agriculture MyPlate: [...] provider. Document Revised: 09/20/2020 Document Reviewed: 09/20/2020 [employer] Patient Education 2022 for[MD]. Follow Up Care 09/19/2022 14:47:09 With:PRAVEEN RESENDEZ FAAFP, CHRIS Perez, PED Address: [place] [address]- When:Within 3 Month(s) [facility] Primary Care 06-01-2023 History of Present illness Narrative* Kristofer Calix MD - 09/28/2022 5:00 PM EDT Images from the original note were not included. Kristofer Calix MD NAME: Sanna Rendon CLINIC NO.: [id number] DATE OF SERVICE: September 28, 2022 (Levon) [...] visit. Either the patient or their legal mill representative has been informed of the risks and benefits of -- and alternatives to -- treatment through a remote evaluation andconsents to proceed with the evaluation remotely. CC: hypercoag state. ASSESSMENT: 36 year old woman 25 weeks presents with a prior history of CVA in 2016 and anantiphospholipid antibody that was identified much later in 2018. These were found in [place], [place]. I don't have access to these [...] a target-like rash shortly before presenting to [facility] in 2016 with headaches and [...] on Lovenox Hgb 13.1 @ [facility] Re[place] ER if persisting bleeding but she [...] and at age 69. Both lived in [facility] but she was adopted. She was not able to see ID in October and will be seeing Dr. Baugh next week. Also will have her see Dr. Hamlin for her clotting disorder and make any other recommendations to optimize her treatment. Updated Visit, October 08, 2020: Telephone only Received call from pt stating she was seen in [facility] [place] for numbness in her chest, throat, and extremities, and sob which has been worsening over the last week. We arranged a telephone visit for her toreview questions with me. Sanna Rendon is a 34 year old female seen for Hypercoagulable state and recent concerns and symptoms that required her to be seen at [facility]. She went to the ER with Gradual worsening of breathing after progressive tingling of fingers and legs. She currently remains very fatigued even though she is sleeping well. Now recalls that before her stroke she remembers having a bull's eye rash and was seen with severe headaches in [place], [place] - was found to have a [...] canal and was sent to [facility] for MRI which was negative but non-contrasted. [...] history goes back to January 2016 in [facility] where she had persisting headaches and slurred speech followed by lower extremity weakness. This took a few months to resolve and she is back to her normal state of being but some point in time during her her next she was seen by Dr. Humera Hyde in [place] as well and was found to have [...] CPE Hematology and Oncology Services Provided at: [place], [place] CC: MD Wilton Day, [address] [place] [address] Humaira Gaviria MD [address] [place] [address] [place] [address] MD Cosmo Kingston MD Michael Blank, MD documented in this encounterThe Jewish Hospital05-24-2023 Miscellaneous Notes* Telephone Encounter - Cheri Acharya Sec - 09/20/2022 7:06 AM EDT Cxed appt * Telephone Encounter - Valeri Yeung RN - 09/19/2022 3:29 PM EDT Patient would like to have labs drawn at [facility]. Called [facility] lab to get fax number. Lab orders faxed to [phone] Valeri Yeung RN PSS: Can you cancel lab appointment for 09/21/22 here. Thanks. Valeri Yeung RN documented in this encounterThe Jewish Hospital04-04-2023 Instructions* Patient Instructions* Kristofer Calix MD - 08/01/2022 10:56 AM EDT Continue Lovenox - patient prefers 40 mg (rather than rec 80mg) 8 weeks - labs Phone / Virtual call after documented in this encounterThe Jewish Hospital03-30-2023 History of Present illness Narrative* Kristofer Calix MD - 07/27/2022 1:18 PM EDT NAME: Sanna Rendon CLINIC NO.: [id number] DATE OF SERVICE: July 27, 2022 (Levon) [...] later in 2018. These were found in [place], [place]. I don't have access to these [...] a target-like rash shortly before presenting to [facility] in 2016 with headaches and [...] and at age 69. Both lived in [facility] but she was adopted. She was not able to see ID in October and will be seeing Dr. Baugh next week. Also will have her see Dr. Hamlin for her clotting disorder and make any other recommendations to optimize her treatment. Updated Visit, October 08, 2020: Telephone only Received call from pt stating she was seen in [facility] [place] for numbness in her chest, throat, and extremities, and sob which has been worsening over the last week. We arranged a telephone visit for her domingoeview questions with me. Sanna Rendon is a 34 year old female seen for Hypercoagulable state and recent concerns and symptoms that required her to be seen at [facility]. She went to the ER with Gradual worsening of breathing after progressive tingling of fingers and legs. She currently remains very fatigued even though she is sleeping well. Now recalls that before her stroke she remembers having a bull's eye rash and was seen with severe headaches in [place], [place] - was found to have a [...] canal and was sent to [facility] [place] MRI which was negative but non-contrasted. [...] history goes back to January 2016 in [facility] where she had persisting headaches and slurred speech followed by lower extremity weakness. This took a few months to resolve and she is back to her normal state of being but some point in time during her her next she was seen by Dr. Humera Hyde in [place] as well and was found to have [...] which included preparing to see the patient, rhxj-ae-orno patient care, completing clinical documentation, obtaining and/or reviewing separately obtained history, performing a medically appropriate examination, counseling and educating the pat ient/family/caregiver, ordering medications, tests, or procedures, independently interpreting results (not separately reported), and care coordination (not separately reported). Kristofer Calix MD, CPE Hematology and Oncology Services Provided at: [place], [place] CC: MD Wilton Day, [address] [place] [address] Humaira Gaviria MD [address] [facility] [address] MD Cosmo Kingston MD Michael Blank, MD documented in this encounterThe Jewish Hospital12-07-2022 History of Present illness Narrative* Alison [...] to standard infusion rate. documented in this encounterThe Jewish Hospital12-06-2022 Miscellaneous Notes* Telephone Encounter - Marleen [...] answered. Pt transferred to front end developer designer at her request so she can reschedule dates of IV iron d/t otherappts. FELY: Pt would like to have Venofer ordered and not get Monoferric even if approved. Please place orders if agreeable. Meme Gonzalez RN documented in this encounterThe Jewish Hospital12-01-2022 Miscellaneous Notes* Telephone Encounter - Roberta [...] were not included. Kristofer Calix MD [facility] Triage Pool; [facility] Clerical Pool She needs iron MUNIRA - if monoferric isn't approved, lets get her in weekly for Venna for. * Telephone Encounter - Roberta Haskins - 03/27/2022 2:57 PM EST 2. Consider IV iron a. Triage nurse to please call iron results when available this week documented in this encounterThe Jewish Hospital11-28-2022 Instructions* Patient Instructions* Kristofer Calix MD - 03/27/2022 2:51 PM EST Continue Lovenox - patient prefers 40 mg (rather than rec 80mg) Consider IV iron Triage nurse to please call iron results when available this week Will recheck antiphospholipid antibodies as ordered and every 6 months. RTC in 8 weeks - labs same day. documented in this encounterThe Jewish Hospital11-28-2022 History of Present illness Narrative* Kristofer Calix MD - 03/27/2022 2:15 PM EST Images from the original note were not included. NAME: Sanna Rendon CLINIC NO.: [id number] DATE OF SERVICE: March 27, 2022 (radhaelaina) [...] later in 2018. These were found in [place], [place]. I don't have access to these [...] a target-like rash shortly before presenting to [facility] in 2016 with headaches and [...] and at age 69. Both lived in [facility] but she was adopted. She was not able to see ID in October and will be seeing Dr. Baugh next week. Also will have her see Dr. Hamlin for her clotting disorder and make any other recommendations to optimize her treatment. Updated Visit, October 08, 2020: Telephone only Received call from pt stating she was seen in [facility] [place] for numbness in her chest, throat, and extremities, and sob which has been worsening over the last week. We arranged a telephone visit for her chanw questions with me. Sanna Rendon is a 34 year old female seen for Hypercoagulable state and recent concerns and symptoms that required her to be seen at [facility]. She went to the ER with Gradual worsening of breathing after progressive tingling of fingers and legs. She currently remains very fatigued even though she is sleeping well. Now recalls that before her stroke she remembers having a bull's eye rash and was seen with severe headaches in [place], [place] - was found to have a [...] canal and was sent to [facility] [place] MRI which was negative but non-contrasted. [...] her to discuss her risk with Dr. eHrrmann. She will need to be on lovenox [...] history goes back to January 2016 in [facility] where she had persisting headaches and slurred speech followed by lower extremity weakness. This took a few months to resolve and she is back to her normal state of being but some point in time during her her next she was seen by Dr. Humera Hyde in [place] as well and was found to have [...] which included preparing to see the patient, kqyo-tf-fkwd patient care, completing clinical documentation, obtaining and/or reviewing separately obtained history, performing a medically appropriate examination, counseling and educating the pat ient/family/caregiver, ordering medications, tests, or procedures, independently interpreting results (not separately reported), and care coordination (not separately reported). Kristofer Calix MD, CPE Hematology and Oncology Services Provided at: [place], [place] CC: MD Wilotn Day, [address] [place] [address] Humaira Gaviria MD [address] [place] [address] MD Cosmo Kingston MD Michael Blank, MD documented in this encounterThe Jewish Hospital10-03-2022 Instructions* Patient Instructions* Kristofer Calix MD - 01/30/2022 12:[address] Hamlin's expertise and will prescribe Lovenox - patient prefers 40 mg (rather than rec 80mg) Will recheck antiphospholipid antibodies as ordered and every 6 months. RTC in 8 weeks - labs same day. documented in this encounterThe Jewish Hospital10-03-2022 History of Present illness Narrative* Kristofer Calix MD - 01/30/2022 11:59 AM EDT Images from the original note were not included. NAME: Sanna Rendon CLINIC NO.: [id number] DATE OF SERVICE: January 30, 2022 Some [...] later in 2018. These were found in [place], [place]. I don't have access to these [...] a target-like rash shortly before presenting to [facility] in 2016 with headaches and [...] and at age 69. Both lived in [facility] but she was adopted. She was not able to see ID in October and will be seeing Dr. Baugh next week. Also will have her see Dr. Hamlin for her clotting disorder and make any other recommendations to optimize her treatment. Updated Visit, October 08, 2020: Telephone only Received call from pt stating she was seen in [facility] [place] for numbness in her chest, throat, and extremities, and sob which has been worsening over the last week. We arranged a telephone visit for her chanw questions with me. Sanna Rendon is a 34 year old female seen for Hypercoagulable state and recent concerns and symptoms that required her to be seen at [facility]. She went to the ER with Gradual worsening of breathing after progressive tingling of fingers and legs. She currently remains very fatigued even though she is sleeping well. Now recalls that before her stroke she remembers having a bull's eye rash and was seen with severe headaches in [facility] was found to have a stroke [...] canal and was sent to [facility] [place] MRI which was negative but non-contrasted. [...] history goes back to January 2016 in [facility] where she had persisting headaches and slurred speech followed by lower extremity weakness. This took a few months to resolve and she is back to her normal state of being but some point in time during her her next she was seen by Dr. Humera Hyde in [place] as well and was found to have [...] which included preparing to see the patient, odqw-ra-fcjj patient care, completing clinical documentation, obtaining and/or reviewing separately obtained history, performing a medically appropriate examination, counseling and educating the pat ient/family/caregiver, and ordering medications, tests, or procedures. Kristofer Calix MD, [place], [place] CC: MD Chalino Dayy Jeanine Herrmann, [address] [place] [address] Humaira Gaviria MD [address] [place] [address] MD Cosmo Kingston MD Michael Blank, MD documented in this encounterThe Jewish Hospital10-03-2022 Nurse Note* Serina Dawson MA - 01/30/2022 11:55 AM EDT Patient states she may be diagnosed with gestational diabetes, she was from 215 to 52 a couple hours later after eating wheat cereal. She sees OB tomorrow. Serina Dawson MA documented in this encounterThe Jewish Hospital09-02-2022 Miscellaneous Notes* Telephone Encounter - Tonja Pope RN - 12/30/2021 10:15 AM EDT Call received from Sanna requesting refill of Lovenox 40 mg to be sent to [facility] in [place]. FELY: Please review and approve if you agree. Tonja Chery RN documented in this encounterThe Jewish Hospital06-13-2022 Miscellaneous Notes* Telephone Encounter - Meme Easton RN - 10/10/2021 12:15 PM EDT Received call from pt requesting refill of Lovenox 40 mg to be sent to [facility] in [place]. FELY: Pt also states she had one episode of blood in her stool which was dripping blood which concerned her. She is not ready to move to 80 mg of Lovenox at this time. Order pending. Please review and sign if agreeable. Meme Easton RN documented in this encounterThe Jewish Hospital05-10-2022 Miscellaneous Notes* Telephone Encounter - Kristofer [...] agreeable. Meme Easton RN documented in this encounterThe Jewish Hospital05-09-2022 Miscellaneous Notes* Telephone Encounter - Meme [...] advise. Meme Easton RN documented in this encounterThe Jewish Hospital04-25-2022 Miscellaneous Notes* Telephone Encounter - Meme [...] Thoughts? Meme Easton RN documented in this encounterThe Jewish Hospital04-22-2022 Hospital Discharge instructions Patient Education 08/19/2021 [...] including vitamins, herbs, eye drops, creams, and jyms-odo-bxdfdyq medicines. ?Whether you are or may be [...] 02/11/2008 Document Revised: 08/05/2019 Document Reviewed: 02/18/2018 [employer] Patient Education 2020 [employer] 08/19/2021 13:02:21 Dysuria Dysuria Dysuria is [...] alcohol may irritate the prostate. Medicines Take ikex-wvj-jpptgas and prescription medicines only as told by [...] 01/12/2005 Document Revised: 03/29/2018 Document Reviewed: 01/31/2018 [employer] Patient Education 2020 for[MD]. 08/19/2021 13:02:17 Budget-Friendly Healthy Eating Budget-Friendly Healthy [...] frozen fruits, and frozen vegetables. Avoid buying rzqeu-qr-rlt foods, such as pre-cut fruits and vegetables [...] 12/18/2014 Document Revised: 04/17/2018 Document Reviewed: 04/17/2018 [employer] Patient Education 2020 for[MD]. 08/19/2021 13:02:15 BMI for Adults BMI for [...] height. This can be done either in [place] ([place] or metric measurements. Note that charts are available to help you find your BMI quickly and easily without having to do these calculations yourself. To calculate your BMI in [place] ([place] measurements, your health care provider will: [...] medical problems. BMI can be measured using Cuban measurements or metric measurements. To interpret your [...] 12/26/2004 Document Revised: 03/29/2018 Document Reviewed: 02/27/2018 [employer] Patient Education 2020 for[MD]. 08/19/2021 13:02:11 Paresthesia Paresthesia Paresthesia is an [...] fried or sweet foods. General instructions Take nqce-ezb-xpflheo and prescription medicines only as told by [...] 04/06/2003 Document Revised: 05/12/2019 Document Reviewed: 04/25/2018 [employer] Patient Education 2020 for[MD]. Follow Up Care 08/19/2021 09:17:52 With:PRAVEEN RESENDEZ FAAFP, Penelope Tony, CHRIS, PED Address: [place], [place] [address]- When:1 to 2 weeks [facility] [place] 04-22-2022 Evaluation + Plan note Future Scheduled Tests Radiology* XR Spine Lumbosacral Minimum 4 Views 08/19/21 [facility]04-07-2022 Miscellaneous Notes* Telephone Encounter - Roberta Haskins - 08/04/2021 3:36 PM EDT Patient is scheduled for 09/[address] Elliott. Roberta Haskins * Telephone Encounter - Roberta Divine - 08/01/2021 1:05 PM EDT Sent Email to [facility] to refer patient back to Dr. Cosmo Elliott Dx: Primary hypercoagulable state (HCC) Roberta Divine documented in this encounterThe Jewish Hospital04-04-2022 Nurse Note* Ebony Redding Ma - 08/01/2021 12:48 PM EDT UA ran as ordered. Ebony Redding Ma documented in this encounterThe Jewish Hospital03-28-2020 Evaluation + Plan note Future Appointments Appointment Date:07/25/2024 02:30:00 PM Scheduled Provider: [facility] Appointment Type:CV EKG (FT) Appointment Date:07/25/2024 03:00:00 PM Scheduled Provider: Location[facility] Appointment Type:CV Holter/Event (FT) Appointment Date:09/09/2024 08:20:00 AM Scheduled Provider:Penelope CASAS DO, FAAFP Location:[facility] Appointment Type:FM Open Future Scheduled Tests Laboratory* HgbA1c 08/05/24 * HgbA1c 11/04/24 Radiology* CT Soft Tissue Neck w/ Contrast 11/12/23 [facility] 03-28-2020 Evaluation + Plan note Future Appointments Appointment Date:07/25/2024 02:30:00 PM Scheduled Provider: Location:[facility] Appointment Type:CV EKG (FT) Appointment Date:07/25/2024 03:00:00 PM Scheduled Provider: Location:[facility] Appointment Type:CV Holter/Event (FT) Appointment Date:09/09/2024 08:20:00 AM Scheduled Provider:Penelope CASAS DO, FAAFP Location:[facility] Appointment Type:FM Open Diagnostic Tests Pending * Hepatitis B Surface Antigen 07/09/24 * HCV Antibody RFX to Quant PCR 07/09/24 * Hep Be Ag 07/09/24 * HIV Screen 4th Generation wRfx 07/09/24 Future Scheduled Tests Laboratory* HgbA1c 08/05/24 * HgbA1c 11/04/24 Radiology* CT Soft Tissue Neck w/ Contrast 11/12/23 [facility] Evaluation + Plan note Future Appointments Appointment Date:11/08/2021 12:40:00 PM Scheduled Provider:Penelope CASAS DO, FAAFP Location:[facility] Appointment Type:FM Open Future Scheduled Tests Radiology* XR Spine Lumbosacral Minimum 4 Views 08/19/21 [facility] [place] Evaluation + Plan note Future Appointments Appointment Date:11/08/2021 12:40:00 PM Scheduled Provider:Penelope CASAS DO, FAAFP Location:[facility] Appointment Type:FM Open Diagnostic Tests Pending * Urine Culture 08/19/21 Future Scheduled Tests Radiology* XR Spine Lumbosacral Minimum 4 Views [facility]19/[facility] Future Appointments Appointment Date:09/21/2022 10:00:00 AM Scheduled Provider:Penelope CASAS DO, FAAFP Location:[facility]: [facility] Future Appointments Appointment Date:10/20/2022 09:40:00 AM Scheduled Provider:Penelope CASAS DO, FAAFP Location[facility] Future Appointments Appointment Date:01/26/2023 10:40:00 AM Scheduled Provider:Penelope CASAS DO, FAAFP Location:[facility] Appointment Type: Open [facility] Evaluation + Plan note Future Appointments Appointment Date:04/17/2023 02:20:00 PM Scheduled Provider:Penelope CASAS DO, FAAFP Location:[facility] Appointment Type:FM Open Future Scheduled Tests Laboratory* HgbA1c 02/15/23 * Thyroid Stimulating Hormone 02/15/23 * Thyroid Stimulating Hormone 01/11/23 [facility] Evaluation + Plan note Future Appointments Appointment Date:07/24/2023 01:20:00 PM Scheduled Provider:ePnelope CASAS DO, FAAFP Location:[facility] Appointment Type:FM Open Future Scheduled Tests Laboratory* HgbA1c 02/15/23 * Thyroid Stimulating Hormone [facility]15/23 [facility] Future Appointments Appointment Date:07/24/2023 01:20:00 PM Scheduled Provider:Penelope CASAS DO, FAAFP Location:[facility] Appointment Type: [facility] [facility] Primary Care Evaluation + Plan note Future Appointments Appointment Date:12/03/2023 12:40:00 PM Scheduled Provider:Penelope CASAS DO, FAAFP Location:[facility] Appointment Type:FM Open Future Scheduled Tests Laboratory* HgbA1c 08/03/23 [facility] Primary Care evaluation + Plan note Future Appointments Appointment Date:12/03/2023 12:40:00 PM Scheduled Provider:Penelope CASAS DO, FAAFP Location:[facility] Appointment Type:FM Open Future Scheduled Tests Laboratory* Sedimentation Rate Automated 11/09/23 * HgbA1c 08/03/23 * Amylase Level 11/09/23 * Cortisol 11/09/23 * C-Reactive Protein 11/09/23 * T3 Free 11/09/23 * Thyroid Stimulating Hormone 11/09/23 * Free T4 11/09/23 * Vitamin B12 Level 11/09/23 Radiology* MRI Brain w/o Contrast 11/09/23 * MRI Orbit Face Neck w/o contrast 11/09/23 [facility] Primary Care evaluation + Plan note Future Appointments Appointment Date:01/11/2024 08:15:00 PM Scheduled Provider: [facility] Appointment Type:JEWELRY CUTTER Sleep Study PSG () Appointment Date:01/29/2024 01:20:00 PM Scheduled Provider:Penelope CASAS DO, FAAFP Location:[facility] Appointment Type:FM Open Diagnostic Tests Pending * Cortisol 12/06/23 * T3 Free 12/06/23 Future Scheduled Tests Laboratory* HgbA1c 08/03/23 Radiology* CT Soft Tissue Neck w/ Contrast 11/12/23 [facility] evaluation + Plan note Future Appointments Appointment Date:05/16/2024 11:40:00 AM Scheduled Provider:Penelope CASAS DO, FAAFP Location:[facility] Appointment Type:FM Open Future Scheduled Tests Laboratory* HgbA1c 02/05/24 * HgbA1c 05/07/24 * HgbA1c 08/05/24 * HgbA1c 11/04/24 * HgbA1c 08/03/23 * HIV Screen 4th Generation wRfx 02/05/24 * HIV Screen 4th Generation wRfx 02/05/24 * Lipid Panel 02/05/24 Radiology* CT Soft Tissue Neck w/ Contrast 11/12/23 [facility] Primary Care evaluation + Plan note Future Appointments Appointment Date:05/16/2024 11:40:00 AM Scheduled Provider:Penelope CASAS DO, FAAFP Location:[facility] Appointment Type:FM Open Future Scheduled Tests Laboratory* HgbA1c 05/07/24 * HgbA1c 08/05/24 * HgbA1c 11/04/24 Radiology* CT Soft Tissue Neck w/ Contrast 11/12/23 [facility] evaluation + Plan note Future Appointments Appointment Date:05/16/2024 11:40:00 AM Scheduled Provider:Penelope CASAS DO, FAAFP Location:[facility] Appointment Type:FM Open Diagnostic Tests Pending * HIV Screen 4th Generation wRfx 02/23/24 Future Scheduled Tests Laboratory* HgbA1c 05/07/24 * HgbA1c 08/05/24 * HgbA1c 11/04/24 Radiology* CT Soft Tissue Neck w/ Contrast 11/12/23 [facility] evaluation + Plan note Future Appointments Appointment Date:05/16/2024 11:40:00 AM Scheduled Provider:Penelope CASAS DO, FAAFP Location:[facility] Appointment Type:FM Open Future Scheduled Tests Laboratory* HgbA1c 08/05/24 * HgbA1c 11/04/24 Radiology* CT Soft Tissue Neck w/ Contrast 11/12/23 [facility] evaluation + Plan note Future Appointments Appointment Date:05/16/2024 11:40:00 AM Scheduled Provider:Penelope CASAS DO, FAAFP Location:[facility] Appointment Type:FM Open Diagnostic Tests Pending * Urine Culture 03/01/24 Future Scheduled Tests Laboratory* HgbA1c 08/05/24 * HgbA1c 11/04/24 Radiology* CT Soft Tissue Neck w/ Contrast 11/12/23 [facility] evaluation + Plan note Future Appointments Appointment Date:07/07/2024 02:20:00 PM Scheduled Provider:Penelope CASAS DO, FAAFP Location:[facility] Appointment Type:FM Open Future Scheduled Tests Laboratory* HgbA1c 08/05/24 * HgbA1c 11/04/24 Radiology* CT Soft Tissue Neck w/ Contrast 11/12/23 [facility] Primary Care evaluation + Plan note Future Appointments Appointment Date:09/09/2024 08:20:00 AM Scheduled Provider:Penelope CASAS DO, FAAFP Location:[facility] Appointment Type:FM Open Future Scheduled Tests Laboratory* HgbA1c 08/05/24 * HgbA1c 11/04/24 Radiology* CT Soft Tissue Neck w/ Contrast 11/12/23 [facility] Primary Care evaluation note* Diagnosis Infective urethritis- Primary Urethritis, unspecified [facility] Primary hypercoagulable state (HCC) Primary hypercoagulable state CVA, old, speech/language deficit Speech and language deficit, unspecified, 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 Hyposmolality and/or hyponatremia documented in this encounter [facility] note* Diagnosis Primary hypercoagulable state (HCC) Primary hypercoagulable state CVA, old, speech/language deficit Speech and language deficit, unspecified, 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 Hyposmolality and/or hyponatremia documented in this encounter [facility] note* Diagnosis Primary hypercoagulable state (HCC)- Primary Primary hypercoagulable state CVA, old, speech/language deficit Speech and language deficit, unspecified, late effect of cerebrovascular disease Antiphospholipid antibody syndrome (HCC) Primary hypercoagulable state Anemia, unspecified type documented in this encounter [facility] note* Diagnosis Iron deficiency anemia secondary to blood loss (chronic) Iron deficiency anemia of Anemia of mother, complicating , childbirth, or the puerperium, unspecified as to episode of care documented in this encounter [facility] note* 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 Iron deficiency anemia of Anemia of mother, complicating , childbirth, or the puerperium, unspecified as to episode of care documented in this encounter [facility] note* Diagnosis Primary hypercoagulable state (HCC) Primary hypercoagulable state CVA, old, speech/language deficit Speech and language deficit, unspecified, 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 Hyposmolality and/or hyponatremia documented in this encounter [facility] note* 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 Iron deficiency anemia of Anemia of mother, complicating , childbirth, or the puerperium, unspecified as to episode of care documented in this encounter [facility] note* Diagnosis Primary hypercoagulable state (HCC) Primary hypercoagulable state CVA, old, speech/language deficit Speech and language deficit, unspecified, 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 Hyposmolality and/or hyponatremia documented in this encounter [facility] note* Diagnosis Primary hypercoagulable state (HCC)- Primary Primary hypercoagulable state 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, old, speech/language deficit Speech and language deficit, unspecified, late effect of cerebrovascular disease [facility] Primary hypercoagulable state (HCC) Primary hypercoagulable state CVA, old, speech/language deficit Speech and language deficit, unspecified, 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 Hyposmolality and/or hyponatremia [facility] Diagnosis Primary hypercoagulable state (HCC)- Primary Primary hypercoagulable state Iron deficiency anemia of Anemia of mother, complicating , childbirth, or the puerperium, unspecified as to episode of care Iron deficiency anemia secondary to blood loss (chronic) Vitamin D deficiency Unspecified vitamin D deficiency [facility] Diagnosis Primary hypercoagulable state (HCC)- Primary Primary hypercoagulable state Iron deficiency anemia secondary to blood loss (chronic) Vitamin D deficiency Unspecified vitamin D deficiency CVA, old, speech/language deficit Speech and language deficit, unspecified, late effect of cerebrovascular disease Antiphospholipid antibody syndrome (HCC) Primary hypercoagulable state [facility] Diagnosis Primary hypercoagulable state (HCC)- Primary Primary hypercoagulable state CVA, old, speech/language deficit Speech and language deficit, unspecified, late effect of cerebrovascular disease Hypercalcemia Vitamin D deficiency Unspecified vitamin D deficiency Iron deficiency anemia secondary to blood loss (chronic) Malaise and fatigue Other malaise and fatigue [facility] Diagnosis Vitamin D deficiency- Primary Unspecified vitamin D deficiency 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) Antiphospholipid antibody syndrome (HCC) Primary hypercoagulable state Malaise and fatigue Other malaise and fatigue [facility] Vitamin D deficiency- Primary Unspecified vitamin D deficiency 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) [facility]* 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 [facility]* Diagnosis Iron deficiency anemia of - Primary Anemia of mother, complicating , childbirth, or the puerperium, unspecified as to episode of care Iron deficiency anemia secondary to blood loss (chronic) [facility]* Diagnosis Iron deficiency anemia of - Primary Anemia of mother, complicating , childbirth, or the puerperium, unspecified as to episode of care Iron deficiency anemia secondary to blood loss (chronic) 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 Vitamin D deficiency Unspecified vitamin D deficiency Malaise and fatigue Other malaise and fatigue [facility]* Diagnosis Primary hypercoagulable state (HCC) Primary hypercoagulable state CVA, old, speech/language deficit Speech and language deficit, unspecified, 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 Hyposmolality and/or hyponatremia [facility] Diagnosis Missed menses , unspecified gestational age Encounter for supervision of normal first in first trimester Hypothyroidism (acquired) ([facility]/HCC) Unspecified hypothyroidism Low vitamin D level documented in this encounter [facility] note* Diagnosis 14 weeks gestation of Second trimester state, incidental Confirm viability with history of miscarriage, ultrasound Encounter for routine screening for malformation using ultrasonics documented in this encounter [facility] HealthcareEvaluation noteNo assessment information availableSelect [facility] Work Phone: Evaluation note* Diagnosis Primary hypercoagulable state (HCC)- Primary Primary hypercoagulable state CVA, old, speech/language deficit Speech and language deficit, unspecified, 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) Vitamin D deficiency Unspecified vitamin D deficiency Antiphospholipid antibody syndrome (HCC) Primary hypercoagulable state [facility] Follow-up visit after miscarriage Abnormal TSH History of thyroid disease documented in this encounter [facility] HealthcareEvaluation note* Diagnosis Vaginal bleeding Other specified noninflammatory disorder of vagina Dizziness Dizziness and giddiness Abnormal TSH Vaginal discharge Leukorrhea, not specified as infective Pelvic pain in female Unspecified symptom associated with female genital organs documented in this encounter [facility] HealthcareEvaluation note* Diagnosis Irregular menstrual cycle documented in this encounter [facility] HealthcareEvaluation note* Diagnosis Primary hypercoagulable state (HCC) Primary hypercoagulable state CVA, old, speech/language deficit Speech and language deficit, unspecified, 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 Hyposmolality and/or hyponatremia [facility] Diagnosis Antiphospholipid antibody positive- Primary Other and unspecified nonspecific immunological findings Iron deficiency anemia secondary to blood loss (chronic) Malaise and fatigue Other malaise and fatigue Vitamin D deficiency Unspecified vitamin D deficiency [facility]* Diagnosis Amenorrhea Absence of menstruation Missed menses , unspecified gestational age Encounter for supervision of normal first in first trimester Thyroid disease ([facility]/HCC) Unspecified disorder of thyroid documented in this encounter [facility] HealthcareEvaluation note* Diagnosis Gestational diabetes mellitus (GDM), antepartum, gestational diabetes method of control unspecified- Primary documented in this encounter [facility]* Diagnosis Primary hypercoagulable state (HCC) Primary hypercoagulable state CVA, old, speech/language deficit Speech and language deficit, unspecified, 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 Hyposmolality and/or hyponatremia documented [facility]* Diagnosis Primary hypercoagulable state (HCC)- Primary Primary hypercoagulable state CVA, old, speech/language deficit Speech and language deficit, unspecified, 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 Hyposmolality and/or hyponatremia Personal history of TIA (transient ischemic attack) Transient ischemic attack (TIA), and cerebral infarction without residual deficits [facility]* Diagnosis Second trimester (HHS-HCC) state, incidental 13 weeks gestation of ([facility]) Thyroid disease Unspecified disorder of thyroid Multigravida of advanced maternal age in second trimester ([facility]) Gestational diabetes mellitus (GDM), antepartum, gestational diabetes method of control unspecified([facility]) Elevated glucose tolerance test Impaired glucose tolerance test documented in this encounter [facility] HealthcareEvaluation note* Diagnosis Gestational diabetes mellitus (GDM), antepartum, gestational diabetes method of control unspecified- Primary documented in this encounter [facility] note* Diagnosis Second trimester (HHS-HCC) state, incidental 16 weeks gestation of ([facility]) Screening, , for anatomic survey ([facility]) Encounter for anatomic survey Vaginal discharge Leukorrhea, not specified as infective Sinus headache Headache [facility] Diagnosis Insulin controlled gestational diabetes mellitus (GDM) in second trimester- Primary documented in this encounter [facility] System[facility] note* Diagnosis 19 weeks gestation of (HHS-HCC) Second trimester (HHS-HCC) state, incidental Thyroid disease Unspecified disorder of thyroid Multigravida of advanced maternal age in second trimester (HHS-HCC) Gestational diabetes mellitus (GDM), antepartum, gestational diabetes method of control unspecified(HHS-HCC) [facility] Diagnosis Gestational diabetes mellitus (GDM) in second trimester controlled on oral hypoglycemic drug- Primary documented in this encounter [facility] note* Diagnosis Antiphospholipid antibody positive- Primary Other and unspecified nonspecific immunological findings Iron deficiency anemia secondary to blood loss (chronic) Vitamin D deficiency Unspecified vitamin D deficiency Primary hypercoagulable state (HCC) Primary hypercoagulable state [facility] Diagnosis Gestational diabetes mellitus (GDM) in second trimester controlled on oral hypoglycemic drug- Primary documented in this encounter [facility]* Diagnosis Multigravida of advanced maternal age in second trimester- Primary Antiphospholipid syndrome complicating , antepartum Gestational diabetes mellitus (GDM) in second trimester controlled on oral hypoglycemic drug Insulin controlled gestational diabetes mellitus (GDM) in second trimester AMA (advanced maternal age) multigravida 35+, second trimester Hypothyroidism, unspecified type documented in this encounter [facility]Evaluation note* Diagnosis 22 weeks [...] hyponatremia documented in this encounter [facility] note* Diagnosis Multigravida of [...] (GDM), antepartum, gestational diabetes method of control unspecified([facility]) Multigravida of advanced maternal age in second trimester ([facility]) H/O loss Lightheaded Dizziness and [...] (HHS-HCC) state, incidental 25 weeks gestation of ([facility]) Gestational diabetes mellitus (GDM), antepartum, gestational diabetes method of control unspecified([facility]) Anticoagulant long-term use Encounter for long-term (current) use of anticoagulants Antiphospholipid antibody positive Other and unspecified nonspecific immunological findings Antiphospholipid antibody syndrome ([facility]) Primary hypercoagulable state documented in this encounter [facility] HealthcareEvaluation [facility]* Diagnosis 27 weeks gestation of - Primary Multigravida of advanced maternal age in third trimester Gestational diabetes mellitus (GDM) in second trimester controlled on oral hypoglycemic drug Antiphospholipid syndrome complicating , antepartum Antiphospholipid syndrome Primary hypercoagulable state [facility] Diagnosis Third trimester (HHS-HCC) state, incidental 28 weeks gestation of ([facility]) Anemia complicating childbirth ([facility]) Anticoagulant long-term use Encounter for long-term (current) use of anticoagulants Antiphospholipid antibody positive Other and unspecified nonspecific immunological findings Blood pressure elevated without history of HTN Coagulation defect, unspecified ([facility]) documented in this encounter [facility] [...] Narrative No data available for this section [facility] Family Medicine [facility] Discharge instructions No data available for this section [facility]InstructionsNot on filedocumented in this encounter [facility] [...] be sent through Care Everywhere. * Preeclampsia ([place]) documented in [facility] encounter[facility] SystemInstructionsNot on file documented in this encounterProMedica Health SystemInstructionsNot on file documented in this encounterProMedica Health SystemInstructionsNot on file documented in this encounterProMedica Health SystemInstructionsNot on file documented in this encounterProMedica Health SystemInstructions* Attachments The following attachments cannot be sent through Care Everywhere. * Preeclampsia ([place]) documented in this encounterProMedica Health SystemInstructionsNot on file documented in this encounterProMedica Health SystemInstructionsNot on file documented in this encounterProMedica Health SystemInstructionsNot on file documented in this encounterProMedica Health SystemProgress note No data available for this section [facility]Reason [facility] referral (narrative) , pt reported hx of nasal polyps and deviated septum but never had surgery done Referred by: Shirlene YEBOAH, Lourdes Baltazar [facility] Primary Care Reason for visit Narrative* Consultation (Urgent) - Pending ReviewSpecialtyDiagnoses / ProceduresReferred By ContactReferred To ContactRheumatology Diagnoses 22 weeks gestation of Antiphospholipid syndrome complicating , antepartum Mukul Noyola MD [address] [facility], [address] [place] [id number] Phone: tel: fax: Sam Callahan MD MPH [address] [phone] Phone: tel: fax: Referral IDStatusReasonStart DateExpiration DateVisits RequestedVisits [id number] Review Specialty Services Required [facility] Summary Purpose Family History [...] a 30 minute post dose observation. Rate/Dose Zxpval9704/05/2022 2:44 PM ZSL967.67 mL/eaGaandxljb63/07/2022 2:25 PM XPH012 mL/hrNew Bag/Syringe/Vchrxh1704/05/2022 1:52 PM FKV004 mg166.67 mL/hr Medication OrderMAR ActionAction DateDoseRateSite iron sucrose 300 mg in NaCl 0.9% 250 mL (VENOFER) 300 mg, INTRAVENOUS, at 166.67 mL/hr, Administer over 90 Minutes, ONCE, 1 dose, On Christie 04/20/22 at 1400, Please conduct a 30 minute post dose observation. New Bag/Syringe/Vvlafh4704/20/2022 2:01 PM MDL902 mg166.67 mL/hr Additional Source Comments INFORMATION SOURCE (unrecogn ized section and content) DATE CREATED AUTHOR 10/22/2017 [facility] DATE CREATED AUTHOR AUTHOR'S ORGANIZ ATION 11/14/2017 [employer] DATE CREATED AUTHOR AUTHOR'S ORGANIZ ATION 06/18/2018 [facility] DATE CREATED AUTHOR AUTHOR'S ORGANIZ ATION 12/30/2021 [facility] DATE CREATED AUTHOR AUTHOR'S ORGANIZ ATION 06/09/2022 [facility] DATE CREATED AUTHOR AUTHOR'S ORGANIZ ATION 09/29/2023 [facility] DATE CREATED AUTHOR AUTHOR'S ORGANIZ ATION 12/03/2023 [facility] DATE CREATED AUTHOR AUTHOR'S ORGANIZ ATION 12/09/2023 [facility] DATE CREATED AUTHOR AUTHOR'S ORGANIZ ATION 12/10/2023 [facility] DATE CREATED AUTHOR AUTHOR'S ORGANIZ ATION 01/27/2024 [facility] DATE CREATED AUTHOR AUTHOR'S ORGANIZ ATION 02/24/2024 [facility] DATE CREATED AUTHOR AUTHOR'S ORGANIZ ATION 02/26/2024 [facility] DATE CREATED AUTHOR AUTHOR'S ORGANIZ ATION 02/28/2024 [facility] DATE CREATED AUTHOR AUTHOR'S ORGANIZ ATION 03/02/2024 [facility] DATE CREATED AUTHOR AUTHOR'S ORGANIZ ATION 03/03/2024 [facility] DATE CREATED AUTHOR AUTHOR'S ORGANIZ ATION 05/15/2024 [facility] DATE CREATED AUTHOR AUTHOR'S ORGANIZ ATION 05/17/2024 [facility] DATE CREATED AUTHOR AUTHOR'S ORGANIZ ATION 05/18/2024 [facility] DATE CREATED AUTHOR AUTHOR'S ORGANIZ ATION 05/19/2024 [facility] DATE CREATED AUTHOR AUTHOR'S ORGANIZ ATION 06/11/2024 [facility] DATE CREATED AUTHOR AUTHOR'S ORGANIZ ATION 06/17/2024 [facility] DATE CREATED AUTHOR AUTHOR'S ORGANIZ ATION 07/09/2024 [facility] DATE CREATED AUTHOR AUTHOR'S ORGANIZ ATION 07/12/2024 [facility] DATE CREATED AUTHOR AUTHOR'S ORGANIZ ATION 07/15/2024 [facility] DATE CREATED AUTHOR AUTHOR'S ORGANIZ ATION 08/24/2024 [facility] DATE CREATED AUTHOR AUTHOR'S ORGANIZ ATION 08/26/2024 [facility] DATE CREATED AUTHOR AUTHOR'S ORGANIZ ATION 09/01/2024 [facility] DATE CREATED AUTHOR AUTHOR'S ORGANIZ ATION 09/08/2024 [facility] DATE CREATED AUTHOR AUTHOR'S ORGANIZ ATION 09/11/2024 [facility] DATE CREATED AUTHOR AUTHOR'S ORGANIZ ATION 12/09/2024 [facility] DATE CREATED AUTHOR AUTHOR'S ORGANIZ ATION 01/18/2025 [facility] DATE CREATED AUTHOR AUTHOR'S ORGANIZ ATION 02/07/2025 [facility] DATE CREATED AUTHOR AUTHOR'S ORGANIZ ATION 02/13/2025 [facility] DATE CREATED AUTHOR AUTHOR'S ORGANIZ ATION 03/03/2025 [facility] DATE CREATED AUTHOR AUTHOR'S ORGANIZ ATION 03/11/2025 [facility] DATE CREATED AUTHOR AUTHOR'S ORGANOSEAS ATION 03/12/2025 [facility] Source Comments (unrecognize d section and content) In the event this informatio n is protected by the Federal Confidentiality of Alcohol and Drug Abuse Patient Records regulations: The Federal rules restrict any use of the information to criminally investigate or prosecute any alcohol or drug abuse patient.[facility]In the event this information is protected by the Federal Confidentiality of Alcohol and Drug Abuse Patient Records regulations: The Federal rules restrict any use of the information to criminally investigate or prosecute any alcohol or drug abuse patient.[facility] HospitalIn the event this information is protected by the Federal Confidentiality of Alcohol and Drug Abuse Patient Records regulations: The Federal rules restrict any use of the information to criminally investigate or prosecute any alcohol or drug abuse patient.[facility] HospitalIn the event this information is protected by the Federal Confidentiality of Alcohol and Drug Abuse Patient Records regulations: The Federal rules restrict any use of the information to criminally investigate or prosecute any alcohol or drug abuse patient.[facility] HospitalIn the event this information is protected by the Federal Confidentiality of Alcohol and Drug Abuse Patient Records regulations: The Federal rules restrict any use of the information to criminally investigate or prosecute any alcohol or drug abuse patient.[facility] HospitalIn the event this information is protected by the Federal Confidentiality of Alcohol and Drug Abuse Patient Records regulations: The Federal rules restrict any use of the information to criminally investigate or prosecute any alcohol or drug abuse patient.[facility] HospitalIn the event this information is protected by the Federal Confidentiality of Alcohol and Drug Abuse Patient Records regulations: The Federal rules restrict any use of the information to criminally investigate or prosecute any alcohol or drug abuse patient.[facility] HospitalIn the event this information is protected by the Federal Confidentiality of Alcohol and Drug Abuse Patient Records regulations: The Federal rules restrict any use of the information to criminally investigate or prosecute any alcohol or drug abuse patient.[facility] HospitalIn the event this information is protected by the Federal Confidentiality of Alcohol and Drug Abuse Patient Records regulations: The Federal rules restrict any use of the information to criminally investigate or prosecute any alcohol or drug abuse patient.[facility] HospitalIn the event this information is protected by the Federal Confidentiality of Alcohol and Drug Abuse Patient Records regulations: The Federal rules restrict any use of the information to criminally investigate or prosecute any alcohol or drug abuse patient.[facility] HospitalIn the event this information is protected by the Federal Confidentiality of Alcohol and Drug Abuse Patient Records regulations: The Federal rules restrict any use of the information to criminally investigate or prosecute any alcohol or drug abuse patient.[facility] HospitalIn the event this information is protected by the Federal Confidentiality of Alcohol and Drug Abuse Patient Records regulations: The Federal rules restrict any use of the information to criminally investigate or prosecute any alcohol or drug abuse patient.[facility] HospitalIn the event this information is protected by the Federal Confidentiality of Alcohol and Drug Abuse Patient Records regulations: The Federal rules restrict any use of the information to criminally investigate or prosecute any alcohol or drug abuse patient.[facility] HospitalIn the event this information is protected by the Federal Confidentiality of Alcohol and Drug Abuse Patient Records regulations: The Federal rules restrict any use of the information to criminally investigate or prosecute any alcohol or drug abuse patient.[facility] HospitalIn the event this information is protected by the Federal Confidentiality of Alcohol and Drug Abuse Patient Records regulations: The Federal rules restrict any use of the information to criminally investigate or prosecute any alcohol or drug abuse patient.[facility] HospitalIn the event this information is protected by the Federal Confidentiality of Alcohol and Drug Abuse Patient Records regulations: The Federal rules restrict any use of the information to criminally investigate or prosecute any alcohol or drug abuse patient.[facility] HospitalIn the event this information is protected by the Federal Confidentiality of Alcohol and Drug Abuse Patient Records regulations: The Federal rules restrict any use of the information to criminally investigate or prosecute any alcohol or drug abuse patient.[facility] HospitalIn the event this information is protected by the Federal Confidentiality of Alcohol and Drug Abuse Patient Records regulations: The Federal rules restrict any use of the information to criminally investigate or prosecute any alcohol or drug abuse patient.[facility] HospitalIn the event this information is protected by the Federal Confidentiality of Alcohol and Drug Abuse Patient Records regulations: The Federal rules restrict any use of the information to criminally investigate or prosecute any alcohol or drug abuse patient.[facility] HospitalIn the event this information is protected by the Federal Confidentiality of Alcohol and Drug Abuse Patient Records regulations: The Federal rules restrict any use of the information to criminally investigate or prosecute any alcohol or drug abuse patient.[facility] HospitalIn the event this information is protected by the Federal Confidentiality of Alcohol and Drug Abuse Patient Records regulations: The Federal rules restrict any use of the information to criminally investigate or prosecute any alcohol or drug abuse patient.[facility] HospitalIn the event this information is protected by the Federal Confidentiality of Alcohol and Drug Abuse Patient Records regulations: The Federal rules restrict any use of the information to criminally investigate or prosecute any alcohol or drug abuse patient.[facility] HospitalIn the event this information is protected by the Federal Confidentiality of Alcohol and Drug Abuse Patient Records regulations: The Federal rules restrict any use of the information to criminally investigate or prosecute any alcohol or drug abuse patient.[facility] HospitalIn the event this information is protected by the Federal Confidentiality of Alcohol and Drug Abuse Patient Records regulations: The Federal rules restrict any use of the information to criminally investigate or prosecute any alcohol or drug abuse patient.[facility] HospitalIn the event this information is protected by the Federal Confidentiality of Alcohol and Drug Abuse Patient Records regulations: The Federal rules restrict any use of the information to criminally investigate or prosecute any alcohol or drug abuse patient.[facility] HospitalIn the event this information is protected by the Federal Confidentiality of Alcohol and Drug Abuse Patient Records regulations: The Federal rules restrict any use of the information to criminally investigate or prosecute any alcohol or drug abuse patient.[facility] HospitalIn the event this information is protected by the Federal Confidentiality of Alcohol and Drug Abuse Patient Records regulations: The Federal rules restrict any use of the information to criminally investigate or prosecute any alcohol or drug abuse patient.[facility] HospitalIn the event this information is protected by the Federal Confidentiality of Alcohol and Drug Abuse Patient Records regulations: The Federal rules restrict any use of the information to criminally investigate or prosecute any alcohol or drug abuse patient.[facility] HospitalIn the event this information is protected by the Federal Confidentiality of Alcohol and Drug Abuse Patient Records regulations: The Federal rules restrict any use of the information to criminally investigate or prosecute any alcohol or drug abuse patient.[facility] HospitalIn the event this information is protected by the Federal Confidentiality of Alcohol and Drug Abuse Patient Records regulations: The Federal rules restrict any use of the information to criminally investigate or prosecute any alcohol or drug abuse patient.[facility] HospitalIn the event this information is protected by the Federal Confidentiality of Alcohol and Drug Abuse Patient Records regulations: The Federal rules restrict any use of the information to criminally investigate or prosecute any alcohol or drug abuse patient.[facility] HospitalIn the event this information is protected by the Federal Confidentiality of Alcohol and Drug Abuse Patient Records regulations: The Federal rules restrict any use of the information to criminally investigate or prosecute any alcohol or drug abuse patient.[facility] HospitalIn the event this information is protected by the Federal Confidentiality of Alcohol and Drug Abuse Patient Records regulations: The Federal rules restrict any use of the information to criminally investigate or prosecute any alcohol or drug abuse patient.[facility] HospitalIn the event this information is protected by the Federal Confidentiality of Alcohol and Drug Abuse Patient Records regulations: The Federal rules restrict any use of the information to criminally investigate or prosecute any alcohol or drug abuse patient.[facility] HospitalIn the event this information is protected by the Federal Confidentiality of Alcohol and Drug Abuse Patient Records regulations: The Federal rules restrict any use of the information to criminally investigate or prosecute any alcohol or drug abuse patient.[facility] HospitalIn the event this information is protected by the Federal Confidentiality of Alcohol and Drug Abuse Patient Records regulations: The Federal rules restrict any use of the information to criminally investigate or prosecute any alcohol or drug abuse patient.[facility] HospitalIn the event this information is protected by the Federal Confidentiality of Alcohol and Drug Abuse Patient Records regulations: The Federal rules restrict any use of the information to criminally investigate or prosecute any alcohol or drug abuse patient.[facility] HospitalIn the event this information is protected by the Federal Confidentiality of Alcohol and Drug Abuse Patient Records regulations: The Federal rules restrict any use of the information to criminally investigate or prosecute any alcohol or drug abuse patient.[facility] HospitalIn the event this information is protected by the Federal Confidentiality of Alcohol and Drug Abuse Patient Records regulations: The Federal rules restrict any use of the information to criminally investigate or prosecute any alcohol or drug abuse patient.[facility] HospitalIn the event this information is protected by the Federal Confidentiality of Alcohol and Drug Abuse Patient Records regulations: The Federal rules restrict any use of the information to criminally investigate or prosecute any alcohol or drug abuse patient.[facility] HospitalIn the event this information is protected by the Federal Confidentiality of Alcohol and Drug Abuse Patient Records regulations: The Federal rules restrict any use of the information to criminally investigate or prosecute any alcohol or drug abuse patient.[facility] HospitalIn the event this information is protected by the Federal Confidentiality of Alcohol and Drug Abuse Patient Records regulations: The Federal rules restrict any use of the information to criminally investigate or prosecute any alcohol or drug abuse patient.[facility] HospitalIn the event this information is protected by the Federal Confidentiality of Alcohol and Drug Abuse Patient Records regulations: The Federal rules restrict any use of the information to criminally investigate or prosecute any alcohol or drug abuse patient.[facility] HospitalIn the event this information is protected by the Federal Confidentiality of Alcohol and Drug Abuse Patient Records regulations: The Federal rules restrict any use of the information to criminally investigate or prosecute any alcohol or drug abuse patient.[facility] HospitalIn the event this information is protected by the Federal Confidentiality of Alcohol and Drug Abuse Patient Records regulations: The Federal rules restrict any use of the information to criminally investigate or prosecute any alcohol or drug abuse patient.[facility] HospitalIn the event this information is protected by the Federal Confidentiality of Alcohol and Drug Abuse Patient Records regulations: The Federal rules restrict any use of the information to criminally investigate or prosecute any alcohol or drug abuse patient.[facility] HospitalIn the event this information is protected by the Federal Confidentiality of Alcohol and Drug Abuse Patient Records regulations: The Federal rules restrict any use of the information to criminally investigate or prosecute any alcohol or drug abuse patient.[facility] HospitalIn the event this information is protected by the Federal Confidentiality of Alcohol and Drug Abuse Patient Records regulations: The Federal rules restrict any use of the information to criminally investigate or prosecute any alcohol or drug abuse patient.[facility] HospitalIn the event this information is protected by the Federal Confidentiality of Alcohol and Drug Abuse Patient Records regulations: The Federal rules restrict any use of the information to criminally investigate or prosecute any alcohol or drug abuse patient.[facility] HospitalIn the event this information is protected by the Federal Confidentiality of Alcohol and Drug Abuse Patient Records regulations: The Federal rules restrict any use of the information to criminally investigate or prosecute any alcohol or drug abuse patient.[facility] HospitalIn the event this information is protected by the Federal Confidentiality of Alcohol and Drug Abuse Patient Records regulations: The Federal rules restrict any use of the information to criminally investigate or prosecute any alcohol or drug abuse patient.[facility] HospitalIn the event this information is protected by the Federal Confidentiality of Alcohol and Drug Abuse Patient Records regulations: The Federal rules restrict any use of the information to criminally investigate or prosecute any alcohol or drug abuse patient.[facility] HospitalIn the event this information is protected by the Federal Confidentiality of Alcohol and Drug Abuse Patient Records regulations: The Federal rules restrict any use of the information to criminally investigate or prosecute any alcohol or drug abuse patient.[facility] HospitalIn the event this information is protected by the Federal Confidentiality of Alcohol and Drug Abuse Patient Records regulations: The Federal rules restrict any use of the information to criminally investigate or prosecute any alcohol or drug abuse patient.[facility] HospitalIn the event this information is protected by the Federal Confidentiality of Alcohol and Drug Abuse Patient Records regulations: The Federal rules restrict any use of the information to criminally investigate or prosecute any alcohol or drug abuse patient.[facility] Care Teams (unrecognized sec tion and content) Team MemberRelationshipSpecialtyStart DateEnd Date Humaira Gaviria MD [address] [place] [id number] PCP - GeneralInternal Medicine07/05/18 Jonny Wilcox MD [address] SERVICES[facility] [address] Primary Staff PhysicianCardiology07/16/18Team MemberRelationshipSpecialtyStart DateEnd Date Humaira Gaviria MD [address] [place] [address] PCP - GeneralInternal Medicine07/05/18 Jonny Wilcox MD [address] [place] [address] Primary Staff PhysicianCardiology07/16/18Team MemberRelationshipSpecialtyStart DateEnd Date Humaira Gaviria MD [address] [place] [address] PCP - GeneralInternal Medicine07/05/18 Jonny Wilcox MD [address] [place] [address] Primary Staff PhysicianCardiology07/16/18Team MemberRelationshipSpecialtyStart DateEnd Date Humaira Gaviria MD [address] [place] [address] PCP - GeneralInternal Medicine07/05/18 Jnony Wilcox MD [address] [place] [address] Primary Staff PhysicianCardiology07/16/18Team MemberRelationshipSpecialtyStart DateEnd Date Humaira Gaviria MD [address] [place] [address] PCP - GeneralInternal Medicine07/05/18 Jonny Wilcox MD [address] [place] [address] Primary Staff PhysicianCardiology07/16/18 [place] [address] [place] [address] PhysicianHematology/Oncology09/14/21 Davida Restrepo RN [address] [place] [address] Specialty Care CoordinatorHematology/Oncology09/14/21Team MemberRelationship SpecialtyStart DateEnd Date Penelope Casas [facility] [place] [address] PCP - GeneralFamily Medicine10/04/20Team MemberRelationshipSpecialtyStart DateEnd Date Humaira Gaviria MD [address] [place] [address] PCP - GeneralInternal Medicine3/8/19 Jonny Wilcox MD [address] [place] [address] Primary Staff PhysicianCardiology07/16/18 [place] [address] [place] [address] PhysicianHematology/Oncology09/14/21 Davida Restrepo, RN [address] [place] [address] Specialty Care CoordinatorHematology/Oncology09/14/21Te MemberRelationship SpecialtyStart DateEnd Date Penelope Casas, [address] [place] [address] PCP - GeneralFamily Xebeelzg85/3/22 Jonny Wilcox MD [address] [place] [address] Primary Staff PhysicianCardiology07/16/18 [place] [address] [place] [address] PhysicianHematology/Oncology09/14/21 Davida Restrepo, RN [address] [place] [address] Specialty Care CoordinatorHematology/Oncology09/14/21Te MemberRelationship SpecialtyStart DateEnd Date Penelope Casas DO [address] [place] [address] PCP - GeneralFamily Ztarsevu94/3/22 Jonny Wilcox MD [address] [place] [address] Primary Staff PhysicianCardiology07/16/18 [place] [address] [place] [address] PhysicianHematology/Oncology09/14/21 Davida Restrepo, RN [address] [place] [address] Specialty Care CoordinatorHematology/Oncology09/14/21Te MemberRelationship SpecialtyStart DateEnd Date Penelope Casas, DO [address] [place] [address] PCP - GeneralFamily [id number]/3/22 Jonny Wilcox MD [address] [place] [address] Primary Staff PhysicianCardiology07/16/18 [place] [address] [place] [address] PhysicianHematology/Oncology09/14/21 Davida Restrepo, RN [address] [place] [address] Specialty Care CoordinatorHematology/Oncology09/14/21Te MemberRelationship SpecialtyStart DateEnd Date Penelope Casas, DO [address] [place] [address] PCP - Generalmily Galafwic37/3/22 Jonny Wilcox MD [address] [place] [address] Primary Staff PhysicianCardiology07/16/18 [place] [address] [place] [address] PhysicianHematology/Oncology09/14/21 Davida Restrepo, RN [address] [place] [address] Specialty Care CoordinatorHematology/Oncology09/14/21Te MemberRelationship SpecialtyStart DateEnd [facility] Penelope Casas, DO [address] [place] [address] PCP - GeneralFamily Fgaseyil76/3/22 Jonny Wilcox MD [address] [place] [address] Primary Staff PhysicianCardiology07/16/18 [place] [address] [place] [address] PhysicianHematology/Oncology09/14/21 Davida Restrepo, RN [address] [place] [address] Specialty Care CoordinatorHematology/Oncology09/14/21Te MemberRelationship SpecialtyStart DateEnd [facility] Penelope Casas, DO [address] [place] [address] PCP - GeneralFamily Jamyvsnf01/3/22 Jonny Wilcox MD [address] [place] [address] Primary Staff PhysicianCardiology07/16/18 [place] [address] [place] [address] PhysicianHematology/Oncology09/14/21 Davida Restrepo, RN [address] [place] [address] Specialty Care CoordinatorHematology/Oncology09/14/21Te MemberRelationship SpecialtyStart DateChrist[facility] Penelope Casas, DO [address] [place] [address] PCP - GeneralFamily Ymmncmwj28/3/22 Jonny Wilcox MD [address] [place] [address] Primary Staff PhysicianCardiology07/16/18 [place] [address] [place] [address] PhysicianHematology/Oncology09/14/21 Davida Restrepo, RN [address] [place] [address] Specialty Care CoordinatorHematology/Oncology09/14/21Te MemberRelationship SpecialtyStart DateEnd Date Penelope Casas, [address] [address] PCP - GeneralFamily Xmhwkjiv33/3/22 Jonny Wilcox MD [address] [place] [address] Primary Staff PhysicianCardiology07/16/18 [place] [address] [place] [address] PhysicianHematology/Oncology09/14/21 Davida Restrepo, MARSHA [address] [place] [address] Specialty Care CoordinatorHematology/Oncology09/14/21Te MemberRelationship SpecialtyStart DateEnd Date Penelope Casas, DO [address] [place] [address] PCP - Generalmily Bwnncono18/3/22 Jonny Wilcox MD [address] [place] [address] Primary Staff PhysicianCardiology07/16/18 [place] [address] [place] [address] PhysicianHematology/Oncology09/14/21 Davida Restrepo RN [address] [place], [place] [address] Specialty Care CoordinatorHematology/Oncology09/14/21Team MemberRelationship SpecialtyStart DateEnd Date Penelope Casas DO [address] [place] [address] PCP - Generalmily Zjqcjfzh97/3/22 Jonny Wilcox MD [address] [place] [address] Primary Staff PhysicianCardiology07/16/18 [place] [address] [place] [address] PhysicianHematology/Oncology09/14/21 Davida Restrepo RN [address] [place] [address] Specialty Care CoordinatorHematology/Oncology09/14/21Te MemberRelationship SpecialtyStart DateEnd Date Penelope Casas DO [address] [place] [address] [facility] Trgczcyb44/3/22 Jonny Wilcox MD [address] [place] [address] Primary Staff PhysicianCardiology07/16/18 [place] [address] [place] [address] PhysicianHematology/Oncology09/14/21 aDvida Restrepo RN [address] [place] [address] Specialty Care CoordinatorHematology/Oncology09/14/21Team MemberRelationship Specialtyart DateEnd Penelope Casas DO [address] [place] [address] PCP - GeneralFamily Dkgndezb12/3/22 Jonny Wilcox MD [address] [place] [address] Primary Staff PhysicianCardiology07/16/18 [place] [address] [place] [address] PhysicianHematology/Oncology09/14/21 Davida Restrepo RN [address] [place] [address] Specialty Care CoordinatorHematology/Oncology09/14/21Te MemberRelationship SpecialtyStart DateEnd Date Penelope Casas DO [address] [place] [address] PCP - Generalmily Ioxzcsrr35/3/22 Jonny Wilcox MD [address] [place] [address] Primary Staff PhysicianCardiology07/16/18 [place] [address] [place] [address] PhysicianHematology/Oncology09/14/21 Davida Restrepo RN [address] [place] [address] Specialty Care CoordinatorHematology/Oncology09/14/21Team MemberRelationship SpecialtyStart DateEnd Date Penelope Casas DO [address] [facility] [place] [address] [facility]CP - [facility] Vbmkkbiu08/3/22 Jonny Wilcox MD [address] [place] [address] Primary Staff PhysicianCardiology07/16/18 [place] [address] [place] [address] PhysicianHematology/Oncology09/14/21 Davida Restrepo, RN [address] [place] [address] Specialty Care CoordinatorHematology/Oncology09/14/21Team MemberRelationship SpecialtyStart DateEnd Date Penelope Casas DO [address] [facility] [place] [address] PCP - [facility] Pfmxaziz71/3/22 Jonny Wilcox MD [address] [place] [address] Primary Staff PhysicianCardiology07/16/18 [place] [address] [place] [address] PhysicianHematology/Oncology09/14/21 Davida Restrepo RN [address] [place], [place] [id number] Specialty Care CoordinatorHematology/Oncology09/14/21Team MemberRelationship SpecialtyStart DateEnd Date Penelope Casas DO [address] [facility] [place] [address] PCP - Generalmily Aauiyxtk00/3/22 Jonny Wilcox MD [address] [place] [address] Primary Staff PhysicianCardiology07/16/18 [place] [address] [place] [address] PhysicianHematology/Oncology09/14/21 Davida Restrepo, RN [address] [place] [address] Specialty Care CoordinatorHematology/Oncology09/14/21Team MemberRelationship SpecialtyStart DateEnd Date Penelope Casas DO [address] [facility] [place] [place] [address] PCP - Generalmily Bacmhaxa58/3/22 Jonny Wilcox MD [address] [place] [address] Primary Staff PhysicianCardiology07/16/18 [place] [address] [place] [address] PhysicianHematology/Oncology09/14/21 Davida Restrepo, RN [address] [place] [address] Specialty Care CoordinatorHematology/Oncology09/14/21Team MemberRelationship SpecialtyStart DateEnd Date Penelope Casas DO [address] [facility] [place] [address] PCP - GeneralFamily Xgnzuzfs96/3/22 Jonny Wilcox MD [address] [place] [address] Primary Staff PhysicianCardiology07/16/18 [place] [address] [place] [address] PhysicianHematology/Oncology09/14/21 Davdia Restrepo, MARSHA [address] [place] [address] Specialty Care CoordinatorHematology/Oncology09/14/21Team MemberRelationship SpecialtyStart DateEnd Date Penelope Casas DO [address] [facility] [place] [address] PCP - Generalmily Jpvvdyqm89/3/22 Jonny Wilcox MD [address] [place] [address] Primary Staff PhysicianCardiology07/16/18 [place] [address] [place] [address] PhysicianHematology/Oncology09/14/21 Davida Restrepo RN [address] [facility] [place] [address] Specialty Care CoordinatorHematology/Oncology09/14/21Team MemberRelationship SpecialtyStart DateEnd Date Penelope Casas DO [address] [place] [address] PCP - GeneralFamily Qasoubbm76/3/22 Jonny Wilcox MD [address] [facility] [place] [address] Primary Staff PhysicianCardiology07/16/18 [place] [address] [place] [address] PhysicianHematology/Oncology09/14/21 Davida Restrepo RN [address] [facility] [address] Specialty Care CoordinatorHematology/Oncology09/14/21Team MemberRelationship SpecialtyStart DateEnd Date Penelope Casas DO [address] [place] [address] PCP - GeneralFamily Whbgrzvx11/3/22 Jonny Wilcox MD [address] [place] [address] Primary Staff PhysicianCardiology07/16/18 [place] [address] [place] [address] PhysicianHematology/Oncology09/14/21 Davida Restrepo RN [address] [facility] [address] Specialty Care CoordinatorHematology/Oncology09/14/21Te MemberRelationship SpecialtyStart DateEnd Date Penelope Casas DO [address] [facility] [place] [address] PCP - GeneralFamily Ejuodkea46/3/22 Jonny Wilcox MD [address] [place] [address] Primary Staff PhysicianCardiology07/16/18 [place] [address] [place] [address] PhysicianHematology/Oncology09/14/21 Davida Restrepo, MARSHA [address] [place] [address] Specialty Care CoordinatorHematology/Oncology09/14/21Team MemberRelationship SpecialtyStart DateEnd Date Penelope Casas DO [address] [facility] [place] [address] [facility] - [facility] Zhfhpaun59/3/22 Jonny Wilcox MD [address] [place] [address] Primary Staff PhysicianCardiology07/16/18 [place] [address] [place] [address] PhysicianHematology/Oncology09/14/21 Davida Restrepo RN [address] [place] [address] Specialty Care CoordinatorHematology/Oncology09/14/21Team MemberRelationship SpecialtyStart DateEnd Date Penelope Casas DO [address] [facility] [place] [address] PCP - GeneralFamily Nwjkssqs43/3/22 Jonny Wilcox MD [address] [place] [address] Primary Staff PhysicianCardiology07/16/18 [place] [address] [place] [address] PhysicianHematology/Oncology09/14/21 Davida Restrepo, RN [address] [place] [address] Specialty Care CoordinatorHematology/Oncology09/14/21Team MemberRelationship SpecialtyStart DateEnd Date Penelope Casas MD [address] [place] [address] PCP - GeneralFamily Medicine11/07/23Team MemberRelationshipSpecialtyStart DateEnd Date Penelope Casas MD [address] [place] [address] PCP - GeneralFamily Medicine11/07/23Team MemberRelationshipSpecialtyStart DateEnd Date Penelope Casas MD [address] [place] [address] PCP - Generalmily Medicine11/07/23Team MemberRelationshipSpecialtyStart DateEnd Date Penelope Casas MD [address] [place] [address] PCP - Generalmily Medicine11/07/23Team MemberRelationshipSpecialtyStart DateEnd Date Penelope Casas MD [address] [place] [address] PCP - Generalmily Medicine11/07/23 Team Status: Inactive Member Role Status Dates Wilton Herrmann DO Attending Provider Active Start : May 10, 2024 End: May 10, 2024Team MemberRelationshipSpecialtyStart DateEnd Date Penelope Casas DO [address] [place] [address] PCP - GeneralFamily Mqkpybab34/3/22 Jonny Wilcox MD [address] [place], [place] [address] Primary Staff PhysicianCardiology07/16/18 [place] [address] [place], [place] [address] PhysicianHematology/Oncology09/14/21 Davida Restrepo RN [address] [place], [place] [address] Specialty Care CoordinatorHematology/Oncology09/14/21Team MemberRelationship SpecialtyStart DateEnd Date Penelope Casas MD [address] [place] [id number] PCP - Generalmily Medicine11/07/23Team MemberRelationshipSpecialtyStart DateEnd Date Penelope Casas MD [address] [place] [address] PCP - Generalmily Medicine11/07/23Team MemberRelationshipSpecialtyStart DateEnd Date Penelope Casas MD [address] [place] [address] [facility] - [facility]Mon[facility]icsly Medicine11/07/23Team MemberRelationshipSpecialtyStart DateEnd Date Penelope Casas MD [address] [place] [address] PCP - GeneralFamily Medicine11/07/23Team MemberRelationshipSpecialtyStart DateEnd Date Penelope Casas DO [address] [place] [address] PCP - GeneralFamily Qnidnell02/3/22 Jonny Wilcox MD [address] [place] [address] Primary Staff PhysicianCardiology07/16/18 [place] [address] [place] [address] PhysicianHematology/Oncology09/14/21 Davida Restrepo, MARSHA [address] [place] [address] Specialty Care CoordinatorHematology/Oncology09/14/21Team MemberRelationship SpecialtyStart DateEnd Date Penelope Casas MD [address] [facility] [place] [address] PCP - GeneralFamily Medicine11/07/23Team MemberRelationshipSpecialtyStart DateEnd Date Penelope Casas MD [address] [facility] [place] [address] PCP - GeneralFamily Medicine11/07/23Team MemberRelationshipSpecialtyStart DateEnd Date Penelope Casas DO PCP - GeneralFamily Medicine07/07/19Team MemberRelationshipSpecialtyStart DateEnd Date Penelope Casas DO PCP - GeneralFamily Medicine07/07/19Team MemberRelationshipSpecialtyStart DateEnd Date Penelope Casas MD [address] [place] [address] PCP - GeneralFamily Medicine11/07/23Team MemberRelationshipSpecialtyStart DateEnd Date Penelope Casas DO PCP - GeneralFamily Medicine07/07/19Team MemberRelationshipSpecialtyStart DateEnd Date Penelope Casas DO PCP - GeneralFamily Medicine07/07/19Team MemberRelationshipSpecialtyStart DateEnd Date Penelope Casas DO [address] [facility] [place] [address] PCP - GeneralFamily Bltflicc50/3/22 Jonny Wilcox MD [address] [place] [address] Primary Staff PhysicianCardiology07/16/18 [place] [address] [place] [address] PhysicianHematology/Oncology09/14/21 Davida Restrepo, MARSHA [address] [place] [address] Specialty Care CoordinatorHematology/Oncology09/14/21Team MemberRelationship SpecialtyStart DateEnd Date Penelope Casas DO PCP - GeneralFamily Medicine07/07/19Team MemberRelationshipSpecialtyStart DateEnd Date Penelope Casas MD [address] [place] [address] PCP - GeneralFamily Medicine11/07/23Team MemberRelationshipSpecialtyStart DateEnd Date Penelope Casas MD [address] [place] [address] PCP - GeneralFamily Medicine11/07/23Team MemberRelationshipSpecialtyStart DateEnd Date Penelope Casas DO PCP - GeneralFamily Medicine07/07/19Team MemberRelationshipSpecialtyStart DateEnd Date Penelope Casas DO PCP - GeneralFamily Medicine07/07/19Team MemberRelationshipSpecialtyStart DateEnd Date Penelope Casas MD [address] [place] [address] PCP - GeneralFamily Medicine11/07/23Team MemberRelationshipSpecialtyStart DateEnd Date Penelope Casas MD [address] [place] [address] PCP - GeneralFamily Medicine11/07/23Team MemberRelationshipSpecialtyStart DateEnd Date Penelope Casas DO PCP - GeneralFamily Medicine07/07/19Team MemberRelationshipSpecialtyStart DateEnd Date Penelope Casas DO [address] [place] [address] PCP - GeneralFamily Svxxhnvb51/3/22 Jonny Wilcox MD [address] [place] [address] Primary Staff PhysicianCardiology07/16/18 [place] [address] [place], [place] [address] PhysicianHematology/Oncology09/14/21 Davida Restrepo, MARSHA [address] [place] [address] Specialty Care CoordinatorHematology/Oncology09/14/21Team MemberRelationship SpecialtyStart DateEnd Date Penelope Casas DO PCP - GeneralFamily Medicine07/07/19Team MemberRelationshipSpecialtyStart DateEnd Date Penelope Casas DO PCP - GeneralFamily Medicine07/07/19Team MemberRelationshipSpecialtyStart DateEnd Date Penelope Casas DO PCP - GeneralFamily Medicine07/07/19Team MemberRelationshipSpecialtyStart DateEnd Date Penelope Casas DO PCP - GeneralFamily Medicine07/07/19Team MemberRelationshipSpecialtyStart DateEnd Date Penelope Casas DO PCP - GeneralFamily Medicine07/07/19Team MemberRelationshipSpecialtyStart DateEnd Date Penelope Casas MD [address] [place] [address] PCP - GeneralFamily Medicine11/07/23Team MemberRelationshipSpecialtyStart DateEnd Date Penelope Casas DO PCP - GeneralFamily Medicine07/07/19Team MemberRelationshipSpecialtyStart DateEnd Date Penelope Casas DO PCP - GeneralFamily Medicine07/07/19Team MemberRelationshipSpecialtyStart DateEnd Date Penelope Casas DO PCP - GeneralFamily Medicine07/07/19Team MemberRelationshipSpecialtyStart DateEnd Date Penelope Casas MD [address] [place] [address] PCP - GeneralFamily Medicine11/07/23Team MemberRelationshipSpecialtyStart DateEnd Date Penelope Casas DO PCP - GeneralFamily Medicine07/07/19Team MemberRelationshipSpecialtyStart DateEnd Date Penelope Casas DO PCP - GeneralFamily Medicine07/07/19Team MemberRelationshipSpecialtyStart DateEnd Date Penelope Casas MD [address] [place] [address] PCP - GeneralFamily Medicine11/07/23Team MemberRelationshipSpecialtyStart DateEnd Date Penelope Casas MD [address] [place] [address] PCP - Generalmily Medicine11/07/23Team MemberRelationshipSpecialtyStart DateEnd Date Penelope Casas MD [address] [place] [address] PCP - Generalmily Medicine11/07/23Team MemberRelationshipSpecialtyStart DateEnd Date Penelope Casas MD [address] [place] [address] PCP - Generalmily Medicine11/07/23Team MemberRelationshipSpecialtyStart DateEnd Date Penelope Casas MD [address] [place] [address] PCP - Generalmily Medicine11/07/23Team MemberRelationshipSpecialtyStart DateEnd Date Penelope Casas MD [address] [place] [address] PCP - Generalmily Medicine11/07/23Team MemberRelationshipSpecialtyStart DateEnd Date Penelope Casas MD [address] [place] [address] PCP - Generalmily Medicine11/07/23Team MemberRelationshipSpecialtyStart DateEnd Date Penelope Casas MD [address] [facility] [place] [address] PCP - GeneralFamily Medicine11/07/23 Reason for Visit (unrecogniz ed section and content) ReasonCommentsFuture AppointmentReasonCommentsPatient QuestionReasonComments Medication QuestionReasonOnset DateCommentsRefill Cdcodhn72/13/2022ReasonOnset DateCommentsRefill Unipnff80/02/2022ReasonCommentsHypercoagulable state6 month follow upReasonCommentsPrimary hypercoagulable state8 week follow upReason CommentsResultsReasonCommentsAppointmentPatient QuestionMedication Question OrdersSpecialtyDiagnoses / ProceduresReferred By ContactReferred To Contact Diagnoses Iron deficiency anemia secondary to blood loss (chronic) Iron deficiency anemia of Procedures INJECTION, FERRIC DERISOMALTOSE, 10 MG Kristofer Calix MD [address] [place] [address] [place] [address] [employer] [employer] [address] [place] [address] Referral IDStatusKelseyasonYakima DateExpiration DateVisits RequestedVisits [id number] Request SpecialtyDiagnoses / ProceduresReferred By ContactReferred To Contact Diagnoses Iron deficiency anemia secondary to blood loss (chronic) Iron deficiency anemia of Procedures IRON SUCROSE INJECTION PER 1 MG Kristofer Calix MD [address] [place] [address] [place] [address] [employer] [address] [place] [address] Referral IDStatusKelseyasonStart DateExpiration DateVisits RequestedVisits [id number]/28/20221/1/[id number] DateCommentsRefill Ytbvnfw0907/03/2022ReasonCommentsAnemiaFollow upReasonCommentsOrdersReason CommentsEstablished PatientReasonCommentsAppointmentReasonCommentsLab Orders ReasonCommentsPrimary hypercoagulable state (HCC)Follow upReasonComments Appointment RescheduledSpecialtyDiagnoses / ProceduresReferred By Contact Referred To Contact Diagnoses Iron deficiency anemia of Iron deficiency anemia secondary to blood loss (chronic) Procedures IRON SUCROSE INJECTION PER 1 MG Kristofer Calix MD [address] [place] [address] [place] [address] [address] [place] [address] Referral IDStatusReasonStart DateExpiration DateVisits RequestedVisits [id number]/20241/[id number] DateCommentsRefill Jfflrsu1911/29/2023easonCommentsAmenorrheaReasonOnset DateCommentsRefill Request 4ReasonCommentsRoutine VisitReasonCommentsPatient UpdateReason CommentsAnemiafollowupReasonCommentsfollow up miscarriageReasonCommentsVaginal BleedingDizzinessReasonCommentsIrregular CyclesReasonOnset DateCommentsRefill Nazigwj3607/25/2024ReasonOnset DateCommentsRefill Rivgtpk5810/20/2024ReasonOnset DateCommentsRefill Jkwekve0810/29/2024ReasonCommentsGestational DiabetesSpecialty Diagnoses / ProceduresReferred By ContactReferred To ContactMaternal and Medicine Diagnoses Gestational diabetes mellitus (GDM), antepartum, gestational diabetes method of control unspecified Wilton Herrmann, DO [address] [place] [address] [place] [address] Phone: tel: fax: Maternal- Medicine at [facility] [address] [place] [address] Phone: tel: fax: Referral IDStatusReasonStart DateExpiration DateVisits RequestedVisits [id number] Review Specialty Services Required [id number]pbrpa stateAnemia8 week follow up ReasonCommentsMFM consultReasonCommentsRoutine VisitReasonComments [...] BE BASED ON THE PRIMARY CLINICAL RECORDS. [employer] [facility]. provides no warranty or guarantee of the accuracy or completeness of information in this document.
== END 2025-03-23 18:50 | disposition home or self-care (01) ==
LOC: FBCO 18:08 → FBC 18:10
PROVIDERS: Visit Provider Obstetrics & Gynecology
DX: O26.893 Other specified pregnancy related conditions, third trimester (principal); Z3A.34 34 weeks gestation of pregnancy
CPT/HCPCS: 59025

== ENCOUNTER 2025-03-25 19:12 | Outpatient (OUT) | payer MEDICAID, SELFPAY ==
--- OUTSIDE RECORDS SUMMARY | 2025-03-11 09:45 | XMS_ITS | Encounter Summary ---
Author Organization [facility] tem Address [id number] [address] [place] [address] Care Team Providers Care Unit Control Worker Name Role Phone Evans Casas DO Primary Care Provider Encounter Details DateTypeDepartmentCare Team (Latest Contact Info)Uimexutpbrs10/12/2025 9:45 AM ESTTelemedicine Maternal- Medicine at [facility] [address] [place] [phone] Sana Palma MD [address] [place] [address] Star Cortes MD [address] [facility], [address] [place] [address] Gestational diabetes mellitus (GDM) in second trimester controlled on oral hypoglycemic drug (Primary Dx); Antiphospholipid syndrome Social History Tobacco UseTypesPacks/DayYears UsedDateSmoking Tobacco: NeverSmokeless Tobacco: NeverAlcohol UseStandard Drinks/WeekCommentsNot Currently0 (1 standard drink = 0.6 oz pure alcohol)ChildcareAnswerDate MyjrwjdlNezjgmlivCeuggyf35/31/2019 EmploymentAnswerDate PprccgcwJytqbrayofQhmwrsg41/31/2019Hunger ScreeningAnswer Date RecordedWithin the past 12 months we worried whether our food would run out before we got money to buy more.Never True01/01/2025Within the past 12 months the food we bought just didn't last and we didn't have money to get more.Never True01/01/2025Purpose - LifeAnswerDate RecordedPurpose and direction in life Znayqmr40/11/2021Estimated Date of NjfzshzdOnipushoPsv39/05/2026Based on last menstrual period of 07/28/2024Sex and Gender InformationValueDate Recorded Sex Assigned at BirthNot on fileLegal FisEhjaaa60/31/2019 12:25 PM EDTGender IdentityNot on fileSexual OrientationNot [...] age) multigravida 35+ Antiphospholipid syndrome Hypothyroid Stroke ([facility]) Gestational diabetes mellitus (GDM) in second trimester [...] Anemia Antiphospholipid antibody syndrome Cerebral infarction, unspecified ([facility] 05/16/2019 Hypothyroid Migraine without aura and without status migrainosus, not intractable 09/12/2017 Stroke ([facility]) 2015 REVIEW OF SYSTEMS: Head and Neck: [...] allowing me to participate in [facility]. If there are any questions, please do not hesitate to call me. Sincerely, STAR CORTES MD Video Visit via Real-time Synchronous Audiovisual Provider Location: [facility] MATERNAL- MEDICINE AT [address] [address] Patient Location: Patient's home Patient Location Transportation Lead: None Video Visit Consent Statement: I discussed [...] that there are some limitations compared to qbdr-iy-eqvi evaluations. We elected to proceed. documented in this encounter Plan of Treatment DateTypeDepartmentCare Team (Latest Contact Info)Ljikzuhjinz86/09/2025 1:30 PM ESTTelemedicine Maternal- Medicine at [facility] [address] [place] [address] Davida Smith PA-C [address] [address] documented as of this encounter Visit Diagnoses Diagnosis Gestational diabetes mellitus (GDM) in second trimester controlled on oral hypoglycemic drug- Primary Antiphospholipid syndrome Primary hypercoagulable state documented in this encounter Care Teams Team MemberRelationshipSpecialtyStart DateEnd Date Evans Casas DO PCP - GeneralFamily Medicine07/07/19documented as of this encounter
--- OUTSIDE RECORDS SUMMARY | 2025-03-17 14:00 | XMS_ITS | Encounter Summary ---
Author Organization [facility] tem Address [id number] [address] [place] [address] Care Team Providers Care Supervisor Pipelines Name Role Phone Evans Casas DO Primary Care Provider [phone] Encounter Details DateTypeDepartmentCare Team (Latest Contact Info)Isnrbnqlkpy53/18/2025 2:00 PM ESTTelemedicine [facility], [facility] Department of [address] [address] Sam Callahan MD MPH [address] [place] [phone] Antiphospholipid syndrome complicating , antepartum (Primary Dx); Antiphospholipid syndrome; History of CVA (cerebrovascular accident); Coordination of complex care; 33 weeks gestation of Social History Tobacco UseTypesPacks/DayYears UsedDateSmoking Tobacco: NeverSmokeless Tobacco: NeverAlcohol UseStandard Drinks/WeekCommentsNot Currently0 (1 standard drink = 0.6 oz pure alcohol)ChildcareAnswerDate RqenxcglWjlhbnvuhEbolotr37/31/2019 EmploymentAnswerDate QswopekdKrhyhvgvmgXfzmiix63/31/2019Hunger ScreeningAnswer Date RecordedWithin the past 12 months we worried whether our food would run out before we got money to buy more.Never True01/01/2025Within the past 12 months the food we bought just didn't last and we didn't have money to get more.Never True01/01/2025Purpose - LifeAnswerDate RecordedPurpose and direction in life Nsyzvoa58/11/2021Estimated Date of UjckryrdAbbctvenCyp27/05/2026Based on last menstrual period of 07/28/2024Sex and Gender InformationValueDate Recorded Sex Assigned at BirthNot on fileLegal EyzZbjlpk53/31/2019 12:25 PM EDTGender IdentityNot on fileSexual OrientationNot on filedocumented as of this encounter Progress Notes * Sam Callahan MD MPH - 03/17/2025 2:00 PM EST Images from the original note were not included. Video Visit via Real-time Synchronous Audiovisual Provider Location: [facility], A DEPARTMENT OF [facility] R[facility]OLOGY, A DEPARTMENT OF [address] [address] Patient Location: Patient's home Patient Location [place]: None Video Visit Consent Statement: I discussed [...] that there are some limitations compared to wyhv-ti-lwrx evaluations. We elected to proceed. ADULT RHEUMATOLOGY CLINIC NOTE [address] [place] [phone] Patient Name: Sanna Boen Subjective Reason for Rheumatology Consultation: 22 weeks [...] following with two outside specialists (Neurology at [facility] and Hematology at [facility]) for management of her APS. The patient [...] health issues unclear exact diagnoses Note from [facility] Provider (Dr. Medina): Recent note from Neurologist: Interval Hx: The patient presents virtually for a follow up visit. [facility] and note that her NASEEM [...] Anemia Antiphospholipid antibody syndrome Cerebral infarction, unspecified ([facility]) 05/16/2019 Hypothyroid Migraine without aura and without status migrainosus, not intractable 09/12/2017 Stroke ([facility]) 2016 reviewed. Social History Social History Narrative [...] weeks . She is currently following with [facility] for her , neurology through the [employer] system, and hematology through [facility]. Based on extensive review of her outside [...] also had our staff [facility] [...] and immunizations. Follow-up: -FITO Callahan MD, MPH [facility] [address] [place] [phone] Total time spent was 45 minutes: Preparing to see the patient (e.g., review of tests) Obtaining and/or reviewing separately obtained history Performing a medically appropriate examination and/or evaluation Counseling and educating the patient/family/caregiver Referring and communicating with other health cardiac care unit nurse (not separately reported) Documenting clinical information in [...] Plan of Treatment DateTypeDepartmentCare Team (Latest Contact Info)Zlpemllqymd75/09/2025 1:30 PM ESTTelemedicine Maternal- Medicine at [facility] [address] [place] [address] Davida Smith PA-C [address] [address] documented as of this encounter Visit Diagnoses [...]
--- OUTSIDE RECORDS SUMMARY | 2025-03-25 11:10 | XMS_ITS | Encounter Summary ---
Author Organization [facility] Address [address] [facility], [place] [address] Care Team Providers Care Drywall Metal Stud Worker Name Role Phone Evans Casas MD Primary Care Provider [phone] Reason for Visit * ReasonCommentsRoutine Visit Encounter Details DateTypeDepartmentCare Team (Latest Contact Info)Qysyidroimp00/26/2025 11:10 AM ESTRoutine [facility] [address] [place] [address] Wilton Herrmann DO [address] [place] [address] Third trimester ([facility]); 34 weeks gestation of ([facility]); Anemia complicating childbirth ([facility]); Anticoagulant long-term use; Antiphospholipid antibody positive; Antiphospholipid antibody syndrome ([facility]); Thyroid disease Social History Tobacco UseTypesPacks/DayYears UsedDateSmoking Tobacco: NeverSmokeless Tobacco: NeverAlcohol UseStandard Drinks/WeekCommentsNever0 (1 standard drink = 0.6 oz pure alcohol)PHQ-2AnswerDate RecordedPatient Health Questionnaire-2 Score0 03/03/2025Estimated Date of UxmxtecyLqijeeywFcl81/05/2026ased on last menstrual period of 07/28/2024Sex and Gender InformationValueDate RecordedSex Assigned at BirthNot on fileLegal BfaJkfukv08/15/2023 11:19 PM EDTGender IdentityNot on fileSexual OrientationNot on filedocumented as of this encounter Last Filed Vital Signs Vital SignReadingTime TakenCommentsBlood Hjdmlsvl439/7211/ 11:25 AM EST Pulse--Temperature--Respiratory Rate--Oxygen Saturation--Inhaled Oxygen Concentration--Rozbgc70.9 kg (211 lb 8 oz)03/25/2025 11:25 AM [...] Noted 32 weeks gestation of ([facility]) 11/28/2019 Abdominal pain 06/12/2023 Acute bronchitis due to infection 06/12/2023 Acute on chronic vesicular eczema of hands and feet 11/15/2023 Anemia complicating childbirth ([facility]) 01/16/2020 Anticoagulant long-term use 02/22/2020 Antiphospholipid antibody positive 09/10/2017 Antiphospholipid antibody syndrome ([facility]) 07/07/2019 Anxiety 06/12/2023 Blood pressure elevated without history of HTN 11/15/2023 BMI 37.0-37.9, adult 11/15/2023 Cerebral infarction, unspecified ([facility]) 05/16/2019 Cerebrovascular accident (CVA) due to stenosis of middle cerebral artery ([facility]) 02/22/2020 Cervicalgia 02/05/2019 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 ([facility]) 01/08/2020 Coagulation defect, unspecified ([facility]) 02/05/2019 Cold intolerance 11/15/2023 Deficiency of other specified B group vitamins 05/16/2019 Deviated septum 11/15/2023 Dizziness and giddiness 02/05/2019 Dry mouth 11/15/2023 Dysfunction of eustachian tube 06/12/2023 Dyspnea 06/12/2023 Elevated blood pressure reading 11/15/2023 Encounter for supervision of normal , unspecified, first trimester ([facility]) 05/29/2019 Environmental allergies 11/15/2023 Fatigue 12/29/2016 First degree perineal laceration during delivery ([facility]) 01/16/2020 Frequency of micturition 02/19/2019 Genitourinary symptoms 08/19/2021 Gestational diabetes mellitus (GDM), antepartum ([facility]) 01/26/2022 H/O: hypothyroidism 11/15/2023 Hematochezia 06/12/2023 History [...] Irregular uterine bleeding 11/15/2023 problem ([facility]) 06/12/2023 Less than 8 weeks gestation of ([facility]) 06/05/2019 joint terminal attack controller (current) use of 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/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 02/05/2019 Migraine without aura and without status migrainosus, not intractable 09/12/2017 Morbid obesity ([facility]) 11/15/2023 Muscle fasciculation 08/19/2021 Nasal polyps 11/15/2023 Non-smoker 11/15/2023 NEETA (obstructive sleep apnea) 11/15/2023 Other acute postprocedural pain 02/03/2019 Other general symptoms and signs 10/28/2019 Other immediate hemorrhage ([facility]) 01/16/2020 Other specified noninflammatory disorders of vagina 02/21/2019 Pain in joint 12/29/2016 Palpitations 08/26/2019 Paresthesia of bilateral legs 11/15/2023 Pelvic and perineal pain 02/01/2019 Personal history of urinary (tract) infections 01/16/2020 Pre-diabetes 11/15/2023 Primary hypercoagulable state ([facility]) 08/01/2022 Pruritus, unspecified 01/02/2020 Psychogenic hyperventilation 06/12/2023 Raised antibody titer 09/25/2017 Right lower quadrant pain 11/15/2023 Right otitis externa 11/15/2023 Salivary gland swelling 11/15/2023 Single live ([facility]) 01/15/2020 Snoring 11/15/2023 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) 12/30/2019 Suspected severe acute respiratory syndrome coronavirus 2 (SARS-CoV-2) infection 06/12/2023 SVT (supraventricular tachycardia) ([facility]) 08/26/2019 Syncope and collapse 06/03/2018 [...] drainage of cyst WISDOM TOOTH EXTRACTION 2007 [place] teeth REVIEW OF SYSTEMS Review of Systems: [...] note reviewed. Exam conducted with a director community health nursing present. Vitals: Estimated body mass index is 34.14 kg/m?? as calculated from the following: Height as of 11/19/23: 5' 6 . Weight as of this encounter: 211 lb 8 oz. BP: 118/72 Patient's last menstrual period was 07/28/2024. Assessment/Plan ICD-10-CM 1. Third trimester ([facility]) Z34.93 POCT urinalysis dipstick manually resulted 2. 34 weeks gestation of ([facility]) Z3A.34 3. Anemia complicating childbirth ([facility]) O99.02 4. Anticoagulant long-term use Z79.01 5. Antiphospholipid antibody positive R76.0 6. Antiphospholipid antibody syndrome ([facility]) D68.61 7. Thyroid disease E07.9 Assessment/Plan Return [...] Plan of Treatment DateTypeDepartmentCare Team (Latest Contact Info)Lcmpyvavlxx89/10/2025 1:40 PM ESTRoutine [facility] [address] [place] [address] Wilton Herrmann DO [address] [place], [place] [id number] 04/15/2025 1:50 PM ESTRoutine [facility] [address] [place] [address] Wilton Herrmann, [address] [place] [id number] documented as of this encounter Procedures Procedure NamePriorityDate/TimeAssociated DiagnosisCommentsPOCT URINALYSIS JJPCFROHDzywrys11/26/2025 11:31 AM EST Third trimester ([facility]) documented [...] Date Evans Casas MD [address] [place] [address] PCP - GeneralFamily Medicine11/07/23documented as of this encounter
--- NOTE | 2025-03-25 19:17 | US_ITS ---
[place] [id number] Patient Name: MADHU RENDON MRN: [id number] date: 1985 Sex: F Assigned Patient Location: [facility] Current Patient Location: Accession/Order Number: [id number] Exam Date: 03/25/2025 19:22 Report Date: 03/25/2025 20:58 At the request of: MYA MASSEY DO Procedure: US OB BPP w non-stress Ultrasound biophysical profile INDICATION: Third trimester COMPARISON: 03/19/2025 FINDINGS AND IMPRESSION: Fetus in breech presentation. heart rate 130 beats per minutes. SARAHI measuring 11.1 cm. Biophysical profile 12/05. Impression dictated by: Mert Estrada M.D. 03/25/2025 8:58 PM Dictation Location: [place] [address] Electronically authenticated by: [id number] Y Date: 03/25/2025 20:58
--- OUTSIDE RECORDS SUMMARY | 2025-03-25 19:17 | XMS_ITS | Encounter Summary ---
Author Organization [facility] tem Address [facility] [address] [place] [address] Care Team Providers Care Unix Architect Name Role Phone Evans Casas DO Primary Care Provider [phone] Encounter Details DateTypeDepartmentCare Team (Latest Contact Info)Qifgsvgwkjs38/12/2025Travel Social History Tobacco UseTypesPacks/DayYears UsedDateSmoking Tobacco: NeverSmokeless Tobacco: NeverAlcohol UseStandard Drinks/WeekCommentsNot Currently0 (1 standard drink = 0.6 oz pure alcohol)ChildcareAnswerDate RbamkgohQiitbxcqlTowqagl16/31/2019 EmploymentAnswerDate IzritfubIodldguyqoAuibssz51/31/2019Hunger ScreeningAnswer Date RecordedWithin the past 12 months we worried whether our food would run out before we got money to buy more.Never True01/01/2025Within the past 12 months the food we bought just didn't last and we didn't have money to get more.Never True01/01/2025Purpose - LifeAnswerDate RecordedPurpose and direction in life Tdfvxmc66/11/2021Estimated Date of QlpywdogJyfpccmxFbs55/05/2026Based on last menstrual period of 07/28/2024Sex and Gender InformationValueDate Recorded Sex Assigned at BirthNot on fileLegal QdfMaybip61/31/2019 12:25 PM EDTGender IdentityNot on fileSexual OrientationNot on filedocumented as of this encounter Plan of Treatment DateTypeDepartmentCare Team (Latest Contact Info)Khbqgijrbxn17/09/2025 1:30 PM ESTTelemedicine Maternal- [facility] at [facility] [address] [place] [address] Davida Smith, PAPilyC [address] [address] documented as of this encounter Visit Diagnoses Not on filedocumented in this encounter Care Teams Team MemberRelationshipSpecialtyStart DateEnd Date Evans Casas DO PCP - GeneralFamily Medicine07/07/19documented as of this encounter
--- OUTSIDE RECORDS SUMMARY | 2025-03-25 19:17 | XMS_ITS | Encounter Summary ---
Author Organization [facility] Address [address] [address] [place] [address] Care Team Providers Care Social Media Executive Name Role Phone Evans Casas MD Primary Care Provider Encounter Details DateTypeDepartmentCare Team (Latest Contact Info)Awodnxbdkzt96/20/2025linisync Result Encounter [facility] External Department Unsolicited Mya Herrmann DO [address] [place], [facility] Social History Tobacco UseTypesPacks/DayYears UsedDateSmoking Tobacco: NeverSmokeless Tobacco: NeverAlcohol UseStandard Drinks/WeekCommentsNever0 (1 standard drink = 0.6 oz pure alcohol)PHQ-2AnswerDate RecordedPatient Health Questionnaire-2 Score0 03/03/2025Estimated Date of MymuoltoBihqqancWvn06/05/2026Based on last menstrual period of 07/28/2024Sex and Gender InformationValueDate RecordedSex Assigned at BirthNot on fileLegal DwyKpwpgh80/15/2023 11:19 PM EDTGender IdentityNot on fileSexual OrientationNot on filedocumented as of this encounter Plan of Treatment DateTypeDepartmentCare Team (Latest Contact Info)Jxwmgwkkbzw22/10/2025 1:40 PM ESTRoutine [facility] [address] [place] [phone] Mya Herrmann DO [address] [place] [address] 04/15/2025 1:50 PM ESTRoutine [facility] [place] [facility] [address] [facility] [phone] Mya Herrmann, DO [address] [facility] [address] [place] [address] documented as of this encounter Procedures Procedure NamePriorityDate/TimeAssociated DiagnosisCommentsUS OB BPP W NON-SUURKA2603/19/2025 11:51 PM EST documented in this encounter Results * US OB BPP W NON-STRESS (03/19/2025 11:51 PM EST)Anatomical Region LateralityModalityOtherSpecimen (Source)Anatomical Location / Laterality Collection Method / VolumeCollection TimeReceived Time03/19/2025 11:51 PM EST Narrative 03/19/2025 11:[address] [facility] ?[address] ? [place] [address] ? Ultrasound Report ? Signed ? Patient: SANNA RENDON ?MR#: [id number] ?? : 1985 ?Acct:[id number] ?? Age/Sex: 39 / F ?ADM Date: 03/19/25 ?? Loc: US ? Attending Dr: Mya Herrmann D.O. ? Ordering Physician: Mya Herrmann D.O. ?? Date of Service: 03/19/25 ?? Procedure(s): US OB BPP w non-stress ?? Accession Number(s): [id number] ? cc: Mya Herrmann D.O.; Physician,Non-Staff M.D. ? [facility] ? [address] ? [place] [address] ? Patient Name: ?? SANNA RENDON ? MRN: [id number] ? date: 1985 ?Sex: F ?? Assigned Patient Location: [facility] ?? Current Patient Location: ? Accession/Order Number: [id number] ?? Exam Date: 03/19/2025 ??19:20 ?Report Date: [...] M.D. ??03/19/2025 11:51 PM ? Dictation Location: [place] [address] ? Electronically authenticated by: [id number] ??Y ?? Date: 03/19/2025 ??23:51 ? Dictated By: ?Robert Beltrán D.O. ? Signed By: ?03/19/25 2353 ? DD/ 2351 ? TD/TT: ? Executive Consultant: Procedure Note Radiology, Radiologist, - 03/19/2025 [place] [address] Ultrasound Report Signed Patient: SANNA RENDON [facility]#: [id number] : 1985Acct:[id number] Age/Sex: 39 / FADM Date: 03/19/25 Loc: US Attending Dr: Mya Herrmann D.O. Ordering Physician: Mya Herrmann D.O. Date of Service: 03/19/25 Procedure(s): US OB BPP w non-stress Accession Number(s): [id number] cc: Mya eHrrmann D.O.; Physician,Non-Staff M.DLazara The [address] [address] Patient Name: SANNA RENDON MRN: [id number] date: 1985 Sex: F Assigned Patient Location: [facility] Current Patient Location: Accession/Order Number: [id number] Exam Date: 03/19/2025 19:20 Report Date: 03/19/2025 [...] Beltrán M.D. 03/19/2025 11:51 PM Dictation Location: [place] [address] Electronically authenticated by: [id number] Y Date: 3:51 Dictated By: Robert Beltrán D.O. Signed By:03/19/252352 DD/ 50 TD/TT: Executive Consultant: Authorizing ProviderResult TypeResult StatusCorey Montez DOCLINISYNC IMAGINGFinal Result documented in this encounter Visit Diagnoses Not on filedocumented in this encounter Care Teams Team MemberRelationshipSpecialtyStart DateEnd Date Evans Casas MD [address] [place] [address] PCP - GeneralFamily Medicine11/07/23documented as of this encounter
--- OUTSIDE RECORDS SUMMARY | 2025-03-25 19:17 | XMS_ITS | CCD ---
Author Organization [facility] Care Team Providers Care Lining Finisher Name Role Phone CROW MONGE Unavailable Unavailable BIBI CHIRSTY Unavailable Unavailable ERIKA LONDON Attending Unavailab ERIKA Haddad Referring Unavailab Haseeb Chavez Attending Unavailable Crow Monge Referring Unavailable Humaira Gaviria MD Primary Care Provider [phone] Jonny Wilcox MD Unavailable [phone] Penelope CASAS Primary Care Physician [phone] Cheri Norwood Unavailable Unavailable Cosmo Elliott MD Unavailable Lauro RN, Davida Unavailable Penelope Casas Primary Care Provider [phone] PENELOPE CASAS Primary Care Unavailable PERVÍCTOR, FALGUNI C Referring Unavailable Humaira Gaviria MD Primary Care Provider Jonny Wilcox MD Unavailable Cosmo Elliott MD R Unavailable Lauro RN, Davida Unavailable [phone] Penelope Casas DO Primary Care Provider Jonny Wilcox MD P Unavailable [phone] Cosmo Elliott MD R Unavailable [phone] Lauro RN, Davida Unavailable [phone] Penelope Casas DO Primary Care Provider [...] Unavailable MONTEZ, DR ROQUE Primary Care Unavailable ROSSVILLE, DR ANGIE Luna Consulting Unavailable MONTEZ, DR [...] DR ROQUE Consulting Unavailable MONTEZ, DR ROUQE Attending Unavailable MONTEZ, DR ROQUE Admitting Unavailable [...] Admitting Unavailable Romulo Chiu Attending Unavailable Penelope ACSAS Attending Unavailable MONTEZ, Wilton R Attending Unavailable [...] Unavailable PENELOPE CASAS Primary Care Unavailable MUKUL ONYOLA Attending Unavailable MONTEZ, WILTON R Referring Unavailable PENELOPE CASAS Primary Care Unavailable MONTEZ, WILTON R Referring Unavailable PENELOPE CASAS Primary Care Unavailable Penelope Casas MD Primary Care Provider [phone] MONTEZ, Wilton R Admitting Unavailable MONTEZ, Wilton [...] Care Unavailable CHARLES CORTES Attending Unavailable MONTEZ, WILOTN R Referring Unavailable KAPLE, PENELOPE A Primary Care Unavailable Allergies Allergy ClassificationReported Allergen(s)Allergy TypeDate of OnsetReaction(s) Facility (20 sources)Ciprofloxacin; Translations: [ciprofloxacin]Drug Ylgavow48-21-9240 Other: See Comments, Unknown, Numbness and tingling sensation of skin (finding), Nausea (finding), Other (See Comments), GI [facility], [facility] Work [facility]: (20 sources)Ciprofloxacin / fluocinolone; Translations: [CIPROFLOXACIN-FLUOCINOLONE]Drug Kgwjkuq94-98-9586Qhnwe: See CommentsAdena [facility] Center (20 sources)cow milk allergenic extract; Translations: [MILK]Drug Allergy 95-58-1489Awocf: See [facility] Work Phone: (20 sources)Lactalbumin; Translations: [LACTALBUMIN]Drug Cdookih47-59-6402 Unknown, GI Upset, Other (See Comments)[facility] (20 sources)Lactose; Translations: [LACTOSE]Drug Igghjdc98-13-9860MJ Upset, GI DisturbanceAdena [facility]ayette Medical Center (20 sources)MilkDrug Nntbkah71-90-8387Pxbve: See Comments, Other (See Comments) [facility] (6 sources)PenicillinsDrug Ivmraqm20-93-0275EcwpgyhLhetcylbo Clinic (20 sources)Seasonal allergy; Translations: [SEASONAL ALLERGIES]Allergy to arwkiudtl46-92-0936ET Upset, Other: See [facility] Work Phone: (20 sources)Milk Products; Translations: [Milk Products]Drug allergyIllness (finding)[facility] (20 sources)Ciprofloxacin / fluocinoloneDrug Yxsosfu61-50-9791Utpnt (See Comments)[employer] Work Phone: (1 source)Seasonal allergyPropensity to adverse reactions to rwcvpeaos89-15-4817 Other (See Comments)[employer] Work Phone: (1 source)Milk-Related CompoundsPropensity to adverse reactions to drug 19-26-6376Okjrx (See Comments)[employer] Work Phone: (2 sources)PenicillinsDrug Qpbrmpt11-52-4978OcnlyziDrxvmcxrk Clinic (1 source)CiprofloxacinDrug Xzvsopu51-11-2361[facility]Henry [facility] (20 sources)Lactose (non-medical use)Propensity to adverse iehpnuyrb05-42-1083 [facility] (20 sources)Lactose (non-medical use)Drug Rpkuzcr51-08-1456[facility] (20 sources)OctacosanolDrug Deuwzhdulyd11-95-5120[facility] (20 sources)OtherAllergy to dlrscqifi88-14-6626SkkogIEOM [facility] Work Phone: (3 sources)MILK CONTAINING PRODUCTS (DAIRY); Translations: [MILK CONTAINING PRODUCTS (DAIRY)]Propensity to adverse reactions to drug (disorder)05-25-2017 [facility] Medications Current Medications MedicationDrug Class(es)DatesSig (Normalized)Sig (Original)acetaminophen 300 mg / codeine phosphate 30 mg oral tablet (1 source)Opioid AgonistStart: 02-21-5665ucvinnhfbymkz-codeine (TYLENOL #3) 300- 30 MG per tabletAlbuterol (Eqv-ProAir HFA) 90 mcg/inh inhalation aerosol (6 sources)Start: 66-60-2213kidw 2 puff(s) by inhalation every six hours Albuterol (Eqv-ProAir HFA) 90 mcg/inh inhalation aerosol 2 puff(s), Inhalation, q6hr, 1 EA, Refill(s) 5, [facility], 168, cm, 02/02/24 14:43:00 EDT, Height/Length Dosing, 101.1, kg, 02/02/24 14:43:00 EDT, Weight Dosing Start Date: 02/02/24 Status: Orderedazithromycin 250 mg oral tablet (20 sources)Macrolide AntimicrobialStart: 09-08-2024 End: 91-90-5612vsaqirebdqip (Zithromax Z-Jonny) 250 MG tablet Indications: 5 weeks gestation of ([facility]) As directed 6 tablet 09/08/2024 10/30/2024 Discontinued (Therapy completed)Start: 06-19-2024 End: 50-12-2524Vytuhsnqq 250 mg Tab = 1 packet(s), Oral, As Directed, as directed on package labeling, X 5 day(s),# 6 tab(s), Refills(s) 1, Pharmacy: [facility], 168, cm, 06/09/24 14:03:00 EST, Height/Length Dosing, 98.4, kg, 06/19/24 16:19:00 EST, Weight Dosing Start Date: 06/19/24 Stop Date: 06/29/24 Status: OrderedStart: 04-21-2024 End: 35-56-2723ppfkylsbtjaa (Zithromax Z-Jonny) 250 MG tablet Indications: Upper respiratory tract infection, unspecified type As directed 6 tablet 04/21/2024 05/06/2024 Discontinuedazithromycin 250 mg Tab 5-day Dose Pack (Z-Jonny) (2 sources)Start: 02-02-2024 End: 56-76-8019ounshyqpwvzt 250 mg Tab 5-day Dose Pack (Z-Jonny) = 1 packet(s), Oral, As Directed, as directed on package labeling, X 5 day(s), # 6 tab(s), Refills(s) 0, Pharmacy: [facility], 168, cm, 02/02/24 14:43:00 EDT, Height/Length Dosing, 101.1, kg, 02/02/24 14:43:00 EDT, Weight Dosing Start Date:02/02/24 Stop Date: 02/07/24 Status: OrderedBlood Glucose Monitoring Suppl (D-Care Glucometer) w/Device kit (20 sources)Start: 10-30-2024 End: 20-13-7266Ruiww Glucose Monitoring Suppl (D-Care Glucometer) w/Device kit Indications: Second trimester ([facility]) , 13 weeks gestation of ([facility]) , Multigravida of advanced maternal age in second trimester ([facility]) , Gestational diabetes mellitus (GDM), antepartum, gestational diabetesmethod of control unspecified ([facility]) , Elevated glucose tolerance test 1 kit Daily Use four times daily to check FSBS. In the morning prior to breakfast & 1 hour after each meal for a total wt9ngbjq daily. 1 kit 10/30/2024 10/30/2025 Activeblood-glucose meter (BLOOD GLUCOSE MONITORING) kit (20 sources)blood-glucose meter (BLOOD GLUCOSE MONITORING) kit 1 each by other route in the morning. Use to check blood sugar 4 times daily . Activeblood- glucose sensor (FREESTYLE JENIFER 3 PLUS SENSOR) device (13 sources)Start: 35-60-9391qqcw 2 doses by mouth onceblood-glucose sensor (FREESTYLE JENIFER 3 PLUS SENSOR) device Indications: Gestational diabetes mellit us (GDM) in second trimester controlled on oral hypoglycemic drug Wear for 15 days and change 2 each 6 12/26/2024 Activecephalexin 500 mg oral tablet (20 sources)Cephalosporin AntibacterialStart: 08-19-2021 End: 87-61-0367wjlh 1 tablet by mouth twice dailycephalexin 500 mg oral tablet 500 mg = 1 tab(s), Oral, BID, X 10 day(s), # 20 tab(s), Refills(s) 0,Pharmacy: [facility], 168, cm, 08/19/21 10:50:00 [...] suspension (2 sources)Corticosteroid, Quinolone AntimicrobialStart: 10-23-2023 End: 51-37-2387Xrbcelef 0.3%-0.1% Susp-Otic 4 drop(s), Otic, BID for 7 day(s), 7.5 mL, Refill(s) 0, [facility]/pharmacy #[id number], 168, cm, 10/23/23 16:55:00 EDT, Height/Length Dosing, 106.2, kg, 10/23/23 16:55:00 EDT, WeightDosing Start Date: 10/23/23 Stop Date: 10/30/23 Status: OrderedStart: 02-15-2023 End: 59-35-8088Ainmzmro 0.3%-0.1% Susp-Otic 4 drop(s), Otic, BID for 7 day(s), 7.5 mL, Refill(s) 0, Only use if drainage or pain of ear shake well before using, [facility], 168, cm, 02/15/23 9:49:00 [...] (20 sources)Low Molecular Weight HeparinStart: 01-19-2025 End: 67-90-4833Nsmyasklbz Sodium (Lovenox) 40 MG/0.4ML solution prefilled syringe Indications: Anticoagulant long-term use , Antiphospholipid antibody positive , Antiphospholipid antibody syndrome ([facility]) Inject 40 mg as directed Daily for 30 doses 12 mL 3 01/19/2025 02/18/2025 ActiveStart: 01-09-2025 End: 74-78-0150uyrysh 0.4 mL by subcutaneous injection onceenoxaparin (LOVENOX) 40 mg/0.4 mL syringe Indications: Antiphospholipid syndrome Inject 0.4 mL (40 mg total) under the skin Every 12 (twelve) hours. 24 mL 6 01/13/2025 ActiveStart: 05-03-2023 End: 28-42-2606alukutvszd (LOVENOX) 40 mg/0.4 mL Indications: Primary hypercoagulable state (HCC) , CVA, old, speech/language deficit , Cerebral hyponatremia INJECT 1 SYRINGE SUBCUTANEOUSLY EVERY 24 HOURS 90 mL 10/29/2024 ActiveStart: 04-06-2022 End: 06-08-6800pvovsprplz (LOVENOX) 40 mg/0.4 mL Indications: Primary hypercoagulable state (HCC) , CVA, old, speech/language deficit , Cerebral hyponatremia INJECT THE CONTENTS OF ONE SYRINGE (0.4 ML) SUBCUTANEOUSLY EVERY 24 HOURS 90 mL 2 09/28/2022 ActiveStart: 09-06-2021 End: 90-83-5552fpymyd 0.8 mL by subcutaneous injection twice dailyenoxaparin (LOVENOX) 80 mg/0.8 mL Indications: Primary hypercoagulable state (HCC) Inject 0.8 mL subcutaneously twice daily. 48 mL 5 09/06/2021 10/06/2021 ActiveStart: 04-07-2020 End: 66-28-0196ectcxi 0.4 mL by subcutaneous injection every twenty-four hours enoxaparin (LOVENOX) 40 mg/0.4 mL Indications: Primary hypercoagulable state (HCC) , CVA, old, speech/language deficit , Cerebral hyponatremia Inject 0.4 mL subcutaneously every 24 hours. 36 mL 0 12/30/2021 03/30/2022 Active End: 96-85-9682nggknw 40 mg by subcutaneous injection in the [...] enoxaparin (LOVENOX) 40 MG/0.4ML injection (1 source)Start: 20-30-4543zapxxpoarr (LOVENOX) 40 MG/0.4ML injection Inject 0.4 mLs into the skin daily 16 mL 1 02/20/2020 Activeenoxaparin (Lovenox) 40 MG/0.4ML injection (20 sources)enoxaparin (Lovenox) 40 MG/0.4ML injection 1 (one) time each day at the same time Activefamotidine 40 mg oral tablet (20 sources)Histamine-2 Receptor AntagonistStart: 86-30-7329teyh 1 tablet by mouth once daily at bedtimePepcid 40 mg Tab 40 mg = 1 tab(s), Oral, Once a day (at bedtime), # 90 tab(s), Refills(s) 4, Pharmacy: [facility], 168, cm, 06/30/24 8:36:00 EST, Height/Length Dosing, 97.2, kg, 06/30/24 8:36:00 EST, Weight Dosing Start Date: 06/30/24 Status: Ordered Quantity: 90.0 Unit: tab(s) Repeat number: 5Start: 11-29-2023 End: 77-15-1716ixhy 1 tablet by mouth once dailyfamotidine (PEPCID) 20 mg tablet Take 1 tablet by mouth once daily. To take prior to infusion 1 tablet 11/29/2023 10/28/2024 Discontinued (Discontinued by Patient)Start: 11-29-2023 End: 43-00-9882dscxtlbhld 20 mg injection (PEPCID)fluconazole 150 mg oral tablet (6 sources)Azole AntifungalStart: 22-65-0580Wcwhhzto 150 mg Tab 150 mg = 1 tab(s), Oral, q7day, # 4 tab(s), Refills(s) 1, Pharmacy: [facility], 168, cm, 06/09/24 14:03:00 EST, Height/Length Dosing, 98.4, kg, 06/19/24 16:19:00 EST, Weight Dosing Start Date: 06/19/24 Status: Ordered Quantity: 4.0 Unit: tab(s) Repeat number: 2 Indication: Candidiasis, unspecifiedfluticasone propionate 0.05 mg/actuat metered dose nasal spray (20 sources)CorticosteroidStart: 11-20-2024 End: 72-56-2834zhti 1 spray(s) nasal route once dailyfluticasone (Flonase) 50 MCG/ACT nasal spray Indications: Sinus headache Administer 1 spray into each nostril Daily Shake gently. Before first use, prime pump. After use, clean tip and replace cap. 16 g 3 11/20/2024 11/20/2025 ActiveStart: 86-83-4923Cujeefi 0.05 mg/inh Medina 2 spray(s), Nasal, Daily, 16 gram, Refill(s) 11, each nostril, [facility]/pharmacy #[id number], 168, cm, 06/09/24 14:03:00 EST, Height/Length Dosing, 99.1, kg, 06/09/24 14:03:00 EST, Weight Dosing Start Date: 06/09/24 Status: Ordered Quantity: 16.0 Unit: g Repeat number: 12Start: 26-50-7590Qgtoxqi 0.05 mg/inh Medina 2 spray(s), Nasal, Daily, 16 gram, Refill(s) 11, each nostril, [id number], 168, cm, 06/09/24 14:03:00 EST, Height/Length Dosing, 99.1, kg, 06/09/24 14:03:00 EST, Weight Dosing Start Date: 06/09/24 Status: OrderedStart: 80-64-0334Lnykvap 0.05 mg/inh Medina 2 spray(s), Nasal, Daily, 16 gram, Refill(s) 0, each nostril Start Date: 08/03/23 Status: Orderedisopropyl alcohol 0.7 ml/ml medicated pad (20 sources)Start: 75-54-7488Mvjpqrm Swabs (Alcohol Prep Pad) 70 % pads Indications: Second trimester ([facility]) , 13 weeks gestation of ([facility]) , Multigravida of advanced maternal age in second trimester ([facility]) , Gestational diabetes mellitus (GDM), antepartum, gestational diabetes method of control unspecified ([facility]) , Elevated glucose tolerance test Apply 1 Pad topically Daily Use four times daily to check FSBS. 150 each 3 10/30/2024 Activelevothyroxine sodium 0.025 mg oral tablet (20 sources)l-ThyroxineStart: 14-05-5294xqykpgzbiwdfu 25 mcg (0.025 mg) Tab 25 mcg = 1 tab(s), Oral, Daily, Dr. Celaya, # 30 tab(s), Refills(s) 0 Start Date: 06/09/24 Status: Ordered Quantity: 30.0 Unit: tab(s) Repeat number: 1Start: 06-02-2024 End: 31-18-0594dmtv 1 tablet by mouth before mealtimelevothyroxine (Synthroid) 50 MCG tablet Indications: History of thyroid disease Take 1 tablet (50 mcg) by mouth in the morning. Take before meals. 30 tablet 11 06/02/2024 06/23/2024 DiscontinuedStart: 02-25-2024 End: 00-78-0548fcrw 1 tablet by mouth before mealtimelevothyroxine (Synthroid) 25 MCG tablet Indications: Abnormal TSH Take 1 tablet (25 mcg) by mouth in the morning. Take before meals. 30 tablet 11 06/23/2024 06/23/2025 ActiveStart: 08-24-2021 End: 22-01-9031crrrkzwzrdnsx (SYNTHROID) 25 mcg tablet Take 25 mcg by mouth. 0 08/24/2021 09/26/2023 Discontinued End: 32-71-2507fqsi 3 tablets by mouth once dailylevothyroxine (Synthroid) 25 MCG tablet Take 75 mcg by mouth 1 (one) time each day at the same time05/06/2024 DiscontinuedComment on above:Take 25 mcg by mouth.Lovenox 40 mg/0.4 mL Injection (20 sources)Start: 53-55-2436ebubbe 40 mg by subcutaneous injection every twenty-four hoursLovenox 40 mg/0.4 mL Injection 40 mg, SubCutaneous, q24hr, # 7 EA, Refills(s) 0, Blood Thinner Start Date: 04/07/20 Status: Ordered Quantity: 7.0 Unit: EA Repeat number: 1Start: 17-34-9778esedsn 40 mg by subcutaneous injection every twenty-four hoursLovenox 40 mg/0.4 mL Injection 40 mg, SubCutaneous, q24hr, # 7 EA, Refills(s) 0, Blood Thinner Start Date: 04/07/20 Status: Qcxhmos36 hr metFORMIN hydrochloride 500 mg extended release oral tablet (20 sources)BiguanideStart: 64-73-6703bdpJUBPSI XR (GLUCOPHAGE XR) 500 mg 24 hr tablet Take 500 AM and 1000 mg at night. 90 tablet 4 03/11/2025 ActiveStart: 01-19-2025 End: 58-30-8509xuob 3 tablets by mouth every twenty-four hours at mealtime metFORMIN XR (Glucophage-XR) 500 MG 24 hr tablet Indications: Gestational diabetes mellitus (GDM), antepartum, gestational diabetes method of control unspecified ([facility]) Take 3 tablets (1,500 mg) by mouth in the evening. Take with meals Do not crush, chew, or split. 90 tablet 3 01/19/2025 ActiveStart: 01-01-2025 End: 45-38-8842rwaBVKORE XR (GLUCOPHAGE XR) 500 mg 24 hr tablet Take 1500 mg at night. 90 tablet 4 01/01/2025 03/11/2025 DiscontinuedStart: 12-17-2024 End: 57-80-7205wlcCWLMNZ XR (GLUCOPHAGE XR) 500 mg 24 hr tablet Take 1000 mg at night. 90 tablet 4 12/17/2024 01/01/2025 DiscontinuedStart: 05-13-2024 End: 33-83-8418fstd 2 tablets by mouth every twenty-four hours at mealtime metFORMIN XR (Glucophage-XR) 500 MG 24 hr tablet Indications: Insulin resistance Take 2 tablets (1,000 mg) by mouth in the evening. Take with meals Do not crush, chew, or split. 60 tablet 11 05/13/2024 06/02/2024 DiscontinuedStart: 11-27-2023 End: 34-74-0235xvpp 1 tablet by mouth once dailymetFORMIN XR (Glucophage-XR) 500 MG 24 hr tablet Indications: Insulin resistance Take 1 tablet (500mg) by mouth 1 (one) time each day at the same time 30 tablet 11 09/18/2024 01/19/2025 DiscontinuedStart: 60-22-2994TrfWJCVBT (Eqv-Glucophage XR) 500 mg oral tablet, extended release 1,000 mg = 2 tab(s), Oral, Daily, Refills(s) 0 Start Date: 10/20/22 Status: Ordered Repeat number: 1Start: 03-26-2022 End: 93-05-6971exyKSIHYI XR (GLUCOPHAGE XR) 500 mg 24 hr [...] tablet by mouth once daily.polyethylene glycol 3350 40792 mg powder for oral solution (20 sources)Osmotic Laxativepolyethylene glycol (GLYCOLAX) 17 gram packet Take 17 g by mouth in the morning. ActivePolyethylene Glycols (4 sources)polyethylene glycol 3350 (MIRALAX PO) Take by mouth. ActivePRENATAL 19 29 mg iron- 1 mg tablet,chewable (20 sources)Start: 64-78-5749NUPSYZKQ 19 29 mg iron- 1 mg tablet,chewable Chew 1 tablet and swallow in the morning. 6 10/31/2018ActiveStart: 58-98-2858DUGMDNTF 19 29 mg iron- 1 mg tablet,chewable Chew 1 tablet and swallow daily. 6 10/31/2018 ActivePrenatal Vit-Fe Fumarate-FA ( PO) (1 source)Start: 28-09-6980Jfciuogy Vit-Fe Fumarate-FA ( PO) Take 1 tablet by mouth 0 10/31/2018 Activeprogesterone 200 mg oral capsule (20 sources)Progesteronetake 1 capsule by mouth in the morningprogesterone (PROMETRIUM) 200 mg capsule Take 1 capsule (200 mg total) by mouth in the morning. ActiveProgesterone 200 MG suppository (6 sources)Start: 09-18-2024 End: 36-54-2698Wmyydiqgnizq 200 MG suppository Indications: History of miscarriage Insert 200 mg into the vagina at bedtime Insert suppository vaginally every night at bedtime until 12 weeks gestation 30 suppository 3 09/18/2024 10/30/2024 Discontinued (Therapy completed)Start: 09-18-2024 End: 18-99-6909Psdmyisficnf 200 MG suppository Indications: History of miscarriage Insert 200 mg into the vagina at bedtime Insert suppository vaginally every night at bedtime until 12 weeks gestation 30 suppository 3 09/18/2024 12/17/2024 ActiveStart: 09-01-2024 End: 65-46-8590Xpivatlskxzf 200 MG suppository Indications: History of miscarriage Insert 200 mg into the vagina at bedtime Insert suppository vaginally every night at bedtime until 12 weeks gestation 30 suppository 2 09/01/2024 11/30/2024 Activeprogesterone vaginal suppository 200 mg (CPD) (4 sources)progesterone vaginal suppository 200 mg (CPD) Use 200 mg vaginally. Unwrap and insert as directed. Activeterconazole 4 mg/ml vaginal cream (3 sources)Azole AntifungalStart: 06-23-2024 End: 13-91-0023ihwwszkzxhh (Terazol 7) 0.4 % vaginal cream Indications: Vaginal discharge Insert 1 applicator intothe vagina at bedtime for 7 days 45 g 06/23/2024 06/30/2024 ActiveVentolin HFA 90 mcg/inh Aerosol-Adpt (1 source)Start: 09-07-2024 End: 76-40-2084eqfq 2 puff(s) by inhalation every six hours for wheezingVentolin HFA 90 mcg/inh Aerosol-Adpt 2 puff(s), Inhalation, q6hr for wheezing for 7 day(s), 8 gm, Refill(s) 0, [facility], 167, cm, 09/07/24 10:01:00 EDT, Height/Length Dosing, 96.4, kg, 09/07/24 10:01:00 EDT, Weight Dosing Start Date: 09/07/24 Stop Date: 09/14/24 Status: Ordered Quantity:8.0 Unit: g Repeat number: 1 Indication: Acute upper respiratory infection, unspecifiedVitamin D (20 sources)Start: 31-32-6998Vokydla D 2,000 International_Unit, Oral, qWeek, Refills(s) 0 Start Date: 08/03/23 Status: Ordered Repeat number: 1Start: 86-06-4672Hifqnfv D 2,000 International_Unit, Oral, qWeek, Refills(s) 0 Start Date: 08/03/23 Status: Ordered Completed/Discontinued Medications MedicationDrug Class(es)DatesSig (Normalized)Sig (Original)aspirin 81 mg chewable tablet (5 sources)Platelet Aggregation Inhibitor, Nonsteroidal Anti-inflammatory Drug End: 50-12-7782supcmvg 81 MG chewable tablet Chew 81 mg in the morning. 05/06/2024 Discontinued1 ml dexamethasone phosphate 4 mg/ml injection (1 source)CorticosteroidStart: 11-29-2023 End: 03-48-9250fzuGUGNVbxnrw sodium phosphate 8 mg injection (DECADRON)3 ml insulin glargine 100 unt/ml pen injector (6 sources)Insulin AnalogStart: 12-03-2024 End: 65-34-5455qmyhkld glargine (LANTUS SOLOSTAR U-100 INSULIN) 100 unit/mL (3 mL) insulin pen Prime with 2 units then inject 4 units SQ into abd 15 mL 3 12/03/2024 12/17/2024 Discontinued (Allergic response)insulin isophane, human 100 unt/ml injectable suspension (10 sources)Start: 12-26-2024 End: 07-34-4608hatv 8 [IU] by mouth once dailyinsulin NPH (HumuLIN N,NovoLIN N) 100 unit/mL injection Indications: Gestational diabetes mellitus (GDM) in second trimester controlled on oral hypoglycemic drug Inj sbq in abd 8 units nightly 10 mL 6 12/26/2024 02/06/2025 Discontinued (Patient Never Started This Medication)iron sucrose 300 mg in NaCl 0.9% 250 mL (VENOFER) (3 sources)Start: 11-29-2023 End: 03-17-1439rhyb sucrose 300 mg in NaCl 0.9% 250 mL (VENOFER)Start: 11-22-2023 End: 25-63-2275oels sucrose 300 mg in NaCl 0.9% 250 mL (VENOFER)Start: 11-15-2023 End: 17-28-3322xhrw sucrose 300 mg in NaCl 0.9% 250 mL (VENOFER)multivitamin (MULTIPLE VITAMINS) tablet (7 sources)take 1 tablet by mouth once dailymultivitamin (MULTIPLE VITAMINS) tablet Take 1 tablet by mouth once daily. 0 ActiveComment on above:Take 1 tablet by mouth once daily.ondansetron 4 mg disintegrating oral tablet (4 sources)Serotonin-3 Receptor AntagonistStart: 04-14-2024 End: 13-39-3502ezcj 1 tablet by mouth every six hours for nauseaondansetron ODT (Zofran-ODT) 4 MG disintegrating tablet Indications: Nausea and vomiting in Take 1 tablet (4 mg) by mouth every 6 (six) hours if needed for nausea or vomiting 30 tablet 2 04/14/2024 05/06/2024 DiscontinuedStart: 03-07-2024 End: 19-88-6838enfl 1 tablet by mouth every six hours as needed for nausea and vomiting and nausea and nauseaondansetron ODT (Zofran-ODT) 4 MG disintegrating tablet Indications: Nausea Take 1 tablet (4 mg) bymouth every 6 (six) hours if needed for nausea or vomiting 30 tablet 2 03/07/2024 04/06/2024 Active polysaccharide iron complex 391 mg oral capsule (20 sources)Start: 03-06-2022 End: 74-41-7944XVJ FE 180 mg iron cap Problems Active Problems Problem ClassificationProblemDateDocumented DateEpisodic/ChronicAcute cerebrovascular disease (20 sources)Cerebral infarction; Translations: [Cerebral infarction, unspecified]Onset: 05-16-2019 Resolved: [id number]nt disorders (20 sources)Anxiety; Translations: [Anxiety disorder, unspecified]Onset: 673292-01-1911FdgtagjAgkqimh dysrhythmias (20 sources)Supraventricular tachycardia; Translations: [Supraventricular tachycardia]Onset: 858891-24-0627AonxukqYawwdroiigy and hemorrhagic disorders (20 sources)Antiphospholipid syndrome; Translations: [Hypercoagulability state] Onset: 489619-81-6250ZridikzQdjkgsmlow and other anemia (20 sources)Iron 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; Translations: [Iron deficiency anemia secondary to blood loss (chronic)]Onset: 28-30-3047Qhflltn Deficiency and other anemia (1 source)Iron deficiency anemia secondary to blood loss (chronic); Translations: [Iron deficiency anemia secondary to blood loss (chronic)]Onset: 10-72-1150KhaoaxfVqdcynie or abnormal glucose tolerance complicating ; childbirth; or the puerperium (20 sources)Gestational diabetes mellitus in , unspecified control; Translations: [Gestational diabetes mellitus in childbirth, unspecified control] Onset: 68-01-6913CwuchikdQctxisnwa of teeth and jaw (11 sources)Temporomandibular piasi-suyn-yebdmhlocyv syndrome; Translations: [Arthralgia of temporomandibular joint]Onset: 101183-19-3723Eguigwso Esophageal disorders (20 sources)Laryngopharyngeal reflux; Translations: [Gastro-esophageal reflux disease without esophagitis]Onset: 327089-63-6573YhjujiaFjmyoklt; including migraine (2 sources)Sinus headache; Translations: [Sinus headache]52-45-8391TzwrpfrhKxwh effects of cerebrovascular disease (20 sources)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; Translations: [Other speechand language deficits following cerebral infarction]Onset: 27-97-8960WhitqygRlibtrqubj disorders (1 source)Hormone replacement therapy; Translations: [HORMONE REPLACEMENT THERAPY]Onset: 79-04-1837LcfnonvgPlbkkcqpn disorders (20 sources)Irregular menstruation, unspecified; Translations: [Missed period] Onset: 18-73-4981SrsmudbNfjjlsyqtznma mental health disorders (20 sources)Psychogenic hyperventilation; Translations: [Other somatoform disorders]Onset: 935837-12-2388DebciclWkhfrown sclerosis (1 source)Multiple sclerosis; Translations: [Multiple sclerosis]Onset: 72-22-2633JgziqcfKywfqhpkoaj deficiencies (20 sources)Vitamin D deficiency; Translations: [Vitamin D deficiency, unspecified]Onset: 143456-15-8131WdnrepjSpscn aftercare (1 source)Other usp (current) drug therapy; Translations: [OTH RESIDENTIAL CURRENT DRUG THERAPY]Onset: 45-96-7322YniapsapRilwj aftercare (1 source)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; Translations: [SOURCING ASSOCIATE USE ORAL HYPOGLYCEMIC DX]Onset: 52-79-5529LtdudxybIlclo aftercare (2 sources)H/O: miscarriage; Translations: [Encounter for other specified aftercare]82-95-0111YgzzktwsAshjj circulatory disease (4 sources)History of cerebrovascular disease; Translations: [Personal history of transient ischemic attack (TIA), and cerebral infarction without residual deficits]Onset: 190836-02-6565XxyxvbxhEtpit circulatory disease (3 sources)Personal history of transient ischemic attack (TIA), and cerebral infarction without residual deficits; Translations: [PERS HX TIA AND CI NO RESID DEFICIT]Onset: 09-05-6365PehwluujKcdux circulatory disease (1 source)History of transient ischemic attack; Translations: [Personal history of transient ischemic attack (TIA), and cerebral infarction without residual deficits]68-78-4773NkytakcvDdxcs complications of ; puerperium affecting management of mother (20 sources)Anemia in mother complicating childbirth; Translations: [Anemia complicating childbirth]Onset: 765240-98-1376LgtbfmsGkekj complications of ; puerperium affecting management of mother (1 source)Other diseases of the blood and blood-forming organs and certain disorders involving the immune mechanism complicating childbirth; Translations: [OTH DZ BLD BFO IMMUN COMP CHILDBRTH]Onset: 78-06-3130SmvsjplhNdomm complications of ; puerperium affecting management of mother (1 source)Endocrine, nutritional and metabolic diseases complicating childbirth; Translations: [ENDOCRN NUTR MET DZ COMP CHILDBIRTH]Onset: 63-43-4285Gfukptln Other complications of ; puerperium affecting management of mother (1 source)Streptococcus B carrier state complicating childbirth; Translations: [STREP B QUIROZ STATE COMP CHILDBIRTH]Onset: 71-47-0918YnkvvxbyZkhfg complications of (20 sources)Iron deficiency anemia of ; Translations: [Anemia complicating , unspecified trimester]Onset: 61-05-3970IzqqgfkYjdwi complications of (1 source)Endocrine, nutritional and metabolic diseases complicating , third trimester; Translations: [ENDOCRN NUTR MET DZ COMP PG 3RD TRI]Onset: 69-28-5837SkmkpocmSjhhg complications of (5 sources)Supervision of elderly multigravida, third trimester; Translations: [SUP ELDER MULTIGRAVIDA THIRD TRI]Onset: 48-05-9120QsmeshgbOsufp complications of (1 source)Other diseases of the blood and blood-forming organs and certain disorders involving the immune mechanism complicating , third trimester; Translations: [OTH DZ BLD BFO IMMN COMP PG 3RD TRI]Onset: 05-04-2022 EpisodicOther complications of (1 source)Maternal care for excessive growth, third trimester, not applicable or unspecified; Translations: [MAT CARE EXCSS FTL GRTH 3RD TRI UNS] Onset: 27-23-3366SvsekyjrFuibb complications of (20 sources)History of with abortive outcome; Translations: [Supervision of with other poorreproductive or obstetric history, second trimester]Onset: 878173-86-7530VoatpuvtTgpwi complications of (3 sources)Hypothyroidism in ; Translations: [Endocrine, nutritional and metabolic diseases complicating , second trimester]01-02-2025 EpisodicOther ear and sense organ disorders (20 sources)Otitis externa of right ear; Translations: [Unspecified otitis externa, right ear]Onset: 61-66-6686HvlwjpzHnkhs ear and sense organ disorders (7 sources)Otitis umhxcbx46-37-7590VpuforaYalem endocrine disorders (20 sources)Hypoglycemia; Translations: [Hypoglycemia, unspecified]Onset: 751392-33-3522FitsbfmJqdqe female genital disorders (2 sources)Vaginal bleeding; Translations: [Abnormal uterine and vaginal bleeding, unspecified]36-48-2906VldjuvbLbnbf female genital disorders (4 sources)Vaginal discharge; Translations: [Other specified noninflammatory disorders of vagina]43-99-7668CrvxhzvkOumes hematologic conditions (1 source)H/O: blood disorder; Translations: [Personal history of diseases of the blood and blood-forming organs and certain disorders involving the immune mechanism]Onset: 36-78-7002KsmrmvumGhqzb lower respiratory disease (9 sources)Ibmjc37-32-0695AswaxsnyMngvs nervous system disorders (1 source)Idiopathic progressive neuropathy; Translations: [Idiopathic progressive neuropathy]Onset: 83-57-3979FloegvlEhlva nervous system disorders (20 sources)Neuropathy; Translations: [Idiopathic progressive neuropathy]Onset: 182968-26-7232GhwdaccOonrj nervous system disorders (3 sources)Paresthesia; Translations: [Paresthesia of skin]Onset: 05-16-2019 EpisodicOther nervous system disorders (9 sources)Muscle ilvctu13-35-5125CrmwyqhiCdsnr nervous system disorders (6 sources)Facial wsviruaedbk58-98-9552KrqzizmiPzhdw nutritional; endocrine; and metabolic disorders (10 sources)Obese class II; Translations: [Body mass index (BMI) 36.0-36.9, adult]Onset: 11-72-0757TxgkovmPzohi nutritional; endocrine; and metabolic disorders (20 sources)Obesity; Translations: [Other obesity]Onset: 405991-15-6029 ChronicOther nutritional; endocrine; and metabolic disorders (20 sources)Morbid obesity; Translations: [Morbid (severe) obesity due to excess calories]Onset: 07-60-2715EowdypkPmsnn nutritional; endocrine; and metabolic disorders (3 sources)Hypercalcemia; Translations: [Hypercalcemia]17-79-8698NoqhmrsSwhau nutritional; endocrine; and metabolic disorders (20 sources)Body mass index 30+ - obesity; Translations: [Body mass index (BMI) 37.0-37.9, adult]Onset: 004596-12-7587SnlwuvoSflry nutritional; endocrine; and metabolic disorders (1 source)Obese class I; Translations: [Body mass index (BMI) 34.0-34.9, adult] Onset: 22-93-2818MoxjwysTxfkh nutritional; endocrine; and metabolic disorders (1 source)H/O: Disorder; Translations: [Personal history of other endocrine, nutritional and metabolic disease]Onset: 77-96-5632LqkgwmxbHdwuc nutritional; endocrine; and metabolic disorders (2 sources)H/O: thyroid disorder; Translations: [Personal history of other endocrine, nutritional and metabolic disease]27-34-7100YdbxzyxcOfwju screening for suspected conditions (not mental disorders or infectious disease) (12 sources)Encounter for screening for malignant neoplasm of cervix; Translations: [Encounter for screening for diabetes mellitus]Onset: 10-28-2021 EpisodicOther skin disorders (1 source)Podopompholyx; Translations: [Dyshidrosis [pompholyx]]Onset: 19-67-9123HoyyeldkPwcci upper respiratory disease (20 sources)Allergy to eusuvy58-48-3258TetaoqiFyymn upper respiratory disease (1 source)Polyp of nasal sinus; Translations: [Nasal polyp, unspecified]Onset: 85-07-7957WbgzykpnFkegx upper respiratory infections (8 sources)Chronic sinusitis; Translations: [Chronic sinusitis, unspecified] Onset: 30-49-1602BkyfjiyZfifwsnw codes; unclassified (1 source)Sleep disorder; Translations: [Other sleep disorders]Onset: 10-20-2022 ChronicResidual codes; unclassified (20 sources)Obstructive sleep apnea syndrome; Translations: [Obstructive sleep apnea (adult) (pediatric)]Onset: 352985-47-9790TfazamjMmzdgctv codes; unclassified (8 sources)Patient encounter status; Translations: [Other specified health status]Onset: 03-96-9190YifqmhbiRhrokinq codes; unclassified (1 source)39 weeks gestation of ; Translations: [39 WEEKS GESTATION OF ]Onset: 52-60-6124FbhfviajYdoxekmm codes; unclassified (1 source)Family history of diabetes mellitus; Translations: [FAMILY HISTORY OF DIABETES MELLITUS]Onset: 18-03-0157JxmtsggrScpvxzxo codes; unclassified (1 source)Family history of stroke; Translations: [FAMILY HISTORY OF STROKE] Onset: 74-87-5511FcropenzQqvzkeng codes; unclassified (1 source)38 weeks gestation of ; Translations: [38 WEEKS GESTATION OF ]Onset: 66-28-1228ObnqwvyjFsqldqov codes; unclassified (1 source)37 weeks gestation of ; Translations: [37 WEEKS GESTATION OF ]Onset: 92-82-0520VvzwifspCqcecekf codes; unclassified (1 source)35 weeks gestation of ; Translations: [35 WEEKS GESTATION OF ]Onset: 65-30-8350ExvmpduzWpqcfnyq codes; unclassified (1 source)34 weeks gestation of ; Translations: [34 WEEKS GESTATION OF ]Onset: 06-06-8457JjmvyeivGlgpuuid codes; unclassified (1 source)33 weeks gestation of ; Translations: [33 WEEKS GESTATION OF ]Onset: 08-61-3085UgfgmdpvSkhwsuns codes; unclassified (1 source)32 weeks gestation of ; Translations: [32 WEEKS GESTATION OF ]Onset: 51-41-6701HkbawlezXgrztlob codes; unclassified (1 source)31 weeks gestation of ; Translations: [31 WEEKS GESTATION OF ]Onset: 58-13-6171MjduxhskCfxvmwwa codes; unclassified (20 sources)Sleep upzzzsxy26-48-3321XlymunxvKqqsibiz codes; unclassified (1 source)Localized edema; Translations: [Localized edema]Onset: 11-09-2023 EpisodicResidual codes; unclassified (2 sources)Gestation period, 14 weeks; Translations: [14 weeks gestation of ]77-12-0860MoafdxlmZppyolpp codes; unclassified (2 sources)Gestation period, 13 weeks; Translations: [13 weeks gestation of ]96-44-7265OvmcdauyNkonidgz codes; unclassified (2 sources)Gestation period, 16 weeks; Translations: [16 weeks gestation of ]47-30-6690EnkshukoVljryimd codes; unclassified (2 sources)Gestation period, 19 weeks; Translations: [19 weeks gestation of ]44-58-2571RcxekjfwAphsxzwp codes; unclassified (3 sources)Gestation period, 22 weeks; Translations: [22 weeks gestation of ]09-76-9614MakdncsxTzdlxwbn codes; unclassified (3 sources)Family history of autism; Translations: [Family history of other mental and behavioral disorders]70-33-5811VkameoprQniptpoc codes; unclassified (2 sources)Gestation period, 23 weeks; Translations: [23 weeks gestation of ]91-11-0293VkxvwfcbUvevrkde codes; unclassified (2 sources)Gestation period, 25 weeks; Translations: [25 weeks gestation of ]50-32-1484UusjxlhePfpolfwq codes; unclassified (1 source)Gestation period, 27 weeks; Translations: [27 weeks gestation of ]47-99-3283YxndwgnuRhcxsdly codes; unclassified (1 source)22 weeks gestation of ; Translations: [22 weeks gestation of ]Onset: 80-30-9853YyigooqfVprxsfxs codes; unclassified (2 sources)Gestation period, 28 weeks; Translations: [28 weeks gestation of ]64-47-5959WftcrzrsXisyerya codes; unclassified (1 source)Gestation period, 29 weeks; Translations: [29 weeks gestation of ]85-58-8791TbppkacfZjjcwflr codes; unclassified (2 sources)Gestation period, 30 weeks; Translations: [30 weeks gestation of ]82-40-7938BvovvioaInnqitg disorders (20 sources)Hypothyroidism; Translations: [Hypothyroidism, unspecified]Onset: 332209-35-2517JgcztipFqzzahy disorders (20 sources)Disorder of thyroid, unspecified; Translations: [Disorder of thyroid gland]Onset: 891987-23-3246WskscruhCbezeugtd cerebral ischemia (1 source)Transient cerebral ischemia; Translations: [Transient cerebral ischemic attack, unspecified]Onset: 162235-22-9078YvdngwaVvfrczywbelx (20 sources)History of TSNR-GxP-677-11-2022Unclassified (20 sources)Inhalation qnomya90-65-5241Gzuokoojsvni (20 sources)Rze-pbqaqt38-23tfpfqy51-85-9890Amkuycpsixxy (1 source)CONTACT W/AND (SUSP) EXPOS COVID-19; Translations: [CONTACT W/AND (SUSP) EXPOS COVID-19]Onset: 61-25-8015Brtunyvzxxlp (15 sources)Patient encounter otjuxx07-33-5835Tnxpfkchqmqp (1 source)MFM consultOnset: 06-97-3751Bpodmnlfuidu (1 source)Gestational DiabetesOnset: 91-08-7236Ykivo infection (20 sources)Viral iibwfqj02-27-0747Lvtkxlag Past or Other Problems Problem ClassificationProblemDateDocumented DateEpisodic/ChronicAbdominal pain (20 sources)Abdominal pain; Translations: [Pain in pelvis]Onset: 02-01-2019 48-63-1242EhggerwxVeeda bronchitis (20 sources)Acute infective bronchitis; Translations: [Acute bronchitis due to other specified organisms]Onset: 343105-72-1539NhrhknvfHeics posthemorrhagic anemia (20 sources)Acute posthemorrhagic anemia; Translations: [Acute posthemorrhagic anemia]Onset: 663206-94-7507VbjqertaBvwujdex reactions (20 sources)Other allergy status, other than to drugs and biological substances; Translations: [Gqkhv-ay-vzyquji vesicular eczema of hands and feet]Onset: 82-99-4152KwirsmttDfypwqxux infection; unspecified site (20 sources)Bacterial infectious disease; Translations: [Other bacterial infections of unspecified site]Onset: 962004-98-1196CounaijlKfahrmpo of urinary tract (20 sources)History of calculus of kidney; Translations: [Personal history of urinary calculi]Onset: 360152-26-8514OhhrdeukVmetcpj dysrhythmias (20 sources)Palpitations; Translations: [Palpitations]Onset: 08-26-2019 67-94-9283PeouiagyNrkzcqsvkz associated with dizziness or vertigo (20 sources)Dizziness; Translations: [Dizziness and giddiness]Onset: 02-05-2019 78-08-4161BoknjdgsGiapmklokh and other anemia (20 sources)Anemia; Translations: [Anemia, unspecified]Onset: 75-64-7220Mqwakryv Diabetes mellitus without complication (20 sources)Prediabetes; Translations: [Prediabetes]Onset: 88-01-9745Myeglpch Diseases of mouth; excluding dental (20 sources)Xerostomia; Translations: [Dry mouth, unspecified]Onset: 12-22-2022 EpisodicFluid and electrolyte disorders (20 sources)Cerebral hyponatremia; Translations: [Hypo-osmolality and hyponatremia]Onset: 89-04-6066JbkidvgxOevpouymkivmtoiq hemorrhage (20 sources)Hematochezia; Translations: [Blood-tinged feces]Onset: 06-12-2023 97-15-6044DsyqiyicHlhonltvhemwq symptoms and ill-defined conditions (20 sources)Genitourinary symptoms; Translations: [Unspecified symptoms and signs involving the genitourinary system]Onset: 50-76-5947LxgrlxxgQnyucizf; including migraine (20 sources)Migraine without aura, not refractory ; Translations: [Migraine without aura, not intractable, without status migrainosus]Onset: 09-12-2017 Resolved: 634131-33-6356IgfjlybBgswjeiavzcju and screening for infectious disease (20 sources)Antibody studies abnormal; Translations: [Raised antibody titer] Onset: 394730-20-4774JyjeegguKhwmabh and fatigue (20 sources)Fatigue; Translations: [Other fatigue]Onset: EpisodicMycoses (20 sources)Candidiasis of vagina Resolved: 209086-72-1425LdygkjwwPimydeojxle deficiencies (20 sources)Vitamin B deficiency; Translations: [Deficiency of other specified B group vitamins]Onset: 033084-07-4252SrxqwfhaKQ-vjwgqgx trauma to perineum and vulva (20 sources)First degree perineal tear during delivery - delivered; Translations: [First degree perineal laceration during delivery]Onset: 473696-56-7155ClxdppexKzvar aftercare (20 sources)Long-term current use of anticoagulant; 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]Onset: 383698-67-7202WbtpuyilAvdjy aftercare (20 sources)Long-term current use of drug therapy; Translations: [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]Onset: EpisodicOther circulatory disease (20 sources)History of cerebrovascular accident; Translations: [Personal history of transient ischemic attack (TIA), and cerebral infarction without residual deficits]Onset: 607086-78-8860DfqgorgtYyoutbz on above:reported by pt - related to antiphospholipid syndromeOther circulatory disease (20 sources)Elevated blood-pressure reading without diagnosis of hypertension; Translations: [Elevated blood-pressure reading, without diagnosis of hypertension]Onset: 105912-68-9503KaqwrlwkSjbgb circulatory disease (20 sources)Elevated blood pressure; Translations: [Elevated blood-pressure reading, without diagnosis of hypertension]Onset: 945849-25-8454Olicabrs Other complications of ; puerperium affecting management of mother (20 sources) problem; Translations: [Unspecified disorders of ]Onset: 854172-20-3089TniudswxPozpd complications of ; puerperium affecting management of mother (1 source)Endocrine, nutritional and metabolic disease complicating , childbirth and puerperium; Translations: [Endocrine, nutritional and metabolic diseases complicating childbirth]Onset: 612425-35-6690FmfsoyerSrqqm complications of ; puerperium affecting management of mother (1 source)Complication of , childbirth and/or the puerperium; Translations: [Other diseases of the blood and blood-forming organs and certain disorders involving the immune mechanism complicating childbirth]Onset: 901092-38-3421FyeooqbkPluzb complications of ; puerperium affecting management of mother (20 sources) hemorrhage; Translations: [Other immediate hemorrhage]Onset: 282170-20-6483QpmtywtqUjdon complications of (1 source)Vomiting of ; Translations: [Vomiting of , unspecified]Onset: 430473-67-0742OgraxyrrQsjwo complications of (20 sources)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; Translations: [Maternal care for (suspected) chromosomal abnormality in fetus, not applicable or unspecified]Onset: 652945-13-9691WfowqyhlWxxyz complications of (4 sources)Other specified related conditions, third trimester; Translations: [OTH SPEC PREG RELATEDCOND 3RD TRI]Onset: 26-11-9551XzfeawwyReuto complications of (20 sources)Antiphospholipid syndrome; Translations: [Other diseases of the blood and blood-forming organs and certain disorders involving the immune mechanism complicating , unspecified trimester]Onset: 07-07-2019 35-51-4999QpvwscspCmfdr complications of (20 sources)Multigravida of advanced maternal age; Translations: [Supervision of elderly multigravida, second trimester]Onset: 703356-04-7788WyamywamQdciv complications of (2 sources)Other diseases of the blood and blood-forming organs and certain disorders involving the immune mechanism complicating , unspecified trimester; Translations: [Other diseases of the blood andblood-forming organs and certain disorders involving the immune mechanism complicating , un specified trimester]Onset: 25-49-3238ZfqvrebrTygsz complications of (1 source)Supervision of elderly multigravida, second trimester; Translations: [Supervision of elderly multigravida, second trimester]Onset: 09-62-0498Bcevsdkr Other ear and sense organ disorders (20 sources)Referred otalgia of right ear; Translations: [Otalgia, right ear] Onset: 344664-88-7821UohvpqtaHyuku female genital disorders (20 sources)Noninflammatory disorder of the vagina; Translations: [Other specified noninflammatory disorders ofvagina]Onset: 362986-62-7508Wupjkedj Other female genital disorders (20 sources)Disorder of female reproductive system; Translations: [Unspecified condition associated with femalegenital organs and menstrual cycle]Onset: 867465-82-6577MvhqxentYjvfu female genital disorders (1 source)Other specified noninflammatory disorders of vagina; Translations: [OTH SPEC NONINFLAMMATORY D/O VAGINA]Onset: 54-45-3762OjzerjqvGksqv female genital disorders (14 sources)Pelvic and perineal pain; Translations: [Pelvic and perineal pain] Onset: 371396-23-3341YjbniuffVdlgl hematologic conditions (20 sources)H/O: anemia - iron deficient; Translations: [Personal history of diseases of the blood and blood-forming organs and certain disorders involving the immune mechanism]Onset: 543268-50-8939UxpjrurvTlvpx infections; including parasitic (20 sources)Personal history of other infectious and parasitic diseases; Translations: [History of COVID-19]Onset: 662044-29-8371YpqqhqhwNonmg inflammatory condition of skin (1 source)Itching of skin; Translations: [Pruritus, unspecified]Onset: 805085-53-9842BbpcvklnFjmmr inflammatory condition of skin (20 sources)Pruritus, unspecified; Translations: [Unspecified pruritic disorder] Onset: 655385-93-3748CpgpezelPaegs injuries and conditions due to external causes (20 sources)Inhalation injury; Translations: [Injury, unspecified, initial encounter]Onset: 025300-62-3258CoxuzhtxQbwcj lower respiratory disease (20 sources)Dyspnea; Translations: [Dyspnea, unspecified]Onset: 06-12-2023 90-74-8432ZcuoymqbWhqwv lower respiratory disease (20 sources)H/O: asthma; Translations: [Personal history of other diseases of the respiratory system]Onset: 631342-71-5943BaktfvayGkoxd lower respiratory disease (20 sources)Snoring; Translations: [Snoring]Onset: 14-02-4572PqymnqmfFtuyi nervous system disorders (20 sources)Muscle fasciculation; Translations: [Fasciculation]Onset: 08-19-2021 EpisodicOther nervous system disorders (20 sources)Paresthesia of lower extremity; Translations: [Paresthesia of skin] Onset: 028698-13-0683WbwomzsyGnhne nervous system disorders (20 sources)Acute postoperative pain; Translations: [Other acute postprocedural pain]Onset: 885466-85-2188UmvuqiknBxnll non-traumatic joint disorders (20 sources)Joint pain; Translations: [Pain in unspecified joint]Onset: 102548-90-7448XjjxycucFjkaq nutritional; endocrine; and metabolic disorders (20 sources)H/O: hypothyroidism; Translations: [Personal history of other endocrine, nutritional and metabolic disease]Onset: 812461-16-2429Yzuwtrcn Other and delivery including normal (20 sources)Normal ; Translations: [Encounter for supervision of normal , unspecified, first trimester]Onset: 505178-65-3782Nxpnwyzo Other skin disorders (20 sources)Meliu-xj-mjyrory vesicular eczema of hands and feet; Translations: [Dyshidrosis [pompholyx]]Onset: 974868-97-5375YdzadgjoLiuth upper respiratory disease (20 sources)Deviated nasal septum; Translations: [Deviated nasal septum]Onset: 86-46-9550CbrbytmpDzkln upper respiratory disease (20 sources)Polyp of nasal cavity and/or nasal sinus; Translations: [Nasal polyp, unspecified]Onset: 328387-19-8804CqqjyazuTnidc upper respiratory infections (20 sources)Acute upper respiratory infection Resolved: 394313-90-1470FsvwslvwCzflzf media and related conditions (20 sources)Dysfunction of eustachian tube; Translations: [Disorder of right Eustachian tube]Onset: 838570-64-4901CqushobkGjpamxq cyst (20 sources)Cyst of ovary; Translations: [Cyst of right ovary]Onset: 02-06-2019 46-78-3396ArpkkgvvDfshyrtm codes; unclassified (20 sources)Family history of female genital tract disorder Resolved: 780802-67-3296AxwtslhnVrzeyuhf codes; unclassified (20 sources)FH: Anemia Resolved: 406218-09-6261KbacblrdAgsoeijv codes; unclassified (20 sources)First trimester ; Translations: [Less than 8 weeks gestation of ]Onset: 534785-21-7411QboocgxfMzhscxvq codes; unclassified (20 sources)Gestation period, 32 weeks; Translations: [32 weeks gestation of ]Onset: 886694-28-2067KssgyypaSwkkjjtl codes; unclassified (1 source)Gestation period, 33 weeks; Translations: [33 weeks gestation of ]Onset: 769986-23-1477OiqcavxuWhgfqxco codes; unclassified (1 source)Gestation period, 34 weeks; Translations: [34 weeks gestation of ]Onset: 138375-97-7259SyvervalAhksulbx codes; unclassified (1 source)Gestation period, 35 weeks; Translations: [35 weeks gestation of ]Onset: 376731-75-2606YrjjorfwAuqcjdme codes; unclassified (1 source)Gestation period, 36 weeks; Translations: [36 weeks gestation of ]Onset: 700637-27-2732IhiceegoHwigosxs codes; unclassified (1 source)Gestation period, 37 weeks; Translations: [37 weeks gestation of ]Onset: 008573-49-9953NuzpkxmoNymygsaj codes; unclassified (1 source)Gestation period, 38 weeks; Translations: [38 weeks gestation of ]Onset: 717901-52-0209VcsvkgicDdjfvlpl codes; unclassified (1 source)Gestation period, 39 weeks; Translations: [39 weeks gestation of ]Onset: 167185-83-5934HkigvrtiIcsrieah codes; unclassified (20 sources)Other general symptoms and signs; Translations: [Other general symptoms]Onset: 253540-52-3257GwaffjecXyxqxroq codes; unclassified (1 source)Unspecified blood type, Rh negative; Translations: [UNSPECIFIED BLOOD TYPE RH NEGATIVE]Onset: 44-27-2121MkffbempXmqlukyn codes; unclassified (1 source)28 weeks gestation of ; Translations: [28 WEEKS GESTATION OF ]Onset: 48-05-9108VbjmfhbjIhotwdqu codes; unclassified (20 sources)Intolerant of cold; Translations: [Other general symptoms and signs] Onset: 774244-04-0569DrrnvdjjFjkuurym codes; unclassified (20 sources)Non-smoker; Translations: [Other specified health status]Onset: 792604-57-3595SkxdudegNkmvenzr codes; unclassified (20 sources)Swelling of salivary gland; Translations: [Localized edema]Onset: 033500-91-2818RcmnjmoaRhzggvlzryc; intervertebral disc disorders; other back problems (20 sources)Neck pain; Translations: [Cervicalgia]Onset: EpisodicSpontaneous (20 sources)Miscarriage Resolved: 592635-15-2249LdmhvacePxvymgk (20 sources)Syncope and collapse; Translations: [Syncope and collapse]Onset: 562405-09-9863PlpljcctOcudlutjsvxk (20 sources)PregnancyOnset: 02-20-2007 Resolved: 386967-88-3121Yyucgtppzhlh (20 sources)Suspected disease caused by 1984-zPgU58-18fHlT93-81-6719Xhvgwdqzqgmd (1 source)Exposure to 2019 novel coronavirus; Translations: [Contact with and (suspected) exposure to COVID19]Urinary tract infections (20 sources)Infective urethritis; Translations: [Other urethritis]Onset: 58-51-2511Djrobctc Results Test NameValueInterpretationReference RangeFacilityUS OB BPP W NON-STRESS on 34[place]40[place]668[place] [address] Ultrasound Report Signed Patient: SANNA RENDON MR#: [id number] : 1985 Acct:[id number] Age/Sex: 39 / F ADM Date: 03/05/25 Loc: US Attending Dr: Wilton Herrmann D.O. Ordering Physician: Wilton Herrmann D.O. Date of Service: 03/05/25 Procedure(s): US OB BPP w non-stress Accession Number(s): [id number] cc: Wilton Herrmann D.O.; Physician,Non-Staff M.DLazara The [place] [id number] Patient Name: SANNA RENDON MRN: [facility]:[id number] date: 1985 Sex: F Assigned Patient Location: [facility] Current Patient Location: Accession/Order Number: [id number] Exam Date: 03/05/2025 19:15 Report Date: 03/06/2025 [...] Pisano M.D. 03/06/2025 8:10 AM Dictation Location: [place] [address] Electronically authenticated by: [id number] Y Date: 03/06/2025 08:10 Dictated By: Pamela Pisano M.D. Signed By: 03/06/2513 DD/ 9 TD/TT: Folder Machine Adjuster:ELVERadiology, Radiologist, - 03/06/2025 [place] [address] Ultrasound Report Signed Patient: SANNA RENDON MR#: [id number] : 1985 Acct:[id number] Age/Sex: 39 / F ADM Date: 03/05/25 Loc: US Attending Dr: Wilton Herrmann D.O. Ordering Physician: Wilton Herrmann D.O. Date of Service: 03/05/25 Procedure(s): US OB BPP w non-stress Accession Number(s): [id number] cc: Wilton Herrmann D.O.; Physician,Non-Staff [place] [address] Patient Name: SANNA RENDON MRN: [facility]:[id number] date: 1985 Sex: F Assigned Patient Location: [facility] Current Patient Location: Accession/Order Number: [id number] Exam Date: 03/05/2025 19:15 Report Date: 03/06/2025 [...] Pisano M.D. 03/06/2025 8:10 AM Dictation Location: [place] [address] Electronically authenticated by: [id number] Y Date: 03/06/2025 08:10 Dictated By: Pamela Pisano M.D. Signed By: 03/06/25812 DD/ 9 TD/TT: Folder Machine Adjuster: SHILOH HealthcareRadiology Study observation (narrative)[facility] HealthcareUS OB BPP W NON-STRESSOrdered By: Radiologist Radiology on 33-83-0486TLHWSaint Mary's Hospital [facility] Work Phone: [phone]([place])D3 [facility] 885004-egomgbjxsdhfrm D3 [Mass/Vol]54.6 ng/sCEyeysu49.0-80.0[facility] on above: Order Comment: Specimen Type: BLOOD SPECIMENOrdering Facility: [facility] Address:[address] [place], [place] [address]Performed By: #### 1989-3 ####[facility] LABCLIA [id number] [address] W Auto Differential panel (Bld)on 03-02-2025 Basophils (Bld) [#/Vol]0.03 10*3/uLNormal<0.11CRegional Medical CenterComment on above:Order Comment: Specimen Type: BLOOD SPECIMENOrdering Facility: [facility] Address:[address] [place] [address] Performed By: #### 47174-3 ####[facility] LABCLIA [id number] [place], [place] [address]Lixlklpza/100 WBC (Bld)0.3 % NormalACMC Healthcare System on above:Order Comment: Specimen Type: BLOOD SPECIMENOrdering Facility: [facility] Address:[address] [place], [place] [address]Performed By: #### 12157-2 ####[facility] LABCLIA [id number] [place] [address] Differential cell count method Nom (Bld)AutoNormalCRegional Medical Center Comment on above:Order Comment: Specimen Type: BLOOD SPECIMENOrdering Facility: [facility] Address:[address] [place] [address] Performed By: #### 88785-5 ####[facility] LABCLIA [id number] [place], [place] [address]Vgocuzdgzkb (Bld) [#/Vol]0.06 10*3/uLNormal<0.46[facility] on above:Order Comment: Specimen Type: BLOOD SPECIMENOrdering Facility: [facility] Address:[address] [place], [place] [address]Performed By: #### 52991-5 ####[facility] LABCLIA [id number] [place], [place] [address]Ztgkrjrcgie/100 WBC (Bld)0.7 %NormalACMC Healthcare System on above:Order Comment: Specimen Type: BLOOD SPECIMENOrdering Facility: [facility] Address:[address] [place], [place] [address]Performed By: #### 63912-9 ####[facility] LABCLIA [id number] [place], [place] [address]Aiegkbqozrn distribution width (RBC) [Ratio]13.3 %Yiianw76.5-15.0[facility] on above: Order Comment: Specimen Type: BLOOD SPECIMENOrdering Facility: [facility] Address:[address] [place], [place] [address]Performed By: #### 69478- 8 ####[facility] LABIA [id number] [place], [place] [address]Qkgmscvakg (Bld) [Volume fraction]33.0 %Low36.0-46.0 [facility] on above:Order Comment: Specimen Type: BLOOD SPECIMENOrdering Facility: [facility] Address:[address] [place], [place] [address]Performed By: #### 91631-6 ####[facility] LABIA [id number] [place], [place] [address]Vuxvgsnwqt (Bld) [Mass/Vol]11.6 g/fTZrisiv06.5-15.5CWadsworth-Rittman Hospital on above: Order Comment: Specimen Type: BLOOD SPECIMENOrdering Facility: [facility] Address:[address] [place], [place] [address]Performed By: #### 48850- 8 ####[facility] LABCLIA [id number] [place], [place] [address]Miiimruz granulocytes (Bld) [#/Vol]0.04 10*3/uLNormal <0.10[facility] on above:Order Comment: Specimen Type: BLOOD SPECIMENOrdering Facility: [facility] Address:[address] [place], [place] [address]Performed By: #### 78672-3 ####[facility] LABCLIA [id number] [place], [place] [address]Iwleywlg granulocytes/100 WBC (Bld)0.5 %NormalACMC Healthcare System on above: Order Comment: Specimen Type: BLOOD SPECIMENOrdering Facility: [facility] Address:[address] [place], [place] [address]Performed By: #### 33254- 8 ####[facility] LABCLIA [id number] [place], [place] [address]Txxmbkfkowl (Bld) [#/Vol]2.31 10*3/uLNormal1.00-4.00 [facility] on above:Order Comment: Specimen Type: BLOOD SPECIMENOrdering Facility: [facility] Address:[address] [place], [place] [address]Performed By: #### 14265-5 ####[facility] LABCLIA [id number] [place], [place] [address]Fxolzchudkl/100 WBC (Bld)26.7 %NormalACMC Healthcare System on above:Order Comment: Specimen Type: BLOOD SPECIMENOrdering Facility: [facility] Address:[address] [place], [place] [address]Performed By: #### 72348-1 ####[facility] LABCLIA [id number] [place], [place] [address]HDI (RBC) [Entitic mass]31.3 qyXczlgy30.0-34.0[facility] on above:Order Comment: Specimen Type: BLOOD SPECIMENOrdering Facility: [facility] Address:[address] [place], [place] [address]Performed By: #### 53321-2 ####[facility] LABCLIA [id number] [place], [place] [address]DQFB (RBC) [Mass/Vol]35.2 g/iHCdetyv66.5-36.0[facility] on above: Order Comment: Specimen Type: BLOOD SPECIMENOrdering Facility: [facility] Address:[address] [place], [place] [address]Performed By: #### 60290- 8 ####[facility] LABCLIA [id number] [place], [place] [address]BSH (RBC) [Entitic vol]88.9 kTRhxrfj29.0-100.0[facility] on above:Order Comment: Specimen Type: BLOOD SPECIMENOrdering Facility: [facility] Address:[address] [place], [place] [address]Performed By: #### 26414-9 ####[facility] LABIA [id number] [place], [place] [address]Fvvujjqop (Bld) [#/Vol]0.63 10*3/uLNormal<0.87[facility] on above:Order Comment: Specimen Type: BLOOD SPECIMENOrdering Facility: [facility] Address:[address] [place], [place] [address]Performed By: #### 60596- 8 ####[facility] LABCLIA [id number] [place], [place] [address]Byortmaxu/100 WBC (Bld)7.3 %NormalACMC Healthcare [facility] on above:Order Comment: Specimen Type: BLOOD SPECIMENOrdering Facility: [facility] Address:[address] [place], [place] [address]Performed By: #### 93817-4 ####[facility] LABCLIA [id number] [place], [place] [address]Vbhyjsbeaij (Bld) [#/Vol]5.57 10*3/uLNormal1.45-7.50[facility] on above:Order Comment: Specimen Type: BLOOD SPECIMENOrdering Facility: [facility] Address:[address] [place], [place] [address]Performed By: #### 00528-1 ####[facility] LABCLIA [id number] [place], [place] [address]Uwtqtpjqdps/100 WBC (Bld)64.5 %NormalACMC Healthcare System on above:Order Comment: Specimen Type: BLOOD SPECIMENOrdering Facility: [facility] Address:[address] [place], [place] [address]Performed By: #### 57916-4 ####[facility] LABCLIA [id number] [place], [place] [address]Cinrzjcje RBC (Bld) [#/Vol] 10*3/uLNormal<0.01[facility] on above:Order Comment: Specimen Type: BLOOD SPECIMENOrdering Facility: [facility] Address:[address] [place], [place] [address]Performed By: #### 58545-3 ####[facility] LABCLIA [id number] [place], [place] [address]Kfjhxxufp RBC/100 WBC (Bld) [Ratio]0.0 /100 WBCNormal [facility] on above:Order Comment: Specimen Type: BLOOD SPECIMENOrdering Facility: [facility] Address:[address] [place], [place] [address]Performed By: #### 33008-4 ####[facility] LABIA [id number] [place], [place] [address]Reqxukla mean volume (Bld) [Entitic vol]9.4 fLNormal9.0-12.7CWadsworth-Rittman Hospital on above:Order Comment: Specimen Type: BLOOD SPECIMENOrdering Facility: [facility] Address:[address] [place] [address] Performed By: #### 47060-3 ####[facility] LABCLIA [id number] [place], [place] [address]Wtkgyobwi (Bld) [#/Vol]257 10*3/oCVgptob422-797XsfvkplnqACMC [facility] on above:Order Comment: Specimen Type: BLOOD SPECIMENOrdering Facility: [facility] Address:[address] [place], [place] [address]Performed By: #### 24877-9 ####[facility] LABIA [id number] [place], [place] [address]COD (Bld) [#/Vol]3.71 10*6/uLLow3.90-5.20[facility] on above:Order Comment: Specimen Type: BLOOD SPECIMENOrdering Facility: [facility] Address:[address] [place], [place] [address]Performed By: #### 81720-2 ####[facility]ITALIA [id number] [place], [place] [address]PMY (Bld) [#/Vol]8.64 10*3/uL Normal3.70-11.00[facility] on above:Order Comment: Specimen Type: BLOOD SPECIMENOrdering Facility: [facility] Address:[address] [place], [place] [address]Performed By: #### 62765-3 ####[facility] LABIA [id number] [place], [place] [address]QWNPDUnl 70-96-1560VPIGLPZhxig (SP) Office (HEMASA) SANNA RENDON ([id number]) 1985 F Date Time Provider Department 03/02/25 11:30 AM KATHERINE NEGRETE During your visit today, we recorded the following information about you: Temperature Pulse Respiration Blood pressure 97.2 degrees 73/minute 16/minute 133/79 Weight 97.2 kg Katherine Negrete APRN.CNP 03/02/2025 8:18 PM Signed NAME: Sanna Rendon CLINIC NO.: [id number] DATE OF SERVICE: March 02, 2025 (Penelope) [...] later in 2018. These were found in [place], [place]. 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 NormalTriHealth Bethesda Butler Hospitalprehensive metabolic 2000 panelon 03-02-2025 Albumin [Mass/Vol]4.1 g/dLNormal3.9-4.9CWadsworth-Rittman Hospital on above:Order Comment: Specimen Type: BLOOD SPECIMENOrdering Facility: [facility] Address:[address] [place], [place] [address]Performed By: #### 34965-5 ####[facility] LABCLIA [id number] [place], [place] [address]FQB [Catalytic activity/Vol]64 U/JVljldi69-133 [facility] on above:Order Comment: Specimen Type: BLOOD SPECIMENOrdering Facility: [facility] Address:[address] [place], [place] [address]Performed By: #### 34152-4 ####[facility] LABCLIA [id number] [place], [place] [address]ZQS [Catalytic activity/Vol]10 U/LNormal7-38[facility] on above:Order Comment: Specimen Type: BLOOD SPECIMENOrdering Facility: [facility] Address:[address] [place], [place] [address]Performed By: #### 69656- 8 ####[facility] LABCLIA [id number] [place], [place] [address]Fzzlx gap [Moles/Vol]13 mmol/LNormal8-15[facility] on above:Order Comment: Specimen Type: BLOOD SPECIMENOrdering Facility: [facility] Address:[address] [place], [place] [address]Performed By: #### 40256-2 ####[facility] LABCLIA [id number] [place], [place] [address]AJI [Catalytic activity/Vol]12 U/BIlt87-13ZoxhshgayACMC Healthcare System on above:Order Comment: Specimen Type: BLOOD SPECIMENOrdering Facility: [facility] Address:[address] [place], [place] [address]Performed By: #### 22777-3 ####[facility] LABCLIA [id number] [place] [address] Bilirubin [Mass/Vol]0.2 mg/dLNormal0.2-1.3CWadsworth-Rittman Hospital on above:Order Comment: Specimen Type: BLOOD SPECIMENOrdering Facility: [facility] Address:[address] [place], [place] [address]Performed By: #### 57942-6 ####[facility] LABCLIA [id number] [place], [place] [address]Jmfbzfz [Mass/Vol]10.3 mg/dLHigh8.5-10.2CWadsworth-Rittman Hospital on above:Order Comment: Specimen Type: BLOOD SPECIMENOrdering Facility: [facility] Address:[address] [place], [place] [address]Performed By: #### 86450-5 ####[facility] LABCLIA [id number] [place], [place] [address]Uqpdgnmx [Moles/Vol]97 mmol/TAyr29-153UmlmmqmzbACMC Healthcare System on above:Order Comment: Specimen Type: BLOOD SPECIMENOrdering Facility: [facility] Address:[address] [place], [place] [address]Performed By: #### 60115- 8 ####[facility] LABCLIA [id number] [facility] [place], [place] [address]NP0 [Moles/Vol]21 mmol/JXea28-94TpgfpudhhACMC Healthcare System on above:Order Comment: Specimen Type: BLOOD SPECIMENOrdering Facility: [facility] Address:[address] [place], [place] [address]Performed By: #### 22898-0 ####[facility] LABCLIA [id number] [place], [place] [address]Btrfjmvszs [Mass/Vol]0.54 mg/dL Low0.58-0.96[facility] on above:Order Comment: Specimen Type: BLOOD SPECIMENOrdering Facility: [facility] Address:[address] [place], [place] [address]Performed By: #### 83226-3 ####[facility] LABCLIA [id number] [place] [address] eGFRcr SerPlBld CKD-EPI 3196582 mL/min/1.73m???Normal>=60[facility] on above:Order Comment: Specimen Type: BLOOD SPECIMENOrdering Facility: [facility] Address:[address] [place], [place] [address]Result Comment: Estimated Glomerular Filtration Rate (eGFR) is [...] accurately reflect actual GFR. Performed By: #### 21634-0 ####[facility] LABIA [id number] [place], [place] [address]Jlprxod [Mass/Vol]71 mg/dLLow 74-99[facility] on above:Order Comment: Specimen Type: BLOOD SPECIMENOrdering Facility: [facility] Address:[address] [place], [place] [address]Result Comment: The [place] [employer] (ADA) provides guidance for cutoff [...] Standards of Medical Care in Diabetes 2016, [place] [employer]. Diabetes Care. 2016.39(Suppl 1).Performed By: #### 64437-4 ####[facility] LABCLIA [id number] [place], [place] [address]Ovuteehnx [Moles/Vol]3.9 mmol/LNormal3.7-5.1CWadsworth-Rittman Hospital on above:Order Comment: Specimen Type: BLOOD SPECIMENOrdering Facility: [facility] Address:[address] [place], [place] [address]Performed By: #### 30128-8 ####[facility] LABCLIA [id number] [place], [place] [address]Pbskxte [Mass/Vol]7.2 g/dLNormal6.3-8.0[facility] on above:Order Comment: Specimen Type: BLOOD SPECIMENOrdering Facility: [facility] Address:[address] [place], [place] [address]Performed By: #### 95418- 8 ####[facility] LABCLIA [id number] [place], [place] [address]Nledrp [Moles/Vol]131 mmol/TRwi663-765OqhxxjcymACMC Healthcare System on above:Order Comment: Specimen Type: BLOOD SPECIMENOrdering Facility: [facility] Address:[address] [place], [place] [address]Performed By: #### 41228-7 ####[facility] LABCLIA [id number] [place], [place] [address]Knmg nitrogen [Mass/Vol]9 mg/dL Normal7-21[facility] on above:Order Comment: Specimen Type: BLOOD SPECIMENOrdering Facility: [facility] Address:[address] [place], [place] [address] [address]Performed By: #### 93768-0 ####[facility] LABCLIA [id number] [place] [address] US OB BPP W NON-STRESSon 72-72-6421[place], [place] [address] Ultrasound Report Signed Patient: SANNA RENDON MR#: [id number] : 1985 Acct:[id number] Age/Sex: 39 / F ADM Date: 02/26/25 Loc: US Attending Dr: Wilton Herrmann D.O. Ordering Physician: Wilton Herrmann D.O. Date of Service: 02/26/25 Procedure(s): US OB BPP w non-stress Accession Number(s): [id number] cc: Wilton Herrmann D.O.; Physician,Non-Staff M.DLazara The [place] [address] Patient Name: SANNA RENDON MRN: [id number] date: 1985 Sex: F Assigned Patient Location: US Current Patient Location: Accession/Order Number: [id number] Exam Date: 02/26/2025 19:42 Report Date: 02/27/2025 [...] Pisano M.D. 02/27/2025 10:53 AM Dictation Location: [place] [address] Electronically authenticated by: [id number] Y Date: 02/27/2025 10:53 Dictated By: Pamela Pisano M.D. Signed By: 02/27/25 1056 DD/ 1053 TD/TT: Folder Machine Adjuster:MANUELHRadiology, Radiologist, - 02/27/2025 [place] [address] Ultrasound Report Signed Patient: SANNA RENDON MR#: [id number] : 1985 Acct:[id number] Age/Sex: 39 / F ADM Date: 02/26/25 Loc: US Attending Dr: Wilton Herrmann D.O. Ordering Physician: Wilton Herrmann D.O. Date of Service: 02/26/25 Procedure(s): US OB BPP w non-stress Accession Number(s): [id number] cc: Wilton Herrmann D.O.; Physician,Non-Staff Tamia The [address] [id number] Patient Name: SANNA RENDON MRN: [id number] date: 1985 Sex: F Assigned Patient Location: Current Patient Location: Accession/Order Number: [id number] Exam Date: 02/26/2025 19:42 Report Date: 02/27/2025 [...] Pisano M.D. 02/27/2025 10:53 AM Dictation Location: [place] [address] Electronically authenticated by: [id number] Y Date: 02/27/2025 10:53 Dictated By: Pamela Pisano M.D. Signed By: 02/27/25 1056 DD/ 1053 TD/TT: Folder Machine Adjuster: [facility] HealthcareRadiology Study observation (narrative)[facility] HealthcareUS OB BPP W NON-STRESSOrdered By: Radiologist Radiology on 99-84-6731QGHISaint Mary's Hospital of [facility] Work Phone: Urinalysis macro (dipstick) panel (U)on [...] - 1.03[facility] Urobilinogen, UA0.20.2 - 12 mg/dLNOPemiscot Memorial Health SystemsNOPemiscot Memorial Health SystemsNo Panel InformationOrdered By: Radiologist Radiology on 25-19-4375SCVZSaint Mary's Hospital of [facility] Work Phone: No Panel Informationon 68-61-5072Tarwqadqc Study observation (narrative)SHILOH BrowningUS OB BPP W NON-STRESSon 02-20-2025 [place] [address] Ultrasound Report Signed Patient: SANNA RENDON MR#: [id number] : 1985 Acct:[id number] Age/Sex: 39 / F ADM Date: 02/19/25 Loc: US Attending Dr: Wilton Herrmann D.O. Ordering Physician: Wilton Herrmann D.O. Date of Service: 02/19/25 Procedure(s): US OB BPP w non-stress Accession Number(s): [id number] cc: Wilton Herrmann D.O.; Physician,Non-Staff M.DLazara The [place] [id number] Patient Name: SANNA RENDON MRN: [id number] date: 1985 Sex: F Assigned Patient Location: LAB Current Patient Location: Accession/Order Number: [id number] Exam Date: 02/19/2025 19:47 Report Date: 02/20/2025 [...] Pisano M.D. 02/20/2025 8:37 AM Dictation Location: [place] [address] Electronically authenticated by: [id number] Y Date: 02/20/2025 08:37 Dictated By: Pamela Pisano M.D. Signed By: 02/20/25 0840 DD/ 0837 TD/TT: Folder Machine Adjuster:TBHRadiology, Radiologist, - 02/20/2025 [place] [address] Ultrasound Report Signed Patient: SANNA RENDON MR#: [id number] : 1985 Acct:[id number] Age/Sex: 39 / F ADM Date: 02/19/25 Loc: US Attending Dr: Wilton Herrmann D.O. Ordering Physician: Wilton Herrmann D.O. Date of Service: 02/19/25 Procedure(s): US OB BPP w non-stress Accession Number(s): [id number] cc: Wilton Herrmann D.O.; Physician,Non-Staff Tamia The [place] [id number] Patient Name: SANNA RENDON MRN: [id number] date: 1985 Sex: F Assigned Patient Location: LAB Current Patient Location: Accession/Order Number: [id number] Exam Date: 02/19/2025 19:47 Report Date: 02/20/2025 [...] Pisano M.D. 02/20/2025 8:37 AM Dictation Location: [place] [address] Electronically authenticated by: [id number] Y Date: 02/20/2025 08:37 Dictated By: Pamela Pisano M.D. Signed By: 02/20/25 0840 DD/ 0837 TD/TT: Folder Machine Adjuster: SHILOH Ibanez OB GROWTHon [id number] [address] Ultrasound Report Signed Patient: SANNA RENDON MR#: [id number] : 1985 Acct:[id number] Age/Sex: 39 / F ADM Date: 02/19/25 Loc: US Attending Dr: Wilton Herrmann D.O. Ordering Physician: Wilton Herrmann D.O. Date of Service: 02/19/25 Procedure(s): US OB growth Accession Number(s): [id number] cc: Wilton Herrmann D.O.; Physician,Non-Staff M.Ashvin [facility] [place] [id number] Patient Name: SANNA RENDON MRN: [id number] date: 1985 Sex: F Assigned Patient Location: LAB Current Patient Location: Accession/Order Number: [id number] Exam Date: 02/19/2025 19:47 Report Date: 02/20/2025 [...] Pisano M.D. 02/20/2025 8:37 AM Dictation Location: [place] [address] Electronically authenticated by: [id number] Y Date: 02/20/2025 08:37 Dictated By: Pamela Pisano M.D. Signed By: 02/20/25839 DD/ 6 TD/TT: Folder Machine Adjuster:TBHRadiology, Radiologist, - 02/20/2025 [place] [address] Ultrasound Report Signed Patient: SANNA RENDON MR#: [id number] : 1985 Acct:[id number] Age/Sex: 39 / F ADM Date: 02/19/25 Loc: US Attending Dr: Wilton Herrmann D.O. Ordering Physician: Wilton Herrmann D.O. Date of Service: 02/19/25 Procedure(s): US OB growth Accession Number(s): [id number] cc: Wilton Herrmann D.O.; Physician,Non-Staff Tamia [facility] [place] [id number] Patient Name: SANNA RENDON MRN: [facility]:[id number] date: 1985 Sex: F Assigned Patient Location: LAB Current Patient Location: Accession/Order Number: [id number] Exam Date: 02/19/2025 19:47 Report Date: 02/20/2025 [...] Pisano M.D. 02/20/2025 8:37 AM Dictation Location: [place] [address] Electronically authenticated by: [id number] Y Date: 02/20/2025 08:37 Dictated By: Pamela Pisano M.D. Signed By: 02/20/25 0840 DD/ TD/TT: Folder Machine Adjuster: SHILOH Colon CBC WITH AUTO DIFFon 65-37-5949XWRUAHTWI ABSOLUTE AUTO0.0NOMS HealthcareBasophils/100 WBC (Bld)0.2 %0.2 - 2.0 %SHILOH HealthcareEosinophils/100 WBC (Bld)0.3 %Low0.9 - 7.0 %NOMS HealthcareErythrocyte distribution width (RBC) [Ratio]13.1 %11.0 - 15.0 %NOMS HealthcareHematocrit (Bld) [Volume fraction]34.6 %Low36.0 - 48.0 %NOM HealthcareHemoglobin (Bld) [Mass/Vol]12.1 g/dL12.0 - 16.0 g/dLNOMN HealthcareIMMATURE GRANULOCYTES ABS AUTO0.06HighNOMN HealthcareImmature granulocytes/100 WBC (Bld)0.6 %High0.0 - 0.5 %NOMS HealthcareInterpretation and review of laboratory resultsAbnormalNOMN HealthcareLYMPHOCYTES ABSOLUTE AUTO2.3 NOM HealthcareLymphocytes/100 WBC (Bld)24.3 %20.5 - 60.0 %[facility] HospitalH (RBC) [Entitic mass]31.7 pg26.7 - 34.0 pgNOPemiscot Memorial Health SystemsMCHC (RBC) [Mass/Vol] 35.0 g/dL29.9 - 35.2 g/dLSaint Mary's Hospital of Blue SpringsMCV (RBC) [Entitic vol]90.6 fL81.0 - 99.0 fLNOMN HealthcareMONOCYTES ABSOLUTE AUTO0.5NOMS HealthcareMonocytes/100 WBC (Bld)5.6 %1.7 - 12.0 %NOM HealthcareNEUTROPHILS ABSOLUTE AUTO6.6HighNOMS HealthcareNeutrophils/100 WBC (Bld)69.0 %43.0 - 75.0 %[facility] HealthcarePlatelet mean volume (Bld) [Entitic vol]9.7 fL9.5 - 13.5 fLNOPemiscot Memorial Health SystemsTBH EO #0.0NOMS [facility] HospitalTB WUK729DHDO [facility] HospitalTB RBC3.82LowNOMS [facility] HospitalTB WBC9.6NOMN HealthcareCLINISYNCNOMS HealthcareUrinalysis macro (dipstick) panel (U)on 12-03-0333Ibkqyzjbf, UANegativeNegative - 4(70) +++ mg/dLNOMS HealthcareBlood, UANegativeNegative - 50 Max/mcLNOMS HealthcareClarity, UAClearNOMS Healthcare Color, UAYellowNOMS HealthcareGlucose, UANegativeNegative - 2000(110) ++++ mg/dL NOMS HealthcareInterpretation and review of laboratory resultsAbnormalNOMN HealthcareKetones, UANegativeNegative - 160(16) ++++ mg/dLNOMN Healthcare Leukocytes, UATraceNegative - 500+++ John/mcLNOMN HealthcareNitrite, UANegative Negative - PositiveNOMS HealthcarepH, UA6.55 - 9NOMS HealthcareProtein, UA NegativeNegative - 2000(20) ++++ mg/dLNOMS HealthcareSpec Grav, UA1.0051 - 1.03 NOMS HealthcareUrobilinogen, UA2.00.2 - 12 mg/dLNOMS HealthcareNOMS Healthcare CNPNon 59-40-1484BAALDqhbaqwsj ([place]) SANNA RENDON ([id number]) 1985 F Date Time Provider Department 01/29/25 [...] Date Reviewed: 12/24/2024 Reviewed by: Katherine Negrete APRN.RECEIVING MANAGER - Fully Assessed Reason for Visit: Fatigue [...] 05/28/2024 Encounter Status:Closed by RACHAEL JOHNSON on 01/30/25[facility]PNon 91-31-5996OAMUEzjwtlngh ([place]) SANNA RENDON ([id number]) 1985 F Date Time Provider Department 01/26/25 [...] Date Reviewed: 12/24/2024 Reviewed by: Penelope, Katherine, INSTRUCTIONAL SPECIALIST.RECEIVING MANAGER - Fully Assessed Prescriptions as of 01/26/2025 [...] 05/28/2024 Encounter Status:Closed by RACHAEL JOHNSON on 01/26/25NoalCRegional Medical CenterUrinalysis macro (dipstick) panel (U)on 83-29-7060Ggtozsbqz, UANegative Negative - 4(70) +++ mg/dLNOMS HealthcareBlood, UANegativeNegative - 50 Max/mcL NOMS HealthcareClarity, UAClearNOMN HealthcareColor, UAYellowNOMN Healthcare Glucose, UANegativeNegative - 2000(110) ++++ mg/dLNOMS HealthcareInterpretation and review of laboratory resultsNormalNOMN HealthcareKetones, UANegativeNegative - 160(16) ++++ mg/dLNOMS HealthcareLeukocytes, UANegativeNegative - 500+++ John/mcLNOMS HealthcareNitrite, UANegativeNegative - PositiveNOMS HealthcarepH, UA65 - 9NOMS HealthcareProtein, UANegativeNegative - 2000(20) ++++ mg/dLNOMS HealthcareSpec Grav, UA1.011 - 1.03NOMS HealthcareUrobilinogen, UA0.20.2 - 12 mg/dLNOMS HealthcareNOMS HealthcareTSHon 24-55-7788EVY Qn1.85 m[IU]/LNormal 0.34-5.60[facility]ther [facility] Harbor HospitalComment on above:Performed By: #### [id number] #### Braulio [facility] [address] [place], [place] [address]Jsoqjjoipf macro (dipstick) panel (U)on 05-53-5944Wajpkmuim, UA NegativeNegative - 4(70) +++ mg/dLNOMS HealthcareBlood, [...] HealthcareNOMS HealthcareCBC W Auto Differential panel (Bld)on 48-91-7349Qncoqoqtu (Bld) [#/Vol]10*3/uLNormal<0.11CRegional Medical CenterComment on above:Order Comment: Specimen Type: BLOOD SPECIMENOrdering Facility: [facility] Address:[address] [place], [place] [address]Sqsuatwea By: #### 49002-7 ####[facility] LABCLIA [id number] [place], [place] [address]Ullyulhjh/100 WBC (Bld)0.2 % NormalACMC Healthcare System on above:Order Comment: Specimen Type: BLOOD SPECIMENOrdering Facility: [facility] Address:[address] [place], [place] [address]Performed By: #### 76452-1 ####[facility] LABCLIA [id number] [place] [address] Differential cell count method Nom (Bld)AutoNormalClevelFormerly [facility], [facility] Comment on above:Order Comment: Specimen Type: BLOOD SPECIMENOrdering Facility: [facility] Address:[address] [place] [address] Performed By: #### 42467-1 ####[facility] LABCLIA [id number] [place], [place] [address]Gjnmrgvoiau (Bld) [#/Vol]0.03 10*3/uLNormal<0.46[facility] on above:Order Comment: Specimen Type: BLOOD SPECIMENOrdering Facility: [facility] Address:[address] [place], [place] [address]Performed By: #### 06205-9 ####[facility] LABCLIA [id number] [place], [place] [address]Sgrrmhxzpzm/100 WBC (Bld)0.4 %NormalACMC Healthcare System on above:Order Comment: Specimen Type: BLOOD SPECIMENOrdering Facility: [facility] Address:[address] [place], [place] [address]Performed By: #### 31863-0 ####[facility] LABIA [id number] [place], [place] [address]Dbcyiqmkgzd distribution width (RBC) [Ratio]13.5 %Iqpzvk79.5-15.0[facility] on above: Order Comment: Specimen Type: BLOOD SPECIMENOrdering Facility: [facility] Address:[address] [place], [place] [address]Performed By: #### 77693- 8 ####[facility] LABCLIA [id number] [place], [place] [address]Bvjxbxitfk (Bld) [Volume fraction]34.6 %Low36.0-46.0 [facility] on above:Order Comment: Specimen Type: BLOOD SPECIMENOrdering Facility: [facility] Address:[address] [place], [place] [address]Performed By: #### 70468-5 ####[facility] LABCLIA [id number] [place], [place] [address]Lhbufuhafw (Bld) [Mass/Vol]12.0 g/hSPccdge18.5-15.5CWadsworth-Rittman Hospital on above: Order Comment: Specimen Type: BLOOD SPECIMENOrdering Facility: [facility] Address:[address] [place], [place] [address]Performed By: #### 21190- 8 ####[facility] LABCLIA [id number] [place], [place] [address]Rgsdvlkl granulocytes (Bld) [#/Vol]0.04 10*3/uLNormal <0.10[facility] on above:Order Comment: Specimen Type: BLOOD SPECIMENOrdering Facility: [facility] Address:[address] [place], [place] [address]Performed By: #### 14321-6 ####[facility] LABCLIA [id number] [place], [place] [address]Eiaitfgt granulocytes/100 WBC (Bld)0.5 %NormalACMC Healthcare System on above: Order Comment: Specimen Type: BLOOD SPECIMENOrdering Facility: [facility] Address:[address] [place], [place] [address]Performed By: #### 02118- 8 ####[facility] LABCLIA [id number] [place], [place] [address]Qkmphnupvej (Bld) [#/Vol]2.45 10*3/uLNormal1.00-4.00 [facility] on above:Order Comment: Specimen Type: BLOOD SPECIMENOrdering Facility: [facility] Address:[address] [place], [place] [address]Performed By: #### 70253-2 ####[facility] LABCLIA [id number] [place], [place] [address]Nkxemtknbrc/100 WBC (Bld)28.7 %NormalACMC Healthcare System on above:Order Comment: Specimen Type: BLOOD SPECIMENOrdering Facility: [facility] Address:[address] [place], [place] [address]Performed By: #### 20604-5 ####[facility] LABCLIA [id number] [place], [place] [address]IXM (RBC) [Entitic mass]31.6 tzAqmwxq44.0-34.0[facility] on above:Order Comment: Specimen Type: BLOOD SPECIMENOrdering Facility: [facility] Address:[address] [place], [place] [address]Performed By: #### 35209-6 ####[facility] LABCLIA [id number] [place], [place] [address]GANH (RBC) [Mass/Vol]34.7 g/oJQulshp16.5-36.0[facility] on above: Order Comment: Specimen Type: BLOOD SPECIMENOrdering Facility: [facility] Address:[address] [place], [place] [address]Performed By: #### 40010- 8 ####[facility] LABCLIA [id number] [place], [place] [address]WTG (RBC) [Entitic vol]91.1 vBHfuqcc79.0-100.0[facility] on above:Order Comment: Specimen Type: BLOOD SPECIMENOrdering Facility: [facility] Address:[address] [place], [place] [address]Performed By: #### 11408-8 ####[facility] LABCLIA [id number] [place], [place] [address]Qdzwzxhim (Bld) [#/Vol]0.44 10*3/uLNormal<0.87[facility] on above:Order Comment: Specimen Type: BLOOD SPECIMENOrdering Facility: [facility] Address:[address] [place], [place] [address]Performed By: #### 34015- 8 ####[facility] LABCLIA [id number] [place], [place] [address]Psoflidte/100 WBC (Bld)5.1 %NormalACMC Healthcare System on above:Order Comment: Specimen Type: BLOOD SPECIMENOrdering Facility: [facility] Address:[address] [place], [place] [address]Performed By: #### 52618-6 ####[facility] LABCLIA [id number] [place], [place] [address]Qzfejfpxjnk (Bld) [#/Vol]5.57 10*3/uLNormal1.45-7.50[facility] on above:Order Comment: Specimen Type: BLOOD SPECIMENOrdering Facility: [facility] Address:[address] [place], [place] [address]Performed By: #### 26668-5 ####[facility] LABCLIA [id number] [place], [place] [address]Wkzticyoepj/100 WBC (Bld)65.1 %NormalACMC Healthcare System on above:Order Comment: Specimen Type: BLOOD SPECIMENOrdering Facility: [facility] Address:[address] [place], [place] [address]Performed By: #### 32960-6 ####[facility] LABCLIA [id number] [place], [place] [address]Zlncqidud RBC (Bld) [#/Vol] 10*3/uLNormal<0.01[facility] on above:Order Comment: Specimen Type: BLOOD SPECIMENOrdering Facility: [facility] Address:[address] [place], [place] [address]Performed By: #### 12891-4 ####[facility] LABCLIA [id number] [place], [place] [address]Irwrwybiz RBC/100 WBC (Bld) [Ratio]0.0 /100 WBCNormal [facility] on above:Order Comment: Specimen Type: BLOOD SPECIMENOrdering Facility: [facility] Address:[address] [place], [place] [address]Performed By: #### 83166-4 ####[facility] LABIA [id number] [place], [place] [address]Ztlxshgp mean volume (Bld) [Entitic vol]9.7 fLNormal9.0-12.7CWadsworth-Rittman Hospital on above:Order Comment: Specimen Type: BLOOD SPECIMENOrdering Facility: [facility] Address:[address] [place] [address] Performed By: #### 97526-3 ####[facility] LABCLIA [id number] [place], [place] [address]Djtbdkall (Bld) [#/Vol]260 10*3/xQGvtrgc747-682SdallsrdlACMC Healthcare System on above:Order Comment: Specimen Type: BLOOD SPECIMENOrdering Facility: [facility] Address:[address] [place], [place] [address]Performed By: #### 38458-4 ####[facility] LABCLIA [id number] [place], [place] [address]RCW (Bld) [#/Vol]3.80 10*6/uLLow3.90-5.20[facility] on above:Order Comment: Specimen Type: BLOOD SPECIMENOrdering Facility: [facility] Address:[address] [place], [place] [address]Glnpewmlt By: #### 86423-2 ####[facility]OSPITALIA [id number] [place], [place] [address]HZE (Bld) [#/Vol]8.55 10*3/uL Normal3.70-11.00Glenbeigh HospitalComselect specialty hospital on above:Order Comment: Specimen Type: BLOOD SPECIMENOrdering Facility: [facility] Address:[address] [place] [address]Gkenonpmy By: #### 44864-5 ####[facility] LABCLIA [id number] [place], [place] [address]HNCHGZzm 85-12-7204ADPPYMYsllh (SP) Office ([place]) SANNA RENDON ([id number]) 1985 F Date Time Provider Department 12/23/24 11:30 AM KATHERINE NEGRETE During your visit today, we recorded the following information about you: Temperature Pulse Respiration Blood pressure 97.6 degrees 80/minute 16/minute 103/69 Weight Height 94.4 kg 1.677 m Katherine Negrete APRN.RECEIVING MANAGER 12/24/2024 9:07 PM Signed NAME: Sanna Rendon CLINIC NO.: [id number] DATE OF SERVICE: December 23, 2024 (Penelope) [...] later in 2018. These were found in [place], [place]. I don't have access to these [...] rash shortly before presenting to [facility] in 2015 with headaches and [...] not included)...Normal [facility] HospitalComprehensive metabolic 2000 panelon 85-68-1862Tkliape [Mass/Vol]4.1 g/dLNormal3.9-4.9CWadsworth-Rittman Hospital on above:Order Comment: Specimen Type: BLOOD SPECIMENOrdering Facility: [facility] Address:[address] [place] [address]Performed By: #### 41148- 8 ####[facility] LABCLIA [id number] FABI DUMONTVERDE VALLEY MEDICAL CENTERVANESSABIG [place], [place] [address]QZR [Catalytic activity/Vol]43 U/YSohpjv10-095YxkneyswaACMC Healthcare System on above:Order Comment: Specimen Type: BLOOD SPECIMENOrdering Facility: [facility] Address:[address] [place], [place] [address]Performed By: #### 76802-8 ####[facility] LABCLIA [id number] FABI GREENSEVERDE VALLEY MEDICAL CENTERTEETEEMI [place], [place] [address]EMJ [Catalytic activity/Vol]11 U/LNormal7-38[facility] on above:Order Comment: Specimen Type: BLOOD SPECIMENOrdering Facility: [facility] Address:[address] [place], [place] [address]Performed By: #### 90224- 8 ####[facility] LABCLIA [id number] [facility] [place], [place] [address]Asyxt gap [Moles/Vol]12 mmol/LNormal8-15[facility] on above:Order Comment: Specimen Type: BLOOD SPECIMENOrdering Facility: [facility] Address:[address] [place], [place] [address]Performed By: #### 85886-0 ####[facility] LABCLIA [id number] FABI CHERRYVERDE VALLEY MEDICAL CENTERVANESSABIG [place], [place] [address]JVJ [Catalytic activity/Vol]12 U/UQpy21-45ZegslfxdgACMC Healthcare System on above:Order Comment: Specimen Type: BLOOD SPECIMENOrdering Facility: [facility] Address:[address] [place], [place] [address]Performed By: #### 38691-8 ####[facility] LABCLIA [id number] [facility] PETERSEVERDE VALLEY MEDICAL [place] [address] Bilirubin [Mass/Vol]0.2 mg/dLNormal0.2-1.3CWadsworth-Rittman Hospital on above:Order Comment: Specimen Type: BLOOD SPECIMENOrdering Facility: [facility] Address:[address] [place], [place] [address]Performed By: #### 11104-0 ####[facility] LABCLIA [id number] [facility] [place]ENTERSEELA[place], [place] [address]Tfmmqkb [Mass/Vol]9.5 mg/dLNormal8.5-10.2CWadsworth-Rittman Hospital on above:Order Comment: Specimen Type: BLOOD SPECIMENOrdering Facility: [facility] Address:[address] [place], [place] [address]Performed By: #### 12789-7 ####[facility] LABCLIA [id number] [place], [place] [address]Zgduwcuy [Moles/Vol]98 mmol/SAwbfua13-490JgsklruavACMC Healthcare System on above:Order Comment: Specimen Type: BLOOD SPECIMENOrdering Facility: [facility] Address:[address] [place], [place] [address]Performed By: #### 72770- 8 ####[facility] LABCLIA [id number] [facility] [place], [place] [address]JG6 [Moles/Vol]20 mmol/OXor28-46VygmzmjxsACMC Healthcare System on above:Order Comment: Specimen Type: BLOOD SPECIMENOrdering Facility: [facility] Address:[address] [place], [place] [address]Performed By: #### 52276-8 ####[facility] LABCLIA [id number] [place], [place] [address]Rpzkpzqzhl [Mass/Vol]0.54 mg/dL Low0.58-0.96[facility] on above:Order Comment: Specimen Type: BLOOD SPECIMENOrdering Facility: [facility] Address:[address] [place], [place] [address]Performed By: #### 63531-1 ####[facility] LABCLIA [id number] [facility] [place] [address] eGFRcr SerPlBld CKD-EPI 8752387 mL/min/1.73m???Normal>=60[facility] on above:Order Comment: Specimen Type: BLOOD SPECIMENOrdering Facility: [facility] Address:[address], [place] [address]Valymz Comment: Estimated Glomerular Filtration Rate (eGFR) is [...] accurately reflect actual GFR. Performed By: #### 53121-6 ####[facility] LABCLIA [id number] [place], [place] [address]Sazivco [Mass/Vol]104 mg/dLHigh 74-99[facility] on above:Order Comment: Specimen Type: BLOOD SPECIMENOrdering Facility: [facility] Address:[address] [place] [address]Upaous Comment: The [place] Diabetes Association (ADA) provides guidance for cutoff [...] Standards of Medical Care in Diabetes 2016, [place] [employer]. Diabetes Care. 2016.39(Suppl 1).Performed By: #### 92399-4 ####[facility] LABCLIA [id number] [place], [place] [address]Chhbtapck [Moles/Vol]4.0 mmol/LNormal3.7-5.1CWadsworth-Rittman Hospital on above:Order Comment: Specimen Type: BLOOD SPECIMENOrdering Facility: [facility] Address:[address], [place] [address]Yjncpjsfb By: #### 92225-1 ####[facility] LABCLIA [id number] [place], [place] [address]Xcxyyvv [Mass/Vol]6.7 g/dLNormal6.3-8.0[facility] on above:Order Comment: Specimen Type: BLOOD SPECIMENOrdering Facility: [facility] Address:[address] [place], [place] [address]Performed By: #### 63170- 8 ####[facility] LABCLIA [id number] [place], [place] [address]Ztklpy [Moles/Vol]130 mmol/EUya710-403UjhekuulvACMC Healthcare System on above:Order Comment: Specimen Type: BLOOD SPECIMENOrdering Facility: [facility] Address:[address] [place], [place] [address]Performed By: #### 46819-9 ####[facility] LABCLIA [id number] [place], [place] [address]Mktd nitrogen [Mass/Vol]7 mg/dL Normal7-21[facility] on above:Order Comment: Specimen Type: BLOOD SPECIMENOrdering Facility: [facility] Address:[address] [place], [place] [address]Performed By: #### 46656-0 ####[facility] LABCLIA [id number] [place] [address] Ferritin SerPl-mCncon 65-66-8071Dskrtstj [Mass/Vol]43.5 ng/kAXhkjvk50.7-205.1 [facility] on above:Order Comment: Specimen Type: BLOOD SPECIMENOrdering Facility: [facility] Address:[address] [place], [place] [address]Performed By: #### 60631-2, 2276-4, 2132-9 ####[facility] LABCLIA [id number] [place] [address] [place] OF AMERICAIron and Iron binding capacity panelon 08-26-2025 Iron [Mass/Vol]80 ug/vQJtmkua20-012KkrpzfhlqACMC Healthcare System on above: Order Comment: Specimen Type: BLOOD SPECIMENOrdering Facility: [facility] Address:[address] [place], [place] [address]Performed By: #### 65592- 8, 2275-07, 2131-12 ####[facility] LABCLIA [id number] [address] AMERICAIron binding capacity [Mass/Vol]437 ug/vHGadl936-091EcvpmghsrACMC Healthcare System on above:Order Comment: Specimen Type: BLOOD SPECIMENOrdering Facility: [facility] Address:[address] [place], [place] [address]Performed By: #### 71296- 8, 2275-07, 2131-12 ####[facility] LABCLIA [id number] [address]Iron/TIBC [Molar ratio]18.3 %Uvplbs56.0-57.0[facility] on above:Order Comment: Specimen Type: BLOOD SPECIMENOrdering Facility: [facility] Address:[address] [place], [place] [address]Performed By: #### 41491- 8, 2275-07, 2131-12 ####[facility] LABCLIA [id number] [place] [id number] [facility] AMERICAVit B12 [facility] 41-98-3724Xdotlooig (Vitamin B12) [Mass/Vol]328 pg/aLOoqalo874-4446FrahmymquWadsworth-Rittman Hospital on above:Order Comment: Specimen Type: BLOOD SPECIMENOrdering Facility: [facility] Address:[address] [place], [place] [address]Performed By: #### 92096-5, 2275-07, 2131-12 ####[facility] LABCLIA [id number] [place] [id number] [facility] CENTERTB UA (CLEAN/CATCH) SUPERVISOR INCISING/MICRO IF IND.on 81-12-3886KSXMNFGTW URINENegativeNEGATIVENOMS HealthcareBLOOD URINENegative NEGATIVENOMS HealthcareClarity (U)CLEARCLEARNOMS HealthcareColor (U)LT. YELLOW YELLOWNOMS HealthcareGLUCOSE URINE UANegativeNEGATIVE mg/dLNOMS Healthcare Interpretation and review of laboratory resultsAbnormalNOMS HealthcareKetones Ql (U)NegativeNEGATIVE mg/dLNOMS HealthcareLeukocyte esterase Test strip Ql (U) SMALLAbnormalNEGATIVENOMS HealthcareNITRITE URINENegativeNEGATIVENOMS Healthcare pH (U)6.0 [pH]5.0 - 9.0NOMS HealthcarePROTEIN URINENegativeNEG/TRACE mg/dLNOMS HealthcareSPECIFIC GRAVITY URINE<=1.631Fwdliobf9.005 - 1.025NOMS HealthcareURINE MICROSCOPIC INDICATEDYESNOMS HealthcareUROBILINOGEN URINE0.2 EU/dL0.2 - 1.0 EU/dLNOMN HealthcareCLINISYNCNOMS HealthcareUS OB CERVICAL LENGTHon 12-16-[address] [address] Ultrasound Report Signed Patient: SANNA RENDON MR#: [id number] : 1985 Acct:[id number] Age/Sex: 39 / F ADM Date: Loc: [facility] 251-[address]: Wilton Herrmann D.O. Ordering Physician: Wilton Herrmann D.O. Date of Service: 12/16/24 Procedure(s): US OB cervical length Accession Number(s): [id number] cc: Wilton Herrmann D.O.; PENELOPE CASAS [address] [address] Patient Name: SANNA RENDON MRN: [id number] date: 1985 Sex: F Assigned Patient Location: [facility] Current Patient Location: Accession/Order Number: [id number] Exam Date: 12/16/2024 20:39 Report Date: 12/16/2024 [...] Beltrán M.D. 12/16/2024 8:41 PM Dictation Location: ShareThis Electronically authenticated by: [id number] Y Date: 12/16/2024 20:41 Dictated By: Robert Beltrán D.O. Signed By: 12/16/242042 DD/ 40 TD/TT: Folder Machine Adjuster:ELVERadiologcarmen Radiologist, - 12/16/2024 [place] [address] Ultrasound Report Signed Patient: SANNA RENDON MR#: [id number] : 1985 Acct:[id number] Age/Sex: 39 / F ADM Date: Loc: [facility] [address]: Wilton Herrmann D.O. Ordering Physician: Wilton Herrmann D.O. Date of Service: 12/16/24 Procedure(s): US OB cervical length Accession Number(s): [id number] cc: Wilton Herrmann D.O.; PENELOPE CASAS [place] [address] Patient Name: SANNA RENDON MRN: [id number] date: 1985 Sex: F Assigned Patient Location: [facility] Current Patient Location: Accession/Order Number: [id number] Exam Date: 12/16/2024 20:39 Report Date: 12/16/2024 [...] Beltrán M.D. 12/16/2024 8:41 PM Dictation Location: ShareThis Electronically authenticated by: [id number] Y Date: 12/16/2024 20:41 Dictated By: Robert Beltrán D.O. Signed By: 12/16/242042 DD/ 40 TD/TT: Folder Machine Adjuster: SHILOH HealthcareRadiology Study observation (narrative)NOMS HealthcareUS OB CERVICAL LENGTHOrdered By: Radiologist Radiology on [id number] Mary's Hospital [facility] Work Phone: aLL THYROID STIM HORMONEon [id number] Qn1.508 m[IU]/LNOMS HealthcareCLINISYNCNOMS HealthcareUrinalysis macro (dipstick) panel (U)on [id number], UANegativeNegative - 4(70) +++ mg/dLNOMN Healthcare Blood, UANegativeNegative - 50 Max/mcLNOMN HealthcareClarity, UAClearNOMS HealthcareColor, UAYellowNOMS HealthcareGlucose, UANegativeNegative - 2000(110) ++++ mg/dLNOMN HealthcareInterpretation and review of laboratory resultsNormal NOM HealthcareKetones, UANegativeNegative - 160(16) ++++ mg/dLNOMN Healthcare Leukocytes, UANegativeNegative - 500+++ John/mcLNOMN HealthcareNitrite, UA NegativeNegative - PositiveNOMS HealthcarepH, UA65 - 9NOMS HealthcareProtein, UA NegativeNegative - 2000(20) ++++ mg/dLNOMN HealthcareSpec Grav, UA1.011 - 1.03 NOMS HealthcareUrobilinogen, UA1.00.2 - 12 mg/dLNOMN HealthcareNOMN Healthcare Urinalysis macro (dipstick) panel (U)on 24-09-9982Pibofhtjk, UANegativeNegative - 4(70) +++ mg/dLNOMS HealthcareBlood, UANegativeNegative [...] 12 mg/dLNOMS HealthcareNOMS HealthcareGlucose random or fasting- [facility] [place] 11-19-2024 External Glucose Fasting Or Random (Fbs)94[facility]KiskiUrinalysis macro (dipstick) panel (U)on 59-86-6196Syrfqzztk, UA NegativeNegative - 4(70) +++ mg/dLNOMS HealthcareBlood, [...] 1.03NOMS HealthcareUrobilinogen, UA0.20.2 - 12 mg/dLNOMS HealthcareNOMS Svkthdhryj08([place])D3 SerPl-[facility] Danvilleon 47-40-357126221360-wqpvbvfqlpmbvz D3 [Mass/Vol]32.1 ng/tGNzcndg60.0-80.0[facility] on above:Order Comment: Specimen Type: BLOOD SPECIMENOrdering Facility: [facility] Address:[address] [place], [place] [address]Result Comment: Classification of 25 [place] Vitamin D status: Deficiency/Insufficiency: < or = 30 ng/ml. Sufficiency/Optimal Levels: 31-80 ng/mL Toxicity: > 100 ng/mL. Test performed by chemiluminescent immunoassay.Performed By: #### 1989-3 ####[facility] LABCLIA [id number] [address] Auto Differential panel (Bld)on 92-55-1674Fifzsacho (Bld) [#/Vol]0.03 10*3/uLNormal<0.11CRegional Medical CenterComment on above:Order Comment: Specimen Type: BLOOD SPECIMENOrdering Facility: [facility] Address:[address] [place], [place] [address]Performed By: #### 01547-1 ####[facility] LABIA [id number] [place], [place] [address]Arpciefaz/100 WBC (Bld)0.3 % NormalACMC Healthcare System on above:Order Comment: Specimen Type: BLOOD SPECIMENOrdering Facility: [facility] Address:[address] [place], [place] [address]Performed By: #### 17734-1 ####[facility] LABCLIA [id number] [place] [address] Differential cell count method Nom (Bld)AutoNormalCRegional Medical Center Comment on above:Order Comment: Specimen Type: BLOOD SPECIMENOrdering Facility: [facility] Address:[address] [place] [address] Performed By: #### 31181-9 ####[facility] LABCLIA [id number] [place], [place] [address]Pzawjygvalh (Bld) [#/Vol]0.05 10*3/uLNormal<0.46[facility] on above:Order Comment: Specimen Type: BLOOD SPECIMENOrdering Facility: [facility] Address:[address] [place], [place] [address]Performed By: #### 01458-2 ####[facility] LABCLIA [id number] [place], [place] [address]Mafpjvpexpq/100 WBC (Bld)0.5 %NormalACMC Healthcare System on above:Order Comment: Specimen Type: BLOOD SPECIMENOrdering Facility: [facility] Address:[address] [place], [place] [address]Performed By: #### 18912-3 ####[facility] LABCLIA [id number] [place], [place] [address]Btdcnspivkt distribution width (RBC) [Ratio]14.5 %Jrjvxw23.5-15.0[facility] on above: Order Comment: Specimen Type: BLOOD SPECIMENOrdering Facility: [facility] Address:[address] [place], [place] [address]Performed By: #### 92463- 8 ####[facility] LABCLIA [id number] [place], [place] [address]Xraunpbmcl (Bld) [Volume fraction]36.9 %Wioopl24.0-46.0 [facility] on above:Order Comment: Specimen Type: BLOOD SPECIMENOrdering Facility: [facility] Address:[address] [place], [place] [address]Performed By: #### 97093-9 ####[facility] LABIA [id number] [place], [place] [address]Nnphgfaasm (Bld) [Mass/Vol]13.0 g/wCSfhmij29.5-15.5CWadsworth-Rittman Hospital on above: Order Comment: Specimen Type: BLOOD SPECIMENOrdering Facility: [facility] Address:[address] [place], [place] [address]Performed By: #### 80946- 8 ####[facility] LABCLIA [id number] [place], [place] [address]Rhyqgyah granulocytes (Bld) [#/Vol]10*3/uLNormal<0.10 [facility] on above:Order Comment: Specimen Type: BLOOD SPECIMENOrdering Facility: [facility] Address:[address] [place], [place] [address]Performed By: #### 12174-8 ####[facility] LABCLIA [id number] [place], [place] [address]Jblieqls granulocytes/100 WBC (Bld)0.2 %NormalACMC Healthcare [facility] on above: Order Comment: Specimen Type: BLOOD SPECIMENOrdering Facility: [facility] Address:[address] [place], [place] [address]Performed By: #### 64162- 8 ####[facility] LABIA [id number] [place], [place] [address]Rrsdsoenbmh (Bld) [#/Vol]2.50 10*3/uLNormal1.00-4.00 [facility] on above:Order Comment: Specimen Type: BLOOD SPECIMENOrdering Facility: [facility] Address:[address] [place], [place] [address]Performed By: #### 13974-9 ####[facility] LABIA [id number] [place], [place] [address]Cdgdsajmdwe/100 WBC (Bld)26.3 %NormalACMC Healthcare System on above:Order Comment: Specimen Type: BLOOD SPECIMENOrdering Facility: [facility] Address:[address] [place], [place] [address]Performed By: #### 39281-0 ####[facility] LABIA [id number] [place], [place] [address]ELQ (RBC) [Entitic mass]30.6 mqIggsjo20.0-34.0[facility] on above:Order Comment: Specimen Type: BLOOD SPECIMENOrdering Facility: [facility] Address:[address] [place], [place] [address]Performed By: #### 57543-4 ####[facility] LABCLIA [id number] [place], [place] [address]NVUD (RBC) [Mass/Vol]35.2 g/rNChukth59.5-36.0[facility] on above: Order Comment: Specimen Type: BLOOD SPECIMENOrdering Facility: [facility] Address:[address] [place], [place] [address]Performed By: #### 28712- 8 ####[facility] LABCLIA [id number] [place], [place] [address]NOA (RBC) [Entitic vol]86.8 vMWuqsdh51.0-100.0[facility] on above:Order Comment: Specimen Type: BLOOD SPECIMENOrdering Facility: [facility] Address:[address] [place], [place] [address]Performed By: #### 52386-5 ####[facility] LABCLIA [id number] [place], [place] [address]Hozhrzeeo (Bld) [#/Vol]0.44 10*3/uLNormal<0.87[facility] on above:Order Comment: Specimen Type: BLOOD SPECIMENOrdering Facility: [facility] Address:[address] [place], [place] [address]Performed By: #### 32407- 8 ####[facility] LABCLIA [id number] [place], [place] [address]Weiegqhev/100 WBC (Bld)4.6 %NormalACMC Healthcare [facility] on above:Order Comment: Specimen Type: BLOOD SPECIMENOrdering Facility: [facility] Address:[address] [place], [place] [address]Performed By: #### 02556-5 ####[facility] LABCLIA [id number] [place], [place] [address]Ythyonbgrnc (Bld) [#/Vol]6.48 10*3/uLNormal1.45-7.50[facility] on above:Order Comment: Specimen Type: BLOOD SPECIMENOrdering Facility: [facility] Address:[address] [place], [place] [address]Performed By: #### 68930-1 ####[facility] LABCLIA [id number] [place], [place] [address]Rkxvuhawwlv/100 WBC (Bld)68.1 %NormalACMC Healthcare [facility] on above:Order Comment: Specimen Type: BLOOD SPECIMENOrdering Facility: [facility] Address:[address] [place], [place] [address]Performed By: #### 78749-7 ####[facility] LABCLIA [id number] [place], [place] [address]Iuphusdch RBC (Bld) [#/Vol] 10*3/uLNormal<0.01[facility] on above:Order Comment: Specimen Type: BLOOD SPECIMENOrdering Facility: [facility] Address:[address] [place], [place] [address]Performed By: #### 31143-6 ####[facility] LABCLIA [id number] [place], [place] [address]Fzdmtwftt RBC/100 WBC (Bld) [Ratio]0.0 /100 WBCNormal [facility] on above:Order Comment: Specimen Type: BLOOD SPECIMENOrdering Facility: [facility] Address:[address] [place], [place] [address]Performed By: #### 88688-0 ####[facility] LABIA [id number] [place], [place] [address]Utgkdfkg mean volume (Bld) [Entitic vol]9.8 fLNormal9.0-12.7CWadsworth-Rittman Hospital on above:Order Comment: Specimen Type: BLOOD SPECIMENOrdering Facility: [facility] Address:[address] [place] [address] Performed By: #### 30548-2 ####[facility] LABCLIA [id number] [place], [place] [address]Gvatmdgvr (Bld) [#/Vol]327 10*3/wRVxibnz068-795NqklsztspACMC Healthcare System on above:Order Comment: Specimen Type: BLOOD SPECIMENOrdering Facility: [facility] Address:[address] [place], [place] [address]Performed By: #### 80526-7 ####[facility] LABIA [id number] [place], [place] [address]LGK (Bld) [#/Vol]4.25 10*6/uLNormal3.90-5.20[facility] on above:Order Comment: Specimen Type: BLOOD SPECIMENOrdering Facility: [facility] Address:[address] [place], [place] [address]Performed By: #### 06874-8 ####[facility] LABIA [id number] [place], [place] [address]GXP (Bld) [#/Vol]9.52 10*3/uLNormal3.70-11.00[facility] on above: Order Comment: Specimen Type: BLOOD SPECIMENOrdering Facility: [facility] Address:[address] [place], [place] [address]Performed By: #### 15155- 8 ####[facility] LABIA [id number] [place], [place] [address]IVGVSVvp 78-51-0246XFWQFVCfjwj (SP) Office ([place]) SANNA RENDON ([id number]) 1985 F Date Time Provider Department 10/28/24 2:30 PM KATHERINE NEGRETE During your visit today, we recorded the following information about you: Temperature Pulse Respiration Blood pressure 97 degrees 82/minute 16/minute 122/77 Weight Last Period 94.1 kg 10/28/24 Katherine Negrete APRN.RECEIVING MANAGER 10/29/2024 9:44 PM Signed NAME: Sanna Rendon CLINIC NO.: [id number] DATE OF SERVICE: October 28, 2024 (Penelope) [...] later in 2018. These were found in [place], [place]. I don't have access to these [...] rash shortly before presenting to [facility] in 2016 with headaches and [...] vi (more content not included)...NormalGlenbeigh Hospital Sisi 41-72-3905ULXBYuebkkgxp (NCCAP) SANNA RENDON ([id number]) 1985 F Date Time Provider Department 10/28/24 [...] recommended. 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 She denies further questions, [...] 05/28/2024 Encounter Status:Closed by RACHAEL JOHNSON on 11/05/24NormalCWadsworth-Rittman Hospitalprehensive metabolic 2000 panelon 37-82-1565Zanzjat [Mass/Vol]4.4 g/dLNormal3.9-4.9CWadsworth-Rittman Hospital on above:Order Comment: Specimen Type: BLOOD SPECIMENOrdering Facility: [facility] Address:[address] [place], [place] [address]Performed By: #### 68756-9 ####[facility] LABCLIA [id number] [place], [place] [address]UCF [Catalytic activity/Vol]55 U/OPnzenb96-014IkbvxhmhtACMC Healthcare System on above:Order Comment: Specimen Type: BLOOD SPECIMENOrdering Facility: [facility] Address:[address] [place], [place] [address]Performed By: #### 16372-4 ####[facility] LABCLIA [id number] [place], [place] [address]YTD [Catalytic activity/Vol]18 U/LNormal7-38[facility] on above:Order Comment: Specimen Type: BLOOD SPECIMENOrdering Facility: [facility] Address:[address] [place], [place] [address]Performed By: #### 90564- 8 ####[facility] LABCLIA [id number] [facility] [place], [place] [address]Ieeqe gap [Moles/Vol]12 mmol/LNormal8-15[facility] on above:Order Comment: Specimen Type: BLOOD SPECIMENOrdering Facility: [facility] Address:[address] [place], [place] [address]Performed By: #### 72387-6 ####[facility] LABCLIA [id number] [facility] [place], [place] [address]MVK [Catalytic activity/Vol]13 U/IWwxaru26-78QrdnbbtvrACMC Healthcare System on above:Order Comment: Specimen Type: BLOOD SPECIMENOrdering Facility: [facility] Address:[address] [place], [place] [address]Performed By: #### 55173-9 ####[facility] LABCLIA [id number] [place] [address] Bilirubin [Mass/Vol]0.2 mg/dLNormal0.2-1.3CWadsworth-Rittman Hospital on above:Order Comment: Specimen Type: BLOOD SPECIMENOrdering Facility: [facility] Address:[address] [place], [place] [address]Performed By: #### 66960-0 ####[facility] LABCLIA [id number] [facility] CENTERTEETEEM[place], [place] [address]Xfhmdjg [Mass/Vol]9.9 mg/dLNormal8.5-10.2CWadsworth-Rittman Hospital on above:Order Comment: Specimen Type: BLOOD SPECIMENOrdering Facility: [facility] Address:[address] [place], [place] [address]Performed By: #### 27000-2 ####[facility] LABIA [id number] [place], [place] [address]Urzcvdnr [Moles/Vol]99 mmol/OMxxemr07-078DdzznehhcACMC Healthcare System on above:Order Comment: Specimen Type: BLOOD SPECIMENOrdering Facility: [facility] Address:[address] [place], [place] [address]Performed By: #### 18443- 8 ####[facility] LABCLIA [id number] [place], [place] [address]JX9 [Moles/Vol]22 mmol/BFnelou50-25DgmlxqynkACMC Healthcare System on above:Order Comment: Specimen Type: BLOOD SPECIMENOrdering Facility: [facility] Address:[address] [place], [place] [address]Performed By: #### 02562-0 ####[facility] LABCLIA [id number] [place], [place] [address]Pnphnqemal [Mass/Vol]0.60 mg/dL Normal0.58-0.96[facility] on above:Order Comment: Specimen Type: BLOOD SPECIMENOrdering Facility: [facility] Address:[address] [place], [place] [address]Performed By: #### 59988-0 ####[facility] LABCLIA [id number] [place], [place] [address]Ubzryqrgzp and Glomerular filtration rate.predicted panel (S/P/Bld)117 mL/min/1.73m???Normal>=60[facility] on above:Order Comment: Specimen Type: BLOOD SPECIMENOrdering Facility: [facility] Address:[address] [place], [place] [address]Result Comment: Estimated Glomerular Filtration Rate (eGFR) is [...] not accurately reflect actual GFR.Performed By: #### 53613-0 ####[facility] LABCLIA [id number] [place], [place] [address]Pewgiik [Mass/Vol]101 mg/aGEzvz75-16BlzliwmmeACMC Healthcare System on above:Order Comment: Specimen Type: BLOOD SPECIMENOrdering Facility: [facility] Address:[address] [place] [address]Hcctul Comment: The [place] Diabetes Association (ADA) provides guidance for cutoff [...] Standards of Medical Care in Diabetes 2016, [place] [employer] Association. Diabetes Care. 2016.39(Suppl 1).Performed By: #### 24010-1 ####[facility] LABCLIA [id number] [place], [place] [address]Zsqpeaagm [Moles/Vol]3.5 mmol/LLow3.7-5.1CWadsworth-Rittman Hospital on above:Order Comment: Specimen Type: BLOOD SPECIMENOrdering Facility: [facility] Address:[address] [place], [place] [address]Performed By: #### 24880-7 ####[facility] LABCLIA [id number] [place], [place] [address]Tbwgpct [Mass/Vol]7.6 g/dL Normal6.3-8.0[facility] on above:Order Comment: Specimen Type: BLOOD SPECIMENOrdering Facility: [facility] Address:[address] [place] [address]Nnauhfsrq By: #### 84405-8 ####[facility] LABCLIA [id number] [place] [address] Sodium [Moles/Vol]133 mmol/DYcn843-781DiycavhivACMC Healthcare System on above:Order Comment: Specimen Type: BLOOD SPECIMENOrdering Facility: [facility] Address:[address] [place], [place] [address]Performed By: #### 49786-1 ####[facility] LABCLIA [id number] [place], [place] [address]Stgz nitrogen [Mass/Vol]7 mg/dLNormal7-21Glenbeigh HospitalComment on above:Order Comment: Specimen Type: BLOOD SPECIMENOrdering Facility: [facility] Address:[address] [place], [place] [address]Performed By: #### 14838-1 ####[facility] LABCLIA [id number] [place], [place] [address]Puzjqbhy SerPl-mCncon 51-67-5391Hfcucfhh [Mass/Vol]99.6 ng/cDApolfo89.7-205.1CRegional Medical CenterComselect specialty hospital on above:Order Comment: Specimen Type: BLOOD SPECIMENOrdering Facility: [facility] Address:[address] [place], [place] [address]Performed By: #### 2276-4, 63245-8, 9, 3016-3 ####[facility] LABCLIA [id number] [place] [address] [place] OF AMERICAIron and Iron binding capacity panelon 06-62-9416Uvxl [Mass/Vol]72 ug/hHGqayti55-075BmksusxjxGlenbeigh Hospital Comment on above:Order Comment: Specimen Type: BLOOD SPECIMENOrdering Facility: [facility] Address:[address] [place] [address] Performed By: #### 2276-4, 73828-8, 9, 3016-3 ####[facility] LABCLIA [id number] [place] [address] [place] AMERICAIron binding capacity [Mass/Vol]399 ug/mYAiga111-142AspcjbbfiGlenbeigh HospitalComselect specialty hospital on above:Order Comment: Specimen Type: BLOOD SPECIMENOrdering Facility: [facility] Address:[address] [place], [place] [address]Performed By: #### 2276-4, 07087-0, 2131-12, 6-3 ####[facility] LABCLIA [id number] [address] [facility]ALTH SYSTEMIron/TIBC [Molar ratio]18.0 % Facfpf99.0-57.0[facility] on above:Order Comment: Specimen Type: BLOOD SPECIMENOrdering Facility: [facility] Address:[address] [place] [address] [place] [id number] By: #### 2276-4, 31964-9, 2131-12, 6-3 ####[facility] LABIA [id number] [place] [id number] [facility] CENTERTSMonterey Park Hospital 10-28-2024 Thyroid Stimulating (3Rd Generation) Hormone/ Tsh1.25[facility] SerPl-aCncon 57-70-6438EGJ Qn1.250 m[IU]/LNormal 0.270-4.200[facility] on above:Order Comment: Specimen Type: BLOOD SPECIMENOrdering Facility: [facility] Address:[address] [place] [address] [place], [place] [address]Result Comment: If the patient is , TSH reference range varies by gestational period: First Trimester (weeks 9-12): 0.180-2.990 mIU/L Second Trimester: 0.110-3.980 mIU/L Third Trimester: 0.480-4.710 mIU/L Danny Varela et al. A Practical Approach for the Verifications and Determination of Site- and Trimester-Specific Reference Intervals for Thyroid Function tests in . Thyroid, 2019:29:3:412-420.Saeed E, et al. 2017 Guidelines of the [place] Thyroid Association for the Diagnosis and Management of Thyroid Disease during and the . Thyroid, 2017:27:3:315-389. Performed By: #### 2276-4, 59946-7, 9, 6-3 ####[facility] LABCLIA [id number] [address] [address] [facility]ICAL CENTERVit B12 SerPl-mCncon 50-27-4263Sfggbqtcz (Vitamin B12) [Mass/Vol]483 pg/rLLkfrxz316-3236RavqkvondWadsworth-Rittman Hospital on above: Order Comment: Specimen Type: BLOOD SPECIMENOrdering Facility: [facility] Address:[address] [place], [place] [address]Performed By: #### 2276- 4, 37688-0, 2132-9, 3016-3 ####[facility] LABCLIA [id number] [facility] [id number] [place], [place] [address] [facility] OF AMERICACNPNon 85-61-1472YNNVEreazaebw (HEMASA) SANNA RENDON ([id number]) 1985 F Date Time Provider Department 10/24/24 [...] Date Reviewed: 08/26/2024 Reviewed by: Katherine Negrete APRN.RECEIVING MANAGER - Fully Assessed Reason for Visit: Lab [...] 05/28/2024 Encounter Status:Closed by KAUR DUNHAM on 10/24/24[facility] OB TRANSVAGINALon 58-14-3746PE OB TRANSVAGINALEXAM: US OB TRANSVAGINAL HISTORY: Viability, [...] II, MD, PHD at 21-Oct-2024 08:31:21 AM [facility]-[place] TeleradiologyNormalNot AvailableComment on above:Order Comment: US OB VIABILITY PLEASE PERFORM TRANSVAGINAL ULTRASOUND IF INDICATED No LMP recorded.ALL CBC WITH AUTO DIFFon 33-89-9363ABIQRRDIL ABSOLUTE XKBF2VAKG HealthcareBasophils/100 WBC (Bld)0.2 %0.2 - 2.0 %NOMS [...] HealthcareMCHC (RBC) [Mass/Vol] 34.6 g/dL29.9 - 35.2 g/dLNOMN HealthcareMCV (RBC) [Entitic vol]86.2 fL81.0 - 99.0 fLNOMS HealthcareMONOCYTES ABSOLUTE AUTO0.6NOMS HealthcareMonocytes/100 WBC (Bld)7.2 %1.7 - 12.0 %NOMS HealthcareNEUTROPHILS ABSOLUTE AUTO5.6NOPemiscot Memorial Health Systems Neutrophils/100 WBC (Bld)62.8 %43.0 - 75.0 %NOMS HealthcarePlatelet mean volume (Bld) [Entitic vol]10.1 fL9.5 - 13.5 fLNOPemiscot Memorial Health SystemsTB EO #0NOPemiscot Memorial Health Systems TBH QFG889HKQDSaint Mary's Hospital of Blue Springs RBC4.42NOPemiscot Memorial Health SystemsTB WBC8.9NOPemiscot Memorial Health Systems CLINISYNCDrug Screen, Urineon 63-79-5609Lpneybkrlji/MethamphetamineNegative [facility] Hospitaledica Health SystemBarbituratesNegativeVermont State HospitalMedica Health System BenzodiazepinesNegativeProMedica Health SystemCocaine MetaboliteNegative [facility] Health SystemEcstasyNegativeVermont State HospitalMedica Health SystemMethadoneNegative [facility] Hospitaledica Health SystemOpiatesNegativeVermont State HospitalMedica Health SystemOxycodoneNegative [facility] Hospitaledica Health SystemPhencyclidineNegativeVermont State HospitalMedica Health SystemThc Marijuana, UrineNegativeWilson Street Hospitalca Health SystemHBV surface Ag IA Qlon 10-06-2024 Hepatitis B Surface AntigenNegativeAdena Health System SystemHIV 1+2 Ab+HIV1 p24 Ag IA Qlon 10-94-4124LEC 1&2 AB/AGNegativeAdena Health System SystemHemoglobin A1con 12-62-6686ErK7a (Bld) [Mass fraction]5.9 %4.0 - 6.0 %[facility] SystemNo Panel Informationon 80-28-8656LPME HealthcareTSHon 56-25-6392Fjpampi Stimulating (3Rd Generation) Hormone/ Tsh1.131[facility] SystemType and screenon 17-98-2909Phs/Rh(D)NegativeProUniversity Hospitals Geneva Medical CenterHCG ( test) Ql (U)on 97-61-7181Rgubjeiumzcshv and review of laboratory resultsAbnormalSaint [facility] Hospital [facility] Preg Test, UrPositiveNegativeCedar County Memorial Hospital HealthcareUrinalysis macro (dipstick) panel (U)on 98-69-8110Sdtbsarur, UANegativeNegative - 4(70) +++ mg/dL NOMS HealthcareBlood, [...] - 12 mg/dLNOMS HealthcareNOMS HealthcareUS OB TRANSVAGINALon [id number] [address] Ultrasound Report Signed Patient: SANNA RENDON MR#: [id number] : 1985 Acct:[id number] Age/Sex: 38 / F ADM Date: 09/11/24 Loc: US Attending Dr: Wilton Herrmann D.O. Ordering Physician: Wilton Herrmann D.O. Date of Service: 09/11/24 Procedure(s): US OB transvaginal Accession Number(s): [id number] cc: Wilton Herrmann D.O.; PENELOPE CASAS [place] [id number] Patient Name: SANNA RENDON MRN: [id number] date: 1985 Sex: F Assigned Patient Location: US Current Patient Location: US Accession/Order Number: [id number] Exam Date: 09/11/2024 11:34 Report Date: 09/11/2024 [...] Montano M.D. 09/11/2024 11:36 AM Dictation Location: [place] [address] Electronically authenticated by: [id number] Y Date: 09/11/2024 11:36 Dictated By: Prudence Montano M.D. Signed By: 09/11/24 1138 DD/ 1136 TD/TT: Folder Machine Adjuster:TBHRadiology, Radiologist, MD - 09/11/2024 [place] [address] Ultrasound Report Signed Patient: SANNA RENDON MR#: [id number] : 1985 Acct:[id number] Age/Sex: 38 / F ADM Date: 09/11/24 Loc: US Attending Dr: Wilton Herramnn D.O. Ordering Physician: Wilton Herrmann D.O. Date of Service: 09/11/24 Procedure(s): US OB transvaginal Accession Number(s): [id number] cc: Wilton Herrmann D.O.; PENELOPE CASAS [address] [address] Patient Name: SANNA RENDON MRN: [id number] date: 1985 Sex: F Assigned Patient Location: [place] Current Patient Location: [place] Accession/Order Number: [id number] Exam Date: 09/11/2024 11:34 Report Date: 09/11/2024 [...] Montano M.D. 09/11/2024 11:36 AM Dictation Location: [place] [address] Electronically authenticated by: [id number] Y Date: 09/11/2024 11:36 Dictated By: Prudence Montano M.D. Signed By: 09/11/24 1138 DD/ 1136 TD/TT: Folder Machine Adjuster: SHILOH HealthcareRadiology Study observation (narrative)[facility] OB TRANSVAGINALOrdered By: Radiologist Radiology on 32-64-5236QVDB Healthcare Work Phone: bhcg Quanton 11-02-0118JPR.beta subunit Fa24205 m[IU]/mLHigh1-3[facility] HospitalComment on above:Result Comment: 'F NON < 1 - 3' ' 0.2 - 1 WEEK = 5 TO 50' ' 1 - 2 WEEKS = 50 - 500' ' 2 - 3 WEEKS = 100 - 5000' ' 3 - 4 WEEKS = 500 - 29653' ' 4 - 5 WEEKS = 1000 - 11111' ' 5 - 6 WEEKS = 85511 - 249716' ' 6 - 8 WEEKS = 48300 - 235964' ' 8 - 12 WEEKS = 73969 - 578023'Performed By: #### [id number] #### [facility] [address] [place], [place] [address]Tytyfbwtlu Visit Summaryon 23-70-0602Pyphfcytiy Visit Summary Ambulatory Visit Summary SANNA RENDON :1985 Visit Date:09/07/2024 Ambulatory Visit Instructions Your Diagnosis Viral URI with cough Cough Your Care Team Attending Physician - Romulo Chiu PA-C Primary Care Physician - Penelope CASAS DO, FAAFP This Is Your Medications List Contact prescribing physician if questions or concerns enoxaparin (Lovenox 40 mg/0.4 mL Injection) ergocalciferol (Vitamin D) fluticasone nasal (Flonase 0.05 mg/inh Medina) levothyroxine (levothyroxine 25 mcg (0.025 mg) Tab) [...] EDT With: Penelope CASAS DO, FAAFP Where: [facility] [address], [place] [address]- Medications What How Much When Instructions Unchanged enoxaparin (Lovenox 40 mg/ 0.4 mL Injection) 40 Milligram Subcutaneous Every 24 hours Contact prescribing physician if questions or concerns Unchanged ergocalciferol (Vitamin D) 2,000 International unit By Mouth Every week Contact prescribing physician if questions or concerns Unchanged fluticasone nasal (Flonase 0.05 mg/ inh Medina) 2 Sprays Nasal Inhalation Every day each [...] you for choosing us for your care. [facility] Medicine Office/Clinic Noteon 79-89-8821Jchwdt Medicine Office/Clinic NoteMer[facility] Medicine Office/Clinic Note Chief Complaint cough, sinus [...] created with voice recognition software. Occasional wrong-word or???ubtiz-l-vjoi??? substitutions may have occurred due to the [...] days ago on Sunday. Has been using qobt-kjk-vjiongf cough drops and Flonase for her allergies. [...] duration. Discussed antibiotics un (more content not included)...[facility] HospitalComment on above:Result Comment: Electronically Signed By: Aram QUINTEROS, Romulo Lynn\.br\Date and Time Signed: 09/07/2509:46 EDTCNPNon 08-35-5958GIAZWfajruoor (HEMASA) SANNA RENDON ([id number]) 1985 F Date Time Provider Department 09/02/24 [...] Date Reviewed: 08/26/2024 Reviewed by: Katherine Negrete APRN.RECEIVING MANAGER - Fully Assessed Reason for Visit: Patient [...] 05/28/2024 Encounter Status:Closed by RACHAEL JOHNSON on 09/03/24[facility] Quanton 80-54-6242DHA.beta subunit Qn558 m[IU]/mLHigh1-3[facility] HospitalComment on above:Result Comment: 'F NON < 1 - 3' ' 0.2 - 1 WEEK = 5 TO 50' ' 1 - 2 WEEKS = 50 - 500' ' 2 - 3 WEEKS = 100 - 5000' ' 3 - 4 WEEKS = 500 - 14380' ' 4 - 5 WEEKS = 1000 - 39025' ' 5 - 6 WEEKS = 39237 - 955531' ' 6 - 8 WEEKS = 81930 - 698031' ' 8 - 12 WEEKS = 87124 - 941783'Performed By: #### [id number] #### [facility] [address] [place], [place] [address]RxJI Quanton 49-06-2697KPM.beta subunit Qn188 m[IU]/mLHigh1-3 [facility] HospitalComment on above:Result Comment: 'F NON < 1 - 3' ' 0.2 - 1 WEEK = 5 TO 50' ' 1 - 2 WEEKS = 50 - 500' ' 2 - 3 WEEKS = 100 - 5000' ' 3 - 4 WEEKS = 500 - 22077' ' 4 - 5 WEEKS = 1000 - 69296' ' 5 - 6 WEEKS = 35705 - 098497' ' 6 - 8 WEEKS = 26221 - 840257' ' 8 - 12 WEEKS = 86515 - 091864'Performed By: #### [id number] #### [facility] [address] [place], [place] [address]NBJWzb 33-47-5570GEVUSdxjepjdh (HEMASA) SANNA RENDON ([id number]) 1985 F Date Time Provider Department 08/26/24 [...] Date Reviewed: 08/26/2024 Reviewed by: Katherine Negrete APRN.RECEIVING MANAGER - Fully Assessed Reason for Visit: Lab Orders [1688] Primary Visit Diagnosis:Antiphospholipid antibody positive [R76.0] Other Visit Diagnoses: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] Malaise and fatigue [R53.81, R53.83] Vitamin D deficiency [E55.9] Order(s):COMPLETE BLOOD COUNT AND DIFFERENTIAL [SQCBCDIF] Order #: [id number] FUTURE COMPREHENSIVE METABOLIC PANEL [SQCMP] Order #: [id number] FUTURE THYROID STIMULATING HORMONE [SQTSH] Order #: [id number] FUTURE IRON AND TIBC [SQIRON] Order #: [id number] FUTURE FERRITIN [SQFERR] Order #: [id number] FUTURE VITAMIN D 25 HYDROXY [SQVITD] Order #: [id number] FUTURE VITAMIN B12 [SQB12] Order #: [id number] FUTURE Prescriptions as of 08/26/2024 - enoxaparin [...] 05/28/2024 Encounter Status:Closed by KATHERINE NEGRETE on 08/26/24[facility] Quanton 34-61-5433NAO.beta subunit Qn83 m[IU]/mLHigh1-3FCincinnati Children's Hospital Medical CenterComment on above:Result Comment: 'F NON < 1 - 3' ' 0.2 - 1 WEEK = 5 TO 50' ' 1 - 2 WEEKS = 50 - 500' ' 2 - 3 WEEKS = 100 - 5000' ' 3 - 4 WEEKS = 500 - 14228' ' 4 - 5 WEEKS = 1000 - 73490' ' 5 - 6 WEEKS = 24236 - 107718' ' 6 - 8 WEEKS = 35012 - 679065' ' 8 - 12 WEEKS = 04450 - 471354'Performed By: #### [id number] #### [facility] [address] [place], [place] [address]VlCX Quanton 99-33-9184TLZ.beta subunit Qn22 m[IU]/mLHigh1-3 [facility] HospitalComment on above:Result Comment: 'F NON < 1 - 3' ' 0.2 - 1 WEEK = 5 TO 50' ' 1 - 2 WEEKS = 50 - 500' ' 2 - 3 WEEKS = 100 - 5000' ' 3 - 4 WEEKS = 500 - 80844' ' 4 - 5 WEEKS = 1000 - 76927' ' 5 - 6 WEEKS = 14714 - 766223' ' 6 - 8 WEEKS = 37311 - 176601' ' 8 - 12 WEEKS = 69336 - 270360'Performed By: #### [id number] #### [facility] [address] [place], [place] [address]TBNIGODODVvufrsn By: SYSTEM SYSTEM on 45-66-7603GII.beta subunit Qn22 m[IU]/mLHigh1 - 3 mIU/mLRemisol ChemComment on above:Result Comment: 'F NON < 1 - 3' ' 0.2 - 1 WEEK = 5 TO 50' ' 1 - 2 WEEKS = 50 - 500' ' 2 - 3 WEEKS = 100 - 5000' ' 3 - 4 WEEKS = 500 - 64627' ' 4 - 5 WEEKS = 1000 - 86361' ' 5 - 6 WEEKS = 98341 - 060552' ' 6 - 8 WEEKS = 90322 - 196185' ' 8 - 12 WEEKS = 60213 - 730261'TSH Qn1.86 m[IU]/LNormal0.34 - 5.60 mcIU/mLRemisol ChemTSHon 54-34-7130COR Qn1.86 m[IU]/LNormal0.34-5.60[facility] HospitalComment on above:Performed By: #### [id number] #### [facility] [address] [place], [place] [address]QKA ( test) Ql (U)on 42-31-6532Xooxsyfewlvqed and review of laboratory resultsNoCoatesville Veterans Affairs Medical CenterPreg Test, UrNegativeNegative Critical access hospital.Interpretation:on 04-68-1451MGN Ab IA QlComment Invalid Interpretation [facility] HospitalComment on above:Result Comment: Not infected with HCV unless early or acute infection is suspected (which may be delayed in an immunocompromised individual), or other evidence exists to indicate HCV infection. Performed at: [address] [id number] PhD Jd Garciaformed By: #### [id number] #### [facility] [address] [place], [place] [address]AHI Antibody RFX to Quant PCRon 33-89-3227WGQ Ab IA Ql Non-ReactiveInvalid Interpretation CodeNon ReactiveSheltering Arms Hospital Comment on above:Result Comment: Performed at: [address] [id number] PhD Jd Garciaformed By: #### [id number] #### [facility] [address] [place], [place] [address]IGJ Screen 4th Generation wRfxon 24-86-7812GCS 1+2 Ab+HIV1 p24 Ag IA QlNon-ReactiveInvalid Interpretation CodeNon ReactiveSheltering Arms HospitalComment on above:Result Comment: HIV-1/HIV-2 antibodies and HIV-1 p24 antigen were NOT detected. There is no laboratory evidence of HIV infection. HIV Negative Performed at: [address] [id number] PhD Jd Garciaformed By: #### [id number] #### [facility] [address] [place], [place] [address]Gsm Be Agon 18-18-0186IAG e Ag IA QlNegativeInvalid Interpretation CodeNegativeSheltering Arms HospitalComment on above:Result Comment: Performed at: [address] [id number] PhD Jd Garciaformed By: #### [id number] #### [facility] [address] [place], [place] [address]Fjq Bs Agon 76-47-9564IXC surface Ag IA QlNegativeInvalid Interpretation CodeNegativeSheltering Arms HospitalComment on above:Result Comment: Performed at: [address] [id number] PhD Jd Garciaformed By: #### [id number] #### [facility] [address] [place], [place] [address]LBNAYMDJUBfzaywa By: SYSTEM SYSTEM on 23-45-9157Irszgkl [Mass/Vol]5.0 g/dLNormal3.3 - 5.0 gm/dLRemisol ChemAlbumin/Globulin [Mass ratio] 1.6 {ratio}Normal1.1 - 2.2Remisol ChemALP [Catalytic activity/Vol]49 [iU]/d Xsojtv49 - 98 Int._Unit/LRemisol ChemALT No additional P-5'-P [Catalytic activity/Vol]18 [iU]/dNormal6 - 46 Int._Unit/LRemisol ChemAnion gap [Moles/Vol] 13 mmol/LNormal6 - 16 mEq/LRemisol ChemAST [Catalytic activity/Vol]15 [iU]/d Normal5 - 43 Int._Unit/LRemisol ChemBilirubin [Mass/Vol]0.4 mg/dLNormal0.0 - 1.1 mg/dLRemisol ChemCalcium [Mass/Vol]10.0 mg/dLNormal8.9 - 11.1 mg/dLRemisol Chem Chloride [Moles/Vol]100 mmol/YDsl640 - 111 mmol/LRemisol ChemCO2 [Moles/Vol]25 mmol/ONlbfgc09 - 31 mmol/LRemisol ChemCreatinine [Mass/Vol]0.7 mg/dLNormal0.5 - 1.3 mg/dLRemisol LknsdLNO761 mL/min/1.73 j0Kuzqbg>=59mL/min/1.73 d6Zmpquzl Chem Globulin (S) [Mass/Vol]3.1 g/dLNormal1.4 - 4.0 gm/dLRemisol ChemGlucose [Mass/Vol]82 mg/dWWqkvdc29 - 199 mg/dLRemisol ChemPotassium [Moles/Vol]3.8 mmol/LNormal3.5 - 5.3 mmol/LRemisol ChemProtein [Mass/Vol]8.1 g/dLHigh6.0 - 7.8 gm/dLRemisol ChemSodium [Moles/Vol]134 mmol/ZLnc970 - 145 mmol/LRemisol ChemUrea nitrogen [Mass/Vol]7 mg/dLNormal5 - 21 mg/dLRemisol ChemUrea nitrogen/Creatinine [Mass ratio]10 mg/zyWumvdx72 - 20Remisol ChemCMPon 99-33-1411Odnmifd [Mass/Vol]5.0 g/dLNormal3.3-5.0[facility] Comment on above:Performed By: #### [id number] #### [facility] [address] [place], [place] [address]Lgwevyg/Globulin (S) [Mass conc ratio]1.4Uhuokh3.1-2.2FCincinnati Children's Hospital Medical CenterComment on above:Performed By: #### [id number] #### [facility] [address] [place] [address]QNB [Catalytic activity/Vol]49 Int._Unit/VTgmpdm76-55DeyihcSheltering Arms HospitalComment on above:Performed By: #### [id number] #### [facility] [address] [place], [place] [address]KOJ No additional P-5'-P [Catalytic activity/Vol]18 Int._Unit/L Normal6-46[facility] HospitalComment on above:Performed By: #### [id number] #### [facility] [address] [place] [address]Leltu gap [Moles/Vol]13 mmol/LNormal6-16[facility] HospitalComment on above:Performed By: #### [id number] #### [facility] [address] [place] [address] 46001DDY [Catalytic activity/Vol]15 Int._Unit/LNormal5-43S[facility] HospitalComment on above:Performed By: #### [id number] #### [facility] [address] [place] [address]Sjdzbaboc [Mass/Vol]0.4 mg/dLNormal0.0-1.1FCincinnati Children's Hospital Medical CenterComment on above:Performed By: #### [id number] #### [facility] [address] [place] [address] 107[address]Hytoobx [Mass/Vol]10.0 mg/dLNormal8.9-11.1FCincinnati Children's Hospital Medical CenterComment on above:Performed By: #### [id number] #### [facility] [address] [place] [address] 201[address]Qzjggmqw [Moles/Vol]100 mmol/QHrh332-733BaeqmnSheltering Arms HospitalComment on above:Performed By: #### [id number] #### [facility] [address] [place] [address] 30804ZC5 [Moles/Vol]25 mmol/BQzvuzo87-03ZiujalSheltering Arms Hospital Comment on above:Performed By: #### [id number] #### [facility] [address] [place], [place] [address]Mkenholpij [Mass/Vol]0.7 mg/dLNormal0.5-1.3FCincinnati Children's Hospital Medical CenterComment on above:Performed By: #### [id number] #### [facility] [address] [place], [place] [address]Ewdphuwe (S) [Mass/Vol]3.1 g/dLNormal1.4-4.0S[facility] HospitalComment on above:Performed By: #### [id number] #### [facility] [address] [place], [place] [address]Ogcdedt [Mass/Vol]82 mg/hUZuaugs43-341PncgmnSheltering Arms HospitalComment on above:Performed By: #### [id number] #### [facility] [address] [place], [place] [address]Fowowgiwd [Moles/Vol]3.8 mmol/LNormal3.5-5.3FCincinnati Children's Hospital Medical CenterComment on above:Performed By: #### [id number] #### [facility] [address] [place], [place] [address]Xcgeahq [Mass/Vol]8.1 g/dLHigh6.0-7.8S[facility] HospitalComment on above:Performed By: #### [id number] #### [facility] [address] [place], [place] [address]Rqedpz [Moles/Vol]134 mmol/XXxm504-623MtbfexSheltering Arms HospitalComment on above:Performed By: #### [id number] #### [facility] [address] [place], [place] [address]Orxb nitrogen [Mass/Vol]7 mg/dLNormal5-21S[facility] HospitalComment on above:Performed By: #### [id number] #### [facility] [address] [place], [place] [address]Ldeh nitrogen/Creatinine [Mass ratio]10 No LdslfMphefe18-19 [facility] HospitalComment on above:Performed By: #### [id number] #### [facility] [address] [place], [place] [address]eYVFnx 30-98-0542zWDG591 mL/min/1.73 r9Cemkbn>=59Fishamadou Medstar Harbor HospitalComment on above:Performed By: #### [id number] #### [facility] [address] [place], [place] [address]Hjusit Medicine Office/Clinic Noteon 61-22-3528Fmntju Medicine Office/Clinic NoteFami Medicine Office/Clinic Note HPI [...] RESENDEZ FAAFP, Penelope Tony, FAM, PED [address], [place] [address]- Additional Instructions: Patient Education Bradycardia, [...] exam Historical Abdominal pain (more content not included)...[facility] Comment on above:Result Comment: Electronically Signed By: Inez Banegas\.br\Date and Time Signed: 07/08/24 08:54 EDTAmbulatory Visit Summaryon 79-72-3764Llpqsvpscf Visit SummaryAmbulatory Visit Summary SANNA RENDON :1985 [...] mg Tab) fluticasone nasal (Flonase 0.05 mg/inh Medina) levothyroxine (levothyroxine 25 mcg (0.025 mg) Tab) [...] EDT With: Penelope CASAS DO, FAAFP Where: [facility] [address] [place] [address]- You Need to Schedule the Following Appointments Follow Up with Penelope CASAS DO, FAAFP, FAM, PED When: Where: [address] [place] [address]- Medications What How Much When Why Instructions [...] Unchanged fluticasone nasal (Flonase 0.05 mg/ inh Medina) 2 Sprays Nasal Inhalation Every day each [...] you for choosing us for your care. [facility] HospitalBhG Quanton 40-07-0355RZI.beta subunit Qn1 m[IU]/mLNormal1-3[facility] HospitalComment on above:Result Comment: 'F NON < 1 - 3' ' 0.2 - 1 WEEK = 5 TO 50' ' 1 - 2 WEEKS = 50 - 500' ' 2 - 3 WEEKS = 100 - 5000' ' 3 - 4 WEEKS = 500 - 08004' ' 4 - 5 WEEKS = 1000 - 53315' ' 5 - 6 WEEKS = 84160 - 924585' ' 6 - 8 WEEKS = 01247 - 938798' ' 8 - 12 WEEKS = 38886 - 035330'Performed By: #### [id number] #### [facility] [address] [place], [place] [address]PSDHV 2 Mutationson 50-99-8808WAGBH InterpretationSee Note [facility] HospitalComment on above:Result Comment: Indication for testing: Determine genetic contribution to hyperhomocysteinemia. 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 The [employer] Practice Guidelines indicate [...] a contributing factor to hyperhomocysteinemia. Variants Tested: c.665C>T(p.Pkf240Tkx) and c.1286A>C(p.Dra876Exo). (legacy names C677T and W7989O, respectively). Clinical Sensitivity: Undefined; hyperhomocysteinemia is caused [...] developed and its performance characteristics determined by [employer]. It has not been cleared or approved by the [place] Food and Drug Administration. This test was performed in a CLIA certified laboratory and is intended for clinical purposes. Counseling and informed consent are recommended for genetic testing. Consent forms are available online. Performed By: [employer] [address] [place] [address] Talent Management Manager: Yayo Moncada MD, PhD CLIA Number: [id number] Mutation: [id number]ngmont United HospitalMTHFR Mutation: U774PWozgrphiXvwyfdEjzfkLongmont United Hospital MTHFR PCR SpecimenWhole BloodNormEating Recovery Center Behavioral HealthAnti-nuclear Ab (NASEEM) Reflexon 40-59-5218Mook-Nuclear Ab (NASEEM), IgG by ELISANot detectedNormal None DetAdventHealth ParkerComment on above:Result Comment: If suspicion of connective tissue disease is strong and NASEEM EIA is negative, consider testing for NASEEM by IFA ([id number]). No antibodies to Anti-Nuclear Antibodies (NASEEM) detected. The Extractable Nuclear Antigen Antibodies (HORN PLAYER, Christianson, SSA 52, SSA 60, Scleroderma, Brianna-1 [...] dsDNA, histones, SS-A (Ro), SS-B (La), Christianson, Christianson/HORN PLAYER, Scl-70, Brianna-1, centromeric proteins, other antigens extracted from the HEp-2 cell nucleus. NASEEM ALEX assays have been reported to have lower sensitivities than NASEEM IFA for systemic autoimmune rheumatic diseases (SARD). Negative results do not necessarily rule out SARD. Performed By: [employer] [address] [place] [address] Talent Management Manager: Yayo Moncada MD, PhD CLIA Number: [id number]-0 (Histidyl-tRNA Synthetase) Ab, IgGon 27-29-5190Dc-1 (Histidyl-tRNA Synthetase) Ab, IgG0 AU/mLNormal0-40[facility] Comment on above:Result Comment: INTERPRETIVE INFORMATION: Brianna-1 Antibody, IgG 29 AU/mL or less.........Negative 30-40 AU/mL..............Equivocal 41 AU/mL or greater......Positive Presence of Brianna-1 (antihistidyl transfer RNA [t-RNA] synthetase) antibody is associated with polymyositis and may also be seen in patients with dermatomyositis. Brianna-1 antibody is associated with pulmonary involvement (interstitial lung disease), Raynaud phenomenon, arthritis, and rocket engine component mechanic's hands (implicated in antisynthetase syndrome). Performed By: [employer] [address] [place], [place] [id number] Talent Management Manager: Yayo Moncada MD, PhD CLIA Number: [id number] and SSB Abs, IgGon 27-09-6897HZV 52 (Ro) (KELLEN) Ab, IgG1 AU/mLNormal0-40[facility] HospitalComment on above:Result Comment: INTERPRETIVE INFORMATION: SSA-52 [...] interstitial lung disease.SSB (La) (KELLEN) Ab, IgG0 AU/mLNormal0-40[facility] Comment on above:Result Comment: INTERPRETIVE INFORMATION: [...] (PSS) also have this antibody. Performed By: [employer] [address] [place] [id number] Talent Management Manager: Yayo Moncada MD, PhD CLIA Number: [id number] Antibodies, IgG/IgMon 96-37-6992Agmoaipfhfx Ab IgG95 GPLCritically high<=14[facility] HospitalComment on above: Result Comment: INTERPRETIVE INFORMATION: [...] other criteria phospholipid antibody tests. Performed by [employer], [address] [place] [address] www.[employer], Zhang Bledsoe MD, Lab. Director IA Number: [id number] Ab IgM<10Normal<=12[facility] HospitalComment on above:Result Comment: INTERPRETIVE INFORMATION: Anti- [...] other criteria phospholipid antibody tests. Performed by [employer], [address] [place] [address] www.[employer], Zhang Bledsoe MD, Lab. Director CLIA Number: [id number] (Smooth Muscle) Antibody, IgAon 60-81-6455C-Actin Ab, IgA1.8 UnitsNormal0.0-24.9[facility] HospitalComment on above: Result Comment: INTERPRETIVE INFORMATION: F-Actin (Smooth Muscle)Antibody, IgA 20.0 Units or less.....Negative 20.1 - 24.9 Units......Equivocal 25.0 Units or greater..Positive The presence of IgA antibodies against F-Actin in patients having positive serologic markers for celiac disease, such as antiendomysial, anti-transglutaminase, and/or anti-gliadin peptide IgA, indicates the presence of intestinal villus atrophy. Positive results should be confirmed with biopsy. Performed By: [employer] [address] [place] [address] Talent Management Manager: Yayo Moncada MD, PhD CLIA Number: [id number] Ab, IgG by ELISAon 36-38-2751eaVQG Ab, IgG by ALEX 4 IUNormal0-24[facility] HospitalComment on above:Result Comment: INTERPRETIVE INFORMATION: Double-Stranded DNA (dsDNA) Ab IgG ALEX 24 IU or less........Negative 25-30 IU.............Borderline Positive 30-60 IU.............Low Positive 60-200 IU............Positive 201 IU or greater....Strong Positive Positivity for anti-double stranded DNA (anti-dsDNA) IgG antibody is a diagnostic criterion of systemic lupus erythematosus (SLE). Specimens are initially screened by enzyme-linked immunosorbent assay (ALEX). If ordered as reflex ([id number]), positive ALEX results (>24 IU) will be [...] recommendations for testing may be found at [email or web address]. Performed by [employer], [address] [place] [address],[place] [address] www.[employer], Zhang Bledsoe MD, Lab. Director CLIA Number: [id number]-Seepnfey Proteinon 87-30-0396PTO [Mass/Vol]mg/LNormal 0.0-5.0[facility] HospitalComment on above:Performed By: #### CRP #### [facility] [address] [place] [address] Jcxwotfntwldm Rateon 48-72-2109Nijnazwgtvear Rate18 mmNormal0-20 [facility] HospitalComment on above:Result Comment: ESR Units mm/Hr Performed By: #### ESR #### [facility] [address] [place] [address] Tictrt Medicine Office/Clinic Noteon 70-80-3196Pibqwh Medicine Office/Clinic NoteFasolomon carter [facility] Medicine Office/Clinic Note Chief Complaint C/O: [...] bedtime), # 90 tab(s), Refills(s) 4, Pharmacy: [facility] 1985, 168, cm, 06/30/24 8:36:00 EST, Height/Length Dosing, 97.2, kg, 06/30/24 8:36:00 EST, Weight Dosing Total time spent preparing the chart, conducting of the encounter with the patient and family and time spent documenting, reviewing, and ordering tests was 25 minutes. Follow-up With When Contact Information Penelope CASAS DO, FAAFP, CHRIS, PED In 2 months [address], [place] [address] ([address] (more content not included)...[facility] Comment on above:Result Comment: Electronically Signed By: Penelope CASAS DO, FAAFP\.br\Date and Time Signed: 06/30/24 09:24 ESTRECURRENT VAGINITIS (HTRX)on 68-69-9105QVONCLMRP BDKGLEV4QEQB HealthcareATOPOBIUM VAGINAENot detectedNOMS HealthcareBVAB 2,3 (BACTERIAL VAGINOSIS ASSOCIATED BACTERIA 2, 3); MOBILUNCUS [id number] HealthcareBVAB 2,3 (BACTERIAL VAGINOSIS ASSOCIATED BACTERIA 2, 3); MOBILUNCUS SPPNot detectedNOMS HealthcareCANDIDA ALBICANS, PARAPSILOSIS, [id number] HealthcareCANDIDA ALBICANS, PARAPSILOSIS, TROPICALISNot detected NOMS HealthcareCANDIDA [id number] HealthcareCANDIDA GLABRATANot detectedNOMS HealthcareCANDIDA [id number] HealthcareCANDIDA KRUSEINot detectedNOMS HealthcareCHLAMYDIA [id number] HealthcareCHLAMYDIA TRACHOMATISNot detected NOMS HealthcareGARDNERELLA [id number] HealthcareGARDNERELLA VAGINALISNot detectedNOMS HealthcareMEGASPHAERA (TYPES 1, 2)0NOMS HealthcareMEGASPHAERA (TYPES 1, 2)Not detectedNOMS HealthcareMYCOPLASMA [id number] Healthcare MYCOPLASMA GENITALIUMNot detectedNOMS HealthcareNEISSERIA AIRMQEIWCIB0RWOY HealthcareNEISSERIA GONORRHOEAENot detectedNOMS HealthcareTRICHOMONAS VAGINALIS0 NOMS HealthcareTRICHOMONAS VAGINALISNot detectedNOMS HealthcareNOMS Healthcare Urinalysis macro (dipstick) panel (U)on 43-15-7540Fhogtdtjg, UANegativeNegative - 4(70) +++ mg/dLNOMS HealthcareBlood, UANegativeNegative [...] - 12 mg/dLNOMS HealthcareNOMS HealthcareAmbulatory Visit Summaryon 85-34-9122Jkpqswlogr Visit SummaryAmbulatory Visit Summary SANNA RENDON :1985 [...] (Vitamin D) fluticasone nasal (Flonase 0.05 mg/inh [place]) levothyroxine (levothyroxine 25 mcg (0.025 mg) Tab) [...] EDT With: Penelope CASAS DO, FAAFP Where: [facility] [address] [place] [address] [place] [address]- Medications What How Much When Why Instructions New azithromycin (Zithromax 250 mg Tab) 1 Packets By Mouth As Directed Sinusitis Duration: 5 Days Refills: 1 as directed on package labeling Pickup at [facility] 1985 New fluconazole (Diflucan 150 mg Tab) 1 Tablets By Mouth Every 7 days Yeast infection Refills: [address] [facility] 1985 Unchanged enoxaparin (Lovenox 40 mg/ 0.4 mL Injection) 40 Milligram Subcutaneous Every 24 hours Contact prescribing physician if questions or concerns Unchanged ergocalciferol (Vitamin D) 2,000 International unit By Mouth Every week Contact prescribing physician if questions or concerns Unchanged fluticasone nasal (Flonase 0.05 mg/ inh [place]ina) 2 Sprays Nasal Inhalation Every day each [...] physician if questions or concerns Pharmacy Information [facility] 1985: [address] [place] [id number] [phone] Allergies Milk Products (Illness) ciprofloxacin (Numbness and [...] you for choosing us for your care. [facility] Medicine Office/Clinic Noteon [id number] Medicine Office/[facility] NoteMer[facility] Note Chief Complaint Sinus [...] day(s), # 6 tab(s), Refills(s) 1, Pharmacy: [facility] 1985, 168, cm, 06/09/24 14:03:00 EST, Height/Length Dosing, 98.4, kg, 06/19/24 16:19:00 EST, Weight Dosing Yeast infection (B37.9: Candidiasis, unspecified) Ordered: fluconazole, 150 mg = 1 tab(s), Oral, q7day, # 4 tab(s), Refills(s) 1, Pharmacy: [facility] 1985, 168, cm, 06/09/24 14:03:00 [...] Oral, q7day, 1 refills Flonase 0.05 mg/inh [place], 2 spray(s), Nasal, Daily, 11 refills levothyroxine [...] Given Patient Refuses influe (more content not included)...NormalSheltering Arms HospitalComment on above:Result Comment: Electronically Signed By: MANDI BRYANT\.br\Date and Time Signed: 06/19/24 16:37 ESTCBC w/ Auto Diffon 06-12-2024 Basophils/100 WBC (Bld)0.3 %Normal0.0-2.0Sheltering Arms HospitalComment on above:Performed By: #### [id number] #### [facility] [address] [place], [place] [address]Nwsmdeudl/Leukocytes Auto (Bld) [Pure # fraction]0.0 E9/LNormal 0.0-0.2FCincinnati Children's Hospital Medical CenterComment on above:Performed By: #### [id number] #### [facility] [address] [place], [place] [address]Cdtockqvrlv (Bld) [#/Vol]0.0 E9/LNormal0.0-0.5FCincinnati Children's Hospital Medical CenterComment on above:Performed By: #### [id number] #### [facility] [address] [place], [place] [address]Jzwttfbmffo/100 WBC (Bld)0.3 %Normal0.0-8.0Sheltering Arms HospitalComment on above:Performed By: #### [id number] #### [facility] [address] [place], [place] [address]Hixcuefzawi distribution width (RBC) [Ratio]14.0 %Normal 10.9-14.2FCincinnati Children's Hospital Medical CenterComment on above:Performed By: #### [id number] #### [facility] [address] [place] [address]Gakkbigfay (Bld) [Volume fraction]40.9 %Yojolf56.0-46.0Sheltering Arms HospitalComment on above:Performed By: #### [id number] #### [facility] [address] [place] [address]Wuitsifrlz (Bld) [Mass/Vol]13.9 g/tLEtkeoa11.0-16.0S[facility] Arms HospitalComment on above:Performed By: #### [id number] #### [facility] [address] [place] [address]Cfqflzriejp (Bld) [#/Vol]2.8 E9/LNormal1.0-4.0Sheltering Arms HospitalComment on above:Performed By: #### 6695972 #### [facility] [address] [place] [address]Rooprarrnno/100 WBC (Bld)24.6 %Forbik05.0-50.0Sheltering Arms HospitalComment on above:Performed By: #### [id number] #### [facility] [address] [place] [address]GBH (RBC) [Entitic mass]30.7 rxQtvltl14.0-34.0Sheltering Arms HospitalComment on above:Performed By: #### [id number] #### [facility] [address] [place] [address]67[address]KIWL (RBC) [Mass/Vol]33.9 g/pZNummss95.4-36.0S[facility] Arms HospitalComment on above:Performed By: #### 1355942 #### [facility] [address] [place] [address]YCP (RBC) [Entitic vol]90.6 jDEvfefs56.0-100.0Sheltering Arms HospitalComment on above:Performed By: #### [id number] #### [facility] [address] [place] [address] 345[address]Mexbeajkb (Bld) [#/Vol]0.6 E9/LNormal0.2-1.0Sheltering Arms HospitalComment on above:Performed By: #### [id number] #### [facility] [address] [place] [address]Iswmqhvlpzw (Bld) [#/Vol]8.0 E9/LHigh2.0-7.5FCincinnati Children's Hospital Medical CenterComment on above:Performed By: #### [id number] #### [facility] [address] [place] [address] 11323Cdeibgcstrt/100 WBC (Bld)69.6 %Ysxlhz31.0-75.0Sheltering Arms HospitalComment on above:Performed By: #### [id number] #### [facility] [address] [place] [address] 25646Vylavyxu252.0 E9/VBrnnkw917.0-500.0[facility] Comment on above:Performed By: #### [id number] #### [facility] [address] [place] [address] 45865Mmxtsyxg mean volume (Bld) [Entitic vol]8.2 fLNormal6.4-10.8 [facility] HospitalComment on above:Performed By: #### [id number] #### [facility] [address] [place] [address] 984[address]YKS (Bld) [#/Vol]4.5 E12/LNormal4.3-5.9Sheltering Arms HospitalComment on above:Performed By: #### 3787581 #### [facility] [address] [place], [place] [address]BNX corrected for nucl RBC Auto (Bld) [#/Vol]11.5 E9/LHigh 4.0-11.0Sheltering Arms HospitalComment on above:Performed By: #### [id number] #### [facility] [address] [place], [place] [address]CCTHTUCHRIIdcgdik By: SYSTEM SYSTEM on 16-13-6844Ofdwdlhaw/100 WBC (Bld)0.3 %Normal0.0 - 2.0 %Remisol HemeBasophils/Leukocytes Auto (Bld) [Pure # fraction]0.0 E9/LNormal0.0 - 0.2 E9/LRemisol HemeEosinophils (Bld) [#/Vol]0.0 E9/LNormal0.0 - 0.5 E9/LRemisol HemeEosinophils/100 WBC (Bld)0.3 %Normal0.0 - 8.0 %Remisol HemeErythrocyte distribution width (RBC) [Ratio]14.0 %Vtssws47.9 - 14.2 %Remisol HemeHematocrit (Bld) [Volume fraction]40.9 %Rfzdwi93.0 - 46.0 % Remisol HemeHemoglobin (Bld) [Mass/Vol]13.9 g/tJJdybjj99.0 - 16.0 gm/dLRemisol HemeLymphocytes (Bld) [#/Vol]2.8 E9/LNormal1.0 - 4.0 E9/LRemisol Heme Lymphocytes/100 WBC (Bld)24.6 %Oimbcd75.0 - 50.0 %Remisol HemeMCH (RBC) [Entitic mass]30.7 ahDlkdph15.0 - 34.0 pgRemisol HemeMCHC (RBC) [Mass/Vol]33.9 g/dL Vlggqf02.4 - 36.0 gm/dLRemisol HemeMCV (RBC) [Entitic vol]90.6 zYBizafo55.0 - 100.0 fLRemisol HemeMonocytes (Bld) [#/Vol]0.6 E9/LNormal0.2 - 1.0 E9/LRemisol HemeMonocytes/100 WBC (Bld)5.2 %Normal4.0 - 14.0 %Remisol HemeNeutrophils (Bld) [#/Vol]8.0 E9/LHigh2.0 - 7.5 E9/LRemisol HemeNeutrophils/100 WBC (Bld)69.6 % Aolmdj11.0 - 75.0 %Remisol PcvoBcoszmhl125.0 E9/WHtycdp082.0 - 500.0 E9/LRemisol HemePlatelet mean volume (Bld) [Entitic vol]8.2 fLNormal6.4 - 10.8 fLRemisol HemeRBC (Bld) [#/Vol]4.5 E12/LNormal4.3 - 5.9 E12/LRemisol HemeWBC corrected for nucl RBC Auto (Bld) [#/Vol]11.5 E9/LHigh4.0 - 11.0 E9/LRemisol HemeAmbulatory Visit Summaryon [id number] Visit SummaryAmbulatory Visit Summary SANNA RENDON :1985 Visit Date:06/09/2024 Ambulatory Visit Instructions Your Diagnosis Antiphospholipid antibody with hypercoagulable state H/O: CVA Gestational diabetes BMI 35.0-35.9,adult Morbid obesity Your Care Team Attending Physician - Penelope CASAS DO, FAAFP Primary Care Physician - Penelope CASAS DO, FAAFP This Is Your Medications List fluticasone nasal (Flonase 0.05 mg/inh [place]) Contact prescribing physician if questions or concerns [...] EDT With: Penelope CASAS DO, FAAFP Where: [facility] [address], [facility] [place] [address]- Medications What How Much When Instructions New fluticasone nasal (Flonase 0.05 mg/ inh [place]) 2 Sprays Nasal Inhalation Every day Refills: 11 each nostril Pickup at [facility]/pharmacy #[id number] Unchanged enoxaparin (Lovenox 40 mg/ 0.4 [...] physician if questions or concerns Pharmacy Information [facility]/pharmacy #[id number]: [address] [place], [place] [id number] [phone] Allergies Milk Products (Illness) ciprofloxacin (Numbness and [...] choosing us for your care. NormalFisher Medstar Harbor HospitalBhCG Quanton 12-01-9104YYY.beta subunit Qn2 m[IU]/mLNormal1-3Fisher [facility] Harbor HospitalComment on above:Result Comment: 'F NON < 1 - 3' ' 0.2 - 1 WEEK = 5 TO 50' ' 1 - 2 WEEKS = 50 - 500' ' 2 - 3 WEEKS = 100 - 5000' ' 3 - 4 WEEKS = 500 - 87403' ' 4 - 5 WEEKS = 1000 - 05774' ' 5 - 6 WEEKS = 33294 - 588358' ' 6 - 8 WEEKS = 16521 - 993122' ' 8 - 12 WEEKS = 62428 - 723195'Performed By: #### [id number] #### [facility] [address] [place], [place] [address]FSGLMTHJMCbhvgfh By: SYSTEM SYSTEM on 19-96-1296CWM Qn1.97 m[IU]/LNormal0.34 - 5.60 mcIU/mLRemisol ChemFamily Medicine Office/Clinic Noteon 21-12-1984Wgxczp Medicine Office/Clinic NoteFamily Medicine Office/Clinic Note Chief [...] from inside ear, not outside Moved from [place] Review of Systems PHQ Score Initial Depression [...] antibody with hypercoagulable state (D68.61: Antiphospholipid syndrome) [facility] Department of hematology/oncology following and treating with Lovenox, please see their consultation 05/28/2024. Treats with Lovenox 40 mg subcu every 24 hours 2. H/O: CVA (Z86.79: Personal history of other diseases of the circulatory system) Please see #1. 3. 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 Metformin XR 500 mg tabs [...] PED In 6 months [address] [place] [address]- [phone] (more content not included)...[facility] North HospitalComment on above:Result Comment: Electronically Signed By: Penelope CASAS DO, FAAFP\.br\Date and Time Signed: 06/09/24 14:24 ESTTSHon 72-88-7179JDS Qn1.97 m[IU]/LNormal0.34-5.60Sheltering Arms HospitalComment on above:Performed By: #### [id number] #### [facility] [address] [place], [place] [address]IhVW Quanton 25-46-9112ZHY.beta subunit Qn6 m[IU]/mLHigh1-3 Shel[facility] Arms HospitalComment on above:Result Comment: 'F NON < 1 - 3' ' 0.2 - 1 WEEK = 5 TO 50' ' 1 - 2 WEEKS = 50 - 500' ' 2 - 3 WEEKS = 100 - 5000' ' 3 - 4 WEEKS = 500 - 44118' ' 4 - 5 WEEKS = 1000 - 27417' ' 5 - 6 WEEKS = 04821 - 324564' ' 6 - 8 WEEKS = 02706 - 346813' ' 8 - 12 WEEKS = 51624 - 242828'Performed By: #### [id number] #### [facility] [address] [facility] [place], [place] [address]([place])D3 [facility] 320979-jeilsijpxnhhxn D3 [Mass/Vol] 27.8 ng/mLLow31.0-80.0Glenbeigh HospitalComment on above:Order Comment: Specimen Type: BLOOD SPECIMENOrdering Facility: [facility] Address:[address] [place], [place] [address]Zqnslw Comment: Classification of 25 [place] Vitamin D status: Deficiency/Insufficiency: < or = 30 ng/ml. Sufficiency/Optimal Levels: 31-80 ng/mL Toxicity: > 100 ng/mL. Test performed by chemiluminescent immunoassay.Performed By: #### 1989-3 ####[facility] LABCLIA [id number] [facility]ALK [id number] Auto Differential panel (Bld)on 60-64-1231Kmeztonyc (Bld) [#/Vol]0.03 10*3/uLNormal<0.11CWadsworth-Rittman Hospital on above:Order Comment: Specimen Type: BLOOD SPECIMENOrdering Facility: [facility] Address:[address] [place], [place] [address]Performed By: #### 61317-5 ####[facility] LABCLIA [id number] [place], [place] [address]Tgzugbkpx/100 WBC (Bld)0.4 % NormalACMC Healthcare System on above:Order Comment: Specimen Type: BLOOD SPECIMENOrdering Facility: [facility] Address:[address] [place], [place] [address]Performed By: #### 04013-8 ####[facility] LABCLIA [id number] [place] [address] Differential cell count method Nom (Bld)AutoNormalCRegional Medical Center Comment on above:Order Comment: Specimen Type: BLOOD SPECIMENOrdering Facility: [facility] Address:[address] [place] [address] Performed By: #### 06078-3 ####[facility] LABIA [id number] [place], [place] [address]Ctlmslbryrn (Bld) [#/Vol]0.08 10*3/uLNormal<0.46[facility] on above:Order Comment: Specimen Type: BLOOD SPECIMENOrdering Facility: [facility] Address:[address] [place], [place] [address]Performed By: #### 70271-1 ####[facility] LABCLIA [id number] [place], [place] [address]Xzcwovyabze/100 WBC (Bld)0.9 %NormalACMC Healthcare System on above:Order Comment: Specimen Type: BLOOD SPECIMENOrdering Facility: [facility] Address:[address] [place], [place] [address]Performed By: #### 18673-6 ####[facility] LABIA [id number] [place], [place] [address]Ixzdcjiuuxw distribution width (RBC) [Ratio]13.8 %Qykiye07.5-15.0[facility] on above: Order Comment: Specimen Type: BLOOD SPECIMENOrdering Facility: [facility] Address:[address] [place], [place] [address]Performed By: #### 06018- 8 ####[facility] LABIA [id number] [place], [place] [address]Nrdtpgaqym (Bld) [Volume fraction]34.0 %Low36.0-46.0 [facility] on above:Order Comment: Specimen Type: BLOOD SPECIMENOrdering Facility: [facility] Address:[address] [place], [place] [address]Performed By: #### 50342-6 ####[facility] LABIA [id number] [place], [place] [address]Reoxjfunda (Bld) [Mass/Vol]11.5 g/nEUtephc14.5-15.5CWadsworth-Rittman Hospital on above: Order Comment: Specimen Type: BLOOD SPECIMENOrdering Facility: [facility] Address:[address] [place], [place] [address]Performed By: #### 15804- 8 ####[facility] LABIA [id number] [place], [place] [address]Sriczfwu granulocytes (Bld) [#/Vol]0.03 10*3/uLNormal <0.10[facility] on above:Order Comment: Specimen Type: BLOOD SPECIMENOrdering Facility: [facility] Address:[address] [place], [place] [address]Performed By: #### 88858-2 ####[facility] LABCLIA [id number] [place], [place] [address]Iimjfrbs granulocytes/100 WBC (Bld)0.4 %NormalACMC Healthcare System on above: Order Comment: Specimen Type: BLOOD SPECIMENOrdering Facility: [facility] Address:[address] [place], [place] [address]Performed By: #### 43204- 8 ####[facility] LABCLIA [id number] [place], [place] [address]Zfczgpgqptd (Bld) [#/Vol]2.86 10*3/uLNormal1.00-4.00 [facility] on above:Order Comment: Specimen Type: BLOOD SPECIMENOrdering Facility: [facility] Address:[address] [place], [place] [address]Performed By: #### 69574-7 ####[facility] LABCLIA [id number] [place], [place] [address]Msxjjhaegib/100 WBC (Bld)33.4 %NormalACMC Healthcare System on above:Order Comment: Specimen Type: BLOOD SPECIMENOrdering Facility: [facility] Address:[address] [place], [place] [address]Performed By: #### 94503-3 ####[facility] LABCLIA [id number] [place], [place] [address]ZXX (RBC) [Entitic mass]30.8 dwKklgvt74.0-34.0[facility] on above:Order Comment: Specimen Type: BLOOD SPECIMENOrdering Facility: [facility] Address:[address] [place], [place] [address]Performed By: #### 73395-9 ####[facility] LABCLIA [id number] [place], [place] [address]MDES (RBC) [Mass/Vol]33.8 g/jCSmdtca81.5-36.0[facility] on above: Order Comment: Specimen Type: BLOOD SPECIMENOrdering Facility: [facility] Address:[address] [place], [place] [address]Performed By: #### 57507- 8 ####[facility] LABCLIA [id number] [place], [place] [address]WWG (RBC) [Entitic vol]91.2 qAEwwaoa51.0-100.0[facility] on above:Order Comment: Specimen Type: BLOOD SPECIMENOrdering Facility: [facility] Address:[address] [place], [place] [address]Performed By: #### 80482-7 ####[facility] LABIA [id number] [place], [place] [address]Hzqfywfqd (Bld) [#/Vol]0.66 10*3/uLNormal<0.87[facility] on above:Order Comment: Specimen Type: BLOOD SPECIMENOrdering Facility: [facility] Address:[address] [place], [place] [address]Performed By: #### 76495- 8 ####[facility] LABIA [id number] [place], [place] [address]Xahxaurrf/100 WBC (Bld)7.7 %NormalACMC Healthcare System on above:Order Comment: Specimen Type: BLOOD SPECIMENOrdering Facility: [facility] Address:[address] [place], [place] [address]Performed By: #### 75526-9 ####[facility] LABIA [id number] [place], [place] [address]Dzjfkvuxguc (Bld) [#/Vol]4.90 10*3/uLNormal1.45-7.50[facility] on above:Order Comment: Specimen Type: BLOOD SPECIMENOrdering Facility: [facility] Address:[address] [place], [place] [address]Performed By: #### 77649-3 ####[facility] LABCLIA [id number] [place], [place] [address]Iaxdycvwqfu/100 WBC (Bld)57.2 %NormalACMC Healthcare System on above:Order Comment: Specimen Type: BLOOD SPECIMENOrdering Facility: [facility] Address:[address] [place], [place] [address]Performed By: #### 02295-4 ####[facility] LABCLIA [id number] [place], [place] [address]Lsnooobcb RBC (Bld) [#/Vol] 10*3/uLNormal<0.01[facility] on above:Order Comment: Specimen Type: BLOOD SPECIMENOrdering Facility: [facility] Address:[address] [place], [place] [address]Performed By: #### 38386-2 ####[facility] LABCLIA [id number] [place], [place] [address]Lwbsxdnsd RBC/100 WBC (Bld) [Ratio]0.0 /100 WBCNormal [facility] on above:Order Comment: Specimen Type: BLOOD SPECIMENOrdering Facility: [facility] Address:[address] [place], [place] [address]Performed By: #### 98572-7 ####[facility] LABCLIA [id number] [place], [place] [address]Dxiiwprc mean volume (Bld) [Entitic vol]9.6 fLNormal9.0-12.7CWadsworth-Rittman Hospital on above:Order Comment: Specimen Type: BLOOD SPECIMENOrdering Facility: [facility] Address:[address] [place] [address] Performed By: #### 14781-1 ####[facility] LABCLIA [id number] [place], [place] [address]Lxtjymacg (Bld) [#/Vol]345 10*3/bCEpnpdi392-446CcoiemyyzACMC Healthcare System on above:Order Comment: Specimen Type: BLOOD SPECIMENOrdering Facility: [facility] Address:[address] [place], [place] [address]Performed By: #### 48819-1 ####[facility] LABIA [id number] [place], [place] [address]AVX (Bld) [#/Vol]3.73 10*6/uLLow3.90-5.20[facility] on above:Order Comment: Specimen Type: BLOOD SPECIMENOrdering Facility: [facility] Address:[address] [place], [place] [address]Performed By: #### 13423-3 ####[facility] LABIA [id number] [place], [place] [address]QGB (Bld) [#/Vol]8.56 10*3/uL Normal3.70-11.00[facility] on above:Order Comment: Specimen Type: BLOOD SPECIMENOrdering Facility: [facility] Address:[address] [place], [place] [address]Performed By: #### 69384-5 ####[facility] LABIA [id number] [place], [place] [address]TCRLQOyl 58-61-9184QNKRXEQpkjr (SP) Office (HEMASA) SANNA RENDON ([id number]) 1985 F Date Time Provider Department 05/28/24 1:00 PM ABHYANKAR, KRISTOFER HEMASA During your visit today, we recorded the following information about you: Temperature Pulse Respiration Blood pressure 97.6 degrees 72/minute 16/minute 123/83 Weight Height 98.5 kg 1.677 m Kristofer Calix MD 05/29/2024 9:13 AM Signed NAME: Sanna Rendon CLINIC NO.: [id number] DATE OF SERVICE: May 28, 2024 (Levon) [...] later in 2018. These were found in [place], [place]. I don't have access to these [...] rash shortly before presenting to [facility] in 2016 with headaches and [...] soon. When she had a stroke in [place], she had symptoms up to a month [...] included)...NormalGlenbeigh HospitalCNPNon 05-28-2024 CNPNTelephone (NCCAP) SANNA RENDON ([id number]) 1985 F Date Time Provider Department 05/28/24 [...] 05/28/2024 Encounter Status:Closed by TAYLOR ESCUDERO on 05/28/24NormalClevelFormerly [facility], [facility] North HospitalComprehensive metabolic 2000 panelon 78-12-0353Aufaigd [Mass/Vol]4.4 g/dLNormal3.9-4.9ClevelFormerly [facility], [facility] North HospitalComment on above:Order Comment: Specimen Type: BLOOD SPECIMENOrdering Facility: [facility] Address:[address] [place] [address] [place] [id number] By: #### 89917-8 ####[facility] LABCLIA [id number] [place] [address]FYT [Catalytic activity/Vol]59 U/BZvpwdj16-394LcurkxcoqACMC Healthcare System on above:Order Comment: Specimen Type: BLOOD SPECIMENOrdering Facility: [facility] Address:[address] [place], [place] [address]Performed By: #### 08187-7 ####[facility] LABCLIA [id number] [place], [place] [address]YOC [Catalytic activity/Vol]12 U/LNormal7-38[facility] on above:Order Comment: Specimen Type: BLOOD SPECIMENOrdering Facility: [facility] Address:[address] [place], [place] [address]Performed By: #### 84645- 8 ####[facility] LABCLIA [id number] FABI DUMONTVERDE VALLEY MEDICAL CENTERTEETEEMI [place], [place] [address]Kaxym gap [Moles/Vol]10 mmol/LNormal8-15[facility] on above:Order Comment: Specimen Type: BLOOD SPECIMENOrdering Facility: [facility] Address:[address] [place], [place] [address]Performed By: #### 40841-8 ####[facility] LABCLIA [id number] [place], [place] [address]IXP [Catalytic activity/Vol]11 U/OLuc59-74AzteedoawACMC Healthcare System on above:Order Comment: Specimen Type: BLOOD SPECIMENOrdering Facility: [facility] Address:[address] [place], [place] [address]Performed By: #### 17690-0 ####[facility] LABCLIA [id number] [place] [address] Bilirubin [Mass/Vol]0.2 mg/dLNormal0.2-1.3CWadsworth-Rittman Hospital on above:Order Comment: Specimen Type: BLOOD SPECIMENOrdering Facility: [facility] Address:[address] [place], [place] [address]Performed By: #### 99564-7 ####[facility] LABCLIA [id number] [place], [place] [address]Jsmvoqt [Mass/Vol]9.7 mg/dLNormal8.5-10.2CWadsworth-Rittman Hospital on above:Order Comment: Specimen Type: BLOOD SPECIMENOrdering Facility: [facility] Address:[address] [place], [place] [address]Performed By: #### 62621-4 ####[facility] LABCLIA [id number] [place], [place] [address]Ymxjadtu [Moles/Vol]99 mmol/JLahlki43-556QfjshbxujACMC Healthcare System on above:Order Comment: Specimen Type: BLOOD SPECIMENOrdering Facility: [facility] Address:[address] [place], [place] [address]Performed By: #### [id number]- 8 ####[facility] LABCLIA [id number] [place], [place] [address]IQ4 [Moles/Vol]25 mmol/VJazrro14-54CvbisewecACMC Healthcare System on above:Order Comment: Specimen Type: BLOOD SPECIMENOrdering Facility: [facility] Address:[address] [place], [place] [address]Performed By: #### 98319-3 ####[facility] LABCLIA [id number] [place], [place] [address]Jycluonhgh [Mass/Vol]0.71 mg/dL Normal0.58-0.96[facility] on above:Order Comment: Specimen Type: BLOOD SPECIMENOrdering Facility: [facility] Address:[address] [place], [place] [address]Performed By: #### 89010-1 ####[facility] LABCLIA [id number] [place], [place] 72180Nxxacauxcm and Glomerular filtration rate.predicted panel (S/P/Bld)112 mL/min/1.73m???Normal>=60[facility] on above:Order Comment: Specimen Type: BLOOD SPECIMENOrdering Facility: [facility] Address:[address] [place] [address]Xarlur Comment: Estimated Glomerular Filtration Rate (eGFR) is [...] not accurately reflect actual GFR.Performed By: #### 73553-7 ####[facility] LABCLIA [id number] [place], [place] [address]Xkztqoa [Mass/Vol]79 mg/oNOcokrd35-49EfhrivyjoACMC Healthcare System on above:Order Comment: Specimen Type: BLOOD SPECIMENOrdering Facility: [facility] Address:[address] [place] [address]49[address]Yrzrxn Comment: The [place] Diabetes Association (ADA) provides guidance for cutoff [...] Standards of Medical Care in Diabetes 2016, [place] Diabetes Association. Diabetes Care. 2016.39(Suppl 1).Performed By: #### 74508-7 ####[facility] LABCLIA [id number] [place], [place] [address]Eidfbwbzv [Moles/Vol]4.0 mmol/LNormal3.7-5.1CWadsworth-Rittman [facility] on above:Order Comment: Specimen Type: BLOOD SPECIMENOrdering Facility: [facility] Address:[address] [place], [place] [address]Performed By: #### 54247-7 ####[facility] LABCLIA [id number] [place], [place] [address]Ocnezcx [Mass/Vol]7.1 g/dLNormal6.3-8.0[facility] on above:Order Comment: Specimen Type: BLOOD SPECIMENOrdering Facility: [facility] Address:[address] [place], [place] [address]Performed By: #### 29957- 8 ####[facility] LABCLIA [id number] [place], [place] [address]Oftncp [Moles/Vol]134 mmol/ATml935-882KgjqkeduyACMC Healthcare [facility] on above:Order Comment: Specimen Type: BLOOD SPECIMENOrdering Facility: [facility] Address:[address] [place], [place] [address]Performed By: #### 29042-4 ####[facility] LABCLIA [id number] [place], [place] [address]Nmjz nitrogen [Mass/Vol]8 mg/dL Normal7-21[facility] on above:Order Comment: Specimen Type: BLOOD SPECIMENOrdering Facility: [facility] Address:[address] [place], [place] [address]Performed By: #### 90071-2 ####[facility] LABCLIA [id number] [place] [address] Ferritin SerPl-mCncon 43-01-1033Revbmkkn [Mass/Vol]73.8 ng/cPRmhryv79.7-205.1 [facility] on above:Order Comment: Specimen Type: BLOOD SPECIMENOrdering Facility: [facility] Address:[address] [place], [place] [address]Performed By: #### 05153-5, 2276-4, 3016-3 ####[facility] LABCLIA [id number] [place] [address] [place] AMERICAFolate SerPl-mCncon 88-42-3246Zrrjqe [Mass/Vol] ng/mLNormal>4.7CWadsworth-Ritt[facility] on above:Order Comment: Specimen Type: BLOOD SPECIMENOrdering Facility: [facility] Address:[address] [place], [place] [address]Result Comment: A result of > 20 ng/mL is not necessarily indicative of a pathologic or treatable condition: it reflects a limitation of the test methodology. Assay reference range: 4.8 to 24.2 ng/mL. Suitable for detection of folate deficiency. Reference: Folate III (Folate III) [package insert V 1.0 French]. [facility], [place], [place]: February 2015.Performed By: #### 2132-9, 2284-8 ####[facility] LABCLIA [id number] [place] [address] [place] AMERICAIron and Iron binding capacity panelon 05-28-2024 Iron [Mass/Vol]68 ug/qCGfbheo75-179RdnbtfmajACMC Healthcare [facility] on above: Order Comment: Specimen Type: BLOOD SPECIMENOrdering Facility: [facility] Address:[address] [place], [place] [address]Performed By: #### 76182- 8, 2276-4, 3016-3 ####[facility] LABCLIA [id number] [place] [address] [place] AMERICAIron binding capacity [Mass/Vol]367 ug/nJAeippd553-418VufyksgkwACMC [facility] on above: Order Comment: Specimen Type: BLOOD SPECIMENOrdering Facility: [facility] Address:[address] [place], [place] [address]Performed By: #### 53605- 8, 6-4, 3016-3 ####[facility] LABCLIA [id number] [place] [address] [place] AMERICAIron/TIBC [Molar ratio]18.5 %Xsenkj71.0-57.0[facility] on above:Order Comment: Specimen Type: BLOOD SPECIMENOrdering Facility: [facility] Address:[address] [place], [place] [address]Performed By: #### 29673- 8, 6-4, 3016-3 ####[facility] LABCLIA [id number] [place] [address] [place] [facility] CENTERTS SerPl-aCncon 93-84-2807AGU Qn2.940 m[IU]/LNormal0.270-4.200[facility] on above:Order Comment: Specimen Type: BLOOD SPECIMENOrdering Facility: [facility] Address:[address] [place], [place] [address]Result Comment: If the patient is , TSH reference range varies by gestational period: First Trimester (weeks 9-12): 0.180-2.990 mIU/L Second Trimester: 0.110-3.980 mIU/L Third Trimester: 0.480-4.710 mIU/L Danny Varela et al. A Practical Approach for the Verifications and Determination of Site- and Trimester-Specific Reference Intervals for Thyroid Function tests in . Thyroid, 2019:29:3:412-420.Saeed E, et al. 2017 Guidelines of the [place] Thyroid Association for the Diagnosis and Management of Thyroid Disease during and the . Thyroid, 2017:27:3:315-389. Performed By: #### 23727-8, 4, 3015-3 ####[facility] LABCLIA [id number] [place] [id number] [place] OF [facility] CENTERVit B12 SerPl-mCncon 28-86-7136Auxvepnvk (Vitamin B12) [Mass/Vol]487 pg/dDXdqeuv915-2763HnbgzvtwrWadsworth-Rittman Hospital on above:Order Comment: Specimen Type: BLOOD SPECIMENOrdering Facility: [facility] Address:[address] [place], [place] [address]Performed By: #### 2132-9, 2284-8 ####[facility] LABCLIA [id number] [facility] [id number] [place] [address] [place] [facility]ACH[facility] MEDICAL CENTERBhCG Quanton 87-78-5461SUY.beta subunit Qn101 m[IU]/mLHigh1-3Fisher Medstar Harbor HospitalComment on above:Result Comment: 'F NON < 1 - 3' ' 0.2 - 1 WEEK = 5 TO 50' ' 1 - 2 WEEKS = 50 - 500' ' 2 - 3 WEEKS = 100 - 5000' ' 3 - 4 WEEKS = 500 - 08504' ' 4 - 5 WEEKS = 1000 - 06875' ' 5 - 6 WEEKS = 69819 - 791108' ' 6 - 8 WEEKS = 69421 - 363914' ' 8 - 12 WEEKS = 01270 - 856856'Performed By: #### [id number] #### [facility] [address] [place], [place] [address]EEXWDP V LEIDEN MUTATIONon 97-29-4423OZB FACTOR V LEIDEN MUTATIONComment.[facility] HealthcareComment on above:Result: c.1601G>A (p.Ocq910Eho) - Not Detected This result is not associated with an increased risk for venous thromboembolism. See Additional Clinical Information and Comments. Additional Clinical Information: Venous thromboembolism is a multifactorial disease influenced by genetic, environmental, and circumstantial risk factors. The c.1601G>A (p. Oqh947Nlc) variant in the F5 gene, commonly referred [...] c.*97G>A variant and Factor V Leiden (PMID: 41007593). Additional risk factors include but are not [...] health care providers to discuss results at [phone] (7158). Test Details: Variant Analyzed: c.1601G>A (p. Kbw291Sgj), referred to as Factor V Leiden Methods/Limitations: [...] developed and its performance characteristics determined by [employer]. It has not been cleared or approved by the Food and Drug Administration. References: Jomar Tian, Loren BLANDON, Thiaog R, Solo WW, Jose JH; ACMG Professional Practice and Guidelines Committee. Addendum: [place] [employer] consensus statement on factor V Leiden mutation testing. Nisha Med. 2020Jul 02. doi: 10.1038/p88898-866-54341-g. PMID: 97025511. Naina POWERS. Factor V Leiden Thrombophilia. 1998September 10 (Updated 2017May 03). In: Emeterio MP, Radha HH, Clayton RA, et al., editors. Cassie(R) (Internet). [place]): [facility], [place]; 4724-4931. Available from: https://www.ncbi.nlm.nih.gov/books/ECM1238/ Hudson Tian, Loren BLANDON, Trent X, Margarito B, Jo-Ann EB, Lena P, Rhiannon CS; ACMG Laboratory Toll Mechanic Committee. Venous thromboembolism laboratory testing (factor V Leiden and factor II c.*97G>A), 2018 update: a technical standard of the [place] [employer] and Genomics (ACMG). Nisha Med. 2018 Mar;20(12):7708-2184. doi: 10.1038/y86227-560-1909-i. Epub 2017Feb 01. PMID: 38225160. [facility] REVIEWED BYComment.NOMS HealthcareComment on above:Technical Component performed at [facility] Professional Component performed by: [facility] ValleyTanner Research Rosa Isela Lee, Ph.D., [facility] Director, Molecular Genetics [address] [facility] Performed at: - [facility] [address], [place], [place] [address] Store Administrative Assistant: Kolton Storm [facility], Phone: [phone] [facility] [id number] (HEMASA) SANNA RENDON ([id number]) 1985 F Date Time Provider Department 05/14/24 [...] for deficiency. She is aware if her code number stamper or PCP request any additional testing, we [...] Date Reviewed: 04/28/2024 Reviewed by: Katherine Negrete APRN.RECEIVING MANAGER - Fully Assessed Reason for Visit: Patient [...] 08/01/2022 Encounter Status:Closed by RACHAEL JOHNSON on 05/14/24[facility] MISCELLANEOUS TESTon 55-01-0299GJDVDDVYNIHBS TESTCOMMENT.NOMS HealthcareComment on above:Test Ordered: [id number] , ID Ab Cytomegalovirus (CMV) Ab, IgG [...] 0.9 - 1.1 Positive >1.1 Performed at: [address] [id number] Store Administrative Assistant: Dusty Miles PhD, Phone: [phone] Performed at: [address] [id number] Store Administrative Assistant: China Ching MD, Phone: [phone] , Infectious Disease Antibody Profile CLINISYNCNOMS HealthcareNo Panel Informationon 43-33-9266MJAONTZWSSSYY HealthcarePROTEIN C-FUNCTIONALon 61-57-2996EFTFWWG C-VWSZTEGOFI704 %73 - 180 % NOMS HealthcareComment on above:Performed at: [address] [id number] Store Administrative Assistant: China Ching MD, Phone: [phone] PROTEIN S-ANTIGENon 17-59-2905ZEZXOXB S, DRZX973 %61 - 136 %[facility] PROTEIN S, TOTAL96 %60 - 150 %NOMS HealthcareComment on above:This test was developed and its performance characteristics determined by [facility]. It has not been cleared or approved by the Food and Drug Administration. [facility] ANTITHROMBIN ACTIVITYon 51-02-3721Pyiqqkozjhbsas and review of laboratory resultsAbnormalFulton State Hospital ANTITHROMBIN BPTFXEGB836 %Snbraclg07 - 135 % NOMS HealthcareComment on above:An elevated antithrombin activity is of no known clinical significance. Direct Xa inhibitor anticoagulants such as rivaroxaban, apixaban and edoxaban will lead to spuriously elevated antithrombin activity levels possibly masking a deficiency. Performed at: [address] [id number] Store Administrative Assistant: China Ching MD, Phone: [phone] ALL IMMUNOGLOBULIN Koffi 32-41-2131VZM IMMUNOGLOBULIN G, QN913 mg/dL586 - 1602 mg/dLNOMN HealthcareComment on above:Performed at: [address] [id number] Store Administrative Assistant: Dusty Miles PhD, Phone: [phone] ALL IMMUNOGLOBULIN Mon 83-97-2522CAR IMMUNOGLOBULIN M, Q177 mg/dL26 - 217 mg/dL NOM HealthcareComment on above:Performed at: [address] [id number] Store Administrative Assistant: Dusty Miles PhD, Phone: [phone] [facility] HOMOCYSTEINEon 28-63-4122HNYECDEB(E)INE5.8 umol/L0.0 - 14.5 umol/LNOMS HealthcareNo Panel Informationon 31-03-6431DASMFDDGMAVNL HealthcareALL CBC WITH AUTO DIFFon 24-20-6013BFDYIWECD ABSOLUTE XHHM7PZGA HealthcareBasophils/100 WBC (Bld)0.2 %0.2 - 2.0 %NOMS HealthcareEosinophils/100 WBC (Bld)0.7 %Low0.9 - 7.0 % NOMS HealthcareErythrocyte distribution width (RBC) [Ratio]13 %11.0 - 15.0 %NOMS HealthcareHematocrit (Bld) [Volume fraction]35.6 %Low36.0 - 48.0 %[facility] SpringsHemoglobin (Bld) [Mass/Vol]12.3 g/dL12.0 - 16.0 g/dLSaint Mary's Hospital of [facility] Springs IMMATURE GRANULOCYTES ABS AUTO0.04HighNOPemiscot Memorial Health SystemsImmature granulocytes/100 WBC (Bld)0.4 %0.0 - 0.5 %[facility] SpringsInterpretation and review of laboratory resultsAbnormalNOMN HealthcareLYMPHOCYTES ABSOLUTE AUTO2.5NOMS [facility] Lymphocytes/100 WBC (Bld)26.1 %20.5 - 60.0 %St. Luke's HospitalH (RBC) [Entitic mass]31 pg26.7 - 34.0 pgNOSaint John's Saint Francis HospitalHC (RBC) [Mass/Vol]34.6 g/dL29.9 - 35.2 g/dLSaint Mary's Hospital of Blue SpringsMCV (RBC) [Entitic vol]89.7 fL81.0 - 99.0 fLSaint Mary's Hospital of [facility] Springs MONOCYTES ABSOLUTE AUTO0.6NOMS HealthcareMonocytes/100 WBC (Bld)6 %1.7 - 12.0 % [facility] SpringsNEUTROPHILS ABSOLUTE AUTO6.3NOMS HealthcareNeutrophils/100 WBC (Bld)66.6 %43.0 - 75.0 %[facility] Blue SpringsPlatelet mean volume (Bld) [Entitic vol] 9.9 fL9.5 - 13.5 fLNOMS [facility] HospitalTBH EO #0.1NOMS [facility] HospitalTB YZO332NJJT [facility] HospitalTB RBC3.97LowNOMS [facility] HospitalTB WBC9.4NOMS [facility] HospitalCLINISYNCNSaint Luke's North Hospital–Barry RoadCC APTTon 65-05-9883pWCH Coag (Bld) [Time]28.5 [facility] Institute [facility] St. LouisLon 05-10-2024L Specimen: [id number] Received: 05/12/24-120 Status: BALDOMERO Andrade Num: [id number] Spec Type: Surgical Subm Dr: Wilton Herrmann Tissues: A Placenta - Other than 3rd Trimester (14 WK PLACENTA) Procedures: HE/3, Gross/Micro L4 Age/ Patient Sex Location Account Attending Physician Sanna Rendon 38/F LABELL [id number] Wilton Herrmann SPEC NUM: [id number] RECD: 05/12/24-1209 STATUS: BALDOMERO ANDRADE NUM: [id number] AMARILYS: 05/10/24- SUBM DR: Wilton Herrmann ENTERED: 05/12/24-1215 [facility] DR: Yao Pickett SPEC TYPE: Surgical DEPT: [facility] ENTERED BY: [id number] RECV BY: [id number] ORDERED: HE/3, Gross/Micro L4 ORDERED: HE/3, Gross/Micro [...] BS25-17 Received: 05/12/24 Status: BALDOMERO Andrade Num: [id number] Spec Type: Surgical Subm Dr: Wilton Herrmann Tissues: A Placenta - Other than 3rd Trimester (14 WK PLACENTA) Procedures: DEION/Ramone, Gross/Micro L4 Patient: Lizandro,Katie [id number] (Continued) Specimen: [id number] Received: 05/12/24 (Continued) Gross Description (Continued) Signed (signature on file) Vivi Hill MD 05/13/24 1605 Specimen: [id number] Received: 05/12/24 Status: JUSTINEBrittany Andrade Num: [id number] Spec Type: Surgical Subm Dr: Wilton Herrmann Tissues: A Placenta - Other than 3rd Trimester (14 WK PLACENTA) Procedures: /3, Gross/Micro L4 Patient: Sanna Rendon [id number] (Continued) Specimen: [id number] Received: 05/12/24 (Continued) Gross [...] and uniform. Cassettes: A1 Rolled membrane A2-A3 Carrier Loader sections of placenta (3, ss, BS25-17 A) JosselynG . CPT Codes 07054 Specimen: [id number] Received: 05/12/24 Status: BALDOMERO Andarde Num: [id number] Spec Type: Surgical Subm Dr: Wilton Herrmann Tissues: A Placenta - Other than 3rd Trimester (14 WK PLACENTA) Procedures: DEION/Ramone, Gross/Micro L4 Patient: LizandroSanna [id number] (Continued) Signed (signature on file) Vivi Hill MD 05/13/[address] [place] [address] Physician GroupMHPT FIBRINOGENon 05-10-2024 VXLNQDUGDX906 mg/dL200 - 400 mg/dLNOPemiscot Memorial Health SystemsNo Panel Informationon 00-80-0904KKNBDPLRIPWES HealthcareSRMCOH PROTHROMBIN TIME INR W/O COUMon 31-36-3464WB Coag (PPP) [Time]10.3 sNSaint Louis University [facility] INR0.97[facility] Comment on above:DESIRED INR: 2.0-3.0 CONDITIONS NOT LISTED BELOW 2.5-3.5 FOR PROSTHETIC HEART VALVE REPLACEMENT 2.5-3.5 RECURRENT THROMBOSIS US PELVISon 73-25-4262[place]vl[place], [place] [address] Ultrasound Report Signed Patient: SANNA RENDON MR#: [id number] : 1985 Acct:[id number] Age/Sex: 38 / F ADM Date: Loc: [facility] 258-[address]: Wilton Herrmann D.O. Ordering Physician: Wilton Herrmann D.O. Date of Service: 05/10/24 Procedure(s): US pelvis Accession Number(s): [id number] cc: Wilton Herrmann D.O.; PENELOPE CASAS [place] [phone] Patient Name: SANNA RENDON MRN: [id number] date: 1985 Sex: F Assigned Patient Location: [facility] Current Patient Location: [facility] Accession/Order Number: [id number] Exam Date: 05/10/2024 14:36 Report Date: 05/10/2024 [...] M.D. Signed By: 05/10/241603 DD/ 01 TD/TT: Folder Machine Adjuster:ELVERadiology, Radiologist, - 05/10/2024 [place] [address] Ultrasound Report Signed Patient: SANNA RENDON MR#: [id number] : 1985 Acct:[id number] Age/Sex: 38 / F ADM Date: Loc: [facility] 258-[address]: Wilton Herrmann D.O. Ordering Physician: Wilton Herrmann D.O. Date of Service: 05/10/24 Procedure(s): US pelvis Accession Number(s): [id number] cc: Wilton Herrmann D.O.; PENELOPE CASAS [place] [address] Patient Name: SANNA RENDON MRN: TBH:[id number] date: 1985 Sex: F Assigned Patient Location: [facility] Current Patient Location: [facility] Accession/Order Number: [id number] Exam Date: 05/10/2024 14:36 Report Date: 05/10/2024 [...] M.D. Signed By: 05/10/241603 DD/ 01 TD/TT: Folder Machine Adjuster: SHILOH HealthcareRadiology Study observation (narrative)SHILOH HealthcareUS PELVIS Ordered By: Radiologist Radiology on 51-96-7787MMOV Healthcare Work Phone: US for pregnancyon 21-87-1246SumBrendan [place] [phone] Ultrasound Report Signed Patient: SANNA RENDON MR#: [id number] : 1985 Acct:[id number] Age/Sex: 38 / F ADM Date: Loc: [facility] 258-[address]: Wilton Herrmann D.O. Ordering Physician: Wilton Herrmann D.O. Date of Service: 05/10/24 Procedure(s): US OB limited Accession Number(s): [id number] cc: Wilton Herrmann D.O.; PENELOPE CASAS [address] [address] Patient Name: SANNA RENDON MRN: [id number]:[id number] date: 1985 Sex: F Assigned Patient Location: [facility] Current Patient Location: [place] Accession/Order Number: [id number] Exam Date: 05/10/2024 08:30 Report Date: 05/10/2024 [...] M.D. Signed By: 05/10/24928 DD/ 5 TD/TT: Folder Machine Adjuster:ELVERadiologPacheco morales, - 05/10/2024 [place] [address] Ultrasound Report Signed Patient: SANNA RENDON MR#: [id number] : 1985 Acct:[id number] Age/Sex: 38 / F ADM Date: Loc: [facility] 258-[address]: Wilton Herrmann D.O. Ordering Physician: Wilton Herrmann D.O. Date of Service: 05/10/24 Procedure(s): US OB limited Accession Number(s): [id number] cc: Wilton Herrmann D.O.; PENELOPE CASAS [place] [address] Patient Name: SANNA RENDON MRN: [facility]:[id number] date: 1985 Sex: F Assigned Patient Location: [facility] Current Patient Location: [place] Accession/Order Number: [id number] Exam Date: 05/10/2024 08:30 Report Date: 05/10/2024 [...] GA by US: 12 weeks 5 days KLADUIA by US: 11/17/2024 US/US OB limited IMPRESSION: 1. Findings compatible with demise. Electronically authenticated by: HUMERA KIM Date: 05/10/2024 09:26 Dictated By: Humera Kim M.D. Signed By: 05/10/24928 DD/ 5 TD/TT: Folder Machine Adjuster: SHILOH HealthcareRadiology Study observation (narrative)NOMS HealthcareUS for pregnancyOrdered By: Radiologist Radiology on 23-91-7911PNPY Healthcare Work Phone: us OB TRANSVAGINALon 57-76-4790EA OB TRANSVAGINALTITLE OF EXAM: OB Ultrasound: REASON [...] period was 01/29/2024.Urinalysis macro (dipstick) panel (U)on 40-09-7407Gjwwammoe, UANegativeNegative - 4(70) +++ mg/dLNOMN Healthcare Blood, UANegativeNegative - 50 Max/mcLNOMN HealthcareClarity, UAClearNOMN HealthcareColor, UAYellowNOMN HealthcareGlucose, UANegativeNegative - 2000(110) ++++ mg/dLNOMN HealthcareInterpretation and review of laboratory resultsNormal NOMS HealthcareKetones, UANegativeNegative - 160(16) ++++ mg/dLNOMN Healthcare Leukocytes, UANegativeNegative - 500+++ John/mcLNOMN HealthcareNitrite, UA NegativeNegative - PositiveNOMS HealthcarepH, UA65 - 9NOMS HealthcareProtein, UA NegativeNegative - 2000(20) ++++ mg/dLNOMN HealthcareSpec Grav, UA1.011 - 1.03 NOMS HealthcareUrobilinogen, UA0.20.2 - 12 mg/dLNOMS HealthcareNOMS Healthcare BOX TESTon 30-70-7315FTO TEST SENT OUTYNOMS VgftrvxktpMVE4EQFGOGPYW Healthcare NPO25306/13/23NOMS HealthcareUNITY BOX CLINISYNCNOMN HealthcareTBH DRUG SCREEN RAPID (URINE)on 33-70-6222VFKNOUAXKYI SCREEN URINENegativeNEGATIVENOMS HealthcareBARBITURATES SCREEN URINENegative NEGATIVENOMS HealthcareBENZODIAZEPINES [...] TRICYCLIC ANTIDEPRESSANT URINENegativeNEGATIVENOMS HealthcareCLINISYNCNOMS HealthcareUS OB TRANSVAGINALon 78-84-6554[place]tl[place] [address] Ultrasound Report Signed Patient: Sanna Rendon MR#: [id number] : 1985 Acct:[id number] Age/Sex: 38 / F ADM Date: 04/04/24 Loc: [facility] Attending Dr: Wilton Herrmann D.O. Ordering Physician: Wilton Herrmann D.O. Date of Service: 04/04/24 Procedure(s): US OB transvaginal Accession Number(s): [id number] cc: Wilton Herrmann D.O.; PENELOPE CASAS [place] [phone] Patient Name: SANNA RENDON MRN: TBH:[id number] date: 1985 Sex: F Assigned Patient Location: [facility] Current Patient Location: Accession/Order Number: [id number] Exam Date: 04/04/2024 09:43 Report Date: 04/05/2024 [...] Signed By: 04/05/24 0442 DD/ 0439 TD/TT: Folder Machine Adjuster:TBHRadiology, Radiologist, MD - 04/05/2024 [place] [address] Ultrasound Report Signed Patient: Sanna Rendon MR#: [id number] : 1985 Acct:[id number] Age/Sex: 38 / F ADM Date: 04/04/24 Loc: [facility] Attending Dr: Wilton Herrmann D.O. Ordering Physician: Wilton Herrmann D.O. Date of Service: 04/04/24 Procedure(s): US OB transvaginal Accession Number(s): [id number] cc: Wilton Herrmann D.O.; PENELOPE CASAS [place] [phone] Patient Name: SANNA RENDON MRN: TBH:[id number] date: 1985 Sex: F Assigned Patient Location: [facility] Current Patient Location: Accession/Order Number: [id number] Exam Date: 04/04/2024 09:43 Report Date: 04/05/2024 [...] M.D. Signed By: 04/05/242 DD/ 8 TD/TT: Folder Machine Adjuster: SHILOH HealthcareRadiology Study observation (narrative)[facility] SpringsUS OB TRANSVAGINALOrdered By: Radiologist Radiology on 93-94-2037OXUE [employer] Work Phone: HCG ( test) Ql (U)on 55-90-3907Ivroewkdnguyuf and review of laboratory resultsAbnormalNOMS HealthcarePreg Test, UrPositive NegativeNOPemiscot Memorial Health SystemsNOMN HealthcareUrinalysis macro (dipstick) panel (U)on 72-32-2767Jrpnzgjdz, UANegativeNegative - 4(70) +++ mg/dLNOMS HealthcareBlood, UANegativeNegative - 50 Max/mcLNOMS HealthcareClarity, UAClearNOMS Healthcare Color, UAYellowNOMS HealthcareGlucose, UANegativeNegative - 2000(110) ++++ mg/dL NOMS HealthcareInterpretation and review of laboratory resultsNormalNOMN HealthcareKetones, UANegativeNegative - 160(16) ++++ mg/dLNOMS Healthcare Leukocytes, UANegativeNegative - 500+++ John/mcLNOMS HealthcareNitrite, UA NegativeNegative - PositiveNOMS HealthcarepH, UA5.55 - 9NOMS HealthcareProtein, UANegativeNegative - 2000(20) ++++ mg/dLNOMS HealthcareSpec Grav, UA1.021 - 1.03 NOMS HealthcareUrobilinogen, UA1.00.2 - 12 mg/dLNOMS HealthcareNOMS HealthcareC Urineon 26-99-1697Pbaukttd identified Cx Nom (U)Microbiology PROCEDURE: Urine Culture [R1] SOURCE: U CleanCatch BODY SITE: COLLECTED DATE/TIME: 03/01/2024 10:30 EDT RECEIVED DATE/TIME: 03/01/2024 13:48 EDT START DATE/TIME: 03/01/2024 13:48 EDT FREE TEXT SOURCE: Wilton HERRMANN DO, DO, Corey R FINAL REPORTS Final Report [] Verified Date/Time: 03/03/2024 08:52 EST 2,000 cfu/ml Mixed skin contaminants Performing Locations R1: This test was performed at: [facility], [address] [place] [address], [facility] , , XqroqcPdwsahBethesda North HospitalComment on above:Performed By: #### [id number] #### [facility] [address] [place] [address]JlSM Quanton 43-52-5318CLW.beta subunit Qn747 m[IU]/mLHigh1-3 [facility] Arms HospitalComment on above:Result Comment: 'F NON < 1 - 3' ' 0.2 - 1 WEEK = 5 TO 50' ' 1 - 2 WEEKS = 50 - 500' ' 2 - 3 WEEKS = 100 - 5000' ' 3 - 4 WEEKS = 500 - 27571' ' 4 - 5 WEEKS = 1000 - 51907' ' 5 - 6 WEEKS = 56377 - 955122' ' 6 - 8 WEEKS = 04383 - 652076' ' 8 - 12 WEEKS = 47866 - 710686'Performed By: #### [id number] #### [facility] [address] [place], [place] [address]GJZRTDGZLMakyqgi By: SYSTEM SYSTEM on 69-42-5400NVP.beta subunit Qn747 m[IU]/mLHigh1 - 3 mIU/mLRemisol ChemComment on above:Result Comment: 'F NON < 1 - 3' ' 0.2 - 1 WEEK = 5 TO 50' ' 1 - 2 WEEKS = 50 - 500' ' 2 - 3 WEEKS = 100 - 5000' ' 3 - 4 WEEKS = 500 - 58411' ' 4 - 5 WEEKS = 1000 - 45300' ' 5 - 6 WEEKS = 13525 - 584525' ' 6 - 8 WEEKS = 74548 - 202893' ' 8 - 12 WEEKS = 58209 - 037160'BhCG Quanton 19-58-3543KQK.beta subunit Qn268 m[IU]/mLHigh1-3FCincinnati Children's Hospital Medical CenterComment on above:Result Comment: 'F NON < 1 - 3' ' 0.2 - 1 WEEK = 5 TO 50' ' 1 - 2 WEEKS = 50 - 500' ' 2 - 3 WEEKS = 100 - 5000' ' 3 - 4 WEEKS = 500 - 86715' ' 4 - 5 WEEKS = 1000 - 32071' ' 5 - 6 WEEKS = 31854 - 660276' ' 6 - 8 WEEKS = 67804 - 509542' ' 8 - 12 WEEKS = 98741 - 676116'Performed By: #### [id number] #### [facility] [address] [place], [place] [address]UeZK Quanton 24-06-3444JXG.beta subunit Qn123 m[IU]/mLHigh1-3 [facility] HospitalComment on above:Result Comment: 'F NON < 1 - 3' ' 0.2 - 1 WEEK = 5 TO 50' ' 1 - 2 WEEKS = 50 - 500' ' 2 - 3 WEEKS = 100 - 5000' ' 3 - 4 WEEKS = 500 - 11494' ' 4 - 5 WEEKS = 1000 - 14458' ' 5 - 6 WEEKS = 25794 - 150718' ' 6 - 8 WEEKS = 90507 - 884931' ' 8 - 12 WEEKS = 82370 - 036831'Performed By: #### [id number] #### [facility] [address] [place], [place] [address]GOFAXGOBSRfvwqdv By: SYSTEM SYSTEM on 22-57-9563VHW.beta subunit Qn123 m[IU]/mLHigh1 - 3 mIU/mLRemisol ChemComment on above:Result Comment: 'F NON < 1 - 3' ' 0.2 - 1 WEEK = 5 TO 50' ' 1 - 2 WEEKS = 50 - 500' ' 2 - 3 WEEKS = 100 - 5000' ' 3 - 4 WEEKS = 500 - 30684' ' 4 - 5 WEEKS = 1000 - 81011' ' 5 - 6 WEEKS = 52692 - 147242' ' 6 - 8 WEEKS = 62438 - 069740' ' 8 - 12 WEEKS = 40340 - 964935'IlrT3bxf 65-86-3203InT8h (Bld) [Mass fraction]6.0 %High<=5.9S[facility] Arms HospitalComment on above:Performed By: #### [id number] #### [facility] [address] [place], [place] [address]FXT Screen 4th Generation wRfxon 53-60-0828KEL 1+2 Ab+HIV1 p24 Ag IA QlNon-ReactiveInvalid Interpretation CodeNon ReactiveSheltering Arms HospitalComment on above:Result Comment: HIV-1/HIV-2 antibodies and HIV-1 p24 antigen were NOT detected. There is no laboratory evidence of HIV infection. HIV Negative Performed at: [facility] [address] [place], [place] [id number] PhD Jd MontanoPerformed By: #### [id number] #### [facility] [address] [place], [place] [address]LvFC Quanton 43-75-1774GXQ.beta subunit Qn52 m[IU]/mLHigh1-3 [facility] HospitalComment on above:Result Comment: 'F NON < 1 - 3' ' 0.2 - 1 WEEK = 5 TO 50' ' 1 - 2 WEEKS = 50 - 500' ' 2 - 3 WEEKS = 100 - 5000' ' 3 - 4 WEEKS = 500 - 75941' ' 4 - 5 WEEKS = 1000 - 33742' ' 5 - 6 WEEKS = 77992 - 439240' ' 6 - 8 WEEKS = 71102 - 275911' ' 8 - 12 WEEKS = 78647 - 508127'Performed By: #### [id number] #### [facility] [address] [place], [place] [address]TYCBHMMAGAvmowzf By: SYSTEM SYSTEM on 70-83-7597Oxooimwcqby [Mass/Vol]225 mg/bAAftv973 - 200 mg/dLRemisol ChemCholesterol in HDL [Mass/Vol] [...] 3 - 4 WEEKS = 500 - 46810' ' 4 - 5 WEEKS = 1000 - 89772' ' 5 - 6 WEEKS = 68098 - 289733' ' 6 - 8 WEEKS = 30961 - 176967' ' 8 - 12 WEEKS = 47350 - 254109'Triglyceride [Mass/Vol]212 mg/dLHigh <=149mg/dLRemisol ChemTSH Qn5.68 m[IU]/LHigh0.34 - 5.60 mcIU/mLRemisol Chem CHEMISTRYOrdered By: Chelsey Price on 01-89-4080FgS3f (Bld) [Mass fraction]5.9 %Normal<=5.9%[facility] VbdhInvdXXSkrN0kbj 56-80-0227EeH4w (Bld) [Mass fraction]5.9 % Normal<=5.9S[facility] HospitalComment on above:Performed By: #### [id number] #### [facility] [address] [place], [place] [address] Panelon 29-95-6431Xyhwayoonef [Mass/Vol]225 mg/dLHigh 120-200S[facility] HospitalComment on above:Performed By: #### [id number] #### [facility] [address] [place], [place] [address]Fkbfvvbxexa in HDL [Mass/Vol]40 mg/dLInvalid Interpretation CodeSheltering Arms HospitalComment on above:Result Comment: '>= 60 LOW RISK' '<= 40 HIGH RISK'Performed By: #### [id number] #### [facility] [address] [place], [place] [address]Niynamuidao in LDL [Mass/Vol]171 mg/dLHigh<=129S[facility] Arms HospitalComment on above:Performed By: #### [id number] #### [facility] [address] [place], [place] [address]Fgqstzpvebz in VLDL [Mass/Vol]42 mg/dLHigh7-40S[facility] Arms HospitalComment on above:Performed By: #### [id number] #### [facility] [address] [place], [place] [address]Jpkickpiorcz [Mass/Vol]212 mg/dLHigh<=149S[facility] Arms HospitalComment on above:Performed By: #### [id number] #### [facility] [address] [place], [place] [address]TLGto 79-10-3132LVG Qn5.68 m[IU]/LHigh0.34-5.60S[facility] HospitalComment on above:Performed By: #### [id number] #### [facility] [address] [place], [place] [address]Pknggsrcmy Visit Summaryon 39-68-9807Ftwcrlyptl Visit Summary Ambulatory Visit Summary SANNA RENDON [...] EST With: Penelope CASAS DO, FAAFP Where: [facility] [address], [facility] [place] [address]- You Need to Schedule the Following Appointments Follow Up with Penelope CASAS DO, FAAFP, FAM, PED When: In 3 months Where: [address], [facility] [place] [address]- You Need to Complete the Following HgbA1c, [...] virus infection Vaginal marlee (more content not included)...[facility] Medicine Office/Clinic Noteon 69-38-9426Qgzdjj Medicine Office/Clinic NoteFasolomon [facility] Medicine Office/Clinic Note Chief Complaint Patient [...] 40 mg subcu, continue to follow-up with systems engineer 5. Gestational diabetes (O24.419: Gestational diabetes mellitus in , unspecified control) Metformin 500 mg daily XR tabs 2/day per SENIOR IT ARCHITECT Ordered: HgbA1c HgbA1c HgbA1c HgbA1c 6. Well [...] FAAFP, CHRIS, PED In 3 months [address], [place] [place] [address]- Additional Instructions: Patient Education Acute Bronchitis, Adult Problem List/Past Medical History Ongoing Acute (more content not included)...[facility] HospitalComment on above:Result Comment: Electronically Signed [...] Community acquired pneumonia Refills: 5 Pickup at [facility] 1985 New azithromycin (azithromycin 250 mg Tab 5-day Dose Pack (Z-Jonny)) 1 Packets By Mouth As Directed Community acquired pneumonia Duration: 5 Days as directed on package labeling Pickup at [facility] 1985 Unchanged enoxaparin (Lovenox 40 mg/ 0.4 [...] physician if questions or concerns Pharmacy Information [facility] [address] [place] [id number] [phone] Allergies Milk Products (Illness) ciprofloxacin (Numbness and [...] you for choosing us for your care. [facility] Medicine Office/Clinic Noteon 54-44-3967Rueomo Medicine Office/Clinic NoteFasolomon [facility] Medicine Office/Clinic Note Chief Complaint SOB [...] a 38 Years White Female presenting to [facility] with body aches and [...] puff(s), Inhalation, q6hr, 1 EA, Refill(s) 5, [facility] 1985, 168, cm, 02/01/2414:43:00 EDT, Height/Length Dosing, 101.1, kg, 02/02/24 14:43:00 EDT, Weight Dosing azithromycin, = 1 packet(s), Oral, As Directed, as directed on package labeling, X 5 day(s), # 6 tab(s), Refills(s) 0, Pharmacy: [facility] 1985, 168, cm, 02/02/24 14:43:00 [...] MD, FAM, MED Only if needed [address] [place] [phone] Additional Instructions: Problem List/Past Medical History Ongoing [...] Vitamin D, 2000 International_Unit (more content not included)...[facility] HospitalComment on above:Result Comment: Electronically Signed By: Anni Bernstein MD\.br\Date and Time Signed: 02/01/2415:03 EDTMRI Brain w/o Contraston 19-73-5908WXZ Brain w/o ContrastExam Date/Time: 12/06/2023 14:48 EDT [...] MD Transcribed by: LINDY Technologist: Patt [facility] HospitalCortisolon 11-74-4137Nwjqgqeh [Mass/Vol]12.5 microgram/dLInvalid Interpretation Code 6.2-19.4FCincinnati Children's Hospital Medical CenterComment on above:Result Comment: Please Note: The reference interval and flagging for this test is for an AM collection. If this is a PM collection please use: Cortisol PM: 2.3-11.9 Performed at: [employer] [id number] PhD Jd Garciaformed By: #### [id number] #### [facility] [address] [place], [place] [address]A8 Freeon 94-60-6574Zzha T3 [Mass/Vol]2.5 pg/mLInvalid Interpretation Code2.0-4.4FCincinnati Children's Hospital Medical CenterComment on above:Result Comment: Performed at: [employer] [id number] PhD Jd Garciaformed By: #### [id number] #### [facility] [address] [place], [place] [address]Gblfbjzia 59-47-3527Kmobhqz [Catalytic activity/Vol]38 U/L Vosvqh39-521HjmrhqSheltering Arms HospitalComment on above:Performed By: #### [id number] #### [facility] [address] [place], [place] [address]GXIMPLQCYYuldcas By: SYSTEM SYSTEM on 72-54-8791Nalxlvt [Catalytic activity/Vol]38 U/VByrika88 - 157 unit/LRemisol ChemCobalamin (Vitamin B12) [Mass/Vol]328 pg/fUItfqqq31 - 1500 pg/mLRemisol ChemCRP [Mass/Vol] 0.2 mg/dLNormal<=1.9mg/dLRemisol ChemFree T4 [Mass/Vol]0.58 ng/dLNormal0.58 - 1.64 ng/dLRemisol ChemTSH Qn4.97 m[IU]/LNormal0.34 - 5.60 mcIU/mLRemisol ChemCRP on 83-47-0666ZJN [Mass/Vol]0.2 mg/dLNormal<=1.9[facility] Comment on above:Performed By: #### [id number] #### [facility] [address] [place] [address]Dfmh T4on 26-04-8668Hfrn T4 [Mass/Vol]0.58 ng/dLNormal0.58-1.64 [facility] HospitalComment on above:Performed By: #### [id number] #### [facility] [address] [place], [place] [address]LBLLVMDLYBGncphjp By: Isha Zheng on 34-61-0223QDZ (Bld) [Velocity]18 mm/hNormal0 - 34 mm/FT HemeAutoSSSed Rate Automatedon 17-54-9975NJP (Bld) [Velocity]18 mm/hNormal0-34[facility] Comment on above:Performed By: #### [id number] #### [facility] [address] [place], [place] [address]ENMzn 56-47-8135WCO Qn4.97 m[IU]/LNormal0.34-5.60S[facility] Arms HospitalComment on above:Performed By: #### [id number] #### [facility] [address] [place], [place] [address]Ykj B12on 52-48-2896Qjhguimec (Vitamin B12) [Mass/Vol]328 pg/mL Vvyzag76-4364YlrxalSheltering Arms HospitalComment on above:Performed By: #### [id number] #### [facility] [address] [place], [place] [address]Vvwxaa Medicine Office/Clinic Noteon 22-99-4354Lonrqt Medicine Office/Clinic NoteFasolomon [facility] Medicine Office/Clinic Note Chief Complaint Right [...] Iron deficiency) Mild, as reported by her systems engineer, labs from 2022 appear normal 6. Pre-diabetes (R73.03: Prediabetes) Last A1c Continue metformin Nutrition: - Maintain optimal weight - Calorie restriction - Plant-based diet; high polyunsatur (more content not included)...[facility] HospitalComment on above:Result Comment: Electronically Signed By: Jayant YEBOAH, Monica Varela\.br\Date and Time Signed: 11/09/23 15:56 EDTPhysician Referralon 59-01-9889Ipfjboiiz Referral [id number]#1.00TIFFBethesda North HospitalAmbulatory Visit Summaryon 95-60-1936Bfpbricicw Visit Summary SANNA RENDON :1985 Visit Date:10/23/2023 [...] (Vitamin D) fluticasone nasal (Flonase 0.05 mg/inh Medina) metformin (MetFORMIN (Eqv-Glucophage XR) 500 mg oral [...] EDT With: Penelope CASAS DO, FAAFP [facility]/Clinic Noteon 63-85-9591Rjqrzu Medicine Office/Clinic NoteChief Complaint pt here for [...] Mouth: mucous membranes pink, moist and intact. [place] posterior oropharynx, no palatal inflammation,uvula midline, no [...] 106.2, kg, 10/23/23 16:55:00 EDT, Weight Dosing [facility] [place] 2. Nasal polyps (J33.9: Nasal polyp, unspecified) pt reported - moved before previous ENT could perform surgery - submitted new referral at this time Ordered: [facility] [place] 3. Deviated septum (J34.2: Deviated nasal septum) pt reported - moved before previous ENT could perform surgery - see #2 Ordered: [facility] [place] 4. BMI 37.0-37.9, adult [...] Dosing 5. Obesity ( (more content not included)...[facility] Comment on above:Result Comment: Electronically Signed By: Shirlene YEBOAH, Lourdes Baltazar\.br\Date and Time Signed: 10/23/23 17:13 EDTPatient Educationon 69-84-6477Jtqxsgu EducationENT Deviated Septum The septum is the [...] specializes in ear, nose, and throat disorders (applications programmer analyst, or ENT) for more tests and [...] Follow these instructions at home: ? Take yhfd-ffi-zkwxuam and prescription medicines only as told by [...] specializes in ear, nose, and throat disorders (applications programmer analyst, or ENT) for more tests and treatment. This information is not intended to replace advice given to you by your health care provider. Make sure you discuss any questions you have with your health care provider. Document Revised: 12/12/2021 Document Reviewed: 12/12/2021 [employer] Patient Education ? 2022 [employer]. Nasal Polyps Nasal polyps are growths [...] not cancer (more content not included)...NormalFisher Medstar Harbor HospitalCT Abdomen/Pelvis w/o Contraston 78-13-8072PV Abdomen/Pelvis w/o Contrast Exam Date/Time: 09/28/2023 19:58 [...] Given? No Oral contrast amount in ml's: 0NormKnox Community HospitalB hCG Qualon 78-14-1379Nreb HCG ( test) QlNegativeBethesda North Hospital Comment on above:Performed By: #### [id number] #### [facility] [address] [place], [place] [address]SBHfb 55-18-5039Ukeau gap [Moles/Vol]13 mmol/LNormal6-16S[facility] Arms HospitalComment on above:Performed By: #### [id number] #### [facility] [address] [place], [place] [address]Katakrn [Mass/Vol]9.9 mg/dLNormal8.9-11.1FCincinnati Children's Hospital Medical CenterComment on above:Performed By: #### [id number] #### [facility] [address] [place], [place] [address]Lfpupaem [Moles/Vol]101 mmol/XAhwrfu233-917GgjgzrSheltering Arms HospitalComment on above:Performed By: #### [id number] #### [facility] [address] [place], [place] [address]NK8 [Moles/Vol]25 mmol/EKuxkhe68-42UgzerfSheltering Arms Hospital Comment on above:Performed By: #### [id number] #### [facility] [address] [place], [place] [address]Htxdhlmkda [Mass/Vol]0.9 mg/dLNormal0.5-1.3FCincinnati Children's Hospital Medical CenterComment on above:Performed By: #### [id number] #### [facility] [address] [place], [place] [address]Emxdtdn [Mass/Vol]94 mg/lBYajnjy81-093EeclvlSheltering Arms HospitalComment on above:Performed By: #### [id number] #### [facility] [address] [place], [place] [address]Fgakyagie [Moles/Vol]3.6 mmol/LNormal3.5-5.3FCincinnati Children's Hospital Medical CenterComment on above:Performed By: #### [id number] #### [facility] [address] [place], [place] [address]Pslvni [Moles/Vol]135 mmol/YSeanxg990-483CtepkfSheltering Arms HospitalComment on above:Performed By: #### [id number] #### [facility] [address] [place], [place] [address]Vglq nitrogen [Mass/Vol]8 mg/dLNormal5-21S[facility] Arms HospitalComment on above:Performed By: #### [id number] #### [facility] [address] [place] [address]Trii nitrogen/Creatinine [Mass ratio]9 No OjiptUat18-18PaqgmmSheltering Arms HospitalComment on above:Performed By: #### [id number] #### [facility] [address] [place] [address]BXE w/ Auto Diffon 59-83-3087Famnculrx/100 WBC (Bld)0.7 %Normal 0.0-2.0S[facility] Arms HospitalComment on above:Performed By: #### [id number] #### [facility] [address] [place] [address]Ambelvbbw/Leukocytes Auto (Bld) [Pure # fraction]0.1 E9/LNormal 0.0-0.2FCincinnati Children's Hospital Medical CenterComment on above:Performed By: #### [id number] #### [facility] [address] [place] [address]Qstegqraeyb (Bld) [#/Vol]0.0 E9/LNormal0.0-0.5FCincinnati Children's Hospital Medical CenterComment on above:Performed By: #### [id number] #### [facility] [address] [place] [address]Fustoohinvq/100 WBC (Bld)0.5 %Normal0.0-8.0[facility] Arms HospitalComment on above:Performed By: #### [id number] #### [facility] [address] [place] [address]Eqpxzfbtcxs distribution width (RBC) [Ratio]14.3 %High10.9-14.2 [facility] HospitalComment on above:Performed By: #### [id number] #### [facility] [address] [place] [address]Pyscdeahsw (Bld) [Volume fraction]39.5 %Lvowts84.0-46.0S[facility] HospitalComment on above:Performed By: #### [id number] #### [facility] [address] [place] [address]Vwuhpnomyi (Bld) [Mass/Vol]13.2 g/xVRmfdgy09.0-16.0[facility] HospitalComment on above:Performed By: #### [id number] #### [facility] [address] [place] [address]Kypwpphdqqh (Bld) [#/Vol]3.5 E9/LNormal1.0-4.0[facility] HospitalComment on above:Performed By: #### [id number] #### [facility] [address] [place] [address]Rseyontlztn/100 WBC (Bld)35.6 %Slcwzs07.0-50.0[facility] HospitalComment on above:Performed By: #### [id number] #### [facility] [address] [place] [address] 024[address]CZG (RBC) [Entitic mass]29.3 bpUffuty30.0-34.0[facility] HospitalComment on above:Performed By: #### [id number] #### [facility] [address] [place] [address]JAKW (RBC) [Mass/Vol]33.5 g/tGCbmbsc57.4-36.0[facility] HospitalComment on above:Performed By: #### [id number] #### [facility] [address] [place] [address]JCD (RBC) [Entitic vol]87.4 dPZrrqhx73.0-100.0[facility] HospitalComment on above:Performed By: #### [id number] #### [facility] [address] [place] [address]65[address]Qrxataepb (Bld) [#/Vol]0.7 E9/LNormal0.2-1.0[facility] HospitalComment on above:Performed By: #### [id number] #### [facility] [address] [place] [address]Jqdhfpliyyt (Bld) [#/Vol]5.6 E9/LNormal2.0-7.5FCincinnati Children's Hospital Medical CenterComment on above:Performed By: #### [id number] #### [facility] [address] [place] [address]Xaitlxulwrk/100 WBC (Bld)56.4 %Vcitph48.0-75.0[facility] HospitalComment on above:Performed By: #### [id number] #### [facility] [address] [place] [address]Zcthzpfg mean volume (Bld) [Entitic vol]8.1 fLNormal6.4-10.8 [facility] HospitalComment on above:Performed By: #### [id number] #### [facility] [address] [place] [address]Vxftijtth (Bld) [#/Vol]360.0 E9/IWubzlo387.0-500.0[facility] HospitalComment on above:Performed By: #### [id number] #### [facility] [address] [place] [address] 08[address]LJS (Bld) [#/Vol]4.5 E12/LNormal4.3-5.9[facility] HospitalComment on above:Performed By: #### [id number] #### [facility] [address] [place] [address]YDF corrected for nucl RBC Auto (Bld) [#/Vol]9.9 E9/LNormal 4.0-11.0[facility] HospitalComment on above:Performed By: #### [id number] #### [facility] [address] [place] [address]GCWXSUUSUHafmauk By: SYSTEM SYSTEM on 44-46-7689Phbtazy [Mass/Vol]4.8 g/dLNormal3.3 - 5.0 gm/dLRemisol ChemAlbumin/Globulin [Mass ratio] 1.6 {ratio}Normal1.1 - 2.2Remisol ChemALP [Catalytic activity/Vol]66 [iU]/d Viwzjw09 - 98 Int._Unit/LRemisol ChemALT No additional P-5'-P [Catalytic activity/Vol]16 [iU]/dNormal6 - 46 Int._Unit/LRemisol ChemAnion gap [Moles/Vol] 13 mmol/LNormal6 - 16 mEq/LRemisol ChemAST [Catalytic activity/Vol]15 [iU]/d Normal5 - 43 Int._Unit/LRemisol ChemBilirubin [Mass/Vol]0.3 mg/dLNormal0.0 - 1.1 mg/dLRemisol ChemBilirubin.direct [Mass/Vol]0.0 mg/dLNormal0.0 - 0.4 mg/dL Remisol ChemBilirubin.indirect [Mass or moles/Vol]0.3 mg/dLNormal0.1 - 0.9 mg/dL Remisol ChemCalcium [Mass/Vol]9.9 mg/dLNormal8.9 - 11.1 mg/dLRemisol Chem Chloride [Moles/Vol]101 mmol/VBcjtfr551 - 111 mmol/LRemisol ChemCO2 [Moles/Vol] 25 mmol/CWecmfz30 - 31 mmol/LRemisol ChemCreatinine [Mass/Vol]0.9 mg/dLNormal0.5 - 1.3 mg/dLRemisol PynafWBI89 mL/min/1.73 d9Dotaqy>=59mL/min/1.73 m5Ihdqxzp ChemGlobulin (S) [Mass/Vol]3.0 g/dLNormal1.4 - 4.0 gm/dLRemisol ChemGlucose [Mass/Vol]94 mg/wBLbbpro32 - 199 mg/dLRemisol ChemLipase [Catalytic activity/Vol]26 U/NKpdojo35 - 58 unit/LRemisol ChemPotassium [Moles/Vol]3.6 mmol/LNormal3.5 - 5.3 mmol/LRemisol ChemProtein [Mass/Vol]7.8 g/dLNormal6.0 - 7.8 gm/dLRemisol ChemSodium [Moles/Vol]135 mmol/LGkrzpg830 - 145 mmol/LRemisol ChemUrea nitrogen [Mass/Vol]8 mg/dLNormal5 - 21 mg/dLRemisol ChemUrea nitrogen/Creatinine [Mass ratio]9 mg/mgLow10 - 20Remisol ChemConsent for Treatmenton 79-08-9726Kutrmnk for Treatment [id number]#1.00[facility] HospitalDischarge Instructionson 66-56-5541Fmsqkjgue Instructions [id number]#1.00TIFFort [facility] Clinical Summaryon 97-57-0118VC Clinical Summary [place] [id number] ED Clinical Summary Person Information Name: SANNA RENDON [facility] Age: 37 Years : 1985 Sex: Female Language: French PCP: Penelope CASAS DO, FAAFP Marital Status: Phone: [phone] Visit Id: Visit Reason: Medical problem - [...] 21:22:15 09/28/2023 21:22:15 09/28/2023 21:22:15 AD[address]: [facility] [id number] PHYS DOC NOTES: MEDICAL INFORMATION: Prescriptions Given: Medications to Continue with No Changes Other Medications enoxaparin (Lovenox 40 mg/0.4 mL Injection) 40 Milligram Subcutaneous every 24 hours. ergocalciferol (Vitamin D) 2,000 International unit By Mouth every week. fluticasone nasal (Flonase 0.05 mg/inh Medina) 2 Sprays Nasal Inhalation every day. each nostril. metformin (MetFORMIN (Eqv-Glucophage XR) 500 mg oral tablet, extended release) 2 Tablets By Mouth every day. PATIENT EDUCATION INFORMATION: Instructions: Abdominal Pain, Adult Follow up: With: Address: When: Penelope CASAS [address] [place] [address], [place] [address] Business (1) In 3 days DIAGNOSIS: 1:Abdominal painNoHolzer [facility] Center – Jackson CenterED Note-Physicianon 09-28-2023 ED Note-PhysicianPatient was signed [...] understanding agreement this plan is discharged stable condition.[facility] HospitalComment on above:Result Comment: Electronically Signed By: Sidney Daly DO\.cedrick\Date and Time Signed: 09/28/23 21:12 EDTED Note-PhysicianBasic Information Time Seen: Bijan Miramontes PA-C 09/28/2023 18:46 Chief Complaint Pt woke up around 7 am and started getting a pain on R side of belly button. States feels bloated and like her abdomen is coral.Was sent here from [facility] for possible appendicitis. Nausea, denies vomiting. History [...] mL, IV, Once Home Flonase 0.05 mg/inh Medina, 2 spray(s), Nasal, Daily Lovenox 40 mg/0.4 [...] Lab Results No qual (more content not included)...[facility] North HospitalComment on above:Result Comment: Electronically Signed By: Bijan Miramontes PA-C\.br\Date and Time Signed: 09/27/2417:50 EDT\.br\Electronically Co-Signed By: Benny Uribe DO\.br\Date and Time Co-Signed: 09/27/2418:44 EDTED Patient Education Noteon [id number] Patient Education NoteGastroenterology Abdominal Pain, Adult Pain [...] these instructions at home: Medicines ? Take nbom-qym-wdxkmrx and prescription medicines only as told by [...] your condition for any changes. ? Take aufe-ibd-gibwbdv and prescription medicines only as told by [...] Reviewed: 08/25/2019 Elsevier Patient Education ? 2022 [employer].[facility] ED Patient Summaryon [id number] Patient Summary [address] [address] Patient Discharge Instructions Person Information Name: SANNA RENDON Age: 37 Years Arrival Date: 09/28/2023 18:21:25 Discharge Diagnosis: 1:Abdominal pain Primary Care Physician: Penelope CASAS DO, FAAFP Provider Information Primary Provider: Benny Uribe DO Advanced Capacitor Pack Press Operator:Bijan Miramontes PA-C The exam and treatment you received in the Emergency Department were for an urgent problem and are not intended as complete care. It is important that you follow up with a doctor, nurse practitioner,or physician?s office services assistant for ongoing care. If your symptoms [...] Follow-up Instructions: With: Address: When: Penelope CASAS [address] [place] [address], [place] [address] Business (1) In 3 days In the event that this physician does not participate in your insurance network, please consult with your insurance company to find a nearby participating provider. Patient Education Materials: Abdominal Pain, Adult A MESSAGE TO ALL PATIENTS REGARDING OPIOIDS PRESCRIPTION OPIOIDS: WHAT YOU NEED TO KNOW Prescription opioids can be used to help relieve jgibwgzv-fm-xdpwvd pain and are often prescribed following a [...] your community drug take- back program or yourAzaire Networksrmacy mail-back program, or flush them down the toilet, following guidance from the Food and Drug Administration (www.fda.gov/Drugs/ResourcesForYou). ? Visit www.cdc.gov/drugoverdose to learn about the risks of opioids abuse and overdose. ? If you believe you may be struggling with addiction, tell your health home health care case manager and ask for guidance or call [facility]?S National Helpline at 2-404-788-[facility]. v Source: Dep (more content not included)...[facility] Family Medicine Office/Clinic Noteon 05-15-9818Jkgpuc Medicine Office/Clinic NoteChief Complaint abdominal pain HPI [...] and agree with above documented HPI by biomedical engineering technologist. Portions of this record may have been created with voice recognition artificial intelligence software, specifically Contraqer, Healthiest You and or Aginova. Substitutions may have occurred due to the inherent limitations of voice recognition and artificial intelligence software. Patient is a 37-year-old female who presents to [facility] care, for right lower quadrant pain, that [...] Repeat BP 140/90. 37-year-old female presented to [facility], for right lower quadrant abdominal pain, worseningsymptoms throughout the day, history of ovarian cyst, still has her appendix, no right upper quadrant pain. Patient worsening pain on exam, but no acute abdomen. Patient is willing to go to the emergency room after being discharged from [facility], for further evaluation of right lower quadrant [...] loss. We can o (more content not included)...[facility] HospitalComment on above:Result Comment: Electronically Signed By: CHARLA QUINTEROS, JANET\.br\Date and Time Signed: 09/28/23 18:28 EDTHEMATOLOGYOrdered By: SYSTEM SYSTEM on 13-01-0414Ulgszelpk/100 WBC (Bld)0.7 %Normal0.0 - 2.0 %Remisol HemeBasophils/Leukocytes Auto (Bld) [Pure # fraction]0.1 E9/LNormal0.0 - 0.2 E9/LRemisol HemeEosinophils (Bld) [#/Vol]0.0 E9/LNormal0.0 - 0.5 E9/LRemisol HemeEosinophils/100 WBC (Bld)0.5 % Normal0.0 - 8.0 %Remisol HemeErythrocyte distribution width (RBC) [Ratio]14.3 % High10.9 - 14.2 %Remisol HemeHematocrit (Bld) [Volume fraction]39.5 %Vugmmf71.0 - 46.0 %Remisol HemeHemoglobin (Bld) [Mass/Vol]13.2 g/hPIqyczz31.0 - 16.0 gm/dL Remisol HemeLymphocytes (Bld) [#/Vol]3.5 E9/LNormal1.0 - 4.0 E9/LRemisol Heme Lymphocytes/100 WBC (Bld)35.6 %Rsjwos51.0 - 50.0 %Remisol HemeMCH (RBC) [Entitic mass]29.3 gmMcxsvm07.0 - 34.0 pgRemisol HemeMCHC (RBC) [Mass/Vol]33.5 g/dL Awojna37.4 - 36.0 gm/dLRemisol HemeMCV (RBC) [Entitic vol]87.4 bDYqkyln06.0 - 100.0 fLRemisol HemeMonocytes (Bld) [#/Vol]0.7 E9/LNormal0.2 - 1.0 E9/LRemisol HemeMonocytes/100 WBC (Bld)6.8 %Normal4.0 - 14.0 %Remisol HemeNeutrophils (Bld) [#/Vol]5.6 E9/LNormal2.0 - 7.5 E9/LRemisol HemeNeutrophils/100 WBC (Bld)56.4 % Jwtldp38.0 - 75.0 %Remisol HemePlatelet mean volume (Bld) [Entitic vol]8.1 fL Normal6.4 - 10.8 fLRemisol HemePlatelets (Bld) [#/Vol]360.0 E9/YUcwivx118.0 - 500.0 E9/LRemisol HemeRBC (Bld) [#/Vol]4.5 E12/LNormal4.3 - 5.9 E12/LRemisol HemeWBC corrected for nucl RBC Auto (Bld) [#/Vol]9.9 E9/LNormal4.0 - 11.0 E9/L Remisol HemeHep Func Panelon 84-05-8173Opcfggi [Mass/Vol]4.8 g/dLNormal3.3-5.0 [facility] HospitalComment on above:Performed By: #### [id number] #### [facility] [address] [place], [place] [address]Orbldgw/Globulin (S) [Mass conc ratio]1.2Yzwijs1.1-2.2FCincinnati Children's Hospital Medical CenterComment on above:Performed By: #### [id number] #### [facility] [address] [place] [address]ZOL [Catalytic activity/Vol]66 Int._Unit/ZWdyhsy21-15ZuorcxSheltering Arms HospitalComment on above:Performed By: #### [id number] #### [facility] [address] [place] [address]YDB No additional P-5'-P [Catalytic activity/Vol]16 Int._Unit/L Normal6-46S[facility] HospitalComment on above:Performed By: #### [id number] #### [facility] [address] [place] [address]OFH [Catalytic activity/Vol]15 Int._Unit/LNormal5-43S[facility] HospitalComment on above:Performed By: #### [id number] #### [facility] [address] [place] [address]Krmeqwpuw [Mass/Vol]0.3 mg/dLNormal0.0-1.1FCincinnati Children's Hospital Medical CenterComment on above:Performed By: #### [id number] #### [facility] [address] [place] [address]Fdrvyvmfl.direct [Mass/Vol]0.0 mg/dLNormal0.0-0.4FCincinnati Children's Hospital Medical CenterComment on above:Performed By: #### [id number] #### [facility] [address] [place] [address]Euszauibt.indirect [Mass or moles/Vol]0.3 mg/dLNormal0.1-0.9 [facility] HospitalComment on above:Performed By: #### [id number] #### [facility] [address] [place], [place] [address]Adayzsvf (S) [Mass/Vol]3.0 g/dLNormal1.4-4.0S[facility] HospitalComment on above:Performed By: #### [id number] #### [facility] [address] [place], [place] [address]Sahuztn [Mass/Vol]7.8 g/dLNormal6.0-7.8S[facility] HospitalComment on above:Performed By: #### [id number] #### [facility] [address] [place], [place] [address]Udsege Levelon 41-12-7874Dkokbu [Catalytic activity/Vol]26 U/L Hufswt94-59DajzkcSheltering Arms HospitalComment on above:Performed By: #### [id number] #### [facility] [address] [place], [place] [address]Zqhhyto Educationon 55-80-9381Xvzmecr EducationCardiovascular Hypertension, Adult Hypertension is another name [...] Keep all follow-up visits. Medicines ? Take gmua-vqy-jobfhzn and prescription medicines only as told by [...] blood. ? For m (more content not included)...[facility] HospitalRAD - Preliminary Cat Scan Reporton 43-94-1312OTZ - Preliminary Cat Scan Report [id number]#1.00TIFFNormalOhioHealth Berger HospitalEROLOGYOrdered By: Amanda Siegel on 19-53-3524Btdq HCG ( test) QlNegative (09/28/23 6:59 PM)[facility] Man SeroUA with Cult Rflxon 62-86-6908Lxtytvsez Ql (U)NegativeNormalNegativeSheltering Arms HospitalComment on above:Performed By: #### [id number] ####[facility] Slctbepqer5[address] AveNorlong island college hospitalk, [place]Fhcwfsw (U)ClearNormalClearNovant Health, Encompass Healther [facility] Harbor HospitalComment on above:Performed By: #### [id number] ####[facility] Xbnpxwuxgw[address] AveNorwalk, UU[address]Jnfgq (U)ColorlessAbnormalYellowSheltering Arms HospitalComment on above:Result Comment: Microscopic readings are only performed on those samples that meet specific criteria set forth by [facility].Performed By: #### [id number] ####[place] [address] AveNstamford hospital, [place]Acskiir Ql (U)Negative NormalNegativeSheltering Arms HospitalComment on above:Performed By: #### [id number] ####[address]ct AveNorgriffin hospital, [place] [address]Jxpxfnijzs Auto test strip (U) [Mass/Vol]NegativeNormalNegativeSheltering Arms HospitalComment on above:Performed By: #### [id number] ####[place] [address] AveNorgriffin hospital, [place]Dbwsxdz Auto test strip Ql (U)NegativeNormalNegativeSheltering Arms HospitalComment on above: Performed By: #### [id number] ####[place] [address] AveNorgriffin hospital, HH[address]Cxettnjup esterase Auto test strip Ql (U)Negative NormalNegativeSheltering Arms HospitalComment on above:Performed By: #### [id number] ####[facility] Giuhaomxds[address] AveNorgriffin hospital, [place] [address]Qqdikuh Auto test strip Ql (U)NegativeNormalNegativeSheltering Arms HospitalComment on above:Performed By: #### [id number] ####[place] [address] AveNorwalk, HJ[address]xI (U)7.0 [pH]Invalid Interpretation Code5.0-9.0S[facility] HospitalComment on above:Performed By: #### [id number] ####[facility] [address] [facility], II[address]Pmpxczu Ql (U)NegativeNormalNegativeSheltering Arms HospitalComment on above:Performed By: #### [id number] ####[facility] [address] [facility], RE[address]Dgastmrr gravity (U) [Rel density]1.003Invalid Interpretation Code1.005-1.030[facility] Comment on above:Performed By: #### [id number] ####[address], [place]Isapnnkpkmmm (U) [Mass/Vol]Negative NormalNegativeSheltering Arms HospitalComment on above:Performed By: #### [id number] ####[place] [address] [facility] [place] [address]Mfdq of Urine collection methodClean [facility] Comment on above:Performed By: #### [id number] ####[place] [address] [facility] PD27944MFXDUVHVKDQyvfmla By: SYSTEM SYSTEM on 51-07-5516Dlobxybrv Ql (U)NegativeNormalNegativemg/dLHILLCREST H[facility] UA Auto SSClarity (U) Clear (09/28/23 7:35 PM)NormalClearFTMC UA Auto SSColor (U)Colorless 1 *ABN* (09/28/23 7:35 PM)Invalid Interpretation CodeYellowHILLCREST HOSPITAL CLAREMORE – [facility] UA Auto SSComment on above:Interpretive Data: Microscopic readings are only performed on those samples that meet specific criteria set forth by [facility].Glucose Ql (U)NegativeNormalNegativemg/dLFT UA Auto SSHemoglobin Auto test strip (U) [Mass/Vol]NegativeNormalNegativemg/dLFT UA Auto SSKetones Auto test strip Ql (U)NegativeNormalNegativemg/dLFT UA Auto SSLeukocyte esterase Auto test strip Ql (U)NegativeNormalNegativeLeu/uLFT UA Auto SS Nitrite Auto test strip Ql (U)NegativeNormalNegativemg/dLFT UA Auto SSpH (U) 7.0 *NA* (09/28/23 7:35 PM)Invalid Interpretation Code5.0 - 9.0[facility] UA Auto SSProtein Ql (U)NegativeNormalNegativemg/dLHILLCREST HOSPITAL [facility] UA Auto SSSpecific gravity (U) [Rel density] 1.003 *NA* (09/28/23 7:35 PM)Invalid Interpretation Code1.005 - 1.030[facility] UA Auto SS Urobilinogen (U) [Mass/Vol]NegativeNormalNegativemg/dLHILLCREST HOSPITAL [facility] UA Auto SSURINALYSIS Ordered By: Bijan Miramontes on 48-18-7799BV Spec DescClean Catch (09/28/23 7:35 PM)NormalHILLCREST HOSPITAL CLAREM[facility] – [facility] UA Auto SS egFRon 38-39-5935wXYN04 mL/min/1.73 u0Bcfsvd>=59Fisher [facility] HospitalComment on above:Order Comment: Order added by Discern Expert.Performed By: #### [id number] #### [facility] [address] [place], [place] [address]Qlvzlgfoke Visit Summaryon 10-63-6684Qysstnmaii Visit Summary SANNA RENDON :1985 Visit Date:08/03/2023 [...] (Vitamin D) fluticasone nasal (Flonase 0.05 mg/inh Medina) metformin (MetFORMIN (Eqv-Glucophage XR) 500 mg oral [...] PED When: In 4 months Where: [address] [place] [address]- You Need to Complete the Following HgbA1c, [...] Unchanged fluticasone nasal (Flonase 0.05 mg/ inh Medina) 2 Sprays Nasal Inhalation Every day each [...] ? Walking a mile (more content not included)...[facility] Medicine Office/Clinic Noteon 46-46-5234Owmzfe Medicine Office/Clinic NoteChief Complaint Wants to discuss [...] comfortable with plan. PNMV Ordered: A1c POC 94299 Total time spent preparing the chart, conducting [...] FAAFP, FAM, PED In 4 months [address] [facility], [facility] [place] [address]- Additional Instructions: Patient Education Exercising to Lose Weight Problem Lis (more content not included)...[facility] Comment on above:Result Comment: Electronically Signed By: Penelope CASAS DO, FAAFP\.br\Date and Time Signed: 08/03/23 12:19 EDTPSaint Joseph Berea 08-03-2023 Patient EducationPhysical Medicine and Rehabilitation Exercising [...] your health care provider or diet and director of food and nutrition services (dietitian). This may include: ? Eating fewer [...] regular exercise is e (more content not included)...[facility] HospitalPatient Educationon 83-09-4239Kockbic EducationEndocrinology Blood Glucose Monitoring, Adult Monitoring your [...] meter by following in (more content not included)...[facility] HospitalLab Reportson 20-06-8103Ykh Reports [id number]#1.00[facility] HospitalConsultation Noteon 18-73-1920Hxoiuzxcoihd Note [id number]#1.00[facility] HospitalAmbulatory Visit Summaryon 55-54-3743Ypkfvseria Visit Summary SANNA RENDON :1985 Visit Date:05/25/2023 [...] EDT With: Penelope CASAS DO, FAAFP [facility] Office/Clinic Noteon 71-65-6555Bgumkj Medicine Office/Clinic NoteChief Complaint States she is [...] Benadryl. 2. Dyshidrotic eczema (L30.1: Dyshidrosis [pompholyx]) Gmhq-xzn-rwfpbrx hydrocortisone cream 1% or 2.5% as directed. [...] FAAFP, FAM, PED In 2 months [address] [facility], [place] [address]- Additional Instructions: Patient Education Eustachian Tube Dysfunction Dyshidrotic Eczema Allergies, Tadeo (more content not included)...[facility] Comment on above:Result Comment: Electronically [...] ears completely after. General instructions ? Take gvay-zrv-bzzugbo and prescription medicines only as told by [...] cases are treated w (more content not included)...[facility] Urineon 06-83-3325Wipczjmf identified Cx Nom (U) Microbiology PROCEDURE: Urine Culture [R1] SOURCE: U Random BODY SITE: COLLECTED DATE/TIME: 05/01/2023 18:00 EST RECEIVED DATE/TIME: 05/01/2023 18:08 EST START DATE/TIME: 05/01/2023 18:08 EST FREE TEXT SOURCE: Penelope CASAS DO, FAAFP, DO, FAAFP, Penelope Tony FINAL REPORTS Final Report [] Verified Date/Time: 05/03/2023 07:00 EST <10,000 cfu/ml Mixed skin contaminants Performing Locations R1: This test was performed at: [facility], [address] [place] [address], [address]- , [place], MikxxtGjoturSelect Medical TriHealth Rehabilitation HospitalComment on above:Performed By: #### [id number] ####[address] [address]Bzswfbq for Treatmenton 03-09-2322Fjndbmh for Treatment [id number] North HospitalUrinalysison 67-17-3049Pppnwtmi LM Ql (Urine sed)TRACENormalTraceSheltering Arms HospitalComment on above:Performed By: #### [id number] ####[address] [address]Eoxbcvzpi Ql (U) NegativeNormalNegativeSheltering Arms HospitalComment on above:Performed By: #### [id number] ####[address] [address]Czgwuhz (U)CLOUDYAbnormalClearFCincinnati Children's Hospital Medical CenterComment on above:Performed By: #### [id number] ####[address] [address]Twdcq (U)YELLOWNormalYellowSheltering Arms HospitalComment on above:Performed By: #### [id number] ####[address] [address]Kcdkkcrrbr cells.squamous LM.HPF (Urine sed) [#/Area]/[HPF]Normal0-2FCincinnati Children's Hospital Medical CenterComment on above:Performed By: #### [id number] ####[address] [address]Ymutchd Test strip (U) [Mass/Vol]NegativeNormal NegativeSheltering Arms HospitalComment on above:Performed By: #### [id number] ####[address] [address] Hemoglobin Ql (U)NegativermalNegFlower HospitalComment on above:Performed By: #### [id number] ####[address] [address]Wyvlyyj (U) [Mass/Vol]NegativeNormalNegativeSheltering Arms HospitalComment on above:Performed By: #### [id number] ####[address] [address] Florin.plasma/Florin.RBC (Bld) [Mass ratio]6-2Lcuqnn8-6Gfwyal [facility] HospitalComment on above:Performed By: #### [id number] ####[address] [address]Vpbaevw Ql (U)NegativeNormal [place] [facility] HospitalComment on above:Performed By: #### [id number] ####[address] [address]wY (U)6.0 [pH]Invalid Interpretation Code5.0-9.0S[facility] HospitalComment on above:Performed By: #### [id number] ####[address] [address]Pafqkty (U) [Mass/Vol]NegativeNormal NegativeSheltering Arms HospitalComment on above:Performed By: #### [id number] ####[address] [address] Specific gravity (U) [Rel density]<=1.005Invalid Interpretation Code1.005-1.030 [facility] HospitalComment on above:Performed By: #### [id number] ####[address] [address]Lzzm of Urine collection methodClean CatchNormalSheltering Arms HospitalComment on above:Performed By: #### [id number] ####[address]or[place], [place] [address]Lmibtbdwlahg Qn (U)0.2 {Nicole'U}/dLNormal0.0-1.0 [facility] HospitalComment on above:Performed By: #### [id number] ####[facility] [address] [place], [place] [address]KPL Auto Ql (U)TRACEAbnormalNegativeSheltering Arms HospitalComment on above: Performed By: #### [id number] ####[facility] [address] [place], [place] [address]NXG LM.HPF (Urine sed) [#/Area]9-1Htzmdl6-0Kjfwde [facility] HospitalComment on above:Performed By: #### [id number] ####[facility] [address] [place], [place] [address]Rzkegkszcv Visit Summaryon 64-88-9398Pnvgesanhl Visit Summary SANNA RENDON :1985 Visit Date:04/27/2023 [...] EST With: Penelope CASAS DO, FAAFP [facility] CareNoSelect [facility] CHEMISTRYOrdered By: SYSTEM SYSTEM on 80-13-2149ZJK Qn4.04 m[IU]/LNormal0.34 - 5.60 mcIU/mLRemisol ChemMercy Medical Center Medicine Office/Clinic Noteon 31-38-4759Udqxaz Medicine Office/Clinic NoteChief Complaint Since last Sunday [...] feeding. No loss of taste nor smell. [id number] while taking Glucophage XR 500 mg p.o. [...] Push fluids and Tylenol and or ibuprofen clmx-yxt-abxekom as directed. Patient does not appear ill [...] Your BMIand weight manag (more content not included)...[facility] HospitalComment on above: Result Comment: Electronically Signed By: PRAVEEN RESENDEZ FAAFP, Penelope Tony\.br\Date and Time Signed: 04/27/23 12:53 ESTPatient Educationon 59-61-3304Qjihbsh Education Endocrinology Diabetes Mellitus and Exercise Exercising [...] plan? Your health care provider or certified alcohol and drug counselor can help you make a plan [...] stroke). Where to find more information ? [place] [employer]: www.diabetes.org Summary ? Exercising regularly is important for overall health, especially for people who have diabetes mellitus. ? Exercising has many health benefits. It increases muscle strength and bone density and reduces body fat and stress. It also lowers and controls blood glucose. ? Your health care provider or certified alcohol and drug counselor can help you make an activity [...] provider. Document Revised: 01/12/2020 Document Reviewed: 01/12/2020 ElseEdmodo Patient Education ? 2022 [employer] Preventing Hypoglycemia Hypoglycemia occurs when the level of sugar (glucose) in the blood is too low. Hypoglycemia can happen in people who do or do not have diabetes (diabetes (more content not included)...NormalSheltering Arms HospitalTSHon 03-72-2947OYQ Qn 4.04 m[IU]/LNormal0.34-5.60S[facility] HospitalComment on above:Performed By: #### [id number] ####Braulio [facility] [address] [place], [place] [address]Nlephiokve Visit Summaryon 23-44-7677Uasdlwzbue Visit Summary SANNA RENDON :1985 Visit Date:02/15/2023 [...] PED When: In 2 months Where: [address] [place] [address]- You Need to Complete the Following HgbA1c, [...] miscarriage Suspected COVID-19 virus infection Vaginal tabitha [facility] Medicine Office/Clinic Noteon 54-02-4317Pxdwyd Medicine Office/Clinic NoteChief Complaint States since Sunday her right ear is draining and is a little painful History of Present Illness Naturopath draining since Sunday evening and a little [...] pain of ear shake well before using, [facility] 1985, 168, cm, 02/15/23 9:49:00EDT, [...] in , unspecified control) Followed per her blender / cook. She is continuing 500 mg of metformin [...] Contact Information PRAVEEN Johnson (more content not included)...[facility] HospitalComment on above:Result Comment: Electronically Signed [...] cannot use soap and water, use [employer]. 2. Make sure your ears are clean [...] cannot use soap and water, use [employer]. Follow these instructions at home: ? Use [...] Reviewed: 02/11/2020 Elsevier Patient Education ? 2022 [employer] Infectious Disease Otitis Externa Otitis externa [...] you start to feel better. ? Take wkmo-kzd-jredtmj and prescription medicines only as told by your doctor. ? Avoid getting water in your ears as told by your doctor. You may be told to avoid swimming or water sports for a few days. ? Keep all follow-up visits. How is this prevented? ? Keep your ears dry. Use the corner o (more content not included)...Normal [facility] HospitalPatient Educationon 46-39-9039Zukqpje Education Immunology Fatigue If you have fatigue, [...] these instructions at home: Medicines ? Take bopr-why-wpgsdat and prescription medicines only as told by [...] the National Suicide Prevention Lifeline at or 366. This is open 24 hours a day. ? Text the Crisis Text Line at 479147. Summary ? If you have fatigue, you [...] provider. Document Revised: 02/06/2022 Document Reviewed: 02/06/2022 [employer] Patient Education ? 2022 [employer] Urology Urodynamic Testing Urodynamic tests are [...] ? Leaking urine (inco (more content not included)...NormalSheltering Arms HospitalCHEMISTRYOrdered By: SYSTEM SYSTEM on 86-02-7671Vbfz T4 [Mass/Vol]0.58 ng/dLNormal0.58 - 1.64 ng/dLFTMC RemisolTSH Qn3.35 m[IU]/LNormal0.34 - 5.60 mcIU/mLFTMC RemisolAlbumin [Mass/Vol]4.5 g/dLNormal3.3 - 5.0 gm/dLFTMC Remisol Albumin/Globulin [Mass ratio]1.4 {ratio}Normal1.1 - 2.2FTMC RemisolALP [Catalytic activity/Vol]62 [iU]/rSiutoz50 - 98 Int._Unit/LFTMC RemisolALT No additional P-5'-P [Catalytic activity/Vol]27 [iU]/dNormal6 - 46 Int._Unit/LFTMC RemisolAnion gap [Moles/Vol]13 mmol/LNormal6 - 16 mEq/LFTMC RemisolAST [Catalytic activity/Vol]21 [iU]/dNormal5 - 43 Int._Unit/LFTMC RemisolBilirubin [Mass/Vol]0.3 mg/dLNormal0.0 - 1.1 mg/dLFTMC RemisolCalcium [Mass/Vol]9.6 mg/dL Normal8.9 - 11.1 mg/dLFTMC RemisolChloride [Moles/Vol]104 mmol/BWvqjme452 - 111 mmol/LFTMC RemisolCO2 [Moles/Vol]25 mmol/LXwoeeg22 - 31 mmol/LFTMC Remisol Cobalamin (Vitamin B12) [Mass/Vol]211 pg/zXEtvslu97 - 1500 pg/mLFTMC Remisol Creatinine [Mass/Vol]0.9 mg/dLNormal0.5 - 1.3 mg/dLFTMC RemisolFerritin [Mass/Vol]38 ng/jYQymuto95 - 307 ng/mLFTMC RemisolFolate [Mass/Vol]13.5 ng/mL Normal>=6.7ng/mLFTMC RemisolGFR/1.73 sq M.predicted among non-blacks MDRD (S/P/Bld) [Vol rate/Area]85 mL/min/1.73 y4Nnqitf>=59mL/min/1.73 m2FTMC Chem S Globulin (S) [Mass/Vol]3.3 g/dLNormal1.4 - 4.0 gm/dLFTMC RemisolGlucose [Mass/Vol]93 mg/yDLtmlpg34 - 199 mg/dLFTMC RemisolIron [Mass/Vol]56 ug/dLNormal 35 - 153 mcg/dLFTMC RemisolIron binding capacity [Mass/Vol]395 ug/uIJijbtm054 - 400 mcg/dLFTMC RemisolPotassium [Moles/Vol]3.7 mmol/LNormal3.5 - 5.3 mmol/LFTMC RemisolProtein [Mass/Vol]7.8 g/dLNormal6.0 - 7.8 gm/dLFTMC RemisolSodium [Moles/Vol]138 mmol/JUxigdd842 - 145 mmol/LFTMC RemisolTransferrin [Mass/Vol]282 mg/qMTcxist042 - 370 mg/dLFTMC RemisolUrea nitrogen [Mass/Vol]11 mg/dLNormal5 - 21 mg/dLFT[facility] RemisolUrea nitrogen/Creatinine [Mass ratio]12 mg/cpAcsfbx69 - 20 [facility] RemisolHEMATOLOGYOrdered By: SYSTEM SYSTEM on 06-85-6534Mpdlhbtbc/100 WBC (Bld)0.6 %Normal0.0 - 2.0 %[facility] HemeAutoSSBasophils/Leukocytes Auto (Bld) [Pure # fraction]0.0 E9/LNormal0.0 - 0.2 E9/LFTMC HemeAutoSSEosinophils/100 WBC (Bld) 1.1 %Normal0.0 - 8.0 %[facility] HemeAutoSSEosinophils/Leukocytes Auto (Bld) [Pure # fraction]0.1 E9/LNormal0.0 - 0.5 E9/LFTMC HemeAutoSSLymphocytes/100 WBC (Bld) 42.4 %Rpvvdj52.0 - 50.0 %[facility] HemeAutoSSLymphocytes/Leukocytes Auto (Bld) [Pure # fraction]3.4 E9/LNormal1.0 - 4.0 E9/LFTMC HemeAutoSSMonocytes/100 WBC (Bld)8.0 %Normal4.0 - 14.0 %[facility] HemeAutoSSMonocytes/Leukocytes Auto (Bld) [Pure # fraction]0.6 E9/LNormal0.2 - 1.0 E9/LFT[facility] HemeAutoSSNeutrophils/100 WBC (Bld) 47.9 %Nrzkdb85.0 - 75.0 %[facility] HemeAutoSSNeutrophils/Leukocytes Auto (Bld) [Pure # fraction]3.8 E9/LNormal2.0 - 7.5 E9/LFTMC HemeAutoSSHEMATOLOGYOrdered By: Trena Castro on 80-47-0735Cndgmddrmjd distribution width (RBC) [Ratio]14.5 % High10.9 - 14.2 %[facility] HemeAutoSSHematocrit (Bld) [Volume fraction]37.4 %Normal 34.0 - 46.0 %[facility] HemeAutoSSHemoglobin (Bld) [Mass/Vol]13.1 g/fAYnysaa15.0 - 16.0 gm/dLFTMC HemeAutoSSMCH (RBC) [Entitic mass]30.6 jtQxtovj75.0 - 34.0 pgFTMC HemeAutoSSMCHC (RBC) [Mass/Vol]34.9 g/kWCrenof35.4 - 36.0 gm/dLFTMC HemeAutoSS MCV (RBC) [Entitic vol]87.7 eYNbzygc38.0 - 100.0 fLFTMC HemeAutoSSPlatelet mean volume (Bld) [Entitic vol]8.2 fLNormal6.4 - 10.8 fLFTMC HemeAutoSSPlatelets (Bld) [#/Vol]334.0 E9/CMbftqs451.0 - 500.0 E9/LFTMC HemeAutoSSRBC (Bld) [#/Vol] 4.3 E12/LNormal4.3 - 5.9 E12/LFT[facility] HemeAutoSSWBC corrected for nucl RBC Auto (Bld) [#/Vol]7.9 E9/LNormal4.0 - 11.0 E9/LFT[facility] HemeAutoSSCHEMISTRYOrdered By: SYSTEM SYSTEM on 23-74-9496Yqml T4 [Mass/Vol]0.58 ng/dLNormal0.58 - 1.64 ng/dL [facility] RemisolTSH Qn3.10 m[IU]/LNormal0.34 - 5.60 mcIU/mLFTMC RemisolCHEMISTRY Ordered By: Valeri German on 33-31-4358JgQ6n (Bld) [Mass fraction]5.9 %Normal <=5.9%[facility] ChemAutoSSCHEMISTRYOrdered By: SYSTEM SYSTEM on 75-09-3643Mabm T4 [Mass/Vol]0.71 ng/dLNormal0.58 - 1.64 ng/dLFTMC RemisolTSH Qn3.77 m[IU]/LNormal 0.34 - 5.60 mcIU/mLFTMC RemisolCBC AUTO DIFFon 03-10-4690GXQE #0.0 103/ulNormal 0.0-0.1The [facility] HospitalComment on above:Performed By: #### HIV12 #### [facility] [address] [address] [address] Edward iGllBasophils/100 WBC (Bld)0.4 %Normal0.2-2.0The [facility] Comment on above:Performed By: #### HIV12 #### [facility] [address] [address] [address] Edward Traore #0.1 103/ulNormal0.0-0.7The [facility] HospitalComment on above: Performed By: #### HIV12 #### [facility] [address] [address] [address] Edward Calhounosinophils/100 WBC (Bld)1.3 %Normal0.9-7.0The [facility] Comment on above:Performed By: #### HIV12 #### [facility] [address] [address] [address] Edward Calhounrythrocyte distribution width (RBC) [Ratio]16.6 %Critically high 11.0-15.0The [facility] HospitalComment on above:Performed By: #### HIV12 #### [facility] [address] [address] [address] Edward GillHematocrit (Bld) [Volume fraction]30.2 %Critically low36.0-48.0 The [facility] HospitalComment on above:Performed By: #### HIV12 #### [facility] [address] [address] [address] Edward GillHemoglobin (Bld) [Mass/Vol]10.5 g/dLCritically low12.0-16.0The [facility] HospitalComment on above:Performed By: #### HIV12 #### [facility] [address] [place] [address] Dr. Edward Ray #0.04 10e3/ulCritically high0.00-0.03The [facility] Comment on above:Performed By: #### HIV12 #### [facility] [address] [place] [address] Dr. Edward Ray %0.4 %Normal0.0-0.5The [facility] HospitalComment on above: Performed By: #### HIV12 #### [facility] [address] [place] [address] Dr. Edward Velásquez #3.1 103/ulNormal1.2-3.8The [facility] HospitalComment on above:Performed By: #### HIV12 #### [facility] [address] [place] [address] Dr. Edward Alvaerzhocytes/100 WBC (Bld)34.2 %Hopcbg40.5-60.0White HospitalComment on above:Performed By: #### HIV12 #### [facility] [address] [place] [address] Dr. Edward SimmonsUAL DIFF REQNONormalThe [facility] HospitalComment on above: Performed By: #### HIV12 #### [facility] [address] [place] [address] Dr. Edward June (RBC) [Entitic mass]30.3 puOjwmee48.7-34.0The [facility] HospitalComment on above:Performed By: #### HIV12 #### [facility] [address] [place] [address] Dr. Edward June (RBC) [Mass/Vol]34.8 g/kOBbmyks37.9-35.2The [facility] HospitalComment on above:Performed By: #### HIV12 #### [facility] [address] [place] [address] Dr. Edward Desai (RBC) [Entitic vol]87.0 cMOqybna65.0-99.0The [facility] HospitalComment on above:Performed By: #### HIV12 #### [facility] [address] [place] [address] Dr. Edward Rosas #0.7 103/ulNormal0.3-0.8The [facility] HospitalComment on above:Performed By: #### HIV12 #### [facility] [address] [place] [address] Dr. Edward Ignacioocytes/100 WBC (Bld)7.5 %Normal1.7-12.0The [facility] Comment on above:Performed By: #### HIV12 #### [facility] [address] [place] [address] Dr. Edward Guevara #5.0 103/ulNormal1.4-6.5The [facility] HospitalComment on above:Performed By: #### HIV12 #### [facility] [address] [place] [address] Dr. Edward Moralesutrophils/100 WBC (Bld)56.2 %Ahoskn85.0-75.0The [facility] HospitalComment on above:Performed By: #### HIV12 #### [facility] [address] [place] [address] Dr. Edward Serranolet mean volume (Bld) [Entitic vol]9.8 fLNormal9.5-13.5The [facility] HospitalComment on above:Performed By: #### HIV12 #### [facility] [address] [place] [address] Dr. Edward GillPLT238 103/vcLqxeae862-507Vun [facility] HospitalComment on above: Performed By: #### HIV12 #### [facility] [address] [place] [address] Dr. Edward GillRBC3.47 106/ulCritically low4.20-5.40The [facility] HospitalComment on above:Performed By: #### HIV12 #### [facility] [address] [place] [address] Dr. Edward GillWBC9.0 103/ulNormal4.0-11.0The [facility] HospitalComment on above: Performed By: #### HIV12 #### [facility] [address] [place] [address] Dr. Edward GillFETAL SCREENon 61-28-0660UBILK SCREENNegativeOhioHealth Grady Memorial HospitalComment on above:Performed By: #### FETSCRN #### [facility] [address] [place] [address] Dr. Edward GillDIRECT COOMBSon 21-05-8184XMJWBB COOMBSNegCleveland Clinic Mercy HospitalComment on above:Performed By: #### DIRCMB #### [facility] [address] [place] [address] Dr. Edward GillPOINT OF CARE GLUCOSEon 78-07-1447Zypuuji [Mass/Vol]117 mg/dL Critically ouok28-507Nas [facility] HospitalComment on above:Performed By: #### POCGLUC ####[facility] [address] [place], [place] [address]Dr. Edward GillTYPE AND SCREENon 72-19-1010IJFH AND SCREENNegativeOhioHealth Grady Memorial HospitalComment on above:Performed By: #### TNS #### [facility] [address] [place] [address] Dr. Edward GillCBC AUTO DIFFon 42-52-2540DYEM #0.0 103/ulNormal0.0-0.1The [facility] HospitalComment on above:Performed By: #### HIV12 #### [facility] [address] [place] [address] Dr. Edward GillBasophils/100 WBC (Bld)0.2 %Normal0.2-2.0The [facility] Comment on above:Performed By: #### HIV12 #### [facility] [address] [place] [address] Dr. Edward Traore #0.0 103/ulNormal0.0-0.7The [facility] HospitalComment on above: Performed By: #### HIV12 #### [facility] [address] [place] [address] Dr. Edward Calhounosinophils/100 WBC (Bld)0.5 %Critically low0.9-7.0The [facility] HospitalComment on above:Performed By: #### HIV12 #### [facility] [address] [place] [address] Dr. Edward Calhounrythrocyte distribution width (RBC) [Ratio]16.1 %Critically high 11.0-15.0The [facility] HospitalComment on above:Performed By: #### HIV12 #### [facility] [address] [place] [address] Dr. Edward GillHematocrit (Bld) [Volume fraction]32.1 %Critically low36.0-48.0 The [facility] HospitalComment on above:Performed By: #### HIV12 #### [facility] [address] [place] [address] Dr. Edward GillHemoglobin (Bld) [Mass/Vol]11.7 g/dLCritically low12.0-16.0The [facility] HospitalComment on above:Performed By: #### HIV12 #### [facility] [address] [place] [address] Dr. Edward Ray #0.04 10e3/ulCritically high0.00-0.03The [facility] Comment on above:Performed By: #### HIV12 #### [facility] [address] [place] [address] Dr. Edward Ray %0.5 %Normal0.0-0.5The [facility] HospitalComment on above: Performed By: #### HIV12 #### [facility] [address] [place] [address] Dr. Edward Velásquez #2.4 103/ulNormal1.2-3.8The [facility] HospitalComment on above:Performed By: #### HIV12 #### [facility] [address] [place] [address] Dr. Edward Ronmphocytes/100 WBC (Bld)27.2 %Kiqykp81.5-60.0The [facility] HospitalComment on above:Performed By: #### HIV12 #### [facility] [address] [place] [address] Dr. Edward SimmonsUAL DIFF REQNONormalThe [facility] HospitalComment on above: Performed By: #### HIV12 #### [facility] [address] [place] [address] Dr. Edward De Leon (RBC) [Entitic mass]30.0 zjDsurod34.7-34.0The [facility] HospitalComment on above:Performed By: #### HIV12 #### [facility] [address] [place] [address] Dr. Edward June (RBC) [Mass/Vol]36.4 g/dLCritically high29.9-35.2The [facility] HospitalComment on above:Performed By: #### HIV12 #### [facility] [address] [place] [address] Dr. Edward Desai (RBC) [Entitic vol]82.3 iLPfghmr35.0-99.0The [facility] HospitalComment on above:Performed By: #### HIV12 #### [facility] [address] [place] [address] Dr. Edward Rosas #0.7 103/ulNormal0.3-0.8The [facility] HospitalComment on above:Performed By: #### HIV12 #### [facility] [address] [place] [address] Dr. Edward Ignacioocytes/100 WBC (Bld)7.7 %Normal1.7-12.0The [facility] Comment on above:Performed By: #### HIV12 #### [facility] [address] [place] [address] Dr. Yilan ChangNEUT #5.5 103/ulNormal1.4-6.5The [facility] HospitalComment on above:Performed By: #### HIV12 #### [facility] [address] [place] [address] Dr. Edward Moralesutrophils/100 WBC (Bld)63.9 %Ujdnhi20.0-75.0The [facility] HospitalComment on above:Performed By: #### HIV12 #### [facility] [address] [place] [address] Dr. Edward GillPlatelet mean volume (Bld) [Entitic vol]10.0 fLNormal9.5-13.5The [facility] HospitalComment on above:Performed By: #### HIV12 #### [facility] [address] [place] [address] Dr. Edward GillPLT274 103/jaMzolrd345-563Cta [facility] HospitalComment on above: Performed By: #### HIV12 #### [facility] [address] [place] [address] Dr. Edward GillRBC3.90 106/ulCritically low4.20-5.40The [facility] HospitalComment on above:Performed By: #### HIV12 #### [facility] [address] [place] [address] Dr. Edward GillWBC8.7 103/ulNormal4.0-11.0The [facility] HospitalComment on above: Performed By: #### HIV12 #### [facility] [address] [place] [address] Dr. Edward GillCovid-19 PCR (CVDMIRAVISTA [facility])on 74-15-7043YIWH-CoV-2 (COVID-19) RNA LELO+probe Ql (Unsp spec)Not detectedNormalNOT DETECTEDThe [facility] Comment on above:Result Comment: When [...] for this test is supported by the Supervisor [employer] of Health and Human Service's declaration that [...] longer be used).Performed By: #### HIV12 #### [facility] [address] [address] [address] Edward GillDRUG SCREEN RAPID (URINE)on 49-24-8945ROVDgpxfjilFencdyHHJMKEAH White HospitalComment on above:Performed By: #### DRUGRPD ####[facility] [address] [address]. Edward GillBAR NegativeNormalNEGATIVEGenesis Hospital HospitalComment on above:Performed By: #### DRUGRPD ####[facility] [address] [address]Dr. Edward GillBUPNegativeNormalNEGATIVEWhite HospitalComment on above:Performed By: #### DRUGRPD ####[facility] [address] [address]Dr. Edward GillBZONegativeNormalNEGATIVEWhite HospitalComment on above:Performed By: #### DRUGRPD ####[facility] [address] [address]Dr. Edward GillCOCNegative NormalNEGATIVEWhite HospitalComment on above:Performed By: #### DRUGRPD ####[facility] [address] [place], [place] [address]Dr. Edward GillCUT-OFFSSEE BELOWOhioHealth Grady Memorial HospitalComment on above:Result Comment: AMP (Amphetamine): 500ng/mL, BAR (Barbituates): 200 ng/mL, BZO (Benzodiazepines): 150 ng/mL, BUP (Buprenorphine): 10 ng/mL, INDIA (Cocaine): 150 ng/mL, mAMP (Methamphetamine): 500 ng/mL, MTD (Methadone): 200 ng/mL, OPI (Opiates): 100 ng/mL, OXY (Oxycodone): 100 ng/mL, PCP (Phencyclidine): 25 ng/mL, PPX (Propoxyphene): 300 ng/mL, THC (Cannabinoids): 50 ng/mL, TCA (Trycyclic Antidepressants): 300 ng/mLPerformed By: #### DRUGRPD ####[facility] [address] [place], [place] [address]Dr. Edward ChangDRUG CUT HEADERDRUG CLASS TEST SYSTEM CUT-OFF CONCENTRATIONS ARE FOLLOWS:NormalThe [facility]bury HospitalComment on above:Performed By: #### DRUGRPD ####[facility] [address] [place], [place] [address]Dr. Edward ChangmAMP NegativeNormalNEGATIVEGenesis Hospital HospitalComment on above:Performed By: #### DRUGRPD ####[facility] [address] [place], [place] [address]Dr. Yilan ChangMTDNegativeNormalNEGATIVEGenesis Hospital HospitalComment on above:Performed By: #### DRUGRPD ####[facility] [address] [place], [place] [address]Dr. Yilan ChangOPINegativeNormalNEGATIVEGenesis Hospital HospitalComment on above:Performed By: #### DRUGRPD ####[facility] [address] [place], [place] [address]Dr. Yilan ChangOXYNegative NormalNEGATIVEGenesis Hospital HospitalComment on above:Performed By: #### DRUGRPD ####[facility] [address] [place], [place] [address]Dr. Yilan ChangPCPNegativeNormalNEGATIVEGenesis Hospital HospitalComment on above: Performed By: #### DRUGRPD ####[facility] [address] [place], [place] [address]Dr. Yilan ChangPPXNegativeNormalNEGATIVEGenesis Hospital HospitalComment on above:Performed By: #### DRUGRPD ####[facility] [address] [address]Dr. Edward GillTCANegative NormalNEGATIVEWhite HospitalComment on above:Performed By: #### DRUGRPD ####[facility] [address] [address]Dr. Edward GillTHCNegativeNormalNEGATIVEWhite HospitalComment on above: Performed By: #### DRUGRPD ####[facility] [address] [address]Dr. Edward Sherwood PREG BIOPHY W NON STRESSon 29-40-0872EQ PREG BIOPHY W NON STRESSEXAMINATION: US PREG [...] Electronically authenticated by: HUMERA KIM Date: 2022-05-06 19:05[facility] PREG BIOPHY W NON STRESSon 62-43-2701MN PREG BIOPHY W NON STRESSEXAMINATION: US PREG [...] Tetracycline >=16 R F Vancomycin =0.5 S FNormalWhite HospitalComment on above:Performed By: #### GBSCX ####[facility] [address] [place], [place] [address]Ht. Edward GillUS PREG BIOPHY W NON STRESSon 75-16-3009ZI PREG BIOPHY W NON STRESSEXAMINATION: US PREG [...] Electronically authenticated by: HUMERA KIM Date: 2022-04-17 17:[address] [place] [address] PREG GROWTHon 10-06-8830LB PREG GROWTHEXAMINATION: US PREG GROWTH HISTORY: Gestational [...] Electronically authenticated by: HUMERA KIM Date: 2022-04-17 16:49[facility] PREG BIOPHY W NON STRESSon 36-46-0664MA PREG BIOPHY W NON STRESSEXAMINATION: US PREG [...] Electronically authenticated by: HUMERA KIM Date: 2022-04-12 08:56[facility] HospitalGLUCOSE, BLOOD (POC)on 73-95-1339Wajrycl [Mass/Vol]106 mg/dL Estfanvh04 - 99 mg/dLUC Medical Center PREG BIOPHY W NON STRESSon 28-11-5671CN PREG BIOPHY W NON STRESSEXAMINATION: US PREG [...] Electronically authenticated by: HUMERA KIM Date: 2022-04-01 16:08[facility] PREG BIOPHY W NON STRESSon 45-68-2383RL PREG BIOPHY W NON STRESSEXAMINATION: US PREG [...] Electronically authenticated by: HUMERA KIM Date: 2022-03-27 08:54NoParkview Health Montpelier HospitalUS PREG GROWTHon 26-59-0124DI PREG GROWTHEXAMINATION: US PREG GROWTH HISTORY: Maternal [...] Electronically authenticated by: HUMERA KIM Date: 2022-03-17 06:04[facility] HospitalTSHon 45-54-1195CPS9.586 uIU/mLNormal0.358-3.740The [facility] HospitalComment on above:Performed By: #### HIV12 #### [facility] [address] [place] [address] Dr. Edward GillTYPE AND SCREENon 26-20-1548SIZQ AND SCREENNegativeOhioHealth Grady Memorial HospitalComment on above:Performed By: #### TNS #### [facility] [address] [place] [address] Dr. Edward GillPAP ACOG PANEL 2: 30 to 65on 02-21-2022..NormalThe [facility] HospitalComment on above:Result Comment: Performed at: WBPerformed By: #### [id number] ####[facility] [address] [place], [place] [address]DrLazara Koenig Gdln ACOG Ajntngu75-79BsafteXpoTuscarawas Hospital on above:Performed By: #### [id number] ####[facility] [address] [place], [place] [address]Dr. Edward GillDIAGNOSIS:CommentHolzer Hospital on above:Result Comment: NEGATIVE FOR INTRAEPITHELIAL LESION OR MALIGNANCY. Performed at: WBPerformed By: #### [id number] ####[facility] [address] [place], [place] [address]Dr. Edward GillHPV AptimaNegativeNormal NegativeThe [facility] on above:Result Comment: This nucleic acid amplification test detects fourteen high-risk HPV types (16,18,31,33,35,39,45,51,52,56,58,59,66,68) without differentiation. Performed at: =GPerformed By: #### [id number] ####[facility] [address] [place], [place] [address]Dr. Edward GillMethodology:CommentHolzer Hospital on above:Result Comment: This liquid based ThinPrep(R) pap test was screened with the use of an image guided system. Performed at: WBPerformed By: #### [id number] ####[facility] [address] [place], [place] [address]Dr. Edward GillNote:CommentHolzer Hospital on above:Result Comment: The Pap smear is a screening test designed to aid in the detection of premalignant and malignant conditions of the uterine cervix. It is not a diagnostic procedure and should not be used as the sole means of detecting cervical cancer. Both false-positive and false-negative reports do occur. . Performed at: WBPerformed By: #### [id number] ####[facility] [address] [place], [place] [address]Dr. Edward ChangPerformed by:CommentHolzer Hospital on above:Result Comment: Zenaida Diop, [place] (ASCP) Performed at: WBPerformed By: #### [id number] ####[facility] [address] [place], [place] [address]Dr. Edward GillSpecimen adequacy:Comment NormalWhite HospitalComment on above:Result Comment: Satisfactory for evaluation. No endocervical component is identified. Performed at: WBPerformed By: #### [id number] ####[facility] [address] [place], [place] [address]Dr. Edward GillCHLAMYDIA/GONOCOCCUS LELO (SWAB/URINE/PAPon 20-65-6724Tbuqcfxdg trachomatis, NAANegativeNormalNegativeWhite HospitalComment on above:Performed By: #### CT/NGNA ####[facility] [address] [place], [place] [address]Dr. Edward Gill Neisseria gonorrhoeae, NAANegativeNormalNegativeWhite HospitalComment on above:Performed By: #### CT/NGNA ####[facility] [address] [place], [place] [address]Dr. Edward GillVAGINITIS/VAGINOSIS DNA PROBEon 99-83-5828Kgcahxp speciesNegativeNormalNegativeWhite HospitalComment on above:Performed By: #### VAGINT ####[facility] [address] [place], [place] [address]Dr. Edward GillGardnerella vaginalisNegativeNormal NegativeThe [facility] HospitalComment on above:Performed By: #### VAGINT ####[facility] [address] [place], [place] [address]Dr. Edward GillTrichomonas vaginalisNegativeNormalNegativeWhite Hospital Comment on above:Performed By: #### VAGINT ####[facility] [address] [place], [place] [address]Dr. Edward GillTSHon 48-94-4319UWI3.536 uIU/mLNormal0.358-3.740The [facility] HospitalComment on above:Performed By: #### TSH ####[facility] [address] [place], [place] [address]Bx. Edward JairoGLUCOSE - 1HRon 09-73-4099Pmegkvs [Mass/Vol]160 mg/dLCritically high 74-106White HospitalComment on above:Performed By: #### GLU1HR ####[facility] [address] [id number] Edward SepulvedaHon 64-85-1158PAO6.899 uIU/mLNormal0.358-3.740[facility] Hospital Comment on above:Performed By: #### HIV12 #### [facility] [address] [address] [address] dEward Garcia, [facility] 48-46-4067Ejimceewob byUltAdventist Health TillamookComment on above:Performed By: #### AAFPM #### [address] [address] Store Administrative Assistant: Pancho Cano MD [address] [address] Store Administrative Assistant: Yosvany ArriagaSelect Medical Specialty Hospital - YoungstownComment on above:Result Comment: Results for Estimated Due Date: 05 13 22Performed By: #### AAFPM #### [address] [address] Store Administrative Assistant: Pancho Cano MD [facility] [address] [place] [address] Store Administrative Assistant: Danelle ArriagaGeorgetown Behavioral HospitalComment on above:Performed By: #### AAFPM #### [address] [address] Store Administrative Assistant: Pancho Cano MD [facility] [address] [place], [place] [id number] Store Administrative Assistant: Zhang Bledsoe MDGestat Age (exact)15 wks, 2 daysNoMemorial Health SystemComment on above:Performed By: #### AAFPM #### [facility] [address] [place] [address] Store Administrative Assistant: Pancho Cano MD [address] [id number] Store Administrative Assistant: Zhang Bledsoe MDIns Req Matern DiabCity HospitalComment on above:Performed By: #### AAFPM #### [facility] Institutey [address] [address] Store Administrative Assistant: Pancho Cano MD [address] [address] Store Administrative Assistant: Zhang Bldesoe MDInterpretationScreen Bellevue HospitalComment on above:Result Comment: (NOTE) INTERPRETATION: SCREEN NEGATIVE for open spina bifida Neural Tube Defects (NTD) Negative Pre-Test Post-Test Cutoff Neural Tube Defects Risks 1:1030 1:2690 1:250 Comments: The risk of an open neural tube defect is less than the screening cut-off. This test was developed and its performance characteristics determined by [employer]. It has not been cleared or approved by the [place] Food and Drug Administration. This test was performed in a CLIA certified laboratory and is intended for clinical purposes.Performed By: #### AAFPM #### [facility] [address] [address] Store Administrative Assistant: Pancho Cano MD [address] [phone] Store Administrative Assistant: Osmar Arriagaternal Age at Del36.6 yrNewark HospitalComment on above:Performed By: #### AAFPM #### [facility] [address] [address] Store Administrative Assistant: Pancho Cano MD [address] [phone] Store Administrative Assistant: Osmar Arriagakaiser foundation hospital RaceNonblackNoMemorial Health SystemComment on above:Performed By: #### AAFPM #### [facility] [address] [place] [address] Store Administrative Assistant: Pancho Cano MD [facility] [address] [place] [address] Store Administrative Assistant: Osmar Arriagakaiser foundation hospital Unqbfc284.0 lbs.NormalTrumbull Memorial HospitalComment on above:Performed By: #### AAFPM #### [facility] [address] [place] [address] Store Administrative Assistant: Pancho Cano MD [facility] [address] [place] [address] Store Administrative Assistant: BAKARI Arriaga for AFP1.52NormMary Rutan HospitalComment on above:Performed By: #### AAFPM #### [facility] [address] [place] [address] Store Administrative Assistant: Pancho Cano MD [address] [address] Store Administrative Assistant: Zhang Bledsoe MDNumber of FetusesSingletonNoMemorial Health SystemComment on above:Performed By: #### AAFPM #### [facility] [address] [address] Store Administrative Assistant: Pancho Cano MD [facility] [address] [place] [address] Store Administrative Assistant: Smith Arriaga's AFP35 ng/mLNormalTrumbull Memorial HospitalComment on above:Performed By: #### AAFPM #### [facility] [address] [place] [address] Store Administrative Assistant: Pancho Cano MD [facility] [address] [place] [address] Store Administrative Assistant: NIKITA ArriagaCleveland Clinic Lutheran Hospital Comment on above:Performed By: #### AAFPM #### [address] [address] Store Administrative Assistant: Pancho Cano MD [address] [phone] Store Administrative Assistant: Azucena ArriagaSuburban Community Hospital & Brentwood HospitalComment on above:Result Comment: (NOTE) Initial sample Performed by [employer], [address] [place] [id number] www.[employer], Yayo Moncada MD, PHD, Lab. DirectorPerformed By: #### AAFPM #### [address] [address] Store Administrative Assistant: Pancho Cano MD [address] [phone] Store Administrative Assistant: Zhang Bledsoe MDAUniversity of Maryland Rehabilitation & Orthopaedic Institute [id number] [place], [place] [address]Comment on above:Performed By: #### AAFPM #### [address] [address] Store Administrative Assistant: Pancho Cano MD [address] [phone] Store Administrative Assistant: SHIVA ArriagaCleveland Clinic Union Hospital Comment on above:Performed By: #### AAFPM #### [facility] [address] [address] Store Administrative Assistant: Pancho Cano MD [address] [phone] Store Administrative Assistant: Zhang Bledsoe [facility] Comment on above:Performed By: #### AAFPM #### [address] [address] Store Administrative Assistant: Pancho Cano MD [facility] [address] [place] [address] Store Administrative Assistant: SHIVA Arriagaonojeanine EggINFORMATION NOT PROVIDEDNewark HospitalComment on above:Performed By: #### AAFPM #### [facility] [address] [place] [address] Store Administrative Assistant: Pancho Cano MD [facility] [address] [place] [address] Store Administrative Assistant: Zhang Bledsoe MDEstimcobalt rehabilitation (tbi) hospital Due [id number] HospitalComment on above:Performed By: #### AAFPM #### [facility] [address] [address] Store Administrative Assistant: Pancho Cano MD [facility] [address] [place] [address] Store Administrative Assistant: Zhang Bledsoe MDMercy Medical Center HistoryNegativeNewark HospitalComment on above:Performed By: #### AAFPM #### [facility] [address] [place] [address] Store Administrative Assistant: Pancho Cano MD [facility] [address] [place] [address] Store Administrative Assistant: Zhang Bledsoe MDIn Vitro FertalizatINFORMATION NOT PROVIDEDSt. Charles HospitalComment on above:Performed By: #### AAFPM #### [facility] [address] [place] [address] Store Administrative Assistant: Pancho Cano MD [facility] [address] [place] [address] Store Administrative Assistant: Zhang Bledsoe MDOREGON STATE HOSPITAL [id number] HospitalComment on above:Performed By: #### AAFPM #### [facility] [address] [place] [address] Store Administrative Assistant: Pancho Cano MD [facility] [address] [place] [address] Store Administrative Assistant: Zhang Bledsoe MDMaternal [id number] HospitalComment on above:Performed By: #### AAFPM #### [facility] [address] [place] [address] Store Administrative Assistant: Pancho Cano MD [facility] [address] [place] [address] Store Administrative Assistant: Osmar Arriagaternal Esyrle540QomlbiNvfgmNewark HospitalComment on above:Performed By: #### AAFPM #### [facility] [address] [place] [address] Store Administrative Assistant: Pancho Cano MD [facility] [address] [place] [address] Store Administrative Assistant: BAKARI Arriagaonochorionic TwinsMagruder Memorial HospitalComment on above:Performed By: #### AAFPM #### [facility] [address] [place] [address] Store Administrative Assistant: Pancho Cano MD [facility] [address] [place] [address] Store Administrative Assistant: Zhang Bledsoe [facility] DOTHANatient Weight UnitsLBSNewark HospitalComment on above:Performed By: #### AAFPM #### [facility] [address] [place] [address] Store Administrative Assistant: Pancho Cano MD [facility] [address] [place] [address] Store Administrative Assistant: LUIS Arriagaace (Maternal)WHITENewark HospitalComment on above:Performed By: #### AAFPM #### [facility] [address] [place] [address] Store Administrative Assistant: Pancho Cano MD [facility] [address] [place] [address] Store Administrative Assistant: Jay Arriaga SpecimenINFORMATION NOT [facility] Park Medical CenterComment on above:Performed By: #### AAFPM #### [facility] [address] [place] [address] Store Administrative Assistant: Pancho Cano MD [facility] [address] [place] [address] Store Administrative Assistant: Zhang lBedsoe MDValproic/CarbamazepINFORMATION NOT [facility] Medical CenterComment on above:Performed By: #### AAFPM #### [facility] [address] [address] Store Administrative Assistant: Pancho Cano MD [facility] [address] [place] [address] Store Administrative Assistant: JIMENEZ Arriaga Single Marker Scrn, Maternal, Serumon 80-44-2083UrdQfxkwoEncompass Health Rehabilitation Hospital of YorkCarrier Study Non-ProMedicaon 22-42-0351ObsHhffvs[address] [place] [address] MISCELLANEOUS TESTINGon 19-25-1322Zhvm Out ReportFWD TO [facility] [address] [place], [place] [address]Test NameNATERA BALLAD HEALTHMiscellaneouson 70-97-6808Rjpv Out ReportFWD TO [facility] [address] [place], [place] [address]Comment on above:Performed By: #### CMIS #### [facility] [address] [place] [address] Store Administrative Assistant: Pancho Cano MDTest [facility] Wert County HospitalComment on above:Performed By: #### CMIS #### [facility] [address] [place] [address] Store Administrative Assistant: RAJ Choi B SURFACE ANTIGEN SCREENon 46-43-3408EFoYj ScreenNegativeNormalNegativeThe [facility] on above:Performed By: #### HIV12 #### [facility] [address] [place] [address] Dr. Edward FranklinPATITIS C VIRUS AB W/ REFLEX QUANTon 39-71-4030FDT AB<0.1Normal 0.0-0.9The [facility] on above:Performed By: #### HCVPCRR ####[facility] [address] [address]DrLazara GillInterpretation:CommentNormalThe [facility] on above: Result Comment: Negative Not infected with HCV, unless recent infection is suspected or other evidence exists to indicate HCV infection.Performed By: #### HCVPCRR ####[facility] [address] [address]DrLazara GillHIV 1 AND 2 WITH REFLEXon 68-38-5003TIX Screen 4th Generation wRfx Non-ReactiveNormalNon ReactiveThe [facility] on above:Result Comment: HIV Negative HIV-1/HIV-2 antibodies and HIV-1 p24 antigen were NOT detected. There is no laboratory evidence of HIV infection.Performed By: #### HIV12 #### [facility] [address] [place] [address] Dr. Edward GillRPJeanine QUANTon 12-51-6270Gfysa Plasma Reagin, QuantNon-Reactive NormalNonRea<1:1[facility] on above:Result Comment: Please Note: This test does not meet current guidelines for screening and diagnosis of syphilis. This test is intended for following treatment response in patients being treated for syphilis infection. To screen for syphilis infection, a reflex cascade that includes both RPR and a treponema-specific assay should be utilized, such as Treponema pallidum (Syphilis) Screening [facility] (330429) or Rapid Plasma Reagin (RPR) Test With Reflex to Quantitative RPR and Confirmatory Treponema pallidum Antibodies (973634).Performed By: #### RPRQ ####[facility] [address] [address]Dr. Edward OspinaBELLA AB IGG on 68-12-8517Xbskvxz Antibodies, IgG1.02 indexNormalImmune >0.99The [facility] HospitalComment on above:Result Comment: Non-immune <0.90 Equivocal 0.90 - 0.99 Immune >0.99Performed By: #### RUBIGG ####[facility] [address] [address]. Edward AlfaroC AUTO DIFFon 35-11-7264NNZT # 0.0 103/ulNormal0.0-0.1The [facility] HospitalComment on above:Performed By: #### HIV12 #### [facility] [address] [place] [address] Dr. Edward GillBasophils/100 WBC (Bld)0.3 %Normal0.2-2.0[facility] Comment on above:Performed By: #### HIV12 #### [facility] [address] [place] [address] Dr. Edward Traore #0.1 103/ulNormal0.0-0.7The [facility] HospitalComment on above: Performed By: #### HIV12 #### [facility] [address] [place] [address] Dr. Edward Calhounosinophils/100 WBC (Bld)0.6 %Critically low0.9-7.0The [facility] HospitalComment on above:Performed By: #### HIV12 #### [facility] [address] [place] [address] Dr. Edward Calhounrythrocyte distribution width (RBC) [Ratio]14.1 %Zhtvxj75.0-15.0 The [facility] HospitalComment on above:Performed By: #### HIV12 #### [facility] [address] [place] [address] Dr. Edward GillHematocrit (Bld) [Volume fraction]36.2 %Axvqty95.0-48.0The [facility] HospitalComment on above:Performed By: #### HIV12 #### [facility] [address] [place] [address] Dr. Edward GillHemoglobin (Bld) [Mass/Vol]12.5 g/xLOxujct42.0-16.0The [facility] HospitalComment on above:Performed By: #### HIV12 #### [facility] [address] [place] [address] Dr. Edward Ray #0.05 10e3/ulCritically high0.00-0.03The [facility] Comment on above:Performed By: #### HIV12 #### [facility] [address] [place] [address] Dr. Edward Ray %0.4 %Normal0.0-0.5The [facility] HospitalComment on above: Performed By: #### HIV12 #### [facility] [address] [place] [address] Dr. Edward Velásquez #2.7 103/ulNormal1.2-3.8The [facility] HospitalComment on above:Performed By: #### HIV12 #### [facility] [address] [place] [address] Dr. Edward Alvarezhocytes/100 WBC (Bld)23.2 %Niwxim72.5-60.0The [facility] HospitalComment on above:Performed By: #### HIV12 #### [facility] [address] [place] [address] Dr. Edward SimmonsUAL DIFF REQNONormalThe [facility] HospitalComment on above: Performed By: #### HIV12 #### [facility] [address] [place] [address] Dr. Edward June (RBC) [Entitic mass]30.6 xbUvzryn73.7-34.0The [facility] HospitalComment on above:Performed By: #### HIV12 #### [facility] [address] [place] [address] Dr. Edward June (RBC) [Mass/Vol]34.5 g/lQHoqluh65.9-35.2The Piyush HospitalComment on above:Performed By: #### HIV12 #### [facility] [address] [address] [address] Edward JuneV (RBC) [Entitic vol]88.7 iWDiynsv29.0-99.0The [facility] HospitalComment on above:Performed By: #### HIV12 #### [facility] [address] [place] [address] Dr. Edward Rosas #0.7 103/ulNormal0.3-0.8The [facility] HospitalComment on above:Performed By: #### HIV12 #### [facility] [address] [place] [address] Dr. Edward Ignacioocytes/100 WBC (Bld)5.8 %Normal1.7-12.0The [facility] Comment on above:Performed By: #### HIV12 #### [facility] [address] [place] [address] Dr. Edward Guevara #8.0 103/ulCritically high1.4-6.5The [facility] Comment on above:Performed By: #### HIV12 #### [facility] [address] [place] [address] Dr. Edward Moralesutrophils/100 WBC (Bld)69.7 %Djoduz13.0-75.0The [facility] HospitalComment on above:Performed By: #### HIV12 #### [facility] [address] [place] [address] Dr. Edward Serranolet mean volume (Bld) [Entitic vol]9.3 fLCritically low 9.5-13.5ThMemorial HospitalComment on above:Performed By: #### HIV12 #### [facility] [address] [place] [address] Dr. Edward GillPLT338 103/miLikbdu508-505Eyo [facility] HospitalComment on above: Performed By: #### HIV12 #### [facility] [address] [place] [address] Dr. Edward GillRBC4.08 106/ulCritically low4.20-5.40[facility] on above:Performed By: #### HIV12 #### [facility] [address] [address] [address] Edward SaulBC11.4 103/ulCritically high4.0-11.0The [facility] Hospitalment on above:Performed By: #### HIV12 #### [facility] [address] [place] [address] Dr. Edward GillCULTJEYSON URINEon 25-89-8198WQUFAUF URINECulture Observations: LIGHT GROWTH OF MIXED GENITAL MARTHA. NO POTENTIAL PATHOGENS SEEN.NormalThe [facility] St. Anne Hospitalment on above:Performed By: #### URCX #### [facility] [address] [place] [address] Dr. Edward GillGLYCOHEMOGLOBIN A1Con 48-82-8051TCK RECOMMENDATIONSEE BELOWNormal The [facility] HospitalComselect specialty hospital on above:Result Comment: ADA RECOMMENDED LIMIT 4.0 - 6.0 ADA THERAPEUTIC TARGET < 7.0 ACTION SUGGESTED > 7.0Performed By: #### A1C #### [facility] [address] [place] [address] Dr. Edward GillGlucose [Mass/Vol]117 mg/dLNormalThe [facility] HospitalComselect specialty hospital on above:Performed By: #### A1C #### [facility] [address] [place] [address] Dr. Edward GillHbA1c (Bld) [Mass fraction]5.7 %Normal4.5-6.2[facility] on above:Performed By: #### A1C #### [facility] [address] [place] [address] Dr. Edward Nair BOX TEST PT SEND OUTon 63-35-7913CGXW TO REF LAB10/25/2021 [facility] Hospital on above:Performed By: #### HIV12 #### [facility] [address] [place] [address] Dr. Edward GillTSHodru 76-36-3125AOM8.700 uIU/mLNormal0.358-3.740The [facility]bury HospitalComment on above:Performed By: #### TSH ####[facility] [address] [id number] GillTYPE AND SCREEN on 60-95-0823JUWB AND SCREENNegativeHolzer Hospital on above: Performed By: #### TNS ####[facility] [address] [address]Dr.Edward GillUS PREG TVon 91-90-9338FT PREG TV EXAMINATION: US PREG TV HISTORY: [...] Electronically authenticated by: HUMERA KIM Date: 2021-09-23 10:27[facility] HospitalPREG QUANT HCGon 75-51-8158GFD FMTEA6813 mIU/mLNormalWhite HospitalComselect specialty hospital on above:Performed By: #### HIV12 #### [facility] [address] [address] [address] Edward GillHCG RANGESEE BELOWOhioHealth Grady Memorial HospitalComment on above: Result Comment: 5-50 0-1 WEEK 40-300 1-2 WEEKS 100-1,000 2-3 WEEKS 500-6,000 3-4 WEEKS 5,000-200,000 1-2 MONTHS 10,000-100,000 2-3 MONTHS 3,000-50,000 2ND TRIMESTER 1,000-50,000 3RD TRIMESTERPerformed By: #### HIV12 #### [facility] [address] [address] [address] Edward GillCHEMISTRYOrdered By: SYSTEM SYSTEM on 53-60-1424Ejlxy gap [Moles/Vol]15 mmol/LNormal6 - 16 mEq/LFTMC RemisolCalcium [Mass/Vol]9.5 mg/dL Normal8.9 - 11.1 mg/dLFT RemisolChloride [Moles/Vol]102 mmol/ZXsvaae961 - 111 mmol/LFTMC RemisolCO2 [Moles/Vol]22 mmol/WMenrfw80 - 31 mmol/LFTMC Remisol Creatinine [Mass/Vol]0.9 mg/dLNormal0.5 - 1.3 mg/dLFT RemisolGFR/1.73 sq M.predicted among blacks MDRD (S/P/Bld) [Vol rate/Area]mL/min/1.73 a4Gwkcaj >=59mL/min/1.73 m2[facility] SGFR/1.73 sq M.predicted among non-blacks MDRD (S/P/Bld) [Vol rate/Area]mL/min/1.73 d5Gbovtt>=59mL/min/1.73 m2[facility] S Glucose [Mass/Vol]85 mg/mZZehfjl52 - 199 mg/dLFT RemisolPotassium [Moles/Vol] 3.9 mmol/LNormal3.5 - 5.3 mmol/LFTMC RemisolSodium [Moles/Vol]135 mmol/LNormal 135 - 145 mmol/LFTMC RemisolUrea nitrogen [Mass/Vol]6 mg/dLNormal5 - 21 mg/dL [facility] RemisolUrea nitrogen/Creatinine [Mass ratio]7 mg/mgLow10 - 20FT Remisol HEMATOLOGYOrdered By: SYSTEM SYSTEM on 70-85-9802Suqqoeset/100 WBC (Bld)0.5 % Normal0.0 - 2.0 %[facility] HemeAutoSSBasophils/Leukocytes Auto (Bld) [Pure # fraction]0.0 E9/LNormal0.0 - 0.2 E9/LFTMC HemeAutoSSEosinophils/100 WBC (Bld)0.6 %Normal0.0 - 8.0 %[facility] HemeAutoSSEosinophils/Leukocytes Auto (Bld) [Pure # fraction]0.1 E9/LNormal0.0 - 0.5 E9/LFTMC HemeAutoSSLymphocytes/100 WBC (Bld) 36.8 %Isjeqs78.0 - 50.0 %[facility] HemeAutoSSLymphocytes/Leukocytes Auto (Bld) [Pure # fraction]2.9 E9/LNormal1.0 - 4.0 E9/LFTMC HemeAutoSSMonocytes/100 WBC (Bld)8.7 %Normal4.0 - 14.0 %[facility] HemeAutoSSMonocytes/Leukocytes Auto (Bld) [Pure # fraction]0.7 E9/LNormal0.2 - 1.0 E9/LFTMC HemeAutoSSNeutrophils/100 WBC (Bld) 53.4 %Fefjoe74.0 - 75.0 %[facility] HemeAutoSSNeutrophils/Leukocytes Auto (Bld) [Pure # fraction]4.2 E9/LNormal2.0 - 7.5 E9/LFTMC HemeAutoSSHEMATOLOGYOrdered By: Isha Yates on 33-31-7059Hoszpojbaok distribution width (RBC) [Ratio]14.6 %High10.9 - 14.2 %[facility] HemeAutoSSHematocrit (Bld) [Volume fraction]36.4 %Normal 34.0 - 46.0 %[facility] HemeAutoSSHemoglobin (Bld) [Mass/Vol]12.6 g/yDRbijjw09.0 - 16.0 gm/dLFTMC HemeAutoSSMCH (RBC) [Entitic mass]29.9 vuIwyrde48.0 - 34.0 pgFTMC HemeAutoSSMCHC (RBC) [Mass/Vol]34.6 g/tXIwshhz89.4 - 36.0 gm/dLFTMC HemeAutoSS MCV (RBC) [Entitic vol]86.6 qYEutxyt90.0 - 100.0 fLFTMC HemeAutoSSPlatelet mean volume (Bld) [Entitic vol]8.2 fLNormal6.4 - 10.8 fLFTMC HemeAutoSSPlatelets (Bld) [#/Vol]367.0 E9/JBtojce392.0 - 500.0 E9/LFTMC HemeAutoSSRBC (Bld) [#/Vol] 4.2 E12/LLow4.3 - 5.9 E12/LFTMC HemeAutoSSWBC corrected for nucl RBC Auto (Bld) [#/Vol]7.9 E9/LNormal4.0 - 11.0 E9/LFTMC HemeAutoSSPREG QUANT HCGon 08-29-2021 HCG HDTWV728 mIU/mLNormalWhite HospitalComment on above:Performed By: #### PREGQNT ####[facility] [address] [address] Lim [facility] Anthony's HospitalComment on above:Result Comment: 5-50 0-1 WEEK 40-300 1-2 WEEKS 100-1,000 2-3 WEEKS 500- 6,000 3-4 WEEKS 5,000-200,000 1-2 MONTHS 10,000-100,000 2-3 MONTHS 3,000-50,000 2ND TRIMESTER 1,000-50,000 3RD TRIMESTERPerformed By: #### PREGQNT ####[facility] [address] [place], [place] [address]Dr. Edward GillPREWily QUANT HCGon 11-14-0466DUG QUANT99 mIU/mLNUniversity Hospitals Geauga Medical CenterComment on above:Performed By: #### HIV12 #### [facility] [address] [address] [address] [facility]'s HospitalComselect specialty hospital on above: Result Comment: 5-50 0-1 WEEK 40-300 1-2 WEEKS 100-1,000 2-3 WEEKS 500-6,000 3-4 WEEKS 5,000-200,000 1-2 MONTHS 10,000-100,000 2-3 MONTHS 3,000-50,000 2ND TRIMESTER 1,000-50,000 3RD TRIMESTERPerformed By: #### HIV12 #### [facility] [address] [address] [address] Edward Cross QUANT HCGon 42-48-8667ATR QUANT37 mIU/mLNUniversity Hospitals Geauga Medical CenterComselect specialty hospital on above:Performed By: #### PREGQNT ####[facility] [address] [place], [place] [address]Dr. Edward Lim RANGESEE BELOWNormalThe Piyush HospitalComment on above:Result Comment: 5-50 0-1 WEEK 40-300 1-2 WEEKS 100-1,000 2-3 WEEKS 500-6,000 3-4 WEEKS 5,000-200,000 1-2 MONTHS 10,000-100,000 2-3 MONTHS 3,000-50,000 2ND TRIMESTER 1,000-50,000 3RD TRIMESTERPerformed By: #### PREGQNT ####[facility] [address] [address]DrLazara Leon ChangCHEMISTRYOrdered By: SYSTEM SYSTEM on 54-30-5996Jorzgrk [Mass/Vol]4.5 g/dLNormal3.3 - 5.0 gm/dLFTMC Remisol Albumin/Globulin [Mass ratio]1.2 {ratio}Normal1.1 - 2.2FTMC RemisolALP [Catalytic activity/Vol]53 [iU]/cFgppng94 - 98 Int._Unit/LFTMC RemisolALT No additional P-5'-P [Catalytic activity/Vol]24 [iU]/dNormal6 - 46 Int._Unit/LFTMC RemisolAnion gap [Moles/Vol]13 mmol/LNormal6 - 16 mEq/LFTMC RemisolAST [Catalytic activity/Vol]20 [iU]/dNormal5 - 43 Int._Unit/LFTMC RemisolBilirubin [Mass/Vol]0.6 mg/dLNormal0.0 - 1.1 mg/dLFTMC RemisolCalcium [Mass/Vol]9.4 mg/dL Normal8.9 - 11.1 mg/dLFTMC RemisolChloride [Moles/Vol]97 mmol/LIvo159 - 111 mmol/LFTMC RemisolCO2 [Moles/Vol]24 mmol/YOlqzrg39 - 31 mmol/LFTMC Remisol Creatinine [Mass/Vol]0.8 mg/dLNormal0.5 - 1.3 mg/dLFTMC RemisolGFR/1.73 sq M.predicted among blacks MDRD (S/P/Bld) [Vol rate/Area]mL/min/1.73 v4Gjevnt >=59mL/min/1.73 m2FT Chem SGFR/1.73 sq M.predicted among non-blacks MDRD (S/P/Bld) [Vol rate/Area]mL/min/1.73 l3Ustrbx>=59mL/min/1.73 m2[facility] S Globulin (S) [Mass/Vol]3.7 g/dLNormal1.4 - 4.0 gm/dLFTMC RemisolGlucose [Mass/Vol]74 mg/lLYuvmnq28 - 199 mg/dLHILLCREST [facility] [place] RemisolMagnesium [Mass/Vol]2.0 mg/dL Normal1.3 - 2.4 mg/dLFTMC RemisolPotassium [Moles/Vol]3.5 mmol/LNormal3.5 - 5.3 mmol/LFTMC RemisolProtein [Mass/Vol]8.2 g/dLHigh6.0 - 7.8 gm/dLFT Remisol Sodium [Moles/Vol]130 mmol/EBdb846 - 145 mmol/LFTMC RemisolTSH Qn4.56 m[IU]/L Normal0.34 - 5.60 mcIU/mLHILLCREST [facility] [place] RemisolUrea nitrogen [Mass/Vol]7 mg/dLNormal5 - 21 mg/dLFTMC RemisolUrea nitrogen/Creatinine [Mass ratio]9 mg/mgLow10 - 20[facility] RemisolHEMATOLOGYOrdered By: SYSTEM SYSTEM on 16-39-7475Ctgnacfjk/100 WBC (Bld) 0.3 %Normal0.0 - 2.0 %[facility] HemeAutoSSBasophils/Leukocytes Auto (Bld) [Pure # fraction]0.0 E9/LNormal0.0 - 0.2 E9/LFTMC HemeAutoSSEosinophils/100 WBC (Bld)0.5 %Normal0.0 - 8.0 %[facility] HemeAutoSSEosinophils/Leukocytes Auto (Bld) [Pure # fraction]0.0 E9/LNormal0.0 - 0.5 E9/LFTMC HemeAutoSSLymphocytes/100 WBC (Bld) 35.9 %Atjwpr25.0 - 50.0 %[facility] HemeAutoSSLymphocytes/Leukocytes Auto (Bld) [Pure # fraction]3.2 E9/LNormal1.0 - 4.0 E9/LFTMC HemeAutoSSMonocytes/100 WBC (Bld)8.8 %Normal4.0 - 14.0 %[facility] HemeAutoSSMonocytes/Leukocytes Auto (Bld) [Pure # fraction]0.8 E9/LNormal0.2 - 1.0 E9/LFTMC HemeAutoSSNeutrophils/100 WBC (Bld) 54.5 %Lttnmx93.0 - 75.0 %[facility] HemeAutoSSNeutrophils/Leukocytes Auto (Bld) [Pure # fraction]4.8 E9/LNormal2.0 - 7.5 E9/LFTMC HemeAutoSSHEMATOLOGYOrdered By: Trena Castro on 81-73-8590Cndvnselyws distribution width (RBC) [Ratio]14.1 % Nphwps23.9 - 14.2 %[facility] HemeAutoSSHematocrit (Bld) [Volume fraction]38.5 %Normal 34.0 - 46.0 %[facility] HemeAutoSSHemoglobin (Bld) [Mass/Vol]13.1 g/vHLybebl78.0 - 16.0 gm/dLFTMC HemeAutoSSMCH (RBC) [Entitic mass]29.4 njWizhxh03.0 - 34.0 pgFTMC HemeAutoSSMCHC (RBC) [Mass/Vol]34.1 g/cDAdcmgz34.4 - 36.0 gm/dLFTMC HemeAutoSS MCV (RBC) [Entitic vol]86.0 gYNdqbtm75.0 - 100.0 fLFTMC HemeAutoSSPlatelet mean volume (Bld) [Entitic vol]8.3 fLNormal6.4 - 10.8 fLFTMC HemeAutoSSPlatelets (Bld) [#/Vol]334.0 E9/IHbflxp917.0 - 500.0 E9/LFTMC HemeAutoSSRBC (Bld) [#/Vol] 4.5 E12/LNormal4.3 - 5.9 E12/LFTMC HemeAutoSSWBC corrected for nucl RBC Auto (Bld) [#/Vol]8.9 E9/LNormal4.0 - 11.0 E9/LFTMC HemeAutoSSOB/SENIOR IT ARCHITECT - Office Visiton [id number]/SENIOR IT ARCHITECT - Office VisitChief ComplaintComplains of: heavy bleeding Declines nuclear operations specialist, Rukhsanacecily Salomon, ROSE History of Present IllnessSanna [...] stroke 07/2017 PSH as above POB- 2007 [id number] 17week loss subchorionic h ljzpeflcz4024 39weeks bleeding at 5weeks for 2 weeks diet 7870-1469 calories exercise none 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 Review [...] History History of Oral Surgery Tooth Extraction [place] Family History No pertinent family history Family history of cerebrovascular accident (CVA) (V17.1) (Z82.3) Family history of diabetes mellitus (V18.0) (Z83.3) Family history of cerebrovascular accident (CVA) (V17.1) (Z82.3) Family history of cerebrovascular accident (CVA) (V17.1) (Z82.3) Allergies No Known Drug Allergies Recorded By: Susie Salomon; 11/08/2017 4:19:42 PM Current Meds Ciprofloxacin HCl - 500 MG Oral Tablet;Ther apy: 24Meh3114 to Recorded Dispense: 0 Days ; #: Sufficient Tablet; Refill: 0; BUBBA = N; Record; Last Updated By: Susie Salomon; 11/08/2017 4:19:42 PM Plavix 75 MG Oral Tablet;Therapy: 65Von1734 to Recorded Dispense: 0 Days ; #: Sufficient Tablet; Refill: 0; BUBBA = N; Record; Last Updated By: Susie Salomon; 11/08/2017 4:19:42 PM Provera 10 MG Oral Tablet;Therapy: 39Zqt0181 to Recorded Dispense: 0 Days ; #: Sufficient Tablet; Refill: 0; BUBBA = N; Record; Last Updated By: Susie Salomon; 11/08/2017 4:19:42 PM Vitals Vital Signs Recorded: 69Xgt3425 04:67MEZrovrlui442Ehanjxzzk17Vkombv0 ft 6 vcOrpxfd615 lb BMI Zlmzywgyzh76.57BSA Calculated1.0RIV95Wsm5571Wkzf Scale6-7 Physical ExamConstitutional: Alert and in no acute distress. Well developed, well nourished. Head and Face: Head and face: Normal. Psychiatric: Alert and oriented x 3. Affect normal to patient baseline. Mood: Appropriate. Diagnoses/Problems Anemia (285.9) (D64.9) Asthma (493.90) (J45.909) Depression with anxiety (300.4) (F41.8) History of Oral Surgery Tooth Extraction [place] No pertinent family history : Mother [...] GIDeclines STI testing todayWeight gain, offered a ground crew chief consult and she declined. Encouraged exercise. Signatures Electronically signed by : RICHARD Ulrich; Nov 12 2017 8:46PM EST (Author)NormalUH TouchworksAntiphospholipid Abs IgG/IgMon 47-43-5973Lgrxwovizxdbcmtl Ab-ZmI370 GPLCritically high0-14Penrose HospitalComment on above:Result Comment: INTERPRETIVE INFORMATION: High- Specificity Antiphospholipid Antibody,IgG14 GPL or less......Kmjbrbbi10 26 GPL.........Indeterminate Suggest repeat testing in 12 weeks27 GPL or greater. ..PositiveHigh-specificity antiphospholipid IgG and IgM antibodies are directedagainsta mixture of phosphatidylserine, phosphatidic acid, and beta- 2glycoprotein 1antigens. These antibodies are more specific than cardiolipin IgG andIgMantibodies in the diagnosis of antiphospholipid syndrome (APS). Antiphospholipid Ab-IgM6 MPLNormal004 Sloan StreetComment on above:Result Comment: INTERPRETIVE INFORMATION: High-Specificity Antiphospholipid Antibody,IgM14 MPL or less......Snqvbyub19 37 MPL.........Indeterminate Suggest repeat testing in 12 weeks38 MPL or greater. ..PositiveHigh-specificity antiphospholipid IgG and IgM antibodies are directedagainsta mixture of phosphatidylserine, phosphatidic acid, and beta- 2glycoprotein 1antigens. These antibodies are more specific than cardiolipin IgG andIgMantibodies in the diagnosis of antiphospholipid syndrome (APS).Performed by [employer],[address] [place] [address],[place] [address] byh.Domo, Zhang Bledsoe MD - Lab. [facility] Miscellaneous test 1on 05-28-2017 Miscellaneous Test 1SEE NOTELongmont United HospitalComment on above: Result Comment: Test name [...] Additional information and recommendations for testingmay befound athttp://[email or web address] - Sistema de Informação do [employer]idor.Interviu Me/Topics/AutoimmuneDz/ConnectiveTissueDz/i ndex.html.Performed by [employer],[address] [facility] [place] [address] fea.Domo,Zhang Bledsoe MD - Lab. DirectorCardiolipin Antibodies, IgA, IgG, IgMon 57-11-1226Xfyrhffhuvv Ab IgA0 APLNormal0-11Penrose HospitalComment on above:Result Comment: INTERPRETIVE INFORMATION: Cardiolipin Antibodies, IgA0-11 APL: Jjgnzsvz10-20 APL: In iudxuqhgmdz51-27 APL: Low to Moderately Piwwnsza19 APL or above: High PositivePerformed by [employer],[address] [facility] [place] [address] huz.DomoZhang MD - Lab. DirectorCardiolipin Ab IgG 111 GPLCritically high0-14Penrose HospitalComment on above:Result Comment: INTERPRETIVE INFORMATION: Anti-Cardiolipin IgG Ab0-14 GPL: Rekurekt10- 19 GPL: Vcacpmvhpfsvx23-93 GPL: Low to Moderately Gmbihbjo09 GPL or above: High PositiveThe persistent presence [...] other criteria phospholipid antibody tests.Cardiolipin Ab IgM10 MPLNormal0-12Penrose HospitalComment on above:Result Comment: INTERPRETIVE INFORMATION: Anti-Cardiolipin IgM0-12 MPL: Ckhlhfjl47-72 MPL: Qixxjfjfypaho28-76 MPL: Low to Moderately Chmvmwqk05 MPL or above: High PositiveThe persistent presence [...] and/orothercriteria phospholipid antibody tests.Jennifer-Simpson Virus by PCRon 34-79-2079Wgsdjry Simpson Virus by PCRNot DetectedNoSoutheast [place] HospitalComment on above:Result Comment: NOT DETECTED - A negative result does not rule out thepresence of PCR inhibitors inthe patient specimen or assayspecific nucleic acid in concentrations below the level ofdetection bythe assay.INTERPRETIVE INFORMATION: Jennifer Simpson Virus by PCRTest developed and characteristics determined by [employer]. SeeCompliance Statement A: Domo/CSPerformed by [employer],[address] [facility] [address] dfu.Domo, Zhang Bledsoe MD - Lab. DirectorEpstein Simpson Virus SourceCSFLongmont United HospitalOligoclonal Band Profileon 32-41-6064Jfdcwea4923 mg/lTVtzema3960-7648KecwcPenrose HospitalAlbumin 5.2 ratioNormal0.0-9.0Penrose HospitalAlbumin, CSF20 mg/dLNormal 0-35Penrose HospitalCSF IgG Synthesis Rate<0.0Normal<=8.0Penrose HospitalCSF Oligoclonal BandsNegativeNormalNegativePenrose HospitalCSF Oligoclonal Bands Number0 BandsNormal0-1MUCHealth Broomfield HospitalGlobulin1060 mg/xXYysrll090-4903RaeugPenrose Hospital Comment on above:Result Comment: REFERENCE INTERVAL: Immunoglobulin GAccess complete set of age- and/or gender-specific reference intervalsforthis test in the [facility] (Domo).IgG Index0.45 ratioNormal 0.28-0.66Penrose HospitalImmunoglobulin G CSF2.5 mg/dLNormal0.0-6.0 Penrose HospitalINR Coag RelTime (Bld)0.12 {INR}Normal0.09-0.25 Pen[facility] HospitalInterpretationSee NoteNoSoutheast Colorado HospitalComment on above:Result Comment: Isoelectric focusing/immunofixation reveals no oligoclonal bands ineitherthe CSF orthe serum. This is considered to be a negative result foroligoclonal bands. Approximately 5 percentof patients with clinicallydefinitive multiple sclerosis will have a negative result.Performed by [employer],[address] [facility] [place] [address] obp.Domo, Zhang Bledsoe MD - Lab.DirectorMyelin Basic Protein, CSFon 26-46-8055Pvtegy Basic Protein1.82 ng/mLNormal0.00-5.50Penrose HospitalComment on above:Result Comment: INTERPRETIVE INFORMATION: Myelin Basic ProteinTest developed and characteristics determined by [employer]. SeeCompliance Statement D: Domo/CSPerformed by [employer],[address] [facility] [place] [address] bpq.Domo, Zhang Bledsoe MD - Lab. [facility] Miscellaneous test 1on 93-30-6657Tffezyi Prompt 65377OtfhsqGhgggLongmont United HospitalComment on above:Result Comment: Corrected result; [place] [id number] on 05/25/2017 at 13:14 by V/AUT LAIsoflux Miscellaneous test 1on 08-47-3596Tqetzum Anlhuw62194OjzdxhXiengLongmont United HospitalComment on above:Result Comment: DS DNACSF Cell Counton 05-25-[address] ([place], [place])Comment on above:Result Comment: Differential not performed -Total Nucleated cellsCSF AppearanceClear NormalPenrose HospitalCSF ColorColorlessLongmont United HospitalCSF Tube NumberTube 4Longmont United HospitalFluid Clot Evaluationsee belowLongmont United HospitalComment on above:Result Comment: No Clots SeenTotal Nucleated Cells0 K/uLNormal0-8Penrose HospitalTotal Red Blood Cells0 K/uLLongmont United HospitalCSF Glucose on 22-05-3938SXS Xvbfijq46 mg/iSKzsjix13-49QjkumPenrose HospitalCSF Proteinon 33-10-3258PTX Vcrraff92 mg/kNCxmkbk75-86QjqqiPenrose Hospital Creatine Kinaseon 67-74-7913Wmiedici kinase (CK)71 U/LNormal0-170Penrose HospitalCulture, CSFon 87-56-0227Jbuvxvq, CSFORDER#: [id number] ORDERED BY: VERNA MONGE: CSF (Spinal Fluid) CSF COLLECTED: 05/25/17 13:25ANTIBIOTICS AT AMARILYS.: RECEIVED : 05/25/17 13:25Gram Stain Direct FINAL 05/25/17 15:30 No WBC's, No organisms seenCulture, CSF FINAL 05/28/17 09:04 No growth at 72 hours Longmont United HospitalFL LUMBAR PUNCTURE DIAGon 05-86-3042MU LUMBAR PUNCTURE DIAGFL LUMBAR PUNCTURE DIAG : [...] LUMBAR PUNCTURE.Interpreted by:NIKITA Mezaigned by:Humera Covarrubias MD05/25/17inal resultNormalPenrose Hospital Homocysteineon 80-80-6823Trlozigsaecu7.1 umol/LNormal0.0-15.0Penrose HospitalPartial Thromboplastin Timeon 92-72-3863uCCN31.7 kBuwpvc60.6-35.4 Penrose HospitalComment on above:Result Comment: Heparin Therapeutic Range: 38.8 - 54.6 seconds.Prothrombin Timeon 37-45-0005RWM Coag RelTime (PPP)1.0 {INR}[facility] United HospitalComment on above:Result Comment: Recommended INR therapeutic [...] secProthrombin time (PT) Coag time (PPP) 10.7 sNormal8.1-13.7[facility] Vital Signs Date TimeVital SignValuePerforming QolyaeqvxCaradzmg15-53-8659 09:26-0400Body mass index (BMI) [Ratio]33.98 kg/z1Xsgeg iBuyitBetter DO Work Phone: [facility] SpringsZaimeredut66-50-7754 09:26-0400Body ciyhpg67.48 kgCorey Montez DO Work Phone: [facility] SpringsFjpzwypqbg90-36-2694 09:26-0400Diastolic blood jeuuxwwa60 mm[Hg]Wilton CCS Environmental Work Phone: [facility] SpringsIiwzmgvbfk13-21-2107 09:26-0400Systolic blood avqpkqmr129 mm[Hg]Wilton CCS Environmental Work Phone: [facility] SpringsWexeegzcic66-89-7020 13:44-0400Body fynfhh614.6 cmApreet Callahan MD MPH Work Phone: [phone]10-20-2025 13:44-0400Body mass index (BMI) [Ratio]33.73 kg/u3RcjbvSam Callahan MD MPH Work Phone: [phone] [place], [place] 304[address]10-20-2025 13:44-0400Body kuhrnk43.8 kgSam Callahan MD MPH Work Phone: [facility]10-20-2025 13:44-0400Diastolic blood tuurykgw92 mm[Hg]Sam Callahan MD MPH Work Phone: [facility]10-20-2025 13:44-0400Heart rate 79 /minSam Callahan MD MPH Work Phone: 1(567)585-[address] [place], [place] [address]10-20-2025 13:44-0400 Respiratory rate18 /minSam Callahan MD MPH Work Phone: [facility]10-20-2025 13:44-0400Systolic blood pirlxapp207 mm[Hg]Sam Callahan MD MPH Work Phone: [facility]10-13-2025 10:45-0400Body mass index (BMI) [Ratio]34.12 kg/e1Ahukf Montez DO Work Phone: [phone] [place], [place] [address]Gqzoarfgvr27-32-3230 10:45-0400Body ighbqw97.89 kgCorey Montez DO Work Phone: [phone])353-[address] [place] [address]-13-2025 10:45-0400Diastolic blood ubiwwxqa88 mm[Hg]Wilton Montez DO Work Phone: [phone] [place], [place] [address]Xmujvmuzme64-11-8165 10:45-0400Systolic blood dvefuony844 mm[Hg]Wilton Montez DO Work Phone: [phone] [place], [place] [address]Hvtnrecyqh79-64-4627 09:30-0400Body mass index (BMI) [Ratio]34.14 kg/k2Vgiuj Montez DO Work Phone: [phone])983-[address] [place], [place] [address]Hnvjykptec73-84-1884 09:30-0400Body kkcraf20.94 kgCorey Montez DO Work Phone: [phone] [place], [place] [address]Mavzyuymrv24-73-6876 09:30-0400Diastolic blood nvyckcgg77 mm[Hg]Wilton Montez DO Work Phone: [phone] [place], [place] [address]Sujiqfzdwt00-74-9294 09:30-0400Systolic blood oaarprcm527 mm[Hg]Wilton Montez DO Work Phone: [phone])[phone] [place] [address]-08-2025 15:14-0400Body mass index (BMI) [Ratio]33.73 kg/l1Znzns Montez DO Work Phone: [place] [address]Sudwfbutoh75-09-2750 15:14-0400Body .8 kg Wilton Montez DO Work Phone: [facility] SpringsMfgsggcxdh49-50-4561 15:14-0400Diastolic blood vsgpaxcd50 mm[Hg]Wilton Herrmann DO Work Phone: noPemiscot Memorial Health SystemsIvvytwquep14-88-8428 15:14-0400Systolic blood euqqadls648 mm[Hg]Wilton Herrmann DO Work Phone: noPemiscot Memorial Health SystemsLwvztfztvx62-47-6743 14:22-0400Body mass index (BMI) [Ratio]33.89 kg/u0IeutyyseMukul Noyola MD Work Phone: [phone]09-04-2025 14:22-0400Body aruunv02.25 kgMukul Noyola MD Work Phone: [phone] [place], [place] [address]09-04-2025 14:22-0400Diastolic blood hpirzzqf51 mm[Hg]Mukul Noyola MD Work Phone: [phone])[address] [place], [place] [address]09-04-2025 14:22-0400Systolic blood ytwckbpt827 mm[Hg]Mukul Noyola MD Work Phone: [phone] [place], [place] [address]08-26-2025 11:34-0400Body voyrsz753.7 cmKatherine Negrete APRN.RECEIVING MANAGER Work Phone: [facility]08-26-2025 11:34-0400Body mass index (BMI) [Ratio]33.57 kg/k3QoknkKatherine Negrete APRN.RECEIVING MANAGER Work Phone: [facility]08-26-2025 11:34-0400Body temperature 97.59 [degF]Katherine Negrete INSTRUCTIONAL SPECIALIST.RECEIVING MANAGER Work Phone: [facility]08-26-2025 11:34-0400Body sveuwg18.4 kgKatherine Negrete APRN.RECEIVING MANAGER Work Phone: [facility]08-26-2025 11:34-0400Diastolic blood hdoinfqy07 mm[Hg]Katherine Negrete INSTRUCTIONAL SPECIALIST.RECEIVING MANAGER Work Phone: [facility]08-26-2025 11:34-0400Heart rate80 /min Katherine Negrete APRN.RECEIVING MANAGER Work Phone: [facility]08-26-2025 11:34-0400Respiratory rate 16 /minKatherine Negrete APRN.RECEIVING MANAGER Work Phone: [facility]08-26-2025 11:34-1530EdE0% (BldA) [Mass fraction]98 %Katherine Negrete APRN.RECEIVING MANAGER Work Phone: [facility]08-26-2025 11:34-0400Systolic blood brbmyaqo161 mm[Hg]Katherine Negrete INSTRUCTIONAL SPECIALIST.RECEIVING MANAGER Work Phone: [facility]08-14-2025 09:28-0400Body mass index (BMI) [Ratio]33.41 kg/z5Gfwsa Montez DO Work Phone: [facility] SpringsVeykmodrro23-16-7358 09:28-0400Body gqqicl46.89 kgCorey Montez DO Work Phone: [place] [address]Gwoybelfnx83-07-0944 09:28-0400Diastolic blood pddtnwqy06 mm[Hg]Wilton Montez DO Work Phone: [place] [address]Nqpiaryecg07-31-8523 09:28-0400Systolic blood ucvgwkvs269 mm[Hg]Wilton Montez DO Work Phone: [facility] SpringsEnvhlblpzm37-09-9703 10:53-0400Body mass index (BMI) [Ratio]33.57 kg/z5Ysoto Montez DO Work Phone: [facility] SpringsFeutclkwls73-98-0369 10:53-0400Body yzowoh17.35 kgCorey Montez DO Work Phone: [facility] SpringsHhsoxakygm87-02-4424 10:53-0400Diastolic blood scucuhmi72 mm[Hg]Wilton Montez DO Work Phone: [facility] SpringsZhvhbgebhh68-00-8783 10:53-0400Systolic blood qyhvgbxb944 mm[Hg]Wilton Montez DO Work Phone: [place] [address]Rjcihyjqie46-09-2875 13:07-0400Body mass index (BMI) [Ratio]33.73 kg/p7LarakgLorena Enciso RN Work Phone: 1(722)628-[address] [place], [place] [address]2007-23-2025 13:07-0400Body ssuvxu41.8 kgoLrena Enciso RN Work Phone: 1(967)585-[address] [place], [place] [address]2007-03-2025 09:32-0400Body mass index (BMI) [Ratio]33.81 kg/v4Esjtz Montez DO Work Phone: [facility] SpringsSwpzbzmwrj01-90-8223 09:32-0400Body ixmiut59.03 kgCorey Montez DO Work Phone: [phone] [place], [place] [address]Jrfcjzrzvl10-57-1783 09:32-0400Diastolic blood iyjtihkr01 mm[Hg]Wilton Montez DO Work Phone: [facility] SpringsHenvvydhit14-85-0137 09:32-0400Systolic blood uqqodcxv353 mm[Hg]Wilton Montez DO Work Phone: 1([phone] [place], [place] [address]Qiqgbszshx03-12-3157 14:23-0400Body mass index (BMI) [Ratio]33.46 kg/h8XtrxdKatherine Negrete APRN.RECEIVING MANAGER Work Phone: [facility]07-01-2025 14:23-0400Body temperature 97 [degF]Katherine Negrete APRN.RECEIVING MANAGER Work Phone: [facility]07-01-2025 14:23-0400Body rpqoyh53.1 kgKatherine Negrete APRN.RECEIVING MANAGER Work Phone: [facility]07-01-2025 14:23-0400Diastolic blood dtajuged60 mm[Hg]Katherine Negrete APRN.RECEIVING MANAGER Work Phone: [facility]07-01-2025 14:23-0400Heart rate82 /min Katherine Negrete APRN.RECEIVING MANAGER Work Phone: [facility]07-01-2025 14:23-0400Respiratory rate 16 /minKatherine Negrete APRN.RECEIVING MANAGER Work Phone: [facility]07-01-2025 14:23-4059PlW5% (BldA) [Mass fraction]100 %Katherine Negrete APRN.RECEIVING MANAGER Work Phone: [facility]07-01-2025 14:23-0400Systolic blood twnriinf898 mm[Hg]Katherine Negrete APRN.RECEIVING MANAGER Work Phone: [facility]06-05-2025 14:10-0400Body mass index (BMI) [Ratio]33.89 kg/m2[facility]06-05-2025 14:10-0400Body omaqnq31.25 kgParkland Health Center06-05-2025 14:10-0400Diastolic blood rerzogqf81 mm[Hg][facility]06-05-2025 14:10-0400Systolic blood kfwcjbys845 mm[Hg][facility]03-27-2025 12:07-0400Body mass index (BMI) [Ratio]34.44 kg/h2Azizi Montez DO Work Phone: [facility] SpringsFaephkdpqf64-49-6802 12:07-0400Body .8 kg Wilton Montez DO Work Phone: [facility] SpringsNlxleacccn54-33-7656 12:07-0400Diastolic blood mm[Hg]Wilton Montez DO Work Phone: [facility] SpringsEzpeiwasmn40-12-4481 12:07-0400Systolic blood igjionsz179 mm[Hg]Wilton Montez DO Work Phone: [facility] SpringsEbmszmsqmb89-67-2100 08:27-0500Blood Pressure LocationScott KAPLE 857-0022Vfixja-JgngjSt. [facility] Hospital03-03-2025 08:27-0500Diastolic blood ixuwkgqd24 mm[Hg]Penelope KAPLE [phone]-IrtbjSt. [facility] Hospital03-03-2025 08:27-0500Heart rate77 /minScott KAPLE [phone]-YauetSt. Elizabeth Hospital03-03-2025 08:27-2205XwD7% (BldA) [Mass fraction]99 %Penelope CASAS [phone]-SjbwbSt. Elizabeth Hospital03-03-2025 08:27-0500Systolic blood bhlunxnb256 mm[Hg]Penelope CASAS 043-9330Nyugpd-EjskdSt. Elizabeth Hospital02-24-2025 15:21-0500Body mass index (BMI) [Ratio]34.93 kg/z8Bcaeb Montez DO Work Phone: [facility] SpringsLooxbweflh92-13-2868 15:21-0500Body gswuka56.16 kgCorey Montez DO Work Phone: [facility] SpringsEiukhpsgja13-61-8130 15:21-0500Diastolic blood mm[Hg]Wilton Montez DO Work Phone: [facility] SpringsRjemmufpyw57-71-6646 15:21-0500Systolic blood auiedjgm789 mm[Hg]Wilton Montez DO Work Phone: [facility] SpringsInaecfzxni18-31-1683 16:14-0500Blood Pressure LocationJESSICA BACA [phone]-XypfhW[facility]oster [facility] 06-19-2024 16:14-0500Diastolic blood kwhfdvbu72 mm[Hg]JESSICA BACA [phone]-LspdaWooster Community Hospital 06-19-2024 16:14-0500Heart rate74 /minBARRONCLYN KEVEN [phone]-BvivdWooster Community Hospital 06-19-2024 16:14-3565ZgO7% (BldA) [Mass fraction]100 %JESSICA BACA [phone]-ClmqnWooster Community Hospital 06-19-2024 16:14-0500Systolic blood hbzooafs633 mm[Hg]JESSICA BACA [phone]-KvzxwKn[facility] 06-09-2024 13:55-0500Blood Pressure LocationScott KAPLE [phone]-XjyezSt. [facility] Hospital02-10-2025 13:55-0500Diastolic blood ikpwytqc76 mm[Hg]Penelope KAPLE [phone]-KdtzsSt. [facility] Hospital02-10-2025 13:55-0500Heart rate78 /minScott KAPLE [phone]-XriosSt. Elizabeth Hospital02-10-2025 13:55-9973RhA3% (BldA) [Mass fraction]99 %Penelope KAPLE 119-9325Rwhfey-FudznSt. Elizabeth Hospital02-10-2025 13:55-0500Systolic blood ofknqatk462 mm[Hg]Penelope STYLESLE 105-3338Xdnkrk-JvlnrSt. Elizabeth Hospital02-03-2025 11:43-0500Body mass index (BMI) [Ratio]34.51 kg/z3Gneok Montez DO Work Phone: [facility] SpringsEjcghzgupg36-12-6113 11:43-0500Body ayjfoa98.98 kgCorey Montez DO Work Phone: [facility] SpringsUrgxpcclwk05-97-4323 11:43-0500Diastolic blood mqqrlowx29 mm[Hg]Wilton Montez DO Work Phone: [facility] SpringsFxoeilnzfo07-85-7227 11:43-0500Systolic blood efjujukr729 mm[Hg]Wilton Montez DO Work Phone: [facility] SpringsHyyjlegmeg76-54-7792 13:07-0500Body wxvfoh101.7 cmVramos Calix MD Work Phone: [facility]01-29-2025 13:07-0500Body mass index (BMI) [Ratio]35.02 kg/g7DnghaKristofer Calix MD Work Phone: [facility]01-29-2025 13:07-0500Body temperature 97.59 [degF]Kristofer Calix MD Work Phone: [facility]01-29-2025 13:07-0500Body nohulq52.5 kgKristofer Calix MD Work Phone: [facility]01-29-2025 13:07-0500Diastolic blood rdctmiwd65 mm[Hg]Kristofer Calix MD Work Phone: [facility]01-29-2025 13:07-0500Heart rate72 /min Kristofer Calix MD Work Phone: [facility]01-29-2025 13:07-0500Respiratory rate 16 /minKristofer Calix MD Work Phone: [facility]01-29-2025 13:07-5923RnZ4% (BldA) [Mass fraction]99 %Kristofer Calix MD Work Phone: [facility]01-29-2025 13:07-0500Systolic blood rylqoivv977 mm[Hg]Kristofer Calix MD Work Phone: [facility]01-07-2025 14:40-0500Body mass index (BMI) [Ratio]35.41 kg/m8Rvcjd Montez DO Work Phone: [id number] 14:40-0500Body kromye63.52 kgCorey Montez DO Work Phone: [facility] [id number] 14:40-0500Diastolic blood mm[Hg]Wilton Montez DO Work Phone: [facility] [id number] 14:40-0500Systolic blood pccgyihj088 mm[Hg]Wilton Montez DO Work Phone: [facility] [id number] 10:57-0500Body mass index (BMI) [Ratio]35.85 kg/m2[facility]12-06-2024 10:57-0500Body iooekt623.75 kgNoFre[facility]10-08-2024 13:29-0400Blood Pressure LocationScott KAPLE [phone]-Gfxhx[address] [place], [place] [id number] 13:29-0400Body zrmtfyuyikn33.06 [degF]Penelope CASAS [phone]-Muved[address] [place], [place] [id number] 13:29-0400Diastolic blood nzbhulgc99 mm[Hg]Penelope STYLESLE 659-0412Myfiup-Kmjhp[address] [place], [place] 9404010-08-2024 13:29-0400Heart rate76 /minScott KAPBEN 511-8634Wygbzi-Sziop[address] [place], [place] 9404010-08-2024 13:29-0400Respiratory rate16 /minScott KAPBEN 312-6420Rocxuz-Wixyy[address] [place], [place] 9404010-08-2024 13:29-2798LgY8% (BldA) [Mass fraction]99 %Penelope CASAS 486-8092Zzouba-Edzty[address] [place], [place] 9404010-08-2024 13:29-0400Systolic blood gexdlasv488 mm[Hg]Penelope CASAS 267-6024Bnwmvm-Dpupl[address] [place], [place] 9404010-05-2024 14:39-0400Blood Pressure LocationPreeti Gudimella 117-0645Kjtejf-Jwdgd[address] [place], [place] 5320610-05-2024 14:39-0400Body slvnmvnkobj54.06 [degF]Anni Gudimella 457-5099Wmgcml-Cpbdm[address] [place], [place] 5320610-05-2024 14:39-0400Diastolic blood aevrajsk16 mm[Hg]Anni Gudimella 464-1602Vxfhlc-FtjraKindred Hospital Lima10-05-2024 14:39-0400Heart rate98 /minPreeti Gudimella 758-2482Kdlpqi-Gkvdg[address] [place], [place] 5320610-05-2024 14:39-5436RqA0% (BldA) [Mass fraction]99 %Anni Gudimella 096-9169Vjnwxg-VhqbiKn[facility]ient Wjxz43-26-7315 14:39-0400Systolic blood hdqcefzv059 mm[Hg]Anni Gudimella 641-8473Ebmghz-GebozKnox Community Hospital [facility] Ciik55-91-7708 13:45-0400Body kagszw201.7 cmVramos Calix MD Work Phone: [facility]09-04-2024 13:45-0400Body mass index (BMI) [Ratio]36.52 kg/k2HrbcwKristofer Calix MD Work Phone: [facility]09-04-2024 13:45-0400Body temperature 97.11 [degF]Kristofer Calix MD Work Phone: [facility]09-04-2024 13:45-0400Body jerwos072.7 kgKristofer Calix MD Work Phone: [facility]09-04-2024 13:45-0400Diastolic blood wuyzezwc35 mm[Hg]Kristofer Calix MD Work Phone: [facility]09-04-2024 13:45-0400Heart rate91 /min Kristofer Calix MD Work Phone: [facility]09-04-2024 13:45-0400Respiratory rate 16 /minKristofer Calix MD Work Phone: [facility]09-04-2024 13:45-5537YpN8% (BldA) [Mass fraction]100 %Kristofer Calix MD Work Phone: [facility]09-04-2024 13:45-0400Systolic blood pvnkbidr333 mm[Hg]Kristofer Calix MD Work Phone: [facility]08-01-2024 13:40-0400Body temperature 97.7 [degF]Chair Plover Work Phone: [facility]08-01-2024 13:40-0400Diastolic blood uiilnjrc99 mm[Hg]Chair Stew Work Phone: [facility]08-01-2024 13:40-0400Heart rate75 /min Chair Plover Work Phone: [facility]08-01-2024 13:40-0400Respiratory rate 16 /minChair Plover Work Phone: [facility]08-01-2024 13:40-6524QxB2% (BldA) [Mass fraction]99 %Chair Plover Work Phone: [facility]08-01-2024 13:40-0400Systolic blood swhuqamp445 mm[Hg]Chair Plover Work Phone: [facility]07-25-2024 14:00-0400Body temperature 98.2 [degF]Chair Plover Work Phone: [facility]07-25-2024 14:00-0400Diastolic blood capliddk47 mm[Hg]Chair Stew Work Phone: [facility]07-25-2024 14:00-0400Heart rate79 /min Chair Plover Work Phone: [facility]07-25-2024 14:00-0400Respiratory rate 16 /minChair Plover Work Phone: [facility]07-25-2024 14:00-6271ArD5% (BldA) [Mass fraction]99 %Chair Plover Work Phone: [facility]07-25-2024 14:00-0400Systolic blood pyyrrrlo930 mm[Hg]Chair Stew Work Phone: [facility]07-18-2024 14:08-0400Diastolic blood mm[Hg]Chair Stew Work Phone: [facility]07-18-2024 14:08-0400Heart rate85 /min Chair Stew Work Phone: [facility]07-18-2024 14:08-0400Respiratory rate 18 /minChair Stew Work Phone: [facility]07-18-2024 14:08-2738HbH7% (BldA) [Mass fraction]96 %Chair Stew Work Phone: [facility]07-18-2024 14:08-0400Systolic blood uwlorfev225 mm[Hg]Chair Stew Work Phone: [facility]07-12-2024 14:44-0400Blood Pressure LocationMonica Saba 455-5979Brpihi-Iggpt[address] [place], [place] 9404007-12-2024 14:44-0400Body fbezipzbjtt10.34 [degF]Monica Saba 106-9333Rbkkmk-Hfojp[address] [place], [place] 9404007-12-2024 14:44-0400Diastolic blood mm[Hg]Monica Saba 137-1714Vspweb-Vlqak[address] [place], [place] 9404007-12-2024 14:44-0400Heart rate85 /Jennifer Saba 392-1995Eiszts-Zxjpb[address] [place], [place] 9404007-12-2024 14:44-0400Respiratory rate16 /Jennifer Saba 612-3883Usbcwf-Sajfh[address] [place], [place] 9404007-12-2024 14:44-5846SzD0% (BldA) [Mass fraction]99 %Monica Saba 390-3738Kifwlp-Icket[address] [place], [place] 9404007-12-2024 14:44-0400Systolic blood dugojiww491 mm[Hg]Monica Saba 070-8570Uztgxy-Fydpw[address] [place], [place] 9404006-25-2024 16:48-0400Blood Pressure LocationLourdes Garber 482-1866Bhfmvt-Eypjc[address] [place], [place] 9404006-25-2024 16:48-0400Body tccvtxctyge57.52 [degF]Lourdes Garber 955-2866Bdxnsh-Nxddk[address] [place], [place] 9404006-25-2024 16:48-0400Diastolic blood zwwdiizz65 mm[Hg]Lourdes Garber 155-1578Fbpfhf-Aplig[address] [place], [place] 9404006-25-2024 16:48-0400Heart rate86 /minLourdes Garber 165-7536Ykxemi-Ymjrh[address] [place], [place] 9404006-25-2024 16:48-0085IwC9% (BldA) [Mass fraction]99 %Lourdes Garber 617-2625Oqpqvs-Joylx[address] [place], [place] 9404006-25-2024 16:48-0400Systolic blood mm[Hg]Lourdes Garber 812-8729Pxbpbz-Grmmc[address] [place], [place] 9404005-31-2024 21:17-0400Body aebxzsmfkap13.06 [degF]Benny Uribe [address]05-31-2024 21:17-0400 Diastolic blood apldotst16 mm[Hg]Benny Uribe [address] [place], [place] 7256705-31-2024 21:17-0400Heart rate67 /minBenny Uribe [address] [place], [place] 7256705-31-2024 21:17-0400Mean blood yelbfhsw93 mm[Hg]Benny Uribe [address] [place], [place] 7256705-31-2024 21:17-7464WaW6% (BldA) [Mass fraction]95 %Benny Uribe [address] [place], [place] 7256705-31-2024 21:17-0400 Systolic blood uyzzdpzj766 mm[Hg]Benny Uribe [address] [place], [place] 3648005-31-2024 20:00-0400 Diastolic blood uuecoszz83 mm[Hg]Benny Uribe [address] [place], [place] 3648005-31-2024 20:00-0400Heart rate78 /minBenny Uribe [address] [place], [place] 3648005-31-2024 20:00-0400Mean blood vskasasa12 mm[Hg]Benny Uribe [address] [place], [place] 3648005-31-2024 20:00-0400 Respiratory rate20 /minBenny Uribe [address] [place], [place] 3648005-31-2024 20:00-0400 Systolic blood cvmdywda596 mm[Hg]Benny Uribe [address] [place], [place] 3648005-31-2024 19:30-0400 Diastolic blood dfbungbe08 mm[Hg]Benny Uribe [address] [place], [place] 3648005-31-2024 19:30-0400Heart rate80 /minBenny Uribe [address] [place], [place] 3648005-31-2024 19:30-0400Mean blood udszsdsy864 mm[Hg]Benny Uribe [address] [place], [place] 3648005-31-2024 19:30-0400 Respiratory rate18 /minBenny Uribe [address] [place], [place] 3648005-31-2024 19:30-9608YfE8% (BldA) [Mass fraction]100 %Benny Uribe [address] [place], [place] 3648005-31-2024 19:30-0400 Systolic blood eizuzwxn032 mm[Hg]Benny Uribe [address] [place], [place] 3648005-31-2024 19:00-0400 Respiratory rate17 /minBenny Uribe [address] [place], [place] 3648005-31-2024 18:32-0400Body uaufhygfvjq78.42 [degF]Benny Uribe [facility]05-31-2024 18:32-0400Heart rate69 /minAntonderik Rony [facility]05-31-2024 17:46-0400 Diastolic blood gtmpnjis41 mm[Hg]JANET DUNHAM 096-6286Kkwyoa-Eziqb[address] [place] [address] Convenient Yype03-00-0952 17:46-0400Mean blood abrpitey873 mm[Hg]RIDGEDALE DUNHAM 101-0744Gfxgyq-Vkypm[address] [place] [address] [facility]ient Xnxi25-11-7926 17:46-0400Systolic blood qejtadvh547 mm[Hg][facility] 885-3486Zixuhd-Mxqde[address] [place] [address] Con[facility]ient Qihj36-69-5631 17:40-0400Blood Pressure LocationFRANCJONEL DUNHAM 717-4151Ayunkc-Gmfgs[address] [place] [address] [facility]ient Afkl75-31-8299 17:40-0400Body fidzgpwoxbc94.88 [degF][facility] 519-5711Pshnao-Rfxck[address] [place] [address] [facility]ient Djez29-23-8139 17:40-0400Diastolic blood gcrpooot77 mm[Hg][facility] 870-0122Eclzpr-Hizzb[address] [place] [address] Con[facility]ient Tctt52-72-9340 17:40-0400Heart rate79 /minFRPRITESH DUNHAM 150-4029Olrpwk-Voawl[address] [place] [address] [facility]ient Ekom31-50-4889 17:40-9122HoC9% (BldA) [Mass fraction]97 %RIDGEDALE DUNHAM 728-5590Xtbipz-Jpwpq[address] [place] [address] Con[facility]ient Hukj76-17-2014 17:40-0400Systolic blood oqdaxcco897 mm[Hg]JANET DUNHAM 967-4417Zviuoz-Rokox[address] [place] [address] Con[facility]ient Wdjv96-00-7394 11:42-0400Blood Pressure LocationScott KAPLE 806-0004Eceqzt-OgoweSt. [facility]04-05-2024 11:42-0400Body tcezqhykllu74.06 [degF]Penelope CASAS 651-0819Dvnszq-MuylpSt. [facility] Hospital04-05-2024 11:42-0400Diastolic blood ggvfmiqo59 mm[Hg]Penelope CASAS 135-1344Ikwurs-HhvfySt. [facility] Hospital04-05-2024 11:42-0400Heart rate72 /minScott KAPLE 481-6033Leszio-LkwmfSt. [facility] Hospital04-05-2024 11:42-0400Respiratory rate16 /minScott KAPLE 346-6358Kfbrdx-RvrxmSt. [facility] Hospital04-05-2024 11:42-0192MlG8% (BldA) [Mass fraction]99 %Penelope CASAS 487-4945Cnhbae-OeqcsSt. [facility] Hospital04-05-2024 11:42-0400Systolic blood bgdhssid561 mm[Hg]Penelope CASAS 109-4082Ricqnx-UradkSt. [facility] Hospital02-16-2024 14:05-0500Body jmcozr188.7 Jerry Calix MD Work Phone: [facility]02-16-2024 14:05-0500Body temperature 97.39 [degF]Kristofer Calix MD Work Phone: [facility]02-16-2024 14:05-0500Body hwneig123.1 kgKristofer Calix MD Work Phone: [place] [address]-16-2024 14:05-0500Diastolic blood jadtktit48 mm[Hg]Kristofer Calix MD Work Phone: [facility]02-16-2024 14:05-0500Heart rate87 /min Kristofer Calix MD Work Phone: [place] [address]-16-2024 14:05-0500Respiratory rate 16 /minKristofer Calix MD Work Phone: [facility]02-16-2024 14:05-5348ItY5% (BldA) [Mass fraction]95 %Kristoefr Calix MD Work Phone: [facility]02-16-2024 14:05-0500Systolic blood lttoulcu474 mm[Hg]Kristofer Calix MD Work Phone: [facility]01-26-2024 11:11-0500Blood Pressure LocationScott KAPLE [address] [place], [place] 3772601-26-2024 11:11-0500Body kyfdndfmqgo24.7 [degF]Penelope KAPLE [address] [place], [place] 3772601-26-2024 11:11-0500Diastolic blood wbantayz53 mm[Hg]Penelope KAPLE 564-1382Ecnsdm-Afbpx[address]01-26-2024 11:11-0500Heart rate76 /minScott KAPLE 915-8499Ugeqes-Ohbjw[address] [place], [place] 9404001-26-2024 11:11-0500Respiratory rate18 /minScott KAPLE [address] [place], [place] 3772601-26-2024 11:11-3122AlU7% (BldA) [Mass fraction]98 %Penelope KAPLE [address] [place], [place] 3772601-26-2024 11:11-0500Systolic blood vunfcviz386 mm[Hg]Penelope KAPLE 344-5134Xnrrrc-Hvmkl[address]10-19-2023 09:41-0400Blood Pressure LocationScott KAPLE 207-2397Eubcqw-Lxyrn[address] [place], [place] 9404010-19-2023 09:41-0400Body rdqcwhazmoh08.42 [degF]Penelope KAPLE 621-7235Lmqstp-Memxp[address] [place], [place] 9404010-19-2023 09:41-0400Diastolic blood urslvjtk80 mm[Hg]Penelope PRAVEEN 719-1082Tmaoki-Amdly[address] [place], [place] 9404010-19-2023 09:41-0400Heart rate80 /minScott KAPLE 820-1017Dpxjjf-Bpzju[address] [place], [place] 9404010-19-2023 09:41-0400Respiratory rate18 /minScott KAPLE 804-9073Vpqfni-Jqsmc[address] [place], [place] 9404010-19-2023 09:41-6039MmY8% (BldA) [Mass fraction]98 %Penelope STEPHANIBEN 603-3621Tvsdrw-Hyrvz[address]10-19-2023 09:41-0400Systolic blood alvafptv250 mm[Hg]Penelope PRAVEEN 079-8610Blmoyt-Kvtjg[address]06-23-2023 09:44-0400Blood Pressure LocationScott STEPHANILE [address] [place], [place] 3772606-23-2023 09:44-0400Body mnxyqjdfyvp62.24 [degF]Penelope PRAVEEN [address] [place], [place] 3772606-23-2023 09:44-0400Diastolic blood ehsgesyd05 mm[Hg]Penelope CASAS 145-9610Erfwjs-Hilzo[address]06-23-2023 09:44-0400Heart rate88 /minScott STEPHANILE 747-8551Nqeykm-Qjtyl[address] [place], [place] 9404006-23-2023 09:44-0400Respiratory rate18 /minScott KAPLE 749-3673Qybdqu-Adumz[address] [place], [place] 9404006-23-2023 09:44-9488DyF8% (BldA) [Mass fraction]98 %Penelope CASAS 435-2414Yospdg-Dfeyj[address] [place], [place] 9404006-23-2023 09:44-0400Systolic blood ykxdqyto748 mm[Hg]Penelope CASAS 432-8916Knbbee-EdjdaSt. Elizabeth Hospital03-30-2023 13:18-0400Body mqctwe799.7 cmVramos Calix MD Work Phone: [facility]03-30-2023 13:18-0400Body temperature 97.5 [degF]Kristofer Calix MD Work Phone: [facility]03-30-2023 13:18-0400Body gwazza630.78 kgKristofer Calix MD Work Phone: [facility]03-30-2023 13:18-0400Diastolic blood zmytxjlk12 mm[Hg]Kristofer Calix MD Work Phone: [facility]03-30-2023 13:18-0400Heart rate76 /min Kristofer Calix MD Work Phone: [facility]03-30-2023 13:18-0400Respiratory rate 16 /minKristofer Calix MD Work Phone: [facility]03-30-2023 13:18-8418EfX0% (BldA) [Mass fraction]97 %Kristofer Calix MD Work Phone: [facility]03-30-2023 13:18-0400Systolic blood btiriimw993 mm[Hg]Kristofer Calix MD Work Phone: [facility]12-22-2022 13:45-0500Body temperature 98.71 [degF]Chair Stew Work Phone: [facility]12-22-2022 13:45-0500Diastolic blood rpyfdbxf95 mm[Hg]Chair Stew Work Phone: [facility]12-22-2022 13:45-0500Heart rate85 /min Chair Stew Work Phone: [place] [address]-22-2022 13:45-8343MoM6% (BldA) [Mass fraction]97 %Chair Stew Work Phone: [facility]12-22-2022 13:45-0500Systolic blood dkolbktp174 mm[Hg]Chair Plover Work Phone: [facility]12-07-2022 16:27-0500Diastolic blood fjqxebez85 mm[Hg]Chair Plover Work Phone: [phone] [address]-07-2022 16:27-0500Heart rate84 /min Chair Stew Work Phone: [place] [address]-07-2022 16:27-0500Respiratory rate 18 /minChair Stew Work Phone: [place] [address]-07-2022 16:27-1773IwY5% (BldA) [Mass fraction]96 %Chair Stew Work Phone: [facility]12-07-2022 16:27-0500Systolic blood xvowutgc033 mm[Hg]Chair Stew Work Phone: [facility]11-28-2022 14:20-0500Body ajlqwv389.7 cmVramos Calix MD Work Phone: [facility]11-28-2022 14:20-0500Body temperature 97.39 [degF]Kristofer Calix MD Work Phone: [place] [address]-28-2022 14:20-0500Body agerpc231.23 kgKristofer Calix MD Work Phone: [place] [address]-28-2022 14:20-0500Diastolic blood ozrzdmpm21 mm[Hg]Kristofer Calix MD Work Phone: [place] [address]-28-2022 14:20-0500Heart stvf915 /minKristofer Calix MD Work Phone: [place] [address]-28-2022 14:20-0500Respiratory rate 16 /minKristofer Calix MD Work Phone: [facility]11-28-2022 14:20-6079JjI2% (BldA) [Mass fraction]97 %Kristofer Calix MD Work Phone: [facility]11-28-2022 14:20-0500Systolic blood ioaxjkmy901 mm[Hg]Kristofer Calix MD Work Phone: [facility]10-03-2022 11:46-0400Body hsuope769.7 cmVramos Calix MD Work Phone: [facility]10-03-2022 11:46-0400Body temperature 97.2 [degF]Kristofer Calix MD Work Phone: [facility]10-03-2022 11:46-0400Body ntocbk627.42 kgKristofer Calix MD Work Phone: [facility]10-03-2022 11:46-0400Diastolic blood dmihhzli89 mm[Hg]Kristofer Calix MD Work Phone: [facility]10-03-2022 11:46-0400Heart rate88 /min Kristofer Calix MD Work Phone: [facility]10-03-2022 11:46-0400Respiratory rate 16 /minKristofer Calix MD Work Phone: [facility]10-03-2022 11:46-1109KaB6% (BldA) [Mass fraction]99 %Kristofer Calix MD Work Phone: [facility]10-03-2022 11:46-0400Systolic blood ypccgwkg057 mm[Hg]Kristofer Calix MD Work Phone: [facility]04-22-2022 10:46-0400Blood Pressure [facility]ISAST[facility] 794-4219Mrcihw-DxstwW[facility]oster [facility] 04-22-2022 10:46-0400Diastolic blood oqjcklkp40 mm[Hg] PERNELL SIDELL 450-1789Fgdjit-EkoyeWooster Community Hospital 04-22-2022 10:46-0400Heart rate96 /minDERIK SIDELL 284-7303Smrywz-KcmywWooster [facility] Hospital 04-22-2022 10:46-3437YvD5% (BldA) [Mass fraction]99 % PERNELL SIDELL 940-0289Yqbdgl-FnmoaWooster Community Hospital 04-22-2022 10:46-0400Systolic blood suxslbvn723 mm[Hg] PERNELL SIDELL 379-1446Ibpduh-PlckaWooster Community Hospital Encounters Encounter DateEncounter [facility] ProviderFacilityStart: 03-11-2025 End: 50-24-3680bvnwpiuuvrEPBAUQOhioHealth Nelsonville Health Centertart: 03-11-2025 End: 19-20-5205Jydndy outpatient visit 25 minutesSana Palma MD Work Phone: [phone]-Vdkgv Medicine at [facility] Comment on above:Gestational diabetes mellitus (GDM) in second trimester controlled on oral hypoglycemic drug (Primary Dx); Antiphospholipid syndromeStart: 03-10-2025 End: 07-58-5920Aezzam flowsheetCorey Montez DO Work Phone: [facility]YNStart: 03-10-2025 End: 67-06-4177Cgaeka flowsheetCorey Montez DO Work Phone: NOYF [facility] OBGYNStart: 03-10-2025 End: 50-09-1772gmotvrnsgxZBYDJ FAZIONot AvailableStart: 03-06-2025 End: 70-30-8974Pltygfoeq Result EncounterCorey Montez DO Work Phone: noms External Department UnsolicitedStart: 03-06-2025 End: 90-77-9187Ovirgtanr Result EncounterCorey Montez DO Work Phone: noms External Department UnsolicitedStart: 03-02-2025 End: 87-11-2122yurmpwhynoIQHLA MARTINEZFacility:[facility] Centertart: 02-27-2025 End: 98-79-0251Wcysrrziv Result EncounterCorey Montez DO Work Phone: noms External Department UnsolicitedStart: 02-27-2025 End: 23-86-4653Medurtfin Result EncounterCorey Montez DO Work Phone: noms External Department UnsolicitedStart: 02-23-2025 End: 90-60-1506Gnitvi flowsheetCorey Montez DO Work Phone: NO[facility]BGYNStart: 02-23-2025 End: 43-23-1848Hjeaht flowsheetCorey Montez DO Work Phone: noms [facility] OBGYNStart: 02-23-2025 End: 20-00-9604ngjrhhsjohCYTSR FAZIONot AvailableStart: 02-23-2025 End: 40-15-9089Jwswie outpatient visit 15 minutesCorey Montez DO Work Phone: [facility]BGYNComment on above:Third trimester ([facility]); 30 weeks gestation of ([facility])Start: 02-20-2025 End: 38-57-6266Nkeamiond Result EncounterCorey Montez DO Work Phone: noms External Department UnsolicitedStart: 02-20-2025 End: 12-19-7776Ymkaepcgd Result EncounterCorey Montez DO Work Phone: noms External Department UnsolicitedStart: 02-17-2025 End: 72-92-7717Dmiuydjnc Result EncounterCorey Montez DO Work Phone: noms External Department UnsolicitedStart: 02-17-2025 End: 35-81-0759Xwkzblezn Result EncounterCorey Montez DO Work Phone: noms External Department UnsolicitedStart: 02-16-2025 End: 48-14-2655Yzywlj consultation new/estab patient 80 Héctor Callahan MD MPH Work Phone: [facility] HospitalComment on above:Antiphospholipid syndrome (Primary Dx); Antiphospholipid syndrome complicating , antepartum; History of CVA (cerebrovascular accident); Coordination of complex care; 29 weeks gestation of pregnancyStart: 02-16-2025 End: 38-22-6433olhaigkobmJJZQY REDDY AMBATIOur Lady of Mercy Hospitaltart: 02-10-2025 End: 91-90-4069Nchpsefax encounterAnnita WELLS Work Phone: [phone]-Cupfc Medicine at [facility] Start: 02-09-2025 End: 87-29-0716tdhzhaglkmSQTPX FAZIONot AvailableStart: 02-09-2025 End: 82-33-0821Brxdgi outpatient visit 15 minutesCorey Montez DO Work Phone: noms [facility]BGYNComment on above:Third trimester ([facility]); 28 weeks gestation of ([facility]); Anemia complicating childbirth ([facility]); Anticoagulant long-term use; Antiphospholipid antibody positive; Blood pressure elevated without history of HTN; Coagulation defect, unspecified ([facility])Start: 02-06-2025 End: 80-73-3718ozbthrajzhUNTQBEIH P DOCHEVAMercy Health [facility] Hospital HospitalStart: 02-06-2025 End: 58-07-5584Eipjxj outpatient visit 25 minutesMukul Noyola MD Work Phone: [phone]-Bdamm Medicine at [facility] Comment on above:27 weeks gestation of (Primary Dx); Multigravida of advanced maternal age in third trimester; Gestational diabetes mellitus (GDM) in second trimester controlled on oral hypoglycemic drug; Antiphospholipid syndrome complicating , antepartum; Antiphospholipid syndromeStart: 02-05-2025 End: 40-93-7900odpdajioghEZHKI [facility] Ambulatory PPGStart: 02-03-2025 End: 76-86-8388eqwpcwvbgwSvkzm R FAOFacility:FTMCStart: 01-19-2025 End: 80-67-9718zkbsmoprcdOJUQQ FAONot AvailableStart: 01-19-2025 End: 39-45-7882Jjskvv outpatient visit 15 minutesCorey Montez DO Work Phone: NOMN [facility] OBGYNComment on above:Second trimester ([facility]); 25 weeks gestation of ([facility]); Gestational diabetes mellitus (GDM), antepartum, gestational diabetes method of control unspecified([facility]); Anticoagulant long-term use; Antiphospholipid antibody positive; Antiphospholipid antibody syndrome ([facility])Start: 51-50-3151xepfnultpjHgitm R FAZIOFacility:FTMCStart: 01-13-2025 End: 21-10-9835Oulepm outpatient visit 25 minutesColleen Maxim Mays PA-C Work Phone: [phone]-Txydf Medicine at [facility] Comment on above:Gestational diabetes mellitus (GDM) in second trimester controlled on oral hypoglycemic drug (Primary Dx); Antiphospholipid syndrome; Other specified hypothyroidism; Antiphospholipid syndrome complicating , antepartumStart: 01-13-2025 End: 41-11-8493pckgdzwghcHWPPMAB E [facility] Systemtart: 01-09-2025 End: 37-65-0189Lqperczic Batsheva Noyola MD Work Phone: [phone]-Jwiyk Medicine at [facility] Comment on above:Antiphospholipid syndrome (Primary Dx)Start: 01-07-2025 End: 43-60-4531Cubmryqet encounterJacque Pat [facility]- [facility]: 01-05-2025 End: 34-44-9075ixbcrjjspgSJZRQ FAONot AvailableStart: 01-05-2025 End: 27-81-2979Vwxazw outpatient visit 15 minutesCorey [employer] Work Phone: [facility] OBGYNComment on above:Second trimester ([facility]); 23 weeks gestation of ([facility]); Thyroid disease ; Gestational diabetes mellitus (GDM), antepartum, gestational diabetes method of control unspecified([facility]); Multigravida of advanced maternal age in second trimester ([facility]); H/O loss; Lightheaded; DizzinessStart: 01-05-2025 End: 48-02-6150Uaxddb flowsheetExpert Networksy [employer] Work Phone: [facility] [place] OBGYNStart: 01-05-2025 End: 36-08-4408Lskafu flowsheetCore Montez DO Work Phone: [facility] OBGYNStart: 01-05-2025 End: 97-15-1932Olttwfceeuzgy procedureFree Hospital For Women RNMaternal- Medicine at [facility] HospitalComment on above:Multigravida of advanced maternal age [...] Family history of autism; HyponatremiaStart: 01-01-2025 End: 74-51-4832Jcdpol consultation new/estab patient 80 Margaux Noyola MD Work Phone: [facility] on above: 22 weeks gestation of (Primary Dx); Antiphospholipid syndrome complicating , antepartum; History of stroke; History of loss in prior , currently in second trimester; Gestational diabetes mellitus (GDM) in second trimester controlled on oral hypoglycemic drug; Multigravida of advanced maternal age in second trimester; Hypothyroidism affecting in second trimester; Family history of autism; HyponatremiaStart: 01-01-2025 End: 43-29-9825Kqtxah Simon Warren RNMaternal Medicine [place] Comment on above:Multigravida of advanced maternal age in second trimester (Primary Dx); Antiphospholipid syndrome complicating , antepartum; Gestational diabetes mellitus (GDM) in second trimester controlled on oral hypoglycemic drug; Insulin controlled gestational diabetes mellitus (GDM) in second trimester; AMA (advanced maternal age) multigravida 35+, second trimester; Hypothyroidism, unspecified typeStart: 12-26-2024 End: 06-15-7476Jpovia Ty Noyola MD Work Phone: [facility] - LaborComment on above: Gestational diabetes mellitus (GDM) in second trimester controlled on oral hypoglycemic drug (Primary Dx)Start: 12-23-2024 End: 32-23-1120Zzmeugj encounter procedureKatherine Negrete APRN.CNP Work Phone: Hematology/OncologyStart: 12-23-2024 End: 58-98-9907dtxdroqsebFmevrJuju Negrete APRN.CNP Work Phone: Hematology/OncologyComment on above:Antiphospholipid antibody positive (Primary Dx); Iron deficiency anemia secondary to blood loss (chronic); Vitamin D deficiency; Primary hypercoagulable state (HCC)Start: 12-17-2024 End: 58-15-3097fovhndoxhmZVIDMNSI BROGANMercy Health [facility] Hospital HospitalStart: 12-17-2024 End: 28-27-0241Lgjhvo outpatient visit 25 minutesAlisa HUTTON Work Phone: [phone]-Fvraz Medicine at [facility] Comment on above:Gestational diabetes mellitus (GDM) in second trimester controlled on oral hypoglycemic drug (Primary Dx)Start: 12-17-2024 End: 83-16-6698coalwhjspjDAPPBHJY BROCleveland Clinic [facility] HospitalStart: 12-16-2024 End: 58-57-9635Kvioarimb Result EncounterCorey Montez DO Work Phone: noms External Department UnsolicitedStart: 12-16-2024 End: 91-70-9913Qdstasnpe Result EncounterCorey Montez DO Work Phone: noms External Department UnsolicitedStart: 12-12-2024 End: 28-76-0383Vkqttahbu encounterDenikijacinta Kendall LD Work Phone: [phone]-Iavqf Medicine at [facility] Start: 12-11-2024 End: 90-82-8111Diumek flowsheetCorey Montez DO Work Phone: noms [facility] OBGYNStart: 12-11-2024 End: 42-67-3897Ahxaja flowsheetCorey Montez DO Work Phone: noms [place] OBGYNStart: 12-11-2024 End: 18-52-0279Qiwxezqlc Result EncounterCorey Montez DO Work Phone: noms External Department UnsolicitedStart: 12-11-2024 End: 32-82-9052jqpkkvxeuzKGEPE FAZIONot AvailableStart: 12-11-2024 End: 53-63-0972Vfjpaj outpatient visit 15 minutesCorey Montez DO Work Phone: noms [place] OBGYNComment on above:19 weeks gestation of ([facility]); Second trimester ([facility]); Thyroid disease ; Multigravida of advanced maternal age in second trimester ([facility]); Gestational diabetes mellitus (GDM), antepartum, gestational diabetes method of control unspecified([facility])Start: 12-03-2024 End: 86-40-9108bfakkyoqmqIIQNEZZO BROGANProMedica Toledo Hospitaltart: 12-03-2024 End: 52-52-4013Nbjjkj outpatient visit 25 minutesAlisa Saba INSTRUCTIONAL SPECIALIST-RECEIVING MANAGER Work Phone: [phone]-Bwvqh Medicine at [facility] Comment on above:Insulin controlled gestational diabetes mellitus (GDM) in second trimester (Primary Dx)Start: 12-03-2024 End: 54-76-6669Sqummercu encounterAnni Abreu CMAMaternal- Medicine at [facility] Hospitaltart: 11-20-2024 End: 79-12-9181Bhajkq flowsheetCorey Montez DO Work Phone: NOMS BCP OBStart: 11-20-2024 End: 96-03-1912Swadjs flowsheetCorey Montez DO Work Phone: NOMS BCP OBStart: 11-20-2024 End: 13-29-1892twdizorzdcRFAVQ FAZIONot AvailableStart: 11-20-2024 End: 48-23-7397Adudrk outpatient visit 15 minutesCorey Montez DO Work Phone: NOM[facility] [place] OBGYNComment on above:Second trimester ([facility]); 16 weeks gestation of ([facility]); Screening, , for anatomic survey ([facility]); Vaginal discharge; Sinus headacheStart: 11-19-2024 End: 93-85-7782easynurtevJmbijp M Frey RN Work Phone: [phone]-Mrhsb Medicine at [facility] Comment on above:Gestational diabetes mellitus (GDM), antepartum, gestational diabetes method of control unspecified(Primary Dx)Start: 11-04-2024 End: 92-51-6655Fkkpx Syd Noyola MD Work Phone: [phone]-Jxbdo Medicine at [facility] Start: 10-30-2024 End: 78-37-4377Xxtfvx flowsheetCorey Montez DO Work Phone: NOMS BCP OBStart: 10-30-2024 End: 07-59-2286Smijto flowsheetCorey Montez DO Work Phone: NOMS BCP OBStart: 10-30-2024 End: 69-53-7734Mzxiuk outpatient visit 15 minutesCorey Montez DO Work Phone: NOMS BCP OBComment on above:Second trimester ([facility]HS-HCC); 13 weeks gestation of ([facility]-HCC); Thyroid disease ; Multigravida of advanced maternal age in second trimester ([facility]HS-HCC); Gestational diabetes mellitus (GDM), antepartum, gestational diabetes method of control unspecified(HHS-HCC); Elevated glucose tolerance testStart: 10-30-2024 End: 89-12-5509niehcgzhihYNDUF FAZIONot AvailableStart: 10-29-2024 End: 91-03-4248MmjduyYrddoiBunny Paz APRN.CNP Work Phone: Hematology/OncologyComment on above:Refill Request Start: 10-28-2024 End: 56-13-5762Znlzbdm encounter Valentine Negrete APRN.CNP Work Phone: Hematology/OncologyStart: 10-28-2024 End: 66-54-5810bivikivnyyJzbipJuju Negrete APRN.CNP Work Phone: Hematology/OncologyComment on above:Primary hypercoagulable state (HCC) (Primary Dx); CVA, old, speech/language deficit; Cerebral hyponatremia; Personal history of TIA (transient ischemic attack)Start: 10-28-2024 End: 32-95-7801Npznwwcqv Gregoria Negrete APRN.CNP Work Phone: Cancer Appts MCComment on above:ResultsStart: 10-24-2024 End: 55-44-3114Ufsahasjo Gregoria Negrete APRN.CNP Work Phone: Hematology/OncologyComment on above:Lab OrdersStart: 10-20-2024 End: 07-76-2955YrlzehHybgi Abhyankar MD Work Phone: Hematology/OncologyComment on above:Refill Request Start: 10-13-2024 End: 65-13-8379OtlqbjDell Khan RNMaternal- Medicine at [facility] HospitalComment on above:Gestational diabetes mellitus (GDM), antepartum, gestational diabetes method of control unspecified(Primary Dx)Start: 10-06-2024 End: 74-17-8939Jjqdvgnmx Result EncounterCorey Montez DO Work Phone: noms External Department UnsolicitedStart: 10-06-2024 End: 88-49-5226Klqomqiiy Result EncounterCorey Montez DO Work Phone: noms External Department UnsolicitedStart: 10-02-2024 End: 71-90-7082iizgpehgslUFIYU FAZIONot AvailableStart: 10-02-2024 End: 98-30-4630Ezcebe outpatient visit 5 minutesNoms Bcp Ob Montez NurseNOMS BCP OBComment on above:GA: 9a8oIqcfi: 09-11-2024 End: 79-58-8694Vuvpmowkv Result EncounterCorey Montez DO Work Phone: noms External Department UnsolicitedStart: 09-11-2024 End: 59-10-3536Zdjkmwiln Result EncounterCorey Montez DO Work Phone: noms External Department UnsolicitedStart: 09-09-2024 End: 12-99-9796eijpahcodrPjnwx A KAPLEFacility:Val PCStart: 09-09-2024 End: 88-00-5158Viyevti encounter procedureScomike CASAS [phone]-BbafpKnox Community Hospital [facility] Start: 09-07-2024 End: 07-97-7334sgvglzuimaPnfxl M. DempseyFacility:GIL NorwalkStart: 09-02-2024 End: 30-69-3317Kyefjvagi encounterNatmurphy Johnson RNHematology/OncologyComment on above:Patient UpdateStart: 08-26-2024 End: 07-02-3495Imqgnfoie encounterKristofer Calix MD Work Phone: Hematology/OncologyComment on above:Lab OrdersStart: 08-23-2024 End: 80-66-3771berzysqcgwXcdew R FAZIOFacility:FTMCStart: 08-23-2024 End: 45-68-2706Zixbhlj encounter procedureCorecarmen Palmer MONTEZ [facility] Start: 07-25-2024 End: 03-07-9173DacublFzwbc Abhyankar MD Work Phone: Hematology/OncologyComment on above:Refill Request Start: 07-24-2024 End: 81-60-6176Mnsjip flowsheetCorey Montez DO Work Phone: noms BCP OBStart: 07-24-2024 End: 95-18-3536Qkmpww flowsheetCorey Montez DO Work Phone: noms BCP OBStart: 07-24-2024 End: 06-78-5015zcafaiaupnWEFEP FAZIONot AvailableStart: 07-24-2024 End: 21-72-4268Gjuxmi outpatient visit 15 minutesCorey Montez DO Work Phone: noms BCP OBComment on above:Irregular menstrual cycle Start: 07-09-2024 End: 10-85-8652hbaqsstffhUtwtcgi A VisciFacility:FTMCStart: 07-09-2024 End: 09-11-9577Cjfhjbj encounter procedureInez [place] [facility] Start: 07-08-2024 End: 61-00-3692Wiz-admission assessmentInez [place]field [facility] Start: 07-07-2024 End: 57-15-3546xiiqvnymtnOtsvz A KAPLEFacilсветлана:Val PCStart: 06-30-2024 End: 55-47-4098nibgffhykeJqbin A KAPLEFacility:Val PCStart: 06-30-2024 End: 77-65-8954Dfghmwe encounter procedureScomike CASAS [phone]-RawqlKnox Community Hospital [facility] Start: 06-23-2024 End: 28-80-3797Pvctpm outpatient visit 15 minutesCorey Montez DO Work Phone: noms [facility] OBComment on above:Vaginal bleeding; Dizziness; Abnormal TSH; Vaginal discharge; Pelvic pain in femaleStart: 06-23-2024 End: 09-66-7201aafcrkuzypFZCEO FAZIONot AvailableStart: 06-23-2024 End: 17-76-7586Afexxgmy Result EncounterCorey Montez DO Work Phone: noms External Department UnsolicitedStart: 06-23-2024 End: 38-57-0179Jpqkpkkk Result EncounterCorey Montez DO Work Phone: noms External Department UnsolicitedStart: 06-19-2024 End: 00-88-2786bthkpxarwlOKLHUG R CIERSEZWSKIFacility: MilanStart: 06-19-2024 End: 50-80-1083Eyknpii encounter procedureJACLYN Jeanine BACA [phone]-[facility]gddkW[facility]oster [facility] Start: 06-12-2024 End: 14-91-2143isjgaddggsYmzbm R SHYLAZIOFacility:FTMCStart: 06-12-2024 End: 16-19-5900Nccxfgj encounter procedureCorey R MONTEZ [facility] Start: 06-09-2024 End: 74-88-9728tnokdcgtihGlcxc A KAPLEFacility:Val PCStart: 06-09-2024 End: 61-63-1162Imkdrcz encounter procedureCorey R MONTEZ [facility] Start: 06-06-2024 End: 37-10-2229cmyxsfumzwUAJRHA A LEHMANNFacility:FT BellevueStart: 06-02-2024 End: 54-36-6894dcliabkewcVNVCH FAZIONot AvailableStart: 06-02-2024 End: 87-06-1755Pnnhlt outpatient visit 15 minutesCorey Montez DO Work Phone: noms BCP OBComment on above:Follow-up visit after miscarriage; Abnormal TSH; History of thyroid diseaseStart: 05-28-2024 End: 11-18-8888Xgcduoyrh encounterKristofer Calix MD Work Phone: Cancer Appts MCStart: 05-28-2024 End: 38-18-7239Xtuxyl outpatient visit 25 minutesKristofer Calix MD Work Phone: Hematology/OncologyComment on above:Primary hypercoagulable state (HCC) (Primary Dx); CVA, old, speech/language deficit; Iron deficiency anemia secondary to blood loss (chronic); Vitamin D deficiency; Antiphospholipid antibody syndrome (HCC)Start: 05-28-2024 End: 80-23-8954gypupolutiTCUVQ ABHYANKARFacility:[facility] Centertart: 88-16-5274szwqybfeoaUogks A KAPFacility:Cammal PCStart: 05-14-2024 End: 13-52-8888Ocxyvibph encounterNatmurphy Johnson RNHematology/OncologyComment on above:Patient UpdateStart: 05-10-2024 End: 57-79-1870Wkbvkjglt Result EncounterCorey Montez DO Work Phone: noms External Department UnsolicitedStart: 05-10-2024 End: 10-40-9411Xtjlyvqpv Result EncounterCorey Montez DO Work Phone: noms External Department UnsolicitedStart: 05-10-2024 End: 12-98-5860srdvhisbtoVgyfv FazioFiMarietta [facility] Work Phone: Start: 05-10-2024 End: 50-39-2843Voikrfmk ReferredCorey Montez DO Work Phone: [facility] Path Spec Piyush HospStart: 05-06-2024 End: 54-83-4767yfxcplhqbwSMUEQ FAZIONot AvailableStart: 05-06-2024 End: 82-25-7954Ayzjpt flowsheetCorey Montez DO Work Phone: noms BCP OBStart: 05-06-2024 End: 30-91-4048Iyvgjo flowsheetCorey Montez DO Work Phone: NOMI BCP OBStart: 05-06-2024 End: 59-72-2263hzvuhtgfztLYSIN FAZIONot AvailableStart: 05-06-2024 End: 50-95-6791Lzeopu outpatient visit 15 minutesCorey Montez DO Work Phone: noms BCP OBComment on above:14 weeks gestation of ; Second trimester ; Confirm viability with history of miscarriage, ultrasoundStart: 04-28-2024 End: 69-94-8298PfdgfxGzuvc Abhyankar MD Work Phone: Hematology/OncologyComment on above:Refill Request Start: 04-12-2024 End: 69-39-8948Jxcqpammz Result EncounterCorey Montez DO Work Phone: noms External Department UnsolicitedStart: 04-12-2024 End: 48-86-4572Uxdvqdoin Result EncounterCorey Montez DO Work Phone: noms External Department UnsolicitedStart: 04-05-2024 End: 99-24-6764Qvagjgdkj Result EncounterCorey Montez DO Work Phone: noms External Department UnsolicitedStart: 04-05-2024 End: 28-91-5503Duwfeyvoy Result EncounterCorey Montez DO Work Phone: noms External Department UnsolicitedStart: 04-04-2024 End: 09-41-3132ecmutovglhFOLKK FAZIONot AvailableStart: 04-04-2024 End: 69-15-6594Ccitpc outpatient visit 5 minutesNoms Bcp Ob Montez NurseNOMS BCP OBComment on above:GA: 9z4hBmjqx: 03-01-2024 End: 77-98-4921gwqqouqrnrBckym R FAZIOFacility:FTMCStart: 03-01-2024 End: 57-01-4543Isbhgtm encounter procedureCorey R MONTEZ [facility] Start: 02-27-2024 End: 67-90-1962umlqzgdlmcUiiis R FAZIOFacility:FTMCStart: 02-27-2024 End: 17-14-8078Cgxprksmq encounterNatmurphy Johnson RNHematology/OncologyComment on above:Patient QuestionStart: 02-25-2024 End: 20-18-5620anydgumbycHeovq R FAZIOFacility:FTMCStart: 02-25-2024 End: 03-37-3068Jyfhepf encounter procedureCorey R MONTEZ [facility] Start: 02-23-2024 End: 75-87-0202apbommpauoSiord A KAPLEFacility:FTMCStart: 02-23-2024 End: 06-53-3945Neffrze encounter procedureCorey R MONTEZ [facility] Start: 02-05-2024 End: 72-47-2971lethgimaiqWoilf A STEPHANILEFacility:Val PCStart: 02-05-2024 End: 76-51-3644Bukmfeu encounter procedureScott A KAPLE [phone]-MfhfxKnox Community Hospital [facility] Start: 02-05-2024 End: 61-21-2720Tmow adult monitoring check doneScott A STEPHANILE [phone]-TuahfKnox Community Hospital [facility] Start: 02-02-2024 End: 56-36-6232vitdmygruhFrrwhv GudimellaFacility:GIL TaylorkStart: 02-02-2024 End: 28-67-3507Okrkpqk encounter procedurePreeti Merlincatiesherry [phone]-UatcqKnox Community Hospital [facility] Start: 56-25-3366fqpnetfplmWrdup A STEPHANI Facility:Cammal PCStart: 01-24-2024 End: 91-81-1086ZzuxlhEvhrk Abhyankar MD Work Phone: Hematology/OncologyComment on above:Refill Request Start: 01-02-2024 End: 30-19-3286Nvqquigbn encounterKristofer Calix MD Work Phone: Cancer Appts MCComment on above:ResultsStart: 01-02-2024 End: 70-84-2703Nkdxfw outpatient visit 15 minutesKristofer Calix MD Work Phone: Hematology/OncologyComment on above:Iron deficiency anemia secondary to blood loss (chronic) (Primary Dx); Vitamin D deficiency; Malaise and fatigueStart: 12-17-2023 End: 58-80-9332Ogpigaydt encounterNatalimaxim Johnson RNHematology/OncologyStart: 12-06-2023 End: 45-51-9543dfdoxbdhzpJcmatlnmo L ClarkFacility:FTMCStart: 12-06-2023 End: 71-73-4961Dltwwpk encounter procedureMonica Saba [facility] Start: 35-14-5171zraegfcmepGwpzz A STEPHANI Facility:Cammal PCStart: 11-29-2023 End: 85-05-8232ftdpujntwoBmhra Abhyankar MD Work Phone: Hematology/OncologyComment on above:Iron infusion side effects?Refill RequestIron deficiency anemia of (Primary Dx); Iron deficiency anemia secondary to blood loss (chronic)Start: 11-22-2023 End: 73-01-9930csklzznrokPrsfm Angelito Claudio Work Phone: Hematology/OncologyComment on above:Iron deficiency anemia of (Primary Dx); Iron deficiency anemia secondary to blood loss (chronic)Start: 11-15-2023 Telephone encounterFinancial Navigator Delgado Work Phone: Hematology/OncologyStart: 11-15-2023 End: 53-70-4931qbttwiirihEgpbj Angelito Stew Work Phone: Hematology/OncologyComment on above:Iron deficiency anemia of (Primary Dx); Iron deficiency anemia secondary to blood loss (chronic)Start: 11-09-2023 End: 06-61-1917Zmspnra encounter procedureElirachna Saba [phone]-XowngKnox Community Hospital [facility] Start: 11-09-2023 End: 87-07-0164Ewdotl WorkLori Penelope FLYNNematology/OncologyStart: 11-05-2023 Telephone encounterKristofer Calix MD Work Phone: Cancer Appts MCComment on above:AppointmentStart: 10-23-2023 End: 94-01-5666zaccohqbzcNpebmjr Grace MisslerFacility:Val PCStart: 10-23-2023 End: 36-64-5833Jucyuut encounter procedureLourdes Garber [phone]-RmcddKnox Community Hospital [facility] Start: 09-28-2023 End: 03-34-3863Klzlzmyjg department patient visitBenny Uribe [facility] Start: 09-28-2023 End: 24-41-1602bzsfygnrrjDMDelma DUNHAMFacility:GIL TaylorkStart: 09-28-2023 End: 75-94-4580Ynetdxf encounter procedureJANET DUNHAM [phone]-UdquvKnox Community Hospital [facility] Start: 76-76-0702Vgxfslpqo encounterKristofer Calix MD Work Phone: Canrsr Appts MCComment on above:Appointment RescheduledStart: 09-21-2023 End: 46-05-1509ovccpqmqypZteax Abhyankar MD Work Phone: Hematology/OncologyComment on above:Iron deficiency anemia secondary to blood loss (chronic) (Primary Dx)Start: 09-21-2023 End: 50-03-2982Kyxhgilpfwlo consultation with Song Calix MD Work Phone: Hematology/OncologyStart: 08-03-2023 End: 31-39-2619gpqdtrecwnSuilm A KAPLEFacility:Val PCStart: 08-03-2023 End: 31-02-0089Wrkrgcy encounter procedureScott Cecily CASAS [phone]-OezxlKnox Community Hospital [facility] Start: 06-29-2023 End: 16-90-2030bhfhgpnkwjUjmag A KAPLEFacility:Val PCStart: 06-29-2023 End: 98-65-3258Zklvkoi encounter procedureScott A KAPLE [phone]-OfhwvKnox Community Hospital [facility] Start: 06-10-8011kfksuglipyKdziwfh Powell entomology professor/OncologyComment on above:Lab results/recommendationsStart: 06-19-2023 E-mail encounter from Jose Carlos Johnson RNSANDUSKYStart: 06-15-2023 End: 80-68-8141Ggjuwa outpatient visit 25 minutesKristofer Calix MD Work Phone: Hematology/OncologyComment on above:Vitamin D deficiency (Primary Dx); Hypercalcemia; Iron deficiency anemia secondary to blood loss (chronic)Start: 06-15-2023 Telephone encounterKristofer Calix MD Work Phone: Cancer Appts MCComment on above:ResultsStart: 64-03-8459Djcglhoyx encounterKristofer Calix MD Work Phone: Hematology/OncologyComment on above:Lab OrdersStart: 35-43-5147Wyabdoepy encounterKristofer Calix MD Work Phone: Cancer Appts MCComment on above:Future Appointment Start: 05-31-2023 End: 77-16-5295ochocicfliHalgi Abhyankar MD Work Phone: Hematology/OncologyComment on above:Primary hypercoagulable state (HCC) (Primary Dx); CVA, old, speech/language deficit; Hypercalcemia; Vitamin D deficiency; Iron deficiency anemia secondary to blood loss (chronic); Malaise and fatigueStart: 05-31-2023 End: 64-83-0020Kpkfutptkeme consultation with Song Calix MD Work Phone: SANDUSKYStart: 05-25-2023 End: 49-60-0231zgxdzcpavtNrznu A KAPLEFacility:Val PCStart: 05-25-2023 End: 04-60-4324Uokupiw encounter Coreen CASAS [phone]-HistrKnox Community Hospital [facility] Start: 05-01-2023 End: 03-36-7866hapiporylzDiiwm A KAPLEFacility:FTMCStart: 04-27-2023 End: 43-62-0541Erq Drop offSelissa CASAS [facility] Start: 04-27-2023 End: 83-14-6383edbnygtriwYarrj A KAPLEFacility:FTMCStart: 04-25-2023 End: 76-07-8022thjdxtmxruBgns L SchwabFacility:FT FM BellevueStart: 03-19-2023 End: 54-12-6414kuuimumdcwYghymVernell Calix MD Work Phone: Hematology/OncologyComment on above:Primary hypercoagulable state (HCC) (Primary Dx); Iron deficiency anemia secondary to blood loss (chronic); Vitamin D deficiency; CVA, old, speech/language deficit; Antiphospholipid antibody syndrome (HCC)Start: 03-19-2023 End: 19-96-2987Jlpgaxfocayy consultation with Song Calix MD Work Phone: SANDUSKYStart: 02-15-2023 End: 20-81-4353bjtlxcjoevDycpl A KAPLEFacility:Cammal PCStart: 02-15-2023 End: 67-40-1756Gumjpsq encounter procedureScomike CASAS [phone]-CtrtcKnox Community Hospital [facility] Start: 81-77-0682vjzbnxqugbUvjkv A KAPLE Facility:Cammal PCStart: 12-26-2022 End: 35-43-2952ownbjuutzmSffhjtd Grace MisslerFacility:Cammal PCStart: 12-26-2022 End: 60-38-4483Uiwcotg encounter procedureLourdes Garber [phone]-ZuihcKnox Community Hospital [facility] Start: 12-22-2022 End: 09-14-6045uaitlzeutwYpimo Abhyankar MD Work Phone: Hematology/OncologyComment on above:Primary hypercoagulable state (HCC) (Primary Dx); Iron deficiency anemia of ; Iron deficiency anemia secondary to blood loss (chronic); Vitamin D deficiencyStart: 12-22-2022 End: 63-66-3496Npgfbvzfgwdz consultation with Song Calix MD Work Phone: SANDUSKYStart: 82-68-6891Dypsbcwff encounterKristofer Calix MD Work Phone: Cancer Appts MCComment on above:AppointmentStart: 10-20-2022 End: 20-44-9502Maovdhq encounter procedureScott A KAPLE [phone]-IntrrKnox Community Hospital [facility] Start: 09-28-2022 End: 21-76-5880uokhzsllqnBlpppVernell Calix MD Work Phone: Hematology/OncologyComment on above:Primary hypercoagulable state (HCC); CVA, old, speech/language deficit; Cerebral hyponatremiaStart: 09-28-2022 End: 91-65-0519Wbchbcvjqcmt consultation with Song Calix MD Work Phone: SANDUSKYStart: 09-26-2022 End: 31-72-1953Yesizbj encounter procedureKristofer Calix [facility] Start: 40-80-0238Ejhjzwvuq encounterValeri Yeung RN Hematology/OncologyComment on above:OrdersStart: 09-05-2022 End: 43-25-7232Syxknff encounter procedureCorey R MONTEZ [facility] Start: 08-07-2022 End: 31-15-6951Bzgxkmr encounter procedureCorey R MONTEZ [facility] Start: 07-27-2022 End: 28-63-3819Vriguy outpatient visit 25 minutesKristofer Calix MD Work Phone: Hematology/OncologyComment on above:Primary hypercoagulable state (HCC) (Primary Dx); Iron deficiency anemia secondary to blood loss (chronic); CVA, old, speech/language deficitStart: 93-73-0629DplgboDqlws Abhyankar MD Work Phone: Hematology/OncologyComment on above:Refill Request Start: 05-16-2022 End: 83-94-4074prrfbggutoPR WILTON FAZIOFacility:X2Vivqy: 05-10-2022 End: 64-71-6730hohsfcczyjWD WILTON FAZIOFacility:C9Koelj: 05-08-2022 End: 92-35-8588Tlylxkduoj and management of inpatientDR KALPANA THOMAS Facility:B6Slzif: 05-05-2022 End: 41-06-8176qxqmytqxblEO KALPANA THOMASFacility:K7Pxxsa: 05-01-2022 End: 29-26-3453zqjvdizugmXJ WILTON FAZIOFacility:N6Reeku: 04-28-2022 End: 76-31-9852fflsqxycdpLL WILTON FAZIOFacility:M4Gfixe: 04-24-2022 End: 64-98-2344yqdcrkajqhDU KALPANA THOMASFacility:K8Lxzsl: 04-20-2022 End: 22-09-6097zwiyjtdfvbKctsr 10 Stew Work Phone: Hematology/OncologyComment on above:Iron deficiency anemia secondary to blood loss (chronic) (Primary Dx); Iron deficiency anemia of pregnancyStart: 04-19-2022 End: 46-39-0773fawxlabworTO WILTON FAZIOFacility:K3Wysen: 04-14-2022 End: 21-29-4052qdpndimyyeVA WILTON FAZIOFacility:Z0Myjdt: 04-07-2022 End: 40-02-7056dpkxndzeosQO WILTON FAZIOFacility:D8Pwwsp: 15-38-2677GjsduyPjssrSalvador Calix MD Work Phone: Hematology/OncologyComment on above:Refill Request Start: 04-05-2022 End: 77-38-6264mkrgdlxakzXrlyg 11 Stew Work Phone: Hematology/OncologyComment on above:Iron deficiency anemia secondary to blood loss (chronic) (Primary Dx); Iron deficiency anemia of pregnancyStart: 08-44-9466Kdjfgwdtj Foster Gonzalez Hematology/OncologyComment on above:Appointment; Patient Question; Medication Question; OrdersStart: 03-31-2022 End: 14-46-7853unqiprepenKN WILTON FAZIOFacility:J2Evkui: 03-27-2022 End: 17-27-4272cjrquhhbppQbpvnVernell Calix MD Work Phone: Hematology/OncologyComment on above:Iron deficiency anemia secondary to blood loss (chronic); Iron deficiency anemia of pregnancyStart: 03-27-2022 End: 91-72-8122Noyxjpf encounter procedureKristofer Calix MD Work Phone: SANDUSKYStart: 34-62-4632Kixexibtb encounterKristofer Calix MD Work Phone: Cancer Appts MCComment on above:ResultsStart: 03-24-2022 End: 31-00-7977pmaeanqdwkPE WILTON FAZIOFacility:A5Xcowp: 03-16-2022 End: 70-48-3281lumpcwsrtnBL WILTON FAZIOFacility:J7Jiozu: 02-24-2022 End: 11-58-3983wkgouwsltfWK WILTON FAZIOFacility:T3Vnhle: 02-14-2022 End: 28-49-0994wzfmhkjtkiQT WILTON FAZIOFacility:M8Cotph: 01-30-2022 End: 09-16-5947nhkwequxoyKpkieVernell Calix MD Work Phone: Hematology/OncologyComment on above:Primary hypercoagulable state (HCC) (Primary Dx); CVA, old, speech/language deficit; Antiphospholipid antibody syndrome (HCC); Anemia, unspecified typeStart: 01-30-2022 End: 50-30-8958Zyfcted encounter Dionicio Calix MD Work Phone: SANDUSKYStart: 01-24-2022 End: 98-10-4966rjcptjnwhiNM WILTON FAZIOFacility:P4Cbjov: 01-24-2022 End: 89-09-6454rjpsehpzesNO WILTON FAZIOFacility:Q3Zxgru: 01-07-2022 End: 59-30-8263fawkflvkrrVE WILTON FAZIOFacility:Y9Mwkqk: 32-72-9995JaiavuNqpvwxAwilda Pope RN Work Phone: Hematology/OncologyComment on above:Refill Request Start: 12-28-2021 End: 48-72-3744gmykoasawjQH WILTON FAZIOFacility:F1Peicq: 11-21-2021 End: 49-67-7554xkqrvhogccOXHAY A KAPLEMercy Health Lorain Hospitaltart: 11-21-2021 End: 22-06-5572Jjuannxlox hospital visit by Sean Casas Work Phone: stVZ LaboratoryStart: 11-14-2021 End: 26-42-9224Tcfirta encounter procedureSAvita [facility] Start: 07-08-7731gczaaaygopML WILTON FAZIOFacility:H1 Start: 10-25-2021 End: 58-99-9027vyhxindiqtJU WILTON FAZIOFacility:P9Xzbki: 94-07-0996KwblxnXjhkn Nickelson RNHematology/OncologyComment on above:Refill RequestStart: 09-23-2021 End: 11-57-9689wplwcunldeXQ WILTON FAZIOFacility:R0Aitjw: 97-19-5900Qllrzljfh encounterMeme Easton RNHematology/OncologyComment on above:Medication QuestionStart: 61-32-2872Ftouiuyrv encounterMeme Easton entomology professor/OncologyComment on above:Patient QuestionStart: 09-01-2021 End: 05-62-4071ppjnmancqgVY WILTON FAZIOFacility:V4Wodes: 08-31-2021 End: 92-09-4017Uuzikwx encounter Coreen CASAS [facility] Start: 08-29-2021 End: 15-61-5889rkcfftqsrePX WILTON FAZIOFacility:M9Kxpip: 08-26-2021 End: 05-46-7181opgtiecebkQK WILTON FAZIOFacility:V9Kxlza: 08-24-2021 End: 81-46-8011lukxmwitvqPU WILTON FAZIOFacility:E6Lqene: 30-69-6839Owlqazlgh encounterMeme Easton RNHematology/OncologyComment on above:Patient Question Start: 08-19-2021 End: 62-35-7484Bugloup encounter procedurePERNELL LONGORIA [facility] Start: 08-19-2021 End: 16-96-2504Owd Drop offPERNELL LONGORIA [facility] Start: 08-19-2021 End: 07-82-7528Jjvbhmj encounter procedurePERNELL LONGORIA [phone]-DaumlKn[facility]osh Start: 82-16-2216Mzfqvhrva encounterKristofer Calix MD Work Phone: Cancer Appts MCComment on above:Future Appointment Start: 08-01-2021 End: 86-77-8627Ilrdwqn evaluation of patient and reportMa Nurse Delgado Golden Work Phone: Hematology/OncologyComment on above:Infective urethritis (Primary Dx)Start: 78-27-5520Ajwmcsq encounter procedureHaseeb MorelFacility:[facility] BStart: 85-67-8075Nnijeva encounter procedure ERIKA LONDONFacility:9459Start: 05-25-2017 End: 17-82-0916BkjngabvidDFPHW R [facility] Procedures DateProcedureProcedure DetailPerforming ClinicianStart: 30-35-2945LX OB BPP W NON-STRESSCorey Montez DO Work Phone: Start: 23-72-7305QE OB BPP W NON-STRESSCorey Montez DO Work Phone: Start: 35-59-8372Yxbuq dip stick/tablet rgnt non-auto w/o micrscpCorey Montez DO Work Phone: Start: 26-55-8294CD OB BPP W NON-STRESSCorey Montez DO Work Phone: Start: 77-66-3369EX OB GROWTHCorey Montez DO Work Phone: Start: 07-54-9455WLA CBC WITH AUTO DIFFCorey Montez DO Work Phone: [phone]: 72-73-1713Yracq dip stick/tablet rgnt non-auto w/o micrscpCorey Montez DO Work Phone: Start: 88-89-1917Apblo dip stick/tablet rgnt non-auto w/o micrscpCorey Montez DO Work Phone: Start: 72-88-6083Jemke dip stick/tablet rgnt non-auto w/o micrscpCorey Montez DO Work Phone: Start: 91-79-4131RU OB CERVICAL LENGTHCorey Montez DO Work Phone: Start: 10-45-2713MHN UA (CLEAN/CATCH) SUPERVISOR INCISING/MICRO IF IND.Wilton Montez DO Work Phone: Start: 99-22-2053UII THYROID STIM HORMONECorey Montez DO Work Phone: Start: 33-66-0860Wbpih dip stick/tablet rgnt non-auto w/o micrscpCorey Montez DO Work Phone: Start: 36-03-4335Lqnmq dip stick/tablet rgnt non-auto w/o micrscpCorey Montez DO Work Phone: Start: 72-27-9768Dobledz quantitative blood xcpt reagent stripCharles Cortes MD Work Phone: Start: 62-87-1264Qkaog dip stick/tablet rgnt non-auto w/o micrscpCorey Montez DO Work Phone: Start: 63-02-3938Bxtjn of thyroid stimulating hormone tshNot In System Ref ProvStart: 41-63-9442Udelpwgf screenMukul Noyola MD Work Phone: Start: 61-41-8024Aiyo scrn 1+ class nonchromoNot In System Ref ProvStart: 37-81-8219Lgybsdngbl glycosylated q0gFzwmolag Provider ExternalStart: 07-23-2017WQV 1&2 AB/AG SCREEN (P24 AG)Not In System Ref Prov Start: 84-32-9316Ojdm ia hepatitis b surface antigenNot In System Ref ProvStart: 60-97-2571PUEF AND SCREENNot In System Ref ProvStart: 12-25-5766KOR CBC WITH AUTO DIFFCorey Montez DO Work Phone: Start: 60-67-6464Bcbdo dip stick/tablet rgnt non-auto w/o micrscpCorey Montez DO Work Phone: Start: 54-52-5522XP OB TRANSVAGINALCorey Montez DO Work Phone: Start: 15-17-0886Xnkwj test visual color cmprsn methsCorey Montez DO Work Phone: Start: 86-28-6767YJLVJKRLQ VAGINITIS (HTRX)Wilton Montez DO Work Phone: Start: 18-79-5562Ymdir dip stick/tablet rgnt non-auto w/o micrscpCorey Montez DO Work Phone: Start: 88-01-8309OK PELVISCorey Montez DO Work Phone: Start: 50-17-6889Mu uterus limited 1/> fetusesCorey Montez DO Work Phone: Start: 39-95-0666KOV CBC WITH AUTO DIFFCorey Montez DO Work Phone: Start: 85-78-2128ZRD IMMUNOGLOBULIN GCorey Montez DO Work Phone: Start: 07-96-1279LXT IMMUNOGLOBULIN MCorey Montez DO Work Phone: Start: 23-03-1293NOR MISCELLANEOUS TESTCorey Montez DO Work Phone: Start: 73-74-5490XQJ APTTCorey Montez DO Work Phone: Start: 63-86-9022FRCXXL V LEIDEN MUTATIONCorey Montez DO Work Phone: Start: 37-47-9250CFZVZ HOMOCYSTEINECorey Montez DO Work Phone: Start: 42-78-0435IHWA FIBRINOGENCorey Montez DO Work Phone: Start: 29-68-0120TISAENS C-FUNCTIONALCorey Montez DO Work Phone: Start: 24-30-6499ORXYOUO S-ANTIGENCorey Montez DO Work Phone: Start: 31-55-2264FEEMFK PROTHROMBIN TIME INR W/O COUM Wilton Montez DO Work Phone: Start: 82-14-2308XVU ANTITHROMBIN ACTIVITYCorey Montez DO Work Phone: Start: 51-26-4961Hheik dip stick/tablet rgnt non-auto w/o micrscpCorey Montez DO Work Phone: Start: 41-83-9879SZO TESTCorey Montez DO Work Phone: Start: 18-78-1207UPP DRUG SCREEN RAPID (URINE)Wilton Montez DO Work Phone: Start: 25-88-6776ER OB TRANSVAGINALCorey Montez DO Work Phone: Start: 04-04-2024 End: 63-09-7066Mpjgd dip stick/tablet rgnt non-auto w/o micrscpCorey Montez DO Work Phone: Start: 83-47-7409Vsoxglt refused by patient Immunization not carried out because of patient decisionNoms NurseStart: 25-92-6940Xnpykeqv of Products of Conception, External ApproachDR WILTON HERRMANN Start: 93-07-8232Ffbe bld gluc mntr dev cleared fda spec home useCcf Provider Start: 02-25-7238Vlthjljpadn observation [Identifier] in Cervix by Cyto stain Wilton Herrmann DO Work Phone: Start: 11-21-2021 End: 30-65-1790Rsuxw-fetoprotein serumScanning Provider ExternalStart: 11-21-2021 End: 49-10-9919UTHAFDH STUDY NON-PROMEDICAScanning Provider ExternalStart: 59-48-3967WTNLVANXBKBBW TESTINGSraubrie Mullins MD Work Phone: Start: 06-49-0322Rmdce depression screening assessment Nevin Golden Work Phone: Start: 61-38-9205JAM CULTUREDHRUV PATELStart: 95-98-3062DNCLFADJT PATELStart: 30-96-7797JEB CELL COUNT WITH DIFFERENTIALDHRUV PATELStart: 31-39-0334GFTSCIT SIMPSON VIRUS PCRDHRUV PATELStart: 06-62-7211JONQWZN, CSFDHRUV PATELStart: 30-48-9397XYIBVU BASIC PROTEIN, CSFDHRUV PATELStart: 31-33-9600BXXGFYQUUQV BANDINGDHRUV PATELStart: 53-30-7711SDEZMYL, CSFDHRUV MONGE Start: 16-54-8744OWLQQLY-INRDHRUV PATELStart: 08-54-9108Ohclhb puncture lumbar diagnosticDHRUV PATELStart: 93-96-8560EJUUVTRJLFTYEPKR ANTIBODY PANELDHRUV MONGE Start: 88-76-5630YJYAIFAXTBG AB IGG, IGM, IGADHRUV PATELStart: 76-76-3847DMUDMPZ PATELStart: 16-21-7110SMGQJXIJBCDK, SERUMDHRUV PATELStart: 09-21-4852IIIR ARUP 1DHRUV PATELStart: 65-15-7340KQHVNIVKGOG PATELStart: 86-36-9571IDZMUMOGNYPJ PATELStart: 51-27-7004Deznow of breastDERIK SIDELL Start: 96-63-4110Yacfcmuafv of wisdom toothDERIK SIDELL endoscopy for ovarian cysts to drainDERIK SIDELL Vaccine refused by patientCOVID-19 vaccine dose declined( Confirmed )PERNELL SIDELL Plan of Treatment DateCare ActivityDetailAuthorStart: 85-71-1145QUD Vaccine (1 - 1-dose 75+ series)RSV Vaccine (1 - 1-dose 75+ series)[facility]: 35-70-1032Qwkfm BMI ScreeningAdult BMI ScreeningAdena Health System SystemStart: 86-88-1488Cjbzhsc ScreeningTobacco ScreeningAdena Health System SystemStart: 05-08-1668Mqzjsku ScreeningTobacco ScreeningAdena Health System SystemStart: 01-05-2026 End: 08-91-9837IL MFM with or without consultUS MFM with or without consult Imaging Routine Multigravida of advanced maternal age in second trimester Antiphospholipid syndrome complicating , antepartum Gestational diabetes mellitus (GDM) in second trimester controlled on oral hypoglycemic drug AMA (advanced maternal age) apjuwueqjjls30+, second trimester Hypothyroidism, unspecified type History of stroke History of loss in prior , currently in second trimester Hypothyroidism affecting in second trimester Family history of autism Hyponatremia Expected: 01/05/2026 (Approximate), Expires: 01/05/2026[employer] Work Phone: comment on above:Expected: 01/05/2026 (Approximate), Expires: 01/05/2026Start: 42-95-8467Levtq BMI ScreeningAdult BMI Screening [facility] SystemStart: 45-41-3933Fcnwsoi ScreeningTobacco Screening [facility] SystemStart: 94-62-8344Vnani BMI ScreeningAdult BMI Screening [facility] SystemStart: 04-07-2025 End: 08-68-8283Netyshehijbs consultation with yeqeqma2804/07/2025 1:30 PM EST Telemedicine Maternal- Medicine at [facility] [address] [place] [phone] Roxana Mays PA-C [address] [place] [address] Maternal- Medicine at [facility] HospitalStart: 03-17-2025 End: 80-69-3908Bzrvgydiebdq consultation with paieavf5603/17/2025 8:30 AM EST Telemedicine [facility] Rheumatology, A Department of [address] [address] Sam Callahan MD [address] [address] [facility], A Department of [facility] HospitalStart: 03-10-2025 End: 36-14-0688Vmyyquh encounter xebmupouf69/11/2025 9:50 AM EST Routine NOMJaylan COLVIN [address] [place], [id number] Wilton Hrermann DO [address] [address] NOMS Piyush OBGYNStart: 03-10-2025 End: 34-70-9681Hkzenejflrny consultation with ksmcwit0003/10/2025 8:00 AM EST Telemedicine Maternal- Medicine at [facility] [address] [place] [phone] Sana Palma MD [address] [place] [address] [facility]: 66-43-9508GES ( or age 60+ yrs) (1 - Risk 1-dose series)RSV ( or age 60+ yrs) (1 - Risk 1- dose series)[facility] SystemStart: 03-02-2025 End: 62-98-3972Iupifu-up yyzxljuyp96/03/2025 11:30 AM EST Visit (SP) Office Hematology/Oncology [address] [facility] [facility] [place] [address] Katherine Negrete APRN.RECEIVING MANAGER [address] [facility] [place] [address] 2 month follow upHematology/OncologyComment on above:2 month follow upStart: 03-02-2025 End: 24-68-7277Jczebdo encounter peomhtldo80/03/2025 11:15 AM EST Office Visit [facility] [address] [facility] [facility] [place] [address] labNortKalkaska Memorial Health Center LaboratoryComment on above:labStart: 02-23-2025 End: 02-22-5635Qxwquej encounter gbrrtugae74/27/2025 9:00 AM EDT Routine NOMJaylan ROBBGYN [address] [place], [id number] Wilton Herrmann DO [address] [facility] [place] [address] SHILOH [place] OBGYNStart: 02-18-2025 End: 29-20-9278EUX W Auto Differential panel - BloodCOMPLETE BLOOD COUNT AND DIFFERENTIAL Lab Routine 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) Vitamin D deficiency Primary hypercoagulable state (HCC) Expected: 02/18/2025, Expires: 05/20/2025leveland ClinicComment on above:Expected: 02/18/2025, Expires: 05/20/2025Start: 02-18-2025 End: 44-07-6098Rrblzzmyrxvdj metabolic 2000 panel - Serum or PlasmaCOMPREHENSIVE METABOLIC PANEL Lab Routine Antiphospholipid antibody positive Iron deficiency anemiasecondary to blood loss (chronic) Vitamin D deficiency Primary hypercoagulable state (HCC) Expected: 02/18/2025, Expires: 05/20/2025leveland ClinicComment on above:Expected: 02/18/2025, Expires: 05/20/2025Start: 02-16-2025 End: 31-22-7134Dznejhe encounter procedureProMedica Rheumatology, A Department of [facility]tart: 06-17-9749Fzakfegxo for malignant neoplasm of cervixNOMS HealthcareStart: 02-09-2025 End: 46-84-0835GM biophysical profile w non stress testUS biophysical profile w non stress test Imaging Routine Third trimester (HHS-HCC) 28 weeks gestation of (HHS-HCC) Anemia complicating childbirth (HHS-HCC) Anticoagulant long-term use Antiphospholipid antibody positive Blood pressure elevated without history of HTN Coagulation defect, unspecified (HHS-HCC) Expected: 02/09/2025 (Approximate), Expires: 08/10/2025 NOM[facility] HealthcareComment on above:Expected: 02/09/2025 (Approximate), Expires: 08/10/2025Start: 02-09-2025 End: 77-10-7151VY for pregnancyUS OB follow up transabdominal approach Imaging Routine Third trimester (HHS-HCC) 28 weeks gestation of (HHS-HCC) Anemia complicating childbirth (HHS-HCC) Anticoagulant long-term use Antiphospholipid antibody positive Blood pressure elevated without history of HTN Coagulation defect, unspecified (HHS-HCC) Expected: 02/09/2025, Expires: 06/12/2025NOMS HealthcareComment on above:Expected: 02/09/2025, Expires: 06/12/2025Start: 02-09-2025 End: 00-52-5916Jxrkhqd encounter tqslqykli70/13/2025 10:30 AM EDT Routine SHILOH COLVIN [address] [place] [address] Wilton Herrmann DO [address] [place] [address] SHILOH HAMILTONtart: 02-06-2025 End: 43-54-7307Dbmsypvcuwfn consultation with kezesfa6102/06/2025 2:00 PM EDT Telemedicine Maternal- Medicine at [facility] [address] [place] [address] Mukul Noyola MD [address] [facility], [address] [place] [address] [facility]: 02-05-2025 End: 31-57-7320Atsoczj encounter hfuwqsnbn31/09/2025 1:00 PM EDT Appointment [facility] [address] [facility] [address] [place] [address] Maternal Medicine MilesStart: 02-01-2025 End: 07-21-2348Khne complete W/O contrastEcho complete W/O contrast Echocardiography Routine 22 weeks gestation of Antiphospholipid syndrome complicating , antepartum Multigravida of advanced maternal age in second trimester Expected: 02/01/2025 (Approximate), Expires: 01/01/2026 [facility] Work Phone: comment on above:Expected: 02/01/2025 (Approximate), Expires: 01/01/2026Start: 01-19-2025 End: 44-14-3348Yrtxsia encounter ilxtbqolf33/22/2025 9:00 AM EDT Routine NOMJaylan COLVIN [address] [facility] [facility] [address] [place], [id number] Wilton Herrmann DO [address] [facility] [place] [address] SHILOH HAMILTONtart: 01-13-2025 End: 51-96-0815Ongrnmlklivo consultation with laefppn8201/13/2025 10:00 AM EDT Telemedicine Maternal- Medicine at [facility] [address] [place] [place] [address] Roxana Mays, PAPilyC [address] [place] [address], [id number] [facility]: 01-05-2025 End: 94-48-5910Gispvzp encounter jneihwugg88/08/2025 2:40 PM EDT Routine NOMS Piyush OBGYN [address] [facility] [facility] [address] [address] [place], [id number] Wilton Herrmann DO [address] [address] NOMS Piyush OBGYNStart: 01-05-2025 End: lead ECGECG 12 lead unit performed ECG Routine Thyroid disease Gestational diabetes mellitus (GDM), antepartum, gestational diabetes method of control unspecified (HHS-HCC) Multigravida of advanced maternal age in second trimester (HHS-HCC) Lightheaded Dizziness Expected: 01/05/2025 (Approximate), Expires:01/05/2026NOMS HealthcareComment on above:Expected: 01/05/2025 (Approximate), Expires: 01/05/2026Start: 01-05-2025 End: 45-07-1915Anmfnxixwanuzt 2D completeEchocardiogram 2D complete Echocardiography Routine Thyroid disease Gestational diabetes mellitus (GDM), antepartum, gestational diabetes method of control unspecified (HHS-HCC) Multigravida of advanced maternal age in second trimester (HHS-HCC) Lightheaded Dizziness Expected: 01/05/2025 (Approximate), Expires: 01/05/2027[facility] Work Phone: comment on above:Expected: 01/05/2025 (Approximate), Expires: 01/05/2027Start: 01-01-2025 End: 07-96-3296Qlpssvdpooch consultation with zqfcxei7401/01/2025 2:30 PM EDT Telemedicine [facility] [address] [facility] [address] [place] [address] Mukul Noyola MD [address] [facility], [address] [place] [address] Maternal Medicine MilesStart: 01-01-2025 End: 03-28-5318EU MFM with or without consultUS MFM with [...] on above:Expected: 01/01/2025, Expires: 01/01/2026Start: 01-01-2025 End: 06-75-0542Sgtbtoi encounter /04/2025 1:00 PM EDT Appointment [facility] [address] [address] Maternal Medicine MilesStart: 12-29-2024 COVID-19 Vaccine ( season)COVID-19 Vaccine ( season)[facility] SpringsStart: 50-76-4545Gblxuvsxj vaccinationSt. Mary's Medical Centertart: 12-24-2024 End: 77-83-9838XHE W Auto Differential panel - BloodCOMPLETE BLOOD COUNT AND DIFFERENTIAL Lab Routine Primary hypercoagulable state (HCC) CVA, old, spee ch/language deficit Cerebral hyponatremia Personal history of TIA (transient ischemic attack) Expected: 12/24/2024, Expires: 03/25/2025[facility] Work Phone: Comment on above:Expected: 12/24/2024, Expires: 03/25/2025Start: 12-24-2024 End: 65-90-7222Bpvkrxvfz (Vitamin B12) [Mass/volume] in Serum or PlasmaVITAMIN B12 Lab Routine Primary hypercoagulable state (HCC) CVA, old, speech/language deficit Cerebral hyponatremia Personal history of TIA (transient ischemic attack) Expected: 12/24/2024, Expires: 03/25/2025[facility] ClinicComment on above:Expected: 12/24/2024, Expires: 03/25/2025Start: 12-24-2024 End: 41-82-9658Kavtjoirraqyy metabolic 2000 panel - Serum or PlasmaCOMPREHENSIVE METABOLIC PANEL Lab Routine Primary hypercoagulable state (HCC) CVA, old, speech/language deficit Cerebral hyponatremia Personal history of TIA (transient ischemic attack) Expected: 12/24/2024, Expires: 03/25/2025[facility] Comment on above:Expected: 12/24/2024, Expires: 03/25/2025Start: 12-24-2024 End: 45-93-5949Tmeacjmd [Mass/volume] in Serum or PlasmaFERRITIN Lab Routine Primary hypercoagulable state (HCC) CVA, old, speech/language deficit Cerebral hyponatremia Personal history of TIA (transient ischemic attack) Expected: 12/24/2024, Expires: 03/25/2025[facility] ClinicComment on above:Expected: 12/24/2024, Expires: 03/25/2025Start: 12-24-2024 End: 80-49-1745Wsck and Iron binding capacity panel - Serum or PlasmaIRON AND TIBC Lab Routine Primary hypercoagulable state (HCC) CVA, old, speech/language deficit Cerebral hyponatremia Personal history of TIA (transient ischemic attack) Expected: 12/24/2024, Expires: 03/25/2025[facility] ClinicComment on above:Expected: 12/24/2024, Expires: 03/25/2025Start: 12-23-2024 End: 629855-cckcuhivjhegxh D3 [Mass/volume] in Serum or PlasmaVITAMIN D 25 HYDROXY Lab Routine 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) Vitamin D deficiency Expected: 12/23/2024, Expires: 03/24/2025[facility] Work Phone: Comment on above:Expected: 12/23/2024, Expires: 03/24/2025Start: 12-22-2024 End: 03-78-2217Xxalxz-up rycfmrpqo75/25/2025 1:30 PM EDT Visit (SP) Office Hematology/Oncology [address] [facility] [facility] [facility] [address] [place], [place] [phone] Katherine Negrete INSTRUCTIONAL SPECIALIST.RECEIVING MANAGER [address] [facility] [facility] [place] [address] 8 week follow up labHematology/OncologyComment on above:8 week follow up labStart: 12-22-2024 End: 55-90-9658Yeypjjs encounter clfssntoc70/25/2025 1:15 PM EDT Office Visit [facility] [address] [place], [place] [address] [address] 8 week follow up labNortKalkaska Memorial Health Center LaboratoryComment on above:8 week follow up labStart: 12-17-2024 End: 84-83-6547Amixivtcpedp consultation with yyqimze3012/17/2024 1:30 PM EDT Telemedicine Maternal- Medicine at [facility] [address] [place] [address] Alisa Saba, INSTRUCTIONAL SPECIALIST-RECEIVING MANAGER [address] [place] [address] [facility]: 12-11-2024 End: 34-91-3379Wohanpz encounter nwqpbbynu66/14/2025 9:10 AM EDT Routine NOMS Piyush COLVIN [address] [place], [phone] Wilton Herrmann DO [address] [place] [address] NOMS Piyush ROBBGYNStart: 12-03-2024 End: 64-84-5539Ubxwrdqfxzsa consultation with ywvdjfw0212/03/2024 2:00 PM EDT Telemedicine Maternal- Medicine at [facility] [address] [place] [address] Alisa Saba, VICTOR HUGO-RECEIVING MANAGER [address] [place] [address] [facility]: 11-20-2024 End: 53-45-5412Hqnvg fetoprotein, maternalAlpha fetoprotein, maternal Lab Routine Second trimester ([facility]) Expected: 11/20/2024 (Approximate), Expires: 01/21/2025NOMS HealthcareComment on above:Expected: 11/20/2024 (Approximate), Expires: 01/21/2025Start: 11-20-2024 End: 77-75-1795Mdhaypo encounter /24/2025 10:10 AM EDT Routine NOMS BCP OB [address] [place] [address] Wilton Herrmann, DO [address] [facility] [place] [address] NOMS BCP OBStart: 11-19-2024 End: 75-61-3729ppfjbjkdii17/23/2025 9:30 AM EDT Support Visit Maternal- Medicine at [facility] [address] [place] [address] Lorena Enciso, RN [address] [facility] CITYMax[facility], [address] [place] [address], [place] [address] Stephanie Quiros LD Fischer, Kelli, JERONIMO [address] [facility] CITYMaxim TRISH, [address] [facility] [place] [place] [address] [facility]: 11-12-2024 End: 19-86-2516PS MFM with or without consultUS MFM with or without consult Imaging Routine Gestational diabetes mellitus (GDM), antepartum, gestational diabetes method of control unspecified Expected: 11/12/2024 (Approximate), Expires: 10/13/2025[facility] Work Phone: comment on above:Expected: 11/12/2024 (Approximate), Expires: 10/13/2025Start: 10-30-2024 End: 94-57-9431Apmlaky encounter fghkqegwx70/03/2025 10:40 AM EDT Routine NOMS BCP OB [address] [facility] [place] [address] Wilton Herrmann, DO [address] [place] [address] NOMS BCP OBStart: 10-30-2024 End: 78-20-0423Aaeqjic encounter mpelalryc80/03/2025 9:30 AM EDT Routine NOMS BCP OB [address] [place] [address] Wilton Herrmann, DO [address] [place] [address] ArrivedNOMS BCP OBComment on above: ArrivedStart: 10-28-2024 End: 33-53-2135Eyeupc-up wlxhzmuvq73/01/2025 2:30 PM EDT Visit (SP) Office Hematology/Oncology [address] [place], [place] [phone] Katherine Negrete, INSTRUCTIONAL SPECIALIST.RECEIVING MANAGER [address] [place] [address] 3 month follow upHematology/OncologyComment on above:3 month follow upStart: 10-28-2024 End: 54-23-7078Wnievfg encounter kvrlgvqho57/01/2025 2:15 PM EDT Office Visit [facility] [address] [place] [address] labs - [facility] LaboratoryComment on above:labs - patient prefers to come same day Start: 10-27-2024 End: 31-21-7997Ticgkmu encounter ikawtpxln38/30/2025 9:20 AM EDT Office Visit [facility] [address] [place] [id number] Wilton Herrmann, DO [address] [place] [address] [facility] OBStart: 10-20-2024 End: 01-40-7306Rdsnlvkxarnq / ancillary services /23/2025 1:00 PM EDT Ancillary Procedure [facility] [address] [place] [address] [facility] BCP OBStart: 10-10-2024 End: 03-01-6356Tnksci-up uyzjdfwbe43/13/2025 10:40 AM EDT Visit (SP) Office Hematology/Oncology [address] [place] [address] Kristofer Calix MD [address] [place] [address] 3 month follow upHematology/OncologyComment on above:3 month follow upStart: 10-10-2024 End: 86-42-7844Fnqkguh encounter znbkydzjj95/13/2025 10:15 AM EDT Office Visit [facility] [address] [place] [address] labs - patient prefers [facility] dayAc[facility] LaboratoryComment on above:labs - patient prefers to come same day Start: 10-02-2024 End: 17-13-7919LAK/RhABO/Rh Lab Routine Missed menses , unspecified gestational age Expected: 10/02/2024 (Approximate), Expires: 10/02/2025[facility] HealthcareComment on above:Expected: 10/02/2024 (Approximate), Expires: 10/02/2025Start: 10-02-2024 End: 74-96-5402Arnlu type and Indirect antibody screen panel - BloodType and screen Lab Routine Missed menses , unspecified gestational age Expected: 10/02/2024 (Approximate), Expires: 10/02/2025[facility] Work Phone: comment on above:Expected: 10/02/2024 (Approximate), Expires: 10/02/2025Start: 10-02-2024 End: 68-34-5214Iimdx of abuse panel - Urine by Screen methodRapid drug screen, urine Lab Routine , unspecified gestational age Encounter for supervision of normal first in first trimester Expected: 10/02/2024 (Approximate), Expires: 10/02/2025[facility] HealthcareComment on above:Expected: 10/02/2024 (Approximate), Expires: 10/02/2025Start: 10-02-2024 End: 15-35-7651qtcyfutnhy68/05/2025 1:00 PM EDT Initial [facility] [place] [address] WGMZ BCP OBStart: 10-02-2024 End: 01-07-0594Tfhgsfkbaqwd / ancillary services /05/2025 12:30 PM EDT Ancillary Procedure [facility] [address] [place], [place] [address] QYDV BCP OBStart: 08-27-2024 End: 70-96-7602Xxdkqz-up tvgdzbyvx42/30/2025 2:00 PM EDT Visit (SP) Office Hematology/Oncology [address] [place] [address] [place], [place] [phone] Kristofer Calix MD [address] [place] [address] 3 month follow upHematology/OncologyComment on above:3 month follow upStart: 08-27-2024 End: 06-78-2974Dbahgwx encounter fuuaxkijj45/30/2025 1:45 PM EDT Office Visit [facility] [address] [place] [id number] labs - patient prefers to come same dayAc[facility] LaboratoryComment on above:labs - patient prefers to come same day Start: 08-26-2024 End: 783657-yhtjcorvczhxgc D3 [Mass/volume] in Serum or PlasmaVITAMIN D 25 HYDROXY Lab Routine 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 Vitamin D deficiency Expected: 08/26/2024, Expires: 11/25/2024[facility] ClinicComment on above: Expected: 08/26/2024, Expires: 11/25/2024Start: 08-26-2024 End: 99-40-0302ATS W Auto Differential panel - BloodCOMPLETE BLOOD COUNT AND DIFFERENTIAL Lab Routine 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 Vitamin D deficiency Expected: 08/26/2024, Expires: 11/25/2024[facility] Work Phone: Comment on above:Expected: 08/26/2024, Expires: 11/25/2024Start: 08-26-2024 End: 54-51-3059Dmtishjap (Vitamin B12) [Mass/volume] in Serum or PlasmaVITAMIN B12 Lab Routine 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 Vitamin D deficiency Expected: 08/26/2024, Expires: 11/25/2024[facility] ClinicComment on above: Expected: 08/26/2024, Expires: 11/25/2024Start: 08-26-2024 End: 75-73-4234Ahnqeetyxvncg metabolic 2000 panel - Serum or PlasmaCOMPREHENSIVE METABOLIC PANEL Lab Routine Antiphospholipid antibody positive Iron deficiency anemiasecondary to blood loss (chronic) Malaise and fatigue Vitamin D deficiency Expected: 08/26/2024, Expires: 11/25/2024[facility] ClinicComment on above: Expected: 08/26/2024, Expires: 11/25/2024Start: 08-26-2024 End: 76-33-1159Bgqqcfpg [Mass/volume] in Serum or PlasmaFERRITIN Lab Routine 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) Malaise and fatigue Vitamin D deficiency Expected: 08/26/2024, Expires: 11/25/2024[facility] ClinicComment on above:Expected: 08/26/2024, Expires: 11/25/2024Start: 08-26-2024 End: 39-25-6043Hilr and Iron binding capacity panel - Serum or PlasmaIRON AND TIBC Lab Routine 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 Vitamin D deficiency Expected: 08/26/2024, Expires: 11/25/2024[facility] ClinicComment on above: Expected: 08/26/2024, Expires: 11/25/2024Start: 08-26-2024 End: 02-76-6429Yuxrcbvbvhl [Units/volume] in Serum or PlasmaTHYROID STIMULATING HORMONE Lab Routine Antiphospholipid antibody positive 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) Malaise and fatigue Vitamin D deficiency Expected: 08/26/2024, Expires: 11/25/2024[facility] ClinicComment on above: Expected: 08/26/2024, Expires: 11/25/2024Start: 07-24-2024 End: 90-29-4676SykiocnahqmfBixkymacodqa Lab Routine Irregular menstrual cycle Expected: 07/24/2024 (Approximate), Expires: 07/24/2025[facility] Work Phone: comment on above:Expected: 07/24/2024 (Approximate), Expires: 07/24/2025Start: 13-44-9023JLxF,Tdap and Td Vaccines (2 - Td or Tdap) DTaP,Tdap and Td Vaccines (2 - Td or Tdap)[facility] HospitalrestOpolis SystemStart: 04-99-7798EMrD/Tdap/Td vaccine (2 - Td or Tdap)DTaP/Tdap/Td vaccine (2 - Td or Tdap)[facility]ITALStart: 55-50-1801Yfmop microalbumin profile [facility]ertart: 06-23-2024 End: 67-60-2643KI PelvisUS Pelvis w/ TV Imaging Routine Vaginal bleeding Vaginal discharge Pelvic pain in female Expected: 06/23/2024, Expires: 06/23/2025[facility] HealthcareComment on above:Expected: 06/23/2024, Expires: 06/23/2025Start: 06-02-2024 End: 04-57-9983Gunzvil encounter ypnumpkmr92/03/2025 11:20 AM EST Office Visit [facility] OB [address] [place] [phone] Wilton Herrmann, [address] [place] [address] NOMS BCP OBStart: 05-21-2024 End: 61-00-4131Pnqjhw-up ccszhkyof21/22/2025 2:20 PM EST Visit (SP) Office Hematology/Oncology [address] [facility] [place], [place] [phone] Kristofer Calix MD [address] [facility] [place] [address] 3 month follow up with labHematology/OncologyComment on above:3 month follow up with labStart: 05-21-2024 End: 72-76-9029Meirwbu encounter uwwvrvojv96/22/2025 2:00 PM EST Office Visit [facility] [address] [place] [address] 3 month follow up with labNortKalkaska Memorial [facility] Center LaboratoryComment on above:3 month follow up with labStart: 05-06-2024 End: 65-24-0113JD for pregnancyNOMS Healthcare Work Phone: comment on above:Expected: 05/06/2024, Expires: 05/06/2025Start: 05-06-2024 End: 74-17-3851Frjtekl encounter fepetsqdx70/07/2025 1:50 PM EST Routine [facility] BCP OB [address] [place] [phone] Wilton Herrmann [address] [place] [address] NOMS BCP OBStart: 04-09-2024 End: 92-94-3766Siajpj-up encounterHematology/OncologyComment on above:3 month follow up with labStart: 04-09-2024 End: 55-11-0972Dixigej encounter procedureAcadian Medical Center LaboratoryComment on above:3 month follow up with labStart: 04-04-2024 End: 47-03-9869HUI/RhABO/Rh Lab Routine Missed menses , unspecified gestational age Expected: 04/04/2024 (Approximate), Expires: 04/04/2025[facility] HealthcareComment on above:Expected: 04/04/2024 (Approximate), Expires: 04/04/2025Start: 04-04-2024 End: 66-03-5037Ckuax type and Indirect antibody screen panel - BloodType and screen Lab Routine Missed menses , unspecified gestational age Expected: 04/04/2024 (Approximate), Expires: 04/04/2025[facility] Work Phone: comment on above:Expected: 04/04/2024 (Approximate), Expires: 04/04/2025Start: 04-04-2024 End: 88-31-8142Ktupx of abuse panel - Urine by Screen methodRapid drug screen, urine Lab Routine , unspecified gestational age Encounter for supervision of normal first in first trimester Expected: 04/04/2024 (Approximate), Expires: 04/04/2025[facility] HealthcareComment on above:Expected: 04/04/2024 (Approximate), Expires: 04/04/2025Start: 04-04-2024 End: 53-40-4977YG Pelvis transvaginalUS OB transvaginal Imaging Routine Missed menses Expected: 04/04/2024 (Approximate), Expires: 04/04/2025[facility] Healthcare Comment on above:Expected: 04/04/2024 (Approximate), Expires: 04/04/2025Start: 04-02-2024 End: 662064-xzmmufuoaicdgl D3 [Mass/volume] in Serum or PlasmaVITAMIN D 25 HYDROXY Lab Routine Iron deficiency anemia secondary to blood loss (chronic) Vitamin Ddeficiency Malaise and fatigue Expected: 04/02/2024 (Approximate), Expires: 07/02/2024[facility] ClinicComment on above:Expected: 04/02/2024 (Approximate), Expires: 07/02/2024Start: 04-02-2024 End: 66-19-3928UEO W Auto Differential panel - BloodCOMPLETE BLOOD COUNT AND DIFFERENTIAL Lab Routine Iron deficiency anemia secondary to blood loss (ch ronic) Vitamin D deficiency Malaise and fatigue Expected: 04/02/2024 (Approximate), Expires: 01/01/2025[facility] ClinicComment on above:Expected: 04/02/2024 (Approximate), Expires: 01/01/2025Start: 04-02-2024 End: 46-95-3572Xyklieaiv (Vitamin B12) [Mass/volume] in Serum or PlasmaVITAMIN B12 Lab Routine Iron deficiency anemia secondary to blood loss (chronic) Vitamin D deficiency Malaise and fatigue Expected: 04/02/2024 (Approximate), Expires: 01/01/2025[facility] ClinicComment on above:Expected: 04/02/2024 (Approximate), Expires: 01/01/2025Start: 04-02-2024 End: 94-76-4128Lxnaixlouygrn metabolic 2000 panel - Serum or PlasmaCOMPREHENSIVE METABOLIC PANEL Lab Routine Iron deficiency anemia secondary to blood loss (chronic) Vitamin D deficiency Malaise and fatigue Expected: 04/02/2024 (Approximate), Expires: 01/01/2025[facility] ClinicComment on above:Expected: 04/02/2024 (Approximate), Expires: 01/01/2025Start: 04-02-2024 End: 41-52-8820Itjbshsx [Mass/volume] in Serum or PlasmaFERRITIN Lab Routine Iron deficiency anemia secondary to blood loss (chronic) Vitamin D deficiency M alaise and fatigue Expected: 04/02/2024 (Approximate), Expires: 01/01/2025 [facility] CenterComment [facility]:Expected: 04/02/2024 (Approximate), Expires: 01/01/2025Start: 04-02-2024 End: 95-85-3828Ydegst [Mass/volume] in Serum or PlasmaFOLATE, SERUM Lab Routine Iron deficiency anemia secondary to blood loss (chronic) Vitamin D deficiency Malaise and fatigue Expected: 04/02/2024 (Approximate), Expires: 01/01/2025 [facility] CenterComment on above:Expected: 04/02/2024 (Approximate), Expires: 01/01/2025Start: 04-02-2024 End: 38-47-9401Sxtv and Iron binding capacity panel - Serum or PlasmaIRON AND TIBC Lab Routine Iron deficiency anemia secondary to blood loss (chronic) Vitamin D deficiency Malaise and fatigue Expected: 04/02/2024 (Approximate), Expires: 01/01/2025[facility] CenterComment on above:Expected: 04/02/2024 (Approximate), Expires: 01/01/2025Start: 04-02-2024 End: 65-02-8166Ccxryelggxn [Units/volume] in Serum or PlasmaTHYROID STIMULATING HORMONE Lab Routine Iron deficiency anemia secondary to blood loss (chronic) Vit vogel D deficiency Malaise and fatigue Expected: 04/02/2024 (Approximate), Expires: 07/02/2024[facility] Work Phone: Comment on above:Expected: 04/02/2024 (Approximate), Expires: 07/02/2024Start: 01-05-2024 End: 05-34-2097NXJ W Auto Differential panel - BloodCOMPLETE BLOOD COUNT AND DIFFERENTIAL Lab Routine Iron deficiency anemia secondary to blood loss (ch ronic) Vitamin D deficiency Malaise and fatigue Expected: 01/05/2024 (Approximate), Expires: 01/01/2025[facility] ClinicComment on above:Expected: 01/05/2024 (Approximate), Expires: 01/01/2025Start: 01-05-2024 End: 18-56-6428Tnkcyjkabagsg metabolic 2000 panel - Serum or PlasmaCOMPREHENSIVE METABOLIC PANEL Lab Routine Iron deficiency anemia secondary to blood loss (chronic) Vitamin D deficiency Malaise and fatigue Expected: 01/05/2024 (Approximate), Expires: 5[facility] ClinicComment on above:Expected: 01/05/2024 (Approximate), Expires: 01/01/2025Start: 01-02-2024 End: 79-73-8645Zxipxm-up syelcyuvn51/04/2024 1:45 PM EDT Visit (SP) Office Hematology/Oncology [address] [place], [place] [phone] Kristofer Calix MD [address] [facility] [place] [address] 8 WEEK FOLLOW UPHematology/OncologyComment on above:8 WEEK FOLLOW UPStart: 01-02-2024 End: 05-45-0119Uznzkts encounter /04/2024 1:30 PM EDT Office Visit [facility] [address] [place] [address] 8 WEEK FOLLOW UPNortKalkaska Memorial Health Center LaboratoryComment on above:8 WEEK FOLLOW UPStart: 36-10-9101Agltm-19 Vaccine ( season)Covid-19 Vaccine ( season)[facility]: 41-08-1598Noznz-19 Vaccine ( season)Covid-19 Vaccine ( season)[facility]: 42-36-0812Bbfhigjfr vaccinationAdena [facility] Start: 11-29-2023 End: 31-34-0979pfqqotbddv09/01/2024 1:30 PM EDT Infusion Center Hematology/Oncology [address] [facility] [place] [address] VENOFER 300Hematology/OncologyComment on above:VENOFER 300Start: 11-22-2023 End: 89-65-1225uyjztbcxop17/25/2024 1:30 PM EDT Infusion Center Hematology/Oncology [address] [facility] [place] [address] VENOFER 300Hematology/OncologyComment on above:VENOFER 300Start: 11-15-2023 End: 36-76-8899mxhwxoonat26/18/2024 1:30 PM EDT Infusion Center Hematology/Oncology [address] [place] [address] [place] [address] VENOFER 300Hematology/OncologyComment on above:VENOFER 300Start: 09-13-2023 End: 24-71-654312043429-tjhlsqezhnhpdn D3 [Mass/volume] in Serum or PlasmaVITAMIN D 25 HYDROXY Lab Routine Vitamin D deficiency 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) Expected: 09/13/2023 (Approximate), Expires: 12/13/2023[facility] Work Phone: Comment on above:Expected: 09/13/2023 (Approximate), Expires: 12/13/2023Start: 09-13-2023 End: 95-72-9062Exnorjs.ionized [Moles/volume] in BloodCALCIUM IONIZED BLOOD Lab Routine Vitamin D deficiency 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) Expected: 09/13/2023 (Approximate), Expires: 12/13/2023 [facility] Work Phone: Comment on above:Expected: 09/13/2023 (Approximate), Expires: 12/13/2023Start: 09-13-2023 End: 02-78-0235GBE W Auto Differential panel - BloodCBC + DIFF Lab Routine Vitamin D deficiency 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) Expected: 09/13/2023 (Approximate), Expires: 06/15/2024[facility] Work Phone: Comment on above:Expected: 09/13/2023 (Approximate), Expires: 06/15/2024Start: 09-13-2023 End: 92-95-1950Ywincjxgl (Vitamin B12) [Mass/volume] in Serum or PlasmaVITAMIN B12 BLOOD Lab Routine Vitamin D deficiency 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) Expected: 09/13/2023 (Approximate), Expires: 06/15/2024[facility] Work Phone: Comment on above:Expected: 09/13/2023 (Approximate), Expires: 06/15/2024Start: 09-13-2023 End: 98-87-4818Gixdonrknnpng metabolic 2000 panel - Serum or PlasmaCOMP METABOLIC PANEL Lab Routine Vitamin D deficiency 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) Expected: 09/13/2023 (Approximate), Expires: 06/15/2024[facility] Work Phone: Comment on above:Expected: 09/13/2023 (Approximate), Expires: 06/15/2024Start: 09-13-2023 End: 80-77-5158Donnljyg [Mass/volume] in Serum or PlasmaFERRITIN BLD Lab Routine Vitamin D deficiency 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) Expected: 09/13/2023 (Approximate), Expires: 06/15/2024[facility] Work Phone: Comment on above:Expected: 09/13/2023 (Approximate), Expires: 06/15/2024Start: 09-13-2023 End: 78-70-0343Yutxoa [Mass/volume] in Serum or PlasmaFOLATE SERUM Lab Routine Vitamin D deficiency 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) Expected: 09/13/2023 (Approximate), Expires: 06/15/2024[facility] Work Phone: Comment on above:Expected: 09/13/2023 (Approximate), Expires: 06/15/2024Start: 09-13-2023 End: 58-50-7952Tgdc and Iron binding capacity panel - Serum or PlasmaIRON + TIBC Lab Routine Vitamin D deficiency 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) Expected: 09/13/2023 (Approximate), Expires: 06/15/2024 [facility] Work Phone: Comment on above:Expected: 09/13/2023 (Approximate), Expires: 06/15/2024Start: 09-13-2023 End: 44-22-5276Wygtmgsohm.intact [Mass/volume] in Serum or PlasmaPTH INTACT BLD Lab Routine Vitamin D deficiency 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) Expected: 09/13/2023 (Approximate), Expires: 12/13/2023 [facility] Work Phone: Comment on above:Expected: 09/13/2023 (Approximate), Expires: 12/13/2023Start: 06-15-2023 End: 336448-yjvgirrgadgxzc D3 [Mass/volume] in Serum or PlasmaVITAMIN D 25 HYDROXY Lab Routine Vitamin D deficiency Expected: 06/15/2023 (Approximate), Expires: 09/14/2023[facility] Work Phone: Comment on above:Expected: 06/15/2023 (Approximate), Expires: 09/14/2023Start: 06-15-2023 End: 87-90-7028Yobhysu.ionized [Moles/volume] in BloodCALCIUM IONIZED BLOOD Lab Routine Vitamin D deficiency Hypercalcemia Expected: 06/15/2023 (Approximate), Expires: 09/14/2023[facility] Work Phone: Comment on above:Expected: 06/15/2023 (Approximate), Expires: 09/14/2023Start: 06-15-2023 End: 28-95-4835WXK W Auto Differential panel - BloodCBC + DIFF Lab Routine Iron deficiency anemia secondary to blood loss (chronic) Expected: 06/15/2023 (Approximate), Expires: 06/12/2024[facility] Work Phone: Comment on above:Expected: 06/15/2023 (Approximate), Expires: 06/12/2024Start: 06-15-2023 End: 88-94-6636Hrtwzzgio (Vitamin B12) [Mass/volume] in Serum or PlasmaVITAMIN B12 BLOOD Lab Routine Iron deficiency anemia secondary to blood loss (chronic) Expected: 06/15/2023 (Approximate), Expires: 06/12/2024[facility] Work Phone: Comment on above:Expected: 06/15/2023 (Approximate), Expires: 06/12/2024Start: 06-15-2023 End: 36-45-4524Awsnvphzmjbaz metabolic 2000 panel - Serum or PlasmaCOMP METABOLIC PANEL Lab Routine Iron deficiency anemia secondary to blood loss (chronic) Expected:06/15/2023 (Approximate), Expires: 06/12/2024[facility] Work Phone: Comment on above:Expected: 06/15/2023 (Approximate), Expires: 06/12/2024Start: 06-15-2023 End: 21-73-3151Szrzpqwq [Mass/volume] in Serum or PlasmaFERRITIN BLD Lab Routine Iron deficiency anemia secondary to blood loss (chronic) Expected: 06/15/2023 (Approximate), Expires: 06/12/2024[facility] Work Phone: Comment on above:Expected: 06/15/2023 (Approximate), Expires: 06/12/2024Start: 06-15-2023 End: 16-74-4833Qhnxpi [Mass/volume] in Serum or PlasmaFOLATE SERUM Lab Routine Iron deficiency anemia secondary to blood loss (chronic) Expected: 06/15/2023 (Approximate), Expires: 06/12/2024[facility] Work Phone: Comment on above:Expected: 06/15/2023 (Approximate), Expires: 06/12/2024Start: 06-15-2023 End: 95-89-7824Yykg and Iron binding capacity panel - Serum or PlasmaIRON + TIBC Lab Routine Iron deficiency anemia secondary to blood loss (chronic) Expected: 06/15/2023 (Approximate), Expires: 06/12/2024[facility] Work Phone: Comment on above:Expected: 06/15/2023 (Approximate), Expires: 06/12/2024Start: 06-15-2023 End: 95-37-3946SUS, INTACT (WITHOUT CALCIUM)PTH, INTACT (WITHOUT CALCIUM) Lab Routine Vitamin D deficiency Hypercalcemia Expected: 06/15/2023 (Approximate), Expires: 09/14/2023[facility] Work Phone: Comment on above:Expected: 06/15/2023 (Approximate), Expires: 09/14/2023Start: 06-15-2023 End: 59-43-6733Xjgveahjerb [Units/volume] in Serum or PlasmaTSH BLD Lab Routine Malaise and fatigue Expected: 06/15/2023 (Approximate), Expires: 09/14/2023 [facility] Work Phone: Comment on above:Expected: 06/15/2023 (Approximate), Expires: 09/14/2023Start: 06-14-2023 End: 566843-yjftigkbovbexe D3 [Mass/volume] in Serum or PlasmaVITAMIN D 25 HYDROXY Lab Routine Hypercalcemia Vitamin D deficiency Expected: 06/14/2023 (Approximate), Expires: 09/13/2023[facility] Work Phone: Comment on above:Expected: 06/14/2023 (Approximate), Expires: 09/13/2023Start: 06-14-2023 End: 51-63-3000Virbmwx.ionized [Moles/volume] in BloodCALCIUM IONIZED BLOOD Lab Routine Hypercalcemia Vitamin D deficiency Expected: 06/14/2023 (Approximate), Expires: 09/13/2023[facility] Work Phone: Comment on above:Expected: 06/14/2023 (Approximate), Expires: 09/13/2023Start: 06-14-2023 End: 48-29-9774HHQ, INTACT (WITHOUT CALCIUM)PTH, INTACT (WITHOUT CALCIUM) Lab Routine Hypercalcemia Vitamin D deficiency Expected: 06/14/2023 (Approximate), Expires: 09/13/2023[facility] Work Phone: Comment on above:Expected: 06/14/2023 (Approximate), Expires: 09/13/2023Start: 06-14-2023 End: 67-38-5615Dzgwakhnyhw [Units/volume] in Serum or PlasmaTSH BLD Lab Routine Hypercalcemia Malaise and fatigue Expected: 06/14/2023 (Approximate), Expires: [address] [place] [address] Work Phone: Comment on above:Expected: 06/14/2023 (Approximate), Expires: 09/13/2023Start: 05-14-2023 End: 48-62-9663NWK W Auto Differential panel - BloodCBC + DIFF Lab Routine Primary hypercoagulable state (HCC) Iron deficiency anemia secondary to blood loss (chronic) Vitamin D deficiency CVA, old, 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) Expected: 05/14/2023 (Approximate), Expires: 03/19/2024[facility] Work Phone: Comment on above:Expected: 05/14/2023 (Approximate), Expires: 03/19/2024Start: 05-14-2023 End: 74-24-6977Nslpmlmol (Vitamin B12) [Mass/volume] in Serum or PlasmaVITAMIN B12 BLOOD Lab Routine Primary hypercoagulable state (HCC) Iron deficiency anemia secondary to blood loss (chronic) Vitamin D deficiency CVA, old, 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) Expected: 05/14/2023 (Approximate), Expires: 03/19/2024[facility] Work Phone: Comment on above:Expected: 05/14/2023 (Approximate), Expires: 03/19/2024Start: 05-14-2023 End: 47-19-6569Ouubxbemqwqlv metabolic 2000 panel - Serum or PlasmaCOMP METABOLIC PANEL Lab Routine Primary hypercoagulable state (HCC) Iron deficiency anemia secondary to blood loss (chronic) Vitamin D deficiency CVA, old, 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) Expected: 05/14/2023 (Approximate), Expires: 03/19/2024[facility] Work Phone: Comment on above:Expected: 05/14/2023 (Approximate), Expires: 03/19/2024Start: 05-14-2023 End: 71-06-8170Faglsiak [Mass/volume] in Serum or PlasmaFERRITIN BLD Lab Routine Primary hypercoagulable state (HCC) Iron deficiency anemia secondary to blood loss (chronic) Vitamin D deficiency CVA, old, 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) Expected: 05/14/2023 (Approximate), Expires: 03/19/2024[facility] Work Phone: Comment on above:Expected: 05/14/2023 (Approximate), Expires: 03/19/2024Start: 05-14-2023 End: 02-19-8690Rlwekq [Mass/volume] in Serum or PlasmaFOLATE SERUM Lab Routine Primary hypercoagulable state (HCC) Iron deficiency anemia secondary to blood loss (chronic) Vitamin D deficiency CVA, old, 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) Expected: 05/14/2023 (Approximate), Expires: 03/19/2024[facility] Work Phone: Comment on above:Expected: 05/14/2023 (Approximate), Expires: 03/19/2024Start: 05-14-2023 End: 15-43-4495Zybb and Iron binding capacity panel - Serum or PlasmaIRON + TIBC Lab Routine Primary hypercoagulable state (HCC) Iron deficiency anemia secondary to blood loss (chronic) Vitamin D deficiency CVA, old, 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) Expected: 05/14/2023 (Approximate), Expires: 03/19/2024[facility] Work Phone: Comment on above:Expected: 05/14/2023 (Approximate), Expires: 03/19/2024Start: 33-28-0611Zkxikhdryi Health ScreeningBehavioral Health ScreeningSt. Mary's Medical Centertart: 25-58-5608Rpfrnxusto AssessmentDepression AssessmentSt. Mary's Medical Centertart: 02-16-2023 End: 965319-wakvttvbjhluns D3 [Mass/volume] in Serum or PlasmaVITAMIN D 25 HYDROXY Lab Routine Primary hypercoagulable state (HCC) Iron deficiency anemia secondary to blood loss (chronic) Vitamin D deficiency Expected: 02/16/2023 (Approximate), Expires: 04/18/2023[facility] Work Phone: Comment on above:Expected: 02/16/2023 (Approximate), Expires: 04/18/2023Start: 02-16-2023 End: 98-82-0891MIN W Auto Differential panel - BloodCBC + DIFF Lab Routine Primary hypercoagulable state (HCC) Iron deficiency anemia secondary to blood loss (chronic) Expected: 02/16/2023 (Approximate), Expires: 12/23/2023[facility] Work Phone: Comment on above:Expected: 02/16/2023 (Approximate), Expires: 12/23/2023Start: 02-16-2023 End: 99-50-8551Kchawegea (Vitamin B12) [Mass/volume] in Serum or PlasmaVITAMIN B12 BLOOD Lab Routine Primary hypercoagulable state (HCC) Iron deficiency anemia secondary to blood loss (chronic) Expected: 02/16/2023 (Approximate), Expires: 12/23/2023[facility] Work Phone: Comment on above:Expected: 02/16/2023 (Approximate), Expires: 12/23/2023Start: 02-16-2023 End: 44-31-7848Mthvktgpcosqp metabolic 2000 panel - Serum or PlasmaCOMP METABOLIC PANEL Lab Routine Primary hypercoagulable state (HCC) Iron deficiency anemia secondary to blood loss (chronic) Expected: 02/16/2023 (Approximate), Expires: 12/23/2023[facility] Work Phone: Comment on above:Expected: 02/16/2023 (Approximate), Expires: 12/23/2023Start: 02-16-2023 End: 22-21-9398Ulmwgdcd [Mass/volume] in Serum or PlasmaFERRITIN BLD Lab Routine Primary hypercoagulable state (HCC) Iron deficiency anemia secondary to blood loss (chronic) Expected: 02/16/2023 (Approximate), Expires: 12/23/2023[facility] Work Phone: Comment on above:Expected: 02/16/2023 (Approximate), Expires: 12/23/2023Start: 02-16-2023 End: 16-76-2293Jeywwo [Mass/volume] in Serum or PlasmaFOLATE SERUM Lab Routine Primary hypercoagulable state (HCC) Iron deficiency anemia secondary to blood loss (chronic) Expected: 02/16/2023 (Approximate), Expires: 12/23/2023[facility] Work Phone: Comment on above:Expected: 02/16/2023 (Approximate), Expires: 12/23/2023Start: 02-16-2023 End: 49-49-2439Yefw and Iron binding capacity panel - Serum or PlasmaIRON + TIBC Lab Routine Primary hypercoagulable state (HCC) Iron deficiency anemia secondary to blood loss (chronic) Expected: 02/16/2023 (Approximate), Expires: 12/23/2023[facility] Work Phone: Comment on above:Expected: 02/16/2023 (Approximate), Expires: 12/23/2023Start: 59-06-5980Lmunp-19 Vaccine ()Covid- 19 Vaccine ()[facility]: 51-94-5578Boezuyiii vaccinationSt. Mary's Medical Centertart: 39-13-9682SVB TESTINGPAP TESTINGSt. Mary's Medical Centertart: 78-65-8997Ssosmnjbp for malignant neoplasm of cervixPap Testing [facility]: 11-28-2022 End: 49-38-2276KHA W Auto Differential panel - BloodCBC + DIFF Lab Routine Primary hypercoagulable state (HCC) CVA, old, speech/language deficit Cerebral hyponatremia Expected: 11/28/2022 (Approximate), Expires: 10/04/2023[facility] Work Phone: Comment on above:Expected: 11/28/2022 (Approximate), Expires: 10/04/2023Start: 11-28-2022 End: 02-97-0712Mafeshngv (Vitamin B12) [Mass/volume] in Serum or PlasmaVITAMIN B12 BLOOD Lab Routine Primary hypercoagulable state (HCC) CVA, old, speech/language deficitCerebral hyponatremia Expected: 11/28/2022 (Approximate), Expires: 06/06/[address] [place] [address] Work Phone: Comment on above:Expected: 11/28/2022 (Approximate), Expires: 10/04/2023Start: 11-28-2022 End: 82-65-1264Fdmzhknfzinig metabolic 2000 panel - Serum or PlasmaCOMP METABOLIC PANEL Lab Routine Primary hypercoagulable state (HCC) CVA, old, speech/language deficit Cerebral hyponatremia Expected: 11/28/2022 (Approximate), Expires: [address] [place] [address] Work Phone: Comment on above:Expected: 11/28/2022 (Approximate), Expires: 10/04/2023Start: 11-28-2022 End: 98-61-0231Mpxjqsqr [Mass/volume] in Serum or PlasmaFERRITIN BLD Lab Routine Primary hypercoagulable state (HCC) CVA, old, speech/language deficit Cerebral hyponatremia Expected: 11/28/2022 (Approximate), Expires: 10/04/2023[facility] Work Phone: Comment on above:Expected: 11/28/2022 (Approximate), Expires: 10/04/2023Start: 11-28-2022 End: 47-95-3005Pskmnh [Mass/volume] in Serum or PlasmaFOLATE SERUM Lab Routine Primary hypercoagulable state (HCC) CVA, old, speech/language deficit Cerebral hyponatremia Expected: 11/28/2022 (Approximate), Expires: 10/04/2023[facility] Work Phone: Comment on above:Expected: 11/28/2022 (Approximate), Expires: 10/04/2023Start: 11-28-2022 End: 61-48-7810Yeto and Iron binding capacity panel - Serum or PlasmaIRON + TIBC Lab Routine Primary hypercoagulable state (HCC) CVA, old, speech/language deficit Cerebral hyponatremia Expected: 11/28/2022 (Approximate), Expires: [address] [place] [address] Work Phone: Comment on above:Expected: 11/28/2022 (Approximate), Expires: 10/04/2023Start: 09-21-2022 End: 09-71-2035YRN W Auto Differential panel - BloodCBC + DIFF Lab Routine Primary hypercoagulable state (HCC) 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, old, speech/language deficit Expected: 09/21/2022 (Approximate), Expires: 07/28/2023[facility] Work Phone: Comment on above:Expected: 09/21/2022 (Approximate), Expires: 07/28/2023Start: 09-21-2022 End: 42-91-2864Itqkzrzqq (Vitamin B12) [Mass/volume] in Serum or PlasmaVITAMIN B12 BLOOD Lab Routine Primary hypercoagulable state (HCC) 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, old, speech/language deficit Expected: 09/21/2022 (Approximate), Expires: 07/28/2023[facility] Work Phone: Comment on above:Expected: 09/21/2022 (Approximate), Expires: 07/28/2023Start: 09-21-2022 End: 42-67-7546Lyajiqalfklvp metabolic 2000 panel - Serum or PlasmaCOMP METABOLIC PANEL Lab Routine Primary hypercoagulable state (HCC) 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, old, speech/language deficit Expected: 09/21/2022 (Approximate), Expires: 07/28/2023[facility] Work Phone: Comment on above:Expected: 09/21/2022 (Approximate), Expires: 07/28/2023Start: 09-21-2022 End: 98-20-2004Nguziwnk [Mass/volume] in Serum or PlasmaFERRITIN BLD Lab Routine Primary hypercoagulable state (HCC) 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, old, speech/language deficit Expected: 09/21/2022 (Approximate), Expires: 07/28/2023[facility] Work Phone: Comment on above:Expected: 09/21/2022 (Approximate), Expires: 07/28/2023Start: 09-21-2022 End: 65-19-6013Rpboow [Mass/volume] in Serum or PlasmaFOLATE SERUM Lab Routine Primary hypercoagulable state (HCC) 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, old, speech/language deficit Expected: 09/21/2022 (Approximate), Expires: 07/28/2023[facility] Work Phone: Comment on above:Expected: 09/21/2022 (Approximate), Expires: 07/28/2023Start: 09-21-2022 End: 46-38-9421Tzhh and Iron binding capacity panel - Serum or PlasmaIRON + TIBC Lab Routine Primary hypercoagulable state (HCC) 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: 01-30-2022 End: 49-15-5906Korfofsu [Mass/volume] in Serum or PlasmaFERRITIN BLD Lab Routine Anemia, unspecified type Expected: 01/30/2022, Expires: 01/30/2023[facility] Work Phone: Comment on above:Expected: 01/30/2022, Expires: 01/30/2023Start: 01-30-2022 End: 95-74-3137Tarc and Iron binding capacity panel - Serum or PlasmaIRON + TIBC Lab Routine Anemia, unspecified type Expected: 01/30/2022, Expires: 01/30/2023 [facility] Work Phone: Comment on above:Expected: 01/30/2022, Expires: 01/30/2023Start: 19-27-7519Mlfljxqft vaccinationSt. Mary's Medical Centertart: 12-29-2021 End: 63-96-3713Ubuhinl encounter eoynrnjol11/01/2022 [facility] MedStart: 59-24-6260TSLWGMHRTL ASSESSMENTDEPRESSION ASSESSMENTSt. Mary's Medical Centertart: 85-29-3031Zmfkv depression screening assessmentDEPRESSION SCREENINGSt. Mary's Medical Centertart: 12-04-2020 Screening for malignant neoplasm of cervixCervical Cancer ScreeningSt. Mary's Medical Centertart: 55-37-3731Mamlddez screenDiabetes screenVIRGINIA HOS[facility]ITAL CENTER Start: 38-15-5080GBT TESTINGHPV TESTINGSt. Mary's Medical Centertart: 10-22-2015 Screening for malignant neoplasm of cervixVIRGINIA HOSPITAL CENTERStart: 35-97-0231XUM Vaccine (1 - 3-dose SCDM series)HPV Vaccine (1 - 3-dose SCDM series)[facility]: 67-71-6247BQE Vaccines (1 - 3-dose SCDM series)HPV Vaccines (1 - 3-dose SCDM series)[facility] SpringsStart: 65-43-0215Sldusoggx for malignant neoplasm of cervixPap smearVIRGINIA HOSPITAL CENTERStart: 2004 DTaP,Tdap and Td Vaccines (1 - Tdap)DTaP,Tdap and Td Vaccines (1 - Tdap) [facility]: 40-76-9255Wowynkrwo B Vaccine (1 of 3 - 19+ 3-dose series)Hepatitis B Vaccine (1 of 3 - 19+ 3-dose series)[facility]: 94-22-2850Ybzgzowuq B Vaccines (1 of 3 - 19+ 3-dose series)Hepatitis B Vaccines (1 of 3 - 19+ 3-dose series)[facility] HealthcareStart: 58-01-2299Mvjja BMI Follow Up PlanAdult BMI Follow Up PlanUNC Health Johnstontart: 08-67-8253Vmbqy BMI ScreeningAdult BMI ScreeningUNC Health Johnstontart: 82-61-8994Xsquspy ScreeningAnxiety ScreeningSt. Mary's Medical Centertart: 89-05-3160Rngonanpej Screening Depression ScreeningSt. Mary's Medical Centertart: 93-59-6491AGMWFMCMD C SCREENING HEPATITIS C SCREENINGSt. Mary's Medical Centertart: 72-58-1765Yypllnkie C screeningVIRGINIA HOSPITAL CENTERStart: 44-38-3230NOK SCREENINGHIV SCREENINGAdena [facility] Medical [facility] Start: 63-94-6938PXC screeningHIV ScreeningSt. Mary's Medical Centertart: 1998 History of varicella vaccinationVaricella Vaccines (1 of 2 - 13+ 2-dose series) [facility] SpringsStart: 53-29-2170Jhcznnbxoo ScreenDepression ScreenBON [facility] Centerart: 85-71-7445Ngpbuzuzeh ScreeningDepression ScreeningProThe [facility] Medical Centertart: 48-03-0404Tybjfqn ScreeningTobacco ScreeningUNC Health Johnstontart: 23-91-9275QDbX/Tdap/Td Vaccines (1 - Tdap)DTaP/Tdap/Td Vaccines (1 - Tdap)[facility] SpringsStart: 84-10-0562CGLXL-19 VACCINE (#1)COVID-19 VACCINE (#1)[facility]: 65-86-7273QWBLH-19 VACCINE (1)COVID-19 VACCINE (1) [facility]: 75-90-6748RHO Vaccines (1 of 1 - Standard series)MMR Vaccines (1 of 1 - Standard series)[facility] SpringsStart: 14-39-7137Aidjrcxrt vaccine (1 of 2 - 2-dose childhood series)Varicella vaccine (1 of 2 - 2-dose childhood series)[facility]: 83-63-2866YZTCF-19 Vaccine (#1) COVID-19 Vaccine (#1)[facility]: 16-94-0885YUYLXRTJI B (1 of 3 - 3-dose series)HEPATITIS B (1 of 3 - 3-dose series)[facility]: 05-40-0180Sgpfkqxae B Vaccine (1 of 3 - 3-dose series)Hepatitis B Vaccine (1 of 3 - 3-dose series)[facility] End: 46-77-8413Diafi Fetoprotein, [facility]aternalB[facility] Work Phone: comment on above:Once for 1 Occurrences starting 11/21/2021 until 11/21/2021 End: 85-86-2637Igezlsmvchr Ab, HEp-2 Substrate, S (NASEEM by IFA)Antinuclear Ab, HEp-2 Substrate, S (NASEEM by IFA) Lab Routine Antiphospholipid syndrome Antiphospholipid syndrome complicating , antepartum History of CVA (cerebrovascular accident) 1 Occurrences starting 02/16/2025 until 02/16/2026 [facility] Work Phone: comment on above:1 Occurrences starting 02/16/2025 until 6Bacteria identified in Urine by CultureUrine culture Microbiology Routine Missed menses Ordered: 04/04/2024[facility] HealthcareComment on above:Ordered: 04/04/2024acteria identified in Urine by CultureUrine culture Microbiology Routine Missed menses Ordered: 10/02/2024[facility] HealthcareComment on above:Ordered: 10/02/2024 End: 08-18-5432BXA W Auto Differential panel - BloodCBC + DIFF Lab Routine Primary hypercoagulable state (HCC) CVA, old, 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[facility]) Every 2 months for 6 Occurrences starting 01/30/2022 until 01/30/2023[facility] Work Phone: Comment on above:Every 2 months for 6 Occurrences starting 01/30/2022 until 3CBC W Auto Differential panel - BloodCBC and differential Lab Routine Missed menses , unspecified gestational age Ordered: 04/04/2024[facility] HealthcareComment on above:Ordered: 4CBC W Auto Differential panel - BloodCBC and differential Lab Routine Missed menses , unspecified gestational age Ordered: 10/02/2024[facility] HealthcareComment on above:Ordered: 10/02/2024BC W Auto Differential panel - BloodCBC and differential Lab Routine 28 weeks gestation of ([facility]) Ordered: 02/09/2025[facility] Work Phone: comment on above:Ordered: 02/09/2025HLAMYDIA TRACHOMATIS (GENITO/STI)CHLAMYDIA TRACHOMATIS (GENITO/STI) Lab Routine Vaginal bleeding Vaginal discharge Ordered: 06/23/2024[facility] HealthcareComment on above: Ordered: 06/23/2024HLAMYDIA TRACHOMATIS (GENITO/STI)CHLAMYDIA TRACHOMATIS (GENITO/STI) Lab Routine Vaginal discharge Ordered: 11/20/2024[facility] Healthcare Comment on above:Ordered: 11/20/2024 End: 84-02-1568Chikdasgmd profile (C3 AND C4)Complement profile (C3 AND C4) Lab Routine Antiphospholipid syndrome Antiphospholipid syndrome complicating , antepartum History of CVA (cerebrovascular accident) 1 Occurrences starting 02/16/2025 until 02/16/2026[facility] SystemComment on above:1 Occurrences starting 02/16/2025 until 02/16/2026 End: 59-30-5791Mysouaewrffam metabolic 2000 panel - Serum or PlasmaCOMP METABOLIC PANEL Lab Routine Primary hypercoagulable state (HCC) CVA, old, 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) Every 2 months for 6 Occurrences starting 01/30/2022 until 01/30/2023[facility] Work Phone: Comment on above:Every 2 months for 6 Occurrences starting 01/30/2022 until 01/30/2023 End: 16-79-7700WGW double-stranded (dsDNA) Abs by Crithidia luciliae IFADNA double-stranded (dsDNA) Abs by Crithidia luciliae IFA Lab Routine Antiphospholipid syndrome Antiphospholipid syndrome complicating , antepartum History of CVA (cerebrovascular accident) 1 Occurrences starting 02/16/2025 until 02/16/2026[facility] SystemComment on above:1 Occurrences starting 02/16/2025 until 02/16/2026 End: 74-93-9327YPG PanelENA Panel Lab Routine Antiphospholipid syndrome Antiphospholipid syndrome complicating , antepartum History of CVA (cerebrovascular accident) 1 Occurrences starting 02/16/2025 until 02/16/2026 [facility] SystemComment on above:1 Occurrences starting 02/16/2025 until 02/16/2026Hemoglobin A1c/Hemoglobin.total in BloodHemoglobin A1c Lab Routine Missed menses , unspecified gestational age Ordered: 04/04/2024[facility] HealthcareComment on above:Ordered: 04/04/2024Hemoglobin A1c/Hemoglobin.total in BloodHemoglobin A1c Lab Routine Missed menses , unspecified gestational age Ordered: 10/02/2024[facility] HealthcareComment on above:Ordered: 10/02/2024Hepatitis B virus surface Ag [Presence] in Serum or Plasma by ImmunoassayHepatitis B surface antigen Lab Routine Missed menses , unspecified gestational age Ordered: 04/04/2024[facility] HealthcareComment on above: Ordered: 04/04/2024Hepatitis B virus surface Ag [Presence] in Serum or Plasma by ImmunoassayHepatitis B surface antigen Lab Routine Missed menses , unspecified gestational age Ordered: 10/02/2024[facility] HealthcareComment on above: Ordered: 10/02/2024Hepatitis C virus Ab [Presence] in Serum or Plasma by ImmunoassayHepatitis C antibody Lab Routine Missed menses , unspecified gestational age Ordered: 04/04/2024[facility] HealthcareComment on above:Ordered: 04/04/2024Hepatitis C virus Ab [Presence] in Serum or Plasma by Immunoassay Hepatitis C antibody Lab Routine Missed menses , unspecified gestational age Ordered: 10/02/2024[facility] HealthcareComment on above:Ordered: 10/02/2024HIV-1/HIV-2 antigen/antibody combination immunoassayHIV-1 and HIV-2 antibodies Lab Routine Missed menses , unspecified gestational age Ordered: 04/04/2024[facility] HealthcareComment on above:Ordered: 04/04/2024 HIV-1/HIV-2 antigen/antibody combination immunoassayHIV-1 and HIV-2 antibodies Lab Routine Missed menses , unspecified gestational age Ordered: 10/02/2024[facility] HealthcareComment on above:Ordered: 10/02/2024Neisseria gonorrhoeae DNA [Presence] in Unspecified specimen by LELO with probe detection Neisseria gonorrhea DNA probe, direct Lab Routine Vaginal bleeding Vaginal discharge Ordered: 06/23/2024[facility] HealthcareComment on above:Ordered: 06/23/2024 Neisseria gonorrhoeae DNA [Presence] in Unspecified specimen by LELO with probe detectionNeisseria gonorrhea DNA probe, direct Lab Routine Vaginal discharge Ordered: 11/20/2024[facility] HealthcareComment on above:Ordered: 11/20/2024Reagin Ab [Presence] in Serum by RPRRPR Lab Routine Missed menses , unspecified gestational age Ordered: 04/04/2024[facility] HealthcareComment on above:Ordered: 4Reagin Ab [Presence] in Serum by RPRRPR Lab Routine Missed menses , unspecified gestational age Ordered: 10/02/2024[facility] HealthcareComment on above:Ordered: 10/02/2024Rubella antibody, IgGRubella antibody, IgG Lab Routine Missed menses , unspecified gestational age Ordered: 04/04/2024 [facility] HealthcareComment on above:Ordered: 04/04/2024ubella antibody, IgGRubella antibody, IgG Lab Routine Missed menses , unspecified gestational age Ordered: 10/02/2024[facility] HealthcareComment on above:Ordered: 10/02/2024 SURESWAB(R) ADVANCED VAGINITIS PLUS, TMASURESWAB(R) ADVANCED VAGINITIS PLUS, TMA Pathology and Cytology Routine Vaginal bleeding Vaginal discharge Ordered: 06/23/2024[facility] Work Phone: comment on above:Ordered: 06/23/2024SURESWAB(R) ADVANCED VAGINITIS PLUS, TMASURESWAB(R) ADVANCED VAGINITIS PLUS, TMA Pathology and Cytology Routine Vaginal discharge Ordered: 11/20/2024[facility] Work Phone: comment on above:Ordered: 11/20/2024Thyrotropin [Units/volume] in Serum or PlasmaTSH Lab Routine Hypothyroidism (acquired) ([facility]) Ordered: 04/04/2024[facility] HealthcareComment on above:Ordered: 04/04/2024 Thyrotropin [Units/volume] in Serum or PlasmaTSH Lab Routine History of thyroid disease Ordered: 06/02/2024[facility] Work Phone: comjght on above:Ordered: 06/02/2024Thyrotropin [Units/volume] in Serum or PlasmaTSH Lab Routine Thyroid disease ([facility]) Ordered: 10/02/2024[facility] HealthcareComment on above:Ordered: 10/02/2024 Thyrotropin [Units/volume] in Serum or PlasmaTSH Lab Routine Second trimester ([facility]) Thyroid disease Ordered: 12/11/2024[facility] Work Phone: comlfce on above:Ordered: 12/11/2024UA DIP, URINE (POC)UA DIP, URINE (POC) Lab Routine Infective urethritis Ordered: 08/01/2021 [facility] Work Phone: Comment on above:Ordered: 08/01/2021Vitamin D 1,25 dihydroxyVitamin D 1,25 dihydroxy Lab Routine Low vitamin D level Ordered: 04/04/2024[facility] HealthcareComment on above:Ordered: 04/04/2024 End: 73-00-3379Usaevsd D 25 hydroxyVitamin D 25 hydroxy Lab Routine Insulin controlled gestational diabetes mellitus (GDM) in second trimester 1 Occurrences starting 12/03/2024 until 12/03/2025[facility] Work Phone: comment on above:1 Occurrences starting 12/03/2024 until 12/03/2025[facility] Immunizations Immunization DateImmunizationNotesCare VjwiptjkJozwpmur75-51-6782hbzqznbzv virus vaccine, unspecified formulationKristofer Calix MD Work Phone: [facility] CenterIuhahr09-79-0689hhrihii toxoid, reduced diphtheria toxoid, and acellular pertussis vaccine, adsorbedMa Sand Work Phone: [facility] CenterNEGATED: Highlighted row has not occurred!45-26-7388kwjxnbfdt virus vaccine, unspecified formulationScott PRAVEEN [phone]-EojorKnox Community Hospital Primary CareNEGATED: Highlighted row has not occurred!38-69-1727zgwplhtud virus vaccine, unspecified formulationPERNELL LONGORIA [phone]-UneveKnox Community Hospital [facility] [place] Payers DatePayer CategoryPayerPolicy [id number] 2021Medicaid [place] [employer] [id number] 2020-Present [phone] [address] [place] [address] [id number] 2021Medicaid [id number] 2.16.840.1.939928.3.57[id number] 2.16.840.1.503384.3.57[id number] 2.16.840.1.438928.3.579.2.84664-63-0667Lyatasb4021362 2.16.840.1.892012.3.579.2.16106-05-1531Wotypmm4026650 2.16.840.1.552971.3.579.[id number] 2.16840.1.310512.3.579.2.70720-92-3453Mscgmvi3740163 2.16840.1.601051.3.579.2.62595-19-4044Hqnraaa7135131 2.16.840.1.027746.3.579.2.12601-78-6197Vkrtkpr2453602 2.16.840.1.928993.3.579.2.23908-83-4323Sjbchhx9216302 2.16.840.1.221923.3.579.2.07883-34-2021Qkwovmx3961965 2.16.840.1.060055.3.579.2.07880-59-9125Xghovbv2272074 2.16.840.1.218372.3.579.2.14612-88-1777Dgrqpap7327973 2.16.840.1.285003.3.579.2.94289-17-4888Ovgpwns9813821 2.16840.1.560564.3.579.2.47247-61-4699Cimvixg7708734 2.16840.1.789188.3.579.2.28644-01-6758Eqgyrsq3156313 2.16840.1.550965.3.579.2.71789-56-0665Vcaarrp1514557 2.16840.1.834485.3.579.2.60769-08-0280Tcwhbpr3358196 2.16840.1.360462.3.579.2.66943-90-8907Itpqfxe5582841 2.16840.1.054101.3.579.2.90171-85-7090Qrhwhbq1846426 2.840.1.603607.3.579.2.04894-96-8570Wkkjust0755952 2.840.1.130609.3.579.2.18843-81-6764Bexeaus8766606 2.840.1.342891.3.579.2.31501-42-8144Stzywae8895223 2.840.1.215436.3.579.2.34341-01-4561Amynjwl0403910 2.840.1.891845.3.579.2.05001-20-7003Unxuasy9121921 2.840.1.374853.3.579.2.25173-33-4270Aljdzyx8590529 2.16840.1.428887.3.579.2.18949-82-3348Uhvrpda5893362 2.16840.1.607022.3.579.2.24627-33-8231Otjdmix2267494 2.16840.1.156207.3.579.2.49584-17-4363Smgnyqi9921209 2.16840.1.572447.3.579.2.66542-99-2166Afbdwxb69077523 2.16840.1.311485.3.579.2.29980-33-9401Zpbbpkc59265684 2.16840.1.635430.3.579.2.47704-11-0372Remkssb87163211 2.16840.1.599784.3.579.2.46870-69-7340Xqkemxc46660733 2.16840.1.539207.3.579.2.33046-13-4333Tihkgeg39752779 2..1.448280.3.579.2.82319-30-4747Ncansyl64804565 2..1.170107.3.579.[id number] 2.840.1.475134.3.579.2.52896-61-5438Hslkcye54180691 2.0.1.924072.3.579.2.57748-49-9300Pdofhgo69003690 2.0.1.812206.3.579.2.[id number] 2..1.402699.3.579.2.50291-51-1991Wghpexx48315464 2.16840.1.547668.3.579.2.41848-53-4761Cxvlone76049098 2.16840.1.178102.3.579.2.84311-04-0524Rcsqeln62323890 2.16840.1.048219.3.579.2.08536-84-7289Tcwzrkf58633601 2.16840.1.595302.3.579.2.97277-08-2100Buochwb15064086 2.16840.1.797845.3.579.2.41346-80-1764Pzoaybt27791839 2.16840.1.601387.3.579.2.02575-64-4974Fujyrlr13071314 2.16840.1.424885.3.579.2.86230-34-4626Qfdlwhh48425417 2.840.1.247550.3.579.2.64613-11-3610Tftpzuq84180821 2.0.1.137448.3.579.2.07825-35-8427Hdynrik58769099 2.840.1.072535.3.579.2.89473-01-5844Wjfqyhd45929067 2.0.1.201118.3.579.2.45379-73-1816Qfnrwdg29187311 2.840.1.436682.3.579.2.65761-21-0835Torrjcf82937258 2.0.1.584378.3.579.2.15222-62-5755Jyqhdsj37826729 2.840.1.544289.3.579.2.68873-46-0369Zxtqsfl75312059 2.0.1.282421.3.579.2.47380-52-0672Hzleorc29487991 2.840.1.219246.3.579.2.33952-57-9996Ommoixx67436163 2.840.1.071948.3.579.2.53314-76-9239Uvmegpq39882049 2.840.1.644001.3.579.2.27407-81-1016Opfhlss23828119 2.16840.1.511130.3.579.2.95970-63-7257Vbjcbdo00332642 2.16840.1.543065.3.579.2.48134-18-2486Wwmkawj80185978 2.16840.1.354955.3.579.2.26913-62-9255Jeggqfr89316838 2.16840.1.069744.3.579.2.12528-35-6184Hryybeb54432772 2.16840.1.865258.3.579.2.12032-24-6190Eetfagj67655731 2.0.1.061316.3.579.2.13877-28-8252Hopusfn66646552 2.0.1.510361.3.579.2.86843-41-0601Fdmgleb57639881 2.840.1.446747.3.579.2.69214-19-8698Cuqbxif29148753 2.840.1.980102.3.579.2.63210-05-5231Uzysdue67170455 2.840.1.199147.3.579.2.89468-70-5863Hdlunws07527085 2.0.1.869316.3.579.2.60164-04-3330Cxbkarz27210378 2.840.1.192743.3.579.2.82117-79-9642Qrhemyh42786801 2.840.1.728427.3.579.2.19991-17-6145Axqzxwd28568360 2.16840.1.843950.3.579.2.26967-50-9331Niuftzt38588571 2.840.1.447987.3.579.2.59426-73-0859Pgjtyov01816859 2.16840.1.749303.3.579.2.50160-01-4078Dvtmgmi292129626 2.16840.1.579038.3.579.2.058230-25-6217Lyufvuo256512093 2.16840.1.876009.3.579.2.470702-94-1689Qiakkwk444606587 2.16840.1.253282.3.579.2.445741-70-9920Sspucep05317944 2.840.1.083552.3.579.2.40185-83-6699Dnkscnj42029760 2.840.1.658576.3.579.2.528473-75-8375Nupxwcf75163544 2.840.1.406176.3.579.2.946528-57-7317Uampzvd28803807 2.840.1.478891.3.579.2.516177-13-4015Kreayzi47193614 2.840.1.176704.3.579.2.508410-39-2032Ewwjogq92698064 2.840.1.173452.3.579.2.842197-63-8767Sepmujm41631460 2.840.1.293198.3.579.2.497764-68-2959Xcxwhaw81729856 2.840.1.437466.3.579.2.353325-12-2086Pnymohy89609142 2.840.1.569928.3.579.2.799746-72-0871Xpvigcu56376101 2.16840.1.299864.3.579.2.858508-25-2676Lnkungh08871887 2.16840.1.898214.3.579.2.338577-31-5846Fxhcqxy6291264 2.16.840.1.841775.3.579.2.914824-21-4708Acqnrke6441510 2.16840.1.826781.3.579.2.252842-61-4491Oimqnpk5222668 2.16840.1.351413.3.579.2.354728-43-8623Qzsyzls5127246 2.16840.1.173038.3.579.2.610889-24-8927Oommuzj6573247 2.0.1.687049.3.579.2.980841-35-8014Irytuqm0792916 2.840.1.664833.3.579.2.651529-44-4109Kkcghek344269206 2.840.1.916650.3.579.2.680663-60-5391Tobwseh837358095 2.840.1.062824.3.579.2.689068-28-7603Tgfyipk232014380 2.840.1.475001.3.579.2.378106-35-3178Opwzqol536254190 2.840.1.016162.3.579.2.024575-49-8524Zbgeoxs611388598 2.840.1.733805.3.579.2.544997-65-6396Tmlquzv848049117 2.16840.1.071389.3.579.2.392404-86-3600Hdribmy544408729 2.16840.1.624867.3.579.2.830163-26-5508Vexppol664997204 2.16840.1.266419.3.579.2.298000-73-7057Wcwn-frn24-28-4034UcvkdppH6552596505 80-05-5064Tocewje72567919862 1.2.840.627229.1.13.239.2.7.3.348974.315Unknown 9371539 2.16.840.1.343991.3.579.2.593 Social History DateTypeDetailFacilityStart: 09-10-2017 End: 78-42-1603Uqeyvls smoking status NHISNever smoked tobaccoAdena Fayette Medical Center Start: 09-10-2017 End: 27-15-5506Ooxihvb use and exposureSmokeless tobacco non-userSt. Mary's Medical Centertart: 08-01-2021 End: 77-38-5695Cddrejn intakeCurrent non-drinker of alcohol (finding)[facility] Centertart: 49-83-4725Bbh Assigned At BirthNot on fileSt. Mary's Medical Centertart: 07-22-2021 End: 68-22-8996Fbjorjcl to SARS-CoV-2 (event)Not sureSt. Mary's Medical Centertart: 05-28-2017 End: 52-98-1512Lmwhbij smoking statusNeverWooster Community Hospital Start: 06-10-2020 End: 12-00-5057Ulk Assigned At BirthFemalMcCullough-[facility] Start: 11-21-2021 End: 29-32-1475Krhbynm intakeEx-drinker (finding)[facility] [employer] Work Phone: start: 25-58-6055Cdxihfa SDOH Alcohol Comment occasionallyBON [employer] Phone: start: 36-32-4802UtxmkwmxHVA [employer] Phone: start: 06-10-2020 End: 58-36-0244Exgvnoe of Social functionSt. Mary's Medical Centertart: 04-04-2024 End: 08-97-7659Kpztmdnpg beverage intakeLifetime non-drinker (finding)[facility] HealthcareTobacco smoking status PAISUnknown if ever smokedOhiohealth Grove City [facility] Work Phone: Start: 11-27-2018 End: 23-08-8661IqvKhaota (finding)[facility] Hospital[facility]: 29-42-2119Kgk Assigned At [facility] Medical Equipment Procedure CodeEquipment CodeEquipment Original TextEquipment IdentifierDates [id number]: 10-30-2024 End: each by In Vitro route Daily Use to check FSBS four times daily [id number]: 10-30-2024 End: 86-85-7148Jbg a new needle with each injection ( 1- 5 times per day) [id number]: 12-03-2024 Functional Status IgydWfcdeiquooOmradbEjlyipbx93-71-7303Edxxfct Health Questionnaire 2 item (PHQ- 2) [Reported][facility] SpringsDegfkxcimw73-79-4741Cggextq Health Questionnaire 2 item (PHQ- 2) [Reported][facility] SpringsHklwtchgez81-08-7775Wxfzrkmyif StatusN/[facility] Primary Kzgx83-52-8774Mkzkyopdmr StatusN/[facility] Holny89-23-1502Qyzjnjlkrt StatusN/[facility] Aylh07-81-6249Afmhhpnngz StatusN/[facility] Ornw50-77-3882Kkmrcgshgi StatusN/[facility] 82-46-1063Gmrndmfazc StatusN/[facility] Primary Vjwv62-45-5079 Functional StatusN/[facility] Primary Nwno08-05-9325Papwgqppsq StatusN/[facility] Convenient Khvj17-19-8772Mmcvgafvel Status N/[facility] Primary Ojuz06-14-4604Fvklhyfwdn StatusN/[facility] Primary Ljgt28-77-8976Znfueotcbf StatusN/[facility] Primary Hnwa27-49-0858Qhcqqdkory StatusN/[facility] Clinical Notes 07-26-2019 to 03-11-2025 Note Date & JfjzOvlxPorimkmj58-83-7775 History of Present illness Narrative* Charles Cortes [...] age) multigravida 35+ Antiphospholipid syndrome Hypothyroid Stroke ([facility]) Gestational diabetes mellitus (GDM) in [...] Anemia Antiphospholipid antibody syndrome Cerebral infarction, unspecified ([facility]) 05/16/2019 Hypothyroid Migraine without aura and without status migrainosus, not intractable 09/12/2017 Stroke ([facility]) 2015 REVIEW OF SYSTEMS: Head and Neck: [...] Visit via Real-time Synchronous Audiovisual Provider Location: [facility] AT [address] [address] Patient Location: Patient's home Patient Location Trick Rodeo Rider: None Video Visit Consent Statement: I discussed [...] that there are some limitations compared to pkqp-ua-odpc evaluations. We elected to proceed. documented in this encounterWilson Street HospitalMor.sl [facility] Of JacksonDjxohk20-71-3860 NoteHNO ID: [id number] Author: KATHERINE NEGRETE APRN.RECEIVING MANAGER Service: ? Author Type: Nurse Practitioner Type: Progress Notes Filed: 03/02/2025 20:18 Note Text: NAME: Sanna Rendon CLINIC NO.: [id number] DATE OF SERVICE: March 02, 2025 (Penelope) [...] later in 2018. These were found in [place], [place]. 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 and patient increased Lovenox to 40 mg [...] She has a h (more content not included)...[place] [address]-27-2025 History of Present illness Narrative* Rosi Murray, MUSIC INTERN - 02/23/2025 9:00 AM EDT Reason for [...] Date Noted 32 weeks gestation of ([facility]) 11/28/2019 Abdominal pain 06/12/2023 Acute bronchitis due to infection 06/12/2023 Acute on chronic vesicular eczema of hands and feet 11/15/2023 Anemia complicating childbirth ([facility]) 01/16/2020 Anticoagulant long-term use 02/22/2020 Antiphospholipid antibody positive 09/10/2017 Antiphospholipid antibody syndrome ([facility]) 07/07/2019 Anxiety 06/12/2023 Blood pressure elevated without history of HTN 11/15/2023 BMI 37.0-37.9, adult 11/15/2023 Cerebral infarction, unspecified ([facility]) 05/16/2019 Cerebrovascular accident (CVA) due to stenosis of middle cerebral artery ([facility]) 02/22/2020 Cervicalgia 02/05/2019 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 ([facility]) 01/08/2020 Coagulation defect, unspecified ([facility]) 02/05/2019 Cold intolerance 11/15/2023 Deficiency of other specified B group vitamins 05/16/2019 Deviated septum 11/15/2023 Dizziness and giddiness 02/05/2019 Dry mouth 11/15/2023 Dysfunction of eustachian tube 06/12/2023 Dyspnea 06/12/2023 Elevated blood pressure reading 11/15/2023 Encounter for supervision of normal , unspecified, first trimester ([facility]) 05/29/2019 Environmental allergies 11/15/2023 Fatigue 12/29/2016 First degree perineal laceration during delivery ([facility]) 01/16/2020 Frequency of micturition 02/19/2019 Genitourinary symptoms 08/19/2021 Gestational diabetes mellitus (GDM), antepartum ([facility]) 01/26/2022 H/O: hypothyroidism 11/15/2023 Hematochezia 06/12/2023 [...] 01/16/2020 Irregular uterine bleeding 11/15/2023 problem ([facility]) 06/12/2023 Less than 8 weeks gestation of ([facility]) 06/05/2019 FPC (current) use of 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/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 02/05/2019 Migraine without aura and without status migrainosus, not intractable 09/12/2017 Morbid obesity ([facility]) 11/15/2023 Muscle fasciculation 08/19/2021 Nasal polyps 11/15/2023 Non-smoker 11/15/2023 NEETA (obstructive sleep apnea) 11/15/2023 Other acute postprocedural pain 02/03/2019 Other general symptoms and signs 10/28/2019 Other immediate hemorrhage ([facility]) 01/16/2020 Other specified noninflammatory disorders of vagina 02/21/2019 Pain in joint 12/29/2016 Palpitations 08/26/2019 Paresthesia of bilateral legs 11/15/2023 Pelvic and perineal pain 02/01/2019 Personal history of urinary (tract) infections 01/16/2020 Pre-diabetes 11/15/2023 Primary hypercoagulable state ([facility]) 08/01/2022 Pruritus, unspecified 01/02/2020 Psychogenic hyperventilation 06/12/2023 Raised antibody titer 09/25/2017 Right lower quadrant pain 11/15/2023 Right otitis externa 11/15/2023 Salivary gland swelling 11/15/2023 Single live ([facility]) 01/15/2020 Snoring 11/15/2023 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) 12/30/2019 Suspected severe acute respiratory syndrome coronavirus 2 (SARS-CoV-2) infection 06/12/2023 SVT (supraventricular tachycardia) ([facility]) 08/26/2019 Syncope and collapse 06/03/2018 Other bacterial infections of unspecified site 06/27/2019 Thrombocytopenia, unspecified 11/20/2019 Hypoglycemia 06/12/2023 Unspecified condition associated with female genital organs and menstrual cycle 05/09/2019 Unspecified ovarian cyst, right side 02/06/2019 Urinary tract infection 10/16/2019 Referred otalgia of right ear 11/19/2023 LPRD (laryngopharyngeal reflux disease) 11/19/2023 H/O loss 01/05/2025 Multigravida of advanced maternal age in second trimester ([facility]) 01/05/2025 Thyroid disease 01/05/2025 Resolved Ambulatory Problems Diagnosis Date Noted No Resolved Ambulatory Problems Past Medical History: Diagnosis Date AMA (advanced maternal age) multigravida 35+ ([facility]) Anemia Antiphospholipid syndrome ([facility]) Gestational diabetes ([facility]) [...] drainage of cyst WISDOM TOOTH EXTRACTION 2007 [place] REVIEW OF SYSTEMS Review of Systems: [...] nursing note reviewed. Exam conducted with a nuclear operations specialist present. Vitals: Estimated body mass index is 33.98 kg/m as calculated from the following: Height as of 11/19/23: 5' 6 . Weight as of this encounter: 210 lb 8 oz. BP: 116/72 Patient's last menstrual period was 07/28/2024. Assessment/Plan ICD-10-CM 1. Third trimester ([facility]) Z34.93 2. 30 weeks gestation of ([facility]) Z3A.30 POCT urinalysis dipstick manually [...] Wilton Herrmann DO documented in this encounterSaint Mary's Hospital of Blue SpringsOwocmaubzb90-58-6078 History of Present illness Narrative* Sam Callahan MD MPH - 02/16/2025 1:45 PM EDT Images from the original note were not included. ADULT RHEUMATOLOGY CLINIC NOTE [id number] [address] Patient Name: Sanna Rendon Subjective Reason for [...] following with two outside specialists (Neurology at [facility] and Hematology at [facility]) for management of her APS. [...] health issues unclear exact diagnoses Note from [facility] Provider (Dr. Noyola): Recent note [...] age) multigravida 35+ Antiphospholipid syndrome Hypothyroid Stroke ([facility]) Gestational diabetes mellitus (GDM) in second trimester [...] Anemia Antiphospholipid antibody syndrome Cerebral infarction, unspecified ([facility]) 05/16/2019 Hypothyroid Migraine without aura and without status migrainosus, not intractable 09/12/2017 Stroke ([facility]) 2016 reviewed. Social History Social History Narrative [...] weeks . She is currently following with [facility] for her , neurology through the [facility] system, and hematology through [facility]. Based on extensive review of [...] Expiration Date: 02/16/2026 Release to patient via Convoke Systemst?: Immediate [1] Complement profile (C3 AND C4) Standing Status: Future Expiration Date: 02/16/2026 Release to patient via Chronicityhart?: Immediate [1] DNA double-stranded (dsDNA) Abs by Rene angel IFA Standing Status: Future Expiration Date: 02/16/2026 Release to patient via Chronicityhart?: Immediate [1] KELLEN Panel Standing Status: Future Expiration Date: 02/16/2026 Release to patient via Chronicityhart?: Immediate [1] Treatment Plan: -if the patient [...] Callahan MD, MPH [facility] [address] [place] [address] Total fljy-ip-vzge time was 55 minutes with more than [...] you for your understanding. documented in this encounterGuernsey [facility] Hospital10-14-2025 Miscellaneous Notes* Telephone Encounter - Annita [...] in blood sugars weekly. documented in this encounterVermont State HospitalHita10-14-2025 Telephone encounter Note* Telephone Encounter - PRISCILLA [...] Continue to send in blood sugars weekly. [employer] Work Phone: [phone] 118-491310-13-2025 History of Present illness Narrative* Rosi Murray [...] Date Noted 32 weeks gestation of ([facility]) 11/28/2019 Abdominal pain 06/12/2023 Acute bronchitis due to infection 06/12/2023 Acute on chronic vesicular eczema of hands and feet 11/15/2023 Anemia complicating childbirth ([facility]) 01/16/2020 Anticoagulant long-term use 02/22/2020 Antiphospholipid antibody positive 09/10/2017 Antiphospholipid antibody syndrome ([facility]) 07/07/2019 Anxiety 06/12/2023 Blood pressure elevated without history of HTN 11/15/2023 BMI 37.0-37.9, adult 11/15/2023 Cerebral infarction, unspecified ([facility]) 05/16/2019 Cerebrovascular accident (CVA) due to stenosis of middle cerebral artery ([facility]) 02/22/2020 Cervicalgia 02/05/2019 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 ([facility]) 01/08/2020 Coagulation defect, unspecified ([facility]) 02/05/2019 Cold intolerance 11/15/2023 Deficiency of other specified B group vitamins 05/16/2019 Deviated septum 11/15/2023 Dizziness and giddiness 02/05/2019 Dry mouth 11/15/2023 Dysfunction of eustachian tube 06/12/2023 Dyspnea 06/12/2023 Elevated blood pressure reading 11/15/2023 Encounter for supervision of normal , unspecified, first trimester ([facility]) 05/29/2019 Environmental allergies 11/15/2023 Fatigue 12/29/2016 First degree perineal laceration during delivery ([facility]) 01/16/2020 Frequency of micturition 02/19/2019 Genitourinary symptoms 08/19/2021 Gestational diabetes mellitus (GDM), antepartum ([facility]) 01/26/2022 H/O: hypothyroidism 11/15/2023 Hematochezia 06/12/2023 [...] 01/16/2020 Irregular uterine bleeding 11/15/2023 problem ([facility]) 06/12/2023 Less than 8 weeks gestation of ([facility]) 06/05/2019 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 02/05/2019 Migraine without aura and without status migrainosus, not intractable 09/12/2017 Morbid obesity ([facility]) 11/15/2023 Muscle fasciculation 08/19/2021 Nasal polyps 11/15/2023 Non-smoker 11/15/2023 NEETA (obstructive sleep apnea) 11/15/2023 Other acute postprocedural pain 02/03/2019 Other general symptoms and signs 10/28/2019 Other immediate hemorrhage ([facility]) 01/16/2020 Other specified noninflammatory disorders of vagina 02/21/2019 Pain in joint 12/29/2016 Palpitations 08/26/2019 Paresthesia of bilateral legs 11/15/2023 Pelvic and perineal pain 02/01/2019 Personal history of urinary (tract) infections 01/16/2020 Pre-diabetes 11/15/2023 Primary hypercoagulable state ([facility]) 08/01/2022 Pruritus, unspecified 01/02/2020 Psychogenic hyperventilation 06/12/2023 Raised antibody titer 09/25/2017 Right lower quadrant pain 11/15/2023 Right otitis externa 11/15/2023 Salivary gland swelling 11/15/2023 Single live ([facility]) 01/15/2020 Snoring 11/15/2023 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) 12/30/2019 Suspected severe acute respiratory syndrome coronavirus 2 (SARS-CoV-2) infection 06/12/2023 SVT (supraventricular tachycardia) ([facility]) 08/26/2019 Syncope and collapse 06/03/2018 Other bacterial infections of unspecified site 06/27/2019 Thrombocytopenia, unspecified 11/20/2019 Hypoglycemia 06/12/2023 Unspecified condition associated with female genital organs and menstrual cycle 05/09/2019 Unspecified ovarian cyst, right side 02/06/2019 Urinary tract infection 10/16/2019 Referred otalgia of right ear 11/19/2023 LPRD (laryngopharyngeal reflux disease) 11/19/2023 H/O loss 01/05/2025 Multigravida of advanced maternal age in second trimester ([facility]) 01/05/2025 Thyroid disease 01/05/2025 Resolved Ambulatory Problems Diagnosis Date Noted No Resolved Ambulatory Problems Past Medical History: Diagnosis Date AMA (advanced maternal age) multigravida 35+ ([facility]) Anemia Antiphospholipid syndrome ([facility]) Gestational diabetes ([facility]) Heartburn Hypothyroid Stroke ([facility]) HISTORY PAST MEDICAL HISTORY SOCIAL HISTORY Past Medical History: Diagnosis Date AMA (advanced maternal age) multigravida 35+ ([facility]) Anemia Antiphospholipid syndrome ([facility]) Gestational diabetes ([facility]) Heartburn Hypothyroid Stroke ([facility]) Social [...] drainage of cyst WISDOM TOOTH EXTRACTION 2007 [place] REVIEW OF SYSTEMS Review of Systems: [...] nursing note reviewed. Exam conducted with a nuclear operations specialist present. Vitals: Estimated body mass index is 34.12 kg/m as calculated from the following: Height as of 11/19/23: 5' 6 . Weight as of this encounter: 211 lb 6.4 oz. BP: 124/76 Patient's last menstrual period was 07/28/2024. ASSESSMENT & PLAN ICD-10-CM 1. Third trimester ([facility]) Z34.93 2. 28 weeks gestation of ([facility]) Z3A.28 CBC and differential POCT urinalysis dipstick [...] givenorders and they were also faxed to [facility] and [facility] Scheduling. Patient to return to clinic in 2 weeks for routine OB appointment. Documented by Rosi Murray LPN on behalf of: Wilton Herrmann DO documented in this encounterSaint Mary's Hospital of Blue SpringsGapkrseley65-06-0445 History of Present illness Narrative* Mukul Noyola MD - 02/06/2025 2:00 PM EDT Images from the original note were not included. Video Visit via Real-time Synchronous Audiovisual Provider Location: [facility] AT [address] [id number] Patient Location: Other Home Patient Location Trick Rodeo Rider: None Video Visit Consent Statement: I discussed [...] that there are some limitations compared to pdpd-we-hokz evaluations. We elected to proceed. [facility] [...] will be undergoing genetic testing through the truck driver salesperson. There is family history of hypospadias and [...] Anemia Antiphospholipid antibody syndrome Cerebral infarction, unspecified ([facility]) 05/16/2019 Hypothyroid Migraine without aura and without status migrainosus, not intractable 09/12/2017 Stroke ([facility]) 2016 PSHIST: Past Surgical History: Procedure Laterality [...] to continue to send blood glucoses to [facility] to review - continue Lovenox [...] Mukul Noyola MD, FACOG (she/hers) Maternal- Medicine [facility] [address] [place] [address] This document was created with [employer] technology. Though I make every effort to review the dictation as it is transcribed, on occasion the spoken word can be misinterpreted by the technology leading to inappropriate words, phrases, or sentences. This note is addressed to the requesting provider as a consultation for clinical guidance. Specificmedical abbreviations are occasionally used and those are generally approved by the [place]?Board of?Obstetrics and?Gynecology?as well as?Elizabeth s abbreviations. The above plan of care was based solely on the diagnoses for which a consultation was requested. ?More frequent testing may be indicated based on her other medical/obstetrical conditions. The management of other or medical conditions is beyond the scope of requested consultation and will c ontinue to be followed by the primary blender / cook or primary care provider. Note to patient: [...] opinion of the practitioner. documented in this encounterWilson Street HospitalMor.sl [facility] JacksonJtqyzb65-21-3865 NoteEchocardiology Procedure Exam Date/Time Accession # Ordering Dr. Echo Transthoracic 02/03/2025 10:00 EDT [id number] Wilton HERRMANN DO Complete CPT code 08876 [id number] Reason for Exam (Echo Transthoracic Complete) Dizziness and giddiness E07.9, O09.522 R42 Report [facility] [address] [place] [address] Adult Echocardiogram Report Name: SANNA RENDON Study Date: 02/03/2025 08:09 AM BP: 116/76 mmHg Patient Location: FT CAR F HR: 84 : 1985 Gender: Female Height: 66 in Age: 39 yrs Ethnicity: [facility] Weight: 205 lb Reason For Study: [...] Signed by: Merrick Watkins MD Transcribed by: [facility] Technologist: [facility]09-22-2025 History of Present illness Narrative* Celia [...] Date Noted 32 weeks gestation of ([facility]) 11/28/2019 Abdominal pain 06/12/2023 Acute bronchitis due to infection 06/12/2023 Acute on chronic vesicular eczema of hands and feet 11/15/2023 Anemia complicating childbirth ([facility]) 01/16/2020 Anticoagulant long-term use 02/22/2020 Antiphospholipid antibody positive 09/10/2017 Antiphospholipid antibody syndrome ([facility]) 07/07/2019 Anxiety 06/12/2023 Blood pressure elevated without history of HTN 11/15/2023 BMI 37.0-37.9, adult 11/15/2023 Cerebral infarction, unspecified ([facility]) 05/16/2019 Cerebrovascular accident (CVA) due to stenosis of middle cerebral artery ([facility]) 02/22/2020 Cervicalgia 02/05/2019 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 ([facility]) 01/08/2020 Coagulation defect, unspecified ([facility]) 02/05/2019 Cold intolerance 11/15/2023 Deficiency of other specified B group vitamins 05/16/2019 Deviated septum 11/15/2023 Dizziness and giddiness 02/05/2019 Dry mouth 11/15/2023 Dysfunction of eustachian tube 06/12/2023 Dyspnea 06/12/2023 Elevated blood pressure reading 11/15/2023 Encounter for supervision of normal , unspecified, first trimester ([facility]) 05/29/2019 Environmental allergies 11/15/2023 Fatigue 12/29/2016 First degree perineal laceration during delivery ([facility]) 01/16/2020 Frequency of micturition 02/19/2019 Genitourinary symptoms 08/19/2021 Gestational diabetes mellitus (GDM), antepartum ([facility]) 01/26/2022 H/O: hypothyroidism 11/15/2023 Hematochezia 06/12/2023 [...] 01/16/2020 Irregular uterine bleeding 11/15/2023 problem ([facility]) 06/12/2023 Less than 8 weeks gestation of ([facility]) 06/05/2019 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 02/05/2019 Migraine without aura and without status migrainosus, not intractable 09/12/2017 Morbid obesity ([facility] 11/15/2023 Muscle fasciculation 08/19/2021 Nasal polyps 11/15/2023 Non-smoker 11/15/2023 NEETA (obstructive sleep apnea) 11/15/2023 Other acute postprocedural pain 02/03/2019 Other general symptoms and signs 10/28/2019 Other immediate hemorrhage ([facility]) 01/16/2020 Other specified noninflammatory disorders of vagina 02/21/2019 Pain in joint 12/29/2016 Palpitations 08/26/2019 Paresthesia of bilateral legs 11/15/2023 Pelvic and perineal pain 02/01/2019 Personal history of urinary (tract) infections 01/16/2020 Pre-diabetes 11/15/2023 Primary hypercoagulable state ([facility]) 08/01/2022 Pruritus, unspecified 01/02/2020 Psychogenic hyperventilation 06/12/2023 Raised antibody titer 09/25/2017 Right lower quadrant pain 11/15/2023 Right otitis externa 11/15/2023 Salivary gland swelling 11/15/2023 Single live ([facility]) 01/15/2020 Snoring 11/15/2023 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) 12/30/2019 Suspected severe acute respiratory syndrome coronavirus 2 (SARS-CoV-2) infection 06/12/2023 SVT (supraventricular tachycardia) ([facility]) 08/26/2019 Syncope and collapse 06/03/2018 [...] drainage of cyst WISDOM TOOTH EXTRACTION 2007 [place] teeth REVIEW OF SYSTEMS Review of Systems: [...] nursing note reviewed. Exam conducted with a nuclear operations specialist present. Vitals: Estimated body mass index is 34.14 kg/m as calculated from the following: Height as of 11/19/23: 5' 6 . Weight as of this encounter: 211 lb 8 oz. BP: 124/70 Patient's last menstrual period was 07/28/2024. ASSESSMENT & PLAN ICD-10-CM 1. Second trimester ([facility]) Z34.92 POCT urinalysis dipstick manually resulted 2. 25 weeks gestation of ([facility]) Z3A.25 3. Gestational diabetes mellitus (GDM), antepartum, gestational diabetes method of control unspecified ([facility]) O24.419 metFORMIN XR (Glucophage-XR) 500 MG 24 [...] to switch her Lovenox and Metformin to [facility] pharmacy. Growth ultrasound at28 weeks as well as NST and BPP at 28 weeks. Documented by Celia Keith NP on behalf of: Wilton Herrmann DO documented in this encounterSaint Mary's Hospital of Blue [id number] History of Present illness Narrative* Roxana Mays PA-C - 01/13/2025 10:00 AM EDT Maternal- Medicine Consultation VIDEO Patient is present at home , provider present at [facility] HISTORY OF PRESENT ILLNESS: Sanna [...] so she can have them done at [place] - Anatomy survey with MFM -followsup scheduled [...] by e-mail to: or by fax to: [phone] Roxana Mays PA-C Maternal- Medicine Office phone: [phone] Roxana Mays PA-C 01/13/25 1031 documented [address] HospitalMor.sl [facility] [id number] Miscellaneous Notes* Medical Student - Mike Aquino [...] the legal medical record. documented in this encounterGuernsey [facility]09-16-2025 Progress note* Medical Student - Mike [...] a part of the legal medical record. [facility]09-12-2025 Miscellaneous Notes* Telephone Encounter - Mukul [...] answered. MUKUL NOYOLA MD documented in this encounterGuernsey Memorial Hospital09-12-2025 Telephone encounter Note* Telephone Encounter - [...] questions and concerns answered. MUKUL NOYOLA MD [facility] [employer] [id number] Miscellaneous Notes* Telephone Encounter - Jacque aPt RN - 01/07/2025 10:29 AM EDT Naturopath called and spoke to patient yesterday to discuss a several topics. Naturopath asked if patient wanted another follow up cervical length. Patient declined. We also discussed her insulin dosage. Patient had not started her NPH insulin yet because her pharmacy did not notify her it was ready for pickup. She asked if she could start at 4 units instead of 8. She is worried because she had a bad reaction when she took Lantus previously. Naturopath discussed this with Dr. Noyola and she is okay with her starting at a lower dose for now. Lastly, mortgage underwriter notified patient that Dr. Noyola wanted to discuss with her systems engineer her Lovenox dosing. Patient stated there was some confusion if she should be on 40mg or 80mg, patient prefers to be on the lower dose. Patient is seeing a Dr. Calix from the [facility] hematology office in [place]. Notified patient that we will reach out to her systems engineer to discuss her dosing. documented in this encounterWilson Street HospitalVSSB Medical [facility]09-10-2025 Telephone encounter Note* Telephone Encounter - Jacque Pat RN - 01/07/2025 10:29 AM EDT Naturopath called and spoke to patient yesterday to discuss a several topics. Naturopath asked if patient wanted another follow up cervical length. Patient declined. We also discussed her insulin dosage. Patient had not started her NPH insulin yet because her pharmacy did not notify her it was ready for pickup. She asked if she could start at 4 units instead of 8. She is worried because she had a bad reaction when she took Lantus previously. Naturopath discussed this with Dr. Noyola and she is okay with her starting at a lower dose for now. Lastly, mortgage underwriter notified patient that Dr. Noyola wanted to discuss with her systems engineer her Lovenox dosing. Patient stated there was some confusion if she should be on 40mg or 80mg, patient prefers to be on the lower dose. Patient is seeing a Dr. Calix from the [facility] hematology office in [place]. Notified patient that we will reach out to her systems engineer to discuss her dosing. [employer]09-08-2025 History of Present illness Narrative* Rosi Murray [...] Date Noted 32 weeks gestation of ([facility]) 11/28/2019 Abdominal pain 06/12/2023 Acute bronchitis due to infection 06/12/2023 Acute on chronic vesicular eczema of hands and feet 11/15/2023 Anemia complicating childbirth ([facility]) 01/16/2020 Anticoagulant long-term use 02/22/2020 Antiphospholipid antibody positive 09/10/2017 Antiphospholipid antibody syndrome ([facility]) 07/07/2019 Anxiety 06/12/2023 Blood pressure elevated without history of HTN 11/15/2023 BMI 37.0-37.9, adult 11/15/2023 Cerebral infarction, unspecified ([facility]) 05/16/2019 Cerebrovascular accident (CVA) due to stenosis of middle cerebral artery ([facility]) 02/22/2020 Cervicalgia 02/05/2019 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 ([facility]) 01/08/2020 Coagulation defect, unspecified ([facility]) 02/05/2019 Cold intolerance 11/15/2023 Deficiency of other specified B group vitamins 05/16/2019 Deviated septum 11/15/2023 Dizziness and giddiness 02/05/2019 Dry mouth 11/15/2023 Dysfunction of eustachian tube 06/12/2023 Dyspnea 06/12/2023 Elevated blood pressure reading 11/15/2023 Encounter for supervision of normal , unspecified, first trimester ([facility]) 05/29/2019 Environmental allergies 11/15/2023 Fatigue 12/29/2016 First degree perineal laceration during delivery ([facility]) 01/16/2020 Frequency of micturition 02/19/2019 Genitourinary symptoms 08/19/2021 Gestational diabetes mellitus (GDM), antepartum ([facility]) 01/26/2022 H/O: hypothyroidism 11/15/2023 Hematochezia 06/12/2023 [...] 01/16/2020 Irregular uterine bleeding 11/15/2023 problem ([facility]) 06/12/2023 Less than 8 weeks gestation of ([facility]) 06/05/2019 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 02/05/2019 Migraine without aura and without status migrainosus, not intractable 09/12/2017 Morbid obesity ([facility]) 11/15/2023 Muscle fasciculation 08/19/2021 Nasal polyps 11/15/2023 Non-smoker 11/15/2023 NEETA (obstructive sleep apnea) 11/15/2023 Other acute postprocedural pain 02/03/2019 Other general symptoms and signs 10/28/2019 Other immediate hemorrhage ([facility]) 01/16/2020 Other specified noninflammatory disorders of vagina 02/21/2019 Pain in joint 12/29/2016 Palpitations 08/26/2019 Paresthesia of bilateral legs 11/15/2023 Pelvic and perineal pain 02/01/2019 Personal history of urinary (tract) infections 01/16/2020 Pre-diabetes 11/15/2023 Primary hypercoagulable state ([facility]) 08/01/2022 Pruritus, unspecified 01/02/2020 Psychogenic hyperventilation 06/12/2023 Raised antibody titer 09/25/2017 Right lower quadrant pain 11/15/2023 Right otitis externa 11/15/2023 Salivary gland swelling 11/15/2023 Single live ([facility]) 01/15/2020 Snoring 11/15/2023 Speech and language [...] drainage of cyst WISDOM TOOTH EXTRACTION 2007 [place] teeth REVIEW OF SYSTEMS Review of Systems: [...] nursing note reviewed. Exam conducted with a nuclear operations specialist present. Vitals: Estimated body mass index is 33.73 kg/m as calculated from the following: Height as of 11/19/23: 5' 6 . Weight as of this encounter: 209 lb. BP: 122/74 Patient's last menstrual period was 07/28/2024. ASSESSMENT & PLAN ICD-10-CM 1. Second trimester ([facility]) Z34.92 POCT urinalysis dipstick manually resulted 2. 23 weeks gestation of ([facility]) Z3A.23 3. Thyroid disease E07.9 Echocardiogram 2D complete ECG 12 lead unit performed Echocardiogram 2D complete 4. Gestational diabetes mellitus (GDM), antepartum, gestational diabetes method of control unspecified ([facility]) O24.419 Echocardiogram 2D complete ECG 12 lead unit performed Echocardiogram 2D complete 5. Multigravida of advanced maternal age in second trimester ([facility]) O09.522 Echocardiogram 2D complete ECG 12 lead [...] Wilton Herrmann DO documented in this encounterSaint Mary's Hospital of Blue [id number] History of Present illness Narrative* Jacque Pat RN - 01/05/2025 10:20 AM EDT NPH insulin prior authorization approved. Confirmed via telephone call with automated voice messaging system. Prior authorization number #[id number] documented in this encounterGuernsey Memorial Hospital09-04-2025 History of Present illness Narrative* Mukul Noyola MD - 01/01/2025 2:30 PM EDT Images from the original note were not included. Video Visit via Real-time Synchronous Audiovisual Provider Location: [facility] AT [address] [address] Patient Location: Other [facility] Patient Location Trick Rodeo Rider: None Video Visit Consent Statement: I discussed [...] that there are some limitations compared to qvga-lk-vome evaluations. We elected to proceed. [facility] [...] will be undergoing genetic testing through the truck driver salesperson. There is family history of hypospadias and [...] Anemia Antiphospholipid antibody syndrome Cerebral infarction, unspecified ([facility]) 05/16/2019 Hypothyroid Migraine without aura and without status migrainosus, not intractable 09/12/2017 Stroke ([facility]) 2015 PSHIST: Past Surgical History: Procedure Laterality [...] contrast; Future - [facility] - [place], [place]; Future 2. Antiphospholipid syndrome complicating , antepartum - Echo complete W/O contrast; Future - [facility] [place], [place]; Future 3. History of stroke 4. [...] intermittent symptoms concerning for an autoimmune condition [id number]. I recommended she sees a material handling supervisor. Referral given. I asked her to hold [...] supposed to undergo genetic testing with her truck driver salesperson. After the patient left I found that [...] asymptomatic I recommend that she sees a product accountant and she desires referral locally. Recommendations: - increase metformin to 1500 mg at night - she is willing to try the NPH 8 units at night - to continue to send blood glucoses to [facility] to review - follow-up survey [...] Mukul Noyola MD, FACOG (she/hers) Maternal- Medicine [facility] [address] [place] [address] This document was created with [employer] technology. Though I make every effort to review the dictation as it is transcribed, on occasion the spoken word can be misinterpreted by the technology leading to inappropriate words, phrases, or sentences. This note is addressed to the requesting provider as a consultation for clinical guidance. Specificmedical abbreviations are occasionally used and those are generally approved by the [place]?Board of?Obstetrics and?Gynecology?as well as?Elizabeth s abbreviations. The above plan of care was based solely on the diagnoses for which a consultation was requested. ?More frequent testing may be indicated based on her other medical/obstetrical conditions. The management of other or medical conditions is beyond the scope of requested consultation and will c taniaue to be followed by the primary blender / cook or primary care provider. Note to patient: [...] male Have you been seen here at [facility] in a previous ? yes Recent ER visits or hospitalizations? Seen in L&D for cramping about 2 weeks ago Bring blood sugar log or meter with you today? (Please bring them with you for every visit at [facility]) scanned to media tab Flu vaccine (Feb-June)? no Any concerns that you would like me to mention to the provider today? No concerns documented in this encounterWilson Street HospitalAltheaDx [id number] Miscellaneous Notes* Telephone Encounter - PRISCILLA Del [...] and basics of CGM explained. Will send [employer] message with instructions on how to connect to our [facility] account. Explained how to prudence notes on the Jenifer kennedy for fasting BG and meals. documented in this encounterWilson Street HospitalMor.sl [facility] Care[facility] Of [id number] Telephone encounter Note* Telephone Encounter - PRISCILLA [...] and basics of CGM explained. Will send [employer] message with instructions on how to connect to our [facility] account. Explained how to prudence notes on the Jenifer kennedy for fasting BG and meals. [employer]08-26-2025 NoteHNO ID: [id number] Author: KATHERINE NEGRETE APRN.RECEIVING MANAGER Service: ? Author Type: Nurse Practitioner Type: Progress Notes Filed: 12/24/2024 21:07 Note Text: NAME: Sanna Rendon CLINIC NO.: [id number] DATE OF SERVICE: December 23, 2024 ([facility]) [...] later in 2018. These were found in [place], [place]. I don't have access to these [...] rash shortly before presenting to [facility] in 2016 with headaches and [...] History of Present illness Narrative* Katherine Negrete APRN.RECEIVING MANAGER - 12/23/2024 11:50 AM EDT Images from the original note were not included. NAME: Sanna Rendon CLINIC NO.: [id number] DATE OF SERVICE: December 23, 2024 ([facility]) [...] later in 2018. These were found in [place], [place]. I don't have access to these [...] rash shortly before presenting to [facility] in 2016 with headaches and [...] Monge soon. When she hada stroke in [place], she had symptoms up to a month before: uncontrollable headache, BP was elevated, knee stiffness, and blurry vision. Right facial drooping and difficulty [facility] She continues to take vitamins. Updated [...] and stayed on Lovenox Hgb 13.1 @ [facility] Recommended ER if persisting bleeding but she [...] and at age 69. Both lived in [place], [place] - but she was adopted. She was not able to see ID in October and will be seeing Dr. Baugh next week. Also will have her see Dr. Hamlin for her clotting disorder and make any other recommendations to optimize her treatment. Updated Visit, October 08, 2020: Telephone only Received call from pt stating she was seen in [facility] for numbness in her chest, throat, and extremities, and sob which has been worsening over the last week. We arranged a telephone visit for her toreview questions with me. Sanna Rendon is a 34 year old female seen for Hypercoagulable state and recent concerns and symptoms that required her to be seen at [facility]. She went to the ER with Gradual worsening of breathing after progressive tingling of fingers and legs. She currently remains very fatigued even though she is sleeping well. Now recalls that before her stroke she remembers having a bull's eye rash and was seen with severe headaches in [place], [place] - was found to have a [...] a root canal and was sent to [facility] for MRI which was negative but non-contrasted. [...] was seen by Dr. Humera Hyde in [place] as well and was found to have [...] which included preparing to see the patient, [id number] patient care, completing clinical documentation, obtaining and/or reviewing separately obtained history, performing a medically appropriate examination, counseling and educating the pat ient/family/caregiver, ordering medications, tests, or procedures, independently interpreting results (not separately reported), and communicating results to the patient/family/caregiver. Katherine Negrete APRN.CNP Hematology and Oncology Services Provided at: [place], [place] CC: MD Wilton Day, [address] [place] [address] Humaira Gaviria MD [address] [place] [id number] MD Cosmo Kingston MD Michael Blank, MD documented in this encounterAdena [facility]ayette [facility]08-20-2025 History of Present illness Narrative* Alisa Saba APRN-RECEIVING MANAGER - 12/17/2024 3:30 PM EDT REASON FOR OFFICE VISIT: Video Visit via Real-time Synchronous Audiovisual Provider Location: [facility] AT [address] [address] Patient Location: Patient's home Video Visit Consent [...] that there are some limitations compared to [id number] evaluations. The patient consented to the presence [...] TSH 1.25 10/28/2024 No results found for: [id number] No results found for: CREATININE , BUN [...] by e-mail to: or by fax to: [phone] TIME OF CONSULTATION: 45 minutes with the patient, >50% in discussion and counseling, coordination of care which was [id number], review of records and communication back to referring provider. BRENNEN Guillen 12/17/24 1619 documented in this encounterGuernsey Memorial Hospital08-15-2025 Miscellaneous Notes* Telephone Encounter - PRISCILLA [...] 12/17/2024. Sanna verbalized understanding. documented in this encounterGuernsey Memorial Hospital08-15-2025 Telephone encounter Note* Telephone Encounter - PRISCILLA Sutherland - 12/12/2024 10:21 AM EDT Called Sanna back told her that I told Dr. Crotes about her starting Lantus last night and [...] Alisa Saba APRN 12/17/2024. Sanna verbalized understanding. [facility] Work Phone: [phone] Miscellaneous Notes* Telephone Encounter - PRISCILLA Sutherland [...] tried higher fiber snacks in the evening. Naturopath told her that I would relay her concerns to [facility] physician and get back to her. Obtained blood sugars for this week and will scan them into her chart. documented in this encounterGuernsey Memorial Hospital08-15-2025 Telephone encounter Note* Telephone Encounter - [...] tried higher fiber snacks in the evening. Naturopath told her that I would relay her concerns to [facility] physician and get back to her. Obtained blood sugars for this week and will scan them into her chart. [employer] Work Phone: [phone]) 926-353308-14-2025 History of Present illness Narrative* Rosi Murray, [...] Date Noted 32 weeks gestation of ([facility]) 11/28/2019 Abdominal pain 06/12/2023 Acute bronchitis due to infection 06/12/2023 Acute on chronic vesicular eczema of hands and feet 11/15/2023 Anemia complicating childbirth ([facility]) 01/16/2020 Anticoagulant long-term use 02/22/2020 Antiphospholipid antibody positive 09/10/2017 Antiphospholipid antibody syndrome ([facility]) 07/07/2019 Anxiety 06/12/2023 Blood pressure elevated without history of HTN 11/15/2023 BMI 37.0-37.9, adult 11/15/2023 Cerebral infarction, unspecified ([facility]) 05/16/2019 Cerebrovascular accident (CVA) due to stenosis of middle cerebral artery ([facility]) 02/22/2020 Cervicalgia 02/05/2019 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 ([facility]) 01/08/2020 Coagulation defect, unspecified ([facility]) 02/05/2019 Cold intolerance 11/15/2023 Deficiency of other specified B group vitamins 05/16/2019 Deviated septum 11/15/2023 Dizziness and giddiness 02/05/2019 Dry mouth 11/15/2023 Dysfunction of eustachian tube 06/12/2023 Dyspnea 06/12/2023 Elevated blood pressure reading 11/15/2023 Encounter for supervision of normal , unspecified, first trimester ([facility]) 05/29/2019 Environmental allergies 11/15/2023 Fatigue 12/29/2016 First degree perineal laceration during delivery ([facility]) 01/16/2020 Frequency of micturition 02/19/2019 Genitourinary symptoms 08/19/2021 Gestational diabetes mellitus (GDM) affecting ([facility]) 01/26/2022 H/O: hypothyroidism 11/15/2023 Hematochezia 06/12/2023 [...] 01/16/2020 Irregular uterine bleeding 11/15/2023 problem ([facility]) 06/12/2023 Less than 8 weeks gestation of ([facility]) 06/05/2019 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 02/05/2019 Migraine without aura and without status migrainosus, not intractable 09/12/2017 Morbid obesity ([facility]) 11/15/2023 Muscle fasciculation 08/19/2021 Nasal polyps 11/15/2023 Non-smoker 11/15/2023 NEETA (obstructive sleep apnea) 11/15/2023 Other acute postprocedural pain 02/03/2019 Other general symptoms and signs 10/28/2019 Other immediate hemorrhage ([facility]) 01/16/2020 Other specified noninflammatory disorders of vagina 02/21/2019 Pain in joint 12/29/2016 Palpitations 08/26/2019 Paresthesia of bilateral legs 11/15/2023 Pelvic and perineal pain 02/01/2019 Personal history of urinary (tract) infections 01/16/2020 Pre-diabetes 11/15/2023 Primary hypercoagulable state ([facility]) 08/01/2022 Pruritus, unspecified 01/02/2020 Psychogenic hyperventilation 06/12/2023 Raised antibody titer 09/25/2017 Right lower quadrant pain 11/15/2023 Right otitis externa 11/15/2023 Salivary gland swelling 11/15/2023 Single live ([facility]) 01/15/2020 Snoring 11/15/2023 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) 12/30/2019 Suspected severe acute respiratory syndrome coronavirus 2 (SARS-CoV-2) infection 06/12/2023 SVT (supraventricular tachycardia) ([facility]) 08/26/2019 Syncope and collapse 06/03/2018 [...] drainage of cyst WISDOM TOOTH EXTRACTION 2007 [place] teeth REVIEW OF SYSTEMS Review of Systems: [...] nursing note reviewed. Exam conducted with a nuclear operations specialist present. Vitals: Estimated body mass index is 33.41 kg/m as calculated from the following: Height as of 11/19/23: 5' 6 . Weight as of this encounter: 207 lb. BP: 120/70 Patient's last menstrual period was 07/28/2024. ASSESSMENT & PLAN ICD-10-CM 1. 19 weeks gestation of ([facility]) Z3A.19 POCT urinalysis dipstick manually resulted 2. Second trimester ([facility]) Z34.92 POCT urinalysis dipstick manually resulted 3. Thyroid disease E07.9 4. Multigravida of advanced maternal age in second trimester ([facility]) O09.522 5. Gestational diabetes mellitus (GDM), antepartum, gestational diabetes method of control unspecified ([facility]) O24.419 Patient presents today for a routine [...] scan and Telemedicine with MFM provider in [place]. Documented by Rosi Murray LPN on behalf of: Wilton Herrmann DO documented in this encounterSaint Mary's Hospital of Blue [id number] Miscellaneous Notes* Telephone Encounter - Anni Abreu CMA - 12/03/2024 3:01 PM EDT Left message with patient to call our office to schedule her next appt in 2 week with an FUR WEIGHER/PA. Left call back number and to press option 3 for scheduling. documented in this encounterGuernsey [facility]08-[facility]-2025 Telephone encounter Note* Telephone Encounter - Anni Abreu CMA - 12/03/2024 3:01 PM EDT Left message with patient to call our office to schedule her next appt in 2 week with an FUR WEIGHER/PA. Left call back number and to press option 3 for scheduling. [facility]08-06-[facility] History of Present illness Narrative* Alisa Tori, VICTOR HUGO-RECEIVING MANAGER - 12/03/2024 2:00 PM EDT REASON FOR [...] insulin. She is being followed at [facility] due to GDMA2. States she is [...] TSH 1.25 10/28/2024 No results found for: [id number] No results found for: CREATININE , BUN [...] baby. Little research has been done on usp effects of Metformin exposure to the fetus. [...] by e-mail to: or by fax to: [phone] TIME OF CONSULTATION: 60 minutes with the patient, >50% in discussion and counseling, coordination of care which was [id number]-[id number], review of records and communication back to referring provider. BRENNEN Guillen 12/03/24 1500 documented [address] HospitalMor.sl [facility] [id number] History of Present illness Narrative* Rosi Murray [...] Date Noted 32 weeks gestation of ([facility]) 11/28/2019 Abdominal pain 06/12/2023 Acute bronchitis due to infection 06/12/2023 Acute on chronic vesicular eczema of hands and feet 11/15/2023 Anemia complicating childbirth ([facility]) 01/16/2020 Anticoagulant long-term use 02/22/2020 Antiphospholipid antibody positive 09/10/2017 Antiphospholipid antibody syndrome ([facility]) 07/07/2019 Anxiety 06/12/2023 Blood pressure elevated without history of HTN 11/15/2023 BMI 37.0-37.9, adult 11/15/2023 Cerebral infarction, unspecified ([facility]) 05/16/2019 Cerebrovascular accident (CVA) due to stenosis of middle cerebral artery ([facility]) 02/22/2020 Cervicalgia 02/05/2019 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 ([facility]) 01/08/2020 Coagulation defect, unspecified ([facility]) 02/05/2019 Cold intolerance 11/15/2023 Deficiency of other specified B group vitamins 05/16/2019 Deviated septum 11/15/2023 Dizziness and giddiness 02/05/2019 Dry mouth 11/15/2023 Dysfunction of eustachian tube 06/12/2023 Dyspnea 06/12/2023 Elevated blood pressure reading 11/15/2023 Encounter for supervision of normal , unspecified, first trimester ([facility]) 05/29/2019 Environmental allergies 11/15/2023 Fatigue 12/29/2016 First degree perineal laceration during delivery ([facility]) 01/16/2020 Frequency of micturition 02/19/2019 Genitourinary symptoms 08/19/2021 Gestational diabetes mellitus (GDM) affecting ([facility]) 01/26/2022 H/O: hypothyroidism 11/15/2023 Hematochezia 06/12/2023 [...] 01/16/2020 Irregular uterine bleeding 11/15/2023 problem ([facility]) 06/12/2023 Less than 8 weeks gestation of ([facility]) 06/05/2019 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 02/05/2019 Migraine without aura and without status migrainosus, not intractable 09/12/2017 Morbid obesity ([facility]) 11/15/2023 Muscle fasciculation 08/19/2021 Nasal polyps 11/15/2023 Non-smoker 11/15/2023 NEETA (obstructive sleep apnea) 11/15/2023 Other acute postprocedural pain 02/03/2019 Other general symptoms and signs 10/28/2019 Other immediate hemorrhage ([facility]) 01/16/2020 Other specified noninflammatory disorders of vagina 02/21/2019 Pain in joint 12/29/2016 Palpitations 08/26/2019 Paresthesia of bilateral legs 11/15/2023 Pelvic and perineal pain 02/01/2019 Personal history of urinary (tract) infections 01/16/2020 Pre-diabetes 11/15/2023 Primary hypercoagulable state ([facility]) 08/01/2022 Pruritus, unspecified 01/02/2020 Psychogenic hyperventilation 06/12/2023 Raised antibody titer 09/25/2017 Right lower quadrant pain 11/15/2023 Right otitis externa 11/15/2023 Salivary gland swelling 11/15/2023 Single live ([facility]) 01/15/2020 Snoring 11/15/2023 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) 12/30/2019 Suspected severe acute respiratory syndrome coronavirus 2 (SARS-CoV-2) infection 06/12/2023 SVT (supraventricular tachycardia) ([facility]) 08/26/2019 Syncope and collapse 06/03/2018 [...] Date AMA (advanced maternal age) multigravida 35+ ([facility]) Anemia Antiphospholipid syndrome ([facility]) Gestational diabetes ([facility]) Heartburn Hypothyroid Stroke (HCC) HISTORY PAST MEDICAL HISTORY SOCIAL HISTORY Past Medical History: Diagnosis Date AMA (advanced maternal age) multigravida 35+ ([facility]) Anemia Antiphospholipid syndrome ([facility]) Gestational diabetes ([facility]) Heartburn Hypothyroid Stroke (HCC) Social History [...] drainage of cyst WISDOM TOOTH EXTRACTION 2007 [place] REVIEW OF SYSTEMS Review of Systems: [...] nursing note reviewed. Exam conducted with a nuclear operations specialist present. Vitals: Estimated body mass index is 33.57 kg/m as calculated from the following: Height as of 11/19/23: 5' 6 . Weight as of this encounter: 208 lb. BP: 108/76 Patient's last menstrual period was 07/28/2024. ASSESSMENT & PLAN ICD-10-CM 1. Second trimester ([facility]) Z34.92 Alpha fetoprotein, maternal Alpha fetoprotein, maternal 2. 16 weeks gestation of ([facility]) Z3A.16 POCT urinalysis dipstick manually resulted 3. Screening, , for anatomic survey ([facility]) Z36.89 CANCELED: US OB 14+ weeks anatomy [...] Wilton Herrmann DO documented in this encounterSaint Mary's Hospital of Blue [id number] Group counseling note* Group Note - Cindy [...] Face to face time was 100 minutes. [employer] Work Phone: 1(567) 466-423507-23-2025 Miscellaneous Notes* Group Note - Cindy Miller [...] time was 100 minutes. documented in this encounterGuernsey [facility] Hospital07-09-2025 Telephone encounter Note* Telephone Encounter - Rachael Johnson RN - 11/05/2024 12:48 PM EDT Pt updated. She reports she is unable to take aspirin. It makes my electrolytes go out of whack. Ididn't take with my previous pregnancies and I am not comfortable taking this time either. She will continue with Lovenox, as recommended. Pt is scheduled for appt with [employer], 11/19/24, [facility]. She denies further questions, needs or concerns for our care team at this time. Appt verified for RTC Rachael Johnson RN [facility]07-09-2025 Miscellaneous Notes* Telephone Encounter - Rachael Johnson RN - 11/05/2024 12:48 PM EDT Pt updated. She reports she is unable to take aspirin. It makes my electrolytes go out of whack. Ididn't take with my previous pregnancies and I am not comfortable taking this time either. She will continue with Lovenox, as recommended. Pt is scheduled for appt with [employer], 11/19/24, [facility]. She denies further questions, [...] note were not included. documented in this encounterAdena Fayette Medical Center07-09-2025 Telephone encounter Note * Telephone Encounter - Katherine Negrete APRN.CNP - 11/05/2024 12:29 PM EDT Spoke with Dr. Moscoso and she is to continue Lovenox 40 daily and add baby asa (81 mg) daily. Please also make sure she is following OB High risk. Labs acceptable at this time. Will monitor. Thanks, Katherine Negrete APRN.RECEIVING MANAGER [facility] Work Phone: 1(928) 618-615307-08-2025 Telephone encounter Note* Telephone Encounter - Abbie Jimenez PA-C - 11/04/2024 8:13 AM EDT Katherine saw this patient last and will be able to advise better of the plan of care. Abbie Jimenez PA-C [facility] Work Phone: 1(321) 820-407407-03-2025 History of Present illness Narrative* Rosi Murray [...] Date Noted 32 weeks gestation of ([facility]) 11/28/2019 Abdominal pain 06/12/2023 Acute bronchitis due to infection 06/12/2023 Acute on chronic vesicular eczema of hands and feet 11/15/2023 Anemia complicating childbirth ([facility]) 01/16/2020 Anticoagulant long-term use 02/22/2020 Antiphospholipid antibody positive 09/10/2017 Antiphospholipid antibody syndrome ([facility]) 07/07/2019 Anxiety 06/12/2023 Blood pressure elevated without history of HTN 11/15/2023 BMI 37.0-37.9, adult 11/15/2023 Cerebral infarction, unspecified ([facility]) 05/16/2019 Cerebrovascular accident (CVA) due to stenosis of middle cerebral artery ([facility]) 02/22/2020 Cervicalgia 02/05/2019 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 ([facility]) 01/08/2020 Coagulation defect, unspecified ([facility]) 02/05/2019 Cold intolerance 11/15/2023 Deficiency of other specified B group vitamins 05/16/2019 Deviated septum 11/15/2023 Dizziness and giddiness 02/05/2019 Dry mouth 11/15/2023 Dysfunction of eustachian tube 06/12/2023 Dyspnea 06/12/2023 Elevated blood pressure reading 11/15/2023 Encounter for supervision of normal , unspecified, first trimester ([facility]) 05/29/2019 Environmental allergies 11/15/2023 Fatigue 12/29/2016 First degree perineal laceration during delivery ([facility]) 01/16/2020 Frequency of micturition 02/19/2019 Genitourinary symptoms 08/19/2021 Gestational diabetes mellitus (GDM) affecting ([facility]) 01/26/2022 H/O: hypothyroidism 11/15/2023 Hematochezia 06/12/2023 [...] 01/16/2020 Irregular uterine bleeding 11/15/2023 problem ([facility]) 06/12/2023 Less than 8 weeks gestation of ([facility]) 06/05/2019 FPC (current) use of 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/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 02/05/2019 Migraine without aura and without status migrainosus, not intractable 09/12/2017 Morbid obesity ([facility]) 11/15/2023 Muscle fasciculation 08/19/2021 Nasal polyps 11/15/2023 Non-smoker 11/15/2023 NEETA (obstructive sleep apnea) 11/15/2023 Other acute postprocedural pain 02/03/2019 Other general symptoms and signs 10/28/2019 Other immediate hemorrhage ([facility]) 01/16/2020 Other specified noninflammatory disorders of vagina 02/21/2019 Pain in joint 12/29/2016 Palpitations 08/26/2019 Paresthesia of bilateral legs 11/15/2023 Pelvic and perineal pain 02/01/2019 Personal history of urinary (tract) infections 01/16/2020 Pre-diabetes 11/15/2023 Primary hypercoagulable state ([facility]) 08/01/2022 Pruritus, unspecified 01/02/2020 Psychogenic hyperventilation 06/12/2023 Raised antibody titer 09/25/2017 Right lower quadrant pain 11/15/2023 Right otitis externa 11/15/2023 Salivary gland swelling 11/15/2023 Single live ([facility]) 01/15/2020 Snoring 11/15/2023 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) 12/30/2019 Suspected severe acute respiratory syndrome coronavirus 2 (SARS-CoV-2) infection 06/12/2023 SVT (supraventricular tachycardia) ([facility]) 08/26/2019 Syncope and collapse 06/03/2018 [...] Date AMA (advanced maternal age) multigravida 35+ ([facility]) Anemia Antiphospholipid syndrome ([facility]) Gestational diabetes ([facility]) Heartburn Hypothyroid Stroke ([facility]) HISTORY PAST MEDICAL HISTORY SOCIAL HISTORY Past Medical History: Diagnosis Date AMA (advanced maternal age) multigravida 35+ ([facility]) Anemia Antiphospholipid syndrome ([facility]) Gestational diabetes ([facility]) Heartburn Hypothyroid Stroke ([facility]) Social History Tobacco Use Smoking [...] drainage of cyst WISDOM TOOTH EXTRACTION 2007 [place] REVIEW OF SYSTEMS Review of Systems: [...] nursing note reviewed. Exam conducted with a nuclear operations specialist present. Vitals: Estimated body mass index is 33.81 kg/m as calculated from the following: Height as of 11/19/23: 5' 6 . Weight as of this encounter: 209 lb 8 oz. BP: 110/76 Patient's last menstrual period was 07/28/2024. ASSESSMENT & PLAN ICD-10-CM 1. Second trimester ([facility]) Z34.92 POCT urinalysis dipstick manually resulted 2. 13 weeks gestation of ([facility]) Z3A.13 3. Thyroid disease E07.9 4. Multigravida of advanced maternal age in second trimester ([facility]) O09.522 New OB: Patient presents today for [...] undercooked meat, and stay away from [facility]. Patient has been consulted regarding any further do's and don'tsof . Patient voiced understanding and all questions and concerns were answered. Patient is currently on 40 Lovenox and will be referred to [facility] for recommendations/co-management throughout . Discussed [...] Wilton Herrmann DO documented in this encounterSaint Mary's Hospital of Blue [id number] Telephone encounter Note* Telephone Encounter - Valeri Yeung RN - 10/30/2024 8:30 AM EDT Labs resulted. Please advise. Valeri Yeung RN [facility]07-01-2025 Telephone encounter Note* Telephone Encounter - Roberta Haskins - 10/28/2024 2:52 PM EDT Images from the original note were not included. [facility]07-01-2025 NoteHNO ID: [id number] Author: KATHERINE NEGRETE APRN.RECEIVING MANAGER Service: ? Author Type: Nurse Practitioner Type: Progress Notes Filed: 10/29/2024 21:44 Note Text: NAME: Sanna Rendon CLINIC NO.: [id number] DATE OF SERVICE: October 28, 2024 (Penelope) [...] later in 2018. These were found in [place], [place]. I don't have access to these [...] rash shortly before presenting to [facility] in 2016 with headaches and [...] History of Present illness Narrative* Katherine Negrete APRN.RECEIVING MANAGER - 10/28/2024 2:33 PM EDT Images from the original note were not included. NAME: Sanna Rendon CLINIC NO.: [id number] DATE OF SERVICE: October 28, 2024 ([place]elope) [...] later in 2018. These were found in [place], [place]. I don't have access to these [...] rash shortly before presenting to [facility] in 2016 with headaches and [...] Monge soon. When she hada stroke in [place], she had symptoms up to a month before: uncontrollable headache, BP was elevated, knee stiffness, and blurry vision. Right facial drooping [facility] difficulty [facility] She continues to take vitamins. Updated [...] and stayed on Lovenox Hgb 13.1 @ [facility] [place] ER if persisting bleeding but she [...] and at age 69. Both lived in [place], [place] - but she was adopted. She was not able to see ID in October and will be seeing Dr. Baugh next week. Also will have her see Dr. Hamlin for her clotting disorder and make any other recommendations to optimize her treatment. Updated Visit, October 08, 2020: Telephone only Received call from pt stating she was seen in [facility] for numbness in her chest, throat, and extremities, and sob which has been worsening over the last week. We arranged a telephone visit for her chanw questions with me. Sanna Rendon is a 34 year old female seen for Hypercoagulable state and recent concerns and symptoms that required her to be seen at [facility]. She went to the ER with Gradual worsening of breathing after progressive tingling of fingers and legs. She currently remains very fatigued even though she is sleeping well. Now recalls that before her stroke she remembers having a bull's eye rash and was seen with severe headaches in [place], [place] - was found to have a [...] a root canal and was sent to [facility] for MRI which was negative but non-contrasted. [...] was seen by Dr. Humera Hyde in [place] as well and was found to have [...] which included preparing to see the patient, [id number] patient care, completing clinical documentation, obtaining and/or reviewing separately obtained history, performing a medically appropriate examination, counseling and educating the pat ient/family/caregiver, ordering medications, tests, or procedures, independently interpreting results (not separately reported), and communicating results to the patient/family/caregiver. Katherine Negrete APRN.TOR Hematology [facility] Oncology Services Provided at: [place], [place] CC: MD Chalino DayHenry [facility] [address] [place] [address] Humaira Gaviria MD [address] [place] [id number] MD Cosmo Kingston MD Michael Blank, MD documented in this encounterAdena Fayette [facility] Center06-27-2025 Telephone encounter Note * Telephone Encounter - Kaur Dunham MA - 10/24/2024 2:14 PM EDT New orders may need placed for appt on 10/28. Kaur Dunham MA [facility]06-27-2025 Miscellaneous Notes* Telephone Encounter - Kaur Dunham MA - 10/24/2024 2:14 PM EDT New orders may need placed for appt on 10/28. Kaur Dunham MA documented in this encounterAdena Fayette Medical Center06-16-2025 Miscellaneous Notes* Telephone Encounter - Margo Khan RN - 10/13/2024 12:14 PM EDT Attempted to contact patient x3, call cannot be completed, cannot receive calls at this time. Unable to leave a voicemail. documented in this encounterGuernsey [facility] Hospital06-16-2025 Telephone encounter Note* Telephone Encounter - Margo Khan RN - 10/13/2024 12:14 PM EDT Attempted to contact patient x3, call cannot be completed, cannot receive calls at this time. Unable to leave a voicemail. 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 and without status migrainosus, not intractable ([facility]) 09/12/2017 Morbid obesity ([facility]) 11/15/2023 Muscle fasciculation 08/19/2021 Nasal [...] infections 01/16/2020 Pre-diabetes 11/15/2023 Primary hypercoagulable state ([facility]) 08/01/2022 Pruritus, unspecified 01/02/2020 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[facility]) 06/12/2023 Raised antibody titer 09/25/2017 Right lower quadrant pain 11/15/2023 Right otitis externa 11/15/2023 Salivary gland swelling 11/15/2023 Single live 01/15/2020 Snoring 11/15/2023 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) 12/30/2019 Suspected severe acute respiratory syndrome coronavirus 2 (SARS-CoV-2) infection 06/12/2023 SVT (supraventricular tachycardia) ([facility]) 08/26/2019 Syncope and collapse 06/03/2018 [...] Gestational diabetes Heartburn Hypothyroid ([facility]/HCC) Stroke ([facility]) Family History Problem Relation Name [...] drainage of cyst WISDOM TOOTH EXTRACTION 2007 [place] Allergies Allergen Reactions Ciprofloxacin GI intolerance [...] TSH Nurse Note: Patient desires to have [employer] to one. Pt was advised to [...] undercooked meat, and stay away from [facility]. Patient has also been advised to [...] Lala Hess MA documented in this encounterSaint Mary's Hospital of Blue SpringsDavpoilotw25-28-7255 NotePatient Education Infectious Disease Upper Respiratory Infection, [...] to help relieve symptoms, such as: ??? Eikb-eyw-aotjkvw cold medicines. ??? Cough suppressants. Coughing is [...] other clear broths. General instructions ??? Take bcsf-ljc-mkvbxnk and prescription medicines only as told by [...] and water are not available, use [employer]. ??? Avoid touching your mouth, face, eyes, [...] a stiff neck. ? (more content not included)...[facility]05-07-2025 Miscellaneous Notes* Telephone Encounter - Rachael [...] advise Rachael Johnson RN documented in this encounterAdena Fayette Medical Center05-07-2025 Telephone encounter Note * Telephone Encounter - Rachael Johnson RN - 09/03/2024 1:25 PM EDT Pt notified and appt for September. She denies any further questions, needs or concerns at thistime. Rachael Johnson RN [facility]05-07-2025 Telephone encounter Note* Telephone Encounter - Kristofer Calix MD - 09/03/2024 12:51 PM EDT No change in meds. [facility]05-06-2025 Telephone encounter Note* Telephone Encounter - Rachael Johnson RN - 09/02/2024 9:37 AM EDT Pt left a voicemail to inform she is approximately 5 weeks . She is asking any recommendations on med changes. Pt missed today's appt. Called and left VM to please call and schedule missed follow up MUNIRA. Fely: Please advise Rachael Johnson RN [facility]04-29-2025 Telephone encounter Note* Telephone Encounter - Serina Dawson MA - 08/26/2024 3:41 PM EDT Patient has an appt on 08/27/24. Would you like labs, if so place orders. Serina Dawson MA [facility]04-29-2025 Miscellaneous Notes* Telephone Encounter - Serina Horton MA - 08/26/2024 3:41 PM EDT Patient has an appt on 08/27/24. Would you like labs, if so place orders. Serina Dawson MA documented in this encounterAdena Fayette Medical Center04-08-2025 Evaluation + Plan note Future Scheduled Tests Laboratory* HgbA1c 08/05/24 * HgbA1c 11/04/24 Radiology* CT Soft Tissue Neck w/ Contrast 11/12/23 [facility] 03-27-2025 History of Present illness Narrative* Rosi Spitler, MUSIC INTERN - 07/24/2024 11:50 AM EDT Reason for [...] Antiphospholipid antibody positive 09/10/2017 Antiphospholipid antibody syndrome ([facility]) 07/07/2019 Anxiety 06/12/2023 Blood pressure elevated without history of HTN 11/15/2023 BMI 37.0-37.9, adult 11/15/2023 Cerebral infarction, unspecified ([facility]) 05/16/2019 Cerebrovascular accident (CVA) due to stenosis of middle cerebral artery ([facility]) 02/22/2020 Cervicalgia 02/05/2019 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 Coagulation defect, unspecified ([facility]) 02/05/2019 Cold intolerance 11/15/2023 Deficiency of [...] and without status migrainosus, not intractable ([facility]) 09/12/2017 Morbid obesity ([facility]) 11/15/2023 Muscle fasciculation 08/19/2021 Nasal [...] 2 (SARS-CoV-2) infection 06/12/2023 SVT (supraventricular tachycardia) ([facility]) 08/26/2019 Syncope and collapse 06/03/2018 Other [...] drainage of cyst WISDOM TOOTH EXTRACTION 2007 [place] REVIEW OF SYSTEMS Review of Systems: [...] nursing note reviewed. Exam conducted with a nuclear operations specialist present. Vitals: Estimated body mass index [...] Wilton Herrmann DO documented in this encounterSaint Mary's Hospital of Blue [id number] NotePatient Education Emergency Medicine Bradycardia, Adult Bradycardia is a gcupos-pdyj-qrqucr heartbeat. A normal resting heart rate for [...] provider. ??? Follow a heart-healthy diet. A director of food and nutrition services (dietitian) can help educate you about healthy [...] liquor (44 mL). General instructions ??? Take byia-hag-jdcrxhc and prescription medicines only as told by [...] irregular heartbeat (palpitations). ??? (more content not included)...[facility]03-03-2025 Hospital Discharge instructions Patient Education 06/30/2024 [...] Follow these instructions at home: Medicines Give ovkx-nsz-bbncchl and prescription medicines only as told by [...] find more information PANDAS Network: pandasnetwork.org [place] of Mental Health: [facility] health [place].nih.gov Contact a health care provider if: Your [...] the National Suicide Prevention Lifeline at or 514. This is open 24 hours a day. Text the Crisis Text Line at 357241. Summary Pediatric autoimmune neuropsychiatric disorders associated with [...] provider. Document Revised: 01/09/2022 Document Reviewed: 01/09/2022 [employer] Patient Education 2023 [employer]. 06/30/2024 09:20:50 Common Variable Immunodeficiency Common [...] Follow these instructions at home: Medicines Take izof-htc-cxfbrhh and prescription medicines only as told by [...] disease. Where to find more information [place] of Allergy and Infectious Disease: www.niaid.nih.gov Contact [...] risk for frequent or unusual infections. Take wsos-pyg-qdptjrk and prescription medicines only as told by [...] provider. Document Revised: 11/18/2021 Document Reviewed: 11/18/2021 [employer] Patient Education 2023 [employer]. 06/30/2024 09:18:06 DASH Eating Plan DASH [...] Dairy Whole or 2% milk, cream, and hbba-uyj-jkuy. Whole or full-fat cream cheese. Whole-fat or [...] more information National Heart, Lung, and [place] (NHLBI): nhlbi.nih.gov [place] Heart Association (AHA): heart.org Academy of Nutrition and Dietetics: eatright.org National Kidney Foundation (NKF): kidney.org This information is not intended to replace advice given to you by your health care provider. Make sure you discuss any questions you have with your health care provider. Document Revised: 05/03/2023 Document Reviewed: 05/03/2023 Elsevier Patient Education 2023 [employer] Follow Up Care 06/25/2024 13:53:59 With:PRAVEEN RESENDEZ FAAFP, CHRIS Perez, PED Address: [place] [address]- When:Within 2 Month(s) [facility] 03-03-2025 NotePatient Education Immunology [...] these instructions at home: Medicines ??? Take xvaa-qcb-dochcbz and prescription medicines only as told by [...] Where to find more information ??? [place] of Allergy and Infectious Disease: www.niaid.nih.gov Contact a health care provider if: ??? You have a fever. ??? You have any symptoms of infection such as chills, worsening cough, or severe earache. ??? You make high-pitched whistling sounds when you breathe, most often when you breathe out (wheeze). 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 Coagulation defect, unspecified ([facility]) 02/05/2019 Cold intolerance 11/15/2023 Deficiency [...] aura and without status migrainosus, not intractable ([facility]) 09/12/2017 Morbid obesity ([facility]) 11/15/2023 Muscle fasciculation 08/19/2021 Nasal [...] infections 01/16/2020 Pre-diabetes 11/15/2023 Primary hypercoagulable state ([facility]) 08/01/2022 Pruritus, unspecified 01/02/2020 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[facility]) 06/12/2023 Raised antibody titer 09/25/2017 Right lower quadrant pain 11/15/2023 Right otitis externa 11/15/2023 Salivary gland swelling 11/15/2023 Single live 01/15/2020 Snoring 11/15/2023 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) 12/30/2019 Suspected severe acute respiratory syndrome coronavirus 2 (SARS-CoV-2) infection 06/12/2023 SVT (supraventricular tachycardia) ([facility]) 08/26/2019 Syncope and collapse 06/03/2018 Other bacterial infections of unspecified site 06/27/2019 Thrombocytopenia, unspecified ([facility]) 11/20/2019 Hypoglycemia 06/12/2023 Unspecified condition associated with female genital organs and menstrual cycle 05/09/2019 Unspecified ovarian cyst, right side 02/06/2019 Urinary tract infection 10/16/2019 Referred otalgia of right ear 11/19/2023 LPRD (laryngopharyngeal reflux disease) 11/19/2023 Resolved Ambulatory Problems Diagnosis Date Noted No Resolved Ambulatory Problems Past Medical History: Diagnosis Date AMA (advanced maternal age) multigravida 35+ Anemia Antiphospholipid syndrome ([facility]) Gestational diabetes Heartburn Hypothyroid ([facility]) Stroke ([facility]) HISTORY PAST MEDICAL HISTORY SOCIAL HISTORY Past Medical History: Diagnosis Date AMA (advanced maternal age) multigravida 35+ Anemia Antiphospholipid syndrome ([facility]) Gestational diabetes Heartburn Hypothyroid ([facility]) Stroke ([facility]) Social History Tobacco Use Smoking [...] drainage of cyst WISDOM TOOTH EXTRACTION 2007 [place] teeth REVIEW OF SYSTEMS Review of Systems: [...] nursing note reviewed. Exam conducted with a nuclear operations specialist present. Vitals: Estimated body mass index [...] Wilton Herrmann DO documented in this encounterSaint Mary's Hospital of Blue [id number] Hospital Discharge instructions Patient Education 06/09/2024 14:23:47 [...] Do not chew gum. General instructions Take nyjn-aly-imiqhop and prescription medicines only as told by [...] important. Where to find more information [place] of Dental and Craniofacial Research: www.nidcr.nih.gov Contact [...] provider. Document Revised: 11/27/2021 Document Reviewed: 11/27/2021 [employer] Patient Education 2023 [employer]. Follow Up Care 06/06/2024 11:26:13 With:PRAVEEN RESENDEZ FAAFP, Penelope Tony, CHRIS, PED Address: [address], [place] [address]- When:Within 6 Month(s) [facility] 02-10-2025 NotePatient Education Orthopedics [...] not chew gum. General instructions ??? Take ypis-jjr-lxadqse and prescription medicines only as told by [...] Where to find more information ??? [place] of Dental and Craniofacial Research: www.nidcr.nih.gov Contact [...] provider. Document Revised: 11/27/2021 Document Reviewed: 11/27/2021 [employer] Patient Education ? 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 Coagulation defect, unspecified ([facility]) 02/05/2019 Cold intolerance 11/15/2023 Deficiency [...] aura and without status migrainosus, not intractable ([facility]) 09/12/2017 Morbid obesity ([facility]) 11/15/2023 Muscle fasciculation 08/19/2021 Nasal [...] infections 01/16/2020 Pre-diabetes 11/15/2023 Primary hypercoagulable state ([facility]) 08/01/2022 Pruritus, unspecified 01/02/2020 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[facility]) 06/12/2023 Raised antibody titer 09/25/2017 Right lower quadrant pain 11/15/2023 Right otitis externa 11/15/2023 Salivary gland swelling 11/15/2023 Single live 01/15/2020 Snoring 11/15/2023 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) 12/30/2019 Suspected severe acute respiratory syndrome coronavirus 2 (SARS-CoV-2) infection 06/12/2023 SVT (supraventricular tachycardia) ([facility]) 08/26/2019 Syncope and collapse 06/03/2018 Other bacterial infections of unspecified site 06/27/2019 Thrombocytopenia, unspecified ([facility]) 11/20/2019 Hypoglycemia 06/12/2023 Unspecified condition [...] drainage of cyst WISDOM TOOTH EXTRACTION 2007 [place] teeth REVIEW OF SYSTEMS Review of Systems: [...] nursing note reviewed. Exam conducted with a nuclear operations specialist present. Vitals: Estimated body mass index [...] Patient had recent HCG level drawn [place] [facility] [place] lab value was 6. Documented by Renate Vegas LPN on behalf of: Wilton Herrmann DO documented in this encounterSaint Mary's Hospital of Blue [id number] Telephone encounter Note* Telephone Encounter - Taylor Escudero - 05/28/2024 1:45 PM EST Triage to call with iron results [facility]01-29-2025 Miscellaneous Notes* Telephone Encounter - Taylor Escudero - 05/28/2024 1:45 PM EST Triage to call with iron results documented in this encounterAdena Fayette [facility] Center01-29-2025 Instructions* Patient Instructions* Nathaly Florence - 05/28/2024 1:44 PM EST Triage to call iron results Continue Lovenox - patient prefers 40 mg (rather than rec 80mg) Encouraged her to reconsider Take B12 supplement in the form of a sublingual tablet RTC in 3 months Labs same day or 2-7 days prior documented in this encounterAdena Fayette Medical Center01-29-2025 History of Present illness Narrative* Kristofer Calix MD - 05/28/2024 1:00 PM EST Images from the original note were not included. NAME: Sanna Rendon CLINIC NO.: [id number] DATE OF SERVICE: May 28, 2024 (Levon) [...] later in 2018. These were found in [place], [place]. I don't have access to these [...] rash shortly before presenting to [facility] in 2015 with headaches and [...] Monge soon. When she hada stroke in [place], she had symptoms up to a month before: uncontrollable headache, BP was elevated, knee stiffness, and blurry vision. Right facial drooping [facility] difficulty [facility] She continues to take vitamins. Updated [...] and stayed on Lovenox Hgb 13.1 @ [facility] Recommended ER if persisting bleeding but she [...] and at age 69. Both lived in [place], [place] - but she was adopted. She was not able to see ID in October and will be seeing Dr. Baugh next week. Also will have her see Dr. Hamlin for her clotting disorder and make any other recommendations to optimize her treatment. Updated Visit, October 08, 2020: Telephone only Received call from pt stating she was seen in [facility] for numbness in her chest, throat, and extremities, and sob which has been worsening over the last week. We arranged a telephone visit for her toreview questions with me. Sanna Rendon is a 34 year old female seen for Hypercoagulable state and recent concerns and symptoms that required her to be seen at [facility]. She went to the ER with Gradual worsening of breathing after progressive tingling of fingers and legs. She currently remains very fatigued even though she is sleeping well. Now recalls that before her stroke she remembers having a bull's eye rash and was seen with severe headaches in [place], [place] - was found to have a [...] a root canal and was sent to [facility] for MRI which was negative but non-contrasted. [...] was seen by Dr. Humera Hyde in [place] as well and was found to have [...] which included preparing to see the patient, xwco-uq-giqy patient care, completing clinical documentation, performing a medically appropriate examination, counseling and educating the patient/family/caregiver, ordering medications, tests, or p rocedures, independently interpreting results (not separately reported), communicating results to the patient/family/caregiver, and care coordination (not separately reported). Kristofer Calix MD, CPE Hematology and Oncology Services Provided at: [place], [place] Scribe Attestation: This note was scribed [...] my direction. CC: MD Wilton Day, [address] [place] [address] Humaira Gaviria MD [address] [place] [address] [place] [address] MD Cosmo Kingston MD Michael Blank, MD documented in this encounterAdena Fayette [facility] Center01-29-2025 NoteHNO ID: [id number] Author: KRISTOFER CALIX MD Service: ? Author Type: Physician Type: Progress Notes Filed: 05/29/2024 09:13 Note Text: NAME: Sanna Rendon CLINIC NO.: [id number] DATE OF SERVICE: May 28, 2024 (Levon) [...] later in 2018. These were found in [place], [place]. I don't have access to these [...] rash shortly before presenting to [facility] in 2016 with headaches and [...] soon. When she had a stroke in [place], she had symptoms up to a month [...] for deficiency. She is aware if her code number stamper or PCP request any additional testing, we can certainly draw with her appt 05/21 (will just need to fax orders). She denies any further questions needs or concerns at this time. MARSHA Rushk: YANET [facility]01-15-2025 Miscellaneous Notes* Telephone Encounter - Rachael Johnson RN - 05/14/2024 10:15 AM EST Pt called to inform she had a miscarriage, Sunday (05/10/24) Asking if any additional blood work was needed from out standpoint. Pt aware we will be checking her CBC for any signs of anemia and her iron studies for deficiency. She is aware if her code number stamper or PCP request any additional testing, we can certainly draw with her appt 05/21 (will just need to fax orders). She denies any further questions needs or concerns at this time. MARSHA Rushk: YANET documented in this encounterAdena Fayette Medical Center01-15-2025 Telephone encounter Note * Telephone [...] up appointment. PVU--Rosi Presley LPN [facility] [id number] Miscellaneous Notes* Telephone Encounter - Rosi Murray [...] PVU--Rosi Presley LPN documented in this encounterSaint Mary's Hospital of Blue [id number] History of Present illness Narrative* Pamela Walter [...] aura and without status migrainosus, not intractable ([facility]) 09/12/2017 Morbid obesity ([facility]) 11/15/2023 Muscle fasciculation 08/19/2021 Nasal [...] 01/16/2020 Pre-diabetes 11/15/2023 Primary hypercoagulable state ([facility]) 08/01/2022 Pruritus, unspecified 01/02/2020 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[facility]) 06/12/2023 Raised antibody titer 09/25/2017 Right lower quadrant pain 11/15/2023 Right otitis externa 11/15/2023 Salivary gland swelling 11/15/2023 Single live 01/15/2020 Snoring 11/15/2023 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) 12/30/2019 Suspected severe acute respiratory syndrome coronavirus 2 (SARS-CoV-2) infection 06/12/2023 SVT (supraventricular tachycardia) ([facility]) 08/26/2019 Syncope and collapse 06/03/2018 Other bacterial infections of unspecified site 06/27/2019 Thrombocytopenia, unspecified ([facility]) 11/20/2019 Hypoglycemia 06/12/2023 Unspecified condition associated with female genital organs and menstrual cycle 05/09/2019 Unspecified ovarian cyst, right side 02/06/2019 Urinary tract infection 10/16/2019 Referred otalgia of right ear 11/19/2023 LPRD (laryngopharyngeal reflux disease) 11/19/2023 Resolved Ambulatory Problems Diagnosis Date Noted No Resolved Ambulatory Problems Past Medical History: Diagnosis Date AMA (advanced maternal age) multigravida 35+ Anemia Antiphospholipid syndrome ([facility]) Gestational diabetes Heartburn Hypothyroid ([facility]) Stroke ([facility]) HISTORY PAST MEDICAL HISTORY SOCIAL HISTORY Past Medical History: Diagnosis Date AMA (advanced maternal age) multigravida 35+ Anemia Antiphospholipid syndrome ([facility]) Gestational diabetes Heartburn Hypothyroid ([facility]) Stroke ([facility]) Social History Tobacco Use Smoking [...] drainage of cyst WISDOM TOOTH EXTRACTION 2007 [place] teeth REVIEW OF SYSTEMS Review of Systems: [...] nursing note reviewed. Exam conducted with a nuclear operations specialist present. Vitals: Estimated body mass index [...] dipstick manually resulted documented in this encounterSaint Mary's Hospital of Blue [id number] History of Present illness Narrative* Ariane Joseph [...] Antiphospholipid antibody positive 09/10/2017 Antiphospholipid antibody syndrome ([facility]) 07/07/2019 Anxiety 06/12/2023 Blood pressure elevated without history of HTN 11/15/2023 BMI 37.0-37.9, adult 11/15/2023 Cerebral infarction, unspecified ([facility]) 05/16/2019 Cerebrovascular accident (CVA) due to stenosis of middle cerebral artery ([facility]) 02/22/2020 Cervicalgia 02/05/2019 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 Coagulation defect, unspecified ([facility]) 02/05/2019 Cold intolerance 11/15/2023 Deficiency [...] aura and without status migrainosus, not intractable ([facility]) 09/12/2017 Morbid obesity ([facility]) 11/15/2023 Muscle fasciculation 08/19/2021 Nasal [...] infections 01/16/2020 Pre-diabetes 11/15/2023 Primary hypercoagulable state ([facility]) 08/01/2022 Pruritus, unspecified 01/02/2020 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[facility]) 06/12/2023 Raised antibody titer 09/25/2017 Right lower quadrant pain 11/15/2023 Right otitis externa 11/15/2023 Salivary gland swelling 11/15/2023 Single live 01/15/2020 Snoring 11/15/2023 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) 12/30/2019 Suspected severe acute respiratory syndrome coronavirus 2 (SARS-CoV-2) infection 06/12/2023 SVT (supraventricular tachycardia) ([facility]) 08/26/2019 Syncope and collapse 06/03/2018 Other bacterial infections of unspecified site 06/27/2019 Thrombocytopenia, unspecified ([facility]) 11/20/2019 Hypoglycemia 06/12/2023 Unspecified condition associated with female genital organs and menstrual cycle 05/09/2019 Unspecified ovarian cyst, right side 02/06/2019 Urinary tract infection 10/16/2019 Referred otalgia of right ear 11/19/2023 LPRD (laryngopharyngeal reflux disease) 11/19/2023 Resolved Ambulatory Problems Diagnosis Date Noted No Resolved Ambulatory Problems Past Medical History: Diagnosis Date AMA (advanced maternal age) multigravida 35+ Anemia Antiphospholipid syndrome ([facility]) Gestational diabetes Heartburn Hypothyroid ([facility]) Stroke ([facility]) Family History Problem Relation Name [...] drainage of cyst WISDOM TOOTH EXTRACTION 2007 [place] teeth Allergies Allergen Reactions Ciprofloxacin GI intolerance [...] undercooked meat, and stay away from [facility]. Patient has also been advised to [...] Ariane Joseph LPN documented in this encounterSaint Mary's Hospital of Blue [id number] Telephone encounter Note* Telephone Encounter - Rachael Johnson RN - 02/28/2024 8:21 AM EDT Pt aware and agreeable to plan of care. Pt denies any further questions, needs or concerns at this time. Appt verified for lab/follow up Rachael Johnson RN [facility]10-31-2024 Miscellaneous Notes* Telephone Encounter - [...] advise Rachael Johnson RN documented in this encounterAdena Fayette [facility] Center10-30-2024 Telephone encounter Note * Telephone Encounter - Kristofer Calix MD - 02/27/2024 4:36 PM EDT She can take the iron with prenatals. We should March labs as scheduled. [facility]10-30-2024 Telephone encounter Note* Telephone Encounter - Rachael Johnson RN - 02/27/2024 9:41 AM EDT Pt 4 weeks and inquiring if she should have March's lab work completed now or wait until scheduled appt. Pt last labs completed 01/02/24. Pt also would like to know if it is okay to take with iron? Fely: Please advise Rachael Johnson RN [facility]10-08-2024 Hospital Discharge instructions Patient Education [...] condition. Follow these instructions at home: Take dugp-usb-oadzvfr and prescription medicines only as told by [...] and water are not available, use [employer]. Avoid contact with people who have cold [...] it is easier to cough up. Take pens-jvr-fockvur and prescription medicines only as told by [...] provider. Document Revised: 07/27/2022 Document Reviewed: 08/17/2021 [employer] Patient Education 2023 [employer]. Follow Up Care 02/04/2024 08:47:42 With:PRAVEEN RESENDEZ FAAFP, CHRIS Perez, PED Address: [address] [place] [address], [facility] [place] [id number]- When:Within 3 Month(s) [facility] 10-08-2024 NotePatient Education Pulmonary [...] Follow these instructions at home: ? Take xufk-swm-czybtho and prescription medicines only as told by [...] and water are not available, use [employer]. ? Avoid contact with people who have [...] is easier to cough up. ? Take lbes-clm-adfnvxs and (more content not included)...[facility]10-05-2024 Hospital Discharge instructions Follow Up Care 02/02/2024 11:19:56 With:Anni Bernstein MD, [facility], MED Address: [address] [place] [phone] When: only if needed [facility] 09-09-2024 Miscellaneous Notes* Telephone [...] FE results. Thank you documented in this encounterAdena Fayette Medical Center09-09-2024 Telephone encounter Note * Telephone Encounter - Valeri Yeung RN - 01/07/2024 8:29 AM EDT No need for IV iron per CC'd chart from Dr. Calix. Attempt to call pt to notify. Left detailed message on, along with call back number on voicemail. Valeri Yeung RN [facility]09-04-2024 Telephone encounter Note* Telephone Encounter - Marleen Mcdonald - 01/02/2024 2:[address] Luna is requesting Triage to call Sanna with her FE results. Thank you [facility]09-04-2024 Instructions* Patient Instructions* Nathaly Florence - 01/02/2024 2:08 PM EDT Triage to call iron results Continue Lovenox - patient prefers 40 mg (rather than rec 80mg) Encouraged her to reconsider Take B12 supplement in the form of a sublingual tablet RTC in 3 months Labs same day Vitamin D, TSH, Calcium with CMP documented in this encounterAden[facility]09-[facility] Nurse Note* Serina Horton MA [...] MRI but was negative. Serina Dawson MA [facility]09[facility]04[facility] Nurse Note* Serina Dawson MA [...] negative. Serina Dawson MA documented in this encounterAdena [facility] Center09-04-2024 History of Present illness Narrative* Kristofer Calix MD - 01/02/2024 1:45 PM EDT Images from the original note were not included. NAME: Sanna Rendon CLINIC NO.: [id number] DATE OF SERVICE: January 02, 2024 (Levon) [...] later in 2018. These were found in [place], [place]. I don't have access to these [...] rash shortly before presenting to [facility] in 2016 with headaches and [...] Monge soon. When she hada stroke in [place], she had symptoms up to a month before: uncontrollable headache, BP was elevated, knee stiffness, and blurry vision. Right facial drooping [facility] difficulty [facility] She continues to take vitamins. Updated [...] and stayed on Lovenox Hgb 13.1 @ [facility] Recommended ER if persisting bleeding but she [...] and at age 69. Both lived in [facility] but she was adopted. She was not able to see ID in October and will be seeing Dr. Baugh next week. Also will have her see Dr. Hamlin for her clotting disorder and make any other recommendations to optimize her treatment. Updated Visit, October 08, 2020: Telephone only Received call from pt stating she was seen in [facility] for numbness in her chest, throat, and extremities, and sob which has been worsening over the last week. We arranged a telephone visit for her toreview questions with me. Sanna Rendon is a 34 year old female seen for Hypercoagulable state and recent concerns and symptoms that required her to be seen at [facility]. She went to the ER with Gradual worsening of breathing after progressive tingling of fingers and legs. She currently remains very fatigued even though she is sleeping well. Now recalls that before her stroke she remembers having a bull's eye rash and was seen with severe headaches in [facility] was found to have a [...] a root canal and was sent to [facility] for MRI which was negative but non-contrasted. [...] was seen by Dr. Humera Hyde in [place] as well and was found to have [...] which included preparing to see the patient, sabk-ic-vtiy patient care, completing clinical documentation, performing a medically appropriate examination, counseling and educating the patient/family/caregiver, ordering medications, tests, or p rocedures, independently interpreting results (not separately reported), communicating results to the patient/family/caregiver, and care coordination (not separately reported). Kristofer Calix MD, CPE Hematology and Oncology Services Provided at: [place], [place] Scribe Attestation: This note was scribed [...] my direction. CC: MD Wilton Day, [address] [place] [address] Humaira Gaviria MD [address] [place] [id number] MD Cosmo Kingston MD Michael Blank, MD documented in this encounterAdena Fayette [facility] Center08-19-2024 Telephone encounter Note * Telephone Encounter - Rachael Johnson RN - 12/17/2023 12:57 PM EDT Pt updated and will follow up with PCP. Denies further questions, needs or concerns at this time for our provider. Rachael Johnson RN [facility]08-19-[facility]24 Miscellaneous Notes* Telephone Encounter - [...] to IV Iron 11/29/23? documented in this encounterAdena Fayette [facility] Center08-19-2024 Telephone encounter Note * Telephone Encounter - Kristofer Calix MD - 12/17/2023 12:52 PM EDT No - sounds like she has some infectious process going on - would rec PCP. [facility] Telephone encounter Note* Telephone Encounter [...] possible delayed reaction to IV Iron 11/29/23? [facility]08-01[facility] History of Present illness Narrative* Becki Gutierrez RN - 11/29/2023 2:01 PM EDT Y Y documented in this encounterAdena Fayette [facility] Center08-01-2024 Telephone encounter Note * Telephone Encounter - Rachael Johnson RN - 11/29/2023 12:45 PM EDT MARSHA Connell, treatment aware of changes. [facility]08-01[facility] Miscellaneous Notes* Telephone Encounter - [...] a different iron formulation. documented in this encounterAdena [facility] Center08-01-2024 Telephone encounter Note * Telephone Encounter - Rachael Johnson RN - 11/29/2023 12:41 PM EDT Spoke with pt. She will obtain Pepcid OTC from our retail pharmacy on arrival to take (1) 20 mg tablet. She is aware and agreeable to IV steroid for infusion as well. Rachael Johnson RN [facility]08-01-[facility] Telephone encounter Note* Telephone Encounter - Raissa Aly RPh - 11/29/2023 12:40 PM EDT A one time dose of dexamethasone is safe when . I added 8mg to the plan for your review. Please adjust dose if necessary. Thanks, Raissa Aly RPh [facility] Work Phone: [phone] Telephone encounter Note* Telephone Encounter - Raissa Aly RPh - 11/29/2023 12:34 PM EDT Famotidine is safe when . Do we want to administer the venofer slower? What rate? Thanks, Raissa Aly [facility]08-01-2024 Telephone encounter Note* Telephone Encounter - Rachael Johnson RN - 11/29/2023 11:56 AM EDT Called and discussed with pt. She is and cannot take Benadryl. She is reluctant to take Pepcid. Attempted to call retail, infusion pharmacy and [facility], no answer, to ask safety of pepcid in . Pharm/Fely: please advise Rachael Johnson RN [facility]08-01-[facility]24 Telephone encounter Note* Telephone Encounter [...] have to choose a different iron formulation. [facility]07-18-[facility] History of Present illness Narrative* Alison Linares RN - 11/15/2023 1:42 PM EDT Pt reports having nausea and lightheadedness this morning. She has seen her pcp regarding these symptoms and is being worked up to figure out the cause. documented in this encounterAdena Fayette Medical Center07-18-2024 Telephone encounter Note * Telephone Encounter - Evelyn Sanabria - 11/15/2023 9:19 AM EDT 1st report of treatment-Non oncology regimen (Venofer) Patient holds Medicaid coverage and there isno available FA at this time. [facility]07-18-[facility] Miscellaneous Notes* Telephone Encounter - Domo Cat Evelyn Radha - 11/15/2023 9:19 AM EDT 1st report of treatment-Non oncology regimen (Venofer) Patient holds Medicaid coverage and there isno available FA at this time. documented in this encounterAdena [facility]ayette [facility] Center07-12-2024 Hospital Discharge instructions Patient Education [...] your hypoglycemia. Where to find more information [place] Diabetes Association: www.diabetes.org National [place] of Diabetes and Digestive and Kidney Diseases: [...] provider. Document Revised: 03/17/2021 Document Reviewed: 03/17/2021 [employer] Patient Education 2022 [employer]. 11/09/2023 15:56:06 Prediabetes Prediabetes Prediabetes is [...] hard liquor (44 mL). General instructions Take pywe-ztb-wpclaky and prescription medicines only as told by [...] is important. Where to find more information [place] Diabetes Association: www.diabetes.org Academy of Nutrition and Dietetics: www.eatright.org [place] Heart Association: www.heart.org Contact a health care [...] provider. Document Revised: 07/15/2020 Document Reviewed: 07/15/2020 [employer] Patient Education 2022 [employer]. 11/09/2023 15:56:02 Palpitations Palpitations Palpitations are [...] ask your health careprovider. General instructions Take bxxo-uxw-kruqunf and prescription medicines only as told by [...] provider. Document Revised: 09/07/2021 Document Reviewed: 09/07/2021 [employer] Patient Education 2022 [employer]. 11/09/2023 15:55:58 Fatigue Fatigue If you [...] Follow these instructions at home: Medicines Take rcjo-zbt-kewhmab and prescription medicines only as told by [...] the National Suicide Prevention Lifeline at or 458. This is open 24 hours a day. Text the Crisis Text Line at 145336. Summary If you have fatigue, you feel [...] Document Reviewed: 02/06/2022 Elsevier Patient Education 2022 [employer] Follow Up Care 11/08/2023 11:31:43 With:PRAVEEN RESENDEZ FAAFP, Penelope Tony, CHRIS, PED Address: [address], [facility] [address]- When: Unknown [facility] 07-12-2024 NotePatient Education Emergency [...] health care provider. General instructions ? Take rovp-bpw-nsxowgq and prescription medicines only as told by [...] provider. Document Revised: 09/07/2021 Document Reviewed: 09/07/2021 [employer] Patient Education ? 2022 [employer]. Endocrinology Preventing Hypoglycemia Hypoglycemia occurs when [...] Mild hypoglycemia may not (more content not included)...[facility]07-12-2024 History of Present illness Narrative* Tamiko Krueger LSW - 11/09/2023 9:27 AM EDT [facility] List for a non-oncology treatment. No psychosocial assessment is indicated. TIM Huerta-Jaylan documented in this encounterAdena Fayette [facility] Center07-09-2024 Telephone encounter Note * Telephone [...] dizziness, etc. Appointments verified. Rachael Johnson RN [facility]07-09-2024 Miscellaneous Notes* Telephone Encounter - [...] Sent: 11/05/2023 11:33 AM EDT To: [facility] Triage Pool; [facility] Clerical Pool Perry Isidro - looks like you need Iron again. Dr. Middleton Cancel her virtual set for 11/05 and 11/19 - infuse 3 doses weekly iron and then see her in 8 weeks inperson - labs same day. Thanks! documented in this encounterAdena Fayette Medical Center07-08-2024 Telephone encounter Note * Telephone [...] get you feeling better. Best, Dr. Middleton [facility]07-08-2024 Telephone encounter Note* Telephone Encounter [...] is on a blood thinner. Roberta Haskins [facility]07-08-2024 Telephone encounter Note* Telephone Encounter - Roberta Haskins - 11/05/2023 12:47 PM EDT Appointment tomorrow cancelled. Andres tried calling her this morning and was unable to get a hold ofher. Will keep trying patient to schedule for Iron. Roberta Haskins [facility]07-08-2024 Telephone encounter Note* Telephone Encounter - Roberta Haskins - 11/05/2023 12:47 PM EDT ----- Message from Rachael Johnson RN sent at 11/05/2023 11:53 AM EDT ----- ----- Message ----- From: Kristofer Calix MD Sent: 11/05/2023 11:33 AM EDT To: [facility] Triage Pool; [facility] Clerical Pool Perry Isidro - looks like you need Iron again. Dr. Middleton Cancel her virtual set for 11/05 and 11/19 - infuse 3 doses weekly iron and then see her in 8 weeks inperson - labs same day. Thanks! [facility]06-25-[facility] Hospital Discharge instructions Patient Education [...] specializes in ear, nose, and throat disorders (applications programmer analyst, or ENT) for more tests and [...] (rhinoplasty). Follow these instructions at home: Take lgvp-gqv-sehqyjc and prescription medicines only as told by [...] specializes in ear, nose, and throat disorders (applications programmer analyst, or ENT) for more tests and treatment. This information is not intended to replace advice given to you by your health care provider. Make sure you discuss any questions you have with your health care provider. Document Revised: 12/12/2021 Document Reviewed: 12/12/2021 [employer] Patient Education 2022 [employer]. 10/23/2023 17:12:52 Nasal Polyps Nasal Polyps [...] instructions at home: Medicines Take or use eirn-zjz-cxjqpfg and prescription medicines only as told by [...] provider. Document Revised: 04/05/2022 Document Reviewed: 04/05/2022 [employer] Patient Education 2022 [employer]. 10/23/2023 17:12:52 Nasal Polypectomy Nasal Polypectomy [...] including vitamins, herbs, eye drops, creams, and rldv-wng-zskbsfn medicines. Any problems you or family members [...] provider tells you to take them. Taking obdo-nlc-dlhpabw medicines, vitamins, herbs, and supplements. General instructions [...] provider. Document Revised: 04/05/2022 Document Reviewed: 04/05/2022 [employer] Patient Education 2022 [employer]. 10/23/2023 17:12:46 BMI for Adults BMI [...] numbers. This can be done either in French (U.S.) or metric measurements. Note that charts and online BMI calculators are available to help you find your BMI quickly and easily without having to do these calculations yourself. To calculate your BMI in French (U.S.) measurements: 1.Measure your weight in pounds [...] Centers for Disease Control and Prevention: www.cdc.gov [place] Heart Association: www.heart.org National Heart, Lung, and Blood [place]: www.nhlbi.nih.gov Summary Body mass index (BMI) is a number that is calculated from a person's weight and height. BMI may help estimate how much of a person's weight is composed of fat. BMI can help identify thosewho may be at higher risk for certain medical problems. BMI can be measured using French measurements or metric measurements. BMI charts are used to identify whether you are underweight, normal weight, overweight, or obese. This information is not intended to replace advice given to you by your health care provider. Make sure you discuss any questions you have with your health care provider. Document Revised: 01/07/2020 Document Reviewed: 11/14/2019 [employer] Patient Education 2022 [employer]. Follow Up Care 10/23/2023 08:49:41 With:Lourdes Urrutia Address: [address] [place] [address], [facility] [place] [address]- When: only if needed [facility] 05-31-2024 Hospital Discharge instructions [...] Follow these instructions at home: Medicines Take zvti-exb-gjmslzn and prescription medicines only as told by [...] Watch your condition for any changes. Take mijd-dtc-qlwzyru and prescription medicines only as told by [...] provider. Document Revised: 06/04/2020 Document Reviewed: 08/25/2019 [employer] Patient Education 2022 [employer]. Follow Up Care 09/28/2023 18:22:59 With:Penelope CASAS Address: [address], [place] [address]- Business (1) When:Within 3 Day(s) [facility]05-31-2024 Hospital Discharge instructions Patient Education 09/28/2023 18:24:44 [...] numbers. This can be done either in French (U.S.) or metric measurements. Note that charts and online BMI calculators are available to help you find your BMI quickly and easily without having to do these calculations yourself. To calculate your BMI in French (U.S.) measurements: 1.Measure your weight in pounds [...] Centers for Disease Control and Prevention: www.cdc.gov [place] Heart Association: www.heart.org National Heart, Lung, and Blood [place]: www.nhlbi.nih.gov Summary Body mass index (BMI) is a number that is calculated from a person's weight and height. BMI may help estimate how much of a person's weight is composed of fat. BMI can help identify thosewho may be at higher risk for certain medical problems. BMI can be measured using French measurements or metric measurements. BMI charts are used to identify whether you are underweight, normal weight, overweight, or obese. This information is not intended to replace advice given to you by your health care provider. Make sure you discuss any questions you have with your health care provider. Document Revised: 01/07/2020 Document Reviewed: 11/14/2019 [employer] Patient Education 2022 [employer]. 09/28/2023 18:24:42 Hypertension, Adult, Vrxp-ye-Azhx Hypertension, Adult Hypertension is another name for [...] doctor. Keep all follow-up visits. Medicines Take gkwg-rlo-dmrgisv and prescription medicines only as told by [...] provider. Document Revised: 02/02/2022 Document Reviewed: 02/02/2022 [employer] Patient Education 2022 [employer]. 09/28/2023 18:24:32 Abdominal Pain, Adult, Lulq-zu-Agic Abdominal Pain, Adult Many things can cause belly (abdominal) pain. Most times, belly pain is not dangerous. Many cases of belly pain can be watched and treated at home. Sometimes, though, belly pain is serious. Your doctor will try to find the cause of your belly pain. Follow these instructions at home: Medicines Take mswq-xxh-nmooiqb and prescription medicines only as told by [...] your belly pain for any changes. Take pyqp-glg-kigboba and prescription medicines only as told by [...] provider. Document Revised: 08/25/2019 Document Reviewed: 08/25/2019 [employer] Patient Education 2022 [employer]. Follow Up Care 09/28/2023 16:11:11 With:Emergency room Address: When: only if needed Comments:Patient was instructed to contact emergency room for any worsening abdominal pain, concerns, or complications. [facility] 05-31-2024 Evaluation + Plan [...] 12:40:00 PM Scheduled Provider:Penelope CASAS DO, FAAFP Location:[facility] Appointment Type:FM Open Future Scheduled Tests Laboratory* HgbA1c 08/03/23 [facility]05-30-2024 Telephone encounter Note* Telephone Encounter - Divine Roberta - 09/27/2023 4:38 PM EDT Attempt has been made x2 to reschedule patient. She did not have labs drawn. Roberta Haskins [facility]05-30-2024 Miscellaneous Notes* Telephone Encounter - JocelynelesterRoberta - 09/27/2023 4:38 PM EDT Attempt has been made x2 to reschedule patient. She did not have labs drawn. Roberta Haskins documented in this encounterAdena [facility] Center05-29-2024 History of Present illness Narrative* Kristofer Calix MD - 09/26/2023 9:11 AM EDT Did not have labs done to prep for this visit - reschedule. Kristofer Calix MD documented in this encounterAdena Fayette [facility] Center04-05-2024 Hospital Discharge instructions Patient Education [...] your health care provider or diet and director of food and nutrition services (dietitian). This may include: ?Eating fewer calories. [...] provider. Document Revised: 06/12/2021 Document Reviewed: 06/12/2021 [employer] Patient Education 2022 [employer]. Follow Up Care 02/15/2023 10:07:52 With:PRAVEEN RESENDEZ FAAFP, Penelope Tony, CHRIS, PED Address: [address], [place] [address]- When:Within 4 Month(s) [facility] 04-05-2024 Evaluation + Plan note Future Scheduled Tests Laboratory* HgbA1c 08/03/23 Radiology* CT Soft Tissue Neck w/ Contrast 11/12/23 [facility] 02-22-2024 Hospital Discharge instructions [...] or if there is an kennedy for [employer]. Most glucose meters store a record of [...] mayhave. Where to find more information The [place] Diabetes Association: www.diabetes.org The Association of Diabetes [...] provider. Document Revised: 01/12/2021 Document Reviewed: 01/12/2021 [employer] Patient Education 2022 [employer]. 06/21/2023 06:07:34 Preventing Iron Deficiency Anemia, [...] iron. Foods high in vitamin C include: ?Yazoo fruits, such as tai, oranges, and grapefruits. [...] iron supplement is right for you. Take ymzj-jgt-iomqnao and prescription medicines only as told by your health care provider. Keep all follow-up visits. Where to find more information Learn more about preventing iron deficiency from: National Heart, Lung, and Blood [place]: www.nhlbi.nih.gov [place] Society of Hematology: www.hematology.org Contact a health [...] provider. Document Revised: 05/24/2022 Document Reviewed: 05/24/2022 [employer] Patient Education 2022 [employer]. 06/21/2023 06:07:28 BMI for Adults BMI [...] numbers. This can be done either in French (U.S.) or metric measurements. Note that charts and online BMI calculators are available to help you find your BMI quickly and easily without having to do these calculations yourself. To calculate your BMI in French (U.S.) measurements: 1.Measure your weight in pounds [...] Centers for Disease Control and Prevention: www.cdc.gov [place] Heart Association: www.heart.org National Heart, Lung, and Blood [place]: www.nhlbi.nih.gov Summary Body mass index (BMI) is a number that is calculated from a person's weight and height. BMI may help estimate how much of a person's weight is composed of fat. BMI can help identify thosewho may be at higher risk for certain medical problems. BMI can be measured using French measurements or metric measurements. BMI charts are used to identify whether you are underweight, normal weight, overweight, or obese. This information is not intended to replace advice given to you by your health care provider. Make sure you discuss any questions you have with your health care provider. Document Revised: 01/07/2020 Document Reviewed: 11/14/2019 [employer] Patient Education 2022 [employer]. Follow Up Care 06/19/2023 13:39:56 With:PRAVEEN RESENDEZ FAAFP, Penelope Tony, CHRIS, PED Address: [address] [place] [id number]- When: Unknown [facility] 02-20-2024 Miscellaneous Notes* Telephone Encounter - Rachael Johnson RN - 06/19/2023 1:05 PM EST Pt called back and aware of Fely's message. She is agreeable to POC and denies further needs at thistime. She will call PCP to follow up on TSH Rachael Johnson RN * Telephone Encounter - Rachael Johnson RN - 06/19/2023 12:26 PM EST [employer] System[employer] message sent Rachael Johnson RN * Telephone [...] lab results Roberta Haskins documented in this encounterAdena [facility] Center02-16-2024 Instructions* Patient Instructions* Nathaly Carney [...] TSH, Calcium with CMP documented in this encounterAdena Fayette Medical Center02-16-2024 Nurse Note* Serina Horton MA [...] exercise. Serina Dawson MA documented in this encounterAdena Fayette [facility] Center02-16-2024 History of Present illness Narrative* Kristofer Calix MD - 06/15/2023 2:00 PM EST Images from the original note were not included. NAME: Sanna Rendon CLINIC NO.: [id number] DATE OF SERVICE: June 15, 2023 (Levon) [...] later in 2018. These were found in [place], [place]. I don't have access to these [...] rash shortly before presenting to [facility] in 2016 with headaches and [...] Monge soon. When she hada stoke in [place], she had symptoms up to a month [...] and stayed on Lovenox Hgb 13.1 @ [facility] Recommended ER if persisting bleeding but she [...] and at age 69. Both lived in [facility] but she was adopted. She was not able to see ID in October and will be seeing Dr. Baugh next week. Also will have her see Dr. Hamlin for her clotting disorder and make any other recommendations to optimize her treatment. Updated Visit, October 08, 2020: Telephone only Received call from pt stating she was seen in [facility] for numbness in her chest, throat, and extremities, and sob which has been worsening over the last week. We arranged a telephone visit for her franci questions with me. Sanna Rendon is a 34 year old female seen for Hypercoagulable state and recent concerns and symptoms that required her to be seen at [facility]. She went to the ER with Gradual worsening of breathing after progressive tingling of fingers and legs. She currently remains very fatigued even though she is sleeping well. Now recalls that before her stroke she remembers having a bull's eye rash and was seen with severe headaches in [facility] was found to have a [...] a root canal and was sent to [facility] for MRI which was negative but non-contrasted. [...] was seen by Dr. Humera Hyde in [place] as well and was found to have [...] which included preparing to see the patient, jwfn-lm-ulkg patient care, completing clinical documentation, performing a medically appropriate examination, counseling and educating the patient/family/caregiver, ordering medications, tests, or p rocedures, independently interpreting results (not separately reported), communicating results to the patient/family/caregiver, and care coordination (not separately reported). Kristofer Calix MD, CPE Hematology and Oncology Services Provided at: [place], [place] Scribe Attestation: This note was scribed [...] my direction. CC: MD Wilton Day, [address] [place] [address] Humaira Gaviria MD [address] [place] [id number] MD Cosmo Kingston MD Michael Blank, MD documented in this encounterAdena Fayette [facility] Center02-12-2024 Miscellaneous Notes* Telephone Encounter - Ebony Redding Ma - 06/11/2023 10:43 AM EST Labs for appointment on 06/15. Ebony Redding Ma documented in this encounterAdena Fayette Medical Center02-12-2024 Miscellaneous Notes* Telephone Encounter - Nicol Avila - 06/11/2023 9:[address] Mnoge office spoke with Brinda. Patient is scheduled [...] Nicol Salgado * [facility] 8:37 AM EST Records faxed. [...] since she was last seen by him. [facility] Neurology [address] [facility], [place] Bhavna, Please fax records Andres, Please follow up on this appt. Thank you documented in this encounterAdena Fayette Medical Center02-01-2024 History of Present illness Narrative* Kristofer Calix MD - 05/31/2023 4:30 PM EST Images from the original note were not included. NAME: Sanna Rendon CLINIC NO.: [id number] DATE OF SERVICE: May 31, 2023 (Levon) Some elements in this clinic note that are critical to medical decision making have been carefully reviewed and included from a prior clinic note dated: March 19, 2023 (Levon) Additional Clinicians involved in Sanna Rendon's care: Drs. Herrmann, Jorge Monge, Humaira Gaviria, VIRTUAL VISIT PROGRESS NOTE This is a virtual visit using [employer] Zoom Video Visit. It required patient- provider interaction for the medical decision making as documented below. I have communicated my name and active licensure. The patient's identity and physical location wereverified at the time of this visit. Either the patient or their legal insurance claim representative has been informed of the risks and benefits of -- and alternatives to -- treatment through a remote evaluation andconsents to proceed with the evaluation remotely. CC: hypercoag state. ASSESSMENT: 37 year old woman 25 weeks presents with a prior history of CVA in 2016 and anantiphospholipid antibody that was identified much later in 2018. These were found in [place], [place]. I don't have access to these [...] rash shortly before presenting to [facility] in 2016 with headaches and [...] and stayed on Lovenox Hgb 13.1 @ [facility] Recommended ER if persisting bleeding but she [...] and at age 69. Both lived in [facility] but she was adopted. She was not able to see ID in October and will be seeing Dr. Baugh next week. Also will have her see Dr. Hamlin for her clotting disorder and make any other recommendations to optimize her treatment. Updated Visit, October 08, 2020: Telephone only Received call from pt stating she was seen in [facility] for numbness in her chest, throat, and extremities, and sob which has been worsening over the last week. We arranged a telephone visit for her franci questions with me. Sanna Rendon is a 34 year old female seen for Hypercoagulable state and recent concerns and symptoms that required her to be seen at [facility]. She went to the ER with Gradual worsening of breathing after progressive tingling of fingers and legs. She currently remains very fatigued even though she is sleeping well. Now recalls that before her stroke she remembers having a bull's eye rash and was seen with severe headaches in [facility] was found to have a [...] a root canal and was sent to [facility] [place] MRI which was negative but non-contrasted. [...] was seen by Dr. Humera Hyde in [place] as well and was found to have [...] CPE Hematology and Oncology Services Provided at: [place], [place] CC: MD Wilton Day, [address] [place] [address] Humaira Gaviria MD [address] [place] [id number] MD Cosmo Kingston MD Michael Blank, MD documented in this encounterAdena Fayette [facility] Center02-01-2024 Instructions* Patient Instructions* Kristofer Calix [...] TSH, Calcium with CMP documented in this encounterAdena Fayette Medical Center01-26-2024 Hospital Discharge instructions Patient Education [...] your ears completely after. General instructions Take kahw-esf-kctxuyr and prescription medicines only as told by [...] provider. Document Revised: 06/27/2021 Document Reviewed: 06/27/2021 [employer] Patient Education 2022 [employer]. 05/25/2023 12:02:06 Dyshidrotic Eczema Dyshidrotic Eczema [...] care provider who specializes in skin conditions (lace inspector) tohelp diagnose and treat this condition. How [...] locks in moisture. Medicines Take and apply qvps-lga-xbbbdqo and prescription medicines only as told by [...] provider. Document Revised: 01/24/2021 Document Reviewed: 01/24/2021 [employer] Patient Education 2022 [employer]. 05/25/2023 12:02:02 Allergies, Adult, Aagx-be-Rgfo Allergies, Adult An allergy means that your [...] instructions at home: Medicines Take or apply yrjy-nyo-apbsaiw and prescription medicines only as told by [...] to the hospital. Summary Take or apply tunk-qih-okrtxrt and prescription medicines only as told by [...] provider. Document Revised: 02/25/2020 Document Reviewed: 02/25/2020 [employer] Patient Education 2022 [employer]. Follow Up Care 05/21/2023 12:21:27 With:PRAVEEN RESENDEZ FAAFP, Penelope Tony, CHRIS, PED Address: [facility] [address], [place] [address]- When:Within 2 Month(s) [facility] 11-20-2023 History of Present illness Narrative* Kristofer Calix MD - 03/19/2023 4:45 PM EST Images from the original note were not included. NAME: Sanna Rendon CLINIC NO.: [id number] DATE OF SERVICE: March 19, 2023 (Levon) [...] visit. Either the patient or their legal insurance claim representative has been informed of the risks and benefits of -- and alternatives to -- treatment through a remote evaluation andconsents to proceed with the evaluation remotely. CC: hypercoag state. ASSESSMENT: 37 year old woman 25 weeks presents with a prior history of CVA in 2016 and anantiphospholipid antibody that was identified much later in 2018. These were found in [place], [place]. I don't have access to these [...] rash shortly before presenting to [facility] in 2016 with headaches and [...] and stayed on Lovenox Hgb 13.1 @ [facility] Recommended ER if persisting bleeding but she [...] and at age 69. Both lived in [facility] but she was adopted. She was not able to see ID in October and will be seeing Dr. Baugh next week. Also will have her see Dr. Hamlin for her clotting disorder and make any other recommendations to optimize her treatment. Updated Visit, October 08, 2020: Telephone only Received call from pt stating she was seen in [facility] for numbness in her chest, throat, and extremities, and sob which has been worsening over the last week. We arranged a telephone visit for her chanw questions with me. Sanna Rendon is a 34 year old female seen for Hypercoagulable state and recent concerns and symptoms that required her to be seen at [facility]. She went to the ER with Gradual worsening of breathing after progressive tingling of fingers and legs. She currently remains very fatigued even though she is sleeping well. Now recalls that before her stroke she remembers having a bull's eye rash and was seen with severe headaches in [facility] was found to have a [...] a root canal and was sent to [facility] [place] MRI which was negative but non-contrasted. [...] was seen by Dr. Humera Hyde in [place] as well and was found to have [...] CPE Hematology and Oncology Services Provided at: [place], [place] CC: MD Wilton Day, [address] [place] [address] Humaira Gaviria MD [address] [place] [id number] MD Cosmo Kingston MD Michael Blank, MD documented in this encounterAdena Fayette Medical Center11-20-2023 Instructions* Patient Instructions* Kristofer Calix MD - 03/19/2023 4:44 PM EST Continue Lovenox - patient prefers 40 mg (rather than rec 80mg) Take B12 supplement in the form of a sublingual tablet. Take Vitamin D3 5000 international unit(s) daily Check labs in 8 weeks Phone / Virtual call after documented in this encounterAdena Fayette Medical Center10-19-2023 Hospital Discharge instructions Patient Education 02/15/2023 10:13:08 Ear Drops, Adult, Jmtk-qw-Sihm Ear Drops, Adult Your doctor has found [...] cannot use soap and water, use [employer] teacher [employer]. 2.Make sure your ears are clean and [...] you cannot use soapand water, use hand teacher [employer]. Follow these instructions at home: Use the [...] provider. Document Revised: 02/11/2020 Document Reviewed: 02/11/2020 [employer] Patient Education 2022 [employer] 02/15/2023 10:13:05 Otitis Externa, Ynuj-yp-Ukvj Otitis Externa Otitis externa is an infection [...] if you start to feel better. Take wujl-xit-cgibgmd and prescription medicines only as told by [...] provider. Document Revised: 06/29/2021 Document Reviewed: 06/29/2021 [employer] Patient Education 2022 [employer]. Follow Up Care 02/14/2023 12:28:12 With:PRAVEEN RESENDEZ FAAFP, Penelope Tony, CHRIS, PED [address] [address] [facility] [place] [address]- When:Within 2 Month(s) [facility] 08-25-2023 Hospital Discharge instructions [...] including vitamins, herbs, eye drops, creams, and bkrj-qli-hzhpqki medicines. ?Whether you are or may be [...] provider. Document Revised: 12/28/2021 Document Reviewed: 11/19/2020 [employer]ighter[employer] Patient Education 2022 [employer]. 12/22/2022 15:19:23 Fatigue Fatigue If you [...] Follow these instructions at home: Medicines Take eztn-uye-znllhov and prescription medicines only as told by [...] the National Suicide Prevention Lifeline at or 888. This is open 24 hours a day. Text the Crisis Text Line at 093269. Summary If you have fatigue, you feel [...] provider. Document Revised: 02/06/2022 Document Reviewed: 02/06/2022 [employer] Patient Education 2022 [employer]. Follow Up Care 12/22/2022 10:22:02 With:Lourdes Urrutia Address: [facility] [address], [facility] [place] [address]- When: only if needed [facility] 08-25-2023 Instructions* Patient Instructions* Kristofer Calix MD - 12/22/2022 10:13 AM EDT Continue Lovenox - patient prefers 40 mg (rather than rec 80mg) Take B12 supplement in the form of a sublingual tablet. Take Vitamin D3 5000 international unit(s) daily Check labs in 8 weeks Phone / Virtual call after documented in this encounterAdena Fayette Medical Center08-25-2023 History of Present illness Narrative* Kristofer Calix MD - 12/22/2022 9:55 AM EDT Images from the original note were not included. Kristofer Calix MD NAME: Sanna Rendon CLINIC NO.: [id number] DATE OF SERVICE: December 22, 2022 (Levon) [...] visit. Either the patient or their legal insurance claim representative has been informed of the risks and benefits of -- and alternatives to -- treatment through a remote evaluation andconsents to proceed with the evaluation remotely. CC: hypercoag state. ASSESSMENT: 37 year old woman with a prior history of CVA in 2016 and an antiphospholipid antibody that was identified much later in 2018. These were found in [place], [place]. I don't have access to these [...] rash shortly before presenting to [facility] in 2016 with headaches and [...] and stayed on Lovenox Hgb 13.1 @ [facility] Recommended ER if persisting bleeding but she [...] and at age 69. Both lived in [facility] but she was adopted. She was not able to see ID in October and will be seeing Dr. Baugh next week. Also will have her see Dr. Hamlin for her clotting disorder and make any other recommendations to optimize her treatment. Updated Visit, October 08, 2020: Telephone only Received call from pt stating she was seen in [facility] for numbness in her chest, throat, and extremities, and sob which has been worsening over the last week. We arranged a telephone visit for her franci questions with me. Sanna Rendon is a 34 year old female seen for Hypercoagulable state and recent concerns and symptoms that required her to be seen at [facility]. She went to the ER with Gradual worsening of breathing after progressive tingling of fingers and legs. She currently remains very fatigued even though she is sleeping well. Now recalls that before her stroke she remembers having a bull's eye rash and was seen with severe headaches in [place], [place] - was found to have a [...] a root canal and was sent to [facility] [place] MRI which was negative but non-contrasted. [...] was seen by Dr. Humera Hyde in [place] as well and was found to have [...] CPE Hematology and Oncology Services Provided at: [place], [place] CC: MD Wilton Day, [address] [facility] [place] [address] Humaira Gaviria MD [address] [facility] [id number] MD Cosmo Kingston MD Michael Blank, MD documented in this encounterAdena Fayette Medical Center08-16-2023 Miscellaneous Notes* Telephone Encounter - [...] - 12/11/2022 4:[address] uLna, patient did not have her labs drawn and will need this rescheduled. Call placed to patient, no answer and unable to leave message; line just rings busy . Will attempt to contact patientat a later time. Roberta Haskins documented in this encounterAdena Fayette Medical Center06-23-2023 Hospital Discharge instructions Patient Education [...] your health care provider or diet and director of food and nutrition services (dietitian). This may include: ?Eating fewer calories. [...] provider. Document Revised: 06/12/2021 Document Reviewed: 06/12/2021 Lightera Patient Education 2022 [employer]. 10/20/2022 10:37:18 Preventing Type 2 Diabetes [...] with a registered dietitian. This diet and director of food and nutrition services can help you make a healthy eating plan and help you understand portion sizes and food labels. Where to find support Ask your health care provider to recommend a registered dietitian, a certified diabetes care and cooperative education coordinator, or a weight loss program. Look for local or online weight loss groups. Join a gym, fitness club, or outdoor activity group, such as a walking club. Where to find more information For help and guidance and to learn more about diabetes and diabetes prevention, visit: [place] Diabetes Association (ADA): www.diabetes.org National [place] of Diabetes and Digestive and Kidney Diseases: [...] provider. Document Revised: 07/11/2021 Document Reviewed: 07/11/2021 [employer]ightera Patient Education 2022 [employer]. 10/20/2022 10:37:17 Preventing Hypoglycemia Preventing Hypoglycemia [...] your hypoglycemia. Where to find more information [place] Diabetes Association: www.diabetes.org National [place] of Diabetes and Digestive and Kidney Diseases: [...] provider. Document Revised: 03/17/2021 Document Reviewed: 03/17/2021 [employer]ightera Patient Education 2022 [employer]. 10/20/2022 10:37:16 Gestational Diabetes Mellitus, Diagnosis, Egwo-jr-Voxv Gestational Diabetes Mellitus, Diagnosis Gestational diabetes mellitus [...] follow-up visits. Where to find more information [place] Diabetes Association (ADA): diabetes.org Association of Diabetes Care & Education Specialists (ADCES): diabeteseducator.org Centers for Disease Control and Prevention (CDC): cdc.gov [place] Association: americanpregnancy.org U.S. Department of Agriculture MyPlate: [...] provider. Document Revised: 09/20/2020 Document Reviewed: 09/20/2020 Lightera Patient Education 2022 [employer]. Follow Up Care 09/19/2022 14:47:09 With:PRAVEEN RESENDEZ FAAFP, CHRIS Perez, PED Address: [place] [address]- When:Within 3 Month(s) [facility] 06-01-2023 History of Present illness Narrative* Kristofer Calix MD - 09/28/2022 5:00 PM EDT Images from the original note were not included. Kristofer Calix MD NAME: Sanna Rendon CLINIC NO.: [id number] DATE OF SERVICE: September 28, 2022 (Levon) [...] visit. Either the patient or their legal insurance claim representative has been informed of the risks and benefits of -- and alternatives to -- treatment through a remote evaluation andconsents to proceed with the evaluation remotely. CC: hypercoag state. ASSESSMENT: 36 year old woman 25 weeks presents with a prior history of CVA in 2016 and anantiphospholipid antibody that was identified much later in 2018. These were found in [place], [place]. I don't have access to these [...] rash shortly before presenting to [facility] in 2016 with headaches and [...] and stayed on Lovenox Hgb 13.1 @ [facility] Recommended ER if persisting bleeding but she [...] and at age 69. Both lived in [facility] but she was adopted. She was not able to see ID in October and will be seeing Dr. Baugh next week. Also will have her see Dr. Hamlin for her clotting disorder and make any other recommendations to optimize her treatment. Updated Visit, October 08, 2020: Telephone only Received call from pt stating she was seen in [facility] for numbness in her chest, throat, and extremities, and sob which has been worsening over the last week. We arranged a telephone visit for her toreview questions with me. Sanna Rendon is a 34 year old female seen for Hypercoagulable state and recent concerns and symptoms that required her to be seen at [facility]. She went to the ER with Gradual worsening of breathing after progressive tingling of fingers and legs. She currently remains very fatigued even though she is sleeping well. Now recalls that before her stroke she remembers having a bull's eye rash and was seen with severe headaches in [place], [place] - was found to have a [...] a root canal and was sent to [facility] [place] MRI which was negative but non-contrasted. [...] was seen by Dr. Humera Hyde in [place] as well and was found to have [...] CPE Hematology and Oncology Services Provided at: [place], [place] CC: MD Wilton Day, [address] [place] [address] Humaira Gaviria MD [address] [place] [address] [place] [address] MD Cosmo Kingston MD Michael Blank, MD documented in this encounterAdena Fayette Medical Center05-24-2023 Miscellaneous Notes* Telephone Encounter - Cheri Acharya Sec - 09/20/2022 7:06 AM EDT Cxed appt * Telephone Encounter - Valeri Yeung RN - 09/19/2022 3:29 PM EDT Patient would like to have labs drawn at [facility]. Called [facility] lab to get fax number. Lab orders faxed to [phone] Valeri Yeung RN PSS: Can you cancel lab appointment for 09/21/22 here. Thanks. Valeri Yeung RN documented in this encounterAdena Fayette Medical Center04-04-2023 Instructions* Patient Instructions* Kristofer Calix MD - 08/01/2022 10:56 AM EDT Continue Lovenox - patient prefers 40 mg (rather than rec 80mg) 8 weeks - labs Phone / Virtual call after documented in this encounterAdena Fayette Medical Center03-30-2023 History of Present illness Narrative* Kristofer Calix MD - 07/27/2022 1:18 PM EDT NAME: Sanna Rendon CLINIC NO.: [id number] DATE OF SERVICE: July 27, 2022 (Levon) [...] later in 2018. These were found in [place], [place]. I don't have access to these [...] rash shortly before presenting to [facility] in 2016 with headaches and [...] and at age 69. Both lived in [facility] but she was adopted. She was not able to see ID in October and will be seeing Dr. Baugh next week. Also will have her see Dr. Hamlin for her clotting disorder and make any other recommendations to optimize her treatment. Updated Visit, October 08, 2020: Telephone only Received call from pt stating she was seen in [facility] for numbness in her chest, throat, and extremities, and sob which has been worsening over the last week. We arranged a telephone visit for her domingoeview questions with me. Sanna Rendon is a 34 year old female seen for Hypercoagulable state and recent concerns and symptoms that required her to be seen at [facility]. She went to the ER with Gradual worsening of breathing after progressive tingling of fingers and legs. She currently remains very fatigued even though she is sleeping well. Now recalls that before her stroke she remembers having a bull's eye rash and was seen with severe headaches in [place], [place] - was found to have a [...] a root canal and was sent to [facility] [place] MRI which was negative but non-contrasted. [...] was seen by Dr. Humera Hyde in [place] as well and was found to have [...] which included preparing to see the patient, vhsa-du-ooqb patient care, completing clinical documentation, obtaining and/or reviewing separately obtained history, performing a medically appropriate examination, counseling and educating the pat ient/family/caregiver, ordering medications, tests, or procedures, independently interpreting results (not separately reported), and care coordination (not separately reported). Kristofer Calix MD, CPE Hematology and Oncology Services Provided at: [place], [place] CC: MD Wilton Day, [address] [place] [address] Humaira Gaviria MD [address] [facility] [address] MD Cosmo Kingston MD Michael Blank, MD documented in this encounterAdena Fayette Medical Center12-07-2022 History of Present illness Narrative* [...] to standard infusion rate. documented in this encounterAdena Fayette Medical Center12-06-2022 Miscellaneous Notes* Telephone Encounter - [...] agreeable. Meme Gonzalez RN documented in this encounterAdena Fayette Medical Center12-01-2022 Miscellaneous Notes* Telephone Encounter - [...] not included. Kristofer Calix MD [facility] Triage Pool; [facility] Clerical Pool She needs iron MUNIRA - if monoferric isn't approved, lets get her in weekly for Venna for. * Telephone Encounter - Roberta Haskins - 03/27/2022 2:57 PM EST 2. Consider IV iron a. Triage nurse to please call iron results when available this week documented in this encounterAdena Fayette Medical Center11-28-2022 Instructions* Patient Instructions* Kristofer Calix MD - 03/27/2022 2:51 PM EST Continue Lovenox - patient prefers 40 mg (rather than rec 80mg) Consider IV iron Triage nurse to please call iron results when available this week Will recheck antiphospholipid antibodies as ordered and every 6 months. RTC in 8 weeks - labs same day. documented in this encounterAdena Fayette Medical Center11-28-2022 History of Present illness Narrative* Kristofer Calix MD - 03/27/2022 2:15 PM EST Images from the original note were not included. NAME: Sanna Rendon CLINIC NO.: [id number] DATE OF SERVICE: March 27, 2022 (radhaelaina) [...] later in 2018. These were found in [place], [place]. I don't have access to these [...] rash shortly before presenting to [facility] in 2016 with headaches and [...] and at age 69. Both lived in [facility] but she was adopted. She was not able to see ID in October and will be seeing Dr. Baugh next week. Also will have her see Dr. Hamlin for her clotting disorder and make any other recommendations to optimize her treatment. Updated Visit, October 08, 2020: Telephone only Received call from pt stating she was seen in [facility] for numbness in her chest, throat, and extremities, and sob which has been worsening over the last week. We arranged a telephone visit for her chanw questions with me. Sanna Rendon is a 34 year old female seen for Hypercoagulable state and recent concerns and symptoms that required her to be seen at [facility]. She went to the ER with Gradual worsening of breathing after progressive tingling of fingers and legs. She currently remains very fatigued even though she is sleeping well. Now recalls that before her stroke she remembers having a bull's eye rash and was seen with severe headaches in [place], [place] - was found to have a [...] a root canal and was sent to [facility] for MRI which was negative but non-contrasted. [...] was seen by Dr. Humera Hyde in [place] as well and was found to have [...] which included preparing to see the patient, [id number] patient care, completing clinical documentation, obtaining and/or reviewing separately obtained history, performing a medically appropriate examination, counseling and educating the pat ient/family/caregiver, ordering medications, tests, or procedures, independently interpreting results (not separately reported), and care coordination (not separately reported). Kristofer Calix MD, CPE Hematology and Oncology Services Provided at: [place], [place] CC: MD Wilton Day, [address] [place] [address] Humaira Gaviria MD [address] [place] [id number] MD Cosmo Kingston MD Michael Blank, MD documented in this encounterAdena [facility]10-03-2022 Instructions* Patient Instructions* Kristofer Calix MD - 01/30/2022 12:[address] Hamlin's expertise and will prescribe Lovenox - patient prefers 40 mg (rather than rec 80mg) Will recheck antiphospholipid antibodies as ordered and every 6 months. RTC in 8 weeks - labs same day. documented in this encounterAdena [facility] Center10-03-2022 History of Present illness Narrative* Kristofer Calix MD - 01/30/2022 11:59 AM EDT Images from the original note were not included. NAME: Sanna Rendon CLINIC NO.: [id number] DATE OF SERVICE: January 30, 2022 Some [...] later in 2018. These were found in [place], [place]. I don't have access to these [...] rash shortly before presenting to [facility] in 2016 with headaches and [...] and at age 69. Both lived in [facility] but she was adopted. She was not able to see ID in October and will be seeing Dr. Baugh next week. Also will have her see Dr. Hamlin for her clotting disorder and make any other recommendations to optimize her treatment. Updated Visit, October 08, 2020: Telephone only Received call from pt stating she was seen in [facility] for numbness in her chest, throat, and extremities, and sob which has been worsening over the last week. We arranged a telephone visit for her chanw questions with me. Sanna Rendon is a 34 year old female seen for Hypercoagulable state and recent concerns and symptoms that required her to be seen at [facility]. She went to the ER with Gradual worsening of breathing after progressive tingling of fingers and legs. She currently remains very fatigued even though she is sleeping well. Now recalls that before her stroke she remembers having a bull's eye rash and was seen with severe headaches in [facility] was found to have a [...] a root canal and was sent to [facility] [place] MRI which was negative but non-contrasted. [...] was seen by Dr. Humera Hyde in [place] as well and was found to have [...] which included preparing to see the patient, erwe-or-uqso patient care, completing clinical documentation, obtaining and/or reviewing separately obtained history, performing a medically appropriate examination, counseling and educating the pat ient/family/caregiver, and ordering medications, tests, or procedures. Kristofer Calix MD, [place], [place] CC: MD Chalino Dayy Jeanine Herrmann, [address] [place] [address] Humaira Gaviria MD [address] [place] [id number] MD Cosmo Kingston MD Michael Blank, MD documented in this encounterAdena [facility] Center10-03-2022 Nurse Note* Serina Dawson MA - 01/30/2022 11:55 AM EDT Patient states she may be diagnosed with gestational diabetes, she was from 215 to 52 a couple hours later after eating wheat cereal. She sees OB tomorrow. Serina Dawson MA documented in this encounterAdena [facility] Center09-02-2022 Miscellaneous Notes* Telephone Encounter - Tonja Pope RN - 12/30/2021 10:15 AM EDT Call received from Sanna requesting refill of Lovenox 40 mg to be sent to [facility] in [place]. FELY: Please review and approve if you agree. Tonja Chery RN documented in this encounterAdena [facility] Center06-13-2022 Miscellaneous Notes* Telephone Encounter - Meme Easton RN - 10/10/2021 12:15 PM EDT Received call from pt requesting refill of Lovenox 40 mg to be sent to [facility] in [place]. FELY: Pt also states she had one episode of blood in her stool which was dripping blood which concerned her. She is not ready to move to 80 mg of Lovenox at this time. Order pending. Please review and sign if agreeable. Meme Easton RN documented in this encounterAdena [facility] Center05-10-2022 Miscellaneous Notes* Telephone Encounter - [...] agreeable. Meme Easton RN documented in this encounterAdena Fayette [facility] Center05-09-2022 Miscellaneous Notes* Telephone Encounter - [...] advise. Meme Easton RN documented in this encounterAdena Fayette [facility] Center04-25-2022 Miscellaneous Notes* Telephone Encounter - [...] Thoughts? Meme Easton RN documented in this encounterAdena Fayette Medical Center04-22-2022 Hospital Discharge instructions Patient Education [...] including vitamins, herbs, eye drops, creams, and qruv-kxp-txfeetm medicines. ?Whether you are or may be [...] 02/11/2008 Document Revised: 08/05/2019 Document Reviewed: 02/18/2018 [employer] Patient Education 2020 [employer] 08/19/2021 13:02:21 Dysuria Dysuria Dysuria is [...] alcohol may irritate the prostate. Medicines Take zhmv-emo-qoxentd and prescription medicines only as told by [...] 01/12/2005 Document Revised: 03/29/2018 Document Reviewed: 01/31/2018 [employer] Patient Education 2020 [employer]. 08/19/2021 13:02:17 Budget-Friendly Healthy Eating Budget-Friendly [...] frozen fruits, and frozen vegetables. Avoid buying wvgvs-aa-rns foods, such as pre-cut fruits and vegetables [...] 12/18/2014 Document Revised: 04/17/2018 Document Reviewed: 04/17/2018 [employer] Patient Education 2020 [employer]. 08/19/2021 13:02:15 BMI for Adults BMI [...] height. This can be done either in French (U.S[place] or metric measurements. Note that charts are available to help you find your BMI quickly and easily without having to do these calculations yourself. To calculate your BMI in French (U.S.) measurements, your health care provider will: [...] medical problems. BMI can be measured using French measurements or metric measurements. To interpret your [...] 12/26/2004 Document Revised: 03/29/2018 Document Reviewed: 02/27/2018 [employer] Patient Education 2020 [employer]. 08/19/2021 13:02:11 Paresthesia Paresthesia Paresthesia is [...] fried or sweet foods. General instructions Take bpnp-ars-zahxkpc and prescription medicines only as told by [...] 04/06/2003 Document Revised: 05/12/2019 Document Reviewed: 04/25/2018 [employer] Patient Education 2020 [employer]. Follow Up Care 08/19/2021 09:17:52 With:PRAVEEN RESENDEZ FAAFP, Penelope Tony, CHRIS, PED Address: [address], [place] [address]- When:1 to 2 weeks [facility] [place] 04-22-2022 Evaluation + Plan note Future Scheduled Tests Radiology* XR Spine Lumbosacral Minimum 4 Views 08/19/21 [facility]04-07-2022 Miscellaneous Notes* Telephone Encounter - Roberta Haskins - 08/04/2021 3:36 PM EDT Patient is scheduled for 09/[address] Elliott. Roberta Haskins * Telephone Encounter - Roberta Divine - 08/01/2021 1:05 PM EDT Sent Email to [facility] to refer patient back to Dr. Cosmo Elliott Dx: Primary hypercoagulable state (HCC) Roberta Divine documented in this encounterAdena Fayette Medical Center04-04-2022 Nurse Note* Ebony Redding Ma - 08/01/2021 12:48 PM EDT UA ran as ordered. Ebony Redding Ma documented in this encounterAdena Fayette Medical Center03-28-2020 Evaluation + Plan note Future Appointments Appointment Date:07/25/2024 02:30:00 PM Scheduled [facility] Type:CV EKG (FT) Appointment Date:07/25/2024 03:00:00 PM Scheduled Provider: [facility] Appointment Type:CV Holter/Event (FT) Appointment Date:09/09/2024 08:20:00 AM Scheduled Provider:Penelope CASAS DO, FAAFP Location:[facility] Appointment Type:FM Open Future Scheduled Tests Laboratory* HgbA1c 08/05/24 * HgbA1c 11/04/24 Radiology* CT Soft Tissue Neck w/ Contrast 11/12/23 [facility] 03-28-2020 Evaluation + Plan note Future Appointments Appointment Date:07/25/2024 02:30:00 PM Scheduled Provider: [facility] Appointment Type:CV EKG (FT) Appointment Date:07/25/2024 03:00:00 PM Scheduled Provider: [facility] Appointment Type:CV Holter/Event (FT) Appointment Date:09/09/2024 08:20:00 AM Scheduled Provider:Penelope CASAS DO, FAAFP Location:[facility] Appointment Type:FM Open Diagnostic Tests Pending * Hepatitis B Surface Antigen 07/09/24 * HCV Antibody RFX to Quant PCR 07/09/24 * Hep Be Ag 07/09/24 * HIV Screen 4th Generation wRfx 07/09/24 Future Scheduled Tests Laboratory* HgbA1c 08/05/24 * HgbA1c 11/04/24 Radiology* CT Soft Tissue Neck w/ Contrast 11/12/23 [facility] Evaluation + Plan note Future Appointments Appointment Date:11/08/2021 12:40:00 PM Scheduled Provider:Penelope CASAS DO, FAAFP Location:[facility] Appointment Type:FM Open Future Scheduled Tests Radiology* XR Spine Lumbosacral Minimum 4 Views 08/19/21 [facility] [place] Evaluation + Plan note Future Appointments Appointment Date:11/08/2021 12:40:00 PM Scheduled Provider:Penelope CASAS DO, FAAFP Location:[facility] Appointment Type:FM Open Diagnostic Tests Pending * Urine Culture 08/19/21 Future Scheduled Tests Radiology* XR Spine Lumbosacral Minimum 4 Views [facility]19/21 [facility] App[facility]ments Appointment Date:09/21/2022 10:00:00 AM Scheduled Provider:Penelope CASAS DO, FAAFP Location:[facility]: [facility] Future Appointments Appointment Date:10/20/2022 09:40:00 AM Scheduled Provider:Penelope CASAS DO, FAAFP [facility] App[facility]ments Appointment Date:01/26/2023 10:40:00 AM Scheduled Provider:Penelope CASAS DO, FAAFP Location:[facility] Appointment Type: Open [facility] Evaluation + Plan note Future Appointments Appointment Date:04/17/2023 02:20:00 PM Scheduled Provider:Penelope CASAS DO, FAAFP Location:[facility] Appointment Type:FM Open Future Scheduled Tests Laboratory* HgbA1c 02/15/23 * Thyroid Stimulating Hormone 02/15/23 * Thyroid Stimulating Hormone 01/11/23 [facility] Evaluation + Plan note Future Appointments Appointment Date:07/24/2023 01:20:00 PM Scheduled Provider:Penelope CASAS DO, FAAFP Location:[facility] Appointment Type:FM Open Future Scheduled Tests Laboratory* HgbA1c 02/15/23 * Thyroid Stimulating Hormone 02[facility]15/23 [facility] App[facility]ments Appointment Date:07/24/2023 01:20:00 PM Scheduled Provider:Penelope CASAS DO, FAAFP Location:[facility] Appointment Type: Open [facility] Evaluation + Plan note Future Appointments Appointment Date:12/03/2023 12:40:00 PM Scheduled Provider:Penelope CASAS DO, FAAFP Location:[facility] Appointment Type:FM Open Future Scheduled Tests Laboratory* HgbA1c 08/03/23 [facility] evaluation + Plan note Future Appointments Appointment Date:12/03/2023 12:40:00 PM Scheduled Provider:Penelope CASAS DO, FAAFP Location:[facility] Appointment Type:FM Open Future Scheduled Tests Laboratory* Sedimentation Rate Automated 11/09/23 * HgbA1c 08/03/23 * Amylase Level 11/09/23 * Cortisol 11/09/23 * C-Reactive Protein 11/09/23 * T3 Free 11/09/23 * Thyroid Stimulating Hormone 11/09/23 * Free T4 11/09/23 * Vitamin B12 Level 11/09/23 Radiology* MRI Brain w/o Contrast 11/09/23 * MRI Orbit Face Neck w/o contrast 11/09/23 [facility] evaluation + Plan note Future Appointments Appointment Date:01/11/2024 08:15:00 PM Scheduled Provider: [facility] Type:SCALE TECHNICIAN Sleep Study PSG () Appointment Date:01/29/2024 01:20:00 PM Scheduled Provider:Penelope CASAS DO, FAAFP Location:[facility] Appointment Type:FM Open Diagnostic Tests Pending * Cortisol 12/06/23 * T3 Free 12/06/23 Future Scheduled Tests Laboratory* HgbA1c 08/03/23 Radiology* CT Soft Tissue Neck w/ Contrast 11/12/23 [facility] evaluation + Plan note Future Appointments Appointment Date:05/16/2024 11:40:00 AM Scheduled Provider:Penelope CASAS DO, FAAFP Location:[facility] Appointment Type:FM Open Future Scheduled Tests Laboratory* HgbA1c 02/05/24 * HgbA1c 05/07/24 * HgbA1c 08/05/24 * HgbA1c 11/04/24 * HgbA1c 08/03/23 * HIV Screen 4th Generation wRfx 02/05/24 * HIV Screen 4th Generation wRfx 02/05/24 * Lipid Panel 02/05/24 Radiology* CT Soft Tissue Neck w/ Contrast 11/12/23 [facility] evaluation + Plan note Future Appointments Appointment Date:05/16/2024 11:40:00 AM Scheduled Provider:Penelope CASAS DO, FAAFP Location:[facility] Appointment Type:FM Open Future Scheduled Tests Laboratory* HgbA1c 05/07/24 * HgbA1c 08/05/24 * HgbA1c 11/04/24 Radiology* CT Soft Tissue Neck w/ Contrast 11/12/23 [facility] evaluation + Plan note Future Appointments Appointment Date:05/16/2024 11:40:00 AM Scheduled Provider:Penelope CASAS DO, FAAFP Location:[facility] Appointment Type:FM Open Diagnostic Tests Pending * HIV Screen 4th Generation wRfx 02/23/24 Future Scheduled Tests Laboratory* HgbA1c 05/07/24 * HgbA1c 08/05/24 * HgbA1c 11/04/24 Radiology* CT Soft Tissue Neck w/ Contrast 11/12/23 [facility] evaluation + Plan note Future Appointments Appointment Date:05/16/2024 11:40:00 AM Scheduled Provider:Penelope CASAS DO, FAAFP Location:[facility] Appointment Type:FM Open Future Scheduled Tests Laboratory* HgbA1c 08/05/24 * HgbA1c 11/04/24 Radiology* CT Soft Tissue Neck w/ Contrast 11/12/23 [facility] evaluation + Plan note Future Appointments Appointment Date:05/16/2024 11:40:00 AM Scheduled Provider:Penelope CASAS DO, FAAFP Location:[facility] Appointment Type:FM Open Diagnostic Tests Pending * Urine Culture 03/01/24 Future Scheduled Tests Laboratory* HgbA1c 08/05/24 * HgbA1c 11/04/24 Radiology* CT Soft Tissue Neck w/ Contrast 11/12/23 [facility] evaluation + Plan note Future Appointments Appointment Date:07/07/2024 02:20:00 PM Scheduled Provider:Penelope CASAS DO, FAAFP Location:[facility] Appointment Type:FM Open Future Scheduled Tests Laboratory* HgbA1c 08/05/24 * HgbA1c 11/04/24 Radiology* CT Soft Tissue Neck w/ Contrast 11/12/23 [facility] evaluation + Plan note Future Appointments Appointment Date:09/09/2024 08:20:00 AM Scheduled Provider:Penelope CASAS DO, FAAFP Location:[facility] Appointment Type:FM Open Future Scheduled Tests Laboratory* HgbA1c 08/05/24 * HgbA1c 11/04/24 Radiology* CT Soft Tissue Neck w/ Contrast 11/12/23 [facility] evaluation note* Diagnosis Infective urethritis- Primary Urethritis, unspecified documented in this encounter [facility]* Diagnosis Primary hypercoagulable state (HCC) Primary hypercoagulable state CVA, old, speech/language deficit Speech and language deficit, unspecified, 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 Hyposmolality and/or hyponatremia documented in this encounter [facility] note* Diagnosis Primary hypercoagulable state (HCC) Primary hypercoagulable state CVA, old, speech/language deficit Speech and language deficit, unspecified, 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 Hyposmolality and/or hyponatremia documented in this encounter [facility] note* Diagnosis Primary hypercoagulable state (HCC)- Primary Primary hypercoagulable state CVA, old, speech/language deficit Speech and language deficit, unspecified, late effect of cerebrovascular disease Antiphospholipid antibody syndrome (HCC) Primary hypercoagulable state Anemia, unspecified type documented in this encounter [facility] note* Diagnosis Iron deficiency anemia secondary to blood loss (chronic) Iron deficiency anemia of Anemia of mother, complicating , childbirth, or the puerperium, unspecified as to episode of care documented in this encounter [facility] note* 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 Iron deficiency anemia of Anemia of mother, complicating , childbirth, or the puerperium, unspecified as to episode of care documented in this encounter [facility] note* Diagnosis Primary hypercoagulable state (HCC) Primary hypercoagulable state CVA, old, speech/language deficit Speech and language deficit, unspecified, 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 Hyposmolality and/or hyponatremia documented in this encounter [facility] note* 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 Iron deficiency anemia of Anemia of mother, complicating , childbirth, or the puerperium, unspecified as to episode of care documented in this encounter [facility] note* Diagnosis Primary hypercoagulable state (HCC) Primary hypercoagulable state CVA, old, speech/language deficit Speech and language deficit, unspecified, 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 Hyposmolality and/or hyponatremia documented in this encounter [facility] note* Diagnosis Primary hypercoagulable state (HCC)- Primary Primary hypercoagulable state 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, old, speech/language deficit Speech and language deficit, unspecified, late effect of cerebrovascular disease [facility] Primary hypercoagulable state (HCC) Primary hypercoagulable state CVA, old, speech/language deficit Speech and language deficit, unspecified, 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 Hyposmolality and/or hyponatremia [facility]* Diagnosis Primary hypercoagulable state (HCC)- Primary Primary hypercoagulable state Iron deficiency anemia of Anemia of mother, complicating , childbirth, or the puerperium, unspecified as to episode of care Iron deficiency anemia secondary to blood loss (chronic) Vitamin D deficiency Unspecified vitamin D deficiency [facility] Diagnosis Primary hypercoagulable state (HCC)- Primary Primary hypercoagulable state Iron deficiency anemia secondary to blood loss (chronic) Vitamin D deficiency Unspecified vitamin D deficiency CVA, old, speech/language deficit Speech and language deficit, unspecified, late effect of cerebrovascular disease Antiphospholipid antibody syndrome (HCC) Primary hypercoagulable state [facility]* Diagnosis Primary hypercoagulable state (HCC)- Primary Primary hypercoagulable state CVA, old, speech/language deficit Speech and language deficit, unspecified, late effect of cerebrovascular disease Hypercalcemia Vitamin D deficiency Unspecified vitamin D deficiency Iron deficiency anemia secondary to blood loss (chronic) Malaise and fatigue Other malaise and fatigue [facility]* Diagnosis Vitamin D deficiency- Primary Unspecified vitamin D deficiency 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) Antiphospholipid antibody syndrome (HCC) Primary hypercoagulable state Malaise and fatigue Other malaise and fatigue [facility] Vitamin D deficiency- Primary Unspecified vitamin D deficiency 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) [facility]* 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 [facility]* Diagnosis Iron deficiency anemia of - Primary Anemia of mother, complicating , childbirth, or the puerperium, unspecified as to episode of care Iron deficiency anemia secondary to blood loss (chronic) [facility]* Diagnosis Iron deficiency anemia of - Primary Anemia of mother, complicating , childbirth, or the puerperium, unspecified as to episode of care Iron deficiency anemia secondary to blood loss (chronic) documented [facility] this encounter [facility] 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 Vitamin D deficiency Unspecified vitamin D deficiency Malaise and fatigue Other malaise and fatigue documented in this encounter [facility]* Diagnosis Primary hypercoagulable state (HCC) Primary hypercoagulable state CVA, old, speech/language deficit Speech and language deficit, unspecified, 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 Hyposmolality and/or hyponatremia documented in this encounter [facility]* Diagnosis Missed menses , unspecified gestational age Encounter for supervision of normal first in first trimester Hypothyroidism (acquired) ([facility]/HCC) Unspecified hypothyroidism Low vitamin D level documented in this encounter [facility]* Diagnosis 14 weeks gestation of Second trimester state, incidental Confirm viability with history of miscarriage, ultrasound Encounter for routine screening for malformation using ultrasonics documented in this encounter [facility] HealthcareEvaluation noteNo assessment information availableHenry [facility] Work Phone: Evaluation note* Diagnosis Primary hypercoagulable state (HCC)- Primary Primary hypercoagulable state CVA, old, speech/language deficit Speech and language deficit, unspecified, 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) Vitamin D deficiency Unspecified vitamin D deficiency Antiphospholipid antibody syndrome (HCC) Primary hypercoagulable state documented in this encounter [facility] Diagnosis Follow-up visit after miscarriage Abnormal TSH History of thyroid disease documented in this encounter [facility] Healthcare[facility] note* Diagnosis Vaginal bleeding Other specified noninflammatory disorder of vagina Dizziness Dizziness and giddiness Abnormal TSH Vaginal discharge Leukorrhea, not specified as infective Pelvic pain in female Unspecified symptom associated with female genital organs documented in this encounter [facility] HealthcareEvaluation note* Diagnosis Irregular menstrual cycle documented in this encounter [facility] HealthcareEvaluation note* Diagnosis Primary hypercoagulable state (HCC) Primary hypercoagulable state CVA, old, speech/language deficit Speech and language deficit, unspecified, 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 Hyposmolality and/or hyponatremia [facility] Antiphospholipid antibody positive- Primary Other and unspecified nonspecific immunological findings Iron deficiency anemia secondary to blood loss (chronic) Malaise and fatigue Other malaise and fatigue Vitamin D deficiency Unspecified vitamin D deficiency [facility] Diagnosis Amenorrhea Absence of menstruation Missed menses , unspecified gestational age Encounter for supervision of normal first in first trimester Thyroid disease ([facility]/HCC) Unspecified disorder of thyroid documented in this encounter [facility] HealthcareEvaluation note* Diagnosis Gestational diabetes mellitus (GDM), antepartum, gestational diabetes method of control unspecified- Primary documented in [facility]* Diagnosis Primary hypercoagulable state (HCC) Primary hypercoagulable state CVA, old, speech/language deficit Speech and language deficit, unspecified, 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 Hyposmolality and/or hyponatremia documented in this [facility] Diagnosis Primary hypercoagulable state (HCC)- Primary Primary hypercoagulable state CVA, old, speech/language deficit Speech and language deficit, unspecified, 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 Hyposmolality and/or hyponatremia Personal history of TIA (transient ischemic attack) Transient ischemic attack (TIA), and cerebral infarction without residual deficits [facility] this [facility] Diagnosis Second trimester (HHS-HCC) state, incidental 13 weeks gestation of ([facility]) Thyroid disease Unspecified disorder of thyroid Multigravida of advanced maternal age in second trimester ([facility]) Gestational diabetes mellitus (GDM), antepartum, gestational diabetes method of control unspecified([facility]) Elevated glucose tolerance test Impaired glucose tolerance test documented in this encounter [facility] HealthcareEvaluation note* Diagnosis Gestational diabetes mellitus (GDM), antepartum, gestational diabetes method of control unspecified- Primary documented in this encounter [facility]* Diagnosis Second trimester (HHS-HCC) state, incidental 16 weeks gestation of ([facility]) Screening, , for anatomic survey ([facility]) Encounter for anatomic survey Vaginal discharge Leukorrhea, not specified as infective Sinus headache Headache [facility] Insulin controlled gestational diabetes mellitus (GDM) in second trimester- Primary documented in this encounter [facility]* Diagnosis 19 weeks gestation of (HHS-HCC) Second trimester (HHS-HCC) state, incidental Thyroid disease Unspecified disorder of thyroid Multigravida of advanced maternal age in second trimester (HHS-HCC) Gestational diabetes mellitus (GDM), antepartum, gestational diabetes method of control unspecified(HHS-HCC) [facility] Diagnosis Gestational diabetes mellitus (GDM) in second trimester controlled on oral hypoglycemic drug- Primary documented in this encounter [facility]* Diagnosis Antiphospholipid antibody positive- Primary Other and unspecified nonspecific immunological findings Iron deficiency anemia secondary to blood loss (chronic) Vitamin D deficiency Unspecified vitamin D deficiency Primary hypercoagulable state (HCC) Primary hypercoagulable state [facility] Diagnosis Gestational diabetes mellitus (GDM) in second trimester controlled on oral hypoglycemic drug- Primary documented in this encounter [facility]* Diagnosis Multigravida of advanced maternal age in second trimester- Primary Antiphospholipid syndrome complicating , antepartum Gestational diabetes mellitus (GDM) in second trimester controlled on oral hypoglycemic drug Insulin controlled gestational diabetes mellitus (GDM) in second trimester AMA (advanced maternal age) multigravida 35+, second trimester Hypothyroidism, unspecified type documented in this encounter [facility]* Diagnosis 22 weeks gestation of [...] Hyposmolality and/or hyponatremia documented in this encounter [facility]* Diagnosis Multigravida of advanced maternal [...] (GDM), antepartum, gestational diabetes method of control unspecified([facility]) Multigravida of advanced maternal age in second trimester ([facility]) H/O loss Lightheaded Dizziness and [...] (HHS-HCC) state, incidental 25 weeks gestation of ([facility]) Gestational diabetes mellitus (GDM), antepartum, gestational diabetes method of control unspecified([facility]) Anticoagulant long-term use Encounter for long-term (current) use of anticoagulants Antiphospholipid antibody positive Other and unspecified nonspecific immunological findings Antiphospholipid antibody syndrome ([facility]) Primary hypercoagulable state documented in this encounter [facility] HealthcareEvaluation note* Diagnosis 27 weeks gestation of - Primary Multigravida of advanced maternal age in third trimester Gestational diabetes mellitus (GDM) in second trimester controlled on oral hypoglycemic drug Antiphospholipid syndrome complicating , antepartum Antiphospholipid syndrome Primary hypercoagulable state [facility] Diagnosis Third trimester (HHS-HCC) state, incidental 28 weeks gestation of ([facility]) Anemia complicating childbirth ([facility]) Anticoagulant long-term use Encounter for long-term (current) use of anticoagulants Antiphospholipid antibody positive Other and unspecified nonspecific immunological findings Blood pressure elevated without history of HTN Coagulation defect, unspecified ([facility]) documented in this encounter [facility] [...] Narrative No data available for this section [facility] Discharge instructions No data available for this section [facility]ructionsNot on filedocumented in this encounter [facility] [...] be sent through Care Everywhere. * Preeclampsia (French) documented in [facility] SystemInstructionsNot on file documented in this encounterProMedica Health SystemInstructionsNot on file documented in this encounterProMedica Health SystemInstructionsNot on file documented in this encounterProMedica Health SystemInstructionsNot on file documented in this encounterProMedica Health SystemInstructions* Attachments The following attachments cannot be sent through Care Everywhere. * Preeclampsia (French) documented in this encounterPro[facility] SystemInstructionsNot on file documented in this encounterProMedica Health SystemInstructionsNot on file documented in this encounterProMedica Health SystemInstructionsNot on file documented in this encounterProMedica Health SystemProgress note No data available for this section [facility] GeneralReason for referral (narrative) , pt reported hx of nasal polyps and deviated septum but never had surgery done Referred by: Shirlene YEBOAH, Lourdes Baltazar [facility] Reason for visit Narrative* Consultation (Urgent) - Pending ReviewSpecialtyDiagnoses / ProceduresReferred By ContactReferred To ContactRheumatology Diagnoses 22 weeks gestation of Antiphospholipid syndrome complicating , antepartum Mukul Noyola MD [address] [facility], [address] [place] [id number] Phone: tel: fax: Sam Callahan MD MPH [address] [address] Phone: tel: fax: Referral IDStatusReasonStart DateExpiration DateVisits RequestedVisits [id number] Review Specialty Services Required [facility] Summary Purpose Family History No Family [...] a 30 minute post dose observation. Rate/Dose Sotcyo8504/05/2022 2:44 PM AQX858.67 mL/lfPkvvrjmtz56/07/2022 2:25 PM IGR001 mL/hrNew Bag/Syringe/Lgakhn2704/05/2022 1:52 PM WWT517 mg166.67 mL/hr Medication OrderMAR ActionAction DateDoseRateSite iron sucrose 300 mg in NaCl 0.9% 250 mL (VENOFER) 300 mg, INTRAVENOUS, at 166.67 mL/hr, Administer over 90 Minutes, ONCE, 1 dose, On Christie 04/20/22 at 1400, Please conduct a 30 minute post dose observation. New Bag/Syringe/Eliatq1804/20/2022 2:01 PM ABZ187 mg166.67 mL/hr Additional Source Comments INFORMATION SOURCE (unrecogn ized section and content) DATE CREATED AUTHOR 10/22/2017 [facility] DATE CREATED AUTHOR AUTHOR'S ORGANIZ ATION 11/14/2017 [facility] DATE CREATED AUTHOR AUTHOR'S ORGANIZ ATION 06/18/2018 [facility] DATE CREATED AUTHOR AUTHOR'S ORGANIZ ATION 12/30/2021 [facility] DATE CREATED AUTHOR AUTHOR'S ORGANIZ ATION 06/09/2022 [facility] DATE CREATED AUTHOR AUTHOR'S ORGANIZ ATION 09/29/2023 [facility] DATE CREATED AUTHOR AUTHOR'S ORGANIZ ATION 12/03/2023 [facility] DATE CREATED AUTHOR AUTHOR'S ORGANIZ ATION 12/09/2023 [facility] DATE CREATED AUTHOR AUTHOR'S ORGANIZ ATION 12/10/2023 [facility] DATE CREATED AUTHOR AUTHOR'S ORGANIZ ATION 01/27/2024 [facility] DATE CREATED AUTHOR AUTHOR'S ORGANIZ ATION 02/24/2024 [facility] DATE CREATED AUTHOR AUTHOR'S ORGANIZ ATION 02/26/2024 [facility] DATE CREATED AUTHOR AUTHOR'S ORGANIZ ATION 02/28/2024 [facility] DATE CREATED AUTHOR AUTHOR'S ORGANIZ ATION 03/02/2024 [facility] DATE CREATED AUTHOR AUTHOR'S ORGANIZ ATION 03/03/2024 [facility] DATE CREATED AUTHOR AUTHOR'S ORGANIZ ATION 05/15/2024 [facility] DATE CREATED AUTHOR AUTHOR'S ORGANIZ ATION 05/17/2024 [facility] DATE CREATED AUTHOR AUTHOR'S ORGANIZ ATION 05/18/2024 [facility] DATE CREATED AUTHOR AUTHOR'S ORGANIZ ATION 05/19/2024 [facility] DATE CREATED AUTHOR AUTHOR'S ORGANIZ ATION 06/11/2024 [facility] DATE CREATED AUTHOR AUTHOR'S ORGANIZ ATION 06/17/2024 [facility] DATE CREATED AUTHOR AUTHOR'S ORGANIZ ATION 07/09/2024 [facility] DATE CREATED AUTHOR AUTHOR'S ORGANIZ ATION 07/12/2024 [facility] DATE CREATED AUTHOR AUTHOR'S ORGANIZ ATION 07/15/2024 [facility] DATE CREATED AUTHOR AUTHOR'S ORGANIZ ATION 08/24/2024 [facility] DATE CREATED AUTHOR AUTHOR'S ORGANIZ ATION 08/26/2024 [facility] DATE CREATED AUTHOR AUTHOR'S ORGANIZ ATION 09/01/2024 [facility] DATE CREATED AUTHOR AUTHOR'S ORGANIZ ATION 09/08/2024 [facility] DATE CREATED AUTHOR AUTHOR'S ORGANIZ ATION 09/11/2024 [facility] DATE CREATED AUTHOR AUTHOR'S ORGANIZ ATION 12/09/2024 [facility] DATE CREATED AUTHOR AUTHOR'S ORGANIZ ATION 01/18/2025 [facility] DATE CREATED AUTHOR AUTHOR'S ORGANIZ ATION 02/07/2025 [facility] DATE CREATED AUTHOR AUTHOR'S ORGANIZ ATION 02/13/2025 [facility] DATE CREATED AUTHOR AUTHOR'S ORGANIZ ATION 03/03/2025 [facility] DATE CREATED AUTHOR AUTHOR'S ORGANIZ ATION 03/11/2025 [facility] DATE CREATED AUTHOR AUTHOR'S ORGANOSEAS ATION 03/12/2025 [facility] Source Comments (unrecognize d section and content) In the event this informatio n is protected by the Federal Confidentiality of Alcohol and Drug Abuse Patient Records regulations: The Federal rules restrict any use of the information to criminally investigate or prosecute any alcohol or drug abuse patient.[facility] the event this information is protected by the Federal Confidentiality of Alcohol and Drug Abuse Patient Records regulations: The Federal rules restrict any use of the information to criminally investigate or prosecute any alcohol or drug abuse patient.[facility] CenterIn the event this information is protected by the Federal Confidentiality of Alcohol and Drug Abuse Patient Records regulations: The Federal rules restrict any use of the information to criminally investigate or prosecute any alcohol or drug abuse patient.[facility] CenterIn the event this information is protected by the Federal Confidentiality of Alcohol and Drug Abuse Patient Records regulations: The Federal rules restrict any use of the information to criminally investigate or prosecute any alcohol or drug abuse patient.[facility] CenterIn the event this information is protected by the Federal Confidentiality of Alcohol and Drug Abuse Patient Records regulations: The Federal rules restrict any use of the information to criminally investigate or prosecute any alcohol or drug abuse patient.[facility] CenterIn the event this information is protected by the Federal Confidentiality of Alcohol and Drug Abuse Patient Records regulations: The Federal rules restrict any use of the information to criminally investigate or prosecute any alcohol or drug abuse patient.[facility] CenterIn the event this information is protected by the Federal Confidentiality of Alcohol and Drug Abuse Patient Records regulations: The Federal rules restrict any use of the information to criminally investigate or prosecute any alcohol or drug abuse patient.[facility] CenterIn the event this information is protected by the Federal Confidentiality of Alcohol and Drug Abuse Patient Records regulations: The Federal rules restrict any use of the information to criminally investigate or prosecute any alcohol or drug abuse patient.[facility] CenterIn the event this information is protected by the Federal Confidentiality of Alcohol and Drug Abuse Patient Records regulations: The Federal rules restrict any use of the information to criminally investigate or prosecute any alcohol or drug abuse patient.[facility] CenterIn the event this information is protected by the Federal Confidentiality of Alcohol and Drug Abuse Patient Records regulations: The Federal rules restrict any use of the information to criminally investigate or prosecute any alcohol or drug abuse patient.[facility] CenterIn the event this information is protected by the Federal Confidentiality of Alcohol and Drug Abuse Patient Records regulations: The Federal rules restrict any use of the information to criminally investigate or prosecute any alcohol or drug abuse patient.[facility] CenterIn the event this information is protected by the Federal Confidentiality of Alcohol and Drug Abuse Patient Records regulations: The Federal rules restrict any use of the information to criminally investigate or prosecute any alcohol or drug abuse patient.[facility] CenterIn the event this information is protected by the Federal Confidentiality of Alcohol and Drug Abuse Patient Records regulations: The Federal rules restrict any use of the information to criminally investigate or prosecute any alcohol or drug abuse patient.[facility] CenterIn the event this information is protected by the Federal Confidentiality of Alcohol and Drug Abuse Patient Records regulations: The Federal rules restrict any use of the information to criminally investigate or prosecute any alcohol or drug abuse patient.[facility] CenterIn the event this information is protected by the Federal Confidentiality of Alcohol and Drug Abuse Patient Records regulations: The Federal rules restrict any use of the information to criminally investigate or prosecute any alcohol or drug abuse patient.[facility] CenterIn the event this information is protected by the Federal Confidentiality of Alcohol and Drug Abuse Patient Records regulations: The Federal rules restrict any use of the information to criminally investigate or prosecute any alcohol or drug abuse patient.[facility] CenterIn the event this information is protected by the Federal Confidentiality of Alcohol and Drug Abuse Patient Records regulations: The Federal rules restrict any use of the information to criminally investigate or prosecute any alcohol or drug abuse patient.[facility] CenterIn the event this information is protected by the Federal Confidentiality of Alcohol and Drug Abuse Patient Records regulations: The Federal rules restrict any use of the information to criminally investigate or prosecute any alcohol or drug abuse patient.[facility] CenterIn the event this information is protected by the Federal Confidentiality of Alcohol and Drug Abuse Patient Records regulations: The Federal rules restrict any use of the information to criminally investigate or prosecute any alcohol or drug abuse patient.[facility] CenterIn the event this information is protected by the Federal Confidentiality of Alcohol and Drug Abuse Patient Records regulations: The Federal rules restrict any use of the information to criminally investigate or prosecute any alcohol or drug abuse patient.[facility] CenterIn the event this information is protected by the Federal Confidentiality of Alcohol and Drug Abuse Patient Records regulations: The Federal rules restrict any use of the information to criminally investigate or prosecute any alcohol or drug abuse patient.[facility] CenterIn the event this information is protected by the Federal Confidentiality of Alcohol and Drug Abuse Patient Records regulations: The Federal rules restrict any use of the information to criminally investigate or prosecute any alcohol or drug abuse patient.[facility] CenterIn the event this information is protected by the Federal Confidentiality of Alcohol and Drug Abuse Patient Records regulations: The Federal rules restrict any use of the information to criminally investigate or prosecute any alcohol or drug abuse patient.[facility] CenterIn the event this information is protected by the Federal Confidentiality of Alcohol and Drug Abuse Patient Records regulations: The Federal rules restrict any use of the information to criminally investigate or prosecute any alcohol or drug abuse patient.[facility] CenterIn the event this information is protected by the Federal Confidentiality of Alcohol and Drug Abuse Patient Records regulations: The Federal rules restrict any use of the information to criminally investigate or prosecute any alcohol or drug abuse patient.[facility] CenterIn the event this information is protected by the Federal Confidentiality of Alcohol and Drug Abuse Patient Records regulations: The Federal rules restrict any use of the information to criminally investigate or prosecute any alcohol or drug abuse patient.[facility] CenterIn the event this information is protected by the Federal Confidentiality of Alcohol and Drug Abuse Patient Records regulations: The Federal rules restrict any use of the information to criminally investigate or prosecute any alcohol or drug abuse patient.[facility] CenterIn the event this information is protected by the Federal Confidentiality of Alcohol and Drug Abuse Patient Records regulations: The Federal rules restrict any use of the information to criminally investigate or prosecute any alcohol or drug abuse patient.[facility] CenterIn the event this information is protected by the Federal Confidentiality of Alcohol and Drug Abuse Patient Records regulations: The Federal rules restrict any use of the information to criminally investigate or prosecute any alcohol or drug abuse patient.[facility] CenterIn the event this information is protected by the Federal Confidentiality of Alcohol and Drug Abuse Patient Records regulations: The Federal rules restrict any use of the information to criminally investigate or prosecute any alcohol or drug abuse patient.[facility] CenterIn the event this information is protected by the Federal Confidentiality of Alcohol and Drug Abuse Patient Records regulations: The Federal rules restrict any use of the information to criminally investigate or prosecute any alcohol or drug abuse patient.[facility] CenterIn the event this information is protected by the Federal Confidentiality of Alcohol and Drug Abuse Patient Records regulations: The Federal rules restrict any use of the information to criminally investigate or prosecute any alcohol or drug abuse patient.[facility] CenterIn the event this information is protected by the Federal Confidentiality of Alcohol and Drug Abuse Patient Records regulations: The Federal rules restrict any use of the information to criminally investigate or prosecute any alcohol or drug abuse patient.[facility] CenterIn the event this information is protected by the Federal Confidentiality of Alcohol and Drug Abuse Patient Records regulations: The Federal rules restrict any use of the information to criminally investigate or prosecute any alcohol or drug abuse patient.[facility] CenterIn the event this information is protected by the Federal Confidentiality of Alcohol and Drug Abuse Patient Records regulations: The Federal rules restrict any use of the information to criminally investigate or prosecute any alcohol or drug abuse patient.[facility] CenterIn the event this information is protected by the Federal Confidentiality of Alcohol and Drug Abuse Patient Records regulations: The Federal rules restrict any use of the information to criminally investigate or prosecute any alcohol or drug abuse patient.[facility] CenterIn the event this information is protected by the Federal Confidentiality of Alcohol and Drug Abuse Patient Records regulations: The Federal rules restrict any use of the information to criminally investigate or prosecute any alcohol or drug abuse patient.[facility] CenterIn the event this information is protected by the Federal Confidentiality of Alcohol and Drug Abuse Patient Records regulations: The Federal rules restrict any use of the information to criminally investigate or prosecute any alcohol or drug abuse patient.[facility] CenterIn the event this information is protected by the Federal Confidentiality of Alcohol and Drug Abuse Patient Records regulations: The Federal rules restrict any use of the information to criminally investigate or prosecute any alcohol or drug abuse patient.[facility] CenterIn the event this information is protected by the Federal Confidentiality of Alcohol and Drug Abuse Patient Records regulations: The Federal rules restrict any use of the information to criminally investigate or prosecute any alcohol or drug abuse patient.[facility] CenterIn the event this information is protected by the Federal Confidentiality of Alcohol and Drug Abuse Patient Records regulations: The Federal rules restrict any use of the information to criminally investigate or prosecute any alcohol or drug abuse patient.[facility] CenterIn the event this information is protected by the Federal Confidentiality of Alcohol and Drug Abuse Patient Records regulations: The Federal rules restrict any use of the information to criminally investigate or prosecute any alcohol or drug abuse patient.[facility] CenterIn the event this information is protected by the Federal Confidentiality of Alcohol and Drug Abuse Patient Records regulations: The Federal rules restrict any use of the information to criminally investigate or prosecute any alcohol or drug abuse patient.[facility] CenterIn the event this information is protected by the Federal Confidentiality of Alcohol and Drug Abuse Patient Records regulations: The Federal rules restrict any use of the information to criminally investigate or prosecute any alcohol or drug abuse patient.[facility] CenterIn the event this information is protected by the Federal Confidentiality of Alcohol and Drug Abuse Patient Records regulations: The Federal rules restrict any use of the information to criminally investigate or prosecute any alcohol or drug abuse patient.[facility] CenterIn the event this information is protected by the Federal Confidentiality of Alcohol and Drug Abuse Patient Records regulations: The Federal rules restrict any use of the information to criminally investigate or prosecute any alcohol or drug abuse patient.[facility] CenterIn the event this information is protected by the Federal Confidentiality of Alcohol and Drug Abuse Patient Records regulations: The Federal rules restrict any use of the information to criminally investigate or prosecute any alcohol or drug abuse patient.[facility] CenterIn the event this information is protected by the Federal Confidentiality of Alcohol and Drug Abuse Patient Records regulations: The Federal rules restrict any use of the information to criminally investigate or prosecute any alcohol or drug abuse patient.[facility] CenterIn the event this information is protected by the Federal Confidentiality of Alcohol and Drug Abuse Patient Records regulations: The Federal rules restrict any use of the information to criminally investigate or prosecute any alcohol or drug abuse patient.[facility] CenterIn the event this information is protected by the Federal Confidentiality of Alcohol and Drug Abuse Patient Records regulations: The Federal rules restrict any use of the information to criminally investigate or prosecute any alcohol or drug abuse patient.[facility] CenterIn the event this information is protected by the Federal Confidentiality of Alcohol and Drug Abuse Patient Records regulations: The Federal rules restrict any use of the information to criminally investigate or prosecute any alcohol or drug abuse patient.[facility] CenterIn the event this information is protected by the Federal Confidentiality of Alcohol and Drug Abuse Patient Records regulations: The Federal rules restrict any use of the information to criminally investigate or prosecute any alcohol or drug abuse patient.[facility] CenterIn the event this information is protected by the Federal Confidentiality of Alcohol and Drug Abuse Patient Records regulations: The Federal rules restrict any use of the information to criminally investigate or prosecute any alcohol or drug abuse patient.[facility] CenterIn the event this information is protected by the Federal Confidentiality of Alcohol and Drug Abuse Patient Records regulations: The Federal rules restrict any use of the information to criminally investigate or prosecute any alcohol or drug abuse patient.[facility] CenterIn the event this information is protected by the Federal Confidentiality of Alcohol and Drug Abuse Patient Records regulations: The Federal rules restrict any use of the information to criminally investigate or prosecute any alcohol or drug abuse patient.[facility] Care Teams (unrecognized sec tion and content) Team MemberRelationshipSpecialtyStart DateEnd Date Humaira Gaviria MD [address] [place] [address] PCP - GeneralInternal Medicine07/05/18 Jonny Wilcox MD [address] [place] [address] Primary Staff PhysicianCardiology07/16/18Team MemberRelationshipSpecialtyStart DateEnd Date Humaira Gaviria MD [address] [place] [address] PCP - GeneralInternal Medicine07/05/18 Jonny Wilcox MD [address] [place] [address] Primary Staff PhysicianCardiology07/16/18Team MemberRelationshipSpecialtyStart DateEnd Date Humaira Gaviria MD [address] [place] [address] PCP - GeneralInternal Medicine07/05/18 Jonny Wilcox MD [address] [place] [address] Primary Staff PhysicianCardiology07/16/18Team MemberRelationshipSpecialtyStart DateEnd Date Humaira Gaviria MD [address] [place] [place] [address] PCP - GeneralInternal Medicine07/05/18 Jonny Wilcox MD [address] [place] [address] Primary Staff PhysicianCardiology07/16/18Team MemberRelationshipSpecialtyStart DateEnd Date Humaira Gaviria MD [address] [place] [address] PCP - GeneralInternal Medicine07/05/18 Jonny Wilcox MD [address] [place] [address] Primary Staff PhysicianCardiology07/16/18 [place] [address] [place] [address] PhysicianHematology/Oncology09/14/21 Davida Restrepo RN [address] [place] [address] Specialty Care CoordinatorHematology/Oncology09/14/21Team MemberRelationship SpecialtyStart DateEnd Date Penelope [place] [address] PCP - GeneralFamily Medicine10/04/20Team MemberRelationshipSpecialtyStart DateEnd Date Humaira Gaviria MD [address] [place] [address] PCP - GeneralInternal Medicine3/8/19 Jonny Wilcox MD [address] [place] [address] Primary Staff PhysicianCardiology07/16/18 [place] [address] [place] [address] PhysicianHematology/Oncology09/14/21 Davida Restrepo, RN [address] [place] [address] Specialty Care CoordinatorHematology/Oncology09/14/21Te MemberRelationship SpecialtyStart DateEnd Date Penelope Casas, [address] [place] [address] PCP - GeneralFamily Cwqdjxpt12/3/22 Jonny Wilcox MD [address] [place] [address] Primary Staff PhysicianCardiology07/16/18 [place] [address] [place] [address] PhysicianHematology/Oncology09/14/21 Davida Restrepo, RN [address] [place] [address] Specialty Care CoordinatorHematology/Oncology09/14/21Te MemberRelationship SpecialtyStart DateEnd Date Penelope Casas DO [address] [place] [address] PCP - GeneralFamily Qtiughsz79/3/22 Jonny Wilcox MD [address] [place] [address] Primary Staff PhysicianCardiology07/16/18 [place] [address] [place] [address] PhysicianHematology/Oncology09/14/21 Davida Restrepo, RN [address] [place] [address] Specialty Care CoordinatorHematology/Oncology09/14/21Te MemberRelationship SpecialtyStart DateEnd Date Penelope Casas, DO [address] [place] [address] PCP - GeneralFamily Hjmblkxa03/3/22 Jonny Wilcox MD [address] [place] [address] Primary Staff PhysicianCardiology07/16/18 [place] [address] [place] [address] PhysicianHematology/Oncology09/14/21 Davida Restrepo, RN [address] [place] [address] Specialty Care CoordinatorHematology/Oncology09/14/21Te MemberRelationship SpecialtyStart DateEnd Date Penelope Casas, DO [address] [place] [address] PCP - Generalmily Sgjdygaa97/3/22 Jonny Wilcox MD [address] [place] [address] Primary Staff PhysicianCardiology07/16/18 [place] [address] [place] [address] PhysicianHematology/Oncology09/14/21 Davida Restrepo, RN [address] [place] [address] Specialty Care CoordinatorHematology/Oncology09/14/21Te MemberRelationship SpecialtyStart DateEnd [facility] Penelope Casas, DO [address] [place] [address] PCP - GeneralFamily Biirmbvn40/3/22 Jonny Wilcox MD [address] [place] [address] Primary Staff PhysicianCardiology07/16/18 [place] [address] [place] [address] PhysicianHematology/Oncology09/14/21 Davida Restrepo, RN [address] [place] [address] Specialty Care CoordinatorHematology/Oncology09/14/21Te MemberRelationship SpecialtyStart DateEnd [facility] Penelope Casas, DO [address] [place] [address] PCP - GeneralFamily Nadglfvx55/3/22 Jonny Wilcox MD [address] [place] [address] Primary Staff PhysicianCardiology07/16/18 [place] [address] [place] [address] PhysicianHematology/Oncology09/14/21 Davida Restrepo, RN [address] [place] [address] Specialty Care CoordinatorHematology/Oncology09/14/21Te MemberRelationship SpecialtyStart Date[facility] Penelope Casas, DO [address] [place] [address] PCP - GeneralFamily Oehlpide75/3/22 Jonny Wilcox MD [address] [place] [address] Primary Staff PhysicianCardiology07/16/18 [place] [address] [place] [address] PhysicianHematology/Oncology09/14/21 Davida Restrepo, RN [address] [place] [address] Specialty Care CoordinatorHematology/Oncology09/14/21Te MemberRelationship SpecialtyStart DateEnd Date Penelope Casas, [address] [place] [address] PCP - GeneralFamily Navjqkhr36/3/22 Jonny Wilcox MD [address] [place] [address] Primary Staff PhysicianCardiology07/16/18 [place] [address] [place] [address] PhysicianHematology/Oncology09/14/21 Davida Restrepo, MARSHA [address] [place] [address] Specialty Care CoordinatorHematology/Oncology09/14/21Te MemberRelationship SpecialtyStart DateEnd Date Penelope Casas, DO [address] [place] [address] PCP - Generalmily Zxraexjx87/3/22 Jonny Wilcox MD [address] [place] [address] Primary Staff PhysicianCardiology07/16/18 [place] [address] [place] [address] PhysicianHematology/Oncology09/14/21 Davida Restrepo RN [address] [place], [place] [address] Specialty Care CoordinatorHematology/Oncology09/14/21Team MemberRelationship SpecialtyStart DateEnd Date Penelope Casas DO [address] [place] [address] PCP - Generalmily Najkyvxh07/3/22 Jonny Wilcox MD [address] [place] [address] Primary Staff PhysicianCardiology07/16/18 [place] [address] [place] [address] PhysicianHematology/Oncology09/14/21 Davida Restrepo RN [address] [place] [address] Specialty Care CoordinatorHematology/Oncology09/14/21Te MemberRelationship SpecialtyStart DateEnd Date Penelope Casas DO [address] [place] [address] [facility] Ufrkbabm53/3/22 Jonny Wilcox MD [address] [place] [address] Primary Staff PhysicianCardiology07/16/18 [place] [address] [place] [address] PhysicianHematology/Oncology09/14/21 Davida Restrepo RN [address] [place] [address] Specialty Care CoordinatorHematology/Oncology09/14/21Team MemberRelationship Specialtyart DateEnd Penelope Casas DO [address] [place] [address] PCP - GeneralFamily Jaoxphyl66/3/22 Jonny Wilcox MD [address] [place] [address] Primary Staff PhysicianCardiology07/16/18 [place] [address] [place] [address] PhysicianHematology/Oncology09/14/21 Davida Restrepo RN [address] [place] [address] Specialty Care CoordinatorHematology/Oncology09/14/21Te MemberRelationship SpecialtyStart DateEnd Date Penelope Casas DO [address] [place] [address] PCP - Generalmily Jdpwzunf79/3/22 Jonny Wilcox MD [address] [place] [address] Primary Staff PhysicianCardiology07/16/18 [place] [address] [place] [address] PhysicianHematology/Oncology09/14/21 Davida Restrepo RN [address] [place] [address] Specialty Care CoordinatorHematology/Oncology09/14/21Team MemberRelationship SpecialtyStart DateEnd Date Penelope Casas DO [address] [facility] [address] PCP - [facility] Ismuukzt90/3/22 Jonny Wilcox MD [address] [place] [address] Primary Staff PhysicianCardiology07/16/18 [place] [address] [place] [address] PhysicianHematology/Oncology09/14/21 Davida Restrepo, RN [address] [place] [address] Specialty Care CoordinatorHematology/Oncology09/14/21Team MemberRelationship SpecialtyStart DateEnd Date Penelope Casas DO [address] [facility] [place] [address] PCP - [facility] Sbogmrcn46/3/22 Jonny Wilcox MD [address] [place] [address] Primary Staff PhysicianCardiology07/16/18 [place] [address] [place] [address] PhysicianHematology/Oncology09/14/21 Davida Restrepo RN [address] [place], [place] [address] Specialty Care CoordinatorHematology/Oncology09/14/21Team MemberRelationship SpecialtyStart DateEnd Date Penelope Cassa DO [address] [facility] [place] [address] PCP - Generalmily Vtlcbjah12/3/22 Jonny Wilcox MD [address] [place] [address] Primary Staff PhysicianCardiology07/16/18 [place] [address] [place] [address] PhysicianHematology/Oncology09/14/21 Davida Restrepo, RN [address] [place] [address] Specialty Care CoordinatorHematology/Oncology09/14/21Team MemberRelationship SpecialtyStart DateEnd Date Penelope Casas DO [address] [facility] [place] [place] [address] PCP - Generalmily Mbrqvcgj37/3/22 Jonny Wilcox MD [address] [place] [address] Primary Staff PhysicianCardiology07/16/18 [place] [address] [place] [address] PhysicianHematology/Oncology09/14/21 Davida Restrepo, RN [address] [place] [address] Specialty Care CoordinatorHematology/Oncology09/14/21Team MemberRelationship SpecialtyStart DateEnd Date Penelope Casas DO [address] [facility] [place] [address] PCP - GeneralFamily Flbhrcbo41/3/22 Jonny Wilcox MD [address] [place] [address] Primary Staff PhysicianCardiology07/16/18 [place] [address] [place] [address] PhysicianHematology/Oncology09/14/21 Davida Restrepo, MARSHA [address] [place] [address] Specialty Care CoordinatorHematology/Oncology09/14/21Team MemberRelationship SpecialtyStart DateEnd Date Penelope Casas DO [address] [facility] [place] [address] PCP - Generalmily Yvxbfgwi31/3/22 Jonny Wilcox MD [address] [place] [address] Primary Staff PhysicianCardiology07/16/18 [place] [address] [place] [address] PhysicianHematology/Oncology09/14/21 Davida Restrepo RN [address] [place] [address] Specialty Care CoordinatorHematology/Oncology09/14/21Team MemberRelationship SpecialtyStart DateEnd Date Penelope Casas DO [address] [place] [address] PCP - GeneralFamily Gpfdxusw31/3/22 Jonny Wilcox MD [address] [facility] [place] [address] Primary Staff PhysicianCardiology07/16/18 [place] [address] [place] [address] PhysicianHematology/Oncology09/14/21 Davida Restrepo RN [address] [place] [address] Specialty Care CoordinatorHematology/Oncology09/14/21Team MemberRelationship SpecialtyStart DateEnd Date Penelope Casas DO [address] [place] [address] PCP - GeneralFamily Suqrddjt45/3/22 Jonny Wilcox MD [address] [place] [address] Primary Staff PhysicianCardiology07/16/18 [place] [address] [place] [address] PhysicianHematology/Oncology09/14/21 Davida Restrepo RN [address] [place] [address] Specialty Care CoordinatorHematology/Oncology09/14/21Te MemberRelationship SpecialtyStart DateEnd Date Penelope Casas DO [address] [facility] [place] [address] PCP - GeneralFamily Qcqudsjd58/3/22 Jonny Wilcox MD [address] [place] [address] Primary Staff PhysicianCardiology07/16/18 [place] [address] [place] [address] PhysicianHematology/Oncology09/14/21 Davida Restrepo, MARSHA [address] [place] [address] Specialty Care CoordinatorHematology/Oncology09/14/21Team MemberRelationship SpecialtyStart DateEnd Date Penelope Casas DO [address] [facility] [place] [address] [facility]CP - [facility] Ktqybdnc68/3/22 Jonny Wilcox MD [address] [place] [address] Primary Staff PhysicianCardiology07/16/18 [place] [address] [place] [address] PhysicianHematology/Oncology09/14/21 Davida Restrepo RN [address] [place] [address] Specialty Care CoordinatorHematology/Oncology09/14/21Team MemberRelationship SpecialtyStart DateEnd Date Penelope Casas DO [address] [facility] [place] [address] PCP - GeneralFamily Pbcqlcjy59/3/22 Jonny Wilcox MD [address] [place] [address] Primary Staff PhysicianCardiology07/16/18 [place] [address] [place] [address] PhysicianHematology/Oncology09/14/21 Davida Restrepo, RN [address] [place] [address] Specialty Care CoordinatorHematology/Oncology09/14/21Team MemberRelationship SpecialtyStart DateEnd Date Penelope Casas MD [address] [place] [address] PCP - GeneralFamily Medicine11/07/23Team MemberRelationshipSpecialtyStart DateEnd Date Penelope Casas MD [address] [place] [address] PCP - GeneralFamily Medicine11/07/23Team MemberRelationshipSpecialtyStart DateEnd Date Peenlope Casas MD [address] [place] [address] PCP - Generalmily Medicine11/07/23Team MemberRelationshipSpecialtyStart DateEnd Date Penelope Casas MD [address] [place] [address] PCP - Generalmily Medicine11/07/23Team MemberRelationshipSpecialtyStart DateEnd Date Penelope Casas MD [address] [place] [address] PCP - Generalmily Medicine11/07/23 Team Status: Inactive Member Role Status Dates Wilton Herrmann DO Attending Provider Active Start : May 10, 2024 End: May 10, 2024Team MemberRelationshipSpecialtyStart DateEnd Date Penelope Casas DO [address] [address] PCP - GeneralFamily Dfsoeeit82/3/22 Jonny Wilcox MD [address] [place], [place] [address] Primary Staff PhysicianCardiology07/16/18 [place] [address] [place], [place] [address] PhysicianHematology/Oncology09/14/21 Davida Restrepo RN [address] [place], [place] [address] Specialty Care CoordinatorHematology/Oncology09/14/21Team MemberRelationship SpecialtyStart DateEnd Date Penelope Casas MD [address] [place] [id number] PCP - Generalmily Medicine11/07/23Team MemberRelationshipSpecialtyStart DateEnd Date Penelope Casas MD [address] [place] [address] PCP - Generalmily Medicine11/07/23Team MemberRelationshipSpecialtyStart DateEnd Date Penelope Casas MD [address] [place] [address] PCP - GeneralVa [facility]-Dsmly Medicine11/07/23Team MemberRelationshipSpecialtyStart DateEnd Date Penelope Casas MD [address] [place] [address] PCP - GeneralFamily Medicine11/07/23Team MemberRelationshipSpecialtyStart DateEnd Date Penelope Casas DO [address] [place] [address] PCP - GeneralFamily Qxjuvhhn80/3/22 Jonny Wilcox MD [address] [place] [address] Primary Staff PhysicianCardiology07/16/18 [place] [address] [place] [address] PhysicianHematology/Oncology09/14/21 Davida Restrepo, MARSHA [address] [place] [address] Specialty Care CoordinatorHematology/Oncology09/14/21Team MemberRelationship SpecialtyStart DateEnd Date Penelope Casas MD [address] [facility] [place] [address] PCP - GeneralFamily Medicine11/07/23Team MemberRelationshipSpecialtyStart DateEnd Date Penelope Casas MD [address] [facility] [place] [address] PCP - GeneralFamily Medicine11/07/23Team MemberRelationshipSpecialtyStart DateEnd Date Penelope Casas DO PCP - GeneralFamily Medicine07/07/19Team MemberRelationshipSpecialtyStart DateEnd Date Penelope Casas DO PCP - GeneralFamily Medicine07/07/19Team MemberRelationshipSpecialtyStart DateEnd Date Penelope Casas MD [address] [place] [address] PCP - GeneralFamily Medicine11/07/23Team MemberRelationshipSpecialtyStart DateEnd Date Penelope Casas DO PCP - GeneralFamily Medicine07/07/19Team MemberRelationshipSpecialtyStart DateEnd Date Penelope Casas DO PCP - GeneralFamily Medicine07/07/19Team MemberRelationshipSpecialtyStart DateEnd Date Penelope Casas DO [address] [facility] [place] [address] PCP - GeneralFamily Imznfozg38/3/22 Jonny Wilcox MD [address] [place] [address] Primary Staff PhysicianCardiology07/16/18 [place] [address] [place] [address] PhysicianHematology/Oncology09/14/21 Davida Restrepo, MARSHA [address] [place] [address] Specialty Care CoordinatorHematology/Oncology09/14/21Team MemberRelationship SpecialtyStart DateEnd Date Penelope Casas DO PCP - GeneralFamily Medicine07/07/19Team MemberRelationshipSpecialtyStart DateEnd Date Penelope Casas MD [address] [place] [address] PCP - GeneralFamily Medicine11/07/23Team MemberRelationshipSpecialtyStart DateEnd Date Penelope Casas MD [address] [place] [address] PCP - GeneralFamily Medicine11/07/23Team MemberRelationshipSpecialtyStart DateEnd Date Penelope Casas DO PCP - GeneralFamily Medicine07/07/19Team MemberRelationshipSpecialtyStart DateEnd Date Penelope Casas DO PCP - GeneralFamily Medicine07/07/19Team MemberRelationshipSpecialtyStart DateEnd Date Penelope Casas MD [address] [place] [address] PCP - GeneralFamily Medicine11/07/23Team MemberRelationshipSpecialtyStart DateEnd Date Penelope Casas MD [address] [place] [address] PCP - GeneralFamily Medicine11/07/23Team MemberRelationshipSpecialtyStart DateEnd Date Penelope Casas DO PCP - GeneralFamily Medicine07/07/19Team MemberRelationshipSpecialtyStart DateEnd Date Penelope Casas DO [address] [place] [address] PCP - GeneralFamily Ixmvdvam03/3/22 Jonny Wilcox MD [address] [place] [address] Primary Staff PhysicianCardiology07/16/18 [place] [address] [place], [place] [address] PhysicianHematology/Oncology09/14/21 Davida Restrepo, MARSHA [address] [place] [address] Specialty Care CoordinatorHematology/Oncology09/14/21Team MemberRelationship SpecialtyStart DateEnd Date Penelope Casas DO PCP - GeneralFamily Medicine07/07/19Team MemberRelationshipSpecialtyStart DateEnd Date Penelope Casas DO PCP - GeneralFamily Medicine07/07/19Team MemberRelationshipSpecialtyStart DateEnd Date Penelope Casas DO PCP - GeneralFamily Medicine07/07/19Team MemberRelationshipSpecialtyStart DateEnd Date Penelope Casas DO PCP - GeneralFamily Medicine07/07/19Team MemberRelationshipSpecialtyStart DateEnd Date Penelope Casas DO PCP - GeneralFamily Medicine07/07/19Team MemberRelationshipSpecialtyStart DateEnd Date Penelope Casas MD [address] [place] [address] PCP - GeneralFamily Medicine11/07/23Team MemberRelationshipSpecialtyStart DateEnd Date Penelope Casas DO PCP - GeneralFamily Medicine07/07/19Team MemberRelationshipSpecialtyStart DateEnd Date Penelope Casas DO PCP - GeneralFamily Medicine07/07/19Team MemberRelationshipSpecialtyStart DateEnd Date Penelope Casas DO PCP - GeneralFamily Medicine07/07/19Team MemberRelationshipSpecialtyStart DateEnd Date Penleope Casas MD [address] [place] [address] PCP - GeneralFamily Medicine11/07/23Team MemberRelationshipSpecialtyStart DateEnd Date Penelope Casas DO PCP - GeneralFamily Medicine07/07/19Team MemberRelationshipSpecialtyStart DateEnd Date Penelope Casas DO PCP - GeneralFamily Medicine07/07/19Team MemberRelationshipSpecialtyStart DateEnd Date Penelope Casas MD [address] [place] [address] PCP - GeneralFamily Medicine11/07/23Team MemberRelationshipSpecialtyStart DateEnd Date ePnelope Casas MD [address] [place] [address] PCP - Generalmily Medicine11/07/23Team MemberRelationshipSpecialtyStart DateEnd Date Penelope Casas MD [address] [place] [address] PCP - Generalmily Medicine11/07/23Team MemberRelationshipSpecialtyStart DateEnd Date Penelope Casas MD [address] [place] [address] PCP - Generalmily Medicine11/07/23Team MemberRelationshipSpecialtyStart DateEnd Date Penelope Casas MD [address] [place] [address] PCP - Generalmily Medicine11/07/23Team MemberRelationshipSpecialtyStart DateEnd Date Penelope Casas MD [address] [place] [address] PCP - Generalmily Medicine11/07/23Team MemberRelationshipSpecialtyStart DateEnd Date Penelope Casas MD [address] [place] [address] PCP - Generalmily Medicine11/07/23Team MemberRelationshipSpecialtyStart DateEnd Date Penelope Casas MD [address] [facility] [place] [address] PCP - GeneralFamily Medicine11/07/23 Reason for Visit (unrecogniz ed section and content) ReasonCommentsFuture AppointmentReasonCommentsPatient QuestionReasonComments Medication QuestionReasonOnset DateCommentsRefill Ubwzfen35/13/2022ReasonOnset DateCommentsRefill Fmbtchr49/02/2022ReasonCommentsHypercoagulable state6 month follow upReasonCommentsPrimary hypercoagulable state8 week follow upReason CommentsResultsReasonCommentsAppointmentPatient QuestionMedication Question OrdersSpecialtyDiagnoses / ProceduresReferred By ContactReferred To Contact Diagnoses Iron deficiency anemia secondary to blood loss (chronic) Iron deficiency anemia of Procedures INJECTION, FERRIC DERISOMALTOSE, 10 MG Kristofer Calix MD [address] [place] [address] [place] [address] [facility] [address] [place] [place] [address] Referral IDStatusKelseyasonHooks DateExpiration DateVisits RequestedVisits [id number] Request SpecialtyDiagnoses / ProceduresReferred By ContactReferred To Contact Diagnoses Iron deficiency anemia secondary to blood loss (chronic) Iron deficiency anemia of Procedures IRON SUCROSE INJECTION PER 1 MG Kristofer Calix MD [address] [place] [address] [place] [address] [employer] [employer] [address] [place] [place] [address] Referral IDStatusKelseyasonStart DateExpiration DateVisits RequestedVisits [id number]/20221/[id number] DateCommentsRefill Duruthc8707/03/2022ReasonCommentsAnemiaFollow upReasonCommentsOrdersReason CommentsEstablished PatientReasonCommentsAppointmentReasonCommentsLab Orders ReasonCommentsPrimary hypercoagulable state (HCC)Follow upReasonComments Appointment RescheduledSpecialtyDiagnoses / ProceduresReferred By Contact Referred To Contact Diagnoses Iron deficiency anemia of Iron deficiency anemia secondary to blood loss (chronic) Procedures IRON SUCROSE INJECTION PER 1 MG Kristofer Calix MD [address] [place] [address] [place] [address] [address] [place] [address] Referral IDStatusReasonStart DateExpiration DateVisits RequestedVisits [id number]/[id number] DateCommentsRefill Ukgnhaa2511/29/2023easonCommentsAmenorrheaReasonOnset DateCommentsRefill Request 4ReasonCommentsRoutine VisitReasonCommentsPatient UpdateReason CommentsAnemiafollowupReasonCommentsfollow up miscarriageReasonCommentsVaginal BleedingDizzinessReasonCommentsIrregular CyclesReasonOnset DateCommentsRefill Xmaozxw8107/25/2024ReasonOnset DateCommentsRefill Hmaemqz8210/20/2024ReasonOnset DateCommentsRefill Cwsqxnx4610/29/2024ReasonCommentsGestational DiabetesSpecialty Diagnoses / ProceduresReferred By ContactReferred To ContactMaternal and Medicine Diagnoses Gestational diabetes mellitus (GDM), antepartum, gestational diabetes method of control unspecified Wilton Herrmann, DO [address] [place] [address] [place] [address] Phone: tel: fax: [facility]- [facility] at [facility] [address] [place] [address] Phone: tel: fax: Referral IDStatusReasonStart DateExpiration DateVisits RequestedVisits [id number] [facility] Required [id number]diaik stateAnemia8 week follow up ReasonCommentsMFM consultReasonCommentsRoutine VisitReasonComments [...] BE BASED ON THE PRIMARY CLINICAL RECORDS. [employer] [facility]. provides no warranty or guarantee of the accuracy or completeness of information in this document.
--- OUTSIDE RECORDS SUMMARY | 2025-03-25 19:17 | XMS_ITS | Clinical Summary ---
Author Organization [facility] Address [address] [place] [address] Care Team Providers Care Chemist Biological Name Role Phone Evans Casas MD Primary Care Provider [phone] Allergies Active AllergyReactionsCriticalityNoted DateCommentsCiprofloxacinGI intolerance 04/19/2023iprofloxacin-Fluocinolone Pf05/19/2019 Other Reaction(s): Other: See Comments Dizziness, weakness sweating Lokwmvd5609/10/2017 Other Reaction(s): GI Disturbance, GI Upset Diarrhea Diarrhea Lactose Intolerance (Gi)11/15/2023 Other Reaction(s): Illness Tbxzfyhdctr43/06/2021 Other Reaction(s): Other (See Comments) VmcicTrhewXhc40/26/2018 seasonal Other Reaction(s): Other (See Comments) Medications MedicationSigDispense QuantityRefillsLast FilledStart DateEnd DateStatus Multiple Vitamin (Multi-Vitamin) tablet Take 1 tablet by mouth in the morning.Active levothyroxine (Synthroid) 25 MCG tablet Indications:Abnormal TSHTake 1 tablet (25 mcg) by mouth in the morning. Take before meals. 30 tablet 110//[id number]//6Active enoxaparin (Lovenox) 40 MG/0.4ML injection 1 (one) time each day at the same timeActive docusate sodium (Colace) 50 MG capsule Take 100 mg by mouth in the morning and 100 mg before bedtime.Active polyethylene glycol, PEG, 3350 (Glycolax) 17 GM/SCOOP powder Take 17 g by mouth DailyActive Alcohol Swabs (Alcohol Prep Pad) 70 % pads Indications:Second trimester (HHS-HCC),13 weeks gestation of ([facility]),Multigravida of advanced maternal age in second trimester ([facility]), Gestational diabetes mellitus (GDM), antepartum, gestational diabetes method of control unspecified([facility]),Elevated glucose tolerance testApply 1 Pad topically Daily Use four times daily to check FSBS. 150 each 5Active Blood Glucose Monitoring Suppl ([employer] Glucometer) w/Device kit Indications:Second trimester ([facility]),13 weeks gestation of ([facility]),Multigravida of advanced maternal age in second trimester ([facility]), Gestational diabetes mellitus (GDM), antepartum, gestational diabetes method of control unspecified([facility]),Elevated glucose tolerance test1 kit Daily Use [...] antepartum, gestational diabetes method of control unspecified([facility])Take 3 tablets (1,500 mg) by mouth in the evening. Take with meals Do not crush, chew, or split. 90 tablet 5Active Active Problems ProblemNoted DateDiagnosed DateH/O loss01/05/2025Multigravida of advanced maternal age in second trimester ([facility])01/05/2025Thyroid xqrloph1401/05/2025 Referred otalgia of right ear11/19/2023LPRD (laryngopharyngeal reflux disease) 11/19/2023cute on chronic vesicular eczema of hands and feet11/15/2023lood pressure elevated without history of HTN11/15/2023MI 37.0-37.9, adult11/15/2023 Cold /18/2024eviated ckhnwn5911/15/2023ry mouth11/15/2023Elevated blood pressure yocytfu8411/15/2023Environmental pmlxlqmdy22/18/2024H/O: utlkhqsmjthzay61/18/2024History of bjqwec8711/15/2023History of cerebrovascular vqngcyga48/18/2024 Overview (11/15/2023): reported by pt - related to antiphospholipid syndrome History of COVID-19011/15/2023History of gestational qalrjqvt38/18/2024History of kidney tkjpsi4211/15/2023Hx of iron deficiency luueal9711/15/2023Immunization not carried out because of patient tvkzefei35/18/2024Iron iwichbbihf74/18/2024 Irregular uterine dawoymia86/18/2024Morbid kjzlrbs9011/15/2023Nasal polyps 11/15/2023Non-lamzku9111/15/2023OSA (obstructive sleep apnea)11/15/2023aresthesia of bilateral legs11/15/2023re-sdahflox83/18/2024Right lower quadrant pain 4Right otitis ernbjta2311/15/2023Salivary gland ememmevt70/18/2024Snoring 11/15/2023bdominal pain4Acute bronchitis due to itpqlxeas83/13/2024 Vrwnbaf4106/12/2023ysfunction of eustachian tube06/12/20230545Nbuwhha86/13/2024 Xigtnjybflni54/13/2024Inhalation kpmsnh1206/12/2023Lactation problem ([facility]) 4Psychogenic gaejotdgyigtnjsa97/13/2024Suspected severe acute respiratory syndrome coronavirus 2 (SARS-CoV-2) cnfuadcgh48/13/2024Hypoglycemia 06/12/2023rimary hypercoagulable state ([facility])08/01/2022estational diabetes mellitus (GDM), antepartum ([facility])01/26/2022Genitourinary rjlipcra03/22/2022 Muscle pdwtswlwaskgm84/22/2022nticoagulant long-term use02/22/2020 Cerebrovascular accident (CVA) due to stenosis of middle cerebral artery 02/22/2020Anemia complicating childbirth ([facility])01/16/2020First degree perineal laceration during delivery ([facility])01/16/2020Acute posthemorrhagic bjedwp6801/16/2020Other immediate hemorrhage ([facility])01/16/2020 Personal history of urinary (tract) ltufdirelw22/18/2020Single live ([facility])01/15/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 ([facility])01/08/2020Pruritus, rxyeipwjfeg66/04/2020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)12/30/201932 weeks gestation of ([facility])11/28/2019Thrombocytopenia, obroovmnlct09/23/2020Other general symptoms and signs10/28/2019Urinary tract fiyytlerd84/18/2020 Tdafpbsbaumk19/28/2020SVT (supraventricular tachycardia)08/26/2019 Antiphospholipid antibody syndrome ([facility])07/07/2019Other bacterial infections of unspecified site06/27/2019Less than 8 weeks gestation of ([facility]) 06/05/2019Encounter for supervision of normal , unspecified, first trimester ([facility])05/29/2019Cerebral infarction, wmkedmlpyzq99/17/2020 Deficiency of other specified B group sthwyydq42/17/0959Hnmyqhrwsstf13/17/2020 Unspecified condition associated with female genital organs and menstrual cycle 05/09/2019Other specified noninflammatory disorders of uizojo0502/21/2019Frequency of lewgtygrjxy57/23/2019Unspecified ovarian cyst, right side02/06/2019 Lpeeitxkfce79/09/2019Coagulation defect, unspecified ([facility])02/05/2019 Dizziness and xwagawsgy55/09/2019Long term (current) use of 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/dkfmrenhdbfef68/09/2019Other acute postprocedural pain02/03/2019 Pelvic and perineal pain02/01/2019Syncope and bzcbussh52/04/2019Raised antibody titer09/25/2017Migraine without aura and without status migrainosus, not /16/2018Antiphospholipid antibody hzwejcdc85/14/2018Fatigue 12/29/2016Idiopathic progressive mtrqazmchn27/01/2017Pain in joint12/29/2016 Estimated Date of ZbogvhyuJpavhiiyEov29/05/2026ased on last menstrual period of 07/28/2024 Encounters DateTypeDepartmentCare LqgnNukpgwwrlfk16/26/2025 11:10 AM ESTRoutine [facility] [address] [place] [address] Mya Herrmann, DO Third trimester (HHS-HCC); 34 weeks gestation of (HHS-HCC); Anemia complicating childbirth (HHS-HCC); Anticoagulant long-term use; Antiphospholipid antibody positive; Antiphospholipid antibody syndrome ([facility]); Thyroid juagbhi8503/25/2025amboo flowsheet [facility] [address] [place] [address] Mya Herrmann, DO 5Abstract [facility] [address] [place] [phone] Mya Herrmann, DO 5Clinisync Result Encounter [facility] External Department Unsolicited Mya Herrmann, DO 5Clinisync Result Encounter [facility] External Department Unsolicited Mya Herrmann, DO 5Clinisync Result Encounter [facility] External Department Unsolicited Mya Herrmann, DO 03/10/2025 9:50 AM ESTRoutine [facility] [address] [place] [address] Mya Herrmann, DO 32 weeks gestation of (HHS-HCC); Third trimester (HHS-HCC); Anemia complicating childbirth ([facility]); Anticoagulant long-term use; Antiphospholipid antibody positive; Blood pressure elevated without history of HTN; Coagulation defect, unspecified (HHS-HCC); Antiphospholipid antibody syndrome (HHS-HCC); Thyroid disease; Multigravida of advanced maternal age in third trimester (HHS-HCC)03/10/2025 Bamboo flowsheet [facility] [address] [place] [address] Mya Herrmann, DO 5Clinisync Result Encounter [facility] External Department Unsolicited Mya Herrmann, DO 03/04/2025bstract [facility] [address] [place] [address] Mya Herrmann, DO 03/03/2025Patient Outreach [facility] [place] [address] Petra Whitmore LPN 02/27/2025linisync Result Encounter [facility] External Department Unsolicited Mya Herrmann, DO 02/23/2025 9:00 AM EDTRoutine [facility] [address] [place] [phone] Mya Herrmann, DO Third trimester ([facility]); 30 weeks gestation of ([facility])02/23/2025amboo flowsheet [facility] [address] [place] [address] Mya Herrmnan, DO 02/20/2025linisync Result Encounter [facility] External Department Unsolicited Mya Herrmann, DO 02/20/2025linisync Result Encounter [facility] External Department Unsolicited Mya Herrmann, DO 02/17/2025linisync Result Encounter [facility] External Department Unsolicited Mya Herrmann, DO 02/17/2025bstract [facility] [address] [place] [phone] Mya Herrmann, DO 02/09/2025 10:30 AM EDTRoutine [facility] [address] [place] [phone] Mya Herrmann, DO Third trimester ([facility]); 28 weeks gestation of ([facility]); Anemia complicating childbirth ([facility]); Anticoagulant long-term use; Antiphospholipid antibody positive; Blood pressure elevated without history of HTN; Coagulation defect, unspecified ([facility])02/09/[address] [facility] [address] [place] [address] Mya Herrmann DO 02/03/2025Patient Outreach [facility] [address] [place] [phone] Petra Whitmore LPN 01/21/2025Telephone [facility] [address] [place] [address] Celia Keith NP 01/19/2025 9:[address] [facility] [address] [place] [address] Mya Herrmann, Second trimester ([facility]); 25 weeks gestation of ([facility]); Gestational diabetes mellitus (GDM), antepartum, gestational diabetes method of control unspecified([facility]); Anticoagulant long-term use; Antiphospholipid antibody positive; Antiphospholipid antibody syndrome ([facility])01/19/2025[facility] [address] [place] [address] [place] [address] Mya Herrmann DO 01/15/2025Telephone [facility] [address] [place] [address] Lala Hess MA 01/06/2025Patient Outreach [facility] [address] [place] [address] Petra Whitmore LPN 01/05/2025 2:40 PM EDTRoutine [facility] [address] [place] [address] [place] [address] Mya Herrmann, Second trimester ([facility]); 23 weeks gestation of ([facility]); Thyroid disease ; Gestational diabetes mellitus (GDM), antepartum, gestational diabetes method of control unspecified([facility]); Multigravida of advanced maternal age in second trimester ([facility]); H/O loss; Lightheaded; Smaxpvtde65/08/2025amboo flowsheet [facility] [address] [place] [phone] Mya Herrmann DO 12/26/2024bstract [facility] [address] [place] [address] Mya Herrmann DO from Last 3 Months Family History Medical HistoryRelationNameCommentsCerebrovascular AccidentFatherDiabetesFather Heart problemsMaternal GrandfatherMental illnessMaternal GrandmotherCancer Paternal GrandfatherDiabetesPaternal GrandfatherCancerPaternal Grandmother DiabetesPaternal GrandmotherDiabetesSisterRelationNameStatusCommentsFather Maternal GrandfatherMaternal GrandmotherPaternal GrandfatherPaternal Grandmother Sister Social History Tobacco UseTypesPacks/DayYears UsedDateSmoking Tobacco: NeverSmokeless Tobacco: Never Tobacco Cessation:Counseling Given: Not Answered Alcohol UseStandard Drinks/WeekCommentsNever0 (1 standard drink = 0.6 oz pure alcohol)PHQ-2AnswerDate RecordedPatient Health Questionnaire-2 Popdp80205/03/2024 Estimated Date of TwdvelqkIkapotzuOwp98/05/2026ased on last menstrual period of 07/28/2024Sex and Gender InformationValueDate RecordedSex Assigned at BirthNot on fileLegal GzkBhqlov93/15/2023 11:19 PM EDTGender IdentityNot on file Sexual OrientationNot on file Last Filed Vital Signs Vital SignReadingTime TakenCommentsBlood Uyrwumfx627/7203/25/2025 11:25 AM EST Pulse--Temperature--Respiratory Rate--Oxygen Saturation--Inhaled Oxygen Concentration--Hrfyag35.9 kg (211 lb 8 oz)03/25/2025 11:25 AM ZAWIvliqo243.6 cm (5' 6 )11/19/2023 1:48 PM EDTBody Mass Index34.1407 1:48 PM EDT Plan of Treatment DateTypeDepartmentCare Team (Latest Contact Info)Fhxlojqkcpz80/10/2025 1:40 PM ESTRoutine [facility] [address] [place] [phone] Mya Herrmann, DO [address] [facility] [address] [place] [address] 04/15/2025 1:50 PM ESTRoutine [facility] [address] [place] [phone] Mya Herrmann, DO [address] [facility] [address] [place], [place] [phone] Health MaintenanceDue DateLast DoneCommentsHPV/Jdafqz0610/22/2015COVID-19 Vaccine ( season)2024Influenza Vaccine (#1)5Cervical Cancer Xyqdsmkpz14/18/2025Pap Smear2Pneumococcal Vaccine: Pediatrics (0 to 5 Years) and At-Risk Patients (6 to 64 Years)Aged OutNo longer eligible based on patient's age to complete this topic Procedures Procedure NamePriorityDate/TimeAssociated DiagnosisCommentsPOCT URINALYSIS HMIBXNJUXzhrzuy12/26/2025 11:31 AM EST Third trimester ([facility]) US OB BPP W NON-AKWIDH5703/19/2025 11:51 PM EST US OB ZXYRGC0703/19/2025 11:51 PM EST US OB BPP W NON-DHOXPP2103/13/2025 7:55 AM EST POCT URINALYSIS AAMYAYDQFbjxhfc58/11/2025 10:06 AM EST 32 weeks gestation of ([facility]) Third trimester ([facility]) US OB BPP W NON-USUGQC4903/06/2025 8:10 AM EST US OB BPP W NON-OKHLTS2402/27/2025 10:53 AM EDT POCT URINALYSIS KPJZMPIGNlvotac62/27/2025 9:38 AM EDT 30 weeks gestation of ([facility]) US OB RVSNAU5802/20/2025 8:37 AM EDT US OB BPP W NON-CSNZUI8002/20/2025 8:37 AM EDT ALL THYROID STIM YBFTSUEKzxthqj02/21/2025 1:31 PM EDT ALL CBC WITH AUTO TZHUMxjiurh43/21/2025 1:31 PM EDT POCT URINALYSIS ZWEVRDKHSpyvhia81/13/2025 10:55 AM EDT 28 weeks gestation of ([facility]) POCT URINALYSIS AGQEKFKCNutpgsu63/22/2025 9:33 AM EDT Second trimester ([facility]) POCT URINALYSIS YICBFOSBQkpggbn57/08/2025 3:25 PM EDT Second trimester ([facility]) PAP LYLOXLfzaoez56/18/2022 12:00 AM EDTfrom Last 3 Months or Most Recently Relevant to Health Maintenance Results * POCT urinalysis dipstick manually resulted (03/25/2025 11:31 AM EST) Only the most recent of6 [...] Location / LateralityCollection Method / VolumeCollection TimeReceived EokhWnmlp44/26/2025 11:31 AM EST Narrative Authorizing ProviderResult TypeResult StatusCorey Montez DOPOINT OF CARE TEST ENTER/EDIT ORDERABLESFinal Result * US OB GROWTH (03/19/2025 11:51 PM EST) Only the most recent of2 resultswithin the time period is included. Anatomical RegionLateralityModalityOtherSpecimen (Source)Anatomical Location / LateralityCollection Method / VolumeCollection TimeReceived Time03/19/2025 11:51 PM EST Narrative 03/19/2025 11:53 PM EST [facility] ?[address] ? [place] [address] ? Ultrasound Report ? Signed ? Patient: MADHU RENDON ?MR#: [id number] ?? : 1985 ?Acct:[id number] ?? Age/Sex: 39 / F ?ADM Date: 03/19/25 ?? Loc: US ? Attending Dr: Mya Herrmann D.O. ? Ordering Physician: Mya Herrmann D.O. ?? Date of Service: 03/19/25 ?? Procedure(s): US OB growth ?? Accession Number(s): [id number] ? cc: Mya Herrmann D.O.; Physician,Non-Staff M.D. ? [facility] ? [address] ? [place] [address] ? Patient Name: ?? MADHU RENDON ? MRN: [facility]:[id number] ? date: 1985 ?Sex: F ?? Assigned Patient Location: ?? Current Patient Location: ? Accession/Order Number: [id number] ?? Exam Date: 03/19/2025 ??19:20 ?Report Date: [...] M.D. ??03/19/2025 11:51 PM ? Dictation Location: [place] [address] ? Electronically authenticated by: [id number] ??Y ?? Date: 03/19/2025 ??23:51 ? Dictated By: ?Robert Beltrán D.O. ? Signed By: ?03/19/25 2353 ? DD/ 2351 ? TD/TT: ? Ux Developer Designer: Procedure Note Radiology, Radiologist, - 03/19/2025 [place] [address] Ultrasound Report Signed Patient: MADHU RENDON [facility]#: [id number] : 1985Acct:[id number] Age/Sex: 39 / FADM Date: 03/19/25 Loc: US Attending Dr: Mya Herrmann D.O. Ordering Physician: Mya Herrmann D.O. Date of Service: 03/19/25 Procedure(s): US OB growth Accession Number(s): [id number] cc: Mya Herrmann D.O.; Physician,Non-Staff [place] [id number] Patient Name: MADHU RENDON MRN: [facility]:[id number] date: 1985 Sex: F Assigned Patient Location: US Current Patient Location: Accession/Order Number: [id number] Exam Date: 03/19/2025 19:20 Report Date: 03/19/2025 [...] Beltrán M.D. 03/19/2025 11:51 PM Dictation Location: [place] [address] Electronically authenticated by: [id number] Y Date: 3:51 Dictated By: Robert Beltrán D.O. Signed By:03/19/252352 DD/ 50 TD/TT: Ux Developer Designer: Authorizing ProviderResult TypeResult StatusCorey Montez DOCLINISYNC IMAGINGFinal Result * US OB BPP W NON-STRESS (03/19/2025 11:51 PM EST) Only the most recent of5 resultswithin the time period is included. Anatomical RegionLateralityModalityOtherSpecimen (Source)Anatomical Location / LateralityCollection Method / VolumeCollection TimeReceived Time03/19/2025 11:51 PM EST Narrative 03/19/2025 11:53 PM EST [facility] ?[address] ? [place] [address] ? Ultrasound Report ? Signed ? Patient: JUSTICE,MADHU S ?MR#: [id number] ?? : 1985 ?Acct:[id number] ?? Age/Sex: 39 / F ?ADM Date: 11/20/25 ?? Loc: US ? Attending Dr: Mya Herrmann D.O. ? Ordering Physician: Mya Herrmann D.O. ?? Date of Service: 03/19/25 ?? Procedure(s): US OB BPP w non-stress ?? Accession Number(s): [id number] ? cc: Mya Herrmann D.O.; Physician,Non-Staff M.D. ? [facility] ? [address] ? [place] [address] ? Patient Name: ?? MADHU RENDON ? MRN: [facility]:[id number] ? date: 1985 ?Sex: F ?? Assigned Patient Location: [facility] ?? Current Patient Location: ? Accession/Order Number: [id number] ?? Exam Date: 03/19/2025 ??19:20 ?Report Date: [...] M.D. ??03/19/2025 11:51 PM ? Dictation Location: [facility]- ? Electronically authenticated by: [id number] ??Y ?? Date: 03/19/2025 ??23:51 ? Dictated By: ?Robert Beltrán D.O. ? Signed By: ?03/19/253 ? DD/ 50 ? TD/TT: ? Ux Developer Designer: Procedure Note Radiology, Radiologist, - 03/19/2025 [place] [address] Ultrasound Report Signed Patient: MADHU RENDON SMR#: [id number] : 1985Acct:[id number] Age/Sex: 39 / FADM Date: 03/19/25 Loc: US Attending Dr: Mya Herrmann D.O. Ordering Physician: Mya Herrmnan D.O. Date of Service: 03/19/25 Procedure(s): US OB BPP w non-stress Accession Number(s): [id number] cc: Mya Herrmann D.O.; Physician,Non-Staff M.D. The [place] [id number] Patient Name: MADHU RENDON MRN: [id number] date: 1985 Sex: F Assigned Patient Location: [facility] Current Patient Location: Accession/Order Number: [id number] Exam Date: 03/19/2025 19:20 Report Date: 03/19/2025 [...] Beltrán M.D. 03/19/2025 11:51 PM Dictation Location: [place] [address] Electronically authenticated by: [id number] Y Date: 3:51 Dictated By: Robert Beltrán D.O. Signed By:03/19/252352 DD/ 50 TD/TT: Ux Developer Designer: Authorizing ProviderResult TypeResult StatusCorey Montez DOCLINISYNC IMAGINGFinal Result * ALL THYROID STIM HORMONE (02/17/2025 1:31 PM EDT)ComponentValueRef RangeTest MethodAnalysis TimePerformed AtPathologist SignatureTHYROID STIMULATING HORMONE1.7450.358 - 3.740 uIU/mLTBHSpecimen (Source)Anatomical Location / LateralityCollection Method / VolumeCollection TimeReceived Time02/17/2025 1:31 PM EDT1 1:36 PM EDT Narrative CLINISYNC - 02/17/2025 2:40 PM EDT Authorizing ProviderResult TypeResult StatusCorey Montez DOCLINISYNCFinal Result Performing OrganizationAddressCity/State/ZIP CodePhone Number CLINISYNC TB * (ABNORMAL) ALL CBC WITH AUTO DIFF (02/17/2025 1:31 PM EDT)ComponentValueRef RangeTest MethodAnalysis TimePerformed AtPathologist SignatureTBH WBC9.64.0 - 11.0 10 3/uLTBHTBH RBC3.82(L)4.20 - 5.40 10 6/uLTBHTBH HGB12.112.0 - 16.0 g/dL TBHTBH HCT34.6(L)36.0 - 48.0 %TBHTBH MCV90.681.0 - 99.0 fLTBHTBH MCH31.726.7 - 34.0 pgTBHTBH MCHC35.029.9 - 35.2 g/dLTBHTBH RDW13.111.0 - 15.0 %TBHTBH YZE298 150 - 450 10 3/uLTBHTBH MPV9.79.5 - [...] Montez DOCLINISYNCFinal Result Performing OrganizationAddressCity/State/ZIP CodePhone Number [facility] * Pap Smear (02/14/2022 12:00 AM EDT)Specimen (Source)Anatomical Location / LateralityCollection Method / VolumeCollection TimeReceived TimeSwabCervical swab / Unknown Narrative Authorizing ProviderResult TypeResult StatusFazio Nurse [facility] ObLAB CYTOLOGY ORDERABLESFinal ResultPerforming OrganizationAddressCity/State/ZIP CodePhone Number EXTERNAL LAB from Last 3 Months or Most Recently Relevant to Health Maintenance Insurance Care Teams Team MemberRelationshipSpecialtyStart DateEnd Date Evans Casas MD [address] [facility] [place] [address] PCP - GeneralFascly Medicine11/07/23
--- OUTSIDE RECORDS SUMMARY | 2025-03-25 19:17 | XMS_ITS | Encounter Summary ---
Author Organization [facility] Address [address] [place] [address] Care Team Providers Care Applications Sales Consultant Name Role Phone Evans Casas MD Primary Care Provider [phone] Encounter Details DateTypeDepartmentCare Team (Latest Contact Info)Udkdxwkfdsk01/14/2025linisync Result Encounter [facility] External Department Unsolicited Mya Herrmann DO [address] [place], [facility]11 Social History Tobacco UseTypesPacks/DayYears UsedDateSmoking Tobacco: NeverSmokeless Tobacco: NeverAlcohol UseStandard Drinks/WeekCommentsNever0 (1 standard drink = 0.6 oz pure alcohol)PHQ-2AnswerDate RecordedPatient Health Questionnaire-2 Score0 03/03/2025Estimated Date of EwekkmksNjwmugerYrr13/05/2026Based on last menstrual period of 07/28/2024Sex and Gender InformationValueDate RecordedSex Assigned at BirthNot on fileLegal IzeEgqqes09/15/2023 11:19 PM EDTGender IdentityNot on fileSexual OrientationNot on filedocumented as of this encounter Plan of Treatment DateTypeDepartmentCare Team (Latest Contact Info)Jfgjkzldtjt55/10/2025 1:40 PM ESTRoutine [facility] [address] [place] [phone] Mya Herrmann DO [address] [place] [address] 04/15/2025 1:50 PM ESTRoutine [facility] [place] [facility] [address] [facility] [place] [phone] Mya Herrmann, DO [address] [facility] [place] [address] documented as of this encounter Procedures Procedure NamePriorityDate/TimeAssociated DiagnosisCommentsUS OB BPP W NON-IPMQTJ1503/13/2025 7:55 AM EST documented in this encounter Results * US OB BPP W NON-STRESS (03/13/2025 7:55 AM EST)Anatomical Region LateralityModalityOtherSpecimen (Source)Anatomical Location / Laterality Collection Method / VolumeCollection TimeReceived Time03/13/2025 7:55 AM EST Narrative 03/13/2025 7:57 AM EST [facility] ?[address] ? [place] [address] ? Ultrasound Report ? Signed ? Patient: SANNA RENDON ?MR#: [id number] ?? : 1985 ?Acct:[id number] ?? Age/Sex: 39 / F ?ADM Date: 03/12/25 ?? Loc: US ? Attending Dr: Mya Herrmann D.O. ? Ordering Physician: Mya Herrmann D.O. ?? Date of Service: 03/12/25 ?? Procedure(s): US OB BPP w non-stress ?? Accession Number(s): [id number] ? cc: Mya Herrmann D.O.; Physician,Non-Staff M.D. ? [facility] ? [address] ? [place] [address] ? Patient Name: ?? SANNA RENDON ? MRN: [id number] ? date: 1985 ?Sex: F ?? Assigned Patient Location: [facility] ?? Current Patient Location: ? Accession/Order Number: [id number] ?? Exam Date: 03/12/2025 ??19:12 ?Report Date: [...] Dictation Location: RADIO-PC-02 ? Electronically authenticated by: [id number] ??Y ?? Date: 03/13/2025 ??07:55 ? Dictated By: ?Pamela Pisano M.D. ? Signed By: ?14/25 0757 ? DD/ 0755 ? TD/TT: ? Book Binder: Procedure Note Radiology, Radiologist, MD - 03/13/2025 [place] [address] Ultrasound Report Signed Patient: SANNA RENDON SMR#: [id number] : 1985Acct:[id number] Age/Sex: 39 / FADM Date: 03/12/25 Loc: US Attending Dr: Mya Herrmann D.O. Ordering Physician: Mya Herrmann D.O. Date of Service: 03/12/25 Procedure(s): US OB BPP w non-stress Accession Number(s): [id number] cc: Mya Herrmann D.O.; Physician,Non-Staff M.D. The [address] [address] Patient Name: SANNA RENDON MRN: [id number] date: 1985 Sex: F Assigned Patient Location: [facility] Current Patient Location: Accession/Order Number: [id number] Exam Date: 03/12/2025 19:12 Report Date: 03/13/2025 [...] Pisano M.D. 03/13/2025 7:55 AM Dictation Location: [place] [address] Electronically authenticated by: [id number] Y Date: 507:55 Dictated By: Pamela Pisano M.D. Signed By:03/13/25 0757 DD/ 0755 TD/TT: Book Binder: Authorizing ProviderResult TypeResult StatusCorey Montez DOCLINISYNC IMAGINGFinal Result documented in this encounter Visit Diagnoses Not on filedocumented in this encounter Care Teams Team MemberRelationshipSpecialtyStart DateEnd Date Evans Casas MD [address] [facility] [place] [address] PCP - GeneralFamily Medicine11/07/23documented as of this encounter
--- OUTSIDE RECORDS SUMMARY | 2025-03-25 19:17 | XMS_ITS | Encounter Summary ---
Author Organization [facility] tem Address [facility] [place] [address] Care Team Providers Care Home Connect Lpn Name Role Phone Evans Casas DO Primary Care Provider [phone] Encounter Details DateTypeDepartmentCare Team (Latest Contact Info)Fkkuhdbmruf46/18/2025Travel Social History Tobacco UseTypesPacks/DayYears UsedDateSmoking Tobacco: NeverSmokeless Tobacco: NeverAlcohol UseStandard Drinks/WeekCommentsNot Currently0 (1 standard drink = 0.6 oz pure alcohol)ChildcareAnswerDate EbimcufvRbwehahfzXoybgiw64/31/2019 EmploymentAnswerDate PjsogrvyWdcscaffbzAhckpsd67/31/2019Hunger ScreeningAnswer Date RecordedWithin the past 12 months we worried whether our food would run out before we got money to buy more.Never True01/01/2025Within the past 12 months the food we bought just didn't last and we didn't have money to get more.Never True01/01/2025Purpose - LifeAnswerDate RecordedPurpose and direction in life Puwccqb19/11/2021Estimated Date of OxlhezksDopupecbFoj37/05/2026Based on last menstrual period of 07/28/2024Sex and Gender InformationValueDate Recorded Sex Assigned at BirthNot on fileLegal IadSgerfz44/31/2019 12:25 PM EDTGender IdentityNot on fileSexual OrientationNot on filedocumented as of this encounter Plan of Treatment DateTypeDepartmentCare Team (Latest Contact Info)Ewpmkpwdtor49/09/2025 1:30 PM ESTTelemedicine Maternal- Medicine at [facility] [address] [place] [address] Davida [place], PAPilyC [address] [address] documented as of this encounter Visit Diagnoses Not on filedocumented in this encounter Care Teams Team MemberRelationshipSpecialtyStart DateEnd Date Evans Casas DO PCP - GeneralFamily Medicine07/07/19documented as of this encounter
--- OUTSIDE RECORDS SUMMARY | 2025-03-25 19:17 | XMS_ITS | Clinical Summary ---
Author Organization [facility] Address [address] [place] [address] Care Team Providers Care Deportation Officer Name Role Phone Jonny Wilcox MD Unavailable [phone] Cosmo Elliott MD Unavailable [phone] Davida Restrepo RN Unavailable [phone] Evans Casas DO Primary Care Provider [phone] Allergies Active AllergyReactionsCriticalityNoted DateCommentsCiprofloxacinOther: See Comments,Ilqzvyz3305/19/2019 Dizziness, weakness sweating Ciprofloxacin-FluocinoloneOther: See Akecnnlr04/20/2020 Dizziness, weakness sweating LactalbuminUnknown,GI IrngrKbn18/26/2018 Crampy and gassy LactoseGI Upset09/10/2017 Diarrhea MilkOther: See MzldbevkMrv08/26/2018 Crampy and gassy Diarrhea Other reaction(s): GI Upset Crampy and gassy Milk Containing Products (Dairy)Other: See KzxkungaWkk86/26/2018 Crampy and gassy Diarrhea Other reaction(s): GI Upset Crampy and gassy Seasonal AllergiesGI Upset,Other: See Ipdwhonn43/06/2021 Medications MedicationSigDispense QuantityRefillsLast FilledStart DateEnd DateStatus multivitamin [...] MEAL(S)Active Active Problems ProblemNoted DateDiagnosed DateAntiphospholipid antibody jumobnuc54/29/2025 Vitamin D bkazcaletp03/29/2025Primary hypercoagulable state08/01/2022VA, old, speech/language ozmmzca3308/01/2022Iron deficiency anemia secondary to blood loss (chronic)03/27/2022Iron deficiency anemia of dpqvzfibj90/28/2022nti-cardiolipin antibody ekqibkue90/29/2018Migraine with aura and without status migrainosus, not tzqnjdyvzdf28/16/2018Antiphospholipid antibody dcqrywnz08/14/2018Fatigue 12/29/2016Pain in joint12/29/2016Estimated Date of DeliveryCommentsYes 07/28/2024 Encounters DateTypeDepartmentCare DwdzAkpocrckgmf73/03/2025 11:30 AM ESTVisit (SP) Office Hematology/Oncology [address] [place] [address] [place] [address] Katherine aCban APRN.BARN MANAGER Antiphospholipid antibody positive (Primary Dx); Iron deficiency anemia secondary to blood loss (chronic); Vitamin D deficiency; Primary hypercoagulable state (HCC); CVA, old, speech/language deficit; Gestational diabetes mellitus (GDM) in third trimester, gestational diabetes method of control unspecified (HCC); History of hemorrhage; Anemia complicating , third trimester (HCC)03/02/20250604Prkuki95/02/2025 Telephone Hematology/Oncology [address] [place] [address] [place] [address] Rachael Johnson RN Beynssd5001/26/2025Telephone Hematology/Oncology [address] [place] [address] [place] [address] Rachael Johnson RN 12/23/2024 11:30 AM EDTVisit (SP) Office Hematology/Oncology [address] [place] [address] [place] [address] 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 APRN.BARN MANAGER Antiphospholipid antibody positive (Primary Dx); Iron deficiency [...] drink = 0.6 oz pure alcohol)PHQ-2AnswerDate RecordedPHQ-2 qnqxz6954Area Deprivation Index AnswerDate RecordedNational Score (1-100), lower number is lower risk58 09/28/2022State Score (1-10), lower number is lower yvza3713Data from: https://www.neighborhoodatlas.medicine.[facility].edu/. Last address used for ubnsxrohq[address]Estimated Date of DeliveryCommentsYes 07/28/2024Sex and Gender InformationValueDate RecordedSex Assigned at BirthNot on fileLegal SmnNkyhea15/29/2018 10:06 AM ESTGender IdentityNot on fileSexual OrientationNot on fileOccupationIndustryJob Start DateJob End Datestay at home momNot on fileNot on fileNot on file Last Filed Vital Signs Vital SignReadingTime TakenCommentsBlood Uambeugh402/7911 11:56 AM EST Rnlws505203/02/2025 11:56 AM BKRIgbznrtqcvm34.2 ??C (97.2 ??F)03/02/2025 11:56 AM ESTRespiratory Yqlx990605/02/2024 11:56 AM ESTOxygen Knxbukfrsv02%03/02/2025 11:56 AM ESTInhaled Oxygen Concentration--Kkqezy60.2 kg (214 lb 4.6 oz)03/02/2025 11:56 AM JODFzhzwc018.7 cm (5' 6.02 )12/23/2024 11:34 AM EDTBody Mass Index34.56 12/23/2024 11:34 AM EDT Plan of Treatment DateTypeDepartmentCare Team (Latest Contact Info)Fntegulwpas00/05/2025 9:15 AM ESTOffice Visit [facility] [address] [place] [address] [place] [address] Return in 4 weeks lab and possible iron - needs this date/time04/03/2025 9:40 AM ESTVisit (SP) Office Hematology/Oncology [address] [place] [address] [place] [address] Salvador Dos Santos MD [address] [place] [address] [place] [address] Return in 4 weeks lab and possible iron - needs this date/time04/03/2025 10:00 AM [facility] Hematology/Oncology [address] [place] [address] [place] [address] Return in 4 weeks lab and possible iron - needs this date/timeHealth Maintenance Due DateLast DoneCommentsAnxiety Kgwhdumms08/24/2004Depression Screening 10/22/2003HIV Eiucmhjzx04/24/2004Hepatitis C Ybxzfcbdk10/24/2004Hepatitis B Vaccine (1 of 3 - 19+ 3-dose series)2004HPV Vaccine (1 - 3-dose SCDM series)2012Cervical Cancer Wnipavigh20DTaP,Tdap,Td Vaccine (2 - Td or Tdap)5007/03/2014Covid-19 Vaccine (1 - season)2024Influenza Vaccine (#1) (Patient/Parent/Guardian Counseled and Declines)RSV Vaccine (1 - 1-dose 75+ series)2060 Procedures Procedure NamePriorityDate/TimeAssociated DiagnosisCommentsCOMPREHENSIVE METABOLIC QCRBFYcwabaa47/03/2025 11:40 AM EST 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) Vitamin D deficiency Primary hypercoagulable state (HCC) CBC + WIJNPafpsxb28/03/2025 11:40 AM EST 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) Vitamin D deficiency Primary hypercoagulable state (HCC) VITAMIN D 25 ESQKGDEIqqzgik51/03/2025 11:40 AM EST 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) Vitamin D deficiency VITAMIN B12 GFSBRNlzdyat72/26/2025 11:28 AM EDT Primary hypercoagulable state (HCC) CVA, old, speech/language deficit Cerebral hyponatremia Personal history of TIA (transient ischemic attack) IRON + MYPATmvkfli71/26/2025 11:28 AM EDT Primary hypercoagulable state (HCC) CVA, old, speech/language deficit Cerebral hyponatremia Personal history of TIA (transient ischemic attack) FERRITIN DGZMbazshm49/26/2025 11:28 AM EDT Primary hypercoagulable state (HCC) CVA, old, speech/language deficit Cerebral hyponatremia Personal history of TIA (transient ischemic attack) COMPREHENSIVE METABOLIC UHXLHLlloewf76/26/2025 11:28 AM EDT Primary hypercoagulable state (HCC) CVA, old, speech/language deficit Cerebral hyponatremia Personal history of TIA (transient ischemic attack) CBC + FJUKHqpmdwj87/26/2025 11:28 AM EDT Primary hypercoagulable state (HCC) CVA, old, speech/language deficit Cerebral hyponatremia Personal history of TIA (transient ischemic attack) from Last 3 Months Results * VITAMIN D 25 HYDROXY (03/02/2025 11:40 AM EST)ComponentValueRef RangeTest MethodAnalysis TimePerformed AtPathologist SignatureVitamin D 25 Eerduhh18.6 31.0 - 80.0 ng/mL03/02/2025 9:47 PM ESTCHERRINGTON HOSPITAL LABSpecimen (Source)Anatomical Location / LateralityCollection Method / VolumeCollection TimeReceived TimeBloodBLOOD SPECIMEN / UnknownVenipuncture / Udrtggu7203/02/2025 11:40 AM EST03/02/2025 11:41 AM EST Narrative Authorizing ProviderResult TypeResult StatusHolly Arsh OCHOACNPLABORATORY Final ResultPerforming OrganizationAddressCity/State/ZIP CodePhone Number [facility] [address] * (ABNORMAL) COMPREHENSIVE METABOLIC PANEL (03/02/2025 11:40 AM EST) Only the most recent of2 resultswithin the time period is included. ComponentValueRef RangeTest MethodAnalysis TimePerformed AtPathologist Signature Protein, Total7.26.3 - 8.0 g/dL03/02/2025 2:01 PM ESTNOR[facility]CO[facility] LABAlbumin4.13.9 - 4.9 g/dL03/02/2025 2:01 PM ESTNORTHCOAST [facility] LABCalcium, Total10.3(H)8.5 - 10.2 mg/dL03/02/2025 2:01 PM EST [facility] LABBilirubin, Total0.20.2 - 1.3 mg/dL 03/02/2025 2:01 PM ESTNORTHCOAKALKASKA MEMORIAL [facility] LABAlkaline Phosphatase 6434 - 123 U/L105/02/2024 2:01 PM ESTNORTSELECT SPECIALTY [facility]OSPITAL LLNWAK42 (L)13 - 35 U/L105/02/2024 2:01 PM [facility] XNZZIP986 - 38 U/L105/02/2024 2:01 PM [facility] OSPTpoehtk86(L) 74 - 99 mg/dL03/02/2025 2:01 PM [facility] LABComment: The [place] Diabetes Association (ADA) provides guidance for cutoff [...] Standards of Medical Care in Diabetes 2016, [place] Diabetes Association. Diabetes Care. 2016.39(Suppl 1). BUN97 - 21 mg/dL03/02/2025 2:01 PM [facility] Creatinine0.54(L)0.58 - 0.96 mg/dL03/02/2025 2:01 PM [facility] BRDKbfftn243(L)136 - 144 mmol/L105/02/2024 2:01 PM [facility] LABPotassium3.93.7 - 5.1 mmol/L105/02/2024 2:01 PM [facility] NVBAkjyeqtn29(L)98 - 107 mmol/L105/02/2024 2:01 PM [facility] FIEXY063(L)22 - 30 mmol/L105/02/2024 2:01 PM [facility] LABAnion Vnh321 - 15 mmol/L105/02/2024 2:01 PM [facility] LABEstimated Glomerular Filtration Qanm158>=60 mL/min/1.73m 03/02/2025 2:01 PM [facility] LABComment:Estimated Glomerular Filtration Rate [...] VolumeCollection TimeReceived TimeBloodBLOOD SPECIMEN / UnknownVenipuncture / Tmqiako6303/02/2025 11:40 AM EST03/02/2025 11:41 AM EST Narrative Authorizing ProviderResult TypeResult StatusHolly Arsh HATHAWAYN.CNPLABORATORY Final ResultPerforming OrganizationAddressCity/State/ZIP CodePhone Number [facility] [address] [place] [address] * (ABNORMAL) COMPLETE BLOOD COUNT AND DIFFERENTIAL (03/02/2025 11:40 AM EST) Only the most recent of2 resultswithin the time period is included. ComponentValueRef RangeTest MethodAnalysis TimePerformed AtPathologist Signature WBC8.643.70 - 11.00 k/uL03/02/2025 11:50 AM ESTNORTSELECT SPECIALTY [facility]ITAL LABRBC3.71(L)3.90 - 5.20 m/uL03/02/2025 11:50 AM [facility] GYFXjdnezwatu13.611.5 - 15.5 g/dL03/02/2025 11:50 AM [facility]NORTSELECT [facility] AGELusilnmnaf41.0(L)36.0 - 46.0 %03/02/2025 11:50 AM EST [facility] LUGUXU82.980.0 - 100.0 fL03/02/2025 11:50 AM ESTNORTHCASPIRUS ONTONAG[facility] IQPDND44.326.0 - 34.0 pg03/02/2025 11:50 AM ESTNORTHCASPIRUS ONTONAG[facility] UXTKLKQ35.230.5 - 36.0 g/dL03/02/2025 11:50 AM [facility] LABRDW-CV13.311.5 - 15.0 %03/02/2025 11:50 AM [facility] LABPlatelet Wqsxc708423 - 400 k/uL 03/02/2025 11:50 AM [facility] LABMPV9.49.0 - 12.7 fL 03/02/2025 11:50 AM [facility] LABNeutrophils %64.5% 03/02/2025 11:50 AM [facility] LABAbs Neut5.571.45 - 7.50 k/uL03/02/2025 11:50 AM [facility] LABLymphocytes %26.7%03/02/2025 11:50 AM [facility] LABAbs Lymph2.31 1.00 - 4.00 k/uL03/02/2025 11:50 AM [facility] Monocytes %7.3%03/02/2025 11:50 AM [facility] LABAbs Mono0.63<0.87 k/uL03/02/2025 11:50 AM [facility] Eosinophils %0.7%03/02/2025 11:50 AM [facility] LABAbs Eosin0.06<0.46 k/uL03/02/2025 11:50 AM [facility] Basophils %0.3%03/02/2025 11:50 AM [facility] LABAbs Baso0.03<0.11 k/uL03/02/2025 11:50 AM [facility] Immature Granulocytes %0.5%03/02/2025 11:50 AM [facility] LABAbs Immature Gran0.04<0.10 k/uL03/02/2025 11:50 AM [facility] LABNRBC0.0/100 WBC03/02/2025 11:50 AM ESTNOR[facility]CO[facility] LABAbsolute nRBC<0.01<0.01 k/uL03/02/2025 11:50 AM EST [facility] LABDiff FxydLipk61/03/2025 11:50 AM EST [facility] LABSpecimen (Source)Anatomical Location / LateralityCollection Method / VolumeCollection TimeReceived TimeBloodBLOOD SPECIMEN / UnknownVenipuncture / Chfoodz0903/02/2025 11:40 AM EST03/02/2025 11:41 AM EST Narrative Authorizing ProviderResult TypeResult Status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 APRN.CNPLABORATORY Final ResultPerforming OrganizationAddressCity/State/ZIP CodePhone Number [facility] [address] [place] [address] * VITAMIN B12 (12/23/2024 11:28 AM EDT)ComponentValueRef RangeTest Method Analysis TimePerformed AtPathologist SignatureVitamin [id number] - 1,245 pg/mL 12/23/2024 7:[address] [facility] LABSpecimen (Source) Anatomical Location / LateralityCollection Method / VolumeCollection Time Received TimeBloodBLOOD SPECIMEN / UnknownVenipuncture / Twhdulh0812/23/2024 11:28 AM EDT12/23/2024 11:28 AM EDT Narrative Authorizing ProviderResult TypeResult Status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 APRN.CNPLABORATORY Final ResultPerforming OrganizationAddressCity/State/ZIP CodePhone Number [facility] [address] [address], * (ABNORMAL) IRON AND TIBC (12/23/2024 11:28 AM EDT)ComponentValueRef RangeTest MethodAnalysis TimePerformed AtPathologist MmspavmxmGazn9749 - 186 ug/dL 12/23/2024 6:[address] [facility] PRQOOWC332(H)232 - 386 ug/dL12/23/2024 6:[address] [facility] LABTransferrin Feishfasor16.315.0 - 57.0 %12/23/2024 6:[address] [facility] LABSpecimen (Source)Anatomical Location / LateralityCollection Method / Volume Collection TimeReceived TimeBloodBLOOD SPECIMEN / UnknownVenipuncture / Wjfsaan8812/23/2024 11:28 AM EDT12/23/2024 11:28 AM EDT Narrative Authorizing ProviderResult TypeResult Status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 APRN.CNPLABORATORY Final ResultPerforming OrganizationAddressCity/State/ZIP CodePhone Number [facility] [address] [place] [phone], * FERRITIN (12/23/2024 11:28 AM EDT)ComponentValueRef RangeTest MethodAnalysis TimePerformed AtPathologist GxvibitneDamozwfz71.514.7 - 205.1 ng/mL12/23/2024 7:00 PM EDBLANCHARD [facility] LABSpecimen (Source)Anatomical Location / LateralityCollection Method / VolumeCollection TimeReceived Time BloodBLOOD SPECIMEN / UnknownVenipuncture / Cmzsprz8812/23/2024 11:28 AM EDT 12/23/2024 11:28 AM EDT Narrative Authorizing ProviderResult TypeResult Chester Caban APRN.CNPLABORATORY Final ResultPerforming OrganizationAddressCity/State/ZIP CodePhone Number [facility] [address] [place] [address], from Last 3 Months Insurance Care Teams Team MemberRelationshipSpecialtyStart DateEnd Date Evans Casas DO [address] [facility] [place] [address] PCP - GeneralFamily Xiziswif89/3/22 Jonny Wilcox MD [address] [place] [address] Primary Staff PhysicianCardiology07/16/18 [place] [address] [place], [place] [id number] PhysicianHematology/Oncology09/14/21 Davida Restrepo, RN [address] [place] [address] Specialty Care CoordinatorHematology/Oncology09/14/21
--- OUTSIDE RECORDS SUMMARY | 2025-03-25 19:17 | XMS_ITS | Clinical Summary ---
Author Organization vogogos tem Address [id number] [address] [place] [address] Care Team Providers Care Director Health Name Role Phone Evans Casas DO Primary Care Provider [phone] Allergies Active AllergyReactionsCriticalityNoted DateCommentsCiprofloxacinDizziness 06/19/2019LactalbuminOther (See Comments)Low05/25/2017 Other reaction(s): GI Upset Crampy and gassy LactoseGI Isfwplztdqb35/14/2018 Diarrhea Milk Containing Products (Dairy)Other (See Comments)Low05/25/2017 [...] in second trimester controlled on oral hypoglycemic drug12/17/20248302Lcrazc56/08/2025MA (advanced maternal age) multigravida 35+11/04/2024ntiphospholipid syndrome 11/04/20246401Dahmdtlexsb49/08/4974Duexrq67/08/2025ntiphospholipid syndrome complicating , imwbyhhtvh86/09/2020Estimated Date of Delivery XtwvcfiuRki88/05/2026Based on last menstrual period of 07/28/2024 Resolved Problems ProblemNoted DateDiagnosed DateResolved DateCerebral infarction, unspecified Migraine without aura and without status migrainosus, not gwrnwvzlcju06 Encounters DateTypeDepartmentCare GlqcTmoelhgpvhz64/18/2025 2:00 PM ESTTelemedicine [facility] Department of [address] [address] Sam Callahan MD MPH Antiphospholipid syndrome complicating , antepartum (Primary Dx); Antiphospholipid syndrome; History of CVA (cerebrovascular accident); Coordination of complex care; 33 weeks gestation of vtbpdzzyx85/18/2025Orders Only [facility] Department of [address] [address] Ref Prov, Not In System 03/17/20252953Sdessx96/12/2025 9:45 AM ESTTelemedicine Maternal- Medicine at [address] [address] Sana Palma MD Khurshid, Nauman, MD Gestational diabetes mellitus (GDM) in second trimester controlled on oral hypoglycemic drug (Primary Dx); Antiphospholipid emlfmlqk26/12/3320Ytaqsd25/07/3919Rouzfp11/23/2025Orders Only [facility] Department of [address] [address] Ref Prov, Not In System 02/18/2025Orders Only [facility] Department of [address] [address] Ref Prov, Not In System 02/16/2025 1:45 PM EDTOffice Visit [facility] Department of [address] [address] Sam Callahan MD MPH Antiphospholipid syndrome (Primary Dx); Antiphospholipid syndrome complicating , antepartum; History of CVA (cerebrovascular accident); Coordination of complex care; 29 weeks gestation of flmgfqamz28/20/2878Fuzrkw03/14/2025Telephone Maternal- Medicine at [facility] [address] [place] [address] Annita Kendall LD 02/06/2025 2:00 PM EDTTelemedicine Maternal- Medicine at [facility] [address] [place] [address] Wilfrid Medina MD 27 weeks gestation of (Primary Dx); Multigravida of advanced maternal age in third trimester; Gestational diabetes mellitus (GDM) in second trimester controlled on oral hypoglycemic drug; Antiphospholipid syndrome complicating , antepartum; Antiphospholipid zfjdutsk43/10/4320Pkchno23/09/1483Zdcscw35/16/2025 10:00 AM EDT Telemedicine Maternal- Medicine at [facility] [address] [place] [address] Davida Smith, YONYC Gestational diabetes mellitus (GDM) in second trimester controlled on oral hypoglycemic drug (Primary Dx); Antiphospholipid syndrome; Other specified hypothyroidism; Antiphospholipid syndrome complicating , fltzgigagm59/16/2025Travel 01/09/2025Telephone Maternal- Medicine at [facility] [address] [place] [address] Wilfrid Medina MD 01/09/2025Orders Only Maternal- Medicine at [facility] [address] [place] [address] Wilfrid Medina MD Antiphospholipid syndrome (Primary Dx)01/07/2025Telephone Maternal- Medicine at [facility] [address] [place] [address] Jacque Pat RN 01/06/2025Telephone Maternal- Medicine at [facility] [address] [place] [address] Margo Khan RN 01/05/2025Orders Only Maternal- Medicine at [facility] [address] [place] [address] Jacque Pat RN Multigravida of advanced maternal age in second trimester (Primary Dx); Antiphospholipid syndrome complicating , antepartum; Gestational diabetes mellitus (GDM) in second trimester controlled on oral hypoglycemic drug; AMA (advanced maternal age) multigravida 35+, second trimester; Hypothyroidism, unspecified type; History of stroke; History of loss in prior , currently in second trimester; Hypothyroidism affecting in second trimester; Family history of autism; Btwlgjtqicvk72/08/2025Documentation Maternal- Medicine at [place] [address] [place] [address] Jacque Pat RN 01/01/2025 2:30 PM EDTTelemedicine Maternal Medicine [place] [address] [address] Wilfrid Medina MD 22 weeks gestation of (Primary Dx); Antiphospholipid syndrome complicating , antepartum; History of stroke; History of loss in prior , currently in second trimester; Gestational diabetes mellitus (GDM) in second trimester controlled on oral hypoglycemic drug; Multigravida of advanced maternal age in second trimester; Hypothyroidism affecting in second trimester; Family history of autism; Eiuqtiymsnee51/04/2025Orders Only Maternal Medicine [place] [address] [address] Iraida Warren RN Multigravida of advanced maternal age in second trimester (Primary Dx); Antiphospholipid syndrome complicating , antepartum; Gestational diabetes mellitus (GDM) in second trimester controlled on oral hypoglycemic drug; Insulin controlled gestational diabetes mellitus (GDM) in second trimester; AMA (advanced maternal age) multigravida 35+, second trimester; Hypothyroidism, unspecified type01/01/20254066Fkutsd06/29/2025Orders Only [facility] - [facility] [address] [place] [address] Wilfrid Medina MD Gestational diabetes mellitus (GDM) in second trimester controlled on oral hypoglycemic drug (Primary Dx)12/26/2024Telephone Maternal- Medicine at [facility] [address] [place] [address] Stephanie Quiros LD from Last 3 Months Family History Medical PrtfntvMbsxysgdEdqxSkmrufdmYzvvgmodZnxrefU3FZBinkgxUurfriNbcisx illness Maternal GrandmotherCancerPaternal GrandfatherDiabetesPaternal IfaymevhywjS3AA CancerPaternal GrandmotherDiabetesPaternal VrupeukadvzP5LBHgasozmgRrgnclA0YA RelationNameStatusCommentsFatherDeceasedMaternal GrandmotherPaternal Grandfather Paternal GrandmotherSister Social History Tobacco UseTypesPacks/DayYears UsedDateSmoking Tobacco: NeverSmokeless Tobacco: Never Tobacco Cessation:Counseling Given: Not Answered Alcohol UseStandard Drinks/WeekCommentsNot Currently0 (1 standard drink = 0.6 oz pure alcohol)ChildcareAnswerDate EsoclcdjFtwbukeqoWuhswqb47/31/2019Employment AnswerDate GtrrkhxdDofglhpqruTqhzhqa29/31/2019Hunger ScreeningAnswerDate RecordedWithin the past 12 months we worried whether our food would run out before we got money to buy more.Never True01/01/2025Within the past 12 months the food we bought just didn't last and we didn't have money to get more.Never True01/01/2025Purpose - LifeAnswerDate RecordedPurpose and direction in life Zdzdetb60/11/2021Estimated Date of CdbflqqvIebnrwigYpy64/05/2026Based on last menstrual period of 07/28/2024Sex and Gender InformationValueDate Recorded Sex Assigned at BirthNot on fileLegal TfkNsyiqr16/31/2019 12:25 PM EDTGender IdentityNot on fileSexual OrientationNot on file Last Filed Vital Signs Vital SignReadingTime TakenCommentsBlood Djdudjia575/801 1:44 PM EDT Vosje452102/16/2025 1:44 PM EDTTemperature--Respiratory Zmow5093 1:44 PM EDTOxygen Saturation--Inhaled Oxygen Concentration--Fcorvh20.8 kg (209 lb) 02/16/2025 1:44 PM MTYHjbqum734.6 cm (5' 6 )02/16/2025 1:44 PM EDTBody Mass Index33.7302/16/2025 1:44 PM EDT Plan of Treatment DateTypeDepartmentCare Team (Latest Contact Info)Ejpyhmrcxfy21/09/2025 1:30 PM ESTTelemedicine Maternal- Medicine at [facility] [address] [place] [address] Davida Smith PA-C [address] [address] Health MaintenanceDue DateLast DoneCommentsDepression Bywryuwyi77/24/1998Adult BMI Follow Up Plan10/22/2003DTaP,Tdap and Td Vaccines (2 - Td or Tdap)07/03/2024 07/03/2014Influenza Mibpbsr8112/29/2024Pap SmearSV ( or age 60+ yrs) (1 - Risk 1-dose series)03/09/2025dult BMI Screening Tobacco Pzwfobrst40 Medical Devices Not on file Procedures Procedure NamePriorityDate/TimeAssociated DiagnosisCommentsEXTERNAL LAB ORDERS / FBFXSLVBpplrsn10/18/2025 4:22 PM ESTEXTERNAL LAB ORDERS / RESULTSRoutine 02/19/2025 3:15 PM EDTEXTERNAL LAB ORDERS / SOKDMXXPybjvsw87/23/2025 3:13 PM EDT EXTERNAL LAB ORDERS / KEBPAFUXabnlcp33/22/2025 1:58 PM EDTUS MFM OB FOLLOW-UP, 1 IWMILIozbwge66/09/2025 2:10 PM EDT Multigravida of advanced maternal age in second trimester Antiphospholipid syndrome complicating , antepartum Gestational diabetes mellitus (GDM) in second trimester controlled on oral hypoglycemic drug Insulin controlled gestational diabetes mellitus (GDM) in second trimester AMA (advanced maternal age) multigravida 35+, second trimester Hypothyroidism, unspecified type [facility] COMPREHENSIVE ANATOMIC RPZUHLWijzjpo24/04/2025 2:24 PM EDT Screening, , for anatomic survey Multigravida of advanced maternal age in second trimester from Last 3 Months Results * External Lab Orders / Results (03/17/2025 4:22 PM EST) Only the most recent of4 resultswithin the time period is included. Narrative Authorizing ProviderResult TypeResult StatusNot In System Ref ProvLAB ORDERABLES Final ResultPerforming OrganizationAddressCity/State/ZIP CodePhone Number MANUALLY TRANSCRIBED RESULTS * [facility] OB FOLLOW-UP, 1 FETUS (02/05/2025 2:10 PM EDT) Only the most recent of2 resultswithin the time period is included. Anatomical RegionLateralityModalityOB-GYNUltrasoundSpecimen (Source)Anatomical Location / LateralityCollection Method / VolumeCollection TimeReceived Time 02/05/2025 1:21 PM EDT Narrative 02/06/2025 5:22 PM EDT NAME: ??JUSTICE LEUNG : 1985 SEX: F Accession Number: [id number] ORDERING PHYSICIAN: MYA MASSEY REFERRING PHYSICIAN: MYA MASSEY Coding Procedures ? 40115: Ultrasound, uterus, real time with image documentation, follow up,transabdominal ? approach per fetus ? 75591: Echocardiography, , cardiovascular system, real time with image documentation (2D), with or ? without M-mode recording; follow-up or repeat study Indication Screening for follow-up survey, Screening for congenital cardiac abnormality , Gestational diabetes, AMA- Supervision of elderly , Supervision of high risk -(MOB son - hypospadia, MOB -son - laryngomalacia ), Obesity in , Hypothyroidism. History OB History ? 7. Para 3 ? U8H1E1B2 Current Cell free DNA ?Low Risk analysis [...] (oz) ? 4 oz EFW by: ?Hadlock (OBF-VS-AA-FL) Extended Tibia ??46.0 mm 28w 0d 68% [...] Heart/Thorax: 4-chamber view. RVOT view. 3-vessel view. 6-ljffpz-fqzerdo view. Great vessels. ? Right lung. Left [...] previously RVOT view ?normal 3-vessel view ??normal 0-qkgdzf-jdkgxwh view ??normal Aortic arch view ? normal [...] MVP measures 6.7 cm. Recommendations Please see [facility] recommendations from prior clinical and/or ultrasound report documentation. anatomic survey is incomplete (suboptimal spine images) due to late gestational age and suboptimal visualization. Patient is not scheduled to return for additional ultrasound. Please reschedule for specific concerns or indications. Subsequent follow up or other follow up as clinically determined by primary OB provider unless otherwise specified by [facility]. Results forwarded to ordering provider so they can follow up with the patient as necessary. Procedure Note Lala Gross MD - 02/06/2025 NAME: JUSTICE LEUNG : 1985 SEX: F Accession Number: [id number] ORDERING PHYSICIAN: MYA MASSEY REFERRING PHYSICIAN: MYA MASSEY Coding Procedures 07062: Ultrasound, uterus, real time with image documentation, follow up, transabdominal approach per fetus 86244: Echocardiography, , cardiovascular system, real timewith image documentation (2D), with or without M-mode recording; follow-up or repeat study Indication Screening for follow-up survey, Screening for congenital cardiacabnormality , Gestational diabetes, AMA- Supervision of elderly , Supervision of high risk -(MOB son - hypospadia, MOB -son - laryngomalacia ), Obesity in , Hypothyroidism. History OB History 7. Para 3 [id number] Current Cell free DNA Low Risk analysis [...] EFW (oz) 4 oz EFW by: Hadlock (XOB-DI-VZ-FL) Extended Tibia 46.0 mm 28w 0d 68% [...] Heart/Thorax: 4-chamber view. RVOT view. 3-vessel view. 1-rcdplr-ucdfqdnklzb. Great vessels. Right lung. Left lung. Diaphragm. [...] previously RVOT view normal 3-vessel view normal 9-fwkipf-itbvfje view normal Aortic arch view normal Ductal [...] MVP measures 6.7 cm. Recommendations Please see [facility] recommendations from prior clinical and/or ultrasoundreport documentation. anatomic survey is incomplete (suboptimal spine images) due to late gestational age and suboptimal visualization. Patient is not scheduled to return for additional ultrasound. Pleasereschedule for specific concerns or indications. Subsequent follow up or other follow up as clinically determined byprimary OB provider unless otherwise specified by [facility]. Results forwarded to ordering provider so they can follow up with thepatient as necessary. Authorizing ProviderResult TypeResult StatusCorey Spencer GUTIERREZ US ORDERABLES Final Result from Last 3 Months Insurance Care Teams Team MemberRelationshipSpecialtyStart DateEnd Date Evans Casas DO PCP - GeneralFamily Medicine07/07/19
--- OUTSIDE RECORDS SUMMARY | 2025-03-25 19:17 | XMS_ITS | Encounter Summary ---
Author Organization [facility] tem Address [id number] [address] [place] [address] Care Team Providers Care Hospital Librarian Name Role Phone Augusto Evans Tony DO Primary Care Provider [phone] Encounter Details DateTypeDepartmentCare Team (Latest Contact Info)Nfcqjacysgx26/18/2025Orders Only [facility] Department of [address] [address] Ref Prov, [place] [address] Social History Tobacco UseTypesPacks/DayYears UsedDateSmoking Tobacco: NeverSmokeless Tobacco: NeverAlcohol UseStandard Drinks/WeekCommentsNot Currently0 (1 standard drink = 0.6 oz pure alcohol)ChildcareAnswerDate NoclahtpUhmnpygscWidcist83/31/2019 EmploymentAnswerDate XubdwvtzNclurikhjxEfiycjh76/31/2019Hunger ScreeningAnswer Date RecordedWithin the past 12 months we worried whether our food would run out before we got money to buy more.Never True01/01/2025Within the past 12 months the food we bought just didn't last and we didn't have money to get more.Never True01/01/2025Purpose - LifeAnswerDate RecordedPurpose and direction in life Rolxawd01/11/2021Estimated Date of EajlgbvbZgxxfspuEmb25/05/2026Based on last menstrual period of 07/28/2024Sex and Gender InformationValueDate Recorded Sex Assigned at BirthNot on fileLegal XexOkcevq78/31/2019 12:25 PM EDTGender IdentityNot on fileSexual OrientationNot on filedocumented as of this encounter Plan of Treatment DateTypeDepartmentCare Team (Latest Contact Info)Thlrnkzadkk26/09/2025 1:30 PM ESTTelemedicine Maternal- Medicine at [facility] [address] [place] [address] Davida Smith PA-C [address] [facility] [address] [place] [address] documented as of this encounter Procedures Procedure NamePriorityDate/TimeAssociated DiagnosisCommentsEXTERNAL LAB ORDERS / OBTMRDIWajgxuw05/18/2025 4:22 PM ESTdocumented in this encounter Results [...]
--- OUTSIDE RECORDS SUMMARY | 2025-03-25 19:17 | XMS_ITS | Encounter Summary ---
Author Organization [facility] Address [address] [facility] [facility] [place] [address] Care Team Providers Care Color Control Operator Name Role Phone Evans Casas MD Primary Care Provider [phone] Encounter Details DateTypeDepartmentCare Team (Latest Contact Info)Nujjhulspah25/20/2025linisync Result Encounter [facility] External Department Unsolicited Mya Herrmann DO [address] [place], [facility]11 Social History Tobacco UseTypesPacks/DayYears UsedDateSmoking Tobacco: NeverSmokeless Tobacco: NeverAlcohol UseStandard Drinks/WeekCommentsNever0 (1 standard drink = 0.6 oz pure alcohol)PHQ-2AnswerDate RecordedPatient Health Questionnaire-2 Score0 03/03/2025Estimated Date of TmyhlrkcWyhnoeqzLae30/05/2026Based on last menstrual period of 07/28/2024Sex and Gender InformationValueDate RecordedSex Assigned at BirthNot on fileLegal EswDxakcb62/15/2023 11:19 PM EDTGender IdentityNot on fileSexual OrientationNot on filedocumented as of this encounter Plan of Treatment DateTypeDepartmentCare Team (Latest Contact Info)Wvcxhmjqjoh53/10/2025 1:40 PM ESTRoutine [facility] [place] [facility] [address] [place] [address] Mya Herrmann DO [address] [place] [address] 04/15/2025 1:50 PM ESTRoutine [facility] [place] [facility] [address] [place] [place] [address] Mya Herrmann, DO [address] [facility] [place] [address] documented as of this encounter Procedures Procedure NamePriorityDate/TimeAssociated DiagnosisCommentsUS OB GROWTH 03/19/2025 11:51 PM EST documented in this encounter Results * US OB GROWTH (03/19/2025 11:51 PM EST)Anatomical RegionLateralityModalityOther Specimen (Source)Anatomical Location / LateralityCollection Method / Volume Collection TimeReceived Time03/19/2025 11:51 PM EST Narrative 03/19/2025 11:53 PM EST [facility] ?[address] ? [place] [address] ? Ultrasound Report ? Signed ? Patient: JUSTICE,MADHU S ?MR#: [id number] ?? : 1985 ?Acct:[id number] ?? Age/Sex: 39 / F ?ADM Date: 03/19/25 ?? Loc: US ? Attending Dr: Mya Herrmann D.O. ? Ordering Physician: Mya Herrmann D.O. ?? Date of Service: 03/19/25 ?? Procedure(s): US OB growth ?? Accession Number(s): [id number] ? cc: Mya Herrmann D.O.; Physician,Non-Staff M.D. ? [facility] ? [address] ? [place] [address] ? Patient Name: ?? MADHU RENDON ? MRN: [id number] ? date: 1985 ?Sex: F ?? Assigned Patient Location: US ?? Current Patient Location: ? Accession/Order Number: [id number] ?? Exam Date: 03/19/2025 ??19:20 ?Report Date: [...] M.D. ??03/19/2025 11:51 PM ? Dictation Location: [place] [address] ? Electronically authenticated by: [id number] ??Y ?? Date: 03/19/2025 ??23:51 ? Dictated By: ?Robert Beltrán D.O. ? Signed By: ?03/19/25 2353 ? DD/ 2351 ? TD/TT: ? Is/It Project Manager: Procedure Note Radiology, Radiologist, - 03/19/2025 [place] [address] Ultrasound Report Signed Patient: MADHU RENDON SMR#: [id number] : 1985Acct:[id number] Age/Sex: 39 / FADM Date: 03/19/25 Loc: US Attending Dr: Mya Herrmann D.O. Ordering Physician: Mya Herrmann D.O. Date of Service: 03/19/25 Procedure(s): US OB growth Accession Number(s): [id number] cc: Mya Herrmann D.O.; Physician,Non-Staff MGiovanni The [address] [address] Patient Name: MADHU RENDON MRN: [id number] date: 1985 Sex: F Assigned Patient Location: Current Patient Location: Accession/Order Number: [id number] Exam Date: 03/19/2025 19:20 Report Date: 03/19/2025 [...] Beltrán M.D. 03/19/2025 11:51 PM Dictation Location: [place] [address] Electronically authenticated by: [id number] Y Date: 3:51 Dictated By: Robert Beltrán D.O. Signed By:03/19/252352 DD/ 50 TD/TT: Is/It Project Manager: Authorizing ProviderResult TypeResult StatusCorey Montez DOCLINISYNC IMAGINGFinal Result documented in this encounter Visit Diagnoses Not on filedocumented in this encounter Care Teams Team MemberRelationshipSpecialtyStart DateEnd Date Evans Casas MD [address] [facility] [place] [address] PCP - GeneralFamily Medicine11/07/23documented as of this encounter
--- OUTSIDE RECORDS SUMMARY | 2025-03-25 19:18 | XMS_ITS | Encounter Summary ---
Author Organization [facility] Address [address] [facility] [place] [address] Care Team Providers Care Real Estate Processor Name Role Phone Evans Casas MD Primary Care Provider [phone] Encounter Details DateTypeDepartmentCare Team (Latest Contact Info)Wdzskyxdmmw06/24/2025bstract NOM[facility] [address] [place] [address] Wilton Herrmann DO [address] [place], [facility]11 Social History Tobacco UseTypesPacks/DayYears UsedDateSmoking Tobacco: NeverSmokeless Tobacco: NeverAlcohol UseStandard Drinks/WeekCommentsNever0 (1 standard drink = 0.6 oz pure alcohol)PHQ-2AnswerDate RecordedPatient Health Questionnaire-2 Score0 03/03/2025Estimated Date of UmclmxqwFypkttzhSak62/05/2026ased on last menstrual period of 07/28/2024Sex and Gender InformationValueDate RecordedSex Assigned at BirthNot on fileLegal KckBgombv81/15/2023 11:19 PM EDTGender IdentityNot on fileSexual OrientationNot on filedocumented as of this encounter Plan of Treatment DateTypeDepartmentCare Team (Latest Contact Info)Rpbliuvoqkf91/10/2025 1:40 PM ESTRoutine [facility] [address] [place] [address] Witlon Herrmann [address] [facility] [place] [address] 04/15/2025 1:50 PM ESTRoutine [facility] [place] [facility] [address] [facility] [place] [place] [address] Wilton Herrmann, [address] [facility] [place] [address] documented as of this encounter Visit Diagnoses Not on filedocumented in this encounter Care Teams Team MemberRelationshipSpecialtyStart DateEnd Date Evans Casas MD [address] [place] [address] PCP - GeneralFamily Medicine11/07/23documented as of this encounter
--- OUTSIDE RECORDS SUMMARY | 2025-03-25 19:18 | XMS_ITS | Encounter Summary ---
Author Organization [facility] Address [address] [facility] [place] [address] Care Team Providers Care Wire Weaver Helper Name Role Phone Evans Casas MD Primary Care Provider [phone] Encounter Details DateTypeDepartmentCare Team (Latest Contact Info)Vyztdhltyxh35/26/2025amboo flowsheet [facility] [place] [facility] [address] [place] [address] Wilton Herrmann DO [address] [place], [place] [address] Social History Tobacco UseTypesPacks/DayYears UsedDateSmoking Tobacco: NeverSmokeless Tobacco: NeverAlcohol UseStandard Drinks/WeekCommentsNever0 (1 standard drink = 0.6 oz pure alcohol)PHQ-2AnswerDate RecordedPatient Health Questionnaire-2 Score0 03/03/2025Estimated Date of OqxbjemtFpvyevobToz64/05/2026Based on last menstrual period of 07/28/2024Sex and Gender InformationValueDate RecordedSex Assigned at BirthNot on fileLegal NsyToqqoq68/15/2023 11:19 PM EDTGender IdentityNot on fileSexual OrientationNot on filedocumented as of this encounter Plan of Treatment DateTypeDepartmentCare Team (Latest Contact Info)Mefmwgopurl55/10/2025 1:40 PM ESTRoutine [facility] [place] [facility] [address] [place] [address] Wilton Herrmann, DO [address] [facility] [place] [address] 04/15/2025 1:50 PM ESTRoutine [facility] [place] [facility] [address] [facility] [place] [address] Wilton Herrmann, [address] [facility] [address] [place], [facility]11 documented as of this encounter Visit Diagnoses Not on filedocumented in this encounter Care Teams Team MemberRelationshipSpecialtyStart DateEnd Date Evans Casas MD [address] [place] [address] PCP - GeneralFamily Medicine11/07/23documented as of this encounter
--- OUTSIDE RECORDS SUMMARY | 2025-03-25 19:18 | XMS_ITS | Clinical Summary ---
Author Organization [facility] Address [address] [facility], [address] [place] [address] Care Team Providers Care Warehouse Picker Name Role Phone Evans Casas DO Primary Care Provider [phone] Allergies Active AllergyReactionsCriticalityNoted DateCommentsCiprofloxacinOther (See Comments)06/19/2019Ciprofloxacin-Fluocinolone PfOther [...] elevated without history of HTN12/11/2023ry mouth 12/11/2023Environmental rbmazlpuj91/13/2024H/O: hkjjgxmyhgwtkj33/13/2024History of utzxgx3212/11/2023History of gestational aytqgqyl33/13/2024History of kidney uyinno9612/11/2023Hx of iron deficiency salwcy4412/11/2023Immunization not carried out because of patient iqmlgwll88/13/2024Morbid mokbesl9412/11/2023Non-smoker 12/11/2023OSA (obstructive sleep apnea)12/11/2023ight otitis wxpmijm2212/11/2023 Abdominal pain06/12/2023cute bronchitis due to ugmzlhgtx71/13/2024nxiety 06/12/2023ysfunction of eustachian tube06/12/20236796Qastiqx16/13/2024Hematochezia 06/12/2023History of severe acute respiratory syndrome coronavirus 2 (SARS-CoV-2) zqnqhol5306/12/20239990Bqpepdlhmelq54/13/2024Inhalation euvtxz4206/12/2023 upfuzfu2806/12/2023sychogenic ebupjlmvfmbxqfec18/13/2024Suspected severe acute respiratory syndrome coronavirus 2 (SARS-CoV-2) gilvdhcxx87/13/2024 Primary hypercoagulable state08/01/2022estational diabetes mellitus in , unspecified hyhkrpv8501/26/2022Genitourinary jgkqecen48/22/2022Muscle jtoywuhldteee23/22/2022TIA (transient ischemic attack)06/16/2020erebrovascular accident (CVA) due to stenosis of middle cerebral euypsb2102/22/2020Anticoagulant long-term use02/22/2020Acute posthemorrhagic jbeyni5901/16/202039 weeks gestation of cobeyjjtm94/18/2020Anemia complicating mjxtdlzzat10/18/2020Endocrine, nutritional and metabolic diseases complicating vcgclkuibn39/18/2020First degree perineal laceration during esmunwnf06/18/2020Other immediate qjpynqumnm39/18/2020Personal history of transient ischemic attack (TIA), and cerebral infarction without residual ahlqwjho94/18/2020Personal history of urinary (tract) jzsorvvxno39/18/2020Single live birth01/15/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01/08/202038 weeks gestation of ppwfaljyz14/09/2020Pruritus, dtatirkhehw59/04/202037 weeks gestation of rtdgdjvgi20/04/042427 weeks gestation of hrnihbkkf20/01/2020Other speech and language deficits following cerebral iuiwvxndnn77/01/2020Other diseases of the blood and blood-forming organs and certain disorders involving the immune mech anism complicating qjdmmoaeez07/25/840722 weeks gestation of efbjmrsaf30/24/2020 34 weeks gestation of pnluhqgjo47/18/220628 weeks gestation of 12/10/201932 weeks gestation of shvhokypz23/31/2020Thrombocytopenia, unspecified 11/20/2019Other general symptoms and signs10/28/2019Urinary tract infection, site not iprxrtjxw06/18/1052Zvjivoyqwqdb90/28/2020SVT (supraventricular tachycardia)08/26/2019Antiphospholipid antibody /09/2020Other bacterial infections of unspecified site06/27/2019Less than 8 weeks gestation of yjzciudmu82/06/2020Encounter for supervision of normal , unspecified, first awlyuehlo47/30/8407Yhiayxdlwwln01/17/2020Cerebral infarction, unspecified 05/16/2019Paresthesia of skin05/16/2019Deficiency of other specified B group hkmovdrc47/17/2020Hypothyroidism, okrxwbqqbek41/17/2020Unspecified condition associated with female genital organs and menstrual cycle05/09/2019Vomiting of , jitmhodvugr75/06/2020Other specified noninflammatory disorders of jlfyzc0702/21/2019Frequency of fmmtgrptzmo70/23/2019Unspecified ovarian cyst, right side02/06/2019Coagulation defect, oruaulqsbzn29/09/2019Cervicalgia 02/05/2019Long term (current) use of 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/vxkhkevtsfjtb78/09/2019 Dizziness and mjmigrskd70/09/2019Other acute postprocedural pain02/03/2019Pelvic and perineal pain02/01/2019Syncope and /04/2019Anticardiolipin antibody nofnhzcn84/29/2018Migraine without aura and without status migrainosus, not pzmyhpurndb50/16/2018Antiphospholipid antibody /14/2018Pain in joint12/29/20162748Xhvytel46/01/2017Idiopathic progressive /01/2017 Resolved Problems ProblemNoted DateDiagnosed DateResolved BqvsNgwkj15/ Encounters DateTypeDepartmentCare IoskJdnykjfutje31/24/2025 2:30 PM EDTOffice Visit [facility] [address] [place] [address] [place] [phone] Peng Osorio MD Antiphospholipid antibody syndrome (Primary [...] InformationValueDate RecordedSex Assigned at BirthNot on fileLegal XhsDtvxha90/14/2017 2:04 PM EDT Gender IdentityNot on fileSexual OrientationNot on file Last Filed Vital Signs Vital SignReadingTime TakenCommentsBlood Fkowioky310/6409 2:40 PM EDT Avuec097301/21/2025 2:40 PM ZSTUzlzjzjxrio70.2 ??C (97.2 ??F)02/09/2022 11:22 AM EDTRespiratory Gvlr5533 11:22 AM EDTOxygen Avswhdwdjs07%10/04/2020 2:01 PM EDTInhaled Oxygen Concentration--Nxuwbq97.8 kg (209 lb)01/21/2025 2:40 PM EDT Gkalee675.6 cm (5' 6 )02/09/2022 11:22 AM EDTBody Mass Index33.7302/09/2022 11:22 AM EDT Plan of Treatment DateTypeDepartmentCare Team (Latest Contact Info)Ntkdpwrbguk72/25/2026 1:45 PM EDTOffice Visit [facility] [address] [place] [address] [place] [phone] Peng Osorio MD [address] [place] [address] [place] [phone] 6 MOS FUPHealth MaintenanceDue DateLast DoneCommentsDepression Nfpjgd7610/21/1997 Varicella vaccine (1 of 2 - 13+ 2-dose series)1998Hepatitis C screen 10/22/2003Hepatitis B vaccine (1 of 3 - 19+ 3-dose series)2004Pap smear 2006Cervical cancer rnhozq4910/22/2015HPV (without or with Pap)10/22/2015 DTaP/Tdap/Td vaccine (2 [...] Procedure NamePriorityDate/TimeAssociated DiagnosisCommentsHIV-1,-2 W/REFLEX TO HIV-1 WESTERN VTAQRcyozgo47/01/2017 11:49 AM EDT Arthralgia, unspecified joint Fatigue, unspecified type Sensation disorder from Last 3 Months or Most Recently Relevant to Health Maintenance Results * Hiv-1,-2 W/Reflex To Hiv-1 Western Blot (12/29/2016 11:49 AM EDT)Component ValueRef RangeTest MethodAnalysis TimePerformed AtPathologist Signature HIV-1/HIV-2 UlVupszrxmMetioskx32/03/2017 12:03 AM [facility] Comment: Based on the non-reactive anti-HIV (BRENDEN) screen, the HIV Western blot is not indicated and therefore not performed. INTERPRETIVE INFORMATION: HIV-1,-2 w/Reflex to HIV-1 Western Blot This assay should not be used for blood donor screening, associated re-entry protocols, or for screening Human Cells, Tissues and Cellular and Tissue-Based Products (HCT/P). Performed by [facility], [facility] [address] [email or web address], Zhang Bledsoe MD - Lab. Director Specimen (Source)Anatomical Location / LateralityCollection Method / Volume Collection TimeReceived TimeBLOOD SPECIMEN / Clfxtfa4212/29/2016 11:49 AM EDT 12/29/2016 1:50 PM EDT Narrative Authorizing ProviderResult TypeResult StatusRitiki Monroe MDHEMATOLOGY ORDERABLES Final ResultPerforming OrganizationAddressCity/State/ZIP CodePhone Number [facility] [address] [place] [address], [facility] [phone] from Last 3 Months or Most Recently Relevant to Health Maintenance Insurance Care Teams Team MemberRelationshipSpecialtyStart DateEnd Date Evans Casas DO [address] [place] [address] PCP - GeneralFamily Medicine10/04/20
[2025-03-25 19:52] VITALS: BP 121/73; PULSE 89
== END 2025-03-25 20:25 | disposition home or self-care (01) ==
LOC: US 19:12 → FBC 19:16
PROVIDERS: Visit Provider Obstetrics & Gynecology
DX: Z34.93 Encounter for supervision of normal pregnancy, unspecified, third trimester (principal); Z3A.34 34 weeks gestation of pregnancy
CPT/HCPCS: 76818

== ENCOUNTER 2025-03-30 18:16 | Outpatient (OUT) | payer MEDICAID, SELFPAY ==
--- OUTSIDE RECORDS SUMMARY | 2025-03-17 14:00 | XMS_ITS | Encounter Summary ---
Author Organization [facility] tem Address [facility] [address] [place] [address] Care Team Providers Care High Density Talc Coater Operator Name Role Phone Evans Casas DO Primary Care Provider [phone] Encounter Details DateTypeDepartmentCare Team (Latest Contact Info)Kqjyeldpkth17/18/2025 2:00 PM ESTTelemedicine [facility], A Department of [address] [address] Sam Callahan MD MPH [address] [place] [address] Antiphospholipid syndrome complicating , antepartum (Primary Dx); Antiphospholipid syndrome; History of CVA (cerebrovascular accident); Coordination of complex care; 33 weeks gestation of Social History Tobacco UseTypesPacks/DayYears UsedDateSmoking Tobacco: NeverSmokeless Tobacco: NeverAlcohol UseStandard Drinks/WeekCommentsNot Currently0 (1 standard drink = 0.6 oz pure alcohol)ChildcareAnswerDate HrvzypbqSlmdzpzwfPrizaja77/31/2019 EmploymentAnswerDate MeuiyhexGapaiyfsgcDlajnfo74/31/2019Hunger ScreeningAnswer Date RecordedWithin the past 12 months we worried whether our food would run out before we got money to buy more.Never True01/01/2025Within the past 12 months the food we bought just didn't last and we didn't have money to get more.Never True01/01/2025Purpose - LifeAnswerDate RecordedPurpose and direction in life Rtbhnsw01/11/2021Estimated Date of KwlpgrirDklegtnhJld82/05/2026Based on last menstrual period of 07/28/2024Sex and Gender InformationValueDate Recorded Sex Assigned at BirthNot on fileLegal JuzLulvma95/31/2019 12:25 PM EDTGender IdentityNot on fileSexual OrientationNot on filedocumented as of this encounter Progress Notes * Sam Callahan MD MPH - 03/17/2025 2:00 PM EST Images from the original note were not included. Video Visit via Real-time Synchronous Audiovisual Provider Location: [facility], A DEPARTMENT OF [facility], A DEPARTMENT OF [address] [address] Patient Location: Patient's home Patient Location Radio Operator: None Video Visit Consent Statement: I discussed [...] that there are some limitations compared to ldbe-rw-sytl evaluations. We elected to proceed. ADULT RHEUMATOLOGY CLINIC NOTE [address] [place] [phone] Patient Name: Sanna Bone Subjective Reason for [...] following with two outside specialists (Neurology at [facility] and Hematology at [facility]) for management of her APS. The [...] health issues unclear exact diagnoses Note from [facility] Provider (Dr. Medina): Recent note from Neurologist: Interval Hx: The patient presents virtually for a follow up visit. [facility] that her NASEEM by IFA, dsDNA, and complement levels were negative / normal. We did note that the KELLEN panel is not available in the results that were scanned to us a few weeksago and we will need to verify these results. Subjective Review of Systems: see above for [...] Clean off finger before testing blood glucose. azithromycin (ZITHROMAX) 250 mg tablet Take 1 tablet (250 mg total) by mouth in the morning. Take 2tablets the first day, then 1 tablet daily for 4 days. blood sugar diagnostic (glucose blood) strip 1 [...] 15 days and change 2 each 6 CEPHalexin (KEFLEX) 500 mg capsule Take 1 capsule (500 mg total) by mouth in the morning and 1 capsule (500 mg total) at noon and 1 capsule (500 mg total) in the evening and 1 capsule (500 mg total) before bedtime. docusate sodium (COLACE) 100 mg capsule Take [...] 1000 mg at night. 90 tablet 4 pen [...] tablet and swallow in the morning. 6 progesterone (PROMETRIUM) 200 mg capsule Take 1 [...] Anemia Antiphospholipid antibody syndrome Cerebral infarction, unspecified ([facility]) 05/16/2019 Hypothyroid Migraine without aura and without status migrainosus, not intractable 09/12/2017 Stroke ([facility]) 2016 reviewed. Social History Social [...] and problem list. Objective Objective Physical Exam: Patient is well appearing. Conjunctiva are clear. Breathing comfortably through the nose. Lips are pink. Respiratory pattern is normal. Speech is normal. Patient's affect is normal. Patient is sitting comfortable upright in chair. With full ROM of hands, wrist, elbows and shoulders. PARTIDA-28 (If Applicable) There is currently no [...] EMR. Assessment / Recommendations 1. Antiphospholipid syndrome complicating , antepartum 2. Antiphospholipid syndrome 3. History of CVA (cerebrovascular accident) 4. Coordination of complex care 5. 33 weeks gestation of Overall Impression: Sanna Bone [...] weeks . She is currently following with [facility] for her , neurology through the [employer] system, and hematology through [facility]. Based on extensive review of her outside records I do agree that the patient has clinical and serological findings to support a diagnosis of APS. However, it is less clear if she has a concurrent systemic autoimmune disease such as SLE because her lab work is incomplete (never had an NASEEM by IFA). At her last visit we ordered additional autoimmune serological work up. Thus far her testing has been negative which includes NASEEM by IFA, dsDNA, and complement levels. I also had our staff [facility] KELLEN [facility]. We were faxed the result after the patient's visit which showed that her KELLEN panel testing was negative as well. Recommendations: Labs, Imaging, Special Studies: No orders of the defined types were placed in this encounter. Treatment Plan: -additional autoimmune testing is negative, so no need to initiate HCQ during this -I agree with continuing therapeutic dose lovenox [...] factor appropriate cancer screening and immunizations. Follow-up: -FITO Callahan MD, MPH [facility] [address] [place] [phone] Total time spent was 45 minutes: Preparing to see the patient (e.g., review of tests) Obtaining and/or reviewing separately obtained history Performing a medically appropriate examination and/or evaluation Counseling and educating the patient/family/caregiver Referring and communicating with other health livestock caretaker (not separately reported) Documenting clinical information in the electronic or other health record Independently interpreting results (not separately reported) and communicating results to the patient/family/caregiver Care coordination (not separately reported) This note was created with the assistance of a speech recognition program. While intending to generate a timely document that accurately reflects the content of the visit, no guarantee can be provided that every grammatical or spelling mistake has been or will be identified or corrected. Thank you for your understanding. documented in this encounter Plan of Treatment DateTypeDepartmentCare Team (Latest Contact Info)Ckdheothbhy80/09/2025 1:30 PM ESTTelemedicine Maternal- Medicine at [facility] [address] [place] [address] Davida Smith PA-C [address] [address] documented as of this encounter Visit Diagnoses Diagnosis Antiphospholipid syndrome complicating , antepartum- Primary Antiphospholipid syndrome Primary hypercoagulable state History of CVA (cerebrovascular accident) Transient ischemic attack (TIA), and cerebral infarction without residual deficits Coordination of complex care 33 weeks gestation of documented in this encounter Care Teams Team MemberRelationshipSpecialtyStart DateEnd Date Evans Casas DO PCP - GeneralFamily Medicine07/07/19documented as of this encounter
--- OUTSIDE RECORDS SUMMARY | 2025-03-25 11:10 | XMS_ITS | Encounter Summary ---
Author Organization [facility] Address [address] [place] [address] Care Team Providers Care Set Up Mechanic Automatic Line Name Role Phone Evans Casas MD Primary Care Provider [phone] Reason for Visit * ReasonCommentsRoutine Visit Encounter Details DateTypeDepartmentCare Team (Latest Contact Info)Iqckuspyebq86/26/2025 11:10 AM ESTRoutine [facility] [address] [place] [address] Wilton Herrmann DO [address] [place] [address] Third trimester ([facility]); 34 weeks gestation of ([facility]); Anemia complicating childbirth ([facility]); Anticoagulant long-term use; Antiphospholipid antibody positive; Antiphospholipid antibody syndrome ([facility]); Thyroid disease Social History Tobacco UseTypesPacks/DayYears UsedDateSmoking Tobacco: NeverSmokeless Tobacco: NeverAlcohol UseStandard Drinks/WeekCommentsNever0 (1 standard drink = 0.6 oz pure alcohol)PHQ-2AnswerDate RecordedPatient Health Questionnaire-2 Score0 03/03/2025Estimated Date of CbphdgxhWsvibfojQfi85/05/2026ased on last menstrual period of 07/28/2024Sex and Gender InformationValueDate RecordedSex Assigned at BirthNot on fileLegal LugLfscpm00/15/2023 11:19 PM EDTGender IdentityNot on fileSexual OrientationNot on filedocumented as of this encounter Last Filed Vital Signs Vital SignReadingTime TakenCommentsBlood Nixjzdwk692/7211/ 11:25 AM EST Pulse--Temperature--Respiratory Rate--Oxygen Saturation--Inhaled Oxygen Concentration--Mqpwht75.9 kg (211 lb 8 oz)03/25/2025 11:25 AM [...] Diagnosis Date Noted 32 weeks gestation of ([facility]) 11/28/2019 Abdominal pain 06/12/2023 Acute bronchitis due to infection 06/12/2023 Acute on chronic vesicular eczema of hands and feet 11/15/2023 Anemia complicating childbirth ([facility]) 01/16/2020 Anticoagulant long-term use 02/22/2020 Antiphospholipid antibody positive 09/10/2017 Antiphospholipid antibody syndrome ([facility]) 07/07/2019 Anxiety 06/12/2023 Blood pressure elevated without history of HTN 11/15/2023 BMI 37.0-37.9, adult 11/15/2023 Cerebral infarction, unspecified ([facility]) 05/16/2019 Cerebrovascular accident (CVA) due to stenosis of middle cerebral artery ([facility]) 02/22/2020 Cervicalgia 02/05/2019 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 ([facility]) 01/08/2020 Coagulation defect, unspecified ([facility]) 02/05/2019 Cold intolerance 11/15/2023 Deficiency of other specified B group vitamins 05/16/2019 Deviated septum 11/15/2023 Dizziness and giddiness 02/05/2019 Dry mouth 11/15/2023 Dysfunction of eustachian tube 06/12/2023 Dyspnea 06/12/2023 Elevated blood pressure reading 11/15/2023 Encounter for supervision of normal , unspecified, first trimester ([facility]) 05/29/2019 Environmental allergies 11/15/2023 Fatigue 12/29/2016 First degree perineal laceration during delivery ([facility]) 01/16/2020 Frequency of micturition 02/19/2019 Genitourinary symptoms 08/19/2021 Gestational diabetes mellitus (GDM), antepartum ([facility]) 01/26/2022 H/O: hypothyroidism 11/15/2023 Hematochezia [...] anemia 01/16/2020 Irregular uterine bleeding 11/15/2023 problem ([facility]) 06/12/2023 Less than 8 weeks gestation of ([facility]) 06/05/2019 intermediate (current) use of 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/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 02/05/2019 Migraine without aura and without status migrainosus, not intractable 09/12/2017 Morbid obesity ([facility]) 11/15/2023 Muscle fasciculation 08/19/2021 Nasal polyps 11/15/2023 Non-smoker 11/15/2023 NEETA (obstructive sleep apnea) 11/15/2023 Other acute postprocedural pain 02/03/2019 Other general symptoms and signs 10/28/2019 Other immediate hemorrhage ([facility]) 01/16/2020 Other specified noninflammatory disorders of vagina 02/21/2019 Pain in joint 12/29/2016 Palpitations 08/26/2019 Paresthesia of bilateral legs 11/15/2023 Pelvic and perineal pain 02/01/2019 Personal history of urinary (tract) infections 01/16/2020 Pre-diabetes 11/15/2023 Primary hypercoagulable state ([facility]) 08/01/2022 Pruritus, unspecified 01/02/2020 Psychogenic hyperventilation 06/12/2023 Raised antibody titer 09/25/2017 Right lower quadrant pain 11/15/2023 Right otitis externa 11/15/2023 Salivary gland swelling 11/15/2023 Single live ([facility]) 01/15/2020 Snoring 11/15/2023 Speech and [...] drainage of cyst WISDOM TOOTH EXTRACTION 2007 [place] teeth REVIEW OF SYSTEMS Review of Systems: [...] nursing note reviewed. Exam conducted with a coastal tug mate present. Vitals: Estimated body mass index is 34.14 kg/m?? as calculated from the following: Height as of 11/19/23: 5' 6 . Weight as of this encounter: 211 lb 8 oz. BP: 118/72 Patient's last menstrual period was 07/28/2024. Assessment/Plan ICD-10-CM 1. Third trimester ([facility]) Z34.93 POCT urinalysis dipstick manually resulted 2. 34 weeks gestation of ([facility]) Z3A.34 3. Anemia complicating childbirth ([facility]) O99.02 4. Anticoagulant long-term use Z79.01 5. Antiphospholipid antibody positive R76.0 6. Antiphospholipid antibody syndrome ([facility]) D68.61 7. Thyroid disease E07.9 Assessment/Plan Return [...] Plan of Treatment DateTypeDepartmentCare Team (Latest Contact Info)Tcxlghxkvhd23/10/2025 1:40 PM ESTRoutine [facility] COLV[facility] [address] [place] [address] Wilton Herrmann DO [address] [place], [place] [phone] 04/15/2025 1:50 PM ESTRoutine [facility] COLVIN [address] [place] [address] Wilton Herrmann, [address] [place] [place] [phone] documented as of this encounter Procedures Procedure NamePriorityDate/TimeAssociated DiagnosisCommentsPOCT URINALYSIS RYGHGLBXJcfpjfn84/26/2025 11:31 AM EST Third trimester ([facility]) documented [...] Date Evans Casas MD [address] [place] [address] PCP - GeneralFamily Medicine11/07/23documented as of this encounter
--- OUTSIDE RECORDS SUMMARY | 2025-03-30 18:19 | XMS_ITS | Encounter Summary ---
Author Organization [facility] Address [address] [place] [address] Care Team Providers Care Primary Special Education Teacher Name Role Phone Evans Casas MD Primary Care Provider [phone] Encounter Details DateTypeDepartmentCare Team (Latest Contact Info)Ljnefbkrdry91/20/2025linisync Result Encounter [facility] External Department Unsolicited Mya Herrmann DO [address], [facility] Social History Tobacco UseTypesPacks/DayYears UsedDateSmoking Tobacco: NeverSmokeless Tobacco: NeverAlcohol UseStandard Drinks/WeekCommentsNever0 (1 standard drink = 0.6 oz pure alcohol)PHQ-2AnswerDate RecordedPatient Health Questionnaire-2 Score0 03/03/2025Estimated Date of BtqmfrtmIlxkcovyTyf62/05/2026Based on last menstrual period of 07/28/2024Sex and Gender InformationValueDate RecordedSex Assigned at BirthNot on fileLegal IdjUzqree33/15/2023 11:19 PM EDTGender IdentityNot on fileSexual OrientationNot on filedocumented as of this encounter Plan of Treatment DateTypeDepartmentCare Team (Latest Contact Info)Allgmtjlzwi12/10/2025 1:40 PM ESTRoutine [facility] [address] [place] [phone] Mya Herrmann DO [address] [place] [address] 04/15/2025 1:50 PM ESTRoutine [facility] [address] [facility] [place] [phone] Mya Herrmann, DO [address] [facility] [place] [address] documented as of this encounter Procedures Procedure NamePriorityDate/TimeAssociated DiagnosisCommentsUS OB BPP W NON-YYFBEH5603/19/2025 11:51 PM EST documented in this encounter Results * US OB BPP W NON-STRESS (03/19/2025 11:51 PM EST)Anatomical Region LateralityModalityOtherSpecimen (Source)Anatomical Location / Laterality Collection Method / VolumeCollection TimeReceived Time03/19/2025 11:51 PM EST Narrative 03/19/2025 11:53 PM EST [facility] ?[address] ? [place] [address] ? Ultrasound Report ? Signed ? Patient: SANNA RENDON ?MR#: [id number] ?? : 1985 ?Acct:[id number] ?? Age/Sex: 39 / F ?ADM Date: 03/19/25 ?? Loc: US ? Attending Dr: Mya Herrmann D.O. ? Ordering Physician: Mya Herrmann D.O. ?? Date of Service: 03/19/25 ?? Procedure(s): US OB BPP w non-stress ?? Accession Number(s): [id number] ? cc: Mya Herrmann D.O.; Physician,Non-Staff M.D. ? [facility] ? [address] ? [place] [address] ? Patient Name: ?? SANNA RENDON ? MRN: [id number] ? date: 1985 ?Sex: F ?? Assigned Patient Location: [facility] ?? Current Patient Location: ? Accession/Order Number: [id number] ?? Exam Date: 03/19/2025 ??19:20 ?Report Date: [...] M.D. ??03/19/2025 11:51 PM ? Dictation Location: [place] [address] ? Electronically authenticated by: [id number] ??Y ?? Date: 03/19/2025 ??23:51 ? Dictated By: ?Robert Beltrán D.O. ? Signed By: ?03/19/25 2353 ? DD/ 2351 ? TD/TT: ? Shearing Machine Tender: Procedure Note Radiology, Radiologist, - 03/19/2025 [place] [address] Ultrasound Report Signed Patient: SANNA RENDON [facility]#: [id number] : 1985Acct:[id number] Age/Sex: 39 / FADM Date: 03/19/25 Loc: US Attending Dr: Mya Herrmann D.O. Ordering Physician: Mya Herrmann D.O. Date of Service: 03/19/25 Procedure(s): US OB BPP w non-stress Accession Number(s): [id number] cc: Mya Herrmann D.O.; Physician,Non-Staff M.DLazara The [address] [address] Patient Name: SANNA RENDON MRN: [id number] date: 1985 Sex: F Assigned Patient Location: [facility] Current Patient Location: Accession/Order Number: [id number] Exam Date: 03/19/2025 19:20 Report Date: 03/19/2025 [...] Beltrán M.D. 03/19/2025 11:51 PM Dictation Location: [place] [address] Electronically authenticated by: [id number] Y Date: 3:51 Dictated By: Robert Beltrán D.O. Signed By:03/19/252352 DD/ 50 TD/TT: Shearing Machine Tender: Authorizing ProviderResult TypeResult StatusCorey Montez DOCLINISYNC IMAGINGFinal Result documented in this encounter Visit Diagnoses Not on filedocumented in this encounter Care Teams Team MemberRelationshipSpecialtyStart DateEnd Date Evans Casas MD [address] [place] [address] PCP - GeneralFamily Medicine11/07/23documented as of this encounter
--- OUTSIDE RECORDS SUMMARY | 2025-03-30 18:19 | XMS_ITS | Encounter Summary ---
Author Organization [facility] Address [address] [facility] [place] [address] Care Team Providers Care Care Professionals Name Role Phone Evans Casas MD Primary Care Provider [phone] Encounter Details DateTypeDepartmentCare Team (Latest Contact Info)Ulwiepfmjil76/24/2025bstract NOMJaylan COLVIN [address] [place] [address] Wilton Herrmann DO [address] [place], [facility] Social History Tobacco UseTypesPacks/DayYears UsedDateSmoking Tobacco: NeverSmokeless Tobacco: NeverAlcohol UseStandard Drinks/WeekCommentsNever0 (1 standard drink = 0.6 oz pure alcohol)PHQ-2AnswerDate RecordedPatient Health Questionnaire-2 Score0 03/03/2025Estimated Date of WanzkmibWhqkyrucIux12/05/2026ased on last menstrual period of 07/28/2024Sex and Gender InformationValueDate RecordedSex Assigned at BirthNot on fileLegal WxjIrvldz18/15/2023 11:19 PM EDTGender IdentityNot on fileSexual OrientationNot on filedocumented as of this encounter Plan of Treatment DateTypeDepartmentCare Team (Latest Contact Info)Dlhcncayztt36/10/2025 1:40 PM ESTRoutine NOMJaylan COLVIN [address] [place] [facility] [place] [address] Wilton Herrmann [address] [facility] [place] [address] 04/15/2025 1:50 PM ESTRoutine [facility] [facility] [address] [facility] [place] [phone] Wilton Herrmann, [address] [facility] [place] [address] documented as of this encounter Visit Diagnoses Not on filedocumented in this encounter Care Teams Team MemberRelationshipSpecialtyStart DateEnd Date Evans Casas MD [address] [place] [address] PCP - GeneralFamily Medicine11/07/23documented as of this encounter
--- OUTSIDE RECORDS SUMMARY | 2025-03-30 18:19 | XMS_ITS | Clinical Summary ---
Author Organization [facility] Address [address] [place] [address] Care Team Providers Care Reference Library Assistant Name Role Phone Evans Casas MD Primary Care Provider [phone] Allergies Active AllergyReactionsCriticalityNoted DateCommentsCiprofloxacinGI intolerance 04/19/2023iprofloxacin-Fluocinolone Pf05/19/2019 Other Reaction(s): Other: See Comments Dizziness, weakness sweating Bsudqvl3009/10/2017 Other Reaction(s): GI Disturbance, GI Upset Diarrhea Diarrhea Lactose Intolerance (Gi)11/15/2023 Other Reaction(s): Illness Htwzpayvgir00/06/2021 Other Reaction(s): Other (See Comments) XjmjeHzmejShj64/26/2018 seasonal Other Reaction(s): Other (See Comments) Medications MedicationSigDispense QuantityRefillsLast FilledStart DateEnd DateStatus Multiple Vitamin (Multi-Vitamin) tablet Take 1 tablet by mouth in the morning.Active levothyroxine (Synthroid) 25 MCG tablet Indications:Abnormal TSHTake 1 tablet (25 mcg) by mouth in the morning. Take before meals. 30 tablet 110//112144//6Active enoxaparin (Lovenox) 40 MG/0.4ML injection 1 (one) time each day at the same timeActive docusate sodium (Colace) 50 MG capsule Take 100 mg by mouth in the morning and 100 mg before bedtime.Active polyethylene glycol, PEG, 3350 (Glycolax) 17 GM/SCOOP powder Take 17 g by mouth DailyActive Alcohol Swabs (Alcohol Prep Pad) 70 % pads Indications:Second trimester (HHS-HCC),13 weeks gestation of ([facility]),Multigravida of advanced maternal age in second trimester ([facility]), Gestational diabetes mellitus (GDM), antepartum, gestational diabetes method of control unspecified([facility]),Elevated glucose tolerance testApply 1 Pad topically Daily Use four times daily to check FSBS. 150 each 5Active Blood Glucose Monitoring Suppl (D-EQUISO Glucometer) w/Device kit Indications:Second trimester ([facility]),13 weeks gestation of ([facility]),Multigravida of advanced maternal age in second trimester ([facility]), Gestational diabetes mellitus (GDM), antepartum, gestational diabetes method of control unspecified([facility]),Elevated glucose tolerance test1 kit Daily Use four [...] (GDM), antepartum, gestational diabetes method of control unspecified([facility])Take 3 tablets (1,500 mg) by mouth in the evening. Take with meals Do not crush, chew, or split. 90 tablet 5Active Active Problems ProblemNoted DateDiagnosed DateH/O loss01/05/2025Multigravida of advanced maternal age in second trimester ([facility])01/05/2025Thyroid lfddlhc8101/05/2025 Referred otalgia of right ear11/19/2023LPRD (laryngopharyngeal reflux disease) 11/19/2023cute on chronic vesicular eczema of hands and feet11/15/2023lood pressure elevated without history of HTN11/15/2023MI 37.0-37.9, adult11/15/2023 Cold /18/2024eviated knaqfl7411/15/2023ry mouth11/15/2023Elevated blood pressure kluikda8811/15/2023Environmental zkckjaoon77/18/2024H/O: mlykzuarvxsrcw91/18/2024History of nsqznm0311/15/2023History of cerebrovascular /18/2024 Overview (11/15/2023): reported by pt - related to antiphospholipid syndrome History of COVID-19011/15/2023History of gestational nqyllnkr91/18/2024History of kidney nczrvt4711/15/2023Hx of iron deficiency bpnmxf1011/15/2023Immunization not carried out because of patient lgvfcign44/18/2024Iron zeizsukvll22/18/2024 Irregular uterine nccpgxta18/18/2024Morbid fjhqkrd3311/15/2023Nasal polyps 11/15/2023Non-tnbwwz4511/15/2023OSA (obstructive sleep apnea)11/15/2023aresthesia of bilateral legs11/15/2023re-ufucoqvm88/18/2024Right lower quadrant pain 4Right otitis xzpcznd0611/15/2023Salivary gland eljljoaa47/18/2024Snoring 11/15/2023bdominal pain4Acute bronchitis due to ntutzsxlk95/13/2024 Tbloena7606/12/2023ysfunction of eustachian tube06/12/20231210Rrvkhus83/13/2024 Wtglfdmnmtuh45/13/2024Inhalation xuaeem3406/12/2023Lactation problem ([facility]) 4Psychogenic ocydesiaflinecgm53/13/2024Suspected severe acute respiratory syndrome coronavirus 2 (SARS-CoV-2) dmlywyqfx02/13/2024Hypoglycemia 06/12/2023rimary hypercoagulable state ([facility])08/01/2022estational diabetes mellitus (GDM), antepartum ([facility])01/26/2022Genitourinary lukuxstd35/22/2022 Muscle vleetyyqxcysj43/22/2022nticoagulant long-term use02/22/2020 Cerebrovascular accident (CVA) due to stenosis of middle cerebral artery 02/22/2020Anemia complicating childbirth ([facility])01/16/2020First degree perineal laceration during delivery ([facility])01/16/2020Acute posthemorrhagic nmyrod4901/16/2020Other immediate hemorrhage ([facility])01/16/2020 Personal history of urinary (tract) wnmqfrycqr48/18/2020Single live ([facility])01/15/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 ([facility])01/08/2020Pruritus, hznmmiolibc93/04/2020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)12/30/201932 weeks gestation of ([facility])11/28/2019Thrombocytopenia, wnibjaqqflb17/23/2020Other general symptoms and signs10/28/2019Urinary tract zqqjqzmez28/18/2020 Idgbofgkniho36/28/2020SVT (supraventricular tachycardia)08/26/2019 Antiphospholipid antibody syndrome ([facility])07/07/2019Other bacterial infections of unspecified site06/27/2019Less than 8 weeks gestation of ([facility]) 06/05/2019Encounter for supervision of normal , unspecified, first trimester ([facility])05/29/2019Cerebral infarction, gdgbtflmtof14/17/2020 Deficiency of other specified B group skdskodf93/17/1495Vtljtoltuuip38/17/2020 Unspecified condition associated with female genital organs and menstrual cycle 05/09/2019Other specified noninflammatory disorders of obnbwz7802/21/2019Frequency of evxnnmxzals46/23/2019Unspecified ovarian cyst, right side02/06/2019 Qgzysdwoaja74/09/2019Coagulation defect, unspecified ([facility])02/05/2019 Dizziness and mzieorjtt58/09/2019Long term (current) use of 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/izamnvhtcuydl64/09/2019Other acute postprocedural pain02/03/2019 Pelvic and perineal pain02/01/2019Syncope and jneftzwh20/04/2019Raised antibody titer09/25/2017Migraine without aura and without status migrainosus, not bfglzurxvvz40/16/2018Antiphospholipid antibody tldfypmw43/14/2018Fatigue 12/29/2016Idiopathic progressive jvmhmmymmb33/01/2017Pain in joint12/29/2016 Estimated Date of YelrqhimKiydfjrhMma68/05/2026Based on last menstrual period of 07/28/2024 Encounters DateTypeDepartmentCare WnntQpefhusqysb71/26/2025 11:10 AM ESTRoutine [facility] [address] [place] [address] Mya Herrmann, DO Third trimester (HHS-HCC); 34 weeks gestation of (HHS-HCC); Anemia complicating childbirth (HHS-HCC); Anticoagulant long-term use; Antiphospholipid antibody positive; Antiphospholipid antibody syndrome ([facility]); Thyroid vugijio1103/25/2025linisync Result Encounter [facility] External Department Unsolicited Mya Herrmann, DO 03/25/2025amboo flowsheet [facility] [address] [place] [address] [place] [address] Mya Herrmann, DO 5Abstract [facility] [address] [place] [address] [place] [address] Mya Herrmann, DO 5Clinisync Result Encounter [facility] External Department Unsolicited Mya Herrmann, DO 03/19/2025linisync Result Encounter [facility] External Department Unsolicited Mya Herrmann, DO 5Clinisync Result Encounter [facility] External Department Unsolicited Mya Herrmann, DO 03/10/2025 9:50 AM ESTRoutine [facility] [address] [place] [address] Mya Herrmann, DO 32 weeks gestation of (HHS-HCC); Third trimester (HHS-HCC); Anemia complicating childbirth ([facility]); Anticoagulant long-term use; Antiphospholipid antibody positive; Blood pressure elevated without history of HTN; Coagulation defect, unspecified (HHS-HCC); Antiphospholipid antibody syndrome ([facility]); Thyroid disease; Multigravida of advanced maternal age in third trimester (HHS-HCC)03/10/2025 Bamboo flowsheet [facility] [place] [facility] [address] [place] [address] Mya Herrmann, DO 03/06/2025linisync Result Encounter [facility] External Department Unsolicited Mya Herrmann, DO 03/04/2025bstract [facility] [address] [place] [address] Mya Herrmann, DO 03/03/2025Patient Outreach [facility] [address] [place] [address] Petra Whitmore LPN 02/27/2025linisync Result Encounter [facility] External Department Unsolicited Mya Herrmann, DO 02/23/2025 9:00 AM EDTRoutine [facility] [address] [place] [address] Mya Herrmann, DO Third trimester ([facility]); 30 weeks gestation of ([facility])02/23/2025amboo flowsheet [facility] [place] [facility] [address] [place] [address] Mya Herrmann, DO 02/20/2025linisync Result Encounter [facility] External Department Unsolicited Mya Herrmann, DO 02/20/2025linisync Result Encounter [facility] External Department Unsolicited Mya Herrmann, DO 02/17/2025linisync Result Encounter [facility] External Department Unsolicited Mya Herrmann, DO 02/17/2025bstract [facility] [address] [place] [address] Mya Herrmann, DO 02/09/2025 10:30 AM EDTRoutine [facility] [address] [place] [address] Mya Herrmann, DO Third trimester ([facility]); 28 weeks gestation of ([facility]); Anemia complicating childbirth ([facility]); Anticoagulant long-term use; Antiphospholipid antibody positive; Blood pressure elevated without history of HTN; Coagulation defect, unspecified ([facility])02/09/2025bstract [facility] [place] [facility] [address] [place] [address] Mya Herrmann DO 02/03/2025[facility] [address] [place] [address] Petra Whitmore, CLIMATE CHANGE RISK ASSESSOR 01/21/2025Telephone [facility] [address] [place] [address] Celia Keith NP 01/19/2025 9:00 AM EDTRoutine [facility] [address] [place] [address] Mya Herrmann, Second trimester ([facility]); 25 weeks gestation of ([facility]); Gestational diabetes mellitus (GDM), antepartum, gestational diabetes method of control unspecified([facility]); Anticoagulant long-term use; Antiphospholipid antibody positive; Antiphospholipid antibody syndrome ([facility])01/19/2025bstract [facility] [place] [facility] [address] [place] [address] Mya Herrmann DO 01/15/2025Telephone [facility] [address] [place] [address] [place] [address] Lala Hess MA 01/06/2025[facility]reach [facility] [address] [place] [address] Petra Whitmore, CLIMATE CHANGE RISK ASSESSOR 01/05/2025 2:40 PM EDTRoutine [facility] [address] [place] [address] Mya Herrmann DO Second trimester ([facility]); 23 weeks gestation of ([facility]); Thyroid disease ; Gestational diabetes mellitus (GDM), antepartum, gestational diabetes method of control unspecified([facility]); Multigravida of advanced maternal age in second trimester ([facility]); H/O loss; Lightheaded; Pfszfwsnk82/08/2025Bamboo flowsheet [facility] [address] [place] [address] [place] [address] Mya Herrmann DO from Last 3 Months Family History Medical HistoryRelationNameCommentsCerebrovascular AccidentFatherDiabetesFather Heart problemsMaternal GrandfatherMental illnessMaternal GrandmotherCancer Paternal GrandfatherDiabetesPaternal GrandfatherCancerPaternal Grandmother DiabetesPaternal GrandmotherDiabetesSisterRelationNameStatusCommentsFather Maternal GrandfatherMaternal GrandmotherPaternal GrandfatherPaternal Grandmother Sister Social History Tobacco UseTypesPacks/DayYears UsedDateSmoking Tobacco: NeverSmokeless Tobacco: Never Tobacco Cessation:Counseling Given: Not Answered Alcohol UseStandard Drinks/WeekCommentsNever0 (1 standard drink = 0.6 oz pure alcohol)PHQ-2AnswerDate RecordedPatient Health Questionnaire-2 Qxalm71505/03/2024 Estimated Date of EaptqtpzWzqcrbehSql28/05/2026ased on last menstrual period of 07/28/2024Sex and Gender InformationValueDate RecordedSex Assigned at BirthNot on fileLegal UjuAbkfls87/15/2023 11:19 PM EDTGender IdentityNot on file Sexual OrientationNot on file Last Filed Vital Signs Vital SignReadingTime TakenCommentsBlood Vfdzikyq648/7203/25/2025 11:25 AM EST Pulse--Temperature--Respiratory Rate--Oxygen Saturation--Inhaled Oxygen Concentration--Zrhfob95.9 kg (211 lb 8 oz)03/25/2025 11:25 AM BPWPilaqn143.6 cm (5' 6 )11/19/2023 1:48 PM EDTBody Mass Index34.14011/19/2023 1:48 PM EDT Plan of Treatment DateTypeDepartmentCare Team (Latest Contact Info)Klriklvpklm32/10/2025 1:40 PM ESTRoutine [facility] [address] [place] [address] Mya Herrmann, DO [address] [place] [address] 04/15/2025 1:50 PM ESTRoutine [facility] [address] [place] [address] Mya Herrmann, DO [address] [place] [address] Health MaintenanceDue DateLast DoneCommentsHPV/Twecfg4910/22/2015COVID-19 Vaccine ( season)2024Influenza Vaccine (#1)5Cervical Cancer Jakvygdbe48/18/2025Pap Smear512Pneumococcal Vaccine: Pediatrics (0 to 5 Years) and At-Risk Patients (6 to 64 Years)Aged OutNo longer eligible based on patient's age to complete this topic Procedures Procedure NamePriorityDate/TimeAssociated DiagnosisCommentsUS OB BPP W NON-JRGPSY4803/25/2025 8:58 PM EST POCT URINALYSIS GKRGWSOGNinfglp63/26/2025 11:31 AM EST Third trimester ([facility]) US OB BPP W NON-NUVYHP7703/19/2025 11:51 PM EST US OB DQPDNN5903/19/2025 11:51 PM EST OB BPP W NON-MHHYRY5103/13/2025 7:55 AM EST POCT URINALYSIS NGULFLRLHoiyyse64/11/2025 10:06 AM EST 32 weeks gestation of ([facility]) Third trimester ([facility]) US OB BPP W NON-PMOMYU8303/06/2025 8:10 AM EST US OB BPP W NON-RTAIOM2002/27/2025 10:53 AM EDT POCT URINALYSIS KCAXDJJEGqstqct17/27/2025 9:38 AM EDT 30 weeks gestation of ([facility]) US OB BNTRDM3702/20/2025 8:37 AM EDT US OB BPP W NON-LZDNXJ4002/20/2025 8:37 AM EDT ALL THYROID STIM EWFNSHFSaiogzl30/21/2025 1:31 PM EDT ALL CBC WITH AUTO WJBSDislejy31/21/2025 1:31 PM EDT POCT URINALYSIS PHMVPFQWZiublew92/13/2025 10:55 AM EDT 28 weeks gestation of ([facility]) POCT URINALYSIS VDEXOCQTWwbiriu25/22/2025 9:33 AM EDT Second trimester ([facility]) POCT URINALYSIS GVXIPSJDQwqebdu44/08/2025 3:25 PM EDT Second trimester ([facility]) PAP OZYZNHkrqwie28/18/2022 12:00 AM EDTfrom Last 3 Months or Most Recently Relevant to Health Maintenance Results * US OB BPP W NON-STRESS (03/25/2025 8:58 PM EST) Only the most recent of6 resultswithin the time period is included. Anatomical RegionLateralityModalityOtherSpecimen (Source)Anatomical Location / LateralityCollection Method / VolumeCollection TimeReceived Time03/25/2025 8:58 PM EST Narrative 03/25/2025 9:00 PM EST [facility] ?[address] ? [place] [address] ? Ultrasound Report ? Signed ? Patient: JUSTICE,MADHU S ?MR#: [id number] ?? : 1985 ?Acct:[id number] ?? Age/Sex: 39 / F ?ADM Date: 11/26/25 ?? Loc: US ? Attending Dr: Mya Herrmann D.O. ? Ordering Physician: Mya Herrmann D.O. ?? Date of Service: 03/25/25 ?? Procedure(s): US OB BPP w non-stress ?? Accession Number(s): [id number] ? cc: Mya Herrmann D.O.; Physician,Non-Staff M.DLazara ? [facility] ? [address] ? [place] [address] ? Patient Name: ?? MADHU RENDON ? MRN: [facility]:[id number] ? date: 1985 ?Sex: F ?? Assigned Patient Location: [facility] ?? Current Patient Location: ? Accession/Order Number: [id number] ?? Exam Date: 03/25/2025 ??19:22 ?Report Date: 03/25/2025 ??20:58 ? At the request of: ?? MYA ??MONTEZ ??DO ? Procedure: ??US OB BPP w non-stress ? Ultrasound biophysical profile ? INDICATION: Third trimester ? COMPARISON: 03/19/2025 ? FINDINGS AND IMPRESSION: Fetus in breech presentation. ?? heart rate 130 ?? beats per minutes. ??SARAHI measuring 11.1 cm. ??Biophysical profile 12/05. ? Impression dictated by: Mert Estrada M.D. ??03/25/2025 8:58 PM ? Dictation Location: [facility]--[facility] ? Electronically authenticated by: [id number] ??Y ?? Date: 03/25/2025 ??20:58 ? Dictated By: ?Mert Estrada M.D. ? Signed By: ?03/25/252099 ? DD/ 57 ? TD/TT: ? Shoe Repair Supervisor: Procedure Note Radiology, Radiologist, MD - 03/25/2025 [place] [address] Ultrasound Report Signed Patient: MADHU RENDON [facility]#: [id number] : 1985Acct:[id number] Age/Sex: 39 / FADM Date: 03/25/25 Loc: US Attending Dr: Mya Herrmann D.O. Ordering Physician: Mya Herrmann D.O. Date of Service: 03/25/25 Procedure(s): US OB BPP w non-stress Accession Number(s): [id number] cc: Mya Herrmann D.O.; Physician,Non-Staff MGiovanni [place] [address] Patient Name: MADHU RENDON MRN: [facility]:[id number] date: 1985 Sex: F Assigned Patient Location: [facility] Current Patient Location: Accession/Order Number: [id number] Exam Date: 03/25/2025 19:22 Report Date: 03/25/2025 20:58 At the request of: MYA HERRMANN DO Procedure: US OB BPP w non-stress Ultrasound biophysical profile INDICATION: Third trimester COMPARISON: 03/19/2025 FINDINGS AND IMPRESSION: Fetus in breech presentation. heart xtnh533 beats per minutes. SARAHI measuring 11.1 cm. Biophysical profile 12/05. Impression dictated by: Mert Estrada M.D. 03/25/2025 8:58 PM Dictation Location: [place] [address] Electronically authenticated by: [id number] Y Date: 0:58 Dictated By: Mert Estrada M.D. Signed By:03/25/252099 DD/ 57 TD/TT: Shoe Repair Supervisor: Authorizing ProviderResult TypeResult StatusCorey Montez DOCLINISYNC IMAGINGFinal Result * POCT urinalysis dipstick manually resulted (03/25/2025 [...] Location / LateralityCollection Method / VolumeCollection TimeReceived ShkaJyehh80/26/2025 11:31 AM EST Narrative Authorizing ProviderResult TypeResult StatusCorey Montez DOPOINT OF CARE TEST ENTER/EDIT ORDERABLESFinal Result * US OB GROWTH (03/19/2025 11:51 PM EST) Only the most recent of2 resultswithin the time period is included. Anatomical RegionLateralityModalityOtherSpecimen (Source)Anatomical Location / LateralityCollection Method / VolumeCollection TimeReceived Time03/19/2025 11:51 PM EST Narrative 03/19/2025 11:53 PM EST [facility] ?[address] ? [place] [address] ? Ultrasound Report ? Signed ? Patient: MADHU RENDON ?MR#: [id number] ?? : 1985 ?Acct:[id number] ?? Age/Sex: 39 / F ?ADM Date: 03/19/25 ?? Loc: US ? Attending Dr: Mya Herrmann D.O. ? Ordering Physician: Mya Herrmann D.O. ?? Date of Service: 03/19/25 ?? Procedure(s): US OB growth ?? Accession Number(s): [id number] ? cc: Mya Herrmann D.O.; Physician,Non-Staff M.D. ? [facility] ? [address] ? [place] [address] ? Patient Name: ?? MADHU RENDON ? MRN: [facility]:[id number] ? date: 1985 ?Sex: F ?? Assigned Patient Location: US ?? Current Patient Location: ? Accession/Order Number: [id number] ?? Exam Date: 03/19/2025 ??19:20 ?Report Date: [...] M.D. ??03/19/2025 11:51 PM ? Dictation Location: [place] [address] ? Electronically authenticated by: [id number] ??Y ?? Date: 03/19/2025 ??23:51 ? Dictated By: ?Robert Beltrán D.O. ? Signed By: ?03/19/25 2353 ? DD/ 2351 ? TD/TT: ? Shoe Repair Supervisor: Procedure Note Radiology, Radiologist, - 03/19/2025 The [place] [id number] Ultrasound Report Signed Patient: MADHU RENDON [facility]#: [id number] : 1985Acct:[id number] Age/Sex: 39 / FADM Date: 03/19/25 Loc: US Attending Dr: Mya Herrmann D.O. Ordering Physician: Mya Herrmann D.O. Date of Service: 03/19/25 Procedure(s): US OB growth Accession Number(s): [id number] cc: Mya Herrmann D.O.; Physician,Non-Staff M.Ashvin [address] [address] Patient Name: MADHU RENDON MRN: [facility]:[id number] date: 1985 Sex: F Assigned Patient Location: Current Patient Location: Accession/Order Number: [id number] Exam Date: 03/19/2025 19:20 Report Date: 03/19/2025 [...] Beltrán M.D. 03/19/2025 11:51 PM Dictation Location: [place] [address] Electronically authenticated by: [id number] Y Date: 3:51 Dictated By: Robert Beltrán D.O. Signed By:03/19/252352 DD/ 50 TD/TT: Shoe Repair Supervisor: Authorizing ProviderResult TypeResult StatusCorey Montez [...] - 35.2 g/dLTBHTBH RDW13.111.0 - 15.0 %TBHTBH EBC197 150 - 450 10 3/uLTBHTBH MPV9.79.5 - [...] MemberRelationshipSpecialtyStart DateEnd Date Evans Casas MD [address] [place] [address] PCP - GeneralFamily Medicine11/07/23
--- OUTSIDE RECORDS SUMMARY | 2025-03-30 18:19 | XMS_ITS | Encounter Summary ---
Author Organization [facility] Address [address] [facility] [facility] [place] [address] Care Team Providers Care Proofreader Name Role Phone Evans Casas MD Primary Care Provider [phone] Encounter Details DateTypeDepartmentCare Team (Latest Contact Info)Hkybjqfkgnu59/26/2025linisync Result Encounter [facility] External Department Unsolicited Mya Herrmann DO [address] [place], [facility]11 Social History Tobacco UseTypesPacks/DayYears UsedDateSmoking Tobacco: NeverSmokeless Tobacco: NeverAlcohol UseStandard Drinks/WeekCommentsNever0 (1 standard drink = 0.6 oz pure alcohol)PHQ-2AnswerDate RecordedPatient Health Questionnaire-2 Score0 03/03/2025Estimated Date of LjdacvhhJnrwdyyhHjf27/05/2026Based on last menstrual period of 07/28/2024Sex and Gender InformationValueDate RecordedSex Assigned at BirthNot on fileLegal ChlCakkry51/15/2023 11:19 PM EDTGender IdentityNot on fileSexual OrientationNot on filedocumented as of this encounter Plan of Treatment DateTypeDepartmentCare Team (Latest Contact Info)Qezpatvclut92/10/2025 1:40 PM ESTRoutine [facility] [address] [place] [phone] Mya Herrmann DO [address] [place] [address] 04/15/2025 1:50 PM ESTRoutine [facility] [place] [facility] [address] [facility] [place] [phone] Mya Herrmann, DO [address] [facility] [place] [address] documented as of this encounter Procedures Procedure NamePriorityDate/TimeAssociated DiagnosisCommentsUS OB BPP W NON-KNEQEY1603/25/2025 8:58 PM EST documented in this encounter Results * US OB BPP W NON-STRESS (03/25/2025 8:58 PM EST)Anatomical Region LateralityModalityOtherSpecimen (Source)Anatomical Location / Laterality Collection Method / VolumeCollection TimeReceived Time03/25/2025 8:58 PM EST Narrative 03/25/2025 9:00 PM EST [facility] ?[address] ? [place] [address] ? Ultrasound Report ? Signed ? Patient: MADHU RENDON ?MR#: [id number] ?? : 1985 ?Acct:[id number] ?? Age/Sex: 39 / F ?ADM Date: 03/25/25 ?? Loc: US ? Attending Dr: Mya Herrmann D.O. ? Ordering Physician: Mya Herrmann D.O. ?? Date of Service: 03/25/25 ?? Procedure(s): US OB BPP w non-stress ?? Accession Number(s): [id number] ? cc: Mya Herrmann D.O.; Physician,Non-Staff M.D. ? [facility] ? [address] ? [place] [address] ? Patient Name: ?? MADHU RENDON ? MRN: [id number] ? date: 1985 ?Sex: F ?? Assigned Patient Location: [facility]BC ?? Current Patient Location: ? Accession/Order Number: [id number] ?? Exam Date: 03/25/2025 ??19:22 ?Report Date: [...] M.D. ??03/25/2025 8:58 PM ? Dictation Location: RADIO-PC-29 ? Electronically authenticated by: [id number] ??Y ?? Date: 03/25/2025 ??20:58 ? Dictated By: ?Mert Estrada M.D. ? Signed By: ?03/25/ 2100 ? DD/ 57 ? TD/TT: ? Paste Worker: Procedure Note Radiology, Radiologist, - 03/25/2025 [place] [address] Ultrasound Report Signed Patient: MADHU RENDON SMR#: [id number] : 1985Acct:[id number] Age/Sex: 39 / FADM Date: 03/25/25 Loc: US Attending Dr: Mya Herrmann D.O. Ordering Physician: Mya Herrmann D.O. Date of Service: 03/25/25 Procedure(s): US OB BPP w non-stress Accession Number(s): [id number] cc: Mya Herrmann D.O.; Physician,Non-Staff M.DLazara The [address] [address] Patient Name: MADHU RENDON MRN: [id number] date: 1985 Sex: F Assigned Patient Location: [facility] Current Patient Location: Accession/Order Number: [id number] Exam Date: 03/25/2025 19:22 Report Date: 03/25/2025 20:58 At the request of: MYA HERRMANN DO Procedure: US OB BPP w non-stress Ultrasound biophysical profile INDICATION: Third trimester COMPARISON: 03/19/2025 FINDINGS AND IMPRESSION: Fetus in breech presentation. heart cmhf109 beats per minutes. SARAHI measuring 11.1 cm. Biophysical profile 12/05. Impression dictated by: Mert Estrada M.D. 03/25/2025 8:58 PM Dictation Location: [place] [address] Electronically authenticated by: [id number] Y Date: 0:58 Dictated By: Mert Estrada M.D. Signed By:03/25/252099 DD/ 57 TD/TT: Paste Worker: Authorizing ProviderResult TypeResult StatusCorey Montez DOCLINISYNC IMAGINGFinal Result documented in this encounter Visit Diagnoses Not on filedocumented in this encounter Care Teams Team MemberRelationshipSpecialtyStart DateEnd Date Evans Casas MD [address] [place] [address] PCP - GeneralFamily Medicine11/07/23documented as of this encounter
--- OUTSIDE RECORDS SUMMARY | 2025-03-30 18:19 | XMS_ITS | Clinical Summary ---
Author Organization [employer] Address [facility] [address] [place] [address] Care Team Providers Care Greenhouse Assistant Name Role Phone Evans Casas DO Primary Care Provider Allergies Active AllergyReactionsCriticalityNoted DateCommentsCiprofloxacinDizziness 06/19/2019LactalbuminOther (See Comments)Low05/25/2017 Other reaction(s): GI Upset Crampy and gassy LactoseGI Vqnuciflxvl42/14/2018 Diarrhea Milk Containing Products (Dairy)Other (See Comments)Low05/25/2017 [...] in second trimester controlled on oral hypoglycemic drug12/17/20248838Iouvmz41/08/2025MA (advanced maternal age) multigravida 35+11/04/2024ntiphospholipid syndrome 11/04/20248569Mqfakboanto14/08/7920Lkizys82/08/2025ntiphospholipid syndrome complicating , ntejxogfei45/09/2020Estimated Date of Delivery OjnssdgnZcr36/05/2026Based on last menstrual period of 07/28/2024 Resolved Problems ProblemNoted DateDiagnosed DateResolved DateCerebral infarction, unspecified Migraine without aura and without status migrainosus, not ocxsipyuplg98 Encounters DateTypeDepartmentCare RmkuQctzmdaiwub20/18/2025 2:00 PM ESTTelemedicine [facility] Department of [address] [address] Sam Callahan MD MPH Antiphospholipid syndrome complicating , antepartum (Primary Dx); Antiphospholipid syndrome; History of CVA (cerebrovascular accident); Coordination of complex care; 33 weeks gestation of ydegqzbca42/18/2025Orders Only [facility] Department of [address] [address] Ref Prov, Not In System 03/17/20257422Khmrpa34/12/2025 9:45 AM ESTTelemedicine Maternal- Medicine at [address] [address] Sana Palma MD Khurshid, Nauman, MD Gestational diabetes mellitus (GDM) in second trimester controlled on oral hypoglycemic drug (Primary Dx); Antiphospholipid rkplokss16/12/5696Kxesbs36/07/6263Yhaxyl80/23/2025Orders Only [facility] Department of [address] [address] Ref Prov, Not In System 02/18/2025Orders Only [facility] Department of [address] [address] Ref Prov, Not In System 02/16/2025 1:45 PM EDTOffice Visit [facility] Department of [address] [address] Sam Callahan MD MPH Antiphospholipid syndrome (Primary Dx); Antiphospholipid syndrome complicating , antepartum; History of CVA (cerebrovascular accident); Coordination of complex care; 29 weeks gestation of kigkpwijl13/20/4215Gpmxha11/14/2025Telephone Maternal- Medicine at [facility] [address] [place] [address] nAnita Kendall LD 02/06/2025 2:00 PM EDTTelemedicine Maternal- Medicine at [facility] [address] [place] [address] Wilfrid Medina MD 27 weeks gestation of (Primary Dx); Multigravida of advanced maternal age in third trimester; Gestational diabetes mellitus (GDM) in second trimester controlled on oral hypoglycemic drug; Antiphospholipid syndrome complicating , antepartum; Antiphospholipid bgtffswe50/10/2473Phmrxp23/09/0158Yewxoi59/16/2025 10:00 AM EDT Telemedicine Maternal- Medicine at [facility] [address] [place] [address] Davida Smith, YONYC Gestational diabetes mellitus (GDM) in second trimester controlled on oral hypoglycemic drug (Primary Dx); Antiphospholipid syndrome; Other specified hypothyroidism; Antiphospholipid syndrome complicating , braumcvhdy57/16/2025Travel 01/09/2025Telephone Maternal- Medicine at [facility] [address] [place] [address] Wilfrid Medina MD 01/09/2025Orders Only Maternal- Medicine at [facility] [address] [place] [address] Wilfrid Medina MD Antiphospholipid syndrome (Primary Dx)01/07/2025Telephone Maternal- Medicine at [facility] [address] [place] [address] Jacque Pat RN 01/06/2025Telephone Maternal- Medicine at [facility] [address] [place] [address] Margo Khan RN 01/05/2025Orders Only Maternal- Medicine at [facility] [address] [place] [address] Jacque Pat RN Multigravida of advanced maternal age in second trimester (Primary Dx); Antiphospholipid syndrome complicating , antepartum; Gestational diabetes mellitus (GDM) in second trimester controlled on oral hypoglycemic drug; AMA (advanced maternal age) multigravida 35+, second trimester; Hypothyroidism, unspecified type; History of stroke; History of loss in prior , currently in second trimester; Hypothyroidism affecting in second trimester; Family history of autism; Bjhtqavsftfw08/08/2025Documentation Maternal- Medicine at [place] [address] [place] [address] Jacque Pat RN 01/01/2025 2:30 PM EDTTelemedicine Maternal Medicine [place] [address] [phone] Wilfrid Medina MD 22 weeks gestation of (Primary Dx); Antiphospholipid syndrome complicating , antepartum; History of stroke; History of loss in prior , currently in second trimester; Gestational diabetes mellitus (GDM) in second trimester controlled on oral hypoglycemic drug; Multigravida of advanced maternal age in second trimester; Hypothyroidism affecting in second trimester; Family history of autism; Vtvpzyvmewfc05/04/2025Orders Only [facility] [place] [address] [phone] Iraida Warren RN Multigravida of advanced maternal age in second trimester (Primary Dx); Antiphospholipid syndrome complicating , antepartum; Gestational diabetes mellitus (GDM) in second trimester controlled on oral hypoglycemic drug; Insulin controlled gestational diabetes mellitus (GDM) in second trimester; AMA (advanced maternal age) multigravida 35+, second trimester; Hypothyroidism, unspecified type01/01/2025Travelfrom Last 3 Months Family History Medical NtkiwieKfqkxsfpMstrRmhczcabZkkyrybnBnteqcP5JVMmbubbNxvsyuYcwyde illness Maternal GrandmotherCancerPaternal GrandfatherDiabetesPaternal OxckybfkapkR1RD CancerPaternal GrandmotherDiabetesPaternal CmjpgfkqwukN8YNTmfrclclJdqtqtL5JI RelationNameStatusCommentsFatherDeceasedMaternal GrandmotherPaternal Grandfather Paternal GrandmotherSister Social History Tobacco UseTypesPacks/DayYears UsedDateSmoking Tobacco: NeverSmokeless Tobacco: Never Tobacco Cessation:Counseling Given: Not Answered Alcohol UseStandard Drinks/WeekCommentsNot Currently0 (1 standard drink = 0.6 oz pure alcohol)ChildcareAnswerDate JzxpegvxDhjwwdtycKmrrfed17/31/2019Employment AnswerDate GefoxqdxRrmupfxjebLbqdhmx04/31/2019Hunger ScreeningAnswerDate RecordedWithin the past 12 months we worried whether our food would run out before we got money to buy more.Never True01/01/2025Within the past 12 months the food we bought just didn't last and we didn't have money to get more.Never True01/01/2025Purpose - LifeAnswerDate RecordedPurpose and direction in life Kjrelxd35/11/2021Estimated Date of OsmmsqsqGfbyaetvBty11/05/2026Based on last menstrual period of 07/28/2024Sex and Gender InformationValueDate Recorded Sex Assigned at BirthNot on fileLegal RurCrudqp89/31/2019 12:25 PM EDTGender IdentityNot on fileSexual OrientationNot on file Last Filed Vital Signs Vital SignReadingTime TakenCommentsBlood Urflbplk581/8010 1:44 PM EDT Jlbxn409602/16/2025 1:44 PM EDTTemperature--Respiratory Bfgx9554 1:44 PM EDTOxygen Saturation--Inhaled Oxygen Concentration--Lajhbw59.8 kg (209 lb) 02/16/2025 1:44 PM URHMeyltr500.6 cm (5' 6 )02/16/2025 1:44 PM EDTBody Mass Index33.7302/16/2025 1:44 PM EDT Plan of Treatment DateTypeDepartmentCare Team (Latest Contact Info)Gjvrwqdazua07/09/2025 1:30 PM ESTTelemedicine Maternal- Medicine at [facility] [address] [place] [address] Davida Smith PA-C [address] [facility] [address] [place] [address] Health MaintenanceDue DateLast DoneCommentsDepression Evtmhkgnk27/24/1998Adult BMI Follow Up Plan10/22/2003DTaP,Tdap and Td Vaccines (2 - Td or Tdap)07/03/2024 07/03/2014Influenza Mfqhiin3912/29/2024Pap SmearSV ( or age 60+ yrs) (1 - Risk 1-dose series)03/09/2025dult BMI Screening Tobacco Tgicfbinx87 Medical Devices Not on file Procedures Procedure NamePriorityDate/TimeAssociated DiagnosisCommentsEXTERNAL LAB ORDERS / RBHZVZUFputpva93/18/2025 4:22 PM ESTEXTERNAL LAB ORDERS / RESULTSRoutine 02/19/2025 3:15 PM EDTEXTERNAL LAB ORDERS / BCEIRKOZemipfn22/23/2025 3:13 PM EDT EXTERNAL LAB ORDERS / KISNNAWRirlkvr28/22/2025 1:58 PM EDTUS MFM OB FOLLOW-UP, 1 AHPLBVhjvvva64/09/2025 2:10 PM EDT Multigravida of advanced maternal age in second trimester Antiphospholipid syndrome complicating , antepartum Gestational diabetes mellitus (GDM) in second trimester controlled on oral hypoglycemic drug Insulin controlled gestational diabetes mellitus (GDM) in second trimester AMA (advanced maternal age) multigravida 35+, second trimester Hypothyroidism, unspecified type US MFM COMPREHENSIVE ANATOMIC QRCRMVGswgjtg76/04/2025 2:24 PM EDT Screening, , for anatomic survey Multigravida of advanced maternal age in second trimester from Last 3 Months Results * External Lab Orders / Results (03/17/2025 4:22 PM EST) Only the most recent of4 resultswithin the time period is included. Narrative Authorizing ProviderResult TypeResult StatusNot In System Ref ProvLAB ORDERABLES Final ResultPerforming OrganizationAddressCity/State/ZIP CodePhone Number MANUALLY TRANSCRIBED RESULTS * US MFM OB FOLLOW-UP, 1 FETUS (02/05/2025 2:10 PM EDT) Only the most recent of2 resultswithin the time period is included. Anatomical RegionLateralityModalityOB-GYNUltrasoundSpecimen (Source)Anatomical Location / LateralityCollection Method / VolumeCollection TimeReceived Time 02/05/2025 1:21 PM EDT Narrative 02/06/2025 5:22 PM EDT NAME: ??JUSTICE LEUNG : 1985 SEX: F Accession Number: [id number] ORDERING PHYSICIAN: MYA HERRMANN REFERRING PHYSICIAN: MYA HERRMANN Coding Procedures ? 62990: Ultrasound, uterus, real time with image documentation, follow up,transabdominal ? approach per fetus ? [address]4912: Echocardiography, , cardiovascular system, real time with image documentation (2D), with or ? without M-mode recording; follow-up or repeat study Indication Screening for follow-up survey, Screening for congenital cardiac abnormality , Gestational diabetes, AMA- Supervision of elderly , Supervision of high risk -(MOB son - hypospadia, MOB -son - laryngomalacia ), Obesity in , Hypothyroidism. History OB History ? 7. Para 3 ? D5X8S3V4 Current Cell free DNA ?Low Risk analysis [...] (oz) ? 4 oz EFW by: ?Hadlock (VLT-ZB-RD-FL) Extended Tibia ??46.0 mm 28w 0d 68% [...] Heart/Thorax: 4-chamber view. RVOT view. 3-vessel view. 8-ectzbx-qxoxwkv view. Great vessels. ? Right lung. Left [...] previously RVOT view ?normal 3-vessel view ??normal 1-bxiogf-cwfjazd view ??normal Aortic arch view ? normal [...] MVP measures 6.7 cm. Recommendations Please see [facility] recommendations from prior clinical and/or ultrasound report documentation. anatomic survey is incomplete (suboptimal spine images) due to late gestational age and suboptimal visualization. Patient is not scheduled to return for additional ultrasound. Please reschedule for specific concerns or indications. Subsequent follow up or other follow up as clinically determined by primary OB provider unless otherwise specified by [facility]. Results forwarded to ordering provider so they can follow up with the patient as necessary. Procedure Note Lala Gross MD - 02/06/2025 NAME: JUSTICE LEUNG : 1985 SEX: F Accession Number: [id number] ORDERING PHYSICIAN: MYA HERRMANN REFERRING PHYSICIAN: MYA HERRMANN Coding Procedures 25950: Ultrasound, uterus, real time with image documentation, follow up, transabdominal approach per fetus 53799: Echocardiography, , cardiovascular system, real timewith image documentation (2D), with or without M-mode recording; follow-up or repeat study Indication Screening for follow-up survey, Screening for congenital cardiacabnormality , Gestational diabetes, AMA- Supervision of elderly , Supervision of high risk -(MOB son - hypospadia, MOB -son - laryngomalacia ), Obesity in , Hypothyroidism. History OB History 7. Para 3 [id number] Current Cell free DNA Low Risk analysis [...] EFW (oz) 4 oz EFW by: Hadlock (BAE-HU-XW-FL) Extended Tibia 46.0 mm 28w 0d 68% [...] Heart/Thorax: 4-chamber view. RVOT view. 3-vessel view. 0-dehvvw-uzgvbklxqqs. Great vessels. Right lung. Left lung. Diaphragm. [...] previously RVOT view normal 3-vessel view normal 2-geflze-qaewjrp view normal Aortic arch view normal Ductal [...] MVP measures 6.7 cm. Recommendations Please see [facility] recommendations from prior clinical and/or ultrasoundreport documentation. anatomic survey is incomplete (suboptimal spine images) due to late gestational age and suboptimal visualization. Patient is not scheduled to return for additional ultrasound. Pleasereschedule for specific concerns or indications. Subsequent follow up or other follow up as clinically determined byprimary OB provider unless otherwise specified by [facility]. Results forwarded to ordering provider so they can follow up with thepatient as necessary. Authorizing ProviderResult TypeResult StatusCorey Spencer Herrmann DOIMG ORDERABLES Final Result from Last 3 Months Insurance Care Teams Team MemberRelationshipSpecialtyStart DateEnd Date Evans Casas DO [facility]07/07/19
--- OUTSIDE RECORDS SUMMARY | 2025-03-30 18:19 | XMS_ITS | Encounter Summary ---
Author Organization [facility] Address [address] [facility] [place] [address] Care Team Providers Care Memorial Designer Name Role Phone Evans Casas MD Primary Care Provider [phone] Encounter Details DateTypeDepartmentCare Team (Latest Contact Info)Icvcpenuowc38/20/2025linisync Result Encounter [facility] External Department Unsolicited Mya Herrmann DO [address] [place], [facility]11 Social History Tobacco UseTypesPacks/DayYears UsedDateSmoking Tobacco: NeverSmokeless Tobacco: NeverAlcohol UseStandard Drinks/WeekCommentsNever0 (1 standard drink = 0.6 oz pure alcohol)PHQ-2AnswerDate RecordedPatient Health Questionnaire-2 Score0 03/03/2025Estimated Date of UfbvecbcSrabxsakVpn89/05/2026Based on last menstrual period of 07/28/2024Sex and Gender InformationValueDate RecordedSex Assigned at BirthNot on fileLegal HheMktlbt61/15/2023 11:19 PM EDTGender IdentityNot on fileSexual OrientationNot on filedocumented as of this encounter Plan of Treatment DateTypeDepartmentCare Team (Latest Contact Info)Cplhpzsfujo76/10/2025 1:40 PM ESTRoutine [facility] [place] [facility] [address] [place] [phone] Mya Herrmann DO [address] [place] [address] 04/15/2025 1:50 PM ESTRoutine [facility] [place] [facility] [address] [facility] [phone] Mya Herrmann, DO [address] [facility] [place] [address] documented as of this encounter Procedures Procedure NamePriorityDate/TimeAssociated DiagnosisCommentsUS OB GROWTH 03/19/2025 11:51 PM EST documented in this encounter Results * US OB GROWTH (03/19/2025 11:51 PM EST)Anatomical RegionLateralityModalityOther Specimen (Source)Anatomical Location / LateralityCollection Method / Volume Collection TimeReceived Time03/19/2025 11:51 PM EST Narrative 03/19/2025 11:53 PM EST [facility] ?[address] ? [place] [address] ? Ultrasound Report ? Signed ? Patient: JUSTICE,MADHU S ?MR#: [id number] ?? : 1985 ?Acct:[id number] ?? Age/Sex: 39 / F ?ADM Date: 03/19/25 ?? Loc: US ? Attending Dr: Mya Herrmann D.O. ? Ordering Physician: Mya Herrmann D.O. ?? Date of Service: 03/19/25 ?? Procedure(s): US OB growth ?? Accession Number(s): [id number] ? cc: Mya Herrmann D.O.; Physician,Non-Staff M.D. ? [facility] ? [address] ? [place] [address] ? Patient Name: ?? MADHU RENDON ? MRN: [id number] ? date: 1985 ?Sex: F ?? Assigned Patient Location: US ?? Current Patient Location: ? Accession/Order Number: [id number] ?? Exam Date: 03/19/2025 ??19:20 ?Report Date: [...] M.D. ??03/19/2025 11:51 PM ? Dictation Location: [place] [address] ? Electronically authenticated by: [id number] ??Y ?? Date: 03/19/2025 ??23:51 ? Dictated By: ?Robert Beltrán D.O. ? Signed By: ?03/19/25 2353 ? DD/ 2351 ? TD/TT: ? Mental Health Advanced Practice Nurse: Procedure Note Radiology, Radiologist, - 03/19/2025 [place] [address] Ultrasound Report Signed Patient: MADHU RENDON SMR#: [id number] : 1985Acct:[id number] Age/Sex: 39 / FADM Date: 03/19/25 Loc: US Attending Dr: Mya Herrmann D.O. Ordering Physician: Mya Herrmann D.O. Date of Service: 03/19/25 Procedure(s): US OB growth Accession Number(s): [id number] cc: Mya Herrmann D.O.; Physician,Non-Staff MGiovanni The [address] [address] Patient Name: MADHU RENDON MRN: [id number] date: 1985 Sex: F Assigned Patient Location: Current Patient Location: Accession/Order Number: [id number] Exam Date: 03/19/2025 19:20 Report Date: 03/19/2025 [...] Beltrán M.D. 03/19/2025 11:51 PM Dictation Location: [place] [address] Electronically authenticated by: [id number] Y Date: 3:51 Dictated By: Robert Beltrán D.O. Signed By:03/19/252352 DD/ 50 TD/TT: Mental Health Advanced Practice Nurse: Authorizing ProviderResult TypeResult StatusCorey Montez DOCLINISYNC IMAGINGFinal Result documented in this encounter Visit Diagnoses Not on filedocumented in this encounter Care Teams Team MemberRelationshipSpecialtyStart DateEnd Date Evans Casas MD [address] [facility] [place] [address] PCP - GeneralFamily Medicine11/07/23documented as of this encounter
--- OUTSIDE RECORDS SUMMARY | 2025-03-30 18:19 | XMS_ITS | Encounter Summary ---
Author Organization [facility] tem Address [id number] [address] [place] [address] Care Team Providers Care Transportation Solutions Manager Name Role Phone Melindaanna Evans Tony DO Primary Care Provider [phone] Encounter Details DateTypeDepartmentCare Team (Latest Contact Info)Qtifvubcadi18/18/2025Orders Only [facility], A Department of [address] [address] Ref Prov, [place] [address] Social History Tobacco UseTypesPacks/DayYears UsedDateSmoking Tobacco: NeverSmokeless Tobacco: NeverAlcohol UseStandard Drinks/WeekCommentsNot Currently0 (1 standard drink = 0.6 oz pure alcohol)ChildcareAnswerDate KtmdasesIusofprwcUlndwhf80/31/2019 EmploymentAnswerDate YfkttikoVekfclnazxHbgmrvq45/31/2019Hunger ScreeningAnswer Date RecordedWithin the past 12 months we worried whether our food would run out before we got money to buy more.Never True01/01/2025Within the past 12 months the food we bought just didn't last and we didn't have money to get more.Never True01/01/2025Purpose - LifeAnswerDate RecordedPurpose and direction in life Ilcjkhw90/11/2021Estimated Date of RdvqgotaHudbrmadXge36/05/2026Based on last menstrual period of 07/28/2024Sex and Gender InformationValueDate Recorded Sex Assigned at BirthNot on fileLegal SefWxlxis63/31/2019 12:25 PM EDTGender IdentityNot on fileSexual OrientationNot on filedocumented as of this encounter Plan of Treatment DateTypeDepartmentCare Team (Latest Contact Info)Corpwurmtfd95/09/2025 1:30 PM ESTTelemedicine Maternal- Medicine at [facility] [address] [place] [address] Davida Smith PA-C [address] [place] [address] documented as of this encounter Procedures Procedure NamePriorityDate/TimeAssociated DiagnosisCommentsEXTERNAL LAB ORDERS / XJJUOPHFanioix81/18/2025 4:22 PM ESTdocumented in this encounter Results [...]
--- OUTSIDE RECORDS SUMMARY | 2025-03-30 18:19 | XMS_ITS | Clinical Summary ---
Author Organization [facility] Address [address], [address] [place] [address] Care Team Providers Care Certified Juvenile Probation Officer Name Role Phone Evans Casas DO Primary Care Provider [phone] Allergies Active AllergyReactionsCriticalityNoted DateCommentsCiprofloxacinOther (See Comments)06/19/2019Ciprofloxacin-Fluocinolone PfOther [...] elevated without history of HTN12/11/2023ry mouth 12/11/2023Environmental sgelzassv88/13/2024H/O: wuhakkclxxlngi34/13/2024History of gyvpdi0712/11/2023History of gestational qbiltgzh64/13/2024History of kidney bbifss3612/11/2023Hx of iron deficiency jnqmkr5712/11/2023Immunization not carried out because of patient /13/2024Morbid sscvisa5212/11/2023Non-smoker 12/11/2023OSA (obstructive sleep apnea)12/11/2023ight otitis hpromig3412/11/2023 Abdominal pain06/12/2023cute bronchitis due to svlhsquoy37/13/2024nxiety 06/12/2023ysfunction of eustachian tube06/12/20238210Xqvvswk84/13/2024Hematochezia 06/12/2023History of severe acute respiratory syndrome coronavirus 2 (SARS-CoV-2) vbtfpve8406/12/20237110Vawayvluttqr89/13/2024Inhalation jicnag8306/12/2023 obifovn7206/12/2023sychogenic yrdabezouilpvjzf52/13/2024Suspected severe acute respiratory syndrome coronavirus 2 (SARS-CoV-2) /13/2024 Primary hypercoagulable state08/01/2022estational diabetes mellitus in , unspecified diotqhl0401/26/2022Genitourinary eotwrskq13/22/2022Muscle hcgqmouxkqqpn14/22/2022TIA (transient ischemic attack)06/16/2020erebrovascular accident (CVA) due to stenosis of middle cerebral lklcfm8602/22/2020Anticoagulant long-term use02/22/2020Acute posthemorrhagic cdlxjn6901/16/202039 weeks gestation of hfzqlmxej28/18/2020Anemia complicating xbpkhrouog94/18/2020Endocrine, nutritional and metabolic diseases complicating mypsauvdij37/18/2020First degree perineal laceration during mazsiksu75/18/2020Other immediate fbxxmootwg06/18/2020Personal history of transient ischemic attack (TIA), and cerebral infarction without residual wxyvwwhs90/18/2020Personal history of urinary (tract) jguxmgwrnp88/18/2020Single live birth01/15/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01/08/202038 weeks gestation of sigqdjpiw50/09/2020Pruritus, faclybbehjf94/04/202037 weeks gestation of /04/166335 weeks gestation of tmvnkchwi81/01/2020Other speech and language deficits following cerebral sahjspwszx97/01/2020Other diseases of the blood and blood-forming organs and certain disorders involving the immune mech anism complicating zkedgtysgr55/25/478090 weeks gestation of sgitdyrcn38/24/2020 34 weeks gestation of pwunoxjvf03/18/432034 weeks gestation of 12/10/201932 weeks gestation of oqsrkrcoy42/31/2020Thrombocytopenia, unspecified 11/20/2019Other general symptoms and signs10/28/2019Urinary tract infection, site not hgoiekvky95/18/6124Imuzbnxeawvh29/28/2020SVT (supraventricular tachycardia)08/26/2019Antiphospholipid antibody ymquphrh17/09/2020Other bacterial infections of unspecified site06/27/2019Less than 8 weeks gestation of tegkzrteb92/06/2020Encounter for supervision of normal , unspecified, first anpthgxgk81/30/6789Mdvpyiwzabgu90/17/2020Cerebral infarction, unspecified 05/16/2019Paresthesia of skin05/16/2019Deficiency of other specified B group /17/2020Hypothyroidism, zxqmrekofjs40/17/2020Unspecified condition associated with female genital organs and menstrual cycle05/09/2019Vomiting of , /06/2020Other specified noninflammatory disorders of latbfz2102/21/2019Frequency of mtzfahugmvr94/23/2019Unspecified ovarian cyst, right side02/06/2019Coagulation defect, pqcffewvnxi69/09/2019Cervicalgia 02/05/2019Long term (current) use of 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/wjhyeprjgdghr87/09/2019 Dizziness and /09/2019Other acute postprocedural pain02/03/2019Pelvic and perineal pain02/01/2019Syncope and uisxtirl32/04/2019Anticardiolipin antibody bemxlfhn64/29/2018Migraine without aura and without status migrainosus, not yprzeszfnzr35/16/2018Antiphospholipid antibody fhdtqhhu05/14/2018Pain in joint12/29/20164061Uwqocrt53/01/2017Idiopathic progressive jkxpyvqkly01/01/2017 Resolved Problems ProblemNoted DateDiagnosed DateResolved BfozHpeqy83/ Encounters DateTypeDepartmentCare RmlqIlwbkqzzuiq43/24/2025 2:30 PM EDTOffice Visit [facility] [address] [place] [address] [place] [address] Peng Osorio MD Antiphospholipid antibody syndrome (Primary [...] InformationValueDate RecordedSex Assigned at BirthNot on fileLegal GskJnydvs61/14/2017 2:04 PM EDT Gender IdentityNot on fileSexual OrientationNot on file Last Filed Vital Signs Vital SignReadingTime TakenCommentsBlood Ngtbihhf593/6409 2:40 PM EDT Bylgh368701/21/2025 2:40 PM NOGCczamzqnbur55.2 ??C (97.2 ??F)02/09/2022 11:22 AM EDTRespiratory Hpuz7883 11:22 AM EDTOxygen Tspxhjnmos99%10/04/2020 2:01 PM EDTInhaled Oxygen Concentration--Uvzsbp22.8 kg (209 lb)01/21/2025 2:40 PM EDT Djeavw435.6 cm (5' 6 )02/09/2022 11:22 AM EDTBody Mass Index33.7302/09/2022 11:22 AM EDT Plan of Treatment DateTypeDepartmentCare Team (Latest Contact Info)Tcfwegadpdb85/25/2026 1:45 PM EDTOffice Visit [facility] [address] [place] [address] [place] [address] Peng Osorio MD [address] [place] [address] [place] [id number] 6 MOS FUPHealth MaintenanceDue DateLast DoneCommentsDepression Mektmc7510/21/1997 Varicella vaccine (1 of 2 - 13+ 2-dose series)1998Hepatitis C screen 10/22/2003Hepatitis B vaccine (1 of 3 - 19+ 3-dose series)2004Pap smear 2006Cervical cancer epddjx6910/22/2015HPV (without or with Pap)10/22/2015 DTaP/Tdap/Td vaccine (2 [...] Procedure NamePriorityDate/TimeAssociated DiagnosisCommentsHIV-1,-2 W/REFLEX TO HIV-1 WESTERN YGKWTuaetbl20/01/2017 11:49 AM EDT Arthralgia, unspecified joint Fatigue, unspecified type Sensation disorder from Last 3 Months or Most Recently Relevant to Health Maintenance Results * Hiv-1,-2 W/Reflex To Hiv-1 Western Blot (12/29/2016 11:49 AM EDT)Component ValueRef RangeTest MethodAnalysis TimePerformed AtPathologist Signature HIV-1/HIV-2 JmEkeallsqFwuyeaxm06/03/2017 12:[address] [facility] Comment: Based on the non-reactive anti-HIV (BRENDEN) screen, the HIV Western blot is not indicated and therefore not performed. INTERPRETIVE INFORMATION: HIV-1,-2 w/Reflex to HIV-1 Western Blot This assay should not be used for blood donor screening, associated re-entry protocols, or for screening Human Cells, Tissues and Cellular and Tissue-Based Products (HCT/P). Performed by [employer], [facility][note 3] [place] [address] [email or web address], Zhang Bledsoe MD - Lab. Director Specimen (Source)Anatomical Location / LateralityCollection Method / Volume Collection TimeReceived TimeBLOOD SPECIMEN / Dcwhnjp1612/29/2016 11:49 AM EDT 12/29/2016 1:50 PM EDT Narrative Authorizing ProviderResult TypeResult StatusRitiki Monroe MDHEMATOLOGY ORDERABLES Final ResultPerforming OrganizationAddressCity/State/ZIP CodePhone Number [facility] [address] [place] [address], [facility] [phone] from Last 3 Months or Most Recently Relevant to Health Maintenance Insurance Care Teams Team MemberRelationshipSpecialtyStart DateEnd Date Evans Casas DO [address] [place] [address] PCP - GeneralFamily Medicine10/04/20
--- OUTSIDE RECORDS SUMMARY | 2025-03-30 18:19 | XMS_ITS | Encounter Summary ---
Author Organization [facility] Address [address] [facility] [place] [address] Care Team Providers Care Restorative Coordinator Name Role Phone Evans Casas MD Primary Care Provider [phone] Encounter Details DateTypeDepartmentCare Team (Latest Contact Info)Hvvbwnnbfoy84/26/2025amboo flowsheet [facility] [address] [place] [address] Wilton Herrmann DO [address] [place], [place] [address] Social History Tobacco UseTypesPacks/DayYears UsedDateSmoking Tobacco: NeverSmokeless Tobacco: NeverAlcohol UseStandard Drinks/WeekCommentsNever0 (1 standard drink = 0.6 oz pure alcohol)PHQ-2AnswerDate RecordedPatient Health Questionnaire-2 Score0 03/03/2025Estimated Date of SpmshbtcEvspcppaAvo50/05/2026Based on last menstrual period of 07/28/2024Sex and Gender InformationValueDate RecordedSex Assigned at BirthNot on fileLegal YhlHflayn00/15/2023 11:19 PM EDTGender IdentityNot on fileSexual OrientationNot on filedocumented as of this encounter Plan of Treatment DateTypeDepartmentCare Team (Latest Contact Info)Ifstujktgox11/10/2025 1:40 PM ESTRoutine [facility] COL[facility] [address] [place] [address] Wilton Herrmann, DO [address] [facility] [place] [address] 04/15/2025 1:50 PM ESTRoutine [facility] [address] [place] [address] Wilton Herrmann, [address] [place], [facility]11 documented as of this encounter Visit Diagnoses Not on filedocumented in this encounter Care Teams Team MemberRelationshipSpecialtyStart DateEnd Date Evnas Casas MD [address] [place] [address] PCP - GeneralFamily Medicine11/07/23documented as of this encounter
--- OUTSIDE RECORDS SUMMARY | 2025-03-30 18:19 | XMS_ITS | Encounter Summary ---
Author Organization [facility] tem Address [id number] [address] [place] [address] Care Team Providers Care Cleaning Supervisor Name Role Phone Evans Casas DO Primary Care Provider [phone] Encounter Details DateTypeDepartmentCare Team (Latest Contact Info)Wofvqmmhcfz57/18/2025Travel Social History Tobacco UseTypesPacks/DayYears UsedDateSmoking Tobacco: NeverSmokeless Tobacco: NeverAlcohol UseStandard Drinks/WeekCommentsNot Currently0 (1 standard drink = 0.6 oz pure alcohol)ChildcareAnswerDate FzqswpeeSvsaiijgnMcrlxxy52/31/2019 EmploymentAnswerDate WphrepkhNwpglsgoajVzrmmsa83/31/2019Hunger ScreeningAnswer Date RecordedWithin the past 12 months we worried whether our food would run out before we got money to buy more.Never True01/01/2025Within the past 12 months the food we bought just didn't last and we didn't have money to get more.Never True01/01/2025Purpose - LifeAnswerDate RecordedPurpose and direction in life Iuqrpwu93/11/2021Estimated Date of IvjkeoemPdepfohvNpw40/05/2026Based on last menstrual period of 07/28/2024Sex and Gender InformationValueDate Recorded Sex Assigned at BirthNot on fileLegal PdmXtnehr41/31/2019 12:25 PM EDTGender IdentityNot on fileSexual OrientationNot on filedocumented as of this encounter Plan of Treatment DateTypeDepartmentCare Team (Latest Contact Info)Ywzwqlxygrv26/09/2025 1:30 PM ESTTelemedicine Maternal- Medicine at [facility] [address] [place] [address] Davida Smith, PAPilyC [address] [address] documented as of this encounter Visit Diagnoses Not on filedocumented in this encounter Care Teams Team MemberRelationshipSpecialtyStart DateEnd Date Evans Casas DO PCP - GeneralFamily Medicine07/07/19documented as of this encounter
--- OUTSIDE RECORDS SUMMARY | 2025-03-30 18:24 | XMS_ITS | CCD ---
Author Organization [facility] CliniSyla Care Team Providers Care Jewel Hole Rough Opener Name Role Phone CROW MONGE Unavailable Unavailable BIBI CHRISTY Unavailable Unavailable ERIKA LONDON Attending Unavailab ERIKA Haddad Referring Unavailab Haseeb Chavez Attending Unavailable Crow Monge Referring Unavailable Humaira Gaviria MD Primary Care Provider Jonny Wilcox MD Unavailable [phone] Penelope CASAS Primary Care Physician [phone] Cheri Norwood Unavailable Unavailable Cosmo Elliott MD Unavailable Lauro RN, Davida Unavailable Penelope Casas Primary Care Provider [phone] PENELOPE CASAS Primary Care Unavailable PERVÍCTOR, FALGUNI C Referring Unavailable Humaira Gaviria MD Primary Care Provider [phone] Jonny Wilcox MD Unavailable [phone] Cosmo Elliott MD R Unavailable Lauro RN, Davida Unavailable Penelope Casas DO Primary Care Provider [phone] Jonny Wilcox MD P Unavailable Cosmo Elliott [...] Unavailable MONTEZ, DR ROQUE Primary Care Unavailable TOLEDO, DR ANGIE Luna Consulting Unavailable MONTEZ, DR [...] MONTEZ, DR ROQUE Attending Unavailable MONTEZ, DR RQOUE Primary Care Unavailable MONETZ, DR ROQUE Consulting Unavailable MONTEZ, DR ROQUE [...] MONTEZ, DR ROQUE Attending Unavailable MONTEZ, DR ORQUE Primary Care Unavailable KARASIK, DR ACUNA Admitting Unavailable KARASIK, DR ACUNA Attending Unavailable MONTEZ, DR ROQUE Primary Care Unavailable KARASIK, DR ACUNA Consulting Unavailable MONTEZ, DR ROQUE Admitting Unavailable MONTEZ, DR ROQUE Primary Care Unavailable MONTEZ, DR ROQUE Consulting Unavailable MONTEZ, DR ROQUE Attending Unavailable ZIEBER, DR HUMREA Palmer Consulting Unavailable MONTEZ, DR ROQUE Admitting [...] Attending Unavailable MONTEZ, Wilton R Admitting Unavailable MONETZ, Wilton R Attending Unavailable MONTEZ, Wilton R Admitting Unavailable Penelope Casas MD Primary Care Provider Wilton Herrmann DO Attending Provider [phone] Montez, Wilton Attending Unavailable Montez, Wilton Admitting [...] Penelope Casas MD Primary Care Provider MONTEZ, Iwlton R Admitting Unavailable MONTEZ, Wilton R Attending [...] of OnsetReaction(s) Facility (20 sources)Ciprofloxacin; Translations: [ciprofloxacin]Drug Oozutyj82-96-8419 Other: See Comments, Unknown, Numbness and tingling sensation of skin (finding), Nausea (finding), Other (See Comments), GI intolerance, [facility] (20 sources)Ciprofloxacin / fluocinolone; Translations: [CIPROFLOXACIN-FLUOCINOLONE]Drug Tgoudag61-06-8450Pzmsq: See CommentsK[facility]tering Health [facility] (20 sources)cow milk allergenic extract; Translations: [MILK]Drug Allergy 72-65-4472Rdgak: See [facility] Work Phone: (20 sources)Lactalbumin; Translations: [LACTALBUMIN]Drug Lgtasij99-56-0645 Unknown, GI Upset, Other (See Comments)[facility] (20 sources)Lactose; Translations: [LACTOSE]Drug Krogfyi66-84-8968ZP Upset, GI DisturbanceK[facility]tering Health [facility] (20 sources)MilkDrug Mnqzkcz67-08-0955Czgyk: See Comments, Other (See Comments) [facility] (6 sources)PenicillinsDrug Lxyoscy69-87-6792KtragqhTojmqgmuw Clinic (20 sources)Seasonal allergy; Translations: [SEASONAL ALLERGIES]Allergy to dfxkuhrkp49-49-6233UO Upset, Other: See [facility] Work Phone: (20 sources)Milk Products; Translations: [Milk Products]Drug allergyIllness (finding)[facility] (20 sources)Ciprofloxacin / fluocinoloneDrug Szshozd67-61-0821Oxboh (See Comments)[employer] Work Phone: (1 source)Seasonal allergyPropensity to adverse reactions to lhhlsjxri80-74-8859 Other (See Comments)[employer] Work Phone: (1 source)Milk-Related CompoundsPropensity to adverse reactions to drug 53-04-2868Qzsjf (See Comments)[employer] Work Phone: (2 sources)PenicillinsDrug Rokysmg11-56-4524XosaqsoQrkhoaklt Clinic (1 source)CiprofloxacinDrug Rmzycnt27-64-0541HqqL[facility] (20 sources)Lactose (non-medical use)Propensity to adverse rqvxibemg92-16-4726 [facility] (20 sources)Lactose (non-medical use)Drug Rtsbqbc03-55-4940[facility] (20 sources)OctacosanolDrug Nvctojvjkhs77-40-6403[facility] (20 sources)OtherAllergy to qaxfpyehm28-43-7195BoaliDHHK [facility] Work Phone: (3 sources)MILK CONTAINING PRODUCTS (DAIRY); Translations: [MILK CONTAINING PRODUCTS (DAIRY)]Propensity to adverse reactions to drug (disorder)05-25-2017 [facility] Medications Current Medications MedicationDrug Class(es)DatesSig (Normalized)Sig (Original)acetaminophen 300 mg / codeine phosphate 30 mg oral tablet (1 source)Opioid AgonistStart: 97-68-7533kgyzvrlczucts-codeine (TYLENOL #3) 300- 30 MG per tabletAlbuterol (Eqv-ProAir HFA) 90 mcg/inh inhalation aerosol (6 sources)Start: 81-19-9529hjkk 2 puff(s) by inhalation every six hours Albuterol (Eqv-ProAir HFA) 90 mcg/inh inhalation aerosol 2 puff(s), Inhalation, q6hr, 1 EA, Refill(s) 5, [facility], 168, cm, 02/02/24 14:43:00 EDT, Height/Length Dosing, 101.1, kg, 02/02/24 14:43:00 EDT, Weight Dosing Start Date: 02/02/24 Status: Orderedazithromycin 250 mg oral tablet (20 sources)Macrolide AntimicrobialStart: 09-08-2024 End: 44-78-5981wgzdtwuyrans (Zithromax Z-Jonny) 250 MG tablet Indications: 5 weeks gestation of ([facility]) As directed 6 tablet 09/08/2024 10/30/2024 Discontinued (Therapy completed)Start: 06-19-2024 End: 77-69-0737Vmgxdamqg 250 mg Tab = 1 packet(s), Oral, As Directed, as directed on package labeling, X 5 day(s),# 6 tab(s), Refills(s) 1, Pharmacy: [facility], 168, cm, 06/09/24 14:03:00 EST, Height/Length Dosing, 98.4, kg, 06/19/24 16:19:00 EST, Weight Dosing Start Date: 06/19/24 Stop Date: 06/29/24 Status: OrderedStart: 04-21-2024 End: 96-15-0956qjpkdutuvioc (Zithromax Z-Jonny) 250 MG tablet Indications: Upper respiratory tract infection, unspecified type As directed 6 tablet 04/21/2024 05/06/2024 Discontinuedazithromycin 250 mg Tab 5-day Dose Pack (Z-Jonny) (2 sources)Start: 02-02-2024 End: 65-74-2903xxgkrrekdpie 250 mg Tab 5-day Dose Pack (Z-Jonny) = 1 packet(s), Oral, As Directed, as directed on package labeling, X 5 day(s), # 6 tab(s), Refills(s) 0, Pharmacy: [facility], 168, cm, 02/02/24 14:43:00 EDT, Height/Length Dosing, 101.1, kg, 02/02/24 14:43:00 EDT, Weight Dosing Start Date:02/02/24 Stop Date: 02/07/24 Status: OrderedBlood Glucose Monitoring Suppl (D-Care Glucometer) w/Device kit (20 sources)Start: 10-30-2024 End: 35-66-9436Jbqva Glucose Monitoring Suppl (D-Care Glucometer) w/Device kit Indications: Second trimester ([facility]) , 13 weeks gestation of ([facility]) , Multigravida of advanced maternal age in second trimester ([facility]) , Gestational diabetes mellitus (GDM), antepartum, gestational diabetesmethod of control unspecified ([facility]) , Elevated glucose tolerance test 1 kit Daily Use four times daily to check FSBS. In the morning prior to breakfast & 1 hour after each meal for a total tw6aiakr daily. 1 kit 10/30/2024 10/30/2025 Activeblood-glucose meter (BLOOD GLUCOSE MONITORING) kit (20 sources)blood-glucose meter (BLOOD GLUCOSE MONITORING) kit 1 each by other route in the morning. Use to check blood sugar 4 times daily . Activeblood- glucose sensor (FREESTYLE JENIFER 3 PLUS SENSOR) device (13 sources)Start: 62-68-7127ivco 2 doses by mouth onceblood-glucose sensor (FREESTYLE JENIFER 3 PLUS SENSOR) device Indications: Gestational diabetes mellit us (GDM) in second trimester controlled on oral hypoglycemic drug Wear for 15 days and change 2 each 6 12/26/2024 Activecephalexin 500 mg oral tablet (20 sources)Cephalosporin AntibacterialStart: 08-19-2021 End: 56-49-9733hsym 1 tablet by mouth twice dailycephalexin 500 mg oral tablet 500 mg = 1 tab(s), Oral, BID, X 10 day(s), # 20 tab(s), Refills(s) 0,Pharmacy: [facility], 168, cm, 08/19/21 10:50:00 EDT, [...] suspension (2 sources)Corticosteroid, Quinolone AntimicrobialStart: 10-23-2023 End: 78-65-8301Rmbnkjqd 0.3%-0.1% Susp-Otic 4 drop(s), Otic, BID for 7 day(s), 7.5 mL, Refill(s) 0, [id number], 168, cm, 10/23/23 16:55:00 EDT, Height/Length Dosing, 106.2, kg, 10/23/23 16:55:00 EDT, WeightDosing Start Date: 10/23/23 Stop Date: 10/30/23 Status: OrderedStart: 02-15-2023 End: 31-02-9680Tecuiknh 0.3%-0.1% Susp-Otic 4 drop(s), Otic, BID for 7 day(s), 7.5 mL, Refill(s) 0, Only use if drainage or pain of ear shake well before using, [facility], 168, cm, 02/15/23 9:49:00 EDT,Height/Length [...] (20 sources)Low Molecular Weight HeparinStart: 01-19-2025 End: 18-97-9427Yylvwuipmg Sodium (Lovenox) 40 MG/0.4ML solution prefilled syringe Indications: Anticoagulant long-term use , Antiphospholipid antibody positive , Antiphospholipid antibody syndrome ([facility]) Inject 40 mg as directed Daily for 30 doses 12 mL 3 01/19/2025 02/18/2025 ActiveStart: 01-09-2025 End: 20-06-4683iimqys 0.4 mL by subcutaneous injection onceenoxaparin (LOVENOX) 40 mg/0.4 mL syringe Indications: Antiphospholipid syndrome Inject 0.4 mL (40 mg total) under the skin Every 12 (twelve) hours. 24 mL 6 01/13/2025 ActiveStart: 05-03-2023 End: 63-94-6305kcfqsldtqh (LOVENOX) 40 mg/0.4 mL Indications: Primary hypercoagulable state (HCC) , CVA, old, speech/language deficit , Cerebral hyponatremia INJECT 1 SYRINGE SUBCUTANEOUSLY EVERY 24 HOURS 90 mL 10/29/2024 ActiveStart: 04-06-2022 End: 50-57-6112jeqivoifkh (LOVENOX) 40 mg/0.4 mL Indications: Primary hypercoagulable state (HCC) , CVA, old, speech/language deficit , Cerebral hyponatremia INJECT THE CONTENTS OF ONE SYRINGE (0.4 ML) SUBCUTANEOUSLY EVERY 24 HOURS 90 mL 2 09/28/2022 ActiveStart: 09-06-2021 End: 83-04-9593pcovbi 0.8 mL by subcutaneous injection twice dailyenoxaparin (LOVENOX) 80 mg/0.8 mL Indications: Primary hypercoagulable state (HCC) Inject 0.8 mL subcutaneously twice daily. 48 mL 5 09/06/2021 10/06/2021 ActiveStart: 04-07-2020 End: 71-51-3894juvrcd 0.4 mL by subcutaneous injection every twenty-four hours enoxaparin (LOVENOX) 40 mg/0.4 mL Indications: Primary hypercoagulable state (HCC) , CVA, old, speech/language deficit , Cerebral hyponatremia Inject 0.4 mL subcutaneously every 24 hours. 36 mL 0 12/30/2021 03/30/2022 Active End: 69-12-4739knkrxp 40 mg by subcutaneous injection in the [...] enoxaparin (LOVENOX) 40 MG/0.4ML injection (1 source)Start: 74-26-1974yxfgeiwwba (LOVENOX) 40 MG/0.4ML injection Inject 0.4 mLs into the skin daily 16 mL 1 02/20/2020 Activeenoxaparin (Lovenox) 40 MG/0.4ML injection (20 sources)enoxaparin (Lovenox) 40 MG/0.4ML injection 1 (one) time each day at the same time Activefamotidine 40 mg oral tablet (20 sources)Histamine-2 Receptor AntagonistStart: 12-34-5539scnc 1 tablet by mouth once daily at bedtimePepcid 40 mg Tab 40 mg = 1 tab(s), Oral, Once a day (at bedtime), # 90 tab(s), Refills(s) 4, Pharmacy: [facility], 168, cm, 06/30/24 8:36:00 EST, Height/Length Dosing, 97.2, kg, 06/30/24 8:36:00 EST, Weight Dosing Start Date: 06/30/24 Status: Ordered Quantity: 90.0 Unit: tab(s) Repeat number: 5Start: 11-29-2023 End: 70-61-1164vxjb 1 tablet by mouth once dailyfamotidine (PEPCID) 20 mg tablet Take 1 tablet by mouth once daily. To take prior to infusion 1 tablet 11/29/2023 10/28/2024 Discontinued (Discontinued by Patient)Start: 11-29-2023 End: 20-37-7634putzcdwehy 20 mg injection (PEPCID)fluconazole 150 mg oral tablet (6 sources)Azole AntifungalStart: 14-71-2627Dgttsfym 150 mg Tab 150 mg = 1 tab(s), Oral, q7day, # 4 tab(s), Refills(s) 1, Pharmacy: [facility], 168, cm, 06/09/24 14:03:00 EST, Height/Length Dosing, 98.4, kg, 06/19/24 16:19:00 EST, Weight Dosing Start Date: 06/19/24 Status: Ordered Quantity: 4.0 Unit: tab(s) Repeat number: 2 Indication: Candidiasis, unspecifiedfluticasone propionate 0.05 mg/actuat metered dose nasal spray (20 sources)CorticosteroidStart: 11-20-2024 End: 88-16-9513slxk 1 spray(s) nasal route once dailyfluticasone (Flonase) 50 MCG/ACT nasal spray Indications: Sinus headache Administer 1 spray into each nostril Daily Shake gently. Before first use, prime pump. After use, clean tip and replace cap. 16 g 3 11/20/2024 11/20/2025 ActiveStart: 98-28-2343Rsqqrsj 0.05 mg/inh [place] 2 spray(s), Nasal, Daily, 16 gram, Refill(s) 11, each nostril, [id number], 168, cm, 06/09/24 14:03:00 EST, Height/Length Dosing, 99.1, kg, 06/09/24 14:03:00 EST, Weight Dosing Start Date: 06/09/24 Status: Ordered Quantity: 16.0 Unit: g Repeat number: 12Start: 78-75-3743Yrwcfni 0.05 mg/inh [place] 2 spray(s), Nasal, Daily, 16 gram, Refill(s) 11, each nostril, [id number], 168, cm, 06/09/24 14:03:00 EST, Height/Length Dosing, 99.1, kg, 06/09/24 14:03:00 EST, Weight Dosing Start Date: 06/09/24 Status: OrderedStart: 53-16-4987Mclfpwj 0.05 mg/inh [place] 2 spray(s), Nasal, Daily, 16 gram, Refill(s) 0, each nostril Start Date: 08/03/23 Status: Orderedisopropyl alcohol 0.7 ml/ml medicated pad (20 sources)Start: 05-07-8885Dmnfbkx Swabs (Alcohol Prep Pad) 70 % pads Indications: Second trimester ([facility]) , 13 weeks gestation of ([facility]) , Multigravida of advanced maternal age in second trimester ([facility]) , Gestational diabetes mellitus (GDM), antepartum, gestational diabetes method of control unspecified ([facility]) , Elevated glucose tolerance test Apply 1 Pad topically Daily Use four times daily to check FSBS. 150 each 3 10/30/2024 Activelevothyroxine sodium 0.025 mg oral tablet (20 sources)l-ThyroxineStart: 87-63-7513ceqsdemdyqcsu 25 mcg (0.025 mg) Tab 25 mcg = 1 tab(s), Oral, Daily, Dr. Celaya, # 30 tab(s), Refills(s) 0 Start Date: 06/09/24 Status: Ordered Quantity: 30.0 Unit: tab(s) Repeat number: 1Start: 06-02-2024 End: 71-03-2252uihz 1 tablet by mouth before mealtimelevothyroxine (Synthroid) 50 MCG tablet Indications: History of thyroid disease Take 1 tablet (50 mcg) by mouth in the morning. Take before meals. 30 tablet 11 06/02/2024 06/23/2024 DiscontinuedStart: 02-25-2024 End: 78-29-5816fmun 1 tablet by mouth before mealtimelevothyroxine (Synthroid) 25 MCG tablet Indications: Abnormal TSH Take 1 tablet (25 mcg) by mouth in the morning. Take before meals. 30 tablet 11 06/23/2024 06/23/2025 ActiveStart: 08-24-2021 End: 01-51-6674lbfbjivysplwk (SYNTHROID) 25 mcg tablet Take 25 mcg by mouth. 0 08/24/2021 09/26/2023 Discontinued End: 34-57-2483zspw 3 tablets by mouth once dailylevothyroxine (Synthroid) 25 MCG tablet Take 75 mcg by mouth 1 (one) time each day at the same time05/06/2024 DiscontinuedComment on above:Take 25 mcg by mouth.Lovenox 40 mg/0.4 mL Injection (20 sources)Start: 39-91-2398ejvnod 40 mg by subcutaneous injection every twenty-four hoursLovenox 40 mg/0.4 mL Injection 40 mg, SubCutaneous, q24hr, # 7 EA, Refills(s) 0, Blood Thinner Start Date: 04/07/20 Status: Ordered Quantity: 7.0 Unit: EA Repeat number: 1Start: 40-82-7644rhfylz 40 mg by subcutaneous injection every twenty-four hoursLovenox 40 mg/0.4 mL Injection 40 mg, SubCutaneous, q24hr, # 7 EA, Refills(s) 0, Blood Thinner Start Date: 04/07/20 Status: Wokrzjt46 hr metFORMIN hydrochloride 500 mg extended release oral tablet (20 sources)BiguanideStart: 73-39-1149xmnHNNUCX XR (GLUCOPHAGE XR) 500 mg 24 hr tablet Take 500 AM and 1000 mg at night. 90 tablet 4 03/11/2025 ActiveStart: 01-19-2025 End: 37-82-4607xuxz 3 tablets by mouth every twenty-four hours at mealtime metFORMIN XR (Glucophage-XR) 500 MG 24 hr tablet Indications: Gestational diabetes mellitus (GDM), antepartum, gestational diabetes method of control unspecified ([facility]) Take 3 tablets (1,500 mg) by mouth in the evening. Take with meals Do not crush, chew, or split. 90 tablet 3 01/19/2025 ActiveStart: 01-01-2025 End: 44-07-1048hpyEJYJMD XR (GLUCOPHAGE XR) 500 mg 24 hr tablet Take 1500 mg at night. 90 tablet 4 01/01/2025 03/11/2025 DiscontinuedStart: 12-17-2024 End: 01-31-0031ezvZEKRNG XR (GLUCOPHAGE XR) 500 mg 24 hr tablet Take 1000 mg at night. 90 tablet 4 12/17/2024 01/01/2025 DiscontinuedStart: 05-13-2024 End: 30-27-5705dnbj 2 tablets by mouth every twenty-four hours at mealtime metFORMIN XR (Glucophage-XR) 500 MG 24 hr tablet Indications: Insulin resistance Take 2 tablets (1,000 mg) by mouth in the evening. Take with meals Do not crush, chew, or split. 60 tablet 11 05/13/2024 06/02/2024 DiscontinuedStart: 11-27-2023 End: 09-01-0907ifkm 1 tablet by mouth once dailymetFORMIN XR (Glucophage-XR) 500 MG 24 hr tablet Indications: Insulin resistance Take 1 tablet (500mg) by mouth 1 (one) time each day at the same time 30 tablet 11 09/18/2024 01/19/2025 DiscontinuedStart: 86-77-1915IllREPFHB (Eqv-Glucophage XR) 500 mg oral tablet, extended release 1,000 mg = 2 tab(s), Oral, Daily, Refills(s) 0 Start Date: 10/20/22 Status: Ordered Repeat number: 1Start: 03-26-2022 End: 51-69-3212ljbMFAFWR XR (GLUCOPHAGE XR) 500 mg 24 hr [...] tablet by mouth once daily.polyethylene glycol 3350 46783 mg powder for oral solution (20 sources)Osmotic Laxativepolyethylene glycol (GLYCOLAX) 17 gram packet Take 17 g by mouth in the morning. ActivePolyethylene Glycols (4 sources)polyethylene glycol 3350 (MIRALAX PO) Take by mouth. ActivePRENATAL 19 29 mg iron- 1 mg tablet,chewable (20 sources)Start: 85-79-7391BUZNZVOU 19 29 mg iron- 1 mg tablet,chewable Chew 1 tablet and swallow in the morning. 6 10/31/2018ActiveStart: 44-93-8303NIAQXTRA 19 29 mg iron- 1 mg tablet,chewable Chew 1 tablet and swallow daily. 6 10/31/2018 ActivePrenatal Vit-Fe Fumarate-FA ( PO) (1 source)Start: 83-27-0187Pwdqoakb Vit-Fe Fumarate-FA ( PO) Take 1 tablet by mouth 0 10/31/2018 Activeprogesterone 200 mg oral capsule (20 sources)Progesteronetake 1 capsule by mouth in the morningprogesterone (PROMETRIUM) 200 mg capsule Take 1 capsule (200 mg total) by mouth in the morning. ActiveProgesterone 200 MG suppository (6 sources)Start: 09-18-2024 End: 36-82-2253Kkgoyrohcxrk 200 MG suppository Indications: History of miscarriage Insert 200 mg into the vagina at bedtime Insert suppository vaginally every night at bedtime until 12 weeks gestation 30 suppository 3 09/18/2024 10/30/2024 Discontinued (Therapy completed)Start: 09-18-2024 End: 10-44-0683Bsuncwocfrvf 200 MG suppository Indications: History of miscarriage Insert 200 mg into the vagina at bedtime Insert suppository vaginally every night at bedtime until 12 weeks gestation 30 suppository 3 09/18/2024 12/17/2024 ActiveStart: 09-01-2024 End: 26-84-0980Inoqdiynbnyo 200 MG suppository Indications: History of miscarriage Insert 200 mg into the vagina at bedtime Insert suppository vaginally every night at bedtime until 12 weeks gestation 30 suppository 2 09/01/2024 11/30/2024 Activeprogesterone vaginal suppository 200 mg (CPD) (4 sources)progesterone vaginal suppository 200 mg (CPD) Use 200 mg vaginally. Unwrap and insert as directed. Activeterconazole 4 mg/ml vaginal cream (3 sources)Azole AntifungalStart: 06-23-2024 End: 66-10-4849rhrkjpdwlhc (Terazol 7) 0.4 % vaginal cream Indications: Vaginal discharge Insert 1 applicator intothe vagina at bedtime for 7 days 45 g 06/23/2024 06/30/2024 ActiveVentolin HFA 90 mcg/inh Aerosol-Adpt (1 source)Start: 09-07-2024 End: 01-70-3082cvrp 2 puff(s) by inhalation every six hours for wheezingVentolin HFA 90 mcg/inh Aerosol-Adpt 2 puff(s), Inhalation, q6hr for wheezing for 7 day(s), 8 gm, Refill(s) 0, [facility], 167, cm, 09/07/24 10:01:00 EDT, Height/Length Dosing, 96.4, kg, 09/07/24 10:01:00 EDT, Weight Dosing Start Date: 09/07/24 Stop Date: 09/14/24 Status: Ordered Quantity:8.0 Unit: g Repeat number: 1 Indication: Acute upper respiratory infection, unspecifiedVitamin D (20 sources)Start: 93-05-8585Xrymzdh D 2,000 International_Unit, Oral, qWeek, Refills(s) 0 Start Date: 08/03/23 Status: Ordered Repeat number: 1Start: 70-24-2796Jgbwvsv D 2,000 International_Unit, Oral, qWeek, Refills(s) 0 Start Date: 08/03/23 Status: Ordered Completed/Discontinued Medications MedicationDrug Class(es)DatesSig (Normalized)Sig (Original)aspirin 81 mg chewable tablet (5 sources)Platelet Aggregation Inhibitor, Nonsteroidal Anti-inflammatory Drug End: 33-53-1614qlupnkd 81 MG chewable tablet Chew 81 mg in the morning. 05/06/2024 Discontinued1 ml dexamethasone phosphate 4 mg/ml injection (1 source)CorticosteroidStart: 11-29-2023 End: 19-88-9520dmzRWWFFpjduy sodium phosphate 8 mg injection (DECADRON)3 ml insulin glargine 100 unt/ml pen injector (6 sources)Insulin AnalogStart: 12-03-2024 End: 90-40-8275pywsxow glargine (LANTUS SOLOSTAR U-100 INSULIN) 100 unit/mL (3 mL) insulin pen Prime with 2 units then inject 4 units SQ into abd 15 mL 3 12/03/2024 12/17/2024 Discontinued (Allergic response)insulin isophane, human 100 unt/ml injectable suspension (10 sources)Start: 12-26-2024 End: 00-78-7749thyf 8 [IU] by mouth once dailyinsulin NPH (HumuLIN N,NovoLIN N) 100 unit/mL injection Indications: Gestational diabetes mellitus (GDM) in second trimester controlled on oral hypoglycemic drug Inj sbq in abd 8 units nightly 10 mL 6 12/26/2024 02/06/2025 Discontinued (Patient Never Started This Medication)iron sucrose 300 mg in NaCl 0.9% 250 mL (VENOFER) (3 sources)Start: 11-29-2023 End: 99-10-8329rqgk sucrose 300 mg in NaCl 0.9% 250 mL (VENOFER)Start: 11-22-2023 End: 87-53-1385vohy sucrose 300 mg in NaCl 0.9% 250 mL (VENOFER)Start: 11-15-2023 End: 43-32-2753hfbn sucrose 300 mg in NaCl 0.9% 250 mL (VENOFER)multivitamin (MULTIPLE VITAMINS) tablet (7 sources)take 1 tablet by mouth once dailymultivitamin (MULTIPLE VITAMINS) tablet Take 1 tablet by mouth once daily. 0 ActiveComment on above:Take 1 tablet by mouth once daily.ondansetron 4 mg disintegrating oral tablet (4 sources)Serotonin-3 Receptor AntagonistStart: 04-14-2024 End: 39-22-9724krup 1 tablet by mouth every six hours for nauseaondansetron ODT (Zofran-ODT) 4 MG disintegrating tablet Indications: Nausea and vomiting in Take 1 tablet (4 mg) by mouth every 6 (six) hours if needed for nausea or vomiting 30 tablet 2 04/14/2024 05/06/2024 DiscontinuedStart: 03-07-2024 End: 63-79-5295rbxc 1 tablet by mouth every six hours as needed for nausea and vomiting and nausea and nauseaondansetron ODT (Zofran-ODT) 4 MG disintegrating tablet Indications: Nausea Take 1 tablet (4 mg) bymouth every 6 (six) hours if needed for nausea or vomiting 30 tablet 2 03/07/2024 04/06/2024 Active polysaccharide iron complex 391 mg oral capsule (20 sources)Start: 03-06-2022 End: 08-38-2245RBU FE 180 mg iron cap Problems Active Problems Problem ClassificationProblemDateDocumented DateEpisodic/ChronicAcute cerebrovascular disease (20 sources)Cerebral infarction; Translations: [Cerebral infarction, unspecified]Onset: 05-16-2019 Resolved: [id number] disorders (20 sources)Anxiety; Translations: [Anxiety disorder, unspecified]Onset: [id number] dysrhythmias (20 sources)Supraventricular tachycardia; Translations: [Supraventricular tachycardia]Onset: [id number]vq and hemorrhagic disorders (20 sources)Antiphospholipid syndrome; Translations: [Hypercoagulability state] Onset: [id number] and other anemia (20 sources)Iron 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; Translations: [Iron deficiency anemia secondary to blood loss (chronic)]Onset: 98-95-2254Cqxzemv Deficiency and other anemia (1 source)Iron deficiency anemia secondary to blood loss (chronic); Translations: [Iron deficiency anemia secondary to blood loss (chronic)]Onset: 36-53-5008XialvxxDlordxlg or abnormal glucose tolerance complicating ; childbirth; or the puerperium (20 sources)Gestational diabetes mellitus in , unspecified control; Translations: [Gestational diabetes mellitus in childbirth, unspecified control] Onset: 57-47-3309HncnsrybZpnfmnmaz of teeth and jaw (11 sources)Temporomandibular xhmgb-bumw-worhjyjvten syndrome; Translations: [Arthralgia of temporomandibular joint]Onset: 230910-53-9749Gayiqfwr Esophageal disorders (20 sources)Laryngopharyngeal reflux; Translations: [Gastro-esophageal reflux disease without esophagitis]Onset: 785893-24-5725SpwlqpaHiszrkvy; including migraine (2 sources)Sinus headache; Translations: [Sinus headache]95-73-1391SfdkttoeAkzs effects of cerebrovascular disease (20 sources)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; Translations: [Other speechand language deficits following cerebral infarction]Onset: 95-14-1874WyhldjqVhzhngdklj disorders (1 source)Hormone replacement therapy; Translations: [HORMONE REPLACEMENT THERAPY]Onset: 26-27-6539CobdbqzdUyfmnamdo disorders (20 sources)Irregular menstruation, unspecified; Translations: [Missed period] Onset: 55-39-3070VooblnqAudgawgcobpxi mental health disorders (20 sources)Psychogenic hyperventilation; Translations: [Other somatoform disorders]Onset: 803777-86-1972OpbikjuDuynmuxp sclerosis (1 source)Multiple sclerosis; Translations: [Multiple sclerosis]Onset: 19-03-5744GqndimcMjkvyisfkkb deficiencies (20 sources)Vitamin D deficiency; Translations: [Vitamin D deficiency, unspecified]Onset: 441478-82-6413YmnlarxEgqvr aftercare (1 source)Other medical terminologist (current) drug therapy; Translations: [OTH [facility] CURRENT DRUG THERAPY]Onset: 86-08-0084HcnqlgvnFbvhj aftercare (1 source)manager intermediate (current) use of oral hypoglycemic drugs; Translations: [[facility] USE ORAL HYPOGLYCEMIC DX]Onset: 36-70-1785ZgwphlrwJmgni aftercare (2 sources)H/O: miscarriage; Translations: [Encounter for other specified aftercare]07-03-3418TpchniciLnjuw circulatory disease (4 sources)History of cerebrovascular disease; Translations: [Personal history of transient ischemic attack (TIA), and cerebral infarction without residual deficits]Onset: 141220-26-9580PcuxamlhUopiw circulatory disease (3 sources)Personal history of transient ischemic attack (TIA), and cerebral infarction without residual deficits; Translations: [PERS HX TIA AND CI NO RESID DEFICIT]Onset: 57-95-5710BufadrhcWalqk circulatory disease (1 source)History of transient ischemic attack; Translations: [Personal history of transient ischemic attack (TIA), and cerebral infarction without residual deficits]65-21-1878JdgepirbTaxla complications of ; puerperium affecting management of mother (20 sources)Anemia in mother complicating childbirth; Translations: [Anemia complicating childbirth]Onset: 661839-98-9251XiinjthQowih complications of ; puerperium affecting management of mother (1 source)Other diseases of the blood and blood-forming organs and certain disorders involving the immune mechanism complicating childbirth; Translations: [OTH DZ BLD BFO IMMUN COMP CHILDBRTH]Onset: 92-17-8055ZialindwDlzwf complications of ; puerperium affecting management of mother (1 source)Endocrine, nutritional and metabolic diseases complicating childbirth; Translations: [ENDOCRN NUTR MET DZ COMP CHILDBIRTH]Onset: 66-78-5315Qpmlibnc Other complications of ; puerperium affecting management of mother (1 source)Streptococcus B carrier state complicating childbirth; Translations: [STREP B QUIROZ STATE COMP CHILDBIRTH]Onset: 99-52-4301VjmzbmcaYezlt complications of (20 sources)Iron deficiency anemia of ; Translations: [Anemia complicating , unspecified trimester]Onset: 97-21-0611UmclqhaCxrsi complications of (1 source)Endocrine, nutritional and metabolic diseases complicating , third trimester; Translations: [ENDOCRN NUTR MET DZ COMP PG 3RD TRI]Onset: 37-68-5979VgzuxyrcXdoba complications of (5 sources)Supervision of elderly multigravida, third trimester; Translations: [SUP ELDER MULTIGRAVIDA THIRD TRI]Onset: 20-57-9411AnzgwkipQazkc complications of (1 source)Other diseases of the blood and blood-forming organs and certain disorders involving the immune mechanism complicating , third trimester; Translations: [OTH DZ BLD BFO IMMN COMP PG 3RD TRI]Onset: 05-04-2022 EpisodicOther complications of (1 source)Maternal care for excessive growth, third trimester, not applicable or unspecified; Translations: [MAT CARE EXCSS FTL GRTH 3RD TRI UNS] Onset: 15-98-3344KbvbdzzwGtaea complications of (20 sources)History of with abortive outcome; Translations: [Supervision of with other poorreproductive or obstetric history, second trimester]Onset: 785617-19-6000VlunxmhuDwcom complications of (3 sources)Hypothyroidism in ; Translations: [Endocrine, nutritional and metabolic diseases complicating , second trimester]01-02-2025 EpisodicOther ear and sense organ disorders (20 sources)Otitis externa of right ear; Translations: [Unspecified otitis externa, right ear]Onset: 92-76-1976FpriissCjhso ear and sense organ disorders (7 sources)Otitis -09-1984IzsdcwbJunpe endocrine disorders (20 sources)Hypoglycemia; Translations: [Hypoglycemia, unspecified]Onset: 296325-96-1590TrjtuwdAumoo female genital disorders (2 sources)Vaginal bleeding; Translations: [Abnormal uterine and vaginal bleeding, unspecified]16-19-1514LcoajbbNguzv female genital disorders (4 sources)Vaginal discharge; Translations: [Other specified noninflammatory disorders of vagina]74-06-2227AissafhoTtvxx hematologic conditions (1 source)H/O: blood disorder; Translations: [Personal history of diseases of the blood and blood-forming organs and certain disorders involving the immune mechanism]Onset: 19-71-4694SoutchkfAswah lower respiratory disease (9 sources)Hmtai08-73-5209BtctpsipQwtvz nervous system disorders (1 source)Idiopathic progressive neuropathy; Translations: [Idiopathic progressive neuropathy]Onset: 19-93-8324CjxpushCmqnh nervous system disorders (20 sources)Neuropathy; Translations: [Idiopathic progressive neuropathy]Onset: 930513-89-3002QweqvtbDjwbr nervous system disorders (3 sources)Paresthesia; Translations: [Paresthesia of skin]Onset: 05-16-2019 EpisodicOther nervous system disorders (9 sources)Muscle -09-7853XakuzdfnLkowp nervous system disorders (6 sources)Facial vxpfoaimbbw10-10-1258OfkaklcxIxbne nutritional; endocrine; and metabolic disorders (10 sources)Obese class II; Translations: [Body mass index (BMI) 36.0-36.9, adult]Onset: 52-74-6716TivjknvRrerc nutritional; endocrine; and metabolic disorders (20 sources)Obesity; Translations: [Other obesity]Onset: 941441-87-6859 ChronicOther nutritional; endocrine; and metabolic disorders (20 sources)Morbid obesity; Translations: [Morbid (severe) obesity due to excess calories]Onset: 51-25-2147ErjmklsRejdp nutritional; endocrine; and metabolic disorders (3 sources)Hypercalcemia; Translations: [Hypercalcemia]45-60-4580IebycjcGijra nutritional; endocrine; and metabolic disorders (20 sources)Body mass index 30+ - obesity; Translations: [Body mass index (BMI) 37.0-37.9, adult]Onset: 259130-36-1213TtufarjUaxes nutritional; endocrine; and metabolic disorders (1 source)Obese class I; Translations: [Body mass index (BMI) 34.0-34.9, adult] Onset: 40-72-3820OibacfuNxcrq nutritional; endocrine; and metabolic disorders (1 source)H/O: Disorder; Translations: [Personal history of other endocrine, nutritional and metabolic disease]Onset: 33-46-6381AbxzamfwAkgwe nutritional; endocrine; and metabolic disorders (2 sources)H/O: thyroid disorder; Translations: [Personal history of other endocrine, nutritional and metabolic disease]57-22-7171GemqzlioJitxy screening for suspected conditions (not mental disorders or infectious disease) (12 sources)Encounter for screening for malignant neoplasm of cervix; Translations: [Encounter for screening for diabetes mellitus]Onset: 10-28-2021 EpisodicOther skin disorders (1 source)Podopompholyx; Translations: [Dyshidrosis [pompholyx]]Onset: 42-55-9790JdprpcueZhhqt upper respiratory disease (20 sources)Allergy to -98-2163MdzcyqjNhqzp upper respiratory disease (1 source)Polyp of nasal sinus; Translations: [Nasal polyp, unspecified]Onset: 57-84-6265UgqszlfaTnepn upper respiratory infections (8 sources)Chronic sinusitis; Translations: [Chronic sinusitis, unspecified] Onset: 60-34-7812JztchozKkdydhtx codes; unclassified (1 source)Sleep disorder; Translations: [Other sleep disorders]Onset: 10-20-2022 ChronicResidual codes; unclassified (20 sources)Obstructive sleep apnea syndrome; Translations: [Obstructive sleep apnea (adult) (pediatric)]Onset: 164482-53-7591PtioetiGrxxtzwk codes; unclassified (8 sources)Patient encounter status; Translations: [Other specified health status]Onset: 12-97-3861HxxaztirPdlzaqkz codes; unclassified (1 source)39 weeks gestation of ; Translations: [39 WEEKS GESTATION OF ]Onset: 12-32-7783NfoxpruoFmkgpndo codes; unclassified (1 source)Family history of diabetes mellitus; Translations: [FAMILY HISTORY OF DIABETES MELLITUS]Onset: 60-78-1020XumgyutvNfgbatwr codes; unclassified (1 source)Family history of stroke; Translations: [FAMILY HISTORY OF STROKE] Onset: 22-17-7969ZqvdrwqjUmzvckoy codes; unclassified (1 source)38 weeks gestation of ; Translations: [38 WEEKS GESTATION OF ]Onset: 17-10-8552TmqpggbdUzjcjdsg codes; unclassified (1 source)37 weeks gestation of ; Translations: [37 WEEKS GESTATION OF ]Onset: 59-93-6037HqavqaksNoywiuya codes; unclassified (1 source)35 weeks gestation of ; Translations: [35 WEEKS GESTATION OF ]Onset: 05-22-2186EbpcyaejIdgfvvij codes; unclassified (1 source)34 weeks gestation of ; Translations: [34 WEEKS GESTATION OF ]Onset: 90-97-4406CgdviceiCjtvyfry codes; unclassified (1 source)33 weeks gestation of ; Translations: [33 WEEKS GESTATION OF ]Onset: 04-95-3375ExszfptuKeohbdkq codes; unclassified (1 source)32 weeks gestation of ; Translations: [32 WEEKS GESTATION OF ]Onset: 36-18-3190KuunarbsIhfsaeiv codes; unclassified (1 source)31 weeks gestation of ; Translations: [31 WEEKS GESTATION OF ]Onset: 72-54-8317HkdtypbgQkmzmwiq codes; unclassified (20 sources)Sleep czysmobe01-34-5208ZmlndqxnIrsozkjf codes; unclassified (1 source)Localized edema; Translations: [Localized edema]Onset: 11-09-2023 EpisodicResidual codes; unclassified (2 sources)Gestation period, 14 weeks; Translations: [14 weeks gestation of ]97-15-5136SsurctbwJwgpkcyv codes; unclassified (2 sources)Gestation period, 13 weeks; Translations: [13 weeks gestation of ]59-64-4073OmwzybipXwtufgaz codes; unclassified (2 sources)Gestation period, 16 weeks; Translations: [16 weeks gestation of ]15-41-1511LlnctzswAubbocbo codes; unclassified (2 sources)Gestation period, 19 weeks; Translations: [19 weeks gestation of ]32-70-4593HmtufdpyClsgiiyz codes; unclassified (3 sources)Gestation period, 22 weeks; Translations: [22 weeks gestation of ]29-03-2651LmmjzttbLgnwaqwo codes; unclassified (3 sources)Family history of autism; Translations: [Family history of other mental and behavioral disorders]74-42-3513LnwliiryDihuhnjl codes; unclassified (2 sources)Gestation period, 23 weeks; Translations: [23 weeks gestation of ]20-70-7780RcwyestyUxlwodod codes; unclassified (2 sources)Gestation period, 25 weeks; Translations: [25 weeks gestation of ]04-04-7059KajkdrkoMvguloyo codes; unclassified (1 source)Gestation period, 27 weeks; Translations: [27 weeks gestation of ]20-99-0397MofsvulrDfkrnszp codes; unclassified (1 source)22 weeks gestation of ; Translations: [22 weeks gestation of ]Onset: 36-10-8845UpdaamcuDbkvmjjm codes; unclassified (2 sources)Gestation period, 28 weeks; Translations: [28 weeks gestation of ]41-67-5100XqxmcrlsAckalqid codes; unclassified (1 source)Gestation period, 29 weeks; Translations: [29 weeks gestation of ]94-28-2876SfrxmaelJnuimclv codes; unclassified (2 sources)Gestation period, 30 weeks; Translations: [30 weeks gestation of ]74-77-3982VcqxatdqRybgvvo disorders (20 sources)Hypothyroidism; Translations: [Hypothyroidism, unspecified]Onset: 850253-90-5936YkfehlzZqxacwl disorders (20 sources)Disorder of thyroid, unspecified; Translations: [Disorder of thyroid gland]Onset: 294153-71-4351TvayponxXrqricvfn cerebral ischemia (1 source)Transient cerebral ischemia; Translations: [Transient cerebral ischemic attack, unspecified]Onset: 168738-63-1415QpewpuoMzibqlxgknhr (20 sources)History of GLZX-YeN-566-11-2022Unclassified (20 sources)Inhalation yrecua44-29-7699Tlatkowkxvcy (20 sources)Fbr-ajvhhe42-10eabbmw25-28-3229Wsqoznsvlgiy (1 source)CONTACT W/AND (SUSP) EXPOS COVID-19; Translations: [CONTACT W/AND (SUSP) EXPOS COVID-19]Onset: 30-19-2883Dmqzafqeebho (15 sources)Patient encounter agzrxm56-35-8832Hcugyyqoecxd (1 source)MFM consultOnset: 37-72-3544Agmvtdpxfkbl (1 source)Gestational DiabetesOnset: 34-04-1919Syrcm infection (20 sources)Viral vwkrivo92-71-3001Ribekjja Past or Other Problems Problem ClassificationProblemDateDocumented DateEpisodic/ChronicAbdominal pain (20 sources)Abdominal pain; Translations: [Pain in pelvis]Onset: 02-01-2019 55-29-0126CbghviqeAnpjw bronchitis (20 sources)Acute infective bronchitis; Translations: [Acute bronchitis due to other specified organisms]Onset: 549009-55-9068LjtpvjgfXvfxr posthemorrhagic anemia (20 sources)Acute posthemorrhagic anemia; Translations: [Acute posthemorrhagic anemia]Onset: 814675-72-6104FnwnnxfsMopzpibg reactions (20 sources)Other allergy status, other than to drugs and biological substances; Translations: [Akwey-zn-bjicyxi vesicular eczema of hands and feet]Onset: 83-35-8601KvpzcbprMhcjlthqt infection; unspecified site (20 sources)Bacterial infectious disease; Translations: [Other bacterial infections of unspecified site]Onset: 369509-12-2163FnymmpafTktdvdzj of urinary tract (20 sources)History of calculus of kidney; Translations: [Personal history of urinary calculi]Onset: 410486-98-5104LrmyqmcxMvfhoui dysrhythmias (20 sources)Palpitations; Translations: [Palpitations]Onset: 08-26-2019 80-48-4447ArvaaqqwBjysjikoqq associated with dizziness or vertigo (20 sources)Dizziness; Translations: [Dizziness and giddiness]Onset: 02-05-2019 68-64-1390HwoxehcrOrwvrfhsfc and other anemia (20 sources)Anemia; Translations: [Anemia, unspecified]Onset: 57-22-0439Smjgstjf Diabetes mellitus without complication (20 sources)Prediabetes; Translations: [Prediabetes]Onset: 34-73-2705Jjbnttls Diseases of mouth; excluding dental (20 sources)Xerostomia; Translations: [Dry mouth, unspecified]Onset: 12-22-2022 EpisodicFluid and electrolyte disorders (20 sources)Cerebral hyponatremia; Translations: [Hypo-osmolality and hyponatremia]Onset: 97-44-6660PvevjlluPdbpxpsiburiteoq hemorrhage (20 sources)Hematochezia; Translations: [Blood-tinged feces]Onset: 06-12-2023 23-79-5498UligpxfxKwuiblvlipxyd symptoms and ill-defined conditions (20 sources)Genitourinary symptoms; Translations: [Unspecified symptoms and signs involving the genitourinary system]Onset: 65-40-2618QqyeiovuBdrlceja; including migraine (20 sources)Migraine without aura, not refractory ; Translations: [Migraine without aura, not intractable, without status migrainosus]Onset: 09-12-2017 Resolved: 692081-86-8498AtphxdgYjyqxrnjrfylo and screening for infectious disease (20 sources)Antibody studies abnormal; Translations: [Raised antibody titer] Onset: 315532-59-9467PycwnavyUywgmdi and fatigue (20 sources)Fatigue; Translations: [Other fatigue]Onset: EpisodicMycoses (20 sources)Candidiasis of vagina Resolved: 498641-27-3209UexvdjaaRlkpzpzugrn deficiencies (20 sources)Vitamin B deficiency; Translations: [Deficiency of other specified B group vitamins]Onset: 310005-46-7328IlhmjyhdYK-yhqpbzf trauma to perineum and vulva (20 sources)First degree perineal tear during delivery - delivered; Translations: [First degree perineal laceration during delivery]Onset: 024222-31-0863GketinqjCzrfd aftercare (20 sources)Long-term current use of anticoagulant; Translations: [manager intermediate (current) use of anticoagulants]Onset: 622549-22-6243EjfmoemiFbyta aftercare (20 sources)Long-term current use of drug therapy; Translations: [halfway (current) use of 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/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]Onset: EpisodicOther circulatory disease (20 sources)History of cerebrovascular accident; Translations: [Personal history of transient ischemic attack (TIA), and cerebral infarction without residual deficits]Onset: 411419-40-7755XnreieurThjgzeu on above:reported by pt - related to antiphospholipid syndromeOther circulatory disease (20 sources)Elevated blood-pressure reading without diagnosis of hypertension; Translations: [Elevated blood-pressure reading, without diagnosis of hypertension]Onset: 509331-79-2808GritxnhmZhqjy circulatory disease (20 sources)Elevated blood pressure; Translations: [Elevated blood-pressure reading, without diagnosis of hypertension]Onset: 141010-51-9053Prlidddb Other complications of ; puerperium affecting management of mother (20 sources) problem; Translations: [Unspecified disorders of ]Onset: 453817-49-5769LeijxriuBrowt complications of ; puerperium affecting management of mother (1 source)Endocrine, nutritional and metabolic disease complicating , childbirth and puerperium; Translations: [Endocrine, nutritional and metabolic diseases complicating childbirth]Onset: 898409-99-3182NnmrjsjvPcpzg complications of ; puerperium affecting management of mother (1 source)Complication of , childbirth and/or the puerperium; Translations: [Other diseases of the blood and blood-forming organs and certain disorders involving the immune mechanism complicating childbirth]Onset: 944079-85-3316JoktxvuhYlxvx complications of ; puerperium affecting management of mother (20 sources) hemorrhage; Translations: [Other immediate hemorrhage]Onset: 002440-50-3118UjmwpfuxKxpbj complications of (1 source)Vomiting of ; Translations: [Vomiting of , unspecified]Onset: 974472-62-3593JgiclpkgSokvh complications of (20 sources)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; Translations: [Maternal care for (suspected) chromosomal abnormality in fetus, not applicable or unspecified]Onset: 067300-75-1985OsdazxnmZyhug complications of (4 sources)Other specified related conditions, third trimester; Translations: [OTH SPEC PREG RELATEDCOND 3RD TRI]Onset: 39-37-6927MpaxbaseKprbe complications of (20 sources)Antiphospholipid syndrome; Translations: [Other diseases of the blood and blood-forming organs and certain disorders involving the immune mechanism complicating , unspecified trimester]Onset: 07-07-2019 71-21-8130FjcrrkbxKxxzc complications of (20 sources)Multigravida of advanced maternal age; Translations: [Supervision of elderly multigravida, second trimester]Onset: 955862-35-1861XrrrgwagNycjw complications of (2 sources)Other diseases of the blood and blood-forming organs and certain disorders involving the immune mechanism complicating , unspecified trimester; Translations: [Other diseases of the blood andblood-forming organs and certain disorders involving the immune mechanism complicating , un specified trimester]Onset: 44-86-5630GwcutfrpAkcqh complications of (1 source)Supervision of elderly multigravida, second trimester; Translations: [Supervision of elderly multigravida, second trimester]Onset: 33-39-4502Cjdibtjl Other ear and sense organ disorders (20 sources)Referred otalgia of right ear; Translations: [Otalgia, right ear] Onset: 880697-69-4727ImwpuvdiNoprq female genital disorders (20 sources)Noninflammatory disorder of the vagina; Translations: [Other specified noninflammatory disorders ofvagina]Onset: 725212-40-7915Mzucdcjk Other female genital disorders (20 sources)Disorder of female reproductive system; Translations: [Unspecified condition associated with femalegenital organs and menstrual cycle]Onset: 410795-48-3132YvhilhjgCchdx female genital disorders (1 source)Other specified noninflammatory disorders of vagina; Translations: [OTH SPEC NONINFLAMMATORY D/O VAGINA]Onset: 19-32-3740JatwktagTkaol female genital disorders (14 sources)Pelvic and perineal pain; Translations: [Pelvic and perineal pain] Onset: 874495-75-5995AygpcklxUkqqt hematologic conditions (20 sources)H/O: anemia - iron deficient; Translations: [Personal history of diseases of the blood and blood-forming organs and certain disorders involving the immune mechanism]Onset: 933192-37-7807GgjdqjaiFljmq infections; including parasitic (20 sources)Personal history of other infectious and parasitic diseases; Translations: [History of COVID-19]Onset: 308711-29-5896OrdfqlabUhvat inflammatory condition of skin (1 source)Itching of skin; Translations: [Pruritus, unspecified]Onset: 766708-72-5396ZhqbcolzOvniz inflammatory condition of skin (20 sources)Pruritus, unspecified; Translations: [Unspecified pruritic disorder] Onset: 443730-10-4819CpzoktvvVusdv injuries and conditions due to external causes (20 sources)Inhalation injury; Translations: [Injury, unspecified, initial encounter]Onset: 785571-24-5815RutfcfnjSkkal lower respiratory disease (20 sources)Dyspnea; Translations: [Dyspnea, unspecified]Onset: 06-12-2023 78-72-4595QoovdyjdSkcyx lower respiratory disease (20 sources)H/O: asthma; Translations: [Personal history of other diseases of the respiratory system]Onset: 688743-12-9764WysxpjjeQxnlt lower respiratory disease (20 sources)Snoring; Translations: [Snoring]Onset: 56-53-7560YtgqejzuDapwe nervous system disorders (20 sources)Muscle fasciculation; Translations: [Fasciculation]Onset: 08-19-2021 EpisodicOther nervous system disorders (20 sources)Paresthesia of lower extremity; Translations: [Paresthesia of skin] Onset: 952454-40-0470FrtixolyWkgpz nervous system disorders (20 sources)Acute postoperative pain; Translations: [Other acute postprocedural pain]Onset: 001128-10-0364BfkwvbmuAutuq non-traumatic joint disorders (20 sources)Joint pain; Translations: [Pain in unspecified joint]Onset: 533070-78-6735GslqpzrmNdnvz nutritional; endocrine; and metabolic disorders (20 sources)H/O: hypothyroidism; Translations: [Personal history of other endocrine, nutritional and metabolic disease]Onset: 820527-86-1723Lthontoz Other and delivery including normal (20 sources)Normal ; Translations: [Encounter for supervision of normal , unspecified, first trimester]Onset: 441611-47-1524Scsaexem Other skin disorders (20 sources)Epdxb-tv-symzeyp vesicular eczema of hands and feet; Translations: [Dyshidrosis [pompholyx]]Onset: 183691-99-7948YuvmfuhhIccnd upper respiratory disease (20 sources)Deviated nasal septum; Translations: [Deviated nasal septum]Onset: 67-30-9900WqwauakdJxcfa upper respiratory disease (20 sources)Polyp of nasal cavity and/or nasal sinus; Translations: [Nasal polyp, unspecified]Onset: 944092-73-1304VznljsuxBtsjt upper respiratory infections (20 sources)Acute upper respiratory infection Resolved: 461543-95-7493VxsjbhxtMiazml media and related conditions (20 sources)Dysfunction of eustachian tube; Translations: [Disorder of right Eustachian tube]Onset: 335701-65-8456TbfhakrjQttiwda cyst (20 sources)Cyst of ovary; Translations: [Cyst of right ovary]Onset: 02-06-2019 08-67-2152SvvmwkowBrsxhnae codes; unclassified (20 sources)Family history of female genital tract disorder Resolved: 005458-62-7810ToazfupxOslimgtm codes; unclassified (20 sources)FH: Anemia Resolved: 728267-42-1676LwusizuoHvhoogzd codes; unclassified (20 sources)First trimester ; Translations: [Less than 8 weeks gestation of ]Onset: 565672-46-4160GfgiajmaAoqubmkh codes; unclassified (20 sources)Gestation period, 32 weeks; Translations: [32 weeks gestation of ]Onset: 667284-53-7791UstgterxRpsftzis codes; unclassified (1 source)Gestation period, 33 weeks; Translations: [33 weeks gestation of ]Onset: 607905-60-6913EdqrrrceOrfriomq codes; unclassified (1 source)Gestation period, 34 weeks; Translations: [34 weeks gestation of ]Onset: 080472-62-8356QabvmjodMjnohzrp codes; unclassified (1 source)Gestation period, 35 weeks; Translations: [35 weeks gestation of ]Onset: 677486-72-3996JmmrdgylAjmazwbv codes; unclassified (1 source)Gestation period, 36 weeks; Translations: [36 weeks gestation of ]Onset: 795084-74-7080YwcdrifuYbrawudh codes; unclassified (1 source)Gestation period, 37 weeks; Translations: [37 weeks gestation of ]Onset: 225351-81-8162VbvxsqvdCgkklhir codes; unclassified (1 source)Gestation period, 38 weeks; Translations: [38 weeks gestation of ]Onset: 123522-93-9838BkudskwsYtufaqix codes; unclassified (1 source)Gestation period, 39 weeks; Translations: [39 weeks gestation of ]Onset: 568533-64-6964SckjqfezEfxyrpha codes; unclassified (20 sources)Other general symptoms and signs; Translations: [Other general symptoms]Onset: 687727-45-0738KonjbiqrSsyltrdi codes; unclassified (1 source)Unspecified blood type, Rh negative; Translations: [UNSPECIFIED BLOOD TYPE RH NEGATIVE]Onset: 29-02-5395KbbitesoVihbxghp codes; unclassified (1 source)28 weeks gestation of ; Translations: [28 WEEKS GESTATION OF ]Onset: 02-04-8360KpxhbkymVzwkcgmx codes; unclassified (20 sources)Intolerant of cold; Translations: [Other general symptoms and signs] Onset: 621866-57-3864PbwlsmqqEwncnxmk codes; unclassified (20 sources)Non-smoker; Translations: [Other specified health status]Onset: 401630-33-3723LhmlglweOkgeswjs codes; unclassified (20 sources)Swelling of salivary gland; Translations: [Localized edema]Onset: 684190-40-5610HadchwyfAgenfruyjhz; intervertebral disc disorders; other back problems (20 sources)Neck pain; Translations: [Cervicalgia]Onset: EpisodicSpontaneous (20 sources)Miscarriage Resolved: 013376-35-2888UnvpipeqSxbcnke (20 sources)Syncope and collapse; Translations: [Syncope and collapse]Onset: 404339-59-8851KlnstsbgLjwagfayorcx (20 sources)PregnancyOnset: 02-20-2007 Resolved: 294797-39-8613Fvhnzmidutwk (20 sources)Suspected disease caused by 3355-wTwX71-68oIeB43-32-6504Umzrjmbrqlri (1 source)Exposure to 2019 novel coronavirus; Translations: [Contact with and (suspected) exposure to COVID19]Urinary tract infections (20 sources)Infective urethritis; Translations: [Other urethritis]Onset: 37-32-0017Qtlajrho Results Test NameValueInterpretationReference RangeFacilityUS OB BPP W NON-STRESS on 51-30[place] [address] Ultrasound Report Signed Patient: SANNA RENDON MR#: [id number] : 1985 Acct:[id number] Age/Sex: 39 / F ADM Date: 03/05/25 Loc: US Attending Dr: Wilton Herrmann D.O. Ordering Physician: Wilton Herrmann D.O. Date of Service: 03/05/25 Procedure(s): US OB BPP w non-stress Accession Number(s): [id number] cc: Wilton Herrmann D.O.; Physician,Non-Staff M.DLazara The [place] [id number] Patient Name: SANNA RENDON MRN: [facility]:[id number] date: 1985 Sex: F Assigned Patient Location: [facility] Current Patient Location: Accession/Order Number: [id number] Exam Date: 03/05/2025 19:15 Report Date: 03/06/2025 [...] Pisano M.D. 03/06/2025 8:10 AM Dictation Location: [place] [address] Electronically authenticated by: [id number] Y Date: 03/06/2025 08:10 Dictated By: Pamela Pisano M.D. Signed By: 03/06/2513 DD/ 9 TD/TT: Fuel Cell Systems Engineer:ELVERadiology, Radiologist, - 03/06/2025 [place] [address] Ultrasound Report Signed Patient: SANNA RENDON MR#: [id number] : 1985 Acct:[id number] Age/Sex: 39 / F ADM Date: 03/05/25 Loc: US Attending Dr: Wilton Herrmann D.O. Ordering Physician: Wilton Herrmann D.O. Date of Service: 03/05/25 Procedure(s): US OB BPP w non-stress Accession Number(s): [id number] cc: Wilton Herrmann D.O.; Physician,Non-Staff [place] [address] Patient Name: SANNA RENDON MRN: [facility]:[id number] date: 1985 Sex: F Assigned Patient Location: [facility] Current Patient Location: Accession/Order Number: [id number] Exam Date: 03/05/2025 19:15 Report Date: 03/06/2025 [...] Pisano M.D. 03/06/2025 8:10 AM Dictation Location: [place] [address] Electronically authenticated by: [id number] Y Date: 03/06/2025 08:10 Dictated By: Pamela Pisano M.D. Signed By: 03/06/25812 DD/ 9 TD/TT: Fuel Cell Systems Engineer: SHILOH HealthcareRadiology Study observation (narrative)NOM[facility] HealthcareUS OB BPP W NON-STRESSOrdered By: Radiologist Radiology on 09-76-8139ERPHSSM Health Care Work Phone: [phone]([place])D3 [facility] 273496-exwhcnuofgskcj D3 [Mass/Vol]54.6 ng/mRBpjxji92.0-80.0[facility] on above: Order Comment: Specimen Type: BLOOD SPECIMENOrdering Facility: [facility] Address:[address] [place], [place] [address]Performed By: #### 1989-3 ####[facility] LABCLIA [id number] [address] Auto Differential panel (Bld)on 03-02-2025 Basophils (Bld) [#/Vol]0.03 10*3/uLNormal<0.11CUC Medical CenterComment on above:Order Comment: Specimen Type: BLOOD SPECIMENOrdering Facility: [facility] Address:[address] [place] [address] Performed By: #### 50820-1 ####[facility] LABCLIA [id number] [place], [place] [address]Pijwscpsi/100 WBC (Bld)0.3 % NormalLima City Hospital on above:Order Comment: Specimen Type: BLOOD SPECIMENOrdering Facility: [facility] Address:[address] [place], [place] [address]Performed By: #### 76858-3 ####[facility] LABCLIA [id number] [place] [address] Differential cell count method Nom (Bld)AutoNormalCUC Medical Center Comment on above:Order Comment: Specimen Type: BLOOD SPECIMENOrdering Facility: [facility] Address:[address] [place] [address] Performed By: #### 11255-9 ####[facility] LABCLIA [id number] [place], [place] [address]Wvuoxuvhuzz (Bld) [#/Vol]0.06 10*3/uLNormal<0.46[facility] on above:Order Comment: Specimen Type: BLOOD SPECIMENOrdering Facility: [facility] Address:[address] [place], [place] [address]Performed By: #### 11597-0 ####[facility] LABCLIA [id number] [place], [place] [address]Dvomhoaoipy/100 WBC (Bld)0.7 %NormalLima City Hospital on above:Order Comment: Specimen Type: BLOOD SPECIMENOrdering Facility: [facility] Address:[address] [place], [place] [address]Performed By: #### 45985-5 ####[facility] LABCLIA [id number] [place], [place] [address]Povzuapljeh distribution width (RBC) [Ratio]13.3 %Bjkjia42.5-15.0[facility] on above: Order Comment: Specimen Type: BLOOD SPECIMENOrdering Facility: [facility] Address:[address] [place], [place] [address]Performed By: #### 24446- 8 ####[facility] LABIA [id number] [place], [place] [address]Kopzhdfkhb (Bld) [Volume fraction]33.0 %Low36.0-46.0 [facility] on above:Order Comment: Specimen Type: BLOOD SPECIMENOrdering Facility: [facility] Address:[address] [place], [place] [address]Performed By: #### 53225-7 ####[facility] LABIA [id number] [place], [place] [address]Ytydccwvim (Bld) [Mass/Vol]11.6 g/pMDtklxi82.5-15.5CTrumbull Regional Medical Center on above: Order Comment: Specimen Type: BLOOD SPECIMENOrdering Facility: [facility] Address:[address] [place], [place] [address]Performed By: #### 82347- 8 ####[facility] LABCLIA [id number] [place], [place] [address]Uvaxruwx granulocytes (Bld) [#/Vol]0.04 10*3/uLNormal <0.10[facility] on above:Order Comment: Specimen Type: BLOOD SPECIMENOrdering Facility: [facility] Address:[address] [place], [place] [address]Performed By: #### 44008-4 ####[facility] LABCLIA [id number] [place], [place] [address]Pay[place] granulocytes/100 WBC (Bld)0.5 %NormalLima City Hospital on above: Order Comment: Specimen Type: BLOOD SPECIMENOrdering Facility: [facility] Address:[address] [place], [place] [address]Performed By: #### 02041- 8 ####[facility] LABCLIA [id number] [place], [place] [address]Tdgansjynom (Bld) [#/Vol]2.31 10*3/uLNormal1.00-4.00 [facility] on above:Order Comment: Specimen Type: BLOOD SPECIMENOrdering Facility: [facility] Address:[address] [place], [place] [address]Performed By: #### 90302-0 ####[facility] LABCLIA [id number] [place], [place] [address]Ndhonyoduqh/100 WBC (Bld)26.7 %NormalLima City Hospital on above:Order Comment: Specimen Type: BLOOD SPECIMENOrdering Facility: [facility] Address:[address] [place], [place] [address]Performed By: #### 08695-5 ####[facility] LABCLIA [id number] [place], [place] [address]EDJ (RBC) [Entitic mass]31.3 olWpjbyr61.0-34.0[facility] on above:Order Comment: Specimen Type: BLOOD SPECIMENOrdering Facility: [facility] Address:[address] [place], [place] [address]Performed By: #### 58353-8 ####[facility] LABCLIA [id number] [place], [place] [address]JFJT (RBC) [Mass/Vol]35.2 g/gTQdimyt91.5-36.0[facility] on above: Order Comment: Specimen Type: BLOOD SPECIMENOrdering Facility: [facility] Address:[address] [place], [place] [address]Performed By: #### 56038- 8 ####[facility] LABCLIA [id number] [place], [place] [address]BDR (RBC) [Entitic vol]88.9 gJEyyder29.0-100.0[facility] on above:Order Comment: Specimen Type: BLOOD SPECIMENOrdering Facility: [facility] Address:[address] [place], [place] [address]Performed By: #### 42807-1 ####[facility] LABIA [id number] [place], [place] [address]Xthhhbhvl (Bld) [#/Vol]0.63 10*3/uLNormal<0.87[facility] on above:Order Comment: Specimen Type: BLOOD SPECIMENOrdering Facility: [facility] Address:[address] [place], [place] [address]Performed By: #### 73289- 8 ####[facility] LABCLIA [id number] [place], [place] [address]Omqpwkicp/100 WBC (Bld)7.3 %NormalLima City Hospital on above:Order Comment: Specimen Type: BLOOD SPECIMENOrdering Facility: [facility] Address:[address] [place], [place] [address]Performed By: #### 47607-2 ####[facility] LABCLIA [id number] [place], [place] [address]Axevjbjkgry (Bld) [#/Vol]5.57 10*3/uLNormal1.45-7.50[facility] on above:Order Comment: Specimen Type: BLOOD SPECIMENOrdering Facility: [facility] Address:[address] [place], [place] [address]Performed By: #### 72991-6 ####[facility] LABCLIA [id number] [place], [place] [address]Lawvpuhqada/100 WBC (Bld)64.5 %NormalLima City Hospital on above:Order Comment: Specimen Type: BLOOD SPECIMENOrdering Facility: [facility] Address:[address] [place], [place] [address]Performed By: #### 36851-5 ####[facility] LABCLIA [id number] [place], [place] [address]Osjhovgjr RBC (Bld) [#/Vol] 10*3/uLNormal<0.01[facility] on above:Order Comment: Specimen Type: BLOOD SPECIMENOrdering Facility: [facility] Address:[address] [place], [place] [address]Performed By: #### 22905-8 ####[facility] LABCLIA [id number] [place], [place] [address]Qzjqxibir RBC/100 WBC (Bld) [Ratio]0.0 /100 WBCNormal [facility] on above:Order Comment: Specimen Type: BLOOD SPECIMENOrdering Facility: [facility] Address:[address] [place], [place] [address]Performed By: #### 38257-3 ####[facility] LABIA [id number] [place], [place] [address]Kcmypqhl mean volume (Bld) [Entitic vol]9.4 fLNormal9.0-12.7CTrumbull Regional Medical Center on above:Order Comment: Specimen Type: BLOOD SPECIMENOrdering Facility: [facility] Address:[address] [place] [address] Performed By: #### 95533-2 ####[facility] LABCLIA [id number] [place], [place] [address]Qolifkyaa (Bld) [#/Vol]257 10*3/aZEmirsv130-413RdpspwbivLima City Hospital on above:Order Comment: Specimen Type: BLOOD SPECIMENOrdering Facility: [facility] Address:[address] [place], [place] [address]Performed By: #### 16674-4 ####[facility] LABIA [id number] [place], [place] [address]RIC (Bld) [#/Vol]3.71 10*6/uLLow3.90-5.20[facility] on above:Order Comment: Specimen Type: BLOOD SPECIMENOrdering Facility: [facility] Address:[address] [place], [place] [address]Performed By: #### 26945-9 ####[facility]ITAL[facility] [id number] [place], [place] [address]OCR (Bld) [#/Vol]8.64 10*3/uL Normal3.70-11.00[facility] on above:Order Comment: Specimen Type: BLOOD SPECIMENOrdering Facility: [facility] Address:[address] [place], [place] [address]Performed By: #### 40560-0 ####[facility] LABIA [id number] [place], [place] [address]NLIKQYeh 92-03-1219YHJGEAJzmap (SP) Office (HEMASA) SANNA RENDON ([id number]) 1985 F Date Time Provider Department 03/02/25 11:30 AM KATHERINE NEGRETE During your visit today, we recorded the following information about you: Temperature Pulse Respiration Blood pressure 97.2 degrees 73/minute 16/minute 133/79 Weight 97.2 kg Katherine Negrete APRN.CNP 03/02/2025 8:18 PM Signed NAME: Sanna Rendon CLINIC NO.: [id number] DATE OF SERVICE: March 02, 2025 (Penelope) Some elements in this clinic note that are critical to medical decision making have been carefully reviewed and included from a prior clinic note dated: December 23, 2024 (Penelope) Additional Clinicians involved in Sanna Rendon's care: Drs. Herrmann, Jorge Monge, Humaria Gaviria, Dr. Boothe CC: Hypercoag state CASE SUMMARY / ASSESSMENT: 39 year old woman presents with a prior history of CVA in 2016 and an antiphospholipid antibody that was identified much later in 2018. These were found in [place], [place]. I don't have access to these [...] a target-like rash shortly before presenting to [facility] in 2016 with headaches and was [...] SUMMARIZED PLAN OF CARE: Continue Lovenox Saw NYLON OPERATOR and patient increased Lovenox to 40 mg [...] postpra (more content not included)... NormalSt. Charles Hospitalprehensive metabolic 2000 panelon 03-02-2025 Albumin [Mass/Vol]4.1 g/dLNormal3.9-4.9CTrumbull Regional Medical Center on above:Order Comment: Specimen Type: BLOOD SPECIMENOrdering Facility: [facility] Address:[address] [place], [place] [address]Performed By: #### 09908-4 ####[facility] LABCLIA [id number] [place], [place] [address]VPB [Catalytic activity/Vol]64 U/BDjywyq00-511 [facility] on above:Order Comment: Specimen Type: BLOOD SPECIMENOrdering Facility: [facility] Address:[address] [place], [place] [address]Performed By: #### 54558-7 ####[facility] LABCLIA [id number] [place], [place] [address]BHU [Catalytic activity/Vol]10 U/LNormal7-38[facility] on above:Order Comment: Specimen Type: BLOOD SPECIMENOrdering Facility: [facility] Address:[address] [place], [place] [address]Performed By: #### 80832- 8 ####[facility] LABCLIA [id number] [place], [place] [address]Ymnvd gap [Moles/Vol]13 mmol/LNormal8-15[facility] on above:Order Comment: Specimen Type: BLOOD SPECIMENOrdering Facility: [facility] Address:[address] [place], [place] [address]Performed By: #### 73437-1 ####[facility] LABCLIA [id number] [place], [place] [address]WDL [Catalytic activity/Vol]12 U/SHja62-24PpolhhialLima City Hospital on above:Order Comment: Specimen Type: BLOOD SPECIMENOrdering Facility: [facility] Address:[address] [place], [place] [address]Performed By: #### 65046-3 ####[facility] LABCLIA [id number] [place] [address] Bilirubin [Mass/Vol]0.2 mg/dLNormal0.2-1.3CTrumbull Regional Medical Center on above:Order Comment: Specimen Type: BLOOD SPECIMENOrdering Facility: [facility] Address:[address] [place], [place] [address]Performed By: #### 55947-6 ####[facility] LABCLIA [id number] [place], [place] [address]Firwkml [Mass/Vol]10.3 mg/dLHigh8.5-10.2CTrumbull Regional Medical Center on above:Order Comment: Specimen Type: BLOOD SPECIMENOrdering Facility: [facility] Address:[address] [place], [place] [address]Performed By: #### 56839-1 ####[facility] LABCLIA [id number] [place], [place] [address]Csuzwdlk [Moles/Vol]97 mmol/LVri82-198LzbxefvldLima City Hospital on above:Order Comment: Specimen Type: BLOOD SPECIMENOrdering Facility: [facility] Address:[address] [place], [place] [address]Performed By: #### 12352- 8 ####[facility] LABCLIA [id number] [employer] [place], [place] [address]RJ7 [Moles/Vol]21 mmol/PVpl53-48NoipnbdklLima City Hospital on above:Order Comment: Specimen Type: BLOOD SPECIMENOrdering Facility: [facility] Address:[address] [place], [place] [address]Performed By: #### 21829-4 ####[facility] LABCLIA [id number] [place], [place] [address]Ckakokogzy [Mass/Vol]0.54 mg/dL Low0.58-0.96[facility] on above:Order Comment: Specimen Type: BLOOD SPECIMENOrdering Facility: [facility] Address:[address] [place], [place] [address]Performed By: #### 41802-6 ####[facility] LABCLIA [id number] [place] [address] eGFRcr SerPlBld CKD-EPI 5403694 mL/min/1.73m???Normal>=60[facility] on above:Order Comment: Specimen Type: BLOOD SPECIMENOrdering Facility: [facility] Address:[address] [place], [place] [address]Result Comment: Estimated Glomerular Filtration Rate (eGFR) is [...] accurately reflect actual GFR. Performed By: #### 33566-2 ####[facility] LABIA [id number] [place], [place] [address]Jcwfyfl [Mass/Vol]71 mg/dLLow 74-99[facility] on above:Order Comment: Specimen Type: BLOOD SPECIMENOrdering Facility: [facility] Address:[address] [place], [place] [address]Result Comment: The [place] [employer] (ADA) provides [...] 2016, [place] [employer]. Diabetes Care. 2016.39(Suppl 1).Performed By: #### 64429-2 ####[facility] LABCLIA [id number] [place], [place] [address]Supvpvjsz [Moles/Vol]3.9 mmol/LNormal3.7-5.1CTrumbull Regional Medical Center on above:Order Comment: Specimen Type: BLOOD SPECIMENOrdering Facility: [facility] Address:[address] [place], [place] [address]Performed By: #### 04311-9 ####[facility] LABCLIA [id number] [place], [place] [address]Wyuemgm [Mass/Vol]7.2 g/dLNormal6.3-8.0[facility] on above:Order Comment: Specimen Type: BLOOD SPECIMENOrdering Facility: [facility] Address:[address] [place], [place] [address]Performed By: #### 44554- 8 ####[facility] LABCLIA [id number] [place], [place] [address]Qzycdv [Moles/Vol]131 mmol/IGeb998-690BelknogftLima City Hospital on above:Order Comment: Specimen Type: BLOOD SPECIMENOrdering Facility: [facility] Address:[address] [place], [place] [address]Performed By: #### 62650-5 ####[facility] LABCLIA [id number] [place], [place] [address]Qcir nitrogen [Mass/Vol]9 mg/dL Normal7-21[facility] on above:Order Comment: Specimen Type: BLOOD SPECIMENOrdering Facility: [facility] Address:[address] [place], [place] [address], [place] [address]Performed By: #### 59783-8 ####[facility] LABCLIA [id number] [place] [address] US OB BPP W NON-STRESSon 96-77-[place], [place] [address] Ultrasound Report Signed Patient: SANNA RENDON MR#: [id number] : 1985 Acct:[id number] Age/Sex: 39 / F ADM Date: 02/26/25 Loc: US Attending Dr: Wilton Herrmann D.O. Ordering Physician: Wilton Herrmann D.O. Date of Service: 02/26/25 Procedure(s): US OB BPP w non-stress Accession Number(s): [id number] cc: Wilton Herrmann D.O.; Physician,Non-Staff M.DLazara The [place] [address] Patient Name: SANNA RENDON MRN: [id number] date: 1985 Sex: F Assigned Patient Location: US Current Patient Location: Accession/Order Number: [id number] Exam Date: 02/26/2025 19:42 Report Date: 02/27/2025 [...] Pisano M.D. 02/27/2025 10:53 AM Dictation Location: [place] [address] Electronically authenticated by: [id number] Y Date: 02/27/2025 10:53 Dictated By: Pamela Pisano M.D. Signed By: 02/27/25 1056 DD/ 1053 TD/TT: Fuel Cell Systems Engineer:MANUELHRadiology, Radiologist, - 02/27/2025 [place] [address] Ultrasound Report Signed Patient: SANNA RENDON MR#: [id number] : 1985 Acct:[id number] Age/Sex: 39 / F ADM Date: 02/26/25 Loc: US Attending Dr: Wilton Herrmann D.O. Ordering Physician: Wilton Herrmann D.O. Date of Service: 02/26/25 Procedure(s): US OB BPP w non-stress Accession Number(s): [id number] cc: Wilton Herrmann D.O.; Physician,Non-Staff Tamia The [address] [id number] Patient Name: SANNA RENDON MRN: [id number] date: 1985 Sex: F Assigned Patient Location: Current Patient Location: Accession/Order Number: [id number] Exam Date: 02/26/2025 19:42 Report Date: 02/27/2025 [...] Pisano M.D. 02/27/2025 10:53 AM Dictation Location: [place] [address] Electronically authenticated by: [id number] Y Date: 02/27/2025 10:53 Dictated By: Pamela Pisano M.D. Signed By: 02/27/25 1056 DD/ 1053 TD/TT: Fuel Cell Systems Engineer: [facility] HealthcareRadiology Study observation (narrative)[facility] HealthcareUS OB BPP W NON-STRESSOrdered By: Radiologist Radiology on 21-95-7245AOAVSSM Health Care Work Phone: Urinalysis macro (dipstick) panel (U)on [...] - 1.03[facility] Urobilinogen, UA0.20.2 - 12 mg/dLNOReynolds County General Memorial HospitalNOReynolds County General Memorial HospitalNo Panel InformationOrdered By: Radiologist Radiology on 77-43-0422AEQWSSM Health Care Work Phone: No Panel Informationon 92-57-5647Ossriaybd Study observation (narrative)SHILOH BrowningUS OB BPP W NON-STRESSon 02-20-2025 [place] [address] Ultrasound Report Signed Patient: SANNA RENDON MR#: [id number] : 1985 Acct:[id number] Age/Sex: 39 / F ADM Date: 02/19/25 Loc: US Attending Dr: Wilton Herrmann D.O. Ordering Physician: Wilton Herrmann D.O. Date of Service: 02/19/25 Procedure(s): US OB BPP w non-stress Accession Number(s): [id number] cc: Wilton Herrmann D.O.; Physician,Non-Staff M.DLazara The [place] [id number] Patient Name: SANNA RENDON MRN: [id number] date: 1985 Sex: F Assigned Patient Location: LAB Current Patient Location: Accession/Order Number: [id number] Exam Date: 02/19/2025 19:47 Report Date: 02/20/2025 [...] Pisano M.D. 02/20/2025 8:37 AM Dictation Location: [place] [address] Electronically authenticated by: [id number] Y Date: 02/20/2025 08:37 Dictated By: Pamela Pisano M.D. Signed By: 02/20/25 0840 DD/ 0837 TD/TT: Fuel Cell Systems Engineer:TBHRadiology, Radiologist, - 02/20/2025 [place] [address] Ultrasound Report Signed Patient: SANNA RENDON MR#: [id number] : 1985 Acct:[id number] Age/Sex: 39 / F ADM Date: 02/19/25 Loc: US Attending Dr: Wilton Herrmann D.O. Ordering Physician: Wilton Herrmann D.O. Date of Service: 02/19/25 Procedure(s): US OB BPP w non-stress Accession Number(s): [id number] cc: Wilton Herrmann D.O.; Physician,Non-Staff [facility] [place] [id number] Patient Name: SANNA RENDON MRN: [id number] date: 1985 Sex: F Assigned Patient Location: LAB Current Patient Location: Accession/Order Number: [id number] Exam Date: 02/19/2025 19:47 Report Date: 02/20/2025 [...] Pisano M.D. 02/20/2025 8:37 AM Dictation Location: [place] [address] Electronically authenticated by: [id number] Y Date: 02/20/2025 08:37 Dictated By: Pamela Pisano M.D. Signed By: 02/20/25 0840 DD/ 0837 TD/TT: Fuel Cell Systems Engineer: SHILOH Ibanez [facility] [id number], [place] [address] Ultrasound Report Signed Patient: SANNA RENDON MR#: [id number] : 1985 Acct:[id number] Age/Sex: 39 / F ADM Date: 02/19/25 Loc: US Attending Dr: Wilton Herrmann D.O. Ordering Physician: Wilton Herrmann D.O. Date of Service: 02/19/25 Procedure(s): US OB growth Accession Number(s): [id number] cc: Wilton Herrmann D.O.; Physician,Non-Staff M.Ashvin [facility] [place] [id number] Patient Name: SANNA RENDON MRN: [id number] date: 1985 Sex: F Assigned Patient Location: LAB Current Patient Location: Accession/Order Number: [id number] Exam Date: 02/19/2025 19:47 Report Date: 02/20/2025 [...] Pisano M.D. 02/20/2025 8:37 AM Dictation Location: [place] [address] Electronically authenticated by: [id number] Y Date: 02/20/2025 08:37 Dictated By: Pamela Pisano M.D. Signed By: 02/20/25839 DD/ 6 TD/TT: Fuel Cell Systems Engineer:TBHRadiology, Radiologist, - 02/20/2025 [place] [address] Ultrasound Report Signed Patient: SANNA RENDON MR#: [id number] : 1985 Acct:[id number] Age/Sex: 39 / F ADM Date: 02/19/25 Loc: US Attending Dr: Wilton Herrmann D.O. Ordering Physician: Wilton Herrmann D.O. Date of Service: 02/19/25 Procedure(s): US OB growth Accession Number(s): [id number] cc: Wilton Herrmann D.O.; Physician,Non-Staff [place] [id number] Patient Name: SANNA RENDON MRN: [facility]:[id number] date: 1985 Sex: F Assigned Patient Location: LAB Current Patient Location: Accession/Order Number: [id number] Exam Date: 02/19/2025 19:47 Report Date: 02/20/2025 [...] Pisano M.D. 02/20/2025 8:37 AM Dictation Location: [place] [address] Electronically authenticated by: [id number] Y Date: 02/20/2025 08:37 Dictated By: Pamela Pisano M.D. Signed By: 02/20/25 0840 DD/ TD/TT: Fuel Cell Systems Engineer: SHILOH Colon CBC WITH AUTO DIFFon 16-08-0286OTEISNMHY ABSOLUTE AUTO0.0NOMS HealthcareBasophils/100 WBC (Bld)0.2 %0.2 - 2.0 %SHILOH HealthcareEosinophils/100 WBC (Bld)0.3 %Low0.9 - 7.0 %NOMS HealthcareErythrocyte distribution width (RBC) [Ratio]13.1 %11.0 - 15.0 %NOMS HealthcareHematocrit (Bld) [Volume fraction]34.6 %Low36.0 - 48.0 %NOM HealthcareHemoglobin (Bld) [Mass/Vol]12.1 g/dL12.0 - 16.0 g/dLNONC HealthcareIMMATURE GRANULOCYTES ABS AUTO0.06HighNONC HealthcareImmature granulocytes/100 WBC (Bld)0.6 %High0.0 - 0.5 %NOMS HealthcareInterpretation and review of laboratory resultsAbnormalNONC HealthcareLYMPHOCYTES ABSOLUTE AUTO2.3 NOM HealthcareLymphocytes/100 WBC (Bld)24.3 %20.5 - 60.0 %[facility] HospitalH (RBC) [Entitic mass]31.7 pg26.7 - 34.0 pgNOReynolds County General Memorial HospitalMCHC (RBC) [Mass/Vol] 35.0 g/dL29.9 - 35.2 g/dLSSM Health CareMCV (RBC) [Entitic vol]90.6 fL81.0 - 99.0 fLNONC HealthcareMONOCYTES ABSOLUTE AUTO0.5NOMS HealthcareMonocytes/100 WBC (Bld)5.6 %1.7 - 12.0 %NOM HealthcareNEUTROPHILS ABSOLUTE AUTO6.6HighNOMS HealthcareNeutrophils/100 WBC (Bld)69.0 %43.0 - 75.0 %[facility] HealthcarePlatelet mean volume (Bld) [Entitic vol]9.7 fL9.5 - 13.5 fLNOReynolds County General Memorial HospitalTBH EO #0.0NOMS [facility] HospitalTB BJW711RZCT [facility] HospitalTB RBC3.82LowNOMS [facility] HospitalTB WBC9.6NONC HealthcareCLINISYNCNOMS HealthcareUrinalysis macro (dipstick) panel (U)on 75-52-6195Iuszmlsvu, UANegativeNegative - 4(70) +++ mg/dLNOMS HealthcareBlood, UANegativeNegative - 50 Max/mcLNOMS HealthcareClarity, UAClearNOMS Healthcare Color, UAYellowNOMS HealthcareGlucose, UANegativeNegative - 2000(110) ++++ mg/dL NOMS HealthcareInterpretation and review of laboratory resultsAbnormalNONC HealthcareKetones, UANegativeNegative - 160(16) ++++ mg/dLNONC Healthcare Leukocytes, UATraceNegative - 500+++ John/mcLNONC HealthcareNitrite, UANegative Negative - PositiveNOMS HealthcarepH, UA6.55 - 9NOMS HealthcareProtein, UA NegativeNegative - 2000(20) ++++ mg/dLNOMS HealthcareSpec Grav, UA1.0051 - 1.03 NOMS HealthcareUrobilinogen, UA2.00.2 - 12 mg/dLNOMS HealthcareNOMS Healthcare CNPNon 96-83-4732IRZBImdznjbwu ([place]) SANNA RENDON ([id number]) 1985 F Date Time Provider Department 01/29/25 [...] Date Reviewed: 12/24/2024 Reviewed by: Katherine Negrete APRN.BRIDGE SAW OPERATOR - Fully Assessed Reason for Visit: [...] 05/28/2024 Encounter Status:Closed by RACHAEL JOHNSON on 01/30/25[facility]PNon [id number] ([place]) SANNA RENDON ([id number]) 1985 F Date Time Provider Department 01/26/25 [...] Date Reviewed: 12/24/2024 Reviewed by: Penelope, Katherine, PORTFOLIO CONSULTANT.BRIDGE SAW OPERATOR - Fully Assessed Prescriptions as of [...] 05/28/2024 Encounter Status:Closed by RACHAEL JOHNSON on 01/26/25NoalCUC Medical CenterUrinalysis macro (dipstick) panel (U)on 92-75-0492Lrmwvqfun, UANegative Negative - 4(70) +++ mg/dLNOMS HealthcareBlood, UANegativeNegative - 50 Max/mcL NOMS HealthcareClarity, UAClearNONC HealthcareColor, UAYellowNONC Healthcare Glucose, UANegativeNegative - 2000(110) ++++ mg/dLNOMS HealthcareInterpretation and review of laboratory resultsNormalNONC HealthcareKetones, UANegativeNegative - 160(16) ++++ mg/dLNOMS HealthcareLeukocytes, UANegativeNegative - 500+++ John/mcLNOMS HealthcareNitrite, UANegativeNegative - PositiveNOMS HealthcarepH, UA65 - 9NOMS HealthcareProtein, UANegativeNegative - 2000(20) ++++ mg/dLNOMS HealthcareSpec Grav, UA1.011 - 1.03NOMS HealthcareUrobilinogen, UA0.20.2 - 12 mg/dLNOMS HealthcareNOMS HealthcareTSHon 58-82-4002TOS Qn1.85 m[IU]/LNormal 0.34-5.60Adventhealther Thomas B. Finan CenterComment on above:Performed By: #### [id number] #### [facility] [address] [place], [place] [address]Lfxjhmayhy macro (dipstick) panel (U)on 94-18-7129Uzcubgdqx, UA NegativeNegative - 4(70) +++ mg/dLNOMS HealthcareBlood, [...] HealthcareNOMS HealthcareCBC W Auto Differential panel (Bld)on 15-01-3939Ojxahrtmj (Bld) [#/Vol]10*3/uLNormal<0.11CUC Medical CenterComment on above:Order Comment: Specimen Type: BLOOD SPECIMENOrdering Facility: [facility] Address:[address] [place], [place] [address]Irnppsrck By: #### 93755-0 ####[facility] LABCLIA [id number] [place], [place] [address]Oxnkdzdin/100 WBC (Bld)0.2 % NormalLima City Hospital on above:Order Comment: Specimen Type: BLOOD SPECIMENOrdering Facility: [facility] Address:[address] [place], [place] [address]Performed By: #### 70801-0 ####[facility] LABCLIA [id number] [place] [address] Differential cell count method Nom (Bld)AutoNormalClevelFormerly [facility], 1928–1983 Comment on above:Order Comment: Specimen Type: BLOOD SPECIMENOrdering Facility: [facility] Address:[address] [place] [address] Performed By: #### 87512-9 ####[facility] LABCLIA [id number] [place], [place] [address]Slacsmpayjf (Bld) [#/Vol]0.03 10*3/uLNormal<0.46[facility] on above:Order Comment: Specimen Type: BLOOD SPECIMENOrdering Facility: [facility] Address:[address] [place], [place] [address]Performed By: #### 18935-7 ####[facility] LABCLIA [id number] [place], [place] [address]Bestebmieuv/100 WBC (Bld)0.4 %NormalLima City Hospital on above:Order Comment: Specimen Type: BLOOD SPECIMENOrdering Facility: [facility] Address:[address] [place], [place] [address]Performed By: #### 61015-6 ####[facility] LABIA [id number] [place], [place] [address]Xprgoufdjvm distribution width (RBC) [Ratio]13.5 %Vymjow48.5-15.0[facility] on above: Order Comment: Specimen Type: BLOOD SPECIMENOrdering Facility: [facility] Address:[address] [place], [place] [address]Performed By: #### 51692- 8 ####[facility] LABCLIA [id number] [place], [place] [address]Sgtislguvn (Bld) [Volume fraction]34.6 %Low36.0-46.0 [facility] on above:Order Comment: Specimen Type: BLOOD SPECIMENOrdering Facility: [facility] Address:[address] [place], [place] [address]Performed By: #### 21040-0 ####[facility] LABCLIA [id number] [place], [place] [address]Tulesyamxf (Bld) [Mass/Vol]12.0 g/zRXibhjp98.5-15.5CTrumbull Regional Medical Center on above: Order Comment: Specimen Type: BLOOD SPECIMENOrdering Facility: [facility] Address:[address] [place], [place] [address]Performed By: #### 09890- 8 ####[facility] LABCLIA [id number] [place], [place] [address]Xdrehbaa granulocytes (Bld) [#/Vol]0.04 10*3/uLNormal <0.10[facility] on above:Order Comment: Specimen Type: BLOOD SPECIMENOrdering Facility: [facility] Address:[address] [place], [place] [address]Performed By: #### 23855-7 ####[facility] LABCLIA [id number] [place], [place] [address]Vxmlnxge granulocytes/100 WBC (Bld)0.5 %NormalLima City Hospital on above: Order Comment: Specimen Type: BLOOD SPECIMENOrdering Facility: [facility] Address:[address] [place], [place] [address]Performed By: #### 15867- 8 ####[facility] LABCLIA [id number] [place], [place] [address]Lordoyanacl (Bld) [#/Vol]2.45 10*3/uLNormal1.00-4.00 [facility] on above:Order Comment: Specimen Type: BLOOD SPECIMENOrdering Facility: [facility] Address:[address] [place], [place] [address]Performed By: #### 28782-4 ####[facility] LABCLIA [id number] [place], [place] [address]Nqcgbziczbv/100 WBC (Bld)28.7 %NormalLima City Hospital on above:Order Comment: Specimen Type: BLOOD SPECIMENOrdering Facility: [facility] Address:[address] [place], [place] [address]Performed By: #### 36587-6 ####[facility] LABCLIA [id number] [place], [place] [address]ZYU (RBC) [Entitic mass]31.6 tkQabner48.0-34.0[facility] on above:Order Comment: Specimen Type: BLOOD SPECIMENOrdering Facility: [facility] Address:[address] [place], [place] [address]Performed By: #### 83262-5 ####[facility] LABCLIA [id number] [place], [place] [address]CRWI (RBC) [Mass/Vol]34.7 g/oZIytrni92.5-36.0[facility] on above: Order Comment: Specimen Type: BLOOD SPECIMENOrdering Facility: [facility] Address:[address] [place], [place] [address]Performed By: #### 20459- 8 ####[facility] LABCLIA [id number] [place], [place] [address]MCY (RBC) [Entitic vol]91.1 cKEkybtf16.0-100.0[facility] on above:Order Comment: Specimen Type: BLOOD SPECIMENOrdering Facility: [facility] Address:[address] [place], [place] [address]Performed By: #### 66870-8 ####[facility] LABCLIA [id number] [place], [place] [address]Iuvgwvlpf (Bld) [#/Vol]0.44 10*3/uLNormal<0.87[facility] on above:Order Comment: Specimen Type: BLOOD SPECIMENOrdering Facility: [facility] Address:[address] [place], [place] [address]Performed By: #### 80629- 8 ####[facility] LABCLIA [id number] [place], [place] [address]Wjbbiusfr/100 WBC (Bld)5.1 %NormalLima City Hospital on above:Order Comment: Specimen Type: BLOOD SPECIMENOrdering Facility: [facility] Address:[address] [place], [place] [address]Performed By: #### 34246-9 ####[facility] LABCLIA [id number] [place], [place] [address]Opxbpnqgscs (Bld) [#/Vol]5.57 10*3/uLNormal1.45-7.50[facility] on above:Order Comment: Specimen Type: BLOOD SPECIMENOrdering Facility: [facility] Address:[address] [place], [place] [address]Performed By: #### 17435-9 ####[facility] LABCLIA [id number] [place], [place] [address]Zzgjhqdljok/100 WBC (Bld)65.1 %NormalLima City Hospital on above:Order Comment: Specimen Type: BLOOD SPECIMENOrdering Facility: [facility] Address:[address] [place], [place] [address]Performed By: #### 16992-1 ####[facility] LABCLIA [id number] [place], [place] [address]Tudgeajou RBC (Bld) [#/Vol] 10*3/uLNormal<0.01[facility] on above:Order Comment: Specimen Type: BLOOD SPECIMENOrdering Facility: [facility] Address:[address] [place], [place] [address]Performed By: #### 80500-4 ####[facility] LABCLIA [id number] [place], [place] [address]Ufowxhwne RBC/100 WBC (Bld) [Ratio]0.0 /100 WBCNormal [facility] on above:Order Comment: Specimen Type: BLOOD SPECIMENOrdering Facility: [facility] Address:[address] [place], [place] [address]Performed By: #### 17905-6 ####[facility] LABIA [id number] [place], [place] [address]Knmiftlf mean volume (Bld) [Entitic vol]9.7 fLNormal9.0-12.7CTrumbull Regional Medical Center on above:Order Comment: Specimen Type: BLOOD SPECIMENOrdering Facility: [facility] Address:[address] [place] [address] Performed By: #### 16155-8 ####[facility] LABCLIA [id number] [place], [place] [address]Oxctavzmn (Bld) [#/Vol]260 10*3/zCDyrvxf587-006CiluxzukiLima City Hospital on above:Order Comment: Specimen Type: BLOOD SPECIMENOrdering Facility: [facility] Address:[address] [place], [place] [address]Performed By: #### 16044-8 ####[facility] LABCLIA [id number] [place], [place] [address]BAE (Bld) [#/Vol]3.80 10*6/uLLow3.90-5.20[facility] on above:Order Comment: Specimen Type: BLOOD SPECIMENOrdering Facility: [facility] Address:[address] [place], [place] [address]Njvmlkwqj By: #### 83281-1 ####[facility]ITALIA [id number] [place], [place] [address]MFF (Bld) [#/Vol]8.55 10*3/uL Normal3.70-11.00[facility] HospitalComup health system on above:Order Comment: Specimen Type: BLOOD SPECIMENOrdering Facility: [facility] Address:[address] [place] [address]Kmedncuao By: #### 62898-6 ####[facility] LABCLIA [id number] [place], [place] [address]HNJFFVnw 31-81-2524TIISCVAuxye (SP) Office ([place]) SANNA RENDON ([id number]) 1985 F Date Time Provider Department 12/23/24 11:30 AM KATHERINE NEGRETE During your visit today, we recorded the following information about you: Temperature Pulse Respiration Blood pressure 97.6 degrees 80/minute 16/minute 103/69 Weight Height 94.4 kg 1.677 m Katherine Negrete APRN.BRIDGE SAW OPERATOR 12/24/2024 9:07 PM Signed NAME: Sanna Rendon CLINIC NO.: [id number] DATE OF SERVICE: December 23, 2024 (Penelope) [...] later in 2018. These were found in [place], [place]. I don't have access to these [...] a target-like rash shortly before presenting to [facility] in 2015 with headaches and was [...] vitamin D supplementat (more content not included)...Normal [facility] HospitalComprehensive metabolic 2000 panelon 24-13-4357Llfuyjg [Mass/Vol]4.1 g/dLNormal3.9-4.9CTrumbull Regional Medical Center on above:Order Comment: Specimen Type: BLOOD SPECIMENOrdering Facility: [facility] Address:[address] [place] [address]Performed By: #### 41165- 8 ####[facility] LABCLIA [id number] [facility] DUMONTABRAZO CENTRAL [place]AMPUSVAN[place], [place] [address]ROR [Catalytic activity/Vol]43 U/SQberwi65-649GyaznyafjLima City Hospital on above:Order Comment: Specimen Type: BLOOD SPECIMENOrdering Facility: [facility] Address:[address] [place], [place] [address]Performed By: #### 25983-6 ####[facility] LABCLIA [id number] FABI GREENSEABRAZO CENTRAL CAMPUSTEETEEDES [place], [place] [address]SDL [Catalytic activity/Vol]11 U/LNormal7-38[facility] on above:Order Comment: Specimen Type: BLOOD SPECIMENOrdering Facility: [facility] Address:[address] [place], [place] [address]Performed By: #### 17534- 8 ####[facility] LABCLIA [id number] [facility] [place]ER [place], [place] [address]Qsobi gap [Moles/Vol]12 mmol/LNormal8-15[facility] on above:Order Comment: Specimen Type: BLOOD SPECIMENOrdering Facility: [facility] Address:[address] [place], [place] [address]Performed By: #### 43670-0 ####[facility] LABCLIA [id number] F[facility]I CHERRYABRAZO CENTRAL CAMPUSV[place], [place] [address]JPP [Catalytic activity/Vol]12 U/MDjw38-36EyobpapjeLima City Hospital on above:Order Comment: Specimen Type: BLOOD SPECIMENOrdering Facility: [facility] Address:[address] [place], [place] [address]Performed By: #### 08052-7 ####[facility] LABCLIA [id number] [facility] PETERSEABRAZO CEN[place] [address] Bilirubin [Mass/Vol]0.2 mg/dLNormal0.2-1.3CTrumbull Regional Medical Center on above:Order Comment: Specimen Type: BLOOD SPECIMENOrdering Facility: [facility] Address:[address] [place], [place] [address]Performed By: #### 68824-1 ####[facility] LABCLIA [id number] [facility] [place], [place] [address]Xyoesyw [Mass/Vol]9.5 mg/dLNormal8.5-10.2CTrumbull Regional Medical Center on above:Order Comment: Specimen Type: BLOOD SPECIMENOrdering Facility: [facility] Address:[address] [place], [place] [address]Performed By: #### 48597-1 ####[facility] LABCLIA [id number] [place], [place] [address]Qntfrlnd [Moles/Vol]98 mmol/TArlazf72-297XggdxleukLima City Hospital on above:Order Comment: Specimen Type: BLOOD SPECIMENOrdering Facility: [facility] Address:[address] [place], [place] [address]Performed By: #### 48760- 8 ####[facility] LABCLIA [id number] [facility] [place], [place] [address]QD1 [Moles/Vol]20 mmol/GZxy26-69JtgcqvopwLima City Hospital on above:Order Comment: Specimen Type: BLOOD SPECIMENOrdering Facility: [facility] Address:[address] [place], [place] [address]Performed By: #### 61947-7 ####[facility] LABCLIA [id number] [place], [place] [address]Lhgxzgiibh [Mass/Vol]0.54 mg/dL Low0.58-0.96[facility] on above:Order Comment: Specimen Type: BLOOD SPECIMENOrdering Facility: [facility] Address:[address] [place], [place] [address]Performed By: #### 69144-9 ####[facility] LABCLIA [id number] [facility] [place] [address] eGFRcr SerPlBld CKD-EPI 5723832 mL/min/1.73m???Normal>=60[facility] on above:Order Comment: Specimen Type: BLOOD SPECIMENOrdering Facility: [facility] Address:[address] [place], [place] [address]Yeyypg Comment: Estimated Glomerular Filtration Rate (eGFR) is [...] accurately reflect actual GFR. Performed By: #### 96971-4 ####[facility] LABCLIA [id number] [place], [place] [address]Folgywq [Mass/Vol]104 mg/dLHigh 74-99[facility] on above:Order Comment: Specimen Type: BLOOD SPECIMENOrdering Facility: [facility] Address:[address] [place] [address]Fasfza Comment: The [place] [employer] (ADA) provides [...] 2016, [place] [employer]. Diabetes Care. 2016.39(Suppl 1).Performed By: #### 78925-3 ####[facility] LABCLIA [id number] [place], [place] [address]Jlfkeczcj [Moles/Vol]4.0 mmol/LNormal3.7-5.1CTrumbull Regional Medical Center on above:Order Comment: Specimen Type: BLOOD SPECIMENOrdering Facility: [facility] Address:[address] [place], [place] [address]Heuqepgbs By: #### 10900-6 ####[facility] LABCLIA [id number] [place], [place] [address]Fiyytxl [Mass/Vol]6.7 g/dLNormal6.3-8.0[facility] on above:Order Comment: Specimen Type: BLOOD SPECIMENOrdering Facility: [facility] Address:[address] [place], [place] [address]Performed By: #### 19198- 8 ####[facility] LABCLIA [id number] [place], [place] [address]Sxtzhc [Moles/Vol]130 mmol/JJwu231-761EuqzrktohLima City Hospital on above:Order Comment: Specimen Type: BLOOD SPECIMENOrdering Facility: [facility] Address:[address] [place], [place] [address]Performed By: #### 67694-8 ####[facility] LABCLIA [id number] [place], [place] [address]Cnbr nitrogen [Mass/Vol]7 mg/dL Normal7-21[facility] on above:Order Comment: Specimen Type: BLOOD SPECIMENOrdering Facility: [facility] Address:[address] [place], [place] [address]Performed By: #### 12024-4 ####[facility] LABCLIA [id number] [place] [address] Ferritin SerPl-mCncon 72-19-8021Kncpbbir [Mass/Vol]43.5 ng/oWComrlr00.7-205.1 [facility] on above:Order Comment: Specimen Type: BLOOD SPECIMENOrdering Facility: [facility] Address:[address] [place], [place] [address]Performed By: #### 49220-8, 2276-4, 2132-9 ####[facility] LABCLIA [id number] [place] [address] [place] OF AMERICAIron and Iron binding capacity panelon 08-26-2025 Iron [Mass/Vol]80 ug/bTSadyzx58-593AjtnicjecLima City Hospital on above: Order Comment: Specimen Type: BLOOD SPECIMENOrdering Facility: [facility] Address:[address] [place], [place] [address]Performed By: #### 34901- 8, 2275-07, 2131-12 ####[facility] LABCLIA [id number] [address] AMERICAIron binding capacity [Mass/Vol]437 ug/sHTtch156-453FnokuhmtyLima City Hospital on above:Order Comment: Specimen Type: BLOOD SPECIMENOrdering Facility: [facility] Address:[address] [place], [place] [address]Performed By: #### 28932- 8, 2275-07, 2131-12 ####[facility] LABCLIA [id number] [address]Iron/TIBC [Molar ratio]18.3 %Wytkre32.0-57.0[facility] on above:Order Comment: Specimen Type: BLOOD SPECIMENOrdering Facility: [facility] Address:[address] [place], [place] [address]Performed By: #### 71169- 8, 2275-07, 2131-12 ####[facility] LABCLIA [id number] [place] [id number] [facility] AMERICAVit B12 [facility] 92-97-0836Cbkhvpbwn (Vitamin B12) [Mass/Vol]328 pg/wYGuqqvg999-1272OmxkvumjpTrumbull Regional Medical Center on above:Order Comment: Specimen Type: BLOOD SPECIMENOrdering Facility: [facility] Address:[address] [place], [place] [address]Performed By: #### 88756-3, 2275-07, 2131-12 ####[facility] LABCLIA [id number] [place] [id number] [facility]TB UA (CLEAN/CATCH) WAGE AND 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 IND.on 46-92-1656JOQEDQWUF URINENegativeNEGATIVENOMS HealthcareBLOOD URINENegative NEGATIVENOMS HealthcareClarity (U)CLEARCLEARNOMS HealthcareColor (U)LT. YELLOW YELLOWNOMS HealthcareGLUCOSE URINE UANegativeNEGATIVE mg/dLNOMS Healthcare Interpretation and review of laboratory resultsAbnormalNOMS HealthcareKetones Ql (U)NegativeNEGATIVE mg/dLNOMS HealthcareLeukocyte esterase Test strip Ql (U) SMALLAbnormalNEGATIVENOMS HealthcareNITRITE URINENegativeNEGATIVENOMS Healthcare pH (U)6.0 [pH]5.0 - 9.0NOMS HealthcarePROTEIN URINENegativeNEG/TRACE mg/dLNOMS HealthcareSPECIFIC GRAVITY URINE<=1.562Gurmhwfs4.005 - 1.025NOMS HealthcareURINE MICROSCOPIC INDICATEDYESNOMS HealthcareUROBILINOGEN URINE0.2 EU/dL0.2 - 1.0 EU/dLNONC HealthcareCLINISYNCNOMS HealthcareUS OB CERVICAL LENGTHon 12-16-[address] [address] Ultrasound Report Signed Patient: SANNA RENDON MR#: [id number] : 1985 Acct:[id number] Age/Sex: 39 / F ADM Date: Loc: [facility] 251-[address]: Wilton Herrmann D.O. Ordering Physician: Wilton Herrmann D.O. Date of Service: 12/16/24 Procedure(s): US OB cervical length Accession Number(s): [id number] cc: Wilton Herrmann D.O.; PENELOPE CASAS [address] [address] Patient Name: SANNA RENDON MRN: [id number] date: 1985 Sex: F Assigned Patient Location: [facility] Current Patient Location: Accession/Order Number: [id number] Exam Date: 12/16/2024 20:39 Report Date: 12/16/2024 [...] Beltrán M.D. 12/16/2024 8:41 PM Dictation Location: [facility] Electronically authenticated by: [id number] Y Date: 12/16/2024 20:41 Dictated By: Robert Beltrán D.O. Signed By: 12/16/242042 DD/ 40 TD/TT: Fuel Cell Systems Engineer:ELVERadiologcarmen Radiologist, - 12/16/2024 [place] [address] Ultrasound Report Signed Patient: SANNA RENDON MR#: [id number] : 1985 Acct:[id number] Age/Sex: 39 / F ADM Date: Loc: [facility] [address]: Wilton Herrmann D.O. Ordering Physician: Wilton Herrmann D.O. Date of Service: 12/16/24 Procedure(s): US OB cervical length Accession Number(s): [id number] cc: Wilton Herrmann D.O.; PENELOPE CASAS [place] [address] Patient Name: SANNA RENDON MRN: [id number] date: 1985 Sex: F Assigned Patient Location: [facility] Current Patient Location: Accession/Order Number: [id number] Exam Date: 12/16/2024 20:39 Report Date: 12/16/2024 [...] Beltrán M.D. 12/16/2024 8:41 PM Dictation Location: [facility] Electronically authenticated by: [id number] Y Date: 12/16/2024 20:41 Dictated By: Robert Beltrán D.O. Signed By: 12/16/242042 DD/ 40 TD/TT: Fuel Cell Systems Engineer: SHILOH HealthcareRadiology Study observation (narrative)NOMS HealthcareUS OB CERVICAL LENGTHOrdered By: Radiologist Radiology on [id number] [facility] Work Phone: aLL THYROID STIM HORMONEon [id number] Qn1.508 m[IU]/LNOMS HealthcareCLINISYNCNOMS HealthcareUrinalysis macro (dipstick) panel (U)on 35-11-3592Eynbpqsof, UANegativeNegative - 4(70) +++ mg/dLNONC Healthcare Blood, UANegativeNegative - 50 Max/mcLNONC HealthcareClarity, UAClearNOMS HealthcareColor, UAYellowNOMS HealthcareGlucose, UANegativeNegative - 2000(110) ++++ mg/dLNONC HealthcareInterpretation and review of laboratory resultsNormal NOM HealthcareKetones, UANegativeNegative - 160(16) ++++ mg/dLNONC Healthcare Leukocytes, UANegativeNegative - 500+++ John/mcLNONC HealthcareNitrite, UA NegativeNegative - PositiveNOMS HealthcarepH, UA65 - 9NOMS HealthcareProtein, UA NegativeNegative - 2000(20) ++++ mg/dLNONC HealthcareSpec Grav, UA1.011 - 1.03 NOMS HealthcareUrobilinogen, UA1.00.2 - 12 mg/dLNONC HealthcareNONC Healthcare Urinalysis macro (dipstick) panel (U)on 11-30-9422Fqagrydmm, UANegativeNegative - 4(70) +++ mg/dLNOMS HealthcareBlood, UANegativeNegative [...] 12 mg/dLNOMS HealthcareNOMS HealthcareGlucose random or fasting- [facility] 11-19-2024 External Glucose Fasting Or Random (Fbs)94[facility] CenterUrinalysis macro (dipstick) panel (U)on 99-19-8895Sujokfxzr, UA NegativeNegative - 4(70) +++ mg/dLNOMS HealthcareBlood, [...] 1.03NOMS HealthcareUrobilinogen, UA0.20.2 - 12 mg/dLNOMS HealthcareNOMS Qgvdlhgowb39([place])D3 SerPl-[facility]ple University Hospitalon 20-32-490688435590-hexqgsiuccbgaq D3 [Mass/Vol]32.1 ng/cYDdipea14.0-80.0[facility] on above:Order Comment: Specimen Type: BLOOD SPECIMENOrdering Facility: [facility] Address:[address] [place], [place] [address]Result Comment: Classification of 25 [place] Vitamin D status: Deficiency/Insufficiency: < or = 30 ng/ml. Sufficiency/Optimal Levels: 31-80 ng/mL Toxicity: > 100 ng/mL. Test performed by chemiluminescent immunoassay.Performed By: #### 1989-3 ####[facility] LABCLIA [id number] [address] Auto Differential panel (Bld)on 39-67-8237Bccyhwtxa (Bld) [#/Vol]0.03 10*3/uLNormal<0.11CUC Medical CenterComment on above:Order Comment: Specimen Type: BLOOD SPECIMENOrdering Facility: [facility] Address:[address] [place], [place] [address]Performed By: #### 72757-7 ####[facility] LABIA [id number] [place], [place] [address]Lbwgxyjvj/100 WBC (Bld)0.3 % NormalLima City Hospital on above:Order Comment: Specimen Type: BLOOD SPECIMENOrdering Facility: [facility] Address:[address] [place], [place] [address]Performed By: #### 58535-8 ####[facility] LABCLIA [id number] [place] [address] Differential cell count method Nom (Bld)AutoNormalCUC Medical Center Comment on above:Order Comment: Specimen Type: BLOOD SPECIMENOrdering Facility: [facility] Address:[address] [place] [address] Performed By: #### 56748-6 ####[facility] LABCLIA [id number] [place], [place] [address]Ibxidqkduyf (Bld) [#/Vol]0.05 10*3/uLNormal<0.46[facility] on above:Order Comment: Specimen Type: BLOOD SPECIMENOrdering Facility: [facility] Address:[address] [place], [place] [address]Performed By: #### 22411-7 ####[facility] LABCLIA [id number] [place], [place] [address]Qnwbjztemoi/100 WBC (Bld)0.5 %NormalLima City Hospital on above:Order Comment: Specimen Type: BLOOD SPECIMENOrdering Facility: [facility] Address:[address] [place], [place] [address]Performed By: #### 80763-1 ####[facility] LABCLIA [id number] [place], [place] [address]Mviqbabpwud distribution width (RBC) [Ratio]14.5 %Dtjuah72.5-15.0[facility] on above: Order Comment: Specimen Type: BLOOD SPECIMENOrdering Facility: [facility] Address:[address] [place], [place] [address]Performed By: #### 99359- 8 ####[facility] LABCLIA [id number] [place], [place] [address]Rxiijzgckb (Bld) [Volume fraction]36.9 %Umpfth49.0-46.0 [facility] on above:Order Comment: Specimen Type: BLOOD SPECIMENOrdering Facility: [facility] Address:[address] [place], [place] [address]Performed By: #### 50827-2 ####[facility] LABIA [id number] [place], [place] [address]Galbxvxfys (Bld) [Mass/Vol]13.0 g/jCOzqbfr10.5-15.5CTrumbull Regional Medical Center on above: Order Comment: Specimen Type: BLOOD SPECIMENOrdering Facility: [facility] Address:[address] [place], [place] [address]Performed By: #### 72914- 8 ####[facility] LABCLIA [id number] [place], [place] [address]Tcbttsqb granulocytes (Bld) [#/Vol]10*3/uLNormal<0.10 [facility] on above:Order Comment: Specimen Type: BLOOD SPECIMENOrdering Facility: [facility] Address:[address] [place], [place] [address]Performed By: #### 21615-7 ####[facility] LABCLIA [id number] [place], [place] [address]Ydruhcac granulocytes/100 WBC (Bld)0.2 %NormalLima City Hospital on above: Order Comment: Specimen Type: BLOOD SPECIMENOrdering Facility: [facility] Address:[address] [place], [place] [address]Performed By: #### 51258- 8 ####[facility] LABIA [id number] [place], [place] [address]Becmrrewwkp (Bld) [#/Vol]2.50 10*3/uLNormal1.00-4.00 [facility] on above:Order Comment: Specimen Type: BLOOD SPECIMENOrdering Facility: [facility] Address:[address] [place], [place] [address]Performed By: #### 33344-1 ####[facility] LABIA [id number] [place], [place] [address]Chszlaekfew/100 WBC (Bld)26.3 %NormalLima City Hospital on above:Order Comment: Specimen Type: BLOOD SPECIMENOrdering Facility: [facility] Address:[address] [place], [place] [address]Performed By: #### 81506-9 ####[facility] LABIA [id number] [place], [place] [address]SKT (RBC) [Entitic mass]30.6 dlWsvfld73.0-34.0[facility] on above:Order Comment: Specimen Type: BLOOD SPECIMENOrdering Facility: [facility] Address:[address] [place], [place] [address]Performed By: #### 88637-0 ####[facility] LABCLIA [id number] [place], [place] [address]FELQ (RBC) [Mass/Vol]35.2 g/kEFzuosb11.5-36.0[facility] on above: Order Comment: Specimen Type: BLOOD SPECIMENOrdering Facility: [facility] Address:[address] [place], [place] [address]Performed By: #### 67550- 8 ####[facility] LABCLIA [id number] [place], [place] [address]XEL (RBC) [Entitic vol]86.8 eLYzqrwg77.0-100.0[facility] on above:Order Comment: Specimen Type: BLOOD SPECIMENOrdering Facility: [facility] Address:[address] [place], [place] [address]Performed By: #### 67562-0 ####[facility] LABCLIA [id number] [place], [place] [address]Ggwqiwjyf (Bld) [#/Vol]0.44 10*3/uLNormal<0.87[facility] on above:Order Comment: Specimen Type: BLOOD SPECIMENOrdering Facility: [facility] Address:[address] [place], [place] [address]Performed By: #### 55413- 8 ####[facility] LABCLIA [id number] [place], [place] [address]Dufhbtczx/100 WBC (Bld)4.6 %NormalLima City Hospital on above:Order Comment: Specimen Type: BLOOD SPECIMENOrdering Facility: [facility] Address:[address] [place], [place] [address]Performed By: #### 43707-4 ####[facility] LABCLIA [id number] [place], [place] [address]Mleowgawsan (Bld) [#/Vol]6.48 10*3/uLNormal1.45-7.50[facility] on above:Order Comment: Specimen Type: BLOOD SPECIMENOrdering Facility: [facility] Address:[address] [place], [place] [address]Performed By: #### 48962-6 ####[facility] LABCLIA [id number] [place], [place] [address]Mvbkjxyrkyc/100 WBC (Bld)68.1 %NormalLima City Hospital on above:Order Comment: Specimen Type: BLOOD SPECIMENOrdering Facility: [facility] Address:[address] [place], [place] [address]Performed By: #### 18856-9 ####[facility] LABCLIA [id number] [place], [place] [address]Odbiiwgnj RBC (Bld) [#/Vol] 10*3/uLNormal<0.01[facility] on above:Order Comment: Specimen Type: BLOOD SPECIMENOrdering Facility: [facility] Address:[address] [place], [place] [address]Performed By: #### 48018-7 ####[facility] LABCLIA [id number] [place], [place] [address]Roebpfuzo RBC/100 WBC (Bld) [Ratio]0.0 /100 WBCNormal [facility] on above:Order Comment: Specimen Type: BLOOD SPECIMENOrdering Facility: [facility] Address:[address] [place], [place] [address]Performed By: #### 40094-7 ####[facility] LABIA [id number] [place], [place] [address]Rokohdvp mean volume (Bld) [Entitic vol]9.8 fLNormal9.0-12.7CTrumbull Regional Medical Center on above:Order Comment: Specimen Type: BLOOD SPECIMENOrdering Facility: [facility] Address:[address] [place] [address] Performed By: #### 26900-0 ####[facility] LABCLIA [id number] [place], [place] [address]Ulkdrgrzy (Bld) [#/Vol]327 10*3/tNZlftir721-241IhzkclgetLima City Hospital on above:Order Comment: Specimen Type: BLOOD SPECIMENOrdering Facility: [facility] Address:[address] [place], [place] [address]Performed By: #### 11805-7 ####[facility] LABIA [id number] [place], [place] [address]KPO (Bld) [#/Vol]4.25 10*6/uLNormal3.90-5.20[facility] on above:Order Comment: Specimen Type: BLOOD SPECIMENOrdering Facility: [facility] Address:[address] [place], [place] [address]Performed By: #### 47032-8 ####[facility] LABIA [id number] [place], [place] [address]WZT (Bld) [#/Vol]9.52 10*3/uLNormal3.70-11.00[facility] on above: Order Comment: Specimen Type: BLOOD SPECIMENOrdering Facility: [facility] Address:[address] [place], [place] [address]Performed By: #### 81402- 8 ####[facility] LABIA [id number] [place], [place] [address]NVILNFfa 66-48-9415EKNTDYYabjj (SP) Office ([place]) SANNA RENDON ([id number]) 1985 F Date Time Provider Department 10/28/24 2:30 PM KATHERINE NEGRETE During your visit today, we recorded the following information about you: Temperature Pulse Respiration Blood pressure 97 degrees 82/minute 16/minute 122/77 Weight Last Period 94.1 kg 10/28/24 Katherine Negrete APRN.BRIDGE SAW OPERATOR 10/29/2024 9:44 PM Signed NAME: Sanna Rendon CLINIC NO.: [id number] DATE OF SERVICE: October 28, 2024 ([place]) [...] later in 2018. These were found in [place], [place]. I don't have access to these [...] a target-like rash shortly before presenting to [facility] in 2016 with headaches and was [...] negative. Numbness and vi (more content not included)...NormalWvumedicine [facility] Hospital Sisi 30-22-5729SNUNLgkbjqnjz (NCCAP) SANNA RENDON ([id number]) 1985 F Date Time Provider Department 10/28/24 [...] 05/28/2024 Encounter Status:Closed by RACHAEL JOHNSON on 11/05/24NormalCPremier Health Miami Valley Hospital Northprehensive metabolic 2000 panelon 68-24-5051Qgyhsmq [Mass/Vol]4.4 g/dLNormal3.9-4.9CTrumbull Regional Medical Center on above:Order Comment: Specimen Type: BLOOD SPECIMENOrdering Facility: [facility] Address:[address] [place], [place] [address]Performed By: #### 93502-1 ####[facility] LABCLIA [id number] [place], [place] [address]QHP [Catalytic activity/Vol]55 U/TUggyeu27-573MeyajnzkvLima City Hospital on above:Order Comment: Specimen Type: BLOOD SPECIMENOrdering Facility: [facility] Address:[address] [place], [place] [address]Performed By: #### 70714-7 ####[facility] LABCLIA [id number] [place], [place] [address]XOW [Catalytic activity/Vol]18 U/LNormal7-38[facility] on above:Order Comment: Specimen Type: BLOOD SPECIMENOrdering Facility: [facility] Address:[address] [place], [place] [address]Performed By: #### 45878- 8 ####[facility] LABCLIA [id number] [facility] [place], [place] [address]Weble gap [Moles/Vol]12 mmol/LNormal8-15[facility] on above:Order Comment: Specimen Type: BLOOD SPECIMENOrdering Facility: [facility] Address:[address] [place], [place] [address]Performed By: #### 50099-4 ####[facility] LABCLIA [id number] [facility] [place], [place] [address]ZXJ [Catalytic activity/Vol]13 U/XRsjfnq10-29DwdqopqctLima City Hospital on above:Order Comment: Specimen Type: BLOOD SPECIMENOrdering Facility: [facility] Address:[address] [place], [place] [address]Performed By: #### 08479-3 ####[facility] LABCLIA [id number] [place] [address] Bilirubin [Mass/Vol]0.2 mg/dLNormal0.2-1.3CTrumbull Regional Medical Center on above:Order Comment: Specimen Type: BLOOD SPECIMENOrdering Facility: [facility] Address:[address] [place], [place] [address]Performed By: #### 51332-1 ####[facility] LABCLIA [id number] [facility] PETERSEABRA[place], [place] [address]Qgrkxwt [Mass/Vol]9.9 mg/dLNormal8.5-10.2CTrumbull Regional Medical Center on above:Order Comment: Specimen Type: BLOOD SPECIMENOrdering Facility: [facility] Address:[address] [place], [place] [address]Performed By: #### 57098-3 ####[facility] LABIA [id number] [place], [place] [address]Zzriqrti [Moles/Vol]99 mmol/HGdkwvg40-992WjlxsatecLima City Hospital on above:Order Comment: Specimen Type: BLOOD SPECIMENOrdering Facility: [facility] Address:[address] [place], [place] [address]Performed By: #### 49701- 8 ####[facility] LABCLIA [id number] [place], [place] [address]JY2 [Moles/Vol]22 mmol/BYwlcqu64-31JoipjvfmxLima City Hospital on above:Order Comment: Specimen Type: BLOOD SPECIMENOrdering Facility: [facility] Address:[address] [place], [place] [address]Performed By: #### 09553-3 ####[facility] LABCLIA [id number] [place], [place] [address]Krrnqugkej [Mass/Vol]0.60 mg/dL Normal0.58-0.96[facility] on above:Order Comment: Specimen Type: BLOOD SPECIMENOrdering Facility: [facility] Address:[address] [place], [place] [address]Performed By: #### 42982-8 ####[facility] LABCLIA [id number] [place], [place] [address]Qftvognorg and Glomerular filtration rate.predicted panel (S/P/Bld)117 mL/min/1.73m???Normal>=60[facility] on above:Order Comment: Specimen Type: BLOOD SPECIMENOrdering Facility: [facility] Address:[address] [place], [place] [address]Result Comment: Estimated Glomerular Filtration Rate (eGFR) is [...] not accurately reflect actual GFR.Performed By: #### 51143-0 ####[facility] LABCLIA [id number] [place], [place] [address]Hknqncf [Mass/Vol]101 mg/kHTewt27-91FkjoiggtxLima City Hospital on above:Order Comment: Specimen Type: BLOOD SPECIMENOrdering Facility: [facility] Address:[address] [place] [address]Wssexp Comment: The [place] [employer] (ADA) provides [...] 2016, [place] [employer]. Diabetes Care. 2016.39(Suppl 1).Performed By: #### 63987-2 ####[facility] LABCLIA [id number] [place], [place] [address]Davakvoln [Moles/Vol]3.5 mmol/LLow3.7-5.1CTrumbull Regional Medical Center on above:Order Comment: Specimen Type: BLOOD SPECIMENOrdering Facility: [facility] Address:[address] [place], [place] [address]Performed By: #### 37700-6 ####[facility] LABCLIA [id number] [place], [place] [address]Ponpcqh [Mass/Vol]7.6 g/dL Normal6.3-8.0[facility] on above:Order Comment: Specimen Type: BLOOD SPECIMENOrdering Facility: [facility] Address:[address] [place] [address]Yobawlbhd By: #### 92052-4 ####[facility] LABCLIA [id number] [place] [address] Sodium [Moles/Vol]133 mmol/OWov769-558WtbrmrpywLima City Hospital on above:Order Comment: Specimen Type: BLOOD SPECIMENOrdering Facility: [facility] Address:[address] [place], [place] [address]Performed By: #### 60042-0 ####[facility] LABCLIA [id number] [place], [place] [address]Tqnw nitrogen [Mass/Vol]7 mg/dLNormal7-21W[facility]umed[facility] Harrison Community HospitalComment on above:Order Comment: Specimen Type: BLOOD SPECIMENOrdering Facility: [facility] Address:[address] [place], [place] [address]Performed By: #### 45897-8 ####[facility] LABCLIA [id number] [place], [place] [address]Ihzouqwd SerPl-mCncon 46-29-7851Rhxdfzpf [Mass/Vol]99.6 ng/bYDcajca14.7-205.1CUC Medical CenterComup health system on above:Order Comment: Specimen Type: BLOOD SPECIMENOrdering Facility: [facility] Address:[address] [place], [place] [address]Performed By: #### 2276-4, 06855-4, 9, 3016-3 ####[facility] LABCLIA [id number] [place] [address] [place] OF AMERICAIron and Iron binding capacity panelon 30-38-5070Xzgy [Mass/Vol]72 ug/aRXmsscb87-735BfhjkeqirWvumedicine Harrison Community Hospital Comment on above:Order Comment: Specimen Type: BLOOD SPECIMENOrdering Facility: [facility] Address:[address] [place] [address] Performed By: #### 2276-4, 00308-3, 9, 3016-3 ####[facility] LABCLIA [id number] [place] [address] [place] AMERICAIron binding capacity [Mass/Vol]399 ug/tZAmas469-872YiddzkgezWvumedicine Harrison Community HospitalComup health system on above:Order Comment: Specimen Type: BLOOD SPECIMENOrdering Facility: [facility] Address:[address] [place], [place] [address]Performed By: #### 2276-4, 24958-0, 2131-12, 6-3 ####[facility] LABCLIA [id number] [address] [address] [place] [facility] HOSPITALIron/TIBC [Molar ratio]18.0 % Porkbs88.0-57.0[facility] on above:Order Comment: Specimen Type: BLOOD SPECIMENOrdering Facility: [facility] Address:[address] [place] [address] [place] [id number] By: #### 2276-4, 38616-6, 2131-12, 6-3 ####[facility] LABIA [id number] [place] [address] [facility]TSLos [facility] 10-28-2024 Thyroid Stimulating (3Rd Generation) Hormone/ Tsh1.25[facility] SerPl-aCncon 40-40-3730FMY Qn1.250 m[IU]/LNormal 0.270-4.200[facility] on above:Order Comment: Specimen Type: BLOOD SPECIMENOrdering Facility: [facility] Address:[address] [place] [address] [place], [place] [address]Result Comment: If the patient is , TSH [...] . Thyroid, 2017:27:3:315-389. Performed By: #### 2276-4, 04294-8, 9, 6-3 ####[facility] LABCLIA [id number] [address] [address] [facility] WESTVit B12 SerPl-mCncon 99-61-6030Fzuflleoc (Vitamin B12) [Mass/Vol]483 pg/fWAxbvnt148-4460CsmtjlgkhTrumbull Regional Medical Center on above: Order Comment: Specimen Type: BLOOD SPECIMENOrdering Facility: [facility] Address:[address] [place], [place] [address]Performed By: #### 2276- 4, 14614-6, 2132-9, 3016-3 ####[facility] LABCLIA [id number] [facility] [id number] [place], [place] [address] [facility] OF AMERICACNPNon 23-04-5861XKMIIfpiqdhdr ([place]) SANNA RENDON ([id number]) 1985 F Date Time Provider Department 10/24/24 [...] Date Reviewed: 08/26/2024 Reviewed by: Katherine Negrete APRN.BRIDGE SAW OPERATOR - Fully Assessed Reason for Visit: [...] 05/28/2024 Encounter Status:Closed by KAUR DUNHAM on 10/24/24[facility] OB TRANSVAGINALon 57-54-9794IM OB TRANSVAGINALEXAM: US OB TRANSVAGINAL HISTORY: Viability, [...] II, MD, PHD at 21-Oct-2024 08:31:21 AM [facility]-[place] TeleradiologyNormalNot AvailableComment on above:Order Comment: US OB VIABILITY PLEASE PERFORM TRANSVAGINAL ULTRASOUND IF INDICATED No LMP recorded.ALL CBC WITH AUTO DIFFon 70-14-9529BCPHLYDXA ABSOLUTE TNKO3DSMJ HealthcareBasophils/100 WBC (Bld)0.2 %0.2 - 2.0 %NOMS [...] HealthcareMCHC (RBC) [Mass/Vol] 34.6 g/dL29.9 - 35.2 g/dLNONC HealthcareMCV (RBC) [Entitic vol]86.2 fL81.0 - 99.0 fLNOMS HealthcareMONOCYTES ABSOLUTE AUTO0.6NOMS HealthcareMonocytes/100 WBC (Bld)7.2 %1.7 - 12.0 %NOMS HealthcareNEUTROPHILS ABSOLUTE AUTO5.6NOReynolds County General Memorial Hospital Neutrophils/100 WBC (Bld)62.8 %43.0 - 75.0 %NOMS HealthcarePlatelet mean volume (Bld) [Entitic vol]10.1 fL9.5 - 13.5 fLNOReynolds County General Memorial HospitalTB EO #0NOReynolds County General Memorial Hospital TBH XCG364ZQNPFulton State Hospital RBC4.42NOReynolds County General Memorial HospitalTB WBC8.9NOReynolds County General Memorial Hospital CLINISYNCDrug Screen, Urineon 16-06-0672Ttlyhflcyfo/MethamphetamineNegative [facility] Systemedica Health SystemBarbituratesNegativeBrightlook HospitalMedica Health System BenzodiazepinesNegativeProMedica Health SystemCocaine MetaboliteNegative Pro[facility] Health SystemEcstasyNegativeBrightlook HospitalMedica Health SystemMethadoneNegative [facility] Systemedica Health SystemOpiatesNegativeBrightlook HospitalMedica Health SystemOxycodoneNegative [facility] Systemedica Health SystemPhencyclidineNegativeBrightlook HospitalMedica Health SystemThc Marijuana, UrineNegativeGreene Memorial Hospitalca Health SystemHBV surface Ag IA Qlon 10-06-2024 Hepatitis B Surface AntigenNegativeUC Health SystemHIV 1+2 Ab+HIV1 p24 Ag IA Qlon 80-11-8311YUX 1&2 AB/AGNegativeUC Health SystemHemoglobin A1con 97-25-1245OdJ0e (Bld) [Mass fraction]5.9 %4.0 - 6.0 %UC Health SystemNo Panel Informationon 42-50-0629LCOS HealthcareTSHon 92-16-7670Glwxeav Stimulating (3Rd Generation) Hormone/ Tsh1.131UC Health SystemType and screenon 39-86-3547Hlt/Rh(D)NegativeProDunlap Memorial HospitalHCG ( test) Ql (U)on 34-59-9843Wxvfbeaqkzmwxk and review of laboratory resultsAbnormalSSM Health Care Preg Test, UrPositiveNegativeFulton State Hospital HealthcareUrinalysis macro (dipstick) panel (U)on 81-90-2072Xppckpubv, UANegativeNegative - 4(70) +++ mg/dL [facility] HealthcareBlood, [...] - 12 mg/dLNOMS HealthcareNOMS HealthcareUS OB TRANSVAGINALon 57-67-2787[place], [place] [address] Ultrasound Report Signed Patient: SANNA RENDON MR#: [id number] : 1985 Acct:[id number] Age/Sex: 38 / F ADM Date: 09/11/24 Loc: US Attending Dr: Wilton Herrmann D.O. Ordering Physician: Wilotn Herrmann D.O. Date of Service: 09/11/24 Procedure(s): US OB transvaginal Accession Number(s): [id number] cc: Wilton Herrmann D.O.; PENELOPE CASAS [place] [id number] Patient Name: SANNA RENDON MRN: [id number] date: 1985 Sex: F Assigned Patient Location: US Current Patient Location: US Accession/Order Number: [id number] Exam Date: 09/11/2024 11:34 Report Date: 09/11/2024 [...] Montano M.D. 09/11/2024 11:36 AM Dictation Location: [place] [address] Electronically authenticated by: [id number] Y Date: 09/11/2024 11:36 Dictated By: Prudence Montano M.D. Signed By: 09/11/24 1138 DD/ 1136 TD/TT: Fuel Cell Systems Engineer:TBHRadiology, Radiologist, MD - 09/11/2024 [place] [address] Ultrasound Report Signed Patient: SANNA RENDON MR#: [id number] : 1985 Acct:[id number] Age/Sex: 38 / F ADM Date: 09/11/24 Loc: US Attending Dr: Wilton Herrmann D.O. Ordering Physician: Wilton Herrmann D.O. Date of Service: 09/11/24 Procedure(s): US OB transvaginal Accession Number(s): [id number] cc: Wilton Herrmann D.O.; PENELOPE CASAS [address] [address] Patient Name: SANNA RENDON MRN: [id number] date: 1985 Sex: F Assigned Patient Location: US Current Patient Location: US Accession/Order Number: [id number] Exam Date: 09/11/2024 11:34 Report Date: 09/11/2024 [...] Montano M.D. 09/11/2024 11:36 AM Dictation Location: [place] [address] Electronically authenticated by: [id number] Y Date: 09/11/2024 11:36 Dictated By: Prudence Montano M.D. Signed By: 09/11/24 1138 DD/ 1136 TD/TT: Fuel Cell Systems Engineer: [facility] HealthcareRadiology Study observation (narrative)[facility] OB TRANSVAGINALOrdered By: Radiologist Radiology on 65-43-4366[facility] Work Phone: bhcg Quanton 11-28-6192NXD.beta subunit Vu49704 m[IU]/mLHigh1-3[facility]. Finan CenterComment on above:Result Comment: 'F NON < 1 - 3' ' 0.2 - 1 WEEK = 5 TO 50' ' 1 - 2 WEEKS = 50 - 500' ' 2 - 3 WEEKS = 100 - 5000' ' 3 - 4 WEEKS = 500 - 05193' ' 4 - 5 WEEKS = 1000 - 60992' ' 5 - 6 WEEKS = 69711 - 245065' ' 6 - 8 WEEKS = 41330 - 323553' ' 8 - 12 WEEKS = 06777 - 354736'Performed By: #### [id number] #### [facility] [address] [place], [place] [address]Eolrtroghx Visit Summaryon 41-63-9767Capcktlooa Visit Summary Ambulatory Visit Summary SANNA RENDON :1985 Visit Date:09/07/2024 Ambulatory Visit Instructions Your Diagnosis Viral URI with cough Cough Your Care Team Attending Physician - Romulo Chiu PA-C Primary Care Physician - Penelope CASAS DO, FAAFP This Is Your Medications List Contact prescribing physician if questions or concerns enoxaparin (Lovenox 40 mg/0.4 mL Injection) ergocalciferol (Vitamin D) fluticasone nasal (Flonase 0.05 mg/inh [place]) levothyroxine (levothyroxine 25 mcg (0.025 mg) Tab) [...] EDT With: Penelope CASAS DO, FAAFP Where: [facility] [address], [place] [address]- Medications What How Much When Instructions Unchanged enoxaparin (Lovenox 40 mg/ 0.4 mL Injection) 40 Milligram Subcutaneous Every 24 hours Contact prescribing physician if questions or concerns Unchanged ergocalciferol (Vitamin D) 2,000 International unit By Mouth Every week Contact prescribing physician if questions or concerns Unchanged fluticasone nasal (Flonase 0.05 mg/ inh [place]) 2 Sprays Nasal Inhalation Every day each [...] you for choosing us for your care. [facility] Medicine Office/Clinic Noteon 90-82-5888Vlfmgv Medicine Office/Clinic NoteBristol County [facility] Medicine Office/Clinic Note Chief Complaint cough, [...] created with voice recognition software. Occasional wrong-word or???kmzai-f-rpbh??? substitutions may have occurred due to the [...] days ago on Sunday. Has been using tgli-akb-eqpcvtk cough drops and Flonase for her allergies. [...] duration. Discussed antibiotics un (more content not included)...[facility] HospitalComment on above:Result Comment: Electronically Signed By: Aram QUINTEROS, Romulo Lynn\.br\Date and Time Signed: 09/07/2509:46 EDTCNPNon 69-88-4886QSPCClmjggdyk (HEMASA) SANNA REDNON ([id number]) 1985 F Date Time Provider Department 09/02/24 [...] Date Reviewed: 08/26/2024 Reviewed by: Katherine Negrete APRN.BRIDGE SAW OPERATOR - Fully Assessed Reason for Visit: [...] 05/28/2024 Encounter Status:Closed by RACHAEL JOHNSON on 09/03/24[facility] Quanton 96-71-5274GLG.beta subunit Qn558 m[IU]/mLHigh1-3[facility] Fin[facility] CenterComment on above:Result Comment: 'F NON < 1 - 3' ' 0.2 - 1 WEEK = 5 TO 50' ' 1 - 2 WEEKS = 50 - 500' ' 2 - 3 WEEKS = 100 - 5000' ' 3 - 4 WEEKS = 500 - 37529' ' 4 - 5 WEEKS = 1000 - 43859' ' 5 - 6 WEEKS = 60234 - 446609' ' 6 - 8 WEEKS = 70644 - 530307' ' 8 - 12 WEEKS = 43404 - 876962'Performed By: #### [id number] #### [facility] [address], [place] [address]XyCW Quanton 79-84-0967TBF.beta subunit Qn188 m[IU]/mLHigh1-3 [facility] HospitalComment on above:Result Comment: 'F NON < 1 - 3' ' 0.2 - 1 WEEK = 5 TO 50' ' 1 - 2 WEEKS = 50 - 500' ' 2 - 3 WEEKS = 100 - 5000' ' 3 - 4 WEEKS = 500 - 12861' ' 4 - 5 WEEKS = 1000 - 47680' ' 5 - 6 WEEKS = 17035 - 607180' ' 6 - 8 WEEKS = 40584 - 334813' ' 8 - 12 WEEKS = 49439 - 258170'Performed By: #### [id number] #### 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] Malaise and fatigue [R53.81, R53.83] Vitamin D deficiency [E55.9] Order(s):COMPLETE BLOOD COUNT AND DIFFERENTIAL [SQCBCDIF] Order #: [id number] FUTURE COMPREHENSIVE METABOLIC PANEL [SQCMP] Order #: [id number] FUTURE THYROID STIMULATING HORMONE [SQTSH] Order #: [id number] FUTURE IRON AND TIBC [SQIRON] Order #: [id number] FUTURE FERRITIN [SQFERR] Order #: [id number] FUTURE VITAMIN D 25 HYDROXY [SQVITD] Order #: [id number] FUTURE VITAMIN B12 [SQB12] Order #: [id number] FUTURE Prescriptions as of 08/26/2024 - enoxaparin [...] 05/28/2024 Encounter Status:Closed by KATHERINE NEGRETE on 08/26/24[facility] Quanton 91-13-6161YJQ.beta subunit Qn83 m[IU]/mLHigh1-3FSelect Medical Cleveland Clinic Rehabilitation Hospital, AvonComment on above:Result Comment: 'F NON < 1 - 3' ' 0.2 - 1 WEEK = 5 TO 50' ' 1 - 2 WEEKS = 50 - 500' ' 2 - 3 WEEKS = 100 - 5000' ' 3 - 4 WEEKS = 500 - 01078' ' 4 - 5 WEEKS = 1000 - 99581' ' 5 - 6 WEEKS = 63441 - 937742' ' 6 - 8 WEEKS = 48995 - 505612' ' 8 - 12 WEEKS = 62691 - 349286'Performed By: #### [id number] #### [facility] [address], [place] [address]UvKT Quanton 11-76-6507EFZ.beta subunit Qn22 m[IU]/mLHigh1-3 [facility] HospitalComment on above:Result Comment: 'F NON < 1 - 3' ' 0.2 - 1 WEEK = 5 TO 50' ' 1 - 2 WEEKS = 50 - 500' ' 2 - 3 WEEKS = 100 - 5000' ' 3 - 4 WEEKS = 500 - 76578' ' 4 - 5 WEEKS = 1000 - 54507' ' 5 - 6 WEEKS = 62069 - 703978' ' 6 - 8 WEEKS = 59946 - 880406' ' 8 - 12 WEEKS = 02130 - 222834'Performed By: #### [id number] #### [facility] [address], [place] [address]GXKCUJGUFCqbdwis By: SYSTEM SYSTEM on 16-35-9464LVZ.beta subunit Qn22 m[IU]/mLHigh1 - 3 mIU/mLRemisol ChemComment on above:Result Comment: 'F NON < 1 - 3' ' 0.2 - 1 WEEK = 5 TO 50' ' 1 - 2 WEEKS = 50 - 500' ' 2 - 3 WEEKS = 100 - 5000' ' 3 - 4 WEEKS = 500 - 37334' ' 4 - 5 WEEKS = 1000 - 07579' ' 5 - 6 WEEKS = 91012 - 713869' ' 6 - 8 WEEKS = 45689 - 525402' ' 8 - 12 WEEKS = 68156 - 975352'TSH Qn1.86 m[IU]/LNormal0.34 - 5.60 mcIU/mLRemisol ChemTSHon 70-97-7929TJX Qn1.86 m[IU]/LNormal0.34-5.60[facility] HospitalComment on above:Performed By: #### [id number] #### [facility] [address], [place] [address]LNR ( test) Ql (U)on 73-89-9512Vvkqbwrcvbvejh and review of laboratory resultsNoCommunity Health SystemsPreg Test, UrNegativeNegative [facility].Interpretation:on 38-29-2968EIU Ab IA QlComment Invalid Interpretation [facility] CenterComment on above:Result Comment: Not infected with HCV unless early or acute infection is suspected (which may be delayed in an immunocompromised individual), or other evidence exists to indicate HCV infection. Performed at: [address] [id number] PhD Jd Garciaformed By: #### [id number] #### [facility] [address], [place] [address]HCL Antibody RFX to Quant PCRon 87-27-0976LDW Ab IA Ql Non-ReactiveInvalid Interpretation CodeNon ReactiveBellevue Hospital Comment on above:Result Comment: Performed at: [address] [id number] PhD Jd Garciaformed By: #### [id number] #### [facility] [address], [place] [address]ZXG Screen 4th Generation wRfxon 12-67-3978XJM 1+2 Ab+HIV1 p24 Ag IA QlNon-ReactiveInvalid Interpretation CodeNon ReactiveBellevue HospitalComment on above:Result Comment: HIV-1/HIV-2 antibodies and HIV-1 p24 antigen were NOT detected. There is no laboratory evidence of HIV infection. HIV Negative Performed at: [address] [id number] PhD Jd Garciaformed By: #### [id number] #### [facility] [address], [place] [address]Pwz Be Agon 24-04-5957FVQ e Ag IA QlNegativeInvalid Interpretation CodeNegativeBellevue HospitalComment on above:Result Comment: Performed at: [address] [id number] PhD Jd Garciaformed By: #### [id number] #### [facility] [address], [place] [address]Tcv Bs Agon 49-10-7513LQW surface Ag IA QlNegativeInvalid Interpretation CodeNegativeBellevue HospitalComment on above:Result Comment: Performed at: [address] [id number] PhD Jd Garciaformed By: #### [id number] #### [facility] [address], [place] [address]YZLKPGUPNVvcfsnq By: SYSTEM SYSTEM on 67-89-7156Xclrguz [Mass/Vol]5.0 g/dLNormal3.3 - 5.0 gm/dLRemisol ChemAlbumin/Globulin [Mass ratio] 1.6 {ratio}Normal1.1 - 2.2Remisol ChemALP [Catalytic activity/Vol]49 [iU]/d Rosfuz10 - 98 Int._Unit/LRemisol ChemALT No additional P-5'-P [Catalytic activity/Vol]18 [iU]/dNormal6 - 46 Int._Unit/LRemisol ChemAnion gap [Moles/Vol] 13 mmol/LNormal6 - 16 mEq/LRemisol ChemAST [Catalytic activity/Vol]15 [iU]/d Normal5 - 43 Int._Unit/LRemisol ChemBilirubin [Mass/Vol]0.4 mg/dLNormal0.0 - 1.1 mg/dLRemisol ChemCalcium [Mass/Vol]10.0 mg/dLNormal8.9 - 11.1 mg/dLRemisol Chem Chloride [Moles/Vol]100 mmol/BDjs022 - 111 mmol/LRemisol ChemCO2 [Moles/Vol]25 mmol/QBltipf05 - 31 mmol/LRemisol ChemCreatinine [Mass/Vol]0.7 mg/dLNormal0.5 - 1.3 mg/dLRemisol FwlpmAZB130 mL/min/1.73 m0Zccdgs>=59mL/min/1.73 x3Fermpqq Chem Globulin (S) [Mass/Vol]3.1 g/dLNormal1.4 - 4.0 gm/dLRemisol ChemGlucose [Mass/Vol]82 mg/qLUycosv67 - 199 mg/dLRemisol ChemPotassium [Moles/Vol]3.8 mmol/LNormal3.5 - 5.3 mmol/LRemisol ChemProtein [Mass/Vol]8.1 g/dLHigh6.0 - 7.8 gm/dLRemisol ChemSodium [Moles/Vol]134 mmol/PUlq414 - 145 mmol/LRemisol ChemUrea nitrogen [Mass/Vol]7 mg/dLNormal5 - 21 mg/dLRemisol ChemUrea nitrogen/Creatinine [Mass ratio]10 mg/ldMrvebd99 - 20Remisol ChemCMPon 98-69-9287Xatqyyd [Mass/Vol]5.0 g/dLNormal3.3-5.0[facility] Comment on above:Performed By: #### [id number] #### [facility] [address], [place] [address]Uofutvg/Globulin (S) [Mass conc ratio]1.9Cpfnzu5.1-2.2FSelect Medical Cleveland Clinic Rehabilitation Hospital, AvonComment on above:Performed By: #### [id number] #### [facility] [address] [place] [address]CWW [Catalytic activity/Vol]49 Int._Unit/PGcyfxp68-50MbdjztBellevue HospitalComment on above:Performed By: #### [id number] #### [facility] [address], [place] [address]VCN No additional P-5'-P [Catalytic activity/Vol]18 Int._Unit/L Normal6-46[facility] HospitalComment on above:Performed By: #### [id number] #### [facility] [address] [place] [address]Izboh gap [Moles/Vol]13 mmol/LNormal6-16[facility] HospitalComment on above:Performed By: #### [id number] #### [facility] [address] [place] [address]FHZ [Catalytic activity/Vol]15 Int._Unit/LNormal5-43[facility] HospitalComment on above:Performed By: #### [id number] #### [facility] [address] [place] [address]Naitpqite [Mass/Vol]0.4 mg/dLNormal0.0-1.1FSelect Medical Cleveland Clinic Rehabilitation Hospital, AvonComment on above:Performed By: #### [id number] #### [facility] [address] [place] [address]Jxcoiod [Mass/Vol]10.0 mg/dLNormal8.9-11.1FSelect Medical Cleveland Clinic Rehabilitation Hospital, AvonComment on above:Performed By: #### [id number] #### [facility] [address] [place] [address]Iifcodcp [Moles/Vol]100 mmol/IIcl356-137QxewcfBellevue HospitalComment on above:Performed By: #### [id number] #### [facility] [address] [place] [address]QU6 [Moles/Vol]25 mmol/TDsqijt65-87WddteyBellevue Hospital Comment on above:Performed By: #### [id number] #### [facility] [address], [place] [address]Foikhvkaha [Mass/Vol]0.7 mg/dLNormal0.5-1.3FSelect Medical Cleveland Clinic Rehabilitation Hospital, AvonComment on above:Performed By: #### [id number] #### [facility] [address], [place] [address]Kdkwwjzw (S) [Mass/Vol]3.1 g/dLNormal1.4-4.0[facility] HospitalComment on above:Performed By: #### [id number] #### [facility] [address], [place] [address]Lzbxtgm [Mass/Vol]82 mg/nSJaqseq42-065LerjdpBellevue HospitalComment on above:Performed By: #### [id number] #### [facility] [address], [place] [address]Hpkmjinhq [Moles/Vol]3.8 mmol/LNormal3.5-5.3FSelect Medical Cleveland Clinic Rehabilitation Hospital, AvonComment on above:Performed By: #### [id number] #### [facility] [address], [place] [address]Bctavlx [Mass/Vol]8.1 g/dLHigh6.0-7.8[facility] HospitalComment on above:Performed By: #### [id number] #### [facility] [address], [place] [address]Cutzbe [Moles/Vol]134 mmol/WCag543-673UxjsbmBellevue HospitalComment on above:Performed By: #### [id number] #### [facility] [address], [place] [address]Tlat nitrogen [Mass/Vol]7 mg/dLNormal5-21[facility] HospitalComment on above:Performed By: #### [id number] #### [facility] [address], [place] [address]Zcpd nitrogen/Creatinine [Mass ratio]10 No FcvazZkpnio40-71 [facility] HospitalComment on above:Performed By: #### [id number] #### [facility] [address] [place], [place] [address]pFKNja 70-58-6746yOTF072 mL/min/1.73 o9Ipiwyd>=59Fishamadou Thomas B. Finan CenterComment on above:Performed By: #### [id number] #### [facility] [address] [facility] [place], [place] [address]Uzqjkj Medicine Office/Clinic Noteon 54-46-9332Feyram Medicine Office/Clinic NoteFami Medicine Office/Clinic Note HPI [...] RESENDEZ FAAFP, Penelope Tony, FAM, PED [address], [place] [address]- Additional Instructions: Patient Education Bradycardia, [...] exam Historical Abdominal pain (more content not included)...[facility] Comment on above:Result Comment: Electronically Signed By: Inez Banegas\.br\Date and Time Signed: 07/08/24 08:54 EDTAmbulatory Visit Summaryon 45-04-9690Rmeftvhqog Visit SummaryAmbulatory Visit Summary SANNA RENDON :1985 [...] mg Tab) fluticasone nasal (Flonase 0.05 mg/inh [place]) levothyroxine (levothyroxine 25 mcg (0.025 mg) Tab) [...] EDT With: Penelope CASAS DO, FAAFP Where: [facility] [address] [place] [address]- You Need to Schedule the Following Appointments Follow Up with Penelope CASAS DO, FAAFP, FAM, PED When: Where: [address] [place] [address]- Medications What How Much When Why Instructions [...] Unchanged fluticasone nasal (Flonase 0.05 mg/ inh [place]) 2 Sprays Nasal Inhalation Every day each [...] you for choosing us for your care. [facility] Hospital[facility] Quanton 17-46-2133NEH.beta subunit Qn1 m[IU]/mLNormal1-3[facility] Finan CenterComment on above:Result Comment: 'F NON < 1 - 3' ' 0.2 - 1 WEEK = 5 TO 50' ' 1 - 2 WEEKS = 50 - 500' ' 2 - 3 WEEKS = 100 - 5000' ' 3 - 4 WEEKS = 500 - 22733' ' 4 - 5 WEEKS = 1000 - 58049' ' 5 - 6 WEEKS = 82059 - 894170' ' 6 - 8 WEEKS = 43182 - 843831' ' 8 - 12 WEEKS = 44268 - 904061'Performed By: #### [id number] #### [facility] [address], [place] [address]BBQUY 2 Mutationson 84-91-7042WUQIM InterpretationSee Note [facility] HospitalComment on above:Result Comment: Indication for testing: Determine genetic contribution to hyperhomocysteinemia. 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 The [employer] Practice Guidelines indicate [...] a contributing factor to hyperhomocysteinemia. Variants Tested: c.665C>T(p.Lje655Hqg) and c.1286A>C(p.Vrh264Ldu). (legacy names C677T and R2373F, respectively). Clinical Sensitivity: Undefined; hyperhomocysteinemia is caused [...] developed and its performance characteristics determined by [facility]. It has not been cleared or approved by the US Food and Drug Administration. This test was performed in a CLIA certified laboratory and is intended for clinical purposes. Counseling and informed consent are recommended for genetic testing. Consent forms are available online. Performed By: [facility] [address] [place] [address] Drug Worker: Yayo Moncada MD, PhD CLIA Number: [id number] Mutation: A5491IJogcpopwlrRdsychQjxmyUCHealth Grandview HospitalMTHFR Mutation: J895VWdpkkhvrKlvypzWeprgUCHealth Grandview Hospital MTHFR PCR SpecimenWhole BloodNormMt. San Rafael HospitalAnti-nuclear Ab (NASEEM) Reflexon 79-33-0498Lpbz-Nuclear Ab (NASEEM), IgG by ELISANot detectedNormal None DetYuma District HospitalComment on above:Result Comment: If suspicion of connective tissue disease is strong and NASEEM EIA is negative, consider testing for NASEEM by IFA (2016240). No antibodies to Anti-Nuclear Antibodies (NASEEM) detected. The Extractable Nuclear Antigen Antibodies ([employer] PUBLICATION[employer], Christianson, SSA 52, SSA 60, Scleroderma, Brianna-1 and SSB) and Double Stranded DNA (dsDNA) Antibody, IgG will not be performed. INTERPRETIVE INFORMATION: Anti-Nuclear Antibodies (NASEEM), IgG by ALXE Antinuclear Antibodies (NASEEM), IgG by ALEX: NASEEM specimens are screened using enzyme-linked immunosorbent assay (ALEX) methodology. All ALEX results reported as Detected are further tested by indirect fluorescent assay (IFA) using HEp-2 substrate with an IgG-specific conjugate. The NASEEM ALEX screen is designed to detect antibodies against dsDNA, histones, SS-A (Ro), SS-B (La), Christianson, Christianson/[employer]AL[employer]PRESENT[employer]IVE PUBLICATIONS, Scl-70, Brianna-1, centromeric proteins, other antigens extracted from the HEp-2 cell nucleus. NASEEM ALEX assays have been reported to have lower sensitivities than NASEEM IFA for systemic autoimmune rheumatic diseases (SARD). Negative results do not necessarily rule out SARD. Performed By: [facility] [address] [place] [address] Drug Worker: Yayo Moncada MD, PhD CLIA Number: [id number]-4 (Histidyl-tRNA Synthetase) Ab, IgGon 67-54-1333Pj-1 (Histidyl-tRNA Synthetase) Ab, IgG0 AU/mLNormal0-40[facility] Comment on above:Result Comment: INTERPRETIVE INFORMATION: Brianna-1 Antibody, IgG 29 AU/mL or less.........Negative 30-40 AU/mL..............Equivocal 41 AU/mL or greater......Positive Presence of Brianna-1 (antihistidyl transfer RNA [t-RNA] synthetase) antibody is associated with polymyositis and may also be seen in patients with dermatomyositis. Brianna-1 antibody is associated with pulmonary involvement (interstitial lung disease), Raynaud phenomenon, arthritis, and ceramic tile mechanic's hands (implicated in antisynthetase syndrome). Performed By: [facility] [address] [place], [place] [id number] Drug Worker: Yayo Moncada MD, PhD CLIA Number: [id number] and SSB Abs, IgGon 96-53-3407UCL 52 (Ro) (KELLEN) Ab, IgG1 AU/mLNormal0-40[facility] HospitalComment on above:Result Comment: INTERPRETIVE INFORMATION: SSA-52 [...] interstitial lung disease.SSB (La) (KELLEN) Ab, IgG0 AU/mLNormal0-40[facility] Comment on above:Result Comment: INTERPRETIVE INFORMATION: [...] (PSS) also have this antibody. Performed By: [facility] [address] [id number] Drug Worker: Yayo Moncada MD, PhD CLIA Number: [id number] Antibodies, IgG/IgMon 46-23-5425Agznswunkcv Ab IgG95 GPLCritically high<=14[facility] HospitalComment on above: Result Comment: INTERPRETIVE INFORMATION: [...] other criteria phospholipid antibody tests. Performed by [facility], [address] [place] [address] www.Robin, Zhang Bledsoe MD, Lab. Director IA Number: [id number] Ab IgM<10Normal<=12[facility] HospitalComment on above:Result Comment: INTERPRETIVE INFORMATION: Anti- [...] other criteria phospholipid antibody tests. Performed by [facility], [address] [place] [address] www.Robin, Zhang Bledsoe MD, Lab. Director CLIA Number: [id number] (Smooth Muscle) Antibody, IgAon 90-76-6831G-Actin Ab, IgA1.8 UnitsNormal0.0-24.9[facility] HospitalComment on above: Result Comment: INTERPRETIVE INFORMATION: F-Actin (Smooth Muscle)Antibody, IgA 20.0 Units or less.....Negative 20.1 - 24.9 Units......Equivocal 25.0 Units or greater..Positive The presence of IgA antibodies against F-Actin in patients having positive serologic markers for celiac disease, such as antiendomysial, anti-transglutaminase, and/or anti-gliadin peptide IgA, indicates the presence of intestinal villus atrophy. Positive results should be confirmed with biopsy. Performed By: [facility] [address] [place] [address] Drug Worker: Yayo Moncada MD, PhD CLIA Number: [id number] Ab, IgG by ELISAon 71-93-8721htBFJ Ab, IgG by ALEX 4 IUNormal0-24[facility] HospitalComment on above:Result Comment: INTERPRETIVE INFORMATION: Double-Stranded DNA (dsDNA) Ab IgG ALEX 24 IU or less........Negative 25-30 IU.............Borderline Positive 30-60 IU.............Low Positive 60-200 IU............Positive 201 IU or greater....Strong Positive Positivity for anti-double stranded DNA (anti-dsDNA) IgG antibody is a diagnostic criterion of systemic lupus erythematosus (SLE). Specimens are initially screened by enzyme-linked immunosorbent assay (ALEX). If ordered as reflex ([id number]), positive ALEX results (>24 IU) will be [...] recommendations for testing may be found at [email or web address]/content/afmpftei-kbuve-[email or web address]. Performed by [facility], [address] [place] [address],[place] [address] www.Robin, Zhang Bledsoe MD, Lab. Director CLIA Number: [id number] Proteinon 36-35-0186ERS [Mass/Vol]mg/LNormal 0.0-5.0[facility] HospitalComment on above:Performed By: #### CRP #### [facility] [address] [place] [address] Htmirpobcftfy Rateon 49-98-6238Tfygddgtyuxsu Rate18 mmNormal0-20 [facility] HospitalComment on above:Result Comment: ESR Units mm/Hr Performed By: #### ESR #### [facility] [address] [place] [address] Ydbtif Medicine Office/Clinic Noteon 67-68-9426Cseife Medicine Office/Clinic NoteFanorfolk state hospital Medicine Office/Clinic Note Chief Complaint C/O: [...] bedtime), # 90 tab(s), Refills(s) 4, Pharmacy: [facility] 1985, 168, cm, 06/30/24 8:36:00 EST, Height/Length Dosing, 97.2, kg, 06/30/24 8:36:00 EST, Weight Dosing Total time spent preparing the chart, conducting of the encounter with the patient and family and time spent documenting, reviewing, and ordering tests was 25 minutes. Follow-up With When Contact Information Penelope CASAS DO, FAAFP, CHRIS, PED In 2 months [address], [place] [address]- (419 (more content not included)...[facility] Comment on above:Result Comment: Electronically Signed By: Penelope CASAS DO, FAAFP\.br\Date and Time Signed: 06/30/24 09:24 ESTRECURRENT VAGINITIS (HTRX)on 14-77-9533NLHGGRPSA OIYKDBV1AUWA HealthcareATOPOBIUM VAGINAENot detectedNOMS HealthcareBVAB 2,3 (BACTERIAL VAGINOSIS ASSOCIATED BACTERIA 2, 3); MOBILUNCUS [id number] HealthcareBVAB 2,3 (BACTERIAL VAGINOSIS ASSOCIATED BACTERIA 2, 3); MOBILUNCUS SPPNot detectedNOMS HealthcareCANDIDA ALBICANS, PARAPSILOSIS, [id number] HealthcareCANDIDA ALBICANS, PARAPSILOSIS, TROPICALISNot detected NOMS HealthcareCANDIDA TEDSNUOW4JWJY HealthcareCANDIDA GLABRATANot detectedNOMS HealthcareCANDIDA QNAEUU4UAJN HealthcareCANDIDA KRUSEINot detectedNOMS HealthcareCHLAMYDIA UYARBAPZQVT2DAET HealthcareCHLAMYDIA TRACHOMATISNot detected NOMS HealthcareGARDNERELLA FUNWRCQCB9WVAI HealthcareGARDNERELLA VAGINALISNot detectedNOMS HealthcareMEGASPHAERA (TYPES 1, 2)0NOMS HealthcareMEGASPHAERA (TYPES 1, 2)Not detectedNOMS HealthcareMYCOPLASMA YDFIKCTMPN4FHKO Healthcare MYCOPLASMA GENITALIUMNot detectedNOMS HealthcareNEISSERIA ZOZXIWWEKWA7RJOB HealthcareNEISSERIA GONORRHOEAENot detectedNOMS HealthcareTRICHOMONAS VAGINALIS0 NOMS HealthcareTRICHOMONAS VAGINALISNot detectedNOMS HealthcareNOMS Healthcare Urinalysis macro (dipstick) panel (U)on 62-42-7256Yhygdnkxt, UANegativeNegative - 4(70) +++ mg/dLNOMS HealthcareBlood, UANegativeNegative [...] - 12 mg/dLNOMS HealthcareNOMS HealthcareAmbulatory Visit Summaryon 06-03-4348Gqbztjhmmo Visit SummaryAmbulatory Visit Summary SANNA RENDON :1985 [...] (Vitamin D) fluticasone nasal (Flonase 0.05 mg/inh [place]) levothyroxine (levothyroxine 25 mcg (0.025 mg) Tab) [...] EDT With: Penelope CASAS DO, FAAFP Where: [facility] [address] [place] [address] [place] [address]- Medications What How Much When Why Instructions New azithromycin (Zithromax 250 mg Tab) 1 Packets By Mouth As Directed Sinusitis Duration: 5 Days Refills: 1 as directed on package labeling Pickup at [facility] 1985 New fluconazole (Diflucan 150 mg Tab) 1 Tablets By Mouth Every 7 days Yeast infection Refills: 1 Pickup at [facility] 1985 Unchanged enoxaparin (Lovenox 40 mg/ 0.4 mL Injection) 40 Milligram Subcutaneous Every 24 hours Contact prescribing physician if questions or concerns Unchanged ergocalciferol (Vitamin D) 2,000 International unit By Mouth Every week Contact prescribing physician if questions or concerns Unchanged fluticasone nasal (Flonase 0.05 mg/ inh [place]) 2 Sprays Nasal Inhalation Every day each [...] physician if questions or concerns Pharmacy Information [facility] 1985: [address] [place], [place] [id number] [phone] Allergies Milk Products (Illness) ciprofloxacin (Numbness and [...] you for choosing us for your care. [facility] Medicine Office/Clinic Noteon [id number] Medicine Office/Clinic NoteBristol County [facility] Office/Clinic Note Chief Complaint Sinus [...] day(s), # 6 tab(s), Refills(s) 1, Pharmacy: [facility] 1985, 168, cm, 06/09/24 14:03:00 EST, Height/Length Dosing, 98.4, kg, 06/19/24 16:19:00 EST, Weight Dosing Yeast infection (B37.9: Candidiasis, unspecified) Ordered: fluconazole, 150 mg = 1 tab(s), Oral, q7day, # 4 tab(s), Refills(s) 1, Pharmacy: [facility] 1985, 168, cm, 06/09/24 14:03:00 EST, [...] Oral, q7day, 1 refills Flonase 0.05 mg/inh [place], 2 spray(s), Nasal, Daily, 11 refills levothyroxine [...] Given Patient Refuses influe (more content not included)...NormalBellevue HospitalComment on above:Result Comment: Electronically Signed By: MANDI BRYANT\.br\Date and Time Signed: 06/19/24 16:37 ESTCBC w/ Auto Diffon 06-12-2024 Basophils/100 WBC (Bld)0.3 %Normal0.0-2.0Bellevue HospitalComment on above:Performed By: #### [id number] #### [facility] [address], [place] [address]Semcpnvin/Leukocytes Auto (Bld) [Pure # fraction]0.0 E9/LNormal 0.0-0.2FSelect Medical Cleveland Clinic Rehabilitation Hospital, AvonComment on above:Performed By: #### [id number] #### [facility] [address], [place] [address]Wowfirhbflo (Bld) [#/Vol]0.0 E9/LNormal0.0-0.5FSelect Medical Cleveland Clinic Rehabilitation Hospital, AvonComment on above:Performed By: #### [id number] #### [facility] [address], [place] [address]Lxncfrkghjb/100 WBC (Bld)0.3 %Normal0.0-8.0Bellevue HospitalComment on above:Performed By: #### [id number] #### [facility] [address], [place] [address]Uedgwuchrcd distribution width (RBC) [Ratio]14.0 %Normal 10.9-14.2FSelect Medical Cleveland Clinic Rehabilitation Hospital, AvonComment on above:Performed By: #### [id number] #### [facility] [address] [place] [address]Ridqcmgruu (Bld) [Volume fraction]40.9 %Jmjvwq54.0-46.0Bellevue HospitalComment on above:Performed By: #### [id number] #### [facility] [address] [place] [address]Xphkdffmhh (Bld) [Mass/Vol]13.9 g/mXHbrgyf32.0-16.0Bellevue HospitalComment on above:Performed By: #### [id number] #### [facility] [address] [place] [address]Qzqetbxxxmr (Bld) [#/Vol]2.8 E9/LNormal1.0-4.0Bellevue HospitalComment on above:Performed By: #### [id number] #### [facility] [address] [place] [address]Gkyctmfttcz/100 WBC (Bld)24.6 %Vioqjl12.0-50.0Bellevue HospitalComment on above:Performed By: #### [id number] #### [facility] [address] [place] [address]DMM (RBC) [Entitic mass]30.7 cuIvvibs35.0-34.0Bellevue HospitalComment on above:Performed By: #### [id number] #### [facility] [address] [place] [address]ZJWI (RBC) [Mass/Vol]33.9 g/yYLqnexx27.4-36.0Bellevue HospitalComment on above:Performed By: #### [id number] #### [facility] [address] [place] [address]LMZ (RBC) [Entitic vol]90.6 mWXzkrpn91.0-100.0Bellevue HospitalComment on above:Performed By: #### [id number] #### [facility] [address] [place] [address]Bmvprodny (Bld) [#/Vol]0.6 E9/LNormal0.2-1.0Bellevue HospitalComment on above:Performed By: #### [id number] #### [facility] [address] [place] [address]Vhbgqtespez (Bld) [#/Vol]8.0 E9/LHigh2.0-7.5FSelect Medical Cleveland Clinic Rehabilitation Hospital, AvonComment on above:Performed By: #### [id number] #### [facility] [address] [place] [address]Pxbucsjmxkr/100 WBC (Bld)69.6 %Husmmh70.0-75.0Bellevue HospitalComment on above:Performed By: #### [id number] #### [facility] [address] [place] [address]Ofedpbdm327.0 E9/JOuglyg350.0-500.0[facility] Comment on above:Performed By: #### [id number] #### [facility] [address] [place] [address]Afwnzhpy mean volume (Bld) [Entitic vol]8.2 fLNormal6.4-10.8 [facility] HospitalComment on above:Performed By: #### [id number] #### [facility] [address] [place] [address]OGI (Bld) [#/Vol]4.5 E12/LNormal4.3-5.9Bellevue HospitalComment on above:Performed By: #### [id number] #### [facility] [address], [place] [address]XHE corrected for nucl RBC Auto (Bld) [#/Vol]11.5 E9/LHigh 4.0-11.0Bellevue HospitalComment on above:Performed By: #### [id number] #### [facility] [address], [place] [address]EMMTRTDMMDUhlrfdu By: SYSTEM SYSTEM on 35-77-0897Wixpqanxw/100 WBC (Bld)0.3 %Normal0.0 - 2.0 %Remisol HemeBasophils/Leukocytes Auto (Bld) [Pure # fraction]0.0 E9/LNormal0.0 - 0.2 E9/LRemisol HemeEosinophils (Bld) [#/Vol]0.0 E9/LNormal0.0 - 0.5 E9/LRemisol HemeEosinophils/100 WBC (Bld)0.3 %Normal0.0 - 8.0 %Remisol HemeErythrocyte distribution width (RBC) [Ratio]14.0 %Ezxymr53.9 - 14.2 %Remisol HemeHematocrit (Bld) [Volume fraction]40.9 %Dfkzkd71.0 - 46.0 % Remisol HemeHemoglobin (Bld) [Mass/Vol]13.9 g/wFYsndqp16.0 - 16.0 gm/dLRemisol HemeLymphocytes (Bld) [#/Vol]2.8 E9/LNormal1.0 - 4.0 E9/LRemisol Heme Lymphocytes/100 WBC (Bld)24.6 %Haljpm68.0 - 50.0 %Remisol HemeMCH (RBC) [Entitic mass]30.7 paTmvtms30.0 - 34.0 pgRemisol HemeMCHC (RBC) [Mass/Vol]33.9 g/dL Urfcao91.4 - 36.0 gm/dLRemisol HemeMCV (RBC) [Entitic vol]90.6 lQDjzutk99.0 - 100.0 fLRemisol HemeMonocytes (Bld) [#/Vol]0.6 E9/LNormal0.2 - 1.0 E9/LRemisol HemeMonocytes/100 WBC (Bld)5.2 %Normal4.0 - 14.0 %Remisol HemeNeutrophils (Bld) [#/Vol]8.0 E9/LHigh2.0 - 7.5 E9/LRemisol HemeNeutrophils/100 WBC (Bld)69.6 % Qhwckd39.0 - 75.0 %Remisol PhyoSlhnccte538.0 E9/HKujuyd041.0 - 500.0 E9/LRemisol HemePlatelet mean volume (Bld) [Entitic vol]8.2 fLNormal6.4 - 10.8 fLRemisol HemeRBC (Bld) [#/Vol]4.5 E12/LNormal4.3 - 5.9 E12/LRemisol HemeWBC corrected for nucl RBC Auto (Bld) [#/Vol]11.5 E9/LHigh4.0 - 11.0 E9/LRemisol HemeAmbulatory Visit Summaryon 06-08-6259Dmylcrceyy Visit SummaryAmbulatory Visit Summary SANNA RENDON :1985 Visit Date:06/09/2024 Ambulatory Visit Instructions Your Diagnosis Antiphospholipid antibody with hypercoagulable state H/O: CVA Gestational diabetes BMI 35.0-35.9,adult Morbid obesity Your Care Team Attending Physician - Penelope CASAS DO, FAAFP Primary Care Physician - Penelope CASAS DO, FAAFP This Is Your Medications List fluticasone nasal (Flonase 0.05 mg/inh [place]) Contact prescribing physician if questions or concerns [...] EDT With: Penelope CASAS DO, FAAFP Where: [facility] [address], [facility] [place] [address]- Medications What How Much When Instructions New fluticasone nasal (Flonase 0.05 mg/ inh [place]) 2 Sprays Nasal Inhalation Every day Refills: 11 each nostril Pickup at [id number] Unchanged enoxaparin (Lovenox 40 mg/ 0.4 [...] physician if questions or concerns Pharmacy Information [id number]: [address] [place], [place] [phone] Allergies Milk Products (Illness) ciprofloxacin (Numbness and [...] for choosing us for your care. NormalFisher Thomas B. Finan CenterBhCG Quanton 36-53-1843GJC.beta subunit Qn2 m[IU]/mLNormal1-3Fisher Thomas B. Finan CenterComment on above:Result Comment: 'F NON < 1 - 3' ' 0.2 - 1 WEEK = 5 TO 50' ' 1 - 2 WEEKS = 50 - 500' ' 2 - 3 WEEKS = 100 - 5000' ' 3 - 4 WEEKS = 500 - 40324' ' 4 - 5 WEEKS = 1000 - 45992' ' 5 - 6 WEEKS = 83363 - 868261' ' 6 - 8 WEEKS = 05985 - 884919' ' 8 - 12 WEEKS = 91441 - 063751'Performed By: #### [id number] #### [facility] [address], [place] [address]CXOUYZGEWIekxjre By: SYSTEM SYSTEM on 49-93-0950UTN Qn1.97 m[IU]/LNormal0.34 - 5.60 mcIU/mLRemisol ChemFamily Medicine Office/Clinic Noteon 77-71-7145Bbkbtf Medicine Office/Clinic NoteFamily Medicine Office/Clinic Note Chief [...] from inside ear, not outside Moved from [place] Review of Systems PHQ Score Initial [...] antibody with hypercoagulable state (D68.61: Antiphospholipid syndrome) [facility] Department of hematology/oncology following and treating with Lovenox, please see their consultation 05/28/2024. Treats with Lovenox 40 mg subcu every 24 hours 2. H/O: CVA (Z86.79: Personal history of other diseases of the circulatory system) Please see #1. 3. 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 Metformin XR 500 mg tabs [...] PED In 6 months [address] [place] [address]- [phone] (more content not included)...[facility]orrow County HospitalComment on above:Result Comment: Electronically Signed By: Penelope CASAS DO, FAAFP\.br\Date and Time Signed: 06/09/24 14:24 ESTTSHon 39-98-5713BIF Qn1.97 m[IU]/LNormal0.34-5.60Bellevue HospitalComment on above:Performed By: #### [id number] #### [facility] [address] [place], [place] [address]UhIP Quanton 78-58-6507ABH.beta subunit Qn6 m[IU]/mLHigh1-3 [facility] HospitalComment on above:Result Comment: 'F NON < 1 - 3' ' 0.2 - 1 WEEK = 5 TO 50' ' 1 - 2 WEEKS = 50 - 500' ' 2 - 3 WEEKS = 100 - 5000' ' 3 - 4 WEEKS = 500 - 74394' ' 4 - 5 WEEKS = 1000 - 67315' ' 5 - 6 WEEKS = 53147 - 339421' ' 6 - 8 WEEKS = 19685 - 847787' ' 8 - 12 WEEKS = 79109 - 461418'Performed By: #### [id number] #### [facility] [address] [place], [place] [address]([place])D3 [facility] 448293-vxrxulewrsaznq D3 [Mass/Vol] 27.8 ng/mLLow31.0-80.0Wvumedicine Harrison Community HospitalComment on above:Order Comment: Specimen Type: BLOOD SPECIMENOrdering Facility: [facility] Address:[address] [place], [place] [address]Lwclqf Comment: Classification of 25 [place] Vitamin D status: Deficiency/Insufficiency: < or = 30 ng/ml. Sufficiency/Optimal Levels: 31-80 ng/mL Toxicity: > 100 ng/mL. Test performed by chemiluminescent immunoassay.Performed By: #### 1989-3 ####[facility] LABCLIA [id number] [facility]ENTERK [id number] W Auto Differential panel (Bld)on 12-38-4185Cbiojdlaz (Bld) [#/Vol]0.03 10*3/uLNormal<0.11CTrumbull Regional Medical Center on above:Order Comment: Specimen Type: BLOOD SPECIMENOrdering Facility: [facility] Address:[address] [place], [place] [address]Performed By: #### 08564-2 ####[facility] LABCLIA [id number] [place], [place] [address]Ikflwqcjy/100 WBC (Bld)0.4 % NormalLima City Hospital on above:Order Comment: Specimen Type: BLOOD SPECIMENOrdering Facility: [facility] Address:[address] [place], [place] [address]Performed By: #### 94753-1 ####[facility] LABCLIA [id number] [place] [address] Differential cell count method Nom (Bld)AutoNormalCUC Medical Center Comment on above:Order Comment: Specimen Type: BLOOD SPECIMENOrdering Facility: [facility] Address:[address] [place] [address] Performed By: #### 70738-3 ####[facility] LABIA [id number] [place], [place] [address]Ggqhuoufntt (Bld) [#/Vol]0.08 10*3/uLNormal<0.46[facility] on above:Order Comment: Specimen Type: BLOOD SPECIMENOrdering Facility: [facility] Address:[address] [place], [place] [address]Performed By: #### 31834-0 ####[facility] LABCLIA [id number] [place], [place] [address]Edjqtcprbhy/100 WBC (Bld)0.9 %NormalLima City Hospital on above:Order Comment: Specimen Type: BLOOD SPECIMENOrdering Facility: [facility] Address:[address] [place], [place] [address]Performed By: #### 13774-3 ####[facility] LABIA [id number] [place], [place] [address]Cezfrvfjtpg distribution width (RBC) [Ratio]13.8 %Fxvxwj67.5-15.0[facility] on above: Order Comment: Specimen Type: BLOOD SPECIMENOrdering Facility: [facility] Address:[address] [place], [place] [address]Performed By: #### 37701- 8 ####[facility] LABIA [id number] [place], [place] [address]Yuejwykwqh (Bld) [Volume fraction]34.0 %Low36.0-46.0 [facility] on above:Order Comment: Specimen Type: BLOOD SPECIMENOrdering Facility: [facility] Address:[address] [place], [place] [address]Performed By: #### 03700-6 ####[facility] LABIA [id number] [place], [place] [address]Svadboiqva (Bld) [Mass/Vol]11.5 g/iUSgstzd60.5-15.5CTrumbull Regional Medical Center on above: Order Comment: Specimen Type: BLOOD SPECIMENOrdering Facility: [facility] Address:[address] [place], [place] [address]Performed By: #### 20936- 8 ####[facility] LABIA [id number] [place], [place] [address]Shhodymj granulocytes (Bld) [#/Vol]0.03 10*3/uLNormal <0.10[facility] on above:Order Comment: Specimen Type: BLOOD SPECIMENOrdering Facility: [facility] Address:[address] [place], [place] [address]Performed By: #### 09050-1 ####[facility] LABCLIA [id number] [place], [place] [address]Ihhjddip granulocytes/100 WBC (Bld)0.4 %NormalLima City Hospital on above: Order Comment: Specimen Type: BLOOD SPECIMENOrdering Facility: [facility] Address:[address] [place], [place] [address]Performed By: #### 57983- 8 ####[facility] LABCLIA [id number] [place], [place] [address]Puckbpmdhll (Bld) [#/Vol]2.86 10*3/uLNormal1.00-4.00 [facility] on above:Order Comment: Specimen Type: BLOOD SPECIMENOrdering Facility: [facility] Address:[address] [place], [place] [address]Performed By: #### 46825-9 ####[facility] LABCLIA [id number] [place], [place] [address]Kvxoiallvrs/100 WBC (Bld)33.4 %NormalLima City Hospital on above:Order Comment: Specimen Type: BLOOD SPECIMENOrdering Facility: [facility] Address:[address] [place], [place] [address]Performed By: #### 26263-6 ####[facility] LABCLIA [id number] [place], [place] [address]GFS (RBC) [Entitic mass]30.8 huEfinbn86.0-34.0[facility] on above:Order Comment: Specimen Type: BLOOD SPECIMENOrdering Facility: [facility] Address:[address] [place], [place] [address]Performed By: #### 94583-3 ####[facility] LABCLIA [id number] [place], [place] [address]UOZZ (RBC) [Mass/Vol]33.8 g/vGXboztz75.5-36.0[facility] on above: Order Comment: Specimen Type: BLOOD SPECIMENOrdering Facility: [facility] Address:[address] [place], [place] [address]Performed By: #### 83137- 8 ####[facility] LABCLIA [id number] [place], [place] [address]UXR (RBC) [Entitic vol]91.2 gVEvymoc90.0-100.0[facility] on above:Order Comment: Specimen Type: BLOOD SPECIMENOrdering Facility: [facility] Address:[address] [place], [place] [address]Performed By: #### 67426-2 ####[facility] LABIA [id number] [place], [place] [address]Lceiqqknp (Bld) [#/Vol]0.66 10*3/uLNormal<0.87[facility] on above:Order Comment: Specimen Type: BLOOD SPECIMENOrdering Facility: [facility] Address:[address] [place], [place] [address]Performed By: #### 44455- 8 ####[facility] LABIA [id number] [place], [place] [address]Jjxvouevn/100 WBC (Bld)7.7 %NormalLima City Hospital on above:Order Comment: Specimen Type: BLOOD SPECIMENOrdering Facility: [facility] Address:[address] [place], [place] [address]Performed By: #### 41851-3 ####[facility] LABIA [id number] [place], [place] [address]Egqatocqqrd (Bld) [#/Vol]4.90 10*3/uLNormal1.45-7.50[facility] on above:Order Comment: Specimen Type: BLOOD SPECIMENOrdering Facility: [facility] Address:[address] [place], [place] [address]Performed By: #### 28607-0 ####[facility] LABCLIA [id number] [place], [place] [address]Lapvxxdrkkz/100 WBC (Bld)57.2 %NormalLima City Hospital on above:Order Comment: Specimen Type: BLOOD SPECIMENOrdering Facility: [facility] Address:[address] [place], [place] [address]Performed By: #### 69583-2 ####[facility] LABCLIA [id number] [place], [place] [address]Rgcgjnpqo RBC (Bld) [#/Vol] 10*3/uLNormal<0.01[facility] on above:Order Comment: Specimen Type: BLOOD SPECIMENOrdering Facility: [facility] Address:[address] [place], [place] [address]Performed By: #### 96635-2 ####[facility] LABCLIA [id number] [place], [place] [address]Lwnenplou RBC/100 WBC (Bld) [Ratio]0.0 /100 WBCNormal [facility] on above:Order Comment: Specimen Type: BLOOD SPECIMENOrdering Facility: [facility] Address:[address] [place], [place] [address]Performed By: #### 40570-7 ####[facility] LABCLIA [id number] [place], [place] [address]Rbdfnlkv mean volume (Bld) [Entitic vol]9.6 fLNormal9.0-12.7CTrumbull Regional Medical Center on above:Order Comment: Specimen Type: BLOOD SPECIMENOrdering Facility: [facility] Address:[address] [place] [address] Performed By: #### 38107-2 ####[facility] LABCLIA [id number] [place], [place] [address]Osvqtbwut (Bld) [#/Vol]345 10*3/aDQltuxt583-156XbitqeeulLima City Hospital on above:Order Comment: Specimen Type: BLOOD SPECIMENOrdering Facility: [facility] Address:[address] [place], [place] [address]Performed By: #### 19533-8 ####[facility] LABIA [id number] [place], [place] [address]PXO (Bld) [#/Vol]3.73 10*6/uLLow3.90-5.20[facility] on above:Order Comment: Specimen Type: BLOOD SPECIMENOrdering Facility: [facility] Address:[address] [place], [place] [address]Performed By: #### 42068-5 ####[facility] LABIA [id number] [place], [place] [address]CLB (Bld) [#/Vol]8.56 10*3/uL Normal3.70-11.00[facility] on above:Order Comment: Specimen Type: BLOOD SPECIMENOrdering Facility: [facility] Address:[address] [place], [place] [address]Performed By: #### 14722-6 ####[facility] LABIA [id number] [place], [place] [address]KPHSJJsr 29-44-5326EKPIIFHjbyc (SP) Office (HEMASA) SANNA RENDON ([id number]) 1985 F Date Time Provider Department 05/28/24 1:00 PM ABHYANKAR, KRISTOFER HEMASA During your visit today, we recorded the following information about you: Temperature Pulse Respiration Blood pressure 97.6 degrees 72/minute 16/minute 123/83 Weight Height 98.5 kg 1.677 m Kristofer Calix MD 05/29/2024 9:13 AM Signed NAME: Sanna Rendon CLINIC NO.: [id number] DATE OF SERVICE: May 28, 2024 (Levon) [...] later in 2018. These were found in [place], [place]. I don't have access to these [...] a target-like rash shortly before presenting to [facility] in 2016 with headaches and was [...] soon. When she had a stroke in [place], she had symptoms up to a month [...] having trouble losing weight. (more content not included)...NormalWvumedicine Harrison Community HospitalCNPNon 05-28-2024 CNPNTelephone (NCCAP) SANNA RENDON ([id number]) 1985 F Date Time Provider Department 05/28/24 [...] Encounter Status:Closed by TAYLOR ESCUDERO on 05/28/24NormalClevelFormerly [facility], 1928[facility]1983Comprehensive metabolic 2000 panelon 06-87-5883Kolnzil [Mass/Vol]4.4 g/dLNormal3.9-4.9ClevelFormerly [facility], 1928–1983Comment on above:Order Comment: Specimen Type: BLOOD SPECIMENOrdering Facility: [facility] Address:[address] [place] [address] [place] [id number] By: #### 96504-5 ####[facility] LABCLIA [id number] [place] [address]XSA [Catalytic activity/Vol]59 U/TSjiggi02-640LxlvmuglrLima City Hospital on above:Order Comment: Specimen Type: BLOOD SPECIMENOrdering Facility: [facility] Address:[address] [place], [place] [address]Performed By: #### 85259-3 ####[facility] LABCLIA [id number] [place], [place] [address]MMT [Catalytic activity/Vol]12 U/LNormal7-38[facility] on above:Order Comment: Specimen Type: BLOOD SPECIMENOrdering Facility: [facility] Address:[address] [place], [place] [address]Performed By: #### 41982- 8 ####[facility] LABCLIA [id number] [address] [place] [place], [place] [address]Ebygm gap [Moles/Vol]10 mmol/LNormal8-15[facility] on above:Order Comment: Specimen Type: BLOOD SPECIMENOrdering Facility: [facility] Address:[address] [place], [place] [address]Performed By: #### 96139-9 ####[facility] LABCLIA [id number] [place], [place] [address]YCP [Catalytic activity/Vol]11 U/EZhe85-38InymmupfqLima City Hospital on above:Order Comment: Specimen Type: BLOOD SPECIMENOrdering Facility: [facility] Address:[address] [place], [place] [address]Performed By: #### 21189-9 ####[facility] LABCLIA [id number] [place] [address] Bilirubin [Mass/Vol]0.2 mg/dLNormal0.2-1.3CTrumbull Regional Medical Center on above:Order Comment: Specimen Type: BLOOD SPECIMENOrdering Facility: [facility] Address:[address] [place], [place] [address]Performed By: #### 36421-7 ####[facility] LABCLIA [id number] [place], [place] [address]Quyccol [Mass/Vol]9.7 mg/dLNormal8.5-10.2CTrumbull Regional Medical Center on above:Order Comment: Specimen Type: BLOOD SPECIMENOrdering Facility: [facility] Address:[address] [place], [place] [address]Performed By: #### 22791-2 ####[facility] LABCLIA [id number] [place], [place] [address]Vdyvlpib [Moles/Vol]99 mmol/RIkrmxn33-328TqlnpmasgLima City Hospital on above:Order Comment: Specimen Type: BLOOD SPECIMENOrdering Facility: [facility] Address:[address] [place], [place] [address]Performed By: #### 01392- 8 ####[facility] LABCLIA [id number] [place], [place] [address]IG3 [Moles/Vol]25 mmol/HYqjgxl92-80GewbmictiLima City Hospital on above:Order Comment: Specimen Type: BLOOD SPECIMENOrdering Facility: [facility] Address:[address] [place], [place] [address]Performed By: #### 91785-5 ####[facility] LABCLIA [id number] [place], [place] [address]Wbzluodqav [Mass/Vol]0.71 mg/dL Normal0.58-0.96[facility] on above:Order Comment: Specimen Type: BLOOD SPECIMENOrdering Facility: [facility] Address:[address] [place], [place] [address]Performed By: #### 29648-8 ####[facility] LABCLIA [id number] [place], [place] [address]Shtklnhehc and Glomerular filtration rate.predicted panel (S/P/Bld)112 mL/min/1.73m???Normal>=60[facility] on above:Order Comment: Specimen Type: BLOOD SPECIMENOrdering Facility: [facility] Address:[address] [place] [id number] Comment: Estimated Glomerular Filtration Rate (eGFR) is [...] not accurately reflect actual GFR.Performed By: #### 93702-1 ####[facility] LABCLIA [id number] [place], [place] [address]Xkletow [Mass/Vol]79 mg/eOCnyvfz76-76WoaaquckfLima City Hospital on above:Order Comment: Specimen Type: BLOOD SPECIMENOrdering Facility: [facility] Address:[address] [place] [address]Ajxvrl Comment: The [place] Diabetes Association (ADA) provides [...] 2016, [place] Diabetes Association. Diabetes Care. 2016.39(Suppl 1).Performed By: #### 94408-2 ####[facility] LABCLIA [id number] [place], [place] [address]Itnscskfs [Moles/Vol]4.0 mmol/LNormal3.7-5.1CTrumbull Regional Medical Center on above:Order Comment: Specimen Type: BLOOD SPECIMENOrdering Facility: [facility] Address:[address] [place], [place] [address]Performed By: #### 68740-7 ####[facility] LABCLIA [id number] [place], [place] [address]Wkxzwxa [Mass/Vol]7.1 g/dLNormal6.3-8.0[facility] on above:Order Comment: Specimen Type: BLOOD SPECIMENOrdering Facility: [facility] Address:[address] [place], [place] [address]Performed By: #### 83550- 8 ####[facility] LABCLIA [id number] [place], [place] [address]Ifpodj [Moles/Vol]134 mmol/HRvy195-480GdkqqwkkuLima City Hospital on above:Order Comment: Specimen Type: BLOOD SPECIMENOrdering Facility: [facility] Address:[address] [place], [place] [address]Performed By: #### 15152-9 ####[facility] LABCLIA [id number] [place], [place] [address]Mimb nitrogen [Mass/Vol]8 mg/dL Normal7-21[facility] on above:Order Comment: Specimen Type: BLOOD SPECIMENOrdering Facility: [facility] Address:[address] [place], [place] [address]Performed By: #### 21119-9 ####[facility] LABCLIA [id number] [place] [address] Ferritin SerPl-mCncon 53-52-7327Pmmmaecd [Mass/Vol]73.8 ng/lIHwkkky19.7-205.1 [facility] on above:Order Comment: Specimen Type: BLOOD SPECIMENOrdering Facility: [facility] Address:[address] [place], [place] [address]Performed By: #### 16173-7, 2276-4, 3016-3 ####[facility] LABCLIA [id number] [place] [address] [place] OF AMERICAFolate SerPl-mCncon 28-54-4523Nlkcic [Mass/Vol] ng/mLNormal>4.7CTrumbull Regional Medical Center on above:Order Comment: Specimen Type: BLOOD SPECIMENOrdering Facility: [facility] Address:[address] [place], [place] [address]Result Comment: A result of > 20 ng/mL is not necessarily indicative of a pathologic or treatable condition: it reflects a limitation of the test methodology. Assay reference range: 4.8 to 24.2 ng/mL. Suitable for detection of folate deficiency. Reference: Folate III (Folate III) [package insert V 1.0 Kosovan]. [facility], [place], [place]: February 2015.Performed By: #### 2132-9, 2284-8 ####[facility] LABCLIA [id number] [place] [address] [place] OF AMERICAIron and Iron binding capacity panelon 05-28-2024 Iron [Mass/Vol]68 ug/pIXckodt10-764VpyqtrkrpLima City Hospital on above: Order Comment: Specimen Type: BLOOD SPECIMENOrdering Facility: [facility] Address:[address] [place], [place] [address]Performed By: #### 22601- 8, 2276-4, 3016-3 ####[facility] LABCLIA [id number] [place] [address] [place] OF AMERICAIron binding capacity [Mass/Vol]367 ug/aVQkvcne289-690KqvnsktbdLima City Hospital on above: Order Comment: Specimen Type: BLOOD SPECIMENOrdering Facility: [facility] Address:[address] [place], [place] [address]Performed By: #### 97483- 8, 6-4, 3016-3 ####[facility] LABCLIA [id number] [place] [address] [place] OF AMERICAIron/TIBC [Molar ratio]18.5 %Rthdkw39.0-57.0[facility] on above:Order Comment: Specimen Type: BLOOD SPECIMENOrdering Facility: [facility] Address:[address] [place], [place] [address]Performed By: #### 83926- 8, 6-4, 3016-3 ####[facility] LABCLIA [id number] [place] [address] [place] DOCTORS HOSPITALTS SerPl-aCncon 86-70-8164PZC Qn2.940 m[IU]/LNormal0.270-4.200[facility] on above:Order Comment: Specimen Type: BLOOD SPECIMENOrdering Facility: [facility] Address:[address] [place], [place] [address]Result Comment: If the patient is , TSH [...] the . Thyroid, 2017:27:3:315-389. Performed By: #### 22548-2, 4, 3015-3 ####[facility] LABCLIA [id number] [place] [id number] [place] OF DOCTORS HOSPITALVit B12 SerPl-mCncon 05-84-0227Cghcyxhja (Vitamin B12) [Mass/Vol]487 pg/hSUqpofe539-4081YrifgoxctTrumbull Regional Medical Center on above:Order Comment: Specimen Type: BLOOD SPECIMENOrdering Facility: [facility] Address:[address] [place], [place] [address]Performed By: #### 2132-9, 2284-8 ####[facility] LABCLIA [id number] [facility] [id number] [place] [address] [place] DOCTORS HOSPITALBhCG Quanton 46-71-6107PTN.beta subunit Qn101 m[IU]/mLHigh1-3Fisher Thomas B. Finan CenterComment on above:Result Comment: 'F NON < 1 - 3' ' 0.2 - 1 WEEK = 5 TO 50' ' 1 - 2 WEEKS = 50 - 500' ' 2 - 3 WEEKS = 100 - 5000' ' 3 - 4 WEEKS = 500 - 62877' ' 4 - 5 WEEKS = 1000 - 68269' ' 5 - 6 WEEKS = 31740 - 887902' ' 6 - 8 WEEKS = 38723 - 883908' ' 8 - 12 WEEKS = 64279 - 488942'Performed By: #### [id number] #### [facility] [address] [place], [place] [address]PAJRRS V LEIDEN MUTATIONon 85-24-6223CYR FACTOR V LEIDEN MUTATIONComment.[facility] HealthcareComment on above:Result: c.1601G>A (p.Gsz608Hyj) - Not Detected This result is not associated with an increased risk for venous thromboembolism. See Additional Clinical Information and Comments. Additional Clinical Information: Venous thromboembolism is a multifactorial disease influenced by genetic, environmental, and circumstantial risk factors. The c.1601G>A (p. Wbu130Npb) variant in the F5 gene, commonly referred [...] c.*97G>A variant and Factor V Leiden (PMID: 04788087). Additional risk factors include but are not [...] health care providers to discuss results at [phone] (3455). Test Details: Variant Analyzed: c.1601G>A (p. Coe172Sra), referred to as Factor V Leiden Methods/Limitations: [...] developed and its performance characteristics determined by [employer]. It has not been cleared or approved by the Food and Drug Administration. References: Jomar Tian, Loren BLANDON, Thiago R, Solo WW, Jose JH; ACMG Professional Practice and Guidelines Committee. Addendum: [place] [employer] consensus statement on factor V Leiden mutation testing. Nisha Med. 2020Jul 02. doi: 10.1038/e68363-659-01293-y. PMID: 48527431. Naina POWERS. Factor V Leiden Thrombophilia. 1998September 10 (Updated 2017May 03). In: Emeterio MP, Radha HH, Clayton RA, et al., editors. Cassie(R) (Internet). [place] ([place]): [facility], [place]; 5534-1432. Available from: https://www.ncbi.nlm.nih.gov/books/TZI2365/ Hudson Tian, Loren BLANDON, Trent X, Margarito B, Jo-Ann EB, Lena P, Rhiannon CS; ACMG Laboratory Laboratory Operations Coordinator Committee. Venous thromboembolism laboratory testing (factor V Leiden and factor II c.*97G>A), 2018 update: a technical standard of the [place] [employer] and Genomics (ACMG). Nisha Med. 2018 Mar;20(12):0570-3465. doi: 10.1038/b41407-615-7751-x. Epub 2017Feb 01. PMID: 53295574. [facility] REVIEWED BYComment.NOMS HealthcareComment on above:Technical Component performed at [facility] Professional Component performed by: Iggli Kindred Hospital South PhiladelphiaFotolia Rosa Isela Lee, Ph.D., [facility] Director, Molecular Genetics [address] [facility] Performed at: - [facility] [address] [facility], [place], [place] [address] Stereoptic Projection Topographer: Kolton Storm [facility], Phone: [phone] [facility] ED 03-77-4776YQVXKpezhoqvc (HEMASA) SANNA RENDON ([id number]) 1985 F Date Time Provider Department 05/14/24 [...] for deficiency. 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 investigator or PCP request any additional testing, we [...] Date Reviewed: 04/28/2024 Reviewed by: Katherine Negrete APRN.BRIDGE SAW OPERATOR - Fully Assessed Reason for Visit: [...] Status:Closed by RACHAEL JOHNSON on 05/14/24[facility] MISCELLANEOUS TESTon 90-59-1153GLGQOCHLSMVVE TESTCOMMENT.NOMS HealthcareComment on above:Test Ordered: [id number] , ID Ab Cytomegalovirus (CMV) Ab, IgG [...] - 1.1 Positive >1.1 Performed at: [address] [id number] Stereoptic Projection Topographer: Dusty Miles PhD, Phone: [phone] Performed at: [address] [id number] Stereoptic Projection Topographer: China Ching MD, Phone: [phone] , Infectious Disease Antibody Profile CLINISYNCNOMS HealthcareNo Panel Informationon 65-11-3815WRZUGYYXZEEFJ HealthcarePROTEIN C-FUNCTIONALon 70-70-5647NPOUHUV C-IQTNTXSBUG189 %73 - 180 % NOMS HealthcareComment on above:Performed at: [address] [id number] Stereoptic Projection Topographer: China Ching MD, Phone: [phone] PROTEIN S-ANTIGENon 99-85-5309NIDEXLE S, TYEX203 %61 - 136 %[facility] PROTEIN S, TOTAL96 %60 - 150 %NOMS HealthcareComment on above:This test was developed and its performance characteristics determined by [facility]. It has not been cleared or approved by the Food and Drug Administration. [facility] ANTITHROMBIN ACTIVITYon 36-38-2497Oldilqjgaunwnk and review of laboratory resultsAbnormalKindred Hospital ANTITHROMBIN NENYBCDC175 %Jvyvzdwx04 - 135 % NOMS HealthcareComment on above:An elevated antithrombin activity is of no known clinical significance. Direct Xa inhibitor anticoagulants such as rivaroxaban, apixaban and edoxaban will lead to spuriously elevated antithrombin activity levels possibly masking a deficiency. Performed at: [address] [id number] Stereoptic Projection Topographer: China Ching MD, Phone: [phone] ALL IMMUNOGLOBULIN Koffi 79-50-4694JSD IMMUNOGLOBULIN G, QN913 mg/dL586 - 1602 mg/dLNONC HealthcareComment on above:Performed at: [address] [id number] Stereoptic Projection Topographer: Dusty Miles PhD, Phone: [phone] ALL IMMUNOGLOBULIN Mon 72-31-2848EVS IMMUNOGLOBULIN M, Q177 mg/dL26 - 217 mg/dL NOM HealthcareComment on above:Performed at: [address] [id number] Stereoptic Projection Topographer: Dusty Miles PhD, Phone: [phone] [facility] HOMOCYSTEINEon 58-63-8163EWNHKIPR(E)INE5.8 umol/L0.0 - 14.5 umol/LNOMS HealthcareNo Panel Informationon 48-54-8579TOZQGONZBMOLB HealthcareALL CBC WITH AUTO DIFFon 26-41-4599WQCGQMKNC ABSOLUTE OYGH2HRQZ HealthcareBasophils/100 WBC (Bld)0.2 %0.2 - 2.0 %NOMS HealthcareEosinophils/100 WBC (Bld)0.7 %Low0.9 - 7.0 % NOMS HealthcareErythrocyte distribution width (RBC) [Ratio]13 %11.0 - 15.0 %NOMS HealthcareHematocrit (Bld) [Volume fraction]35.6 %Low36.0 - 48.0 %[facility] Health CareHemoglobin (Bld) [Mass/Vol]12.3 g/dL12.0 - 16.0 g/dLSSM Health Care IMMATURE GRANULOCYTES ABS AUTO0.04HighNOReynolds County General Memorial HospitalImmature granulocytes/100 WBC (Bld)0.4 %0.0 - 0.5 %[facility] Health CareInterpretation and review of laboratory resultsAbnormalNONC HealthcareLYMPHOCYTES ABSOLUTE AUTO2.5NOMS [facility] Lymphocytes/100 WBC (Bld)26.1 %20.5 - 60.0 %[facility] HospitalH (RBC) [Entitic mass]31 pg26.7 - 34.0 pgNOSaint Luke's HospitalHC (RBC) [Mass/Vol]34.6 g/dL29.9 - 35.2 g/dLSSM Health CareMCV (RBC) [Entitic vol]89.7 fL81.0 - 99.0 fLSSM Health Care MONOCYTES ABSOLUTE AUTO0.6NOMS HealthcareMonocytes/100 WBC (Bld)6 %1.7 - 12.0 % [facility] Health CareNEUTROPHILS ABSOLUTE AUTO6.3NOMS HealthcareNeutrophils/100 WBC (Bld)66.6 %43.0 - 75.0 %[facility] Health CarePlatelet mean volume (Bld) [Entitic vol] 9.9 fL9.5 - 13.5 fLNOMS [facility]ert HospitalTBH EO #0.1NOMS [facility] HospitalTB OVE280REOD [facility] HospitalTB RBC3.97LowNOMS [facility] HospitalTB WBC9.4NOMS [facility] HospitalCLINISYNCNSt. Luke's HospitalCC APTTon 21-20-3511iFLU Coag (Bld) [Time]28.5 [facility]'s HospitalLon 05-10-2024L Specimen: [id number] Received: 05/12/24-120 Status: BALDOMERO Andrade Num: [id number] Spec Type: Surgical Subm Dr: Wilton Herrmann Tissues: A Placenta - Other than 3rd Trimester (14 WK PLACENTA) Procedures: HE/3, Gross/Micro L4 Age/ Patient Sex Location Account Attending Physician Sanna Rendon 38/F LABE[facility] [id number] Wilton Herrmann SPEC NUM: [id number] RECD: 05/12/24-1209 STATUS: BALDOMERO ANDRADE NUM: [id number] AMARILYS: 05/10/24- SUBM DR: Wilton Herrmann ENTERED: 05/12/24-[address] [facility] [address]: Yao Pickett SPEC TYPE: Surgical DEPT: [facility] ENTERED BY: [id number] RECV BY: [id number] ORDERED: HE/3, Gross/Micro L4 ORDERED: HE/3, Gross/Micro [...] BS25-17 Received: 05/12/24 Status: BALDOMERO Andrade Num: [id number] Spec Type: Surgical Subm Dr: Wilton Herrmann Tissues: A Placenta - Other than 3rd Trimester (14 WK PLACENTA) Procedures: DEION/Ramone, Gross/Micro L4 Patient: [place],Katie [id number] (Continued) Specimen: [id number] Received: 05/12/24 (Continued) Gross Description (Continued) Signed (signature on file) Vivi Hill MD 05/13/24 1605 Specimen: [id number] Received: 05/12/24 Status: JUSTINEBrittany Andrade Num: [id number] Spec Type: Surgical Subm Dr: Wilton Herrmann Tissues: A Placenta - Other than 3rd Trimester (14 WK PLACENTA) Procedures: /3, Gross/Micro L4 Patient: Sanna Rendon [id number] (Continued) Specimen: [id number] Received: 05/12/24 (Continued) Gross [...] uniform. Cassettes: A1 Rolled membrane A2-A3 Manager [employer] sections of placenta (3, ss, BS25-17 A) JosselynG . CPT Codes 53116 Specimen: [id number] Received: 05/12/24 Status: BALDOMERO Andrade Num: [id number] Spec Type: Surgical Subm Dr: Wilton Herrmann Tissues: A Placenta - Other than 3rd Trimester (14 WK PLACENTA) Procedures: DEION/Ramone, Gross/Micro L4 Patient: LizandroSanna [id number] (Continued) Signed (signature on file) Vivi Hill MD 05/13/[address] [place] [address] Physician GroupMHPT FIBRINOGENon 05-10-2024 KYEULPGBLH799 mg/dL200 - 400 mg/dLNOReynolds County General Memorial HospitalNo Panel Informationon 97-44-3084HVJQZJHJBYQCZ HealthcareSRMCOH PROTHROMBIN TIME INR W/O COUMon 78-88-8287FH Coag (PPP) [Time]10.3 sNMissouri Baptist Hospital-Sullivan INR0.97[facility] Comment on above:DESIRED INR: 2.0-3.0 CONDITIONS NOT LISTED BELOW 2.5-3.5 FOR PROSTHETIC HEART VALVE REPLACEMENT 2.5-3.5 RECURRENT THROMBOSIS US PELVISon 74-36-2806SwkZ[place], [place] [address] Ultrasound Report Signed Patient: SANNA RENDON MR#: [id number] : 1985 Acct:[id number] Age/Sex: 38 / F ADM Date: Loc: [facility] 258-[address]: Wilton Herrmann D.O. Ordering Physician: Wilton Herrmann D.O. Date of Service: 05/10/24 Procedure(s): US pelvis Accession Number(s): [id number] cc: Wilton Herrmann D.O.; PENELOPE CASAS [place] [phone] Patient Name: SANNA RENDON MRN: [id number] date: 1985 Sex: F Assigned Patient Location: [facility] Current Patient Location: [facility] Accession/Order Number: [id number] Exam Date: 05/10/2024 14:36 Report Date: 05/10/2024 [...] M.D. Signed By: 05/10/241603 DD/ 01 TD/TT: Fuel Cell Systems Engineer:ELVERadiology, Radiologist, - 05/10/2024 [place] [address] Ultrasound Report Signed Patient: SANNA RENDON MR#: [id number] : 1985 Acct:[id number] Age/Sex: 38 / F ADM Date: Loc: [facility] 258-[address]: Wilton Herrmann D.O. Ordering Physician: Wilton Herrmann D.O. Date of Service: 05/10/24 Procedure(s): US pelvis Accession Number(s): [id number] cc: Wilton Herrmann D.O.; PENELOPE CASAS [place] [address] Patient Name: SANNA RENDON MRN: [id number] date: 1985 Sex: F Assigned Patient Location: [facility] Current Patient Location: [facility] Accession/Order Number: [id number] Exam Date: 05/10/2024 14:36 Report Date: 05/10/2024 [...] M.D. Signed By: 05/10/241603 DD/ 01 TD/TT: Fuel Cell Systems Engineer: SHILOH HealthcareRadiology Study observation (narrative)SHILOH HealthcareUS PELVIS Ordered By: Radiologist Radiology on 46-91-4515IWET Healthcare Work Phone: US for pregnancyon 81-63-1913OlbBrian [place] [phone] Ultrasound Report Signed Patient: SANNA RENDON MR#: [id number] : 1985 Acct:[id number] Age/Sex: 38 / F ADM Date: Loc: [facility] 258-[address]: Wilton Herrmann D.O. Ordering Physician: Wilton Herrmann D.O. Date of Service: 05/10/24 Procedure(s): US OB limited Accession Number(s): [id number] cc: Wilton Herrmann D.O.; PENELOPE CASAS [address] [address] Patient Name: SANNA RENDON MRN: [id number] date: 1985 Sex: F Assigned Patient Location: [facility] Current Patient Location: [place] Accession/Order Number: [id number] Exam Date: 05/10/2024 08:30 Report Date: 05/10/2024 [...] M.D. Signed By: 05/10/24928 DD/ 5 TD/TT: Fuel Cell Systems Engineer:ELVERadiologPacheco morales, - 05/10/2024 [place] [address] Ultrasound Report Signed Patient: SANNA RENDON MR#: [id number] : 1985 Acct:[id number] Age/Sex: 38 / F ADM Date: Loc: [facility] 258-[address]: Wilton Herrmann D.O. Ordering Physician: Wilton Herrmann D.O. Date of Service: 05/10/24 Procedure(s): US OB limited Accession Number(s): [id number] cc: Wilton Herrmann D.O.; PENELOPE CASAS [place] [address] Patient Name: SANNA RENDON MRN: [facility]:[id number] date: 1985 Sex: F Assigned Patient Location: [facility] Current Patient Location: [place] Accession/Order Number: [id number] Exam Date: 05/10/2024 08:30 Report Date: 05/10/2024 [...] M.D. Signed By: 05/10/24928 DD/ 5 TD/TT: Fuel Cell Systems Engineer: SHILOH HealthcareRadiology Study observation (narrative)NOMS HealthcareUS for pregnancyOrdered By: Radiologist Radiology on 77-84-7396YWPX Healthcare Work Phone: us OB TRANSVAGINALon 47-51-9931EJ OB TRANSVAGINALTITLE OF EXAM: OB Ultrasound: REASON [...] period was 01/29/2024.Urinalysis macro (dipstick) panel (U)on 58-82-0680Hsxkyftce, UANegativeNegative - 4(70) +++ mg/dLNONC Healthcare Blood, UANegativeNegative - 50 Max/mcLNONC HealthcareClarity, UAClearNONC HealthcareColor, UAYellowNONC HealthcareGlucose, UANegativeNegative - 2000(110) ++++ mg/dLNONC HealthcareInterpretation and review of laboratory resultsNormal NOMS HealthcareKetones, UANegativeNegative - 160(16) ++++ mg/dLNONC Healthcare Leukocytes, UANegativeNegative - 500+++ John/mcLNONC HealthcareNitrite, UA NegativeNegative - PositiveNOMS HealthcarepH, UA65 - 9NOMS HealthcareProtein, UA NegativeNegative - 2000(20) ++++ mg/dLNONC HealthcareSpec Grav, UA1.011 - 1.03 NOMS HealthcareUrobilinogen, UA0.20.2 - 12 mg/dLNOMS HealthcareNOMS Healthcare BOX TESTon 07-85-7117TPC TEST SENT OUTYNOMS AzsnlpgggvVKN3UFPTRZQOO Healthcare LGA03206/13/23NOMS HealthcareUNITY BOX CLINISYNCNONC HealthcareTBH DRUG SCREEN RAPID (URINE)on 69-92-6745YWELSPUAUWO SCREEN URINENegativeNEGATIVENOMS HealthcareBARBITURATES SCREEN URINENegative NEGATIVENOMS HealthcareBENZODIAZEPINES [...] TRICYCLIC ANTIDEPRESSANT URINENegativeNEGATIVENOMS HealthcareCLINISYNCNOMS HealthcareUS OB TRANSVAGINALon 30-46-3286WskZebul[place], [place] [address] Ultrasound Report Signed Patient: Sanna Rendon MR#: [id number] : 1985 Acct:[id number] Age/Sex: 38 / F ADM Date: 04/04/24 Loc: [facility] Attending Dr: Wilton Herrmann D.O. Ordering Physician: Wilton Herrmann D.O. Date of Service: 04/04/24 Procedure(s): US OB transvaginal Accession Number(s): [id number] cc: Wilton Herrmann D.O.; PENELOPE CASAS [place] [phone] Patient Name: SANNA RENDON MRN: TBH:[id number] date: 1985 Sex: F Assigned Patient Location: [facility] Current Patient Location: Accession/Order Number: [id number] Exam Date: 04/04/2024 09:43 Report Date: 04/05/2024 [...] Signed By: 04/05/24 0442 DD/ 0439 TD/TT: Fuel Cell Systems Engineer:TBHRadiology, Radiologist, MD - 04/05/2024 [place] [address] Ultrasound Report Signed Patient: Sanna Rendon MR#: [id number] : 1985 Acct:[id number] Age/Sex: 38 / F ADM Date: 04/04/24 Loc: [facility] Attending Dr: Wilton Herrmann D.O. Ordering Physician: Wilton Herrmann D.O. Date of Service: 04/04/24 Procedure(s): US OB transvaginal Accession Number(s): [id number] cc: Wilton Herrmann D.O.; PENELOPE CASAS [place] [phone] Patient Name: SANNA RENDON MRN: [id number]:[id number] date: 1985 Sex: F Assigned Patient Location: [facility] Current Patient Location: Accession/Order Number: [id number] Exam Date: 04/04/2024 09:43 Report Date: 04/05/2024 [...] M.D. Signed By: 04/05/242 DD/ 8 TD/TT: Fuel Cell Systems Engineer: SHILOH HealthcareRadiology Study observation (narrative)SSM Health CareUS OB TRANSVAGINALOrdered By: Radiologist Radiology on 94-02-0748EEIL CHOBOLABS Work Phone: HCG ( test) Ql (U)on 34-57-7370Zqnfxuxaeqfjqr and review of laboratory resultsAbnormalNOMS HealthcarePreg Test, UrPositive NegativeNOReynolds County General Memorial HospitalNONC HealthcareUrinalysis macro (dipstick) panel (U)on 50-41-1316Ezudzpxen, UANegativeNegative - 4(70) +++ mg/dLNOMS HealthcareBlood, UANegativeNegative - 50 Max/mcLNOMS HealthcareClarity, UAClearNOMS Healthcare Color, UAYellowNOMS HealthcareGlucose, UANegativeNegative - 2000(110) ++++ mg/dL NOMS HealthcareInterpretation and review of laboratory resultsNormalNONC HealthcareKetones, UANegativeNegative - 160(16) ++++ mg/dLNOMS Healthcare Leukocytes, UANegativeNegative - 500+++ John/mcLNOMS HealthcareNitrite, UA NegativeNegative - PositiveNOMS HealthcarepH, UA5.55 - 9NOMS HealthcareProtein, UANegativeNegative - 2000(20) ++++ mg/dLNOMS HealthcareSpec Grav, UA1.021 - 1.03 NOMS HealthcareUrobilinogen, UA1.00.2 - 12 mg/dLNOMS HealthcareNOMS HealthcareC Urineon 59-46-7247Jqewkowg identified Cx Nom (U)Microbiology PROCEDURE: Urine Culture [R1] SOURCE: U CleanCatch BODY SITE: COLLECTED DATE/TIME: 03/01/2024 10:30 EDT RECEIVED DATE/TIME: 03/01/2024 13:48 EDT START DATE/TIME: 03/01/2024 13:48 EDT FREE TEXT SOURCE: Wilton HERRMANN DO, DO, Corey R FINAL REPORTS Final Report [] Verified Date/Time: 03/03/2024 08:52 EST 2,000 cfu/ml Mixed skin contaminants Performing Locations R1: This test was performed at: [facility], [address] [place] [address], [facility] , , LootzeSmkohfMorrow County HospitalComment on above:Performed By: #### [id number] #### [facility] [address] [place] [address]LcBP Quanton 80-84-5323UIK.beta subunit Qn747 m[IU]/mLHigh1-3 [facility] HospitalComment on above:Result Comment: 'F NON < 1 - 3' ' 0.2 - 1 WEEK = 5 TO 50' ' 1 - 2 WEEKS = 50 - 500' ' 2 - 3 WEEKS = 100 - 5000' ' 3 - 4 WEEKS = 500 - 48702' ' 4 - 5 WEEKS = 1000 - 54108' ' 5 - 6 WEEKS = 87510 - 161251' ' 6 - 8 WEEKS = 20481 - 883868' ' 8 - 12 WEEKS = 76948 - 716692'Performed By: #### [id number] #### [facility] [address], [place] [address]QMYNFILANCnhkowf By: SYSTEM SYSTEM on 99-55-6307EME.beta subunit Qn747 m[IU]/mLHigh1 - 3 mIU/mLRemisol ChemComment on above:Result Comment: 'F NON < 1 - 3' ' 0.2 - 1 WEEK = 5 TO 50' ' 1 - 2 WEEKS = 50 - 500' ' 2 - 3 WEEKS = 100 - 5000' ' 3 - 4 WEEKS = 500 - 38763' ' 4 - 5 WEEKS = 1000 - 40846' ' 5 - 6 WEEKS = 79080 - 101409' ' 6 - 8 WEEKS = 73808 - 631465' ' 8 - 12 WEEKS = 47785 - 686459'BhCG Quanton 63-83-3827YYW.beta subunit Qn268 m[IU]/mLHigh1-3FSelect Medical Cleveland Clinic Rehabilitation Hospital, AvonComment on above:Result Comment: 'F NON < 1 - 3' ' 0.2 - 1 WEEK = 5 TO 50' ' 1 - 2 WEEKS = 50 - 500' ' 2 - 3 WEEKS = 100 - 5000' ' 3 - 4 WEEKS = 500 - 91320' ' 4 - 5 WEEKS = 1000 - 23423' ' 5 - 6 WEEKS = 78769 - 665695' ' 6 - 8 WEEKS = 47080 - 947911' ' 8 - 12 WEEKS = 41451 - 834761'Performed By: #### [id number] #### [facility] [address], [place] [address]ZgRD Quanton [id number] subunit Qn123 m[IU]/mLHigh1-3 [facility] HospitalComment on above:Result Comment: 'F NON < 1 - 3' ' 0.2 - 1 WEEK = 5 TO 50' ' 1 - 2 WEEKS = 50 - 500' ' 2 - 3 WEEKS = 100 - 5000' ' 3 - 4 WEEKS = 500 - 45840' ' 4 - 5 WEEKS = 1000 - 13030' ' 5 - 6 WEEKS = 05501 - 294844' ' 6 - 8 WEEKS = 54893 - 652705' ' 8 - 12 WEEKS = 55035 - 156268'Performed By: #### [id number] #### [facility] [address], [place] [id number] By: SYSTEM SYSTEM on 60-92-1150EYM.beta subunit Qn123 m[IU]/mLHigh1 - 3 mIU/mLRemisol ChemComment on above:Result Comment: 'F NON < 1 - 3' ' 0.2 - 1 WEEK = 5 TO 50' ' 1 - 2 WEEKS = 50 - 500' ' 2 - 3 WEEKS = 100 - 5000' ' 3 - 4 WEEKS = 500 - 77616' ' 4 - 5 WEEKS = 1000 - 40889' ' 5 - 6 WEEKS = 21174 - 595988' ' 6 - 8 WEEKS = 25674 - 555867' ' 8 - 12 WEEKS = 79784 - 428182'PfoZ6bpr 17-53-6146XtY3t (Bld) [Mass fraction]6.0 %High<=5.9Bellevue HospitalComment on above:Performed By: #### [id number] #### [facility] [address], [place] [address]PCP Screen 4th Generation wRfxon 63-66-7878TNI 1+2 Ab+HIV1 p24 Ag IA QlNon-ReactiveInvalid Interpretation CodeNon ReactiveBellevue HospitalComment on above:Result Comment: HIV-1/HIV-2 antibodies and HIV-1 p24 antigen were NOT detected. There is no laboratory evidence of HIV infection. HIV Negative Performed at: [facility] [address], [place] [id number] PhD Jd MontanoPerformed By: #### [id number] #### [facility] [address], [place] [address]XtYF Quanton 25-59-6390VFH.beta subunit Qn52 m[IU]/mLHigh1-3 [facility] HospitalComment on above:Result Comment: 'F NON < 1 - 3' ' 0.2 - 1 WEEK = 5 TO 50' ' 1 - 2 WEEKS = 50 - 500' ' 2 - 3 WEEKS = 100 - 5000' ' 3 - 4 WEEKS = 500 - 84855' ' 4 - 5 WEEKS = 1000 - 18666' ' 5 - 6 WEEKS = 53272 - 158552' ' 6 - 8 WEEKS = 45998 - 903514' ' 8 - 12 WEEKS = 58676 - 662741'Performed By: #### [id number] #### [facility] [address] [place], [place] [address]ZKVGICFLCVvgnwih By: SYSTEM SYSTEM on 91-54-2928Ggbyhozblrb [Mass/Vol]225 mg/fGTwpv043 - 200 mg/dLRemisol ChemCholesterol in HDL [Mass/Vol] [...] 3 - 4 WEEKS = 500 - 10703' ' 4 - 5 WEEKS = 1000 - 56330' ' 5 - 6 WEEKS = 95711 - 957740' ' 6 - 8 WEEKS = 86747 - 382551' ' 8 - 12 WEEKS = 88643 - 362832'Triglyceride [Mass/Vol]212 mg/dLHigh <=149mg/dLRemisol ChemTSH Qn5.68 m[IU]/LHigh0.34 - 5.60 mcIU/mLRemisol Chem CHEMISTRYOrdered By: Chelsey Price on 09-06-4197UtB6w (Bld) [Mass fraction]5.9 %Normal<=5.9%[facility] CxwlAxmwVMMftH8yah 80-50-2708RlX3s (Bld) [Mass fraction]5.9 % Normal<=5.9B[facility]vue HospitalComment on above:Performed By: #### [id number] #### [facility] [address], [place] [address]Gijsx Panelon 50-70-7423Pgxnnhhlmgk [Mass/Vol]225 mg/dLHigh 120-200B[facility]vue HospitalComment on above:Performed By: #### [id number] #### [facility] [address], [place] [address]Tfwwvsfvqye in HDL [Mass/Vol]40 mg/dLInvalid Interpretation CodeBellevue HospitalComment on above:Result Comment: '>= 60 LOW RISK' '<= 40 HIGH RISK'Performed By: #### [id number] #### [facility] [address], [place] [address]Xzccparrsuo in LDL [Mass/Vol]171 mg/dLHigh<=129B[facility]vue HospitalComment on above:Performed By: #### [id number] #### [facility] [address], [place] [address]Kmnapzrgnsf in VLDL [Mass/Vol]42 mg/dLHigh7-40B[facility] HospitalComment on above:Performed By: #### [id number] #### [facility] [address], [place] [address]Eogspixcpzmx [Mass/Vol]212 mg/dLHigh<=149B[facility]vue HospitalComment on above:Performed By: #### [id number] #### [facility] [address], [place] [address]QQTbu 11-07-7103UOZ Qn5.68 m[IU]/LHigh0.34-5.60B[facility]vue HospitalComment on above:Performed By: #### [id number] #### [facility] [address] [place], [place] [address]Ikisqlnytv Visit Summaryon 93-04-0552Azarweikml Visit Summary Ambulatory Visit Summary SANNA RENDON [...] EST With: Penelope CASAS DO, FAAFP Where: [facility] [address], [facility] [place] [address]- You Need to Schedule the Following Appointments Follow Up with Penelope CASAS DO, FAAFP, FAM, PED When: In 3 months Where: [address], [facility] [place] [address]- You Need to Complete the Following HgbA1c, [...] virus infection Vaginal marlee (more content not included)...[facility] Family Medicine Office/Clinic Noteon 29-90-4082Jmiird Medicine Office/Clinic NoteFanorfolk state hospital Medicine Office/Clinic Note Chief Complaint Patient [...] 40 mg subcu, continue to follow-up with basin operator 5. Gestational diabetes (O24.419: Gestational diabetes mellitus in , unspecified control) Metformin 500 mg daily XR tabs 2/day per NYLON OPERATOR Ordered: HgbA1c HgbA1c HgbA1c HgbA1c 6. Well [...] FAAFP, CHRIS, PED In 3 months [address] [facility], [facility] [place] [address]- Additional Instructions: Patient Education Acute Bronchitis, Adult Problem List/Past Medical History Ongoing Acute (more content not included)...[facility] HospitalComment on above:Result Comment: Electronically Signed [...] Community acquired pneumonia Refills: 5 Pickup at [facility] 1985 New azithromycin (azithromycin 250 mg Tab 5-day Dose Pack (Z-Jonny)) 1 Packets By Mouth As Directed Community acquired pneumonia Duration: 5 Days as directed on package labeling Pickup at [facility] 1985 Unchanged enoxaparin (Lovenox 40 mg/ [...] concerns Pharmacy Information [facility] 1986: [address] [facility] [place] [phone] Allergies Milk Products (Illness) ciprofloxacin (Numbness and [...] you for choosing us for your care. [facility] Medicine Office/Clinic Noteon 15-00-7097Jkiaen Medicine Office/Clinic NoteFanorfolk state hospital Medicine Office/Clinic Note Chief Complaint SOB [...] Years White Female presenting to [facility] with body aches and [...] puff(s), Inhalation, q6hr, 1 EA, Refill(s) 5, [facility] 1985, 168, cm, 02/01/2414:43:00 EDT, Height/Length Dosing, 101.1, kg, 02/02/24 14:43:00 EDT, Weight Dosing azithromycin, = 1 packet(s), Oral, As Directed, as directed on package labeling, X 5 day(s), # 6 tab(s), Refills(s) 0, Pharmacy: [facility] 1985, 168, cm, 02/02/24 14:43:00 EDT, [...] Bernstein MD, FAM, MED Only if needed [address] [place] [phone] Additional Instructions: Problem List/Past Medical History Ongoing [...] Vitamin D, 2000 International_Unit (more content not included)...[facility] HospitalComment on above:Result Comment: Electronically Signed By: Anni Bernstein MD\.br\Date and Time Signed: 02/01/2415:03 EDTMRI Brain w/o Contraston 75-42-6434GCL Brain w/o ContrastExam Date/Time: 12/06/2023 14:48 EDT [...] Barker MD Transcribed by: LINDY Technologist: [facility] Finan CenterCortisolon 76-94-5307Kfjqatyx [Mass/Vol]12.5 microgram/dLInvalid Interpretation Code 6.2-19.4FSelect Medical Cleveland Clinic Rehabilitation Hospital, AvonComment on above:Result Comment: Please Note: The reference interval and flagging for this test is for an AM collection. If this is a PM collection please use: Cortisol PM: 2.3-11.9 Performed at: [facility] [id number] PhD Jd Garciaformed By: #### [id number] #### [facility] [address], [place] [address]B9 Freeon 37-62-8512Lzhx T3 [Mass/Vol]2.5 pg/mLInvalid Interpretation Code2.0-4.4FSelect Medical Cleveland Clinic Rehabilitation Hospital, AvonComment on above:Result Comment: Performed at: [facility] [id number] PhD Jd Garciaformed By: #### [id number] #### [facility] [address], [place] [address]Owlpruxri 84-62-2115Nbhpfjd [Catalytic activity/Vol]38 U/L Nsfnbl38-348DasompBellevue HospitalComment on above:Performed By: #### [id number] #### [facility] [address], [place] [address]QPRDBIUXXMjckcqs By: SYSTEM SYSTEM on 53-25-8459Zjfuvxt [Catalytic activity/Vol]38 U/YAymmwg97 - 157 unit/LRemisol ChemCobalamin (Vitamin B12) [Mass/Vol]328 pg/aLFuvvnj00 - 1500 pg/mLRemisol ChemCRP [Mass/Vol] 0.2 mg/dLNormal<=1.9mg/dLRemisol ChemFree T4 [Mass/Vol]0.58 ng/dLNormal0.58 - 1.64 ng/dLRemisol ChemTSH Qn4.97 m[IU]/LNormal0.34 - 5.60 mcIU/mLRemisol ChemCRP on 12-69-8670YOI [Mass/Vol]0.2 mg/dLNormal<=1.9[facility] Comment on above:Performed By: #### [id number] #### [facility] [address] [place] [address]Dzwv T4on 92-42-9924Ceue T4 [Mass/Vol]0.58 ng/dLNormal0.58-1.64 [facility] HospitalComment on above:Performed By: #### [id number] #### [facility] [address], [place] [address]QDGRRQJIWLOtpphux By: Isha Zheng on 96-68-2290ALI (Bld) [Velocity]18 mm/hNormal0 - 34 mm/FT HemeAutoSSSed Rate Automatedon 96-24-7717OCF (Bld) [Velocity]18 mm/hNormal0-34[facility] Comment on above:Performed By: #### [id number] #### [facility] [address], [place] [address]HIQiy 64-77-1499WRP Qn4.97 m[IU]/LNormal0.34-5.60B[facility]vue HospitalComment on above:Performed By: #### [id number] #### [facility] [address], [place] [address]Ekv B12on 94-63-5305Fjyavtaol (Vitamin B12) [Mass/Vol]328 pg/mL Yyfrbu02-1588LgriwqBellevue HospitalComment on above:Performed By: #### [id number] #### [facility] [address], [place] [address]Birmfn Medicine Office/Clinic Noteon 58-49-1007Chrcpv Medicine Office/Clinic NoteFanorfolk state hospital Medicine Office/Clinic Note Chief Complaint Right [...] Iron deficiency) Mild, as reported by her basin operator, labs from 2022 appear normal 6. Pre-diabetes (R73.03: Prediabetes) Last A1c Continue metformin Nutrition: - Maintain optimal weight - Calorie restriction - Plant-based diet; high polyunsatur (more content not included)...[facility] HospitalComment on above:Result Comment: Electronically Signed By: Jayant YEBOAH, Monica Varela\.br\Date and Time Signed: 11/09/23 15:56 EDTPhysician Referralon 06-43-6547Vteuqfggw Referral [id number]#1.00TIFFMorrow County HospitalAmbulatory Visit Summaryon 93-90-2493Jzfylwlnsi Visit Summary SANNA RENDON :1985 Visit Date:10/23/2023 [...] (Vitamin D) fluticasone nasal (Flonase 0.05 mg/inh [place]) metformin (MetFORMIN (Eqv-Glucophage XR) 500 mg oral [...] EDT With: Penelope CASAS DO, FAAFP [facility]/Clinic Noteon 75-99-5372Vqjtuz Medicine Office/Clinic NoteChief Complaint pt here for [...] Mouth: mucous membranes pink, moist and intact. Goltry posterior oropharynx, no palatal inflammation,uvula midline, no [...] 106.2, kg, 10/23/23 16:55:00 EDT, Weight Dosing [facility] [place]ulatory Referral 2. Nasal polyps (J33.9: Nasal polyp, unspecified) pt reported - moved before previous ENT could perform surgery - submitted new referral at this time Ordered: [facility] [place] Referral 3. Deviated septum (J34.2: Deviated nasal septum) pt reported - moved before previous ENT could perform surgery - see #2 Ordered: [facility] [place]ulatory Referral 4. BMI 37.0-37.9, adult [...] Dosing 5. Obesity ( (more content not included)...[facility] Comment on above:Result Comment: Electronically Signed By: Shirlene YEBOAH, Lourdes Baltazar\.br\Date and Time Signed: 10/23/23 17:13 EDTPatient Educationon 30-92-5917Vhleqvq EducationENT Deviated Septum The septum is the [...] specializes in ear, nose, and throat disorders (eradicator, or ENT) for more tests and treatment. [...] Follow these instructions at home: ? Take qjfl-wbb-foyfajc and prescription medicines only as told by [...] specializes in ear, nose, and throat disorders (eradicator, or ENT) for more tests and treatment. This information is not intended to replace advice given to you by your health care provider. Make sure you discuss any questions you have with your health care provider. Document Revised: 12/12/2021 Document Reviewed: 12/12/2021 [employer] Patient Education ? 2022 MYFX. Nasal Polyps Nasal polyps are growths that form in the nose. Inflammation in the nose or sinus openings can leadto changes in the tissue (mucosa) that lines these areas. Long-term inflammation causes the mucosa to grow into a polyp filled with watery mucus. Nasal polyps look like moist, ochoa grapes in the nose. Nasal polyps are not cancer (more content not included)...NormalFisher Thomas B. Finan CenterCT Abdomen/Pelvis w/o Contraston 42-00-7600DZ Abdomen/Pelvis w/o Contrast Exam Date/Time: 09/28/2023 19:58 [...] Given? No Oral contrast amount in ml's: 0NormMemorial Health SystemB hCG Qualon 36-49-1483Odwd HCG ( test) QlNegativeMorrow County Hospital Comment on above:Performed By: #### [id number] #### [facility] [address], [place] [address]COWzg 74-64-9951Gkmpq gap [Moles/Vol]13 mmol/LNormal6-16Bellevue HospitalComment on above:Performed By: #### [id number] #### [facility] [address], [place] [address]Jvwruek [Mass/Vol]9.9 mg/dLNormal8.9-11.1FSelect Medical Cleveland Clinic Rehabilitation Hospital, AvonComment on above:Performed By: #### [id number] #### [facility] [address], [place] [address]Tqpwrjjk [Moles/Vol]101 mmol/GXcdrsj707-529AylgncBellevue HospitalComment on above:Performed By: #### [id number] #### [facility] [address], [place] [address]TH0 [Moles/Vol]25 mmol/REeqwyi03-32FmrkxgBellevue Hospital Comment on above:Performed By: #### [id number] #### [facility] [address], [place] [address]Uhuayogiyl [Mass/Vol]0.9 mg/dLNormal0.5-1.3FSelect Medical Cleveland Clinic Rehabilitation Hospital, AvonComment on above:Performed By: #### [id number] #### [facility] [address], [place] [address]Jpaibah [Mass/Vol]94 mg/ySFzosqh81-659CcabjgBellevue HospitalComment on above:Performed By: #### [id number] #### [facility] [address], [place] [address]Nlvvuoclp [Moles/Vol]3.6 mmol/LNormal3.5-5.3FSelect Medical Cleveland Clinic Rehabilitation Hospital, AvonComment on above:Performed By: #### [id number] #### [facility] [address], [place] [address]Zmtxqw [Moles/Vol]135 mmol/PEvxbbr767-523XrhywrBellevue HospitalComment on above:Performed By: #### [id number] #### [facility] [address], [place] [address]Uicj nitrogen [Mass/Vol]8 mg/dLNormal5-21B[facility]vue HospitalComment on above:Performed By: #### [id number] #### [facility] [address] [place] [address]Zoct nitrogen/Creatinine [Mass ratio]9 No DiqlrLjn37-96NliqogBellevue HospitalComment on above:Performed By: #### [id number] #### [facility] [address] [place] [address]ABV w/ Auto Diffon 58-58-3083Junfszbzy/100 WBC (Bld)0.7 %Normal 0.0-2.0Bellevue HospitalComment on above:Performed By: #### [id number] #### [facility] [address] [place] [address]Explzpxqk/Leukocytes Auto (Bld) [Pure # fraction]0.1 E9/LNormal 0.0-0.2FSelect Medical Cleveland Clinic Rehabilitation Hospital, AvonComment on above:Performed By: #### [id number] #### [facility] [address] [place] [address]Hlzgljcxlqs (Bld) [#/Vol]0.0 E9/LNormal0.0-0.5FSelect Medical Cleveland Clinic Rehabilitation Hospital, AvonComment on above:Performed By: #### [id number] #### [facility] [address] [place] [address]Cpxufjmwnfv/100 WBC (Bld)0.5 %Normal0.0-8.0Bellevue HospitalComment on above:Performed By: #### [id number] #### [facility] [address] [place] [address]Bwoioubgtya distribution width (RBC) [Ratio]14.3 %High10.9-14.2 Bellevue HospitalComment on above:Performed By: #### [id number] #### [facility] [address] [place] [address]Wkenxhlsgp (Bld) [Volume fraction]39.5 %Boweek67.0-46.0B[facility]vue HospitalComment on above:Performed By: #### [id number] #### [facility] [address] [place] [address]Caijhkzzbf (Bld) [Mass/Vol]13.2 g/gTWntyrd98.0-16.0B[facility]vue HospitalComment on above:Performed By: #### [id number] #### [facility] [address] [place] [address]Tyjhgdmxrem (Bld) [#/Vol]3.5 E9/LNormal1.0-4.0B[facility]vue HospitalComment on above:Performed By: #### [id number] #### [facility] [address] [place] [address]Yndftaeokpi/100 WBC (Bld)35.6 %Syfjvg12.0-50.0B[facility]vue HospitalComment on above:Performed By: #### [id number] #### [facility] [address] [place] [address]LIJ (RBC) [Entitic mass]29.3 jqHltpwi74.0-34.0Bellevue HospitalComment on above:Performed By: #### [id number] #### [facility] [address] [place] [address]IGTP (RBC) [Mass/Vol]33.5 g/cUKosupj74.4-36.0B[facility]vue HospitalComment on above:Performed By: #### [id number] #### [facility] [address] [place] [address]KLQ (RBC) [Entitic vol]87.4 qXTofbxy22.0-100.0[facility]vue HospitalComment on above:Performed By: #### [id number] #### [facility] [address] [place] [address]Vwdcvqfdk (Bld) [#/Vol]0.7 E9/LNormal0.2-1.0B[facility]vue HospitalComment on above:Performed By: #### [id number] #### [facility] [address] [place] [address]Ozubscvbdue (Bld) [#/Vol]5.6 E9/LNormal2.0-7.5FSelect Medical Cleveland Clinic Rehabilitation Hospital, AvonComment on above:Performed By: #### [id number] #### [facility] [address] [place] [address]Ffodkuzroak/100 WBC (Bld)56.4 %Fadmot80.0-75.0B[facility]vue HospitalComment on above:Performed By: #### [id number] #### [facility] [address] [place] [address]Cmbqlthl mean volume (Bld) [Entitic vol]8.1 fLNormal6.4-10.8 [facility] HospitalComment on above:Performed By: #### [id number] #### [facility] [address] [place] [address]Sbapcjwti (Bld) [#/Vol]360.0 E9/UZgmkml465.0-500.0B[facility]vue HospitalComment on above:Performed By: #### [id number] #### [facility] [address] [place] [address]32[address]VDB (Bld) [#/Vol]4.5 E12/LNormal4.3-5.9B[facility]vue HospitalComment on above:Performed By: #### [id number] #### [facility] [address] [place] [address]XCA corrected for nucl RBC Auto (Bld) [#/Vol]9.9 E9/LNormal 4.0-11.0B[facility]vue HospitalComment on above:Performed By: #### [id number] #### [facility] [address] [place] [address]VGUJZETDGCrvcepr By: SYSTEM SYSTEM on 36-98-2381Chlrsvt [Mass/Vol]4.8 g/dLNormal3.3 - 5.0 gm/dLRemisol ChemAlbumin/Globulin [Mass ratio] 1.6 {ratio}Normal1.1 - 2.2Remisol ChemALP [Catalytic activity/Vol]66 [iU]/d Vijtcf12 - 98 Int._Unit/LRemisol ChemALT No additional P-5'-P [Catalytic activity/Vol]16 [iU]/dNormal6 - 46 Int._Unit/LRemisol ChemAnion gap [Moles/Vol] 13 mmol/LNormal6 - 16 mEq/LRemisol ChemAST [Catalytic activity/Vol]15 [iU]/d Normal5 - 43 Int._Unit/LRemisol ChemBilirubin [Mass/Vol]0.3 mg/dLNormal0.0 - 1.1 mg/dLRemisol ChemBilirubin.direct [Mass/Vol]0.0 mg/dLNormal0.0 - 0.4 mg/dL Remisol ChemBilirubin.indirect [Mass or moles/Vol]0.3 mg/dLNormal0.1 - 0.9 mg/dL Remisol ChemCalcium [Mass/Vol]9.9 mg/dLNormal8.9 - 11.1 mg/dLRemisol Chem Chloride [Moles/Vol]101 mmol/JGvdbob975 - 111 mmol/LRemisol ChemCO2 [Moles/Vol] 25 mmol/FLhcagl14 - 31 mmol/LRemisol ChemCreatinine [Mass/Vol]0.9 mg/dLNormal0.5 - 1.3 mg/dLRemisol CvteiUQR51 mL/min/1.73 u3Mkhhss>=59mL/min/1.73 t3Ekkwyhw ChemGlobulin (S) [Mass/Vol]3.0 g/dLNormal1.4 - 4.0 gm/dLRemisol ChemGlucose [Mass/Vol]94 mg/mQUrpeol92 - 199 mg/dLRemisol ChemLipase [Catalytic activity/Vol]26 U/SIhrvmd85 - 58 unit/LRemisol ChemPotassium [Moles/Vol]3.6 mmol/LNormal3.5 - 5.3 mmol/LRemisol ChemProtein [Mass/Vol]7.8 g/dLNormal6.0 - 7.8 gm/dLRemisol ChemSodium [Moles/Vol]135 mmol/GEckmfv333 - 145 mmol/LRemisol ChemUrea nitrogen [Mass/Vol]8 mg/dLNormal5 - 21 mg/dLRemisol ChemUrea nitrogen/Creatinine [Mass ratio]9 mg/mgLow10 - 20Remisol ChemConsent for Treatmenton 06-79-3360Dajlery for Treatment [id number] CenterDischarge Instructionson 34-85-3004Ofpigslqk Instructions [id number] Hospitals [facility] Clinical Summaryon 32-39-2123KW Clinical Summary [place] [id number] ED Clinical Summary Person Information Name: SANNA RENDON [facility] Age: 37 Years : 1985 Sex: Female Language: Kosovan PCP: Penelope CASAS DO, FAAFP Marital Status: Phone: [phone] Visit Id: Visit Reason: Medical problem - [...] 21:22:15 09/28/2023 21:22:15 09/28/2023 21:22:15 AD[facility]: [facility] [id number] PHYS DOC NOTES: MEDICAL INFORMATION: Prescriptions Given: Medications to Continue with No Changes Other Medications enoxaparin (Lovenox 40 mg/0.4 mL Injection) 40 Milligram Subcutaneous every 24 hours. ergocalciferol (Vitamin D) 2,000 International unit By Mouth every week. fluticasone nasal (Flonase 0.05 mg/inh [place]) 2 Sprays Nasal Inhalation every day. each nostril. metformin (MetFORMIN (Eqv-Glucophage XR) 500 mg oral tablet, extended release) 2 Tablets By Mouth every day. PATIENT EDUCATION INFORMATION: Instructions: Abdominal Pain, Adult Follow up: With: Address: When: Penelope CASAS [address] [place] [address], [place] [address] Business (1) In 3 days DIAGNOSIS: 1:Abdominal painNoCleveland Clinic South Pointe Hospital CenterED Note-Physicianon 09-28-2023 ED Note-PhysicianPatient was [...] understanding agreement this plan is discharged stable condition.[facility] HospitalComment on above:Result Comment: Electronically Signed [...] mL, IV, Once Home Flonase 0.05 mg/inh [place], 2 spray(s), Nasal, Daily Lovenox 40 mg/0.4 [...] Lab Results No qual (more content not included)...[facility] HospitalComment on above:Result Comment: Electronically Signed By: Bijan Miramontes PA-C\.br\Date and Time Signed: 09/27/2417:50 EDT\.br\Electronically Co-Signed By: Benny Uribe DO\.br\Date and Time Co-Signed: 09/27/2418:44 EDTED Patient Education Noteon 56-54-6999HU Patient Education NoteGastroenterology Abdominal Pain, Adult Pain [...] these instructions at home: Medicines ? Take puyq-lcu-diqzyhi and prescription medicines only as told by [...] your condition for any changes. ? Take tqpz-ydt-ccfhlly and prescription medicines only as told by [...] Reviewed: 08/25/2019 Else[employer] Patient Education ? 2022 MYFX.[facility] ED Patient Summaryon 34-91-3558MT Patient Summary [address] [address] Patient Discharge Instructions Person Information Name: SANNA RENDON Age: 37 Years Arrival Date: 09/28/2023 18:21:25 Discharge Diagnosis: 1:Abdominal pain Primary Care Physician: Penelope CASAS DO, FAAFP Provider Information Primary Provider: Benny Uribe DO [employer] Support Worker:Bijan Miramontes PA-C The exam and treatment you received in the Emergency Department were for an urgent problem and are not intended as complete care. It is important that you follow up with a doctor, nurse practitioner,or physician?s sound assistant for ongoing care. If your symptoms [...] Follow-up Instructions: With: Address: When: Penelope CASAS [address] [place] [address], [place] [address] Business (1) In 3 days In the event that this physician does not participate in your insurance network, please consult with your insurance company to find a nearby participating provider. Patient Education Materials: Abdominal Pain, Adult A MESSAGE TO ALL PATIENTS REGARDING OPIOIDS PRESCRIPTION OPIOIDS: WHAT YOU NEED TO KNOW Prescription opioids can be used to help relieve siriohgn-mp-xkinut pain and are often prescribed following a [...] your community drug take- back program or yourOvonyxrmacy mail-back program, or flush them down the toilet, following guidance from the Food and Drug Administration (www.fda.gov/Drugs/ResourcesForYou). ? Visit www.cdc.gov/drugoverdose to learn about the risks of opioids abuse and overdose. ? If you believe you may be struggling with addiction, tell your health care transition manager and ask for guidance or call [facility]?S National Helpline at 4-178-420-iRates. v Source: Dep (more content not included)...[facility] Family Medicine Office/Clinic Noteon 08-75-7683Wmzebx Medicine Office/Clinic NoteChief Complaint abdominal pain HPI [...] agree with above documented HPI by medical receptionist medical assistant. Portions of this record may have been created with voice recognition artificial intelligence software, specifically [employer], [employer] and or [employer]. Substitutions may have occurred due to the inherent limitations of voice recognition and artificial intelligence software. Patient is a 37-year-old female who presents to [facility] care, for right lower quadrant [...] Repeat BP 140/90. 37-year-old female presented to [facility], for right lower quadrant abdominal pain, worseningsymptoms throughout the day, history of ovarian cyst, still has her appendix, no right upper quadrant pain. Patient worsening pain on exam, but no acute abdomen. Patient is willing to go to the emergency room after being discharged from [facility], for further evaluation of right lower quadrant [...] loss. We can o (more content not included)...[facility] HospitalComment on above:Result Comment: Electronically Signed By: CHARLA QUINTEROS, JANET\.br\Date and Time Signed: 09/28/23 18:28 EDTHEMATOLOGYOrdered By: SYSTEM SYSTEM on 12-60-7105Gjyndxuyj/100 WBC (Bld)0.7 %Normal0.0 - 2.0 %Remisol HemeBasophils/Leukocytes Auto (Bld) [Pure # fraction]0.1 E9/LNormal0.0 - 0.2 E9/LRemisol HemeEosinophils (Bld) [#/Vol]0.0 E9/LNormal0.0 - 0.5 E9/LRemisol HemeEosinophils/100 WBC (Bld)0.5 % Normal0.0 - 8.0 %Remisol HemeErythrocyte distribution width (RBC) [Ratio]14.3 % High10.9 - 14.2 %Remisol HemeHematocrit (Bld) [Volume fraction]39.5 %Nlrsma47.0 - 46.0 %Remisol HemeHemoglobin (Bld) [Mass/Vol]13.2 g/iCUvfdae49.0 - 16.0 gm/dL Remisol HemeLymphocytes (Bld) [#/Vol]3.5 E9/LNormal1.0 - 4.0 E9/LRemisol Heme Lymphocytes/100 WBC (Bld)35.6 %Ttcitt69.0 - 50.0 %Remisol HemeMCH (RBC) [Entitic mass]29.3 pfWhtufe12.0 - 34.0 pgRemisol HemeMCHC (RBC) [Mass/Vol]33.5 g/dL Rabhji14.4 - 36.0 gm/dLRemisol HemeMCV (RBC) [Entitic vol]87.4 zFCrrtwn81.0 - 100.0 fLRemisol HemeMonocytes (Bld) [#/Vol]0.7 E9/LNormal0.2 - 1.0 E9/LRemisol HemeMonocytes/100 WBC (Bld)6.8 %Normal4.0 - 14.0 %Remisol HemeNeutrophils (Bld) [#/Vol]5.6 E9/LNormal2.0 - 7.5 E9/LRemisol HemeNeutrophils/100 WBC (Bld)56.4 % Isjhii06.0 - 75.0 %Remisol HemePlatelet mean volume (Bld) [Entitic vol]8.1 fL Normal6.4 - 10.8 fLRemisol HemePlatelets (Bld) [#/Vol]360.0 E9/OSimyma710.0 - 500.0 E9/LRemisol HemeRBC (Bld) [#/Vol]4.5 E12/LNormal4.3 - 5.9 E12/LRemisol HemeWBC corrected for nucl RBC Auto (Bld) [#/Vol]9.9 E9/LNormal4.0 - 11.0 E9/L Remisol HemeHep Func Panelon 97-94-3457Wvrmznh [Mass/Vol]4.8 g/dLNormal3.3-5.0 [facility] HospitalComment on above:Performed By: #### [id number] #### [facility] [address], [place] [address]Lbhydvp/Globulin (S) [Mass conc ratio]1.7Luqfgb4.1-2.2FSelect Medical Cleveland Clinic Rehabilitation Hospital, AvonComment on above:Performed By: #### [id number] #### [facility] [address] [place] [address]EYH [Catalytic activity/Vol]66 Int._Unit/DMethoe29-30DbhkqcBellevue HospitalComment on above:Performed By: #### [id number] #### [facility] [address] [place] [address]AEZ No additional P-5'-P [Catalytic activity/Vol]16 Int._Unit/L Normal6-46B[facility] HospitalComment on above:Performed By: #### [id number] #### [facility] [address] [place] [address]40ZGO [Catalytic activity/Vol]15 Int._Unit/LNormal5-43[facility] HospitalComment on above:Performed By: #### [id number] #### [facility] [address] [place] [address]Jljdydkuo [Mass/Vol]0.3 mg/dLNormal0.0-1.1FSelect Medical Cleveland Clinic Rehabilitation Hospital, AvonComment on above:Performed By: #### [id number] #### [facility] [address] [place] [address]Romthnlic.direct [Mass/Vol]0.0 mg/dLNormal0.0-0.4FSelect Medical Cleveland Clinic Rehabilitation Hospital, AvonComment on above:Performed By: #### [id number] #### [facility] [address] [place] [address]Mfhwipkbv.indirect [Mass or moles/Vol]0.3 mg/dLNormal0.1-0.9 [facility] HospitalComment on above:Performed By: #### [id number] #### [facility] [address], [place] [address]Ygshrxzg (S) [Mass/Vol]3.0 g/dLNormal1.4-4.0B[facility] HospitalComment on above:Performed By: #### [id number] #### [facility] [address], [place] [address]Owcavrg [Mass/Vol]7.8 g/dLNormal6.0-7.8[facility] HospitalComment on above:Performed By: #### [id number] #### [facility] [address], [place] [address]Sckron Levelon 47-48-6160Mxwthn [Catalytic activity/Vol]26 U/L Dpmywt78-16SgnlyhBellevue HospitalComment on above:Performed By: #### [id number] #### [facility] [address], [place] [address]Vfazirj Educationon 86-87-2623Dgnbnse EducationCardiovascular Hypertension, Adult Hypertension is another name [...] Keep all follow-up visits. Medicines ? Take poqm-pcw-nttlkwc and prescription medicines only as told by [...] blood. ? For m (more content not included)...[facility] HospitalRAD - Preliminary Cat Scan Reporton 47-25-2206OQD - Preliminary Cat Scan Report [id number]#1.00TIFFNormalHighland District HospitalEROLOGYOrdered By: Amanda Siegel on 37-47-8321Bvzd HCG ( test) QlNegative (09/28/23 6:59 PM)[facility] Man SeroUA with Cult Rflxon 76-12-3036Hcnvzojzr Ql (U)NegativeNormalNegativeBellevue HospitalComment on above:Performed By: #### [id number] ####[facility] Cfymjdlvjt[address] AveNornyu langone hassenfeld children's hospitalk, [address]Nlptyib (U)ClearNormalClearAdventhealther Thomas B. Finan CenterComment on above:Performed By: #### [id number] ####[facility] Waenfzxrdm[address] AveNorwalk, [place]Tskwe (U)ColorlessAbnormalYellowBellevue HospitalComment on above:Result Comment: Microscopic readings are only performed on those samples that meet specific criteria set forth by [facility].Performed By: #### [id number] ####[place] [address] AveNthe institute of living, QX[address]Xwsddrg Ql (U)Negative NormalNegativeBellevue HospitalComment on above:Performed By: #### [id number] ####[address] AveNorrockville general hospital, [place] [address]Poxbexopvc Auto test strip (U) [Mass/Vol]NegativeNormalNegativeBellevue HospitalComment on above:Performed By: #### [id number] ####[place] [address] AveNorrockville general hospital, [place]Lrsruhm Auto test strip Ql (U)NegativeNormalNegativeBellevue HospitalComment on above: Performed By: #### [id number] ####[place] [address] AveNorrockville general hospital, LE[address]Bsxvrhpcp esterase Auto test strip Ql (U)Negative NormalNegativeBellevue HospitalComment on above:Performed By: #### [id number] ####[facility] Jdhwlalhuf[address] Hope AveNorrockville general hospital, [place] [address]Gvegnbw Auto test strip Ql (U)NegativeNormalNegativeBellevue HospitalComment on above:Performed By: #### [id number] ####[place] [address] AveNorwalk, [place]vI (U)7.0 [pH]Invalid Interpretation Code5.0-9.0B[facility]vue HospitalComment on above:Performed By: #### [id number] ####[facility] Usujxjfiaz[address] [facility], CV[address]Qavqtef Ql (U)NegativeNormalNegativeBellevue HospitalComment on above:Performed By: #### [id number] ####[facility] Izopvwwjvt[address] [facility], DT[address]Fecliyyx gravity (U) [Rel density]1.003Invalid Interpretation Code1.005-1.030[facility] Comment on above:Performed By: #### [id number] ####[address], [place]Rqhiadakqbkx (U) [Mass/Vol]Negative NormalNegativeBellevue HospitalComment on above:Performed By: #### [id number] ####[place] [address] [facility] [place] [address]Zsvq of Urine collection methodClean [facility] Comment on above:Performed By: #### [id number] ####[place] [address] [facility] JP669[address]BRMUFSOFNCDxntthq By: SYSTEM SYSTEM on 45-83-9878Gpsqepval Ql (U)NegativeNormalNegativemg/dLOKEENE [facility] UA Auto SSClarity (U) Clear (09/28/23 7:35 PM)NormalClearFTMC UA Auto SSColor (U)Colorless 1 *ABN* (09/28/23 7:35 PM)Invalid Interpretation CodeYellowOKEENE MUNICIPAL HOSPITAL [facility] [place] UA Auto SSComment on above:Interpretive Data: Microscopic readings are only performed on those samples that meet specific criteria set forth by [facility].Glucose Ql (U)NegativeNormalNegativemg/dLFT UA Auto SSHemoglobin Auto test strip (U) [Mass/Vol]NegativeNormalNegativemg/dLFT UA Auto SSKetones Auto test strip Ql (U)NegativeNormalNegativemg/dLFT UA Auto SSLeukocyte esterase Auto test strip Ql (U)NegativeNormalNegativeLeu/uLFT UA Auto SS Nitrite Auto test strip Ql (U)NegativeNormalNegativemg/dLFT UA Auto SSpH (U) 7.0 *NA* (09/28/23 7:35 PM)Invalid Interpretation Code5.0 - 9.0[facility] [place] UA Auto SSProtein Ql (U)NegativeNormalNegativemg/dLOKEENE M[facility]ICIP[facility] [place] UA Auto SSSpecific gravity (U) [Rel density] 1.003 *NA* (09/28/23 7:35 PM)Invalid Interpretation Code1.005 - 1.030O[facility] UA Auto SS Urobilinogen (U) [Mass/Vol]NegativeNormalNegativemg/dLOKEENE M[facility]IP[facility] [place] UA Auto SSURINALYSIS Ordered By: Bijan Miramontes on 69-88-4312GL Spec DescClean Catch (09/28/23 7:35 PM)NormalOKEENE MUNICIPAL [facility]OSP[facility] [place] UA Auto SS egFRon 03-42-0185pEXY15 mL/min/1.73 l4Bhbvdq>=59Fisher Thomas [facility]. Finan CenterComment on above:Order Comment: Order added by Discern Expert.Performed By: #### [id number] #### [facility] [address], [place] [address]Lvkrclsawi Visit Summaryon 73-09-7022Hesxmphxqm Visit Summary SANNA RENDON :1985 Visit Date:08/03/2023 [...] (Vitamin D) fluticasone nasal (Flonase 0.05 mg/inh [place]) metformin (MetFORMIN (Eqv-Glucophage XR) 500 mg oral [...] PED When: In 4 months Where: [address] [place] [address]- You Need to Complete the Following HgbA1c, [...] Unchanged fluticasone nasal (Flonase 0.05 mg/ inh [place]) 2 Sprays Nasal Inhalation Every day each [...] ? Walking a mile (more content not included)...[facility] Medicine Office/Clinic Noteon 41-87-4816Yypgmy Medicine Office/Clinic NoteChief Complaint Wants to discuss [...] comfortable with plan. PNMV Ordered: A1c POC 94725 Total time spent preparing the chart, conducting [...] FAAFP, FAM, PED In 4 months [address] [facility], [facility] [place] [address]- Additional Instructions: Patient Education Exercising to Lose Weight Problem Lis (more content not included)...[facility] Comment on above:Result Comment: Electronically Signed By: Penelope CASAS DO, FAAFP\.br\Date and Time Signed: 08/03/23 12:19 [facility]2023 Patient EducationPhysical Medicine and Rehabilitation [...] health care provider or diet and nutritional services host (dietitian). This may include: ? Eating fewer [...] regular exercise is e (more content not included)...[facility] HospitalPatient Educationon 40-98-2457Adsubsh EducationEndocrinology Blood Glucose Monitoring, Adult Monitoring your [...] meter by following in (more content not included)...[facility] HospitalLab Reportson 73-64-0613Vul Reports [id number]#1.00[facility] CenterConsultation Noteon 66-29-6325Wndmmwvpnjht Note [id number]#1.00[facility] Medical CenterAmbulatory Visit Summaryon 32-06-1322Vemtqurzzt Visit Summary SANNA RENDON :1985 Visit Date:05/25/2023 [...] EDT With: Penelope CASAS DO, FAAFP [facility] Office/Clinic Noteon 89-98-6063Wcjvdr Medicine Office/Clinic NoteChief Complaint States she is [...] Benadryl. 2. Dyshidrotic eczema (L30.1: Dyshidrosis [pompholyx]) Oazq-udq-zxjcqah hydrocortisone cream 1% or 2.5% as directed. [...] FAAFP, FAM, PED In 2 months [address] [facility], [place] [address]- Additional Instructions: Patient Education Eustachian Tube Dysfunction Dyshidrotic Eczema Allergies, Tadeo (more content not included)...[facility] Comment on above:Result Comment: Electronically [...] ears completely after. General instructions ? Take zmfv-vrz-hwuspfv and prescription medicines only as told by [...] cases are treated w (more content not included)...[facility] Urineon 53-13-4892Wzufvzxs identified Cx Nom (U) Microbiology PROCEDURE: Urine Culture [R1] SOURCE: U Random BODY SITE: COLLECTED DATE/TIME: 05/01/2023 18:00 EST RECEIVED DATE/TIME: 05/01/2023 18:08 EST START DATE/TIME: 05/01/2023 18:08 EST FREE TEXT SOURCE: Penelope CASAS DO, FAAFP, DO, FAAFP, Penelope Tony FINAL REPORTS Final Report [] Verified Date/Time: 05/03/2023 07:00 EST <10,000 cfu/ml Mixed skin contaminants Performing Locations R1: This test was performed at: [facility], [address] [place] [address], [address]- , [place], CjlgiuOtaqmdKettering Health SpringfieldComment on above:Performed By: #### [id number] ####[address] [address]Afcgqcf for Treatmenton 13-87-2970Dpjglnv for Treatment [id number]#1.00TIFFMorrow County HospitalUrinalysison 39-34-9502Ouskdcgl LM Ql (Urine sed)TRACENormalTraceBellevue HospitalComment on above:Performed By: #### [id number] ####[address] [address]Iuhkkpjzz Ql (U) NegativeNormalNegativeBellevue HospitalComment on above:Performed By: #### [id number] ####[address] [address]Resyhra (U)CLOUDYAbnormalClearFSelect Medical Cleveland Clinic Rehabilitation Hospital, AvonComment on above:Performed By: #### [id number] ####[address] [address]Wyjoh (U)YELLOWNormalYellowBellevue HospitalComment on above:Performed By: #### [id number] ####[address] [address]Fwgakzhcae cells.squamous LM.HPF (Urine sed) [#/Area]/[HPF]Normal0-2FSelect Medical Cleveland Clinic Rehabilitation Hospital, AvonComment on above:Performed By: #### [id number] ####[address] [address]Iungpis Test strip (U) [Mass/Vol]NegativeNormal NegativeBellevue HospitalComment on above:Performed By: #### [id number] ####[address] [address] Hemoglobin Ql (U)NegativermalNegRegency Hospital Cleveland EastComment on above:Performed By: #### [id number] ####[address] [address]Tyjfgte (U) [Mass/Vol]NegativeNormalNegativeBellevue HospitalComment on above:Performed By: #### [id number] ####[address] [address] [place].plasma/[place].RBC (Bld) [Mass ratio]4-9Yuvssh7-5Cqjtic Thomas [facility]. Finan CenterComment on above:Performed By: #### [id number] ####[address] [address]Criqiwk Ql (U)NegativeNormal [facility] Shriners HospitalComment on above:Performed By: #### [id number] ####[address] [address]wL (U)6.0 [pH]Invalid Interpretation Code5.0-9.0B[facility] HospitalComment on above:Performed By: #### [id number] ####[address] [address]Edlbftz (U) [Mass/Vol]NegativeNormal NegativeBellevue HospitalComment on above:Performed By: #### [id number] ####[address] [address] Specific gravity (U) [Rel density]<=1.005Invalid Interpretation Code1.005-1.030 [facility] HospitalComment on above:Performed By: #### [id number] ####[address] [address]Fekr of Urine collection methodClean CatchNormalBellevue HospitalComment on above:Performed By: #### [id number] ####[address], [place] [address]Rzijernjcpzh Qn (U)0.2 {Nicole'U}/dLNormal0.0-1.0 [facility] HospitalComment on above:Performed By: #### [id number] ####[facility] [address] [place], [place] [address]KJL Auto Ql (U)TRACEAbnormalNegativeBellevue HospitalComment on above: Performed By: #### [id number] ####[facility] [address] [place], [place] [address]RVA LM.HPF (Urine sed) [#/Area]4-4Orzsas2-1Orabsr [facility] Fin[facility] CenterComment on above:Performed By: #### [id number] ####[facility] [address] [place], [place] [address]Znmzddroni Visit Summaryon 70-33-8985Zpccdmolps Visit Summary SANNA RENDON :1985 Visit Date:04/27/2023 [...] EST With: Penelope CASAS DO, FAAFP [facility] CHEMISTRYOrdered By: SYSTEM SYSTEM on 63-45-2864VUT Qn4.04 m[IU]/LNormal0.34 - 5.60 mcIU/mLRemisol ChemBristol County Tuberculosis Hospital Medicine Office/Clinic Noteon 02-62-1949Aytbki Medicine Office/Clinic NoteChief Complaint Since last Sunday has been having joint pain with burning sensation and has been having diarrheawith stomach pain. States her kids are sick. Also has been having burning in her nipples, she is . Wants her thyroid checked. History of Present Illness Children are sick at home and has been having diarrhea since Sunday before [place], nonbloody with some associated stomach pain. She has been having some burning in her nipples when she is breast-feeding and wants her thyroid checked. Muscle aches and pains like flu Still breast feeding. No loss of taste nor smell. [id number] while taking Glucophage XR 500 mg p.o. [...] Push fluids and Tylenol and or ibuprofen grif-zev-ydkhegi as directed. Patient does not appear ill [...] Your BMIand weight manag (more content not included)...[facility] HospitalComment on above: Result Comment: Electronically Signed By: PRAVEEN RESENDEZ FAAFP, Penelope Tony\.br\Date and Time Signed: 04/27/23 12:53 ESTPatient Educationon 65-27-2702Rxdbfcg Education Endocrinology Diabetes Mellitus and Exercise Exercising [...] plan? Your health care provider or certified corporate travel executive can help you make a plan for [...] stroke). Where to find more information ? [place] [employer]: www.diabetes.org Summary ? Exercising regularly is important for overall health, especially for people who have diabetes mellitus. ? Exercising has many health benefits. It increases muscle strength and bone density and reduces body fat and stress. It also lowers and controls blood glucose. ? Your health care provider or certified corporate travel executive can help you make an activity plan [...] provider. Document Revised: 01/12/2020 Document Reviewed: 01/12/2020 [employer] Patient Education ? 2022 [employer] Preventing Hypoglycemia Hypoglycemia occurs when the level of sugar (glucose) in the blood is too low. Hypoglycemia can happen in people who do or do not have diabetes (diabetes (more content not included)...NormalBellevue HospitalTSHon 70-10-2923DNU Qn 4.04 m[IU]/LNormal0.34-5.60[facility] HospitalComment on above:Performed By: #### [id number] ####[facility] [address] [place], [place] [address]Tlimyrzjcp Visit Summaryon 26-42-5937Uhdotdzich Visit Summary SANNA RENDON :1985 Visit Date:02/15/2023 [...] PED When: In 2 months Where: [address] [place] [address]- You Need to Complete the Following HgbA1c, [...] miscarriage Suspected COVID-19 virus infection Vaginal tabitha [facility] Medicine Office/Clinic Noteon 38-68-1656Bzybmk Medicine Office/Clinic NoteChief Complaint States since Sunday her right ear is draining and is a little painful History of Present Illness [employer] draining since Sunday evening and a little [...] pain of ear shake well before using, [facility] 1985, 168, cm, 02/15/23 9:49:00EDT, Height/Length [...] in , unspecified control) Followed per her heel shaper. She is continuing 500 mg of metformin [...] Contact Information PRAVEEN Johnson (more content not included)...[facility] HospitalComment on above:Result Comment: Electronically Signed [...] cannot use soap and water, use hand instructional writer. 2. Make sure your ears are clean [...] cannot use soap and water, use hand instructional writer. Follow these instructions at home: ? Use [...] Reviewed: 02/11/2020 Elsevier Patient Education ? 2022 [employer] Infectious Disease Otitis Externa Otitis externa [...] you start to feel better. ? Take ljxv-fgs-sstfzgy and prescription medicines only as told by your doctor. ? Avoid getting water in your ears as told by your doctor. You may be told to avoid swimming or water sports for a few days. ? Keep all follow-up visits. How is this prevented? ? Keep your ears dry. Use the corner o (more content not included)...Normal [facility] HospitalPatient Educationon 49-56-3298Gkdvnwf Education Immunology Fatigue If you have fatigue, [...] these instructions at home: Medicines ? Take hvgc-rha-rhhxxyw and prescription medicines only as told by [...] the National Suicide Prevention Lifeline at or 669. This is open 24 hours a day. ? Text the Crisis Text Line at 224719. Summary ? If you have fatigue, you [...] provider. Document Revised: 02/06/2022 Document Reviewed: 02/06/2022 [employer] Patient Education ? 2022 [employer] Urology Urodynamic Testing Urodynamic tests are [...] ? Leaking urine (inco (more content not included)...NormalBellevue HospitalCHEMISTRYOrdered By: SYSTEM SYSTEM on 91-22-4257Usgp T4 [Mass/Vol]0.58 ng/dLNormal0.58 - 1.64 ng/dLFTMC RemisolTSH Qn3.35 m[IU]/LNormal0.34 - 5.60 mcIU/mLFTMC RemisolAlbumin [Mass/Vol]4.5 g/dLNormal3.3 - 5.0 gm/dLFTMC Remisol Albumin/Globulin [Mass ratio]1.4 {ratio}Normal1.1 - 2.2FT[facility] RemisolALP [Catalytic activity/Vol]62 [iU]/aMjfdwm01 - 98 Int._Unit/LFTMC RemisolALT No additional P-5'-P [Catalytic activity/Vol]27 [iU]/dNormal6 - 46 Int._Unit/LFTMC RemisolAnion gap [Moles/Vol]13 mmol/LNormal6 - 16 mEq/LFTMC RemisolAST [Catalytic activity/Vol]21 [iU]/dNormal5 - 43 Int._Unit/LFTMC RemisolBilirubin [Mass/Vol]0.3 mg/dLNormal0.0 - 1.1 mg/dLFTMC RemisolCalcium [Mass/Vol]9.6 mg/dL Normal8.9 - 11.1 mg/dLFTMC RemisolChloride [Moles/Vol]104 mmol/KUwrxfr872 - 111 mmol/LFTMC RemisolCO2 [Moles/Vol]25 mmol/QZhxwsa66 - 31 mmol/LFTMC Remisol Cobalamin (Vitamin B12) [Mass/Vol]211 pg/rSQzgrbb27 - 1500 pg/mLFTMC Remisol Creatinine [Mass/Vol]0.9 mg/dLNormal0.5 - 1.3 mg/dLFTMC RemisolFerritin [Mass/Vol]38 ng/fDWpulkg99 - 307 ng/mLFTMC RemisolFolate [Mass/Vol]13.5 ng/mL Normal>=6.7ng/mLFTMC RemisolGFR/1.73 sq M.predicted among non-blacks MDRD (S/P/Bld) [Vol rate/Area]85 mL/min/1.73 y3Vbxwcx>=59mL/min/1.73 m2FTMC Chem S Globulin (S) [Mass/Vol]3.3 g/dLNormal1.4 - 4.0 gm/dLFTMC RemisolGlucose [Mass/Vol]93 mg/uAHjxsrc43 - 199 mg/dLFTMC RemisolIron [Mass/Vol]56 ug/dLNormal 35 - 153 mcg/dLFTMC RemisolIron binding capacity [Mass/Vol]395 ug/fEHmvdig622 - 400 mcg/dLFTMC RemisolPotassium [Moles/Vol]3.7 mmol/LNormal3.5 - 5.3 mmol/LFTMC RemisolProtein [Mass/Vol]7.8 g/dLNormal6.0 - 7.8 gm/dLFTMC RemisolSodium [Moles/Vol]138 mmol/MSvdbgq052 - 145 mmol/LFTMC RemisolTransferrin [Mass/Vol]282 mg/uULlvysf210 - 370 mg/dLFTMC RemisolUrea nitrogen [Mass/Vol]11 mg/dLNormal5 - 21 mg/dLFTMC RemisolUrea nitrogen/Creatinine [Mass ratio]12 mg/dcTcqrqd74 - 20 [facility] RemisolHEMATOLOGYOrdered By: SYSTEM SYSTEM on 67-35-1919Apkbzpjsl/100 WBC (Bld)0.6 %Normal0.0 - 2.0 %[facility] HemeAutoSSBasophils/Leukocytes Auto (Bld) [Pure # fraction]0.0 E9/LNormal0.0 - 0.2 E9/LFTMC HemeAutoSSEosinophils/100 WBC (Bld) 1.1 %Normal0.0 - 8.0 %[facility] HemeAutoSSEosinophils/Leukocytes Auto (Bld) [Pure # fraction]0.1 E9/LNormal0.0 - 0.5 E9/LFTMC HemeAutoSSLymphocytes/100 WBC (Bld) 42.4 %Dbidsu79.0 - 50.0 %[facility] HemeAutoSSLymphocytes/Leukocytes Auto (Bld) [Pure # fraction]3.4 E9/LNormal1.0 - 4.0 E9/LFTMC HemeAutoSSMonocytes/100 WBC (Bld)8.0 %Normal4.0 - 14.0 %[facility] HemeAutoSSMonocytes/Leukocytes Auto (Bld) [Pure # fraction]0.6 E9/LNormal0.2 - 1.0 E9/LFTMC HemeAutoSSNeutrophils/100 WBC (Bld) 47.9 %Djaefq75.0 - 75.0 %[facility] HemeAutoSSNeutrophils/Leukocytes Auto (Bld) [Pure # fraction]3.8 E9/LNormal2.0 - 7.5 E9/LFTMC HemeAutoSSHEMATOLOGYOrdered By: Trena Castro on 59-60-5495Llxvqbjndlj distribution width (RBC) [Ratio]14.5 % High10.9 - 14.2 %[facility] HemeAutoSSHematocrit (Bld) [Volume fraction]37.4 %Normal 34.0 - 46.0 %[facility] HemeAutoSSHemoglobin (Bld) [Mass/Vol]13.1 g/qAUzadhu92.0 - 16.0 gm/dLFTMC HemeAutoSSMCH (RBC) [Entitic mass]30.6 niOctnor23.0 - 34.0 pgFTMC HemeAutoSSMCHC (RBC) [Mass/Vol]34.9 g/fSUuzrgz20.4 - 36.0 gm/dLFTMC HemeAutoSS MCV (RBC) [Entitic vol]87.7 lZKgwjxj17.0 - 100.0 fLFTMC HemeAutoSSPlatelet mean volume (Bld) [Entitic vol]8.2 fLNormal6.4 - 10.8 fLFTMC HemeAutoSSPlatelets (Bld) [#/Vol]334.0 E9/CElqyln749.0 - 500.0 E9/LFTMC HemeAutoSSRBC (Bld) [#/Vol] 4.3 E12/LNormal4.3 - 5.9 E12/LFTMC HemeAutoSSWBC corrected for nucl RBC Auto (Bld) [#/Vol]7.9 E9/LNormal4.0 - 11.0 E9/LFTMC HemeAutoSSCHEMISTRYOrdered By: SYSTEM SYSTEM on 90-14-1665Ewob T4 [Mass/Vol]0.58 ng/dLNormal0.58 - 1.64 ng/dL [facility] RemisolTSH Qn3.10 m[IU]/LNormal0.34 - 5.60 mcIU/mLFTMC RemisolCHEMISTRY Ordered By: Valeri German on 20-71-9076OaM1j (Bld) [Mass fraction]5.9 %Normal <=5.9%[facility] ChemAutoSSCHEMISTRYOrdered By: SYSTEM SYSTEM on 01-12-2068Nlrg T4 [Mass/Vol]0.71 ng/dLNormal0.58 - 1.64 ng/dLFT[facility] RemisolTSH Qn3.77 m[IU]/LNormal 0.34 - 5.60 mcIU/mL[facility] RemisolCBC AUTO DIFFon 12-49-5078ONKZ #0.0 103/ulNormal 0.0-0.1The Kettering HealthComment on above:Performed By: #### HIV12 #### [facility] [address] [address] [address] Edward GillBasophils/100 WBC (Bld)0.4 %Normal0.2-2.0[facility] Comment on above:Performed By: #### HIV12 #### [facility] [address] [address] [address] Edward Traore #0.1 103/ulNormal0.0-0.7The [facility]tering HealthComment on above: Performed By: #### HIV12 #### [facility] [address] [address] [address] Edward Calhounosinophils/100 WBC (Bld)1.3 %Normal0.9-7.0The [facility] Comment on above:Performed By: #### HIV12 #### [facility] [address] [address] [address] Edward Calhounrythrocyte distribution width (RBC) [Ratio]16.6 %Critically high 11.0-15.0The [facility]tering HealthComment on above:Performed By: #### HIV12 #### [facility] [address] [address] [address] Edward GillHematocrit (Bld) [Volume fraction]30.2 %Critically low36.0-48.0 The [facility]tering HealthComment on above:Performed By: #### HIV12 #### [facility] [address] [address] [address] Edward GillHemoglobin (Bld) [Mass/Vol]10.5 g/dLCritically low12.0-16.0The [facility]tering HealthComment on above:Performed By: #### HIV12 #### [facility] [address] [place] [address] Dr. Edward Ray #0.04 10e3/ulCritically high0.00-0.03[facility] Comment on above:Performed By: #### HIV12 #### [facility] [address] [place] [address] Dr. Edward Ray %0.4 %Normal0.0-0.5The [facility]tering HealthComment on above: Performed By: #### HIV12 #### [facility] [address] [place] [address] Dr. Edward Velásquez #3.1 103/ulNormal1.2-3.8The [facility]tering HealthComment on above:Performed By: #### HIV12 #### [facility] [address] [place] [address] Dr. Edward Alvarezhocytes/100 WBC (Bld)34.2 %Eqvgag01.5-60.0Mercy HospitalComment on above:Performed By: #### HIV12 #### [facility] [address] [place] [address] Dr. Edward SimmonsUAL DIFF REQNONormalThe [facility]tering HealthComment on above: Performed By: #### HIV12 #### [facility] [address] [place] [address] Dr. Edward June (RBC) [Entitic mass]30.3 tpPyiqgp76.7-34.0The [facility] HealthComment on above:Performed By: #### HIV12 #### [facility] [address] [place] [address] Dr. Edward June (RBC) [Mass/Vol]34.8 g/pLQnhnwc99.9-35.2The [facility] HealthComment on above:Performed By: #### HIV12 #### [facility] [address] [place] [address] Dr. Edward Desai (RBC) [Entitic vol]87.0 kCOkvxyz78.0-99.0The Montgomeryville HospitalComment on above:Performed By: #### HIV12 #### [facility] [address] [place] [address] Dr. Edward Rosas #0.7 103/ulNormal0.3-0.8The [facility]ville HospitalComment on above:Performed By: #### HIV12 #### [facility] [address] [place] [address] Dr. Edward Ignacioocytes/100 WBC (Bld)7.5 %Normal1.7-12.0[facility] Comment on above:Performed By: #### HIV12 #### [facility] [address] [place] [address] Dr. Edward Guevara #5.0 103/ulNormal1.4-6.5The [facility]tering HealthComment on above:Performed By: #### HIV12 #### [facility] [address] [place] [address] Dr. Edward Moralesutrophils/100 WBC (Bld)56.2 %Bnjgjz42.0-75.0The [facility]tering HealthComment on above:Performed By: #### HIV12 #### [facility] [address] [place] [address] Dr. Edward Serranolet mean volume (Bld) [Entitic vol]9.8 fLNormal9.5-13.5The [facility]tering HealthComment on above:Performed By: #### HIV12 #### [facility] [address] [place] [address] Dr. Edward GillPLT238 103/msDtvpzp947-263Nqj [facility]tering HealthComment on above: Performed By: #### HIV12 #### [facility] [address] [place] [address] Dr. Edward GillRBC3.47 106/ulCritically low4.20-5.40The [facility]tering HealthComment on above:Performed By: #### HIV12 #### [facility] [address] [place] [address] Dr. Edward GillWBC9.0 103/ulNormal4.0-11.0The [facility]tering HealthComment on above: Performed By: #### HIV12 #### [facility] [address] [place] [address] Dr. Edward GillFETAL SCREENon 35-05-0102FXBNH SCREENNegativeWestern Reserve HospitalComment on above:Performed By: #### FETSCRN #### [facility] [address] [place] [address] Dr. Edward GillDIRECT COOMBSon 18-02-6105OMSIUP COOMBSNegAdams County HospitalComment on above:Performed By: #### DIRCMB #### [facility] [address] [place] [address] Dr. Edward GillPOINT OF CARE GLUCOSEon 65-30-1173Enjlmfw [Mass/Vol]117 mg/dL Critically qutl80-428Drx [facility] HealthComment on above:Performed By: #### POCGLUC ####[facility] Klxqusr[address] [place], [place] [address]Dr. Edward GillTYPE AND SCREENon 63-80-4168JWBW AND SCREENNegativeWestern Reserve HospitalComment on above:Performed By: #### TNS #### [facility] [address] [place] [address] Dr. Edward GillCBC AUTO DIFFon 93-52-2800ULLQ #0.0 103/ulNormal0.0-0.1The [facility]tering HealthComment on above:Performed By: #### HIV12 #### [facility] [address] [place] [address] Dr. Edward GillBasophils/100 WBC (Bld)0.2 %Normal0.2-2.0The [facility] Comment on above:Performed By: #### HIV12 #### [facility] [address] [place] [address] Dr. Edward Traore #0.0 103/ulNormal0.0-0.7The [facility]tering HealthComment on above: Performed By: #### HIV12 #### [facility] [address] [place] [address] Dr. Edward Calhounosinophils/100 WBC (Bld)0.5 %Critically low0.9-7.0The [facility]tering HealthComment on above:Performed By: #### HIV12 #### [facility] [address] [place] [address] Dr. Edward Calhounrythrocyte distribution width (RBC) [Ratio]16.1 %Critically high 11.0-15.0The [facility] HealthComment on above:Performed By: #### HIV12 #### [facility] [address] [place] [address] Dr. Edward GillHematocrit (Bld) [Volume fraction]32.1 %Critically low36.0-48.0 The [facility]tering HealthComment on above:Performed By: #### HIV12 #### [facility] [address] [place] [address] Dr. Edward GillHemoglobin (Bld) [Mass/Vol]11.7 g/dLCritically low12.0-16.0The [facility]tering HealthComment on above:Performed By: #### HIV12 #### [facility] [address] [place] [address] Dr. Edward Ray #0.04 10e3/ulCritically high0.00-0.03The [facility] Comment on above:Performed By: #### HIV12 #### [facility] [address] [place] [address] Dr. Edward Ray %0.5 %Normal0.0-0.5The [facility]tering HealthComment on above: Performed By: #### HIV12 #### [facility] [address] [place] [address] Dr. Edward Velásquez #2.4 103/ulNormal1.2-3.8The [facility] HealthComment on above:Performed By: #### HIV12 #### [facility] [address] [place] [address] Dr. Edward Ronmphocytes/100 WBC (Bld)27.2 %Bvdnec60.5-60.0The [facility] HealthComment on above:Performed By: #### HIV12 #### [facility] [address] [place] [address] Dr. Edward SimmonsUAL DIFF REQNONormalThe [facility] HealthComment on above: Performed By: #### HIV12 #### [facility] [address] [place] [address] Dr. Edward De Leon (RBC) [Entitic mass]30.0 voSnmklq33.7-34.0The [facility] HealthComment on above:Performed By: #### HIV12 #### [facility] [address] [place] [address] Dr. Edward June (RBC) [Mass/Vol]36.4 g/dLCritically high29.9-35.2The [facility] HealthComment on above:Performed By: #### HIV12 #### [facility] [address] [place] [address] Dr. Edward Desai (RBC) [Entitic vol]82.3 aODtxtuh32.0-99.0The [facility] HealthComment on above:Performed By: #### HIV12 #### [facility] [address] [place] [address] Dr. Edward Rosas #0.7 103/ulNormal0.3-0.8The [facility] HealthComment on above:Performed By: #### HIV12 #### [facility] [address] [place] [address] Dr. Edward Ignacioocytes/100 WBC (Bld)7.7 %Normal1.7-12.0The [facility] Comment on above:Performed By: #### HIV12 #### [facility] [address] [place] [address] Dr. Yilan ChangNEUT #5.5 103/ulNormal1.4-6.5The [facility] HealthComment on above:Performed By: #### HIV12 #### [facility] [address] [place] [address] Dr. Edward Moralesutrophils/100 WBC (Bld)63.9 %Minoli56.0-75.0The [facility] HealthComment on above:Performed By: #### HIV12 #### [facility] [address] [place] [address] Dr. Edward GillPlatelet mean volume (Bld) [Entitic vol]10.0 fLNormal9.5-13.5The [facility] HealthComment on above:Performed By: #### HIV12 #### [facility] [address] [place] [address] Dr. Edward GillPLT274 103/xaEwwrcd529-379Cfg [facility] HealthComment on above: Performed By: #### HIV12 #### [facility] [address] [place] [address] Dr. Edward GillRBC3.90 106/ulCritically low4.20-5.40The [facility] HealthComment on above:Performed By: #### HIV12 #### [facility] [address] [place] [address] Dr. Edward GillWBC8.7 103/ulNormal4.0-11.0The [facility]tering HealthComment on above: Performed By: #### HIV12 #### [facility] [address] [place] [address] Dr. Edward GillCovid-19 PCR ([facility])on 13-13-2733WUKG-CoV-2 (COVID-19) RNA LELO+probe Ql (Unsp spec)Not detectedNormalNOT DETECTEDThe [facility] Comment on above:Result Comment: When diagnostic testing [...] for this test is supported by the [place] of Health and Human Service's declaration that [...] longer be used).Performed By: #### HIV12 #### [facility] [address] [address] [address] Edward GillDRUG SCREEN RAPID (URINE)on 13-67-4668HAZWvankywvBhtbzxFQOHQSHY Mercy HospitalComment on above:Performed By: #### DRUGRPD ####[facility] [address] [address]Dr. Edward GillBAR NegativeNormalNEGATIVEBluffton Hospital HospitalComment on above:Performed By: #### DRUGRPD ####[facility] [address] [address]Dr. Edward GillBUPNegativeNormalNEGATIVEMercy HospitalComment on above:Performed By: #### DRUGRPD ####[facility] [address] [address]Dr. Edward GillBZONegativeNormalNEGATIVEMercy HospitalComment on above:Performed By: #### DRUGRPD ####[facility] [address] [address]Dr. Edward GillCOCNegative NormalNEGATIVEMercy HospitalComment on above:Performed By: #### DRUGRPD ####[facility] Xujsjmgbsv[address] [place], [place] [address]Dr. Edward GillCUT-OFFSSEE BELOWWestern Reserve HospitalComment on above:Result Comment: AMP (Amphetamine): 500ng/mL, BAR (Barbituates): 200 ng/mL, BZO (Benzodiazepines): 150 ng/mL, BUP (Buprenorphine): 10 ng/mL, INDIA (Cocaine): 150 ng/mL, mAMP (Methamphetamine): 500 ng/mL, MTD (Methadone): 200 ng/mL, OPI (Opiates): 100 ng/mL, OXY (Oxycodone): 100 ng/mL, PCP (Phencyclidine): 25 ng/mL, PPX (Propoxyphene): 300 ng/mL, THC (Cannabinoids): 50 ng/mL, TCA (Trycyclic Antidepressants): 300 ng/mLPerformed By: #### DRUGRPD ####[facility] Nedgktbqhp[address] [place], [place] [address]Dr. Edward ChangDRUG CUT HEADERDRUG CLASS TEST SYSTEM CUT-OFF CONCENTRATIONS ARE FOLLOWS:NormalThe Montgomeryville HospitalComment on above:Performed By: #### DRUGRPD ####[facility] Zgallxpshz[address] [place], [place] [address]Dr. Edward ChangmAMP NegativeNormalNEGATIVEBluffton Hospital HospitalComment on above:Performed By: #### DRUGRPD ####[facility] Lfvcnkszaw[address] [place], [place] [address]Dr. Yilan ChangMTDNegativeNormalNEGATIVEBluffton Hospital HospitalComment on above:Performed By: #### DRUGRPD ####[facility] [address]cnwnqwcm[address] [place], [place] [address]Dr. Yilan ChangOPINegativeNormalNEGATIVEBluffton Hospital HospitalComment on above:Performed By: #### DRUGRPD ####[facility] Kqlwo[address] [place], [place] [address]Dr. Yilan ChangOXYNegative NormalNEGATIVEBluffton Hospital HospitalComment on above:Performed By: #### DRUGRPD ####[facility] [address]xp[address]uj[address] [place], [place] [address]Dr. Yilan ChangPCPNegativeNormalNEGATIVEBluffton Hospital HospitalComment on above: Performed By: #### DRUGRPD ####[facility] V[address]ion[address]hev[address] [place], [place] [address]Dr. Yilan ChangPPXNegativeNormalNEGATIVEBluffton Hospital HospitalComment on above:Performed By: #### DRUGRPD ####[facility] [address] [id number]. Edward GillTCANegative NormalNEGATIVEMercy HospitalComment on above:Performed By: #### DRUGRPD ####[facility] [address] [address]Dr. Edward GillTHCNegativeNormalNEGATIVEMercy HospitalComment on above: Performed By: #### DRUGRPD ####[facility] [address] [address]Dr. Edward Sherwood PREG BIOPHY W NON STRESSon 30-52-3326TF PREG BIOPHY W NON STRESSEXAMINATION: US PREG [...] Electronically authenticated by: HUMERA KIM Date: 2022-05-06 19:05[facility] PREG BIOPHY W NON STRESSon 61-36-9089JC PREG BIOPHY W NON STRESSEXAMINATION: US PREG [...] Electronically authenticated by: ANGIE GALDAMEZ Date: 2022-05-01 16:16[facility] B STREP CULTUREon 04-23-2022. agalactiae [...] Tetracycline >=16 R F Vancomycin =0.5 S FNormalMercy HospitalComment on above:Performed By: #### GBSCX ####[facility] [address] [place], [place] [address]Xv. Edward GillUS PREG BIOPHY W NON STRESSon 85-87-7790KM PREG BIOPHY W NON STRESSEXAMINATION: US PREG [...] Electronically authenticated by: HUMERA KIM Date: 2022-04-17 17:[address] [place] [address] PREG GROWTHon 99-15-4258YH PREG GROWTHEXAMINATION: US PREG GROWTH HISTORY: Gestational [...] Electronically authenticated by: HUMERA KIM Date: 2022-04-17 16:49[facility] PREG BIOPHY W NON STRESSon 38-22-8729XJ PREG BIOPHY W NON STRESSEXAMINATION: US PREG [...] Electronically authenticated by: HUMERA KIM Date: 2022-04-12 08:56Western Reserve HospitalGLUCOSE, BLOOD (POC)on 24-01-5578Iaqeqan [Mass/Vol]106 mg/dL Pedbugaq77 - 99 mg/dLKettering Health [facility] PREG BIOPHY W NON STRESSon 38-27-5642CO PREG BIOPHY W NON STRESSEXAMINATION: US PREG [...] Electronically authenticated by: HUMERA KIM Date: 2022-04-01 16:08[facility] PREG BIOPHY W NON STRESSon 04-70-5122TX PREG BIOPHY W NON STRESSEXAMINATION: US PREG [...] Electronically authenticated by: HUMERA KIM Date: 2022-03-27 08:54NoSt. Francis HospitalUS PREG GROWTHon 18-27-4068HE PREG GROWTHEXAMINATION: US PREG GROWTH HISTORY: Maternal [...] by: HUMERA KIM Date: 2022-03-17 06:04[facility] Reserve HospitalTSHon 48-27-2072NWB3.586 uIU/mLNormal0.358-3.740The [facility]tering HealthComment on above:Performed By: #### HIV12 #### [facility] [address] [place] [address] Dr. Edward GillTYPE AND SCREENon 27-74-4889HNTG AND SCREENNegativeWestern Reserve HospitalComment on above:Performed By: #### TNS #### [facility] [address] [place] [address] Dr. Edward GillPAP ACOG PANEL 2: 30 to 65on 02-21-2022..NormalThe [facility] HealthComment on above:Result Comment: Performed at: WBPerformed By: #### [id number] ####[facility] Nzojlawhmr[address] [place], [place] [address]DrLazara Koenig Gdln ACOG Kbccysq91-00LjstewPitUniversity Hospitals Portage Medical Center on above:Performed By: #### [id number] ####[facility] Qahuoystvg[address] [place], [place] [address]Dr. Edward GillDIAGNOSIS:CommentUK Healthcare on above:Result Comment: NEGATIVE FOR INTRAEPITHELIAL LESION OR MALIGNANCY. Performed at: WBPerformed By: #### [id number] ####[facility] Bpuqwdkfro[address] [place], [place] [address]Dr. Edward GillHPV AptimaNegativeNormal NegativeThe [facility] on above:Result Comment: This nucleic acid amplification test detects fourteen high-risk HPV types (16,18,31,33,35,39,45,51,52,56,58,59,66,68) without differentiation. Performed at: =GPerformed By: #### [id number] ####[facility] Sutjfpfxty[address] [place], [place] [address]Dr. Edward GillMethodology:CommentUK Healthcare on above:Result Comment: This liquid based ThinPrep(R) pap test was screened with the use of an image guided system. Performed at: WBPerformed By: #### [id number] ####[facility] Idlopuiifk[address] [place], [place] [address]Dr. Edward GillNote:CommentUK Healthcare on above:Result Comment: The Pap smear is a screening test designed to aid in the detection of premalignant and malignant conditions of the uterine cervix. It is not a diagnostic procedure and should not be used as the sole means of detecting cervical cancer. Both false-positive and false-negative reports do occur. . Performed at: WBPerformed By: #### [id number] ####[facility] Bxbinaiiel[address] [place], [place] [address]Dr. Edward ChangPerformed by:CommentUK Healthcare on above:Result Comment: Zenaida Diop, Instructional Developer (ASCP) Performed at: WBPerformed By: #### [id number] ####[facility] Cqdukasdms[address] [place], [place] [address]Dr. Edward GillSpecimen adequacy:Comment NormalMercy HospitalComment on above:Result Comment: Satisfactory for evaluation. No endocervical component is identified. Performed at: WBPerformed By: #### [id number] ####[facility] Bcopcvtooc[address] [place], [place] [address]Dr. Edward GillCHLAMYDIA/GONOCOCCUS LELO (SWAB/URINE/PAPon 84-45-3351Wuoagqdkh trachomatis, NAANegativeNormalNegativeMercy HospitalComment on above:Performed By: #### CT/NGNA ####[facility] Auozffebbi[address] [place], [place] [address]Dr. Edward Gill Neisseria gonorrhoeae, NAANegativeNormalNegativeMercy HospitalComment on above:Performed By: #### CT/NGNA ####[facility] Uaqgitsgni[address] [place], [place] [address]Dr. Edward GillVAGINITIS/VAGINOSIS DNA PROBEon 28-67-5118Xtwdqmw speciesNegativeNormalNegativeMercy HospitalComment on above:Performed By: #### VAGINT ####[facility] Okeomlsgvl[address] [place], [place] [address]Dr. Edward GillGardnerella vaginalisNegativeNormal NegativeThe [facility] HealthComment on above:Performed By: #### VAGINT ####[facility] Ntpntsjyqk[address] [place], [place] [address]Dr. Edward GillTrichomonas vaginalisNegativeNormalNegativeMercy Hospital Comment on above:Performed By: #### VAGINT ####[facility] Sfqjywqwiy[address] [place], [place] [address]Dr. Edward GillTSHon 95-07-3405EFH5.536 uIU/mLNormal0.358-3.740The [facility] HealthComment on above:Performed By: #### TSH ####[facility] [address] [place], [place] [address]Tb. Edward JairoGLUCOSE - 1HRon 67-53-1727Dhwgxvm [Mass/Vol]160 mg/dLCritically high 74-106Mercy HospitalComment on above:Performed By: #### GLU1HR ####[facility] [address] [address]DrLazara Edward SepulvedaHon 21-19-2736CLG1.899 uIU/mLNormal0.358-3.740[facility] Comment on above:Performed By: #### HIV12 #### [facility] [address] [address] [address] Edward Garcia, [facility] 56-55-6867Pqhszjlvfu byUltSt. Charles Medical Center – MadrasComment on above:Performed By: #### AAFPM #### [address] [address] [employer]re[employer] Projection Topographer: Pancho Cano MD [address] [address] Stereoptic Projection Topographer: Yosvany ArriagaSelect Medical Specialty Hospital - Boardman, IncComment on above:Result Comment: Results for Estimated Due Date: 05 13 22Performed By: #### AAFPM #### [address] [address] Stereoptic Projection Topographer: Pancho Cano MD [facility] [address] [place] [address] Stereoptic Projection Topographer: Danelle ArriagaGalion Community HospitalComment on above:Performed By: #### AAFPM #### [address] [address] Stereoptic Projection Topographer: Pancho Cano MD [facility] [address] [place], [place] [phone] Ste[employer] Projection Topographer: Zhang Bledsoe MDGestat Age (exact)15 wks, 2 daysNoRiverside Methodist HospitalComment on above:Performed By: #### AAFPM #### [facility] [address] [place] [address] Stereoptic Projection Topographer: Pancho Cano MD [address] [phone] Ste[employer] Projection Topographer: Zhang Bledsoe MDIns Req Matern DiabRegency Hospital Cleveland EastComment on above:Performed By: #### AAFPM #### [facility] [address] [address] Stereoptic Projection Topographer: Pancho Cano MD [address] [address] Stereoptic Projection Topographer: Zhang Bledsoe MDInterpretationScreen Fisher-Titus Medical CenterComment on above:Result Comment: (NOTE) INTERPRETATION: SCREEN NEGATIVE for open spina bifida Neural Tube Defects (NTD) Negative Pre-Test Post-Test Cutoff Neural Tube Defects Risks 1:1030 1:2690 1:250 Comments: The risk of an open neural tube defect is less than the screening cut-off. This test was developed and its performance characteristics determined by [employer]. It has not been cleared or approved by the [place] Food and Drug Administration. This test was performed in a CLIA certified laboratory and is intended for clinical purposes.Performed By: #### AAFPM #### [facility] [address] [address] [employer] Projection Topographer: Pancho Cano MD [address] [phone] [employer] Topographer: Osmar Arriagaternal Age at Del36.6 yrSelect Medical Specialty Hospital - Southeast OhioComment on above:Performed By: #### AAFPM #### [facility] [address] [address] Stereoptic Projection Topographer: Pancho Cano MD [address] [phone] [employer] Pro[employer] Topographer: Osmar Arriagahollywood community hospital of [facility] nuys RaceNonblackNoRiverside Methodist HospitalComment on above:Performed By: #### AAFPM #### [facility] [address] [place] [address] Stereoptic Projection Topographer: Pancho Cano MD [facility] [address] [place] [address] [employer]re[employer] Projection Topographer: Osmar Arriagahollywood community hospital of van nuys Nzkfdl983.0 lbs.NormalWhite HospitalComment on above:Performed By: #### AAFPM #### [facility] [address] [place] [address] Stereoptic Projection Topographer: Pancho Cano MD [facility] [address] [place] [address] Stereoptic Projection Topographer: BAKARI Arriaga for AFP1.52NormMercy HealthComment on above:Performed By: #### AAFPM #### [facility] [address] [place] [address] Stereoptic Projection Topographer: Pancho Cano MD [address] [address] Stereoptic Projection Topographer: Zhang Bledsoe MDNumber of FetusesSingletonNoRiverside Methodist HospitalComment on above:Performed By: #### AAFPM #### [facility] [address] [address] Stereoptic Projection Topographer: Pancho Cano MD [facility] [address] [place] [address] [employer]reoptic Projection Topographer: Smith Arriaga's AFP35 ng/mLNormalWhite HospitalComment on above:Performed By: #### AAFPM #### [facility] [address] [place] [address] Stereoptic Projection Topographer: Pancho Cano MD [facility] [address] [place] [address] Stereoptic Projection Topographer: NIKITA ArriagaMemorial Health System [facility] Comment on above:Performed By: #### AAFPM #### [address] [address] Stereoptic Projection Topographer: Pancho Cano MD [address] [phone] Stereoptic Projection Topographer: Azucena ArriagaKettering Health MiamisburgComment on above:Result Comment: (NOTE) Initial sample Performed by [employer], [address] [place] [phone] www.Robin, Yayo Moncada MD, PHD, Lab. DirectorPerformed By: #### AAFPM #### [address] [address] Stereoptic Projection Topographer: Pancho Cano MD [address] [phone] Stereoptic Projection Topographer: Zhang Bledsoe MDAWestern Maryland Hospital Center 63-41-1658Ufr[address] [place], [place] [address]Comment on above:Performed By: #### AAFPM #### [address] [address] Stereoptic Projection Topographer: Pancho Cano MD [address] [phone] Stereoptic Projection Topographer: SHIVA ArriagaAshtabula County Medical Center Comment on above:Performed By: #### AAFPM #### [facility] [address] [address] Stereoptic Projection Topographer: Pancho Cano MD [address] [phone] Stereoptic Projection Topographer: Zhang Bledsoe [facility] Comment on above:Performed By: #### AAFPM #### [address] [address] Stereoptic Projection Topographer: Pancho Cano MD [facility] [address] [place] [address] Stereoptic Projection Topographer: SHIVA Arriagaonojeanine EggINFORMATION NOT PROVIDEDSelect Medical Specialty Hospital - Southeast OhioComment on above:Performed By: #### AAFPM #### [facility] [address] [place] [address] Stereoptic Projection Topographer: Pancho Cano MD [facility] [address] [place] [address] Stereoptic Projection Topographer: Zhang Bledsoe MDEstimbanner desert medical center Due [id number] Medical Specialty Hospital - Southeast OhioComment on above:Performed By: #### AAFPM #### [facility] [address] [address] Stereoptic Projection Topographer: Pancho Cano MD [facility] [address] [place] [address] Stereoptic Projection Topographer: Zhang Bledsoe MDBristol County Tuberculosis Hospital HistoryNegativeSelect Medical Specialty Hospital - Southeast OhioComment on above:Performed By: #### AAFPM #### [facility] [address] [place] [address] Stereoptic Projection Topographer: Pancho Cano MD [facility] [address] [place] [address] Stereoptic Projection Topographer: Zhang Bledsoe MDIn Vitro FertalizatINFORMATION NOT PROVIDEDMercy HospitalComment on above:Performed By: #### AAFPM #### [facility] [address] [place] [address] Stereoptic Projection Topographer: Pancho Cano MD [facility] [address] [place] [address] Stereoptic Projection Topographer: Zhang Bledsoe MDKAISER SUNNYSIDE [facility]ICAL [facility] [id number] Medical Specialty Hospital - Southeast OhioComment on above:Performed By: #### AAFPM #### [facility] [address] [place] [address] Stereoptic Projection Topographer: Pancho Cano MD [facility] [address] [place] [address] Stereoptic Projection Topographer: Zhang Bledsoe MDMaternal [id number] Medical Specialty Hospital - Southeast OhioComment on above:Performed By: #### AAFPM #### [facility] [address] [place] [address] Stereoptic Projection Topographer: Pancho Cano MD [facility] [address] [place] [address] Stereoptic Projection Topographer: Osmar Arriagaternal [id number] Medical Specialty Hospital - Southeast OhioComment on above:Performed By: #### AAFPM #### [facility] [address] [place] [address] Stereoptic Projection Topographer: Pancho Cano MD [facility] [address] [place] [address] Stereoptic Projection Topographer: BAKARI Arriagaonochorionic TwinsDayton Children's HospitalComment on above:Performed By: #### AAFPM #### [facility] [address] [place] [address] Stereoptic Projection Topographer: Pancho Cano MD [facility] [address] [place] [address] Stereoptic Projection Topographer: Zhang Bledsoe [facility] SUM[facility] COUNTYatient Weight UnitsLBSSelect Medical Specialty Hospital - Southeast OhioComment on above:Performed By: #### AAFPM #### [facility] [address] [place] [address] Stereoptic Projection Topographer: Pancho Cano MD [facility] [address] [place] [address] Stereoptic Projection Topographer: LUIS Arriagaace (Maternal)WHITESelect Medical Specialty Hospital - Southeast OhioComment on above:Performed By: #### AAFPM #### [facility] [address] [place] [address] Stereoptic Projection Topographer: Pancho Cano MD [facility] [address] [place] [address] Stereoptic Projection Topographer: Jay Arriaga SpecimenINFORMATION NOT [facility] Healthcare SystemComment on above:Performed By: #### AAFPM #### [facility] [address] [place] [address] Stereoptic Projection Topographer: Pancho Cano MD [facility] [address] [place] [address] Stereoptic Projection Topographer: Zhang Bledsoe MDValproic/CarbamazepINFORMATION NOT [facility] Healthcare SystemComment on above:Performed By: #### AAFPM #### [facility] [address] [address] Stereoptic Projection Topographer: Pancho Cano MD [facility] [address] [place] [address] Stereoptic Projection Topographer: JIMENEZ Arriaga Single Marker Scrn, Maternal, Serumon 64-74-5696FncLikbgyUPMC Western Psychiatric HospitalCarrier Study Non-ProMedicaon 95-00-0527DwrWgyqbo[address] [place] [address] MISCELLANEOUS TESTINGon 07-89-3307Uwoa Out ReportFWD TO [facility] [address] [place], [place] [address]Test NameNATERA NAVAL MEDICAL CENTER PORTSMOUTHMiscellaneouson 62-28-7034Upzv Out ReportFWD TO [facility] [address] [place], [place] [address]Comment on above:Performed By: #### CMIS #### [facility] [address] [place] [address] Stereoptic Projection Topographer: Pancho Cano MDTest [facility] Pike Medical CenterComment on above:Performed By: #### CMIS #### [facility] [address] [place] [address] Stereoptic Projection Topographer: RAJ Choi B SURFACE ANTIGEN SCREENon 45-25-6460FOlPn ScreenNegativeNormalNegativeThe [facility] on above:Performed By: #### HIV12 #### [facility] [address] [place] [address] Dr. Edward FranklinPATITIS C VIRUS AB W/ REFLEX QUANTon 33-57-8016OTQ AB<0.1Normal 0.0-0.9The [facility] on above:Performed By: #### HCVPCRR ####[facility] [address] [address]DrLazara GillInterpretation:CommentNormalThe [facility] on above: Result Comment: Negative Not infected with HCV, unless recent infection is suspected or other evidence exists to indicate HCV infection.Performed By: #### HCVPCRR ####[facility] [address] [address]DrLazara GillHIV 1 AND 2 WITH REFLEXon 17-08-3874XJS Screen 4th Generation wRfx Non-ReactiveNormalNon ReactiveThe [facility] on above:Result Comment: HIV Negative HIV-1/HIV-2 antibodies and HIV-1 p24 antigen were NOT detected. There is no laboratory evidence of HIV infection.Performed By: #### HIV12 #### [facility] [address] [place] [address] Dr. Edward GillRPJeanine QUANTon 90-72-8696Cwurq Plasma Reagin, QuantNon-Reactive NormalNonRea<1:1The [facility] on above:Result Comment: Please Note: This test does not meet current guidelines for screening and diagnosis of syphilis. This test is intended for following treatment response in patients being treated for syphilis infection. To screen for syphilis infection, a reflex cascade that includes both RPR and a treponema-specific assay should be utilized, such as Treponema pallidum (Syphilis) Screening Eddy (196333) or Rapid Plasma Reagin (RPR) Test With Reflex to Quantitative RPR and Confirmatory Treponema pallidum Antibodies (526683).Performed By: #### RPRQ ####[facility] [address] [address]Dr. Edward OspinaBELLA AB IGG on 01-27-3251Dparjah Antibodies, IgG1.02 indexNormalImmune >0.99The [facility] HealthComment on above:Result Comment: Non-immune <0.90 Equivocal 0.90 - 0.99 Immune >0.99Performed By: #### RUBIGG ####[facility] [address] [address]Dr. Edward AlfaroC AUTO DIFFon [id number] # 0.0 103/ulNormal0.0-0.1The [facility] HealthComment on above:Performed By: #### HIV12 #### [facility] [address] [place] [address] Dr. Edward GillBasophils/100 WBC (Bld)0.3 %Normal0.2-2.0[facility] Comment on above:Performed By: #### HIV12 #### [facility] [address] [place] [address] Dr. Edward Traore #0.1 103/ulNormal0.0-0.7The [facility] HealthComment on above: Performed By: #### HIV12 #### [facility] [address] [place] [address] Dr. Edward Calhounosinophils/100 WBC (Bld)0.6 %Critically low0.9-7.0The [facility] HealthComment on above:Performed By: #### HIV12 #### [facility] [address] [place] [address] Dr. Edward Calhounrythrocyte distribution width (RBC) [Ratio]14.1 %Hmtkaq91.0-15.0 The [facility] HealthComment on above:Performed By: #### HIV12 #### [facility] [address] [place] [address] Dr. Edward GillHematocrit (Bld) [Volume fraction]36.2 %Mbyfgu48.0-48.0The [facility] HealthComment on above:Performed By: #### HIV12 #### [facility] [address] [place] [address] Dr. Edward GillHemoglobin (Bld) [Mass/Vol]12.5 g/lJDyrliz59.0-16.0The [facility] HealthComment on above:Performed By: #### HIV12 #### [facility] [address] [place] [address] Dr. Edward Ray #0.05 10e3/ulCritically high0.00-0.03The [facility] Comment on above:Performed By: #### HIV12 #### [facility] [address] [place] [address] Dr. Edward Ray %0.4 %Normal0.0-0.5The [facility] HealthComment on above: Performed By: #### HIV12 #### [facility] [address] [place] [address] Dr. Edward Velásquez #2.7 103/ulNormal1.2-3.8The [facility] HealthComment on above:Performed By: #### HIV12 #### [facility] [address] [place] [address] Dr. Edward Alvarezhocytes/100 WBC (Bld)23.2 %Uarwsn42.5-60.0The [facility] HealthComment on above:Performed By: #### HIV12 #### [facility] [address] [place] [address] Dr. Edward SimmonsUAL DIFF REQNONormalThe [facility] HealthComment on above: Performed By: #### HIV12 #### [facility] [address] [place] [address] Dr. Edward June (RBC) [Entitic mass]30.6 chFjuvvt30.7-34.0The [facility] HealthComment on above:Performed By: #### HIV12 #### [facility] [address] [place] [address] Dr. Edward June (RBC) [Mass/Vol]34.5 g/sUHkaarc85.9-35.2The Montgomeryville HospitalComment on above:Performed By: #### HIV12 #### [facility] [address] [address] [address] Edward JuneV (RBC) [Entitic vol]88.7 hNCbqgbd92.0-99.0The [facility] HealthComment on above:Performed By: #### HIV12 #### [facility] [address] [place] [address] Dr. Edward Rosas #0.7 103/ulNormal0.3-0.8The [facility] HealthComment on above:Performed By: #### HIV12 #### [facility] [address] [place] [address] Dr. Edward Ignacioocytes/100 WBC (Bld)5.8 %Normal1.7-12.0The [facility] Comment on above:Performed By: #### HIV12 #### [facility] [address] [place] [address] Dr. Edward Guevara #8.0 103/ulCritically high1.4-6.5The [facility] Comment on above:Performed By: #### HIV12 #### [facility] [address] [place] [address] Dr. Edward Moralesutrophils/100 WBC (Bld)69.7 %Spcymf80.0-75.0The [facility] HealthComment on above:Performed By: #### HIV12 #### [facility] [address] [place] [address] Dr. Edward Serranolet mean volume (Bld) [Entitic vol]9.3 fLCritically low 9.5-13.5ThPremier Health Upper Valley Medical CenterComment on above:Performed By: #### HIV12 #### [facility] [address] [place] [address] Dr. Edward GillPLT338 103/btMpmjnx678-207Ebx [facility] HealthComment on above: Performed By: #### HIV12 #### [facility] [address] [place] [address] Dr. Edward GillRBC4.08 106/ulCritically low4.20-5.40[facility] on above:Performed By: #### HIV12 #### [facility] [address] [address] [address] Edward SaulBC11.4 103/ulCritically high4.0-11.0The [facility] Hospitalment on above:Performed By: #### HIV12 #### [facility] [address] [place] [address] Dr. Edward GillCULTJEYSON URINEon 25-34-0182CZUQBND URINECulture Observations: LIGHT GROWTH OF MIXED GENITAL MARTHA. NO POTENTIAL PATHOGENS SEEN.NormalThe St. Elizabeth Hospitalment on above:Performed By: #### URCX #### [facility] [address] [place] [address] Dr. Edward GillGLYCOHEMOGLOBIN A1Con 33-09-1284HPH RECOMMENDATIONSEE BELOWNormal The [facility] HealthComup [facility] on above:Result Comment: ADA RECOMMENDED LIMIT 4.0 - 6.0 ADA THERAPEUTIC TARGET < 7.0 ACTION SUGGESTED > 7.0Performed By: #### A1C #### [facility] [address] [place] [address] Dr. Edward GillGlucose [Mass/Vol]117 mg/dLNormalThe [facility] HealthComup health system on above:Performed By: #### A1C #### [facility] [address] [place] [address] Dr. Edward GillHbA1c (Bld) [Mass fraction]5.7 %Normal4.5-6.2The [facility] on above:Performed By: #### A1C #### [facility] [address] [place] [address] Dr. Edward Nair BOX TEST PT SEND OUTon [id number] TO REF LAB10/25/2021 [facility] on above:Performed By: #### HIV12 #### [facility] [address] [place] [address] Dr. Edward GillTSHodru 69-08-2511JWY7.700 uIU/mLNormal0.358-3.740The Piyush HospitalComment on above:Performed By: #### TSH ####[facility] [address] [id number] GillTYPE AND SCREEN on 32-17-1619XWRH AND SCREENNegativeUK Healthcare on above: Performed By: #### TNS ####[facility] [address] [address]Dr.Edward GillUS PREG TVon [id number] PREG TV EXAMINATION: US PREG TV HISTORY: [...] Electronically authenticated by: HUMERA KIM Date: 2021-09-23 10:27[facility] HospitalPREG QUANT HCGon 87-19-7422RDV AWIXL0563 mIU/mLNormalMercy HospitalComup health system on above:Performed By: #### HIV12 #### [facility] [address] [address] [address] Edward GillHCG RANGESEE BELOWWestern Reserve HospitalComment on above: Result Comment: 5-50 0-1 WEEK 40-300 1-2 WEEKS 100-1,000 2-3 WEEKS 500-6,000 3-4 WEEKS 5,000-200,000 1-2 MONTHS 10,000-100,000 2-3 MONTHS 3,000-50,000 2ND TRIMESTER 1,000-50,000 3RD TRIMESTERPerformed By: #### HIV12 #### [facility] [address] [address] [address] Edward GillCHEMISTRYOrdered By: SYSTEM SYSTEM on 83-98-2770Jszeo gap [Moles/Vol]15 mmol/LNormal6 - 16 mEq/LFTMC RemisolCalcium [Mass/Vol]9.5 mg/dL Normal8.9 - 11.1 mg/dLFT RemisolChloride [Moles/Vol]102 mmol/KNtbkyv604 - 111 mmol/LFTMC RemisolCO2 [Moles/Vol]22 mmol/OBlobqy64 - 31 mmol/LFTMC Remisol Creatinine [Mass/Vol]0.9 mg/dLNormal0.5 - 1.3 mg/dLFT RemisolGFR/1.73 sq M.predicted among blacks MDRD (S/P/Bld) [Vol rate/Area]mL/min/1.73 t4Ilzgxy >=59mL/min/1.73 m2[facility] Chem SGFR/1.73 sq M.predicted among non-blacks MDRD (S/P/Bld) [Vol rate/Area]mL/min/1.73 t9Hvvlsm>=59mL/min/1.73 m2[facility] Chem S Glucose [Mass/Vol]85 mg/nQLvtclq66 - 199 mg/dLFT RemisolPotassium [Moles/Vol] 3.9 mmol/LNormal3.5 - 5.3 mmol/LFTMC RemisolSodium [Moles/Vol]135 mmol/LNormal 135 - 145 mmol/LFTMC RemisolUrea nitrogen [Mass/Vol]6 mg/dLNormal5 - 21 mg/dL [facility] RemisolUrea nitrogen/Creatinine [Mass ratio]7 mg/mgLow10 - 20FT Remisol HEMATOLOGYOrdered By: SYSTEM SYSTEM on 23-06-3691Sgudszmhg/100 WBC (Bld)0.5 % Normal0.0 - 2.0 %[facility] HemeAutoSSBasophils/Leukocytes Auto (Bld) [Pure # fraction]0.0 E9/LNormal0.0 - 0.2 E9/LFTMC HemeAutoSSEosinophils/100 WBC (Bld)0.6 %Normal0.0 - 8.0 %[facility] HemeAutoSSEosinophils/Leukocytes Auto (Bld) [Pure # fraction]0.1 E9/LNormal0.0 - 0.5 E9/LFTMC HemeAutoSSLymphocytes/100 WBC (Bld) 36.8 %Qkbjdv71.0 - 50.0 %[facility] HemeAutoSSLymphocytes/Leukocytes Auto (Bld) [Pure # fraction]2.9 E9/LNormal1.0 - 4.0 E9/LFTMC HemeAutoSSMonocytes/100 WBC (Bld)8.7 %Normal4.0 - 14.0 %[facility] HemeAutoSSMonocytes/Leukocytes Auto (Bld) [Pure # fraction]0.7 E9/LNormal0.2 - 1.0 E9/LFTMC HemeAutoSSNeutrophils/100 WBC (Bld) 53.4 %Uykymq91.0 - 75.0 %[facility] HemeAutoSSNeutrophils/Leukocytes Auto (Bld) [Pure # fraction]4.2 E9/LNormal2.0 - 7.5 E9/LFTMC HemeAutoSSHEMATOLOGYOrdered By: Isha Yates on 93-96-9372Oqoyeivhszc distribution width (RBC) [Ratio]14.6 %High10.9 - 14.2 %[facility] HemeAutoSSHematocrit (Bld) [Volume fraction]36.4 %Normal 34.0 - 46.0 %[facility] HemeAutoSSHemoglobin (Bld) [Mass/Vol]12.6 g/xKCaaaah79.0 - 16.0 gm/dLFTMC HemeAutoSSMCH (RBC) [Entitic mass]29.9 abAluqyd11.0 - 34.0 pgFTMC HemeAutoSSMCHC (RBC) [Mass/Vol]34.6 g/xGCnfsnv07.4 - 36.0 gm/dLFTMC HemeAutoSS MCV (RBC) [Entitic vol]86.6 uUGlelmu71.0 - 100.0 fLFTMC HemeAutoSSPlatelet mean volume (Bld) [Entitic vol]8.2 fLNormal6.4 - 10.8 fLFTMC HemeAutoSSPlatelets (Bld) [#/Vol]367.0 E9/ETdkjyk210.0 - 500.0 E9/LFTMC HemeAutoSSRBC (Bld) [#/Vol] 4.2 E12/LLow4.3 - 5.9 E12/LFTMC HemeAutoSSWBC corrected for nucl RBC Auto (Bld) [#/Vol]7.9 E9/LNormal4.0 - 11.0 E9/LFTMC HemeAutoSSPREG QUANT HCGon 08-29-2021 HCG MDWCR927 mIU/mLNormalMercy HospitalComment on above:Performed By: #### PREGQNT ####[facility] [address] [address]Dr. Edward Lim [facility] DaytonComment on above:Result Comment: 5-50 0-1 WEEK 40-300 1-2 WEEKS 100-1,000 2-3 WEEKS 500- 6,000 3-4 WEEKS 5,000-200,000 1-2 MONTHS 10,000-100,000 2-3 MONTHS 3,000-50,000 2ND TRIMESTER 1,000-50,000 3RD TRIMESTERPerformed By: #### PREGQNT ####[facility] [address] [place], [place] [address]Dr. Edward GillPREWily QUANT HCGon 84-62-6181ROM QUANT99 mIU/mLNMount Carmel Health SystemComment on above:Performed By: #### HIV12 #### [facility] [address] [address] [address] Edward Lim [facility] on above: Result Comment: 5-50 0-1 WEEK 40-300 1-2 WEEKS 100-1,000 2-3 WEEKS 500-6,000 3-4 WEEKS 5,000-200,000 1-2 MONTHS 10,000-100,000 2-3 MONTHS 3,000-50,000 2ND TRIMESTER 1,000-50,000 3RD TRIMESTERPerformed By: #### HIV12 #### [facility] [address] [address] [address] Edward Cross QUANT HCGon 04-21-0112VFM QUANT37 mIU/mLNMount Carmel Health SystemComup health system on above:Performed By: #### PREGQNT ####[facility] [address] [place], [place] [address]Dr. Edward Lim RANGESEE BELOWNormalThe Montgomeryville HospitalComment on above:Result Comment: 5-50 0-1 WEEK 40-300 1-2 WEEKS 100-1,000 2-3 WEEKS 500-6,000 3-4 WEEKS 5,000-200,000 1-2 MONTHS 10,000-100,000 2-3 MONTHS 3,000-50,000 2ND TRIMESTER 1,000-50,000 3RD TRIMESTERPerformed By: #### PREGQNT ####[facility] [address] [address]DrLazara Leon ChangCHEMISTRYOrdered By: SYSTEM SYSTEM on 53-03-1580Hhxdzjb [Mass/Vol]4.5 g/dLNormal3.3 - 5.0 gm/dLFTMC Remisol Albumin/Globulin [Mass ratio]1.2 {ratio}Normal1.1 - 2.2FT[facility] RemisolALP [Catalytic activity/Vol]53 [iU]/tUnukyc28 - 98 Int._Unit/LFTMC RemisolALT No additional P-5'-P [Catalytic activity/Vol]24 [iU]/dNormal6 - 46 Int._Unit/LFTMC RemisolAnion gap [Moles/Vol]13 mmol/LNormal6 - 16 mEq/LFTMC RemisolAST [Catalytic activity/Vol]20 [iU]/dNormal5 - 43 Int._Unit/LFTMC RemisolBilirubin [Mass/Vol]0.6 mg/dLNormal0.0 - 1.1 mg/dLFTMC RemisolCalcium [Mass/Vol]9.4 mg/dL Normal8.9 - 11.1 mg/dLFTMC RemisolChloride [Moles/Vol]97 mmol/QSog783 - 111 mmol/LFTMC RemisolCO2 [Moles/Vol]24 mmol/QZaradv96 - 31 mmol/LFTMC Remisol Creatinine [Mass/Vol]0.8 mg/dLNormal0.5 - 1.3 mg/dLFTMC RemisolGFR/1.73 sq M.predicted among blacks MDRD (S/P/Bld) [Vol rate/Area]mL/min/1.73 b8Emqhni >=59mL/min/1.73 m2FT Chem SGFR/1.73 sq M.predicted among non-blacks MDRD (S/P/Bld) [Vol rate/Area]mL/min/1.73 p0Uksazb>=59mL/min/1.73 m2[facility] Chem S Globulin (S) [Mass/Vol]3.7 g/dLNormal1.4 - 4.0 gm/dLFTMC RemisolGlucose [Mass/Vol]74 mg/fNGzcjom01 - 199 mg/dLOKEENE M[facility]ICIP[facility] [place] RemisolMagnesium [Mass/Vol]2.0 mg/dL Normal1.3 - 2.4 mg/dLFTMC RemisolPotassium [Moles/Vol]3.5 mmol/LNormal3.5 - 5.3 mmol/LFTMC RemisolProtein [Mass/Vol]8.2 g/dLHigh6.0 - 7.8 gm/dLFT Remisol Sodium [Moles/Vol]130 mmol/BMzl048 - 145 mmol/LFTMC RemisolTSH Qn4.56 m[IU]/L Normal0.34 - 5.60 mcIU/mLOKEENE M[facility] [place] RemisolUrea nitrogen [Mass/Vol]7 mg/dLNormal5 - 21 mg/dLFTMC RemisolUrea nitrogen/Creatinine [Mass ratio]9 mg/mgLow10 - 20FTMC RemisolHEMATOLOGYOrdered By: SYSTEM SYSTEM on 29-17-1445Wbtulmvrk/100 WBC (Bld) 0.3 %Normal0.0 - 2.0 %[facility] HemeAutoSSBasophils/Leukocytes Auto (Bld) [Pure # fraction]0.0 E9/LNormal0.0 - 0.2 E9/LFTMC HemeAutoSSEosinophils/100 WBC (Bld)0.5 %Normal0.0 - 8.0 %[facility] HemeAutoSSEosinophils/Leukocytes Auto (Bld) [Pure # fraction]0.0 E9/LNormal0.0 - 0.5 E9/LFTMC HemeAutoSSLymphocytes/100 WBC (Bld) 35.9 %Mtbbih20.0 - 50.0 %[facility] HemeAutoSSLymphocytes/Leukocytes Auto (Bld) [Pure # fraction]3.2 E9/LNormal1.0 - 4.0 E9/LFTMC HemeAutoSSMonocytes/100 WBC (Bld)8.8 %Normal4.0 - 14.0 %[facility] HemeAutoSSMonocytes/Leukocytes Auto (Bld) [Pure # fraction]0.8 E9/LNormal0.2 - 1.0 E9/LFTMC HemeAutoSSNeutrophils/100 WBC (Bld) 54.5 %Pbovne88.0 - 75.0 %[facility] HemeAutoSSNeutrophils/Leukocytes Auto (Bld) [Pure # fraction]4.8 E9/LNormal2.0 - 7.5 E9/LFTMC HemeAutoSSHEMATOLOGYOrdered By: Trena Castro on 94-74-1311Trgjukjhyjd distribution width (RBC) [Ratio]14.1 % Tjezab96.9 - 14.2 %[facility] HemeAutoSSHematocrit (Bld) [Volume fraction]38.5 %Normal 34.0 - 46.0 %[facility] HemeAutoSSHemoglobin (Bld) [Mass/Vol]13.1 g/pUOmjrre22.0 - 16.0 gm/dLFTMC HemeAutoSSMCH (RBC) [Entitic mass]29.4 nnWgrrvt31.0 - 34.0 pgFTMC HemeAutoSSMCHC (RBC) [Mass/Vol]34.1 g/vVQrlwse23.4 - 36.0 gm/dLFTMC HemeAutoSS MCV (RBC) [Entitic vol]86.0 iRFttjbd00.0 - 100.0 fLFTMC HemeAutoSSPlatelet mean volume (Bld) [Entitic vol]8.3 fLNormal6.4 - 10.8 fLFTMC HemeAutoSSPlatelets (Bld) [#/Vol]334.0 E9/LTsyzdq209.0 - 500.0 E9/LFTMC HemeAutoSSRBC (Bld) [#/Vol] 4.5 E12/LNormal4.3 - 5.9 E12/LFTMC HemeAutoSSWBC corrected for nucl RBC Auto (Bld) [#/Vol]8.9 E9/LNormal4.0 - 11.0 E9/LFTMC HemeAutoSSOB/NYLON OPERATOR - Office Visiton 66-33-0002UU/NYLON OPERATOR - Office VisitChief ComplaintComplains of: heavy bleeding Declines assistant surveyor, Rukhsanacecily Salomon, ROSE History of Present IllnessSanna [...] stroke 07/2017 PSH as above POB- 2007 [id number] 17week loss subchorionic h mknmquizm3793 39weeks bleeding at 5weeks for 2 weeks diet 0609-9146 calories exercise none 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 Review [...] History History of Oral Surgery Tooth Extraction Jewell Tooth Family History No pertinent family history Family history of cerebrovascular accident (CVA) (V17.1) (Z82.3) Family history of diabetes mellitus (V18.0) (Z83.3) Family history of cerebrovascular accident (CVA) (V17.1) (Z82.3) Family history of cerebrovascular accident (CVA) (V17.1) (Z82.3) Allergies No Known Drug Allergies Recorded By: Susie Salomon; 11/08/2017 4:19:42 PM Current Meds Ciprofloxacin HCl - 500 MG Oral Tablet;Ther apy: 28Ewp9153 to Recorded Dispense: 0 Days ; #: Sufficient Tablet; Refill: 0; BUBBA = N; Record; Last Updated By: Susie Salomon; 11/08/2017 4:19:42 PM Plavix 75 MG Oral Tablet;Therapy: 13Vei2485 to Recorded Dispense: 0 Days ; #: Sufficient Tablet; Refill: 0; BUBBA = N; Record; Last Updated By: Susie Salomon; 11/08/2017 4:19:42 PM Provera 10 MG Oral Tablet;Therapy: 60Nvo9527 to Recorded Dispense: 0 Days ; #: Sufficient Tablet; Refill: 0; BUBBA = N; Record; Last Updated By: Susie Salomon; 11/08/2017 4:19:42 PM Vitals Vital Signs Recorded: 76Nrq8168 04:22KAJqpdlfbv231Gwdkggosg08Hqhvzj8 ft 6 auCiftge800 lb BMI Hlkjercgfz19.57BSA Calculated1.6LSD52Nev8926Vhxa Scale6-7 Physical ExamConstitutional: Alert and in no acute distress. Well developed, well nourished. Head and Face: Head and face: Normal. Psychiatric: Alert and oriented x 3. Affect normal to patient baseline. Mood: Appropriate. Diagnoses/Problems Anemia (285.9) (D64.9) Asthma (493.90) (J45.909) Depression with anxiety (300.4) (F41.8) History of Oral Surgery Tooth Extraction Jewell Tooth No pertinent family history : Mother [...] GIDeclines STI testing todayWeight gain, offered a general forecaster consult and she declined. Encouraged exercise. Signatures Electronically signed by : RICHARD Ulrich; Nov 12 2017 8:46PM EST (Author)NormalUH TouchworksAntiphospholipid Abs IgG/IgMon 37-10-3053Mjsjrshanwugmjuc Ab-GqM006 GPLCritically high0-14[facility] HospitalComment on above:Result Comment: INTERPRETIVE INFORMATION: High- Specificity Antiphospholipid Antibody,IgG14 GPL or less......Rfpwldfy82 26 GPL.........Indeterminate Suggest repeat testing in 12 weeks27 GPL or greater. ..PositiveHigh-specificity antiphospholipid IgG and IgM antibodies are directedagainsta mixture of phosphatidylserine, phosphatidic acid, and beta- 2glycoprotein 1antigens. These antibodies are more specific than cardiolipin IgG andIgMantibodies in the diagnosis of antiphospholipid syndrome (APS). Antiphospholipid Ab-IgM6 MPLNormal013 Garcia StreetComment on above:Result Comment: INTERPRETIVE INFORMATION: High-Specificity Antiphospholipid Antibody,IgM14 MPL or less......Lgndemtv03 37 MPL.........Indeterminate Suggest repeat testing in 12 weeks38 MPL or greater. ..PositiveHigh-specificity antiphospholipid IgG and IgM antibodies are directedagainsta mixture of phosphatidylserine, phosphatidic acid, and beta- 2glycoprotein 1antigens. These antibodies are more specific than cardiolipin IgG andIgMantibodies in the diagnosis of antiphospholipid syndrome (APS).Performed by [facility],[address] [place] [address],[place] [address] dgk.Robin, Zhang Bledsoe MD - Lab. [facility] Miscellaneous test 1on 05-28-2017 Miscellaneous Test 1SEE NOTEUCHealth Grandview HospitalComment on above: Result Comment: Test name [...] ALEX and clinical suspicion remains, consider antinuclear antibody(NASEME)testing by IFA. Additional information and recommendations for testingmay befound [email or web address].Performed by [facility],[address] [facility] [place] [address] khb.Robin,Zhang Bledsoe MD - Lab. DirectorCardiolipin Antibodies, IgA, IgG, IgMon 84-39-2848Wbuvisswzbe Ab IgA0 APLNormal0-11[facility] County HospitalComment on above:Result Comment: INTERPRETIVE INFORMATION: Cardiolipin Antibodies, IgA0-11 APL: Jxrxjvah79-50 APL: In uhhfidjmxtz59-22 APL: Low to Moderately Qokfuagl66 APL or above: High PositivePerformed by [facility],[address] [facility] [address] yhb.RobinZhang MD - Lab. DirectorCardiolipin Ab IgG 111 GPLCritically high0-14[facility] County HospitalComment on above:Result Comment: INTERPRETIVE INFORMATION: Anti-Cardiolipin IgG Ab0-14 GPL: Cbvgdkuv32- 19 GPL: Kphtbgsxymlve48-91 GPL: Low to Moderately Esmcajcc07 GPL or above: High PositiveThe persistent presence [...] other criteria phospholipid antibody tests.Cardiolipin Ab IgM10 MPLNormal0-12[facility] County HospitalComment on above:Result Comment: INTERPRETIVE INFORMATION: Anti-Cardiolipin IgM0-12 MPL: Wutbpogx94-95 MPL: Pmhtpgvejpday41-59 MPL: Low to Moderately Gbwyzdtl72 MPL or above: High PositiveThe persistent presence [...] and/orothercriteria phospholipid antibody tests.Jennifer-Simpson Virus by PCRon 30-28-1726Nwoizox Simpson Virus by PCRNot DetectedNoLutheran Medical CenterComment on above:Result Comment: NOT DETECTED - A negative result does not rule out thepresence of PCR inhibitors inthe patient specimen or assayspecific nucleic acid in concentrations below the level ofdetection bythe assay.INTERPRETIVE INFORMATION: Jennifer Simpson Virus by PCRTest developed and characteristics determined by [facility]. SeeCompliance Statement A: Robin/CSPerformed by [facility],[address] [facility] [place] [address] vjl.Robin, Zhang Bledsoe MD - Lab. DirectorEpstein Simpson Virus SourceCSFUCHealth Grandview HospitalOligoclonal Band Profileon 87-32-2959Pwedozw7854 mg/lTLmgyfk6743-0061IpixvWeisbrod Memorial County HospitalAlbumin 5.2 ratioNormal0.0-9.0[facility] County HospitalAlbumin, CSF20 mg/dLNormal 0-35[facility] HospitalCSF IgG Synthesis Rate<0.0Normal<=8.0[facility] HospitalCSF Oligoclonal BandsNegativeNormalNegativeWeisbrod Memorial County HospitalCSF Oligoclonal Bands Number0 BandsNormal0-1MYampa Valley Medical CenterGlobulin1060 mg/qFNqxlsc926-4029JkhtfWeisbrod Memorial County Hospital Comment on above:Result Comment: REFERENCE INTERVAL: Immunoglobulin GAccess complete set of age- and/or gender-specific reference intervalsforthis test in the Phase III Development Laboratory Test Directory (Robin).IgG Index0.45 ratioNormal 0.28-0.66[facility] County HospitalImmunoglobulin G CSF2.5 mg/dLNormal0.0-6.0 [facility] County HospitalINR Coag RelTime (Bld)0.12 {INR}Normal0.09-0.25 [facility] County HospitalInterpretationSee NoteNoLutheran Medical CenterComment on above:Result Comment: Isoelectric focusing/immunofixation reveals no oligoclonal bands ineitherthe CSF orthe serum. This is considered to be a negative result foroligoclonal bands. Approximately 5 percentof patients with clinicallydefinitive multiple sclerosis will have a negative result.Performed by [facility],[address] [facility] [place] [address] tds.Robin, Zhang Bledsoe MD - Lab.DirectorMyelin Basic Protein, CSFon 38-14-8949Ierdiv Basic Protein1.82 ng/mLNormal0.00-5.50[facility] County HospitalComment on above:Result Comment: INTERPRETIVE INFORMATION: Myelin Basic ProteinTest developed and characteristics determined by [facility]. SeeCompliance Statement D: Robin/CSPerformed by [facility],[address] [facility] [place] [address] fcr.Robin, Zhang Bledsoe MD - Lab. [facility] Miscellaneous test 1on 90-63-0484Bvaurjj Prompt 94351JolacuQeshlUCHealth Grandview HospitalComment on above:Result Comment: Corrected result; [place] [id number] on 05/25/2017 at 13:14 by V/AUT [employer] Miscellaneous test 1on 21-41-4400Kiafpzf Gvbmgx29542ClqoaaAunoyUCHealth Grandview HospitalComment on above:Result Comment: DS DNACSF Cell Counton 05-25-2017 CSF no diffsee [facility] Institute [facility] Fort LoganComment on above:Result Comment: Differential not performed -Total Nucleated cellsCSF AppearanceClear NormalWeisbrod Memorial County HospitalCSF ColorColorlessUCHealth Grandview HospitalCSF Tube NumberTube 4UCHealth Grandview HospitalFluid Clot Evaluationsee belowUCHealth Grandview HospitalComment on above:Result Comment: No Clots SeenTotal Nucleated Cells0 K/uLNormal0-8[facility] HospitalTotal Red Blood Cells0 K/uLUCHealth Grandview HospitalCSF Glucose on 11-93-6580ZTH Jmohxlo48 mg/hLTtgahf65-16RyrjhWeisbrod Memorial County HospitalCSF Proteinon 59-07-1951LAO Bjdvzzq30 mg/dFErqgzo81-38AjraxWeisbrod Memorial County Hospital Creatine Kinaseon 35-81-5142Xdvxtpro kinase (CK)71 U/LNormal0-170[facility] County HospitalCulture, CSFon 65-85-2011Ucssban, CSFORDER#: [id number] ORDERED BY: VERNA MONGE: CSF (Spinal Fluid) CSF COLLECTED: 05/25/17 13:25ANTIBIOTICS AT AMARILYS.: RECEIVED : 05/25/17 13:25Gram Stain Direct FINAL 05/25/17 15:30 No WBC's, No organisms seenCulture, CSF FINAL 05/28/17 09:04 No growth at 72 hours UCHealth Grandview HospitalFL LUMBAR PUNCTURE DIAGon 37-36-4242UH LUMBAR PUNCTURE DIAGFL LUMBAR PUNCTURE DIAG : [...] LUMBAR PUNCTURE.Interpreted by:NIKITA Mezaigned by:Humera Covarrubias MD05/25/17inal resultNormalWeisbrod Memorial County Hospital Homocysteineon 44-52-1898Ajhaislackbd1.1 umol/LNormal0.0-15.0[facility] County HospitalPartial Thromboplastin Timeon 13-63-9481kIWR19.7 kLmfhgl46.6-35.4 [facility] County HospitalComment on above:Result Comment: Heparin Therapeutic Range: 38.8 - 54.6 seconds.Prothrombin Timeon 84-11-8237KSN Coag RelTime (PPP)1.0 {INR}UCHealth Grandview HospitalComment on above:Result Comment: Recommended INR therapeutic [...] secProthrombin time (PT) Coag time (PPP) 10.7 sNormal8.1-13.7[facility] Vital Signs Date TimeVital SignValuePerforming KkioutbzmDqbieivt32-01-9243 09:26-0400Body mass index (BMI) [Ratio]33.98 kg/k6Jvvqo Induction Manager DO Work Phone: [facility] CareGogwqvobwk04-60-1430 09:26-0400Body .48 kgCorey Montez DO Work Phone: [facility] CareLokwytsutm16-47-6669 09:26-0400Diastolic blood cefozyti78 mm[Hg]Wilton Verient Work Phone: [facility] CareSmgmqsnyee77-68-2340 09:26-0400Systolic blood pujidvbf150 mm[Hg]Wilton Verient Work Phone: [facility] CareQyajmwagsz57-48-6359 13:44-0400Body yrxssp537.6 cmApreet Callahan MD MPH Work Phone: [phone]10-20-2025 13:44-0400Body mass index (BMI) [Ratio]33.73 kg/q0QiagtSam Callahan MD MPH Work Phone: [phone])891-[address] [place], [place] 5652710-20-2025 13:44-0400Body zwirxr45.8 kgSam Callahan MD MPH Work Phone: [facility]10-20-2025 13:44-0400Diastolic blood qqoqiwhk11 mm[Hg]Sam Callahan MD MPH Work Phone: [facility]10-20-2025 13:44-0400Heart rate 79 /minSam Callahan MD MPH Work Phone: 1(567)585-[address] [place], [place] [address]647610-20-2025 13:44-0400 Respiratory rate18 /minSam Callahan MD MPH Work Phone: [facility]10-20-2025 13:44-0400Systolic blood anaowdra058 mm[Hg]Sam Callahan MD MPH Work Phone: [facility]10-13-2025 10:45-0400Body mass index (BMI) [Ratio]34.12 kg/r1Ljmuc Montez DO Work Phone: 1(061)613-[address] [place], [place] [address]Hvpiklnqgp05-29-3432 10:45-0400Body .89 kgCorey Montez DO Work Phone: 1(567)486-[address] [place] [address]-13-2025 10:45-0400Diastolic blood lmfwhede97 mm[Hg]Wilton Montez DO Work Phone: 1(094)961-[address] [place], [place] [address]Tsjlwvhtjv97-77-5149 10:45-0400Systolic blood sqrwjnii108 mm[Hg]Wilton Montez DO Work Phone: [phone])797-[address] [place], [place] [address]Pvxwyrmapm24-94-2236 09:30-0400Body mass index (BMI) [Ratio]34.14 kg/m2Ewnoc Montez DO Work Phone: [phone])793-[address] [place], [place] [address]Jnsinvyjny37-98-5220 09:30-0400Body .94 kgCorey Montez DO Work Phone: 1(868)744-[address] [place], [place] [address]Viwvuzeswv69-84-6295 09:30-0400Diastolic blood mm[Hg]Wilton Omntez DO Work Phone: 1(121)543-[address] [place], [place] [address]Eatsgsdskt43-06-0115 09:30-0400Systolic blood odrtspvx876 mm[Hg]Wilton Montez DO Work Phone: [phone])044-[address] [place] [address]-08-2025 15:14-0400Body mass index (BMI) [Ratio]33.73 kg/v1Kwrsv Montez DO Work Phone: [place] [address]Betuhclonu88-36-8265 15:14-0400Body npvojw37.8 kg Wilton Montez DO Work Phone: [facility] CareKvmqvwlgsi32-15-0372 15:14-0400Diastolic blood mm[Hg]Wilton Herrmann DO Work Phone: noRe[facility]olds [facility] HospitalGwiswpudxp75-92-5864 15:14-0400Systolic blood zvloucgl504 mm[Hg]Wilton Herrmann DO Work Phone: noReynolds County General Memorial HospitalOzojtbvzhj97-47-6896 14:22-0400Body mass index (BMI) [Ratio]33.89 kg/r9MnyommsuMukul Noyola MD Work Phone: [phone]09-04-2025 14:22-0400Body cdzaww17.25 kgMukul Noyola MD Work Phone: [phone])[address] [place], [place] [address]62309-04-2025 14:22-0400Diastolic blood bpdtlpge94 mm[Hg]Mukul Noyola MD Work Phone: [phone] [place], [place] 4962309-04-2025 14:22-0400Systolic blood quvzxkey261 mm[Hg]Mukul Noyola MD Work Phone: 1([phone])[address] [place], [place] [address]308-26-2025 11:34-0400Body yjltop641.7 cmKatherine Negrete APRN.BRIDGE SAW OPERATOR Work Phone: [facility]08-26-2025 11:34-0400Body mass index (BMI) [Ratio]33.57 kg/b8UadpaKatherine Negrete APRN.BRIDGE SAW OPERATOR Work Phone: [facility]08-26-2025 11:34-0400Body temperature 97.59 [degF]Katherine Negrete PORTFOLIO CONSULTANT.BRIDGE SAW OPERATOR Work Phone: [facility]08-26-2025 11:34-0400Body fprjop73.4 kgKatherine Negrete APRN.BRIDGE SAW OPERATOR Work Phone: [facility]08-26-2025 11:34-0400Diastolic blood vxegmdjw59 mm[Hg]Katherine Negrete PORTFOLIO CONSULTANT.BRIDGE SAW OPERATOR Work Phone: [facility]08-26-2025 11:34-0400Heart rate80 /min Katherine Negrete APRN.BRIDGE SAW OPERATOR Work Phone: [facility]08-26-2025 11:34-0400Respiratory rate 16 /minKatherine Negrete APRN.BRIDGE SAW OPERATOR Work Phone: [facility]08-26-2025 11:34-6435WwE5% (BldA) [Mass fraction]98 %Katherine Negrete APRN.BRIDGE SAW OPERATOR Work Phone: [facility]08-26-2025 11:34-0400Systolic blood kodbcdbq626 mm[Hg]Katherine Negrete PORTFOLIO CONSULTANT.BRIDGE SAW OPERATOR Work Phone: [facility]08-14-2025 09:28-0400Body mass index (BMI) [Ratio]33.41 kg/u8Dtoar Montez DO Work Phone: [facility] CareSdrslmnism50-01-1769 09:28-0400Body tinaqp85.89 kgCorey Montez DO Work Phone: [place] [address]Mjabyizjos80-02-1687 09:28-0400Diastolic blood qfdtghij76 mm[Hg]Wilton Montez DO Work Phone: [place] [address]Jemlbvkvxb06-05-0005 09:28-0400Systolic blood czmnxfuw138 mm[Hg]Wilton Montez DO Work Phone: [facility] CareJjycjxmmuq97-34-3637 10:53-0400Body mass index (BMI) [Ratio]33.57 kg/f4Nwtdh Montez DO Work Phone: [facility] CareQpcsvxkflg46-89-5538 10:53-0400Body gvymrc05.35 kgCorey Montez DO Work Phone: [facility] CareLizeahohap94-73-4848 10:53-0400Diastolic blood ugnsshes11 mm[Hg]Wilton Montez DO Work Phone: [facility] CareFgrbvufxid63-62-5385 10:53-0400Systolic blood ajjatfwe904 mm[Hg]Wilton Montez DO Work Phone: [place] [address]Hpvzialyxo66-10-4089 13:07-0400Body mass index (BMI) [Ratio]33.73 kg/n5YotnsqLorena Enciso RN Work Phone: 1(302)015-[address] [place], [place] 3887607-23-2025 13:07-0400Body dctajb80.8 kgLorena Enciso RN Work Phone: 1(616)649-[address] [place], [place] 3887607-03-2025 09:32-0400Body mass index (BMI) [Ratio]33.81 kg/a7Iumpi Montez DO Work Phone: [facility] CareUaiygeosdq28-23-6857 09:32-0400Body .03 kgCorey Montez DO Work Phone: 1(778)652-[address] [place], [place] [address]Oeodnhrogb75-43-0032 09:32-0400Diastolic blood vjdboybd27 mm[Hg]Wilton Montez DO Work Phone: [facility] CareEqioxzmsvn06-54-4148 09:32-0400Systolic blood shydyrql051 mm[Hg]Wilton Montez DO Work Phone: 1(874)522-[address] [place], [place] [address]Tsiaehlgzi98-01-5604 14:23-0400Body mass index (BMI) [Ratio]33.46 kg/q5YflydKatherine Negrete APRN.BRIDGE SAW OPERATOR Work Phone: [facility]07-01-2025 14:23-0400Body temperature 97 [degF]Katherine Negrete APRN.BRIDGE SAW OPERATOR Work Phone: [facility]07-01-2025 14:23-0400Body sauwlk52.1 kgKatherine Negrete APRN.BRIDGE SAW OPERATOR Work Phone: [facility]07-01-2025 14:23-0400Diastolic blood lhxlupnf45 mm[Hg]Katherine Negrete APRN.BRIDGE SAW OPERATOR Work Phone: [facility]07-01-2025 14:23-0400Heart rate82 /min Katherine Negrete APRN.BRIDGE SAW OPERATOR Work Phone: [facility]07-01-2025 14:23-0400Respiratory rate 16 /minKatherine Negrete APRN.BRIDGE SAW OPERATOR Work Phone: [facility]07-01-2025 14:23-2169CzF4% (BldA) [Mass fraction]100 %Katherine Negrete APRN.BRIDGE SAW OPERATOR Work Phone: [facility]07-01-2025 14:23-0400Systolic blood pddnguvk715 mm[Hg]Katherine Negrete APRN.BRIDGE SAW OPERATOR Work Phone: [facility]06-05-2025 14:10-0400Body mass index (BMI) [Ratio]33.89 kg/m2[facility]06-05-2025 14:10-0400Body eyweqw87.25 kgCo[facility] Memorial [facility]06-05-2025 14:10-0400Diastolic blood kxxiibrc59 mm[Hg][facility]06-05-2025 14:10-0400Systolic blood mm[Hg][facility]03-27-2025 12:07-0400Body mass index (BMI) [Ratio]34.44 kg/a6Aeqtb Montez DO Work Phone: [facility] CarePexohjxogl78-78-7484 12:07-0400Body lecimk13.8 kg Wilton Montez DO Work Phone: [facility] CarePsmudnvaeh26-02-4261 12:07-0400Diastolic blood uvywkitt88 mm[Hg]Wilton Montez DO Work Phone: [facility] CareVuhsdmzbtg47-76-8714 12:07-0400Systolic blood snfkukgi143 mm[Hg]Wilton Montez DO Work Phone: [facility] CareObrtholcmx08-83-1256 08:27-0500Blood Pressure LocationScott KAPLE 005-8401Fzhrmv-SmlntMagruder Hospital03-03-2025 08:27-0500Diastolic blood zcegxdaw51 mm[Hg]Penelope KAPLE [phone]-JbwrkMagruder Hospital03-03-2025 08:27-0500Heart rate77 /minScott KAPLE 176-7598Ioofys-OdivbMagruder Hospital03-03-2025 08:27-7750GxW3% (BldA) [Mass fraction]99 %Penelope CASAS [phone]-ZwkkgMagruder Hospital03-03-2025 08:27-0500Systolic blood ecupsqse839 mm[Hg]Penelope CASAS 255-6232Gzjcyo-EurouMagruder Hospital02-24-2025 15:21-0500Body mass index (BMI) [Ratio]34.93 kg/f4Gkqtv Montez DO Work Phone: [facility] CareQzuotzpjxy80-03-4695 15:21-0500Body .16 kgCorey Montez DO Work Phone: [facility] CareDukvhujrim96-74-7243 15:21-0500Diastolic blood uvxxmwgo68 mm[Hg]Wilton Montez DO Work Phone: [facility] CareKadcrcowds43-24-7167 15:21-0500Systolic blood sgenmpqj028 mm[Hg]Wilton Montez DO Work Phone: [facility] CareNyridptbxi87-47-1374 16:14-0500Blood Pressure LocationJESSICA BACA 196-1925Msnbgo-ZitziPremier Health [facility] 06-19-2024 16:14-0500Diastolic blood mm[Hg]JESSICA BACA 023-1883Zcwzog-EtnnfPremier Health [facility] 06-19-2024 16:14-0500Heart rate74 /minBARRONCLYN KEVEN [phone]-LjuvqPremier Health [facility] 06-19-2024 16:14-1477BzV0% (BldA) [Mass fraction]100 %JESSICA BACA [phone]-NyhwiPremier Health [facility] 06-19-2024 16:14-0500Systolic blood jisfudbz074 mm[Hg]JESSICA BACA [phone]-YqbibCherrington Hospital [facility] [place] 06-09-2024 13:55-0500Blood Pressure LocationScott KAPLE [phone]-RwurwMagruder Hospital02-10-2025 13:55-0500Diastolic blood amfhrnzo97 mm[Hg]Penelope KAPLE 257-7144Tdaoum-GbfroMagruder Hospital02-10-2025 13:55-0500Heart rate78 /minScott KAPLE 679-7709Iichpx-EpsklMagruder Hospital02-10-2025 13:55-2144JtZ9% (BldA) [Mass fraction]99 %Penelope KAPLE 451-0714Nwdtvd-TvnpcMagruder Hospital02-10-2025 13:55-0500Systolic blood mm[Hg]Penelope STYLESLE 933-0081Qvwrhr-BoylpMagruder Hospital02-03-2025 11:43-0500Body mass index (BMI) [Ratio]34.51 kg/x4Vnusz Montez DO Work Phone: [facility] CareDcmdznzycd94-67-2767 11:43-0500Body xhfnbe89.98 kgCorey Montez DO Work Phone: [facility] CareGfzicpjtil22-57-6387 11:43-0500Diastolic blood llywywnh39 mm[Hg]Wilton Montez DO Work Phone: [facility] CareDwmzaljxgm85-93-2157 11:43-0500Systolic blood ysnhjqxv738 mm[Hg]Wilton Montez DO Work Phone: [facility] CareTopuapppij47-78-4533 13:07-0500Body xwlgva546.7 cmVramos Calix MD Work Phone: [facility]01-29-2025 13:07-0500Body mass index (BMI) [Ratio]35.02 kg/r2UpdgkKristofer Calix MD Work Phone: [facility]01-29-2025 13:07-0500Body temperature 97.59 [degF]Kristofer Calix MD Work Phone: [facility]01-29-2025 13:07-0500Body .5 kgKristofer Calix MD Work Phone: [facility]01-29-2025 13:07-0500Diastolic blood zynjsaca64 mm[Hg]Kristofer Calix MD Work Phone: [facility]01-29-2025 13:07-0500Heart rate72 /min Kristofer Calix MD Work Phone: [facility]01-29-2025 13:07-0500Respiratory rate 16 /minKristofer Calix MD Work Phone: [facility]01-29-2025 13:07-8601FtY3% (BldA) [Mass fraction]99 %Kristofer Calix MD Work Phone: [facility]01-29-2025 13:07-0500Systolic blood qeztlyxk701 mm[Hg]Kristofer Calix MD Work Phone: [facility]01-07-2025 14:40-0500Body mass index (BMI) [Ratio]35.41 kg/s3Vxiyv Montez DO Work Phone: [facility] CarePfxicvflfg73-82-7393 14:40-0500Body phnbhy07.52 kgCorey Montez DO Work Phone: [facility] CareBdjmzvvxzs31-66-6840 14:40-0500Diastolic blood mzxvoilw65 mm[Hg]Wilton Montez DO Work Phone: [facility] CareEpppwflhoc52-98-0609 14:40-0500Systolic blood lhsfrwiu072 mm[Hg]Wilton Montez DO Work Phone: [facility] CareNbtwtjbyzq34-12-1521 10:57-0500Body mass index (BMI) [Ratio]35.85 kg/m2[facility]12-06-2024 10:57-0500Body bcerro695.75 kgNoMissouri Baptist Hospital-Sullivan10-08-2024 13:29-0400Blood Pressure LocationScott KAPLE 000-8061Pwzjen-Wrwzo[address] [place], [place] [address]1010-08-2024 13:29-0400Body acseemvkaan42.06 [degF]Penelope CASAS 260-2550Sbrxww-Ffprq[address] [place], [place] 6[address]1010-08-2024 13:29-0400Diastolic blood ctffmdku96 mm[Hg]Penelope STYLESLE 633-3072Xkbdzo-Tjjvf[address] [place], [place] [address]0-08-2024 13:29-0400Heart rate76 /minScott KAPBEN 565-5831Ewgadg-Acevx[address] [place], [place] [address]1010-08-2024 13:29-0400Respiratory rate16 /minScott KAPBEN 437-4821Fytkzt-Aeugh[address] [place], [place] 6[address]1010-08-2024 13:29-7357UiC0% (BldA) [Mass fraction]99 %Penelope CASAS 152-1750Lzivug-Jilfe[address] [place], [place] 6[address]0-08-2024 13:29-0400Systolic blood mgyvqmgc393 mm[Hg]Penelope CASAS 453-6035Zbypgd-Wlqmn[address] [place], [place] 6[address]0-05-2024 14:39-0400Blood Pressure LocationPreeti Gudimella 376-3607Ltlxjk-Saocj[address] [place], [place] 1136510-05-2024 14:39-0400Body dhwaybybjqv63.06 [degF]Anni Gudimella 242-8168Mokboj-Kazgn[address] [place], [place] 1136510-05-2024 14:39-0400Diastolic blood qfawfpon88 mm[Hg]Anni Gudimella 286-8352Mmegvp-VbcmkKettering Health [facility] Campus10-05-2024 14:39-0400Heart rate98 /minPreeti Gudimella 176-6394Slkqkz-Nxdmi[address] [place], [place] 113[address]10-05-2024 14:39-3461XwX0% (BldA) [Mass fraction]99 %Anni Gudimella 043-5501Chajed-WbuodCherrington Hospital Convenient Bitw45-86-6678 14:39-0400Systolic blood nofiemcj573 mm[Hg]Anni Gudimella [phone]-WthbuCherrington Hospital Convenient Xkzg92-46-2542 13:45-0400Body maselr202.7 cmVramos Calix MD Work Phone: [facility]09-04-2024 13:45-0400Body mass index (BMI) [Ratio]36.52 kg/p4BlfmmKristofer Calix MD Work Phone: [facility]09-04-2024 13:45-0400Body temperature 97.11 [degF]Kristofer Calix MD Work Phone: [facility]09-04-2024 13:45-0400Body dnjbgu187.7 kgKristofer Calix MD Work Phone: [facility]09-04-2024 13:45-0400Diastolic blood grwddobo01 mm[Hg]Kristofer Calix MD Work Phone: [facility]09-04-2024 13:45-0400Heart rate91 /min Kristofer Calix MD Work Phone: [facility]09-04-2024 13:45-0400Respiratory rate 16 /minKristofer Calix MD Work Phone: [facility]09-04-2024 13:45-1100YgM0% (BldA) [Mass fraction]100 %Kristofer Calix MD Work Phone: [facility]09-04-2024 13:45-0400Systolic blood mm[Hg]Kristofer Calix MD Work Phone: [facility]08-01-2024 13:40-0400Body temperature 97.7 [degF]Chair Pike Work Phone: [facility]08-01-2024 13:40-0400Diastolic blood fahwduzj57 mm[Hg]Chair Pike Work Phone: [facility]08-01-2024 13:40-0400Heart rate75 /min Chair Pike Work Phone: [facility]08-01-2024 13:40-0400Respiratory rate 16 /minChair Pike Work Phone: [facility]08-01-2024 13:40-0256HsQ9% (BldA) [Mass fraction]99 %Chair Stew Work Phone: [facility]08-01-2024 13:40-0400Systolic blood [id number] mm[Hg]Chair Pike Work Phone: [facility]07-25-2024 14:00-0400Body temperature 98.2 [degF]Chair Pike Work Phone: [facility]07-25-2024 14:00-0400Diastolic blood qvzeqcau43 mm[Hg]Chair Pike Work Phone: [facility]07-25-2024 14:00-0400Heart rate79 /min Chair Pike Work Phone: [facility]07-25-2024 14:00-0400Respiratory rate 16 /minChair Stew Work Phone: [facility]07-25-2024 14:00-1897GrQ8% (BldA) [Mass fraction]99 %Chair Pike Work Phone: [facility]07-25-2024 14:00-0400Systolic blood bfsydnpk694 mm[Hg]Chair Stew Work Phone: [facility]07-18-2024 14:08-0400Diastolic blood yigjyknc53 mm[Hg]Chair Stew Work Phone: [facility]07-18-2024 14:08-0400Heart rate85 /min Chair Stew Work Phone: [facility]07-18-2024 14:08-0400Respiratory rate 18 /minChair Stew Work Phone: [facility]07-18-2024 14:08-3457KcC9% (BldA) [Mass fraction]96 %Chair Stew Work Phone: [facility]07-18-2024 14:08-0400Systolic blood ncsjasua751 mm[Hg]Chair Stew Work Phone: [facility]07-12-2024 14:44-0400Blood Pressure LocationMonica Saba [id number] [place], [place] [address]881007-12-2024 14:44-0400Body dnlnconuxsc30.34 [degF]Monica Saba 030-5436Zhkigk-Dkenn[address] [place], [place] 6881007-12-2024 14:44-0400Diastolic blood kjmkocxw15 mm[Hg]Monica Saba 215-0883Otxqec-Mrcgo[address] [place], [place] 6881007-12-2024 14:44-0400Heart rate85 /Jennifer Saba 795-1335Iuzpll-Yjysy[address] [place], [place] 6881007-12-2024 14:44-0400Respiratory rate16 /Jennifer Saba 664-2643Nrgnhr-Vnvny[address] [place], [place] 6881007-12-2024 14:44-0977McV9% (BldA) [Mass fraction]99 %Monica Saba 026-2282Cjtksg-Vpjch[address] [place], [place] 6881007-12-2024 14:44-0400Systolic blood fcyniznh068 mm[Hg]Monica Saba 439-9299Jdzymg-Daooc[address] [place], [place] 6881006-25-2024 16:48-0400Blood Pressure LocationLourdes Garber 400-0821Rvnvrw-Gtovo[address] [place], [place] 6881006-25-2024 16:48-0400Body esshkwtnktb73.52 [degF]Lourdes Garber 762-3758Pnmakn-Xlfud[address] [place], [place] 6881006-25-2024 16:48-0400Diastolic blood mm[Hg]Lourdes Garber 842-5654Dwgrbf-Vhrua[address] [place], [place] 6881006-25-2024 16:48-0400Heart rate86 /minLourdes Garber 505-4007Mvjgrg-Wgwnx[address] [place], [place] 6881006-25-2024 16:48-8292PzJ2% (BldA) [Mass fraction]99 %Lourdes Garber 752-9975Ndtffm-Fwkub[address] [place], [place] 6881006-25-2024 16:48-0400Systolic blood gskpspux353 mm[Hg]Lourdes Garber 682-9294Wqvvxb-Mehup[address] [place], [place] 6881005-31-2024 21:17-0400Body inksoptzhlj24.06 [degF]Benny Uribe [address]05-31-2024 21:17-0400 Diastolic blood nioxmtxn82 mm[Hg]Benny Uribe [address] [place], [place] 5303905-31-2024 21:17-0400Heart rate67 /minBenny Uribe [address] [place], [place] 5303905-31-2024 21:17-0400Mean blood mm[Hg]Benny Uribe [address] [place], [place] 5303905-31-2024 21:17-6256AhF2% (BldA) [Mass fraction]95 %Benny Uribe [address] [place], [place] 5303905-31-2024 21:17-0400 Systolic blood nnqysfeu970 mm[Hg]Benny Uribe [address] [place], [place] 0703005-31-2024 20:00-0400 Diastolic blood csujkwci64 mm[Hg]Benny Uribe [address] [place], [place] 0703005-31-2024 20:00-0400Heart rate78 /minBenny Uribe [address] [place], [place] 0703005-31-2024 20:00-0400Mean blood duavwrmh16 mm[Hg]Benny Uribe [address] [place], [place] 0703005-31-2024 20:00-0400 Respiratory rate20 /minBenny Uribe [address] [place], [place] 0703005-31-2024 20:00-0400 Systolic blood yqqhbuwp700 mm[Hg]Benny Uribe [address] [place], [place] 0703005-31-2024 19:30-0400 Diastolic blood mionvojq92 mm[Hg]Benny Uribe [address] [place], [place] 0703005-31-2024 19:30-0400Heart rate80 /minBenny Uribe [address] [place], [place] 0703005-31-2024 19:30-0400Mean blood athaleal801 mm[Hg]Benny Uribe [address] [place], [place] 0703005-31-2024 19:30-0400 Respiratory rate18 /minBenny Uribe [address] [place], [place] 0703005-31-2024 19:30-0583KuK9% (BldA) [Mass fraction]100 %Benny Uribe [address] [place], [place] 0703005-31-2024 19:30-0400 Systolic blood pcyivlma163 mm[Hg]Benny Uribe [address] [place], [place] 0703005-31-2024 19:00-0400 Respiratory rate17 /minBenny Uribe [address] [place], [place] 0703005-31-2024 18:32-0400Body zkqkuyjcizj03.42 [degF]Benny Uribe [facility]05-31-2024 18:32-0400Heart rate69 /minAntonderik Rony [facility]05-31-2024 17:46-0400 Diastolic blood ziouzlhe44 mm[Hg]JANET DUNHAM 392-1185Udksmm-Lanhd[address] [place] [address] Con[employer]ient Lwwz16-99-6852 17:46-0400Mean blood uypujbjw662 mm[Hg]READING DUNHAM 476-5406Ndiqly-Smrtg[address] [place] [address] Con[employer]ient Orxw84-62-5668 17:46-0400Systolic blood mm[Hg][facility] 094-1159Jxpbyu-Zlohv[address] [place] [address] Convenient Lfsj05-67-5326 17:40-0400Blood Pressure LocationFRANCJONEL DUNHAM 311-4574Lszpgd-Namib[address] [place] [address] Con[employer]ient Mshg40-74-2162 17:40-0400Body kykhecngaxw60.88 [degF][facility] 477-9554Bospcc-Wyghx[address] [place] [address] Convenient Cmgn45-32-8241 17:40-0400Diastolic blood enviuohx31 mm[Hg][facility] 667-6929Vmiquy-Henvz[address] [place] [address] Convenient Nfla81-19-2193 17:40-0400Heart rate79 /minFRPRITESH DUNHAM 335-7844Oiqugk-Hmiyq[address] [place] [address] Con[employer]ient Xfce48-21-4637 17:40-9987HaJ1% (BldA) [Mass fraction]97 %READING DUNHAM 186-8481Tifchz-Vsijl[address] [place] [address] Convenient Jtez00-84-0476 17:40-0400Systolic blood ffgmiwek616 mm[Hg]JANET DUNHAM 711-1083Fjctij-Pcaor[address] [place] [address] Con[employer]ient Lory13-55-9039 11:42-0400Blood Pressure LocationScott KAPLE 094-3468Xvqmmv-MfoogMagruder Hospital04-05-2024 11:42-0400Body wjwxxwrnysa73.06 [degF]Penelope CASAS 644-1763Nldyhs-AoxkgMagruder Hospital04-05-2024 11:42-0400Diastolic blood fimuxaon89 mm[Hg]Penelope CASAS 662-3322Qhkerg-LpmvfMagruder Hospital04-05-2024 11:42-0400Heart rate72 /minScott KAPLE 506-7992Ipmngu-NpryfMagruder Hospital04-05-2024 11:42-0400Respiratory rate16 /minScott KAPLE 565-8214Gbuewj-MhwrkMagruder Hospital04-05-2024 11:42-9367HiB3% (BldA) [Mass fraction]99 %Penelope CASAS 757-2925Uhmkkw-IfcnvMagruder Hospital04-05-2024 11:42-0400Systolic blood msijfxde354 mm[Hg]Penelope CASAS 472-8158Nepgvs-HaqfdMagruder Hospital02-16-2024 14:05-0500Body ttqffi824.7 Jerry Calix MD Work Phone: [facility]02-16-2024 14:05-0500Body temperature 97.39 [degF]Kristofer Calix MD Work Phone: [facility]02-16-2024 14:05-0500Body nxiuht261.1 kgKristofer Calix MD Work Phone: [place] [address]-16-2024 14:05-0500Diastolic blood ggccsuqn51 mm[Hg]Kristofer Calix MD Work Phone: [facility]02-16-2024 14:05-0500Heart rate87 /min Kristofer Calix MD Work Phone: [place] [address]-16-2024 14:05-0500Respiratory rate 16 /minKristofer Calix MD Work Phone: [facility]02-16-2024 14:05-1290JyW2% (BldA) [Mass fraction]95 %Kristofer Calix MD Work Phone: [facility]02-16-2024 14:05-0500Systolic blood clbbinpz162 mm[Hg]Kristofer Calix MD Work Phone: [facility]01-26-2024 11:11-0500Blood Pressure LocationScott KAPLE [address] [place], [place] 4801701-26-2024 11:11-0500Body ameflztxehr23.7 [degF]Penelope KAPLE [address] [place], [place] 4801701-26-2024 11:11-0500Diastolic blood rfakctyl98 mm[Hg]Penelope KAPLE 980-8372Snipuc-Hzeqr[address]01-26-2024 11:11-0500Heart rate76 /minScott KAPLE 472-5778Hrnsfd-Ilmta[address] [place], [place] 6881001-26-2024 11:11-0500Respiratory rate18 /minScott KAPLE [address] [place], [place] 4801701-26-2024 11:11-2184LhP5% (BldA) [Mass fraction]98 %Penelope KAPLE [address] [place], [place] 4801701-26-2024 11:11-0500Systolic blood iijvceha026 mm[Hg]Penelope KAPLE 464-8700Bcwrqe-Jigob[address]10-19-2023 09:41-0400Blood Pressure LocationScott KAPLE 681-6396Vzcbwh-Knpkp[address] [place], [place] 6881010-19-2023 09:41-0400Body zbmszefbzld51.42 [degF]Penelope KAPLE 940-6870Bixwsq-Hrqmd[address] [place], [place] 6881010-19-2023 09:41-0400Diastolic blood kxprhute98 mm[Hg]Penelope PRAVEEN 919-3352Gtlypj-Anqjn[address] [place], [place] 6881010-19-2023 09:41-0400Heart rate80 /minScott KAPLE 225-3763Wnmckj-Rulgf[address] [place], [place] 6881010-19-2023 09:41-0400Respiratory rate18 /minScott KAPLE 643-2857Apkepy-Wekne[address] [place], [place] 6881010-19-2023 09:41-9555LeW2% (BldA) [Mass fraction]98 %Penelope STEPHANIBEN 352-7345Uqvilc-Rzvcs[address]10-19-2023 09:41-0400Systolic blood qttmnlos349 mm[Hg]Penelope PRAVEEN 944-7171Sllcfm-Vgqph[address]06-23-2023 09:44-0400Blood Pressure LocationScott STEPHANILE [address] [place], [place] 4801706-23-2023 09:44-0400Body yzkuhctmzkz60.24 [degF]Penelope PRAVEEN [address] [place], [place] 4801706-23-2023 09:44-0400Diastolic blood xnsfqivg46 mm[Hg]Penelope CASAS 736-7085Jbaqbs-Oiwze[address]06-23-2023 09:44-0400Heart rate88 /minScott STEPHANILE 259-9501Tvtuyh-Gpemx[address] [place], [place] 6881006-23-2023 09:44-0400Respiratory rate18 /minScott KAPLE 967-6059Tvhpcr-Bizgg[address] [place], [place] 6881006-23-2023 09:44-5388HsD6% (BldA) [Mass fraction]98 %Penelope CASAS 895-5309Tbhorx-Khpoo[address] [place], [place] 6881006-23-2023 09:44-0400Systolic blood qexrrwxf799 mm[Hg]Penelope CASAS 564-9668Xmlljd-XtrfcMagruder Hospital03-30-2023 13:18-0400Body ctvufr053.7 cmVramos Calix MD Work Phone: [facility]03-30-2023 13:18-0400Body temperature 97.5 [degF]Kristofer Calix MD Work Phone: [facility]03-30-2023 13:18-0400Body .78 kgKristofer Calix MD Work Phone: [facility]03-30-2023 13:18-0400Diastolic blood ezwjolpy72 mm[Hg]Kristofer Calix MD Work Phone: [facility]03-30-2023 13:18-0400Heart rate76 /min Kristofer Calix MD Work Phone: [facility]03-30-2023 13:18-0400Respiratory rate 16 /minKristofer Calix MD Work Phone: [facility]03-30-2023 13:18-9517IoD4% (BldA) [Mass fraction]97 %Kristofer Calix MD Work Phone: [facility]03-30-2023 13:18-0400Systolic blood noivlqlo766 mm[Hg]Kristofer Calix MD Work Phone: [facility]12-22-2022 13:45-0500Body temperature 98.71 [degF]Chair Stew Work Phone: [facility]12-22-2022 13:45-0500Diastolic blood avnkiuwz47 mm[Hg]Chair Stew Work Phone: [facility]12-22-2022 13:45-0500Heart rate85 /min Chair Stew Work Phone: [place] [address]-22-2022 13:45-4509XhJ8% (BldA) [Mass fraction]97 %Chair Stew Work Phone: [facility]12-22-2022 13:45-0500Systolic blood fsyrgqkx511 mm[Hg]Chair Pike Work Phone: [facility]12-07-2022 16:27-0500Diastolic blood pznpjrtu19 mm[Hg]Chair Pike Work Phone: [phone] [address]-07-2022 16:27-0500Heart rate84 /min Chair Stew Work Phone: [place] [address]-07-2022 16:27-0500Respiratory rate 18 /minChair Stew Work Phone: [place] [address]-07-2022 16:27-7396HtI1% (BldA) [Mass fraction]96 %Chair Stew Work Phone: [facility]12-07-2022 16:27-0500Systolic blood karbfopu544 mm[Hg]Chair Stew Work Phone: [facility]11-28-2022 14:20-0500Body rnggeg189.7 cmVramos Calix MD Work Phone: [facility]11-28-2022 14:20-0500Body temperature 97.39 [degF]Kristofer Calix MD Work Phone: [place] [address]-28-2022 14:20-0500Body vtdmiv564.23 kgKristofer Calix MD Work Phone: [place] [address]-28-2022 14:20-0500Diastolic blood mm[Hg]Kristofer Calix MD Work Phone: [place] [address]-28-2022 14:20-0500Heart csrb970 /minKristofer Calix MD Work Phone: [place] [address]-28-2022 14:20-0500Respiratory rate 16 /minKristofer Calix MD Work Phone: [facility]11-28-2022 14:20-8376NhX9% (BldA) [Mass fraction]97 %Kristofer Calix MD Work Phone: [facility]11-28-2022 14:20-0500Systolic blood mm[Hg]Kristofer Calix MD Work Phone: [facility]10-03-2022 11:46-0400Body .7 cmVramos Calix MD Work Phone: [facility]10-03-2022 11:46-0400Body temperature 97.2 [degF]Kristofer Calix MD Work Phone: [facility]10-03-2022 11:46-0400Body .42 kgKristofer Calix MD Work Phone: [facility]10-03-2022 11:46-0400Diastolic blood yxzwzavy89 mm[Hg]Kristofer Calix MD Work Phone: [facility]10-03-2022 11:46-0400Heart rate88 /min Kristofer Calix MD Work Phone: [facility]10-03-2022 11:46-0400Respiratory rate 16 /minKristofer Calix MD Work Phone: [facility]10-03-2022 11:46-3034WmN7% (BldA) [Mass fraction]99 %Kristofer Calix MD Work Phone: [facility]10-03-2022 11:46-0400Systolic blood iekidlts410 mm[Hg]Kristofer Calix MD Work Phone: [facility]04-22-2022 10:46-0400Blood Pressure [facility] 064-7753Wjczus-EomvvPremier Health [facility] 04-22-2022 10:46-0400Diastolic blood ynfmsngn76 mm[Hg] PERNELL SIDELL 946-8193Noyjcf-InaetPremier Health [facility] 04-22-2022 10:46-0400Heart rate96 /minDERIK SIDELL 905-0549Lorphc-ZssjwPremier Health [facility] 04-22-2022 10:46-6788TsV7% (BldA) [Mass fraction]99 % PERNELL SIDELL 399-8561Hgexbm-LhuhyPremier Health [facility] 04-22-2022 10:46-0400Systolic blood ycbwdksu384 mm[Hg] PERNELL SIDELL 399-2967Qpaxor-IjhgkPremier Health [facility] Encounters Encounter DateEncounter TypeCare ProviderFacilityStart: 03-11-2025 End: 39-67-2713sjxcoxbrudCVJTFPGenesis Hospitaltart: 03-11-2025 End: 18-17-5058Nqloxy outpatient visit 25 minutesSana Palma MD Work Phone: [phone]-Tobor Medicine at [facility] Comment on above:Gestational diabetes mellitus (GDM) in second trimester controlled on oral hypoglycemic drug (Primary Dx); Antiphospholipid syndromeStart: 03-10-2025 End: 88-24-7455Dqgygq flowsheetCorey Montez DO Work Phone: NONA [facility]BGYNStart: 03-10-2025 End: 63-97-7616Upjymu flowsheetCorey Montez DO Work Phone: NOZ[facility] [place] [facility]BGYNStart: 03-10-2025 End: 77-74-5749uxemjkzhueLKMWS FAZIONot AvailableStart: 03-06-2025 End: 86-15-7009Ydawkbmfw Result EncounterCorey Montez DO Work Phone: noms External Department UnsolicitedStart: 03-06-2025 End: 75-59-2422Jlreycbwm Result EncounterCorey Montez DO Work Phone: noms External Department UnsolicitedStart: 03-02-2025 End: 90-74-9434pigsfkhjwmKALJL MARTINEZFacility:[facility] Healthtart: 02-27-2025 End: 17-99-0418Clwlrefhq Result EncounterCorey Montez DO Work Phone: noms External Department UnsolicitedStart: 02-27-2025 End: 62-21-3683Nhtybmowh Result EncounterCorey Montez DO Work Phone: noms External Department UnsolicitedStart: 02-23-2025 End: 45-04-9159Pedbrw flowsheetCorey Montez DO Work Phone: NONB [place] [facility]BGYNStart: 02-23-2025 End: 76-22-7683Rdejnu flowsheetCorey Montez DO Work Phone: noms [facility]BGYNStart: 02-23-2025 End: 59-37-8014wqcwvwzmblYSUSL FAZIONot AvailableStart: 02-23-2025 End: 85-47-6242Jyhwvw outpatient visit 15 minutesCorey Montez DO Work Phone: noms [place] OBGYNComment on above:Third trimester ([facility]); 30 weeks gestation of ([facility])Start: 02-20-2025 End: 55-73-2705Ezthyximr Result EncounterCorey Montez DO Work Phone: noms External Department UnsolicitedStart: 02-20-2025 End: 97-82-2217Fznxnewcf Result EncounterCorey Montez DO Work Phone: noms External Department UnsolicitedStart: 02-17-2025 End: 68-96-8479Nrvdjivsx Result EncounterCorey Montez DO Work Phone: noms External Department UnsolicitedStart: 02-17-2025 End: 19-29-3347Wrqlezdxe Result EncounterCorey Montez DO Work Phone: noms External Department UnsolicitedStart: 02-16-2025 End: 96-44-9524Ebjsju consultation new/estab patient 80 Héctor Callahan MD MPH Work Phone: [facility] HospitalComment on above:Antiphospholipid syndrome (Primary Dx); Antiphospholipid syndrome complicating , antepartum; History of CVA (cerebrovascular accident); Coordination of complex care; 29 weeks gestation of pregnancyStart: 02-16-2025 End: 44-53-0119mcqnlpjzggAJWKU REDDY AMBATIOhioHealth Grant Medical Centertart: 02-10-2025 End: 05-63-0212Pbmtjamck encounterAnnita WELLS Work Phone: [phone]-Tdvpm Medicine at [facility] Start: 02-09-2025 End: 22-68-8113rzqkirgjtvMULJU FAZIONot AvailableStart: 02-09-2025 End: 11-42-7792Nrmghj outpatient visit 15 minutesCorey Montez DO Work Phone: noms [place] OBGYNComment on above:Third trimester ([facility]); 28 weeks gestation of ([facility]); Anemia complicating childbirth ([facility]); Anticoagulant long-term use; Antiphospholipid antibody positive; Blood pressure elevated without history of HTN; Coagulation defect, unspecified ([facility])Start: 02-06-2025 End: 71-47-9220ewibgbcochYSSERGWY P DOCHEVASouthview Medical Center HospitalStart: 02-06-2025 End: 24-67-5884Vesifl outpatient visit 25 minutesMukul Noyola MD Work Phone: [phone]-Tuyge Medicine at [facility] Comment on above:27 weeks gestation of (Primary Dx); Multigravida of advanced maternal age in third trimester; Gestational diabetes mellitus (GDM) in second trimester controlled on oral hypoglycemic drug; Antiphospholipid syndrome complicating , antepartum; Antiphospholipid syndromeStart: 02-05-2025 End: 58-25-4100dnllltxqreSSXJK [facility] Ambulatory PPGStart: 02-03-2025 End: 38-66-1645opnfuqkgkoZjqcl R FAOFacility:FTMCStart: 01-19-2025 End: 25-69-1095rmjokmqutfKXEYF FAONot AvailableStart: 01-19-2025 End: 80-57-2240Bgnvfb outpatient visit 15 minutesCorey Montez DO Work Phone: NONC [facility] OBGYNComment on above:Second trimester ([facility]); 25 weeks gestation of ([facility]); Gestational diabetes mellitus (GDM), antepartum, gestational diabetes method of control unspecified([facility]); Anticoagulant long-term use; Antiphospholipid antibody positive; Antiphospholipid antibody syndrome ([facility])Start: 85-61-1248znpvhsznlnZolwg R FAZIOFacility:FTMCStart: 01-13-2025 End: 93-38-8724Thechn outpatient visit 25 minutesColleen Maxim Mays PA-C Work Phone: [phone]-Wherj Medicine at [facility] Comment on above:Gestational diabetes mellitus (GDM) in second trimester controlled on oral hypoglycemic drug (Primary Dx); Antiphospholipid syndrome; Other specified hypothyroidism; Antiphospholipid syndrome complicating , antepartumStart: 01-13-2025 End: 87-79-7275wdtrfhqpokTVBVQDM E [facility] Centertart: 01-09-2025 End: 07-76-1977Cwgklrfjy Batsheva Noyola MD Work Phone: [phone]-Moyke Medicine at [facility] Comment on above:Antiphospholipid syndrome (Primary Dx)Start: 01-07-2025 End: 95-10-5277Pmpckkvfq encounterJacque Pat [facility]- [facility]art: 01-05-2025 End: 11-00-8390pyiftclfquIBXCL FAONot AvailableStart: 01-05-2025 End: 88-36-7246Fyvivi outpatient visit 15 minutesCorey Verient Work Phone: NOMS [place] OBGYNComment on above:Second trimester ([facility]); 23 weeks gestation of ([facility]); Thyroid disease ; Gestational diabetes mellitus (GDM), antepartum, gestational diabetes method of control unspecified([facility]); Multigravida of advanced maternal age in second trimester ([facility]); H/O loss; Lightheaded; DizzinessStart: 01-05-2025 End: 51-33-5194Zxdghk flowsheetPeopleGoaly Verient Work Phone: NOZJ [facility] OBGYNStart: 01-05-2025 End: 59-26-0091Glevpo flowsheetCore Montez DO Work Phone: NOXT [facility] OBGYNStart: 01-05-2025 End: 22-15-7557Ltntoanhpbqkr procedureWhittier Rehabilitation Hospital RNMaternal- Medicine at [facility] HospitalComment on above:Multigravida of advanced maternal age [...] Family history of autism; HyponatremiaStart: 01-01-2025 End: 63-55-8193Neokwg consultation new/estab patient 80 Margaux Noyola MD Work Phone: [facility] on above: 22 weeks gestation of (Primary Dx); Antiphospholipid syndrome complicating , antepartum; History of stroke; History of loss in prior , currently in second trimester; Gestational diabetes mellitus (GDM) in second trimester controlled on oral hypoglycemic drug; Multigravida of advanced maternal age in second trimester; Hypothyroidism affecting in second trimester; Family history of autism; HyponatremiaStart: 01-01-2025 End: 82-05-9245Ftepmi Simon Warren RNMaternal Medicine [place] Comment on above:Multigravida of advanced maternal age in second trimester (Primary Dx); Antiphospholipid syndrome complicating , antepartum; Gestational diabetes mellitus (GDM) in second trimester controlled on oral hypoglycemic drug; Insulin controlled gestational diabetes mellitus (GDM) in second trimester; AMA (advanced maternal age) multigravida 35+, second trimester; Hypothyroidism, unspecified typeStart: 12-26-2024 End: 77-42-1839Rjfkup Ty Noyola MD Work Phone: [facility] - LaborComment on above: Gestational diabetes mellitus (GDM) in second trimester controlled on oral hypoglycemic drug (Primary Dx)Start: 12-23-2024 End: 17-58-7502Xmgtsbn encounter procedureKatherine Negrete APRN.CNP Work Phone: Hematology/OncologyStart: 12-23-2024 End: 95-39-3979efpjivfbzjHkairJuju Negrete APRN.CNP Work Phone: Hematology/OncologyComment on above:Antiphospholipid antibody positive (Primary Dx); Iron deficiency anemia secondary to blood loss (chronic); Vitamin D deficiency; Primary hypercoagulable state (HCC)Start: 12-17-2024 End: 50-37-3590keghoyrfscLBBTVKUD BROGANSouthview Medical Center HospitalStart: 12-17-2024 End: 94-77-5279Kydftx outpatient visit 25 minutesAlisa HUTTON Work Phone: [phone]-Ubkrp Medicine at [facility] Comment on above:Gestational diabetes mellitus (GDM) in second trimester controlled on oral hypoglycemic drug (Primary Dx)Start: 12-17-2024 End: 07-16-2235jyjfmrrayhRDDGTMOC BROMercy Health [facility] HospitalStart: 12-16-2024 End: 12-11-1697Culowpxgb Result EncounterCorey Montez DO Work Phone: noms External Department UnsolicitedStart: 12-16-2024 End: 91-10-1697Wcahjzosv Result EncounterCorey Montez DO Work Phone: noms External Department UnsolicitedStart: 12-12-2024 End: 79-59-0700Qfclzvlad encounterDenikijacinta Kendall LD Work Phone: [phone]-Hrqri Medicine at [facility] Start: 12-11-2024 End: 20-44-0406Vpenxy flowsheetCorey Montez DO Work Phone: noms [place] OBGYNStart: 12-11-2024 End: 99-18-0389Sqvntf flowsheetCorey Montez DO Work Phone: noms [facility] OBGYNStart: 12-11-2024 End: 51-17-9244Tflewktgq Result EncounterCorey Montez DO Work Phone: noms External Department UnsolicitedStart: 12-11-2024 End: 87-40-0387xofibhdkhoQREPN FAZIONot AvailableStart: 12-11-2024 End: 71-02-7612Rangom outpatient visit 15 minutesCorey Montez DO Work Phone: noms [facility] OBGYNComment on above:19 weeks gestation of ([facility]); Second trimester ([facility]); Thyroid disease ; Multigravida of advanced maternal age in second trimester ([facility]); Gestational diabetes mellitus (GDM), antepartum, gestational diabetes method of control unspecified([facility])Start: 12-03-2024 End: 98-04-6234apvhyqcfzrNMXIJPOG BROGANProMedica [facility] Medical Centertart: 12-03-2024 End: 87-14-3734Cwfpxz outpatient visit 25 minutesAlisa Saba PORTFOLIO CONSULTANT-BRIDGE SAW OPERATOR Work Phone: [phone]-Pitiq Medicine at [facility] Comment on above:Insulin controlled gestational diabetes mellitus (GDM) in second trimester (Primary Dx)Start: 12-03-2024 End: 30-67-3543Mwyewkovt encounterAnni Abreu CMAMaternal- Medicine at [facility]ertart: 11-20-2024 End: 15-15-8378Zhqvrc flowsheetCorey Montez DO Work Phone: [facility] BCP OBStart: 11-20-2024 End: 31-06-6205Ebokai flowsheetCorey Montez DO Work Phone: [facility] B[facility] OBStart: 11-20-2024 End: 89-27-5306mkmwyrpgldHAHWC FAZIONot AvailableStart: 11-20-2024 End: 66-61-3817Pdwdtr outpatient visit 15 minutesCorey Montez DO Work Phone: [facility] Piyush OBGYNComment on above:Second trimester ([facility]); 16 weeks gestation of ([facility]); Screening, , for anatomic survey ([facility]); Vaginal discharge; Sinus headacheStart: 11-19-2024 End: 78-42-5830iunodnknmrDekmno M Frey RN Work Phone: [phone]-Ruhfe Medicine at [facility] Comment on above:Gestational diabetes mellitus (GDM), antepartum, gestational diabetes method of control unspecified(Primary Dx)Start: 11-04-2024 End: 34-56-5334Dxdvy Syd Noyola MD Work Phone: [phone]-Zsnee Medicine at [facility] Start: 10-30-2024 End: 11-51-6016Cwilvb flowsheetCorey Montez DO Work Phone: NOMS BCP OBStart: 10-30-2024 End: 18-50-4512Vfmrxl flowsheetCorey Mnotez DO Work Phone: NOMS BCP OBStart: 10-30-2024 End: 82-98-1188Ekgylj outpatient visit 15 minutesCorey Montez DO Work Phone: NOMS BCP OBComment on above:Second trimester (HHS-HCC); 13 weeks gestation of (HHS-HCC); Thyroid disease ; Multigravida of advanced maternal age in second trimester (HHS-HCC); Gestational diabetes mellitus (GDM), antepartum, gestational diabetes method of control unspecified(HHS-HCC); Elevated glucose tolerance testStart: 10-30-2024 End: 94-49-8260ihgipsbwpnDAMBC FAZIONot AvailableStart: 10-29-2024 End: 56-75-1381RmxcymQmpwpgBunny Paz APRN.CNP Work Phone: Hematology/OncologyComment on above:Refill Request Start: 10-28-2024 End: 88-36-4955Bvziasr encounter Valentine Negrete APRN.CNP Work Phone: Hematology/OncologyStart: 10-28-2024 End: 92-43-2411pdnrumpgklSwmzdJuju Negrete APRN.CNP Work Phone: Hematology/OncologyComment on above:Primary hypercoagulable state (HCC) (Primary Dx); CVA, old, speech/language deficit; Cerebral hyponatremia; Personal history of TIA (transient ischemic attack)Start: 10-28-2024 End: 27-85-6160Jknwxfdis Gregoria Negrete APRN.CNP Work Phone: Cancer Appts MCComment on above:ResultsStart: 10-24-2024 End: 55-53-8064Rjunyhssw Gregoria Negrete APRN.CNP Work Phone: Hematology/OncologyComment on above:Lab OrdersStart: 10-20-2024 End: 57-78-5693TdnmfdIhpaf Abhyankar MD Work Phone: Hematology/OncologyComment on above:Refill Request Start: 10-13-2024 End: 85-84-9067AqfyqjDell Khan RNMaternal- Medicine at [facility] HospitalComment on above:Gestational diabetes mellitus (GDM), antepartum, gestational diabetes method of control unspecified(Primary Dx)Start: 10-06-2024 End: 91-59-5933Rxsuskxqk Result EncounterCorey Montez DO Work Phone: noms External Department UnsolicitedStart: 10-06-2024 End: 64-01-0979Wdwwkhoyh Result EncounterCorey Montez DO Work Phone: noms External Department UnsolicitedStart: 10-02-2024 End: 75-39-4734vtdtmcokqxOCVOV FAZIONot AvailableStart: 10-02-2024 End: 82-70-5693Nqfrwz outpatient visit 5 minutesNoms Bcp Ob Montez NurseNOMS BCP OBComment on above:GA: 7x3wKgasn: 09-11-2024 End: 82-13-3112Vdnkkneec Result EncounterCorey Montez DO Work Phone: noms External Department UnsolicitedStart: 09-11-2024 End: 54-10-9483Mletzsaff Result EncounterCorey Montez DO Work Phone: noms External Department UnsolicitedStart: 09-09-2024 End: 03-05-7086etmgsibfwxHyhou A KAPLEFacility:Val PCStart: 09-09-2024 End: 14-91-7383Hynazng encounter procedureScomike CASAS [phone]-MwvxjCherrington Hospital [facility] Start: 09-07-2024 End: 30-60-8590mpegtuhejeVidil M. DempseyFacility:GIL NorwalkStart: 09-02-2024 End: 18-67-4322Rfllwlxvu encounterNatmurphy Johnson RNHematology/OncologyComment on above:Patient UpdateStart: 08-26-2024 End: 50-87-3356Amivsibyf encounterKirstofer Calix MD Work Phone: Hematology/OncologyComment on above:Lab OrdersStart: 08-23-2024 End: 07-12-9669ymjhagbofmPhapk R FAZIOFacility:FTMCStart: 08-23-2024 End: 16-05-0475Lskjgcc encounter procedureCorecarmen Palmer MONTEZ [facility] Start: 07-25-2024 End: 19-12-9434QqezxpSujyv Abhyankar MD Work Phone: Hematology/OncologyComment on above:Refill Request Start: 07-24-2024 End: 48-77-7111Qkrbvy flowsheetCorey Montez DO Work Phone: noms BCP OBStart: 07-24-2024 End: 88-63-3258Lrrlbq flowsheetCorey Montez DO Work Phone: noms BCP OBStart: 07-24-2024 End: 60-06-5299deevggywkyAMJOO FAZIONot AvailableStart: 07-24-2024 End: 74-04-2205Honbia outpatient visit 15 minutesCorey Montez DO Work Phone: noms BCP OBComment on above:Irregular menstrual cycle Start: 07-09-2024 End: 47-09-5698agljplzovoFhsbybn A VisciFacility:FTMCStart: 07-09-2024 End: 11-24-7132Lhbctht encounter procedureInez [facility] Start: 07-08-2024 End: 19-65-9112Kry-admission assessmentInez [facility] Start: 07-07-2024 End: 54-79-6030wjecledkvrIojiy A KAPLEFacilсветлаан:Val PCStart: 06-30-2024 End: 32-19-8366qkibbamahcUhlmc A KAPLEFacility:Val PCStart: 06-30-2024 End: 01-69-8557Jydatuv encounter procedureScomike CASAS [phone]-RjcruCherrington Hospital Primary Care Start: 06-23-2024 End: 96-57-5598Xqgzhb outpatient visit 15 minutesCorey Montez DO Work Phone: noms [facility] OBComment on above:Vaginal bleeding; Dizziness; Abnormal TSH; Vaginal discharge; Pelvic pain in femaleStart: 06-23-2024 End: 92-61-8878lksqmvpgziGYGOM FAZIONot AvailableStart: 06-23-2024 End: 69-73-7856Phjqkjxh Result EncounterCorey Montez DO Work Phone: noms External Department UnsolicitedStart: 06-23-2024 End: 80-03-0422Rqkfgytt Result EncounterCorey Montez DO Work Phone: noms External Department UnsolicitedStart: 06-19-2024 End: 96-22-4832nilaqaxyvzWLSFRN R CIERSEZWSKIFacility: MilanStart: 06-19-2024 End: 92-53-7057Obvhzfo encounter procedureJACLYN Jeanine BACA [phone]-WsdzaPremier Health [facility] Start: 06-12-2024 End: 44-68-0870llzznhanzbXzacz R SHYLAZIOFacility:FTMCStart: 06-12-2024 End: 02-57-6446Lomjwad encounter procedureCorey R MONTEZ [facility] Start: 06-09-2024 End: 25-24-9576qpvehpykxoQlkus A KAPLEFacility:Val PCStart: 06-09-2024 End: 97-02-6393Bwliedo encounter procedureCorey R MONTEZ [facility] Start: 06-06-2024 End: 82-04-5502mesbplackgHHAQDZ A LEHMANNFacility:FT BellevueStart: 06-02-2024 End: 95-29-4031tagpadsuepARJXZ FAZIONot AvailableStart: 06-02-2024 End: 09-07-0665Orzmsy outpatient visit 15 minutesCorey Montez DO Work Phone: noms BCP OBComment on above:Follow-up visit after miscarriage; Abnormal TSH; History of thyroid diseaseStart: 05-28-2024 End: 29-70-1264Bzdnhgfzz encounterKristofer Calix MD Work Phone: Cancer Appts MCStart: 05-28-2024 End: 40-35-4819Eeeoxg outpatient visit 25 minutesKristofer Calix MD Work Phone: Hematology/OncologyComment on above:Primary hypercoagulable state (HCC) (Primary Dx); CVA, old, speech/language deficit; Iron deficiency anemia secondary to blood loss (chronic); Vitamin D deficiency; Antiphospholipid antibody syndrome (HCC)Start: 05-28-2024 End: 53-40-6882fdqgvyojbuXYIXM ABHYANKARFacility:Premier Healthtart: 32-66-8418qjfsfppoxuCsxqk A KAPFacility:[place] PCStart: 05-14-2024 End: 74-20-2875Yjwqhtdqb encounterNatmurphy Johnson RNHematology/OncologyComment on above:Patient UpdateStart: 05-10-2024 End: 51-19-6390Zhnhdatyc Result EncounterCorey Montez DO Work Phone: noms External Department UnsolicitedStart: 05-10-2024 End: 88-92-8456Znhvvoltw Result EncounterCorey Montez DO Work Phone: noms External Department UnsolicitedStart: 05-10-2024 End: 60-11-5644ztlvdgymdwOjwsg FazioFiC[facility] Work Phone: Start: 05-10-2024 End: 84-47-3874Ajnrevrn ReferredCorey Montez DO Work Phone: [facility] Path Spec [place] HospStart: 05-06-2024 End: 11-86-4924zipazfkgfnWTDKR FAZIONot AvailableStart: 05-06-2024 End: 86-29-9834Yhmykk flowsheetCorey Montez DO Work Phone: noms BCP OBStart: 05-06-2024 End: 79-21-8440Pdjipp flowsheetCorey Montez DO Work Phone: NOJX BCP OBStart: 05-06-2024 End: 90-22-0479raxycsnyviOKYWE FAZIONot AvailableStart: 05-06-2024 End: 75-71-3033Vohayw outpatient visit 15 minutesCorey Montez DO Work Phone: noms BCP OBComment on above:14 weeks gestation of ; Second trimester ; Confirm viability with history of miscarriage, ultrasoundStart: 04-28-2024 End: 52-79-9996EzhrrzMurce Abhyankar MD Work Phone: Hematology/OncologyComment on above:Refill Request Start: 04-12-2024 End: 20-05-3870Hifnxbbdk Result EncounterCorey Montez DO Work Phone: noms External Department UnsolicitedStart: 04-12-2024 End: 59-50-7493Pamwzvakk Result EncounterCorey Montez DO Work Phone: noms External Department UnsolicitedStart: 04-05-2024 End: 61-77-9835Kfhnxvwfv Result EncounterCorey Montez DO Work Phone: noms External Department UnsolicitedStart: 04-05-2024 End: 97-97-5867Tkgrzwnri Result EncounterCorey Montez DO Work Phone: noms External Department UnsolicitedStart: 04-04-2024 End: 05-43-4494heflftlovcMTUVH FAZIONot AvailableStart: 04-04-2024 End: 53-39-3915Pelsio outpatient visit 5 minutesNoms Bcp Ob Montez NurseNOMS BCP OBComment on above:GA: 6a9eHlhgm: 03-01-2024 End: 63-83-7813dyjdeurxbhGaxre R FAZIOFacility:FTMCStart: 03-01-2024 End: 29-85-1341Ulwgodp encounter procedureCorey R MONTEZ [facility] Start: 02-27-2024 End: 62-47-0601aphxyrrceaSnxug R FAZIOFacility:FTMCStart: 02-27-2024 End: 36-70-5269Atviptuup encounterNatmurphy Johnson RNHematology/OncologyComment on above:Patient QuestionStart: 02-25-2024 End: 55-46-2075yikiiscgbtPqegy R FAZIOFacility:FTMCStart: 02-25-2024 End: 87-16-2155Mwbhlwi encounter procedureCorey R MONTEZ [facility] Start: 02-23-2024 End: 74-45-4142rtosjbmklyAmxfn A KAPLEFacility:FTMCStart: 02-23-2024 End: 69-87-7584Gzbesfz encounter procedureCorey R MONTEZ [facility] Start: 02-05-2024 End: 02-44-2840alaocrnjocMwnpv A STEPHANILEFacility:Val PCStart: 02-05-2024 End: 88-63-1253Kgzdgdq encounter procedureScott A KAPLE [phone]-XfdrpCherrington Hospital [facility] Care Start: 02-05-2024 End: 79-35-8682Xbhc adult monitoring check doneScott A STEPHANILE [phone]-CilgeCherrington Hospital [facility] Start: 02-02-2024 End: 57-98-6217ljfkdyqrfwBsulcq GudimellaFacility:GIL TaylorkStart: 02-02-2024 End: 89-90-1882Dksjzvf encounter procedurePreeti Merlincatiesherry [phone]-CsbjzCherrington Hospital [facility] Start: 10-36-3169fsrgrggplcDnuae A STEPHANI Facility:[place] PCStart: 01-24-2024 End: 76-64-4619FncgewNfngs Abhyankar MD Work Phone: Hematology/OncologyComment on above:Refill Request Start: 01-02-2024 End: 32-38-8411Kwotxfswe encounterKristofer Calix MD Work Phone: Cancer Appts MCComment on above:ResultsStart: 01-02-2024 End: 45-14-4949Lgucwg outpatient visit 15 minutesKristofer Calix MD Work Phone: Hematology/OncologyComment on above:Iron deficiency anemia secondary to blood loss (chronic) (Primary Dx); Vitamin D deficiency; Malaise and fatigueStart: 12-17-2023 End: 86-58-9418Cwgustvqo encounterNatalimaxim Johnson RNHematology/OncologyStart: 12-06-2023 End: 71-28-0984nkqtownvdkAavvsertw L ClarkFacility:FTMCStart: 12-06-2023 End: 23-07-4865Fgofqde encounter procedureMonica Saba [facility] Start: 77-83-3165qyuxjcllxdHgcff A STEPHANI Facility:[place] PCStart: 11-29-2023 End: 73-38-2638tshffcpiufThfeo Abhyankar MD Work Phone: Hematology/OncologyComment on above:Iron infusion side effects?Refill RequestIron deficiency anemia of (Primary Dx); Iron deficiency anemia secondary to blood loss (chronic)Start: 11-22-2023 End: 28-83-5776uogjxuiuizPjhcd Angelito Claudio Work Phone: Hematology/OncologyComment on above:Iron deficiency anemia of (Primary Dx); Iron deficiency anemia secondary to blood loss (chronic)Start: 11-15-2023 Telephone encounterFinancial Navigator Delgado Work Phone: Hematology/OncologyStart: 11-15-2023 End: 41-25-0926xfjwxjrhpvBzxna Angelito Stew Work Phone: Hematology/OncologyComment on above:Iron deficiency anemia of (Primary Dx); Iron deficiency anemia secondary to blood loss (chronic)Start: 11-09-2023 End: 87-84-7719Sverhcp encounter procedureElirachna Saba [phone]-GpdjnCherrington Hospital [facility] Care Start: 11-09-2023 End: 88-74-8750Ajcxrk WorkLori Penelope FLYNNematology/OncologyStart: 11-05-2023 Telephone encounterKristofer Calix MD Work Phone: Cancer Appts MCComment on above:AppointmentStart: 10-23-2023 End: 01-11-6352zsnfkakdjtDvtiikn Grace MisslerFacility:Val PCStart: 10-23-2023 End: 16-09-3344Uxyywck encounter procedureLourdes Garber [phone]-BvamoCherrington Hospital [facility] Start: 09-28-2023 End: 47-38-1704Mrfvireqh department patient visitBenny Uribe [facility] Start: 09-28-2023 End: 31-84-8034jbttdxsizlQLDelma DUNHAMFacility:GIL TaylorkStart: 09-28-2023 End: 61-66-1289Pwkiezc encounter procedureJANET DUNHAM [phone]-WawdrCherrington Hospital [facility] Start: 83-18-4481Rcnnsplnt encounterKristofer Calix MD Work Phone: Cannsf Appts MCComment on above:Appointment RescheduledStart: 09-21-2023 End: 55-36-5958ucmpnwwdceQexrd Abhyankar MD Work Phone: Hematology/OncologyComment on above:Iron deficiency anemia secondary to blood loss (chronic) (Primary Dx)Start: 09-21-2023 End: 18-30-5675Jeqgucfonzir consultation with Song Calix MD Work Phone: Hematology/OncologyStart: 08-03-2023 End: 98-59-0463kuynsijrjbWzqhi A KAPLEFacility:Val PCStart: 08-03-2023 End: 05-15-3016Xnkbepb encounter procedureScott Cecily CASAS [phone]-RzrjaCherrington Hospital Primary Care Start: 06-29-2023 End: 82-02-2964nqerhxkvorPlmqr A KAPLEFacility:Val PCStart: 06-29-2023 End: 62-54-0457Arhiiyc encounter procedureScott A KAPLE [phone]-EeogfCherrington Hospital Primary Care Start: 10-64-5707aodhaxletnYuebhre Powell system integration engineer/OncologyComment on above:Lab results/recommendationsStart: 06-19-2023 E-mail encounter from Jose Carlos Johnson RNSANDUSKYStart: 06-15-2023 End: 03-67-0650Qczuxx outpatient visit 25 minutesKristofer Calix MD Work Phone: Hematology/OncologyComment on above:Vitamin D deficiency (Primary Dx); Hypercalcemia; Iron deficiency anemia secondary to blood loss (chronic)Start: 06-15-2023 Telephone encounterKristofer Calix MD Work Phone: Cancer Appts MCComment on above:ResultsStart: 50-64-3487Pcrnlesep encounterKristofer Calix MD Work Phone: Hematology/OncologyComment on above:Lab OrdersStart: 14-38-9323Yoxuxwgau encounterKristofer Calix MD Work Phone: Cancer Appts MCComment on above:Future Appointment Start: 05-31-2023 End: 09-00-1737unafvrtngkWkylc Abhyankar MD Work Phone: Hematology/OncologyComment on above:Primary hypercoagulable state (HCC) (Primary Dx); CVA, old, speech/language deficit; Hypercalcemia; Vitamin D deficiency; Iron deficiency anemia secondary to blood loss (chronic); Malaise and fatigueStart: 05-31-2023 End: 44-69-6020Rxossoayczuu consultation with Song Calix MD Work Phone: SANDUSKYStart: 05-25-2023 End: 49-31-9442dqkkmktamfRalqx A KAPLEFacility:Val PCStart: 05-25-2023 End: 57-70-9383Fzuaxuj encounter Coreen CASAS [phone]-ZrsosCherrington Hospital [facility] Care Start: 05-01-2023 End: 77-58-0847aiqvhvsxokRcbyf A KAPLEFacility:FTMCStart: 04-27-2023 End: 88-79-0138Zfn Drop offSelissa CASAS [facility] Start: 04-27-2023 End: 82-84-2116flfvkbrmgoVnodn A KAPLEFacility:FTMCStart: 04-25-2023 End: 82-48-9246ggbgljxwfxEufs L SchwabFacility:FT FM BellevueStart: 03-19-2023 End: 38-79-7063txuqohdjdkBcpocVernell Calix MD Work Phone: Hematology/OncologyComment on above:Primary hypercoagulable state (HCC) (Primary Dx); Iron deficiency anemia secondary to blood loss (chronic); Vitamin D deficiency; CVA, old, speech/language deficit; Antiphospholipid antibody syndrome (HCC)Start: 03-19-2023 End: 09-71-6040Vxjtvkpojegm consultation with Song Calix MD Work Phone: SANDUSKYStart: 02-15-2023 End: 64-86-4249lkvhejomdaKndrr A KAPLEFacility:[place] PCStart: 02-15-2023 End: 63-89-0000Bffsmeq encounter procedureScomike CASAS [phone]-IwspoCherrington Hospital Primary [facility] Start: 98-00-5758adlwvtinsoXowrz A KAPLE Facility:[place] PCStart: 12-26-2022 End: 36-37-2747xfoxxmoylfCkfdbeq Grace MisslerFacility:[place] PCStart: 12-26-2022 End: 48-14-2380Ctpxzsd encounter procedureLourdes Garber [phone]-ZuvuuCherrington Hospital [facility] Care Start: 12-22-2022 End: 57-10-8470kebqqrvdhoVawsu Abhyankar MD Work Phone: Hematology/OncologyComment on above:Primary hypercoagulable state (HCC) (Primary Dx); Iron deficiency anemia of ; Iron deficiency anemia secondary to blood loss (chronic); Vitamin D deficiencyStart: 12-22-2022 End: 74-65-2624Hiztlihzzlss consultation with Song Calix MD Work Phone: SANDUSKYStart: 05-79-5808Szxuzqitw encounterKristofer Calix MD Work Phone: Cancer Appts MCComment on above:AppointmentStart: 10-20-2022 End: 21-99-4019Aixirxl encounter procedureScott A KAPLE [phone]-FbfqjCherrington Hospital [facility] Care Start: 09-28-2022 End: 32-93-2220qdrbitkwluKzpvlVernell Calix MD Work Phone: Hematology/OncologyComment on above:Primary hypercoagulable state (HCC); CVA, old, speech/language deficit; Cerebral hyponatremiaStart: 09-28-2022 End: 40-24-5720Sijrtlbqgvhb consultation with Song Calix MD Work Phone: SANDUSKYStart: 09-26-2022 End: 50-91-1898Bfacdfw encounter procedureKristofer Calix [facility] Start: 94-57-3075Qlwrrjdhx encounterValeri Yeung RN Hematology/OncologyComment on above:OrdersStart: 09-05-2022 End: 04-51-1678Oqilkwe encounter procedureCorey R MONTEZ [facility] Start: 08-07-2022 End: 25-90-6611Zyrpuug encounter procedureCorey R MONTEZ [facility] Start: 07-27-2022 End: 06-26-5137Rgrxcf outpatient visit 25 minutesKristofer Calix MD Work Phone: Hematology/OncologyComment on above:Primary hypercoagulable state (HCC) (Primary Dx); Iron deficiency anemia secondary to blood loss (chronic); CVA, old, speech/language deficitStart: 82-44-9790EziqjmQcdgb Abhyankar MD Work Phone: Hematology/OncologyComment on above:Refill Request Start: 05-16-2022 End: 64-92-5034jdvfyehaivMQ WILTON FAZIOFacility:D0Zdgxt: 05-10-2022 End: 00-49-6299cffkmpzsuwCY WILTON FAZIOFacility:L5Dcfld: 05-08-2022 End: 15-65-7074Brbigslnyp and management of inpatientDR KALPANA THOMAS Facility:L0Svcde: 05-05-2022 End: 52-90-7403xjcvpoozpwEI KALPANA THOMASFacility:T6Sirge: 05-01-2022 End: 76-36-7001jovesbjbuzAX WILTON FAZIOFacility:Y3Qcwss: 04-28-2022 End: 60-36-2564awuvsfuccpYG WILTON FAZIOFacility:X1Yoclv: 04-24-2022 End: 83-61-0731japjigbgqsFT KALPANA THOMASFacility:G8Wkdad: 04-20-2022 End: 76-34-1916fkspumofexVuulf [address] Stew Work Phone: Hematology/OncologyComment on above:Iron deficiency anemia secondary to blood loss (chronic) (Primary Dx); Iron deficiency anemia of pregnancyStart: 04-19-2022 End: 96-01-0004qsxqphuzaaHZ WILTON FAZIOFacility:D0Aupgj: 04-14-2022 End: 06-76-5360hzgxqyeawfZA WILTON FAZIOFacility:F5Azkxl: 04-07-2022 End: 71-48-0730fsxzaqngyaYO WILTON FAZIOFacility:B4Cncpg: 82-98-6926QcgpkjYtivfSalvador Calix MD Work Phone: Hematology/OncologyComment on above:Refill Request Start: 04-05-2022 End: 21-91-7203pmhygtjgvwTxial 11 Stew Work Phone: Hematology/OncologyComment on above:Iron deficiency anemia secondary to blood loss (chronic) (Primary Dx); Iron deficiency anemia of pregnancyStart: 15-17-5117Vujbvuqlj Foster Gonzalez Hematology/OncologyComment on above:Appointment; Patient Question; Medication Question; OrdersStart: 03-31-2022 End: 36-35-9110ncpzylrvbzJA WILTON FAZIOFacility:K9Vignn: 03-27-2022 End: 49-90-3122jkigrszjqdSugpeVernell Calix MD Work Phone: Hematology/OncologyComment on above:Iron deficiency anemia secondary to blood loss (chronic); Iron deficiency anemia of pregnancyStart: 03-27-2022 End: 97-65-2060Rcjbsea encounter procedureKristofer Calix MD Work Phone: SANDUSKYStart: 25-97-9497Ognkyqemn encounterKristofer Calix MD Work Phone: Cancer Appts MCComment on above:ResultsStart: 03-24-2022 End: 60-42-4886waxlyrgosbGU WILTON FAZIOFacility:D0Andnj: 03-16-2022 End: 72-48-1386dxddtypjmjWQ WILTON FAZIOFacility:X5Kpqjy: 02-24-2022 End: 95-00-8394zvttvaxfuaDD WILTON FAZIOFacility:Y7Umtvd: 02-14-2022 End: 38-04-4263peokbtjiauGO WILTON FAZIOFacility:D2Vcbzk: 01-30-2022 End: 98-57-9641fpyhhajnptEoznpVernell Calix MD Work Phone: Hematology/OncologyComment on above:Primary hypercoagulable state (HCC) (Primary Dx); CVA, old, speech/language deficit; Antiphospholipid antibody syndrome (HCC); Anemia, unspecified typeStart: 01-30-2022 End: 65-24-3439Dlvalky encounter Dionicio Calix MD Work Phone: SANDUSKYStart: 01-24-2022 End: 36-29-3308pedcjgpzokGE WILTON FAZIOFacility:J2Jujwf: 01-24-2022 End: 09-48-5604qqgkqesovlWE WILTON FAZIOFacility:V6Tmyfj: 01-07-2022 End: 98-63-9526auqldnhqkuCT WILTON FAZIOFacility:W1Kkdui: 62-09-9856HqrpywXvbkpmAwilda Pope RN Work Phone: Hematology/OncologyComment on above:Refill Request Start: 12-28-2021 End: 51-94-0977zvkhisryiuNE WILTON FAZIOFacility:T1Fvddf: 11-21-2021 End: 25-27-2137vckajfdhnqAUNUR A KAPLETriHealth Bethesda North Hospitaltart: 11-21-2021 End: 63-17-4242Dfotndsfmr hospital visit by Sean Casas Work Phone: stVZ LaboratoryStart: 11-14-2021 End: 37-83-4066Lfnruwt encounter procedureSDayton Osteopathic Hospital Start: 15-81-5346gotfhgjzhaQQ WILTON FAZIOFacility:H1 Start: 10-25-2021 End: 20-16-4562jfsnnemfckLO WILTON FAZIOFacility:A3Yazkf: 13-09-0876WmjmwgPkwip Nickelson RNHematology/OncologyComment on above:Refill RequestStart: 09-23-2021 End: 46-63-7084qvasvjjtckEU WILTON FAZIOFacility:S8Mogic: 23-31-0256Pqtsujicx encounterMeme Easton RNHematology/OncologyComment on above:Medication QuestionStart: 16-17-6261Hjsckbupy encounterMeme Easton system integration engineer/OncologyComment on above:Patient QuestionStart: 09-01-2021 End: 97-93-2146diuhtvaneeWK WILTON FAZIOFacility:C8Pdfoj: 08-31-2021 End: 92-16-7023Lgydeww encounter Coreen CASAS [facility] Start: 08-29-2021 End: 58-95-9142yfgwquwldsUB WILTON FAZIOFacility:X5Rgbvy: 08-26-2021 End: 72-84-6887hsyurjvpevZX WILTON FAZIOFacility:Y1Oqhrn: 08-24-2021 End: 63-38-1156ofacxsyskdYY WILTON FAZIOFacility:O3Uwikl: 91-83-1530Cdkjfsbiv encounterMeme Easton RNHematology/OncologyComment on above:Patient Question Start: 08-19-2021 End: 03-77-1417Ljmcrsx encounter procedurePERNELL LONGORIA [facility] Start: 08-19-2021 End: 88-74-1292Pjn Drop offPERNELL LONGORIA [facility] Start: 08-19-2021 End: 25-65-9099Bmmqmhj encounter procedurePERNELL LONGORIA [phone]-HwjcjCherrington Hospital [facility] [place] Start: 66-63-1977Tdtbbdcfw encounterKristofer Calix MD Work Phone: Cancer Appts MCComment on above:Future Appointment Start: 08-01-2021 End: 02-09-4691Pcdroci evaluation of patient and reportMa Nurse Delgado Golden Work Phone: Hematology/OncologyComment on above:Infective urethritis (Primary Dx)Start: 28-44-7912Xsmjcdc encounter procedureHaseeb MorelFacility:[facility] BStart: 59-64-5084Daemsas encounter procedure ERIKA LONDONFacility:9459Start: 05-25-2017 End: 07-54-8330BnqhwkeztrMIHJN R [facility] Procedures DateProcedureProcedure DetailPerforming ClinicianStart: 16-37-4118LV OB BPP W NON-STRESSCorey Montez DO Work Phone: Start: 22-99-4192DK OB BPP W NON-STRESSCorey Montez DO Work Phone: Start: 41-56-0786Tdhzn dip stick/tablet rgnt non-auto w/o micrscpCorey Montez DO Work Phone: Start: 33-09-8554JW OB BPP W NON-STRESSCorey Montez DO Work Phone: Start: 08-34-9630EJ OB GROWTHCorey Montez DO Work Phone: Start: 48-73-7199HCQ CBC WITH AUTO DIFFCorey Montez DO Work Phone: [phone]: 36-50-1106Cbvjj dip stick/tablet rgnt non-auto w/o micrscpCorey Montez DO Work Phone: Start: 37-89-6590Vbfsz dip stick/tablet rgnt non-auto w/o micrscpCorey Montez DO Work Phone: Start: 87-77-6236Dsojh dip stick/tablet rgnt non-auto w/o micrscpCorey Montez DO Work Phone: Start: 28-41-1646TV OB CERVICAL LENGTHCorey Montez DO Work Phone: Start: 19-42-9408BQV UA (CLEAN/CATCH) [employer] 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 IND.Wilton Montez DO Work Phone: Start: 28-44-8835WCB THYROID STIM HORMONECorey Montez DO Work Phone: Start: 10-65-1506Vnfyi dip stick/tablet rgnt non-auto w/o micrscpCorey Montez DO Work Phone: Start: 52-56-6425Mpbju dip stick/tablet rgnt non-auto w/o micrscpCorey Montez DO Work Phone: Start: 84-52-5337Thwcljf quantitative blood xcpt reagent stripCharles Cortes MD Work Phone: Start: 51-50-0213Tzhcc dip stick/tablet rgnt non-auto w/o micrscpCorey Montez DO Work Phone: Start: 31-89-2469Cvszp of thyroid stimulating hormone tshNot In System Ref ProvStart: 60-19-4200Czvmwbhn screenMukul Noyola MD Work Phone: Start: 41-72-1868Stlr scrn 1+ class nonchromoNot In System Ref ProvStart: 55-11-2929Axuwtazpom glycosylated h9sGiugnpyf Provider ExternalStart: 63-30-4462WFM 1&2 AB/AG SCREEN (P24 AG)Not In System Ref Prov Start: 95-75-8118Xmhj ia hepatitis b surface antigenNot In System Ref ProvStart: 78-86-8514AXUL AND SCREENNot In System Ref ProvStart: 60-68-4150RMV CBC WITH AUTO DIFFCorey Montez DO Work Phone: Start: 29-31-8795Pnznf dip stick/tablet rgnt non-auto w/o micrscpCorey Montez DO Work Phone: Start: 71-18-0130IW OB TRANSVAGINALCorey Montez DO Work Phone: Start: 56-63-4916Zbufu test visual color cmprsn methsCorey Montez DO Work Phone: Start: 85-84-0874YHEMKOMIS VAGINITIS (HTRX)Wilton Montez DO Work Phone: Start: 24-14-5921Lqnom dip stick/tablet rgnt non-auto w/o micrscpCorey Montez DO Work Phone: Start: 39-00-2591DT PELVISCorey Montez DO Work Phone: Start: 39-38-2376Rw uterus limited 1/> fetusesCorey Montez DO Work Phone: Start: 34-94-3350QZF CBC WITH AUTO DIFFCorey Montez DO Work Phone: Start: 62-04-4298WEW IMMUNOGLOBULIN GCorey Montez DO Work Phone: Start: 35-22-5982NAY IMMUNOGLOBULIN MCorey Montez DO Work Phone: Start: 06-37-6212ZBP MISCELLANEOUS TESTCorey Montez DO Work Phone: Start: 67-22-2631ALN APTTCorey Montez DO Work Phone: Start: 44-36-9256KGJGIO V LEIDEN MUTATIONCorey Montez DO Work Phone: Start: 66-99-5412YIJNW HOMOCYSTEINECorey Montez DO Work Phone: Start: 98-38-9856WVXE FIBRINOGENCorey Montez DO Work Phone: Start: 95-72-9376ASZSBRA C-FUNCTIONALCorey Montez DO Work Phone: Start: 57-94-8597SVYXGLG S-ANTIGENCorey Montez DO Work Phone: Start: 63-51-1067OLUNRR PROTHROMBIN TIME INR W/O COUM Wilton Montez DO Work Phone: Start: 93-87-8909RXE ANTITHROMBIN ACTIVITYCorey Montez DO Work Phone: Start: 66-30-8058Aihcg dip stick/tablet rgnt non-auto w/o micrscpCorey Montez DO Work Phone: Start: 90-88-2144NKN TESTCorey Montez DO Work Phone: Start: 27-98-8914SRM DRUG SCREEN RAPID (URINE)Wilton Montez DO Work Phone: Start: 68-74-6561VN OB TRANSVAGINALCorey Montez DO Work Phone: Start: 04-04-2024 End: 27-44-1919Vtxqr dip stick/tablet rgnt non-auto w/o micrscpCorey Montez DO Work Phone: Start: 01-33-6815Wqdmppc refused by patient Immunization not carried out because of patient decisionNoms NurseStart: 02-89-7003Jnpxwpwm of Products of Conception, External ApproachDR WILTON HERRMANN Start: 06-81-0824Eizm bld gluc mntr dev cleared fda spec home useCcf Provider Start: 15-00-6925Lnylkpsimcm observation [Identifier] in Cervix by Cyto stain Wilton Herrmann DO Work Phone: Start: 11-21-2021 End: 36-76-3241Egvoc-fetoprotein serumScanning Provider ExternalStart: 11-21-2021 End: 06-03-9671WKNBCHW STUDY NON-PROMEDICAScanning Provider ExternalStart: 17-64-8927GCBNOZVHITAMP TESTINGSraubrie Mullins MD Work Phone: Start: 57-36-7082Sgbno depression screening assessment Nevin Golden Work Phone: Start: 92-92-9136UUV CULTUREDHRUV PATELStart: 66-59-6104RXRAWCCUN PATELStart: 29-23-3017KYE CELL COUNT WITH DIFFERENTIALDHRUV PATELStart: 61-16-2088HBYVQVY SIMPSON VIRUS PCRDHRUV PATELStart: 08-30-1318QQCVBYK, CSFDHRUV PATELStart: 81-80-4629WEMCEA BASIC PROTEIN, CSFDHRUV PATELStart: 64-42-7788VWSSVPDGBVB BANDINGDHRUV PATELStart: 49-69-9191ECEPKOQ, CSFDHRUV MONGE Start: 13-01-2083QAPNJHV-INRDHRUV PATELStart: 60-73-8974Aawrrm puncture lumbar diagnosticDHRUV PATELStart: 87-25-0679VPEEEYYJFCJPYUOB ANTIBODY PANELDHRUV MONGE Start: 53-37-9880MMCWIPVSCSF AB IGG, IGM, IGADHRUV PATELStart: 76-71-9780LOEMWUV PATELStart: 87-21-9194TZQGDAEZZYTV, SERUMDHRUV PATELStart: 36-17-1576AMXM ARUP 1DHRUV PATELStart: 54-49-0642TEGEYYTACGD PATELStart: 54-27-7824EUMCFWJXBALW PATELStart: 01-98-3820Ymootp of breastDERIK SIDELL Start: 62-30-9452Xfhhqazzsf of wisdom toothDERIK SIDELL endoscopy for ovarian cysts to drainDERIK SIDELL Vaccine refused by patientCOVID-19 vaccine dose declined( Confirmed )PERNELL SIDELL Plan of Treatment DateCare ActivityDetailAuthorStart: 87-95-3973QWN Vaccine (1 - 1-dose 75+ series)RSV Vaccine (1 - 1-dose 75+ series)[facility]art: 13-60-3095Qemir BMI ScreeningAdult BMI ScreeningUC Health SystemStart: 92-06-1251Jtpqlkv ScreeningTobacco ScreeningUC Health SystemStart: 00-96-2206Pzffvqc ScreeningTobacco ScreeningUC Health SystemStart: 01-05-2026 End: 02-91-2968NS MFM with or without consultUS MFM with or without consult Imaging Routine Multigravida of advanced maternal age in second trimester Antiphospholipid syndrome complicating , antepartum Gestational diabetes mellitus (GDM) in second trimester controlled on oral hypoglycemic drug AMA (advanced maternal age) fdhttywvetiv60+, second trimester Hypothyroidism, unspecified type History of stroke History of loss in prior , currently in second trimester Hypothyroidism affecting in second trimester Family history of autism Hyponatremia Expected: 01/05/2026 (Approximate), Expires: 01/05/2026[employer] Work Phone: comment on above:Expected: 01/05/2026 (Approximate), Expires: 01/05/2026Start: 25-42-4558Vpqaj BMI ScreeningAdult BMI Screening [facility] SystemStart: 94-94-4664Wddoylr ScreeningTobacco Screening [facility] SystemStart: 70-47-9786Puqpe BMI ScreeningAdult BMI Screening [facility] SystemStart: 04-07-2025 End: 79-65-4376Nbislimlhdjm consultation with tnzqoxi1504/07/2025 1:30 PM EST Telemedicine Maternal- Medicine at [facility] [address] [place] [place] [phone] Roxana Mays PA-C [address] [place] [address] [facility] at [facility] HospitalStart: 03-17-2025 End: 14-47-8856Bwyywbsnlhnm consultation with oejlebq3803/17/2025 8:30 AM EST Telemedicine [facility], A Department of [address] [address] Sam Callahan MD [address] [address] [facility], A Department of [facility] HospitalStart: 03-10-2025 End: 23-78-0742Iexqozi encounter fqbeeyisn74/11/2025 9:50 AM EST Routine NOMJaylan COLVIN [address] [place], [id number] Wilton Herrmann DO [address] [place] [address] NOMS Piyush OBGYNStart: 03-10-2025 End: 12-11-1596Rtzeopdllxew consultation with mqgcrlt4303/10/2025 8:00 AM EST Telemedicine Maternal- Medicine at [facility] [address] [place] [place] [phone] Sana Palma MD [address] [place] [address] [facility]: 69-05-7087HKM ( or age 60+ yrs) (1 - Risk 1-dose series)RSV ( or age 60+ yrs) (1 - Risk 1- dose series)[facility] SystemStart: 03-02-2025 End: 06-26-9868Dszijo-up lxbolketk18/03/2025 11:30 AM EST Visit (SP) Office Hematology/Oncology [address] [place] [address] Katherine Negrete APRN.BRIDGE SAW OPERATOR [address] [place] [address] 2 month follow upHematology/OncologyComment on above:2 month follow upStart: 03-02-2025 End: 27-35-7161Ivetlfk encounter iutuosdax57/03/2025 11:15 AM EST Office Visit [facility] [address] [place] [address] labNortHutzel Women's Hospital LaboratoryComment on above:labStart: 02-23-2025 End: 32-69-9056Agclmkp encounter mjywvcxzd89/27/2025 9:00 AM EDT Routine NOMJaylan ROBBGYN [address] [facility] [address] [place], [phone] Wilton Herrmann DO [address] [facility] [place] [address] SHILOH [place] OBGYNStart: 02-18-2025 End: 92-27-7896ZJC W Auto Differential panel - BloodCOMPLETE BLOOD COUNT AND DIFFERENTIAL Lab Routine 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) Vitamin D deficiency Primary hypercoagulable state (HCC) Expected: 02/18/2025, Expires: 05/20/2025leveland ClinicComment on above:Expected: 02/18/2025, Expires: 05/20/2025Start: 02-18-2025 End: 83-95-4140Spicauqajgkla metabolic 2000 panel - Serum or PlasmaCOMPREHENSIVE METABOLIC PANEL Lab Routine Antiphospholipid antibody positive Iron deficiency anemiasecondary to blood loss (chronic) Vitamin D deficiency Primary hypercoagulable state (HCC) Expected: 02/18/2025, Expires: 05/20/2025leveland ClinicComment on above:Expected: 02/18/2025, Expires: 05/20/2025Start: 02-16-2025 End: 20-95-7412Viltuez encounter procedureProMedica Rheumatology, A Department of [facility]ertart: 95-28-5160Wreamujud for malignant neoplasm of cervixNOMS HealthcareStart: 02-09-2025 End: 27-57-9897UF biophysical profile w non stress testUS biophysical profile w non stress test Imaging Routine Third trimester (HHS-HCC) 28 weeks gestation of (HHS-HCC) Anemia complicating childbirth (HHS-HCC) Anticoagulant long-term use Antiphospholipid antibody positive Blood pressure elevated without history of HTN Coagulation defect, unspecified (HHS-HCC) Expected: 02/09/2025 (Approximate), Expires: 08/10/2025 [facility] HealthcareComment on above:Expected: 02/09/2025 (Approximate), Expires: 08/10/2025Start: 02-09-2025 End: 71-81-3776AJ for pregnancyUS OB follow up transabdominal approach Imaging Routine Third trimester (HHS-HCC) 28 weeks gestation of (HHS-HCC) Anemia complicating childbirth (HHS-HCC) Anticoagulant long-term use Antiphospholipid antibody positive Blood pressure elevated without history of HTN Coagulation defect, unspecified (HHS-HCC) Expected: 02/09/2025, Expires: 06/12/2025NOMS HealthcareComment on above:Expected: 02/09/2025, Expires: 06/12/2025Start: 02-09-2025 End: 11-23-3337Lbydoav encounter rwuulecdh65/13/2025 10:30 AM EDT Routine SHILOH COLVIN [address] [place] [address] Wilton Herrmann DO [address] [place] [address] SHILOH HAMILTONtart: 02-06-2025 End: 26-92-0735Yzorjtjfjgbl consultation with bpewttu9802/06/2025 2:00 PM EDT Telemedicine Maternal- Medicine at [facility] [address] [place] [address] Mukul Noyola MD [address] [facility] [address] [place] [address] [facility]: 02-05-2025 End: 72-70-4955Hyryekq encounter kpszcvhiy42/09/2025 1:00 PM EDT Appointment [facility] [place] [address] [facility] [address] [place] [address] Maternal Medicine [place]stonStart: 02-01-2025 End: 18-50-2406Ktvf complete W/O contrastEcho complete W/O contrast Echocardiography Routine 22 weeks gestation of Antiphospholipid syndrome complicating , antepartum Multigravida of advanced maternal age in second trimester Expected: 02/01/2025 (Approximate), Expires: 01/01/2026 [facility] Work Phone: comment on above:Expected: 02/01/2025 (Approximate), Expires: 01/01/2026Start: 01-19-2025 End: 01-30-8137Hltsfre encounter hfmvkbfyl31/22/2025 9:00 AM EDT Routine NOMJaylan COLVIN [address] [facility] [facility] [address] [place], [id number] Wilton Herrmann DO [address] [facility] [place] [address] SHILOH HAMILTONtart: 01-13-2025 End: 02-34-5553Shmdapuvagji consultation with myzmamx6401/13/2025 10:00 AM EDT Telemedicine Maternal- Medicine at [facility] [address] [facility] [place] [address] Roxana Mays, PAPilyC [address] [place] [address], [id number] [facility]: 01-05-2025 End: 95-42-6492Pbdbigy encounter fxlxwjnep34/08/2025 2:40 PM EDT Routine NOMS Piyush OBGYN [address] [facility] [address] [place], [id number] Wilton Herrmann DO [address] [place] [address] NOMS Piyush OBGYNStart: 01-05-2025 End: lead ECGECG 12 lead unit performed ECG Routine Thyroid disease Gestational diabetes mellitus (GDM), antepartum, gestational diabetes method of control unspecified (HHS-HCC) Multigravida of advanced maternal age in second trimester (HHS-HCC) Lightheaded Dizziness Expected: 01/05/2025 (Approximate), Expires:01/05/2026N[facility] HealthcareComment on above:Expected: 01/05/2025 (Approximate), Expires: 01/05/2026Start: 01-05-2025 End: 26-66-0835Teewojkszlgfde 2D completeEchocardiogram 2D complete Echocardiography Routine Thyroid disease Gestational diabetes mellitus (GDM), antepartum, gestational diabetes method of control unspecified (HHS-HCC) Multigravida of advanced maternal age in second trimester (HHS-HCC) Lightheaded Dizziness Expected: 01/05/2025 (Approximate), Expires: 01/05/2027[facility] Work Phone: comment on above:Expected: 01/05/2025 (Approximate), Expires: 01/05/2027Start: 01-01-2025 End: 80-79-1285Qjzwfvdfupmg consultation with fugiqjo9401/01/2025 2:30 PM EDT Telemedicine [facility] [place] [address] [facility] [address] [place] [address] Mukul Noyola MD [address] [facility] [place] [address] [facility] Medicine [place]Start: 01-01-2025 End: 67-17-8504FM MFM with or without consultUS MFM with [...] on above:Expected: 01/01/2025, Expires: 01/01/2026Start: 01-01-2025 End: 39-65-6546Htoojry encounter oweaqpekw58/04/2025 1:00 PM EDT Appointment [facility] [place] [address] [address] Maternal Medicine [place]Start: 12-29-2024 COVID-19 Vaccine ( season)COVID-19 Vaccine ( season)[facility] CareStart: 53-44-6379Vbegnxrkc vaccinationMercy Health [facility] Regional Medical Centertart: 12-24-2024 End: 96-84-5284ZSM W Auto Differential panel - BloodCOMPLETE BLOOD COUNT AND DIFFERENTIAL Lab Routine Primary hypercoagulable state (HCC) CVA, old, spee ch/language deficit Cerebral hyponatremia Personal history of TIA (transient ischemic attack) Expected: 12/24/2024, Expires: 03/25/2025[facility] Work Phone: Comment on above:Expected: 12/24/2024, Expires: 03/25/2025Start: 12-24-2024 End: 09-93-5231Gohwhhuuh (Vitamin B12) [Mass/volume] in Serum or PlasmaVITAMIN B12 Lab Routine Primary hypercoagulable state (HCC) CVA, old, speech/language deficit Cerebral hyponatremia Personal history of TIA (transient ischemic attack) Expected: 12/24/2024, Expires: 03/25/2025[facility] ClinicComment on above:Expected: 12/24/2024, Expires: 03/25/2025Start: 12-24-2024 End: 27-08-6644Dvgtgqoossjbz metabolic 2000 panel - Serum or PlasmaCOMPREHENSIVE METABOLIC PANEL Lab Routine Primary hypercoagulable state (HCC) CVA, old, speech/language deficit Cerebral hyponatremia Personal history of TIA (transient ischemic attack) Expected: 12/24/2024, Expires: 03/25/2025[facility] Comment on above:Expected: 12/24/2024, Expires: 03/25/2025Start: 12-24-2024 End: 73-04-3122Atxymyxh [Mass/volume] in Serum or PlasmaFERRITIN Lab Routine Primary hypercoagulable state (HCC) CVA, old, speech/language deficit Cerebral hyponatremia Personal history of TIA (transient ischemic attack) Expected: 12/24/2024, Expires: 03/25/2025[facility] ClinicComment on above:Expected: 12/24/2024, Expires: 03/25/2025Start: 12-24-2024 End: 74-59-3243Czsx and Iron binding capacity panel - Serum or PlasmaIRON AND TIBC Lab Routine Primary hypercoagulable state (HCC) CVA, old, speech/language deficit Cerebral hyponatremia Personal history of TIA (transient ischemic attack) Expected: 12/24/2024, Expires: 03/25/2025[facility] ClinicComment on above:Expected: 12/24/2024, Expires: 03/25/2025Start: 12-23-2024 End: 793306-nidiwudpascefn D3 [Mass/volume] in Serum or PlasmaVITAMIN D 25 HYDROXY Lab Routine 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) Vitamin D deficiency Expected: 12/23/2024, Expires: 03/24/2025[facility] Work Phone: Comment on above:Expected: 12/23/2024, Expires: 03/24/2025Start: 12-22-2024 End: 04-26-8168Xzgvpy-up /25/2025 1:30 PM EDT Visit (SP) Office Hematology/Oncology [address] [place], [place] [phone] Katherine Negrete PORTFOLIO CONSULTANT.BRIDGE SAW OPERATOR [address] [place] [address] 8 week follow up labHematology/OncologyComment on above:8 week follow up labStart: 12-22-2024 End: 67-15-3029Zellocv encounter /25/2025 1:15 PM EDT Office Visit [facility] [address] [place], [place] [address] [address] 8 week follow up labNortHutzel Women's Hospital LaboratoryComment on above:8 week follow up labStart: 12-17-2024 End: 85-25-1353Hjqystugpnat consultation with eoizpqo2112/17/2024 1:30 PM EDT Telemedicine Maternal- Medicine at [facility] [address] [place] [address] Alisa Saba, PORTFOLIO CONSULTANT-BRIDGE SAW OPERATOR [address] [place] [address] [facility]: 12-11-2024 End: 56-04-7101Aawsmws encounter zludsggll04/14/2025 9:10 AM EDT Routine NOMS Piyush COLVIN [address] [place], [id number] Wilton Herrmann DO [address] [place] [address] NOMS Piyush ROBBGYNStart: 12-03-2024 End: 56-81-4071Gnrmkmenbllf consultation with yakmfis3212/03/2024 2:00 PM EDT Telemedicine Maternal- Medicine at [facility] [address] [place] [phone] Alisa Saba, VICTOR HUGO-BRIDGE SAW OPERATOR [address] [place] [address] [facility]: 11-20-2024 End: 91-44-0048Vnyzf fetoprotein, maternalAlpha fetoprotein, maternal Lab Routine Second trimester ([facility]) Expected: 11/20/2024 (Approximate), Expires: 01/21/2025[facility] HealthcareComment on above:Expected: 11/20/2024 (Approximate), Expires: 01/21/2025Start: 11-20-2024 End: 59-96-9981Ygttvep encounter frygmzmqg81/24/2025 10:10 AM EDT Routine NOMS BCP OB [address] [place] [address] Wilton Herrmann, DO [address] [facility] [place] [address] NOMS BCP OBStart: 11-19-2024 End: 24-79-1717cdvzbemzjy93/23/2025 9:30 AM EDT Support Visit Maternal- Medicine at [facility] [address] [place] [phone] Lorena Enciso, RN [address] [facility], [address] [place] [address], [place] [address] Stephanie Quiros LD Fischer, Kelli, JERONIMO [address] [facility] [place], [address] [facility] [place] [address] [facility]: 11-12-2024 End: 38-21-0661JJ MFM with or without consultUS MFM with or without consult Imaging Routine Gestational diabetes mellitus (GDM), antepartum, gestational diabetes method of control unspecified Expected: 11/12/2024 (Approximate), Expires: 10/13/2025[facility] Work Phone: comment on above:Expected: 11/12/2024 (Approximate), Expires: 10/13/2025Start: 10-30-2024 End: 55-58-4715Kexayhi encounter bbzkdhagj94/03/2025 10:40 AM EDT Routine NOMS BCP OB [address] [facility] [place] [address] Wilton Herrmann, DO [address] [place] [address] NOMS BCP OBStart: 10-30-2024 End: 24-12-1319Yznwcnv encounter aerezvvgm64/03/2025 9:30 AM EDT Routine NOMS BCP OB [address] [place] [address] Wilton Herrmann, DO [address] [place] [address] ArrivedNOMS BCP OBComment on above: ArrivedStart: 10-28-2024 End: 47-23-1190Ngddvd-up ddceyyupn16/01/2025 2:30 PM EDT Visit (SP) Office Hematology/Oncology [address] [place], [place] [phone] Katherine Negrete, PORTFOLIO CONSULTANT.BRIDGE SAW OPERATOR [address] [place] [address] 3 month follow upHematology/OncologyComment on above:3 month follow upStart: 10-28-2024 End: 85-09-9594Npwbxsz encounter mxqltiyyu16/01/2025 2:15 PM EDT Office Visit [facility] [address] [place] [address] labs - patient prefers to come same dayNortHorsham Clinic [facility] LaboratoryComment on above:labs - patient prefers to come same day Start: 10-27-2024 End: 51-65-2848Nwtrqgq encounter kfefdkobi79/30/2025 9:20 AM EDT Office Visit [facility] OB [address] [facility] [facility] [place] [phone] Wilton Herrmann, DO [address] [facility] [place] [address] [facility] OBStart: 10-20-2024 End: 56-61-4879Ktivrtoedekw / ancillary services xnesllcvec01/23/2025 1:00 PM EDT Ancillary Procedure [facility] OB [address] [facility] [facility] [place] [address] NOMS BCP OBStart: 10-10-2024 End: 64-12-6432Edpgdj-up zidcuvphw69/13/2025 10:40 AM EDT Visit (SP) Office Hematology/Oncology [address] [place] [address] Kristofer Calix MD [address] [place] [address] 3 month follow upHematology/OncologyComment on above:3 month follow upStart: 10-10-2024 End: 95-95-1808Azgjhdt encounter /13/2025 10:15 AM EDT Office Visit [facility] [address] [place] [address] labs - patient prefers to come same dayTerrebonne General Medical Center LaboratoryComment on above:labs - patient prefers to come same day Start: 10-02-2024 End: 52-22-9897YNQ/RhABO/Rh Lab Routine Missed menses , unspecified gestational age Expected: 10/02/2024 (Approximate), Expires: 10/02/2025N[facility] HealthcareComment on above:Expected: 10/02/2024 (Approximate), Expires: 10/02/2025Start: 10-02-2024 End: 66-40-4977Ukztb type and Indirect antibody screen panel - BloodType and screen Lab Routine Missed menses , unspecified gestational age Expected: 10/02/2024 (Approximate), Expires: 10/02/2025[facility] Work Phone: comment on above:Expected: 10/02/2024 (Approximate), Expires: 10/02/2025Start: 10-02-2024 End: 91-43-6191Sumkf of abuse panel - Urine by Screen methodRapid drug screen, urine Lab Routine , unspecified gestational age Encounter for supervision of normal first in first trimester Expected: 10/02/2024 (Approximate), Expires: 10/02/2025[facility] HealthcareComment on above:Expected: 10/02/2024 (Approximate), Expires: 10/02/2025Start: 10-02-2024 End: 29-20-4504bbxwidjqgr54/05/2025 1:00 PM EDT Initial [facility] OB [facility] [place] [address] YMPR BCP OBStart: 10-02-2024 End: 14-76-3550Gasmufgdkwgv / ancillary services ibispcspuz03/05/2025 12:30 PM EDT Ancillary Procedure [facility] OB [facility] [address] [place], [place] [address] VSTR BCP OBStart: 08-27-2024 End: 38-95-3946Mxnbzq-up xvhojjrrw19/30/2025 2:00 PM EDT Visit (SP) Office Hematology/Oncology [address] [place] [address] [place] [place], [place] [phone] Kristofer Calix MD [address] [place] [address] 3 month follow upHematology/OncologyComment on above:3 month follow upStart: 08-27-2024 End: 69-61-9885Xqjovdz encounter ftjbazdqh32/30/2025 1:45 PM EDT Office Visit [facility] [address] [place] [address] labs - patient prefers to come same dayTerrebonne General Medical Center LaboratoryComment on above:labs - patient prefers to come same day Start: 08-26-2024 End: 422206-svfosfupctrypu D3 [Mass/volume] in Serum or PlasmaVITAMIN D 25 HYDROXY Lab Routine 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 Vitamin D deficiency Expected: 08/26/2024, Expires: 11/25/2024[facility] ClinicComment on above: Expected: 08/26/2024, Expires: 11/25/2024Start: 08-26-2024 End: 61-76-0895JZQ W Auto Differential panel - BloodCOMPLETE BLOOD COUNT AND DIFFERENTIAL Lab Routine 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 Vitamin D deficiency Expected: 08/26/2024, Expires: 11/25/2024[facility] Work Phone: Comment on above:Expected: 08/26/2024, Expires: 11/25/2024Start: 08-26-2024 End: 74-02-9227Phytxpjfe (Vitamin B12) [Mass/volume] in Serum or PlasmaVITAMIN B12 Lab Routine 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 Vitamin D deficiency Expected: 08/26/2024, Expires: 11/25/2024[facility] ClinicComment on above: Expected: 08/26/2024, Expires: 11/25/2024Start: 08-26-2024 End: 35-78-2816Ntwoaksndgjrv metabolic 2000 panel - Serum or PlasmaCOMPREHENSIVE METABOLIC PANEL Lab Routine Antiphospholipid antibody positive Iron deficiency anemiasecondary to blood loss (chronic) Malaise and fatigue Vitamin D deficiency Expected: 08/26/2024, Expires: 11/25/2024[facility] ClinicComment on above: Expected: 08/26/2024, Expires: 11/25/2024Start: 08-26-2024 End: 65-16-8530Gedzefta [Mass/volume] in Serum or PlasmaFERRITIN Lab Routine 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) Malaise and fatigue Vitamin D deficiency Expected: 08/26/2024, Expires: 11/25/2024[facility] ClinicComment on above:Expected: 08/26/2024, Expires: 11/25/2024Start: 08-26-2024 End: 60-34-9337Skym and Iron binding capacity panel - Serum or PlasmaIRON AND TIBC Lab Routine 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 Vitamin D deficiency Expected: 08/26/2024, Expires: 11/25/2024[facility] ClinicComment on above: Expected: 08/26/2024, Expires: 11/25/2024Start: 08-26-2024 End: 19-94-3995Ycxavubdiio [Units/volume] in Serum or PlasmaTHYROID STIMULATING HORMONE Lab Routine Antiphospholipid antibody positive 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) Malaise and fatigue Vitamin D deficiency Expected: 08/26/2024, Expires: 11/25/2024[facility] ClinicComment on above: Expected: 08/26/2024, Expires: 11/25/2024Start: 07-24-2024 End: 66-28-2062SprycecmvlprHauehwyyxqwu Lab Routine Irregular menstrual cycle Expected: 07/24/2024 (Approximate), Expires: 07/24/2025[facility] Work Phone: comment on above:Expected: 07/24/2024 (Approximate), Expires: 07/24/2025Start: 78-60-5321TFpX,Tdap and Td Vaccines (2 - Td or Tdap) DTaP,Tdap and Td Vaccines (2 - Td or Tdap)[facility] SystemGlaukos SystemStart: 65-89-1386KGiW/Tdap/Td vaccine (2 - Td or Tdap)DTaP/Tdap/Td vaccine (2 - Td or Tdap)[facility]ITALStart: 05-81-9038Fggfg microalbumin profile [facility]ertart: 06-23-2024 End: 18-47-7483VA PelvisUS Pelvis w/ TV Imaging Routine Vaginal bleeding Vaginal discharge Pelvic pain in female Expected: 06/23/2024, Expires: 06/23/2025[facility] HealthcareComment on above:Expected: 06/23/2024, Expires: 06/23/2025Start: 06-02-2024 End: 17-30-8445Gwejauo encounter vxazhlpzg84/03/2025 11:20 AM EST Office Visit [facility] [address] [place] [phone] Wilton Herrmann, [address] [place] [address] [facility] OBStart: 05-21-2024 End: 66-87-3718Clohmb-up nsudvelst35/22/2025 2:20 PM EST Visit (SP) Office Hematology/Oncology [address] [place], [place] [phone] Kristofer Calix MD [address] [place] [address] 3 month follow up with labHematology/OncologyComment on above:3 month follow up with labStart: 05-21-2024 End: 76-34-0593Tvgpaih encounter lekmqyrxv93/22/2025 2:00 PM EST Office Visit [facility] [address] [place] [address] 3 month follow up with labNortHutzel Women's Hospital LaboratoryComment on above:3 month follow up with labStart: 05-06-2024 End: 86-24-9767RS for pregnancyNOMS Healthcare Work Phone: comment on above:Expected: 05/06/2024, Expires: 05/06/2025Start: 05-06-2024 End: 84-87-9843Tifzrxq encounter xtoyvbvfa62/07/2025 1:50 PM EST Routine [facility] [address] [place] [phone] Wilton Herrmann [address] [place] [address] [facility] OBStart: 04-09-2024 End: 69-57-7600Fbsnag-up encounterHematology/OncologyComment on above:3 month follow up with labStart: 04-09-2024 End: 51-84-6824Qpnxyoe encounter procedureTerrebonne General Medical Center LaboratoryComment on above:3 month follow up with labStart: 04-04-2024 End: 34-54-2059SGF/RhABO/Rh Lab Routine Missed menses , unspecified gestational age Expected: 04/04/2024 (Approximate), Expires: 04/04/2025[facility] HealthcareComment on above:Expected: 04/04/2024 (Approximate), Expires: 04/04/2025Start: 04-04-2024 End: 88-78-8706Qqcbm type and Indirect antibody screen panel - BloodType and screen Lab Routine Missed menses , unspecified gestational age Expected: 04/04/2024 (Approximate), Expires: 04/04/2025[facility] Work Phone: comment on above:Expected: 04/04/2024 (Approximate), Expires: 04/04/2025Start: 04-04-2024 End: 97-10-9551Qdkda of abuse panel - Urine by Screen methodRapid drug screen, urine Lab Routine , unspecified gestational age Encounter for supervision of normal first in first trimester Expected: 04/04/2024 (Approximate), Expires: 04/04/2025[facility] HealthcareComment on above:Expected: 04/04/2024 (Approximate), Expires: 04/04/2025Start: 04-04-2024 End: 38-84-5723NF Pelvis transvaginalUS OB transvaginal Imaging Routine Missed menses Expected: 04/04/2024 (Approximate), Expires: 04/04/2025[facility] Healthcare Comment on above:Expected: 04/04/2024 (Approximate), Expires: 04/04/2025Start: 04-02-2024 End: 080428-arkqdbtpkekcce D3 [Mass/volume] in Serum or PlasmaVITAMIN D 25 HYDROXY Lab Routine Iron deficiency anemia secondary to blood loss (chronic) Vitamin Ddeficiency Malaise and fatigue Expected: 04/02/2024 (Approximate), Expires: 07/02/2024[facility] ClinicComment on above:Expected: 04/02/2024 (Approximate), Expires: 07/02/2024Start: 04-02-2024 End: 10-43-3373PZW W Auto Differential panel - BloodCOMPLETE BLOOD COUNT AND DIFFERENTIAL Lab Routine Iron deficiency anemia secondary to blood loss (ch ronic) Vitamin D deficiency Malaise and fatigue Expected: 04/02/2024 (Approximate), Expires: 01/01/2025[facility] ClinicComment on above:Expected: 04/02/2024 (Approximate), Expires: 01/01/2025Start: 04-02-2024 End: 71-85-2461Nvepnfuxk (Vitamin B12) [Mass/volume] in Serum or PlasmaVITAMIN B12 Lab Routine Iron deficiency anemia secondary to blood loss (chronic) Vitamin D deficiency Malaise and fatigue Expected: 04/02/2024 (Approximate), Expires: 01/01/2025[facility] ClinicComment on above:Expected: 04/02/2024 (Approximate), Expires: 01/01/2025Start: 04-02-2024 End: 38-64-8128Noyicmljmuntm metabolic 2000 panel - Serum or PlasmaCOMPREHENSIVE METABOLIC PANEL Lab Routine Iron deficiency anemia secondary to blood loss (chronic) Vitamin D deficiency Malaise and fatigue Expected: 04/02/2024 (Approximate), Expires: 01/01/2025[facility] ClinicComment on above:Expected: 04/02/2024 (Approximate), Expires: 01/01/2025Start: 04-02-2024 End: 41-33-3421Lgbbfkbl [Mass/volume] in Serum or PlasmaFERRITIN Lab Routine Iron deficiency anemia secondary to blood loss (chronic) Vitamin D deficiency M alaise and fatigue Expected: 04/02/2024 (Approximate), Expires: 01/01/2025 [facility]:Expected: 04/02/2024 (Approximate), Expires: 01/01/2025Start: 04-02-2024 End: 28-20-1934Ehouvm [Mass/volume] in Serum or PlasmaFOLATE, SERUM Lab Routine Iron deficiency anemia secondary to blood loss (chronic) Vitamin D deficiency Malaise and fatigue Expected: 04/02/2024 (Approximate), Expires: 01/01/2025 [facility]Comment on above:Expected: 04/02/2024 (Approximate), Expires: 01/01/2025Start: 04-02-2024 End: 50-83-6059Acvr and Iron binding capacity panel - Serum or PlasmaIRON AND TIBC Lab Routine Iron deficiency anemia secondary to blood loss (chronic) Vitamin D deficiency Malaise and fatigue Expected: 04/02/2024 (Approximate), Expires: 01/01/2025[facility] HospitalComment [facility]:Expected: 04/02/2024 (Approximate), Expires: 01/01/2025Start: 04-02-2024 End: 33-64-6871Doqzstojzpy [Units/volume] in Serum or PlasmaTHYROID STIMULATING HORMONE Lab Routine Iron deficiency anemia secondary to blood loss (chronic) Vit vogel D deficiency Malaise and fatigue Expected: 04/02/2024 (Approximate), Expires: 07/02/2024[facility] Work Phone: Comment on above:Expected: 04/02/2024 (Approximate), Expires: 07/02/2024Start: 01-05-2024 End: 28-04-8599NIP W Auto Differential panel - BloodCOMPLETE BLOOD COUNT AND DIFFERENTIAL Lab Routine Iron deficiency anemia secondary to blood loss (ch ronic) Vitamin D deficiency Malaise and fatigue Expected: 01/05/2024 (Approximate), Expires: 01/01/2025[facility] ClinicComment on above:Expected: 01/05/2024 (Approximate), Expires: 01/01/2025Start: 01-05-2024 End: 57-16-6183Sheisnhnnbksc metabolic 2000 panel - Serum or PlasmaCOMPREHENSIVE METABOLIC PANEL Lab Routine Iron deficiency anemia secondary to blood loss (chronic) Vitamin D deficiency Malaise and fatigue Expected: 01/05/2024 (Approximate), Expires: 5[facility] ClinicComment on above:Expected: 01/05/2024 (Approximate), Expires: 01/01/2025Start: 01-02-2024 End: 43-24-3978Hovbpc-up gayyjjbws70/04/2024 1:45 PM EDT Visit (SP) Office Hematology/Oncology [address] [place], [place] [phone] Kristofer Calix MD [address] [place] [address] 8 WEEK FOLLOW UPHematology/OncologyComment on above:8 WEEK FOLLOW UPStart: 01-02-2024 End: 82-50-8369Aunmxfz encounter smrsdhcov40/04/2024 1:30 PM EDT Office Visit [facility] [address] [place] [address] 8 WEEK FOLLOW UPNortHutzel Women's Hospital LaboratoryComment on above:8 WEEK FOLLOW UPStart: 85-55-5199Xefkn-19 Vaccine ( season)Covid-19 Vaccine ( season)[facility] Centertart: 79-85-9057Wfpch-19 Vaccine ( season)Covid-19 Vaccine ( season)[facility] Centertart: 76-57-8626Bgbtplmxx vaccinationKettering Health Dayton Start: 11-29-2023 End: 46-56-9129nzpursqmsf11/01/2024 1:30 PM EDT Infusion Center Hematology/Oncology [address] [place] [address] VENOFER 300Hematology/OncologyComment on above:VENOFER 300Start: 11-22-2023 End: 25-13-4628hjdwccesgh77/25/2024 1:30 PM EDT Infusion Center Hematology/Oncology [address] [place] [address] VENOFER 300Hematology/OncologyComment on above:VENOFER 300Start: 11-15-2023 End: 74-90-5664gmbgaxnwtz13/18/2024 1:30 PM EDT Infusion Center Hematology/Oncology [address] [place] [address] [place] [address] VENOFER 300Hematology/OncologyComment on above:VENOFER 300Start: 09-13-2023 End: 53-42-169824231740-hhdyqyhhmmhwjg D3 [Mass/volume] in Serum or PlasmaVITAMIN D 25 HYDROXY Lab Routine Vitamin D deficiency 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) Expected: 09/13/2023 (Approximate), Expires: 12/13/2023[facility] Work Phone: Comment on above:Expected: 09/13/2023 (Approximate), Expires: 12/13/2023Start: 09-13-2023 End: 81-06-7045Qvqdnjr.ionized [Moles/volume] in BloodCALCIUM IONIZED BLOOD Lab Routine Vitamin D deficiency 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) Expected: 09/13/2023 (Approximate), Expires: 12/13/2023 [facility] Work Phone: Comment on above:Expected: 09/13/2023 (Approximate), Expires: 12/13/2023Start: 09-13-2023 End: 26-03-7293DLO W Auto Differential panel - BloodCBC + DIFF Lab Routine Vitamin D deficiency 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) Expected: 09/13/2023 (Approximate), Expires: 06/15/2024[facility] Work Phone: Comment on above:Expected: 09/13/2023 (Approximate), Expires: 06/15/2024Start: 09-13-2023 End: 94-55-8564Ncsjdvhcw (Vitamin B12) [Mass/volume] in Serum or PlasmaVITAMIN B12 BLOOD Lab Routine Vitamin D deficiency 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) Expected: 09/13/2023 (Approximate), Expires: 06/15/2024[facility] Work Phone: Comment on above:Expected: 09/13/2023 (Approximate), Expires: 06/15/2024Start: 09-13-2023 End: 17-96-0692Xfrqecyxvvvox metabolic 2000 panel - Serum or PlasmaCOMP METABOLIC PANEL Lab Routine Vitamin D deficiency 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) Expected: 09/13/2023 (Approximate), Expires: 06/15/2024[facility] Work Phone: Comment on above:Expected: 09/13/2023 (Approximate), Expires: 06/15/2024Start: 09-13-2023 End: 90-48-1617Ccdiqkdg [Mass/volume] in Serum or PlasmaFERRITIN BLD Lab Routine Vitamin D deficiency 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) Expected: 09/13/2023 (Approximate), Expires: 06/15/2024[facility] Work Phone: Comment on above:Expected: 09/13/2023 (Approximate), Expires: 06/15/2024Start: 09-13-2023 End: 01-86-1756Rwwnsn [Mass/volume] in Serum or PlasmaFOLATE SERUM Lab Routine Vitamin D deficiency 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) Expected: 09/13/2023 (Approximate), Expires: 06/15/2024[facility] Work Phone: Comment on above:Expected: 09/13/2023 (Approximate), Expires: 06/15/2024Start: 09-13-2023 End: 20-71-9363Tjmv and Iron binding capacity panel - Serum or PlasmaIRON + TIBC Lab Routine Vitamin D deficiency 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) Expected: 09/13/2023 (Approximate), Expires: 06/15/2024 [facility] Work Phone: Comment on above:Expected: 09/13/2023 (Approximate), Expires: 06/15/2024Start: 09-13-2023 End: 49-35-2873Kssgbagbwz.intact [Mass/volume] in Serum or PlasmaPTH INTACT BLD Lab Routine Vitamin D deficiency 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) Expected: 09/13/2023 (Approximate), Expires: 12/13/2023 [facility] Work Phone: Comment on above:Expected: 09/13/2023 (Approximate), Expires: 12/13/2023Start: 06-15-2023 End: 097645-jmovwlbofajbzi D3 [Mass/volume] in Serum or PlasmaVITAMIN D 25 HYDROXY Lab Routine Vitamin D deficiency Expected: 06/15/2023 (Approximate), Expires: 09/14/2023[facility] Work Phone: Comment on above:Expected: 06/15/2023 (Approximate), Expires: 09/14/2023Start: 06-15-2023 End: 47-92-1508Fmfxkdu.ionized [Moles/volume] in BloodCALCIUM IONIZED BLOOD Lab Routine Vitamin D deficiency Hypercalcemia Expected: 06/15/2023 (Approximate), Expires: 09/14/2023[facility] Work Phone: Comment on above:Expected: 06/15/2023 (Approximate), Expires: 09/14/2023Start: 06-15-2023 End: 87-95-2804LMG W Auto Differential panel - BloodCBC + DIFF Lab Routine Iron deficiency anemia secondary to blood loss (chronic) Expected: 06/15/2023 (Approximate), Expires: 06/12/2024[facility] Work Phone: Comment on above:Expected: 06/15/2023 (Approximate), Expires: 06/12/2024Start: 06-15-2023 End: 36-77-8880Zchzyudfj (Vitamin B12) [Mass/volume] in Serum or PlasmaVITAMIN B12 BLOOD Lab Routine Iron deficiency anemia secondary to blood loss (chronic) Expected: 06/15/2023 (Approximate), Expires: 06/12/2024[facility] Work Phone: Comment on above:Expected: 06/15/2023 (Approximate), Expires: 06/12/2024Start: 06-15-2023 End: 43-71-5809Kcokbnklinnho metabolic 2000 panel - Serum or PlasmaCOMP METABOLIC PANEL Lab Routine Iron deficiency anemia secondary to blood loss (chronic) Expected:06/15/2023 (Approximate), Expires: 06/12/2024[facility] Work Phone: Comment on above:Expected: 06/15/2023 (Approximate), Expires: 06/12/2024Start: 06-15-2023 End: 25-51-1572Naifzyzy [Mass/volume] in Serum or PlasmaFERRITIN BLD Lab Routine Iron deficiency anemia secondary to blood loss (chronic) Expected: 06/15/2023 (Approximate), Expires: 06/12/2024[facility] Work Phone: Comment on above:Expected: 06/15/2023 (Approximate), Expires: 06/12/2024Start: 06-15-2023 End: 55-16-4623Rfllsi [Mass/volume] in Serum or PlasmaFOLATE SERUM Lab Routine Iron deficiency anemia secondary to blood loss (chronic) Expected: 06/15/2023 (Approximate), Expires: 06/12/2024[facility] Work Phone: Comment on above:Expected: 06/15/2023 (Approximate), Expires: 06/12/2024Start: 06-15-2023 End: 62-34-5939Xnto and Iron binding capacity panel - Serum or PlasmaIRON + TIBC Lab Routine Iron deficiency anemia secondary to blood loss (chronic) Expected: 06/15/2023 (Approximate), Expires: 06/12/2024[facility] Work Phone: Comment on above:Expected: 06/15/2023 (Approximate), Expires: 06/12/2024Start: 06-15-2023 End: 42-58-6779UFL, INTACT (WITHOUT CALCIUM)PTH, INTACT (WITHOUT CALCIUM) Lab Routine Vitamin D deficiency Hypercalcemia Expected: 06/15/2023 (Approximate), Expires: 09/14/2023[facility] Work Phone: Comment on above:Expected: 06/15/2023 (Approximate), Expires: 09/14/2023Start: 06-15-2023 End: 10-93-5284Wghurlqobzl [Units/volume] in Serum or PlasmaTSH BLD Lab Routine Malaise and fatigue Expected: 06/15/2023 (Approximate), Expires: 09/14/2023 [facility] Work Phone: Comment on above:Expected: 06/15/2023 (Approximate), Expires: 09/14/2023Start: 06-14-2023 End: 045205-kmahxxxbwaczmc D3 [Mass/volume] in Serum or PlasmaVITAMIN D 25 HYDROXY Lab Routine Hypercalcemia Vitamin D deficiency Expected: 06/14/2023 (Approximate), Expires: 09/13/2023[facility] Work Phone: Comment on above:Expected: 06/14/2023 (Approximate), Expires: 09/13/2023Start: 06-14-2023 End: 32-13-5647Ogsqkpa.ionized [Moles/volume] in BloodCALCIUM IONIZED BLOOD Lab Routine Hypercalcemia Vitamin D deficiency Expected: 06/14/2023 (Approximate), Expires: 09/13/2023[facility] Work Phone: Comment on above:Expected: 06/14/2023 (Approximate), Expires: 09/13/2023Start: 06-14-2023 End: 91-69-6744VPL, INTACT (WITHOUT CALCIUM)PTH, INTACT (WITHOUT CALCIUM) Lab Routine Hypercalcemia Vitamin D deficiency Expected: 06/14/2023 (Approximate), Expires: 09/13/2023[facility] Work Phone: Comment on above:Expected: 06/14/2023 (Approximate), Expires: 09/13/2023Start: 06-14-2023 End: 09-69-2246Ppkzjokvtzw [Units/volume] in Serum or PlasmaTSH BLD Lab Routine Hypercalcemia Malaise and fatigue Expected: 06/14/2023 (Approximate), Expires: [address] [place] [address] Work Phone: Comment on above:Expected: 06/14/2023 (Approximate), Expires: 09/13/2023Start: 05-14-2023 End: 46-65-8385DIZ W Auto Differential panel - BloodCBC + DIFF Lab Routine Primary hypercoagulable state (HCC) Iron deficiency anemia secondary to blood loss (chronic) Vitamin D deficiency CVA, old, 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) Expected: 05/14/2023 (Approximate), Expires: 03/19/2024[facility] Work Phone: Comment on above:Expected: 05/14/2023 (Approximate), Expires: 03/19/2024Start: 05-14-2023 End: 92-49-3203Tellrygls (Vitamin B12) [Mass/volume] in Serum or PlasmaVITAMIN B12 BLOOD Lab Routine Primary hypercoagulable state (HCC) Iron deficiency anemia secondary to blood loss (chronic) Vitamin D deficiency CVA, old, 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) Expected: 05/14/2023 (Approximate), Expires: 03/19/2024[facility] Work Phone: Comment on above:Expected: 05/14/2023 (Approximate), Expires: 03/19/2024Start: 05-14-2023 End: 16-32-5746Pukkdbcirtidh metabolic 2000 panel - Serum or PlasmaCOMP METABOLIC PANEL Lab Routine Primary hypercoagulable state (HCC) Iron deficiency anemia secondary to blood loss (chronic) Vitamin D deficiency CVA, old, 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) Expected: 05/14/2023 (Approximate), Expires: 03/19/2024[facility] Work Phone: Comment on above:Expected: 05/14/2023 (Approximate), Expires: 03/19/2024Start: 05-14-2023 End: 22-12-9407Oqzmvkaw [Mass/volume] in Serum or PlasmaFERRITIN BLD Lab Routine Primary hypercoagulable state (HCC) Iron deficiency anemia secondary to blood loss (chronic) Vitamin D deficiency CVA, old, 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) Expected: 05/14/2023 (Approximate), Expires: 03/19/2024[facility] Work Phone: Comment on above:Expected: 05/14/2023 (Approximate), Expires: 03/19/2024Start: 05-14-2023 End: 07-37-3701Fusose [Mass/volume] in Serum or PlasmaFOLATE SERUM Lab Routine Primary hypercoagulable state (HCC) Iron deficiency anemia secondary to blood loss (chronic) Vitamin D deficiency CVA, old, 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) Expected: 05/14/2023 (Approximate), Expires: 03/19/2024[facility] Work Phone: Comment on above:Expected: 05/14/2023 (Approximate), Expires: 03/19/2024Start: 05-14-2023 End: 41-49-2040Rweh and Iron binding capacity panel - Serum or PlasmaIRON + TIBC Lab Routine Primary hypercoagulable state (HCC) Iron deficiency anemia secondary to blood loss (chronic) Vitamin D deficiency CVA, old, 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) Expected: 05/14/2023 (Approximate), Expires: 03/19/2024[facility] Work Phone: Comment on above:Expected: 05/14/2023 (Approximate), Expires: 03/19/2024Start: 17-11-6898Qerwweinqg Health ScreeningBehavioral Health ScreeningMercy Health [facility] Regional Medical Centertart: 35-99-0735Gqnbeaqxlr AssessmentDepression AssessmentMercy Health [facility] Regional Medical Centertart: 02-16-2023 End: 597075-crxwdtxvjtnztw D3 [Mass/volume] in Serum or PlasmaVITAMIN D 25 HYDROXY Lab Routine Primary hypercoagulable state (HCC) Iron deficiency anemia secondary to blood loss (chronic) Vitamin D deficiency Expected: 02/16/2023 (Approximate), Expires: 04/18/2023[facility] Work Phone: Comment on above:Expected: 02/16/2023 (Approximate), Expires: 04/18/2023Start: 02-16-2023 End: 00-81-8027UZA W Auto Differential panel - BloodCBC + DIFF Lab Routine Primary hypercoagulable state (HCC) Iron deficiency anemia secondary to blood loss (chronic) Expected: 02/16/2023 (Approximate), Expires: 12/23/2023[facility] Work Phone: Comment on above:Expected: 02/16/2023 (Approximate), Expires: 12/23/2023Start: 02-16-2023 End: 07-40-4004Shttwykpy (Vitamin B12) [Mass/volume] in Serum or PlasmaVITAMIN B12 BLOOD Lab Routine Primary hypercoagulable state (HCC) Iron deficiency anemia secondary to blood loss (chronic) Expected: 02/16/2023 (Approximate), Expires: 12/23/2023[facility] Work Phone: Comment on above:Expected: 02/16/2023 (Approximate), Expires: 12/23/2023Start: 02-16-2023 End: 74-61-8499Uzbqifxautdmz metabolic 2000 panel - Serum or PlasmaCOMP METABOLIC PANEL Lab Routine Primary hypercoagulable state (HCC) Iron deficiency anemia secondary to blood loss (chronic) Expected: 02/16/2023 (Approximate), Expires: 12/23/2023[facility] Work Phone: Comment on above:Expected: 02/16/2023 (Approximate), Expires: 12/23/2023Start: 02-16-2023 End: 42-16-7308Mwsphdnd [Mass/volume] in Serum or PlasmaFERRITIN BLD Lab Routine Primary hypercoagulable state (HCC) Iron deficiency anemia secondary to blood loss (chronic) Expected: 02/16/2023 (Approximate), Expires: 12/23/2023[facility] Work Phone: Comment on above:Expected: 02/16/2023 (Approximate), Expires: 12/23/2023Start: 02-16-2023 End: 43-54-1624Yuvfxs [Mass/volume] in Serum or PlasmaFOLATE SERUM Lab Routine Primary hypercoagulable state (HCC) Iron deficiency anemia secondary to blood loss (chronic) Expected: 02/16/2023 (Approximate), Expires: 12/23/2023[facility] Work Phone: Comment on above:Expected: 02/16/2023 (Approximate), Expires: 12/23/2023Start: 02-16-2023 End: 25-91-4575Tpim and Iron binding capacity panel - Serum or PlasmaIRON + TIBC Lab Routine Primary hypercoagulable state (HCC) Iron deficiency anemia secondary to blood loss (chronic) Expected: 02/16/2023 (Approximate), Expires: 12/23/2023[facility] Work Phone: Comment on above:Expected: 02/16/2023 (Approximate), Expires: 12/23/2023Start: 58-70-8183Ddpqi-19 Vaccine ()Covid- 19 Vaccine ()[facility]: 40-94-0967Zkjwvmpnk vaccinationMercy Health Springfield Regional Medical Centertart: 70-08-0839RZL TESTINGPAP TESTINGMercy Health Springfield Regional Medical Centertart: 59-71-9360Gavdlbogw for malignant neoplasm of cervixPap Testing [facility] Centertart: 11-28-2022 End: 07-03-4742TOP W Auto Differential panel - BloodCBC + DIFF Lab Routine Primary hypercoagulable state (HCC) CVA, old, speech/language deficit Cerebral hyponatremia Expected: 11/28/2022 (Approximate), Expires: 10/04/2023[facility] Work Phone: Comment on above:Expected: 11/28/2022 (Approximate), Expires: 10/04/2023Start: 11-28-2022 End: 19-52-2063Xbzvvfyin (Vitamin B12) [Mass/volume] in Serum or PlasmaVITAMIN B12 BLOOD Lab Routine Primary hypercoagulable state (HCC) CVA, old, speech/language deficitCerebral hyponatremia Expected: 11/28/2022 (Approximate), Expires: 06/06/[address] [place] [address] Work Phone: Comment on above:Expected: 11/28/2022 (Approximate), Expires: 10/04/2023Start: 11-28-2022 End: 15-44-8072Qfavnkiiseqrw metabolic 2000 panel - Serum or PlasmaCOMP METABOLIC PANEL Lab Routine Primary hypercoagulable state (HCC) CVA, old, speech/language deficit Cerebral hyponatremia Expected: 11/28/2022 (Approximate), Expires: [address] [place] [address] Work Phone: Comment on above:Expected: 11/28/2022 (Approximate), Expires: 10/04/2023Start: 11-28-2022 End: 92-67-2199Ungkvdjh [Mass/volume] in Serum or PlasmaFERRITIN BLD Lab Routine Primary hypercoagulable state (HCC) CVA, old, speech/language deficit Cerebral hyponatremia Expected: 11/28/2022 (Approximate), Expires: 10/04/2023[facility] Work Phone: Comment on above:Expected: 11/28/2022 (Approximate), Expires: 10/04/2023Start: 11-28-2022 End: 94-13-0370Gdwjtp [Mass/volume] in Serum or PlasmaFOLATE SERUM Lab Routine Primary hypercoagulable state (HCC) CVA, old, speech/language deficit Cerebral hyponatremia Expected: 11/28/2022 (Approximate), Expires: 10/04/2023[facility] Work Phone: Comment on above:Expected: 11/28/2022 (Approximate), Expires: 10/04/2023Start: 11-28-2022 End: 13-88-1322Ivcv and Iron binding capacity panel - Serum or PlasmaIRON + TIBC Lab Routine Primary hypercoagulable state (HCC) CVA, old, speech/language deficit Cerebral hyponatremia Expected: 11/28/2022 (Approximate), Expires: [address] [place] [address] Work Phone: Comment on above:Expected: 11/28/2022 (Approximate), Expires: 10/04/2023Start: 09-21-2022 End: 52-09-4363ZIF W Auto Differential panel - BloodCBC + DIFF Lab Routine Primary hypercoagulable state (HCC) 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, old, speech/language deficit Expected: 09/21/2022 (Approximate), Expires: 07/28/2023[facility] Work Phone: Comment on above:Expected: 09/21/2022 (Approximate), Expires: 07/28/2023Start: 09-21-2022 End: 59-94-1732Vljhnpmqb (Vitamin B12) [Mass/volume] in Serum or PlasmaVITAMIN B12 BLOOD Lab Routine Primary hypercoagulable state (HCC) 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, old, speech/language deficit Expected: 09/21/2022 (Approximate), Expires: 07/28/2023[facility] Work Phone: Comment on above:Expected: 09/21/2022 (Approximate), Expires: 07/28/2023Start: 09-21-2022 End: 79-49-8862Xknkcchtpyxtf metabolic 2000 panel - Serum or PlasmaCOMP METABOLIC PANEL Lab Routine Primary hypercoagulable state (HCC) 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, old, speech/language deficit Expected: 09/21/2022 (Approximate), Expires: 07/28/2023[facility] Work Phone: Comment on above:Expected: 09/21/2022 (Approximate), Expires: 07/28/2023Start: 09-21-2022 End: 82-57-9442Cotmlpfk [Mass/volume] in Serum or PlasmaFERRITIN BLD Lab Routine Primary hypercoagulable state (HCC) 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, old, speech/language deficit Expected: 09/21/2022 (Approximate), Expires: 07/28/2023[facility] Work Phone: Comment on above:Expected: 09/21/2022 (Approximate), Expires: 07/28/2023Start: 09-21-2022 End: 81-96-1646Ilosdg [Mass/volume] in Serum or PlasmaFOLATE SERUM Lab Routine Primary hypercoagulable state (HCC) 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, old, speech/language deficit Expected: 09/21/2022 (Approximate), Expires: 07/28/2023[facility] Work Phone: Comment on above:Expected: 09/21/2022 (Approximate), Expires: 07/28/2023Start: 09-21-2022 End: 44-25-8496Kcdq and Iron binding capacity panel - Serum or PlasmaIRON + TIBC Lab Routine Primary hypercoagulable state (HCC) 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, old, speech/language deficit Expected: 09/21/2022 (Approximate), Expires: 07/28/2023[facility] Work Phone: Comment on above:Expected: 09/21/2022 (Approximate), Expires: 07/28/2023Start: 88-39-9505RKSTMLKPQL ASSESSMENTDEPRESSION ASSESSMENT [facility]: 01-30[facility]22 End: 56-86-1845Opldziud [Mass/volume] in Serum or PlasmaFERRITIN BLD Lab Routine Anemia, unspecified type Expected: 01/30/2022, Expires: 01/30/2023[facility] Work Phone: Comment on above:Expected: 01/30/2022, Expires: 01/30/2023Start: 01-30-2022 End: 04-75-9542Jpku and Iron binding capacity panel - Serum or PlasmaIRON + TIBC Lab Routine Anemia, unspecified type Expected: 01/30/2022, Expires: 01/30/2023 [facility] Work Phone: Comment on above:Expected: 01/30/2022, Expires: 01/30/2023Start: 72-72-4338Cvkmpwfca vaccinationMercy Health Springfield Regional Medical Centertart: 12-29-2021 End: 16-51-4015Evnvlvq encounter veqywhqwu73/01/2022 [facility] Maternal MedStart: 39-14-6177CGAUCMUWLW ASSESSMENTDEPRESSION ASSESSMENTMercy Health [facility] Medical Centertart: 75-00-5392Fwslz depression screening assessmentDEPRESSION SCREENINGMercy Health [facility] Medical Centertart: 12-04-2020 Screening for malignant neoplasm of cervixCervical Cancer ScreeningMercy Health [facility] Regional Medical Centertart: 58-51-1567Gadmfsnp screenDiabetes screenSENTARA [facility] Start: 40-62-7106LNM TESTINGHPV TESTINGMercy Health [facility] Regional Medical Centertart: 10-22-2015 Screening for malignant neoplasm of cervixSENTARA NORFOLK GENERAL HOSPITALStart: 80-76-5018FSX Vaccine (1 - 3-dose SCDM series)HPV Vaccine (1 - 3-dose SCDM series)[facility]: 78-72-7172DZF Vaccines (1 - 3-dose SCDM series)HPV Vaccines (1 - 3-dose SCDM series)[facility] CareStart: 65-01-2014Vtayqdkig for malignant neoplasm of cervixPap smearSENTARA NORFOLK GENERAL HOSPITALStart: 2004 DTaP,Tdap and Td Vaccines (1 - Tdap)DTaP,Tdap and Td Vaccines (1 - Tdap) [facility] to [facility]: 29-83-3375Fylinnvwm B Vaccine (1 of 3 - 19+ 3-dose series)Hepatitis B Vaccine (1 of 3 - 19+ 3-dose series)[facility]art: 90-25-9716Rjwjchvfx B Vaccines (1 of 3 - 19+ 3-dose series)Hepatitis B Vaccines (1 of 3 - 19+ 3-dose series)[facility] HealthcareStart: 98-43-4449Fzfeq BMI Follow Up PlanAdult BMI Follow Up PlanPending sale to [facility]art: 16-83-9687Nwxlb BMI ScreeningAdult BMI ScreeningPending sale to [facility]art: 83-95-2706Igkacfv ScreeningAnxiety ScreeningMercy Health [facility] Regional Medical Centertart: 99-89-7021Aizvnxwaqa Screening Depression ScreeningMercy Health [facility] Regional Medical Centertart: 02-97-6311ECUSIQFBR C SCREENING HEPATITIS C SCREENINGMercy Health [facility] Regional Medical Centertart: 67-74-7046Vpheyzgxm C screeningSENTARA NORFOLK GENERAL HOSPITALStart: 90-94-1735VGI SCREENINGHIV SCREENINGK[facility]tering [facility] Start: 51-74-8372SPB screeningHIV ScreeningMercy Health [facility] Regional Medical Centertart: 1998 History of varicella vaccinationVaricella Vaccines (1 of 2 - 13+ 2-dose series) [facility] CareStart: 67-03-3571Nympbagruc ScreenDepression ScreenBON Keenan Private Hospitalart: 17-64-9253Ynoxivdhfw ScreeningDepression ScreeningProCommunity Memorial Hospitaltart: 11-76-6969Zmcalfo ScreeningTobacco ScreeningPending sale to [facility]art: 75-96-4501WUqA/Tdap/Td Vaccines (1 - Tdap)DTaP/Tdap/Td Vaccines (1 - Tdap)[facility] CareStart: 15-85-8032VCYPM-19 VACCINE (#1)COVID-19 VACCINE (#1)[facility]art: 79-54-8956ETJCR-19 VACCINE (1)COVID-19 VACCINE (1) [facility] Cent[facility]art: 30-15-3893BZE Vaccines (1 of 1 - Standard series)MMR Vaccines (1 of 1 - Standard series)[facility] CareStart: 52-97-1895Qpdatgtoo vaccine (1 of 2 - 2-dose childhood series)Varicella vaccine (1 of 2 - 2-dose childhood series)[facility]: 38-70-5397EUEYT-19 Vaccine (#1) COVID-19 Vaccine (#1)[facility] Healthcareart: 08-28-2629FACABJYIX B (1 of 3 - 3-dose series)HEPATITIS B (1 of 3 - 3-dose series)[facility] Cent[facility]art: 62-11-9598Rtnuocyst B Vaccine (1 of 3 - 3-dose series)Hepatitis B Vaccine (1 of 3 - 3-dose series)[facility] End: 22-70-0254Nbznw Fetoprotein, MaternalB[facility] Work Phone: comment on above:Once for 1 Occurrences starting 11/21/2021 until 11/21/2021 End: 63-39-5904Dslklehxejl Ab, HEp-2 Substrate, S (NASEEM by IFA)Antinuclear Ab, HEp-2 Substrate, S (NASEEM by IFA) Lab Routine Antiphospholipid syndrome Antiphospholipid syndrome complicating , antepartum History of CVA (cerebrovascular accident) 1 Occurrences starting 02/16/2025 until 02/16/2026 [facility] Work Phone: comment on above:1 Occurrences starting 02/16/2025 until 6Bacteria identified in Urine by CultureUrine culture Microbiology Routine Missed menses Ordered: 04/04/2024[facility] HealthcareComment on above:Ordered: 04/04/2024acteria identified in Urine by CultureUrine culture Microbiology Routine Missed menses Ordered: 10/02/2024[facility] HealthcareComment on above:Ordered: 10/02/2024 End: 86-29-7335QUQ W Auto Differential panel - BloodCBC + DIFF Lab Routine Primary hypercoagulable state (HCC) CVA, old, 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[facility]) Every 2 months for 6 Occurrences starting 01/30/2022 until 01/30/2023[facility] Work Phone: Comment on above:Every 2 months for 6 Occurrences starting 01/30/2022 until 3CBC W Auto Differential panel - BloodCBC and differential Lab Routine Missed menses , unspecified gestational age Ordered: 04/04/2024[facility] HealthcareComment on above:Ordered: 4CBC W Auto Differential panel - BloodCBC and differential Lab Routine Missed menses , unspecified gestational age Ordered: 10/02/2024[facility] HealthcareComment on above:Ordered: 10/02/2024BC W Auto Differential panel - BloodCBC and differential Lab Routine 28 weeks gestation of ([facility]) Ordered: 02/09/2025[facility] Healthcare Work Phone: comment on above:Ordered: 02/09/2025HLAMYDIA TRACHOMATIS (GENITO/STI)CHLAMYDIA TRACHOMATIS (GENITO/STI) Lab Routine Vaginal bleeding Vaginal discharge Ordered: 06/23/2024[facility] HealthcareComment on above: Ordered: 06/23/2024HLAMYDIA TRACHOMATIS (GENITO/STI)CHLAMYDIA TRACHOMATIS (GENITO/STI) Lab Routine Vaginal discharge Ordered: 11/20/2024[facility] Healthcare Comment on above:Ordered: 11/20/2024 End: 15-94-6628Evnlugwxge profile (C3 AND C4)Complement profile (C3 AND C4) Lab Routine Antiphospholipid syndrome Antiphospholipid syndrome complicating , antepartum History of CVA (cerebrovascular accident) 1 Occurrences starting 02/16/2025 until 02/16/2026[facility]Comment [facility]:1 Occurrences starting 02/16/2025 until 02/16/2026 End: 96-73-2745Dqbjemuxaoqeu metabolic 2000 panel - Serum or PlasmaCOMP METABOLIC PANEL Lab Routine Primary hypercoagulable state (HCC) CVA, old, 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) Every 2 months for 6 Occurrences starting 01/30/2022 until 01/30/2023[facility] Work Phone: Comment on above:Every 2 months for 6 Occurrences starting 01/30/2022 until 01/30/2023 End: 01-07-1585GYG double-stranded (dsDNA) Abs by Crithidia luciliae IFADNA double-stranded (dsDNA) Abs by Crithidia luciliae IFA Lab Routine Antiphospholipid syndrome Antiphospholipid syndrome complicating , antepartum History of CVA (cerebrovascular accident) 1 Occurrences starting 02/16/2025 until 02/16/2026[facility] SystemComment on above:1 Occurrences starting 02/16/2025 until 02/16/2026 End: 35-56-3589SRM PanelENA Panel Lab Routine Antiphospholipid syndrome Antiphospholipid syndrome complicating , antepartum History of CVA (cerebrovascular accident) 1 Occurrences starting 02/16/2025 until 02/16/2026 [facility] SystemComment [facility] above:1 Occurrences starting 02/16/2025 until 02/16/2026Hemoglobin A1c/Hemoglobin.total in BloodHemoglobin A1c Lab Routine Missed menses , unspecified gestational age Ordered: 04/04/2024[facility] HealthcareComment on above:Ordered: 04/04/2024Hemoglobin A1c/Hemoglobin.total in BloodHemoglobin A1c Lab Routine Missed menses , unspecified gestational age Ordered: 10/02/2024[facility] HealthcareComment on above:Ordered: 10/02/2024Hepatitis B virus surface Ag [Presence] in Serum or Plasma by ImmunoassayHepatitis B surface antigen Lab Routine Missed menses , unspecified gestational age Ordered: 04/04/2024[facility] HealthcareComment on above: Ordered: 04/04/2024Hepatitis B virus surface Ag [Presence] in Serum or Plasma by ImmunoassayHepatitis B surface antigen Lab Routine Missed menses , unspecified gestational age Ordered: 10/02/2024[facility] HealthcareComment on above: Ordered: 10/02/2024Hepatitis C virus Ab [Presence] in Serum or Plasma by ImmunoassayHepatitis C antibody Lab Routine Missed menses , unspecified gestational age Ordered: 04/04/2024[facility] HealthcareComment on above:Ordered: 04/04/2024Hepatitis C virus Ab [Presence] in Serum or Plasma by Immunoassay Hepatitis C antibody Lab Routine Missed menses , unspecified gestational age Ordered: 10/02/2024[facility] HealthcareComment on above:Ordered: 10/02/2024HIV-1/HIV-2 antigen/antibody combination immunoassayHIV-1 and HIV-2 antibodies Lab Routine Missed menses , unspecified gestational age Ordered: 04/04/2024[facility] HealthcareComment on above:Ordered: 04/04/2024 HIV-1/HIV-2 antigen/antibody combination immunoassayHIV-1 and HIV-2 antibodies Lab Routine Missed menses , unspecified gestational age Ordered: 10/02/2024[facility] HealthcareComment on above:Ordered: 10/02/2024Neisseria gonorrhoeae DNA [Presence] in Unspecified specimen by LELO with probe detection Neisseria gonorrhea DNA probe, direct Lab Routine Vaginal bleeding Vaginal discharge Ordered: 06/23/2024[facility] HealthcareComment on above:Ordered: 06/23/2024 Neisseria gonorrhoeae DNA [Presence] in Unspecified specimen by LELO with probe detectionNeisseria gonorrhea DNA probe, direct Lab Routine Vaginal discharge Ordered: 11/20/2024[facility] HealthcareComment on above:Ordered: 11/20/2024Reagin Ab [Presence] in Serum by RPRRPR Lab Routine Missed menses , unspecified gestational age Ordered: 04/04/2024[facility] HealthcareComment on above:Ordered: 4Reagin Ab [Presence] in Serum by RPRRPR Lab Routine Missed menses , unspecified gestational age Ordered: 10/02/2024[facility] HealthcareComment on above:Ordered: 10/02/2024Rubella antibody, IgGRubella antibody, IgG Lab Routine Missed menses , unspecified gestational age Ordered: 04/04/2024 [facility] HealthcareComment on above:Ordered: 04/04/2024ubella antibody, IgGRubella antibody, IgG Lab Routine Missed menses , unspecified gestational age Ordered: 10/02/2024[facility] HealthcareComment on above:Ordered: 10/02/2024 SURESWAB(R) ADVANCED VAGINITIS PLUS, TMASURESWAB(R) ADVANCED VAGINITIS PLUS, TMA Pathology and Cytology Routine Vaginal bleeding Vaginal discharge Ordered: 06/23/2024[facility] Healthcare Work Phone: comment on above:Ordered: 06/23/2024SURESWAB(R) ADVANCED VAGINITIS PLUS, TMASURESWAB(R) ADVANCED VAGINITIS PLUS, TMA Pathology and Cytology Routine Vaginal discharge Ordered: 11/20/2024[facility] Healthcare Work Phone: comment on above:Ordered: 11/20/2024Thyrotropin [Units/volume] in Serum or PlasmaTSH Lab Routine Hypothyroidism (acquired) ([facility]) Ordered: 04/04/2024[facility] HealthcareComment on above:Ordered: 04/04/2024 Thyrotropin [Units/volume] in Serum or PlasmaTSH Lab Routine History of thyroid disease Ordered: 06/02/2024[facility] Healthcare Work Phone: comuwqd on above:Ordered: 06/02/2024Thyrotropin [Units/volume] in Serum or PlasmaTSH Lab Routine Thyroid disease ([facility]) Ordered: 10/02/2024[facility] HealthcareComment on above:Ordered: 10/02/2024 Thyrotropin [Units/volume] in Serum or PlasmaTSH Lab Routine Second trimester ([facility]) Thyroid disease Ordered: 12/11/2024[facility] Healthcare Work Phone: comyfdj on above:Ordered: 12/11/2024UA DIP, URINE (POC)UA DIP, URINE (POC) Lab Routine Infective urethritis Ordered: 08/01/2021 [facility] Work Phone: Comment on above:Ordered: 08/01/2021Vitamin D 1,25 dihydroxyVitamin D 1,25 dihydroxy Lab Routine Low vitamin D level Ordered: 04/04/2024[facility] HealthcareComment on above:Ordered: 04/04/2024 End: 32-17-2257Ilsaxhq D 25 hydroxyVitamin D 25 hydroxy Lab Routine Insulin controlled gestational diabetes mellitus (GDM) in second trimester 1 Occurrences starting 12/03/2024 until 12/03/2025[facility] Work Phone: comment on above:1 Occurrences starting 12/03/2024 until 12/03/2025[facility] Immunizations Immunization DateImmunizationNotesCare YljqbjsjIbhqavlt69-46-8841othbzreck virus vaccine, unspecified formulationKristofer Calix MD Work Phone: [facility] DaytonWzlgzj22-20-6951zlwmbmg toxoid, reduced diphtheria toxoid, and acellular pertussis vaccine, adsorbedMa Sand Work Phone: [facility] DaytonNEGATED: Highlighted row has not occurred!34-90-0409myauouaym virus vaccine, unspecified formulationScott PRAVEEN [phone]-PhuwnCherrington Hospital Primary CareNEGATED: Highlighted row has not occurred!62-49-7507zjijxjrys virus vaccine, unspecified formulationPERNELL LONGORIA [phone]-XggorCherrington Hospital [facility] [place] Payers DatePayer CategoryPayerPolicy [id number] 2021Medicaid [place] [employer] [id number] 2020-Present [phone] [address] [place] [address] [id number] 2021Medicaid [id number] 2.16.840.1.430434.3.57[id number] 2.16.840.1.370818.3.57[id number] 2.16.840.1.573215.3.579.2.18665-09-6530Rlgclow0474042 2.16.840.1.839011.3.579.2.44582-66-0943Ymhjvnj3623721 2.16.840.1.410883.3.579.2.19598-24-5110Aidsicy8214455 2.16840.1.499005.3.579.2.94737-59-4228Vjlqedm5785289 2.16840.1.953637.3.579.2.49025-15-6671Igqpleu9642035 2.16.840.1.111261.3.579.2.85421-21-9781Goaucws0744711 2.16.840.1.225921.3.579.2.63618-65-7355Hcimyut8855650 2.16.840.1.172143.3.579.2.89723-97-2689Koifyut3115810 2.16.840.1.729948.3.579.2.14242-22-2485Mnfyiwk7351597 2.16.840.1.901936.3.579.2.09994-38-8378Hmqpymt4710531 2.16.840.1.658454.3.579.2.17474-47-2917Vhftaeq7926723 2.16840.1.302335.3.579.2.27421-54-2548Gzjgbtg0119592 2.16840.1.035182.3.579.2.46574-31-3518Bzqlkud7119671 2.16840.1.462294.3.579.2.07391-60-3504Ntvdref8810477 2.16840.1.945623.3.579.2.26654-11-8302Lyxgmpw6873085 2.16840.1.298020.3.579.2.96869-44-4817Nfkdqil8178324 2.16840.1.767007.3.579.2.45846-97-0072Hfixqab0526747 2.840.1.876125.3.579.2.83282-55-0375Ytyczhk7146072 2.840.1.867449.3.579.2.62236-89-9027Mvowfvb8113696 2.840.1.168871.3.579.2.57042-75-2300Jwtiaes2283257 2.840.1.555531.3.579.2.14242-66-3148Lmbamzq1104130 2.840.1.074329.3.579.2.26874-23-4568Wvhjrie8921642 2.840.1.871256.3.579.2.68189-57-8969Wrmivsw3858248 2.16840.1.297803.3.579.2.15924-29-3606Nacijva3622576 2.16840.1.543491.3.579.2.39507-73-3708Eqkyteq6543032 2.16840.1.573019.3.579.2.34263-84-8018Jrgguhi2272172 2.16840.1.719620.3.579.2.76808-03-4276Ovfiwps48271871 2.16840.1.821704.3.579.2.95169-40-6422Zbbiekv15617528 2.16840.1.928463.3.579.2.47953-54-8507Snlyorn69094286 2.16840.1.817263.3.579.2.81095-61-0107Zohwfvi68625899 2.16840.1.615905.3.579.2.41942-99-6058Ydjtgrl63512724 2..1.189825.3.579.2.55771-86-2636Fuqmndh11920914 2..1.250896.3.579.2.03201-53-7010Nqbmxtp82511632 2.840.1.933905.3.579.2.07967-31-7248Aofrcvd75661293 2.0.1.298245.3.579.2.14824-09-8335Arfdmrf18593854 2.0.1.402669.3.579.2.34868-26-9703Otstikv34447768 2..1.354148.3.579.2.52517-27-0091Buejqia92612964 2.16840.1.545669.3.579.2.38187-95-5549Wrslbgf50060520 2.16840.1.977118.3.579.2.22389-31-7440Wmnhkfh24722389 2.16840.1.578710.3.579.2.76781-87-6816Szmvnyh39781434 2.16840.1.906552.3.579.2.13805-94-3415Ebmxogp72554675 2.16840.1.668539.3.579.2.42096-52-8064Mjmojos30166228 2.16840.1.594991.3.579.2.82675-14-6337Xpalkiv23678867 2.16840.1.421673.3.579.2.33625-15-6257Vrmusdc13900962 2.840.1.045348.3.579.2.27615-64-6513Fpyshyh80932506 2.0.1.858743.3.579.2.46546-72-3893Qeuzjsr48494315 2.840.1.123204.3.579.2.05105-41-6584Gdukkaa30245224 2.0.1.087683.3.579.2.92443-49-0877Ovvsyxp71676806 2.840.1.778329.3.579.2.68665-34-7870Grrjzoh25918303 2.0.1.741254.3.579.2.74031-71-9117Dzipqhl40133735 2.840.1.791783.3.579.2.70993-76-6385Qzgusxd05441554 2.0.1.027595.3.579.2.94096-12-3206Iycokqx37595828 2.840.1.309698.3.579.2.46079-97-0767Ktgtfis76358616 2.840.1.037100.3.579.2.39123-33-1152Vfczawn36981638 2.840.1.173329.3.579.2.54072-32-5823Ltcytmk61228395 2.16840.1.255635.3.579.2.42046-77-6195Huvbesg38128635 2.16840.1.700048.3.579.2.76999-20-3016Ngkswbf45983902 2.16840.1.490170.3.579.2.23244-04-7041Wugagak35375640 2.16840.1.730521.3.579.2.47888-58-5724Vdybrrt15385158 2.16840.1.965710.3.579.2.77568-00-8867Cqsbwuz39948969 2.0.1.107190.3.579.2.07329-60-6593Bmmqqbd82147692 2.0.1.564590.3.579.2.65231-27-6224Qafaqvp26767721 2.840.1.569938.3.579.2.36461-57-7124Czvmhyj08773692 2.840.1.730274.3.579.2.56355-95-9087Bfzgspv76839386 2.840.1.241608.3.579.2.04741-02-3123Pkszvrp41302043 2.0.1.396385.3.579.2.79127-34-3218Agyfquc32551697 2.840.1.228195.3.579.2.15691-16-3450Ohukknk25821917 2.840.1.937811.3.579.2.12953-74-8672Iszevkq33468724 2.16840.1.987062.3.579.2.78616-47-9517Xpmetnp73901158 2.840.1.027887.3.579.2.66347-05-8072Pfmrefk16163566 2.16840.1.227021.3.579.2.89166-19-2075Pvkfkwb957285340 2.16840.1.992119.3.579.2.877271-55-2396Ibreoen350311865 2.16840.1.495909.3.579.2.571678-66-4322Msdokrp441942003 2.16840.1.622776.3.579.2.852791-43-3656Lmwyjqu55432759 2.840.1.978113.3.579.2.27249-00-2825Zgctyrj18427293 2.840.1.049109.3.579.2.435561-89-9757Dyjnkew80715615 2.840.1.848688.3.579.2.455843-84-0043Uvnzobb21463724 2.840.1.611248.3.579.2.205053-52-3501Eboabic12775469 2.840.1.603991.3.579.2.155202-25-0294Qhipfnf71895430 2.840.1.653550.3.579.2.670164-68-4802Nqzefbv09429343 2.840.1.219859.3.579.2.659847-65-8810Kwqhmip49215006 2.840.1.289544.3.579.2.625957-05-0834Erlcepu44868229 2.840.1.557718.3.579.2.055826-85-2346Gotjgra55472161 2.16840.1.187279.3.579.2.242818-03-0808Wyahive23846349 2.16840.1.632499.3.579.2.735359-56-1213Czjfkvg4184728 2.16.840.1.844630.3.579.2.680344-13-8075Wpopxom5400404 2.16840.1.661526.3.579.2.706506-56-9578Pmzirfm8089548 2.16840.1.817749.3.579.2.591360-75-7503Aoqfigd7721252 2.16840.1.096577.3.579.2.951779-06-5057Fmxlimg0535185 2.0.1.358207.3.579.2.091074-40-4627Hirixer5408834 2.840.1.044004.3.579.2.445108-45-4620Xgacvxz614532837 2.840.1.181915.3.579.2.253425-28-4898Abfgisw824929903 2.840.1.477523.3.579.2.127913-74-0301Lnkfimx161181521 2.840.1.707107.3.579.2.321002-15-9087Szknuyy664064260 2.840.1.785204.3.579.2.463051-38-3726Lqzooxl891202427 2.840.1.280577.3.579.2.559565-00-2327Kkefmvu805643723 2.16840.1.165747.3.579.2.328542-10-7183Nqdbcoe135531526 2.16840.1.518844.3.579.2.069416-29-2040Daffprg361692750 2.16840.1.675341.3.579.2.984769-44-7030Oxvu-sya04-15-6651UcacornW1719070823 61-43-8254Raqeuki45800289243 1.2.840.397702.1.13.239.2.7.3.892008.315Unknown 2034905 2.16.840.1.156838.3.579.2.593 Social History DateTypeDetailFacilityStart: 09-10-2017 End: 35-41-3003Stnfpva smoking status NHISNever [facility] tobaccoK[facility] Start: 09-10-2017 End: 05-42-5558Ibdiety use and exposureSmokeless tobacco non-userMer[facility] Centertart: 08-01-2021 End: 21-71-9708Asshagc intakeCurrent non-drinker of alcohol (finding)[facility]: 57-04-3420Btn Assigned At BirthNot on fileMercy Health Springfield Regional Medical Centertart: 07-22-2021 End: 71-21-5639Dmikehxd to SARS-CoV-2 (event)Not sureMercy Health Springfield Regional Medical Centertart: 05-28-2017 End: 56-04-4112Nhhgofu smoking statusNeverPremier Health [facility] Start: 06-10-2020 End: 70-08-1526Pif Assigned At BirthFemalSt. [facility] Start: 11-21-2021 End: 51-77-1362Ijjtlzv intakeEx-drinker (finding)[employer] Work Phone: start: [phone] SDOH Alcohol Comment occasionallyBON [employer] Phone: start: [phone] [employer] Phone: start: 06-10-2020 End: 58-56-3893Wqcenqs of Social functionMercy Health Springfield Regional Medical Centertart: 04-04-2024 End: 84-16-9625Gwetmtrgj beverage intakeLifetime non-drinker (finding)NOMS HealthcareTobacco smoking status COISUnknown if ever smokedCommunity Memorial Hospital Work Phone: Start: 11-27-2018 End: 93-14-7066RurAjqrgm (finding)[facility] Hospitaltart: [phone] Assigned At [facility] Medical Equipment Procedure CodeEquipment CodeEquipment Original TextEquipment IdentifierDates [id number]: 10-30-2024 End: each by In Vitro route Daily Use to check FSBS four times daily [id number]: 10-30-2024 End: 71-70-7986Sqz a new needle with each injection ( 1- 5 times per day) [id number]: 12-03-2024 Functional Status JunqBgzetveoirLiggrlRlfltnml05-37-6691Jjnnzpc Health Questionnaire 2 item (PHQ- 2) [Reported][facility] Health CareVulfxyvfqw35-79-9446Egyngqo Health Questionnaire 2 item (PHQ- 2) [Reported][facility] Health CareIpnpvfggdv17-93-8503Eixanzqgyr StatusN/[facility] Primary Ewkf17-19-9783Yuluxkyvna StatusN/[facility] Family Medicine Seswg22-16-4034Cikksuopbz StatusN/[facility] Primary Otze27-09-5364Qqsrxtwdct StatusN/[facility] Primary Btrl43-22-8091Iqfljeflsk StatusN/[facility] 28-22-8091Yiyayfaoyj StatusN/[facility] Primary Nclh48-18-6664 Functional StatusN/[facility] Primary Twmt94-43-2004Iwbmvkupbo StatusN/[facility] Convenient Mnrs25-31-9182Nbmxvzcdxu Status N/[facility] Primary Qvrn09-53-1720Ensxsmdbnl StatusN/[facility] Primary Akdw05-04-3537Pznqpjfzsl StatusN/[facility] Primary Oknp38-21-5264Ocrbjwlopa StatusN/[facility] Care Clinical Notes 07-26-2019 to 03-11-2025 Note Date & TdntBvlmPfoqwxjq10-62-5134 History of Present illness Narrative* Charles Cortes [...] age) multigravida 35+ Antiphospholipid syndrome Hypothyroid Stroke ([facility]) Gestational diabetes mellitus (GDM) in second trimester [...] Anemia Antiphospholipid antibody syndrome Cerebral infarction, unspecified ([facility]) 05/16/2019 Hypothyroid Migraine without aura and without status migrainosus, not intractable 09/12/2017 Stroke ([facility]) 2015 REVIEW OF SYSTEMS: Head and Neck: [...] Visit via Real-time Synchronous Audiovisual Provider Location: [facility]- MEDICINE AT [address] [phone] Patient Location: Patient's home Patient Location [place]: None Video Visit Consent Statement: I discussed [...] that there are some limitations compared to pkov-ya-kmxn evaluations. We elected to proceed. documented in this encounterGreene Memorial HospitalTNT Crowd [facility] HealthDwcvaq41-55-7072 NoteHNO ID: [id number] Author: KATHERINE NEGRETE APRN.BRIDGE SAW OPERATOR Service: ? Author Type: Nurse Practitioner Type: Progress Notes Filed: 03/02/2025 20:18 Note Text: NAME: Sanna Rendon CLINIC NO.: [id number] DATE OF SERVICE: March 02, 2025 (Penelope) [...] later in 2018. These were found in [place], [place]. I don't have access to these [...] a target-like rash shortly before presenting to [facility] in 2015 with headaches and was [...] SUMMARIZED PLAN OF CARE: Continue Lovenox Saw NYLON OPERATOR and patient increased Lovenox to 40 mg [...] She has a h (more content not included)...[place] [id number] History of Present illness Narrative* Rosi Murray, CHRISTIAN COUNSELOR - 02/23/2025 9:00 AM EDT Reason for [...] Diagnosis Date Noted 32 weeks gestation of ([facility]) 11/28/2019 Abdominal pain 06/12/2023 Acute bronchitis due to infection 06/12/2023 Acute on chronic vesicular eczema of hands and feet 11/15/2023 Anemia complicating childbirth ([facility]) 01/16/2020 Anticoagulant long-term use 02/22/2020 Antiphospholipid antibody positive 09/10/2017 Antiphospholipid antibody syndrome ([facility]) 07/07/2019 Anxiety 06/12/2023 Blood pressure elevated without history of HTN 11/15/2023 BMI 37.0-37.9, adult 11/15/2023 Cerebral infarction, unspecified ([facility]) 05/16/2019 Cerebrovascular accident (CVA) due to stenosis of middle cerebral artery ([facility]) 02/22/2020 Cervicalgia 02/05/2019 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 ([facility]) 01/08/2020 Coagulation defect, unspecified ([facility]) 02/05/2019 Cold intolerance 11/15/2023 Deficiency of other specified B group vitamins 05/16/2019 Deviated septum 11/15/2023 Dizziness and giddiness 02/05/2019 Dry mouth 11/15/2023 Dysfunction of eustachian tube 06/12/2023 Dyspnea 06/12/2023 Elevated blood pressure reading 11/15/2023 Encounter for supervision of normal , unspecified, first trimester ([facility]) 05/29/2019 Environmental allergies 11/15/2023 Fatigue 12/29/2016 First degree perineal laceration during delivery ([facility]) 01/16/2020 Frequency of micturition 02/19/2019 Genitourinary symptoms 08/19/2021 Gestational diabetes mellitus (GDM), antepartum ([facility]) 01/26/2022 H/O: hypothyroidism 11/15/2023 Hematochezia 06/12/2023 [...] anemia 01/16/2020 Irregular uterine bleeding 11/15/2023 problem ([facility]) 06/12/2023 Less than 8 weeks gestation of ([facility]) 06/05/2019 manager intermediate (current) use of 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/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 02/05/2019 Migraine without aura and without status migrainosus, not intractable 09/12/2017 Morbid obesity ([facility]) 11/15/2023 Muscle fasciculation 08/19/2021 Nasal polyps 11/15/2023 Non-smoker 11/15/2023 NEETA (obstructive sleep apnea) 11/15/2023 Other acute postprocedural pain 02/03/2019 Other general symptoms and signs 10/28/2019 Other immediate hemorrhage ([facility]) 01/16/2020 Other specified noninflammatory disorders of vagina 02/21/2019 Pain in joint 12/29/2016 Palpitations 08/26/2019 Paresthesia of bilateral legs 11/15/2023 Pelvic and perineal pain 02/01/2019 Personal history of urinary (tract) infections 01/16/2020 Pre-diabetes 11/15/2023 Primary hypercoagulable state ([facility]) 08/01/2022 Pruritus, unspecified 01/02/2020 Psychogenic hyperventilation 06/12/2023 Raised antibody titer 09/25/2017 Right lower quadrant pain 11/15/2023 Right otitis externa 11/15/2023 Salivary gland swelling 11/15/2023 Single live ([facility]) 01/15/2020 Snoring 11/15/2023 Speech and language [...] of advanced maternal age in second trimester ([facility]) 01/05/2025 Thyroid disease 01/05/2025 Resolved Ambulatory Problems Diagnosis Date Noted No Resolved Ambulatory Problems Past Medical History: Diagnosis Date AMA (advanced maternal age) multigravida 35+ ([facility]) Anemia Antiphospholipid syndrome ([facility]) Gestational diabetes [...] drainage of cyst WISDOM TOOTH EXTRACTION 2007 Jewell teeth REVIEW OF SYSTEMS Review of Systems: [...] nursing note reviewed. Exam conducted with a assistant surveyor present. Vitals: Estimated body mass index is 33.98 kg/m as calculated from the following: Height as of 11/19/23: 5' 6 . Weight as of this encounter: 210 lb 8 oz. BP: 116/72 Patient's last menstrual period was 07/28/2024. Assessment/Plan ICD-10-CM 1. Third trimester ([facility]) Z34.93 2. 30 weeks gestation of ([facility]) Z3A.30 POCT urinalysis dipstick manually [...] of: Wilton Herrmann DO documented in this encounterSSM Health CareRowhosiiin11-82-8859 History of Present illness Narrative* Sam Callahan MD MPH - 02/16/2025 1:45 PM EDT Images from the original note were not included. ADULT RHEUMATOLOGY CLINIC NOTE [address] [address] Patient Name: Sanna Rendon Subjective Reason for [...] following with two outside specialists (Neurology at [facility] and Hematology at [facility]) for management of her APS. The patient [...] age) multigravida 35+ Antiphospholipid syndrome Hypothyroid Stroke ([facility]) Gestational diabetes mellitus (GDM) in second trimester [...] Anemia Antiphospholipid antibody syndrome Cerebral infarction, unspecified ([facility]) 05/16/2019 Hypothyroid Migraine without aura and without status migrainosus, not intractable 09/12/2017 Stroke ([facility]) 2016 reviewed. Social History Social History Narrative [...] CENTER for her , neurology through the [facility] system, and hematology through [facility]. Based on extensive review of her outside [...] Expiration Date: 02/16/2026 Release to patient via Dry Lubet?: Immediate [1] Complement profile (C3 AND C4) Standing Status: Future Expiration Date: 02/16/2026 Release to patient via Doyenzhart?: Immediate [1] DNA double-stranded (dsDNA) Abs by Rene angel IFA Standing Status: Future Expiration Date: 02/16/2026 Release to patient via Doyenzhart?: Immediate [1] KELLEN Panel Standing Status: Future Expiration Date: 02/16/2026 Release to patient via Doyenzhart?: Immediate [1] Treatment Plan: -if the patient [...] OK Sam Callahan MD, MPH [facility] [address] [place] [address] Total imjq-ea-wigp time was 55 minutes with more than [...] you for your understanding. documented in this encounterMartin Memorial Hospital10-14-2025 Miscellaneous Notes* Telephone Encounter - [...] in blood sugars weekly. documented in this encounterBrightlook HospitalKingsbridge Risk Solutions10-14-2025 Telephone encounter Note* Telephone Encounter - PRISCILLA [...] Continue to send in blood sugars weekly. [employer] Work Phone: [phone] History of Present illness Narrative* Rosi Murray [...] Diagnosis Date Noted 32 weeks gestation of ([facility]) 11/28/2019 Abdominal pain 06/12/2023 Acute bronchitis due to infection 06/12/2023 Acute on chronic vesicular eczema of hands and feet 11/15/2023 Anemia complicating childbirth ([facility]) 01/16/2020 Anticoagulant long-term use 02/22/2020 Antiphospholipid antibody positive 09/10/2017 Antiphospholipid antibody syndrome ([facility]) 07/07/2019 Anxiety 06/12/2023 Blood pressure elevated without history of HTN 11/15/2023 BMI 37.0-37.9, adult 11/15/2023 Cerebral infarction, unspecified ([facility]) 05/16/2019 Cerebrovascular accident (CVA) due to stenosis of middle cerebral artery ([facility]) 02/22/2020 Cervicalgia 02/05/2019 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 ([facility]) 01/08/2020 Coagulation defect, unspecified ([facility]) 02/05/2019 Cold intolerance 11/15/2023 Deficiency of other specified B group vitamins 05/16/2019 Deviated septum 11/15/2023 Dizziness and giddiness 02/05/2019 Dry mouth 11/15/2023 Dysfunction of eustachian tube 06/12/2023 Dyspnea 06/12/2023 Elevated blood pressure reading 11/15/2023 Encounter for supervision of normal , unspecified, first trimester ([facility]) 05/29/2019 Environmental allergies 11/15/2023 Fatigue 12/29/2016 First degree perineal laceration during delivery ([facility]) 01/16/2020 Frequency of micturition 02/19/2019 Genitourinary symptoms 08/19/2021 Gestational diabetes mellitus (GDM), antepartum ([facility]) 01/26/2022 H/O: hypothyroidism 11/15/2023 Hematochezia 06/12/2023 [...] anemia 01/16/2020 Irregular uterine bleeding 11/15/2023 problem ([facility]) 06/12/2023 Less than 8 weeks gestation of ([facility]) 06/05/2019 manager intermediate (current) use of antithrombotics/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 02/05/2019 Migraine without aura and without status migrainosus, not intractable 09/12/2017 Morbid obesity ([facility]) 11/15/2023 Muscle fasciculation 08/19/2021 Nasal polyps 11/15/2023 Non-smoker 11/15/2023 NEETA (obstructive sleep apnea) 11/15/2023 Other acute postprocedural pain 02/03/2019 Other general symptoms and signs 10/28/2019 Other immediate hemorrhage ([facility]) 01/16/2020 Other specified noninflammatory disorders of vagina 02/21/2019 Pain in joint 12/29/2016 Palpitations 08/26/2019 Paresthesia of bilateral legs 11/15/2023 Pelvic and perineal pain 02/01/2019 Personal history of urinary (tract) infections 01/16/2020 Pre-diabetes 11/15/2023 Primary hypercoagulable state ([facility]) 08/01/2022 Pruritus, unspecified 01/02/2020 Psychogenic hyperventilation [...] of advanced maternal age in second trimester ([facility]) 01/05/2025 Thyroid disease 01/05/2025 Resolved Ambulatory Problems Diagnosis Date Noted No Resolved Ambulatory Problems Past Medical History: Diagnosis Date AMA (advanced maternal age) multigravida 35+ ([facility]) Anemia Antiphospholipid syndrome ([facility]) Gestational diabetes ([facility]) Heartburn Hypothyroid Stroke ([facility]) HISTORY PAST MEDICAL HISTORY SOCIAL HISTORY Past Medical History: Diagnosis Date AMA (advanced maternal age) multigravida 35+ ([facility]) Anemia Antiphospholipid syndrome ([facility]) Gestational diabetes ([facility]) Heartburn Hypothyroid Stroke ([facility]CC) Social History Tobacco [...] drainage of cyst WISDOM TOOTH EXTRACTION 2007 Jewell teeth REVIEW OF SYSTEMS Review of Systems: [...] nursing note reviewed. Exam conducted with a assistant surveyor present. Vitals: Estimated body mass index is 34.12 kg/m as calculated from the following: Height as of 11/19/23: 5' 6 . Weight as of this encounter: 211 lb 6.4 oz. BP: 124/76 Patient's last menstrual period was 07/28/2024. ASSESSMENT & PLAN ICD-10-CM 1. Third trimester ([facility]) Z34.93 2. 28 weeks gestation of ([facility]) Z3A.28 CBC and differential POCT urinalysis [...] givenorders and they were also faxed to [facility] Scheduling. Patient to return to clinic in 2 weeks for routine OB appointment. Documented by Rosi Murray LPN on behalf of: Wilton Herrmann DO documented in this encounterSSM Health CareRqdjvyowpr31-86-4325 History of Present illness Narrative* Mukul Noyola MD - 02/06/2025 2:00 PM EDT Images from the original note were not included. Video Visit via Real-time Synchronous Audiovisual Provider Location: [facility]- MEDICINE AT [address] [phone] Patient Location: Other Home Patient Location [place]: None Video Visit Consent Statement: I discussed [...] that there are some limitations compared to chzo-zw-hzvl evaluations. We elected to proceed. [facility] Maternal- Medicine Office Note Reason For Office [...] will be undergoing genetic testing through the fashion designer. There is family history of hypospadias and [...] Anemia Antiphospholipid antibody syndrome Cerebral infarction, unspecified ([facility]) 05/16/2019 Hypothyroid Migraine without aura and without status migrainosus, not intractable 09/12/2017 Stroke ([facility]) 2016 PSHIST: Past Surgical History: Procedure Laterality [...] Rfl: 4 pen needle, diabetic (BD ULTRA-FINE EIND PEN NEEDLE) 32 gauge x 5/32 needle, [...] Mukul Noyola MD, FACOG (she/hers) Maternal- Medicine [facility] [address] [place] [address] This document was created with [employer] technology. Though I make every effort to review the dictation as it is transcribed, on occasion the spoken word can be misinterpreted by the technology leading to inappropriate words, phrases, or sentences. This note is addressed to the requesting provider as a consultation for clinical guidance. Specificmedical abbreviations are occasionally used and those are generally approved by the [place]?Board of?Obstetrics and?Gynecology?as well as?Elizabeth s abbreviations. The above plan of care was based solely on the diagnoses for which a consultation was requested. ?More frequent testing may be indicated based on her other medical/obstetrical conditions. The management of other or medical conditions is beyond the scope of requested consultation and will c ontinue to be followed by the primary heel shaper or primary care provider. Note to patient: [...] opinion of the practitioner. documented in this encounterGreene Memorial HospitalTNT Crowd University [facility] HealthWpjeet18-25-3433 NoteEchocardiology Procedure Exam Date/Time Accession # Ordering Dr. Echo Transthoracic 02/03/2025 10:00 EDT [id number] Wilton HERRMANN DO Complete CPT code 05608 83016 Reason for Exam (Echo Transthoracic Complete) Dizziness and giddiness E07.9, O09.522 R42 Report [facility] [address] [place] [address] Adult Echocardiogram Report Name: SANNA RENDON Study Date: 02/03/2025 08:09 AM BP: 116/76 mmHg Patient Location: FT CAR F HR: 84 : 1985 Gender: Female Height: 66 in Age: 39 yrs Ethnicity: [facility] Weight: 205 lb Reason For Study: [...] Signed by: Merrick Watkins MD Transcribed by: [facility] Technologist: [facility]09-22-2025 History of Present illness Narrative* Celia [...] Diagnosis Date Noted 32 weeks gestation of ([facility]) 11/28/2019 Abdominal pain 06/12/2023 Acute bronchitis due to infection 06/12/2023 Acute on chronic vesicular eczema of hands and feet 11/15/2023 Anemia complicating childbirth ([facility]) 01/16/2020 Anticoagulant long-term use 02/22/2020 Antiphospholipid antibody positive 09/10/2017 Antiphospholipid antibody syndrome ([facility]) 07/07/2019 Anxiety 06/12/2023 Blood pressure elevated without history of HTN 11/15/2023 BMI 37.0-37.9, adult 11/15/2023 Cerebral infarction, unspecified ([facility]) 05/16/2019 Cerebrovascular accident (CVA) due to stenosis of middle cerebral artery ([facility]) 02/22/2020 Cervicalgia 02/05/2019 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 ([facility]) 01/08/2020 Coagulation defect, unspecified ([facility]) 02/05/2019 Cold intolerance 11/15/2023 Deficiency of other specified B group vitamins 05/16/2019 Deviated septum 11/15/2023 Dizziness and giddiness 02/05/2019 Dry mouth 11/15/2023 Dysfunction of eustachian tube 06/12/2023 Dyspnea 06/12/2023 Elevated blood pressure reading 11/15/2023 Encounter for supervision of normal , unspecified, first trimester ([facility]) 05/29/2019 Environmental allergies 11/15/2023 Fatigue 12/29/2016 First degree perineal laceration during delivery ([facility]) 01/16/2020 Frequency of micturition 02/19/2019 Genitourinary symptoms 08/19/2021 Gestational diabetes mellitus (GDM), antepartum ([facility]) 01/26/2022 H/O: hypothyroidism 11/15/2023 Hematochezia 06/12/2023 [...] anemia 01/16/2020 Irregular uterine bleeding 11/15/2023 problem ([facility]) 06/12/2023 Less than 8 weeks gestation of ([facility]) 06/05/2019 halfway (current) use of antithrombotics/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 02/05/2019 Migraine without aura and without status migrainosus, not intractable 09/12/2017 Morbid obesity ([facility]) 11/15/2023 Muscle fasciculation 08/19/2021 Nasal polyps 11/15/2023 Non-smoker 11/15/2023 NEETA (obstructive sleep apnea) 11/15/2023 Other acute postprocedural pain 02/03/2019 Other general symptoms and signs 10/28/2019 Other immediate hemorrhage ([facility]) 01/16/2020 Other specified noninflammatory disorders of vagina 02/21/2019 Pain in joint 12/29/2016 Palpitations 08/26/2019 Paresthesia of bilateral legs 11/15/2023 Pelvic and perineal pain 02/01/2019 Personal history of urinary (tract) infections 01/16/2020 Pre-diabetes 11/15/2023 Primary hypercoagulable state ([facility]) 08/01/2022 Pruritus, unspecified 01/02/2020 Psychogenic hyperventilation 06/12/2023 Raised antibody titer 09/25/2017 Right lower quadrant pain 11/15/2023 Right otitis externa 11/15/2023 Salivary gland swelling 11/15/2023 Single live ([facility]) 01/15/2020 Snoring 11/15/2023 Speech and language [...] drainage of cyst WISDOM TOOTH EXTRACTION 2007 Jewell teeth REVIEW OF SYSTEMS Review of Systems: [...] nursing note reviewed. Exam conducted with a assistant surveyor present. Vitals: Estimated body mass index is 34.14 kg/m as calculated from the following: Height as of 11/19/23: 5' 6 . Weight as of this encounter: 211 lb 8 oz. BP: 124/70 Patient's last menstrual period was 07/28/2024. ASSESSMENT & PLAN ICD-10-CM 1. Second trimester ([facility]) Z34.92 POCT urinalysis dipstick manually resulted 2. 25 weeks gestation of ([facility]) Z3A.25 3. Gestational diabetes mellitus (GDM), antepartum, gestational diabetes method of control unspecified ([facility]) O24.419 metFORMIN XR (Glucophage-XR) 500 MG [...] to switch her Lovenox and Metformin to [facility] pharmacy. Growth ultrasound at28 weeks as well as NST and BPP at 28 weeks. Documented by Celia Keith NP on behalf of: Wilton Herrmann DO documented in this encounterSSM Health CareRvelemcugv73-45-9908 History of Present illness Narrative* Roxana Mays PA-C - 01/13/2025 10:00 AM EDT Maternal- Medicine Consultation VIDEO Patient is present at home , provider present at [facility] HISTORY OF PRESENT ILLNESS: Sanna Rendon [...] more likely to fail compared to insulin. manager intermediate data on children whose mothers took oral [...] so she can have them done at [place] - Anatomy survey with MFM -followsup scheduled [...] by e-mail to: or by fax to: [phone] Roxana Mays PA-C Maternal- Medicine Office phone: [phone] Roxana Mays PA-C 01/13/25 1031 documented in this encounterGreene Memorial HospitalTNT Crowd [facility] Mhbluv41-11-5499 Miscellaneous Notes* Medical Student - Mike Aquino [...] the legal medical record. documented in this encounterMartin Memorial Hospital09-16-2025 Progress note* Medical Student - [...] a part of the legal medical record. [facility]09-12-2025 Miscellaneous Notes* Telephone Encounter - [...] answered. MUKUL NOYOLA MD documented in this encounterMartin Memorial Hospital09-12-2025 Telephone encounter Note* Telephone Encounter [...] concerns answered. MUKUL NOYOLA MD [facility] [id number] Miscellaneous Notes* Telephone Encounter - Jacque Pat RN - 01/07/2025 10:29 AM EDT [employer] called and spoke to patient yesterday to discuss a several topics. Sql Dba asked if patient wanted another follow up cervical length. Patient declined. We also discussed her insulin dosage. Patient had not started her NPH insulin yet because her pharmacy did not notify her it was ready for pickup. She asked if she could start at 4 units instead of 8. She is worried because she had a bad reaction when she took Lantus previously. Sql Dba discussed this with Dr. Noyola and she is okay with her starting at a lower dose for now. Lastly, lyric writer notified patient that Dr. Noyola wanted to discuss with her basin operator her Lovenox dosing. Patient stated there was some confusion if she should be on 40mg or 80mg, patient prefers to be on the lower dose. Patient is seeing a Dr. Calix from the [facility] hematology office in [place]. Notified patient that we will reach out to her basin operator to discuss her dosing. documented in this encounterGreene Memorial HospitalYellloh09-10-2025 Telephone encounter Note* Telephone Encounter - Jacque Pat RN - 01/07/2025 10:29 AM EDT Sql Dba called and spoke to patient yesterday to discuss a several topics. Sql Dba asked if patient wanted another follow up cervical length. Patient declined. We also discussed her insulin dosage. Patient had not started her NPH insulin yet because her pharmacy did not notify her it was ready for pickup. She asked if she could start at 4 units instead of 8. She is worried because she had a bad reaction when she took Lantus previously. Sql Dba discussed this with Dr. Noyola and she is okay with her starting at a lower dose for now. Lastly, lyric writer notified patient that Dr. Noyola wanted to discuss with her basin operator her Lovenox dosing. Patient stated there was some confusion if she should be on 40mg or 80mg, patient prefers to be on the lower dose. Patient is seeing a Dr. Calix from the [facility] hematology office in [place]. Notified patient that we will reach out to her basin operator to discuss her dosing. [facility]09-08-2025 History of Present illness Narrative* Rosi Murray [...] Diagnosis Date Noted 32 weeks gestation of ([facility]) 11/28/2019 Abdominal pain 06/12/2023 Acute bronchitis due to infection 06/12/2023 Acute on chronic vesicular eczema of hands and feet 11/15/2023 Anemia complicating childbirth ([facility]) 01/16/2020 Anticoagulant long-term use 02/22/2020 Antiphospholipid antibody positive 09/10/2017 Antiphospholipid antibody syndrome ([facility]) 07/07/2019 Anxiety 06/12/2023 Blood pressure elevated without history of HTN 11/15/2023 BMI 37.0-37.9, adult 11/15/2023 Cerebral infarction, unspecified ([facility]) 05/16/2019 Cerebrovascular accident (CVA) due to stenosis of middle cerebral artery ([facility]) 02/22/2020 Cervicalgia 02/05/2019 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 ([facility]) 01/08/2020 Coagulation defect, unspecified ([facility]) 02/05/2019 Cold intolerance 11/15/2023 Deficiency of other specified B group vitamins 05/16/2019 Deviated septum 11/15/2023 Dizziness and giddiness 02/05/2019 Dry mouth 11/15/2023 Dysfunction of eustachian tube 06/12/2023 Dyspnea 06/12/2023 Elevated blood pressure reading 11/15/2023 Encounter for supervision of normal , unspecified, first trimester ([facility]) 05/29/2019 Environmental allergies 11/15/2023 Fatigue 12/29/2016 First degree perineal laceration during delivery ([facility]) 01/16/2020 Frequency of micturition 02/19/2019 Genitourinary symptoms 08/19/2021 Gestational diabetes mellitus (GDM), antepartum ([facility]) 01/26/2022 H/O: hypothyroidism 11/15/2023 Hematochezia 06/12/2023 [...] anemia 01/16/2020 Irregular uterine bleeding 11/15/2023 problem ([facility]) 06/12/2023 Less than 8 weeks gestation of ([facility]) 06/05/2019 halfway (current) use of antithrombotics/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 02/05/2019 Migraine without aura and without status migrainosus, not intractable 09/12/2017 Morbid obesity ([facility]) 11/15/2023 Muscle fasciculation 08/19/2021 Nasal polyps 11/15/2023 Non-smoker 11/15/2023 NEETA (obstructive sleep apnea) 11/15/2023 Other acute postprocedural pain 02/03/2019 Other general symptoms and signs 10/28/2019 Other immediate hemorrhage ([facility]) 01/16/2020 Other specified noninflammatory disorders of vagina 02/21/2019 Pain in joint 12/29/2016 Palpitations 08/26/2019 Paresthesia of bilateral legs 11/15/2023 Pelvic and perineal pain 02/01/2019 Personal history of urinary (tract) infections 01/16/2020 Pre-diabetes 11/15/2023 Primary hypercoagulable state ([facility]) 08/01/2022 Pruritus, unspecified 01/02/2020 Psychogenic hyperventilation 06/12/2023 Raised antibody titer 09/25/2017 Right lower quadrant pain 11/15/2023 Right otitis externa 11/15/2023 Salivary gland swelling 11/15/2023 Single live ([facility]) 01/15/2020 Snoring 11/15/2023 Speech and language [...] drainage of cyst WISDOM TOOTH EXTRACTION 2007 Jewell teeth REVIEW OF SYSTEMS Review of Systems: [...] nursing note reviewed. Exam conducted with a assistant surveyor present. Vitals: Estimated body mass index is 33.73 kg/m as calculated from the following: Height as of 11/19/23: 5' 6 . Weight as of this encounter: 209 lb. BP: 122/74 Patient's last menstrual period was 07/28/2024. ASSESSMENT & PLAN ICD-10-CM 1. Second trimester ([facility]) Z34.92 POCT urinalysis dipstick manually resulted 2. 23 weeks gestation of ([facility]) Z3A.23 3. Thyroid disease E07.9 Echocardiogram 2D complete ECG 12 lead unit performed Echocardiogram 2D complete 4. Gestational diabetes mellitus (GDM), antepartum, gestational diabetes method of control unspecified ([facility]) O24.419 Echocardiogram 2D complete ECG 12 lead unit performed Echocardiogram 2D complete 5. Multigravida of advanced maternal age in second trimester ([facility]) O09.522 Echocardiogram 2D complete ECG 12 [...] of: Wilton Herrmann DO documented in this encounterSSM Health [id number] History of Present illness Narrative* Jacque Pat RN - 01/05/2025 10:20 AM EDT NPH insulin prior authorization approved. Confirmed via telephone call with automated voice messaging system. Prior authorization number #[id number] documented in this encounterMartin Memorial Hospital09-04-2025 History of Present illness Narrative* Mukul Noyola MD - 01/01/2025 2:30 PM EDT Images from the original note were not included. Video Visit via Real-time Synchronous Audiovisual Provider Location: [facility] AT [address] [address] Patient Location: Other [facility] Patient Location [place]: None Video Visit Consent Statement: I discussed [...] that there are some limitations compared to [id number] evaluations. We elected to proceed. [facility] Maternal- Medicine Consult Note Reason For Consult: [...] will be undergoing genetic testing through the fashion designer. There is family history of hypospadias and [...] Anemia Antiphospholipid antibody syndrome Cerebral infarction, unspecified ([facility]) 05/16/2019 Hypothyroid Migraine without aura and without status migrainosus, not intractable 09/12/2017 Stroke ([facility]) 2015 PSHIST: Past Surgical History: Procedure Laterality [...] contrast; Future - [facility] - [place], [place]; Future 2. Antiphospholipid syndrome complicating , antepartum - Echo complete W/O contrast; Future - [facility] [place], [place]; Future 3. History of stroke 4. [...] intermittent symptoms concerning for an autoimmune condition [id number]. I recommended she sees a public improvement inspector. Referral given. I asked her to hold [...] supposed to undergo genetic testing with her fashion designer. After the patient left I found that [...] asymptomatic I recommend that she sees a animal researcher and she desires referral locally. Recommendations: - [...] Mukul Noyola MD, FACOG (she/hers) Maternal- Medicine [facility] [address] [place] [address] This document was created with [employer] technology. Though I make every effort to review the dictation as it is transcribed, on occasion the spoken word can be misinterpreted by the technology leading to inappropriate words, phrases, or sentences. This note is addressed to the requesting provider as a consultation for clinical guidance. Specificmedical abbreviations are occasionally used and those are generally approved by the [place]?Board of?Obstetrics and?Gynecology?as well as?Elizabeth s abbreviations. The above plan of care was based solely on the diagnoses for which a consultation was requested. ?More frequent testing may be indicated based on her other medical/obstetrical conditions. The management of other or medical conditions is beyond the scope of requested consultation and will c taniaue to be followed by the primary heel shaper or primary care provider. Note to patient: [...] provider today? No concerns documented in this encounterGreene Memorial HospitalBayer AG [id number] Miscellaneous Notes* Telephone Encounter - PRISCILLA Del [...] and basics of CGM explained. Will send [employer] message with instructions on how to connect to our [facility] account. Explained how to prudence notes on the Jenifer kennedy for fasting BG and meals. documented in this encounterGreene Memorial HospitalTNT Crowd [facility] [id number] Telephone encounter Note* Telephone Encounter - PRISCILLA [...] and basics of CGM explained. Will send [employer] message with instructions on how to connect to our [facility] account. Explained how to prudence notes on the Jenifer kennedy for fasting BG and meals. Get[facility]08-26-2025 NoteHNO ID: [id number] Author: KATHERINE NEGRETE APRN.BRIDGE SAW OPERATOR Service: ? Author Type: Nurse Practitioner Type: Progress Notes Filed: 12/24/2024 21:07 Note Text: NAME: Sanna Rendon CLINIC NO.: [id number] DATE OF SERVICE: December 23, 2024 (Penelope) [...] later in 2018. These were found in [place], [place]. I don't have access to these [...] a target-like rash shortly before presenting to [facility] in 2016 with headaches and was [...] g/dL, and platelets a (more content not included)...[facility]08-26-2025 History of Present illness Narrative* Katherine Negrete APRN.BRIDGE SAW OPERATOR - 12/23/2024 11:50 AM EDT Images from the original note were not included. NAME: Sanna Rendon CLINIC NO.: [id number] DATE OF SERVICE: December 23, 2024 (Penelope) [...] later in 2018. These were found in [place], [place]. I don't have access to these [...] a target-like rash shortly before presenting to [facility] in 2016 with headaches and was [...] Monge soon. When she hada stroke in [place], she had symptoms up to a month before: uncontrollable headache, BP was elevated, knee stiffness, and blurry vision. Right facial drooping [facility]. [facility]. [...] and stayed on Lovenox Hgb 13.1 @ [facility] Recommended ER if persisting bleeding but she [...] and at age 69. Both lived in [place], [place] - but she was adopted. She was not able to see ID in October and will be seeing Dr. Baugh next week. Also will have her see Dr. Hamlin for her clotting disorder and make any other recommendations to optimize her treatment. Updated Visit, October 08, 2020: Telephone only Received call from pt stating she was seen in [facility] ER for numbness in her chest, throat, and extremities, and sob which has been worsening over the last week. We arranged a telephone visit for her toreview questions with me. Sanna Rendon is a 34 year old female seen for Hypercoagulable state and recent concerns and symptoms that required her to be seen at [facility] ER. She went to the ER with Gradual worsening of breathing after progressive tingling of fingers and legs. She currently remains very fatigued even though she is sleeping well. Now recalls that before her stroke she remembers having a bull's eye rash and was seen with severe headaches in [place], [place] - was found to have a [...] a root canal and was sent to [facility] for MRI which was negative but non-contrasted. [...] history goes back to January 2016 in [facility] where she had persisting headaches and slurred speech followed by lower extremity weakness. This took a few months to resolve and she is back to her normal state of being but some point in time during her her next she was seen by Dr. Humera Hyde in [place] as well and was found to have [...] which included preparing to see the patient, [id number] patient care, completing clinical documentation, obtaining and/or reviewing separately obtained history, performing a medically appropriate examination, counseling and educating the pat ient/family/caregiver, ordering medications, tests, or procedures, independently interpreting results (not separately reported), and communicating results to the patient/family/caregiver. Katherine Negrete APRN.CNP Hematology and Oncology Services Provided at: [place], [place] CC: MD Wilton Day, [address] [place] [address] Humaira Gaviria MD [address] [place] [id number] MD Cosmo Kingston MD Michael Blank, MD documented in this encounterK[facility] History of Present illness Narrative* Alisa Saba APRN-BRIDGE SAW OPERATOR - 12/17/2024 3:30 PM EDT REASON FOR OFFICE VISIT: Video Visit via Real-time Synchronous Audiovisual Provider Location: [facility] AT [address] [address] Patient Location: Patient's home Video Visit Consent [...] that there are some limitations compared to [id number] evaluations. The patient consented to the presence [...] TSH 1.25 10/28/2024 No results found for: [id number] No results found for: CREATININE , BUN [...] by e-mail to: or by fax to: [phone] TIME OF CONSULTATION: 45 minutes with the patient, >50% in discussion and counseling, coordination of care which was [id number], review of records and communication back to referring provider. BRENNEN Guillen 12/17/24 1619 documented in this encounterMartin Memorial Hospital08-15-2025 Miscellaneous Notes* Telephone Encounter - [...] 12/17/2024. Sanna verbalized understanding. documented in this encounterMartin Memorial Hospital08-15-2025 Telephone encounter Note* Telephone Encounter [...] Alisa Saba APRN 12/17/2024. Sanna verbalized understanding. [facility] Work Phone: 1(511) 640-439708-15-2025 Miscellaneous Notes* Telephone Encounter - PRISCILLA Sutherland [...] tried higher fiber snacks in the evening. Sql Dba told her that I would relay her concerns to [facility] physician and get back to her. Obtained blood sugars for this week and will scan them into her chart. documented in this encounterMartin Memorial Hospital08-15-2025 Telephone encounter Note* Telephone Encounter [...] tried higher fiber snacks in the evening. Sql Dba told her that I would relay her concerns to [facility] physician and get back to her. Obtained blood sugars for this week and will scan them into her chart. [employer] Work Phone: 1(882) 852-135808-14-2025 History of Present illness Narrative* Rosi Murray, [...] Diagnosis Date Noted 32 weeks gestation of ([facility]) 11/28/2019 Abdominal pain 06/12/2023 Acute bronchitis due to infection 06/12/2023 Acute on chronic vesicular eczema of hands and feet 11/15/2023 Anemia complicating childbirth ([facility]) 01/16/2020 Anticoagulant long-term use 02/22/2020 Antiphospholipid antibody positive 09/10/2017 Antiphospholipid antibody syndrome ([facility]) 07/07/2019 Anxiety 06/12/2023 Blood pressure elevated without history of HTN 11/15/2023 BMI 37.0-37.9, adult 11/15/2023 Cerebral infarction, unspecified ([facility]) 05/16/2019 Cerebrovascular accident (CVA) due to stenosis of middle cerebral artery ([facility]) 02/22/2020 Cervicalgia 02/05/2019 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 ([facility]) 01/08/2020 Coagulation defect, unspecified ([facility]) 02/05/2019 Cold intolerance 11/15/2023 Deficiency of other specified B group vitamins 05/16/2019 Deviated septum 11/15/2023 Dizziness and giddiness 02/05/2019 Dry mouth 11/15/2023 Dysfunction of eustachian tube 06/12/2023 Dyspnea 06/12/2023 Elevated blood pressure reading 11/15/2023 Encounter for supervision of normal , unspecified, first trimester ([facility]) 05/29/2019 Environmental allergies 11/15/2023 Fatigue 12/29/2016 First degree perineal laceration during delivery ([facility]) 01/16/2020 Frequency of micturition 02/19/2019 Genitourinary symptoms 08/19/2021 Gestational diabetes mellitus (GDM) affecting ([facility]) 01/26/2022 H/O: hypothyroidism 11/15/2023 Hematochezia 06/12/2023 [...] anemia 01/16/2020 Irregular uterine bleeding 11/15/2023 problem ([facility]) 06/12/2023 Less than 8 weeks gestation of ([facility]) 06/05/2019 halfway (current) use of antithrombotics/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 02/05/2019 Migraine without aura and without status migrainosus, not intractable 09/12/2017 Morbid obesity ([facility]) 11/15/2023 Muscle fasciculation 08/19/2021 Nasal polyps 11/15/2023 Non-smoker 11/15/2023 NEETA (obstructive sleep apnea) 11/15/2023 Other acute postprocedural pain 02/03/2019 Other general symptoms and signs 10/28/2019 Other immediate hemorrhage ([facility]) 01/16/2020 Other specified noninflammatory disorders of vagina 02/21/2019 Pain in joint 12/29/2016 Palpitations 08/26/2019 Paresthesia of bilateral legs 11/15/2023 Pelvic and perineal pain 02/01/2019 Personal history of urinary (tract) infections 01/16/2020 Pre-diabetes 11/15/2023 Primary hypercoagulable state ([facility]) 08/01/2022 Pruritus, unspecified 01/02/2020 Psychogenic hyperventilation 06/12/2023 Raised antibody titer 09/25/2017 Right lower quadrant pain 11/15/2023 Right otitis externa 11/15/2023 Salivary gland swelling 11/15/2023 Single live ([facility]) 01/15/2020 Snoring 11/15/2023 Speech and language [...] drainage of cyst WISDOM TOOTH EXTRACTION 2007 Jewell teeth REVIEW OF SYSTEMS Review of Systems: [...] nursing note reviewed. Exam conducted with a assistant surveyor present. Vitals: Estimated body mass index is 33.41 kg/m as calculated from the following: Height as of 11/19/23: 5' 6 . Weight as of this encounter: 207 lb. BP: 120/70 Patient's last menstrual period was 07/28/2024. ASSESSMENT & PLAN ICD-10-CM 1. 19 weeks gestation of ([facility]) Z3A.19 POCT urinalysis dipstick manually resulted 2. Second trimester ([facility]) Z34.92 POCT urinalysis dipstick manually resulted 3. Thyroid disease E07.9 4. Multigravida of advanced maternal age in second trimester ([facility]) O09.522 5. Gestational diabetes mellitus (GDM), antepartum, gestational diabetes method of control unspecified ([facility]) O24.419 Patient presents today for a [...] scan and Telemedicine with MFM provider in [place]. Documented by Rosi Murray LPN on behalf of: Wilton Herrmann DO documented in this encounterSSM Health [id number] Miscellaneous Notes* Telephone Encounter - Anni Abreu CMA - 12/03/2024 3:01 PM EDT Left message with patient to call our office to schedule her next appt in 2 week with an PUPPET MAKER/PA. Left call back number and to press option 3 for scheduling. documented in this encounterMartin Memorial Hospital08-06-2025 Telephone encounter Note* Telephone Encounter - Anni Abreu CMA - 12/03/2024 3:01 PM EDT Left message with patient to call our office to schedule her next appt in 2 week with an PUPPET MAKER/PA. Left call back number and to press option 3 for scheduling. [facility]08-06-2025 History of Present illness Narrative* Alisa Tori, VICTOR HUGO-BRIDGE SAW OPERATOR - 12/03/2024 2:00 PM EDT REASON [...] starting insulin. She is being followed at [facility] due to GDMA2. States she is following [...] TSH 1.25 10/28/2024 No results found for: [id number] No results found for: CREATININE , BUN [...] baby. Little research has been done on medical terminologist effects of Metformin exposure to the fetus. [...] by e-mail to: or by fax to: [phone] TIME OF CONSULTATION: 60 minutes with the patient, >50% in discussion and counseling, coordination of care which was [id number], review of records and communication back to referring provider. BRENNEN Guillen 12/03/24 1500 documented in this encounterGreene Memorial HospitalTNT Crowd University [facility] [id number] History of Present illness Narrative* Rosi Murray [...] Diagnosis Date Noted 32 weeks gestation of ([facility]) 11/28/2019 Abdominal pain 06/12/2023 Acute bronchitis due to infection 06/12/2023 Acute on chronic vesicular eczema of hands and feet 11/15/2023 Anemia complicating childbirth ([facility]) 01/16/2020 Anticoagulant long-term use 02/22/2020 Antiphospholipid antibody positive 09/10/2017 Antiphospholipid antibody syndrome ([facility]) 07/07/2019 Anxiety 06/12/2023 Blood pressure elevated without history of HTN 11/15/2023 BMI 37.0-37.9, adult 11/15/2023 Cerebral infarction, unspecified ([facility]) 05/16/2019 Cerebrovascular accident (CVA) due to stenosis of middle cerebral artery ([facility]) 02/22/2020 Cervicalgia 02/05/2019 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 ([facility]) 01/08/2020 Coagulation defect, unspecified ([facility]) 02/05/2019 Cold intolerance 11/15/2023 Deficiency of other specified B group vitamins 05/16/2019 Deviated septum 11/15/2023 Dizziness and giddiness 02/05/2019 Dry mouth 11/15/2023 Dysfunction of eustachian tube 06/12/2023 Dyspnea 06/12/2023 Elevated blood pressure reading 11/15/2023 Encounter for supervision of normal , unspecified, first trimester ([facility]) 05/29/2019 Environmental allergies 11/15/2023 Fatigue 12/29/2016 First degree perineal laceration during delivery ([facility]) 01/16/2020 Frequency of micturition 02/19/2019 Genitourinary symptoms 08/19/2021 Gestational diabetes mellitus (GDM) affecting ([facility]) 01/26/2022 H/O: hypothyroidism 11/15/2023 Hematochezia 06/12/2023 [...] anemia 01/16/2020 Irregular uterine bleeding 11/15/2023 problem ([facility]) 06/12/2023 Less than 8 weeks gestation of ([facility]) 06/05/2019 manager intermediate (current) use of antithrombotics/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 02/05/2019 Migraine without aura and without status migrainosus, not intractable 09/12/2017 Morbid obesity ([facility]) 11/15/2023 Muscle fasciculation 08/19/2021 Nasal polyps 11/15/2023 Non-smoker 11/15/2023 NEETA (obstructive sleep apnea) 11/15/2023 Other acute postprocedural pain 02/03/2019 Other general symptoms and signs 10/28/2019 Other immediate hemorrhage ([facility]) 01/16/2020 Other specified noninflammatory disorders of vagina 02/21/2019 Pain in joint 12/29/2016 Palpitations 08/26/2019 Paresthesia of bilateral legs 11/15/2023 Pelvic and perineal pain 02/01/2019 Personal history of urinary (tract) infections 01/16/2020 Pre-diabetes 11/15/2023 Primary hypercoagulable state ([facility]) 08/01/2022 Pruritus, unspecified 01/02/2020 Psychogenic hyperventilation [...] Date AMA (advanced maternal age) multigravida 35+ ([facility]) Anemia Antiphospholipid syndrome ([facility]) Gestational diabetes ([facility]) Heartburn Hypothyroid Stroke ([facility]) HISTORY PAST MEDICAL HISTORY SOCIAL HISTORY Past Medical History: Diagnosis Date AMA (advanced maternal age) multigravida 35+ ([facility]) Anemia Antiphospholipid syndrome ([facility]) Gestational diabetes ([facility]) Heartburn Hypothyroid Stroke ([facility]CC) Social History [...] drainage of cyst WISDOM TOOTH EXTRACTION 2007 Jewell teeth REVIEW OF SYSTEMS Review of Systems: [...] nursing note reviewed. Exam conducted with a assistant surveyor present. Vitals: Estimated body mass index is 33.57 kg/m as calculated from the following: Height as of 11/19/23: 5' 6 . Weight as of this encounter: 208 lb. BP: 108/76 Patient's last menstrual period was 07/28/2024. ASSESSMENT & PLAN ICD-10-CM 1. Second trimester ([facility]) Z34.92 Alpha fetoprotein, maternal Alpha fetoprotein, maternal 2. 16 weeks gestation of ([facility]) Z3A.16 POCT urinalysis dipstick manually resulted 3. Screening, , for anatomic survey ([facility]) Z36.89 CANCELED: US OB 14+ weeks [...] of: Wilton Herrmann DO documented in this encounterSSM Health [id number] Group counseling note* Group Note - Cindy [...] Face to face time was 100 minutes. [employer] Work Phone: 1([phone]) 101-804507-23-2025 Miscellaneous Notes* Group Note - Cindy Miller [...] time was 100 minutes. documented in this encounterMartin [facility] Telephone encounter Note* Telephone Encounter [...] verified for RTC Rachael Johnson RN [facility]07-09-2025 Miscellaneous Notes* Telephone Encounter - Rachael Johnson [...] were not included. documented in this encounterKet[facility]07-[facility]-20[facility] Telephone encounter Note * Telephone Encounter - Katherine Negrete APRN.CNP - 11/05/2024 12:29 PM EDT Spoke with Dr. Moscoso and she is to continue Lovenox 40 daily and add baby asa (81 mg) daily. Please also make sure she is following OB High risk. Labs acceptable at this time. Will monitor. Thanks, Katherine Negrete APRN.BRIDGE SAW OPERATOR [facility] Work Phone: [phone]) 282-243307-08-2025 Telephone encounter Note* Telephone Encounter - Abbie Jimenez PA-C - 11/04/2024 8:13 AM EDT Katherine saw this patient last and will be able to advise better of the plan of care. Abbie Jimenez PA-C [facility] Work Phone: 1(321) 313-175307-03-2025 History of Present illness Narrative* Rosi Murray [...] Diagnosis Date Noted 32 weeks gestation of ([facility]) 11/28/2019 Abdominal pain 06/12/2023 Acute bronchitis due to infection 06/12/2023 Acute on chronic vesicular eczema of hands and feet 11/15/2023 Anemia complicating childbirth ([facility]) 01/16/2020 Anticoagulant long-term use 02/22/2020 Antiphospholipid antibody positive 09/10/2017 Antiphospholipid antibody syndrome ([facility]) 07/07/2019 Anxiety 06/12/2023 Blood pressure elevated without history of HTN 11/15/2023 BMI 37.0-37.9, adult 11/15/2023 Cerebral infarction, unspecified ([facility]) 05/16/2019 Cerebrovascular accident (CVA) due to stenosis of middle cerebral artery ([facility]) 02/22/2020 Cervicalgia 02/05/2019 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 ([facility]) 01/08/2020 Coagulation defect, unspecified ([facility]) 02/05/2019 Cold intolerance 11/15/2023 Deficiency of other specified B group vitamins 05/16/2019 Deviated septum 11/15/2023 Dizziness and giddiness 02/05/2019 Dry mouth 11/15/2023 Dysfunction of eustachian tube 06/12/2023 Dyspnea 06/12/2023 Elevated blood pressure reading 11/15/2023 Encounter for supervision of normal , unspecified, first trimester ([facility]) 05/29/2019 Environmental allergies 11/15/2023 Fatigue 12/29/2016 First degree perineal laceration during delivery ([facility]) 01/16/2020 Frequency of micturition 02/19/2019 Genitourinary symptoms 08/19/2021 Gestational diabetes mellitus (GDM) affecting ([facility]) 01/26/2022 H/O: hypothyroidism 11/15/2023 Hematochezia 06/12/2023 [...] anemia 01/16/2020 Irregular uterine bleeding 11/15/2023 problem ([facility]) 06/12/2023 Less than 8 weeks gestation of ([facility]) 06/05/2019 halfway (current) use of antithrombotics/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 02/05/2019 Migraine without aura and without status migrainosus, not intractable 09/12/2017 Morbid obesity ([facility]) 11/15/2023 Muscle fasciculation 08/19/2021 Nasal polyps 11/15/2023 Non-smoker 11/15/2023 NEETA (obstructive sleep apnea) 11/15/2023 Other acute postprocedural pain 02/03/2019 Other general symptoms and signs 10/28/2019 Other immediate hemorrhage ([facility]) 01/16/2020 Other specified noninflammatory disorders of vagina 02/21/2019 Pain in joint 12/29/2016 Palpitations 08/26/2019 Paresthesia of bilateral legs 11/15/2023 Pelvic and perineal pain 02/01/2019 Personal history of urinary (tract) infections 01/16/2020 Pre-diabetes 11/15/2023 Primary hypercoagulable state ([facility]) 08/01/2022 Pruritus, unspecified 01/02/2020 Psychogenic hyperventilation 06/12/2023 Raised antibody titer 09/25/2017 Right lower quadrant pain 11/15/2023 Right otitis externa 11/15/2023 Salivary gland swelling 11/15/2023 Single live ([facility]) 01/15/2020 Snoring 11/15/2023 Speech and language [...] Date AMA (advanced maternal age) multigravida 35+ ([facility]) Anemia Antiphospholipid syndrome ([facility]) Gestational diabetes ([facility]) Heartburn Hypothyroid Stroke ([facility]) HISTORY PAST MEDICAL HISTORY SOCIAL HISTORY Past Medical History: Diagnosis Date AMA (advanced maternal age) multigravida 35+ ([facility]) Anemia Antiphospholipid syndrome ([facility]) Gestational diabetes ([facility]) Heartburn Hypothyroid Stroke ([facility]) Social History Tobacco Use Smoking [...] drainage of cyst WISDOM TOOTH EXTRACTION 2007 [place]ell teeth REVIEW OF SYSTEMS Review of Systems: [...] nursing note reviewed. Exam conducted with a assistant surveyor present. Vitals: Estimated body mass index is 33.81 kg/m as calculated from the following: Height as of 11/19/23: 5' 6 . Weight as of this encounter: 209 lb 8 oz. BP: 110/76 Patient's last menstrual period was 07/28/2024. ASSESSMENT & PLAN ICD-10-CM 1. Second trimester ([facility]) Z34.92 POCT urinalysis dipstick manually resulted 2. 13 weeks gestation of ([facility]) Z3A.13 3. Thyroid disease E07.9 4. Multigravida of advanced maternal age in second trimester ([facility]) O09.522 New OB: Patient presents today [...] or undercooked meat, and stay away from [facility]. Patient has been consulted regarding any [...] of: Wilton Herrmann DO documented in this encounterSSM Health [id number] Telephone encounter Note* Telephone Encounter - Valeri Yeung RN - 10/30/2024 8:30 AM EDT Labs resulted. Please advise. Valeri Yeung RN [facility]07-01-2025 Telephone encounter Note* Telephone Encounter - Roberta Haskins - 10/28/2024 2:52 PM EDT Images from the original note were not included. [facility]07-01-2025 NoteHNO ID: [id number] Author: KATHERINE NEGRETE APRN.BRIDGE SAW OPERATOR Service: ? Author Type: Nurse Practitioner Type: Progress Notes Filed: 10/29/2024 21:44 Note Text: NAME: Sanna Rendon CLINIC NO.: [id number] DATE OF SERVICE: October 28, 2024 (Penelope) [...] later in 2018. These were found in [place], [place]. I don't have access to these [...] a target-like rash shortly before presenting to [facility] in 2016 with headaches and was [...] vision changes both have (more content not included)...[facility]07-01-2025 History of Present illness Narrative* Katherine Negrete APRN.BRIDGE SAW OPERATOR - 10/28/2024 2:33 PM EDT Images from the original note were not included. NAME: Sanna Rendon CLINIC NO.: [id number] DATE OF SERVICE: October 28, 2024 (Penelope) [...] later in 2018. These were found in [place], [place]. I don't have access to these [...] a target-like rash shortly before presenting to [facility] in 2016 with headaches and was [...] Monge soon. When she hada stroke in [place], she had symptoms up to a month before: uncontrollable headache, BP was elevated, knee stiffness, and blurry vision. Right facial drooping [facility]. [facility]. [...] and stayed on Lovenox Hgb 13.1 @ [facility] Recommended ER if persisting bleeding but she [...] and at age 69. Both lived in [place], [place] - but she was adopted. She was not able to see ID in October and will be seeing Dr. Baugh next week. Also will have her see Dr. Hamlin for her clotting disorder and make any other recommendations to optimize her treatment. Updated Visit, October 08, 2020: Telephone only Received call from pt stating she was seen in [facility] ER for numbness in her chest, throat, and extremities, and sob which has been worsening over the last week. We arranged a telephone visit for her chanw questions with me. Sanna Rendon is a 34 year old female seen for Hypercoagulable state and recent concerns and symptoms that required her to be seen at [facility] ER. She went to the ER with Gradual worsening of breathing after progressive tingling of fingers and legs. She currently remains very fatigued even though she is sleeping well. Now recalls that before her stroke she remembers having a bull's eye rash and was seen with severe headaches in [place] - was found to have a [...] a root canal and was sent to [facility] for MRI which was negative but non-contrasted. [...] history goes back to January 2016 in [facility] where she had persisting headaches and slurred speech followed by lower extremity weakness. This took a few months to resolve and she is back to her normal state of being but some point in time during her her next she was seen by Dr. Humera Hyde in [place] as well and was found to have [...] which included preparing to see the patient, aeun-fj-qqci patient care, completing clinical documentation, obtaining and/or reviewing separately obtained history, performing a medically appropriate examination, counseling and educating the pat ient/family/caregiver, ordering medications, tests, or procedures, independently interpreting results (not separately reported), and communicating results to the patient/family/caregiver. Katherine Negrete APRN.TOR Hematology [facility] Oncology Services Provided at: [place], [place] CC: MD Chalino [facility] [address] [place] [address] Humaira Gaviria MD [address] [place] [id number] MD Cosmo Kingston MD Michael Blank, MD documented in this encounterKet[facility]06-27-2025 Telephone encounter Note * Telephone Encounter - Kaur Dunham MA - 10/24/2024 2:14 PM EDT New orders may need placed for appt on 10/28. Kaur Dunham MA [facility]06-27-2025 Miscellaneous Notes* Telephone Encounter - Kaur Dunham MA - 10/24/2024 2:14 PM EDT New orders may need placed for appt on 10/28. Kaur Dunham MA documented in this encounterKettering Health [facility]06-16-2025 Miscellaneous Notes* Telephone Encounter - Margo Khan RN - 10/13/2024 12:14 PM EDT Attempted to contact patient x3, call cannot be completed, cannot receive calls at this time. Unable to leave a voicemail. documented in this encounterMartin [facility] Hospital06-16-2025 Telephone encounter Note* Telephone Encounter - Margo Khan RN - 10/13/2024 12:14 PM EDT Attempted to contact patient x3, call cannot be completed, cannot receive calls at this time. Unable to leave a voicemail. [facility]06-05-[facility] History of Present illness Narrative* [...] positive 09/10/2017 Antiphospholipid antibody syndrome ([facility]) 07/07/2019 Anxiety 06/12/2023 Blood pressure elevated without history of HTN 11/15/2023 BMI 37.0-37.9, adult 11/15/2023 Cerebral infarction, unspecified 05/16/2019 Cerebrovascular accident (CVA) due to stenosis of middle cerebral artery ([facility]) 02/22/2020 Cervicalgia 02/05/2019 [...] Less than 8 weeks gestation of 06/05/2019 halfway (current) use of antithrombotics/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 02/05/2019 Migraine without aura and without status migrainosus, not intractable ([facility]) 09/12/2017 Morbid obesity ([facility]) 11/15/2023 Muscle fasciculation 08/19/2021 Nasal [...] Pre-diabetes 11/15/2023 Primary hypercoagulable state ([facility]) 08/01/2022 Pruritus, unspecified 01/02/2020 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[facility]) 06/12/2023 Raised antibody titer 09/25/2017 Right lower quadrant pain 11/15/2023 Right otitis externa 11/15/2023 Salivary gland swelling 11/15/2023 Single live 01/15/2020 Snoring 11/15/2023 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) 12/30/2019 Suspected severe acute respiratory syndrome coronavirus 2 (SARS-CoV-2) infection 06/12/2023 SVT (supraventricular tachycardia) ([facility]) 08/26/2019 Syncope and [...] (CMS/HCC) Gestational diabetes Heartburn Hypothyroid (CMS/HCC) Stroke ([facility]) Family History Problem Relation Name [...] drainage of cyst WISDOM TOOTH EXTRACTION 2007 [place]ell teeth Allergies Allergen Reactions Ciprofloxacin GI intolerance [...] TSH Nurse Note: Patient desires to have [place] billion to one. Pt was advised to [...] or undercooked meat, and stay away from [facility]. Patient has also been advised to [...] by: Lala Hess MA documented in this encounterSSM Health [id number] NotePatient Education Infectious Disease Upper Respiratory Infection, [...] to help relieve symptoms, such as: ??? Nnwp-nyj-gitmnzi cold medicines. ??? Cough suppressants. Coughing is [...] other clear broths. General instructions ??? Take erln-rao-urjzjnh and prescription medicines only as told by [...] and water are not available, use hand instructional writer. ??? Avoid touching your mouth, face, eyes, [...] a stiff neck. ? (more content not included)...[facility]05-07-2025 Miscellaneous Notes* Telephone Encounter - Rachael [...] Rachael Johnson RN documented in this encounterKettering Health [facility]05-07-2025 Telephone encounter Note * Telephone Encounter - Rachael Johnson RN - 09/03/2024 1:25 PM EDT Pt notified and appt for September. She denies any further questions, needs or concerns at thistime. Rachael Johnson RN [facility]05-07-2025 Telephone encounter Note* Telephone Encounter - Kristofer Calix MD - 09/03/2024 12:51 PM EDT No change in meds. [facility]05-06-2025 Telephone encounter Note* Telephone Encounter - Rachael Johnson RN - 09/02/2024 9:37 AM EDT Pt left a voicemail to inform she is approximately 5 weeks . She is asking any recommendations on med changes. Pt missed today's appt. Called and left VM to please call and schedule missed follow up MUNIRA. Fely: Please advise Rachael Johnson RN [facility]04-29-2025 Telephone encounter Note* Telephone Encounter - Serina Dawson MA - 08/26/2024 3:41 PM EDT Patient has an appt on 08/27/24. Would you like labs, if so place orders. Serina Dawson MA [facility]04-29-2025 Miscellaneous Notes* Telephone Encounter - Serina Horton MA - 08/26/2024 3:41 PM EDT Patient has an appt on 08/27/24. Would you like labs, if so place orders. Serina Dawson MA documented in this encounterKettering Health [facility]04-08-2025 Evaluation + Plan note Future Scheduled Tests Laboratory* HgbA1c 08/05/24 * HgbA1c 11/04/24 Radiology* CT Soft Tissue Neck w/ Contrast 11/12/23 [facility] 03-27-2025 History of Present illness Narrative* Rosi Spitler, CHRISTIAN COUNSELOR - 07/24/2024 11:50 AM EDT Reason for [...] positive 09/10/2017 Antiphospholipid antibody syndrome ([facility]) 07/07/2019 Anxiety 06/12/2023 Blood pressure elevated without history of HTN 11/15/2023 BMI 37.0-37.9, adult 11/15/2023 Cerebral infarction, unspecified ([facility]) 05/16/2019 Cerebrovascular accident (CVA) due to stenosis of middle cerebral artery ([facility]) 02/22/2020 Cervicalgia 02/05/2019 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 Coagulation defect, unspecified ([facility]) 02/05/2019 Cold intolerance 11/15/2023 Deficiency of other [...] Less than 8 weeks gestation of 06/05/2019 halfway (current) use of antithrombotics/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 02/05/2019 Migraine without aura and without status migrainosus, not intractable ([facility]) 09/12/2017 Morbid obesity ([facility]) 11/15/2023 Muscle fasciculation 08/19/2021 Nasal [...] infection 06/12/2023 SVT (supraventricular tachycardia) ([facility]) 08/26/2019 Syncope and collapse 06/03/2018 Other bacterial [...] drainage of cyst WISDOM TOOTH EXTRACTION 2007 [place]ell teeth REVIEW OF SYSTEMS Review of Systems: [...] nursing note reviewed. Exam conducted with a assistant surveyor present. Vitals: Estimated body mass index is [...] of: Wilton Herrmann DO documented in this encounterSSM Health [id number] NotePatient Education Emergency Medicine Bradycardia, Adult Bradycardia is a sdeafr-rdbk-wtghpb heartbeat. A normal resting heart rate for [...] ??? Follow a heart-healthy diet. A nutritional services host (dietitian) can help educate you about healthy [...] liquor (44 mL). General instructions ??? Take jwjq-aif-ovdvblj and prescription medicines only as told by [...] irregular heartbeat (palpitations). ??? (more content not included)...[facility]03-03-2025 Hospital Discharge instructions Patient Education 06/30/2024 [...] Follow these instructions at home: Medicines Give gtwg-ott-cwucmgc and prescription medicines only as told by [...] find more information PANDAS Network: pandasnetwork.org National [place] of Mental Health: [facility].nih.gov Contact a health care provider [...] the National Suicide Prevention Lifeline at or 243. This is open 24 hours a day. Text the Crisis Text Line at 773064. Summary Pediatric autoimmune neuropsychiatric disorders associated with [...] provider. Document Revised: 01/09/2022 Document Reviewed: 01/09/2022 [employer] Patient Education 2023 MYFX. 06/30/2024 09:20:50 Common Variable Immunodeficiency Common Variable [...] Follow these instructions at home: Medicines Take ngpx-teq-uyiphec and prescription medicines only as told by [...] disease. Where to find more information National [place] of Allergy and Infectious Disease: www.niaid.nih.gov [...] risk for frequent or unusual infections. Take lrke-nap-zdtsqxq and prescription medicines only as told by [...] provider. Document Revised: 11/18/2021 Document Reviewed: 11/18/2021 [employer] Patient Education 2023 MYFX. 06/30/2024 09:18:06 DASH Eating Plan DASH Eating [...] Dairy Whole or 2% milk, cream, and xkom-vua-fknu. Whole or full-fat cream cheese. Whole-fat or [...] more information National Heart, Lung, and Blood [place] (NHLBI): nhlbi.nih.gov [place] Heart Association (AHA): heart.org Academy of Nutrition and Dietetics: eatright.org National Kidney Foundation (NKF): kidney.org This information is not intended to replace advice given to you by your health care provider. Make sure you discuss any questions you have with your health care provider. Document Revised: 05/03/2023 Document Reviewed: 05/03/2023 Elsevier Patient Education 2023 [employer] Follow Up Care 06/25/2024 13:53:59 With:PRAVEEN RESENDEZ FAAFP, CHRIS Perez, PED Address: [place] [address]- When:Within 2 Month(s) [facility] 03-03-2025 NotePatient Education Immunology [...] these instructions at home: Medicines ??? Take eywu-pfq-qcbddme and prescription medicines only as told by [...] Where to find more information ??? National [place] of Allergy and Infectious Disease: www.niaid.nih.gov Contact a health care provider if: ??? You have a fever. ??? You have any symptoms of infection such as chills, worsening cough, or severe earache. ??? You make high-pitched whistling sounds when you breathe, most often when you breathe out (wheeze). (more content not included)...[facility]02-24-2025 History of Present illness Narrative* Rosi Murray, DEB - 06/23/2024 3:00 PM EST Reason for Appointment: Patient ID: Sanna Rednon is a 38 y.o. 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 Coagulation defect, unspecified ([facility]) 02/05/2019 Cold intolerance 11/15/2023 Deficiency [...] Less than 8 weeks gestation of 06/05/2019 manager intermediate (current) use of antithrombotics/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 02/05/2019 Migraine without aura and without status migrainosus, not intractable ([facility]) 09/12/2017 Morbid obesity ([facility]) 11/15/2023 Muscle fasciculation 08/19/2021 Nasal [...] Pre-diabetes 11/15/2023 Primary hypercoagulable state ([facility]) 08/01/2022 Pruritus, unspecified 01/02/2020 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[facility]) 06/12/2023 Raised antibody titer 09/25/2017 Right lower quadrant pain 11/15/2023 Right otitis externa 11/15/2023 Salivary gland swelling 11/15/2023 Single live 01/15/2020 Snoring 11/15/2023 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) 12/30/2019 Suspected severe acute respiratory syndrome coronavirus 2 (SARS-CoV-2) infection 06/12/2023 SVT (supraventricular tachycardia) ([facility]) 08/26/2019 Syncope and collapse 06/03/2018 Other bacterial infections of unspecified site 06/27/2019 Thrombocytopenia, unspecified ([facility]) 11/20/2019 Hypoglycemia 06/12/2023 Unspecified condition associated with female genital organs and menstrual cycle 05/09/2019 Unspecified ovarian cyst, right side 02/06/2019 Urinary tract infection 10/16/2019 Referred otalgia of right ear 11/19/2023 LPRD (laryngopharyngeal reflux disease) 11/19/2023 Resolved Ambulatory Problems Diagnosis Date Noted No Resolved Ambulatory Problems Past Medical History: Diagnosis Date AMA (advanced maternal age) multigravida 35+ Anemia Antiphospholipid syndrome ([facility]) Gestational diabetes Heartburn Hypothyroid ([facility]) Stroke ([facility]) HISTORY PAST MEDICAL HISTORY SOCIAL HISTORY Past Medical History: Diagnosis Date AMA (advanced maternal age) multigravida 35+ Anemia Antiphospholipid syndrome ([facility]) Gestational diabetes Heartburn Hypothyroid ([facility]) Stroke ([facility]) Social History Tobacco Use Smoking [...] drainage of cyst WISDOM TOOTH EXTRACTION 2007 [place] teeth REVIEW OF SYSTEMS Review of Systems: [...] nursing note reviewed. Exam conducted with a assistant surveyor present. Vitals: Estimated body mass index is [...] of: Wilton Herrmann DO documented in this encounterSSM Health [id number] Hospital Discharge instructions Patient Education 06/09/2024 14:23:47 [...] Do not chew gum. General instructions Take faro-yax-holuobh and prescription medicines only as told by [...] important. Where to find more information [employer] [place] [employer]: www.nidcr.nih.gov [...] provider. Document Revised: 11/27/2021 Document Reviewed: 11/27/2021 [employer] Patient Education 2023 MYFX. Follow Up Care 06/06/2024 11:26:13 With:PRAVEEN RESENDEZ FAAFP, Penelope Tony, CHRIS, PED Address: [address], [place] [address]- When:Within 6 Month(s) [facility] 02-10-2025 NotePatient Education Orthopedics [...] not chew gum. General instructions ??? Take yjou-nrf-vdilbby and prescription medicines only as told by [...] Where to find more information ??? [employer] [place] [employer]: www.nidcr.nih.gov [...] provider. Document Revised: 11/27/2021 Document Reviewed: 11/27/2021 [employer] Patient Education ? 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 Coagulation defect, unspecified ([facility]) 02/05/2019 Cold intolerance 11/15/2023 Deficiency [...] Less than 8 weeks gestation of 06/05/2019 halfway (current) use of antithrombotics/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 02/05/2019 Migraine without aura and without status migrainosus, not intractable ([facility]) 09/12/2017 Morbid obesity ([facility]) 11/15/2023 Muscle fasciculation 08/19/2021 Nasal [...] Pre-diabetes 11/15/2023 Primary hypercoagulable state ([facility]) 08/01/2022 Pruritus, unspecified 01/02/2020 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[facility]) 06/12/2023 Raised antibody titer 09/25/2017 Right lower quadrant pain 11/15/2023 Right otitis externa 11/15/2023 Salivary gland swelling 11/15/2023 Single live 01/15/2020 Snoring 11/15/2023 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) 12/30/2019 Suspected severe acute respiratory syndrome coronavirus 2 (SARS-CoV-2) infection 06/12/2023 SVT (supraventricular tachycardia) ([facility]) 08/26/2019 Syncope and collapse 06/03/2018 Other bacterial infections of unspecified site 06/27/2019 Thrombocytopenia, unspecified ([facility]) 11/20/2019 Hypoglycemia 06/12/2023 Unspecified condition [...] drainage of cyst WISDOM TOOTH EXTRACTION 2007 Jewell teeth REVIEW OF SYSTEMS Review of Systems: [...] nursing note reviewed. Exam conducted with a assistant surveyor present. Vitals: Estimated body mass index is [...] Patient had recent HCG level drawn at [facility] 05/31/2024 lab value was 6. Documented by Renate Vegas LPN on behalf of: Wilton Herrmann DO documented in this encounterSSM Health [id number] Telephone encounter Note* Telephone Encounter - Taylor Escudero - 05/28/2024 1:45 PM EST Triage to call with iron results [facility]01-29-2025 Miscellaneous Notes* Telephone Encounter - Taylor Escudero - 05/28/2024 1:45 PM EST Triage to call with iron results documented in this encounterKettering Health [facility]01-29-2025 Instructions* Patient Instructions* Nathaly Florence - 05/28/2024 1:44 PM EST Triage to call iron results Continue Lovenox - patient prefers 40 mg (rather than rec 80mg) Encouraged her to reconsider Take B12 supplement in the form of a sublingual tablet RTC in 3 months Labs same day or 2-7 days prior documented in this encounterKettering Health [facility]01-29-2025 History of Present illness Narrative* Kristofer Calix MD - 05/28/2024 1:00 PM EST Images from the original note were not included. NAME: Sanna Rendon CLINIC NO.: [id number] DATE OF SERVICE: May 28, 2024 (Levon) [...] later in 2018. These were found in [place], [place]. I don't have access to these [...] a target-like rash shortly before presenting to [facility] in 2015 with headaches and was [...] Monge soon. When she hada stroke in [place], she had symptoms up to a month before: uncontrollable headache, BP was elevated, knee stiffness, and blurry vision. Right facial drooping [facility] to [facility]. [...] and stayed on Lovenox Hgb 13.1 @ [facility] Recommended ER if persisting bleeding but she [...] 11 weeks. Updated Visit, March 27, 2022: Snana is 36 years old and is doing [...] and at age 69. Both lived in [place], [place] - but she was adopted. She was not able to see ID in October and will be seeing Dr. Baugh next week. Also will have her see Dr. Hamlin for her clotting disorder and make any other recommendations to optimize her treatment. Updated Visit, October 08, 2020: Telephone only Received call from pt stating she was seen in [facility] ER for numbness in her chest, throat, and extremities, and sob which has been worsening over the last week. We arranged a telephone visit for her toreview questions with me. Sanna Rendon is a 34 year old female seen for Hypercoagulable state and recent concerns and symptoms that required her to be seen at [facility] ER. She went to the ER with Gradual worsening of breathing after progressive tingling of fingers and legs. She currently remains very fatigued even though she is sleeping well. Now recalls that before her stroke she remembers having a bull's eye rash and was seen with severe headaches in [place], [place] - was found to have a [...] a root canal and was sent to [facility] for MRI which was negative but non-contrasted. [...] history goes back to January 2016 in [facility] where she had persisting headaches and slurred speech followed by lower extremity weakness. This took a few months to resolve and she is back to her normal state of being but some point in time during her her next she was seen by Dr. Humera Hyde in [place] as well and was found to have [...] which included preparing to see the patient, vbnq-pn-mhxw patient care, completing clinical documentation, performing a medically appropriate examination, counseling and educating the patient/family/caregiver, ordering medications, tests, or p rocedures, independently interpreting results (not separately reported), communicating results to the patient/family/caregiver, and care coordination (not separately reported). Kristofer Calix MD, CPE Hematology and Oncology Services Provided at: [place], [place] Scribe Attestation: This note was scribed [...] under my direction. CC: MD Wilton Day, [address] [place] [address] Humaira Gaviria MD [address] [place] [address] [place] [address] MD Cosmo Kingston MD Michael Blank, MD documented in this encounterKettering Health [facility]01-29-2025 NoteHNO ID: [id number] Author: KRISTOFER CALIX MD Service: ? Author Type: Physician Type: Progress Notes Filed: 05/29/2024 09:13 Note Text: NAME: Sanna Rendon CLINIC NO.: [id number] DATE OF SERVICE: May 28, 2024 (Levon) [...] later in 2018. These were found in [place], [place]. I don't have access to these [...] a target-like rash shortly before presenting to [facility] in 2016 with headaches and was [...] soon. When she had a stroke in [place], she had symptoms up to a month [...] breast feeding. Updated Visit, (more content not included)...[facility] 05-14-2024 Telephone encounter Note* Telephone Encounter - Rachael Johnson RN - 05/14/2024 10:15 AM EST Pt called to inform she had a miscarriage, Sunday (05/10/24) Asking if any additional blood work was needed from out standpoint. Pt aware we will be checking her CBC for any signs of anemia and her iron studies for deficiency. 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 investigator or PCP request any additional testing, we can certainly draw with her appt 05/21 (will just need to fax orders). She denies any further questions needs or concerns at this time. MARSHA Rushk: YANET [facility]01-15-2025 Miscellaneous Notes* Telephone Encounter - Rachael Johnson RN - 05/14/2024 10:15 AM EST Pt called to inform she had a miscarriage, Sunday (05/10/24) Asking if any additional blood work was needed from out standpoint. Pt aware we will be checking her CBC for any signs of anemia and her iron studies for deficiency. 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 investigator or PCP request any additional testing, we can certainly draw with her appt 05/21 (will just need to fax orders). She denies any further questions needs or concerns at this time. MARSHA Rushk: YANET documented in this encounterKettering Health [facility]01-15-2025 Telephone encounter Note * Telephone Encounter - [...] thinnersat follow up appointment. PVU--Rosi Presley LPN [facility] [id number] Miscellaneous Notes* Telephone Encounter - Rosi Murray [...] appointment. PVU--Rosi Presley LPN documented in this encounterSSM Health [id number] History of Present illness Narrative* Pamela Walter [...] Less than 8 weeks gestation of 06/05/2019 halfway (current) use of antithrombotics/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 02/05/2019 Migraine without aura and without status migrainosus, not intractable ([facility]) 09/12/2017 Morbid obesity ([facility]) 11/15/2023 Muscle fasciculation 08/19/2021 Nasal [...] infections 01/16/2020 Pre-diabetes 11/15/2023 Primary hypercoagulable state ([facility]) 08/01/2022 Pruritus, unspecified 01/02/2020 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[facility]) 06/12/2023 Raised antibody titer 09/25/2017 Right lower quadrant pain 11/15/2023 Right otitis externa 11/15/2023 Salivary gland swelling 11/15/2023 Single live 01/15/2020 Snoring 11/15/2023 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) 12/30/2019 Suspected severe acute respiratory syndrome coronavirus 2 (SARS-CoV-2) infection 06/12/2023 SVT (supraventricular tachycardia) ([facility]) 08/26/2019 Syncope and collapse 06/03/2018 Other bacterial infections of unspecified site 06/27/2019 Thrombocytopenia, unspecified ([facility]) 11/20/2019 Hypoglycemia 06/12/2023 Unspecified condition associated with female genital organs and menstrual cycle 05/09/2019 Unspecified ovarian cyst, right side 02/06/2019 Urinary tract infection 10/16/2019 Referred otalgia of right ear 11/19/2023 LPRD (laryngopharyngeal reflux disease) 11/19/2023 Resolved Ambulatory Problems Diagnosis Date Noted No Resolved Ambulatory Problems Past Medical History: Diagnosis Date AMA (advanced maternal age) multigravida 35+ Anemia Antiphospholipid syndrome ([facility]) Gestational diabetes Heartburn Hypothyroid ([facility]) Stroke ([facility]) HISTORY PAST MEDICAL HISTORY SOCIAL HISTORY Past Medical History: Diagnosis Date AMA (advanced maternal age) multigravida 35+ Anemia Antiphospholipid syndrome ([facility]) Gestational diabetes Heartburn Hypothyroid ([facility]) Stroke ([facility]) Social History Tobacco Use Smoking [...] drainage of cyst WISDOM TOOTH EXTRACTION 2007 Jewell teeth REVIEW OF SYSTEMS Review of Systems: [...] nursing note reviewed. Exam conducted with a assistant surveyor present. Vitals: Estimated body mass index is [...] urinalysis dipstick manually resulted documented in this encounterSSM Health [id number] History of Present illness Narrative* Ariane Joseph [...] positive 09/10/2017 Antiphospholipid antibody syndrome ([facility]) 07/07/2019 Anxiety 06/12/2023 Blood pressure elevated without history of HTN 11/15/2023 BMI 37.0-37.9, adult 11/15/2023 Cerebral infarction, unspecified ([facility]) 05/16/2019 Cerebrovascular accident (CVA) due to stenosis of middle cerebral artery ([facility]) 02/22/2020 Cervicalgia 02/05/2019 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 Coagulation defect, unspecified ([facility]) 02/05/2019 Cold intolerance 11/15/2023 Deficiency [...] Less than 8 weeks gestation of 06/05/2019 manager intermediate (current) use of antithrombotics/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 02/05/2019 Migraine without aura and without status migrainosus, not intractable ([facility]) 09/12/2017 Morbid obesity ([facility]) 11/15/2023 Muscle fasciculation 08/19/2021 Nasal [...] Pre-diabetes 11/15/2023 Primary hypercoagulable state ([facility]) 08/01/2022 Pruritus, unspecified 01/02/2020 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[facility]) 06/12/2023 Raised antibody titer 09/25/2017 Right lower quadrant pain 11/15/2023 Right otitis externa 11/15/2023 Salivary gland swelling 11/15/2023 Single live 01/15/2020 Snoring 11/15/2023 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) 12/30/2019 Suspected severe acute respiratory syndrome coronavirus 2 (SARS-CoV-2) infection 06/12/2023 SVT (supraventricular tachycardia) ([facility]) 08/26/2019 Syncope and collapse 06/03/2018 Other bacterial infections of unspecified site 06/27/2019 Thrombocytopenia, unspecified ([facility]) 11/20/2019 Hypoglycemia 06/12/2023 Unspecified condition associated with female genital organs and menstrual cycle 05/09/2019 Unspecified ovarian cyst, right side 02/06/2019 Urinary tract infection 10/16/2019 Referred otalgia of right ear 11/19/2023 LPRD (laryngopharyngeal reflux disease) 11/19/2023 Resolved Ambulatory Problems Diagnosis Date Noted No Resolved Ambulatory Problems Past Medical History: Diagnosis Date AMA (advanced maternal age) multigravida 35+ Anemia Antiphospholipid syndrome ([facility]) Gestational diabetes Heartburn Hypothyroid ([facility] Stroke ([facility]) Family History Problem Relation Name [...] drainage of cyst WISDOM TOOTH EXTRACTION 2007 Jewell teeth Allergies Allergen Reactions Ciprofloxacin GI intolerance [...] or undercooked meat, and stay away from [facility]. Patient has also been advised to [...] by: Ariane Joseph LPN documented in this encounterSSM Health [id number] Telephone encounter Note* Telephone Encounter - Rachael Johnson RN - 02/28/2024 8:21 AM EDT Pt aware and agreeable to plan of care. Pt denies any further questions, needs or concerns at this time. Appt verified for lab/follow up Rachael Johnson RN [facility]10-31-2024 Miscellaneous Notes* Telephone Encounter - Rachael Johnson [...] Rachael Johnson RN documented in this encounterKettering Health [facility]10-30-2024 Telephone encounter Note * Telephone Encounter - Kristofer Calix MD - 02/27/2024 4:36 PM EDT She can take the iron with prenatals. We should March labs as scheduled. [facility]10-30-2024 Telephone encounter Note* Telephone Encounter - Rachael Johnson RN - 02/27/2024 9:41 AM EDT Pt 4 weeks and inquiring if she should have March's lab work completed now or wait until scheduled appt. Pt last labs completed 01/02/24. Pt also would like to know if it is okay to take with iron? Fely: Please advise Rachael Johnson RN [facility]10-08-2024 Hospital Discharge instructions Patient Education 02/05/2024 14:07:02 [...] condition. Follow these instructions at home: Take ijut-axx-zkbhgaw and prescription medicines only as told by [...] and water are not available, use hand instructional writer. Avoid contact with people who have cold [...] it is easier to cough up. Take gfps-ehy-sniossc and prescription medicines only as told by [...] provider. Document Revised: 07/27/2022 Document Reviewed: 08/17/2021 [employer] Patient Education 2023 MYFX. Follow Up Care 02/04/2024 08:47:42 With:PRAVEEN RESENDEZ FAAFP, CHRIS Perez, PED Address: [address] [place] [address], [facility] [place] [phone]- When:Within 3 Month(s) [facility] 10-08-2024 NotePatient Education Pulmonary [...] Follow these instructions at home: ? Take inal-zpn-jianzrf and prescription medicines only as told by [...] and water are not available, use hand instructional writer. ? Avoid contact with people who have [...] is easier to cough up. ? Take uifk-uve-gezkzpy and (more content not included)...[facility]10-05-2024 Hospital Discharge instructions Follow Up Care 02/02/2024 11:19:56 With:Anni Bernstein MD, [facility], MED Address: [address] [place] [phone] When: only if needed [facility] 09-09-2024 Miscellaneous Notes* Telephone [...] results. Thank you documented in this encounterKettering Health Dayton09-09-2024 Telephone encounter Note * Telephone Encounter - Valeri Yeung RN - 01/07/2024 8:29 AM EDT No need for IV iron per CC'd chart from Dr. Calix. Attempt to call pt to notify. Left detailed message on, along with call back number on voicemail. Valeri Yeung RN [facility]09-04-2024 Telephone encounter Note* Telephone Encounter - Marleen Mcdonald - 01/02/2024 2:[address] Luna is requesting Triage to call Sanna with her FE results. Thank you [facility]09-04-2024 Instructions* Patient Instructions* Nathaly Florence - 01/02/2024 2:08 PM EDT Triage to call iron results Continue Lovenox - patient prefers 40 mg (rather than rec 80mg) Encouraged her to reconsider Take B12 supplement in the form of a sublingual tablet RTC in 3 months Labs same day Vitamin D, TSH, Calcium with CMP documented in this encounterKettering Health Dayton09-04-2024 Nurse Note* Serina Horton MA - 01/02/2024 [...] but was negative. Serina Dawson MA [facility]09-04-2024 Nurse Note* Serina Dawson MA - 01/02/2024 [...] Serina Dawson MA documented in this encounterKettering Health Dayton09-04-2024 History of Present illness Narrative* Kristofer Calix MD - 01/02/2024 1:45 PM EDT Images from the original note were not included. NAME: Sanna Rendon CLINIC NO.: [id number] DATE OF SERVICE: January 02, 2024 (Levon) [...] later in 2018. These were found in [place], [place]. I don't have access to these [...] a target-like rash shortly before presenting to [facility] in 2016 with headaches and was [...] Monge soon. When she hada stroke in [place], she had symptoms up to a month before: uncontrollable headache, BP was elevated, knee stiffness, and blurry vision. Right facial drooping and difficulty speaking [facility] She continues to take vitamins. [...] and stayed on Lovenox Hgb 13.1 @ [facility] Recommended ER if persisting bleeding but she [...] 69. Both lived in [facility] but she was adopted. She was not able to see ID in October and will be seeing Dr. Baugh next week. Also will have her see Dr. Hamlin for her clotting disorder and make any other recommendations to optimize her treatment. Updated Visit, October 08, 2020: Telephone only Received call from pt stating she was seen in [facility] ER for numbness in her chest, throat, and extremities, and sob which has been worsening over the last week. We arranged a telephone visit for her toreview questions with me. Sanna Rendon is a 34 year old female seen for Hypercoagulable state and recent concerns and symptoms that required her to be seen at [facility] ER. She went to the ER with Gradual worsening of breathing after progressive tingling of fingers and legs. She currently remains very fatigued even though she is sleeping well. Now recalls that before her stroke she remembers having a bull's eye rash and was seen with severe headaches in [facility] was found to have a stroke [...] a root canal and was sent to [facility] for MRI which was negative but non-contrasted. [...] history goes back to January 2016 in [facility] where she had persisting headaches and slurred speech followed by lower extremity weakness. This took a few months to resolve and she is back to her normal state of being but some point in time during her her next she was seen by Dr. Humera Hyde in [place] as well and was found to have [...] which included preparing to see the patient, npyl-bf-wftm patient care, completing clinical documentation, performing a medically appropriate examination, counseling and educating the patient/family/caregiver, ordering medications, tests, or p rocedures, independently interpreting results (not separately reported), communicating results to the patient/family/caregiver, and care coordination (not separately reported). Kristofer Calix MD, CPE Hematology and Oncology Services Provided at: [place], [place] Scribe Attestation: This note was scribed [...] under my direction. CC: MD Wilton Day, [address] [place] [address] Humaira Gaviria MD [address] [place] [id number] MD Cosmo Kingston MD Michael Blank, MD documented in this encounterKettering Health Dayton08-19-2024 Telephone encounter Note * Telephone Encounter - Rachael Johnson RN - 12/17/2023 12:57 PM EDT Pt updated and will follow up with PCP. Denies further questions, needs or concerns at this time for our provider. Rachael Johnson RN [facility]08-19-2024 Miscellaneous Notes* Telephone Encounter - Rachael Johnson [...] IV Iron 11/29/23? documented in this encounterKettering Health Dayton08-19-2024 Telephone encounter Note * Telephone Encounter - Kristofer Calix MD - 12/17/2023 12:52 PM EDT No - sounds like she has some infectious process going on - would rec PCP. [facility]08-19-2024 Telephone encounter Note* Telephone Encounter - Rachael [...] delayed reaction to IV Iron 11/29/23? [facility]08-01-2024 History of Present illness Narrative* Becki Gutierrez RN - 11/29/2023 2:01 PM EDT Y Y documented in this encounterKettering Health [facility]08-01-2024 Telephone encounter Note * Telephone Encounter - Rachael Johnson RN - 11/29/2023 12:45 PM EDT MARSHA Connell, treatment aware of changes. [facility]08-01-2024 Miscellaneous Notes* Telephone Encounter - Rachael Johnson [...] different iron formulation. documented in this encounterKettering Health Dayton08-01-2024 Telephone encounter Note * Telephone Encounter - Rachael Johnson RN - 11/29/2023 12:41 PM EDT Spoke with pt. She will obtain Pepcid OTC from our retail pharmacy on arrival to take (1) 20 mg tablet. She is aware and agreeable to IV steroid for infusion as well. Rachael Johnson RN [facility]08-01-2024 Telephone encounter Note* Telephone Encounter - Raissa Aly RPh - 11/29/2023 12:40 PM EDT A one time dose of dexamethasone is safe when . I added 8mg to the plan for your review. Please adjust dose if necessary. Thanks, Raissa Aly RPh [facility] Work Phone: [phone] Telephone encounter Note* Telephone Encounter - Raissa Aly RPh - 11/29/2023 12:34 PM EDT Famotidine is safe when . Do we want to administer the venofer slower? What rate? Thanks, Raissa Aly [facility]08-01-2024 Telephone encounter Note* Telephone Encounter - Rachael Johnson RN - 11/29/2023 11:56 AM EDT Called and discussed with pt. She is and cannot take Benadryl. She is reluctant to take Pepcid. Attempted to call retail, infusion pharmacy and [facility], no answer, to ask safety of pepcid in . Pharm/Fely: please advise Rachael Johnson RN [facility]08-01-2024 Telephone encounter Note* Telephone Encounter - Kristofer [...] to choose a different iron formulation. [facility]07-18-2024 History of Present illness Narrative* Alison Linares RN - 11/15/2023 1:42 PM EDT Pt reports having nausea and lightheadedness this morning. She has seen her pcp regarding these symptoms and is being worked up to figure out the cause. documented in [facility] encounterK[facility] Telephone encounter Note * Telephone Encounter - Evelyn Sanabria - 11/15/2023 9:19 AM EDT 1st report of treatment-Non oncology regimen (Venofer) Patient holds Medicaid coverage and there isno available FA at this time. [facility]07-18-2024 Miscellaneous Notes* Telephone Encounter - Domo Cat Evelyn Radha - 11/15/2023 9:19 AM EDT 1st report of treatment-Non oncology regimen (Venofer) Patient holds Medicaid coverage and there isno available FA at this time. documented in this encounterK[facility] Hospital Discharge instructions Patient Education 11/09/2023 15:56:11 [...] your hypoglycemia. Where to find more information [place] Diabetes Association: www.diabetes.org National [place] of Diabetes and Digestive and Kidney [...] provider. Document Revised: 03/17/2021 Document Reviewed: 03/17/2021 [employer] Patient Education 2022 MYFX. 11/09/2023 15:56:06 Prediabetes Prediabetes Prediabetes is when [...] hard liquor (44 mL). General instructions Take fgha-lrq-vmsldgy and prescription medicines only as told by [...] is important. Where to find more information [place] Diabetes Association: www.diabetes.org Academy of Nutrition and Dietetics: www.eatright.org [place] Heart Association: www.heart.org Contact a health care [...] provider. Document Revised: 07/15/2020 Document Reviewed: 07/15/2020 [employer] Patient Education 2022 MYFX. 11/09/2023 15:56:02 Palpitations Palpitations Palpitations are feelings [...] ask your health careprovider. General instructions Take ocwd-kwi-vwuhsuf and prescription medicines only as told by [...] provider. Document Revised: 09/07/2021 Document Reviewed: 09/07/2021 [employer] Patient Education 2022 MYFX. 11/09/2023 15:55:58 Fatigue Fatigue If you have [...] Follow these instructions at home: Medicines Take dfua-rdq-ogffypy and prescription medicines only as told by [...] the National Suicide Prevention Lifeline at or 199. This is open 24 hours a day. Text the Crisis Text Line at 298677. Summary If you have fatigue, you feel [...] Document Reviewed: 02/06/2022 Elsevier Patient Education 2022 [employer] Follow Up Care 11/08/2023 11:31:43 With:PRAVEEN RESENDEZ FAAFP, Penelope Tony, CHRIS, PED Address: [address], [facility] [place] [address]- When: Unknown [facility] 07-12-2024 NotePatient Education Emergency [...] health care provider. General instructions ? Take tbay-jfz-qqfjagy and prescription medicines only as told by [...] provider. Document Revised: 09/07/2021 Document Reviewed: 09/07/2021 [employer] Patient Education ? 2022 MYFX. Endocrinology Preventing Hypoglycemia Hypoglycemia occurs when the [...] Mild hypoglycemia may not (more content not included)...[facility]07-12-2024 History of Present illness Narrative* Tamiko Krueger LSW - 11/09/2023 9:27 AM EDT Patient appears on the [facility] First Time Treatment List for a non-oncology treatment. No psychosocial assessment is indicated. TIM Huerta-Jaylan documented in this encounterK[facility] Telephone encounter Note * Telephone Encounter - [...] etc. Appointments verified. Rachael Johnson RN [facility]07-09-2024 Miscellaneous Notes* Telephone Encounter - Rachael Johnson [...] MD Sent: 11/05/2023 11:33 AM EDT To: [facility] Triage Pool; [facility] Clerical Pool Perry Isidro - looks like you need Iron again. Dr. Middleton Cancel her virtual set for 11/05 and 11/19 - infuse 3 doses weekly iron and then see her in 8 weeks inperson - labs same day. Thanks! documented in this encounterK[facility] Telephone encounter Note * Telephone Encounter - [...] get you feeling better. Best, Dr. Middleton [facility]07-08-2024 Telephone encounter Note* Telephone Encounter - Roberta [...] on a blood thinner. Roberta Haskins [facility]07-08-2024 Telephone encounter Note* Telephone Encounter - Roberta Haskins - 11/05/2023 12:47 PM EDT Appointment tomorrow cancelled. Andres tried calling her this morning and was unable to get a hold ofher. Will keep trying patient to schedule for Iron. Roberta Haskins [facility]07-08-2024 Telephone encounter Note* Telephone Encounter - Roberta Haskins - 11/05/2023 12:47 PM EDT ----- Message from Rachael Johnson RN sent at 11/05/2023 11:53 AM EDT ----- ----- Message ----- From: Kristofer Calix MD Sent: 11/05/2023 11:33 AM EDT To: [facility] Triage Pool; [facility] Clerical Pool Perry Isidro - looks like you need Iron again. Dr. Middleton Cancel her virtual set for 11/05 and 11/19 - infuse 3 doses weekly iron and then see her in 8 weeks inperson - labs same day. Thanks! [facility]-25[facility]2024 Hospital Discharge instructions Patient Education 10/23/2023 17:12:54 [...] specializes in ear, nose, and throat disorders (eradicator, or ENT) for more tests and treatment. [...] (rhinoplasty). Follow these instructions at home: Take dyrn-axn-wkrmqpm and prescription medicines only as told by [...] specializes in ear, nose, and throat disorders (eradicator, or ENT) for more tests and treatment. This information is not intended to replace advice given to you by your health care provider. Make sure you discuss any questions you have with your health care provider. Document Revised: 12/12/2021 Document Reviewed: 12/12/2021 [employer] Patient Education 2022 MYFX. 10/23/2023 17:12:52 Nasal Polyps Nasal Polyps Nasal [...] instructions at home: Medicines Take or use wems-kdc-gljytvz and prescription medicines only as told by [...] provider. Document Revised: 04/05/2022 Document Reviewed: 04/05/2022 [employer] Patient Education 2022 MYFX. 10/23/2023 17:12:52 Nasal Polypectomy Nasal Polypectomy Nasal [...] including vitamins, herbs, eye drops, creams, and page-nnr-bpzzhtz medicines. Any problems you or family members [...] provider tells you to take them. Taking imkd-ayr-ictrdbd medicines, vitamins, herbs, and supplements. General instructions [...] provider. Document Revised: 04/05/2022 Document Reviewed: 04/05/2022 [employer] Patient Education 2022 MYFX. 10/23/2023 17:12:46 BMI for Adults BMI for [...] numbers. This can be done either in [place] ([place].S[place] or metric measurements. Note that charts and online BMI calculators are available to help you find your BMI quickly and easily without having to do these calculations yourself. To calculate your BMI in [place] ([place].S[place] measurements: 1.Measure your weight in pounds [...] Centers for Disease Control and Prevention: www.cdc.gov [place] Heart Association: www.heart.org National Heart, Lung, and Blood [place]: www.nhlbi.nih.gov Summary Body mass index (BMI) is a number that is calculated from a person's weight and height. BMI may help estimate how much of a person's weight is composed of fat. BMI can help identify thosewho may be at higher risk for certain medical problems. BMI can be measured using [place] measurements or metric measurements. BMI charts are used to identify whether you are underweight, normal weight, overweight, or obese. This information is not intended to replace advice given to you by your health care provider. Make sure you discuss any questions you have with your health care provider. Document Revised: 01/07/2020 Document Reviewed: 11/14/2019 [employer] Patient Education 2022 MYFX. Follow Up Care 10/23/2023 08:49:41 With:Lourdes Urrutia Address: [address] [place] [address], [facility] [place] [address]- When: only if needed [facility] 05-31-2024 Hospital Discharge instructions [...] Follow these instructions at home: Medicines Take hpnk-zuv-aywuecm and prescription medicines only as told by [...] Watch your condition for any changes. Take xwfu-ndw-xtxvgqy and prescription medicines only as told by [...] provider. Document Revised: 06/04/2020 Document Reviewed: 08/25/2019 [employer] Patient Education 2022 MYFX. Follow Up Care 09/28/2023 18:22:59 With:Penelope CASAS Address: [address], [place] [address]- Business (1) When:Within 3 Day(s) [facility]05-31-2024 Hospital Discharge instructions Patient Education 09/28/2023 [...] numbers. This can be done either in [place] (U.S[place] or metric measurements. Note that charts and online BMI calculators are available to help you find your BMI quickly and easily without having to do these calculations yourself. To calculate your BMI in [place] measurements: 1.Measure your weight in pounds [...] Centers for Disease Control and Prevention: www.cdc.gov [place] Heart Association: www.heart.org National Heart, Lung, and Blood [place]: www.nhlbi.nih.gov Summary Body mass index (BMI) is a number that is calculated from a person's weight and height. BMI may help estimate how much of a person's weight is composed of fat. BMI can help identify thosewho may be at higher risk for certain medical problems. BMI can be measured using [place] measurements or metric measurements. BMI charts are used to identify whether you are underweight, normal weight, overweight, or obese. This information is not intended to replace advice given to you by your health care provider. Make sure you discuss any questions you have with your health care provider. Document Revised: 01/07/2020 Document Reviewed: 11/14/2019 [employer] Patient Education 2022 MYFX. 09/28/2023 18:24:42 Hypertension, Adult, Zsbu-fb-Oblk Hypertension, Adult Hypertension is another name for [...] doctor. Keep all follow-up visits. Medicines Take jsgx-jjl-amdhxea and prescription medicines only as told by [...] provider. Document Revised: 02/02/2022 Document Reviewed: 02/02/2022 [employer] Patient Education 2022 MYFX. 09/28/2023 18:24:32 Abdominal Pain, Adult, Iyfp-ps-Bqyo Abdominal Pain, Adult Many things can cause belly (abdominal) pain. Most times, belly pain is not dangerous. Many cases of belly pain can be watched and treated at home. Sometimes, though, belly pain is serious. Your doctor will try to find the cause of your belly pain. Follow these instructions at home: Medicines Take oasz-egj-mkodlfo and prescription medicines only as told by [...] your belly pain for any changes. Take qale-xbq-afqzorh and prescription medicines only as told by [...] provider. Document Revised: 08/25/2019 Document Reviewed: 08/25/2019 [employer] Patient Education 2022 MYFX. Follow Up Care 09/28/2023 16:11:11 With:Emergency room Address: When: only if needed Comments:Patient was instructed to contact emergency room for any worsening abdominal pain, concerns, or complications. [facility] 05-31-2024 Evaluation + Plan [...] 12:40:00 PM Scheduled Provider:Penelope CASAS DO, FAAFP Location:[facility] Appointment Type:FM Open Future Scheduled Tests Laboratory* HgbA1c 08/03/23 [facility]05-30-2024 Telephone encounter Note* Telephone Encounter - Divine Roberta - 09/27/2023 4:38 PM EDT Attempt has been made x2 to reschedule patient. She did not have labs drawn. Roberta Haskins [facility]05-30-2024 Miscellaneous Notes* Telephone Encounter - JocelynelesterRoberta - 09/27/2023 4:38 PM EDT Attempt has been made x2 to reschedule patient. She did not have labs drawn. Roberta Haskins documented in this encounterK[facility] History of Present illness Narrative* Kristofer Calix MD - 09/26/2023 9:11 AM EDT Did not have labs done to prep for this visit - reschedule. Kristofer Calix MD documented in this encounterK[facility] Hospital Discharge instructions Patient Education 08/03/2023 12:18:51 [...] health care provider or diet and nutritional services host (dietitian). This may include: ?Eating fewer calories. [...] provider. Document Revised: 06/12/2021 Document Reviewed: 06/12/2021 [employer] Patient Education 2022 MYFX. Follow Up Care 02/15/2023 10:07:52 With:PRAVEEN RESENDEZ FAAFP, Penelope Tony, CHRIS, PED Address: [address], [place] [address]- When:Within 4 Month(s) [facility] 04-05-2024 Evaluation + Plan note Future Scheduled Tests Laboratory* HgbA1c 08/03/23 Radiology* CT Soft Tissue Neck w/ Contrast 11/12/23 [facility] 02-22-2024 Hospital Discharge instructions [...] or if there is an kennedy for [employer] [employer]. Most glucose meters store a record of [...] mayhave. Where to find more information The [place] Diabetes Association: www.diabetes.org The Association of Diabetes [...] provider. Document Revised: 01/12/2021 Document Reviewed: 01/12/2021 [employer] Patient Education 2022 MYFX. 06/21/2023 06:07:34 Preventing Iron Deficiency Anemia, Adult [...] iron. Foods high in vitamin C include: ?[place] fruits, such as tai, oranges, and grapefruits. [...] iron supplement is right for you. Take fwct-iaw-sgwtozj and prescription medicines only as told by your health care provider. Keep all follow-up visits. Where to find more information Learn more about preventing iron deficiency from: National Heart, Lung, and Blood [place]: www.nhlbi.nih.gov [place] Society of Hematology: www.hematology.org Contact a health [...] provider. Document Revised: 05/24/2022 Document Reviewed: 05/24/2022 [employer] Patient Education 2022 MYFX. 06/21/2023 06:07:28 BMI for Adults BMI for [...] numbers. This can be done either in [place] ([place].S[place] or metric measurements. Note that charts and online BMI calculators are available to help you find your BMI quickly and easily without having to do these calculations yourself. To calculate your BMI in [place] ([place].S[place] measurements: 1.Measure your weight in pounds [...] Centers for Disease Control and Prevention: www.cdc.gov [place] Heart Association: www.heart.org National Heart, Lung, and Blood [place]: www.nhlbi.nih.gov Summary Body mass index (BMI) is a number that is calculated from a person's weight and height. BMI may help estimate how much of a person's weight is composed of fat. BMI can help identify thosewho may be at higher risk for certain medical problems. BMI can be measured using [place] measurements or metric measurements. BMI charts are used to identify whether you are underweight, normal weight, overweight, or obese. This information is not intended to replace advice given to you by your health care provider. Make sure you discuss any questions you have with your health care provider. Document Revised: 01/07/2020 Document Reviewed: 11/14/2019 [employer] Patient Education 2022 MYFX. Follow Up Care 06/19/2023 13:39:56 With:PRAVEEN RESENDEZ FAAFP, Penelope Tony, CHRIS, PED Address: [address] [place] [id number]- When: Unknown [facility] 02-20-2024 Miscellaneous Notes* Telephone Encounter - Rachael Johnson RN - 06/19/2023 1:05 PM EST Pt called back and aware of Fely's message. She is agreeable to POC and denies further needs at thistime. She will call PCP to follow up on TSH Rachael Johnson RN * Telephone Encounter - Rachael Johnson RN - 06/19/2023 12:26 PM EST [employer] message sent Rachael Johnson RN * Telephone [...] results Roberta Haskins documented in this encounterK[facility] Instructions* Patient Instructions* Nathaly Carney - 06/15/2023 [...] Calcium with CMP documented in this encounterKettering [facility]02-16-2024 Nurse Note* Serina Horton MA - 06/15/2023 [...] Serina Dawson MA documented in this encounterKettering [facility]02-16-2024 History of Present illness Narrative* Kristofer Calix MD - 06/15/2023 2:00 PM EST Images from the original note were not included. NAME: Sanna Rendon CLINIC NO.: [id number] DATE OF SERVICE: June 15, 2023 (Levon) [...] later in 2018. These were found in [place], [place]. I don't have access to these [...] a target-like rash shortly before presenting to [facility] in 2016 with headaches and was [...] Monge soon. When she hada stoke in [place], she had symptoms up to a month [...] and stayed on Lovenox Hgb 13.1 @ [facility] Recommended ER if persisting bleeding but she [...] 69. Both lived in [facility] but she was adopted. She was not able to see ID in October and will be seeing Dr. Baugh next week. Also will have her see Dr. Hamlin for her clotting disorder and make any other recommendations to optimize her treatment. Updated Visit, October 08, 2020: Telephone only Received call from pt stating she was seen in [facility] ER for numbness in her chest, throat, and extremities, and sob which has been worsening over the last week. We arranged a telephone visit for her franci questions with me. Sanna Rendon is a 34 year old female seen for Hypercoagulable state and recent concerns and symptoms that required her to be seen at [facility] ER. She went to the ER with Gradual worsening of breathing after progressive tingling of fingers and legs. She currently remains very fatigued even though she is sleeping well. Now recalls that before her stroke she remembers having a bull's eye rash and was seen with severe headaches in [facility] was found to have a stroke [...] a root canal and was sent to [facility] for MRI which was negative but non-contrasted. [...] history goes back to January 2016 in [facility] where she had persisting headaches and slurred speech followed by lower extremity weakness. This took a few months to resolve and she is back to her normal state of being but some point in time during her her next she was seen by Dr. Humera Hyde in [place] as well and was found to have [...] which included preparing to see the patient, fssl-jw-yvtk patient care, completing clinical documentation, performing a medically appropriate examination, counseling and educating the patient/family/caregiver, ordering medications, tests, or p rocedures, independently interpreting results (not separately reported), communicating results to the patient/family/caregiver, and care coordination (not separately reported). Kristofer Calix MD, CPE Hematology and Oncology Services Provided at: [place], [place] Scribe Attestation: This note was scribed [...] under my direction. CC: MD Wilton Day, [address] [place] [address] Humaira Gaviria MD [address] [place] [id number] MD Cosmo Kingston MD Michael Blank, MD documented in this encounterKet[facility]02-12-2024 Miscellaneous Notes* Telephone Encounter - Ebony Redding Ma - 06/11/2023 10:43 AM EST Labs for appointment on 06/15. Ebony Redding Ma documented in this encounterKet[facility]02-12-2024 Miscellaneous Notes* Telephone Encounter - Nicol Avila [...] Nicol Salgado * [facility] 06/06/2023 8:37 AM EST [...] since she was last seen by him. [facility] [address] [facility], [place], Please fax records Andres, Please follow up on this appt. Thank you documented in this encounterKet[facility]02-[facility]-2024 History of Present illness Narrative* Kristofer Calix MD - 05/31/2023 4:30 PM EST Images from the original note were not included. NAME: Sanna Rendon CLINIC NO.: [id number] DATE OF SERVICE: May 31, 2023 (Levon) Some elements in this clinic note that are critical to medical decision making have been carefully reviewed and included from a prior clinic note dated: March 19, 2023 (Levon) Additional Clinicians involved in Sanna Rendon's care: Drs. Herrmann, Jorge Monge, Humaira Gaviria, VIRTUAL VISIT PROGRESS NOTE This is a virtual visit using [employer] Zoom Video Visit. It required patient- provider interaction for the medical decision making as documented below. I have communicated my name and active licensure. The patient's identity and physical location wereverified at the time of this visit. Either the patient or their legal manufacturing sales representative has been informed of the risks and benefits of -- and alternatives to -- treatment through a remote evaluation andconsents to proceed with the evaluation remotely. CC: hypercoag state. ASSESSMENT: 37 year old woman 25 weeks presents with a prior history of CVA in 2016 and anantiphospholipid antibody that was identified much later in 2018. These were found in [place], [place]. I don't have access to these [...] a target-like rash shortly before presenting to [facility] in 2016 with headaches and was [...] and stayed on Lovenox Hgb 13.1 @ [facility] Recommended ER if persisting bleeding but she [...] 69. Both lived in [facility] but she was adopted. She was not able to see ID in October and will be seeing Dr. Baugh next week. Also will have her see Dr. Hamlin for her clotting disorder and make any other recommendations to optimize her treatment. Updated Visit, October 08, 2020: Telephone only Received call from pt stating she was seen in [facility] ER for numbness in her chest, throat, and extremities, and sob which has been worsening over the last week. We arranged a telephone visit for her franci questions with me. Sanna Rendon is a 34 year old female seen for Hypercoagulable state and recent concerns and symptoms that required her to be seen at [facility] ER. She went to the ER with Gradual worsening of breathing after progressive tingling of fingers and legs. She currently remains very fatigued even though she is sleeping well. Now recalls that before her stroke she remembers having a bull's eye rash and was seen with severe headaches in [facility] was found to have a stroke [...] a root canal and was sent to [facility] for MRI which was negative but non-contrasted. [...] history goes back to January 2016 in [facility] where she had persisting headaches and slurred speech followed by lower extremity weakness. This took a few months to resolve and she is back to her normal state of being but some point in time during her her next she was seen by Dr. Humera Hyde in [place] as well and was found to have [...] CPE Hematology and Oncology Services Provided at: [place], [place] CC: MD Wilton Day, [address] [place] [address] Humaira Gaviria MD [address] [place] [id number] MD Cosmo Kingston MD Michael Blank, MD documented in this encounterK[facility]02-01-2024 Instructions* Patient Instructions* Kristofer Calix MD - [...] Calcium with CMP documented in this encounterKettering [facility]01-26-2024 Hospital Discharge instructions Patient Education 05/25/2023 12:02:10 [...] your ears completely after. General instructions Take trpw-bwq-ayqiynv and prescription medicines only as told by [...] provider. Document Revised: 06/27/2021 Document Reviewed: 06/27/2021 [employer] Patient Education 2022 MYFX. 05/25/2023 12:02:06 Dyshidrotic Eczema Dyshidrotic Eczema Dyshidrotic [...] care provider who specializes in skin conditions (position clerk) tohelp diagnose and treat this condition. How [...] locks in moisture. Medicines Take and apply bhwz-hco-ojepupk and prescription medicines only as told by [...] provider. Document Revised: 01/24/2021 Document Reviewed: 01/24/2021 [employer] Patient Education 2022 MYFX. 05/25/2023 12:02:02 Allergies, Adult, Jgoa-zh-Hyqc Allergies, Adult An allergy means that your [...] instructions at home: Medicines Take or apply qpaj-toc-alyfzxv and prescription medicines only as told by [...] to the hospital. Summary Take or apply ebdg-pmn-wrkxbww and prescription medicines only as told by [...] provider. Document Revised: 02/25/2020 Document Reviewed: 02/25/2020 [employer] Patient Education 2022 MYFX. Follow Up Care 05/21/2023 12:21:27 With:PRAVEEN RESENDEZ FAAFP, Penelope Tony, CHRIS, PED Address: [facility] [address], [place] [address]- When:Within 2 Month(s) [facility] 11-20-2023 History of Present illness Narrative* Kristofer Calix MD - 03/19/2023 4:45 PM EST Images from the original note were not included. NAME: Sanna Rendon CLINIC NO.: [id number] DATE OF SERVICE: March 19, 2023 (Levon) [...] visit. Either the patient or their legal manufacturing sales representative has been informed of the risks and benefits of -- and alternatives to -- treatment through a remote evaluation andconsents to proceed with the evaluation remotely. CC: hypercoag state. ASSESSMENT: 37 year old woman 25 weeks presents with a prior history of CVA in 2016 and anantiphospholipid antibody that was identified much later in 2018. These were found in [place], [place]. I don't have access to these [...] a target-like rash shortly before presenting to [facility] in 2016 with headaches and was [...] and stayed on Lovenox Hgb 13.1 @ [facility] Recommended ER if persisting bleeding but she [...] 69. Both lived in [facility] but she was adopted. She was not able to see ID in October and will be seeing Dr. Baugh next week. Also will have her see Dr. Hamlin for her clotting disorder and make any other recommendations to optimize her treatment. Updated Visit, October 08, 2020: Telephone only Received call from pt stating she was seen in [facility] for numbness in her chest, throat, and extremities, and sob which has been worsening over the last week. We arranged a telephone visit for her chanw questions with me. Sanna Rendon is a 34 year old female seen for Hypercoagulable state and recent concerns and symptoms that required her to be seen at [facility]. She went to the ER with Gradual worsening of breathing after progressive tingling of fingers and legs. She currently remains very fatigued even though she is sleeping well. Now recalls that before her stroke she remembers having a bull's eye rash and was seen with severe headaches in [facility] was found to have a stroke [...] a root canal and was sent to [facility] for MRI which was negative but non-contrasted. [...] history goes back to January 2016 in [facility] where she had persisting headaches and slurred speech followed by lower extremity weakness. This took a few months to resolve and she is back to her normal state of being but some point in time during her her next she was seen by Dr. Humera Hyde in [place] as well and was found to have [...] CPE Hematology and Oncology Services Provided at: [place], [place] CC: MD Wilton Day, [address] [place] [address] Humaira Gaviria MD [address] [place] [id number] MD Cosmo Kingston MD Michael Blank, MD documented in this encounterKet[facility]11-20-2023 Instructions* Patient Instructions* Kristofer Calix MD - 03/19/2023 4:44 PM EST Continue Lovenox - patient prefers 40 mg (rather than rec 80mg) Take B12 supplement in the form of a sublingual tablet. Take Vitamin D3 5000 international unit(s) daily Check labs in 8 weeks Phone / Virtual call after documented in this encounterKettering Health Dayton10-19-2023 Hospital Discharge instructions Patient Education 02/15/2023 10:13:08 Ear Drops, Adult, Qehp-gz-Pvlk Ear Drops, Adult Your doctor has found [...] cannot use soap and water, use hand instructional writer. 2.Make sure your ears are clean and [...] you cannot use soapand water, use hand instructional writer. Follow these instructions at home: Use the [...] provider. Document Revised: 02/11/2020 Document Reviewed: 02/11/2020 [employer] Patient Education 2022 [employer] 02/15/2023 10:13:05 Otitis Externa, Qnwb-sd-Uyfb Otitis Externa Otitis externa is an infection [...] if you start to feel better. Take bizp-trh-rznzfkh and prescription medicines only as told by [...] provider. Document Revised: 06/29/2021 Document Reviewed: 06/29/2021 [employer] Patient Education 2022 MYFX. Follow Up Care 02/14/2023 12:28:12 With:PRAVEEN RESENDEZ FAAFP, Penelope Tony, CHRIS, PED [facility] [address] [facility] [place] [address]- When:Within 2 Month(s) [facility] 08-25-2023 Hospital Discharge instructions [...] including vitamins, herbs, eye drops, creams, and meqn-mnq-doioewt medicines. ?Whether you are or may be [...] provider. Document Revised: 12/28/2021 Document Reviewed: 11/19/2020 [employer] Patient Education 2022 MYFX. 12/22/2022 15:19:23 Fatigue Fatigue If you have [...] Follow these instructions at home: Medicines Take rsuf-fon-bmujokh and prescription medicines only as told by [...] the National Suicide Prevention Lifeline at or 150. This is open 24 hours a day. Text the Crisis Text Line at 038134. Summary If you have fatigue, you feel [...] provider. Document Revised: 02/06/2022 Document Reviewed: 02/06/2022 [employer] Patient Education 2022 MYFX. Follow Up Care 12/22/2022 10:22:02 With:Lourdes Urrutia Address: [facility] [address], [facility] [place] [address]- When: only if needed [facility] 08-25-2023 Instructions* Patient Instructions* Kristofer Calix MD - 12/22/2022 10:13 AM EDT Continue Lovenox - patient prefers 40 mg (rather than rec 80mg) Take B12 supplement in the form of a sublingual tablet. Take Vitamin D3 5000 international unit(s) daily Check labs in 8 weeks Phone / Virtual call after documented in this encounterKettering Health [facility]08-25-2023 History of Present illness Narrative* Kristofer Calix MD - 12/22/2022 9:55 AM EDT Images from the original note were not included. Kristofer Calix MD NAME: Sanna Rendon CLINIC NO.: [id number] DATE OF SERVICE: December 22, 2022 (Levon) [...] visit. Either the patient or their legal manufacturing sales representative has been informed of the risks and benefits of -- and alternatives to -- treatment through a remote evaluation andconsents to proceed with the evaluation remotely. CC: hypercoag state. ASSESSMENT: 37 year old woman with a prior history of CVA in 2016 and an antiphospholipid antibody that was identified much later in 2018. These were found in [place], [place]. I don't have access to these [...] a target-like rash shortly before presenting to [facility] in 2016 with headaches and was [...] and stayed on Lovenox Hgb 13.1 @ [facility] Recommended ER if persisting bleeding but she [...] 69. Both lived in [facility] but she was adopted. She was not able to see ID in October and will be seeing Dr. Baugh next week. Also will have her see Dr. Hamlin for her clotting disorder and make any other recommendations to optimize her treatment. Updated Visit, October 08, 2020: Telephone only Received call from pt stating she was seen in [facility] for numbness in her chest, throat, and extremities, and sob which has been worsening over the last week. We arranged a telephone visit for her franci questions with me. Sanna Rendon is a 34 year old female seen for Hypercoagulable state and recent concerns and symptoms that required her to be seen at [facility]. She went to the ER with Gradual worsening of breathing after progressive tingling of fingers and legs. She currently remains very fatigued even though she is sleeping well. Now recalls that before her stroke she remembers having a bull's eye rash and was seen with severe headaches in [place], [place] - was found to have a [...] a root canal and was sent to [facility] for MRI which was negative but non-contrasted. [...] history goes back to January 2016 in [facility] where she had persisting headaches and slurred speech followed by lower extremity weakness. This took a few months to resolve and she is back to her normal state of being but some point in time during her her next she was seen by Dr. Humera Hyde in [place] as well and was found to have [...] CPE Hematology and Oncology Services Provided at: [place], [place] CC: MD Wilton Day, [address] [place] [address] Humaira Gaviria MD [address] [facility] [id number] MD Cosmo Kingston MD Michael Blank, MD documented in this encounterKettering Health [facility]08-16-2023 Miscellaneous Notes* Telephone Encounter - Roberta Haskins [...] time. Roberta Haskins documented in this encounterKettering Health Dayton06-23-2023 Hospital Discharge instructions Patient Education 10/20/2022 10:37:38 [...] health care provider or diet and nutritional services host (dietitian). This may include: ?Eating fewer calories. [...] provider. Document Revised: 06/12/2021 Document Reviewed: 06/12/2021 [employer] Patient Education 2022 MYFX. 10/20/2022 10:37:18 Preventing Type 2 Diabetes Mellitus [...] a registered dietitian. This diet and nutritional services host can help you make a healthy eating plan and help you understand portion sizes and food labels. Where to find support Ask your health care provider to recommend a registered dietitian, a certified diabetes care and music education director, or a weight loss program. Look for local or online weight loss groups. Join a gym, fitness club, or outdoor activity group, such as a walking club. Where to find more information For help and guidance and to learn more about diabetes and diabetes prevention, visit: [place] Diabetes Association (ADA): www.diabetes.org National [place] of Diabetes and Digestive and Kidney [...] provider. Document Revised: 07/11/2021 Document Reviewed: 07/11/2021 [employer] Patient Education 2022 MYFX. 10/20/2022 10:37:17 Preventing Hypoglycemia Preventing Hypoglycemia Hypoglycemia [...] your hypoglycemia. Where to find more information [place] Diabetes Association: www.diabetes.org National [place] of Diabetes and Digestive and Kidney [...] provider. Document Revised: 03/17/2021 Document Reviewed: 03/17/2021 [employer] Patient Education 2022 MYFX. 10/20/2022 10:37:16 Gestational Diabetes Mellitus, Diagnosis, Negt-gh-Hayw Gestational Diabetes Mellitus, Diagnosis Gestational diabetes mellitus [...] follow-up visits. Where to find more information [place] Diabetes Association (ADA): diabetes.org Association of Diabetes Care & Education Specialists (ADCES): diabeteseducator.org Centers for Disease Control and Prevention (CDC): cdc.gov [place] Association: americanpregnancy.org U.S. Department of Agriculture MyPlate: [...] provider. Document Revised: 09/20/2020 Document Reviewed: 09/20/2020 [employer] Patient Education 2022 MYFX. Follow Up Care 09/19/2022 14:47:09 With:PRAVEEN RESENDEZ FAAFP, CHRIS Perez, PED Address: [place] [address]- When:Within 3 Month(s) [facility] 06-01-2023 History of Present illness Narrative* Kristofer Calix MD - 09/28/2022 5:00 PM EDT Images from the original note were not included. Kristofer Calix MD NAME: Sanna Rendon CLINIC NO.: [id number] DATE OF SERVICE: September 28, 2022 (Levon) [...] visit. Either the patient or their legal manufacturing sales representative has been informed of the risks and benefits of -- and alternatives to -- treatment through a remote evaluation andconsents to proceed with the evaluation remotely. CC: hypercoag state. ASSESSMENT: 36 year old woman 25 weeks presents with a prior history of CVA in 2016 and anantiphospholipid antibody that was identified much later in 2018. These were found in [place], [place]. I don't have access to these [...] a target-like rash shortly before presenting to [facility] in 2016 with headaches and was [...] and stayed on Lovenox Hgb 13.1 @ [facility] Recommended ER if persisting bleeding but she [...] 69. Both lived in [facility] but she was adopted. She was not able to see ID in October and will be seeing Dr. Baugh next week. Also will have her see Dr. Hamlin for her clotting disorder and make any other recommendations to optimize her treatment. Updated Visit, October 08, 2020: Telephone only Received call from pt stating she was seen in [facility] for numbness in her chest, throat, and extremities, and sob which has been worsening over the last week. We arranged a telephone visit for her toreview questions with me. Sanna Rendon is a 34 year old female seen for Hypercoagulable state and recent concerns and symptoms that required her to be seen at [facility]. She went to the ER with Gradual worsening of breathing after progressive tingling of fingers and legs. She currently remains very fatigued even though she is sleeping well. Now recalls that before her stroke she remembers having a bull's eye rash and was seen with severe headaches in [place], [place] - was found to have a [...] a root canal and was sent to [facility] for MRI which was negative but non-contrasted. [...] history goes back to January 2016 in [facility] where she had persisting headaches and slurred speech followed by lower extremity weakness. This took a few months to resolve and she is back to her normal state of being but some point in time during her her next she was seen by Dr. Humera Hyde in [place] as well and was found to have [...] CPE Hematology and Oncology Services Provided at: [place], [place] CC: MD Wilton Day, [address] [place] [address] Humaira Gaviria MD [address] [place] [address] [place] [address] MD Cosmo Kingston MD Michael Blank, MD documented in this encounterKettering Health Dayton05-24-2023 Miscellaneous Notes* Telephone Encounter - Cheri Acharya Sec - 09/20/2022 7:06 AM EDT Cxed appt * Telephone Encounter - Valeri Yeung RN - 09/19/2022 3:29 PM EDT Patient would like to have labs drawn at [facility]. Called [facility] lab to get fax number. Lab orders faxed to [phone] Valeri Yeung RN PSS: Can you cancel lab appointment for 09/21/22 here. Thanks. Valeri Yeung RN documented in this encounterKettering Health Dayton04-04-2023 Instructions* Patient Instructions* Kristofer Calix MD - 08/01/2022 10:56 AM EDT Continue Lovenox - patient prefers 40 mg (rather than rec 80mg) 8 weeks - labs Phone / Virtual call after documented in this encounterKettering Health Dayton03-30-2023 History of Present illness Narrative* Kristofer Calix MD - 07/27/2022 1:18 PM EDT NAME: Sanna Rendon CLINIC NO.: [id number] DATE OF SERVICE: July 27, 2022 (Levon) [...] later in 2018. These were found in [place], [place]. I don't have access to these [...] a target-like rash shortly before presenting to [facility] in 2016 with headaches and was [...] 69. Both lived in [facility] but she was adopted. She was not able to see ID in October and will be seeing Dr. Baugh next week. Also will have her see Dr. Hamlin for her clotting disorder and make any other recommendations to optimize her treatment. Updated Visit, October 08, 2020: Telephone only Received call from pt stating she was seen in [facility] for numbness in her chest, throat, and extremities, and sob which has been worsening over the last week. We arranged a telephone visit for her domingoeview questions with me. Sanna Rendon is a 34 year old female seen for Hypercoagulable state and recent concerns and symptoms that required her to be seen at [facility]. She went to the ER with Gradual worsening of breathing after progressive tingling of fingers and legs. She currently remains very fatigued even though she is sleeping well. Now recalls that before her stroke she remembers having a bull's eye rash and was seen with severe headaches in [place], [place] - was found to have a [...] a root canal and was sent to [facility] for MRI which was negative but non-contrasted. [...] history goes back to January 2016 in [facility] where she had persisting headaches and slurred speech followed by lower extremity weakness. This took a few months to resolve and she is back to her normal state of being but some point in time during her her next she was seen by Dr. Humera Hyde in [place] as well and was found to have [...] which included preparing to see the patient, zysm-jl-exvo patient care, completing clinical documentation, obtaining and/or reviewing separately obtained history, performing a medically appropriate examination, counseling and educating the pat ient/family/caregiver, ordering medications, tests, or procedures, independently interpreting results (not separately reported), and care coordination (not separately reported). Kristofer Calix MD, CPE Hematology and Oncology Services Provided at: [place], [place] CC: MD Wilton Day, [address] [place] [address] Humaira Gaviria MD [address] [facility] [address] MD Cosmo Kingston MD Michael Blank, MD documented in this encounterKettering Health Dayton12-07-2022 History of Present illness Narrative* Alison Linares [...] standard infusion rate. documented in this encounterKettering Health Dayton12-06-2022 Miscellaneous Notes* Telephone Encounter - Marleen Ramirez [...] Meme Gonzalez RN documented in this encounterKettering Health Dayton12-01-2022 Miscellaneous Notes* Telephone Encounter - Roberta Haskins [...] were not included. Kristofer Calix MD [facility] Triage Pool; P [facility] Clerical Pool She needs iron MUNIRA - if monoferric isn't approved, lets get her in weekly for Venna for. * Telephone Encounter - Roberta Haskins - 03/27/2022 2:57 PM EST 2. Consider IV iron a. Triage nurse to please call iron results when available this week documented in this encounterKettering Health Dayton11-28-2022 Instructions* Patient Instructions* Kristofer Calix MD - 03/27/2022 2:51 PM EST Continue Lovenox - patient prefers 40 mg (rather than rec 80mg) Consider IV iron Triage nurse to please call iron results when available this week Will recheck antiphospholipid antibodies as ordered and every 6 months. RTC in 8 weeks - labs same day. documented in this encounterKettering Health Dayton11-28-2022 History of Present illness Narrative* Kristofer Calix MD - 03/27/2022 2:15 PM EST Images from the original note were not included. NAME: Sanna Rendon CLINIC NO.: [id number] DATE OF SERVICE: March 27, 2022 (radhaelaina) [...] later in 2018. These were found in [place], [place]. I don't have access to these [...] a target-like rash shortly before presenting to [facility] in 2016 with headaches and was [...] 69. Both lived in [facility] but she was adopted. She was not able to see ID in October and will be seeing Dr. Baugh next week. Also will have her see Dr. Hamlin for her clotting disorder and make any other recommendations to optimize her treatment. Updated Visit, October 08, 2020: Telephone only Received call from pt stating she was seen in [facility] for numbness in her chest, throat, and extremities, and sob which has been worsening over the last week. We arranged a telephone visit for her chanw questions with me. Sanna Rendon is a 34 year old female seen for Hypercoagulable state and recent concerns and symptoms that required her to be seen at [facility]. She went to the ER with Gradual worsening of breathing after progressive tingling of fingers and legs. She currently remains very fatigued even though she is sleeping well. Now recalls that before her stroke she remembers having a bull's eye rash and was seen with severe headaches in [place], [place] - was found to have a [...] a root canal and was sent to [facility] for MRI which was negative but non-contrasted. [...] history goes back to January 2016 in [facility] where she had persisting headaches and slurred speech followed by lower extremity weakness. This took a few months to resolve and she is back to her normal state of being but some point in time during her her next she was seen by Dr. Humera Hyde in [place] as well and was found to have [...] which included preparing to see the patient, oyxw-wq-wcsa patient care, completing clinical documentation, obtaining and/or reviewing separately obtained history, performing a medically appropriate examination, counseling and educating the pat ient/family/caregiver, ordering medications, tests, or procedures, independently interpreting results (not separately reported), and care coordination (not separately reported). Kristofer Calix MD, CPE Hematology and Oncology Services Provided at: [place], [place] CC: MD Wilton Day, [address] [place] [address] Humaira Gaviria MD [address] [place] [id number] MD Cosmo Kingston MD Michael Blank, MD documented in this encounterKettering Health Dayton10-03-2022 Instructions* Patient Instructions* Kristofer Calix MD - 01/30/2022 12:[address] Hamlin's expertise and will prescribe Lovenox - patient prefers 40 mg (rather than rec 80mg) Will recheck antiphospholipid antibodies as ordered and every 6 months. RTC in 8 weeks - labs same day. documented in this encounterKettering Health Dayton10-03-2022 History of Present illness Narrative* Kristofer Calix MD - 01/30/2022 11:59 AM EDT Images from the original note were not included. NAME: Sanna Rendon CLINIC NO.: [id number] DATE OF SERVICE: January 30, 2022 Some [...] later in 2018. These were found in [place], [place]. I don't have access to these [...] a target-like rash shortly before presenting to [facility] in 2016 with headaches and was [...] 69. Both lived in [facility] but she was adopted. She was not able to see ID in October and will be seeing Dr. Baugh next week. Also will have her see Dr. Hamlin for her clotting disorder and make any other recommendations to optimize her treatment. Updated Visit, October 08, 2020: Telephone only Received call from pt stating she was seen in [facility] ER for numbness in her chest, throat, and extremities, and sob which has been worsening over the last week. We arranged a telephone visit for her chanw questions with me. Sanna Rendon is a 34 year old female seen for Hypercoagulable state and recent concerns and symptoms that required her to be seen at [facility]. She went to the ER with Gradual worsening of breathing after progressive tingling of fingers and legs. She currently remains very fatigued even though she is sleeping well. Now recalls that before her stroke she remembers having a bull's eye rash and was seen with severe headaches in [facility] was found to have a stroke [...] a root canal and was sent to [facility] for MRI which was negative but non-contrasted. [...] history goes back to January 2016 in [facility] where she had persisting headaches and slurred speech followed by lower extremity weakness. This took a few months to resolve and she is back to her normal state of being but some point in time during her her next she was seen by Dr. Humera Hyde in [place] as well and was found to have [...] which included preparing to see the patient, wvhq-et-vbjv patient care, completing clinical documentation, obtaining and/or reviewing separately obtained history, performing a medically appropriate examination, counseling and educating the pat ient/family/caregiver, and ordering medications, tests, or procedures. Kristofer Calix MD, [place], [place] CC: MD Chalino Dayy Jeanine Herrmann, [address] [place] [address] Humaira Gaviria MD [address] [place] [id number] MD Cosmo Kingston MD Michael Blank, MD documented in [facility] Nurse Note* Serina Dawson MA - 01/30/2022 11:55 AM EDT Patient states she may be diagnosed with gestational diabetes, she was from 215 to 52 a couple hours later after eating wheat cereal. She sees OB tomorrow. Serina Dawson MA documented in this encounterK[facility]09-02-2022 Miscellaneous Notes* Telephone Encounter - Tonja Pope RN - 12/30/2021 10:15 AM EDT Call received from Sanna requesting refill of Lovenox 40 mg to be sent to [facility] in [place]. FELY: Please review and approve if you agree. Tonja Chery RN documented in this encounterK[facility]06-13-2022 Miscellaneous Notes* Telephone Encounter - Meme Easton RN - 10/10/2021 12:15 PM EDT Received call from pt requesting refill of Lovenox 40 mg to be sent to [facility] in [place]. FELY: Pt also states she had one episode of blood in her stool which was dripping blood which concerned her. She is not ready to move to 80 mg of Lovenox at this time. Order pending. Please review and sign if agreeable. Meme Easton RN documented in this encounterK[facility]05-10-2022 Miscellaneous Notes* Telephone Encounter - Kristofer Calix [...] Meme Easton RN documented in this encounterK[facility]05-09-2022 Miscellaneous Notes* Telephone Encounter - Meme Easton [...] Meme Easton RN documented in this encounterK[facility]04-25-2022 Miscellaneous Notes* Telephone Encounter - Meme Easton [...] Meme Easton RN documented in this encounterK[facility]04-22-2022 Hospital Discharge instructions Patient Education 08/19/2021 13:02:22 [...] including vitamins, herbs, eye drops, creams, and hbmx-jal-lctqpdh medicines. ?Whether you are or may be [...] 02/11/2008 Document Revised: 08/05/2019 Document Reviewed: 02/18/2018 [employer] Patient Education 2020 [employer] 08/19/2021 13:02:21 Dysuria Dysuria Dysuria is [...] alcohol may irritate the prostate. Medicines Take qdtc-ukf-vvavrln and prescription medicines only as told by [...] 01/12/2005 Document Revised: 03/29/2018 Document Reviewed: 01/31/2018 [employer] Patient Education 2020 [employer]. 08/19/2021 13:02:17 Budget-Friendly Healthy Eating Budget-Friendly Healthy [...] frozen fruits, and frozen vegetables. Avoid buying yznbp-xc-vut foods, such as pre-cut fruits and vegetables [...] 12/18/2014 Document Revised: 04/17/2018 Document Reviewed: 04/17/2018 [employer] Patient Education 2020 [employer]. 08/19/2021 13:02:15 BMI for Adults BMI for [...] height. This can be done either in [place] ([place] or metric measurements. Note that charts are available to help you find your BMI quickly and easily without having to do these calculations yourself. To calculate your BMI in [place] measurements, your health care provider will: [...] medical problems. BMI can be measured using Kosovan measurements or metric measurements. To interpret your [...] 12/26/2004 Document Revised: 03/29/2018 Document Reviewed: 02/27/2018 [employer] Patient Education 2020 [employer]. 08/19/2021 13:02:11 Paresthesia Paresthesia Paresthesia is an [...] fried or sweet foods. General instructions Take pvnw-zbj-vhufekc and prescription medicines only as told by [...] 04/06/2003 Document Revised: 05/12/2019 Document Reviewed: 04/25/2018 [employer] Patient Education 2020 [employer]. Follow Up Care 08/19/2021 09:17:52 With:PRAVEEN RESENDEZ FAAFP, Penelope Tony, CHRIS, PED Address: [address], [place] [address]- When:1 to 2 weeks [facility] 04-22-2022 Evaluation + Plan note Future Scheduled Tests Radiology* XR Spine Lumbosacral Minimum 4 Views 08/19/21 [facility]04-07-2022 Miscellaneous Notes* Telephone Encounter - Roberta Haskins - 08/04/2021 3:36 PM EDT Patient is scheduled for 09/[address] Elliott. Roberta Haskins * Telephone Encounter - Roberta Divine - 08/01/2021 1:05 PM EDT Sent Email to [facility] to refer patient back to Dr. Cosmo Elliott Dx: Primary hypercoagulable state (HCC) Roberta Divine documented in this encounterK[facility]04-04-2022 Nurse Note* Ebony Redding Ma - 08/01/2021 12:48 PM EDT UA ran as ordered. Ebony Redding Ma documented in this encounterK[facility]03-28-2020 Evaluation + Plan note Future Appointments Appointment Date:07/25/2024 02:30:00 PM Scheduled [facility]: [facility] Type:CV EKG (FT) Appointment Date:07/25/2024 03:00:00 PM Scheduled Provider: [facility] Appointment Type:CV Holter/Event (FT) Appointment Date:09/09/2024 08:20:00 AM Scheduled Provider:Penelope CASAS DO, FAAFP Location:[facility] Appointment Type:FM Open Future Scheduled Tests Laboratory* HgbA1c 08/05/24 * HgbA1c 11/04/24 Radiology* CT Soft Tissue Neck w/ Contrast 11/12/23 [facility] 03-28-2020 Evaluation + Plan note Future Appointments Appointment Date:07/25/2024 02:30:00 PM Scheduled Provider: [facility] Appointment Type:CV EKG (FT) Appointment Date:07/25/2024 03:00:00 PM Scheduled Provider: [facility] Appointment Type:CV Holter/Event (FT) Appointment Date:09/09/2024 08:20:00 AM Scheduled Provider:Penelope CASAS DO, FAAFP Location:[facility] Appointment Type:FM Open Diagnostic Tests Pending * Hepatitis B Surface Antigen 07/09/24 * HCV Antibody RFX to Quant PCR 07/09/24 * Hep Be Ag 07/09/24 * HIV Screen 4th Generation wRfx 07/09/24 Future Scheduled Tests Laboratory* HgbA1c 08/05/24 * HgbA1c 11/04/24 Radiology* CT Soft Tissue Neck w/ Contrast 11/12/23 [facility] Evaluation + Plan note Future Appointments Appointment Date:11/08/2021 12:40:00 PM Scheduled Provider:Penelope CASAS DO, FAAFP Location:[facility] Appointment Type:FM Open Future Scheduled Tests Radiology* XR Spine Lumbosacral Minimum 4 Views 08/19/21 [facility] Evaluation + Plan note Future Appointments Appointment Date:11/08/2021 12:40:00 PM Scheduled Provider:Penelope CASAS DO, FAAFP Location:[facility] Appointment Type:FM Open Diagnostic Tests Pending * Urine Culture 08/19/21 Future Scheduled Tests Radiology* XR Spine Lumbosacral Minimum 4 Views 08/19/21 [facility] App[facility]ments Appointment Date:09/21/2022 10:00:00 AM Scheduled Provider:Penelope CASAS DO, FAAFP Location:[facility]: [facility] Future Appointments Appointment Date:10/20/2022 09:40:00 AM Scheduled Provider:Penelope CASAS DO, FAAFP [facility] Future App[facility]ments Appointment Date:01/26/2023 10:40:00 AM Scheduled Provider:Penelope CASAS DO, FAAFP Location:[facility] Appointment Type: Open [facility] Evaluation + Plan note Future Appointments Appointment Date:04/17/2023 02:20:00 PM Scheduled Provider:Penelope CASAS DO, FAAFP Location:[facility] Appointment Type:FM Open Future Scheduled Tests Laboratory* HgbA1c 02/15/23 * Thyroid Stimulating Hormone 02/15/23 * Thyroid Stimulating Hormone 01/11/23 [facility] Evaluation + Plan note Future Appointments Appointment Date:07/24/2023 01:20:00 PM Scheduled Provider:Penelope CASAS DO, FAAFP Location:[facility] Appointment Type:FM Open Future Scheduled Tests Laboratory* HgbA1c 02/15/23 * Thyroid Stimulating Hormone 02/15/23 [facility] App[facility]ments Appointment Date:07/24/2023 01:20:00 PM Scheduled Provider:Penelope CASAS DO, FAAFP Location:[facility] Appointment Type: Open [facility] Evaluation + Plan note Future Appointments Appointment Date:12/03/2023 12:40:00 PM Scheduled Provider:Penelope CASAS DO, FAAFP Location:[facility] Appointment Type:FM Open Future Scheduled Tests Laboratory* HgbA1c 08/03/23 [facility] evaluation + Plan note Future Appointments Appointment Date:12/03/2023 12:40:00 PM Scheduled Provider:Penelope CASAS DO, FAAFP Location:[facility] Appointment Type:FM Open Future Scheduled Tests Laboratory* Sedimentation Rate Automated 11/09/23 * HgbA1c 08/03/23 * Amylase Level 11/09/23 * Cortisol 11/09/23 * C-Reactive Protein 11/09/23 * T3 Free 11/09/23 * Thyroid Stimulating Hormone 11/09/23 * Free T4 11/09/23 * Vitamin B12 Level 11/09/23 Radiology* MRI Brain w/o Contrast 11/09/23 * MRI Orbit Face Neck w/o contrast 11/09/23 [facility] evaluation + Plan note Future Appointments Appointment Date:01/11/2024 08:15:00 PM Scheduled Provider: [facility] Appointment 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: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 Sleep Study PSG () Appointment Date:01/29/2024 01:20:00 PM Scheduled Provider:Penelope CASAS DO, FAAFP Location:[facility] Appointment Type:FM Open Diagnostic Tests Pending * Cortisol 12/06/23 * T3 Free 12/06/23 Future Scheduled Tests Laboratory* HgbA1c 08/03/23 Radiology* CT Soft Tissue Neck w/ Contrast 11/12/23 [facility] evaluation + Plan note Future Appointments Appointment Date:05/16/2024 11:40:00 AM Scheduled Provider:Penelope CASAS DO, FAAFP Location:[facility] Appointment Type:FM Open Future Scheduled Tests Laboratory* HgbA1c 02/05/24 * HgbA1c 05/07/24 * HgbA1c 08/05/24 * HgbA1c 11/04/24 * HgbA1c 08/03/23 * HIV Screen 4th Generation wRfx 02/05/24 * HIV Screen 4th Generation wRfx 02/05/24 * Lipid Panel 02/05/24 Radiology* CT Soft Tissue Neck w/ Contrast 11/12/23 [facility] evaluation + Plan note Future Appointments Appointment Date:05/16/2024 11:40:00 AM Scheduled Provider:Penelope CASAS DO, FAAFP Location:[facility] Appointment Type:FM Open Future Scheduled Tests Laboratory* HgbA1c 05/07/24 * HgbA1c 08/05/24 * HgbA1c 11/04/24 Radiology* CT Soft Tissue Neck w/ Contrast 11/12/23 [facility] evaluation + Plan note Future Appointments Appointment Date:05/16/2024 11:40:00 AM Scheduled Provider:Penelope CASAS DO, FAAFP Location:[facility] Appointment Type:FM Open Diagnostic Tests Pending * HIV Screen 4th Generation wRfx 02/23/24 Future Scheduled Tests Laboratory* HgbA1c 05/07/24 * HgbA1c 08/05/24 * HgbA1c 11/04/24 Radiology* CT Soft Tissue Neck w/ Contrast 11/12/23 [facility] evaluation + Plan note Future Appointments Appointment Date:05/16/2024 11:40:00 AM Scheduled Provider:Penelope CASAS DO, FAAFP Location:[facility] Appointment Type:FM Open Future Scheduled Tests Laboratory* HgbA1c 08/05/24 * HgbA1c 11/04/24 Radiology* CT Soft Tissue Neck w/ Contrast 11/12/23 [facility] evaluation + Plan note Future Appointments Appointment Date:05/16/2024 11:40:00 AM Scheduled Provider:Penelope CASAS DO, FAAFP Location:[facility] Appointment Type:FM Open Diagnostic Tests Pending * Urine Culture 03/01/24 Future Scheduled Tests Laboratory* HgbA1c 08/05/24 * HgbA1c 11/04/24 Radiology* CT Soft Tissue Neck w/ Contrast 11/12/23 [facility] evaluation + Plan note Future Appointments Appointment Date:07/07/2024 02:20:00 PM Scheduled Provider:Penelope CASAS DO, FAAFP Location:[facility] Appointment Type:FM Open Future Scheduled Tests Laboratory* HgbA1c 08/05/24 * HgbA1c 11/04/24 Radiology* CT Soft Tissue Neck w/ Contrast 11/12/23 [facility] evaluation + Plan note Future Appointments Appointment Date:09/09/2024 08:20:00 AM Scheduled Provider:Penelope CASAS DO, FAAFP Location:[facility] Appointment Type:FM Open Future Scheduled Tests Laboratory* HgbA1c 08/05/24 * HgbA1c 11/04/24 Radiology* CT Soft Tissue Neck w/ Contrast 11/12/23 [facility] evaluation note* Diagnosis Infective urethritis- Primary Urethritis, unspecified [facility] Diagnosis Primary hypercoagulable state (HCC) Primary hypercoagulable state CVA, old, speech/language deficit Speech and language deficit, unspecified, 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 Hyposmolality and/or hyponatremia documented in this encounter [facility] note* Diagnosis Primary hypercoagulable state (HCC) Primary hypercoagulable state CVA, old, speech/language deficit Speech and language deficit, unspecified, 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 Hyposmolality and/or hyponatremia documented in this encounter [facility] note* Diagnosis Primary hypercoagulable state (HCC)- Primary Primary hypercoagulable state CVA, old, speech/language deficit Speech and language deficit, unspecified, late effect of cerebrovascular disease Antiphospholipid antibody syndrome (HCC) Primary hypercoagulable state Anemia, unspecified type documented in this encounter [facility] note* Diagnosis Iron deficiency anemia secondary to blood loss (chronic) Iron deficiency anemia of Anemia of mother, complicating , childbirth, or the puerperium, unspecified as to episode of care documented in this encounter [facility] note* 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 Iron deficiency anemia of Anemia of mother, complicating , childbirth, or the puerperium, unspecified as to episode of care documented in this encounter [facility] note* Diagnosis Primary hypercoagulable state (HCC) Primary hypercoagulable state CVA, old, speech/language deficit Speech and language deficit, unspecified, 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 Hyposmolality and/or hyponatremia documented in this encounter [facility] note* 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 Iron deficiency anemia of Anemia of mother, complicating , childbirth, or the puerperium, unspecified as to episode of care documented in this encounter [facility] note* Diagnosis Primary hypercoagulable state (HCC) Primary hypercoagulable state CVA, old, speech/language deficit Speech and language deficit, unspecified, 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 Hyposmolality and/or hyponatremia documented in this encounter [facility] note* Diagnosis Primary hypercoagulable state (HCC)- Primary Primary hypercoagulable state 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, old, speech/language deficit Speech and language deficit, unspecified, late effect of cerebrovascular disease [facility] Primary hypercoagulable state (HCC) Primary hypercoagulable state CVA, old, speech/language deficit Speech and language deficit, unspecified, 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 Hyposmolality and/or hyponatremia [facility] Diagnosis Primary hypercoagulable state (HCC)- Primary Primary hypercoagulable state Iron deficiency anemia of Anemia of mother, complicating , childbirth, or the puerperium, unspecified as to episode of care Iron deficiency anemia secondary to blood loss (chronic) Vitamin D deficiency Unspecified vitamin D deficiency [facility] Diagnosis Primary hypercoagulable state (HCC)- Primary Primary hypercoagulable state Iron deficiency anemia secondary to blood loss (chronic) Vitamin D deficiency Unspecified vitamin D deficiency CVA, old, speech/language deficit Speech and language deficit, unspecified, late effect of cerebrovascular disease Antiphospholipid antibody syndrome (HCC) Primary hypercoagulable state [facility]* Diagnosis Primary hypercoagulable state (HCC)- Primary Primary hypercoagulable state CVA, old, speech/language deficit Speech and language deficit, unspecified, late effect of cerebrovascular disease Hypercalcemia Vitamin D deficiency Unspecified vitamin D deficiency Iron deficiency anemia secondary to blood loss (chronic) Malaise and fatigue Other malaise and fatigue [facility]* Diagnosis Vitamin D deficiency- Primary Unspecified vitamin D deficiency 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) Antiphospholipid antibody syndrome (HCC) Primary hypercoagulable state Malaise and fatigue Other malaise and fatigue [facility] Diagnosis Vitamin D deficiency- Primary Unspecified vitamin D deficiency 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) [facility] 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 [facility]* Diagnosis Iron deficiency anemia of - Primary Anemia of mother, complicating , childbirth, or the puerperium, unspecified as to episode of care Iron deficiency anemia secondary to blood loss (chronic) [facility]* Diagnosis Iron deficiency anemia of - Primary Anemia of mother, complicating , childbirth, or the puerperium, unspecified as to episode of care Iron deficiency anemia secondary to blood loss (chronic) [facility] 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 Vitamin D deficiency Unspecified vitamin D deficiency Malaise and fatigue Other malaise and fatigue [facility]* Diagnosis Primary hypercoagulable state (HCC) Primary hypercoagulable state CVA, old, speech/language deficit Speech and language deficit, unspecified, 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 Hyposmolality and/or hyponatremia [facility]* Diagnosis Missed menses , unspecified gestational age Encounter for supervision of normal first in first trimester Hypothyroidism (acquired) ([facility]/HCC) Unspecified hypothyroidism Low vitamin D level documented in this encounter [facility]* Diagnosis 14 weeks gestation of Second trimester state, incidental Confirm viability with history of miscarriage, ultrasound Encounter for routine screening for malformation using ultrasonics documented in this encounter [facility] HealthcareEvaluation noteNo assessment information availableKing[facility] [place] [facility] Work Phone: Evaluation note* Diagnosis Primary hypercoagulable state (HCC)- Primary Primary hypercoagulable state CVA, old, speech/language deficit Speech and language deficit, unspecified, 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) Vitamin D deficiency Unspecified vitamin D deficiency Antiphospholipid antibody syndrome (HCC) Primary hypercoagulable state [facility]* Diagnosis Follow-up visit after miscarriage Abnormal TSH History of thyroid disease documented in this encounter [facility] HealthcareEvaluation note* Diagnosis Vaginal bleeding Other specified noninflammatory disorder of vagina Dizziness Dizziness and giddiness Abnormal TSH Vaginal discharge Leukorrhea, not specified as infective Pelvic pain in female Unspecified symptom associated with female genital organs documented in this encounter [facility] HealthcareEvaluation note* Diagnosis Irregular menstrual cycle documented in this encounter [facility] HealthcareEvaluation note* Diagnosis Primary hypercoagulable state (HCC) Primary hypercoagulable state CVA, old, speech/language deficit Speech and language deficit, unspecified, 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 Hyposmolality and/or hyponatremia [facility]* Diagnosis Antiphospholipid antibody positive- Primary Other and unspecified nonspecific immunological findings Iron deficiency anemia secondary to blood loss (chronic) Malaise and fatigue Other malaise and fatigue Vitamin D deficiency Unspecified vitamin D deficiency [facility]* Diagnosis Amenorrhea Absence of menstruation Missed menses , unspecified gestational age Encounter for supervision of normal first in first trimester Thyroid disease ([facility]/HCC) Unspecified disorder of thyroid documented in this encounter [facility] Healthcare[facility] note* Diagnosis Gestational diabetes mellitus (GDM), antepartum, gestational diabetes method of control unspecified- Primary [facility] Diagnosis Primary hypercoagulable state (HCC) Primary hypercoagulable state CVA, old, speech/language deficit Speech and language deficit, unspecified, 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 Hyposmolality and/or hyponatremia documented in this [facility]* Diagnosis Primary hypercoagulable state (HCC)- Primary Primary hypercoagulable state CVA, old, speech/language deficit Speech and language deficit, unspecified, 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 Hyposmolality and/or hyponatremia Personal history of TIA (transient ischemic attack) Transient ischemic attack (TIA), and cerebral infarction without residual deficits [facility]* Diagnosis Second trimester (HHS-HCC) state, incidental 13 weeks gestation of ([facility]) Thyroid disease Unspecified disorder of thyroid Multigravida of advanced maternal age in second trimester ([facility]) Gestational diabetes mellitus (GDM), antepartum, gestational diabetes method of control unspecified([facility]) Elevated glucose tolerance test Impaired glucose tolerance test documented in this encounter [facility] HealthcareEvaluation note* Diagnosis Gestational diabetes mellitus (GDM), antepartum, gestational diabetes method of control unspecified- Primary [facility] Diagnosis Second trimester (HHS-HCC) state, incidental 16 weeks gestation of ([facility]) Screening, , for anatomic survey ([facility]) Encounter for anatomic survey Vaginal discharge Leukorrhea, not specified as infective Sinus headache Headache [facility] Diagnosis Insulin controlled gestational diabetes mellitus (GDM) in second trimester- Primary [facility] Diagnosis 19 weeks gestation of ([facility]-HCC) Second trimester (HHS-HCC) state, incidental Thyroid disease Unspecified disorder of thyroid Multigravida of advanced maternal age in second trimester (HHS-HCC) Gestational diabetes mellitus (GDM), antepartum, gestational diabetes method of control unspecified(HHS-HCC) [facility] Diagnosis Gestational diabetes mellitus (GDM) in second trimester controlled on oral hypoglycemic drug- Primary [facility] Diagnosis Antiphospholipid antibody positive- Primary Other and unspecified nonspecific immunological findings Iron deficiency anemia secondary to blood loss (chronic) Vitamin D deficiency Unspecified vitamin D deficiency Primary hypercoagulable state (HCC) Primary hypercoagulable state [facility] Diagnosis Gestational diabetes mellitus (GDM) in second trimester controlled on oral hypoglycemic drug- Primary [facility] Diagnosis Multigravida of advanced maternal age in second trimester- Primary Antiphospholipid syndrome complicating , antepartum Gestational diabetes mellitus (GDM) in second trimester controlled on oral hypoglycemic drug Insulin controlled gestational diabetes mellitus (GDM) in second trimester AMA (advanced maternal age) multigravida 35+, second trimester Hypothyroidism, unspecified type [facility] Diagnosis 22 weeks gestation of [...] Hyposmolality and/or hyponatremia [facility] Diagnosis Multigravida of advanced [...] (GDM), antepartum, gestational diabetes method of control unspecified([facility]) Multigravida of advanced maternal age in second trimester ([facility]) H/O loss Lightheaded Dizziness and giddiness Dizziness [...] (HHS-HCC) state, incidental 25 weeks gestation of ([facility]) Gestational diabetes mellitus (GDM), antepartum, gestational diabetes method of control unspecified([facility]) Anticoagulant long-term use Encounter for long-term (current) use of anticoagulants Antiphospholipid antibody positive Other and unspecified nonspecific immunological findings Antiphospholipid antibody syndrome ([facility]) Primary hypercoagulable state documented in this encounter [facility]* Diagnosis 27 weeks gestation of - Primary Multigravida of advanced maternal age in third trimester Gestational diabetes mellitus (GDM) in second trimester controlled on oral hypoglycemic drug Antiphospholipid syndrome complicating , antepartum Antiphospholipid syndrome Primary hypercoagulable state [facility] Diagnosis Third trimester ([facility]HS-HCC) state, incidental 28 weeks gestation of ([facility]) Anemia complicating childbirth ([facility]) Anticoagulant long-term use Encounter for long-term (current) use of anticoagulants Antiphospholipid antibody positive Other and unspecified nonspecific immunological findings Blood pressure elevated without history of HTN Coagulation defect, unspecified ([facility]) [facility] [...] Narrative No data available for this section [facility] Discharge instructions No data available for this section [facility]ructionsNot on filedocumented in this encounter [facility] [...] be sent through Care Everywhere. * Preeclampsia ([place]) documented in [facility] encounter[facility] SystemInstructionsNot on file documented in this encounterProMedica Health SystemInstructionsNot on file documented in this encounterProMedica Health SystemInstructionsNot on file documented in this encounterProMedica Health SystemInstructionsNot on file documented in this encounterProMedica Health SystemInstructions* Attachments The following attachments cannot be sent through Care Everywhere. * Preeclampsia ([place]) documented in this encounterProMedica Health SystemInstructionsNot on file documented in this encounterProMedica Health SystemInstructionsNot on file documented in this encounterProMedica Health SystemInstructionsNot on file documented in this encounterProMedica Health SystemProgress note No data available for this section [facility]Reason for [facility] (narrative) , pt reported hx of nasal polyps and deviated septum but never had surgery done Referred by: Shirlene YEBOAH, Lourdes Baltazar [facility] Reason for visit Narrative* Consultation (Urgent) - Pending ReviewSpecialtyDiagnoses / ProceduresReferred By ContactReferred To ContactRheumatology Diagnoses 22 weeks gestation of Antiphospholipid syndrome complicating , antepartum Mukul Noyola MD [address] [facility], [address] [place] [id number] Phone: tel: fax: Sam Callahan MD MPH [address] [id number] Phone: tel: fax: Referral IDStatusReasonStart DateExpiration DateVisits RequestedVisits [id number] Review Specialty Services Required [facility] Summary Purpose Family History No [...] a 30 minute post dose observation. Rate/Dose Tolbbk4904/05/2022 2:44 PM YSU677.67 mL/pcKvyolsjhn49/07/2022 2:25 PM IDQ064 mL/hrNew Bag/Syringe/Mzikuv0504/05/2022 1:52 PM XOL662 mg166.67 mL/hr Medication OrderMAR ActionAction DateDoseRateSite iron sucrose 300 mg in NaCl 0.9% 250 mL (VENOFER) 300 mg, INTRAVENOUS, at 166.67 mL/hr, Administer over 90 Minutes, ONCE, 1 dose, On Christie 04/20/22 at 1400, Please conduct a 30 minute post dose observation. New Bag/Syringe/Uayeyu0904/20/2022 2:01 PM [id number] mg166.67 mL/hr Additional Source Comments INFORMATION SOURCE (unrecogn ized section and content) DATE CREATED AUTHOR 10/22/2017 [facility] DATE CREATED AUTHOR AUTHOR'S ORGANIZ ATION 11/14/2017 [employer] DATE CREATED AUTHOR AUTHOR'S ORGANIZ ATION 06/18/2018 [facility] DATE CREATED AUTHOR AUTHOR'S ORGANIZ ATION 12/30/2021 [facility] DATE CREATED AUTHOR AUTHOR'S ORGANIZ ATION 06/09/2022 [facility] DATE CREATED AUTHOR AUTHOR'S ORGANIZ ATION 09/29/2023 [facility] DATE CREATED AUTHOR AUTHOR'S ORGANIZ ATION 12/03/2023 [facility] DATE CREATED AUTHOR AUTHOR'S ORGANIZ ATION 12/09/2023 [facility] DATE CREATED AUTHOR AUTHOR'S ORGANIZ ATION 12/10/2023 [facility] DATE CREATED AUTHOR AUTHOR'S ORGANIZ ATION 01/27/2024 [facility] DATE CREATED AUTHOR AUTHOR'S ORGANIZ ATION 02/24/2024 [facility] DATE CREATED AUTHOR AUTHOR'S ORGANIZ ATION 02/26/2024 [facility] DATE CREATED AUTHOR AUTHOR'S ORGANIZ ATION 02/28/2024 [facility] DATE CREATED AUTHOR AUTHOR'S ORGANIZ ATION 03/02/2024 [facility] DATE CREATED AUTHOR AUTHOR'S ORGANIZ ATION 03/03/2024 [facility] DATE CREATED AUTHOR AUTHOR'S ORGANIZ ATION 05/15/2024 [facility] DATE CREATED AUTHOR AUTHOR'S ORGANIZ ATION 05/17/2024 [facility] DATE CREATED AUTHOR AUTHOR'S ORGANIZ ATION 05/18/2024 [facility] DATE CREATED AUTHOR AUTHOR'S ORGANIZ ATION 05/19/2024 [facility] DATE CREATED AUTHOR AUTHOR'S ORGANIZ ATION 06/11/2024 [facility] DATE CREATED AUTHOR AUTHOR'S ORGANIZ ATION 06/17/2024 [facility] DATE CREATED AUTHOR AUTHOR'S ORGANIZ ATION 07/09/2024 [facility] DATE CREATED AUTHOR AUTHOR'S ORGANIZ ATION 07/12/2024 [facility] DATE CREATED AUTHOR AUTHOR'S ORGANIZ ATION 07/15/2024 [facility] DATE CREATED AUTHOR AUTHOR'S ORGANIZ ATION 08/24/2024 [facility] DATE CREATED AUTHOR AUTHOR'S ORGANIZ ATION 08/26/2024 [facility] DATE CREATED AUTHOR AUTHOR'S ORGANIZ ATION 09/01/2024 [facility] DATE CREATED AUTHOR AUTHOR'S ORGANIZ ATION 09/08/2024 [facility] DATE CREATED AUTHOR AUTHOR'S ORGANIZ ATION 09/11/2024 [facility] DATE CREATED AUTHOR AUTHOR'S ORGANIZ ATION 12/09/2024 [facility] DATE CREATED AUTHOR AUTHOR'S ORGANIZ ATION 01/18/2025 [facility] DATE CREATED AUTHOR AUTHOR'S ORGANIZ ATION 02/07/2025 [facility] DATE CREATED AUTHOR AUTHOR'S ORGANIZ ATION 02/13/2025 [facility] DATE CREATED AUTHOR AUTHOR'S ORGANIZ ATION 03/03/2025 [facility] DATE CREATED AUTHOR AUTHOR'S ORGANIZ ATION 03/11/2025 [facility] DATE CREATED AUTHOR AUTHOR'S ORGANOSEAS ATION 03/12/2025 [facility] Source Comments (unrecognize d section and content) In the event this informatio n is protected by the Federal Confidentiality of Alcohol and Drug Abuse Patient Records regulations: The Federal rules restrict any use of the information to criminally investigate or prosecute any alcohol or drug abuse patient.[facility] the event this information is protected by the Federal Confidentiality of Alcohol and Drug Abuse Patient Records regulations: The Federal rules restrict any use of the information to criminally investigate or prosecute any alcohol or drug abuse patient.[facility] DaytonIn the event this information is protected by the Federal Confidentiality of Alcohol and Drug Abuse Patient Records regulations: The Federal rules restrict any use of the information to criminally investigate or prosecute any alcohol or drug abuse patient.[facility] DaytonIn the event this information is protected by the Federal Confidentiality of Alcohol and Drug Abuse Patient Records regulations: The Federal rules restrict any use of the information to criminally investigate or prosecute any alcohol or drug abuse patient.[facility] DaytonIn the event this information is protected by the Federal Confidentiality of Alcohol and Drug Abuse Patient Records regulations: The Federal rules restrict any use of the information to criminally investigate or prosecute any alcohol or drug abuse patient.[facility] DaytonIn the event this information is protected by the Federal Confidentiality of Alcohol and Drug Abuse Patient Records regulations: The Federal rules restrict any use of the information to criminally investigate or prosecute any alcohol or drug abuse patient.[facility] DaytonIn the event this information is protected by the Federal Confidentiality of Alcohol and Drug Abuse Patient Records regulations: The Federal rules restrict any use of the information to criminally investigate or prosecute any alcohol or drug abuse patient.[facility] DaytonIn the event this information is protected by the Federal Confidentiality of Alcohol and Drug Abuse Patient Records regulations: The Federal rules restrict any use of the information to criminally investigate or prosecute any alcohol or drug abuse patient.[facility] DaytonIn the event this information is protected by the Federal Confidentiality of Alcohol and Drug Abuse Patient Records regulations: The Federal rules restrict any use of the information to criminally investigate or prosecute any alcohol or drug abuse patient.[facility] DaytonIn the event this information is protected by the Federal Confidentiality of Alcohol and Drug Abuse Patient Records regulations: The Federal rules restrict any use of the information to criminally investigate or prosecute any alcohol or drug abuse patient.[facility] DaytonIn the event this information is protected by the Federal Confidentiality of Alcohol and Drug Abuse Patient Records regulations: The Federal rules restrict any use of the information to criminally investigate or prosecute any alcohol or drug abuse patient.[facility] DaytonIn the event this information is protected by the Federal Confidentiality of Alcohol and Drug Abuse Patient Records regulations: The Federal rules restrict any use of the information to criminally investigate or prosecute any alcohol or drug abuse patient.[facility] DaytonIn the event this information is protected by the Federal Confidentiality of Alcohol and Drug Abuse Patient Records regulations: The Federal rules restrict any use of the information to criminally investigate or prosecute any alcohol or drug abuse patient.[facility] DaytonIn the event this information is protected by the Federal Confidentiality of Alcohol and Drug Abuse Patient Records regulations: The Federal rules restrict any use of the information to criminally investigate or prosecute any alcohol or drug abuse patient.[facility] DaytonIn the event this information is protected by the Federal Confidentiality of Alcohol and Drug Abuse Patient Records regulations: The Federal rules restrict any use of the information to criminally investigate or prosecute any alcohol or drug abuse patient.[facility] DaytonIn the event this information is protected by the Federal Confidentiality of Alcohol and Drug Abuse Patient Records regulations: The Federal rules restrict any use of the information to criminally investigate or prosecute any alcohol or drug abuse patient.[facility] DaytonIn the event this information is protected by the Federal Confidentiality of Alcohol and Drug Abuse Patient Records regulations: The Federal rules restrict any use of the information to criminally investigate or prosecute any alcohol or drug abuse patient.[facility] DaytonIn the event this information is protected by the Federal Confidentiality of Alcohol and Drug Abuse Patient Records regulations: The Federal rules restrict any use of the information to criminally investigate or prosecute any alcohol or drug abuse patient.[facility] DaytonIn the event this information is protected by the Federal Confidentiality of Alcohol and Drug Abuse Patient Records regulations: The Federal rules restrict any use of the information to criminally investigate or prosecute any alcohol or drug abuse patient.[facility] DaytonIn the event this information is protected by the Federal Confidentiality of Alcohol and Drug Abuse Patient Records regulations: The Federal rules restrict any use of the information to criminally investigate or prosecute any alcohol or drug abuse patient.[facility] DaytonIn the event this information is protected by the Federal Confidentiality of Alcohol and Drug Abuse Patient Records regulations: The Federal rules restrict any use of the information to criminally investigate or prosecute any alcohol or drug abuse patient.[facility] DaytonIn the event this information is protected by the Federal Confidentiality of Alcohol and Drug Abuse Patient Records regulations: The Federal rules restrict any use of the information to criminally investigate or prosecute any alcohol or drug abuse patient.[facility] DaytonIn the event this information is protected by the Federal Confidentiality of Alcohol and Drug Abuse Patient Records regulations: The Federal rules restrict any use of the information to criminally investigate or prosecute any alcohol or drug abuse patient.[facility] DaytonIn the event this information is protected by the Federal Confidentiality of Alcohol and Drug Abuse Patient Records regulations: The Federal rules restrict any use of the information to criminally investigate or prosecute any alcohol or drug abuse patient.[facility] DaytonIn the event this information is protected by the Federal Confidentiality of Alcohol and Drug Abuse Patient Records regulations: The Federal rules restrict any use of the information to criminally investigate or prosecute any alcohol or drug abuse patient.[facility] DaytonIn the event this information is protected by the Federal Confidentiality of Alcohol and Drug Abuse Patient Records regulations: The Federal rules restrict any use of the information to criminally investigate or prosecute any alcohol or drug abuse patient.[facility] DaytonIn the event this information is protected by the Federal Confidentiality of Alcohol and Drug Abuse Patient Records regulations: The Federal rules restrict any use of the information to criminally investigate or prosecute any alcohol or drug abuse patient.[facility] DaytonIn the event this information is protected by the Federal Confidentiality of Alcohol and Drug Abuse Patient Records regulations: The Federal rules restrict any use of the information to criminally investigate or prosecute any alcohol or drug abuse patient.[facility] DaytonIn the event this information is protected by the Federal Confidentiality of Alcohol and Drug Abuse Patient Records regulations: The Federal rules restrict any use of the information to criminally investigate or prosecute any alcohol or drug abuse patient.[facility] DaytonIn the event this information is protected by the Federal Confidentiality of Alcohol and Drug Abuse Patient Records regulations: The Federal rules restrict any use of the information to criminally investigate or prosecute any alcohol or drug abuse patient.[facility] DaytonIn the event this information is protected by the Federal Confidentiality of Alcohol and Drug Abuse Patient Records regulations: The Federal rules restrict any use of the information to criminally investigate or prosecute any alcohol or drug abuse patient.[facility] DaytonIn the event this information is protected by the Federal Confidentiality of Alcohol and Drug Abuse Patient Records regulations: The Federal rules restrict any use of the information to criminally investigate or prosecute any alcohol or drug abuse patient.[facility] DaytonIn the event this information is protected by the Federal Confidentiality of Alcohol and Drug Abuse Patient Records regulations: The Federal rules restrict any use of the information to criminally investigate or prosecute any alcohol or drug abuse patient.[facility] DaytonIn the event this information is protected by the Federal Confidentiality of Alcohol and Drug Abuse Patient Records regulations: The Federal rules restrict any use of the information to criminally investigate or prosecute any alcohol or drug abuse patient.[facility] DaytonIn the event this information is protected by the Federal Confidentiality of Alcohol and Drug Abuse Patient Records regulations: The Federal rules restrict any use of the information to criminally investigate or prosecute any alcohol or drug abuse patient.[facility] DaytonIn the event this information is protected by the Federal Confidentiality of Alcohol and Drug Abuse Patient Records regulations: The Federal rules restrict any use of the information to criminally investigate or prosecute any alcohol or drug abuse patient.[facility] DaytonIn the event this information is protected by the Federal Confidentiality of Alcohol and Drug Abuse Patient Records regulations: The Federal rules restrict any use of the information to criminally investigate or prosecute any alcohol or drug abuse patient.[facility] DaytonIn the event this information is protected by the Federal Confidentiality of Alcohol and Drug Abuse Patient Records regulations: The Federal rules restrict any use of the information to criminally investigate or prosecute any alcohol or drug abuse patient.[facility] DaytonIn the event this information is protected by the Federal Confidentiality of Alcohol and Drug Abuse Patient Records regulations: The Federal rules restrict any use of the information to criminally investigate or prosecute any alcohol or drug abuse patient.[facility] DaytonIn the event this information is protected by the Federal Confidentiality of Alcohol and Drug Abuse Patient Records regulations: The Federal rules restrict any use of the information to criminally investigate or prosecute any alcohol or drug abuse patient.[facility] DaytonIn the event this information is protected by the Federal Confidentiality of Alcohol and Drug Abuse Patient Records regulations: The Federal rules restrict any use of the information to criminally investigate or prosecute any alcohol or drug abuse patient.[facility] DaytonIn the event this information is protected by the Federal Confidentiality of Alcohol and Drug Abuse Patient Records regulations: The Federal rules restrict any use of the information to criminally investigate or prosecute any alcohol or drug abuse patient.[facility] DaytonIn the event this information is protected by the Federal Confidentiality of Alcohol and Drug Abuse Patient Records regulations: The Federal rules restrict any use of the information to criminally investigate or prosecute any alcohol or drug abuse patient.[facility] DaytonIn the event this information is protected by the Federal Confidentiality of Alcohol and Drug Abuse Patient Records regulations: The Federal rules restrict any use of the information to criminally investigate or prosecute any alcohol or drug abuse patient.[facility] DaytonIn the event this information is protected by the Federal Confidentiality of Alcohol and Drug Abuse Patient Records regulations: The Federal rules restrict any use of the information to criminally investigate or prosecute any alcohol or drug abuse patient.[facility] DaytonIn the event this information is protected by the Federal Confidentiality of Alcohol and Drug Abuse Patient Records regulations: The Federal rules restrict any use of the information to criminally investigate or prosecute any alcohol or drug abuse patient.[facility] DaytonIn the event this information is protected by the Federal Confidentiality of Alcohol and Drug Abuse Patient Records regulations: The Federal rules restrict any use of the information to criminally investigate or prosecute any alcohol or drug abuse patient.[facility] DaytonIn the event this information is protected by the Federal Confidentiality of Alcohol and Drug Abuse Patient Records regulations: The Federal rules restrict any use of the information to criminally investigate or prosecute any alcohol or drug abuse patient.[facility] DaytonIn the event this information is protected by the Federal Confidentiality of Alcohol and Drug Abuse Patient Records regulations: The Federal rules restrict any use of the information to criminally investigate or prosecute any alcohol or drug abuse patient.[facility] DaytonIn the event this information is protected by the Federal Confidentiality of Alcohol and Drug Abuse Patient Records regulations: The Federal rules restrict any use of the information to criminally investigate or prosecute any alcohol or drug abuse patient.[facility] DaytonIn the event this information is protected by the Federal Confidentiality of Alcohol and Drug Abuse Patient Records regulations: The Federal rules restrict any use of the information to criminally investigate or prosecute any alcohol or drug abuse patient.[facility] DaytonIn the event this information is protected by the Federal Confidentiality of Alcohol and Drug Abuse Patient Records regulations: The Federal rules restrict any use of the information to criminally investigate or prosecute any alcohol or drug abuse patient.[facility] DaytonIn the event this information is protected by the Federal Confidentiality of Alcohol and Drug Abuse Patient Records regulations: The Federal rules restrict any use of the information to criminally investigate or prosecute any alcohol or drug abuse patient.[facility] DaytonIn the event this information is protected by the Federal Confidentiality of Alcohol and Drug Abuse Patient Records regulations: The Federal rules restrict any use of the information to criminally investigate or prosecute any alcohol or drug abuse patient.[facility] DaytonIn the event this information is protected by the Federal Confidentiality of Alcohol and Drug Abuse Patient Records regulations: The Federal rules restrict any use of the information to criminally investigate or prosecute any alcohol or drug abuse patient.[facility] Care Teams (unrecognized sec tion and content) Team MemberRelationshipSpecialtyStart DateEnd Date Humaira Gaviria MD [address] [place] [address] PCP - GeneralInternal Medicine07/05/18 Jonny Wilcox MD [address] [facility] [place] [address] Primary Staff PhysicianCardiology07/16/18Team MemberRelationshipSpecialtyStart DateEnd Date Humaira Gaviria MD [address] [place] [address] PCP - GeneralInternal Medicine07/05/18 Jonny Wilcox MD [address] [place] [address] Primary Staff PhysicianCardiology07/16/18Team MemberRelationshipSpecialtyStart DateEnd Date Humaira Gaviria MD [address] [place] [address] PCP - GeneralInternal Medicine07/05/18 Jonny Wilcox MD [address] [place] [address] Primary Staff PhysicianCardiology07/16/18Team MemberRelationshipSpecialtyStart DateEnd Date Humaira Gaviria MD [address] [facility] [address] PCP - GeneralInternal Medicine07/05/18 Jonny Wilcox MD [address] [place] [address] Primary Staff PhysicianCardiology07/16/18Team MemberRelationshipSpecialtyStart DateEnd Date Humaira Gaviria MD [address] [facility] [address] PCP - GeneralInternal Medicine07/05/18 Jonny Wilcox MD [address] [place] [address] Primary Staff PhysicianCardiology07/16/18 [place] [address] [place] [address] PhysicianHematology/Oncology09/14/21 Davida Restrepo RN [address] [place] [address] Specialty Care CoordinatorHematology/Oncology09/14/21Team MemberRelationship SpecialtyStart DateEnd Date Penelope Casas [facility] [place] [address] PCP - GeneralFamily Medicine10/04/20Team MemberRelationshipSpecialtyStart DateEnd Date Humaira Gaviria MD [address] [facility] [address] PCP - GeneralInternal Medicine3/8/19 Jonny Wilcox MD [address] [place] [address] Primary Staff PhysicianCardiology07/16/18 [place] [address] [place] [address] PhysicianHematology/Oncology09/14/21 Davida Restrepo, RN [address] [place] [address] Specialty Care CoordinatorHematology/Oncology09/14/21Te MemberRelationship SpecialtyStart DateEnd Date Penelope Casas, [address] [place] [address] PCP - GeneralFamily Iiutgxis88/3/22 Jonny Wilcox MD [address] [place] [address] Primary Staff PhysicianCardiology07/16/18 [place] [address] [place] [address] PhysicianHematology/Oncology09/14/21 Davida Restrepo, RN [address] [place] [address] Specialty Care CoordinatorHematology/Oncology09/14/21Te MemberRelationship SpecialtyStart DateEnd Date Penelope Casas DO [address] [place] [address] PCP - GeneralFamily Flmqdsfl14/3/22 Jonny Wilcox MD [address] [place] [address] Primary Staff PhysicianCardiology07/16/18 [place] [address] [place] [address] PhysicianHematology/Oncology09/14/21 Davida Restrepo, RN [address] [place] [address] Specialty Care CoordinatorHematology/Oncology09/14/21Te MemberRelationship SpecialtyStart DateEnd Date Penelope Casas, DO [address] [place] [address] PCP - GeneralFamily Kmztyyab56/3/22 Jonny Wilcox MD [address] [place] [address] Primary Staff PhysicianCardiology07/16/18 [place] [address] [place] [address] PhysicianHematology/Oncology09/14/21 Davida Restrepo, RN [address] [place] [address] Specialty Care CoordinatorHematology/Oncology09/14/21Te MemberRelationship SpecialtyStart DateEnd Date Penelope Casas, DO [address] [place] [address] PCP - Generalmily Wldgoyal86/3/22 Jonny Wilcox MD [address] [place] [address] Primary Staff PhysicianCardiology07/16/18 [place] [address] [place] [address] PhysicianHematology/Oncology09/14/21 Davida Restrepo, RN [address] [place] [address] Specialty Care CoordinatorHematology/Oncology09/14/21Te MemberRelationship SpecialtyStart DateEnd [facility] Penelope Casas, DO [address] [place] [address] PCP - GeneralFamily Axjjfept62/3/22 Jonny Wilcox MD [address] [place] [address] Primary Staff PhysicianCardiology07/16/18 [place] [address] [place] [address] PhysicianHematology/Oncology09/14/21 Davida Restrepo, RN [address] [place] [address] Specialty Care CoordinatorHematology/Oncology09/14/21Te MemberRelationship SpecialtyStart DateEnd [facility] Penelope Casas, DO [address] [place] [address] PCP - GeneralFamily Glurlarx84/3/22 Jonny Wilcox MD [address] [place] [address] Primary Staff PhysicianCardiology07/16/18 [place] [address] [place] [address] PhysicianHematology/Oncology09/14/21 Davida Restrepo, RN [address] [place] [address] Specialty Care CoordinatorHematology/Oncology09/14/21Te MemberRelationship SpecialtyStart Date[facility] Penelope Casas, DO [address] [place] [address] PCP - GeneralFamily Kodmszxv65/3/22 Jonny Wilcox MD [address] [place] [address] Primary Staff PhysicianCardiology07/16/18 [place] [address] [place] [address] PhysicianHematology/Oncology09/14/21 Davida Restrepo, RN [address] [place] [address] Specialty Care CoordinatorHematology/Oncology09/14/21Te MemberRelationship SpecialtyStart DateEnd Date Penelope Casas, [address] [place] [address] PCP - GeneralFamily Shfgzmsw54/3/22 Jonny Wilcox MD [address] [place] [address] Primary Staff PhysicianCardiology07/16/18 [place] [address] [place] [address] PhysicianHematology/Oncology09/14/21 Davida Restrepo, MARSHA [address] [place] [address] Specialty Care CoordinatorHematology/Oncology09/14/21Te MemberRelationship SpecialtyStart DateEnd Date Penelope Casas, DO [address] [place] [address] PCP - Generalmily Fteqpmvb24/3/22 Jonny Wilcox MD [address] [place] [address] Primary Staff PhysicianCardiology07/16/18 [place] [address] [place] [address] PhysicianHematology/Oncology09/14/21 Davida Restrepo RN [address] [place], [place] [address] Specialty Care CoordinatorHematology/Oncology09/14/21Team MemberRelationship SpecialtyStart DateEnd Date Penelope Casas DO [address] [place] [address] PCP - Generalmily Sepsdaya22/3/22 Jonny Wilcox MD [address] [place] [address] Primary Staff PhysicianCardiology07/16/18 [place] [address] [place] [address] PhysicianHematology/Oncology09/14/21 Davida Restrepo RN [address] [place] [address] Specialty Care CoordinatorHematology/Oncology09/14/21Te MemberRelationship SpecialtyStart DateEnd Date Penelope Casas DO [address] [place] [address] [facility] - [facility] Htiriukq47/3/22 Jonny Wilcox MD [address] [place] [address] Primary Staff PhysicianCardiology07/16/18 [place] [address] [place] [address] PhysicianHematology/Oncology09/14/21 Davida Restrepo RN [address] [place] [address] Specialty Care CoordinatorHematology/Oncology09/14/21Team MemberRelationship Specialtyart DateEnd Penelope Casas DO [address] [place] [address] PCP - GeneralFamily Uyuwipib33/3/22 Jonny Wilcox MD [address] [place] [address] Primary Staff PhysicianCardiology07/16/18 [place] [address] [place] [address] PhysicianHematology/Oncology09/14/21 Davida Restrepo RN [address] [place] [address] Specialty Care CoordinatorHematology/Oncology09/14/21Te MemberRelationship SpecialtyStart DateEnd Date Penelope Casas DO [address] [place] [address] PCP - Generalmily Dclzsfne70/3/22 Jonny Wilcox MD [address] [place] [address] Primary Staff PhysicianCardiology07/16/18 [place] [address] [place] [address] PhysicianHematology/Oncology09/14/21 Davida Restrepo RN [address] [place] [address] Specialty Care CoordinatorHematology/Oncology09/14/21Team MemberRelationship SpecialtyStart DateEnd Date Penelope Casas DO [address] [email or web address] [place] [address] PCP - [facility] Kloqwzfz21/3/22 Jonny Wilcox MD [address] [place] [address] Primary Staff PhysicianCardiology07/16/18 [place] [address] [place] [address] PhysicianHematology/Oncology09/14/21 Davida Restrepo, RN [address] [place] [address] Specialty Care CoordinatorHematology/Oncology09/14/21Team MemberRelationship SpecialtyStart DateEnd Date Penelope Casas DO [address] [address] [[email or web address]] [place] [address] PCP - [facility] Djmgncsa38/3/22 Jonny Wilcox MD [address] [place] [address] Primary Staff PhysicianCardiology07/16/18 [place] [address] [place] [address] PhysicianHematology/Oncology09/14/21 Davida Restrepo RN [address] [place], [place] [address] Specialty Care CoordinatorHematology/Oncology09/14/21Team MemberRelationship SpecialtyStart DateEnd Date Penelope Casas DO [address] [facility] [place] [address] PCP - Generalmily Aphzgehw31/3/22 Jonny Wilcox MD [address] [place] [address] Primary Staff PhysicianCardiology07/16/18 [place] [address] [place] [address] PhysicianHematology/Oncology09/14/21 Davida Restrepo, RN [address] [place] [address] Specialty Care CoordinatorHematology/Oncology09/14/21Team MemberRelationship SpecialtyStart DateEnd Date Penelope Casas DO [address] [facility] [place] [place] [address] PCP - Generalmily Zqozgwyv12/3/22 Jonny Wilcox MD [address] [place] [address] Primary Staff PhysicianCardiology07/16/18 [place] [address] [place] [address] PhysicianHematology/Oncology09/14/21 Davida Restrepo, RN [address] [place] [address] Specialty Care CoordinatorHematology/Oncology09/14/21Team MemberRelationship SpecialtyStart DateEnd Date Penelope Casas DO [address] [facility] [place] [address] PCP - GeneralFamily Jbfymmsy03/3/22 Jonny Wilcox MD [address] [place] [address] Primary Staff PhysicianCardiology07/16/18 [place] [address] [place] [address] PhysicianHematology/Oncology09/14/21 Davdia Restrepo, MARSHA [address] [place] [address] Specialty Care CoordinatorHematology/Oncology09/14/21Team MemberRelationship SpecialtyStart DateEnd Date Penelope Casas DO [address] [address] [facility] [place] [address] PCP - Generalmily Jolucjfl66/3/22 Jonny Wilcox MD [address] [place] [address] Primary Staff PhysicianCardiology07/16/18 [place] [address] [place] [address] PhysicianHematology/Oncology09/14/21 Davida Restrepo RN [address] [facility] [place] [address] Specialty Care CoordinatorHematology/Oncology09/14/21Team MemberRelationship SpecialtyStart DateEnd Date Penelope Casas DO [address] [place] [address] PCP - GeneralFamily Ewyzkpkg79/3/22 Jonny Wilcox MD [address] [facility] [place] [address] Primary Staff PhysicianCardiology07/16/18 [place] [address] [place] [address] PhysicianHematology/Oncology09/14/21 Davida Restrepo RN [address] [facility] [place] [address] Specialty Care CoordinatorHematology/Oncology09/14/21Team MemberRelationship SpecialtyStart DateEnd Date Penelope Casas DO [address] [place] [address] PCP - GeneralFamily Jdsntngv27/3/22 Jonny Wilcox MD [address] [place] [address] Primary Staff PhysicianCardiology07/16/18 [place] [address] [place] [address] PhysicianHematology/Oncology09/14/21 Davida Restrepo RN [address] [facility] [place] [address] Specialty Care CoordinatorHematology/Oncology09/14/21Te MemberRelationship SpecialtyStart DateEnd Date Penelope Casas DO [address] [address] [facility] [place] [address] PCP - GeneralFamily Ochciiqb36/3/22 Jonny Wilcox MD [address] [place] [address] Primary Staff PhysicianCardiology07/16/18 [place] [address] [place] [address] PhysicianHematology/Oncology09/14/21 Davida Restrepo, MARSHA [address] [place] [address] Specialty Care CoordinatorHematology/Oncology09/14/21Team MemberRelationship SpecialtyStart DateEnd Date Penelope Casas DO [address] [facility] [place] [address] PCP - [facility] Brdbkjoc06/3/22 Jonny Wilcox MD [address] [place] [address] Primary Staff PhysicianCardiology07/16/18 [place] [address] [place] [address] PhysicianHematology/Oncology09/14/21 Davida Restrepo RN [address] [place] [address] Specialty Care CoordinatorHematology/Oncology09/14/21Team MemberRelationship SpecialtyStart DateEnd Date Penelope Casas DO [address] [facility] [place] [address] PCP - GeneralFamily Jwcdbvkb80/3/22 Jonny Wilcox MD [address] [place] [address] Primary Staff PhysicianCardiology07/16/18 [place] [address] [place] [address] PhysicianHematology/Oncology09/14/21 Davida Restrepo, RN [address] [place] [address] Specialty Care CoordinatorHematology/Oncology09/14/21Team MemberRelationship SpecialtyStart DateEnd Date Penelope Casas MD [address] [place] [address] PCP - GeneralFamily Medicine11/07/23Team MemberRelationshipSpecialtyStart DateEnd Date Penelope Casas MD [address] [place] [address] PCP - GeneralFamily Medicine11/07/23Team MemberRelationshipSpecialtyStart DateEnd Date Penelope Casas MD [address] [place] [address] PCP - Generalmily Medicine11/07/23Team MemberRelationshipSpecialtyStart DateEnd Date Penelope Casas MD [address] [place] [address] PCP - Generalmily Medicine11/07/23Team MemberRelationshipSpecialtyStart DateEnd Date Penelope Casas MD [address] [place] [address] PCP - Generalmily Medicine11/07/23 Team Status: Inactive Member Role Status Dates Wilton Herrmann DO Attending Provider Active Start : May 10, 2024 End: May 10, 2024Team MemberRelationshipSpecialtyStart DateEnd Date Penelope Casas DO [address] [place] [address] PCP - GeneralFamily Kxcyxmnb19/3/22 Jonny Wilcox MD [address] [place], [place] [address] Primary Staff PhysicianCardiology07/16/18 [place] [address] [place], [place] [address] PhysicianHematology/Oncology09/14/21 Davida Restrepo RN [address] [place], [place] [address] Specialty Care CoordinatorHematology/Oncology09/14/21Team MemberRelationship SpecialtyStart DateEnd Date Penelope Casas MD [address] [place] [id number] PCP - Generalmily Medicine11/07/23Team MemberRelationshipSpecialtyStart DateEnd Date Penelope Casas MD [address] [place] [address] PCP - Generalmily Medicine11/07/23Team MemberRelationshipSpecialtyStart DateEnd Date Penelope Casas MD [address] [place] [address] PCP - GeneralFloyd County Medical Centerly Medicine11/07/23Team MemberRelationshipSpecialtyStart DateEnd Date Penelope Casas MD [address] [place] [address] PCP - GeneralFamily Medicine11/07/23Team MemberRelationshipSpecialtyStart DateEnd Date Penelope Casas DO [address] [place] [address] PCP - GeneralFamily Dexbkmjd94/3/22 Jonny Wilcox MD [address] [place] [address] Primary Staff PhysicianCardiology07/16/18 [place] [address] [place] [address] PhysicianHematology/Oncology09/14/21 Davida Restrepo, MARSHA [address] [place] [address] Specialty Care CoordinatorHematology/Oncology09/14/21Team MemberRelationship SpecialtyStart DateEnd Date Penelope Casas MD [address] [facility] [place] [address] PCP - GeneralFamily Medicine11/07/23Team MemberRelationshipSpecialtyStart DateEnd Date Penelope Casas MD [address] [facility] [place] [address] PCP - GeneralFamily Medicine11/07/23Team MemberRelationshipSpecialtyStart DateEnd Date Penelope Casas DO PCP - GeneralFamily Medicine07/07/19Team MemberRelationshipSpecialtyStart DateEnd Date Penelope Casas DO PCP - GeneralFamily Medicine07/07/19Team MemberRelationshipSpecialtyStart DateEnd Date Penelope Casas MD [address] [place] [address] PCP - GeneralFamily Medicine11/07/23Team MemberRelationshipSpecialtyStart DateEnd Date Penelope Casas DO PCP - GeneralFamily Medicine07/07/19Team MemberRelationshipSpecialtyStart DateEnd Date Penelope Casas DO PCP - GeneralFamily Medicine07/07/19Team MemberRelationshipSpecialtyStart DateEnd Date Penelope Casas DO [address] [facility] [[email or web address]] [place] [address] PCP - GeneralFamily Imegalkh56/3/22 Jonny Wilcox MD [address] [place] [address] Primary Staff PhysicianCardiology07/16/18 [place] [address] [place] [address] PhysicianHematology/Oncology09/14/21 Davida Restrepo, MARSHA [address] [place] [address] Specialty Care CoordinatorHematology/Oncology09/14/21Team MemberRelationship SpecialtyStart DateEnd Date Penelope Casas DO PCP - GeneralFamily Medicine07/07/19Team MemberRelationshipSpecialtyStart DateEnd Date Penelope Casas MD [address] [place] [address] PCP - GeneralFamily Medicine11/07/23Team MemberRelationshipSpecialtyStart DateEnd Date Penelope Casas MD [address] [place] [address] PCP - GeneralFamily Medicine11/07/23Team MemberRelationshipSpecialtyStart DateEnd Date Penelope Casas DO PCP - GeneralFamily Medicine07/07/19Team MemberRelationshipSpecialtyStart DateEnd Date Penelope Casas DO PCP - GeneralFamily Medicine07/07/19Team MemberRelationshipSpecialtyStart DateEnd Date Penelope Casas MD [address] [place] [address] PCP - GeneralFamily Medicine11/07/23Team MemberRelationshipSpecialtyStart DateEnd Date Penelope Casas MD [address] [place] [address] PCP - GeneralFamily Medicine11/07/23Team MemberRelationshipSpecialtyStart DateEnd Date Penelope Casas DO PCP - GeneralFamily Medicine07/07/19Team MemberRelationshipSpecialtyStart DateEnd Date Penelope Casas DO [address] [place] [address] PCP - GeneralFamily Nplpxbez32/3/22 Jonny Wilcox MD [address] [place] [address] Primary Staff PhysicianCardiology07/16/18 [place] [address] [place], [place] [address] PhysicianHematology/Oncology09/14/21 Davida Restrepo, MARSHA [address] [place] [address] Specialty Care CoordinatorHematology/Oncology09/14/21Team MemberRelationship SpecialtyStart DateEnd Date Penelope Casas DO PCP - GeneralFamily Medicine07/07/19Team MemberRelationshipSpecialtyStart DateEnd Date Penelope Casas DO PCP - GeneralFamily Medicine07/07/19Team MemberRelationshipSpecialtyStart DateEnd Date Penelope Casas DO PCP - GeneralFamily Medicine07/07/19Team MemberRelationshipSpecialtyStart DateEnd Date Penelope Casas DO PCP - GeneralFamily Medicine07/07/19Team MemberRelationshipSpecialtyStart DateEnd Date Penelope Casas DO PCP - GeneralFamily Medicine07/07/19Team MemberRelationshipSpecialtyStart DateEnd Date Penelope Casas MD [address] [place] [address] PCP - GeneralFamily Medicine11/07/23Team MemberRelationshipSpecialtyStart DateEnd Date Penelope Casas DO PCP - GeneralFamily Medicine07/07/19Team MemberRelationshipSpecialtyStart DateEnd Date Penelope Casas DO PCP - GeneralFamily Medicine07/07/19Team MemberRelationshipSpecialtyStart DateEnd Date Penelope Casas DO PCP - GeneralFamily Medicine07/07/19Team MemberRelationshipSpecialtyStart DateEnd Date Penelope Casas MD [address] [place] [address] PCP - GeneralFamily Medicine11/07/23Team MemberRelationshipSpecialtyStart DateEnd Date Penelope Casas DO PCP - GeneralFamily Medicine07/07/19Team MemberRelationshipSpecialtyStart DateEnd Date Penelope Casas DO PCP - GeneralFamily Medicine07/07/19Team MemberRelationshipSpecialtyStart DateEnd Date Penelope Casas MD [address] [place] [address] PCP - GeneralFamily Medicine11/07/23Team MemberRelationshipSpecialtyStart DateEnd Date Penelope Casas MD [address] [place] [address] PCP - Generalmily Medicine11/07/23Team MemberRelationshipSpecialtyStart DateEnd Date Penelope Casas MD [address] [place] [address] PCP - Generalmily Medicine11/07/23Team MemberRelationshipSpecialtyStart DateEnd Date Penelope Casas MD [address] [place] [address] PCP - Generalmily Medicine11/07/23Team MemberRelationshipSpecialtyStart DateEnd Date Penelope Casas MD [address] [place] [address] PCP - Generalmily Medicine11/07/23Team MemberRelationshipSpecialtyStart DateEnd Date Penelope Casas MD [address] [place] [address] PCP - Generalmily Medicine11/07/23Team MemberRelationshipSpecialtyStart DateEnd Date Penelope Casas MD [address] [place] [address] PCP - Generalmily Medicine11/07/23Team MemberRelationshipSpecialtyStart DateEnd Date Penelope Casas MD [address] [facility] [place] [address] PCP - GeneralFamily Medicine11/07/23 Reason for Visit (unrecogniz ed section and content) ReasonCommentsFuture AppointmentReasonCommentsPatient QuestionReasonComments Medication QuestionReasonOnset DateCommentsRefill Ahoivpc45/13/2022ReasonOnset DateCommentsRefill Fnzirfl24/02/2022ReasonCommentsHypercoagulable state6 month follow upReasonCommentsPrimary hypercoagulable state8 week follow upReason CommentsResultsReasonCommentsAppointmentPatient QuestionMedication Question OrdersSpecialtyDiagnoses / ProceduresReferred By ContactReferred To Contact Diagnoses Iron deficiency anemia secondary to blood loss (chronic) Iron deficiency anemia of Procedures INJECTION, FERRIC DERISOMALTOSE, 10 MG Kristofer Calix MD [address] [place] [address] [place] [address] [employer] [address] [place] [address] Referral IDStatusKelseyasonSugar [place] DateExpiration DateVisits RequestedVisits [id number]/[id number] Request SpecialtyDiagnoses / ProceduresReferred By ContactReferred To Contact Diagnoses Iron deficiency anemia secondary to blood loss (chronic) Iron deficiency anemia of Procedures IRON SUCROSE INJECTION PER 1 MG Kristofer Calix MD [address] [place] [address] [place] [address] [employer] [address] [place] [address] Referral IDStatusKelseyasonStart DateExpiration DateVisits RequestedVisits [id number]/28/20221/1/[id number] DateCommentsRefill Iqztxnm3807/03/2022ReasonCommentsAnemiaFollow upReasonCommentsOrdersReason CommentsEstablished PatientReasonCommentsAppointmentReasonCommentsLab Orders ReasonCommentsPrimary hypercoagulable state (HCC)Follow upReasonComments Appointment RescheduledSpecialtyDiagnoses / ProceduresReferred By Contact Referred To Contact Diagnoses Iron deficiency anemia of Iron deficiency anemia secondary to blood loss (chronic) Procedures IRON SUCROSE INJECTION PER 1 MG Kristofer Calix MD [address] [place] [address] [place] [address] [employer] [place] [address] Referral IDStatusReasonStart DateExpiration DateVisits RequestedVisits [id number]/8/20241/5/[id number] DateCommentsRefill Ltvmbni8711/29/2023easonCommentsAmenorrheaReasonOnset DateCommentsRefill Request 4ReasonCommentsRoutine VisitReasonCommentsPatient UpdateReason CommentsAnemiafollowupReasonCommentsfollow up miscarriageReasonCommentsVaginal BleedingDizzinessReasonCommentsIrregular CyclesReasonOnset DateCommentsRefill Igsnwot3807/25/2024ReasonOnset DateCommentsRefill Abwilps6910/20/2024ReasonOnset DateCommentsRefill Nzmkekc3410/29/2024ReasonCommentsGestational DiabetesSpecialty Diagnoses / ProceduresReferred By ContactReferred To ContactMaternal and Medicine Diagnoses Gestational diabetes mellitus (GDM), antepartum, gestational diabetes method of control unspecified Wilton Herrmann, DO [address] [place] [address] [place] [address] Phone: tel: fax: [facility]- Medicine at [facility] [address] [place] [address] Phone: tel: fax: Referral IDStatusReasonStart DateExpiration DateVisits RequestedVisits [id number] Review Specialty Services Required [id number]koexb stateAnemia8 week follow up ReasonCommentsMFM consultReasonCommentsRoutine VisitReasonComments [...] BE BASED ON THE PRIMARY CLINICAL RECORDS. [employer] [facility]. provides no warranty or guarantee of the accuracy or completeness of information in this document.
[2025-03-30 18:26] VITALS: BP 123/69; PULSE 80
== END 2025-03-30 19:14 | disposition home or self-care (01) ==
LOC: FBCO 18:16 → FBC 18:21
PROVIDERS: Visit Provider Obstetrics & Gynecology
DX: O24.419 Gestational diabetes mellitus in pregnancy, unspecified control (principal); O09.523 Supervision of elderly multigravida, third trimester; O99.283 Endocrine, nutritional and metabolic diseases complicating pregnancy, third trimester; Z3A.35 35 weeks gestation of pregnancy
CPT/HCPCS: 59025

== ENCOUNTER 2025-04-02 19:09 | Outpatient (OUT) | payer MEDICAID, SELFPAY ==
--- NOTE | 2025-04-02 19:13 | US_ITS ---
[place] [id number] Patient Name: MADHU RENDON MRN: [id number] date: 1985 Sex: F Assigned Patient Location: [facility] Current Patient Location: [facility] Accession/Order Number: [id number] Exam Date: 04/02/2025 19:15 Report Date: 04/02/2025 20:01 At the request of: MYA MASSEY DO Procedure: US OB BPP w non-stress Ultrasound biophysical profile INDICATION: Gestational diabetes COMPARISON: 03/25/2025 FINDINGS AND IMPRESSION: Fetus in breech presentation. heart rate 135 beats per minutes. SARAHI measuring 14.1 cm. Biophysical profile 12/05. Impression dictated by: Mert Estrada M.D. 04/02/2025 8:01 PM Dictation Location: [place] [address] Electronically authenticated by: [id number] Y Date: 04/02/2025 20:01
--- OUTSIDE RECORDS SUMMARY | 2025-04-02 19:13 | XMS_ITS | CCD ---
Author Organization [facility] CliniSyak Care Team Providers Care Digital Production Artist Name Role Phone CROW MONGE Unavailable Unavailable BIBI CHRISTY Unavailable Unavailable ERIKA LONDON Attending Unavailab ERIKA Haddad Referring Unavailab Haseeb Chavez Attending Unavailable Crow Monge Referring Unavailable Humaira Gaviria MD Primary Care Provider [phone] Jonny Wilcox MD Unavailable Penelope CASAS Primary Care Physician Cheri Norwood Unavailable Unavailable Cosmo Elliott MD Unavailable Lauro RN, Davida Unavailable Penelope Casas Primary Care Provider [phone] PENELOPE CASAS Primary Care Unavailable PERVÍCTOR, FALGUNI C Referring Unavailable Humaira Gaviria MD Primary Care Provider Jonny Wilcox MD Unavailable [phone] Cosmo Elliott MD R Unavailable Lauro [...] Unavailable MONTEZ, DR ROQUE Primary Care Unavailable [place], DR ANGIE Luna [employer] Unavailable MONTEZ, DR [...] MONTEZ, DR ROQUE Consulting Unavailable ZIEBER, DR HUMREA Palmer [employer] Unavailable [...] Attending Unavailable Brenden ROSARIO, Jonny Tsai Unavailable [phone] Lauro RN, Davida Unavailable [phone] Penelope Casas DO Primary Care Provider [phone] Penelope CASAS Admitting Unavailable KAPBEN, Penelope Tony [...] Admitting Unavailable MONTEZ, Wilton R Attending Unavailable KAPPenleope CONTRERAS Admitting Unavailable KAPBEN, Penelope Tony Attending Unavailable KAPBEN, Penelope Tony Attending Unavailable KAPEBN, Penelope Tony Attending Unavailable MONTEZ, Wilton R [...] Unavailable Penelope Casas DO Primary Care Provider [phone] MONTEZ, Wilton R Attending Unavailable MONTEZ, Wilton [...] Unavailable Penelope Casas MD Primary Care Provider [phone] MONTEZ, Wilton R Admitting Unavailable MONTEZ, Wilton [...] of OnsetReaction(s) Facility (20 sources)Ciprofloxacin; Translations: [ciprofloxacin]Drug Lrrxigx96-91-1895 Other: See Comments, Unknown, Numbness and tingling sensation of skin (finding), Nausea (finding), Other (See Comments), [facility], [facility] Work Phone: (20 sources)Ciprofloxacin / fluocinolone; Translations: [CIPROFLOXACIN-FLUOCINOLONE]Drug Niavmom61-41-8952Iltju: See CommentsMarion Hospital (20 sources)cow milk allergenic extract; Translations: [MILK]Drug Allergy 98-89-3670Khthr: See [facility] Work Phone: (20 sources)Lactalbumin; Translations: [LACTALBUMIN]Drug Xbmfzew22-93-7785 Unknown, GI Upset, Other (See Comments)[facility] (20 sources)Lactose; Translations: [LACTOSE]Drug Mjmivdk72-98-9801LG Upset, GI DisturbanceMar[facility] Hospital (20 sources)MilkDrug Zttfdsi56-07-1422Tdptg: See Comments, Other (See Comments) [facility] (6 sources)PenicillinsDrug Ldkyxuy06-46-5455[facility]gixcnxu [facility] (20 sources)Seasonal allergy; Translations: [SEASONAL ALLERGIES]Allergy to -62-1107UN Upset, Other: See [facility] Work Phone: (20 sources)Milk Products; Translations: [Milk Products]Drug allergyIllness (finding)[facility] (20 sources)Ciprofloxacin / fluocinoloneDrug Kaedjvw70-50-8117Fgujr (See Comments)[facility] Work Phone: (1 source)Seasonal allergyPropensity to adverse reactions to -86-0878 Other (See Comments)[facility] Work Phone: (1 source)Milk-Related CompoundsPropensity to adverse reactions to drug 35-78-4103Kouxm (See Comments)[facility] Work Phone: (2 sources)PenicillinsDrug Mnksieo98-31-7170VzhcauhJakwytmcu Clinic (1 source)CiprofloxacinDrug Hzgzhvb26-07-8326[facility] (20 sources)Lactose (non-medical use)Propensity to adverse odgpjnrks49-04-1375 [facility] (20 sources)Lactose (non-medical use)Drug Dszwkvh81-36-3512GQMT [facility] (20 sources)OctacosanolDrug Rwbhqegnplc28-57-2683[facility] (20 sources)OtherAllergy to birmtjhor82-39-5662OijhzTPDX [facility] Work Phone: (3 sources)MILK CONTAINING PRODUCTS (DAIRY); Translations: [MILK CONTAINING PRODUCTS (DAIRY)]Propensity to adverse reactions to drug (disorder)05-25-2017 [facility] Medications Current Medications MedicationDrug Class(es)DatesSig (Normalized)Sig (Original)acetaminophen 300 mg / codeine phosphate 30 mg oral tablet (1 source)Opioid AgonistStart: 10-33-1731efszpwszxaoed-codeine (TYLENOL #3) 300- 30 MG per tabletAlbuterol (Eqv-ProAir HFA) 90 mcg/inh inhalation aerosol (6 sources)Start: 60-75-3861mxyk 2 puff(s) by inhalation every six hours Albuterol (Eqv-ProAir HFA) 90 mcg/inh inhalation aerosol 2 puff(s), Inhalation, q6hr, 1 EA, Refill(s) 5, [facility], 168, cm, 02/02/24 14:43:00 EDT, Height/Length Dosing, 101.1, kg, 02/02/24 14:43:00 EDT, Weight Dosing Start Date: 02/02/24 Status: Orderedazithromycin 250 mg oral tablet (20 sources)Macrolide AntimicrobialStart: 09-08-2024 End: 38-94-2495hwuxnsocnyhf (Zithromax Z-Jonny) 250 MG tablet Indications: 5 weeks gestation of ([facility]) As directed 6 tablet 09/08/2024 10/30/2024 Discontinued (Therapy completed)Start: 06-19-2024 End: 05-29-3365Ixunnhcwo 250 mg Tab = 1 packet(s), Oral, As Directed, as directed on package labeling, X 5 day(s),# 6 tab(s), Refills(s) 1, Pharmacy: [facility], 168, cm, 06/09/24 14:03:00 EST, Height/Length Dosing, 98.4, kg, 06/19/24 16:19:00 EST, Weight Dosing Start Date: 06/19/24 Stop Date: 06/29/24 Status: OrderedStart: 04-21-2024 End: 06-33-4529bbsisrgzjktb (Zithromax Z-Jonny) 250 MG tablet Indications: Upper respiratory tract infection, unspecified type As directed 6 tablet 04/21/2024 05/06/2024 Discontinuedazithromycin 250 mg Tab 5-day Dose Pack (Z-Jonny) (2 sources)Start: 02-02-2024 End: 24-62-4874yrxcvukfmazq 250 mg Tab 5-day Dose Pack (Z-Jonny) = 1 packet(s), Oral, As Directed, as directed on package labeling, X 5 day(s), # 6 tab(s), Refills(s) 0, Pharmacy: [facility], 168, cm, 02/02/24 14:43:00 EDT, Height/Length Dosing, 101.1, kg, 02/02/24 14:43:00 EDT, Weight Dosing Start Date:02/02/24 Stop Date: 02/07/24 Status: OrderedBlood Glucose Monitoring Suppl (D-Care Glucometer) w/Device kit (20 sources)Start: 10-30-2024 End: 80-79-6406Aljic Glucose Monitoring Suppl (D-Care Glucometer) w/Device kit Indications: Second trimester ([facility]) , 13 weeks gestation of ([facility]) , Multigravida of advanced maternal age in second trimester ([facility]) , Gestational diabetes mellitus (GDM), antepartum, gestational diabetesmethod of control unspecified ([facility]) , Elevated glucose tolerance test 1 kit Daily Use four times daily to check FSBS. In the morning prior to breakfast & 1 hour after each meal for a total gp5uuzqk daily. 1 kit 10/30/2024 10/30/2025 Activeblood-glucose meter (BLOOD GLUCOSE MONITORING) kit (20 sources)blood-glucose meter (BLOOD GLUCOSE MONITORING) kit 1 each by other route in the morning. Use to check blood sugar 4 times daily . Activeblood- glucose sensor (FREESTYLE JENIFER 3 PLUS SENSOR) device (13 sources)Start: 60-42-3523ubhg 2 doses by mouth onceblood-glucose sensor (FREESTYLE JENIFER 3 PLUS SENSOR) device Indications: Gestational diabetes mellit us (GDM) in second trimester controlled on oral hypoglycemic drug Wear for 15 days and change 2 each 6 12/26/2024 Activecephalexin 500 mg oral tablet (20 sources)Cephalosporin AntibacterialStart: 08-19-2021 End: 30-69-2560aplx 1 tablet by mouth twice dailycephalexin 500 mg oral tablet 500 mg = 1 tab(s), Oral, BID, X 10 day(s), # 20 tab(s), Refills(s) 0,Pharmacy: [facility], 168, cm, 08/19/21 10:50:00 [...] suspension (2 sources)Corticosteroid, Quinolone AntimicrobialStart: 10-23-2023 End: 20-45-1038Ekmnhkhs 0.3%-0.1% Susp-Otic 4 drop(s), Otic, BID for 7 day(s), 7.5 mL, Refill(s) 0, [facility] #[id number], 168, cm, 10/23/23 16:55:00 EDT, Height/Length Dosing, 106.2, kg, 10/23/23 16:55:00 EDT, WeightDosing Start Date: 10/23/23 Stop Date: 10/30/23 Status: OrderedStart: 02-15-2023 End: 64-36-5572Doiuavqk 0.3%-0.1% Susp-Otic 4 drop(s), Otic, BID for 7 day(s), 7.5 mL, Refill(s) 0, Only use if drainage or pain of ear shake well before using, [facility], 168, cm, 02/15/23 9:49:00 [...] (20 sources)Low Molecular Weight HeparinStart: 01-19-2025 End: 34-45-3015Qcldsdlzku Sodium (Lovenox) 40 MG/0.4ML solution prefilled syringe Indications: Anticoagulant long-term use , Antiphospholipid antibody positive , Antiphospholipid antibody syndrome ([facility]) Inject 40 mg as directed Daily for 30 doses 12 mL 3 01/19/2025 02/18/2025 ActiveStart: 01-09-2025 End: 55-97-8615sfosyv 0.4 mL by subcutaneous injection onceenoxaparin (LOVENOX) 40 mg/0.4 mL syringe Indications: Antiphospholipid syndrome Inject 0.4 mL (40 mg total) under the skin Every 12 (twelve) hours. 24 mL 6 01/13/2025 ActiveStart: 05-03-2023 End: 95-03-8975gddlceanir (LOVENOX) 40 mg/0.4 mL Indications: Primary hypercoagulable state (HCC) , CVA, old, speech/language deficit , Cerebral hyponatremia INJECT 1 SYRINGE SUBCUTANEOUSLY EVERY 24 HOURS 90 mL 10/29/2024 ActiveStart: 04-06-2022 End: 21-82-3705rdvpzpttmi (LOVENOX) 40 mg/0.4 mL Indications: Primary hypercoagulable state (HCC) , CVA, old, speech/language deficit , Cerebral hyponatremia INJECT THE CONTENTS OF ONE SYRINGE (0.4 ML) SUBCUTANEOUSLY EVERY 24 HOURS 90 mL 2 09/28/2022 ActiveStart: 09-06-2021 End: 78-56-5524gbexme 0.8 mL by subcutaneous injection twice dailyenoxaparin (LOVENOX) 80 mg/0.8 mL Indications: Primary hypercoagulable state (HCC) Inject 0.8 mL subcutaneously twice daily. 48 mL 5 09/06/2021 10/06/2021 ActiveStart: 04-07-2020 End: 01-10-0916tzyekq 0.4 mL by subcutaneous injection every twenty-four hours enoxaparin (LOVENOX) 40 mg/0.4 mL Indications: Primary hypercoagulable state (HCC) , CVA, old, speech/language deficit , Cerebral hyponatremia Inject 0.4 mL subcutaneously every 24 hours. 36 mL 0 12/30/2021 03/30/2022 Active End: 29-42-5531czvfwl 40 mg by subcutaneous injection in the [...] enoxaparin (LOVENOX) 40 MG/0.4ML injection (1 source)Start: 25-92-8205gyeomykgss (LOVENOX) 40 MG/0.4ML injection Inject 0.4 mLs into the skin daily 16 mL 1 02/20/2020 Activeenoxaparin (Lovenox) 40 MG/0.4ML injection (20 sources)enoxaparin (Lovenox) 40 MG/0.4ML injection 1 (one) time each day at the same time Activefamotidine 40 mg oral tablet (20 sources)Histamine-2 Receptor AntagonistStart: 36-47-0315nrjq 1 tablet by mouth once daily at bedtimePepcid 40 mg Tab 40 mg = 1 tab(s), Oral, Once a day (at bedtime), # 90 tab(s), Refills(s) 4, Pharmacy: [facility], 168, cm, 06/30/24 8:36:00 EST, Height/Length Dosing, 97.2, kg, 06/30/24 8:36:00 EST, Weight Dosing Start Date: 06/30/24 Status: Ordered Quantity: 90.0 Unit: tab(s) Repeat number: 5Start: 11-29-2023 End: 58-55-7596jwck 1 tablet by mouth once dailyfamotidine (PEPCID) 20 mg tablet Take 1 tablet by mouth once daily. To take prior to infusion 1 tablet 11/29/2023 10/28/2024 Discontinued (Discontinued by Patient)Start: 11-29-2023 End: 25-08-8479fbcrikvwvu 20 mg injection (PEPCID)fluconazole 150 mg oral tablet (6 sources)Azole AntifungalStart: 54-92-1638Bdxfowyv 150 mg Tab 150 mg = 1 tab(s), Oral, q7day, # 4 tab(s), Refills(s) 1, Pharmacy: [facility], 168, cm, 06/09/24 14:03:00 EST, Height/Length Dosing, 98.4, kg, 06/19/24 16:19:00 EST, Weight Dosing Start Date: 06/19/24 Status: Ordered Quantity: 4.0 Unit: tab(s) Repeat number: 2 Indication: Candidiasis, unspecifiedfluticasone propionate 0.05 mg/actuat metered dose nasal spray (20 sources)CorticosteroidStart: 11-20-2024 End: 92-44-1686zqri 1 spray(s) nasal route once dailyfluticasone (Flonase) 50 MCG/ACT nasal spray Indications: Sinus headache Administer 1 spray into each nostril Daily Shake gently. Before first use, prime pump. After use, clean tip and replace cap. 16 g 3 11/20/2024 11/20/2025 ActiveStart: 35-96-8070Nsbnecf 0.05 mg/inh [place] 2 spray(s), Nasal, Daily, 16 gram, Refill(s) 11, each nostril, [facility] #[id number], 168, cm, 06/09/24 14:03:00 EST, Height/Length Dosing, 99.1, kg, 06/09/24 14:03:00 EST, Weight Dosing Start Date: 06/09/24 Status: Ordered Quantity: 16.0 Unit: g Repeat number: 12Start: 86-88-6489Cblicms 0.05 mg/inh [place] 2 spray(s), Nasal, Daily, 16 gram, Refill(s) 11, each nostril, [id number], 168, cm, 06/09/24 14:03:00 EST, Height/Length Dosing, 99.1, kg, 06/09/24 14:03:00 EST, Weight Dosing Start Date: 06/09/24 Status: OrderedStart: 26-02-0419Yzsaibq 0.05 mg/inh [place] 2 spray(s), Nasal, Daily, 16 gram, Refill(s) 0, each nostril Start Date: 08/03/23 Status: Orderedisopropyl alcohol 0.7 ml/ml medicated pad (20 sources)Start: 12-31-6632Fkjsqfj Swabs (Alcohol Prep Pad) 70 % pads Indications: Second trimester ([facility]) , 13 weeks gestation of ([facility]) , Multigravida of advanced maternal age in second trimester ([facility]) , Gestational diabetes mellitus (GDM), antepartum, gestational diabetes method of control unspecified ([facility]) , Elevated glucose tolerance test Apply 1 Pad topically Daily Use four times daily to check FSBS. 150 each 3 10/30/2024 Activelevothyroxine sodium 0.025 mg oral tablet (20 sources)l-ThyroxineStart: 69-41-2906jakfobgnrwbas 25 mcg (0.025 mg) Tab 25 mcg = 1 tab(s), Oral, Daily, Dr. Celaya, # 30 tab(s), Refills(s) 0 Start Date: 06/09/24 Status: Ordered Quantity: 30.0 Unit: tab(s) Repeat number: 1Start: 06-02-2024 End: 76-26-3429cgaz 1 tablet by mouth before mealtimelevothyroxine (Synthroid) 50 MCG tablet Indications: History of thyroid disease Take 1 tablet (50 mcg) by mouth in the morning. Take before meals. 30 tablet 11 06/02/2024 06/23/2024 DiscontinuedStart: 02-25-2024 End: 03-25-8376mrud 1 tablet by mouth before mealtimelevothyroxine (Synthroid) 25 MCG tablet Indications: Abnormal TSH Take 1 tablet (25 mcg) by mouth in the morning. Take before meals. 30 tablet 11 06/23/2024 06/23/2025 ActiveStart: 08-24-2021 End: 27-24-2275wwtscsuubzogn (SYNTHROID) 25 mcg tablet Take 25 mcg by mouth. 0 08/24/2021 09/26/2023 Discontinued End: 49-83-8186iphx 3 tablets by mouth once dailylevothyroxine (Synthroid) 25 MCG tablet Take 75 mcg by mouth 1 (one) time each day at the same time05/06/2024 DiscontinuedComment on above:Take 25 mcg by mouth.Lovenox 40 mg/0.4 mL Injection (20 sources)Start: 86-66-5672uykihx 40 mg by subcutaneous injection every twenty-four hoursLovenox 40 mg/0.4 mL Injection 40 mg, SubCutaneous, q24hr, # 7 EA, Refills(s) 0, Blood Thinner Start Date: 04/07/20 Status: Ordered Quantity: 7.0 Unit: EA Repeat number: 1Start: 86-49-9638qtigei 40 mg by subcutaneous injection every twenty-four hoursLovenox 40 mg/0.4 mL Injection 40 mg, SubCutaneous, q24hr, # 7 EA, Refills(s) 0, Blood Thinner Start Date: 04/07/20 Status: Ivuuxxp81 hr metFORMIN hydrochloride 500 mg extended release oral tablet (20 sources)BiguanideStart: 22-87-0962jgmGFDGUO XR (GLUCOPHAGE XR) 500 mg 24 hr tablet Take 500 AM and 1000 mg at night. 90 tablet 4 03/11/2025 ActiveStart: 01-19-2025 End: 91-99-8459lmwd 3 tablets by mouth every twenty-four hours at mealtime metFORMIN XR (Glucophage-XR) 500 MG 24 hr tablet Indications: Gestational diabetes mellitus (GDM), antepartum, gestational diabetes method of control unspecified ([facility]) Take 3 tablets (1,500 mg) by mouth in the evening. Take with meals Do not crush, chew, or split. 90 tablet 3 01/19/2025 ActiveStart: 01-01-2025 End: 54-89-0809jkbLFFEAY XR (GLUCOPHAGE XR) 500 mg 24 hr tablet Take 1500 mg at night. 90 tablet 4 01/01/2025 03/11/2025 DiscontinuedStart: 12-17-2024 End: 28-42-2441iguBHEHCA XR (GLUCOPHAGE XR) 500 mg 24 hr tablet Take 1000 mg at night. 90 tablet 4 12/17/2024 01/01/2025 DiscontinuedStart: 05-13-2024 End: 05-57-0596ujhu 2 tablets by mouth every twenty-four hours at mealtime metFORMIN XR (Glucophage-XR) 500 MG 24 hr tablet Indications: Insulin resistance Take 2 tablets (1,000 mg) by mouth in the evening. Take with meals Do not crush, chew, or split. 60 tablet 11 05/13/2024 06/02/2024 DiscontinuedStart: 11-27-2023 End: 82-57-9282eaqy 1 tablet by mouth once dailymetFORMIN XR (Glucophage-XR) 500 MG 24 hr tablet Indications: Insulin resistance Take 1 tablet (500mg) by mouth 1 (one) time each day at the same time 30 tablet 11 09/18/2024 01/19/2025 DiscontinuedStart: 45-98-1336MpxMEHRQU (Eqv-Glucophage XR) 500 mg oral tablet, extended release 1,000 mg = 2 tab(s), Oral, Daily, Refills(s) 0 Start Date: 10/20/22 Status: Ordered Repeat number: 1Start: 03-26-2022 End: 46-26-9330rqnFMYIFG XR (GLUCOPHAGE XR) 500 mg 24 hr [...] tablet by mouth once daily.polyethylene glycol 3350 67839 mg powder for oral solution (20 sources)Osmotic Laxativepolyethylene glycol (GLYCOLAX) 17 gram packet Take 17 g by mouth in the morning. ActivePolyethylene Glycols (4 sources)polyethylene glycol 3350 (MIRALAX PO) Take by mouth. ActivePRENATAL 19 29 mg iron- 1 mg tablet,chewable (20 sources)Start: 59-33-9560CEHAFJBK 19 29 mg iron- 1 mg tablet,chewable Chew 1 tablet and swallow in the morning. 6 10/31/2018ActiveStart: 71-43-4427TKDLYOGG 19 29 mg iron- 1 mg tablet,chewable Chew 1 tablet and swallow daily. 6 10/31/2018 ActivePrenatal Vit-Fe Fumarate-FA ( PO) (1 source)Start: 28-31-3302Qjyudzrv Vit-Fe Fumarate-FA ( PO) Take 1 tablet by mouth 0 10/31/2018 Activeprogesterone 200 mg oral capsule (20 sources)Progesteronetake 1 capsule by mouth in the morningprogesterone (PROMETRIUM) 200 mg capsule Take 1 capsule (200 mg total) by mouth in the morning. ActiveProgesterone 200 MG suppository (6 sources)Start: 09-18-2024 End: 81-16-4663Bustpjdusrbg 200 MG suppository Indications: History of miscarriage Insert 200 mg into the vagina at bedtime Insert suppository vaginally every night at bedtime until 12 weeks gestation 30 suppository 3 09/18/2024 10/30/2024 Discontinued (Therapy completed)Start: 09-18-2024 End: 82-69-6449Ymwqqshvdszb 200 MG suppository Indications: History of miscarriage Insert 200 mg into the vagina at bedtime Insert suppository vaginally every night at bedtime until 12 weeks gestation 30 suppository 3 09/18/2024 12/17/2024 ActiveStart: 09-01-2024 End: 96-40-5823Ojflbwnfpheg 200 MG suppository Indications: History of miscarriage Insert 200 mg into the vagina at bedtime Insert suppository vaginally every night at bedtime until 12 weeks gestation 30 suppository 2 09/01/2024 11/30/2024 Activeprogesterone vaginal suppository 200 mg (CPD) (4 sources)progesterone vaginal suppository 200 mg (CPD) Use 200 mg vaginally. Unwrap and insert as directed. Activeterconazole 4 mg/ml vaginal cream (3 sources)Azole AntifungalStart: 06-23-2024 End: 59-43-6024zkpzruttrxi (Terazol 7) 0.4 % vaginal cream Indications: Vaginal discharge Insert 1 applicator intothe vagina at bedtime for 7 days 45 g 06/23/2024 06/30/2024 ActiveVentolin HFA 90 mcg/inh Aerosol-Adpt (1 source)Start: 09-07-2024 End: 60-51-4389nhxi 2 puff(s) by inhalation every six hours for wheezingVentolin HFA 90 mcg/inh Aerosol-Adpt 2 puff(s), Inhalation, q6hr for wheezing for 7 day(s), 8 gm, Refill(s) 0, [facility], 167, cm, 09/07/24 10:01:00 EDT, Height/Length Dosing, 96.4, kg, 09/07/24 10:01:00 EDT, Weight Dosing Start Date: 09/07/24 Stop Date: 09/14/24 Status: Ordered Quantity:8.0 Unit: g Repeat number: 1 Indication: Acute upper respiratory infection, unspecifiedVitamin D (20 sources)Start: 08-71-9566Hmqsdhf D 2,000 International_Unit, Oral, qWeek, Refills(s) 0 Start Date: 08/03/23 Status: Ordered Repeat number: 1Start: 09-75-4150Ybexane D 2,000 International_Unit, Oral, qWeek, Refills(s) 0 Start Date: 08/03/23 Status: Ordered Completed/Discontinued Medications MedicationDrug Class(es)DatesSig (Normalized)Sig (Original)aspirin 81 mg chewable tablet (5 sources)Platelet Aggregation Inhibitor, Nonsteroidal Anti-inflammatory Drug End: 34-80-4262awuiwtv 81 MG chewable tablet Chew 81 mg in the morning. 05/06/2024 Discontinued1 ml dexamethasone phosphate 4 mg/ml injection (1 source)CorticosteroidStart: 11-29-2023 End: 35-04-4321khyXONBJzsjjq sodium phosphate 8 mg injection (DECADRON)3 ml insulin glargine 100 unt/ml pen injector (6 sources)Insulin AnalogStart: 12-03-2024 End: 68-05-7393vducwpq glargine (LANTUS SOLOSTAR U-100 INSULIN) 100 unit/mL (3 mL) insulin pen Prime with 2 units then inject 4 units SQ into abd 15 mL 3 12/03/2024 12/17/2024 Discontinued (Allergic response)insulin isophane, human 100 unt/ml injectable suspension (10 sources)Start: 12-26-2024 End: 07-56-8767agdh 8 [IU] by mouth once dailyinsulin NPH (HumuLIN N,NovoLIN N) 100 unit/mL injection Indications: Gestational diabetes mellitus (GDM) in second trimester controlled on oral hypoglycemic drug Inj sbq in abd 8 units nightly 10 mL 6 12/26/2024 02/06/2025 Discontinued (Patient Never Started This Medication)iron sucrose 300 mg in NaCl 0.9% 250 mL (VENOFER) (3 sources)Start: 11-29-2023 End: 09-03-4357wghx sucrose 300 mg in NaCl 0.9% 250 mL (VENOFER)Start: 11-22-2023 End: 56-86-9872xefh sucrose 300 mg in NaCl 0.9% 250 mL (VENOFER)Start: 11-15-2023 End: 01-07-2251rmue sucrose 300 mg in NaCl 0.9% 250 mL (VENOFER)multivitamin (MULTIPLE VITAMINS) tablet (7 sources)take 1 tablet by mouth once dailymultivitamin (MULTIPLE VITAMINS) tablet Take 1 tablet by mouth once daily. 0 ActiveComment on above:Take 1 tablet by mouth once daily.ondansetron 4 mg disintegrating oral tablet (4 sources)Serotonin-3 Receptor AntagonistStart: 04-14-2024 End: 25-98-8935awsn 1 tablet by mouth every six hours for nauseaondansetron ODT (Zofran-ODT) 4 MG disintegrating tablet Indications: Nausea and vomiting in Take 1 tablet (4 mg) by mouth every 6 (six) hours if needed for nausea or vomiting 30 tablet 2 04/14/2024 05/06/2024 DiscontinuedStart: 03-07-2024 End: 19-68-9564fkfs 1 tablet by mouth every six hours as needed for nausea and vomiting and nausea and nauseaondansetron ODT (Zofran-ODT) 4 MG disintegrating tablet Indications: Nausea Take 1 tablet (4 mg) bymouth every 6 (six) hours if needed for nausea or vomiting 30 tablet 2 03/07/2024 04/06/2024 Active polysaccharide iron complex 391 mg oral capsule (20 sources)Start: 03-06-2022 End: 41-07-0017IKU FE 180 mg iron cap Problems Active Problems Problem ClassificationProblemDateDocumented DateEpisodic/ChronicAcute cerebrovascular disease (20 sources)Cerebral infarction; Translations: [Cerebral infarction, unspecified]Onset: 05-16-2019 Resolved: [id number] disorders (20 sources)Anxiety; Translations: [Anxiety disorder, unspecified]Onset: [id number] dysrhythmias (20 sources)Supraventricular tachycardia; Translations: [Supraventricular tachycardia]Onset: [id number]lc and hemorrhagic disorders (20 sources)Antiphospholipid syndrome; Translations: [Hypercoagulability state] Onset: 784807-96-5723UaszmakKiglcxnhmt and other anemia (20 sources)Iron 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; Translations: [Iron deficiency anemia secondary to blood loss (chronic)]Onset: 87-22-4639Qyxdizn Deficiency and other anemia (1 source)Iron deficiency anemia secondary to blood loss (chronic); Translations: [Iron deficiency anemia secondary to blood loss (chronic)]Onset: 80-48-4971MsptuvnMfqanrzj or abnormal glucose tolerance complicating ; childbirth; or the puerperium (20 sources)Gestational diabetes mellitus in , unspecified control; Translations: [Gestational diabetes mellitus in childbirth, unspecified control] Onset: 63-21-6461AqurqdxdTuokwnazo of teeth and jaw (11 sources)Temporomandibular mjytc-ddxj-jqastolfawi syndrome; Translations: [Arthralgia of temporomandibular joint]Onset: [id number] Esophageal disorders (20 sources)Laryngopharyngeal reflux; Translations: [Gastro-esophageal reflux disease without esophagitis]Onset: [id number]; including migraine (2 sources)Sinus headache; Translations: [Sinus headache]55-09-0399YpkxxkpiQblr effects of cerebrovascular disease (20 sources)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; Translations: [Other speechand language deficits following cerebral infarction]Onset: 00-48-9699PnffytqGkfdkxsivx disorders (1 source)Hormone replacement therapy; Translations: [HORMONE REPLACEMENT THERAPY]Onset: 88-05-3034VcfwwfmiGokibcavm disorders (20 sources)Irregular menstruation, unspecified; Translations: [Missed period] Onset: 44-25-8530YxxmuklBqtujalwzcusj mental health disorders (20 sources)Psychogenic hyperventilation; Translations: [Other somatoform disorders]Onset: 138828-91-9535LqvweawMyirryyn sclerosis (1 source)Multiple sclerosis; Translations: [Multiple sclerosis]Onset: 85-76-6528IbjacazIahtojckzvg deficiencies (20 sources)Vitamin D deficiency; Translations: [Vitamin D deficiency, unspecified]Onset: 142973-82-7873FnqqizwIcvuz aftercare (1 source)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; Translations: [OTH [facility] CURRENT DRUG THERAPY]Onset: 48-59-9849GrbnmfdeNkivh aftercare (1 source)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; Translations: [[facility] USE ORAL HYPOGLYCEMIC DX]Onset: 68-01-7838UfohkmguKcrxv aftercare (2 sources)H/O: miscarriage; Translations: [Encounter for other specified aftercare]95-03-4218OgilpyohZkbgn circulatory disease (4 sources)History of cerebrovascular disease; Translations: [Personal history of transient ischemic attack (TIA), and cerebral infarction without residual deficits]Onset: 240887-97-3402OfvdbzymGumdl circulatory disease (3 sources)Personal history of transient ischemic attack (TIA), and cerebral infarction without residual deficits; Translations: [PERS HX TIA AND CI NO RESID DEFICIT]Onset: 21-99-3981GeulylicSojkf circulatory disease (1 source)History of transient ischemic attack; Translations: [Personal history of transient ischemic attack (TIA), and cerebral infarction without residual deficits]23-92-0393YnrhdutyLquce complications of ; puerperium affecting management of mother (20 sources)Anemia in mother complicating childbirth; Translations: [Anemia complicating childbirth]Onset: 670668-90-2797KiczprvHrncu complications of ; puerperium affecting management of mother (1 source)Other diseases of the blood and blood-forming organs and certain disorders involving the immune mechanism complicating childbirth; Translations: [OTH DZ BLD BFO IMMUN COMP CHILDBRTH]Onset: 67-71-6283DrywwnsrRkali complications of ; puerperium affecting management of mother (1 source)Endocrine, nutritional and metabolic diseases complicating childbirth; Translations: [ENDOCRN NUTR MET DZ COMP CHILDBIRTH]Onset: 37-51-1305Ovatudlj Other complications of ; puerperium affecting management of mother (1 source)Streptococcus B carrier state complicating childbirth; Translations: [STREP B QUIROZ STATE COMP CHILDBIRTH]Onset: 28-11-5269ScgrzjgzIqilq complications of (20 sources)Iron deficiency anemia of ; Translations: [Anemia complicating , unspecified trimester]Onset: 69-65-1169SslaumbRotxt complications of (1 source)Endocrine, nutritional and metabolic diseases complicating , third trimester; Translations: [ENDOCRN NUTR MET DZ COMP PG 3RD TRI]Onset: 84-04-3776NgcascnvYskcz complications of (5 sources)Supervision of elderly multigravida, third trimester; Translations: [SUP ELDER MULTIGRAVIDA THIRD TRI]Onset: 77-54-9342OsyrlmnkSvbgl complications of (1 source)Other diseases of the blood and blood-forming organs and certain disorders involving the immune mechanism complicating , third trimester; Translations: [OTH DZ BLD BFO IMMN COMP PG 3RD TRI]Onset: 05-04-2022 EpisodicOther complications of (1 source)Maternal care for excessive growth, third trimester, not applicable or unspecified; Translations: [MAT CARE EXCSS FTL GRTH 3RD TRI UNS] Onset: 76-81-1159IzhzrhtmPnwjh complications of (20 sources)History of with abortive outcome; Translations: [Supervision of with other poorreproductive or obstetric history, second trimester]Onset: 580644-43-1423YryxirrcMqvdh complications of (3 sources)Hypothyroidism in ; Translations: [Endocrine, nutritional and metabolic diseases complicating , second trimester]01-02-2025 EpisodicOther ear and sense organ disorders (20 sources)Otitis externa of right ear; Translations: [Unspecified otitis externa, right ear]Onset: 91-85-0306KsgjhsoCivjf ear and sense organ disorders (7 sources)Otitis -00-8791ZgnlqonDoolk endocrine disorders (20 sources)Hypoglycemia; Translations: [Hypoglycemia, unspecified]Onset: 643520-60-8276CuhupfzJiiei female genital disorders (2 sources)Vaginal bleeding; Translations: [Abnormal uterine and vaginal bleeding, unspecified]65-71-8448HcqwycfQdzgq female genital disorders (4 sources)Vaginal discharge; Translations: [Other specified noninflammatory disorders of vagina]25-79-9749BdixjvtsDcfou hematologic conditions (1 source)H/O: blood disorder; Translations: [Personal history of diseases of the blood and blood-forming organs and certain disorders involving the immune mechanism]Onset: 96-43-0995BhccgxgmOdhox lower respiratory disease (9 sources)Uitzi17-70-0020KslolajaIauxj nervous system disorders (1 source)Idiopathic progressive neuropathy; Translations: [Idiopathic progressive neuropathy]Onset: 39-40-7828CsrctxrMwuvc nervous system disorders (20 sources)Neuropathy; Translations: [Idiopathic progressive neuropathy]Onset: 618003-44-0415JptboxjRpljc nervous system disorders (3 sources)Paresthesia; Translations: [Paresthesia of skin]Onset: 05-16-2019 EpisodicOther nervous system disorders (9 sources)Muscle sumczc28-42-2539LptfigeiBfydr nervous system disorders (6 sources)Facial -27-3139WpnzcjkyEvbae nutritional; endocrine; and metabolic disorders (10 sources)Obese class II; Translations: [Body mass index (BMI) 36.0-36.9, adult]Onset: 18-46-6511SsbwrtvYqkxj nutritional; endocrine; and metabolic disorders (20 sources)Obesity; Translations: [Other obesity]Onset: 679201-91-5252 ChronicOther nutritional; endocrine; and metabolic disorders (20 sources)Morbid obesity; Translations: [Morbid (severe) obesity due to excess calories]Onset: 88-34-9886LedozarQjmpc nutritional; endocrine; and metabolic disorders (3 sources)Hypercalcemia; Translations: [Hypercalcemia]78-62-4579MouajpgHzzqw nutritional; endocrine; and metabolic disorders (20 sources)Body mass index 30+ - obesity; Translations: [Body mass index (BMI) 37.0-37.9, adult]Onset: 078315-05-5322NwfnmjtGmtnm nutritional; endocrine; and metabolic disorders (1 source)Obese class I; Translations: [Body mass index (BMI) 34.0-34.9, adult] Onset: 03-29-0151MgnsqrqEhchf nutritional; endocrine; and metabolic disorders (1 source)H/O: Disorder; Translations: [Personal history of other endocrine, nutritional and metabolic disease]Onset: 45-04-5701QxpkdlyiDwjbt nutritional; endocrine; and metabolic disorders (2 sources)H/O: thyroid disorder; Translations: [Personal history of other endocrine, nutritional and metabolic disease]29-00-6220KeylgnfqUajxg screening for suspected conditions (not mental disorders or infectious disease) (12 sources)Encounter for screening for malignant neoplasm of cervix; Translations: [Encounter for screening for diabetes mellitus]Onset: 10-28-2021 EpisodicOther skin disorders (1 source)Podopompholyx; Translations: [Dyshidrosis [pompholyx]]Onset: 53-72-9756PiavbjqlBjncg upper respiratory disease (20 sources)Allergy to yqrrxf17-99-0642AbzwerpGtxfl upper respiratory disease (1 source)Polyp of nasal sinus; Translations: [Nasal polyp, unspecified]Onset: 33-38-3355OwunzjkeXywij upper respiratory infections (8 sources)Chronic sinusitis; Translations: [Chronic sinusitis, unspecified] Onset: 84-87-2063EupwbjtKfljltjz codes; unclassified (1 source)Sleep disorder; Translations: [Other sleep disorders]Onset: 10-20-2022 ChronicResidual codes; unclassified (20 sources)Obstructive sleep apnea syndrome; Translations: [Obstructive sleep apnea (adult) (pediatric)]Onset: 622287-95-0778AscllwvAdxmiqtf codes; unclassified (8 sources)Patient encounter status; Translations: [Other specified health status]Onset: 00-67-2382QkaxqykxZpqvltay codes; unclassified (1 source)39 weeks gestation of ; Translations: [39 WEEKS GESTATION OF ]Onset: 34-15-0578DcjdrqglVdchfgih codes; unclassified (1 source)Family history of diabetes mellitus; Translations: [FAMILY HISTORY OF DIABETES MELLITUS]Onset: 36-01-3441UcuyyyclOfitppxu codes; unclassified (1 source)Family history of stroke; Translations: [FAMILY HISTORY OF STROKE] Onset: 55-95-6548EslqsvliRkpfzltn codes; unclassified (1 source)38 weeks gestation of ; Translations: [38 WEEKS GESTATION OF ]Onset: 56-13-1555IgjnyocvHvcdyssc codes; unclassified (1 source)37 weeks gestation of ; Translations: [37 WEEKS GESTATION OF ]Onset: 65-94-0869RedjcjccEvwcbxrk codes; unclassified (1 source)35 weeks gestation of ; Translations: [35 WEEKS GESTATION OF ]Onset: 95-20-5474XpozomrmQewiopoy codes; unclassified (1 source)34 weeks gestation of ; Translations: [34 WEEKS GESTATION OF ]Onset: 18-52-2627GzhjvzkyXghxjhgp codes; unclassified (1 source)33 weeks gestation of ; Translations: [33 WEEKS GESTATION OF ]Onset: 15-24-5522BtgmjfpsSxsqgffs codes; unclassified (1 source)32 weeks gestation of ; Translations: [32 WEEKS GESTATION OF ]Onset: 76-88-6250HovmaluhPybgylvl codes; unclassified (1 source)31 weeks gestation of ; Translations: [31 WEEKS GESTATION OF ]Onset: 15-15-4918NaobfhyxTmhotjsr codes; unclassified (20 sources)Sleep jcvptjyn01-37-9398SwyrlouoAkvbmjfx codes; unclassified (1 source)Localized edema; Translations: [Localized edema]Onset: 11-09-2023 EpisodicResidual codes; unclassified (2 sources)Gestation period, 14 weeks; Translations: [14 weeks gestation of ]46-01-6660HrkvbivqBtpzlnhv codes; unclassified (2 sources)Gestation period, 13 weeks; Translations: [13 weeks gestation of ]62-95-0004MzjvkwswBspsaydf codes; unclassified (2 sources)Gestation period, 16 weeks; Translations: [16 weeks gestation of ]11-57-6825MprgybcqQsphaxtv codes; unclassified (2 sources)Gestation period, 19 weeks; Translations: [19 weeks gestation of ]24-40-4702ArmtcgpoQggvrhsn codes; unclassified (3 sources)Gestation period, 22 weeks; Translations: [22 weeks gestation of ]95-48-8400NxwytnwwIoaxdsro codes; unclassified (3 sources)Family history of autism; Translations: [Family history of other mental and behavioral disorders]05-91-1832FpnnufutGcvbhfcs codes; unclassified (2 sources)Gestation period, 23 weeks; Translations: [23 weeks gestation of ]86-03-4327QnqwqlszPfbxkkpb codes; unclassified (2 sources)Gestation period, 25 weeks; Translations: [25 weeks gestation of ]82-28-1347BgfehhyfDeianukf codes; unclassified (1 source)Gestation period, 27 weeks; Translations: [27 weeks gestation of ]96-52-2498JfzsvkcvPejmuhgq codes; unclassified (1 source)22 weeks gestation of ; Translations: [22 weeks gestation of ]Onset: 48-86-4556QavayjdnEcqfogfl codes; unclassified (2 sources)Gestation period, 28 weeks; Translations: [28 weeks gestation of ]34-75-4390UnhnysnePqrnfrkq codes; unclassified (1 source)Gestation period, 29 weeks; Translations: [29 weeks gestation of ]15-01-0992NxrpsxaqMsafdovn codes; unclassified (2 sources)Gestation period, 30 weeks; Translations: [30 weeks gestation of ]92-33-7799FrkzjmzpWjbuiba disorders (20 sources)Hypothyroidism; Translations: [Hypothyroidism, unspecified]Onset: 086452-25-8950ZqnqmeuRpoizpp disorders (20 sources)Disorder of thyroid, unspecified; Translations: [Disorder of thyroid gland]Onset: 878671-91-6642EdtvxzioMldekzopr cerebral ischemia (1 source)Transient cerebral ischemia; Translations: [Transient cerebral ischemic attack, unspecified]Onset: 121129-87-7119PkcoqnuVgyelgtloynd (20 sources)History of ODPO-XoK-541-11-2022Unclassified (20 sources)Inhalation eszket84-83-7829Kvoopjoyhbwd (20 sources)Mga-slhifm88-59gvlism21-92-8169Gzzyepmvpale (1 source)CONTACT W/AND (SUSP) EXPOS COVID-19; Translations: [CONTACT W/AND (SUSP) EXPOS COVID-19]Onset: 79-16-6998Sqzrmdzdspcu (15 sources)Patient encounter arytql38-17-7450Wlnmxylucxld (1 source)MFM consultOnset: 80-96-0598Sohbozjobbjd (1 source)Gestational DiabetesOnset: 35-56-3371Jyddu infection (20 sources)Viral echdkrm77-58-4368Lkgylzbq Past or Other Problems Problem ClassificationProblemDateDocumented DateEpisodic/ChronicAbdominal pain (20 sources)Abdominal pain; Translations: [Pain in pelvis]Onset: 02-01-2019 83-93-7722BtmnzjtcUhmbs bronchitis (20 sources)Acute infective bronchitis; Translations: [Acute bronchitis due to other specified organisms]Onset: 012121-36-1985AytzigsvLpaio posthemorrhagic anemia (20 sources)Acute posthemorrhagic anemia; Translations: [Acute posthemorrhagic anemia]Onset: 413968-96-4634IpnbpbaqZxsbfobz reactions (20 sources)Other allergy status, other than to drugs and biological substances; Translations: [Nsuct-xc-dchmxls vesicular eczema of hands and feet]Onset: 23-61-4739CrdbcmuyWbtotnpqj infection; unspecified site (20 sources)Bacterial infectious disease; Translations: [Other bacterial infections of unspecified site]Onset: 793386-06-6693FkniuywaDqkrxczj of urinary tract (20 sources)History of calculus of kidney; Translations: [Personal history of urinary calculi]Onset: 308314-29-4337VmwbdzrrChumrmg dysrhythmias (20 sources)Palpitations; Translations: [Palpitations]Onset: 08-26-2019 76-63-8451IdmsjzjsJexrpryljf associated with dizziness or vertigo (20 sources)Dizziness; Translations: [Dizziness and giddiness]Onset: 02-05-2019 23-71-1903FqrqfjnhBgcvfcmblq and other anemia (20 sources)Anemia; Translations: [Anemia, unspecified]Onset: 33-49-6262Vbhhgrtr Diabetes mellitus without complication (20 sources)Prediabetes; Translations: [Prediabetes]Onset: 32-00-8425Lrxdxvph Diseases of mouth; excluding dental (20 sources)Xerostomia; Translations: [Dry mouth, unspecified]Onset: 12-22-2022 EpisodicFluid and electrolyte disorders (20 sources)Cerebral hyponatremia; Translations: [Hypo-osmolality and hyponatremia]Onset: 78-03-7419VfmajyuyCjabjnrsuozmggvh hemorrhage (20 sources)Hematochezia; Translations: [Blood-tinged feces]Onset: 06-12-2023 74-08-5305PyptnfnwSxtkrvalqltdf symptoms and ill-defined conditions (20 sources)Genitourinary symptoms; Translations: [Unspecified symptoms and signs involving the genitourinary system]Onset: 15-55-2915NkxfkwzoXfyxtcdw; including migraine (20 sources)Migraine without aura, not refractory ; Translations: [Migraine without aura, not intractable, without status migrainosus]Onset: 09-12-2017 Resolved: 486952-47-1113QcbajagHnvcfkxwxutqx and screening for infectious disease (20 sources)Antibody studies abnormal; Translations: [Raised antibody titer] Onset: 332890-12-0380ZyxvvphdKmwpjbx and fatigue (20 sources)Fatigue; Translations: [Other fatigue]Onset: EpisodicMycoses (20 sources)Candidiasis of vagina Resolved: 188379-02-1221OppnwgnzDthqbfzzxmy deficiencies (20 sources)Vitamin B deficiency; Translations: [Deficiency of other specified B group vitamins]Onset: 428375-11-8914RaesdpzyRD-pyxauul trauma to perineum and vulva (20 sources)First degree perineal tear during delivery - delivered; Translations: [First degree perineal laceration during delivery]Onset: 991483-63-4094DsxzrnqcJufjp aftercare (20 sources)Long-term current use of anticoagulant; 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: [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]Onset: 581330-38-9755WfdytnzaIgjfq aftercare (20 sources)Long-term current use of drug therapy; Translations: [penitentiary (current) use of antithrombotics/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]Onset: EpisodicOther circulatory disease (20 sources)History of cerebrovascular accident; Translations: [Personal history of transient ischemic attack (TIA), and cerebral infarction without residual deficits]Onset: 565318-26-9715XdwdwmmpKaqrkoc on above:reported by pt - related to antiphospholipid syndromeOther circulatory disease (20 sources)Elevated blood-pressure reading without diagnosis of hypertension; Translations: [Elevated blood-pressure reading, without diagnosis of hypertension]Onset: 034158-64-9896AaojokijStyrs circulatory disease (20 sources)Elevated blood pressure; Translations: [Elevated blood-pressure reading, without diagnosis of hypertension]Onset: 263547-57-0343Pmmdouuu Other complications of ; puerperium affecting management of mother (20 sources) problem; Translations: [Unspecified disorders of ]Onset: 825783-22-0958XfrvsayvTemsn complications of ; puerperium affecting management of mother (1 source)Endocrine, nutritional and metabolic disease complicating , childbirth and puerperium; Translations: [Endocrine, nutritional and metabolic diseases complicating childbirth]Onset: 318386-67-8721CfuwnaryRkamp complications of ; puerperium affecting management of mother (1 source)Complication of , childbirth and/or the puerperium; Translations: [Other diseases of the blood and blood-forming organs and certain disorders involving the immune mechanism complicating childbirth]Onset: 837604-51-1391NeigpderTxyfl complications of ; puerperium affecting management of mother (20 sources) hemorrhage; Translations: [Other immediate hemorrhage]Onset: 255341-02-9659UuupdaeuBgxaj complications of (1 source)Vomiting of ; Translations: [Vomiting of , unspecified]Onset: 738827-33-1614KbxoonqhIernw complications of (20 sources)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; Translations: [Maternal care for (suspected) chromosomal abnormality in fetus, not applicable or unspecified]Onset: 429616-69-4321CumeebinYzvxn complications of (4 sources)Other specified related conditions, third trimester; Translations: [OTH SPEC PREG RELATEDCOND 3RD TRI]Onset: 92-02-7057JhomlnlwGmrye complications of (20 sources)Antiphospholipid syndrome; Translations: [Other diseases of the blood and blood-forming organs and certain disorders involving the immune mechanism complicating , unspecified trimester]Onset: 07-07-2019 80-47-1560CrglvbnyMbmob complications of (20 sources)Multigravida of advanced maternal age; Translations: [Supervision of elderly multigravida, second trimester]Onset: 867820-45-8983EerxudybYwbcc complications of (2 sources)Other diseases of the blood and blood-forming organs and certain disorders involving the immune mechanism complicating , unspecified trimester; Translations: [Other diseases of the blood andblood-forming organs and certain disorders involving the immune mechanism complicating , un specified trimester]Onset: 91-43-6656VwkxdqwbCvfxm complications of (1 source)Supervision of elderly multigravida, second trimester; Translations: [Supervision of elderly multigravida, second trimester]Onset: 25-11-8671Bhkwbvnl Other ear and sense organ disorders (20 sources)Referred otalgia of right ear; Translations: [Otalgia, right ear] Onset: 193670-96-6780IruxhtqwLwavk female genital disorders (20 sources)Noninflammatory disorder of the vagina; Translations: [Other specified noninflammatory disorders ofvagina]Onset: 259006-31-8253Gyacfaxl Other female genital disorders (20 sources)Disorder of female reproductive system; Translations: [Unspecified condition associated with femalegenital organs and menstrual cycle]Onset: 638717-16-4282UlweecmeMttyt female genital disorders (1 source)Other specified noninflammatory disorders of vagina; Translations: [OTH SPEC NONINFLAMMATORY D/O VAGINA]Onset: 15-87-1357RoolzvgcJzdgj female genital disorders (14 sources)Pelvic and perineal pain; Translations: [Pelvic and perineal pain] Onset: 314623-28-8060QudpdxgeJfaes hematologic conditions (20 sources)H/O: anemia - iron deficient; Translations: [Personal history of diseases of the blood and blood-forming organs and certain disorders involving the immune mechanism]Onset: 851728-84-6119QdgthnarCrbwy infections; including parasitic (20 sources)Personal history of other infectious and parasitic diseases; Translations: [History of COVID-19]Onset: 598683-99-3825SgoejlddPkmnd inflammatory condition of skin (1 source)Itching of skin; Translations: [Pruritus, unspecified]Onset: 182780-38-7466WpjnrsfyCkxwf inflammatory condition of skin (20 sources)Pruritus, unspecified; Translations: [Unspecified pruritic disorder] Onset: 981509-11-0355HclvoqjuCqxqj injuries and conditions due to external causes (20 sources)Inhalation injury; Translations: [Injury, unspecified, initial encounter]Onset: 100721-26-3157WpxmujkzBmets lower respiratory disease (20 sources)Dyspnea; Translations: [Dyspnea, unspecified]Onset: 06-12-2023 89-17-9916XuvrrogfHiaqn lower respiratory disease (20 sources)H/O: asthma; Translations: [Personal history of other diseases of the respiratory system]Onset: 628368-92-7243XrejkwjcQykgd lower respiratory disease (20 sources)Snoring; Translations: [Snoring]Onset: 46-09-3047WkzamntzJlomr nervous system disorders (20 sources)Muscle fasciculation; Translations: [Fasciculation]Onset: 08-19-2021 EpisodicOther nervous system disorders (20 sources)Paresthesia of lower extremity; Translations: [Paresthesia of skin] Onset: 483554-71-9663DwucciyvCcjyf nervous system disorders (20 sources)Acute postoperative pain; Translations: [Other acute postprocedural pain]Onset: 979922-64-3973AuyjaewdEkyfl non-traumatic joint disorders (20 sources)Joint pain; Translations: [Pain in unspecified joint]Onset: 361797-71-9960FiozwqhkQkxwr nutritional; endocrine; and metabolic disorders (20 sources)H/O: hypothyroidism; Translations: [Personal history of other endocrine, nutritional and metabolic disease]Onset: 996197-72-7510Vfndnzjf Other and delivery including normal (20 sources)Normal ; Translations: [Encounter for supervision of normal , unspecified, first trimester]Onset: 755784-27-8524Bptvvgnk Other skin disorders (20 sources)Cqsar-mf-oxkxbmb vesicular eczema of hands and feet; Translations: [Dyshidrosis [pompholyx]]Onset: 594550-74-1104ArxtjmzlCwqxa upper respiratory disease (20 sources)Deviated nasal septum; Translations: [Deviated nasal septum]Onset: 80-50-1299XozbpmetTfjjg upper respiratory disease (20 sources)Polyp of nasal cavity and/or nasal sinus; Translations: [Nasal polyp, unspecified]Onset: 759095-83-5442NdsjvqzrPfvxa upper respiratory infections (20 sources)Acute upper respiratory infection Resolved: 535318-32-7859ZvctunthWlftva media and related conditions (20 sources)Dysfunction of eustachian tube; Translations: [Disorder of right Eustachian tube]Onset: 390811-89-1926GwjpnpzyWrdwrsr cyst (20 sources)Cyst of ovary; Translations: [Cyst of right ovary]Onset: 02-06-2019 48-70-9045TmxbnpadAxlreava codes; unclassified (20 sources)Family history of female genital tract disorder Resolved: 631218-76-5063TbgqsrkxYdfalsrv codes; unclassified (20 sources)FH: Anemia Resolved: 950933-54-5934TdoubdouZjlttowm codes; unclassified (20 sources)First trimester ; Translations: [Less than 8 weeks gestation of ]Onset: 266392-08-5041YilvvkjjUxedyslp codes; unclassified (20 sources)Gestation period, 32 weeks; Translations: [32 weeks gestation of ]Onset: 647825-86-2814JysblvbfAmxsxfbg codes; unclassified (1 source)Gestation period, 33 weeks; Translations: [33 weeks gestation of ]Onset: 687246-81-5230XszdqemcOufsblan codes; unclassified (1 source)Gestation period, 34 weeks; Translations: [34 weeks gestation of ]Onset: 793170-05-0485RpyjgftkFrgekaac codes; unclassified (1 source)Gestation period, 35 weeks; Translations: [35 weeks gestation of ]Onset: 351709-67-1948VloszopkLgriwyhk codes; unclassified (1 source)Gestation period, 36 weeks; Translations: [36 weeks gestation of ]Onset: 212237-88-1843XpgkjwdxZfseaurl codes; unclassified (1 source)Gestation period, 37 weeks; Translations: [37 weeks gestation of ]Onset: 591363-69-0249UzkxuamzFmbkoyeo codes; unclassified (1 source)Gestation period, 38 weeks; Translations: [38 weeks gestation of ]Onset: 411756-92-9153LvankjlsRsybbzmy codes; unclassified (1 source)Gestation period, 39 weeks; Translations: [39 weeks gestation of ]Onset: 116500-60-5708GmdmdouyMalpqxop codes; unclassified (20 sources)Other general symptoms and signs; Translations: [Other general symptoms]Onset: 447976-06-2870ZiwvjvahWcuwrgmc codes; unclassified (1 source)Unspecified blood type, Rh negative; Translations: [UNSPECIFIED BLOOD TYPE RH NEGATIVE]Onset: 84-82-5776LxcpmdfzDwpwgyaq codes; unclassified (1 source)28 weeks gestation of ; Translations: [28 WEEKS GESTATION OF ]Onset: 84-17-8338XgksgpnhZhoyukjl codes; unclassified (20 sources)Intolerant of cold; Translations: [Other general symptoms and signs] Onset: 225807-50-8839HbhvczxhUaqazkek codes; unclassified (20 sources)Non-smoker; Translations: [Other specified health status]Onset: 271352-29-4066ZnojvtwpRlaolxrf codes; unclassified (20 sources)Swelling of salivary gland; Translations: [Localized edema]Onset: 605618-64-8251UhhrhezpKonirvjqkjg; intervertebral disc disorders; other back problems (20 sources)Neck pain; Translations: [Cervicalgia]Onset: EpisodicSpontaneous (20 sources)Miscarriage Resolved: 992217-49-1429KwiekzumJbpnuye (20 sources)Syncope and collapse; Translations: [Syncope and collapse]Onset: 049842-95-5884NkjqwrmrPwlfugtptkle (20 sources)PregnancyOnset: 02-20-2007 Resolved: 923990-22-4176Pdoykdunkcpo (20 sources)Suspected disease caused by 7201-mNkY46-55qMeD84-03-8412Vxkxcljezpjg (1 source)Exposure to 2019 novel coronavirus; Translations: [Contact with and (suspected) exposure to COVID19]Urinary tract infections (20 sources)Infective urethritis; Translations: [Other urethritis]Onset: 72-14-6631Edqoniiu Results Test NameValueInterpretationReference RangeFacilityUS OB BPP W NON-STRESS on 17-01[place]4050[place] [address] Ultrasound Report Signed Patient: SANNA RENDON MR#: [id number] : 1985 Acct:[id number] Age/Sex: 39 / F ADM Date: 03/05/25 Loc: US Attending Dr: Wilton Herrmann D.O. Ordering Physician: Wilton Herrmann D.O. Date of Service: 03/05/25 Procedure(s): US OB BPP w non-stress Accession Number(s): [id number] cc: Wilton Herrmann D.O.; Physician,Non-Staff M.DLazara The [place] [id number] Patient Name: SANNA RENDON MRN: [facility]:[id number] date: 1985 Sex: F Assigned Patient Location: [facility] Current Patient Location: Accession/Order Number: [id number] Exam Date: 03/05/2025 19:15 Report Date: 03/06/2025 [...] Pisano M.D. 03/06/2025 8:10 AM Dictation Location: [place] [address] Electronically authenticated by: [id number] Y Date: 03/06/2025 08:10 Dictated By: Pamela Pisano M.D. Signed By: 03/06/2513 DD/ 9 TD/TT: Nurses Supervisor:ELVERadiology, Radiologist, - 03/06/2025 [place] [address] Ultrasound Report Signed Patient: SANNA RENDON MR#: [id number] : 1985 Acct:[id number] Age/Sex: 39 / F ADM Date: 03/05/25 Loc: US Attending Dr: Wilton Herrmann D.O. Ordering Physician: Wilton Herrmann D.O. Date of Service: 03/05/25 Procedure(s): US OB BPP w non-stress Accession Number(s): [id number] cc: Wilton Herrmann D.O.; Physician,Non-Staff Tam[place] [address] Patient Name: SANNA RENDON MRN: [facility]:[id number] date: 1985 Sex: F Assigned Patient Location: [facility] Current Patient Location: Accession/Order Number: [id number] Exam Date: 03/05/2025 19:15 Report Date: 03/06/2025 [...] Pisano M.D. 03/06/2025 8:10 AM Dictation Location: [place] [address] Electronically authenticated by: [id number] Y Date: 03/06/2025 08:10 Dictated By: Pamela Pisano M.D. Signed By: 03/06/25812 DD/ 9 TD/TT: Nurses Supervisor: SHILOH HealthcareRadiology Study observation (narrative)[facility] HealthcareUS OB BPP W NON-STRESSOrdered By: Radiologist Radiology on 34-92-1721NCWPParkland Health Center Work Phone: [phone]([place])D[address] [facility] 177095-wdzqdynbxfidlv D3 [Mass/Vol]54.6 ng/yOYegfvw08.0-80.0[facility] on above: Order Comment: Specimen Type: BLOOD SPECIMENOrdering Facility: [facility] Address:[address] [place], [place] [address]Performed By: #### 1989-3 ####[facility] LABCLIA [id number] [address] Auto Differential panel (Bld)on 03-02-2025 Basophils (Bld) [#/Vol]0.03 10*3/uLNormal<0.11CMercy Memorial HospitalComment on above:Order Comment: Specimen Type: BLOOD SPECIMENOrdering Facility: [facility] Address:[address] [place] [address] Performed By: #### 04011-4 ####[facility] LABCLIA [id number] [place], [place] [address]Ezlzgpczm/100 WBC (Bld)0.3 % NormalMercy Health Fairfield Hospital on above:Order Comment: Specimen Type: BLOOD SPECIMENOrdering Facility: [facility] Address:[address] [place], [place] [address]Performed By: #### 83685-2 ####[facility] LABCLIA [id number] [place] [address] Differential cell count method Nom (Bld)AutoNormalCMercy Memorial Hospital Comment on above:Order Comment: Specimen Type: BLOOD SPECIMENOrdering Facility: [facility] Address:[address] [place] [address] Performed By: #### 51332-4 ####[facility] LABCLIA [id number] [place], [place] [address]Jrjmdlwqbnw (Bld) [#/Vol]0.06 10*3/uLNormal<0.46[facility] on above:Order Comment: Specimen Type: BLOOD SPECIMENOrdering Facility: [facility] Address:[address] [place], [place] [address]Performed By: #### 79860-9 ####[facility] LABCLIA [id number] [place], [place] [address]Xrbudvrpzva/100 WBC (Bld)0.7 %NormalMercy Health Fairfield Hospital on above:Order Comment: Specimen Type: BLOOD SPECIMENOrdering Facility: [facility] Address:[address] [place], [place] [address]Performed By: #### 11585-8 ####[facility] LABCLIA [id number] [place], [place] [address]Zieobospqhm distribution width (RBC) [Ratio]13.3 %Xfxcex59.5-15.0[facility] on above: Order Comment: Specimen Type: BLOOD SPECIMENOrdering Facility: [facility] Address:[address] [place], [place] [address]Performed By: #### 73774- 8 ####[facility] LABIA [id number] [place], [place] [address]Jiggjqadvd (Bld) [Volume fraction]33.0 %Low36.0-46.0 [facility] on above:Order Comment: Specimen Type: BLOOD SPECIMENOrdering Facility: [facility] Address:[address] [place], [place] [address]Performed By: #### 34165-3 ####[facility] LABIA [id number] [place], [place] [address]Mxvvoetoiu (Bld) [Mass/Vol]11.6 g/zWFusedj89.5-15.5CNorwalk Memorial Hospital on above: Order Comment: Specimen Type: BLOOD SPECIMENOrdering Facility: [facility] Address:[address] [place], [place] [address]Performed By: #### 38146- 8 ####[facility] LABCLIA [id number] [place], [place] [address]Mqvsayuv granulocytes (Bld) [#/Vol]0.04 10*3/uLNormal <0.10[facility] on above:Order Comment: Specimen Type: BLOOD SPECIMENOrdering Facility: [facility] Address:[address] [place], [place] [address]Performed By: #### 50510-6 ####[facility] LABCLIA [id number] [place], [place] [address]Mkegoazp granulocytes/100 WBC (Bld)0.5 %NormalMercy Health Fairfield Hospital on above: Order Comment: Specimen Type: BLOOD SPECIMENOrdering Facility: [facility] Address:[address] [place], [place] [address]Performed By: #### 71095- 8 ####[facility] LABCLIA [id number] [place], [place] [address]Rasnisvesej (Bld) [#/Vol]2.31 10*3/uLNormal1.00-4.00 [facility] on above:Order Comment: Specimen Type: BLOOD SPECIMENOrdering Facility: [facility] Address:[address] [place], [place] [address]Performed By: #### 79198-7 ####[facility] LABCLIA [id number] [place], [place] [address]Xiztbxxzwtv/100 WBC (Bld)26.7 %NormalMercy Health Fairfield Hospital on above:Order Comment: Specimen Type: BLOOD SPECIMENOrdering Facility: [facility] Address:[address] [place], [place] [address]Performed By: #### 87391-1 ####[facility] LABCLIA [id number] [place], [place] [address]DIA (RBC) [Entitic mass]31.3 raPznlpd13.0-34.0[facility] on above:Order Comment: Specimen Type: BLOOD SPECIMENOrdering Facility: [facility] Address:[address] [place], [place] [address]Performed By: #### 78928-6 ####[facility] LABCLIA [id number] [place], [place] [address]SSWA (RBC) [Mass/Vol]35.2 g/zSLovooj47.5-36.0[facility] on above: Order Comment: Specimen Type: BLOOD SPECIMENOrdering Facility: [facility] Address:[address] [place], [place] [address]Performed By: #### 63528- 8 ####[facility] LABCLIA [id number] [place], [place] [address]DCH (RBC) [Entitic vol]88.9 wUKvjfcy28.0-100.0[facility] on above:Order Comment: Specimen Type: BLOOD SPECIMENOrdering Facility: [facility] Address:[address] [place], [place] [address]Performed By: #### 42484-5 ####[facility] LABIA [id number] [place], [place] [address]Esrvogryc (Bld) [#/Vol]0.63 10*3/uLNormal<0.87[facility] on above:Order Comment: Specimen Type: BLOOD SPECIMENOrdering Facility: [facility] Address:[address] [place], [place] [address]Performed By: #### 39660- 8 ####[facility] LABCLIA [id number] [place], [place] [address]Wbgobhznp/100 WBC (Bld)7.3 %NormalMercy Health Fairfield Hospital on above:Order Comment: Specimen Type: BLOOD SPECIMENOrdering Facility: [facility] Address:[address] [place], [place] [address]Performed By: #### 66822-2 ####[facility] LABCLIA [id number] [place], [place] [address]Ydqtrihutps (Bld) [#/Vol]5.57 10*3/uLNormal1.45-7.50[facility] on above:Order Comment: Specimen Type: BLOOD SPECIMENOrdering Facility: [facility] Address:[address] [place], [place] [address]Performed By: #### 91152-5 ####[facility] LABCLIA [id number] [place], [place] [address]Owfzsxrcokp/100 WBC (Bld)64.5 %NormalMercy Health Fairfield Hospital on above:Order Comment: Specimen Type: BLOOD SPECIMENOrdering Facility: [facility] Address:[address] [place], [place] [address]Performed By: #### 49738-0 ####[facility] LABCLIA [id number] [place], [place] [address]Mxqrzmvka RBC (Bld) [#/Vol] 10*3/uLNormal<0.01[facility] on above:Order Comment: Specimen Type: BLOOD SPECIMENOrdering Facility: [facility] Address:[address] [place], [place] [address]Performed By: #### 25164-0 ####[facility] LABCLIA [id number] [place], [place] [address]Lhtjfxjst RBC/100 WBC (Bld) [Ratio]0.0 /100 WBCNormal [facility] on above:Order Comment: Specimen Type: BLOOD SPECIMENOrdering Facility: [facility] Address:[address] [place], [place] [address]Performed By: #### 16098-0 ####[facility] LABIA [id number] [place], [place] [address]Sxmifknz mean volume (Bld) [Entitic vol]9.4 fLNormal9.0-12.7CNorwalk Memorial Hospital on above:Order Comment: Specimen Type: BLOOD SPECIMENOrdering Facility: [facility] Address:[address] [place] [address] Performed By: #### 64052-5 ####[facility] LABCLIA [id number] [place], [place] [address]Vwzkodslk (Bld) [#/Vol]257 10*3/oSRwrrrv119-771GfagdkwojMercy Health Fairfield Hospital on above:Order Comment: Specimen Type: BLOOD SPECIMENOrdering Facility: [facility] Address:[address] [place], [place] [address]Performed By: #### 87292-9 ####[facility] LABIA [id number] [place], [place] [address]XLH (Bld) [#/Vol]3.71 10*6/uLLow3.90-5.20[facility] on above:Order Comment: Specimen Type: BLOOD SPECIMENOrdering Facility: [facility] Address:[address] [place], [place] [address]Performed By: #### 99579-5 ####[facility]ENTERIA [id number] [place], [place] [address]TSS (Bld) [#/Vol]8.64 10*3/uL Normal3.70-11.00[facility] on above:Order Comment: Specimen Type: BLOOD SPECIMENOrdering Facility: [facility] Address:[address] [place], [place] [address]Performed By: #### 55840-2 ####[facility] LABIA [id number] [place], [place] [address]DOLWGThd 60-03-7257JFWEIFUubiv (SP) Office (HEMASA) SANNA RENDON ([id number]) 1985 F Date Time Provider Department 03/02/25 11:30 AM KATHERINE NEGRETE During your visit today, we recorded the following information about you: Temperature Pulse Respiration Blood pressure 97.2 degrees 73/minute 16/minute 133/79 Weight 97.2 kg Katherine Negrete APRN.CNP 03/02/2025 8:18 PM Signed NAME: Sanna Rendon CLINIC NO.: [id number] DATE OF SERVICE: March 02, 2025 (Penelope) [...] later in 2018. These were found in [place], [place]. 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 and patient increased Lovenox to 40 mg [...] mg/dL and postpra (more content not included)... NormalOhioHealth Arthur G.H. Bing, MD, Cancer Centerprehensive metabolic 2000 panelon 03-02-2025 Albumin [Mass/Vol]4.1 g/dLNormal3.9-4.9CNorwalk Memorial Hospital on above:Order Comment: Specimen Type: BLOOD SPECIMENOrdering Facility: [facility] Address:[address] [place], [place] [address]Performed By: #### 25192-5 ####[facility] LABCLIA [id number] [place], [place] [address]YOF [Catalytic activity/Vol]64 U/VBpeksk60-661 [facility] on above:Order Comment: Specimen Type: BLOOD SPECIMENOrdering Facility: [facility] Address:[address] [place], [place] [address]Performed By: #### 93316-8 ####[facility] LABCLIA [id number] [place], [place] [address]YTZ [Catalytic activity/Vol]10 U/LNormal7-38[facility] on above:Order Comment: Specimen Type: BLOOD SPECIMENOrdering Facility: [facility] Address:[address] [place], [place] [address]Performed By: #### 73375- 8 ####[facility] LABCLIA [id number] [place], [place] [address]Lgjjo gap [Moles/Vol]13 mmol/LNormal8-15[facility] on above:Order Comment: Specimen Type: BLOOD SPECIMENOrdering Facility: [facility] Address:[address] [place], [place] [address]Performed By: #### 07203-0 ####[facility] LABCLIA [id number] [place], [place] [address]KBG [Catalytic activity/Vol]12 U/ULbf20-81LxeawguncMercy Health Fairfield Hospital on above:Order Comment: Specimen Type: BLOOD SPECIMENOrdering Facility: [facility] Address:[address] [place], [place] [address]Performed By: #### 43447-6 ####[facility] LABCLIA [id number] [place] [address] Bilirubin [Mass/Vol]0.2 mg/dLNormal0.2-1.3CNorwalk Memorial Hospital on above:Order Comment: Specimen Type: BLOOD SPECIMENOrdering Facility: [facility] Address:[address] [place], [place] [address]Performed By: #### 44882-2 ####[facility] LABCLIA [id number] [place], [place] [address]Spjtybb [Mass/Vol]10.3 mg/dLHigh8.5-10.2CNorwalk Memorial Hospital on above:Order Comment: Specimen Type: BLOOD SPECIMENOrdering Facility: [facility] Address:[address] [place], [place] [address]Performed By: #### 43308-6 ####[facility] LABCLIA [id number] [place], [place] [address]Iaimswtn [Moles/Vol]97 mmol/SFrz18-190IdljwbvclMercy Health Fairfield Hospital on above:Order Comment: Specimen Type: BLOOD SPECIMENOrdering Facility: [facility] Address:[address] [place], [place] [address]Performed By: #### 10717- 8 ####[facility] LABCLIA [id number] [facility] [place] [place], [place] [address]LC3 [Moles/Vol]21 mmol/KAkp03-98PdnpwchrtMercy Health Fairfield Hospital on above:Order Comment: Specimen Type: BLOOD SPECIMENOrdering Facility: [facility] Address:[address] [place], [place] [address]Performed By: #### 99167-5 ####[facility] LABCLIA [id number] [place], [place] [address]Kizqdeooti [Mass/Vol]0.54 mg/dL Low0.58-0.96[facility] on above:Order Comment: Specimen Type: BLOOD SPECIMENOrdering Facility: [facility] Address:[address] [place], [place] [address]Performed By: #### 33807-2 ####[facility] LABCLIA [id number] [place] [address] eGFRcr SerPlBld CKD-EPI 6740091 mL/min/1.73m???Normal>=60[facility] on above:Order Comment: Specimen Type: BLOOD SPECIMENOrdering Facility: [facility] Address:[address] [place], [place] [address]Result Comment: Estimated Glomerular Filtration Rate (eGFR) is [...] accurately reflect actual GFR. Performed By: #### 51873-8 ####[facility] LABIA [id number] [place], [place] [address]Bkiyfcs [Mass/Vol]71 mg/dLLow 74-99[facility] on above:Order Comment: Specimen Type: BLOOD SPECIMENOrdering Facility: [facility] Address:[address] [place], [place] [address]Result Comment: The [place] Diabetes Association (ADA) provides guidance for cutoff [...] Standards of Medical Care in Diabetes 2016, [place] [employer] Association. Diabetes Care. 2016.39(Suppl 1).Performed By: #### 79196-2 ####[facility] LABCLIA [id number] [place], [place] [address]Gsszsvflv [Moles/Vol]3.9 mmol/LNormal3.7-5.1CNorwalk Memorial Hospital on above:Order Comment: Specimen Type: BLOOD SPECIMENOrdering Facility: [facility] Address:[address] [place], [place] [address]Performed By: #### 58181-6 ####[facility] LABCLIA [id number] [place], [place] [address]Sgaoagg [Mass/Vol]7.2 g/dLNormal6.3-8.0[facility] on above:Order Comment: Specimen Type: BLOOD SPECIMENOrdering Facility: [facility] Address:[address] [place], [place] [address]Performed By: #### 32147- 8 ####[facility] LABCLIA [id number] [place], [place] [address]Nhtpuz [Moles/Vol]131 mmol/MRox547-532KlmjalwgiMercy Health Fairfield Hospital on above:Order Comment: Specimen Type: BLOOD SPECIMENOrdering Facility: [facility] Address:[address] [place], [place] [address]Performed By: #### 52067-0 ####[facility] LABCLIA [id number] [place], [place] [address]Agmt nitrogen [Mass/Vol]9 mg/dL Normal7-21[facility] on above:Order Comment: Specimen Type: BLOOD SPECIMENOrdering Facility: [facility] Address:[address] [place], [place] [address]EMILY [place], [place] [address]Performed By: #### 56542-6 ####[facility] LABCLIA [id number] [place] [address] US OB BPP W NON-STRESSon 51-23-1318[place]wt[place] [address] Ultrasound Report Signed Patient: SANNA RENDON MR#: [id number] : 1985 Acct:[id number] Age/Sex: 39 / F ADM Date: 02/26/25 Loc: US Attending Dr: Wilton Herrmann D.O. Ordering Physician: Wilton Herrmann D.O. Date of Service: 02/26/25 Procedure(s): US OB BPP w non-stress Accession Number(s): [id number] cc: Wilton Herrmann D.O.; Physician,Non-Staff M.DLazara The [place] [address] Patient Name: SANNA RENDON MRN: [id number] date: 1985 Sex: F Assigned Patient Location: US Current Patient Location: Accession/Order Number: [id number] Exam Date: 02/26/2025 19:42 Report Date: 02/27/2025 [...] Pisano M.D. 02/27/2025 10:53 AM Dictation Location: [place] [address] Electronically authenticated by: [id number] Y Date: 02/27/2025 10:53 Dictated By: Pamela Pisano M.D. Signed By: 02/27/25 1056 DD/ 1053 TD/TT: Nurses Supervisor:MANUELHRadiology, Radiologist, - 02/27/2025 [place] [address] Ultrasound Report Signed Patient: SANNA RENDON MR#: [id number] : 1985 Acct:[id number] Age/Sex: 39 / F ADM Date: 02/26/25 Loc: US Attending Dr: Wilton Herrmann D.O. Ordering Physician: Wilton Herrmann D.O. Date of Service: 02/26/25 Procedure(s): US OB BPP w non-stress Accession Number(s): [id number] cc: Wilton Herrmann D.O.; Physician,Non-Staff Tamia The [address] [id number] Patient Name: SANNA RENDON MRN: [id number] date: 1985 Sex: F Assigned Patient Location: Current Patient Location: Accession/Order Number: [id number] Exam Date: 02/26/2025 19:42 Report Date: 02/27/2025 [...] Pisano M.D. 02/27/2025 10:53 AM Dictation Location: [place] [address] Electronically authenticated by: [id number] Y Date: 02/27/2025 10:53 Dictated By: Pamela Pisano M.D. Signed By: 02/27/25 1056 DD/ 1053 TD/TT: Nurses Supervisor: [facility] HealthcareRadiology Study observation (narrative)[facility] HealthcareUS OB BPP W NON-STRESSOrdered By: Radiologist Radiology on 94-87-0595QYUCParkland Health Center Work Phone: Urinalysis macro (dipstick) panel (U)on [...] 1.03[facility] Urobilinogen, UA0.20.2 - 12 mg/dLNOMissouri Baptist Medical CenterNOMissouri Baptist Medical CenterNo Panel InformationOrdered By: Radiologist Radiology on 66-19-1795EJELParkland Health Center Work Phone: No Panel Informationon 84-79-6696Lbydhczls Study observation (narrative)SHILOH BrowningUS OB BPP W NON-STRESSon 02-20-2025 [place] [address] Ultrasound Report Signed Patient: SANNA RENDON MR#: [id number] : 1985 Acct:[id number] Age/Sex: 39 / F ADM Date: 02/19/25 Loc: US Attending Dr: Wilton Herrmann D.O. Ordering Physician: Wilton Herrmann D.O. Date of Service: 02/19/25 Procedure(s): US OB BPP w non-stress Accession Number(s): [id number] cc: Wilton Herrmann D.O.; Physician,Non-Staff M.DLazara The [place] [id number] Patient Name: SANNA RENDON MRN: [id number] date: 1985 Sex: F Assigned Patient Location: LAB Current Patient Location: Accession/Order Number: [id number] Exam Date: 02/19/2025 19:47 Report Date: 02/20/2025 [...] Pisano M.D. 02/20/2025 8:37 AM Dictation Location: [place] [address] Electronically authenticated by: [id number] Y Date: 02/20/2025 08:37 Dictated By: Pamela Pisano M.D. Signed By: 02/20/25 0840 DD/ 0837 TD/TT: Nurses Supervisor:TBHRadiology, Radiologist, - 02/20/2025 [place] [address] Ultrasound Report Signed Patient: SANNA RENDON MR#: [id number] : 1985 Acct:[id number] Age/Sex: 39 / F ADM Date: 02/19/25 Loc: US Attending Dr: Wilton Herrmann D.O. Ordering Physician: Wilton Herrmann D.O. Date of Service: 02/19/25 Procedure(s): US OB BPP w non-stress Accession Number(s): [id number] cc: Wilton Herrmann D.O.; Physician,Non-Staff Tamia [facility] [place] [id number] Patient Name: SANNA RENDON MRN: [facility]:[id number] date: 1985 Sex: F Assigned Patient Location: LAB Current Patient Location: Accession/Order Number: [id number] Exam Date: 02/19/2025 19:47 Report Date: 02/20/2025 [...] Pisano M.D. 02/20/2025 8:37 AM Dictation Location: [place] [address] Electronically authenticated by: [id number] Y Date: 02/20/2025 08:37 Dictated By: Pamela Pisano M.D. Signed By: 02/20/25 0840 DD/ 0837 TD/TT: Nurses Supervisor: SHILOH Ibanez OB GROWTHon 18-07-5282[place] [address] Ultrasound Report Signed Patient: SANNA RENDON MR#: [id number] : 1985 Acct:[id number] Age/Sex: 39 / F ADM Date: 02/19/25 Loc: US Attending Dr: Wilton Herrmann D.O. Ordering Physician: Wilton Herrmann D.O. Date of Service: 02/19/25 Procedure(s): US OB growth Accession Number(s): [id number] cc: Wilton Herrmann D.O.; Physician,Non-Staff M.Ashvin The [place] [id number] Patient Name: SANNA RENDON MRN: [id number] date: 1985 Sex: F Assigned Patient Location: LAB Current Patient Location: Accession/Order Number: [id number] Exam Date: 02/19/2025 19:47 Report Date: 02/20/2025 [...] Pisano M.D. 02/20/2025 8:37 AM Dictation Location: [place] [address] Electronically authenticated by: [id number] Y Date: 02/20/2025 08:37 Dictated By: Pamela Pisano M.D. Signed By: 02/20/25839 DD/ 6 TD/TT: Nurses Supervisor:TBHRadiology, Radiologist, - 02/20/2025 [place] [address] Ultrasound Report Signed Patient: SANNA RENDON MR#: [id number] : 1985 Acct:[id number] Age/Sex: 39 / F ADM Date: 02/19/25 Loc: US Attending Dr: Wilton Herrmann D.O. Ordering Physician: Wilton Herrmann D.O. Date of Service: 02/19/25 Procedure(s): US OB growth Accession Number(s): [id number] cc: Wilton Herrmann D.O.; Physician,Non-Staff [place] [facility] [place] [id number] Patient Name: SANNA RENDON MRN: [facility]:[id number] date: 1985 Sex: F Assigned Patient Location: LAB Current Patient Location: Accession/Order Number: [id number] Exam Date: 02/19/2025 19:47 Report Date: 02/20/2025 [...] Pisano M.D. 02/20/2025 8:37 AM Dictation Location: [place] [address] Electronically authenticated by: [id number] Y Date: 02/20/2025 08:37 Dictated By: Pamela Pisano M.D. Signed By: 02/20/25 0840 DD/ TD/TT: Nurses Supervisor: SHILOH Colon CBC WITH AUTO DIFFon [id number] ABSOLUTE AUTO0.0[facility] HealthcareBasophils/100 WBC (Bld)0.2 %0.2 - 2.0 %SHILOH HealthcareEosinophils/100 WBC (Bld)0.3 %Low0.9 - 7.0 %[facility] HealthcareErythrocyte distribution width (RBC) [Ratio]13.1 %11.0 - 15.0 %[facility] HealthcareHematocrit (Bld) [Volume fraction]34.6 %Low36.0 - 48.0 %[facility]OM HealthcareHemoglobin (Bld) [Mass/Vol]12.1 g/dL12.0 - 16.0 g/dLNOOK HealthcareIMMATURE GRANULOCYTES ABS AUTO0.06HighNOOK HealthcareImmature granulocytes/100 WBC (Bld)0.6 %High0.0 - 0.5 %[facility] HealthcareInterpretation and review of laboratory resultsAbnormalNOOK HealthcareLYMPHOCYTES ABSOLUTE AUTO2.3 NOM HealthcareLymphocytes/100 WBC (Bld)24.3 %20.5 - 60.0 %[facility] CenterH (RBC) [Entitic mass]31.7 pg26.7 - 34.0 pgNOMissouri Baptist Medical CenterMCHC (RBC) [Mass/Vol] 35.0 g/dL29.9 - 35.2 g/dLParkland Health CenterMCV (RBC) [Entitic vol]90.6 fL81.0 - 99.0 fLNOOK HealthcareMONOCYTES ABSOLUTE AUTO0.5NOMS HealthcareMonocytes/100 WBC (Bld)5.6 %1.7 - 12.0 %NOM HealthcareNEUTROPHILS ABSOLUTE AUTO6.6HighNOMS HealthcareNeutrophils/100 WBC (Bld)69.0 %43.0 - 75.0 %[facility] HealthcarePlatelet mean volume (Bld) [Entitic vol]9.7 fL9.5 - 13.5 fLNOMissouri Baptist Medical CenterTBH EO #0.0NOMS [facility] HospitalTB TQA003KRXL St. [facility] HospitalTB RBC3.82LowNOMS St. Vincent HospitalTB WBC9.6NOOK HealthcareCLINISYNCNOMS HealthcareUrinalysis macro (dipstick) panel (U)on 24-90-1070Xkqumwfxt, UANegativeNegative - 4(70) +++ mg/dLNOMS HealthcareBlood, UANegativeNegative - 50 Max/mcLNOMS HealthcareClarity, UAClearNOMS Healthcare Color, UAYellowNOMS HealthcareGlucose, UANegativeNegative - 2000(110) ++++ mg/dL NOMS HealthcareInterpretation and review of laboratory resultsAbnormalNOOK HealthcareKetones, UANegativeNegative - 160(16) ++++ mg/dLNOOK Healthcare Leukocytes, UATraceNegative - 500+++ John/mcLNOOK HealthcareNitrite, UANegative Negative - PositiveNOMS HealthcarepH, UA6.55 - 9NOMS HealthcareProtein, UA NegativeNegative - 2000(20) ++++ mg/dLNOMS HealthcareSpec Grav, UA1.0051 - 1.03 NOMS HealthcareUrobilinogen, UA2.00.2 - 12 mg/dLNOMS HealthcareNOMS Healthcare CNPNon 71-93-9963JROTTllnuzlth (HEMASA) SANNA RENDON ([id number]) 1985 F Date Time Provider Department 01/29/25 [...] her OB recommended. Thanks, Katherine Negrete APRN.Rachael Bronw RN 02/05/2025 11:13 AM Signed VM left [...] Date Reviewed: 12/24/2024 Reviewed by: Katherine Negrete APRN.SETTER UP - Fully Assessed Reason for Visit: Fatigue [...] 05/28/2024 Encounter Status:Closed by RACHAEL JOHNSON on 01/30/25[facility] 56-35-2019FZUVXubyqshgg (HEMASA) SANNA RENDON ([id number]) 1985 F Date Time Provider Department 01/26/25 [...] Date Reviewed: 12/24/2024 Reviewed by: Penelope, Katherine, TRAFFIC OPERATOR.SETTER UP - Fully Assessed Prescriptions as of 01/26/2025 [...] 05/28/2024 Encounter Status:Closed by RACHAEL JOHNSON on 01/26/25NoalCMercy Memorial HospitalUrinalysis macro (dipstick) panel (U)on 04-66-7661Aybdzubat, UANegative Negative - 4(70) +++ mg/dLNOMS HealthcareBlood, UANegativeNegative - 50 Max/mcL NOMS HealthcareClarity, UAClearNOOK HealthcareColor, UAYellowNOOK Healthcare Glucose, UANegativeNegative - 2000(110) ++++ mg/dLNOMS HealthcareInterpretation and review of laboratory resultsNormalNOOK HealthcareKetones, UANegativeNegative - 160(16) ++++ mg/dLNOMS HealthcareLeukocytes, UANegativeNegative - 500+++ John/mcLNOMS HealthcareNitrite, UANegativeNegative - PositiveNOMS HealthcarepH, UA65 - 9NOMS HealthcareProtein, UANegativeNegative - 2000(20) ++++ mg/dLNOMS HealthcareSpec Grav, UA1.011 - 1.03NOMS HealthcareUrobilinogen, UA0.20.2 - 12 mg/dLNOMS HealthcareNOMS HealthcareTSHon 14-26-5792YVK Qn1.85 m[IU]/LNormal 0.34-5.60[facility]ly [facility] Hospitaler [facility] CenterComment on above:Performed By: #### [id number] #### Braulio [facility] [address], [place] [address]Kcscpvjobr macro (dipstick) panel (U)on 57-94-8435Grnhoyzvo, UA NegativeNegative - 4(70) +++ mg/dLNOMS HealthcareBlood, [...] HealthcareNOMS HealthcareCBC W Auto Differential panel (Bld)on 91-77-9219Zyeaceles (Bld) [#/Vol]10*3/uLNormal<0.11CMercy Memorial HospitalComment on above:Order Comment: Specimen Type: BLOOD SPECIMENOrdering Facility: [facility] Address:[address] [place], [place] [address]Mdgoinkus By: #### 70418-9 ####[facility] LABCLIA [id number] [place], [place] [address]Sknhmrmpo/100 WBC (Bld)0.2 % NormalMercy Health Fairfield Hospital on above:Order Comment: Specimen Type: BLOOD SPECIMENOrdering Facility: [facility] Address:[address] [place], [place] [address]Performed By: #### 37164-7 ####[facility] LABCLIA [id number] [place] [address] Differential cell count method Nom (Bld)AutoNormalClevelCritical access hospital Comment on above:Order Comment: Specimen Type: BLOOD SPECIMENOrdering Facility: [facility] Address:[address] [place] [address] Performed By: #### 84024-8 ####[facility] LABCLIA [id number] [place], [place] [address]Ywglgmcqbti (Bld) [#/Vol]0.03 10*3/uLNormal<0.46[facility] on above:Order Comment: Specimen Type: BLOOD SPECIMENOrdering Facility: [facility] Address:[address] [place], [place] [address]Performed By: #### 52870-1 ####[facility] LABCLIA [id number] [place], [place] [address]Erhngpwqiyr/100 WBC (Bld)0.4 %NormalMercy Health Fairfield Hospital on above:Order Comment: Specimen Type: BLOOD SPECIMENOrdering Facility: [facility] Address:[address] [place], [place] [address]Performed By: #### 19525-5 ####[facility] LABIA [id number] [place], [place] [address]Hbmpjggbtau distribution width (RBC) [Ratio]13.5 %Oigpsw98.5-15.0[facility] on above: Order Comment: Specimen Type: BLOOD SPECIMENOrdering Facility: [facility] Address:[address] [place], [place] [address]Performed By: #### 33820- 8 ####[facility] LABCLIA [id number] [place], [place] [address]Ffeosknlgj (Bld) [Volume fraction]34.6 %Low36.0-46.0 [facility] on above:Order Comment: Specimen Type: BLOOD SPECIMENOrdering Facility: [facility] Address:[address] [place], [place] [address]Performed By: #### 54374-4 ####[facility] LABCLIA [id number] [place], [place] [address]Alyzkaebmu (Bld) [Mass/Vol]12.0 g/oABshywf62.5-15.5CNorwalk Memorial Hospital on above: Order Comment: Specimen Type: BLOOD SPECIMENOrdering Facility: [facility] Address:[address] [place], [place] [address]Performed By: #### 67954- 8 ####[facility] LABCLIA [id number] [place], [place] [address]Kjjpxsfd granulocytes (Bld) [#/Vol]0.04 10*3/uLNormal <0.10[facility] on above:Order Comment: Specimen Type: BLOOD SPECIMENOrdering Facility: [facility] Address:[address] [place], [place] [address]Performed By: #### 50828-8 ####[facility] LABCLIA [id number] [place], [place] [address]Mbicofyu granulocytes/100 WBC (Bld)0.5 %NormalMercy Health Fairfield Hospital on above: Order Comment: Specimen Type: BLOOD SPECIMENOrdering Facility: [facility] Address:[address] [place], [place] [address]Performed By: #### 90660- 8 ####[facility] LABCLIA [id number] [place], [place] [address]Bcfslyplccj (Bld) [#/Vol]2.45 10*3/uLNormal1.00-4.00 [facility] on above:Order Comment: Specimen Type: BLOOD SPECIMENOrdering Facility: [facility] Address:[address] [place], [place] [address]Performed By: #### 72731-4 ####[facility] LABCLIA [id number] [place], [place] [address]Egcpcecjkby/100 WBC (Bld)28.7 %NormalMercy Health Fairfield Hospital on above:Order Comment: Specimen Type: BLOOD SPECIMENOrdering Facility: [facility] Address:[address] [place], [place] [address]Performed By: #### 93321-3 ####[facility] LABCLIA [id number] [place], [place] [address]COI (RBC) [Entitic mass]31.6 sfTbwkua97.0-34.0[facility] on above:Order Comment: Specimen Type: BLOOD SPECIMENOrdering Facility: [facility] Address:[address] [place], [place] [address]Performed By: #### 92862-2 ####[facility] LABCLIA [id number] [place], [place] [address]TEIW (RBC) [Mass/Vol]34.7 g/gSLgvbzz70.5-36.0[facility] on above: Order Comment: Specimen Type: BLOOD SPECIMENOrdering Facility: [facility] Address:[address] [place], [place] [address]Performed By: #### 09170- 8 ####[facility] LABCLIA [id number] [place], [place] [address]TPZ (RBC) [Entitic vol]91.1 mJBpwmvh60.0-100.0[facility] on above:Order Comment: Specimen Type: BLOOD SPECIMENOrdering Facility: [facility] Address:[address] [place], [place] [address]Performed By: #### 92820-2 ####[facility] LABCLIA [id number] [place], [place] [address]Srgoitkvv (Bld) [#/Vol]0.44 10*3/uLNormal<0.87[facility] on above:Order Comment: Specimen Type: BLOOD SPECIMENOrdering Facility: [facility] Address:[address] [place], [place] [address]Performed By: #### 50278- 8 ####[facility] LABCLIA [id number] [place], [place] [address]Qsffstzfr/100 WBC (Bld)5.1 %NormalMercy Health Fairfield Hospital on above:Order Comment: Specimen Type: BLOOD SPECIMENOrdering Facility: [facility] Address:[address] [place], [place] [address]Performed By: #### 98488-8 ####[facility] LABCLIA [id number] [place], [place] [address]Agqncfhrmik (Bld) [#/Vol]5.57 10*3/uLNormal1.45-7.50[facility] on above:Order Comment: Specimen Type: BLOOD SPECIMENOrdering Facility: [facility] Address:[address] [place], [place] [address]Performed By: #### 54893-1 ####[facility] LABCLIA [id number] [place], [place] [address]Nfthyeeuzfn/100 WBC (Bld)65.1 %NormalMercy Health Fairfield Hospital on above:Order Comment: Specimen Type: BLOOD SPECIMENOrdering Facility: [facility] Address:[address] [place], [place] [address]Performed By: #### 73489-0 ####[facility] LABCLIA [id number] [place], [place] [address]Nwfuvubqz RBC (Bld) [#/Vol] 10*3/uLNormal<0.01[facility] on above:Order Comment: Specimen Type: BLOOD SPECIMENOrdering Facility: [facility] Address:[address] [place], [place] [address]Performed By: #### 39181-4 ####[facility] LABCLIA [id number] [place], [place] [address]Leziqbglt RBC/100 WBC (Bld) [Ratio]0.0 /100 WBCNormal [facility] on above:Order Comment: Specimen Type: BLOOD SPECIMENOrdering Facility: [facility] Address:[address] [place], [place] [address]Performed By: #### 36830-5 ####[facility] LABIA [id number] [place], [place] [address]Wcgqmgha mean volume (Bld) [Entitic vol]9.7 fLNormal9.0-12.7CNorwalk Memorial Hospital on above:Order Comment: Specimen Type: BLOOD SPECIMENOrdering Facility: [facility] Address:[address] [place] [address] Performed By: #### 08274-3 ####[facility] LABCLIA [id number] [place], [place] [address]Zhfcejcty (Bld) [#/Vol]260 10*3/bUIgkjbn911-552PdpqeprhnMercy Health Fairfield Hospital on above:Order Comment: Specimen Type: BLOOD SPECIMENOrdering Facility: [facility] Address:[address] [place], [place] [address]Performed By: #### 37361-6 ####[facility] LABCLIA [id number] [place], [place] [address]IIT (Bld) [#/Vol]3.80 10*6/uLLow3.90-5.20[facility] on above:Order Comment: Specimen Type: BLOOD SPECIMENOrdering Facility: [facility] Address:[address] [place], [place] [address]Pxenxcaoc By: #### 10542-4 ####[facility] CENTERIA [id number] [place], [place] [address]LMF (Bld) [#/Vol]8.55 10*3/uL Normal3.70-11.00[facility] HospitalComselect specialty hospital-flint on above:Order Comment: Specimen Type: BLOOD SPECIMENOrdering Facility: [facility] Address:[address] [place] [address]Gcukfmdvx By: #### 12551-1 ####ES [facility] LABCLIA [id number] [place], [place] [address]TUKVAGev 61-96-1027VWTFTJZuuem (SP) Office (HEMASA) SANNA RENDON ([id number]) 1985 F Date Time Provider Department 12/23/24 11:30 AM KATHERINE NEGRETE During your visit today, we recorded the following information about you: Temperature Pulse Respiration Blood pressure 97.6 degrees 80/minute 16/minute 103/69 Weight Height 94.4 kg 1.677 m Katherine Negrete APRN.SETTER UP 12/24/2024 9:07 PM Signed NAME: Sanna Rendon CLINIC NO.: [id number] DATE OF SERVICE: December 23, 2024 (Penelope) [...] later in 2018. These were found in [place], [place]. I don't have access to these [...] vitamin D supplementat (more content not included)...Normal [facility] HospitalComprehensive metabolic 2000 panelon 34-69-5876Sjavjsh [Mass/Vol]4.1 g/dLNormal3.9-4.9CNorwalk Memorial Hospital on above:Order Comment: Specimen Type: BLOOD SPECIMENOrdering Facility: [facility] Address:[address] [place] [id number] By: #### 08505- 8 ####[facility] LABCLIA [id number] FABI DUMONTNORTHWEST MEDICAL CENTERVANESS[place], [place] [address]FRT [Catalytic activity/Vol]43 U/PCgofvx84-699FitvlvzobMercy Health Fairfield Hospital on above:Order Comment: Specimen Type: BLOOD SPECIMENOrdering Facility: [facility] Address:[address] [place], [place] [address]Performed By: #### 44621-7 ####[facility] LABCLIA [id number] FABI GREENSENORTHWEST MEDICAL CENTERTEETEELEIGHTON, [place] [address]HRF [Catalytic activity/Vol]11 U/LNormal7-38[facility] on above:Order Comment: Specimen Type: BLOOD SPECIMENOrdering Facility: [facility] Address:[address] [place], [place] [address]Performed By: #### 64530- 8 ####[facility] LABCLIA [id number] [facility] [place], [place] [address]Vybbu gap [Moles/Vol]12 mmol/LNormal8-15[facility] on above:Order Comment: Specimen Type: BLOOD SPECIMENOrdering Facility: [facility] Address:[address] [place], [place] [address]Performed By: #### 76406-3 ####[facility] LABCLIA [id number] FABI CHERRYNORTHWEST MEDICAL CENTERVANESSADORSET, [place] [address]LFD [Catalytic activity/Vol]12 U/RAxh07-65RqkzkfkakMercy Health Fairfield Hospital on above:Order Comment: Specimen Type: BLOOD SPECIMENOrdering Facility: [facility] Address:[address] [place], [place] [address]Performed By: #### 30004-2 ####[facility] LABCLIA [id number] [facility] PETERSENORTHWEST [place] [address] Bilirubin [Mass/Vol]0.2 mg/dLNormal0.2-1.3CNorwalk Memorial Hospital on above:Order Comment: Specimen Type: BLOOD SPECIMENOrdering Facility: [facility] Address:[address] [place], [place] [address]Performed By: #### 44052-7 ####[facility] LABCLIA [id number] [facility]ALSE[place], [place] [address]Ohdtvzg [Mass/Vol]9.5 mg/dLNormal8.5-10.2CNorwalk Memorial Hospital on above:Order Comment: Specimen Type: BLOOD SPECIMENOrdering Facility: [facility] Address:[address] [place], [place] [address]Performed By: #### 29141-1 ####[facility] LABCLIA [id number] [place], [place] [address]Lvuykmtg [Moles/Vol]98 mmol/VMydiau60-164VtwggfnvyMercy Health Fairfield Hospital on above:Order Comment: Specimen Type: BLOOD SPECIMENOrdering Facility: [facility] Address:[address] [place], [place] [address]Performed By: #### 35261- 8 ####[facility] LABCLIA [id number] [facility] TIMW[place], [place] [address]TF1 [Moles/Vol]20 mmol/XKim29-36NjapxjsahMercy Health Fairfield Hospital on above:Order Comment: Specimen Type: BLOOD SPECIMENOrdering Facility: [facility] Address:[address] [place], [place] [address]Performed By: #### 05884-4 ####[facility] LABCLIA [id number] [place], [place] [address]Axjdafvuua [Mass/Vol]0.54 mg/dL Low0.58-0.96[facility] on above:Order Comment: Specimen Type: BLOOD SPECIMENOrdering Facility: [facility] Address:[address] [place], [place] [address]Performed By: #### 78087-0 ####[facility] LABCLIA [id number] [facility] [place] [address] eGFRcr SerPlBld CKD-EPI 0001317 mL/min/1.73m???Normal>=60[facility] on above:Order Comment: Specimen Type: BLOOD SPECIMENOrdering Facility: [facility] Address:[address] [place], [place] [address]Afxzcp Comment: Estimated Glomerular Filtration Rate (eGFR) is [...] accurately reflect actual GFR. Performed By: #### 90713-0 ####[facility] LABCLIA [id number] [place], [place] [address]Wduktpc [Mass/Vol]104 mg/dLHigh 74-99[facility] on above:Order Comment: Specimen Type: BLOOD SPECIMENOrdering Facility: [facility] Address:[address] [place] [address]Tlegpn Comment: The [place] Diabetes Association (ADA) provides guidance for cutoff [...] Standards of Medical Care in Diabetes 2016, [place] [employer] Association. Diabetes Care. 2016.39(Suppl 1).Performed By: #### 25609-3 ####[facility] LABCLIA [id number] [place], [place] [address]Btojbmppk [Moles/Vol]4.0 mmol/LNormal3.7-5.1CNorwalk Memorial Hospital on above:Order Comment: Specimen Type: BLOOD SPECIMENOrdering Facility: [facility] Address:[address] [place], [place] [address]Resdyeybd By: #### 36771-8 ####[facility] LABCLIA [id number] [place], [place] [address]Bsllihb [Mass/Vol]6.7 g/dLNormal6.3-8.0[facility] on above:Order Comment: Specimen Type: BLOOD SPECIMENOrdering Facility: [facility] Address:[address] [place], [place] [address]Performed By: #### 07830- 8 ####[facility] LABCLIA [id number] [place], [place] [address]Hkpzhg [Moles/Vol]130 mmol/DQyr548-042ZcajadyfpMercy Health Fairfield Hospital on above:Order Comment: Specimen Type: BLOOD SPECIMENOrdering Facility: [facility] Address:[address] [place], [place] [address]Performed By: #### 53977-4 ####[facility] LABCLIA [id number] [place], [place] [address]Vckt nitrogen [Mass/Vol]7 mg/dL Normal7-21[facility] on above:Order Comment: Specimen Type: BLOOD SPECIMENOrdering Facility: [facility] Address:[address] [place], [place] [address]Performed By: #### 96664-1 ####[facility] LABCLIA [id number] [place] [address] Ferritin SerPl-mCncon 24-31-1306Ffrumqjd [Mass/Vol]43.5 ng/jVXsyipk11.7-205.1 [facility] on above:Order Comment: Specimen Type: BLOOD SPECIMENOrdering Facility: [facility] Address:[address] [place], [place] [address]Performed By: #### 49635-0, 2276-4, 2132-9 ####[facility] LABCLIA [id number] [place] [address] [place] OF AMERICAIron and Iron binding capacity panelon 08-26-2025 Iron [Mass/Vol]80 ug/qKKbpjmf52-624JdhjbohotMercy Health Fairfield Hospital on above: Order Comment: Specimen Type: BLOOD SPECIMENOrdering Facility: [facility] Address:[address] [place], [place] [address]Performed By: #### 67389- 8, 2275-07, 2131-12 ####[facility] LABCLIA [id number] [address] AMERICAIron binding capacity [Mass/Vol]437 ug/fXQacg716-999PbsjcmseuMercy Health Fairfield Hospital on above:Order Comment: Specimen Type: BLOOD SPECIMENOrdering Facility: [facility] Address:[address] [place], [place] [address]Performed By: #### 52074- 8, 2275-07, 2131-12 ####[facility] LABCLIA [id number] [address]Iron/TIBC [Molar ratio]18.3 %Nshezb62.0-57.0[facility] on above:Order Comment: Specimen Type: BLOOD SPECIMENOrdering Facility: [facility] Address:[address] [place], [place] [address]Performed By: #### 04836- 8, 2275-07, 2131-12 ####[facility] LABCLIA [id number] [place] [address] [facility] AMERICAVit B12 [facility] 54-16-8003Utganbrdp (Vitamin B12) [Mass/Vol]328 pg/aKRkxjvl586-3635HwlozfookNorwalk Memorial Hospital on above:Order Comment: Specimen Type: BLOOD SPECIMENOrdering Facility: [facility] Address:[address] [place], [place] [address]Performed By: #### 32447-6, 2275-07, 2131-12 ####[facility] LABCLIA [id number] [place] [address] [facility] DETW[facility]OSPITALTB UA (CLEAN/CATCH) LUMP RECEIVER/MICRO IF IND.on 04-25-0883XOICUXBGN URINENegativeNEGATIVENOMS HealthcareBLOOD URINENegative NEGATIVENOMS HealthcareClarity (U)CLEARCLEARNOMS HealthcareColor (U)LT. YELLOW YELLOWNOMS HealthcareGLUCOSE URINE UANegativeNEGATIVE mg/dLNOMS Healthcare Interpretation and review of laboratory resultsAbnormalNOMS HealthcareKetones Ql (U)NegativeNEGATIVE mg/dLNOMS HealthcareLeukocyte esterase Test strip Ql (U) SMALLAbnormalNEGATIVENOMS HealthcareNITRITE URINENegativeNEGATIVENOMS Healthcare pH (U)6.0 [pH]5.0 - 9.0NOMS HealthcarePROTEIN URINENegativeNEG/TRACE mg/dLNOMS HealthcareSPECIFIC GRAVITY URINE<=1.222Tpjnsqvh2.005 - 1.025NOMS HealthcareURINE MICROSCOPIC INDICATEDYESNOMS HealthcareUROBILINOGEN URINE0.2 EU/dL0.2 - 1.0 EU/dLNOOK HealthcareCLINISYNCNOMS HealthcareUS OB CERVICAL LENGTHon 12-16-[address] [address] Ultrasound Report Signed Patient: SANNA RENDON MR#: [id number] : 1985 Acct:[id number] Age/Sex: 39 / F ADM Date: Loc: [facility] 251-[address]: Wilton Herrmann D.O. Ordering Physician: Wilton Herrmann D.O. Date of Service: 12/16/24 Procedure(s): US OB cervical length Accession Number(s): [id number] cc: Wilton Herrmann D.O.; PENELOPE CASAS [address] [address] Patient Name: SANNA RENDON MRN: [id number] date: 1985 Sex: F Assigned Patient Location: [facility] Current Patient Location: Accession/Order Number: [id number] Exam Date: 12/16/2024 20:39 Report Date: 12/16/2024 [...] Beltrán M.D. 12/16/2024 8:41 PM Dictation Location: Gild Electronically authenticated by: [id number] Y Date: 12/16/2024 20:41 Dictated By: Robert Beltrán D.O. Signed By: 12/16/242042 DD/ 40 TD/TT: Nurses Supervisor:ELVERadiologcarmen Radiologist, - 12/16/2024 [place] [address] Ultrasound Report Signed Patient: SANNA RENDON MR#: [id number] : 1985 Acct:[id number] Age/Sex: 39 / F ADM Date: Loc: [facility] [address]: Wilton Herrmann D.O. Ordering Physician: Wilton Herrmann D.O. Date of Service: 12/16/24 Procedure(s): US OB cervical length Accession Number(s): [id number] cc: Wilton Herrmann D.O.; PENELOPE CASAS [place] [address] Patient Name: SANNA RENDON MRN: [id number] date: 1985 Sex: F Assigned Patient Location: [facility] Current Patient Location: Accession/Order Number: [id number] Exam Date: 12/16/2024 20:39 Report Date: 12/16/2024 [...] Beltrán M.D. 12/16/2024 8:41 PM Dictation Location: Gild Electronically authenticated by: [id number] Y Date: 12/16/2024 20:41 Dictated By: Robert Beltrán D.O. Signed By: 12/16/242042 DD/ 40 TD/TT: Nurses Supervisor: SHILOH HealthcareRadiology Study observation (narrative)NOMS HealthcareUS OB CERVICAL LENGTHOrdered By: Radiologist Radiology on 68-16-9993ONFUParkland Health Center Work Phone: aLL THYROID STIM HORMONEon 13-87-7105CRQ Qn1.508 m[IU]/LNOMS HealthcareCLINISYNCNOMS HealthcareUrinalysis macro (dipstick) panel (U)on 70-78-8314Pqpxsftcc, UANegativeNegative - 4(70) +++ mg/dLNOOK Healthcare Blood, UANegativeNegative - 50 Max/mcLNOOK HealthcareClarity, UAClearNOMS HealthcareColor, UAYellowNOMS HealthcareGlucose, UANegativeNegative - 2000(110) ++++ mg/dLNOOK HealthcareInterpretation and review of laboratory resultsNormal NOM HealthcareKetones, UANegativeNegative - 160(16) ++++ mg/dLNOOK Healthcare Leukocytes, UANegativeNegative - 500+++ John/mcLNOOK HealthcareNitrite, UA NegativeNegative - PositiveNOMS HealthcarepH, UA65 - 9NOMS HealthcareProtein, UA NegativeNegative - 2000(20) ++++ mg/dLNOOK HealthcareSpec Grav, UA1.011 - 1.03 NOMS HealthcareUrobilinogen, UA1.00.2 - 12 mg/dLNOOK HealthcareNOOK Healthcare Urinalysis macro (dipstick) panel (U)on [id number], UANegativeNegative - 4(70) +++ mg/dLNOMS HealthcareBlood, UANegativeNegative [...] HealthcareGlucose random or fasting- [facility]-2024 External Glucose Fasting Or Random (Fbs)94[facility] CenterUrinalysis macro (dipstick) panel (U)on 28-29-9030Mghlfljgg, UA NegativeNegative - 4(70) +++ mg/dLNOMS HealthcareBlood, [...] 1.03NOMS HealthcareUrobilinogen, UA0.20.2 - 12 mg/dLNOMS HealthcareNOMS Jciiuyalgl52([place])D3 SerPl-[facility] Centeron [id number]-mombkywiizdaez D3 [Mass/Vol]32.1 ng/eQBxbrzr64.0-80.0[facility] on above:Order Comment: Specimen Type: BLOOD SPECIMENOrdering Facility: [facility] Address:[address] [place], [place] [address]Result Comment: Classification of 25 [place] Vitamin D status: Deficiency/Insufficiency: < or = 30 ng/ml. Sufficiency/Optimal Levels: 31-80 ng/mL Toxicity: > 100 ng/mL. Test performed by chemiluminescent immunoassay.Performed By: #### 1989-3 ####[facility] LABCLIA [id number] [address] Auto Differential panel (Bld)on 15-80-4301Pbvfmiomc (Bld) [#/Vol]0.03 10*3/uLNormal<0.11CMercy Memorial HospitalComment on above:Order Comment: Specimen Type: BLOOD SPECIMENOrdering Facility: [facility] Address:[address] [place], [place] [address]Performed By: #### 84622-9 ####[facility] LABIA [id number] [place], [place] [address]Cueszfnbm/100 WBC (Bld)0.3 % NormalMercy Health Fairfield Hospital on above:Order Comment: Specimen Type: BLOOD SPECIMENOrdering Facility: [facility] Address:[address] [place], [place] [address]Performed By: #### 30027-9 ####[facility] LABCLIA [id number] [place] [address] Differential cell count method Nom (Bld)AutoNormalCMercy Memorial Hospital Comment on above:Order Comment: Specimen Type: BLOOD SPECIMENOrdering Facility: [facility] Address:[address] [place] [address] Performed By: #### 51794-4 ####[facility] LABCLIA [id number] [place], [place] [address]Hfloavktadt (Bld) [#/Vol]0.05 10*3/uLNormal<0.46[facility] on above:Order Comment: Specimen Type: BLOOD SPECIMENOrdering Facility: [facility] Address:[address] [place], [place] [address]Performed By: #### 28101-7 ####[facility] LABCLIA [id number] [place], [place] [address]Fguuumetkmv/100 WBC (Bld)0.5 %NormalMercy Health Fairfield Hospital on above:Order Comment: Specimen Type: BLOOD SPECIMENOrdering Facility: [facility] Address:[address] [place], [place] [address]Performed By: #### 36710-9 ####[facility] LABCLIA [id number] [place], [place] [address]Flxsxtgixqf distribution width (RBC) [Ratio]14.5 %Zgyryn78.5-15.0[facility] on above: Order Comment: Specimen Type: BLOOD SPECIMENOrdering Facility: [facility] Address:[address] [place], [place] [address]Performed By: #### 48581- 8 ####[facility] LABCLIA [id number] [place], [place] [address]Nidvhwkxrf (Bld) [Volume fraction]36.9 %Qqmdqm82.0-46.0 [facility] on above:Order Comment: Specimen Type: BLOOD SPECIMENOrdering Facility: [facility] Address:[address] [place], [place] [address]Performed By: #### 56797-5 ####[facility] LABIA [id number] [place], [place] [address]Iophpgtvbg (Bld) [Mass/Vol]13.0 g/qNXszddj80.5-15.5CNorwalk Memorial Hospital on above: Order Comment: Specimen Type: BLOOD SPECIMENOrdering Facility: [facility] Address:[address] [place], [place] [address]Performed By: #### 53459- 8 ####[facility] LABCLIA [id number] [place], [place] [address]Oxvdssvr granulocytes (Bld) [#/Vol]10*3/uLNormal<0.10 [facility] on above:Order Comment: Specimen Type: BLOOD SPECIMENOrdering Facility: [facility] Address:[address] [place], [place] [address]Performed By: #### 28012-8 ####[facility] LABCLIA [id number] [place], [place] [address]Ymajvoke granulocytes/100 WBC (Bld)0.2 %NormalMercy Health Fairfield Hospital on above: Order Comment: Specimen Type: BLOOD SPECIMENOrdering Facility: [facility] Address:[address] [place], [place] [address]Performed By: #### 50627- 8 ####[facility] LABIA [id number] [place], [place] [address]Qsttlukqsak (Bld) [#/Vol]2.50 10*3/uLNormal1.00-4.00 [facility] on above:Order Comment: Specimen Type: BLOOD SPECIMENOrdering Facility: [facility] Address:[address] [place], [place] [address]Performed By: #### 86140-8 ####[facility] LABIA [id number] [place], [place] [address]Zvlafkzdudk/100 WBC (Bld)26.3 %NormalMercy Health Fairfield Hospital on above:Order Comment: Specimen Type: BLOOD SPECIMENOrdering Facility: [facility] Address:[address] [place], [place] [address]Performed By: #### 92125-8 ####[facility] LABIA [id number] [place], [place] [address]SHL (RBC) [Entitic mass]30.6 mdNamrun79.0-34.0[facility] on above:Order Comment: Specimen Type: BLOOD SPECIMENOrdering Facility: [facility] Address:[address] [place], [place] [address]Performed By: #### 62863-7 ####[facility] LABCLIA [id number] [place], [place] [address]BUUL (RBC) [Mass/Vol]35.2 g/bGQmsudl33.5-36.0[facility] on above: Order Comment: Specimen Type: BLOOD SPECIMENOrdering Facility: [facility] Address:[address] [place], [place] [address]Performed By: #### 12389- 8 ####[facility] LABCLIA [id number] [place], [place] [address]ZEJ (RBC) [Entitic vol]86.8 yEZdkoly38.0-100.0[facility] on above:Order Comment: Specimen Type: BLOOD SPECIMENOrdering Facility: [facility] Address:[address] [place], [place] [address]Performed By: #### 33683-2 ####[facility] LABCLIA [id number] [place], [place] [address]Jttopoqvo (Bld) [#/Vol]0.44 10*3/uLNormal<0.87[facility] on above:Order Comment: Specimen Type: BLOOD SPECIMENOrdering Facility: [facility] Address:[address] [place], [place] [address]Performed By: #### 62821- 8 ####[facility] LABCLIA [id number] [place], [place] [address]Aroitutov/100 WBC (Bld)4.6 %NormalMercy Health Fairfield Hospital on above:Order Comment: Specimen Type: BLOOD SPECIMENOrdering Facility: [facility] Address:[address] [place], [place] [address]Performed By: #### 66462-9 ####[facility] LABCLIA [id number] [place], [place] [address]Icwtagouqel (Bld) [#/Vol]6.48 10*3/uLNormal1.45-7.50[facility] on above:Order Comment: Specimen Type: BLOOD SPECIMENOrdering Facility: [facility] Address:[address] [place], [place] [address]Performed By: #### 78075-9 ####[facility] LABCLIA [id number] [place], [place] [address]Mwrneujzerk/100 WBC (Bld)68.1 %NormalMercy Health Fairfield Hospital on above:Order Comment: Specimen Type: BLOOD SPECIMENOrdering Facility: [facility] Address:[address] [place], [place] [address]Performed By: #### 40517-7 ####[facility] LABCLIA [id number] [place], [place] [address]Wvxnewogu RBC (Bld) [#/Vol] 10*3/uLNormal<0.01[facility] on above:Order Comment: Specimen Type: BLOOD SPECIMENOrdering Facility: [facility] Address:[address] [place], [place] [address]Performed By: #### 08449-0 ####[facility] LABCLIA [id number] [place], [place] [address]Dettsvgqg RBC/100 WBC (Bld) [Ratio]0.0 /100 WBCNormal [facility] on above:Order Comment: Specimen Type: BLOOD SPECIMENOrdering Facility: [facility] Address:[address] [place], [place] [address]Performed By: #### 80020-5 ####[facility] LABIA [id number] [place], [place] [address]Yfaswgms mean volume (Bld) [Entitic vol]9.8 fLNormal9.0-12.7CNorwalk Memorial Hospital on above:Order Comment: Specimen Type: BLOOD SPECIMENOrdering Facility: [facility] Address:[address] [place] [address] Performed By: #### 73397-8 ####[facility] LABCLIA [id number] [place], [place] [address]Qzmtunvil (Bld) [#/Vol]327 10*3/oWYjhzhg874-747KqdfulfkzMercy Health Fairfield Hospital on above:Order Comment: Specimen Type: BLOOD SPECIMENOrdering Facility: [facility] Address:[address] [place], [place] [address]Performed By: #### 48983-7 ####[facility] LABIA [id number] [place], [place] [address]NVQ (Bld) [#/Vol]4.25 10*6/uLNormal3.90-5.20[facility] on above:Order Comment: Specimen Type: BLOOD SPECIMENOrdering Facility: [facility] Address:[address] [place], [place] [address]Performed By: #### 65660-8 ####[facility] LABIA [id number] [place], [place] [address]PDD (Bld) [#/Vol]9.52 10*3/uLNormal3.70-11.00[facility] on above: Order Comment: Specimen Type: BLOOD SPECIMENOrdering Facility: [facility] Address:[address] [place], [place] [address]Performed By: #### 63572- 8 ####[facility] LABIA [id number] [place], [place] [address]PWIPHRgx 23-06-4953EKUKIFRyagp (SP) Office (HEMASA) SANNA RENDON ([id number]) 1985 F Date Time Provider Department 10/28/24 2:30 PM KATHERINE NEGRETE During your visit today, we recorded the following information about you: Temperature Pulse Respiration Blood pressure 97 degrees 82/minute 16/minute 122/77 Weight Last Period 94.1 kg 10/28/24 Katherine Negrete APRN.SETTER UP 10/29/2024 9:44 PM Signed NAME: Sanna Rendon CLINIC NO.: [id number] DATE OF SERVICE: October 28, 2024 (Penelope) [...] later in 2018. These were found in [place], [place]. I don't have access to these [...] negative. Numbness and vi (more content not included)...NormalMemorial [facility] Sisi 94-82-8142BVOBHydvaihul (NCCAP) SANNA RENDON ([id number]) 1985 F Date Time Provider Department 10/28/24 [...] recommended. 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 She denies further questions, [...] 05/28/2024 Encounter Status:Closed by RACHAEL JOHNSON on 11/05/24NormalCCleveland Clinic Mentor Hospitalprehensive metabolic 2000 panelon 29-61-0971Vwlbocs [Mass/Vol]4.4 g/dLNormal3.9-4.9CNorwalk Memorial Hospital on above:Order Comment: Specimen Type: BLOOD SPECIMENOrdering Facility: [facility] Address:[address] [place], [place] [address]Performed By: #### 51504-2 ####[facility] LABCLIA [id number] [place], [place] [address]RSJ [Catalytic activity/Vol]55 U/EFoukgn78-538EpxeevhgfMercy Health Fairfield Hospital on above:Order Comment: Specimen Type: BLOOD SPECIMENOrdering Facility: [facility] Address:[address] [place], [place] [address]Performed By: #### 52708-6 ####[facility] LABCLIA [id number] [place], [place] [address]RMZ [Catalytic activity/Vol]18 U/LNormal7-38[facility] on above:Order Comment: Specimen Type: BLOOD SPECIMENOrdering Facility: [facility] Address:[address] [place], [place] [address]Performed By: #### 00816- 8 ####[facility] LABCLIA [id number] [facility] [place], [place] [address]Mfyhh gap [Moles/Vol]12 mmol/LNormal8-15[facility] on above:Order Comment: Specimen Type: BLOOD SPECIMENOrdering Facility: [facility] Address:[address] [place], [place] [address]Performed By: #### 25145-5 ####[facility] LABCLIA [id number] [facility] [place], [place] [address]SOG [Catalytic activity/Vol]13 U/RWfoywt34-74MdtcffcazMercy Health Fairfield Hospital on above:Order Comment: Specimen Type: BLOOD SPECIMENOrdering Facility: [facility] Address:[address] [place], [place] [address]Performed By: #### 52299-1 ####[facility] LABCLIA [id number] [place] [address] Bilirubin [Mass/Vol]0.2 mg/dLNormal0.2-1.3CNorwalk Memorial Hospital on above:Order Comment: Specimen Type: BLOOD SPECIMENOrdering Facility: [facility] Address:[address] [place], [place] [address]Performed By: #### 10792-3 ####[facility] LABCLIA [id number] [facility] [place], [place] [address]Srnebmv [Mass/Vol]9.9 mg/dLNormal8.5-10.2CNorwalk Memorial Hospital on above:Order Comment: Specimen Type: BLOOD SPECIMENOrdering Facility: [facility] Address:[address] [place], [place] [address]Performed By: #### 98236-0 ####[facility] LABIA [id number] [place], [place] [address]Ghjhyuzt [Moles/Vol]99 mmol/FPdoyji87-826OoqjmgynsMercy Health Fairfield Hospital on above:Order Comment: Specimen Type: BLOOD SPECIMENOrdering Facility: [facility] Address:[address] [place], [place] [address]Performed By: #### 76152- 8 ####[facility] LABCLIA [id number] [place], [place] [address]ED[address] [Moles/Vol]22 mmol/MWftzga86-37XbenhikbfMercy Health Fairfield Hospital on above:Order Comment: Specimen Type: BLOOD SPECIMENOrdering Facility: [facility] Address:[address] [place], [place] [address]Performed By: #### 47608-7 ####[facility] LABCLIA [id number] [place], [place] [address]Xfylnnwrig [Mass/Vol]0.60 mg/dL Normal0.58-0.96[facility] on above:Order Comment: Specimen Type: BLOOD SPECIMENOrdering Facility: [facility] Address:[address] [place], [place] [address]Performed By: #### 97139-2 ####[facility] LABCLIA [id number] [place], [place] [address]Zrbcairvwq and Glomerular filtration rate.predicted panel (S/P/Bld)117 mL/min/1.73m???Normal>=60[facility] on above:Order Comment: Specimen Type: BLOOD SPECIMENOrdering Facility: [facility] Address:[address] [place], [place] [address]Result Comment: Estimated Glomerular Filtration Rate (eGFR) is [...] not accurately reflect actual GFR.Performed By: #### 46179-4 ####[facility] LABCLIA [id number] [place], [place] [address]Tbrwsyw [Mass/Vol]101 mg/cLJofo20-12OolfkzaxnMercy Health Fairfield Hospital on above:Order Comment: Specimen Type: BLOOD SPECIMENOrdering Facility: [facility] Address:[address] [place] [address]Jneoha Comment: The [place] Diabetes Association (ADA) provides guidance for cutoff [...] Standards of Medical Care in Diabetes 2016, [place] Diabetes Association. Diabetes Care. 2016.39(Suppl 1).Performed By: #### 14899-8 ####[facility] LABCLIA [id number] [place], [place] [address]Qoxnukgmk [Moles/Vol]3.5 mmol/LLow3.7-5.1CNorwalk Memorial Hospital on above:Order Comment: Specimen Type: BLOOD SPECIMENOrdering Facility: [facility] Address:[address] [place], [place] [address]Performed By: #### 01668-5 ####[facility] LABCLIA [id number] [place], [place] [address]Hhniosy [Mass/Vol]7.6 g/dL Normal6.3-8.0[facility] on above:Order Comment: Specimen Type: BLOOD SPECIMENOrdering Facility: [facility] Address:[address] [place] [address]Rjtrzyabk By: #### 89128-4 ####[facility] LABCLIA [id number] [place] [address] Sodium [Moles/Vol]133 mmol/HMur528-694ArknijirrMercy Health Fairfield Hospital on above:Order Comment: Specimen Type: BLOOD SPECIMENOrdering Facility: [facility] Address:[address] [place], [place] [address]Performed By: #### 51437-8 ####[facility] LABCLIA [id number] [place], [place] [address]Nlzt nitrogen [Mass/Vol]7 mg/dLNormal7-21[facility] HospitalComment on above:Order Comment: Specimen Type: BLOOD SPECIMENOrdering Facility: [facility] Address:[address] [place], [place] [address]Performed By: #### 06912-1 ####[facility] LABCLIA [id number] [place], [place] [address]Bbvyavbg SerPl-mCncon 33-97-1080Ebfakosm [Mass/Vol]99.6 ng/uHJkrlqx12.7-205.1CMercy Memorial HospitalComselect specialty hospital-[place] on above:Order Comment: Specimen Type: BLOOD SPECIMENOrdering Facility: [facility] Address:[address] [place], [place] [address]Performed By: #### 2276-4, 68343-8, 9, 3016-3 ####[facility] LABCLIA [id number] [place] [address] [place] AMERICAIron and Iron binding capacity panelon 87-94-6677Bdka [Mass/Vol]72 ug/hYFtlbgi47-747ZuxlomahiMemorial Health System [facility] Hospital Comment on above:Order Comment: Specimen Type: BLOOD SPECIMENOrdering Facility: [facility] Address:[address] [place] [address] Performed By: #### 2276-4, 06809-2, 9, 3016-3 ####[facility] LABCLIA [id number] [place] [address] [place] AMERICAIron binding capacity [Mass/Vol]399 ug/fRPegf251-969InspmuclzMemorial Health System Selby General HospitalComselect specialty hospital-[place] on above:Order Comment: Specimen Type: BLOOD SPECIMENOrdering Facility: [facility] Address:[address] [place], [place] [address]Performed By: #### 2276-4, 43332-1, 2131-12, 6-3 ####[facility] LABCLIA [id number] [address] [address] [place] [facility] HOSPITALIron/TIBC [Molar ratio]18.0 % Btokqt95.0-57.0[facility] on above:Order Comment: Specimen Type: BLOOD SPECIMENOrdering Facility: [facility] Address:[address] [place] [address] [place] [id number] By: #### 2276-4, 24087-5, 2131-12, 6-3 ####[facility] LABIA [id number] [place] [address] [facility] CENTERTSMoreno Valley Community Hospital 10-28-2024 Thyroid Stimulating (3Rd Generation) Hormone/ Tsh1.25[facility] SerPl-aCncon 69-88-4848SSH Qn1.250 m[IU]/LNormal 0.270-4.200[facility] on above:Order Comment: Specimen Type: BLOOD SPECIMENOrdering Facility: [facility] Address:[address] [place] [address] [place], [place] [address]Result Comment: If the patient is , TSH reference range varies by gestational period: First Trimester (weeks 9-12): 0.180-2.990 mIU/L Second Trimester: 0.110-3.980 mIU/L Third Trimester: 0.480-4.710 mIU/L Danny Varela et al. A Practical Approach for the Verifications and Determination of Site- and Trimester-Specific Reference Intervals for Thyroid Function tests in . Thyroid, 2019:29:3:412-420.Saeed E, et al. 2017 Guidelines of the [place] Thyroid Association for the Diagnosis and Management of Thyroid Disease during and the . Thyroid, 2017:27:3:315-389. Performed By: #### 2276-4, 07158-3, 9, 6-3 ####[facility] LABCLIA [id number] [address] [address] [facility]ICAL CENTERVit B12 SerPl-mCncon 62-74-1034Rmjtqtlmi (Vitamin B12) [Mass/Vol]483 pg/vJEwowzf652-3950XtzxprzzdNorwalk Memorial Hospital on above: Order Comment: Specimen Type: BLOOD SPECIMENOrdering Facility: [facility] Address:[address] [place], [place] [address]Performed By: #### 2276- 4, 42642-2, 2132-9, 3016-3 ####[facility] LABCLIA [id number] [facility] [id number] [place], [place] [address] [facility] OF AMERICACNPNon 77-31-0118UODLIxtidxzeo (HEMASA) SANNA RENDON ([id number]) 1985 F Date Time Provider Department 10/24/24 [...] Date Reviewed: 08/26/2024 Reviewed by: Katherine Negrete APRN.SETTER UP - Fully Assessed Reason for Visit: Lab [...] 05/28/2024 Encounter Status:Closed by KAUR DUNHAM on 10/24/24[facility] OB TRANSVAGINALon 35-09-2485DD OB TRANSVAGINALEXAM: US OB TRANSVAGINAL HISTORY: Viability, [...] II, MD, PHD at 21-Oct-2024 08:31:21 AM [facility]-[place] TeleradiologyNormalNot AvailableComment on above:Order Comment: US OB VIABILITY PLEASE PERFORM TRANSVAGINAL ULTRASOUND IF INDICATED No LMP recorded.ALL CBC WITH AUTO DIFFon 07-91-0055DLQIBVAIT ABSOLUTE IPID4RAAF HealthcareBasophils/100 WBC (Bld)0.2 %0.2 - 2.0 %NOMS [...] HealthcareMCHC (RBC) [Mass/Vol] 34.6 g/dL29.9 - 35.2 g/dLNOOK HealthcareMCV (RBC) [Entitic vol]86.2 fL81.0 - 99.0 fLNOMS HealthcareMONOCYTES ABSOLUTE AUTO0.6NOMS HealthcareMonocytes/100 WBC (Bld)7.2 %1.7 - 12.0 %NOMS HealthcareNEUTROPHILS ABSOLUTE AUTO5.6NOMissouri Baptist Medical Center Neutrophils/100 WBC (Bld)62.8 %43.0 - 75.0 %NOMS HealthcarePlatelet mean volume (Bld) [Entitic vol]10.1 fL9.5 - 13.5 fLNOMissouri Baptist Medical CenterTB EO #0NOMissouri [facility] Center TBH OSH329HQSXOzarks Medical Center RBC4.42NOMissouri Baptist Medical CenterTB WBC8.9NOMissouri Baptist Medical Center CLINISYNCDrug Screen, Urineon 50-01-3004Kgbgmlggfyi/MethamphetamineNegative [facility] Hospitaledica Health SystemBarbituratesNegativeSt. Albans HospitalMedica Health System BenzodiazepinesNegativeProMedica Health SystemCocaine MetaboliteNegative Pro[facility] Health SystemEcstasyNegativeSt. Albans HospitalMedica Health SystemMethadoneNegative [facility] Hospitaledica Health SystemOpiatesNegativeSt. Albans HospitalMedica Health SystemOxycodoneNegative [facility] Hospitaledica Health SystemPhencyclidineNegativeSt. Albans HospitalMedica Health SystemThc Marijuana, UrineNegativeUniversity Hospitals Cleveland Medical Centerca Health SystemHBV surface Ag IA Qlon 10-06-2024 Hepatitis B Surface AntigenNegativeThe [facility] Hospital SystemHIV 1+2 Ab+HIV1 p24 Ag IA Qlon 57-23-1990WNU 1&2 AB/AGNegativeThe [facility] Hospital SystemHemoglobin A1con 17-59-8411HsB3e (Bld) [Mass fraction]5.9 %4.0 - 6.0 %[facility] SystemNo Panel Informationon 83-76-0024EWVN HealthcareTSHon 38-42-3694Gdgfsyc Stimulating (3Rd Generation) Hormone/ Tsh1.131[facility] SystemType and screenon 45-49-0081Wgb/Rh(D)NegativeProCleveland Clinic Euclid HospitalHCG ( test) Ql (U)on 40-61-1764Aqapulrgujizjk and review of laboratory resultsAbnormalParkland Health Center Preg Test, UrPositiveNegativeCooper County Memorial Hospital HealthcareUrinalysis macro (dipstick) panel (U)on 00-06-4803Zoqvdukra, UANegativeNegative - 4(70) +++ mg/dL NOMS HealthcareBlood, [...] - 12 mg/dLNOMS HealthcareNOMS HealthcareUS OB TRANSVAGINALon 46-01-6847[place] [address] Ultrasound Report Signed Patient: SANNA RENDON MR#: [id number] : 1985 Acct:[id number] Age/Sex: 38 / F ADM Date: 09/11/24 Loc: US Attending Dr: Wilton Herrmann D.O. Ordering Physician: Wilton Herrmann D.O. Date of Service: 09/11/24 Procedure(s): US OB transvaginal Accession Number(s): [id number] cc: Wilton Herrmann D.O.; PENELOPE CASAS [place] [id number] Patient Name: SANNA RENDON MRN: [id number] date: 1985 Sex: F Assigned Patient Location: US Current Patient Location: US Accession/Order Number: [id number] Exam Date: 09/11/2024 11:34 Report Date: 09/11/2024 [...] Montano M.D. 09/11/2024 11:36 AM Dictation Location: [place] [address] Electronically authenticated by: [id number] Y Date: 09/11/2024 11:36 Dictated By: Prudence Montano M.D. Signed By: 09/11/24 1138 DD/ 1136 TD/TT: Nurses Supervisor:TBHRadiology, Radiologist, MD - 09/11/2024 [place] [address] Ultrasound Report Signed Patient: SANNA RENDON MR#: [id number] : 1985 Acct:[id number] Age/Sex: 38 / F ADM Date: 09/11/24 Loc: US Attending Dr: Wilton Herrmann D.O. Ordering Physician: Wilton Herrmann D.O. Date of Service: 09/11/24 Procedure(s): US OB transvaginal Accession Number(s): [id number] cc: Wilton Herrmann D.O.; PENELOPE CASAS [address] [address] Patient Name: SANNA RENDON MRN: [id number] date: 1985 Sex: F Assigned Patient Location: US Current Patient Location: US Accession/Order Number: [id number] Exam Date: 09/11/2024 11:34 Report Date: 09/11/2024 [...] Montano M.D. 09/11/2024 11:36 AM Dictation Location: [place] [address] Electronically authenticated by: [id number] Y Date: 09/11/2024 11:36 Dictated By: Prudence Montano M.D. Signed By: 09/11/24 1138 DD/ 1136 TD/TT: Nurses Supervisor: SHILOH HealthcareRadiology Study observation (narrative)[facility] OB TRANSVAGINALOrdered By: Radiologist Radiology on 74-18-0895TKGZ Healthcare Work Phone: bhcg Quanton 66-89-5919IGI.beta subunit Lc63834 m[IU]/mLHigh1-3[facility] Medical CenterComment on above:Result Comment: 'F NON < 1 - 3' ' 0.2 - 1 WEEK = 5 TO 50' ' 1 - 2 WEEKS = 50 - 500' ' 2 - 3 WEEKS = 100 - 5000' ' 3 - 4 WEEKS = 500 - 68040' ' 4 - 5 WEEKS = 1000 - 92377' ' 5 - 6 WEEKS = 70086 - 321859' ' 6 - 8 WEEKS = 25623 - 789731' ' 8 - 12 WEEKS = 94583 - 765000'Performed By: #### [id number] #### [facility] [address] [place], [place] [address]Kbcmpjsnmk Visit Summaryon 98-74-7513Pgpsdfhmxs Visit Summary Ambulatory Visit Summary SANNA RENDON [...] fluticasone nasal (Flonase 0.05 mg/inh [place]) levothyroxine (levothyroxine 25 mcg (0.025 mg) Tab) [...] With: Penelope CASAS DO, FAAFP Where: [facility] [address], [place] [address]- Medications What How Much When Instructions Unchanged [...] choosing us for your care. [facility] Medicine Office/Clinic Noteon [id number] Medicine Office/[facility] Chief Complaint [...] created with voice recognition software. Occasional wrong-word or???qveho-n-veve??? substitutions may have occurred due to the [...] days ago on Sunday. Has been using ombd-irv-btfwwpm cough drops and Flonase for her allergies. [...] duration. Discussed antibiotics un (more content not included)...[facility] FoundationComment on above:Result Comment: Electronically Signed By: Aram QUINTEROS, Romulo Lynn\.br\Date and Time Signed: 09/07/2509:46 EDTCNPNon [id number] (HEMASA) SANNA RENDON ([id number]) 1985 F Date Time Provider Department 09/02/24 [...] Date Reviewed: 08/26/2024 Reviewed by: Katherine Negrete APRN.SETTER UP - Fully Assessed Reason for Visit: Patient [...] 05/28/2024 Encounter Status:Closed by RACHAEL JOHNSON on 09/03/24[facility] Quanton 89-93-1487BCI.beta subunit Qn558 m[IU]/mLHigh1-3[facility] CenterComment on above:Result Comment: 'F NON < 1 - 3' ' 0.2 - 1 WEEK = 5 TO 50' ' 1 - 2 WEEKS = 50 - 500' ' 2 - 3 WEEKS = 100 - 5000' ' 3 - 4 WEEKS = 500 - 09420' ' 4 - 5 WEEKS = 1000 - 70883' ' 5 - 6 WEEKS = 65676 - 487005' ' 6 - 8 WEEKS = 88376 - 174990' ' 8 - 12 WEEKS = 38712 - 020681'Performed By: #### [id number] #### [facility] [address], [place] [address]KfFB Quanton 34-74-0945LHT.beta subunit Qn188 m[IU]/mLHigh1-3 [facility] CenterComment on above:Result Comment: 'F NON < 1 - 3' ' 0.2 - 1 WEEK = 5 TO 50' ' 1 - 2 WEEKS = 50 - 500' ' 2 - 3 WEEKS = 100 - 5000' ' 3 - 4 WEEKS = 500 - 87434' ' 4 - 5 WEEKS = 1000 - 61321' ' 5 - 6 WEEKS = 37036 - 999125' ' 6 - 8 WEEKS = 19778 - 004830' ' 8 - 12 WEEKS = 42938 - 716552'Performed By: #### [id number] #### 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] Malaise and fatigue [R53.81, R53.83] Vitamin D deficiency [E55.9] Order(s):COMPLETE BLOOD COUNT AND DIFFERENTIAL [SQCBCDIF] Order #: [id number] FUTURE COMPREHENSIVE METABOLIC PANEL [SQCMP] Order #: [id number] FUTURE THYROID STIMULATING HORMONE [SQTSH] Order #: [id number] FUTURE IRON AND TIBC [SQIRON] Order #: [id number] FUTURE FERRITIN [SQFERR] Order #: [id number] FUTURE VITAMIN D 25 HYDROXY [SQVITD] Order #: [id number] FUTURE VITAMIN B12 [SQB12] Order #: [id number] FUTURE Prescriptions as of 08/26/2024 - enoxaparin [...] 05/28/2024 Encounter Status:Closed by KATHERINE NEGRETE on 08/26/24[facility] Quant[place] 16-13-1128FOW.beta subunit Qn83 m[IU]/mLHigh1-3FCommunity Regional Medical CenterComment on above:Result Comment: 'F NON < 1 - 3' ' 0.2 - 1 WEEK = 5 TO 50' ' 1 - 2 WEEKS = 50 - 500' ' 2 - 3 WEEKS = 100 - 5000' ' 3 - 4 WEEKS = 500 - 10791' ' 4 - 5 WEEKS = 1000 - 13841' ' 5 - 6 WEEKS = 87003 - 920229' ' 6 - 8 WEEKS = 45079 - 388900' ' 8 - 12 WEEKS = 93438 - 872456'Performed By: #### [id number] #### [facility] [address], [place] [address]LfIF Quanton 29-69-7855UYH.beta subunit Qn22 m[IU]/mLHigh1-3 [facility] CenterComment on above:Result Comment: 'F NON < 1 - 3' ' 0.2 - 1 WEEK = 5 TO 50' ' 1 - 2 WEEKS = 50 - 500' ' 2 - 3 WEEKS = 100 - 5000' ' 3 - 4 WEEKS = 500 - 10314' ' 4 - 5 WEEKS = 1000 - 47832' ' 5 - 6 WEEKS = 51691 - 054035' ' 6 - 8 WEEKS = 69889 - 348443' ' 8 - 12 WEEKS = 19561 - 099914'Performed By: #### [id number] #### [facility] [address], [place] [address]MVXESLFIPDaqspaa By: SYSTEM SYSTEM on 38-07-2431FDM.beta subunit Qn22 m[IU]/mLHigh1 - 3 mIU/mLRemisol ChemComment on above:Result Comment: 'F NON < 1 - 3' ' 0.2 - 1 WEEK = 5 TO 50' ' 1 - 2 WEEKS = 50 - 500' ' 2 - 3 WEEKS = 100 - 5000' ' 3 - 4 WEEKS = 500 - 09335' ' 4 - 5 WEEKS = 1000 - 84005' ' 5 - 6 WEEKS = 37976 - 775391' ' 6 - 8 WEEKS = 66228 - 991477' ' 8 - 12 WEEKS = 68294 - 691848'TSH Qn1.86 m[IU]/LNormal0.34 - 5.60 mcIU/mLRemisol ChemTSHon 66-47-8515KED Qn1.86 m[IU]/LNormal0.34-5.60St. [facility] Medical CenterComment on above:Performed By: #### [id number] #### [facility] [address], [place] [address]MFG ( test) Ql (U)on 13-90-6869Dugjtzjqlshsxs and review of laboratory resultsNoGuthrie ClinicPreg Test, UrNegativeNegative [facility].Interpretation:on 91-78-4070RMB Ab IA QlComment Invalid Interpretation [facility] GeneralComment on above:Result Comment: Not infected with HCV unless early or acute infection is suspected (which may be delayed in an immunocompromised individual), or other evidence exists to indicate HCV infection. Performed at: [address] [id number] PhD Jd Garciaformed By: #### [id number] #### [facility] [address], [place] [address]DDB Antibody RFX to Quant PCRon 09-39-0522IXP Ab IA Ql Non-ReactiveInvalid Interpretation CodeNon ReactiveSt. Mary'S Medical Center Comment on above:Result Comment: Performed at: [address] [id number] PhD Jd Garciaformed By: #### [id number] #### [facility] [address], [place] [address]JQG Screen 4th Generation wRfxon 29-53-8242UHF 1+2 Ab+HIV1 p24 Ag IA QlNon-ReactiveInvalid Interpretation CodeNon ReactiveSt. Mary'S Medical CenterComment on above:Result Comment: HIV-1/HIV-2 antibodies and HIV-1 p24 antigen were NOT detected. There is no laboratory evidence of HIV infection. HIV Negative Performed at: [address] [id number] PhD Jd Garciaformed By: #### [id number] #### [facility] [address], [place] [address]Izb Be Agon 78-00-6869KDO e Ag IA QlNegativeInvalid Interpretation CodeNegativeSt. Mary'S Medical CenterComment on above:Result Comment: Performed at: [address] [id number] PhD Jd Garciaformed By: #### [id number] #### [facility] [address], [place] [address]Zbi Bs Agon 21-25-3502VPB surface Ag IA QlNegativeInvalid Interpretation CodeNegativeSt. Mary'S Medical CenterComment on above:Result Comment: Performed at: [address] [id number] PhD Jd Garciaformed By: #### [id number] #### [facility] [address], [place] [address]GOXGZGRKQVpwqsgt By: SYSTEM SYSTEM on 05-63-6630Jlfance [Mass/Vol]5.0 g/dLNormal3.3 - 5.0 gm/dLRemisol ChemAlbumin/Globulin [Mass ratio] 1.6 {ratio}Normal1.1 - 2.2Remisol ChemALP [Catalytic activity/Vol]49 [iU]/d Cnaqhb54 - 98 Int._Unit/LRemisol ChemALT No additional P-5'-P [Catalytic activity/Vol]18 [iU]/dNormal6 - 46 Int._Unit/LRemisol ChemAnion gap [Moles/Vol] 13 mmol/LNormal6 - 16 mEq/LRemisol ChemAST [Catalytic activity/Vol]15 [iU]/d Normal5 - 43 Int._Unit/LRemisol ChemBilirubin [Mass/Vol]0.4 mg/dLNormal0.0 - 1.1 mg/dLRemisol ChemCalcium [Mass/Vol]10.0 mg/dLNormal8.9 - 11.1 mg/dLRemisol Chem Chloride [Moles/Vol]100 mmol/RYph491 - 111 mmol/LRemisol ChemCO2 [Moles/Vol]25 mmol/QKzjvoo22 - 31 mmol/LRemisol ChemCreatinine [Mass/Vol]0.7 mg/dLNormal0.5 - 1.3 mg/dLRemisol HbeeaKQY506 mL/min/1.73 g9Gcxgrs>=59mL/min/1.73 j7Nyfzuvx Chem Globulin (S) [Mass/Vol]3.1 g/dLNormal1.4 - 4.0 gm/dLRemisol ChemGlucose [Mass/Vol]82 mg/nEZauiuy49 - 199 mg/dLRemisol ChemPotassium [Moles/Vol]3.8 mmol/LNormal3.5 - 5.3 mmol/LRemisol ChemProtein [Mass/Vol]8.1 g/dLHigh6.0 - 7.8 gm/dLRemisol ChemSodium [Moles/Vol]134 mmol/KBjf152 - 145 mmol/LRemisol ChemUrea nitrogen [Mass/Vol]7 mg/dLNormal5 - 21 mg/dLRemisol ChemUrea nitrogen/Creatinine [Mass ratio]10 mg/jcAxrysn30 - 20Remisol ChemCMPon 14-05-5107Nckxndx [Mass/Vol]5.0 g/dLNormal3.3-5.0[facility] Comment on above:Performed By: #### [id number] #### [facility] [address], [place] [address]Elimhcx/Globulin (S) [Mass conc ratio]1.3Ylichq1.1-2.2FCommunity Regional Medical CenterComment on above:Performed By: #### [id number] #### [facility] [address] [place] [address]PJP [Catalytic activity/Vol]49 Int._Unit/FYkeznm19-77JfjvkkSt. Mary'S Medical CenterComment on above:Performed By: #### [id number] #### [facility] [address], [place] [address]SYO No additional P-5'-P [Catalytic activity/Vol]18 Int._Unit/L Normal6-46St. [facility]'S Medical CenterComment on above:Performed By: #### [id number] #### [facility] [address] [place] [address]Hidit gap [Moles/Vol]13 mmol/LNormal6-16St. [facility]'S Medical CenterComment on above:Performed By: #### [id number] #### [facility] [address] [place] [address] 656[address]AZO [Catalytic activity/Vol]15 Int._Unit/LNormal5-43St. [facility]'S Medical CenterComment on above:Performed By: #### [id number] #### [facility] [address] [place] [address] 77[address]Efrfezhkt [Mass/Vol]0.4 mg/dLNormal0.0-1.1FCommunity Regional Medical CenterComment on above:Performed By: #### [id number] #### [facility] [address] [place] [address] 817[address]Wmhhinv [Mass/Vol]10.0 mg/dLNormal8.9-11.1FCommunity Regional Medical CenterComment on above:Performed By: #### [id number] #### [facility] [address] [place] [address] 25[address]Sezalrpo [Moles/Vol]100 mmol/OGip169-838YbxvwkSt. Mary'S Medical CenterComment on above:Performed By: #### [id number] #### [facility] [address] [place] [address] 19073TL7 [Moles/Vol]25 mmol/RZvvnsg21-21HawclgSt. Mary'S Medical Center Comment on above:Performed By: #### [id number] #### [facility] [address], [place] [address]Mcyxtbstok [Mass/Vol]0.7 mg/dLNormal0.5-1.3FCommunity Regional Medical CenterComment on above:Performed By: #### [id number] #### [facility] [address], [place] [address]Xhqbmmso (S) [Mass/Vol]3.1 g/dLNormal1.4-4.0St. [facility]'S Medical CenterComment on above:Performed By: #### [id number] #### [facility] [address], [place] [address]Iaykrrj [Mass/Vol]82 mg/cYCjvpfi19-433GlownmSt. Mary'S Medical CenterComment on above:Performed By: #### [id number] #### [facility] [address], [place] [address]Njrkcsmca [Moles/Vol]3.8 mmol/LNormal3.5-5.3FCommunity Regional Medical CenterComment on above:Performed By: #### [id number] #### [facility] [address], [place] [address]Jmvtlhk [Mass/Vol]8.1 g/dLHigh6.0-7.8St. [facility]'S Medical CenterComment on above:Performed By: #### [id number] #### [facility] [address], [place] [address]Oaxbzn [Moles/Vol]134 mmol/UBug854-218SdmarxSt. Mary'S Medical CenterComment on above:Performed By: #### [id number] #### [facility] [address], [place] [address]Nqon nitrogen [Mass/Vol]7 mg/dLNormal5-21St. [facility]'S Medical CenterComment on above:Performed By: #### [id number] #### [facility] [address], [place] [address]Emhi nitrogen/Creatinine [Mass ratio]10 No AaenzWzeahc26-06 St. [facility]'S Medical CenterComment on above:Performed By: #### [id number] #### [facility] [address] [place], [place] [address]pDFExo 39-60-6503mKXH789 mL/min/1.73 d3Taqcsa>=59Fishamadou [facility] Medical CenterComment on above:Performed By: #### [id number] #### [facility] [address] [facility] [place], [place] [address]Doiqah Medicine Office/Clinic Noteon 10-14-3504Sdjubd Medicine Office/Clinic NoteFami Medicine Office/Clinic Note HPI [...] RESENDEZ FAAFP, Penelope Tony, FAM, PED [address] [facility] [facility] [address], [place] [address]- Additional Instructions: Patient Education Bradycardia, [...] exam Historical Abdominal pain (more content not included)...[facility] Comment on above:Result Comment: Electronically Signed By: Inez Banegas\.br\Date and Time Signed: 07/08/24 08:54 EDTAmbulatory Visit Summaryon 12-11-2523Cccdxxsrxo Visit SummaryAmbulatory Visit Summary SANNA RENDON :1985 [...] mg Tab) fluticasone nasal (Flonase 0.05 mg/inh [place]) levothyroxine (levothyroxine 25 mcg (0.025 mg) Tab) [...] With: Penelope CASAS DO, FAAFP Where: [facility] [address] [place] [address]- You Need to Schedule the Following Appointments Follow Up with Penelope CASAS DO, FAAFP, FAM, PED When: Where: [address] [place] [address]- Medications What How Much When Why Instructions [...] choosing us for your care. [facility] FoundationBhG Quanton 72-53-8469YOC.beta subunit Qn1 m[IU]/mLNormal1-3[facility] CenterComment on above:Result Comment: 'F NON < 1 - 3' ' 0.2 - 1 WEEK = 5 TO 50' ' 1 - 2 WEEKS = 50 - 500' ' 2 - 3 WEEKS = 100 - 5000' ' 3 - 4 WEEKS = 500 - 45805' ' 4 - 5 WEEKS = 1000 - 87039' ' 5 - 6 WEEKS = 06828 - 472385' ' 6 - 8 WEEKS = 71173 - 619203' ' 8 - 12 WEEKS = 61348 - 808478'Performed By: #### [id number] #### [facility] [address], [place] [address]QELXD 2 Mutationson 49-49-6911JOKNF InterpretationSee Note [facility] ParkerComment on above:Result Comment: Indication for testing: Determine genetic contribution to hyperhomocysteinemia. 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 The [employer] Practice Guidelines indicate [...] a contributing factor to hyperhomocysteinemia. Variants Tested: c.665C>T(p.Kts736Ecz) and c.1286A>C(p.Dbw040Zxs). (legacy names C677T and G9507X, respectively). Clinical Sensitivity: Undefined; hyperhomocysteinemia is caused [...] developed and its performance characteristics determined by [facility]. It has not been cleared or approved by the [place] Food and Drug Administration. This test was performed in a CLIA certified laboratory and is intended for clinical purposes. Counseling and informed consent are recommended for genetic testing. Consent forms are available online. Performed By: [facility] [address] [place] [address] Sod Cutter: Yayo Moncada MD, PhD CLIA Number: [id number] Mutation: [id number]ventHealth ParkerMTHFR Mutation: X768UXefqgiqyTponcpWbllgAdventHealth Parker MTHFR PCR SpecimenWhole BloodNormGunnison Valley HospitalAnti-nuclear Ab (NASEEM) Reflexon 14-12-9323Tcfn-Nuclear Ab (NASEEM), IgG by ELISANot detectedNormal None DetMemorial Hospital NorthComment on above:Result Comment: If suspicion of connective tissue disease is strong and NASEEM EIA is negative, consider testing for NASEEM by IFA ([id number]). No antibodies to Anti-Nuclear Antibodies (NASEEM) detected. The Extractable Nuclear Antigen Antibodies (CUT OFF SAWYER SHINGLE MILL, Christianson, SSA 52, SSA 60, Scleroderma, Brianna-1 [...] dsDNA, histones, SS-A (Ro), SS-B (La), Christianson, Christianson/CUT OFF [place]ING[place] M[place], Scl-70, Brianna-1, centromeric proteins, other antigens extracted from the HEp-2 cell nucleus. NASEEM ALEX assays have been reported to have lower sensitivities than NASEEM IFA for systemic autoimmune rheumatic diseases (SARD). Negative results do not necessarily rule out SARD. Performed By: [facility] [address] [place] [address] Sod Cutter: Yayo Moncada MD, PhD CLIA Number: [id number]-1 (Histidyl-tRNA Synthetase) Ab, IgGon 27-92-8646Vw-1 (Histidyl-tRNA Synthetase) Ab, IgG0 AU/mLNormal0-40[facility] Comment on above:Result Comment: INTERPRETIVE INFORMATION: Brianna-1 Antibody, IgG 29 AU/mL or less.........Negative 30-40 AU/mL..............Equivocal 41 AU/mL or greater......Positive Presence of Brianna-1 (antihistidyl transfer RNA [t-RNA] synthetase) antibody is associated with polymyositis and may also be seen in patients with dermatomyositis. Brianna-1 antibody is associated with pulmonary involvement (interstitial lung disease), Raynaud phenomenon, arthritis, and heavy equipment field mechanic's hands (implicated in antisynthetase syndrome). Performed By: [facility] [address] [place], [place] [id number] Sod Cutter: Yayo Moncada MD, PhD CLIA Number: [id number] and SSB Abs, IgGon 38-80-5592NKE 52 (Ro) (KELLEN) Ab, IgG1 AU/mLNormal0-40[facility] HospitalComment on above:Result Comment: INTERPRETIVE INFORMATION: SSA-52 [...] interstitial lung disease.SSB (La) (KELLEN) Ab, IgG0 AU/mLNormal0-40[facility] Comment on above:Result Comment: INTERPRETIVE INFORMATION: [...] (PSS) also have this antibody. Performed By: [facility] [address] [id number] Sod Cutter: Yayo Moncada MD, PhD CLIA Number: [id number] Antibodies, IgG/IgMon 79-06-1286Sdqglquhalt Ab IgG95 GPLCritically high<=14[facility] HospitalComment on above: Result Comment: INTERPRETIVE INFORMATION: [...] other criteria phospholipid antibody tests. Performed by [facility], [address] [place] [address] www.[employer], Zhang Bledsoe MD, Lab. Director IA Number: [id number] Ab IgM<10Normal<=12[facility] HospitalComment on above:Result Comment: INTERPRETIVE INFORMATION: Anti- [...] other criteria phospholipid antibody tests. Performed by [facility], [address] [place] [address] www.[employer], Zhang Bledsoe MD, Lab. Director CLIA Number: [id number]-Hknji (Smooth Muscle) Antibody, IgAon 36-74-7071I-Actin Ab, IgA1.8 UnitsNormal0.0-24.9[facility] HospitalComment on above: Result Comment: INTERPRETIVE INFORMATION: F-Actin (Smooth Muscle)Antibody, IgA 20.0 Units or less.....Negative 20.1 - 24.9 Units......Equivocal 25.0 Units or greater..Positive The presence of IgA antibodies against F-Actin in patients having positive serologic markers for celiac disease, such as antiendomysial, anti-transglutaminase, and/or anti-gliadin peptide IgA, indicates the presence of intestinal villus atrophy. Positive results should be confirmed with biopsy. Performed By: [facility] [address] [place] [address] Sod Cutter: Yayo Moncada MD, PhD CLIA Number: [id number] Ab, IgG by ELISAon 67-94-8747xzEKK Ab, IgG by ALEX 4 IUNormal0-24[facility] HospitalComment on above:Result Comment: INTERPRETIVE INFORMATION: Double-Stranded DNA (dsDNA) Ab IgG ALEX 24 IU or less........Negative 25-30 IU.............Borderline Positive 30-60 IU.............Low Positive 60-200 IU............Positive 201 IU or greater....Strong Positive Positivity for anti-double stranded DNA (anti-dsDNA) IgG antibody is a diagnostic criterion of systemic lupus erythematosus (SLE). Specimens are initially screened by enzyme-linked immunosorbent assay (ALEX). If ordered as reflex ([id number]), positive ALEX results (>24 IU) will be [...] recommendations for testing may be found at [email or web address]. Performed by [facility], [address] [place] [address],[place] [address] www.[employer], Zhang Bledsoe MD, Lab. Director CLIA Number: [id number]-Axlrzael Proteinon 57-01-5119IOR [Mass/Vol]mg/LNormal 0.0-5.0[facility] HospitalComment on above:Performed By: #### CRP #### [facility] [address] [place] [address] Hzkhoyhlgtzia Rateon 18-92-6280Zvlxtwgcaijnl Rate18 mmNormal0-20 [facility] HospitalComment on above:Result Comment: ESR Units mm/Hr Performed By: #### ESR #### [facility] [address] [place] [address] Yzfqvi Medicine Office/Clinic Noteon 51-14-1679Bkvfub Medicine Office/Clinic NoteFavalley springs behavioral health hospital Medicine Office/Clinic Note Chief Complaint C/O: [...] # 90 tab(s), Refills(s) 4, Pharmacy: [facility], 168, cm, 06/30/24 8:36:00 EST, Height/Length Dosing, 97.2, kg, 06/30/24 8:36:00 EST, Weight Dosing Total time spent preparing the chart, conducting of the encounter with the patient and family and time spent documenting, reviewing, and ordering tests was 25 minutes. Follow-up With When Contact Information Penelope CASAS DO, FAAFP, CHRIS, PED In 2 months [address], [place] [address]- ([phone] (more content not included)...[facility] Comment on above:Result Comment: Electronically Signed By: Penelope CASAS DO, FAAFP\.br\Date and Time Signed: 06/30/24 09:24 ESTRECURRENT VAGINITIS (HTRX)on 21-85-0481JOLNSJLDD WRVQPMX3QDVJ HealthcareATOPOBIUM VAGINAENot detectedNOMS HealthcareBVAB 2,3 (BACTERIAL VAGINOSIS ASSOCIATED BACTERIA 2, 3); MOBILUNCUS WOW6SZFS HealthcareBVAB 2,3 (BACTERIAL VAGINOSIS ASSOCIATED BACTERIA 2, 3); MOBILUNCUS SPPNot detectedNOMS HealthcareCANDIDA ALBICANS, PARAPSILOSIS, AXHQVAFVSD1DQDC HealthcareCANDIDA ALBICANS, PARAPSILOSIS, TROPICALISNot detected NOMS HealthcareCANDIDA ILSOLTWE0OXNU HealthcareCANDIDA GLABRATANot detectedNOMS HealthcareCANDIDA ZIRJXF1EBJV HealthcareCANDIDA KRUSEINot detectedNOMS HealthcareCHLAMYDIA WXJNDEWEDQO9FNID HealthcareCHLAMYDIA TRACHOMATISNot detected NOMS HealthcareGARDNERELLA QAWPQEOUF1WEPL HealthcareGARDNERELLA VAGINALISNot detectedNOMS HealthcareMEGASPHAERA (TYPES 1, 2)0NOMS HealthcareMEGASPHAERA (TYPES 1, 2)Not detectedNOMS HealthcareMYCOPLASMA OVNDXLJRCC3QIQL Healthcare MYCOPLASMA GENITALIUMNot detectedNOMS HealthcareNEISSERIA BGFVVNNXZSQ1VGFF HealthcareNEISSERIA GONORRHOEAENot detectedNOMS HealthcareTRICHOMONAS VAGINALIS0 NOMS HealthcareTRICHOMONAS VAGINALISNot detectedNOMS HealthcareNOMS Healthcare Urinalysis macro (dipstick) panel (U)on 14-90-1938Ahoqcwqhs, UANegativeNegative - 4(70) +++ mg/dLNOMS HealthcareBlood, UANegativeNegative [...] - 12 mg/dLNOMS HealthcareNOMS HealthcareAmbulatory Visit Summaryon 65-48-6783Hbubefghii Visit SummaryAmbulatory Visit Summary SANNA RENDON :1985 [...] fluticasone nasal (Flonase 0.05 mg/inh [place]) levothyroxine (levothyroxine 25 mcg (0.025 mg) Tab) [...] With: Penelope CASAS DO, FAAFP Where: [facility] [address] [place] [address] [place] [address]- Medications What How Much When Why Instructions New azithromycin (Zithromax 250 mg Tab) 1 Packets By Mouth As Directed Sinusitis Duration: 5 Days Refills: 1 as directed on package labeling Pickup at [facility] New fluconazole (Diflucan 150 mg Tab) 1 Tablets By Mouth Every 7 days Yeast infection Refills: [address] [facility] 1985 Unchanged enoxaparin (Lovenox 40 [...] if questions or concerns Pharmacy Information [facility]: [address] [place] [phone] Allergies Milk Products (Illness) ciprofloxacin (Numbness and [...] choosing us for your care. [facility] Medicine Office/Clinic Noteon 04-13-3267Xdsugd Medicine Office/Clinic NoteJamaica Plain [facility] Medicine Office/Clinic Note Chief Complaint [...] # 6 tab(s), Refills(s) 1, Pharmacy: [facility] 1985, 168, cm, 06/09/24 14:03:00 EST, Height/Length Dosing, 98.4, kg, 06/19/24 16:19:00 EST, Weight Dosing Yeast infection (B37.9: Candidiasis, unspecified) Ordered: fluconazole, 150 mg = 1 tab(s), Oral, q7day, # 4 tab(s), Refills(s) 1, Pharmacy: [facility], 168, cm, 06/09/24 14:03:00 [...] Oral, q7day, 1 refills Flonase 0.05 mg/inh [place], 2 spray(s), Nasal, Daily, 11 refills levothyroxine [...] Patient Refuses influe (more content not included)...NormalSt. Mary'S Medical CenterComment on above:Result Comment: Electronically Signed By: MANDI BRYANT\.br\Date and Time Signed: 06/19/24 16:37 ESTCBC w/ Auto Diffon 06-12-2024 Basophils/100 WBC (Bld)0.3 %Normal0.0-2.0St. [facility]'S Medical CenterComment on above:Performed By: #### [id number] #### [facility] [address], [place] [address]Azeuwldnu/Leukocytes Auto (Bld) [Pure # fraction]0.0 E9/LNormal 0.0-0.2FCommunity Regional Medical CenterComment on above:Performed By: #### [id number] #### [facility] [address], [place] [address]Aevmvlxmaso (Bld) [#/Vol]0.0 E9/LNormal0.0-0.5FCommunity Regional Medical CenterComment on above:Performed By: #### [id number] #### [facility] [address], [place] [address]Mlidoanptce/100 WBC (Bld)0.3 %Normal0.0-8.0St. Mary'S Medical CenterComment on above:Performed By: #### [id number] #### [facility] [address], [place] 30767Zjemkgkhcqg distribution width (RBC) [Ratio]14.0 %Normal 10.9-14.2FCommunity Regional Medical CenterComment on above:Performed By: #### [id number] #### [facility] [address] [place] [address] 98290Fvjdalfhym (Bld) [Volume fraction]40.9 %Jrzxfs43.0-46.0St[facility]S Medical CenterComment on above:Performed By: #### [id number] #### [facility] [address] [place] [address] 97483Qhhyxzwisa (Bld) [Mass/Vol]13.9 g/vXFregat90.0-16.0[facility] Medical CenterComment on above:Performed By: #### [id number] #### [facility] [address] [place] [address] 02167Jqougoqrvkj (Bld) [#/Vol]2.8 E9/LNormal1.0-4.0[facility] Medical CenterComment on above:Performed By: #### [id number] #### [facility] [address] [place] [address] 10064Wdrlszgsaiv/100 WBC (Bld)24.6 %Gxwtva78.0-50.0[facility] Medical CenterComment on above:Performed By: #### [id number] #### [facility] [address] [place] [address] 36750OHN (RBC) [Entitic mass]30.7 ouKptudv09.0-34.0St[facility] Medical CenterComment on above:Performed By: #### [id number] #### [facility] [address] [place] [address] 60063AAVE (RBC) [Mass/Vol]33.9 g/wABmaevj02.4-36.0[facility] Medical CenterComment on above:Performed By: #### [id number] #### [facility] [address] [place] [address] 87160ISM (RBC) [Entitic vol]90.6 eMXoqqds98.0-100.0St[facility] Medical CenterComment on above:Performed By: #### [id number] #### [facility] [address] [place] [address] 59399Qltxyjxkr (Bld) [#/Vol]0.6 E9/LNormal0.2-1.0[facility] Medical CenterComment on above:Performed By: #### [id number] #### [facility] [address] [place] [address] 91725Kxrwyialqrr (Bld) [#/Vol]8.0 E9/LHigh2.0-7.5FCommunity Regional Medical CenterComment on above:Performed By: #### [id number] #### [facility] [address] [place] [address] 99247Qvjyyxeqwgg/100 WBC (Bld)69.6 %Wnayus76.0-75.0[facility] Medical CenterComment on above:Performed By: #### 6244517 #### [facility] [address] [place] [address] 74550Xeveyqbc116.0 E9/QUjnrsc927.0-500.0[facility] Comment on above:Performed By: #### 2538911 #### [facility] [address] [place] [address] 45249Ynmzzqjr mean volume (Bld) [Entitic vol]8.2 fLNormal6.4-10.8 [facility] Medical CenterComment on above:Performed By: #### 2553052 #### [facility] [address] [place] [address] 19830ACZ (Bld) [#/Vol]4.5 E12/LNormal4.3-5.9[facility] Medical CenterComment on above:Performed By: #### 0823301 #### [facility] [address], [place] [address]BGU corrected for nucl RBC Auto (Bld) [#/Vol]11.5 E9/LHigh 4.0-11.0[facility] Medical CenterComment on above:Performed By: #### [id number] #### [facility] [address], [place] [address]UEYNKXLWVNCymecni By: SYSTEM SYSTEM on 22-43-8446Eddjlyxbp/100 WBC (Bld)0.3 %Normal0.0 - 2.0 %Remisol HemeBasophils/Leukocytes Auto (Bld) [Pure # fraction]0.0 E9/LNormal0.0 - 0.2 E9/LRemisol HemeEosinophils (Bld) [#/Vol]0.0 E9/LNormal0.0 - 0.5 E9/LRemisol HemeEosinophils/100 WBC (Bld)0.3 %Normal0.0 - 8.0 %Remisol HemeErythrocyte distribution width (RBC) [Ratio]14.0 %Qncvus79.9 - 14.2 %Remisol HemeHematocrit (Bld) [Volume fraction]40.9 %Glwbgi27.0 - 46.0 % Remisol HemeHemoglobin (Bld) [Mass/Vol]13.9 g/dJQeoprw90.0 - 16.0 gm/dLRemisol HemeLymphocytes (Bld) [#/Vol]2.8 E9/LNormal1.0 - 4.0 E9/LRemisol Heme Lymphocytes/100 WBC (Bld)24.6 %Gvledx36.0 - 50.0 %Remisol HemeMCH (RBC) [Entitic mass]30.7 nhMhvwdd64.0 - 34.0 pgRemisol HemeMCHC (RBC) [Mass/Vol]33.9 g/dL Bloivz95.4 - 36.0 gm/dLRemisol HemeMCV (RBC) [Entitic vol]90.6 aEBnzcdf94.0 - 100.0 fLRemisol HemeMonocytes (Bld) [#/Vol]0.6 E9/LNormal0.2 - 1.0 E9/LRemisol HemeMonocytes/100 WBC (Bld)5.2 %Normal4.0 - 14.0 %Remisol HemeNeutrophils (Bld) [#/Vol]8.0 E9/LHigh2.0 - 7.5 E9/LRemisol HemeNeutrophils/100 WBC (Bld)69.6 % Polprk27.0 - 75.0 %Remisol TzbxQgotbtlb669.0 E9/FJkxett160.0 - 500.0 E9/LRemisol HemePlatelet mean volume (Bld) [Entitic vol]8.2 fLNormal6.4 - 10.8 fLRemisol HemeRBC (Bld) [#/Vol]4.5 E12/LNormal4.3 - 5.9 E12/LRemisol HemeWBC corrected for nucl RBC Auto (Bld) [#/Vol]11.5 E9/LHigh4.0 - 11.0 E9/LRemisol HemeAmbulatory Visit Summaryon 93-39-4452Tfugayrrkq Visit SummaryAmbulatory Visit Summary SANNA RENDON :1985 Visit Date:06/09/2024 Ambulatory Visit Instructions Your Diagnosis Antiphospholipid antibody with hypercoagulable state H/O: CVA Gestational diabetes BMI 35.0-35.9,adult Morbid obesity Your Care Team Attending Physician - Penelope CASAS DO, FAAFP Primary Care Physician - Penelope CASAS DO, FAAFP This Is Your Medications List fluticasone nasal (Flonase 0.05 mg/inh [place]) Contact prescribing physician if questions or concerns [...] With: Penelope CASAS DO, FAAFP Where: [facility] [address], [facility] [place] [address]- Medications What How Much When Instructions New fluticasone nasal (Flonase 0.05 mg/ inh [place]) 2 Sprays Nasal Inhalation Every day Refills: 11 each nostril Pickup at [facility]/pharmacy #[id number] Unchanged enoxaparin (Lovenox 40 mg/ 0.4 [...] physician if questions or concerns Pharmacy Information [facility]/pharmacy #[id number]: [address] [place], [place] [phone] Allergies Milk Products (Illness) ciprofloxacin (Numbness and [...] for your care. NormalFisher University Of Maryland St. Joseph Medical CenterBhCG Quanton 40-62-2130ZNG.beta subunit Qn2 m[IU]/mLNormal1-3Fisher [facility] Medical CenterComment on above:Result Comment: 'F NON < 1 - 3' ' 0.2 - 1 WEEK = 5 TO 50' ' 1 - 2 WEEKS = 50 - 500' ' 2 - 3 WEEKS = 100 - 5000' ' 3 - 4 WEEKS = 500 - 33870' ' 4 - 5 WEEKS = 1000 - 77888' ' 5 - 6 WEEKS = 00356 - 893273' ' 6 - 8 WEEKS = 64571 - 847160' ' 8 - 12 WEEKS = 08707 - 421988'Performed By: #### [id number] #### [facility] [address], [place] [address]XQXTIUZGHSthciwk By: SYSTEM SYSTEM on 95-74-1249WDB Qn1.97 m[IU]/LNormal0.34 - 5.60 mcIU/mLRemisol ChemFamily Medicine Office/Clinic Noteon 63-64-9289Ggftvp Medicine Office/Clinic NoteFamily Medicine Office/Clinic Note Chief [...] from inside ear, not outside Moved from [place] Review of Systems PHQ Score Initial Depression [...] Antiphospholipid syndrome) [facility] Department of hematology/oncology following and treating with Lovenox, please see their consultation 05/28/2024. Treats with Lovenox 40 mg subcu every 24 hours 2. H/O: CVA (Z86.79: Personal history of other diseases of the circulatory system) Please see #1. 3. Gestational diabetes (O24.419: Gestational diabetes mellitus in , unspecified control) RESEARCH AND DEVELOPMENT TESTER, [facility] following. Metformin XR 500 mg tabs [...] PED In 6 months [address] [place] [address]- [phone] (more content not included)...[facility] Clinic FoundationComment on above:Result Comment: Electronically Signed By: Penelope CASAS DO, FAAFP\.br\Date and Time Signed: 06/09/24 14:24 ESTTSHon 40-78-4597KDW Qn1.97 m[IU]/LNormal0.34-5.60[facility] Medical CenterComment on above:Performed By: #### [id number] #### [facility] [address] [place], [place] [address]KiAM Quanton 77-68-6098EWS.beta subunit Qn6 m[IU]/mLHigh1-3 [facility] CenterComment on above:Result Comment: 'F NON < 1 - 3' ' 0.2 - 1 WEEK = 5 TO 50' ' 1 - 2 WEEKS = 50 - 500' ' 2 - 3 WEEKS = 100 - 5000' ' 3 - 4 WEEKS = 500 - 74689' ' 4 - 5 WEEKS = 1000 - 73731' ' 5 - 6 WEEKS = 83788 - 586685' ' 6 - 8 WEEKS = 13617 - 052147' ' 8 - 12 WEEKS = 60710 - 089249'Performed By: #### [id number] #### [facility] [address] [place], [place] [address]([place])[address] [facility] 424535-tcwgycpgzdlcbx D3 [Mass/Vol] 27.8 ng/mLLow31.0-80.0[facility] General HospitalComment on above:Order Comment: Specimen Type: BLOOD SPECIMENOrdering Facility: [facility] Address:[address], [place] [address]Qxdbsm Comment: Classification of 25 [place] Vitamin D status: Deficiency/Insufficiency: < or = 30 ng/ml. Sufficiency/Optimal Levels: 31-80 ng/mL Toxicity: > 100 ng/mL. Test performed by chemiluminescent immunoassay.Performed By: #### 1989-3 ####[facility] LABCLIA [id number] [facility] [id number] Auto Differential panel (Bld)on 51-51-4543Rqifnivwq (Bld) [#/Vol]0.03 10*3/uLNormal<0.11CNorwalk Memorial Hospital on above:Order Comment: Specimen Type: BLOOD SPECIMENOrdering Facility: [facility] Address:[address] [place], [place] [address]Performed By: #### 76814-6 ####[facility] LABCLIA [id number] [place], [place] [address]Nsbbawuhx/100 WBC (Bld)0.4 % NormalMercy Health Fairfield Hospital on above:Order Comment: Specimen Type: BLOOD SPECIMENOrdering Facility: [facility] Address:[address] [place], [place] [address]Performed By: #### 12636-4 ####[facility] LABCLIA [id number] [place] [address] Differential cell count method Nom (Bld)AutoNormalCMercy Memorial Hospital Comment on above:Order Comment: Specimen Type: BLOOD SPECIMENOrdering Facility: [facility] Address:[address] [place] [address] Performed By: #### 90079-1 ####[facility] LABIA [id number] [place], [place] [address]Smdapbddkud (Bld) [#/Vol]0.08 10*3/uLNormal<0.46[facility] on above:Order Comment: Specimen Type: BLOOD SPECIMENOrdering Facility: [facility] Address:[address] [place], [place] [address]Performed By: #### 98396-3 ####[facility] LABCLIA [id number] [place], [place] [address]Yjvjaeqdzws/100 WBC (Bld)0.9 %NormalMercy Health Fairfield Hospital on above:Order Comment: Specimen Type: BLOOD SPECIMENOrdering Facility: [facility] Address:[address] [place], [place] [address]Performed By: #### 48840-7 ####[facility] LABIA [id number] [place], [place] [address]Fsmosndaffh distribution width (RBC) [Ratio]13.8 %Epuuvg79.5-15.0[facility] on above: Order Comment: Specimen Type: BLOOD SPECIMENOrdering Facility: [facility] Address:[address] [place], [place] [address]Performed By: #### 83629- 8 ####[facility] LABIA [id number] [place], [place] [address]Nzbetndmeo (Bld) [Volume fraction]34.0 %Low36.0-46.0 [facility] on above:Order Comment: Specimen Type: BLOOD SPECIMENOrdering Facility: [facility] Address:[address] [place], [place] [address]Performed By: #### 76872-4 ####[facility] LABIA [id number] [place], [place] [address]Fksislkksf (Bld) [Mass/Vol]11.5 g/yMJlsolv80.5-15.5CNorwalk Memorial Hospital on above: Order Comment: Specimen Type: BLOOD SPECIMENOrdering Facility: [facility] Address:[address] [place], [place] [address]Performed By: #### 39091- 8 ####[facility] LABIA [id number] [place], [place] [address]Fpkmsuas granulocytes (Bld) [#/Vol]0.03 10*3/uLNormal <0.10[facility] on above:Order Comment: Specimen Type: BLOOD SPECIMENOrdering Facility: [facility] Address:[address] [place], [place] [address]Performed By: #### 20263-5 ####[facility] LABCLIA [id number] [place], [place] [address]Absoupcx granulocytes/100 WBC (Bld)0.4 %NormalMercy Health Fairfield Hospital on above: Order Comment: Specimen Type: BLOOD SPECIMENOrdering Facility: [facility] Address:[address] [place], [place] [address]Performed By: #### 12348- 8 ####[facility] LABCLIA [id number] [place], [place] [address]Mkktfqsmcel (Bld) [#/Vol]2.86 10*3/uLNormal1.00-4.00 [facility] on above:Order Comment: Specimen Type: BLOOD SPECIMENOrdering Facility: [facility] Address:[address] [place], [place] [address]Performed By: #### 09386-8 ####[facility] LABCLIA [id number] [place], [place] [address]Jgkbuujodpp/100 WBC (Bld)33.4 %NormalMercy Health Fairfield Hospital on above:Order Comment: Specimen Type: BLOOD SPECIMENOrdering Facility: [facility] Address:[address] [place], [place] [address]Performed By: #### 27015-6 ####[facility] LABCLIA [id number] [place], [place] [address]YOP (RBC) [Entitic mass]30.8 teGiulyt33.0-34.0[facility] on above:Order Comment: Specimen Type: BLOOD SPECIMENOrdering Facility: [facility] Address:[address] [place], [place] [address]Performed By: #### 20474-1 ####[facility] LABCLIA [id number] [place], [place] [address]ESES (RBC) [Mass/Vol]33.8 g/yWAcqezi58.5-36.0[facility] on above: Order Comment: Specimen Type: BLOOD SPECIMENOrdering Facility: [facility] Address:[address] [place], [place] [address]Performed By: #### 27141- 8 ####[facility] LABCLIA [id number] [place], [place] [address]VFY (RBC) [Entitic vol]91.2 xTBfmxtz07.0-100.0[facility] on above:Order Comment: Specimen Type: BLOOD SPECIMENOrdering Facility: [facility] Address:[address] [place], [place] [address]Performed By: #### 15808-5 ####[facility] LABIA [id number] [place], [place] [address]Vfzlzimbd (Bld) [#/Vol]0.66 10*3/uLNormal<0.87[facility] on above:Order Comment: Specimen Type: BLOOD SPECIMENOrdering Facility: [facility] Address:[address] [place], [place] [address]Performed By: #### 58120- 8 ####[facility] LABIA [id number] [place], [place] [address]Tmexcgvjo/100 WBC (Bld)7.7 %NormalMercy Health Fairfield Hospital on above:Order Comment: Specimen Type: BLOOD SPECIMENOrdering Facility: [facility] Address:[address] [place], [place] [address]Performed By: #### 72183-4 ####[facility] LABIA [id number] [place], [place] [address]Fxbjnckbuws (Bld) [#/Vol]4.90 10*3/uLNormal1.45-7.50[facility] on above:Order Comment: Specimen Type: BLOOD SPECIMENOrdering Facility: [facility] Address:[address] [place], [place] [address]Performed By: #### 36504-6 ####[facility] LABCLIA [id number] [place], [place] [address]Hjqlwmcdams/100 WBC (Bld)57.2 %NormalMercy Health Fairfield Hospital on above:Order Comment: Specimen Type: BLOOD SPECIMENOrdering Facility: [facility] Address:[address] [place], [place] [address]Performed By: #### 83115-8 ####[facility] LABCLIA [id number] [place], [place] [address]Dbheaqstl RBC (Bld) [#/Vol] 10*3/uLNormal<0.01[facility] on above:Order Comment: Specimen Type: BLOOD SPECIMENOrdering Facility: [facility] Address:[address] [place], [place] [address]Performed By: #### 69938-1 ####[facility] LABCLIA [id number] [place], [place] [address]Amixfmowl RBC/100 WBC (Bld) [Ratio]0.0 /100 WBCNormal [facility] on above:Order Comment: Specimen Type: BLOOD SPECIMENOrdering Facility: [facility] Address:[address] [place], [place] [address]Performed By: #### 34803-3 ####[facility] LABCLIA [id number] [place], [place] [address]Csxwksoy mean volume (Bld) [Entitic vol]9.6 fLNormal9.0-12.7CNorwalk Memorial Hospital on above:Order Comment: Specimen Type: BLOOD SPECIMENOrdering Facility: [facility] Address:[address] [place] [address] Performed By: #### 84382-4 ####[facility] LABCLIA [id number] [place], [place] [address]Qscthiool (Bld) [#/Vol]345 10*3/aGPdpymg947-492UamojboyzMercy Health Fairfield Hospital on above:Order Comment: Specimen Type: BLOOD SPECIMENOrdering Facility: [facility] Address:[address] [place], [place] [address]Performed By: #### 57127-2 ####[facility] LABIA [id number] [place], [place] [address]PJP (Bld) [#/Vol]3.73 10*6/uLLow3.90-5.20[facility] on above:Order Comment: Specimen Type: BLOOD SPECIMENOrdering Facility: [facility] Address:[address] [place], [place] [address]Performed By: #### 36522-3 ####[facility] LABIA [id number] [place], [place] [address]POF (Bld) [#/Vol]8.56 10*3/uL Normal3.70-11.00[facility] on above:Order Comment: Specimen Type: BLOOD SPECIMENOrdering Facility: [facility] Address:[address] [place], [place] [address]Performed By: #### 65344-6 ####[facility] LABIA [id number] [place], [place] [address]BDCSQXvl 90-00-4618BHXDNTAftvu (SP) Office (HEMASA) SANNA RENDON ([id number]) 1985 F Date Time Provider Department 05/28/24 1:00 PM ABHYANKAR, KRISTOFER HEMASA During your visit today, we recorded the following information about you: Temperature Pulse Respiration Blood pressure 97.6 degrees 72/minute 16/minute 123/83 Weight Height 98.5 kg 1.677 m Kristofer Calix MD 05/29/2024 9:13 AM Signed NAME: Sanna Rendon CLINIC NO.: [id number] DATE OF SERVICE: May 28, 2024 (Levon) [...] later in 2018. These were found in [place], [place]. I don't have access to these [...] soon. When she had a stroke in [place], she had symptoms up to a month [...] having trouble losing weight. (more content not included)...NormalMemorial Health System Selby General HospitalCNPNon 05-28-2024 CNPNTelephone (NCCAP) SANNA RENDON ([id number]) 1985 F Date Time Provider Department 05/28/24 [...] 05/28/2024 Encounter Status:Closed by TAYLOR ESCUDERO on 05/28/24NormalClevelCritical access hospitalComprehensive metabolic 2000 panelon 21-00-1835Wjrijwn [Mass/Vol]4.4 g/dLNormal3.9-4.9ClevelCritical access hospitalComment on above:Order Comment: Specimen Type: BLOOD SPECIMENOrdering Facility: [facility] Address:[address] [place] [address] [place] [id number] By: #### 05881-5 ####[facility] LABCLIA [id number] [place] [address]NTK [Catalytic activity/Vol]59 U/DEnxtkz20-339AptuyaihiMercy Health Fairfield Hospital on above:Order Comment: Specimen Type: BLOOD SPECIMENOrdering Facility: [facility] Address:[address] [place], [place] [address]Performed By: #### 02645-9 ####[facility] LABCLIA [id number] [place], [place] [address]XTZ [Catalytic activity/Vol]12 U/LNormal7-38[facility] on above:Order Comment: Specimen Type: BLOOD SPECIMENOrdering Facility: [facility] Address:[address] [place], [place] [address]Performed By: #### 41810- 8 ####[facility]ALK[facility] LABCLIA [id number] [place] DUMONTNORTHWEST MEDICAL C[place]TEET[place], [place] [address]Tooqq gap [Moles/Vol]10 mmol/LNormal8-15[facility] on above:Order Comment: Specimen Type: BLOOD SPECIMENOrdering Facility: [facility] Address:[address] [place], [place] [address]Performed By: #### 25086-3 ####[facility] LABCLIA [id number] [place], [place] [address]ZMI [Catalytic activity/Vol]11 U/CKem77-91BqlluzjmgMercy Health Fairfield Hospital on above:Order Comment: Specimen Type: BLOOD SPECIMENOrdering Facility: [facility] Address:[address] [place], [place] [address]Performed By: #### 11952-7 ####[facility] LABCLIA [id number] [place] [address] Bilirubin [Mass/Vol]0.2 mg/dLNormal0.2-1.3CNorwalk Memorial Hospital on above:Order Comment: Specimen Type: BLOOD SPECIMENOrdering Facility: [facility] Address:[address] [place], [place] [address]Performed By: #### 64354-9 ####[facility] LABCLIA [id number] [place], [place] [address]Aafiyeu [Mass/Vol]9.7 mg/dLNormal8.5-10.2CNorwalk Memorial Hospital on above:Order Comment: Specimen Type: BLOOD SPECIMENOrdering Facility: [facility] Address:[address] [place], [place] [address]Performed By: #### 92859-3 ####[facility] LABCLIA [id number] [place], [place] [address]Wlcxnvnk [Moles/Vol]99 mmol/HSlcyhn64-563LzehpfxkvMercy Health Fairfield Hospital on above:Order Comment: Specimen Type: BLOOD SPECIMENOrdering Facility: [facility] Address:[address] [place], [place] [address]Performed By: #### 77815- 8 ####[facility] LABCLIA [id number] [place], [place] [address]RV3 [Moles/Vol]25 mmol/AWsxmhl87-79DsyfagsvuMercy Health Fairfield Hospital on above:Order Comment: Specimen Type: BLOOD SPECIMENOrdering Facility: [facility] Address:[address] [place], [place] [address]Performed By: #### 23497-5 ####[facility] LABCLIA [id number] [place], [place] [address]Lxkbyqtsph [Mass/Vol]0.71 mg/dL Normal0.58-0.96[facility] on above:Order Comment: Specimen Type: BLOOD SPECIMENOrdering Facility: [facility] Address:[address] [place], [place] [address]Performed By: #### 70193-6 ####[facility] LABCLIA [id number] [place], [place] [address]Erlkzmkxfy and Glomerular filtration rate.predicted panel (S/P/Bld)112 mL/min/1.73m???Normal>=60[facility] on above:Order Comment: Specimen Type: BLOOD SPECIMENOrdering Facility: [facility] Address:[address] [place] [address]Tzkrpt Comment: Estimated Glomerular Filtration Rate (eGFR) is [...] not accurately reflect actual GFR.Performed By: #### 25483-7 ####[facility] LABCLIA [id number] [place], [place] [address]Kijsxwk [Mass/Vol]79 mg/rOXgwwar32-36HhaoznrwrMercy Health Fairfield Hospital on above:Order Comment: Specimen Type: BLOOD SPECIMENOrdering Facility: [facility] Address:[address] [place] [address]Efedwq Comment: The [place] Diabetes Association (ADA) provides guidance for cutoff [...] Standards of Medical Care in Diabetes 2016, [place] [employer]. Diabetes Care. 2016.39(Suppl 1).Performed By: #### 61750-3 ####[facility] LABCLIA [id number] [place], [place] [address]Wtnhkqhnx [Moles/Vol]4.0 mmol/LNormal3.7-5.1CNorwalk Memorial Hospital on above:Order Comment: Specimen Type: BLOOD SPECIMENOrdering Facility: [facility] Address:[address] [place], [place] [address]Performed By: #### 59441-3 ####[facility] LABCLIA [id number] [place], [place] [address]Nalihgy [Mass/Vol]7.1 g/dLNormal6.3-8.0[facility] on above:Order Comment: Specimen Type: BLOOD SPECIMENOrdering Facility: [facility] Address:[address] [place], [place] [address]Performed By: #### 55388- 8 ####[facility] LABCLIA [id number] [place], [place] [address]Edoqif [Moles/Vol]134 mmol/FCwx105-450QxeknlpquMercy Health Fairfield Hospital on above:Order Comment: Specimen Type: BLOOD SPECIMENOrdering Facility: [facility] Address:[address] [place], [place] [address]Performed By: #### 50598-9 ####[facility] LABCLIA [id number] [place], [place] [address]Izet nitrogen [Mass/Vol]8 mg/dL Normal7-21[facility] on above:Order Comment: Specimen Type: BLOOD SPECIMENOrdering Facility: [facility] Address:[address] [place], [place] [address]Performed By: #### [id number] ####[facility] LABCLIA [id number] [place] [address] Ferritin SerPl-mCncon [id number] [Mass/Vol]73.8 ng/mCKhmlbs70.7-205.1 [facility] on above:Order Comment: Specimen Type: BLOOD SPECIMENOrdering Facility: [facility] Address:[address] [place], [place] [address]Performed By: #### 91598-4, 2276-4, 3016-3 ####[facility] LABCLIA [id number] [place] [address] [place] OF AMERICAFolate SerPl-mCncon [id number] [Mass/Vol] ng/mLNormal>4.7CNor[facility] on above:Order Comment: Specimen Type: BLOOD SPECIMENOrdering Facility: [facility] Address:[address] [place], [place] [address]Result Comment: A result of > 20 ng/mL is not necessarily indicative of a pathologic or treatable condition: it reflects a limitation of the test methodology. Assay reference range: 4.8 to 24.2 ng/mL. Suitable for detection of folate deficiency. Reference: Folate III (Folate III) [package insert V 1.0 Micronesian]. [facility], [place], [place]: February 2015.Performed By: #### 2132-9, 2284-8 ####[facility] LABCLIA [id number] [place] [address] [place] OF AMERICAIron and Iron binding capacity panelon 05-28-2024 Iron [Mass/Vol]68 ug/jRGgjyxe83-324BbbmlxxdfMercy Health Fairfield Hospital on above: Order Comment: Specimen Type: BLOOD SPECIMENOrdering Facility: [facility] Address:[address] [place], [place] [address]Performed By: #### 25901- 8, 2276-4, 3016-3 ####[facility] LABCLIA [id number] [place] [address] [place] OF AMERICAIron binding capacity [Mass/Vol]367 ug/wHJzlpeg870-262WdcsfrtfxMercy Health Fairfield Hospital on above: Order Comment: Specimen Type: BLOOD SPECIMENOrdering Facility: [facility] Address:[address] [place], [place] [address]Performed By: #### 67108- 8, 6-4, 3016-3 ####[facility] LABCLIA [id number] [place] [address] [place] OF AMERICAIron/TIBC [Molar ratio]18.5 %Tfhoax80.0-57.0[facility] on above:Order Comment: Specimen Type: BLOOD SPECIMENOrdering Facility: [facility] Address:[address] [place], [place] [address]Performed By: #### 39792- 8, 6-4, 3016-3 ####[facility] LABCLIA [id number] [place] [address] [place] [facility] HOSPITALTS SerPl-aCncon 09-20-3146YDB Qn2.940 m[IU]/LNormal0.270-4.200[facility] on above:Order Comment: Specimen Type: BLOOD SPECIMENOrdering Facility: [facility] Address:[address] [place], [place] [address]Result Comment: If the patient is , TSH reference range varies by gestational period: First Trimester (weeks 9-12): 0.180-2.990 mIU/L Second Trimester: 0.110-3.980 mIU/L Third Trimester: 0.480-4.710 mIU/L Danny Varela et al. A Practical Approach for the Verifications and Determination of Site- and Trimester-Specific Reference Intervals for Thyroid Function tests in . Thyroid, 2019:29:3:412-420.Saeed E, et al. 2017 Guidelines of the [place] Thyroid Association for the Diagnosis and Management of Thyroid Disease during and the . Thyroid, 2017:27:3:315-389. Performed By: #### 57729-1, 4, 3015-3 ####[facility] LABCLIA [id number] [place] [id number] [place] OF [facility] HOSPITALVit B12 SerPl-mCncon 14-45-6540Nycupzmij (Vitamin B12) [Mass/Vol]487 pg/vGElhijb743-8630SdlrjyxbnNorwalk Memorial Hospital on above:Order Comment: Specimen Type: BLOOD SPECIMENOrdering Facility: [facility] Address:[address] [place], [place] [address]Performed By: #### 2132-9, 2284-8 ####[facility] LABCLIA [id number] [facility] [id number] [place] [address] [place] DETW[facility] MEMORIAL HOSPITALBhCG Quanton 52-59-6755QCP.beta subunit Qn101 m[IU]/mLHigh1-3Fisher [facility] Medical CenterComment on above:Result Comment: 'F NON < 1 - 3' ' 0.2 - 1 WEEK = 5 TO 50' ' 1 - 2 WEEKS = 50 - 500' ' 2 - 3 WEEKS = 100 - 5000' ' 3 - 4 WEEKS = 500 - 68301' ' 4 - 5 WEEKS = 1000 - 20081' ' 5 - 6 WEEKS = 82019 - 347240' ' 6 - 8 WEEKS = 37563 - 642344' ' 8 - 12 WEEKS = 33560 - 131617'Performed By: #### [id number] #### [facility] [address] [place], [place] [address]BPUCOU V LEIDEN MUTATIONon 69-23-9658HBM FACTOR V LEIDEN MUTATIONComment.[facility] HealthcareComment on above:Result: c.1601G>A (p.Joq269Ayv) - Not Detected This result is not associated with an increased risk for venous thromboembolism. See Additional Clinical Information and Comments. Additional Clinical Information: Venous thromboembolism is a multifactorial disease influenced by genetic, environmental, and circumstantial risk factors. The c.1601G>A (p. Fso840Ezh) variant in the F5 gene, commonly referred [...] c.*97G>A variant and Factor V Leiden (PMID: 99260077). Additional risk factors include but are not [...] health care providers to discuss results at [phone]-[phone] (8650). Test Details: Variant Analyzed: c.1601G>A (p. Qvc900Enn), referred to as Factor V Leiden Methods/Limitations: [...] developed and its performance characteristics determined by [facility]. It has not been cleared or approved by the Food and Drug Administration. References: Jomar Tian, Loren BLANDON, Thiago R, Solo WW, Jose JH; ACMG Professional Practice and Guidelines Committee. Addendum: [place] [employer] consensus statement on factor V Leiden mutation testing. Nisha Med. 2020Jul 02. doi: 10.1038/w12868-754-87147-e. PMID: 66286627. Naina POWERS. Factor V Leiden Thrombophilia. 1998September 10 (Updated 2017May 03). In: Emeterio MP, Radha HH, Clayton RA, et al., editors. Cassie(R) (Internet). [place] ([place]): [facility], [place]; 8968-6723. Available from: https://www.ncbi.nlm.nih.gov/books/CBL9947/ Hudson Tian, Loren BLANDON, Trent X, Margarito B, Jo-Ann EB, Lena P, Rhiannon CS; A[employer]G Laboratory Material Liaison Committee. Venous thromboembolism laboratory testing (factor V Leiden and factor II c.*97G>A), 2018 update: a technical standard of the [place] [employer] and Genomics (ACMG). Nisha Med. 2018 Mar;20(12):1915-9310. doi: 10.1038/p17854-491-8532-u. Epub 2017Feb 01. PMID: 08914234. [facility] REVIEWED BYComment.NOMS HealthcareComment on above:Technical Component performed at [facility] Professional Component performed by: [employer] [facility] Treatment CenterModulus Video Rosa Isela Lee, Ph.D., [facility] Director, Molecular Genetics [address] [facility] Performed at: - [facility] [address] [facility], [place], [place] [id number] Survey And Mapping Technician: Kolton Storm [facility], Phone: [phone] [facility] [phone] (HEMASA) SANNA RENDON ([id number]) 1985 F Date Time Provider Department 05/14/24 [...] for deficiency. She is aware if her charge entry specialist or PCP request any additional testing, we [...] Date Reviewed: 04/28/2024 Reviewed by: Katherine Negrete APRN.SETTER UP - Fully Assessed Reason for Visit: Patient [...] 08/01/2022 Encounter Status:Closed by RACHAEL JOHNSON on 05/14/24[facility] MISCELLANEOUS TESTon 65-15-9066YHTHTOIIRWXEL TESTCOMMENT.NOMS HealthcareComment on above:Test Ordered: [id number] , ID Ab Cytomegalovirus (CMV) Ab, IgG [...] 0.9 - 1.1 Positive >1.1 Performed at: [address] [id number] Survey And Mapping Technician: Dusty Miles PhD, Phone: [phone] Performed at: [address] [id number] Survey And Mapping Technician: China Ching MD, Phone: [phone] , Infectious Disease Antibody Profile CLINISYNCNOMS HealthcareNo Panel Informationon 09-49-3190HFBUOYCRYNDTE HealthcarePROTEIN C-FUNCTIONALon 33-43-8745HFRMUYV C-KBEBOIMJXV930 %73 - 180 % NOMS HealthcareComment on above:Performed at: [address] [id number] Survey And Mapping Technician: China Ching MD, Phone: [phone] PROTEIN S-ANTIGENon 79-84-0495NLKHHVG S, PLJW708 %61 - 136 %[facility] PROTEIN S, TOTAL96 %60 - 150 %NOMS HealthcareComment on above:This test was developed and its performance characteristics determined by [facility]. It has not been cleared or approved by the Food and Drug Administration. [facility] ANTITHROMBIN ACTIVITYon 04-21-8315Kuevnxryuikron and review of laboratory resultsAbnormalNortheast Regional Medical Center ANTITHROMBIN HCZSQMFS751 %Bquwsxmv55 - 135 % NOMS HealthcareComment on above:An elevated antithrombin activity is of no known clinical significance. Direct Xa inhibitor anticoagulants such as rivaroxaban, apixaban and edoxaban will lead to spuriously elevated antithrombin activity levels possibly masking a deficiency. Performed at: [address] [id number] Survey And Mapping Technician: China Ching MD, Phone: [phone] ALL IMMUNOGLOBULIN Koffi 31-90-9215RBV IMMUNOGLOBULIN G, QN913 mg/dL586 - 1602 mg/dLNOOK HealthcareComment on above:Performed at: [address] [id number] Survey And Mapping Technician: Dusty Miles PhD, Phone: [phone] ALL IMMUNOGLOBULIN Mon 05-73-7105ZUQ IMMUNOGLOBULIN M, Q177 mg/dL26 - 217 mg/dL NOM HealthcareComment on above:Performed at: [address] [id number] Survey And Mapping Technician: Dusty Miles PhD, Phone: [phone] METRO HOMOCYSTEINEon 96-48-3978UBHIFSLS(E)INE5.8 umol/L0.0 - 14.5 umol/LNOMS HealthcareNo Panel Informationon 92-69-3561CGFVYTHXVBQKP HealthcareALL CBC WITH AUTO DIFFon 59-02-1462VWIXPZKHW ABSOLUTE UBGP8WOHH HealthcareBasophils/100 WBC (Bld)0.2 %0.2 - 2.0 %NOMS HealthcareEosinophils/100 WBC (Bld)0.7 %Low0.9 - 7.0 % NOMS HealthcareErythrocyte distribution width (RBC) [Ratio]13 %11.0 - 15.0 %NOMS HealthcareHematocrit (Bld) [Volume fraction]35.6 %Low36.0 - 48.0 %[facility] Health CenterHemoglobin (Bld) [Mass/Vol]12.3 g/dL12.0 - 16.0 g/dLParkland Health Center IMMATURE GRANULOCYTES ABS AUTO0.04HighNOMissouri Baptist Medical CenterImmature granulocytes/100 WBC (Bld)0.4 %0.0 - 0.5 %[facility] CenterInterpretation and review of laboratory resultsAbnormalNOOK HealthcareLYMPHOCYTES ABSOLUTE AUTO2.5NOMS [facility] Lymphocytes/100 WBC (Bld)26.1 %20.5 - 60.0 %[facility] Region Medical CenterH (RBC) [Entitic mass]31 pg26.7 - 34.0 pgNOCox BransonHC (RBC) [Mass/Vol]34.6 g/dL29.9 - 35.2 g/dLParkland Health CenterMCV (RBC) [Entitic vol]89.7 fL81.0 - 99.0 fLParkland Health Center MONOCYTES ABSOLUTE AUTO0.6NOMS HealthcareMonocytes/100 WBC (Bld)6 %1.7 - 12.0 % [facility] CenterNEUTROPHILS ABSOLUTE AUTO6.3NOMS HealthcareNeutrophils/100 WBC (Bld)66.6 %43.0 - 75.0 %[facility] Health CenterPlatelet mean volume (Bld) [Entitic vol] 9.9 fL9.5 - 13.[address] Vincent HospitalTBH EO #0.1NOMS [address] Vincent HospitalTB JTC823MSJU St. Vincent HospitalTB RBC3.97LowNOMS St. Vincent HospitalTB WBC9.4NOMS St. Vincent HospitalCLINISYNCNSaint John's Regional Health CenterCC APTTon 60-44-1432aVLD Coag (Bld) [Time]28.5 [facility] HospitalLon 05-10-2024L Specimen: [id number] Received: 05/12/24-120 Status: BALDOMERO Andrade Num: [id number] Spec Type: Surgical Subm Dr: Wilton Herrmann Tissues: A Placenta - Other than 3rd Trimester (14 WK PLACENTA) Procedures: HE/3, Gross/Micro L4 Age/ Patient Sex Location Account Attending Physician Sanna Rendon 38/F [place] [id number] Wilton Herrmann SPEC NUM: [id number] RECD: 05/12/24-1209 STATUS: BALDOMERO ANDRADE NUM: [id number] AMARILYS: 05/10/24- SUBM DR: Wilton Herrmann ENTERED: 05/12/24-[address] [facility] [address]: Yao Pickett SPEC TYPE: Surgical DEPT: [facility] ENTERED BY: [id number] RECV BY: [id number] ORDERED: HE/3, Gross/Micro L4 ORDERED: HE/3, Gross/Micro [...] BS25-17 Received: 05/12/24 Status: BALDOMERO Andrade Num: [id number] Spec Type: Surgical Subm Dr: Wilton Herrmann Tissues: A Placenta - Other than 3rd Trimester (14 WK PLACENTA) Procedures: DEION/Ramone, Gross/Micro L4 Patient: Inez,Katie [id number] (Continued) Specimen: [id number] Received: 05/12/24 (Continued) Gross Description (Continued) Signed (signature on file) Vivi Hill MD 05/13/24 1605 Specimen: [id number] Received: 05/12/24 Status: JUSTINEBrittany Andrade Num: [id number] Spec Type: Surgical Subm Dr: Wilton Herrmann Tissues: A Placenta - Other than 3rd Trimester (14 WK PLACENTA) Procedures: /3, Gross/Micro L4 Patient: Sanna Rendon [id number] (Continued) Specimen: [id number] Received: 05/12/24 (Continued) Gross [...] and uniform. Cassettes: A1 Rolled membrane A2-A3 Enrobing Machine Corder sections of placenta (3, ss, BS25-17 A) JosselynG . CPT Codes 43325 Specimen: [id number] Received: 05/12/24 Status: BALDOMERO Andrade Num: [id number] Spec Type: Surgical Subm Dr: Wilton Herrmann Tissues: A Placenta - Other than 3rd Trimester (14 WK PLACENTA) Procedures: DEION/Ramone, Gross/Micro L4 Patient: LizandroSanna [id number] (Continued) Signed (signature on file) Vivi Hill MD 05/13/[address] [place] [address] Physician GroupMHPT FIBRINOGENon 05-10-2024 IZCEIQOELS286 mg/dL200 - 400 mg/dLNOMissouri Baptist Medical CenterNo Panel Informationon 45-69-9230HDZVFFRGDRTCQ HealthcareSRMCOH PROTHROMBIN TIME INR W/O COUMon 00-33-1997CH Coag (PPP) [Time]10.3 sNSaint Mary's [facility] INR0.97[facility] Comment on above:DESIRED INR: 2.0-3.0 CONDITIONS NOT LISTED BELOW 2.5-3.5 FOR PROSTHETIC HEART VALVE REPLACEMENT 2.5-3.5 RECURRENT THROMBOSIS US PELVISon 58-41-6860[place]ab[place] [address] Ultrasound Report Signed Patient: SANNA RENDON MR#: [id number] : 1985 Acct:[id number] Age/Sex: 38 / F ADM Date: Loc: [facility] 258-[address]: Wilton Herrmann D.O. Ordering Physician: Wilton Herrmann D.O. Date of Service: 05/10/24 Procedure(s): US pelvis Accession Number(s): [id number] cc: Wilton Herrmann D.O.; PENELOPE CASAS [place] [phone] Patient Name: SANNA RENDON MRN: TBH:[id number] date: 1985 Sex: F Assigned Patient Location: [facility] Current Patient Location: [facility] Accession/Order Number: [id number] Exam Date: 05/10/2024 14:36 Report Date: 05/10/2024 [...] M.D. Signed By: 05/10/241603 DD/ 01 TD/TT: Nurses Supervisor:ELVERadiology, Radiologist, - 05/10/2024 [place] [address] Ultrasound Report Signed Patient: SANNA RENDON MR#: [id number] : 1985 Acct:[id number] Age/Sex: 38 / F ADM Date: Loc: [facility] 258-[address]: Wilton Herrmann D.O. Ordering Physician: Wilton Herrmann D.O. Date of Service: 05/10/24 Procedure(s): US pelvis Accession Number(s): [id number] cc: Wilton Herrmann D.O.; PENELOPE CASAS [place] [address] Patient Name: SANNA RENDON MRN: TBH:[id number] date: 1985 Sex: F Assigned Patient Location: [facility] Current Patient Location: [facility] Accession/Order Number: [id number] Exam Date: 05/10/2024 14:36 Report Date: 05/10/2024 [...] M.D. Signed By: 05/10/241603 DD/ 01 TD/TT: Nurses Supervisor: SHILOH HealthcareRadiology Study observation (narrative)SHILOH HealthcareUS PELVIS Ordered By: Radiologist Radiology on 77-71-2994NFJY Healthcare Work Phone: US for pregnancyon [phone] [place]ille [phone] Ultrasound Report Signed Patient: SANNA RENDON MR#: [id number] : 1985 Acct:[id number] Age/Sex: 38 / F ADM Date: Loc: [facility] 258-[address]: Wilton Herrmann D.O. Ordering Physician: Wilton Herrmann D.O. Date of Service: 05/10/24 Procedure(s): US OB limited Accession Number(s): [id number] cc: Wilton Herrmann D.O.; PENELOPE CASAS [address] [address] Patient Name: SANNA RENDON MRN: [id number] date: 1985 Sex: F Assigned Patient Location: [facility] Current Patient Location: [place] Accession/Order Number: [id number] Exam Date: 05/10/2024 08:30 Report Date: 05/10/2024 [...] M.D. Signed By: 05/10/24928 DD/ 5 TD/TT: Nurses Supervisor:ELVERadiologPacheco morales, - 05/10/2024 [place] [address] Ultrasound Report Signed Patient: SANNA RENDON MR#: [id number] : 1985 Acct:[id number] Age/Sex: 38 / F ADM Date: Loc: [facility] 258-[address]: Wilton Herrmann D.O. Ordering Physician: Wilton Herrmann D.O. Date of Service: 05/10/24 Procedure(s): US OB limited Accession Number(s): [id number] cc: Wilton Herrmann D.O.; PENELOPE CASAS [place] [address] Patient Name: SANNA RNEDON MRN: [facility]:[id number] date: 1985 Sex: F Assigned Patient Location: [facility] Current Patient Location: [place] Accession/Order Number: [id number] Exam Date: 05/10/2024 08:30 Report Date: 05/10/2024 [...] M.D. Signed By: 05/10/24928 DD/ 5 TD/TT: Nurses Supervisor: SHILOH HealthcareRadiology Study observation (narrative)NOMS HealthcareUS for pregnancyOrdered By: Radiologist Radiology on 63-86-1501UYPC Healthcare Work Phone: us OB TRANSVAGINALon 18-95-8669ID OB TRANSVAGINALTITLE OF EXAM: OB Ultrasound: REASON [...] period was 01/29/2024.Urinalysis macro (dipstick) panel (U)on 88-14-0448Blqdaclah, UANegativeNegative - 4(70) +++ mg/dLNOOK Healthcare Blood, UANegativeNegative - 50 Max/mcLNOOK HealthcareClarity, UAClearNOOK HealthcareColor, UAYellowNOOK HealthcareGlucose, UANegativeNegative - 2000(110) ++++ mg/dLNOOK HealthcareInterpretation and review of laboratory resultsNormal NOMS HealthcareKetones, UANegativeNegative - 160(16) ++++ mg/dLNOOK Healthcare Leukocytes, UANegativeNegative - 500+++ John/mcLNOOK HealthcareNitrite, UA NegativeNegative - PositiveNOMS HealthcarepH, UA65 - 9NOMS HealthcareProtein, UA NegativeNegative - 2000(20) ++++ mg/dLNOOK HealthcareSpec Grav, UA1.011 - 1.03 NOMS HealthcareUrobilinogen, UA0.20.2 - 12 mg/dLNOMS HealthcareNOMS Healthcare BOX TESTon 45-02-5266YCD TEST SENT OUTYNOMS DjicxvbiqvXPX1OOIGLCGNO Healthcare YRU11206/13/23NOMS HealthcareUNITY BOX CLINISYNCNOOK HealthcareTBH DRUG SCREEN RAPID (URINE)on 87-04-7399UJNDHCPHEXK SCREEN URINENegativeNEGATIVENOMS HealthcareBARBITURATES SCREEN URINENegative NEGATIVENOMS HealthcareBENZODIAZEPINES [...] TRICYCLIC ANTIDEPRESSANT URINENegativeNEGATIVENOMS HealthcareCLINISYNCNOMS HealthcareUS OB TRANSVAGINALon 04-40-2518Sco[place] [address] Ultrasound Report Signed Patient: Sanna Rendon MR#: [id number] : 1985 Acct:[id number] Age/Sex: 38 / F ADM Date: 04/04/24 Loc: [facility] Attending Dr: Wilton Herrmann D.O. Ordering Physician: Wilton Herrmann D.O. Date of Service: 04/04/24 Procedure(s): US OB transvaginal Accession Number(s): [id number] cc: Wilton Herrmann D.O.; PENELOPE CASAS [place] [phone] Patient Name: SANNA RENDON MRN: TBH:[id number] date: 1985 Sex: F Assigned Patient Location: [facility] Current Patient Location: Accession/Order Number: [id number] Exam Date: 04/04/2024 09:43 Report Date: 04/05/2024 [...] Signed By: 04/05/24 0442 DD/ 0439 TD/TT: Nurses Supervisor:TBHRadiology, Radiologist, MD - 04/05/2024 [place] [address] Ultrasound Report Signed Patient: Sanna Rendon MR#: [id number] : 1985 Acct:[id number] Age/Sex: 38 / F ADM Date: 04/04/24 Loc: [facility] Attending Dr: Wilton Herrmann D.O. Ordering Physician: Wilton Herrmann D.O. Date of Service: 04/04/24 Procedure(s): US OB transvaginal Accession Number(s): [id number] cc: Wilton Herrmann D.O.; PENELOPE CASAS [place] [phone] Patient Name: SANNA RENDON MRN: TBH:[id number] date: 1985 Sex: F Assigned Patient Location: [facility] Current Patient Location: Accession/Order Number: [id number] Exam Date: 04/04/2024 09:43 Report Date: 04/05/2024 [...] M.D. Signed By: 04/05/242 DD/ 8 TD/TT: Nurses Supervisor: SHILOH HealthcareRadiology Study observation (narrative)[facility] CenterUS OB TRANSVAGINALOrdered By: Radiologist Radiology on 13-74-4591SPPL [employer] Work Phone: HCG ( test) Ql (U)on 76-54-1918Wfpfbnhpniokof and review of laboratory resultsAbnormalNOMS HealthcarePreg Test, UrPositive NegativeNOMissouri Baptist Medical CenterNOOK HealthcareUrinalysis macro (dipstick) panel (U)on 18-32-2484Cegojtsge, UANegativeNegative - 4(70) +++ mg/dLNOMS HealthcareBlood, UANegativeNegative - 50 Max/mcLNOMS HealthcareClarity, UAClearNOMS Healthcare Color, UAYellowNOMS HealthcareGlucose, UANegativeNegative - 2000(110) ++++ mg/dL NOMS HealthcareInterpretation and review of laboratory resultsNormalNOOK HealthcareKetones, UANegativeNegative - 160(16) ++++ mg/dLNOMS Healthcare Leukocytes, UANegativeNegative - 500+++ John/mcLNOMS HealthcareNitrite, UA NegativeNegative - PositiveNOMS HealthcarepH, UA5.55 - 9NOMS HealthcareProtein, UANegativeNegative - 2000(20) ++++ mg/dLNOMS HealthcareSpec Grav, UA1.021 - 1.03 NOMS HealthcareUrobilinogen, UA1.00.2 - 12 mg/dLNOMS HealthcareNOMS HealthcareC Urineon 10-10-4471Gawirqwv identified Cx Nom (U)Microbiology PROCEDURE: Urine Culture [R1] SOURCE: U CleanCatch BODY SITE: COLLECTED DATE/TIME: 03/01/2024 10:30 EDT RECEIVED DATE/TIME: 03/01/2024 13:48 EDT START DATE/TIME: 03/01/2024 13:48 EDT FREE TEXT SOURCE: Wilton HERRMANN DO, DO, Corey R FINAL REPORTS Final Report [] Verified Date/Time: 03/03/2024 08:52 EST 2,000 cfu/ml Mixed skin contaminants Performing Locations R1: This test was performed at: [facility], [address] [place] [address], [facility] , , HtmwutVbreygCleveland Clinic FoundationComment on above:Performed By: #### [id number] #### [facility] [address] [place] [address]IcVH Quanton 91-94-6101EZV.beta subunit Qn747 m[IU]/mLHigh1-3 [facility]'S Medical CenterComment on above:Result Comment: 'F NON < 1 - 3' ' 0.2 - 1 WEEK = 5 TO 50' ' 1 - 2 WEEKS = 50 - 500' ' 2 - 3 WEEKS = 100 - 5000' ' 3 - 4 WEEKS = 500 - 00306' ' 4 - 5 WEEKS = 1000 - 98425' ' 5 - 6 WEEKS = 08958 - 074967' ' 6 - 8 WEEKS = 62220 - 243024' ' 8 - 12 WEEKS = 97424 - 213097'Performed By: #### [id number] #### [facility] [address], [place] [address]QTBMPTRAXUwwatct By: SYSTEM SYSTEM on 18-65-3825RAR.beta subunit Qn747 m[IU]/mLHigh1 - 3 mIU/mLRemisol ChemComment on above:Result Comment: 'F NON < 1 - 3' ' 0.2 - 1 WEEK = 5 TO 50' ' 1 - 2 WEEKS = 50 - 500' ' 2 - 3 WEEKS = 100 - 5000' ' 3 - 4 WEEKS = 500 - 55464' ' 4 - 5 WEEKS = 1000 - 72140' ' 5 - 6 WEEKS = 93058 - 803716' ' 6 - 8 WEEKS = 20613 - 589265' ' 8 - 12 WEEKS = 70640 - 469346'BhCG Quanton 00-42-1426WYW.beta subunit Qn268 m[IU]/mLHigh1-3FCommunity Regional Medical CenterComment on above:Result Comment: 'F NON < 1 - 3' ' 0.2 - 1 WEEK = 5 TO 50' ' 1 - 2 WEEKS = 50 - 500' ' 2 - 3 WEEKS = 100 - 5000' ' 3 - 4 WEEKS = 500 - 55076' ' 4 - 5 WEEKS = 1000 - 55661' ' 5 - 6 WEEKS = 21484 - 216947' ' 6 - 8 WEEKS = 74706 - 803861' ' 8 - 12 WEEKS = 20573 - 854087'Performed By: #### [id number] #### [facility] [address], [place] [address]DvBP Quanton 36-48-4244JPM.beta subunit Qn123 m[IU]/mLHigh1-3 [facility]S Medical CenterComment on above:Result Comment: 'F NON < 1 - 3' ' 0.2 - 1 WEEK = 5 TO 50' ' 1 - 2 WEEKS = 50 - 500' ' 2 - 3 WEEKS = 100 - 5000' ' 3 - 4 WEEKS = 500 - 92140' ' 4 - 5 WEEKS = 1000 - 65004' ' 5 - 6 WEEKS = 27320 - 588627' ' 6 - 8 WEEKS = 21705 - 716517' ' 8 - 12 WEEKS = 77263 - 293646'Performed By: #### [id number] #### [facility] [address], [place] [address]NOZKJXXLDYqfzaga By: SYSTEM SYSTEM on 75-19-8557XZX.beta subunit Qn123 m[IU]/mLHigh1 - 3 mIU/mLRemisol ChemComment on above:Result Comment: 'F NON < 1 - 3' ' 0.2 - 1 WEEK = 5 TO 50' ' 1 - 2 WEEKS = 50 - 500' ' 2 - 3 WEEKS = 100 - 5000' ' 3 - 4 WEEKS = 500 - 81944' ' 4 - 5 WEEKS = 1000 - 86522' ' 5 - 6 WEEKS = 52622 - 466211' ' 6 - 8 WEEKS = 22819 - 355493' ' 8 - 12 WEEKS = 12398 - 461208'ZrnC1kub 49-29-9368BlK5l (Bld) [Mass fraction]6.0 %High<=5.9St. Mary'S Medical CenterComment on above:Performed By: #### [id number] #### [facility] [address], [place] [address]NRG Screen 4th Generation wRfxon 00-86-8263TZZ 1+2 Ab+HIV1 p24 Ag IA QlNon-ReactiveInvalid Interpretation CodeNon ReactiveSt. Mary'S Medical CenterComment on above:Result Comment: HIV-1/HIV-2 antibodies and HIV-1 p24 antigen were NOT detected. There is no laboratory evidence of HIV infection. HIV Negative Performed at: [facility] [place] [address] [place], [place] [id number] PhD Jd MontanoPerformed By: #### [id number] #### [facility] [address], [place] [address]XzSK Quanton 77-40-5027AHM.beta subunit Qn52 m[IU]/mLHigh1-3 [facility]S Medical CenterComment on above:Result Comment: 'F NON < 1 - 3' ' 0.2 - 1 WEEK = 5 TO 50' ' 1 - 2 WEEKS = 50 - 500' ' 2 - 3 WEEKS = 100 - 5000' ' 3 - 4 WEEKS = 500 - 41898' ' 4 - 5 WEEKS = 1000 - 68167' ' 5 - 6 WEEKS = 34021 - 496321' ' 6 - 8 WEEKS = 05910 - 483824' ' 8 - 12 WEEKS = 88880 - 113829'Performed By: #### [id number] #### [facility] [address] [place], [place] [address]ECMHYOJYDJtbwfad By: SYSTEM SYSTEM on 68-90-9998Exmymhgtvmf [Mass/Vol]225 mg/pTGqdh678 - 200 mg/dLRemisol ChemCholesterol in HDL [Mass/Vol] [...] 3 - 4 WEEKS = 500 - 08497' ' 4 - 5 WEEKS = 1000 - 24473' ' 5 - 6 WEEKS = 11683 - 442156' ' 6 - 8 WEEKS = 05049 - 203203' ' 8 - 12 WEEKS = 86077 - 940891'Triglyceride [Mass/Vol]212 mg/dLHigh <=149mg/dLRemisol ChemTSH Qn5.68 m[IU]/LHigh0.34 - 5.60 mcIU/mLRemisol Chem CHEMISTRYOrdered By: Chelsey Price on [id number] (Bld) [Mass fraction]5.9 %Normal<=5.9%[facility] [place] CkcdGnqdLIAidM4jtq [id number] (Bld) [Mass fraction]5.9 % Normal<=5.9St. Mary'S Medical CenterComment on above:Performed By: #### [id number] #### [facility] [address], [place] [address]Lsdah Panelon 84-94-0655Wytlyaanrfl [Mass/Vol]225 mg/dLHigh 120-200St. [facility]'S Medical CenterComment on above:Performed By: #### [id number] #### [facility] [address], [place] [address]Uypmhjtszeh in HDL [Mass/Vol]40 mg/dLInvalid Interpretation CodeSt. Mary'S Medical CenterComment on above:Result Comment: '>= 60 LOW RISK' '<= 40 HIGH RISK'Performed By: #### [id number] #### [facility] [address], [place] [address]Pltwhipzdge in LDL [Mass/Vol]171 mg/dLHigh<=129St. [facility]'S Medical CenterComment on above:Performed By: #### [id number] #### [facility] [address], [place] [address]Kjkawiwdqou in VLDL [Mass/Vol]42 mg/dLHigh7-40St. [facility]'S Medical CenterComment on above:Performed By: #### [id number] #### [facility] [address], [place] [address]Dcrmxlnuuzox [Mass/Vol]212 mg/dLHigh<=149St. [facility]'S Medical CenterComment on above:Performed By: #### [id number] #### [facility] [address], [place] [address]VFIww 19-86-7420IJR Qn5.68 m[IU]/LHigh0.34-5.60St. [facility]S Medical CenterComment on above:Performed By: #### [id number] #### [facility] [address] [place], [place] [address]Zfctxngbwp Visit Summaryon 57-99-5603Ucoeivpfgi Visit Summary Ambulatory Visit Summary SANNA RENDON [...] With: Penelope CASAS DO, FAAFP Where: [facility] [address], [facility] [place] [address]- You Need to Schedule the Following Appointments Follow Up with Penelope CASAS DO, FAAFP, FAM, PED When: In 3 months Where: [address], [facility] [place] [address]- You Need to Complete the Following HgbA1c, [...] virus infection Vaginal marlee (more content not included)...[facility] Family Medicine Office/Clinic Noteon 95-16-0845Phdaan Medicine Office/Clinic NoteFavalley springs behavioral health hospital Medicine Office/Clinic Note Chief Complaint Patient [...] 40 mg subcu, continue to follow-up with shipping assistant 5. Gestational diabetes (O24.419: Gestational diabetes mellitus in , unspecified control) Metformin 500 mg daily XR tabs 2/day per RESEARCH AND DEVELOPMENT TESTER Ordered: HgbA1c HgbA1c HgbA1c HgbA1c 6. Well [...] FAAFP, CHRIS, PED In 3 months [address] [facility], [facility] [place] [address]- Additional Instructions: Patient Education Acute Bronchitis, Adult Problem List/Past Medical History Ongoing Acute (more content not included)...[facility] FoundationComment on above:Result Comment: Electronically Signed By: Penelope [...] Community acquired pneumonia Refills: 5 Pickup at [facility] 1985 New azithromycin (azithromycin 250 mg Tab 5-day Dose Pack (Z-Jonny)) 1 Packets By Mouth As Directed Community acquired pneumonia Duration: 5 Days as directed on package labeling Pickup at [facility] 1985 Unchanged enoxaparin (Lovenox 40 [...] physician if questions or concerns Pharmacy Information [facility]: [address] [facility] [address] [place] [id number] [phone] Allergies Milk Products (Illness) ciprofloxacin (Numbness and [...] choosing us for your care. [facility] Medicine Office/Clinic Noteon 08-00-5242Txdkds Medicine Office/Clinic NoteFavalley springs behavioral health hospital Medicine Office/Clinic Note Chief Complaint SOB [...] a 38 Years White Female presenting to [facility] with body aches and productive cough [...] Inhalation, q6hr, 1 EA, Refill(s) 5, [facility] 1985, 168, cm, 02/01/2414:43:00 EDT, Height/Length Dosing, 101.1, kg, 02/02/24 14:43:00 EDT, Weight Dosing azithromycin, = 1 packet(s), Oral, As Directed, as directed on package labeling, X 5 day(s), # 6 tab(s), Refills(s) 0, Pharmacy: [facility] 1985, 168, cm, 02/02/24 14:43:00 [...] Bernstein MD, FAM, MED Only if needed [address] [place] [phone] Additional Instructions: Problem List/Past Medical History Ongoing [...] Vitamin D, 2000 International_Unit (more content not included)...[facility] FoundationComment on above:Result Comment: Electronically Signed By: Anni Bernstein MD\.br\Date and Time Signed: 02/01/2415:03 EDTMRI Brain w/o Contraston 15-75-3112LAC Brain w/o ContrastExam Date/Time: 12/06/2023 14:48 EDT [...] by: LINDY Technologist: [facility] Medical CenterCortisolon 63-60-3455Hhgmzmog [Mass/Vol]12.5 microgram/dLInvalid Interpretation Code 6.2-19.4FCommunity Regional Medical CenterComment on above:Result Comment: Please Note: The reference interval and flagging for this test is for an AM collection. If this is a PM collection please use: Cortisol PM: 2.3-11.9 Performed at: [facility] [id number] PhD Jd Garciaformed By: #### [id number] #### [facility] [address], [place] [address]R3 Freeon 55-75-8599Nncy T3 [Mass/Vol]2.5 pg/mLInvalid Interpretation Code2.0-4.4FCommunity Regional Medical CenterComment on above:Result Comment: Performed at: [employer] [id number] PhD Jd Garciaformed By: #### [id number] #### [facility] [address], [place] [address]Odjgpxrqs 15-55-7828Zlsfkpj [Catalytic activity/Vol]38 U/L Jrxtyr27-661AhyqkaSt. Mary'S Medical CenterComment on above:Performed By: #### [id number] #### [facility] [address], [place] [address]BXAOUHNWWGriqirl By: SYSTEM SYSTEM on 06-52-5821Doxuzwj [Catalytic activity/Vol]38 U/KKnuoif45 - 157 unit/LRemisol ChemCobalamin (Vitamin B12) [Mass/Vol]328 pg/hUPwwcvq93 - 1500 pg/mLRemisol ChemCRP [Mass/Vol] 0.2 mg/dLNormal<=1.9mg/dLRemisol ChemFree T4 [Mass/Vol]0.58 ng/dLNormal0.58 - 1.64 ng/dLRemisol ChemTSH Qn4.97 m[IU]/LNormal0.34 - 5.60 mcIU/mLRemisol ChemCRP on 51-31-3203QIL [Mass/Vol]0.2 mg/dLNormal<=1.9[facility] Comment on above:Performed By: #### [id number] #### [facility] [address] [place] [address]Fgkk T4on 08-69-2300Xxjh T4 [Mass/Vol]0.58 ng/dLNormal0.58-1.64 [facility]S Medical CenterComment on above:Performed By: #### [id number] #### [facility] [address], [place] [address]EZSOGOOHVKUtbigkz By: Isha Zheng on 50-24-8876CTH (Bld) [Velocity]18 mm/hNormal0 - 34 mm/FT HemeAutoSSSed Rate Automatedon 11-88-0229MYF (Bld) [Velocity]18 mm/hNormal0-34[facility] Comment on above:Performed By: #### [id number] #### [facility] [address], [place] [address]THIow 97-77-4288QIM Qn4.97 m[IU]/LNormal0.34-5.60St. [facility]S Medical CenterComment on above:Performed By: #### [id number] #### [facility] [address], [place] [address]All B12on 73-78-1851Wgnhfmeak (Vitamin B12) [Mass/Vol]328 pg/mL Qeoadx33-2228LrlfggSt. Mary'S Medical CenterComment on above:Performed By: #### [id number] #### [facility] [address], [place] [address]Baesfi Medicine Office/Clinic Noteon 39-06-2479Yodlzj Medicine Office/Clinic NoteFavalley springs behavioral health hospital Medicine Office/Clinic Note Chief Complaint Right [...] Iron deficiency) Mild, as reported by her shipping assistant, labs from 2022 appear normal 6. Pre-diabetes (R73.03: Prediabetes) Last A1c Continue metformin Nutrition: - Maintain optimal weight - Calorie restriction - Plant-based diet; high polyunsatur (more content not included)...[facility] FoundationComment on above:Result Comment: Electronically Signed By: Jayant YEBOAH, Monica Varela\.br\Date and Time Signed: 11/09/23 15:56 EDTPhysician Referralon 06-16-0667Liuontmww Referral [id number]#1.00TIFFCleveland Clinic FoundationAmbulatory Visit Summaryon 02-53-1076Udtwxlmxuv Visit Summary SANNA RENDON :1985 Visit Date:10/23/2023 [...] With: Penelope CASAS DO, FAAFP [facility] Office/Clinic Noteon 48-36-6208Rjbcyv Medicine Office/Clinic NoteChief Complaint pt here for [...] Mouth: mucous membranes pink, moist and intact. [place] posterior oropharynx, no palatal inflammation,uvula midline, no [...] 106.2, kg, 10/23/23 16:55:00 EDT, Weight Dosing [facility] External Ambulatory Referral 2. Nasal polyps (J33.9: Nasal polyp, unspecified) pt reported - moved before previous ENT could perform surgery - submitted new referral at this time Ordered: [facility] External Ambulatory Referral 3. Deviated septum (J34.2: Deviated nasal septum) pt reported - moved before previous ENT could perform surgery - see #2 Ordered: [facility] External Ambulatory Referral 4. [...] Dosing 5. Obesity ( (more content not included)...[facility] Comment on above:Result Comment: Electronically Signed By: Shirlene YEBOAH, Lourdes Baltazar\.br\Date and Time Signed: 10/23/23 17:13 EDTPatient Educationon 81-43-7950Czmevbv EducationENT Deviated Septum The septum is the [...] specializes in ear, nose, and throat disorders (meter technician, or ENT) for more tests and treatment. [...] Follow these instructions at home: ? Take zpbw-ztr-xwrpjdq and prescription medicines only as told by [...] specializes in ear, nose, and throat disorders (meter technician, or ENT) for more tests and treatment. This information is not intended to replace advice given to you by your health care provider. Make sure you discuss any questions you have with your health care provider. Document Revised: 12/12/2021 Document Reviewed: 12/12/2021 [employer] Patient Education ? 2022 [employer]. Nasal Polyps Nasal polyps are growths that form in the nose. Inflammation in the nose or sinus openings can leadto changes in the tissue (mucosa) that lines these areas. Long-term inflammation causes the mucosa to grow into a polyp filled with watery mucus. Nasal polyps look like moist, ochoa grapes in the nose. Nasal polyps are not cancer (more content not included)...NormalFisher [facility] St[facility] Joseph Medical CenterCT Abdomen/Pelvis w/o Contraston 74-39-5570SW Abdomen/Pelvis w/o Contrast Exam Date/Time: 09/28/2023 19:58 [...] Given? No Oral contrast amount in ml's: 0NormNewark HospitalB hCG Qualon 68-68-9032Khzi HCG ( test) QlNegativeC[facility] Clinic Foundation Comment on above:Performed By: #### [id number] #### [facility] [address], [place] [address]EBRmb 31-65-8488Mhfav gap [Moles/Vol]13 mmol/LNormal6-16St. [facility]'S Medical CenterComment on above:Performed By: #### [id number] #### [facility] [address], [place] [address]Phmwawy [Mass/Vol]9.9 mg/dLNormal8.9-11.1FCommunity Regional Medical CenterComment on above:Performed By: #### [id number] #### [facility] [address], [place] [address]Aasmvddo [Moles/Vol]101 mmol/LJcpcdr799-770QukzuvSt. Mary'S Medical CenterComment on above:Performed By: #### [id number] #### [facility] [address], [place] [address]QW8 [Moles/Vol]25 mmol/OUqnduo43-78GbvkkzSt. Mary'S Medical Center Comment on above:Performed By: #### [id number] #### [facility] [address], [place] [address]Ssplzmgtda [Mass/Vol]0.9 mg/dLNormal0.5-1.3FCommunity Regional Medical CenterComment on above:Performed By: #### [id number] #### [facility] [address], [place] [address]Qfrmyri [Mass/Vol]94 mg/wMDnqgao83-828MwkwfsSt. Mary'S Medical CenterComment on above:Performed By: #### [id number] #### [facility] [address], [place] [address]Uzdjbrplt [Moles/Vol]3.6 mmol/LNormal3.5-5.3FCommunity Regional Medical CenterComment on above:Performed By: #### [id number] #### [facility] [address], [place] [address]Yycpgu [Moles/Vol]135 mmol/MFwbwzc495-300SmprzeSt. Mary'S Medical CenterComment on above:Performed By: #### [id number] #### [facility] [address], [place] [address]Jnle nitrogen [Mass/Vol]8 mg/dLNormal5-21St. [facility]'S Medical CenterComment on above:Performed By: #### [id number] #### [facility] [address] [place] [address]Wera nitrogen/Creatinine [Mass ratio]9 No NvqisTpo10-42KvdaxxSt. Mary'S Medical CenterComment on above:Performed By: #### [id number] #### [facility] [address] [place] [address]GJC w/ Auto Diffon 61-12-4603Vvqshvyur/100 WBC (Bld)0.7 %Normal 0.0-2.0St. [facility]'S Medical CenterComment on above:Performed By: #### [id number] #### [facility] [address] [place] [address]Jupkhtpvi/Leukocytes Auto (Bld) [Pure # fraction]0.1 E9/LNormal 0.0-0.2FCommunity Regional Medical CenterComment on above:Performed By: #### [id number] #### [facility] [address] [place] [address]Rfbdzvkvxgo (Bld) [#/Vol]0.0 E9/LNormal0.0-0.5FCommunity Regional Medical CenterComment on above:Performed By: #### [id number] #### [facility] [address] [place] [address]Wxuvulyxvah/100 WBC (Bld)0.5 %Normal0.0-8.0St. [facility]'S Medical CenterComment on above:Performed By: #### [id number] #### [facility] [address] [place] [address]Hajphvuccxb distribution width (RBC) [Ratio]14.3 %High10.9-14.2 [facility]S Medical CenterComment on above:Performed By: #### [id number] #### [facility] [address] [place] [address]Bdztddkdyj (Bld) [Volume fraction]39.5 %Bhedwq80.0-46.0St. [facility]'S Medical CenterComment on above:Performed By: #### [id number] #### [facility] [address] [place] [address]Jofujhkymc (Bld) [Mass/Vol]13.2 g/iVNhnhec77.0-16.0St. [facility]'S Medical CenterComment on above:Performed By: #### [id number] #### [facility] [address] [place] [address]Elfxgqushkr (Bld) [#/Vol]3.5 E9/LNormal1.0-4.0St. [facility]'S Medical CenterComment on above:Performed By: #### [id number] #### [facility] [address] [place] [address]Yhjbjbdcigo/100 WBC (Bld)35.6 %Eqiqqg79.0-50.0St. [facility]'S Medical CenterComment on above:Performed By: #### [id number] #### [facility] [address] [place] [address]DUM (RBC) [Entitic mass]29.3 mjOljraq22.0-34.0St. [facility]'S Medical CenterComment on above:Performed By: #### [id number] #### [facility] [address] [place] [address]CZOT (RBC) [Mass/Vol]33.5 g/yDEkymzx72.4-36.0St. [facility]'S Medical CenterComment on above:Performed By: #### [id number] #### [facility] [address] [place] [address]ESL (RBC) [Entitic vol]87.4 cWDeyxmf69.0-100.0St. [facility]'S Medical CenterComment on above:Performed By: #### [id number] #### [facility] [address] [place] [address]Audwsjymk (Bld) [#/Vol]0.7 E9/LNormal0.2-1.0St. [facility]S Medical CenterComment on above:Performed By: #### [id number] #### [facility] [address] [place] [address]Vrexgtrbpii (Bld) [#/Vol]5.6 E9/LNormal2.0-7.5FCommunity Regional Medical CenterComment on above:Performed By: #### [id number] #### [facility] [address] [place] [address]Mcbqgareyad/100 WBC (Bld)56.4 %Stycyw37.0-75.0St. [facility]'S Medical CenterComment on above:Performed By: #### [id number] #### [facility] [address] [place] [address]Ggqcohdc mean volume (Bld) [Entitic vol]8.1 fLNormal6.4-10.8 [facility]S Medical CenterComment on above:Performed By: #### [id number] #### [facility] [address] [place] [address]Uizwvlgpr (Bld) [#/Vol]360.0 E9/NHbjawl075.0-500.0St. [facility]S Medical CenterComment on above:Performed By: #### [id number] #### [facility] [address] [place] [address]MDL (Bld) [#/Vol]4.5 E12/LNormal4.3-5.9St. [facility]S Medical CenterComment on above:Performed By: #### [id number] #### [facility] [address] [place] [address]SGM corrected for nucl RBC Auto (Bld) [#/Vol]9.9 E9/LNormal 4.0-11.0St. [facility]S Medical CenterComment on above:Performed By: #### [id number] #### [facility] [address] [place] [address]FTKNNAXMTBgekjeb By: SYSTEM SYSTEM on 44-93-4467Tlevahh [Mass/Vol]4.8 g/dLNormal3.3 - 5.0 gm/dLRemisol ChemAlbumin/Globulin [Mass ratio] 1.6 {ratio}Normal1.1 - 2.2Remisol ChemALP [Catalytic activity/Vol]66 [iU]/d Ztqutn97 - 98 Int._Unit/LRemisol ChemALT No additional P-5'-P [Catalytic activity/Vol]16 [iU]/dNormal6 - 46 Int._Unit/LRemisol ChemAnion gap [Moles/Vol] 13 mmol/LNormal6 - 16 mEq/LRemisol ChemAST [Catalytic activity/Vol]15 [iU]/d Normal5 - 43 Int._Unit/LRemisol ChemBilirubin [Mass/Vol]0.3 mg/dLNormal0.0 - 1.1 mg/dLRemisol ChemBilirubin.direct [Mass/Vol]0.0 mg/dLNormal0.0 - 0.4 mg/dL Remisol ChemBilirubin.indirect [Mass or moles/Vol]0.3 mg/dLNormal0.1 - 0.9 mg/dL Remisol ChemCalcium [Mass/Vol]9.9 mg/dLNormal8.9 - 11.1 mg/dLRemisol Chem Chloride [Moles/Vol]101 mmol/TNfbdmx777 - 111 mmol/LRemisol ChemCO2 [Moles/Vol] 25 mmol/DZgjtou56 - 31 mmol/LRemisol ChemCreatinine [Mass/Vol]0.9 mg/dLNormal0.5 - 1.3 mg/dLRemisol AaqarMRT73 mL/min/1.73 i6Vmpdve>=59mL/min/1.73 h7Aazrsvl ChemGlobulin (S) [Mass/Vol]3.0 g/dLNormal1.4 - 4.0 gm/dLRemisol ChemGlucose [Mass/Vol]94 mg/uJLquovy62 - 199 mg/dLRemisol ChemLipase [Catalytic activity/Vol]26 U/FWimcpx13 - 58 unit/LRemisol ChemPotassium [Moles/Vol]3.6 mmol/LNormal3.5 - 5.3 mmol/LRemisol ChemProtein [Mass/Vol]7.8 g/dLNormal6.0 - 7.8 gm/dLRemisol ChemSodium [Moles/Vol]135 mmol/HZwpszg738 - 145 mmol/LRemisol ChemUrea nitrogen [Mass/Vol]8 mg/dLNormal5 - 21 mg/dLRemisol ChemUrea nitrogen/Creatinine [Mass ratio]9 mg/mgLow10 - 20Remisol ChemConsent for Treatmenton 05-77-2369Oysycto for Treatment [id number] HospitalDischarge Instructionson 36-83-7592Bmellkinx Instructions [id number]#[id number] Valley Health System Clinical Summaryon 95-54-6466OW Clinical Summary [place] [id number] ED Clinical Summary Person Information Name: SANNA RENDON [facility] Age: 37 Years : 1985 Sex: Female Language: Micronesian PCP: Penelope CASAS DO, FAAFP Marital Status: Phone: [phone] Visit Id: Visit Reason: Medical problem - [...] 21:22:15 09/28/2023 21:22:15 09/28/2023 21:22:15 AD[address]: [facility] [id number] PHYS DOC NOTES: MEDICAL INFORMATION: Prescriptions Given: [...] Follow up: With: Address: When: Penelope CASAS [address] [place] [address], [place] [address] Business (1) In 3 days DIAGNOSIS: 1:Abdominal painNoOhioHealth Dublin Methodist Hospital CenterED Note-Physicianon 09-28-2023 ED Note-PhysicianPatient was [...] understanding agreement this plan is discharged stable condition.[facility] FoundationComment on above:Result Comment: Electronically Signed By: Sidney Daly DO\.cedrick\Date and Time Signed: 09/28/23 21:12 EDTED Note-PhysicianBasic Information Time Seen: Bijan Miramontes PA-C 09/28/2023 18:46 Chief Complaint Pt woke up around 7 am and started getting a pain on R side of belly button. States feels bloated and like her abdomen is coral.Was sent here [facility] for possible appendicitis. Nausea, denies [...] Lab Results No qual (more content not included)...[facility] FoundationComment on above:Result Comment: Electronically Signed By: Bijan Miramontes PA-C\.br\Date and Time Signed: 09/27/2417:50 EDT\.br\Electronically Co-Signed By: Benny Uribe DO\.br\Date and Time Co-Signed: 09/27/2418:44 EDTED Patient Education Noteon 65-62-5991ZM Patient Education NoteGastroenterology Abdominal Pain, Adult Pain [...] these instructions at home: Medicines ? Take fksj-fga-wkkuxeh and prescription medicines only as told by [...] your condition for any changes. ? Take oajs-yoj-mlalryd and prescription medicines only as told by [...] Reviewed: 08/25/2019 Elsevier Patient Education ? 2022 [employer].[facility] ED Patient Summaryon 60-19-2006BT Patient Summary [address] [address] Patient Discharge Instructions Person Information Name: SANNA RENDON Age: 37 Years Arrival Date: 09/28/2023 18:21:25 Discharge Diagnosis: 1:Abdominal pain Primary Care Physician: Penelope CASAS DO, FAAFP Provider Information Primary Provider: Benny Uribe DO [facility] Adviser:Bijan Miramontes PA-C The exam and treatment you received in the Emergency Department were for an urgent problem and are not intended as complete care. It is important that you follow up with a doctor, nurse practitioner,or physician?s contact lens assistant for ongoing care. If your symptoms [...] Follow-up Instructions: With: Address: When: Penelope CASAS [address] [place] [address], [place] [address] Business (1) In 3 days In the event that this physician does not participate in your insurance network, please consult with your insurance company to find a nearby participating provider. Patient Education Materials: Abdominal Pain, Adult A MESSAGE TO ALL PATIENTS REGARDING OPIOIDS PRESCRIPTION OPIOIDS: WHAT YOU NEED TO KNOW Prescription opioids can be used to help relieve awstyvzg-nw-tpajhi pain and are often prescribed following a [...] your community drug take- back program or yourWanderrmacy mail-back program, or flush them down the toilet, following guidance from the Food and Drug Administration (www.fda.gov/Drugs/ResourcesForYou). ? Visit www.cdc.gov/drugoverdose to learn about the risks of opioids abuse and overdose. ? If you believe you may be struggling with addiction, tell your health career specialist and ask for guidance or call [facility]?S National Helpline at 7-516-038-Whatser. v Source: Dep (more content not included)...[facility] Family Medicine Office/Clinic Noteon 73-58-5392Zfvhwh Medicine Office/Clinic NoteChief Complaint abdominal pain HPI [...] agree with above documented HPI by medical receptionist. Portions of this record may have been created with voice recognition artificial intelligence software, specifically [employer], [employer]pl and or [employer]ribute. Substitutions may have occurred due to the inherent limitations of voice recognition and artificial intelligence software. Patient is a 37-year-old female who presents to [facility] care, for right lower quadrant pain, [...] loss. We can o (more content not included)...[facility] Clinic FoundationComment on above:Result Comment: Electronically Signed By: CAHRLA QUINTEROS, JANET\.br\Date and Time Signed: 09/28/23 18:28 EDTHEMATOLOGYOrdered By: SYSTEM SYSTEM on 07-17-0716Avfvwnwkm/100 WBC (Bld)0.7 %Normal0.0 - 2.0 %Remisol HemeBasophils/Leukocytes Auto (Bld) [Pure # fraction]0.1 E9/LNormal0.0 - 0.2 E9/LRemisol HemeEosinophils (Bld) [#/Vol]0.0 E9/LNormal0.0 - 0.5 E9/LRemisol HemeEosinophils/100 WBC (Bld)0.5 % Normal0.0 - 8.0 %Remisol HemeErythrocyte distribution width (RBC) [Ratio]14.3 % High10.9 - 14.2 %Remisol HemeHematocrit (Bld) [Volume fraction]39.5 %Hkinjc41.0 - 46.0 %Remisol HemeHemoglobin (Bld) [Mass/Vol]13.2 g/fIWhfoqh74.0 - 16.0 gm/dL Remisol HemeLymphocytes (Bld) [#/Vol]3.5 E9/LNormal1.0 - 4.0 E9/LRemisol Heme Lymphocytes/100 WBC (Bld)35.6 %Mgiyiw30.0 - 50.0 %Remisol HemeMCH (RBC) [Entitic mass]29.3 jfKrogki78.0 - 34.0 pgRemisol HemeMCHC (RBC) [Mass/Vol]33.5 g/dL Jquqyi38.4 - 36.0 gm/dLRemisol HemeMCV (RBC) [Entitic vol]87.4 yDEcriro21.0 - 100.0 fLRemisol HemeMonocytes (Bld) [#/Vol]0.7 E9/LNormal0.2 - 1.0 E9/LRemisol HemeMonocytes/100 WBC (Bld)6.8 %Normal4.0 - 14.0 %Remisol HemeNeutrophils (Bld) [#/Vol]5.6 E9/LNormal2.0 - 7.5 E9/LRemisol HemeNeutrophils/100 WBC (Bld)56.4 % Vvjada09.0 - 75.0 %Remisol HemePlatelet mean volume (Bld) [Entitic vol]8.1 fL Normal6.4 - 10.8 fLRemisol HemePlatelets (Bld) [#/Vol]360.0 E9/TOskaxy584.0 - 500.0 E9/LRemisol HemeRBC (Bld) [#/Vol]4.5 E12/LNormal4.3 - 5.9 E12/LRemisol HemeWBC corrected for nucl RBC Auto (Bld) [#/Vol]9.9 E9/LNormal4.0 - 11.0 E9/L Remisol HemeHep Func Panelon 97-64-1488Dsurtjz [Mass/Vol]4.8 g/dLNormal3.3-5.0 [facility] CenterComment on above:Performed By: #### [id number] #### [facility] [address], [place] [address]Histvfw/Globulin (S) [Mass conc ratio]1.0Mgnxue6.1-2.2FCommunity Regional Medical CenterComment on above:Performed By: #### [id number] #### [facility] [address] [place] [address] 45783SQR [Catalytic activity/Vol]66 Int._Unit/AHcdwiq09-98QybbbySt. Mary'S Medical CenterComment on above:Performed By: #### [id number] #### [facility] [address] [place] [address] 92642YYD No additional P-5'-P [Catalytic activity/Vol]16 Int._Unit/L Normal6-46St. [facility]S Medical CenterComment on above:Performed By: #### [id number] #### [facility] [address] [place] [address] 38320PMC [Catalytic activity/Vol]15 Int._Unit/LNormal5-43St. [facility]S Medical CenterComment on above:Performed By: #### [id number] #### [facility] [address] [place] [address] 97[address]Tqwxklstj [Mass/Vol]0.3 mg/dLNormal0.0-1.1FCommunity Regional Medical CenterComment on above:Performed By: #### [id number] #### [facility] [address] [place] [address]Wyghscuvr.direct [Mass/Vol]0.0 mg/dLNormal0.0-0.4FCommunity Regional Medical CenterComment on above:Performed By: #### [id number] #### [facility] [address] [place] [address] 41426Fkdlymkrj.indirect [Mass or moles/Vol]0.3 mg/dLNormal0.1-0.9 [facility] CenterComment on above:Performed By: #### [id number] #### [facility] [address], [place] [address]Vobjnbco (S) [Mass/Vol]3.0 g/dLNormal1.4-4.0St. [facility] Medical CenterComment on above:Performed By: #### [id number] #### [facility] [address], [place] [address]Tnnagbv [Mass/Vol]7.8 g/dLNormal6.0-7.8St. [facility] Medical CenterComment on above:Performed By: #### [id number] #### [facility] [address], [place] [address]Wzkonk Levelon 06-30-3571Hpgril [Catalytic activity/Vol]26 U/L Ivaiqn40-70WqsgpxSt. Mary'S Medical CenterComment on above:Performed By: #### [id number] #### [facility] [address], [place] [address]Rekjkhq Educationon 93-60-4209Pefbxaq EducationCardiovascular Hypertension, Adult Hypertension is another name [...] Keep all follow-up visits. Medicines ? Take ftrl-zps-vdenims and prescription medicines only as told by [...] blood. ? For m (more content not included)...[facility] Clinic FoundationRAD - Preliminary Cat Scan Reporton [id number] - Preliminary Cat Scan Report [id number]#1.00TIFFNormalMount Carmel Health SystemEROLOGYOrdered By: Amanda Siegel on 87-49-0975Iecm HCG ( test) QlNegative (09/28/23 6:59 PM)Formerly [facility] Man SeroUA with Cult Rflxon 16-82-6833Ulgadldug Ql (U)NegativeNormalNegativeSt. Mary'S Medical CenterComment on above:Performed By: #### [id number] ####Braulio [facility] Rgtvqumqxf[address]Norhuntington hospitalk, XE[address]Tntkhvp (U)ClearNormalClearFormerly Vid[facility] Beau[facility] Hospitaler [facility] CenterComment on above:Performed By: #### [id number] ####[facility] Vfzivarakc[address] AveNorwalk, JZ[address]Zfkze (U)ColorlessAbnormalYellowSt. Mary'S Medical CenterComment on above:Result Comment: Microscopic readings are only performed on those samples that meet specific criteria set forth by [facility].Performed By: #### [id number] ####[address] Jeffersonville AveNsaint francis hospital & [facility], BE[address]Httnvxx Ql (U)Negative NormalNegativeSt. Mary'S Medical CenterComment on above:Performed By: #### [id number] ####[address] AveNormilford hospital, [place] [address]Gimffiqzmx Auto test strip (U) [Mass/Vol]NegativeNormalNegativeSt. Mary'S Medical CenterComment on above:Performed By: #### [id number] ####[address] AveNormilford hospital, DS[address]368Ptcsuuy Auto test strip Ql (U)NegativeNormalNegativeSt. Mary'S Medical CenterComment on above: Performed By: #### [id number] ####[address] AveNormilford hospital, HY[address]Pxcftvyym esterase Auto test strip Ql (U)Negative NormalNegativeSt. Mary'S Medical CenterComment on above:Performed By: #### [id number] ####[facility] Ohsmvtlrid[address] Jeffersonville AveNormilford hospital, [place] [address]Rjgawhk Auto test strip Ql (U)NegativeNormalNegativeSt. Mary'S Medical CenterComment on above:Performed By: #### [id number] ####[address] AveNorwalk, WZ[address]cJ (U)7.0 [pH]Invalid Interpretation Code5.0-9.0St. [facility]'S Medical CenterComment on above:Performed By: #### [id number] ####[facility] Uovsxliahc949 [facility], VH[address]Tqyynfb Ql (U)NegativeNormalNegativeSt. Mary'S Medical CenterComment on above:Performed By: #### [id number] ####[facility] Fvkrqrsrjc197 [facility] [place], DP[address]Xaqbabxg gravity (U) [Rel density]1.003Invalid Interpretation Code1.005-1.030[facility] Comment on above:Performed By: #### [id number] ####[address], RY[address]Qjbmesnarsfk (U) [Mass/Vol]Negative NormalNegativeSt. Mary'S Medical CenterComment on above:Performed By: #### [id number] ####[address] [facility] [place] [address]Vpar of Urine collection methodClean [facility] Comment on above:Performed By: #### [id number] ####[address] [facility] UH23516DASISKKDGQGejbbci By: SYSTEM SYSTEM on 49-54-6005Bmkhbhksp Ql (U)NegativeNormalNegativemg/dLVALIR REHABILIT[facility] [place] UA Auto SSClarity (U) Clear (09/28/23 7:35 PM)NormalClearFTMC UA Auto SSColor (U)Colorless 1 *ABN* (09/28/23 7:35 PM)Invalid Interpretation CodeYellowVALIR REHABILITATION HOSPITAL – [place] UA Auto SSComment on above:Interpretive Data: Microscopic readings are only performed on those samples that meet specific criteria set forth by [facility].Glucose Ql (U)NegativeNormalNegativemg/dLFT UA Auto SSHemoglobin Auto test strip (U) [Mass/Vol]NegativeNormalNegativemg/dLFT UA Auto SSKetones Auto test strip Ql (U)NegativeNormalNegativemg/dLFT UA Auto SSLeukocyte esterase Auto test strip Ql (U)NegativeNormalNegativeLeu/uLFT UA Auto SS Nitrite Auto test strip Ql (U)NegativeNormalNegativemg/dLFT UA Auto SSpH (U) 7.0 *NA* (09/28/23 7:35 PM)Invalid Interpretation Code5.0 - 9.0[facility] [place] UA Auto SSProtein Ql (U)NegativeNormalNegativemg/dLVALIR REHABILITATION [facility] [place] UA Auto SSSpecific gravity (U) [Rel density] 1.003 *NA* (09/28/23 7:35 PM)Invalid Interpretation Code1.005 - 1.030[facility] [place] UA Auto SS Urobilinogen (U) [Mass/Vol]NegativeNormalNegativemg/dLVALIR REHABILITATION [facility]OSP[facility] [place] UA Auto SSURINALYSIS Ordered By: Bijan Miramontes on 13-51-2733CT Spec DescClean Catch (09/28/23 7:35 PM)NormalVALIR REHABILITATION HOSPITAL – [place] UA Auto SS egFRon 08-07-4487iSBL01 mL/min/1.73 v3Bkhknx>=59Fisher [facility] CenterComment on above:Order Comment: Order added by Discern Expert.Performed By: #### [id number] #### Braulio [facility] [address], [place] [address]Cbyxzfmgdk Visit Summaryon 53-10-7445Csacibuxwc Visit Summary SANNA RENDON :1985 Visit Date:08/03/2023 Ambulatory Visit Instructions Your Diagnosis Antiphospholipid syndrome BMI 38.0-38.9,adult Class 2 severe obesity due to excess calories with serious comorbidity and body mass index (BMI) of38.0 to 38.9 in adult Gestational diabetes H/O: CVA Pollen allergies History of gestational diabetes Your Care Team Attending Physician - Penelope CSAAS DO, FAAFP Primary Care Physician - Penelope [...] PED When: In 4 months Where: [address] [place] [address]- You Need to Complete the Following HgbA1c, [...] ? Walking a mile (more content not included)...[facility] Medicine Office/Clinic Noteon 81-33-4786Ndoipg Medicine Office/Clinic NoteChief Complaint Wants to discuss [...] comfortable with plan. PNMV Ordered: A1c POC 20252 Total time spent preparing the chart, conducting [...] FAAFP, FAM, PED In 4 months [address] [facility], [facility] [place] [address]- Additional Instructions: Patient Education Exercising to Lose Weight Problem Lis (more content not included)...[facility] Comment on above:Result Comment: Electronically Signed By: [...] your health care provider or diet and certified nutritionist (dietitian). This may include: ? Eating fewer [...] regular exercise is e (more content not included)...[facility] Clinic FoundationPatient Educationon 39-62-9058Yzywjsu EducationEndocrinology Blood Glucose Monitoring, Adult Monitoring your [...] meter by following in (more content not included)...[facility] Clinic FoundationLab Reportson 18-13-8420Adi Reports [id number]#1.00[facility] HospitalConsultation Noteon 45-68-3105Sgzdnitzfubq Note [id number]#1.00[facility] HospitalAmbulatory Visit Summaryon 43-57-7270Fhxctauoui Visit Summary SANNA RENDON :1985 Visit Date:05/25/2023 [...] With: Penelope CASAS DO, FAAFP [facility] Office/Clinic Noteon 87-36-8139Sdqilw Medicine Office/Clinic NoteChief Complaint States she is [...] Benadryl. 2. 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 [...] FAAFP, FAM, PED In 2 months [address] [facility], [place] [address]- Additional Instructions: Patient Education Eustachian Tube Dysfunction Dyshidrotic Eczema Allergies, Tadeo (more content not included)...[facility] Comment on above:Result Comment: Electronically Signed By: [...] ears completely after. General instructions ? Take cxli-ypu-sfalapj and prescription medicines only as told by [...] cases are treated w (more content not included)...[facility] Urineon 01-30-1429Rtgtgigq identified Cx Nom (U) Microbiology PROCEDURE: Urine Culture [R1] SOURCE: U Random BODY SITE: COLLECTED DATE/TIME: 05/01/2023 18:00 EST RECEIVED DATE/TIME: 05/01/2023 18:08 EST START DATE/TIME: 05/01/2023 18:08 EST FREE TEXT SOURCE: Penelope CASAS DO, FAAFP, DO, FAAFP, Penelope Tony FINAL REPORTS Final Report [] Verified Date/Time: 05/03/2023 07:00 EST <10,000 cfu/ml Mixed skin contaminants Performing Locations R1: This test was performed at: [facility], [address] [place] [address], [address]- , [place], AvntpvDxrvwcOhioHealth Riverside Methodist HospitalComment on above:Performed By: #### [id number] ####[address] [address]Blecoyy for Treatmenton 91-09-0678Taqmkji for Treatment [id number]#1.00TIFFCleveland Clinic FoundationUrinalysison 90-00-9518Rffabnkk LM Ql (Urine sed)TRACENormalTraceSt. Mary'S Medical CenterComment on above:Performed By: #### [id number] ####[address] [address]Hhonegslf Ql (U) NegativeNormalNegativeSt. Mary'S Medical CenterComment on above:Performed By: #### [id number] ####[address] [address]Arysbqt (U)CLOUDYAbnormalClearFCommunity Regional Medical CenterComment on above:Performed By: #### [id number] ####[address] [address]Mjcec (U)YELLOWNormalYellowSt. Mary'S Medical CenterComment on above:Performed By: #### [id number] ####[address] [address]Sswopbimdg cells.squamous LM.HPF (Urine sed) [#/Area]/[HPF]Normal0-2FCommunity Regional Medical CenterComment on above:Performed By: #### [id number] ####[address] [address]Xrxtdfi Test strip (U) [Mass/Vol]NegativeNormal NegativeSt. Mary'S Medical CenterComment on above:Performed By: #### [id number] ####[address] [address] Hemoglobin Ql (U)NegativermalNegLouis Stokes Cleveland VA Medical CenterComment on above:Performed By: #### [id number] ####[address] [address]Aqxxqhx (U) [Mass/Vol]NegativeNormalNegativeSt. Mary'S Medical CenterComment on above:Performed By: #### [id number] ####[address] [address] Devine.plasma/Devine.RBC (Bld) [Mass ratio]5-4Hmgjzo1-3Aexdnw [facility] CenterComment on above:Performed By: #### [id number] ####[address] [address]Qshtgzg Ql (U)NegativeNormal Premier HealthComment on above:Performed By: #### [id number] ####[address] [address]gO (U)6.0 [pH]Invalid Interpretation Code5.0-9.0St. Mary'S Medical CenterComment on above:Performed By: #### [id number] ####[address] [address]Fpwxbmn (U) [Mass/Vol]NegativeNormal NegativeSt. Mary'S Medical CenterComment on above:Performed By: #### [id number] ####[address] [address] Specific gravity (U) [Rel density]<=1.005Invalid Interpretation Code1.005-1.030 [facility]S Medical CenterComment on above:Performed By: #### [id number] ####[address] [address]Mywb of Urine collection methodClean CatchNormalSt. Mary'S Medical CenterComment on above:Performed By: #### [id number] ####[address], [place] [address]Oehnpaxznrie Qn (U)0.2 {Nicole'U}/dLNormal0.0-1.0 [facility]S Medical CenterComment on above:Performed By: #### [id number] ####[facility] [address] [place], [place] [address]NEW Auto Ql (U)TRACEAbnormalNegativeSt. Mary'S Medical CenterComment on above: Performed By: #### [id number] ####[facility] [address] [place], [place] [address]CYT LM.HPF (Urine sed) [#/Area]9-2Ungpbp5-3Ispuor [facility] CenterComment on above:Performed By: #### [id number] ####[facility] [address] [place], [place] [address]Nsxiewzmnc Visit Summaryon 28-35-9703Aazokpfmih Visit Summary SANNA RENDON :1985 Visit Date:04/27/2023 [...] With: Penelope CASAS DO, FAAFP [facility] CHEMISTRYOrdered By: SYSTEM SYSTEM on 95-78-3142PVD Qn4.04 m[IU]/LNormal0.34 - 5.60 mcIU/mLRemisol ChemJamaica Plain Va Medical Center Medicine Office/Clinic Noteon 15-65-2447Vmpssf Medicine Office/Clinic NoteChief Complaint Since last Sunday has been having joint pain with burning sensation and has been having diarrheawith stomach pain. States her kids are sick. Also has been having burning in her nipples, she is . Wants her thyroid checked. History of Present Illness Children are sick at home and has been having diarrhea since Sunday before [place], nonbloody with some associated stomach pain. She has been having some burning in her nipples when she is breast-feeding and wants her thyroid checked. Muscle aches and pains like flu Still breast feeding. No loss of taste nor smell. [id number] while taking Glucophage XR 500 mg p.o. [...] Push fluids and Tylenol and or ibuprofen gtkc-mar-iaoxddt as directed. Patient does not appear ill [...] Your BMIand weight manag (more content not included)...[facility] FoundationComment on above: Result Comment: Electronically Signed By: PRAVEEN RESENDEZ FAAFP, Penelope Tony\.br\Date and Time Signed: 04/27/23 12:53 ESTPatient Educationon 85-86-2792Ebmtnsa Education Endocrinology Diabetes Mellitus and Exercise Exercising [...] plan? Your health care provider or certified hyperbaric technician can help you make a plan [...] stroke). Where to find more information ? [place] [employer]: www.diabetes.org Summary ? Exercising regularly is important for overall health, especially for people who have diabetes mellitus. ? Exercising has many health benefits. It increases muscle strength and bone density and reduces body fat and stress. It also lowers and controls blood glucose. ? Your health care provider or certified hyperbaric technician can help you make an activity [...] provider. Document Revised: 01/12/2020 Document Reviewed: 01/12/2020 Else[employer] Patient Education ? 2022 [employer] Preventing Hypoglycemia Hypoglycemia occurs when the level of sugar (glucose) in the blood is too low. Hypoglycemia can happen in people who do or do not have diabetes (diabetes (more content not included)...NormalSt. Mary'S Medical CenterTSHon 69-51-9271IDV Qn 4.04 m[IU]/LNormal0.34-5.60St. [facility]S Medical CenterComment on above:Performed By: #### [id number] ####Braulio 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 2. Make sure your ears are clean [...] cannot use soap and water, use hand final inspector truck trailer. Follow these instructions at home: ? Use [...] Reviewed: 02/11/2020 Elsevier Patient Education ? 2022 [employer] Infectious Disease Otitis Externa Otitis externa [...] you start to feel better. ? Take skxe-zxj-inejllm and prescription medicines only as told by your doctor. ? Avoid getting water in your ears as told by your doctor. You may be told to avoid swimming or water sports for a few days. ? Keep all follow-up visits. How is this prevented? ? Keep your ears dry. Use the corner o (more content not included)...Normal St[facility]'S Medical CenterPatient Educationon 97-19-3616Jcnueat Education Immunology Fatigue If you have fatigue, [...] these instructions at home: Medicines ? Take snsm-vfl-tmopcmz and prescription medicines only as told by [...] the National Suicide Prevention Lifeline at or 070. This is open 24 hours a day. ? Text the Crisis Text Line at 930780. Summary ? If you have fatigue, you [...] provider. Document Revised: 02/06/2022 Document Reviewed: 02/06/2022 [employer] Patient Education ? 2022 [employer] Urology Urodynamic Testing Urodynamic tests are [...] Leaking urine (inco (more content not included)...NormalSt. Mary'S Medical CenterCHEMISTRYOrdered By: SYSTEM SYSTEM on 44-87-4760Dqom T4 [Mass/Vol]0.58 ng/dLNormal0.58 - 1.64 ng/dLFTMC RemisolTSH Qn3.35 m[IU]/LNormal0.34 - 5.60 mcIU/mLFTMC RemisolAlbumin [Mass/Vol]4.5 g/dLNormal3.3 - 5.0 gm/dLFTMC Remisol Albumin/Globulin [Mass ratio]1.4 {ratio}Normal1.1 - 2.2FT[facility] RemisolALP [Catalytic activity/Vol]62 [iU]/mHxczqu33 - 98 Int._Unit/LFTMC RemisolALT No additional P-5'-P [Catalytic activity/Vol]27 [iU]/dNormal6 - 46 Int._Unit/LFTMC RemisolAnion gap [Moles/Vol]13 mmol/LNormal6 - 16 mEq/LFTMC RemisolAST [Catalytic activity/Vol]21 [iU]/dNormal5 - 43 Int._Unit/LFTMC RemisolBilirubin [Mass/Vol]0.3 mg/dLNormal0.0 - 1.1 mg/dLFTMC RemisolCalcium [Mass/Vol]9.6 mg/dL Normal8.9 - 11.1 mg/dLFTMC RemisolChloride [Moles/Vol]104 mmol/VFpfqrx383 - 111 mmol/LFTMC RemisolCO2 [Moles/Vol]25 mmol/IQgpkpb32 - 31 mmol/LFTMC Remisol Cobalamin (Vitamin B12) [Mass/Vol]211 pg/jQJyhizd32 - 1500 pg/mLFTMC Remisol Creatinine [Mass/Vol]0.9 mg/dLNormal0.5 - 1.3 mg/dLFTMC RemisolFerritin [Mass/Vol]38 ng/zKXkokpt55 - 307 ng/mLFTMC RemisolFolate [Mass/Vol]13.5 ng/mL Normal>=6.7ng/mLFTMC RemisolGFR/1.73 sq M.predicted among non-blacks MDRD (S/P/Bld) [Vol rate/Area]85 mL/min/1.73 y5Saualm>=59mL/min/1.73 m2FTMC Chem S Globulin (S) [Mass/Vol]3.3 g/dLNormal1.4 - 4.0 gm/dLFTMC RemisolGlucose [Mass/Vol]93 mg/gPXawbfh52 - 199 mg/dLFTMC RemisolIron [Mass/Vol]56 ug/dLNormal 35 - 153 mcg/dLFTMC RemisolIron binding capacity [Mass/Vol]395 ug/cZOaxfzb537 - 400 mcg/dLFTMC RemisolPotassium [Moles/Vol]3.7 mmol/LNormal3.5 - 5.3 mmol/LFTMC RemisolProtein [Mass/Vol]7.8 g/dLNormal6.0 - 7.8 gm/dLFTMC RemisolSodium [Moles/Vol]138 mmol/AXpgnbr899 - 145 mmol/LFTMC RemisolTransferrin [Mass/Vol]282 mg/ePBgnndd084 - 370 mg/dLFTMC RemisolUrea nitrogen [Mass/Vol]11 mg/dLNormal5 - 21 mg/dLFTMC RemisolUrea nitrogen/Creatinine [Mass ratio]12 mg/jwIrqswl75 - 20 [facility] RemisolHEMATOLOGYOrdered By: SYSTEM SYSTEM on 07-54-1029Tuzywgseu/100 WBC (Bld)0.6 %Normal0.0 - 2.0 %[facility] HemeAutoSSBasophils/Leukocytes Auto (Bld) [Pure # fraction]0.0 E9/LNormal0.0 - 0.2 E9/LFTMC HemeAutoSSEosinophils/100 WBC (Bld) 1.1 %Normal0.0 - 8.0 %[facility] HemeAutoSSEosinophils/Leukocytes Auto (Bld) [Pure # fraction]0.1 E9/LNormal0.0 - 0.5 E9/LFTMC HemeAutoSSLymphocytes/100 WBC (Bld) 42.4 %Yddyav32.0 - 50.0 %[facility] HemeAutoSSLymphocytes/Leukocytes Auto (Bld) [Pure # fraction]3.4 E9/LNormal1.0 - 4.0 E9/LFTMC HemeAutoSSMonocytes/100 WBC (Bld)8.0 %Normal4.0 - 14.0 %[facility] HemeAutoSSMonocytes/Leukocytes Auto (Bld) [Pure # fraction]0.6 E9/LNormal0.2 - 1.0 E9/LFTMC HemeAutoSSNeutrophils/100 WBC (Bld) 47.9 %Totrpc25.0 - 75.0 %[facility] HemeAutoSSNeutrophils/Leukocytes Auto (Bld) [Pure # fraction]3.8 E9/LNormal2.0 - 7.5 E9/LFTMC HemeAutoSSHEMATOLOGYOrdered By: Trena Castro on 03-96-8858Mcymxbxefio distribution width (RBC) [Ratio]14.5 % High10.9 - 14.2 %[facility] HemeAutoSSHematocrit (Bld) [Volume fraction]37.4 %Normal 34.0 - 46.0 %[facility] HemeAutoSSHemoglobin (Bld) [Mass/Vol]13.1 g/aEQydgfh72.0 - 16.0 gm/dLFTMC HemeAutoSSMCH (RBC) [Entitic mass]30.6 jaMaeirw87.0 - 34.0 pgFTMC HemeAutoSSMCHC (RBC) [Mass/Vol]34.9 g/nDUjfqdx00.4 - 36.0 gm/dLFTMC HemeAutoSS MCV (RBC) [Entitic vol]87.7 tUWtditb60.0 - 100.0 fLFTMC HemeAutoSSPlatelet mean volume (Bld) [Entitic vol]8.2 fLNormal6.4 - 10.8 fLFTMC HemeAutoSSPlatelets (Bld) [#/Vol]334.0 E9/EGxyoby717.0 - 500.0 E9/LFTMC HemeAutoSSRBC (Bld) [#/Vol] 4.3 E12/LNormal4.3 - 5.9 E12/LFTMC HemeAutoSSWBC corrected for nucl RBC Auto (Bld) [#/Vol]7.9 E9/LNormal4.0 - 11.0 E9/LFTMC HemeAutoSSCHEMISTRYOrdered By: SYSTEM SYSTEM on 27-11-8386Fspb T4 [Mass/Vol]0.58 ng/dLNormal0.58 - 1.64 ng/dL [facility] RemisolTSH Qn3.10 m[IU]/LNormal0.34 - 5.60 mcIU/mLFTMC RemisolCHEMISTRY Ordered By: Valeri German on 40-74-9754ZlF7i (Bld) [Mass fraction]5.9 %Normal <=5.9%[facility] ChemAutoSSCHEMISTRYOrdered By: SYSTEM SYSTEM on 91-14-6082Pqqd T4 [Mass/Vol]0.71 ng/dLNormal0.58 - 1.64 ng/dLFTMC RemisolTSH Qn3.77 m[IU]/LNormal 0.34 - 5.60 mcIU/mLFTMC RemisolCBC AUTO DIFFon 11-06-3245VBOD #0.0 103/ulNormal 0.0-0.1The Medina HospitalComment on above:Performed By: #### [id number] #### [facility] [address] [address] [address] Edward GillBasophils/100 WBC (Bld)0.4 %Normal0.2-2.0[facility] Comment on above:Performed By: #### [id number] #### [facility] [address] [address] [address] Edward Traore #0.1 103/ulNormal0.0-0.7The [facility]ina HospitalComment on above: Performed By: #### HIV12 #### [facility] [address] [address] [address] Edward Calhounosinophils/100 WBC (Bld)1.3 %Normal0.9-7.0[facility] Comment on above:Performed By: #### HIV12 #### [facility] [address] [address] [address] Edward Calhounrythrocyte distribution width (RBC) [Ratio]16.6 %Critically high 11.0-15.0The Medina HospitalComment on above:Performed By: #### HIV12 #### [facility] [address] [address] [address] Edward GillHematocrit (Bld) [Volume fraction]30.2 %Critically low36.0-48.0 The Medina HospitalComment on above:Performed By: #### HIV12 #### [facility] [address] [address] [address] Edward GillHemoglobin (Bld) [Mass/Vol]10.5 g/dLCritically low12.0-16.0The Medina HospitalComment on above:Performed By: #### HIV12 #### [facility] [address] [place] [address] Dr. Edward Ray #0.04 10e3/ulCritically high0.00-0.03[facility] Comment on above:Performed By: #### HIV12 #### [facility] [address] [place] [address] Dr. Edward Ray %0.4 %Normal0.0-0.5The Medina HospitalComment on above: Performed By: #### HIV12 #### [facility] [address] [place] [address] Dr. Edward Velásquez #3.1 103/ulNormal1.2-3.8The Medina HospitalComment on above:Performed By: #### HIV12 #### [facility] [address] [place] [address] Dr. Edward Alvarezhocytes/100 WBC (Bld)34.2 %Nwepdr90.5-60.0Children'S Hospital Of ColumbusComment on above:Performed By: #### HIV12 #### [facility] [address] [place] [address] Dr. Edward SimmonsUAL DIFF REQNONormalThe Medina HospitalComment on above: Performed By: #### HIV12 #### [facility] [address] [place] [address] Dr. Edward June (RBC) [Entitic mass]30.3 usFyxtmb90.7-34.0The [facility]ina HospitalComment on above:Performed By: #### HIV12 #### [facility] [address] [place] [address] Dr. Edward June (RBC) [Mass/Vol]34.8 g/rRPcftlu97.9-35.2The [facility]ina HospitalComment on above:Performed By: #### HIV12 #### [facility] [address] [place] [address] Dr. Edward Desai (RBC) [Entitic vol]87.0 bHTahito75.0-99.0The [facility] HospitalComment on above:Performed By: #### HIV12 #### [facility] [address] [place] [address] Dr. Edward Rosas #0.7 103/ulNormal0.3-0.8The [facility] HospitalComment on above:Performed By: #### HIV12 #### [facility] [address] [place] [address] Dr. Edward Ignacioocytes/100 WBC (Bld)7.5 %Normal1.7-12.0[facility] Comment on above:Performed By: #### HIV12 #### [facility] [address] [place] [address] Dr. Edward Guevara #5.0 103/ulNormal1.4-6.5The [facility]ina HospitalComment on above:Performed By: #### HIV12 #### [facility] [address] [place] [address] Dr. Edward Moralesutrophils/100 WBC (Bld)56.2 %Yizwlx93.0-75.0The [facility]ina HospitalComment on above:Performed By: #### HIV12 #### [facility] [address] [place] [address] Dr. Edward Serranolet mean volume (Bld) [Entitic vol]9.8 fLNormal9.5-13.5The [facility]ina HospitalComment on above:Performed By: #### HIV12 #### [facility] [address] [place] [address] Dr. Edward GillPLT238 103/gjOkduqv622-518Nbu Medina HospitalComment on above: Performed By: #### HIV12 #### [facility] [address] [place] [address] Dr. Edward GillRBC3.47 106/ulCritically low4.20-5.40The [facility]ina HospitalComment on above:Performed By: #### HIV12 #### [facility] [address] [place] [address] Dr. Edward GillWBC9.0 103/ulNormal4.0-11.0The [facility]ina HospitalComment on above: Performed By: #### HIV12 #### [facility] [address] [place] [address] Dr. Edward GillFETAL SCREENon 52-18-3888BVPMX SCREENNegativeAshtabula County Medical CenterComment on above:Performed By: #### FETSCRN #### [facility] [address] [place] [address] Dr. Edward GillDIRECT COOMBSon 90-54-1528YYNLIL COOMBSNegEast [place] Regional HospitalComment on above:Performed By: #### DIRCMB #### [facility] [address] [place] [address] Dr. Edward GillPOINT OF CARE GLUCOSEon 06-56-7764Wrqknpx [Mass/Vol]117 mg/dL Critically rcrk80-867Pag Medina HospitalComment on above:Performed By: #### POCGLUC ####[facility] Zsehmznx[address] [place], [place] [address]Dr. Edward GillTYPE AND SCREENon 84-12-2457FODG AND SCREENNegativeAshtabula County Medical CenterComment on above:Performed By: #### TNS #### [facility] [address] [place] [address] Dr. Edward GillCBC AUTO DIFFon 44-12-4935BJCP #0.0 103/ulNormal0.0-0.1The [facility]ina HospitalComment on above:Performed By: #### HIV12 #### [facility] [address] [place] [address] Dr. Edward GillBasophils/100 WBC (Bld)0.2 %Normal0.2-2.0[facility] Comment on above:Performed By: #### HIV12 #### [facility] [address] [place] [address] Dr. Edward Traore #0.0 103/ulNormal0.0-0.7The [facility]ina HospitalComment on above: Performed By: #### HIV12 #### [facility] [address] [place] [address] Dr. Edward Calhounosinophils/100 WBC (Bld)0.5 %Critically low0.9-7.0The [facility]ina HospitalComment on above:Performed By: #### HIV12 #### [facility] [address] [place] [address] Dr. Edward Calhounrythrocyte distribution width (RBC) [Ratio]16.1 %Critically high 11.0-15.0The [facility]ina HospitalComment on above:Performed By: #### HIV12 #### [facility] [address] [place] [address] Dr. Edward GillHematocrit (Bld) [Volume fraction]32.1 %Critically low36.0-48.0 The [facility]ina HospitalComment on above:Performed By: #### HIV12 #### [facility] [address] [place] [address] Dr. Edward GillHemoglobin (Bld) [Mass/Vol]11.7 g/dLCritically low12.0-16.0The [facility] HospitalComment on above:Performed By: #### HIV12 #### [facility] [address] [place] [address] Dr. Edward Ray #0.04 10e3/ulCritically high0.00-0.03[facility] Comment on above:Performed By: #### HIV12 #### [facility] [address] [place] [address] Dr. Edward Ray %0.5 %Normal0.0-0.5The [facility] HospitalComment on above: Performed By: #### HIV12 #### [facility] [address] [place] [address] Dr. Edward Velásquez #2.4 103/ulNormal1.2-3.8The [facility] HospitalComment on above:Performed By: #### HIV12 #### [facility] [address] [place] [address] Dr. Edward Ronmphocytes/100 WBC (Bld)27.2 %Vfashk37.5-60.0The [facility] HospitalComment on above:Performed By: #### HIV12 #### [facility] [address] [place] [address] Dr. Edward SimmonsUAL DIFF REQNONormalThe [facility]ina HospitalComment on above: Performed By: #### HIV12 #### [facility] [address] [place] [address] Dr. Edward De Leon (RBC) [Entitic mass]30.0 fpEsfjec80.7-34.0The [facility] HospitalComment on above:Performed By: #### HIV12 #### [facility] [address] [place] [address] Dr. Edward June (RBC) [Mass/Vol]36.4 g/dLCritically high29.9-35.2The [facility] HospitalComment on above:Performed By: #### HIV12 #### [facility] [address] [place] [address] Dr. Edward Desai (RBC) [Entitic vol]82.3 jNCeayxq20.0-99.0The [facility] HospitalComment on above:Performed By: #### HIV12 #### [facility] [address] [place] [address] Dr. Edward Rosas #0.7 103/ulNormal0.3-0.8The [facility] HospitalComment on above:Performed By: #### HIV12 #### [facility] [address] [place] [address] Dr. Edward Ignacioocytes/100 WBC (Bld)7.7 %Normal1.7-12.0[facility] Comment on above:Performed By: #### HIV12 #### [facility] [address] [place] [address] Dr. Yilan ChangNEUT #5.5 103/ulNormal1.4-6.5The [facility] HospitalComment on above:Performed By: #### HIV12 #### [facility] [address] [place] [address] Dr. Edward Moralesutrophils/100 WBC (Bld)63.9 %Gneirv19.0-75.0The [facility] HospitalComment on above:Performed By: #### HIV12 #### [facility] [address] [place] [address] Dr. Edward GillPlatelet mean volume (Bld) [Entitic vol]10.0 fLNormal9.5-13.5The [facility] HospitalComment on above:Performed By: #### HIV12 #### [facility] [address] [place] [address] Dr. Edward GillPLT274 103/qgSuehso795-572Xlw [facility] HospitalComment on above: Performed By: #### HIV12 #### [facility] [address] [place] [address] Dr. Edward GillRBC3.90 106/ulCritically low4.20-5.40The [facility] HospitalComment on above:Performed By: #### HIV12 #### [facility] [address] [place] [address] Dr. Edward GillWBC8.7 103/ulNormal4.0-11.0The [facility] HospitalComment on above: Performed By: #### HIV12 #### [facility] [address] [place] [address] Dr. Edward GillCovid-19 PCR ([facility]VDMARY [facility] AL[facility])on 25-79-2585FLEQ-CoV-2 (COVID-19) RNA LELO+probe Ql (Unsp spec)Not detectedNormalNOT DETECTEDThe [facility] Comment on above:Result Comment: When diagnostic [...] for this test is supported by the [place] of Health and Human Service's declaration that [...] longer be used).Performed By: #### HIV12 #### [facility] [address] [address] [address] Edward GillDRUG SCREEN RAPID (URINE)on 74-75-1465GSVTrmsvzuuEfjlzuSCDBNHGM Children'S Hospital Of ColumbusComment on above:Performed By: #### DRUGRPD ####[facility] [address] [address]Dr. Edward GillBAR NegativeNormalNEGATIVEThe [facility] HospitalComment on above:Performed By: #### DRUGRPD ####[facility] [address] [address]Dr. Edward GillBUPNegativeNormalNEGATIVEChildren'S Hospital Of ColumbusComment on above:Performed By: #### DRUGRPD ####[facility] [address] [address]Dr. Edward GillBZONegativeNormalNEGATIVEChildren'S Hospital Of ColumbusComment on above:Performed By: #### DRUGRPD ####[facility] [address] [address]Dr. Edward GillCOCNegative NormalNEGATIVEChildren'S Hospital Of ColumbusComment on above:Performed By: #### DRUGRPD ####[facility] Dolglqpyux[address] [place], [place] [address]Dr. Edward GillCUT-OFFSSEE BELOWAshtabula County Medical CenterComment on above:Result Comment: AMP (Amphetamine): 500ng/mL, BAR (Barbituates): 200 ng/mL, BZO (Benzodiazepines): 150 ng/mL, BUP (Buprenorphine): 10 ng/mL, INDIA (Cocaine): 150 ng/mL, mAMP (Methamphetamine): 500 ng/mL, MTD (Methadone): 200 ng/mL, OPI (Opiates): 100 ng/mL, OXY (Oxycodone): 100 ng/mL, PCP (Phencyclidine): 25 ng/mL, PPX (Propoxyphene): 300 ng/mL, THC (Cannabinoids): 50 ng/mL, TCA (Trycyclic Antidepressants): 300 ng/mLPerformed By: #### DRUGRPD ####[facility] Umjmulzrab[address] [place], [place] [address]Dr. Edward ChangDRUG CUT HEADERDRUG CLASS TEST SYSTEM CUT-OFF CONCENTRATIONS ARE FOLLOWS:NormalThe [facility]ory HospitalComment on above:Performed By: #### DRUGRPD ####[facility] Vtidafkiou[address] [place], [place] [address]Dr. Edward ChangmAMP NegativeNormalNEGATIVEThe [facility] HospitalComment on above:Performed By: #### DRUGRPD ####[facility] Qixhukjdxb[address] [place], [place] [address]Dr. Yilan ChangMTDNegativeNormalNEGATIVEThe [facility] HospitalComment on above:Performed By: #### DRUGRPD ####[facility] Ssudufnyaj[address] [place], [place] [address]Dr. Yilan ChangOPINegativeNormalNEGATIVEThe [facility] HospitalComment on above:Performed By: #### DRUGRPD ####[facility] [address]lqcrhpl[address] [place], [place] [address]Dr. Yilan ChangOXYNegative NormalNEGATIVEThe [facility] HospitalComment on above:Performed By: #### DRUGRPD ####[facility] Ewrwtozkcc[address] [place], [place] [address]Dr. Yilan ChangPCPNegativeNormalNEGATIVEThe [facility] HospitalComment on above: Performed By: #### DRUGRPD ####[facility] [address]tfzntqlsv[address] [place], [place] [address]Dr. Yilan ChangPPXNegativeNormalNEGATIVEThe [facility] HospitalComment on above:Performed By: #### DRUGRPD ####[facility] [address]md[address] [id number]. Edward GillTCANegative NormalNEGATIVEChildren'S Hospital Of ColumbusComment on above:Performed By: #### DRUGRPD ####[facility] [address] [id number]. Edward GillTHCNegativeNormalNEGATIVEChildren'S Hospital Of ColumbusComment on above: Performed By: #### DRUGRPD ####[facility] [address] [id number]. Edward Sherwood PREG BIOPHY W NON STRESSon 23-81-9836IH PREG BIOPHY W NON STRESSEXAMINATION: US PREG [...] Electronically authenticated by: HUMERA KIM Date: 2022-05-06 19:05[facility] PREG BIOPHY W NON STRESSon 30-71-4735XI PREG BIOPHY W NON STRESSEXAMINATION: US PREG [...] Electronically authenticated by: ANGIE GALDAMEZ Date: 2022-05-01 16:16[facility] B STREP CULTUREon 04-23-2022. agalactiae Ag [...] Tetracycline >=16 R F Vancomycin =0.5 S FNormalChildren'S Hospital Of ColumbusComment on above:Performed By: #### GBSCX ####[facility] [address] [place], [place] [address]Dm. Edward GillUS PREG BIOPHY W NON STRESSon 26-25-5080SL PREG BIOPHY W NON STRESSEXAMINATION: US PREG [...] Electronically authenticated by: HUMERA KIM Date: 2022-04-17 17:[address] [place] [address] PREG GROWTHon 24-19-8639IH PREG GROWTHEXAMINATION: US PREG GROWTH HISTORY: Gestational [...] Electronically authenticated by: HUMERA KIM Date: 2022-04-17 16:49[facility] PREG BIOPHY W NON STRESSon 94-58-0957FD PREG BIOPHY W NON STRESSEXAMINATION: US PREG [...] Electronically authenticated by: HUMERA KIM Date: 2022-04-12 08:56As[facility] County Medical CenterGLUCOSE, BLOOD (POC)on 84-84-9012Zxmncku [Mass/Vol]106 mg/dL Vlrbgkuu08 - 99 mg/dLAdena Regional Medical Center PREG BIOPHY W NON STRESSon 66-40-6844RW PREG BIOPHY W NON STRESSEXAMINATION: US PREG [...] Electronically authenticated by: HUMERA KIM Date: 2022-04-01 16:08[facility] PREG BIOPHY W NON STRESSon 60-85-1990FE PREG BIOPHY W NON STRESSEXAMINATION: US PREG [...] Electronically authenticated by: HUMERA KIM Date: 2022-03-27 08:54NoRegency Hospital Cleveland EastUS PREG GROWTHon 86-30-7593JC PREG GROWTHEXAMINATION: US PREG GROWTH HISTORY: Maternal [...] Electronically authenticated by: HUMERA KIM Date: 2022-03-17 06:04[facility] County Medical CenterTSHon 18-89-8595OEQ1.586 uIU/mLNormal0.358-3.740The [facility] HospitalComment on above:Performed By: #### HIV12 #### [facility] [address] [place] [address] Dr. Edward GillTYPE AND SCREENon 02-04-1592WVOQ AND SCREENNegativeAshtabula County Medical CenterComment on above:Performed By: #### TNS #### [facility] [address] [place] [address] Dr. Edward GillPAP ACOG PANEL 2: 30 to 65on 02-21-2022..NormalThe [facility] HospitalComment on above:Result Comment: Performed at: WBPerformed By: #### [id number] ####[facility] Jnyfjtuwav[address] [place], [place] [address]DrLazara Koenig Gdln ACOG Bgbylsl09-24CvyjksEftBrecksville VA / Crille Hospital on above:Performed By: #### [id number] ####[facility] Wjphtduiuo[address] [place], [place] [address]Dr. Edward GillDIAGNOSIS:CommentMercy Health Defiance Hospital on above:Result Comment: NEGATIVE FOR INTRAEPITHELIAL LESION OR MALIGNANCY. Performed at: WBPerformed By: #### [id number] ####[facility] Njnjbcuvnl[address] [place], [place] [address]Dr. Edward GillHPV AptimaNegativeNormal NegativeThe [facility] on above:Result Comment: This nucleic acid amplification test detects fourteen high-risk HPV types (16,18,31,33,35,39,45,51,52,56,58,59,66,68) without differentiation. Performed at: =GPerformed By: #### [id number] ####[facility] Svexowhbak[address] [place], [place] [address]Dr. Edward GillMethodology:CommentMercy Health Defiance Hospital on above:Result Comment: This liquid based ThinPrep(R) pap test was screened with the use of an image guided system. Performed at: WBPerformed By: #### [id number] ####[facility] Ytdtgouspp[address] [place], [place] [address]Dr. Edward GillNote:CommentMercy Health Defiance Hospital on above:Result Comment: The Pap smear is a screening test designed to aid in the detection of premalignant and malignant conditions of the uterine cervix. It is not a diagnostic procedure and should not be used as the sole means of detecting cervical cancer. Both false-positive and false-negative reports do occur. . Performed at: WBPerformed By: #### [id number] ####[facility] Cbubelntkg[address] [place], [place] [address]Dr. Edward ChangPerformed by:CommentMercy Health Defiance Hospital on above:Result Comment: Zenaida Diop, Python Programmer (ASCP) Performed at: WBPerformed By: #### [id number] ####[facility] Ktzevabdkj[address] [place], [place] [address]Dr. Edward GillSpecimen adequacy:Comment NormalChildren'S Hospital Of ColumbusComment on above:Result Comment: Satisfactory for evaluation. No endocervical component is identified. Performed at: WBPerformed By: #### [id number] ####[facility] Lrhhfdacsy23[address] [place], [place] [address]Dr. Edward GillCHLAMYDIA/GONOCOCCUS LELO (SWAB/URINE/PAPon 26-30-3415Vvxpjhwlm trachomatis, NAANegativeNormalNegativeChildren'S Hospital Of ColumbusComment on above:Performed By: #### CT/NGNA ####[facility] Duqphsutms[address] [place], [place] [address]Dr. Edward Gill Neisseria gonorrhoeae, NAANegativeNormalNegativeChildren'S Hospital Of ColumbusComment on above:Performed By: #### CT/NGNA ####[facility] Utrxknfogw[address] [place], [place] [address]Dr. Edward GillVAGINITIS/VAGINOSIS DNA PROBEon 48-13-7300Stqaqlz speciesNegativeNormalNegativeChildren'S Hospital Of ColumbusComment on above:Performed By: #### VAGINT ####[facility] Aonxtrmnsh[address] [place], [place] [address]Dr. Edward GillGardnerella vaginalisNegativeNormal NegativeThe [facility] HospitalComment on above:Performed By: #### VAGINT ####[facility] Qukwuiiinh[address] [place], [place] [address]Dr. Edward GillTrichomonas vaginalisNegativeNormalNegativeChildren'S Hospital Of Columbus Comment on above:Performed By: #### VAGINT ####[facility] Wfsfavmiwq92[address] [place], [place] [address]Dr. Edward GillTSHon 04-13-9663RJM9.536 uIU/mLNormal0.358-3.740The [facility] HospitalComment on above:Performed By: #### TSH ####[facility] [address] [place], [place] [address]Pz. Edward JairoGLUCOSE - 1HRon 96-05-0596Yrygwrd [Mass/Vol]160 mg/dLCritically high 74-106Children[facility] Hospital Of ColumbusComment on above:Performed By: #### GLU1HR ####[facility] [address] [id number] Edward SepulvedaHon 23-64-2187NAY3.899 uIU/mLNormal0.358-3.740[facility] Comment on above:Performed By: #### HIV12 #### [facility] [address] [address] [address] Edward Garcia, [facility] 15-29-2737Omwbeavucn byUltAshland Community HospitalComment on above:Performed By: #### AAFPM #### [address] [address] Survey And Mapping Technician: Pancho Cano MD [address] [address] Survey And Mapping Technician: Yosvany ArriagaSt. Mary's Medical CenterComment on above:Result Comment: Results for Estimated Due Date: 05 13 22Performed By: #### AAFPM #### [address] [address] Survey And Mapping Technician: Pancho Cano MD [facility] [address] [place] [address] Survey And Mapping Technician: Danelle ArriagaPeoples HospitalComment on above:Performed By: #### AAFPM #### [address] [address] Survey And Mapping Technician: Pancho Cano MD [facility] [address] [place], [place] [id number] Survey And Mapping Technician: Zhang Bledsoe MDGestat Age (exact)15 wks, 2 daysNoPremier Health Miami Valley HospitalComment on above:Performed By: #### AAFPM #### [facility] [address] [place] [address] Survey And Mapping Technician: Pancho Cano MD [address] [id number] Survey And Mapping Technician: Zhang Bledsoe MDIns Req Matern DiabFisher-Titus Medical CenterComment on above:Performed By: #### AAFPM #### [facility] [address] [address] Survey And Mapping Technician: Pancho Cano MD [address] [address] Survey And Mapping Technician: Zhang Bledsoe MDInterpretationScreen [facility] Medical CenterComment on above:Result Comment: (NOTE) INTERPRETATION: SCREEN NEGATIVE for open spina bifida Neural Tube Defects (NTD) Negative Pre-Test Post-Test Cutoff Neural Tube Defects Risks 1:1030 1:2690 1:250 Comments: The risk of an open neural tube defect is less than the screening cut-off. This test was developed and its performance characteristics determined by [facility]. It has not been cleared or approved by the [place] Food and Drug Administration. This test was performed in a CLIA certified laboratory and is intended for clinical purposes.Performed By: #### AAFPM #### [facility] [address] [address] Survey And Mapping Technician: Pancho Cano MD [address] [id number] Survey And Mapping Technician: Osmar Arriagaternal Age at Del36.6 yrAultman Alliance Community HospitalComment on above:Performed By: #### AAFPM #### [facility] [address] [address] Survey And Mapping Technician: Pancho Cano MD [address] [id number] Survey And Mapping Technician: Osmar Arriagakaiser permanente [facility] RaceNonblackNoPremier Health Miami Valley HospitalComment on above:Performed By: #### AAFPM #### [facility] [address] [place] [address] Survey And Mapping Technician: Pancho Cano MD [facility] [address] [place] [address] Survey And Mapping Technician: Osmar Arriagakaiser permanente [facility] Jarkjd730.0 lbs.NormalGenesis HospitalComment on above:Performed By: #### AAFPM #### [facility] [address] [place] [address] Survey And Mapping Technician: Pancho Cano MD [facility] [address] [place] [address] Survey And Mapping Technician: BAKARI Arriaga for AFP1.52NormGreen Cross HospitalComment on above:Performed By: #### AAFPM #### [facility] [address] [place] [address] Survey And Mapping Technician: Pancho Cano MD [address] [address] Survey And Mapping Technician: Zhang Bledsoe MDNumber of FetusesSingletonNoPremier Health Miami Valley HospitalComment on above:Performed By: #### AAFPM #### [facility] [address] [address] Survey And Mapping Technician: Pancho Cano MD [facility] [address] [place] [address] Survey And Mapping Technician: Smith Arriaga's AFP35 ng/mLNormalGenesis HospitalComment on above:Performed By: #### AAFPM #### [facility] [address] [place] [address] Survey And Mapping Technician: Pancho Cano MD [facility] [address] [place] [address] Survey And Mapping Technician: NIKITA ArriagaMercy Health Tiffin Hospital Comment on above:Performed By: #### AAFPM #### [address] [address] Survey And Mapping Technician: Pancho Cano MD [address] [id number] Survey And Mapping Technician: Azucena ArriagaSumma Health Akron CampusComment on above:Result Comment: (NOTE) Initial sample Performed by [facility], [address] [place] [id number] [email or web address].[email or web address], Yayo Moncada MD, PHD, Lab. DirectorPerformed By: #### AAFPM #### [address] [address] Survey And Mapping Technician: Pancho Cano MD [address] [phone] Survey And Mapping Technician: Zhang Bledsoe MDASaint Luke Institute 80-58-7038Hscydne[address] [place], [place] [address]Comment on above:Performed By: #### AAFPM #### [address] [address] Survey And Mapping Technician: Pancho Cano MD [address] [id number] Survey And Mapping Technician: SHIVA ArriagaCleveland Clinic Hillcrest Hospital Comment on above:Performed By: #### AAFPM #### [facility] [address] [address] Survey And Mapping Technician: Pancho Cano MD [address] [id number] Survey And Mapping Technician: Zhang Bledsoe [facility] Comment on above:Performed By: #### AAFPM #### [address] [address] Survey And Mapping Technician: Pancho Cano MD [facility] [address] [place] [address] Survey And Mapping Technician: SHIVA Arriagaonojeanine EggINFORMATION NOT PROVIDEDAultman Alliance Community HospitalComment on above:Performed By: #### AAFPM #### [facility] [address] [place] [address] Survey And Mapping Technician: Pancho Cano MD [facility] [address] [place] [address] Survey And Mapping Technician: Zhang Bledsoe MDEstimflagstaff medical center Due [id number] Alliance Community HospitalComment on above:Performed By: #### AAFPM #### [facility] [address] [address] Survey And Mapping Technician: Pancho Cano MD [facility] [address] [place] [address] Survey And Mapping Technician: Zhang Bledsoe MDJamaica Plain Va Medical Center HistoryNegativeAultman Alliance Community HospitalComment on above:Performed By: #### AAFPM #### [facility] [address] [place] [address] Survey And Mapping Technician: Pancho Cano MD [facility] [address] [place] [address] Survey And Mapping Technician: Zhang Bledsoe MDIn Vitro FertalizatINFORMATION NOT PROVIDEDSumma Health Wadsworth - Rittman Medical CenterComment on above:Performed By: #### AAFPM #### [facility] [address] [place] [address] Survey And Mapping Technician: Pancho Cano MD [facility] [address] [place] [address] Survey And Mapping Technician: Zhang Bledsoe MDSAMARITAN LEBANON COMMUNITY [facility] [id number] Alliance Community HospitalComment on above:Performed By: #### AAFPM #### [facility] [address] [place] [address] Survey And Mapping Technician: Pancho Cano MD [facility] [address] [place] [address] Survey And Mapping Technician: Zhang Bledsoe MDMaternal [id number] Alliance Community HospitalComment on above:Performed By: #### AAFPM #### [facility] [address] [place] [address] Survey And Mapping Technician: Pancho Cano MD [facility] [address] [place] [address] Survey And Mapping Technician: Osmar Arriagaternal Adkhfi018VjokgjDcaggAultman Alliance Community HospitalComment on above:Performed By: #### AAFPM #### [facility] [address] [place] [address] Survey And Mapping Technician: Pancho Cano MD [facility] [address] [place] [address] Survey And Mapping Technician: BAKARI Arriagaonochorionic TwinsEast Ohio Regional HospitalComment on above:Performed By: #### AAFPM #### [facility] [address] [place] [address] Survey And Mapping Technician: Pancho Cano MD [facility] [address] [place] [address] Survey And Mapping Technician: Zhang Bledsoe [facility] INFIRMARYatient Weight UnitsLBSAultman Alliance Community HospitalComment on above:Performed By: #### AAFPM #### [facility] [address] [place] [address] Survey And Mapping Technician: Pancho Cano MD [facility] [address] [place] [address] Survey And Mapping Technician: LUIS Arriagaace (Maternal)WHITEAultman Alliance Community HospitalComment on above:Performed By: #### AAFPM #### [facility] [address] [place] [address] Survey And Mapping Technician: Pancho Cano MD [facility] [address] [place] [address] Survey And Mapping Technician: Jay Arriaga SpecimenINFORMATION NOT [facility] HospitalComment on above:Performed By: #### AAFPM #### [facility] [address] [place] [address] Survey And Mapping Technician: Pancho Cano MD [facility] [address] [place] [address] Survey And Mapping Technician: Zhang Bledsoe MDValproic/CarbamazepINFORMATION NOT [facility] HospitalComment on above:Performed By: #### AAFPM #### [facility] [address] [address] Survey And Mapping Technician: Pancho Cano MD [facility] [address] [place] [address] Survey And Mapping Technician: JIMENEZ Arriaga Single Marker Scrn, Maternal, Serumon 44-94-8652FulBwiwuaJames E. Van Zandt Veterans Affairs Medical CenterCarrier Study Non-ProMedicaon 40-16-0717IubGqtbvo[address] [place] [address] MISCELLANEOUS TESTINGon 65-22-9859Emgm Out ReportFWD TO [facility] [address] [place], [place] [address]Test NameNATERA LEWISGALE HOSPITAL PULASKIMiscellaneouson 22-16-6329Txay Out ReportFWD TO [facility] [address] [place], [place] [address]Comment on above:Performed By: #### CMIS #### [facility] [address] [place] [address] Survey And Mapping Technician: Pancho Cano MDTest Toledo HospitalComment on above:Performed By: #### CMIS #### [facility] [address] [place] [address] Survey And Mapping Technician: RAJ Choi B SURFACE ANTIGEN SCREENon 70-18-8600RHpWr ScreenNegativeNormalNegativeThe [facility] on above:Performed By: #### HIV12 #### [facility] [address] [place] [address] Dr. Edward FranklinPATITIS C VIRUS AB W/ REFLEX QUANTon 32-48-6735ORF AB<0.1Normal 0.0-0.9The [facility] on above:Performed By: #### HCVPCRR ####[facility] [address] [address]DrLazara GillInterpretation:CommentNormalThe [facility] on above: Result Comment: Negative Not infected with HCV, unless recent infection is suspected or other evidence exists to indicate HCV infection.Performed By: #### HCVPCRR ####[facility] [address] [address]DrLazara GillHIV 1 AND 2 WITH REFLEXon 72-19-8019UUQ Screen 4th Generation wRfx Non-ReactiveNormalNon ReactiveThe [facility] on above:Result Comment: HIV Negative HIV-1/HIV-2 antibodies and HIV-1 p24 antigen were NOT detected. There is no laboratory evidence of HIV infection.Performed By: #### HIV12 #### [facility] [address] [place] [address] Dr. Edward GillRPJeanine QUANTon 36-26-3189Cldcc Plasma Reagin, QuantNon-Reactive NormalNonRea<1:1The [facility] on above:Result Comment: Please Note: This test does not meet current guidelines for screening and diagnosis of syphilis. This test is intended for following treatment response in patients being treated for syphilis infection. To screen for syphilis infection, a reflex cascade that includes both RPR and a treponema-specific assay should be utilized, such as Treponema pallidum (Syphilis) Screening [place] (603160) or Rapid Plasma Reagin (RPR) Test With Reflex to Quantitative RPR and Confirmatory Treponema pallidum Antibodies (178330).Performed By: #### RPRQ ####[facility] [address] [address]Dr. Edward OspinaBELLA AB IGG on 68-26-0296Chzfdmb Antibodies, IgG1.02 indexNormalImmune >0.99The [facility] HospitalComment on above:Result Comment: Non-immune <0.90 Equivocal 0.90 - 0.99 Immune >0.99Performed By: #### RUBIGG ####[facility] [address] [address]Dr. Edward AlfaroC AUTO DIFFon 97-53-3204YBAW # 0.0 103/ulNormal0.0-0.1The [facility] HospitalComment on above:Performed By: #### HIV12 #### [facility] [address] [place] [address] Dr. Edward GillBasophils/100 WBC (Bld)0.3 %Normal0.2-2.0[facility] Comment on above:Performed By: #### HIV12 #### [facility] [address] [place] [address] Dr. Edward Traore #0.1 103/ulNormal0.0-0.7The [facility] HospitalComment on above: Performed By: #### HIV12 #### [facility] [address] [place] [address] Dr. Ewdard Calhounosinophils/100 WBC (Bld)0.6 %Critically low0.9-7.0The [facility] HospitalComment on above:Performed By: #### HIV12 #### [facility] [address] [place] [address] Dr. Edward Calhounrythrocyte distribution width (RBC) [Ratio]14.1 %Qgahhy04.0-15.0 The [facility] HospitalComment on above:Performed By: #### HIV12 #### [facility] [address] [place] [address] Dr. Edward GillHematocrit (Bld) [Volume fraction]36.2 %Vbtayy73.0-48.0The [facility] HospitalComment on above:Performed By: #### HIV12 #### [facility] [address] [place] [address] Dr. Edward GillHemoglobin (Bld) [Mass/Vol]12.5 g/cDJezgzv98.0-16.0The [facility] HospitalComment on above:Performed By: #### HIV12 #### [facility] [address] [place] [address] Dr. Edward Ray #0.05 10e3/ulCritically high0.00-0.03[facility] Comment on above:Performed By: #### HIV12 #### [facility] [address] [place] [address] Dr. Edward Ray %0.4 %Normal0.0-0.5The [facility] HospitalComment on above: Performed By: #### HIV12 #### [facility] [address] [place] [address] Dr. Edward Velásquez #2.7 103/ulNormal1.2-3.8The [facility] HospitalComment on above:Performed By: #### HIV12 #### [facility] [address] [place] [address] Dr. Edward Alvarezhocytes/100 WBC (Bld)23.2 %Extown76.5-60.0The [facility] HospitalComment on above:Performed By: #### HIV12 #### [facility] [address] [place] [address] Dr. Edward SimmonsUAL DIFF REQNONormalThe [facility] HospitalComment on above: Performed By: #### HIV12 #### [facility] [address] [place] [address] Dr. Edward June (RBC) [Entitic mass]30.6 mgDqmzxg87.7-34.0The [facility] HospitalComment on above:Performed By: #### HIV12 #### [facility] [address] [place] [address] Dr. Edward June (RBC) [Mass/Vol]34.5 g/fOVzttfb11.9-35.2The [facility]ickory HospitalComment on above:Performed By: #### HIV12 #### [facility] [address] [address] [address] Edward JuneV (RBC) [Entitic vol]88.7 hWYxfaup16.0-99.0The [facility] HospitalComment on above:Performed By: #### HIV12 #### [facility] [address] [place] [address] Dr. Edward Rosas #0.7 103/ulNormal0.3-0.8The [facility] HospitalComment on above:Performed By: #### HIV12 #### [facility] [address] [place] [address] Dr. Edward Ignacioocytes/100 WBC (Bld)5.8 %Normal1.7-12.0[facility] Comment on above:Performed By: #### HIV12 #### [facility] [address] [place] [address] Dr. Edward Guevara #8.0 103/ulCritically high1.4-6.5[facility] Comment on above:Performed By: #### HIV12 #### [facility] [address] [place] [address] Dr. Edward Moralesutrophils/100 WBC (Bld)69.7 %Unkvhp89.0-75.0The [facility] HospitalComment on above:Performed By: #### HIV12 #### [facility] [address] [place] [address] Dr. Edward Serranolet mean volume (Bld) [Entitic vol]9.3 fLCritically low 9.5-13.5ThChildren's Hospital for RehabilitationComment on above:Performed By: #### HIV12 #### [facility] [address] [place] [address] Dr. Edward GillPLT338 103/hjUvzdso249-680Zqf [facility] HospitalComment on above: Performed By: #### HIV12 #### [facility] [address] [place] [address] Dr. Edward GillRBC4.08 106/ulCritically low4.20-5.40The [facility] on above:Performed By: #### HIV12 #### [facility] [address] [address] [address] Edward SaulBC11.4 103/ulCritically high4.0-11.0The [facility] Medical Centerment on above:Performed By: #### HIV12 #### [facility] [address] [place] [address] Dr. Edward GillCULTJEYSON URINEon 92-46-8438TJTWMOH URINECulture Observations: LIGHT GROWTH OF MIXED GENITAL MARTHA. NO POTENTIAL PATHOGENS SEEN.NormalThe [facility] Medical Centerment on above:Performed By: #### URCX #### [facility] [address] [place] [address] Dr. Edward GillGLYCOHEMOGLOBIN A1Con 70-80-4605YCJ RECOMMENDATIONSEE BELOWNormal The [facility] HospitalComselect [facility] hospital-[facility] on above:Result Comment: ADA RECOMMENDED LIMIT 4.0 - 6.0 ADA THERAPEUTIC TARGET < 7.0 ACTION SUGGESTED > 7.0Performed By: #### A1C #### [facility] [address] [place] [address] Dr. Edward GillGlucose [Mass/Vol]117 mg/dLNormalThe [facility] HospitalComselect specialty hospital-[facility] on above:Performed By: #### A1C #### [facility] [address] [place] [address] Dr. Edward GillHbA1c (Bld) [Mass fraction]5.7 %Normal4.5-6.2The [facility] on above:Performed By: #### A1C #### [facility] [address] [place] [address] Dr. Edward Nair BOX TEST PT SEND OUTon 00-23-0285IVNP TO REF LAB10/25/[address] [facility] on above:Performed By: #### HIV12 #### [facility] [address] [place] [address] Dr. Edward GillTSHodru 19-67-4715CBE7.700 uIU/mLNormal0.358-3.740The Piyush HospitalComment on above:Performed By: #### TSH ####[facility] [address] [id number] GillTYPE AND SCREEN on 34-42-1718PZPF AND SCREENNegativeMercy Health Def[facility] Hospital on above: Performed By: #### TNS ####[facility] [address] [address]Dr.Edward GillUS PREG TVon 98-52-1417KV PREG TV EXAMINATION: US PREG TV HISTORY: [...] Electronically authenticated by: HUMERA KIM Date: 2021-09-23 10:27[facility] CenterPREG QUANT HCGon 86-13-7803OEM SVHYS3420 mIU/mLNormalChildren'S Hospital Of ColumbusComselect specialty hospital-[facility] on above:Performed By: #### HIV12 #### [facility] [address] [address] [address] Edward GillHCG RANGESEE BELOWAshtabula County Medical CenterComment on above: Result Comment: 5-50 0-1 WEEK 40-300 1-2 WEEKS 100-1,000 2-3 WEEKS 500-6,000 3-4 WEEKS 5,000-200,000 1-2 MONTHS 10,000-100,000 2-3 MONTHS 3,000-50,000 2ND TRIMESTER 1,000-50,000 3RD TRIMESTERPerformed By: #### HIV12 #### [facility] [address] [address] [address] Edward GillCHEMISTRYOrdered By: SYSTEM SYSTEM on 49-03-5565Awzvv gap [Moles/Vol]15 mmol/LNormal6 - 16 mEq/LFTMC RemisolCalcium [Mass/Vol]9.5 mg/dL Normal8.9 - 11.1 mg/dLFT RemisolChloride [Moles/Vol]102 mmol/KKrknom956 - 111 mmol/LFTMC RemisolCO2 [Moles/Vol]22 mmol/DFythan12 - 31 mmol/LFTMC Remisol Creatinine [Mass/Vol]0.9 mg/dLNormal0.5 - 1.3 mg/dLFT RemisolGFR/1.73 sq M.predicted among blacks MDRD (S/P/Bld) [Vol rate/Area]mL/min/1.73 v8Fozkcp >=59mL/min/1.73 m2[facility] Chem SGFR/1.73 sq M.predicted among non-blacks MDRD (S/P/Bld) [Vol rate/Area]mL/min/1.73 m2Uuwdjk>=59mL/min/1.73 m2[facility] Chem S Glucose [Mass/Vol]85 mg/xCKorvax44 - 199 mg/dLFT RemisolPotassium [Moles/Vol] 3.9 mmol/LNormal3.5 - 5.3 mmol/LFTMC RemisolSodium [Moles/Vol]135 mmol/LNormal 135 - 145 mmol/LFTMC RemisolUrea nitrogen [Mass/Vol]6 mg/dLNormal5 - 21 mg/dL [facility] RemisolUrea nitrogen/Creatinine [Mass ratio]7 mg/mgLow10 - 20FT Remisol HEMATOLOGYOrdered By: SYSTEM SYSTEM on 37-40-3581Ksimgbttl/100 WBC (Bld)0.5 % Normal0.0 - 2.0 %[facility] HemeAutoSSBasophils/Leukocytes Auto (Bld) [Pure # fraction]0.0 E9/LNormal0.0 - 0.2 E9/LFTMC HemeAutoSSEosinophils/100 WBC (Bld)0.6 %Normal0.0 - 8.0 %[facility] HemeAutoSSEosinophils/Leukocytes Auto (Bld) [Pure # fraction]0.1 E9/LNormal0.0 - 0.5 E9/LFTMC HemeAutoSSLymphocytes/100 WBC (Bld) 36.8 %Uffllu36.0 - 50.0 %[facility] HemeAutoSSLymphocytes/Leukocytes Auto (Bld) [Pure # fraction]2.9 E9/LNormal1.0 - 4.0 E9/LFTMC HemeAutoSSMonocytes/100 WBC (Bld)8.7 %Normal4.0 - 14.0 %[facility] HemeAutoSSMonocytes/Leukocytes Auto (Bld) [Pure # fraction]0.7 E9/LNormal0.2 - 1.0 E9/LFTMC HemeAutoSSNeutrophils/100 WBC (Bld) 53.4 %Ewfdab03.0 - 75.0 %[facility] HemeAutoSSNeutrophils/Leukocytes Auto (Bld) [Pure # fraction]4.2 E9/LNormal2.0 - 7.5 E9/LFTMC HemeAutoSSHEMATOLOGYOrdered By: Isha Yates on 68-37-0598Xcqhoxdonia distribution width (RBC) [Ratio]14.6 %High10.9 - 14.2 %[facility] HemeAutoSSHematocrit (Bld) [Volume fraction]36.4 %Normal 34.0 - 46.0 %[facility] HemeAutoSSHemoglobin (Bld) [Mass/Vol]12.6 g/sYIotzvx15.0 - 16.0 gm/dLFTMC HemeAutoSSMCH (RBC) [Entitic mass]29.9 tdOeokrt10.0 - 34.0 pgFTMC HemeAutoSSMCHC (RBC) [Mass/Vol]34.6 g/yYAfmzmd64.4 - 36.0 gm/dLFTMC HemeAutoSS MCV (RBC) [Entitic vol]86.6 vZJbdslc09.0 - 100.0 fLFTMC HemeAutoSSPlatelet mean volume (Bld) [Entitic vol]8.2 fLNormal6.4 - 10.8 fLFTMC HemeAutoSSPlatelets (Bld) [#/Vol]367.0 E9/XYgljsj208.0 - 500.0 E9/LFTMC HemeAutoSSRBC (Bld) [#/Vol] 4.2 E12/LLow4.3 - 5.9 E12/LFTMC HemeAutoSSWBC corrected for nucl RBC Auto (Bld) [#/Vol]7.9 E9/LNormal4.0 - 11.0 E9/LFTMC HemeAutoSSPREG QUANT HCGon 08-29-2021 HCG JKMXK726 mIU/mLNormalChildren'S Hospital Of ColumbusComment on above:Performed By: #### PREGQNT ####[facility] [address] [address]Dr. Edward Lim [facility] Medical CenterComment on above:Result Comment: 5-50 0-1 WEEK 40-300 1-2 WEEKS 100-1,000 2-3 WEEKS 500- 6,000 3-4 WEEKS 5,000-200,000 1-2 MONTHS 10,000-100,000 2-3 MONTHS 3,000-50,000 2ND TRIMESTER 1,000-50,000 3RD TRIMESTERPerformed By: #### PREGQNT ####[facility] [address] [place], [place] [address]Dr. Edward GillPREWily QUANT HCGon 90-83-2230UQY QUANT99 mIU/mLNSouthwest General Health CenterComment on above:Performed By: #### HIV12 #### [facility] [address] [address] [address] Edward Lim [facility] Medical CenterComselect specialty hospital-[facility] on above: Result Comment: 5-50 0-1 WEEK 40-300 1-2 WEEKS 100-1,000 2-3 WEEKS 500-6,000 3-4 WEEKS 5,000-200,000 1-2 MONTHS 10,000-100,000 2-3 MONTHS 3,000-50,000 2ND TRIMESTER 1,000-50,000 3RD TRIMESTERPerformed By: #### HIV12 #### [facility] [address] [address] [address] Edward Cross QUANT HCGon 13-15-5876APF QUANT37 mIU/mLNSouthwest General Health CenterComselect specialty hospital-fl[facility] on above:Performed By: #### PREGQNT ####[facility] [address] [place], [place] [address]Dr. Edward Lim RANGESEE BELOWNormalThe [facility]ickory HospitalComment on above:Result Comment: 5-50 0-1 WEEK 40-300 1-2 WEEKS 100-1,000 2-3 WEEKS 500-6,000 3-4 WEEKS 5,000-200,000 1-2 MONTHS 10,000-100,000 2-3 MONTHS 3,000-50,000 2ND TRIMESTER 1,000-50,000 3RD TRIMESTERPerformed By: #### PREGQNT ####[facility] [address] [address]DrLazara Leon ChangCHEMISTRYOrdered By: SYSTEM SYSTEM on 58-75-7887Jujqkxc [Mass/Vol]4.5 g/dLNormal3.3 - 5.0 gm/dLFTMC Remisol Albumin/Globulin [Mass ratio]1.2 {ratio}Normal1.1 - 2.2FTMC RemisolALP [Catalytic activity/Vol]53 [iU]/pIvmpkp09 - 98 Int._Unit/LFTMC RemisolALT No additional P-5'-P [Catalytic activity/Vol]24 [iU]/dNormal6 - 46 Int._Unit/LFTMC RemisolAnion gap [Moles/Vol]13 mmol/LNormal6 - 16 mEq/LFTMC RemisolAST [Catalytic activity/Vol]20 [iU]/dNormal5 - 43 Int._Unit/LFTMC RemisolBilirubin [Mass/Vol]0.6 mg/dLNormal0.0 - 1.1 mg/dLFTMC RemisolCalcium [Mass/Vol]9.4 mg/dL Normal8.9 - 11.1 mg/dLFTMC RemisolChloride [Moles/Vol]97 mmol/CPab728 - 111 mmol/LFTMC RemisolCO2 [Moles/Vol]24 mmol/POubkef18 - 31 mmol/LFTMC Remisol Creatinine [Mass/Vol]0.8 mg/dLNormal0.5 - 1.3 mg/dLFTMC RemisolGFR/1.73 sq M.predicted among blacks MDRD (S/P/Bld) [Vol rate/Area]mL/min/1.73 w8Ciqgvz >=59mL/min/1.73 m2FT Chem SGFR/1.73 sq M.predicted among non-blacks MDRD (S/P/Bld) [Vol rate/Area]mL/min/1.73 o9Mfmcqw>=59mL/min/1.73 m2[facility] Chem S Globulin (S) [Mass/Vol]3.7 g/dLNormal1.4 - 4.0 gm/dLFTMC RemisolGlucose [Mass/Vol]74 mg/xIMasprd15 - 199 mg/dLVAL[facility] [place] RemisolMagnesium [Mass/Vol]2.0 mg/dL Normal1.3 - 2.4 mg/dLFTMC RemisolPotassium [Moles/Vol]3.5 mmol/LNormal3.5 - 5.3 mmol/LFTMC RemisolProtein [Mass/Vol]8.2 g/dLHigh6.0 - 7.8 gm/dLFT Remisol Sodium [Moles/Vol]130 mmol/UOsc234 - 145 mmol/LFTMC RemisolTSH Qn4.56 m[IU]/L Normal0.34 - 5.60 mcIU/mLVAL[facility] [place] RemisolUrea nitrogen [Mass/Vol]7 mg/dLNormal5 - 21 mg/dLFTMC RemisolUrea nitrogen/Creatinine [Mass ratio]9 mg/mgLow10 - 20FTMC RemisolHEMATOLOGYOrdered By: SYSTEM SYSTEM on 31-89-7567Gmtgjrude/100 WBC (Bld) 0.3 %Normal0.0 - 2.0 %[facility] HemeAutoSSBasophils/Leukocytes Auto (Bld) [Pure # fraction]0.0 E9/LNormal0.0 - 0.2 E9/LFTMC HemeAutoSSEosinophils/100 WBC (Bld)0.5 %Normal0.0 - 8.0 %[facility] HemeAutoSSEosinophils/Leukocytes Auto (Bld) [Pure # fraction]0.0 E9/LNormal0.0 - 0.5 E9/LFTMC HemeAutoSSLymphocytes/100 WBC (Bld) 35.9 %Rbyojt45.0 - 50.0 %[facility] HemeAutoSSLymphocytes/Leukocytes Auto (Bld) [Pure # fraction]3.2 E9/LNormal1.0 - 4.0 E9/LFTMC HemeAutoSSMonocytes/100 WBC (Bld)8.8 %Normal4.0 - 14.0 %[facility] HemeAutoSSMonocytes/Leukocytes Auto (Bld) [Pure # fraction]0.8 E9/LNormal0.2 - 1.0 E9/LFTMC HemeAutoSSNeutrophils/100 WBC (Bld) 54.5 %Jsaqdd50.0 - 75.0 %[facility] HemeAutoSSNeutrophils/Leukocytes Auto (Bld) [Pure # fraction]4.8 E9/LNormal2.0 - 7.5 E9/LFTMC HemeAutoSSHEMATOLOGYOrdered By: Trena Castro on 46-67-8227Omaaijuitut distribution width (RBC) [Ratio]14.1 % Qwyqwu35.9 - 14.2 %[facility] HemeAutoSSHematocrit (Bld) [Volume fraction]38.5 %Normal 34.0 - 46.0 %[facility] HemeAutoSSHemoglobin (Bld) [Mass/Vol]13.1 g/eAYcphco24.0 - 16.0 gm/dLFTMC HemeAutoSSMCH (RBC) [Entitic mass]29.4 iyMvjkiu31.0 - 34.0 pgFTMC HemeAutoSSMCHC (RBC) [Mass/Vol]34.1 g/fCTqobje68.4 - 36.0 gm/dLFTMC HemeAutoSS MCV (RBC) [Entitic vol]86.0 iOYflbcv45.0 - 100.0 fLFTMC HemeAutoSSPlatelet mean volume (Bld) [Entitic vol]8.3 fLNormal6.4 - 10.8 fLFTMC HemeAutoSSPlatelets (Bld) [#/Vol]334.0 E9/RQpwjyt004.0 - 500.0 E9/LFTMC HemeAutoSSRBC (Bld) [#/Vol] 4.5 E12/LNormal4.3 - 5.9 E12/LFTMC HemeAutoSSWBC corrected for nucl RBC Auto (Bld) [#/Vol]8.9 E9/LNormal4.0 - 11.0 E9/LFTMC HemeAutoSSOB/RESEARCH AND DEVELOPMENT TESTER - Office Visiton [id number]/RESEARCH AND DEVELOPMENT TESTER - Office VisitChief ComplaintComplains of: heavy bleeding Declines possum trapper, Rukhsanacecily Salomon, ROSE History of Present IllnessSanna [...] stroke 07/2017 PSH as above POB- 2007 [id number] 17week loss subchorionic h [id number] 39weeks bleeding at 5weeks for 2 weeks diet [id number] calories exercise none 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 Review [...] History History of Oral Surgery Tooth Extraction [place] Tooth Family History No pertinent family history Family history of cerebrovascular accident (CVA) (V17.1) (Z82.3) Family history of diabetes mellitus (V18.0) (Z83.3) Family history of cerebrovascular accident (CVA) (V17.1) (Z82.3) Family history of cerebrovascular accident (CVA) (V17.1) (Z82.3) Allergies No Known Drug Allergies Recorded By: Susie Salomon; 11/08/2017 4:19:42 PM Current Meds Ciprofloxacin HCl - 500 MG Oral Tablet;Ther apy: 91Bbj8833 to Recorded Dispense: 0 Days ; #: Sufficient Tablet; Refill: 0; BUBBA = N; Record; Last Updated By: Susie Salomon; 11/08/2017 4:19:42 PM Plavix 75 MG Oral Tablet;Therapy: 63Ryc5664 to Recorded Dispense: 0 Days ; #: Sufficient Tablet; Refill: 0; BUBBA = N; Record; Last Updated By: Susie Salomon; 11/08/2017 4:19:42 PM Provera 10 MG Oral Tablet;Therapy: 59Xgd6682 to Recorded Dispense: 0 Days ; #: Sufficient Tablet; Refill: 0; BUBBA = N; Record; Last Updated By: Susie Salomon; 11/08/2017 4:19:42 PM Vitals Vital Signs Recorded: 34Zye0915 04:49NLYnobkagb676Eacqmoums59Auitbs8 ft 6 uxXdqvfz189 lb BMI Tpuxqujwmw96.57BSA Calculated1.5VAY51Mte3994Vyox Scale6-7 Physical ExamConstitutional: Alert and in no acute distress. Well developed, well nourished. Head and Face: Head and face: Normal. Psychiatric: Alert and oriented x 3. Affect normal to patient baseline. Mood: Appropriate. Diagnoses/Problems Anemia (285.9) (D64.9) Asthma (493.90) (J45.909) Depression with anxiety (300.4) (F41.8) History of Oral Surgery Tooth Extraction [place] Tooth No pertinent family history : Mother [...] GIDeclines STI testing todayWeight gain, offered a energy and sustainability manager consult and she declined. Encouraged exercise. Signatures Electronically signed by : RICHARD Ulrich; Nov 12 2017 8:46PM EST (Author)NormalUH TouchworksAntiphospholipid Abs IgG/IgMon [id number] [id number] GPLCritically high0-14Kit Carson County Memorial HospitalComment on above:Result Comment: INTERPRETIVE INFORMATION: High- Specificity Antiphospholipid Antibody,IgG14 GPL or less......[id number] 26 GPL.........Indeterminate Suggest repeat testing in 12 weeks27 GPL or greater. ..PositiveHigh-specificity antiphospholipid IgG and IgM antibodies are directedagainsta mixture of phosphatidylserine, phosphatidic acid, and beta- 2glycoprotein 1antigens. These antibodies are more specific than cardiolipin IgG andIgMantibodies in the diagnosis of antiphospholipid syndrome (APS). Antiphospholipid Ab-IgM6 MPLNormal034 [address]ters StreetComment on above:Result Comment: INTERPRETIVE INFORMATION: High-Specificity Antiphospholipid Antibody,IgM14 MPL or less......Ubsxuwpr24 37 MPL.........Indeterminate Suggest repeat testing in 12 weeks38 MPL or greater. ..PositiveHigh-specificity antiphospholipid IgG and IgM antibodies are directedagainsta mixture of phosphatidylserine, phosphatidic acid, and beta- 2glycoprotein 1antigens. These antibodies are more specific than cardiolipin IgG andIgMantibodies in the diagnosis of antiphospholipid syndrome (APS).Performed by [address] [place] [address],[place] [address] blf.Cambiatta, Zhang Bledsoe MD - Lab. [facility] Miscellaneous test 1on 05-28-2017 Miscellaneous Test 1SEE NOTEAdventHealth ParkerComment on above: Result Comment: Test name [...] Additional information and recommendations for testingmay befound [email or web address] [email or web address].Performed by [address] [facility] [place] [address] doi.Cambiatta,Zhang Bledsoe MD - Lab. DirectorCardiolipin Antibodies, IgA, IgG, IgMon 55-41-6709Sihvsrhrjcs Ab IgA0 APLNormal0-11Kit [facility] HospitalComment on above:Result Comment: INTERPRETIVE INFORMATION: Cardiolipin Antibodies, IgA0-11 APL: Gifyurix12-28 APL: In zhurobsdvek91-92 APL: Low to Moderately Dzqbkokt75 APL or above: High PositivePerformed by [address] [place] [address] cey.CambiattaZhang MD - Lab. DirectorCardiolipin Ab IgG 111 GPLCritically high0-14Kit [facility] HospitalComment on above:Result Comment: INTERPRETIVE INFORMATION: Anti-Cardiolipin IgG Ab0-14 GPL: Goyhamct84- 19 GPL: Khrevfcgvatuk77-09 GPL: Low to Moderately Yjafniuz18 GPL or above: High PositiveThe persistent presence [...] other criteria phospholipid antibody tests.Cardiolipin Ab IgM10 MPLNormal0-12[facility] HospitalComment on above:Result Comment: INTERPRETIVE INFORMATION: Anti-Cardiolipin IgM0-12 MPL: Fgueircw84-93 MPL: Pkerqcctkttwk67-71 MPL: Low to Moderately Lxhwokyb23 MPL or above: High PositiveThe persistent presence [...] and/orothercriteria phospholipid antibody tests.Jennifer-Simpson Virus by PCRon 47-76-3743Jgurlxn Simpson Virus by PCRNot DetectedNoColorado Mental Health Institute at PuebloComment on above:Result Comment: NOT DETECTED - A negative result does not rule out thepresence of PCR inhibitors inthe patient specimen or assayspecific nucleic acid in concentrations below the level ofdetection bythe assay.INTERPRETIVE INFORMATION: Jennifer Simpson Virus by PCRTest developed and characteristics determined by [address]. SeeCompliance Statement A: Cambiatta/CSPerformed by [address] [place] [address] qji.Cambiatta, Zhang Bledsoe MD - Lab. DirectorEpstein Simpson Virus SourceCSFAdventHealth ParkerOligoclonal Band Profileon 04-13-6806Aurijom7720 mg/qMLiobby7043-8383DifdzKit Carson County Memorial HospitalAlbumin 5.2 ratioNormal0.0-9.0[facility] HospitalAlbumin, CSF20 mg/dLNormal 0-35Kit [facility] HospitalCSF IgG Synthesis Rate<0.0Normal<=8.0[facility] HospitalCSF Oligoclonal BandsNegativeNormalNegativeKit Carson County Memorial HospitalCSF Oligoclonal Bands Number0 BandsNormal0-1MAdventHealth Castle RockGlobulin1060 mg/lFWomhcq660-2148SawcdKit Carson County Memorial Hospital Comment on above:Result Comment: REFERENCE INTERVAL: Immunoglobulin GAccess complete set of age- and/or gender-specific reference intervalsforthis test in the [employer] [facility] Test Directory (Cambiatta).IgG Index0.45 ratioNormal 0.28-0.66Kit [facility] HospitalImmunoglobulin G CSF2.5 mg/dLNormal0.0-6.0 [facility] HospitalINR Coag RelTime (Bld)0.12 {INR}Normal0.09-0.25 [facility] HospitalInterpretationSee NoteNoColorado Mental Health Institute at PuebloComment on above:Result Comment: Isoelectric focusing/immunofixation reveals no oligoclonal bands ineitherthe CSF orthe serum. This is considered to be a negative result foroligoclonal bands. Approximately 5 percentof patients with clinicallydefinitive multiple sclerosis will have a negative result.Performed by [address] [place] [address] ttz.Cambiatta, Zhang Bledsoe MD - Lab.DirectorMyelin Basic Protein, CSFon 49-53-4301Tzfzec Basic Protein1.82 ng/mLNormal0.00-5.50[facility] HospitalComment on above:Result Comment: INTERPRETIVE INFORMATION: Myelin Basic ProteinTest developed and characteristics determined by [address]. SeeCompliance Statement D: Cambiatta/CSPerformed by [address] [place] [address] nrr.Cambiatta, Zhang Bledsoe MD - Lab. [facility] Miscellaneous test 1on 13-25-3270Dnfmyhv Prompt 18854VwefkpNgcmlAdventHealth ParkerComment on above:Result Comment: Corrected result; [place] [id number] on 05/25/2017 at 13:14 by V/AUT CALife is [employer] Miscellaneous test 1on 82-74-9550Arhnzvx Uoqojy01706WyeuueOdwqzAdventHealth ParkerComment on above:Result Comment: DS DNACSF Cell Counton 05-25-2017 CSF no diffsee [facility] CenterComment on above:Result Comment: Differential not performed -Total Nucleated cellsCSF AppearanceClear NormalKit Carson County Memorial HospitalCSF ColorColorlessAdventHealth ParkerCSF Tube NumberTube 4AdventHealth ParkerFluid Clot Evaluationsee belowAdventHealth ParkerComment on above:Result Comment: No Clots SeenTotal Nucleated Cells0 K/uLNormal0-8[facility] HospitalTotal Red Blood Cells0 K/uLAdventHealth ParkerCSF Glucose on 71-24-1763OKC Rwqhunv59 mg/cFZhxivp86-84UipkpKit Carson County Memorial HospitalCSF Proteinon 70-53-7547YCG Vngkzer91 mg/kXCodmfj17-54UzsdmKit Carson County Memorial Hospital Creatine Kinaseon 90-33-0909Xiyfjilb kinase (CK)71 U/LNormal0-170Kit [facility] HospitalCulture, CSFon 17-13-8976Cwirpjn, CSFORDER#: [id number] ORDERED BY: VERNA MONGE: CSF (Spinal Fluid) CSF COLLECTED: 05/25/17 13:25ANTIBIOTICS AT AMARILYS.: RECEIVED : 05/25/17 13:25Gram Stain Direct FINAL 05/25/17 15:30 No WBC's, No organisms seenCulture, CSF FINAL 05/28/17 09:04 No growth at 72 hours Advent[facility] ParkerFL LUMBAR PUNCTURE DIAGon 18-17-2805UF LUMBAR PUNCTURE DIAGFL LUMBAR PUNCTURE DIAG : [...] LUMBAR PUNCTURE.Interpreted by:NIKITA Mezaigned by:Humera Covarrubias MD05/25/17inal resultNormalKit Carson County Memorial Hospital Homocysteineon 43-52-2112Brhdvvmqbuef7.1 umol/LNormal0.0-15.0[facility] HospitalPartial Thromboplastin Timeon 93-19-8236fZTT66.7 eMckvyr42.6-35.4 [facility] HospitalComment on above:Result Comment: Heparin Therapeutic Range: 38.8 - 54.6 seconds.Prothrombin Timeon 17-62-2951DJA Coag RelTime (PPP)1.0 {INR}[facility]ventHealth ParkerComment on above:Result Comment: Recommended INR therapeutic ranges [...] secProthrombin time (PT) Coag time (PPP) 10.7 sNormal8.1-13.7[facility] Vital Signs Date TimeVital SignValuePerforming FfcihcebjHeexwxyi38-78-8900 09:26-0400Body mass index (BMI) [Ratio]33.98 kg/l0Xkxqv [employer] DO Work Phone: [facility] CenterZqebivkywa40-34-8451 09:26-0400Body xemdqz91.48 kgCorey Montez DO Work Phone: [facility] CenterYimxgubqsj37-76-3754 09:26-0400Diastolic blood dajrhtwj45 mm[Hg]Wilton [employer] Work Phone: [facility] CenterYylypbmtcw96-54-3965 09:26-0400Systolic blood bjakiqdk397 mm[Hg]Wilton [employer] Work Phone: [facility] CenterKjkqkmtjmd45-41-6022 13:44-0400Body ulllml259.6 cmApreet Callahan MD MPH Work Phone: [phone]10-20-2025 13:44-0400Body mass index (BMI) [Ratio]33.73 kg/w3ZwiacSam Callahan MD MPH Work Phone: [phone] [place], [place] [address]10-20-2025 13:44-0400Body zxgyxv05.8 kgSam Callahan MD MPH Work Phone: [facility]10-20-2025 13:44-0400Diastolic blood dugreqca46 mm[Hg]Sam Callahan MD MPH Work Phone: [facility]10-20-2025 13:44-0400Heart rate 79 /minSam Callahan MD MPH Work Phone: 1(567)585-[address] [place], [place] [address]10-20-2025 13:44-0400 Respiratory rate18 /minSam Callahan MD MPH Work Phone: [facility]10-20-2025 13:44-0400Systolic blood dqwhfusq318 mm[Hg]Sam Callahan MD MPH Work Phone: [facility]10-13-2025 10:45-0400Body mass index (BMI) [Ratio]34.12 kg/a7Xkjon Montez DO Work Phone: 1(521)311-[address] [place], [place] [address]Xxbgluiyjv16-94-8079 10:45-0400Body lclwcy18.89 kgCorey Montez DO Work Phone: 1(997)527-[address] [place] [address]-13-2025 10:45-0400Diastolic blood xqywgpse11 mm[Hg]Wilton Montez DO Work Phone: 1(253)637-[address] [place], [place] [address]Tzimwveamr60-04-8638 10:45-0400Systolic blood gsigwavf074 mm[Hg]Wilton Montez DO Work Phone: 1(930)148-[address] [place], [place] [address]Nylnwrvwwo13-57-0906 09:30-0400Body mass index (BMI) [Ratio]34.14 kg/r3Uakwb Montez DO Work Phone: [phone])762-[address] [place], [place] [address]Wcfoywdtpa07-61-5649 09:30-0400Body .94 kgCorey Montez DO Work Phone: 1(565)756-[address] [place], [place] [address]Ghohqurprp61-27-2215 09:30-0400Diastolic blood yjddwcsm30 mm[Hg]Wilton Montez DO Work Phone: 1(920)293-[address] [place], [place] [address]Ojrwvxmqfj31-71-4245 09:30-0400Systolic blood aesaxsnu115 mm[Hg]Wilton Montez DO Work Phone: [phone])801-[address] [place] [address]-08-2025 15:14-0400Body mass index (BMI) [Ratio]33.73 kg/b3Zdbrf Montez DO Work Phone: [place] [address]Iyapoagogg65-34-9368 15:14-0400Body .8 kg Wilotn Montez DO Work Phone: [facility] CenterXikyfhqprh49-47-0574 15:14-0400Diastolic blood oshlcdpy75 mm[Hg]Wilton Herrmann DO Work Phone: noMiss[facility] CenterDdikbfyamf77-37-8636 15:14-0400Systolic blood fcuoajwc436 mm[Hg]Wilton Herrmann DO Work Phone: noMiss[facility] Medical CenterJpjvzraqcc02-29-0538 14:22-0400Body mass index (BMI) [Ratio]33.89 kg/a5GmeyhvdcMukul Noyola MD Work Phone: [phone]09-04-2025 14:22-0400Body bdyhkv91.25 kgMukul Noyola MD Work Phone: [phone])[address] [place], [place] 9973309-04-2025 14:22-0400Diastolic blood jqeoknoz41 mm[Hg]Mukul Noyola MD Work Phone: 1(862)[address] [place], [place] 9973309-04-2025 14:22-0400Systolic blood ajwntfih997 mm[Hg]Mukul Noyola MD Work Phone: 1(995)[address] [place], [place] 9973308-26-2025 11:34-0400Body vfwifs255.7 cmKatherine Negrete APRN.[employer]TER UP Work Phone: [facility]08-26-2025 11:34-0400Body mass index (BMI) [Ratio]33.57 kg/q4IwjdcKatherine Negrete APRN.SETTER UP Work Phone: [facility]08-26-2025 11:34-0400Body temperature 97.59 [degF]Katherine Negrete TRAFFIC OPERATOR.SETTER [employer] Work Phone: [facility]08-26-2025 11:34-0400Body acwyjo08.4 kgKatherine Negrete APRN.SETTER UP Work Phone: [facility]08-26-2025 11:34-0400Diastolic blood mm[Hg]Katherine Negrete TRAFFIC OPERATOR.SETTER UP Work Phone: [facility]08-26-2025 11:34-0400Heart rate80 /min Katherine Negrete APRN.SETTER UP Work Phone: [facility]08-26-2025 11:34-0400Respiratory rate 16 /minKatherine Negrete APRN.SETTER UP Work Phone: [facility]08-26-2025 11:34-2288ZuJ5% (BldA) [Mass fraction]98 %Katherine Negrete APRN.SETTER UP Work Phone: [facility]08-26-2025 11:34-0400Systolic blood dpopjvie968 mm[Hg]Katherine Negrete TRAFFIC OPERATOR.SETTER UP Work Phone: [facility]08-14-2025 09:28-0400Body mass index (BMI) [Ratio]33.41 kg/l9Abgcq Montez DO Work Phone: [facility] CenterShwiagspuz90-70-6475 09:28-0400Body icidoq68.89 kgCorey Montez DO Work Phone: [place] [address]Qizymstvdr93-51-1819 09:28-0400Diastolic blood gjvjuxfr38 mm[Hg]Wilton Montez DO Work Phone: [place] [address]Lezavvzdtg47-92-2111 09:28-0400Systolic blood mm[Hg]Wilton Montez DO Work Phone: [facility] CenterQmchgghvft17-82-9775 10:53-0400Body mass index (BMI) [Ratio]33.57 kg/u4Jlhei Montez DO Work Phone: [facility] CenterBobtbfdaey91-06-5258 10:53-0400Body mhukya99.35 kgCorey Montez DO Work Phone: [facility] CenterFgqiaetrwa14-01-1869 10:53-0400Diastolic blood yhydxhwi64 mm[Hg]Wilton Montez DO Work Phone: [facility] CenterShohzuysea45-41-5098 10:53-0400Systolic blood zvyhqfix303 mm[Hg]Wilton Montez DO Work Phone: [place] [address]Clmosuurfh81-60-7253 13:07-0400Body mass index (BMI) [Ratio]33.73 kg/b5DaqcwgLorena Enciso RN Work Phone: 1(590)180-[address] [place], [place] 8165207-23-2025 13:07-0400Body leedxn51.8 kgLorena Enciso RN Work Phone: 1(708)124-[address] [place], [place] 8165207-03-2025 09:32-0400Body mass index (BMI) [Ratio]33.81 kg/y0Ukjkr Montez DO Work Phone: [facility] CenterKxmqzcfxze22-58-6541 09:32-0400Body uaqyci98.03 kgCorey Montez DO Work Phone: 1(258)412-[address] [place], [place] [address]Bstpbtbvka14-26-2940 09:32-0400Diastolic blood jucekmzc71 mm[Hg]Wilton Montez DO Work Phone: [facility] CenterJizhfuemoh59-92-5191 09:32-0400Systolic blood kicbkaou671 mm[Hg]Wilton Montez DO Work Phone: 1(150)758-[address] [place], [place] [address]Ygacpyfjdn87-51-0888 14:23-0400Body mass index (BMI) [Ratio]33.46 kg/m8NhgmtKatherine Negrete APRN.SETTER UP Work Phone: [facility]07-01-2025 14:23-0400Body temperature 97 [degF]Katherine Negrete APRN.SETTER UP Work Phone: [facility]07-01-2025 14:23-0400Body rflzsy55.1 kgKatherine Negrete APRN.SETTER UP Work Phone: [facility]07-01-2025 14:23-0400Diastolic blood hivupahb15 mm[Hg]Katherine Negrete APRN.SETTER UP Work Phone: [facility]07-01-2025 14:23-0400Heart rate82 /min Katherine Negrete APRN.SETTER UP Work Phone: [facility]07-01-2025 14:23-0400Respiratory rate 16 /minKatherine Negrete APRN.SETTER UP Work Phone: [facility]07-01-2025 14:23-8535XdV3% (BldA) [Mass fraction]100 %Katherine Negrete APRN.SETTER UP Work Phone: [facility]07-01-2025 14:23-0400Systolic blood avlcxyqq304 mm[Hg]Katherine Negrete APRN.SETTER UP Work Phone: [facility]06-05-2025 14:10-0400Body mass index (BMI) [Ratio]33.89 kg/m2[facility]06-05-2025 14:10-0400Body fneaas32.25 kgS[facility]06-05-2025 14:10-0400Diastolic blood ibdogsmn48 mm[Hg][facility]06-05-2025 14:10-0400Systolic blood mm[Hg][facility]03-27-2025 12:07-0400Body mass index (BMI) [Ratio]34.44 kg/i6Blqxc Montez DO Work Phone: [facility] CenterPazjmgovzq42-86-7721 12:07-0400Body casodt75.8 kg Wilton Montez DO Work Phone: [facility] CenterRznyqaadfp52-38-4472 12:07-0400Diastolic blood sbchyscr79 mm[Hg]Wilton Montez DO Work Phone: [facility] CenterGmsuhqfrya50-01-1689 12:07-0400Systolic blood mm[Hg]Wilton Omntez DO Work Phone: [facility] CenterTohzleyrsw65-22-0537 08:27-0500Blood Pressure LocationScott KAPLE [phone]-FarvjToledo Hospital03-03-2025 08:27-0500Diastolic blood mm[Hg]Penelope KAPLE [phone]-UthjrToledo Hospital03-03-2025 08:27-0500Heart rate77 /minScott KAPLE 925-3484Lbudso-FadefToledo Hospital03-03-2025 08:27-8867RnA5% (BldA) [Mass fraction]99 %Penelope CASAS [phone]-AlhvpToledo Hospital03-03-2025 08:27-0500Systolic blood eitzawvy302 mm[Hg]Penelope CASAS 075-4396Jkfdcn-AzwncToledo Hospital02-24-2025 15:21-0500Body mass index (BMI) [Ratio]34.93 kg/t3Sizdr Montez DO Work Phone: [facility] CenterIsqsrhivlm07-23-2427 15:21-0500Body ductbs51.16 kgCorey Montez DO Work Phone: [facility] CenterDffgtcckcu05-85-5662 15:21-0500Diastolic blood mm[Hg]Wilton Montez DO Work Phone: [facility] CenterKujfrzjdkl87-11-2005 15:21-0500Systolic blood miqyqykc051 mm[Hg]Wilton Montez DO Work Phone: [facility] CenterBesipgpogu40-23-5846 16:14-0500Blood Pressure LocationJESSICA BACA [phone]-ItybiUniversity [facility]als [facility] 06-19-2024 16:14-0500Diastolic blood jideioqt47 mm[Hg]JESSICA BACA 435-3555Gkmimy-DmelsUniversity Hospitals Parma [facility] Center 06-19-2024 16:14-0500Heart rate74 /minBARRONCLYN KEVEN 389-8608Jhfggw-NymaxUniversity Hospitals [facility] 06-19-2024 16:14-8129HcP1% (BldA) [Mass fraction]100 %JESSICA BACA 148-6591Nxlmqe-KgnmuUniversity Hospitals Parma [facility] Center 06-19-2024 16:14-0500Systolic blood kcybfwmu589 mm[Hg]JESSICA BACA 114-5809Rgekkh-VuslvK[facility] [place] 06-09-2024 13:55-0500Blood Pressure LocationScott KAPLE 883-1565Xklbyj-PajalToledo Hospital02-10-2025 13:55-0500Diastolic blood mm[Hg]Penelope KAPLE 440-9525Ylrlmk-McddsToledo Hospital02-10-2025 13:55-0500Heart rate78 /minScott KAPLE 219-6494Jvrcaq-XqwzeToledo Hospital02-10-2025 13:55-2957AcH2% (BldA) [Mass fraction]99 %Penelope KAPLE 576-2545Kabyba-UxxiwToledo Hospital02-10-2025 13:55-0500Systolic blood aucckiyp291 mm[Hg]Penelope STYLESLE 230-7179Ubeugp-RptkhToledo Hospital02-03-2025 11:43-0500Body mass index (BMI) [Ratio]34.51 kg/o0Msisg Montez DO Work Phone: [facility] CenterSyrgqhwbfy99-36-7016 11:43-0500Body qlahni55.98 kgCorey Montez DO Work Phone: [facility] CenterMvmtohctcj10-14-0366 11:43-0500Diastolic blood rmbxntei58 mm[Hg]Wilton Montez DO Work Phone: [facility] CenterYfmzgailtk32-53-4877 11:43-0500Systolic blood szkqxokk357 mm[Hg]Wilton Montez DO Work Phone: [facility] CenterZrjiciuhtg59-91-0273 13:07-0500Body omiszs528.7 cmVramos Calix MD Work Phone: [facility]01-29-2025 13:07-0500Body mass index (BMI) [Ratio]35.02 kg/z7OhnpdKristofer Calix MD Work Phone: [facility]01-29-2025 13:07-0500Body temperature 97.59 [degF]Kristofer Calix MD Work Phone: [facility]01-29-2025 13:07-0500Body dqmobg62.5 kgKristofer Calix MD Work Phone: [facility]01-29-2025 13:07-0500Diastolic blood oplqhdhb52 mm[Hg]Kristofer Calix MD Work Phone: [facility]01-29-2025 13:07-0500Heart rate72 /min Kristofer Calix MD Work Phone: [facility]01-29-2025 13:07-0500Respiratory rate 16 /minKristofer Calix MD Work Phone: [facility]01-29-2025 13:07-3572YoN4% (BldA) [Mass fraction]99 %Kristofer Calix MD Work Phone: [facility]01-29-2025 13:07-0500Systolic blood ogfwarui108 mm[Hg]Kristofer Claix MD Work Phone: [facility]01-07-2025 14:40-0500Body mass index (BMI) [Ratio]35.41 kg/x8Difgm Montez DO Work Phone: [facility] CenterRqqicqmiqo14-12-3226 14:40-0500Body ksctop86.52 kgCorey Montez DO Work Phone: [facility] CenterYntlmjphid45-66-6167 14:40-0500Diastolic blood simaends91 mm[Hg]Wilton Montez DO Work Phone: [facility] CenterEezepkivbj09-41-8036 14:40-0500Systolic blood dmiundox184 mm[Hg]Wilton Montez DO Work Phone: [facility] CenterYeloeqjnrk01-57-1574 10:57-0500Body mass index (BMI) [Ratio]35.85 kg/m2[facility]12-06-2024 10:57-0500Body bwpobv287.75 kgNoParkland Health Center10-08-2024 13:29-0400Blood Pressure LocationScott KAPLE [phone]-Geczz[address] [place], [place] 166[address]10-08-2024 13:29-0400Body gkiklmaepoe17.06 [degF]Penelope CASAS [phone]-Eigxl[address] [place], [place] 166[address]10-08-2024 13:29-0400Diastolic blood qdtbzwui06 mm[Hg]Penelope STYLESLE 140-3418Asihjs-Zfoet[address] [place], [place] 166[address]10-08-2024 13:29-0400Heart rate76 /minScott KAPBEN 074-4462Rchxwl-Mahht[address] [place], [place] 166[address]10-08-2024 13:29-0400Respiratory rate16 /minScott KAPBEN 133-7724Cmjpen-Iieoq[address] [place], [place] 166[address]10-08-2024 13:29-6718QdP2% (BldA) [Mass fraction]99 %Penelope CASAS 318-0317Gotdik-Zgigr[address] [place], [place] 166[address]10-08-2024 13:29-0400Systolic blood pkgxuevh819 mm[Hg]Penelope CASAS 505-5199Yunfbz-Dnivy[address] [place], [place] 1663510-05-2024 14:39-0400Blood Pressure LocationPreeti Gudimella 042-4415Zefgav-Slbvu[address] [place], [place] 6284610-05-2024 14:39-0400Body egpvuczbpge24.06 [degF]Anni Gudimella 234-4313Wgrqli-Gzqvn[address] [place], [place] 6284610-05-2024 14:39-0400Diastolic blood jspyozhh99 mm[Hg]Anni Gudimella 069-4173Kvvwgt-WhtflMagruder Memorial Hospital10-05-2024 14:39-0400Heart rate98 /minPreeti Gudimella 610-7498Ilweyo-Vyeoj[address] [place], [place] [address]10-05-2024 14:39-2121QyW7% (BldA) [Mass fraction]99 %Anni Gudimella 383-4414Dcnxnf-NfbpjKettering Memorial Hospital Convenient Fmmv57-55-0375 14:39-0400Systolic blood mlvdocjj202 mm[Hg]Anni Gudimella 548-6090Qammnk-RgntdKettering Memorial Hospital Convenient Pbmr02-72-4076 13:45-0400Body ilyfre462.7 cmVramos Calix MD Work Phone: [facility]09-04-2024 13:45-0400Body mass index (BMI) [Ratio]36.52 kg/w3ClzkyKristofer Calix MD Work Phone: [facility]09-04-2024 13:45-0400Body temperature 97.11 [degF]Kristofer Calix MD Work Phone: [facility]09-04-2024 13:45-0400Body .7 kgKristofer Calix MD Work Phone: [facility]09-04-2024 13:45-0400Diastolic blood pukzltnx07 mm[Hg]Kristofer Calix MD Work Phone: [facility]09-04-2024 13:45-0400Heart rate91 /min Kristofer Calix MD Work Phone: [facility]09-04-2024 13:45-0400Respiratory rate 16 /minKristofer Calix MD Work Phone: [facility]09-04-2024 13:45-3746YtP6% (BldA) [Mass fraction]100 %Kristofer Calix MD Work Phone: [facility]09-04-2024 13:45-0400Systolic blood rdbutelm751 mm[Hg]Kristofer Calix MD Work Phone: [facility]08-01-2024 13:40-0400Body temperature 97.7 [degF]Chair Piute Work Phone: [facility]08-01-2024 13:40-0400Diastolic blood xfjuvmic60 mm[Hg]Chair Piute Work Phone: [facility]08-01-2024 13:40-0400Heart rate75 /min Chair Piute Work Phone: [facility]08-01-2024 13:40-0400Respiratory rate 16 /minChair Piute Work Phone: [facility]08-01-2024 13:40-1081LcC7% (BldA) [Mass fraction]99 %Chair Stew Work Phone: [facility]08-01-2024 13:40-0400Systolic blood uguexgjm252 mm[Hg]Chair Piute Work Phone: [facility]07-25-2024 14:00-0400Body temperature 98.2 [degF]Chair Piute Work Phone: [facility]07-25-2024 14:00-0400Diastolic blood hzpsaggm63 mm[Hg]Chair Piute Work Phone: [facility]07-25-2024 14:00-0400Heart rate79 /min Chair Piute Work Phone: [facility]07-25-2024 14:00-0400Respiratory rate 16 /minChair Stew Work Phone: [facility]07-25-2024 14:00-3892ZcV1% (BldA) [Mass fraction]99 %Chair Piute Work Phone: [facility]07-25-2024 14:00-0400Systolic blood qnfajcfg738 mm[Hg]Chair Stew Work Phone: [facility]07-18-2024 14:08-0400Diastolic blood fblafxan99 mm[Hg]Chair Stew Work Phone: [facility]07-18-2024 14:08-0400Heart rate85 /min Chair Stew Work Phone: [facility]07-18-2024 14:08-0400Respiratory rate 18 /minChair Stew Work Phone: [facility]07-18-2024 14:08-9017DuV9% (BldA) [Mass fraction]96 %Chair Stew Work Phone: [facility]07-18-2024 14:08-0400Systolic blood mm[Hg]Chair Stew Work Phone: [facility]07-12-2024 14:44-0400Blood Pressure LocationMonica Saba [phone]-Etzce[address] [place], [place] 16[address]507-12-2024 14:44-0400Body gnyyvdannce42.34 [degF]Monica Saba [phone]-Emclj[address] [place], [place] 1663507-12-2024 14:44-0400Diastolic blood kfgrhfok42 mm[Hg]Monica Saba [phone]-Eldgv[address] [place], [place] 1663507-12-2024 14:44-0400Heart rate85 /Jennifer Saba [phone]-Kxpvw[address] [place], [place] 1663507-12-2024 14:44-0400Respiratory rate16 /Jennifer Saba [phone]-Ugade[address] [place], [place] 1663507-12-2024 14:44-4299PoT3% (BldA) [Mass fraction]99 %Monica Saba [phone]-Umlkh[address] [place], [place] 1663507-12-2024 14:44-0400Systolic blood khenlpea716 mm[Hg]Monica Saba [phone]-Giamq[address] [place], [place] 1663506-25-2024 16:48-0400Blood Pressure LocationLourdes Garber [phone]-Rtksc[address] [place], [place] 1663506-25-2024 16:48-0400Body slrwboudgce30.52 [degF]Lourdes Garber [phone]-Avtbw[address] [place], [place] 1663506-25-2024 16:48-0400Diastolic blood mihjysxu71 mm[Hg]Lourdes Garber [phone]-Demrp[address] [place], [place] 1663506-25-2024 16:48-0400Heart rate86 /minLourdes Garber [phone]-Tbdbj[address] [place], [place] 1663506-25-2024 16:48-9965AnW6% (BldA) [Mass fraction]99 %Lourdes Garber 108-0309Nhmnjn-Ojlzs[address] [place], [place] 1663506-25-2024 16:48-0400Systolic blood yqrquyuk957 mm[Hg]Lourdes Garber 366-0949Gqbtrj-Qunaw[address] [place], [place] 1663505-31-2024 21:17-0400Body wzcerbiiqlk49.06 [degF]Benny Uribe [address]05-31-2024 21:17-0400 Diastolic blood mm[Hg]Benny Uribe [address] [place], [place] 0305205-31-2024 21:17-0400Heart rate67 /minBenny Uribe [address] [place], [place] 0305205-31-2024 21:17-0400Mean blood dpogjsou90 mm[Hg]Benny Uribe [address] [place], [place] 0305205-31-2024 21:17-9294SmQ8% (BldA) [Mass fraction]95 %Benny Uribe [address] [place], [place] 0305205-31-2024 21:17-0400 Systolic blood eznunhia802 mm[Hg]Benny Uribe [address] [place], [place] 1951005-31-2024 20:00-0400 Diastolic blood qogoxgfh97 mm[Hg]Benny Uribe [address] [place], [place] 1951005-31-2024 20:00-0400Heart rate78 /minBenny Uribe [address] [place], [place] 1951005-31-2024 20:00-0400Mean blood gqiwbpvj99 mm[Hg]Benny Uribe [address] [place], [place] 1951005-31-2024 20:00-0400 Respiratory rate20 /minBenny Uribe [address] [place], [place] 1951005-31-2024 20:00-0400 Systolic blood yffpjsxy804 mm[Hg]Benny Uribe [address] [place], [place] 1951005-31-2024 19:30-0400 Diastolic blood hntakqel55 mm[Hg]Benny Uribe [address] [place], [place] 1951005-31-2024 19:30-0400Heart rate80 /minBenny Uribe [address] [place], [place] 1951005-31-2024 19:30-0400Mean blood mm[Hg]Benny Uribe [address] [place], [place] 1951005-31-2024 19:30-0400 Respiratory rate18 /minBenny Uribe [address] [place], [place] 1951005-31-2024 19:30-9581PiR1% (BldA) [Mass fraction]100 %Benny Uribe [address] [place], [place] 1951005-31-2024 19:30-0400 Systolic blood ruycqmar213 mm[Hg]Benny Uribe [address] [place], [place] 1951005-31-2024 19:00-0400 Respiratory rate17 /minBenny Uribe [address] [place], [place] 1951005-31-2024 18:32-0400Body nnalurgacmj22.42 [degF]Benny Uribe [facility]05-31-2024 18:32-0400Heart rate69 /minAntonderik Rony [facility]05-31-2024 17:46-0400 Diastolic blood kyedelpq13 mm[Hg]JANET DUNHAM 963-6566Jcdmpg-Hiwro[address] [place] [address] Convenient Zoot30-30-9170 17:46-0400Mean blood vonzscro743 mm[Hg][place]OCK [place] 386-4251Kjbcwl-Uuzae[address] [place] [address] Convenient Exrc84-90-9627 17:46-0400Systolic blood mm[Hg][facility] 034-2582Baexng-Akmuu[address] [place] [address] Convenient Ufhr76-69-8175 17:40-0400Blood Pressure LocationFRANCJONEL DUNHAM 674-1050Mmpzro-Hhhkg[address] [place] [address] Convenient Alap08-62-5391 17:40-0400Body viollxpyihl75.88 [degF][facility] 484-7073Unjxji-Wxhjg[address] [place] [address] Convenient Xpyf77-71-5932 17:40-0400Diastolic blood grefojhz48 mm[Hg][facility] 976-2250Bpypaw-Xgtxk[address] [place] [address] Convenient Qgze43-00-5414 17:40-0400Heart rate79 /minFRPRITESH DUNHAM 459-7086Vqhuwz-Xpymb[address] [place] [address] Convenient Jirq35-60-3748 17:40-4782RqF8% (BldA) [Mass fraction]97 %[place] 012-1373Twicjw-Eoewg[address] [place] [address] Convenient Xeny96-20-4362 17:40-0400Systolic blood aurlmtmk222 mm[Hg]JANET DUNHAM 472-3523Bevkqa-Rsmhx[address] [place] [address] Convenient Klvc42-68-5374 11:42-0400Blood Pressure LocationScott KAPLE 931-3599Qzeqlq-MpybpToledo Hospital04-05-2024 11:42-0400Body okfiflplyjr25.06 [degF]Penelope CASAS 403-3912Mlbwrt-OuummToledo Hospital04-05-2024 11:42-0400Diastolic blood mm[Hg]Penelope CASAS 543-6239Brlagw-OvpbaToledo Hospital04-05-2024 11:42-0400Heart rate72 /minScott KAPLE 628-8992Ewptik-SssyxToledo Hospital04-05-2024 11:42-0400Respiratory rate16 /minScott KAPLE 932-2111Iajgjr-DhgjxToledo Hospital04-05-2024 11:42-3174HxQ3% (BldA) [Mass fraction]99 %Penelope CASAS 211-5236Usdurl-FmgxnToledo Hospital04-05-2024 11:42-0400Systolic blood gxgujpmi731 mm[Hg]Penelope CASAS 645-0204Izhxra-VukngToledo Hospital02-16-2024 14:05-0500Body .7 Jerry Calix MD Work Phone: [facility]02-16-2024 14:05-0500Body temperature 97.39 [degF]Kristofer Calix MD Work Phone: [facility]02-16-2024 14:05-0500Body wpbwix296.1 kgKristofer Calix MD Work Phone: [place] [address]-16-2024 14:05-0500Diastolic blood oghnnwyu24 mm[Hg]Kristofer Calix MD Work Phone: [facility]02-16-2024 14:05-0500Heart rate87 /min Kristofer Calix MD Work Phone: [place] [address]-16-2024 14:05-0500Respiratory rate 16 /minKristofer Calix MD Work Phone: [facility]02-16-2024 14:05-7255LeH4% (BldA) [Mass fraction]95 %Kristofer Calix MD Work Phone: [facility]02-16-2024 14:05-0500Systolic blood rpwtehgo000 mm[Hg]Kristofer Calix MD Work Phone: [facility]01-26-2024 11:11-0500Blood Pressure LocationScott KAPLE [address] [place], [place] 6334401-26-2024 11:11-0500Body fjelskudvng71.7 [degF]Penelope KAPLE [address] [place], [place] 6334401-26-2024 11:11-0500Diastolic blood mm[Hg]Penelope KAPLE 802-9776Pulfcb-Ifqql[address]01-26-2024 11:11-0500Heart rate76 /minScott KAPLE 028-2623Dgfkkp-Zhfvg[address] [place], [place] 1663501-26-2024 11:11-0500Respiratory rate18 /minScott KAPLE [address] [place], [place] 6334401-26-2024 11:11-5109NwE4% (BldA) [Mass fraction]98 %Penelope KAPLE [address] [place], [place] 6334401-26-2024 11:11-0500Systolic blood mm[Hg]Penelope KAPLE 693-8507Mczfra-Qgzwn[address]10-19-2023 09:41-0400Blood Pressure LocationScott KAPLE 075-0230Melksh-Kmlho[address] [place], [place] 1663510-19-2023 09:41-0400Body mhwsluoafka87.42 [degF]Penelope KAPLE 332-4787Ctnswn-Wxlkf[address] [place], [place] 1663510-19-2023 09:41-0400Diastolic blood krruigaj80 mm[Hg]Penelope PRAVEEN 739-3320Jdmthy-Ieaor[address] [place], [place] 1663510-19-2023 09:41-0400Heart rate80 /minScott KAPLE 041-9897Tbesev-Bgcle[address] [place], [place] 1663510-19-2023 09:41-0400Respiratory rate18 /minScott KAPLE 086-3567Hnhyub-Goduy[address] [place], [place] 1663510-19-2023 09:41-0830SkL5% (BldA) [Mass fraction]98 %Penelope STEPHANIBEN 338-8649Rdmftv-Twgje[address]10-19-2023 09:41-0400Systolic blood olnywkan789 mm[Hg]Penelope PRAVEEN 342-8337Ttarat-Uhgtx[address]06-23-2023 09:44-0400Blood Pressure LocationScott STEPHANILE [address] [place], [place] 6334406-23-2023 09:44-0400Body hyejsyeflgv84.24 [degF]Penelope PRAVEEN [address] [place], [place] 6334406-23-2023 09:44-0400Diastolic blood gojlrkuw41 mm[Hg]Penelope CASAS 987-8006Ghwvny-Vgwcv[address]06-23-2023 09:44-0400Heart rate88 /minScott STEPHANILE 297-5484Buzaba-Lhmca[address] [place], [place] 1663506-23-2023 09:44-0400Respiratory rate18 /minScott KAPLE 297-5536Vijtyn-Exayd[address] [place], [place] 1663506-23-2023 09:44-0253ViB8% (BldA) [Mass fraction]98 %Penelope CASAS 604-4490Eivdqq-Drujv[address] [place], [place] 1663506-23-2023 09:44-0400Systolic blood ykcvdhbk071 mm[Hg]Penelope CASAS 502-0774Inhuoz-MauylToledo Hospital03-30-2023 13:18-0400Body eesswr406.7 cmVramos Calix MD Work Phone: [facility]03-30-2023 13:18-0400Body temperature 97.5 [degF]Kristofer Calix MD Work Phone: [facility]03-30-2023 13:18-0400Body qnacrf700.78 kgKristofer Calix MD Work Phone: [facility]03-30-2023 13:18-0400Diastolic blood motrbrph95 mm[Hg]Kristofer Calix MD Work Phone: [facility]03-30-2023 13:18-0400Heart rate76 /min Kristoefr Calix MD Work Phone: [facility]03-30-2023 13:18-0400Respiratory rate 16 /minKristofer Calix MD Work Phone: [facility]03-30-2023 13:18-1024AqL1% (BldA) [Mass fraction]97 %Kristofer Calix MD Work Phone: [facility]03-30-2023 13:18-0400Systolic blood jvyssumk087 mm[Hg]Kristofer Calix MD Work Phone: [facility]12-22-2022 13:45-0500Body temperature 98.71 [degF]Chair Stew Work Phone: [facility]12-22-2022 13:45-0500Diastolic blood slxotyai80 mm[Hg]Chair Stew Work Phone: [facility]12-22-2022 13:45-0500Heart rate85 /min Chair Stew Work Phone: [place] [address]-22-2022 13:45-5843NbY6% (BldA) [Mass fraction]97 %Chair Stew Work Phone: [facility]12-22-2022 13:45-0500Systolic blood yiskfgpx893 mm[Hg]Chair Piute Work Phone: [facility]12-07-2022 16:27-0500Diastolic blood ervvprdb30 mm[Hg]Chair Piute Work Phone: [phone] [address]-07-2022 16:27-0500Heart rate84 /min Chair Stew Work Phone: [place] [address]-07-2022 16:27-0500Respiratory rate 18 /minChair Stew Work Phone: [place] [address]-07-2022 16:27-5207XnI7% (BldA) [Mass fraction]96 %Chair Stew Work Phone: [facility]12-07-2022 16:27-0500Systolic blood nztnakxq572 mm[Hg]Chair Stew Work Phone: [facility]11-28-2022 14:20-0500Body eugarx828.7 cmVramos Calix MD Work Phone: [facility]11-28-2022 14:20-0500Body temperature 97.39 [degF]Kristofer Calix MD Work Phone: [place] [address]-28-2022 14:20-0500Body sylvnp027.23 kgKristofer Calix MD Work Phone: [place] [address]-28-2022 14:20-0500Diastolic blood hlimqzvp38 mm[Hg]Kristofer Calix MD Work Phone: [place] [address]-28-2022 14:20-0500Heart rlbv623 /minKristofer Calix MD Work Phone: [place] [address]-28-2022 14:20-0500Respiratory rate 16 /minKristofer Calix MD Work Phone: [facility]11-28-2022 14:20-7014BeD4% (BldA) [Mass fraction]97 %Kristofer Calix MD Work Phone: [facility]11-28-2022 14:20-0500Systolic blood kyhkteyt371 mm[Hg]Kristofer Calix MD Work Phone: [facility]10-03-2022 11:46-0400Body dbygzn082.7 cmVramos Calix MD Work Phone: [facility]10-03-2022 11:46-0400Body temperature 97.2 [degF]Kristofer Calix MD Work Phone: [facility]10-03-2022 11:46-0400Body .42 kgKristofer Calix MD Work Phone: [facility]10-03-2022 11:46-0400Diastolic blood uzwlxcce13 mm[Hg]Kristofer Calix MD Work Phone: [facility]10-03-2022 11:46-0400Heart rate88 /min Kristofer Calix MD Work Phone: [facility]10-03-2022 11:46-0400Respiratory rate 16 /minKristofer Calix MD Work Phone: [facility]10-03-2022 11:46-2166OmJ3% (BldA) [Mass fraction]99 %Kristofer Calix MD Work Phone: [facility]10-03-2022 11:46-0400Systolic blood zvrmipes017 mm[Hg]Kristofer Calix MD Work Phone: [facility]04-22-2022 10:46-0400Blood Pressure [facility] 733-1621Vkmniq-AnqttUniversity Hospitals Par[facility] 04-22-2022 10:46-0400Diastolic blood nrhypcvj54 mm[Hg] PERNELL SIDELL 989-9073Ebxzjo-LedsvUniversity Hospitals Parma Medical Center 04-22-2022 10:46-0400Heart rate96 /minDERIK SIDELL 165-8664Zraffz-FehpgUniversity Hospitals Parma [facility] 04-22-2022 10:46-1347ZwN0% (BldA) [Mass fraction]99 % PERNELL SIDELL 552-0772Tobnmu-MyyleUniversity Hospitals Parma Medical Center 04-22-2022 10:46-0400Systolic blood wvkwinqa486 mm[Hg] PERNELL SIDELL 604-2954Naxkjv-XvdadUniversity Hospitals Parma Medical Center Encounters Encounter DateEncounter TypeCare ProviderFacilityStart: 03-11-2025 End: 72-26-7446whshvyqnbkYCJORYThe MetroHealth Systemtart: 03-11-2025 End: 78-01-9959Lfwypk outpatient visit 25 minutesSana Palma MD Work Phone: [phone]-Prmks Medicine at [facility] Comment on above:Gestational diabetes mellitus (GDM) in second trimester controlled on oral hypoglycemic drug (Primary Dx); Antiphospholipid syndromeStart: 03-10-2025 End: 79-13-4933Lsuvsr flowsheetCorey Montez DO Work Phone: [facility] OBGYNStart: 03-10-2025 End: 48-98-0501Ujilwg flowsheetCorey Montez DO Work Phone: NOBJ [place] OBGYNStart: 03-10-2025 End: 43-16-1921ouahixcavoOGZHX FAZIONot AvailableStart: 03-06-2025 End: 08-15-5256Brenspkot Result EncounterCorey Montez DO Work Phone: noms External Department UnsolicitedStart: 03-06-2025 End: 52-07-2258Ttwybvnob Result EncounterCorey Montez DO Work Phone: noms External Department UnsolicitedStart: 03-02-2025 End: 90-55-5169bmjklizcygBNCEY MARTINEZFacility:[facility] Hospitaltart: 02-27-2025 End: 24-74-6927Fghtnriyf Result EncounterCorey Montez DO Work Phone: noms External Department UnsolicitedStart: 02-27-2025 End: 68-97-6343Hjsrddciu Result EncounterCorey Montez DO Work Phone: noms External Department UnsolicitedStart: 02-23-2025 End: 33-09-6741Iuorqr flowsheetCorey Montez DO Work Phone: NOZM [place] OBGYNStart: 02-23-2025 End: 83-96-3992Cgmdvw flowsheetCorey Montez DO Work Phone: noms [facility] OBGYNStart: 02-23-2025 End: 86-02-4360xeslujxkmbLGCIO FAZIONot AvailableStart: 02-23-2025 End: 60-68-2455Dlslew outpatient visit 15 minutesCorey Montez DO Work Phone: noms [place] OBGYNComment on above:Third trimester ([facility]); 30 weeks gestation of ([facility])Start: 02-20-2025 End: 91-94-6057Fgvrpvcbr Result EncounterCorey Montez DO Work Phone: noms External Department UnsolicitedStart: 02-20-2025 End: 20-67-7107Ctfabszns Result EncounterCorey Montez DO Work Phone: noms External Department UnsolicitedStart: 02-17-2025 End: 09-86-8757Kfovfbshi Result EncounterCorey Montez DO Work Phone: noms External Department UnsolicitedStart: 02-17-2025 End: 13-97-0819Ymbolwihw Result EncounterCorey Montez DO Work Phone: noms External Department UnsolicitedStart: 02-16-2025 End: 90-64-8214Cchvia consultation new/estab patient 80 Héctor Callahan MD MPH Work Phone: [facility] HospitalComment on above:Antiphospholipid syndrome (Primary Dx); Antiphospholipid syndrome complicating , antepartum; History of CVA (cerebrovascular accident); Coordination of complex care; 29 weeks gestation of pregnancyStart: 02-16-2025 End: 98-01-2739nepvytwfsvBOCCB REDDY AMBATIPremier Health [facility] Hospital Southtart: 02-10-2025 End: 63-89-1388Igntgevfr encounterAnnita WELLS Work Phone: [phone]-Pahwj Medicine at [facility] Start: 02-09-2025 End: 25-32-5739tbamrymrheEWLWQ FAZIONot AvailableStart: 02-09-2025 End: 06-39-5951Gagxpa outpatient visit 15 minutesCorey Montez DO Work Phone: noms [place] OBGYNComment on above:Third trimester ([facility]); 28 weeks gestation of ([facility]); Anemia complicating childbirth ([facility]); Anticoagulant long-term use; Antiphospholipid antibody positive; Blood pressure elevated without history of HTN; Coagulation defect, unspecified ([facility])Start: 02-06-2025 End: 19-87-6771jbepfywwyqSALAHFXH P DOCHEVAMercy Health St. [facility] HospitalStart: 02-06-2025 End: 72-45-6717Ugwsol outpatient visit 25 minutesMukul Noyola MD Work Phone: [phone]-Uxssu Medicine at [facility] Comment on above:27 weeks gestation of (Primary Dx); Multigravida of advanced maternal age in third trimester; Gestational diabetes mellitus (GDM) in second trimester controlled on oral hypoglycemic drug; Antiphospholipid syndrome complicating , antepartum; Antiphospholipid syndromeStart: 02-05-2025 End: 55-52-9735iamztltpulAKNYZ [facility] Ambulatory PPGStart: 02-03-2025 End: 68-53-3743odajpnwkvbAohsy R FAOFacility:FTMCStart: 01-19-2025 End: 94-40-7484rqwzhkvpajATQVL FAONot AvailableStart: 01-19-2025 End: 65-65-9164Fxqvqi outpatient visit 15 minutesCorey Montez DO Work Phone: NOOK [facility]ush OBGYNComment on above:Second trimester ([facility]); 25 weeks gestation of ([facility]); Gestational diabetes mellitus (GDM), antepartum, gestational diabetes method of control unspecified([facility]); Anticoagulant long-term use; Antiphospholipid antibody positive; Antiphospholipid antibody syndrome ([facility])Start: 53-42-6170rjnapewhteSpvku R FAZIOFacility:FTMCStart: 01-13-2025 End: 29-61-7077Tucqdd outpatient visit 25 minutesColleen Maxim Mays PA-C Work Phone: [phone]-Tmaco Medicine at [facility] Comment on above:Gestational diabetes mellitus (GDM) in second trimester controlled on oral hypoglycemic drug (Primary Dx); Antiphospholipid syndrome; Other specified hypothyroidism; Antiphospholipid syndrome complicating , antepartumStart: 01-13-2025 End: 74-40-9204axwlwrtyrpZVCOSKX E [facility] Centertart: 01-09-2025 End: 65-06-8532Vlymanaqt Batsheva Noyola MD Work Phone: [phone]-Mjkbn Medicine at [facility] Comment on above:Antiphospholipid syndrome (Primary Dx)Start: 01-07-2025 End: 29-87-5353Jtaemguqu encounterJacque Pat Maternal- Medicine at [facility] Southtart: 01-05-2025 End: 88-60-9163neoicutrriAPQLA FAONot AvailableStart: 01-05-2025 End: 07-10-4469Qcipms outpatient visit 15 minutesCorey [employer] Work Phone: NOMS [place] OBGYNComment on above:Second trimester ([facility]); 23 weeks gestation of ([facility]); Thyroid disease ; Gestational diabetes mellitus (GDM), antepartum, gestational diabetes method of control unspecified([facility]); Multigravida of advanced maternal age in second trimester ([facility]); H/O loss; Lightheaded; DizzinessStart: 01-05-2025 End: 49-09-7809Kmrfma flowsheetSpotsiy [employer] Work Phone: NOCA [facility] OBGYNStart: 01-05-2025 End: 15-07-5885Kzcmwt flowsheetCore Montez DO Work Phone: NOGA [facility] OBGYNStart: 01-05-2025 End: 34-67-9354Mchgjiflnxljn procedureWorcester County Hospital RNMaternal- Medicine at [facility] HospitalComment on above:Multigravida of advanced maternal age [...] Family history of autism; HyponatremiaStart: 01-01-2025 End: 74-46-9827Xfjptw consultation new/estab patient 80 Margaux Noyola MD Work Phone: [facility] [place] [facility] on above: 22 weeks gestation of (Primary Dx); Antiphospholipid syndrome complicating , antepartum; History of stroke; History of loss in prior , currently in second trimester; Gestational diabetes mellitus (GDM) in second trimester controlled on oral hypoglycemic drug; Multigravida of advanced maternal age in second trimester; Hypothyroidism affecting in second trimester; Family history of autism; HyponatremiaStart: 01-01-2025 End: 85-66-0302Twukri [facility] Warren RNMaternal Medicine [place] Comment on above:Multigravida of advanced maternal age in second trimester (Primary Dx); Antiphospholipid syndrome complicating , antepartum; Gestational diabetes mellitus (GDM) in second trimester controlled on oral hypoglycemic drug; Insulin controlled gestational diabetes mellitus (GDM) in second trimester; AMA (advanced maternal age) multigravida 35+, second trimester; Hypothyroidism, unspecified typeStart: 12-26-2024 End: 29-83-8339Exjaox Ty Noyola MD Work Phone: p[facility] - LaborComment on above: Gestational diabetes mellitus (GDM) in second trimester controlled on oral hypoglycemic drug (Primary Dx)Start: 12-23-2024 End: 45-73-0953Xwftbcq encounter procedureKatherine Negrete APRN.CNP Work Phone: Hematology/OncologyStart: 12-23-2024 End: 36-91-9968wqsacsyyryVhqhwJuju Negrete APRN.CNP Work Phone: Hematology/OncologyComment on above:Antiphospholipid antibody positive (Primary Dx); Iron deficiency anemia secondary to blood loss (chronic); Vitamin D deficiency; Primary hypercoagulable state (HCC)Start: 12-17-2024 End: 98-30-4409vtmzdxuvptIEXLGSUU BROGANMercy Health St. [facility] HospitalStart: 12-17-2024 End: 99-31-5343Qgzbzw outpatient visit 25 minutesAlisa HUTTON Work Phone: [phone]-Rcnrc Medicine at [facility] Comment on above:Gestational diabetes mellitus (GDM) in second trimester controlled on oral hypoglycemic drug (Primary Dx)Start: 12-17-2024 End: 11-97-8750aiznyzylreLBENITEI BROGenesis Hospital HospitalStart: 12-16-2024 End: 61-92-2049Fzrjpyyax Result EncounterCorey Montez DO Work Phone: noms External Department UnsolicitedStart: 12-16-2024 End: 12-80-2728Russydtin Result EncounterCorey Montez DO Work Phone: noms External Department UnsolicitedStart: 12-12-2024 End: 74-85-0190Qfbzutsnq encounterDenikijacinta Kendall LD Work Phone: [phone]-Svfnw Medicine at [facility] Start: 12-11-2024 End: 41-19-3948Apindj flowsheetCorey Montez DO Work Phone: noms [place] OBGYNStart: 12-11-2024 End: 40-95-0855Gosctt flowsheetCorey Montez DO Work Phone: noms [facility] OBGYNStart: 12-11-2024 End: 97-55-0838Jpvpvpwlz Result EncounterCorey Montez DO Work Phone: noms External Department UnsolicitedStart: 12-11-2024 End: 17-84-3350lsqpgmytmqWUFUH FAZIONot AvailableStart: 12-11-2024 End: 74-08-7133Tscdbo outpatient visit 15 minutesCorey Montez DO Work Phone: noms [facility] OBGYNComment on above:19 weeks gestation of ([facility]); Second trimester ([facility]); Thyroid disease ; Multigravida of advanced maternal age in second trimester ([facility]); Gestational diabetes mellitus (GDM), antepartum, gestational diabetes method of control unspecified([facility])Start: 12-03-2024 End: 30-66-6593ducgzvemtgQFYNFAOP BROGANProMedica Kettering Health Greene Memorialtart: 12-03-2024 End: 96-18-7437Szhiej outpatient visit 25 minutesAlisa Saba TRAFFIC OPERATOR-SETTER UP Work Phone: [phone]-Ogawq Medicine at [facility] Comment on above:Insulin controlled gestational diabetes mellitus (GDM) in second trimester (Primary Dx)Start: 12-03-2024 End: 28-71-8146Kvahhbtsa encounterAnni Abreu CMAMaternal- Medicine at [facility] Southtart: 11-20-2024 End: 35-81-7194Zscvbp flowsheetCorey Montez DO Work Phone: NOMS BCP OBStart: 11-20-2024 End: 59-14-0514Fqrdnc flowsheetCorey Montez DO Work Phone: NOM[facility] BCP OBStart: 11-20-2024 End: 20-55-9649aogpcyxqmvBCKBR FAZIONot AvailableStart: 11-20-2024 End: 07-13-8678Npzasq outpatient visit 15 minutesCorey Montez DO Work Phone: NOMS P[facility]ush OBGYNComment on above:Second trimester ([facility]); 16 weeks gestation of ([facility]); Screening, , for anatomic survey ([facility]); Vaginal discharge; Sinus headacheStart: 11-19-2024 End: 87-23-8916kfvigyuvpuPwybvk M Frey RN Work Phone: [phone]-Wrlva Medicine at [facility] Comment on above:Gestational diabetes mellitus (GDM), antepartum, gestational diabetes method of control unspecified(Primary Dx)Start: 11-04-2024 End: 97-70-2052Qlqch Syd Noyola MD Work Phone: [phone]-Fvgxm Medicine at [facility] Start: 10-30-2024 End: 50-57-3715Qpjtun flowsheetCorey Montez DO Work Phone: NOM[facility] BCP OBStart: 10-30-2024 End: 21-80-8796Uxadho flowsheetCorey Montez DO Work Phone: [facility] OBStart: 10-30-2024 End: 29-80-9220Wnsxtx outpatient visit 15 minutesCorey Montez DO Work Phone: [facility] B[facility] OBComment on above:Second trimester (HHS-HCC); 13 weeks gestation of (HHS-HCC); Thyroid disease ; Multigravida of advanced maternal age in second trimester (HHS-HCC); Gestational diabetes mellitus (GDM), antepartum, gestational diabetes method of control unspecified(HHS-HCC); Elevated glucose tolerance testStart: 10-30-2024 End: 44-21-9623qfhhksxmetSTGYJ FAZIONot AvailableStart: 10-29-2024 End: 03-73-2079UbbulqDmcdfxBunny Paz APRN.CNP Work Phone: Hematology/OncologyComment on above:Refill Request Start: 10-28-2024 End: 59-42-4850Ufklxtg encounter Valentine Negrete APRN.CNP Work Phone: Hematology/OncologyStart: 10-28-2024 End: 61-27-9822wdbzegdbfnDshfdJuju Negrete APRN.CNP Work Phone: Hematology/OncologyComment on above:Primary hypercoagulable state (HCC) (Primary Dx); CVA, old, speech/language deficit; Cerebral hyponatremia; Personal history of TIA (transient ischemic attack)Start: 10-28-2024 End: 02-88-0153Uchpxitac Gregoria Negrete APRN.CNP Work Phone: Cancer Appts MCComment on above:ResultsStart: 10-24-2024 End: 67-71-8229Vmaedjayt Gregoria Negrete APRN.CNP Work Phone: Hematology/OncologyComment on above:Lab OrdersStart: 10-20-2024 End: 75-26-9889HmsfvxNkfcy Abhyankar MD Work Phone: Hematology/OncologyComment on above:Refill Request Start: 10-13-2024 End: 78-42-1463JpavlvDell Khan RNMaternal- Medicine at [facility] HospitalComment on above:Gestational diabetes mellitus (GDM), antepartum, gestational diabetes method of control unspecified(Primary Dx)Start: 10-06-2024 End: 52-03-5864Vgoafavhp Result EncounterCorey Montez DO Work Phone: noms External Department UnsolicitedStart: 10-06-2024 End: 78-72-2318Tcmcqttej Result EncounterCorey Montez DO Work Phone: noms External Department UnsolicitedStart: 10-02-2024 End: 57-93-2674axnbfgmvejPCVYA FAZIONot AvailableStart: 10-02-2024 End: 04-32-1271Dhzorg outpatient visit 5 minutesNoms Bcp Ob Montez NurseNOMS BCP OBComment on above:GA: 0q5pSjqin: 09-11-2024 End: 57-28-3370Ncarwdwgq Result EncounterCorey Montez DO Work Phone: noms External Department UnsolicitedStart: 09-11-2024 End: 24-93-4914Olxbiumkl Result EncounterCorey Montez DO Work Phone: noms External Department UnsolicitedStart: 09-09-2024 End: 16-16-3688pztewojcddMfxzy A KAPLEFacility:Val PCStart: 09-09-2024 End: 19-65-4688Krzbbac encounter procedureScomike CASAS [phone]-UxlslKettering [facility] Start: 09-07-2024 End: 90-03-7880hxrypwkbmuStifa M. DempseyFacility:GIL NorwalkStart: 09-02-2024 End: 25-02-3026Olreeosgd encounterNatmurphy Johnson RNHematology/OncologyComment on above:Patient UpdateStart: 08-26-2024 End: 48-11-9531Oxsauulpe encounterKristofer Calix MD Work Phone: Hematology/OncologyComment on above:Lab OrdersStart: 08-23-2024 End: 19-87-1582zbfltugoevUnwpu R FAZIOFacility:FTMCStart: 08-23-2024 End: 05-46-2246Fdehizg encounter procedureCorecarmen Palmer [facility]Z [facility] Start: 07-25-2024 End: 65-33-5969VgyhmxPmmyd Abhyankar MD Work Phone: Hematology/OncologyComment on above:Refill Request Start: 07-24-2024 End: 35-66-8346Ygdvov flowsheetCorey Montez DO Work Phone: noms BCP OBStart: 07-24-2024 End: 68-68-2596Nzfpdg flowsheetCorey Montez DO Work Phone: noms BCP OBStart: 07-24-2024 End: 97-41-7442yspyikopkaRFSOZ FAZIONot AvailableStart: 07-24-2024 End: 44-92-3429Jzwvwk outpatient visit 15 minutesCorey Montez DO Work Phone: noms BCP OBComment on above:Irregular menstrual cycle Start: 07-09-2024 End: 62-87-5601ptgruavtziMeaspku A VisciFacility:FTMCStart: 07-09-2024 End: 98-70-6668Sqeignt encounter procedureInez [facility] Start: 07-08-2024 End: 91-11-1877Cuq-admission assessmentInez [facility] Start: 07-07-2024 End: 29-47-4475luyffbaysfBpzzg A KAPLEFacilсветлана:Val PCStart: 06-30-2024 End: 34-36-5262riuherrecmEeokl A KAPLEFacility:Val PCStart: 06-30-2024 End: 98-94-6057Uhyuovf encounter procedureScomike CASAS [phone]-JjgtdKettering Memorial Hospital [facility] Start: 06-23-2024 End: 22-25-0732Reiopc outpatient visit 15 minutesCorey Montez DO Work Phone: noms [facility] OBComment on above:Vaginal bleeding; Dizziness; Abnormal TSH; Vaginal discharge; Pelvic pain in femaleStart: 06-23-2024 End: 30-22-5692kqdgxkhhkoOZMJF FAZIONot AvailableStart: 06-23-2024 End: 56-11-3904Fnmwhlrd Result EncounterCorey Montez DO Work Phone: noms External Department UnsolicitedStart: 06-23-2024 End: 33-69-1524Knbwubyf Result EncounterCorey Montez DO Work Phone: noms External Department UnsolicitedStart: 06-19-2024 End: 12-68-2892qlxofgbgquOAHMYW R CIERSEZWSKIFacility: MilanStart: 06-19-2024 End: 62-73-0348Pszpkjn encounter procedureJACLYN Jeanine BACA [phone]-OfjoqUniversity [facility]als [facility] Start: 06-12-2024 End: 30-30-1742pzghqqirhjZdlfp R SHYLAZIOFacility:FTMCStart: 06-12-2024 End: 72-87-7968Flwvpnd encounter procedureCorey R MONTEZ [facility] Start: 06-09-2024 End: 82-55-6023qosycxtfxyMusym A KAPLEFacility:Val PCStart: 06-09-2024 End: 19-74-5005Vwzuyvg encounter procedureCorey R MONTEZ [facility] Start: 06-06-2024 End: 64-17-3179ofpdzrdzmeMZYTLV A LEHMANNFacility:FT BellevueStart: 06-02-2024 End: 63-42-7003ekathyhpyeAQCBC FAZIONot AvailableStart: 06-02-2024 End: 98-53-8539Drhlxc outpatient visit 15 minutesCorey Montez DO Work Phone: noms BCP OBComment on above:Follow-up visit after miscarriage; Abnormal TSH; History of thyroid diseaseStart: 05-28-2024 End: 30-59-7139Fpzcgfbxl encounterKristofer Calix MD Work Phone: Cancer Appts MCStart: 05-28-2024 End: 49-09-9023Cbrvdi outpatient visit 25 minutesKristofer Calix MD Work Phone: Hematology/OncologyComment on above:Primary hypercoagulable state (HCC) (Primary Dx); CVA, old, speech/language deficit; Iron deficiency anemia secondary to blood loss (chronic); Vitamin D deficiency; Antiphospholipid antibody syndrome (HCC)Start: 05-28-2024 End: 26-05-4701pewftypslaORTYU ABHYANKARFacility:[facility] Hospitaltart: 80-39-1553fntooouyenWjvfd A KAPFacility:[place] PCStart: 05-14-2024 End: 93-63-7861Flowldyto encounterNatmurphy Johnson RNHematology/OncologyComment on above:Patient UpdateStart: 05-10-2024 End: 80-38-3497Gfbawqoyc Result EncounterCorey Montez DO Work Phone: noms External Department UnsolicitedStart: 05-10-2024 End: 14-22-8887Haogvlfwq Result EncounterCorey Montez DO Work Phone: noms External Department UnsolicitedStart: 05-10-2024 End: 25-58-2789tyivqdfpsiLujde FazioFiKind[facility] Work Phone: Start: 05-10-2024 End: 63-02-3268Kcczxgyw ReferredCorey Montez DO Work Phone: [facility]-LAB Path Spec [facility]ory HospStart: 05-06-2024 End: 57-89-0773kjowpaysiwCPTWT FAZIONot AvailableStart: 05-06-2024 End: 43-25-5220Bekxpe flowsheetCorey Montez DO Work Phone: noms BCP OBStart: 05-06-2024 End: 57-01-2861Wobzbr flowsheetCorey Montez DO Work Phone: NOME BCP OBStart: 05-06-2024 End: 74-24-3977pghdhuexavZHAGH FAZIONot AvailableStart: 05-06-2024 End: 21-80-1224Pgegbt outpatient visit 15 minutesCorey Montez DO Work Phone: noms BCP OBComment on above:14 weeks gestation of ; Second trimester ; Confirm viability with history of miscarriage, ultrasoundStart: 04-28-2024 End: 07-75-8889JblszjFhoys Abhyankar MD Work Phone: Hematology/OncologyComment on above:Refill Request Start: 04-12-2024 End: 35-50-5189Ghwxjbwce Result EncounterCorey Montez DO Work Phone: noms External Department UnsolicitedStart: 04-12-2024 End: 40-44-7573Vihsjvdgm Result EncounterCorey Montez DO Work Phone: noms External Department UnsolicitedStart: 04-05-2024 End: 16-66-8143Mxuucvnvk Result EncounterCorey Montez DO Work Phone: noms External Department UnsolicitedStart: 04-05-2024 End: 73-41-8836Yfgofjarv Result EncounterCorey Montez DO Work Phone: noms External Department UnsolicitedStart: 04-04-2024 End: 84-79-3429npnxjrsmdqRJQYC FAZIONot AvailableStart: 04-04-2024 End: 66-63-5567Jlmzxz outpatient visit 5 minutesNoms Bcp Ob Montez NurseNOMS BCP OBComment on above:GA: 0t4iRdyac: 03-01-2024 End: 72-07-1646dambxgniiuYtgku R FAZIOFacility:FTMCStart: 03-01-2024 End: 92-79-1667Ggzzjve encounter procedureCorey R [facility]Z [facility] Start: 02-27-2024 End: 47-42-4890pnwarkjvteAepwy R FAZIOFacility:FTMCStart: 02-27-2024 End: 12-78-1472Zrktitijj encounterNatmurphy Johnson RNHematology/OncologyComment on above:Patient QuestionStart: 02-25-2024 End: 61-30-1185elfxdyobpnMbqif R FAZIOFacility:FTMCStart: 02-25-2024 End: 14-29-4652Lzrjcuo encounter procedureCorey R MONTEZ [facility] Start: 02-23-2024 End: 79-48-5080mihsvizgoqYriym A KAPLEFacility:FTMCStart: 02-23-2024 End: 59-84-5191Kszqphy encounter procedureCorey R [facility]TEZ [facility] Start: 02-05-2024 End: 32-45-4953heovabxpytWsvhy A STEPHANILEFacility:Val PCStart: 02-05-2024 End: 20-71-0578Aolzmrn encounter procedureScott A KAPLE [phone]-AvqqmK[facility] Start: 02-05-2024 End: 72-87-1362Xdmw adult monitoring check doneScott A STEPHANILE [phone]-KfmavKettering [facility] Hospital [facility] Start: 02-02-2024 End: 42-06-3164rixxddgkipGcfzge GudimellaFacility:GIL TaylorkStart: 02-02-2024 End: 41-43-1301Auyyror encounter procedurePreeti Merlincatiesherry [phone]-ZtwihK[facility] Start: 76-41-5724htdfocsfzlBezos A STEPHANI Facility:[place] PCStart: 01-24-2024 End: 63-21-8532WjbrnrKhyse Abhyankar MD Work Phone: Hematology/OncologyComment on above:Refill Request Start: 01-02-2024 End: 35-18-8230Afdxytrqp encounterKristofer Calix MD Work Phone: Cancer Appts MCComment on above:ResultsStart: 01-02-2024 End: 23-09-7390Lcwxep outpatient visit 15 minutesKristofer Calix MD Work Phone: Hematology/OncologyComment on above:Iron deficiency anemia secondary to blood loss (chronic) (Primary Dx); Vitamin D deficiency; Malaise and fatigueStart: 12-17-2023 End: 75-10-5815Phmssletb encounterNatalimaxim Johnson RNHematology/OncologyStart: 12-06-2023 End: 53-69-3078fzkjztycubTqhcqaoil L ClarkFacility:FTMCStart: 12-06-2023 End: 23-47-2889Mrpdqdv encounter procedureMonica Saba [facility] Start: 32-65-5470ictqyspwxfAekcb A STEPHANI Facility:[place] PCStart: 11-29-2023 End: 59-35-5092imweenipfpMogvn Abhyankar MD Work Phone: Hematology/OncologyComment on above:Iron infusion side effects?Refill RequestIron deficiency anemia of (Primary Dx); Iron deficiency anemia secondary to blood loss (chronic)Start: 11-22-2023 End: 69-50-3590becttomypdTmuqf Angelito Claudio Work Phone: Hematology/OncologyComment on above:Iron deficiency anemia of (Primary Dx); Iron deficiency anemia secondary to blood loss (chronic)Start: 11-15-2023 Telephone encounterFinancial Navigator Delgado Work Phone: Hematology/OncologyStart: 11-15-2023 End: 34-43-0177cnpasboaezJwmos Angelito Stew Work Phone: Hematology/OncologyComment on above:Iron deficiency anemia of (Primary Dx); Iron deficiency anemia secondary to blood loss (chronic)Start: 11-09-2023 End: 92-35-6095Qvgraid encounter procedureElirachna Saba [phone]-LaviwKet[facility] Hospital [facility] Start: 11-09-2023 End: 95-15-5043Zvchbs WorkLori Penelope FLYNNematology/OncologyStart: 11-05-2023 Telephone encounterKristofer Calix MD Work Phone: Cancer Appts MCComment on above:AppointmentStart: 10-23-2023 End: 09-52-6015oqiqtwgveyDwtpqmf Grace MisslerFacility:Val PCStart: 10-23-2023 End: 41-91-9184Prwhiry encounter procedureLourdes Garber [phone]-RbohwKettering [facility] Hospital [facility] Start: 09-28-2023 End: 24-11-5557Egjsceykd department patient visitBenny Uribe [facility] Start: 09-28-2023 End: 13-51-6162pkabkyiuuaSUDelma DUNHAMFacility:GIL TaylorkStart: 09-28-2023 End: 65-53-6717Tapedxd encounter procedureJANET DUNHAM [phone]-YbqgdK[facility] Start: 75-04-7963Qrgxduihk encounterKristofer Calix MD Work Phone: Canlbg Appts MCComment on above:Appointment RescheduledStart: 09-21-2023 End: 60-37-7304sohlktzmsuDhkbo Abhyankar MD Work Phone: Hematology/OncologyComment on above:Iron deficiency anemia secondary to blood loss (chronic) (Primary Dx)Start: 09-21-2023 End: 33-06-0124Imjcgdwckvqb consultation with Song Calix MD Work Phone: Hematology/OncologyStart: 08-03-2023 End: 87-71-6408pzshyywrznOnbix A KAPLEFacility:Val PCStart: 08-03-2023 End: 72-78-5559Wnptisg encounter procedureScott Cecily CASAS [phone]-ZoageKettering [facility] Hospital [facility] Start: 06-29-2023 End: 48-32-5466mfluznbwiaBbhbi A KAPLEFacility:Val PCStart: 06-29-2023 End: 04-11-9917Vktsfqf encounter procedureScott A KAPLE [phone]-FgxmxK[facility]tering [facility] Hospital [facility] Start: 15-83-7471aibzfgwslnNxaniqp Powell dice spotter/OncologyComment on above:Lab results/recommendationsStart: 06-19-2023 E-mail encounter from Jose Carlos Johnson RNSANDUSKYStart: 06-15-2023 End: 91-72-3062Evkfyh outpatient visit 25 minutesKristofer Calix MD Work Phone: Hematology/OncologyComment on above:Vitamin D deficiency (Primary Dx); Hypercalcemia; Iron deficiency anemia secondary to blood loss (chronic)Start: 06-15-2023 Telephone encounterKristofer Calix MD Work Phone: Cancer Appts MCComment on above:ResultsStart: 20-73-0325Lrcookfob encounterKristofer Calix MD Work Phone: Hematology/OncologyComment on above:Lab OrdersStart: 77-55-0414Piezothmm encounterKristofer Calxi MD Work Phone: Cancer Appts MCComment on above:Future Appointment Start: 05-31-2023 End: 08-94-1285buifdcmrpeUlbuu Abhyankar MD Work Phone: Hematology/OncologyComment on above:Primary hypercoagulable state (HCC) (Primary Dx); CVA, old, speech/language deficit; Hypercalcemia; Vitamin D deficiency; Iron deficiency anemia secondary to blood loss (chronic); Malaise and fatigueStart: 05-31-2023 End: 56-19-2213Pkajvzkpswpb consultation with Song Calix MD Work Phone: SANDUSKYStart: 05-25-2023 End: 32-81-6636yacxzbchzwWigjz A KAPLEFacility:Val PCStart: 05-25-2023 End: 72-30-4110Sabstfn encounter Coreen CASAS [phone]-FtmzlK[facility] Hospital [facility] Start: 05-01-2023 End: 89-22-6336sdxdfqojguKsnpa A KAPLEFacility:FTMCStart: 04-27-2023 End: 78-42-0851Zyz Drop offSelissa CASAS [facility] Start: 04-27-2023 End: 76-46-1151kxbgwtysozNjhyr A KAPLEFacility:FTMCStart: 04-25-2023 End: 52-81-1271tuatibenwlRbok L SchwabFacility:FT FM BellevueStart: 03-19-2023 End: 13-29-8728ihkamzlakjSwqmtVernell Calix MD Work Phone: Hematology/OncologyComment on above:Primary hypercoagulable state (HCC) (Primary Dx); Iron deficiency anemia secondary to blood loss (chronic); Vitamin D deficiency; CVA, old, speech/language deficit; Antiphospholipid antibody syndrome (HCC)Start: 03-19-2023 End: 13-91-7924Zonvgtifotqx consultation with Song Calix MD Work Phone: SANDUSKYStart: 02-15-2023 End: 20-38-1397ugtkopanyxSujjb A KAPLEFacility:[place] PCStart: 02-15-2023 End: 89-38-2522Odvfdoj encounter procedureScomike CASAS [phone]-KbpasKettering [facility] Hospital [facility] Start: 57-84-0467uttbyrnilaGfdkt A KAPLE Facility:[place] PCStart: 12-26-2022 End: 33-53-1256xjzftmeikzIobvxnk Grace MisslerFacility:[place] PCStart: 12-26-2022 End: 37-91-2714Vvplvit encounter procedureLourdes Garber [phone]-IbdpbKettering [facility] Hospital [facility] Start: 12-22-2022 End: 48-78-2550zoawqbfdrgNhcsw Abhyankar MD Work Phone: Hematology/OncologyComment on above:Primary hypercoagulable state (HCC) (Primary Dx); Iron deficiency anemia of ; Iron deficiency anemia secondary to blood loss (chronic); Vitamin D deficiencyStart: 12-22-2022 End: 50-08-1234Ogyeozumopsr consultation with Song Calix MD Work Phone: SANDUSKYStart: 65-85-1690Fmrsinooq encounterKristofer Calix MD Work Phone: Cancer Appts MCComment on above:AppointmentStart: 10-20-2022 End: 54-86-8811Rxjevyq encounter procedureScott A KAPLE [phone]-SprkaKettering [facility] Hospital [facility] Start: 09-28-2022 End: 48-39-6186twxnlgaijfArugpVernell Calix MD Work Phone: Hematology/OncologyComment on above:Primary hypercoagulable state (HCC); CVA, old, speech/language deficit; Cerebral hyponatremiaStart: 09-28-2022 End: 84-23-1668Hvigfdpvyreo consultation with Song Calix MD Work Phone: SANDUSKYStart: 09-26-2022 End: 60-66-8883Taotzip encounter procedureKristofer Calix [facility] Start: 61-64-9543Qqwoglynu encounterValeri Yeung RN Hematology/OncologyComment on above:OrdersStart: 09-05-2022 End: 24-14-4356Irjehqg encounter procedureCorey R MONTEZ [facility] Start: 08-07-2022 End: 78-20-8344Kjagkqt encounter procedureCorey R MONTEZ [facility] Start: 07-27-2022 End: 76-41-3756Fmrqqm outpatient visit 25 minutesKristofer Calix MD Work Phone: Hematology/OncologyComment on above:Primary hypercoagulable state (HCC) (Primary Dx); Iron deficiency anemia secondary to blood loss (chronic); CVA, old, speech/language deficitStart: 82-23-9901ZlkgeiOmbgk Abhyankar MD Work Phone: Hematology/OncologyComment on above:Refill Request Start: 05-16-2022 End: 85-12-0736zraitfossdZH WILTON FAZIOFacility:R6Uliiq: 05-10-2022 End: 91-22-2521kqnsplykodPN WILTON FAZIOFacility:Y6Enbzj: 05-08-2022 End: 51-50-4994Mhfpqfwczt and management of inpatientDR KALPANA THOMAS Facility:Q5Dnhmz: 05-05-2022 End: 24-35-7057wfdgzrfrdaHT KALPANA THOMASFacility:Q8Lyfqw: 05-01-2022 End: 66-81-5116mitzremqyxMA WILTON FAZIOFacility:G9Ftoot: 04-28-2022 End: 26-81-0352rcowfwgrshSM WILTON FAZIOFacility:Q0Onjki: 04-24-2022 End: 52-72-4482dfapxxaankVN KALPANA THOMASFacility:M1Hkvar: 04-20-2022 End: 00-88-7332vknyzvucdgAmqhm 10 Stew Work Phone: Hematology/OncologyComment on above:Iron deficiency anemia secondary to blood loss (chronic) (Primary Dx); Iron deficiency anemia of pregnancyStart: 04-19-2022 End: 85-89-3012quktiqymeeDP WILTON FAZIOFacility:K4Uopkc: 04-14-2022 End: 35-98-9992zrzxdxqwdhCY WILTON FAZIOFacility:A8Elpkg: 04-07-2022 End: 55-90-8996nlkxyyoyruUM WILTON FAZIOFacility:X0Obofk: 45-61-5568DtglfhSyfmoSalvador Calix MD Work Phone: Hematology/OncologyComment on above:Refill Request Start: 04-05-2022 End: 53-21-7537qclrgjxfocQxunm 11 Stew Work Phone: Hematology/OncologyComment on above:Iron deficiency anemia secondary to blood loss (chronic) (Primary Dx); Iron deficiency anemia of pregnancyStart: 50-33-3493Hpgtpqjks Foster Gonzalez Hematology/OncologyComment on above:Appointment; Patient Question; Medication Question; OrdersStart: 03-31-2022 End: 63-51-0024zsqyvxavjwAY WILTON FAZIOFacility:R8Pfrae: 03-27-2022 End: 55-21-8990jwknwqdwcoMvovvVernell Calix MD Work Phone: Hematology/OncologyComment on above:Iron deficiency anemia secondary to blood loss (chronic); Iron deficiency anemia of pregnancyStart: 03-27-2022 End: 16-98-2791Olplrfa encounter procedureKristofer Calix MD Work Phone: SANDUSKYStart: 38-86-8364Qndaadfkt encounterKristofer Calix MD Work Phone: Cancer Appts MCComment on above:ResultsStart: 03-24-2022 End: 89-86-4967edvqpplgncAG WILTON FAZIOFacility:W9Qmvne: 03-16-2022 End: 59-69-3229rqassnwsskUI WILTON FAZIOFacility:A2Xydyt: 02-24-2022 End: 81-37-6856iesmozumgiHD WILTON FAZIOFacility:A4Mevjw: 02-14-2022 End: 82-96-6988sjxhokkulpWW WILTON FAZIOFacility:M5Vcoyn: 01-30-2022 End: 24-44-9526jqsngjhycjGevvnVernell Calix MD Work Phone: Hematology/OncologyComment on above:Primary hypercoagulable state (HCC) (Primary Dx); CVA, old, speech/language deficit; Antiphospholipid antibody syndrome (HCC); Anemia, unspecified typeStart: 01-30-2022 End: 52-67-4921Ijnpahm encounter Dionicio Calix MD Work Phone: SANDUSKYStart: 01-24-2022 End: 98-53-4999xpdjootdjmTO WILTON FAZIOFacility:J3Kkkrl: 01-24-2022 End: 13-73-7867gxiqjpiyfuIY WILTON FAZIOFacility:F6Bifmk: 01-07-2022 End: 09-76-3543fcmbzhjqdnZG WILTON FAZIOFacility:I0Vojpp: 51-09-8719NrqvazVtvscaAwilda Pope RN Work Phone: Hematology/OncologyComment on above:Refill Request Start: 12-28-2021 End: 99-93-0079rpbeoinopbZF WILTON FAZIOFacility:T4Whpgf: 11-21-2021 End: 43-73-5316pvtfwfzfreKFINH A KAPLEWooster Community Hospitaltart: 11-21-2021 End: 87-37-8870Ixxcehxmvu hospital visit by Sean Casas Work Phone: stVZ LaboratoryStart: 11-14-2021 End: 91-94-9700Omojutg encounter procedureSAdena [facility] Start: 30-47-3333mhwvesvtqdIK WILTON FAZIOFacility:H1 Start: 10-25-2021 End: 39-70-0144lvqqqqqnbrFZ WILTON FAZIOFacility:M9Smiwc: 38-39-1611WhjahjQufpr Nickelson RNHematology/OncologyComment on above:Refill RequestStart: 09-23-2021 End: 44-08-8799dtntrmrcngGU WILTON FAZIOFacility:Y9Quvqw: 49-81-5111Voingsccq encounterMeme Easton RNHematology/OncologyComment on above:Medication QuestionStart: 17-84-9850Pscpnjpla encounterMeme Easton dice spotter/OncologyComment on above:Patient QuestionStart: 09-01-2021 End: 44-75-6932pkkasswdfxCB WILTON FAZIOFacility:S0Nmcmi: 08-31-2021 End: 30-38-3406Xiakgyu encounter Coreen CASAS [facility] Start: 08-29-2021 End: 56-43-8464opdzavobjeAM WILTON FAZIOFacility:R9Ozhdg: 08-26-2021 End: 99-69-3940byuqewqblqSB WILTON FAZIOFacility:M2Atjpa: 08-24-2021 End: 48-08-0244rsxvseimiiGX WILTON FAZIOFacility:U6Snpui: 86-09-0214Witohtmdo encounterMeme Easton RNHematology/OncologyComment on above:Patient Question Start: 08-19-2021 End: 48-76-0208Vqpbgmb encounter procedurePERNELL LONGORIA [facility] Start: 08-19-2021 End: 67-77-1022Cvf Drop offPERNELL LONGORIA [facility] Start: 08-19-2021 End: 75-08-0588Oddvada encounter procedurePERNELL LONGORIA [phone]-VeaplKettering [facility] [place] Start: 05-27-3355Fhsikzoxz encounterKristofer Calix MD Work Phone: Cancer Appts MCComment on above:Future Appointment Start: 08-01-2021 End: 61-73-9549Xpiysuz evaluation of patient and reportMa Nurse Delgado Golden Work Phone: Hematology/OncologyComment on above:Infective urethritis (Primary Dx)Start: 59-37-6497Ljwuicg encounter procedureHaseeb MorelFacility:[facility] BStart: 60-14-9556Ukvntdy encounter procedure ERIKA LONDONFacility:9459Start: 05-25-2017 End: 73-18-1771YpkqbwhhnjTBHYT R [facility] Procedures DateProcedureProcedure DetailPerforming ClinicianStart: 87-90-8133WZ OB BPP W NON-STRESSCorey Montez DO Work Phone: Start: 59-26-9157DD OB BPP W NON-STRESSCorey Montez DO Work Phone: Start: 70-24-2939Clexi dip stick/tablet rgnt non-auto w/o micrscpCorey Montez DO Work Phone: Start: 08-00-1601VU OB BPP W NON-STRESSCorey Montez DO Work Phone: Start: 17-04-8359RE OB GROWTHCorey Montez DO Work Phone: Start: 56-98-6605AEN CBC WITH AUTO DIFFCorey Montez DO Work Phone: [phone]: 86-92-1272Rqwho dip stick/tablet rgnt non-auto w/o micrscpCorey Montez DO Work Phone: Start: 40-52-7927Nbyce dip stick/tablet rgnt non-auto w/o micrscpCorey Montez DO Work Phone: Start: 59-57-1598Qfksi dip stick/tablet rgnt non-auto w/o micrscpCorey Montez DO Work Phone: Start: 75-15-8121UF OB CERVICAL LENGTHCorey Montez DO Work Phone: Start: 87-07-9924SHT UA (CLEAN/CATCH) LUMP RECEIVER/MICRO IF IND.Wilton Montez DO Work Phone: Start: 94-58-5887IAK THYROID STIM HORMONECorey Montez DO Work Phone: Start: 70-58-5871Cytsl dip stick/tablet rgnt non-auto w/o micrscpCorey Montez DO Work Phone: Start: 48-38-3791Oqbvc dip stick/tablet rgnt non-auto w/o micrscpCorey Montez DO Work Phone: Start: 75-51-5787Fwqpvmx quantitative blood xcpt reagent stripCharles Cortes MD Work Phone: Start: 16-30-7532Lqfso dip stick/tablet rgnt non-auto w/o micrscpCorey Montez DO Work Phone: Start: 15-87-3406Ndgxw of thyroid stimulating hormone tshNot In System Ref ProvStart: 33-03-1712Vqptnlbr screenMukul Noyola MD Work Phone: Start: 11-23-7519Xnax scrn 1+ class nonchromoNot In System Ref ProvStart: 32-61-7374Aotqqgxwtr glycosylated x7xKhbbrxtx Provider ExternalStart: 12-42-1536YXY 1&2 AB/AG SCREEN (P24 AG)Not In System Ref Prov Start: 12-55-5899Ywbp ia hepatitis b surface antigenNot In System Ref ProvStart: 58-99-5444NLEM AND SCREENNot In System Ref ProvStart: 09-52-7812XFN CBC WITH AUTO DIFFCorey Montez DO Work Phone: Start: 01-97-0366Bbsar dip stick/tablet rgnt non-auto w/o micrscpCorey Montez DO Work Phone: Start: 76-87-8155HN OB TRANSVAGINALCorey Montez DO Work Phone: Start: 04-01-9102Johbh test visual color cmprsn methsCorey Montez DO Work Phone: Start: 91-29-8035XMXRONZFJ VAGINITIS (HTRX)Wilton Montez DO Work Phone: Start: 45-56-8383Mekfy dip stick/tablet rgnt non-auto w/o micrscpCorey Montez DO Work Phone: Start: 56-05-3767ZY PELVISCorey Montez DO Work Phone: Start: 38-00-8783Kx uterus limited 1/> fetusesCorey Montez DO Work Phone: Start: 95-10-1351AEO CBC WITH AUTO DIFFCorey Montez DO Work Phone: Start: 58-41-2685KDX IMMUNOGLOBULIN GCorey Montez DO Work Phone: Start: 44-02-7851UUR IMMUNOGLOBULIN MCorey Montez DO Work Phone: Start: 47-47-2611SXF MISCELLANEOUS TESTCorey Montez DO Work Phone: Start: 71-84-5737VXW APTTCorey Montez DO Work Phone: Start: 84-14-9223FGIOVT V LEIDEN MUTATIONCorey Montez DO Work Phone: Start: 19-59-9397ZUDAJ HOMOCYSTEINECorey Montez DO Work Phone: Start: 22-51-1510AHXF FIBRINOGENCorey Montez DO Work Phone: Start: 82-45-7629SEVBOEV C-FUNCTIONALCorey Montez DO Work Phone: Start: 30-28-3678UCLVZYX S-ANTIGENCorey Montez DO Work Phone: Start: 80-61-0709KGPFYC PROTHROMBIN TIME INR W/O COUM Wilton Montez DO Work Phone: Start: 02-66-5970LNA ANTITHROMBIN ACTIVITYCorey Montez DO Work Phone: Start: 97-74-4426Znhbl dip stick/tablet rgnt non-auto w/o micrscpCorey Montez DO Work Phone: Start: 12-37-8637HVQ TESTCorey Montez DO Work Phone: Start: 89-85-2944AHE DRUG SCREEN RAPID (URINE)Wilton Montez DO Work Phone: Start: 32-87-2659OC OB TRANSVAGINALCorey Montez DO Work Phone: Start: 04-04-2024 End: 08-40-3740Cpphs dip stick/tablet rgnt non-auto w/o micrscpCorey Montez DO Work Phone: Start: 69-53-6417Aaixzuk refused by patient Immunization not carried out because of patient decisionNoms NurseStart: 44-06-0634Pgdbkvct of Products of Conception, External ApproachDR WILTON HERRMANN Start: 09-12-3473Psob bld gluc mntr dev cleared fda spec home useCcf Provider Start: 12-07-0436Xmcybquaqmr observation [Identifier] in Cervix by Cyto stain Wilton Herrmann DO Work Phone: Start: 11-21-2021 End: 94-80-1912Ydbrk-fetoprotein serumScanning Provider ExternalStart: 11-21-2021 End: 26-53-4297OIZFGUH STUDY NON-PROMEDICAScanning Provider ExternalStart: 56-16-2349JQRNMJYWVDZMB TESTINGSraubrie Mullins MD Work Phone: Start: 24-32-2436Odpma depression screening assessment Nevin Golden Work Phone: Start: 84-74-2388UPN CULTUREDHRUV PATELStart: 08-53-2931RELXYIMSI PATELStart: 83-52-7746SET CELL COUNT WITH DIFFERENTIALDHRUV PATELStart: 64-57-5724MKQGPBR SIMPSON VIRUS PCRDHRUV PATELStart: 62-89-4376OIYXMBF, CSFDHRUV PATELStart: 98-23-9250VEIZWL BASIC PROTEIN, CSFDHRUV PATELStart: 67-86-1523JBDWSEWTXFZ BANDINGDHRUV PATELStart: 81-09-0737ISBBLWX, CSFDHRUV MONGE Start: 04-46-5087AZBTOTH-INRDHRUV PATELStart: 68-60-0171Tdxfoz puncture lumbar diagnosticDHRUV PATELStart: 16-35-9309BTYQDCYOTPEDBKRB ANTIBODY PANELDHRUV MONGE Start: 29-10-2108HNBKPJCRMHS AB IGG, IGM, IGADHRUV PATELStart: 15-75-8056HPADBPO PATELStart: 40-51-4281KVWGGYCGPRAX, SERUMDHRUV PATELStart: 19-98-0017XVRW ARUP 1DHRUV PATELStart: 68-33-0684TLJZOPZXVSD PATELStart: 05-22-4789YACSGIRDIZFX PATELStart: 72-40-4541Zsygls of breastDERIK SIDELL Start: 02-54-5570Xodcyuawir of wisdom toothDERIK SIDELL endoscopy for ovarian cysts to drainDERIK SIDELL Vaccine refused by patientCOVID-19 vaccine dose declined( Confirmed )PERNELL SIDELL Plan of Treatment DateCare ActivityDetailAuthorStart: 39-04-2038ZIT Vaccine (1 - 1-dose 75+ series)RSV Vaccine (1 - 1-dose 75+ series)[facility] Hospitaltart: 98-21-9401Ynrwb BMI ScreeningAdult BMI ScreeningThe [facility] Hospital SystemStart: 91-11-8372Ljeiriy ScreeningTobacco ScreeningThe [facility] Hospital SystemStart: 29-66-7097Wyqgnnk ScreeningTobacco ScreeningThe [facility] SystemStart: 01-05-2026 End: 77-38-8867CP MFM with or without consultUS MFM with or without consult Imaging Routine Multigravida of advanced maternal age in second trimester Antiphospholipid syndrome complicating , antepartum Gestational diabetes mellitus (GDM) in second trimester controlled on oral hypoglycemic drug AMA (advanced maternal age) +, second trimester Hypothyroidism, unspecified type History of stroke History of loss in prior , currently in second trimester Hypothyroidism affecting in second trimester Family history of autism Hyponatremia Expected: 01/05/2026 (Approximate), Expires: 01/05/2026[employer] Work Phone: comment on above:Expected: 01/05/2026 (Approximate), Expires: 01/05/2026Start: 80-98-0690Wzjnt BMI ScreeningAdult BMI Screening [facility] SystemStart: 46-20-8390Uptogxc ScreeningTobacco Screening [facility] SystemStart: 36-20-8442Jeliu BMI ScreeningAdult BMI Screening [facility] SystemStart: 04-07-2025 End: 03-22-4610Rabqgscttasq consultation with vexcosh0204/07/2025 1:30 PM EST Telemedicine Maternal- Medicine at [facility] [address] [facility] [place] [phone] Roxana Mays PA-C [address] [place] [address] M[facility]- Medicine at [facility] HospitalStart: 03-17-2025 End: 24-81-6719Rrrdzvlamluj consultation with ieeajqr0103/17/2025 8:30 AM EST Telemedicine [facility] Rheumatology, A Department of [address] [address] Sam Callahan MD [address] [address] [facility], A Department of [facility] HospitalStart: 03-10-2025 End: 62-39-4477Cgwmhlu encounter wzlqqigzy02/11/2025 9:50 AM EST Routine NOMJaylan COLVIN [address] [place], [phone] Wilton Herrmann DO [address] [place] [address] NOMS Piyush OBGYNStart: 03-10-2025 End: 41-15-6127Yksegkcdqjtg consultation with wdpbghg6203/10/2025 8:00 AM EST Telemedicine Maternal- Medicine at [facility] [address] [facility] [place] [phone] Sana Palma MD [address] [place] [address] M[facility]- Medicine at [facility] Southtart: 89-48-2073BUA ( or age 60+ yrs) (1 - Risk 1-dose series)RSV ( or age 60+ yrs) (1 - Risk 1- dose series)[facility] SystemStart: 03-02-2025 End: 16-46-4044Oolxns-up zpmqygdxx87/03/2025 11:30 AM EST Visit (SP) Office Hematology/Oncology [address] [place] [address] Katherine Negrete APRN.SETTER UP [address] [place] [address] 2 month follow upHematology/OncologyComment on above:2 month follow upStart: 03-02-2025 End: 33-29-8518Fcwlioa encounter frebwexsp13/03/2025 11:15 AM EST Office Visit [facility] [address] [place] [address] labNortMunson Healthcare [facility] LaboratoryComment on above:labStart: 02-23-2025 End: 35-93-7739Kghbisv encounter vjgxtamqp60/27/2025 9:00 AM EDT Routine NOMJaylan ROBBGYN [address] [facility] [address] [place], [id number] Wilton Herrmann DO [address] [facility] [address] [place] [address] SHILOH [place] OBGYNStart: 02-18-2025 End: 58-70-4120JDS W Auto Differential panel - BloodCOMPLETE BLOOD COUNT AND DIFFERENTIAL Lab Routine 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) Vitamin D deficiency Primary hypercoagulable state (HCC) Expected: 02/18/2025, Expires: 05/20/2025leveland ClinicComment on above:Expected: 02/18/2025, Expires: 05/20/2025Start: 02-18-2025 End: 83-93-8151Cwiuyfljnysok metabolic 2000 panel - Serum or PlasmaCOMPREHENSIVE METABOLIC PANEL Lab Routine Antiphospholipid antibody positive Iron deficiency anemiasecondary to blood loss (chronic) Vitamin D deficiency Primary hypercoagulable state (HCC) Expected: 02/18/2025, Expires: 05/20/2025leveland ClinicComment on above:Expected: 02/18/2025, Expires: 05/20/2025Start: 02-16-2025 End: 71-45-1674Npkpeyu encounter procedureProMedica Rheumatology, A Department of [facility] Memorialtart: 07-30-2673Kdbuzehdl for malignant neoplasm of cervixNOMS HealthcareStart: 02-09-2025 End: 91-62-9564IP biophysical profile w non stress testUS biophysical profile w non stress test Imaging Routine Third trimester (HHS-HCC) 28 weeks gestation of (HHS-HCC) Anemia complicating childbirth (HHS-HCC) Anticoagulant long-term use Antiphospholipid antibody positive Blood pressure elevated without history of HTN Coagulation defect, unspecified (HHS-HCC) Expected: 02/09/2025 (Approximate), Expires: 08/10/2025 NOM[facility] HealthcareComment on above:Expected: 02/09/2025 (Approximate), Expires: 08/10/2025Start: 02-09-2025 End: 87-26-5571FZ for pregnancyUS OB follow up transabdominal approach Imaging Routine Third trimester (HHS-HCC) 28 weeks gestation of (HHS-HCC) Anemia complicating childbirth (HHS-HCC) Anticoagulant long-term use Antiphospholipid antibody positive Blood pressure elevated without history of HTN Coagulation defect, unspecified (HHS-HCC) Expected: 02/09/2025, Expires: 06/12/2025NOMS HealthcareComment on above:Expected: 02/09/2025, Expires: 06/12/2025Start: 02-09-2025 End: 47-66-9810Pgeghnj encounter hpovldxmz84/13/2025 10:30 AM EDT Routine SHILOH COLVIN [address] [place] [address] Wilton Herrmann DO [address] [place] [address] SHILOH HAMILTONtart: 02-06-2025 End: 07-37-6533Wnvkdektrgze consultation with vircxya4402/06/2025 2:00 PM EDT Telemedicine Maternal- Medicine at [facility] [address] [place] [address] Mukul Noyola MD [address] [facility], [address] [place] [address] Maternal- Medicine at [facility] Southtart: 02-05-2025 End: 31-11-1033Kksncpf encounter wbstcqohx89/09/2025 1:00 PM EDT Appointment [facility] [place] [address] [facility] [address] [place] [address] [facility] Medicine [place] RougeStart: 02-01-2025 End: 74-53-0394Kale complete W/O contrastEcho complete W/O contrast Echocardiography Routine 22 weeks gestation of Antiphospholipid syndrome complicating , antepartum Multigravida of advanced maternal age in second trimester Expected: 02/01/2025 (Approximate), Expires: 01/01/2026 [facility] Work Phone: comment on above:Expected: 02/01/2025 (Approximate), Expires: 01/01/2026Start: 01-19-2025 End: 71-56-7351Imllssk encounter taitjeyux48/22/2025 9:00 AM EDT Routine NOMJaylan COLVIN [address] [facility] [address] [place], [id number] Wilton Herrmann DO [address] [facility] [place] [address] SHILOH HAMILTONtart: 01-13-2025 End: 64-02-7353Ogwknewexscx consultation with qzzspru2201/13/2025 10:00 AM EDT Telemedicine Maternal- Medicine at [facility] [address] [facility] [address] Roxana Mays, PAPilyC [address] [place] [address], [id number] Maternal- Medicine at [facility] Southtart: 01-05-2025 End: 26-22-4895Dqzbtzh encounter vtobkqjgo37/08/2025 2:40 PM EDT Routine NOMS Piyush OBGYN [address] [facility] [address] [place], [id number] Wilton Herrmann DO [address] [place] [address] NOMS Piyush OBGYNStart: 01-05-2025 End: lead ECGECG 12 lead unit performed ECG Routine Thyroid disease Gestational diabetes mellitus (GDM), antepartum, gestational diabetes method of control unspecified (HHS-HCC) Multigravida of advanced maternal age in second trimester (HHS-HCC) Lightheaded Dizziness Expected: 01/05/2025 (Approximate), Expires:01/05/2026NOMS HealthcareComment on above:Expected: 01/05/2025 (Approximate), Expires: 01/05/2026Start: 01-05-2025 End: 85-57-2040Hqezziwtipbguj 2D completeEchocardiogram 2D complete Echocardiography Routine Thyroid disease Gestational diabetes mellitus (GDM), antepartum, gestational diabetes method of control unspecified (HHS-HCC) Multigravida of advanced maternal age in second trimester (HHS-HCC) Lightheaded Dizziness Expected: 01/05/2025 (Approximate), Expires: 01/05/2027[facility] Work Phone: comment on above:Expected: 01/05/2025 (Approximate), Expires: 01/05/2027Start: 01-01-2025 End: 78-25-1444Eoaiznzkoizm consultation with mskgefs3601/01/2025 2:30 PM EDT Telemedicine [facility] [place] [address] [facility] [address] [place] [address] Mukul Noyola MD [address] [facility], [address] [place] [address] [facility] [place]Start: 01-01-2025 End: 63-91-8905JA MFM with or without consultUS MFM with [...] on above:Expected: 01/01/2025, Expires: 01/01/2026Start: 01-01-2025 End: 61-66-0836Aaqrlgg encounter xolkjnvwe52/04/2025 1:00 PM EDT Appointment [facility] [place] [address] [address] [facility] Medicine [place] RougeStart: 12-29-2024 COVID-19 Vaccine ( season)COVID-19 Vaccine ( season)[facility]Start: 11-19-0923Vajdrtgnp vaccinationMercy Health St. [facility] Hospitaltart: 12-24-2024 End: 90-37-5500ZIV W Auto Differential panel - BloodCOMPLETE BLOOD COUNT AND DIFFERENTIAL Lab Routine Primary hypercoagulable state (HCC) CVA, old, spee ch/language deficit Cerebral hyponatremia Personal history of TIA (transient ischemic attack) Expected: 12/24/2024, Expires: 03/25/2025[facility] Work Phone: Comment on above:Expected: 12/24/2024, Expires: 03/25/2025Start: 12-24-2024 End: 32-96-7781Jkwbyncca (Vitamin B12) [Mass/volume] in Serum or PlasmaVITAMIN B12 Lab Routine Primary hypercoagulable state (HCC) CVA, old, speech/language deficit Cerebral hyponatremia Personal history of TIA (transient ischemic attack) Expected: 12/24/2024, Expires: 03/25/2025leveland ClinicComment on above:Expected: 12/24/2024, Expires: 03/25/2025Start: 12-24-2024 End: 39-14-1109Abgusycughbss metabolic 2000 panel - Serum or PlasmaCOMPREHENSIVE METABOLIC PANEL Lab Routine Primary hypercoagulable state (HCC) CVA, old, speech/language deficit Cerebral hyponatremia Personal history of TIA (transient ischemic attack) Expected: 12/24/2024, Expires: 03/25/2025[facility] Comment on above:Expected: 12/24/2024, Expires: 03/25/2025Start: 12-24-2024 End: 49-18-7003Aalmbqva [Mass/volume] in Serum or PlasmaFERRITIN Lab Routine Primary hypercoagulable state (HCC) CVA, old, speech/language deficit Cerebral hyponatremia Personal history of TIA (transient ischemic attack) Expected: 12/24/2024, Expires: 03/25/2025leveland ClinicComment on above:Expected: 12/24/2024, Expires: 03/25/2025Start: 12-24-2024 End: 65-11-6419Fcwu and Iron binding capacity panel - Serum or PlasmaIRON AND TIBC Lab Routine Primary hypercoagulable state (HCC) CVA, old, speech/language deficit Cerebral hyponatremia Personal history of TIA (transient ischemic attack) Expected: 12/24/2024, Expires: 03/25/2025leveland ClinicComment on above:Expected: 12/24/2024, Expires: 03/25/2025Start: 12-23-2024 End: 583847-eowrndgqxtptqy D3 [Mass/volume] in Serum or PlasmaVITAMIN D 25 HYDROXY Lab Routine 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) Vitamin D deficiency Expected: 12/23/2024, Expires: 03/24/2025[facility]and [facility] Work Phone: Comment on above:Expected: 12/23/2024, Expires: 03/24/2025Start: 12-22-2024 End: 99-79-0630Ywnhgs-up pughazsgb29/25/2025 1:30 PM EDT Visit (SP) Office Hematology/Oncology [address] [place] [phone] Katherine Negrete TRAFFIC OPERATOR.SETTER UP [address] [place] [address] 8 week follow up labHematology/OncologyComment on above:8 week follow up labStart: 12-22-2024 End: 24-69-4764Mlnoanl encounter /25/2025 1:15 PM EDT Office Visit [facility] [address] [place], [place] [address] [address] 8 week follow up labNortMunson Healthcare [facility] LaboratoryComment on above:8 week follow up labStart: 12-17-2024 End: 29-33-5635Ymjybmhbjemr consultation with ikbtxto5112/17/2024 1:30 PM EDT Telemedicine Maternal- Medicine at [facility] [address] [place] [address] Alisa Saba, TRAFFIC OPERATOR-SETTER UP [address] [place] [address] Maternal- Medicine at [facility] Sout[facility]art: 12-11-2024 End: 36-39-5609Mlunvta encounter upgeghune75/14/2025 9:10 AM EDT Routine NOMS Piyush COLVIN [address] [id number] Wilton Herrmann DO [address] [place] [address] NOMS Piyush ROBBGYNStart: 12-03-2024 End: 91-90-4382Umggklpbakyg consultation with mnbcmff4012/03/2024 2:00 PM EDT Telemedicine Maternal- Medicine at [facility] [address] [place] [address] Alisa Saba, VICTOR HUGO-SETTER UP [address] [place] [address] Maternal- Medicine at [facility]: 11-20-2024 End: 55-28-9182Vgmfu fetoprotein, maternalAlpha fetoprotein, maternal Lab Routine Second trimester ([facility]) Expected: 11/20/2024 (Approximate), Expires: 01/21/2025NOMS HealthcareComment on above:Expected: 11/20/2024 (Approximate), Expires: 01/21/2025Start: 11-20-2024 End: 11-28-2946Pbnjlax encounter qgfqcllac91/24/2025 10:10 AM EDT Routine NOMS BCP OB [address] [place] [address] Wilton Herrmann, DO [address] [facility] [address] [place] [address] NOMS BCP OBStart: 11-19-2024 End: 03-95-4392xecajedzxt80/23/2025 9:30 AM EDT Support Visit Maternal- Medicine at [facility] [address] [place] [address] Lorena Enciso, RN [address] [facility], [address] [place] [address], [place] [address] Stephanie Quiros LD Fischer, Kelli, JERONIMO [address] [facility] TRISH, [address] [facility] [place] [place] [address] Maternal- Medicine at [facility]: 11-12-2024 End: 44-06-8540FS MFM with or without consultUS MFM with or without consult Imaging Routine Gestational diabetes mellitus (GDM), antepartum, gestational diabetes method of control unspecified Expected: 11/12/2024 (Approximate), Expires: 10/13/2025[facility] Work Phone: comment on above:Expected: 11/12/2024 (Approximate), Expires: 10/13/2025Start: 10-30-2024 End: 33-82-6716Ofogbrj encounter yzgpyryfb35/03/2025 10:40 AM EDT Routine NOMS BCP OB [address] [facility] [place] [address] Wilton Herrmann, DO [address] [place] [address] NOMS BCP OBStart: 10-30-2024 End: 25-58-9281Kdxuwje encounter nmqyerrsf52/03/2025 9:30 AM EDT Routine NOMS BCP OB [address] [place] [address] Wilton Herrmann, DO [address] [place] [address] ArrivedNOMS BCP OBComment on above: ArrivedStart: 10-28-2024 End: 84-84-5024Veupsn-up pteqxjwzr36/01/2025 2:30 PM EDT Visit (SP) Office Hematology/Oncology [address] [place], [place] [phone] Katherine Negrete, TRAFFIC OPERATOR.SETTER UP [address] [place] [address] 3 month follow upHematology/OncologyComment on above:3 month follow upStart: 10-28-2024 End: 95-40-6195Lyeckna encounter rbtbjwcid59/01/2025 2:15 PM EDT Office Visit [facility] [address] [place] [address] labs - patient prefers to come same dayNortUniversity of Pennsylvania Health System [facility] LaboratoryComment on above:labs - patient prefers to come same day Start: 10-27-2024 End: 54-53-2332Vukietv encounter rxhutrnfo21/30/2025 9:20 AM EDT Office Visit [facility] OB [address] [facility] [place] [address] Wilton Herrmann, DO [address] [place] [address] [facility] OBStart: 10-20-2024 End: 85-35-0923Ubrnfsygjmgk / ancillary services hcuktnbxmk93/23/2025 1:00 PM EDT Ancillary Procedure [facility] OB [address] [facility] [place] [address] NOMS BCP OBStart: 10-10-2024 End: 83-96-6115Qdkuzq-up fjanhtbbh57/13/2025 10:40 AM EDT Visit (SP) Office Hematology/Oncology [address] [place] [address] Kristofer Calix MD [address] [place] [address] 3 month follow upHematology/OncologyComment on above:3 month follow upStart: 10-10-2024 End: 40-69-3146Wkgwlrn encounter flofkljwq64/13/2025 10:15 AM EDT Office Visit [facility] [address] [place] [address] labs - patient prefers to come same dayNorth Oaks Medical Center LaboratoryComment on above:labs - patient prefers to come same day Start: 10-02-2024 End: 06-65-4300ESI/RhABO/Rh Lab Routine Missed menses , unspecified gestational age Expected: 10/02/2024 (Approximate), Expires: 10/02/2025NOMS HealthcareComment on above:Expected: 10/02/2024 (Approximate), Expires: 10/02/2025Start: 10-02-2024 End: 18-24-7556Akkaa type and Indirect antibody screen panel - BloodType and screen Lab Routine Missed menses , unspecified gestational age Expected: 10/02/2024 (Approximate), Expires: 10/02/2025[facility] Work Phone: comment on above:Expected: 10/02/2024 (Approximate), Expires: 10/02/2025Start: 10-02-2024 End: 15-25-6555Uoktx of abuse panel - Urine by Screen methodRapid drug screen, urine Lab Routine , unspecified gestational age Encounter for supervision of normal first in first trimester Expected: 10/02/2024 (Approximate), Expires: 10/02/2025N[facility] HealthcareComment on above:Expected: 10/02/2024 (Approximate), Expires: 10/02/2025Start: 10-02-2024 End: 41-90-7755zndatxmnau40/05/2025 1:00 PM EDT Initial [facility] OB [facility] [place] [address] NBTJ BCP OBStart: 10-02-2024 End: 04-84-7941Wduvdzmnrulq / ancillary services tckayfdxor87/05/2025 12:30 PM EDT Ancillary Procedure [facility] OB [facility] [address] [place] [address] QLDW BCP OBStart: 08-27-2024 End: 12-59-8230Urfqjs-up imdstyidv01/30/2025 2:00 PM EDT Visit (SP) Office Hematology/Oncology [address] [place] [address] [address] [place], [place] [phone] Kristofer Calix MD [address] [place] [address] 3 month follow upHematology/OncologyComment on above:3 month follow upStart: 08-27-2024 End: 70-77-6889Vteaymr encounter bmtqudcng97/30/2025 1:45 PM EDT Office Visit [facility] [address] [place] [address] labs - patient prefers to come same dayNorth Oaks Medical Center LaboratoryComment on above:labs - patient prefers to come same day Start: 08-26-2024 End: 871833-ayuyeymfwqnsrm D3 [Mass/volume] in Serum or PlasmaVITAMIN D 25 HYDROXY Lab Routine 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 Vitamin D deficiency Expected: 08/26/2024, Expires: 11/25/2024[facility] ClinicComment on above: Expected: 08/26/2024, Expires: 11/25/2024Start: 08-26-2024 End: 50-70-7101NOX W Auto Differential panel - BloodCOMPLETE BLOOD COUNT AND DIFFERENTIAL Lab Routine 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 Vitamin D deficiency Expected: 08/26/2024, Expires: 11/25/2024[facility] Work Phone: Comment on above:Expected: 08/26/2024, Expires: 11/25/2024Start: 08-26-2024 End: 81-88-5480Swqcphivh (Vitamin B12) [Mass/volume] in Serum or PlasmaVITAMIN B12 Lab Routine 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 Vitamin D deficiency Expected: 08/26/2024, Expires: 11/25/2024[facility] ClinicComment on above: Expected: 08/26/2024, Expires: 11/25/2024Start: 08-26-2024 End: 04-91-9722Xzzuadwyemyls metabolic 2000 panel - Serum or PlasmaCOMPREHENSIVE METABOLIC PANEL Lab Routine Antiphospholipid antibody positive Iron deficiency anemiasecondary to blood loss (chronic) Malaise and fatigue Vitamin D deficiency Expected: 08/26/2024, Expires: 11/25/2024[facility] ClinicComment on above: Expected: 08/26/2024, Expires: 11/25/2024Start: 08-26-2024 End: 99-83-4030Bffsxrwa [Mass/volume] in Serum or PlasmaFERRITIN Lab Routine 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) Malaise and fatigue Vitamin D deficiency Expected: 08/26/2024, Expires: 11/25/2024[facility] ClinicComment on above:Expected: 08/26/2024, Expires: 11/25/2024Start: 08-26-2024 End: 19-65-1653Ikki and Iron binding capacity panel - Serum or PlasmaIRON AND TIBC Lab Routine 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 Vitamin D deficiency Expected: 08/26/2024, Expires: 11/25/2024[facility] ClinicComment on above: Expected: 08/26/2024, Expires: 11/25/2024Start: 08-26-2024 End: 06-35-7015Pnotvauxyal [Units/volume] in Serum or PlasmaTHYROID STIMULATING HORMONE Lab Routine Antiphospholipid antibody positive 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) Malaise and fatigue Vitamin D deficiency Expected: 08/26/2024, Expires: 11/25/2024[facility] ClinicComment on above: Expected: 08/26/2024, Expires: 11/25/2024Start: 07-24-2024 End: 47-05-8218ZfzuybzuvbftKgfadodnaiso Lab Routine Irregular menstrual cycle Expected: 07/24/2024 (Approximate), Expires: 07/24/2025[facility] Work Phone: comment on above:Expected: 07/24/2024 (Approximate), Expires: 07/24/2025Start: 40-15-4268AGmG,Tdap and Td Vaccines (2 - Td or Tdap) DTaP,Tdap and Td Vaccines (2 - Td or Tdap)[facility] HospitalEnventum SystemStart: 74-39-8124HDzV/Tdap/Td vaccine (2 - Td or Tdap)DTaP/Tdap/Td vaccine (2 - Td or Tdap)[facility]USStart: 54-20-0531Uxwlu microalbumin profile [facility] Hospitaltart: 06-23-2024 End: 20-25-2514GH PelvisUS Pelvis w/ TV Imaging Routine Vaginal bleeding Vaginal discharge Pelvic pain in female Expected: 06/23/2024, Expires: 06/23/2025NOMS HealthcareComment on above:Expected: 06/23/2024, Expires: 06/23/2025Start: 06-02-2024 End: 13-30-4402Ndnbdjy encounter ptxqolxkc67/03/2025 11:20 AM EST Office Visit [facility] [address] [place] [phone] Wilton Herrmann, [address] [place] [address] [facility] OBStart: 05-21-2024 End: 87-69-3401Jjdjpo-up ouojdlxex37/22/2025 2:20 PM EST Visit (SP) Office Hematology/Oncology [address] [place], [place] [phone] Kristofer Calix MD [address] [place] [address] 3 month follow up with labHematology/OncologyComment on above:3 month follow up with labStart: 05-21-2024 End: 33-07-2106Mfhvloz encounter laxpzqafa31/22/2025 2:00 PM EST Office Visit [facility] [address] [place] [address] 3 month follow up with labNortMunson Healthcare [facility] LaboratoryComment on above:3 month follow up with labStart: 05-06-2024 End: 21-59-5514AM for pregnancyNOMS Healthcare Work Phone: comment on above:Expected: 05/06/2024, Expires: 05/06/2025Start: 05-06-2024 End: 61-49-8055Gunhwyi encounter ogvfzoqbz80/07/2025 1:50 PM EST Routine [facility] [address] [place] [phone] Wilton Herrmann [address] [place] [address] [facility] OBStart: 04-09-2024 End: 62-59-2698Qhwmyj-up encounterHematology/OncologyComment on above:3 month follow up with labStart: 04-09-2024 End: 28-10-4271Upnczfz encounter procedureNorth Oaks Medical Center LaboratoryComment on above:3 month follow up with labStart: 04-04-2024 End: 88-34-5974YSQ/RhABO/Rh Lab Routine Missed menses , unspecified gestational age Expected: 04/04/2024 (Approximate), Expires: 04/04/2025[facility] HealthcareComment on above:Expected: 04/04/2024 (Approximate), Expires: 04/04/2025Start: 04-04-2024 End: 87-54-0137Fxehd type and Indirect antibody screen panel - BloodType and screen Lab Routine Missed menses , unspecified gestational age Expected: 04/04/2024 (Approximate), Expires: 04/04/2025[facility] Work Phone: comment on above:Expected: 04/04/2024 (Approximate), Expires: 04/04/2025Start: 04-04-2024 End: 64-95-9201Rcjfp of abuse panel - Urine by Screen methodRapid drug screen, urine Lab Routine , unspecified gestational age Encounter for supervision of normal first in first trimester Expected: 04/04/2024 (Approximate), Expires: 04/04/2025[facility] HealthcareComment on above:Expected: 04/04/2024 (Approximate), Expires: 04/04/2025Start: 04-04-2024 End: 23-36-1139TI Pelvis transvaginalUS OB transvaginal Imaging Routine Missed menses Expected: 04/04/2024 (Approximate), Expires: 04/04/2025[facility] Healthcare Comment on above:Expected: 04/04/2024 (Approximate), Expires: 04/04/2025Start: 04-02-2024 End: 916475-letzbmsylifjxj D3 [Mass/volume] in Serum or PlasmaVITAMIN D 25 HYDROXY Lab Routine Iron deficiency anemia secondary to blood loss (chronic) Vitamin Ddeficiency Malaise and fatigue Expected: 04/02/2024 (Approximate), Expires: 07/02/2024[facility] ClinicComment on above:Expected: 04/02/2024 (Approximate), Expires: 07/02/2024Start: 04-02-2024 End: 29-07-3684QUX W Auto Differential panel - BloodCOMPLETE BLOOD COUNT AND DIFFERENTIAL Lab Routine Iron deficiency anemia secondary to blood loss (ch ronic) Vitamin D deficiency Malaise and fatigue Expected: 04/02/2024 (Approximate), Expires: 01/01/2025[facility] ClinicComment on above:Expected: 04/02/2024 (Approximate), Expires: 01/01/2025Start: 04-02-2024 End: 65-46-4051Kacnexqzv (Vitamin B12) [Mass/volume] in Serum or PlasmaVITAMIN B12 Lab Routine Iron deficiency anemia secondary to blood loss (chronic) Vitamin D deficiency Malaise and fatigue Expected: 04/02/2024 (Approximate), Expires: 01/01/2025[facility] ClinicComment on above:Expected: 04/02/2024 (Approximate), Expires: 01/01/2025Start: 04-02-2024 End: 01-06-8058Fxvwkssnqksrf metabolic 2000 panel - Serum or PlasmaCOMPREHENSIVE METABOLIC PANEL Lab Routine Iron deficiency anemia secondary to blood loss (chronic) Vitamin D deficiency Malaise and fatigue Expected: 04/02/2024 (Approximate), Expires: 01/01/2025[facility] ClinicComment on above:Expected: 04/02/2024 (Approximate), Expires: 01/01/2025Start: 04-02-2024 End: 61-93-6607Ecsnnaaf [Mass/volume] in Serum or PlasmaFERRITIN Lab Routine Iron deficiency anemia secondary to blood loss (chronic) Vitamin D deficiency M alaise and fatigue Expected: 04/02/2024 (Approximate), Expires: 01/01/2025 [facility]:Expected: 04/02/2024 (Approximate), Expires: 01/01/2025Start: 04-02-2024 End: 79-62-5372Fagtcz [Mass/volume] in Serum or PlasmaFOLATE, SERUM Lab Routine Iron deficiency anemia secondary to blood loss (chronic) Vitamin D deficiency Malaise and fatigue Expected: 04/02/2024 (Approximate), Expires: 01/01/2025 [facility] HospitalComment on above:Expected: 04/02/2024 (Approximate), Expires: 01/01/2025Start: 04-02-2024 End: 04-13-4350Clay and Iron binding capacity panel - Serum or PlasmaIRON AND TIBC Lab Routine Iron deficiency anemia secondary to blood loss (chronic) Vitamin D deficiency Malaise and fatigue Expected: 04/02/2024 (Approximate), Expires: 01/01/2025[facility] SystemComment [facility]:Expected: 04/02/2024 (Approximate), Expires: 01/01/2025Start: 04-02-2024 End: 24-43-9684Mtdugdwvyld [Units/volume] in Serum or PlasmaTHYROID STIMULATING HORMONE Lab Routine Iron deficiency anemia secondary to blood loss (chronic) Vit vogel D deficiency Malaise and fatigue Expected: 04/02/2024 (Approximate), Expires: 07/02/2024[facility] Work Phone: Comment on above:Expected: 04/02/2024 (Approximate), Expires: 07/02/2024Start: 01-05-2024 End: 21-76-3149DOC W Auto Differential panel - BloodCOMPLETE BLOOD COUNT AND DIFFERENTIAL Lab Routine Iron deficiency anemia secondary to blood loss (ch ronic) Vitamin D deficiency Malaise and fatigue Expected: 01/05/2024 (Approximate), Expires: 01/01/2025[facility] ClinicComment [facility] above:Expected: 01/05/2024 (Approximate), Expires: 01/01/2025Start: 01-05-2024 End: 16-29-1916Dbjrijkusjolf metabolic 2000 panel - Serum or PlasmaCOMPREHENSIVE METABOLIC PANEL Lab Routine Iron deficiency anemia secondary to blood loss (chronic) Vitamin D deficiency Malaise and fatigue Expected: 01/05/2024 (Approximate), Expires: 5[facility] ClinicComment on above:Expected: 01/05/2024 (Approximate), Expires: 01/01/2025Start: 01-02-2024 End: 88-17-7682Ctbxqc-up nrrizyfky70/04/2024 1:45 PM EDT Visit (SP) Office Hematology/Oncology [address] [place], [place] [phone] Kristofer Calix MD [address] [place] [address] 8 WEEK FOLLOW UPHematology/OncologyComment on above:8 WEEK FOLLOW UPStart: 01-02-2024 End: 43-00-4425Nvwqiqy encounter wlpweisoc02/04/2024 1:30 PM EDT Office Visit [facility] [address] [place] [address] 8 WEEK FOLLOW UPNortMunson Healthcare [facility] LaboratoryComment on above:8 WEEK FOLLOW UPStart: 80-98-2065Ksaau-19 Vaccine ( season)Covid-19 Vaccine ( season)[facility]: 41-28-9331Kjovi-19 Vaccine ( season)Covid-19 Vaccine ( season)[facility]: 15-96-0343Cjkzxuqku vaccinationMarion Hospital Start: 11-29-2023 End: 82-56-1376ktryqeaxsh80/01/2024 1:30 PM EDT Infusion Center Hematology/Oncology [address] [place] [address] VENOFER 300Hematology/OncologyComment on above:VENOFER 300Start: 11-22-2023 End: 55-35-0911libejxgztc07/25/2024 1:30 PM EDT Infusion Center Hematology/Oncology [address] [place] [address] VENOFER 300Hematology/OncologyComment on above:VENOFER 300Start: 11-15-2023 End: 80-53-3239csujfpstqe07/18/2024 1:30 PM EDT Infusion Center Hematology/Oncology [address] [place] [address] [place] [address] VENOFER 300Hematology/OncologyComment on above:VENOFER 300Start: 09-13-2023 End: 56-13-261491794705-nriduylkdokmmv D3 [Mass/volume] in Serum or PlasmaVITAMIN D 25 HYDROXY Lab Routine Vitamin D deficiency 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) Expected: 09/13/2023 (Approximate), Expires: 12/13/2023[facility] Work Phone: Comment on above:Expected: 09/13/2023 (Approximate), Expires: 12/13/2023Start: 09-13-2023 End: 31-35-1770Eurxhpe.ionized [Moles/volume] in BloodCALCIUM IONIZED BLOOD Lab Routine Vitamin D deficiency 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) Expected: 09/13/2023 (Approximate), Expires: 12/13/2023 [facility] Work Phone: Comment on above:Expected: 09/13/2023 (Approximate), Expires: 12/13/2023Start: 09-13-2023 End: 62-70-0014NFZ W Auto Differential panel - BloodCBC + DIFF Lab Routine Vitamin D deficiency 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) Expected: 09/13/2023 (Approximate), Expires: 06/15/2024[facility] Work Phone: Comment on above:Expected: 09/13/2023 (Approximate), Expires: 06/15/2024Start: 09-13-2023 End: 48-19-6223Dbbcjnmzr (Vitamin B12) [Mass/volume] in Serum or PlasmaVITAMIN B12 BLOOD Lab Routine Vitamin D deficiency 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) Expected: 09/13/2023 (Approximate), Expires: 06/15/2024[facility] Work Phone: Comment on above:Expected: 09/13/2023 (Approximate), Expires: 06/15/2024Start: 09-13-2023 End: 03-95-2892Tyqpbxkeuzdot metabolic 2000 panel - Serum or PlasmaCOMP METABOLIC PANEL Lab Routine Vitamin D deficiency 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) Expected: 09/13/2023 (Approximate), Expires: 06/15/2024[facility] Work Phone: Comment on above:Expected: 09/13/2023 (Approximate), Expires: 06/15/2024Start: 09-13-2023 End: 28-44-7155Pbacbrld [Mass/volume] in Serum or PlasmaFERRITIN BLD Lab Routine Vitamin D deficiency 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) Expected: 09/13/2023 (Approximate), Expires: 06/15/2024[facility] Work Phone: Comment on above:Expected: 09/13/2023 (Approximate), Expires: 06/15/2024Start: 09-13-2023 End: 10-41-9582Esjktp [Mass/volume] in Serum or PlasmaFOLATE SERUM Lab Routine Vitamin D deficiency 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) Expected: 09/13/2023 (Approximate), Expires: 06/15/2024[facility] Work Phone: Comment on above:Expected: 09/13/2023 (Approximate), Expires: 06/15/2024Start: 09-13-2023 End: 00-90-8230Xmze and Iron binding capacity panel - Serum or PlasmaIRON + TIBC Lab Routine Vitamin D deficiency 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) Expected: 09/13/2023 (Approximate), Expires: 06/15/2024 [facility] Work Phone: Comment on above:Expected: 09/13/2023 (Approximate), Expires: 06/15/2024Start: 09-13-2023 End: 23-76-6914Cazcbplymg.intact [Mass/volume] in Serum or PlasmaPTH INTACT BLD Lab Routine Vitamin D deficiency 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) Expected: 09/13/2023 (Approximate), Expires: 12/13/2023 [facility] Work Phone: Comment on above:Expected: 09/13/2023 (Approximate), Expires: 12/13/2023Start: 06-15-2023 End: 604492-siypeeytmqvhnv D3 [Mass/volume] in Serum or PlasmaVITAMIN D 25 HYDROXY Lab Routine Vitamin D deficiency Expected: 06/15/2023 (Approximate), Expires: 09/14/2023[facility] Work Phone: Comment on above:Expected: 06/15/2023 (Approximate), Expires: 09/14/2023Start: 06-15-2023 End: 23-44-3758Mwfpfqi.ionized [Moles/volume] in BloodCALCIUM IONIZED BLOOD Lab Routine Vitamin D deficiency Hypercalcemia Expected: 06/15/2023 (Approximate), Expires: 09/14/2023[facility] Work Phone: Comment on above:Expected: 06/15/2023 (Approximate), Expires: 09/14/2023Start: 06-15-2023 End: 29-91-3805OMH W Auto Differential panel - BloodCBC + DIFF Lab Routine Iron deficiency anemia secondary to blood loss (chronic) Expected: 06/15/2023 (Approximate), Expires: 06/12/2024[facility] Work Phone: Comment on above:Expected: 06/15/2023 (Approximate), Expires: 06/12/2024Start: 06-15-2023 End: 35-63-3259Hpwcuftdk (Vitamin B12) [Mass/volume] in Serum or PlasmaVITAMIN B12 BLOOD Lab Routine Iron deficiency anemia secondary to blood loss (chronic) Expected: 06/15/2023 (Approximate), Expires: 06/12/2024[facility] Work Phone: Comment on above:Expected: 06/15/2023 (Approximate), Expires: 06/12/2024Start: 06-15-2023 End: 31-43-5866Dtzcqhwqywvcw metabolic 2000 panel - Serum or PlasmaCOMP METABOLIC PANEL Lab Routine Iron deficiency anemia secondary to blood loss (chronic) Expected:06/15/2023 (Approximate), Expires: 06/12/2024[facility] Work Phone: Comment on above:Expected: 06/15/2023 (Approximate), Expires: 06/12/2024Start: 06-15-2023 End: 16-62-9296Hoauohfp [Mass/volume] in Serum or PlasmaFERRITIN BLD Lab Routine Iron deficiency anemia secondary to blood loss (chronic) Expected: 06/15/2023 (Approximate), Expires: 06/12/2024[facility] Work Phone: Comment on above:Expected: 06/15/2023 (Approximate), Expires: 06/12/2024Start: 06-15-2023 End: 78-66-7799Wopkqt [Mass/volume] in Serum or PlasmaFOLATE SERUM Lab Routine Iron deficiency anemia secondary to blood loss (chronic) Expected: 06/15/2023 (Approximate), Expires: 06/12/2024[facility] Work Phone: Comment on above:Expected: 06/15/2023 (Approximate), Expires: 06/12/2024Start: 06-15-2023 End: 50-27-4641Uhbm and Iron binding capacity panel - Serum or PlasmaIRON + TIBC Lab Routine Iron deficiency anemia secondary to blood loss (chronic) Expected: 06/15/2023 (Approximate), Expires: 06/12/2024[facility] Work Phone: Comment on above:Expected: 06/15/2023 (Approximate), Expires: 06/12/2024Start: 06-15-2023 End: 14-68-7399URC, INTACT (WITHOUT CALCIUM)PTH, INTACT (WITHOUT CALCIUM) Lab Routine Vitamin D deficiency Hypercalcemia Expected: 06/15/2023 (Approximate), Expires: 09/14/2023[facility] Work Phone: Comment on above:Expected: 06/15/2023 (Approximate), Expires: 09/14/2023Start: 06-15-2023 End: 74-09-9104Dkgyxedvled [Units/volume] in Serum or PlasmaTSH BLD Lab Routine Malaise and fatigue Expected: 06/15/2023 (Approximate), Expires: 09/14/2023 [facility] Work Phone: Comment on above:Expected: 06/15/2023 (Approximate), Expires: 09/14/2023Start: 06-14-2023 End: 345352-fkbeigpoqjdudl D3 [Mass/volume] in Serum or PlasmaVITAMIN D 25 HYDROXY Lab Routine Hypercalcemia Vitamin D deficiency Expected: 06/14/2023 (Approximate), Expires: 09/13/2023[facility] Work Phone: Comment on above:Expected: 06/14/2023 (Approximate), Expires: 09/13/2023Start: 06-14-2023 End: 69-93-4331Qfiyqog.ionized [Moles/volume] in BloodCALCIUM IONIZED BLOOD Lab Routine Hypercalcemia Vitamin D deficiency Expected: 06/14/2023 (Approximate), Expires: 09/13/2023[facility] Work Phone: Comment on above:Expected: 06/14/2023 (Approximate), Expires: 09/13/2023Start: 06-14-2023 End: 55-61-8331NVH, INTACT (WITHOUT CALCIUM)PTH, INTACT (WITHOUT CALCIUM) Lab Routine Hypercalcemia Vitamin D deficiency Expected: 06/14/2023 (Approximate), Expires: 09/13/2023[facility] Work Phone: Comment on above:Expected: 06/14/2023 (Approximate), Expires: 09/13/2023Start: 06-14-2023 End: 67-30-6729Zuphylndxji [Units/volume] in Serum or PlasmaTSH BLD Lab Routine Hypercalcemia Malaise and fatigue Expected: 06/14/2023 (Approximate), Expires: [address] [place] [address] Work Phone: Comment on above:Expected: 06/14/2023 (Approximate), Expires: 09/13/2023Start: 05-14-2023 End: 74-67-3000EUG W Auto Differential panel - BloodCBC + DIFF Lab Routine Primary hypercoagulable state (HCC) Iron deficiency anemia secondary to blood loss (chronic) Vitamin D deficiency CVA, old, 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) Expected: 05/14/2023 (Approximate), Expires: 03/19/2024[facility] Work Phone: Comment on above:Expected: 05/14/2023 (Approximate), Expires: 03/19/2024Start: 05-14-2023 End: 93-45-1615Lbovsksxh (Vitamin B12) [Mass/volume] in Serum or PlasmaVITAMIN B12 BLOOD Lab Routine Primary hypercoagulable state (HCC) Iron deficiency anemia secondary to blood loss (chronic) Vitamin D deficiency CVA, old, 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) Expected: 05/14/2023 (Approximate), Expires: 03/19/2024[facility] Work Phone: Comment on above:Expected: 05/14/2023 (Approximate), Expires: 03/19/2024Start: 05-14-2023 End: 53-54-9095Eceetapcgqtnj metabolic 2000 panel - Serum or PlasmaCOMP METABOLIC PANEL Lab Routine Primary hypercoagulable state (HCC) Iron deficiency anemia secondary to blood loss (chronic) Vitamin D deficiency CVA, old, 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) Expected: 05/14/2023 (Approximate), Expires: 03/19/2024[facility] Work Phone: Comment on above:Expected: 05/14/2023 (Approximate), Expires: 03/19/2024Start: 05-14-2023 End: 94-16-8385Obwrfzxo [Mass/volume] in Serum or PlasmaFERRITIN BLD Lab Routine Primary hypercoagulable state (HCC) Iron deficiency anemia secondary to blood loss (chronic) Vitamin D deficiency CVA, old, 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) Expected: 05/14/2023 (Approximate), Expires: 03/19/2024[facility] Work Phone: Comment on above:Expected: 05/14/2023 (Approximate), Expires: 03/19/2024Start: 05-14-2023 End: 76-61-0553Hojatf [Mass/volume] in Serum or PlasmaFOLATE SERUM Lab Routine Primary hypercoagulable state (HCC) Iron deficiency anemia secondary to blood loss (chronic) Vitamin D deficiency CVA, old, 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) Expected: 05/14/2023 (Approximate), Expires: 03/19/2024[facility] Work Phone: Comment on above:Expected: 05/14/2023 (Approximate), Expires: 03/19/2024Start: 05-14-2023 End: 34-51-7743Bsnl and Iron binding capacity panel - Serum or PlasmaIRON + TIBC Lab Routine Primary hypercoagulable state (HCC) Iron deficiency anemia secondary to blood loss (chronic) Vitamin D deficiency CVA, old, 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) Expected: 05/14/2023 (Approximate), Expires: 03/19/2024[facility] Work Phone: Comment on above:Expected: 05/14/2023 (Approximate), Expires: 03/19/2024Start: 71-25-2436Roeywauxqp Health ScreeningBehavioral Health ScreeningMercy Health St. [facility] Hospitaltart: 33-25-1986Adtiehsmpl AssessmentDepression AssessmentMercy Health St. [facility] Hospitaltart: 02-16-2023 End: 709399-qglsnfgfffcszc D3 [Mass/volume] in Serum or PlasmaVITAMIN D 25 HYDROXY Lab Routine Primary hypercoagulable state (HCC) Iron deficiency anemia secondary to blood loss (chronic) Vitamin D deficiency Expected: 02/16/2023 (Approximate), Expires: 04/18/2023[facility] Work Phone: Comment on above:Expected: 02/16/2023 (Approximate), Expires: 04/18/2023Start: 02-16-2023 End: 38-09-3327QYD W Auto Differential panel - BloodCBC + DIFF Lab Routine Primary hypercoagulable state (HCC) Iron deficiency anemia secondary to blood loss (chronic) Expected: 02/16/2023 (Approximate), Expires: 12/23/2023[facility] Work Phone: Comment on above:Expected: 02/16/2023 (Approximate), Expires: 12/23/2023Start: 02-16-2023 End: 18-28-4274Zelxdlydo (Vitamin B12) [Mass/volume] in Serum or PlasmaVITAMIN B12 BLOOD Lab Routine Primary hypercoagulable state (HCC) Iron deficiency anemia secondary to blood loss (chronic) Expected: 02/16/2023 (Approximate), Expires: 12/23/2023[facility] Work Phone: Comment on above:Expected: 02/16/2023 (Approximate), Expires: 12/23/2023Start: 02-16-2023 End: 48-32-6194Awfksujfocfeq metabolic 2000 panel - Serum or PlasmaCOMP METABOLIC PANEL Lab Routine Primary hypercoagulable state (HCC) Iron deficiency anemia secondary to blood loss (chronic) Expected: 02/16/2023 (Approximate), Expires: 12/23/2023[facility] Work Phone: Comment on above:Expected: 02/16/2023 (Approximate), Expires: 12/23/2023Start: 02-16-2023 End: 84-99-9451Afairrmi [Mass/volume] in Serum or PlasmaFERRITIN BLD Lab Routine Primary hypercoagulable state (HCC) Iron deficiency anemia secondary to blood loss (chronic) Expected: 02/16/2023 (Approximate), Expires: 12/23/2023[facility] Work Phone: Comment on above:Expected: 02/16/2023 (Approximate), Expires: 12/23/2023Start: 02-16-2023 End: 12-47-2636Ernpvy [Mass/volume] in Serum or PlasmaFOLATE SERUM Lab Routine Primary hypercoagulable state (HCC) Iron deficiency anemia secondary to blood loss (chronic) Expected: 02/16/2023 (Approximate), Expires: 12/23/2023[facility] Work Phone: Comment on above:Expected: 02/16/2023 (Approximate), Expires: 12/23/2023Start: 02-16-2023 End: 14-06-4119Hkda and Iron binding capacity panel - Serum or PlasmaIRON + TIBC Lab Routine Primary hypercoagulable state (HCC) Iron deficiency anemia secondary to blood loss (chronic) Expected: 02/16/2023 (Approximate), Expires: 12/23/2023[facility] Work Phone: Comment on above:Expected: 02/16/2023 (Approximate), Expires: 12/23/2023Start: 31-82-0383Pipda-19 Vaccine ()Covid- 19 Vaccine ()[facility]: 85-94-3426Eucksxujz vaccinationMercy Health St. [facility] Hospitaltart: 46-50-8884FBG TESTINGPAP TESTINGMercy Health St. [facility] Hospitaltart: 14-77-8679Ctwsvkdkm for malignant neoplasm of cervixPap Testing [facility]: 11-28-2022 End: 60-18-1959CMO W Auto Differential panel - BloodCBC + DIFF Lab Routine Primary hypercoagulable state (HCC) CVA, old, speech/language deficit Cerebral hyponatremia Expected: 11/28/2022 (Approximate), Expires: 10/04/2023[facility] Work Phone: Comment on above:Expected: 11/28/2022 (Approximate), Expires: 10/04/2023Start: 11-28-2022 End: 56-21-3472Kuoyvxvsr (Vitamin B12) [Mass/volume] in Serum or PlasmaVITAMIN B12 BLOOD Lab Routine Primary hypercoagulable state (HCC) CVA, old, speech/language deficitCerebral hyponatremia Expected: 11/28/2022 (Approximate), Expires: 06/06/[address] [place] [address] Work Phone: Comment on above:Expected: 11/28/2022 (Approximate), Expires: 10/04/2023Start: 11-28-2022 End: 44-64-7411Xrfwrbapgkrfy metabolic 2000 panel - Serum or PlasmaCOMP METABOLIC PANEL Lab Routine Primary hypercoagulable state (HCC) CVA, old, speech/language deficit Cerebral hyponatremia Expected: 11/28/2022 (Approximate), Expires: [address] [place] [address] Work Phone: Comment on above:Expected: 11/28/2022 (Approximate), Expires: 10/04/2023Start: 11-28-2022 End: 00-98-8772Spiyrrzi [Mass/volume] in Serum or PlasmaFERRITIN BLD Lab Routine Primary hypercoagulable state (HCC) CVA, old, speech/language deficit Cerebral hyponatremia Expected: 11/28/2022 (Approximate), Expires: 10/04/2023[facility] Work Phone: Comment on above:Expected: 11/28/2022 (Approximate), Expires: 10/04/2023Start: 11-28-2022 End: 67-41-5082Gbvitk [Mass/volume] in Serum or PlasmaFOLATE SERUM Lab Routine Primary hypercoagulable state (HCC) CVA, old, speech/language deficit Cerebral hyponatremia Expected: 11/28/2022 (Approximate), Expires: 10/04/2023[facility] Work Phone: Comment on above:Expected: 11/28/2022 (Approximate), Expires: 10/04/2023Start: 11-28-2022 End: 34-51-5487Ygea and Iron binding capacity panel - Serum or PlasmaIRON + TIBC Lab Routine Primary hypercoagulable state (HCC) CVA, old, speech/language deficit Cerebral hyponatremia Expected: 11/28/2022 (Approximate), Expires: [address] [place] [address] Work Phone: Comment on above:Expected: 11/28/2022 (Approximate), Expires: 10/04/2023Start: 09-21-2022 End: 97-80-9618AJL W Auto Differential panel - BloodCBC + DIFF Lab Routine Primary hypercoagulable state (HCC) 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, old, speech/language deficit Expected: 09/21/2022 (Approximate), Expires: 07/28/2023[facility] Work Phone: Comment on above:Expected: 09/21/2022 (Approximate), Expires: 07/28/2023Start: 09-21-2022 End: 24-24-8256Wsealunsp (Vitamin B12) [Mass/volume] in Serum or PlasmaVITAMIN B12 BLOOD Lab Routine Primary hypercoagulable state (HCC) 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, old, speech/language deficit Expected: 09/21/2022 (Approximate), Expires: 07/28/2023[facility] Work Phone: Comment on above:Expected: 09/21/2022 (Approximate), Expires: 07/28/2023Start: 09-21-2022 End: 94-99-1649Tomrwlvvcbcud metabolic 2000 panel - Serum or PlasmaCOMP METABOLIC PANEL Lab Routine Primary hypercoagulable state (HCC) 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, old, speech/language deficit Expected: 09/21/2022 (Approximate), Expires: 07/28/2023[facility] Work Phone: Comment on above:Expected: 09/21/2022 (Approximate), Expires: 07/28/2023Start: 09-21-2022 End: 14-11-0206Wfuhfnqh [Mass/volume] in Serum or PlasmaFERRITIN BLD Lab Routine Primary hypercoagulable state (HCC) 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, old, speech/language deficit Expected: 09/21/2022 (Approximate), Expires: 07/28/2023[facility] Work Phone: Comment on above:Expected: 09/21/2022 (Approximate), Expires: 07/28/2023Start: 09-21-2022 End: 34-72-3012Xdsycm [Mass/volume] in Serum or PlasmaFOLATE SERUM Lab Routine Primary hypercoagulable state (HCC) 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, old, speech/language deficit Expected: 09/21/2022 (Approximate), Expires: 07/28/2023[facility] Work Phone: Comment on above:Expected: 09/21/2022 (Approximate), Expires: 07/28/2023Start: 09-21-2022 End: 61-69-3397Wpub and Iron binding capacity panel - Serum or PlasmaIRON + TIBC Lab Routine Primary hypercoagulable state (HCC) 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: 01-30-2022 End: 52-54-5612Mtlmkwbu [Mass/volume] in Serum or PlasmaFERRITIN BLD Lab Routine Anemia, unspecified type Expected: 01/30/2022, Expires: 01/30/2023[facility] Work Phone: Comment on above:Expected: 01/30/2022, Expires: 01/30/2023Start: 01-30-2022 End: 89-10-0263Vpwg and Iron binding capacity panel - Serum or PlasmaIRON + TIBC Lab Routine Anemia, unspecified type Expected: 01/30/2022, Expires: 01/30/2023 [facility] Work Phone: Comment on above:Expected: 01/30/2022, Expires: 01/30/2023Start: 40-92-2051Ruggtnyyq vaccinationMercy Health St. Elizabeth Boardman Hospitaltart: 12-29-2021 End: 66-28-4473Oxoebbk encounter gyojvemzq11/01/2022 [facility] Maternal MedStart: 64-56-8542LOIJSPHBCS ASSESSMENTDEPRESSION ASSESSMENTMercy Health St. [facility] Hospitaltart: 47-01-4669Mptkh depression screening assessmentDEPRESSION SCREENINGMercy Health St. [facility] Hospitaltart: 12-04-2020 Screening for malignant neoplasm of cervixCervical Cancer ScreeningMercy Health St. [facility] Hospitaltart: 31-58-4782Xvvmaauy screenDiabetes screenCLINCH VALLEY [facility] Start: 85-29-7663GTG TESTINGHPV TESTINGMercy Health St. Elizabeth [facility] Hospitaltart: 10-22-2015 Screening for malignant neoplasm of cervixCLINCH VALLEY MEDICAL CENTERStart: 77-67-4328CQX Vaccine (1 - 3-dose SCDM series)HPV Vaccine (1 - 3-dose SCDM series)[facility]: 50-59-6179RMA Vaccines (1 - 3-dose SCDM series)HPV Vaccines (1 - 3-dose SCDM series)[facility]: 00-22-2080Sfihcwedn for malignant neoplasm of cervixPap smearCLINCH VALLEY MEDICAL CENTERStart: 2004 DTaP,Tdap and Td Vaccines (1 - Tdap)DTaP,Tdap and Td Vaccines (1 - Tdap) [facility]: 11-67-6435Wcbverhna B Vaccine (1 of 3 - 19+ 3-dose series)Hepatitis B Vaccine (1 of 3 - 19+ 3-dose series)[facility]: 09-45-2761Maqkfrbvs B Vaccines (1 of 3 - 19+ 3-dose series)Hepatitis B Vaccines (1 of 3 - 19+ 3-dose series)[facility] HealthcareStart: 82-27-1407Goafr BMI Follow Up PlanAdult BMI Follow Up PlanAtrium Health Clevelandtart: 29-48-1038Xnmyq BMI ScreeningAdult BMI ScreeningAtrium Health Clevelandtart: 26-54-1622Whlefqk ScreeningAnxiety ScreeningMercy Health St. [facility] Hospitaltart: 16-37-9325Qgtquiloqq Screening Depression ScreeningMercy Health St. Elizabeth [facility] Hospitaltart: 43-44-0823NIGYMVIZT C SCREENING HEPATITIS C SCREENINGMercy Health St. [facility] Hospitaltart: 57-74-2555Uopcgovnz C screeningCLINCH VALLEY MEDICAL CENTERStart: 40-33-3428WHW SCREENINGHIV SCREENINGMar[facility] Hospital Start: 75-09-9430ERH screeningHIV ScreeningMercy Health St. Elizabeth [facility] Hospitaltart: 1998 History of varicella vaccinationVaricella Vaccines (1 of 2 - 13+ 2-dose series) [facility] CenterStart: 67-07-3401Zgkeqamony ScreenDepression ScreenBON [facility] Hospitalart: 02-50-0848Rbhdjfedgl ScreeningDepression ScreeningProOhioHealth Hardin Memorial Hospitaltart: 28-85-0809Jyzohuu ScreeningTobacco ScreeningAtrium Health Clevelandtart: 92-08-4129YPrK/Tdap/Td Vaccines (1 - Tdap)DTaP/Tdap/Td Vaccines (1 - Tdap)[facility] CenterStart: 77-21-6587UWQFP-19 VACCINE (#1)COVID-19 VACCINE (#1)[facility]: 61-87-9555PBGSU-19 VACCINE (1)COVID-19 VACCINE (1) [facility]art: 36-00-6182CPK Vaccines (1 of 1 - Standard series)MMR Vaccines (1 of 1 - Standard series)[facility] CenterStart: 02-02-5166Mwluutgqy vaccine (1 of 2 - 2-dose childhood series)Varicella vaccine (1 of 2 - 2-dose childhood series)[facility]: 97-01-7297NJJWR-19 Vaccine (#1) COVID-19 Vaccine (#1)[facility]: 33-39-5754KTCBKYPQH B (1 of 3 - 3-dose series)HEPATITIS B (1 of 3 - 3-dose series)[facility] Hospital[facility]: 27-35-0050Dponlmzst B Vaccine (1 of 3 - 3-dose series)Hepatitis B Vaccine (1 of 3 - 3-dose series)[facility] End: 40-48-3347Caxtm Fetoprotein, MaternalBON [facility] Work Phone: comment on above:Once for 1 Occurrences starting 11/21/2021 until 11/21/2021 End: 49-74-4141Emoznzekk[place] Ab, HEp-2 Substrate, S (NASEEM by IFA)Antinuclear Ab, HEp-2 Substrate, S (NASEEM by IFA) Lab Routine Antiphospholipid syndrome Antiphospholipid syndrome complicating , antepartum History of CVA (cerebrovascular accident) 1 Occurrences starting 02/16/2025 until 02/16/2026 [facility] Work Phone: comment on above:1 Occurrences starting 02/16/2025 until 6Bacteria identified in Urine by CultureUrine culture Microbiology Routine Missed menses Ordered: 04/04/2024[facility] HealthcareComment on above:Ordered: 04/04/2024acteria identified in Urine by CultureUrine culture Microbiology Routine Missed menses Ordered: 10/02/2024[facility] HealthcareComment on above:Ordered: 10/02/2024 End: 38-60-1605EHI W Auto Differential panel - BloodCBC + DIFF Lab Routine Primary hypercoagulable state (HCC) CVA, old, 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[facility]) Every 2 months for 6 Occurrences starting 01/30/2022 until 01/30/2023[facility] Work Phone: Comment on above:Every 2 months for 6 Occurrences starting 01/30/2022 until 3CBC W Auto Differential panel - BloodCBC and differential Lab Routine Missed menses , unspecified gestational age Ordered: 04/04/2024[facility] HealthcareComment on above:Ordered: 4CBC W Auto Differential panel - BloodCBC and differential Lab Routine Missed menses , unspecified gestational age Ordered: 10/02/2024[facility] HealthcareComment on above:Ordered: 10/02/2024BC W Auto Differential panel - BloodCBC and differential Lab Routine 28 weeks gestation of ([facility]) Ordered: 02/09/2025[facility] Work Phone: comment on above:Ordered: 02/09/2025HLAMYDIA TRACHOMATIS (GENITO/STI)CHLAMYDIA TRACHOMATIS (GENITO/STI) Lab Routine Vaginal bleeding Vaginal discharge Ordered: 06/23/2024[facility] HealthcareComment on above: Ordered: 06/23/2024HLAMYDIA TRACHOMATIS (GENITO/STI)CHLAMYDIA TRACHOMATIS (GENITO/STI) Lab Routine Vaginal discharge Ordered: 11/20/2024[facility] Healthcare Comment on above:Ordered: 11/20/2024 End: 45-87-4052Lnluhnrujh profile (C3 AND C4)Complement profile (C3 AND C4) Lab Routine Antiphospholipid syndrome Antiphospholipid syndrome complicating , antepartum History of CVA (cerebrovascular accident) 1 Occurrences starting 02/16/2025 until 02/16/2026[facility] SystemComment on above:1 Occurrences starting 02/16/2025 until 02/16/2026 End: 10-94-4291Cxnvirhmcxups metabolic 2000 panel - Serum or PlasmaCOMP METABOLIC PANEL Lab Routine Primary hypercoagulable state (HCC) CVA, old, 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) Every 2 months for 6 Occurrences starting 01/30/2022 until 01/30/2023[facility] Work Phone: Comment on above:Every 2 months for 6 Occurrences starting 01/30/2022 until 01/30/2023 End: 45-78-8448XOQ double-stranded (dsDNA) Abs by Crithidia luciliae IFADNA double-stranded (dsDNA) Abs by Crithidia luciliae IFA Lab Routine Antiphospholipid syndrome Antiphospholipid syndrome complicating , antepartum History of CVA (cerebrovascular accident) 1 Occurrences starting 02/16/2025 until 02/16/2026[facility] SystemComment on above:1 Occurrences starting 02/16/2025 until 02/16/2026 End: 69-20-9149HYA PanelENA Panel Lab Routine Antiphospholipid syndrome Antiphospholipid syndrome complicating , antepartum History of CVA (cerebrovascular accident) 1 Occurrences starting 02/16/2025 until 02/16/2026 [facility] SystemComment on above:1 Occurrences starting 02/16/2025 until 02/16/2026Hemoglobin A1c/Hemoglobin.total in BloodHemoglobin A1c Lab Routine Missed menses , unspecified gestational age Ordered: 04/04/2024[facility] HealthcareComment on above:Ordered: 04/04/2024Hemoglobin A1c/Hemoglobin.total in BloodHemoglobin A1c Lab Routine Missed menses , unspecified gestational age Ordered: 10/02/2024[facility] HealthcareComment on above:Ordered: 10/02/2024Hepatitis B virus surface Ag [Presence] in Serum or Plasma by ImmunoassayHepatitis B surface antigen Lab Routine Missed menses , unspecified gestational age Ordered: 04/04/2024[facility] HealthcareComment on above: Ordered: 04/04/2024Hepatitis B virus surface Ag [Presence] in Serum or Plasma by ImmunoassayHepatitis B surface antigen Lab Routine Missed menses , unspecified gestational age Ordered: 10/02/2024[facility] HealthcareComment on above: Ordered: 10/02/2024Hepatitis C virus Ab [Presence] in Serum or Plasma by ImmunoassayHepatitis C antibody Lab Routine Missed menses , unspecified gestational age Ordered: 04/04/2024[facility] HealthcareComment on above:Ordered: 04/04/2024Hepatitis C virus Ab [Presence] in Serum or Plasma by Immunoassay Hepatitis C antibody Lab Routine Missed menses , unspecified gestational age Ordered: 10/02/2024[facility] HealthcareComment on above:Ordered: 10/02/2024HIV-1/HIV-2 antigen/antibody combination immunoassayHIV-1 and HIV-2 antibodies Lab Routine Missed menses , unspecified gestational age Ordered: 04/04/2024[facility] HealthcareComment on above:Ordered: 04/04/2024 HIV-1/HIV-2 antigen/antibody combination immunoassayHIV-1 and HIV-2 antibodies Lab Routine Missed menses , unspecified gestational age Ordered: 10/02/2024[facility] HealthcareComment on above:Ordered: 10/02/2024Neisseria gonorrhoeae DNA [Presence] in Unspecified specimen by LELO with probe detection Neisseria gonorrhea DNA probe, direct Lab Routine Vaginal bleeding Vaginal discharge Ordered: 06/23/2024[facility] HealthcareComment on above:Ordered: 06/23/2024 Neisseria gonorrhoeae DNA [Presence] in Unspecified specimen by LELO with probe detectionNeisseria gonorrhea DNA probe, direct Lab Routine Vaginal discharge Ordered: 11/20/2024[facility] HealthcareComment on above:Ordered: 11/20/2024Reagin Ab [Presence] in Serum by RPRRPR Lab Routine Missed menses , unspecified gestational age Ordered: 04/04/2024[facility] HealthcareComment on above:Ordered: 4Reagin Ab [Presence] in Serum by RPRRPR Lab Routine Missed menses , unspecified gestational age Ordered: 10/02/2024[facility] HealthcareComment on above:Ordered: 10/02/2024Rubella antibody, IgGRubella antibody, IgG Lab Routine Missed menses , unspecified gestational age Ordered: 04/04/2024 [facility] HealthcareComment on above:Ordered: 04/04/2024ubella antibody, IgGRubella antibody, IgG Lab Routine Missed menses , unspecified gestational age Ordered: 10/02/2024[facility] HealthcareComment on above:Ordered: 10/02/2024 SURESWAB(R) ADVANCED VAGINITIS PLUS, TMASURESWAB(R) ADVANCED VAGINITIS PLUS, TMA Pathology and Cytology Routine Vaginal bleeding Vaginal discharge Ordered: 06/23/2024[facility] Healthcare Work Phone: comment on above:Ordered: 06/23/2024SURESWAB(R) ADVANCED VAGINITIS PLUS, TMASURESWAB(R) ADVANCED VAGINITIS PLUS, TMA Pathology and Cytology Routine Vaginal discharge Ordered: 11/20/2024[facility] Healthcare Work Phone: comment on above:Ordered: 11/20/2024Thyrotropin [Units/volume] in Serum or PlasmaTSH Lab Routine Hypothyroidism (acquired) ([facility]) Ordered: 04/04/2024[facility] HealthcareComment on above:Ordered: 04/04/2024 Thyrotropin [Units/volume] in Serum or PlasmaTSH Lab Routine History of thyroid disease Ordered: 06/02/2024[facility] Work Phone: comnesa on above:Ordered: 06/02/2024Thyrotropin [Units/volume] in Serum or PlasmaTSH Lab Routine Thyroid disease ([facility]) Ordered: 10/02/2024[facility] HealthcareComment on above:Ordered: 10/02/2024 Thyrotropin [Units/volume] in Serum or PlasmaTSH Lab Routine Second trimester ([facility]) Thyroid disease Ordered: 12/11/2024[facility] Work Phone: comigdk on above:Ordered: 12/11/2024UA DIP, URINE (POC)UA DIP, URINE (POC) Lab Routine Infective urethritis Ordered: 08/01/2021 [facility] Work Phone: Comment on above:Ordered: 08/01/2021Vitamin D 1,25 dihydroxyVitamin D 1,25 dihydroxy Lab Routine Low vitamin D level Ordered: 04/04/2024[facility] HealthcareComment on above:Ordered: 04/04/2024 End: 97-94-8939Zyvyzgo D 25 hydroxyVitamin D 25 hydroxy Lab Routine Insulin controlled gestational diabetes mellitus (GDM) in second trimester 1 Occurrences starting 12/03/2024 until 12/03/2025[facility] Work Phone: comment on above:1 Occurrences starting 12/03/2024 until 12/03/2025[facility] Immunizations Immunization DateImmunizationNotesCare GlxcgmbcCeaxmrgy13-72-7238xfnozenro virus vaccine, unspecified formulationKristofer Calix MD Work Phone: [facility] HospitalZdgotr23-21-8255rvqpylr toxoid, reduced diphtheria toxoid, and acellular pertussis vaccine, adsorbedMa Sand Work Phone: [facility] HospitalNEGATED: Highlighted row has not occurred!16-48-9231jgawdhmeh virus vaccine, unspecified formulationScott PRAVEEN [phone]-RtoplKettering Memorial Hospital Primary CareNEGATED: Highlighted row has not occurred!66-88-1912amwffrygi virus vaccine, unspecified formulationPERNELL LONGORIA [phone]-XdijyKettering Memorial Hospital [facility] [place] Payers DatePayer CategoryPayerPolicy [id number] 2021Medicaid [place] [employer] [id number] 2020-Present [phone] [address] [place] [address] [id number] 2021Medicaid [id number] 2.16.840.1.962919.3.579.[id number] 2.16.840.1.308682.3.579.2.97785-96-5723Ustbpmt690422392 2.16.840.1.084795.3.579.2.51233-28-1446Xnanfja4782917 2.16.840.1.432476.3.579.2.22067-12-7781Xiyyffn9389313 2.16.840.1.336740.3.579.2.49885-95-7282Pahwwgw1061492 2.16840.1.275752.3.579.2.39004-37-9977Sanvdff6911770 2.16840.1.468106.3.579.2.64526-64-9975Perembh9467640 2.16.840.1.717058.3.579.2.12734-83-8578Jbckyaq0679355 2.16.840.1.463016.3.579.2.24400-68-9326Iijbfha7543093 2.16.840.1.920149.3.579.2.45117-29-9925Rphxvxu0176576 2.16.840.1.715413.3.579.2.21286-95-3486Smnpuul5630971 2.16.840.1.706150.3.579.2.62432-30-9078Xbfjesg8734086 2.16.840.1.273951.3.579.2.72901-06-2191Yjbpauo6895771 2.16840.1.671211.3.579.2.59639-95-2853Jwhqnad4647432 2.16840.1.873164.3.579.2.25617-80-2519Bvreveb4678860 2.16840.1.171332.3.579.2.39841-29-1142Ulrihox2210841 2.16840.1.889552.3.579.2.92626-62-2921Dbyvyxn8472501 2.16840.1.290213.3.579.2.33818-17-8001Byiyveb2202137 2.16840.1.869617.3.579.2.24415-27-7745Hlefzbq7120802 2.840.1.326016.3.579.2.41623-25-7459Fciugke4737554 2.840.1.730152.3.579.2.76965-60-2545Mvqshwz6486004 2.840.1.647507.3.579.2.87853-81-8231Wibzzxk6316432 2.840.1.910096.3.579.2.34893-57-9097Zgdyqgh4410804 2.840.1.386759.3.579.2.09674-65-2867Gmnyaao3673286 2.840.1.662691.3.579.2.18516-64-1079Oygykzo0994593 2.16840.1.634906.3.579.2.97255-54-4626Frljtjv6521305 2.16840.1.924960.3.579.2.19645-14-4704Fcyvgyq2128976 2.16840.1.949081.3.579.2.62485-70-9744Retrjmw8145379 2.16840.1.111581.3.579.2.60841-91-9253Ugwxsva43349505 2.16840.1.678273.3.579.2.05321-63-6829Yzivara66297346 2.16840.1.003414.3.579.2.52936-50-9338Doxjmwi92420605 2.16840.1.710958.3.579.2.01981-20-0256Omdwaan52575981 2.16840.1.712698.3.579.2.41496-28-3408Ttxbbiv71024561 2..1.804685.3.579.2.65871-53-7049Usnwbfk54602102 2..1.817839.3.579.2.09197-70-8676Dvuyine29783336 2.840.1.871708.3.579.2.58473-83-7632Vdwavxy61663908 2.0.1.345156.3.579.2.54843-32-9428Doppdaq93127158 2.0.1.711118.3.579.2.64042-48-4448Jbhntdk11658244 2..1.183797.3.579.2.15857-07-4613Dpbvxhv02199736 2.16840.1.875971.3.579.2.93215-69-4751Ldabpoa55551466 2.16840.1.590713.3.579.2.88053-22-2323Qhbheij48463766 2.16840.1.340586.3.579.2.94662-74-3139Dhqxaec29756083 2.16840.1.579606.3.579.2.20104-64-2800Ahhidxs71682089 2.16840.1.034424.3.579.2.58509-56-7998Hswiryc83133392 2.16840.1.617064.3.579.2.56547-38-3614Ehhrbmf79985411 2.16840.1.520925.3.579.2.55252-77-2706Gjuwmhn22874966 2.840.1.836634.3.579.2.11468-99-1471Uiufsas19186119 2.0.1.555226.3.579.2.22015-56-1034Mhiqwtk45777799 2.840.1.516271.3.579.2.68813-95-8312Ybzctbb21141915 2.0.1.972387.3.579.2.76689-15-0419Iwwmdnw59613382 2.840.1.518546.3.579.2.11901-03-8684Qznbbpg93366469 2.0.1.420256.3.579.2.85629-43-1820Chtncnh36973911 2.840.1.269368.3.579.2.00778-49-0239Mtagyjc09846536 2.0.1.820237.3.579.2.98699-55-5944Scwhklk19803488 2.840.1.513928.3.579.2.30719-90-4524Ghzhphi06205051 2.840.1.337422.3.579.2.47009-64-7779Mbqfqxz00225702 2.840.1.839664.3.579.2.94764-25-6848Venuysi49649311 2.16840.1.903898.3.579.2.59154-99-0845Wrodvic99634595 2.16840.1.590949.3.579.2.15852-95-9672Eectapa94356165 2.16840.1.481824.3.579.2.96017-40-4474Inxabrz60148972 2.16840.1.886434.3.579.2.37884-40-6170Dwtgmpu55010454 2.16840.1.247789.3.579.2.51034-95-9937Kmbqqhf47238285 2.0.1.607347.3.579.2.29973-59-2170Coocuca30983505 2.0.1.449447.3.579.2.11411-24-5157Qmhhywm50036952 2.840.1.852790.3.579.2.93751-35-8843Sayndwl78208584 2.840.1.531974.3.579.2.78045-16-0578Jeoobyc26431104 2.840.1.488030.3.579.2.74895-83-0662Ynybajn57498423 2.0.1.458790.3.579.2.63275-23-2711Yssrcni26635849 2.840.1.829458.3.579.2.44548-77-1602Sfqanxh07426010 2.840.1.667849.3.579.2.79811-15-0941Derzgdy58394029 2.16840.1.587886.3.579.2.01595-57-8265Tesphmb07465248 2.840.1.500916.3.579.2.56509-63-0867Foiyijz25895374 2.16840.1.853100.3.579.2.32727-40-3512Idwhrfc160140891 2.16840.1.031616.3.579.2.164940-32-7838Lovfyev855960066 2.16840.1.604595.3.579.2.604144-57-5603Tcpktns674058854 2.16840.1.142077.3.579.2.824589-16-4869Brorvzh06679665 2.840.1.176912.3.579.2.08521-02-4109Jxbcnsh65252630 2.840.1.148021.3.579.2.350129-30-4821Qvhcwsn49285318 2.840.1.932324.3.579.2.318755-40-8641Jctpvao04647211 2.840.1.634121.3.579.2.699902-96-6770Xvevakv97701056 2.840.1.321436.3.579.2.037000-03-2722Ztquusg09001919 2.840.1.242858.3.579.2.785360-88-7693Gttyiue44105463 2.840.1.479994.3.579.2.161936-86-5567Rsaugrs51866049 2.840.1.343748.3.579.2.864553-91-6910Hngmvia34672565 2.840.1.461391.3.579.2.334238-09-2909Xxuzzlj48993164 2.16840.1.136440.3.579.2.970316-35-1224Phvfihj56572503 2.16840.1.270844.3.579.2.834857-03-1159Tlsqmth8490054 2.16.840.1.016784.3.579.2.053936-82-4018Wtgtags4162457 2.16840.1.194858.3.579.2.070983-86-0995Cbprmmz3470687 2.16840.1.765197.3.579.2.529915-65-8448Hhsvuex0694433 2.16840.1.752485.3.579.2.104968-73-5138Lqdirui8828317 2.0.1.360470.3.57[id number] 2.840.1.190915.3.579.[id number] 2.840.1.962101.3.57[id number] 2.840.1.665553.3.57[id number] 2.840.1.801839.3.579.[id number] 2.840.1.086532.3.57[id number] 2.840.1.783416.3.579.[id number] 2.16840.1.931747.3.579.[id number] 2.16840.1.532582.3.579.[id number] 2.16840.1.350418.3.579.2.314826-61-8114Wjrp-[id number] [id number] 1.2.840.405614.1.13.239.2.7.3.553759.315Unknown [id number] 2.16.840.1.309955.3.579.2.593 Social History DateTypeDetailFacilityStart: 09-10-2017 End: 83-04-9473Sjoxzir smoking status NHISNever [facility] tobaccoMar[facility] Start: 09-10-2017 End: 51-07-7252Rqyqwnj use and exposureSmokeless tobacco non-userMercy Health St[facility] Hospitaltart: 08-01-2021 End: 50-68-8045Wlnbctz intakeCurrent non-drinker of alcohol (finding)[facility]: 36-95-2922Uri Assigned At BirthNot on fileMercy Health St. [facility] Hospitaltart: 07-22-2021 End: 68-43-0786Yrsbenxe to SARS-CoV-2 (event)Not sureMercy Health St. [facility] Hospitaltart: 05-28-2017 End: 24-12-0037Pmhwyhc smoking statusNeverUniversity [facility]als [facility] Start: 06-10-2020 End: 17-17-6279Ujx Assigned At BirthFemalMercy Health [facility] Start: 11-21-2021 End: 06-85-3773Grgwrgw intakeEx-drinker (finding)[facility] [employer] Work Phone: start: 63-87-6533Tnvvqmt SDOH Alcohol Comment occasionally[employer] Phone: start: 01-89-5794JdsthjtyTPM [employer]ics Phone: start: 06-10-2020 End: 49-98-1140Yllzuso of Social functionMercy Health St. [facility] Hospitaltart: 04-04-2024 End: 67-17-8841Eexngqcul beverage intakeLifetime non-drinker (finding)[facility] HealthcareTobacco smoking status PAISUnknown if ever smokedBarney Children'S [facility] Work Phone: Start: 11-27-2018 End: 48-40-8547BkjCttvmd (finding)[facility]: 29-95-0945Cpd Assigned At [facility] Medical Equipment Procedure CodeEquipment CodeEquipment Original TextEquipment IdentifierDates [id number]: 10-30-2024 End: each by In Vitro route Daily Use to check FSBS four times daily [id number]: 10-30-2024 End: 12-16-4468Jxt a new needle with each injection ( 1- 5 times per day) [id number]: 12-03-2024 Functional Status LmooUhtgnrhwcuDjgtfbTkukeqkb94-81-7060Nxsrohr Health Questionnaire 2 item (PHQ- 2) [Reported][facility] CenterQcdzwgppqh61-29-4462Wigbbxy Health Questionnaire 2 item (PHQ- 2) [Reported][facility] CenterAugwskpvfa92-06-2973Fncgevskwh StatusN/[facility] Primary Lomz30-20-9478Quzvwmkfwv StatusN/[facility] Family Medicine Iupho33-42-7018Zyxrodwezd StatusN/[facility] Primary Gewj17-98-8859Vyrsnghdgr StatusN/[facility] Primary Yprt01-95-2114Tamwqildel StatusN/[facility] [id number] StatusN/[facility] Primary [id number] Functional StatusN/[facility] Primary [id number] StatusN/[facility] Convenient [id number] Status N/[facility] Primary [id number] StatusN/[facility] Primary [id number] StatusN/[facility] Primary [id number] StatusN/[facility] Primary Care Clinical Notes 07-26-2019 to 03-11-2025 Note Date & [id number] History of Present illness Narrative* Charles Cortes [...] age) multigravida 35+ Antiphospholipid syndrome Hypothyroid Stroke ([facility]) Gestational diabetes mellitus (GDM) in [...] Anemia Antiphospholipid antibody syndrome Cerebral infarction, unspecified ([facility]) 05/16/2019 Hypothyroid Migraine without aura and without status migrainosus, not intractable 09/12/2017 Stroke ([facility]) 2015 REVIEW OF SYSTEMS: Head and Neck: [...] Visit via Real-time Synchronous Audiovisual Provider Location: [facility]- MEDICINE AT [address] [phone] Patient Location: Patient's home Patient Location Compensation Expert: None Video Visit Consent Statement: I discussed [...] that there are some limitations compared to skxg-th-lqrg evaluations. We elected to proceed. documented in this encounterUniversity Hospitals Cleveland Medical CenterSongfor University Of Michigan Health–WestFlqpro55-36-6879 NoteHNO ID: [id number] Author: KATHERINE NEGRETE APRN.SETTER UP Service: ? Author Type: Nurse Practitioner Type: Progress Notes Filed: 03/02/2025 20:18 Note Text: NAME: Sanna Rendon CLINIC NO.: [id number] DATE OF SERVICE: March 02, 2025 (Penelope) [...] later in 2018. These were found in [place], [place]. 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 and patient increased Lovenox to 40 mg [...] She has a h (more content not included)...[place] [id number] History of Present illness Narrative* Rosi Murray, HUMAN RESOURCES TRAINING MANAGER - 02/23/2025 9:00 AM EDT Reason for [...] Diagnosis Date Noted 32 weeks gestation of ([facility]) 11/28/2019 Abdominal pain 06/12/2023 Acute bronchitis due to infection 06/12/2023 Acute on chronic vesicular eczema of hands and feet 11/15/2023 Anemia complicating childbirth ([facility]) 01/16/2020 Anticoagulant long-term use 02/22/2020 Antiphospholipid antibody positive 09/10/2017 Antiphospholipid antibody syndrome ([facility]) 07/07/2019 Anxiety 06/12/2023 Blood pressure elevated without history of HTN 11/15/2023 BMI 37.0-37.9, adult 11/15/2023 Cerebral infarction, unspecified ([facility]) 05/16/2019 Cerebrovascular accident (CVA) due to stenosis of middle cerebral artery ([facility]) 02/22/2020 Cervicalgia 02/05/2019 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 ([facility]) 01/08/2020 Coagulation defect, unspecified ([facility]) 02/05/2019 Cold intolerance 11/15/2023 Deficiency of other specified B group vitamins 05/16/2019 Deviated septum 11/15/2023 Dizziness and giddiness 02/05/2019 Dry mouth 11/15/2023 Dysfunction of eustachian tube 06/12/2023 Dyspnea 06/12/2023 Elevated blood pressure reading 11/15/2023 Encounter for supervision of normal , unspecified, first trimester ([facility]) 05/29/2019 Environmental allergies 11/15/2023 Fatigue 12/29/2016 First degree perineal laceration during delivery ([facility]) 01/16/2020 Frequency of micturition 02/19/2019 Genitourinary symptoms 08/19/2021 Gestational diabetes mellitus (GDM), antepartum ([facility]) 01/26/2022 H/O: hypothyroidism 11/15/2023 Hematochezia 06/12/2023 [...] anemia 01/16/2020 Irregular uterine bleeding 11/15/2023 problem ([facility]) 06/12/2023 Less than 8 weeks gestation of ([facility]) 06/05/2019 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 02/05/2019 Migraine without aura and without status migrainosus, not intractable 09/12/2017 Morbid obesity ([facility]) 11/15/2023 Muscle fasciculation 08/19/2021 Nasal polyps 11/15/2023 Non-smoker 11/15/2023 NEETA (obstructive sleep apnea) 11/15/2023 Other acute postprocedural pain 02/03/2019 Other general symptoms and signs 10/28/2019 Other immediate hemorrhage ([facility]) 01/16/2020 Other specified noninflammatory disorders of vagina 02/21/2019 Pain in joint 12/29/2016 Palpitations 08/26/2019 Paresthesia of bilateral legs 11/15/2023 Pelvic and perineal pain 02/01/2019 Personal history of urinary (tract) infections 01/16/2020 Pre-diabetes 11/15/2023 Primary hypercoagulable state ([facility]) 08/01/2022 Pruritus, unspecified 01/02/2020 Psychogenic hyperventilation 06/12/2023 Raised antibody titer 09/25/2017 Right lower quadrant pain 11/15/2023 Right otitis externa 11/15/2023 Salivary gland swelling 11/15/2023 Single live ([facility]) 01/15/2020 Snoring 11/15/2023 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) 12/30/2019 Suspected severe acute respiratory syndrome coronavirus 2 (SARS-CoV-2) infection 06/12/2023 SVT (supraventricular tachycardia) ([facility]) 08/26/2019 Syncope and collapse 06/03/2018 Other bacterial infections of unspecified site 06/27/2019 Thrombocytopenia, unspecified 11/20/2019 Hypoglycemia 06/12/2023 Unspecified condition associated with female genital organs and menstrual cycle 05/09/2019 Unspecified ovarian cyst, right side 02/06/2019 Urinary tract infection 10/16/2019 Referred otalgia of right ear 11/19/2023 LPRD (laryngopharyngeal reflux disease) 11/19/2023 H/O loss 01/05/2025 Multigravida of advanced maternal age in second trimester ([facility]) 01/05/2025 Thyroid disease 01/05/2025 Resolved Ambulatory Problems Diagnosis Date Noted No Resolved Ambulatory Problems Past Medical History: Diagnosis Date AMA (advanced maternal age) multigravida 35+ ([facility]) Anemia Antiphospholipid syndrome ([facility]) Gestational diabetes [...] drainage of cyst WISDOM TOOTH EXTRACTION 2007 [place] teeth REVIEW OF SYSTEMS Review of Systems: [...] nursing note reviewed. Exam conducted with a possum trapper present. Vitals: Estimated body mass index is 33.98 kg/m as calculated from the following: Height as of 11/19/23: 5' 6 . Weight as of this encounter: 210 lb 8 oz. BP: 116/72 Patient's last menstrual period was 07/28/2024. Assessment/Plan ICD-10-CM 1. Third trimester ([facility]) Z34.93 2. 30 weeks gestation of ([facility]) Z3A.30 POCT urinalysis dipstick manually [...] of: Wilton Herrmann DO documented in this encounterParkland Health CenterBwrcnksyyp33-16-1916 History of Present illness Narrative* Sam Callahan MD MPH - 02/16/2025 1:45 PM EDT Images from the original note were not included. ADULT RHEUMATOLOGY CLINIC NOTE [id number] [phone] Patient Name: Sanna Rendon Subjective Reason for [...] following with two outside specialists (Neurology at [facility] and Hematology at [facility]) for management of her APS. The [...] health issues unclear exact diagnoses Note from [facility] Provider (Dr. Noyola): Recent note from [...] age) multigravida 35+ Antiphospholipid syndrome Hypothyroid Stroke ([facility]) Gestational diabetes mellitus (GDM) in second trimester [...] Anemia Antiphospholipid antibody syndrome Cerebral infarction, unspecified ([facility]) 05/16/2019 Hypothyroid Migraine without aura and without status migrainosus, not intractable 09/12/2017 Stroke ([facility]) 2016 reviewed. Social History Social History Narrative [...] weeks . She is currently following with [facility] for her , neurology through the [employer] system, and hematology through [facility]. Based on extensive review of her [...] Expiration Date: 02/16/2026 Release to patient via [employer]?: Immediate [1] Complement profile (C3 AND C4) Standing Status: Future Expiration Date: 02/16/2026 Release to patient via [employer]?: Immediate [1] DNA double-stranded (dsDNA) Abs by Rene angel IFA Standing Status: Future Expiration Date: 02/16/2026 Release to patient via [employer]?: Immediate [1] KELLEN Panel Standing Status: Future Expiration Date: 02/16/2026 Release to patient via [employer]?: Immediate [1] Treatment Plan: -if the patient [...] visit is OK Sam Callahan MD, MPH [facility] [address] [place] [address] Total xtbn-dc-cevs time was 55 minutes with more than [...] for your understanding. documented in this encounterOhioHealth Grady Memorial Hospital10-14-2025 Miscellaneous Notes* Telephone Encounter - [...] in blood sugars weekly. documented in this encounterSt. Albans HospitalClean Plates10-14-2025 Telephone encounter Note* Telephone Encounter - PRISCILLA [...] Continue to send in blood sugars weekly. Mr. Youth Work Phone: [phone] 602-110510-13-2025 History of Present illness Narrative* Rosi Murray [...] Diagnosis Date Noted 32 weeks gestation of ([facility]) 11/28/2019 Abdominal pain 06/12/2023 Acute bronchitis due to infection 06/12/2023 Acute on chronic vesicular eczema of hands and feet 11/15/2023 Anemia complicating childbirth ([facility]) 01/16/2020 Anticoagulant long-term use 02/22/2020 Antiphospholipid antibody positive 09/10/2017 Antiphospholipid antibody syndrome ([facility]) 07/07/2019 Anxiety 06/12/2023 Blood pressure elevated without history of HTN 11/15/2023 BMI 37.0-37.9, adult 11/15/2023 Cerebral infarction, unspecified ([facility]) 05/16/2019 Cerebrovascular accident (CVA) due to stenosis of middle cerebral artery ([facility]) 02/22/2020 Cervicalgia 02/05/2019 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 ([facility]) 01/08/2020 Coagulation defect, unspecified ([facility]) 02/05/2019 Cold intolerance 11/15/2023 Deficiency of other specified B group vitamins 05/16/2019 Deviated septum 11/15/2023 Dizziness and giddiness 02/05/2019 Dry mouth 11/15/2023 Dysfunction of eustachian tube 06/12/2023 Dyspnea 06/12/2023 Elevated blood pressure reading 11/15/2023 Encounter for supervision of normal , unspecified, first trimester ([facility]) 05/29/2019 Environmental allergies 11/15/2023 Fatigue 12/29/2016 First degree perineal laceration during delivery ([facility]) 01/16/2020 Frequency of micturition 02/19/2019 Genitourinary symptoms 08/19/2021 Gestational diabetes mellitus (GDM), antepartum ([facility]) 01/26/2022 H/O: hypothyroidism 11/15/2023 Hematochezia 06/12/2023 [...] anemia 01/16/2020 Irregular uterine bleeding 11/15/2023 problem ([facility]) 06/12/2023 Less than 8 weeks gestation of ([facility]) 06/05/2019 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 02/05/2019 Migraine without aura and without status migrainosus, not intractable 09/12/2017 Morbid obesity ([facility]) 11/15/2023 Muscle fasciculation 08/19/2021 Nasal polyps 11/15/2023 Non-smoker 11/15/2023 NEETA (obstructive sleep apnea) 11/15/2023 Other acute postprocedural pain 02/03/2019 Other general symptoms and signs 10/28/2019 Other immediate hemorrhage ([facility]) 01/16/2020 Other specified noninflammatory disorders of vagina 02/21/2019 Pain in joint 12/29/2016 Palpitations 08/26/2019 Paresthesia of bilateral legs 11/15/2023 Pelvic and perineal pain 02/01/2019 Personal history of urinary (tract) infections 01/16/2020 Pre-diabetes 11/15/2023 Primary hypercoagulable state ([facility]) 08/01/2022 Pruritus, unspecified 01/02/2020 Psychogenic hyperventilation 06/12/2023 Raised antibody titer 09/25/2017 Right lower quadrant pain 11/15/2023 Right otitis externa 11/15/2023 Salivary gland swelling 11/15/2023 Single live ([facility]) 01/15/2020 Snoring 11/15/2023 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) 12/30/2019 Suspected severe acute respiratory syndrome coronavirus 2 (SARS-CoV-2) infection 06/12/2023 SVT (supraventricular tachycardia) ([facility]) 08/26/2019 Syncope and collapse 06/03/2018 Other bacterial infections of unspecified site 06/27/2019 Thrombocytopenia, unspecified 11/20/2019 Hypoglycemia 06/12/2023 Unspecified condition associated with female genital organs and menstrual cycle 05/09/2019 Unspecified ovarian cyst, right side 02/06/2019 Urinary tract infection 10/16/2019 Referred otalgia of right ear 11/19/2023 LPRD (laryngopharyngeal reflux disease) 11/19/2023 H/O loss 01/05/2025 Multigravida of advanced maternal age in second trimester ([facility]) 01/05/2025 Thyroid disease 01/05/2025 Resolved Ambulatory Problems Diagnosis Date Noted No Resolved Ambulatory Problems Past Medical History: Diagnosis Date AMA (advanced maternal age) multigravida 35+ ([facility]) Anemia Antiphospholipid syndrome ([facility]) Gestational diabetes ([facility]) Heartburn Hypothyroid Stroke ([facility]) HISTORY PAST MEDICAL HISTORY SOCIAL HISTORY Past Medical History: Diagnosis Date AMA (advanced maternal age) multigravida 35+ ([facility]) Anemia Antiphospholipid syndrome ([facility]) Gestational diabetes ([facility]) Heartburn Hypothyroid Stroke ([facility]) Social [...] drainage of cyst WISDOM TOOTH EXTRACTION 2007 [place] teeth REVIEW OF SYSTEMS Review of Systems: [...] nursing note reviewed. Exam conducted with a possum trapper present. Vitals: Estimated body mass index is 34.12 kg/m as calculated from the following: Height as of 11/19/23: 5' 6 . Weight as of this encounter: 211 lb 6.4 oz. BP: 124/76 Patient's last menstrual period was 07/28/2024. ASSESSMENT & PLAN ICD-10-CM 1. Third trimester ([facility]) Z34.93 2. 28 weeks gestation of ([facility]) Z3A.28 CBC and differential POCT urinalysis [...] givenorders and they were also faxed to [facility] and [facility] Scheduling. Patient to return to clinic in 2 weeks for routine OB appointment. Documented by Rosi Murray LPN on behalf of: Wilton Herrmann DO documented in this encounterParkland Health CenterRmbxrelvbu38-96-0733 History of Present illness Narrative* Mukul Noyola MD - 02/06/2025 2:00 PM EDT Images from the original note were not included. Video Visit via Real-time Synchronous Audiovisual Provider Location: [facility]- MEDICINE AT [address] [phone] Patient Location: Other Home Patient Location Compensation Expert: None Video Visit Consent Statement: I discussed [...] that there are some limitations compared to hakz-er-wyem evaluations. We elected to proceed. [facility] Maternal- Medicine Office Note Reason [...] will be undergoing genetic testing through the paid search analyst. There is family history of hypospadias and [...] Anemia Antiphospholipid antibody syndrome Cerebral infarction, unspecified ([facility]) 05/16/2019 Hypothyroid Migraine without aura and without status migrainosus, not intractable 09/12/2017 Stroke ([facility]) 2016 PSHIST: Past Surgical History: Procedure Laterality [...] to continue to send blood glucoses to [facility] to review - continue Lovenox 40 [...] MD, FACOG (she/hers) Maternal- Medicine [facility] [address] [place] [address] This document was created with [employer] technology. Though I make every effort to review the dictation as it is transcribed, on occasion the spoken word can be misinterpreted by the technology leading to inappropriate words, phrases, or sentences. This note is addressed to the requesting provider as a consultation for clinical guidance. Specificmedical abbreviations are occasionally used and those are generally approved by the [place]?Board of?Obstetrics and?Gynecology?as well as?Elizabeth s abbreviations. The above plan of care was based solely on the diagnoses for which a consultation was requested. ?More frequent testing may be indicated based on her other medical/obstetrical conditions. The management of other or medical conditions is beyond the scope of requested consultation and will c ontinue to be followed by the primary water conservationist or primary care provider. Note to patient: [...] opinion of the practitioner. documented in this encounterUniversity Hospitals Cleveland Medical CenterSongfor University Of Michigan Health–WestVhhdgv07-27-4669 NoteEchocardiology Procedure Exam Date/Time Accession # Ordering Dr. Echo Transthoracic 02/03/2025 10:00 EDT [id number] Wilton HERRMANN DO Complete CPT code [id number] Reason for Exam (Echo Transthoracic Complete) Dizziness and giddiness E07.9, O09.522 R42 Report [facility] [address] [place] [address] Adult Echocardiogram Report Name: SANNA RENDON Study Date: 02/03/2025 08:09 AM BP: 116/76 mmHg Patient Location: FT CAR F HR: 84 : 1985 Gender: Female Height: 66 in Age: 39 yrs Ethnicity: [facility] Weight: 205 lb Reason For Study: [...] Merrick Watkins MD Transcribed by: [facility] Technologist: [facility]09-22-2025 History of Present illness Narrative* Celia [...] Diagnosis Date Noted 32 weeks gestation of ([facility]) 11/28/2019 Abdominal pain 06/12/2023 Acute bronchitis due to infection 06/12/2023 Acute on chronic vesicular eczema of hands and feet 11/15/2023 Anemia complicating childbirth ([facility]) 01/16/2020 Anticoagulant long-term use 02/22/2020 Antiphospholipid antibody positive 09/10/2017 Antiphospholipid antibody syndrome ([facility]) 07/07/2019 Anxiety 06/12/2023 Blood pressure elevated without history of HTN 11/15/2023 BMI 37.0-37.9, adult 11/15/2023 Cerebral infarction, unspecified ([facility]) 05/16/2019 Cerebrovascular accident (CVA) due to stenosis of middle cerebral artery ([facility]) 02/22/2020 Cervicalgia 02/05/2019 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 ([facility]) 01/08/2020 Coagulation defect, unspecified ([facility]) 02/05/2019 Cold intolerance 11/15/2023 Deficiency of other specified B group vitamins 05/16/2019 Deviated septum 11/15/2023 Dizziness and giddiness 02/05/2019 Dry mouth 11/15/2023 Dysfunction of eustachian tube 06/12/2023 Dyspnea 06/12/2023 Elevated blood pressure reading 11/15/2023 Encounter for supervision of normal , unspecified, first trimester ([facility]) 05/29/2019 Environmental allergies 11/15/2023 Fatigue 12/29/2016 First degree perineal laceration during delivery ([facility]) 01/16/2020 Frequency of micturition 02/19/2019 Genitourinary symptoms 08/19/2021 Gestational diabetes mellitus (GDM), antepartum ([facility]) 01/26/2022 H/O: hypothyroidism 11/15/2023 Hematochezia 06/12/2023 [...] anemia 01/16/2020 Irregular uterine bleeding 11/15/2023 problem ([facility]) 06/12/2023 Less than 8 weeks gestation of ([facility]) 06/05/2019 penitentiary (current) use of antithrombotics/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 02/05/2019 Migraine without aura and without status migrainosus, not intractable 09/12/2017 Morbid obesity ([facility]) 11/15/2023 Muscle fasciculation 08/19/2021 Nasal polyps 11/15/2023 Non-smoker 11/15/2023 NEETA (obstructive sleep apnea) 11/15/2023 Other acute postprocedural pain 02/03/2019 Other general symptoms and signs 10/28/2019 Other immediate hemorrhage ([facility]) 01/16/2020 Other specified noninflammatory disorders of vagina 02/21/2019 Pain in joint 12/29/2016 Palpitations 08/26/2019 Paresthesia of bilateral legs 11/15/2023 Pelvic and perineal pain 02/01/2019 Personal history of urinary (tract) infections 01/16/2020 Pre-diabetes 11/15/2023 Primary hypercoagulable state ([facility]) 08/01/2022 Pruritus, unspecified 01/02/2020 Psychogenic hyperventilation 06/12/2023 Raised antibody titer 09/25/2017 Right lower quadrant pain 11/15/2023 Right otitis externa 11/15/2023 Salivary gland swelling 11/15/2023 Single live ([facility]) 01/15/2020 Snoring 11/15/2023 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) 12/30/2019 Suspected severe acute respiratory syndrome coronavirus 2 (SARS-CoV-2) infection 06/12/2023 SVT (supraventricular tachycardia) ([facility]) 08/26/2019 Syncope and collapse 06/03/2018 [...] drainage of cyst WISDOM TOOTH EXTRACTION 2007 [place] teeth REVIEW OF SYSTEMS Review of Systems: [...] nursing note reviewed. Exam conducted with a possum trapper present. Vitals: Estimated body mass index is 34.14 kg/m as calculated from the following: Height as of 11/19/23: 5' 6 . Weight as of this encounter: 211 lb 8 oz. BP: 124/70 Patient's last menstrual period was 07/28/2024. ASSESSMENT & PLAN ICD-10-CM 1. Second trimester ([facility]) Z34.92 POCT urinalysis dipstick manually resulted 2. 25 weeks gestation of ([facility]) Z3A.25 3. Gestational diabetes mellitus (GDM), antepartum, gestational diabetes method of control unspecified ([facility]) O24.419 metFORMIN XR (Glucophage-XR) 500 MG [...] to switch her Lovenox and Metformin to [facility] pharmacy. Growth ultrasound at28 weeks as well as NST and BPP at 28 weeks. Documented by Celia Keith NP on behalf of: Wilton Herrmann DO documented in this encounterParkland Health CenterFtgyfnhtss10-90-7017 History of Present illness Narrative* Roxana Mays PA-C - 01/13/2025 10:00 AM EDT Maternal- Medicine Consultation VIDEO Patient is present at home , provider present at [facility] HISTORY OF PRESENT ILLNESS: Sanna [...] more likely to fail compared to insulin. bench press operator data on children whose mothers took [...] by e-mail to: or by fax to: [phone] Roxana Mays PA-C Maternal- Medicine Office phone: [phone] Roxana Mays PA-C 01/13/25 1031 documented in this encounterUniversity Hospitals Cleveland Medical CenterSongfor [facility] Fxvrrp28-97-0285 Miscellaneous Notes* Medical Student - Mike Aquino [...] legal medical record. documented in this encounterOhioHealth [facility]ady [facility]09-16-2025 Progress note* Medical Student - [...] part of the legal medical record. [facility]09-12-2025 Miscellaneous Notes* Telephone Encounter - [...] MUKUL NOYOLA MD documented in this encounterOhioHealth Grady Memorial Hospital09-12-2025 Telephone encounter Note* Telephone Encounter [...] in. All questions and concerns answered. MUKUL NOYLOA MD [facility] [id number] Miscellaneous Notes* Telephone Encounter - Jacque Pat RN - 01/07/2025 10:29 AM EDT Route Contractor called and spoke to patient yesterday to discuss a several topics. Route Contractor asked if patient wanted another follow up cervical length. Patient declined. We also discussed her insulin dosage. Patient had not started her NPH insulin yet because her pharmacy did not notify her it was ready for pickup. She asked if she could start at 4 units instead of 8. She is worried because she had a bad reaction when she took Lantus previously. Route Contractor discussed this with Dr. Noyola and she is okay with her starting at a lower dose for now. Lastly, technical writer and editor notified patient that Dr. Noyola wanted to discuss with her shipping assistant her Lovenox dosing. Patient stated there was some confusion if she should be on 40mg or 80mg, patient prefers to be on the lower dose. Patient is seeing a Dr. Calix from the [facility] hematology office in [place]. Notified patient that we will reach out to her shipping assistant to discuss her dosing. documented in this encounterUniversity Hospitals Cleveland Medical CenterClearwire09-10-2025 Telephone encounter Note* Telephone Encounter - Jacque Pat RN - 01/07/2025 10:29 AM EDT Route Contractor called and spoke to patient yesterday to discuss a several topics. Route Contractor asked if patient wanted another follow up cervical length. Patient declined. We also discussed her insulin dosage. Patient had not started her NPH insulin yet because her pharmacy did not notify her it was ready for pickup. She asked if she could start at 4 units instead of 8. She is worried because she had a bad reaction when she took Lantus previously. Route Contractor discussed this with Dr. Noyola and she is okay with her starting at a lower dose for now. Lastly, technical writer and editor notified patient that Dr. Noyola wanted to discuss with her shipping assistant her Lovenox dosing. Patient stated there was some confusion if she should be on 40mg or 80mg, patient prefers to be on the lower dose. Patient is seeing a Dr. Calix from the [facility] hematology office in [place]. Notified patient that we will reach out to her shipping assistant to discuss her dosing. Mr. Youth09-08-2025 History of Present illness Narrative* Rosi Murray [...] Diagnosis Date Noted 32 weeks gestation of ([facility]) 11/28/2019 Abdominal pain 06/12/2023 Acute bronchitis due to infection 06/12/2023 Acute on chronic vesicular eczema of hands and feet 11/15/2023 Anemia complicating childbirth ([facility]) 01/16/2020 Anticoagulant long-term use 02/22/2020 Antiphospholipid antibody positive 09/10/2017 Antiphospholipid antibody syndrome ([facility]) 07/07/2019 Anxiety 06/12/2023 Blood pressure elevated without history of HTN 11/15/2023 BMI 37.0-37.9, adult 11/15/2023 Cerebral infarction, unspecified ([facility]) 05/16/2019 Cerebrovascular accident (CVA) due to stenosis of middle cerebral artery ([facility]) 02/22/2020 Cervicalgia 02/05/2019 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 ([facility]) 01/08/2020 Coagulation defect, unspecified ([facility]) 02/05/2019 Cold intolerance 11/15/2023 Deficiency of other specified B group vitamins 05/16/2019 Deviated septum 11/15/2023 Dizziness and giddiness 02/05/2019 Dry mouth 11/15/2023 Dysfunction of eustachian tube 06/12/2023 Dyspnea 06/12/2023 Elevated blood pressure reading 11/15/2023 Encounter for supervision of normal , unspecified, first trimester ([facility]) 05/29/2019 Environmental allergies 11/15/2023 Fatigue 12/29/2016 First degree perineal laceration during delivery ([facility]) 01/16/2020 Frequency of micturition 02/19/2019 Genitourinary symptoms 08/19/2021 Gestational diabetes mellitus (GDM), antepartum ([facility]) 01/26/2022 H/O: hypothyroidism 11/15/2023 Hematochezia 06/12/2023 [...] anemia 01/16/2020 Irregular uterine bleeding 11/15/2023 problem ([facility]) 06/12/2023 Less than 8 weeks gestation of ([facility]) 06/05/2019 penitentiary (current) use of antithrombotics/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 02/05/2019 Migraine without aura and without status migrainosus, not intractable 09/12/2017 Morbid obesity ([facility]) 11/15/2023 Muscle fasciculation 08/19/2021 Nasal polyps 11/15/2023 Non-smoker 11/15/2023 NEETA (obstructive sleep apnea) 11/15/2023 Other acute postprocedural pain 02/03/2019 Other general symptoms and signs 10/28/2019 Other immediate hemorrhage ([facility]) 01/16/2020 Other specified noninflammatory disorders of vagina 02/21/2019 Pain in joint 12/29/2016 Palpitations 08/26/2019 Paresthesia of bilateral legs 11/15/2023 Pelvic and perineal pain 02/01/2019 Personal history of urinary (tract) infections 01/16/2020 Pre-diabetes 11/15/2023 Primary hypercoagulable state ([facility]) 08/01/2022 Pruritus, unspecified 01/02/2020 Psychogenic hyperventilation 06/12/2023 Raised antibody titer 09/25/2017 Right lower quadrant pain 11/15/2023 Right otitis externa 11/15/2023 Salivary gland swelling 11/15/2023 Single live ([facility]) 01/15/2020 Snoring 11/15/2023 Speech and language [...] drainage of cyst WISDOM TOOTH EXTRACTION 2007 [place] teeth REVIEW OF SYSTEMS Review of Systems: [...] nursing note reviewed. Exam conducted with a possum trapper present. Vitals: Estimated body mass index is 33.73 kg/m as calculated from the following: Height as of 11/19/23: 5' 6 . Weight as of this encounter: 209 lb. BP: 122/74 Patient's last menstrual period was 07/28/2024. ASSESSMENT & PLAN ICD-10-CM 1. Second trimester ([facility]) Z34.92 POCT urinalysis dipstick manually resulted 2. 23 weeks gestation of ([facility]) Z3A.23 3. Thyroid disease E07.9 Echocardiogram 2D complete ECG 12 lead unit performed Echocardiogram 2D complete 4. Gestational diabetes mellitus (GDM), antepartum, gestational diabetes method of control unspecified ([facility]) O24.419 Echocardiogram 2D complete ECG 12 lead unit performed Echocardiogram 2D complete 5. Multigravida of advanced maternal age in second trimester ([facility]) O09.522 Echocardiogram 2D complete ECG 12 [...] of: Wilton Herrmann DO documented in this encounterParkland Health [id number] History of Present illness Narrative* Jacque Pat RN - 01/05/2025 10:20 AM EDT NPH insulin prior authorization approved. Confirmed via telephone call with automated voice messaging system. Prior authorization number [id number] documented in this encounterOhioHealth Grady Memorial Hospital09-04-2025 History of Present illness Narrative* Mukul Noyola MD - 01/01/2025 2:30 PM EDT Images from the original note were not included. Video Visit via Real-time Synchronous Audiovisual Provider Location: [facility]- MEDICINE AT [address] [address] Patient Location: Other [facility] Patient Location Compensation Expert: None Video Visit Consent Statement: I discussed [...] that there are some limitations compared to [id number] evaluations. We elected to proceed. [facility] Maternal- Medicine Consult Note Reason [...] will be undergoing genetic testing through the paid search analyst. There is family history of hypospadias and [...] Anemia Antiphospholipid antibody syndrome Cerebral infarction, unspecified ([facility]) 05/16/2019 Hypothyroid Migraine without aura and without status migrainosus, not intractable 09/12/2017 Stroke ([facility]) 2015 PSHIST: Past Surgical History: Procedure Laterality [...] contrast; Future - [facility] - [place], [place]; Future 2. Antiphospholipid syndrome complicating , antepartum - Echo complete W/O contrast; Future - [facility] [place], [place]; Future 3. History of stroke 4. [...] intermittent symptoms concerning for an autoimmune condition [id number]. I recommended she sees a tool design engineer. Referral given. I asked her to [...] supposed to undergo genetic testing with her paid search analyst. After the patient left I found that [...] asymptomatic I recommend that she sees a pipe chipper and she desires referral locally. Recommendations: - increase metformin to 1500 mg at night - she is willing to try the NPH 8 units at night - to continue to send blood glucoses to [facility] to review - follow-up survey and [...] MD, FACOG (she/hers) Maternal- Medicine [facility] [address] [place] [address] This document was created with [employer] technology. Though I make every effort to review the dictation as it is transcribed, on occasion the spoken word can be misinterpreted by the technology leading to inappropriate words, phrases, or sentences. This note is addressed to the requesting provider as a consultation for clinical guidance. Specificmedical abbreviations are occasionally used and those are generally approved by the [place]?Board of?Obstetrics and?Gynecology?as well as?Elizabeth s abbreviations. The above plan of care was based solely on the diagnoses for which a consultation was requested. ?More frequent testing may be indicated based on her other medical/obstetrical conditions. The management of other or medical conditions is beyond the scope of requested consultation and will c taniaue to be followed by the primary water conservationist or primary care provider. Note to patient: [...] male Have you been seen here at [facility] in a previous ? yes Recent ER visits or hospitalizations? Seen in L&D for cramping about 2 weeks ago Bring blood sugar log or meter with you today? (Please bring them with you for every visit at [facility]) scanned to media tab Flu vaccine (Feb-June)? no Any concerns that you would like me to mention to the provider today? No concerns documented in this encounterUniversity Hospitals Cleveland Medical CenterSteeplechase Networks [id number] Miscellaneous Notes* Telephone Encounter - PRISCILLA Del [...] and basics of CGM explained. Will send [place] message with instructions on how to connect to our [facility] account. Explained how to prudence notes on the Jenifer kennedy for fasting BG and meals. documented in this encounterUniversity Hospitals Cleveland Medical CenterSongfor University Of Michigan Health–[id number] Telephone encounter Note* Telephone Encounter - PRISCILLA [...] and basics of CGM explained. Will send [place] message with instructions on how to connect to our [facility] account. Explained how to prudence notes on the Jenifer kennedy for fasting BG and meals. Mr. Youth08-26-2025 NoteHNO ID: [id number] Author: KATHERINE NEGRETE APRN.SETTER UP Service: ? Author Type: Nurse Practitioner Type: Progress Notes Filed: 12/24/2024 21:07 Note Text: NAME: Sanna Rendon CLINIC NO.: [id number] DATE OF SERVICE: December 23, 2024 ([facility]) [...] later in 2018. These were found in [place], [place]. I don't have access to these [...] g/dL, and platelets a (more content not included)...[facility]08-26-2025 History of Present illness Narrative* Katherine Negrete APRN.SETTER UP - 12/23/2024 11:50 AM EDT Images from the original note were not included. NAME: Sanna Rendon CLINIC NO.: [id number] DATE OF SERVICE: December 23, 2024 ([place]) [...] later in 2018. These were found in [place], [place]. I don't have access to these [...] Monge soon. When she hada stroke in [place], she had symptoms up to a month before: uncontrollable headache, BP was elevated, knee stiffness, and blurry vision. Right facial drooping and [facility] to [facility]. Updated [...] and stayed on Lovenox Hgb 13.1 @ [facility] Recommended ER if persisting [...] and at age 69. Both lived in [place], [place] - but she was adopted. She was not able to see ID in October and will be seeing Dr. Baugh next week. Also will have her see Dr. Hamlin for her clotting disorder and make any other recommendations to optimize her treatment. Updated Visit, October 08, 2020: Telephone only Received call from pt stating she was seen in [facility] ER for numbness in her chest, throat, and extremities, and sob which has been worsening over the last week. We arranged a telephone visit for her toreview questions with me. Sanna Rendon is a 34 year old female seen for Hypercoagulable state and recent concerns and symptoms that required her to be seen at [facility] ER. She went to the ER with Gradual worsening of breathing after progressive tingling of fingers and legs. She currently remains very fatigued even though she is sleeping well. Now recalls that before her stroke she remembers having a bull's eye rash and was seen with severe headaches in [place], [place] - was found to have a [...] a root canal and was sent to [facility] for MRI which was [...] history goes back to January 2016 in [facility] where she had persisting headaches and slurred speech followed by lower extremity weakness. This took a few months to resolve and she is back to her normal state of being but some point in time during her her next she was seen by Dr. Humera Hyde in [place] as well and was found to have [...] which included preparing to see the patient, [id number] patient care, completing clinical documentation, obtaining and/or reviewing separately obtained history, performing a medically appropriate examination, counseling and educating the pat ient/family/caregiver, ordering medications, tests, or procedures, independently interpreting results (not separately reported), and communicating results to the patient/family/caregiver. Katherine Negrete APRN.CNP Hematology and Oncology Services Provided at: [place], [place] CC: MD Wilton Day, [address] [place] [address] Humaira Gaviria MD [address] [place] [id number] MD Cosmo Kingston MD Michael Blank, MD documented in this encounterMarion Hospital08-20-2025 History of Present illness Narrative* Alisa Saba APRN-SETTER UP - 12/17/2024 3:30 PM EDT REASON FOR OFFICE VISIT: Video Visit via Real-time Synchronous Audiovisual Provider Location: [facility]- MEDICINE AT [address] [address] Patient Location: Patient's home Video Visit Consent [...] that there are some limitations compared to oulo-nt-fctk evaluations. The patient consented to the presence [...] TSH 1.25 10/28/2024 No results found for: [id number] No results found for: CREATININE , BUN [...] by e-mail to: or by fax to: [phone] TIME OF CONSULTATION: 45 minutes with the patient, >50% in discussion and counseling, coordination of care which was [id number], review of records and communication back to referring provider. BRENNEN Guillen 12/17/24 1619 documented in this encounterOhioHealth Grady Memorial Hospital08-15-2025 Miscellaneous Notes* Telephone Encounter - [...] Sanna verbalized understanding. documented in this encounterOhioHealth Grady Memorial Hospital08-15-2025 Telephone encounter Note* Telephone Encounter [...] Alisa Saba APRN 12/17/2024. Sanna verbalized understanding. [facility] [employer] Work Phone: [phone]) 908-896908-15-2025 Miscellaneous Notes* Telephone Encounter - PRISCILLA Sutherland [...] tried higher fiber snacks in the evening. Route Contractor told her that I would relay her concerns to [facility] physician and get back to her. Obtained blood sugars for this week and will scan them into her chart. documented in this encounterOhioHealth Grady Memorial Hospital08-15-2025 Telephone encounter Note* Telephone Encounter [...] tried higher fiber snacks in the evening. Route Contractor told her that I would relay her concerns to [facility] physician and get back to her. Obtained blood sugars for this week and will scan them into her chart. Mr. Youth Work Phone: 1(443) 194-256308-14-2025 History of Present illness Narrative* Rosi Murray, [...] Diagnosis Date Noted 32 weeks gestation of ([facility]) 11/28/2019 Abdominal pain 06/12/2023 Acute bronchitis due to infection 06/12/2023 Acute on chronic vesicular eczema of hands and feet 11/15/2023 Anemia complicating childbirth ([facility]) 01/16/2020 Anticoagulant long-term use 02/22/2020 Antiphospholipid antibody positive 09/10/2017 Antiphospholipid antibody syndrome ([facility]) 07/07/2019 Anxiety 06/12/2023 Blood pressure elevated without history of HTN 11/15/2023 BMI 37.0-37.9, adult 11/15/2023 Cerebral infarction, unspecified ([facility]) 05/16/2019 Cerebrovascular accident (CVA) due to stenosis of middle cerebral artery ([facility]) 02/22/2020 Cervicalgia 02/05/2019 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 ([facility]) 01/08/2020 Coagulation defect, unspecified ([facility]) 02/05/2019 Cold intolerance 11/15/2023 Deficiency of other specified B group vitamins 05/16/2019 Deviated septum 11/15/2023 Dizziness and giddiness 02/05/2019 Dry mouth 11/15/2023 Dysfunction of eustachian tube 06/12/2023 Dyspnea 06/12/2023 Elevated blood pressure reading 11/15/2023 Encounter for supervision of normal , unspecified, first trimester ([facility]) 05/29/2019 Environmental allergies 11/15/2023 Fatigue 12/29/2016 First degree perineal laceration during delivery ([facility]) 01/16/2020 Frequency of micturition 02/19/2019 Genitourinary symptoms 08/19/2021 Gestational diabetes mellitus (GDM) affecting ([facility]) 01/26/2022 H/O: hypothyroidism 11/15/2023 Hematochezia 06/12/2023 [...] anemia 01/16/2020 Irregular uterine bleeding 11/15/2023 problem ([facility]) 06/12/2023 Less than 8 weeks gestation of ([facility]) 06/05/2019 penitentiary (current) use of antithrombotics/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 02/05/2019 Migraine without aura and without status migrainosus, not intractable 09/12/2017 Morbid obesity ([facility]) 11/15/2023 Muscle fasciculation 08/19/2021 Nasal polyps 11/15/2023 Non-smoker 11/15/2023 NEETA (obstructive sleep apnea) 11/15/2023 Other acute postprocedural pain 02/03/2019 Other general symptoms and signs 10/28/2019 Other immediate hemorrhage ([facility]) 01/16/2020 Other specified noninflammatory disorders of vagina 02/21/2019 Pain in joint 12/29/2016 Palpitations 08/26/2019 Paresthesia of bilateral legs 11/15/2023 Pelvic and perineal pain 02/01/2019 Personal history of urinary (tract) infections 01/16/2020 Pre-diabetes 11/15/2023 Primary hypercoagulable state ([facility]) 08/01/2022 Pruritus, unspecified 01/02/2020 Psychogenic hyperventilation 06/12/2023 Raised antibody titer 09/25/2017 Right lower quadrant pain 11/15/2023 Right otitis externa 11/15/2023 Salivary gland swelling 11/15/2023 Single live ([facility]) 01/15/2020 Snoring 11/15/2023 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) 12/30/2019 Suspected severe acute respiratory syndrome coronavirus 2 (SARS-CoV-2) infection 06/12/2023 SVT (supraventricular tachycardia) ([facility]) 08/26/2019 Syncope and collapse 06/03/2018 [...] drainage of cyst WISDOM TOOTH EXTRACTION 2007 [place] teeth REVIEW OF SYSTEMS Review of Systems: [...] nursing note reviewed. Exam conducted with a possum trapper present. Vitals: Estimated body mass index is 33.41 kg/m as calculated from the following: Height as of 11/19/23: 5' 6 . Weight as of this encounter: 207 lb. BP: 120/70 Patient's last menstrual period was 07/28/2024. ASSESSMENT & PLAN ICD-10-CM 1. 19 weeks gestation of ([facility]) Z3A.19 POCT urinalysis dipstick manually resulted 2. Second trimester ([facility]) Z34.92 POCT urinalysis dipstick manually resulted 3. Thyroid disease E07.9 4. Multigravida of advanced maternal age in second trimester ([facility]) O09.522 5. Gestational diabetes mellitus (GDM), antepartum, gestational diabetes method of control unspecified ([facility]) O24.419 Patient presents today for a [...] scan and Telemedicine with MFM provider in [place]. Documented by Rosi Murray LPN on behalf of: Wilton Herrmann DO documented in this encounterParkland Health [id number] Miscellaneous Notes* Telephone Encounter - Anni Abreu CMA - 12/03/2024 3:01 PM EDT Left message with patient to call our office to schedule her next appt in 2 week with an GROUNDS AND NURSERY SPECIALIST/PA. Left call back number and to press option 3 for scheduling. documented in this encounterOhioHealth Grady Memorial Hospital08-06-2025 Telephone encounter Note* Telephone Encounter - Anni Abreu CMA - 12/03/2024 3:01 PM EDT Left message with patient to call our office to schedule her next appt in 2 week with an GROUNDS AND NURSERY SPECIALIST/PA. Left call back number and to press option 3 for scheduling. [facility]08-06-2025 History of Present illness Narrative* Alisa Tori, VICTOR HUGO-SETTER UP - 12/03/2024 2:00 PM EDT REASON FOR [...] starting insulin. She is being [facility] at [facility] due to GDMA2. States [...] TSH 1.25 10/28/2024 No results found for: [id number] No results found for: CREATININE , BUN [...] baby. Little research has been done on gas load dispatcher effects of Metformin exposure to the fetus. [...] by e-mail to: or by fax to: [phone] TIME OF CONSULTATION: 60 minutes with the patient, >50% in discussion and counseling, coordination of care which was [id number], review of records and communication back to referring provider. BRENNEN Guillen 12/03/24 1500 documented in this encounterUniversity Hospitals Cleveland Medical CenterSongfor University Of Michigan Health–[id number] History of Present illness Narrative* Rosi Murray [...] Diagnosis Date Noted 32 weeks gestation of ([facility]) 11/28/2019 Abdominal pain 06/12/2023 Acute bronchitis due to infection 06/12/2023 Acute on chronic vesicular eczema of hands and feet 11/15/2023 Anemia complicating childbirth ([facility]) 01/16/2020 Anticoagulant long-term use 02/22/2020 Antiphospholipid antibody positive 09/10/2017 Antiphospholipid antibody syndrome ([facility]) 07/07/2019 Anxiety 06/12/2023 Blood pressure elevated without history of HTN 11/15/2023 BMI 37.0-37.9, adult 11/15/2023 Cerebral infarction, unspecified ([facility]) 05/16/2019 Cerebrovascular accident (CVA) due to stenosis of middle cerebral artery ([facility]) 02/22/2020 Cervicalgia 02/05/2019 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 ([facility]) 01/08/2020 Coagulation defect, unspecified ([facility]) 02/05/2019 Cold intolerance 11/15/2023 Deficiency of other specified B group vitamins 05/16/2019 Deviated septum 11/15/2023 Dizziness and giddiness 02/05/2019 Dry mouth 11/15/2023 Dysfunction of eustachian tube 06/12/2023 Dyspnea 06/12/2023 Elevated blood pressure reading 11/15/2023 Encounter for supervision of normal , unspecified, first trimester ([facility]) 05/29/2019 Environmental allergies 11/15/2023 Fatigue 12/29/2016 First degree perineal laceration during delivery ([facility]) 01/16/2020 Frequency of micturition 02/19/2019 Genitourinary symptoms 08/19/2021 Gestational diabetes mellitus (GDM) affecting ([facility]) 01/26/2022 H/O: hypothyroidism 11/15/2023 Hematochezia 06/12/2023 [...] anemia 01/16/2020 Irregular uterine bleeding 11/15/2023 problem ([facility]) 06/12/2023 Less than 8 weeks gestation of ([facility]) 06/05/2019 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 02/05/2019 Migraine without aura and without status migrainosus, not intractable 09/12/2017 Morbid obesity ([facility]) 11/15/2023 Muscle fasciculation 08/19/2021 Nasal polyps 11/15/2023 Non-smoker 11/15/2023 NEETA (obstructive sleep apnea) 11/15/2023 Other acute postprocedural pain 02/03/2019 Other general symptoms and signs 10/28/2019 Other immediate hemorrhage ([facility]) 01/16/2020 Other specified noninflammatory disorders of vagina 02/21/2019 Pain in joint 12/29/2016 Palpitations 08/26/2019 Paresthesia of bilateral legs 11/15/2023 Pelvic and perineal pain 02/01/2019 Personal history of urinary (tract) infections 01/16/2020 Pre-diabetes 11/15/2023 Primary hypercoagulable state ([facility]) 08/01/2022 Pruritus, unspecified 01/02/2020 Psychogenic hyperventilation 06/12/2023 Raised antibody titer 09/25/2017 Right lower quadrant pain 11/15/2023 Right otitis externa 11/15/2023 Salivary gland swelling 11/15/2023 Single live ([facility]) 01/15/2020 Snoring 11/15/2023 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) 12/30/2019 Suspected severe acute respiratory syndrome coronavirus 2 (SARS-CoV-2) infection 06/12/2023 SVT (supraventricular tachycardia) ([facility]) 08/26/2019 Syncope and collapse 06/03/2018 [...] Date AMA (advanced maternal age) multigravida 35+ ([facility]) Anemia Antiphospholipid syndrome ([facility]) Gestational diabetes ([facility] [facility]) Heartburn Hypothyroid Stroke (HCC) HISTORY PAST MEDICAL HISTORY SOCIAL HISTORY Past Medical History: Diagnosis Date AMA (advanced maternal age) multigravida 35+ (HHS-HCC) Anemia Antiphospholipid syndrome ([facility]HS-HCC) Gestational diabetes ([facility]) Heartburn Hypothyroid Stroke (HCC) Social [...] drainage of cyst WISDOM TOOTH EXTRACTION 2007 [place] teeth REVIEW OF SYSTEMS Review of Systems: [...] nursing note reviewed. Exam conducted with a possum trapper present. Vitals: Estimated body mass index is 33.57 kg/m as calculated from the following: Height as of 11/19/23: 5' 6 . Weight as of this encounter: 208 lb. BP: 108/76 Patient's last menstrual period was 07/28/2024. ASSESSMENT & PLAN ICD-10-CM 1. Second trimester ([facility]) Z34.92 Alpha fetoprotein, maternal Alpha fetoprotein, maternal 2. 16 weeks gestation of ([facility]) Z3A.16 POCT urinalysis dipstick manually resulted 3. Screening, , for anatomic survey ([facility]) Z36.89 CANCELED: US OB 14+ weeks [...] of: Wilton Herrmann DO documented in this encounterParkland Health [id number] Group counseling note* Group Note - Cindy [...] Face to face time was 100 minutes. Mr. Youth Work Phone: 1(893) 997-158907-23-2025 Miscellaneous Notes* Group Note - Cindy Miller [...] time was 100 minutes. documented in this encounterOhioHealth [facility]ady [facility]07-09-2025 Telephone encounter Note* Telephone Encounter - Rachael Johnson RN - 11/05/2024 12:48 PM EDT Pt updated. She reports she is unable to take aspirin. It makes my electrolytes go out of whack. Ididn't take with my previous pregnancies and I am not comfortable taking this time either. She will continue with Lovenox, as recommended. Pt is scheduled for appt with highway painter helper, 11/19/24, [facility]. She denies further questions, needs or concerns for our care team at this time. Appt verified for RTC Rachael Johnson RN [facility]07-09-2025 Miscellaneous Notes* Telephone Encounter - Rachael Johnson RN - 11/05/2024 12:48 PM EDT Pt updated. She reports she is unable to take aspirin. It makes my electrolytes go out of whack. Ididn't take with my previous pregnancies and I am not comfortable taking this time either. She will continue with Lovenox, as recommended. Pt is scheduled for appt with highway painter helper, 11/19/24, [facility]. She denies further questions, [...] note were not included. documented in this encounterMarion Hospital07-09-2025 Telephone encounter Note * Telephone Encounter - Katherine Negrete APRN.CNP - 11/05/2024 12:29 PM EDT Spoke with Dr. Moscoso and she is to continue Lovenox 40 daily and add baby asa (81 mg) daily. Please also make sure she is following OB High risk. Labs acceptable at this time. Will monitor. Thanks, Katherine Negrete APRN.SETTER UP [facility] Work Phone: [phone]) 105-470307-08-2025 Telephone encounter Note* Telephone Encounter - Abbie Jimenez PA-C - 11/04/2024 8:13 AM EDT Katherine saw this patient last and will be able to advise better of the plan of care. Abbie Jimenez PA-C [facility] Work Phone: 1(323) 247-849807-03-2025 History of Present illness Narrative* Rosi Murray [...] Diagnosis Date Noted 32 weeks gestation of ([facility]) 11/28/2019 Abdominal pain 06/12/2023 Acute bronchitis due to infection 06/12/2023 Acute on chronic vesicular eczema of hands and feet 11/15/2023 Anemia complicating childbirth ([facility]) 01/16/2020 Anticoagulant long-term use 02/22/2020 Antiphospholipid antibody positive 09/10/2017 Antiphospholipid antibody syndrome ([facility]) 07/07/2019 Anxiety 06/12/2023 Blood pressure elevated without history of HTN 11/15/2023 BMI 37.0-37.9, adult 11/15/2023 Cerebral infarction, unspecified ([facility]) 05/16/2019 Cerebrovascular accident (CVA) due to stenosis of middle cerebral artery ([facility]) 02/22/2020 Cervicalgia 02/05/2019 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 ([facility]) 01/08/2020 Coagulation defect, unspecified ([facility]) 02/05/2019 Cold intolerance 11/15/2023 Deficiency of other specified B group vitamins 05/16/2019 Deviated septum 11/15/2023 Dizziness and giddiness 02/05/2019 Dry mouth 11/15/2023 Dysfunction of eustachian tube 06/12/2023 Dyspnea 06/12/2023 Elevated blood pressure reading 11/15/2023 Encounter for supervision of normal , unspecified, first trimester ([facility]) 05/29/2019 Environmental allergies 11/15/2023 Fatigue 12/29/2016 First degree perineal laceration during delivery ([facility]) 01/16/2020 Frequency of micturition 02/19/2019 Genitourinary symptoms 08/19/2021 Gestational diabetes mellitus (GDM) affecting ([facility]) 01/26/2022 H/O: hypothyroidism 11/15/2023 Hematochezia 06/12/2023 [...] anemia 01/16/2020 Irregular uterine bleeding 11/15/2023 problem ([facility]) 06/12/2023 Less than 8 weeks gestation of ([facility]) 06/05/2019 penitentiary (current) use of antithrombotics/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 02/05/2019 Migraine without aura and without status migrainosus, not intractable 09/12/2017 Morbid obesity ([facility]) 11/15/2023 Muscle fasciculation 08/19/2021 Nasal polyps 11/15/2023 Non-smoker 11/15/2023 NEETA (obstructive sleep apnea) 11/15/2023 Other acute postprocedural pain 02/03/2019 Other general symptoms and signs 10/28/2019 Other immediate hemorrhage ([facility]) 01/16/2020 Other specified noninflammatory disorders of vagina 02/21/2019 Pain in joint 12/29/2016 Palpitations 08/26/2019 Paresthesia of bilateral legs 11/15/2023 Pelvic and perineal pain 02/01/2019 Personal history of urinary (tract) infections 01/16/2020 Pre-diabetes 11/15/2023 Primary hypercoagulable state ([facility]) 08/01/2022 Pruritus, unspecified 01/02/2020 Psychogenic hyperventilation 06/12/2023 Raised antibody titer 09/25/2017 Right lower quadrant pain 11/15/2023 Right otitis externa 11/15/2023 Salivary gland swelling 11/15/2023 Single live ([facility]) 01/15/2020 Snoring 11/15/2023 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) 12/30/2019 Suspected severe acute respiratory syndrome coronavirus 2 (SARS-CoV-2) infection 06/12/2023 SVT (supraventricular tachycardia) ([facility]) 08/26/2019 Syncope and collapse 06/03/2018 [...] Date AMA (advanced maternal age) multigravida 35+ ([facility]) Anemia Antiphospholipid syndrome ([facility]) Gestational diabetes ([facility]) Heartburn Hypothyroid Stroke ([facility]) HISTORY PAST MEDICAL HISTORY SOCIAL HISTORY Past Medical History: Diagnosis Date AMA (advanced maternal age) multigravida 35+ ([facility]-HCC) Anemia Antiphospholipid syndrome ([facility]-HCC) Gestational diabetes ([facility]) Heartburn Hypothyroid Stroke ([facility]) Social History Tobacco Use Smoking [...] drainage of cyst WISDOM TOOTH EXTRACTION 2007 [place] teeth REVIEW OF SYSTEMS Review of Systems: [...] nursing note reviewed. Exam conducted with a possum trapper present. Vitals: Estimated body mass index is 33.81 kg/m as calculated from the following: Height as of 11/19/23: 5' 6 . Weight as of this encounter: 209 lb 8 oz. BP: 110/76 Patient's last menstrual period was 07/28/2024. ASSESSMENT & PLAN ICD-10-CM 1. Second trimester ([facility]) Z34.92 POCT urinalysis dipstick manually resulted 2. 13 weeks gestation of ([facility]) Z3A.13 3. Thyroid disease E07.9 4. Multigravida of advanced maternal age in second trimester ([facility]) O09.522 New OB: Patient presents today [...] or undercooked meat, and stay away from [facility]. Patient has been consulted regarding any further do's and don'tsof . Patient voiced understanding and all questions and concerns were answered. Patient is currently on 40 Lovenox and will be referred to [facility] for recommendations/co-management throughout . Discussed concerns [...] of: Wilton Herrmann DO documented in this encounterParkland Health [id number] Telephone encounter Note* Telephone Encounter - Valeri Yeung RN - 10/30/2024 8:30 AM EDT Labs resulted. Please advise. Valeri Yeung RN [facility]07-01-2025 Telephone encounter Note* Telephone Encounter - Roberta Haskins - 10/28/2024 2:52 PM EDT Images from the original note were not included. [facility]07-01-2025 NoteHNO ID: [id number] Author: KATHERINE NEGRETE APRN.SETTER UP Service: ? Author Type: Nurse Practitioner Type: Progress Notes Filed: 10/29/2024 21:44 Note Text: NAME: Sanna Rendon CLINIC NO.: [id number] DATE OF SERVICE: October 28, 2024 (Penelope) [...] later in 2018. These were found in [place], [place]. I don't have access to these [...] vision changes both have (more content not included)...[facility]07-01-2025 History of Present illness Narrative* Katherine Negrete APRN.SETTER UP - 10/28/2024 2:33 PM EDT Images from the original note were not included. NAME: Sanna Rendon CLINIC NO.: [id number] DATE OF SERVICE: October 28, 2024 (Penelope) Some elements in this clinic note that are critical to medical decision making have been carefully reviewed and included from a prior clinic note dated: October 10, 2024 (Leovn) Additional Clinicians involved in Sanna Rendon's care: Jorge Mcwilliams, Humaira Gaviria, CC: Hypercoag state CASE SUMMARY / ASSESSMENT: 39 year old woman presents with a prior history of CVA in 2016 and an antiphospholipid antibody that was identified much later in 2018. These were found in [place], [place]. I don't have access to these [...] Monge soon. When she hada stroke in [place], she had symptoms up to a month before: uncontrollable headache, BP was elevated, knee stiffness, and blurry vision. Right facial drooping and difficulty [facility] She continues to take vitamins. Updated [...] and stayed on Lovenox Hgb 13.1 @ [facility] Recommended ER if persisting [...] and at age 69. Both lived in [place], [place] - but she was adopted. She was not able to see ID in October and will be seeing Dr. Baugh next week. Also will have her see Dr. Hamlin for her clotting disorder and make any other recommendations to optimize her treatment. Updated Visit, October 08, 2020: Telephone only Received call from pt stating she was seen in [facility] ER for numbness in her chest, throat, and extremities, and sob which has been worsening over the last week. We arranged a telephone visit for her chanw questions with me. Sanna Rendon is a 34 year old female seen for Hypercoagulable state and recent concerns and symptoms that required her to be seen at [facility] ER. She went to the ER with Gradual worsening of breathing after progressive tingling of fingers and legs. She currently remains very fatigued even though she is sleeping well. Now recalls that before her stroke she remembers having a bull's eye rash and was seen with severe headaches in [place], [place] - was found to have a [...] a root canal and was sent to [facility] for MRI which was [...] history goes back to January 2016 in [facility] where she had persisting headaches and slurred speech followed by lower extremity weakness. This took a few months to resolve and she is back to her normal state of being but some point in time during her her next she was seen by Dr. Humera Hyde in [place] as well and was found to have [...] which included preparing to see the patient, nsxr-re-dbhl patient care, completing clinical documentation, obtaining and/or reviewing separately obtained history, performing a medically appropriate examination, counseling and educating the pat ient/family/caregiver, ordering medications, tests, or procedures, independently interpreting results (not separately reported), and communicating results to the patient/family/caregiver. Katherine Negrete APRN.TOR Hematology [facility] Oncology Services Provided at: [place], [place] CC: MD Chalino [facility] [address] [place] [address] Humaira Gaviria MD [address] [place] [id number] MD Cosmo Kingston MD Michael Blank, MD documented in this encounterMarion Hospital06-27-2025 Telephone encounter Note * Telephone Encounter - Kaur Dunham MA - 10/24/2024 2:14 PM EDT New orders may need placed for appt on 10/28. Kaur Dunham MA [facility]06-27-2025 Miscellaneous Notes* Telephone Encounter - Kaur Dunham MA - 10/24/2024 2:14 PM EDT New orders may need placed for appt on 10/28. Kaur Dunham MA documented in this encounterMarion Hospital06-16-2025 Miscellaneous Notes* Telephone Encounter - Margo Khan RN - 10/13/2024 12:14 PM EDT Attempted to contact patient x3, call cannot be completed, cannot receive calls at this time. Unable to leave a voicemail. documented in this encounterOhioHealth Grady Memorial Hospital06-16-2025 Telephone encounter Note* Telephone Encounter - Margo Khan RN - 10/13/2024 12:14 PM EDT Attempted to contact patient x3, call cannot be completed, cannot receive calls at this time. Unable to leave a voicemail. [facility]06-05-2025 History of Present illness Narrative* [...] 7 lb 1 oz F Vag-Spont N OROPA Comments: MATERNAL HEMORRHAGE 2 SAB 03/29/13 16w5d [...] Antiphospholipid antibody positive 09/10/2017 Antiphospholipid antibody syndrome ([facility]) 07/07/2019 Anxiety 06/12/2023 Blood pressure elevated without history of HTN 11/15/2023 BMI 37.0-37.9, adult 11/15/2023 Cerebral infarction, unspecified 05/16/2019 Cerebrovascular accident (CVA) due to stenosis of middle cerebral artery ([facility]) 02/22/2020 Cervicalgia 02/05/2019 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 and without status migrainosus, not intractable ([facility]) 09/12/2017 Morbid obesity ([facility]) 11/15/2023 Muscle fasciculation 08/19/2021 Nasal [...] infections 01/16/2020 Pre-diabetes 11/15/2023 Primary hypercoagulable state ([facility]) 08/01/2022 Pruritus, unspecified 01/02/2020 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[facility]) 06/12/2023 Raised antibody titer 09/25/2017 Right lower quadrant pain 11/15/2023 Right otitis externa 11/15/2023 Salivary gland swelling 11/15/2023 Single live 01/15/2020 Snoring 11/15/2023 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) 12/30/2019 Suspected severe acute respiratory syndrome coronavirus 2 (SARS-CoV-2) infection 06/12/2023 SVT (supraventricular tachycardia) ([facility]) 08/26/2019 Syncope and collapse 06/03/2018 [...] (CMS/HCC) Gestational diabetes Heartburn Hypothyroid (CMS/HCC) Stroke (CMS/[facility]) Family History Problem Relation Name [...] drainage of cyst WISDOM TOOTH EXTRACTION 2007 [place] teeth Allergies Allergen Reactions Ciprofloxacin GI intolerance [...] Nurse Note: Patient desires to have [place] [employer] to one. Pt was advised to [...] or undercooked meat, and stay away from [facility]. Patient has also been advised to [...] by: Lala Hess MA documented in this encounterParkland Health [id number] NotePatient Education Infectious Disease Upper Respiratory Infection, [...] to help relieve symptoms, such as: ??? Udoj-mss-ahpphqf cold medicines. ??? Cough suppressants. Coughing is [...] other clear broths. General instructions ??? 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 ??? Avoid touching your mouth, face, eyes, [...] stiff neck. ? (more content not included)...[facility]05-07-2025 Miscellaneous Notes* Telephone Encounter - [...] advise Rachael Johnson RN documented in this encounterMarion Hospital05-07-2025 Telephone encounter Note * Telephone Encounter - Rachael Johnson RN - 09/03/2024 1:25 PM EDT Pt notified and appt for September. She denies any further questions, needs or concerns at thistime. Rachael Johnson RN [facility]05-07-2025 Telephone encounter Note* Telephone Encounter - Kristofer Calix MD - 09/03/2024 12:51 PM EDT No change in meds. [facility]05-06-2025 Telephone encounter Note* Telephone Encounter - Rachael Johnson RN - 09/02/2024 9:37 AM EDT Pt left a voicemail to inform she is approximately 5 weeks . She is asking any recommendations on med changes. Pt missed today's appt. Called and left VM to please call and schedule missed follow up MUNIRA. Fely: Please advise Rachael Johnson RN [facility]04-29-2025 Telephone encounter Note* Telephone Encounter - Serina aDwson MA - 08/26/2024 3:41 PM EDT Patient has an appt on 08/27/24. Would you like labs, if so place orders. Serina Dawson MA [facility]04-29-2025 Miscellaneous Notes* Telephone Encounter - Serina Horton MA - 08/26/2024 3:41 PM EDT Patient has an appt on 08/27/24. Would you like labs, if so place orders. Serina Dawson MA documented in this encounterMarion Hospital04-08-2025 Evaluation + Plan note Future Scheduled Tests Laboratory* HgbA1c 08/05/24 * HgbA1c 11/04/24 Radiology* CT Soft Tissue Neck w/ Contrast 11/12/23 [facility] 03-27-2025 History of Present illness Narrative* Rosi Spitler, HUMAN RESOURCES TRAINING MANAGER - 07/24/2024 11:50 AM EDT Reason for [...] Antiphospholipid antibody positive 09/10/2017 Antiphospholipid antibody syndrome ([facility]) 07/07/2019 Anxiety 06/12/2023 Blood pressure elevated without history of HTN 11/15/2023 BMI 37.0-37.9, adult 11/15/2023 Cerebral infarction, unspecified ([facility]) 05/16/2019 Cerebrovascular accident (CVA) due to stenosis of middle cerebral artery ([facility]) 02/22/2020 Cervicalgia 02/05/2019 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..] nursing note reviewed. Exam conducted with a possum trapper present. Vitals: Estimated body mass index is [...] of: Wilton Herrmann DO documented in this encounterParkland Health [id number] NotePatient Education Emergency Medicine Bradycardia, Adult Bradycardia is a chxggw-pous-afxgxi heartbeat. A normal resting heart rate for [...] provider. ??? Follow a heart-healthy diet. A certified nutritionist (dietitian) can help educate you about healthy [...] liquor (44 mL). General instructions ??? Take gctg-ikq-usfuxdl and prescription medicines only as told by [...] heartbeat (palpitations). ??? (more content not included)...[facility]03-03-2025 Hospital Discharge instructions Patient Education [...] Follow these instructions at home: Medicines Give easu-egk-luvhxsm and prescription medicines only as told by [...] find more information PANDAS Network: pandasnetwork.org National [place] of Mental Health: [facility].nih.gov Contact a health care provider [...] the National Suicide Prevention Lifeline at or 175. This is open 24 hours a day. Text the Crisis Text Line at 530342. Summary Pediatric autoimmune neuropsychiatric disorders associated with [...] provider. Document Revised: 01/09/2022 Document Reviewed: 01/09/2022 [employer] Patient Education 2023 [employer]. 06/30/2024 09:20:50 Common Variable Immunodeficiency Common Variable [...] Follow these instructions at home: Medicines Take bkah-dev-umvrnuu and prescription medicines only as told by [...] disease. Where to find more information National [place] of Allergy and Infectious Disease: www.niaid.nih.gov Contact [...] risk for frequent or unusual infections. Take tdfm-hpy-vpstdth and prescription medicines only as told by [...] provider. Document Revised: 11/18/2021 Document Reviewed: 11/18/2021 [employer] Patient Education 2023 [employer]. 06/30/2024 09:18:06 DASH Eating Plan DASH Eating [...] Dairy Whole or 2% milk, cream, and wltw-sse-orhx. Whole or full-fat cream cheese. Whole-fat or [...] more information National Heart, Lung, and Blood [place] (NHLBI): nhlbi.nih.gov [place] Heart Association (AHA): heart.org Academy of Nutrition and Dietetics: eatright.org National Kidney Foundation (NKF): kidney.org This information is not intended to replace advice given to you by your health care provider. Make sure you discuss any questions you have with your health care provider. Document Revised: 05/03/2023 Document Reviewed: 05/03/2023 Elsevier Patient Education 2023 [employer] Follow Up Care 06/25/2024 13:53:59 With:PRAVEEN RESENDEZ FAAFP, CHRIS Perez, PED Address: [place] [address]- When:Within 2 Month(s) [facility] 03-03-2025 NotePatient Education [...] these instructions at home: Medicines ??? Take xtwd-siz-wxzwmhm and prescription medicines only as told by [...] Where to find more information ??? National [place] of Allergy and Infectious Disease: www.niaid.nih.gov Contact a health care provider if: ??? You have a fever. ??? You have any symptoms of infection such as chills, worsening cough, or severe earache. ??? You make high-pitched whistling sounds when you breathe, most often when you breathe out (wheeze). (more content not included)...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 02/05/2019 Migraine without aura and without status migrainosus, not intractable ([facility]) 09/12/2017 Morbid obesity ([facility]) 11/15/2023 Muscle fasciculation 08/19/2021 Nasal [...] infections 01/16/2020 Pre-diabetes 11/15/2023 Primary hypercoagulable state ([facility]) 08/01/2022 Pruritus, unspecified 01/02/2020 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[facility]) 06/12/2023 Raised antibody titer 09/25/2017 Right lower quadrant pain 11/15/2023 Right otitis externa 11/15/2023 Salivary gland swelling 11/15/2023 Single live 01/15/2020 Snoring 11/15/2023 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) 12/30/2019 Suspected severe acute respiratory syndrome coronavirus 2 (SARS-CoV-2) infection 06/12/2023 SVT (supraventricular tachycardia) ([facility]) 08/26/2019 Syncope and collapse 06/03/2018 Other bacterial infections of unspecified site 06/27/2019 Thrombocytopenia, unspecified ([facility]) 11/20/2019 Hypoglycemia 06/12/2023 Unspecified condition associated with female genital organs and menstrual cycle 05/09/2019 Unspecified ovarian cyst, right side 02/06/2019 Urinary tract infection 10/16/2019 Referred otalgia of right ear 11/19/2023 LPRD (laryngopharyngeal reflux disease) 11/19/2023 Resolved Ambulatory Problems Diagnosis Date Noted No Resolved Ambulatory Problems Past Medical History: Diagnosis Date AMA (advanced maternal age) multigravida 35+ Anemia Antiphospholipid syndrome ([facility]/HCC) Gestational diabetes Heartburn Hypothyroid ([facility]) Stroke ([facility]) HISTORY PAST MEDICAL HISTORY SOCIAL HISTORY Past Medical History: Diagnosis Date AMA (advanced maternal age) multigravida 35+ Anemia Antiphospholipid syndrome ([facility]/HCC) Gestational diabetes Heartburn Hypothyroid ([facility]) Stroke ([facility]) Social History Tobacco Use Smoking [...] drainage of cyst WISDOM TOOTH EXTRACTION 2007 [place] teeth REVIEW OF SYSTEMS Review of Systems: [...] nursing note reviewed. Exam conducted with a possum trapper present. Vitals: Estimated body mass index is [...] of: Wilton Herrmann DO documented in this encounterParkland Health [id number] Hospital Discharge instructions Patient Education 06/09/2024 14:23:47 [...] Do not chew gum. General instructions Take ebbz-iva-frcljtm and prescription medicines only as told by [...] important. Where to find more information [employer] [place] [employer]: www.nidcr.nih.gov Contact [...] provider. Document Revised: 11/27/2021 Document Reviewed: 11/27/2021 [employer] Patient Education 2023 [employer]. Follow Up Care 06/06/2024 11:26:13 With:PRAVEEN RESENDEZ FAAFP, Penelope Tony, CHRIS, PED Address: [address], [place] [address]- When:Within 6 Month(s) [facility] 02-10-2025 NotePatient Education [...] not chew gum. General instructions ??? Take qybu-npm-hzbpvrc and prescription medicines only as told by [...] Where to find more information ??? [employer] [place] [employer]: www.nidcr.nih.gov Contact [...] provider. Document Revised: 11/27/2021 Document Reviewed: 11/27/2021 [employer] Patient Education ? 2023 [employer].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 Coagulation defect, unspecified ([facility]) 02/05/2019 Cold intolerance 11/15/2023 Deficiency [...] aura and without status migrainosus, not intractable ([facility]) 09/12/2017 Morbid obesity ([facility]) 11/15/2023 Muscle fasciculation 08/19/2021 Nasal [...] infections 01/16/2020 Pre-diabetes 11/15/2023 Primary hypercoagulable state ([facility]) 08/01/2022 Pruritus, unspecified 01/02/2020 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[facility]) 06/12/2023 Raised antibody titer 09/25/2017 Right lower quadrant pain 11/15/2023 Right otitis externa 11/15/2023 Salivary gland swelling 11/15/2023 Single live 01/15/2020 Snoring 11/15/2023 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) 12/30/2019 Suspected severe acute respiratory syndrome coronavirus 2 (SARS-CoV-2) infection 06/12/2023 SVT (supraventricular tachycardia) ([facility]) 08/26/2019 Syncope and collapse 06/03/2018 Other bacterial infections of unspecified site 06/27/2019 Thrombocytopenia, unspecified ([facility]) 11/20/2019 Hypoglycemia 06/12/2023 Unspecified condition [...] drainage of cyst WISDOM TOOTH EXTRACTION 2007 [place] teeth REVIEW OF SYSTEMS Review of Systems: [...] nursing note reviewed. Exam conducted with a possum trapper present. Vitals: Estimated body mass index is [...] Patient had recent HCG level drawn at [facility] 05/31/2024 lab value was 6. Documented by Renate Vegas LPN on behalf of: Wilton Herrmann DO documented in this encounterParkland Health [id number] Telephone encounter Note* Telephone Encounter - Taylor Escudero - 05/28/2024 1:45 PM EST Triage to call with iron results [facility]01-29-2025 Miscellaneous Notes* Telephone Encounter - Taylor Escudero - 05/28/2024 1:45 PM EST Triage to call with iron results documented in this encounterMarion Hospital01-29-2025 Instructions* Patient Instructions* Nathaly Florence - 05/28/2024 1:44 PM EST Triage to call iron results Continue Lovenox - patient prefers 40 mg (rather than rec 80mg) Encouraged her to reconsider Take B12 supplement in the form of a sublingual tablet RTC in 3 months Labs same day or 2-7 days prior documented in this encounterMarion Hospital01-29-2025 History of Present illness Narrative* Kristofer Calix MD - 05/28/2024 1:00 PM EST Images from the original note were not included. NAME: Sanna Rendon CLINIC NO.: [id number] DATE OF SERVICE: May 28, 2024 (Levon) [...] later in 2018. These were found in [place], [place]. I don't have access to these [...] Monge soon. When she hada stroke in [place], she had symptoms up to a month before: uncontrollable headache, BP was elevated, knee stiffness, and blurry vision. Right facial drooping and difficulty [facility] She continues to take vitamins. Updated [...] and stayed on Lovenox Hgb 13.1 @ [facility] Recommended ER if persisting [...] and at age 69. Both lived in [place], [place] - but she was adopted. She was not able to see ID in October and will be seeing Dr. Baugh next week. Also will have her see Dr. Hamlin for her clotting disorder and make any other recommendations to optimize her treatment. Updated Visit, October 08, 2020: Telephone only Received call from pt stating she was seen in [facility] ER for numbness in her chest, throat, and extremities, and sob which has been worsening over the last week. We arranged a telephone visit for her toreview questions with me. Sanna Rendon is a 34 year old female seen for Hypercoagulable state and recent concerns and symptoms that required her to be seen at [facility] ER. She went to the ER with Gradual worsening of breathing after progressive tingling of fingers and legs. She currently remains very fatigued even though she is sleeping well. Now recalls that before her stroke she remembers having a bull's eye rash and was seen with severe headaches in [place], [place] - was found to have a [...] a root canal and was sent to [facility] for MRI which was [...] history goes back to January 2016 in [facility] where she had persisting headaches and slurred speech followed by lower extremity weakness. This took a few months to resolve and she is back to her normal state of being but some point in time during her her next she was seen by Dr. Humera Hyde in [place] as well and was found to have [...] which included preparing to see the patient, tvef-fr-autr patient care, completing clinical documentation, performing a medically appropriate examination, counseling and educating the patient/family/caregiver, ordering medications, tests, or p rocedures, independently interpreting results (not separately reported), communicating results to the patient/family/caregiver, and care coordination (not separately reported). Kristofer Calix MD, CPE Hematology and Oncology Services Provided at: [place], [place] Scribe Attestation: This note was scribed [...] under my direction. CC: MD Wilton Day, [address] [place] [address] Humaira Gaviria MD [address] [place] [address] [place] [id number] MD Cosmo Kingston MD Michael Blank, MD documented in this encounterMarion Hospital01-29-2025 NoteHNO ID: [id number] Author: KRISTOFER CALIX MD Service: ? Author Type: Physician Type: Progress Notes Filed: 05/29/2024 09:13 Note Text: NAME: Sanna Rendon CLINIC NO.: [id number] DATE OF SERVICE: May 28, 2024 (Levon) [...] later in 2018. These were found in [place], [place]. I don't have access to these [...] soon. When she had a stroke in [place], she had symptoms up to a month [...] breast feeding. Updated Visit, (more content not included)...[facility] 05-14-2024 Telephone encounter Note* Telephone Encounter - Rachael Johnson RN - 05/14/2024 10:15 AM EST Pt called to inform she had a miscarriage, Sunday (05/10/24) Asking if any additional blood work was needed from out standpoint. Pt aware we will be checking her CBC for any signs of anemia and her iron studies for deficiency. She is aware if her charge entry specialist or PCP request any additional testing, we can certainly draw with her appt 05/21 (will just need to fax orders). She denies any further questions needs or concerns at this time. MARSHA Rushk: YANET [facility]01-15-2025 Miscellaneous Notes* Telephone Encounter - Rachael Johnson RN - 05/14/2024 10:15 AM EST Pt called to inform she had a miscarriage, Sunday (05/10/24) Asking if any additional blood work was needed from out standpoint. Pt aware we will be checking her CBC for any signs of anemia and her iron studies for deficiency. She is aware if her charge entry specialist or PCP request any additional testing, we can certainly draw with her appt 05/21 (will just need to fax orders). She denies any further questions needs or concerns at this time. MARSHA Rushk: YANET documented in this encounterMarion Hospital01-15-2025 Telephone encounter Note * Telephone Encounter [...] thinnersat follow up appointment. PVU--Rosi Presley LPN [facility] [id number] Miscellaneous Notes* Telephone Encounter - Rosi Murray [...] appointment. PVU--Rosi Presley LPN documented in this encounterParkland Health [id number] History of Present illness Narrative* Pamela Walter [...] aura and without status migrainosus, not intractable ([facility]) 09/12/2017 Morbid obesity ([facility]) 11/15/2023 Muscle fasciculation 08/19/2021 Nasal [...] infections 01/16/2020 Pre-diabetes 11/15/2023 Primary hypercoagulable state ([facility]) 08/01/2022 Pruritus, unspecified 01/02/2020 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[facility]) 06/12/2023 Raised antibody titer 09/25/2017 Right lower quadrant pain 11/15/2023 Right otitis externa 11/15/2023 Salivary gland swelling 11/15/2023 Single live 01/15/2020 Snoring 11/15/2023 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) 12/30/2019 Suspected severe acute respiratory syndrome coronavirus 2 (SARS-CoV-2) infection 06/12/2023 SVT (supraventricular tachycardia) ([facility]) 08/26/2019 Syncope and collapse 06/03/2018 Other bacterial infections of unspecified site 06/27/2019 Thrombocytopenia, unspecified ([facility]) 11/20/2019 Hypoglycemia 06/12/2023 Unspecified condition associated with female genital organs and menstrual cycle 05/09/2019 Unspecified ovarian cyst, right side 02/06/2019 Urinary tract infection 10/16/2019 Referred otalgia of right ear 11/19/2023 LPRD (laryngopharyngeal reflux disease) 11/19/2023 Resolved Ambulatory Problems Diagnosis Date Noted No Resolved Ambulatory Problems Past Medical History: Diagnosis Date AMA (advanced maternal age) multigravida 35+ Anemia Antiphospholipid syndrome ([facility]) Gestational diabetes Heartburn Hypothyroid ([facility]) Stroke ([facility]) HISTORY PAST MEDICAL HISTORY SOCIAL HISTORY Past Medical History: Diagnosis Date AMA (advanced maternal age) multigravida 35+ Anemia Antiphospholipid syndrome ([facility]/HCC) Gestational diabetes Heartburn Hypothyroid ([facility]/HCC) Stroke ([facility]) Social History Tobacco Use Smoking [...] drainage of cyst WISDOM TOOTH EXTRACTION 2007 [place] teeth REVIEW OF SYSTEMS Review of Systems: [...] nursing note reviewed. Exam conducted with a possum trapper present. Vitals: Estimated body mass index is [...] urinalysis dipstick manually resulted documented in this encounterParkland Health [id number] History of Present illness Narrative* Ariane Joseph [...] Antiphospholipid antibody positive 09/10/2017 Antiphospholipid antibody syndrome ([facility]/HCC) 07/07/2019 Anxiety 06/12/2023 Blood pressure elevated without history of HTN 11/15/2023 BMI 37.0-37.9, adult 11/15/2023 Cerebral infarction, unspecified ([facility]) 05/16/2019 Cerebrovascular accident (CVA) due to stenosis of middle cerebral artery ([facility]) 02/22/2020 Cervicalgia 02/05/2019 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 Coagulation defect, unspecified ([facility]) 02/05/2019 Cold intolerance 11/15/2023 Deficiency [...] Less than 8 weeks gestation of 06/05/2019 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 02/05/2019 Migraine without aura and without status migrainosus, not intractable ([facility]) 09/12/2017 Morbid obesity ([facility]) 11/15/2023 Muscle fasciculation 08/19/2021 Nasal [...] infections 01/16/2020 Pre-diabetes 11/15/2023 Primary hypercoagulable state ([facility]) 08/01/2022 Pruritus, unspecified 01/02/2020 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[facility]) 06/12/2023 Raised antibody titer 09/25/2017 Right lower quadrant pain 11/15/2023 Right otitis externa 11/15/2023 Salivary gland swelling 11/15/2023 Single live 01/15/2020 Snoring 11/15/2023 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) 12/30/2019 Suspected severe acute respiratory syndrome coronavirus 2 (SARS-CoV-2) infection 06/12/2023 SVT (supraventricular tachycardia) ([facility]) 08/26/2019 Syncope and collapse 06/03/2018 Other bacterial infections of unspecified site 06/27/2019 Thrombocytopenia, unspecified ([facility]) 11/20/2019 Hypoglycemia 06/12/2023 Unspecified condition associated with female genital organs and menstrual cycle 05/09/2019 Unspecified ovarian cyst, right side 02/06/2019 Urinary tract infection 10/16/2019 Referred otalgia of right ear 11/19/2023 LPRD (laryngopharyngeal reflux disease) 11/19/2023 Resolved Ambulatory Problems Diagnosis Date Noted No Resolved Ambulatory Problems Past Medical History: Diagnosis Date AMA (advanced maternal age) multigravida 35+ Anemia Antiphospholipid syndrome ([facility]) Gestational diabetes Heartburn Hypothyroid ([facility]) Stroke ([facility]) Family History Problem Relation Name [...] drainage of cyst WISDOM TOOTH EXTRACTION 2007 [place] teeth Allergies Allergen Reactions Ciprofloxacin GI intolerance [...] or undercooked meat, and stay away from [facility]. Patient has also been advised to [...] by: Ariane Joseph LPN documented in this encounterParkland Health [id number] Telephone encounter Note* Telephone Encounter - Rachael Johnson RN - 02/28/2024 8:21 AM EDT Pt aware and agreeable to plan of care. Pt denies any further questions, needs or concerns at this time. Appt verified for lab/follow up Rachael Johnson RN [facility]10-31-2024 Miscellaneous Notes* Telephone Encounter - Rachael [...] advise Rachael Johnson RN documented in this encounterMarion Hospital10-30-2024 Telephone encounter Note * Telephone Encounter - Kristofer Calix MD - 02/27/2024 4:36 PM EDT She can take the iron with prenatals. We should March labs as scheduled. [facility]10-30-2024 Telephone encounter Note* Telephone Encounter - Rachael Johnson RN - 02/27/2024 9:41 AM EDT Pt 4 weeks and inquiring if she should have March's lab work completed now or wait until scheduled appt. Pt last labs completed 01/02/24. Pt also would like to know if it is okay to take with iron? Fely: Please advise Rachael Johnson RN [facility]10-08-2024 Hospital Discharge instructions Patient Education 02/05/2024 [...] condition. 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 Avoid contact with people who have cold [...] it is easier to cough up. Take gede-dku-lsiwxwv and prescription medicines only as told by [...] provider. Document Revised: 07/27/2022 Document Reviewed: 08/17/2021 [employer] Patient Education 2023 [employer]. Follow Up Care 02/04/2024 08:47:42 With:PRAVEEN RESENDEZ FAAFP, CHRIS Perez, PED Address: [address] [place] [address], [facility] [place] [phone]- When:Within 3 Month(s) [facility] 10-08-2024 NotePatient Education [...] Follow these instructions at home: ? 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 ? Avoid contact with people who have [...] is easier to cough up. ? Take mjek-opl-hdtfcrp and (more content not included)...[facility]10-05-2024 Hospital Discharge instructions Follow Up Care 02/02/2024 11:19:56 With:Anni Bernstein MD, [facility], MED Address: [address] [place] [phone] When: only if needed [facility] 09-09-2024 Miscellaneous Notes* [...] FE results. Thank you documented in this encounterMarion Hospital09-09-2024 Telephone encounter Note * Telephone Encounter - Valeri Yeung RN - 01/07/2024 8:29 AM EDT No need for IV iron per CC'd chart from Dr. Calix. Attempt to call pt to notify. Left detailed message on, along with call back number on voicemail. Valeri Yeung RN [facility]09-04-2024 Telephone encounter Note* Telephone Encounter - Marleen Mcdonald - 01/02/2024 2:[address] Luna is requesting Triage to call Sanna with her FE results. Thank you [facility]09-04-2024 Instructions* Patient Instructions* Nathaly Florence - 01/02/2024 2:08 PM EDT Triage to call iron results Continue Lovenox - patient prefers 40 mg (rather than rec 80mg) Encouraged her to reconsider Take B12 supplement in the form of a sublingual tablet RTC in 3 months Labs same day Vitamin D, TSH, Calcium with CMP documented in this encounterMarion Hospital09-04-2024 Nurse Note* Serina Horton MA - [...] MRI but was negative. Serina Dawson MA [facility]09-04-2024 Nurse Note* Serina Dawson MA - [...] negative. Serina Dawson MA documented in this encounterMarion Hospital09-04-2024 History of Present illness Narrative* Kristofer Calix MD - 01/02/2024 1:45 PM EDT Images from the original note were not included. NAME: Sanna Rendon CLINIC NO.: [id number] DATE OF SERVICE: January 02, 2024 (Levon) [...] later in 2018. These were found in [place], [place]. I don't have access to these [...] Monge soon. When she hada stroke in [place], she had symptoms up to a month before: uncontrollable headache, BP was elevated, knee stiffness, and blurry vision. Right facial drooping and difficulty speaking [facility]. She continues to take vitamins. Updated [...] and stayed on Lovenox Hgb 13.1 @ [facility] Recommended ER if persisting [...] and at age 69. Both lived in [facility] but she was adopted. She was not able to see ID in October and will be seeing Dr. Baugh next week. Also will have her see Dr. Hamlin for her clotting disorder and make any other recommendations to optimize her treatment. Updated Visit, October 08, 2020: Telephone only Received call from pt stating she was seen in [facility] ER for numbness in her chest, throat, and extremities, and sob which has been worsening over the last week. We arranged a telephone visit for her toreview questions with me. Sanna Rendon is a 34 year old female seen for Hypercoagulable state and recent concerns and symptoms that required her to be seen at [facility] ER. She went to the ER with Gradual worsening of breathing after progressive tingling of fingers and legs. She currently remains very fatigued even though she is sleeping well. Now recalls that before her stroke she remembers having a bull's eye rash and was seen with severe headaches in [facility] was found to have a stroke in [...] a root canal and was sent to [facility] for MRI which was [...] history goes back to January 2016 in [facility] where she had persisting headaches and slurred speech followed by lower extremity weakness. This took a few months to resolve and she is back to her normal state of being but some point in time during her her next she was seen by Dr. Humera Hyde in [place] as well and was found to have [...] which included preparing to see the patient, etfk-uw-hthj patient care, completing clinical documentation, performing a medically appropriate examination, counseling and educating the patient/family/caregiver, ordering medications, tests, or p rocedures, independently interpreting results (not separately reported), communicating results to the patient/family/caregiver, and care coordination (not separately reported). Kristofer Calix MD, CPE Hematology and Oncology Services Provided at: [place], [place] Scribe Attestation: This note was scribed [...] under my direction. CC: MD Wilton Day, [address] [place] [address] Humaira Gaviria MD [address] [place] [id number] MD Cosmo Kingston MD Michael Blank, MD documented in this encounterMarion Hospital08-19-2024 Telephone encounter Note * Telephone Encounter - Rachael Johnson RN - 12/17/2023 12:57 PM EDT Pt updated and will follow up with PCP. Denies further questions, needs or concerns at this time for our provider. Rachael Johnson RN [facility]08-19-2024 Miscellaneous Notes* Telephone Encounter - Rachael [...] to IV Iron 11/29/23? documented in this encounterMarion Hospital08-19-2024 Telephone encounter Note * Telephone Encounter - Kristofer Calix MD - 12/17/2023 12:52 PM EDT No - sounds like she has some infectious process going on - would rec PCP. [facility]08-19-2024 Telephone encounter Note* Telephone Encounter - [...] possible delayed reaction to IV Iron 11/29/23? [facility]08-01-2024 History of Present illness Narrative* Becki Gutierrez RN - 11/29/2023 2:01 PM EDT Y Y documented in this encounterMarion Hospital08-01-2024 Telephone encounter Note * Telephone Encounter - Rachael Johnson RN - 11/29/2023 12:45 PM EDT MARSHA Connell, treatment aware of changes. [facility]08-01-2024 Miscellaneous Notes* Telephone Encounter - Rachael [...] a different iron formulation. [facility] Telephone encounter Note * Telephone Encounter - Rachael Johnson RN - 11/29/2023 12:41 PM EDT Spoke with pt. She will obtain Pepcid OTC from our retail pharmacy on arrival to take (1) 20 mg tablet. She is aware and agreeable to IV steroid for infusion as well. Rachael Johnson RN [facility] Telephone encounter Note* Telephone Encounter - Raissa Aly RPh - 11/29/2023 12:40 PM EDT A one time dose of dexamethasone is safe when . I added 8mg to the plan for your review. Please adjust dose if necessary. Thanks, Raissa Aly RPh [facility] Work Phone: [phone] Telephone encounter Note* Telephone Encounter - Raissa Aly RPh - 11/29/2023 12:34 PM EDT Famotidine is safe when . Do we want to administer the venofer slower? What rate? Thanks, Raissa Aly [facility]08[facility] Telephone encounter Note* Telephone Encounter - Rachael Johnson RN - 11/29/2023 11:56 AM EDT Called and discussed with pt. She is and cannot take Benadryl. She is reluctant to take Pepcid. Attempted to call retail, infusion pharmacy and [facility], no answer, to ask safety of pepcid in . Pharm/Fely: please advise Rachael Johnson RN [facility]08-01[facility] Telephone encounter Note* Telephone Encounter - [...] have to choose a different iron formulation. [facility] History of Present illness Narrative* Alison Linares RN - 11/15/2023 1:42 PM EDT Pt reports having nausea and lightheadedness this morning. She has seen her pcp regarding these symptoms and is being worked up to figure out the cause. documented in this encounterMar[facility]07-18-[facility]24 Telephone encounter Note * Telephone Encounter - Evelyn Sanabria - 11/15/2023 9:19 AM EDT 1st report of treatment-Non oncology regimen (Venofer) Patient holds Medicaid coverage and there isno available FA at this time. [facility] Miscellaneous Notes* Telephone Encounter - Domo Cat Evelyn Radha - 11/15/2023 9:19 AM EDT 1st report of treatment-Non oncology regimen (Venofer) Patient holds Medicaid coverage and there isno available FA at this time. documented in this encounterMarion [facility]07-12-[facility]24 Hospital Discharge instructions Patient Education 11/09/2023 [...] your hypoglycemia. Where to find more information [place] Diabetes Association: www.diabetes.org National [place] of Diabetes and Digestive and Kidney Diseases: [...] provider. Document Revised: 03/17/2021 Document Reviewed: 03/17/2021 [employer] Patient Education 2022 [employer]. 11/09/2023 15:56:06 Prediabetes Prediabetes Prediabetes is when [...] hard liquor (44 mL). General instructions Take cyts-xap-aubhfeg and prescription medicines only as told by [...] is important. Where to find more information [place] Diabetes Association: www.diabetes.org Academy of Nutrition and Dietetics: www.eatright.org [place] Heart Association: www.heart.org Contact a health care [...] provider. Document Revised: 07/15/2020 Document Reviewed: 07/15/2020 [employer] Patient Education 2022 [employer]. 11/09/2023 15:56:02 Palpitations Palpitations Palpitations are feelings [...] ask your health careprovider. General instructions Take vvhr-bgy-glntwvk and prescription medicines only as told by [...] provider. Document Revised: 09/07/2021 Document Reviewed: 09/07/2021 [employer] Patient Education 2022 [employer]. 11/09/2023 15:55:58 Fatigue Fatigue If you have [...] Follow these instructions at home: Medicines Take mzkl-pcw-uatfzva and prescription medicines only as told by [...] day. Text the Crisis Text Line at 436293. Summary If you have fatigue, you feel [...] Document Reviewed: 02/06/2022 Elsevier Patient Education 2022 [employer] Follow Up Care 11/08/2023 11:31:43 With:PRAVEEN RESENDEZ FAAFP, Penelope Tony, CHRIS, PED Address: [address], [facility] [place] [address]- When: Unknown [facility] 07-12-2024 NotePatient Education [...] health care provider. General instructions ? Take fykb-zcb-yxniolj and prescription medicines only as told by [...] provider. Document Revised: 09/07/2021 Document Reviewed: 09/07/2021 [employer] Patient Education ? 2022 [employer]. Endocrinology Preventing Hypoglycemia Hypoglycemia occurs when the [...] hypoglycemia may not (more content not included)...[facility]07-12-2024 History of Present illness Narrative* Tamiko Krueger LSW - 11/09/2023 9:27 AM EDT Patient appears on the [facility] First Time Treatment List for a non-oncology treatment. No psychosocial assessment is indicated. TIM Huerta-Jaylan documented in this encounterMarion Hospital07-09-2024 Telephone encounter Note * Telephone Encounter [...] dizziness, etc. Appointments verified. Rachael Johnson RN [facility]07-09-[facility]24 Miscellaneous Notes* Telephone Encounter - Rachael [...] thinner. Roberta Haskins * Telephone Encounter - Rboerta Haskins - 11/05/2023 12:47 PM EDT Appointment [...] MD Sent: 11/05/2023 11:33 AM EDT To: [facility] Triage Pool; [facility] Clerical Pool Perry Isidro - looks like you need Iron again. Dr. Middleton Cancel her virtual set for 11/05 and 11/19 - infuse 3 doses weekly iron and then see her in 8 weeks inperson - labs same day. Thanks! documented in this encounterMarion Hospital07-08-2024 Telephone encounter Note * Telephone Encounter [...] get you feeling better. Best, Dr. Middleton [facility]07-08[facility] Telephone encounter Note* Telephone Encounter - [...] is on a blood thinner. Roberta Haskins [facility]07-08-[facility] Telephone encounter Note* Telephone Encounter - Roberta Haskins - 11/05/2023 12:47 PM EDT Appointment tomorrow cancelled. Andres tried calling her this morning and was unable to get a hold ofher. Will keep trying patient to schedule for Iron. Roberta Haskins [facility]07-08-[facility] Telephone encounter Note* Telephone Encounter - Roberta Haskins - 11/05/2023 12:47 PM EDT ----- Message from Rachael Johnson RN sent at 11/05/2023 11:53 AM EDT ----- ----- Message ----- From: Kristofer Calix MD Sent: 11/05/2023 11:33 AM EDT To: [facility] Triage Pool; [facility] Clerical Pool Perry Isidro - looks like you need Iron again. Dr. Middleton Cancel her virtual set for 11/05 and 11/19 - infuse 3 doses weekly iron and then see her in 8 weeks inperson - labs same day. Thanks! [facility] Hospital Discharge instructions Patient Education 10/23/2023 [...] specializes in ear, nose, and throat disorders (meter technician, or ENT) for more tests and treatment. [...] (rhinoplasty). Follow these instructions at home: Take ybgs-egs-jbuuknw and prescription medicines only as told by [...] specializes in ear, nose, and throat disorders (meter technician, or ENT) for more tests and treatment. This information is not intended to replace advice given to you by your health care provider. Make sure you discuss any questions you have with your health care provider. Document Revised: 12/12/2021 Document Reviewed: 12/12/2021 [employer] Patient Education 2022 [employer]. 10/23/2023 17:12:52 Nasal Polyps Nasal Polyps Nasal [...] instructions at home: Medicines Take or use ncdp-dxk-mgcubip and prescription medicines only as told by [...] provider. Document Revised: 04/05/2022 Document Reviewed: 04/05/2022 [employer] Patient Education 2022 [employer]. 10/23/2023 17:12:52 Nasal Polypectomy Nasal Polypectomy Nasal [...] including vitamins, herbs, eye drops, creams, and gkyk-lzt-njlnnfn medicines. Any problems you or family members [...] provider tells you to take them. Taking oysf-ivx-igbaxfn medicines, vitamins, herbs, and supplements. General instructions [...] provider. Document Revised: 04/05/2022 Document Reviewed: 04/05/2022 [employer] Patient Education 2022 [employer]. 10/23/2023 17:12:46 BMI for Adults BMI for [...] numbers. This can be done either in Micronesian (U.S.) or metric measurements. Note that charts and online BMI calculators are available to help you find your BMI quickly and easily without having to do these calculations yourself. To calculate your BMI in Micronesian (U.S.) measurements: 1.Measure your weight in pounds [...] Centers for Disease Control and Prevention: www.cdc.gov [place] Heart Association: www.heart.org National Heart, Lung, and Blood [place]: www.nhlbi.nih.gov Summary Body mass index (BMI) is a number that is calculated from a person's weight and height. BMI may help estimate how much of a person's weight is composed of fat. BMI can help identify thosewho may be at higher risk for certain medical problems. BMI can be measured using Micronesian measurements or metric measurements. BMI charts are used to identify whether you are underweight, normal weight, overweight, or obese. This information is not intended to replace advice given to you by your health care provider. Make sure you discuss any questions you have with your health care provider. Document Revised: 01/07/2020 Document Reviewed: 11/14/2019 [employer] Patient Education 2022 [employer]. Follow Up Care 10/23/2023 08:49:41 With:Lourdes Urrutia Address: [address] [place] [address], [facility] [place] [address]- When: only if needed [facility] 05-31-2024 Hospital Discharge [...] Follow these instructions at home: Medicines Take qvpf-rcb-dunbjon and prescription medicines only as told by [...] Watch your condition for any changes. Take xemt-wdq-lvlpwml and prescription medicines only as told by [...] provider. Document Revised: 06/04/2020 Document Reviewed: 08/25/2019 [employer] Patient Education 2022 [employer]. Follow Up Care 09/28/2023 18:22:59 With:Penelope CASAS Address: [address], [place] [address]- Business (1) When:Within 3 Day(s) [facility]05-31-2024 Hospital Discharge instructions Patient Education 09/28/2023 18:24:44 [...] numbers. This can be done either in Micronesian (U.S.) or metric measurements. Note that charts and online BMI calculators are available to help you find your BMI quickly and easily without having to do these calculations yourself. To calculate your BMI in Micronesian ([place].S.) measurements: 1.Measure your weight in pounds [...] Centers for Disease Control and Prevention: www.cdc.gov [place] Heart Association: www.heart.org National Heart, Lung, and Blood [place]: www.nhlbi.nih.gov Summary Body mass index (BMI) is a number that is calculated from a person's weight and height. BMI may help estimate how much of a person's weight is composed of fat. BMI can help identify thosewho may be at higher risk for certain medical problems. BMI can be measured using Micronesian measurements or metric measurements. BMI charts are used to identify whether you are underweight, normal weight, overweight, or obese. This information is not intended to replace advice given to you by your health care provider. Make sure you discuss any questions you have with your health care provider. Document Revised: 01/07/2020 Document Reviewed: 11/14/2019 [employer] Patient Education 2022 [employer]. 09/28/2023 18:24:42 Hypertension, Adult, Mryg-ju-Cyog Hypertension, Adult Hypertension is another name for [...] doctor. Keep all follow-up visits. Medicines Take cfks-zkx-ikpaijk and prescription medicines only as told by [...] provider. Document Revised: 02/02/2022 Document Reviewed: 02/02/2022 [employer] Patient Education 2022 [employer]. 09/28/2023 18:24:32 Abdominal Pain, Adult, Czmt-vr-Mxsl Abdominal Pain, Adult Many things can cause belly (abdominal) pain. Most times, belly pain is not dangerous. Many cases of belly pain can be watched and treated at home. Sometimes, though, belly pain is serious. Your doctor will try to find the cause of your belly pain. Follow these instructions at home: Medicines Take maid-vcw-texqgyv and prescription medicines only as told by [...] your belly pain for any changes. Take cvgb-dcx-ulvimkh and prescription medicines only as told by [...] provider. Document Revised: 08/25/2019 Document Reviewed: 08/25/2019 [employer] Patient Education 2022 [employer]. Follow Up Care 09/28/2023 16:11:11 With:Emergency room Address: When: only if needed Comments:Patient was instructed to contact emergency room for any worsening abdominal pain, concerns, or complications. [facility] 05-31-2024 Evaluation + Plan [...] Open Future Scheduled Tests Laboratory* HgbA1c 08/03/23 [facility]05-30-2024 Telephone encounter Note* Telephone Encounter - Divine Roberta - 09/27/2023 4:38 PM EDT Attempt has been made x2 to reschedule patient. She did not have labs drawn. Roberta Haskins [facility] Miscellaneous Notes* Telephone Encounter - JocelynelesterRoberta - 09/27/2023 4:38 PM EDT Attempt has been made x2 to reschedule patient. She did not have labs drawn. Roberta Haskins documented in this encounterMarion Hospital05-29-2024 History of Present illness Narrative* Kristofer Calix MD - 09/26/2023 9:11 AM EDT Did not have labs done to prep for this visit - reschedule. Kristofer Calix MD documented in this encounterMarion Hospital04-05-2024 Hospital Discharge instructions Patient Education 08/03/2023 [...] your health care provider or diet and certified nutritionist (dietitian). This may include: ?Eating fewer calories. [...] provider. Document Revised: 06/12/2021 Document Reviewed: 06/12/2021 [employer] Patient Education 2022 [employer]. Follow Up Care 02/15/2023 10:07:52 With:PRAVEEN RESENDEZ FAAFP, Penelope Tony, CHRIS, PED Address: [address], [place] [address]- When:Within 4 Month(s) [facility] 04-05-2024 Evaluation + Plan note Future Scheduled Tests Laboratory* HgbA1c 08/03/23 Radiology* CT Soft Tissue Neck w/ Contrast 11/12/23 [facility] 02-22-2024 Hospital Discharge [...] or if there is an kennedy for [employer]. Most glucose meters store a record of [...] mayhave. Where to find more information The [place] Diabetes Association: www.diabetes.org The Association of Diabetes [...] provider. Document Revised: 01/12/2021 Document Reviewed: 01/12/2021 [employer] Patient Education 2022 [employer]. 06/21/2023 06:07:34 Preventing Iron Deficiency Anemia, Adult [...] iron. Foods high in vitamin C include: ?Crum fruits, such as tai, oranges, and grapefruits. [...] iron supplement is right for you. Take unie-fft-ciaopab and prescription medicines only as told by your health care provider. Keep all follow-up visits. Where to find more information Learn more about preventing iron deficiency from: National Heart, Lung, and Blood [place]: www.nhlbi.nih.gov [place] Society of Hematology: www.hematology.org Contact a health [...] provider. Document Revised: 05/24/2022 Document Reviewed: 05/24/2022 [employer] Patient Education 2022 [employer]. 06/21/2023 06:07:28 BMI for Adults BMI for [...] numbers. This can be done either in Micronesian (U.S.) or metric measurements. Note that charts and online BMI calculators are available to help you find your BMI quickly and easily without having to do these calculations yourself. To calculate your BMI in Micronesian (U.S.) measurements: 1.Measure your weight in pounds [...] Centers for Disease Control and Prevention: www.cdc.gov [place] Heart Association: www.heart.org National Heart, Lung, and Blood [place]: www.nhlbi.nih.gov Summary Body mass index (BMI) is a number that is calculated from a person's weight and height. BMI may help estimate how much of a person's weight is composed of fat. BMI can help identify thosewho may be at higher risk for certain medical problems. BMI can be measured using Micronesian measurements or metric measurements. BMI charts are used to identify whether you are underweight, normal weight, overweight, or obese. This information is not intended to replace advice given to you by your health care provider. Make sure you discuss any questions you have with your health care provider. Document Revised: 01/07/2020 Document Reviewed: 11/14/2019 [employer] Patient Education 2022 [employer]. Follow Up Care 06/19/2023 13:39:56 With:PRAVEEN RESENDEZ FAAFP, Penelope Tony, CHRIS, PED Address: [address] [place] [id number]- When: Unknown [facility] 02-20-2024 Miscellaneous Notes* Telephone Encounter - Rachael Johnson RN - 06/19/2023 1:05 PM EST Pt called back and aware of Fely's message. She is agreeable to POC and denies further needs at thistime. She will call PCP to follow up on TSH Rachael Johnson RN * Telephone Encounter - Rachael Johnson RN - 06/19/2023 12:26 PM EST [employer] message sent Rachael Johnson RN * Telephone [...] lab results Roberta Haskins documented in this encounterMarion Hospital02-16-2024 Instructions* Patient Instructions* Nathaly Carney - [...] TSH, Calcium with CMP documented in this encounterMarion Hospital02-16-2024 Nurse Note* Serina Horton MA - [...] exercise. Serina Dawson MA documented in this encounterMarion Hospital02-16-2024 History of Present illness Narrative* Kristofer Calix MD - 06/15/2023 2:00 PM EST Images from the original note were not included. NAME: Sanna Rendon CLINIC NO.: [id number] DATE OF SERVICE: June 15, 2023 (Levon) [...] later in 2018. These were found in [place], [place]. I don't have access to these [...] Monge soon. When she hada stoke in [place], she had symptoms up to a month [...] and stayed on Lovenox Hgb 13.1 @ [facility] Recommended ER if persisting [...] and at age 69. Both lived in [facility] but she was adopted. She was not able to see ID in October and will be seeing Dr. Baugh next week. Also will have her see Dr. Hamlin for her clotting disorder and make any other recommendations to optimize her treatment. Updated Visit, October 08, 2020: Telephone only Received call from pt stating she was seen in [facility] ER for numbness in her chest, throat, and extremities, and sob which has been worsening over the last week. We arranged a telephone visit for her franci questions with me. Sanna Rendon is a 34 year old female seen for Hypercoagulable state and recent concerns and symptoms that required her to be seen at [facility] ER. She went to the ER with Gradual worsening of breathing after progressive tingling of fingers and legs. She currently remains very fatigued even though she is sleeping well. Now recalls that before her stroke she remembers having a bull's eye rash and was seen with severe headaches in [facility] was found to have a stroke in [...] a root canal and was sent to [facility] for MRI which was [...] history goes back to January 2016 in [facility] where she had persisting headaches and slurred speech followed by lower extremity weakness. This took a few months to resolve and she is back to her normal state of being but some point in time during her her next she was seen by Dr. Humera Hyde in [place] as well and was found to have [...] which included preparing to see the patient, xqyi-xi-gbyl patient care, completing clinical documentation, performing a medically appropriate examination, counseling and educating the patient/family/caregiver, ordering medications, tests, or p rocedures, independently interpreting results (not separately reported), communicating results to the patient/family/caregiver, and care coordination (not separately reported). Kristofer Calix MD, CPE Hematology and Oncology Services Provided at: [place], [place] Scribe Attestation: This note was scribed [...] under my direction. CC: MD Wilton Day, [address] [place] [address] Humaira Gaviria MD [address] [place] [id number] MD Cosmo Kingston MD Michael Blank, MD documented in this encounterMarion Hospital02-12-2024 Miscellaneous Notes* Telephone Encounter - Ebony Redding Ma - 06/11/2023 10:43 AM EST Labs for appointment on 06/15. Ebony Redding Ma documented in this encounterMarion Hospital02-12-2024 Miscellaneous Notes* Telephone Encounter - Nicol [...] Nicol Salgado * [facility] 06/06/2023 8:37 AM EST Records [...] since she was last seen by him. [facility] [address] [facility], Myrtle Bhavna, Please fax records Andres, Please follow up on this appt. Thank you documented in this encounterMarion Hospital02-01-2024 History of Present illness Narrative* Kristofer Calix MD - 05/31/2023 4:30 PM EST Images from the original note were not included. NAME: Sanna Rendon CLINIC NO.: [id number] DATE OF SERVICE: May 31, 2023 (Levon) Some elements in this clinic note that are critical to medical decision making have been carefully reviewed and included from a prior clinic note dated: March 19, 2023 (Levon) Additional Clinicians involved in Sanna Rendon's care: Drs. Herrmann, Jorge Monge, Humaira Gaviria, VIRTUAL VISIT PROGRESS NOTE This is a virtual visit using [employer] Zoom Video Visit. It required patient- provider interaction for the medical decision making as documented below. I have communicated my name and active licensure. The patient's identity and physical location wereverified at the time of this visit. Either the patient or their legal credit and collections representative has been informed of the risks and benefits of -- and alternatives to -- treatment through a remote evaluation andconsents to proceed with the evaluation remotely. CC: hypercoag state. ASSESSMENT: 37 year old woman 25 weeks presents with a prior history of CVA in 2016 and anantiphospholipid antibody that was identified much later in 2018. These were found in [place], [place]. I don't have access to these [...] and stayed on Lovenox Hgb 13.1 @ [facility] Recommended ER if persisting [...] and at age 69. Both lived in [facility] but she was adopted. She was not able to see ID in October and will be seeing Dr. Baugh next week. Also will have her see Dr. Hamlin for her clotting disorder and make any other recommendations to optimize her treatment. Updated Visit, October 08, 2020: Telephone only Received call from pt stating she was seen in [facility] ER for numbness in her chest, throat, and extremities, and sob which has been worsening over the last week. We arranged a telephone visit for her franci questions with me. Sanna Rendon is a 34 year old female seen for Hypercoagulable state and recent concerns and symptoms that required her to be seen at [facility] ER. She went to the ER with Gradual worsening of breathing after progressive tingling of fingers and legs. She currently remains very fatigued even though she is sleeping well. Now recalls that before her stroke she remembers having a bull's eye rash and was seen with severe headaches in [facility] was found to have a stroke in [...] a root canal and was sent to [facility] for MRI which was [...] history goes back to January 2016 in [facility] where she had persisting headaches and slurred speech followed by lower extremity weakness. This took a few months to resolve and she is back to her normal state of being but some point in time during her her next she was seen by Dr. Humera Hyde in [place] as well and was found to have [...] CPE Hematology and Oncology Services Provided at: [place], [place] CC: MD Wilton Day, [address] [place] [address] Humaira Gaviria MD [address] [place] [id number] MD Cosmo Kingston MD Michael Blank, MD documented in this encounterMarion Hospital02-01-2024 Instructions* Patient Instructions* Kristofer Calix MD [...] TSH, Calcium with CMP documented in this encounterMarion Hospital01-26-2024 Hospital Discharge instructions Patient Education 05/25/2023 [...] your ears completely after. General instructions Take zfdk-dlj-jlvkxiv and prescription medicines only as told by [...] provider. Document Revised: 06/27/2021 Document Reviewed: 06/27/2021 [employer] Patient Education 2022 [employer]. 05/25/2023 12:02:06 Dyshidrotic Eczema Dyshidrotic Eczema Dyshidrotic [...] care provider who specializes in skin conditions (grounds maintenance worker) tohelp diagnose and treat this condition. How [...] locks in moisture. Medicines Take and apply abnr-zzn-ftevtqc and prescription medicines only as told by [...] provider. Document Revised: 01/24/2021 Document Reviewed: 01/24/2021 [employer] Patient Education 2022 [employer]. 05/25/2023 12:02:02 Allergies, Adult, Wirh-hb-Bjtm Allergies, Adult An allergy means that your [...] instructions at home: Medicines Take or apply zxis-yle-jywroba and prescription medicines only as told by [...] to the hospital. Summary Take or apply urcw-kym-oknxfng and prescription medicines only as told by [...] provider. Document Revised: 02/25/2020 Document Reviewed: 02/25/2020 [employer] Patient Education 2022 [employer]. Follow Up Care 05/21/2023 12:21:27 With:PRAVEEN RESENDEZ FAAFP, Penelope Tony, CHRIS, PED Address: [facility] [address], [place] [address]- When:Within 2 Month(s) [facility] 11-20-2023 History of Present illness Narrative* Kristofer Calix MD - 03/19/2023 4:45 PM EST Images from the original note were not included. NAME: Sanna Rendon CLINIC NO.: [id number] DATE OF SERVICE: March 19, 2023 (Levon) [...] visit. Either the patient or their legal credit and collections representative has been informed of the risks and benefits of -- and alternatives to -- treatment through a remote evaluation andconsents to proceed with the evaluation remotely. CC: hypercoag state. ASSESSMENT: 37 year old woman 25 weeks presents with a prior history of CVA in 2016 and anantiphospholipid antibody that was identified much later in 2018. These were found in [place], [place]. I don't have access to these [...] and stayed on Lovenox Hgb 13.1 @ [facility] Recommended ER if persisting [...] and at age 69. Both lived in [facility] but she was adopted. She was not able to see ID in October and will be seeing Dr. Baugh next week. Also will have her see Dr. Hamlin for her clotting disorder and make any other recommendations to optimize her treatment. Updated Visit, October 08, 2020: Telephone only Received call from pt stating she was seen in [facility] ER for numbness in her chest, throat, and extremities, and sob which has been worsening over the last week. We arranged a telephone visit for her chanw questions with me. Sanna Rendon is a 34 year old female seen for Hypercoagulable state and recent concerns and symptoms that required her to be seen at [facility] ER. She went to the ER with Gradual worsening of breathing after progressive tingling of fingers and legs. She currently remains very fatigued even though she is sleeping well. Now recalls that before her stroke she remembers having a bull's eye rash and was seen with severe headaches in [facility] was found to have a stroke in [...] a root canal and was sent to [facility] for MRI which was [...] history goes back to January 2016 in [facility] where she had persisting headaches and slurred speech followed by lower extremity weakness. This took a few months to resolve and she is back to her normal state of being but some point in time during her her next she was seen by Dr. Humera Hyde in [place] as well and was found to have [...] CPE Hematology and Oncology Services Provided at: [place], [place] CC: MD Wilton Day, [address] [place] [address] Humaira Gaviria MD [address] [place] [id number] MD Cosmo Kingston MD Michael Blank, MD documented in this encounterMarion Hospital11-20-2023 Instructions* Patient Instructions* Kristofer Calix MD - 03/19/2023 4:44 PM EST Continue Lovenox - patient prefers 40 mg (rather than rec 80mg) Take B12 supplement in the form of a sublingual tablet. Take Vitamin D3 5000 international unit(s) daily Check labs in 8 weeks Phone / Virtual call after documented in this encounterMarion Hospital10-19-2023 Hospital Discharge instructions Patient Education 02/15/2023 10:13:08 Ear Drops, Adult, Alwz-ho-Ifqa Ear Drops, Adult Your doctor has found [...] cannot use soap and water, use hand final inspector truck trailer. 2.Make sure your ears are clean and [...] you cannot use soapand water, use hand final inspector truck trailer. Follow these instructions at home: Use the [...] provider. Document Revised: 02/11/2020 Document Reviewed: 02/11/2020 [employer] Patient Education 2022 [employer] 02/15/2023 10:13:05 Otitis Externa, Luiu-gh-Zqac Otitis Externa Otitis externa is an infection [...] if you start to feel better. Take tiqv-lxz-kwdbzcs and prescription medicines only as told by [...] provider. Document Revised: 06/29/2021 Document Reviewed: 06/29/2021 [employer] Patient Education 2022 [employer]. Follow Up Care 02/14/2023 12:28:12 With:PRAVEEN RESENDEZ FAAFP, Penelope Tony, CHRIS, PED [facility] [address] [facility] [place] [address]- When:Within 2 Month(s) [facility] 08-25-2023 Hospital Discharge [...] including vitamins, herbs, eye drops, creams, and svvz-vdc-zhjvlvm medicines. ?Whether you are or may be [...] provider. Document Revised: 12/28/2021 Document Reviewed: 11/19/2020 [employer] Patient Education 2022 [employer]. 12/22/2022 15:19:23 Fatigue Fatigue If you have [...] Follow these instructions at home: Medicines Take veav-vcx-xrgcbiv and prescription medicines only as told by [...] the National Suicide Prevention Lifeline at or 678. This is open 24 hours a day. Text the Crisis Text Line at 222808. Summary If you have fatigue, you feel [...] provider. Document Revised: 02/06/2022 Document Reviewed: 02/06/2022 [employer] Patient Education 2022 [employer]. Follow Up Care 12/22/2022 10:22:02 With:Lourdes Urrutia Address: [facility] [address] [place], [facility] [place] [address]- When: only if needed [facility] 08-25-2023 Instructions* Patient Instructions* Kristofer Calix MD - 12/22/2022 10:13 AM EDT Continue Lovenox - patient prefers 40 mg (rather than rec 80mg) Take B12 supplement in the form of a sublingual tablet. Take Vitamin D3 5000 international unit(s) daily Check labs in 8 weeks Phone / Virtual call after documented in this encounterMarion Hospital08-25-2023 History of Present illness Narrative* Kristofer Calix MD - 12/22/2022 9:55 AM EDT Images from the original note were not included. Kristofer Calix MD NAME: Sanna Rendon CLINIC NO.: [id number] DATE OF SERVICE: December 22, 2022 (Levon) [...] visit. Either the patient or their legal credit and collections representative has been informed of the risks and benefits of -- and alternatives to -- treatment through a remote evaluation andconsents to proceed with the evaluation remotely. CC: hypercoag state. ASSESSMENT: 37 year old woman with a prior history of CVA in 2016 and an antiphospholipid antibody that was identified much later in 2018. These were found in [place], [place]. I don't have access to these [...] and stayed on Lovenox Hgb 13.1 @ [facility] Recommended ER if persisting [...] and at age 69. Both lived in [facility] but she was adopted. She was not able to see ID in October and will be seeing Dr. Baugh next week. Also will have her see Dr. Hamlin for her clotting disorder and make any other recommendations to optimize her treatment. Updated Visit, October 08, 2020: Telephone only Received call from pt stating she was seen in [facility] ER for numbness in her chest, throat, and extremities, and sob which has been worsening over the last week. We arranged a telephone visit for her franci questions with me. Sanna Rendon is a 34 year old female seen for Hypercoagulable state and recent concerns and symptoms that required her to be seen at [facility] ER. She went to the ER with Gradual worsening of breathing after progressive tingling of fingers and legs. She currently remains very fatigued even though she is sleeping well. Now recalls that before her stroke she remembers having a bull's eye rash and was seen with severe headaches in [place], [place] - was found to have a [...] a root canal and was sent to [facility] for MRI which was [...] history goes back to January 2016 in [facility] where she had persisting headaches and slurred speech followed by lower extremity weakness. This took a few months to resolve and she is back to her normal state of being but some point in time during her her next she was seen by Dr. Humera Hyde in [place] as well and was found to have [...] CPE Hematology and Oncology Services Provided at: [place], [place] CC: MD Wilton Day, [address] [place] [address] Humaira Gaviria MD [address] [facility] [id number] MD Cosmo Kingston MD Michael Blank, MD documented in this encounterMarion Hospital08-16-2023 Miscellaneous Notes* Telephone Encounter - Roberta [...] later time. Roberta Haskins documented in this encounterMarion Hospital06-23-2023 Hospital Discharge instructions Patient Education 10/20/2022 [...] your health care provider or diet and certified nutritionist (dietitian). This may include: ?Eating fewer calories. [...] provider. Document Revised: 06/12/2021 Document Reviewed: 06/12/2021 [employer] Patient Education 2022 [employer]. 10/20/2022 10:37:18 Preventing Type 2 Diabetes Mellitus [...] with a registered dietitian. This diet and certified nutritionist can help you make a healthy eating plan and help you understand portion sizes and food labels. Where to find support Ask your health care provider to recommend a registered dietitian, a certified diabetes care and computer education professor, or a weight loss program. Look for local or online weight loss groups. Join a gym, fitness club, or outdoor activity group, such as a walking club. Where to find more information For help and guidance and to learn more about diabetes and diabetes prevention, visit: [place] Diabetes Association (ADA): www.diabetes.org National [place] of Diabetes and Digestive and Kidney Diseases: [...] provider. Document Revised: 07/11/2021 Document Reviewed: 07/11/2021 [employer] Patient Education 2022 [employer]. 10/20/2022 10:37:17 Preventing Hypoglycemia Preventing Hypoglycemia Hypoglycemia [...] your hypoglycemia. Where to find more information [place] Diabetes Association: www.diabetes.org National [place] of Diabetes and Digestive and Kidney Diseases: [...] provider. Document Revised: 03/17/2021 Document Reviewed: 03/17/2021 [employer] Patient Education 2022 [employer]. 10/20/2022 10:37:16 Gestational Diabetes Mellitus, Diagnosis, Emtu-ok-Ccxa Gestational Diabetes Mellitus, Diagnosis Gestational diabetes mellitus [...] follow-up visits. Where to find more information [place] Diabetes Association (ADA): diabetes.org Association of Diabetes Care & Education Specialists (ADCES): diabeteseducator.org Centers for Disease Control and Prevention (CDC): cdc.gov [place] Association: americanpregnancy.org U.S. Department of Agriculture MyPlate: [...] provider. Document Revised: 09/20/2020 Document Reviewed: 09/20/2020 [employer] Patient Education 2022 [employer]. Follow Up Care 09/19/2022 14:47:09 With:PRAVEEN RESENDEZ FAAFP, CHRIS Perez, PED Address: [place] [address]- When:Within 3 Month(s) [facility] 06-01-2023 History of Present illness Narrative* Kristofer Calix MD - 09/28/2022 5:00 PM EDT Images from the original note were not included. Kristofer Calix MD NAME: Sanna Rendon CLINIC NO.: [id number] DATE OF SERVICE: September 28, 2022 (Levon) [...] visit. Either the patient or their legal credit and collections representative has been informed of the risks and benefits of -- and alternatives to -- treatment through a remote evaluation andconsents to proceed with the evaluation remotely. CC: hypercoag state. ASSESSMENT: 36 year old woman 25 weeks presents with a prior history of CVA in 2016 and anantiphospholipid antibody that was identified much later in 2018. These were found in [place], [place]. I don't have access to these [...] and stayed on Lovenox Hgb 13.1 @ [facility] Recommended ER if persisting [...] and at age 69. Both lived in [facility] but she was adopted. She was not able to see ID in October and will be seeing Dr. Baugh next week. Also will have her see Dr. Hamlin for her clotting disorder and make any other recommendations to optimize her treatment. Updated Visit, October 08, 2020: Telephone only Received call from pt stating she was seen in [facility] ER for numbness in her chest, throat, and extremities, and sob which has been worsening over the last week. We arranged a telephone visit for her toreview questions with me. Sanna Rendon is a 34 year old female seen for Hypercoagulable state and recent concerns and symptoms that required her to be seen at [facility] ER. She went to the ER with Gradual worsening of breathing after progressive tingling of fingers and legs. She currently remains very fatigued even though she is sleeping well. Now recalls that before her stroke she remembers having a bull's eye rash and was seen with severe headaches in [place], [place] - was found to have a [...] a root canal and was sent to [facility] for MRI which was [...] history goes back to January 2016 in [facility] where she had persisting headaches and slurred speech followed by lower extremity weakness. This took a few months to resolve and she is back to her normal state of being but some point in time during her her next she was seen by Dr. Humera Hyde in [place] as well and was found to have [...] video enabled technology) No exam performed Kristofer Calxi MD, CPE Hematology [facility] Oncology Services Provided at: [place], [place] CC: MD Wilton Day, [address] [place] [address] Humaira Gaviria MD [address] [place] [address] [place] [address] MD Cosmo Kingston MD Michael Blank, MD documented in this encounterMarion Hospital05-24-2023 Miscellaneous Notes* Telephone Encounter - Cheri Acharya Sec - 09/20/2022 7:06 AM EDT Cxed appt * Telephone Encounter - Valeri Yeung RN - 09/19/2022 3:29 PM EDT Patient would like to have labs drawn at [facility]. Called [facility] lab to get fax number. Lab orders faxed to [phone] Valeri Yeung RN PSS: Can you cancel lab appointment for 09/21/22 here. Thanks. Valeri Yeung RN documented in this encounterMarion Hospital04-04-2023 Instructions* Patient Instructions* Kristofer Calix MD - 08/01/2022 10:56 AM EDT Continue Lovenox - patient prefers 40 mg (rather than rec 80mg) 8 weeks - labs Phone / Virtual call after documented in this encounterMarion Hospital03-30-2023 History of Present illness Narrative* Kristofer Calix MD - 07/27/2022 1:18 PM EDT NAME: Sanna Rendon CLINIC NO.: [id number] DATE OF SERVICE: July 27, 2022 (Levon) [...] later in 2018. These were found in [place], [place]. I don't have access to these [...] and at age 69. Both lived in [facility] but she was adopted. She was not able to see ID in October and will be seeing Dr. Baugh next week. Also will have her see Dr. Hamlin for her clotting disorder and make any other recommendations to optimize her treatment. Updated Visit, October 08, 2020: Telephone only Received call from pt stating she was seen in [facility] ER for numbness in her chest, throat, and extremities, and sob which has been worsening over the last week. We arranged a telephone visit for her domingoeview questions with me. Sanan Rendon is a 34 year old female seen for Hypercoagulable state and recent concerns and symptoms that required her to be seen at [facility] ER. She went to the ER with Gradual worsening of breathing after progressive tingling of fingers and legs. She currently remains very fatigued even though she is sleeping well. Now recalls that before her stroke she remembers having a bull's eye rash and was seen with severe headaches in [place], [place] - was found to have a [...] a root canal and was sent to [facility] for MRI which was [...] history goes back to January 2016 in [facility] where she had persisting headaches and slurred speech followed by lower extremity weakness. This took a few months to resolve and she is back to her normal state of being but some point in time during her her next she was seen by Dr. Humera Hyde in [place] as well and was found to have [...] which included preparing to see the patient, heja-lk-iujn patient care, completing clinical documentation, obtaining and/or reviewing separately obtained history, performing a medically appropriate examination, counseling and educating the pat ient/family/caregiver, ordering medications, tests, or procedures, independently interpreting results (not separately reported), and care coordination (not separately reported). Kristofer Calix MD, CPE Hematology and Oncology Services Provided at: [place], [place] CC: MD Wilton Day, [address] [place] [address] Humaira Gaviria MD [address] [facility] [id number] MD Cosmo Kingston MD Michael Blank, MD documented in this encounterMarion Hospital12-07-2022 History of Present illness Narrative* Alison [...] to standard infusion rate. documented in this encounterMarion Hospital12-06-2022 Miscellaneous Notes* Telephone Encounter - Marleen [...] agreeable. Meme Gonzalez RN documented in this encounterMarion Hospital12-01-2022 Miscellaneous Notes* Telephone Encounter - Roberta Haskins - 03/30/2022 1:23 PM EST Attempted to contact patient again, no answer. Left another message. Roberta Haskins * Telephone Encounter - Robetra Haskins - 03/28/2022 2:32 PM EST Patient [...] the original note were not included. Kristofer Claix MD [facility] Triage Pool; [facility] Clerical Pool She needs iron MUNIRA - if monoferric isn't approved, lets get her in weekly for Venna for. * Telephone Encounter - Roberta Haskins - 03/27/2022 2:57 PM EST 2. Consider IV iron a. Triage nurse to please call iron results when available this week documented in this encounterMarion Hospital11-28-2022 Instructions* Patient Instructions* Kristofer Calix MD - 03/27/2022 2:51 PM EST Continue Lovenox - patient prefers 40 mg (rather than rec 80mg) Consider IV iron Triage nurse to please call iron results when available this week Will recheck antiphospholipid antibodies as ordered and every 6 months. RTC in 8 weeks - labs same day. documented in this encounterMarion Hospital11-28-2022 History of Present illness Narrative* Kristofer Calix MD - 03/27/2022 2:15 PM EST Images from the original note were not included. NAME: Sanna Rendon CLINIC NO.: [id number] DATE OF SERVICE: March 27, 2022 (radhaelaina) [...] later in 2018. These were found in [place], [place]. I don't have access to these [...] and at age 69. Both lived in [facility] but she was adopted. She was not able to see ID in October and will be seeing Dr. Baugh next week. Also will have her see Dr. Hamlin for her clotting disorder and make any other recommendations to optimize her treatment. Updated Visit, October 08, 2020: Telephone only Received call from pt stating she was seen in [facility] ER for numbness in her chest, throat, and extremities, and sob which has been worsening over the last week. We arranged a telephone visit for her chanw questions with me. Sanna Rendon is a 34 year old female seen for Hypercoagulable state and recent concerns and symptoms that required her to be seen at [facility] ER. She went to the ER with Gradual worsening of breathing after progressive tingling of fingers and legs. She currently remains very fatigued even though she is sleeping well. Now recalls that before her stroke she remembers having a bull's eye rash and was seen with severe headaches in [place], [place] - was found to have a [...] a root canal and was sent to [facility] for MRI which was [...] history goes back to January 2016 in [facility] where she had persisting headaches and slurred speech followed by lower extremity weakness. This took a few months to resolve and she is back to her normal state of being but some point in time during her her next she was seen by Dr. Humera Hyde in [place] as well and was found to have [...] which included preparing to see the patient, teuq-rn-lfgm patient care, completing clinical documentation, obtaining and/or reviewing separately obtained history, performing a medically appropriate examination, counseling and educating the pat ient/family/caregiver, ordering medications, tests, or procedures, independently interpreting results (not separately reported), and care coordination (not separately reported). Kristofer Calix MD, CPE Hematology and Oncology Services Provided at: [place], [place] CC: MD Wilton Day, [address] [place] [address] Humaira Gaviria MD [address] [place] [id number] MD Cosmo Kingston MD Michael Blank, MD documented in this encounterMarion Hospital10-03-2022 Instructions* Patient Instructions* Kristofer Calix MD - 01/30/2022 12:[address] Hamlin's expertise and will prescribe Lovenox - patient prefers 40 mg (rather than rec 80mg) Will recheck antiphospholipid antibodies as ordered and every 6 months. RTC in 8 weeks - labs same day. documented in this encounterMarion Hospital10-03-2022 History of Present illness Narrative* Kristofer Calix MD - 01/30/2022 11:59 AM EDT Images from the original note were not included. NAME: Sanna Rendon CLINIC NO.: [id number] DATE OF SERVICE: January 30, 2022 Some [...] later in 2018. These were found in [place], [place]. I don't have access to these [...] and at age 69. Both lived in [facility] but she was adopted. She was not able to see ID in October and will be seeing Dr. Baugh next week. Also will have her see Dr. Hamlin for her clotting disorder and make any other recommendations to optimize her treatment. Updated Visit, October 08, 2020: Telephone only Received call from pt stating she was seen in [facility] ER for numbness in her chest, throat, and extremities, and sob which has been worsening over the last week. We arranged a telephone visit for her chanw questions with me. Sanna Rendon is a 34 year old female seen for Hypercoagulable state and recent concerns and symptoms that required her to be seen at [facility] ER. She went to the ER with Gradual worsening of breathing after progressive tingling of fingers and legs. She currently remains very fatigued even though she is sleeping well. Now recalls that before her stroke she remembers having a bull's eye rash and was seen with severe headaches in [facility] was found to have a stroke in [...] a root canal and was sent to [facility] for MRI which was [...] history goes back to January 2016 in [facility] where she had persisting headaches and slurred speech followed by lower extremity weakness. This took a few months to resolve and she is back to her normal state of being but some point in time during her her next she was seen by Dr. Humera Hyde in [place] as well and was found to have [...] which included preparing to see the patient, [id number] patient care, completing clinical documentation, obtaining and/or reviewing separately obtained history, performing a medically appropriate examination, counseling and educating the pat ient/family/caregiver, and ordering medications, tests, or procedures. Kristofer Calix MD, [place], [place] CC: MD Chalino Dayy Jeanine Herrmann, [address] [place] [address] Humaira Gaviria MD [address] [place] [id number] MD Cosmo Kingston MD Michael Blank, MD documented in this encounterMar[facility]10-03-[facility]22 Nurse Note* Serina Dawson MA - 01/30/2022 11:55 AM EDT Patient states she may be diagnosed with gestational diabetes, she was from 215 to 52 a couple hours later after eating wheat cereal. She sees OB tomorrow. Serina Dawson MA documented in this encounterMarion Hospital09-02-2022 Miscellaneous Notes* Telephone Encounter - Tonja Pope RN - 12/30/2021 10:15 AM EDT Call received from Sanna requesting refill of Lovenox 40 mg to be sent to [facility] in [place]. FELY: Please review and approve if you agree. Tonja Chery RN documented in this encounterMarion Hospital06-13-2022 Miscellaneous Notes* Telephone Encounter - Meme Easton RN - 10/10/2021 12:15 PM EDT Received call from pt requesting refill of Lovenox 40 mg to be sent to [facility] in [place]. FELY: Pt also states she had one episode of blood in her stool which was dripping blood which concerned her. She is not ready to move to 80 mg of Lovenox at this time. Order pending. Please review and sign if agreeable. Meme Easton RN documented in this encounterMarion Hospital05-10-2022 Miscellaneous Notes* Telephone Encounter - Kristofer [...] agreeable. Meme Easton RN documented in this encounterMarion Hospital05-09-2022 Miscellaneous Notes* Telephone Encounter - Meme [...] advise. Meme Easton RN documented in this encounterMarion Hospital04-25-2022 Miscellaneous Notes* Telephone Encounter - Meme [...] Thoughts? Meme Easton RN documented in this encounterMarion Hospital04-22-2022 Hospital Discharge instructions Patient Education 08/19/2021 [...] including vitamins, herbs, eye drops, creams, and cesv-jtn-ayqjlrw medicines. ?Whether you are or may be [...] 02/11/2008 Document Revised: 08/05/2019 Document Reviewed: 02/18/2018 [employer] Patient Education 2020 [employer] 08/19/2021 13:02:21 Dysuria Dysuria Dysuria is [...] alcohol may irritate the prostate. Medicines Take ylur-aax-mtnwymf and prescription medicines only as told by [...] 01/12/2005 Document Revised: 03/29/2018 Document Reviewed: 01/31/2018 [employer] Patient Education 2020 [employer]. 08/19/2021 13:02:17 Budget-Friendly Healthy Eating Budget-Friendly Healthy [...] frozen fruits, and frozen vegetables. Avoid buying daqbg-me-aze foods, such as pre-cut fruits and vegetables [...] 12/18/2014 Document Revised: 04/17/2018 Document Reviewed: 04/17/2018 [employer] Patient Education 2020 [employer]. 08/19/2021 13:02:15 BMI for Adults BMI for [...] height. This can be done either in Micronesian ([place] or metric measurements. Note that charts are available to help you find your BMI quickly and easily without having to do these calculations yourself. To calculate your BMI in Micronesian ([place] measurements, your health care provider will: [...] medical problems. BMI can be measured using Micronesian measurements or metric measurements. To interpret your [...] 12/26/2004 Document Revised: 03/29/2018 Document Reviewed: 02/27/2018 [employer] Patient Education 2020 [employer]. 08/19/2021 13:02:11 Paresthesia Paresthesia Paresthesia is an [...] fried or sweet foods. General instructions Take ubuh-vcx-mdwmnpp and prescription medicines only as told by [...] 04/06/2003 Document Revised: 05/12/2019 Document Reviewed: 04/25/2018 [employer] Patient Education 2020 [employer]. Follow Up Care 08/19/2021 09:17:52 With:PRAVEEN RESENDEZ FAAFP, Penelope Tony, CHRIS, PED Address: [address], [place] [address]- When:1 to 2 weeks [facility] 04-22-2022 Evaluation + Plan note Future Scheduled Tests Radiology* XR Spine Lumbosacral Minimum 4 Views 08/19/21 [facility]04-07-2022 Miscellaneous Notes* Telephone Encounter - Roberta Haskins - 08/04/2021 3:36 PM EDT Patient is scheduled for 09/[address] Elliott. Roberta Haskins * Telephone Encounter - Roberta Divine - 08/01/2021 1:05 PM EDT Sent Email to [facility] to refer patient back to Dr. Cosmo Elliott Dx: Primary hypercoagulable state (HCC) Roberta Divine documented in this encounterMarion Hospital04-04-2022 Nurse Note* Ebony Redding Ma - 08/01/2021 12:48 PM EDT UA ran as ordered. Ebony Redding Ma documented in this encounterMarion Hospital03-28-2020 Evaluation + Plan note Future Appointments Appointment Date:07/25/2024 02:30:00 PM Scheduled Provider: [facility] Appoint[facility] Type:CV EKG (FT) Appointment Date:07/25/2024 03:00:00 PM Scheduled Provider: [facility] Appointment Type:CV Holter/Event (FT) Appointment Date:09/09/2024 08:20:00 AM Scheduled Provider:Penelope CASAS DO, FAAFP Location:[facility] Appointment Type:FM Open Future Scheduled Tests Laboratory* HgbA1c 08/05/24 * HgbA1c 11/04/24 Radiology* CT Soft Tissue Neck w/ Contrast 11/12/23 [facility] 03-28-2020 Evaluation + Plan note Future Appointments Appointment Date:07/25/2024 02:30:00 PM Scheduled Provider: Location[facility] Appointment Type:CV EKG (FT) Appointment Date:07/25/2024 03:00:00 PM Scheduled Provider: Location:[facility] Appointment Type:CV Holter/Event (FT) Appointment Date:09/09/2024 08:20:00 [...] CT Soft Tissue Neck w/ Contrast 11/12/23 [facility] Evaluation + Plan note Future Appointments Appointment Date:11/08/2021 12:40:00 PM Scheduled Provider:Penelope CASAS DO, FAAFP Location:[facility] Appointment Type:FM Open Future Scheduled Tests Radiology* XR Spine Lumbosacral Minimum 4 Views 08/19/21 [facility] Evaluation + Plan note Future Appointments Appointment Date:11/08/2021 12:40:00 PM Scheduled Provider:Penelope CASAS DO, FAAFP Location:[facility] Appointment Type:FM Open Diagnostic Tests Pending * Urine Culture 08/19/21 Future Scheduled Tests Radiology* XR Spine Lumbosacral Minimum 4 Views [facility] Appointment Date:09/21/2022 10:00:00 AM Scheduled Provider:Penelope CASAS DO, FAAFP [facility]ments Appointment Date:10/20/2022 09:40:00 AM Scheduled Provider:Penelope CASAS DO, FAAFP [facility]ments Appointment Date:01/26/2023 10:40:00 AM Scheduled Provider:Penelope CASAS DO, FAAFP Location:[facility] Appointment Type: Open [facility] Evaluation + Plan note Future Appointments Appointment Date:04/17/2023 02:20:00 PM Scheduled Provider:Penelope CASAS DO, FAAFP Location:[facility] Appointment Type:FM Open Future Scheduled Tests Laboratory* HgbA1c 02/15/23 * Thyroid Stimulating Hormone 02/15/23 * Thyroid Stimulating Hormone 01/11/23 [facility] Evaluation + Plan note Future Appointments Appointment Date:07/24/2023 01:20:00 PM Scheduled Provider:Penelope CASAS DO, FAAFP Location:[facility] Appointment Type:FM Open Future Scheduled Tests Laboratory* HgbA1c 02/15/23 * Thyroid Stimulating Hormone [facility] Appointment Date:07/24/2023 01:20:00 PM Scheduled Provider:Penelope CASAS DO, FAAFP Location:[facility] Appointment Type: Open [facility] Evaluation + Plan note Future Appointments Appointment Date:12/03/2023 12:40:00 PM Scheduled Provider:Penelope CASAS DO, FAAFP Location:[facility] Appointment Type:FM Open Future Scheduled Tests Laboratory* HgbA1c 08/03/23 [facility] evaluation + Plan [...] Orbit Face Neck w/o contrast 11/09/23 [facility] evaluation + Plan note Future Appointments Appointment Date:01/11/2024 08:15:00 PM Scheduled Provider: [facility] Type:[facility] [place] Sleep Study PSG () Appointment Date:01/29/2024 01:20:00 PM Scheduled Provider:Penelope CASAS DO, FAAFP Location:[facility] Appointment Type:FM Open Diagnostic Tests Pending * Cortisol 12/06/23 * T3 Free 12/06/23 Future Scheduled Tests Laboratory* HgbA1c 08/03/23 Radiology* CT Soft Tissue Neck w/ Contrast 11/12/23 [facility] evaluation + Plan note Future [...] Neck w/ Contrast 11/12/23 [facility] evaluation + Plan note Future Appointments Appointment Date:05/16/2024 11:40:00 AM Scheduled Provider:Penelope CASAS DO, FAAFP Location:[facility] Appointment Type:FM Open Future Scheduled Tests Laboratory* HgbA1c 05/07/24 * HgbA1c 08/05/24 * HgbA1c 11/04/24 Radiology* CT Soft Tissue Neck w/ Contrast 11/12/23 [facility] evaluation + Plan note Future Appointments Appointment Date:05/16/2024 11:40:00 AM Scheduled Provider:Penelope CASAS DO, FAAFP Location:[facility] Appointment Type:FM Open Diagnostic Tests Pending * HIV Screen 4th Generation wRfx 02/23/24 Future Scheduled Tests Laboratory* HgbA1c 05/07/24 * HgbA1c 08/05/24 * HgbA1c 11/04/24 Radiology* CT Soft Tissue Neck w/ Contrast 11/12/23 [facility] evaluation + Plan note Future Appointments Appointment Date:05/16/2024 11:40:00 AM Scheduled Provider:Penelope CASAS DO, FAAFP Location:[facility] Appointment Type:FM Open Future Scheduled Tests Laboratory* HgbA1c 08/05/24 * HgbA1c 11/04/24 Radiology* CT Soft Tissue Neck w/ Contrast 11/12/23 [facility] evaluation + Plan note Future Appointments Appointment Date:05/16/2024 11:40:00 AM Scheduled Provider:Penelope CASAS DO, FAAFP Location:[facility] Appointment Type:FM Open Diagnostic Tests Pending * Urine Culture 03/01/24 Future Scheduled Tests Laboratory* HgbA1c 08/05/24 * HgbA1c 11/04/24 Radiology* CT Soft Tissue Neck w/ Contrast 11/12/23 [facility] evaluation + Plan note Future Appointments Appointment Date:07/07/2024 02:20:00 PM Scheduled Provider:Penelope CASAS DO, FAAFP Location:[facility] Appointment Type:FM Open Future Scheduled Tests Laboratory* HgbA1c 08/05/24 * HgbA1c 11/04/24 Radiology* CT Soft Tissue Neck w/ Contrast 11/12/23 [facility] evaluation + Plan note Future Appointments Appointment Date:09/09/2024 08:20:00 AM Scheduled Provider:Penelope CASAS DO, FAAFP Location:[facility] Appointment Type:FM Open Future Scheduled Tests Laboratory* HgbA1c 08/05/24 * HgbA1c 11/04/24 Radiology* CT Soft Tissue Neck w/ Contrast 11/12/23 [facility] evaluation note* Diagnosis Infective urethritis- Primary Urethritis, unspecified documented in this encounter [facility]* Diagnosis Primary hypercoagulable state (HCC) Primary hypercoagulable state CVA, old, speech/language deficit Speech and language deficit, unspecified, 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 Hyposmolality and/or hyponatremia documented in this encounter [facility] note* Diagnosis Primary hypercoagulable state (HCC) Primary hypercoagulable state CVA, old, speech/language deficit Speech and language deficit, unspecified, 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 Hyposmolality and/or hyponatremia documented in this encounter [facility] note* Diagnosis Primary hypercoagulable state (HCC)- Primary Primary hypercoagulable state CVA, old, speech/language deficit Speech and language deficit, unspecified, late effect of cerebrovascular disease Antiphospholipid antibody syndrome (HCC) Primary hypercoagulable state Anemia, unspecified type documented in this encounter [facility] note* Diagnosis Iron deficiency anemia secondary to blood loss (chronic) Iron deficiency anemia of Anemia of mother, complicating , childbirth, or the puerperium, unspecified as to episode of care documented in this encounter [facility] note* 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 Iron deficiency anemia of Anemia of mother, complicating , childbirth, or the puerperium, unspecified as to episode of care documented in this encounter [facility] note* Diagnosis Primary hypercoagulable state (HCC) Primary hypercoagulable state CVA, old, speech/language deficit Speech and language deficit, unspecified, 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 Hyposmolality and/or hyponatremia documented in this encounter [facility] note* 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 Iron deficiency anemia of Anemia of mother, complicating , childbirth, or the puerperium, unspecified as to episode of care documented in this encounter [facility] note* Diagnosis Primary hypercoagulable state (HCC) Primary hypercoagulable state CVA, old, speech/language deficit Speech and language deficit, unspecified, 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 Hyposmolality and/or hyponatremia documented in this encounter [facility] note* Diagnosis Primary hypercoagulable state (HCC)- Primary Primary hypercoagulable state 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, old, speech/language deficit Speech and language deficit, unspecified, late effect of cerebrovascular disease [facility] Primary hypercoagulable state (HCC) Primary hypercoagulable state CVA, old, speech/language deficit Speech and language deficit, unspecified, 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 Hyposmolality and/or hyponatremia [facility]* Diagnosis Primary hypercoagulable state (HCC)- Primary Primary hypercoagulable state Iron deficiency anemia of Anemia of mother, complicating , childbirth, or the puerperium, unspecified as to episode of care Iron deficiency anemia secondary to blood loss (chronic) Vitamin D deficiency Unspecified vitamin D deficiency [facility] Diagnosis Primary hypercoagulable state (HCC)- Primary Primary hypercoagulable state Iron deficiency anemia secondary to blood loss (chronic) Vitamin D deficiency Unspecified vitamin D deficiency CVA, old, speech/language deficit Speech and language deficit, unspecified, late effect of cerebrovascular disease Antiphospholipid antibody syndrome (HCC) Primary hypercoagulable state [facility]* Diagnosis Primary hypercoagulable state (HCC)- Primary Primary hypercoagulable state CVA, old, speech/language deficit Speech and language deficit, unspecified, late effect of cerebrovascular disease Hypercalcemia Vitamin D deficiency Unspecified vitamin D deficiency Iron deficiency anemia secondary to blood loss (chronic) Malaise and fatigue Other malaise and fatigue [facility]* Diagnosis Vitamin D deficiency- [...] blood loss (chronic) [facility] 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 [facility] Diagnosis Iron deficiency anemia of - Primary Anemia of mother, complicating , childbirth, or the puerperium, unspecified as to episode of care Iron deficiency anemia secondary to blood loss (chronic) [facility]* Diagnosis Iron deficiency anemia of - Primary Anemia of mother, complicating , childbirth, or the puerperium, unspecified as to episode of care Iron deficiency anemia secondary to blood loss (chronic) [facility] encounter [facility]* 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 Vitamin D deficiency Unspecified vitamin D deficiency Malaise and fatigue Other malaise and fatigue documented [facility] this encounter [facility]* Diagnosis Primary hypercoagulable state (HCC) Primary hypercoagulable state CVA, old, speech/language deficit Speech and language deficit, unspecified, 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 Hyposmolality and/or hyponatremia documented in this encounter [facility]* Diagnosis Missed menses , unspecified gestational age Encounter for supervision of normal first in first trimester Hypothyroidism (acquired) ([facility]/HCC) Unspecified hypothyroidism Low vitamin D level documented [facility]* Diagnosis 14 weeks gestation of Second trimester state, incidental Confirm viability with history of miscarriage, ultrasound Encounter for routine screening for malformation using ultrasonics documented in this encounter [facility] noteNo assessment information availableKn[facility] Work Phone: Evaluation note* Diagnosis Primary hypercoagulable state (HCC)- Primary Primary hypercoagulable state CVA, old, speech/language deficit Speech and language deficit, unspecified, 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) Vitamin D deficiency Unspecified vitamin D deficiency Antiphospholipid antibody syndrome (HCC) Primary hypercoagulable state documented in this encounter [facility]* Diagnosis Follow-up visit after miscarriage Abnormal TSH History of thyroid disease documented in this encounter [facility]* Diagnosis Vaginal bleeding Other specified noninflammatory disorder of vagina Dizziness Dizziness and giddiness Abnormal TSH Vaginal discharge Leukorrhea, not specified as infective Pelvic pain in female Unspecified symptom associated with female genital organs documented in this encounter [facility]* Diagnosis Irregular menstrual cycle documented in this encounter [facility]* Diagnosis Primary hypercoagulable state (HCC) Primary hypercoagulable state CVA, old, speech/language deficit Speech and language deficit, unspecified, 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 Hyposmolality and/or hyponatremia documented [facility] this encounter [facility]* Diagnosis Antiphospholipid antibody positive- Primary Other and unspecified nonspecific immunological findings Iron deficiency anemia secondary to blood loss (chronic) Malaise and fatigue Other malaise and fatigue Vitamin D deficiency Unspecified vitamin D deficiency [facility]* Diagnosis Amenorrhea Absence of menstruation Missed menses , unspecified gestational age Encounter for supervision of normal first in first trimester Thyroid disease ([facility]/HCC) Unspecified disorder of thyroid documented in this encounter [facility]* Diagnosis Gestational diabetes mellitus (GDM), antepartum, gestational diabetes method of control unspecified- Primary [facility] Diagnosis Primary hypercoagulable state (HCC) Primary hypercoagulable state CVA, old, speech/language deficit Speech and language deficit, unspecified, 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 Hyposmolality and/or hyponatremia documented [facility]* Diagnosis Primary hypercoagulable state (HCC)- Primary Primary hypercoagulable state CVA, old, speech/language deficit Speech and language deficit, unspecified, 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 Hyposmolality and/or hyponatremia Personal history of TIA (transient ischemic attack) Transient ischemic attack (TIA), and cerebral infarction without residual deficits [facility]* Diagnosis Second trimester (HHS-HCC) state, incidental 13 weeks gestation of ([facility]) Thyroid disease Unspecified disorder of thyroid Multigravida of advanced maternal age in second trimester ([facility]) Gestational diabetes mellitus (GDM), antepartum, gestational diabetes method of control unspecified([facility]) Elevated glucose tolerance test Impaired glucose tolerance test documented in this encounter [facility]* Diagnosis Gestational diabetes mellitus (GDM), antepartum, gestational diabetes method of control unspecified- Primary [facility]* Diagnosis Second trimester (HHS-HCC) state, incidental 16 weeks gestation of ([facility]) Screening, , for anatomic survey ([facility]) Encounter for anatomic survey Vaginal discharge Leukorrhea, not specified as infective Sinus headache Headache [facility] Insulin controlled gestational diabetes mellitus (GDM) in second trimester- Primary [facility]* Diagnosis 19 weeks gestation of (HHS-HCC) Second trimester (HHS-HCC) state, incidental Thyroid disease Unspecified disorder of thyroid Multigravida of advanced maternal age in second trimester (HHS-HCC) Gestational diabetes mellitus (GDM), antepartum, gestational diabetes method of control unspecified(HHS-HCC) [facility] Diagnosis Gestational diabetes mellitus (GDM) in second trimester controlled on oral hypoglycemic drug- Primary [facility]* Diagnosis Antiphospholipid antibody positive- Primary Other and unspecified nonspecific immunological findings Iron deficiency anemia secondary to blood loss (chronic) Vitamin D deficiency Unspecified vitamin D deficiency Primary hypercoagulable state (HCC) Primary hypercoagulable state [facility] this encounter [facility]* Diagnosis Gestational diabetes mellitus (GDM) in second trimester controlled on oral hypoglycemic drug- Primary [facility]* Diagnosis Multigravida of advanced maternal age in second trimester- Primary Antiphospholipid syndrome complicating , antepartum Gestational diabetes mellitus (GDM) in second trimester controlled on oral hypoglycemic drug Insulin controlled gestational diabetes mellitus (GDM) in second trimester AMA (advanced maternal age) multigravida 35+, second trimester Hypothyroidism, unspecified type [facility] Diagnosis 22 weeks gestation [...] and/or hyponatremia [facility] Diagnosis Multigravida of advanced [...] (GDM), antepartum, gestational diabetes method of control unspecified([facility]) Multigravida of advanced maternal age in second trimester ([facility]) H/O loss Lightheaded Dizziness and [...] ([facility]) state, incidental 25 weeks gestation of ([facility]) Gestational diabetes mellitus (GDM), antepartum, gestational diabetes method of control unspecified([facility]) Anticoagulant long-term use Encounter for long-term (current) use of anticoagulants Antiphospholipid antibody positive Other and unspecified nonspecific immunological findings Antiphospholipid antibody syndrome ([facility]) Primary hypercoagulable state documented in this encounter [facility]Evaluation [facility]* Diagnosis 27 weeks gestation of - Primary Multigravida of advanced maternal age in third trimester Gestational diabetes mellitus (GDM) in second trimester controlled on oral hypoglycemic drug Antiphospholipid syndrome complicating , antepartum Antiphospholipid syndrome Primary hypercoagulable state [facility] Diagnosis Third trimester ([facility]) state, incidental 28 weeks gestation of ([facility]) Anemia complicating childbirth ([facility]) Anticoagulant long-term use Encounter for long-term (current) use of anticoagulants Antiphospholipid antibody positive Other and unspecified nonspecific immunological findings Blood pressure elevated without history of HTN Coagulation defect, unspecified ([facility]) documented in this encounter [facility] [...] data available for this section [facility] Discharge instructions No data available for this section [facility]ructionsNot on filedocumented in this encounter [facility] [...] be sent through Care Everywhere. * Preeclampsia (Micronesian) documented in [facility] encounter[facility] SystemInstructionsNot on file documented in this encounterProMedica Health SystemInstructionsNot on file documented in this encounterProMedica Health SystemInstructionsNot on file documented in this encounterProMedica Health SystemInstructionsNot on file documented in this encounterPro[facility]ica [facility] SystemInstructions* Attachments The following attachments cannot be sent through Care Everywhere. * Preeclampsia (Micronesian) documented in this encounterPro[facility] SystemInstructionsNot on file documented in this encounterProMedica Health SystemInstructionsNot on file documented in this encounterProMedica Health SystemInstructionsNot on file documented in this encounterProMedica Health SystemProgress note No data available for this section [facility] CenterReason [facility] (narrative) , pt reported hx of nasal polyps and deviated septum but never had surgery done Referred by: Shirlene YEBOAH, Lourdes Baltazar [facility] Reason for visit Narrative* Consultation (Urgent) - Pending ReviewSpecialtyDiagnoses / ProceduresReferred By ContactReferred To ContactRheumatology Diagnoses 22 weeks gestation of Antiphospholipid syndrome complicating , antepartum Mukul Noyola MD [address] [facility], [address] [place] [address] Phone: tel: fax: Sam Callahan MD MPH [address] [address] Phone: tel: fax: Referral IDStatusReasonStart DateExpiration DateVisits RequestedVisits [id number] Review Specialty Services Required [facility] Summary Purpose Family History No [...] a 30 minute post dose observation. Rate/Dose Sfyjdy9004/05/2022 2:44 PM PSH314.67 mL/qnHpcfzesqd70/07/2022 2:25 PM EYK323 mL/hrNew Bag/Syringe/Stlmhq9104/05/2022 1:52 PM UOZ302 mg166.67 mL/hr Medication OrderMAR ActionAction DateDoseRateSite iron sucrose 300 mg in NaCl 0.9% 250 mL (VENOFER) 300 mg, INTRAVENOUS, at 166.67 mL/hr, Administer over 90 Minutes, ONCE, 1 dose, On Christie 04/20/22 at 1400, Please conduct a 30 minute post dose observation. New Bag/Syringe/Plroah4004/20/2022 2:01 PM NAP331 mg166.67 mL/hr Additional Source Comments INFORMATION SOURCE (unrecogn ized section and content) DATE CREATED AUTHOR 10/22/2017 [facility] DATE CREATED AUTHOR AUTHOR'S ORGANIZ ATION 11/14/2017 [employer] DATE CREATED AUTHOR AUTHOR'S ORGANIZ ATION 06/18/2018 [facility] DATE CREATED AUTHOR AUTHOR'S ORGANIZ ATION 12/30/2021 [facility] DATE CREATED AUTHOR AUTHOR'S ORGANIZ ATION 06/09/2022 [facility] DATE CREATED AUTHOR AUTHOR'S ORGANIZ ATION 09/29/2023 [facility] DATE CREATED AUTHOR AUTHOR'S ORGANIZ ATION 12/03/2023 [facility] DATE CREATED AUTHOR AUTHOR'S ORGANIZ ATION 12/09/2023 [facility] DATE CREATED AUTHOR AUTHOR'S ORGANIZ ATION 12/10/2023 [facility] DATE CREATED AUTHOR AUTHOR'S ORGANIZ ATION 01/27/2024 [facility] DATE CREATED AUTHOR AUTHOR'S ORGANIZ ATION 02/24/2024 [facility] DATE CREATED AUTHOR AUTHOR'S ORGANIZ ATION 02/26/2024 [facility] DATE CREATED AUTHOR AUTHOR'S ORGANIZ ATION 02/28/2024 [facility] DATE CREATED AUTHOR AUTHOR'S ORGANIZ ATION 03/02/2024 [facility] DATE CREATED AUTHOR AUTHOR'S ORGANIZ ATION 03/03/2024 [facility] DATE CREATED AUTHOR AUTHOR'S ORGANIZ ATION 05/15/2024 [facility] DATE CREATED AUTHOR AUTHOR'S ORGANIZ ATION 05/17/2024 [facility] DATE CREATED AUTHOR AUTHOR'S ORGANIZ ATION 05/18/2024 [facility] DATE CREATED AUTHOR AUTHOR'S ORGANIZ ATION 05/19/2024 [facility] DATE CREATED AUTHOR AUTHOR'S ORGANIZ ATION 06/11/2024 [facility] DATE CREATED AUTHOR AUTHOR'S ORGANIZ ATION 06/17/2024 [facility] DATE CREATED AUTHOR AUTHOR'S ORGANIZ ATION 07/09/2024 [facility] DATE CREATED AUTHOR AUTHOR'S ORGANIZ ATION 07/12/2024 [facility] DATE CREATED AUTHOR AUTHOR'S ORGANIZ ATION 07/15/2024 [facility] DATE CREATED AUTHOR AUTHOR'S ORGANIZ ATION 08/24/2024 [facility] DATE CREATED AUTHOR AUTHOR'S ORGANIZ ATION 08/26/2024 [facility] DATE CREATED AUTHOR AUTHOR'S ORGANIZ ATION 09/01/2024 [facility] DATE CREATED AUTHOR AUTHOR'S ORGANIZ ATION 09/08/2024 [facility] DATE CREATED AUTHOR AUTHOR'S ORGANIZ ATION 09/11/2024 [facility] DATE CREATED AUTHOR AUTHOR'S ORGANIZ ATION 12/09/2024 [facility] DATE CREATED AUTHOR AUTHOR'S ORGANIZ ATION 01/18/2025 [facility] DATE CREATED AUTHOR AUTHOR'S ORGANIZ ATION 02/07/2025 [facility] DATE CREATED AUTHOR AUTHOR'S ORGANIZ ATION 02/13/2025 [facility] DATE CREATED AUTHOR AUTHOR'S ORGANIZ ATION 03/03/2025 [facility] DATE CREATED AUTHOR AUTHOR'S ORGANIZ ATION 03/11/2025 [facility] DATE CREATED AUTHOR AUTHOR'S ORGANOSEAS ATION 03/12/2025 [facility] Source Comments (unrecognize d section and content) In the event this informatio n is protected by the Federal Confidentiality of Alcohol and Drug Abuse Patient Records regulations: The Federal rules restrict any use of the information to criminally investigate or prosecute any alcohol or drug abuse patient.[facility] HospitalIn the event this information is protected by the Federal Confidentiality of Alcohol and Drug Abuse Patient Records regulations: The Federal rules restrict any use of the information to criminally investigate or prosecute any alcohol or drug abuse patient.[facility] HospitalIn the event this information is protected by the Federal Confidentiality of Alcohol and Drug Abuse Patient Records regulations: The Federal rules restrict any use of the information to criminally investigate or prosecute any alcohol or drug abuse patient.[facility] HospitalIn the event this information is protected by the Federal Confidentiality of Alcohol and Drug Abuse Patient Records regulations: The Federal rules restrict any use of the information to criminally investigate or prosecute any alcohol or drug abuse patient.[facility] HospitalIn the event this information is protected by the Federal Confidentiality of Alcohol and Drug Abuse Patient Records regulations: The Federal rules restrict any use of the information to criminally investigate or prosecute any alcohol or drug abuse patient.[facility] HospitalIn the event this information is protected by the Federal Confidentiality of Alcohol and Drug Abuse Patient Records regulations: The Federal rules restrict any use of the information to criminally investigate or prosecute any alcohol or drug abuse patient.[facility] HospitalIn the event this information is protected by the Federal Confidentiality of Alcohol and Drug Abuse Patient Records regulations: The Federal rules restrict any use of the information to criminally investigate or prosecute any alcohol or drug abuse patient.[facility] HospitalIn the event this information is protected by the Federal Confidentiality of Alcohol and Drug Abuse Patient Records regulations: The Federal rules restrict any use of the information to criminally investigate or prosecute any alcohol or drug abuse patient.[facility] HospitalIn the event this information is protected by the Federal Confidentiality of Alcohol and Drug Abuse Patient Records regulations: The Federal rules restrict any use of the information to criminally investigate or prosecute any alcohol or drug abuse patient.[facility] HospitalIn the event this information is protected by the Federal Confidentiality of Alcohol and Drug Abuse Patient Records regulations: The Federal rules restrict any use of the information to criminally investigate or prosecute any alcohol or drug abuse patient.[facility] HospitalIn the event this information is protected by the Federal Confidentiality of Alcohol and Drug Abuse Patient Records regulations: The Federal rules restrict any use of the information to criminally investigate or prosecute any alcohol or drug abuse patient.[facility] HospitalIn the event this information is protected by the Federal Confidentiality of Alcohol and Drug Abuse Patient Records regulations: The Federal rules restrict any use of the information to criminally investigate or prosecute any alcohol or drug abuse patient.[facility] HospitalIn the event this information is protected by the Federal Confidentiality of Alcohol and Drug Abuse Patient Records regulations: The Federal rules restrict any use of the information to criminally investigate or prosecute any alcohol or drug abuse patient.[facility] HospitalIn the event this information is protected by the Federal Confidentiality of Alcohol and Drug Abuse Patient Records regulations: The Federal rules restrict any use of the information to criminally investigate or prosecute any alcohol or drug abuse patient.[facility] HospitalIn the event this information is protected by the Federal Confidentiality of Alcohol and Drug Abuse Patient Records regulations: The Federal rules restrict any use of the information to criminally investigate or prosecute any alcohol or drug abuse patient.[facility] HospitalIn the event this information is protected by the Federal Confidentiality of Alcohol and Drug Abuse Patient Records regulations: The Federal rules restrict any use of the information to criminally investigate or prosecute any alcohol or drug abuse patient.[facility] HospitalIn the event this information is protected by the Federal Confidentiality of Alcohol and Drug Abuse Patient Records regulations: The Federal rules restrict any use of the information to criminally investigate or prosecute any alcohol or drug abuse patient.[facility] HospitalIn the event this information is protected by the Federal Confidentiality of Alcohol and Drug Abuse Patient Records regulations: The Federal rules restrict any use of the information to criminally investigate or prosecute any alcohol or drug abuse patient.[facility] HospitalIn the event this information is protected by the Federal Confidentiality of Alcohol and Drug Abuse Patient Records regulations: The Federal rules restrict any use of the information to criminally investigate or prosecute any alcohol or drug abuse patient.[facility] HospitalIn the event this information is protected by the Federal Confidentiality of Alcohol and Drug Abuse Patient Records regulations: The Federal rules restrict any use of the information to criminally investigate or prosecute any alcohol or drug abuse patient.[facility] HospitalIn the event this information is protected by the Federal Confidentiality of Alcohol and Drug Abuse Patient Records regulations: The Federal rules restrict any use of the information to criminally investigate or prosecute any alcohol or drug abuse patient.[facility] HospitalIn the event this information is protected by the Federal Confidentiality of Alcohol and Drug Abuse Patient Records regulations: The Federal rules restrict any use of the information to criminally investigate or prosecute any alcohol or drug abuse patient.[facility] HospitalIn the event this information is protected by the Federal Confidentiality of Alcohol and Drug Abuse Patient Records regulations: The Federal rules restrict any use of the information to criminally investigate or prosecute any alcohol or drug abuse patient.[facility] HospitalIn the event this information is protected by the Federal Confidentiality of Alcohol and Drug Abuse Patient Records regulations: The Federal rules restrict any use of the information to criminally investigate or prosecute any alcohol or drug abuse patient.[facility] HospitalIn the event this information is protected by the Federal Confidentiality of Alcohol and Drug Abuse Patient Records regulations: The Federal rules restrict any use of the information to criminally investigate or prosecute any alcohol or drug abuse patient.[facility] HospitalIn the event this information is protected by the Federal Confidentiality of Alcohol and Drug Abuse Patient Records regulations: The Federal rules restrict any use of the information to criminally investigate or prosecute any alcohol or drug abuse patient.[facility] HospitalIn the event this information is protected by the Federal Confidentiality of Alcohol and Drug Abuse Patient Records regulations: The Federal rules restrict any use of the information to criminally investigate or prosecute any alcohol or drug abuse patient.[facility] HospitalIn the event this information is protected by the Federal Confidentiality of Alcohol and Drug Abuse Patient Records regulations: The Federal rules restrict any use of the information to criminally investigate or prosecute any alcohol or drug abuse patient.[facility] HospitalIn the event this information is protected by the Federal Confidentiality of Alcohol and Drug Abuse Patient Records regulations: The Federal rules restrict any use of the information to criminally investigate or prosecute any alcohol or drug abuse patient.[facility] HospitalIn the event this information is protected by the Federal Confidentiality of Alcohol and Drug Abuse Patient Records regulations: The Federal rules restrict any use of the information to criminally investigate or prosecute any alcohol or drug abuse patient.[facility] HospitalIn the event this information is protected by the Federal Confidentiality of Alcohol and Drug Abuse Patient Records regulations: The Federal rules restrict any use of the information to criminally investigate or prosecute any alcohol or drug abuse patient.[facility] HospitalIn the event this information is protected by the Federal Confidentiality of Alcohol and Drug Abuse Patient Records regulations: The Federal rules restrict any use of the information to criminally investigate or prosecute any alcohol or drug abuse patient.[facility] HospitalIn the event this information is protected by the Federal Confidentiality of Alcohol and Drug Abuse Patient Records regulations: The Federal rules restrict any use of the information to criminally investigate or prosecute any alcohol or drug abuse patient.[facility] HospitalIn the event this information is protected by the Federal Confidentiality of Alcohol and Drug Abuse Patient Records regulations: The Federal rules restrict any use of the information to criminally investigate or prosecute any alcohol or drug abuse patient.[facility] HospitalIn the event this information is protected by the Federal Confidentiality of Alcohol and Drug Abuse Patient Records regulations: The Federal rules restrict any use of the information to criminally investigate or prosecute any alcohol or drug abuse patient.[facility] HospitalIn the event this information is protected by the Federal Confidentiality of Alcohol and Drug Abuse Patient Records regulations: The Federal rules restrict any use of the information to criminally investigate or prosecute any alcohol or drug abuse patient.[facility] HospitalIn the event this information is protected by the Federal Confidentiality of Alcohol and Drug Abuse Patient Records regulations: The Federal rules restrict any use of the information to criminally investigate or prosecute any alcohol or drug abuse patient.[facility] HospitalIn the event this information is protected by the Federal Confidentiality of Alcohol and Drug Abuse Patient Records regulations: The Federal rules restrict any use of the information to criminally investigate or prosecute any alcohol or drug abuse patient.[facility] HospitalIn the event this information is protected by the Federal Confidentiality of Alcohol and Drug Abuse Patient Records regulations: The Federal rules restrict any use of the information to criminally investigate or prosecute any alcohol or drug abuse patient.[facility] HospitalIn the event this information is protected by the Federal Confidentiality of Alcohol and Drug Abuse Patient Records regulations: The Federal rules restrict any use of the information to criminally investigate or prosecute any alcohol or drug abuse patient.[facility] HospitalIn the event this information is protected by the Federal Confidentiality of Alcohol and Drug Abuse Patient Records regulations: The Federal rules restrict any use of the information to criminally investigate or prosecute any alcohol or drug abuse patient.[facility] HospitalIn the event this information is protected by the Federal Confidentiality of Alcohol and Drug Abuse Patient Records regulations: The Federal rules restrict any use of the information to criminally investigate or prosecute any alcohol or drug abuse patient.[facility] HospitalIn the event this information is protected by the Federal Confidentiality of Alcohol and Drug Abuse Patient Records regulations: The Federal rules restrict any use of the information to criminally investigate or prosecute any alcohol or drug abuse patient.[facility] HospitalIn the event this information is protected by the Federal Confidentiality of Alcohol and Drug Abuse Patient Records regulations: The Federal rules restrict any use of the information to criminally investigate or prosecute any alcohol or drug abuse patient.[facility] HospitalIn the event this information is protected by the Federal Confidentiality of Alcohol and Drug Abuse Patient Records regulations: The Federal rules restrict any use of the information to criminally investigate or prosecute any alcohol or drug abuse patient.[facility] HospitalIn the event this information is protected by the Federal Confidentiality of Alcohol and Drug Abuse Patient Records regulations: The Federal rules restrict any use of the information to criminally investigate or prosecute any alcohol or drug abuse patient.[facility] HospitalIn the event this information is protected by the Federal Confidentiality of Alcohol and Drug Abuse Patient Records regulations: The Federal rules restrict any use of the information to criminally investigate or prosecute any alcohol or drug abuse patient.[facility] HospitalIn the event this information is protected by the Federal Confidentiality of Alcohol and Drug Abuse Patient Records regulations: The Federal rules restrict any use of the information to criminally investigate or prosecute any alcohol or drug abuse patient.[facility] HospitalIn the event this information is protected by the Federal Confidentiality of Alcohol and Drug Abuse Patient Records regulations: The Federal rules restrict any use of the information to criminally investigate or prosecute any alcohol or drug abuse patient.[facility] HospitalIn the event this information is protected by the Federal Confidentiality of Alcohol and Drug Abuse Patient Records regulations: The Federal rules restrict any use of the information to criminally investigate or prosecute any alcohol or drug abuse patient.[facility] HospitalIn the event this information is protected by the Federal Confidentiality of Alcohol and Drug Abuse Patient Records regulations: The Federal rules restrict any use of the information to criminally investigate or prosecute any alcohol or drug abuse patient.[facility] HospitalIn the event this information is protected by the Federal Confidentiality of Alcohol and Drug Abuse Patient Records regulations: The Federal rules restrict any use of the information to criminally investigate or prosecute any alcohol or drug abuse patient.[facility] HospitalIn the event this information is protected by the Federal Confidentiality of Alcohol and Drug Abuse Patient Records regulations: The Federal rules restrict any use of the information to criminally investigate or prosecute any alcohol or drug abuse patient.[facility] HospitalIn the event this information is protected by the Federal Confidentiality of Alcohol and Drug Abuse Patient Records regulations: The Federal rules restrict any use of the information to criminally investigate or prosecute any alcohol or drug abuse patient.[facility] HospitalIn the event this information is protected by the Federal Confidentiality of Alcohol and Drug Abuse Patient Records regulations: The Federal rules restrict any use of the information to criminally investigate or prosecute any alcohol or drug abuse patient.[facility] Care Teams (unrecognized sec tion and content) Team MemberRelationshipSpecialtyStart DateEnd Date Humaira Gaviria MD [address] [place] [id number] PCP - GeneralInternal Medicine07/05/18 Jonny Wilcox MD [address] [facility] [address] Primary Staff PhysicianCardiology07/16/18Team MemberRelationshipSpecialtyStart DateEnd Date Humaira Gaviria MD [address] [place] [id number] PCP - GeneralInternal Medicine07/05/18 Jonny Wilcox MD [address] [place] [address] Primary Staff PhysicianCardiology07/16/18Team MemberRelationshipSpecialtyStart DateEnd Date Humaira Gaviria MD [address] [place] [id number] PCP - GeneralInternal Medicine07/05/18 Jonny Wilcox MD [address] [place] [address] Primary Staff PhysicianCardiology07/16/18Team MemberRelationshipSpecialtyStart DateEnd Date Humaira Gaviria MD [address] [place] [address] PCP - GeneralInternal Medicine07/05/18 Jonny Wilcox MD [address] [place] [address] Primary Staff PhysicianCardiology07/16/18Team MemberRelationshipSpecialtyStart DateEnd Date Humaira Gaviria MD [address] [place] [address] PCP - GeneralInternal Medicine07/05/18 Jonny Wilcox MD [address] [place] [address] Primary Staff PhysicianCardiology07/16/18 [place] [address] [place] [address] PhysicianHematology/Oncology09/14/21 Davida Restrepo RN [address] [place] [address] Specialty Care CoordinatorHematology/Oncology09/14/21Team MemberRelationship SpecialtyStart DateEnd Date Penelope Casas [facility] [place] [address] PCP - GeneralFamily Medicine10/04/20Team MemberRelationshipSpecialtyStart DateEnd Date Humaira Gaviria MD [address] [place] [address] PCP - GeneralInternal Medicine3/8/19 Jonny Wilcox MD [address] [place] [address] Primary Staff PhysicianCardiology07/16/18 [place] [address] [place] [address] PhysicianHematology/Oncology09/14/21 Davida Restrepo, RN [address] [place] [address] Specialty Care CoordinatorHematology/Oncology09/14/21Te MemberRelationship SpecialtyStart DateEnd Date Penelope Casas, [address] [place] [address] PCP - GeneralFamily Jwfmflsr75/3/22 Jonny Wilcxo MD [address] [place] [address] Primary Staff PhysicianCardiology07/16/18 [place] [address] [place] [address] PhysicianHematology/Oncology09/14/21 Davida Restrepo, RN [address] [place] [address] Specialty Care CoordinatorHematology/Oncology09/14/21Te MemberRelationship SpecialtyStart DateEnd Date Penelope Casas DO [address] [place] [address] PCP - GeneralFamily Pepcuwup21/3/22 Jonny Wilcox MD [address] [place] [address] Primary Staff PhysicianCardiology07/16/18 [place] [address] [place] [address] PhysicianHematology/Oncology09/14/21 Davida Restrepo, RN [address] [place] [address] Specialty Care CoordinatorHematology/Oncology09/14/21Te MemberRelationship SpecialtyStart DateEnd Date Penelope Casas, DO [address] [place] [address] PCP - GeneralFamily Ptwyctni87/3/22 Jonny Wilcox MD [address] [place] [address] Primary Staff PhysicianCardiology07/16/18 [place] [address] [place] [address] PhysicianHematology/Oncology09/14/21 Davida Restrepo, RN [address] [place] [address] Specialty Care CoordinatorHematology/Oncology09/14/21Te MemberRelationship SpecialtyStart DateEnd Date Penelope Casas, DO [address] [place] [address] PCP - Generalmily Twjjjwcy78/3/22 Jonny Wilcox MD [address] [place] [address] Primary Staff PhysicianCardiology07/16/18 [place] [address] [place] [address] PhysicianHematology/Oncology09/14/21 Davida Restrepo, RN [address] [place] [address] Specialty Care CoordinatorHematology/Oncology09/14/21Te MemberRelationship SpecialtyStart DateEnd [facility] Penelope Casas, DO [address] [place] [address] PCP - GeneralFamily Nbgnagdk52/3/22 Jonny Wilcox MD [address] [place] [address] Primary Staff PhysicianCardiology07/16/18 [place] [address] [place] [address] PhysicianHematology/Oncology09/14/21 Davida Restrepo, RN [address] [place] [address] Specialty Care CoordinatorHematology/Oncology09/14/21Te MemberRelationship SpecialtyStart DateEnd [facility] Penelope Casas, DO [address] [place] [address] PCP - GeneralFamily Ylwiveul07/3/22 Jonny Wilcox MD [address] [place] [address] Primary Staff PhysicianCardiology07/16/18 [place] [address] [place] [address] PhysicianHematology/Oncology09/14/21 Davida Restrepo, RN [address] [place] [address] Specialty Care CoordinatorHematology/Oncology09/14/21Te MemberRelationship SpecialtyStart DateChi [facility] Penelope Casas, DO [address] [place] [address] PCP - GeneralFamily Lzhmkmjk73/3/22 Jonny Wilcox MD [address] [place] [address] Primary Staff PhysicianCardiology07/16/18 [place] [address] [place] [address] PhysicianHematology/Oncology09/14/21 Davida Restrepo, RN [address] [place] [address] Specialty Care CoordinatorHematology/Oncology09/14/21Te MemberRelationship SpecialtyStart DateEnd Date Penelope Casas, [address] [place] [address] PCP - GeneralFamily Tgqvhmqz96/3/22 Jonny Wilcox MD [address] [place] [address] Primary Staff PhysicianCardiology07/16/18 [place] [address] [place] [address] PhysicianHematology/Oncology09/14/21 Davida Restrepo, MARSHA [address] [place] [address] Specialty Care CoordinatorHematology/Oncology09/14/21Te MemberRelationship SpecialtyStart DateEnd Date Penelope Casas, DO [address] [place] [address] PCP - Generalmily Lcbyxcvw29/3/22 Jonny Wilcox MD [address] [place] [address] Primary Staff PhysicianCardiology07/16/18 [place] [address] [place] [address] PhysicianHematology/Oncology09/14/21 Davida Restrepo RN [address] [place], [place] [address] Specialty Care CoordinatorHematology/Oncology09/14/21Team MemberRelationship SpecialtyStart DateEnd Date Penelope Casas DO [address] [place] [address] PCP - Generalmily Ntyznatx31/3/22 Jonny Wilcox MD [address] [place] [address] Primary Staff PhysicianCardiology07/16/18 [place] [address] [place] [address] PhysicianHematology/Oncology09/14/21 Davida Restrepo RN [address] [place] [address] Specialty Care CoordinatorHematology/Oncology09/14/21Te MemberRelationship SpecialtyStart DateEnd Date Penelope Casas DO [address] [place] [address] [facility] - [facility] Nwlwpfbt59/3/22 Jonny Wilcox MD [address] [place] [address] Primary Staff PhysicianCardiology07/16/18 [place] [address] [place] [address] PhysicianHematology/Oncology09/14/21 Davida Restrepo RN [address] [place] [address] Specialty Care CoordinatorHematology/Oncology09/14/21Team MemberRelationship Specialtyart DateEnd Penelope Casas DO [address] [place] [address] PCP - GeneralFamily Pmmmldsf69/3/22 Jonny Wilcox MD [address] [place] [address] Primary Staff PhysicianCardiology07/16/18 [place] [address] [place] [address] PhysicianHematology/Oncology09/14/21 Davida Restrepo RN [address] [place] [address] Specialty Care CoordinatorHematology/Oncology09/14/21Te MemberRelationship SpecialtyStart DateEnd Date Penelope Casas DO [address] [place] [address] PCP - Generalmily Rpuzzeic29/3/22 Jonny Wilcox MD [address] [place] [address] Primary Staff PhysicianCardiology07/16/18 [place] [address] [place] [address] PhysicianHematology/Oncology09/14/21 Davida Restrepo RN [address] [place] [address] Specialty Care CoordinatorHematology/Oncology09/14/21Team MemberRelationship SpecialtyStart DateEnd Date Penelope Casas DO [address] [facility] [place] [address] [facility]CP - [facility] Qjbnxpqx13/3/22 Jonny Wilcox MD [address] [place] [address] Primary Staff PhysicianCardiology07/16/18 [place] [address] [place] [address] PhysicianHematology/Oncology09/14/21 Davida Restrepo, RN [address] [place] [address] Specialty Care CoordinatorHematology/Oncology09/14/21Team MemberRelationship SpecialtyStart DateEnd Date Penelope Casas DO [address] [place] [facility] [address] PCP - [facility] Boyghiij29/3/22 Jonny Wilcox MD [address] [place] [address] Primary Staff PhysicianCardiology07/16/18 [place] [address] [place] [address] PhysicianHematology/Oncology09/14/21 Davida Restrepo RN [address] [place], [place] [address] Specialty Care CoordinatorHematology/Oncology09/14/21Team MemberRelationship SpecialtyStart DateEnd Date Penelope Casas DO [address] [address] PCP - Generalmily Rzckwrrc53/3/22 Jonny Wilcox MD [address] [place] [address] Primary Staff PhysicianCardiology07/16/18 [place] [address] [place] [address] PhysicianHematology/Oncology09/14/21 Davida Restrepo, RN [address] [place] [address] Specialty Care CoordinatorHematology/Oncology09/14/21Team MemberRelationship SpecialtyStart DateEnd Date Penelope Casas DO [address] [address] PCP - Generalmily Mdpbutnm09/3/22 Jonny Wilcox MD [address] [place] [address] Primary Staff PhysicianCardiology07/16/18 [place] [address] [place] [address] PhysicianHematology/Oncology09/14/21 Davida Restrepo, RN [address] [place] [address] Specialty Care CoordinatorHematology/Oncology09/14/21Team MemberRelationship SpecialtyStart DateEnd Date Penelope Casas DO [address] [address] PCP - GeneralFamily Unyamufu11/3/22 Jonny Wilcox MD [address] [place] [address] Primary Staff PhysicianCardiology07/16/18 [place] [address] [place] [address] PhysicianHematology/Oncology09/14/21 Davida Restrepo, MARSHA [address] [place] [address] Specialty Care CoordinatorHematology/Oncology09/14/21Team MemberRelationship SpecialtyStart DateEnd Date Penelope Casas DO [address] [place] [address] PCP - Generalmily Wouelodc77/3/22 Jonny Wilcox MD [address] [place] [address] Primary Staff PhysicianCardiology07/16/18 [place] [address] [place] [address] PhysicianHematology/Oncology09/14/21 Davida Restrepo RN [address] [facility] [address] Specialty Care CoordinatorHematology/Oncology09/14/21Team MemberRelationship SpecialtyStart DateEnd Date Penelope Casas DO [address] [place] [address] PCP - GeneralFamily Ledwpjyu64/3/22 Jonny Wilcox MD [address] [place] [facility] [address] Primary Staff PhysicianCardiology07/16/18 [place] [address] [place] [address] PhysicianHematology/Oncology09/14/21 Davida Restrepo RN [address] [facility] [place] [facility] [address] Specialty Care CoordinatorHematology/Oncology09/14/21Team MemberRelationship SpecialtyStart DateEnd Date Penelope Casas DO [address] [place] [address] PCP - GeneralFamily Rjkmisth96/3/22 Jonny Wilcox MD [address] [place] [address] Primary Staff PhysicianCardiology07/16/18 [place] [address] [place] [address] PhysicianHematology/Oncology09/14/21 Davida Restrepo RN [address] [facility] [place] [facility] [address] Specialty Care CoordinatorHematology/Oncology09/14/21Te MemberRelationship SpecialtyStart DateEnd Date Penelope Casas DO [address] [place] [address] PCP - GeneralFamily Hynfqjlm48/3/22 Jonny Wilcox MD [address] [place] [address] Primary Staff PhysicianCardiology07/16/18 [place] [address] [place] [address] PhysicianHematology/Oncology09/14/21 Davida Restrepo, MARSHA [address] [place] [address] Specialty Care CoordinatorHematology/Oncology09/14/21Team MemberRelationship SpecialtyStart DateEnd Date Penelope Casas DO [address] [address] [facility]CP - [facility] Kipbvufi11/3/22 Jonny Wilcox MD [address] [place] [address] Primary Staff PhysicianCardiology07/16/18 [place] [address] [place] [address] PhysicianHematology/Oncology09/14/21 Davida Restrepo RN [address] [place] [address] Specialty Care CoordinatorHematology/Oncology09/14/21Team MemberRelationship SpecialtyStart DateEnd Date Penelope Casas DO [address] [address] PCP - GeneralFamily Oijaqabq75/3/22 Jonny Wilcox MD [address] [place] [address] Primary Staff PhysicianCardiology07/16/18 [place] [address] [place] [address] PhysicianHematology/Oncology09/14/21 Davida Restrepo, RN [address] [place] [address] Specialty Care CoordinatorHematology/Oncology09/14/21Team MemberRelationship SpecialtyStart DateEnd Date Penelope Casas MD [address] [place] [address] PCP - GeneralFamily Medicine11/07/23Team MemberRelationshipSpecialtyStart DateEnd Date Penelope Casas MD [address] [place] [address] PCP - GeneralFamily Medicine11/07/23Team MemberRelationshipSpecialtyStart DateEnd Date Penelope Casas MD [address] [place] [address] PCP - Generalmily Medicine11/07/23Team MemberRelationshipSpecialtyStart DateEnd Date Penelope Casas MD [address] [place] [address] PCP - Generalmily Medicine11/07/23Team MemberRelationshipSpecialtyStart DateEnd Date Penelope Casas MD [address] [place] [address] PCP - Generalmily Medicine11/07/23 Team Status: Inactive Member Role Status Dates Wilton Herrmann DO Attending Provider Active Start : May 10, 2024 End: May 10, 2024Team MemberRelationshipSpecialtyStart DateEnd Date Penelope Casas DO [address] [place] [address] PCP - GeneralFamily Lnmxchcj12/3/22 Jonny Wilcox MD [address] [place], [place] [address] Primary Staff PhysicianCardiology07/16/18 [place] [address] [place], [place] [address] PhysicianHematology/Oncology09/14/21 Davida Restrepo RN [address] [place], [place] [address] Specialty Care CoordinatorHematology/Oncology09/14/21Team MemberRelationship SpecialtyStart DateEnd Date Penelope Casas MD [address] [place] [id number] PCP - Generalmily Medicine11/07/23Team MemberRelationshipSpecialtyStart DateEnd Date Penelope Casas MD [address] [place] [address] PCP - Generalmily Medicine11/07/23Team MemberRelationshipSpecialtyStart DateEnd Date Penelope Casas MD [address] [place] [address] PCP - [facility]Mer[facility]ly [facility]11/07/23Team MemberRelationshipSpecialtyStart DateEnd Date Penelope Casas MD [address] [place] [address] PCP - GeneralFamily Medicine11/07/23Team MemberRelationshipSpecialtyStart DateEnd Date Penelope Casas DO [address] [place] [address] PCP - GeneralFamily Ywvwprtv44/3/22 Jonny Wilcox MD [address] [place] [address] Primary Staff PhysicianCardiology07/16/18 [place] [address] [place] [address] PhysicianHematology/Oncology09/14/21 Davida Restrepo, MARSHA [address] [place] [address] Specialty Care CoordinatorHematology/Oncology09/14/21Team MemberRelationship SpecialtyStart DateEnd Date Penelope Casas MD [address] [facility] [place] [address] PCP - GeneralFamily Medicine11/07/23Team MemberRelationshipSpecialtyStart DateEnd Date Penelope Casas MD [address] [facility] [place] [address] PCP - GeneralFamily Medicine11/07/23Team MemberRelationshipSpecialtyStart DateEnd Date Penelope Casas DO PCP - GeneralFamily Medicine07/07/19Team MemberRelationshipSpecialtyStart DateEnd Date Penelope Casas DO PCP - GeneralFamily Medicine07/07/19Team MemberRelationshipSpecialtyStart DateEnd Date Penelope Casas MD [address] [place] [address] PCP - GeneralFamily Medicine11/07/23Team MemberRelationshipSpecialtyStart DateEnd Date Penelope Casas DO PCP - GeneralFamily Medicine07/07/19Team MemberRelationshipSpecialtyStart DateEnd Date Penelope Casas DO PCP - GeneralFamily Medicine07/07/19Team MemberRelationshipSpecialtyStart DateEnd Date Penelope Casas DO [address] [place] [facility] [place] [address] PCP - GeneralFamily Bhhdqimt36/3/22 Jonny Wilcox MD [address] [place] [address] Primary Staff PhysicianCardiology07/16/18 [place] [address] [place] [address] PhysicianHematology/Oncology09/14/21 Davida Restrepo, MARSHA [address] [place] [address] Specialty Care CoordinatorHematology/Oncology09/14/21Team MemberRelationship SpecialtyStart DateEnd Date Penelope Casas DO PCP - GeneralFamily Medicine07/07/19Team MemberRelationshipSpecialtyStart DateEnd Date Penelope Casas MD [address] [place] [address] PCP - GeneralFamily Medicine11/07/23Team MemberRelationshipSpecialtyStart DateEnd Date Penelope Casas MD [address] [place] [address] PCP - GeneralFamily Medicine11/07/23Team MemberRelationshipSpecialtyStart DateEnd Date Penelope Casas DO PCP - GeneralFamily Medicine07/07/19Team MemberRelationshipSpecialtyStart DateEnd Date Penelope Casas DO PCP - GeneralFamily Medicine07/07/19Team MemberRelationshipSpecialtyStart DateEnd Date Penelope Casas MD [address] [place] [address] PCP - GeneralFamily Medicine11/07/23Team MemberRelationshipSpecialtyStart DateEnd Date Penelope Casas MD [address] [place] [address] PCP - GeneralFamily Medicine11/07/23Team MemberRelationshipSpecialtyStart DateEnd Date Penelope Casas DO PCP - GeneralFamily Medicine07/07/19Team MemberRelationshipSpecialtyStart DateEnd Date Penelope Casas DO [address] [place] [address] PCP - GeneralFamily Pgogkiky49/3/22 Jonny Wilcox MD [address] [place] [address] Primary Staff PhysicianCardiology07/16/18 [place] [address] [place], [place] [address] PhysicianHematology/Oncology09/14/21 Davida Restrepo, MARSHA [address] [place] [address] Specialty Care CoordinatorHematology/Oncology09/14/21Team MemberRelationship SpecialtyStart DateEnd Date Penelope Casas DO PCP - GeneralFamily Medicine07/07/19Team MemberRelationshipSpecialtyStart DateEnd Date Penelope Casas DO PCP - GeneralFamily Medicine07/07/19Team MemberRelationshipSpecialtyStart DateEnd Date Penelope Casas DO PCP - GeneralFamily Medicine07/07/19Team MemberRelationshipSpecialtyStart DateEnd Date Penelope Casas DO PCP - GeneralFamily Medicine07/07/19Team MemberRelationshipSpecialtyStart DateEnd Date Penelope Casas DO PCP - GeneralFamily Medicine07/07/19Team MemberRelationshipSpecialtyStart DateEnd Date Penelope Casas MD [address] [place] [address] PCP - GeneralFamily Medicine11/07/23Team MemberRelationshipSpecialtyStart DateEnd Date Penelope Casas DO PCP - GeneralFamily Medicine07/07/19Team MemberRelationshipSpecialtyStart DateEnd Date Penelope Casas DO PCP - GeneralFamily Medicine07/07/19Team MemberRelationshipSpecialtyStart DateEnd Date Penelope Casas DO PCP - GeneralFamily Medicine07/07/19Team MemberRelationshipSpecialtyStart DateEnd Date Penelope Casas MD [address] [place] [address] PCP - GeneralFamily Medicine11/07/23Team MemberRelationshipSpecialtyStart DateEnd Date Penelope Casas DO PCP - GeneralFamily Medicine07/07/19Team MemberRelationshipSpecialtyStart DateEnd Date Penelope Casas DO PCP - GeneralFamily Medicine07/07/19Team MemberRelationshipSpecialtyStart DateEnd Date Penelope Casas MD [address] [address] PCP - GeneralFamily Medicine11/07/23Team MemberRelationshipSpecialtyStart DateEnd Date Pneelope Casas MD [address] [place] [address] PCP - Generalmily Medicine11/07/23Team MemberRelationshipSpecialtyStart DateEnd Date Penelope Casas MD [address] [place] [address] PCP - Generalmily Medicine11/07/23Team MemberRelationshipSpecialtyStart DateEnd Date Penelope Casas MD [address] [place] [address] PCP - Generalmily Medicine11/07/23Team MemberRelationshipSpecialtyStart DateEnd Date Penelope Casas MD [address] [place] [address] PCP - Generalmily Medicine11/07/23Team MemberRelationshipSpecialtyStart DateEnd Date Penelope Casas MD [address] [place] [address] PCP - Generalmily Medicine11/07/23Team MemberRelationshipSpecialtyStart DateEnd Date Penelope Casas MD [address] [place] [address] PCP - Generalmily Medicine11/07/23Team MemberRelationshipSpecialtyStart DateEnd Date Penelope Casas MD [address] [facility] [place] [address] PCP - GeneralFamily Medicine11/07/23 Reason for Visit (unrecogniz ed section and content) ReasonCommentsFuture AppointmentReasonCommentsPatient QuestionReasonComments Medication QuestionReasonOnset DateCommentsRefill Kkhlmra83/13/2022ReasonOnset DateCommentsRefill Ogvhmhd81/02/2022ReasonCommentsHypercoagulable state6 month follow upReasonCommentsPrimary hypercoagulable state8 week follow upReason CommentsResultsReasonCommentsAppointmentPatient QuestionMedication Question OrdersSpecialtyDiagnoses / ProceduresReferred By ContactReferred To Contact Diagnoses Iron deficiency anemia secondary to blood loss (chronic) Iron deficiency anemia of Procedures INJECTION, FERRIC DERISOMALTOSE, 10 MG Kristofer Calix MD [address] [place] [address] [place] [address] [employer] [address] [place] [address] Referral IDStatusKelseyasonHarwood DateExpiration DateVisits RequestedVisits [id number]/[id number] Request SpecialtyDiagnoses / ProceduresReferred By ContactReferred To Contact Diagnoses Iron deficiency anemia secondary to blood loss (chronic) Iron deficiency anemia of Procedures IRON SUCROSE INJECTION PER 1 MG Kristofer Calix MD [address] [place] [address] [place] [address] [employer] [address] [place] [address] Referral IDStatusKelseyasonStart DateExpiration DateVisits RequestedVisits [id number]/28/20221/[id number] DateCommentsRefill Hkbwozj2007/03/2022ReasonCommentsAnemiaFollow upReasonCommentsOrdersReason CommentsEstablished PatientReasonCommentsAppointmentReasonCommentsLab Orders ReasonCommentsPrimary hypercoagulable state (HCC)Follow upReasonComments Appointment RescheduledSpecialtyDiagnoses / ProceduresReferred By Contact Referred To Contact Diagnoses Iron deficiency anemia of Iron deficiency anemia secondary to blood loss (chronic) Procedures IRON SUCROSE INJECTION PER 1 MG Kristofer Calix MD [address] [place] [address] [place] [address] [address] [employer] [address] [place] [address] Referral IDStatusReasonStart DateExpiration DateVisits RequestedVisits [id number]/20241/[id number] DateCommentsRefill Inegfrz5511/29/2023easonCommentsAmenorrheaReasonOnset DateCommentsRefill Request 4ReasonCommentsRoutine VisitReasonCommentsPatient UpdateReason CommentsAnemiafollowupReasonCommentsfollow up miscarriageReasonCommentsVaginal BleedingDizzinessReasonCommentsIrregular CyclesReasonOnset DateCommentsRefill Rtezmiv7007/25/2024ReasonOnset DateCommentsRefill Qvgkqip9910/20/2024ReasonOnset DateCommentsRefill Clzurvd0010/29/2024ReasonCommentsGestational DiabetesSpecialty Diagnoses / ProceduresReferred By ContactReferred To ContactMaternal and Medicine Diagnoses Gestational diabetes mellitus (GDM), antepartum, gestational diabetes method of control unspecified Wilton Herrmann, DO [address] [place] [address] [place] [address] Phone: tel: fax: [facility]- [facility] at [facility] [address] [place] [address] Phone: tel: fax: Referral IDStatusReasonStart DateExpiration DateVisits RequestedVisits [id number] Review Specialty Services Required [id number]xqthu stateAnemia8 week follow up ReasonCommentsMFM consultReasonCommentsRoutine VisitReasonComments [...] BE BASED ON THE PRIMARY CLINICAL RECORDS. [employer] [facility]. provides no warranty or guarantee of the accuracy or completeness of information in this document.
[2025-04-02 19:46] VITALS: BP 111/62; PULSE 81
== END 2025-04-02 20:11 | disposition home or self-care (01) ==
LOC: US 19:09 → FBC 19:11
PROVIDERS: Visit Provider Obstetrics & Gynecology
DX: O24.419 Gestational diabetes mellitus in pregnancy, unspecified control (principal); Z3A.35 35 weeks gestation of pregnancy
CPT/HCPCS: 76818

== ENCOUNTER 2025-04-06 18:06 | Outpatient (OUT) | payer MEDICAID, SELFPAY ==
--- OUTSIDE RECORDS SUMMARY | 2025-04-06 18:14 | XMS_ITS | CCD ---
Author Organization [facility] CliniSyla Care Team Providers Care Stained Glass Joiner Name Role Phone CROW MONGE Unavailable Unavailable BIBI CHRISTY Unavailable Unavailable ERIKA LONDON Attending Unavailab ERIKA Haddad Referring Unavailab Haseeb Chavez Attending Unavailable Crow Monge Referring Unavailable Humaira Gaviria MD Primary Care Provider [phone] Jonny Wilcox MD Unavailable [phone] Penelope CASAS Primary Care Physician Cheri Norwood Unavailable Unavailable Cosmo Elliott MD Unavailable Lauro RN, Davida Unavailable Penelope Casas Primary Care Provider PENELOPE CASAS Primary Care Unavailable PERVÍCTOR, FALGUNI C Referring Unavailable Humaira Gaviria MD Primary Care Provider [phone] Jonny Wilcox MD Unavailable Cosmo Elliott MD R Unavailable Lauro RN, Davida Unavailable [phone] Penelope Casas DO Primary Care Provider Jonny Wilcox MD P Unavailable [phone] Cosmo Elliott MD R Unavailable [phone] Lauro RN, Davida Unavailable Penelope Casas DO Primary Care Provider DR WILTON HERRMANN Primary Care Unavailable MONTEZ, DR ROQUE Admitting Unavailable MONTEZ, DR ROQUE Attending Unavailable KARASIK, DR ACUNA Consulting Unavailable KARASIK, DR ACUNA Admitting Unavailable KARASIK, DR ACUNA Attending Unavailable MONTEZ, DR ROQUE Primary Care Unavailable MONTEZ, DR ROQUE Consulting Unavailable ZIEBER, DR HUMERA Palmer Consulting Unavailable MONTZE, DR ROQUE Admitting Unavailable MONTEZ, DR ROQUE Attending Unavailable MONTEZ, DR ROQUE Primary Care Unavailable NEWFOLDEN, DR ANGIE Luna Consulting Unavailable MONTEZ, DR [...] DR ROQUE Consulting Unavailable MONTEZ, DR ROQEU Primary Care Unavailable MONTEZ, DR ROQUE Attending [...] Jonny Tsai Unavailable Lauro RN, Davida Unavailable [phone] Penelope Casas DO Primary Care Provider [phone] Penelope CASAS Admitting Unavailable KAPBEN, Penelope Tony [...] CASAS Attending Unavailable Monica Saba Attending Unavailable KAPPneelope CONTRERAS Admitting Unavailable KAPPenelope CONTRERAS Attending Unavailable [...] Unavailable Penelope Casas MD Primary Care Provider [phone] Wilton Herrmann DO Attending Provider Montez, Wilton [...] Unavailable Penelope Casas MD Primary Care Provider [phone] MONTEZ, Wilton R Admitting Unavailable MONTEZ, Wilton [...] of OnsetReaction(s) Facility (20 sources)Ciprofloxacin; Translations: [ciprofloxacin]Drug Ayxeklv35-84-3952 Other: See Comments, Unknown, Numbness and tingling sensation of skin (finding), Nausea (finding), Other (See Comments), GI [facility], [facility]: (20 sources)Ciprofloxacin / fluocinolone; Translations: [CIPROFLOXACIN-FLUOCINOLONE]Drug Sxtrypz72-87-0478Tbxnc: See CommentsKindred Hospital [facility] (20 sources)cow milk allergenic extract; Translations: [MILK]Drug Allergy 25-74-7776Xukgz: See [facility] Work Phone: (20 sources)Lactalbumin; Translations: [LACTALBUMIN]Drug Amraagj66-43-7906 Unknown, GI Upset, Other (See Comments)[facility] (20 sources)Lactose; Translations: [LACTOSE]Drug Clgbsqi78-91-7061MJ Upset, GI DisturbanceKindred Hospital [place] (20 sources)MilkDrug Yeooblh59-07-1625Uzlpw: See Comments, Other (See Comments) [facility] (6 sources)PenicillinsDrug Smzjhvr50-66-1591[facility] (20 sources)Seasonal allergy; Translations: [SEASONAL ALLERGIES]Allergy to tbbcycofk76-85-9862VK Upset, Other: See [facility] Work Phone: (20 sources)Milk Products; Translations: [Milk Products]Drug allergyIllness (finding)[facility] (20 sources)Ciprofloxacin / fluocinoloneDrug Pebjuic15-36-5096Pwdoa (See Comments)[employer] Work Phone: (1 source)Seasonal allergyPropensity to adverse reactions to dxstcdele62-90-6145 Other (See Comments)[employer] Work Phone: (1 source)Milk-Related CompoundsPropensity to adverse reactions to drug 18-57-9290Uqofq (See Comments)[employer] Work Phone: (2 sources)PenicillinsDrug Xhwzxti15-67-2321FqwnyxjRclnvtkmy Clinic (1 source)CiprofloxacinDrug Thzmhes70-55-7283[facility]Mer[facility] (20 sources)Lactose (non-medical use)Propensity to adverse wmqaqhmca66-96-2069 [facility] (20 sources)Lactose (non-medical use)Drug Xvruepe44-64-4428WWZE [facility] (20 sources)OctacosanolDrug Alhitemgsyz07-36-5826[facility] (20 sources)OtherAllergy to rssdjdald51-72-2307JqhslQPBV Healthcare Work Phone: (3 sources)MILK CONTAINING PRODUCTS (DAIRY); Translations: [MILK CONTAINING PRODUCTS (DAIRY)]Propensity to adverse reactions to drug (disorder)05-25-2017 [facility] Medications Current Medications MedicationDrug Class(es)DatesSig (Normalized)Sig (Original)acetaminophen 300 mg / codeine phosphate 30 mg oral tablet (1 source)Opioid AgonistStart: 41-37-4025deqwgwztfcabu-codeine (TYLENOL #3) 300- 30 MG per tabletAlbuterol (Eqv-ProAir HFA) 90 mcg/inh inhalation aerosol (6 sources)Start: 54-65-3906ahcm 2 puff(s) by inhalation every six hours Albuterol (Eqv-ProAir HFA) 90 mcg/inh inhalation aerosol 2 puff(s), Inhalation, q6hr, 1 EA, Refill(s) 5, [facility], 168, cm, 02/02/24 14:43:00 EDT, Height/Length Dosing, 101.1, kg, 02/02/24 14:43:00 EDT, Weight Dosing Start Date: 02/02/24 Status: Orderedazithromycin 250 mg oral tablet (20 sources)Macrolide AntimicrobialStart: 09-08-2024 End: 03-02-9781cwofvnbsevzb (Zithromax Z-Jonny) 250 MG tablet Indications: 5 weeks gestation of ([facility] As directed 6 tablet 09/08/2024 10/30/2024 Discontinued (Therapy completed)Start: 06-19-2024 End: 03-35-3668Msqnocdin 250 mg Tab = 1 packet(s), Oral, As Directed, as directed on package labeling, X 5 day(s),# 6 tab(s), Refills(s) 1, Pharmacy: [facility] 1986, 168, cm, 06/09/24 14:03:00 EST, Height/Length Dosing, 98.4, kg, 06/19/24 16:19:00 EST, Weight Dosing Start Date: 06/19/24 Stop Date: 06/29/24 Status: OrderedStart: 04-21-2024 End: 53-45-8206asqpyfcdidvw (Zithromax Z-Jonny) 250 MG tablet Indications: Upper respiratory tract infection, unspecified type As directed 6 tablet 04/21/2024 05/06/2024 Discontinuedazithromycin 250 mg Tab 5-day Dose Pack (Z-Jonny) (2 sources)Start: 02-02-2024 End: 45-72-9662oxmiplvtoryk 250 mg Tab 5-day Dose Pack (Z-Jonny) = 1 packet(s), Oral, As Directed, as directed on package labeling, X 5 day(s), # 6 tab(s), Refills(s) 0, Pharmacy: [facility], 168, cm, 02/02/24 14:43:00 EDT, Height/Length Dosing, 101.1, kg, 02/02/24 14:43:00 EDT, Weight Dosing Start Date:02/02/24 Stop Date: 02/07/24 Status: OrderedBlood Glucose Monitoring Suppl (D-Care Glucometer) w/Device kit (20 sources)Start: 10-30-2024 End: 10-14-5138Pcujt Glucose Monitoring Suppl (D-Care Glucometer) w/Device kit Indications: Second trimester ([facility]) , 13 weeks gestation of ([facility]) , Multigravida of advanced maternal age in second trimester ([facility]) , Gestational diabetes mellitus (GDM), antepartum, gestational diabetesmethod of control unspecified ([facility]) , Elevated glucose tolerance test 1 kit Daily Use four times daily to check FSBS. In the morning prior to breakfast & 1 hour after each meal for a total zn7vnarf daily. 1 kit 10/30/2024 10/30/2025 Activeblood-glucose meter (BLOOD GLUCOSE MONITORING) kit (20 sources)blood-glucose meter (BLOOD GLUCOSE MONITORING) kit 1 each by other route in the morning. Use to check blood sugar 4 times daily . Activeblood- glucose sensor (FREESTYLE JENIFER 3 PLUS SENSOR) device (13 sources)Start: 10-51-1965qnvs 2 doses by mouth onceblood-glucose sensor (FREESTYLE JENIFER 3 PLUS SENSOR) device Indications: Gestational diabetes mellit us (GDM) in second trimester controlled on oral hypoglycemic drug Wear for 15 days and change 2 each 6 12/26/2024 Activecephalexin 500 mg oral tablet (20 sources)Cephalosporin AntibacterialStart: 08-19-2021 End: 66-03-8328fkhe 1 tablet by mouth twice dailycephalexin 500 mg oral tablet 500 mg = 1 tab(s), Oral, BID, X 10 day(s), # 20 tab(s), Refills(s) 0,Pharmacy: [facility], 168, cm, 08/19/21 10:50:00 [...] suspension (2 sources)Corticosteroid, Quinolone AntimicrobialStart: 10-23-2023 End: 96-55-1885Mxzmfops 0.3%-0.1% Susp-Otic 4 drop(s), Otic, BID for 7 day(s), 7.5 mL, Refill(s) 0, [facility]/pharmacy #[id number], 168, cm, 10/23/23 16:55:00 EDT, Height/Length Dosing, 106.2, kg, 10/23/23 16:55:00 EDT, WeightDosing Start Date: 10/23/23 Stop Date: 10/30/23 Status: OrderedStart: 02-15-2023 End: 27-08-2083Qayajomc 0.3%-0.1% Susp-Otic 4 drop(s), Otic, BID for 7 day(s), 7.5 mL, Refill(s) 0, Only use if drainage or pain of ear shake well before using, [facility], 168, cm, 02/15/23 9:49:00 [...] (20 sources)Low Molecular Weight HeparinStart: 01-19-2025 End: 38-83-7159Wghblsevzh Sodium (Lovenox) 40 MG/0.4ML solution prefilled syringe Indications: Anticoagulant long-term use , Antiphospholipid antibody positive , Antiphospholipid antibody syndrome ([facility]) Inject 40 mg as directed Daily for 30 doses 12 mL 3 01/19/2025 02/18/2025 ActiveStart: 01-09-2025 End: 69-41-8934ygsark 0.4 mL by subcutaneous injection onceenoxaparin (LOVENOX) 40 mg/0.4 mL syringe Indications: Antiphospholipid syndrome Inject 0.4 mL (40 mg total) under the skin Every 12 (twelve) hours. 24 mL 6 01/13/2025 ActiveStart: 05-03-2023 End: 36-29-3747sfnyzceoug (LOVENOX) 40 mg/0.4 mL Indications: Primary hypercoagulable state (HCC) , CVA, old, speech/language deficit , Cerebral hyponatremia INJECT 1 SYRINGE SUBCUTANEOUSLY EVERY 24 HOURS 90 mL 10/29/2024 ActiveStart: 04-06-2022 End: 12-87-0456bsjjmuvqit (LOVENOX) 40 mg/0.4 mL Indications: Primary hypercoagulable state (HCC) , CVA, old, speech/language deficit , Cerebral hyponatremia INJECT THE CONTENTS OF ONE SYRINGE (0.4 ML) SUBCUTANEOUSLY EVERY 24 HOURS 90 mL 2 09/28/2022 ActiveStart: 09-06-2021 End: 78-61-3141qbrvnd 0.8 mL by subcutaneous injection twice dailyenoxaparin (LOVENOX) 80 mg/0.8 mL Indications: Primary hypercoagulable state (HCC) Inject 0.8 mL subcutaneously twice daily. 48 mL 5 09/06/2021 10/06/2021 ActiveStart: 04-07-2020 End: 02-37-7394oegjcq 0.4 mL by subcutaneous injection every twenty-four hours enoxaparin (LOVENOX) 40 mg/0.4 mL Indications: Primary hypercoagulable state (HCC) , CVA, old, speech/language deficit , Cerebral hyponatremia Inject 0.4 mL subcutaneously every 24 hours. 36 mL 0 12/30/2021 03/30/2022 Active End: 44-93-5889nyyplx 40 mg by subcutaneous injection in the [...] enoxaparin (LOVENOX) 40 MG/0.4ML injection (1 source)Start: 90-69-9274yvsignosfl (LOVENOX) 40 MG/0.4ML injection Inject 0.4 mLs into the skin daily 16 mL 1 02/20/2020 Activeenoxaparin (Lovenox) 40 MG/0.4ML injection (20 sources)enoxaparin (Lovenox) 40 MG/0.4ML injection 1 (one) time each day at the same time Activefamotidine 40 mg oral tablet (20 sources)Histamine-2 Receptor AntagonistStart: 62-32-7201ladl 1 tablet by mouth once daily at bedtimePepcid 40 mg Tab 40 mg = 1 tab(s), Oral, Once a day (at bedtime), # 90 tab(s), Refills(s) 4, Pharmacy: [facility], 168, cm, 06/30/24 8:36:00 EST, Height/Length Dosing, 97.2, kg, 06/30/24 8:36:00 EST, Weight Dosing Start Date: 06/30/24 Status: Ordered Quantity: 90.0 Unit: tab(s) Repeat number: 5Start: 11-29-2023 End: 80-04-2464eeoc 1 tablet by mouth once dailyfamotidine (PEPCID) 20 mg tablet Take 1 tablet by mouth once daily. To take prior to infusion 1 tablet 11/29/2023 10/28/2024 Discontinued (Discontinued by Patient)Start: 11-29-2023 End: 69-37-4235nhfhupkiid 20 mg injection (PEPCID)fluconazole 150 mg oral tablet (6 sources)Azole AntifungalStart: 21-85-2907Yqmwhupx 150 mg Tab 150 mg = 1 tab(s), Oral, q7day, # 4 tab(s), Refills(s) 1, Pharmacy: [facility], 168, cm, 06/09/24 14:03:00 EST, Height/Length Dosing, 98.4, kg, 06/19/24 16:19:00 EST, Weight Dosing Start Date: 06/19/24 Status: Ordered Quantity: 4.0 Unit: tab(s) Repeat number: 2 Indication: Candidiasis, unspecifiedfluticasone propionate 0.05 mg/actuat metered dose nasal spray (20 sources)CorticosteroidStart: 11-20-2024 End: 59-34-7619edla 1 spray(s) nasal route once dailyfluticasone (Flonase) 50 MCG/ACT nasal spray Indications: Sinus headache Administer 1 spray into each nostril Daily Shake gently. Before first use, prime pump. After use, clean tip and replace cap. 16 g 3 11/20/2024 11/20/2025 ActiveStart: 90-31-0416Fgdbwbv 0.05 mg/inh Edroy 2 spray(s), Nasal, Daily, 16 gram, Refill(s) 11, each nostril, [facility]/pharmacy #[id number], 168, cm, 06/09/24 14:03:00 EST, Height/Length Dosing, 99.1, kg, 06/09/24 14:03:00 EST, Weight Dosing Start Date: 06/09/24 Status: Ordered Quantity: 16.0 Unit: g Repeat number: 12Start: 99-28-0152Wtbsdse 0.05 mg/inh Edroy 2 spray(s), Nasal, Daily, 16 gram, Refill(s) 11, each nostril, [id number], 168, cm, 06/09/24 14:03:00 EST, Height/Length Dosing, 99.1, kg, 06/09/24 14:03:00 EST, Weight Dosing Start Date: 06/09/24 Status: OrderedStart: 06-45-2606Gcdptvw 0.05 mg/inh Edroy 2 spray(s), Nasal, Daily, 16 gram, Refill(s) 0, each nostril Start Date: 08/03/23 Status: Orderedisopropyl alcohol 0.7 ml/ml medicated pad (20 sources)Start: 95-00-6214Vybpgev Swabs (Alcohol Prep Pad) 70 % pads Indications: Second trimester ([facility]) , 13 weeks gestation of ([facility]) , Multigravida of advanced maternal age in second trimester ([facility]) , Gestational diabetes mellitus (GDM), antepartum, gestational diabetes method of control unspecified ([facility]) , Elevated glucose tolerance test Apply 1 Pad topically Daily Use four times daily to check FSBS. 150 each 3 10/30/2024 Activelevothyroxine sodium 0.025 mg oral tablet (20 sources)l-ThyroxineStart: 46-90-6924pkinsygamjjrp 25 mcg (0.025 mg) Tab 25 mcg = 1 tab(s), Oral, Daily, Dr. Celaya, # 30 tab(s), Refills(s) 0 Start Date: 06/09/24 Status: Ordered Quantity: 30.0 Unit: tab(s) Repeat number: 1Start: 06-02-2024 End: 15-89-8455nqmv 1 tablet by mouth before mealtimelevothyroxine (Synthroid) 50 MCG tablet Indications: History of thyroid disease Take 1 tablet (50 mcg) by mouth in the morning. Take before meals. 30 tablet 11 06/02/2024 06/23/2024 DiscontinuedStart: 02-25-2024 End: 60-82-8578rrgn 1 tablet by mouth before mealtimelevothyroxine (Synthroid) 25 MCG tablet Indications: Abnormal TSH Take 1 tablet (25 mcg) by mouth in the morning. Take before meals. 30 tablet 11 06/23/2024 06/23/2025 ActiveStart: 08-24-2021 End: 46-25-3825raofxktaknxkj (SYNTHROID) 25 mcg tablet Take 25 mcg by mouth. 0 08/24/2021 09/26/2023 Discontinued End: 12-70-8441vffc 3 tablets by mouth once dailylevothyroxine (Synthroid) 25 MCG tablet Take 75 mcg by mouth 1 (one) time each day at the same time05/06/2024 DiscontinuedComment on above:Take 25 mcg by mouth.Lovenox 40 mg/0.4 mL Injection (20 sources)Start: 34-67-3620kjknml 40 mg by subcutaneous injection every twenty-four hoursLovenox 40 mg/0.4 mL Injection 40 mg, SubCutaneous, q24hr, # 7 EA, Refills(s) 0, Blood Thinner Start Date: 04/07/20 Status: Ordered Quantity: 7.0 Unit: EA Repeat number: 1Start: 75-72-2109ynpysp 40 mg by subcutaneous injection every twenty-four hoursLovenox 40 mg/0.4 mL Injection 40 mg, SubCutaneous, q24hr, # 7 EA, Refills(s) 0, Blood Thinner Start Date: 04/07/20 Status: Qiotrzn25 hr metFORMIN hydrochloride 500 mg extended release oral tablet (20 sources)BiguanideStart: 25-22-0025ktfXKRXAC XR (GLUCOPHAGE XR) 500 mg 24 hr tablet Take 500 AM and 1000 mg at night. 90 tablet 4 03/11/2025 ActiveStart: 01-19-2025 End: 08-04-0029kbmz 3 tablets by mouth every twenty-four hours at mealtime metFORMIN XR (Glucophage-XR) 500 MG 24 hr tablet Indications: Gestational diabetes mellitus (GDM), antepartum, gestational diabetes method of control unspecified ([facility]) Take 3 tablets (1,500 mg) by mouth in the evening. Take with meals Do not crush, chew, or split. 90 tablet 3 01/19/2025 ActiveStart: 01-01-2025 End: 34-57-5346iscJREPGT XR (GLUCOPHAGE XR) 500 mg 24 hr tablet Take 1500 mg at night. 90 tablet 4 01/01/2025 03/11/2025 DiscontinuedStart: 12-17-2024 End: 06-16-4106kmrFNSDQM XR (GLUCOPHAGE XR) 500 mg 24 hr tablet Take 1000 mg at night. 90 tablet 4 12/17/2024 01/01/2025 DiscontinuedStart: 05-13-2024 End: 37-25-4069qait 2 tablets by mouth every twenty-four hours at mealtime metFORMIN XR (Glucophage-XR) 500 MG 24 hr tablet Indications: Insulin resistance Take 2 tablets (1,000 mg) by mouth in the evening. Take with meals Do not crush, chew, or split. 60 tablet 11 05/13/2024 06/02/2024 DiscontinuedStart: 11-27-2023 End: 39-68-7938kees 1 tablet by mouth once dailymetFORMIN XR (Glucophage-XR) 500 MG 24 hr tablet Indications: Insulin resistance Take 1 tablet (500mg) by mouth 1 (one) time each day at the same time 30 tablet 11 09/18/2024 01/19/2025 DiscontinuedStart: 63-96-8622BaiOIGRTW (Eqv-Glucophage XR) 500 mg oral tablet, extended release 1,000 mg = 2 tab(s), Oral, Daily, Refills(s) 0 Start Date: 10/20/22 Status: Ordered Repeat number: 1Start: 03-26-2022 End: 94-04-9988lidCNQNDX XR (GLUCOPHAGE XR) 500 mg 24 hr [...] tablet by mouth once daily.polyethylene glycol 3350 19066 mg powder for oral solution (20 sources)Osmotic Laxativepolyethylene glycol (GLYCOLAX) 17 gram packet Take 17 g by mouth in the morning. ActivePolyethylene Glycols (4 sources)polyethylene glycol 3350 (MIRALAX PO) Take by mouth. ActivePRENATAL 19 29 mg iron- 1 mg tablet,chewable (20 sources)Start: 11-11-1100UYXNJHBO 19 29 mg iron- 1 mg tablet,chewable Chew 1 tablet and swallow in the morning. 6 10/31/2018ActiveStart: 80-03-5579HIKDMKQH 19 29 mg iron- 1 mg tablet,chewable Chew 1 tablet and swallow daily. 6 10/31/2018 ActivePrenatal Vit-Fe Fumarate-FA ( PO) (1 source)Start: 37-13-3426Iwwmongf Vit-Fe Fumarate-FA ( PO) Take 1 tablet by mouth 0 10/31/2018 Activeprogesterone 200 mg oral capsule (20 sources)Progesteronetake 1 capsule by mouth in the morningprogesterone (PROMETRIUM) 200 mg capsule Take 1 capsule (200 mg total) by mouth in the morning. ActiveProgesterone 200 MG suppository (6 sources)Start: 09-18-2024 End: 53-26-7451Auyyxbytmwsd 200 MG suppository Indications: History of miscarriage Insert 200 mg into the vagina at bedtime Insert suppository vaginally every night at bedtime until 12 weeks gestation 30 suppository 3 09/18/2024 10/30/2024 Discontinued (Therapy completed)Start: 09-18-2024 End: 27-38-7575Nniknikdfreo 200 MG suppository Indications: History of miscarriage Insert 200 mg into the vagina at bedtime Insert suppository vaginally every night at bedtime until 12 weeks gestation 30 suppository 3 09/18/2024 12/17/2024 ActiveStart: 09-01-2024 End: 84-22-4953Kcslljyhrsjt 200 MG suppository Indications: History of miscarriage Insert 200 mg into the vagina at bedtime Insert suppository vaginally every night at bedtime until 12 weeks gestation 30 suppository 2 09/01/2024 11/30/2024 Activeprogesterone vaginal suppository 200 mg (CPD) (4 sources)progesterone vaginal suppository 200 mg (CPD) Use 200 mg vaginally. Unwrap and insert as directed. Activeterconazole 4 mg/ml vaginal cream (3 sources)Azole AntifungalStart: 06-23-2024 End: 16-81-0962xbnrwklvnnp (Terazol 7) 0.4 % vaginal cream Indications: Vaginal discharge Insert 1 applicator intothe vagina at bedtime for 7 days 45 g 06/23/2024 06/30/2024 ActiveVentolin HFA 90 mcg/inh Aerosol-Adpt (1 source)Start: 09-07-2024 End: 29-99-9199vuey 2 puff(s) by inhalation every six hours for wheezingVentolin HFA 90 mcg/inh Aerosol-Adpt 2 puff(s), Inhalation, q6hr for wheezing for 7 day(s), 8 gm, Refill(s) 0, [facility], 167, cm, 09/07/24 10:01:00 EDT, Height/Length Dosing, 96.4, kg, 09/07/24 10:01:00 EDT, Weight Dosing Start Date: 09/07/24 Stop Date: 09/14/24 Status: Ordered Quantity:8.0 Unit: g Repeat number: 1 Indication: Acute upper respiratory infection, unspecifiedVitamin D (20 sources)Start: 64-09-2525Wqzmsgu D 2,000 International_Unit, Oral, qWeek, Refills(s) 0 Start Date: 08/03/23 Status: Ordered Repeat number: 1Start: 76-99-9986Hqbscaj D 2,000 International_Unit, Oral, qWeek, Refills(s) 0 Start Date: 08/03/23 Status: Ordered Completed/Discontinued Medications MedicationDrug Class(es)DatesSig (Normalized)Sig (Original)aspirin 81 mg chewable tablet (5 sources)Platelet Aggregation Inhibitor, Nonsteroidal Anti-inflammatory Drug End: 91-41-9205ejpgmbh 81 MG chewable tablet Chew 81 mg in the morning. 05/06/2024 Discontinued1 ml dexamethasone phosphate 4 mg/ml injection (1 source)CorticosteroidStart: 11-29-2023 End: 42-03-3520fddPWVDAdwdnc sodium phosphate 8 mg injection (DECADRON)3 ml insulin glargine 100 unt/ml pen injector (6 sources)Insulin AnalogStart: 12-03-2024 End: 46-97-5189jctaqbc glargine (LANTUS SOLOSTAR U-100 INSULIN) 100 unit/mL (3 mL) insulin pen Prime with 2 units then inject 4 units SQ into abd 15 mL 3 12/03/2024 12/17/2024 Discontinued (Allergic response)insulin isophane, human 100 unt/ml injectable suspension (10 sources)Start: 12-26-2024 End: 04-15-1499mkyc 8 [IU] by mouth once dailyinsulin NPH (HumuLIN N,NovoLIN N) 100 unit/mL injection Indications: Gestational diabetes mellitus (GDM) in second trimester controlled on oral hypoglycemic drug Inj sbq in abd 8 units nightly 10 mL 6 12/26/2024 02/06/2025 Discontinued (Patient Never Started This Medication)iron sucrose 300 mg in NaCl 0.9% 250 mL (VENOFER) (3 sources)Start: 11-29-2023 End: 14-87-8870coll sucrose 300 mg in NaCl 0.9% 250 mL (VENOFER)Start: 11-22-2023 End: 83-72-4498ztcx sucrose 300 mg in NaCl 0.9% 250 mL (VENOFER)Start: 11-15-2023 End: 59-51-8953lqfi sucrose 300 mg in NaCl 0.9% 250 mL (VENOFER)multivitamin (MULTIPLE VITAMINS) tablet (7 sources)take 1 tablet by mouth once dailymultivitamin (MULTIPLE VITAMINS) tablet Take 1 tablet by mouth once daily. 0 ActiveComment on above:Take 1 tablet by mouth once daily.ondansetron 4 mg disintegrating oral tablet (4 sources)Serotonin-3 Receptor AntagonistStart: 04-14-2024 End: 03-37-1834uvbg 1 tablet by mouth every six hours for nauseaondansetron ODT (Zofran-ODT) 4 MG disintegrating tablet Indications: Nausea and vomiting in Take 1 tablet (4 mg) by mouth every 6 (six) hours if needed for nausea or vomiting 30 tablet 2 04/14/2024 05/06/2024 DiscontinuedStart: 03-07-2024 End: 59-52-4219pdpv 1 tablet by mouth every six hours as needed for nausea and vomiting and nausea and nauseaondansetron ODT (Zofran-ODT) 4 MG disintegrating tablet Indications: Nausea Take 1 tablet (4 mg) bymouth every 6 (six) hours if needed for nausea or vomiting 30 tablet 2 03/07/2024 04/06/2024 Active polysaccharide iron complex 391 mg oral capsule (20 sources)Start: 03-06-2022 End: 38-31-4586ZED FE 180 mg iron cap Problems Active Problems Problem ClassificationProblemDateDocumented DateEpisodic/ChronicAcute cerebrovascular disease (20 sources)Cerebral infarction; Translations: [Cerebral infarction, unspecified]Onset: 05-16-2019 Resolved: [id number] disorders (20 sources)Anxiety; Translations: [Anxiety disorder, unspecified]Onset: [id number] dysrhythmias (20 sources)Supraventricular tachycardia; Translations: [Supraventricular tachycardia]Onset: [id number]uy and hemorrhagic disorders (20 sources)Antiphospholipid syndrome; Translations: [Hypercoagulability state] Onset: [id number]p and other anemia (20 sources)Iron 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; Translations: [Iron deficiency anemia secondary to blood loss (chronic)]Onset: 20-61-1685Mfbnodz Deficiency and other anemia (1 source)Iron deficiency anemia secondary to blood loss (chronic); Translations: [Iron deficiency anemia secondary to blood loss (chronic)]Onset: 56-18-9208JsfxwahIthkpobp or abnormal glucose tolerance complicating ; childbirth; or the puerperium (20 sources)Gestational diabetes mellitus in , unspecified control; Translations: [Gestational diabetes mellitus in childbirth, unspecified control] Onset: 32-03-2148KcbghbpbLkkjtsbmh of teeth and jaw (11 sources)Temporomandibular wkbre-ecfj-akkmeaxddoa syndrome; Translations: [Arthralgia of temporomandibular joint]Onset: 698941-46-8664Ctpysmyi Esophageal disorders (20 sources)Laryngopharyngeal reflux; Translations: [Gastro-esophageal reflux disease without esophagitis]Onset: 670933-67-6439TsishtbKgahrupw; including migraine (2 sources)Sinus headache; Translations: [Sinus headache]83-21-1717DmpwvfhyYycx effects of cerebrovascular disease (20 sources)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; Translations: [Other speechand language deficits following cerebral infarction]Onset: 54-15-8746CwmlatyQrpcxqkunf disorders (1 source)Hormone replacement therapy; Translations: [HORMONE REPLACEMENT THERAPY]Onset: 14-39-3026OzicaummFcxhbtyqk disorders (20 sources)Irregular menstruation, unspecified; Translations: [Missed period] Onset: 02-82-1644YesfywnJtazhgvkiyjeg mental health disorders (20 sources)Psychogenic hyperventilation; Translations: [Other somatoform disorders]Onset: 469800-59-1908FtwyjyfMxwmzoaq sclerosis (1 source)Multiple sclerosis; Translations: [Multiple sclerosis]Onset: 90-73-7936HsyieerDhojxlhaaks deficiencies (20 sources)Vitamin D deficiency; Translations: [Vitamin D deficiency, unspecified]Onset: 638241-10-4933LshxpemDjslr aftercare (1 source)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; Translations: [OTH [facility] CURRENT DRUG THERAPY]Onset: 45-45-8647XxpkeuiuJsapk aftercare (1 source)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; Translations: [FCI USE ORAL HYPOGLYCEMIC DX]Onset: 86-57-7587QvzhctmrUndvv aftercare (2 sources)H/O: miscarriage; Translations: [Encounter for other specified aftercare]84-98-9928KwxnwpyoAfwzs circulatory disease (4 sources)History of cerebrovascular disease; Translations: [Personal history of transient ischemic attack (TIA), and cerebral infarction without residual deficits]Onset: 253636-44-6794FwliyrdtCmdcq circulatory disease (3 sources)Personal history of transient ischemic attack (TIA), and cerebral infarction without residual deficits; Translations: [PERS HX TIA AND CI NO RESID DEFICIT]Onset: 81-92-5897YduehslpDoeuc circulatory disease (1 source)History of transient ischemic attack; Translations: [Personal history of transient ischemic attack (TIA), and cerebral infarction without residual deficits]57-39-1459UcqlaqdhBlatz complications of ; puerperium affecting management of mother (20 sources)Anemia in mother complicating childbirth; Translations: [Anemia complicating childbirth]Onset: 639112-55-1669TzkmamdZlclg complications of ; puerperium affecting management of mother (1 source)Other diseases of the blood and blood-forming organs and certain disorders involving the immune mechanism complicating childbirth; Translations: [OTH DZ BLD BFO IMMUN COMP CHILDBRTH]Onset: 53-06-5218QfmaiozsTqcib complications of ; puerperium affecting management of mother (1 source)Endocrine, nutritional and metabolic diseases complicating childbirth; Translations: [ENDOCRN NUTR MET DZ COMP CHILDBIRTH]Onset: 41-03-6376Awwhjogc Other complications of ; puerperium affecting management of mother (1 source)Streptococcus B carrier state complicating childbirth; Translations: [STREP B QUIROZ STATE COMP CHILDBIRTH]Onset: 31-22-4641MfxbzqarBwhro complications of (20 sources)Iron deficiency anemia of ; Translations: [Anemia complicating , unspecified trimester]Onset: 38-28-1008ZjbkimkQvlsj complications of (1 source)Endocrine, nutritional and metabolic diseases complicating , third trimester; Translations: [ENDOCRN NUTR MET DZ COMP PG 3RD TRI]Onset: 79-84-2300DpdywkokUbufz complications of (5 sources)Supervision of elderly multigravida, third trimester; Translations: [SUP ELDER MULTIGRAVIDA THIRD TRI]Onset: 05-33-8877XpxrdrscNnaiv complications of (1 source)Other diseases of the blood and blood-forming organs and certain disorders involving the immune mechanism complicating , third trimester; Translations: [OTH DZ BLD BFO IMMN COMP PG 3RD TRI]Onset: 05-04-2022 EpisodicOther complications of (1 source)Maternal care for excessive growth, third trimester, not applicable or unspecified; Translations: [MAT CARE EXCSS FTL GRTH 3RD TRI UNS] Onset: 80-06-7808ZxvticnqJvvcf complications of (20 sources)History of with abortive outcome; Translations: [Supervision of with other poorreproductive or obstetric history, second trimester]Onset: 801881-11-3599LpjaoehjSudoj complications of (3 sources)Hypothyroidism in ; Translations: [Endocrine, nutritional and metabolic diseases complicating , second trimester]01-02-2025 EpisodicOther ear and sense organ disorders (20 sources)Otitis externa of right ear; Translations: [Unspecified otitis externa, right ear]Onset: 05-79-7012GsnoaxwFbxvr ear and sense organ disorders (7 sources)Otitis fipqram98-02-9701LjyeryuUlbcb endocrine disorders (20 sources)Hypoglycemia; Translations: [Hypoglycemia, unspecified]Onset: 409832-57-9871PhactojQevde female genital disorders (2 sources)Vaginal bleeding; Translations: [Abnormal uterine and vaginal bleeding, unspecified]87-94-7702UufthvlCnvos female genital disorders (4 sources)Vaginal discharge; Translations: [Other specified noninflammatory disorders of vagina]39-29-8046WinrkiwwNttuv hematologic conditions (1 source)H/O: blood disorder; Translations: [Personal history of diseases of the blood and blood-forming organs and certain disorders involving the immune mechanism]Onset: 94-90-9920DduzdtvzDpmxn lower respiratory disease (9 sources)Qxynm59-85-7375JcnwarnmEvdzt nervous system disorders (1 source)Idiopathic progressive neuropathy; Translations: [Idiopathic progressive neuropathy]Onset: 87-54-3435XwvphztCewjg nervous system disorders (20 sources)Neuropathy; Translations: [Idiopathic progressive neuropathy]Onset: 622507-82-2841SsozkiwOldcu nervous system disorders (3 sources)Paresthesia; Translations: [Paresthesia of skin]Onset: 05-16-2019 EpisodicOther nervous system disorders (9 sources)Muscle -05-3744TbifupugRsphz nervous system disorders (6 sources)Facial tpqzlsnqizm82-12-2861EnyaepiaKtlct nutritional; endocrine; and metabolic disorders (10 sources)Obese class II; Translations: [Body mass index (BMI) 36.0-36.9, adult]Onset: 86-78-1607PiruyenGsjdl nutritional; endocrine; and metabolic disorders (20 sources)Obesity; Translations: [Other obesity]Onset: 286718-00-5218 ChronicOther nutritional; endocrine; and metabolic disorders (20 sources)Morbid obesity; Translations: [Morbid (severe) obesity due to excess calories]Onset: 25-70-9287YrkpggoBpmyz nutritional; endocrine; and metabolic disorders (3 sources)Hypercalcemia; Translations: [Hypercalcemia]74-92-3851IgcnwkcNewdk nutritional; endocrine; and metabolic disorders (20 sources)Body mass index 30+ - obesity; Translations: [Body mass index (BMI) 37.0-37.9, adult]Onset: 334336-86-6750BaoxggjKeigs nutritional; endocrine; and metabolic disorders (1 source)Obese class I; Translations: [Body mass index (BMI) 34.0-34.9, adult] Onset: 72-33-6868YystfnbGbmij nutritional; endocrine; and metabolic disorders (1 source)H/O: Disorder; Translations: [Personal history of other endocrine, nutritional and metabolic disease]Onset: 56-06-7394WprwqjxpPtqbp nutritional; endocrine; and metabolic disorders (2 sources)H/O: thyroid disorder; Translations: [Personal history of other endocrine, nutritional and metabolic disease]98-73-6794NynvuaziXfiet screening for suspected conditions (not mental disorders or infectious disease) (12 sources)Encounter for screening for malignant neoplasm of cervix; Translations: [Encounter for screening for diabetes mellitus]Onset: 10-28-2021 EpisodicOther skin disorders (1 source)Podopompholyx; Translations: [Dyshidrosis [pompholyx]]Onset: 18-82-7737SkmokhxxKpevv upper respiratory disease (20 sources)Allergy to ieohwp57-72-1223CmlnhpjMwfum upper respiratory disease (1 source)Polyp of nasal sinus; Translations: [Nasal polyp, unspecified]Onset: 44-12-0032BferlywlComib upper respiratory infections (8 sources)Chronic sinusitis; Translations: [Chronic sinusitis, unspecified] Onset: 73-01-2981WzhxeqyOptyaxlj codes; unclassified (1 source)Sleep disorder; Translations: [Other sleep disorders]Onset: 10-20-2022 ChronicResidual codes; unclassified (20 sources)Obstructive sleep apnea syndrome; Translations: [Obstructive sleep apnea (adult) (pediatric)]Onset: 210219-24-8995BcunmobSkarouya codes; unclassified (8 sources)Patient encounter status; Translations: [Other specified health status]Onset: 93-39-5478LounljukDkohhjvu codes; unclassified (1 source)39 weeks gestation of ; Translations: [39 WEEKS GESTATION OF ]Onset: 06-02-5556PatsoktxQscirjfn codes; unclassified (1 source)Family history of diabetes mellitus; Translations: [FAMILY HISTORY OF DIABETES MELLITUS]Onset: 43-02-8859ImplqffeQwboqgsp codes; unclassified (1 source)Family history of stroke; Translations: [FAMILY HISTORY OF STROKE] Onset: 01-50-7155KcjcsemjRlwqecjs codes; unclassified (1 source)38 weeks gestation of ; Translations: [38 WEEKS GESTATION OF ]Onset: 77-15-1457CpotbropEheswnfc codes; unclassified (1 source)37 weeks gestation of ; Translations: [37 WEEKS GESTATION OF ]Onset: 21-94-1256KpqikbktEkfphamp codes; unclassified (1 source)35 weeks gestation of ; Translations: [35 WEEKS GESTATION OF ]Onset: 82-87-0037FldrmlszWvwgewco codes; unclassified (1 source)34 weeks gestation of ; Translations: [34 WEEKS GESTATION OF ]Onset: 38-01-2626LxpotnptZyswfgyz codes; unclassified (1 source)33 weeks gestation of ; Translations: [33 WEEKS GESTATION OF ]Onset: 27-72-2425WxszausoNlsqjppu codes; unclassified (1 source)32 weeks gestation of ; Translations: [32 WEEKS GESTATION OF ]Onset: 37-60-0830CikmdfnbLidwudrp codes; unclassified (1 source)31 weeks gestation of ; Translations: [31 WEEKS GESTATION OF ]Onset: 70-54-4766VardjesaKdkjjrtq codes; unclassified (20 sources)Sleep bekgosna89-49-2150IhbzlyddMebmqkjq codes; unclassified (1 source)Localized edema; Translations: [Localized edema]Onset: 11-09-2023 EpisodicResidual codes; unclassified (2 sources)Gestation period, 14 weeks; Translations: [14 weeks gestation of ]27-41-5272IsgzrohcEwhicgoo codes; unclassified (2 sources)Gestation period, 13 weeks; Translations: [13 weeks gestation of ]41-27-9073FwswzzfqUmijzoqu codes; unclassified (2 sources)Gestation period, 16 weeks; Translations: [16 weeks gestation of ]02-53-7834UwmsxffbWkeszkcs codes; unclassified (2 sources)Gestation period, 19 weeks; Translations: [19 weeks gestation of ]46-05-7372XawhwaejFpmgcfap codes; unclassified (3 sources)Gestation period, 22 weeks; Translations: [22 weeks gestation of ]66-33-9338WjsxhzcnGhxuzwxd codes; unclassified (3 sources)Family history of autism; Translations: [Family history of other mental and behavioral disorders]82-86-7543QcnfgchsXsqxtwcp codes; unclassified (2 sources)Gestation period, 23 weeks; Translations: [23 weeks gestation of ]13-63-9023MzlqtnvqJpkcbllw codes; unclassified (2 sources)Gestation period, 25 weeks; Translations: [25 weeks gestation of ]61-09-5128YdhzwmouOrurphtv codes; unclassified (1 source)Gestation period, 27 weeks; Translations: [27 weeks gestation of ]88-66-6859DpmmbdbmMoklrvot codes; unclassified (1 source)22 weeks gestation of ; Translations: [22 weeks gestation of ]Onset: 53-67-3724FltjwbrxVjsxocwe codes; unclassified (2 sources)Gestation period, 28 weeks; Translations: [28 weeks gestation of ]15-41-5810BngzbxppIfazrggj codes; unclassified (1 source)Gestation period, 29 weeks; Translations: [29 weeks gestation of ]27-50-4207VbtdztgoGnyiqfhn codes; unclassified (2 sources)Gestation period, 30 weeks; Translations: [30 weeks gestation of ]47-76-4197LocovvqiHgwepqj disorders (20 sources)Hypothyroidism; Translations: [Hypothyroidism, unspecified]Onset: 432696-63-2161AzqkijyFxtnmlq disorders (20 sources)Disorder of thyroid, unspecified; Translations: [Disorder of thyroid gland]Onset: 175879-16-4738EsrcueycHfssltypx cerebral ischemia (1 source)Transient cerebral ischemia; Translations: [Transient cerebral ischemic attack, unspecified]Onset: 948447-95-6284GvfvkruGmvvpwwbfwuq (20 sources)History of DVVE-RhS-726-11-2022Unclassified (20 sources)Inhalation gsmsuq93-38-1803Zxdhwawidhdm (20 sources)Kim-bchold46-86kbcaob58-06-6372Tnauvdfmrpxg (1 source)CONTACT W/AND (SUSP) EXPOS COVID-19; Translations: [CONTACT W/AND (SUSP) EXPOS COVID-19]Onset: 83-98-1753Bxuxuctvrvyb (15 sources)Patient encounter pqsayi28-71-5684Kjveayhbeuvv (1 source)MFM consultOnset: 47-00-3411Yxsivxwfxsqz (1 source)Gestational DiabetesOnset: 94-33-5647Iisbq infection (20 sources)Viral ipzebnq25-77-7586Juuljcwj Past or Other Problems Problem ClassificationProblemDateDocumented DateEpisodic/ChronicAbdominal pain (20 sources)Abdominal pain; Translations: [Pain in pelvis]Onset: 02-01-2019 53-98-9173LvxnsenaEtgzk bronchitis (20 sources)Acute infective bronchitis; Translations: [Acute bronchitis due to other specified organisms]Onset: 957474-42-0775WtmntysoZyibl posthemorrhagic anemia (20 sources)Acute posthemorrhagic anemia; Translations: [Acute posthemorrhagic anemia]Onset: 574411-49-8977RryavitxIlabrjbu reactions (20 sources)Other allergy status, other than to drugs and biological substances; Translations: [Oklqi-mp-uronvfj vesicular eczema of hands and feet]Onset: 56-80-1834LeehzdfzAuhtguesr infection; unspecified site (20 sources)Bacterial infectious disease; Translations: [Other bacterial infections of unspecified site]Onset: 088238-26-8472VsdfqbmwEqigoaeg of urinary tract (20 sources)History of calculus of kidney; Translations: [Personal history of urinary calculi]Onset: 257152-87-1395GgzfqlhuJlkxevb dysrhythmias (20 sources)Palpitations; Translations: [Palpitations]Onset: 08-26-2019 95-06-8310CijzwtunJqzixuicdj associated with dizziness or vertigo (20 sources)Dizziness; Translations: [Dizziness and giddiness]Onset: 02-05-2019 17-04-3550FqvwokazDcbmsnankf and other anemia (20 sources)Anemia; Translations: [Anemia, unspecified]Onset: 66-86-4617Gcesejux Diabetes mellitus without complication (20 sources)Prediabetes; Translations: [Prediabetes]Onset: 95-58-0558Dczvgssb Diseases of mouth; excluding dental (20 sources)Xerostomia; Translations: [Dry mouth, unspecified]Onset: 12-22-2022 EpisodicFluid and electrolyte disorders (20 sources)Cerebral hyponatremia; Translations: [Hypo-osmolality and hyponatremia]Onset: 56-01-3433MstnfgqtVmntptpzlfwzpill hemorrhage (20 sources)Hematochezia; Translations: [Blood-tinged feces]Onset: 06-12-2023 23-61-9737VpuofixqEvdcivdvjkscb symptoms and ill-defined conditions (20 sources)Genitourinary symptoms; Translations: [Unspecified symptoms and signs involving the genitourinary system]Onset: 49-80-0687OvcsyfgrNtaxglky; including migraine (20 sources)Migraine without aura, not refractory ; Translations: [Migraine without aura, not intractable, without status migrainosus]Onset: 09-12-2017 Resolved: 839852-62-0911JzlvijfFhybjxitutmmd and screening for infectious disease (20 sources)Antibody studies abnormal; Translations: [Raised antibody titer] Onset: 858898-97-8731QaboiidwGvgentp and fatigue (20 sources)Fatigue; Translations: [Other fatigue]Onset: EpisodicMycoses (20 sources)Candidiasis of vagina Resolved: 063041-38-1845AfjjsdekRdbyzyplzdk deficiencies (20 sources)Vitamin B deficiency; Translations: [Deficiency of other specified B group vitamins]Onset: 367279-56-6595XbtgqgclPK-tspmskl trauma to perineum and vulva (20 sources)First degree perineal tear during delivery - delivered; Translations: [First degree perineal laceration during delivery]Onset: 216778-92-6989DkmchtaoMtzeg aftercare (20 sources)Long-term current use of anticoagulant; Translations: [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]Onset: 894046-18-1642FyvgmahbQkdyu aftercare (20 sources)Long-term current use of drug therapy; Translations: [correction (current) use of antithrombotics/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]Onset: EpisodicOther circulatory disease (20 sources)History of cerebrovascular accident; Translations: [Personal history of transient ischemic attack (TIA), and cerebral infarction without residual deficits]Onset: 265637-24-7884JgloeaefVwyghbt on above:reported by pt - related to antiphospholipid syndromeOther circulatory disease (20 sources)Elevated blood-pressure reading without diagnosis of hypertension; Translations: [Elevated blood-pressure reading, without diagnosis of hypertension]Onset: 786734-57-8661PmbdzqrmZfidb circulatory disease (20 sources)Elevated blood pressure; Translations: [Elevated blood-pressure reading, without diagnosis of hypertension]Onset: 205222-15-8483Stuziqkp Other complications of ; puerperium affecting management of mother (20 sources) problem; Translations: [Unspecified disorders of ]Onset: 321686-14-3129XqxfirukHscwe complications of ; puerperium affecting management of mother (1 source)Endocrine, nutritional and metabolic disease complicating , childbirth and puerperium; Translations: [Endocrine, nutritional and metabolic diseases complicating childbirth]Onset: 323155-52-2701NspaytxnNtadb complications of ; puerperium affecting management of mother (1 source)Complication of , childbirth and/or the puerperium; Translations: [Other diseases of the blood and blood-forming organs and certain disorders involving the immune mechanism complicating childbirth]Onset: 381127-85-0312IotwmbqcTjegs complications of ; puerperium affecting management of mother (20 sources) hemorrhage; Translations: [Other immediate hemorrhage]Onset: 315337-01-1869XwqahjkiJkjud complications of (1 source)Vomiting of ; Translations: [Vomiting of , unspecified]Onset: 341900-97-9679QepqzdibAqacl complications of (20 sources)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; Translations: [Maternal care for (suspected) chromosomal abnormality in fetus, not applicable or unspecified]Onset: 408673-45-1467NytzhiqsGjjca complications of (4 sources)Other specified related conditions, third trimester; Translations: [OTH SPEC PREG RELATEDCOND 3RD TRI]Onset: 23-04-5002UvjoaoyaMhklm complications of (20 sources)Antiphospholipid syndrome; Translations: [Other diseases of the blood and blood-forming organs and certain disorders involving the immune mechanism complicating , unspecified trimester]Onset: 07-07-2019 24-54-3567XfjocjfmMtfcj complications of (20 sources)Multigravida of advanced maternal age; Translations: [Supervision of elderly multigravida, second trimester]Onset: 457375-46-3229AqrqnwzuNthok complications of (2 sources)Other diseases of the blood and blood-forming organs and certain disorders involving the immune mechanism complicating , unspecified trimester; Translations: [Other diseases of the blood andblood-forming organs and certain disorders involving the immune mechanism complicating , un specified trimester]Onset: 53-35-4812RlqeurltHajmd complications of (1 source)Supervision of elderly multigravida, second trimester; Translations: [Supervision of elderly multigravida, second trimester]Onset: 67-69-0807Yulopkzt Other ear and sense organ disorders (20 sources)Referred otalgia of right ear; Translations: [Otalgia, right ear] Onset: 002766-86-7502DgstmsvaOetvb female genital disorders (20 sources)Noninflammatory disorder of the vagina; Translations: [Other specified noninflammatory disorders ofvagina]Onset: 321972-39-5940Mwnwuinq Other female genital disorders (20 sources)Disorder of female reproductive system; Translations: [Unspecified condition associated with femalegenital organs and menstrual cycle]Onset: 613160-80-0319ChwzndgtQsrkz female genital disorders (1 source)Other specified noninflammatory disorders of vagina; Translations: [OTH SPEC NONINFLAMMATORY D/O VAGINA]Onset: 13-56-2105PtnqjqwqJamri female genital disorders (14 sources)Pelvic and perineal pain; Translations: [Pelvic and perineal pain] Onset: 944784-53-4422VnvrgotqGulux hematologic conditions (20 sources)H/O: anemia - iron deficient; Translations: [Personal history of diseases of the blood and blood-forming organs and certain disorders involving the immune mechanism]Onset: 658040-05-6569WotlefovDrlxe infections; including parasitic (20 sources)Personal history of other infectious and parasitic diseases; Translations: [History of COVID-19]Onset: 739537-70-1630PvfpnvyjTjdpy inflammatory condition of skin (1 source)Itching of skin; Translations: [Pruritus, unspecified]Onset: 165735-34-6745VkwccebxSwbsv inflammatory condition of skin (20 sources)Pruritus, unspecified; Translations: [Unspecified pruritic disorder] Onset: 355468-62-5212MxfydfyqWgkqm injuries and conditions due to external causes (20 sources)Inhalation injury; Translations: [Injury, unspecified, initial encounter]Onset: 110731-56-4938TrvuaryrVurps lower respiratory disease (20 sources)Dyspnea; Translations: [Dyspnea, unspecified]Onset: 06-12-2023 50-23-5837FvxvtdwiQmuzw lower respiratory disease (20 sources)H/O: asthma; Translations: [Personal history of other diseases of the respiratory system]Onset: 733697-59-0235FiqslfxiObeuu lower respiratory disease (20 sources)Snoring; Translations: [Snoring]Onset: 55-40-0219TykmiqarQvhnx nervous system disorders (20 sources)Muscle fasciculation; Translations: [Fasciculation]Onset: 08-19-2021 EpisodicOther nervous system disorders (20 sources)Paresthesia of lower extremity; Translations: [Paresthesia of skin] Onset: 563996-05-2199GowhbhhpUoqrh nervous system disorders (20 sources)Acute postoperative pain; Translations: [Other acute postprocedural pain]Onset: 934089-06-7475BexybckgReauj non-traumatic joint disorders (20 sources)Joint pain; Translations: [Pain in unspecified joint]Onset: 122487-52-3994RdirhyacOasfz nutritional; endocrine; and metabolic disorders (20 sources)H/O: hypothyroidism; Translations: [Personal history of other endocrine, nutritional and metabolic disease]Onset: 492541-23-4682Ernkajuz Other and delivery including normal (20 sources)Normal ; Translations: [Encounter for supervision of normal , unspecified, first trimester]Onset: 668846-53-9807Vxgjsnfm Other skin disorders (20 sources)Eavez-yz-iwrxojk vesicular eczema of hands and feet; Translations: [Dyshidrosis [pompholyx]]Onset: 991169-51-0357LgwcqatyVcceh upper respiratory disease (20 sources)Deviated nasal septum; Translations: [Deviated nasal septum]Onset: 10-39-5195ThucrcpuRjtfp upper respiratory disease (20 sources)Polyp of nasal cavity and/or nasal sinus; Translations: [Nasal polyp, unspecified]Onset: 792567-14-5502GpewhiqeEgppw upper respiratory infections (20 sources)Acute upper respiratory infection Resolved: 680629-33-7688JfldhujyRztxbj media and related conditions (20 sources)Dysfunction of eustachian tube; Translations: [Disorder of right Eustachian tube]Onset: 250530-65-0951TkugdnhmZytrhgt cyst (20 sources)Cyst of ovary; Translations: [Cyst of right ovary]Onset: 02-06-2019 13-09-3571RpiwdxadSfklaqyt codes; unclassified (20 sources)Family history of female genital tract disorder Resolved: 614452-76-4263CrrufohnOniolxph codes; unclassified (20 sources)FH: Anemia Resolved: 947250-51-7713IugnadziKkpgrgns codes; unclassified (20 sources)First trimester ; Translations: [Less than 8 weeks gestation of ]Onset: 869151-52-6965VagcmdxmNdrugyjt codes; unclassified (20 sources)Gestation period, 32 weeks; Translations: [32 weeks gestation of ]Onset: 398289-08-9440WsxtnahdTtndmxtc codes; unclassified (1 source)Gestation period, 33 weeks; Translations: [33 weeks gestation of ]Onset: 458196-46-8395HmgkxzvmZssccqrl codes; unclassified (1 source)Gestation period, 34 weeks; Translations: [34 weeks gestation of ]Onset: 232134-99-3886KxgaqtiaUrjmkxkv codes; unclassified (1 source)Gestation period, 35 weeks; Translations: [35 weeks gestation of ]Onset: 968837-64-8501BuixtiyvIoxlzqri codes; unclassified (1 source)Gestation period, 36 weeks; Translations: [36 weeks gestation of ]Onset: 441711-82-8556GyjwochcDqxfdzxo codes; unclassified (1 source)Gestation period, 37 weeks; Translations: [37 weeks gestation of ]Onset: 651420-40-6393XzrefbihTvzijbau codes; unclassified (1 source)Gestation period, 38 weeks; Translations: [38 weeks gestation of ]Onset: 974705-81-5546UqvjhmqnKmsnerpx codes; unclassified (1 source)Gestation period, 39 weeks; Translations: [39 weeks gestation of ]Onset: 752687-75-2177XkkyyhthCaavrpmn codes; unclassified (20 sources)Other general symptoms and signs; Translations: [Other general symptoms]Onset: 810639-11-3703NarcrlidHazzbpkk codes; unclassified (1 source)Unspecified blood type, Rh negative; Translations: [UNSPECIFIED BLOOD TYPE RH NEGATIVE]Onset: 44-47-0423GmcicobmUfaltaei codes; unclassified (1 source)28 weeks gestation of ; Translations: [28 WEEKS GESTATION OF ]Onset: 76-55-6191IijnmanfQganiong codes; unclassified (20 sources)Intolerant of cold; Translations: [Other general symptoms and signs] Onset: 907046-12-8572MbwjqqxlVmzfcias codes; unclassified (20 sources)Non-smoker; Translations: [Other specified health status]Onset: 535018-79-3950CvsvslyuEeybqiwc codes; unclassified (20 sources)Swelling of salivary gland; Translations: [Localized edema]Onset: 768365-42-5953ZrdufgsdNeaigwlzkzf; intervertebral disc disorders; other back problems (20 sources)Neck pain; Translations: [Cervicalgia]Onset: EpisodicSpontaneous (20 sources)Miscarriage Resolved: 656278-47-9113LbzklqlsEykaquq (20 sources)Syncope and collapse; Translations: [Syncope and collapse]Onset: 211205-65-6144PgatfmipVpokbizrnfqg (20 sources)PregnancyOnset: 02-20-2007 Resolved: 232032-32-3634Qgebjxqtrqvy (20 sources)Suspected disease caused by 1361-rOtU00-62mDyN43-84-0875Huakbizkoswr (1 source)Exposure to 2019 novel coronavirus; Translations: [Contact with and (suspected) exposure to COVID19]Urinary tract infections (20 sources)Infective urethritis; Translations: [Other urethritis]Onset: 49-55-6743Ktuihrju Results Test NameValueInterpretationReference RangeFacilityUS OB BPP W NON-STRESS on 98-84[place] [address] Ultrasound Report Signed Patient: SANNA RENDON MR#: [id number] : 1985 Acct:[id number] Age/Sex: 39 / F ADM Date: 03/05/25 Loc: US Attending Dr: Wilton Herrmann D.O. Ordering Physician: Wilton Herrmann D.O. Date of Service: 03/05/25 Procedure(s): US OB BPP w non-stress Accession Number(s): [id number] cc: Wilton Herrmann D.O.; Physician,Non-Staff M.DLazara [facility] [place] [id number] Patient Name: SANNA RENDON MRN: [facility]:[id number] date: 1985 Sex: F Assigned Patient Location: [facility] Current Patient Location: Accession/Order Number: [id number] Exam Date: 03/05/2025 19:15 Report Date: 03/06/2025 [...] Pisano M.D. 03/06/2025 8:10 AM Dictation Location: [place] [address] Electronically authenticated by: [id number] Y Date: 03/06/2025 08:10 Dictated By: Pamela Pisano M.D. Signed By: 03/06/2513 DD/ 9 TD/TT: Pipeline Engineer:ELVERadiology, Radiologist, - 03/06/2025 [place] [address] Ultrasound Report Signed Patient: SANNA RENDON MR#: [id number] : 1985 Acct:[id number] Age/Sex: 39 / F ADM Date: 03/05/25 Loc: US Attending Dr: Wilton Herrmann D.O. Ordering Physician: Wilton Herrmann D.O. Date of Service: 03/05/25 Procedure(s): US OB BPP w non-stress Accession Number(s): [id number] cc: Wilton Herrmann D.O.; Physician,Non-Staff [place] [address] Patient Name: SANNA RENDON MRN: [facility]:[id number] date: 1985 Sex: F Assigned Patient Location: [facility] Current Patient Location: Accession/Order Number: [id number] Exam Date: 03/05/2025 19:15 Report Date: 03/06/2025 [...] Pisano M.D. 03/06/2025 8:10 AM Dictation Location: [place] [address] Electronically authenticated by: [id number] Y Date: 03/06/2025 08:10 Dictated By: Pamela Pisano M.D. Signed By: 03/06/25812 DD/ 9 TD/TT: Pipeline Engineer: SHILOH HealthcareRadiology Study observation (narrative)[facility] HealthcareUS OB BPP W NON-STRESSOrdered By: Radiologist Radiology on 55-82-8398EXOHCedar County Memorial Hospital Work Phone: [phone]([place])D3 [facility] 789199-ldsohapzikzhoe D3 [Mass/Vol]54.6 ng/sAPhgbqk02.0-80.0[facility] on above: Order Comment: Specimen Type: BLOOD SPECIMENOrdering Facility: [facility] Address:[address] [place], [place] [address]Performed By: #### 1989-3 ####[facility] LABCLIA [id number] [address] W Auto Differential panel (Bld)on 03-02-2025 Basophils (Bld) [#/Vol]0.03 10*3/uLNormal<0.11CVan Wert County HospitalComment on above:Order Comment: Specimen Type: BLOOD SPECIMENOrdering Facility: [facility] Address:[address] [place] [address] Performed By: #### 73967-2 ####[facility] LABCLIA [id number] [place], [place] [address]Mycvuiugi/100 WBC (Bld)0.3 % NormalSouthwest General Health Center on above:Order Comment: Specimen Type: BLOOD SPECIMENOrdering Facility: [facility] Address:[address] [place], [place] [address]Performed By: #### 15685-1 ####[facility] LABCLIA [id number] [place] [address] Differential cell count method Nom (Bld)AutoNormalCVan Wert County Hospital Comment on above:Order Comment: Specimen Type: BLOOD SPECIMENOrdering Facility: [facility] Address:[address] [place] [address] Performed By: #### 50162-0 ####[facility] LABCLIA [id number] [place], [place] [address]Gilzdbxwazl (Bld) [#/Vol]0.06 10*3/uLNormal<0.46[facility] on above:Order Comment: Specimen Type: BLOOD SPECIMENOrdering Facility: [facility] Address:[address] [place], [place] [address]Performed By: #### 15883-3 ####[facility] LABCLIA [id number] [place], [place] [address]Sflfickxwgk/100 WBC (Bld)0.7 %NormalSouthwest General Health Center on above:Order Comment: Specimen Type: BLOOD SPECIMENOrdering Facility: [facility] Address:[address] [place], [place] [address]Performed By: #### 48536-0 ####[facility] LABCLIA [id number] [place], [place] [address]Roqodhxdanq distribution width (RBC) [Ratio]13.3 %Aslurj09.5-15.0[facility] on above: Order Comment: Specimen Type: BLOOD SPECIMENOrdering Facility: [facility] Address:[address] [place], [place] [address]Performed By: #### 51573- 8 ####[facility] LABIA [id number] [place], [place] [address]Ynjeazmlpy (Bld) [Volume fraction]33.0 %Low36.0-46.0 [facility] on above:Order Comment: Specimen Type: BLOOD SPECIMENOrdering Facility: [facility] Address:[address] [place], [place] [address]Performed By: #### 26782-2 ####[facility] LABIA [id number] [place], [place] [address]Nektwtyyuo (Bld) [Mass/Vol]11.6 g/qLPgkgbs01.5-15.5COhioHealth Grant Medical Center on above: Order Comment: Specimen Type: BLOOD SPECIMENOrdering Facility: [facility] Address:[address] [place], [place] [address]Performed By: #### 86533- 8 ####[facility] LABCLIA [id number] [place], [place] [address]Jgodnqfi granulocytes (Bld) [#/Vol]0.04 10*3/uLNormal <0.10[facility] on above:Order Comment: Specimen Type: BLOOD SPECIMENOrdering Facility: [facility] Address:[address] [place], [place] [address]Performed By: #### 58556-1 ####[facility] LABCLIA [id number] [place], [place] [address]Pguslvdu granulocytes/100 WBC (Bld)0.5 %NormalSouthwest General Health Center on above: Order Comment: Specimen Type: BLOOD SPECIMENOrdering Facility: [facility] Address:[address] [place], [place] [address]Performed By: #### 43719- 8 ####[facility] LABCLIA [id number] [place], [place] [address]Nruypyrjxfn (Bld) [#/Vol]2.31 10*3/uLNormal1.00-4.00 [facility] on above:Order Comment: Specimen Type: BLOOD SPECIMENOrdering Facility: [facility] Address:[address] [place], [place] [address]Performed By: #### 62032-3 ####[facility] LABCLIA [id number] [place], [place] [address]Fjuxuvsgnfk/100 WBC (Bld)26.7 %NormalSouthwest General Health Center on above:Order Comment: Specimen Type: BLOOD SPECIMENOrdering Facility: [facility] Address:[address] [place], [place] [address]Performed By: #### 92424-0 ####[facility] LABCLIA [id number] [place], [place] [address]FPE (RBC) [Entitic mass]31.3 jyYdmiyh56.0-34.0[facility] on above:Order Comment: Specimen Type: BLOOD SPECIMENOrdering Facility: [facility] Address:[address] [place], [place] [address]Performed By: #### 00268-4 ####[facility] LABCLIA [id number] [place], [place] [address]LBRM (RBC) [Mass/Vol]35.2 g/bTSdtgdu76.5-36.0[facility] on above: Order Comment: Specimen Type: BLOOD SPECIMENOrdering Facility: [facility] Address:[address] [place], [place] [address]Performed By: #### 76542- 8 ####[facility] LABCLIA [id number] [place], [place] [address]TIT (RBC) [Entitic vol]88.9 zXRmajhv17.0-100.0[facility] on above:Order Comment: Specimen Type: BLOOD SPECIMENOrdering Facility: [facility] Address:[address] [place], [place] [address]Performed By: #### 22729-4 ####[facility] LABIA [id number] [place], [place] [address]Koiiezsvp (Bld) [#/Vol]0.63 10*3/uLNormal<0.87[facility] on above:Order Comment: Specimen Type: BLOOD SPECIMENOrdering Facility: [facility] Address:[address] [place], [place] [address]Performed By: #### 02401- 8 ####[facility] LABCLIA [id number] [place], [place] [address]Nqiiwaras/100 WBC (Bld)7.3 %NormalSouthwest General Health Center on above:Order Comment: Specimen Type: BLOOD SPECIMENOrdering Facility: [facility] Address:[address] [place], [place] [address]Performed By: #### 95534-4 ####[facility] LABCLIA [id number] [place], [place] [address]Hawpnlcohco (Bld) [#/Vol]5.57 10*3/uLNormal1.45-7.50[facility] on above:Order Comment: Specimen Type: BLOOD SPECIMENOrdering Facility: [facility] Address:[address] [place], [place] [address]Performed By: #### 33756-1 ####[facility] LABCLIA [id number] [place], [place] [address]Wilyjgoganv/100 WBC (Bld)64.5 %NormalSouthwest General Health Center on above:Order Comment: Specimen Type: BLOOD SPECIMENOrdering Facility: [facility] Address:[address] [place], [place] [address]Performed By: #### 94674-0 ####[facility] LABCLIA [id number] [place], [place] [address]Vfnzyiltv RBC (Bld) [#/Vol] 10*3/uLNormal<0.01[facility] on above:Order Comment: Specimen Type: BLOOD SPECIMENOrdering Facility: [facility] Address:[address] [place], [place] [address]Performed By: #### 03751-5 ####[facility] LABCLIA [id number] [place], [place] [address]Ypcwovqwt RBC/100 WBC (Bld) [Ratio]0.0 /100 WBCNormal [facility] on above:Order Comment: Specimen Type: BLOOD SPECIMENOrdering Facility: [facility] Address:[address] [place], [place] [address]Performed By: #### 97373-3 ####[facility] LABIA [id number] [place], [place] [address]Ajolovig mean volume (Bld) [Entitic vol]9.4 fLNormal9.0-12.7COhioHealth Grant Medical Center on above:Order Comment: Specimen Type: BLOOD SPECIMENOrdering Facility: [facility] Address:[address] [place] [address] Performed By: #### 67547-8 ####[facility] LABCLIA [id number] [place], [place] [address]Vxgjbydjc (Bld) [#/Vol]257 10*3/tPZwtukr274-225QtyvygaemSouthwest General Health Center on above:Order Comment: Specimen Type: BLOOD SPECIMENOrdering Facility: [facility] Address:[address] [place], [place] [address]Performed By: #### 36028-9 ####[facility] LABIA [id number] [place], [place] [address]RTA (Bld) [#/Vol]3.71 10*6/uLLow3.90-5.20[facility] on above:Order Comment: Specimen Type: BLOOD SPECIMENOrdering Facility: [facility] Address:[address] [place], [place] [address]Performed By: #### 50622-7 ####[facility]ITALIA [id number] [place], [place] [address]PFB (Bld) [#/Vol]8.64 10*3/uL Normal3.70-11.00[facility] on above:Order Comment: Specimen Type: BLOOD SPECIMENOrdering Facility: [facility] Address:[address] [place], [place] [address]Performed By: #### 01977-8 ####[facility] LABIA [id number] [place], [place] [address]GITIOQmg 97-17-6683GAVZOCNvqjb (SP) Office ([place]) SANNA RENDON ([id number]) 1985 F Date Time Provider Department 03/02/25 11:30 AM KATHERINE NEGRETE During your visit today, we recorded the following information about you: Temperature Pulse Respiration Blood pressure 97.2 degrees 73/minute 16/minute 133/79 Weight 97.2 kg Katherine Negrete APRN.CNP 03/02/2025 8:18 PM Signed NAME: Sanna Rendon CLINIC NO.: [id number] DATE OF SERVICE: March 02, 2025 ([place]) [...] later in 2018. These were found in [place], [place]. I don't have access to these [...] a target-like rash shortly before presenting to [facility] with headaches [...] SUMMARIZED PLAN OF CARE: Continue Lovenox Saw SHIPWRIGHT and patient increased Lovenox to 40 mg [...] and postpra (more content not included)... NormalOhioHealth Marion General Hospitalprehensive metabolic 2000 panelon 03-02-2025 Albumin [Mass/Vol]4.1 g/dLNormal3.9-4.9COhioHealth Grant Medical Center on above:Order Comment: Specimen Type: BLOOD SPECIMENOrdering Facility: [facility] Address:[address] [place], [place] [address]Performed By: #### 62531-0 ####[facility] LABCLIA [id number] [place], [place] [address]JUM [Catalytic activity/Vol]64 U/BCyqyzx69-363 [facility] on above:Order Comment: Specimen Type: BLOOD SPECIMENOrdering Facility: [facility] Address:[address] [place], [place] [address]Performed By: #### 03170-7 ####[facility] LABCLIA [id number] [place], [place] [address]GSB [Catalytic activity/Vol]10 U/LNormal7-38[facility] on above:Order Comment: Specimen Type: BLOOD SPECIMENOrdering Facility: [facility] Address:[address] [place], [place] [address]Performed By: #### 56846- 8 ####[facility] LABCLIA [id number] [place], [place] [address]Wwgek gap [Moles/Vol]13 mmol/LNormal8-15[facility] on above:Order Comment: Specimen Type: BLOOD SPECIMENOrdering Facility: [facility] Address:[address] [place], [place] [address]Performed By: #### 02394-6 ####[facility] LABCLIA [id number] [place], [place] [address]AKB [Catalytic activity/Vol]12 U/DGxj39-76CudjhbavhSouthwest General Health Center on above:Order Comment: Specimen Type: BLOOD SPECIMENOrdering Facility: [facility] Address:[address] [place], [place] [address]Performed By: #### 63728-5 ####[facility] LABCLIA [id number] [place] [address] Bilirubin [Mass/Vol]0.2 mg/dLNormal0.2-1.3COhioHealth Grant Medical Center on above:Order Comment: Specimen Type: BLOOD SPECIMENOrdering Facility: [facility] Address:[address] [place], [place] [address]Performed By: #### 41151-0 ####[facility] LABCLIA [id number] [place], [place] [address]Bismgon [Mass/Vol]10.3 mg/dLHigh8.5-10.2COhioHealth Grant Medical Center on above:Order Comment: Specimen Type: BLOOD SPECIMENOrdering Facility: [facility] Address:[address] [place], [place] [address]Performed By: #### 70555-7 ####[facility] LABCLIA [id number] [place], [place] [address]Rffkiqvh [Moles/Vol]97 mmol/QZol02-942NgcujggxhSouthwest General Health Center on above:Order Comment: Specimen Type: BLOOD SPECIMENOrdering Facility: [facility] Address:[address] [place], [place] [address]Performed By: #### 31594- 8 ####[facility] LABCLIA [id number] [facility] [place] [place], [place] [address]JZ3 [Moles/Vol]21 mmol/XZpa95-45LrtadsrdjSouthwest General Health Center on above:Order Comment: Specimen Type: BLOOD SPECIMENOrdering Facility: [facility] Address:[address] [place], [place] [address]Performed By: #### 13741-3 ####[facility] LABCLIA [id number] [place], [place] [address]Ovdqveicvr [Mass/Vol]0.54 mg/dL Low0.58-0.96[facility] on above:Order Comment: Specimen Type: BLOOD SPECIMENOrdering Facility: [facility] Address:[address] [place], [place] [address]Performed By: #### 97362-4 ####[facility] LABCLIA [id number] [place] [address] eGFRcr SerPlBld CKD-EPI 9244987 mL/min/1.73m???Normal>=60[facility] on above:Order Comment: Specimen Type: BLOOD SPECIMENOrdering Facility: [facility] Address:[address] [place], [place] [address]Result Comment: Estimated Glomerular Filtration Rate (eGFR) is [...] accurately reflect actual GFR. Performed By: #### 47802-7 ####[facility] LABIA [id number] [place], [place] [address]Msmbeyt [Mass/Vol]71 mg/dLLow 74-99[facility] on above:Order Comment: Specimen Type: BLOOD SPECIMENOrdering Facility: [facility] Address:[address] [place], [place] [address]Result Comment: The [place] [employer] Association (ADA) provides guidance for cutoff [...] Standards of Medical Care in Diabetes 2016, [place] [employer]. Diabetes Care. 2016.39(Suppl 1).Performed By: #### 15690-7 ####[facility] LABCLIA [id number] [place], [place] [address]Ptiqlbodt [Moles/Vol]3.9 mmol/LNormal3.7-5.1COhioHealth Grant Medical Center on above:Order Comment: Specimen Type: BLOOD SPECIMENOrdering Facility: [facility] Address:[address] [place], [place] [address]Performed By: #### 73981-1 ####[facility] LABCLIA [id number] [place], [place] [address]Nsudrfb [Mass/Vol]7.2 g/dLNormal6.3-8.0[facility] on above:Order Comment: Specimen Type: BLOOD SPECIMENOrdering Facility: [facility] Address:[address] [place], [place] [address]Performed By: #### 34819- 8 ####[facility] LABCLIA [id number] [place], [place] [address]Aemici [Moles/Vol]131 mmol/LBmn066-808WhewlbhisSouthwest General Health Center on above:Order Comment: Specimen Type: BLOOD SPECIMENOrdering Facility: [facility] Address:[address] [place], [place] [address]Performed By: #### 34830-5 ####[facility] LABCLIA [id number] [place], [place] [address]Yyod nitrogen [Mass/Vol]9 mg/dL Normal7-21[facility] on above:Order Comment: Specimen Type: BLOOD SPECIMENOrdering Facility: [facility] Address:[address] [place], [place] [address] [address]Performed By: #### 77550-2 ####[facility] LABCLIA [id number] [place] [address] US OB BPP W NON-STRESSon 25-54-[place], [place] [address] Ultrasound Report Signed Patient: SANNA RENDON MR#: [id number] : 1985 Acct:[id number] Age/Sex: 39 / F ADM Date: 02/26/25 Loc: US Attending Dr: Wilton Herrmann D.O. Ordering Physician: Wilton Herrmann D.O. Date of Service: 02/26/25 Procedure(s): US OB BPP w non-stress Accession Number(s): [id number] cc: Wilton Herrmann D.O.; Physician,Non-Staff M.DLazara The [place] [address] Patient Name: SANNA RENDON MRN: [id number] date: 1985 Sex: F Assigned Patient Location: US Current Patient Location: Accession/Order Number: [id number] Exam Date: 02/26/2025 19:42 Report Date: 02/27/2025 [...] Pisano M.D. 02/27/2025 10:53 AM Dictation Location: [place] [address] Electronically authenticated by: [id number] Y Date: 02/27/2025 10:53 Dictated By: Pamela Pisano M.D. Signed By: 02/27/25 1056 DD/ 1053 TD/TT: Pipeline Engineer:MANUELHRadiology, Radiologist, - 02/27/2025 [place] [address] Ultrasound Report Signed Patient: SANNA RENDON MR#: [id number] : 1985 Acct:[id number] Age/Sex: 39 / F ADM Date: 02/26/25 Loc: US Attending Dr: Wilton Herrmann D.O. Ordering Physician: Wilton Herrmann D.O. Date of Service: 02/26/25 Procedure(s): US OB BPP w non-stress Accession Number(s): [id number] cc: Wilton Herrmann D.O.; Physician,Non-Staff Tamia The [address] [id number] Patient Name: SANNA RENDON MRN: [id number] date: 1985 Sex: F Assigned Patient Location: Current Patient Location: Accession/Order Number: [id number] Exam Date: 02/26/2025 19:42 Report Date: 02/27/2025 [...] Pisano M.D. 02/27/2025 10:53 AM Dictation Location: [place] [address] Electronically authenticated by: [id number] Y Date: 02/27/2025 10:53 Dictated By: Pamela Pisano M.D. Signed By: 02/27/25 1056 DD/ 1053 TD/TT: Pipeline Engineer: [facility] HealthcareRadiology Study observation (narrative)[facility] HealthcareUS OB BPP W NON-STRESSOrdered By: Radiologist Radiology on 62-64-8225AGQMCedar County Memorial Hospital Work Phone: Urinalysis macro (dipstick) panel [...] - 1.03[facility] Urobilinogen, UA0.20.2 - 12 mg/dLNODeaconess Incarnate Word Health SystemNODeaconess Incarnate Word Health SystemNo Panel InformationOrdered By: Radiologist Radiology on 30-65-5347ZSTACedar County Memorial Hospital Work Phone: No Panel Informationon 28-28-6793Bpkguqazg Study observation (narrative)SHILOH BrowningUS OB BPP W NON-STRESSon 02-20-2025 [place] [address] Ultrasound Report Signed Patient: SANNA RENDON MR#: [id number] : 1985 Acct:[id number] Age/Sex: 39 / F ADM Date: 02/19/25 Loc: US Attending Dr: Wilton Herrmann D.O. Ordering Physician: Wilton Herrmann D.O. Date of Service: 02/19/25 Procedure(s): US OB BPP w non-stress Accession Number(s): [id number] cc: Wilton Herrmann D.O.; Physician,Non-Staff M.DLazara The [place] [id number] Patient Name: SANNA RENDON MRN: [id number]:[id number] date: 1985 Sex: F Assigned Patient Location: LAB Current Patient Location: Accession/Order Number: [id number] Exam Date: 02/19/2025 19:47 Report Date: 02/20/2025 [...] Pisano M.D. 02/20/2025 8:37 AM Dictation Location: [place] [address] Electronically authenticated by: [id number] Y Date: 02/20/2025 08:37 Dictated By: Pamela Pisano M.D. Signed By: 02/20/25 0840 DD/ 0837 TD/TT: Pipeline Engineer:TBHRadiology, Radiologist, - 02/20/2025 [place] [address] Ultrasound Report Signed Patient: SANNA RENDON MR#: [id number] : 1985 Acct:[id number] Age/Sex: 39 / F ADM Date: 02/19/25 Loc: US Attending Dr: Wilton Herrmann D.O. Ordering Physician: Wilton Herrmann D.O. Date of Service: 02/19/25 Procedure(s): US OB BPP w non-stress Accession Number(s): [id number] cc: Wilton Herrmann D.O.; Physician,Non-Staff Tamia The [place] [id number] Patient Name: SANNA RENDON MRN: [id number] date: 1985 Sex: F Assigned Patient Location: LAB Current Patient Location: Accession/Order Number: [id number] Exam Date: 02/19/2025 19:47 Report Date: 02/20/2025 [...] Pisano M.D. 02/20/2025 8:37 AM Dictation Location: [place] [address] Electronically authenticated by: [id number] Y Date: 02/20/2025 08:37 Dictated By: Pamela Pisano M.D. Signed By: 02/20/25 0840 DD/ 0837 TD/TT: Pipeline Engineer: SHILOH Ibanez OB [id number] [address] Ultrasound Report Signed Patient: SANNA RENDON MR#: [id number] : 1985 Acct:[id number] Age/Sex: 39 / F ADM Date: 02/19/25 Loc: US Attending Dr: Wilton Herrmann D.O. Ordering Physician: Wilton Herrmann D.O. Date of Service: 02/19/25 Procedure(s): US OB growth Accession Number(s): [id number] cc: Wilton Herrmann D.O.; Physician,Non-Staff M.[facility] [place] [id number] Patient Name: SANNA RENDON MRN: [id number] date: 1985 Sex: F Assigned Patient Location: LAB Current Patient Location: Accession/Order Number: [id number] Exam Date: 02/19/2025 19:47 Report Date: 02/20/2025 [...] IMPRESSION: NORMAL BIOPHYSICAL PROFILE Impression dictated by: Paemla Pisano M.D. 02/20/2025 8:37 AM Dictation Location: [place] [address] Electronically authenticated by: [id number] Y Date: 02/20/2025 08:37 Dictated By: Pamela Pisano M.D. Signed By: 02/20/25839 DD/ 6 TD/TT: Pipeline Engineer:TBHRadiology, Radiologist, - 02/20/2025 [place] [address] Ultrasound Report Signed Patient: SANNA RENDON MR#: [id number] : 1985 Acct:[id number] Age/Sex: 39 / F ADM Date: 02/19/25 Loc: US Attending Dr: Wilton Herrmann D.O. Ordering Physician: Wilton Herrmann D.O. Date of Service: 02/19/25 Procedure(s): US OB growth Accession Number(s): [id number] cc: Wilton Herrmann D.O.; Physician,Non-Staff [place] [id number] Patient Name: SANNA RENDON MRN: [facility]:[id number] date: 1985 Sex: F Assigned Patient Location: LAB Current Patient Location: Accession/Order Number: [id number] Exam Date: 02/19/2025 19:47 Report Date: 02/20/2025 [...] Pisano M.D. 02/20/2025 8:37 AM Dictation Location: [place] [address] Electronically authenticated by: [id number] Y Date: 02/20/2025 08:37 Dictated By: Pamela Pisano M.D. Signed By: 02/20/25 0840 DD/ TD/TT: Pipeline Engineer: SHILOH Colon CBC WITH AUTO DIFFon 68-66-0813IQMQICZJH ABSOLUTE AUTO0.0NOMS HealthcareBasophils/100 WBC (Bld)0.2 %0.2 - 2.0 %SHILOH HealthcareEosinophils/100 WBC (Bld)0.3 %Low0.9 - 7.0 %NOMS HealthcareErythrocyte distribution width (RBC) [Ratio]13.1 %11.0 - 15.0 %NOMS HealthcareHematocrit (Bld) [Volume fraction]34.6 %Low36.0 - 48.0 %NOM HealthcareHemoglobin (Bld) [Mass/Vol]12.1 g/dL12.0 - 16.0 g/dLNOAL HealthcareIMMATURE GRANULOCYTES ABS AUTO0.06HighNOAL HealthcareImmature granulocytes/100 WBC (Bld)0.6 %High0.0 - 0.5 %NOMS HealthcareInterpretation and review of laboratory resultsAbnormalNOAL HealthcareLYMPHOCYTES ABSOLUTE AUTO2.3 NOM HealthcareLymphocytes/100 WBC (Bld)24.3 %20.5 - 60.0 %[facility] HospitalH (RBC) [Entitic mass]31.7 pg26.7 - 34.0 pgNODeaconess Incarnate Word Health SystemMCHC (RBC) [Mass/Vol] 35.0 g/dL29.9 - 35.2 g/dLCedar County Memorial HospitalMCV (RBC) [Entitic vol]90.6 fL81.0 - 99.0 fLNOAL HealthcareMONOCYTES ABSOLUTE AUTO0.5NOMS HealthcareMonocytes/100 WBC (Bld)5.6 %1.7 - 12.0 %NOM HealthcareNEUTROPHILS ABSOLUTE AUTO6.6HighNOMS HealthcareNeutrophils/100 WBC (Bld)69.0 %43.0 - 75.0 %[facility] HealthcarePlatelet mean volume (Bld) [Entitic vol]9.7 fL9.5 - 13.5 fLNODeaconess Incarnate Word Health SystemTBH EO #0.0NOMS [facility] Medical CenterTB LIG822ZHBM [facility] CenterTB RBC3.82LowNOMS [facility] Medical CenterTB WBC9.6NOAL HealthcareCLINISYNCNOMS HealthcareUrinalysis macro (dipstick) panel (U)on 23-43-8230Zrutgurdd, UANegativeNegative - 4(70) +++ mg/dLNOMS HealthcareBlood, UANegativeNegative - 50 Max/mcLNOMS HealthcareClarity, UAClearNOMS Healthcare Color, UAYellowNOMS HealthcareGlucose, UANegativeNegative - 2000(110) ++++ mg/dL NOMS HealthcareInterpretation and review of laboratory resultsAbnormalNOAL HealthcareKetones, UANegativeNegative - 160(16) ++++ mg/dLNOAL Healthcare Leukocytes, UATraceNegative - 500+++ John/mcLNOAL HealthcareNitrite, UANegative Negative - PositiveNOMS HealthcarepH, UA6.55 - 9NOMS HealthcareProtein, UA NegativeNegative - 2000(20) ++++ mg/dLNOMS HealthcareSpec Grav, UA1.0051 - 1.03 NOMS HealthcareUrobilinogen, UA2.00.2 - 12 mg/dLNOMS HealthcareNOMS Healthcare CNPNon 75-56-5218PHJVYdacshakx ([place]) SANNA RENDON ([id number]) 1985 F Date Time Provider Department 01/29/25 [...] Date Reviewed: 12/24/2024 Reviewed by: Katherine Negrete APRN.ART HISTORY INSTRUCTOR - Fully Assessed Reason for Visit: Fatigue [...] 05/28/2024 Encounter Status:Closed by RACHAEL JOHNSON on 01/30/25[facility] CenterPNon [id number] ([place]) SANNA RENDON ([id number]) 1985 F Date Time Provider Department 01/26/25 [...] mg BID. (80 mg daily dose) Rachael Johnsno RN Allergies As of Date: 01/26/2025 Noted [...] Date Reviewed: 12/24/2024 Reviewed by: Penelope, Katherine, OLERICULTURE PROFESSOR.ART HISTORY INSTRUCTOR - Fully Assessed Prescriptions as of 01/26/2025 [...] 05/28/2024 Encounter Status:Closed by RACHAEL JOHNSON on 01/26/25NoalCVan Wert County HospitalUrinalysis macro (dipstick) panel (U)on 69-78-3353Oaucxcvtk, UANegative Negative - 4(70) +++ mg/dLNOMS HealthcareBlood, UANegativeNegative - 50 Max/mcL NOMS HealthcareClarity, UAClearNOAL HealthcareColor, UAYellowNOAL Healthcare Glucose, UANegativeNegative - 2000(110) ++++ mg/dLNOMS HealthcareInterpretation and review of laboratory resultsNormalNOAL HealthcareKetones, UANegativeNegative - 160(16) ++++ mg/dLNOMS HealthcareLeukocytes, UANegativeNegative - 500+++ John/mcLNOMS HealthcareNitrite, UANegativeNegative - PositiveNOMS HealthcarepH, UA65 - 9NOMS HealthcareProtein, UANegativeNegative - 2000(20) ++++ mg/dLNOMS HealthcareSpec Grav, UA1.011 - 1.03NOMS HealthcareUrobilinogen, UA0.20.2 - 12 mg/dLNOMS HealthcareNOMS HealthcareTSHon 26-82-3369NDE Qn1.85 m[IU]/LNormal 0.34-5.60[facility] Hospitaler Grace Medical CenterComment on above:Performed By: #### [id number] #### [facility] [address] [place], [place] [address]Vupfaaqixs macro (dipstick) panel (U)on 43-23-3683Lxrndqkvu, UA NegativeNegative - 4(70) +++ mg/dLNOMS HealthcareBlood, [...] HealthcareNOMS HealthcareCBC W Auto Differential panel (Bld)on 78-59-8095Wggbvyhof (Bld) [#/Vol]10*3/uLNormal<0.11CVan Wert County HospitalComment on above:Order Comment: Specimen Type: BLOOD SPECIMENOrdering Facility: [facility] Address:[address] [place], [place] [address]Jicvwttfq By: #### 65484-5 ####[facility] LABCLIA [id number] [place], [place] [address]Prortwrmq/100 WBC (Bld)0.2 % NormalSouthwest General Health Center on above:Order Comment: Specimen Type: BLOOD SPECIMENOrdering Facility: [facility] Address:[address] [place], [place] [address]Performed By: #### 44020-5 ####[facility] LABCLIA [id number] [place] [address] Differential cell count method Nom (Bld)AutoNormalClevelNovant Health/NHRMC Comment on above:Order Comment: Specimen Type: BLOOD SPECIMENOrdering Facility: [facility] Address:[address] [place] [address] Performed By: #### 17705-0 ####[facility] LABCLIA [id number] [place], [place] [address]Fqzpmgkujup (Bld) [#/Vol]0.03 10*3/uLNormal<0.46[facility] on above:Order Comment: Specimen Type: BLOOD SPECIMENOrdering Facility: [facility] Address:[address] [place], [place] [address]Performed By: #### 93798-5 ####[facility] LABCLIA [id number] [place], [place] [address]Mjdvzwjzhjz/100 WBC (Bld)0.4 %NormalSouthwest General Health Center on above:Order Comment: Specimen Type: BLOOD SPECIMENOrdering Facility: [facility] Address:[address] [place], [place] [address]Performed By: #### 80866-7 ####[facility] LABIA [id number] [place], [place] [address]Uxuudxcyicg distribution width (RBC) [Ratio]13.5 %Dgyrmh93.5-15.0[facility] on above: Order Comment: Specimen Type: BLOOD SPECIMENOrdering Facility: [facility] Address:[address] [place], [place] [address]Performed By: #### 10365- 8 ####[facility] LABCLIA [id number] [place], [place] [address]Wwjlusneae (Bld) [Volume fraction]34.6 %Low36.0-46.0 [facility] on above:Order Comment: Specimen Type: BLOOD SPECIMENOrdering Facility: [facility] Address:[address] [place], [place] [address]Performed By: #### 73338-1 ####[facility] LABCLIA [id number] [place], [place] [address]Bzycnknuis (Bld) [Mass/Vol]12.0 g/nXNckrvr47.5-15.5COhioHealth Grant Medical Center on above: Order Comment: Specimen Type: BLOOD SPECIMENOrdering Facility: [facility] Address:[address] [place], [place] [address]Performed By: #### 80403- 8 ####[facility] LABCLIA [id number] [place], [place] [address]Uhzlpbeu granulocytes (Bld) [#/Vol]0.04 10*3/uLNormal <0.10[facility] on above:Order Comment: Specimen Type: BLOOD SPECIMENOrdering Facility: [facility] Address:[address] [place], [place] [address]Performed By: #### 07087-2 ####[facility] LABCLIA [id number] [place], [place] [address]Vfvrxjge granulocytes/100 WBC (Bld)0.5 %NormalSouthwest General Health Center on above: Order Comment: Specimen Type: BLOOD SPECIMENOrdering Facility: [facility] Address:[address] [place], [place] [address]Performed By: #### 32187- 8 ####[facility] LABCLIA [id number] [place], [place] [address]Attrvghdhpf (Bld) [#/Vol]2.45 10*3/uLNormal1.00-4.00 [facility] on above:Order Comment: Specimen Type: BLOOD SPECIMENOrdering Facility: [facility] Address:[address] [place], [place] [address]Performed By: #### 04506-9 ####[facility] LABCLIA [id number] [place], [place] [address]Bbxaqglhtui/100 WBC (Bld)28.7 %NormalSouthwest General Health Center on above:Order Comment: Specimen Type: BLOOD SPECIMENOrdering Facility: [facility] Address:[address] [place], [place] [address]Performed By: #### 79828-3 ####[facility] LABCLIA [id number] [place], [place] [address]BZP (RBC) [Entitic mass]31.6 qgMxdmgx88.0-34.0[facility] on above:Order Comment: Specimen Type: BLOOD SPECIMENOrdering Facility: [facility] Address:[address] [place], [place] [address]Performed By: #### 03013-7 ####[facility] LABCLIA [id number] [place], [place] [address]KARE (RBC) [Mass/Vol]34.7 g/sMEaazjm99.5-36.0[facility] on above: Order Comment: Specimen Type: BLOOD SPECIMENOrdering Facility: [facility] Address:[address] [place], [place] [address]Performed By: #### 50640- 8 ####[facility] LABCLIA [id number] [place], [place] [address]CZI (RBC) [Entitic vol]91.1 aFRjkwxr59.0-100.0[facility] on above:Order Comment: Specimen Type: BLOOD SPECIMENOrdering Facility: [facility] Address:[address] [place], [place] [address]Performed By: #### 09816-0 ####[facility] LABCLIA [id number] [place], [place] [address]Oiydcknly (Bld) [#/Vol]0.44 10*3/uLNormal<0.87[facility] on above:Order Comment: Specimen Type: BLOOD SPECIMENOrdering Facility: [facility] Address:[address] [place], [place] [address]Performed By: #### 81343- 8 ####[facility] LABCLIA [id number] [place], [place] [address]Eimooqmri/100 WBC (Bld)5.1 %NormalSouthwest General Health Center on above:Order Comment: Specimen Type: BLOOD SPECIMENOrdering Facility: [facility] Address:[address] [place], [place] [address]Performed By: #### 46928-9 ####[facility] LABCLIA [id number] [place], [place] [address]Vcvlpdbpvpi (Bld) [#/Vol]5.57 10*3/uLNormal1.45-7.50[facility] on above:Order Comment: Specimen Type: BLOOD SPECIMENOrdering Facility: [facility] Address:[address] [place], [place] [address]Performed By: #### 10024-0 ####[facility] LABCLIA [id number] [place], [place] [address]Esmltpjvyxj/100 WBC (Bld)65.1 %NormalSouthwest General Health Center on above:Order Comment: Specimen Type: BLOOD SPECIMENOrdering Facility: [facility] Address:[address] [place], [place] [address]Performed By: #### 94241-7 ####[facility] LABCLIA [id number] [place], [place] [address]Lxfcynpbl RBC (Bld) [#/Vol] 10*3/uLNormal<0.01[facility] on above:Order Comment: Specimen Type: BLOOD SPECIMENOrdering Facility: [facility] Address:[address] [place], [place] [address]Performed By: #### 07355-4 ####[facility] LABCLIA [id number] [place], [place] [address]Sjkjozqtd RBC/100 WBC (Bld) [Ratio]0.0 /100 WBCNormal [facility] on above:Order Comment: Specimen Type: BLOOD SPECIMENOrdering Facility: [facility] Address:[address] [place], [place] [address]Performed By: #### 52913-6 ####[facility] LABIA [id number] [place], [place] [address]Lmikqwbx mean volume (Bld) [Entitic vol]9.7 fLNormal9.0-12.7COhioHealth Grant Medical Center on above:Order Comment: Specimen Type: BLOOD SPECIMENOrdering Facility: [facility] Address:[address] [place] [address] Performed By: #### 13293-7 ####[facility] LABCLIA [id number] [place], [place] [address]Njvunnaav (Bld) [#/Vol]260 10*3/jVWdlmsl000-465UlpqltixoSouthwest General Health Center on above:Order Comment: Specimen Type: BLOOD SPECIMENOrdering Facility: [facility] Address:[address] [place], [place] [address]Performed By: #### 33807-7 ####[facility] LABCLIA [id number] [place], [place] [address]HSB (Bld) [#/Vol]3.80 10*6/uLLow3.90-5.20[facility] on above:Order Comment: Specimen Type: BLOOD SPECIMENOrdering Facility: [facility] Address:[address] [place], [place] [address]Qyphzsjpf By: #### 54662-3 ####[facility]ITALIA [id number] [place], [place] [address]OAG (Bld) [#/Vol]8.55 10*3/uL Normal3.70-11.00Magruder Memorial HospitalComva medical center on above:Order Comment: Specimen Type: BLOOD SPECIMENOrdering Facility: [facility] Address:[address] [place] [address]Uwzrpeymc By: #### 79671-1 ####[facility] LABCLIA [id number] [place], [place] [address]QEZJJRcf 50-48-4134NCJFHCXcylh (SP) Office ([place]) SANNA RENDON ([id number]) 1985 F Date Time Provider Department 12/23/24 11:30 AM KATHERINE NEGRETE During your visit today, we recorded the following information about you: Temperature Pulse Respiration Blood pressure 97.6 degrees 80/minute 16/minute 103/69 Weight Height 94.4 kg 1.677 m Katherine Negrete APRN.ART HISTORY INSTRUCTOR 12/24/2024 9:07 PM Signed NAME: Sanna Rendon CLINIC NO.: [id number] DATE OF SERVICE: December 23, 2024 (Penelope) [...] later in 2018. These were found in [place], [place]. I don't have access to these [...] a target-like rash shortly before presenting to [facility] 2015 with headaches and [...] vitamin D supplementat (more content not included)...Normal [facility] HospitalComprehensive metabolic 2000 panelon 52-71-8982Jawufvt [Mass/Vol]4.1 g/dLNormal3.9-4.9COhioHealth Grant Medical Center on above:Order Comment: Specimen Type: BLOOD SPECIMENOrdering Facility: [facility] Address:[address] [place] [id number] By: #### 18999- 8 ####[facility] LABCLIA [id number] FABI DUMONTBANNER BAYWOOD MEDICAL CENTERVANESSAPEYTONA, [place] [address]JXR [Catalytic activity/Vol]43 U/MPedfus36-534AixnnwusgSouthwest General Health Center on above:Order Comment: Specimen Type: BLOOD SPECIMENOrdering Facility: [facility] Address:[address] [place], [place] [address]Performed By: #### 15886-2 ####[facility] LABCLIA [id number] FABI GREENSEBANNER BAYWOOD MEDICAL CENTERTEETEETWILIGHT, [place] [address]XAU [Catalytic activity/Vol]11 U/LNormal7-38[facility] on above:Order Comment: Specimen Type: BLOOD SPECIMENOrdering Facility: [facility] Address:[address] [place], [place] [address]Performed By: #### 90301- 8 ####[facility] LABCLIA [id number] [facility] PETER [place], [place] [address]Nmotd gap [Moles/Vol]12 mmol/LNormal8-15[facility] on above:Order Comment: Specimen Type: BLOOD SPECIMENOrdering Facility: [facility] Address:[address] [place], [place] [address]Performed By: #### 80218-2 ####[facility] LABCLIA [id number] FABI CHERRYBANNER BAYWOOD MEDICAL CENTERVANESSAPEYTONA, [place] [address]YVR [Catalytic activity/Vol]12 U/AXax72-90PvjfenjwmSouthwest General Health Center on above:Order Comment: Specimen Type: BLOOD SPECIMENOrdering Facility: [facility] Address:[address] [place], [place] [address]Performed By: #### 13675-6 ####[facility] LABCLIA [id number] [facility] PETERSEBANNER BAYWOOD [place] [address] Bilirubin [Mass/Vol]0.2 mg/dLNormal0.2-1.3COhioHealth Grant Medical Center on above:Order Comment: Specimen Type: BLOOD SPECIMENOrdering Facility: [facility] Address:[address] [place], [place] [address]Performed By: #### 19711-7 ####[facility] LABCLIA [id number] [facility] [place], [place] [address]Myjlobo [Mass/Vol]9.5 mg/dLNormal8.5-10.2COhioHealth Grant Medical Center on above:Order Comment: Specimen Type: BLOOD SPECIMENOrdering Facility: [facility] Address:[address] [place], [place] [address]Performed By: #### 66769-7 ####[facility] LABCLIA [id number] [place], [place] [address]Nzffizvf [Moles/Vol]98 mmol/TFqvxyr00-113YliubyfqiSouthwest General Health Center on above:Order Comment: Specimen Type: BLOOD SPECIMENOrdering Facility: [facility] Address:[address] [place], [place] [address]Performed By: #### 28493- 8 ####[facility] LABCLIA [id number] [facility] [place], [place] [address]BE4 [Moles/Vol]20 mmol/KZzb63-19UcvcbswaxSouthwest General Health Center on above:Order Comment: Specimen Type: BLOOD SPECIMENOrdering Facility: [facility] Address:[address] [place], [place] [address]Performed By: #### 56620-8 ####[facility] LABCLIA [id number] [place], [place] [address]Jgyzfrjxtj [Mass/Vol]0.54 mg/dL Low0.58-0.96[facility] on above:Order Comment: Specimen Type: BLOOD SPECIMENOrdering Facility: [facility] Address:[address] [place], [place] [address]Performed By: #### 01165-5 ####[facility] LABCLIA [id number] [place] [address] eGFRcr SerPlBld CKD-EPI 1068455 mL/min/1.73m???Normal>=60[facility] on above:Order Comment: Specimen Type: BLOOD SPECIMENOrdering Facility: [facility] Address:[address] [place], [place] [address]Dpugcc Comment: Estimated Glomerular Filtration Rate (eGFR) is [...] accurately reflect actual GFR. Performed By: #### 58392-4 ####[facility] LABCLIA [id number] [place], [place] [address]Qbfbolx [Mass/Vol]104 mg/dLHigh 74-99[facility] on above:Order Comment: Specimen Type: BLOOD SPECIMENOrdering Facility: [facility] Address:[address] [place] [address]Sbscsa Comment: The [place] Diabetes Association (ADA) provides guidance for cutoff [...] Standards of Medical Care in Diabetes 2016, [place] [employer]. Diabetes Care. 2016.39(Suppl 1).Performed By: #### 11751-3 ####[facility] LABCLIA [id number] [place], [place] [address]Mmzqeoypk [Moles/Vol]4.0 mmol/LNormal3.7-5.1COhioHealth Grant Medical Center on above:Order Comment: Specimen Type: BLOOD SPECIMENOrdering Facility: [facility] Address:[address], [place] [address]Rscyvamzp By: #### 91103-9 ####[facility] LABCLIA [id number] [place], [place] [address]Sbxjvgv [Mass/Vol]6.7 g/dLNormal6.3-8.0[facility] on above:Order Comment: Specimen Type: BLOOD SPECIMENOrdering Facility: [facility] Address:[address] [place], [place] [address]Performed By: #### 24338- 8 ####[facility] LABCLIA [id number] [place], [place] [address]Pximqe [Moles/Vol]130 mmol/XBno790-387HwfckysamSouthwest General Health Center on above:Order Comment: Specimen Type: BLOOD SPECIMENOrdering Facility: [facility] Address:[address] [place], [place] [address]Performed By: #### 57809-5 ####[facility] LABCLIA [id number] [place], [place] [address]Phpd nitrogen [Mass/Vol]7 mg/dL Normal7-21[facility] on above:Order Comment: Specimen Type: BLOOD SPECIMENOrdering Facility: [facility] Address:[address] [place], [place] [address]Performed By: #### 74246-6 ####[facility] LABCLIA [id number] [place] [address] Ferritin SerPl-mCncon 03-32-3547Skzwvpbl [Mass/Vol]43.5 ng/qHXfbezk57.7-205.1 [facility] on above:Order Comment: Specimen Type: BLOOD SPECIMENOrdering Facility: [facility] Address:[address] [place], [place] [address]Performed By: #### 15926-5, 2276-4, 2132-9 ####[facility] LABCLIA [id number] [place] [address] [place] AMERICAIron and Iron binding capacity panelon 08-26-2025 Iron [Mass/Vol]80 ug/aFWldcbp90-631WjiczupbbSouthwest General Health Center on above: Order Comment: Specimen Type: BLOOD SPECIMENOrdering Facility: [facility] Address:[address] [place], [place] [address]Performed By: #### 12881- 8, 2275-07, 2131-12 ####[facility] LABCLIA [id number] [address] AMERICAIron binding capacity [Mass/Vol]437 ug/xIZosr522-789VufsdevnjSouthwest General Health Center on above:Order Comment: Specimen Type: BLOOD SPECIMENOrdering Facility: [facility] Address:[address] [place], [place] [address]Performed By: #### 63674- 8, 2275-07, 2131-12 ####[facility] LABCLIA [id number] [address]Iron/TIBC [Molar ratio]18.3 %Hypeak83.0-57.0[facility] on above:Order Comment: Specimen Type: BLOOD SPECIMENOrdering Facility: [facility] Address:[address] [place], [place] [address]Performed By: #### 99560- 8, 2275-07, 2131-12 ####[facility] LABCLIA [id number] [place] [id number] [facility] AMERICAVit B12 [facility] 10-06-2940Mugdzbgte (Vitamin B12) [Mass/Vol]328 pg/fNXeyqxv366-0621EovxoozmjOhioHealth Grant Medical Center on above:Order Comment: Specimen Type: BLOOD SPECIMENOrdering Facility: [facility] Address:[address] [place], [place] [address]Performed By: #### 33031-6, 2275-07, 2131-12 ####[facility] LABCLIA [id number] [place] [id number] [facility]ITALTB UA (CLEAN/CATCH) 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 IND.on 98-49-0337IXYNEPZPY URINENegativeNEGATIVENOMS HealthcareBLOOD URINENegative NEGATIVENOMS HealthcareClarity (U)CLEARCLEARNOMS HealthcareColor (U)LT. YELLOW YELLOWNOMS HealthcareGLUCOSE URINE UANegativeNEGATIVE mg/dLNOMS Healthcare Interpretation and review of laboratory resultsAbnormalNOMS HealthcareKetones Ql (U)NegativeNEGATIVE mg/dLNOMS HealthcareLeukocyte esterase Test strip Ql (U) SMALLAbnormalNEGATIVENOMS HealthcareNITRITE URINENegativeNEGATIVENOMS Healthcare pH (U)6.0 [pH]5.0 - 9.0NOMS HealthcarePROTEIN URINENegativeNEG/TRACE mg/dLNOMS HealthcareSPECIFIC GRAVITY URINE<=1.105Kzoaobrn5.005 - 1.025NOMS HealthcareURINE MICROSCOPIC INDICATEDYESNOMS HealthcareUROBILINOGEN URINE0.2 EU/dL0.2 - 1.0 EU/dLNOAL HealthcareCLINISYNCNOMS HealthcareUS OB CERVICAL LENGTHon 12-16-[address] [address] Ultrasound Report Signed Patient: SANNA RENDON MR#: [id number] : 1985 Acct:[id number] Age/Sex: 39 / F ADM Date: Loc: [facility] 251-[address]: Wilton Herrmann D.O. Ordering Physician: Wilton Herrmann D.O. Date of Service: 12/16/24 Procedure(s): US OB cervical length Accession Number(s): [id number] cc: Wilton Herrmann D.O.; PENELOPE CASAS [address] [address] Patient Name: SANNA RENDON MRN: [id number] date: 1985 Sex: F Assigned Patient Location: [facility] Current Patient Location: Accession/Order Number: [id number] Exam Date: 12/16/2024 20:39 Report Date: 12/16/2024 [...] Beltrán M.D. 12/16/2024 8:41 PM Dictation Location: [employer] Electronically authenticated by: [id number] Y Date: 12/16/2024 20:41 Dictated By: Robert Beltrán D.O. Signed By: 12/16/242042 DD/ 40 TD/TT: Pipeline Engineer:ELVERadiologcarmen Radiologist, - 12/16/2024 [place] [address] Ultrasound Report Signed Patient: SANNA RENDON MR#: [id number] : 1985 Acct:[id number] Age/Sex: 39 / F ADM Date: Loc: [facility] [address]: Wilton Herrmann D.O. Ordering Physician: Wilton Herrmann D.O. Date of Service: 12/16/24 Procedure(s): US OB cervical length Accession Number(s): [id number] cc: Wilton Herrmann D.O.; PENELOPE CASAS [place] [address] Patient Name: SANNA RENDON MRN: [id number] date: 1985 Sex: F Assigned Patient Location: [facility] Current Patient Location: Accession/Order Number: [id number] Exam Date: 12/16/2024 20:39 Report Date: 12/16/2024 [...] Beltrán M.D. 12/16/2024 8:41 PM Dictation Location: [employer] Electronically authenticated by: [id number] Y Date: 12/16/2024 20:41 Dictated By: Robert Beltrán D.O. Signed By: 12/16/242042 DD/ 40 TD/TT: Pipeline Engineer: SHILOH HealthcareRadiology Study observation (narrative)NOMS HealthcareUS OB CERVICAL LENGTHOrdered By: Radiologist Radiology on 59-08-1941YWTICedar County Memorial Hospital Work Phone: aLL THYROID STIM HORMONEon 06-57-8707MNG Qn1.508 m[IU]/LNOMS HealthcareCLINISYNCNOMS HealthcareUrinalysis macro (dipstick) panel (U)on 03-71-1091Fokwusavm, UANegativeNegative - 4(70) +++ mg/dLNOAL Healthcare Blood, UANegativeNegative - 50 Max/mcLNOAL HealthcareClarity, UAClearNOMS HealthcareColor, UAYellowNOMS HealthcareGlucose, UANegativeNegative - 2000(110) ++++ mg/dLNOAL HealthcareInterpretation and review of laboratory resultsNormal NOM HealthcareKetones, UANegativeNegative - 160(16) ++++ mg/dLNOAL Healthcare Leukocytes, UANegativeNegative - 500+++ John/mcLNOAL HealthcareNitrite, UA NegativeNegative - PositiveNOMS HealthcarepH, UA65 - 9NOMS HealthcareProtein, UA NegativeNegative - 2000(20) ++++ mg/dLNOAL HealthcareSpec Grav, UA1.011 - 1.03 NOMS HealthcareUrobilinogen, UA1.00.2 - 12 mg/dLNOAL HealthcareNOAL Healthcare Urinalysis macro (dipstick) panel (U)on 03-92-4734Pjbzdmimh, UANegativeNegative - 4(70) +++ mg/dLNOMS HealthcareBlood, UANegativeNegative [...] mg/dLNOMS HealthcareNOMS HealthcareGlucose random or fasting- [facility] 11-19-2024 External Glucose Fasting Or Random (Fbs)94[facility] ValleyUrinalysis macro (dipstick) panel (U)on 34-07-0862Kiqrwdjzw, UA NegativeNegative - 4(70) +++ mg/dLNOMS HealthcareBlood, [...] 1.03NOMS HealthcareUrobilinogen, UA0.20.2 - 12 mg/dLNOMS HealthcareNOMS Qpsizjuuuz13([place])D3 SerPl-[facility] - Danvilleon 80-42-752325120752-edhuigecovdxlj D3 [Mass/Vol]32.1 ng/xSNjuxdd91.0-80.0[facility] on above:Order Comment: Specimen Type: BLOOD SPECIMENOrdering Facility: [facility] Address:[address] [place], [place] [address]Result Comment: Classification of 25 [place] Vitamin D status: Deficiency/Insufficiency: < or = 30 ng/ml. Sufficiency/Optimal Levels: 31-80 ng/mL Toxicity: > 100 ng/mL. Test performed by chemiluminescent immunoassay.Performed By: #### 1989-3 ####[facility] LABCLIA [id number] [address] Auto Differential panel (Bld)on 60-23-8305Uehyxftxl (Bld) [#/Vol]0.03 10*3/uLNormal<0.11CVan Wert County HospitalComment on above:Order Comment: Specimen Type: BLOOD SPECIMENOrdering Facility: [facility] Address:[address] [place], [place] [address]Performed By: #### 28902-6 ####[facility] LABIA [id number] [place], [place] [address]Jrzukbgqv/100 WBC (Bld)0.3 % NormalSouthwest General Health Center on above:Order Comment: Specimen Type: BLOOD SPECIMENOrdering Facility: [facility] Address:[address] [place], [place] [address]Performed By: #### 73792-5 ####[facility] LABCLIA [id number] [place] [address] Differential cell count method Nom (Bld)AutoNormalCVan Wert County Hospital Comment on above:Order Comment: Specimen Type: BLOOD SPECIMENOrdering Facility: [facility] Address:[address] [place] [address] Performed By: #### 34004-7 ####[facility] LABCLIA [id number] [place], [place] [address]Ryzzzdkjzbo (Bld) [#/Vol]0.05 10*3/uLNormal<0.46[facility] on above:Order Comment: Specimen Type: BLOOD SPECIMENOrdering Facility: [facility] Address:[address] [place], [place] [address]Performed By: #### 43499-9 ####[facility] LABCLIA [id number] [place], [place] [address]Wijlkdieihj/100 WBC (Bld)0.5 %NormalSouthwest General Health Center on above:Order Comment: Specimen Type: BLOOD SPECIMENOrdering Facility: [facility] Address:[address] [place], [place] [address]Performed By: #### 34978-3 ####[facility] LABCLIA [id number] [place], [place] [address]Oarcalhewts distribution width (RBC) [Ratio]14.5 %Goxshx43.5-15.0[facility] on above: Order Comment: Specimen Type: BLOOD SPECIMENOrdering Facility: [facility] Address:[address] [place], [place] [address]Performed By: #### 34357- 8 ####[facility] LABCLIA [id number] [place], [place] [address]Cukidqdomm (Bld) [Volume fraction]36.9 %Txolkx47.0-46.0 [facility] on above:Order Comment: Specimen Type: BLOOD SPECIMENOrdering Facility: [facility] Address:[address] [place], [place] [address]Performed By: #### 27609-1 ####[facility] LABIA [id number] [place], [place] [address]Thxjvmglrr (Bld) [Mass/Vol]13.0 g/iVAvplno00.5-15.5COhioHealth Grant Medical Center on above: Order Comment: Specimen Type: BLOOD SPECIMENOrdering Facility: [facility] Address:[address] [place], [place] [address]Performed By: #### 55496- 8 ####[facility] LABCLIA [id number] [place], [place] [address]Gaegfjeu granulocytes (Bld) [#/Vol]10*3/uLNormal<0.10 [facility] on above:Order Comment: Specimen Type: BLOOD SPECIMENOrdering Facility: [facility] Address:[address] [place], [place] [address]Performed By: #### 84720-2 ####[facility] LABCLIA [id number] [place], [place] [address]Tbjsryac granulocytes/100 WBC (Bld)0.2 %NormalSouthwest General Health Center on above: Order Comment: Specimen Type: BLOOD SPECIMENOrdering Facility: [facility] Address:[address] [place], [place] [address]Performed By: #### 05075- 8 ####[facility] LABIA [id number] [place], [place] [address]Lfulznhkzhz (Bld) [#/Vol]2.50 10*3/uLNormal1.00-4.00 [facility] on above:Order Comment: Specimen Type: BLOOD SPECIMENOrdering Facility: [facility] Address:[address] [place], [place] [address]Performed By: #### 75351-8 ####[facility] LABIA [id number] [place], [place] [address]Poqbfffrpfw/100 WBC (Bld)26.3 %NormalSouthwest General Health Center on above:Order Comment: Specimen Type: BLOOD SPECIMENOrdering Facility: [facility] Address:[address] [place], [place] [address]Performed By: #### 14294-0 ####[facility] LABIA [id number] [place], [place] [address]NRP (RBC) [Entitic mass]30.6 jrJvidey78.0-34.0[facility] on above:Order Comment: Specimen Type: BLOOD SPECIMENOrdering Facility: [facility] Address:[address] [place], [place] [address]Performed By: #### 43257-9 ####[facility] LABCLIA [id number] [place], [place] [address]JDMS (RBC) [Mass/Vol]35.2 g/xQDrkpnv16.5-36.0[facility] on above: Order Comment: Specimen Type: BLOOD SPECIMENOrdering Facility: [facility] Address:[address] [place], [place] [address]Performed By: #### 97464- 8 ####[facility] LABCLIA [id number] [place], [place] [address]ATI (RBC) [Entitic vol]86.8 gHFmbnpv81.0-100.0[facility] on above:Order Comment: Specimen Type: BLOOD SPECIMENOrdering Facility: [facility] Address:[address] [place], [place] [address]Performed By: #### 72348-2 ####[facility] LABCLIA [id number] [place], [place] [address]Uinzhllfj (Bld) [#/Vol]0.44 10*3/uLNormal<0.87[facility] on above:Order Comment: Specimen Type: BLOOD SPECIMENOrdering Facility: [facility] Address:[address] [place], [place] [address]Performed By: #### 95136- 8 ####[facility] LABCLIA [id number] [place], [place] [address]Bmmlkkqdq/100 WBC (Bld)4.6 %NormalSouthwest General Health Center on above:Order Comment: Specimen Type: BLOOD SPECIMENOrdering Facility: [facility] Address:[address] [place], [place] [address]Performed By: #### 15819-4 ####[facility] LABCLIA [id number] [place], [place] [address]Vgqzdtbyzfk (Bld) [#/Vol]6.48 10*3/uLNormal1.45-7.50[facility] on above:Order Comment: Specimen Type: BLOOD SPECIMENOrdering Facility: [facility] Address:[address] [place], [place] [address]Performed By: #### 13989-8 ####[facility] LABCLIA [id number] [place], [place] [address]Nvbpbzzjnse/100 WBC (Bld)68.1 %NormalSouthwest General Health Center on above:Order Comment: Specimen Type: BLOOD SPECIMENOrdering Facility: [facility] Address:[address] [place], [place] [address]Performed By: #### 58630-7 ####[facility] LABCLIA [id number] [place], [place] [address]Xcryixhvv RBC (Bld) [#/Vol] 10*3/uLNormal<0.01[facility] on above:Order Comment: Specimen Type: BLOOD SPECIMENOrdering Facility: [facility] Address:[address] [place], [place] [address]Performed By: #### 42461-1 ####[facility] LABCLIA [id number] [place], [place] [address]Dgcvjdxug RBC/100 WBC (Bld) [Ratio]0.0 /100 WBCNormal [facility] on above:Order Comment: Specimen Type: BLOOD SPECIMENOrdering Facility: [facility] Address:[address] [place], [place] [address]Performed By: #### 90419-3 ####[facility] LABIA [id number] [place], [place] [address]Ilwdvrwi mean volume (Bld) [Entitic vol]9.8 fLNormal9.0-12.7COhioHealth Grant Medical Center on above:Order Comment: Specimen Type: BLOOD SPECIMENOrdering Facility: [facility] Address:[address] [place] [address] Performed By: #### 19631-1 ####[facility] LABCLIA [id number] [place], [place] [address]Nngdjscya (Bld) [#/Vol]327 10*3/yZKrsnud490-157YbpvobriaSouthwest General Health Center on above:Order Comment: Specimen Type: BLOOD SPECIMENOrdering Facility: [facility] Address:[address] [place], [place] [address]Performed By: #### 04711-3 ####[facility] LABIA [id number] [place], [place] [address]ERU (Bld) [#/Vol]4.25 10*6/uLNormal3.90-5.20[facility] on above:Order Comment: Specimen Type: BLOOD SPECIMENOrdering Facility: [facility] Address:[address] [place], [place] [address]Performed By: #### 18587-4 ####[facility] LABIA [id number] [place], [place] [address]OPJ (Bld) [#/Vol]9.52 10*3/uLNormal3.70-11.00[facility] on above: Order Comment: Specimen Type: BLOOD SPECIMENOrdering Facility: [facility] Address:[address] [place], [place] [address]Performed By: #### 52724- 8 ####[facility] LABIA [id number] [place], [place] [address]GTOIHVnk 69-42-6078KBCBEKGuxmz (SP) Office ([place]) SANNA RENDON ([id number]) 1985 F Date Time Provider Department 10/28/24 2:30 PM KATHERINE NEGRETE During your visit today, we recorded the following information about you: Temperature Pulse Respiration Blood pressure 97 degrees 82/minute 16/minute 122/77 Weight Last Period 94.1 kg 10/28/24 Katherine Negrete APRN.ART HISTORY INSTRUCTOR 10/29/2024 9:44 PM Signed NAME: Sanna Rendon CLINIC NO.: [id number] DATE OF SERVICE: October 28, 2024 ([place]elope) [...] later in 2018. These were found in [place], [place]. I don't have access to these [...] a target-like rash shortly before [facility] with headaches [...] negative. Numbness and vi (more content not included)...NormalMagruder Memorial Hospital Sisi 48-54-5153AHYSXnmjmlzdq (NCCAP) SANNA RENDON ([id number]) 1985 F Date Time Provider Department 10/28/24 [...] is scheduled for appt with high school math tutor, 11/19/24, Leyla [facility]. She denies further questions, [...] Encounter Status:Closed by RACHAEL JOHNSON on 11/05/24NormalCOhioHealth Dublin Methodist Hospitalprehensive metabolic 2000 panelon 53-26-4486Uznnuvw [Mass/Vol]4.4 g/dLNormal3.9-4.9COhioHealth Grant Medical Center on above:Order Comment: Specimen Type: BLOOD SPECIMENOrdering Facility: [facility] Address:[address] [place], [place] [address]Performed By: #### 60855-5 ####[facility] LABCLIA [id number] [place], [place] [address]IYV [Catalytic activity/Vol]55 U/FCqyxrj46-363TnxbbqckxSouthwest General Health Center on above:Order Comment: Specimen Type: BLOOD SPECIMENOrdering Facility: [facility] Address:[address] [place], [place] [address]Performed By: #### 91095-6 ####[facility] LABCLIA [id number] [place], [place] [address]JXX [Catalytic activity/Vol]18 U/LNormal7-38[facility] on above:Order Comment: Specimen Type: BLOOD SPECIMENOrdering Facility: [facility] Address:[address] [place], [place] [address]Performed By: #### 78874- 8 ####[facility] LABCLIA [id number] [facility] [place], [place] [address]Ubddj gap [Moles/Vol]12 mmol/LNormal8-15[facility] on above:Order Comment: Specimen Type: BLOOD SPECIMENOrdering Facility: [facility] Address:[address] [place], [place] [address]Performed By: #### 57657-0 ####[facility] LABCLIA [id number] [facility] [place], [place] [address]RGS [Catalytic activity/Vol]13 U/TZrkghr86-67JjwsqdgowSouthwest General Health Center on above:Order Comment: Specimen Type: BLOOD SPECIMENOrdering Facility: [facility] Address:[address] [place], [place] [address]Performed By: #### 68334-3 ####[facility] LABCLIA [id number] [place] [address] Bilirubin [Mass/Vol]0.2 mg/dLNormal0.2-1.3COhioHealth Grant Medical Center on above:Order Comment: Specimen Type: BLOOD SPECIMENOrdering Facility: [facility] Address:[address] [place], [place] [address]Performed By: #### 61337-0 ####[facility] LABCLIA [id number] [facility] PETERSEBAN[facility] BAY[facility] MEDICAL [place]TEET[place], [place] [address]Xsypyhs [Mass/Vol]9.9 mg/dLNormal8.5-10.2COhioHealth Grant Medical Center on above:Order Comment: Specimen Type: BLOOD SPECIMENOrdering Facility: [facility] Address:[address] [place], [place] [address]Performed By: #### 33500-1 ####[facility] LABIA [id number] [place], [place] [address]Quwreqtu [Moles/Vol]99 mmol/UNbcltg22-533QnvejkbarSouthwest General Health Center on above:Order Comment: Specimen Type: BLOOD SPECIMENOrdering Facility: [facility] Address:[address] [place], [place] [address]Performed By: #### 17844- 8 ####[facility] LABCLIA [id number] [place], [place] [address]BP7 [Moles/Vol]22 mmol/KLoxsow90-24EqmxrlrnsSouthwest General Health Center on above:Order Comment: Specimen Type: BLOOD SPECIMENOrdering Facility: [facility] Address:[address] [place], [place] [address]Performed By: #### 83140-3 ####[facility] LABCLIA [id number] [place], [place] [address]Fpsxxakvlx [Mass/Vol]0.60 mg/dL Normal0.58-0.96[facility] on above:Order Comment: Specimen Type: BLOOD SPECIMENOrdering Facility: [facility] Address:[address] [place], [place] [address]Performed By: #### 94809-8 ####[facility] LABCLIA [id number] [place], [place] [address]Kbsijgbfpt and Glomerular filtration rate.predicted panel (S/P/Bld)117 mL/min/1.73m???Normal>=60[facility] on above:Order Comment: Specimen Type: BLOOD SPECIMENOrdering Facility: [facility] Address:[address] [place], [place] [address]Result Comment: Estimated Glomerular Filtration Rate (eGFR) is [...] not accurately reflect actual GFR.Performed By: #### 07462-1 ####[facility] LABCLIA [id number] [place], [place] [address]Pfxkane [Mass/Vol]101 mg/cWTevk06-71ElipwrbehSouthwest General Health Center on above:Order Comment: Specimen Type: BLOOD SPECIMENOrdering Facility: [facility] Address:[address] [place] [address]Bbvugm Comment: The [place] Diabetes Association (ADA) provides guidance for cutoff [...] Standards of Medical Care in Diabetes 2016, [place] [employer] Association. Diabetes Care. 2016.39(Suppl 1).Performed By: #### 99221-3 ####[facility] LABCLIA [id number] [place], [place] [address]Qeehjwmgs [Moles/Vol]3.5 mmol/LLow3.7-5.1COhioHealth Grant Medical Center on above:Order Comment: Specimen Type: BLOOD SPECIMENOrdering Facility: [facility] Address:[address] [place], [place] [address]Performed By: #### 12695-6 ####[facility] LABCLIA [id number] [place], [place] [address]Xkirfgi [Mass/Vol]7.6 g/dL Normal6.3-8.0[facility] on above:Order Comment: Specimen Type: BLOOD SPECIMENOrdering Facility: [facility] Address:[address] [place] [address]Rhnaowpid By: #### 17552-9 ####[facility] LABCLIA [id number] [place] [address] Sodium [Moles/Vol]133 mmol/VAot358-089GthojbnxrSouthwest General Health Center on above:Order Comment: Specimen Type: BLOOD SPECIMENOrdering Facility: [facility] Address:[address] [place], [place] [address]Performed By: #### 81140-4 ####[facility] LABCLIA [id number] [place], [place] [address]Iweh nitrogen [Mass/Vol]7 mg/dLNormal7-21Magruder Memorial HospitalComment on above:Order Comment: Specimen Type: BLOOD SPECIMENOrdering Facility: [facility] Address:[address] [place], [place] [address]Performed By: #### 99115-8 ####[facility] LABCLIA [id number] [place], [place] [address]Mpblpvsm SerPl-mCncon 84-79-1451Alvgnptj [Mass/Vol]99.6 ng/lBZiodkw33.7-205.1CVan Wert County HospitalComva medical center on above:Order Comment: Specimen Type: BLOOD SPECIMENOrdering Facility: [facility] Address:[address] [place], [place] [address]Performed By: #### 2276-4, 31526-9, 9, 3016-3 ####[facility] LABCLIA [id number] [place] [address] [place] OF AMERICAIron and Iron binding capacity panelon 87-26-8754Wnlm [Mass/Vol]72 ug/nZFkqrdy81-590HzjxtbkihMagruder Memorial Hospital Comment on above:Order Comment: Specimen Type: BLOOD SPECIMENOrdering Facility: [facility] Address:[address] [place] [address] Performed By: #### 2276-4, 07977-1, 9, 3016-3 ####[facility] LABCLIA [id number] [place] [address] [place] AMERICAIron binding capacity [Mass/Vol]399 ug/lFXkkq072-484BpohiiwueMagruder Memorial HospitalComva medical center on above:Order Comment: Specimen Type: BLOOD SPECIMENOrdering Facility: [facility] Address:[address] [place], [place] [address]Performed By: #### 2276-4, 54346-7, 2131-12, 6-3 ####[facility] LABCLIA [id number] [address] [address] [place] [facility] HOSPITALIron/TIBC [Molar ratio]18.0 % Snnusi33.0-57.0[facility] on above:Order Comment: Specimen Type: BLOOD SPECIMENOrdering Facility: [facility] Address:[address] [place] [address] [place] [id number] By: #### 2276-4, 13041-0, 2131-12, 6-3 ####[facility] LABIA [id number] [place] [id number] [facility] HEALTHTSKaiser Foundation Hospital 10-28-2024 Thyroid Stimulating (3Rd Generation) Hormone/ Tsh1.25[facility] SerPl-aCncon 54-43-2943QZP Qn1.250 m[IU]/LNormal 0.270-4.200[facility] on above:Order Comment: Specimen Type: BLOOD SPECIMENOrdering Facility: [facility] Address:[address] [place] [address] [place], [place] [address]Result Comment: If the patient is , TSH reference range varies by gestational period: First Trimester (weeks 9-12): 0.180-2.990 mIU/L Second Trimester: 0.110-3.980 mIU/L Third Trimester: 0.480-4.710 mIU/L Danny Varela et al. A Practical Approach for the Verifications and Determination of Site- and Trimester-Specific Reference Intervals for Thyroid Function tests in . Thyroid, 2019:29:3:412-420.Saeed E, et al. 2017 Guidelines of the [place] Thyroid Association for the Diagnosis and Management of Thyroid Disease during and the . Thyroid, 2017:27:3:315-389. Performed By: #### 2276-4, 40494-5, 9, 6-3 ####[facility] LABCLIA [id number] [address] [address] [facility]AVIORAL HEALTHVit B12 SerPl-mCncon 99-15-7864Yvmbxfyzp (Vitamin B12) [Mass/Vol]483 pg/sYDvdxjn804-4976XiaeruyveOhioHealth Grant Medical Center on above: Order Comment: Specimen Type: BLOOD SPECIMENOrdering Facility: [facility] Address:[address] [place], [place] [address]Performed By: #### 2276- 4, 01244-8, 2132-9, 3016-3 ####[facility] LABCLIA [id number] [facility] [id number] [place], [place] [address] [facility] OF AMERICACNPNon 56-95-2588NFSEXlfhlfpoo ([place]) SANNA RENDON ([id number]) 1985 F Date Time Provider Department 10/24/24 [...] Date Reviewed: 08/26/2024 Reviewed by: Katherine Negrete APRN.ART HISTORY INSTRUCTOR - Fully Assessed Reason for Visit: Lab [...] 05/28/2024 Encounter Status:Closed by KAUR DUNHAM on 10/24/24[facility] OB TRANSVAGINALon [id number] OB TRANSVAGINALEXAM: US OB TRANSVAGINAL HISTORY: Viability, [...] II, MD, PHD at 21-Oct-2024 08:31:21 AM [facility] TeleradiologyNormalNot AvailableComment on above:Order Comment: US OB VIABILITY PLEASE PERFORM TRANSVAGINAL ULTRASOUND IF INDICATED No LMP recorded.ALL CBC WITH AUTO DIFFon 68-07-2914JWKCEAMCP ABSOLUTE JJTL2TZZW HealthcareBasophils/100 WBC (Bld)0.2 %0.2 - 2.0 %NOMS [...] HealthcareMCHC (RBC) [Mass/Vol] 34.6 g/dL29.9 - 35.2 g/dLNOAL HealthcareMCV (RBC) [Entitic vol]86.2 fL81.0 - 99.0 fLNOMS HealthcareMONOCYTES ABSOLUTE AUTO0.6NOMS HealthcareMonocytes/100 WBC (Bld)7.2 %1.7 - 12.0 %NOMS HealthcareNEUTROPHILS ABSOLUTE AUTO5.6NODeaconess Incarnate Word Health System Neutrophils/100 WBC (Bld)62.8 %43.0 - 75.0 %NOMS HealthcarePlatelet mean volume (Bld) [Entitic vol]10.1 fL9.5 - 13.5 fLNODeaconess Incarnate Word Health SystemTB EO #0NODeaconess Incarnate Word Health System TBH UTK002SIFRMercy McCune-Brooks Hospital RBC4.42NODeaconess Incarnate Word Health SystemTB WBC8.9NODeaconess Incarnate Word Health System CLINISYNCDrug Screen, Urineon 65-20-8680Scunxwofprj/MethamphetamineNegative [facility] Health SystemBarbituratesNegativeSt. Alb[facility] HospitalMedica Health System BenzodiazepinesNegativeProMedica Health SystemCocaine MetaboliteNegative [facility] SystemEcstasyNegativeSt. Alb[facility] HospitalMedica Health SystemMethadoneNegative [facility] Hospitaled[facility] Health SystemOpiatesNegativeSt. Alb[facility] HospitalMedica Health SystemOxycodoneNegative [facility] Hospitaled[facility] Health SystemPhencyclidineNegativeSt. Albans HospitalMedica Health SystemThc Marijuana, UrineNegativeCincinnati VA Medical Centerca Health SystemHBV surface Ag IA Qlon 10-06-2024 Hepatitis B Surface AntigenNegativeMiddletown Hospital SystemHIV 1+2 Ab+HIV1 p24 Ag IA Qlon 40-05-8768UBJ 1&2 AB/AGNegativeMiddletown Hospital SystemHemoglobin A1con 24-83-0942SyF3a (Bld) [Mass fraction]5.9 %4.0 - 6.0 %[facility] SystemNo Panel Informationon 71-12-3411PDNI HealthcareTSHon 06-26-6737Zbingxy Stimulating (3Rd Generation) Hormone/ Tsh1.131[facility] SystemType and screenon 15-88-5149Bdu/Rh(D)NegativeProOhiohealth Berger HospitalHCG ( test) Ql (U)on 79-69-8829Ttglhlounalfxx and review of laboratory resultsAbnormalCedar County Memorial Hospital Preg Test, UrPositiveNegativeNortheast Regional Medical Center HealthcareUrinalysis macro (dipstick) panel (U)on 89-61-2258Loetqnwxd, UANegativeNegative - 4(70) +++ mg/dL [facility] HealthcareBlood, [...] - 12 mg/dLNOMS HealthcareNOMS HealthcareUS OB TRANSVAGINALon 15-81-2487[place], [place] [address] Ultrasound Report Signed Patient: SANNA RENDON MR#: [id number] : 1985 Acct:[id number] Age/Sex: 38 / F ADM Date: 09/11/24 Loc: US Attending Dr: Wilton Herrmann D.O. Ordering Physician: Wilton Herrmann D.O. Date of Service: 09/11/24 Procedure(s): US OB transvaginal Accession Number(s): [id number] cc: Wilton Herrmann D.O.; PENELOPE CASAS [place] [id number] Patient Name: SANNA RENDON MRN: [id number] date: 1985 Sex: F Assigned Patient Location: US Current Patient Location: US Accession/Order Number: [id number] Exam Date: 09/11/2024 11:34 Report Date: 09/11/2024 [...] Montano M.D. 09/11/2024 11:36 AM Dictation Location: [place] [address] Electronically authenticated by: [id number] Y Date: 09/11/2024 11:36 Dictated By: Prudenec Montano M.D. Signed By: 09/11/24 1138 DD/ 1136 TD/TT: Pipeline Engineer:TBHRadiology, Radiologist, MD - 09/11/2024 [place] [address] Ultrasound Report Signed Patient: SANNA RENDON MR#: [id number] : 1985 Acct:[id number] Age/Sex: 38 / F ADM Date: 09/11/24 Loc: US Attending Dr: Wilton Herrmann D.O. Ordering Physician: Wilton Herrmann D.O. Date of Service: 09/11/24 Procedure(s): US OB transvaginal Accession Number(s): [id number] cc: Wilton Herrmann D.O.; PENELOPE CASAS [address] [address] Patient Name: SANNA RENDON MRN: [id number] date: 1985 Sex: F Assigned Patient Location: US Current Patient Location: US Accession/Order Number: [id number] Exam Date: 09/11/2024 11:34 Report Date: 09/11/2024 [...] Montano M.D. 09/11/2024 11:36 AM Dictation Location: [place] [address] Electronically authenticated by: [id number] Y Date: 09/11/2024 11:36 Dictated By: Prudence Montano M.D. Signed By: 09/11/24 1138 DD/ 1136 TD/TT: Pipeline Engineer: SHILOH HealthcareRadiology Study observation (narrative)[facility] OB TRANSVAGINALOrdered By: Radiologist Radiology on 88-62-6305[facility] Work Phone: bhcg Quanton 08-49-1154YKU.beta subunit Kz68501 m[IU]/mLHigh1-3[facility] Medical CenterComment on above:Result Comment: 'F NON < 1 - 3' ' 0.2 - 1 WEEK = 5 TO 50' ' 1 - 2 WEEKS = 50 - 500' ' 2 - 3 WEEKS = 100 - 5000' ' 3 - 4 WEEKS = 500 - 62625' ' 4 - 5 WEEKS = 1000 - 45896' ' 5 - 6 WEEKS = 12681 - 011020' ' 6 - 8 WEEKS = 78899 - 467614' ' 8 - 12 WEEKS = 39226 - 931753'Performed By: #### [id number] #### [facility] [address] [place], [place] [address]Bonmijdegb Visit Summaryon 46-14-0645Wynuvwpaid Visit Summary Ambulatory Visit Summary SANNA RENDON :1985 Visit Date:09/07/2024 Ambulatory Visit Instructions Your Diagnosis Viral URI with cough Cough Your Care Team Attending Physician - Romulo Chiu PA-C Primary Care Physician - Penelope CASAS DO, FAAFP This Is Your Medications List Contact prescribing physician if questions or concerns enoxaparin (Lovenox 40 mg/0.4 mL Injection) ergocalciferol (Vitamin D) fluticasone nasal (Flonase 0.05 mg/inh Edroy) levothyroxine (levothyroxine 25 mcg (0.025 mg) Tab) [...] EDT With: Penelope CASAS DO, FAAFP Where: [facility] [address], [place] [address]- Medications What How Much When Instructions Unchanged enoxaparin (Lovenox 40 mg/ 0.4 mL Injection) 40 Milligram Subcutaneous Every 24 hours Contact prescribing physician if questions or concerns Unchanged ergocalciferol (Vitamin D) 2,000 International unit By Mouth Every week Contact prescribing physician if questions or concerns Unchanged fluticasone nasal (Flonase 0.05 mg/ inh Edroy) 2 Sprays Nasal Inhalation Every day each [...] you for choosing us for your care. [facility] Medicine Office/Clinic Noteon 53-72-3636Lwanzr Medicine Office/Clinic NoteBayridge Hospital Medicine Office/Clinic Note Chief Complaint cough, [...] created with voice recognition software. Occasional wrong-word or???uyrlj-w-kdpp??? substitutions may have occurred due to the [...] days ago on Sunday. Has been using xvhd-pvz-wijjpyv cough drops and Flonase for her allergies. [...] Discussed antibiotics un (more content not included)...[facility] HospitalComment on above:Result Comment: Electronically Signed By: Aram QUINTEROS, Romulo Lynn\.br\Date and Time Signed: 09/07/2509:46 EDTCNPNon 48-24-7434CWIOEuetegcgm (HEMASA) SANNA RENDON ([id number]) 1985 F Date Time Provider Department 09/02/24 [...] Date Reviewed: 08/26/2024 Reviewed by: Katherine Negrete APRN.ART HISTORY INSTRUCTOR - Fully Assessed Reason for Visit: Patient [...] Status:Closed by RACHAEL JOHNSON on 09/03/24[facility] Quanton 70-25-2264LMS.beta subunit Qn558 m[IU]/mLHigh1-3[facility] Medical CenterComment on above:Result Comment: 'F NON < 1 - 3' ' 0.2 - 1 WEEK = 5 TO 50' ' 1 - 2 WEEKS = 50 - 500' ' 2 - 3 WEEKS = 100 - 5000' ' 3 - 4 WEEKS = 500 - 16645' ' 4 - 5 WEEKS = 1000 - 38453' ' 5 - 6 WEEKS = 19240 - 438507' ' 6 - 8 WEEKS = 29457 - 471174' ' 8 - 12 WEEKS = 90607 - 816132'Performed By: #### [id number] #### [facility] [address] [place], [place] [address]EdCV Quanton 07-75-8893BRX.beta subunit Qn188 m[IU]/mLHigh1-3 [facility] HospitalComment on above:Result Comment: 'F NON < 1 - 3' ' 0.2 - 1 WEEK = 5 TO 50' ' 1 - 2 WEEKS = 50 - 500' ' 2 - 3 WEEKS = 100 - 5000' ' 3 - 4 WEEKS = 500 - 62402' ' 4 - 5 WEEKS = 1000 - 29523' ' 5 - 6 WEEKS = 89848 - 296277' ' 6 - 8 WEEKS = 81770 - 873901' ' 8 - 12 WEEKS = 20376 - 224122'Performed By: #### [id number] #### [facility] [address] [place], [place] [address]KTNYwc 26-56-0559WWLKCbxkjbasm (HEMASA) SANNA RENDON ([id number]) 1985 F Date Time Provider Department 08/26/24 [...] Date Reviewed: 08/26/2024 Reviewed by: Katherine Negrete APRN.ART HISTORY INSTRUCTOR - Fully Assessed Reason for Visit: Lab Orders [1688] Primary Visit Diagnosis:Antiphospholipid antibody positive [R76.0] Other Visit Diagnoses: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 Quanton 17-33-5372ZVH.beta subunit Qn83 m[IU]/mLHigh1-3FTrinity Health System Twin City Medical CenterComment on above:Result Comment: 'F NON < 1 - 3' ' 0.2 - 1 WEEK = 5 TO 50' ' 1 - 2 WEEKS = 50 - 500' ' 2 - 3 WEEKS = 100 - 5000' ' 3 - 4 WEEKS = 500 - 11783' ' 4 - 5 WEEKS = 1000 - 71636' ' 5 - 6 WEEKS = 29893 - 123089' ' 6 - 8 WEEKS = 91287 - 640970' ' 8 - 12 WEEKS = 31795 - 368261'Performed By: #### [id number] #### [facility] [address] [place], [place] [address]RpBC Quanton 84-35-2998SBY.beta subunit Qn22 m[IU]/mLHigh1-3 [facility] HospitalComment on above:Result Comment: 'F NON < 1 - 3' ' 0.2 - 1 WEEK = 5 TO 50' ' 1 - 2 WEEKS = 50 - 500' ' 2 - 3 WEEKS = 100 - 5000' ' 3 - 4 WEEKS = 500 - 57285' ' 4 - 5 WEEKS = 1000 - 72409' ' 5 - 6 WEEKS = 74234 - 082237' ' 6 - 8 WEEKS = 81680 - 240077' ' 8 - 12 WEEKS = 21211 - 200486'Performed By: #### [id number] #### [facility] [address] [place], [place] [address]VEKYETVZTUqyhagj By: SYSTEM SYSTEM on 44-58-8838PYI.beta subunit Qn22 m[IU]/mLHigh1 - 3 mIU/mLRemisol ChemComment on above:Result Comment: 'F NON < 1 - 3' ' 0.2 - 1 WEEK = 5 TO 50' ' 1 - 2 WEEKS = 50 - 500' ' 2 - 3 WEEKS = 100 - 5000' ' 3 - 4 WEEKS = 500 - 18072' ' 4 - 5 WEEKS = 1000 - 53124' ' 5 - 6 WEEKS = 54324 - 183975' ' 6 - 8 WEEKS = 20215 - 893318' ' 8 - 12 WEEKS = 22416 - 932137'TSH Qn1.86 m[IU]/LNormal0.34 - 5.60 mcIU/mLRemisol ChemTSHon 71-86-1355LRM Qn1.86 m[IU]/LNormal0.34-5.60[facility] HospitalComment on above:Performed By: #### [id number] #### [facility] [address] [place], [place] [address]ZDE ( test) Ql (U)on 45-96-0302Vkexqjudtyqwiv and review of laboratory resultsNoWills Eye HospitalPreg Test, UrNegativeNegative [facility].Interpretation:on 65-13-1655WGJ Ab IA QlComment Invalid Interpretation [facility] CenterComment on above:Result Comment: Not infected with HCV unless early or acute infection is suspected (which may be delayed in an immunocompromised individual), or other evidence exists to indicate HCV infection. Performed at: [address] [id number] PhD Jd Garciaformed By: #### [id number] #### [facility] [address] [place], [place] [address]XPB Antibody RFX to Quant PCRon 14-05-2068INN Ab IA Ql Non-ReactiveInvalid Interpretation CodeNon ReactiveAvita Health System Bucyrus Hospital Comment on above:Result Comment: Performed at: [address] [id number] PhD Jd Garciaformed By: #### [id number] #### [facility] [address] [place], [place] [address]OEA Screen 4th Generation wRfxon 68-77-8760DTO 1+2 Ab+HIV1 p24 Ag IA QlNon-ReactiveInvalid Interpretation CodeNon ReactiveAvita Health System Bucyrus HospitalComment on above:Result Comment: HIV-1/HIV-2 antibodies and HIV-1 p24 antigen were NOT detected. There is no laboratory evidence of HIV infection. HIV Negative Performed at: [address] [id number] PhD Jd Garciaformed By: #### [id number] #### [facility] [address] [place], [place] [address]Qys Be Agon 67-62-8966DAL e Ag IA QlNegativeInvalid Interpretation CodeNegativeAvita Health System Bucyrus HospitalComment on above:Result Comment: Performed at: [address] [id number] PhD Jd Garciaformed By: #### [id number] #### [facility] [address] [place], [place] [address]Qyp Bs Agon 98-24-3696LAN surface Ag IA QlNegativeInvalid Interpretation CodeNegativeAvita Health System Bucyrus HospitalComment on above:Result Comment: Performed at: [address] [id number] PhD Jd Garcaiformed By: #### [id number] #### [facility] [address] [place], [place] [address]SFWBSNPXZZcbmcqe By: SYSTEM SYSTEM on 43-71-8254Qmrqapu [Mass/Vol]5.0 g/dLNormal3.3 - 5.0 gm/dLRemisol ChemAlbumin/Globulin [Mass ratio] 1.6 {ratio}Normal1.1 - 2.2Remisol ChemALP [Catalytic activity/Vol]49 [iU]/d Jpdqwt37 - 98 Int._Unit/LRemisol ChemALT No additional P-5'-P [Catalytic activity/Vol]18 [iU]/dNormal6 - 46 Int._Unit/LRemisol ChemAnion gap [Moles/Vol] 13 mmol/LNormal6 - 16 mEq/LRemisol ChemAST [Catalytic activity/Vol]15 [iU]/d Normal5 - 43 Int._Unit/LRemisol ChemBilirubin [Mass/Vol]0.4 mg/dLNormal0.0 - 1.1 mg/dLRemisol ChemCalcium [Mass/Vol]10.0 mg/dLNormal8.9 - 11.1 mg/dLRemisol Chem Chloride [Moles/Vol]100 mmol/NAsn308 - 111 mmol/LRemisol ChemCO2 [Moles/Vol]25 mmol/UQzzdud75 - 31 mmol/LRemisol ChemCreatinine [Mass/Vol]0.7 mg/dLNormal0.5 - 1.3 mg/dLRemisol AtndqEON138 mL/min/1.73 p0Nqqqqx>=59mL/min/1.73 k3Jxrrpvv Chem Globulin (S) [Mass/Vol]3.1 g/dLNormal1.4 - 4.0 gm/dLRemisol ChemGlucose [Mass/Vol]82 mg/vBRwehzn19 - 199 mg/dLRemisol ChemPotassium [Moles/Vol]3.8 mmol/LNormal3.5 - 5.3 mmol/LRemisol ChemProtein [Mass/Vol]8.1 g/dLHigh6.0 - 7.8 gm/dLRemisol ChemSodium [Moles/Vol]134 mmol/COlh183 - 145 mmol/LRemisol ChemUrea nitrogen [Mass/Vol]7 mg/dLNormal5 - 21 mg/dLRemisol ChemUrea nitrogen/Creatinine [Mass ratio]10 mg/aeAhthtz47 - 20Remisol ChemCMPon 30-78-6459Ploofwr [Mass/Vol]5.0 g/dLNormal3.3-5.0[facility] Comment on above:Performed By: #### [id number] #### [facility] [address] [place], [place] [address]Ufvintt/Globulin (S) [Mass conc ratio]1.7Zkiehi0.1-2.2FTrinity Health System Twin City Medical CenterComment on above:Performed By: #### [id number] #### [facility] [address] [place] [address]BEF [Catalytic activity/Vol]49 Int._Unit/FKkzxrq02-78LzoojlAvita Health System Bucyrus HospitalComment on above:Performed By: #### [id number] #### [facility] [address] [place], [place] [address]VFA No additional P-5'-P [Catalytic activity/Vol]18 Int._Unit/L Normal6-46[facility] HospitalComment on above:Performed By: #### [id number] #### [facility] [address] [place] [address]Uilya gap [Moles/Vol]13 mmol/LNormal6-16[facility] HospitalComment on above:Performed By: #### [id number] #### [facility] [address] [place] [address] 383[address]DAO [Catalytic activity/Vol]15 Int._Unit/LNormal5-43[facility] HospitalComment on above:Performed By: #### [id number] #### [facility] [address] [place] [address]69[address]Ietzzkaph [Mass/Vol]0.4 mg/dLNormal0.0-1.1FTrinity Health System Twin City Medical CenterComment on above:Performed By: #### [id number] #### [facility] [address] [place] [address] 225[address]Vmjkkqx [Mass/Vol]10.0 mg/dLNormal8.9-11.1FTrinity Health System Twin City Medical CenterComment on above:Performed By: #### [id number] #### [facility] [address] [place] [address]Uoxkyggp [Moles/Vol]100 mmol/NApr613-213XbzbskAvita Health System Bucyrus HospitalComment on above:Performed By: #### [id number] #### [facility] [address] [place] [address]PH5 [Moles/Vol]25 mmol/AAderdw50-34DjgpmqAvita Health System Bucyrus Hospital Comment on above:Performed By: #### [id number] #### [facility] [address] [place], [place] [address]Xevgzplprw [Mass/Vol]0.7 mg/dLNormal0.5-1.3FTrinity Health System Twin City Medical CenterComment on above:Performed By: #### [id number] #### [facility] [address] [place], [place] [address]Pbubjoap (S) [Mass/Vol]3.1 g/dLNormal1.4-4.0[facility] HospitalComment on above:Performed By: #### [id number] #### [facility] [address] [place], [place] [address]Sjemsix [Mass/Vol]82 mg/tMBhvczg87-537UaujcnAvita Health System Bucyrus HospitalComment on above:Performed By: #### [id number] #### [facility] [address] [place], [place] [address]Uxtiungyk [Moles/Vol]3.8 mmol/LNormal3.5-5.3FTrinity Health System Twin City Medical CenterComment on above:Performed By: #### [id number] #### [facility] [address] [place], [place] [address]Ezctaqm [Mass/Vol]8.1 g/dLHigh6.0-7.8[facility] HospitalComment on above:Performed By: #### [id number] #### [facility] [address] [place], [place] [address]Txvwtm [Moles/Vol]134 mmol/YBxs214-713VzqnsnAvita Health System Bucyrus HospitalComment on above:Performed By: #### [id number] #### [facility] [address] [place], [place] [address]Menz nitrogen [Mass/Vol]7 mg/dLNormal5-21[facility] HospitalComment on above:Performed By: #### [id number] #### [facility] [address] [place], [place] [address]Wtlq nitrogen/Creatinine [Mass ratio]10 No OlnzwQczrni39-38 [facility] HospitalComment on above:Performed By: #### [id number] #### [facility] [address] [place], [place] [address]jYASlr 16-51-0501oJZW697 mL/min/1.73 l5Ldjtai>=59Fishamadou Grace Medical CenterComment on above:Performed By: #### [id number] #### [facility] [address] [place], [place] [address]Yuvkkg Medicine Office/Clinic Noteon 70-56-7017Qjejaa Medicine Office/Clinic NoteFami Medicine Office/Clinic Note HPI [...] RESENDEZ FAAFP, Penelope Tony, FAM, PED [address], [place] [address]- Additional Instructions: Patient Education Bradycardia, [...] Historical Abdominal pain (more content not included)...[facility] Comment on above:Result Comment: Electronically Signed By: Inez Banegas\.br\Date and Time Signed: 07/08/24 08:54 EDTAmbulatory Visit Summaryon 44-40-4939Itwyquyrkw Visit SummaryAmbulatory Visit Summary SANNA RENDON :1985 Visit Date:07/07/2024 Ambulatory Visit Instructions Your Care Team Attending Physician - nIez Banegas Primary Care Physician - Penelope CASAS DO, FAAFP This Is Your Medications List Contact prescribing physician if questions or concerns enoxaparin (Lovenox 40 mg/0.4 mL Injection) ergocalciferol (Vitamin D) famotidine (Pepcid 40 mg Tab) fluconazole (Diflucan 150 mg Tab) fluticasone nasal (Flonase 0.05 mg/inh Edroy) levothyroxine (levothyroxine 25 mcg (0.025 mg) Tab) [...] EDT With: Penelope CASAS DO, FAAFP Where: [facility] [address] [place] [address]- You Need to Schedule the Following Appointments Follow Up with Penelope CASAS DO, FAAFP, FAM, PED When: Where: [address] [place] [address]- Medications What How Much When Why Instructions [...] Unchanged fluticasone nasal (Flonase 0.05 mg/ inh Edroy) 2 Sprays Nasal Inhalation Every day each [...] for choosing us for your care. [facility] HospitalBhG Quanton 77-08-9041DVE.beta subunit Qn1 m[IU]/mLNormal1-3[facility] CenterComment on above:Result Comment: 'F NON < 1 - 3' ' 0.2 - 1 WEEK = 5 TO 50' ' 1 - 2 WEEKS = 50 - 500' ' 2 - 3 WEEKS = 100 - 5000' ' 3 - 4 WEEKS = 500 - 04775' ' 4 - 5 WEEKS = 1000 - 13852' ' 5 - 6 WEEKS = 97792 - 921192' ' 6 - 8 WEEKS = 89104 - 356228' ' 8 - 12 WEEKS = 43131 - 048486'Performed By: #### [id number] #### [facility] [address] [place], [place] [address]ASYYV 2 Mutationson 48-72-2760ULWKK InterpretationSee Note [facility] HospitalComment on above:Result Comment: Indication for testing: Determine genetic contribution to hyperhomocysteinemia. 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 The [employer] Practice Guidelines indicate [...] a contributing factor to hyperhomocysteinemia. Variants Tested: c.665C>T(p.Fry774Jxh) and c.1286A>C(p.Tgy500Iqi). (legacy names C677T and Q5893R, respectively). Clinical Sensitivity: Undefined; hyperhomocysteinemia is caused [...] developed and its performance characteristics determined by [employer]. It has not been cleared or approved by the [place] Food and Drug Administration. This test was performed in a CLIA certified laboratory and is intended for clinical purposes. Counseling and informed consent are recommended for genetic testing. Consent forms are available online. Performed By: [facility] [address] [place] [address] Sales Supervisor: Yayo Moncada MD, PhD CLIA Number: [id number] Mutation: [id number]Health Grandview HospitalMTHFR Mutation: K377ZDjovvtlfXkponiSwnqmUCHealth Grandview Hospital MTHFR PCR SpecimenWhole BloodNormPagosa Springs Medical CenterAnti-nuclear Ab (NASEEM) Reflexon 03-15-0694Sblo-Nuclear Ab (NASEEM), IgG by ELISANot detectedNormal None DetAdventHealth PorterComment on above:Result Comment: If suspicion of connective tissue disease is strong and NASEEM EIA is negative, consider testing for NASEEM by IFA ([id number]). No antibodies to Anti-Nuclear Antibodies (NASEEM) detected. The Extractable Nuclear Antigen Antibodies (ASSET PROTECTION ASSOCIATE, Christianson, SSA 52, SSA 60, Scleroderma, Brianna-1 [...] dsDNA, histones, SS-A (Ro), SS-B (La), Christianson, Christianson/ASSET PROTECTION ASSOCIATE, Scl-70, Brianna-1, centromeric proteins, other antigens extracted from the HEp-2 cell nucleus. NASEEM ALEX assays have been reported to have lower sensitivities than NASEEM IFA for systemic autoimmune rheumatic diseases (SARD). Negative results do not necessarily rule out SARD. Performed By: [facility] [address] [place] [address] Sales Supervisor: Yayo Moncada MD, PhD CLIA Number: [id number]-3 (Histidyl-tRNA Synthetase) Ab, IgGon 62-47-0893Mw-1 (Histidyl-tRNA Synthetase) Ab, IgG0 AU/mLNormal0-40[facility] Comment on above:Result Comment: INTERPRETIVE INFORMATION: Brianna-1 Antibody, IgG 29 AU/mL or less.........Negative 30-40 AU/mL..............Equivocal 41 AU/mL or greater......Positive Presence of Brianna-1 (antihistidyl transfer RNA [t-RNA] synthetase) antibody is associated with polymyositis and may also be seen in patients with dermatomyositis. Brianna-1 antibody is associated with pulmonary involvement (interstitial lung disease), Raynaud phenomenon, arthritis, and flooring mechanic's hands (implicated in antisynthetase syndrome). Performed By: [facility] [address] [place], [place] [id number] Sales Supervisor: Yayo Moncada MD, PhD CLIA Number: [id number] and SSB Abs, IgGon 88-96-2422ZLE 52 (Ro) (KELLEN) Ab, IgG1 AU/mLNormal0-40[facility] HospitalComment on above:Result Comment: INTERPRETIVE INFORMATION: SSA-52 [...] interstitial lung disease.SSB (La) (KELLEN) Ab, IgG0 AU/mLNormal0-40[facility] Comment on above:Result Comment: INTERPRETIVE INFORMATION: [...] (PSS) also have this antibody. Performed By: [facility] [address] [place] [id number] Sales Supervisor: Yayo Moncada MD, PhD CLIA Number: [id number] Antibodies, IgG/IgMon 56-27-7512Hajhxauukei Ab IgG95 GPLCritically high<=14[facility] HospitalComment on above: Result Comment: INTERPRETIVE INFORMATION: [...] other criteria phospholipid antibody tests. Performed by [facility], [address] [place] [address] www.[employer], Zhang Bledsoe MD, Lab. Director IA Number: [id number] Ab IgM<10Normal<=12[facility] HospitalComment on above:Result Comment: INTERPRETIVE INFORMATION: Anti- [...] other criteria phospholipid antibody tests. Performed by [facility], [address] [place] [address] www.[employer], Zhang Bledsoe MD, Lab. Director CLIA Number: [id number] (Smooth Muscle) Antibody, IgAon 24-21-1121X-Actin Ab, IgA1.8 UnitsNormal0.0-24.9[facility] HospitalComment on above: Result Comment: INTERPRETIVE INFORMATION: F-Actin (Smooth Muscle)Antibody, IgA 20.0 Units or less.....Negative 20.1 - 24.9 Units......Equivocal 25.0 Units or greater..Positive The presence of IgA antibodies against F-Actin in patients having positive serologic markers for celiac disease, such as antiendomysial, anti-transglutaminase, and/or anti-gliadin peptide IgA, indicates the presence of intestinal villus atrophy. Positive results should be confirmed with biopsy. Performed By: [facility] [address] [place] [address] Sales Supervisor: Yayo Moncada MD, PhD CLIA Number: [id number] Ab, IgG by ELISAon 91-16-1563zpSEI Ab, IgG by ALEX 4 IUNormal0-24[facility] HospitalComment on above:Result Comment: INTERPRETIVE INFORMATION: Double-Stranded DNA (dsDNA) Ab IgG ALEX 24 IU or less........Negative 25-30 IU.............Borderline Positive 30-60 IU.............Low Positive 60-200 IU............Positive 201 IU or greater....Strong Positive Positivity for anti-double stranded DNA (anti-dsDNA) IgG antibody is a diagnostic criterion of systemic lupus erythematosus (SLE). Specimens are initially screened by enzyme-linked immunosorbent assay (ALEX). If ordered as reflex ([id number]), positive ALEX results (>24 IU) will be [...] recommendations for testing may be found at [email or web address]. Performed by [facility], [address] [place] [address],[place] [address] www.[employer], Zhang Bledsoe MD, Lab. Director CLIA Number: [id number] Proteinon 70-59-8542XEC [Mass/Vol]mg/LNormal 0.0-5.0[facility] HospitalComment on above:Performed By: #### CRP #### [facility] [address] [place] [address] Zsfgnjygnbtfw Rateon 35-09-1229Dveytpnlyvejw Rate18 mmNormal0-20 [facility] HospitalComment on above:Result Comment: ESR Units mm/Hr Performed By: #### ESR #### [facility] [address] [place] [address] Fugrtc Medicine Office/Clinic Noteon 32-87-3493Irftay Medicine Office/Clinic NoteFaboston state hospital Medicine Office/Clinic Note Chief Complaint [...] bedtime), # 90 tab(s), Refills(s) 4, Pharmacy: [facility], 168, cm, 06/30/24 8:36:00 EST, Height/Length Dosing, 97.2, kg, 06/30/24 8:36:00 EST, Weight Dosing Total time spent preparing the chart, conducting of the encounter with the patient and family and time spent documenting, reviewing, and ordering tests was 25 minutes. Follow-up With When Contact Information Penelope CASAS DO, FAAFP, CHRIS, PED In 2 months [address], [place] [address]- ([phone] (more content not included)...[facility] Comment on above:Result Comment: Electronically Signed By: Penelope CASAS DO, FAAFP\.br\Date and Time Signed: 06/30/24 09:24 ESTRECURRENT VAGINITIS (HTRX)on 85-53-7621DIIQKLTEL BVWTENF8PGOM HealthcareATOPOBIUM VAGINAENot detectedNOMS HealthcareBVAB 2,3 (BACTERIAL VAGINOSIS ASSOCIATED BACTERIA 2, 3); MOBILUNCUS BBC8QPCJ HealthcareBVAB 2,3 (BACTERIAL VAGINOSIS ASSOCIATED BACTERIA 2, 3); MOBILUNCUS SPPNot detectedNOMS HealthcareCANDIDA ALBICANS, PARAPSILOSIS, EQKQHKROZY8CGCQ HealthcareCANDIDA ALBICANS, PARAPSILOSIS, TROPICALISNot detected NOMS HealthcareCANDIDA WPOAKUOF1ZKCG HealthcareCANDIDA GLABRATANot detectedNOMS HealthcareCANDIDA WCRAOK8PZGA HealthcareCANDIDA KRUSEINot detectedNOMS HealthcareCHLAMYDIA JPSQIZVEORY5FGOP HealthcareCHLAMYDIA TRACHOMATISNot detected NOMS HealthcareGARDNERELLA QNPYEJNTK2XYKJ HealthcareGARDNERELLA VAGINALISNot detectedNOMS HealthcareMEGASPHAERA (TYPES 1, 2)0NOMS HealthcareMEGASPHAERA (TYPES 1, 2)Not detectedNOMS HealthcareMYCOPLASMA GHZWOQTRBJ6JJSE Healthcare MYCOPLASMA GENITALIUMNot detectedNOMS HealthcareNEISSERIA QWPPZBGCCHM9TQQY HealthcareNEISSERIA GONORRHOEAENot detectedNOMS HealthcareTRICHOMONAS VAGINALIS0 NOMS HealthcareTRICHOMONAS VAGINALISNot detectedNOMS HealthcareNOMS Healthcare Urinalysis macro (dipstick) panel (U)on 63-48-5879Xhcqvlnlw, UANegativeNegative - 4(70) +++ mg/dLNOMS HealthcareBlood, UANegativeNegative [...] - 12 mg/dLNOMS HealthcareNOMS HealthcareAmbulatory Visit Summaryon 73-58-8090Xbgrujfesj Visit SummaryAmbulatory Visit Summary SANNA RENDON :1985 [...] (Vitamin D) fluticasone nasal (Flonase 0.05 mg/inh Edroy) levothyroxine (levothyroxine 25 mcg (0.025 mg) Tab) [...] EDT With: Penelope CASAS DO, FAAFP Where: [facility] [address] [place] [address] [place] [address]- Medications What How Much When Why Instructions New azithromycin (Zithromax 250 mg Tab) 1 Packets By Mouth As Directed Sinusitis Duration: 5 Days Refills: 1 as directed on package labeling Pickup at [facility] New fluconazole (Diflucan 150 mg Tab) 1 Tablets By Mouth Every 7 days Yeast infection Refills: 1 Pickup at [facility] 1985 Unchanged enoxaparin (Lovenox 40 mg/ 0.4 mL Injection) 40 Milligram Subcutaneous Every 24 hours Contact prescribing physician if questions or concerns Unchanged ergocalciferol (Vitamin D) 2,000 International unit By Mouth Every week Contact prescribing physician if questions or concerns Unchanged fluticasone nasal (Flonase 0.05 mg/ inh Edroy) 2 Sprays Nasal Inhalation Every day each [...] physician if questions or concerns Pharmacy Information [facility] 1985: [address] [place], [place] [id number] [phone] Allergies Milk Products (Illness) ciprofloxacin (Numbness and [...] you for choosing us for your care. [facility] Medicine Office/Clinic Noteon 50-33-4219Oraypv Medicine Office/Clinic NoteBayridge Hospital Medicine Office/Clinic Note Chief Complaint Sinus [...] day(s), # 6 tab(s), Refills(s) 1, Pharmacy: [facility] 1985, 168, cm, 06/09/24 14:03:00 EST, Height/Length Dosing, 98.4, kg, 06/19/24 16:19:00 EST, Weight Dosing Yeast infection (B37.9: Candidiasis, unspecified) Ordered: fluconazole, 150 mg = 1 tab(s), Oral, q7day, # 4 tab(s), Refills(s) 1, Pharmacy: [facility] 1985, 168, cm, 06/09/24 14:03:00 [...] Oral, q7day, 1 refills Flonase 0.05 mg/inh Edroy, 2 spray(s), Nasal, Daily, 11 refills levothyroxine [...] Given Patient Refuses influe (more content not included)...NormalAvita Health System Bucyrus HospitalComment on above:Result Comment: Electronically Signed By: MANDI BRYANT\.br\Date and Time Signed: 06/19/24 16:37 ESTCBC w/ Auto Diffon 06-12-2024 Basophils/100 WBC (Bld)0.3 %Normal0.0-2.0[facility] HospitalComment on above:Performed By: #### [id number] #### [facility] [address] [place], [place] [address]Zzjuydrci/Leukocytes Auto (Bld) [Pure # fraction]0.0 E9/LNormal 0.0-0.2FTrinity Health System Twin City Medical CenterComment on above:Performed By: #### [id number] #### [facility] [address] [place], [place] [address]Vnqegdsdbew (Bld) [#/Vol]0.0 E9/LNormal0.0-0.5FTrinity Health System Twin City Medical CenterComment on above:Performed By: #### [id number] #### [facility] [address] [place], [place] [address]Ocuftgwxbxo/100 WBC (Bld)0.3 %Normal0.0-8.0[facility]cy[facility] HospitalComment on above:Performed By: #### [id number] #### [facility] [address] [place], [place] [address]Yzihbwyxkjv distribution width (RBC) [Ratio]14.0 %Normal 10.9-14.2FTrinity Health System Twin City Medical CenterComment on above:Performed By: #### [id number] #### [facility] [address] [place] [address]Ycmurjzhra (Bld) [Volume fraction]40.9 %Kcgicn30.0-46.0[facility] HospitalComment on above:Performed By: #### [id number] #### [facility] [address] [place] [address]Tjuqsynbdj (Bld) [Mass/Vol]13.9 g/qRDwjbry11.0-16.0[facility] HospitalComment on above:Performed By: #### [id number] #### [facility] [address] [place] [address]Ugsfjlkking (Bld) [#/Vol]2.8 E9/LNormal1.0-4.0[facility] HospitalComment on above:Performed By: #### [id number] #### [facility] [address] [place] [address]Uqthcqmmzei/100 WBC (Bld)24.6 %Tldaps87.0-50.0[facility] HospitalComment on above:Performed By: #### [id number] #### [facility] [address] [place] [address] 466[address]OMI (RBC) [Entitic mass]30.7 sqFrodin69.0-34.0[facility] HospitalComment on above:Performed By: #### [id number] #### [facility] [address] [place] [address]80[address]QCUA (RBC) [Mass/Vol]33.9 g/tNExrfyt37.4-36.0[facility] HospitalComment on above:Performed By: #### [id number] #### [facility] [address] [place] [address]NDD (RBC) [Entitic vol]90.6 aOMridfk02.0-100.0[facility] HospitalComment on above:Performed By: #### [id number] #### [facility] [address] [place] [address]Mbwiuxaiv (Bld) [#/Vol]0.6 E9/LNormal0.2-1.0[facility] HospitalComment on above:Performed By: #### [id number] #### [facility] [address] [place] [address]Madpjzkktce (Bld) [#/Vol]8.0 E9/LHigh2.0-7.5FTrinity Health System Twin City Medical CenterComment on above:Performed By: #### [id number] #### [facility] [address] [place] [address]Xttollyfmfq/100 WBC (Bld)69.6 %Mofeoo00.0-75.0[facility] HospitalComment on above:Performed By: #### [id number] #### [facility] [address] [place] [address]Uhukladv032.0 E9/ORdafpr960.0-500.0[facility] Comment on above:Performed By: #### [id number] #### [facility] [address] [place] [address]15[address]Zlpekbyq mean volume (Bld) [Entitic vol]8.2 fLNormal6.4-10.8 [facility] HospitalComment on above:Performed By: #### [id number] #### [facility] [address] [place] [address]87[address]NEF (Bld) [#/Vol]4.5 E12/LNormal4.3-5.9[facility] HospitalComment on above:Performed By: #### [id number] #### [facility] [address] [place], [place] [address]KIM corrected for nucl RBC Auto (Bld) [#/Vol]11.5 E9/LHigh 4.0-11.0[facility] HospitalComment on above:Performed By: #### [id number] #### [facility] [address] [place], [place] [address]EBIGEWXOMGFnkhpjz By: SYSTEM SYSTEM on 84-80-7634Ftznejxgz/100 WBC (Bld)0.3 %Normal0.0 - 2.0 %Remisol HemeBasophils/Leukocytes Auto (Bld) [Pure # fraction]0.0 E9/LNormal0.0 - 0.2 E9/LRemisol HemeEosinophils (Bld) [#/Vol]0.0 E9/LNormal0.0 - 0.5 E9/LRemisol HemeEosinophils/100 WBC (Bld)0.3 %Normal0.0 - 8.0 %Remisol HemeErythrocyte distribution width (RBC) [Ratio]14.0 %Ubdbqk53.9 - 14.2 %Remisol HemeHematocrit (Bld) [Volume fraction]40.9 %Edptwh30.0 - 46.0 % Remisol HemeHemoglobin (Bld) [Mass/Vol]13.9 g/oOWkkovb46.0 - 16.0 gm/dLRemisol HemeLymphocytes (Bld) [#/Vol]2.8 E9/LNormal1.0 - 4.0 E9/LRemisol Heme Lymphocytes/100 WBC (Bld)24.6 %Gneqbx18.0 - 50.0 %Remisol HemeMCH (RBC) [Entitic mass]30.7 trSkgcly79.0 - 34.0 pgRemisol HemeMCHC (RBC) [Mass/Vol]33.9 g/dL Flkusk27.4 - 36.0 gm/dLRemisol HemeMCV (RBC) [Entitic vol]90.6 oWLxzdis91.0 - 100.0 fLRemisol HemeMonocytes (Bld) [#/Vol]0.6 E9/LNormal0.2 - 1.0 E9/LRemisol HemeMonocytes/100 WBC (Bld)5.2 %Normal4.0 - 14.0 %Remisol HemeNeutrophils (Bld) [#/Vol]8.0 E9/LHigh2.0 - 7.5 E9/LRemisol HemeNeutrophils/100 WBC (Bld)69.6 % Gczxln38.0 - 75.0 %Remisol NoilRpeqjnsv519.0 E9/JNawwmu876.0 - 500.0 E9/LRemisol HemePlatelet mean volume (Bld) [Entitic vol]8.2 fLNormal6.4 - 10.8 fLRemisol HemeRBC (Bld) [#/Vol]4.5 E12/LNormal4.3 - 5.9 E12/LRemisol HemeWBC corrected for nucl RBC Auto (Bld) [#/Vol]11.5 E9/LHigh4.0 - 11.0 E9/LRemisol HemeAmbulatory Visit Summaryon 70-27-6575Axhoiuizlw Visit SummaryAmbulatory Visit Summary SANNA RENDON :1985 Visit Date:06/09/2024 Ambulatory Visit Instructions Your Diagnosis Antiphospholipid antibody with hypercoagulable state H/O: CVA Gestational diabetes BMI 35.0-35.9,adult Morbid obesity Your Care Team Attending Physician - Penelope CASAS DO, FAAFP Primary Care Physician - Penelope CASAS DO, FAAFP This Is Your Medications List fluticasone nasal (Flonase 0.05 mg/inh Edroy) Contact prescribing physician if questions or concerns [...] EDT With: Penelope CASAS DO, FAAFP Where: [facility] [address], [facility] [place] [address]- Medications What How Much When Instructions New fluticasone nasal (Flonase 0.05 mg/ inh Edroy) 2 Sprays Nasal Inhalation Every day Refills: 11 each nostril Pickup at [facility]/pharmacy #[id number] Unchanged enoxaparin (Lovenox 40 mg/ [...] physician if questions or concerns Pharmacy Information [facility]/pharmacy #[id number]: [address] [place], [place] [id number] [phone] Allergies Milk Products (Illness) ciprofloxacin (Numbness and [...] for choosing us for your care. NormalFisher Grace Medical CenterBhCG Quanton 76-78-6033FFN.beta subunit Qn2 m[IU]/mLNormal1-3Fisher Grace Medical CenterComment on above:Result Comment: 'F NON < 1 - 3' ' 0.2 - 1 WEEK = 5 TO 50' ' 1 - 2 WEEKS = 50 - 500' ' 2 - 3 WEEKS = 100 - 5000' ' 3 - 4 WEEKS = 500 - 51123' ' 4 - 5 WEEKS = 1000 - 10147' ' 5 - 6 WEEKS = 52216 - 735702' ' 6 - 8 WEEKS = 08192 - 475548' ' 8 - 12 WEEKS = 21675 - 865715'Performed By: #### [id number] #### [facility] [address] [place], [place] [address]WKXOKLQQCUbvgsfs By: SYSTEM SYSTEM on 90-42-9708UJC Qn1.97 m[IU]/LNormal0.34 - 5.60 mcIU/mLRemisol ChemFamily Medicine Office/Clinic Noteon 38-34-5622Cyzfam Medicine Office/Clinic NoteFamily Medicine Office/Clinic Note Chief [...] from inside ear, not outside Moved from [place] Review of Systems PHQ Score Initial Depression [...] hypercoagulable state (D68.61: Antiphospholipid syndrome) [facility] Department of hematology/oncology following and treating with Lovenox, please see their consultation 05/28/2024. Treats with Lovenox 40 mg subcu every 24 hours 2. H/O: CVA (Z86.79: Personal history of other diseases of the circulatory system) Please see #1. 3. Gestational diabetes (O24.419: Gestational diabetes mellitus in , unspecified control) [facility] following. Metformin XR 500 mg tabs [...] PED In 6 months [address] [place] [address]- [phone] (more content not included)...[facility] HospitalComment on above:Result Comment: Electronically Signed By: Penelope CASAS DO, FAAFP\.br\Date and Time Signed: 06/09/24 14:24 ESTTSHon 61-10-8432PXU Qn1.97 m[IU]/LNormal0.34-5.60[facility] HospitalComment on above:Performed By: #### [id number] #### [facility] [address] [place], [place] [address]SeTG Quanton 54-38-0820QGB.beta subunit Qn6 m[IU]/mLHigh1-3 [facility]cy[facility] HospitalComment on above:Result Comment: 'F NON < 1 - 3' ' 0.2 - 1 WEEK = 5 TO 50' ' 1 - 2 WEEKS = 50 - 500' ' 2 - 3 WEEKS = 100 - 5000' ' 3 - 4 WEEKS = 500 - 28120' ' 4 - 5 WEEKS = 1000 - 40502' ' 5 - 6 WEEKS = 27251 - 705269' ' 6 - 8 WEEKS = 97653 - 977225' ' 8 - 12 WEEKS = 36009 - 183652'Performed By: #### [id number] #### [facility] [address] [place], [place] [address]([place])D3 [facility] 094191-alqcefqncycdyd D3 [Mass/Vol] 27.8 ng/mLLow31.0-80.0Mag[facility]uder Memorial HospitalComment on above:Order Comment: Specimen Type: BLOOD SPECIMENOrdering Facility: [facility] Address:[address], [place] [address]Rtxkiv Comment: Classification of 25 [place] Vitamin D status: Deficiency/Insufficiency: < or = 30 ng/ml. Sufficiency/Optimal Levels: 31-80 ng/mL Toxicity: > 100 ng/mL. Test performed by chemiluminescent immunoassay.Performed By: #### 1989-3 ####[facility] LABCLIA [id number] [facility]ALK [id number] Auto Differential panel (Bld)on 79-17-7343Sevxzzmvb (Bld) [#/Vol]0.03 10*3/uLNormal<0.11COhioHealth Grant Medical Center on above:Order Comment: Specimen Type: BLOOD SPECIMENOrdering Facility: [facility] Address:[address] [place], [place] [address]Performed By: #### 21600-9 ####[facility] LABCLIA [id number] [place], [place] [address]Gczpgwbev/100 WBC (Bld)0.4 % NormalSouthwest General Health Center on above:Order Comment: Specimen Type: BLOOD SPECIMENOrdering Facility: [facility] Address:[address] [place], [place] [address]Performed By: #### 56783-4 ####[facility] LABCLIA [id number] [place] [address] Differential cell count method Nom (Bld)AutoNormalCVan Wert County Hospital Comment on above:Order Comment: Specimen Type: BLOOD SPECIMENOrdering Facility: [facility] Address:[address] [place] [address] Performed By: #### 69454-1 ####[facility] LABIA [id number] [place], [place] [address]Vsadozxoxqa (Bld) [#/Vol]0.08 10*3/uLNormal<0.46[facility] on above:Order Comment: Specimen Type: BLOOD SPECIMENOrdering Facility: [facility] Address:[address] [place], [place] [address]Performed By: #### 60221-6 ####[facility] LABCLIA [id number] [place], [place] [address]Tawcgkkyrnv/100 WBC (Bld)0.9 %NormalSouthwest General Health Center on above:Order Comment: Specimen Type: BLOOD SPECIMENOrdering Facility: [facility] Address:[address] [place], [place] [address]Performed By: #### 14296-9 ####[facility] LABIA [id number] [place], [place] [address]Kjbmfozvlqs distribution width (RBC) [Ratio]13.8 %Tdcijo11.5-15.0[facility] on above: Order Comment: Specimen Type: BLOOD SPECIMENOrdering Facility: [facility] Address:[address] [place], [place] [address]Performed By: #### 67877- 8 ####[facility] LABIA [id number] [place], [place] [address]Lpotreclej (Bld) [Volume fraction]34.0 %Low36.0-46.0 [facility] on above:Order Comment: Specimen Type: BLOOD SPECIMENOrdering Facility: [facility] Address:[address] [place], [place] [address]Performed By: #### 29816-8 ####[facility] LABIA [id number] [place], [place] [address]Dzmwjzbubv (Bld) [Mass/Vol]11.5 g/kUIewfbs92.5-15.5COhioHealth Grant Medical Center on above: Order Comment: Specimen Type: BLOOD SPECIMENOrdering Facility: [facility] Address:[address] [place], [place] [address]Performed By: #### 74506- 8 ####[facility] LABIA [id number] [place], [place] [address]Chjhfrvx granulocytes (Bld) [#/Vol]0.03 10*3/uLNormal <0.10[facility] on above:Order Comment: Specimen Type: BLOOD SPECIMENOrdering Facility: [facility] Address:[address] [place], [place] [address]Performed By: #### 47983-6 ####[facility] LABCLIA [id number] [place], [place] [address]Lfgazvyz granulocytes/100 WBC (Bld)0.4 %NormalSouthwest General Health Center on above: Order Comment: Specimen Type: BLOOD SPECIMENOrdering Facility: [facility] Address:[address] [place], [place] [address]Performed By: #### 01555- 8 ####[facility] LABCLIA [id number] [place], [place] [address]Moshluyfflc (Bld) [#/Vol]2.86 10*3/uLNormal1.00-4.00 [facility] on above:Order Comment: Specimen Type: BLOOD SPECIMENOrdering Facility: [facility] Address:[address] [place], [place] [address]Performed By: #### 95750-9 ####[facility] LABCLIA [id number] [place], [place] [address]Gnlqfbcattn/100 WBC (Bld)33.4 %NormalSouthwest General Health Center on above:Order Comment: Specimen Type: BLOOD SPECIMENOrdering Facility: [facility] Address:[address] [place], [place] [address]Performed By: #### 54322-5 ####[facility] LABCLIA [id number] [place], [place] [address]GKE (RBC) [Entitic mass]30.8 hqFlzxcg46.0-34.0[facility] on above:Order Comment: Specimen Type: BLOOD SPECIMENOrdering Facility: [facility] Address:[address] [place], [place] [address]Performed By: #### 99487-2 ####[facility] LABCLIA [id number] [place], [place] [address]ZHRJ (RBC) [Mass/Vol]33.8 g/zLPfwofz37.5-36.0[facility] on above: Order Comment: Specimen Type: BLOOD SPECIMENOrdering Facility: [facility] Address:[address] [place], [place] [address]Performed By: #### 51062- 8 ####[facility] LABCLIA [id number] [place], [place] [address]KKN (RBC) [Entitic vol]91.2 jNIdmcfh07.0-100.0[facility] on above:Order Comment: Specimen Type: BLOOD SPECIMENOrdering Facility: [facility] Address:[address] [place], [place] [address]Performed By: #### 02715-7 ####[facility] LABIA [id number] [place], [place] [address]Jpstqejdm (Bld) [#/Vol]0.66 10*3/uLNormal<0.87[facility] on above:Order Comment: Specimen Type: BLOOD SPECIMENOrdering Facility: [facility] Address:[address] [place], [place] [address]Performed By: #### 42893- 8 ####[facility] LABIA [id number] [place], [place] [address]Mqrxdidug/100 WBC (Bld)7.7 %NormalSouthwest General Health Center on above:Order Comment: Specimen Type: BLOOD SPECIMENOrdering Facility: [facility] Address:[address] [place], [place] [address]Performed By: #### 12882-6 ####[facility] LABIA [id number] [place], [place] [address]Uaghmikxdyp (Bld) [#/Vol]4.90 10*3/uLNormal1.45-7.50[facility] on above:Order Comment: Specimen Type: BLOOD SPECIMENOrdering Facility: [facility] Address:[address] [place], [place] [address]Performed By: #### 04525-2 ####[facility] LABCLIA [id number] [place], [place] [address]Sjftbojduuu/100 WBC (Bld)57.2 %NormalSouthwest General Health Center on above:Order Comment: Specimen Type: BLOOD SPECIMENOrdering Facility: [facility] Address:[address] [place], [place] [address]Performed By: #### 00941-3 ####[facility] LABCLIA [id number] [place], [place] [address]Xrzzjrmfq RBC (Bld) [#/Vol] 10*3/uLNormal<0.01[facility] on above:Order Comment: Specimen Type: BLOOD SPECIMENOrdering Facility: [facility] Address:[address] [place], [place] [address]Performed By: #### 78693-7 ####[facility] LABCLIA [id number] [place], [place] [address]Oamllwpsd RBC/100 WBC (Bld) [Ratio]0.0 /100 WBCNormal [facility] on above:Order Comment: Specimen Type: BLOOD SPECIMENOrdering Facility: [facility] Address:[address] [place], [place] [address]Performed By: #### 60506-6 ####[facility] LABCLIA [id number] [place], [place] [address]Lnzgwifl mean volume (Bld) [Entitic vol]9.6 fLNormal9.0-12.7COhioHealth Grant Medical Center on above:Order Comment: Specimen Type: BLOOD SPECIMENOrdering Facility: [facility] Address:[address] [place] [address] Performed By: #### 25343-2 ####[facility] LABCLIA [id number] [place], [place] [address]Hkguvndgk (Bld) [#/Vol]345 10*3/tCJyhbpr497-663DnmgzgxapSouthwest General Health Center on above:Order Comment: Specimen Type: BLOOD SPECIMENOrdering Facility: [facility] Address:[address] [place], [place] [address]Performed By: #### 22673-2 ####[facility] LABIA [id number] [place], [place] [address]GUL (Bld) [#/Vol]3.73 10*6/uLLow3.90-5.20[facility] on above:Order Comment: Specimen Type: BLOOD SPECIMENOrdering Facility: [facility] Address:[address] [place], [place] [address]Performed By: #### 30831-8 ####[facility] LABIA [id number] [place], [place] [address]ZGM (Bld) [#/Vol]8.56 10*3/uL Normal3.70-11.00[facility] on above:Order Comment: Specimen Type: BLOOD SPECIMENOrdering Facility: [facility] Address:[address] [place], [place] [address]Performed By: #### 72147-3 ####[facility] LABIA [id number] [place], [place] [address]QIICLNdh [id number] (SP) Office (HEMASA) SANNA RENDON ([id number]) 1985 F Date Time Provider Department 05/28/24 1:00 PM ABHYANKAR, KRISTOFER HEMASA During your visit today, we recorded the following information about you: Temperature Pulse Respiration Blood pressure 97.6 degrees 72/minute 16/minute 123/83 Weight Height 98.5 kg 1.677 m Kristofer Calix MD 05/29/2024 9:13 AM Signed NAME: Sanna Rendon CLINIC NO.: [id number] DATE OF SERVICE: May 28, 2024 (Levon) [...] later in 2018. These were found in [place], [place]. I don't have access to these [...] a target-like rash shortly before [facility] with headaches [...] soon. When she had a stroke in [place], she had symptoms up to a month [...] having trouble losing weight. (more content not included)...NormalMagruder Memorial HospitalCNPNon 05-28-2024 CNPNTelephone (NCCAP) SANNA RENDON ([id number]) 1985 F Date Time Provider Department 05/28/24 [...] 05/28/2024 Encounter Status:Closed by TAYLOR ESCUDERO on 05/28/24NormalClevelNov[facility] Health/NHRMCComprehensive metabolic 2000 panelon [id number] [Mass/Vol]4.4 g/dLNormal3.9-4.9ClevelNovant Health/NHRMCComment on above:Order Comment: Specimen Type: BLOOD SPECIMENOrdering Facility: [facility] Address:[address] [place] [address] [place] [id number] By: #### 49879-1 ####[facility] LABCLIA [id number] [place] [address]JMU [Catalytic activity/Vol]59 U/THqfgfk54-766ZibmqzxlkSouthwest General Health Center on above:Order Comment: Specimen Type: BLOOD SPECIMENOrdering Facility: [facility] Address:[address] [place], [place] [address]Performed By: #### 83672-2 ####[facility] LABCLIA [id number] [place], [place] [address]POZ [Catalytic activity/Vol]12 U/LNormal7-38[facility] on above:Order Comment: Specimen Type: BLOOD SPECIMENOrdering Facility: [facility] Address:[address] [place], [place] [address]Performed By: #### 16316- 8 ####[facility] LABCLIA [id number] F[place]I DUMONTBANNER BAY[facility] MEDICAL CENTERTEETE[place], [place] [address]Djpmi gap [Moles/Vol]10 mmol/LNormal8-15[facility] on above:Order Comment: Specimen Type: BLOOD SPECIMENOrdering Facility: [facility] Address:[address] [place], [place] [address]Performed By: #### 08887-3 ####[facility] LABCLIA [id number] [place], [place] [address]DSH [Catalytic activity/Vol]11 U/BZnq44-87RxdmjcmygSouthwest General Health Center on above:Order Comment: Specimen Type: BLOOD SPECIMENOrdering Facility: [facility] Address:[address] [place], [place] [address]Performed By: #### 79241-6 ####[facility] LABCLIA [id number] [place] [address] Bilirubin [Mass/Vol]0.2 mg/dLNormal0.2-1.3COhioHealth Grant Medical Center on above:Order Comment: Specimen Type: BLOOD SPECIMENOrdering Facility: [facility] Address:[address] [place], [place] [address]Performed By: #### 09028-0 ####[facility] LABCLIA [id number] [place], [place] [address]Zhfinsm [Mass/Vol]9.7 mg/dLNormal8.5-10.2COhioHealth Grant Medical Center on above:Order Comment: Specimen Type: BLOOD SPECIMENOrdering Facility: [facility] Address:[address] [place], [place] [address]Performed By: #### 19844-3 ####[facility] LABCLIA [id number] [place], [place] [address]Mfdacjzz [Moles/Vol]99 mmol/VBposzz33-779KwobhvisdSouthwest General Health Center on above:Order Comment: Specimen Type: BLOOD SPECIMENOrdering Facility: [facility] Address:[address] [place], [place] [address]Performed By: #### 50574- 8 ####[facility] LABCLIA [id number] [place], [place] [address]UZ4 [Moles/Vol]25 mmol/BEyadik10-18QnyridmwzSouthwest General Health Center on above:Order Comment: Specimen Type: BLOOD SPECIMENOrdering Facility: [facility] Address:[address] [place], [place] [address]Performed By: #### 71725-6 ####[facility] LABCLIA [id number] [place], [place] [address]Gammxzvqlg [Mass/Vol]0.71 mg/dL Normal0.58-0.96[facility] on above:Order Comment: Specimen Type: BLOOD SPECIMENOrdering Facility: [facility] Address:[address] [place], [place] [address]Performed By: #### 98946-5 ####[facility] LABCLIA [id number] [place], [place] [address]Ifhcdxtgla and Glomerular filtration rate.predicted panel (S/P/Bld)112 mL/min/1.73m???Normal>=60[facility] on above:Order Comment: Specimen Type: BLOOD SPECIMENOrdering Facility: [facility] Address:[address] [place] [address]Eyoiub Comment: Estimated Glomerular Filtration Rate (eGFR) is [...] not accurately reflect actual GFR.Performed By: #### 27599-8 ####[facility] LABCLIA [id number] [place], [place] [address]Toupfxn [Mass/Vol]79 mg/jVTnvhpp97-54QbypgqkfmSouthwest General Health Center on above:Order Comment: Specimen Type: BLOOD SPECIMENOrdering Facility: [facility] Address:[address] [place] [address]Sqngqv Comment: The [place] Diabetes Association (ADA) provides guidance for cutoff [...] Standards of Medical Care in Diabetes 2016, [place] Diabetes Association. Diabetes Care. 2016.39(Suppl 1).Performed By: #### 88253-8 ####[facility] LABCLIA [id number] [place], [place] [address]Eczcdcjul [Moles/Vol]4.0 mmol/LNormal3.7-5.1COhioHealth Grant Medical Center on above:Order Comment: Specimen Type: BLOOD SPECIMENOrdering Facility: [facility] Address:[address] [place], [place] [address]Performed By: #### 47306-2 ####[facility] LABCLIA [id number] [place], [place] [address]Mqndutt [Mass/Vol]7.1 g/dLNormal6.3-8.0[facility] on above:Order Comment: Specimen Type: BLOOD SPECIMENOrdering Facility: [facility] Address:[address] [place], [place] [address]Performed By: #### 01809- 8 ####[facility] LABCLIA [id number] [place], [place] [address]Bjnsrf [Moles/Vol]134 mmol/QYsu309-298QhjpbqqpkSouthwest General Health Center on above:Order Comment: Specimen Type: BLOOD SPECIMENOrdering Facility: [facility] Address:[address] [place], [place] [address]Performed By: #### 33070-6 ####[facility] LABCLIA [id number] [place], [place] [address]Dnak nitrogen [Mass/Vol]8 mg/dL Normal7-21[facility] on above:Order Comment: Specimen Type: BLOOD SPECIMENOrdering Facility: [facility] Address:[address] [place], [place] [address]Performed By: #### 45797-4 ####[facility] LABCLIA [id number] [place] [address] Ferritin SerPl-mCncon 59-02-8218Byrckuht [Mass/Vol]73.8 ng/bJOuxssg98.7-205.1 [facility] on above:Order Comment: Specimen Type: BLOOD SPECIMENOrdering Facility: [facility] Address:[address] [place], [place] [address]Performed By: #### 66974-9, 2276-4, 3016-3 ####[facility] LABCLIA [id number] [place] [address] [place] AMERICAFolate SerPl-mCncon 16-52-7610Ghotiz [Mass/Vol] ng/mLNormal>4.7COhioHealth Grant Medical Center on above:Order Comment: Specimen Type: BLOOD SPECIMENOrdering Facility: [facility] Address:[address] [place], [place] [address]Result Comment: A result of > 20 ng/mL is not necessarily indicative of a pathologic or treatable condition: it reflects a limitation of the test methodology. Assay reference range: 4.8 to 24.2 ng/mL. Suitable for detection of folate deficiency. Reference: Folate III (Folate III) [package insert V 1.0 Portuguese]. [facility], [place], [place]: February 2015.Performed By: #### 2132-9, 2284-8 ####[facility] LABCLIA [id number] [place] [address] [place] AMERICAIron and Iron binding capacity panelon 05-28-2024 Iron [Mass/Vol]68 ug/sDWfbvhb62-182KnykiecjzSouthwest General Health Center on above: Order Comment: Specimen Type: BLOOD SPECIMENOrdering Facility: [facility] Address:[address] [place], [place] [address]Performed By: #### 24561- 8, 2276-4, 3016-3 ####[facility] LABCLIA [id number] [place] [address] [place] AMERICAIron binding capacity [Mass/Vol]367 ug/mMXfnyom361-480SdssdezsvSouthwest General Health Center on above: Order Comment: Specimen Type: BLOOD SPECIMENOrdering Facility: [facility] Address:[address] [place], [place] [address]Performed By: #### 27825- 8, 6-4, 3016-3 ####[facility] LABCLIA [id number] [place] [address] [place] AMERICAIron/TIBC [Molar ratio]18.5 %Xbomxi86.0-57.0[facility] on above:Order Comment: Specimen Type: BLOOD SPECIMENOrdering Facility: [facility] Address:[address] [place], [place] [address]Performed By: #### 09001- 8, 6-4, 3016-3 ####[facility] LABCLIA [id number] [place] [address] [place] [facility] HOSPITALTS SerPl-aCncon 34-35-0447PUA Qn2.940 m[IU]/LNormal0.270-4.200[facility] on above:Order Comment: Specimen Type: BLOOD SPECIMENOrdering Facility: [facility] Address:[address] [place], [place] [address]Result Comment: If the patient is , TSH reference range varies by gestational period: First Trimester (weeks 9-12): 0.180-2.990 mIU/L Second Trimester: 0.110-3.980 mIU/L Third Trimester: 0.480-4.710 mIU/L Danny Varela et al. A Practical Approach for the Verifications and Determination of Site- and Trimester-Specific Reference Intervals for Thyroid Function tests in . Thyroid, 2019:29:3:412-420.Saeed E, et al. 2017 Guidelines of the [place] Thyroid Association for the Diagnosis and Management of Thyroid Disease during and the . Thyroid, 2017:27:3:315-389. Performed By: #### 05142-7, 4, 3015-3 ####[facility] LABCLIA [id number] [place] [id number] [place] STATES OF [facility] COMMUNITY HOSPITALVit B12 SerPl-mCncon 38-97-9060Dcwhsbbmv (Vitamin B12) [Mass/Vol]487 pg/rQUkpqrv106-3241FswbudnqsOhioHealth Grant Medical Center on above:Order Comment: Specimen Type: BLOOD SPECIMENOrdering Facility: [facility] Address:[address] [place], [place] [address]Performed By: #### 2132-9, 2284-8 ####[facility] LABCLIA [id number] [facility] [id number] [place] [address] [place] [facility] COMMUNITY HOSPITALBhCG Quanton 95-82-9261TTS.beta subunit Qn101 m[IU]/mLHigh1-3Fisher Grace Medical CenterComment on above:Result Comment: 'F NON < 1 - 3' ' 0.2 - 1 WEEK = 5 TO 50' ' 1 - 2 WEEKS = 50 - 500' ' 2 - 3 WEEKS = 100 - 5000' ' 3 - 4 WEEKS = 500 - 68037' ' 4 - 5 WEEKS = 1000 - 18708' ' 5 - 6 WEEKS = 79397 - 691216' ' 6 - 8 WEEKS = 76248 - 011061' ' 8 - 12 WEEKS = 16878 - 323394'Performed By: #### [id number] #### [facility] [address] [place], [place] [address]TTRQHA V LEIDEN MUTATIONon 21-11-7126JOP FACTOR V LEIDEN MUTATIONComment.[facility] HealthcareComment on above:Result: c.1601G>A (p.Wyf028Heg) - Not Detected This result is not associated with an increased risk for venous thromboembolism. See Additional Clinical Information and Comments. Additional Clinical Information: Venous thromboembolism is a multifactorial disease influenced by genetic, environmental, and circumstantial risk factors. The c.1601G>A (p. Lmh858Ryf) variant in the F5 gene, commonly referred [...] c.*97G>A variant and Factor V Leiden (PMID: 71704169). Additional risk factors include but are not [...] health care providers to discuss results at [phone] (4329). Test Details: Variant Analyzed: c.1601G>A (p. Mmx604Zuv), referred to as Factor V Leiden Methods/Limitations: [...] developed and its performance characteristics determined by [employer]. It has not been cleared or approved by the Food and Drug Administration. References: Jomar Tian, Loren BLANDON, Thiago R, Solo WW, Jose JH; ACMG Professional Practice and Guidelines Committee. Addendum: [place] [employer] consensus statement on factor V Leiden mutation testing. Nisha Med. 2020Jul 02. doi: 10.1038/v81431-896-84298-h. PMID: 75265902. Naina POWERS. Factor V Leiden Thrombophilia. 1998September 10 (Updated 2017May 03). In: Emeterio MP, Radha HH, Clayton RA, et al., editors. Cassie(R) (Internet). [place] ([place]): [facility], [place]; 9161-5380. Available from: https://www.ncbi.nlm.nih.gov/books/IMP9757/ Hudson Tian, Loren BLANDON, Trent X, Margarito B, Jo-Ann EB, Lena P, Rhiannon CS; ACMG Laboratory Contractor General Building Committee. Venous thromboembolism laboratory testing (factor V Leiden and factor II c.*97G>A), 2018 update: a technical standard of the [place] College of [employer]etics and Genomics (ACMG). Nisha Med. 2018 Mar;20(12):2788-9656. doi: 10.1038/g31189-969-0282-g. Epub 2017Feb 01. PMID: 71794828. [facility] REVIEWED BYComment.NOMS HealthcareComment on above:Technical Component performed at [facility] Professional Component performed by: [facility]awr HospitalNI Rosa Isela Lee, Ph.D., [facility] Director, Molecular Genetics [address] [facility] Performed at: - [facility] [address], [place], [place] [address] Business Coordinator: Kolton Storm [facility], Phone: [phone] [facility] 48-38-5916CQFMCntnqrpnc (HEMASA) SANNA RENDON ([id number]) 1985 F Date Time Provider Department 05/14/24 [...] for deficiency. 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 request any additional testing, we [...] Date Reviewed: 04/28/2024 Reviewed by: Katherine Negrete APRN.ART HISTORY INSTRUCTOR - Fully Assessed Reason for Visit: Patient [...] 08/01/2022 Encounter Status:Closed by RACHAEL JOHNSON on 05/14/24[facility] MISCELLANEOUS TESTon 63-23-6356XJHKHZGHBLNXU TESTCOMMENT.NOMS HealthcareComment on above:Test Ordered: [id number] , ID Ab Cytomegalovirus (CMV) Ab, IgG [...] - 1.1 Positive >1.1 Performed at: [address] [id number] Business Coordinator: Dusty Miles PhD, Phone: [phone] Performed at: [address] [id number] Business Coordinator: China Ching MD, Phone: [phone] , Infectious Disease Antibody Profile CLINISYNCNOMS HealthcareNo Panel Informationon 18-71-3003DDZURPNDYGHXG HealthcarePROTEIN C-FUNCTIONALon 85-51-9052ELPQLPT C-ZKAFOFOCPG580 %73 - 180 % NOMS HealthcareComment on above:Performed at: [address] [id number] Business Coordinator: China Ching MD, Phone: [phone] PROTEIN S-ANTIGENon 87-80-5340PZLJGJA S, JOLU948 %61 - 136 %[facility] PROTEIN S, TOTAL96 %60 - 150 %NOMS HealthcareComment on above:This test was developed and its performance characteristics determined by [facility]. It has not been cleared or approved by the Food and Drug Administration. [facility] ANTITHROMBIN ACTIVITYon 76-50-4879Kitcjbfowuucvt and review of laboratory resultsAbnormalSac-Osage Hospital ANTITHROMBIN SQDEPXME993 %Xypheivu29 - 135 % NOMS HealthcareComment on above:An elevated antithrombin activity is of no known clinical significance. Direct Xa inhibitor anticoagulants such as rivaroxaban, apixaban and edoxaban will lead to spuriously elevated antithrombin activity levels possibly masking a deficiency. Performed at: [address] [id number] Business Coordinator: China Ching MD, Phone: [phone] ALL IMMUNOGLOBULIN Koffi 75-85-4645JGA IMMUNOGLOBULIN G, QN913 mg/dL586 - 1602 mg/dLNOAL HealthcareComment on above:Performed at: [address] [id number] Business Coordinator: Dusty Miles PhD, Phone: [phone] ALL IMMUNOGLOBULIN Mon 91-35-2844IYY IMMUNOGLOBULIN M, Q177 mg/dL26 - 217 mg/dL NOM HealthcareComment on above:Performed at: [address] [id number] Business Coordinator: Dusty Miles PhD, Phone: [phone] [facility] HOMOCYSTEINEon 02-74-1530XBNLXJPS(E)INE5.8 umol/L0.0 - 14.5 umol/LNOMS HealthcareNo Panel Informationon 25-22-6440FQPEEAZWLFBBC HealthcareALL CBC WITH AUTO DIFFon 86-65-1615YPMFIVMPP ABSOLUTE EJAT6SJGS HealthcareBasophils/100 WBC (Bld)0.2 %0.2 - 2.0 %NOMS HealthcareEosinophils/100 WBC (Bld)0.7 %Low0.9 - 7.0 % NOMS HealthcareErythrocyte distribution width (RBC) [Ratio]13 %11.0 - 15.0 %NOMS HealthcareHematocrit (Bld) [Volume fraction]35.6 %Low36.0 - 48.0 %[facility] HospitalHemoglobin (Bld) [Mass/Vol]12.3 g/dL12.0 - 16.0 g/dLCedar County Memorial Hospital IMMATURE GRANULOCYTES ABS AUTO0.04HighNODeaconess Incarnate Word Health SystemImmature granulocytes/100 WBC (Bld)0.4 %0.0 - 0.5 %[facility] HospitalInterpretation and review of laboratory resultsAbnormalNOAL HealthcareLYMPHOCYTES ABSOLUTE AUTO2.5NOMS [facility] Lymphocytes/100 WBC (Bld)26.1 %20.5 - 60.0 %[facility] Psychiatric HospitalH (RBC) [Entitic mass]31 pg26.7 - 34.0 pgNOCrossroads Regional Medical CenterHC (RBC) [Mass/Vol]34.6 g/dL29.9 - 35.2 g/dLCedar County Memorial HospitalMCV (RBC) [Entitic vol]89.7 fL81.0 - 99.0 fLCedar County Memorial Hospital MONOCYTES ABSOLUTE AUTO0.6NOMS HealthcareMonocytes/100 WBC (Bld)6 %1.7 - 12.0 % [facility] HospitalNEUTROPHILS ABSOLUTE AUTO6.3NOMS HealthcareNeutrophils/100 WBC (Bld)66.6 %43.0 - 75.0 %[facility] Memorial HospitalPlatelet mean volume (Bld) [Entitic vol] 9.9 fL9.5 - 13.5 fLNOMS [facility]-Titus Medical CenterTBH EO #0.1NOMS [facility]itus Medical CenterTB XKK552YBVR [facility] Medical CenterTB RBC3.97LowNOMS [facility]itus Medical CenterTB WBC9.4NOMS [facility] Medical CenterCLINISYNCNNortheast Regional Medical CenterCC APTTon 96-45-1836pCLX Coag (Bld) [Time]28.5 [facility] Science CenterLon 05-10-2024L Specimen: [id number] Received: 05/12/24-120 Status: BALDOMERO Andrade Num: [id number] Spec Type: Surgical Subm Dr: Wilton Herrmann Tissues: A Placenta - Other than 3rd Trimester (14 WK PLACENTA) Procedures: HE/3, Gross/Micro L4 Age/ Patient Sex Location Account Attending Physician Sanna Rendon 38/F LABELL [id number] Wilton Herrmann SPEC NUM: [id number] RECD: 05/12/24-1209 STATUS: BALDOMERO ANDRADE NUM: [id number] AMARILYS: 05/10/24- SUBM DR: Wilton Herrmann ENTERED: 05/12/24-1215 [facility] DR: Yao Pickett SPEC TYPE: Surgical DEPT: [facility] ENTERED BY: [id number] RECV BY: [id number] ORDERED: HE/3, Gross/Micro L4 ORDERED: HE/3, Gross/Micro [...] [id number] Received: 05/12/24 Status: BALDOMERO Andrade Num: [id number] Spec Type: Surgical Subm Dr: Wilton Herrmann Tissues: A Placenta - Other than 3rd Trimester (14 WK PLACENTA) Procedures: DEION/Ramone, Gross/Micro L4 Patient: [place],Katie [id number] (Continued) Specimen: [id number] Received: 05/12/24 (Continued) Gross Description (Continued) Signed (signature on file) Vivi Hill MD 05/13/24 1605 Specimen: [id number] Received: 05/12/24 Status: JUSTINEBrittany Andrade Num: [id number] Spec Type: Surgical Subm Dr: Wilton Herrmann Tissues: A Placenta - Other than 3rd Trimester (14 WK PLACENTA) Procedures: /3, Gross/Micro L4 Patient: Sanna Rendon [id number] (Continued) Specimen: [id number] Received: 05/12/24 (Continued) Gross [...] and uniform. Cassettes: A1 Rolled membrane A2-A3 Box Spring Maker sections of placenta (3, ss, BS25-17 A) JosselynG . CPT Codes 67042 Specimen: [id number] Received: 05/12/24 Status: BALDOMERO Andrade Num: [id number] Spec Type: Surgical Subm Dr: Wilton Herrmann Tissues: A Placenta - Other than 3rd Trimester (14 WK PLACENTA) Procedures: DEION/Ramone, Gross/Micro L4 Patient: LizandroSanna [id number] (Continued) Signed (signature on file) Vivi Hill MD 05/13/[address] [place] [address] Physician GroupMHPT FIBRINOGENon 05-10-2024 OAWTBRHERA386 mg/dL200 - 400 mg/dLNODeaconess Incarnate Word Health SystemNo Panel Informationon 31-72-2255XJVORVVOTLIOL HealthcareSRMCOH PROTHROMBIN TIME INR W/O COUMon 77-09-6535IC Coag (PPP) [Time]10.3 sNSSM Health [facility] INR0.97[facility] Comment on above:DESIRED INR: 2.0-3.0 CONDITIONS NOT LISTED BELOW 2.5-3.5 FOR PROSTHETIC HEART VALVE REPLACEMENT 2.5-3.5 RECURRENT THROMBOSIS US PELVISon 43-66-3253[place]sy[place], [place] [address] Ultrasound Report Signed Patient: SANNA RENDON MR#: [id number] : 1985 Acct:[id number] Age/Sex: 38 / F ADM Date: Loc: [facility] 258-[address]: Wilton Herrmann D.O. Ordering Physician: Wilton Herrmann D.O. Date of Service: 05/10/24 Procedure(s): US pelvis Accession Number(s): [id number] cc: Wilton Herrmann D.O.; PENELOPE CASAS [place] [phone] Patient Name: SANNA RENDON MRN: TBH:[id number] date: 1985 Sex: F Assigned Patient Location: [facility] Current Patient Location: [facility] Accession/Order Number: [id number] Exam Date: 05/10/2024 14:36 Report Date: 05/10/2024 [...] M.D. Signed By: 05/10/241603 DD/ 01 TD/TT: Pipeline Engineer:ELVERadiology, Radiologist, - 05/10/2024 [place] [address] Ultrasound Report Signed Patient: SANNA RENDON MR#: [id number] : 1985 Acct:[id number] Age/Sex: 38 / F ADM Date: Loc: [facility] 258-[address]: Wilton Herrmann D.O. Ordering Physician: Wilton Herrmann D.O. Date of Service: 05/10/24 Procedure(s): US pelvis Accession Number(s): [id number] cc: Wilton Herrmann D.O.; PENELOPE CASAS [place] [address] Patient Name: SANNA RENDON MRN: [id number]:[id number] date: 1985 Sex: F Assigned Patient Location: [facility] Current Patient Location: [facility] Accession/Order Number: [id number] Exam Date: 05/10/2024 14:36 Report Date: 05/10/2024 [...] M.D. Signed By: 05/10/241603 DD/ 01 TD/TT: Pipeline Engineer: SHILOH HealthcareRadiology Study observation (narrative)SHILOH HealthcareUS PELVIS Ordered By: Radiologist Radiology on 62-68-3754IZYB Healthcare Work Phone: US for pregnancyon 61-67-9382BxnKelly [place] [phone] Ultrasound Report Signed Patient: SANNA RENDON MR#: [id number] : 1985 Acct:[id number] Age/Sex: 38 / F ADM Date: Loc: [facility] 258-[address]: Wilton Herrmann D.O. Ordering Physician: Wilton Herrmann D.O. Date of Service: 05/10/24 Procedure(s): US OB limited Accession Number(s): [id number] cc: Wilton Herrmann D.O.; PENELOPE CASAS [address] [address] Patient Name: SANNA RENDON MRN: [id number]:[id number] date: 1985 Sex: F Assigned Patient Location: [facility] Current Patient Location: [place] Accession/Order Number: [id number] Exam Date: 05/10/2024 08:30 Report Date: 05/10/2024 [...] M.D. Signed By: 05/10/24928 DD/ 5 TD/TT: Pipeline Engineer:ELVERadiologPacheco morales, - 05/10/2024 [place] [address] Ultrasound Report Signed Patient: SANNA RENDON MR#: [id number] : 1985 Acct:[id number] Age/Sex: 38 / F ADM Date: Loc: [facility] 258-[address]: Wilton Herrmann D.O. Ordering Physician: Wilton Herrmann D.O. Date of Service: 05/10/24 Procedure(s): US OB limited Accession Number(s): [id number] cc: Wilton Herrmann D.O.; PENELOPE CASAS [place] [address] Patient Name: SANNA RENDON MRN: [facility]:[id number] date: 1985 Sex: F Assigned Patient Location: [facility] Current Patient Location: [place] Accession/Order Number: [id number] Exam Date: 05/10/2024 08:30 Report Date: 05/10/2024 [...] M.D. Signed By: 05/10/24928 DD/ 5 TD/TT: Pipeline Engineer: SHILOH HealthcareRadiology Study observation (narrative)NOMS HealthcareUS for pregnancyOrdered By: Radiologist Radiology on 93-85-6766RAFC Healthcare Work Phone: us OB TRANSVAGINALon 31-13-1108IF OB TRANSVAGINALTITLE OF EXAM: OB Ultrasound: REASON [...] period was 01/29/2024.Urinalysis macro (dipstick) panel (U)on 81-02-4578Rskzwdfpl, UANegativeNegative - 4(70) +++ mg/dLNOAL Healthcare Blood, UANegativeNegative - 50 Max/mcLNOAL HealthcareClarity, UAClearNOAL HealthcareColor, UAYellowNOAL HealthcareGlucose, UANegativeNegative - 2000(110) ++++ mg/dLNOAL HealthcareInterpretation and review of laboratory resultsNormal NOMS HealthcareKetones, UANegativeNegative - 160(16) ++++ mg/dLNOAL Healthcare Leukocytes, UANegativeNegative - 500+++ John/mcLNOAL HealthcareNitrite, UA NegativeNegative - PositiveNOMS HealthcarepH, UA65 - 9NOMS HealthcareProtein, UA NegativeNegative - 2000(20) ++++ mg/dLNOAL HealthcareSpec Grav, UA1.011 - 1.03 NOMS HealthcareUrobilinogen, UA0.20.2 - 12 mg/dLNOMS HealthcareNOMS Healthcare BOX TESTon 77-00-2236GXF TEST SENT OUTYNOMS GzztolfjpeMTV6XBTNPIEQE Healthcare IBR47206/13/23NOMS HealthcareUNITY BOX CLINISYNCNOAL HealthcareTBH DRUG SCREEN RAPID (URINE)on 86-61-9707IGHPMIFUUTK SCREEN URINENegativeNEGATIVENOMS HealthcareBARBITURATES SCREEN URINENegative NEGATIVENOMS HealthcareBENZODIAZEPINES [...] TRICYCLIC ANTIDEPRESSANT URINENegativeNEGATIVENOMS HealthcareCLINISYNCNOMS HealthcareUS OB TRANSVAGINALon 91-59-5466TpaArrey, [place] [address] Ultrasound Report Signed Patient: Sanna Rendon MR#: [id number] : 1985 Acct:[id number] Age/Sex: 38 / F ADM Date: 04/04/24 Loc: [facility] Attending Dr: Wilton Herrmann D.O. Ordering Physician: Wilton Herrmann D.O. Date of Service: 04/04/24 Procedure(s): US OB transvaginal Accession Number(s): [id number] cc: Wilton Herrmann D.O.; PENELOPE CASAS [place] [id number] Patient Name: SANNA RENDON MRN: [id number] date: 1985 Sex: F Assigned Patient Location: [facility] Current Patient Location: Accession/Order Number: [id number] Exam Date: 04/04/2024 09:43 Report Date: 04/05/2024 [...] Signed By: 04/05/24 0442 DD/ 0439 TD/TT: Pipeline Engineer:TBHRadiology, Radiologist, MD - 04/05/2024 [place] [address] Ultrasound Report Signed Patient: Sanna Rendon MR#: [id number] : 1985 Acct:[id number] Age/Sex: 38 / F ADM Date: 04/04/24 Loc: [facility] Attending Dr: Wilton Herrmann D.O. Ordering Physician: Wilton Herrmann D.O. Date of Service: 04/04/24 Procedure(s): US OB transvaginal Accession Number(s): [id number] cc: Wilton Herrmann D.O.; PENELOPE CASAS [place] [id number] Patient Name: SANNA RENDON MRN: [id number] date: 1985 Sex: F Assigned Patient Location: [facility] Current Patient Location: Accession/Order Number: [id number] Exam Date: 04/04/2024 09:43 Report Date: 04/05/2024 [...] M.D. Signed By: 04/05/242 DD/ 8 TD/TT: Pipeline Engineer: SHILOH HealthcareRadiology Study observation (narrative)[facility] HospitalUS OB TRANSVAGINALOrdered By: Radiologist Radiology on 30-29-0366[employer] Work Phone: HCG ( test) Ql (U)on 64-38-4047Lzuvlwblqescji and review of laboratory resultsAbnormalNOMS HealthcarePreg Test, UrPositive NegativeNODeaconess Incarnate Word Health SystemNOAL HealthcareUrinalysis macro (dipstick) panel (U)on 81-42-3491Jslveazis, UANegativeNegative - 4(70) +++ mg/dLNOMS HealthcareBlood, UANegativeNegative - 50 Max/mcLNOMS HealthcareClarity, UAClearNOMS Healthcare Color, UAYellowNOMS HealthcareGlucose, UANegativeNegative - 2000(110) ++++ mg/dL [facility] HealthcareInterpretation and review of laboratory resultsNormalNOAL HealthcareKetones, UANegativeNegative - 160(16) ++++ mg/dLNOMS Healthcare Leukocytes, UANegativeNegative - 500+++ John/mcLNOMS HealthcareNitrite, UA NegativeNegative - PositiveNOMS HealthcarepH, UA5.55 - 9NOMS HealthcareProtein, UANegativeNegative - 2000(20) ++++ mg/dLNOMS HealthcareSpec Grav, UA1.021 - 1.03 NOMS HealthcareUrobilinogen, UA1.00.2 - 12 mg/dLNOMS HealthcareNOMS HealthcareC Urineon 26-03-0776Lamfqqal identified Cx Nom (U)Microbiology PROCEDURE: Urine Culture [R1] SOURCE: U CleanCatch BODY SITE: COLLECTED DATE/TIME: 03/01/2024 10:30 EDT RECEIVED DATE/TIME: 03/01/2024 13:48 EDT START DATE/TIME: 03/01/2024 13:48 EDT FREE TEXT SOURCE: Wilton HERRMANN DO, DO, Corey R FINAL REPORTS Final Report [] Verified Date/Time: 03/03/2024 08:52 EST 2,000 cfu/ml Mixed skin contaminants Performing Locations R1: This test was performed at: [facility], [address] [place] [address], [facility] , , YrtknkUzzqawOhioHealth Marion General HospitalComment on above:Performed By: #### [id number] #### [facility] [address] [place] [address] 76222HxIA Quanton 76-77-7228IBX.beta subunit Qn747 m[IU]/mLHigh1-3 [facility] HospitalComment on above:Result Comment: 'F NON < 1 - 3' ' 0.2 - 1 WEEK = 5 TO 50' ' 1 - 2 WEEKS = 50 - 500' ' 2 - 3 WEEKS = 100 - 5000' ' 3 - 4 WEEKS = 500 - 63224' ' 4 - 5 WEEKS = 1000 - 09052' ' 5 - 6 WEEKS = 82733 - 075881' ' 6 - 8 WEEKS = 83316 - 183554' ' 8 - 12 WEEKS = 44676 - 534548'Performed By: #### [id number] #### [facility] [address] [place], [place] [address]NXMCZLAODKpmqkne By: SYSTEM SYSTEM on 47-73-9993VCR.beta subunit Qn747 m[IU]/mLHigh1 - 3 mIU/mLRemisol ChemComment on above:Result Comment: 'F NON < 1 - 3' ' 0.2 - 1 WEEK = 5 TO 50' ' 1 - 2 WEEKS = 50 - 500' ' 2 - 3 WEEKS = 100 - 5000' ' 3 - 4 WEEKS = 500 - 96370' ' 4 - 5 WEEKS = 1000 - 37943' ' 5 - 6 WEEKS = 62091 - 944032' ' 6 - 8 WEEKS = 22411 - 799088' ' 8 - 12 WEEKS = 64765 - 136928'BhCG Quanton 35-68-6066DRD.beta subunit Qn268 m[IU]/mLHigh1-3FTrinity Health System Twin City Medical CenterComment on above:Result Comment: 'F NON < 1 - 3' ' 0.2 - 1 WEEK = 5 TO 50' ' 1 - 2 WEEKS = 50 - 500' ' 2 - 3 WEEKS = 100 - 5000' ' 3 - 4 WEEKS = 500 - 66696' ' 4 - 5 WEEKS = 1000 - 47095' ' 5 - 6 WEEKS = 15525 - 693554' ' 6 - 8 WEEKS = 55518 - 422683' ' 8 - 12 WEEKS = 10546 - 301560'Performed By: #### [id number] #### [facility] [address] [place], [place] [address]CcVY Quanton 47-78-6676HTF.beta subunit Qn123 m[IU]/mLHigh1-3 [facility] HospitalComment on above:Result Comment: 'F NON < 1 - 3' ' 0.2 - 1 WEEK = 5 TO 50' ' 1 - 2 WEEKS = 50 - 500' ' 2 - 3 WEEKS = 100 - 5000' ' 3 - 4 WEEKS = 500 - 20433' ' 4 - 5 WEEKS = 1000 - 66242' ' 5 - 6 WEEKS = 28170 - 560295' ' 6 - 8 WEEKS = 19433 - 831644' ' 8 - 12 WEEKS = 17405 - 331560'Performed By: #### [id number] #### [facility] [address] [place], [place] [address]YMVHZQGZEJvufiuo By: SYSTEM SYSTEM on 14-22-0662TZN.beta subunit Qn123 m[IU]/mLHigh1 - 3 mIU/mLRemisol ChemComment on above:Result Comment: 'F NON < 1 - 3' ' 0.2 - 1 WEEK = 5 TO 50' ' 1 - 2 WEEKS = 50 - 500' ' 2 - 3 WEEKS = 100 - 5000' ' 3 - 4 WEEKS = 500 - 75675' ' 4 - 5 WEEKS = 1000 - 55343' ' 5 - 6 WEEKS = 39925 - 774554' ' 6 - 8 WEEKS = 51133 - 090393' ' 8 - 12 WEEKS = 92894 - 198194'YyyZ7qbq 42-99-0873JpY4v (Bld) [Mass fraction]6.0 %High<=5.9[facility] HospitalComment on above:Performed By: #### [id number] #### [facility] [address] [place], [place] [address]SML Screen 4th Generation wRfxon 12-40-5823RPF 1+2 Ab+HIV1 p24 Ag IA QlNon-ReactiveInvalid Interpretation CodeNon ReactiveAvita Health System Bucyrus HospitalComment on above:Result Comment: HIV-1/HIV-2 antibodies and HIV-1 p24 antigen were NOT detected. There is no laboratory evidence of HIV infection. HIV Negative Performed at: [facility] [address] [place], [place] [id number] PhD Jd MontanoPerformed By: #### [id number] #### [facility] [address] [place], [place] [address]TkPM Quanton 93-37-4157LBW.beta subunit Qn52 m[IU]/mLHigh1-3 [facility] HospitalComment on above:Result Comment: 'F NON < 1 - 3' ' 0.2 - 1 WEEK = 5 TO 50' ' 1 - 2 WEEKS = 50 - 500' ' 2 - 3 WEEKS = 100 - 5000' ' 3 - 4 WEEKS = 500 - 59735' ' 4 - 5 WEEKS = 1000 - 94970' ' 5 - 6 WEEKS = 97836 - 955818' ' 6 - 8 WEEKS = 93895 - 612555' ' 8 - 12 WEEKS = 50004 - 040354'Performed By: #### [id number] #### [facility] [address] [place], [place] [address]FVGDHLUIYRbmxzim By: SYSTEM SYSTEM on 15-01-0012Slnuhmtfcmw [Mass/Vol]225 mg/gNVgci234 - 200 mg/dLRemisol ChemCholesterol in HDL [Mass/Vol] [...] 3 - 4 WEEKS = 500 - 45446' ' 4 - 5 WEEKS = 1000 - 80458' ' 5 - 6 WEEKS = 18346 - 718842' ' 6 - 8 WEEKS = 34688 - 896200' ' 8 - 12 WEEKS = 04861 - 861665'Triglyceride [Mass/Vol]212 mg/dLHigh <=149mg/dLRemisol ChemTSH Qn5.68 m[IU]/LHigh0.34 - 5.60 mcIU/mLRemisol Chem CHEMISTRYOrdered By: Chelsey Price on 69-02-8460AaO2h (Bld) [Mass fraction]5.9 %Normal<=5.9%[facility] NrekKuamCVSwzM0xhx 28-81-8060UxU7v (Bld) [Mass fraction]5.9 % Normal<=5.9[facility] HospitalComment on above:Performed By: #### [id number] #### [facility] [address] [place], [place] [address]Dwtym Panelon 54-83-6123Nlxofqvjrxc [Mass/Vol]225 mg/dLHigh 120-200[facility] HospitalComment on above:Performed By: #### [id number] #### [facility] [address] [place], [place] [address]Oonwpgwwtin in HDL [Mass/Vol]40 mg/dLInvalid Interpretation CodeAvita Health System Bucyrus HospitalComment on above:Result Comment: '>= 60 LOW RISK' '<= 40 HIGH RISK'Performed By: #### [id number] #### [facility] [address] [place], [place] [address]Tooixmwnwtz in LDL [Mass/Vol]171 mg/dLHigh<=129[facility] HospitalComment on above:Performed By: #### [id number] #### [facility] [address] [place], [place] [address]Zwjwfhxqozq in VLDL [Mass/Vol]42 mg/dLHigh7-40[facility] HospitalComment on above:Performed By: #### [id number] #### [facility] [address] [place], [place] [address]Nxsujwqkmlai [Mass/Vol]212 mg/dLHigh<=149[facility] HospitalComment on above:Performed By: #### [id number] #### [facility] [address] [place], [place] [address]LLPst 66-94-8927UQW Qn5.68 m[IU]/LHigh0.34-5.60[facility] HospitalComment on above:Performed By: #### [id number] #### [facility] [address] [place], [place] [address]Xtzthjzgtt Visit Summaryon 93-13-2190Cenuknxlbh Visit Summary Ambulatory Visit Summary SANNA RENDON [...] EST With: Penelope CASAS DO, FAAFP Where: [facility] [address], [facility] [address]- You Need to Schedule the Following Appointments Follow Up with Penelope CASAS DO, FAAFP, FAM, PED When: In 3 months Where: [address], [facility] [place] [address]- You Need to Complete the Following HgbA1c, [...] infection Vaginal marlee (more content not included)...[facility] Family Medicine Office/Clinic Noteon 99-88-0034Djgnte Medicine Office/Clinic NoteFaboston state hospital Medicine Office/Clinic Note Chief Complaint [...] 40 mg subcu, continue to follow-up with cashier manager 5. Gestational diabetes (O24.419: Gestational diabetes mellitus in , unspecified control) Metformin 500 mg daily XR tabs 2/day per [employer] Ordered: HgbA1c HgbA1c HgbA1c HgbA1c 6. Well [...] FAAFP, CHRIS, PED In 3 months [address] [facility], [facility] [address]- Additional Instructions: Patient Education Acute Bronchitis, Adult Problem List/Past Medical History Ongoing Acute (more content not included)...[facility] HospitalComment on above:Result Comment: Electronically Signed By: [...] Community acquired pneumonia Refills: 5 Pickup at [facility] 1985 New azithromycin (azithromycin 250 mg Tab 5-day Dose Pack (Z-Jonyn)) 1 Packets By Mouth As Directed Community acquired pneumonia Duration: 5 Days as directed on package labeling Pickup at [facility] 1985 Unchanged enoxaparin (Lovenox 40 [...] physician if questions or concerns Pharmacy Information [facility] 1986: [address] [facility] [place] [id number] [phone] Allergies Milk Products (Illness) ciprofloxacin (Numbness and [...] you for choosing us for your care. [facility] Medicine Office/Clinic Noteon 89-88-8833Rnpqah Medicine Office/Clinic NoteFaboston state hospital Medicine Office/Clinic Note Chief Complaint [...] puff(s), Inhalation, q6hr, 1 EA, Refill(s) 5, [facility] 1985, 168, cm, 02/01/2414:43:00 EDT, Height/Length Dosing, 101.1, kg, 02/02/24 14:43:00 EDT, Weight Dosing azithromycin, = 1 packet(s), Oral, As Directed, as directed on package labeling, X 5 day(s), # 6 tab(s), Refills(s) 0, Pharmacy: [facility] 1985, 168, cm, 02/02/24 14:43:00 [...] Bernstein MD, FAM, MED Only if needed [address] [place] [phone] Additional Instructions: Problem List/Past Medical History Ongoing [...] D, 2000 [employer] (more content not included)...[facility] HospitalComment on above:Result Comment: Electronically Signed By: Anni Bernstein MD\.br\Date and Time Signed: 02/01/2415:03 EDTMRI Brain w/o Contraston 37-08-6340SQH Brain w/o ContrastExam Date/Time: 12/06/2023 14:48 EDT [...] Barker MD Transcribed by: LINDY Technologist: [facility] Medical CenterCortisolon 26-82-3820Sqqzszga [Mass/Vol]12.5 microgram/dLInvalid Interpretation Code 6.2-19.4FTrinity Health System Twin City Medical CenterComment on above:Result Comment: Please Note: The reference interval and flagging for this test is for an AM collection. If this is a PM collection please use: Cortisol PM: 2.3-11.9 Performed at: [facility] [id number] PhD Jd Garciaformed By: #### [id number] #### [facility] [address] [place], [place] [address]G7 Freeon 30-07-5084Ihhl T3 [Mass/Vol]2.5 pg/mLInvalid Interpretation Code2.0-4.4FTrinity Health System Twin City Medical CenterComment on above:Result Comment: Performed at: [facility] [id number] PhD Jd Garciaformed By: #### [id number] #### [facility] [address] [place], [place] [address]Cezxgpyaj 19-36-8067Bnfdkfb [Catalytic activity/Vol]38 U/L Ouubiu37-237KbxfddAvita Health System Bucyrus HospitalComment on above:Performed By: #### [id number] #### [facility] [address] [place], [place] [address]EBXHFNFDSCrkhsdt By: SYSTEM SYSTEM on 88-28-7406Yrlvzlu [Catalytic activity/Vol]38 U/KDopvok79 - 157 unit/LRemisol ChemCobalamin (Vitamin B12) [Mass/Vol]328 pg/zHRfchmh08 - 1500 pg/mLRemisol ChemCRP [Mass/Vol] 0.2 mg/dLNormal<=1.9mg/dLRemisol ChemFree T4 [Mass/Vol]0.58 ng/dLNormal0.58 - 1.64 ng/dLRemisol ChemTSH Qn4.97 m[IU]/LNormal0.34 - 5.60 mcIU/mLRemisol ChemCRP on 41-10-9927IQX [Mass/Vol]0.2 mg/dLNormal<=1.9[facility] Comment on above:Performed By: #### [id number] #### [facility] [address] [place] [address]Ydqf T4on 12-28-8340Ojnh T4 [Mass/Vol]0.58 ng/dLNormal0.58-1.64 [facility] HospitalComment on above:Performed By: #### [id number] #### [facility] [address] [place], [place] [address]ZFOAZBWJAVAaabvkl By: Isha Zheng on 92-05-0178DQQ (Bld) [Velocity]18 mm/hNormal0 - 34 mm/FT HemeAutoSSSed Rate Automatedon 37-52-3026IAA (Bld) [Velocity]18 mm/hNormal0-34[facility] Comment on above:Performed By: #### [id number] #### [facility] [address] [place], [place] [address]JOUra 57-27-1379ZOC Qn4.97 m[IU]/LNormal0.34-5.60[facility] HospitalComment on above:Performed By: #### [id number] #### [facility] [address] [place], [place] [address]Elr B12on 52-90-3885Iervlrswq (Vitamin B12) [Mass/Vol]328 pg/mL Syipkt68-3206WfwttgAvita Health System Bucyrus HospitalComment on above:Performed By: #### [id number] #### [facility] [address] [place], [place] [address]Igsluz Medicine Office/Clinic Noteon 23-87-9621Fnfanr Medicine Office/Clinic NoteFaboston state hospital Medicine Office/Clinic Note Chief Complaint [...] Iron deficiency) Mild, as reported by her cashier manager, labs from 2022 appear normal 6. Pre-diabetes (R73.03: Prediabetes) Last A1c Continue metformin Nutrition: - Maintain optimal weight - Calorie restriction - Plant-based diet; high polyunsatur (more content not included)...[facility] HospitalComment on above:Result Comment: Electronically Signed By: Jayant YEBOAH, Monica Varela\.br\Date and Time Signed: 11/09/23 15:56 EDTPhysician Referralon 58-51-6846Hatksmzyo Referral [id number]#1.00TIFFOhioHealth Marion General HospitalAmbulatory Visit Summaryon 46-63-8172Abykxchjxf Visit Summary SANNA RENDON :1985 Visit Date:10/23/2023 [...] (Vitamin D) fluticasone nasal (Flonase 0.05 mg/inh Edroy) metformin (MetFORMIN (Eqv-Glucophage XR) 500 mg oral [...] EDT With: Penelope CASAS DO, FAAFP [facility]/Clinic Noteon 21-38-7172[facility] Medicine Office/Clinic NoteChief Complaint pt here for [...] Mouth: mucous membranes pink, moist and intact. [place] posterior oropharynx, no palatal inflammation,uvula midline, no [...] 106.2, kg, 10/23/23 16:55:00 EDT, Weight Dosing [facility] External Ambulatory Referral 2. Nasal polyps (J33.9: Nasal polyp, unspecified) pt reported - moved before previous ENT could perform surgery - submitted new referral at this time Ordered: [facility] External Ambulatory Referral 3. Deviated septum (J34.2: Deviated nasal septum) pt reported - moved before previous ENT could perform surgery - see #2 Ordered: [facility] External Ambulatory Referral 4. BMI 37.0-37.9, adult [...] 5. Obesity ( (more content not included)...[facility] Comment on above:Result Comment: Electronically Signed By: Shirlene YEBOAH, Lourdes Baltazar\.br\Date and Time Signed: 10/23/23 17:13 EDTPatient Educationon 80-30-9743Bpfqyda EducationENT Deviated Septum The septum is the [...] specializes in ear, nose, and throat disorders (recovery room rn, or ENT) for more tests and treatment. [...] Follow these instructions at home: ? Take buup-dzc-nstilwb and prescription medicines only as told by [...] specializes in ear, nose, and throat disorders (recovery room rn, or ENT) for more tests and treatment. This information is not intended to replace advice given to you by your health care provider. Make sure you discuss any questions you have with your health care provider. Document Revised: 12/12/2021 Document Reviewed: 12/12/2021 [employer] Patient Education ? 2022 [employer]. Nasal Polyps Nasal polyps are growths that form in the nose. Inflammation in the nose or sinus openings can leadto changes in the tissue (mucosa) that lines these areas. Long-term inflammation causes the mucosa to grow into a polyp filled with watery mucus. Nasal polyps look like moist, ochoa grapes in the nose. Nasal polyps are not cancer (more content not included)...NormalFisher Grace Medical CenterCT Abdomen/Pelvis w/o Contraston 36-05-4038KV Abdomen/Pelvis w/o Contrast Exam Date/Time: 09/28/2023 19:58 [...] Given? No Oral contrast amount in ml's: 0NormBellevue HospitalB hCG Qualon 92-45-1304Rtwl HCG ( test) QlNegativeOhioHealth Marion General Hospital Comment on above:Performed By: #### [id number] #### [facility] [address] [place], [place] [address]QKJmg 14-69-7877Jypty gap [Moles/Vol]13 mmol/LNormal6-16[facility] HospitalComment on above:Performed By: #### [id number] #### [facility] [address] [place], [place] [address]Bomuvja [Mass/Vol]9.9 mg/dLNormal8.9-11.1FTrinity Health System Twin City Medical CenterComment on above:Performed By: #### [id number] #### [facility] [address] [place], [place] [address]Rnqeuinf [Moles/Vol]101 mmol/UEwbhmx838-942DyigsyAvita Health System Bucyrus HospitalComment on above:Performed By: #### [id number] #### [facility] [address] [place], [place] [address]PO5 [Moles/Vol]25 mmol/EOidwwc99-14MlwvajAvita Health System Bucyrus Hospital Comment on above:Performed By: #### [id number] #### [facility] [address] [place], [place] [address]Ruzwwtrhqa [Mass/Vol]0.9 mg/dLNormal0.5-1.3FTrinity Health System Twin City Medical CenterComment on above:Performed By: #### [id number] #### [facility] [address] [place], [place] [address]Idjquii [Mass/Vol]94 mg/aWZylfos39-996MqlqbmAvita Health System Bucyrus HospitalComment on above:Performed By: #### [id number] #### [facility] [address] [place], [place] [address]Nwsbgdffm [Moles/Vol]3.6 mmol/LNormal3.5-5.3FTrinity Health System Twin City Medical CenterComment on above:Performed By: #### [id number] #### [facility] [address] [place], [place] [address]Cluudu [Moles/Vol]135 mmol/VTprfuy266-974HdykntAvita Health System Bucyrus HospitalComment on above:Performed By: #### [id number] #### [facility] [address] [place], [place] [address]Jjvi nitrogen [Mass/Vol]8 mg/dLNormal5-21[facility] HospitalComment on above:Performed By: #### [id number] #### [facility] [address] [place] [address]Vcty nitrogen/Creatinine [Mass ratio]9 No RdxctAxg35-98PrqzhcAvita Health System Bucyrus HospitalComment on above:Performed By: #### [id number] #### [facility] [address] [place] [address]SHZ w/ Auto Diffon 61-32-0334Eadimosjv/100 WBC (Bld)0.7 %Normal 0.0-2.0[facility] HospitalComment on above:Performed By: #### [id number] #### [facility] [address] [place] [address]Wsqtdiwwe/Leukocytes Auto (Bld) [Pure # fraction]0.1 E9/LNormal 0.0-0.2FTrinity Health System Twin City Medical CenterComment on above:Performed By: #### [id number] #### [facility] [address] [place] [address]Vhkjewcxikh (Bld) [#/Vol]0.0 E9/LNormal0.0-0.5FTrinity Health System Twin City Medical CenterComment on above:Performed By: #### [id number] #### [facility] [address] [place] [address]Jexgcjeqsih/100 WBC (Bld)0.5 %Normal0.0-8.0[facility] HospitalComment on above:Performed By: #### [id number] #### [facility] [address] [place] [address] 12266Qtjisugvlms distribution width (RBC) [Ratio]14.3 %High10.9-14.2 [facility] HospitalComment on above:Performed By: #### [id number] #### [facility] [address] [place] [address]Xeuqsjrndz (Bld) [Volume fraction]39.5 %Fkfrud13.0-46.0[facility] HospitalComment on above:Performed By: #### [id number] #### [facility] [address] [place] [address]Ypmskwamve (Bld) [Mass/Vol]13.2 g/tGNpbqxt21.0-16.0[facility] HospitalComment on above:Performed By: #### [id number] #### [facility] [address] [place] [address]79[address]Sytniuocdvt (Bld) [#/Vol]3.5 E9/LNormal1.0-4.0[facility] HospitalComment on above:Performed By: #### [id number] #### [facility] [address] [place] [address]Gvivpvzatgf/100 WBC (Bld)35.6 %Xnulgj26.0-50.0[facility] HospitalComment on above:Performed By: #### [id number] #### [facility] [address] [place] [address]AFQ (RBC) [Entitic mass]29.3 oaWsyxrt09.0-34.0[facility] HospitalComment on above:Performed By: #### [id number] #### [facility] [address] [place] [address]VPRD (RBC) [Mass/Vol]33.5 g/iAEbtzad33.4-36.0[facility] HospitalComment on above:Performed By: #### [id number] #### [facility] [address] [place] [address]SLK (RBC) [Entitic vol]87.4 pOByogxh23.0-100.0[facility] HospitalComment on above:Performed By: #### [id number] #### [facility] [address] [place] [address]Wagrejlmb (Bld) [#/Vol]0.7 E9/LNormal0.2-1.0[facility] HospitalComment on above:Performed By: #### [id number] #### [facility] [address] [place] [address]Olmrcawjpud (Bld) [#/Vol]5.6 E9/LNormal2.0-7.5FTrinity Health System Twin City Medical CenterComment on above:Performed By: #### [id number] #### [facility] [address] [place] [address]Iurkapewbof/100 WBC (Bld)56.4 %Fqkhkc05.0-75.0[facility] HospitalComment on above:Performed By: #### [id number] #### [facility] [address] [place] [address]Blvsiomx mean volume (Bld) [Entitic vol]8.1 fLNormal6.4-10.8 [facility] HospitalComment on above:Performed By: #### [id number] #### [facility] [address] [place] [address]Tftjxoqzi (Bld) [#/Vol]360.0 E9/IYvvrcc325.0-500.0[facility] HospitalComment on above:Performed By: #### [id number] #### [facility] [address] [place] [address] 07283GRH (Bld) [#/Vol]4.5 E12/LNormal4.3-5.9[facility] HospitalComment on above:Performed By: #### [id number] #### [facility] [facility] [address] [place] [address] 85632CLF corrected for nucl RBC Auto (Bld) [#/Vol]9.9 E9/LNormal 4.0-11.0[facility] HospitalComment on above:Performed By: #### [id number] #### [facility] [address] [place] [address] 18103BXSJOSJBZVmmiunp By: SYSTEM SYSTEM on 58-33-0581Yqoduim [Mass/Vol]4.8 g/dLNormal3.3 - 5.0 gm/dLRemisol ChemAlbumin/Globulin [Mass ratio] 1.6 {ratio}Normal1.1 - 2.2Remisol ChemALP [Catalytic activity/Vol]66 [iU]/d Qbziov39 - 98 Int._Unit/LRemisol ChemALT No additional P-5'-P [Catalytic activity/Vol]16 [iU]/dNormal6 - 46 Int._Unit/LRemisol ChemAnion gap [Moles/Vol] 13 mmol/LNormal6 - 16 mEq/LRemisol ChemAST [Catalytic activity/Vol]15 [iU]/d Normal5 - 43 Int._Unit/LRemisol ChemBilirubin [Mass/Vol]0.3 mg/dLNormal0.0 - 1.1 mg/dLRemisol ChemBilirubin.direct [Mass/Vol]0.0 mg/dLNormal0.0 - 0.4 mg/dL Remisol ChemBilirubin.indirect [Mass or moles/Vol]0.3 mg/dLNormal0.1 - 0.9 mg/dL Remisol ChemCalcium [Mass/Vol]9.9 mg/dLNormal8.9 - 11.1 mg/dLRemisol Chem Chloride [Moles/Vol]101 mmol/MYzkxug655 - 111 mmol/LRemisol ChemCO2 [Moles/Vol] 25 mmol/THakwtm54 - 31 mmol/LRemisol ChemCreatinine [Mass/Vol]0.9 mg/dLNormal0.5 - 1.3 mg/dLRemisol ImmcoAEH35 mL/min/1.73 s1Ewjomw>=59mL/min/1.73 y7Xqkjqlw ChemGlobulin (S) [Mass/Vol]3.0 g/dLNormal1.4 - 4.0 gm/dLRemisol ChemGlucose [Mass/Vol]94 mg/kNUczhjz85 - 199 mg/dLRemisol ChemLipase [Catalytic activity/Vol]26 U/QOtscoq94 - 58 unit/LRemisol ChemPotassium [Moles/Vol]3.6 mmol/LNormal3.5 - 5.3 mmol/LRemisol ChemProtein [Mass/Vol]7.8 g/dLNormal6.0 - 7.8 gm/dLRemisol ChemSodium [Moles/Vol]135 mmol/WHoemzp041 - 145 mmol/LRemisol ChemUrea nitrogen [Mass/Vol]8 mg/dLNormal5 - 21 mg/dLRemisol ChemUrea nitrogen/Creatinine [Mass ratio]9 mg/mgLow10 - 20Remisol ChemConsent for Treatmenton 89-76-2175Sgdicfu for Treatment [id number]#1.00[facility] HospitalDischarge Instructionson 89-49-9784Yuzxeuhdh Instructions [id number]#[id number] [facility] Clinical Summaryon 97-10-2787PH Clinical Summary [place] [id number] ED Clinical Summary Person Information Name: SANNA RENDON [facility] Age: 37 Years : 1985 Sex: Female Language: Portuguese PCP: Penelope CASAS DO, FAAFP Marital Status: Phone: [phone] Visit Id: Visit Reason: Medical problem - [...] 21:22:15 09/28/2023 21:22:15 09/28/2023 21:22:15 ADDR[facility]: [facility] [phone] PHYS DOC NOTES: MEDICAL INFORMATION: Prescriptions Given: Medications to Continue with No Changes Other Medications enoxaparin (Lovenox 40 mg/0.4 mL Injection) 40 Milligram Subcutaneous every 24 hours. ergocalciferol (Vitamin D) 2,000 International unit By Mouth every week. fluticasone nasal (Flonase 0.05 mg/inh Edroy) 2 Sprays Nasal Inhalation every day. each nostril. metformin (MetFORMIN (Eqv-Glucophage XR) 500 mg oral tablet, extended release) 2 Tablets By Mouth every day. PATIENT EDUCATION INFORMATION: Instructions: Abdominal Pain, Adult Follow up: With: Address: When: Penelope CASAS [address] [place] [address], [place] [address] Business (1) In 3 days [...] agreement this plan is discharged stable condition.[facility] HospitalComment on above:Result Comment: Electronically Signed By: Sidney Daly DO\.cedrick\Date and Time Signed: 09/28/23 21:12 EDTED Note-PhysicianBasic Information Time Seen: Bijan Miramontes PA-C 09/28/2023 18:46 Chief Complaint Pt woke up around 7 am and started getting a pain on R side of belly button. States feels bloated and like her abdomen is coral.[facility] for possible [facility]icit[facility]. Nausea, denies vomiting. History [...] mL, IV, Once Home Flonase 0.05 mg/inh Edroy, 2 spray(s), Nasal, Daily Lovenox 40 mg/0.4 [...] Results No qual (more content not included)...[facility] HospitalComment on above:Result Comment: Electronically Signed By: Bijan Miramontes PA-C\.br\Date and Time Signed: 09/27/2417:50 EDT\.br\Electronically Co-Signed By: Benny Uribe DO\.br\Date and Time Co-Signed: 09/27/2418:44 EDTED Patient Education Noteon 50-06-9198HY Patient Education NoteGastroenterology Abdominal Pain, Adult Pain [...] these instructions at home: Medicines ? Take ruae-adz-fzvrfmv and prescription medicines only as told by [...] your condition for any changes. ? Take moue-yvq-eersekm and prescription medicines only as told by [...] Reviewed: 08/25/2019 Elsevier Patient Education ? 2022 WinBuyer.[facility] ED Patient Summaryon 17-23-2636RN Patient Summary [address] [address] Patient Discharge Instructions Person Information Name: SANNA RENDON Age: 37 Years Arrival Date: 09/28/2023 18:21:25 Discharge Diagnosis: 1:Abdominal pain Primary Care Physician: Penelope CASAS DO, FAAFP Provider Information Primary Provider: Benny Uribe DO [employer] Supervisor:Bijan Miramontes PA-C The exam and treatment you received in the Emergency Department were for an urgent problem and are not intended as complete care. It is important that you follow up with a doctor, nurse practitioner,or physician?s agency sales management assistant for ongoing care. If your symptoms [...] Follow-up Instructions: With: Address: When: Penelope CASAS [address] [place] [address], [place] [address] Business (1) In 3 days In the event that this physician does not participate in your insurance network, please consult with your insurance company to find a nearby participating provider. Patient Education Materials: Abdominal Pain, Adult A MESSAGE TO ALL PATIENTS REGARDING OPIOIDS PRESCRIPTION OPIOIDS: WHAT YOU NEED TO KNOW Prescription opioids can be used to help relieve rgjnngju-fq-ctutip pain and are often prescribed following a [...] your community drug take- back program or yourIgearmacy mail-back program, or flush them down the toilet, following guidance from the Food and Drug Administration (www.fda.gov/Drugs/ResourcesForYou). ? Visit www.cdc.gov/drugoverdose to learn about the risks of opioids abuse and overdose. ? If you believe you may be struggling with addiction, tell your health primary care physician and ask for guidance or call [facility]?S National Helpline at 8-592-864-[employer] Experience. v Source: Dep (more content not included)...[facility] Family Medicine Office/Clinic Noteon 84-47-5508Uekkgd Medicine Office/Clinic NoteChief Complaint abdominal pain HPI [...] agree with above documented HPI by medical administrative specialist. Portions of this record may have been created with voice recognition artificial intelligence software, specifically [employer] SPINE, PubGame and or [employer]ate [place]. Substitutions may have occurred due to the inherent limitations of voice recognition and artificial intelligence software. Patient is a 37-year-old female who presents to [facility], for right lower quadrant pain, that [...] Repeat BP 140/90. 37-year-old female [facility], for right lower quadrant abdominal pain, worseningsymptoms throughout the day, history of ovarian cyst, still has her appendix, no right upper quadrant pain. Patient worsening pain on exam, but no acute abdomen. Patient is willing to go to the emergency room after being discharged [facility], for further evaluation of right lower [...] We can o (more content not included)...[facility] HospitalComment on above:Result Comment: Electronically Signed By: CHARLA QUINTEROS, JANET\.br\Date and Time Signed: 09/28/23 18:28 EDTHEMATOLOGYOrdered By: SYSTEM SYSTEM on 55-21-3682Toxhxcvlr/100 WBC (Bld)0.7 %Normal0.0 - 2.0 %Remisol HemeBasophils/Leukocytes Auto (Bld) [Pure # fraction]0.1 E9/LNormal0.0 - 0.2 E9/LRemisol HemeEosinophils (Bld) [#/Vol]0.0 E9/LNormal0.0 - 0.5 E9/LRemisol HemeEosinophils/100 WBC (Bld)0.5 % Normal0.0 - 8.0 %Remisol HemeErythrocyte distribution width (RBC) [Ratio]14.3 % High10.9 - 14.2 %Remisol HemeHematocrit (Bld) [Volume fraction]39.5 %Owtwyl51.0 - 46.0 %Remisol HemeHemoglobin (Bld) [Mass/Vol]13.2 g/aDIepfcr57.0 - 16.0 gm/dL Remisol HemeLymphocytes (Bld) [#/Vol]3.5 E9/LNormal1.0 - 4.0 E9/LRemisol Heme Lymphocytes/100 WBC (Bld)35.6 %Cwclha87.0 - 50.0 %Remisol HemeMCH (RBC) [Entitic mass]29.3 euRbyygu27.0 - 34.0 pgRemisol HemeMCHC (RBC) [Mass/Vol]33.5 g/dL Wvixbp40.4 - 36.0 gm/dLRemisol HemeMCV (RBC) [Entitic vol]87.4 zMQnbbte78.0 - 100.0 fLRemisol HemeMonocytes (Bld) [#/Vol]0.7 E9/LNormal0.2 - 1.0 E9/LRemisol HemeMonocytes/100 WBC (Bld)6.8 %Normal4.0 - 14.0 %Remisol HemeNeutrophils (Bld) [#/Vol]5.6 E9/LNormal2.0 - 7.5 E9/LRemisol HemeNeutrophils/100 WBC (Bld)56.4 % Bebtyn62.0 - 75.0 %Remisol HemePlatelet mean volume (Bld) [Entitic vol]8.1 fL Normal6.4 - 10.8 fLRemisol HemePlatelets (Bld) [#/Vol]360.0 E9/CTcnvuk666.0 - 500.0 E9/LRemisol HemeRBC (Bld) [#/Vol]4.5 E12/LNormal4.3 - 5.9 E12/LRemisol HemeWBC corrected for nucl RBC Auto (Bld) [#/Vol]9.9 E9/LNormal4.0 - 11.0 E9/L Remisol HemeHep Func Panelon 26-00-9972Xeildpz [Mass/Vol]4.8 g/dLNormal3.3-5.0 [facility] HospitalComment on above:Performed By: #### [id number] #### [facility] [address] [place], [place] [address]Bnoqaki/Globulin (S) [Mass conc ratio]1.7Grdpzd2.1-2.2FTrinity Health System Twin City Medical CenterComment on above:Performed By: #### [id number] #### [facility] [address] [place] [address] 73284WRR [Catalytic activity/Vol]66 Int._Unit/APdulik10-62HpkzryAvita Health System [facility] HospitalComment on above:Performed By: #### [id number] #### [facility] [address] [place] [address] 860[address]QAR No additional P-5'-P [Catalytic activity/Vol]16 Int._Unit/L Normal6-46[facility] HospitalComment on above:Performed By: #### [id number] #### [facility] [address] [place] [address] 66502BWR [Catalytic activity/Vol]15 Int._Unit/LNormal5-43[facility] HospitalComment on above:Performed By: #### [id number] #### [facility] [address] [place] [address]Atzozoijs [Mass/Vol]0.3 mg/dLNormal0.0-1.1FTrinity Health System Twin City Medical CenterComment on above:Performed By: #### [id number] #### [facility] [address] [place] [address]Qlaozcrmj.direct [Mass/Vol]0.0 mg/dLNormal0.0-0.4FTrinity Health System Twin City Medical CenterComment on above:Performed By: #### [id number] #### [facility] [address] [place] [address] 88[address]Wgzliumtt.indirect [Mass or moles/Vol]0.3 mg/dLNormal0.1-0.9 [facility] HospitalComment on above:Performed By: #### [id number] #### [facility] [address] [place], [place] [address]Rmexyiog (S) [Mass/Vol]3.0 g/dLNormal1.4-4.0[facility] HospitalComment on above:Performed By: #### [id number] #### [facility] [address] [place], [place] [address]Xfomtqi [Mass/Vol]7.8 g/dLNormal6.0-7.8[facility] HospitalComment on above:Performed By: #### [id number] #### [facility] [address] [place], [place] [address]Aicahk Levelon 51-61-3038Bjwojb [Catalytic activity/Vol]26 U/L Ylncmh19-82KbmhfkAvita Health System [facility] HospitalComment on above:Performed By: #### [id number] #### [facility] [address] [place], [place] [address]Yevggav Educationon 53-62-9249Hsbcazd EducationCardiovascular Hypertension, Adult Hypertension is another name [...] Keep all follow-up visits. Medicines ? Take dafa-emi-rfajxfa and prescription medicines only as told by [...] ? For m (more content not included)...[facility] HospitalRAD - Preliminary Cat Scan Reporton [id number] - Preliminary Cat Scan Report [id number]#1.00TIFFNormalHocking Valley Community HospitalEROLOGYOrdered By: Amanda Siegel on 33-80-7076Rchg HCG ( test) QlNegative (09/28/23 6:59 PM)[facility] Man SeroUA with Cult Rflxon 56-61-1269Jbpethshx Ql (U)NegativeNormalNegativeAvita Health System [facility] HospitalComment on above:Performed By: #### [id number] ####[facility] Yyxvxwvsse[address] AveNornorth general hospitalk, VG[address]Qhkpehh (U)ClearNormalClearCone Health Annie Penn Hospitaler Grace Medical CenterComment on above:Performed By: #### [id number] ####[facility] Datptiuvhn216 [address] AveNorwalk, AQ[address]Wvflp (U)ColorlessAbnormalYellowAvita Health System Bu[facility] HospitalComment on above:Result Comment: Microscopic readings are only performed on those samples that meet specific criteria set forth by [facility].Performed By: #### [id number] ####[place] [address] AveNnew milford hospital, UQ[address]Ffolmeg Ql (U)Negative NormalNegativeAvita Health System [facility] HospitalComment on above:Performed By: #### [id number] ####[address] AveNorhartford hospital, [place] [address]Ywknzbznje Auto test strip (U) [Mass/Vol]NegativeNormalNegativeAvita Health System [facility] HospitalComment on above:Performed By: #### [id number] ####[place] [address] AveNorhartford hospital, CS[address]Omnybho Auto test strip Ql (U)NegativeNormalNegativeAvita Health System [facility] HospitalComment on above: Performed By: #### [id number] ####[place] [address] AveNorhartford hospital, RC[address]Cjhhjndbl esterase Auto test strip Ql (U)Negative NormalNegativeAvita Health System [facility] HospitalComment on above:Performed By: #### [id number] ####[facility] Dbhvscbqpd125 Roberts AveNorhartford hospital, [place] [address]Dzwazrl Auto test strip Ql (U)NegativeNormalNegativeAvita Health System [facility] HospitalComment on above:Performed By: #### [id number] ####[place] [address]Nor[address], KP[address]aF (U)7.0 [pH]Invalid Interpretation Code5.0-9.0[facility] HospitalComment on above:Performed By: #### [id number] ####[facility] [address]nzvwejdkv364 [facility], ZD[address]Fcbdryv Ql (U)NegativeNormalNegativeAvita Health System [facility] HospitalComment on above:Performed By: #### [id number] ####[facility] Pmlmehdtft100 [facility], DT[address]Ukqszasr gravity (U) [Rel density]1.003Invalid Interpretation Code1.005-1.030[facility] Comment on above:Performed By: #### [id number] ####[address], [place]Ggmhdlgawdpj (U) [Mass/Vol]Negative NormalNegativeAvita Health System [facility] HospitalComment on above:Performed By: #### [id number] ####[place] [address] [facility] [place] [address]Yinl of Urine collection methodClean [facility] Comment on above:Performed By: #### [id number] ####[place] [address] [facility] [id number] By: SYSTEM SYSTEM on 68-64-6609Nymzyobpr Ql (U)NegativeNormalNegativemg/dLPAWHUSKA HOSPITAL – [place] UA Auto SSClarity (U) Clear (09/28/23 7:35 PM)NormalClearFTMC UA Auto SSColor (U)Colorless 1 *ABN* (09/28/23 7:35 PM)Invalid Interpretation CodeYellowPAWHUSKA HOSPITAL – PAWHUSKA UA Auto SSComment on above:Interpretive Data: Microscopic readings are only performed on those samples that meet specific criteria set forth by [facility].Glucose Ql (U)NegativeNormalNegativemg/dLFT UA Auto SSHemoglobin Auto test strip (U) [Mass/Vol]NegativeNormalNegativemg/dLFT UA Auto SSKetones Auto test strip Ql (U)NegativeNormalNegativemg/dLFT UA Auto SSLeukocyte esterase Auto test strip Ql (U)NegativeNormalNegativeLeu/uLFT UA Auto SS Nitrite Auto test strip Ql (U)NegativeNormalNegativemg/dLFT UA Auto SSpH (U) 7.0 *NA* (09/28/23 7:35 PM)Invalid Interpretation Code5.0 - 9.0[facility] UA Auto SSProtein Ql (U)NegativeNormalNegativemg/dLPAWHUSKA HOSPITAL – PAWHUSKA UA Auto SSSpecific gravity (U) [Rel density] 1.003 *NA* (09/28/23 7:35 PM)Invalid Interpretation Code1.005 - 1.030[facility] UA Auto SS Urobilinogen (U) [Mass/Vol]NegativeNormalNegativemg/dLPAWHUSKA HOSPITAL – PAWHUSKA UA Auto SSURINALYSIS Ordered By: Bijan Miramontes on 93-55-1680YM Spec DescClean Catch (09/28/23 7:35 PM)NormalPAWHUSKA HOSPITAL – PAWHUSKA UA Auto SS egFRon 82-76-4277gLLQ30 mL/min/1.73 w9Repsbd>=59Fisher Grace Medical CenterComment on above:Order Comment: Order added by Discern Expert.Performed By: #### [id number] #### [facility] [address] [place], [place] [address]Rcurvxbjwk Visit Summaryon 61-86-8167Eomnayfhcb Visit Summary SANNA RENDON :1985 Visit Date:08/03/2023 [...] (Vitamin D) fluticasone nasal (Flonase 0.05 mg/inh Edroy) metformin (MetFORMIN (Eqv-Glucophage XR) 500 mg oral [...] PED When: In 4 months Where: [address] [place] [address]- You Need to Complete the Following HgbA1c, [...] Unchanged fluticasone nasal (Flonase 0.05 mg/ inh Edroy) 2 Sprays Nasal Inhalation Every day each [...] ? Walking a mile (more content not included)...[facility] Medicine Office/Clinic Noteon 54-65-7051Juntax Medicine Office/Clinic NoteChief Complaint Wants to discuss [...] comfortable with plan. PNMV Ordered: A1c POC 53821 Total time spent preparing the chart, conducting [...] FAAFP, FAM, PED In 4 months [address] [facility], [facility] [place] [address]- Additional Instructions: Patient Education Exercising to Lose Weight Problem Lis (more content not included)...[facility] Comment on above:Result Comment: Electronically Signed By: Penelope CASAS DO, FAAFP\.br\Date and Time Signed: 08/03/23 12:19 [facility]23 Patient EducationPhysical Medicine and Rehabilitation [...] health care provider or diet and nutritional health coach (dietitian). This may include: ? Eating fewer [...] exercise is e (more content not included)...[facility] HospitalPatient Educationon 35-13-2207Qyskjdt EducationEndocrinology Blood Glucose Monitoring, Adult Monitoring your [...] by following in (more content not included)...[facility] HospitalLab Reportson 87-29-3129Fiu Reports [id number]#1.00[facility] HospitalConsultation Noteon 16-05-0579Snjxhrxisvse Note [id number]#1.00[facility] HospitalAmbulatory Visit Summaryon 67-53-3659Pghsmcmwyx Visit Summary SANNA RENDON :1985 Visit Date:05/25/2023 [...] EDT With: Penelope CASAS DO, FAAFP [facility] Office/Clinic Noteon 65-53-3602Qzxnae Medicine Office/Clinic NoteChief Complaint States she is [...] Benadryl. 2. Dyshidrotic eczema (L30.1: Dyshidrosis [pompholyx]) Zpxr-opu-knsnllk hydrocortisone cream 1% or 2.5% as directed. [...] FAAFP, FAM, PED In 2 months [address] [facility], [place] [address]- Additional Instructions: Patient Education Eustachian Tube Dysfunction Dyshidrotic Eczema Allergies, Tadeo (more content not included)...[facility] Comment on above:Result Comment: Electronically Signed [...] ears completely after. General instructions ? Take tous-mqe-xgyaqqu and prescription medicines only as told by [...] cases are treated w (more content not included)...[facility] Urineon 87-36-7945Cblnmzzu identified Cx Nom (U) Microbiology PROCEDURE: Urine [...] This test was performed at: [facility], [address] [place] [address], [address]- , [place], RieqxuTjeylvThe Bellevue HospitalComment on above:Performed By: #### [id number] ####[address] [address]Lbvqiud for Treatmenton 70-78-3335Lvtjkzn for Treatment [id number] Marion General HospitalUrinalysison 78-43-6310Ouinziwu LM Ql (Urine sed)TRACENormalTraceAvita Health System [facility] HospitalComment on above:Performed By: #### [id number] ####[address] [address]Gueafxamc Ql (U) NegativeNormalNegativeAvita Health System [facility] HospitalComment on above:Performed By: #### [id number] ####[address] [address]Shrrljw (U)CLOUDYAbnormalClearFTrinity Health System Twin City Medical CenterComment on above:Performed By: #### [id number] ####[address] [address]Slgrh (U)YELLOWNormalYellowAvita Health System Bu[facility] HospitalComment on above:Performed By: #### [id number] ####[address] [address]Amzmgbuoik cells.squamous LM.HPF (Urine sed) [#/Area]/[HPF]Normal0-2FTrinity Health System Twin City Medical CenterComment on above:Performed By: #### [id number] ####[address] [address]Hnxrfzf Test strip (U) [Mass/Vol]NegativeNormal NegativeAvita Health System Bu[facility]rus HospitalComment on above:Performed By: #### [id number] ####[address] [address] Hemoglobin Ql (U)NegativermalNegWexner Medical CenterComment on above:Performed By: #### [id number] ####[address] [address]Vdyeceb (U) [Mass/Vol]NegativeNormalNegativeAvita Health System [facility] HospitalComment on above:Performed By: #### [id number] ####[address] [address] Farmers.plasma/Farmers.RBC (Bld) [Mass ratio]6-4Bzoxjp2-1Dqlfuu [facility] Medical CenterComment on above:Performed By: #### [id number] ####[address] [address]Nnmaixm Ql (U)NegativeNormal [facility] Medical CenterComment on above:Performed By: #### [id number] ####[address] [address]wH (U)6.0 [pH]Invalid Interpretation Code5.0-9.0[facility] HospitalComment on above:Performed By: #### [id number] ####[address] [address]Yvkszaw (U) [Mass/Vol]NegativeNormal NegativeAvita Health System Bucyrus HospitalComment on above:Performed By: #### [id number] ####[address] [address] Specific gravity (U) [Rel density]<=1.005Invalid Interpretation Code1.005-1.030 [facility] HospitalComment on above:Performed By: #### [id number] ####[address] [address]Wiaz of Urine collection methodClean CatchNormalAvita Health System Bucyrus HospitalComment on above:Performed By: #### [id number] ####[address], [place] [address]Muntilrvbbws Qn (U)0.2 {Nicole'U}/dLNormal0.0-1.0 [facility] HospitalComment on above:Performed By: #### [id number] ####[facility] [address] [place], [place] [address]WWJ Auto Ql (U)TRACEAbnormalNegativeAvita Health System Bucyrus HospitalComment on above: Performed By: #### [id number] ####[facility] [address]wip[address] [place], [place] [address]PPD LM.HPF (Urine sed) [#/Area]4-0Heplhm1-8Zylzgf [facility] Medical CenterComment on above:Performed By: #### [id number] ####[facility] [address] [place], [place] [address]Kxrwstmssq Visit Summaryon 56-51-3200Zyvfsxfkwb Visit Summary SANNA RENDON :1985 Visit Date:04/27/2023 [...] EST With: Penelope CASAS DO, FAAFP [facility]No[facility] CHEMISTRYOrdered By: SYSTEM SYSTEM on 21-37-7758OQI Qn4.04 m[IU]/LNormal0.34 - 5.60 mcIU/mLRemisol ChemBayridge Hospital Medicine Office/Clinic Noteon 44-42-0101Pkdmqq Medicine Office/Clinic NoteChief Complaint Since last Sunday has been having joint pain with burning sensation and has been having diarrheawith stomach pain. States her kids are sick. Also has been having burning in her nipples, she is . Wants her thyroid checked. History of Present Illness Children are sick at home and has been having diarrhea since Sunday before [place], nonbloody with some associated stomach pain. She has been having some burning in her nipples when she is breast-feeding and wants her thyroid checked. Muscle aches and pains like flu Still breast feeding. No loss of taste nor smell. [id number] while taking Glucophage XR 500 mg p.o. [...] Push fluids and Tylenol and or ibuprofen medn-rts-yjvhwod as directed. Patient does not appear ill [...] BMIand weight manag (more content not included)...[facility] HospitalComment on above: Result Comment: Electronically Signed By: PRAVEEN RESENDEZ FAAFP, Penelope Tony\.br\Date and Time Signed: 04/27/23 12:53 ESTPatient Educationon 60-43-7340Vchqzzt Education Endocrinology Diabetes Mellitus and Exercise Exercising [...] stroke). Where to find more information ? [place] [employer]: www.diabetes.org Summary ? Exercising regularly [...] provider. Document Revised: 01/12/2020 Document Reviewed: 01/12/2020 [employer] Patient Education ? 2022 [employer] Preventing Hypoglycemia Hypoglycemia occurs when the level of sugar (glucose) in the blood is too low. Hypoglycemia can happen in people who do or do not have diabetes (diabetes (more content not included)...NormalAvita Health System Bucyrus HospitalTSHon 40-11-7309WHV Qn 4.04 m[IU]/LNormal0.34-5.60[facility] Bucy[facility] HospitalComment on above:Performed By: #### [id number] ####[facility] [address] [place], [place] [address]Mrnnxknpra Visit Summaryon 78-52-8717Nfjtaqdmiu Visit Summary SANNA RENDON :1985 Visit Date:02/15/2023 [...] PED When: In 2 months Where: [address], [address] [place] [address]- You Need to Complete the Following HgbA1c, [...] miscarriage Suspected COVID-19 virus infection Vaginal tabitha [facility] Medicine Office/Clinic Noteon 60-76-6723Qbryub Medicine Office/Clinic NoteChief Complaint States since Sunday her right ear is draining and is a little painful 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 She is continuing 500 mg of [...] Information PRAVEEN Johnson (more content not included)...[facility] HospitalComment on above:Result Comment: Electronically Signed By: [...] cannot use soap and water, use hand [employer] rep. 2. Make sure your ears are clean [...] cannot use soap and water, use hand [employer] rep. Follow these instructions at home: ? Use [...] Reviewed: 02/11/2020 Elsevier Patient Education ? 2022 [employer] Infectious Disease Otitis Externa Otitis externa [...] you start to feel better. ? Take cukb-fjl-ntwchwb and prescription medicines only as told by your doctor. ? Avoid getting water in your ears as told by your doctor. You may be told to avoid swimming or water sports for a few days. ? Keep all follow-up visits. How is this prevented? ? Keep your ears dry. Use the corner o (more content not included)...Normal [facility] HospitalPatient Educationon 86-76-0863Djtxrsk Education Immunology Fatigue If you have fatigue, [...] these instructions at home: Medicines ? Take hmgr-hpl-xrhgrcr and prescription medicines only as told by [...] the National Suicide Prevention Lifeline at or 959. This is open 24 hours a day. ? Text the Crisis Text Line at 061174. Summary ? If you have fatigue, you [...] provider. Document Revised: 02/06/2022 Document Reviewed: 02/06/2022 [employer] Patient Education ? 2022 [employer] Urology Urodynamic Testing Urodynamic tests are [...] ? Leaking urine (inco (more content not included)...NormalAvita Health System Bucyrus HospitalCHEMISTRYOrdered By: SYSTEM SYSTEM on 18-22-1701Orim T4 [Mass/Vol]0.58 ng/dLNormal0.58 - 1.64 ng/dLFTMC RemisolTSH Qn3.35 m[IU]/LNormal0.34 - 5.60 mcIU/mLFTMC RemisolAlbumin [Mass/Vol]4.5 g/dLNormal3.3 - 5.0 gm/dLFTMC Remisol Albumin/Globulin [Mass ratio]1.4 {ratio}Normal1.1 - 2.2[facility] RemisolALP [Catalytic activity/Vol]62 [iU]/xMbktjw61 - 98 Int._Unit/LFTMC RemisolALT No additional P-5'-P [Catalytic activity/Vol]27 [iU]/dNormal6 - 46 Int._Unit/LFTMC RemisolAnion gap [Moles/Vol]13 mmol/LNormal6 - 16 mEq/LFTMC RemisolAST [Catalytic activity/Vol]21 [iU]/dNormal5 - 43 Int._Unit/LFTMC RemisolBilirubin [Mass/Vol]0.3 mg/dLNormal0.0 - 1.1 mg/dLFTMC RemisolCalcium [Mass/Vol]9.6 mg/dL Normal8.9 - 11.1 mg/dLFTMC RemisolChloride [Moles/Vol]104 mmol/UPgqxkz145 - 111 mmol/LFTMC RemisolCO2 [Moles/Vol]25 mmol/YLlejml15 - 31 mmol/LFTMC Remisol Cobalamin (Vitamin B12) [Mass/Vol]211 pg/jKXujeev32 - 1500 pg/mLFTMC Remisol Creatinine [Mass/Vol]0.9 mg/dLNormal0.5 - 1.3 mg/dLFTMC RemisolFerritin [Mass/Vol]38 ng/oIXxpjhz32 - 307 ng/mLFTMC RemisolFolate [Mass/Vol]13.5 ng/mL Normal>=6.7ng/mLFTMC RemisolGFR/1.73 sq M.predicted among non-blacks MDRD (S/P/Bld) [Vol rate/Area]85 mL/min/1.73 n9Qceoqg>=59mL/min/1.73 m2FT[facility] Chem S Globulin (S) [Mass/Vol]3.3 g/dLNormal1.4 - 4.0 gm/dLFTMC RemisolGlucose [Mass/Vol]93 mg/gIZcjwjy51 - 199 mg/dLFTMC RemisolIron [Mass/Vol]56 ug/dLNormal 35 - 153 mcg/dLFTMC RemisolIron binding capacity [Mass/Vol]395 ug/nRCcauil163 - 400 mcg/dLFTMC RemisolPotassium [Moles/Vol]3.7 mmol/LNormal3.5 - 5.3 mmol/LFTMC RemisolProtein [Mass/Vol]7.8 g/dLNormal6.0 - 7.8 gm/dLFTMC RemisolSodium [Moles/Vol]138 mmol/CXomuwr263 - 145 mmol/LFTMC RemisolTransferrin [Mass/Vol]282 mg/gSOpbzaq252 - 370 mg/dLFTMC RemisolUrea nitrogen [Mass/Vol]11 mg/dLNormal5 - 21 mg/dLFTMC RemisolUrea nitrogen/Creatinine [Mass ratio]12 mg/ieCpiowk53 - 20 [facility] RemisolHEMATOLOGYOrdered By: SYSTEM SYSTEM on 95-48-9808Rmlxvyymf/100 WBC (Bld)0.6 %Normal0.0 - 2.0 %[facility] HemeAutoSSBasophils/Leukocytes Auto (Bld) [Pure # fraction]0.0 E9/LNormal0.0 - 0.2 E9/LFTMC HemeAutoSSEosinophils/100 WBC (Bld) 1.1 %Normal0.0 - 8.0 %[facility] HemeAutoSSEosinophils/Leukocytes Auto (Bld) [Pure # fraction]0.1 E9/LNormal0.0 - 0.5 E9/LFTMC HemeAutoSSLymphocytes/100 WBC (Bld) 42.4 %Yeyxdm68.0 - 50.0 %[facility] HemeAutoSSLymphocytes/Leukocytes Auto (Bld) [Pure # fraction]3.4 E9/LNormal1.0 - 4.0 E9/LFTMC HemeAutoSSMonocytes/100 WBC (Bld)8.0 %Normal4.0 - 14.0 %[facility] HemeAutoSSMonocytes/Leukocytes Auto (Bld) [Pure # fraction]0.6 E9/LNormal0.2 - 1.0 E9/LFTMC HemeAutoSSNeutrophils/100 WBC (Bld) 47.9 %Dtjdts32.0 - 75.0 %[facility] HemeAutoSSNeutrophils/Leukocytes Auto (Bld) [Pure # fraction]3.8 E9/LNormal2.0 - 7.5 E9/LFTMC HemeAutoSSHEMATOLOGYOrdered By: Trena Castro on 44-02-1296Kuuhmxklspe distribution width (RBC) [Ratio]14.5 % High10.9 - 14.2 %[facility] HemeAutoSSHematocrit (Bld) [Volume fraction]37.4 %Normal 34.0 - 46.0 %[facility] HemeAutoSSHemoglobin (Bld) [Mass/Vol]13.1 g/qYFjrunc99.0 - 16.0 gm/dLFTMC HemeAutoSSMCH (RBC) [Entitic mass]30.6 fkHaabfp10.0 - 34.0 pgFTMC HemeAutoSSMCHC (RBC) [Mass/Vol]34.9 g/vDQsxone55.4 - 36.0 gm/dLFTMC HemeAutoSS MCV (RBC) [Entitic vol]87.7 gAUamrnn93.0 - 100.0 fLFTMC HemeAutoSSPlatelet mean volume (Bld) [Entitic vol]8.2 fLNormal6.4 - 10.8 fLFTMC HemeAutoSSPlatelets (Bld) [#/Vol]334.0 E9/DTzalna506.0 - 500.0 E9/LFTMC HemeAutoSSRBC (Bld) [#/Vol] 4.3 E12/LNormal4.3 - 5.9 E12/LFTMC HemeAutoSSWBC corrected for nucl RBC Auto (Bld) [#/Vol]7.9 E9/LNormal4.0 - 11.0 E9/LFTMC HemeAutoSSCHEMISTRYOrdered By: SYSTEM SYSTEM on 27-55-7211Vjvu T4 [Mass/Vol]0.58 ng/dLNormal0.58 - 1.64 ng/dL [facility] RemisolTSH Qn3.10 m[IU]/LNormal0.34 - 5.60 mcIU/mLFTMC RemisolCHEMISTRY Ordered By: Valeri German on 31-40-9754BlQ1v (Bld) [Mass fraction]5.9 %Normal <=5.9%[facility] ChemAutoSSCHEMISTRYOrdered By: SYSTEM SYSTEM on 28-33-2233Imxm T4 [Mass/Vol]0.71 ng/dLNormal0.58 - 1.64 ng/dLFTMC RemisolTSH Qn3.77 m[IU]/LNormal 0.34 - 5.60 mcIU/mLFTMC RemisolCBC AUTO DIFFon 63-55-7548LZEN #0.0 103/ulNormal 0.0-0.1The [facility]itan HospitalComment on above:Performed By: #### [id number] #### [facility] [address] [address] [address] Edward GillBasophils/100 WBC (Bld)0.4 %Normal0.2-2.0[facility] Comment on above:Performed By: #### [id number] #### [facility] [address] [address] [address] Edward Traore #0.1 103/ulNormal0.0-0.7The [facility] HospitalComment on above: Performed By: #### [id number] #### [facility] [address] [address] [address] Edward Calhounosinophils/100 WBC (Bld)1.3 %Normal0.9-7.0[facility] Comment on above:Performed By: #### [id number] #### [facility] [address] [address] [address] Edward Calhounrythrocyte distribution width (RBC) [Ratio]16.6 %Critically high 11.0-15.0The [facility] HospitalComment on above:Performed By: #### HIV12 #### [facility] [address] [address] [address] Edward GillHematocrit (Bld) [Volume fraction]30.2 %Critically low36.0-48.0 The [facility] HospitalComment on above:Performed By: #### HIV12 #### [facility] [address] [address] [address] Edward GillHemoglobin (Bld) [Mass/Vol]10.5 g/dLCritically low12.0-16.0The [facility] HospitalComment on above:Performed By: #### HIV12 #### [facility] [address] [place] [address] Dr. Edward Ray #0.04 10e3/ulCritically high0.00-0.03[facility] Comment on above:Performed By: #### HIV12 #### [facility] [address] [place] [address] Dr. Edward Ray %0.4 %Normal0.0-0.5The [facility] HospitalComment on above: Performed By: #### [id number] #### [facility] [address] [place] [address] Dr. Edward Velásquez #3.1 103/ulNormal1.2-3.8The [facility] HospitalComment on above:Performed By: #### [id number] #### [facility] [address] [place] [address] Dr. Edward Alvarezhocytes/100 WBC (Bld)34.2 %Xzcerl41.5-60.0[facility] HospitalComment on above:Performed By: #### [id number] #### [facility] [address] [place] [address] Dr. Edward SimmonsUAL DIFF REQNONormalThe [facility]itan HospitalComment on above: Performed By: #### [id number] #### [facility] [address] [place] [address] Dr. Edward June (RBC) [Entitic mass]30.3 gpNnacvg46.7-34.0The [facility] HospitalComment on above:Performed By: #### [id number] #### [facility] [address] [place] [address] Dr. Edward June (RBC) [Mass/Vol]34.8 g/gEShxymj03.9-35.2The [facility] HospitalComment on above:Performed By: #### [id number] #### [facility] [address] [place] [address] Dr. Edward Desai (RBC) [Entitic vol]87.0 sJRfratj43.0-99.0The [facility] HospitalComment on above:Performed By: #### HIV12 #### [facility] [address] [place] [address] Dr. Edward Rosas #0.7 103/ulNormal0.3-0.8The [facility] HospitalComment on above:Performed By: #### HIV12 #### [facility] [address] [place] [address] Dr. Edward Ignacioocytes/100 WBC (Bld)7.5 %Normal1.7-12.0[facility] Comment on above:Performed By: #### HIV12 #### [facility] [address] [place] [address] Dr. Edward Guevara #5.0 103/ulNormal1.4-6.5The [facility] HospitalComment on above:Performed By: #### HIV12 #### [facility] [address] [place] [address] Dr. Edward Moralesutrophils/100 WBC (Bld)56.2 %Dihsxq59.0-75.0The [facility] HospitalComment on above:Performed By: #### HIV12 #### [facility] [address] [place] [address] Dr. Edward Serranolet mean volume (Bld) [Entitic vol]9.8 fLNormal9.5-13.5The [facility] HospitalComment on above:Performed By: #### [id number] #### [facility] [address] [place] [address] Dr. Edward GillPLT238 103/lfRmfwzr165-161Fwm [facility] HospitalComment on above: Performed By: #### HIV12 #### [facility] [address] [place] [address] Dr. Edward GillRBC3.47 106/ulCritically low4.20-5.40The [facility] HospitalComment on above:Performed By: #### [id number] #### [facility] [address] [place] [address] Dr. Edward GillWBC9.0 103/ulNormal4.0-11.0The [facility] HospitalComment on above: Performed By: #### HIV12 #### [facility] [address] [place] [address] Dr. Edward GillFETAL SCREENon 42-85-2031DCLGU SCREENNegativeMetroHealth Cleveland Heights Medical CenterComment on above:Performed By: #### FETSCRN #### [facility] [address] [place] [address] Dr. Edward GillDIRECT COOMBSon 86-08-0623YPYBLN COOMBSNegParkwood HospitalComment on above:Performed By: #### DIRCMB #### [facility] [address] [place] [address] Dr. Edward GillPOINT OF CARE GLUCOSEon 88-71-2165Kondpiq [Mass/Vol]117 mg/dL Critically iamn21-915Qex [facility] HospitalComment on above:Performed By: #### POCGLUC ####[facility] [address] [place], [place] [address]Dr. Edward GillTYPE AND SCREENon 95-39-2210RXZH AND SCREENNegativeMetroHealth Cleveland Heights Medical CenterComment on above:Performed By: #### TNS #### [facility] [address] [place] [address] Dr. Edward GillCBC AUTO DIFFon 79-14-3653XWJJ #0.0 103/ulNormal0.0-0.1The [facility] HospitalComment on above:Performed By: #### [id number] #### [facility] [address] [place] [address] Dr. Edward GillBasophils/100 WBC (Bld)0.2 %Normal0.2-2.0[facility] Comment on above:Performed By: #### HIV12 #### [facility] [address] [place] [address] Dr. Edward Traore #0.0 103/ulNormal0.0-0.7The [facility] HospitalComment on above: Performed By: #### HIV12 #### [facility] [address] [place] [address] Dr. Edward Calhounosinophils/100 WBC (Bld)0.5 %Critically low0.9-7.0The [facility] HospitalComment on above:Performed By: #### HIV12 #### [facility] [address] [place] [address] Dr. Edward Calhounrythrocyte distribution width (RBC) [Ratio]16.1 %Critically high 11.0-15.0The [facility] HospitalComment on above:Performed By: #### HIV12 #### [facility] [address] [place] [address] Dr. Edward GillHematocrit (Bld) [Volume fraction]32.1 %Critically low36.0-48.0 The [facility] HospitalComment on above:Performed By: #### HIV12 #### [facility] [address] [place] [address] Dr. Edward GillHemoglobin (Bld) [Mass/Vol]11.7 g/dLCritically low12.0-16.0The [facility] HospitalComment on above:Performed By: #### HIV12 #### [facility] [address] [place] [address] Dr. Edward Ray #0.04 10e3/ulCritically high0.00-0.03[facility] Comment on above:Performed By: #### HIV12 #### [facility] [address] [place] [address] Dr. Edward Ray %0.5 %Normal0.0-0.5The [facility] HospitalComment on above: Performed By: #### HIV12 #### [facility] [address] [place] [address] Dr. Edward Velásquez #2.4 103/ulNormal1.2-3.8The [facility] HospitalComment on above:Performed By: #### HIV12 #### [facility] [address] [place] [address] Dr. Edward Ronmphocytes/100 WBC (Bld)27.2 %Vrmoqd95.5-60.0The [facility] HospitalComment on above:Performed By: #### HIV12 #### [facility] [address] [place] [address] Dr. Edward SimmonsUAL DIFF REQNONormalThe [facility] HospitalComment on above: Performed By: #### HIV12 #### [facility] [address] [place] [address] Dr. Edward De Leon (RBC) [Entitic mass]30.0 wyTlxzio54.7-34.0The [facility] HospitalComment on above:Performed By: #### HIV12 #### [facility] [address] [place] [address] Dr. Edward June (RBC) [Mass/Vol]36.4 g/dLCritically high29.9-35.2The [facility] HospitalComment on above:Performed By: #### HIV12 #### [facility] [address] [place] [address] Dr. Edward Desai (RBC) [Entitic vol]82.3 bWEyhvep85.0-99.0The [facility] HospitalComment on above:Performed By: #### HIV12 #### [facility] [address] [place] [address] Dr. Edward Rosas #0.7 103/ulNormal0.3-0.8The [facility] HospitalComment on above:Performed By: #### HIV12 #### [facility] [address] [place] [address] Dr. Edward Ignacioocytes/100 WBC (Bld)7.7 %Normal1.7-12.0[facility] Comment on above:Performed By: #### HIV12 #### [facility] [address] [place] [address] Dr. Yilan ChangNEUT #5.5 103/ulNormal1.4-6.5The [facility] HospitalComment on above:Performed By: #### HIV12 #### [facility] [address] [place] [address] Dr. Edward Moralesutrophils/100 WBC (Bld)63.9 %Pvrbxg48.0-75.0The [facility] HospitalComment on above:Performed By: #### HIV12 #### [facility] [address] [place] [address] Dr. Edward GillPlatelet mean volume (Bld) [Entitic vol]10.0 fLNormal9.5-13.5The [facility] HospitalComment on above:Performed By: #### HIV12 #### [facility] [address] [place] [address] Dr. Edward GillPLT274 103/anLwqzrg412-082Ful [facility] HospitalComment on above: Performed By: #### HIV12 #### [facility] [address] [place] [address] Dr. Edward GillRBC3.90 106/ulCritically low4.20-5.40The [facility] HospitalComment on above:Performed By: #### HIV12 #### [facility] [address] [place] [address] Dr. Edward GillWBC8.7 103/ulNormal4.0-11.0The [facility] HospitalComment on above: Performed By: #### HIV12 #### [facility] [address] [place] [address] Dr. Edward GillCovid-19 PCR ([facility]VDBOSTON NURS[facility] FOR BL[facility])on 15-83-0234QNZV-CoV-2 (COVID-19) RNA LELO+probe Ql (Unsp spec)Not detectedNormalNOT DETECTEDThe [facility] Comment on above:Result Comment: When diagnostic [...] for this test is supported by the [place] of Health and Human Service's declaration that [...] longer be used).Performed By: #### HIV12 #### [facility] [address] [address] [address] Edward GillDRUG SCREEN RAPID (URINE)on 14-57-6352GQIAdesrqinDycftaXGDAQAID [facility] HospitalComment on above:Performed By: #### DRUGRPD ####[facility] [address] [address] Edward GillBAR NegativeNormalNEGATIVEMccullough-Hyde Memorial Hospital HospitalComment on above:Performed By: #### DRUGRPD ####[facility] [address] [address]Dr. Edward GillBUPNegativeNormalNEGATIVEUc West Chester HospitalComment on above:Performed By: #### DRUGRPD ####[facility] [address] [address]Dr. Edward GillBZONegativeNormalNEGATIVEUc West Chester HospitalComment on above:Performed By: #### DRUGRPD ####[facility] [address] [address]Dr. Edward GillCOCNegative NormalNEGATIVEUc West Chester HospitalComment on above:Performed By: #### DRUGRPD ####[facility] [address] [place], [place] [address]Dr. Edward GillCUT-OFFSSEE BELOWMetroHealth Cleveland Heights Medical CenterComment on above:Result Comment: AMP (Amphetamine): 500ng/mL, BAR (Barbituates): 200 ng/mL, BZO (Benzodiazepines): 150 ng/mL, BUP (Buprenorphine): 10 ng/mL, INDIA (Cocaine): 150 ng/mL, mAMP (Methamphetamine): 500 ng/mL, MTD (Methadone): 200 ng/mL, OPI (Opiates): 100 ng/mL, OXY (Oxycodone): 100 ng/mL, PCP (Phencyclidine): 25 ng/mL, PPX (Propoxyphene): 300 ng/mL, THC (Cannabinoids): 50 ng/mL, TCA (Trycyclic Antidepressants): 300 ng/mLPerformed By: #### DRUGRPD ####[facility] [address] [place], [place] [address]Dr. Edward ChangDRUG CUT HEADERDRUG CLASS TEST SYSTEM CUT-OFF CONCENTRATIONS ARE FOLLOWS:NormalThe [facility] HospitalComment on above:Performed By: #### DRUGRPD ####[facility] [address] [place], [place] [address]Dr. Edward ChangmAMP NegativeNormalNEGATIVEMccullough-Hyde Memorial Hospital HospitalComment on above:Performed By: #### DRUGRPD ####[facility] [address] [place], [place] [address]Dr. Yilan ChangMTDNegativeNormalNEGATIVEMccullough-Hyde Memorial Hospital HospitalComment on above:Performed By: #### DRUGRPD ####[facility] [address] [place], [place] [address]Dr. Yilan ChangOPINegativeNormalNEGATIVEMccullough-Hyde Memorial Hospital HospitalComment on above:Performed By: #### DRUGRPD ####[facility] [address] [place], [place] [address]Dr. Yilan ChangOXYNegative NormalNEGATIVEMccullough-Hyde Memorial Hospital HospitalComment on above:Performed By: #### DRUGRPD ####[facility] [address] [place], [place] [address]Dr. Yilan ChangPCPNegativeNormalNEGATIVEMccullough-Hyde Memorial Hospital HospitalComment on above: Performed By: #### DRUGRPD ####[facility] [address] [place], [place] [address]Dr. Yilan ChangPPXNegativeNormalNEGATIVEMccullough-Hyde Memorial Hospital HospitalComment on above:Performed By: #### DRUGRPD ####[facility] [address] [id number]. Edward GillTCANegative NormalNEGATIVEUc West Chester HospitalComment on above:Performed By: #### DRUGRPD ####[facility] [address] [id number]. Edward GillTHCNegativeNormalNEGATIVEUc West Chester HospitalComment on above: Performed By: #### DRUGRPD ####[facility] [address] [id number]. Edward Sherwood PREG BIOPHY W NON STRESSon 04-08-0314SK PREG BIOPHY W NON STRESSEXAMINATION: US PREG [...] Electronically authenticated by: HUMERA KIM Date: 2022-05-06 19:05[facility] PREG BIOPHY W NON STRESSon 26-20-6600KW PREG BIOPHY W NON STRESSEXAMINATION: US PREG [...] Electronically authenticated by: ANGIE GALDAMEZ Date: 2022-05-01 16:16[facility] B STREP CULTUREon 04-23-2022. agalactiae Ag Ql (Unsp spec)Isolate 1 Streptococcus agalactiae Heavy growth of ORGANISM 1 Streptococcus agalactiae ANTIBIOTIC M.I.C RX STATUS Ampicillin <=0.25 S F Cefotaxime <=0.12 S F Ceftriaxone <=0.12 S F Clindamycin <=0.25 R F Erythromycin >=8 R F Inducible Clindamycin Resistance POS F Levofloxacin =0.5 S F Linezolid <=2 S F Tetracycline >=16 R F Vancomycin =0.5 S FNormalUc West Chester HospitalComment on above:Performed By: #### GBSCX ####[facility] [address] [place], [place] [address]Bd. Edward GillUS PREG BIOPHY W NON STRESSon 63-98-7978ZE PREG BIOPHY W NON STRESSEXAMINATION: US PREG [...] Electronically authenticated by: HUMERA KIM Date: 2022-04-17 17:[address] [place] [address] PREG GROWTHon [id number] PREG GROWTHEXAMINATION: US PREG GROWTH HISTORY: Gestational [...] Electronically authenticated by: HUMERA KIM Date: 2022-04-17 16:49[facility] PREG BIOPHY W NON STRESSon 33-11-8950MG PREG BIOPHY W NON STRESSEXAMINATION: US PREG [...] Electronically authenticated by: HUMERA KIM Date: 2022-04-12 08:56[facility] Medical CenterGLUCOSE, BLOOD (POC)on 21-34-4502Eqbsfrd [Mass/Vol]106 mg/dL [place]77 - 99 mg/dLOhioHealth Doctors Hospital PREG BIOPHY W NON STRESSon 32-54-8094WT PREG BIOPHY W NON STRESSEXAMINATION: US PREG [...] Electronically authenticated by: HUMERA KIM Date: 2022-04-01 16:08[facility] PREG BIOPHY W NON STRESSon 45-20-3894SJ PREG BIOPHY W NON STRESSEXAMINATION: US PREG [...] Electronically authenticated by: HUMERA KIM Date: 2022-03-27 08:54NoMartin Memorial HospitalUS PREG GROWTHon 95-57-2617UG PREG GROWTHEXAMINATION: US PREG GROWTH HISTORY: Maternal [...] Electronically authenticated by: HUMERA KIM Date: 2022-03-17 06:04[facility] Medical CenterTSHon 42-96-5027ZPT3.586 uIU/mLNormal0.358-3.740The [facility] HospitalComment on above:Performed By: #### HIV12 #### [facility] [address] [place] [address] Dr. Edward GillTYPE AND SCREENon 11-68-0449RMXD AND SCREENNegativeMetroHealth Cleveland Heights Medical CenterComment on above:Performed By: #### TNS #### [facility] [address] [place] [address] Dr. Edward GillPAP ACOG PANEL 2: 30 to 65on 02-21-2022..NormalThe Samaritan HospitalComment on above:Result Comment: Performed at: WBPerformed By: #### [id number] ####[facility] [address] [place], [place] [address]DrLazara Koenig Gdln ACOG Yfmndmx98-38AzlgpsRfqSelect [facility] on above:Performed By: #### [id number] ####[facility] [address] [place], [place] [address]Dr. Edward GillDIAGNOSIS:CommentZanesville City Hospital on above:Result Comment: NEGATIVE FOR INTRAEPITHELIAL LESION OR MALIGNANCY. Performed at: WBPerformed By: #### [id number] ####[facility] [address] [place], [place] [address]Dr. Edward GillHPV AptimaNegativeNormal NegativeThe [facility] on above:Result Comment: This nucleic acid amplification test detects fourteen high-risk HPV types (16,18,31,33,35,39,45,51,52,56,58,59,66,68) without differentiation. Performed at: =GPerformed By: #### [id number] ####[facility] [address] [place], [place] [address]Dr. Edward GillMethodology:CommentZanesville City Hospital on above:Result Comment: This liquid based ThinPrep(R) pap test was screened with the use of an image guided system. Performed at: WBPerformed By: #### [id number] ####[facility] [address] [place], [place] [address]Dr. Edwadr GillNote:CommentZanesville City Hospital on above:Result Comment: The Pap smear is a screening test designed to aid in the detection of premalignant and malignant conditions of the uterine cervix. It is not a diagnostic procedure and should not be used as the sole means of detecting cervical cancer. Both false-positive and false-negative reports do occur. . Performed at: WBPerformed By: #### [id number] ####[facility] [address] [place], [place] [address]Dr. Edward ChangPerformed by:CommentZanesville City Hospital on above:Result Comment: Zenaida Diop, Social Services Director (ASCP) Performed at: WBPerformed By: #### [id number] ####[facility] Kwntoeggsl[address] [place], [place] [address]Dr. Edward GillSpecimen adequacy:Comment NormalUc West Chester HospitalComment on above:Result Comment: Satisfactory for evaluation. No endocervical component is identified. Performed at: WBPerformed By: #### [id number] ####[facility] S[address]zfd[address] [place], [place] [address]Dr. Edward GillCHLAMYDIA/GONOCOCCUS LELO (SWAB/URINE/PAPon 01-78-5738Assjcecoe trachomatis, NAANegativeNormalNegativeUc West Chester HospitalComment on above:Performed By: #### CT/NGNA ####[facility] M[address]xvxyce[address] [place], [place] [address]Dr. Edward Gill Neisseria gonorrhoeae, NAANegativeNormalNegativeUc West Chester HospitalComment on above:Performed By: #### CT/NGNA ####[facility] Nniqb[address]px[address] [place], [place] [address]Dr. Edward GillVAGINITIS/VAGINOSIS DNA PROBEon 99-75-2485Ftdbhpm speciesNegativeNormalNegativeUc West Chester HospitalComment on above:Performed By: #### VAGINT ####[facility] [address]urqlvutq[address] [place], [place] [address]Dr. Edward GillGardnerella vaginalisNegativeNormal NegativeThe Samaritan HospitalComment on above:Performed By: #### VAGINT ####[facility] F[address]abqhblv[address] [place], [place] [address]Dr. Edward GillTrichomonas vaginalisNegativeNormalNegativeUc West Chester Hospital Comment on above:Performed By: #### VAGINT ####[facility] Opfosopzji[address] [place], [place] [address]Dr. Edward GillTSHon 76-22-8430IYR9.536 uIU/mLNormal0.358-3.740The [facility]aritan HospitalComment on above:Performed By: #### TSH ####[facility] Vrwtvkyjsb[address] [place], [place] [address]Pj. Edward JairoGLUCOSE - 1HRon 22-00-2100Sguvirh [Mass/Vol]160 mg/dLCritically high 74-106Uc West Chester HospitalComment on above:Performed By: #### GLU1HR ####[facility] [address] [id number] Edward SepulvedaHon 94-66-0522TYL9.899 uIU/mLNormal0.358-3.740[facility] Comment on above:Performed By: #### HIV12 #### [facility] [address] [address] [address] Edward Garcia, [facility] 43-79-2007Nqatpkkjfj byUltSt. Elizabeth Health ServicesComment on above:Performed By: #### AAFPM #### [address] [address] Business Coordinator: Pancho Cano MD [address] [address] Business Coordinator: Yosvany ArriagaBluffton HospitalComment on above:Result Comment: Results for Estimated Due Date: 05 13 22Performed By: #### AAFPM #### [address] [address] Business Coordinator: Pancho Cano MD [facility] [address] [place] [address] Business Coordinator: Danelle ArriagaGrant HospitalComment on above:Performed By: #### AAFPM #### [address] [address] Business Coordinator: Pancho Cano MD [facility] [address] [place], [place] [id number] Business Coordinator: Zhang Bledsoe MDGestat Age (exact)15 wks, 2 daysNoTriHealthComment on above:Performed By: #### AAFPM #### [facility] [address] [place] [address] Business Coordinator: Pancho Cano MD [address] [phone] Business Coordinator: Zhang Bledsoe MDIns Req Matern DiabThe Bellevue HospitalComment on above:Performed By: #### AAFPM #### [facility] [address] [address] Business Coordinator: Pancho Cano MD [address] [address] Business Coordinator: Zhang Bledsoe MDInterpretationScreen Wooster Community HospitalComment on above:Result Comment: (NOTE) INTERPRETATION: SCREEN NEGATIVE for open spina bifida Neural Tube Defects (NTD) Negative Pre-Test Post-Test Cutoff Neural Tube Defects Risks 1:1030 1:2690 1:250 Comments: The risk of an open neural tube defect is less than the screening cut-off. This test was developed and its performance characteristics determined by [employer]. It has not been cleared or approved by the [place] Food and Drug Administration. This test was performed in a CLIA certified laboratory and is intended for clinical purposes.Performed By: #### AAFPM #### [facility] [address] [address] Business Coordinator: Pancho Cano MD [address] [phone] Business Coordinator: Osmar Arriagaternal Age at Del36.6 yrEast Liverpool City HospitalComment on above:Performed By: #### AAFPM #### [facility] [address] [address] Business Coordinator: Pancho Cano MD [address] [phone] Business Coordinator: Osmar Arriagaglendora community hospital RaceNonblackNoTriHealthComment on above:Performed By: #### AAFPM #### [facility] [address] [place] [address] Business Coordinator: Pancho Cano MD [facility] [address] [place] [address] Business Coordinator: Osmar Arriagaglendora community hospital Ppvrup680.0 lbs.NormalMercy Health Perrysburg HospitalComment on above:Performed By: #### AAFPM #### [facility] [address] [place] [address] Business Coordinator: Pancho Cano MD [facility] [address] [place] [address] Business Coordinator: BAKARI Arriaga for AFP1.52NormCleveland Clinic Mercy HospitalComment on above:Performed By: #### AAFPM #### [facility] [address] [place] [address] Business Coordinator: Pancho Cano MD [address] [address] Business Coordinator: Zhang Bledsoe MDNumber of FetusesSingletonNoTriHealthComment on above:Performed By: #### AAFPM #### [facility] [address] [address] Business Coordinator: Pancho Cano MD [facility] [address] [place] [address] Business Coordinator: Smith Arriaga's AFP35 ng/mLNormalMercy Health Perrysburg HospitalComment on above:Performed By: #### AAFPM #### [facility] [address] [place] [address] Business Coordinator: Pancho Cano MD [facility] [address] [place] [address] Business Coordinator: NIKITA ArriagaCleveland Clinic [facility] Comment on above:Performed By: #### AAFPM #### [address] [address] Business Coordinator: Pancho Cano MD [address] [phone] Business Coordinator: Azucena ArriagaCleveland Clinic Avon HospitalComment on above:Result Comment: (NOTE) Initial sample Performed by [employer], [address] [place] [phone] www.[employer], Yayo Moncada MD, PHD, Lab. DirectorPerformed By: #### AAFPM #### [address] [address] Business Coordinator: Pancho Cano MD [address] [phone] Business Coordinator: Zhang Bledsoe MDAThomas B. Finan Center 02-31-5183Gizcsde[address] [place], [place] [address]Comment on above:Performed By: #### AAFPM #### [address] [address] Business Coordinator: Pancho Cano MD [address] [phone] Business Coordinator: SHIVA ArriagaAdena Pike Medical Center Comment on above:Performed By: #### AAFPM #### [facility] [address] [address] Business Coordinator: Pancho Cano MD [address] [phone] Business Coordinator: Zhang Bledsoe [facility] Comment on above:Performed By: #### AAFPM #### [address] [address] Business Coordinator: Pancho Cano MD [facility] [address] [place] [address] Business Coordinator: SHIVA Arriagaonojeanine EggINFORMATION NOT PROVIDEDEast Liverpool City HospitalComment on above:Performed By: #### AAFPM #### [facility] [address] [place] [address] Business Coordinator: Pancho Cano MD [facility] [address] [place] [address] Business Coordinator: Zhang Bledsoe MDEstimbanner desert medical center Due [id number] Liverpool City HospitalComment on above:Performed By: #### AAFPM #### [facility] [address] [address] Business Coordinator: Pancho Cano MD [facility] [address] [place] [address] Business Coordinator: Zhang Bledsoe MDBayridge Hospital HistoryNegativeEast Liverpool City HospitalComment on above:Performed By: #### AAFPM #### [facility] [address] [place] [address] Business Coordinator: Pancho Cano MD [facility] [address] [place] [address] Business Coordinator: Zhang Bledsoe MDIn Vitro FertalizatINFORMATION NOT PROVIDEDMercy Health Anderson HospitalComment on above:Performed By: #### AAFPM #### [facility] [address] [place] [address] Business Coordinator: Pancho Cano MD [facility] [address] [place] [address] Business Coordinator: Zhang Bledsoe MDCOQUILLE VALLEY HOSPITAL [id number] Liverpool City HospitalComment on above:Performed By: #### AAFPM #### [facility] [address] [place] [address] Business Coordinator: Pancho Cano MD [facility] [address] [place] [address] Business Coordinator: Zhang Bledsoe MDMaternal [id number] Liverpool City HospitalComment on above:Performed By: #### AAFPM #### [facility] [address] [place] [address] Business Coordinator: Pancho Cano MD [facility] [address] [place] [address] Business Coordinator: Osmar Arriagaternal Dzzyfr223BpkccaDnycwEast Liverpool City HospitalComment on above:Performed By: #### AAFPM #### [facility] [address] [place] [address] Business Coordinator: Pancho Cano MD [facility] [address] [place] [address] Business Coordinator: BAKARI Arriagaonochorionic TwinsUC HealthComment on above:Performed By: #### AAFPM #### [facility] [address] [place] [address] Business Coordinator: Pancho Cano MD [facility] [address] [place] [address] Business Coordinator: Zhang Bledsoe DECATUR MORGAN HOSPITALatient Weight UnitsLBSEast Liverpool City HospitalComment on above:Performed By: #### AAFPM #### [facility] [address] [place] [address] Business Coordinator: Pancho Cano MD [facility] [address] [place] [address] Business Coordinator: LUIS Arriagaace (Maternal)WHITEEast Liverpool City HospitalComment on above:Performed By: #### AAFPM #### [facility] [address] [place] [address] Business Coordinator: Pancho Cano MD [facility] [address] [place] [address] Business Coordinator: Jay Arriaga SpecimenINFORMATION NOT [facility]waukie HospitalComment on above:Performed By: #### AAFPM #### [facility] [address] [place] [address] Business Coordinator: Pancho Cano MD [facility] [address] [place] [address] Business Coordinator: Zhang Bledsoe MDValproic/CarbamazepINFORMATION NOT [facility]waukie HospitalComment on above:Performed By: #### AAFPM #### [facility] [address] [address] Business Coordinator: Pancho Cano MD [facility] [address] [place] [address] Business Coordinator: JIMENEZ Arriaga Single Marker Scrn, Maternal, Serumon 67-44-6413UbvQzhefvJefferson HospitalCarrier Study Non-ProMedicaon 65-85-2632HyzGmryyy[address] [place] [address] MISCELLANEOUS TESTINGon 20-68-1779Hvkt Out ReportFWD TO ST[facility] [address] [place], [place] [address]Test NameNATERA MOUNTAIN VIEW REGIONAL MEDICAL CENTERMiscellaneouson 93-84-7036Dnwa Out ReportFWD TO ST[facility] [address] [place], [place] [address]Comment on above:Performed By: #### CMIS #### [facility] [address] [place] [address] Business Coordinator: Pancho Cano MDTest [facility] Valley Community HospitalComment on above:Performed By: #### CMIS #### [facility] [address] [place] [address] Business Coordinator: RAJ Choi B SURFACE ANTIGEN SCREENon 83-26-0823YOeIi ScreenNegativeNormalNegativeThe [facility] on above:Performed By: #### HIV12 #### [facility] [address] [place] [address] Dr. Edward FranklinPATITIS C VIRUS AB W/ REFLEX QUANTon 77-70-8478NOG AB<0.1Normal 0.0-0.9[facility] on above:Performed By: #### HCVPCRR ####[facility] [address] [address]DrLazara GillInterpretation:CommentNormalThe [facility] on above: Result Comment: Negative Not infected with HCV, unless recent infection is suspected or other evidence exists to indicate HCV infection.Performed By: #### HCVPCRR ####[facility] [address] [address]DrLazara GillHIV 1 AND 2 WITH REFLEXon 65-78-3280IJT Screen 4th Generation wRfx Non-ReactiveNormalNon ReactiveThe [facility] on above:Result Comment: HIV Negative HIV-1/HIV-2 antibodies and HIV-1 p24 antigen were NOT detected. There is no laboratory evidence of HIV infection.Performed By: #### HIV12 #### [facility] [address] [place] [address] Dr. Edward GillRPJeanine QUANTon 03-95-7952Mhkgi Plasma Reagin, QuantNon-Reactive NormalNonRea<1:1[facility] on above:Result Comment: Please Note: This test does not meet current guidelines for screening and diagnosis of syphilis. This test is intended for following treatment response in patients being treated for syphilis infection. To screen for syphilis infection, a reflex cascade that includes both RPR and a treponema-specific assay should be utilized, such as Treponema pallidum (Syphilis) Screening [place] (240997) or Rapid Plasma Reagin (RPR) Test With Reflex to Quantitative RPR and Confirmatory Treponema pallidum Antibodies (886852).Performed By: #### RPRQ ####[facility] [address] [address]Dr. Edward OspinaBELLA AB IGG on 83-33-3215Ucxhelw Antibodies, IgG1.02 indexNormalImmune >0.99The [facility] HospitalComment on above:Result Comment: Non-immune <0.90 Equivocal 0.90 - 0.99 Immune >0.99Performed By: #### RUBIGG ####[facility] [address] [address]Dr. Edward AlfaroC AUTO DIFFon 54-23-6560QWGL # 0.0 103/ulNormal0.0-0.1The [facility] HospitalComment on above:Performed By: #### HIV12 #### [facility] [address] [place] [address] Dr. Edward GillBasophils/100 WBC (Bld)0.3 %Normal0.2-2.0[facility] Comment on above:Performed By: #### HIV12 #### [facility] [address] [place] [address] Dr. Edward Traore #0.1 103/ulNormal0.0-0.7The [facility] HospitalComment on above: Performed By: #### HIV12 #### [facility] [address] [place] [address] Dr. Edward Calhounosinophils/100 WBC (Bld)0.6 %Critically low0.9-7.0The [facility] HospitalComment on above:Performed By: #### HIV12 #### [facility] [address] [place] [address] Dr. Edward Calhounrythrocyte distribution width (RBC) [Ratio]14.1 %Kkdehc00.0-15.0 The [facility]itan HospitalComment on above:Performed By: #### HIV12 #### [facility] [address] [place] [address] Dr. Edward GillHematocrit (Bld) [Volume fraction]36.2 %Ymaguy15.0-48.0The [facility] HospitalComment on above:Performed By: #### HIV12 #### [facility] [address] [place] [address] Dr. Edward GillHemoglobin (Bld) [Mass/Vol]12.5 g/mYWlpjhd74.0-16.0The [facility] HospitalComment on above:Performed By: #### HIV12 #### [facility] [address] [place] [address] Dr. Edward Ray #0.05 10e3/ulCritically high0.00-0.03[facility] Comment on above:Performed By: #### HIV12 #### [facility] [address] [place] [address] Dr. Edward Ray %0.4 %Normal0.0-0.5The [facility] HospitalComment on above: Performed By: #### HIV12 #### [facility] [address] [place] [address] Dr. Edward Velásquez #2.7 103/ulNormal1.2-3.8The [facility] HospitalComment on above:Performed By: #### HIV12 #### [facility] [address] [place] [address] Dr. Edward Alvarezhocytes/100 WBC (Bld)23.2 %Nfpgrs78.5-60.0The [facility] HospitalComment on above:Performed By: #### HIV12 #### [facility] [address] [place] [address] Dr. Edward SimmonsUAL DIFF REQNONormalThe [facility]itan HospitalComment on above: Performed By: #### HIV12 #### [facility] [address] [place] [address] Dr. Edward June (RBC) [Entitic mass]30.6 wsWlcymh49.7-34.0The [facility] HospitalComment on above:Performed By: #### HIV12 #### [facility] [address] [place] [address] Dr. Edward June (RBC) [Mass/Vol]34.5 g/jKNyflyj17.9-35.2The [facility] City HospitalComment on above:Performed By: #### HIV12 #### [facility] [address] [address] [address] Edward JuneV (RBC) [Entitic vol]88.7 nZPntize97.0-99.0The [facility] HospitalComment on above:Performed By: #### HIV12 #### [facility] [address] [place] [address] Dr. Edward Rosas #0.7 103/ulNormal0.3-0.8The [facility] HospitalComment on above:Performed By: #### HIV12 #### [facility] [address] [place] [address] Dr. Edward Ignacioocytes/100 WBC (Bld)5.8 %Normal1.7-12.0[facility] Comment on above:Performed By: #### HIV12 #### [facility] [address] [place] [address] Dr. Edward Guevara #8.0 103/ulCritically high1.4-6.5[facility] Comment on above:Performed By: #### HIV12 #### [facility] [address] [place] [address] Dr. Edward Moralesutrophils/100 WBC (Bld)69.7 %Hlstsl84.0-75.0The [facility] HospitalComment on above:Performed By: #### HIV12 #### [facility] [address] [place] [address] Dr. Edward Serranolet mean volume (Bld) [Entitic vol]9.3 fLCritically low 9.5-13.5ThMount St. Mary HospitalComment on above:Performed By: #### HIV12 #### [facility] [address] [place] [address] Dr. Edward GillPLT338 103/yuQtdbyo836-483Uck [facility] HospitalComment on above: Performed By: #### HIV12 #### [facility] [address] [place] [address] Dr. Edward GillRBC4.08 106/ulCritically low4.20-5.40[facility] on above:Performed By: #### HIV12 #### [facility] [address] [address] [address] Edward SaulBC11.4 103/ulCritically high4.0-11.0The [facility] John Medical Centerment on above:Performed By: #### HIV12 #### [facility] [address] [place] [address] Dr. Edward GillCULTJEYSON URINEon 01-93-1178UMBRGWK URINECulture Observations: LIGHT GROWTH OF MIXED GENITAL MARTHA. NO POTENTIAL PATHOGENS SEEN.NormalThe [facility] Hospitals St. John Medical Centerment on above:Performed By: #### URCX #### [facility] [address] [place] [address] Dr. Edward GillGLYCOHEMOGLOBIN A1Con 65-76-0187FIA RECOMMENDATIONSEE BELOWNormal The [facility] HospitalComva medical center on above:Result Comment: ADA RECOMMENDED LIMIT 4.0 - 6.0 ADA THERAPEUTIC TARGET < 7.0 ACTION SUGGESTED > 7.0Performed By: #### A1C #### [facility] [address] [place] [address] Dr. Edward GillGlucose [Mass/Vol]117 mg/dLNormalThe [facility] HospitalComva medical center on above:Performed By: #### A1C #### [facility] [address] [place] [address] Dr. Edward GillHbA1c (Bld) [Mass fraction]5.7 %Normal4.5-6.2[facility] on above:Performed By: #### A1C #### [facility] [address] [place] [address] Dr. Edward Nair BOX TEST PT SEND OUTon 37-85-6326BRFV TO REF LAB10/25/2021 [facility]Ber[facility] on above:Performed By: #### HIV12 #### [facility] [address] [place] [address] Dr. Edward GillTSHodru 21-23-6072MXS1.700 uIU/mLNormal0.358-3.740The Piyush HospitalComment on above:Performed By: #### TSH ####[facility] [address] [id number] GillTYPE AND SCREEN on 87-44-1875XAYP AND SCREENNegativeZanesville City Hospital on above: Performed By: #### TNS ####[facility] [address] [address]Dr.Edward GillUS PREG TVon 05-47-6276EJ PREG TV EXAMINATION: US PREG TV HISTORY: [...] Electronically authenticated by: HUMERA KIM Date: 2021-09-23 10:27[facility] CenterPREG QUANT HCGon 34-06-2097GLR ANHMB6169 mIU/mLNormalUc West Chester HospitalComva medical center on above:Performed By: #### HIV12 #### [facility] [address] [address] [address] Edward GillHCG RANGESEE BELOWMetroHealth Cleveland Heights Medical CenterComment on above: Result Comment: 5-50 0-1 WEEK 40-300 1-2 WEEKS 100-1,000 2-3 WEEKS 500-6,000 3-4 WEEKS 5,000-200,000 1-2 MONTHS 10,000-100,000 2-3 MONTHS 3,000-50,000 2ND TRIMESTER 1,000-50,000 3RD TRIMESTERPerformed By: #### HIV12 #### [facility] [address] [address] [address] Edward GillCHEMISTRYOrdered By: SYSTEM SYSTEM on 01-60-3498Xwret gap [Moles/Vol]15 mmol/LNormal6 - 16 mEq/LFTMC RemisolCalcium [Mass/Vol]9.5 mg/dL Normal8.9 - 11.1 mg/dLFT RemisolChloride [Moles/Vol]102 mmol/JTkgvql266 - 111 mmol/LFTMC RemisolCO2 [Moles/Vol]22 mmol/LEtfdsu59 - 31 mmol/LFTMC Remisol Creatinine [Mass/Vol]0.9 mg/dLNormal0.5 - 1.3 mg/dLFT RemisolGFR/1.73 sq M.predicted among blacks MDRD (S/P/Bld) [Vol rate/Area]mL/min/1.73 j4Lvtdqg >=59mL/min/1.73 m2[facility] SGFR/1.73 sq M.predicted among non-blacks MDRD (S/P/Bld) [Vol rate/Area]mL/min/1.73 h5Rdzauj>=59mL/min/1.73 m2[facility] [place] S Glucose [Mass/Vol]85 mg/fRCtellb70 - 199 mg/dLFT RemisolPotassium [Moles/Vol] 3.9 mmol/LNormal3.5 - 5.3 mmol/LFTMC RemisolSodium [Moles/Vol]135 mmol/LNormal 135 - 145 mmol/LFTMC RemisolUrea nitrogen [Mass/Vol]6 mg/dLNormal5 - 21 mg/dL [facility] RemisolUrea nitrogen/Creatinine [Mass ratio]7 mg/mgLow10 - 20FT Remisol HEMATOLOGYOrdered By: SYSTEM SYSTEM on 88-88-3052Qoxwotadw/100 WBC (Bld)0.5 % Normal0.0 - 2.0 %[facility] HemeAutoSSBasophils/Leukocytes Auto (Bld) [Pure # fraction]0.0 E9/LNormal0.0 - 0.2 E9/LFTMC HemeAutoSSEosinophils/100 WBC (Bld)0.6 %Normal0.0 - 8.0 %[facility] HemeAutoSSEosinophils/Leukocytes Auto (Bld) [Pure # fraction]0.1 E9/LNormal0.0 - 0.5 E9/LFTMC HemeAutoSSLymphocytes/100 WBC (Bld) 36.8 %Jaksfx12.0 - 50.0 %[facility] HemeAutoSSLymphocytes/Leukocytes Auto (Bld) [Pure # fraction]2.9 E9/LNormal1.0 - 4.0 E9/LFTMC HemeAutoSSMonocytes/100 WBC (Bld)8.7 %Normal4.0 - 14.0 %[facility] HemeAutoSSMonocytes/Leukocytes Auto (Bld) [Pure # fraction]0.7 E9/LNormal0.2 - 1.0 E9/LFTMC HemeAutoSSNeutrophils/100 WBC (Bld) 53.4 %Lejhfa39.0 - 75.0 %[facility] HemeAutoSSNeutrophils/Leukocytes Auto (Bld) [Pure # fraction]4.2 E9/LNormal2.0 - 7.5 E9/LFTMC HemeAutoSSHEMATOLOGYOrdered By: Isha Yates on 48-77-2870Xiyoivykvxd distribution width (RBC) [Ratio]14.6 %High10.9 - 14.2 %[facility] HemeAutoSSHematocrit (Bld) [Volume fraction]36.4 %Normal 34.0 - 46.0 %[facility] HemeAutoSSHemoglobin (Bld) [Mass/Vol]12.6 g/jMZvaczx52.0 - 16.0 gm/dLFTMC HemeAutoSSMCH (RBC) [Entitic mass]29.9 gpAyxnqg64.0 - 34.0 pgFTMC HemeAutoSSMCHC (RBC) [Mass/Vol]34.6 g/bWVrmgon93.4 - 36.0 gm/dLFTMC HemeAutoSS MCV (RBC) [Entitic vol]86.6 zJYivomt05.0 - 100.0 fLFTMC HemeAutoSSPlatelet mean volume (Bld) [Entitic vol]8.2 fLNormal6.4 - 10.8 fLFTMC HemeAutoSSPlatelets (Bld) [#/Vol]367.0 E9/MKrnzbd985.0 - 500.0 E9/LFTMC HemeAutoSSRBC (Bld) [#/Vol] 4.2 E12/LLow4.3 - 5.9 E12/LFTMC HemeAutoSSWBC corrected for nucl RBC Auto (Bld) [#/Vol]7.9 E9/LNormal4.0 - 11.0 E9/LFTMC HemeAutoSSPREG QUANT HCGon 08-29-2021 HCG ZETCP075 mIU/mLNormalUc West Chester HospitalComment on above:Performed By: #### PREGQNT ####[facility] [address] [address]Dr. Edward Lim [facility] HospitalComment on above:Result Comment: 5-50 0-1 WEEK 40-300 1-2 WEEKS 100-1,000 2-3 WEEKS 500- 6,000 3-4 WEEKS 5,000-200,000 1-2 MONTHS 10,000-100,000 2-3 MONTHS 3,000-50,000 2ND TRIMESTER 1,000-50,000 3RD TRIMESTERPerformed By: #### PREGQNT ####[facility] S[address] [place], [place] [address]Dr. Edward GillPREWily QUANT HCGon 11-83-0376JPF QUANT99 mIU/mLNTwin City HospitalComment on above:Performed By: #### HIV12 #### [facility] [address] [address] [address] Edward Lim [facility] HospitalComva [facility] center on above: Result Comment: 5-50 0-1 WEEK 40-300 1-2 WEEKS 100-1,000 2-3 WEEKS 500-6,000 3-4 WEEKS 5,000-200,000 1-2 MONTHS 10,000-100,000 2-3 MONTHS 3,000-50,000 2ND TRIMESTER 1,000-50,000 3RD TRIMESTERPerformed By: #### HIV12 #### [facility] [address] [address] [address] Edward Cross QUANT HCGon 96-86-5411CAB QUANT37 mIU/mLNTwin City HospitalComva medical center on above:Performed By: #### PREGQNT ####[facility] [address] [place], [place] [address]Dr. Edward Lim RANGESEE BELOWNormalThe Bell City HospitalComment on above:Result Comment: 5-50 0-1 WEEK 40-300 1-2 WEEKS 100-1,000 2-3 WEEKS 500-6,000 3-4 WEEKS 5,000-200,000 1-2 MONTHS 10,000-100,000 2-3 MONTHS 3,000-50,000 2ND TRIMESTER 1,000-50,000 3RD TRIMESTERPerformed By: #### PREGQNT ####[facility] [address] [address]DrLazara Leon ChangCHEMISTRYOrdered By: SYSTEM SYSTEM on 83-22-0522Apjoami [Mass/Vol]4.5 g/dLNormal3.3 - 5.0 gm/dLFTMC Remisol Albumin/Globulin [Mass ratio]1.2 {ratio}Normal1.1 - 2.2FTMC RemisolALP [Catalytic activity/Vol]53 [iU]/hWfafxd87 - 98 Int._Unit/LFTMC RemisolALT No additional P-5'-P [Catalytic activity/Vol]24 [iU]/dNormal6 - 46 Int._Unit/LFTMC RemisolAnion gap [Moles/Vol]13 mmol/LNormal6 - 16 mEq/LFTMC RemisolAST [Catalytic activity/Vol]20 [iU]/dNormal5 - 43 Int._Unit/LFTMC RemisolBilirubin [Mass/Vol]0.6 mg/dLNormal0.0 - 1.1 mg/dLFTMC RemisolCalcium [Mass/Vol]9.4 mg/dL Normal8.9 - 11.1 mg/dLFTMC RemisolChloride [Moles/Vol]97 mmol/IYyj283 - 111 mmol/LFTMC RemisolCO2 [Moles/Vol]24 mmol/OJdzrmd18 - 31 mmol/LFTMC Remisol Creatinine [Mass/Vol]0.8 mg/dLNormal0.5 - 1.3 mg/dLFTMC RemisolGFR/1.73 sq M.predicted among blacks MDRD (S/P/Bld) [Vol rate/Area]mL/min/1.73 z5Voxjrt >=59mL/min/1.73 m2FT Chem SGFR/1.73 sq M.predicted among non-blacks MDRD (S/P/Bld) [Vol rate/Area]mL/min/1.73 e3Xdzara>=59mL/min/1.73 m2[facility] Chem S Globulin (S) [Mass/Vol]3.7 g/dLNormal1.4 - 4.0 gm/dLFTMC RemisolGlucose [Mass/Vol]74 mg/oTQglcky82 - 199 mg/dLPAWHUSKA HOS[facility] [place] RemisolMagnesium [Mass/Vol]2.0 mg/dL Normal1.3 - 2.4 mg/dLFTMC RemisolPotassium [Moles/Vol]3.5 mmol/LNormal3.5 - 5.3 mmol/LFTMC RemisolProtein [Mass/Vol]8.2 g/dLHigh6.0 - 7.8 gm/dLFT Remisol Sodium [Moles/Vol]130 mmol/XFkh373 - 145 mmol/LFTMC RemisolTSH Qn4.56 m[IU]/L Normal0.34 - 5.60 mcIU/mLPAWHUSKA [facility]OS[facility] [place] RemisolUrea nitrogen [Mass/Vol]7 mg/dLNormal5 - 21 mg/dLFTMC RemisolUrea nitrogen/Creatinine [Mass ratio]9 mg/mgLow10 - 20FTMC RemisolHEMATOLOGYOrdered By: SYSTEM SYSTEM on 40-06-9339Ryctvmqpj/100 WBC (Bld) 0.3 %Normal0.0 - 2.0 %[facility] HemeAutoSSBasophils/Leukocytes Auto (Bld) [Pure # fraction]0.0 E9/LNormal0.0 - 0.2 E9/LFTMC HemeAutoSSEosinophils/100 WBC (Bld)0.5 %Normal0.0 - 8.0 %[facility] HemeAutoSSEosinophils/Leukocytes Auto (Bld) [Pure # fraction]0.0 E9/LNormal0.0 - 0.5 E9/LFTMC HemeAutoSSLymphocytes/100 WBC (Bld) 35.9 %Yokiqt28.0 - 50.0 %[facility] HemeAutoSSLymphocytes/Leukocytes Auto (Bld) [Pure # fraction]3.2 E9/LNormal1.0 - 4.0 E9/LFTMC HemeAutoSSMonocytes/100 WBC (Bld)8.8 %Normal4.0 - 14.0 %[facility] HemeAutoSSMonocytes/Leukocytes Auto (Bld) [Pure # fraction]0.8 E9/LNormal0.2 - 1.0 E9/LFTMC HemeAutoSSNeutrophils/100 WBC (Bld) 54.5 %Nzxakc01.0 - 75.0 %[facility] HemeAutoSSNeutrophils/Leukocytes Auto (Bld) [Pure # fraction]4.8 E9/LNormal2.0 - 7.5 E9/LFTMC HemeAutoSSHEMATOLOGYOrdered By: Trena Castro on 67-71-2445Tdkxiofqgtg distribution width (RBC) [Ratio]14.1 % Jdayyg14.9 - 14.2 %[facility] HemeAutoSSHematocrit (Bld) [Volume fraction]38.5 %Normal 34.0 - 46.0 %[facility] HemeAutoSSHemoglobin (Bld) [Mass/Vol]13.1 g/xDZadkbx77.0 - 16.0 gm/dLFTMC HemeAutoSSMCH (RBC) [Entitic mass]29.4 hbAqppeg78.0 - 34.0 pgFTMC HemeAutoSSMCHC (RBC) [Mass/Vol]34.1 g/uWTbhqem91.4 - 36.0 gm/dLFTMC HemeAutoSS MCV (RBC) [Entitic vol]86.0 dPPdjwyz88.0 - 100.0 fLFTMC HemeAutoSSPlatelet mean volume (Bld) [Entitic vol]8.3 fLNormal6.4 - 10.8 fLFTMC HemeAutoSSPlatelets (Bld) [#/Vol]334.0 E9/YWtvsvz450.0 - 500.0 E9/LFTMC HemeAutoSSRBC (Bld) [#/Vol] 4.5 E12/LNormal4.3 - 5.9 E12/LFTMC HemeAutoSSWBC corrected for nucl RBC Auto (Bld) [#/Vol]8.9 E9/LNormal4.0 - 11.0 E9/LFTMC HemeAutoSSOB/[facility] - Office Visiton 48-91-5669XX/[facility] - Office VisitChief ComplaintComplains of: heavy bleeding Declines lens cleaner, Rukhsanacecily Salomon, ROSE History of Present IllnessSanna [...] stroke 07/2017 PSH as above POB- 2007 [id number] 17week loss subchorionic h bimuxkurr4870 39weeks bleeding at 5weeks for 2 weeks diet 5856-6386 calories exercise none 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 Review [...] HCl - 500 MG Oral Tablet;Ther apy: 08Jdg3036 to Recorded Dispense: 0 Days ; #: Sufficient Tablet; Refill: 0; BUBBA = N; Record; Last Updated By: Susie Salomon; 11/08/2017 4:19:42 PM Plavix 75 MG Oral Tablet;Therapy: 67Jlj4801 to Recorded Dispense: 0 Days ; #: Sufficient Tablet; Refill: 0; BUBBA = N; Record; Last Updated By: Susie Salomon; 11/08/2017 4:19:42 PM Provera 10 MG Oral Tablet;Therapy: 11Wfm8881 to Recorded Dispense: 0 Days ; #: Sufficient Tablet; Refill: 0; BUBBA = N; Record; Last Updated By: Susie Salomon; 11/08/2017 4:19:42 PM Vitals Vital Signs Recorded: 43Cyp3606 04:71HGFaiwztra400Fsjlwsgrd40Aqafnz8 ft 6 bcPnjjbi594 lb BMI Ijkrkwoqwg71.57BSA Calculated1.0WQE90Yzl9032Skjg Scale6-7 Physical ExamConstitutional: Alert and in no [...] GIDeclines STI testing todayWeight gain, offered a bleach chlorinator consult and she declined. Encouraged exercise. Signatures Electronically signed by : RICHARD Ulrich; Nov 12 2017 8:46PM EST (Author)NormalUH TouchworksAntiphospholipid Abs IgG/IgMon 93-96-4519Imspcktzqnhtucso Ab-SpS697 GPLCritically high0-14Uchealth Greeley HospitalComment on above:Result Comment: INTERPRETIVE INFORMATION: High- Specificity Antiphospholipid Antibody,IgG14 GPL or less......Tgklbgex55 26 GPL.........Indeterminate Suggest repeat testing in 12 weeks27 GPL or greater. ..PositiveHigh-specificity antiphospholipid IgG and IgM antibodies are directedagainsta mixture of phosphatidylserine, phosphatidic acid, and beta- 2glycoprotein 1antigens. These antibodies are more specific than cardiolipin IgG andIgMantibodies in the diagnosis of antiphospholipid syndrome (APS). Antiphospholipid Ab-IgM6 MPLNormal016 Mercado StreetComment on above:Result Comment: INTERPRETIVE INFORMATION: High-Specificity Antiphospholipid Antibody,IgM14 MPL or less......Qfkhqhdd23 37 MPL.........Indeterminate Suggest repeat testing in 12 weeks38 MPL or greater. ..PositiveHigh-specificity antiphospholipid IgG and IgM antibodies are directedagainsta mixture of phosphatidylserine, phosphatidic acid, and beta- 2glycoprotein 1antigens. These antibodies are more specific than cardiolipin IgG andIgMantibodies in the diagnosis of antiphospholipid syndrome (APS).Performed by [facility],[address] [place] [address],[place] [address] uwy.Mintera, Zhang Bledsoe MD - Lab. [facility] Miscellaneous test 1on 05-28-2017 Miscellaneous Test 1SEE [...] Additional information and recommendations for testingmay befound [email or web address]/[email or web address] [email or web address].Performed by [facility],[address] [facility] [place] [address] uov.Mintera,Zhang Bledsoe MD - Lab. DirectorCardiolipin Antibodies, IgA, IgG, IgMon 61-14-4633Nyiamezyrkv Ab IgA0 APLNormal0-11[facility] Greeley HospitalComment on above:Result Comment: INTERPRETIVE INFORMATION: Cardiolipin Antibodies, IgA0-11 APL: Cssgewrl50-07 APL: In ofulywmgiie55-66 APL: Low to Moderately Feomtcyi65 APL or above: High PositivePerformed by [facility],[address] [place] [address] tco.MinteraZhang MD - Lab. DirectorCardiolipin Ab IgG 111 GPLCritically high0-14[facility] Greeley HospitalComment on above:Result Comment: INTERPRETIVE INFORMATION: Anti-Cardiolipin IgG Ab0-14 GPL: Gxwxsiab89- 19 GPL: Ltwhayozrhkgp47-72 GPL: Low to Moderately Vrazcwqf21 GPL or above: High PositiveThe persistent presence [...] other criteria phospholipid antibody tests.Cardiolipin Ab IgM10 MPLNormal0-12[facility] Gree[facility] HospitalComment on above:Result Comment: INTERPRETIVE INFORMATION: Anti-Cardiolipin IgM0-12 MPL: Bzqfzfhn21-74 MPL: Ivrbmrphrwljs49-06 MPL: Low to Moderately Gitcnpdc56 MPL or above: High PositiveThe persistent presence [...] and/orothercriteria phospholipid antibody tests.Jennifer-Simpson Virus by PCRon 28-22-7880Qzwfsxm Simpson Virus by PCRNot DetectedNoAdventHealth AvistaComment on above:Result Comment: NOT DETECTED - A negative result does not rule out thepresence of PCR inhibitors inthe patient specimen or assayspecific nucleic acid in concentrations below the level ofdetection bythe assay.INTERPRETIVE INFORMATION: Jennifer Simpson Virus by PCRTest developed and characteristics determined by [facility]. SeeCompliance Statement A: Mintera/CSPerformed by [facility],[address] [facility] [place] [address] hrs.Mintera, Zhang Bledsoe MD - Lab. DirectorEpstein Simpson Virus SourceCSFUCHealth Grandview HospitalOligoclonal Band Profileon 29-86-0712Hkmozku5177 mg/nRVdkpcn8155-6915UztnxUchealth Greeley HospitalAlbumin 5.2 ratioNormal0.0-9.0U[facility] Greeley HospitalAlbumin, CSF20 mg/dLNormal 0-35U[facility] Greeley HospitalCSF IgG Synthesis Rate<0.0Normal<=8.0[facility] Greeley HospitalCSF Oligoclonal BandsNegativeNormalNegativeUchealth Greeley HospitalCSF Oligoclonal Bands Number0 BandsNormal0-1MChildren's Hospital Colorado, Colorado SpringsGlobulin1060 mg/lPPdierp982-3903FlgxzUchealth Greeley Hospital Comment on above:Result Comment: REFERENCE INTERVAL: Immunoglobulin GAccess complete set of age- and/or gender-specific reference intervalsforthis test in the [facility] Test Directory ([facility]).IgG Index0.45 ratioNormal 0.28-0.66U[facility] Greeley HospitalImmunoglobulin G CSF2.5 mg/dLNormal0.0-6.0 [facility] Greeley HospitalINR Coag RelTime (Bld)0.12 {INR}Normal0.09-0.25 [facility] Greeley HospitalInterpretationSee NoteNoAdventHealth AvistaComment on above:Result Comment: Isoelectric focusing/immunofixation reveals no oligoclonal bands ineitherthe CSF orthe serum. This is considered to be a negative result foroligoclonal bands. Approximately 5 percentof patients with clinicallydefinitive multiple sclerosis will have a negative result.Performed by [facility],[address] [facility] [place] [address] bfn.Mintera, Zhang Bledsoe MD - Lab.DirectorMyelin Basic Protein, CSFon 36-13-5924Mkrxor Basic Protein1.82 ng/mLNormal0.00-5.50U[facility] Greeley HospitalComment on above:Result Comment: INTERPRETIVE INFORMATION: Myelin Basic ProteinTest developed and characteristics determined by [facility]. SeeCompliance Statement D: Mintera/CSPerformed by [facility],[address] [facility] [place] [address] jsh.Mintera, Zhang Bledsoe MD - Lab. [facility] Miscellaneous test 1on 85-59-7783Bkdjksh Prompt 30450JywavtTfykyUCHealth Grandview HospitalComment on above:Result Comment: Corrected result; [place] [id number] on 05/25/2017 at 13:14 by V/AUT NHNanostim Miscellaneous test 1on 99-79-8805Ijitekk Dyygyk48691UvqjerRpvozUCHealth Grandview HospitalComment on above:Result Comment: DS DNACSF Cell Counton 05-25-2017 CSF no diffsee [facility] WestminsterComment on above:Result Comment: Differential not performed -Total Nucleated cellsCSF AppearanceClear NormalUchealth Greeley HospitalCSF ColorColorlessUCHealth Grandview HospitalCSF Tube NumberTube 4UCHealth Grandview HospitalFluid Clot Evaluationsee belowUCHealth Grandview HospitalComment on above:Result Comment: No Clots SeenTotal Nucleated Cells0 K/uLNormal0-8Uchealth Greeley HospitalTotal Red Blood Cells0 K/uLUCHealth Grandview HospitalCSF Glucose on 00-16-5246VRO Vwrjiol42 mg/cEXjfldm58-33WqpbtUchealth Greeley HospitalCSF Proteinon 94-28-3727DCV Plyvarr82 mg/mCLefvuh11-70ZpjloUchealth Greeley Hospital Creatine Kinaseon 78-97-7286Sfcbvmea kinase (CK)71 U/LNormal0-170Uchealth Greeley HospitalCulture, CSFon 72-63-7805Omudxbd, CSFORDER#: [id number] ORDERED BY: VERNA MONGE: CSF (Spinal Fluid) CSF COLLECTED: 05/25/17 13:25ANTIBIOTICS AT AMARILYS.: RECEIVED : 05/25/17 13:25Gram Stain Direct FINAL 05/25/17 15:30 No WBC's, No organisms seenCulture, CSF FINAL 05/28/17 09:04 No growth at 72 hours UCHealth Grandview HospitalFL LUMBAR PUNCTURE DIAGon 03-00-9048MF LUMBAR PUNCTURE DIAGFL LUMBAR PUNCTURE DIAG : [...] LUMBAR PUNCTURE.Interpreted by:NIKITA Mezaigned by:Humera Covarrubias MD05/25/17inal resultNormalUchealth Greeley Hospital Homocysteineon 18-46-5515Tdkwumjfjmnb3.1 umol/LNormal0.0-15.0U[facility] Greeley HospitalPartial Thromboplastin Timeon 21-95-0174eLLW00.7 cBpdihi32.6-35.4 [facility] Greeley HospitalComment on above:Result Comment: Heparin Therapeutic Range: 38.8 - 54.6 seconds.Prothrombin Timeon 31-33-5674FVY Coag RelTime (PPP)1.0 {INR}UCHealth Grandview HospitalComment on [...] secProthrombin time (PT) Coag time (PPP) 10.7 sNormal8.1-13.7[facility] Vital Signs Date TimeVital SignValuePerforming HmuehsvkiTnqxpfpm07-58-8962 09:26-0400Body mass index (BMI) [Ratio]33.98 kg/q7Mteey Direct Sitters DO Work Phone: [facility] HospitalMbkgyazyzg21-94-9079 09:26-0400Body .48 kgCorey Montez DO Work Phone: [facility] HospitalZdwusiijge26-51-1392 09:26-0400Diastolic blood lepnrmzc38 mm[Hg]Wilton Joongel Work Phone: [facility] HospitalXznfqbhtfd58-75-7694 09:26-0400Systolic blood uwlzxklv940 mm[Hg]Wilton Joongel Work Phone: [facility] HospitalCmjxtjrwdf14-09-3565 13:44-0400Body .6 cmApreet Callahan MD MPH Work Phone: [phone]10-20-2025 13:44-0400Body mass index (BMI) [Ratio]33.73 kg/q4WnttuSam Callahan MD MPH Work Phone: [phone])771-[address] [place], [place] [address]10-20-2025 13:44-0400Body udluca82.8 kgSam Callahan MD MPH Work Phone: [facility]10-20-2025 13:44-0400Diastolic blood fufngzeg34 mm[Hg]Sam Callahan MD MPH Work Phone: [facility]10-20-2025 13:44-0400Heart rate 79 /minSam Callahan MD MPH Work Phone: 1(567)585-[address] [place], [place] [address]10-20-2025 13:44-0400 Respiratory rate18 /minSam Callahan MD MPH Work Phone: [facility]10-20-2025 13:44-0400Systolic blood mggcivpq190 mm[Hg]Sam Callahan MD MPH Work Phone: [facility]10-13-2025 10:45-0400Body mass index (BMI) [Ratio]34.12 kg/o8Pzrwm Montez DO Work Phone: 1(270)003-[address] [place], [place] [address]Wryqoalmps75-06-5377 10:45-0400Body fzqypf60.89 kgCorey Montez DO Work Phone: 1(301)563-[address] [place] [address]-13-2025 10:45-0400Diastolic blood djsocjxr71 mm[Hg]Wilton Montez DO Work Phone: 1(296)240-[address] [place], [place] [address]Chccyggdzq09-01-7744 10:45-0400Systolic blood llsdhenl001 mm[Hg]Wilton Montez DO Work Phone: 1(045)228-[address] [place], [place] [address]Yzsuuyjxwu81-64-0709 09:30-0400Body mass index (BMI) [Ratio]34.14 kg/v8Vqejt Montez DO Work Phone: 1(996)740-[address] [place], [place] [address]Hvgxluwaaw07-82-2679 09:30-0400Body xmfjeg92.94 kgCorey Montez DO Work Phone: [phone])936-[address] [place], [place] [address]Sbfohxsvor29-79-8360 09:30-0400Diastolic blood jzzuurex51 mm[Hg]Wilton Montez DO Work Phone: 1(907)030-[address] [place], [place] [address]Zifobqrzbz07-37-0055 09:30-0400Systolic blood lfezmvui651 mm[Hg]Wilton Montez DO Work Phone: 1(028)323-[address] [place] [address]-08-2025 15:14-0400Body mass index (BMI) [Ratio]33.73 kg/j2Dzerb Montez DO Work Phone: [address] [place] [address]Orscdtzusw08-49-5058 15:14-0400Body qxdveg05.8 kg Wilton Montez DO Work Phone: [facility] HospitalUmxfmauwoc92-05-7751 15:14-0400Diastolic blood bvfxjxoi79 mm[Hg]Wilton Herrmann DO Work Phone: noDeaconess Incarnate Word Health SystemSfinyeoxfh50-32-8955 15:14-0400Systolic blood noweudyb097 mm[Hg]Wilton Herrmann DO Work Phone: noDeaconess Incarnate Word Health SystemRqhgsihjdi01-05-4041 14:22-0400Body mass index (BMI) [Ratio]33.89 kg/z3ZmqxvmfhMukul Noyola MD Work Phone: [phone]09-04-2025 14:22-0400Body oishxw42.25 kgMukul Noyola MD Work Phone: [phone])[address] [place], [place] [address]95009-04-2025 14:22-0400Diastolic blood duepdneg39 mm[Hg]Mukul Noyola MD Work Phone: [phone])[address] [place], [place] 0795009-04-2025 14:22-0400Systolic blood rkrbhynr653 mm[Hg]Mukul Noyola MD Work Phone: 1(546)[address] [place], [place] [address]008-26-2025 11:34-0400Body hygizm339.7 cmKatherine Negrete APRN.ART HISTORY INSTRUCTOR Work Phone: [facility]08-26-2025 11:34-0400Body mass index (BMI) [Ratio]33.57 kg/b7QpfraKatherine Negrete APRN.ART HISTORY INSTRUCTOR Work Phone: [facility]08-26-2025 11:34-0400Body temperature 97.59 [degF]Katherine Negrete OLERICULTURE PROFESSOR.ART HISTORY INSTRUCTOR Work Phone: [facility]08-26-2025 11:34-0400Body qkrihu88.4 kgKatherine Negrete APRN.ART HISTORY INSTRUCTOR Work Phone: [facility]08-26-2025 11:34-0400Diastolic blood izknpcdd28 mm[Hg]Katherine Negrete OLERICULTURE PROFESSOR.ART HISTORY INSTRUCTOR Work Phone: [facility]08-26-2025 11:34-0400Heart rate80 /min Katherine Negrete APRN.ART HISTORY INSTRUCTOR Work Phone: [facility]08-26-2025 11:34-0400Respiratory rate 16 /minKatherine Negrete APRN.ART HISTORY INSTRUCTOR Work Phone: [facility]08-26-2025 11:34-4624XbZ6% (BldA) [Mass fraction]98 %Katherine Negrete APRN.ART HISTORY INSTRUCTOR Work Phone: [facility]08-26-2025 11:34-0400Systolic blood dhskeedh609 mm[Hg]Katherine Negrete OLERICULTURE PROFESSOR.ART HISTORY INSTRUCTOR Work Phone: [facility]08-14-2025 09:28-0400Body mass index (BMI) [Ratio]33.41 kg/b6Zylip Montez DO Work Phone: [facility] HospitalEndqjzgrfx69-91-2706 09:28-0400Body heiunk06.89 kgCorey Montez DO Work Phone: [place] [address]Ysojdxehaa10-09-2438 09:28-0400Diastolic blood lmnukfpw17 mm[Hg]Wilton Montez DO Work Phone: [place] [address]Jcqwqpskre01-62-9715 09:28-0400Systolic blood mm[Hg]Wilton Montez DO Work Phone: [facility] HospitalDxielvmlol48-19-6968 10:53-0400Body mass index (BMI) [Ratio]33.57 kg/a9Carkz Montez DO Work Phone: [facility] HospitalIanzckejgs67-50-1439 10:53-0400Body rwqqur32.35 kgCorey Montez DO Work Phone: [facility] HospitalOhzvtxwghp13-56-3023 10:53-0400Diastolic blood azotokhv63 mm[Hg]Wilton Montez DO Work Phone: [facility] HospitalVkuyiplqgf30-38-4246 10:53-0400Systolic blood yruccliv750 mm[Hg]Wilton Montez DO Work Phone: [place] [address]Iaajkkzqeu52-40-5071 13:07-0400Body mass index (BMI) [Ratio]33.73 kg/l6RuplhjLorena Enciso RN Work Phone: 1(009)263-[address] [place], [place] [address]807-23-2025 13:07-0400Body ctzesj44.8 kgLorena Enciso RN Work Phone: 1(532)369-[address] [place], [place] [address]807-03-2025 09:32-0400Body mass index (BMI) [Ratio]33.81 kg/g1Qipaw Montez DO Work Phone: [facility] HospitalOlymkeugpl34-99-5503 09:32-0400Body .03 kgCorey Montez DO Work Phone: 1(004)268-[address] [place], [place] [address]Tycpbkoybm47-20-7449 09:32-0400Diastolic blood fyxxzusb51 mm[Hg]Wilton Montez DO Work Phone: [facility] HospitalAixxgivyle55-25-6836 09:32-0400Systolic blood gkhkrgob301 mm[Hg]Iwlton Montez DO Work Phone: 1(078)022-[address] [place], [place] [address]Ncvqoxiwsh19-19-0140 14:23-0400Body mass index (BMI) [Ratio]33.46 kg/w7JauqyKatherine Negrete APRN.ART HISTORY INSTRUCTOR Work Phone: [facility]07-01-2025 14:23-0400Body temperature 97 [degF]Katherine Negrete APRN.ART HISTORY INSTRUCTOR Work Phone: [facility]07-01-2025 14:23-0400Body syopwy25.1 kgKatherine Negrete APRN.ART HISTORY INSTRUCTOR Work Phone: [facility]07-01-2025 14:23-0400Diastolic blood zgoxocgi16 mm[Hg]Katherine Negrete APRN.ART HISTORY INSTRUCTOR Work Phone: [facility]07-01-2025 14:23-0400Heart rate82 /min Katherine Negrete APRN.ART HISTORY INSTRUCTOR Work Phone: [facility]07-01-2025 14:23-0400Respiratory rate 16 /minKatherine Negrete APRN.ART HISTORY INSTRUCTOR Work Phone: [facility]07-01-2025 14:23-8283GsQ8% (BldA) [Mass fraction]100 %Katherine Negrete APRN.ART HISTORY INSTRUCTOR Work Phone: [facility]07-01-2025 14:23-0400Systolic blood lvowiytb769 mm[Hg]Katherine Negrete APRN.ART HISTORY INSTRUCTOR Work Phone: [facility]06-05-2025 14:10-0400Body mass index (BMI) [Ratio]33.89 kg/m2[facility]06-05-2025 14:10-0400Body olctnd04.25 kgResearch [facility]06-05-2025 14:10-0400Diastolic blood ajrzeetm67 mm[Hg][facility]06-05-2025 14:10-0400Systolic blood cxmlaflw858 mm[Hg][facility]03-27-2025 12:07-0400Body mass index (BMI) [Ratio]34.44 kg/f8Ycwur Montez DO Work Phone: [facility] HospitalIdlixhdbkw11-75-8871 12:07-0400Body .8 kg Wilton Montez DO Work Phone: [facility] HospitalUnoyuivega07-18-4910 12:07-0400Diastolic blood rsevhfnu47 mm[Hg]Wilton Montez DO Work Phone: [facility] HospitalWigdimudii19-70-4345 12:07-0400Systolic blood mm[Hg]Wilton Montez DO Work Phone: [facility] HospitalDffmpamekm84-52-8059 08:27-0500Blood Pressure LocationScott KAPLE [phone]-TbyxiProtestant Hospital03-03-2025 08:27-0500Diastolic blood fxmynhdz48 mm[Hg]Penelope KAPLE [phone]-NjfgrProtestant Hospital03-03-2025 08:27-0500Heart rate77 /minScott KAPLE [phone]-MwhaqProtestant Hospital03-03-2025 08:27-7836EfW9% (BldA) [Mass fraction]99 %Penelope CASAS [phone]-MumhaProtestant Hospital03-03-2025 08:27-0500Systolic blood mm[Hg]Penelope CASAS [phone]-LaqvaProtestant Hospital02-24-2025 15:21-0500Body mass index (BMI) [Ratio]34.93 kg/a5Tkqiz Montez DO Work Phone: [facility] [id number] 15:21-0500Body ivwjzk59.16 kgCorey Montez DO Work Phone: [facility] [id number] 15:21-0500Diastolic blood hmoonlre43 mm[Hg]Wilton Montez DO Work Phone: [facility] [phone] 15:21-0500Systolic blood lnulndfo980 mm[Hg]Wilton Montez DO Work Phone: [facility] [id number] 16:14-0500Blood Pressure LocationJESSICA BACA [phone]-OdpgwC[facility] 06-19-2024 16:14-0500Diastolic blood bomibsge21 mm[Hg]JESSICA BACA [phone]-RajktC[facility] Clinic [facility] 06-19-2024 16:14-0500Heart rate74 /minBARRONCLYN KEVEN [phone]-NfgerC[facility] Clinic [facility] 06-19-2024 16:14-7390LrG7% (BldA) [Mass fraction]100 %JESSICA BACA [phone]-YwddvC[facility] Clinic [facility] 06-19-2024 16:14-0500Systolic blood hxjoudfp556 mm[Hg]JESSICA BACA [phone]-MvpgiC[facility] 06-09-2024 13:55-0500Blood Pressure LocationScott KAPLE [phone]-JqbswProtestant Hospital02-10-2025 13:55-0500Diastolic blood syfyrifw17 mm[Hg]Penelope KAPLE [phone]-VhuhcProtestant Hospital02-10-2025 13:55-0500Heart rate78 /minScott KAPLE [phone]-YrdguProtestant Hospital02-10-2025 13:55-9576NmR2% (BldA) [Mass fraction]99 %Penelope KAPLE [phone]-VgevlProtestant Hospital02-10-2025 13:55-0500Systolic blood ciejcdqw995 mm[Hg]Penelope STYLESLE 001-7789Clkbss-EwnwtProtestant Hospital02-03-2025 11:43-0500Body mass index (BMI) [Ratio]34.51 kg/g2Stvgv Montez DO Work Phone: [facility] HospitalXhhsqimfqf56-80-1776 11:43-0500Body wialnp99.98 kgCorey Montez DO Work Phone: [facility] HospitalQeloisbhgc63-82-5893 11:43-0500Diastolic blood mm[Hg]Wilton Montez DO Work Phone: [facility] HospitalCaawklpovd89-66-4334 11:43-0500Systolic blood fbcsdeyx209 mm[Hg]Wilton Montez DO Work Phone: [facility] HospitalJvlmivvcqn06-01-6822 13:07-0500Body utcxoi176.7 cmVramos Calix MD Work Phone: [facility]01-29-2025 13:07-0500Body mass index (BMI) [Ratio]35.02 kg/k2QjxegKristofer Calix MD Work Phone: [facility]01-29-2025 13:07-0500Body temperature 97.59 [degF]Kristofer Calix MD Work Phone: [facility]01-29-2025 13:07-0500Body syznjd58.5 kgKristofer Calix MD Work Phone: [facility]01-29-2025 13:07-0500Diastolic blood ltuudvsi47 mm[Hg]Kristofer Calix MD Work Phone: [facility]01-29-2025 13:07-0500Heart rate72 /min Kristofer Calix MD Work Phone: [facility]01-29-2025 13:07-0500Respiratory rate 16 /minKristofer Calix MD Work Phone: [facility]01-29-2025 13:07-9079AdR7% (BldA) [Mass fraction]99 %Kristofer Calix MD Work Phone: [facility]01-29-2025 13:07-0500Systolic blood mm[Hg]Kristofer Calix MD Work Phone: [facility]01-07-2025 14:40-0500Body mass index (BMI) [Ratio]35.41 kg/l7Gseuk Montez DO Work Phone: [facility] HospitalRnucbqwerp34-14-8996 14:40-0500Body xeorrz36.52 kgCorey Montez DO Work Phone: [facility] HospitalAfgleazaxu10-90-4120 14:40-0500Diastolic blood mm[Hg]Wilton Montez DO Work Phone: [facility] HospitalFerpfulfxo77-18-0263 14:40-0500Systolic blood oaxjeucj165 mm[Hg]Wilton Montez DO Work Phone: [facility] HospitalRzxnfvieyj64-48-8474 10:57-0500Body mass index (BMI) [Ratio]35.85 kg/m2[facility]12-06-2024 10:57-0500Body jmalkm494.75 kgNoMoberly [facility]10-08-2024 13:29-0400Blood Pressure LocationScott KAPLE 041-2104Yrpcex-Vnszl[address] [place], [place] 0456810-08-2024 13:29-0400Body ferqrdtghnu01.06 [degF]Penelope CASAS 686-6489Jqtcro-Xngzx[address] [place], [place] 0456810-08-2024 13:29-0400Diastolic blood icpqodsu89 mm[Hg]Penelope STYLESLE 135-0760Wtbahp-Okrvg[address] [place], [place] 0456810-08-2024 13:29-0400Heart rate76 /minScott KAPBEN 184-4270Hzckqh-Lnvlk[address] [place], [place] 0456810-08-2024 13:29-0400Respiratory rate16 /minScott KAPBEN 321-9828Airchy-Vjhhw[address] [place], [place] 0456810-08-2024 13:29-0273HvM7% (BldA) [Mass fraction]99 %Penelope CASAS 307-1908Krxoal-Buoxc[address] [place], [place] 0456810-08-2024 13:29-0400Systolic blood ljfmpagz631 mm[Hg]Penelope CASAS 752-1804Qtenjj-Ffcbd[address] [place], [place] 0456810-05-2024 14:39-0400Blood Pressure LocationPreeti Gudimella 716-8275Aopjlh-Ocuaf[address] [place], [place] 4504410-05-2024 14:39-0400Body inatefcebuo14.06 [degF]Anni Gudimella 367-9987Kunafg-Sqpxz[address] [place], [place] 4504410-05-2024 14:39-0400Diastolic blood tessmrrg52 mm[Hg]Anni Gudimella 791-5543Linocn-XmxppJ.W. [facility]10-05-2024 14:39-0400Heart rate98 /minPreeti Gudimella 224-2369Gmvbbr-Zalhj[address] [place], [place] 4504410-05-2024 14:39-0115DcT6% (BldA) [Mass fraction]99 %Anni Gudimella 204-9784Ewcgeh-FktkxCleveland [facility] Ojis59-74-2302 14:39-0400Systolic blood yymmsanb113 mm[Hg]Anni Gudimella 455-2931Wjdsjs-MzunzCleveland Clinic [facility] Hrej50-62-4636 13:45-0400Body rgyuoy289.7 cmVramos Calix MD Work Phone: [facility]09-04-2024 13:45-0400Body mass index (BMI) [Ratio]36.52 kg/a1DjwwuKristofer Calix MD Work Phone: [facility]09-04-2024 13:45-0400Body temperature 97.11 [degF]Kristofer Calix MD Work Phone: [facility]09-04-2024 13:45-0400Body kjxtom375.7 kgKristofer Calix MD Work Phone: [facility]09-04-2024 13:45-0400Diastolic blood lglksvol65 mm[Hg]Kristofer Calix MD Work Phone: [facility]09-04-2024 13:45-0400Heart rate91 /min Kristofer Calix MD Work Phone: [facility]09-04-2024 13:45-0400Respiratory rate 16 /minKristofer Calix MD Work Phone: [facility]09-04-2024 13:45-1825XdU2% (BldA) [Mass fraction]100 %Kristofer Calix MD Work Phone: [facility]09-04-2024 13:45-0400Systolic blood iezetule721 mm[Hg]Kristofer Calix MD Work Phone: [facility]08-01-2024 13:40-0400Body temperature 97.7 [degF]Chair Stephens Work Phone: [facility]08-01-2024 13:40-0400Diastolic blood kdzaamre93 mm[Hg]Chair Stephens Work Phone: [facility]08-01-2024 13:40-0400Heart rate75 /min Chair Stephens Work Phone: [facility]08-01-2024 13:40-0400Respiratory rate 16 /minChair Stephens Work Phone: [facility]08-01-2024 13:40-2137RfM2% (BldA) [Mass fraction]99 %Chair Stew Work Phone: [facility]08-01-2024 13:40-0400Systolic blood wbxcuzrl728 mm[Hg]Chair Stephens Work Phone: [facility]07-25-2024 14:00-0400Body temperature 98.2 [degF]Chair Stephens Work Phone: [facility]07-25-2024 14:00-0400Diastolic blood ymaffrcn45 mm[Hg]Chair Stephens Work Phone: [facility]07-25-2024 14:00-0400Heart rate79 /min Chair Stephens Work Phone: [facility]07-25-2024 14:00-0400Respiratory rate 16 /minChair Stew Work Phone: [facility]07-25-2024 14:00-2158RcS9% (BldA) [Mass fraction]99 %Chair Stephens Work Phone: [facility]07-25-2024 14:00-0400Systolic blood uqfrubin037 mm[Hg]Chair Stew Work Phone: [facility]07-18-2024 14:08-0400Diastolic blood sxirdjoy75 mm[Hg]Chair Stew Work Phone: [facility]07-18-2024 14:08-0400Heart rate85 /min Chair Stew Work Phone: [facility]07-18-2024 14:08-0400Respiratory rate 18 /minChair Stew Work Phone: [facility]07-18-2024 14:08-6300UhY7% (BldA) [Mass fraction]96 %Chair Stew Work Phone: [facility]07-18-2024 14:08-0400Systolic blood mwnugpas930 mm[Hg]Chair Stew Work Phone: [facility]07-12-2024 14:44-0400Blood Pressure LocationMonica Saba 364-3806Pcfwpz-Qtjtc[address] [place], [place] 0456807-12-2024 14:44-0400Body iicsoagctdb92.34 [degF]Monica Saba 501-7525Kohqlq-Fmlvg[address] [place], [place] 0456807-12-2024 14:44-0400Diastolic blood magrgpqx04 mm[Hg]Monica Saba 580-1633Soaddi-Qoxdl[address] [place], [place] 0456807-12-2024 14:44-0400Heart rate85 /Jennifer Saba 253-6316Lqnlhj-Ugirv[address] [place], [place] 0456807-12-2024 14:44-0400Respiratory rate16 /Jennifer Saba 283-0689Vyrirx-Ayqmx[address] [place], [place] 0456807-12-2024 14:44-2444NlU4% (BldA) [Mass fraction]99 %Monica Saba 685-4018Rchfou-Liira[address] [place], [place] 0456807-12-2024 14:44-0400Systolic blood erwrsmct408 mm[Hg]Monica Saba 852-8329Eggtdw-Cqaov[address] [place], [place] 0456806-25-2024 16:48-0400Blood Pressure LocationLourdes Garber 728-7842Xwbhxj-Mmkts[address] [place], [place] 0456806-25-2024 16:48-0400Body lkwrolagtiq21.52 [degF]Lourdes Garber 938-4714Qhxgrk-Uheax[address] [place], [place] 0456806-25-2024 16:48-0400Diastolic blood jowqwfzi21 mm[Hg]Lourdes Garber 847-1036Wgbxcy-Cwvop[address] [place], [place] 0456806-25-2024 16:48-0400Heart rate86 /minLourdes Garber 946-4611Yroosg-Vzfha[address] [place], [place] 0456806-25-2024 16:48-4177OpA0% (BldA) [Mass fraction]99 %Lourdes Garber 309-3774Hmvjhw-Rqbct[address] [place], [place] 0456806-25-2024 16:48-0400Systolic blood axnwwlwc667 mm[Hg]Lourdes Garber 024-3340Kavinm-Jfekz[address] [place], [place] 0456805-31-2024 21:17-0400Body .06 [degF]Benny Uribe [address]05-31-2024 21:17-0400 Diastolic blood yalfidey11 mm[Hg]Benny Uribe [address] [place], [place] 6757605-31-2024 21:17-0400Heart rate67 /minBenny Uribe [address] [place], [place] 6757605-31-2024 21:17-0400Mean blood hptnajun66 mm[Hg]Benny Uribe [address] [place], [place] 6757605-31-2024 21:17-2673FpT1% (BldA) [Mass fraction]95 %Benny Uribe [address] [place], [place] 6757605-31-2024 21:17-0400 Systolic blood euirxapc798 mm[Hg]Benny Uribe [address] [place], [place] 6754305-31-2024 20:00-0400 Diastolic blood vyxklfrk79 mm[Hg]Benny Uribe [address] [place], [place] 6754305-31-2024 20:00-0400Heart rate78 /minBenny Uribe [address] [place], [place] 6754305-31-2024 20:00-0400Mean blood inzdqbfk43 mm[Hg]Benny Uribe [address] [place], [place] 6754305-31-2024 20:00-0400 Respiratory rate20 /minBenny Uribe [address] [place], [place] 6754305-31-2024 20:00-0400 Systolic blood sfenvepg498 mm[Hg]Benny Uribe [address] [place], [place] 6754305-31-2024 19:30-0400 Diastolic blood waspclhg86 mm[Hg]Benny Uribe [address] [place], [place] 6754305-31-2024 19:30-0400Heart rate80 /minBenny Uribe [address] [place], [place] 6754305-31-2024 19:30-0400Mean blood tdlpqiuw893 mm[Hg]Benny Uribe [address] [place], [place] 6754305-31-2024 19:30-0400 Respiratory rate18 /minBenny Uribe [address] [place], [place] 6754305-31-2024 19:30-0031ZnC3% (BldA) [Mass fraction]100 %Benny Uribe [address] [place], [place] 6754305-31-2024 19:30-0400 Systolic blood bxlaczeg069 mm[Hg]Benny Uribe [address] [place], [place] 6754305-31-2024 19:00-0400 Respiratory rate17 /minBenny Uribe [address] [place], [place] 6754305-31-2024 18:32-0400Body ahwzycodxfs14.42 [degF]Benny Uribe [facility]05-31-2024 18:32-0400Heart rate69 /minAntonderik Rony [facility]05-31-2024 17:46-0400 Diastolic blood yqvqdche57 mm[Hg]JANET DUNHAM 109-3852Rlcbmq-Uhlgw[address] [place] [address] Convenient Qzwg14-04-1147 17:46-0400Mean blood ihbmisnz306 mm[Hg]ATLANTA DUNHAM 030-7419Clwrvi-Yplsh[address] [place] [address] [facility]ient Pesj34-21-9308 17:46-0400Systolic blood lbugowrw016 mm[Hg][facility] 929-4280Qzuzpb-Eutuw[address] [place] [address] Convenient Cnjs95-63-1557 17:40-0400Blood Pressure LocationFRANCJONEL DUNHAM 527-3347Uucjgu-Cvzdx[address] [place] [address] [facility]ient Lpux16-02-5672 17:40-0400Body mkyrnrxuzju79.88 [degF][facility] 331-9564Ylkiny-Pjcrk[address] [place] [address] [facility]ient Gwsg70-52-1263 17:40-0400Diastolic blood daashgmf32 mm[Hg][facility] 993-1450Rtlwxh-Ghcts[address] [place] [address] [facility]ient Zzjt36-90-4431 17:40-0400Heart rate79 /minFRPRITESH DUNHAM 008-1795Tlaaau-Cplfy[address] [place] [address] [facility]ient Vboh74-83-9897 17:40-1034HhV4% (BldA) [Mass fraction]97 %ATLANTA DUNHAM 868-8201Qpwerd-Wrauq[address] [place] [address] [facility]ient Soni88-55-0537 17:40-0400Systolic blood hydfzucl261 mm[Hg]JANET DUNHAM 198-5383Regnkr-Clezq[address] [place] [address] [facility] Hios54-93-0462 11:42-0400Blood Pressure LocationScott KAPLE 329-5598Rlppir-LhopnProtestant Hospital04-05-2024 11:42-0400Body yqpinqftktg70.06 [degF]Penelope CASAS 541-2722Snvjfk-CfyweProtestant Hospital04-05-2024 11:42-0400Diastolic blood ovscdpba08 mm[Hg]Penelope CASAS 959-5522Xyziln-EwkwrProtestant Hospital04-05-2024 11:42-0400Heart rate72 /minScott KAPLE 800-3632Naxkoi-JduacProtestant Hospital04-05-2024 11:42-0400Respiratory rate16 /minScott KAPLE 568-5259Vjhtma-IjojvProtestant Hospital04-05-2024 11:42-1321OcE0% (BldA) [Mass fraction]99 %Penelope CASAS 067-8080Tpykiy-YexvrProtestant Hospital04-05-2024 11:42-0400Systolic blood fimzqoaf018 mm[Hg]Penelope CASAS 012-5396Lleiax-JsqulProtestant Hospital02-16-2024 14:05-0500Body hibpkb110.7 eJrry Calix MD Work Phone: [facility]02-16-2024 14:05-0500Body temperature 97.39 [degF]Kristofer Calix MD Work Phone: [facility]02-16-2024 14:05-0500Body .1 kgKristofer Calix MD Work Phone: [place] [address]-16-2024 14:05-0500Diastolic blood twazsdys97 mm[Hg]Kristofer Calix MD Work Phone: [facility]02-16-2024 14:05-0500Heart rate87 /min Kristofer Calix MD Work Phone: [place] [address]-16-2024 14:05-0500Respiratory rate 16 /minKristofer Calix MD Work Phone: [facility]02-16-2024 14:05-3660SsN9% (BldA) [Mass fraction]95 %Kristofer Calix MD Work Phone: [facility]02-16-2024 14:05-0500Systolic blood iepmkrlq916 mm[Hg]Kristofer Calix MD Work Phone: [facility]01-26-2024 11:11-0500Blood Pressure LocationScott KAPLE [address] [place], [place] 1054901-26-2024 11:11-0500Body dejgojzxlvk84.7 [degF]Penelope KAPLE [address] [place], [place] 1054901-26-2024 11:11-0500Diastolic blood dtsbcwte83 mm[Hg]Penelope KAPLE 778-9147Fwahha-Ekvit[address]01-26-2024 11:11-0500Heart rate76 /minScott KAPLE 255-3863Cxnjjv-Oajfj[address] [place], [place] 0456801-26-2024 11:11-0500Respiratory rate18 /minScott KAPLE [address] [place], [place] 1054901-26-2024 11:11-7727CmU1% (BldA) [Mass fraction]98 %Penelope KAPLE [address] [place], [place] 1054901-26-2024 11:11-0500Systolic blood mm[Hg]Penelope KAPLE 520-1059Mmibqo-Vlksu[address]10-19-2023 09:41-0400Blood Pressure LocationScott KAPLE 416-6608Dygigb-Ollnk[address] [place], [place] 0456810-19-2023 09:41-0400Body bjtpdzwgvlu42.42 [degF]Penelope KAPLE 059-8213Pcbveo-Suefx[address] [place], [place] 0456810-19-2023 09:41-0400Diastolic blood vsnqyqti81 mm[Hg]Penelope PRAVEEN 699-8932Jtecpa-Rfllu[address] [place], [place] 0456810-19-2023 09:41-0400Heart rate80 /minScott KAPLE 253-0948Ztloer-Fssma[address] [place], [place] 0456810-19-2023 09:41-0400Respiratory rate18 /minScott KAPLE 508-9658Qoahob-Tmpuh[address] [place], [place] 0456810-19-2023 09:41-4160HlF1% (BldA) [Mass fraction]98 %Penelope STEPHANIBEN 375-5809Ucshsg-Jclmz[address]10-19-2023 09:41-0400Systolic blood cbbihigx989 mm[Hg]Penelope PRAVEEN 213-6138Offcaf-Mamax[address]06-23-2023 09:44-0400Blood Pressure LocationScott STEPHANILE [address] [place], [place] 1054906-23-2023 09:44-0400Body daocwyfnxfm25.24 [degF]Penelope PRAVEEN [address] [place], [place] 1054906-23-2023 09:44-0400Diastolic blood uqjtgzzz73 mm[Hg]Penelope CASAS 753-6488Rqpzui-Ladzn[address]06-23-2023 09:44-0400Heart rate88 /minScott STEPHANILE 488-9435Oyrdzc-Atzuy[address] [place], [place] 0456806-23-2023 09:44-0400Respiratory rate18 /minScott KAPLE 286-7596Pyzquo-Jiflf[address] [place], [place] 0456806-23-2023 09:44-7865DsA4% (BldA) [Mass fraction]98 %Penelope CASAS 908-5509Mvxauc-Mghfg[address] [place], [place] 0456806-23-2023 09:44-0400Systolic blood tsqqczey255 mm[Hg]Penelope CASAS 443-5096Thbsyt-UbstkProtestant Hospital03-30-2023 13:18-0400Body .7 cmVramos Calix MD Work Phone: [facility]03-30-2023 13:18-0400Body temperature 97.5 [degF]Kristofer Calix MD Work Phone: [facility]03-30-2023 13:18-0400Body .78 kgKristofer Calix MD Work Phone: [facility]03-30-2023 13:18-0400Diastolic blood mm[Hg]Kristofer Calix MD Work Phone: [facility]03-30-2023 13:18-0400Heart rate76 /min Kristofer Calix MD Work Phone: [facility]03-30-2023 13:18-0400Respiratory rate 16 /minKristofer Calix MD Work Phone: [facility]03-30-2023 13:18-5251BpE4% (BldA) [Mass fraction]97 %Kristofer Calix MD Work Phone: [facility]03-30-2023 13:18-0400Systolic blood uwixwsfp950 mm[Hg]Kristofer Calix MD Work Phone: [facility]12-22-2022 13:45-0500Body temperature 98.71 [degF]Chair Stew Work Phone: [facility]12-22-2022 13:45-0500Diastolic blood zmykgnpy77 mm[Hg]Chair Stew Work Phone: [facility]12-22-2022 13:45-0500Heart rate85 /min Chair Stew Work Phone: [place] [address]-22-2022 13:45-7440YaH9% (BldA) [Mass fraction]97 %Chair Stew Work Phone: [facility]12-22-2022 13:45-0500Systolic blood oomvbnqf641 mm[Hg]Chair Stephens Work Phone: [facility]12-07-2022 16:27-0500Diastolic blood mm[Hg]Chair Stephens Work Phone: [phone] [address]-07-2022 16:27-0500Heart rate84 /min Chair Stew Work Phone: [place] [address]-07-2022 16:27-0500Respiratory rate 18 /minChair Stew Work Phone: [place] [address]-07-2022 16:27-1644GkW5% (BldA) [Mass fraction]96 %Chair Stew Work Phone: [facility]12-07-2022 16:27-0500Systolic blood uwhcaxue314 mm[Hg]Chair Stew Work Phone: [facility]11-28-2022 14:20-0500Body uqjbmr046.7 cmVramos Calix MD Work Phone: [facility]11-28-2022 14:20-0500Body temperature 97.39 [degF]Kristofer Calix MD Work Phone: [place] [address]-28-2022 14:20-0500Body cygkyl822.23 kgKristofer Calix MD Work Phone: [place] [address]-28-2022 14:20-0500Diastolic blood tobhwjtg31 mm[Hg]Kristofer Calix MD Work Phone: [place] [address]-28-2022 14:20-0500Heart obhf452 /minKristofer Calix MD Work Phone: [place] [address]-28-2022 14:20-0500Respiratory rate 16 /minKristofer Calix MD Work Phone: [facility]11-28-2022 14:20-3150ExV1% (BldA) [Mass fraction]97 %Kristofer Calix MD Work Phone: [facility]11-28-2022 14:20-0500Systolic blood adtgnhqv422 mm[Hg]Krisotfer Calix MD Work Phone: [facility]10-03-2022 11:46-0400Body suxhct197.7 cmVramos Calix MD Work Phone: [facility]10-03-2022 11:46-0400Body temperature 97.2 [degF]Kristofer Calix MD Work Phone: [facility]10-03-2022 11:46-0400Body pypfie207.42 kgKristofer Calix MD Work Phone: [facility]10-03-2022 11:46-0400Diastolic blood raksazhe68 mm[Hg]Kristofer Calix MD Work Phone: [facility]10-03-2022 11:46-0400Heart rate88 /min Kristofer Calix MD Work Phone: [facility]10-03-2022 11:46-0400Respiratory rate 16 /minKristofer Calix MD Work Phone: [facility]10-03-2022 11:46-4783CcF0% (BldA) [Mass fraction]99 %Kristofer Calix MD Work Phone: [facility]10-03-2022 11:46-0400Systolic blood zgjtiedo784 mm[Hg]Kristofer Calix MD Work Phone: [facility]04-22-2022 10:46-0400Blood Pressure [facility]JULISAWOR[facility] 619-3107Yrabwa-AdrupCleveland Clinic [facility] 04-22-2022 10:46-0400Diastolic blood szkjabqa85 mm[Hg] PERNELL SIDELL 129-9307Ozfzjb-FoxakCleveland Clinic [facility]mount Hospital 04-22-2022 10:46-0400Heart rate96 /minDERIK SIDELL 673-8654Anhyoh-LazglCleveland Clinic [facility] 04-22-2022 10:46-9684AmR7% (BldA) [Mass fraction]99 % PERNELL SIDELL 901-7084Agooxa-VcypjCleveland Clinic [facility] 04-22-2022 10:46-0400Systolic blood zffucwav025 mm[Hg] PERNELL SIDELL 415-2543Sqxmvw-AzhabCleveland Clinic [facility] Encounters Encounter DateEncounter [facility] ProviderFacilityStart: 03-11-2025 End: 05-11-0776jxegobaymwBROMTWLake [facility]: 03-11-2025 End: 61-69-2333Mxncxu outpatient visit 25 minutesSana Palma MD Work Phone: [phone]-Cyccv [facility] Comment on above:Gestational diabetes mellitus (GDM) in second trimester controlled on oral hypoglycemic drug (Primary Dx); Antiphospholipid syndromeStart: 03-10-2025 End: 10-04-1502Avakvd flowsheetCorey Montez DO Work Phone: [facility] OBGYNStart: 03-10-2025 End: 81-20-6569Tnuhvu flowsheetCorey Montez DO Work Phone: [facility] [place] OBGYNStart: 03-10-2025 End: 54-94-4440zezawblxioEWLMM FAZIONot AvailableStart: 03-06-2025 End: 02-26-6175Uvkduxgpc Result EncounterCorey Montez DO Work Phone: noms External Department UnsolicitedStart: 03-06-2025 End: 83-20-8163Wflynnrob Result EncounterCorey Montez DO Work Phone: noms External Department UnsolicitedStart: 03-02-2025 End: 05-22-3398xgpghjqrfxVZFVS MARTINEZFacility:[facility] Hospitaltart: 02-27-2025 End: 82-19-9917Hpmdaiknc Result EncounterCorey Montez DO Work Phone: noms External Department UnsolicitedStart: 02-27-2025 End: 34-43-0349Hvxttbmqo Result EncounterCorey Montez DO Work Phone: noms External Department UnsolicitedStart: 02-23-2025 End: 25-03-7479Aepquo flowsheetCorey Montez DO Work Phone: NODW [place] OBGYNStart: 02-23-2025 End: 91-29-4980Dqwexu flowsheetCorey Montez DO Work Phone: noms [facility] OBGYNStart: 02-23-2025 End: 00-54-8647rgwfnkdhrwSUMIU FAZIONot AvailableStart: 02-23-2025 End: 53-84-5977Mpsxfq outpatient visit 15 minutesCorey Montez DO Work Phone: noms [place] OBGYNComment on above:Third trimester ([facility]); 30 weeks gestation of ([facility])Start: 02-20-2025 End: 96-05-4929Jppkticoo Result EncounterCorey Montez DO Work Phone: noms External Department UnsolicitedStart: 02-20-2025 End: 50-88-5551Tvagxatyk Result EncounterCorey Montez DO Work Phone: noms External Department UnsolicitedStart: 02-17-2025 End: 13-46-3756Pdichvwta Result EncounterCorey Montez DO Work Phone: noms External Department UnsolicitedStart: 02-17-2025 End: 27-43-4493Myjpgdkky Result EncounterCorey Montez DO Work Phone: noms External Department UnsolicitedStart: 02-16-2025 End: 35-48-0919Mqkzhr consultation new/estab patient 80 Héctor Callahan MD MPH Work Phone: [facility] of [facility] HealthComment on above:Antiphospholipid syndrome (Primary Dx); Antiphospholipid syndrome complicating , antepartum; History of CVA (cerebrovascular accident); Coordination of complex care; 29 weeks gestation of pregnancyStart: 02-16-2025 End: 02-43-9146ambflqqtehOLVZO REDDY AMBATISouthern [facility] Medical Centertart: 02-10-2025 End: 21-06-6911Eafexenvv encounterAnnita WELLS Work Phone: [phone]-Utfqh [facility] Start: 02-09-2025 End: 77-39-6139uomlfcelskLVEUJ FAZIONot AvailableStart: 02-09-2025 End: 59-69-8123Wbswoi outpatient visit 15 minutesCorey Montez DO Work Phone: [facility] [place] [facility]BGYNComment on above:Third trimester ([facility] 28 weeks gestation of ([facility]); Anemia complicating childbirth ([facility]); Anticoagulant long-term use; Antiphospholipid antibody positive; Blood pressure elevated without history of HTN; Coagulation defect, unspecified ([facility])Start: 02-06-2025 End: 70-33-0855dxvqvzqqkqJCCGWJHN P DOCHEVAAccess Hospital [facility] HospitalStart: 02-06-2025 End: 37-74-8469Cafrnm outpatient visit 25 minutesMukul Noyola MD Work Phone: [phone]-Ftnhg [facility] Comment on above:27 weeks gestation of (Primary Dx); Multigravida of advanced maternal age in third trimester; Gestational diabetes mellitus (GDM) in second trimester controlled on oral hypoglycemic drug; Antiphospholipid syndrome complicating , antepartum; Antiphospholipid syndromeStart: 02-05-2025 End: 77-86-3778tqunwhdzdcKBRRO [facility] PPGStart: 02-03-2025 End: 62-09-9043ekycfecdqgZiswp R FAOFacility:FTMCStart: 01-19-2025 End: 67-42-8743rirytuozvgGNZCB FAONot AvailableStart: 01-19-2025 End: 48-68-2111Syfany outpatient visit 15 minutesCorey Montez DO Work Phone: [facility] OBGYNComment on above:Second trimester ([facility] 25 weeks gestation of ([facility]); Gestational diabetes mellitus (GDM), antepartum, gestational diabetes method of control unspecified([facility]); Anticoagulant long-term use; Antiphospholipid antibody positive; Antiphospholipid antibody syndrome ([facility])Start: 90-68-1197drmmlegqtwNzsfc R FAZIOFacility:FTMCStart: 01-13-2025 End: 15-86-4148Focnui outpatient visit 25 minutesColleen Maxim Mays PA-C Work Phone: [phone]-Dgano [facility] Comment on above:Gestational diabetes mellitus (GDM) in second trimester controlled on oral hypoglycemic drug (Primary Dx); Antiphospholipid syndrome; Other specified hypothyroidism; Antiphospholipid syndrome complicating , antepartumStart: 01-13-2025 End: 61-82-3199zksbsouvefAKGUWUC E Corey Hospitaltart: 01-09-2025 End: 46-83-5913Drybsnlpy Batsheva Noyola MD Work Phone: [phone]-Uszhz Medicine at [facility] Comment on above:Antiphospholipid syndrome (Primary Dx)Start: 01-07-2025 End: 58-29-2795Mpwmvczxw encounterJacque Pat [facility]art: 01-05-2025 End: 12-67-7173ahongimpuqZNDMP FAONot AvailableStart: 01-05-2025 End: 47-43-5405Dxvfta outpatient visit 15 minutesCorey Joongel Work Phone: NOMS [place] OBGYNComment on above:Second trimester ([facility] 23 weeks gestation of ([facility]); Thyroid disease ; Gestational diabetes mellitus (GDM), antepartum, gestational diabetes method of control unspecified([facility]); Multigravida of advanced maternal age in second trimester ([facility]); H/O loss; Lightheaded; DizzinessStart: 01-05-2025 End: 33-65-5131Tqbmum flowsheetFreeze Tagy Joongel Work Phone: NOYI Piyush OBGYNStart: 01-05-2025 End: 25-60-5971Bqzsxd flowsheetCore Montez DO Work Phone: NOIV Piyush OBGYNStart: 01-05-2025 End: 18-04-6775Kpdqmuxbgpora procedureNew [facility] Rehabilitation Hospital [facility] RNMaternal- Medicine at [facility] HealthComment on above:Multigravida of advanced maternal age [...] Family history of autism; HyponatremiaStart: 01-01-2025 End: 27-72-7677Hhmfrx consultation new/estab patient 80 Margaux Noyola MD Work Phone: [facility] on above: 22 weeks gestation of (Primary Dx); Antiphospholipid syndrome complicating , antepartum; History of stroke; History of loss in prior , currently in second trimester; Gestational diabetes mellitus (GDM) in second trimester controlled on oral hypoglycemic drug; Multigravida of advanced maternal age in second trimester; Hypothyroidism affecting in second trimester; Family history of autism; HyponatremiaStart: 01-01-2025 End: 24-48-2170Kolyku Simon Warren RNMaternal Medicine [place] Comment on above:Multigravida of advanced maternal age in second trimester (Primary Dx); Antiphospholipid syndrome complicating , antepartum; Gestational diabetes mellitus (GDM) in second trimester controlled on oral hypoglycemic drug; Insulin controlled gestational diabetes mellitus (GDM) in second trimester; AMA (advanced maternal age) multigravida 35+, second trimester; Hypothyroidism, unspecified typeStart: 12-26-2024 End: 57-44-8895Pbjgrr Ty Noyola MD Work Phone: [facility] - LaborComment on above: Gestational diabetes mellitus (GDM) in second trimester controlled on oral hypoglycemic drug (Primary Dx)Start: 12-23-2024 End: 28-43-3203Equnkua encounter procedureKatherine Negrete APRN.CNP Work Phone: Hematology/OncologyStart: 12-23-2024 End: 49-31-7504uxktvplauvDpxeyJuju Negrete APRN.CNP Work Phone: Hematology/OncologyComment on above:Antiphospholipid antibody positive (Primary Dx); Iron deficiency anemia secondary to blood loss (chronic); Vitamin D deficiency; Primary hypercoagulable state (HCC)Start: 12-17-2024 End: 98-76-8624xmzbqgzpidESHGCIEM BROGANAccess Hospital [facility] HospitalStart: 12-17-2024 End: 23-31-0044Tibdik outpatient visit 25 minutesAlisa HUTTON Work Phone: [phone]-Ubrsu Medicine at [facility] Comment on above:Gestational diabetes mellitus (GDM) in second trimester controlled on oral hypoglycemic drug (Primary Dx)Start: 12-17-2024 End: 85-89-4972cyzdpgcuvgYVKFDUIG BROSelect Medical [facility] HospitalStart: 12-16-2024 End: 03-92-2152Meftlgjui Result EncounterCorey Montez DO Work Phone: noms External Department UnsolicitedStart: 12-16-2024 End: 49-72-2003Hdlksahks Result EncounterCorey Montez DO Work Phone: noms External Department UnsolicitedStart: 12-12-2024 End: 26-51-3557Vjyeuozxk encounterDenikijacinta Kendall LD Work Phone: [phone]-Njdpl Medicine at [facility] Start: 12-11-2024 End: 42-54-3692Jjhjkl flowsheetCorey Montez DO Work Phone: noms [place] OBGYNStart: 12-11-2024 End: 19-61-0517Poarkn flowsheetCorey Montez DO Work Phone: noms Piyush OBGYNStart: 12-11-2024 End: 97-95-2998Priqmztfj Result EncounterCorey Montez DO Work Phone: noms External Department UnsolicitedStart: 12-11-2024 End: 37-99-1434dnmuqknsapRONNX FAZIONot AvailableStart: 12-11-2024 End: 64-61-5685Kgbicf outpatient visit 15 minutesCorey Montez DO Work Phone: noms Piyush OBGYNComment on above:19 weeks gestation of ([facility]); Second trimester ([facility]); Thyroid disease ; Multigravida of advanced maternal age in second trimester ([facility]); Gestational diabetes mellitus (GDM), antepartum, gestational diabetes method of control unspecified([facility])Start: 12-03-2024 End: 25-03-5903rycghbspwiBKBLNBOH BROGANProMedica Premier Health Atrium Medical Centertart: 12-03-2024 End: 36-46-7326Hsdrcl outpatient visit 25 minutesAlisa Saba OLERICULTURE PROFESSOR-ART HISTORY INSTRUCTOR Work Phone: [phone]-Zsmcv Medicine at [facility] Comment on above:Insulin controlled gestational diabetes mellitus (GDM) in second trimester (Primary Dx)Start: 12-03-2024 End: 17-11-2628Vkmzvusrb encounterAnni Abreu CMAMaternal- Medicine at [facility] Centertart: 11-20-2024 End: 98-80-4661Gfleog flowsheetCorey Montez DO Work Phone: NOMS BCP OBStart: 11-20-2024 End: 58-22-2504Jhdspj flowsheetCorey Montez DO Work Phone: NOMS BCP OBStart: 11-20-2024 End: 58-73-3324afdwsrpagmDNHEH FAZIONot AvailableStart: 11-20-2024 End: 23-16-0583Grjeyt outpatient visit 15 minutesCorey Montez DO Work Phone: NOMS Piyush OBGYNComment on above:Second trimester ([facility]); 16 weeks gestation of ([facility]); Screening, , for anatomic survey ([facility]); Vaginal discharge; Sinus headacheStart: 11-19-2024 End: 26-52-2100ucqrborqdeKyyntm M Frey RN Work Phone: [phone]-Tqahg Medicine at [facility] Comment on above:Gestational diabetes mellitus (GDM), antepartum, gestational diabetes method of control unspecified(Primary Dx)Start: 11-04-2024 End: 32-71-9952Ugqvq Syd Noyola MD Work Phone: [phone]-Tpqfp Medicine at [facility] Start: 10-30-2024 End: 55-32-5875Mdxush flowsheetCorey Montez DO Work Phone: NOMS BCP OBStart: 10-30-2024 End: 78-18-4046Sjfiqr flowsheetCorey Montez DO Work Phone: NOMS BCP OBStart: 10-30-2024 End: 04-82-2592Zlvtpj outpatient visit 15 minutesCorey Montez DO Work Phone: NOMS BCP OBComment on above:Second trimester ([facility]-HCC); 13 weeks gestation of ([facility]-H[facility]); Thyroid disease ; Multigravida of advanced maternal age in second trimester ([facility]-HCC); Gestational diabetes mellitus (GDM), antepartum, gestational diabetes method of control unspecified([facility]-HCC); Elevated glucose tolerance testStart: 10-30-2024 End: 42-10-2738pcpszrdhyfTOSQH FAZIONot AvailableStart: 10-29-2024 End: 79-67-9058InalqgQiavquBunny Paz APRN.CNP Work Phone: Hematology/OncologyComment on above:Refill Request Start: 10-28-2024 End: 88-96-2248Yjfqvzo encounter Valentine Negrete APRN.CNP Work Phone: Hematology/OncologyStart: 10-28-2024 End: 01-05-0368nlqlrshffdTdsgaJuju Negrete APRN.CNP Work Phone: Hematology/OncologyComment on above:Primary hypercoagulable state (HCC) (Primary Dx); CVA, old, speech/language deficit; Cerebral hyponatremia; Personal history of TIA (transient ischemic attack)Start: 10-28-2024 End: 26-10-5957Sepmjmoxb Gregoria Negrete APRN.CNP Work Phone: Cancer Appts MCComment on above:ResultsStart: 10-24-2024 End: 07-93-2327Iczvpygvq Gregoria Negrete APRN.CNP Work Phone: Hematology/OncologyComment on above:Lab OrdersStart: 10-20-2024 End: 89-37-1507JpqypxSxtho Abhyankar MD Work Phone: Hematology/OncologyComment on above:Refill Request Start: 10-13-2024 End: 51-14-1022SgldfdDell Khan RNMaternal- Medicine at [facility] HealthComment on above:Gestational diabetes mellitus (GDM), antepartum, gestational diabetes method of control unspecified(Primary Dx)Start: 10-06-2024 End: 89-93-0155Jvxzbdrgi Result EncounterCorey Montez DO Work Phone: noms External Department UnsolicitedStart: 10-06-2024 End: 19-29-2494Ylckhwdsm Result EncounterCorey Montez DO Work Phone: noms External Department UnsolicitedStart: 10-02-2024 End: 52-98-3323juucfsxmwdCRFKR FAZIONot AvailableStart: 10-02-2024 End: 65-84-8674Padfeo outpatient visit 5 minutesNoms Bcp Ob Montez NurseNOMS BCP OBComment on above:GA: 9g3fLmelt: 09-11-2024 End: 52-27-2771Vfdytqjug Result EncounterCorey Montez DO Work Phone: noms External Department UnsolicitedStart: 09-11-2024 End: 04-90-8076Txvpcrzxb Result EncounterCorey Montez DO Work Phone: noms External Department UnsolicitedStart: 09-09-2024 End: 32-59-6038yeqddmztarMrmwk A KAPLEFacility:Val PCStart: 09-09-2024 End: 20-15-9206Bbmptmt encounter procedureScomike CASAS [phone]-KajnsCleveland Clinic [facility] Start: 09-07-2024 End: 57-01-1464ekomvraluiSnamo M. DempseyFacility:GIL NorwalkStart: 09-02-2024 End: 45-48-0357Sdrzgeodb encounterNatmurphy Johnson RNHematology/OncologyComment on above:Patient UpdateStart: 08-26-2024 End: 40-45-7170Lgsogrjvm encounterKristofer Calix MD Work Phone: Hematology/OncologyComment on above:Lab OrdersStart: 08-23-2024 End: 92-75-3718jncbstvbgbOcisg R FAZIOFacility:FTMCStart: 08-23-2024 End: 15-35-7047Rxlswtb encounter procedureCorecarmen Palmer [facility] Start: 07-25-2024 End: 00-81-8649TdeaizCtpsz Abhyankar MD Work Phone: Hematology/OncologyComment on above:Refill Request Start: 07-24-2024 End: 86-77-8384Cgxcgk flowsheetCorey Montez DO Work Phone: noms BCP OBStart: 07-24-2024 End: 31-18-8704Qlcrug flowsheetCorey Montez DO Work Phone: noms BCP OBStart: 07-24-2024 End: 70-61-1755ociqkngycoWXTNR FAZIONot AvailableStart: 07-24-2024 End: 53-26-6987Mmdrje outpatient visit 15 minutesCorey Montez DO Work Phone: noms BCP OBComment on above:Irregular menstrual cycle Start: 07-09-2024 End: 61-66-9285iuowynljzvIcvfznr A VisciFacility:FTMCStart: 07-09-2024 End: 65-62-2232Iqtumhz encounter procedureInez [facility] Start: 07-08-2024 End: 56-14-0156Cjv-admission assessmentInez [facility] Start: 07-07-2024 End: 56-77-8864ygxqrbndpfDbbsa A KAPLEFacilсветлана:Val PCStart: 06-30-2024 End: 42-80-0356mdfdrngpvtGjshl A KAPLEFacility:Val PCStart: 06-30-2024 End: 86-14-3001Wjehgtm encounter procedureScoimke CASAS [phone]-KjcwhCleveland Clinic [facility] Start: 06-23-2024 End: 63-42-6389Oiuvml outpatient visit 15 minutesCorey Montez DO Work Phone: noms [facility] OBComment on above:Vaginal bleeding; Dizziness; Abnormal TSH; Vaginal discharge; Pelvic pain in femaleStart: 06-23-2024 End: 69-25-3801hlpwcuxzytUGKKD FAZIONot AvailableStart: 06-23-2024 End: 63-98-7696Ecnlfrlz Result EncounterCorey Montez DO Work Phone: noms External Department UnsolicitedStart: 06-23-2024 End: 06-46-8863Whjnzvix Result EncounterCorey Montez DO Work Phone: noms External Department UnsolicitedStart: 06-19-2024 End: 22-04-4467jlhlywcjfsZPHZOA R CIERSEZWSKIFacility: MilanStart: 06-19-2024 End: 64-43-7224Jvcqqrf encounter procedureJACLYN Jeanine BACA [phone]-LqlkqC[facility] Clinic [facility] Start: 06-12-2024 End: 92-21-5713kwhtrkokfcNsbal R SHYLAZIOFacility:FTMCStart: 06-12-2024 End: 55-54-5366Gsgbwub encounter procedureCorey R MONTEZ [facility] Start: 06-09-2024 End: 23-51-9909vdlpwctiktVcens A KAPLEFacility:Val PCStart: 06-09-2024 End: 99-72-5996Cfbehyi encounter procedureCorey R MONTEZ [facility] Start: 06-06-2024 End: 36-41-5989otlidielndCUCCVL A LEHMANNFacility:FT BellevueStart: 06-02-2024 End: 84-94-6984joemditcvmWKUXS FAZIONot AvailableStart: 06-02-2024 End: 66-64-4553Phmkon outpatient visit 15 minutesCorey Montez DO Work Phone: noms BCP OBComment on above:Follow-up visit after miscarriage; Abnormal TSH; History of thyroid diseaseStart: 05-28-2024 End: 01-75-2874Pudauqtvy encounterKristofer Calix MD Work Phone: Cancer Appts MCStart: 05-28-2024 End: 45-03-9285Kvqjpg outpatient visit 25 minutesKristofer Calix MD Work Phone: Hematology/OncologyComment on above:Primary hypercoagulable state (HCC) (Primary Dx); CVA, old, speech/language deficit; Iron deficiency anemia secondary to blood loss (chronic); Vitamin D deficiency; Antiphospholipid antibody syndrome (HCC)Start: 05-28-2024 End: 63-05-6963oghfrcrkjnBABQP ABHYANKARFacility:[facility] Hospitaltart: 48-10-6071yiindrmmkiTfidf A KAPFacility:[place] PCStart: 05-14-2024 End: 22-44-6102Rkiyaoqvx encounterNatmurphy Johnson RNHematology/OncologyComment on above:Patient UpdateStart: 05-10-2024 End: 03-47-9556Nvnedigfd Result EncounterCorey Montez DO Work Phone: noms External Department UnsolicitedStart: 05-10-2024 End: 28-91-4897Wczxmhljl Result EncounterCorey Montez DO Work Phone: noms External Department UnsolicitedStart: 05-10-2024 End: 70-03-2734vjcprjqhjmNdygh FazioFiSelect Medical [facility] Work Phone: Start: 05-10-2024 End: 19-91-9346Ktnnbnxq ReferredCorey Montez DO Work Phone: [facility] Path Spec [place] HospStart: 05-06-2024 End: 47-18-5965fkiockwpuaAOHQV FAZIONot AvailableStart: 05-06-2024 End: 93-09-7119Irxzas flowsheetCorey Montez DO Work Phone: noms BCP OBStart: 05-06-2024 End: 56-17-9577Ltnten flowsheetCorey Montez DO Work Phone: NOLA BCP OBStart: 05-06-2024 End: 68-81-1993igqbjneqprNKOCX FAZIONot AvailableStart: 05-06-2024 End: 75-99-4474Pigpsq outpatient visit 15 minutesCorey Montez DO Work Phone: noms BCP OBComment on above:14 weeks gestation of ; Second trimester ; Confirm viability with history of miscarriage, ultrasoundStart: 04-28-2024 End: 70-11-6535VnsagiPbuai Abhyankar MD Work Phone: Hematology/OncologyComment on above:Refill Request Start: 04-12-2024 End: 74-61-4664Qxjkzkigd Result EncounterCorey Montez DO Work Phone: noms External Department UnsolicitedStart: 04-12-2024 End: 19-74-2595Wspoaekwk Result EncounterCorey Montez DO Work Phone: noms External Department UnsolicitedStart: 04-05-2024 End: 14-03-4458Jjdfgbydy Result EncounterCorey Montez DO Work Phone: noms External Department UnsolicitedStart: 04-05-2024 End: 12-11-4567Cpgphkyhn Result EncounterCorey Montez DO Work Phone: noms External Department UnsolicitedStart: 04-04-2024 End: 05-41-4059umrfnyofhpGUYEY FAZIONot AvailableStart: 04-04-2024 End: 20-72-8550Gfyxni outpatient visit 5 minutesNoms Bcp Ob Montez NurseNOMS BCP OBComment on above:GA: 8l5uSlzia: 03-01-2024 End: 38-09-4006eceeywvefbSyoga R FAZIOFacility:FTMCStart: 03-01-2024 End: 43-78-8809Kyrzukj encounter procedureCorey R MONTEZ [facility] Start: 02-27-2024 End: 09-59-9631uphzizapefBxgjv R FAZIOFacility:FTMCStart: 02-27-2024 End: 00-35-5433Pwdoprhul encounterNatmurphy Johnson RNHematology/OncologyComment on above:Patient QuestionStart: 02-25-2024 End: 30-72-7875ekvhnctzkeUlolv R FAZIOFacility:FTMCStart: 02-25-2024 End: 35-43-6132Zaoqlnl encounter procedureCorey R MONTE[facility] Start: 02-23-2024 End: 79-96-3138wrnevvxbqlAvfmu A KAPLEFacility:FTMCStart: 02-23-2024 End: 76-30-6220Qhhzrnp encounter procedureCorey R MONTEZ [facility] Start: 02-05-2024 End: 54-73-3688mwblwmtlgpBrcez A STEPHANILEFacility:Val PCStart: 02-05-2024 End: 14-63-3100Neqvpry encounter procedureScott A KAPLE [phone]-EscfiCleveland Clinic [facility] Start: 02-05-2024 End: 08-83-0399Tfvq adult monitoring check doneScott A STEPHANILE [phone]-BxfkfC[facility] Clinic [facility] Start: 02-02-2024 End: 66-55-9835cpepkpqkcoHzpjtb GudimellaFacility:GIL TaylorkStart: 02-02-2024 End: 39-73-6922Hwpxckv encounter procedurePreeti Merlincatiesherry [phone]-XodkbC[facility] Clinic [facility] Start: 32-43-1376wyukomfywcQsvjy A STEPHANI Facility:[place] PCStart: 01-24-2024 End: 82-34-7737WekeluSfqaz Abhyankar MD Work Phone: Hematology/OncologyComment on above:Refill Request Start: 01-02-2024 End: 23-54-2474Ldakiiyve encounterKristofer Calix MD Work Phone: Cancer Appts MCComment on above:ResultsStart: 01-02-2024 End: 42-45-8046Rbxocp outpatient visit 15 minutesKristofer Calix MD Work Phone: Hematology/OncologyComment on above:Iron deficiency anemia secondary to blood loss (chronic) (Primary Dx); Vitamin D deficiency; Malaise and fatigueStart: 12-17-2023 End: 13-04-8724Ubxyboqwn encounterNatalimaxim Johnson RNHematology/OncologyStart: 12-06-2023 End: 26-64-2677hotpoaikyjSvitnexxm L ClarkFacility:FTMCStart: 12-06-2023 End: 94-07-1051Ddxewug encounter procedureMonica Saba [facility] Start: 81-88-0136azdslbxlveSpksw A STEPHANI Facility:[place] PCStart: 11-29-2023 End: 49-10-5263aoykcplcapKbbfz Abhyankar MD Work Phone: Hematology/OncologyComment on above:Iron infusion side effects?Refill RequestIron deficiency anemia of (Primary Dx); Iron deficiency anemia secondary to blood loss (chronic)Start: 11-22-2023 End: 92-82-0920idbvugwemnPkukf Angelito Claudio Work Phone: Hematology/OncologyComment on above:Iron deficiency anemia of (Primary Dx); Iron deficiency anemia secondary to blood loss (chronic)Start: 11-15-2023 Telephone encounterFinancial Navigator Delgado Work Phone: Hematology/OncologyStart: 11-15-2023 End: 69-41-6414pfczznzmpvKjmvg Angelito Stew Work Phone: Hematology/OncologyComment on above:Iron deficiency anemia of (Primary Dx); Iron deficiency anemia secondary to blood loss (chronic)Start: 11-09-2023 End: 22-74-1597Eaaglqh encounter procedureElirachna Saba [phone]-HyfkgC[facility] Clinic [facility] Start: 11-09-2023 End: 31-44-4821Upfwhq WorkLori Penelope FLYNNematology/OncologyStart: 11-05-2023 Telephone encounterKristofer Calix MD Work Phone: Cancer Appts MCComment on above:AppointmentStart: 10-23-2023 End: 09-28-8917iwbsxroexdImtbwzm Grace MisslerFacility:Val PCStart: 10-23-2023 End: 03-69-1100Vkqgipz encounter procedureLourdes Garber [phone]-VoyfjCleveland Clinic [facility] Start: 09-28-2023 End: 69-28-7545Cslwqazwx department patient visitBenny Uribe [facility] Start: 09-28-2023 End: 51-77-8246oybvlkwnviSSDelma DUNHAMFacility:GIL TaylorkStart: 09-28-2023 End: 56-36-8146Wgbjqvr encounter procedureJANET DUNHAM [phone]-CjxzxCleveland Clinic [facility] Start: 35-81-4602Fmcuqykty encounterKristofer Calix MD Work Phone: Canrqg Appts MCComment on above:Appointment RescheduledStart: 09-21-2023 End: 99-11-0952nftlaigslbAgxhz Abhyankar MD Work Phone: Hematology/OncologyComment on above:Iron deficiency anemia secondary to blood loss (chronic) (Primary Dx)Start: 09-21-2023 End: 41-64-1573Ytzlrndrodgl consultation with Song Calix MD Work Phone: Hematology/OncologyStart: 08-03-2023 End: 45-51-0408fjvmmjcoqhEwcne A KAPLEFacility:Val PCStart: 08-03-2023 End: 80-55-9125Hxnabxz encounter procedureScott Cecily CASAS [phone]-QthjlC[facility] Clinic [facility] Start: 06-29-2023 End: 52-04-4216xxbbzayjlnVpdys A KAPLEFacility:Val PCStart: 06-29-2023 End: 23-10-8035Ypkpsmx encounter procedureScott A KAPLE [phone]-VsemqC[facility] Clinic [facility] Start: 37-15-8391zlezoyaqscKgjgecu Powell financial services associate/OncologyComment on above:Lab results/recommendationsStart: 06-19-2023 E-mail encounter from Jose Carlos Johnson RNSANDUSKYStart: 06-15-2023 End: 42-11-1370Evijuk outpatient visit 25 minutesKristofer Calix MD Work Phone: Hematology/OncologyComment on above:Vitamin D deficiency (Primary Dx); Hypercalcemia; Iron deficiency anemia secondary to blood loss (chronic)Start: 06-15-2023 Telephone encounterKristofer Calix MD Work Phone: Cancer Appts MCComment on above:ResultsStart: 60-83-7401Qemihplmt encounterKristofer Calix MD Work Phone: Hematology/OncologyComment on above:Lab OrdersStart: 26-39-1376Wdpzwjimi encounterKristofer Calix MD Work Phone: Cancer Appts MCComment on above:Future Appointment Start: 05-31-2023 End: 44-65-0209zdlnuxrdrhPhwow Abhyankar MD Work Phone: Hematology/OncologyComment on above:Primary hypercoagulable state (HCC) (Primary Dx); CVA, old, speech/language deficit; Hypercalcemia; Vitamin D deficiency; Iron deficiency anemia secondary to blood loss (chronic); Malaise and fatigueStart: 05-31-2023 End: 35-87-7137Rnewgtkqhanq consultation with Song Calix MD Work Phone: SANDUSKYStart: 05-25-2023 End: 68-28-4322muhxbtdzrkXoxfx A KAPLEFacility:Val PCStart: 05-25-2023 End: 25-90-9875Ihfwafy encounter Coreen CASAS [phone]-AhrqqC[facility] Clinic [facility] Start: 05-01-2023 End: 63-17-9643mlhtofujomFwtmx A KAPLEFacility:FTMCStart: 04-27-2023 End: 04-44-4628Hzd Drop offSelissa CASAS [facility] Start: 04-27-2023 End: 17-96-9995xafnkytpfuNigjz A KAPLEFacility:FTMCStart: 04-25-2023 End: 10-46-1055jpcedxzofbBxtb L SchwabFacility:FT FM BellevueStart: 03-19-2023 End: 48-90-0176hgmbbgflahKzobiVernell Calix MD Work Phone: Hematology/OncologyComment on above:Primary hypercoagulable state (HCC) (Primary Dx); Iron deficiency anemia secondary to blood loss (chronic); Vitamin D deficiency; CVA, old, speech/language deficit; Antiphospholipid antibody syndrome (HCC)Start: 03-19-2023 End: 66-38-1373Sklrzsaegdwe consultation with Song Calix MD Work Phone: SANDUSKYStart: 02-15-2023 End: 30-47-1898acoaeyvlphYhmwq A KAPLEFacility:[place] PCStart: 02-15-2023 End: 71-47-2971Nmhwuyn encounter procedureScomike CASAS [phone]-WofjfCleveland Clinic [facility] Start: 12-39-5268gsxlssanpkErdht A KAPLE Facility:[place] PCStart: 12-26-2022 End: 57-70-7227sqjwkvjdqyPjpdcqc Grace MisslerFacility:[place] PCStart: 12-26-2022 End: 68-81-8086Wwkliuh encounter procedureLourdes Garber [phone]-EsdeuC[facility] Clinic [facility] Start: 12-22-2022 End: 83-97-8886jsuumwfwxaCedfe Abhyankar MD Work Phone: Hematology/OncologyComment on above:Primary hypercoagulable state (HCC) (Primary Dx); Iron deficiency anemia of ; Iron deficiency anemia secondary to blood loss (chronic); Vitamin D deficiencyStart: 12-22-2022 End: 36-81-1761Rwlrpttlfcea consultation with Song Calix MD Work Phone: SANDUSKYStart: 49-87-5424Tektwidmi encounterKristofer Calix MD Work Phone: Cancer Appts MCComment on above:AppointmentStart: 10-20-2022 End: 07-00-9515Yjqshku encounter procedureScott A KAPLE [phone]-YymfiC[facility] Clinic [facility] Start: 09-28-2022 End: 18-90-2505jiowlkcmcyMbvorVernell Calix MD Work Phone: Hematology/OncologyComment on above:Primary hypercoagulable state (HCC); CVA, old, speech/language deficit; Cerebral hyponatremiaStart: 09-28-2022 End: 63-77-5983Jnmfozylrecv consultation with Song Calix MD Work Phone: SANDUSKYStart: 09-26-2022 End: 40-52-8668Yciosmd encounter procedureKristofer Calix [facility] Start: 80-98-5102Ftscmobzc encounterValeri Yeung RN Hematology/OncologyComment on above:OrdersStart: 09-05-2022 End: 18-77-8462Iaieyrb encounter procedureCorey R MONTEZ [facility] Start: 08-07-2022 End: 56-49-3777Nhnecwx encounter procedureCorey R MONTEZ [facility] Start: 07-27-2022 End: 28-45-1070Skmmqu outpatient visit 25 minutesKristofer Calix MD Work Phone: Hematology/OncologyComment on above:Primary hypercoagulable state (HCC) (Primary Dx); Iron deficiency anemia secondary to blood loss (chronic); CVA, old, speech/language deficitStart: 49-21-5247XuesbbMyhfa Abhyankar MD Work Phone: Hematology/OncologyComment on above:Refill Request Start: 05-16-2022 End: 99-48-2998cofiyybgpeVP WILTON FAZIOFacility:X4Ynead: 05-10-2022 End: 45-47-7728xxdibwgqamQU WILTON FAZIOFacility:E0Ydqlf: 05-08-2022 End: 12-71-0228Kqfywhiygt and management of inpatientDR KALPANA THOMAS Facility:Y3Grfav: 05-05-2022 End: 31-97-5159wcwmjpqloeQG KALPANA THOMASFacility:F3Fabwz: 05-01-2022 End: 08-70-9606eiwanvnjffZY WILTON FAZIOFacility:G7Kesdc: 04-28-2022 End: 25-08-7136aoxuligvwrBA WILTON FAZIOFacility:V7Vmzil: 04-24-2022 End: 42-02-5578drbrbonftoFA KALPANA THOMASFacility:N4Zyync: 04-20-2022 End: 52-26-9118qohphzklakBgptj 10 Ste[address] Work Phone: Hematology/OncologyComment on above:Iron deficiency anemia secondary to blood loss (chronic) (Primary Dx); Iron deficiency anemia of pregnancyStart: 04-19-2022 End: 88-11-2321mdqvlxwfexIY WILTON FAZIOFacility:N4Catjq: 04-14-2022 End: 77-14-7087vhtuwrteqhOW WILTON FAZIOFacility:D0Zzczm: 04-07-2022 End: 82-29-7857whuuegscfpKA WILTON FAZIOFacility:W5Aayem: 99-77-2357ZfspccTyvvgSalvador Calix MD Work Phone: Hematology/OncologyComment on above:Refill Request Start: 04-05-2022 End: 05-49-4354qrievzchzlOcleb 11 Stew Work Phone: Hematology/OncologyComment on above:Iron deficiency anemia secondary to blood loss (chronic) (Primary Dx); Iron deficiency anemia of pregnancyStart: 48-77-4436Bssomgrxn Foster Gonzalez Hematology/OncologyComment on above:Appointment; Patient Question; Medication Question; OrdersStart: 03-31-2022 End: 47-39-3277fhfuwazavvRB WILTON FAZIOFacility:H6Blyix: 03-27-2022 End: 17-70-5197wajulbsqwwFuarhVernell Calix MD Work Phone: Hematology/OncologyComment on above:Iron deficiency anemia secondary to blood loss (chronic); Iron deficiency anemia of pregnancyStart: 03-27-2022 End: 02-98-1703Ibydcfv encounter procedureKristofer Calix MD Work Phone: SANDUSKYStart: 04-22-1058Rlmirbwiq encounterKristofer Calix MD Work Phone: Cancer Appts MCComment on above:ResultsStart: 03-24-2022 End: 92-24-4798qxdawmseewYB WILTON FAZIOFacility:C4Jzyuz: 03-16-2022 End: 33-67-6515wbcbpfzcwfIV WILTON FAZIOFacility:I7Dslza: 02-24-2022 End: 92-59-8227ggxrydwsuyTR WILTON FAZIOFacility:Z9Heabz: 02-14-2022 End: 15-99-0089ihzpqrbnnyQG WILTON FAZIOFacility:T3Kgmbf: 01-30-2022 End: 10-92-4115rjdmuchazmQlaqwVernell Calix MD Work Phone: Hematology/OncologyComment on above:Primary hypercoagulable state (HCC) (Primary Dx); CVA, old, speech/language deficit; Antiphospholipid antibody syndrome (HCC); Anemia, unspecified typeStart: 01-30-2022 End: 21-18-9719Wniawtx encounter Dionicio Calix MD Work Phone: SANDUSKYStart: 01-24-2022 End: 11-42-5691jrzszgrutsOU WILTON FAZIOFacility:R4Xkyau: 01-24-2022 End: 46-87-0167gfuqbinatfIQ WILTON FAZIOFacility:I6Fyifx: 01-07-2022 End: 46-16-9986pzczswxmafRX WILTON FAZIOFacility:D2Emxtu: 83-73-6552QikxliFbvfupAwilda Pope RN Work Phone: Hematology/OncologyComment on above:Refill Request Start: 12-28-2021 End: 79-51-9331ygjzruycflWQ WILTON FAZIOFacility:O9Pleuo: 11-21-2021 End: 63-54-9868fiezkcdynjVEUMI A KAPLEMercy Healthtart: 11-21-2021 End: 18-98-0523Zhrhlywhif hospital visit by Sean Casas Work Phone: stVZ LaboratoryStart: 11-14-2021 End: 61-40-5810Evvxbhs encounter procedureSMercer [facility] Start: 18-55-7260phsdxytfkkZU WILTON FAZIOFacility:H1 Start: 10-25-2021 End: 80-20-8337kumqobthkoYD WILTON FAZIOFacility:A7Lsrcw: 52-86-3946XgrkoqPvzpj Nickelson RNHematology/OncologyComment on above:Refill RequestStart: 09-23-2021 End: 53-16-6471epjhkehzboAR WILTON FAZIOFacility:I9Npbmd: 27-83-7499Lmtgzyqhs encounterMeme Easton RNHematology/OncologyComment on above:Medication QuestionStart: 54-76-7874Isiszdxbd encounterMeme Easton financial services associate/OncologyComment on above:Patient QuestionStart: 09-01-2021 End: 69-17-9158kdpiscyihyDO WILTON FAZIOFacility:O9Bflfv: 08-31-2021 End: 91-19-2212Rrpxvzk encounter Coreen CASAS [facility] Start: 08-29-2021 End: 22-87-8935wgzmmagwpbGN WILTON FAZIOFacility:Z9Glrji: 08-26-2021 End: 35-25-4378ijnwnthtpeWS WILTON FAZIOFacility:F2Govou: 08-24-2021 End: 98-33-8840nycsskxsfcTO WILTON FAZIOFacility:K0Tkrxw: 96-71-6020Uhvtlapcz encounterMeme Easton RNHematology/OncologyComment on above:Patient Question Start: 08-19-2021 End: 77-67-9316Laancja encounter procedurePERNELL LONGORIA [facility] Start: 08-19-2021 End: 50-77-6448Nrg Drop offPERNELL LONGORIA [facility] Start: 08-19-2021 End: 46-98-9959Kdfmjlv encounter procedurePERNELL LONGORIA 079-6139Hfegiq-OrmhkC[facility] [place] Start: 30-70-5331Lxpcdjrmz encounterKristofer Calix MD Work Phone: Cancer Appts MCComment on above:Future Appointment Start: 08-01-2021 End: 48-23-5765Etacgoc evaluation of patient and reportMa Nurse Delgado Golden Work Phone: Hematology/OncologyComment on above:Infective urethritis (Primary Dx)Start: 73-77-2981Mszkazi encounter procedureHaseeb MorelFacility:[facility] BStart: 21-44-1036Pibvqch encounter procedure ERIKA LONDONFacility:9459Start: 05-25-2017 End: 73-01-0068ObpzqfnlftVWKGJ R [facility] Procedures DateProcedureProcedure DetailPerforming ClinicianStart: 19-81-9182RM OB BPP W NON-STRESSCorey Montez DO Work Phone: Start: 14-07-8415ZL OB BPP W NON-STRESSCorey Montez DO Work Phone: Start: 90-97-4170Abymy dip stick/tablet rgnt non-auto w/o micrscpCorey Montez DO Work Phone: Start: 74-32-4060OH OB BPP W NON-STRESSCorey Montez DO Work Phone: Start: 74-49-9803EQ OB GROWTHCorey Montez DO Work Phone: Start: 64-13-1365LZA CBC WITH AUTO DIFFCorey Montez DO Work Phone: [phone]: 74-24-2599Dhkuj dip stick/tablet rgnt non-auto w/o micrscpCorey Montez DO Work Phone: Start: 37-52-3265Jxmye dip stick/tablet rgnt non-auto w/o micrscpCorey Montez DO Work Phone: Start: 97-97-9874Vylly dip stick/tablet rgnt non-auto w/o micrscpCorey Montez DO Work Phone: Start: 24-05-9289FO OB CERVICAL LENGTHCorey Montez DO Work Phone: Start: 72-25-3840GGM UA (CLEAN/CATCH) 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 IND.Wilton Montez DO Work Phone: Start: 56-40-4690GYG THYROID STIM HORMONECorey Montez DO Work Phone: Start: 22-15-4287Gacpj dip stick/tablet rgnt non-auto w/o micrscpCorey Montez DO Work Phone: Start: 47-10-6031Wmxcs dip stick/tablet rgnt non-auto w/o micrscpCorey Montez DO Work Phone: Start: 14-25-6229Mklzggg quantitative blood xcpt reagent stripCharles Cortes MD Work Phone: Start: 92-31-2145Cmypq dip stick/tablet rgnt non-auto w/o micrscpCorey Montez DO Work Phone: Start: 30-13-9585Kevqv of thyroid stimulating hormone tshNot In System Ref ProvStart: 83-39-5407Yypvzytl screenMukul Noyola MD Work Phone: Start: 51-16-6654Cgyu scrn 1+ class nonchromoNot In System Ref ProvStart: 35-25-8741Ruxoazjuji glycosylated p3yAobnfrnc Provider ExternalStart: 53-16-3359ENC 1&2 AB/AG SCREEN (P24 AG)Not In System Ref Prov Start: 20-91-3549Mtkp ia hepatitis b surface antigenNot In System Ref ProvStart: 70-55-8426ELXO AND SCREENNot In System Ref ProvStart: 89-69-8590TZB CBC WITH AUTO DIFFCorey Montez DO Work Phone: Start: 12-83-5510Crqwk dip stick/tablet rgnt non-auto w/o micrscpCorey Montez DO Work Phone: Start: 46-88-9124IS OB TRANSVAGINALCorey Montez DO Work Phone: Start: 06-66-5808Tpbak test visual color cmprsn methsCorey Montez DO Work Phone: Start: 13-96-4809RITXSCDEF VAGINITIS (HTRX)Wilton Montez DO Work Phone: Start: 86-26-3560Oeizu dip stick/tablet rgnt non-auto w/o micrscpCorey Montez DO Work Phone: Start: 39-46-8546RH PELVISCorey Montez DO Work Phone: Start: 06-12-8345Yf uterus limited 1/> fetusesCorey Montez DO Work Phone: Start: 52-15-2558PQZ CBC WITH AUTO DIFFCorey Montez DO Work Phone: Start: 53-28-0277LSC IMMUNOGLOBULIN GCorey Montez DO Work Phone: Start: 97-75-9005SLX IMMUNOGLOBULIN MCorey Montez DO Work Phone: Start: 63-33-4894EUE MISCELLANEOUS TESTCorey Montez DO Work Phone: Start: 52-16-0572VSD APTTCorey Montez DO Work Phone: Start: 36-25-2065KLDHUJ V LEIDEN MUTATIONCorey Montez DO Work Phone: Start: 73-26-6407MGMWD HOMOCYSTEINECorey Montez DO Work Phone: Start: 76-68-4329OEIL FIBRINOGENCorey Montez DO Work Phone: Start: 93-05-1521NUWKGMS C-FUNCTIONALCorey Montez DO Work Phone: Start: 81-12-4761SAQBEFF S-ANTIGENCorey Montez DO Work Phone: Start: 10-14-4651ZCTRIB PROTHROMBIN TIME INR W/O COUM Wilton Montez DO Work Phone: Start: 47-68-5954FJP ANTITHROMBIN ACTIVITYCorey Montez DO Work Phone: Start: 74-92-1071Ealqx dip stick/tablet rgnt non-auto w/o micrscpCorey Montez DO Work Phone: Start: 06-03-6754FAB TESTCorey Montez DO Work Phone: Start: 75-98-1130PCB DRUG SCREEN RAPID (URINE)Wilton Montez DO Work Phone: Start: 75-98-9536VN OB TRANSVAGINALCorey Montez DO Work Phone: Start: 04-04-2024 End: 83-19-5727Ewrhz dip stick/tablet rgnt non-auto w/o micrscpCorey Montez DO Work Phone: Start: 58-44-1581Zkrnwod refused by patient Immunization not carried out because of patient decisionNoms NurseStart: 84-84-6728Tcodozxv of Products of Conception, External ApproachDR WILTON HERRMANN Start: 91-65-7800Fydp bld gluc mntr dev cleared fda spec home useCcf Provider Start: 25-76-9404Pipbyihfuad observation [Identifier] in Cervix by Cyto stain Wilton Herrmann DO Work Phone: Start: 11-21-2021 End: 45-17-8439Oeztg-fetoprotein serumScanning Provider ExternalStart: 11-21-2021 End: 60-01-1123MTWWHKI STUDY NON-PROMEDICAScanning Provider ExternalStart: 00-05-5557ZIYEVOVJUYGPI TESTINGSraubrie Mullins MD Work Phone: Start: 83-40-2695Welhm depression screening assessment Nevin Golden Work Phone: Start: 80-18-7403VEX CULTUREDHRUV PATELStart: 65-90-6915PXQVUYDKC PATELStart: 77-87-3173QOA CELL COUNT WITH DIFFERENTIALDHRUV PATELStart: 50-08-0662QODZBNQ SIMPSON VIRUS PCRDHRUV PATELStart: 74-97-9623WTVIHRT, CSFDHRUV PATELStart: 48-00-8931AXMDGW BASIC PROTEIN, CSFDHRUV PATELStart: 21-64-9138QELARCQPHXR BANDINGDHRUV PATELStart: 48-95-4861JBMLTDE, CSFDHRUV MONGE Start: 94-80-3774CLMYPCV-INRDHRUV PATELStart: 39-80-4661Ulyjlo puncture lumbar diagnosticDHRUV PATELStart: 16-00-5702FDDJZSAOKMSEGVDJ ANTIBODY PANELDHRUV MONGE Start: 69-45-5909WMKFOXOXQKY AB IGG, IGM, IGADHRUV PATELStart: 49-03-0541JICVIIJ PATELStart: 90-82-9506MUGCLMKFFKHY, SERUMDHRUV PATELStart: 66-32-4860EIGJ ARUP 1DHRUV PATELStart: 09-84-3382PXIAPIHJJLY PATELStart: 11-37-9675IUGBMDIGHXNK PATELStart: 00-41-9368Qjbkmo of breastDERIK SIDELL Start: 11-81-6360Xyesjuounn of wisdom toothDERIK SIDELL endoscopy for ovarian cysts to drainDERIK SIDELL Vaccine refused by patientCOVID-19 vaccine dose declined( Confirmed )PERNELL SIDELL Plan of Treatment DateCare ActivityDetailAuthorStart: 32-85-1172QYG Vaccine (1 - 1-dose 75+ series)RSV Vaccine (1 - 1-dose 75+ series)[facility]: 43-78-1017Cpcgc BMI ScreeningAdult BMI ScreeningMiddletown Hospital SystemStart: 97-08-2131Paqhhdc ScreeningTobacco ScreeningMiddletown Hospital SystemStart: 45-29-7585Kxgqkjq ScreeningTobacco ScreeningMiddletown Hospital SystemStart: 01-05-2026 End: 38-26-2187ZZ MFM with or without consultUS MFM with or without consult Imaging Routine Multigravida of advanced maternal age in second trimester Antiphospholipid syndrome complicating , antepartum Gestational diabetes mellitus (GDM) in second trimester controlled on oral hypoglycemic drug AMA (advanced maternal age) mxqudoffynsw72+, second trimester Hypothyroidism, unspecified type History of stroke History of loss in prior , currently in second trimester Hypothyroidism affecting in second trimester Family history of autism Hyponatremia Expected: 01/05/2026 (Approximate), Expires: 01/05/2026ProAbsio Work Phone: comment on above:Expected: 01/05/2026 (Approximate), Expires: 01/05/2026Start: 60-30-7254Ddpxg BMI ScreeningAdult BMI Screening [facility] SystemStart: 22-75-1081Aziwoky ScreeningTobacco Screening [facility] SystemStart: 50-29-0863Ssyri BMI ScreeningAdult BMI Screening [facility] SystemStart: 04-07-2025 End: 94-66-7524Xxjcskoblwtb consultation with zmplxzy0604/07/2025 1:30 PM EST Telemedicine Maternal- Medicine at [facility] [address] [facility] [place] [phone] Roxana Mays PA-C [address] [place] [address] [facility]: 03-17-2025 End: 03-76-3846Ympjdyeawehc consultation with kucwwib9403/17/2025 8:30 AM EST Telemedicine [facility] Rheumatology, A Department of [address] [address] Sam Callahan MD [address] [address] [facility] HospitalStart: 03-10-2025 End: 77-80-8869Hqbvdvt encounter ckpyoemcq78/11/2025 9:50 AM EST Routine NOMJaylan COLVIN [address] [place], [id number] Wilton Herrmann DO [address] [address] NOMS Piyush OBGYNStart: 03-10-2025 End: 92-43-4269Zyxpelpitccj consultation with obhxxyo2803/10/2025 8:00 AM EST Telemedicine Maternal- Medicine at [facility] [address] [facility] [place] [phone] Sana Palma MD [address] [place] [address] [facility]: 48-44-6083YAP ( or age 60+ yrs) (1 - Risk 1-dose series)RSV ( or age 60+ yrs) (1 - Risk 1- dose series)[facility] SystemStart: 03-02-2025 End: 74-72-3841Hkniob-up yvijbngaq88/03/2025 11:30 AM EST Visit (SP) Office Hematology/Oncology [address] [place] [address] Katherine Negrete APRN.ART HISTORY INSTRUCTOR [address] [place] [address] 2 month follow upHematology/OncologyComment on above:2 month follow upStart: 03-02-2025 End: 82-66-1596Uzltcvi encounter mhuourucz82/03/2025 11:15 AM EST Office Visit [facility] [address] [place] [address] labNortTrinity Health [facility]ston Hospital LaboratoryComment on above:labStart: 02-23-2025 End: 42-04-9354Hzemhpq encounter ybqrpnbga57/27/2025 9:00 AM EDT Routine NOMJaylan ROBBGYN [address] [place], [id number] Wilton Herrmann DO [address] [place] [address] SHILOH [place] OBGYNStart: 02-18-2025 End: 68-46-2217QOV W Auto Differential panel - BloodCOMPLETE BLOOD COUNT AND DIFFERENTIAL Lab Routine 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) Vitamin D deficiency Primary hypercoagulable state (HCC) Expected: 02/18/2025, Expires: 05/20/2025leveland ClinicComment on above:Expected: 02/18/2025, Expires: 05/20/2025Start: 02-18-2025 End: 79-62-8169Xqmmpbvbuyovz metabolic 2000 panel - Serum or PlasmaCOMPREHENSIVE METABOLIC PANEL Lab Routine Antiphospholipid antibody positive Iron deficiency anemiasecondary to blood loss (chronic) Vitamin D deficiency Primary hypercoagulable state (HCC) Expected: 02/18/2025, Expires: 05/20/2025leveland ClinicComment on above:Expected: 02/18/2025, Expires: 05/20/2025Start: 02-16-2025 End: 97-49-9094Suwrjys encounter procedureProMedica Rheumatology, A Department of [facility]ertart: 68-99-6830Fewtcdxkl for malignant neoplasm of cervixNOMS HealthcareStart: 02-09-2025 End: 84-54-1467AJ biophysical profile w non stress testUS biophysical profile w non stress test Imaging Routine Third trimester (HHS-HCC) 28 weeks gestation of (HHS-HCC) Anemia complicating childbirth (HHS-HCC) Anticoagulant long-term use Antiphospholipid antibody positive Blood pressure elevated without history of HTN Coagulation defect, unspecified (HHS-HCC) Expected: 02/09/2025 (Approximate), Expires: 08/10/2025 NOM[facility] HealthcareComment on above:Expected: 02/09/2025 (Approximate), Expires: 08/10/2025Start: 02-09-2025 End: 11-13-1501AP for pregnancyUS OB follow up transabdominal approach Imaging Routine Third trimester (HHS-HCC) 28 weeks gestation of (HHS-HCC) Anemia complicating childbirth (HHS-HCC) Anticoagulant long-term use Antiphospholipid antibody positive Blood pressure elevated without history of HTN Coagulation defect, unspecified (HHS-HCC) Expected: 02/09/2025, Expires: 06/12/2025NOMS HealthcareComment on above:Expected: 02/09/2025, Expires: 06/12/2025Start: 02-09-2025 End: 29-54-2865Gobrbwf encounter iaajibbql74/13/2025 10:30 AM EDT Routine SHILOH COLVIN [address] [facility] [place] [address] Wilton Herrmann DO [address] [place] [address] SHILOH HAMILTONtart: 02-06-2025 End: 14-83-4326Tdrxkuyfgxeq consultation with pmpoidq6102/06/2025 2:00 PM EDT Telemedicine Maternal- Medicine at [facility] [address] [place] [address] Mukul Noyola MD [address] [facility], [address] [place] [address] [facility]: 02-05-2025 End: 55-32-4494Tkzoyhc encounter /09/2025 1:00 PM EDT Appointment [facility] [place] [address] [facility] [address] [place] [address] Maternal Medicine [place]fordStart: 02-01-2025 End: 20-36-9053Mpkq complete W/O contrastEcho complete W/O contrast Echocardiography Routine 22 weeks gestation of Antiphospholipid syndrome complicating , antepartum Multigravida of advanced maternal age in second trimester Expected: 02/01/2025 (Approximate), Expires: 01/01/2026 [facility] Work Phone: comment on above:Expected: 02/01/2025 (Approximate), Expires: 01/01/2026Start: 01-19-2025 End: 93-84-3926Kbngiyn encounter xhptpuenk31/22/2025 9:00 AM EDT Routine NOMJaylan COLVIN [address] [place], [id number] Wilton Herrmann DO [address] [facility] [address] [place] [address] SHILOH HAMILTONtart: 01-13-2025 End: 73-41-2969Rheicqhxlagm consultation with bwhmpvn0101/13/2025 10:00 AM EDT Telemedicine Maternal- Medicine at [facility] [address] [place] [place] [place] [address] Roxana Mays, PAPilyC [address] [place] [address], [id number] [facility]: 01-05-2025 End: 15-94-5262Mzznekq encounter ldgcgkpko32/08/2025 2:40 PM EDT Routine NOMS Piyush OBGYN [address] [place], [id number] Wilton Herrmann DO [address] [address] NOMS Piyush OBGYNStart: 01-05-2025 End: lead ECGECG 12 lead unit performed ECG Routine Thyroid disease Gestational diabetes mellitus (GDM), antepartum, gestational diabetes method of control unspecified (HHS-HCC) Multigravida of advanced maternal age in second trimester (HHS-HCC) Lightheaded Dizziness Expected: 01/05/2025 (Approximate), Expires:01/05/2026NOMS HealthcareComment on above:Expected: 01/05/2025 (Approximate), Expires: 01/05/2026Start: 01-05-2025 End: 27-63-7312Qmrrdxpnezbzep 2D completeEchocardiogram 2D complete Echocardiography Routine Thyroid disease Gestational diabetes mellitus (GDM), antepartum, gestational diabetes method of control unspecified (HHS-HCC) Multigravida of advanced maternal age in second trimester (HHS-HCC) Lightheaded Dizziness Expected: 01/05/2025 (Approximate), Expires: 01/05/2027[facility] Work Phone: comment on above:Expected: 01/05/2025 (Approximate), Expires: 01/05/2027Start: 01-01-2025 End: 28-14-5308Mbblpidgjpww consultation with rmpqgai4401/01/2025 2:30 PM EDT Telemedicine [facility] [place] [address] [facility] [address] [place] [address] Mukul Noyola MD [address] [facility] [place] [address] [facility] Medicine [place]Start: 01-01-2025 End: 90-80-6573KU MFM with or without consultUS MFM with [...] on above:Expected: 01/01/2025, Expires: 01/01/2026Start: 01-01-2025 End: 57-74-0699Icbltox encounter qabvnywax65/04/2025 1:00 PM EDT Appointment [facility] [place] [address] [address] Maternal Medicine [place]fordStart: 12-29-2024 COVID-19 Vaccine ( season)COVID-19 Vaccine ( season)[facility]Start: 51-12-6324Gflbsfloi vaccinationProMedica Toledo Hospitaltart: 12-24-2024 End: 75-14-6545WCC W Auto Differential panel - BloodCOMPLETE BLOOD COUNT AND DIFFERENTIAL Lab Routine Primary hypercoagulable state (HCC) CVA, old, spee ch/language deficit Cerebral hyponatremia Personal history of TIA (transient ischemic attack) Expected: 12/24/2024, Expires: 03/25/2025[facility] Work Phone: Comment on above:Expected: 12/24/2024, Expires: 03/25/2025Start: 12-24-2024 End: 81-19-4473Ugezhsfxh (Vitamin B12) [Mass/volume] in Serum or PlasmaVITAMIN B12 Lab Routine Primary hypercoagulable state (HCC) CVA, old, speech/language deficit Cerebral hyponatremia Personal history of TIA (transient ischemic attack) Expected: 12/24/2024, Expires: 03/25/2025leveland ClinicComment on above:Expected: 12/24/2024, Expires: 03/25/2025Start: 12-24-2024 End: 17-88-4845Gcuudjsibgfyj metabolic 2000 panel - Serum or PlasmaCOMPREHENSIVE METABOLIC PANEL Lab Routine Primary hypercoagulable state (HCC) CVA, old, speech/language deficit Cerebral hyponatremia Personal history of TIA (transient ischemic attack) Expected: 12/24/2024, Expires: 03/25/2025[facility] Comment on above:Expected: 12/24/2024, Expires: 03/25/2025Start: 12-24-2024 End: 20-51-8127Dfbzhino [Mass/volume] in Serum or PlasmaFERRITIN Lab Routine Primary hypercoagulable state (HCC) CVA, old, speech/language deficit Cerebral hyponatremia Personal history of TIA (transient ischemic attack) Expected: 12/24/2024, Expires: 03/25/2025[facility] ClinicComment on above:Expected: 12/24/2024, Expires: 03/25/2025Start: 12-24-2024 End: 52-68-6078Ejra and Iron binding capacity panel - Serum or PlasmaIRON AND TIBC Lab Routine Primary hypercoagulable state (HCC) CVA, old, speech/language deficit Cerebral hyponatremia Personal history of TIA (transient ischemic attack) Expected: 12/24/2024, Expires: 03/25/2025leveland ClinicComment on above:Expected: 12/24/2024, Expires: 03/25/2025Start: 12-23-2024 End: 752480-fxqcwgjjkwrtkd D3 [Mass/volume] in Serum or PlasmaVITAMIN D 25 HYDROXY Lab Routine 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) Vitamin D deficiency Expected: 12/23/2024, Expires: 03/24/2025[facility] Work Phone: Comment on above:Expected: 12/23/2024, Expires: 03/24/2025Start: 12-22-2024 End: 53-44-0826Ofpdnc-up ucjqfvrov66/25/2025 1:30 PM EDT Visit (SP) Office Hematology/Oncology [address] [place], [place] [phone] Katherine Negrete OLERICULTURE PROFESSOR.ART HISTORY INSTRUCTOR [address] [place] [address] 8 week follow up labHematology/OncologyComment on above:8 week follow up labStart: 12-22-2024 End: 85-33-7229Opgotbf encounter nieifedpc24/25/2025 1:15 PM EDT Office Visit [facility] [address] [place], [place] [address], [place] [address] 8 week follow up labNortTrinity Health Livingston Hospital LaboratoryComment on above:8 week follow up labStart: 12-17-2024 End: 86-21-1547Tlmwaecvifov consultation with etcstio6512/17/2024 1:30 PM EDT Telemedicine Maternal- Medicine at [facility] [address] [place] [address] Alisa Saba, OLERICULTURE PROFESSOR-ART HISTORY INSTRUCTOR [address] [place] [address] [facility]: 12-11-2024 End: 37-92-5949Thpcwon encounter kkvkekxci75/14/2025 9:10 AM EDT Routine NOMS Piyush COLVIN [address] [place], [id number] Wilton Herrmann DO [address] [place] [address] NOMS Piyush ROBBGYNStart: 12-03-2024 End: 12-87-7065Mbzezjytzayd consultation with apggdim7512/03/2024 2:00 PM EDT Telemedicine Maternal- Medicine at [facility] [address] [place] [address] Alisa Saba, VICTOR HUGO-ART HISTORY INSTRUCTOR [address] [place] [address] [facility]: 11-20-2024 End: 57-39-7307Comsd fetoprotein, maternalAlpha fetoprotein, maternal Lab Routine Second trimester ([facility]) Expected: 11/20/2024 (Approximate), Expires: 01/21/2025[facility] HealthcareComment on above:Expected: 11/20/2024 (Approximate), Expires: 01/21/2025Start: 11-20-2024 End: 80-84-4352Ywwpojq encounter hnsduqssr76/24/2025 10:10 AM EDT Routine [facility] [address] [place] [address] Wilton Herrmann, DO [address] [place] [address] [facility] BCP OBStart: 11-19-2024 End: 71-28-8881djrckwybep09/23/2025 9:30 AM EDT Support Visit M[facility]- Medicine at [facility] [address] [place] [id number] Lorena Enciso, RN [address] [facility], [address] [place] [address], [place] [address] Stephanie Quiros LD Fischer, Kelli, JERONIMO [address] [facility] [place] [place], [address] [place] [address] [facility]: 11-12-2024 End: 36-18-8945GP MFM with or without consultUS MFM with or without consult Imaging Routine Gestational diabetes mellitus (GDM), antepartum, gestational diabetes method of control unspecified Expected: 11/12/2024 (Approximate), Expires: 10/13/2025[facility] Work Phone: comment on above:Expected: 11/12/2024 (Approximate), Expires: 10/13/2025Start: 10-30-2024 End: 81-05-4949Pctwqdm encounter oqzpjdkcs42/03/2025 10:40 AM EDT Routine [facility] [address] [place] [phone] Wilton Herrmann, DO [address] [place] [address] [facility] BCP OBStart: 10-30-2024 End: 12-05-9950Tuucrkn encounter ivogrftuo18/03/2025 9:30 AM EDT Routine [facility] OB [address] [place] [phone] Wilton Herrmann, DO [address] [place] [address] ArrivedNOMS BCP OBComment on above: ArrivedStart: 10-28-2024 End: 59-26-2944Bywtyd-up tadwgaobe52/01/2025 2:30 PM EDT Visit (SP) Office Hematology/Oncology [address] [place], [place] [phone] Katherine Negrete, OLERICULTURE PROFESSOR.ART HISTORY INSTRUCTOR [address] [place] [address] 3 month follow upHematology/OncologyComment on above:3 month follow upStart: 10-28-2024 End: 01-84-4495Nwxxsyi encounter myontgwsd79/01/2025 2:15 PM EDT Office Visit [facility] [address] [place] [address] labs - patient [facility] LaboratoryComment on above:labs - patient prefers to come same day Start: 10-27-2024 End: 22-70-4016Egzvhdz encounter prxbnkqna73/30/2025 9:20 AM EDT Office Visit [facility] OB [address] [facility] [place] [phone] Wilton Herrmann, DO [address] [facility] [place] [address] [facility] OBStart: 10-20-2024 End: 16-76-0454Ldastggdpiqv / ancillary services rytyrfvmgs42/23/2025 1:00 PM EDT Ancillary Procedure [facility] OB [address] [place] [address] [facility] BCP OBStart: 10-10-2024 End: 20-16-3792Syfpig-up bsnlmrcda19/13/2025 10:40 AM EDT Visit (SP) Office Hematology/Oncology [address] [place] [address] Kristofer Calix MD [address] [place] [address] 3 month follow upHematology/OncologyComment on above:3 month follow upStart: 10-10-2024 End: 15-90-8367Szwubho encounter jqlgizisa45/13/2025 10:15 AM EDT Office Visit [facility] [address] [place] [address] labs - patient prefers to come [facility] dayWill[facility] LaboratoryComment on above:labs - patient prefers to come same day Start: 10-02-2024 End: 59-02-2089QJD/RhABO/Rh Lab Routine Missed menses , unspecified gestational age Expected: 10/02/2024 (Approximate), Expires: 10/02/2025[facility] HealthcareComment on above:Expected: 10/02/2024 (Approximate), Expires: 10/02/2025Start: 10-02-2024 End: 91-17-3276Htaie type and Indirect antibody screen panel - BloodType and screen Lab Routine Missed menses , unspecified gestational age Expected: 10/02/2024 (Approximate), Expires: 10/02/2025[facility] Work Phone: comment on above:Expected: 10/02/2024 (Approximate), Expires: 10/02/2025Start: 10-02-2024 End: 58-73-2300Iqdbe of abuse panel - Urine by Screen methodRapid drug screen, urine Lab Routine , unspecified gestational age Encounter for supervision of normal first in first trimester Expected: 10/02/2024 (Approximate), Expires: 10/02/2025[facility] HealthcareComment on above:Expected: 10/02/2024 (Approximate), Expires: 10/02/2025Start: 10-02-2024 End: 40-57-4587ffzynaqlzz88/05/2025 1:00 PM EDT Initial [facility] OB [facility] [place] [address] QEAX BCP OBStart: 10-02-2024 End: 81-53-1009Hxvxwmtebqkb / ancillary services zyjagabydx46/05/2025 12:30 PM EDT Ancillary Procedure [facility] OB [facility] [address] [place], [place] [phone] VYIJ BCP OBStart: 08-27-2024 End: 17-64-0388Jhkjre-up lyecalqoc80/30/2025 2:00 PM EDT Visit (SP) Office Hematology/Oncology [address] [place] [address] [address] [place], [place] [phone] Kristofer Calix MD [address] [place] [address] 3 month follow upHematology/OncologyComment on above:3 month follow upStart: 08-27-2024 End: 05-97-6709Yltecal encounter flcmvelqs28/30/2025 1:45 PM EDT Office Visit [facility] [address] [place] [address] labs - patient prefers to come same dayWill[facility] LaboratoryComment on above:labs - patient prefers to come same day Start: 08-26-2024 End: 276724-skxxrgeygirvmn D3 [Mass/volume] in Serum or PlasmaVITAMIN D 25 HYDROXY Lab Routine 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 Vitamin D deficiency Expected: 08/26/2024, Expires: 11/25/2024[facility] ClinicComment on above: Expected: 08/26/2024, Expires: 11/25/2024Start: 08-26-2024 End: 17-38-8991RDB W Auto Differential panel - BloodCOMPLETE BLOOD COUNT AND DIFFERENTIAL Lab Routine 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 Vitamin D deficiency Expected: 08/26/2024, Expires: 11/25/2024[facility] Work Phone: Comment on above:Expected: 08/26/2024, Expires: 11/25/2024Start: 08-26-2024 End: 79-17-3769Bchlrrowa (Vitamin B12) [Mass/volume] in Serum or PlasmaVITAMIN B12 Lab Routine 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 Vitamin D deficiency Expected: 08/26/2024, Expires: 11/25/2024[facility] ClinicComment on above: Expected: 08/26/2024, Expires: 11/25/2024Start: 08-26-2024 End: 40-47-3532Utzqcdlxwzimk metabolic 2000 panel - Serum or PlasmaCOMPREHENSIVE METABOLIC PANEL Lab Routine Antiphospholipid antibody positive Iron deficiency anemiasecondary to blood loss (chronic) Malaise and fatigue Vitamin D deficiency Expected: 08/26/2024, Expires: 11/25/2024[facility] ClinicComment on above: Expected: 08/26/2024, Expires: 11/25/2024Start: 08-26-2024 End: 96-04-9523Pgvckbvo [Mass/volume] in Serum or PlasmaFERRITIN Lab Routine 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) Malaise and fatigue Vitamin D deficiency Expected: 08/26/2024, Expires: 11/25/2024[facility] ClinicComment on above:Expected: 08/26/2024, Expires: 11/25/2024Start: 08-26-2024 End: 03-20-0189Pphc and Iron binding capacity panel - Serum or PlasmaIRON AND TIBC Lab Routine 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 Vitamin D deficiency Expected: 08/26/2024, Expires: 11/25/2024[facility] ClinicComment on above: Expected: 08/26/2024, Expires: 11/25/2024Start: 08-26-2024 End: 50-48-4144Nffbflzhbdc [Units/volume] in Serum or PlasmaTHYROID STIMULATING HORMONE Lab Routine Antiphospholipid antibody positive 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) Malaise and fatigue Vitamin D deficiency Expected: 08/26/2024, Expires: 11/25/2024[facility] ClinicComment on above: Expected: 08/26/2024, Expires: 11/25/2024Start: 07-24-2024 End: 47-55-9900XjxufijpcqyuUynafkrcohtg Lab Routine Irregular menstrual cycle Expected: 07/24/2024 (Approximate), Expires: 07/24/2025[facility] Work Phone: comment on above:Expected: 07/24/2024 (Approximate), Expires: 07/24/2025Start: 63-51-7857OUnH,Tdap and Td Vaccines (2 - Td or Tdap) DTaP,Tdap and Td Vaccines (2 - Td or Tdap)[facility] HospitalLeiyoo SystemStart: 79-74-5838TScK/Tdap/Td vaccine (2 - Td or Tdap)DTaP/Tdap/Td vaccine (2 - Td or Tdap)[facility]ITALStart: 93-86-6207Lyqku microalbumin profile [facility]: 06-23-2024 End: 31-23-9685BV PelvisUS Pelvis w/ TV Imaging Routine Vaginal bleeding Vaginal discharge Pelvic pain in female Expected: 06/23/2024, Expires: 06/23/2025[facility] HealthcareComment on above:Expected: 06/23/2024, Expires: 06/23/2025Start: 06-02-2024 End: 60-74-4534Tcscwcu encounter hmmomulks83/03/2025 11:20 AM EST Office Visit [facility] [address] [facility] [place] [phone] Wilton Herrmann, [address] [place] [address] [facility] BCP OBStart: 05-21-2024 End: 13-13-7924Dcvgvs-up scavpvsvb28/22/2025 2:20 PM EST Visit (SP) Office Hematology/Oncology [address] [place], [place] [phone] Kristofer Calix MD [address] [place] [address] 3 month follow up with labHematology/OncologyComment on above:3 month follow up with labStart: 05-21-2024 End: 71-01-2542Rvzeoep encounter bhnurxagm90/22/2025 2:00 PM EST Office Visit [facility] [address] [address] 3 month follow up with labNortTr[facility] LaboratoryComment on above:3 month follow up with labStart: 05-06-2024 End: 65-55-6916VK for pregnancyNOMS Healthcare Work Phone: comment on above:Expected: 05/06/2024, Expires: 05/06/2025Start: 05-06-2024 End: 33-67-5807Juhleun encounter tgpnytufi89/07/2025 1:50 PM EST Routine [facility] [address] [facility] [place] [phone] Wilton Herrmann [address] [place] [address] [facility] BCP OBStart: 04-09-2024 End: 67-57-6526Iluhsg-up encounterHematology/OncologyComment on above:3 month follow up with labStart: 04-09-2024 End: 35-82-9292Hryodue encounter procedureWill[facility] LaboratoryComment on above:3 month follow up with labStart: 04-04-2024 End: 22-99-9781OOU/RhABO/Rh Lab Routine Missed menses , unspecified gestational age Expected: 04/04/2024 (Approximate), Expires: 04/04/2025[facility] HealthcareComment on above:Expected: 04/04/2024 (Approximate), Expires: 04/04/2025Start: 04-04-2024 End: 27-18-1859Lrbxt type and Indirect antibody screen panel - BloodType and screen Lab Routine Missed menses , unspecified gestational age Expected: 04/04/2024 (Approximate), Expires: 04/04/2025[facility] Work Phone: comment on above:Expected: 04/04/2024 (Approximate), Expires: 04/04/2025Start: 04-04-2024 End: 90-81-3547Zhhbe of abuse panel - Urine by Screen methodRapid drug screen, urine Lab Routine , unspecified gestational age Encounter for supervision of normal first in first trimester Expected: 04/04/2024 (Approximate), Expires: 04/04/2025[facility] HealthcareComment on above:Expected: 04/04/2024 (Approximate), Expires: 04/04/2025Start: 04-04-2024 End: 85-93-3404WB Pelvis transvaginalUS OB transvaginal Imaging Routine Missed menses Expected: 04/04/2024 (Approximate), Expires: 04/04/2025[facility] Comment on above:Expected: 04/04/2024 (Approximate), Expires: 04/04/2025Start: 04-02-2024 End: 383417-fdevluvawsjkbv D3 [Mass/volume] in Serum or PlasmaVITAMIN D 25 HYDROXY Lab Routine Iron deficiency anemia secondary to blood loss (chronic) Vitamin Ddeficiency Malaise and fatigue Expected: 04/02/2024 (Approximate), Expires: 07/02/2024[facility] ClinicComment on above:Expected: 04/02/2024 (Approximate), Expires: 07/02/2024Start: 04-02-2024 End: 92-50-3814PGT W Auto Differential panel - BloodCOMPLETE BLOOD COUNT AND DIFFERENTIAL Lab Routine Iron deficiency anemia secondary to blood loss (ch ronic) Vitamin D deficiency Malaise and fatigue Expected: 04/02/2024 (Approximate), Expires: 01/01/2025[facility] ClinicComment on above:Expected: 04/02/2024 (Approximate), Expires: 01/01/2025Start: 04-02-2024 End: 41-20-4441Afvwvxriz (Vitamin B12) [Mass/volume] in Serum or PlasmaVITAMIN B12 Lab Routine Iron deficiency anemia secondary to blood loss (chronic) Vitamin D deficiency Malaise and fatigue Expected: 04/02/2024 (Approximate), Expires: 01/01/2025[facility] ClinicComment on above:Expected: 04/02/2024 (Approximate), Expires: 01/01/2025Start: 04-02-2024 End: 72-35-5850Wuytdcagonelg metabolic 2000 panel - Serum or PlasmaCOMPREHENSIVE METABOLIC PANEL Lab Routine Iron deficiency anemia secondary to blood loss (chronic) Vitamin D deficiency Malaise and fatigue Expected: 04/02/2024 (Approximate), Expires: 01/01/2025[facility] ClinicComment on above:Expected: 04/02/2024 (Approximate), Expires: 01/01/2025Start: 04-02-2024 End: 58-53-6895Ogsmttcw [Mass/volume] in Serum or PlasmaFERRITIN Lab Routine Iron deficiency anemia secondary to blood loss (chronic) Vitamin D deficiency M alaise and fatigue Expected: 04/02/2024 (Approximate), Expires: 01/01/2025 [facility]:Expected: 04/02/2024 (Approximate), Expires: 01/01/2025Start: 04-02-2024 End: 28-48-5259Uvajmq [Mass/volume] in Serum or PlasmaFOLATE, SERUM Lab Routine Iron deficiency anemia secondary to blood loss (chronic) Vitamin D deficiency Malaise and fatigue Expected: 04/02/2024 (Approximate), Expires: 01/01/2025 [facility]Comment on [facility]:Expected: 04/02/2024 (Approximate), Expires: 01/01/2025Start: 04-02-2024 End: 31-32-8131Lyji and Iron binding capacity panel - Serum or PlasmaIRON AND TIBC Lab Routine Iron deficiency anemia secondary to blood loss (chronic) Vitamin D deficiency Malaise and fatigue Expected: 04/02/2024 (Approximate), Expires: 01/01/2025[facility] HospitalComment [facility] above:Expected: 04/02/2024 (Approximate), Expires: 01/01/2025Start: 04-02-2024 End: 79-97-5535Nzmmjrmkmom [Units/volume] in Serum or PlasmaTHYROID STIMULATING HORMONE Lab Routine Iron deficiency anemia secondary to blood loss (chronic) Vit vogel D deficiency Malaise and fatigue Expected: 04/02/2024 (Approximate), Expires: 07/02/2024[facility] Work Phone: Comment on above:Expected: 04/02/2024 (Approximate), Expires: 07/02/2024Start: 01-05-2024 End: 88-13-9497IBX W Auto Differential panel - BloodCOMPLETE BLOOD COUNT AND DIFFERENTIAL Lab Routine Iron deficiency anemia secondary to blood loss (ch ronic) Vitamin D deficiency Malaise and fatigue Expected: 01/05/2024 (Approximate), Expires: 01/01/2025[facility] ClinicComment on above:Expected: 01/05/2024 (Approximate), Expires: 01/01/2025Start: 01-05-2024 End: 81-95-1910Hcxiqspapiyih metabolic 2000 panel - Serum or PlasmaCOMPREHENSIVE METABOLIC PANEL Lab Routine Iron deficiency anemia secondary to blood loss (chronic) Vitamin D deficiency Malaise and fatigue Expected: 01/05/2024 (Approximate), Expires: 5[facility] ClinicComment on above:Expected: 01/05/2024 (Approximate), Expires: 01/01/2025Start: 01-02-2024 End: 04-00-7842Gqrgpw-up frapwzmmi36/04/2024 1:45 PM EDT Visit (SP) Office Hematology/Oncology [address] [place], [place] [phone] Kristofer Calix MD [address] [place] [address] 8 WEEK FOLLOW UPHematology/OncologyComment on above:8 WEEK FOLLOW UPStart: 01-02-2024 End: 08-46-4387Hljmftu encounter axehpdeyv94/04/2024 1:30 PM EDT Office Visit [facility] [address] [place] [address] 8 WEEK FOLLOW UPNortTrinity Health [facility] LaboratoryComment on above:8 WEEK FOLLOW UPStart: 56-03-7156Ekitf-19 Vaccine ( season)Covid-19 Vaccine ( season)[facility]: 31-94-9332Kuehg-19 Vaccine ( season)Covid-19 Vaccine ( season)[facility] Hospital[facility]: 91-85-8458Gbmdvgxfk vaccinationKindred Hospital Dayton Start: 11-29-2023 End: 96-40-9329crnxqsadqa90/01/2024 1:30 PM EDT Infusion Center Hematology/Oncology [address] [place] [address] VENOFER 300Hematology/OncologyComment on above:VENOFER 300Start: 11-22-2023 End: 63-96-9997cebzetvzff38/25/2024 1:30 PM EDT Infusion Center Hematology/Oncology [address] [place] [address] VENOFER 300Hematology/OncologyComment on above:VENOFER 300Start: 11-15-2023 End: 41-47-6315tjclanbwgr51/18/2024 1:30 PM EDT Infusion Center Hematology/Oncology [address] [place] [address] [place] [address] VENOFER 300Hematology/OncologyComment on above:VENOFER 300Start: 09-13-2023 End: 22-82-768035077486-yeleheodmfrdji D3 [Mass/volume] in Serum or PlasmaVITAMIN D 25 HYDROXY Lab Routine Vitamin D deficiency 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) Expected: 09/13/2023 (Approximate), Expires: 12/13/2023[facility] Work Phone: Comment on above:Expected: 09/13/2023 (Approximate), Expires: 12/13/2023Start: 09-13-2023 End: 36-40-5342Whchwao.ionized [Moles/volume] in BloodCALCIUM IONIZED BLOOD Lab Routine Vitamin D deficiency 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) Expected: 09/13/2023 (Approximate), Expires: 12/13/2023 [facility] Work Phone: Comment on above:Expected: 09/13/2023 (Approximate), Expires: 12/13/2023Start: 09-13-2023 End: 24-87-1309GOW W Auto Differential panel - BloodCBC + DIFF Lab Routine Vitamin D deficiency 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) Expected: 09/13/2023 (Approximate), Expires: 06/15/2024[facility] Work Phone: Comment on above:Expected: 09/13/2023 (Approximate), Expires: 06/15/2024Start: 09-13-2023 End: 51-25-8895Zfgpjdagx (Vitamin B12) [Mass/volume] in Serum or PlasmaVITAMIN B12 BLOOD Lab Routine Vitamin D deficiency 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) Expected: 09/13/2023 (Approximate), Expires: 06/15/2024[facility] Work Phone: Comment on above:Expected: 09/13/2023 (Approximate), Expires: 06/15/2024Start: 09-13-2023 End: 35-69-5880Qakxwiupmzido metabolic 2000 panel - Serum or PlasmaCOMP METABOLIC PANEL Lab Routine Vitamin D deficiency 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) Expected: 09/13/2023 (Approximate), Expires: 06/15/2024[facility] Work Phone: Comment on above:Expected: 09/13/2023 (Approximate), Expires: 06/15/2024Start: 09-13-2023 End: 91-79-6366Lgcodmku [Mass/volume] in Serum or PlasmaFERRITIN BLD Lab Routine Vitamin D deficiency 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) Expected: 09/13/2023 (Approximate), Expires: 06/15/2024[facility] Work Phone: Comment on above:Expected: 09/13/2023 (Approximate), Expires: 06/15/2024Start: 09-13-2023 End: 31-43-0844Vglokn [Mass/volume] in Serum or PlasmaFOLATE SERUM Lab Routine Vitamin D deficiency 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) Expected: 09/13/2023 (Approximate), Expires: 06/15/2024[facility] Work Phone: Comment on above:Expected: 09/13/2023 (Approximate), Expires: 06/15/2024Start: 09-13-2023 End: 29-32-2212Klis and Iron binding capacity panel - Serum or PlasmaIRON + TIBC Lab Routine Vitamin D deficiency 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) Expected: 09/13/2023 (Approximate), Expires: 06/15/2024 [facility] Work Phone: Comment on above:Expected: 09/13/2023 (Approximate), Expires: 06/15/2024Start: 09-13-2023 End: 48-97-0797Iaqvvykzme.intact [Mass/volume] in Serum or PlasmaPTH INTACT BLD Lab Routine Vitamin D deficiency 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) Expected: 09/13/2023 (Approximate), Expires: 12/13/2023 [facility] Work Phone: Comment on above:Expected: 09/13/2023 (Approximate), Expires: 12/13/2023Start: 06-15-2023 End: 936481-qjkpqtfqvbgioc D3 [Mass/volume] in Serum or PlasmaVITAMIN D 25 HYDROXY Lab Routine Vitamin D deficiency Expected: 06/15/2023 (Approximate), Expires: 09/14/2023[facility] Work Phone: Comment on above:Expected: 06/15/2023 (Approximate), Expires: 09/14/2023Start: 06-15-2023 End: 42-85-1381Vslakek.ionized [Moles/volume] in BloodCALCIUM IONIZED BLOOD Lab Routine Vitamin D deficiency Hypercalcemia Expected: 06/15/2023 (Approximate), Expires: 09/14/2023[facility] Work Phone: Comment on above:Expected: 06/15/2023 (Approximate), Expires: 09/14/2023Start: 06-15-2023 End: 51-66-7332EWH W Auto Differential panel - BloodCBC + DIFF Lab Routine Iron deficiency anemia secondary to blood loss (chronic) Expected: 06/15/2023 (Approximate), Expires: 06/12/2024[facility] Work Phone: Comment on above:Expected: 06/15/2023 (Approximate), Expires: 06/12/2024Start: 06-15-2023 End: 15-58-5928Qpuhtvfsm (Vitamin B12) [Mass/volume] in Serum or PlasmaVITAMIN B12 BLOOD Lab Routine Iron deficiency anemia secondary to blood loss (chronic) Expected: 06/15/2023 (Approximate), Expires: 06/12/2024[facility] Work Phone: Comment on above:Expected: 06/15/2023 (Approximate), Expires: 06/12/2024Start: 06-15-2023 End: 61-22-7182Vhnubcwehcthm metabolic 2000 panel - Serum or PlasmaCOMP METABOLIC PANEL Lab Routine Iron deficiency anemia secondary to blood loss (chronic) Expected:06/15/2023 (Approximate), Expires: 06/12/2024[facility] Work Phone: Comment on above:Expected: 06/15/2023 (Approximate), Expires: 06/12/2024Start: 06-15-2023 End: 08-14-3718Loinmzxi [Mass/volume] in Serum or PlasmaFERRITIN BLD Lab Routine Iron deficiency anemia secondary to blood loss (chronic) Expected: 06/15/2023 (Approximate), Expires: 06/12/2024[facility] Work Phone: Comment on above:Expected: 06/15/2023 (Approximate), Expires: 06/12/2024Start: 06-15-2023 End: 30-72-3142Ctlkob [Mass/volume] in Serum or PlasmaFOLATE SERUM Lab Routine Iron deficiency anemia secondary to blood loss (chronic) Expected: 06/15/2023 (Approximate), Expires: 06/12/2024[facility] Work Phone: Comment on above:Expected: 06/15/2023 (Approximate), Expires: 06/12/2024Start: 06-15-2023 End: 53-04-9483Mabx and Iron binding capacity panel - Serum or PlasmaIRON + TIBC Lab Routine Iron deficiency anemia secondary to blood loss (chronic) Expected: 06/15/2023 (Approximate), Expires: 06/12/2024[facility] Work Phone: Comment on above:Expected: 06/15/2023 (Approximate), Expires: 06/12/2024Start: 06-15-2023 End: 58-38-0905HKP, INTACT (WITHOUT CALCIUM)PTH, INTACT (WITHOUT CALCIUM) Lab Routine Vitamin D deficiency Hypercalcemia Expected: 06/15/2023 (Approximate), Expires: 09/14/2023[facility] Work Phone: Comment on above:Expected: 06/15/2023 (Approximate), Expires: 09/14/2023Start: 06-15-2023 End: 82-29-4407Kguedatjkyq [Units/volume] in Serum or PlasmaTSH BLD Lab Routine Malaise and fatigue Expected: 06/15/2023 (Approximate), Expires: 09/14/2023 [facility] Work Phone: Comment on above:Expected: 06/15/2023 (Approximate), Expires: 09/14/2023Start: 06-14-2023 End: 070436-tqxdanexfuspmm D3 [Mass/volume] in Serum or PlasmaVITAMIN D 25 HYDROXY Lab Routine Hypercalcemia Vitamin D deficiency Expected: 06/14/2023 (Approximate), Expires: 09/13/2023[facility] Work Phone: Comment on above:Expected: 06/14/2023 (Approximate), Expires: 09/13/2023Start: 06-14-2023 End: 16-53-5905Niojklg.ionized [Moles/volume] in BloodCALCIUM IONIZED BLOOD Lab Routine Hypercalcemia Vitamin D deficiency Expected: 06/14/2023 (Approximate), Expires: 09/13/2023[facility] Work Phone: Comment on above:Expected: 06/14/2023 (Approximate), Expires: 09/13/2023Start: 06-14-2023 End: 22-23-6605KNS, INTACT (WITHOUT CALCIUM)PTH, INTACT (WITHOUT CALCIUM) Lab Routine Hypercalcemia Vitamin D deficiency Expected: 06/14/2023 (Approximate), Expires: 09/13/2023[facility] Work Phone: Comment on above:Expected: 06/14/2023 (Approximate), Expires: 09/13/2023Start: 06-14-2023 End: 87-08-6652Zzhwtwhzdre [Units/volume] in Serum or PlasmaTSH BLD Lab Routine Hypercalcemia Malaise and fatigue Expected: 06/14/2023 (Approximate), Expires: [address] [place] [address] Work Phone: Comment on above:Expected: 06/14/2023 (Approximate), Expires: 09/13/2023Start: 05-14-2023 End: 73-55-9676FKO W Auto Differential panel - BloodCBC + DIFF Lab Routine Primary hypercoagulable state (HCC) Iron deficiency anemia secondary to blood loss (chronic) Vitamin D deficiency CVA, old, 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) Expected: 05/14/2023 (Approximate), Expires: 03/19/2024[facility] Work Phone: Comment on above:Expected: 05/14/2023 (Approximate), Expires: 03/19/2024Start: 05-14-2023 End: 40-63-6646Ychalmvtk (Vitamin B12) [Mass/volume] in Serum or PlasmaVITAMIN B12 BLOOD Lab Routine Primary hypercoagulable state (HCC) Iron deficiency anemia secondary to blood loss (chronic) Vitamin D deficiency CVA, old, 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) Expected: 05/14/2023 (Approximate), Expires: 03/19/2024[facility] Work Phone: Comment on above:Expected: 05/14/2023 (Approximate), Expires: 03/19/2024Start: 05-14-2023 End: 83-27-6749Ddzkoksdtkasl metabolic 2000 panel - Serum or PlasmaCOMP METABOLIC PANEL Lab Routine Primary hypercoagulable state (HCC) Iron deficiency anemia secondary to blood loss (chronic) Vitamin D deficiency CVA, old, 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) Expected: 05/14/2023 (Approximate), Expires: 03/19/2024[facility] Work Phone: Comment on above:Expected: 05/14/2023 (Approximate), Expires: 03/19/2024Start: 05-14-2023 End: 52-74-6943Fdbybruy [Mass/volume] in Serum or PlasmaFERRITIN BLD Lab Routine Primary hypercoagulable state (HCC) Iron deficiency anemia secondary to blood loss (chronic) Vitamin D deficiency CVA, old, 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) Expected: 05/14/2023 (Approximate), Expires: 03/19/2024[facility] Work Phone: Comment on above:Expected: 05/14/2023 (Approximate), Expires: 03/19/2024Start: 05-14-2023 End: 98-45-5342Eyrwkc [Mass/volume] in Serum or PlasmaFOLATE SERUM Lab Routine Primary hypercoagulable state (HCC) Iron deficiency anemia secondary to blood loss (chronic) Vitamin D deficiency CVA, old, 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) Expected: 05/14/2023 (Approximate), Expires: 03/19/2024[facility] Work Phone: Comment on above:Expected: 05/14/2023 (Approximate), Expires: 03/19/2024Start: 05-14-2023 End: 93-36-9332Luxg and Iron binding capacity panel - Serum or PlasmaIRON + TIBC Lab Routine Primary hypercoagulable state (HCC) Iron deficiency anemia secondary to blood loss (chronic) Vitamin D deficiency CVA, old, 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) Expected: 05/14/2023 (Approximate), Expires: 03/19/2024[facility] Work Phone: Comment on above:Expected: 05/14/2023 (Approximate), Expires: 03/19/2024Start: 39-11-6273Glpguxazop Health ScreeningBehavioral Health ScreeningProMedica Tol[facility] Hospitaltart: 72-29-3289Dgdgurburt AssessmentDepression AssessmentProMedica Toledo Hospitaltart: 02-16-2023 End: 396663-ikulzewbwshcrm D3 [Mass/volume] in Serum or PlasmaVITAMIN D 25 HYDROXY Lab Routine Primary hypercoagulable state (HCC) Iron deficiency anemia secondary to blood loss (chronic) Vitamin D deficiency Expected: 02/16/2023 (Approximate), Expires: 04/18/2023[facility] Work Phone: Comment on above:Expected: 02/16/2023 (Approximate), Expires: 04/18/2023Start: 02-16-2023 End: 14-26-1016HRW W Auto Differential panel - BloodCBC + DIFF Lab Routine Primary hypercoagulable state (HCC) Iron deficiency anemia secondary to blood loss (chronic) Expected: 02/16/2023 (Approximate), Expires: 12/23/2023[facility] Work Phone: Comment on above:Expected: 02/16/2023 (Approximate), Expires: 12/23/2023Start: 02-16-2023 End: 53-17-4724Egallkpag (Vitamin B12) [Mass/volume] in Serum or PlasmaVITAMIN B12 BLOOD Lab Routine Primary hypercoagulable state (HCC) Iron deficiency anemia secondary to blood loss (chronic) Expected: 02/16/2023 (Approximate), Expires: 12/23/2023[facility] Work Phone: Comment on above:Expected: 02/16/2023 (Approximate), Expires: 12/23/2023Start: 02-16-2023 End: 05-82-2592Hwgqfcofhwsbt metabolic 2000 panel - Serum or PlasmaCOMP METABOLIC PANEL Lab Routine Primary hypercoagulable state (HCC) Iron deficiency anemia secondary to blood loss (chronic) Expected: 02/16/2023 (Approximate), Expires: 12/23/2023[facility] Work Phone: Comment on above:Expected: 02/16/2023 (Approximate), Expires: 12/23/2023Start: 02-16-2023 End: 85-77-1685Xhvttzgc [Mass/volume] in Serum or PlasmaFERRITIN BLD Lab Routine Primary hypercoagulable state (HCC) Iron deficiency anemia secondary to blood loss (chronic) Expected: 02/16/2023 (Approximate), Expires: 12/23/2023[facility] Work Phone: Comment on above:Expected: 02/16/2023 (Approximate), Expires: 12/23/2023Start: 02-16-2023 End: 63-81-9291Amzhuf [Mass/volume] in Serum or PlasmaFOLATE SERUM Lab Routine Primary hypercoagulable state (HCC) Iron deficiency anemia secondary to blood loss (chronic) Expected: 02/16/2023 (Approximate), Expires: 12/23/2023[facility] Work Phone: Comment on above:Expected: 02/16/2023 (Approximate), Expires: 12/23/2023Start: 02-16-2023 End: 73-29-1818Uhsi and Iron binding capacity panel - Serum or PlasmaIRON + TIBC Lab Routine Primary hypercoagulable state (HCC) Iron deficiency anemia secondary to blood loss (chronic) Expected: 02/16/2023 (Approximate), Expires: 12/23/2023[facility] Work Phone: Comment on above:Expected: 02/16/2023 (Approximate), Expires: 12/23/2023Start: 39-33-0183Gkdbj-19 Vaccine ()Covid- 19 Vaccine ()[facility]: 98-16-0445Jxvhaojvl vaccinationProMedica Toledo Hospitaltart: 67-03-4254FJB TESTINGPAP TESTINGProMedica Toledo Hospitaltart: 44-50-5506Hfmybtixc for malignant neoplasm of cervixPap Testing [facility]: 11-28-2022 End: 02-32-7621ZFS W Auto Differential panel - BloodCBC + DIFF Lab Routine Primary hypercoagulable state (HCC) CVA, old, speech/language deficit Cerebral hyponatremia Expected: 11/28/2022 (Approximate), Expires: 10/04/2023[facility] Work Phone: Comment on above:Expected: 11/28/2022 (Approximate), Expires: 10/04/2023Start: 11-28-2022 End: 00-37-9779Uueulfxou (Vitamin B12) [Mass/volume] in Serum or PlasmaVITAMIN B12 BLOOD Lab Routine Primary hypercoagulable state (HCC) CVA, old, speech/language deficitCerebral hyponatremia Expected: 11/28/2022 (Approximate), Expires: 06/06/[address] [place] [address] Work Phone: Comment on above:Expected: 11/28/2022 (Approximate), Expires: 10/04/2023Start: 11-28-2022 End: 62-23-3251Yaagmdtxmruvx metabolic 2000 panel - Serum or PlasmaCOMP METABOLIC PANEL Lab Routine Primary hypercoagulable state (HCC) CVA, old, speech/language deficit Cerebral hyponatremia Expected: 11/28/2022 (Approximate), Expires: [address] [place] [address] Work Phone: Comment on above:Expected: 11/28/2022 (Approximate), Expires: 10/04/2023Start: 11-28-2022 End: 17-60-0244Xolwnmqb [Mass/volume] in Serum or PlasmaFERRITIN BLD Lab Routine Primary hypercoagulable state (HCC) CVA, old, speech/language deficit Cerebral hyponatremia Expected: 11/28/2022 (Approximate), Expires: 10/04/2023[facility] Work Phone: Comment on above:Expected: 11/28/2022 (Approximate), Expires: 10/04/2023Start: 11-28-2022 End: 53-54-6903Wetquo [Mass/volume] in Serum or PlasmaFOLATE SERUM Lab Routine Primary hypercoagulable state (HCC) CVA, old, speech/language deficit Cerebral hyponatremia Expected: 11/28/2022 (Approximate), Expires: 10/04/2023[facility] Work Phone: Comment on above:Expected: 11/28/2022 (Approximate), Expires: 10/04/2023Start: 11-28-2022 End: 45-54-6439Ukqi and Iron binding capacity panel - Serum or PlasmaIRON + TIBC Lab Routine Primary hypercoagulable state (HCC) CVA, old, speech/language deficit Cerebral hyponatremia Expected: 11/28/2022 (Approximate), Expires: [address] [place] [address] Work Phone: Comment on above:Expected: 11/28/2022 (Approximate), Expires: 10/04/2023Start: 09-21-2022 End: 32-29-8145LWH W Auto Differential panel - BloodCBC + DIFF Lab Routine Primary hypercoagulable state (HCC) 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, old, speech/language deficit Expected: 09/21/2022 (Approximate), Expires: 07/28/2023[facility] Work Phone: Comment on above:Expected: 09/21/2022 (Approximate), Expires: 07/28/2023Start: 09-21-2022 End: 13-38-5552Gyxovdhcv (Vitamin B12) [Mass/volume] in Serum or PlasmaVITAMIN B12 BLOOD Lab Routine Primary hypercoagulable state (HCC) 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, old, speech/language deficit Expected: 09/21/2022 (Approximate), Expires: 07/28/2023[facility] Work Phone: Comment on above:Expected: 09/21/2022 (Approximate), Expires: 07/28/2023Start: 09-21-2022 End: 89-54-8365Lgsobsvrirteo metabolic 2000 panel - Serum or PlasmaCOMP METABOLIC PANEL Lab Routine Primary hypercoagulable state (HCC) 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, old, speech/language deficit Expected: 09/21/2022 (Approximate), Expires: 07/28/2023[facility] Work Phone: Comment on above:Expected: 09/21/2022 (Approximate), Expires: 07/28/2023Start: 09-21-2022 End: 33-49-1717Taijdnkw [Mass/volume] in Serum or PlasmaFERRITIN BLD Lab Routine Primary hypercoagulable state (HCC) 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, old, speech/language deficit Expected: 09/21/2022 (Approximate), Expires: 07/28/2023[facility] Work Phone: Comment on above:Expected: 09/21/2022 (Approximate), Expires: 07/28/2023Start: 09-21-2022 End: 53-37-8046Gritle [Mass/volume] in Serum or PlasmaFOLATE SERUM Lab Routine Primary hypercoagulable state (HCC) 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, old, speech/language deficit Expected: 09/21/2022 (Approximate), Expires: 07/28/2023[facility] Work Phone: Comment on above:Expected: 09/21/2022 (Approximate), Expires: 07/28/2023Start: 09-21-2022 End: 94-70-8415Gauu and Iron binding capacity panel - Serum or PlasmaIRON + TIBC Lab Routine Primary hypercoagulable state (HCC) 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, old, speech/language deficit Expected: 09/21/2022 (Approximate), Expires: 07/28/2023[facility] Work Phone: Comment on above:Expected: 09/21/2022 (Approximate), Expires: 07/28/2023Start: 45-33-9954DVLBPKPKZY ASSESSMENTDEPRESSION ASSESSMENT [facility]: 01-30-2022 End: 65-40-3202Kuexrxhf [Mass/volume] in Serum or PlasmaFERRITIN BLD Lab Routine Anemia, unspecified type Expected: 01/30/2022, Expires: 01/30/2023[facility] Work Phone: Comment on above:Expected: 01/30/2022, Expires: 01/30/2023Start: 01-30-2022 End: 79-44-2201Okgv and Iron binding capacity panel - Serum or PlasmaIRON + TIBC Lab Routine Anemia, unspecified type Expected: 01/30/2022, Expires: 01/30/2023 [facility] Work Phone: Comment on above:Expected: 01/30/2022, Expires: 01/30/2023Start: 18-63-0093Gpqschmmc vaccinationProMedica Toledo Hospitaltart: 12-29-2021 End: 89-61-6438Nitpotq encounter /01/2022 [facility] Maternal MedStart: 50-36-8155ZLOMNWYGQE ASSESSMENTDEPRESSION ASSESSMENTProMedica Toledo Hospitaltart: 15-93-3673Xijeq depression screening assessmentDEPRESSION SCREENINGProMedica Tol[facility] Hospitaltart: 12-04-2020 Screening for malignant neoplasm of cervixCervical Cancer ScreeningProMedica Toledo Hospitaltart: 79-89-0626Bwjlzgbd screenDiabetes screenRETREAT DOCTORS' [facility] Start: 05-03-8729ODA TESTINGHPV TESTINGProMedica Toledo Hospitaltart: 10-22-2015 Screening for malignant neoplasm of cervixRETREAT DOCTORS' HOSPITALStart: 87-78-7269PSQ Vaccine (1 - 3-dose SCDM series)HPV Vaccine (1 - 3-dose SCDM series)[facility]: 25-13-6949WQA Vaccines (1 - 3-dose SCDM series)HPV Vaccines (1 - 3-dose SCDM series)[facility]: 40-16-2891Etxwynpmj for malignant neoplasm of cervixPap smearRETREAT DOCTORS' HOSPITALStart: 2004 DTaP,Tdap and Td Vaccines (1 - Tdap)DTaP,Tdap and Td Vaccines (1 - Tdap) [facility]: 94-07-0478Fvbiiyikg B Vaccine (1 of 3 - 19+ 3-dose series)Hepatitis B Vaccine (1 of 3 - 19+ 3-dose series)[facility]: 98-24-2133Qoaforvmw B Vaccines (1 of 3 - 19+ 3-dose series)Hepatitis B Vaccines (1 of 3 - 19+ 3-dose series)[facility] HealthcareStart: 23-23-3486Ryxbt BMI Follow Up PlanAdult BMI Follow Up PlanAtrium Health Harrisburgtart: 35-58-3987Urfob BMI ScreeningAdult BMI ScreeningAtrium Health Harrisburgtart: 30-54-9662Ckswbhy ScreeningAnxiety ScreeningProMedica Toledo Hospitaltart: 14-12-0324Yfedqnrqzf Screening Depression ScreeningProMedica Toledo Hospitaltart: 14-88-5026MMOJDZNZB C SCREENING HEPATITIS C SCREENINGProMedica Toledo Hospitaltart: 14-81-0608Ihnilgyki C screeningRETREAT DOCTORS' HOSPITALStart: 55-11-0030UAU SCREENINGHIV SCREENINGKind[facility] Start: 00-49-6015WIK screeningHIV ScreeningProMedica Toledo Hospitaltart: 1998 History of varicella vaccinationVaricella Vaccines (1 of 2 - 13+ 2-dose series) [facility] HospitalStart: 03-08-7124Yiinszmhzs ScreenDepression ScreenBON [facility] Centerart: 33-72-3721Lhyhqttaru ScreeningDepression ScreeningProChildren's Hospital of Columbustart: 04-51-7971Qtkswpp ScreeningTobacco ScreeningAtrium Health Harrisburgtart: 43-43-2311EJaC/Tdap/Td Vaccines (1 - Tdap)DTaP/Tdap/Td Vaccines (1 - Tdap)[facility] HospitalStart: 56-89-6273VJWOS-19 VACCINE (#1)COVID-19 VACCINE (#1)[facility]: 18-11-0148PJWPV-19 VACCINE (1)COVID-19 VACCINE (1) [facility]: 90-93-1631LKR Vaccines (1 of 1 - Standard series)MMR Vaccines (1 of 1 - Standard series)[facility] HospitalStart: 29-91-6854Xhqnbwvim vaccine (1 of 2 - 2-dose childhood series)Varicella vaccine (1 of 2 - 2-dose childhood series)[facility]: 99-34-3250VYVAJ-19 Vaccine (#1) COVID-19 Vaccine (#1)[facility]: 47-45-5982GZOFEPEHX B (1 of 3 - 3-dose series)HEPATITIS B (1 of 3 - 3-dose series)[facility]: 63-58-2084Sjfjlwzer B Vaccine (1 of 3 - 3-dose series)Hepatitis B Vaccine (1 of 3 - 3-dose series)[facility] End: 24-64-4981Cisqt Fetoprotein, MaternalBON [facility] Work Phone: comment on above:Once for 1 Occurrences starting 11/21/2021 until 11/21/2021 End: 28-15-7483Puohslfgivj Ab, HEp-2 Substrate, S (NASEEM by IFA)Antinuclear Ab, HEp-2 Substrate, S (NASEEM by IFA) Lab Routine Antiphospholipid syndrome Antiphospholipid syndrome complicating , antepartum History of CVA (cerebrovascular accident) 1 Occurrences starting 02/16/2025 until 02/16/2026 [facility] Work Phone: comment on above:1 Occurrences starting 02/16/2025 until 6Bacteria identified in Urine by CultureUrine culture Microbiology Routine Missed menses Ordered: 04/04/2024[facility] HealthcareComment on above:Ordered: 04/04/2024acteria identified in Urine by CultureUrine culture Microbiology Routine Missed menses Ordered: 10/02/2024[facility] HealthcareComment on above:Ordered: 10/02/2024 End: 91-29-2488CAQ W Auto Differential panel - BloodCBC + DIFF Lab Routine Primary hypercoagulable state (HCC) CVA, old, 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[facility]) Every 2 months for 6 Occurrences starting 01/30/2022 until 01/30/2023[facility] Work Phone: Comment on above:Every 2 months for 6 Occurrences starting 01/30/2022 until 3CBC W Auto Differential panel - BloodCBC and differential Lab Routine Missed menses , unspecified gestational age Ordered: 04/04/2024[facility] HealthcareComment on above:Ordered: 4CBC W Auto Differential panel - BloodCBC and differential Lab Routine Missed menses , unspecified gestational age Ordered: 10/02/2024[facility] HealthcareComment on above:Ordered: 10/02/2024BC W Auto Differential panel - BloodCBC and differential Lab Routine 28 weeks gestation of ([facility]) Ordered: 02/09/2025[facility] Healthcare Work Phone: comment on above:Ordered: 02/09/2025HLAMYDIA TRACHOMATIS (GENITO/STI)CHLAMYDIA TRACHOMATIS (GENITO/STI) Lab Routine Vaginal bleeding Vaginal discharge Ordered: 06/23/2024[facility] HealthcareComment on above: Ordered: 06/23/2024HLAMYDIA TRACHOMATIS (GENITO/STI)CHLAMYDIA TRACHOMATIS (GENITO/STI) Lab Routine Vaginal discharge Ordered: 11/20/2024[facility] Healthcare Comment on above:Ordered: 11/20/2024 End: 09-72-1718Thmvhdlvbb profile (C3 AND C4)Complement profile (C3 AND C4) Lab Routine Antiphospholipid syndrome Antiphospholipid syndrome complicating , antepartum History of CVA (cerebrovascular accident) 1 Occurrences starting 02/16/2025 until 02/16/2026[facility] SystemComment [facility] above:1 Occurrences starting 02/16/2025 until 02/16/2026 End: 26-49-2556Bvqcvwjdwrdnl metabolic 2000 panel - Serum or PlasmaCOMP METABOLIC PANEL Lab Routine Primary hypercoagulable state (HCC) CVA, old, 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) Every 2 months for 6 Occurrences starting 01/30/2022 until 01/30/2023[facility] Work Phone: Comment on above:Every 2 months for 6 Occurrences starting 01/30/2022 until 01/30/2023 End: 56-30-0098KHE double-stranded (dsDNA) Abs by Crithidia luciliae IFADNA double-stranded (dsDNA) Abs by Crithidia luciliae IFA Lab Routine Antiphospholipid syndrome Antiphospholipid syndrome complicating , antepartum History of CVA (cerebrovascular accident) 1 Occurrences starting 02/16/2025 until 02/16/2026[facility] SystemComment on above:1 Occurrences starting 02/16/2025 until 02/16/2026 End: 17-13-6225SMT PanelENA Panel Lab Routine Antiphospholipid syndrome Antiphospholipid syndrome complicating , antepartum History of CVA (cerebrovascular accident) 1 Occurrences starting 02/16/2025 until 02/16/2026 [facility] SystemComment on above:1 Occurrences starting 02/16/2025 until 02/16/2026Hemoglobin A1c/Hemoglobin.total in BloodHemoglobin A1c Lab Routine Missed menses , unspecified gestational age Ordered: 04/04/2024[facility] HealthcareComment on above:Ordered: 04/04/2024Hemoglobin A1c/Hemoglobin.total in BloodHemoglobin A1c Lab Routine Missed menses , unspecified gestational age Ordered: 10/02/2024[facility] HealthcareComment on above:Ordered: 10/02/2024Hepatitis B virus surface Ag [Presence] in Serum or Plasma by ImmunoassayHepatitis B surface antigen Lab Routine Missed menses , unspecified gestational age Ordered: 04/04/2024[facility] HealthcareComment on above: Ordered: 04/04/2024Hepatitis B virus surface Ag [Presence] in Serum or Plasma by ImmunoassayHepatitis B surface antigen Lab Routine Missed menses , unspecified gestational age Ordered: 10/02/2024[facility] HealthcareComment on above: Ordered: 10/02/2024Hepatitis C virus Ab [Presence] in Serum or Plasma by ImmunoassayHepatitis C antibody Lab Routine Missed menses , unspecified gestational age Ordered: 04/04/2024[facility] HealthcareComment on above:Ordered: 04/04/2024Hepatitis C virus Ab [Presence] in Serum or Plasma by Immunoassay Hepatitis C antibody Lab Routine Missed menses , unspecified gestational age Ordered: 10/02/2024[facility] HealthcareComment on above:Ordered: 10/02/2024HIV-1/HIV-2 antigen/antibody combination immunoassayHIV-1 and HIV-2 antibodies Lab Routine Missed menses , unspecified gestational age Ordered: 04/04/2024[facility] HealthcareComment on above:Ordered: 04/04/2024 HIV-1/HIV-2 antigen/antibody combination immunoassayHIV-1 and HIV-2 antibodies Lab Routine Missed menses , unspecified gestational age Ordered: 10/02/2024[facility] HealthcareComment on above:Ordered: 10/02/2024Neisseria gonorrhoeae DNA [Presence] in Unspecified specimen by LELO with probe detection Neisseria gonorrhea DNA probe, direct Lab Routine Vaginal bleeding Vaginal discharge Ordered: 06/23/2024[facility] HealthcareComment on above:Ordered: 06/23/2024 Neisseria gonorrhoeae DNA [Presence] in Unspecified specimen by LELO with probe detectionNeisseria gonorrhea DNA probe, direct Lab Routine Vaginal discharge Ordered: 11/20/2024[facility] HealthcareComment on above:Ordered: 11/20/2024Reagin Ab [Presence] in Serum by RPRRPR Lab Routine Missed menses , unspecified gestational age Ordered: 04/04/2024[facility] HealthcareComment on above:Ordered: 4Reagin Ab [Presence] in Serum by RPRRPR Lab Routine Missed menses , unspecified gestational age Ordered: 10/02/2024[facility] HealthcareComment on above:Ordered: 10/02/2024Rubella antibody, IgGRubella antibody, IgG Lab Routine Missed menses , unspecified gestational age Ordered: 04/04/2024 [facility] HealthcareComment on above:Ordered: 04/04/2024ubella antibody, IgGRubella antibody, IgG Lab Routine Missed menses , unspecified gestational age Ordered: 10/02/2024[facility] HealthcareComment on above:Ordered: 10/02/2024 SURESWAB(R) ADVANCED VAGINITIS PLUS, TMASURESWAB(R) ADVANCED VAGINITIS PLUS, TMA Pathology and Cytology Routine Vaginal bleeding Vaginal discharge Ordered: 06/23/2024[facility] Healthcare Work Phone: comment on above:Ordered: 06/23/2024SURESWAB(R) ADVANCED VAGINITIS PLUS, TMASURESWAB(R) ADVANCED VAGINITIS PLUS, TMA Pathology and Cytology Routine Vaginal discharge Ordered: 11/20/2024[facility] Work Phone: comment on above:Ordered: 11/20/2024Thyrotropin [Units/volume] in Serum or PlasmaTSH Lab Routine Hypothyroidism (acquired) ([facility]) Ordered: 04/04/2024[facility] HealthcareComment on above:Ordered: 04/04/2024 Thyrotropin [Units/volume] in Serum or PlasmaTSH Lab Routine History of thyroid disease Ordered: 06/02/2024[facility] Work Phone: comqsch on above:Ordered: 06/02/2024Thyrotropin [Units/volume] in Serum or PlasmaTSH Lab Routine Thyroid disease ([facility]) Ordered: 10/02/2024[facility] HealthcareComment on above:Ordered: 10/02/2024 Thyrotropin [Units/volume] in Serum or PlasmaTSH Lab Routine Second trimester ([facility]) Thyroid disease Ordered: 12/11/2024[facility] Work Phone: comnrry on above:Ordered: 12/11/2024UA DIP, URINE (POC)UA DIP, URINE (POC) Lab Routine Infective urethritis Ordered: 08/01/2021 [facility] Work Phone: Comment on above:Ordered: 08/01/2021Vitamin D 1,25 dihydroxyVitamin D 1,25 dihydroxy Lab Routine Low vitamin D level Ordered: 04/04/2024[facility] HealthcareComment on above:Ordered: 04/04/2024 End: 19-99-6811Upxajee D 25 hydroxyVitamin D 25 hydroxy Lab Routine Insulin controlled gestational diabetes mellitus (GDM) in second trimester 1 Occurrences starting 12/03/2024 until 12/03/2025[facility] Work Phone: comment on above:1 Occurrences starting 12/03/2024 until 12/03/2025[facility] Immunizations Immunization DateImmunizationNotesCare GaybxuqtHtwhxyvi11-92-6288dvtyykzqn virus vaccine, unspecified formulationKristofer Calix MD Work Phone: [facility] DaytonAuaain25-20-7685mxroupq toxoid, reduced diphtheria toxoid, and acellular pertussis vaccine, adsorbedMa Sand Work Phone: [facility] DaytonNEGATED: Highlighted row has not occurred!28-88-4661tmmydfzpw virus vaccine, unspecified formulationScott PRAVEEN [phone]-KjpilCleveland Clinic [facility] General Primary CareNEGATED: Highlighted row has not occurred!40-94-4287zlymeblro virus vaccine, unspecified formulationPERNELL LONGORIA [phone]-AdcvxCleveland Clinic [facility] [place] Payers DatePayer CategoryPayerPolicy [id number] 2021Medicaid [place] [employer] MEDICAID [id number] 2020-Present [phone] [address] [place] [address] [id number] [id number]5 2021Medicaid 1.2.840.849467.1.13.159.2.7.3.210[id number] 2.16.840.1.019372.3.579.2.33371-69-7854Dinzofn167273375 2.16.840.1.342705.3.579.2.50227-29-9001Joqdoms289969874 2.16.840.1.974478.3.579.2.02857-71-0991Tkjqjqe1387232 2.16.840.1.622081.3.579.2.74937-45-1309Ubdnlyi2368510 2.16.840.1.237758.3.579.2.58884-16-9715Zzkzhmh0047274 2.16840.1.864257.3.579.2.32156-17-9645Jntjuqd8945519 2.16840.1.315419.3.579.2.49085-02-3856Qewqtge8179383 2.16.840.1.854914.3.579.2.55182-27-3507Yhmozdp9979603 2.16.840.1.861334.3.579.2.11995-14-9072Mzvmunq4867902 2.16.840.1.097562.3.579.2.76763-12-1748Wcazuwp7459553 2.16.840.1.360140.3.579.2.13184-47-6116Fptjxcm7215396 2.16.840.1.398232.3.579.2.53484-53-5913Bkmvjtx4919793 2.16.840.1.279939.3.579.2.41106-41-3507Atfftww3984512 2.16840.1.901630.3.579.2.06725-70-2305Uyymsuv7924712 2.16840.1.082481.3.579.2.46799-94-9471Uxsdhhp7585166 2.16840.1.764462.3.579.2.14886-84-0332Ijfdjoj5701236 2.16840.1.305064.3.579.2.87537-29-0631Nthjdni5975514 2.16840.1.550370.3.579.2.16543-66-4168Aodbquj9446166 2.16840.1.764746.3.579.2.71720-54-1025Ydynzqw3997060 2.840.1.790563.3.579.2.64625-49-6752Eoeqbqi2785413 2.840.1.583646.3.579.2.38543-18-3277Vvhbpwy8759955 2.840.1.006517.3.579.2.37363-34-3538Qqbcbvt7211078 2.840.1.854351.3.579.2.82922-44-6186Ebuoxbg3471679 2.840.1.089746.3.579.2.39097-60-2207Elyxvjm2383375 2.840.1.813675.3.579.2.57909-55-8757Xlzcpmh1071340 2.16840.1.180392.3.579.2.49752-60-7806Oncopjz3927628 2.16840.1.547000.3.579.2.41151-85-3710Rtvwzjc9398989 2.16840.1.200500.3.579.2.02776-72-7749Gsqihua6987996 2.16840.1.426624.3.579.2.85650-12-3218Idpdiog64943427 2.16840.1.763922.3.579.2.71175-17-4311Qbhbtkh62562442 2.16840.1.734353.3.579.2.14666-84-8076Aykwotn56828489 2.16840.1.185585.3.579.2.60337-38-7969Tvauxjy70542574 2.16840.1.442899.3.579.2.32283-71-7175Rqxgmtu47455218 2..1.814155.3.579.2.61170-55-3247Nmhblqp74025846 2..1.386297.3.579.2.79772-60-9184Cwrpfqc38164115 2.840.1.433003.3.579.2.54682-33-2454Kbqknsu14235060 2.0.1.710919.3.579.2.39611-95-8999Ykfkmmz65648622 2.0.1.571071.3.579.2.14591-41-6111Quddnod42564917 2..1.483468.3.579.2.05964-38-6272Zcgmxtg88130029 2.16840.1.350578.3.579.2.40263-03-9053Mlcljhg15277015 2.16840.1.702391.3.579.2.92595-01-3482Gjrzvar83717714 2.16840.1.044236.3.579.2.58762-40-5988Tleucay97013961 2.16840.1.499172.3.579.2.64171-96-4223Pnafold71103068 2.16840.1.592210.3.579.2.66508-46-9692Dagfixs71766192 2.16840.1.100231.3.579.2.57574-51-8146Efbfhoy44364776 2.16840.1.486433.3.579.2.91200-85-6766Crptyru29303131 2.840.1.595182.3.579.2.21620-60-4963Btkbjwa78818583 2.0.1.875731.3.579.2.95320-15-2866Iqzyzch34465645 2.840.1.973413.3.579.2.11453-63-1161Vovoibf89249199 2.0.1.637635.3.579.2.40800-69-4586Qpwjzjq56282207 2.840.1.251412.3.579.2.68582-69-5610Iganlpk26337903 2.0.1.675997.3.579.2.97775-03-5644Wtnfmqh64634892 2.840.1.121082.3.579.2.94575-42-5886Qimnldx45729807 2.0.1.271245.3.579.2.82866-42-2131Umrrfks91394391 2.840.1.601623.3.579.2.60610-83-4757Rxtqgrb84048784 2.840.1.332303.3.579.2.31481-70-1680Czbixih51414231 2.840.1.897829.3.579.2.16619-13-1144Hqugyfi32316083 2.16840.1.639635.3.579.2.24383-54-9945Qfxjedt20191000 2.16840.1.640397.3.579.2.68055-72-3461Sphjerb33140344 2.16840.1.742724.3.579.2.78636-41-5138Vgcwpev15131337 2.16840.1.827963.3.579.2.84515-18-7606Pkblnqc35133083 2.16840.1.128602.3.579.2.56826-62-6444Xlmhrrf65097319 2.0.1.383748.3.579.2.68788-42-2042Enwtrge28345140 2.0.1.963695.3.579.2.17633-57-4758Nwhcviz86163969 2.840.1.308083.3.579.2.89557-64-6251Pnkwdpb13721504 2.840.1.294327.3.579.2.62931-37-3744Nzpjkgr84439502 2.840.1.410239.3.579.2.39074-88-9511Uqliipn64027109 2.0.1.554476.3.579.2.67868-31-0046Pkulobe47904545 2.840.1.928574.3.579.2.25221-75-1823Rxjoawt99248355 2.840.1.913953.3.579.2.06565-86-7846Lsrnisx53035694 2.16840.1.189304.3.579.2.93552-86-7146Apcqkqq65771096 2.840.1.956661.3.579.2.98321-58-7170Doibjrg73584453 2.16840.1.969725.3.579.2.25773-12-4968Iipihtu961192758 2.16840.1.318121.3.579.2.823238-02-8324Tznwkio449775286 2.16840.1.667407.3.579.2.335590-25-7199Ejqtvze424982306 2.16840.1.657146.3.579.2.942947-89-3171Dndrpqp73024676 2.840.1.605057.3.579.2.30910-91-6911Uxzqjpl78042196 2.840.1.272826.3.579.2.773000-72-5077Awidsae75004047 2.840.1.850793.3.579.2.098894-11-2545Afriidr27975794 2.840.1.958601.3.579.2.462653-69-4548Nnooxub42552634 2.840.1.645291.3.579.2.293176-60-2829Zafenou25916973 2.840.1.755622.3.579.2.740299-80-1805Qgdyljy33610613 2.840.1.265027.3.579.2.554126-14-2989Mvxgune25318008 2.840.1.955648.3.579.2.353096-56-6132Jwqzppg95726936 2.840.1.236331.3.579.2.824802-38-2909Vrzgnhc50109836 2.16840.1.222601.3.579.2.846414-86-8296Euclhbr46075931 2.16840.1.655584.3.579.2.936501-30-0077Eewzmvl5217007 2.16.840.1.849164.3.579.2.213213-09-8551Ggfuacu5279257 2.16840.1.206220.3.579.2.935097-24-8681Yzvjept1688497 2.16840.1.601777.3.579.2.695436-65-6140Leaaqyc2850251 2.16840.1.377623.3.579.2.592272-56-3860Ztygvtu7514587 2.0.1.101898.3.579.2.309703-69-1880Scnjgyk0057724 2.840.1.514290.3.579.2.282726-23-6751Koiblot151621085 2.840.1.043710.3.579.2.607119-92-3170Cbplwsv984034710 2.840.1.230953.3.579.2.764038-34-8337Zoqbliz337311471 2.840.1.164626.3.579.2.762279-73-9704Cqprwrg260803238 2.840.1.277179.3.579.2.195184-48-4037Vjowjje773965624 2.840.1.919843.3.579.2.378461-95-5813Intjfte501874904 2.16840.1.120187.3.579.2.954144-28-2649Smsmzqf422739581 2.16840.1.338284.3.579.2.473331-10-6488Zknengq853716179 2.16840.1.429566.3.579.2.071750-70-8272Blmh-gub31-44-8308VrbejpfX0447843070 44-06-4992Hkgnfut61600447051 1.2.840.299953.1.13.239.2.7.3.620445.315Unknown 2812900 2.16.840.1.031099.3.579.2.593 Social History DateTypeDetailFacilityStart: 09-10-2017 End: 69-42-1440Ozjgmvi smoking status NHISNever smoked tobaccoKindred Hospital Dayton Start: 09-10-2017 End: 37-51-8240Mbxphvh use and exposureSmokeless tobacco non-userProMedica Toledo Hospitaltart: 08-01-2021 End: 74-39-5225Bfxuaqd intakeCurrent non-drinker of alcohol (finding)[facility]: 70-24-3678Gft Assigned At BirthNot on fileProMedica Toledo Hospitaltart: 07-22-2021 End: 66-29-2479Mkvhvlua to SARS-CoV-2 (event)Not sureProMedica Toledo Hospitaltart: 05-28-2017 End: 73-70-1699Hdbuhse smoking statusNeverC[facility] Clinic [facility] Start: 06-10-2020 End: 92-43-7242Kyo Assigned At BirthFemalW[facility] Start: 11-21-2021 End: 66-07-5987Lydrmau intakeEx-drinker (finding)[facility] Work Phone: start: 95-66-9550Zngyikl SDOH Alcohol Comment occasionallyBON [facility] Phone: start: 91-69-9610JmthukywGEX [facility] Phone: start: 06-10-2020 End: 77-18-5890Madrlwq of Social functionProMedica Toledo Hospitaltart: 04-04-2024 End: 74-75-4350Eddmekqei beverage intakeLifetime non-drinker (finding)[facility] HealthcareTobacco smoking status VAISUnknown if ever smokedTwin City Hospital Work Phone: Start: 11-27-2018 End: 75-98-0601VdtPdzwwy (finding)[facility] Cent[facility]art: 42-27-5945Ogh Assigned At [facility] Medical Equipment Procedure CodeEquipment CodeEquipment Original TextEquipment IdentifierDates [id number]: 10-30-2024 End: each by In Vitro route Daily Use to check FSBS four times daily [id number]: 10-30-2024 End: 69-11-6217Vet a new needle with each injection ( 1- 5 times per day) [id number]: 12-03-2024 Functional Status XkxkCzmfnzodmoZbstxeBtmdnslv66-44-5612Bgmrxhi Health Questionnaire 2 item (PHQ- 2) [Reported][facility] HospitalLdomtmeoey71-13-4002Dvfdhtz Health Questionnaire 2 item (PHQ- 2) [Reported][facility] HospitalFvwqtxnnnv50-04-6481Pxeddfxifa StatusN/[facility] Primary Yvta90-43-3774Tuwwjejios StatusN/[facility] Family Medicine Fqyfd56-56-6185Fwaadqnbhy StatusN/[facility] Primary Canh42-32-3138Jguqtfjubf StatusN/[facility] Primary Qtzf18-11-2862Seqzvfjqdf StatusN/[facility] Convenient Care 02-66-0446Zqbujpmwku StatusN/[facility] Primary Upry18-44-1236 Functional StatusN/[facility] Primary Hxjj76-72-8323Mgmrpnugno StatusN/[facility] Convenient Siqx83-64-1002Stcadkzdvy Status N/[facility] Primary Xrgs72-48-5009Xzzsgimzty StatusN/[facility] Primary Qdkh79-04-4747Mrudamtbbr StatusN/[facility] Primary Cdvd61-77-2941Mkybeeeyjw StatusN/[facility] Primary Care Clinical Notes 07-26-2019 to 03-11-2025 Note Date & JigeQbmlBhncatuf63-88-3585 History of Present illness Narrative* Charles Cortes [...] age) multigravida 35+ Antiphospholipid syndrome Hypothyroid Stroke ([facility]) Gestational diabetes mellitus (GDM) in second trimester [...] antibody syndrome Cerebral infarction, unspecified ([facility]) 05/16/2019 Hypothyroid Migraine without aura and without status migrainosus, not intractable 09/12/2017 Stroke ([facility]) 2015 REVIEW OF SYSTEMS: Head and Neck: [...] for allowing me to participate in Sanna Rednon care. If there are any questions, please do not hesitate to call me. Sincerely, CHARLES CORTES MD Video Visit via Real-time Synchronous Audiovisual Provider Location: [facility]ICINE AT [address] [phone] Patient Location: Patient's home Patient Location Microfilm Duplicating Unit Supervisor: None Video Visit Consent Statement: I discussed [...] that there are some limitations compared to npbx-ck-vtsp evaluations. We elected to proceed. documented in this encounterCincinnati VA Medical CenterMedichanical Engineering Caro CenterPcxctm19-18-8056 NoteHNO ID: [id number] Author: KATHERINE NEGRETE APRN.ART HISTORY INSTRUCTOR Service: ? Author Type: Nurse Practitioner Type: Progress Notes Filed: 03/02/2025 20:18 Note Text: NAME: Sanna Rendon CLINIC NO.: [id number] DATE OF SERVICE: March 02, 2025 (Penelope) [...] later in 2018. These were found in [place], [place]. I don't have access to these [...] a target-like rash shortly before [facility] with headaches and [...] SUMMARIZED PLAN OF CARE: Continue Lovenox Saw [facility] and patient increased Lovenox to 40 mg [...] She has a h (more content not included)...[place] [address]27-2025 History of Present illness Narrative* Rosi Murray, TRACK TEMPLATE MAKER - 02/23/2025 9:00 AM EDT Reason for [...] infarction, unspecified ([facility]) 05/16/2019 Cerebrovascular accident (CVA) due to stenosis of middle cerebral artery ([facility]) 02/22/2020 Cervicalgia 02/05/2019 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 Exam conducted with a lens cleaner present. Vitals: Estimated body mass index is 33.98 kg/m as calculated from the following: Height as of 11/19/23: 5' 6 . Weight as of this encounter: 210 lb 8 oz. BP: 116/72 Patient's last menstrual period was 07/28/2024. Assessment/Plan ICD-10-CM 1. Third trimester ([facility]) Z34.93 2. 30 weeks gestation of ([facility]) Z3A.30 POCT urinalysis dipstick manually resulted Patient [...] of: Wilton Herrmann DO documented in this encounterCedar County Memorial HospitalHooyrbceeu21-91-0744 History of Present illness Narrative* Sam Callahan MD MPH - 02/16/2025 1:45 PM EDT Images from the original note were not included. ADULT RHEUMATOLOGY CLINIC NOTE [address] [address] Patient Name: Sanna Rendon Subjective Reason for [...] following with two outside specialists (Neurology at [facility] and Hematology at [facility]) for management of her APS. The [...] health issues unclear exact diagnoses Note from [facility] Provider (Dr. Noyola): Recent note from [...] 35+ Antiphospholipid syndrome Hypothyroid Stroke ([facility]) Gestational diabetes mellitus (GDM) in second trimester [...] antibody syndrome Cerebral infarction, unspecified ([facility]) 05/16/2019 Hypothyroid Migraine without aura and without status migrainosus, not intractable 09/12/2017 Stroke ([facility]) 2016 reviewed. Social History Social History Narrative [...] weeks . She is currently following with [facility] for her , neurology through the [facility], and hematology through [facility]. Based on extensive review of her [...] Expiration Date: 02/16/2026 Release to patient via Setera Communicationst?: Immediate [1] Complement profile (C3 AND C4) Standing Status: Future Expiration Date: 02/16/2026 Release to patient via [employer] IOhart?: Immediate [1] DNA double-stranded (dsDNA) Abs by Rene angel IFA Standing Status: Future Expiration Date: 02/16/2026 Release to patient via [employer] IOhart?: Immediate [1] KELLEN Panel Standing Status: Future Expiration Date: 02/16/2026 Release to patient via [employer] IOhart?: Immediate [1] Treatment Plan: -if the patient [...] visit is OK Sam Callahan MD, MPH [facility] [address] [place] [address] Total gtcs-lt-ratf time was 55 minutes with more than [...] you for your understanding. documented in this encounterMetroHealth [facility] Center10-14-2025 Miscellaneous Notes* Telephone Encounter - [...] sugars weekly. documented in this encounterSt. Albans HospitalTurned On Digital10-14-2025 Telephone encounter Note* Telephone Encounter - PRISCILLA [...] Continue to send in blood sugars weekly. 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) use of antithrombotics/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 02/05/2019 Migraine without aura and without status migrainosus, not intractable 09/12/2017 Morbid obesity ([facility]) 11/15/2023 Muscle fasciculation 08/19/2021 Nasal polyps 11/15/2023 [...] (supraventricular tachycardia) ([facility]) 08/26/2019 Syncope and collapse 06/03/2018 Other bacterial infections of unspecified site 06/27/2019 Thrombocytopenia, unspecified 11/20/2019 Hypoglycemia 06/12/2023 Unspecified condition associated with female genital organs and menstrual cycle 05/09/2019 Unspecified ovarian cyst, right side 02/06/2019 Urinary tract infection 10/16/2019 Referred otalgia of right ear 11/19/2023 LPRD (laryngopharyngeal reflux disease) 11/19/2023 H/O loss 01/05/2025 Multigravida of advanced maternal age in second trimester ([facility]) 01/05/2025 Thyroid disease 01/05/2025 Resolved Ambulatory Problems Diagnosis Date Noted No Resolved Ambulatory Problems Past Medical History: Diagnosis Date AMA (advanced maternal age) multigravida 35+ ([facility]) Anemia Antiphospholipid syndrome ([facility]) Gestational diabetes ([facility]) Heartburn Hypothyroid Stroke ([facility]) HISTORY PAST MEDICAL HISTORY SOCIAL HISTORY Past Medical History: Diagnosis Date AMA (advanced maternal age) multigravida 35+ ([facility]) Anemia Antiphospholipid syndrome ([facility]) Gestational diabetes ([facility]) Heartburn Hypothyroid Stroke ([facility]) Social History Tobacco [...] nursing note reviewed. Exam conducted with a lens cleaner present. Vitals: Estimated body mass index is 34.12 kg/m as calculated from the following: Height as of 11/19/23: 5' 6 . Weight as of this encounter: 211 lb 6.4 oz. BP: 124/76 Patient's last menstrual period was 07/28/2024. ASSESSMENT & PLAN ICD-10-CM 1. Third trimester ([facility]) Z34.93 2. 28 weeks gestation of ([facility] [...] and they were also faxed to [facility] and [facility] Scheduling. Patient to return to clinic in 2 weeks for routine OB appointment. Documented by Rosi Murray LPN on behalf of: Wilton Herrmann DO documented in this encounterCedar County Memorial HospitalNwaoeelltn87-40-3506 History of Present illness Narrative* Mukul Noyola MD - 02/06/2025 2:00 PM EDT Images from the original note were not included. Video Visit via Real-time Synchronous Audiovisual Provider Location: [facility]INE AT [address] [phone] Patient Location: Other Home Patient Location Microfilm Duplicating Unit Supervisor: None Video Visit Consent Statement: I discussed [...] that there are some limitations compared to jqbo-dx-vyxy evaluations. We elected to proceed. [facility] Maternal- Medicine Office Note Reason For [...] will be undergoing genetic testing through the scada engineer. There is family history of hypospadias and [...] antibody syndrome Cerebral infarction, unspecified ([facility]) 05/16/2019 Hypothyroid Migraine without aura and without status migrainosus, not intractable 09/12/2017 Stroke ([facility]) 2016 PSHIST: Past Surgical History: Procedure Laterality [...] to continue to send blood glucoses to [facility] to review - continue Lovenox 40 [...] Mukul Noyola MD, FACOG (she/hers) Maternal- Medicine [facility] [address] [facility] [address] [place] [address] This document was created with [email or web address] technology. Though I make every effort to review the dictation as it is transcribed, on occasion the spoken word can be misinterpreted by the technology leading to inappropriate words, phrases, or sentences. This note is addressed to the requesting provider as a consultation for clinical guidance. Specificmedical abbreviations are occasionally used and those are generally approved by the [place]?Board of?Obstetrics and?Gynecology?as well as?Elizabeth s abbreviations. The above plan of care was based solely on the diagnoses for which a consultation was requested. ?More frequent testing may be indicated based on her other medical/obstetrical conditions. The management of other or medical conditions is beyond the scope of requested consultation and will c ontinue to be followed by the primary partnership development manager or primary care provider. Note to [...] opinion of the practitioner. documented in this encounterCincinnati VA Medical CenterMedichanical Engineering Caro CenterXwwgvi44-74-5254 NoteEchocardiology Procedure Exam Date/Time Accession # Ordering Dr. Echo Transthoracic 02/03/2025 10:00 EDT [id number] Wilton HERRMANN DO Complete CPT code 46136 88392 Reason for Exam (Echo Transthoracic Complete) Dizziness and giddiness E07.9, O09.522 R42 Report [facility] [address] [place] [address] Adult Echocardiogram Report Name: SANNA RENDON Study Date: 02/03/2025 08:09 AM BP: 116/76 mmHg Patient Location: FT CAR F HR: 84 : 1985 Gender: Female Height: 66 in Age: 39 yrs Ethnicity: 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 Exam conducted with a lens cleaner present. Vitals: Estimated body mass index is [...] to switch her Lovenox and Metformin to [facility] pharmacy. Growth ultrasound at28 weeks as well as NST and BPP at 28 weeks. Documented by Celia Keith NP on behalf of: Wilton Herrmann DO documented in this encounterCedar County Memorial HospitalFkbwygfjwd81-98-4169 History of Present illness Narrative* Roxana Mays PA-C - 01/13/2025 10:00 AM EDT Maternal- Medicine Consultation VIDEO Patient is present at home , provider present at [facility] HISTORY OF PRESENT ILLNESS: Sanna Rendon is [...] more likely to fail compared to insulin. wool hat forming machine tender data on children whose mothers took oral [...] so she can have them done at [place] - Anatomy survey with MFM -followsup [...] by e-mail to: or by fax to: [phone] Roxana Mays PA-C Maternal- Medicine Office phone: [phone] Roxana Mays PA-C 01/13/25 1031 documented in this encounterCincinnati VA Medical CenterMedichanical Engineering [facility] [id number] Miscellaneous Notes* Medical Student - Mike Aquino [...] the legal medical record. [facility] Progress note* Medical Student - [...] a part of the legal medical record. [facility]09[facility] Miscellaneous Notes* Telephone Encounter - [...] answered. MUKUL NOYOLA MD documented in this encounterMet[facility]09-[facility]-2025 Telephone encounter Note* Telephone Encounter [...] questions and concerns answered. MUKUL NOYOLA MD [facility] [id number] Miscellaneous Notes* Telephone Encounter - Jacque Pat RN - 01/07/2025 10:29 AM EDT Tag Writer called and spoke to patient yesterday to discuss a several topics. Tag Writer asked if patient wanted another follow up cervical length. Patient declined. We also discussed her insulin dosage. Patient had not started her NPH insulin yet because her pharmacy did not notify her it was ready for pickup. She asked if she could start at 4 units instead of 8. She is worried because she had a bad reaction when she took Lantus previously. Tag Writer discussed this with Dr. Noyola and she is okay with her starting at a lower dose for now. Lastly, television script writer notified patient that Dr. Noyola wanted to discuss with her cashier manager her Lovenox dosing. Patient stated there was some confusion if she should be on 40mg or 80mg, patient prefers to be on the lower dose. Patient is seeing a Dr. Calix from the [facility] hematology office in [place]. Notified patient that we will reach out to her cashier manager to discuss her dosing. documented in this encounterCincinnati [facility] Medical CenterProvenance09-10-2025 Telephone encounter Note* Telephone Encounter - Jacque Pat RN - 01/07/2025 10:29 AM EDT Tag Writer called and spoke to patient yesterday to discuss a several topics. Tag Writer asked if patient wanted another follow up cervical length. Patient declined. We also discussed her insulin dosage. Patient had not started her NPH insulin yet because her pharmacy did not notify her it was ready for pickup. She asked if she could start at 4 units instead of 8. She is worried because she had a bad reaction when she took Lantus previously. Tag Writer discussed this with Dr. Noyola and she is okay with her starting at a lower dose for now. Lastly, television script writer notified patient that Dr. Noyola wanted to discuss with her cashier manager her Lovenox dosing. Patient stated there was some confusion if she should be on 40mg or 80mg, patient prefers to be on the lower dose. Patient is seeing a Dr. Calix from the [facility] hematology office in [place]. Notified patient that we will reach out to her cashier manager to discuss her dosing. 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 Exam conducted with a lens cleaner present. Vitals: Estimated body mass index is [...] of: Wilton Herrmann DO documented in this encounterCedar County Memorial [id number] History of Present illness Narrative* Jacque Pat RN - 01/05/2025 10:20 AM EDT NPH insulin prior authorization approved. Confirmed via telephone call with automated voice messaging system. Prior authorization number #[id number] documented in this encounterMetroHealth Cleveland Heights Medical Center09-04-2025 History of Present illness Narrative* Mukul Noyola MD - 01/01/2025 2:30 PM EDT Images from the original note were not included. Video Visit via Real-time Synchronous Audiovisual Provider Location: [facility] AT [address] [address] Patient Location: Other [facility] Patient Location Microfilm Duplicating Unit Supervisor: None Video Visit Consent Statement: I discussed [...] that there are some limitations compared to yuzc-me-gexu evaluations. We elected to proceed. [facility] Maternal- Medicine Consult Note Reason For [...] will be undergoing genetic testing through the scada engineer. There is family history of hypospadias and [...] antibody syndrome Cerebral infarction, unspecified ([facility]) 05/16/2019 Hypothyroid Migraine without aura and without status migrainosus, not intractable 09/12/2017 Stroke ([facility]) 2015 PSHIST: Past Surgical History: Procedure Laterality [...] contrast; Future - [facility] - [place], [place]; Future 2. Antiphospholipid syndrome complicating , antepartum - Echo complete W/O contrast; Future - [facility] [place], [place]; Future 3. History of stroke 4. [...] intermittent symptoms concerning for an autoimmune condition [id number]. I recommended she sees a cloth presser. Referral given. I asked her to hold [...] supposed to undergo genetic testing with her scada engineer. After the patient left I found that [...] asymptomatic I recommend that she sees a airport screener and she desires referral locally. Recommendations: - increase metformin to 1500 mg at night - she is willing to try the NPH 8 units at night - to continue to send blood glucoses to [facility] to review - follow-up survey and [...] Mukul Noyola MD, FACOG (she/hers) Maternal- Medicine [facility] [address] [facility] [address] [place] [address] This document was created with [email or web address] technology. Though I make every effort to review the dictation as it is transcribed, on occasion the spoken word can be misinterpreted by the technology leading to inappropriate words, phrases, or sentences. This note is addressed to the requesting provider as a consultation for clinical guidance. Specificmedical abbreviations are occasionally used and those are generally approved by the [place]?Board of?Obstetrics and?Gynecology?as well as?Elizabeth s abbreviations. The above plan of care was based solely on the diagnoses for which a consultation was requested. ?More frequent testing may be indicated based on her other medical/obstetrical conditions. The management of other or medical conditions is beyond the scope of requested consultation and will c taniaue to be followed by the primary partnership development manager or primary care provider. Note to [...] male Have you been seen here at [facility] in a previous ? yes Recent ER visits or hospitalizations? Seen in L&D for cramping about 2 weeks ago Bring blood sugar log or meter with you today? (Please bring them with you for every visit at [facility]) scanned to media tab Flu vaccine (Feb-June)? no Any concerns that you would like me to mention to the provider today? No concerns documented in this encounterCincinnati VA Medical CenterPenn Truss Systems [id number] Miscellaneous Notes* Telephone Encounter - PRISCILLA Del [...] and basics of CGM explained. Will send [employer] Business Plan message with instructions on how to connect to our [facility] account. Explained how to prudence notes on the Jenifer kennedy for fasting BG and meals. documented in this encounterCincinnati VA Medical CenterMedichanical Engineering Caro CenterQnrluj24-22-5139 Telephone encounter Note* Telephone Encounter - PRISCILLA [...] and basics of CGM explained. Will send [employer] Business Plan message with instructions on how to connect to our [facility] account. Explained how to prudence notes on the Jenifer kennedy for fasting BG and meals. [employer]08-26-2025 NoteHNO ID: [id number] Author: KATHERINE NEGRETE APRN.ART HISTORY INSTRUCTOR Service: ? Author Type: Nurse Practitioner Type: Progress Notes Filed: 12/24/2024 21:07 Note Text: NAME: Sanna Rendon CLINIC NO.: [id number] DATE OF SERVICE: December 23, 2024 (Penelope) [...] later in 2018. These were found in [place], [place]. I don't have access to these [...] a target-like rash shortly before presenting to [facility] in 2016 with headaches [...] g/dL, and platelets a (more content not included)...[facility]08-26-[facility] History of Present illness Narrative* Katherine Negrete APRN.ART HISTORY INSTRUCTOR - 12/23/2024 11:50 AM EDT Images from the original note were not included. NAME: Sanna Rendon CLINIC NO.: [id number] DATE OF SERVICE: December 23, 2024 (Penelope) [...] later in 2018. These were found in [place], [place]. I don't have access to these [...] a target-like rash shortly before presenting to [facility] in 2016 with headaches [...] Monge soon. When she hada stroke in [place], she had symptoms up to a month before: uncontrollable headache, BP was elevated, knee stiffness, and blurry vision. Right facial drooping and difficulty speaking [facility] She continues to take vitamins. Updated [...] and stayed on Lovenox Hgb 13.1 @ [facility] Recommended ER if persisting bleeding but she [...] and at age 69. Both lived in [place], [place] - but she was adopted. She was not able to see ID in October and will be seeing Dr. Baugh next week. Also will have her see Dr. Hamlin for her clotting disorder and make any other recommendations to optimize her treatment. Updated Visit, October 08, 2020: Telephone only Received call from pt stating she was seen in [facility] ER for numbness in her chest, throat, and extremities, and sob which has been worsening over the last week. We arranged a telephone visit for her toreview questions with me. Sanna Rendon is a 34 year old female seen for Hypercoagulable state and recent concerns and symptoms that required her to be seen at [facility] ER. She went to the ER with Gradual worsening of breathing after progressive tingling of fingers and legs. She currently remains very fatigued even though she is sleeping well. Now recalls that before her stroke she remembers having a bull's eye rash and was seen with severe headaches in [place], [place] - was found to have a [...] a root canal and was sent to [facility] for MRI which was negative but non-contrasted. [...] history goes back to January 2016 in [facility] where she had persisting headaches and slurred speech followed by lower extremity weakness. This took a few months to resolve and she is back to her normal state of being but some point in time during her her next she was seen by Dr. Humera Hyde in [place] as well and was found to have [...] which included preparing to see the patient, zqet-ac-xvts patient care, completing clinical documentation, obtaining and/or reviewing separately obtained history, performing a medically appropriate examination, counseling and educating the pat ient/family/caregiver, ordering medications, tests, or procedures, independently interpreting results (not separately reported), and communicating results to the patient/family/caregiver. Katherine Negrete APRN.CNP Hematology and Oncology Services Provided at: [place], [place] CC: MD Wilton Day, [address] [place] [address] Humaira Gaviria MD [address] [place] [id number] MD Cosmo Kingston MD Michael Blank, MD documented in this encounterKindred Hospital [facility]08-20-2025 History of Present illness Narrative* Alisa Saba APRN-ART HISTORY INSTRUCTOR - 12/17/2024 3:30 PM EDT REASON FOR OFFICE VISIT: Video Visit via Real-time Synchronous Audiovisual Provider Location: [facility] AT [address] [address] Patient Location: Patient's home Video Visit Consent [...] that there are some limitations compared to elpe-ff-btrc evaluations. The patient consented to the presence [...] TSH 1.25 10/28/2024 No results found for: [id number] No results found for: CREATININE , BUN [...] by e-mail to: or by fax to: [phone] TIME OF CONSULTATION: 45 minutes with the patient, >50% in discussion and counseling, coordination of care which was cxvo-tj-tenm, review of records and communication back to referring provider. BRENNEN Guillen 12/17/24 1619 documented in this encounterMetroHealth Cleveland Heights Medical Center08-15-2025 Miscellaneous Notes* Telephone Encounter - [...] 12/17/2024. Sanna verbalized understanding. documented in this encounterMetroHealth Cleveland Heights Medical Center08-15-2025 Telephone encounter Note* Telephone Encounter [...] Alisa Saba APRN 12/17/2024. Sanna verbalized understanding. [facility] health Work Phone: 1(136) 425-485308-15-2025 Miscellaneous Notes* Telephone Encounter - PRISCILLA Sutherland [...] tried higher fiber snacks in the evening. Tag Writer told her that I would relay her concerns to [facility] physician and get back to her. Obtained blood sugars for this week and will scan them into her chart. documented in this encounterMetroHealth Cleveland Heights Medical Center08-15-2025 Telephone encounter Note* Telephone Encounter [...] tried higher fiber snacks in the evening. Tag Writer told her that I would relay her concerns to [facility] physician and get back to her. Obtained blood sugars for this week and will scan them into her chart. 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 Exam conducted with a lens cleaner present. Vitals: Estimated body mass index is [...] scan and Telemedicine with MFM provider in [place]. Documented by Rosi Murray LPN on behalf of: Wilton Herrmann DO documented in this encounterCedar County Memorial [id number] Miscellaneous Notes* Telephone Encounter - Anni Abreu CMA - 12/03/2024 3:01 PM EDT Left message with patient to call our office to schedule her next appt in 2 week with an COMPUTER SYSTEMS AUDITOR/PA. Left call back number and to press option 3 for scheduling. documented in this encounterMetroHealth Cleveland Heights Medical Center08-06-2025 Telephone encounter Note* Telephone Encounter - Anni Abreu CMA - 12/03/2024 3:01 PM EDT Left message with patient to call our office to schedule her next appt in 2 week with an COMPUTER SYSTEMS AUDITOR/PA. Left call back number and to press option 3 for scheduling. [facility]08-06-2025 History of Present illness Narrative* Alisa Tori, VICTOR HUGO-ART HISTORY INSTRUCTOR - 12/03/2024 2:00 PM EDT REASON FOR OFFICE VISIT: Med start 1. GDMA2; A1c 5.9% 2. On Metformin since 4th child 3. Hx GDMA2 4. AMA - cf DNA low risk boy HISTORY OF PRESENT ILLNESS: Sanna Rednon is a pleasant 39 y.o. at 18w2d [...] TSH 1.25 10/28/2024 No results found for: [id number] No results found for: CREATININE , BUN [...] baby. Little research has been done on studio control operator effects of Metformin exposure to the fetus. [...] by e-mail to: or by fax to: [phone] TIME OF CONSULTATION: 60 minutes with the patient, >50% in discussion and counseling, coordination of care which was qpez-ji-bieu, review of records and communication back to referring provider. 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) use of antithrombotics/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 02/05/2019 Migraine without aura and without status migrainosus, not intractable 09/12/2017 Morbid obesity ([facility]) 11/15/2023 Muscle fasciculation 08/19/2021 Nasal polyps 11/15/2023 [...] (supraventricular tachycardia) ([facility]) 08/26/2019 Syncope and collapse 06/03/2018 Other bacterial [...] AMA (advanced maternal age) multigravida 35+ ([facility]) Anemia Antiphospholipid syndrome ([facility]) Gestational diabetes ([facility]) Heartburn Hypothyroid Stroke ([facility]) HISTORY PAST MEDICAL HISTORY SOCIAL HISTORY Past Medical History: Diagnosis Date AMA (advanced maternal age) multigravida 35+ ([facility]) Anemia Antiphospholipid syndrome ([facility]) Gestational diabetes ([facility]) Heartburn Hypothyroid Stroke (HCC) Social [...] nursing note reviewed. Exam conducted with a lens cleaner present. Vitals: Estimated body mass index is [...] of: Wilton Herrmann DO documented in this encounterCedar County Memorial HospitalXkprfcammd92-03-5210 Group counseling note* Group Note - Cindy [...] Face to face time was 100 minutes. [employer] Work Phone: 1(184) 254-956807-23-2025 Miscellaneous Notes* Group Note - iCndy Miller RD - 11/19/2024 9:30 AM EDT [...] time was 100 minutes. documented in this encounterMetroHealth Cleveland Heights Medical Center07-09-2025 Telephone encounter Note* Telephone Encounter [...] is scheduled for appt with high school math tutor, 11/19/24, [facility]. She denies further questions, needs or concerns for our care team at this time. Appt verified for RTC Rachael Johnson RN [facility]07-09-2025 Miscellaneous Notes* Telephone Encounter - Rachael Johnson RN - 11/05/2024 12:48 PM EDT Pt updated. She reports she is unable to take aspirin. It makes my electrolytes go out of whack. Ididn't take with my previous pregnancies and I am not comfortable taking this time either. She will continue with Lovenox, as recommended. Pt is scheduled for appt with high school math tutor, 11/19/24, [facility]. She denies further questions, [...] note were not included. documented in this encounterKindred Hospital Dayton07-09-2025 Telephone encounter Note * Telephone Encounter - Katherine Negrete APRN.CNP - 11/05/2024 12:29 PM EDT Spoke with Dr. Moscoso and she is to continue Lovenox 40 daily and add baby asa (81 mg) daily. Please also make sure she is following OB High risk. Labs acceptable at this time. Will monitor. Thanks, Katherine Negrete APRN.ART HISTORY INSTRUCTOR [facility] Work Phone: [phone]) [phone] Telephone encounter Note* Telephone Encounter - Abbie Jimenez PA-C - 11/04/2024 8:13 AM EDT Katherine saw this patient last and will be able to advise better of the plan of care. 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 [...] 8 weeks gestation of ([facility]) 06/05/2019 correction (current) use of antithrombotics/antiplatelets 02/05/2019 Migraine without aura and without status migrainosus, not intractable 09/12/2017 Morbid obesity ([facility]) 11/15/2023 Muscle fasciculation 08/19/2021 Nasal polyps 11/15/2023 [...] (supraventricular tachycardia) ([facility]) 08/26/2019 Syncope and collapse 06/03/2018 Other bacterial [...] AMA (advanced maternal age) multigravida 35+ ([facility]) Anemia Antiphospholipid syndrome ([facility]) Gestational diabetes ([facility]) Heartburn Hypothyroid Stroke ([facility]) HISTORY PAST MEDICAL HISTORY SOCIAL HISTORY Past Medical History: Diagnosis Date AMA (advanced maternal age) multigravida 35+ ([facility]) Anemia Antiphospholipid syndrome ([facility]) Gestational diabetes ([facility]) Heartburn Hypothyroid Stroke ([facility]) Social History Tobacco Use Smoking status: Never [...] nursing note reviewed. Exam conducted with a lens cleaner present. Vitals: Estimated body mass index is [...] undercooked meat, and stay away from [facility]. Patient has been consulted regarding any further do's and don'tsof . Patient voiced understanding and all questions and concerns were answered. Patient is currently on 40 Lovenox and will be referred to [facility] for recommendations/co-management throughout . Discussed concerns [...] of: Wilton Herrmann DO documented in this encounterCedar County Memorial [id number] Telephone encounter Note* Telephone Encounter - Valeri Yeung RN - 10/30/2024 8:30 AM EDT Labs resulted. Please advise. Valeri Yeung RN [facility]07-01-2025 Telephone encounter Note* Telephone Encounter - Roberta Haskins - 10/28/2024 2:52 PM EDT Images from the original note were not included. [facility]07-01-2025 NoteHNO ID: [id number] Author: KATHERINE NEGRETE APRN.ART HISTORY INSTRUCTOR Service: ? Author Type: Nurse Practitioner Type: Progress Notes Filed: 10/29/2024 21:44 Note Text: NAME: Sanna Rendon CLINIC NO.: [id number] DATE OF SERVICE: October 28, 2024 (Penelope) [...] later in 2018. These were found in [place], [place]. I don't have access to these [...] a target-like rash shortly before presenting to [facility] in 2016 with headaches [...] vision changes both have (more content not included)...[facility]07-01-20[facility] History of Present illness Narrative* Katherine Negrete APRN.ART HISTORY INSTRUCTOR - 10/28/2024 2:33 PM EDT Images from the original note were not included. NAME: Sanna Rendon CLINIC NO.: [id number] DATE OF SERVICE: October 28, 2024 (Penelope) [...] later in 2018. These were found in [place], [place]. I don't have access to these [...] a target-like rash shortly before presenting to [facility] in 2016 with headaches [...] Monge soon. When she hada stroke in [place], she had symptoms up to a month before: uncontrollable headache, BP was elevated, knee stiffness, and blurry vision. Right facial drooping and difficulty speaking [facility] She continues to take vitamins. Updated [...] and stayed on Lovenox Hgb 13.1 @ [facility] Recommended ER if persisting bleeding but she [...] and at age 69. Both lived in [place], [place] - but she was adopted. She was not able to see ID in October and will be seeing Dr. Baugh next week. Also will have her see Dr. Hamlin for her clotting disorder and make any other recommendations to optimize her treatment. Updated Visit, October 08, 2020: Telephone only Received call from pt stating she was seen in [facility] for numbness in her chest, throat, and extremities, and sob which has been worsening over the last week. We arranged a telephone visit for her chanw questions with me. Sanna Rendon is a 34 year old female seen for Hypercoagulable state and recent concerns and symptoms that required her to be seen at [facility]. She went to the ER with Gradual worsening of breathing after progressive tingling of fingers and legs. She currently remains very fatigued even though she is sleeping well. Now recalls that before her stroke she remembers having a bull's eye rash and was seen with severe headaches in [place], [place] - was found to have a [...] a root canal and was sent to [facility] for MRI which was negative but non-contrasted. [...] history goes back to January 2016 in [facility] where she had persisting headaches and slurred speech followed by lower extremity weakness. This took a few months to resolve and she is back to her normal state of being but some point in time during her her next she was seen by Dr. Humera Hyde in [place] as well and was found to have [...] which included preparing to see the patient, guby-nh-pvyk patient care, completing clinical documentation, obtaining and/or reviewing separately obtained history, performing a medically appropriate examination, counseling and educating the pat ient/family/caregiver, ordering medications, tests, or procedures, independently interpreting results (not separately reported), and communicating results to the patient/family/caregiver. Katherine Negrete APRN.TOR Hematology and Oncology Services Provided at: [place], [place] CC: MD Chal[facility] [address] [place] [address] Humaira Gaviria MD 46 [place] [id number] MD Cosmo Kingston MD Michael Blank, MD documented in this encounterKindred Hospital [facility]06-27-2025 Telephone encounter Note * Telephone Encounter - Kaur Dunham MA - 10/24/2024 2:14 PM EDT New orders may need placed for appt on 10/28. Kaur Dunham MA [facility]06-27-2025 Miscellaneous Notes* Telephone Encounter - Kaur Dunham MA - 10/24/2024 2:14 PM EDT New orders may need placed for appt on 10/28. Kaur Dunham MA documented in this encounterKindred Hospital [facility]06-16-2025 Miscellaneous Notes* Telephone Encounter - Margo Khan RN - 10/13/2024 12:14 PM EDT Attempted to contact patient x3, call cannot be completed, cannot receive calls at this time. Unable to leave a voicemail. documented in this encounterMet[facility] Telephone encounter Note* Telephone Encounter - Margo Khan RN - 10/13/2024 12:14 PM EDT Attempted to contact patient x3, call cannot be completed, cannot receive calls at this time. Unable to leave a voicemail. 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 [...] Less than 8 weeks gestation of 06/05/2019 correction (current) use of antithrombotics/antiplatelets 02/05/2019 Migraine without aura and without status migrainosus, not intractable ([facility]) 09/12/2017 Morbid obesity ([facility]) 11/15/2023 Muscle fasciculation 08/19/2021 Nasal polyps 11/15/2023 [...] infections 01/16/2020 Pre-diabetes 11/15/2023 Primary hypercoagulable state ([facility]) 08/01/2022 Pruritus, unspecified 01/02/2020 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[facility]) 06/12/2023 Raised antibody titer 09/25/2017 Right lower quadrant pain 11/15/2023 Right otitis externa 11/15/2023 Salivary gland swelling 11/15/2023 Single live 01/15/2020 Snoring 11/15/2023 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) 12/30/2019 Suspected severe acute respiratory syndrome coronavirus 2 (SARS-CoV-2) infection 06/12/2023 SVT (supraventricular tachycardia) ([facility]) 08/26/2019 Syncope and collapse 06/03/2018 Other bacterial [...] Gestational diabetes Heartburn Hypothyroid (CMS/HCC) Stroke ([facility]) Family History Problem Relation Name Age of [...] TSH Nurse Note: Patient desires to have [place] billion to one. Pt was advised to [...] undercooked meat, and stay away from [facility]. Patient has also been advised to [...] by: Lala Hess MA documented in this encounterCedar County Memorial HospitalHmqqgwayvm06-94-2588 NotePatient Education Infectious Disease Upper Respiratory Infection, [...] to help relieve symptoms, such as: ??? Yfid-qhd-rnewecm cold medicines. ??? Cough suppressants. Coughing is [...] other clear broths. General instructions ??? Take qxjx-zqx-jlhwwew and prescription medicines only as told by [...] and water are not available, use hand [employer] rep. ??? Avoid touching your mouth, face, eyes, [...] a stiff neck. ? (more content not included)...[facility]05-07-2025 Miscellaneous Notes* Telephone Encounter - Rachael [...] advise Rachael Johnson RN documented in this encounterKindred Hospital [facility]05-07-2025 Telephone encounter Note * Telephone Encounter - Rachael Johnson RN - 09/03/2024 1:25 PM EDT Pt notified and appt for September. She denies any further questions, needs or concerns at thistime. Rachael Johnson RN [facility]05-07-2025 Telephone encounter Note* Telephone Encounter - Kristofer Calix MD - 09/03/2024 12:51 PM EDT No change in meds. [facility]05-06-2025 Telephone encounter Note* Telephone Encounter - Rachael Johnson RN - 09/02/2024 9:37 AM EDT Pt left a voicemail to inform she is approximately 5 weeks . She is asking any recommendations on med changes. Pt missed today's appt. Called and left VM to please call and schedule missed follow up MUNIRA. Fely: Please advise Rachael Johnson RN [facility]04-29-2025 Telephone encounter Note* Telephone Encounter - Serina Dawson MA - 08/26/2024 3:41 PM EDT Patient has an appt on 08/27/24. Would you like labs, if so place orders. Serina Dawson MA [facility]04-29-2025 Miscellaneous Notes* Telephone Encounter - Serina Horton MA - 08/26/2024 3:41 PM EDT Patient has an appt on 08/27/24. Would you like labs, if so place orders. Serina Dawson MA documented in this encounterKindred Hospital [facility]04-08-2025 Evaluation + Plan note Future Scheduled Tests Laboratory* HgbA1c 08/05/24 * HgbA1c 11/04/24 Radiology* CT Soft Tissue Neck w/ Contrast 11/12/23 [facility] 03-27-2025 History of Present illness Narrative* Rosi Spitler, TRACK TEMPLATE MAKER - 07/24/2024 11:50 AM EDT Reason for [...] Antiphospholipid antibody positive 09/10/2017 Antiphospholipid antibody syndrome ([facility]) 07/07/2019 Anxiety 06/12/2023 Blood pressure elevated without history of HTN 11/15/2023 BMI 37.0-37.9, adult 11/15/2023 Cerebral infarction, unspecified ([facility]) 05/16/2019 Cerebrovascular accident (CVA) due to stenosis of middle cerebral artery ([facility]) 02/22/2020 Cervicalgia 02/05/2019 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 Coagulation defect, unspecified ([facility]) 02/05/2019 Cold intolerance 11/15/2023 Deficiency of other [...] Less than 8 weeks gestation of 06/05/2019 correction (current) use of antithrombotics/antiplatelets 02/05/2019 Migraine without aura and without status migrainosus, not intractable ([facility]) 09/12/2017 Morbid obesity ([facility]) 11/15/2023 Muscle fasciculation 08/19/2021 Nasal polyps 11/15/2023 [...] 2 (SARS-CoV-2) infection 06/12/2023 SVT (supraventricular tachycardia) ([facility]) 08/26/2019 Syncope and collapse 06/03/2018 Other bacterial [...] nursing note reviewed. Exam conducted with a lens cleaner present. Vitals: Estimated body mass index is [...] of: Wilton Herrmann DO documented in this encounterCedar County Memorial [id number] NotePatient Education Emergency Medicine Bradycardia, Adult Bradycardia is a aihbml-ivqh-ypepji heartbeat. A normal resting heart rate for [...] ??? Follow a heart-healthy diet. A nutritional health coach (dietitian) can help educate you about healthy [...] liquor (44 mL). General instructions ??? Take iako-wtl-kaaaxlv and prescription medicines only as told by [...] irregular heartbeat (palpitations). ??? (more content not included)...[facility]03-03-2025 Hospital Discharge instructions Patient Education 06/30/2024 [...] Follow these instructions at home: Medicines Give bctc-pvl-hykecvi and prescription medicines only as told by [...] find more information PANDAS Network: pandasnetwork.org National [place] of Mental Health: [facility].nih.gov Contact a health care provider if: [...] the National Suicide Prevention Lifeline at or 839. This is open 24 hours a day. Text the Crisis Text Line at 116872. Summary Pediatric autoimmune neuropsychiatric disorders associated with [...] provider. Document Revised: 01/09/2022 Document Reviewed: 01/09/2022 [employer] Patient Education 2023 [employer]. 06/30/2024 09:20:50 Common Variable Immunodeficiency Common Variable [...] Follow these instructions at home: Medicines Take ybxy-lqw-lihrrgs and prescription medicines only as told by [...] disease. Where to find more information National [place] of Allergy and Infectious Disease: www.niaid.nih.gov Contact [...] risk for frequent or unusual infections. Take apxm-dxf-tymwcpe and prescription medicines only as told by [...] provider. Document Revised: 11/18/2021 Document Reviewed: 11/18/2021 [employer] Patient Education 2023 [employer]. 06/30/2024 09:18:06 DASH Eating Plan DASH Eating [...] Dairy Whole or 2% milk, cream, and yydz-fuo-ysoy. Whole or full-fat cream cheese. Whole-fat or [...] more information National Heart, Lung, and Blood [place] (NHLBI): nhlbi.nih.gov [place] Heart Association (AHA): heart.org Academy of Nutrition and Dietetics: eatright.org National Kidney Foundation (NKF): kidney.org This information is not intended to replace advice given to you by your health care provider. Make sure you discuss any questions you have with your health care provider. Document Revised: 05/03/2023 Document Reviewed: 05/03/2023 Elsevier Patient Education 2023 [employer] Follow Up Care 06/25/2024 13:53:59 With:PRAVEEN RESENDEZ FAAFP, CHRIS Perez, PED Address: [place] [address]- When:Within 2 Month(s) [facility] 03-03-2025 NotePatient Education Immunology Common [...] these instructions at home: Medicines ??? Take hzkm-kqq-zgltxnn and prescription medicines only as told by [...] Where to find more information ??? National [place] of Allergy and Infectious Disease: www.niaid.nih.gov Contact a health care provider if: ??? You have a fever. ??? You have any symptoms of infection such as chills, worsening cough, or severe earache. ??? You make high-pitched whistling sounds when you breathe, most often when you breathe out (wheeze). 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/antiplatelets 02/05/2019 Migraine without aura and without status migrainosus, not intractable ([facility]) 09/12/2017 Morbid obesity ([facility]) 11/15/2023 Muscle fasciculation 08/19/2021 Nasal polyps 11/15/2023 [...] infections 01/16/2020 Pre-diabetes 11/15/2023 Primary hypercoagulable state ([facility]) 08/01/2022 Pruritus, unspecified 01/02/2020 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[facility]) 06/12/2023 Raised antibody titer 09/25/2017 Right lower quadrant pain 11/15/2023 Right otitis externa 11/15/2023 Salivary gland swelling 11/15/2023 Single live 01/15/2020 Snoring 11/15/2023 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) 12/30/2019 Suspected severe acute respiratory syndrome coronavirus 2 (SARS-CoV-2) infection 06/12/2023 SVT (supraventricular tachycardia) ([facility]) 08/26/2019 Syncope and collapse 06/03/2018 Other bacterial infections of unspecified site 06/27/2019 Thrombocytopenia, unspecified ([facility]) 11/20/2019 Hypoglycemia 06/12/2023 Unspecified condition associated with female genital organs and menstrual cycle 05/09/2019 Unspecified ovarian cyst, right side 02/06/2019 Urinary tract infection 10/16/2019 Referred otalgia of right ear 11/19/2023 LPRD (laryngopharyngeal reflux disease) 11/19/2023 Resolved Ambulatory Problems Diagnosis Date Noted No Resolved Ambulatory Problems Past Medical History: Diagnosis Date AMA (advanced maternal age) multigravida 35+ Anemia Antiphospholipid syndrome ([facility]) Gestational diabetes Heartburn Hypothyroid ([facility]) Stroke ([facility]) HISTORY PAST MEDICAL HISTORY SOCIAL HISTORY Past Medical History: Diagnosis Date AMA (advanced maternal age) multigravida 35+ Anemia Antiphospholipid syndrome ([facility]) Gestational diabetes Heartburn Hypothyroid ([facility]) Stroke ([facility]) Social History Tobacco Use Smoking status: Never [...] nursing note reviewed. Exam conducted with a lens cleaner present. Vitals: Estimated body mass index is [...] of: Wilton Herrmann DO documented in this encounterCedar County Memorial [id number] Hospital Discharge instructions Patient Education 06/09/2024 14:23:47 [...] Do not chew gum. General instructions Take vjbn-fbs-ngglixu and prescription medicines only as told by [...] important. Where to find more information National [place] of Dental and Craniofacial Research: www.nidcr.nih.gov Contact [...] provider. Document Revised: 11/27/2021 Document Reviewed: 11/27/2021 [employer] Patient Education 2023 [employer]. Follow Up Care 06/06/2024 11:26:13 With:PRAVEEN RESENDEZ FAAFP, Penelope Tony, CHRIS, PED Address: [address], [place] [address]- When:Within 6 Month(s) [facility] 02-10-2025 NotePatient Education Orthopedics Temporomandibular [...] not chew gum. General instructions ??? Take xhri-gse-adwkvkk and prescription medicines only as told by [...] Where to find more information ??? National [place] of Dental and Craniofacial Research: www.nidcr.nih.gov Contact [...] provider. Document Revised: 11/27/2021 Document Reviewed: 11/27/2021 [employer]anto Patient Education ? 2023 [employer].[facility] 06-02-2024 History of Present illness Narrative* [...] Antiphospholipid antibody positive 09/10/2017 Antiphospholipid antibody syndrome ([facility]) 07/07/2019 Anxiety 06/12/2023 Blood pressure elevated without history of HTN 11/15/2023 BMI 37.0-37.9, adult 11/15/2023 Cerebral infarction, unspecified ([facility]) 05/16/2019 Cerebrovascular accident (CVA) due to stenosis of middle cerebral artery ([facility]) 02/22/2020 Cervicalgia 02/05/2019 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 Coagulation defect, unspecified ([facility]) 02/05/2019 Cold intolerance 11/15/2023 Deficiency of other [...] Less than 8 weeks gestation of 06/05/2019 correction (current) use of antithrombotics/antiplatelets 02/05/2019 Migraine without aura and without status migrainosus, not intractable ([facility]) 09/12/2017 Morbid obesity ([facility]) 11/15/2023 Muscle fasciculation 08/19/2021 Nasal polyps 11/15/2023 [...] infections 01/16/2020 Pre-diabetes 11/15/2023 Primary hypercoagulable state ([facility]) 08/01/2022 Pruritus, unspecified 01/02/2020 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[facility]) 06/12/2023 Raised antibody titer 09/25/2017 Right lower quadrant pain 11/15/2023 Right otitis externa 11/15/2023 Salivary gland swelling 11/15/2023 Single live 01/15/2020 Snoring 11/15/2023 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) 12/30/2019 Suspected severe acute respiratory syndrome coronavirus 2 (SARS-CoV-2) infection 06/12/2023 SVT (supraventricular tachycardia) ([facility]) 08/26/2019 Syncope and collapse 06/03/2018 Other bacterial infections of unspecified site 06/27/2019 Thrombocytopenia, unspecified ([facility]) 11/20/2019 Hypoglycemia 06/12/2023 Unspecified condition associated with [...] nursing note reviewed. Exam conducted with a lens cleaner present. Vitals: Estimated body mass index is [...] Patient had recent HCG level drawn at [facility] 05/[facility]/2024 lab value was 6. Documented by Renate Vegas LPN on behalf of: Wilton Herrmann DO documented in this encounterCedar County Memorial [id number] Telephone encounter Note* Telephone Encounter - Taylor Escudero - 05/28/2024 1:45 PM EST Triage to call with iron results [facility]01-29-2025 Miscellaneous Notes* Telephone Encounter - Taylor Escudero - 05/28/2024 1:45 PM EST Triage to call with iron results documented in this encounterKindred Hospital Dayton01-29-2025 Instructions* Patient Instructions* Nathaly Florence - 05/28/2024 1:44 PM EST Triage to call iron results Continue Lovenox - patient prefers 40 mg (rather than rec 80mg) Encouraged her to reconsider Take B12 supplement in the form of a sublingual tablet RTC in 3 months Labs same day or 2-7 days prior documented in this encounterKindred Hospital Dayton01-29-2025 History of Present illness Narrative* Kristofer Calix MD - 05/28/2024 1:00 PM EST Images from the original note were not included. NAME: Sanna Rendon CLINIC NO.: [id number] DATE OF SERVICE: May 28, 2024 (Levon) [...] later in 2018. These were found in [place], [place]. I don't have access to these [...] a target-like rash shortly before presenting to [facility] with headaches and [...] Monge soon. When she hada stroke in [place], she had symptoms up to a month before: uncontrollable headache, BP was elevated, knee stiffness, and blurry vision. Right facial drooping [facility] difficulty [facility] She [facility] to [facility]. Updated [...] and stayed on Lovenox Hgb 13.1 @ [facility] Recommended ER if persisting bleeding but she [...] and at age 69. Both lived in [place], [place] - but she was adopted. She was not able to see ID in October and will be seeing Dr. Baugh next week. Also will have her see Dr. Hamlin for her clotting disorder and make any other recommendations to optimize her treatment. Updated Visit, October 08, 2020: Telephone only Received call from pt stating she was seen in [facility] for numbness in her chest, throat, and extremities, and sob which has been worsening over the last week. We arranged a telephone visit for her toreview questions with me. Sanna Rendon is a 34 year old female seen for Hypercoagulable state and recent concerns and symptoms that required her to be seen at [facility] ER. She went to the ER with Gradual worsening of breathing after progressive tingling of fingers and legs. She currently remains very fatigued even though she is sleeping well. Now recalls that before her stroke she remembers having a bull's eye rash and was seen with severe headaches in [place], [place] - was found to have a [...] a root canal and was sent to [facility] for MRI which was negative but non-contrasted. [...] history goes back to January 2016 in [facility] where she had persisting headaches and slurred speech followed by lower extremity weakness. This took a few months to resolve and she is back to her normal state of being but some point in time during her her next she was seen by Dr. Humera Hyde in [place] as well and was found to have [...] which included preparing to see the patient, dlyp-ja-bfwi patient care, completing clinical documentation, performing a medically appropriate examination, counseling and educating the patient/family/caregiver, ordering medications, tests, or p rocedures, independently interpreting results (not separately reported), communicating results to the patient/family/caregiver, and care coordination (not separately reported). Kristofer Calix MD, CPE Hematology and Oncology Services Provided at: [place], [place] Scribe Attestation: This note was scribed [...] under my direction. CC: MD Wilton Day, [address] [place] [address] Humaira Gaviria MD [address] [place] [address] [place] [address] MD Cosmo Kingston MD Michael Blank, MD documented in this encounterKindred Hospital [facility]01-29-2025 NoteHNO ID: [id number] Author: KRISTOFER CALIX MD Service: ? Author Type: Physician Type: Progress Notes Filed: 05/29/2024 09:13 Note Text: NAME: Sanna Rendon CLINIC NO.: [id number] DATE OF SERVICE: May 28, 2024 (Levon) [...] later in 2018. These were found in [place], [place]. I don't have access to these [...] a target-like rash shortly before presenting to [facility] in [facility] with headaches [...] soon. When she had a stroke in [place], she had symptoms up to a month [...] breast feeding. Updated Visit, (more content not included)...[facility] 05-14-2024 Telephone encounter Note* Telephone Encounter - Rachael Johnson RN - 05/14/2024 10:15 AM EST Pt called to inform she had a miscarriage, Sunday (05/10/24) Asking if any additional blood work was needed from out standpoint. Pt aware we will be checking her CBC for any signs of anemia and her iron studies for deficiency. 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 She denies any further questions needs or concerns at this time. MARSHA Rushk: YANET [facility]01-15-2025 Miscellaneous Notes* Telephone Encounter - Rachael Johnson RN - 05/14/2024 10:15 AM EST Pt called to inform she had a miscarriage, Sunday (05/10/24) Asking if any additional blood work was needed from out standpoint. Pt aware we will be checking her CBC for any signs of anemia and her iron studies for deficiency. 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 She denies any further questions needs or concerns at this time. MARSHA Rushk: YANET documented in this encounterKindred Hospital [facility]01-15-2025 Telephone encounter Note * Telephone Encounter [...] thinnersat follow up appointment. PVU--Rosi Presley LPN [facility] [id number] Miscellaneous Notes* Telephone Encounter - Rosi Murray [...] to blood thinnersat follow up appointment. PVU--Rosi Prseley LPN documented in this encounterCedar County Memorial [id number] History of Present illness Narrative* Pamela Walter [...] Less than 8 weeks gestation of 06/05/2019 correction (current) use of antithrombotics/antiplatelets 02/05/2019 Migraine without aura and without status migrainosus, not intractable ([facility]) 09/12/2017 Morbid obesity ([facility]) 11/15/2023 Muscle fasciculation 08/19/2021 Nasal polyps 11/15/2023 [...] 01/16/2020 Pre-diabetes 11/15/2023 Primary hypercoagulable state ([facility]) 08/01/2022 Pruritus, unspecified 01/02/2020 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[facility]) 06/12/2023 Raised antibody titer 09/25/2017 Right lower quadrant pain 11/15/2023 Right otitis externa 11/15/2023 Salivary gland swelling 11/15/2023 Single live 01/15/2020 Snoring 11/15/2023 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) 12/30/2019 Suspected severe acute respiratory syndrome coronavirus 2 (SARS-CoV-2) infection 06/12/2023 SVT (supraventricular tachycardia) ([facility]) 08/26/2019 Syncope and collapse 06/03/2018 Other bacterial infections of unspecified site 06/27/2019 Thrombocytopenia, unspecified ([facility]) 11/20/2019 Hypoglycemia 06/12/2023 Unspecified condition associated with female genital organs and menstrual cycle 05/09/2019 Unspecified ovarian cyst, right side 02/06/2019 Urinary tract infection 10/16/2019 Referred otalgia of right ear 11/19/2023 LPRD (laryngopharyngeal reflux disease) 11/19/2023 Resolved Ambulatory Problems Diagnosis Date Noted No Resolved Ambulatory Problems Past Medical History: Diagnosis Date AMA (advanced maternal age) multigravida 35+ Anemia Antiphospholipid syndrome ([facility]) Gestational diabetes Heartburn Hypothyroid ([facility]) Stroke ([facility]) HISTORY PAST MEDICAL HISTORY SOCIAL HISTORY Past Medical History: Diagnosis Date AMA (advanced maternal age) multigravida 35+ Anemia Antiphospholipid syndrome ([facility]) Gestational diabetes Heartburn Hypothyroid ([facility]) Stroke ([facility]) Social History Tobacco Use Smoking status: Never [...] nursing note reviewed. Exam conducted with a lens cleaner present. Vitals: Estimated body mass index is [...] urinalysis dipstick manually resulted documented in this encounterCedar County Memorial [id number] History of Present illness Narrative* Ariane Joseph [...] Antiphospholipid antibody positive 09/10/2017 Antiphospholipid antibody syndrome ([facility]) 07/07/2019 Anxiety 06/12/2023 Blood pressure elevated without history of HTN 11/15/2023 BMI 37.0-37.9, adult 11/15/2023 Cerebral infarction, unspecified ([facility]) 05/16/2019 Cerebrovascular accident (CVA) due to stenosis of middle cerebral artery ([facility]) 02/22/2020 Cervicalgia 02/05/2019 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 Coagulation defect, unspecified ([facility]) 02/05/2019 Cold intolerance 11/15/2023 Deficiency of other [...] Less than 8 weeks gestation of 06/05/2019 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) use of antithrombotics/antiplatelets 02/05/2019 Migraine without aura and without status migrainosus, not intractable ([facility]) 09/12/2017 Morbid obesity ([facility]) 11/15/2023 Muscle fasciculation 08/19/2021 Nasal polyps 11/15/2023 [...] infections 01/16/2020 Pre-diabetes 11/15/2023 Primary hypercoagulable state ([facility]) 08/01/2022 Pruritus, unspecified 01/02/2020 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[facility]) 06/12/2023 Raised antibody titer 09/25/2017 Right lower quadrant pain 11/15/2023 Right otitis externa 11/15/2023 Salivary gland swelling 11/15/2023 Single live 01/15/2020 Snoring 11/15/2023 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) 12/30/2019 Suspected severe acute respiratory syndrome coronavirus 2 (SARS-CoV-2) infection 06/12/2023 SVT (supraventricular tachycardia) ([facility]) 08/26/2019 Syncope and collapse 06/03/2018 Other bacterial infections of unspecified site 06/27/2019 Thrombocytopenia, unspecified ([facility]) 11/20/2019 Hypoglycemia 06/12/2023 Unspecified condition associated with female genital organs and menstrual cycle 05/09/2019 Unspecified ovarian cyst, right side 02/06/2019 Urinary tract infection 10/16/2019 Referred otalgia of right ear 11/19/2023 LPRD (laryngopharyngeal reflux disease) 11/19/2023 Resolved Ambulatory Problems Diagnosis Date Noted No Resolved Ambulatory Problems Past Medical History: Diagnosis Date AMA (advanced maternal age) multigravida 35+ Anemia Antiphospholipid syndrome ([facility]) Gestational diabetes Heartburn Hypothyroid ([facility]) Stroke ([facility]) Family History Problem Relation Name Age of [...] undercooked meat, and stay away from [facility]. Patient has also been advised to [...] by: Ariane Joseph LPN documented in this encounterCedar County Memorial [id number] Telephone encounter Note* Telephone Encounter - Rachael Johnson RN - 02/28/2024 8:21 AM EDT Pt aware and agreeable to plan of care. Pt denies any further questions, needs or concerns at this time. Appt verified for lab/follow up Rachael Johnson RN [facility]10-31-2024 Miscellaneous Notes* Telephone Encounter - Rachael [...] advise Rachael Johnson RN documented in this encounterKindred Hospital [facility]10-30-2024 Telephone encounter Note * Telephone Encounter - Kristofer Calix MD - 02/27/2024 4:36 PM EDT She can take the iron with prenatals. We should March labs as scheduled. [facility]10-30-2024 Telephone encounter Note* Telephone Encounter - Rachael Johnson RN - 02/27/2024 9:41 AM EDT Pt 4 weeks and inquiring if she should have March's lab work completed now or wait until scheduled appt. Pt last labs completed 01/02/24. Pt also would like to know if it is okay to take with iron? Fely: Please advise Rachael Johnson RN [facility]10-08-2024 Hospital Discharge instructions Patient Education 02/05/2024 [...] condition. Follow these instructions at home: Take jgsd-tbg-yuqasfl and prescription medicines only as told by [...] and water are not available, use hand [employer] rep. Avoid contact with people who have cold [...] it is easier to cough up. Take nles-zal-fbwjpbn and prescription medicines only as told by [...] provider. Document Revised: 07/27/2022 Document Reviewed: 08/17/2021 [employer] Patient Education 2023 [employer]. Follow Up Care 02/04/2024 08:47:42 With:PRAVEEN RESENDEZ FAAFP, CHRIS Perez, PED Address: [address] [place] [address], [facility] [place] [phone]- When:Within 3 Month(s) [facility] 10-08-2024 NotePatient Education Pulmonary Medicine [...] Follow these instructions at home: ? Take qgtp-nor-jefxdwn and prescription medicines only as told by [...] and water are not available, use hand [employer] rep. ? Avoid contact with people who have [...] is easier to cough up. ? Take gqeb-jly-scnsbps and (more content not included)...[facility]10-05-2024 Hospital Discharge instructions Follow Up Care 02/02/2024 11:19:56 With:Anni Bernstein MD, [facility], [facility] Address: [address] [place] [phone] When: only if needed [facility] 09-09-2024 Miscellaneous Notes* Telephone Encounter [...] FE results. Thank you documented in this encounterKindred Hospital [facility]09-09-2024 Telephone encounter Note * Telephone Encounter - Valeri Yeung RN - 01/07/2024 8:29 AM EDT No need for IV iron per CC'd chart from Dr. Calix. Attempt to call pt to notify. Left detailed message on, along with call back number on voicemail. Valeri Yeung RN [facility]09-04-2024 Telephone encounter Note* Telephone Encounter - Marleen Mcdonald - 01/02/2024 2:[address] Luna is requesting Triage to call Sanna with her FE results. Thank you [facility]09-04-2024 Instructions* Patient Instructions* Nathaly Florence - 01/02/2024 2:08 PM EDT Triage to call iron results Continue Lovenox - patient prefers 40 mg (rather than rec 80mg) Encouraged her to reconsider Take B12 supplement in the form of a sublingual tablet RTC in 3 months Labs same day Vitamin D, TSH, Calcium with CMP documented in this encounterKindred Hospital Dayton09-04-2024 Nurse Note* Serina Horton MA - [...] MRI but was negative. Serina Dawson MA [facility]09-04-2024 Nurse Note* Serina Dawson MA - [...] negative. Serina Dawson MA documented in this encounterKindred Hospital Dayton09-04-2024 History of Present illness Narrative* Kristofer Calix MD - 01/02/2024 1:45 PM EDT Images from the original note were not included. NAME: Sanna Rendon CLINIC NO.: [id number] DATE OF SERVICE: January 02, 2024 ([place]) [...] later in 2018. These were found in [place], [place]. I don't have access to these [...] a target-like rash shortly before presenting to [facility] with headaches [...] Monge soon. When she hada stroke in [place], she had symptoms up to a month before: uncontrollable headache, BP was elevated, knee stiffness, and blurry vision. Right facial drooping [facility] difficulty [facility] She [facility] to [facility]. Updated [...] and stayed on Lovenox Hgb 13.1 @ [facility] Recommended ER if persisting bleeding but she [...] age 69. Both lived in [facility] but she was adopted. She was not able to see ID in October and will be seeing Dr. Baugh next week. Also will have her see Dr. Hamlin for her clotting disorder and make any other recommendations to optimize her treatment. Updated Visit, October 08, 2020: Telephone only Received call from pt stating she was seen in [facility] ER for numbness in her chest, throat, and extremities, and sob which has been worsening over the last week. We arranged a telephone visit for her toreview questions with me. Sanna Rendon is a 34 year old female seen for Hypercoagulable state and recent concerns and symptoms that required her to be seen at [facility] ER. She went to the ER with Gradual worsening of breathing after progressive tingling of fingers and legs. She currently remains very fatigued even though she is sleeping well. Now recalls that before her stroke she remembers having a bull's eye rash and was seen with severe headaches in [facility] was found to have a stroke [...] a root canal and was sent to [facility] for MRI which was negative but non-contrasted. [...] history goes back to January 2016 in [facility] where she had persisting headaches and slurred speech followed by lower extremity weakness. This took a few months to resolve and she is back to her normal state of being but some point in time during her her next she was seen by Dr. Humera Hyde in [place] as well and was found to have [...] which included preparing to see the patient, vsgu-st-genl patient care, completing clinical documentation, performing a medically appropriate examination, counseling and educating the patient/family/caregiver, ordering medications, tests, or p rocedures, independently interpreting results (not separately reported), communicating results to the patient/family/caregiver, and care coordination (not separately reported). Kristofer Calix MD, CPE Hematology [facility] Oncology Services Provided at: [place], [place] Scribe Attestation: This note was scribed [...] under my direction. CC: MD Wilton Day, [address] [place] [address] Humaira Gaviria MD [address] [place] [id number] MD Cosmo Kingston MD Michael Blank, MD documented in this encounterKindred Hospital [facility]08-19-2024 Telephone encounter Note * Telephone Encounter - Rachael Johnson RN - 12/17/2023 12:57 PM EDT Pt updated and will follow up with PCP. Denies further questions, needs or concerns at this time for our provider. Rachael Johnson RN [facility]08-19-2024 Miscellaneous Notes* Telephone Encounter - Rachael [...] to IV Iron 11/29/23? documented in this encounterKindred Hospital Dayton08-19-2024 Telephone encounter Note * Telephone Encounter - Kristofer Calix MD - 12/17/2023 12:52 PM EDT No - sounds like she has some infectious process going on - would rec PCP. [facility]08-19-2024 Telephone encounter Note* Telephone Encounter - [...] possible delayed reaction to IV Iron 11/29/23? [facility]08-01-2024 History of Present illness Narrative* Becki Gutierrez RN - 11/29/2023 2:01 PM EDT Y Y documented in this encounterKindred Hospital Dayton08-01-2024 Telephone encounter Note * Telephone Encounter - Rachael Johnson RN - 11/29/2023 12:45 PM EDT MARSHA Connell, treatment aware of changes. [facility]08-01-2024 Miscellaneous Notes* Telephone Encounter - Rachael [...] a different iron formulation. documented in this encounterKindred Hospital Dayton08-01-2024 Telephone encounter Note * Telephone Encounter - Rachael Johnson RN - 11/29/2023 12:41 PM EDT Spoke with pt. She will obtain Pepcid OTC from our retail pharmacy on arrival to take (1) 20 mg tablet. She is aware and agreeable to IV steroid for infusion as well. Rachael Johnson RN [facility]08-01-2024 Telephone encounter Note* Telephone Encounter - Raissa Aly RPh - 11/29/2023 12:40 PM EDT A one time dose of dexamethasone is safe when . I added 8mg to the plan for your review. Please adjust dose if necessary. Thanks, Raissa Aly RPh [facility] Work Phone: [phone] Telephone encounter Note* Telephone Encounter - Raissa Aly RPh - 11/29/2023 12:34 PM EDT Famotidine is safe when . Do we want to administer the venofer slower? What rate? Thanks, Raissa Aly [facility]08-01-2024 Telephone encounter Note* Telephone Encounter - Rachael Johnson RN - 11/29/2023 11:56 AM EDT Called and discussed with pt. She is and cannot take Benadryl. She is reluctant to take Pepcid. Attempted to call retail, infusion pharmacy and [facility], no answer, to ask safety of pepcid in . Pharm/Fely: please advise Rachael Johnson RN [facility]08-01-2024 Telephone encounter Note* Telephone Encounter - [...] have to choose a different iron formulation. [facility]07-18-2024 History of Present illness Narrative* Alison Linares RN - 11/15/2023 1:42 PM EDT Pt reports having nausea and lightheadedness this morning. She has seen her pcp regarding these symptoms and is being worked up to figure out the cause. documented in this encounterKindred Hospital [facility]07-18-2024 Telephone encounter Note * Telephone Encounter - Evelyn Sanabria - 11/15/2023 9:19 AM EDT 1st report of treatment-Non oncology regimen (Venofer) Patient holds Medicaid coverage and there isno available FA at this time. [facility]07-18-2024 Miscellaneous Notes* Telephone Encounter - Domo Cat Evelyn Radha - 11/15/2023 9:19 AM EDT 1st report of treatment-Non oncology regimen (Venofer) Patient holds Medicaid coverage and there isno available FA at this time. documented in this encounterKindred Hospital Dayton07-12-2024 Hospital Discharge instructions Patient Education 11/09/2023 [...] your hypoglycemia. Where to find more information [place] [employer] Association: www.diabetes.org National [place] of Diabetes and Digestive and Kidney Diseases: [...] provider. Document Revised: 03/17/2021 Document Reviewed: 03/17/2021 [employer] Patient Education 2022 [employer]. 11/09/2023 15:56:06 Prediabetes Prediabetes Prediabetes is when [...] hard liquor (44 mL). General instructions Take tohu-zay-corlqbj and prescription medicines only as told by [...] is important. Where to find more information [place] Diabetes Association: www.diabetes.org Academy of Nutrition and Dietetics: www.eatright.org [place] Heart Association: www.heart.org Contact a health care [...] provider. Document Revised: 07/15/2020 Document Reviewed: 07/15/2020 [employer] Patient Education 2022 [employer]. 11/09/2023 15:56:02 Palpitations Palpitations Palpitations are feelings [...] ask your health careprovider. General instructions Take szqa-mnr-nijktcy and prescription medicines only as told by [...] provider. Document Revised: 09/07/2021 Document Reviewed: 09/07/2021 [employer] Patient Education 2022 [employer]. 11/09/2023 15:55:58 Fatigue Fatigue If you have [...] Follow these instructions at home: Medicines Take zrvj-nqv-cunajcd and prescription medicines only as told by [...] the National Suicide Prevention Lifeline at or 654. This is open 24 hours a day. Text the Crisis Text Line at 785473. Summary If you have fatigue, you feel [...] Document Reviewed: 02/06/2022 Elsevier Patient Education 2022 [employer] Follow Up Care 11/08/2023 11:31:43 With:PRAVEEN RESENDEZ FAAFP, Penelope Tony, CHRIS, PED Address: [address], [facility] [address]- When: Unknown [facility] 07-12-2024 NotePatient Education Emergency Medicine [...] health care provider. General instructions ? Take kdqk-axw-dumcdna and prescription medicines only as told by [...] provider. Document Revised: 09/07/2021 Document Reviewed: 09/07/2021 [employer] Patient Education ? 2022 [employer]. Endocrinology Preventing Hypoglycemia Hypoglycemia occurs when the [...] Mild hypoglycemia may not (more content not included)...[facility]07-12-2024 History of Present illness Narrative* Tamiko Krueger LSW - 11/09/2023 9:27 AM EDT Patient appears on the [facility] List for a non-oncology treatment. No psychosocial assessment is indicated. TIM Huerta-Jaylan documented in this encounterKindred Hospital Dayton07-09-2024 Telephone encounter Note * Telephone Encounter [...] dizziness, etc. Appointments verified. Rachael Johnson RN [facility]07-09-2024 Miscellaneous Notes* Telephone Encounter - Rachael [...] labs same day. Thanks! documented in this encounterKindred Hospital Dayton07-08-2024 Telephone encounter Note * Telephone Encounter [...] get you feeling better. Best, Dr. Middleton [facility]07-08-2024 Telephone encounter Note* Telephone Encounter - [...] is on a blood thinner. Roberta Haskins [facility]07-08-2024 Telephone encounter Note* Telephone Encounter - Roberta Haskins - 11/05/2023 12:47 PM EDT Appointment tomorrow cancelled. Andres tried calling her this morning and was unable to get a hold ofher. Will keep trying patient to schedule for Iron. Roberta Haskins [facility]07-08-2024 Telephone encounter Note* Telephone Encounter - [...] weeks inperson - labs same day. Thanks! [facility]06-25-2024 Hospital Discharge instructions Patient Education 10/23/2023 [...] specializes in ear, nose, and throat disorders (recovery room rn, or ENT) for more tests and treatment. [...] (rhinoplasty). Follow these instructions at home: Take nlam-zin-xwetixt and prescription medicines only as told by [...] specializes in ear, nose, and throat disorders (recovery room rn, or ENT) for more tests and treatment. This information is not intended to replace advice given to you by your health care provider. Make sure you discuss any questions you have with your health care provider. Document Revised: 12/12/2021 Document Reviewed: 12/12/2021 [employer] Patient Education 2022 [employer]. 10/23/2023 17:12:52 Nasal Polyps Nasal Polyps Nasal [...] instructions at home: Medicines Take or use lsok-gnx-qnyhitt and prescription medicines only as told by [...] provider. Document Revised: 04/05/2022 Document Reviewed: 04/05/2022 [employer] Patient Education 2022 [employer]. 10/23/2023 17:12:52 Nasal Polypectomy Nasal Polypectomy Nasal [...] including vitamins, herbs, eye drops, creams, and mhvr-wxl-aafhipb medicines. Any problems you or family members [...] provider tells you to take them. Taking zgtk-eho-rqzydwu medicines, vitamins, herbs, and supplements. General instructions [...] provider. Document Revised: 04/05/2022 Document Reviewed: 04/05/2022 [employer] Patient Education 2022 [employer]. 10/23/2023 17:12:46 BMI for Adults BMI for [...] numbers. This can be done either in Portuguese (U.S.) or metric measurements. Note that charts and online BMI calculators are available to help you find your BMI quickly and easily without having to do these calculations yourself. To calculate your BMI in Portuguese (U.S.) measurements: 1.Measure your weight in pounds [...] Centers for Disease Control and Prevention: www.cdc.gov [place] Heart Association: www.heart.org National Heart, Lung, and Blood [place]: www.nhlbi.nih.gov Summary Body mass index (BMI) is a number that is calculated from a person's weight and height. BMI may help estimate how much of a person's weight is composed of fat. BMI can help identify thosewho may be at higher risk for certain medical problems. BMI can be measured using Portuguese measurements or metric measurements. BMI charts are used to identify whether you are underweight, normal weight, overweight, or obese. This information is not intended to replace advice given to you by your health care provider. Make sure you discuss any questions you have with your health care provider. Document Revised: 01/07/2020 Document Reviewed: 11/14/2019 [employer] Patient Education 2022 [employer]. Follow Up Care 10/23/2023 08:49:41 With:Lourdes Urrutia Address: [address] [place] [address], [facility] [place] [address]- When: only if needed [facility] 05-31-2024 Hospital Discharge instructions Patient [...] Follow these instructions at home: Medicines Take kajg-cna-fuxvpqk and prescription medicines only as told by [...] Watch your condition for any changes. Take uaxh-cnb-cyrouln and prescription medicines only as told by [...] provider. Document Revised: 06/04/2020 Document Reviewed: 08/25/2019 [employer] Patient Education 2022 [employer]. Follow Up Care 09/28/2023 18:22:59 With:Penelope CASAS Address: [address], [place] [address]- Business (1) When:Within 3 Day(s) [facility]05-31-2024 Hospital Discharge instructions Patient Education 09/28/2023 [...] numbers. This can be done either in Portuguese (U.S.) or metric measurements. Note that charts and online BMI calculators are available to help you find your BMI quickly and easily without having to do these calculations yourself. To calculate your BMI in Portuguese (U.S.) measurements: 1.Measure your weight in pounds [...] Centers for Disease Control and Prevention: www.cdc.gov [place] Heart Association: www.heart.org National Heart, Lung, and Blood [place]: www.nhlbi.nih.gov Summary Body mass index (BMI) is a number that is calculated from a person's weight and height. BMI may help estimate how much of a person's weight is composed of fat. BMI can help identify thosewho may be at higher risk for certain medical problems. BMI can be measured using Portuguese measurements or metric measurements. BMI charts are used to identify whether you are underweight, normal weight, overweight, or obese. This information is not intended to replace advice given to you by your health care provider. Make sure you discuss any questions you have with your health care provider. Document Revised: 01/07/2020 Document Reviewed: 11/14/2019 [employer] Patient Education 2022 [employer]. 09/28/2023 18:24:42 Hypertension, Adult, Uqps-uu-Buqd Hypertension, Adult Hypertension is another name for [...] doctor. Keep all follow-up visits. Medicines Take tbpr-uej-vcjfejq and prescription medicines only as told by [...] provider. Document Revised: 02/02/2022 Document Reviewed: 02/02/2022 [employer] Patient Education 2022 [employer]. 09/28/2023 18:24:32 Abdominal Pain, Adult, Fclr-jc-Vfhx Abdominal Pain, Adult Many things can cause belly (abdominal) pain. Most times, belly pain is not dangerous. Many cases of belly pain can be watched and treated at home. Sometimes, though, belly pain is serious. Your doctor will try to find the cause of your belly pain. Follow these instructions at home: Medicines Take adgi-jet-yrmhozg and prescription medicines only as told by [...] your belly pain for any changes. Take wqxj-kqe-hfteekf and prescription medicines only as told by [...] provider. Document Revised: 08/25/2019 Document Reviewed: 08/25/2019 [employer] Patient Education 2022 [employer]. Follow Up Care 09/28/2023 16:11:11 With:Emergency room Address: When: only if needed Comments:Patient was instructed to contact emergency room for any worsening abdominal pain, concerns, or complications. [facility] 05-31-2024 Evaluation + Plan noteExtracted [...] Open Future Scheduled Tests Laboratory* HgbA1c 08/03/23 [facility]05-30-2024 Telephone encounter Note* Telephone Encounter - Divine Roberta - 09/27/2023 4:38 PM EDT Attempt has been made x2 to reschedule patient. She did not have labs drawn. Roberta Haskins [facility]05-30-2024 Miscellaneous Notes* Telephone Encounter - JocelynelesterRoberta - 09/27/2023 4:38 PM EDT Attempt has been made x2 to reschedule patient. She did not have labs drawn. Roberta Haskins documented in this encounterKind[facility]05[facility] History of Present illness Narrative* Kristofer Calix MD - 09/26/2023 9:11 AM EDT Did not have labs done to prep for this visit - reschedule. Kristofer Calix MD documented in this [facility]Kind[facility]04[facility]24 Hospital Discharge instructions Patient Education 08/03/2023 [...] health care provider or diet and nutritional health coach (dietitian). This may include: ?Eating fewer calories. [...] provider. Document Revised: 06/12/2021 Document Reviewed: 06/12/2021 [employer] Patient Education 2022 [employer]. Follow Up Care 02/15/2023 10:07:52 With:PRAVEEN RESENDEZ FAAFP, Penelope Tony, CHRIS, PED Address: [address], [place] [address]- When:Within 4 Month(s) [facility] 04-05-2024 Evaluation + Plan note Future Scheduled Tests Laboratory* HgbA1c 08/03/23 Radiology* CT Soft Tissue Neck w/ Contrast 11/12/23 [facility] 02-22-2024 Hospital Discharge instructions Patient [...] or if there is an kennedy for [employer]. Most glucose meters store a record of [...] mayhave. Where to find more information The [place] Diabetes Association: www.diabetes.org The Association of Diabetes [...] provider. Document Revised: 01/12/2021 Document Reviewed: 01/12/2021 [employer] Patient Education 2022 [employer]. 06/21/2023 06:07:34 Preventing Iron Deficiency Anemia, Adult [...] iron. Foods high in vitamin C include: ?[place] fruits, such as tai, oranges, and grapefruits. [...] iron supplement is right for you. Take jycz-okq-gqchybk and prescription medicines only as told by your health care provider. Keep all follow-up visits. Where to find more information Learn more about preventing iron deficiency from: National Heart, Lung, and Blood [place]: www.nhlbi.nih.gov [place] Society of Hematology: www.hematology.org Contact a health [...] provider. Document Revised: 05/24/2022 Document Reviewed: 05/24/2022 [employer] Patient Education 2022 [employer]. 06/21/2023 06:07:28 BMI for Adults BMI for [...] numbers. This can be done either in Portuguese (U.S.) or metric measurements. Note that charts and online BMI calculators are available to help you find your BMI quickly and easily without having to do these calculations yourself. To calculate your BMI in Portuguese (U.S.) measurements: 1.Measure your weight in pounds [...] Centers for Disease Control and Prevention: www.cdc.gov [place] Heart Association: www.heart.org National Heart, Lung, and Blood [place]: www.nhlbi.nih.gov Summary Body mass index (BMI) is a number that is calculated from a person's weight and height. BMI may help estimate how much of a person's weight is composed of fat. BMI can help identify thosewho may be at higher risk for certain medical problems. BMI can be measured using Portuguese measurements or metric measurements. BMI charts are used to identify whether you are underweight, normal weight, overweight, or obese. This information is not intended to replace advice given to you by your health care provider. Make sure you discuss any questions you have with your health care provider. Document Revised: 01/07/2020 Document Reviewed: 11/14/2019 [employer] Patient Education 2022 [employer]. Follow Up Care 06/19/2023 13:39:56 With:PRAVEEN RESENDEZ FAAFP, Penelope Tony, CHRIS, PED Address: [address] [place] [id number]- When: Unknown [facility] 02-20-2024 Miscellaneous Notes* Telephone Encounter - Rachael Johnson RN - 06/19/2023 1:05 PM EST Pt called back and aware of Fely's message. She is agreeable to POC and denies further needs at thistime. She will call PCP to follow up on TSH Rachael Johnson RN * Telephone Encounter - Rachael Johnson RN - 06/19/2023 12:26 PM EST Setera Communicationst message sent Rachael Johnson RN * Telephone [...] lab results Roberta Haskins documented in this encounterKind[facility]24 Instructions* Patient Instructions* Nathaly Carney - [...] TSH, Calcium with CMP documented in this encounterKindred [facility]02-[facility]-2024 Nurse Note* Serina Horton MA - [...] exercise. Serina Dawson MA documented in this encounterKind[facility]02-16-2024 History of Present illness Narrative* Kristofer Calix MD - 06/15/2023 2:00 PM EST Images from the original note were not included. NAME: Sanna Rendon CLINIC NO.: [id number] DATE OF SERVICE: June 15, 2023 (Levon) [...] later in 2018. These were found in [place], [place]. I don't have access to these [...] a target-like rash shortly before presenting to [facility] in 2016 with headaches [...] Monge soon. When she hada stoke in [place], she had symptoms up to a month [...] and stayed on Lovenox Hgb 13.1 @ [facility] Recommended ER if persisting bleeding but she [...] age 69. Both lived in [facility] but she was adopted. She was not able to see ID in October and will be seeing Dr. Baugh next week. Also will have her see Dr. Hamlin for her clotting disorder and make any other recommendations to optimize her treatment. Updated Visit, October 08, 2020: Telephone only Received call from pt stating she was seen in [facility] ER for numbness in her chest, throat, and extremities, and sob which has been worsening over the last week. We arranged a telephone visit for her franci questions with me. Sanna Rendon is a 34 year old female seen for Hypercoagulable state and recent concerns and symptoms that required her to be seen at [facility] ER. She went to the ER with Gradual worsening of breathing after progressive tingling of fingers and legs. She currently remains very fatigued even though she is sleeping well. Now recalls that before her stroke she remembers having a bull's eye rash and was seen with severe headaches in [facility] was found to have a stroke [...] a root canal and was sent to [facility] for MRI which was negative but non-contrasted. [...] history goes back to January 2016 in [facility] where she had persisting headaches and slurred speech followed by lower extremity weakness. This took a few months to resolve and she is back to her normal state of being but some point in time during her her next she was seen by Dr. Humera Hyde in [place] as well and was found to have [...] which included preparing to see the patient, oock-jb-mvkl patient care, completing clinical documentation, performing a medically appropriate examination, counseling and educating the patient/family/caregiver, ordering medications, tests, or p rocedures, independently interpreting results (not separately reported), communicating results to the patient/family/caregiver, and care coordination (not separately reported). Kristofer Calix MD, CPE Hematology and Oncology Services Provided at: [place], [place] Scribe Attestation: This note was scribed [...] under my direction. CC: MD Wilton Day, [address] [place] [address] Humaira Gaviria MD [address] [place] [id number] MD Cosmo Kingston MD Michael Blank, MD documented in this encounterKind[facility]02-[facility]-2024 Miscellaneous Notes* Telephone Encounter - Ebony Redding Ma - 06/11/2023 10:43 AM EST Labs for appointment on 06/15. Ebony Redding Ma documented in this encounterKind[facility]02-12-2024 Miscellaneous Notes* Telephone Encounter - Nicol [...] Nicol Salgado * [facility]/06/2023 8:37 AM EST Records faxed. Electronically signed by [facility] at 06/06/2023 8:37 AM EST * Telephone Encounter - Nicol Avila - [...] was last seen by him. [facility] [address] [facility], [place], Please fax records Andres, Please follow up on this appt. Thank you documented in this encounterKindred [facility]02-01-2024 History of Present illness Narrative* Kristofer Calix MD - 05/31/2023 4:30 PM EST Images from the original note were not included. NAME: Sanna Rendon CLINIC NO.: [id number] DATE OF SERVICE: May 31, 2023 (Levon) Some elements in this clinic note that are critical to medical decision making have been carefully reviewed and included from a prior clinic note dated: March 19, 2023 (Levon) Additional Clinicians involved in Sanna Rendon's care: Drs. Herrmann, Jorge Monge, Humaira Gaviria, VIRTUAL VISIT PROGRESS NOTE This is a virtual visit using Setera Communicationst Zoom Video Visit. It required patient- provider interaction for the medical decision making as documented below. I have communicated my name and active licensure. The patient's identity and physical location wereverified at the time of this visit. Either the patient or their legal media sales representative has been informed of the risks and benefits of -- and alternatives to -- treatment through a remote evaluation andconsents to proceed with the evaluation remotely. CC: hypercoag state. ASSESSMENT: 37 year old woman 25 weeks presents with a prior history of CVA in 2016 and anantiphospholipid antibody that was identified much later in 2018. These were found in [place], [place]. I don't have access to these [...] a target-like rash shortly before presenting to [facility] in 2016 with headaches [...] and stayed on Lovenox Hgb 13.1 @ [facility] Recommended ER if persisting bleeding but she [...] age 69. Both lived in [facility] but she was adopted. She was not able to see ID in October and will be seeing Dr. Baugh next week. Also will have her see Dr. Hamlin for her clotting disorder and make any other recommendations to optimize her treatment. Updated Visit, October 08, 2020: Telephone only Received call from pt stating she was seen in [facility] ER for numbness in her chest, throat, and extremities, and sob which has been worsening over the last week. We arranged a telephone visit for her franci questions with me. Sanna Rendon is a 34 year old female seen for Hypercoagulable state and recent concerns and symptoms that required her to be seen at [facility] ER. She went to the ER with Gradual worsening of breathing after progressive tingling of fingers and legs. She currently remains very fatigued even though she is sleeping well. Now recalls that before her stroke she remembers having a bull's eye rash and was seen with severe headaches in [facility] was found to have a stroke [...] a root canal and was sent to [facility] for MRI which was negative but non-contrasted. [...] history goes back to January 2016 in [facility] where she had persisting headaches and slurred speech followed by lower extremity weakness. This took a few months to resolve and she is back to her normal state of being but some point in time during her her next she was seen by Dr. Humera Hyde in [place] as well and was found to have [...] CPE Hematology and Oncology Services Provided at: [place], [place] CC: MD Wilton Day, [address] [place] [address] Hmuaira Gaviria MD [address] [place] [id number] MD Cosmo Kingston MD Michael Blank, MD documented in this encounterKind[facility]02-[facility]-2024 Instructions* Patient Instructions* Kristofer Calix MD [...] TSH, Calcium with CMP documented in this encounterKind[facility]01-[facility]24 Hospital Discharge instructions Patient Education 05/25/2023 [...] your ears completely after. General instructions Take lotk-hyq-uqznqlz and prescription medicines only as told by [...] provider. Document Revised: 06/27/2021 Document Reviewed: 06/27/2021 [employer] Patient Education 2022 [employer]. 05/25/2023 12:02:06 Dyshidrotic Eczema Dyshidrotic Eczema Dyshidrotic [...] care provider who specializes in skin conditions (infection control coordinator) tohelp diagnose and treat this condition. [...] locks in moisture. Medicines Take and apply dwff-qgv-inmxxdq and prescription medicines only as told by [...] provider. Document Revised: 01/24/2021 Document Reviewed: 01/24/2021 [employer] Patient Education 2022 [employer]. 05/25/2023 12:02:02 Allergies, Adult, Nylm-nd-Oikx Allergies, Adult An allergy means that your [...] instructions at home: Medicines Take or apply wmeg-occ-zprtbhg and prescription medicines only as told by [...] to the hospital. Summary Take or apply wsdv-itz-emivsgv and prescription medicines only as told by [...] provider. Document Revised: 02/25/2020 Document Reviewed: 02/25/2020 [employer] Patient Education 2022 [employer]. Follow Up Care 05/21/2023 12:21:27 With:PRAVEEN RESENDEZ FAAFP, Penelope Tony, CHRIS, PED Address: [facility] [address], [place] [address]- When:Within 2 Month(s) [facility] 11-20-2023 History of Present illness Narrative* Kristofer Calix MD - 03/19/2023 4:45 PM EST Images from the original note were not included. NAME: Sanna Rendon CLINIC NO.: [id number] DATE OF SERVICE: March 19, 2023 (Levon) [...] visit. Either the patient or their legal media sales representative has been informed of the risks and benefits of -- and alternatives to -- treatment through a remote evaluation andconsents to proceed with the evaluation remotely. CC: hypercoag state. ASSESSMENT: 37 year old woman 25 weeks presents with a prior history of CVA in 2016 and anantiphospholipid antibody that was identified much later in 2018. These were found in [place], [place]. I don't have access to these [...] a target-like rash shortly before presenting to [facility] in 2016 with headaches [...] and stayed on Lovenox Hgb 13.1 @ [facility] Recommended ER if persisting bleeding but she [...] age 69. Both lived in [facility] but she was adopted. She was not able to see ID in October and will be seeing Dr. Baugh next week. Also will have her see Dr. Hamlin for her clotting disorder and make any other recommendations to optimize her treatment. Updated Visit, October 08, 2020: Telephone only Received call from pt stating she was seen in [facility] for numbness in her chest, throat, and extremities, and sob which has been worsening over the last week. We arranged a telephone visit for her chanw questions with me. Sanna Rendon is a 34 year old female seen for Hypercoagulable state and recent concerns and symptoms that required her to be seen at [facility]. She went to the ER with Gradual worsening of breathing after progressive tingling of fingers and legs. She currently remains very fatigued even though she is sleeping well. Now recalls that before her stroke she remembers having a bull's eye rash and was seen with severe headaches in [facility] was found to have a stroke [...] a root canal and was sent to [facility] for MRI which was negative but non-contrasted. [...] history goes back to January 2016 in [facility] where she had persisting headaches and slurred speech followed by lower extremity weakness. This took a few months to resolve and she is back to her normal state of being but some point in time during her her next she was seen by Dr. Humera Hyde in [place] as well and was found to have [...] CPE Hematology and Oncology Services Provided at: [place], [place] CC: MD Wilton Day, [address] [place] [address] Humaira Gaviria MD [address] [place] [id number] MD Cosmo Kingston MD Michael Blank, MD documented in this encounterKind[facility]11-[facility]23 Instructions* Patient Instructions* Kristofer Calix MD - 03/19/2023 4:44 PM EST Continue Lovenox - patient prefers 40 mg (rather than rec 80mg) Take B12 supplement in the form of a sublingual tablet. Take Vitamin D3 5000 international unit(s) daily Check labs in 8 weeks Phone / Virtual call after documented in this encounterKind[facility]10-[facility]23 Hospital Discharge instructions Patient Education 02/15/2023 10:13:08 Ear Drops, Adult, Onwb-vx-Rcwq Ear Drops, Adult Your doctor has found [...] cannot use soap and water, use hand home [employer]ot rep. 2.Make sure your ears are clean and [...] you cannot use soapand water, use hand home [employer]ot rep. Follow these instructions at home: Use the [...] provider. Document Revised: 02/11/2020 Document Reviewed: 02/11/2020 [employer] Patient Education 2022 [employer] 02/15/2023 10:13:05 Otitis Externa, Onvi-ke-Ugcn Otitis Externa Otitis externa is an infection [...] if you start to feel better. Take mulo-cur-dbesfcn and prescription medicines only as told by [...] provider. Document Revised: 06/29/2021 Document Reviewed: 06/29/2021 [employer] Patient Education 2022 [employer]er. Follow Up Care 02/14/2023 12:28:12 With:PRAVEEN RESENDEZ FAAFP, Penelope Tony, CHRIS, PED [facility] [address] [facility] [place] [address]- When:Within 2 Month(s) [facility] 08-25-2023 Hospital Discharge instructions Patient [...] including vitamins, herbs, eye drops, creams, and hmea-ntd-ewuphcu medicines. ?Whether you are or may be [...] provider. Document Revised: 12/28/2021 Document Reviewed: 11/19/2020 [employer] Patient Education 2022 [employer]. 12/22/2022 15:19:23 Fatigue Fatigue If you have [...] Follow these instructions at home: Medicines Take brpw-wsr-poslirz and prescription medicines only as told by [...] the National Suicide Prevention Lifeline at or 237. This is open 24 hours a day. Text the Crisis Text Line at 993022. Summary If you have fatigue, you feel [...] provider. Document Revised: 02/06/2022 Document Reviewed: 02/06/2022 [employer] Patient Education 2022 [employer]. Follow Up Care 12/22/2022 10:22:02 With:Lourdes Urrutia Address: [facility] [address], [facility] [address]- When: only if needed [facility] 08-25-2023 Instructions* Patient Instructions* Kristofer Calix MD - 12/22/2022 10:13 AM EDT Continue Lovenox - patient prefers 40 mg (rather than rec 80mg) Take B12 supplement in the form of a sublingual tablet. Take Vitamin D3 5000 international unit(s) daily Check labs in 8 weeks Phone / Virtual call after documented in this encounterKind[facility]08[facility]23 History of Present illness Narrative* Kristofer Calix MD - 12/22/2022 9:55 AM EDT Images from the original note were not included. Kristofer Calix MD NAME: Sanna Rendon CLINIC NO.: [id number] DATE OF SERVICE: December 22, 2022 (Levon) [...] visit. Either the patient or their legal media sales representative has been informed of the risks and benefits of -- and alternatives to -- treatment through a remote evaluation andconsents to proceed with the evaluation remotely. CC: hypercoag state. ASSESSMENT: 37 year old woman with a prior history of CVA in 2016 and an antiphospholipid antibody that was identified much later in 2018. These were found in [place], [place]. I don't have access to these [...] a target-like rash shortly before presenting to [facility] in 2016 with headaches [...] and stayed on Lovenox Hgb 13.1 @ [facility] Recommended ER if persisting bleeding but she [...] age 69. Both lived in [facility] but she was adopted. She was not able to see ID in October and will be seeing Dr. Baugh next week. Also will have her see Dr. Hamlin for her clotting disorder and make any other recommendations to optimize her treatment. Updated Visit, October 08, 2020: Telephone only Received call from pt stating she was seen in [facility] for numbness in her chest, throat, and extremities, and sob which has been worsening over the last week. We arranged a telephone visit for her franci questions with me. Sanna Rendon is a 34 year old female seen for Hypercoagulable state and recent concerns and symptoms that required her to be seen at [facility]. She went to the ER with Gradual worsening of breathing after progressive tingling of fingers and legs. She currently remains very fatigued even though she is sleeping well. Now recalls that before her stroke she remembers having a bull's eye rash and was seen with severe headaches in [place], [place] - was found to have a [...] a root canal and was sent to [facility] for MRI which was negative but non-contrasted. [...] history goes back to January 2016 in [facility] where she had persisting headaches and slurred speech followed by lower extremity weakness. This took a few months to resolve and she is back to her normal state of being but some point in time during her her next she was seen by Dr. Humera Hyde in [place] as well and was found to have [...] CPE Hematology and Oncology Services Provided at: [place], [place] CC: MD Wilton Day, [address] [place] [address] Humaira Gaviria MD [address] [facility] [id number] MD Cosmo Kingston MD Michael Blank, MD documented in this encounterKind[facility]08-[facility]-2023 Miscellaneous Notes* Telephone Encounter - Roberta [...] later time. Roberta Haskins documented in this encounterKind[facility]06-[facility]23 Hospital Discharge instructions Patient Education 10/20/2022 [...] health care provider or diet and nutritional health coach (dietitian). This may include: ?Eating fewer calories. [...] provider. Document Revised: 06/12/2021 Document Reviewed: 06/12/2021 [employer] Patient Education 2022 [employer]. 10/20/2022 10:37:18 Preventing Type 2 Diabetes Mellitus [...] a registered dietitian. This diet and nutritional health coach can help you make a healthy eating plan and help you understand portion sizes and food labels. Where to find support Ask your health care provider to recommend a registered dietitian, a certified diabetes care and counselor education professor, or a weight loss program. Look for local or online weight loss groups. Join a gym, fitness club, or outdoor activity group, such as a walking club. Where to find more information For help and guidance and to learn more about diabetes and diabetes prevention, visit: [place] Diabetes Association (ADA): www.diabetes.org National [place] of Diabetes and Digestive and Kidney Diseases: [...] provider. Document Revised: 07/11/2021 Document Reviewed: 07/11/2021 [employer] Patient Education 2022 [employer]. 10/20/2022 10:37:17 Preventing Hypoglycemia Preventing Hypoglycemia Hypoglycemia [...] your hypoglycemia. Where to find more information [place] Diabetes Association: www.diabetes.org National [place] of Diabetes and Digestive and Kidney Diseases: [...] provider. Document Revised: 03/17/2021 Document Reviewed: 03/17/2021 [employer] Patient Education 2022 [employer]. 10/20/2022 10:37:16 Gestational Diabetes Mellitus, Diagnosis, Atty-kw-Oheb Gestational Diabetes Mellitus, Diagnosis Gestational diabetes mellitus [...] follow-up visits. Where to find more information [place] Diabetes Association (ADA): diabetes.org Association of Diabetes Care & Education Specialists (ADCES): diabeteseducator.org Centers for Disease Control and Prevention (CDC): cdc.gov [place] Association: americanpregnancy.org U.S. Department of Agriculture MyPlate: [...] provider. Document Revised: 09/20/2020 Document Reviewed: 09/20/2020 [employer] Patient Education 2022 [employer]. Follow Up Care 09/19/2022 14:47:09 With:PRAVEEN RESENDEZ FAAFP, CHRIS Perez, PED Address: [place] [address]- When:Within 3 Month(s) [facility] 06-01-2023 History of Present illness Narrative* Kristofer Calix MD - 09/28/2022 5:00 PM EDT Images from the original note were not included. Kristofer Calix MD NAME: Sanna Rendon CLINIC NO.: [id number] DATE OF SERVICE: September 28, 2022 (Levon) [...] visit. Either the patient or their legal media sales representative has been informed of the risks and benefits of -- and alternatives to -- treatment through a remote evaluation andconsents to proceed with the evaluation remotely. CC: hypercoag state. ASSESSMENT: 36 year old woman 25 weeks presents with a prior history of CVA in 2016 and anantiphospholipid antibody that was identified much later in 2018. These were found in [place], [place]. I don't have access to these [...] a target-like rash shortly before presenting to [facility] in 2016 with headaches [...] and stayed on Lovenox Hgb 13.1 @ [facility] Recommended ER if persisting bleeding but she [...] age 69. Both lived in [facility] but she was adopted. She was not able to see ID in October and will be seeing Dr. Baugh next week. Also will have her see Dr. Hamlin for her clotting disorder and make any other recommendations to optimize her treatment. Updated Visit, October 08, 2020: Telephone only Received call from pt stating she was seen in [facility] ER for numbness in her chest, throat, and extremities, and sob which has been worsening over the last week. We arranged a telephone visit for her toreview questions with me. Sanna Rendon is a 34 year old female seen for Hypercoagulable state and recent concerns and symptoms that required her to be seen at [facility] ER. She went to the ER with Gradual worsening of breathing after progressive tingling of fingers and legs. She currently remains very fatigued even though she is sleeping well. Now recalls that before her stroke she remembers having a bull's eye rash and was seen with severe headaches in [place], [place] - was found to have a [...] a root canal and was sent to [facility] for MRI which was negative but non-contrasted. [...] history goes back to January 2016 in [facility] where she had persisting headaches and slurred speech followed by lower extremity weakness. This took a few months to resolve and she is back to her normal state of being but some point in time during her her next she was seen by Dr. Humera Hyde in [place] as well and was found to have [...] CPE Hematology and Oncology Services Provided at: [place], [place] CC: MD Wilton Day, [address] [place] [address] Humaira Gaviria MD [address] [place] [address] [place] [address] MD Cosmo Kingston MD Michael Blank, MD documented in this encounterKindred [facility] [place]05-24-2023 Miscellaneous Notes* Telephone Encounter - Cheri Acharya Sec - 09/20/2022 7:06 AM EDT Cxed appt * Telephone Encounter - Valeri Yeung RN - 09/19/2022 3:29 PM EDT Patient would like to have labs drawn at [facility]. Called [facility] lab to get fax number. Lab orders faxed to [phone] Valeri Yeung RN PSS: Can you cancel lab appointment for 09/21/22 here. Thanks. Valeri Yeung RN documented in this encounterKindred [facility] [place]04-04-2023 Instructions* Patient Instructions* Kristofer Calix MD - 08/01/2022 10:56 AM EDT Continue Lovenox - patient prefers 40 mg (rather than rec 80mg) 8 weeks - labs Phone / Virtual call after documented in this encounterKindred [facility] [place]03-30-2023 History of Present illness Narrative* Kristofer Calix MD - 07/27/2022 1:18 PM EDT NAME: Sanna Rendon CLINIC NO.: [id number] DATE OF SERVICE: July 27, 2022 (Levon) [...] later in 2018. These were found in [place], [place]. I don't have access to these [...] a target-like rash shortly before presenting to [facility] in 2016 with headaches [...] age 69. Both lived in [facility] but she was adopted. She was not able to see ID in October and will be seeing Dr. Baugh next week. Also will have her see Dr. Hamlin for her clotting disorder and make any other recommendations to optimize her treatment. Updated Visit, October 08, 2020: Telephone only Received call from pt stating she was seen in [facility] ER for numbness in her chest, throat, and extremities, and sob which has been worsening over the last week. We arranged a telephone visit for her domingoeview questions with me. Sanna Rendon is a 34 year old female seen for Hypercoagulable state and recent concerns and symptoms that required her to be seen at [facility] ER. She went to the ER with Gradual worsening of breathing after progressive tingling of fingers and legs. She currently remains very fatigued even though she is sleeping well. Now recalls that before her stroke she remembers having a bull's eye rash and was seen with severe headaches in [place], [place] - was found to have a [...] a root canal and was sent to [facility] for MRI which was negative but non-contrasted. [...] history goes back to January 2016 in [facility] where she had persisting headaches and slurred speech followed by lower extremity weakness. This took a few months to resolve and she is back to her normal state of being but some point in time during her her next she was seen by Dr. Humera Hyde in [place] as well and was found to have [...] which included preparing to see the patient, grwa-hx-okux patient care, completing clinical documentation, obtaining and/or reviewing separately obtained history, performing a medically appropriate examination, counseling and educating the pat ient/family/caregiver, ordering medications, tests, or procedures, independently interpreting results (not separately reported), and care coordination (not separately reported). Kristofer Calix MD, CPE Hematology and Oncology Services Provided at: [place], [place] CC: MD Wil[place] Day, [address] [place] [address] Humaira Gaviria MD [address] [facility] [address] MD Cosmo Kingston MD Michael Blank, MD documented in this encounterKindred [facility] [place]12-07-2022 History of Present illness Narrative* Alison [...] to standard infusion rate. documented in this encounterKindred [facility] [place]12-06-2022 Miscellaneous Notes* Telephone Encounter - Marleen [...] questions answered. Pt transferred to front desk host at her request so she can reschedule dates of IV iron d/t otherappts. FELY: Pt would like to have Venofer ordered and not get Monoferric even if approved. Please place orders if agreeable. Meme Gonzalez RN documented in this encounterKindred Hospital [place]12-01-2022 Miscellaneous Notes* Telephone Encounter - Roberta [...] when available this week documented in this encounterKindred [facility] [place]11-28-2022 Instructions* Patient Instructions* Kristofer Calix MD - 03/27/2022 2:51 PM EST Continue Lovenox - patient prefers 40 mg (rather than rec 80mg) Consider IV iron Triage nurse to please call iron results when available this week Will recheck antiphospholipid antibodies as ordered and every 6 months. RTC in 8 weeks - labs same day. documented in this encounterKindred [facility] [place]11-28-2022 History of Present illness Narrative* Kristofer Calix MD - 03/27/2022 2:15 PM EST Images from the original note were not included. NAME: Sanna Rendon CLINIC NO.: [id number] DATE OF SERVICE: March 27, 2022 (radhaelaina) [...] later in 2018. These were found in [place], [place]. I don't have access to these [...] a target-like rash shortly before presenting to [facility] in 2016 with headaches [...] age 69. Both lived in [facility] but she was adopted. She was not able to see ID in October and will be seeing Dr. Baugh next week. Also will have her see Dr. Hamlin for her clotting disorder and make any other recommendations to optimize her treatment. Updated Visit, October 08, 2020: Telephone only Received call from pt stating she was seen in [facility] ER for numbness in her chest, throat, and extremities, and sob which has been worsening over the last week. We arranged a telephone visit for her chanw questions with me. Sanna Rendon is a 34 year old female seen for Hypercoagulable state and recent concerns and symptoms that required her to be seen at [facility] ER. She went to the ER with Gradual worsening of breathing after progressive tingling of fingers and legs. She currently remains very fatigued even though she is sleeping well. Now recalls that before her stroke she remembers having a bull's eye rash and was seen with severe headaches in [place], [place] - was found to have a [...] a root canal and was sent to [facility] for MRI which was negative but non-contrasted. [...] history goes back to January 2016 in [facility] where she had persisting headaches and slurred speech followed by lower extremity weakness. This took a few months to resolve and she is back to her normal state of being but some point in time during her her next she was seen by Dr. Humera Hyde in [place] as well and was found to have [...] which included preparing to see the patient, zrli-rb-opnk patient care, completing clinical documentation, obtaining and/or reviewing separately obtained history, performing a medically appropriate examination, counseling and educating the pat ient/family/caregiver, ordering medications, tests, or procedures, independently interpreting results (not separately reported), and care coordination (not separately reported). Kristofer Calix MD, CPE Hematology and Oncology Services Provided at: [place], [place] CC: MD Wil[place] Day, [address] [place] [address] Humaira Gaviria MD [address] [place] [id number] MD Cosmo Kingston MD Michael Blank, MD documented in this encounterKindred [facility] [place]10-03-2022 Instructions* Patient Instructions* Kristofer Calix MD - 01/30/2022 12:[address] Hamlin's expertise and will prescribe Lovenox - patient prefers 40 mg (rather than rec 80mg) Will recheck antiphospholipid antibodies as ordered and every 6 months. RTC in 8 weeks - labs same day. documented in this encounterKindred Hospital [place]10-03-2022 History of Present illness Narrative* Kristofer Calix MD - 01/30/2022 11:59 AM EDT Images from the original note were not included. NAME: Sanna Rendon CLINIC NO.: [id number] DATE OF SERVICE: January 30, 2022 Some [...] later in 2018. These were found in [place], [place]. I don't have access to these [...] a target-like rash shortly before presenting to [facility] in 2016 with headaches [...] age 69. Both lived in [facility] but she was adopted. She was not able to see ID in October and will be seeing Dr. Baugh next week. Also will have her see Dr. Hamlin for her clotting disorder and make any other recommendations to optimize her treatment. Updated Visit, October 08, 2020: Telephone only Received call from pt stating she was seen in [facility] ER for numbness in her chest, throat, and extremities, and sob which has been worsening over the last week. We arranged a telephone visit for her chanw questions with me. Sanna Rendon is a 34 year old female seen for Hypercoagulable state and recent concerns and symptoms that required her to be seen at [facility]. She went to the ER with Gradual worsening of breathing after progressive tingling of fingers and legs. She currently remains very fatigued even though she is sleeping well. Now recalls that before her stroke she remembers having a bull's eye rash and was seen with severe headaches in [facility] was found to have a stroke [...] a root canal and was sent to [facility] for MRI which was negative but non-contrasted. [...] history goes back to January 2016 in [facility] where she had persisting headaches and slurred speech followed by lower extremity weakness. This took a few months to resolve and she is back to her normal state of being but some point in time during her her next she was seen by Dr. Humera Hyde in [place] as well and was found to have [...] which included preparing to see the patient, gfor-ll-emto patient care, completing clinical documentation, obtaining and/or reviewing separately obtained history, performing a medically appropriate examination, counseling and educating the pat ient/family/caregiver, and ordering medications, tests, or procedures. Kristofer Calix MD, [place], [place] CC: MD Chalino Dayy Jeanine Herrmann, [address] [place] [address] Humaira Gaviria MD [address] [place] [id number] MD Cosmo Kingston MD Michael Blank, MD documented in this encounterKindred [facility] [place]10-03-2022 Nurse Note* Serina Dawson MA - 01/30/2022 11:55 AM EDT Patient states she may be diagnosed with gestational diabetes, she was from 215 to 52 a couple hours later after eating wheat cereal. She sees OB tomorrow. Serina Dawson MA documented in this encounterKindred Hospital [place]09-02-2022 Miscellaneous Notes* Telephone Encounter - Tonja Pope RN - 12/30/2021 10:15 AM EDT Call received from Sanna requesting refill of Lovenox 40 mg to be sent to [facility] in [place]. FELY: Please review and approve if you agree. Tonja Chery RN documented in this encounterKindred Hospital [facility]06-13-2022 Miscellaneous Notes* Telephone Encounter - Meme Easton RN - 10/10/2021 12:15 PM EDT Received call from pt requesting refill of Lovenox 40 mg to be sent to [facility] in [place]. FELY: Pt also states she had one episode of blood in her stool which was dripping blood which concerned her. She is not ready to move to 80 mg of Lovenox at this time. Order pending. Please review and sign if agreeable. Meme Easton RN documented in this encounterKindred Hospital [place]05-10-2022 Miscellaneous Notes* Telephone Encounter - Kristofer [...] agreeable. Meme Easton RN documented in this encounterKindred Hospital [facility]05-09-2022 Miscellaneous Notes* Telephone Encounter - Meme [...] advise. Meme Easton RN documented in this encounterKindred [facility]04-25-2022 Miscellaneous Notes* Telephone Encounter - Meme [...] Thoughts? Meme Easton RN documented in this encounterKindred Hospital [facility]04-22-2022 Hospital Discharge instructions Patient Education 08/19/2021 [...] including vitamins, herbs, eye drops, creams, and aeds-mwg-nwcvwmd medicines. ?Whether you are or may be [...] 02/11/2008 Document Revised: 08/05/2019 Document Reviewed: 02/18/2018 [employer] Patient Education 2020 [employer] 08/19/2021 13:02:21 Dysuria Dysuria Dysuria is [...] alcohol may irritate the prostate. Medicines Take kehs-axl-whmllbc and prescription medicines only as told by [...] 01/12/2005 Document Revised: 03/29/2018 Document Reviewed: 01/31/2018 [employer] Patient Education 2020 [employer]. 08/19/2021 13:02:17 Budget-Friendly Healthy Eating Budget-Friendly Healthy [...] frozen fruits, and frozen vegetables. Avoid buying kmjrm-nz-ldb foods, such as pre-cut fruits and vegetables [...] 12/18/2014 Document Revised: 04/17/2018 Document Reviewed: 04/17/2018 [employer] Patient Education 2020 [employer]. 08/19/2021 13:02:15 BMI for Adults BMI for [...] height. This can be done either in Portuguese (U.S[place] or metric measurements. Note that charts are available to help you find your BMI quickly and easily without having to do these calculations yourself. To calculate your BMI in Portuguese (U.S.) measurements, your health care provider will: [...] medical problems. BMI can be measured using Portuguese measurements or metric measurements. To interpret your [...] 12/26/2004 Document Revised: 03/29/2018 Document Reviewed: 02/27/2018 [employer] Patient Education 2020 [employer]. 08/19/2021 13:02:11 Paresthesia Paresthesia Paresthesia is an [...] fried or sweet foods. General instructions Take oora-zyz-rjveidi and prescription medicines only as told by [...] 04/06/2003 Document Revised: 05/12/2019 Document Reviewed: 04/25/2018 [employer] Patient Education 2020 [employer]. Follow Up Care 08/19/2021 09:17:52 With:PRAVEEN RESENDEZ FAAFP, Penelope Tony, CHRIS, PED Address: [address], [place] [address]- When:1 to 2 weeks [facility] 04-22-2022 Evaluation + Plan note Future Scheduled Tests Radiology* XR Spine Lumbosacral Minimum 4 Views 08/19/21 [facility]04-07-2022 Miscellaneous Notes* Telephone Encounter - Roberta Haskins - 08/04/2021 3:36 PM EDT Patient is scheduled for 09/[address] Elliott. Roberta Haskins * Telephone Encounter - Roberta Divine - 08/01/2021 1:05 PM EDT Sent Email to Cancer Answer Line to refer patient back to Dr. Cosmo Elliott Dx: Primary hypercoagulable state (HCC) Roberta Divine documented in this encounterKindred Hospital [facility]04-04-2022 Nurse Note* Ebony Redding Ma - 08/01/2021 12:48 PM EDT UA ran as ordered. Ebony Redding Ma documented in this encounterKindred Hospital [facility]03-28-2020 Evaluation + Plan note Future Appointments Appointment Date:07/25/2024 02:30:00 PM Scheduled Provider: [facility] Appoint[facility] Type:CV EKG (FT) Appointment Date:07/25/2024 03:00:00 PM Scheduled Provider: [facility] Appointment Type:CV Holter/Event (FT) Appointment Date:09/09/2024 08:20:00 AM Scheduled Provider:Penelope CASAS DO, FAAFP Location:[facility] Appointment Type:FM Open Future Scheduled Tests Laboratory* HgbA1c 08/05/24 * HgbA1c 11/04/24 Radiology* CT Soft Tissue Neck w/ Contrast 11/12/23 [facility] 03-28-2020 Evaluation + Plan note Future Appointments Appointment Date:07/25/2024 02:30:00 PM Scheduled Provider: [facility] Appointment Type:CV EKG (FT) Appointment Date:07/25/2024 03:00:00 PM Scheduled Provider: [facility] Appointment Type:CV Holter/Event (FT) Appointment Date:09/09/2024 [...] CT Soft Tissue Neck w/ Contrast 11/12/23 [facility] Evaluation + Plan note Future Appointments Appointment Date:11/08/2021 12:40:00 PM Scheduled Provider:Penelope CASAS DO, FAAFP Location:[facility] Appointment Type:FM Open Future Scheduled Tests Radiology* XR Spine Lumbosacral Minimum 4 Views 08/19/21 [facility] Evaluation + Plan note Future Appointments Appointment Date:11/08/2021 12:40:00 PM Scheduled Provider:Penelope CASAS DO, FAAFP Location:[facility] Appointment Type:FM Open Diagnostic Tests Pending * Urine Culture 08/19/21 Future Scheduled Tests Radiology* XR Spine Lumbosacral Minimum 4 Views [facility]ments Appointment Date:09/21/2022 10:00:00 AM Scheduled Provider:Penelope CASAS DO, FAAFP Location:[facility] App[facility]ments Appointment Date:10/20/2022 09:40:00 AM Scheduled Provider:Penelope CASAS DO, FAAFP [facility]ments Appointment Date:01/26/2023 10:40:00 AM Scheduled Provider:Penelope CASAS DO, FAAFP Location:[facility] Appointment Type: Open [facility] Evaluation + Plan note Future Appointments Appointment Date:04/17/2023 02:20:00 PM Scheduled Provider:Penelope CASAS DO, FAAFP Location:[facility] Appointment Type:FM Open Future Scheduled Tests Laboratory* HgbA1c 02/15/23 * Thyroid Stimulating Hormone 02/15/23 * Thyroid Stimulating Hormone 01/11/23 [facility] Evaluation + Plan note Future Appointments Appointment Date:07/24/2023 01:20:00 PM Scheduled Provider:Penelope CASAS DO, FAAFP Location:[facility] Appointment Type:FM Open Future Scheduled Tests Laboratory* HgbA1c 02/15/23 * Thyroid Stimulating Hormone [facility]ments Appointment Date:07/24/2023 01:20:00 PM Scheduled Provider:Penelope CASAS DO, FAAFP Location:[facility] Appointment Type: Open [facility] Evaluation + Plan note Future Appointments Appointment Date:12/03/2023 12:40:00 PM Scheduled Provider:Penelope CASAS DO, FAAFP Location:[facility] Appointment Type:FM Open Future Scheduled Tests Laboratory* HgbA1c 08/03/23 [facility] evaluation + Plan note Future [...] MRI Orbit Face Neck w/o contrast 11/09/23 [facility] evaluation + Plan note Future Appointments Appointment Date:01/11/2024 08:15:00 PM Scheduled Provider: [facility] Appointment Type:FRAME STRIPPER Sleep Study PSG () Appointment Date:01/29/2024 01:20:00 PM Scheduled Provider:Penelope CASAS DO, FAAFP Location:[facility] Appointment Type:FM Open Diagnostic Tests Pending * Cortisol 12/06/23 * T3 Free 12/06/23 Future Scheduled Tests Laboratory* HgbA1c 08/03/23 Radiology* CT Soft Tissue Neck w/ Contrast 11/12/23 [facility] evaluation + Plan note Future Appointments [...] w/ Contrast 11/12/23 [facility] evaluation + Plan note Future Appointments Appointment Date:05/16/2024 11:40:00 AM Scheduled Provider:Penelpoe CASAS DO, FAAFP Location:[facility] Appointment Type:FM Open Future Scheduled Tests Laboratory* HgbA1c 05/07/24 * HgbA1c 08/05/24 * HgbA1c 11/04/24 Radiology* CT Soft Tissue Neck w/ Contrast 11/12/23 [facility] evaluation + Plan note Future Appointments Appointment Date:05/16/2024 11:40:00 AM Scheduled Provider:Penelope CASAS DO, FAAFP Location:[facility] Appointment Type:FM Open Diagnostic Tests Pending * HIV Screen 4th Generation wRfx 02/23/24 Future Scheduled Tests Laboratory* HgbA1c 05/07/24 * HgbA1c 08/05/24 * HgbA1c 11/04/24 Radiology* CT Soft Tissue Neck w/ Contrast 11/12/23 [facility] evaluation + Plan note Future Appointments Appointment Date:05/16/2024 11:40:00 AM Scheduled Provider:Penelope CASAS DO, FAAFP Location:[facility] Appointment Type:FM Open Future Scheduled Tests Laboratory* HgbA1c 08/05/24 * HgbA1c 11/04/24 Radiology* CT Soft Tissue Neck w/ Contrast 11/12/23 [facility] evaluation + Plan note Future Appointments Appointment Date:05/16/2024 11:40:00 AM Scheduled Provider:Penelope CASAS DO, FAAFP Location:[facility] Appointment Type:FM Open Diagnostic Tests Pending * Urine Culture 03/01/24 Future Scheduled Tests Laboratory* HgbA1c 08/05/24 * HgbA1c 11/04/24 Radiology* CT Soft Tissue Neck w/ Contrast 11/12/23 [facility] evaluation + Plan note Future Appointments Appointment Date:07/07/2024 02:20:00 PM Scheduled Provider:Penelope CASAS DO, FAAFP Location:[facility] Appointment Type:FM Open Future Scheduled Tests Laboratory* HgbA1c 08/05/24 * HgbA1c 11/04/24 Radiology* CT Soft Tissue Neck w/ Contrast 11/12/23 [facility] evaluation + Plan note Future Appointments Appointment Date:09/09/2024 08:20:00 AM Scheduled Provider:Penelope CASAS DO, FAAFP Location:[facility] Appointment Type:FM Open Future Scheduled Tests Laboratory* HgbA1c 08/05/24 * HgbA1c 11/04/24 Radiology* CT Soft Tissue Neck w/ Contrast 11/12/23 [facility] evaluation note* Diagnosis Infective urethritis- Primary Urethritis, unspecified [facility] Primary hypercoagulable state (HCC) Primary hypercoagulable state CVA, old, speech/language deficit Speech and language deficit, unspecified, 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 Hyposmolality and/or hyponatremia documented in this encounter [facility] note* Diagnosis Primary hypercoagulable state (HCC) Primary hypercoagulable state CVA, old, speech/language deficit Speech and language deficit, unspecified, 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 Hyposmolality and/or hyponatremia documented in this encounter [facility] note* Diagnosis Primary hypercoagulable state (HCC)- Primary Primary hypercoagulable state CVA, old, speech/language deficit Speech and language deficit, unspecified, late effect of cerebrovascular disease Antiphospholipid antibody syndrome (HCC) Primary hypercoagulable state Anemia, unspecified type documented in this encounter [facility] note* Diagnosis Iron deficiency anemia secondary to blood loss (chronic) Iron deficiency anemia of Anemia of mother, complicating , childbirth, or the puerperium, unspecified as to episode of care documented in this encounter [facility] note* 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 Iron deficiency anemia of Anemia of mother, complicating , childbirth, or the puerperium, unspecified as to episode of care documented in this encounter [facility] note* Diagnosis Primary hypercoagulable state (HCC) Primary hypercoagulable state CVA, old, speech/language deficit Speech and language deficit, unspecified, 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 Hyposmolality and/or hyponatremia documented in this encounter [facility] note* 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 Iron deficiency anemia of Anemia of mother, complicating , childbirth, or the puerperium, unspecified as to episode of care documented in this encounter [facility] note* Diagnosis Primary hypercoagulable state (HCC) Primary hypercoagulable state CVA, old, speech/language deficit Speech and language deficit, unspecified, 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 Hyposmolality and/or hyponatremia documented in this encounter [facility] note* Diagnosis Primary hypercoagulable state (HCC)- Primary Primary hypercoagulable state 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, old, speech/language deficit Speech and language deficit, unspecified, late effect of cerebrovascular disease [facility] Primary hypercoagulable state (HCC) Primary hypercoagulable state CVA, old, speech/language deficit Speech and language deficit, unspecified, 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 Hyposmolality and/or hyponatremia [facility] Primary hypercoagulable state (HCC)- Primary Primary hypercoagulable state Iron deficiency anemia of Anemia of mother, complicating , childbirth, or the puerperium, unspecified as to episode of care Iron deficiency anemia secondary to blood loss (chronic) Vitamin D deficiency Unspecified vitamin D deficiency [facility] Diagnosis Primary hypercoagulable state (HCC)- Primary Primary hypercoagulable state Iron deficiency anemia secondary to blood loss (chronic) Vitamin D deficiency Unspecified vitamin D deficiency CVA, old, speech/language deficit Speech and language deficit, unspecified, late effect of cerebrovascular disease Antiphospholipid antibody syndrome (HCC) Primary hypercoagulable state [facility] Diagnosis Primary hypercoagulable state (HCC)- Primary Primary hypercoagulable state CVA, old, speech/language deficit Speech and language deficit, unspecified, late effect of cerebrovascular disease Hypercalcemia Vitamin D deficiency Unspecified vitamin D deficiency Iron deficiency anemia secondary to blood loss (chronic) Malaise and fatigue Other malaise and fatigue [facility] Diagnosis Vitamin D deficiency- Primary [...] loss (chronic) [facility] 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 [facility] Diagnosis Iron deficiency anemia of - Primary Anemia of mother, complicating , childbirth, or the puerperium, unspecified as to episode of care Iron deficiency anemia secondary to blood loss (chronic) [facility] Diagnosis Iron deficiency anemia of - Primary Anemia of mother, complicating , childbirth, or the puerperium, unspecified as to episode of care Iron deficiency anemia secondary to blood loss (chronic) [facility] 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 Vitamin D deficiency Unspecified vitamin D deficiency Malaise and fatigue Other malaise and fatigue [facility]* Diagnosis Primary hypercoagulable state (HCC) Primary hypercoagulable state CVA, old, speech/language deficit Speech and language deficit, unspecified, 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 Hyposmolality and/or hyponatremia [facility] Diagnosis Missed menses , unspecified gestational age Encounter for supervision of normal first in first trimester Hypothyroidism (acquired) ([facility]/HCC) Unspecified hypothyroidism Low vitamin D level documented in this encounter [facility]* Diagnosis 14 weeks gestation of Second trimester state, incidental Confirm viability with history of miscarriage, ultrasound Encounter for routine screening for malformation using ultrasonics documented in this encounter [facility] HealthcareEvaluation noteNo assessment information availablePremier Health [facility] Work Phone: Evaluation note* Diagnosis Primary hypercoagulable state (HCC)- Primary Primary hypercoagulable state CVA, old, speech/language deficit Speech and language deficit, unspecified, 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) Vitamin D deficiency Unspecified vitamin D deficiency Antiphospholipid antibody syndrome (HCC) Primary hypercoagulable state [facility]* Diagnosis Follow-up visit after miscarriage Abnormal TSH History of thyroid disease documented in this encounter [facility] note* Diagnosis Vaginal bleeding Other specified noninflammatory disorder of vagina Dizziness Dizziness and giddiness Abnormal TSH Vaginal discharge Leukorrhea, not specified as infective Pelvic pain in female Unspecified symptom associated with female genital organs documented in this encounter [facility]Evaluation note* Diagnosis Irregular menstrual cycle documented in this encounter [facility] note* Diagnosis Primary hypercoagulable state (HCC) Primary hypercoagulable state CVA, old, speech/language deficit Speech and language deficit, unspecified, 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 Hyposmolality and/or hyponatremia [facility]* Diagnosis Antiphospholipid antibody positive- Primary Other and unspecified nonspecific immunological findings Iron deficiency anemia secondary to blood loss (chronic) Malaise and fatigue Other malaise and fatigue Vitamin D deficiency Unspecified vitamin D deficiency [facility] Diagnosis Amenorrhea Absence of menstruation Missed menses , unspecified gestational age Encounter for supervision of normal first in first trimester Thyroid disease ([facility]/HCC) Unspecified disorder of thyroid documented in this encounter [facility] note* Diagnosis Gestational diabetes mellitus (GDM), antepartum, gestational diabetes method of control unspecified- Primary [facility] Diagnosis Primary hypercoagulable state (HCC) Primary hypercoagulable state CVA, old, speech/language deficit Speech and language deficit, unspecified, 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 Hyposmolality and/or hyponatremia [facility]* Diagnosis Primary hypercoagulable state (HCC)- Primary Primary hypercoagulable state CVA, old, speech/language deficit Speech and language deficit, unspecified, 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 Hyposmolality and/or hyponatremia Personal history of TIA (transient ischemic attack) Transient ischemic attack (TIA), and cerebral infarction without residual deficits [facility] Diagnosis Second trimester (HHS-HCC) state, incidental 13 weeks gestation of ([facility] Thyroid disease Unspecified disorder of thyroid Multigravida of advanced maternal age in second trimester ([facility]) Gestational diabetes mellitus (GDM), antepartum, gestational diabetes method of control unspecified([facility]) Elevated glucose tolerance test Impaired glucose tolerance test documented in this encounter [facility]Evaluation note* Diagnosis Gestational diabetes mellitus (GDM), antepartum, gestational diabetes method of control unspecified- Primary [facility] Diagnosis Second trimester (HHS-HCC) state, incidental 16 weeks gestation of ([facility]) Screening, , for anatomic survey ([facility]) Encounter for anatomic survey Vaginal discharge Leukorrhea, not specified as infective Sinus headache Headache [facility] Insulin controlled gestational diabetes mellitus (GDM) in second trimester- Primary [facility] Diagnosis 19 weeks gestation of (HHS-HCC) Second trimester (HHS-HCC) state, incidental Thyroid disease Unspecified disorder of thyroid Multigravida of advanced maternal age in second trimester (HHS-HCC) Gestational diabetes mellitus (GDM), antepartum, gestational diabetes method of control unspecified(HHS-HCC) [facility] Diagnosis Gestational diabetes mellitus (GDM) in second trimester controlled on oral hypoglycemic drug- Primary [facility]* Diagnosis Antiphospholipid antibody positive- Primary Other and unspecified nonspecific immunological findings Iron deficiency anemia secondary to blood loss (chronic) Vitamin D deficiency Unspecified vitamin D deficiency Primary hypercoagulable state (HCC) Primary hypercoagulable state [facility]* Diagnosis Gestational diabetes mellitus (GDM) in second trimester controlled on oral hypoglycemic drug- Primary [facility] Diagnosis Multigravida of advanced maternal age in second trimester- Primary Antiphospholipid syndrome complicating , antepartum Gestational diabetes mellitus (GDM) in second trimester controlled on oral hypoglycemic drug Insulin controlled gestational diabetes mellitus (GDM) in second trimester AMA (advanced maternal age) multigravida 35+, second trimester Hypothyroidism, unspecified type [facility] Diagnosis 22 weeks gestation [...] Hyposmolality and/or hyponatremia [facility] Diagnosis Multigravida of advanced [...] antepartum, gestational diabetes method of control unspecified([facility]) Multigravida of advanced maternal age in second trimester ([facility]) H/O loss Lightheaded Dizziness and giddiness Dizziness [...] state, incidental 25 weeks gestation of ([facility]) Gestational diabetes mellitus (GDM), antepartum, gestational diabetes method of control unspecified([facility]) Anticoagulant long-term use Encounter for long-term (current) use of anticoagulants Antiphospholipid antibody positive Other and unspecified nonspecific immunological findings Antiphospholipid antibody syndrome ([facility]) Primary hypercoagulable state documented in this encounter [facility]* Diagnosis 27 weeks gestation of - Primary Multigravida of advanced maternal age in third trimester Gestational diabetes mellitus (GDM) in second trimester controlled on oral hypoglycemic drug Antiphospholipid syndrome complicating , antepartum Antiphospholipid syndrome Primary hypercoagulable state [facility] Diagnosis Third trimester (HHS-HCC) state, incidental 28 weeks gestation of ([facility]) Anemia complicating childbirth ([facility]) Anticoagulant long-term use Encounter for long-term (current) use of anticoagulants Antiphospholipid antibody positive Other and unspecified nonspecific immunological findings Blood pressure elevated without history of HTN Coagulation defect, unspecified ([facility]) documented [facility] encounter [facility]* [...] Narrative No data available for this section [facility] Discharge instructions No data available for this section [facility]ructionsNot on filedocumented in this encounter [facility] [...] be sent through Care Everywhere. * Preeclampsia (Portuguese) documented in this encounter[facility] SystemInstructionsNot on file documented in this encounterProMedica Health SystemInstructionsNot on file documented in this encounterProMedica Health SystemInstructionsNot on file documented in this encounterProMedica Health SystemInstructionsNot on file documented in this encounterProMedica Health SystemInstructions* Attachments The following attachments cannot be sent through Care Everywhere. * Preeclampsia (Portuguese) documented in this encounterProMedica Health SystemInstructionsNot on file documented in this encounterProMedica Health SystemInstructionsNot on file documented in this encounterProMedica Health SystemInstructionsNot on file documented in this encounterProMedica Health SystemProgress note No data available for this section [facility] HospitalReason for referral (narrative) , pt reported hx of nasal polyps and deviated septum but never had surgery done Referred by: Shirlene YEBOAH, Lourdes Baltazar [facility] Reason for visit Narrative* Consultation (Urgent) - Pending ReviewSpecialtyDiagnoses / ProceduresReferred By ContactReferred To ContactRheumatology Diagnoses 22 weeks gestation of Antiphospholipid syndrome complicating , antepartum Mukul Noyola MD [address] [facility], [address] [place] [id number] Phone: tel: fax: Sam Callahan MD MPH [address] [id number] Phone: tel: fax: Referral IDStatusReasonStart DateExpiration DateVisits RequestedVisits [id number] Review Specialty Services Required [facility] Summary Purpose Family History No [...] a 30 minute post dose observation. Rate/Dose Gqruns8604/05/2022 2:44 PM MZD538.67 mL/ruLuskagnlg87/07/2022 2:25 PM [id number] mL/hrNew Bag/Syringe/Ekkxft8904/05/2022 1:52 PM VQJ346 mg166.67 mL/hr Medication OrderMAR ActionAction DateDoseRateSite iron sucrose 300 mg in NaCl 0.9% 250 mL (VENOFER) 300 mg, INTRAVENOUS, at 166.67 mL/hr, Administer over 90 Minutes, ONCE, 1 dose, On Christie 04/20/22 at 1400, Please conduct a 30 minute post dose observation. New Bag/Syringe/Ykfhmf7904/20/2022 2:01 PM [id number] mg166.67 mL/hr Additional Source Comments INFORMATION SOURCE (unrecogn ized section and content) DATE CREATED AUTHOR 10/22/2017 [facility] DATE CREATED AUTHOR AUTHOR'S ORGANIZ ATION 11/14/2017 [facility] DATE CREATED AUTHOR AUTHOR'S ORGANIZ ATION 06/18/2018 [facility] DATE CREATED AUTHOR AUTHOR'S ORGANIZ ATION 12/30/2021 [facility] DATE CREATED AUTHOR AUTHOR'S ORGANIZ ATION 06/09/2022 [facility] DATE CREATED AUTHOR AUTHOR'S ORGANIZ ATION 09/29/2023 [facility] DATE CREATED AUTHOR AUTHOR'S ORGANIZ ATION 12/03/2023 [facility] DATE CREATED AUTHOR AUTHOR'S ORGANIZ ATION 12/09/2023 [facility] DATE CREATED AUTHOR AUTHOR'S ORGANIZ ATION 12/10/2023 [facility] DATE CREATED AUTHOR AUTHOR'S ORGANIZ ATION 01/27/2024 [facility] DATE CREATED AUTHOR AUTHOR'S ORGANIZ ATION 02/24/2024 [facility] DATE CREATED AUTHOR AUTHOR'S ORGANIZ ATION 02/26/2024 [facility] DATE CREATED AUTHOR AUTHOR'S ORGANIZ ATION 02/28/2024 [facility] DATE CREATED AUTHOR AUTHOR'S ORGANIZ ATION 03/02/2024 [facility] DATE CREATED AUTHOR AUTHOR'S ORGANIZ ATION 03/03/2024 [facility] DATE CREATED AUTHOR AUTHOR'S ORGANIZ ATION 05/15/2024 [facility] DATE CREATED AUTHOR AUTHOR'S ORGANIZ ATION 05/17/2024 [facility] DATE CREATED AUTHOR AUTHOR'S ORGANIZ ATION 05/18/2024 [facility] DATE CREATED AUTHOR AUTHOR'S ORGANIZ ATION 05/19/2024 [facility] DATE CREATED AUTHOR AUTHOR'S ORGANIZ ATION 06/11/2024 [facility] DATE CREATED AUTHOR AUTHOR'S ORGANIZ ATION 06/17/2024 [facility] DATE CREATED AUTHOR AUTHOR'S ORGANIZ ATION 07/09/2024 [facility] DATE CREATED AUTHOR AUTHOR'S ORGANIZ ATION 07/12/2024 [facility] DATE CREATED AUTHOR AUTHOR'S ORGANIZ ATION 07/15/2024 [facility] DATE CREATED AUTHOR AUTHOR'S ORGANIZ ATION 08/24/2024 [facility] DATE CREATED AUTHOR AUTHOR'S ORGANIZ ATION 08/26/2024 [facility] DATE CREATED AUTHOR AUTHOR'S ORGANIZ ATION 09/01/2024 [facility] DATE CREATED AUTHOR AUTHOR'S ORGANIZ ATION 09/08/2024 [facility] DATE CREATED AUTHOR AUTHOR'S ORGANIZ ATION 09/11/2024 [facility] DATE CREATED AUTHOR AUTHOR'S ORGANIZ ATION 12/09/2024 [facility] DATE CREATED AUTHOR AUTHOR'S ORGANIZ ATION 01/18/2025 [facility] DATE CREATED AUTHOR AUTHOR'S ORGANIZ ATION 02/07/2025 [facility] DATE CREATED AUTHOR AUTHOR'S ORGANIZ ATION 02/13/2025 [facility] DATE CREATED AUTHOR AUTHOR'S ORGANIZ ATION 03/03/2025 [facility] DATE CREATED AUTHOR AUTHOR'S ORGANIZ ATION 03/11/2025 [facility] DATE CREATED AUTHOR AUTHOR'S ORGANOSEAS ATION 03/12/2025 [facility] Source Comments (unrecognize d section and content) In the event this informatio n is protected by the Federal Confidentiality of Alcohol and Drug Abuse Patient Records regulations: The Federal rules restrict any use of the information to criminally investigate or prosecute any alcohol or drug abuse patient.[facility] the event this information is protected by the Federal Confidentiality of Alcohol and Drug Abuse Patient Records regulations: The Federal rules restrict any use of the information to criminally investigate or prosecute any alcohol or drug abuse patient.[facility] DaytonIn the event this information is protected by the Federal Confidentiality of Alcohol and Drug Abuse Patient Records regulations: The Federal rules restrict any use of the information to criminally investigate or prosecute any alcohol or drug abuse patient.[facility] DaytonIn the event this information is protected by the Federal Confidentiality of Alcohol and Drug Abuse Patient Records regulations: The Federal rules restrict any use of the information to criminally investigate or prosecute any alcohol or drug abuse patient.[facility] DaytonIn the event this information is protected by the Federal Confidentiality of Alcohol and Drug Abuse Patient Records regulations: The Federal rules restrict any use of the information to criminally investigate or prosecute any alcohol or drug abuse patient.[facility] DaytonIn the event this information is protected by the Federal Confidentiality of Alcohol and Drug Abuse Patient Records regulations: The Federal rules restrict any use of the information to criminally investigate or prosecute any alcohol or drug abuse patient.[facility] DaytonIn the event this information is protected by the Federal Confidentiality of Alcohol and Drug Abuse Patient Records regulations: The Federal rules restrict any use of the information to criminally investigate or prosecute any alcohol or drug abuse patient.[facility] DaytonIn the event this information is protected by the Federal Confidentiality of Alcohol and Drug Abuse Patient Records regulations: The Federal rules restrict any use of the information to criminally investigate or prosecute any alcohol or drug abuse patient.[facility] DaytonIn the event this information is protected by the Federal Confidentiality of Alcohol and Drug Abuse Patient Records regulations: The Federal rules restrict any use of the information to criminally investigate or prosecute any alcohol or drug abuse patient.[facility] DaytonIn the event this information is protected by the Federal Confidentiality of Alcohol and Drug Abuse Patient Records regulations: The Federal rules restrict any use of the information to criminally investigate or prosecute any alcohol or drug abuse patient.[facility] DaytonIn the event this information is protected by the Federal Confidentiality of Alcohol and Drug Abuse Patient Records regulations: The Federal rules restrict any use of the information to criminally investigate or prosecute any alcohol or drug abuse patient.[facility] DaytonIn the event this information is protected by the Federal Confidentiality of Alcohol and Drug Abuse Patient Records regulations: The Federal rules restrict any use of the information to criminally investigate or prosecute any alcohol or drug abuse patient.[facility] DaytonIn the event this information is protected by the Federal Confidentiality of Alcohol and Drug Abuse Patient Records regulations: The Federal rules restrict any use of the information to criminally investigate or prosecute any alcohol or drug abuse patient.[facility] DaytonIn the event this information is protected by the Federal Confidentiality of Alcohol and Drug Abuse Patient Records regulations: The Federal rules restrict any use of the information to criminally investigate or prosecute any alcohol or drug abuse patient.[facility] DaytonIn the event this information is protected by the Federal Confidentiality of Alcohol and Drug Abuse Patient Records regulations: The Federal rules restrict any use of the information to criminally investigate or prosecute any alcohol or drug abuse patient.[facility] DaytonIn the event this information is protected by the Federal Confidentiality of Alcohol and Drug Abuse Patient Records regulations: The Federal rules restrict any use of the information to criminally investigate or prosecute any alcohol or drug abuse patient.[facility] DaytonIn the event this information is protected by the Federal Confidentiality of Alcohol and Drug Abuse Patient Records regulations: The Federal rules restrict any use of the information to criminally investigate or prosecute any alcohol or drug abuse patient.[facility] DaytonIn the event this information is protected by the Federal Confidentiality of Alcohol and Drug Abuse Patient Records regulations: The Federal rules restrict any use of the information to criminally investigate or prosecute any alcohol or drug abuse patient.[facility] DaytonIn the event this information is protected by the Federal Confidentiality of Alcohol and Drug Abuse Patient Records regulations: The Federal rules restrict any use of the information to criminally investigate or prosecute any alcohol or drug abuse patient.[facility] DaytonIn the event this information is protected by the Federal Confidentiality of Alcohol and Drug Abuse Patient Records regulations: The Federal rules restrict any use of the information to criminally investigate or prosecute any alcohol or drug abuse patient.[facility] DaytonIn the event this information is protected by the Federal Confidentiality of Alcohol and Drug Abuse Patient Records regulations: The Federal rules restrict any use of the information to criminally investigate or prosecute any alcohol or drug abuse patient.[facility] DaytonIn the event this information is protected by the Federal Confidentiality of Alcohol and Drug Abuse Patient Records regulations: The Federal rules restrict any use of the information to criminally investigate or prosecute any alcohol or drug abuse patient.[facility] DaytonIn the event this information is protected by the Federal Confidentiality of Alcohol and Drug Abuse Patient Records regulations: The Federal rules restrict any use of the information to criminally investigate or prosecute any alcohol or drug abuse patient.[facility] DaytonIn the event this information is protected by the Federal Confidentiality of Alcohol and Drug Abuse Patient Records regulations: The Federal rules restrict any use of the information to criminally investigate or prosecute any alcohol or drug abuse patient.[facility] DaytonIn the event this information is protected by the Federal Confidentiality of Alcohol and Drug Abuse Patient Records regulations: The Federal rules restrict any use of the information to criminally investigate or prosecute any alcohol or drug abuse patient.[facility] DaytonIn the event this information is protected by the Federal Confidentiality of Alcohol and Drug Abuse Patient Records regulations: The Federal rules restrict any use of the information to criminally investigate or prosecute any alcohol or drug abuse patient.[facility] DaytonIn the event this information is protected by the Federal Confidentiality of Alcohol and Drug Abuse Patient Records regulations: The Federal rules restrict any use of the information to criminally investigate or prosecute any alcohol or drug abuse patient.[facility] DaytonIn the event this information is protected by the Federal Confidentiality of Alcohol and Drug Abuse Patient Records regulations: The Federal rules restrict any use of the information to criminally investigate or prosecute any alcohol or drug abuse patient.[facility] DaytonIn the event this information is protected by the Federal Confidentiality of Alcohol and Drug Abuse Patient Records regulations: The Federal rules restrict any use of the information to criminally investigate or prosecute any alcohol or drug abuse patient.[facility] DaytonIn the event this information is protected by the Federal Confidentiality of Alcohol and Drug Abuse Patient Records regulations: The Federal rules restrict any use of the information to criminally investigate or prosecute any alcohol or drug abuse patient.[facility] DaytonIn the event this information is protected by the Federal Confidentiality of Alcohol and Drug Abuse Patient Records regulations: The Federal rules restrict any use of the information to criminally investigate or prosecute any alcohol or drug abuse patient.[facility] DaytonIn the event this information is protected by the Federal Confidentiality of Alcohol and Drug Abuse Patient Records regulations: The Federal rules restrict any use of the information to criminally investigate or prosecute any alcohol or drug abuse patient.[facility] DaytonIn the event this information is protected by the Federal Confidentiality of Alcohol and Drug Abuse Patient Records regulations: The Federal rules restrict any use of the information to criminally investigate or prosecute any alcohol or drug abuse patient.[facility] DaytonIn the event this information is protected by the Federal Confidentiality of Alcohol and Drug Abuse Patient Records regulations: The Federal rules restrict any use of the information to criminally investigate or prosecute any alcohol or drug abuse patient.[facility] DaytonIn the event this information is protected by the Federal Confidentiality of Alcohol and Drug Abuse Patient Records regulations: The Federal rules restrict any use of the information to criminally investigate or prosecute any alcohol or drug abuse patient.[facility] DaytonIn the event this information is protected by the Federal Confidentiality of Alcohol and Drug Abuse Patient Records regulations: The Federal rules restrict any use of the information to criminally investigate or prosecute any alcohol or drug abuse patient.[facility] DaytonIn the event this information is protected by the Federal Confidentiality of Alcohol and Drug Abuse Patient Records regulations: The Federal rules restrict any use of the information to criminally investigate or prosecute any alcohol or drug abuse patient.[facility] DaytonIn the event this information is protected by the Federal Confidentiality of Alcohol and Drug Abuse Patient Records regulations: The Federal rules restrict any use of the information to criminally investigate or prosecute any alcohol or drug abuse patient.[facility] DaytonIn the event this information is protected by the Federal Confidentiality of Alcohol and Drug Abuse Patient Records regulations: The Federal rules restrict any use of the information to criminally investigate or prosecute any alcohol or drug abuse patient.[facility] DaytonIn the event this information is protected by the Federal Confidentiality of Alcohol and Drug Abuse Patient Records regulations: The Federal rules restrict any use of the information to criminally investigate or prosecute any alcohol or drug abuse patient.[facility] DaytonIn the event this information is protected by the Federal Confidentiality of Alcohol and Drug Abuse Patient Records regulations: The Federal rules restrict any use of the information to criminally investigate or prosecute any alcohol or drug abuse patient.[facility] DaytonIn the event this information is protected by the Federal Confidentiality of Alcohol and Drug Abuse Patient Records regulations: The Federal rules restrict any use of the information to criminally investigate or prosecute any alcohol or drug abuse patient.[facility] DaytonIn the event this information is protected by the Federal Confidentiality of Alcohol and Drug Abuse Patient Records regulations: The Federal rules restrict any use of the information to criminally investigate or prosecute any alcohol or drug abuse patient.[facility] DaytonIn the event this information is protected by the Federal Confidentiality of Alcohol and Drug Abuse Patient Records regulations: The Federal rules restrict any use of the information to criminally investigate or prosecute any alcohol or drug abuse patient.[facility] DaytonIn the event this information is protected by the Federal Confidentiality of Alcohol and Drug Abuse Patient Records regulations: The Federal rules restrict any use of the information to criminally investigate or prosecute any alcohol or drug abuse patient.[facility] DaytonIn the event this information is protected by the Federal Confidentiality of Alcohol and Drug Abuse Patient Records regulations: The Federal rules restrict any use of the information to criminally investigate or prosecute any alcohol or drug abuse patient.[facility] DaytonIn the event this information is protected by the Federal Confidentiality of Alcohol and Drug Abuse Patient Records regulations: The Federal rules restrict any use of the information to criminally investigate or prosecute any alcohol or drug abuse patient.[facility] DaytonIn the event this information is protected by the Federal Confidentiality of Alcohol and Drug Abuse Patient Records regulations: The Federal rules restrict any use of the information to criminally investigate or prosecute any alcohol or drug abuse patient.[facility] DaytonIn the event this information is protected by the Federal Confidentiality of Alcohol and Drug Abuse Patient Records regulations: The Federal rules restrict any use of the information to criminally investigate or prosecute any alcohol or drug abuse patient.[facility] DaytonIn the event this information is protected by the Federal Confidentiality of Alcohol and Drug Abuse Patient Records regulations: The Federal rules restrict any use of the information to criminally investigate or prosecute any alcohol or drug abuse patient.[facility] DaytonIn the event this information is protected by the Federal Confidentiality of Alcohol and Drug Abuse Patient Records regulations: The Federal rules restrict any use of the information to criminally investigate or prosecute any alcohol or drug abuse patient.[facility] DaytonIn the event this information is protected by the Federal Confidentiality of Alcohol and Drug Abuse Patient Records regulations: The Federal rules restrict any use of the information to criminally investigate or prosecute any alcohol or drug abuse patient.[facility] DaytonIn the event this information is protected by the Federal Confidentiality of Alcohol and Drug Abuse Patient Records regulations: The Federal rules restrict any use of the information to criminally investigate or prosecute any alcohol or drug abuse patient.[facility] DaytonIn the event this information is protected by the Federal Confidentiality of Alcohol and Drug Abuse Patient Records regulations: The Federal rules restrict any use of the information to criminally investigate or prosecute any alcohol or drug abuse patient.[facility] DaytonIn the event this information is protected by the Federal Confidentiality of Alcohol and Drug Abuse Patient Records regulations: The Federal rules restrict any use of the information to criminally investigate or prosecute any alcohol or drug abuse patient.[facility] Care Teams (unrecognized sec tion and content) Team MemberRelationshipSpecialtyStart DateEnd Date Humaira Gaviria MD [address] [place] [address] PCP - GeneralInternal Medicine07/05/18 Jonny Wilcox MD [address] [facility] [place] [address] Primary Staff PhysicianCardiology07/16/18Team MemberRelationshipSpecialtyStart DateEnd Date Humaira Gaviria MD [address] [place] [address] PCP - GeneralInternal Medicine07/05/18 Jonny Wilcox MD [address] [place] [address] Primary Staff PhysicianCardiology07/16/18Team MemberRelationshipSpecialtyStart DateEnd Date Humaira Gaviria MD [address] [place] [address] PCP - GeneralInternal Medicine07/05/18 Jonny Wilcox MD [address] [place] [address] Primary Staff PhysicianCardiology07/16/18Team MemberRelationshipSpecialtyStart DateEnd Date Humaira Gaviria MD [address] [place] [place] [address] PCP - GeneralInternal Medicine07/05/18 Jonny Wilcox MD [address] [place] [address] Primary Staff PhysicianCardiology07/16/18Team MemberRelationshipSpecialtyStart DateEnd Date Humaira Gaviria MD [address] [place] [place] [address] PCP - GeneralInternal Medicine07/05/18 Jonny Wilcox MD [address] [place] [address] Primary Staff PhysicianCardiology07/16/18 [place] [address] [place] [address] PhysicianHematology/Oncology09/14/21 Davida Restrepo RN [address] [place] [address] Specialty Care CoordinatorHematology/Oncology09/14/21Team MemberRelationship SpecialtyStart DateEnd Date Penelope Casas [facility] [address] PCP - GeneralFamily Medicine10/04/20Team MemberRelationshipSpecialtyStart DateEnd Date Humaira Gaviria MD [address] [place] [place] [address] PCP - GeneralInternal Medicine3/8/19 Jonyn Wilcox MD [address] [place] [address] Primary Staff PhysicianCardiology07/16/18 [place] [address] [place] [address] PhysicianHematology/Oncology09/14/21 Davida Restrepo, RN [address] [place] [address] Specialty Care CoordinatorHematology/Oncology09/14/21Te MemberRelationship SpecialtyStart DateEnd Date Penelope Casas, [address] [place] [address] PCP - GeneralFamily Fbwalxsx47/3/22 Jonny Wilcox MD [address] [place] [address] Primary Staff PhysicianCardiology07/16/18 [place] [address] [place] [address] PhysicianHematology/Oncology09/14/21 Davida Restrepo, RN [address] [place] [address] Specialty Care CoordinatorHematology/Oncology09/14/21Te MemberRelationship SpecialtyStart DateEnd Date Penelope Casas DO [address] [place] [address] PCP - GeneralFamily Khkowbqc75/3/22 Jonny Wilcox MD [address] [place] [address] Primary Staff PhysicianCardiology07/16/18 [place] [address] [place] [address] PhysicianHematology/Oncology09/14/21 Davida Restrepo, RN [address] [place] [address] Specialty Care CoordinatorHematology/Oncology09/14/21Te MemberRelationship SpecialtyStart DateEnd Date Penelope Casas, DO [address] [place] [address] PCP - GeneralFamily Cixlwspz72/3/22 Jonny Wilcox MD [address] [place] [address] Primary Staff PhysicianCardiology07/16/18 [place] [address] [place] [address] PhysicianHematology/Oncology09/14/21 Davida Restrepo, RN [address] [place] [address] Specialty Care CoordinatorHematology/Oncology09/14/21Te MemberRelationship SpecialtyStart DateEnd Date Penelope Casas, DO [address] [place] [address] PCP - Generalmily Jdhackre33/3/22 Jonny Wilcox MD [address] [place] [address] Primary Staff PhysicianCardiology07/16/18 [place] [address] [place] [address] PhysicianHematology/Oncology09/14/21 Davida Restrepo, RN [address] [place] [address] Specialty Care CoordinatorHematology/Oncology09/14/21Te MemberRelationship SpecialtyStart DateEnd Counts Include [address] [facility] Penelope Casas, DO [address] [place] [address] PCP - GeneralFamily Biywcopa98/3/22 Jonny Wilcox MD [address] [place] [address] Primary Staff PhysicianCardiology07/16/18 [place] [address] [place] [address] PhysicianHematology/Oncology09/14/21 Davida Restrepo, RN [address] [place] [address] Specialty Care CoordinatorHematology/Oncology09/14/21Te MemberRelationship SpecialtyStart DateEnd Counts Include [address] [facility] Penelope Casas, DO [address] [place] [address] PCP - GeneralFamily Khwfidaz67/3/22 Jonny Wilcox MD [address] [place] [address] Primary Staff PhysicianCardiology07/16/18 [place] [address] [place] [address] PhysicianHematology/Oncology09/14/21 Davida Restrepo, RN [address] [place] [address] Specialty Care CoordinatorHematology/Oncology09/14/21Te MemberRelationship SpecialtyStart DateTexas [facility] Penelope Casas, DO [address] [place] [address] PCP - GeneralFamily Hylhnjtb77/3/22 Jonny Wilcox MD [address] [place] [address] Primary Staff PhysicianCardiology07/16/18 [place] [address] [place] [address] PhysicianHematology/Oncology09/14/21 Davida Restrepo, RN [address] [place] [address] Specialty Care CoordinatorHematology/Oncology09/14/21Te MemberRelationship SpecialtyStart DateEnd Date Penelope Casas, [address] [place] [address] PCP - GeneralFamily Fkurknhk81/3/22 Jonny Wilcox MD [address] [place] [address] Primary Staff PhysicianCardiology07/16/18 [place] [address] [place] [address] PhysicianHematology/Oncology09/14/21 Davida Restrepo, MARSHA [address] [place] [address] Specialty Care CoordinatorHematology/Oncology09/14/21Te MemberRelationship SpecialtyStart DateEnd Date Penelope Casas, DO [address] [place] [address] PCP - Generalmily Xqknlvds39/3/22 Jonny Wilcox MD [address] [place] [address] Primary Staff PhysicianCardiology07/16/18 [place] [address] [place] [address] PhysicianHematology/Oncology09/14/21 Davida Restrepo RN [address] [place], [place] [address] Specialty Care CoordinatorHematology/Oncology09/14/21Team MemberRelationship SpecialtyStart DateEnd Date Penelope Casas DO [address] [place] [address] PCP - Generalmily Xmanzgoi11/3/22 Jonny Wilcox MD [address] [place] [address] Primary Staff PhysicianCardiology07/16/18 [place] [address] [place] [address] PhysicianHematology/Oncology09/14/21 Davida Restrepo RN [address] [place] [address] Specialty Care CoordinatorHematology/Oncology09/14/21Te MemberRelationship SpecialtyStart DateEnd Date Penelope Casas DO [address] [place] [address] [facility] Vimxacoo72/3/22 Jonny Wilcox MD [address] [place] [address] Primary Staff PhysicianCardiology07/16/18 [place] [address] [place] [address] PhysicianHematology/Oncology09/14/21 Davida Restrepo RN [address] [place] [address] Specialty Care CoordinatorHematology/Oncology09/14/21Team MemberRelationship Specialtyart DateEnd Penelope Casas DO [address] [place] [address] PCP - GeneralFamily Oihdtmnc66/3/22 Jonny Wilcox MD [address] [place] [address] Primary Staff PhysicianCardiology07/16/18 [place] [address] [place] [address] PhysicianHematology/Oncology09/14/21 Davida Restrepo RN [address] [place] [address] Specialty Care CoordinatorHematology/Oncology09/14/21Te MemberRelationship SpecialtyStart DateEnd Date Penelope Casas DO [address] [place] [address] PCP - Generalmily Foghmewi67/3/22 Jonny Wilcox MD [address] [place] [address] Primary Staff PhysicianCardiology07/16/18 [place] [address] [place] [address] PhysicianHematology/Oncology09/14/21 Davida Restrepo RN [address] [place] [address] Specialty Care CoordinatorHematology/Oncology09/14/21Team MemberRelationship SpecialtyStart DateEnd Date Penelope Casas DO [address] [place] [place] [address] [facility] Fatfbngj07/3/22 Jonny Wilcox MD [address] [place] [address] Primary Staff PhysicianCardiology07/16/18 [place] [address] [place] [address] PhysicianHematology/Oncology09/14/21 Davida Restrepo, RN [address] [place] [address] Specialty Care CoordinatorHematology/Oncology09/14/21Team MemberRelationship SpecialtyStart DateEnd Date Penelope Casas DO [address] [facility] [place] [place] [address] PCP - [facility] Bkprzotk94/3/22 Jonny Wilcox MD [address] [place] [address] Primary Staff PhysicianCardiology07/16/18 [place] [address] [place] [address] PhysicianHematology/Oncology09/14/21 Davida Restrepo RN [address] [place], [place] [address] Specialty Care CoordinatorHematology/Oncology09/14/21Team MemberRelationship SpecialtyStart DateEnd Date Penelope Casas DO [address] [facility] [place] [address] PCP - Generalmily Eoosqoaw76/3/22 Jonny Wilcox MD [address] [place] [address] Primary Staff PhysicianCardiology07/16/18 [place] [address] [place] [address] PhysicianHematology/Oncology09/14/21 Davida Restrepo, RN [address] [place] [address] Specialty Care CoordinatorHematology/Oncology09/14/21Team MemberRelationship SpecialtyStart DateEnd Date Penelope Casas DO [address] [facility] [place] [address] PCP - Generalmily Jbxrlnzs53/3/22 Jonny Wilcox MD [address] [place] [address] Primary Staff PhysicianCardiology07/16/18 [place] [address] [place] [address] PhysicianHematology/Oncology09/14/21 Davida Restrepo, RN [address] [place] [address] Specialty Care CoordinatorHematology/Oncology09/14/21Team MemberRelationship SpecialtyStart DateEnd Date Penelope Casas DO [address] [facility] [address] PCP - GeneralFamily Benswzgy05/3/22 Jonny Wilcox MD [address] [place] [address] Primary Staff PhysicianCardiology07/16/18 [place] [address] [place] [address] PhysicianHematology/Oncology09/14/21 Davida Restrepo, MARSHA [address] [place] [address] Specialty Care CoordinatorHematology/Oncology09/14/21Team MemberRelationship SpecialtyStart DateEnd Date Penelope Casas DO [address] [facility] [place] [address] PCP - Generalmily Fifzvrla14/3/22 Jonny Wilcox MD [address] [place] [address] Primary Staff PhysicianCardiology07/16/18 [place] [address] [place] [address] PhysicianHematology/Oncology09/14/21 Davida Restrepo RN [address] [facility] [facility] [place] [address] Specialty Care CoordinatorHematology/Oncology09/14/21Team MemberRelationship SpecialtyStart DateEnd Date Penelope Casas DO [address] [place] [address] PCP - GeneralFamily Azrakpwy94/3/22 Jonny Wilcox MD [address] [facility] [facility] [place] [address] Primary Staff PhysicianCardiology07/16/18 [place] [address] [place] [address] PhysicianHematology/Oncology09/14/21 Davida Restrepo RN [address] [facility] [facility] [place] [address] Specialty Care CoordinatorHematology/Oncology09/14/21Team MemberRelationship SpecialtyStart DateEnd Date Penelope Casas DO [address] [place] [address] PCP - GeneralFamily Iwcqeyuc73/3/22 Jonny Wilcox MD [address] [place] [address] Primary Staff PhysicianCardiology07/16/18 [place] [address] [place] [address] PhysicianHematology/Oncology09/14/21 Davida Restrepo RN [address] [facility] [place] [address] Specialty Care CoordinatorHematology/Oncology09/14/21Te MemberRelationship SpecialtyStart DateEnd Date Penelope Casas DO [address] [facility] [place] [address] PCP - GeneralFamily Jyzrilbe62/3/22 Jonny Wilcox MD [address] [place] [address] Primary Staff PhysicianCardiology07/16/18 [place] [address] [place] [address] PhysicianHematology/Oncology09/14/21 Davida Restrepo, MARSHA [address] [place] [address] Specialty Care CoordinatorHematology/Oncology09/14/21Team MemberRelationship SpecialtyStart DateEnd Date Penelope Casas DO [address] [facility] [place] [address] [facility] - [facility] Oscaxutw46/3/22 Jonny Wilcox MD [address] [place] [address] Primary Staff PhysicianCardiology07/16/18 [place] [address] [place] [address] PhysicianHematology/Oncology09/14/21 Davida Restrepo RN [address] [place] [address] Specialty Care CoordinatorHematology/Oncology09/14/21Team MemberRelationship SpecialtyStart DateEnd Date Penelope Casas DO [address] [facility] [place] [place] [address] PCP - GeneralFamily Libbnzca93/3/22 Jonny Wilcox MD [address] [place] [address] Primary Staff PhysicianCardiology07/16/18 [place] [address] [place] [address] PhysicianHematology/Oncology09/14/21 Davida Restrepo, RN [address] [place] [address] Specialty Care CoordinatorHematology/Oncology09/14/21Team MemberRelationship SpecialtyStart DateEnd Date Penelope Casas MD [address] [place] [address] PCP - GeneralFamily Medicine11/07/23Team MemberRelationshipSpecialtyStart DateEnd Date Penelope Casas MD [address] [place] [address] PCP - GeneralFamily Medicine11/07/23Team MemberRelationshipSpecialtyStart DateEnd Date Penelope Casas MD [address] [place] [address] PCP - Generalmily Medicine11/07/23Team MemberRelationshipSpecialtyStart DateEnd Date Penelope Casas MD [address] [place] [address] PCP - Generalmily Medicine11/07/23Team MemberRelationshipSpecialtyStart DateEnd Date Penelope Casas MD [address] [place] [address] PCP - Generalmily Medicine11/07/23 Team Status: Inactive Member Role Status Dates Wilton Herrmann DO Attending Provider Active Start : May 10, 2024 End: May 10, 2024Team MemberRelationshipSpecialtyStart DateEnd Date Penelope Casas DO [address] [place] [address] PCP - GeneralFamily Rdhjicib11/3/22 Jonny Wilcox MD [address] [place], [place] [id number] Primary Staff PhysicianCardiology07/16/18 [place] [address] [place], [place] [id number] PhysicianHematology/Oncology09/14/21 Davida Restrepo RN [address] [place], [place] [id number] Specialty Care CoordinatorHematology/Oncology09/14/21Team MemberRelationship SpecialtyStart DateEnd Date Penelope Casas MD [address] [place] [id number] PCP - Generalmily Medicine11/07/23Team MemberRelationshipSpecialtyStart DateEnd Date Penelope Casas MD [address] [place] [address] PCP - Generalmily Medicine11/07/23Team MemberRelationshipSpecialtyStart DateEnd Date Penelope Casas MD [address] [place] [address] PCP - [facility] Hospitally [facility]11/07/23Team MemberRelationshipSpecialtyStart DateEnd Date Penelope Casas MD [address] [place] [address] PCP - GeneralFamily Medicine11/07/23Team MemberRelationshipSpecialtyStart DateEnd Date Penelope Casas DO [address] [address] PCP - GeneralFamily Iybhpzow33/3/22 Jonny Wilcox MD [address] [place] [address] Primary Staff PhysicianCardiology07/16/18 [place] [address] [place] [address] PhysicianHematology/Oncology09/14/21 Davida Restrepo, MARSHA [address] [place] [address] Specialty Care CoordinatorHematology/Oncology09/14/21Team MemberRelationship SpecialtyStart DateEnd Date Penelope Casas MD [address] [facility] [place] [address] PCP - GeneralFamily Medicine11/07/23Team MemberRelationshipSpecialtyStart DateEnd Date Penelope Casas MD [address] [facility] [place] [address] PCP - GeneralFamily Medicine11/07/23Team MemberRelationshipSpecialtyStart DateEnd Date Penelope Casas DO PCP - GeneralFamily Medicine07/07/19Team MemberRelationshipSpecialtyStart DateEnd Date Penelope Casas DO PCP - GeneralFamily Medicine07/07/19Team MemberRelationshipSpecialtyStart DateEnd Date Penelope Casas MD [address] [place] [address] PCP - GeneralFamily Medicine11/07/23Team MemberRelationshipSpecialtyStart DateEnd Date Penelope Casas DO PCP - GeneralFamily Medicine07/07/19Team MemberRelationshipSpecialtyStart DateEnd Date Penelope Casas DO PCP - GeneralFamily Medicine07/07/19Team MemberRelationshipSpecialtyStart DateEnd Date Penelope Casas DO [address] [place] [address] PCP - GeneralFamily Kyyapitm42/3/22 Jonny Wilcox MD [address] [place] [address] Primary Staff PhysicianCardiology07/16/18 [place] [address] [place] [address] PhysicianHematology/Oncology09/14/21 Davida Restrepo, MARSHA [address] [place] [address] Specialty Care CoordinatorHematology/Oncology09/14/21Team MemberRelationship SpecialtyStart DateEnd Date Penelope Casas DO PCP - GeneralFamily Medicine07/07/19Team MemberRelationshipSpecialtyStart DateEnd Date Penelope Casas MD [address] [place] [address] PCP - GeneralFamily Medicine11/07/23Team MemberRelationshipSpecialtyStart DateEnd Date Penelope Casas MD [address] [place] [address] PCP - GeneralFamily Medicine11/07/23Team MemberRelationshipSpecialtyStart DateEnd Date Penelope Casas DO PCP - GeneralFamily Medicine07/07/19Team MemberRelationshipSpecialtyStart DateEnd Date Penelope Casas DO PCP - GeneralFamily Medicine07/07/19Team MemberRelationshipSpecialtyStart DateEnd Date Penelope Casas MD [address] [place] [address] PCP - GeneralFamily Medicine11/07/23Team MemberRelationshipSpecialtyStart DateEnd Date Penelope Casas MD [address] [facility] [place] [address] PCP - GeneralFamily Medicine11/07/23Team MemberRelationshipSpecialtyStart DateEnd Date Penelope Casas DO PCP - GeneralFamily Medicine07/07/19Team MemberRelationshipSpecialtyStart DateEnd Date Penelope Casas DO [address] [place] [address] PCP - GeneralFamily Ycdarhrl98/3/22 Jonny Wilcox MD [address] [place] [address] Primary Staff PhysicianCardiology07/16/18 [place] [address] [place], [place] [address] PhysicianHematology/Oncology09/14/21 Davida Restrepo, MARSHA [address] [place] [address] Specialty Care CoordinatorHematology/Oncology09/14/21Team MemberRelationship SpecialtyStart DateEnd Date Penelope Casas DO PCP - GeneralFamily Medicine07/07/19Team MemberRelationshipSpecialtyStart DateEnd Date Penelope Casas DO PCP - GeneralFamily Medicine07/07/19Team MemberRelationshipSpecialtyStart DateEnd Date Penelope Casas DO PCP - GeneralFamily Medicine07/07/19Team MemberRelationshipSpecialtyStart DateEnd Date Penelope Casas DO PCP - GeneralFamily Medicine07/07/19Team MemberRelationshipSpecialtyStart DateEnd Date Penelope Casas DO PCP - GeneralFamily Medicine07/07/19Team MemberRelationshipSpecialtyStart DateEnd Date Penelope Casas MD [address] [place] [address] PCP - GeneralFamily Medicine11/07/23Team MemberRelationshipSpecialtyStart DateEnd Date Penelope Casas DO PCP - GeneralFamily Medicine07/07/19Team MemberRelationshipSpecialtyStart DateEnd Date Penelope Casas DO PCP - GeneralFamily Medicine07/07/19Team MemberRelationshipSpecialtyStart DateEnd Date Penelope Casas DO PCP - GeneralFamily Medicine07/07/19Team MemberRelationshipSpecialtyStart DateEnd Date Penelope Casas MD [address] [place] [address] PCP - GeneralFamily Medicine11/07/23Team MemberRelationshipSpecialtyStart DateEnd Date Penelope Casas DO PCP - GeneralFamily Medicine07/07/19Team MemberRelationshipSpecialtyStart DateEnd Date Penelope Casas DO PCP - GeneralFamily Medicine07/07/19Team MemberRelationshipSpecialtyStart DateEnd Date Penelope Casas MD [address] [place] [address] PCP - GeneralFamily Medicine11/07/23Team MemberRelationshipSpecialtyStart DateEnd Date Penelope Casas MD [address] [place] [address] PCP - Generalmily Medicine11/07/23Team MemberRelationshipSpecialtyStart DateEnd Date Penelope Casas MD [address] [place] [address] PCP - Generalmily Medicine11/07/23Team MemberRelationshipSpecialtyStart DateEnd Date Penelope Casas MD [address] [place] [address] PCP - Generalmily Medicine11/07/23Team MemberRelationshipSpecialtyStart DateEnd Date Penelope Casas MD [address] [place] [address] PCP - Generalmily Medicine11/07/23Team MemberRelationshipSpecialtyStart DateEnd Date Penelope Casas MD [address] [place] [address] PCP - Generalmily Medicine11/07/23Team MemberRelationshipSpecialtyStart DateEnd Date Penelope Casas MD [address] [place] [address] PCP - Generalmily Medicine11/07/23Team MemberRelationshipSpecialtyStart DateEnd Date Penelope Casas MD [address] [facility] [place] [address] PCP - GeneralFamily Medicine11/07/23 Reason for Visit (unrecogniz ed section and content) ReasonCommentsFuture AppointmentReasonCommentsPatient QuestionReasonComments Medication QuestionReasonOnset DateCommentsRefill Sbxoato53/13/2022ReasonOnset DateCommentsRefill Xhmsilv68/02/2022ReasonCommentsHypercoagulable state6 month follow upReasonCommentsPrimary hypercoagulable state8 week follow upReason CommentsResultsReasonCommentsAppointmentPatient QuestionMedication Question OrdersSpecialtyDiagnoses / ProceduresReferred By ContactReferred To Contact Diagnoses Iron deficiency anemia secondary to blood loss (chronic) Iron deficiency anemia of Procedures INJECTION, FERRIC DERISOMALTOSE, 10 MG Kristofer Calix MD [address] [place] [address] [place] [address] Del[address] Treat Stew [address] [place] [address] Referral IDStatusKelseyasonCanajoharie DateExpiration DateVisits RequestedVisits [id number]/7/20221/[id number]j Request SpecialtyDiagnoses / ProceduresReferred By ContactReferred To Contact Diagnoses Iron deficiency anemia secondary to blood loss (chronic) Iron deficiency anemia of Procedures IRON SUCROSE INJECTION PER 1 MG Kristofer Calix MD [address] [place] [address] [place] [address] Delgado Treat Stew [address] [place] [address] Referral IDStatusKelseyasonStart DateExpiration DateVisits RequestedVisits [id number]/28/20221/1/[id number] DateCommentsRefill Qffqfoi2007/03/2022ReasonCommentsAnemiaFollow upReasonCommentsOrdersReason CommentsEstablished PatientReasonCommentsAppointmentReasonCommentsLab Orders ReasonCommentsPrimary hypercoagulable state (HCC)Follow upReasonComments Appointment RescheduledSpecialtyDiagnoses / ProceduresReferred By Contact Referred To Contact Diagnoses Iron deficiency anemia of Iron deficiency anemia secondary to blood loss (chronic) Procedures IRON SUCROSE INJECTION PER 1 MG Kristofer Calix MD [address] [place] [address] [place] [address] [address] [place] [address] Referral IDStatusReasonStart DateExpiration DateVisits RequestedVisits [id number]/8/20241/5/366578SodkcaMabgc DateCommentsRefill Hwmrquq3211/29/2023easonCommentsAmenorrheaReasonOnset DateCommentsRefill Request 4ReasonCommentsRoutine VisitReasonCommentsPatient UpdateReason CommentsAnemiafollowupReasonCommentsfollow up miscarriageReasonCommentsVaginal BleedingDizzinessReasonCommentsIrregular CyclesReasonOnset DateCommentsRefill Ilvcmjm9107/25/2024ReasonOnset DateCommentsRefill Kvdpirc6510/20/2024ReasonOnset DateCommentsRefill Zhhvasu7110/29/2024ReasonCommentsGestational DiabetesSpecialty Diagnoses / ProceduresReferred By ContactReferred To ContactMaternal and Medicine Diagnoses Gestational diabetes mellitus (GDM), antepartum, gestational diabetes method of control unspecified Wilton Herrmann, DO [address] [place] [address] [place] [address] Phone: tel: fax: Maternal- Medicine at [facility] [address] [place] [address] Phone: tel: fax: Referral IDStatusReasonStart DateExpiration DateVisits RequestedVisits [id number] Review Specialty Services Required [id number]tjqjd stateAnemia8 week follow up ReasonCommentsMFM consultReasonCommentsRoutine VisitReasonComments [...] BE BASED ON THE PRIMARY CLINICAL RECORDS. [facility]. provides no warranty or guarantee of the accuracy or completeness of information in this document.
[2025-04-06 18:20] VITALS: BP 114/56; PULSE 83
== END 2025-04-06 19:08 | disposition home or self-care (01) ==
LOC: FBCO 18:06 → FBC 18:08
PROVIDERS: Visit Provider Obstetrics & Gynecology
DX: O26.893 Other specified pregnancy related conditions, third trimester (principal); Z3A.36 36 weeks gestation of pregnancy
CPT/HCPCS: 59025

== ENCOUNTER 2025-04-08 19:57 | Outpatient (REF) | payer MEDICAID, SELFPAY ==
--- OUTSIDE RECORDS SUMMARY | 2025-03-25 11:10 | XMS_ITS | Encounter Summary ---
Author Organization [facility] Address [address] [facility] [[email or web address] [address] Care Team Providers Care Fabric Designer Name Role Phone Evans Casas MD Primary Care Provider [phone] Reason for Visit * ReasonCommentsRoutine Visit Encounter Details DateTypeDepartmentCare Team (Latest Contact Info)Afvplwykhzz45/26/2025 11:10 AM ESTRoutine [facility] [address] [place] [phone] Wilton Herrmann DO [address] [facility] [address] [place] [address] Third trimester ([facility]); 34 weeks gestation of ([facility]); Anemia complicating childbirth ([facility]); Anticoagulant long-term use; Antiphospholipid antibody positive; Antiphospholipid antibody syndrome ([facility]); Thyroid disease Social History Tobacco UseTypesPacks/DayYears UsedDateSmoking Tobacco: NeverSmokeless Tobacco: NeverAlcohol UseStandard Drinks/WeekCommentsNever0 (1 standard drink = 0.6 oz pure alcohol)PHQ-2AnswerDate RecordedPatient Health Questionnaire-2 Score0 03/03/2025Estimated Date of ArxmdmmoZlaquzsaMin59/05/2026ased on last menstrual period of 07/28/2024Sex and Gender InformationValueDate RecordedSex Assigned at BirthNot on fileLegal XpuUlieai72/15/2023 11:19 PM EDTGender IdentityNot on fileSexual OrientationNot on filedocumented as of this encounter Last Filed Vital Signs Vital SignReadingTime TakenCommentsBlood Rmtdypde328/7211/ 11:25 AM EST Pulse--Temperature--Respiratory Rate--Oxygen Saturation--Inhaled Oxygen Concentration--Fgtvhb19.9 kg (211 lb 8 oz)03/25/2025 11:25 AM ESTHeight--Body Mass Index34.1407 1:48 PM EDTdocumented in this encounter Progress Notes * Pamela Walter LPN - 03/25/2025 11:10 AM EST Reason for Appointment: Patient ID: [...] Diagnosis Date Noted 32 weeks gestation of ([facility]) 11/28/2019 Abdominal pain 06/12/2023 Acute bronchitis due to infection 06/12/2023 Acute on chronic vesicular eczema of hands and feet 11/15/2023 Anemia complicating childbirth ([facility]) 01/16/2020 Anticoagulant long-term use 02/22/2020 Antiphospholipid antibody positive 09/10/2017 Antiphospholipid antibody syndrome (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) 01/08/2020 Coagulation defect, unspecified ([facility]) 02/05/2019 Cold intolerance 11/15/2023 Deficiency of other specified B group vitamins 05/16/2019 Deviated septum 11/15/2023 Dizziness and giddiness 02/05/2019 Dry mouth 11/15/2023 Dysfunction of eustachian tube 06/12/2023 Dyspnea 06/12/2023 Elevated blood pressure reading 11/15/2023 Encounter for supervision of normal , unspecified, first trimester ([facility]) 05/29/2019 Environmental allergies 11/15/2023 Fatigue 12/29/2016 First degree perineal laceration during delivery ([facility]) 01/16/2020 Frequency of micturition 02/19/2019 Genitourinary symptoms 08/19/2021 Gestational diabetes mellitus (GDM), antepartum ([facility]) 01/26/2022 H/O: hypothyroidism 11/15/2023 Hematochezia [...] anemia 01/16/2020 Irregular uterine bleeding 11/15/2023 problem ([facility]) 06/12/2023 Less than 8 weeks gestation of ([facility]) 06/05/2019 intermodal customer service (current) use of 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/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 02/05/2019 Migraine without aura and without status migrainosus, not intractable 09/12/2017 Morbid obesity ([facility]) 11/15/2023 Muscle fasciculation 08/19/2021 Nasal polyps 11/15/2023 Non-smoker 11/15/2023 NEETA (obstructive sleep apnea) 11/15/2023 Other acute postprocedural pain 02/03/2019 Other general symptoms and signs 10/28/2019 Other immediate hemorrhage ([facility]) 01/16/2020 Other specified noninflammatory disorders of vagina 02/21/2019 Pain in joint 12/29/2016 Palpitations 08/26/2019 Paresthesia of bilateral legs 11/15/2023 Pelvic and perineal pain 02/01/2019 Personal history of urinary (tract) infections 01/16/2020 Pre-diabetes 11/15/2023 Primary hypercoagulable state ([facility]) 08/01/2022 Pruritus, unspecified 01/02/2020 Psychogenic hyperventilation 06/12/2023 Raised antibody titer 09/25/2017 Right lower quadrant pain 11/15/2023 Right otitis externa 11/15/2023 Salivary gland swelling 11/15/2023 Single live ([facility]) 01/15/2020 Snoring 11/15/2023 Speech and [...] drainage of cyst WISDOM TOOTH EXTRACTION 2007 [place] teeth REVIEW OF SYSTEMS Review of Systems: [...] nursing note reviewed. Exam conducted with a coremaking machine operator present. Vitals: Estimated body mass index is 34.14 kg/m?? as calculated from the following: Height as of 11/19/23: 5' 6 . Weight as of this encounter: 211 lb 8 oz. BP: 118/72 Patient's last menstrual period was 07/28/2024. Assessment/Plan ICD-10-CM 1. Third trimester ([facility]) Z34.93 POCT urinalysis dipstick manually resulted 2. 34 weeks gestation of ([facility]) Z3A.34 3. Anemia complicating childbirth ([facility]) O99.02 4. Anticoagulant long-term use Z79.01 5. Antiphospholipid antibody positive R76.0 6. Antiphospholipid antibody syndrome ([facility]) D68.61 7. Thyroid disease E07.9 Assessment/Plan Return OB: Patient presents today for a routine obstetrics appointment. Patient is currently 34w2d . Patient states she is doing well [...] by Pamela Walter LPN on behalf of: Wilton Herrmann DO documented in this encounter Plan of Treatment DateTypeDepartmentCare Team (Latest Contact Info)Tjlqrrtpnno90/17/2025 1:50 PM ESTRoutine [facility] [address] [place] [address] Wilton Herrmann DO [address] [place], [place] [phone] documented as of this encounter Procedures Procedure NamePriorityDate/TimeAssociated DiagnosisCommentsPOCT URINALYSIS CRRFUEOPPmdhvcm38/ 11:31 AM EST Third trimester ([facility]) documented in this encounter Results * POCT urinalysis dipstick manually resulted (03/25/2025 11:31 AM EST)Component ValueRef RangeTest MethodAnalysis TimePerformed AtPathologist SignatureColor, UAYellowClarity, UAClearGlucose, UANegativeNegative - 2000(110) ++++ mg/dL Bilirubin, UANegativeNegative - 4(70) +++ mg/dLKetones, UANegativeNegative - 160(16) ++++ mg/dLSpec Grav, UA1.0051 - 1.03Blood, UANegativeNegative - 50 Max/mcLpH, UA6.05 - 9Protein, UANegativeNegative - 2000(20) ++++ mg/dL Urobilinogen, UA0.20.2 - 12 mg/dLLeukocytes, UANegativeNegative - 500+++ John/mcLNitrite, UANegativeNegative - PositiveSpecimen (Source)Anatomical Location / LateralityCollection Method / VolumeCollection TimeReceived Time Urine03/25/2025 11:31 AM EST Narrative Authorizing ProviderResult TypeResult StatusCorey Montez DOPOINT OF CARE TEST ENTER/EDIT ORDERABLESFinal Result documented in this encounter Visit Diagnoses Diagnosis Third trimester ([facility]) state, incidental 34 weeks gestation of ([facility]) Anemia complicating childbirth ([facility]) Anticoagulant long-term use Encounter for long-term (current) use of anticoagulants Antiphospholipid antibody positive Other and unspecified nonspecific immunological findings Antiphospholipid antibody syndrome ([facility]) Primary hypercoagulable state Thyroid disease Unspecified disorder of thyroid documented in this encounter Care Teams Team MemberRelationshipSpecialtyStart DateEnd Date Evans Casas MD [address] [address] PCP - GeneralFamily Medicine11/07/23documented as of this encounter
--- OUTSIDE RECORDS SUMMARY | 2025-04-03 09:40 | XMS_ITS | Encounter Summary ---
Author Organization [facility] Address [address] [place] [address] Care Team Providers Care Photographic Editor Name Role Phone Jonny Wilcox MD Unavailable [phone] Cosmo Elliott MD Unavailable [phone] Davida Restrepo RN Unavailable [phone] Evans Casas DO Primary Care Provider [phone] Source Comments In the event this information is protected by the Federal Confidentiality of Alcohol and Drug AbusePatient Records regulations: The Federal rules restrict any use of the information to criminally investigate or prosecute any alcohol or drug abuse patient.[facility] Reason for Visit * ReasonCommentsChemotherapy Treatment Encounter Details DateTypeDepartmentCare Team (Latest Contact Info)Uisvetclugp03/05/2025 9:40 AM ESTVisit (SP) Office Hematology/Oncology [address] [place] [address] [place] [address] Salvador Dos Santos MD [address] [place] [address] [place] [address] Antiphospholipid antibody positive (Primary Dx); Iron deficiency anemia secondary to blood loss (chronic); Primary hypercoagulable state (HCC); CVA, old, speech/language deficit; Gestational diabetes mellitus (GDM) in third trimester, gestational diabetes method of control unspecified (HCC); History of hemorrhage; Other vitamin B12 deficiency anemia; Diet controlled gestational diabetes mellitus (GDM) in third trimester (HCC); Antiphospholipid syndrome (HCC); 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; History of CVA (cerebrovascular accident) without residual deficits; Encounter for supervision of high risk in third trimester, antepartum (HCC) Social History Tobacco UseTypesPacks/DayYears UsedDateSmoking Tobacco: NeverSmokeless Tobacco: NeverAlcohol UseStandard Drinks/WeekCommentsNo0 (1 standard drink = 0.6 oz pure alcohol)PHQ-2AnswerDate RecordedPHQ-2 [id number] Deprivation Index AnswerDate RecordedNational Score (1-100), lower number is lower risk58 09/28/2022State Score (1-10), lower number is lower [id number] from: https://www.neighborhoodatlas.[facility].edu/. 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 - The [...] supplement recently. You should continue taking regular lyxgn-bqf-qttfnj B12. - Because you have the MTHFR [...] not included. NAME: Sanna Bone CLINIC NO.: [id number] DATE OF SERVICE: April 03, 2025 (Levon) [...] later in 2018. These were found in [place], [place]. 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 Primary hypercoagulable state (HCC) (D68.59) 4. 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 She has gestational diabetes managed with metformin [...] Osorio soon. When she hada stroke in [place], she had symptoms up to a month before: uncontrollable headache, BP was elevated, knee stiffness, and blurry vision. Right facial drooping and difficulty speaking [facility] She continues to take vitamins. Updated [...] and stayed [place]ox Hgb 13.1 [place] [facility] [place] [...] age 69. Both lived in [facility] but she was adopted. She was not able to see ID in October and will be seeing Dr. Baugh next week. Also will have her see Dr. Hamlin for her clotting disorder and make any other recommendations to optimize her treatment. Updated Visit, October 08, 2020: Telephone only Received call from pt stating she was seen in [facility] [place] for numbness in her chest, throat, and extremities, and sob which has been worsening over the last week. We arranged a telephone visit for her franci questions with me. Sanna Bone is a 34 year old female seen for Hypercoagulable state and recent concerns and symptoms that required her to be seen at [facility] [place]. She went to the ER with Gradual worsening of breathing after progressive tingling of fingers and legs. She currently remains very fatigued even though she is sleeping well. Now recalls that before her stroke she remembers having a bull's eye rash and was seen with severe headaches in [place], [place] - was found to have a [...] a root canal and was sent [place] [facility] [place] [...] back to January 2016 in [facility] where she had persisting headaches and slurred speech followed by lower extremity weakness. This took a few months to resolve and she is back to her normal state of being but some point in time during her her next she was seen by Dr. Pascual Hyde in [place] as well and was found to have [...] trimester, gestational diabetes method of control unspecified ([facility]) (Z87.59) History of hemorrhage (D51.8) Other vitamin B12 deficiency anemia Plan: VITAMIN B12 (O24.410) Diet controlled gestational diabetes mellitus (GDM) in third trimester ([facility]) (D68.61) Antiphospholipid syndrome (HCC) (Z79.01) senior care (current) use of anticoagulants (Z86.73) History of [...] which included preparing to see the patient, jvlq-gy-kmah patient care, completing clinical documentation, performing a medically appropriate examination, counseling and educating the patient/family/caregiver, ordering medications, tests, or procedures, independently interpreting results (not separately reported), communicating results to the patient/family/caregiver, and care coordination (not separately reported) Salvador Dos Santos MD, CPE Hematology and Oncology Services Provided at: [facility], [place], [place] . CC: MD Wilton Day, [address] [place] [address] Humaira Gaviria MD [address] [facility] [address] MD Cosmo Kingston MD Michael [place], MD documented in this encounter Plan of Treatment DateTypeDepartmentCare Team (Latest Contact Info)Crepqwwwllp85/09/2026 9:30 AM ESTOffice Visit [facility] [address] [address] lab in 5 weeks05/13/2025 5:00 PM [facility] Hematology/Oncology [address] [address] Salvador Dos Santos MD [address] [place] [address] [place] [address] VV for lab resultsNameTypePriorityAssociated DiagnosesOrder ScheduleVITAMIN B12 [...] loss (chronic) Expected: 05/08/2025 (Approximate), Expires: 04/03/2026VITAMIN X03PyfLizefvo Iron deficiency anemia secondary to blood loss [...] (HCC) Antiphospholipid syndrome (HCC) Primary hypercoagulable state senior care (current) use of anticoagulants Long-term (current) use of anticoagulants History of CVA (cerebrovascular accident) without residual deficits Transient ischemic attack (TIA), and cerebral infarction without residual deficits Encounter for supervision of high risk in third trimester, antepartum (HCC) documented in this encounter Care Teams Team MemberRelationshipSpecialtyStart DateEnd Date Evans Casas DO [address] [place] [address] PCP - GeneralFamily Rlaullrs81/3/22 Jonny Wilcox MD [address] [place] [address] Primary Staff PhysicianCardiology07/16/18 [place] [address] [place] [address] PhysicianHematology/Oncology09/14/21 Davida Restrepo, RN [address] [place] [id number] Specialty Care CoordinatorHematology/Oncology09/14/21documented as of this encounter
--- OUTSIDE RECORDS SUMMARY | 2025-04-07 13:30 | XMS_ITS | Encounter Summary ---
Author Organization [facility] tem Address [id number] [address] [place] [address] Care Team Providers Care Professor Of Environmental Science Name Role Phone Evans Casas DO Primary Care Provider [phone] Encounter Details DateTypeDepartmentCare Team (Latest Contact Info)Qdjrcjdquth86/09/2025 1:30 PM ESTTelemedicine Maternal- Medicine at [facility] [address] [place] [phone] Davida Smith PA-C [address] [address] Gestational diabetes mellitus (GDM) in third trimester controlled on oral hypoglycemic drug (Primary Dx) Social History Tobacco UseTypesPacks/DayYears UsedDateSmoking Tobacco: NeverSmokeless Tobacco: NeverAlcohol UseStandard Drinks/WeekCommentsNot Currently0 (1 standard drink = 0.6 oz pure alcohol)ChildcareAnswerDate QlbtkbsnUsyxjamqpOvqqrra95/31/2019 EmploymentAnswerDate VqixabonUxsdhafvkxTjuqnlm25/31/2019Hunger ScreeningAnswer Date RecordedWithin the past 12 months we worried whether our food would run out before we got money to buy more.Never True01/01/2025Within the past 12 months the food we bought just didn't last and we didn't have money to get more.Never True01/01/2025Purpose - LifeAnswerDate RecordedPurpose and direction in life Cfdbavq76/11/2021Estimated Date of QxhxrfrzYfcgfghzMsc08/05/2026ased on last menstrual period of 07/28/2024Sex and Gender InformationValueDate Recorded Sex Assigned at BirthNot on fileLegal GzoPjlvjy00/31/2019 12:25 PM EDTGender IdentityNot on fileSexual OrientationNot on filedocumented as of this encounter Progress Notes * Davida Smith PA-C - 04/07/2025 1:30 PM EST Maternal- Medicine Consultation VIDEO Patient is present at home , provider present at [facility] HISTORY OF PRESENT ILLNESS: Sanna Bone is a 39 y.o. female at 36w1d due on Estimated Date of Delivery: 05/04/25 complicated by GDMA2, antiphospholipid syndrome with h/o CVA, hypothyroidism, h/o 17w loss, h/o electrolyte abnormalities Patient is feeling well today. Having intermittent contractions. She denies vaginal bleeding, leaking fluid. She appreciates movement. Patient denies headache, visual symptoms, right upper abdominal pain, SOB, chest pain. Has noticed increase in swelling in feet and some in face. BP was normal at NST yesterday. Denies any pain/redness in LE's BG log review: F: 87-96 All post prandials under 140 Reviewed grams carbs eating - usually only eats yogurt 9g for breakfast, 40g for lunch, and 30-40g for dinner. Do not recommend going under recommend grams carbs Denies any values <60 day or night Started metformin 1000mg qhs 12/14 LMP 07/28/2024 PAST [...] and vaginaldischarge PHYSICAL EXAMINATION: Gen: NAD DISCUSSION Glucose goals in : Fasting 60 - 95: Mean fasting glucose values are important in managing diabetes in women because they provide overall glycemic estimate, and are predictive of increased fat mass in the women???s offspring. Increased fat mass has been shown [...] modifications. PLAN - Current blood glucose control: normal to borderline fastings - Medication: - Metformin 500mg qa, 1000mg qpm - continue - previously declined insulin - Labs - A1c: 5.9 on 10/06/24 [...] so she can have them done at [place] - Anatomy survey with MFM -followsup scheduled 02/05 - growth ultrasounds every 4 weeks after 28 weeks - states had growth done at 33w, EFW was 5lbs , or at 50-60th%ile - Recommend the following for testing, which can be done with primary OB: - weekly NST and DVP at 28 week, increase NST to twice weekly at 32 weeks through primary OB office - Delivery recommendations : - recommend delivery at 39 weeks - Discuss delivery if estimated weight is >4500g - ok to take metformin evening prior to delivery. Do not need AM metformin dose morning of delivery - For lovenox, regardless of MOD, take last dose evening prior to CS or IOL. Do not take AM dose morning of delivery. Restart lovenox 40mg once daily 24hrs after neuraxial anesthesia, continue lovenox 40mg once daily. Once patient done , plan to transition anticoagulation with film library clerk. Confirmed / discussed this plan with Dr Waggoner - discontinue metformin. To have 2 hours [...] provided patient with their number to call previously. Patient never got scheduled - s/p rheumatology consult - confirmed dx of APS, SLE dx unclear - has had neurology follow up No further follow up with MFM indicated movement, labor, and preeclampsia precautions reviewed thoroughly I asked her to keep sending values to us weekly by e-mail to: or by fax to: [phone] Davida Smith PA-C Maternal- Medicine Office phone: [phone] Davida Smith PA-C 04/07/25 4124 documented in this encounter Plan of Treatment Not on file documented as of this encounter Visit Diagnoses Diagnosis Gestational diabetes mellitus (GDM) in third trimester controlled on oral hypoglycemic drug- Primary documented in this encounter Care Teams Team MemberRelationshipSpecialtyStart DateEnd Date Evans Casas DO PCP - GeneralFamily Medicine07/07/19documented as of this encounter
--- OUTSIDE RECORDS SUMMARY | 2025-04-08 13:40 | XMS_ITS | Encounter Summary ---
Author Organization [facility] Address [address] [place] [address] Care Team Providers Care Terminal Worker Name Role Phone Evans Casas MD Primary Care Provider [phone] Reason for Visit * ReasonCommentsRoutine Visit Encounter Details DateTypeDepartmentCare Team (Latest Contact Info)Xvrmkrwvckh92/10/2025 1:40 PM ESTRoutine [facility] [address] [place] [phone] Wilton Herrmann DO [address] [place], [place] [phone] 36 weeks gestation of (HHS-HCC); Third trimester ([facility]-HCC); Anemia complicating childbirth ([facility]); Anticoagulant long-term use; Antiphospholipid antibody positive; Antiphospholipid antibody syndrome ([facility]); Thyroid disease Social History Tobacco UseTypesPacks/DayYears UsedDateSmoking Tobacco: NeverSmokeless Tobacco: NeverAlcohol UseStandard Drinks/WeekCommentsNever0 (1 standard drink = 0.6 oz pure alcohol)PHQ-2AnswerDate RecordedPatient Health Questionnaire-2 Score0 03/03/2025Estimated Date of GoqypnicQefttcvjIky86/05/2026ased on last menstrual period of 07/28/2024Sex and Gender InformationValueDate RecordedSex Assigned at BirthNot on fileLegal EryXiigyo84/15/2023 11:19 PM EDTGender IdentityNot on fileSexual OrientationNot on filedocumented as of this encounter Last Filed Vital Signs Vital SignReadingTime TakenCommentsBlood Totqoelr991/7812 2:05 PM EST Pulse--Temperature--Respiratory Rate--Oxygen Saturation--Inhaled Oxygen Concentration--Hmyahm72.7 kg (211 lb)04/08/2025 2:05 PM ESTHeight--Body Mass [...] Diagnosis Date Noted 32 weeks gestation of ([facility]) 11/28/2019 Abdominal pain 06/12/2023 Acute bronchitis due to infection 06/12/2023 Acute on chronic vesicular eczema of hands and feet 11/15/2023 Anemia complicating childbirth ([facility]) 01/16/2020 Anticoagulant long-term use 02/22/2020 Antiphospholipid antibody positive 09/10/2017 Antiphospholipid antibody syndrome ([facility]) 07/07/2019 Anxiety 06/12/2023 Blood pressure elevated without history of HTN 11/15/2023 BMI 37.0-37.9, adult 11/15/2023 Cerebral infarction, unspecified ([facility]) 05/16/2019 Cerebrovascular accident (CVA) due to stenosis of middle cerebral artery ([facility]) 02/22/2020 Cervicalgia 02/05/2019 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 ([facility]) 01/08/2020 Coagulation defect, unspecified ([facility]) 02/05/2019 Cold intolerance 11/15/2023 Deficiency of other specified B group vitamins 05/16/2019 Deviated septum 11/15/2023 Dizziness and giddiness 02/05/2019 Dry mouth 11/15/2023 Dysfunction of eustachian tube 06/12/2023 Dyspnea 06/12/2023 Elevated blood pressure reading 11/15/2023 Encounter for supervision of normal , unspecified, first trimester ([facility]) 05/29/2019 Environmental allergies 11/15/2023 Fatigue 12/29/2016 First degree perineal laceration during delivery ([facility]) 01/16/2020 Frequency of micturition 02/19/2019 Genitourinary symptoms 08/19/2021 Gestational diabetes mellitus (GDM), antepartum ([facility]) 01/26/2022 H/O: hypothyroidism 11/15/2023 Hematochezia 06/12/2023 History [...] anemia 01/16/2020 Irregular uterine bleeding 11/15/2023 problem ([facility]) 06/12/2023 Less than 8 weeks gestation of ([facility]) 06/05/2019 prison (current) use of antithrombotics/antiplatelets 02/05/2019 Migraine without aura and without status migrainosus, not intractable 09/12/2017 Morbid [place] 11/15/2023 Muscle fasciculation 08/19/2021 Nasal polyps 11/15/2023 Non-smoker 11/15/2023 NEETA (obstructive sleep apnea) 11/15/2023 Other acute postprocedural pain 02/03/2019 Other general symptoms and signs 10/28/2019 Other immediate hemorrhage ([facility]) 01/16/2020 Other specified noninflammatory disorders of vagina 02/21/2019 Pain in joint 12/29/2016 Palpitations 08/26/2019 Paresthesia of bilateral legs 11/15/2023 Pelvic and perineal pain 02/01/2019 Personal history of urinary (tract) infections 01/16/2020 Pre-diabetes 11/15/2023 Primary hypercoagulable state ([facility]) 08/01/2022 Pruritus, unspecified 01/02/2020 Psychogenic hyperventilation 06/12/2023 Raised antibody titer 09/25/2017 Right lower quadrant pain 11/15/2023 Right otitis externa 11/15/2023 Salivary gland swelling 11/15/2023 Single live ([facility]) 01/15/2020 Snoring 11/15/2023 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) 12/30/2019 Suspected severe acute respiratory syndrome coronavirus 2 (SARS-CoV-2) infection 06/12/2023 SVT (supraventricular tachycardia) ([facility]) 08/26/2019 Syncope and collapse 06/03/2018 Other [...] drainage of cyst WISDOM TOOTH EXTRACTION 2007 [place] teeth REVIEW OF SYSTEMS Review of Systems: [...] nursing note reviewed. Exam conducted with a furnace process plant operator present. Vitals: Estimated body mass index is 34.06 kg/m?? as calculated from the following: Height as of 11/19/23: 5' 6 . Weight as of this encounter: 211 lb. BP: 120/78 Patient's last menstrual period was 07/28/2024. Assessment/Plan ICD-10-CM 1. 36 weeks gestation of ([facility]) Z3A.36 POCT urinalysis dipstick manually resulted 2. Third trimester ([facility]) Z34.93 POCT urinalysis dipstick manually resulted CULTURE, GROUP B STREP WITH SUSCEPTIBLITY CULTURE, GROUP B STREP WITH SUSCEPTIBLITY 3. Anemia complicating childbirth ([facility]) O99.02 4. Anticoagulant long-term use Z79.01 5. Antiphospholipid antibody positive R76.0 6. Antiphospholipid antibody syndrome ([facility]) D68.61 7. Thyroid disease E07.9 Assessment/Plan Return [...] Plan of Treatment DateTypeDepartmentCare Team (Latest Contact Info)Udkvanwujmw96/17/2025 1:50 PM ESTRoutine [facility] [address] [place] [phone] Wilton Herrmann DO [address] [place] [address] NameTypePriorityAssociated DiagnosesOrder ScheduleCULTURE, GROUP B STREP WITH SUSCEPTIBLITYLabRoutine Third trimester ([facility]) Expected: 04/08/2025, Expires: 04/08/2026documented as of this encounter Procedures Procedure NamePriorityDate/TimeAssociated DiagnosisCommentsPOCT URINALYSIS QMPRESEXBqqeswn29/10/2025 2:12 PM EST 36 weeks gestation of ([facility]) Third trimester ([facility]) documented in this encounter Results * (ABNORMAL) [...] Location / LateralityCollection Method / VolumeCollection TimeReceived TnjuOrkdr70/10/2025 2:12 PM EST Narrative Authorizing ProviderResult TypeResult StatusCorey Montez DOPOINT OF CARE TEST ENTER/EDIT ORDERABLESFinal Result documented in this encounter Visit Diagnoses Diagnosis 36 weeks gestation of ([facility]) Third trimester ([facility]) state, incidental Anemia complicating childbirth ([facility]) Anticoagulant long-term use Encounter for long-term (current) use of anticoagulants Antiphospholipid antibody positive Other and unspecified nonspecific immunological findings Antiphospholipid antibody syndrome ([facility]) Primary hypercoagulable state Thyroid disease Unspecified disorder of thyroid documented in this encounter Care Teams Team MemberRelationshipSpecialtyStart DateEnd Date Evans Casas MD [address] [place] [address] PCP - GeneralFamily Medicine11/07/23documented as of this encounter
--- OUTSIDE RECORDS SUMMARY | 2025-04-08 20:03 | XMS_ITS | Encounter Summary ---
Author Organization [facility] Address [address] [place] [address] Care Team Providers Care Patrol Driver Name Role Phone Evans Casas MD Primary Care Provider [phone] Encounter Details DateTypeDepartmentCare Team (Latest Contact Info)Phzxarwmnyh62/04/2025linisync Result Encounter [facility] External Department Unsolicited Mya Herrmann DO [address] [place] [address] Social History Tobacco UseTypesPacks/DayYears UsedDateSmoking Tobacco: NeverSmokeless Tobacco: NeverAlcohol UseStandard Drinks/WeekCommentsNever0 (1 standard drink = 0.6 oz pure alcohol)PHQ-2AnswerDate RecordedPatient Health Questionnaire-2 Score0 03/03/2025Estimated Date of XgxoabeaWfffrrzbVdf00/05/2026Based on last menstrual period of 07/28/2024Sex and Gender InformationValueDate RecordedSex Assigned at BirthNot on fileLegal NezUnwmjk13/15/2023 11:19 PM EDTGender IdentityNot on fileSexual OrientationNot on filedocumented as of this encounter Plan of Treatment DateTypeDepartmentCare Team (Latest Contact Info)Zyxocqxpmlx61/17/2025 1:50 PM ESTRoutine [facility] [address] [place] [phone] May Herrmann DO [address] [place] [address] documented as of this encounter Procedures Procedure NamePriorityDate/TimeAssociated DiagnosisCommentsUS OB BPP W NON-KTSHTM8904/02/2025 8:01 PM EST documented in this encounter Results * US OB BPP W NON-STRESS (04/02/2025 8:01 PM EST)Anatomical Region LateralityModalityOtherSpecimen (Source)Anatomical Location / Laterality Collection Method / VolumeCollection TimeReceived Time04/02/2025 8:01 PM EST Narrative 04/02/2025 8:04 PM EST [facility] ?[address] ? [place] [address] ? Ultrasound Report ? Signed ? Patient: SANNA RENDON S ?MR#: [id number] ?? : 1985 ?Acct:[id number] ?? Age/Sex: 39 / F ?ADM Date: 04/02/25 ?? Loc: [facility] ??250-1 ? Attending Dr: Mya Herrmann D.O. ? Ordering Physician: Mya Herrmann D.O. ?? Date of Service: 04/02/25 ?? Procedure(s): US OB BPP w non-stress ?? Accession Number(s): [id number] ? cc: Mya Herrmann D.O.; Physician,Non-Staff M.D. ? [facility] ? [facility]. [facility] ? [place] [address] ? Patient Name: ?? SANNA RENDON ? MRN: [facility]:[id number] ? date: 1985 ?Sex: F ?? Assigned Patient Location: [facility] ?? Current Patient Location: [facility] ?? Accession/Order Number: [id number] ?? Exam Date: 04/02/2025 ??19:15 ?Report Date: 04/02/2025 ??20:01 ? At the request of: ?? MYA ??MONTEZ ??DO ? Procedure: ??US OB BPP w non-stress ? Ultrasound biophysical profile ? INDICATION: Gestational diabetes ? COMPARISON: 03/25/2025 ? FINDINGS AND IMPRESSION: Fetus in breech presentation. ?? heart rate 135 ?? beats per minutes. ??SARAHI measuring 14.1 cm. ??Biophysical profile 12/05. ? Impression dictated by: Mert Estrada M.D. ??04/02/2025 8:01 PM ? Dictation Location: RADIO-PC-29 ? Electronically authenticated by: [id number] ??Y ?? Date: 04/02/2025 ??20:01 ? Dictated By: ?Mert Estrada M.D. ? Signed By: ?04/02/252003 ? DD/ 00 ? TD/TT: ? Rn Interventional: Procedure Note Radiology, Radiologist, - 04/02/2025 [place] [address] Ultrasound Report Signed Patient: SANNA RENDON SMR#: [id number] : 1985Acct:[id number] Age/Sex: 39 / FADM Date: 04/02/25 Loc: [facility] 250-[address]: Mya Herrmann D.O. Ordering Physician: Mya Herrmann D.O. Date of Service: 04/02/25 Procedure(s): US OB BPP w non-stress Accession Number(s): [id number] cc: Mya Herrmann D.O.; Physician,Non-Staff Tamia The [place] [address] Patient Name: SANNA RENDON MRN: [facility]:[id number] date: 1985 Sex: F Assigned Patient Location: [facility] Current Patient Location: [facility] Accession/Order Number: [id number] Exam Date: 04/02/2025 19:15 Report Date: 04/02/2025 20:01 At the request of: MYA HERRMANN DO Procedure: US OB BPP w non-stress Ultrasound biophysical profile INDICATION: Gestational diabetes COMPARISON: 03/25/2025 FINDINGS AND IMPRESSION: Fetus in breech presentation. heart qlan642 beats per minutes. SARAHI measuring 14.1 cm. Biophysical profile 12/05. Impression dictated by: Mert Estrada M.D. 04/02/2025 8:01 PM Dictation Location: [place] [address] Electronically authenticated by: [id number] Y Date: 0:01 Dictated By: Mert Estrada M.D. Signed By:04/02/252003 DD/ 00 TD/TT: Rn Interventional: Authorizing ProviderResult TypeResult StatusCorey Montez DOCLINISYNC IMAGINGFinal Result documented in this encounter Visit Diagnoses Not on filedocumented in this encounter Care Teams Team MemberRelationshipSpecialtyStart DateEnd Date Evans Casas MD [address] [place] [address] PCP - GeneralFamily Medicine11/07/23documented as of this encounter
--- OUTSIDE RECORDS SUMMARY | 2025-04-08 20:03 | XMS_ITS | Encounter Summary ---
Author Organization [facility] Address [address] [facility] [place] [address] Care Team Providers Care Fruit Inspector Name Role Phone Evans Casas MD Primary Care Provider [phone] Encounter Details DateTypeDepartmentCare Team (Latest Contact Info)Sguuogqshgr60/26/2025amboo flowsheet [facility] [address] [place] [address] Wilton Herrmann DO [address] [place], [place] [address] Social History Tobacco UseTypesPacks/DayYears UsedDateSmoking Tobacco: NeverSmokeless Tobacco: NeverAlcohol UseStandard Drinks/WeekCommentsNever0 (1 standard drink = 0.6 oz pure alcohol)PHQ-2AnswerDate RecordedPatient Health Questionnaire-2 Score0 03/03/2025Estimated Date of NiiupvfgKkgxydziWcz73/05/2026Based on last menstrual period of 07/28/2024Sex and Gender InformationValueDate RecordedSex Assigned at BirthNot on fileLegal KvxTvikfc30/15/2023 11:19 PM EDTGender IdentityNot on fileSexual OrientationNot on filedocumented as of this encounter Plan of Treatment DateTypeDepartmentCare Team (Latest Contact Info)Xyitjmseuxq40/17/2025 1:50 PM ESTRoutine [facility] [address] [place] [address] Wilton Herrmann, [address] [place] [address] documented as of this encounter Visit Diagnoses Not on filedocumented in this encounter Care Teams Team MemberRelationshipSpecialtyStart DateEnd Date Evans Casas MD [address] [place] [address] PCP - GeneralFamily Medicine11/07/23documented as of this encounter
--- OUTSIDE RECORDS SUMMARY | 2025-04-08 20:03 | XMS_ITS | Encounter Summary ---
Author Organization [facility] Address [address] [facility] [place] [address] Care Team Providers Care Coach Name Role Phone Evans Casas MD Primary Care Provider [phone] Encounter Details DateTypeDepartmentCare Team (Latest Contact Info)Wgkbvnkfgct55/10/2025amboo flowsheet [facility] [address] [place] [address] Wilton Herrmann DO [address] [place], [facility] Social History Tobacco UseTypesPacks/DayYears UsedDateSmoking Tobacco: NeverSmokeless Tobacco: NeverAlcohol UseStandard Drinks/WeekCommentsNever0 (1 standard drink = 0.6 oz pure alcohol)PHQ-2AnswerDate RecordedPatient Health Questionnaire-2 Score0 03/03/2025Estimated Date of YoagwdrqVugxlhycCrf50/05/2026Based on last menstrual period of 07/28/2024Sex and Gender InformationValueDate RecordedSex Assigned at BirthNot on fileLegal AgsLvezbi68/15/2023 11:19 PM EDTGender IdentityNot on fileSexual OrientationNot on filedocumented as of this encounter Plan of Treatment DateTypeDepartmentCare Team (Latest Contact Info)Okabozotnmh69/17/2025 1:50 PM ESTRoutine [facility] [address] [place] [address] Wilton Herrmann, [address] [place] [address] documented as of this encounter Visit Diagnoses Not on filedocumented in this encounter Care Teams Team MemberRelationshipSpecialtyStart DateEnd Date Evans Casas MD [address] [place] [address] PCP - GeneralFamily Medicine11/07/23documented as of this encounter
--- OUTSIDE RECORDS SUMMARY | 2025-04-08 20:03 | XMS_ITS | Encounter Summary ---
Author Organization [facility] Address [address] [facility] [place] [address] Care Team Providers Care Soft Work Wrapper Layer And Examiner Name Role Phone Evans Casas MD Primary Care Provider Encounter Details DateTypeDepartmentCare Team (Latest Contact Info)Zzwiztmlsjr41/26/2025linisync Result Encounter [facility] External Department Unsolicited Mya Herrmann DO [address] [place], [facility]11 Social History Tobacco UseTypesPacks/DayYears UsedDateSmoking Tobacco: NeverSmokeless Tobacco: NeverAlcohol UseStandard Drinks/WeekCommentsNever0 (1 standard drink = 0.6 oz pure alcohol)PHQ-2AnswerDate RecordedPatient Health Questionnaire-2 Score0 03/03/2025Estimated Date of VlnhjjuwIhnahbmiWqw02/05/2026Based on last menstrual period of 07/28/2024Sex and Gender InformationValueDate RecordedSex Assigned at BirthNot on fileLegal SnqLlwlwz73/15/2023 11:19 PM EDTGender IdentityNot on fileSexual OrientationNot on filedocumented as of this encounter Plan of Treatment DateTypeDepartmentCare Team (Latest Contact Info)Kvwltwrkbys92/17/2025 1:50 PM ESTRoutine [facility] [address] [place] [phone] Mya Herrmann DO [address] [place] [address] documented as of this encounter Procedures Procedure NamePriorityDate/TimeAssociated DiagnosisCommentsUS OB BPP W NON-BRGQDS5503/25/2025 8:58 PM EST documented in this encounter Results * US OB BPP W NON-STRESS (03/25/2025 8:58 PM EST)Anatomical Region LateralityModalityOtherSpecimen (Source)Anatomical Location / Laterality Collection Method / VolumeCollection TimeReceived Time03/25/2025 8:58 PM EST Narrative 03/25/2025 9:00 PM EST [facility] ?[address] ? [place] [address] ? Ultrasound Report ? Signed ? Patient: SANNA RENDON S ?MR#: [id number] ?? : 1985 ?Acct:[id number] ?? Age/Sex: 39 / F ?ADM Date: 03/25/25 ?? Loc: US ? Attending Dr: Mya Herrmann D.O. ? Ordering Physician: Mya Herrmann D.O. ?? Date of Service: 03/25/25 ?? Procedure(s): US OB BPP w non-stress ?? Accession Number(s): [id number] ? cc: Mya Herrmann D.O.; Physician,Non-Staff M.D. ? [facility] ? [address] ? [place] [address] ? Patient Name: ?? SANNA RENDON ? MRN: [facility]:[id number] ? date: 1985 ?Sex: F ?? Assigned Patient Location: [facility] ?? Current Patient Location: ? Accession/Order Number: [id number] ?? Exam Date: 03/25/2025 ??19:22 ?Report Date: [...] Dictation Location: RADIO-PC-29 ? Electronically authenticated by: [id number] ??Y ?? Date: 03/25/2025 ??20:58 ? Dictated By: ?Mert Estrada M.D. ? Signed By: ?03/25/252099 ? DD/ 57 ? TD/TT: ? Hands And Dial Inspector: Procedure Note Radiology, Radiologist, - 03/25/2025 [place] [address] Ultrasound Report Signed Patient: SANNA RENDON SMR#: [id number] : 1985Acct:[id number] Age/Sex: 39 / FADM Date: 03/25/25 Loc: US Attending Dr: Mya Herrmann D.O. Ordering Physician: Mya Herrmann D.O. Date of Service: 03/25/25 Procedure(s): US OB BPP w non-stress Accession Number(s): [id number] cc: Mya Herrmann D.O.; Physician,Non-Staff Tamia The [place] [id number] Patient Name: SANNA RENDON MRN: [facility]:[id number] date: 1985 Sex: F Assigned Patient Location: [facility] Current Patient Location: Accession/Order Number: [id number] Exam Date: 03/25/2025 19:22 Report Date: 03/25/2025 20:58 At the request of: MYA HERRMANN DO Procedure: US OB BPP w non-stress Ultrasound biophysical profile INDICATION: Third trimester COMPARISON: 03/19/2025 FINDINGS AND IMPRESSION: Fetus in breech presentation. heart ozyc205 beats per minutes. SARAHI measuring 11.1 cm. Biophysical profile 12/05. Impression dictated by: Mert Estrada M.D. 03/25/2025 8:58 PM Dictation Location: [place] [address] Electronically authenticated by: [id number] Y Date: 0:58 Dictated By: Mert Estrada M.D. Signed By:03/25/25 2100 DD/ 57 TD/TT: Hands And Dial Inspector: Authorizing ProviderResult TypeResult StatusCorey Montez DOCLINISYNC IMAGINGFinal Result documented in this encounter Visit Diagnoses Not on filedocumented in this encounter Care Teams Team MemberRelationshipSpecialtyStart DateEnd Date Evans Casas MD [address] [place] [address] PCP - GeneralFamily Medicine11/07/23documented as of this encounter
--- OUTSIDE RECORDS SUMMARY | 2025-04-08 20:03 | XMS_ITS | Encounter Summary ---
Author Organization [facility] [employer] [facility] tem Address [id number] [address] [place] [address] Care Team Providers Care Mutual Fund Sales Agent Name Role Phone Evans Casas DO Primary Care Provider [phone] Encounter Details DateTypeDepartmentCare Team (Latest Contact Info)Namuaprjzss23/09/2025Travel Social History Tobacco UseTypesPacks/DayYears UsedDateSmoking Tobacco: NeverSmokeless Tobacco: NeverAlcohol UseStandard Drinks/WeekCommentsNot Currently0 (1 standard drink = 0.6 oz pure alcohol)ChildcareAnswerDate RocjroaiKmfowdessFvurhdx77/31/2019 EmploymentAnswerDate VygrbcjgLinrcrhsiwMryrnmb49/31/2019Hunger ScreeningAnswer Date RecordedWithin the past 12 months we worried whether our food would run out before we got money to buy more.Never True01/01/2025Within the past 12 months the food we bought just didn't last and we didn't have money to get more.Never True01/01/2025Purpose - LifeAnswerDate RecordedPurpose and direction in life Srxeqqe49/11/2021Estimated Date of QresmbwyEhwyxrrgLhh25/05/2026Based on last menstrual period of 07/28/2024Sex and Gender InformationValueDate Recorded Sex Assigned at BirthNot on fileLegal WxvPnpcbn65/31/2019 12:25 PM EDTGender IdentityNot on fileSexual OrientationNot on filedocumented as of this encounter Plan of Treatment Not on file documented as of this encounter Visit Diagnoses Not on filedocumented in this encounter Care Teams Team MemberRelationshipSpecialtyStart DateEnd Date Evans Casas DO PCP - GeneralFamily Medicine07/07/19documented as of this encounter
--- OUTSIDE RECORDS SUMMARY | 2025-04-08 20:04 | XMS_ITS | Encounter Summary ---
Author Organization [facility] Address [address] [place] [address] Care Team Providers Care Planning Official Name Role Phone Jonny Wilcox MD Unavailable [phone] Cosmo Elliott MD Unavailable [phone] Davida Restrepo RN Unavailable [phone] Evans Casas DO Primary Care Provider [phone] Source Comments In the event this information is protected by the Federal Confidentiality of Alcohol and Drug AbusePatient Records regulations: The Federal rules restrict any use of the information to criminally investigate or prosecute any alcohol or drug abuse patient.[facility] Encounter Details DateTypeDepartmentCare Team (Latest Contact Info)Xlwtqkyalph01/02/2025Telephone Cancer Appts [facility] [place] [address] Salvador Dos Santos MD [facility] [facility] [place] [address] Social History Tobacco UseTypesPacks/DayYears UsedDateSmoking Tobacco: NeverSmokeless Tobacco: NeverAlcohol UseStandard Drinks/WeekCommentsNo0 (1 standard drink = 0.6 oz pure alcohol)PHQ-2AnswerDate RecordedPHQ-2 [id number] Deprivation Index AnswerDate RecordedNational Score (1-100), lower number is lower risk58 09/28/2022State Score (1-10), lower number is lower [id number] from: https://www.neighborhoodatlas.medicine.[facility]/. Last address used for [address]Estimated Date of DeliveryCommentsYes 07/28/2024Sex and Gender InformationValueDate RecordedSex Assigned at BirthNot on fileLegal UwtBaktxn50/29/2018 10:06 AM ESTGender IdentityNot on fileSexual OrientationNot on fileOccupationIndustryJob Start DateJob End Datestay at home momNot on fileNot on fileNot on filedocumented as of this encounter Miscellaneous Notes * Telephone Encounter - Rachael Johnson RN - 03/31/2025 12:49 PM EST VM left for pt encouraging to call OB for TSH order. They will be managing, so order needs to come from them, to get the result. Aware we will draw same day, once order is rec'd. Rachael Johnson RN * Telephone Encounter - Sasha Dai - 03/31/2025 12:09 PM EST Sanna Morsechkiss is calling today regarding Her scheduled lab work 04/03/25. Patient requesting TSH order be placed. Patient reports that the L&D nurse was concerned because it is time for her to be drawn for that order, and some of her symptoms may be due to her levels. Patient wondering if she can be drawn while here 04/03/25, so she doesn't have to be drawn twice in one week. Patient has been identified by name and birthdate. Person calling: self Please return the call at [phone] Sasha Dai documented in this encounter Plan of Treatment DateTypeDepartmentCare Team (Latest Contact Info)Jlchgwzhoju44/09/2026 9:30 AM ESTOffice Visit [facility] Laboratory [address] [place] [address] lab in 5 weeks05/13/2025 5:00 PM [facility] Hematology/Oncology [address] [place] [address] Salvador Dos Santos MD [address] [place] [place] [address] VV for lab resultsdocumented as of this encounter Visit Diagnoses Not on filedocumented in this encounter Care Teams Team MemberRelationshipSpecialtyStart DateEnd Date Evans Casas DO [address] [facility] [address] PCP - GeneralFamily Cqjzwumv45/3/22 Jonny Wilcox MD [address] [place] [address] Primary Staff PhysicianCardiology07/16/18 [place] [address] [place] [address] PhysicianHematology/Oncology09/14/21 Davida Restrepo, MARSHA [address] [place] [address] Specialty Care CoordinatorHematology/Oncology09/14/21documented as of this encounter
--- OUTSIDE RECORDS SUMMARY | 2025-04-08 20:04 | XMS_ITS | Clinical Summary ---
Author Organization [facility] Address [address] [place] [address] Care Team Providers Care Egg Trayer Name Role Phone Jonny Wilcox MD Unavailable [phone] Cosmo Elliott MD Unavailable [phone] Davida Restrepo RN Unavailable [phone] Evans Casas DO Primary Care Provider [phone] Allergies Active AllergyReactionsCriticalityNoted DateCommentsCiprofloxacinOther: See Comments,Zemzoda1505/19/2019 Dizziness, weakness sweating Ciprofloxacin-FluocinoloneOther: See Vklnoahr98/20/2020 Dizziness, weakness sweating LactalbuminUnknown,GI PfyryTal88/26/2018 Crampy and gassy LactoseGI Upset09/10/2017 Diarrhea MilkOther: See InznppydNde70/26/2018 Crampy and gassy Diarrhea Other reaction(s): GI Upset Crampy and gassy Milk Containing Products (Dairy)Other: See RboyabfvVpg35/26/2018 Crampy and gassy Diarrhea Other reaction(s): GI Upset Crampy and gassy Seasonal AllergiesGI Upset,Other: See Qslqrhoy87/06/2021 Medications MedicationSigDispense QuantityRefillsLast FilledStart DateEnd DateStatus multivitamin [...] MEAL(S)Active Active Problems ProblemNoted DateDiagnosed DateAntiphospholipid antibody isvukymu95/29/2025 Vitamin D efxgbvgpgp18/29/2025Primary hypercoagulable state08/01/2022VA, old, speech/language rxkojmv5508/01/2022Iron deficiency anemia secondary to blood loss (chronic)03/27/2022Iron deficiency anemia of ngworpbmr01/28/2022nti-cardiolipin antibody ogeskjwn27/29/2018Migraine with aura and without status migrainosus, not gdaoqgsxoaa90/16/2018Antiphospholipid antibody frpxhanb01/14/2018Fatigue 12/29/2016Pain in joint12/29/2016Estimated Date of DeliveryCommentsYes 07/28/2024 Encounters DateTypeDepartmentCare OirkVnteqijneng87/05/2025 9:40 AM ESTVisit (SP) Office Hematology/Oncology [address] [place] [address] [place] [address] Salvador Dos Santos MD Antiphospholipid antibody positive (Primary Dx); Iron deficiency anemia secondary to blood loss (chronic); Primary hypercoagulable state (HCC); CVA, old, speech/language deficit; Gestational diabetes mellitus (GDM) in third trimester, gestational diabetes method of control unspecified (HCC); History of hemorrhage; Other vitamin B12 deficiency anemia; Diet controlled gestational diabetes mellitus (GDM) in third trimester (HCC); Antiphospholipid syndrome (HCC); MCC (current) use of anticoagulants; History of CVA (cerebrovascular accident) without residual deficits; Encounter for supervision of high risk in third trimester, antepartum (HCC)04/03/20255714Qhhrtp54/02/2025Telephone Cancer Appts [address] [place] [address] Salvador Dos Santos MD 03/02/2025 11:30 AM ESTVisit (SP) Office Hematology/Oncology [address] [place] [address] [place] [address] 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 APRN.BUSINESS DEVELOPMENT ANALYST Antiphospholipid antibody positive (Primary Dx); Iron deficiency anemia secondary to blood loss (chronic); Vitamin D deficiency; Primary hypercoagulable state (HCC); CVA, old, speech/language deficit; Gestational diabetes mellitus (GDM) in third trimester, gestational diabetes method of control unspecified (HCC); History of hemorrhage; Anemia complicating , third trimester (HCC)03/02/20258588Hrcona60/02/2025 Telephone Hematology/Oncology [address] [place] [address] [place] [address] Rachael Johnson RN Wmxobps1901/26/2025Telephone Hematology/Oncology [address] [place] [address] [place] [address] Rachael Johnson, MARSHA from Last 3 Months Immunizations ImmunizationAdministration DatesNext Duetetanus [...] drink = 0.6 oz pure alcohol)PHQ-2AnswerDate RecordedPHQ-2 zbxbn7074Area Deprivation Index AnswerDate RecordedNational Score (1-100), lower number is lower risk58 09/28/2022State Score (1-10), lower number is lower [id number] from: https://www.neighborhoodatlas.medicine.[facility].edu/. Last address used for h[address]Estimated Date of DeliveryCommentsYes 07/28/2024Sex and Gender InformationValueDate RecordedSex Assigned at BirthNot on fileLegal RejEdszww45/29/2018 10:06 AM ESTGender IdentityNot on fileSexual OrientationNot on fileOccupationIndustryJob Start DateJob End Datestay at home momNot on fileNot on fileNot on file Last Filed Vital Signs Vital SignReadingTime TakenCommentsBlood Jtgaqbxc259/7404/03/2025 9:24 AM EST Bcjrx652804/03/2025 9:24 AM FKLPrkbnxvyaoj20.5 ??C (97.7 ??F)04/03/2025 9:24 AM ESTRespiratory Wvqk704706/04/2024 9:24 AM ESTOxygen Lrgobhfoot80%04/03/2025 9:24 AM ESTInhaled Oxygen Concentration--Rbirya59 kg (211 lb 10.3 oz)04/03/2025 9:24 AM VXQTbqeol591.7 cm (5' 6.02 )12/23/2024 11:34 AM EDTBody Mass Index34.14 12/23/2024 11:34 AM EDT Plan of Treatment DateTypeDepartmentCare Team (Latest Contact Info)Cokzqihjrup93/09/2026 9:30 AM ESTOffice Visit [facility] Laboratory [address] [place] [address] lab in 5 weeks05/13/2025 5:00 PM [facility] Hematology/Oncology [address] [place] [address] Salvador Dos Santos MD [address] [place] [address] VV for lab resultsHealth MaintenanceDue DateLast DoneCommentsAnxiety Screening 10/22/2003Depression Srbqpwiuj14/24/2004HIV Khkdvozpf75/24/2004Hepatitis C Ewbudbpst90/24/2004Hepatitis B Vaccine (1 of 3 - 19+ 3-dose series)2004HPV Vaccine (1 - 3-dose SCDM series)2012Cervical Cancer Snknkjlgy19/07/2021 12/04/2017DTaP,Tdap,Td Vaccine (2 - Td or Tdap)Covid-19 Vaccine (1 - season)2024Influenza Vaccine (#1) (Patient/Parent/Guardian Counseled and Declines)RSV Vaccine (1 - 1-dose 75+ series)2060 Procedures Procedure NamePriorityDate/TimeAssociated DiagnosisCommentsIRON + TIBCRoutine 04/03/2025 9:20 AM EST 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) Vitamin D deficiency Primary hypercoagulable state (HCC) CVA, old, speech/language deficit FERRITIN EQEDdhkgse49/05/2025 9:20 AM EST 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) Vitamin D deficiency Primary hypercoagulable state (HCC) CVA, old, speech/language deficit COMPREHENSIVE METABOLIC XCOCEBmohvnb68/05/2025 9:20 AM EST 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) Vitamin D deficiency Primary hypercoagulable state (HCC) CVA, old, speech/language deficit CBC + RPEAIjjzhnn45/05/2025 9:20 AM EST 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) Vitamin D deficiency Primary hypercoagulable state (HCC) CVA, old, speech/language deficit COMPREHENSIVE METABOLIC XMMYFUqaypqx87/03/2025 11:40 AM EST 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) Vitamin D deficiency Primary hypercoagulable state (HCC) CBC + TJONZzutdti12/03/2025 11:40 AM EST 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) Vitamin D deficiency Primary hypercoagulable state (HCC) VITAMIN D 25 HPWTVKZYwlddnm76/03/2025 11:40 AM EST 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) Vitamin D deficiency from Last 3 Months Results * (ABNORMAL) IRON AND TIBC (04/03/2025 9:20 AM EST)ComponentValueRef RangeTest MethodAnalysis TimePerformed AtPathologist QbyuwwgmmPmpb8702 - 186 ug/dL 04/03/2025 6:56 PM EST[facility] ZJGZRNR960(H)232 - 386 ug/dL 04/03/2025 6:56 PM [facility] LABTransferrin Spcusievxv17.8(L) 15.0 - 57.0 %04/03/2025 6:56 PM [facility] LABSpecimen (Source) Anatomical Location / LateralityCollection Method / VolumeCollection Time Received TimeBloodBLOOD SPECIMEN / UnknownVenipuncture / Sehwxft2804/03/2025 9:20 AM EST04/03/2025 9:20 AM EST Narrative Authorizing ProviderResult TypeResult Chester Caban APRN.CNPLABORATORY Final ResultPerforming OrganizationAddressCity/State/ZIP CodePhone Number [facility] LAB [address] [place] [address], * (ABNORMAL) FERRITIN (04/03/2025 9:20 AM EST)ComponentValueRef RangeTest Method Analysis TimePerformed AtPathologist TaodzqirvNpggraig26.8(L)14.7 - 205.1 ng/mL04/03/2025 7:03 PM [facility] LABSpecimen (Source) Anatomical Location / LateralityCollection Method / VolumeCollection Time Received TimeBloodBLOOD SPECIMEN / UnknownVenipuncture / Metggky0504/03/2025 9:20 AM EST04/03/2025 9:20 AM EST Narrative Authorizing ProviderResult TypeResult Chester Caban APRN.CNPLABORATORY Final ResultPerforming OrganizationAddressCity/State/ZIP CodePhone Number [facility] [address] * (ABNORMAL) COMPREHENSIVE METABOLIC PANEL (04/03/2025 9:20 AM EST) Only the most recent of2 resultswithin the time period is included. ComponentValueRef RangeTest MethodAnalysis TimePerformed AtPathologist Signature Protein, Total6.46.3 - 8.0 g/dL04/03/2025 10:27 AM [facility] LABAlbumin3.93.9 - 4.9 g/dL04/03/2025 10:27 AM [facility] LABCalcium, Total9.48.5 - 10.2 mg/dL04/03/2025 10:27 AM EST [facility] LABBilirubin, Total0.20.2 - 1.3 mg/dL 04/03/2025 10:27 AM [facility] LABAlkaline Phosphatase 8834 - 123 U/L106/04/2024 10:27 AM [facility] EUOSMG41 (L)13 - 35 U/L106/04/2024 10:27 AM [facility] XXYQHB09 - 38 U/L106/04/2024 10:27 AM [facility] AKIHkgudsx9498 - 99 mg/dL04/03/2025 10:27 AM [facility] LABComment: The [place] Diabetes Association (ADA) provides guidance for cutoff [...] Standards of Medical Care in Diabetes 2016, [place] Diabetes Association. Diabetes Care. 2016.39(Suppl 1). BUN6(L)7 - 21 mg/dL04/03/2025 10:27 AM [facility] LAB Creatinine0.53(L)0.58 - 0.96 mg/dL04/03/2025 10:27 AM [facility] KJEPqcznb901(L)136 - 144 mmol/L106/04/2024 10:27 AM [facility] LABPotassium4.13.7 - 5.1 mmol/L106/04/2024 10:27 AM EST [facility] XVGWlngyuvy36699 - 107 mmol/L106/04/2024 10:27 AM [facility] VLALP89147 - 30 mmol/L106/04/2024 10:27 AM [facility] LABAnion Vrs315 - 15 mmol/L106/04/2024 10:27 AM [facility] LABEstimated Glomerular Filtration Xvpx915>=60 mL/min/1.73m 04/03/2025 10:27 AM [facility] LABComment:Estimated Glomerular Filtration Rate (eGFR) [...] VolumeCollection TimeReceived TimeBloodBLOOD SPECIMEN / UnknownVenipuncture / Xxfomjz4404/03/2025 9:20 AM EST04/03/2025 9:20 AM EST Narrative Authorizing ProviderResult TypeResult StatusHolly Arsh GAY.CNPLABORATORY Final ResultPerforming OrganizationAddressCity/State/ZIP CodePhone Number [facility] LAB [address] [place] [address] * (ABNORMAL) COMPLETE BLOOD COUNT AND DIFFERENTIAL (04/03/2025 9:20 AM EST) Only the most recent of2 resultswithin the time period is included. ComponentValueRef RangeTest MethodAnalysis TimePerformed AtPathologist Signature WBC7.113.70 - 11.00 k/uL04/03/2025 9:27 AM [facility] LABRBC3.923.90 - 5.20 m/uL04/03/2025 9:27 AM [facility] HIZLneqorbvhp30.211.5 - 15.5 g/dL04/03/2025 9:27 AM [facility] IONAsdoxxrqrp63.5(L)36.0 - 46.0 %04/03/2025 9:27 AM EST [facility] GFXVMW19.080.0 - 100.0 fL04/03/2025 9:27 AM [facility] SHAWZW21.126.0 - 34.0 pg04/03/2025 9:27 AM [facility] BSOBMDZ62.430.5 - 36.0 g/dL04/03/2025 9:27 AM [facility] LABRDW-CV13.611.5 - 15.0 %04/03/2025 9:27 AM [facility] LABPlatelet Blfyc330767 - 400 k/uL 04/03/2025 9:27 AM [facility] LABMPV9.59.0 - 12.7 fL 04/03/2025 9:27 AM [facility] LABNeutrophils %61.6% 04/03/2025 9:27 AM [facility] LABAbs Neut4.371.45 - 7.50 k/uL04/03/2025 9:27 AM [facility] LABLymphocytes %27.8%04/03/2025 9:27 AM [facility] LABAbs Lymph1.98 1.00 - 4.00 k/uL04/03/2025 9:27 AM [facility] LAB Monocytes %9.3%04/03/2025 9:27 AM [facility] LABAbs Mono0.66<0.87 k/uL04/03/2025 9:27 AM [facility] LAB Eosinophils %0.8%04/03/2025 9:27 AM [facility] LABAbs Eosin0.06<0.46 k/uL04/03/2025 9:27 AM [facility] LAB Basophils %0.1%04/03/2025 9:27 AM [facility] LABAbs Baso<0.03<0.11 k/uL04/03/2025 9:27 AM [facility] LAB Immature Granulocytes %0.4%04/03/2025 9:27 AM [facility] LABAbs Immature Gran0.03<0.10 k/uL04/03/2025 9:27 AM [facility] LABNRBC0.0/100 WBC04/03/2025 9:27 AM [facility] LABAbsolute nRBC<0.01<0.01 k/uL04/03/2025 9:27 AM EST [facility] LABDiff LabjIisy47/05/2025 9:27 AM EST [facility] LABSpecimen (Source)Anatomical Location / LateralityCollection Method / VolumeCollection TimeReceived TimeBloodBLOOD SPECIMEN / UnknownVenipuncture / Clderwq0804/03/2025 9:20 AM EST04/03/2025 9:20 AM EST Narrative Authorizing ProviderResult TypeResult StatusHolly Arsh HATHAWAYNLazaraCNPLABORATORY Final ResultPerforming OrganizationAddressCity/State/ZIP CodePhone Number [facility] [address] [place] [address] * VITAMIN D 25 HYDROXY (03/02/2025 11:40 AM EST)ComponentValueRef RangeTest MethodAnalysis TimePerformed AtPathologist SignatureVitamin D 25 Xjzcyuv80.6 31.0 - 80.0 ng/mL03/02/2025 9:47 PM ESTKING'[facility] LABSpecimen (Source)Anatomical Location / LateralityCollection Method / VolumeCollection TimeReceived TimeBloodBLOOD SPECIMEN / UnknownVenipuncture / Gabefio6303/02/2025 11:40 AM EST03/02/2025 11:41 AM EST Narrative Authorizing ProviderResult TypeResult StatusHolly Arsh OCHOACNPLABORATORY Final ResultPerforming OrganizationAddressCity/State/ZIP CodePhone Number [facility] [address] [place] [address], from Last 3 Months Insurance MemberSubscriberPlan / Payer (Effective 2022-Present)Name:Sanna Bone Relation to Subscriber:SelfName:Sanna Bone Payer ID:[id number] (NAIC) Group ID:[id number] Type:Medicaid Address: [place] [id number] Care Teams Team MemberRelationshipSpecialtyStart DateEnd Evans Casas DO [address] [place] [address] PCP - GeneralFamily Qpakkfcr22/3/22 Jonny Wilcox MD [address] [place] [id number] Primary Staff PhysicianCardiology07/16/18 [place] [address] [place] [phone] PhysicianHematology/Oncology09/14/21 Davida Restrepo, MARSHA [address] [place] [phone] Specialty Care CoordinatorHematology/Oncology09/14/21
--- OUTSIDE RECORDS SUMMARY | 2025-04-08 20:04 | XMS_ITS | Encounter Summary ---
Author Organization [facility] Address [address] [place] [address] Care Team Providers Care Floor Installation Mechanic Name Role Phone Jonny Wilcox MD Unavailable [phone] Cosmo Elliott MD Unavailable [phone] Davida Restrepo RN Unavailable [phone] Evans Casas DO Primary Care Provider [phone] Source Comments In the event this information is protected by the Federal Confidentiality of Alcohol and Drug AbusePatient Records regulations: The Federal rules restrict any use of the information to criminally investigate or prosecute any alcohol or drug abuse patient.[facility] Encounter Details DateTypeDepartmentCare Team (Latest Contact Info)Bkudqdoulen75/05/2025Travel Social History Tobacco UseTypesPacks/DayYears UsedDateSmoking Tobacco: NeverSmokeless Tobacco: NeverAlcohol UseStandard Drinks/WeekCommentsNo0 (1 standard drink = 0.6 oz pure alcohol)PHQ-2AnswerDate RecordedPHQ-2 nthio8744Area Deprivation Index AnswerDate RecordedNational Score (1-100), lower number is lower risk58 09/28/2022State Score (1-10), lower number is lower dqgp2543Data from: https://www.neighborhoodatlas.medicine.[facility].edu/. 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 at home momNot on fileNot on fileNot on filedocumented as of this encounter Plan of Treatment DateTypeDepartmentCare Team (Latest Contact Info)Oxnbmrogxyb92/09/2026 9:30 AM ESTOffice Visit [facility] [address] [place] [address] lab in 5 weeks05/13/2025 5:00 PM [facility] Hematology/Oncology [address] [place] [address] Salvador Dos Santos MD [address] [place] [address] VV for lab resultsdocumented as of this encounter Visit Diagnoses Not on filedocumented in this encounter Care Teams Team MemberRelationshipSpecialtyStart DateEnd Date Evans Casas DO [address] [facility] [place] [address] PCP - GeneralFamily Ureqzxms09/3/22 Jonny Wilcox MD [address] [facility] [place] [address] Primary Staff PhysicianCardiology07/16/18 [place] [address] [place] [address] PhysicianHematology/Oncology09/14/21 Davida Restrepo RN [address] [place] [address] Specialty Care CoordinatorHematology/Oncology09/14/21documented as of this encounter
--- OUTSIDE RECORDS SUMMARY | 2025-04-08 20:04 | XMS_ITS | Clinical Summary ---
Author Organization [employer] tem Address [id number] [address] [place] [address] Care Team Providers Care Itinerant Teacher Assistant Name Role Phone Evans Casas DO Primary Care Provider [phone] Allergies Active AllergyReactionsCriticalityNoted DateCommentsCiprofloxacinDizziness 06/19/2019LactalbuminOther (See Comments)Low05/25/2017 Other reaction(s): GI Upset Crampy and gassy LactoseGI Jvbcerxbtmc85/14/2018 Diarrhea Milk Containing Products (Dairy)Other (See Comments)Low05/25/2017 [...] ProblemNoted DateDiagnosed DateGestational diabetes mellitus (GDM) in third trimester controlled on oral hypoglycemic drug12/17/20242268Qizsuo34/08/2025MA (advanced maternal age) multigravida 35+11/04/2024ntiphospholipid syndrome 11/04/20247649Rrwrgpndyoc18/08/5092Fbbaus52/08/2025ntiphospholipid syndrome complicating , mgynnyksdo70/09/2020Estimated Date of Delivery TjyfidgvRbt52/05/2026Based on last menstrual period of 07/28/2024 Resolved Problems ProblemNoted DateDiagnosed DateResolved DateCerebral infarction, unspecified Migraine without aura and without status migrainosus, not ictkzlslkip71 Encounters DateTypeDepartmentCare EfywRnrczxolfzh15/09/2025 1:30 PM ESTTelemedicine Maternal- Medicine at [facility] [address] [place] [address] Davida Smith PA-C Gestational diabetes mellitus (GDM) in third trimester controlled on oral hypoglycemic drug (Primary Dx)04/07/20250910Ltuybe83/18/2025 2:00 PM ESTTelemedicine [facility] Department of [address] [address] Sam Callahan MD MPH Antiphospholipid syndrome complicating , antepartum (Primary Dx); Antiphospholipid syndrome; History of CVA (cerebrovascular accident); Coordination of complex care; 33 weeks gestation of ctqpzogon24/18/2025Orders Only [facility] Department of [address] [address] Ref Prov, Not In System 03/17/20253822Exoffx02/12/2025 9:45 AM ESTTelemedicine Maternal- Medicine at [facility] [address] [place] [address] Sana Palma MD Khurshid, Nauman, MD Gestational diabetes mellitus (GDM) in second trimester controlled on oral hypoglycemic drug (Primary Dx); Antiphospholipid abiambyh02/12/6297Vgtplo95/07/4755Pugyet92/23/2025Orders Only [facility] Department of [address] [address] Ref Prov, Not In System 02/18/2025Orders Only [facility] Department of [address] [address] Ref Prov, Not In System 02/16/2025 1:45 PM EDTOffice Visit [facility], [facility] Department of [facility] [address] [facility] [place] [address] Sam Callahan MD MPH Antiphospholipid syndrome (Primary Dx); Antiphospholipid syndrome complicating , antepartum; History of CVA (cerebrovascular accident); Coordination of complex care; 29 weeks gestation of qsqwhambf20/20/1830Rsyblq87/14/2025Telephone Maternal- Medicine at [facility] [address] [place] [address] Annita Kendall LD 02/06/2025 2:00 PM EDTTelemedicine Maternal- Medicine at [facility] [address] [place] [address] Wilfrid Medina MD 27 weeks gestation of (Primary Dx); Multigravida of advanced maternal age in third trimester; Gestational diabetes mellitus (GDM) in second trimester controlled on oral hypoglycemic drug; Antiphospholipid syndrome complicating , antepartum; Antiphospholipid mldytzrd78/10/8963Iwiydg45/09/0838Xexyec20/16/2025 10:00 AM EDT Telemedicine Maternal- Medicine at [facility] [address] [place] [address] Davida Smith PA-C Gestational diabetes mellitus (GDM) in second trimester controlled on oral hypoglycemic drug (Primary Dx); Antiphospholipid syndrome; Other specified hypothyroidism; Antiphospholipid syndrome complicating , tjcnlldfex59/16/2025Travel 01/09/2025Telephone Maternal- Medicine at [facility] [address] [place] [address] Wilfrid Medina MD 01/09/2025Orders Only Maternal- Medicine at [facility] [address] [place] [address] Wilfrid Medina MD Antiphospholipid syndrome (Primary Dx)01/07/2025Telephone Maternal- Medicine at [facility] [address] [place] [address] Jacque Pat RN from Last 3 Months Family History Medical DuzrrdkToeovakgUgvxCzlbtwlkQefwzugrAijogjB8KKIaunzpTgxnsuJeszww illness Maternal GrandmotherCancerPaternal GrandfatherDiabetesPaternal YsguuhahcayA9AS CancerPaternal GrandmotherDiabetesPaternal EaekcecklcsS5VWFtlgavgyNbybrgG7CB RelationNameStatusCommentsFatherDeceasedMaternal GrandmotherPaternal Grandfather Paternal GrandmotherSister Social History Tobacco UseTypesPacks/DayYears UsedDateSmoking Tobacco: NeverSmokeless Tobacco: Never Tobacco Cessation:Counseling Given: Not Answered Alcohol UseStandard Drinks/WeekCommentsNot Currently0 (1 standard drink = 0.6 oz pure alcohol)ChildcareAnswerDate ShtmdwsvOyktzbztnGotavff77/31/2019Employment AnswerDate QxvieuhdBmglwhjidkHizxcsj21/31/2019Hunger ScreeningAnswerDate RecordedWithin the past 12 months we worried whether our food would run out before we got money to buy more.Never True01/01/2025Within the past 12 months the food we bought just didn't last and we didn't have money to get more.Never True01/01/2025Purpose - LifeAnswerDate RecordedPurpose and direction in life Kzchmxz99/11/2021Estimated Date of SnvytgzaGizzmipbOhx56/05/2026Based on last menstrual period of 07/28/2024Sex and Gender InformationValueDate Recorded Sex Assigned at BirthNot on fileLegal SfsTydhtu33/31/2019 12:25 PM EDTGender IdentityNot on fileSexual OrientationNot on file Last Filed Vital Signs Vital SignReadingTime TakenCommentsBlood Scyrmjnf981/8010/ 1:44 PM EDT Cavvz1624 1:44 PM EDTTemperature--Respiratory Siwb4658 1:44 PM EDTOxygen Saturation--Inhaled Oxygen Concentration--Axcmfx51.8 kg (209 lb) 02/16/2025 1:44 PM QYGQzghaw660.6 cm (5' 6 )02/16/2025 1:44 PM EDTBody Mass Index33.7302/16/2025 1:44 PM EDT Plan of Treatment Health MaintenanceDue DateLast DoneCommentsDepression Flpzgaanh62/24/1998Adult BMI Follow Up Plan10/22/2003DTaP,Tdap and Td Vaccines (2 - Td or Tdap)07/03/2024 07/03/2014Influenza Opgcsgn3212/29/2024Pap SmearSV ( or age 60+ yrs) (1 - Risk 1-dose series)03/09/2025dult BMI Screening Tobacco Ceudpchmi02 Medical Devices Not on file Procedures Procedure NamePriorityDate/TimeAssociated DiagnosisCommentsEXTERNAL LAB ORDERS / BDHERVZXpmgpgu40/18/2025 4:22 PM ESTEXTERNAL LAB ORDERS / RESULTSRoutine 02/19/2025 3:15 PM EDTEXTERNAL LAB ORDERS / SWSWKRVWpxpwlg57/23/2025 3:13 PM EDT EXTERNAL LAB ORDERS / SPCYPEATaukdqh31/22/2025 1:58 PM EDTUS MFM OB FOLLOW-UP, 1 TQKHROkicbhw39/09/2025 2:10 PM EDT Multigravida of advanced maternal age in second trimester Antiphospholipid syndrome complicating , antepartum Gestational diabetes mellitus (GDM) in second trimester controlled on oral hypoglycemic drug Insulin controlled gestational diabetes mellitus (GDM) in second trimester AMA (advanced maternal age) multigravida 35+, second trimester Hypothyroidism, unspecified type from Last 3 Months Results * External Lab Orders / Results (03/17/2025 4:22 PM EST) Only the most recent of4 resultswithin the time period is included. Narrative Authorizing ProviderResult TypeResult StatusNot In System Ref ProvLAB ORDERABLES Final ResultPerforming OrganizationAddressCity/State/ZIP CodePhone Number MANUALLY TRANSCRIBED RESULTS * US MFM OB FOLLOW-UP, 1 FETUS (02/05/2025 2:10 PM EDT)Anatomical Region LateralityModalityOB-GYNUltrasoundSpecimen (Source)Anatomical Location / LateralityCollection Method / VolumeCollection TimeReceived Time02/05/2025 1:21 PM EDT Narrative 02/06/2025 5:22 PM EDT NAME: ??JUSTICE LEUNG : 1985 SEX: F Accession Number: [id number] ORDERING PHYSICIAN: MYA MASSEY REFERRING PHYSICIAN: MYA MASSEY Coding Procedures ? 32065: Ultrasound, uterus, real time with image documentation, follow up,transabdominal ? approach per fetus ? 27260: Echocardiography, , cardiovascular system, real time with image documentation (2D), with or ? without M-mode recording; follow-up or repeat study Indication Screening for follow-up survey, Screening for congenital cardiac abnormality , Gestational diabetes, AMA- Supervision of elderly , Supervision of high risk -(MOB son - hypospadia, MOB -son - laryngomalacia ), Obesity in , Hypothyroidism. History OB History ? 7. Para 3 ? [id number] Current Cell free DNA ?Low Risk analysis [...] (oz) ? 4 oz EFW by: ?Hadlock (DQY-SB-WZ-FL) Extended Tibia ??46.0 mm 28w 0d 68% [...] Heart/Thorax: 4-chamber view. RVOT view. 3-vessel view. 9-tchjjy-ndvxdow view. Great vessels. ? Right lung. Left [...] previously RVOT view ?normal 3-vessel view ??normal 6-yyrhbm-uyjonfu view ??normal Aortic arch view ? normal [...] MVP measures 6.7 cm. Recommendations Please see [facility] recommendations from prior clinical and/or ultrasound report documentation. anatomic survey is incomplete (suboptimal spine images) due to late gestational age and suboptimal visualization. Patient is not scheduled to return for additional ultrasound. Please reschedule for specific concerns or indications. Subsequent follow up or other follow up as clinically determined by primary OB provider unless otherwise specified by [facility]. Results forwarded to ordering provider so they can follow up with the patient as necessary. Procedure Note Lala Gross MD - 02/06/2025 NAME: JUSTICE LEUNG : 1985 SEX: F Accession Number: [id number] ORDERING PHYSICIAN: MYA MASSEY REFERRING PHYSICIAN: MYA MASSEY Coding Procedures 27979: Ultrasound, uterus, real time with image documentation, follow up, transabdominal approach per fetus 96009: Echocardiography, , cardiovascular system, real timewith image documentation (2D), with or without M-mode recording; follow-up or repeat study Indication Screening for follow-up survey, Screening for congenital cardiacabnormality , Gestational diabetes, AMA- Supervision of elderly , Supervision of high risk -(MOB son - hypospadia, MOB -son - laryngomalacia ), Obesity in , Hypothyroidism. History OB History 7. Para 3 [id number] Current Cell free DNA Low Risk analysis [...] EFW (oz) 4 oz EFW by: Hadlock (ECI-FC-YA-FL) Extended Tibia 46.0 mm 28w 0d 68% [...] Heart/Thorax: 4-chamber view. RVOT view. 3-vessel view. 2-vtmrac-abztyuxonlv. Great vessels. Right lung. Left lung. Diaphragm. [...] previously RVOT view normal 3-vessel view normal 4-jhincr-kqafbdz view normal Aortic arch view normal Ductal [...] MVP measures 6.7 cm. Recommendations Please see M recommendations from prior clinical and/or ultrasoundreport documentation. [...] necessary. Authorizing ProviderResult TypeResult StatusCorey R Montez DOI US ORDERABLES Final Result from Last 3 Months Insurance Care Teams Team MemberRelationshipSpecialtyStart DateEnd Date Evans Casas DO PCP - GeneralFamily Medicine07/07/19
--- OUTSIDE RECORDS SUMMARY | 2025-04-08 20:04 | XMS_ITS | Clinical Summary ---
Author Organization [facility] Address [address] [place] [address] Care Team Providers Care Groundwater Monitoring Technician Name Role Phone Evans Casas MD Primary Care Provider Allergies Active AllergyReactionsCriticalityNoted DateCommentsCiprofloxacinGI intolerance 04/19/2023iprofloxacin-Fluocinolone Pf05/19/2019 Other Reaction(s): Other: See Comments Dizziness, weakness sweating Slxllmu0609/10/2017 Other Reaction(s): GI Disturbance, GI Upset Diarrhea Diarrhea Lactose Intolerance (Gi)11/15/2023 Other Reaction(s): Illness Cbirdbjiszp65/06/2021 Other Reaction(s): Other (See Comments) LkaghAlbccHtv45/26/2018 seasonal Other Reaction(s): Other (See Comments) Medications MedicationSigDispense QuantityRefillsLast FilledStart DateEnd DateStatus Multiple Vitamin (Multi-Vitamin) tablet Take 1 tablet by mouth in the morning.Active levothyroxine (Synthroid) 25 MCG tablet Indications:Abnormal TSHTake 1 tablet (25 mcg) by mouth in the morning. Take before meals. 30 tablet 110//022205//6Active enoxaparin (Lovenox) 40 MG/0.4ML injection 1 (one) time each day at the same timeActive docusate sodium (Colace) 50 MG capsule Take 100 mg by mouth in the morning and 100 mg before bedtime.Active polyethylene glycol, PEG, 3350 (Glycolax) 17 GM/SCOOP powder Take 17 g by mouth DailyActive Alcohol Swabs (Alcohol Prep Pad) 70 % pads Indications:Second trimester ([facility]),13 weeks gestation of ([facility]),Multigravida of advanced maternal age in second trimester ([facility]), Gestational diabetes mellitus (GDM), antepartum, gestational diabetes method of control unspecified([facility]),Elevated glucose tolerance testApply 1 Pad topically Daily Use four times daily to check FSBS. 150 each 5Active Blood Glucose Monitoring Suppl (D-Me-Mover Glucometer) w/Device kit Indications:Second trimester ([facility]),13 weeks gestation of ([facility]),Multigravida of advanced maternal age in second trimester ([facility]), Gestational diabetes mellitus (GDM), antepartum, gestational diabetes method of control unspecified([facility]),Elevated glucose tolerance test1 kit Daily Use [...] (GDM), antepartum, gestational diabetes method of control unspecified([facility])Take 3 tablets (1,500 mg) by mouth in the evening. Take with meals Do not crush, chew, or split. 90 tablet 5Active Active Problems ProblemNoted DateDiagnosed DateH/O loss01/05/2025Multigravida of advanced maternal age in second trimester ([facility])01/05/2025Thyroid ilfqcbj8501/05/2025 Referred otalgia of right ear11/19/2023LPRD (laryngopharyngeal reflux disease) 11/19/2023cute on chronic vesicular eczema of hands and feet11/15/2023lood pressure elevated without history of HTN11/15/2023MI 37.0-37.9, adult11/15/2023 Cold kpjrnvczxun56/18/2024eviated zfiarh0411/15/2023ry mouth11/15/2023Elevated blood pressure txasmzh5911/15/2023Environmental erzrvhkyy62/18/2024H/O: mdfiagbwbcskxh82/18/2024History of znflgx6711/15/2023History of cerebrovascular yagbhpkk42/18/2024 Overview (11/15/2023): reported by pt - related to antiphospholipid syndrome History of COVID-19011/15/2023History of gestational uxndsncf81/18/2024History of kidney xaekai2011/15/2023Hx of iron deficiency gbagnt3911/15/2023Immunization not carried out because of patient edlmxiau19/18/2024Iron hblhrxlfni29/18/2024 Irregular uterine skvbtexe88/18/2024Morbid ovjmqnr8311/15/2023Nasal polyps 11/15/2023Non-ndfarf3111/15/2023OSA (obstructive sleep apnea)11/15/2023aresthesia of bilateral legs11/15/2023re-lmmbqhoh48/18/2024Right lower quadrant pain 4Right otitis duzcyjd6411/15/2023Salivary gland ajievfhp15/18/2024Snoring 11/15/2023bdominal pain4Acute bronchitis due to yjanxyjur43/13/2024 Ztcsgwh0506/12/2023ysfunction of eustachian tube06/12/20236202Mupgmjg77/13/2024 Ciahymjxhwyb26/13/2024Inhalation otqsve4006/12/2023Lactation problem ([facility]) 4Psychogenic hyhwctqxuasdmqrp47/13/2024Suspected severe acute respiratory syndrome coronavirus 2 (SARS-CoV-2) camzmvyvs51/13/2024Hypoglycemia 06/12/2023rimary hypercoagulable state ([facility])08/01/2022estational diabetes mellitus (GDM), antepartum ([facility])01/26/2022Genitourinary azzqfppe23/22/2022 Muscle narhejqwteisz19/22/2022nticoagulant long-term use02/22/2020 Cerebrovascular accident (CVA) due to stenosis of middle cerebral artery 02/22/2020Anemia complicating childbirth ([facility])01/16/2020First degree perineal laceration during delivery ([facility])01/16/2020Acute posthemorrhagic usztkw9701/16/2020Other immediate hemorrhage ([facility])01/16/2020 Personal history of urinary (tract) aacrqgbnhf74/18/2020Single live ([facility])01/15/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 ([facility])01/08/2020Pruritus, hcuidxzaeyn31/04/2020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)12/30/201932 weeks gestation of ([facility])11/28/2019Thrombocytopenia, gqxjgydyrgb31/23/2020Other general symptoms and signs10/28/2019Urinary tract kpwahsmvd63/18/2020 Cvxdgwgypluh76/28/2020SVT (supraventricular tachycardia)08/26/2019 Antiphospholipid antibody syndrome ([facility])07/07/2019Other bacterial infections of unspecified site06/27/2019Less than 8 weeks gestation of ([facility]) 06/05/2019Encounter for supervision of normal , unspecified, first trimester ([facility])05/29/2019Cerebral infarction, rupwijujdjp16/17/2020 Deficiency of other specified B group kpuqoyhl50/17/1068Izyubyhjgtyj01/17/2020 Unspecified condition associated with female genital organs and menstrual cycle 05/09/2019Other specified noninflammatory disorders of tutxfn4402/21/2019Frequency of rsgmppzwaib98/23/2019Unspecified ovarian cyst, right side02/06/2019 Tvdioiotauu16/09/2019Coagulation defect, unspecified ([facility])02/05/2019 Dizziness and /09/2019Long term (current) use of antithrombotics/rzipowtfbuyri76/09/2019Other acute postprocedural pain02/03/2019 Pelvic and perineal pain02/01/2019Syncope and hhbjwkbu93/04/2019Raised antibody titer09/25/2017Migraine without aura and without status migrainosus, not etbdlwhiecf99/16/2018Antiphospholipid antibody grwvmnfi39/14/2018Fatigue 12/29/2016Idiopathic progressive akwnvbefng90/01/2017Pain in joint12/29/2016 Estimated Date of DpttkjkwGxqnszhzVcg32/05/2026Based on last menstrual period of 07/28/2024 Encounters DateTypeDepartmentCare UmqlTbcgzfunzvb47/10/2025 1:40 PM ESTRoutine [facility] [place] [phone] Mya Herrmann, DO 36 weeks gestation of ([facility]); Third trimester ([facility]-HCC); Anemia complicating childbirth ([facility]); Anticoagulant long-term use; Antiphospholipid antibody positive; Antiphospholipid antibody syndrome ([facility]); Thyroid ppjazri1904/08/2025amboo [place] [phone] Mya Herrmann, DO 04/02/2025linisync Result Encounter [facility] External Department Unsolicited Mya Herrmann, DO 03/25/2025 11:10 AM ESTRoutine [facility]OMJaylan [facility] [place] [phone] Mya Herrmann, DO Third trimester ([facility]HS-HCC); 34 weeks gestation of ([facility]HCC); Anemia complicating childbirth ([facility]); Anticoagulant long-term use; Antiphospholipid antibody positive; Antiphospholipid antibody syndrome ([facility]); Thyroid kbbraeb8203/25/2025linisync Result Encounter [facility] External Department Unsolicited Mya Herrmann, DO 5Bambramon flowsheet [facility]OMJaylan [facility] [place] [phone] Mya Herrmann, DO 5[place] [phone] Mya Herrmann, DO 03/19/2025linisync Result Encounter [facility] External Department Unsolicited Mya Herrmann, DO 03/19/2025linisync Result Encounter [facility]OM[facility] External Department Unsolicited Mya Herrmann, DO 5Clinisync Result Encounter [facility]OMS External Department Unsolicited Mya Herrmann, DO 03/10/2025 9:50 AM ESTRoutine [facility] Piyush COLVIN [address] [place] [phone] Mya Herrmann, DO 32 weeks gestation of ([facility]); Third trimester ([facility]); Anemia complicating childbirth ([facility]); Anticoagulant long-term use; Antiphospholipid antibody positive; Blood pressure elevated without history of HTN; Coagulation defect, unspecified ([facility]); Antiphospholipid antibody syndrome ([facility]); Thyroid disease; Multigravida of advanced maternal age in third trimester ([facility])03/10/2025 Bamboo flowsheet [facility] Piyush ZELAYAN [address] [place] [address] Mya Herrmann, DO 5Clinisync Result Encounter [facility]OM[facility] External Department Unsolicited Mya Herrmann, DO 03/04/2025bstract [facility] Piyush [address]VIN [address] [place] [address] Mya Herrmann, DO 03/03/2025Patient Outreach [facility][NOTE 3] [address] [place] [address] Petra Whitmore LPN 02/27/2025linisync Result Encounter NOMS External Department Unsolicited Mya Herrmann, DO 02/23/2025 9:00 AM EDTRoutine [facility] Piyush COLVIN [address] [place] [address] Mya Herrmann, DO Third trimester ([facility]); 30 weeks gestation of ([facility])02/23/2025amboo flowsheet [facility] Piyush COLVIN [address] [place] [address] Mya Herrmann, DO 10/24/2025Clinisync Result Encounter [facility] External Department Unsolicited Mya Herrmann, DO 02/20/2025linisync Result Encounter [facility] External Department Unsolicited Mya Herrmann, DO 02/17/2025linisync Result Encounter [facility] External Department Unsolicited Mya Herrmann, DO 02/17/2025bstract [facility] [address] [place] [address] Mya Herrmann, DO 02/09/2025 10:30 AM EDTRoutine [facility] [address] [place] [address] Mya Herrmann, DO Third trimester ([facility]); 28 weeks gestation of ([facility]); Anemia complicating childbirth ([facility]); Anticoagulant long-term use; Antiphospholipid antibody positive; Blood pressure elevated without history of HTN; Coagulation defect, unspecified ([facility])02/09/2025bstract [facility] [address] [place] [address] Mya Herrmann, DO 02/03/2025Patient Outreach [facility][NOTE 3] [address] [place] [address] Petra Whitmore LPN 01/21/2025Telephone [facility] [address] [place] [address] Celia Keith NP 01/19/2025 9:00 AM EDTRoutine [facility] [address] [place] [address] Mya Herrmann, DO Second trimester ([facility]); 25 weeks gestation of ([facility]); Gestational diabetes mellitus (GDM), antepartum, gestational diabetes method of control unspecified([facility]); Anticoagulant long-term use; Antiphospholipid antibody positive; Antiphospholipid antibody syndrome ([facility])01/19/2025bstract [facility] [address] [place] [address] Mya Herrmann DO 01/15/2025Telephone [facility] [address] [place] [address] Lala Hess MA from Last 3 Months Family History Medical HistoryRelationNameCommentsCerebrovascular AccidentFatherDiabetesFather Heart problemsMaternal GrandfatherMental illnessMaternal GrandmotherCancer Paternal GrandfatherDiabetesPaternal GrandfatherCancerPaternal Grandmother DiabetesPaternal GrandmotherDiabetesSisterRelationNameStatusCommentsFather Maternal GrandfatherMaternal GrandmotherPaternal GrandfatherPaternal Grandmother Sister Social History Tobacco UseTypesPacks/DayYears UsedDateSmoking Tobacco: NeverSmokeless Tobacco: Never Tobacco Cessation:Counseling Given: Not Answered Alcohol UseStandard Drinks/WeekCommentsNever0 (1 standard drink = 0.6 oz pure alcohol)PHQ-2AnswerDate RecordedPatient Health Questionnaire-2 Xfaib76705/03/2024 Estimated Date of LgqnslcuEezueizhAof09/05/2026ased on last menstrual period of 07/28/2024Sex and Gender InformationValueDate RecordedSex Assigned at BirthNot on fileLegal ZljZbhusk86/15/2023 11:19 PM EDTGender IdentityNot on file Sexual OrientationNot on file Last Filed Vital Signs Vital SignReadingTime TakenCommentsBlood Iatkatdk026/7804/08/2025 2:05 PM EST Pulse--Temperature--Respiratory Rate--Oxygen Saturation--Inhaled Oxygen Concentration--Mgoseo96.7 kg (211 lb)04/08/2025 2:05 PM PIGGsrkjo071.6 cm (5' 6 )11/19/2023 1:48 PM EDTBody Mass Index34.0611/19/2023 1:48 PM EDT Plan of Treatment DateTypeDepartmentCare Team (Latest Contact Info)Jqxdnxczihq80/17/2025 1:50 PM ESTRoutine [facility] COLV[facility] [address] [place] [phone] Mya Herrmann, DO [address] [place] [address] Health MaintenanceDue DateLast DoneCommentsHPV/Suxevl3910/22/2015COVID-19 Vaccine (2024- season)2024Influenza Vaccine (#1)2024ervical Cancer Grxsjkriq79/18/2025Pap Smear2Pneumococcal Vaccine: Pediatrics (0 to 5 Years) and At-Risk Patients (6 to 64 Years)Aged OutNo longer eligible based on patient's age to complete this topic Procedures Procedure NamePriorityDate/TimeAssociated DiagnosisCommentsPOCT URINALYSIS BYFKJFRDDeufuek39/10/2025 2:12 PM EST 36 weeks gestation of ([facility]) Third trimester ([facility]) US OB BPP W NON-SDYCZA1904/02/2025 8:01 PM EST US OB BPP W NON-FDFPTQ0003/25/2025 8:58 PM EST POCT URINALYSIS HVDUNMVXMtwlgdi84/26/2025 11:31 AM EST Third trimester ([facility]) US OB BPP W NON-HNRXCI0603/19/2025 11:51 PM EST US OB LMUQWE5603/19/2025 11:51 PM EST US OB BPP W NON-MXEUGB9303/13/2025 7:55 AM EST POCT URINALYSIS FOGEHNKTQdegigc06/11/2025 10:06 AM EST 32 weeks gestation of ([facility]) Third trimester ([facility]) US OB BPP W NON-UGUIOH7203/06/2025 8:10 AM EST US OB BPP W NON-UYKEPA7202/27/2025 10:53 AM EDT POCT URINALYSIS XGFNQSEQRrjmtva66/27/2025 9:38 AM EDT 30 weeks gestation of ([facility]) US OB ETQLAR5302/20/2025 8:37 AM EDT US OB BPP W NON-TRQNLN9702/20/2025 8:37 AM EDT ALL THYROID STIM TYSSAJJZjlibll55/21/2025 1:31 PM EDT ALL CBC WITH AUTO MKQLOketyec15/21/2025 1:31 PM EDT POCT URINALYSIS XHTAFJQOWxltlaw34/13/2025 10:55 AM EDT 28 weeks gestation of ([facility]) POCT URINALYSIS YARENAVJGginkni63/22/2025 9:33 AM EDT Second trimester ([facility]) PAP ADHMRKhoygtc72/18/2022 12:00 AM EDTfrom Last 3 Months or Most Recently Relevant to Health Maintenance Results * (ABNORMAL) POCT urinalysis dipstick manually resulted (04/08/2025 2:12 PM EST) Only the most recent of6 resultswithin the time period is included. ComponentValueRef RangeTest MethodAnalysis TimePerformed AtPathologist Signature Color, UAYellowClarity, UAClearGlucose, UANegativeNegative - 2000(110) ++++ mg/dLBilirubin, UANegativeNegative - 4(70) +++ mg/dLKetones, UAPositiveNegative - 160(16) ++++ mg/dLSpec Grav, UA1.0101 - 1.03Blood, UANegativeNegative - 50 Max/mcLpH, UA6.05 - 9Protein, UANegativeNegative - 2000(20) ++++ mg/dL Urobilinogen, UA1.00.2 - 12 mg/dLLeukocytes, UANegativeNegative - 500+++ John/mcL Nitrite, UANegativeNegative - PositiveSpecimen (Source)Anatomical Location / LateralityCollection Method / VolumeCollection TimeReceived GeqyVrsbo40/10/2025 2:12 PM EST Narrative Authorizing ProviderResult TypeResult StatusCorey Montez DOPOINT OF CARE TEST ENTER/EDIT ORDERABLESFinal Result * US OB BPP W NON-STRESS (04/02/2025 8:01 PM EST) Only the most recent of7 resultswithin the time period is included. Anatomical RegionLateralityModalityOtherSpecimen (Source)Anatomical Location / LateralityCollection Method / VolumeCollection TimeReceived Time04/02/2025 8:01 PM EST Narrative 04/02/2025 8:04 PM EST [facility] ?[address] ? [place] [address] ? Ultrasound Report ? Signed ? Patient: JUSTICE,MADHU S ?MR#: [id number] ?? : 1985 ?Acct:[id number] ?? Age/Sex: 39 / F ?ADM Date: 04/02/25 ?? Loc: [facility] ??250-1 ? Attending Dr: Mya Herrmann D.O. ? Ordering Physician: Mya Herrmann D.O. ?? Date of Service: 04/02/25 ?? Procedure(s): US OB BPP w non-stress ?? Accession Number(s): [id number] ? cc: Mya Herrmann D.O.; Physician,Non-Staff M.D. ? [facility] ? [address] ? [place] [address] ? Patient Name: ?? MADHU RENDON ? MRN: [facility]:[id number] ? date: 1985 ?Sex: F ?? Assigned Patient Location: [facility] ?? Current Patient Location: [facility] ?? Accession/Order Number: [id number] ?? Exam Date: 04/02/2025 ??19:15 ?Report Date: [...] Dictation Location: [facility]-PC-29 ? Electronically authenticated by: [id number] ??Y ?? Date: 04/02/2025 ??20:01 ? Dictated By: ?Mert Estrada M.D. ? Signed By: ?04/02/252003 ? DD/ 00 ? TD/TT: ? Band Edger: Procedure Note Radiology, Radiologist, - 04/02/2025 [place] [address] Ultrasound Report Signed Patient: MADHU RENDON SMR#: [id number] : 1985Acct:[id number] Age/Sex: 39 / FADM Date: 04/02/25 Loc: [facility] 250-[address]: Mya Herrmann D.O. Ordering Physician: Mya Herrmann D.O. Date of Service: 04/02/25 Procedure(s): US OB BPP w non-stress Accession Number(s): [id number] cc: Mya Herrmann D.O.; Physician,Non-Staff Tamia The [place] [id number] Patient Name: MADHU RENDON MRN: [facility]:[id number] date: 1985 Sex: F Assigned Patient Location: [facility] Current Patient Location: [facility] Accession/Order Number: [id number] Exam Date: 04/02/2025 19:15 Report Date: 04/02/2025 20:01 At the request of: MYA HERRMANN DO Procedure: US OB BPP w non-stress Ultrasound biophysical profile INDICATION: Gestational diabetes COMPARISON: 03/25/2025 FINDINGS AND IMPRESSION: Fetus in breech presentation. heart tore672 beats per minutes. SARAHI measuring 14.1 cm. Biophysical profile 12/05. Impression dictated by: Mert Estrada M.D. 04/02/2025 8:01 PM Dictation Location: [facility]-PC-29 Electronically authenticated by: [id number] Y Date: 0:01 Dictated By: Mert Estrada M.D. Signed By:04/02/252003 DD/ 00 TD/TT: Band Edger: Authorizing ProviderResult TypeResult StatusCorey Montez DOCLINISYNC IMAGINGFinal Result * US OB GROWTH (03/19/2025 11:51 PM EST) Only the most recent of2 resultswithin the time period is included. Anatomical RegionLateralityModalityOtherSpecimen (Source)Anatomical Location / LateralityCollection Method / VolumeCollection TimeReceived Time03/19/2025 11:51 PM EST Narrative 03/19/2025 11:53 PM EST [facility] ?[address] ? [place] [address] ? Ultrasound Report ? Signed ? Patient: JUSTICE,MADHU S ?MR#: [id number] ?? : 1985 ?Acct:[id number] ?? Age/Sex: 39 / F ?ADM Date: 03/19/25 ?? Loc: US ? Attending Dr: Mya Herrmann D.O. ? Ordering Physician: Mya Herrmann D.O. ?? Date of Service: 03/19/25 ?? Procedure(s): US OB growth ?? Accession Number(s): [id number] ? cc: Mya Herrmann D.O.; Physician,Non-Staff M.D. ? [facility] ? [address] ? [place] [address] ? Patient Name: ?? MADHU RENDON ? MRN: [facility]:[id number] ? date: 1985 ?Sex: F ?? Assigned Patient Location: US ?? Current Patient Location: ? Accession/Order Number: [id number] ?? Exam Date: 03/19/2025 ??19:20 ?Report Date: [...] M.D. ??03/19/2025 11:51 PM ? Dictation Location: [facility]--20 ? Electronically authenticated by: [id number] ??Y ?? Date: 03/19/2025 ??23:51 ? Dictated By: ?Robert Beltrán D.O. ? Signed By: ?03/19/253 ? DD/ 2351 ? TD/TT: ? Band Edger: Procedure Note Radiology, Radiologist, MD - 03/19/2025 [place] [address] Ultrasound Report Signed Patient: MADHU RENDON SMR#: [id number] : 1985Acct:[id number] Age/Sex: 39 / FADM Date: 03/19/25 Loc: US Attending Dr: Mya Herrmann D.O. Ordering Physician: Mya Herrmann D.O. Date of Service: 03/19/25 Procedure(s): US OB growth Accession Number(s): [id number] cc: Mya Herrmann D.O.; Physician,Non-Staff M.DLazara The [address] [address] Patient Name: MADHU RENDON MRN: [facility]:[id number] date: 1985 Sex: F Assigned Patient Location: US Current Patient Location: Accession/Order Number: [id number] Exam Date: 03/19/2025 19:20 Report Date: 03/19/2025 [...] Beltrán M.D. 03/19/2025 11:51 PM Dictation Location: [place] [address] Electronically authenticated by: [id number] Y Date: 3:51 Dictated By: Robert Beltrán D.O. Signed By:03/19/252352 DD/ 50 TD/TT: Band Edger: Authorizing ProviderResult TypeResult StatusCorey Montez DOCLINISYNC IMAGINGFinal [...] - 16.0 g/dL TBHTBH HCT34.6(L)36.0 - 48.0 %TBHT MCV90.681.0 - 99.0 fLTBHTB MCH31.726.7 - 34.0 pgTBHTBH MCHC35.029.9 - 35.2 g/dLTBHT RDW13.111.0 - 15.0 %TBHTBH UQC889 150 - 450 10 3/uLTBHTBH MPV9.79.5 - [...] Montez DOCLINISYNCFinal Result Performing OrganizationAddressCity/State/ZIP CodePhone Number [facility] * Pap Smear (02/14/2022 12:00 AM EDT)Specimen (Source)Anatomical Location / LateralityCollection Method / VolumeCollection TimeReceived TimeSwabCervical swab / Unknown Narrative Authorizing ProviderResult TypeResult StatusFazio Nurse [facility] Bcp ObLAB CYTOLOGY ORDERABLESFinal ResultPerforming OrganizationAddressCity/State/ZIP CodePhone Number EXTERNAL LAB from Last 3 Months or Most Recently Relevant to Health Maintenance Insurance Care Teams Team MemberRelationshipSpecialtyStart DateEnd Date Evans Casas MD [address] [place] [address] PCP - GeneralFamily Medicine11/07/23
== END 2025-04-08 19:58 | disposition home or self-care (01) ==
LOC: LAB 19:57
PROVIDERS: Visit Provider Obstetrics & Gynecology
DX: Z34.93 Encounter for supervision of normal pregnancy, unspecified, third trimester (principal); Z3A.36 36 weeks gestation of pregnancy
CPT/HCPCS: 87081

== ENCOUNTER 2025-04-09 19:07 | Outpatient (OUT) | payer MEDICAID, SELFPAY ==
--- NOTE | 2025-04-09 19:10 | US_ITS ---
[place] [id number] Patient Name: MADHU RENDON MRN: [facility]:[id number] date: 1985 Sex: F Assigned Patient Location: [facility] [facility] Current Patient Location: Accession/Order Number: [id number] Exam Date: 04/09/2025 19:15 Report Date: 04/09/2025 22:07 At the request of: MYA MASSEY DO Procedure: US OB BPP w non-stress Ultrasound biophysical profile INDICATION: Third trimester COMPARISON: 04/02/2025 FINDINGS AND IMPRESSION: Fetus in cephalic presentation. heart rate 167 beats per minutes. SARAHI measuring 10.9 cm. Biophysical profile 12/05. Impression dictated by: Mert Estrada M.D. 04/09/2025 10:07 PM Dictation Location: [place] [address] Electronically authenticated by: [id number] Y Date: 04/09/2025 22:07
--- OUTSIDE RECORDS SUMMARY | 2025-04-09 19:12 | XMS_ITS | CCD ---
Author Organization [facility] CliniSynh Care Team Providers Care Miner Pick Name Role Phone CROW MONGE Unavailable Unavailable BIBI CHRISTY Unavailable Unavailable ERIKA LONDON Attending Unavailab ERIKA Haddad Referring Unavailab Haseeb Chavez Attending Unavailable Crow Monge Referring Unavailable Humaira Gaviria MD Primary Care Provider Jonny Wilcox MD Unavailable [phone] Penelope CASAS Primary Care Physician [phone] Cheri Norwood Unavailable Unavailable Cosmo Elliott MD Unavailable Lauro RN, Davida Unavailable Penelope Casas Primary Care Provider PENELOPE CASAS Primary Care Unavailable PERVÍCTOR, FALGUNI C Referring Unavailable Humaira Gaviria MD Primary Care Provider Jonny Wilcox MD Unavailable Cosmo Elliott MD R Unavailable [phone] Lauro RN, Davida Unavailable Penelope Casas DO Primary Care Provider Jonny Wilcox MD P Unavailable [phone] Cosmo Elliott MD R Unavailable Lauro RN, Davida Unavailable [phone] Penelope Casas DO Primary Care Provider [...] Unavailable MONTEZ, DR ROQUE Primary Care Unavailable BARRE, DR ANGIE Luna Consulting Unavailable MONTEZ, DR [...] Attending Unavailable Brenden ROSARIO, Jonny Tsai Unavailable [phone] Lauro RN, Davida Unavailable Penelope Casas DO Primary Care Provider [phone] Penelope CASAS Admitting Unavailable KAPBEN, Penelope Tony [...] Unavailable Penelope Casas MD Primary Care Provider [phone] Wilton Herrmann DO Attending Provider Montez, Wilton Attending Unavailable Montez, Wilton Admitting Unavailable Gudimella, Anni Attending Unavailable Day, Anni Attending Unavailable KAPPenelope CONTRERAS Attending Unavailable KAPEBN, Penelope Tony Attending Unavailable [...] Unavailable Penelope Casas DO Primary Care Provider [phone] MONTEZ, Wilton R Attending Unavailable MONTEZ, Wilton [...] Unavailable Penelope Casas MD Primary Care Provider [phone] MONTEZ, Wilton R Admitting Unavailable MONTEZ, Wilton [...] Care Unavailable TORI, ALISA Attending Unavailable MONTEZ, WLITON R Referring Unavailable KAPLE, PENELOPE A Primary [...] of OnsetReaction(s) Facility (20 sources)Ciprofloxacin; Translations: [ciprofloxacin]Drug Ejgmvac49-49-5841 Other: See Comments, Unknown, Numbness and tingling sensation of skin (finding), Nausea (finding), Other (See Comments), GI [facility], [facility] (20 sources)Ciprofloxacin / fluocinolone; Translations: [CIPROFLOXACIN-FLUOCINOLONE]Drug Ovmcmww75-75-2897Ingpv: See CommentsThe [facility] (20 sources)cow milk allergenic extract; Translations: [MILK]Drug Allergy 03-42-2207Tgrjo: See [facility] Work Phone: (20 sources)Lactalbumin; Translations: [LACTALBUMIN]Drug Dsvarzf51-18-0975 Unknown, GI Upset, Other (See Comments)[facility] (20 sources)Lactose; Translations: [LACTOSE]Drug Pygosqu62-75-3241WV Upset, GI DisturbanceThe [facility] Hospital (20 sources)MilkDrug Qqaenhv47-81-9353Vjjdr: See Comments, Other (See Comments) [facility] (6 sources)PenicillinsDrug Eaggbfo73-96-5889ExzcbaqWvhwggftb Clinic (20 sources)Seasonal allergy; Translations: [SEASONAL ALLERGIES]Allergy to ouffgazbh85-94-3217HS Upset, Other: See [facility] Work Phone: (20 sources)Milk Products; Translations: [Milk Products]Drug allergyIllness (finding)[facility] (20 sources)Ciprofloxacin / fluocinoloneDrug Jgwdfsy00-01-9267Iwcpc (See Comments)[facility] Work Phone: (1 source)Seasonal allergyPropensity to adverse reactions to svkammrsx88-08-3215 Other (See Comments)[facility] Work Phone: (1 source)Milk-Related CompoundsPropensity to adverse reactions to drug 07-29-1764Nabvu (See Comments)[facility] Work Phone: (2 sources)PenicillinsDrug Feuuymq18-69-0690FqoxxftYvjbafsms Clinic (1 source)CiprofloxacinDrug Jzvnflz29-91-1307[facility] (20 sources)Lactose (non-medical use)Propensity to adverse gmolowbct20-25-4302 [facility] (20 sources)Lactose (non-medical use)Drug Xwzqbcj59-47-0218UHHJ [facility] (20 sources)OctacosanolDrug Msxpywbxtwj58-06-0009VTYF [facility] (20 sources)OtherAllergy to frkxywpyj71-08-6015UdedpEAAP [facility] Work Phone: (3 sources)MILK CONTAINING PRODUCTS (DAIRY); Translations: [MILK CONTAINING PRODUCTS (DAIRY)]Propensity to adverse reactions to drug (disorder)05-25-2017 [facility] Medications Current Medications MedicationDrug Class(es)DatesSig (Normalized)Sig (Original)acetaminophen 300 mg / codeine phosphate 30 mg oral tablet (1 source)Opioid AgonistStart: 18-14-4195lmzxeayalutzw-codeine (TYLENOL #3) 300- 30 MG per tabletAlbuterol (Eqv-ProAir HFA) 90 mcg/inh inhalation aerosol (6 sources)Start: 88-57-1493sgbb 2 puff(s) by inhalation every six hours Albuterol (Eqv-ProAir HFA) 90 mcg/inh inhalation aerosol 2 puff(s), Inhalation, q6hr, 1 EA, Refill(s) 5, [facility], 168, cm, 02/02/24 14:43:00 EDT, Height/Length Dosing, 101.1, kg, 02/02/24 14:43:00 EDT, Weight Dosing Start Date: 02/02/24 Status: Orderedazithromycin 250 mg oral tablet (20 sources)Macrolide AntimicrobialStart: 09-08-2024 End: 41-69-9857arxlmgazgdjm (Zithromax Z-Jonny) 250 MG tablet Indications: 5 weeks gestation of ([facility]) As directed 6 tablet 09/08/2024 10/30/2024 Discontinued (Therapy completed)Start: 06-19-2024 End: 14-98-5340Deetxgxts 250 mg Tab = 1 packet(s), Oral, As Directed, as directed on package labeling, X 5 day(s),# 6 tab(s), Refills(s) 1, Pharmacy: [facility], 168, cm, 06/09/24 14:03:00 EST, Height/Length Dosing, 98.4, kg, 06/19/24 16:19:00 EST, Weight Dosing Start Date: 06/19/24 Stop Date: 06/29/24 Status: OrderedStart: 04-21-2024 End: 47-45-5880bgkfoclurheb (Zithromax Z-Jonny) 250 MG tablet Indications: Upper respiratory tract infection, unspecified type As directed 6 tablet 04/21/2024 05/06/2024 Discontinuedazithromycin 250 mg Tab 5-day Dose Pack (Z-Jonny) (2 sources)Start: 02-02-2024 End: 56-48-0136vfjqrzzyjnzx 250 mg Tab 5-day Dose Pack (Z-Jonny) = 1 packet(s), Oral, As Directed, as directed on package labeling, X 5 day(s), # 6 tab(s), Refills(s) 0, Pharmacy: [facility], 168, cm, 02/02/24 14:43:00 EDT, Height/Length Dosing, 101.1, kg, 02/02/24 14:43:00 EDT, Weight Dosing Start Date:02/02/24 Stop Date: 02/07/24 Status: OrderedBlood Glucose Monitoring Suppl (D-Care Glucometer) w/Device kit (20 sources)Start: 10-30-2024 End: 60-50-4392Ylxhn Glucose Monitoring Suppl (D-Care Glucometer) w/Device kit Indications: Second trimester ([facility]) , 13 weeks gestation of ([facility]) , Multigravida of advanced maternal age in second trimester ([facility]) , Gestational diabetes mellitus (GDM), antepartum, gestational diabetesmethod of control unspecified ([facility]) , Elevated glucose tolerance test 1 kit Daily Use four times daily to check FSBS. In the morning prior to breakfast & 1 hour after each meal for a total fu3qkxho daily. 1 kit 10/30/2024 10/30/2025 Activeblood-glucose meter (BLOOD GLUCOSE MONITORING) kit (20 sources)blood-glucose meter (BLOOD GLUCOSE MONITORING) kit 1 each by other route in the morning. Use to check blood sugar 4 times daily . Activeblood- glucose sensor (FREESTYLE JENIFER 3 PLUS SENSOR) device (13 sources)Start: 29-28-9268shql 2 doses by mouth onceblood-glucose sensor (FREESTYLE JENIFER 3 PLUS SENSOR) device Indications: Gestational diabetes mellit us (GDM) in second trimester controlled on oral hypoglycemic drug Wear for 15 days and change 2 each 6 12/26/2024 Activecephalexin 500 mg oral tablet (20 sources)Cephalosporin AntibacterialStart: 08-19-2021 End: 37-49-7794cfbo 1 tablet by mouth twice dailycephalexin 500 mg oral tablet 500 mg = 1 tab(s), Oral, BID, X 10 day(s), # 20 tab(s), Refills(s) 0,Pharmacy: [facility], 168, cm, 08/19/21 [...] suspension (2 sources)Corticosteroid, Quinolone AntimicrobialStart: 10-23-2023 End: 19-22-5225Kigsfvdg 0.3%-0.1% Susp-Otic 4 drop(s), Otic, BID for 7 day(s), 7.5 mL, Refill(s) 0, [facility]/pharmacy #[id number], 168, cm, 10/23/23 16:55:00 EDT, Height/Length Dosing, 106.2, kg, 10/23/23 16:55:00 EDT, WeightDosing Start Date: 10/23/23 Stop Date: 10/30/23 Status: OrderedStart: 02-15-2023 End: 31-90-5577Tbclafoq 0.3%-0.1% Susp-Otic 4 drop(s), Otic, BID for 7 day(s), 7.5 mL, Refill(s) 0, Only use if drainage or pain of ear shake well before using, [facility], 168, cm, 02/15/23 [...] (20 sources)Low Molecular Weight HeparinStart: 01-19-2025 End: 55-16-4412Nisvcvewyk Sodium (Lovenox) 40 MG/0.4ML solution prefilled syringe Indications: Anticoagulant long-term use , Antiphospholipid antibody positive , Antiphospholipid antibody syndrome ([facility]) Inject 40 mg as directed Daily for 30 doses 12 mL 3 01/19/2025 02/18/2025 ActiveStart: 01-09-2025 End: 44-73-0266uqashg 0.4 mL by subcutaneous injection onceenoxaparin (LOVENOX) 40 mg/0.4 mL syringe Indications: Antiphospholipid syndrome Inject 0.4 mL (40 mg total) under the skin Every 12 (twelve) hours. 24 mL 6 01/13/2025 ActiveStart: 05-03-2023 End: 66-95-1152oepjkohdgs (LOVENOX) 40 mg/0.4 mL Indications: Primary hypercoagulable state (HCC) , CVA, old, speech/language deficit , Cerebral hyponatremia INJECT 1 SYRINGE SUBCUTANEOUSLY EVERY 24 HOURS 90 mL 10/29/2024 ActiveStart: 04-06-2022 End: 16-61-4704liohlmbeaz (LOVENOX) 40 mg/0.4 mL Indications: Primary hypercoagulable state (HCC) , CVA, old, speech/language deficit , Cerebral hyponatremia INJECT THE CONTENTS OF ONE SYRINGE (0.4 ML) SUBCUTANEOUSLY EVERY 24 HOURS 90 mL 2 09/28/2022 ActiveStart: 09-06-2021 End: 26-73-2292bhbtwb 0.8 mL by subcutaneous injection twice dailyenoxaparin (LOVENOX) 80 mg/0.8 mL Indications: Primary hypercoagulable state (HCC) Inject 0.8 mL subcutaneously twice daily. 48 mL 5 09/06/2021 10/06/2021 ActiveStart: 04-07-2020 End: 12-55-2022dykejd 0.4 mL by subcutaneous injection every twenty-four hours enoxaparin (LOVENOX) 40 mg/0.4 mL Indications: Primary hypercoagulable state (HCC) , CVA, old, speech/language deficit , Cerebral hyponatremia Inject 0.4 mL subcutaneously every 24 hours. 36 mL 0 12/30/2021 03/30/2022 Active End: 05-44-3373cblbeh 40 mg by subcutaneous injection in the [...] enoxaparin (LOVENOX) 40 MG/0.4ML injection (1 source)Start: 95-74-2977sqenojwiav (LOVENOX) 40 MG/0.4ML injection Inject 0.4 mLs into the skin daily 16 mL 1 02/20/2020 Activeenoxaparin (Lovenox) 40 MG/0.4ML injection (20 sources)enoxaparin (Lovenox) 40 MG/0.4ML injection 1 (one) time each day at the same time Activefamotidine 40 mg oral tablet (20 sources)Histamine-2 Receptor AntagonistStart: 13-30-8843ogof 1 tablet by mouth once daily at bedtimePepcid 40 mg Tab 40 mg = 1 tab(s), Oral, Once a day (at bedtime), # 90 tab(s), Refills(s) 4, Pharmacy: [facility], 168, cm, 06/30/24 8:36:00 EST, Height/Length Dosing, 97.2, kg, 06/30/24 8:36:00 EST, Weight Dosing Start Date: 06/30/24 Status: Ordered Quantity: 90.0 Unit: tab(s) Repeat number: 5Start: 11-29-2023 End: 24-25-6331asze 1 tablet by mouth once dailyfamotidine (PEPCID) 20 mg tablet Take 1 tablet by mouth once daily. To take prior to infusion 1 tablet 11/29/2023 10/28/2024 Discontinued (Discontinued by Patient)Start: 11-29-2023 End: 94-65-3259qnaykqdass 20 mg injection (PEPCID)fluconazole 150 mg oral tablet (6 sources)Azole AntifungalStart: 57-26-0700Zuodtczo 150 mg Tab 150 mg = 1 tab(s), Oral, q7day, # 4 tab(s), Refills(s) 1, Pharmacy: [facility], 168, cm, 06/09/24 14:03:00 EST, Height/Length Dosing, 98.4, kg, 06/19/24 16:19:00 EST, Weight Dosing Start Date: 06/19/24 Status: Ordered Quantity: 4.0 Unit: tab(s) Repeat number: 2 Indication: Candidiasis, unspecifiedfluticasone propionate 0.05 mg/actuat metered dose nasal spray (20 sources)CorticosteroidStart: 11-20-2024 End: 69-21-4367brnh 1 spray(s) nasal route once dailyfluticasone (Flonase) 50 MCG/ACT nasal spray Indications: Sinus headache Administer 1 spray into each nostril Daily Shake gently. Before first use, prime pump. After use, clean tip and replace cap. 16 g 3 11/20/2024 11/20/2025 ActiveStart: 00-19-0201Oizwgzz 0.05 mg/inh Wing 2 spray(s), Nasal, Daily, 16 gram, Refill(s) 11, each nostril, [facility]/pharmacy #[id number], 168, cm, 06/09/24 14:03:00 EST, Height/Length Dosing, 99.1, kg, 06/09/24 14:03:00 EST, Weight Dosing Start Date: 06/09/24 Status: Ordered Quantity: 16.0 Unit: g Repeat number: 12Start: 59-46-7936Ijowmay 0.05 mg/inh Wing 2 spray(s), Nasal, Daily, 16 gram, Refill(s) 11, each nostril, [id number], 168, cm, 06/09/24 14:03:00 EST, Height/Length Dosing, 99.1, kg, 06/09/24 14:03:00 EST, Weight Dosing Start Date: 06/09/24 Status: OrderedStart: 71-63-5239Dokyhwg 0.05 mg/inh Wing 2 spray(s), Nasal, Daily, 16 gram, Refill(s) 0, each nostril Start Date: 08/03/23 Status: Orderedisopropyl alcohol 0.7 ml/ml medicated pad (20 sources)Start: 77-88-5832Pseuwgx Swabs (Alcohol Prep Pad) 70 % pads Indications: Second trimester ([facility]) , 13 weeks gestation of ([facility]) , Multigravida of advanced maternal age in second trimester ([facility]) , Gestational diabetes mellitus (GDM), antepartum, gestational diabetes method of control unspecified ([facility]) , Elevated glucose tolerance test Apply 1 Pad topically Daily Use four times daily to check FSBS. 150 each 3 10/30/2024 Activelevothyroxine sodium 0.025 mg oral tablet (20 sources)l-ThyroxineStart: 96-96-2106ppnwoablhrrvr 25 mcg (0.025 mg) Tab 25 mcg = 1 tab(s), Oral, Daily, Dr. Celaya, # 30 tab(s), Refills(s) 0 Start Date: 06/09/24 Status: Ordered Quantity: 30.0 Unit: tab(s) Repeat number: 1Start: 06-02-2024 End: 83-56-3916mvyd 1 tablet by mouth before mealtimelevothyroxine (Synthroid) 50 MCG tablet Indications: History of thyroid disease Take 1 tablet (50 mcg) by mouth in the morning. Take before meals. 30 tablet 11 06/02/2024 06/23/2024 DiscontinuedStart: 02-25-2024 End: 52-32-4435izua 1 tablet by mouth before mealtimelevothyroxine (Synthroid) 25 MCG tablet Indications: Abnormal TSH Take 1 tablet (25 mcg) by mouth in the morning. Take before meals. 30 tablet 11 06/23/2024 06/23/2025 ActiveStart: 08-24-2021 End: 56-70-5151ngofhyydoltyy (SYNTHROID) 25 mcg tablet Take 25 mcg by mouth. 0 08/24/2021 09/26/2023 Discontinued End: 85-64-9766sxea 3 tablets by mouth once dailylevothyroxine (Synthroid) 25 MCG tablet Take 75 mcg by mouth 1 (one) time each day at the same time05/06/2024 DiscontinuedComment on above:Take 25 mcg by mouth.Lovenox 40 mg/0.4 mL Injection (20 sources)Start: 82-13-9199zmtign 40 mg by subcutaneous injection every twenty-four hoursLovenox 40 mg/0.4 mL Injection 40 mg, SubCutaneous, q24hr, # 7 EA, Refills(s) 0, Blood Thinner Start Date: 04/07/20 Status: Ordered Quantity: 7.0 Unit: EA Repeat number: 1Start: 11-50-6114gqadcv 40 mg by subcutaneous injection every twenty-four hoursLovenox 40 mg/0.4 mL Injection 40 mg, SubCutaneous, q24hr, # 7 EA, Refills(s) 0, Blood Thinner Start Date: 04/07/20 Status: Djcwvoh22 hr metFORMIN hydrochloride 500 mg extended release oral tablet (20 sources)BiguanideStart: 39-84-3374tckYJWDCI XR (GLUCOPHAGE XR) 500 mg 24 hr tablet Take 500 AM and 1000 mg at night. 90 tablet 4 03/11/2025 ActiveStart: 01-19-2025 End: 32-84-9849cdux 3 tablets by mouth every twenty-four hours at mealtime metFORMIN XR (Glucophage-XR) 500 MG 24 hr tablet Indications: Gestational diabetes mellitus (GDM), antepartum, gestational diabetes method of control unspecified ([facility]) Take 3 tablets (1,500 mg) by mouth in the evening. Take with meals Do not crush, chew, or split. 90 tablet 3 01/19/2025 ActiveStart: 01-01-2025 End: 84-54-3181kecOREQFK XR (GLUCOPHAGE XR) 500 mg 24 hr tablet Take 1500 mg at night. 90 tablet 4 01/01/2025 03/11/2025 DiscontinuedStart: 12-17-2024 End: 32-14-4777fvbTXMUCL XR (GLUCOPHAGE XR) 500 mg 24 hr tablet Take 1000 mg at night. 90 tablet 4 12/17/2024 01/01/2025 DiscontinuedStart: 05-13-2024 End: 07-30-1314iple 2 tablets by mouth every twenty-four hours at mealtime metFORMIN XR (Glucophage-XR) 500 MG 24 hr tablet Indications: Insulin resistance Take 2 tablets (1,000 mg) by mouth in the evening. Take with meals Do not crush, chew, or split. 60 tablet 11 05/13/2024 06/02/2024 DiscontinuedStart: 11-27-2023 End: 75-09-8680ayla 1 tablet by mouth once dailymetFORMIN XR (Glucophage-XR) 500 MG 24 hr tablet Indications: Insulin resistance Take 1 tablet (500mg) by mouth 1 (one) time each day at the same time 30 tablet 11 09/18/2024 01/19/2025 DiscontinuedStart: 08-43-3985IxlKFNQNR (Eqv-Glucophage XR) 500 mg oral tablet, extended release 1,000 mg = 2 tab(s), Oral, Daily, Refills(s) 0 Start Date: 10/20/22 Status: Ordered Repeat number: 1Start: 03-26-2022 End: 46-75-0221hghKOJDWO XR (GLUCOPHAGE XR) 500 mg 24 hr [...] tablet by mouth once daily.polyethylene glycol 3350 79072 mg powder for oral solution (20 sources)Osmotic Laxativepolyethylene glycol (GLYCOLAX) 17 gram packet Take 17 g by mouth in the morning. ActivePolyethylene Glycols (4 sources)polyethylene glycol 3350 (MIRALAX PO) Take by mouth. ActivePRENATAL 19 29 mg iron- 1 mg tablet,chewable (20 sources)Start: 04-98-5299BLGALCGH 19 29 mg iron- 1 mg tablet,chewable Chew 1 tablet and swallow in the morning. 6 10/31/2018ActiveStart: 22-61-8463CSAGNQFX 19 29 mg iron- 1 mg tablet,chewable Chew 1 tablet and swallow daily. 6 10/31/2018 ActivePrenatal Vit-Fe Fumarate-FA ( PO) (1 source)Start: 09-51-2842Hjtentgv Vit-Fe Fumarate-FA ( PO) Take 1 tablet by mouth 0 10/31/2018 Activeprogesterone 200 mg oral capsule (20 sources)Progesteronetake 1 capsule by mouth in the morningprogesterone (PROMETRIUM) 200 mg capsule Take 1 capsule (200 mg total) by mouth in the morning. ActiveProgesterone 200 MG suppository (6 sources)Start: 09-18-2024 End: 83-03-5470Gvmoguralelz 200 MG suppository Indications: History of miscarriage Insert 200 mg into the vagina at bedtime Insert suppository vaginally every night at bedtime until 12 weeks gestation 30 suppository 3 09/18/2024 10/30/2024 Discontinued (Therapy completed)Start: 09-18-2024 End: 40-42-1596Bsgtcndyyijf 200 MG suppository Indications: History of miscarriage Insert 200 mg into the vagina at bedtime Insert suppository vaginally every night at bedtime until 12 weeks gestation 30 suppository 3 09/18/2024 12/17/2024 ActiveStart: 09-01-2024 End: 38-08-9453Pdwxmlvtncaa 200 MG suppository Indications: History of miscarriage Insert 200 mg into the vagina at bedtime Insert suppository vaginally every night at bedtime until 12 weeks gestation 30 suppository 2 09/01/2024 11/30/2024 Activeprogesterone vaginal suppository 200 mg (CPD) (4 sources)progesterone vaginal suppository 200 mg (CPD) Use 200 mg vaginally. Unwrap and insert as directed. Activeterconazole 4 mg/ml vaginal cream (3 sources)Azole AntifungalStart: 06-23-2024 End: 59-50-0869hgrivewvqiw (Terazol 7) 0.4 % vaginal cream Indications: Vaginal discharge Insert 1 applicator intothe vagina at bedtime for 7 days 45 g 06/23/2024 06/30/2024 ActiveVentolin HFA 90 mcg/inh Aerosol-Adpt (1 source)Start: 09-07-2024 End: 77-95-6639odxx 2 puff(s) by inhalation every six hours for wheezingVentolin HFA 90 mcg/inh Aerosol-Adpt 2 puff(s), Inhalation, q6hr for wheezing for 7 day(s), 8 gm, Refill(s) 0, [facility], 167, cm, 09/07/24 10:01:00 EDT, Height/Length Dosing, 96.4, kg, 09/07/24 10:01:00 EDT, Weight Dosing Start Date: 09/07/24 Stop Date: 09/14/24 Status: Ordered Quantity:8.0 Unit: g Repeat number: 1 Indication: Acute upper respiratory infection, unspecifiedVitamin D (20 sources)Start: 59-96-1117Tggcgus D 2,000 International_Unit, Oral, qWeek, Refills(s) 0 Start Date: 08/03/23 Status: Ordered Repeat number: 1Start: 17-20-9357Xfkwvsr D 2,000 International_Unit, Oral, qWeek, Refills(s) 0 Start Date: 08/03/23 Status: Ordered Completed/Discontinued Medications MedicationDrug Class(es)DatesSig (Normalized)Sig (Original)aspirin 81 mg chewable tablet (5 sources)Platelet Aggregation Inhibitor, Nonsteroidal Anti-inflammatory Drug End: 65-04-8669eedrbwy 81 MG chewable tablet Chew 81 mg in the morning. 05/06/2024 Discontinued1 ml dexamethasone phosphate 4 mg/ml injection (1 source)CorticosteroidStart: 11-29-2023 End: 59-08-4590camPPNXLxuwbj sodium phosphate 8 mg injection (DECADRON)3 ml insulin glargine 100 unt/ml pen injector (6 sources)Insulin AnalogStart: 12-03-2024 End: 12-15-2432vinzeqt glargine (LANTUS SOLOSTAR U-100 INSULIN) 100 unit/mL (3 mL) insulin pen Prime with 2 units then inject 4 units SQ into abd 15 mL 3 12/03/2024 12/17/2024 Discontinued (Allergic response)insulin isophane, human 100 unt/ml injectable suspension (10 sources)Start: 12-26-2024 End: 54-56-1285mfnh 8 [IU] by mouth once dailyinsulin NPH (HumuLIN N,NovoLIN N) 100 unit/mL injection Indications: Gestational diabetes mellitus (GDM) in second trimester controlled on oral hypoglycemic drug Inj sbq in abd 8 units nightly 10 mL 6 12/26/2024 02/06/2025 Discontinued (Patient Never Started This Medication)iron sucrose 300 mg in NaCl 0.9% 250 mL (VENOFER) (3 sources)Start: 11-29-2023 End: 95-48-6296oabq sucrose 300 mg in NaCl 0.9% 250 mL (VENOFER)Start: 11-22-2023 End: 46-96-1393asuf sucrose 300 mg in NaCl 0.9% 250 mL (VENOFER)Start: 11-15-2023 End: 21-08-2939nwgv sucrose 300 mg in NaCl 0.9% 250 mL (VENOFER)multivitamin (MULTIPLE VITAMINS) tablet (7 sources)take 1 tablet by mouth once dailymultivitamin (MULTIPLE VITAMINS) tablet Take 1 tablet by mouth once daily. 0 ActiveComment on above:Take 1 tablet by mouth once daily.ondansetron 4 mg disintegrating oral tablet (4 sources)Serotonin-3 Receptor AntagonistStart: 04-14-2024 End: 09-72-1506wlfl 1 tablet by mouth every six hours for nauseaondansetron ODT (Zofran-ODT) 4 MG disintegrating tablet Indications: Nausea and vomiting in Take 1 tablet (4 mg) by mouth every 6 (six) hours if needed for nausea or vomiting 30 tablet 2 04/14/2024 05/06/2024 DiscontinuedStart: 03-07-2024 End: 73-92-2393xepl 1 tablet by mouth every six hours as needed for nausea and vomiting and nausea and nauseaondansetron ODT (Zofran-ODT) 4 MG disintegrating tablet Indications: Nausea Take 1 tablet (4 mg) bymouth every 6 (six) hours if needed for nausea or vomiting 30 tablet 2 03/07/2024 04/06/2024 Active polysaccharide iron complex 391 mg oral capsule (20 sources)Start: 03-06-2022 End: 95-96-7271XMY FE 180 mg iron cap Problems Active Problems Problem ClassificationProblemDateDocumented DateEpisodic/ChronicAcute cerebrovascular disease (20 sources)Cerebral infarction; Translations: [Cerebral infarction, unspecified]Onset: 05-16-2019 Resolved: [id number] disorders (20 sources)Anxiety; Translations: [Anxiety disorder, unspecified]Onset: [id number] dysrhythmias (20 sources)Supraventricular tachycardia; Translations: [Supraventricular tachycardia]Onset: [id number] and hemorrhagic disorders (20 sources)Antiphospholipid syndrome; Translations: [Hypercoagulability state] Onset: [id number] and other anemia (20 sources)Iron 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; Translations: [Iron deficiency anemia secondary to blood loss (chronic)]Onset: 48-64-3316Wnibsjw Deficiency and other anemia (1 source)Iron deficiency anemia secondary to blood loss (chronic); Translations: [Iron deficiency anemia secondary to blood loss (chronic)]Onset: 31-53-9250WwmolxpWljqgkzu or abnormal glucose tolerance complicating ; childbirth; or the puerperium (20 sources)Gestational diabetes mellitus in , unspecified control; Translations: [Gestational diabetes mellitus in childbirth, unspecified control] Onset: 27-14-2740SbjpbejvVsvwkhudu of teeth and jaw (11 sources)Temporomandibular tayvc-nene-osxufyhcdvu syndrome; Translations: [Arthralgia of temporomandibular joint]Onset: 977664-22-2700Fymftoth Esophageal disorders (20 sources)Laryngopharyngeal reflux; Translations: [Gastro-esophageal reflux disease without esophagitis]Onset: 168077-24-2935TxfhgsiCgqysjls; including migraine (2 sources)Sinus headache; Translations: [Sinus headache]48-97-7103VgmjszqbUbgp effects of cerebrovascular disease (20 sources)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; Translations: [Other speechand language deficits following cerebral infarction]Onset: 44-32-1269NvzmxsuDusisqgwkj disorders (1 source)Hormone replacement therapy; Translations: [HORMONE REPLACEMENT THERAPY]Onset: 07-34-7774RxvdvmnkFdidpisum disorders (20 sources)Irregular menstruation, unspecified; Translations: [Missed period] Onset: 15-99-7465NwjqhtwJzborwglrtdse mental health disorders (20 sources)Psychogenic hyperventilation; Translations: [Other somatoform disorders]Onset: 086901-90-0306JxjfpvtKesemjlm sclerosis (1 source)Multiple sclerosis; Translations: [Multiple sclerosis]Onset: 20-68-9716RfvcentAzseqmgnqaq deficiencies (20 sources)Vitamin D deficiency; Translations: [Vitamin D deficiency, unspecified]Onset: 144088-57-4152JygiibsDynww aftercare (1 source)Other residential (current) drug therapy; Translations: [OTH ASSISTED CURRENT DRUG THERAPY]Onset: 04-97-7548NqhixuibVkufm aftercare (1 source)lobsterman (current) use of oral hypoglycemic drugs; Translations: [COMPUTING SERVICES DIRECTOR USE ORAL HYPOGLYCEMIC DX]Onset: 11-38-5995IahfejojBllhy aftercare (2 sources)H/O: miscarriage; Translations: [Encounter for other specified aftercare]27-61-0552JyfarmpwRyvaa circulatory disease (4 sources)History of cerebrovascular disease; Translations: [Personal history of transient ischemic attack (TIA), and cerebral infarction without residual deficits]Onset: 646328-90-6231XhbqvhpsAwvpg circulatory disease (3 sources)Personal history of transient ischemic attack (TIA), and cerebral infarction without residual deficits; Translations: [PERS HX TIA AND CI NO RESID DEFICIT]Onset: 73-49-1255CxdmsetbWndcp circulatory disease (1 source)History of transient ischemic attack; Translations: [Personal history of transient ischemic attack (TIA), and cerebral infarction without residual deficits]77-71-7208GyuovypeFfkxc complications of ; puerperium affecting management of mother (20 sources)Anemia in mother complicating childbirth; Translations: [Anemia complicating childbirth]Onset: 259724-42-0434GkagakzBdifb complications of ; puerperium affecting management of mother (1 source)Other diseases of the blood and blood-forming organs and certain disorders involving the immune mechanism complicating childbirth; Translations: [OTH DZ BLD BFO IMMUN COMP CHILDBRTH]Onset: 28-04-8086DugcingaYgfov complications of ; puerperium affecting management of mother (1 source)Endocrine, nutritional and metabolic diseases complicating childbirth; Translations: [ENDOCRN NUTR MET DZ COMP CHILDBIRTH]Onset: 73-75-3300Dswjphxo Other complications of ; puerperium affecting management of mother (1 source)Streptococcus B carrier state complicating childbirth; Translations: [STREP B QUIROZ STATE COMP CHILDBIRTH]Onset: 23-28-3792LxarinavTkmri complications of (20 sources)Iron deficiency anemia of ; Translations: [Anemia complicating , unspecified trimester]Onset: 94-72-3314FkwsqjdAvbpz complications of (1 source)Endocrine, nutritional and metabolic diseases complicating , third trimester; Translations: [ENDOCRN NUTR MET DZ COMP PG 3RD TRI]Onset: 61-33-5741SbznfmdzYaskt complications of (5 sources)Supervision of elderly multigravida, third trimester; Translations: [SUP ELDER MULTIGRAVIDA THIRD TRI]Onset: 88-79-6144UqgwuagvDshcm complications of (1 source)Other diseases of the blood and blood-forming organs and certain disorders involving the immune mechanism complicating , third trimester; Translations: [OTH DZ BLD BFO IMMN COMP PG 3RD TRI]Onset: 05-04-2022 EpisodicOther complications of (1 source)Maternal care for excessive growth, third trimester, not applicable or unspecified; Translations: [MAT CARE EXCSS FTL GRTH 3RD TRI UNS] Onset: 50-57-7510ZzjovllcWixby complications of (20 sources)History of with abortive outcome; Translations: [Supervision of with other poorreproductive or obstetric history, second trimester]Onset: 695008-42-2340DrrrmphcHucnp complications of (3 sources)Hypothyroidism in ; Translations: [Endocrine, nutritional and metabolic diseases complicating , second trimester]01-02-2025 EpisodicOther ear and sense organ disorders (20 sources)Otitis externa of right ear; Translations: [Unspecified otitis externa, right ear]Onset: 39-29-4248JyppgvpXqmet ear and sense organ disorders (7 sources)Otitis -94-4969BmjdoplEtjlg endocrine disorders (20 sources)Hypoglycemia; Translations: [Hypoglycemia, unspecified]Onset: 294790-81-7717DenkgotLivhj female genital disorders (2 sources)Vaginal bleeding; Translations: [Abnormal uterine and vaginal bleeding, unspecified]43-00-4805TvbuaxeLgbuz female genital disorders (4 sources)Vaginal discharge; Translations: [Other specified noninflammatory disorders of vagina]05-59-2638PztukhclBmhhp hematologic conditions (1 source)H/O: blood disorder; Translations: [Personal history of diseases of the blood and blood-forming organs and certain disorders involving the immune mechanism]Onset: 46-53-7194BffjdhpkSgndq lower respiratory disease (9 sources)Iomxp67-97-4740LaiqzidzFfvdg nervous system disorders (1 source)Idiopathic progressive neuropathy; Translations: [Idiopathic progressive neuropathy]Onset: 71-42-6304SmcvvnkMqyxm nervous system disorders (20 sources)Neuropathy; Translations: [Idiopathic progressive neuropathy]Onset: 297331-66-5979RrkbxosXxyqc nervous system disorders (3 sources)Paresthesia; Translations: [Paresthesia of skin]Onset: 05-16-2019 EpisodicOther nervous system disorders (9 sources)Muscle bddeld10-93-4398AfqisakgIwcsv nervous system disorders (6 sources)Facial olerjidsyys00-01-1942NhxcpxtfKqvbk nutritional; endocrine; and metabolic disorders (10 sources)Obese class II; Translations: [Body mass index (BMI) 36.0-36.9, adult]Onset: 12-77-5307MjwmpvyPbhkf nutritional; endocrine; and metabolic disorders (20 sources)Obesity; Translations: [Other obesity]Onset: 094088-13-9383 ChronicOther nutritional; endocrine; and metabolic disorders (20 sources)Morbid obesity; Translations: [Morbid (severe) obesity due to excess calories]Onset: 66-78-9536PvfzhvmVxwqo nutritional; endocrine; and metabolic disorders (3 sources)Hypercalcemia; Translations: [Hypercalcemia]85-52-3851CmqzjzpNiimn nutritional; endocrine; and metabolic disorders (20 sources)Body mass index 30+ - obesity; Translations: [Body mass index (BMI) 37.0-37.9, adult]Onset: 114613-08-2575ItluyxyIdeup nutritional; endocrine; and metabolic disorders (1 source)Obese class I; Translations: [Body mass index (BMI) 34.0-34.9, adult] Onset: 01-43-7862EeetdzzFxiun nutritional; endocrine; and metabolic disorders (1 source)H/O: Disorder; Translations: [Personal history of other endocrine, nutritional and metabolic disease]Onset: 06-20-7541TdglmlozJdhtz nutritional; endocrine; and metabolic disorders (2 sources)H/O: thyroid disorder; Translations: [Personal history of other endocrine, nutritional and metabolic disease]53-86-7241YeckyqydGngax screening for suspected conditions (not mental disorders or infectious disease) (12 sources)Encounter for screening for malignant neoplasm of cervix; Translations: [Encounter for screening for diabetes mellitus]Onset: 10-28-2021 EpisodicOther skin disorders (1 source)Podopompholyx; Translations: [Dyshidrosis [pompholyx]]Onset: 73-20-8507UdbffnqdGaoon upper respiratory disease (20 sources)Allergy to rdopkg88-80-6669LgjmmmqNuvfg upper respiratory disease (1 source)Polyp of nasal sinus; Translations: [Nasal polyp, unspecified]Onset: 99-94-3624ThotdmszEmdkn upper respiratory infections (8 sources)Chronic sinusitis; Translations: [Chronic sinusitis, unspecified] Onset: 04-27-3963NxrzwbjTnylgdlw codes; unclassified (1 source)Sleep disorder; Translations: [Other sleep disorders]Onset: 10-20-2022 ChronicResidual codes; unclassified (20 sources)Obstructive sleep apnea syndrome; Translations: [Obstructive sleep apnea (adult) (pediatric)]Onset: 079334-09-7687BsjhqkiZiovlbbn codes; unclassified (8 sources)Patient encounter status; Translations: [Other specified health status]Onset: 38-72-6726SxaoqvakNqhcsyak codes; unclassified (1 source)39 weeks gestation of ; Translations: [39 WEEKS GESTATION OF ]Onset: 29-89-9751PvnaiqofVqrfylxh codes; unclassified (1 source)Family history of diabetes mellitus; Translations: [FAMILY HISTORY OF DIABETES MELLITUS]Onset: 90-05-5744EyujstifAqdnebzw codes; unclassified (1 source)Family history of stroke; Translations: [FAMILY HISTORY OF STROKE] Onset: 25-47-5966NwsfrmreMkjplcwg codes; unclassified (1 source)38 weeks gestation of ; Translations: [38 WEEKS GESTATION OF ]Onset: 84-82-2565JtvlofmqPfthlxsg codes; unclassified (1 source)37 weeks gestation of ; Translations: [37 WEEKS GESTATION OF ]Onset: 56-24-4314PmmwojocMhljljsf codes; unclassified (1 source)35 weeks gestation of ; Translations: [35 WEEKS GESTATION OF ]Onset: 87-63-7059LceiqqhzZkwlbibq codes; unclassified (1 source)34 weeks gestation of ; Translations: [34 WEEKS GESTATION OF ]Onset: 68-30-6202NirfjfuuBdhspgsh codes; unclassified (1 source)33 weeks gestation of ; Translations: [33 WEEKS GESTATION OF ]Onset: 57-34-6211MwvxubccKxdijqmt codes; unclassified (1 source)32 weeks gestation of ; Translations: [32 WEEKS GESTATION OF ]Onset: 00-55-1329BtecpfiqXwavrgpa codes; unclassified (1 source)31 weeks gestation of ; Translations: [31 WEEKS GESTATION OF ]Onset: 83-48-4011MyxjukfqEkngfgtt codes; unclassified (20 sources)Sleep ixmkwjli92-95-1599OvgjodyeOrgfodel codes; unclassified (1 source)Localized edema; Translations: [Localized edema]Onset: 11-09-2023 EpisodicResidual codes; unclassified (2 sources)Gestation period, 14 weeks; Translations: [14 weeks gestation of ]81-32-8070BrzphkvtZyffqqsa codes; unclassified (2 sources)Gestation period, 13 weeks; Translations: [13 weeks gestation of ]17-09-4223CvevuoauCfhhvryc codes; unclassified (2 sources)Gestation period, 16 weeks; Translations: [16 weeks gestation of ]87-13-0315GbesernoItxbfcqc codes; unclassified (2 sources)Gestation period, 19 weeks; Translations: [19 weeks gestation of ]98-81-5984WvsdhsyjOcpugygj codes; unclassified (3 sources)Gestation period, 22 weeks; Translations: [22 weeks gestation of ]22-06-1674IzccfgawUmxzcsad codes; unclassified (3 sources)Family history of autism; Translations: [Family history of other mental and behavioral disorders]53-23-8996JyuoompoZgoebnyy codes; unclassified (2 sources)Gestation period, 23 weeks; Translations: [23 weeks gestation of ]69-19-4123GcctynrwUogjiqmi codes; unclassified (2 sources)Gestation period, 25 weeks; Translations: [25 weeks gestation of ]40-56-4180SrwhwxakLhuvottt codes; unclassified (1 source)Gestation period, 27 weeks; Translations: [27 weeks gestation of ]23-25-2041MeikyegoJdehvvza codes; unclassified (1 source)22 weeks gestation of ; Translations: [22 weeks gestation of ]Onset: 20-28-7157CbroiufpNitwqekz codes; unclassified (2 sources)Gestation period, 28 weeks; Translations: [28 weeks gestation of ]26-27-0080OzcztverGwcaqjio codes; unclassified (1 source)Gestation period, 29 weeks; Translations: [29 weeks gestation of ]06-57-7890FwasbuxzPzzseiwn codes; unclassified (2 sources)Gestation period, 30 weeks; Translations: [30 weeks gestation of ]61-21-2094KcxtskbiLxeekds disorders (20 sources)Hypothyroidism; Translations: [Hypothyroidism, unspecified]Onset: 262980-42-3085PvghisjWbijzot disorders (20 sources)Disorder of thyroid, unspecified; Translations: [Disorder of thyroid gland]Onset: 776203-65-7839LzbzwztiTxhkqjxzz cerebral ischemia (1 source)Transient cerebral ischemia; Translations: [Transient cerebral ischemic attack, unspecified]Onset: 836497-51-6815KjpamrcKshqskdokpkc (20 sources)History of YADK-CjT-227-11-2022Unclassified (20 sources)Inhalation itvlug42-98-1197Ziyygaymyepd (20 sources)Uzr-lrypkg43-98gtsjdv67-75-8898Dkbttilgbnon (1 source)CONTACT W/AND (SUSP) EXPOS COVID-19; Translations: [CONTACT W/AND (SUSP) EXPOS COVID-19]Onset: 95-13-1779Cxarjyrdbxlo (15 sources)Patient encounter aqmvge03-08-6264Sslghhhsreik (1 source)MFM consultOnset: 63-03-0027Basytsqorhft (1 source)Gestational DiabetesOnset: 69-34-7902Diriv infection (20 sources)Viral qqwfafe93-82-4781Gbpirsev Past or Other Problems Problem ClassificationProblemDateDocumented DateEpisodic/ChronicAbdominal pain (20 sources)Abdominal pain; Translations: [Pain in pelvis]Onset: 02-01-2019 59-32-4475NxkwavdsNajup bronchitis (20 sources)Acute infective bronchitis; Translations: [Acute bronchitis due to other specified organisms]Onset: 549198-46-4518HtrddqlaQpjat posthemorrhagic anemia (20 sources)Acute posthemorrhagic anemia; Translations: [Acute posthemorrhagic anemia]Onset: 670842-79-4853YwhthuvnCyswvufq reactions (20 sources)Other allergy status, other than to drugs and biological substances; Translations: [Tqvol-vo-gnauxiv vesicular eczema of hands and feet]Onset: 68-88-0758SabbezzdAjvslasuf infection; unspecified site (20 sources)Bacterial infectious disease; Translations: [Other bacterial infections of unspecified site]Onset: 768095-51-9591KllxdpkuUnsyghdb of urinary tract (20 sources)History of calculus of kidney; Translations: [Personal history of urinary calculi]Onset: 547729-34-5152CjjeiayqAitvifh dysrhythmias (20 sources)Palpitations; Translations: [Palpitations]Onset: 08-26-2019 60-44-2416MgkgwduxDzuxmjgehl associated with dizziness or vertigo (20 sources)Dizziness; Translations: [Dizziness and giddiness]Onset: 02-05-2019 55-95-5401GskfabwuUhdmurpdck and other anemia (20 sources)Anemia; Translations: [Anemia, unspecified]Onset: 58-85-6445Vgtmians Diabetes mellitus without complication (20 sources)Prediabetes; Translations: [Prediabetes]Onset: 26-34-3006Hnfaitjy Diseases of mouth; excluding dental (20 sources)Xerostomia; Translations: [Dry mouth, unspecified]Onset: 12-22-2022 EpisodicFluid and electrolyte disorders (20 sources)Cerebral hyponatremia; Translations: [Hypo-osmolality and hyponatremia]Onset: 27-92-3243YdaarpfbNqykvkzlgmkdrcyx hemorrhage (20 sources)Hematochezia; Translations: [Blood-tinged feces]Onset: 06-12-2023 54-80-5025JyiffvvaAlsqujlcstvgf symptoms and ill-defined conditions (20 sources)Genitourinary symptoms; Translations: [Unspecified symptoms and signs involving the genitourinary system]Onset: 96-70-3392XxqnbkhgSlylytbi; including migraine (20 sources)Migraine without aura, not refractory ; Translations: [Migraine without aura, not intractable, without status migrainosus]Onset: 09-12-2017 Resolved: 532161-03-9994UowzuahCyrrbaiqcijjq and screening for infectious disease (20 sources)Antibody studies abnormal; Translations: [Raised antibody titer] Onset: 797086-95-6842GljnvpzbWbglqdb and fatigue (20 sources)Fatigue; Translations: [Other fatigue]Onset: EpisodicMycoses (20 sources)Candidiasis of vagina Resolved: 192880-78-5469JsnsrubaVewzwbnkbld deficiencies (20 sources)Vitamin B deficiency; Translations: [Deficiency of other specified B group vitamins]Onset: 783101-65-0883HqqnzjirEQ-rwcnpba trauma to perineum and vulva (20 sources)First degree perineal tear during delivery - delivered; Translations: [First degree perineal laceration during delivery]Onset: 769343-64-0595MpbfvvfeTbnno aftercare (20 sources)Long-term current use of anticoagulant; Translations: [lobsterman (current) use of anticoagulants]Onset: 905572-49-9482HohncwehKgedm aftercare (20 sources)Long-term current use of drug therapy; Translations: [lobsterman (current) use of antithrombotics/antiplatelets]Onset: EpisodicOther circulatory disease (20 sources)History of cerebrovascular accident; Translations: [Personal history of transient ischemic attack (TIA), and cerebral infarction without residual deficits]Onset: 827514-42-8331LkccspgjClpqokz on above:reported by pt - related to antiphospholipid syndromeOther circulatory disease (20 sources)Elevated blood-pressure reading without diagnosis of hypertension; Translations: [Elevated blood-pressure reading, without diagnosis of hypertension]Onset: 905419-94-9122VdwbebulHsnpn circulatory disease (20 sources)Elevated blood pressure; Translations: [Elevated blood-pressure reading, without diagnosis of hypertension]Onset: 867796-07-2950Qsbfcczs Other complications of ; puerperium affecting management of mother (20 sources) problem; Translations: [Unspecified disorders of ]Onset: 018084-08-0914UkfwamsaTbicn complications of ; puerperium affecting management of mother (1 source)Endocrine, nutritional and metabolic disease complicating , childbirth and puerperium; Translations: [Endocrine, nutritional and metabolic diseases complicating childbirth]Onset: 899957-48-5124XupxtgmqZulee complications of ; puerperium affecting management of mother (1 source)Complication of , childbirth and/or the puerperium; Translations: [Other diseases of the blood and blood-forming organs and certain disorders involving the immune mechanism complicating childbirth]Onset: 313338-69-5395GfcbnvylWbgou complications of ; puerperium affecting management of mother (20 sources) hemorrhage; Translations: [Other immediate hemorrhage]Onset: 201488-99-7366TngtdwgiXvlcb complications of (1 source)Vomiting of ; Translations: [Vomiting of , unspecified]Onset: 089400-98-7651RpmukikkBspfl complications of (20 sources)Chromosomal abnormality in fetus affecting obstetrical care; Translations: [Maternal care for (suspected) chromosomal abnormality in fetus, not applicable or unspecified]Onset: 294422-31-6031PzhnwxcmKsudi complications of (4 sources)Other specified related conditions, third trimester; Translations: [OTH SPEC PREG RELATEDCOND 3RD TRI]Onset: 22-56-8025IvewupdjAluxj complications of (20 sources)Antiphospholipid syndrome; Translations: [Other diseases of the blood and blood-forming organs and certain disorders involving the immune mechanism complicating , unspecified trimester]Onset: 07-07-2019 47-86-6684UrquehhuIrrso complications of (20 sources)Multigravida of advanced maternal age; Translations: [Supervision of elderly multigravida, second trimester]Onset: 434170-15-5991OprfauygAhcot complications of (2 sources)Other diseases of the blood and blood-forming organs and certain disorders involving the immune mechanism complicating , unspecified trimester; Translations: [Other diseases of the blood andblood-forming organs and certain disorders involving the immune mechanism complicating , un specified trimester]Onset: 76-93-0933ZahgnaiwMfloy complications of (1 source)Supervision of elderly multigravida, second trimester; Translations: [Supervision of elderly multigravida, second trimester]Onset: 33-94-8343Poqqcmvh Other ear and sense organ disorders (20 sources)Referred otalgia of right ear; Translations: [Otalgia, right ear] Onset: 404719-33-5552RqocnuekQsaef female genital disorders (20 sources)Noninflammatory disorder of the vagina; Translations: [Other specified noninflammatory disorders ofvagina]Onset: 049270-40-7705Hrnayxel Other female genital disorders (20 sources)Disorder of female reproductive system; Translations: [Unspecified condition associated with femalegenital organs and menstrual cycle]Onset: 740201-38-5886PouyvuisNydyb female genital disorders (1 source)Other specified noninflammatory disorders of vagina; Translations: [OTH SPEC NONINFLAMMATORY D/O VAGINA]Onset: 95-25-2808AozsbjwkGhdyt female genital disorders (14 sources)Pelvic and perineal pain; Translations: [Pelvic and perineal pain] Onset: 168325-24-6997TmadmaspNtyre hematologic conditions (20 sources)H/O: anemia - iron deficient; Translations: [Personal history of diseases of the blood and blood-forming organs and certain disorders involving the immune mechanism]Onset: 155987-04-7794KqpgdktwDehqt infections; including parasitic (20 sources)Personal history of other infectious and parasitic diseases; Translations: [History of COVID-19]Onset: 681713-18-0213XpqccxviTwvzl inflammatory condition of skin (1 source)Itching of skin; Translations: [Pruritus, unspecified]Onset: 538137-08-6431KccadbsxXarsx inflammatory condition of skin (20 sources)Pruritus, unspecified; Translations: [Unspecified pruritic disorder] Onset: 947892-03-1709FklgniibNcneu injuries and conditions due to external causes (20 sources)Inhalation injury; Translations: [Injury, unspecified, initial encounter]Onset: 485248-61-3644MekufjlrUmcuv lower respiratory disease (20 sources)Dyspnea; Translations: [Dyspnea, unspecified]Onset: 06-12-2023 47-69-2577AebkedpeJkotu lower respiratory disease (20 sources)H/O: asthma; Translations: [Personal history of other diseases of the respiratory system]Onset: 818496-45-9934GqbcjyiqJgbrq lower respiratory disease (20 sources)Snoring; Translations: [Snoring]Onset: 36-27-0861UvlthibrJnnhq nervous system disorders (20 sources)Muscle fasciculation; Translations: [Fasciculation]Onset: 08-19-2021 EpisodicOther nervous system disorders (20 sources)Paresthesia of lower extremity; Translations: [Paresthesia of skin] Onset: 964999-96-6889AclmbhrgVpyxr nervous system disorders (20 sources)Acute postoperative pain; Translations: [Other acute postprocedural pain]Onset: 922868-41-5119QitkbwqjWprvr non-traumatic joint disorders (20 sources)Joint pain; Translations: [Pain in unspecified joint]Onset: 109843-74-8030HnrnlhlpGptvx nutritional; endocrine; and metabolic disorders (20 sources)H/O: hypothyroidism; Translations: [Personal history of other endocrine, nutritional and metabolic disease]Onset: 061069-52-9715Fladjoda Other and delivery including normal (20 sources)Normal ; Translations: [Encounter for supervision of normal , unspecified, first trimester]Onset: 379945-58-8465Rsgqgsww Other skin disorders (20 sources)Sfjto-jp-vzaurpn vesicular eczema of hands and feet; Translations: [Dyshidrosis [pompholyx]]Onset: 758332-39-5482FjxxztpyVcwgr upper respiratory disease (20 sources)Deviated nasal septum; Translations: [Deviated nasal septum]Onset: 33-79-8700CipzhmnmMdhse upper respiratory disease (20 sources)Polyp of nasal cavity and/or nasal sinus; Translations: [Nasal polyp, unspecified]Onset: 978839-65-4503VxrfrcyzGzezb upper respiratory infections (20 sources)Acute upper respiratory infection Resolved: 317539-66-8262XgvkrnzzBcxchm media and related conditions (20 sources)Dysfunction of eustachian tube; Translations: [Disorder of right Eustachian tube]Onset: 902680-00-9784MzlkhwkhXhmkfdl cyst (20 sources)Cyst of ovary; Translations: [Cyst of right ovary]Onset: 02-06-2019 83-21-3662ZjotgcfjBrtaxrms codes; unclassified (20 sources)Family history of female genital tract disorder Resolved: 664607-47-9739IubwlhtqIqswtlyv codes; unclassified (20 sources)FH: Anemia Resolved: 931500-33-2457DxmemeniRsupican codes; unclassified (20 sources)First trimester ; Translations: [Less than 8 weeks gestation of ]Onset: 701142-10-3630VolpxmywOwjpsywg codes; unclassified (20 sources)Gestation period, 32 weeks; Translations: [32 weeks gestation of ]Onset: 902477-68-7938LgquyywaSmsqibbp codes; unclassified (1 source)Gestation period, 33 weeks; Translations: [33 weeks gestation of ]Onset: 092414-82-0616PnhihiibIexcugny codes; unclassified (1 source)Gestation period, 34 weeks; Translations: [34 weeks gestation of ]Onset: 779958-05-3744WcyfvaucWkzrtapm codes; unclassified (1 source)Gestation period, 35 weeks; Translations: [35 weeks gestation of ]Onset: 653027-25-8307VcmotfnjNdsaichr codes; unclassified (1 source)Gestation period, 36 weeks; Translations: [36 weeks gestation of ]Onset: 758941-22-8590AztphcklQogtyhma codes; unclassified (1 source)Gestation period, 37 weeks; Translations: [37 weeks gestation of ]Onset: 262596-16-9148LtcgkibbEjjoimsy codes; unclassified (1 source)Gestation period, 38 weeks; Translations: [38 weeks gestation of ]Onset: 206787-17-5019TwyedfhhQvlstqin codes; unclassified (1 source)Gestation period, 39 weeks; Translations: [39 weeks gestation of ]Onset: 103249-74-0903PiitdzywJzcxqvlt codes; unclassified (20 sources)Other general symptoms and signs; Translations: [Other general symptoms]Onset: 727380-75-4183UpnvgjslCbhoqugg codes; unclassified (1 source)Unspecified blood type, Rh negative; Translations: [UNSPECIFIED BLOOD TYPE RH NEGATIVE]Onset: 63-59-8012WuehyzxfUwgljmfq codes; unclassified (1 source)28 weeks gestation of ; Translations: [28 WEEKS GESTATION OF ]Onset: 82-72-9766DikdiqmwBisrkpuh codes; unclassified (20 sources)Intolerant of cold; Translations: [Other general symptoms and signs] Onset: 126211-42-9637HlllstftQsurjins codes; unclassified (20 sources)Non-smoker; Translations: [Other specified health status]Onset: 975094-47-0251UaicfxvhJwqrqrxz codes; unclassified (20 sources)Swelling of salivary gland; Translations: [Localized edema]Onset: 320427-28-3551QodgmynlFtqbifdvjxu; intervertebral disc disorders; other back problems (20 sources)Neck pain; Translations: [Cervicalgia]Onset: EpisodicSpontaneous (20 sources)Miscarriage Resolved: 758424-84-3090IccblgedBrdryue (20 sources)Syncope and collapse; Translations: [Syncope and collapse]Onset: 425562-86-3031AkanefosYiofqwytfxzr (20 sources)PregnancyOnset: 02-20-2007 Resolved: 561578-34-8020Egwfbicknzna (20 sources)Suspected disease caused by 0694-lMvI56-22hDsW96-04-3768Upjzwsheuffr (1 source)Exposure to 2019 novel coronavirus; Translations: [Contact with and (suspected) exposure to COVID19]Urinary tract infections (20 sources)Infective urethritis; Translations: [Other urethritis]Onset: 92-04-7529Iegvwbdl Results Test NameValueInterpretationReference RangeFacilityUS OB BPP W NON-STRESS on 49-86[place]0622[place], [place] [address] Ultrasound Report Signed Patient: SANNA RENDON MR#: [id number] : 1985 Acct:[id number] Age/Sex: 39 / F ADM Date: 03/05/25 Loc: US Attending Dr: Wilton Herrmann D.O. Ordering Physician: Wilton Herrmann D.O. Date of Service: 03/05/25 Procedure(s): US OB BPP w non-stress Accession Number(s): [id number] cc: Wilton Herrmann D.O.; Physician,Non-Staff M.DLazara The [place] [id number] Patient Name: SANNA RENDON MRN: [facility]:[id number] date: 1985 Sex: F Assigned Patient Location: [facility] Current Patient Location: Accession/Order Number: [id number] Exam Date: 03/05/2025 19:15 Report Date: 03/06/2025 [...] Pisano M.D. 03/06/2025 8:10 AM Dictation Location: [place] [address] Electronically authenticated by: [id number] Y Date: 03/06/2025 08:10 Dictated By: Pamela Pisano M.D. Signed By: 03/06/2513 DD/ 9 TD/TT: On Call:ELVERadiology, Radiologist, - 03/06/2025 [place] [address] Ultrasound Report Signed Patient: SANNA RENDON MR#: [id number] : 1985 Acct:[id number] Age/Sex: 39 / F ADM Date: 03/05/25 Loc: US Attending Dr: Wilton Herrmann D.O. Ordering Physician: Wilton Herrmann D.O. Date of Service: 03/05/25 Procedure(s): US OB BPP w non-stress Accession Number(s): [id number] cc: Wiltno Herrmann D.O.; Physician,Non-Staff Tamia [place] [address] Patient Name: SANNA RENDON MRN: [facility]:[id number] date: 1985 Sex: F Assigned Patient Location: [facility] Current Patient Location: Accession/Order Number: [id number] Exam Date: 03/05/2025 19:15 Report Date: 03/06/2025 [...] Pisano M.D. 03/06/2025 8:10 AM Dictation Location: [place] [address] Electronically authenticated by: [id number] Y Date: 03/06/2025 08:10 Dictated By: Pamela Pisano M.D. Signed By: 03/06/25812 DD/ 9 TD/TT: On Call: SHILOH HealthcareRadiology Study observation (narrative)[facility] HealthcareUS OB BPP W NON-STRESSOrdered By: Radiologist Radiology on 30-17-8042MBPURanken Jordan Pediatric [facility] Work Phone: [phone]([place])D3 [facility] 129766-xhjymqvkidvpzc D3 [Mass/Vol]54.6 ng/eZEwbhwe92.0-80.0[facility] on above: Order Comment: Specimen Type: BLOOD SPECIMENOrdering Facility: [facility] Address:[address] [place], [place] [address]Performed By: #### 1989-3 ####[facility] LABCLIA [id number] [address] Auto Differential panel (Bld)on 03-02-2025 Basophils (Bld) [#/Vol]0.03 10*3/uLNormal<0.11CFirelands Regional Medical Center South CampusComment on above:Order Comment: Specimen Type: BLOOD SPECIMENOrdering Facility: [facility] Address:[address] [place] [address] Performed By: #### 10026-1 ####[facility] LABCLIA [id number] [place], [place] [address]Stwpvqjsb/100 WBC (Bld)0.3 % NormalRegency Hospital [facility] on above:Order Comment: Specimen Type: BLOOD SPECIMENOrdering Facility: [facility] Address:[address] [place], [place] [address]Performed By: #### 94142-1 ####[facility] LABCLIA [id number] [place] [address] Differential cell count method Nom (Bld)AutoNormalCFirelands Regional Medical Center South Campus Comment on above:Order Comment: Specimen Type: BLOOD SPECIMENOrdering Facility: [facility] Address:[address] [place] [address] Performed By: #### 93588-0 ####[facility] LABCLIA [id number] [place], [place] [address]Etxsncqyswi (Bld) [#/Vol]0.06 10*3/uLNormal<0.46[facility] on above:Order Comment: Specimen Type: BLOOD SPECIMENOrdering Facility: [facility] Address:[address] [place], [place] [address]Performed By: #### 96712-6 ####[facility] LABCLIA [id number] [place], [place] [address]Kzunubbwwcd/100 WBC (Bld)0.7 %NormalRegency Hospital [facility] on above:Order Comment: Specimen Type: BLOOD SPECIMENOrdering Facility: [facility] Address:[address] [place], [place] [address]Performed By: #### 54956-0 ####[facility] LABCLIA [id number] [place], [place] [address]Bzlfbyrkrcw distribution width (RBC) [Ratio]13.3 %Ecbecw34.5-15.0[facility] on above: Order Comment: Specimen Type: BLOOD SPECIMENOrdering Facility: [facility] Address:[address] [place], [place] [address]Performed By: #### 05026- 8 ####[facility] LABIA [id number] [place], [place] [address]Sydtytghuw (Bld) [Volume fraction]33.0 %Low36.0-46.0 [facility] on above:Order Comment: Specimen Type: BLOOD SPECIMENOrdering Facility: [facility] Address:[address] [place], [place] [address]Performed By: #### 13183-7 ####[facility] LABIA [id number] [place], [place] [address]Suzggtifzv (Bld) [Mass/Vol]11.6 g/yTZptyfe72.5-15.5CMorrow [facility] on above: Order Comment: Specimen Type: BLOOD SPECIMENOrdering Facility: [facility] Address:[address] [place], [place] [address]Performed By: #### 75071- 8 ####[facility] LABCLIA [id number] [place], [place] [address]Uqqtrqnx granulocytes (Bld) [#/Vol]0.04 10*3/uLNormal <0.10[facility] on above:Order Comment: Specimen Type: BLOOD SPECIMENOrdering Facility: [facility] Address:[address] [place], [place] [address]Performed By: #### 52109-1 ####[facility] LABCLIA [id number] [place], [place] [address]Kbvxiyjo granulocytes/100 WBC (Bld)0.5 %NormalRegency Hospital [facility] on above: Order Comment: Specimen Type: BLOOD SPECIMENOrdering Facility: [facility] Address:[address] [place], [place] [address]Performed By: #### 49637- 8 ####[facility] LABCLIA [id number] [place], [place] [address]Jpamissmwoe (Bld) [#/Vol]2.31 10*3/uLNormal1.00-4.00 [facility] on above:Order Comment: Specimen Type: BLOOD SPECIMENOrdering Facility: [facility] Address:[address] [place], [place] [address]Performed By: #### 14971-4 ####[facility] LABCLIA [id number] [place], [place] [address]Xjocumssycg/100 WBC (Bld)26.7 %NormalRegency Hospital [facility] on above:Order Comment: Specimen Type: BLOOD SPECIMENOrdering Facility: [facility] Address:[address] [place], [place] [address]Performed By: #### 72992-7 ####[facility] LABCLIA [id number] [place], [place] [address]FWK (RBC) [Entitic mass]31.3 gpEwrset22.0-34.0[facility] on above:Order Comment: Specimen Type: BLOOD SPECIMENOrdering Facility: [facility] Address:[address] [place], [place] [address]Performed By: #### 35326-5 ####[facility] LABCLIA [id number] [place], [place] [address]RUNR (RBC) [Mass/Vol]35.2 g/eQYioxdq84.5-36.0[facility] on above: Order Comment: Specimen Type: BLOOD SPECIMENOrdering Facility: [facility] Address:[address] [place], [place] [address]Performed By: #### 52357- 8 ####[facility] LABCLIA [id number] [place], [place] [address]XKY (RBC) [Entitic vol]88.9 yMHhtryb18.0-100.0[facility] on above:Order Comment: Specimen Type: BLOOD SPECIMENOrdering Facility: [facility] Address:[address] [place], [place] [address]Performed By: #### 40580-0 ####[facility] LABIA [id number] [place], [place] [address]Qtmnborzm (Bld) [#/Vol]0.63 10*3/uLNormal<0.87[facility] on above:Order Comment: Specimen Type: BLOOD SPECIMENOrdering Facility: [facility] Address:[address] [place], [place] [address]Performed By: #### 51564- 8 ####[facility] LABCLIA [id number] [place], [place] [address]Zldndxsii/100 WBC (Bld)7.3 %NormalRegency Hospital [facility] on above:Order Comment: Specimen Type: BLOOD SPECIMENOrdering Facility: [facility] Address:[address] [place], [place] [address]Performed By: #### 18617-4 ####[facility] LABCLIA [id number] [place], [place] [address]Ddkqnrkttjg (Bld) [#/Vol]5.57 10*3/uLNormal1.45-7.50[facility] on above:Order Comment: Specimen Type: BLOOD SPECIMENOrdering Facility: [facility] Address:[address] [place], [place] [address]Performed By: #### 88688-8 ####[facility] LABCLIA [id number] [place], [place] [address]Zbntwjdvxpo/100 WBC (Bld)64.5 %NormalRegency Hospital [facility] on above:Order Comment: Specimen Type: BLOOD SPECIMENOrdering Facility: [facility] Address:[address] [place], [place] [address]Performed By: #### 01110-3 ####[facility] LABCLIA [id number] [place], [place] [address]Yqejcjrqw RBC (Bld) [#/Vol] 10*3/uLNormal<0.01[facility] on above:Order Comment: Specimen Type: BLOOD SPECIMENOrdering Facility: [facility] Address:[address] [place], [place] [address]Performed By: #### 45615-6 ####[facility] LABCLIA [id number] [place], [place] [address]Ubtyzfpdu RBC/100 WBC (Bld) [Ratio]0.0 /100 WBCNormal [facility] on above:Order Comment: Specimen Type: BLOOD SPECIMENOrdering Facility: [facility] Address:[address] [place], [place] [address]Performed By: #### 77589-1 ####[facility] LABIA [id number] [place], [place] [address]Lqdmypxc mean volume (Bld) [Entitic vol]9.4 fLNormal9.0-12.7CMorrow County Hospital on above:Order Comment: Specimen Type: BLOOD SPECIMENOrdering Facility: [facility] Address:[address] [place] [address] Performed By: #### 56822-6 ####[facility] LABCLIA [id number] [place], [place] [address]Kwkosutgk (Bld) [#/Vol]257 10*3/aWUuyezk834-852JgniiczbmRegency Hospital [facility] on above:Order Comment: Specimen Type: BLOOD SPECIMENOrdering Facility: [facility] Address:[address] [place], [place] [address]Performed By: #### 24582-0 ####[facility] LABIA [id number] [place], [place] [address]KEQ (Bld) [#/Vol]3.71 10*6/uLLow3.90-5.20[facility] on above:Order Comment: Specimen Type: BLOOD SPECIMENOrdering Facility: [facility] Address:[address] [place], [place] [address]Performed By: #### 21436-4 ####[facility]ITAL[facility] [id number] [place], [place] [address]NXE (Bld) [#/Vol]8.64 10*3/uL Normal3.70-11.00[facility] on above:Order Comment: Specimen Type: BLOOD SPECIMENOrdering Facility: [facility] Address:[address] [place], [place] [address]Performed By: #### 53349-4 ####[facility] LABIA [id number] [place], [place] [address]XVQHYGyq 56-45-1061XFPFNWMxcej (SP) Office (HEMASA) SANNA RENDON ([id number]) 1985 F Date Time Provider Department 03/02/25 11:30 AM KATHERINE NEGRETE During your visit today, we recorded the following information about you: Temperature Pulse Respiration Blood pressure 97.2 degrees 73/minute 16/minute 133/79 Weight 97.2 kg Katherine Negrete APRN.CNP 03/02/2025 8:18 PM Signed NAME: Sanna Rendon CLINIC NO.: [id number] DATE OF SERVICE: March 02, 2025 (Penelope) [...] later in 2018. These were found in [place], [place]. I don't have access to these [...] rash shortly before presenting to [facility] in 2016 with headaches and was [...] SUMMARIZED PLAN OF CARE: Continue Lovenox Saw REFRIGERATION PERSON and patient increased Lovenox to 40 mg [...] mg/dL and postpra (more content not included)... NormalC[facility] Clinic [facility] Hospitalprehensive metabolic 2000 panelon 03-02-2025 Albumin [Mass/Vol]4.1 g/dLNormal3.9-4.9CMorrow [facility] Hospital on above:Order Comment: Specimen Type: BLOOD SPECIMENOrdering Facility: [facility] Address:[address] [place], [place] [address]Performed By: #### 23074-9 ####[facility] LABCLIA [id number] [place], [place] [address]KIE [Catalytic activity/Vol]64 U/RBarayw81-868 [facility] on above:Order Comment: Specimen Type: BLOOD SPECIMENOrdering Facility: [facility] Address:[address] [place], [place] [address]Performed By: #### 53648-3 ####[facility] LABCLIA [id number] [place], [place] [address]DHG [Catalytic activity/Vol]10 U/LNormal7-38[facility] on above:Order Comment: Specimen Type: BLOOD SPECIMENOrdering Facility: [facility] Address:[address] [place], [place] [address]Performed By: #### 17715- 8 ####[facility] LABCLIA [id number] [place], [place] [address]Mwvfg gap [Moles/Vol]13 mmol/LNormal8-15[facility] on above:Order Comment: Specimen Type: BLOOD SPECIMENOrdering Facility: [facility] Address:[address] [place], [place] [address]Performed By: #### 96192-2 ####[facility] LABCLIA [id number] [place], [place] [address]BFC [Catalytic activity/Vol]12 U/LMmg01-87LlbufveglRegency Hospital [facility] East on above:Order Comment: Specimen Type: BLOOD SPECIMENOrdering Facility: [facility] Address:[address] [place], [place] [address]Performed By: #### 72690-9 ####[facility] LABCLIA [id number] [place] [address] Bilirubin [Mass/Vol]0.2 mg/dLNormal0.2-1.3CMorrow County Hospital on above:Order Comment: Specimen Type: BLOOD SPECIMENOrdering Facility: [facility] Address:[address] [place], [place] [address]Performed By: #### 36791-4 ####[facility] LABCLIA [id number] [place], [place] [address]Nbitxhu [Mass/Vol]10.3 mg/dLHigh8.5-10.2CMorrow County Hospital on above:Order Comment: Specimen Type: BLOOD SPECIMENOrdering Facility: [facility] Address:[address] [place], [place] [address]Performed By: #### 68000-3 ####[facility] LABCLIA [id number] [place], [place] [address]Ucnkykfi [Moles/Vol]97 mmol/MEpd60-059VtwifacvtRegency Hospital [facility] East on above:Order Comment: Specimen Type: BLOOD SPECIMENOrdering Facility: [facility] Address:[address] [place], [place] [address]Performed By: #### 19195- 8 ####[facility] LABCLIA [id number] [facility] [place], [place] [address]FI1 [Moles/Vol]21 mmol/YNnn60-90GssqzcdxyRegency Hospital [facility] on above:Order Comment: Specimen Type: BLOOD SPECIMENOrdering Facility: [facility] Address:[address] [place], [place] [address]Performed By: #### 26069-1 ####[facility] LABCLIA [id number] [place], [place] [address]Fzytrjrlvk [Mass/Vol]0.54 mg/dL Low0.58-0.96[facility] on above:Order Comment: Specimen Type: BLOOD SPECIMENOrdering Facility: [facility] Address:[address] [place], [place] [address]Performed By: #### 97607-6 ####[facility] LABCLIA [id number] [place] [address] eGFRcr SerPlBld CKD-EPI 2688240 mL/min/1.73m???Normal>=60[facility] on above:Order Comment: Specimen Type: BLOOD SPECIMENOrdering Facility: [facility] Address:[address] [place], [place] [address]Result Comment: Estimated Glomerular Filtration Rate (eGFR) is [...] accurately reflect actual GFR. Performed By: #### 48927-2 ####[facility] LABIA [id number] [place], [place] [address]Mjkgovd [Mass/Vol]71 mg/dLLow 74-99[facility] on above:Order Comment: Specimen Type: BLOOD SPECIMENOrdering Facility: [facility] Address:[address] [place], [place] [address]Result Comment: The [place] Diabetes Association (ADA) provides guidance for cutoff [...] Standards of Medical Care in Diabetes 2016, [place] [employer]. Diabetes Care. 2016.39(Suppl 1).Performed By: #### 39188-7 ####[facility] LABCLIA [id number] [place], [place] [address]Kblwjbysf [Moles/Vol]3.9 mmol/LNormal3.7-5.1CMorrow [facility] on above:Order Comment: Specimen Type: BLOOD SPECIMENOrdering Facility: [facility] Address:[address] [place], [place] [address]Performed By: #### 40415-8 ####[facility] LABCLIA [id number] [place], [place] [address]Pnhhxfh [Mass/Vol]7.2 g/dLNormal6.3-8.0[facility] on above:Order Comment: Specimen Type: BLOOD SPECIMENOrdering Facility: [facility] Address:[address] [place], [place] [address]Performed By: #### 97723- 8 ####[facility] LABCLIA [id number] [place], [place] [address]Smsuaf [Moles/Vol]131 mmol/PFkv782-071WopfzhtlpRegency Hospital [facility] on above:Order Comment: Specimen Type: BLOOD SPECIMENOrdering Facility: [facility] Address:[address] [place], [place] [address]Performed By: #### 32614-9 ####[facility] LABCLIA [id number] [place], [place] [address]Andt nitrogen [Mass/Vol]9 mg/dL Normal7-21[facility] on above:Order Comment: Specimen Type: BLOOD SPECIMENOrdering Facility: [facility] Address:[address] [place], [place] [address], [place] [address]Performed By: #### 11252-3 ####[facility] LABCLIA [id number] [place] [address] US OB BPP W NON-STRESSon 97-87-1499[place]xa[place], [place] [address] Ultrasound Report Signed Patient: SANNA RENDON MR#: [id number] : 1985 Acct:[id number] Age/Sex: 39 / F ADM Date: 02/26/25 Loc: US Attending Dr: Wilton Herrmann D.O. Ordering Physician: Wilton Herrmann D.O. Date of Service: 02/26/25 Procedure(s): US OB BPP w non-stress Accession Number(s): [id number] cc: Wilton Herrmann D.O.; Physician,Non-Staff M.DLazara The [place] [address] Patient Name: SANNA RENDON MRN: [id number] date: 1985 Sex: F Assigned Patient Location: US Current Patient Location: Accession/Order Number: [id number] Exam Date: 02/26/2025 19:42 Report Date: 02/27/2025 [...] Pisano M.D. 02/27/2025 10:53 AM Dictation Location: [place] [address] Electronically authenticated by: [id number] Y Date: 02/27/2025 10:53 Dictated By: Pamela Pisano M.D. Signed By: 02/27/25 1056 DD/ 1053 TD/TT: On Call:MANUELHRadiology, Radiologist, - 02/27/2025 [place] [address] Ultrasound Report Signed Patient: SANNA RENDON MR#: [id number] : 1985 Acct:[id number] Age/Sex: 39 / F ADM Date: 02/26/25 Loc: US Attending Dr: Wilton Herrmann D.O. Ordering Physician: Wilton Herrmann D.O. Date of Service: 02/26/25 Procedure(s): US OB BPP w non-stress Accession Number(s): [id number] cc: Wilton Herrmann D.O.; Physician,Non-Staff Tamia The [address] [id number] Patient Name: SANNA RENDON MRN: [id number] date: 1985 Sex: F Assigned Patient Location: Current Patient Location: Accession/Order Number: [id number] Exam Date: 02/26/2025 19:42 Report Date: 02/27/2025 [...] Pisano M.D. 02/27/2025 10:53 AM Dictation Location: [place] [address] Electronically authenticated by: [id number] Y Date: 02/27/2025 10:53 Dictated By: Pamela Pisano M.D. Signed By: 02/27/25 1056 DD/ 1053 TD/TT: On Call: [facility] HealthcareRadiology Study observation (narrative)[facility] HealthcareUS OB BPP W NON-STRESSOrdered By: Radiologist Radiology on 42-98-3653NDGVRanken Jordan Pediatric Specialty [facility] Work Phone: Urinalysis macro (dipstick) panel [...] - 1.03[facility] Urobilinogen, UA0.20.2 - 12 mg/dLNOFreeman Cancer InstituteNOFreeman Cancer InstituteNo Panel InformationOrdered By: Radiologist Radiology on 25-87-3215JRSVRanken [facility] Hospital Work Phone: No Panel Informationon 37-07-1259Swxmzctnn Study observation (narrative)SHILOH BrowningUS OB BPP W NON-STRESSon 02-20-2025 [place] [address] Ultrasound Report Signed Patient: SANNA RENDON MR#: [id number] : 1985 Acct:[id number] Age/Sex: 39 / F ADM Date: 02/19/25 Loc: US Attending Dr: Wilton Herrmann D.O. Ordering Physician: Wilton Herrmann D.O. Date of Service: 02/19/25 Procedure(s): US OB BPP w non-stress Accession Number(s): [id number] cc: Wilton Herrmann D.O.; Physician,Non-Staff M.DLazara The [place] [id number] Patient Name: SANNA RENDON MRN: [id number] date: 1985 Sex: F Assigned Patient Location: LAB Current Patient Location: Accession/Order Number: [id number] Exam Date: 02/19/2025 19:47 Report Date: 02/20/2025 [...] Pisano M.D. 02/20/2025 8:37 AM Dictation Location: [place] [address] Electronically authenticated by: [id number] Y Date: 02/20/2025 08:37 Dictated By: Pamela Pisano M.D. Signed By: 02/20/25 0840 DD/ 0837 TD/TT: On Call:TBHRadiology, Radiologist, - 02/20/2025 [place] [address] Ultrasound Report Signed Patient: SANNA RENDNO MR#: [id number] : 1985 Acct:[id number] Age/Sex: 39 / F ADM Date: 02/19/25 Loc: US Attending Dr: Wilton Herrmann D.O. Ordering Physician: Wilton Herrmann D.O. Date of Service: 02/19/25 Procedure(s): US OB BPP w non-stress Accession Number(s): [id number] cc: Wilton Herrmann D.O.; Physician,Non-Staff Tamia The [place] [id number] Patient Name: SANNA RENDON MRN: [id number] date: 1985 Sex: F Assigned Patient Location: LAB Current Patient Location: Accession/Order Number: [id number] Exam Date: 02/19/2025 19:47 Report Date: 02/20/2025 [...] Pisano M.D. 02/20/2025 8:37 AM Dictation Location: [place] [address] Electronically authenticated by: [id number] Y Date: 02/20/2025 08:37 Dictated By: Pamela Pisano M.D. Signed By: 02/20/25 0840 DD/ 0837 TD/TT: On Call: SHILOH Ibanez OB [place] [id number], [place] [address] Ultrasound Report Signed Patient: SANNA RENDON MR#: [id number] : 1985 Acct:[id number] Age/Sex: 39 / F ADM Date: 02/19/25 Loc: US Attending Dr: Wilton Herrmann D.O. Ordering Physician: Wilton Herrmann D.O. Date of Service: 02/19/25 Procedure(s): US OB growth Accession Number(s): [id number] cc: Wilton Herrmann D.O.; Physician,Non-Staff M.Ashvin [facility] [place] [id number] Patient Name: SANNA RENDON MRN: [id number] date: 1985 Sex: F Assigned Patient Location: LAB Current Patient Location: Accession/Order Number: [id number] Exam Date: 02/19/2025 19:47 Report Date: 02/20/2025 [...] Pisano M.D. 02/20/2025 8:37 AM Dictation Location: [place] [address] Electronically authenticated by: [id number] Y Date: 02/20/2025 08:37 Dictated By: Pamela Pisano M.D. Signed By: 02/20/25839 DD/ 6 TD/TT: On Call:[facility], Radiologist, - 02/20/2025 [place] [address] Ultrasound Report Signed Patient: SANNA RENDON MR#: [id number] : 1985 Acct:[id number] Age/Sex: 39 / F ADM Date: 02/19/25 Loc: US Attending Dr: Wilton Herrmann D.O. Ordering Physician: Wilton Herrmann D.O. Date of Service: 02/19/25 Procedure(s): US OB growth Accession Number(s): [id number] cc: Wilton Herrmann D.O.; Physician,Non-Staff Tamia [facility] [place] [id number] Patient Name: SANNA RENDON MRN: [facility]:[id number] date: 1985 Sex: F Assigned Patient Location: LAB Current Patient Location: Accession/Order Number: [id number] Exam Date: 02/19/2025 19:47 Report Date: 02/20/2025 [...] Pisano M.D. 02/20/2025 8:37 AM Dictation Location: [place] [address] Electronically authenticated by: [id number] Y Date: 02/20/2025 08:37 Dictated By: Pamela Pisano M.D. Signed By: 02/20/25 0840 DD/ TD/TT: On Call: SHILOH Colon CBC WITH AUTO DIFFon 63-45-4443QULOGRRXM ABSOLUTE AUTO0.0NOMS HealthcareBasophils/100 WBC (Bld)0.2 %0.2 - 2.0 %SHILOH HealthcareEosinophils/100 WBC (Bld)0.3 %Low0.9 - 7.0 %NOMS HealthcareErythrocyte distribution width (RBC) [Ratio]13.1 %11.0 - 15.0 %NOMS HealthcareHematocrit (Bld) [Volume fraction]34.6 %Low36.0 - 48.0 %NOM HealthcareHemoglobin (Bld) [Mass/Vol]12.1 g/dL12.0 - 16.0 g/dLNOKY HealthcareIMMATURE GRANULOCYTES ABS AUTO0.06HighNOKY HealthcareImmature granulocytes/100 WBC (Bld)0.6 %High0.0 - 0.5 %NOMS HealthcareInterpretation and review of laboratory resultsAbnormalNOKY HealthcareLYMPHOCYTES ABSOLUTE AUTO2.3 NOM HealthcareLymphocytes/100 WBC (Bld)24.3 %20.5 - 60.0 %[facility] CenterH (RBC) [Entitic mass]31.7 pg26.7 - 34.0 pgNOFreeman Cancer InstituteMCHC (RBC) [Mass/Vol] 35.0 g/dL29.9 - 35.2 g/dLRanken Jordan Pediatric Specialty HospitalMCV (RBC) [Entitic vol]90.6 fL81.0 - 99.0 fLNOKY HealthcareMONOCYTES ABSOLUTE AUTO0.5NOMS HealthcareMonocytes/100 WBC (Bld)5.6 %1.7 - 12.0 %NOM HealthcareNEUTROPHILS ABSOLUTE AUTO6.6HighNOMS HealthcareNeutrophils/100 WBC (Bld)69.0 %43.0 - 75.0 %[facility] HealthcarePlatelet mean volume (Bld) [Entitic vol]9.7 fL9.5 - 13.5 fLNOFreeman Cancer InstituteTBH EO #0.0NOMS [facility] HospitalTB ZEH327AGOW [facility] HospitalTB RBC3.82LowNOMS [facility] HospitalTB WBC9.6NOKY HealthcareCLINISYNCNOMS HealthcareUrinalysis macro (dipstick) panel (U)on 70-80-1895Xnqarvrxs, UANegativeNegative - 4(70) +++ mg/dLNOMS HealthcareBlood, UANegativeNegative - 50 Max/mcLNOMS HealthcareClarity, UAClearNOMS Healthcare Color, UAYellowNOMS HealthcareGlucose, UANegativeNegative - 2000(110) ++++ mg/dL NOMS HealthcareInterpretation and review of laboratory resultsAbnormalNOKY HealthcareKetones, UANegativeNegative - 160(16) ++++ mg/dLNOKY Healthcare Leukocytes, UATraceNegative - 500+++ John/mcLNOKY HealthcareNitrite, UANegative Negative - PositiveNOMS HealthcarepH, UA6.55 - 9NOMS HealthcareProtein, UA NegativeNegative - 2000(20) ++++ mg/dLNOMS HealthcareSpec Grav, UA1.0051 - 1.03 NOMS HealthcareUrobilinogen, UA2.00.2 - 12 mg/dLNOMS HealthcareNOMS Healthcare CNPNon 86-58-3638MZDNJnsigcdjn (HEMASA) SANNA RENDON ([id number]) 1985 F Date Time Provider Department 01/29/25 [...] Date Reviewed: 12/24/2024 Reviewed by: Katherine Negrete APRN.MASTER CONTROL TECHNICIAN - Fully Assessed Reason for Visit: Fatigue [...] 05/28/2024 Encounter Status:Closed by RACHAEL JOHNSON on 01/30/25[facility]Non 50-41-4041TKMVXbcgldumi (HEMASA) SANNA RENDON ([id number]) 1985 F Date Time Provider Department 01/26/25 [...] Date Reviewed: 12/24/2024 Reviewed by: Penelope, Katherine, CASING INSPECTOR.MASTER CONTROL TECHNICIAN - Fully Assessed Prescriptions as of 01/26/2025 [...] 05/28/2024 Encounter Status:Closed by RACHAEL JOHNSON on 01/26/25NoalCFirelands Regional Medical Center South CampusUrinalysis macro (dipstick) panel (U)on 58-86-2742Knhhsfsmf, UANegative Negative - 4(70) +++ mg/dLNOMS HealthcareBlood, UANegativeNegative - 50 Max/mcL NOMS HealthcareClarity, UAClearNOKY HealthcareColor, UAYellowNOKY Healthcare Glucose, UANegativeNegative - 2000(110) ++++ mg/dLNOMS HealthcareInterpretation and review of laboratory resultsNormalNOKY HealthcareKetones, UANegativeNegative - 160(16) ++++ mg/dLNOMS HealthcareLeukocytes, UANegativeNegative - 500+++ John/mcLNOMS HealthcareNitrite, UANegativeNegative - PositiveNOMS HealthcarepH, UA65 - 9NOMS HealthcareProtein, UANegativeNegative - 2000(20) ++++ mg/dLNOMS HealthcareSpec Grav, UA1.011 - 1.03NOMS HealthcareUrobilinogen, UA0.20.2 - 12 mg/dLNOMS HealthcareNOMS HealthcareTSHon 14-85-8271KVG Qn1.85 m[IU]/LNormal 0.34-5.60Adventhealther [facility] Maryland Hospital CenterComment on above:Performed By: #### [id number] #### [facility] [address], [place] [address]Ynpydwltat macro (dipstick) panel (U)on 39-99-0505Hahjubwro, UA NegativeNegative - 4(70) +++ mg/dLNOMS HealthcareBlood, [...] HealthcareNOMS HealthcareCBC W Auto Differential panel (Bld)on 62-82-9864Ssbcunzrf (Bld) [#/Vol]10*3/uLNormal<0.11CFirelands Regional Medical Center South CampusComment on above:Order Comment: Specimen Type: BLOOD SPECIMENOrdering Facility: [facility] Address:[address] [place], [place] [address]Voabumetl By: #### 32770-0 ####[facility] LABCLIA [id number] [place], [place] [address]Idwhwgvju/100 WBC (Bld)0.2 % NormalRegency Hospital Cleveland East on above:Order Comment: Specimen Type: BLOOD SPECIMENOrdering Facility: [facility] Address:[address] [place], [place] [address]Performed By: #### 42524-4 ####[facility] LABCLIA [id number] [place] [address] Differential cell count method Nom (Bld)AutoNormalClevelCount includes the [facility] Comment on above:Order Comment: Specimen Type: BLOOD SPECIMENOrdering Facility: [facility] Address:[address] [place] [address] Performed By: #### 09133-7 ####[facility] LABCLIA [id number] [place], [place] [address]Qxeloinllyc (Bld) [#/Vol]0.03 10*3/uLNormal<0.46[facility] on above:Order Comment: Specimen Type: BLOOD SPECIMENOrdering Facility: [facility] Address:[address] [place], [place] [address]Performed By: #### 21856-0 ####[facility] LABCLIA [id number] [place], [place] [address]Jgjkjijnfov/100 WBC (Bld)0.4 %NormalRegency Hospital Cleveland East on above:Order Comment: Specimen Type: BLOOD SPECIMENOrdering Facility: [facility] Address:[address] [place], [place] [address]Performed By: #### 00600-0 ####[facility] LABIA [id number] [place], [place] [address]Onusaktoctp distribution width (RBC) [Ratio]13.5 %Qjduak53.5-15.0[facility] on above: Order Comment: Specimen Type: BLOOD SPECIMENOrdering Facility: [facility] Address:[address] [place], [place] [address]Performed By: #### 93493- 8 ####[facility] LABCLIA [id number] [place], [place] [address]Chjwpxdxia (Bld) [Volume fraction]34.6 %Low36.0-46.0 [facility] on above:Order Comment: Specimen Type: BLOOD SPECIMENOrdering Facility: [facility] Address:[address] [place], [place] [address]Performed By: #### 09167-9 ####[facility] LABCLIA [id number] [place], [place] [address]Kspeygjzde (Bld) [Mass/Vol]12.0 g/bZAtcudv34.5-15.5CMorrow County Hospital on above: Order Comment: Specimen Type: BLOOD SPECIMENOrdering Facility: [facility] Address:[address] [place], [place] [address]Performed By: #### 66499- 8 ####[facility] LABCLIA [id number] [place], [place] [address]Adrbmodm granulocytes (Bld) [#/Vol]0.04 10*3/uLNormal <0.10[facility] on above:Order Comment: Specimen Type: BLOOD SPECIMENOrdering Facility: [facility] Address:[address] [place], [place] [address]Performed By: #### 35928-7 ####[facility] LABCLIA [id number] [place], [place] [address]Rslkjfcz granulocytes/100 WBC (Bld)0.5 %NormalRegency Hospital Cleveland East on above: Order Comment: Specimen Type: BLOOD SPECIMENOrdering Facility: [facility] Address:[address] [place], [place] [address]Performed By: #### 85312- 8 ####[facility] LABCLIA [id number] [place], [place] [address]Nvheochxhzw (Bld) [#/Vol]2.45 10*3/uLNormal1.00-4.00 [facility] on above:Order Comment: Specimen Type: BLOOD SPECIMENOrdering Facility: [facility] Address:[address] [place], [place] [address]Performed By: #### 39782-3 ####[facility] LABCLIA [id number] [place], [place] [address]Fhvhngzuanj/100 WBC (Bld)28.7 %NormalRegency Hospital Cleveland East on above:Order Comment: Specimen Type: BLOOD SPECIMENOrdering Facility: [facility] Address:[address] [place], [place] [address]Performed By: #### 59433-1 ####[facility] LABCLIA [id number] [place], [place] [address]JTF (RBC) [Entitic mass]31.6 shMfuzux81.0-34.0[facility] on above:Order Comment: Specimen Type: BLOOD SPECIMENOrdering Facility: [facility] Address:[address] [place], [place] [address]Performed By: #### 28105-4 ####[facility] LABCLIA [id number] [place], [place] [address]JKSD (RBC) [Mass/Vol]34.7 g/eWYsbimy64.5-36.0[facility] on above: Order Comment: Specimen Type: BLOOD SPECIMENOrdering Facility: [facility] Address:[address] [place], [place] [address]Performed By: #### 79678- 8 ####[facility] LABCLIA [id number] [place], [place] [address]RUO (RBC) [Entitic vol]91.1 yBAtzcdv77.0-100.0[facility] on above:Order Comment: Specimen Type: BLOOD SPECIMENOrdering Facility: [facility] Address:[address] [place], [place] [address]Performed By: #### 01731-2 ####[facility] LABCLIA [id number] [place], [place] [address]Ogepgbmyy (Bld) [#/Vol]0.44 10*3/uLNormal<0.87[facility] on above:Order Comment: Specimen Type: BLOOD SPECIMENOrdering Facility: [facility] Address:[address] [place], [place] [address]Performed By: #### 48772- 8 ####[facility] LABCLIA [id number] [place], [place] [address]Mmlcdpqgc/100 WBC (Bld)5.1 %NormalRegency Hospital Cleveland East on above:Order Comment: Specimen Type: BLOOD SPECIMENOrdering Facility: [facility] Address:[address] [place], [place] [address]Performed By: #### 89441-8 ####[facility] LABCLIA [id number] [place], [place] [address]Dwzqrodbadu (Bld) [#/Vol]5.57 10*3/uLNormal1.45-7.50[facility] on above:Order Comment: Specimen Type: BLOOD SPECIMENOrdering Facility: [facility] Address:[address] [place], [place] [address]Performed By: #### 15930-3 ####[facility] LABCLIA [id number] [place], [place] [address]Drqvjhhdfuy/100 WBC (Bld)65.1 %NormalRegency Hospital Cleveland East on above:Order Comment: Specimen Type: BLOOD SPECIMENOrdering Facility: [facility] Address:[address] [place], [place] [address]Performed By: #### 82138-0 ####[facility] LABCLIA [id number] [place], [place] [address]Duloqwfov RBC (Bld) [#/Vol] 10*3/uLNormal<0.01[facility] on above:Order Comment: Specimen Type: BLOOD SPECIMENOrdering Facility: [facility] Address:[address] [place], [place] [address]Performed By: #### 20354-6 ####[facility] LABCLIA [id number] [place], [place] [address]Jyuxohdjs RBC/100 WBC (Bld) [Ratio]0.0 /100 WBCNormal [facility] on above:Order Comment: Specimen Type: BLOOD SPECIMENOrdering Facility: [facility] Address:[address] [place], [place] [address]Performed By: #### 52703-5 ####[facility] LABIA [id number] [place], [place] [address]Vmutxdjk mean volume (Bld) [Entitic vol]9.7 fLNormal9.0-12.7CMorrow County Hospital on above:Order Comment: Specimen Type: BLOOD SPECIMENOrdering Facility: [facility] Address:[address] [place] [address] Performed By: #### 15356-7 ####[facility] LABCLIA [id number] [place], [place] [address]Ocmskiqup (Bld) [#/Vol]260 10*3/xDAnkzul948-068FtompbqqjRegency Hospital [facility] East on above:Order Comment: Specimen Type: BLOOD SPECIMENOrdering Facility: [facility] Address:[address] [place], [place] [address]Performed By: #### 99399-3 ####[facility] LABCLIA [id number] [place], [place] [address]HUT (Bld) [#/Vol]3.80 10*6/uLLow3.90-5.20[facility] on above:Order Comment: Specimen Type: BLOOD SPECIMENOrdering Facility: [facility] Address:[address] [place], [place] [address]Diayhlrfu By: #### 08248-1 ####[facility]PITALIA [id number] [place], [place] [address]PXF (Bld) [#/Vol]8.55 10*3/uL Normal3.70-11.00[facility] HospitalComforest health medical center on above:Order Comment: Specimen Type: BLOOD SPECIMENOrdering Facility: [facility] Address:[address] [place] [address]Pdrqtaneb By: #### 55451-9 ####[facility] LABCLIA [id number] [place], [place] [address]IHHDYWez 26-03-1150DHUWKLUxhmf (SP) Office (HEMASA) SANNA RENDON ([id number]) 1985 F Date Time Provider Department 12/23/24 11:30 AM KATHERINE NEGRETE During your visit today, we recorded the following information about you: Temperature Pulse Respiration Blood pressure 97.6 degrees 80/minute 16/minute 103/69 Weight Height 94.4 kg 1.677 m Katherine Negrete APRN.MASTER CONTROL TECHNICIAN 12/24/2024 9:07 PM Signed NAME: Sanna Rendon CLINIC NO.: [id number] DATE OF SERVICE: December 23, 2024 (Penelope) [...] later in 2018. These were found in [place], [place]. I don't have access to these [...] rash shortly before presenting to [facility] in 2015 with headaches and was [...] vitamin D supplementat (more content not included)...Normal [facility] HospitalComprehensive metabolic 2000 panelon 03-14-9772Ullhujs [Mass/Vol]4.1 g/dLNormal3.9-4.9CMorrow County Hospital on above:Order Comment: Specimen Type: BLOOD SPECIMENOrdering Facility: [facility] Address:[address] [address]Performed By: #### 76833- 8 ####[facility] LABCLIA [id number] F[facility] DUMONTHAVASU REG[facility] MEDICAL CENTERVANESSAERWIN, [place] [address]KVG [Catalytic activity/Vol]43 U/UXndnek77-403PegrrrlyyRegency Hospital [facility] East on above:Order Comment: Specimen Type: BLOOD SPECIMENOrdering Facility: [facility] Address:[address] [place], [place] [address]Performed By: #### 03880-5 ####[facility] LABCLIA [id number] FABI GREENSEHAVASU REGIONAL MEDICAL CENTERTEETEEMINERVA, [place] [address]JUH [Catalytic activity/Vol]11 U/LNormal7-38[facility] on above:Order Comment: Specimen Type: BLOOD SPECIMENOrdering Facility: [facility] Address:[address] [place], [place] [address]Performed By: #### 76706- 8 ####[facility] LABCLIA [id number] [facility] [place], [place] [address]Qcqyk gap [Moles/Vol]12 mmol/LNormal8-15[facility] on above:Order Comment: Specimen Type: BLOOD SPECIMENOrdering Facility: [facility] Address:[address] [place], [place] [address]Performed By: #### 99837-0 ####[facility] LABCLIA [id number] FABI CHERRYHAVASU REGIONAL MEDICAL CENTERVANESSAERWIN, [place] [address]EPX [Catalytic activity/Vol]12 U/OOfy09-96UfinoxmncRegency Hospital [facility] on above:Order Comment: Specimen Type: BLOOD SPECIMENOrdering Facility: [facility] Address:[address] [place], [place] [address]Performed By: #### 29131-6 ####[facility] LABCLIA [id number] [facility] PETERSEHAVASU REGIONAL [place] [address] Bilirubin [Mass/Vol]0.2 mg/dLNormal0.2-1.3CMorrow [facility] Hospital on above:Order Comment: Specimen Type: BLOOD SPECIMENOrdering Facility: [facility] Address:[address] [place], [place] [address]Performed By: #### 50526-2 ####[facility] LABCLIA [id number] [facility] CENTERSESHIELDS, [place] [address]Ybbyvby [Mass/Vol]9.5 mg/dLNormal8.5-10.2CMorrow [facility] Hospital on above:Order Comment: Specimen Type: BLOOD SPECIMENOrdering Facility: [facility] Address:[address] [place], [place] [address]Performed By: #### 49001-5 ####[facility] LABCLIA [id number] [place], [place] [address]Hfnmhntq [Moles/Vol]98 mmol/PZwfyqe49-840TumbqftpdRegency Hospital [facility] East on above:Order Comment: Specimen Type: BLOOD SPECIMENOrdering Facility: [facility] Address:[address] [place], [place] [address]Performed By: #### 35170- 8 ####[facility] LABCLIA [id number] [facility] [place], [place] [address]NL5 [Moles/Vol]20 mmol/VGzv19-47IobtawstgRegency Hospital [facility] East on above:Order Comment: Specimen Type: BLOOD SPECIMENOrdering Facility: [facility] Address:[address] [place], [place] [address]Performed By: #### 97506-5 ####[facility] LABCLIA [id number] [place], [place] [address]Vtiiudzdll [Mass/Vol]0.54 mg/dL Low0.58-0.96[facility] on above:Order Comment: Specimen Type: BLOOD SPECIMENOrdering Facility: [facility] Address:[address] [place], [place] [address]Performed By: #### 75935-0 ####[facility] LABCLIA [id number] [place] [place] [address] eGFRcr SerPlBld CKD-EPI 9015322 mL/min/1.73m???Normal>=60[facility] on above:Order Comment: Specimen Type: BLOOD SPECIMENOrdering Facility: [facility] Address:[address] [place], [place] [address]Chrruc Comment: Estimated Glomerular Filtration Rate (eGFR) is [...] accurately reflect actual GFR. Performed By: #### 89822-0 ####[facility] LABCLIA [id number] [place], [place] [address]Dvmxvuy [Mass/Vol]104 mg/dLHigh 74-99[facility] on above:Order Comment: Specimen Type: BLOOD SPECIMENOrdering Facility: [facility] Address:[address] [place] [address]Itdzqf Comment: The [place] Diabetes Association (ADA) provides guidance for cutoff [...] Standards of Medical Care in Diabetes 2016, [place] [employer] Association. Diabetes Care. 2016.39(Suppl 1).Performed By: #### 27800-0 ####[facility] LABCLIA [id number] [place], [place] [address]Mqxjxpxmp [Moles/Vol]4.0 mmol/LNormal3.7-5.1CMorrow County Hospital on above:Order Comment: Specimen Type: BLOOD SPECIMENOrdering Facility: [facility] Address:[address] [place], [place] [address]Qunknxqvy By: #### 57077-3 ####[facility] LABCLIA [id number] [place], [place] [address]Kosmqtu [Mass/Vol]6.7 g/dLNormal6.3-8.0[facility] on above:Order Comment: Specimen Type: BLOOD SPECIMENOrdering Facility: [facility] Address:[address] [place], [place] [address]Performed By: #### 73139- 8 ####[facility] LABCLIA [id number] [place], [place] [address]Dnpuyj [Moles/Vol]130 mmol/XCuu234-400SobfucuxoRegency Hospital Cleveland East on above:Order Comment: Specimen Type: BLOOD SPECIMENOrdering Facility: [facility] Address:[address] [place], [place] [address]Performed By: #### 99517-3 ####[facility] LABCLIA [id number] [place], [place] [address]Ouqg nitrogen [Mass/Vol]7 mg/dL Normal7-21[facility] on above:Order Comment: Specimen Type: BLOOD SPECIMENOrdering Facility: [facility] Address:[address] [place], [place] [address]Performed By: #### 81109-7 ####[facility] LABCLIA [id number] [place] [address] Ferritin SerPl-mCncon 59-30-0317Hwudnexy [Mass/Vol]43.5 ng/wFSnozxz79.7-205.1 [facility] on above:Order Comment: Specimen Type: BLOOD SPECIMENOrdering Facility: [facility] Address:[address] [place], [place] [address]Performed By: #### 80319-5, 2276-4, 2132-9 ####[facility] LABCLIA [id number] [place] [address] [place] AMERICAIron and Iron binding capacity panelon 08-26-2025 Iron [Mass/Vol]80 ug/rMKifsds08-789SpnefbsvdRegency Hospital [facility] East on above: Order Comment: Specimen Type: BLOOD SPECIMENOrdering Facility: [facility] Address:[address] [place], [place] [address]Performed By: #### 63683- 8, 2275-07, 2131-12 ####[facility] LABCLIA [id number] [address] AMERICAIron binding capacity [Mass/Vol]437 ug/xDFdgl731-768ChqiovpauRegency Hospital [facility] on above:Order Comment: Specimen Type: BLOOD SPECIMENOrdering Facility: [facility] Address:[address] [place], [place] [address]Performed By: #### 40722- 8, 2275-07, 2131-12 ####[facility] LABCLIA [id number] [address]Iron/TIBC [Molar ratio]18.3 %Dvxfdq65.0-57.0[facility] on above:Order Comment: Specimen Type: BLOOD SPECIMENOrdering Facility: [facility] Address:[address] [place], [place] [address]Performed By: #### 99340- 8, 2275-07, 2131-12 ####[facility] LABCLIA [id number] [place] [id number] [facility] AMERICAVit B12 [facility] 12-03-0175Vckhsnxsm (Vitamin B12) [Mass/Vol]328 pg/lAGdkhvr948-7555XnoeacwnyMorrow County Hospital on above:Order Comment: Specimen Type: BLOOD SPECIMENOrdering Facility: [facility] Address:[address] [place], [place] [address]Performed By: #### 53583-6, 2275-07, 2131-12 ####[facility] LABCLIA [id number] [place] [id number] [facility] CENTERTB UA (CLEAN/CATCH) MANAGER INTEGRITY/MICRO IF IND.on 12-38-9067UQPNXPMCC URINENegativeNEGATIVENOMS HealthcareBLOOD URINENegative NEGATIVENOMS HealthcareClarity (U)CLEARCLEARNOMS HealthcareColor (U)LT. YELLOW YELLOWNOMS HealthcareGLUCOSE URINE UANegativeNEGATIVE mg/dLNOMS Healthcare Interpretation and review of laboratory resultsAbnormalNOMS HealthcareKetones Ql (U)NegativeNEGATIVE mg/dLNOMS HealthcareLeukocyte esterase Test strip Ql (U) SMALLAbnormalNEGATIVENOMS HealthcareNITRITE URINENegativeNEGATIVENOMS Healthcare pH (U)6.0 [pH]5.0 - 9.0NOMS HealthcarePROTEIN URINENegativeNEG/TRACE mg/dLNOMS HealthcareSPECIFIC GRAVITY URINE<=1.026Bxohvglz4.005 - 1.025NOMS HealthcareURINE MICROSCOPIC INDICATEDYESNOMS HealthcareUROBILINOGEN URINE0.2 EU/dL0.2 - 1.0 EU/dLNOKY HealthcareCLINISYNCNOMS HealthcareUS OB CERVICAL LENGTHon 12-16-[address] [address] Ultrasound Report Signed Patient: SANNA RENDON MR#: [id number] : 1985 Acct:[id number] Age/Sex: 39 / F ADM Date: Loc: [facility] 251-[address]: Wilton Herrmann D.O. Ordering Physician: Wilton Herrmann D.O. Date of Service: 12/16/24 Procedure(s): US OB cervical length Accession Number(s): [id number] cc: Wilton Herrmann D.O.; PENELOPE CASAS [address] [address] Patient Name: SANNA RENDON MRN: [id number] date: 1985 Sex: F Assigned Patient Location: [facility] Current Patient Location: Accession/Order Number: [id number] Exam Date: 12/16/2024 20:39 Report Date: 12/16/2024 [...] Beltrán M.D. 12/16/2024 8:41 PM Dictation Location: [facility] Electronically authenticated by: [id number] Y Date: 12/16/2024 20:41 Dictated By: Robert Beltrán D.O. Signed By: 12/16/242042 DD/ 40 TD/TT: On Call:ELVERadiologcarmen Radiologist, - 12/16/2024 [place] [address] Ultrasound Report Signed Patient: SANNA RENDON MR#: [id number] : 1985 Acct:[id number] Age/Sex: 39 / F ADM Date: Loc: [facility] [address]: Wilton Herrmann D.O. Ordering Physician: Wilton Herrmann D.O. Date of Service: 12/16/24 Procedure(s): US OB cervical length Accession Number(s): [id number] cc: Wilton Herrmann D.O.; PENELOPE CASAS [place] [address] Patient Name: SANNA RENDON MRN: [id number] date: 1985 Sex: F Assigned Patient Location: [facility] Current Patient Location: Accession/Order Number: [id number] Exam Date: 12/16/2024 20:39 Report Date: 12/16/2024 [...] Beltrán M.D. 12/16/2024 8:41 PM Dictation Location: [facility] Electronically authenticated by: [id number] Y Date: 12/16/2024 20:41 Dictated By: Robert Beltrán D.O. Signed By: 12/16/242042 DD/ 40 TD/TT: On Call: SHILOH HealthcareRadiology Study observation (narrative)NOMS HealthcareUS OB CERVICAL LENGTHOrdered By: Radiologist Radiology on [id number] [facility] Work Phone: aLL THYROID STIM HORMONEon [id number] Qn1.508 m[IU]/LNOMS HealthcareCLINISYNCNOMS HealthcareUrinalysis macro (dipstick) panel (U)on 37-15-8637Vrznmvvrt, UANegativeNegative - 4(70) +++ mg/dLNOKY Healthcare Blood, UANegativeNegative - 50 Max/mcLNOKY HealthcareClarity, UAClearNOMS HealthcareColor, UAYellowNOMS HealthcareGlucose, UANegativeNegative - 2000(110) ++++ mg/dLNOKY HealthcareInterpretation and review of laboratory resultsNormal NOM HealthcareKetones, UANegativeNegative - 160(16) ++++ mg/dLNOKY Healthcare Leukocytes, UANegativeNegative - 500+++ John/mcLNOKY HealthcareNitrite, UA NegativeNegative - PositiveNOMS HealthcarepH, UA65 - 9NOMS HealthcareProtein, UA NegativeNegative - 2000(20) ++++ mg/dLNOKY HealthcareSpec Grav, UA1.011 - 1.03 NOMS HealthcareUrobilinogen, UA1.00.2 - 12 mg/dLNOKY HealthcareNOKY Healthcare Urinalysis macro (dipstick) panel (U)on 70-42-6339Blmglwfyl, UANegativeNegative - 4(70) +++ mg/dLNOMS HealthcareBlood, UANegativeNegative [...] 12 mg/dLNOMS HealthcareNOMS HealthcareGlucose random or fasting- [facility]19-2024 External Glucose Fasting Or Random (Fbs)94[facility] Health NetworkUrinalysis macro (dipstick) panel (U)on 98-20-6424Esqnynpld, UA NegativeNegative - 4(70) +++ mg/dLNOMS HealthcareBlood, [...] 1.03NOMS HealthcareUrobilinogen, UA0.20.2 - 12 mg/dLNOMS HealthcareNOMS Ziqwazzcvz52([place])D3 SerPl-[facility] Hillon [id number]-zqraeufojtmcxs D3 [Mass/Vol]32.1 ng/sLQefgiu60.0-80.0[facility] on above:Order Comment: Specimen Type: BLOOD SPECIMENOrdering Facility: [facility] Address:[address] [place], [place] [address]Result Comment: Classification of 25 [place] Vitamin D status: Deficiency/Insufficiency: < or = 30 ng/ml. Sufficiency/Optimal Levels: 31-80 ng/mL Toxicity: > 100 ng/mL. Test performed by chemiluminescent immunoassay.Performed By: #### 1989-3 ####[facility] LABCLIA [id number] [address] Auto Differential panel (Bld)on 12-87-6665Wtnzxnuwg (Bld) [#/Vol]0.03 10*3/uLNormal<0.11CFirelands Regional Medical Center South CampusComment on above:Order Comment: Specimen Type: BLOOD SPECIMENOrdering Facility: [facility] Address:[address] [place], [place] [address]Performed By: #### 86429-3 ####[facility] LABIA [id number] [place], [place] [address]Lawfwjqpg/100 WBC (Bld)0.3 % NormalRegency Hospital [facility] on above:Order Comment: Specimen Type: BLOOD SPECIMENOrdering Facility: [facility] Address:[address] [place], [place] [address]Performed By: #### 46168-9 ####[facility] LABCLIA [id number] [place] [address] Differential cell count method Nom (Bld)AutoNormalCFirelands Regional Medical Center South Campus Comment on above:Order Comment: Specimen Type: BLOOD SPECIMENOrdering Facility: [facility] Address:[address] [place] [address] Performed By: #### 64291-6 ####[facility] LABCLIA [id number] [place], [place] [address]Ahxtsospvaa (Bld) [#/Vol]0.05 10*3/uLNormal<0.46[facility] on above:Order Comment: Specimen Type: BLOOD SPECIMENOrdering Facility: [facility] Address:[address] [place], [place] [address]Performed By: #### 01478-4 ####[facility] LABCLIA [id number] [place], [place] [address]Ubidhfdoxud/100 WBC (Bld)0.5 %NormalRegency Hospital [facility] East on above:Order Comment: Specimen Type: BLOOD SPECIMENOrdering Facility: [facility] Address:[address] [place], [place] [address]Performed By: #### 49126-9 ####[facility] LABCLIA [id number] [place], [place] [address]Btaunlfbanv distribution width (RBC) [Ratio]14.5 %Oywwnd71.5-15.0[facility] on above: Order Comment: Specimen Type: BLOOD SPECIMENOrdering Facility: [facility] Address:[address] [place], [place] [address]Performed By: #### 53183- 8 ####[facility] LABCLIA [id number] [place], [place] [address]Opduphwndj (Bld) [Volume fraction]36.9 %Clfxnl87.0-46.0 [facility] on above:Order Comment: Specimen Type: BLOOD SPECIMENOrdering Facility: [facility] Address:[address] [place], [place] [address]Performed By: #### 19488-8 ####[facility] LABIA [id number] [place], [place] [address]Upiafkaxww (Bld) [Mass/Vol]13.0 g/aWGocmpw60.5-15.5CMorrow County Hospital on above: Order Comment: Specimen Type: BLOOD SPECIMENOrdering Facility: [facility] Address:[address] [place], [place] [address]Performed By: #### 70658- 8 ####[facility] LABCLIA [id number] [place], [place] [address]Yaqegvhi granulocytes (Bld) [#/Vol]10*3/uLNormal<0.10 [facility] on above:Order Comment: Specimen Type: BLOOD SPECIMENOrdering Facility: [facility] Address:[address] [place], [place] [address]Performed By: #### 54209-4 ####[facility] LABCLIA [id number] [place], [place] [address]Dihamksw granulocytes/100 WBC (Bld)0.2 %NormalRegency Hospital [facility] on above: Order Comment: Specimen Type: BLOOD SPECIMENOrdering Facility: [facility] Address:[address] [place], [place] [address]Performed By: #### 60772- 8 ####[facility] LABIA [id number] [place], [place] [address]Gnbmrdvbwya (Bld) [#/Vol]2.50 10*3/uLNormal1.00-4.00 [facility] on above:Order Comment: Specimen Type: BLOOD SPECIMENOrdering Facility: [facility] Address:[address] [place], [place] [address]Performed By: #### 51183-2 ####[facility] LABIA [id number] [place], [place] [address]Mdmcgdzwzvt/100 WBC (Bld)26.3 %NormalRegency Hospital [facility] on above:Order Comment: Specimen Type: BLOOD SPECIMENOrdering Facility: [facility] Address:[address] [place], [place] [address]Performed By: #### 98007-2 ####[facility] LABIA [id number] [place], [place] [address]CBB (RBC) [Entitic mass]30.6 ziCdbvwn02.0-34.0[facility] on above:Order Comment: Specimen Type: BLOOD SPECIMENOrdering Facility: [facility] Address:[address] [place], [place] [address]Performed By: #### 83542-8 ####[facility] LABCLIA [id number] [place], [place] [address]TXBL (RBC) [Mass/Vol]35.2 g/fDIpmbdk24.5-36.0[facility] on above: Order Comment: Specimen Type: BLOOD SPECIMENOrdering Facility: [facility] Address:[address] [place], [place] [address]Performed By: #### 30660- 8 ####[facility] LABCLIA [id number] [place], [place] [address]FVG (RBC) [Entitic vol]86.8 nVQwfajv49.0-100.0[facility] on above:Order Comment: Specimen Type: BLOOD SPECIMENOrdering Facility: [facility] Address:[address] [place], [place] [address]Performed By: #### 25981-7 ####[facility] LABCLIA [id number] [place], [place] [address]Mkspdchhp (Bld) [#/Vol]0.44 10*3/uLNormal<0.87[facility] on above:Order Comment: Specimen Type: BLOOD SPECIMENOrdering Facility: [facility] Address:[address] [place], [place] [address]Performed By: #### 20872- 8 ####[facility] LABCLIA [id number] [place], [place] [address]Zwmobhstt/100 WBC (Bld)4.6 %NormalRegency Hospital [facility] on above:Order Comment: Specimen Type: BLOOD SPECIMENOrdering Facility: [facility] Address:[address] [place], [place] [address]Performed By: #### 93434-3 ####[facility] LABCLIA [id number] [place], [place] [address]Abnnnfialaz (Bld) [#/Vol]6.48 10*3/uLNormal1.45-7.50[facility] on above:Order Comment: Specimen Type: BLOOD SPECIMENOrdering Facility: [facility] Address:[address] [place], [place] [address]Performed By: #### 27185-1 ####[facility] LABCLIA [id number] [place], [place] [address]Jlrnamekifp/100 WBC (Bld)68.1 %NormalRegency Hospital [facility] on above:Order Comment: Specimen Type: BLOOD SPECIMENOrdering Facility: [facility] Address:[address] [place], [place] [address]Performed By: #### 06991-8 ####[facility] LABCLIA [id number] [place], [place] [address]Fswzsdtov RBC (Bld) [#/Vol] 10*3/uLNormal<0.01[facility] on above:Order Comment: Specimen Type: BLOOD SPECIMENOrdering Facility: [facility] Address:[address] [place], [place] [address]Performed By: #### 85668-3 ####[facility] LABCLIA [id number] [place], [place] [address]Wnnjzvpzl RBC/100 WBC (Bld) [Ratio]0.0 /100 WBCNormal [facility] on above:Order Comment: Specimen Type: BLOOD SPECIMENOrdering Facility: [facility] Address:[address] [place], [place] [address]Performed By: #### 18062-9 ####[facility] LABIA [id number] [place], [place] [address]Koxrfblt mean volume (Bld) [Entitic vol]9.8 fLNormal9.0-12.7CMorrow County Hospital on above:Order Comment: Specimen Type: BLOOD SPECIMENOrdering Facility: [facility] Address:[address] [place] [address] Performed By: #### 93788-1 ####[facility] LABCLIA [id number] [place], [place] [address]Yxnkmkpql (Bld) [#/Vol]327 10*3/uMCpekgl470-911NjoyqubwaRegency Hospital [facility] on above:Order Comment: Specimen Type: BLOOD SPECIMENOrdering Facility: [facility] Address:[address] [place], [place] [address]Performed By: #### 27144-5 ####[facility] LABIA [id number] [place], [place] [address]MYK (Bld) [#/Vol]4.25 10*6/uLNormal3.90-5.20[facility] on above:Order Comment: Specimen Type: BLOOD SPECIMENOrdering Facility: [facility] Address:[address] [place], [place] [address]Performed By: #### 79216-8 ####[facility] LABIA [id number] [place], [place] [address]EPF (Bld) [#/Vol]9.52 10*3/uLNormal3.70-11.00[facility] on above: Order Comment: Specimen Type: BLOOD SPECIMENOrdering Facility: [facility] Address:[address] [place], [place] [address]Performed By: #### 94947- 8 ####[facility] LABIA [id number] [place], [place] [address]IBHDSRve 17-91-8685VTPPRYCcbtx (SP) Office (HEMASA) SANNA RENDON ([id number]) 1985 F Date Time Provider Department 10/28/24 2:30 PM KATHERINE NEGRETE During your visit today, we recorded the following information about you: Temperature Pulse Respiration Blood pressure 97 degrees 82/minute 16/minute 122/77 Weight Last Period 94.1 kg 10/28/24 Katherine Negrete APRN.MASTER CONTROL TECHNICIAN 10/29/2024 9:44 PM Signed NAME: Sanna Rendon CLINIC NO.: [id number] DATE OF SERVICE: October 28, 2024 (Penelope) [...] later in 2018. These were found in [place], [place]. I don't have access to these [...] rash shortly before presenting to [facility] in 2016 with headaches and was [...] negative. Numbness and vi (more content not included)...NormalCleveland Clinic Hillcrest Hospital Sisi 12-53-5446XZQLGhrulpjgw (NCCAP) SANNA RENDON ([id number]) 1985 F Date Time Provider Department 10/28/24 [...] 05/28/2024 Encounter Status:Closed by RACHAEL JOHNSON on 11/05/24NormalCSelect Medical [facility] Rehabilitation Hospital - Dublinprehensive metabolic 2000 panelon 60-48-6506Xfjfeay [Mass/Vol]4.4 g/dLNormal3.9-4.9CMorrow County Hospital on above:Order Comment: Specimen Type: BLOOD SPECIMENOrdering Facility: [facility] Address:[address] [place], [place] [address]Performed By: #### 33333-2 ####[facility] LABCLIA [id number] [place], [place] [address]XQX [Catalytic activity/Vol]55 U/WZprndy72-985XvkogffozRegency Hospital [facility] on above:Order Comment: Specimen Type: BLOOD SPECIMENOrdering Facility: [facility] Address:[address] [place], [place] [address]Performed By: #### 72351-3 ####[facility] LABCLIA [id number] [place], [place] [address]HIT [Catalytic activity/Vol]18 U/LNormal7-38[facility] on above:Order Comment: Specimen Type: BLOOD SPECIMENOrdering Facility: [facility] Address:[address] [place], [place] [address]Performed By: #### 77648- 8 ####[facility] LABCLIA [id number] [facility] [place], [place] [address]Bxzwc gap [Moles/Vol]12 mmol/LNormal8-15[facility] on above:Order Comment: Specimen Type: BLOOD SPECIMENOrdering Facility: [facility] Address:[address] [place], [place] [address]Performed By: #### 67670-2 ####[facility] LABCLIA [id number] [facility] [place], [place] [address]NRE [Catalytic activity/Vol]13 U/PYkmahx10-05GfrubhzlgRegency Hospital [facility] on above:Order Comment: Specimen Type: BLOOD SPECIMENOrdering Facility: [facility] Address:[address] [place], [place] [address]Performed By: #### 93918-4 ####[facility] LABCLIA [id number] [place] [address] Bilirubin [Mass/Vol]0.2 mg/dLNormal0.2-1.3CMorrow County Hospital on above:Order Comment: Specimen Type: BLOOD SPECIMENOrdering Facility: [facility] Address:[address] [place], [place] [address]Performed By: #### 19812-6 ####[facility] LABCLIA [id number] [facility] [place], [place] [address]Uxqqsal [Mass/Vol]9.9 mg/dLNormal8.5-10.2CMorrow County Hospital on above:Order Comment: Specimen Type: BLOOD SPECIMENOrdering Facility: [facility] Address:[address] [place], [place] [address]Performed By: #### 60305-1 ####[facility] LABIA [id number] [place], [place] [address]Dfnjgcwe [Moles/Vol]99 mmol/ILnlted75-908PwieqbpyuRegency Hospital [facility] on above:Order Comment: Specimen Type: BLOOD SPECIMENOrdering Facility: [facility] Address:[address] [place], [place] [address]Performed By: #### 05760- 8 ####[facility] LABCLIA [id number] [place], [place] [address]WM2 [Moles/Vol]22 mmol/VCupooq40-87XtscxcpuoRegency Hospital [facility] on above:Order Comment: Specimen Type: BLOOD SPECIMENOrdering Facility: [facility] Address:[address] [place], [place] [address]Performed By: #### 36113-8 ####[facility] LABCLIA [id number] [place], [place] [address]Ihyibilbdb [Mass/Vol]0.60 mg/dL Normal0.58-0.96[facility] on above:Order Comment: Specimen Type: BLOOD SPECIMENOrdering Facility: [facility] Address:[address] [place], [place] [address]Performed By: #### 46901-4 ####[facility] LABCLIA [id number] [place], [place] [address]Ycawlaiszo and Glomerular filtration rate.predicted panel (S/P/Bld)117 mL/min/1.73m???Normal>=60[facility] on above:Order Comment: Specimen Type: BLOOD SPECIMENOrdering Facility: [facility] Address:[address] [place], [place] [address]Result Comment: Estimated Glomerular Filtration Rate (eGFR) is [...] not accurately reflect actual GFR.Performed By: #### 11029-1 ####[facility] LABCLIA [id number] [place], [place] [address]Fmrzbtq [Mass/Vol]101 mg/gWNfni72-33IybglvjxcRegency Hospital [facility] East on above:Order Comment: Specimen Type: BLOOD SPECIMENOrdering Facility: [facility] Address:[address] [place] [address]Kzegnk Comment: The [place] Diabetes Association (ADA) provides guidance for cutoff [...] Standards of Medical Care in Diabetes 2016, [place] Diabetes Association. Diabetes Care. 2016.39(Suppl 1).Performed By: #### 29037-8 ####[facility] LABCLIA [id number] [place], [place] [address]Wgkoiasyv [Moles/Vol]3.5 mmol/LLow3.7-5.1CMorrow County Hospital on above:Order Comment: Specimen Type: BLOOD SPECIMENOrdering Facility: [facility] Address:[address] [place], [place] [address]Performed By: #### 59064-5 ####[facility] LABCLIA [id number] [place], [place] [address]Azjpzzt [Mass/Vol]7.6 g/dL Normal6.3-8.0[facility] on above:Order Comment: Specimen Type: BLOOD SPECIMENOrdering Facility: [facility] Address:[address] [place] [address]Wjvscdlah By: #### 04069-9 ####[facility] LABCLIA [id number] [place] [address] Sodium [Moles/Vol]133 mmol/ZWsv235-299MkpxwkeohRegency Hospital [facility] on above:Order Comment: Specimen Type: BLOOD SPECIMENOrdering Facility: [facility] Address:[address] [place], [place] [address]Performed By: #### 09218-6 ####[facility] LABCLIA [id number] [place], [place] [address]Xfir nitrogen [Mass/Vol]7 mg/dLNormal7-21C[facility] Clinic Hillcrest HospitalComment on above:Order Comment: Specimen Type: BLOOD SPECIMENOrdering Facility: [facility] Address:[address] [place], [place] [address]Performed By: #### 47719-1 ####[facility] LABCLIA [id number] [place], [place] [address]Xvoompoa SerPl-mCncon 60-52-1958Mavzeuia [Mass/Vol]99.6 ng/uZYivpbr09.7-205.1CFirelands Regional Medical Center South CampusComforest health medical center on above:Order Comment: Specimen Type: BLOOD SPECIMENOrdering Facility: [facility] Address:[address] [place], [place] [address]Performed By: #### 2276-4, 66899-6, 9, 3016-3 ####[facility] LABCLIA [id number] [place] [address] [place] OF AMERICAIron and Iron binding capacity panelon 04-37-8496Ilya [Mass/Vol]72 ug/uIMvbuas19-653CnofizbxrCleveland Clinic Hillcrest Hospital Comment on above:Order Comment: Specimen Type: BLOOD SPECIMENOrdering Facility: [facility] Address:[address] [place] [address] Performed By: #### 2276-4, 26461-6, 9, 3016-3 ####[facility] LABCLIA [id number] [place] [address] [place] AMERICAIron binding capacity [Mass/Vol]399 ug/aYXoyv656-452OdjwvzgvxCleveland Clinic Hillcrest HospitalComforest health medical center on above:Order Comment: Specimen Type: BLOOD SPECIMENOrdering Facility: [facility] Address:[address] [place], [place] [address]Performed By: #### 2276-4, 52366-8, 2131-12, 6-3 ####[facility] LABCLIA [id number] [address] [address] [place] [facility] HOSPITALIron/TIBC [Molar ratio]18.0 % Ifiqym26.0-57.0[facility] on above:Order Comment: Specimen Type: BLOOD SPECIMENOrdering Facility: [facility] Address:[address] [place] [address] [place] [id number] By: #### 2276-4, 58714-5, 2131-12, 6-3 ####[facility] LABIA [id number] [place] [id number] [facility] SOUTHTSAlhambra Hospital [facility] 10-28-2024 Thyroid Stimulating (3Rd Generation) Hormone/ Tsh1.25[facility] SerPl-aCncon 29-67-3914CUK Qn1.250 m[IU]/LNormal 0.270-4.200[facility] on above:Order Comment: Specimen Type: BLOOD SPECIMENOrdering Facility: [facility] Address:[address] [place] [address] [place], [place] [address]Result Comment: If the patient is , TSH reference range varies by gestational period: First Trimester (weeks 9-12): 0.180-2.990 mIU/L Second Trimester: 0.110-3.980 mIU/L Third Trimester: 0.480-4.710 mIU/L Danny Varela et al. A Practical Approach for the Verifications and Determination of Site- and Trimester-Specific Reference Intervals for Thyroid Function tests in . Thyroid, 2019:29:3:412-420.Saeed E, et al. 2017 Guidelines of the [place] Thyroid Association for the Diagnosis and Management of Thyroid Disease during and the . Thyroid, 2017:27:3:315-389. Performed By: #### 2276-4, 40901-5, 9, 6-3 ####[facility] LABCLIA [id number] [address] [address] [facility] SOUTHVit B12 SerPl-mCncon 71-89-0145Knfbsraur (Vitamin B12) [Mass/Vol]483 pg/wSOyaqmg516-1115YwylwwdewMorrow County Hospital on above: Order Comment: Specimen Type: BLOOD SPECIMENOrdering Facility: [facility] Address:[address] [place], [place] [address]Performed By: #### 2276- 4, 81992-5, 2132-9, 3016-3 ####[facility] LABCLIA [id number] [facility] [id number] [place], [place] [address] [facility] OF AMERICACNPNon 33-14-4318RHECSbhrgigcv (HEMASA) SANNA RENDON ([id number]) 1985 F Date Time Provider Department 10/24/24 [...] Date Reviewed: 08/26/2024 Reviewed by: Katherine Negrete APRN.MASTER CONTROL TECHNICIAN - Fully Assessed Reason for Visit: [...] 05/28/2024 Encounter Status:Closed by KAUR DUNHAM on 10/24/24[facility] OB TRANSVAGINALon 63-57-7492RT OB TRANSVAGINALEXAM: US OB TRANSVAGINAL HISTORY: Viability, [...] II, MD, PHD at 21-Oct-2024 08:31:21 AM [facility] TeleradiologyNormalNot AvailableComment on above:Order Comment: US OB VIABILITY PLEASE PERFORM TRANSVAGINAL ULTRASOUND IF INDICATED No LMP recorded.ALL CBC WITH AUTO DIFFon 23-69-5409LASWYCIRZ ABSOLUTE SECB2BMHQ HealthcareBasophils/100 WBC (Bld)0.2 %0.2 - 2.0 %NOMS [...] HealthcareMCHC (RBC) [Mass/Vol] 34.6 g/dL29.9 - 35.2 g/dLNOKY HealthcareMCV (RBC) [Entitic vol]86.2 fL81.0 - 99.0 fLNOMS HealthcareMONOCYTES ABSOLUTE AUTO0.6NOMS HealthcareMonocytes/100 WBC (Bld)7.2 %1.7 - 12.0 %NOMS HealthcareNEUTROPHILS ABSOLUTE AUTO5.6NOFreeman Cancer Institute Neutrophils/100 WBC (Bld)62.8 %43.0 - 75.0 %NOMS HealthcarePlatelet mean volume (Bld) [Entitic vol]10.1 fL9.5 - 13.5 fLNOFreeman Cancer InstituteTB EO #0NOFreeman Cancer Institute TBH FZV385JKENSaint Francis Medical [facility] RBC4.42NOFreeman Cancer InstituteTB WBC8.9NOFreeman Cancer Institute CLINISYNCDrug Screen, Urineon 23-76-0815Cwhalugoaky/MethamphetamineNegative Wilson Healthedica Health SystemBarbituratesNegativeVermont State HospitalMedica Health System BenzodiazepinesNegativeProMedica Health SystemCocaine MetaboliteNegative ProMedica Health SystemEcstasyNegativeVermont State HospitalMedica Health SystemMethadoneNegative Wilson Healthedica Health SystemOpiatesNegativeVermont State HospitalMedica Health SystemOxycodoneNegative Wilson Healthedica Health SystemPhencyclidineNegativeVermont State HospitalMedica Health SystemThc Marijuana, UrineNegativeMercer County Community Hospitalca Health SystemHBV surface Ag IA Qlon 10-06-2024 Hepatitis B Surface AntigenNegativeHocking Valley Community Hospital SystemHIV 1+2 Ab+HIV1 p24 Ag IA Qlon 07-72-4587CLN 1&2 AB/AGNegativeHocking Valley Community Hospital SystemHemoglobin A1con 81-68-6899TzV8l (Bld) [Mass fraction]5.9 %4.0 - 6.0 %[facility] SystemNo Panel Informationon 77-35-2426OQVD HealthcareTSHon 96-45-6975Hskodrr Stimulating (3Rd Generation) Hormone/ Tsh1.131[facility] SystemType and screenon 45-65-8804Hns/Rh(D)NegativeProCleveland ClinicHCG ( test) Ql (U)on 51-07-1471Smbjfdtazgunbn and review of laboratory resultsAbnormalRanken Jordan Pediatric Specialty Hospital Preg Test, UrPositiveNegativeSainte Genevieve County [facility] HealthcareUrinalysis macro (dipstick) panel (U)on 52-94-3730Qoatxmklg, UANegativeNegative - 4(70) +++ mg/dL NOMS HealthcareBlood, [...] - 12 mg/dLNOMS HealthcareNOMS HealthcareUS OB TRANSVAGINALon 62-25-0738[place]zpD[place] [address] Ultrasound Report Signed Patient: SANNA RENDON MR#: [id number] : 1985 Acct:[id number] Age/Sex: 38 / F ADM Date: 09/11/24 Loc: US Attending Dr: Wilton Herrmann D.O. Ordering Physician: Wilton Herrmann D.O. Date of Service: 09/11/24 Procedure(s): US OB transvaginal Accession Number(s): [id number] cc: Wilton Herrmann D.O.; PENELOPE CASAS [place] [id number] Patient Name: SANNA RENDON MRN: [id number] date: 1985 Sex: F Assigned Patient Location: [place] Current Patient Location: [place] Accession/Order Number: [id number] Exam Date: 09/11/2024 11:34 Report Date: 09/11/2024 [...] Montano M.D. 09/11/2024 11:36 AM Dictation Location: [place] [address] Electronically authenticated by: [id number] Y Date: 09/11/2024 11:36 Dictated By: Prudence Montano M.D. Signed By: 09/11/24 1138 DD/ 1136 TD/TT: On Call:TBHRadiology, Radiologist, MD - 09/11/2024 [place] [address] Ultrasound Report Signed Patient: SANNA RENDON MR#: [id number] : 1985 Acct:[id number] Age/Sex: 38 / F ADM Date: 09/11/24 Loc: US Attending Dr: Wilton Herrmann D.O. Ordering Physician: Wilton Herrmann D.O. Date of Service: 09/11/24 Procedure(s): US OB transvaginal Accession Number(s): [id number] cc: Wilton Herrmann D.O.; PENELOPE CASAS [address] [address] Patient Name: SANNA RENDON MRN: [id number] date: 1985 Sex: F Assigned Patient Location: US Current Patient Location: US Accession/Order Number: [id number] Exam Date: 09/11/2024 11:34 Report Date: 09/11/2024 [...] Montano M.D. 09/11/2024 11:36 AM Dictation Location: [place] [address] Electronically authenticated by: [id number] Y Date: 09/11/2024 11:36 Dictated By: Prudence Montano M.D. Signed By: 09/11/24 1138 DD/ 1136 TD/TT: On Call: SHILOH HealthcareRadiology Study observation (narrative)[facility] OB TRANSVAGINALOrdered By: Radiologist Radiology on [id number] Work Phone: [facility] Quanton [id number] subunit [id number] m[IU]/mLHigh1-3[facility] CenterComment on above:Result Comment: 'F NON < 1 - 3' ' 0.2 - 1 WEEK = 5 TO 50' ' 1 - 2 WEEKS = 50 - 500' ' 2 - 3 WEEKS = 100 - 5000' ' 3 - 4 WEEKS = 500 - 51489' ' 4 - 5 WEEKS = 1000 - 09648' ' 5 - 6 WEEKS = 25513 - 508426' ' 6 - 8 WEEKS = 67387 - 557704' ' 8 - 12 WEEKS = 59974 - 860367'Performed By: #### [id number] #### [facility] [address] [place], [place] 53171Hqlpbczysm Visit Summaryon 04-56-8356Rphlxzqkrm Visit Summary Ambulatory Visit Summary SANNA RENDON :1985 Visit Date:09/07/2024 Ambulatory Visit Instructions Your Diagnosis Viral URI with cough Cough Your Care Team Attending Physician - Romulo Chiu PA-C Primary Care Physician - Penelope CASAS DO, FAAFP This Is Your Medications List Contact prescribing physician if questions or concerns enoxaparin (Lovenox 40 mg/0.4 mL Injection) ergocalciferol (Vitamin D) fluticasone nasal (Flonase 0.05 mg/inh Wing) levothyroxine (levothyroxine 25 mcg (0.025 mg) Tab) [...] CASAS DO, FAAFP Where: [facility] [address], [place] [address]- Medications What How Much When Instructions Unchanged enoxaparin (Lovenox 40 mg/ 0.4 mL Injection) 40 Milligram Subcutaneous Every 24 hours Contact prescribing physician if questions or concerns Unchanged ergocalciferol (Vitamin D) 2,000 International unit By Mouth Every week Contact prescribing physician if questions or concerns Unchanged fluticasone nasal (Flonase 0.05 mg/ inh Wing) 2 Sprays Nasal Inhalation Every day each [...] you for choosing us for your care. [facility] Medicine Office/Clinic Noteon 11-60-6695Mivfxv Medicine Office/Clinic NoteM[facility]/Clinic Note Chief Complaint cough, [...] created with voice recognition software. Occasional wrong-word or???ggsrn-n-fkdz??? substitutions may have occurred due to the [...] days ago on Sunday. Has been using hyki-rit-kkwirhm cough drops and Flonase for her allergies. [...] duration. Discussed antibiotics un (more content not included)...[facility] HospitalComment on above:Result Comment: Electronically Signed By: Aram QUINTEROS, Romulo Lynn\\.br\\Date and Time Signed: 09/07/2509:46 EDTCNPNon 29-25-7017EGAMZlbpmuuob (HEMASA) SANNA RENDON ([id number]) 1985 F Date Time Provider Department 09/02/24 [...] Date Reviewed: 08/26/2024 Reviewed by: Katherine Negrete APRN.MASTER CONTROL TECHNICIAN - Fully Assessed Reason for Visit: [...] 05/28/2024 Encounter Status:Closed by RACHAEL JOHNSON on 09/03/24[facility] Quanton 85-46-4904YMA.beta subunit Qn558 m[IU]/mLHigh1-3[facility] CenterComment on above:Result Comment: 'F NON < 1 - 3' ' 0.2 - 1 WEEK = 5 TO 50' ' 1 - 2 WEEKS = 50 - 500' ' 2 - 3 WEEKS = 100 - 5000' ' 3 - 4 WEEKS = 500 - 22862' ' 4 - 5 WEEKS = 1000 - 81638' ' 5 - 6 WEEKS = 46323 - 017513' ' 6 - 8 WEEKS = 97555 - 575803' ' 8 - 12 WEEKS = 17342 - 422914'Performed By: #### [id number] #### [facility] [address], [place] [address]YlGK Quanton 41-03-5292AUD.beta subunit Qn188 m[IU]/mLHigh1-3 [facility] CenterComment on above:Result Comment: 'F NON < 1 - 3' ' 0.2 - 1 WEEK = 5 TO 50' ' 1 - 2 WEEKS = 50 - 500' ' 2 - 3 WEEKS = 100 - 5000' ' 3 - 4 WEEKS = 500 - 91927' ' 4 - 5 WEEKS = 1000 - 52948' ' 5 - 6 WEEKS = 82215 - 671507' ' 6 - 8 WEEKS = 85735 - 267070' ' 8 - 12 WEEKS = 49013 - 394957'Performed By: #### [id number] #### [facility] [address], [place] [address]OIWKrc 45-60-0055EBVFYuhobtpwn (HEMASA) SANNA RENDON ([id number]) 1985 F Date Time Provider Department 08/26/24 [...] Date Reviewed: 08/26/2024 Reviewed by: Katherine Negrete APRN.MASTER CONTROL TECHNICIAN - Fully Assessed Reason for Visit: Lab Orders [1688] Primary Visit Diagnosis:Antiphospholipid antibody positive [R76.0] Other Visit Diagnoses: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] Malaise and fatigue [R53.81, R53.83] Vitamin D deficiency [E55.9] Order(s):COMPLETE BLOOD COUNT AND DIFFERENTIAL [SQCBCDIF] Order #: [id number] FUTURE COMPREHENSIVE METABOLIC PANEL [SQCMP] Order #: [id number] FUTURE THYROID STIMULATING HORMONE [SQTSH] Order #: [id number] FUTURE IRON AND TIBC [SQIRON] Order #: [id number] FUTURE FERRITIN [SQFERR] Order #: [id number] FUTURE VITAMIN D 25 HYDROXY [SQVITD] Order #: [id number] FUTURE VITAMIN B12 [SQB12] Order #: [id number] FUTURE Prescriptions as of 08/26/2024 - enoxaparin [...] 05/28/2024 Encounter Status:Closed by KATHERINE NEGRETE on 08/26/24[facility] 24-69-9965OUL.beta subunit Qn83 m[IU]/mLHigh1-3FHolzer Medical Center – JacksonComment on above:Result Comment: 'F NON < 1 - 3' ' 0.2 - 1 WEEK = 5 TO 50' ' 1 - 2 WEEKS = 50 - 500' ' 2 - 3 WEEKS = 100 - 5000' ' 3 - 4 WEEKS = 500 - 39331' ' 4 - 5 WEEKS = 1000 - 75228' ' 5 - 6 WEEKS = 11588 - 749939' ' 6 - 8 WEEKS = 64274 - 078063' ' 8 - 12 WEEKS = 47150 - 639242'Performed By: #### [id number] #### [facility] [address], [place] [address]CcHU Quanton 23-75-5018PNC.beta subunit Qn22 m[IU]/mLHigh1-3 [facility] CenterComment on above:Result Comment: 'F NON < 1 - 3' ' 0.2 - 1 WEEK = 5 TO 50' ' 1 - 2 WEEKS = 50 - 500' ' 2 - 3 WEEKS = 100 - 5000' ' 3 - 4 WEEKS = 500 - 34458' ' 4 - 5 WEEKS = 1000 - 51622' ' 5 - 6 WEEKS = 42197 - 392993' ' 6 - 8 WEEKS = 81648 - 210814' ' 8 - 12 WEEKS = 82737 - 014002'Performed By: #### [id number] #### [facility] [address], [place] [address]JVVXXXOJZJgdozpy By: SYSTEM SYSTEM on 13-40-5767FIP.beta subunit Qn22 m[IU]/mLHigh1 - 3 mIU/mLRemisol ChemComment on above:Result Comment: 'F NON < 1 - 3' ' 0.2 - 1 WEEK = 5 TO 50' ' 1 - 2 WEEKS = 50 - 500' ' 2 - 3 WEEKS = 100 - 5000' ' 3 - 4 WEEKS = 500 - 77451' ' 4 - 5 WEEKS = 1000 - 15140' ' 5 - 6 WEEKS = 70543 - 703809' ' 6 - 8 WEEKS = 12743 - 451736' ' 8 - 12 WEEKS = 14154 - 281546'TSH Qn1.86 m[IU]/LNormal0.34 - 5.60 mcIU/mLRemisol ChemTSHon 51-00-5757UQV Qn1.86 m[IU]/LNormal0.34-5.60[facility] CenterComment on above:Performed By: #### [id number] #### [facility] [address], [place] [address]OYC ( test) Ql (U)on 00-48-3425Hhzvfewppiydir and review of laboratory resultsNoLECOM Health - Corry Memorial HospitalPreg Test, UrNegativeNegative [facility].Interpretation:on 72-99-2277ISC Ab IA QlComment Invalid Interpretation [facility] HospitalComment on above:Result Comment: Not infected with HCV unless early or acute infection is suspected (which may be delayed in an immunocompromised individual), or other evidence exists to indicate HCV infection. Performed at: [address] [id number] PhD Jd Garciaformed By: #### [id number] #### [facility] [address], [place] [address]XCE Antibody RFX to Quant PCRon 50-37-8492MCL Ab IA Ql Non-ReactiveInvalid Interpretation CodeNon ReactiveLakehealth Beachwood Medical Center Comment on above:Result Comment: Performed at: [address] [id number] PhD Jd Garciaformed By: #### [id number] #### [facility] [address], [place] [address]QZX Screen 4th Generation wRfxon 21-83-3539NCI 1+2 Ab+HIV1 p24 Ag IA QlNon-ReactiveInvalid Interpretation CodeNon ReactiveLakehealth Beachwood Medical CenterComment on above:Result Comment: HIV-1/HIV-2 antibodies and HIV-1 p24 antigen were NOT detected. There is no laboratory evidence of HIV infection. HIV Negative Performed at: [address] [id number] [id number] PhD Jd Garciaformed By: #### [id number] #### [facility] [address], [place] [address]Scr Be Agon 13-18-4799YMI e Ag IA QlNegativeInvalid Interpretation CodeNegativeLakehealth Beachwood Medical CenterComment on above:Result Comment: Performed at: [address] [id number] PhD Jd Garciaformed By: #### [id number] #### [facility] [address], [place] [address]Wbw Bs Agon 04-00-9637NCZ surface Ag IA QlNegativeInvalid Interpretation CodeNegativeLakehealth Beachwood Medical CenterComment on above:Result Comment: Performed at: [address] [id number] PhD Jd Garciaformed By: #### [id number] #### [facility] [address], [place] [address]CUJLLRETOZizzqne By: SYSTEM SYSTEM on 35-67-7623Fbncowm [Mass/Vol]5.0 g/dLNormal3.3 - 5.0 gm/dLRemisol ChemAlbumin/Globulin [Mass ratio] 1.6 {ratio}Normal1.1 - 2.2Remisol ChemALP [Catalytic activity/Vol]49 [iU]/d Lzcgsc44 - 98 Int._Unit/LRemisol ChemALT No additional P-5'-P [Catalytic activity/Vol]18 [iU]/dNormal6 - 46 Int._Unit/LRemisol ChemAnion gap [Moles/Vol] 13 mmol/LNormal6 - 16 mEq/LRemisol ChemAST [Catalytic activity/Vol]15 [iU]/d Normal5 - 43 Int._Unit/LRemisol ChemBilirubin [Mass/Vol]0.4 mg/dLNormal0.0 - 1.1 mg/dLRemisol ChemCalcium [Mass/Vol]10.0 mg/dLNormal8.9 - 11.1 mg/dLRemisol Chem Chloride [Moles/Vol]100 mmol/SFgh487 - 111 mmol/LRemisol ChemCO2 [Moles/Vol]25 mmol/EZwolih63 - 31 mmol/LRemisol ChemCreatinine [Mass/Vol]0.7 mg/dLNormal0.5 - 1.3 mg/dLRemisol PqeggGSK554 mL/min/1.73 a9Olkzai>=59mL/min/1.73 q4Pmbkjxd Chem Globulin (S) [Mass/Vol]3.1 g/dLNormal1.4 - 4.0 gm/dLRemisol ChemGlucose [Mass/Vol]82 mg/mCMplusw32 - 199 mg/dLRemisol ChemPotassium [Moles/Vol]3.8 mmol/LNormal3.5 - 5.3 mmol/LRemisol ChemProtein [Mass/Vol]8.1 g/dLHigh6.0 - 7.8 gm/dLRemisol ChemSodium [Moles/Vol]134 mmol/ZYcd180 - 145 mmol/LRemisol ChemUrea nitrogen [Mass/Vol]7 mg/dLNormal5 - 21 mg/dLRemisol ChemUrea nitrogen/Creatinine [Mass ratio]10 mg/mqSptpor40 - 20Remisol ChemCMPon 23-17-9392Etgjuxz [Mass/Vol]5.0 g/dLNormal3.3-5.0[facility] Comment on above:Performed By: #### [id number] #### [facility] [address], [place] [address]Hrvqxmb/Globulin (S) [Mass conc ratio]1.0Syowuu9.1-2.2FHolzer Medical Center – JacksonComment on above:Performed By: #### [id number] #### [facility] [address] [place] [address]ILF [Catalytic activity/Vol]49 Int._Unit/XGdfabu83-83MyxxmcLakehealth Beachwood Medical CenterComment on above:Performed By: #### [id number] #### [facility] [address], [place] [address]BGK No additional P-5'-P [Catalytic activity/Vol]18 Int._Unit/L Normal6-46[facility] Medical CenterComment on above:Performed By: #### [id number] #### [facility] [address] [place] [address]Siyvc gap [Moles/Vol]13 mmol/LNormal6-16[facility] CenterComment on above:Performed By: #### [id number] #### [facility] [address] [place] [address]XYQ [Catalytic activity/Vol]15 Int._Unit/LNormal5-43[facility] CenterComment on above:Performed By: #### [id number] #### [facility] [address] [place] [address]Pkudoyiqo [Mass/Vol]0.4 mg/dLNormal0.0-1.1FHolzer Medical Center – JacksonComment on above:Performed By: #### [id number] #### [facility] [address] [place] [address]Xmzgffa [Mass/Vol]10.0 mg/dLNormal8.9-11.1FHolzer Medical Center – JacksonComment on above:Performed By: #### [id number] #### [facility] [address] [place] [address]Eloavmdm [Moles/Vol]100 mmol/GRje933-556NdnsauLakehealth Beachwood Medical CenterComment on above:Performed By: #### [id number] #### [facility] [address] [place] [address] 82[address]NW9 [Moles/Vol]25 mmol/NCqmrzy75-19BhyxhoLakehealth Beachwood Medical Center Comment on above:Performed By: #### [id number] #### [facility] [address], [place] [address]Qeextubevr [Mass/Vol]0.7 mg/dLNormal0.5-1.3FHolzer Medical Center – JacksonComment on above:Performed By: #### [id number] #### [facility] [address], [place] [address]Wortdshn (S) [Mass/Vol]3.1 g/dLNormal1.4-4.0[facility] CenterComment on above:Performed By: #### [id number] #### [facility] [address], [place] [address]Vvrxdwe [Mass/Vol]82 mg/tERpgmrq99-154EoswrjLakehealth Beachwood Medical CenterComment on above:Performed By: #### [id number] #### [facility] [address], [place] [address]Tdutshnwv [Moles/Vol]3.8 mmol/LNormal3.5-5.3FHolzer Medical Center – JacksonComment on above:Performed By: #### [id number] #### [facility] [address], [place] [address]Hotaypi [Mass/Vol]8.1 g/dLHigh6.0-7.8[facility] Medical CenterComment on above:Performed By: #### [id number] #### [facility] [address], [place] [address]Bltnpp [Moles/Vol]134 mmol/ZSdl501-749RdhdncLakehealth Beachwood Medical CenterComment on above:Performed By: #### [id number] #### [facility] [address], [place] [address]Ytgi nitrogen [Mass/Vol]7 mg/dLNormal5-21[facility] Medical CenterComment on above:Performed By: #### [id number] #### [facility] [address], [place] [address]Vtpm nitrogen/Creatinine [Mass ratio]10 No UexowGynyqe38-22 [facility] CenterComment on above:Performed By: #### [id number] #### [facility] [address] [place], [place] [address]wFQXxi 15-05-3154tJWV074 mL/min/1.73 x5Rgziir>=59Fishamadou [facility] Hospital CenterComment on above:Performed By: #### [id number] #### [facility] [address] [facility] [place], [place] [address]Nefmuv Medicine Office/Clinic Noteon 15-97-3387Xydatu Medicine Office/Clinic NoteFami Medicine Office/Clinic Note HPI [...] RESENDEZ FAAFP, Penelope Tony, FAM, PED [address], [place] [address]- Additional Instructions: Patient Education Bradycardia, [...] exam Historical Abdominal pain (more content not included)...[facility] Comment on above:Result Comment: Electronically Signed By: Inez Banegas\\.br\\Date and Time Signed: 07/08/24 08:54 EDTAmbulatory Visit Summaryon 94-81-7479Uucdxnnrpr Visit SummaryAmbulatory Visit Summary SANNA RENDON :1985 [...] mg Tab) fluticasone nasal (Flonase 0.05 mg/inh Wing) levothyroxine (levothyroxine 25 mcg (0.025 mg) Tab) [...] CASAS DO, FAAFP Where: [facility] [address] [place] [address]- You Need to Schedule the Following Appointments Follow Up with Penelope CASAS DO, FAAFP, FAM, PED When: Where: [address] [place] [address]- Medications What How Much When Why Instructions [...] Unchanged fluticasone nasal (Flonase 0.05 mg/ inh Wing) 2 Sprays Nasal Inhalation Every day each [...] you for choosing us for your care. [facility] HospitalBhG Quanton 13-40-7368ZFQ.beta subunit Qn1 m[IU]/mLNormal1-3[facility] CenterComment on above:Result Comment: 'F NON < 1 - 3' ' 0.2 - 1 WEEK = 5 TO 50' ' 1 - 2 WEEKS = 50 - 500' ' 2 - 3 WEEKS = 100 - 5000' ' 3 - 4 WEEKS = 500 - 05187' ' 4 - 5 WEEKS = 1000 - 11292' ' 5 - 6 WEEKS = 75474 - 847624' ' 6 - 8 WEEKS = 46926 - 603111' ' 8 - 12 WEEKS = 06723 - 020741'Performed By: #### [id number] #### [facility] [address], [place] [address]KQRUV 2 Mutationson 17-78-2683UHNVD InterpretationSee Note [facility] HospitalComment on above:Result Comment: Indication for testing: Determine genetic contribution to hyperhomocysteinemia. 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 The [employer] Practice Guidelines indicate [...] a contributing factor to hyperhomocysteinemia. Variants Tested: c.665C>T(p.Dtk250Yps) and c.1286A>C(p.Jhq669Ssz). (legacy names C677T and V5754Q, respectively). Clinical Sensitivity: Undefined; hyperhomocysteinemia is caused [...] developed and its performance characteristics determined by [facility]. It has not been cleared or approved by the [place] Food and Drug Administration. This test was performed in a CLIA certified laboratory and is intended for clinical purposes. Counseling and informed consent are recommended for genetic testing. Consent forms are available online. Performed By: [facility] [address] [place] [address] Ammonia Box Tender: Yayo Moncada MD, PhD CLIA Number: [id number] Mutation: [id number]. San Rafael HospitalMTHFR Mutation: Z407OTqwobfhmVexmxkXojcxMt. [facility] Hospital MTHFR PCR SpecimenWhole BloodNormNational Jewish HealthAnti-nuclear Ab (NASEEM) Reflexon 22-15-4409Nhmx-Nuclear Ab (NASEEM), IgG by ELISANot detectedNormal None DetLongs Peak HospitalComment on above:Result Comment: If suspicion of connective tissue disease is strong and NASEEM EIA is negative, consider testing for NASEEM by IFA ([id number]). No antibodies to Anti-Nuclear Antibodies (NASEEM) detected. The Extractable Nuclear Antigen Antibodies (STORM CHASER, Christianson, SSA 52, SSA 60, Scleroderma, Brianna-1 [...] dsDNA, histones, SS-A (Ro), SS-B (La), Christianson, Christianson/STORM CHASER, Scl-70, Brianna-1, centromeric proteins, other antigens extracted from the HEp-2 cell nucleus. NASEEM ALEX assays have been reported to have lower sensitivities than NASEEM IFA for systemic autoimmune rheumatic diseases (SARD). Negative results do not necessarily rule out SARD. Performed By: [facility] [address] [place] [address] Ammonia Box Tender: Yayo Moncada MD, PhD CLIA Number: [id number] (Histidyl-tRNA Synthetase) Ab, IgGon 87-30-0285Ni-1 (Histidyl-tRNA Synthetase) Ab, IgG0 AU/mLNormal0-40[facility] Comment on above:Result Comment: INTERPRETIVE INFORMATION: Brianna-1 Antibody, IgG 29 AU/mL or less.........Negative 30-40 AU/mL..............Equivocal 41 AU/mL or greater......Positive Presence of Brianna-1 (antihistidyl transfer RNA [t-RNA] synthetase) antibody is associated with polymyositis and may also be seen in patients with dermatomyositis. Brianna-1 antibody is associated with pulmonary involvement (interstitial lung disease), Raynaud phenomenon, arthritis, and pbx mechanic's hands (implicated in antisynthetase syndrome). Performed By: [facility] [address] [place], [place] [id number] Ammonia Box Tender: Yayo Moncada MD, PhD CLIA Number: [id number] and SSB Abs, IgGon 87-88-2039UHY 52 (Ro) (KELLEN) Ab, IgG1 AU/mLNormal0-40[facility] HospitalComment on above:Result Comment: INTERPRETIVE INFORMATION: SSA-52 [...] interstitial lung disease.SSB (La) (KELLEN) Ab, IgG0 AU/mLNormal0-40[facility] Comment on above:Result Comment: INTERPRETIVE INFORMATION: [...] (PSS) also have this antibody. Performed By: [facility] [address] [id number] Ammonia Box Tender: Yayo Moncada MD, PhD CLIA Number: [id number] Antibodies, IgG/IgMon 42-28-2516Dumytqmuelo Ab IgG95 GPLCritically high<=14[facility] HospitalComment on above: Result Comment: INTERPRETIVE INFORMATION: [...] other criteria phospholipid antibody tests. Performed by [facility], [address] [place] [address] www.[facility], Zhang Bledsoe MD, Lab. Director [place] Number: [id number] Ab IgM<10Normal<=12[facility] HospitalComment on above:Result Comment: INTERPRETIVE INFORMATION: Anti- [...] other criteria phospholipid antibody tests. Performed by [facility], [address] [place] [address] www.[facility], Zhang Bledsoe MD, Lab. Director CLIA Number: [id number] (Smooth Muscle) Antibody, IgAon 94-63-9801F-Actin Ab, IgA1.8 UnitsNormal0.0-24.9[facility] HospitalComment on above: Result Comment: INTERPRETIVE INFORMATION: F-Actin (Smooth Muscle)Antibody, IgA 20.0 Units or less.....Negative 20.1 - 24.9 Units......Equivocal 25.0 Units or greater..Positive The presence of IgA antibodies against F-Actin in patients having positive serologic markers for celiac disease, such as antiendomysial, anti-transglutaminase, and/or anti-gliadin peptide IgA, indicates the presence of intestinal villus atrophy. Positive results should be confirmed with biopsy. Performed By: [facility] [address] [place] [address] Ammonia Box Tender: Yayo Moncada MD, PhD CLIA Number: [id number] Ab, IgG by ELISAon 13-36-6529dhMFT Ab, IgG by ALEX 4 IUNormal0-24[facility] HospitalComment on above:Result Comment: INTERPRETIVE INFORMATION: Double-Stranded DNA (dsDNA) Ab IgG ALEX 24 IU or less........Negative 25-30 IU.............Borderline Positive 30-60 IU.............Low Positive 60-200 IU............Positive 201 IU or greater....Strong Positive Positivity for anti-double stranded DNA (anti-dsDNA) IgG antibody is a diagnostic criterion of systemic lupus erythematosus (SLE). Specimens are initially screened by enzyme-linked immunosorbent assay (ALEX). If ordered as reflex (8521001), positive ALEX results (>24 IU) will be [...] recommendations for testing may be found at https://BadSeed/content/dhahnqfo-inxhj-bgtaqqaqjzrou. Performed by [facility], [address] [place] [address],[place] [address] www.[facility], Zhang Bledsoe MD, Lab. Director CLIA Number: [id number] Proteinon 25-86-2089KJY [Mass/Vol]mg/LNormal 0.0-5.0[facility] HospitalComment on above:Performed By: #### CRP #### [facility] [address] [place] [address] Imevhsavbeipg Rateon 84-15-7596Yphncwyyspqzo Rate18 mmNormal0-20 [facility] HospitalComment on above:Result Comment: ESR Units mm/Hr Performed By: #### ESR #### [facility] [address] [place] [address] Lqdots Medicine Office/Clinic Noteon 69-23-0208Lrbtmp Medicine Office/Clinic NoteFahudson hospital Medicine Office/Clinic Note Chief Complaint C/O: [...] # 90 tab(s), Refills(s) 4, Pharmacy: [facility] 1985, 168, cm, 06/30/24 8:36:00 EST, Height/Length Dosing, 97.2, kg, 06/30/24 8:36:00 EST, Weight Dosing Total time spent preparing the chart, conducting of the encounter with the patient and family and time spent documenting, reviewing, and ordering tests was 25 minutes. Follow-up With When Contact Information Penelope CASAS DO, FAAFP, CHRIS, PED In 2 months [address], [place] [address]- (419 (more content not included)...[facility] Comment on above:Result Comment: Electronically Signed By: Penelope CASAS DO, FAAFP\\.br\\Date and Time Signed: 06/30/24 09:24 ESTRECURRENT VAGINITIS (HTRX)on 46-50-1088HWZSWKARO DFSRMMD3BSJA HealthcareATOPOBIUM VAGINAENot detectedNOMS HealthcareBVAB 2,3 (BACTERIAL VAGINOSIS ASSOCIATED BACTERIA 2, 3); MOBILUNCUS YVK2BERU HealthcareBVAB 2,3 (BACTERIAL VAGINOSIS ASSOCIATED BACTERIA 2, 3); MOBILUNCUS SPPNot detectedNOMS HealthcareCANDIDA ALBICANS, PARAPSILOSIS, [id number] HealthcareCANDIDA ALBICANS, PARAPSILOSIS, TROPICALISNot detected NOMS HealthcareCANDIDA [id number] HealthcareCANDIDA GLABRATANot detectedNOMS HealthcareCANDIDA XDQFDZ5MBSR HealthcareCANDIDA KRUSEINot detectedNOMS HealthcareCHLAMYDIA PDVKOGPSTIR6VKSD HealthcareCHLAMYDIA TRACHOMATISNot detected NOMS HealthcareGARDNERELLA LFMTGAEQI3CIRK HealthcareGARDNERELLA VAGINALISNot detectedNOMS HealthcareMEGASPHAERA (TYPES 1, 2)0NOMS HealthcareMEGASPHAERA (TYPES 1, 2)Not detectedNOMS HealthcareMYCOPLASMA NLLWWLLGRL5DYIW Healthcare MYCOPLASMA GENITALIUMNot detectedNOMS HealthcareNEISSERIA MLEQGPEQZIX5TDMX HealthcareNEISSERIA GONORRHOEAENot detectedNOMS HealthcareTRICHOMONAS VAGINALIS0 NOMS HealthcareTRICHOMONAS VAGINALISNot detectedNOMS HealthcareNOMS Healthcare Urinalysis macro (dipstick) panel (U)on 18-83-6089Rrvcdfkhk, UANegativeNegative - 4(70) +++ mg/dLNOMS HealthcareBlood, UANegativeNegative [...] - 12 mg/dLNOMS HealthcareNOMS HealthcareAmbulatory Visit Summaryon 77-47-8855Zbvzdbwwls Visit SummaryAmbulatory Visit Summary SANNA RENDON :1985 [...] (Vitamin D) fluticasone nasal (Flonase 0.05 mg/inh Wing) levothyroxine (levothyroxine 25 mcg (0.025 mg) Tab) [...] CASAS DO, FAAFP Where: [facility] [address] [place] [address] [place] [address]- Medications What How Much When Why Instructions New azithromycin (Zithromax 250 mg Tab) 1 Packets By Mouth As Directed Sinusitis Duration: 5 Days Refills: 1 as directed on package labeling Pickup at [facility] 1985 New fluconazole (Diflucan 150 mg Tab) 1 Tablets By Mouth Every 7 days Yeast infection Refills: 1 Pickup at [facility] 1985 Unchanged enoxaparin (Lovenox 40 mg/ 0.4 mL Injection) 40 Milligram Subcutaneous Every 24 hours Contact prescribing physician if questions or concerns Unchanged ergocalciferol (Vitamin D) 2,000 International unit By Mouth Every week Contact prescribing physician if questions or concerns Unchanged fluticasone nasal (Flonase 0.05 mg/ inh Wing) 2 Sprays Nasal Inhalation Every day each [...] if questions or concerns Pharmacy Information [facility] 1985: [address] [place], [place] [id number] [phone] Allergies Milk Products (Illness) ciprofloxacin (Numbness and [...] you for choosing us for your care. [facility] Medicine Office/Clinic Noteon [id number] Medicine Office/Clinic NoteMarth[facility]/Clinic Note Chief Complaint Sinus [...] # 6 tab(s), Refills(s) 1, Pharmacy: [facility] 1985, 168, cm, 06/09/24 14:03:00 EST, Height/Length Dosing, 98.4, kg, 06/19/24 16:19:00 EST, Weight Dosing Yeast infection (B37.9: Candidiasis, unspecified) Ordered: fluconazole, 150 mg = 1 tab(s), Oral, q7day, # 4 tab(s), Refills(s) 1, Pharmacy: [facility] 1985, 168, cm, 06/09/24 [...] Oral, q7day, 1 refills Flonase 0.05 mg/inh Wing, 2 spray(s), Nasal, Daily, 11 refills levothyroxine [...] Given Patient Refuses influe (more content not included)...NormalLakehealth Beachwood Medical CenterComment on above:Result Comment: Electronically Signed By: MANDI BRYANT\\.br\\Date and Time Signed: 06/19/24 16:37 ESTCBC w/ Auto Diffon 06-12-2024 Basophils/100 WBC (Bld)0.3 %Normal0.0-2.0L[facility] Beachwood Medical CenterComment on above:Performed By: #### [id number] #### [facility] [address], [place] [address]Lfgvgzrra/Leukocytes Auto (Bld) [Pure # fraction]0.0 E9/LNormal 0.0-0.2FHolzer Medical Center – JacksonComment on above:Performed By: #### [id number] #### [facility] [address], [place] [address]Wfwyuagvwmc (Bld) [#/Vol]0.0 E9/LNormal0.0-0.5FHolzer Medical Center – JacksonComment on above:Performed By: #### [id number] #### [facility] [address], [place] [address]Upwbhqopcjx/100 WBC (Bld)0.3 %Normal0.0-8.0L[facility] Beachwood Medical CenterComment on above:Performed By: #### [id number] #### [facility] [address], [place] [address]Qcjtzkdxshb distribution width (RBC) [Ratio]14.0 %Normal 10.9-14.2FHolzer Medical Center – JacksonComment on above:Performed By: #### [id number] #### [facility] [address] [place] [address]Zsttbbivxp (Bld) [Volume fraction]40.9 %Qlzrsr35.0-46.0L[facility] Medical CenterComment on above:Performed By: #### [id number] #### [facility] [address] [place] [address] 12064Azkbsxbdsk (Bld) [Mass/Vol]13.9 g/fFMhywnr25.0-16.0[facility] CenterComment on above:Performed By: #### [id number] #### [facility] [address] [place] [address]Ajwdybjqugt (Bld) [#/Vol]2.8 E9/LNormal1.0-4.0[facility] Medical CenterComment on above:Performed By: #### [id number] #### [facility] [address] [place] [address]Ndfwajabfgb/100 WBC (Bld)24.6 %Ipvwes61.0-50.0[facility] Medical CenterComment on above:Performed By: #### [id number] #### [facility] [address] [place] [address]7978VNM (RBC) [Entitic mass]30.7 ctKeehdf31.0-34.0[facility] Medical CenterComment on above:Performed By: #### [id number] #### [facility] [address] [place] [address] 60689SGFR (RBC) [Mass/Vol]33.9 g/nZDlbstx62.4-36.0[facility] Medical CenterComment on above:Performed By: #### [id number] #### [facility] [address] [place] [address] 668[address]LTR (RBC) [Entitic vol]90.6 cXJqqncu25.0-100.0[facility] Medical CenterComment on above:Performed By: #### [id number] #### [facility] [address] [place] [address] 63813Xsquwjutv (Bld) [#/Vol]0.6 E9/LNormal0.2-1.0[facility] Medical CenterComment on above:Performed By: #### [id number] #### [facility] [address] [place] [address] 618[address]Chbzcyxlglx (Bld) [#/Vol]8.0 E9/LHigh2.0-7.5FHolzer Medical Center – JacksonComment on above:Performed By: #### [id number] #### [facility] [address] [place] [address] 915[address]Blbxnjwbkro/100 WBC (Bld)69.6 %Swuumx32.0-75.0[facility] Medical CenterComment on above:Performed By: #### [id number] #### [facility] [address] [place] [address]27[address]Oabjmerk999.0 E9/KNxnanc722.0-500.0[facility] Comment on above:Performed By: #### [id number] #### [facility] [address] [place] [address] 24[address]Jnlgtfmg mean volume (Bld) [Entitic vol]8.2 fLNormal6.4-10.8 [facility] CenterComment on above:Performed By: #### [id number] #### [facility] [address] [place] [address]37[address]GBK (Bld) [#/Vol]4.5 E12/LNormal4.3-5.9L[facility] Medical CenterComment on above:Performed By: #### [id number] #### [facility] [address], [place] [address]IFX corrected for nucl RBC Auto (Bld) [#/Vol]11.5 E9/LHigh 4.0-11.0L[facility] Medical CenterComment on above:Performed By: #### [id number] #### [facility] [address], [place] [address]RNHFIYQEYQQkvanox By: SYSTEM SYSTEM on 10-39-6302Rlbcypmuz/100 WBC (Bld)0.3 %Normal0.0 - 2.0 %Remisol HemeBasophils/Leukocytes Auto (Bld) [Pure # fraction]0.0 E9/LNormal0.0 - 0.2 E9/LRemisol HemeEosinophils (Bld) [#/Vol]0.0 E9/LNormal0.0 - 0.5 E9/LRemisol HemeEosinophils/100 WBC (Bld)0.3 %Normal0.0 - 8.0 %Remisol HemeErythrocyte distribution width (RBC) [Ratio]14.0 %Xberue21.9 - 14.2 %Remisol HemeHematocrit (Bld) [Volume fraction]40.9 %Pcizbr73.0 - 46.0 % Remisol HemeHemoglobin (Bld) [Mass/Vol]13.9 g/dZJkodxz47.0 - 16.0 gm/dLRemisol HemeLymphocytes (Bld) [#/Vol]2.8 E9/LNormal1.0 - 4.0 E9/LRemisol Heme Lymphocytes/100 WBC (Bld)24.6 %Nztcnw84.0 - 50.0 %Remisol HemeMCH (RBC) [Entitic mass]30.7 lhSqafed28.0 - 34.0 pgRemisol HemeMCHC (RBC) [Mass/Vol]33.9 g/dL Gghfop31.4 - 36.0 gm/dLRemisol HemeMCV (RBC) [Entitic vol]90.6 xQMpfids85.0 - 100.0 fLRemisol HemeMonocytes (Bld) [#/Vol]0.6 E9/LNormal0.2 - 1.0 E9/LRemisol HemeMonocytes/100 WBC (Bld)5.2 %Normal4.0 - 14.0 %Remisol HemeNeutrophils (Bld) [#/Vol]8.0 E9/LHigh2.0 - 7.5 E9/LRemisol HemeNeutrophils/100 WBC (Bld)69.6 % Ggtshb58.0 - 75.0 %Remisol XpbdFhmkcsub316.0 E9/HWdyajq486.0 - 500.0 E9/LRemisol HemePlatelet mean volume (Bld) [Entitic vol]8.2 fLNormal6.4 - 10.8 fLRemisol HemeRBC (Bld) [#/Vol]4.5 E12/LNormal4.3 - 5.9 E12/LRemisol HemeWBC corrected for nucl RBC Auto (Bld) [#/Vol]11.5 E9/LHigh4.0 - 11.0 E9/LRemisol HemeAmbulatory Visit Summaryon 52-42-9006Ztycfkjyex Visit SummaryAmbulatory Visit Summary SANNA RENDON :1985 Visit Date:06/09/2024 Ambulatory Visit Instructions Your Diagnosis Antiphospholipid antibody with hypercoagulable state H/O: CVA Gestational diabetes BMI 35.0-35.9,adult Morbid obesity Your Care Team Attending Physician - Penelope CASAS DO, FAAFP Primary Care Physician - Penelope CASAS DO, FAAFP This Is Your Medications List fluticasone nasal (Flonase 0.05 mg/inh Wing) Contact prescribing physician if questions or concerns [...] CASAS DO, FAAFP Where: [facility] [address], [facility] [place] [address]- Medications What How Much When Instructions New fluticasone nasal (Flonase 0.05 mg/ inh Wing) 2 Sprays Nasal Inhalation Every day Refills: 11 each nostril Pickup at [facility]/pharmacy #[id number] Unchanged enoxaparin (Lovenox 40 mg/ [...] physician if questions or concerns Pharmacy Information [facility]/pharmacy #[id number]: [address] [place], [place] [id number] [phone] Allergies Milk Products (Illness) ciprofloxacin (Numbness and [...] care. NormalFisher Western Maryland Hospital CenterBhCG Quanton 26-73-2743NTT.beta subunit Qn2 m[IU]/mLNormal1-3Fisher [facility] Maryland Hospital CenterComment on above:Result Comment: 'F NON < 1 - 3' ' 0.2 - 1 WEEK = 5 TO 50' ' 1 - 2 WEEKS = 50 - 500' ' 2 - 3 WEEKS = 100 - 5000' ' 3 - 4 WEEKS = 500 - 37608' ' 4 - 5 WEEKS = 1000 - 93124' ' 5 - 6 WEEKS = 67819 - 853350' ' 6 - 8 WEEKS = 87134 - 811704' ' 8 - 12 WEEKS = 30285 - 075538'Performed By: #### [id number] #### [facility] [address], [place] [address]EZNJMAARCNviuifv By: SYSTEM SYSTEM on 05-46-4988AHJ Qn1.97 m[IU]/LNormal0.34 - 5.60 mcIU/mLRemisol ChemFamily Medicine Office/Clinic Noteon 21-69-0493Lsvrcf Medicine Office/Clinic NoteFamily Medicine Office/Clinic Note Chief [...] from inside ear, not outside Moved from [place] Review of Systems PHQ Score Initial Depression [...] antibody with hypercoagulable state (D68.61: Antiphospholipid syndrome) [facility] Department of hematology/oncology following and treating with Lovenox, please see their consultation 05/28/2024. Treats with Lovenox 40 mg subcu every 24 hours 2. H/O: CVA (Z86.79: Personal history of other diseases of the circulatory system) Please see #1. 3. Gestational diabetes (O24.419: Gestational diabetes mellitus in , unspecified control) REFRIGERATION PERSON, [facility] following. Metformin XR 500 mg [...] PED In 6 months [address] [place] [address]- [phone] (more content not included)...[facility] HospitalComment on above:Result Comment: Electronically Signed By: Penelope CASAS DO, FAAFP\\.br\\Date and Time Signed: 06/09/24 14:24 ESTTSHon 08-57-8960WFE Qn1.97 m[IU]/LNormal0.34-5.60L[facility] Medical CenterComment on above:Performed By: #### [id number] #### [facility] [address] [facility] [place], [place] [address]RsTQ Quanton 61-50-3151ZDL.beta subunit Qn6 m[IU]/mLHigh1-3 [facility] CenterComment on above:Result Comment: 'F NON < 1 - 3' ' 0.2 - 1 WEEK = 5 TO 50' ' 1 - 2 WEEKS = 50 - 500' ' 2 - 3 WEEKS = 100 - 5000' ' 3 - 4 WEEKS = 500 - 29783' ' 4 - 5 WEEKS = 1000 - 82546' ' 5 - 6 WEEKS = 03709 - 790301' ' 6 - 8 WEEKS = 08229 - 141147' ' 8 - 12 WEEKS = 59237 - 252770'Performed By: #### [id number] #### [facility] [address] [facility] [place], [place] [address]([place])D3 [facility] 779661-uaqjrfosqpihjj D3 [Mass/Vol] 27.8 ng/mLLow31.0-80.0[facility]crest HospitalComment on above:Order Comment: Specimen Type: BLOOD SPECIMENOrdering Facility: [facility] Address:[address] [place], [place] [address]Ckwkiv Comment: Classification of 25 [place] Vitamin D status: Deficiency/Insufficiency: < or = 30 ng/ml. Sufficiency/Optimal Levels: 31-80 ng/mL Toxicity: > 100 ng/mL. Test performed by chemiluminescent immunoassay.Performed By: #### 1989-3 ####[facility] LABCLIA [id number] [facility] [id number] Auto Differential panel (Bld)on 00-96-7868Jrzllokjz (Bld) [#/Vol]0.03 10*3/uLNormal<0.11CMorrow [facility] Hospital on above:Order Comment: Specimen Type: BLOOD SPECIMENOrdering Facility: [facility] Address:[address] [place], [place] [address]Performed By: #### 41107-1 ####[facility] LABCLIA [id number] [place], [place] [address]Rtqqyigoz/100 WBC (Bld)0.4 % NormalRegency Hospital Cleveland East on above:Order Comment: Specimen Type: BLOOD SPECIMENOrdering Facility: [facility] Address:[address] [place], [place] [address]Performed By: #### 43846-7 ####[facility] LABCLIA [id number] [place] [address] Differential cell count method Nom (Bld)AutoNormalCFirelands Regional Medical Center South Campus Comment on above:Order Comment: Specimen Type: BLOOD SPECIMENOrdering Facility: [facility] Address:[address] [place] [address] Performed By: #### 49967-9 ####[facility] LABIA [id number] [place], [place] [address]Ulqeqsomhoc (Bld) [#/Vol]0.08 10*3/uLNormal<0.46[facility] on above:Order Comment: Specimen Type: BLOOD SPECIMENOrdering Facility: [facility] Address:[address] [place], [place] [address]Performed By: #### 13641-5 ####[facility] LABCLIA [id number] [place], [place] [address]Vhwydiokflk/100 WBC (Bld)0.9 %NormalRegency Hospital Cleveland East on above:Order Comment: Specimen Type: BLOOD SPECIMENOrdering Facility: [facility] Address:[address] [place], [place] [address]Performed By: #### 80873-6 ####[facility] LABIA [id number] [place], [place] [address]Ysaxwogxbio distribution width (RBC) [Ratio]13.8 %Dfozaj72.5-15.0[facility] on above: Order Comment: Specimen Type: BLOOD SPECIMENOrdering Facility: [facility] Address:[address] [place], [place] [address]Performed By: #### 11290- 8 ####[facility] LABIA [id number] [place], [place] [address]Hqysjwolbn (Bld) [Volume fraction]34.0 %Low36.0-46.0 [facility] on above:Order Comment: Specimen Type: BLOOD SPECIMENOrdering Facility: [facility] Address:[address] [place], [place] [address]Performed By: #### 56046-8 ####[facility] LABIA [id number] [place], [place] [address]Xgfawtuztn (Bld) [Mass/Vol]11.5 g/lXWrtkjs78.5-15.5CMorrow County Hospital on above: Order Comment: Specimen Type: BLOOD SPECIMENOrdering Facility: [facility] Address:[address] [place], [place] [address]Performed By: #### 38983- 8 ####[facility] LABIA [id number] [place], [place] [address]Suuzvozj granulocytes (Bld) [#/Vol]0.03 10*3/uLNormal <0.10[facility] on above:Order Comment: Specimen Type: BLOOD SPECIMENOrdering Facility: [facility] Address:[address] [place], [place] [address]Performed By: #### 33104-5 ####[facility] LABCLIA [id number] [place], [place] [address]Znhkcloj granulocytes/100 WBC (Bld)0.4 %NormalRegency Hospital Cleveland East on above: Order Comment: Specimen Type: BLOOD SPECIMENOrdering Facility: [facility] Address:[address] [place], [place] [address]Performed By: #### 32617- 8 ####[facility] LABCLIA [id number] [place], [place] [address]Sjideffhada (Bld) [#/Vol]2.86 10*3/uLNormal1.00-4.00 [facility] on above:Order Comment: Specimen Type: BLOOD SPECIMENOrdering Facility: [facility] Address:[address] [place], [place] [address]Performed By: #### 00138-3 ####[facility] LABCLIA [id number] [place], [place] [address]Nnirgohwnft/100 WBC (Bld)33.4 %NormalRegency Hospital Cleveland East on above:Order Comment: Specimen Type: BLOOD SPECIMENOrdering Facility: [facility] Address:[address] [place], [place] [address]Performed By: #### 68371-0 ####[facility] LABCLIA [id number] [place], [place] [address]KRN (RBC) [Entitic mass]30.8 fuIfretl04.0-34.0[facility] on above:Order Comment: Specimen Type: BLOOD SPECIMENOrdering Facility: [facility] Address:[address] [place], [place] [address]Performed By: #### 09654-7 ####[facility] LABCLIA [id number] [place], [place] [address]MXJC (RBC) [Mass/Vol]33.8 g/pJNmcfgs43.5-36.0[facility] on above: Order Comment: Specimen Type: BLOOD SPECIMENOrdering Facility: [facility] Address:[address] [place], [place] [address]Performed By: #### 54650- 8 ####[facility] LABCLIA [id number] [place], [place] [address]SZS (RBC) [Entitic vol]91.2 dSDfwuck65.0-100.0[facility] on above:Order Comment: Specimen Type: BLOOD SPECIMENOrdering Facility: [facility] Address:[address] [place], [place] [address]Performed By: #### 12615-8 ####[facility] LABIA [id number] [place], [place] [address]Vhhboyddu (Bld) [#/Vol]0.66 10*3/uLNormal<0.87[facility] on above:Order Comment: Specimen Type: BLOOD SPECIMENOrdering Facility: [facility] Address:[address] [place], [place] [address]Performed By: #### 01316- 8 ####[facility] LABIA [id number] [place], [place] [address]Xdukzmwky/100 WBC (Bld)7.7 %NormalRegency Hospital [facility] East on above:Order Comment: Specimen Type: BLOOD SPECIMENOrdering Facility: [facility] Address:[address] [place], [place] [address]Performed By: #### 93790-2 ####[facility] LABIA [id number] [place], [place] [address]Jywksnhwjbi (Bld) [#/Vol]4.90 10*3/uLNormal1.45-7.50[facility] on above:Order Comment: Specimen Type: BLOOD SPECIMENOrdering Facility: [facility] Address:[address] [place], [place] [address]Performed By: #### 27037-7 ####[facility] LABCLIA [id number] [place], [place] [address]Lunxspotxet/100 WBC (Bld)57.2 %NormalRegency Hospital Cleveland East on above:Order Comment: Specimen Type: BLOOD SPECIMENOrdering Facility: [facility] Address:[address] [place], [place] [address]Performed By: #### 79718-1 ####[facility] LABCLIA [id number] [place], [place] [address]Sabgdyjaq RBC (Bld) [#/Vol] 10*3/uLNormal<0.01[facility] on above:Order Comment: Specimen Type: BLOOD SPECIMENOrdering Facility: [facility] Address:[address] [place], [place] [address]Performed By: #### 36284-3 ####[facility] LABCLIA [id number] [place], [place] [address]Tmrncougu RBC/100 WBC (Bld) [Ratio]0.0 /100 WBCNormal [facility] on above:Order Comment: Specimen Type: BLOOD SPECIMENOrdering Facility: [facility] Address:[address] [place], [place] [address]Performed By: #### 78759-6 ####[facility] LABCLIA [id number] [place], [place] [address]Cmybgsll mean volume (Bld) [Entitic vol]9.6 fLNormal9.0-12.7CMorrow [facility] Hospital on above:Order Comment: Specimen Type: BLOOD SPECIMENOrdering Facility: [facility] Address:[address] [place] [address] Performed By: #### 20648-8 ####[facility] LABCLIA [id number] [place], [place] [address]Vraqshnxe (Bld) [#/Vol]345 10*3/hFAxjmik199-768DpyrevzzjRegency Hospital [facility] East on above:Order Comment: Specimen Type: BLOOD SPECIMENOrdering Facility: [facility] Address:[address] [place], [place] [address]Performed By: #### 67910-0 ####[facility] LABIA [id number] [place], [place] [address]CZA (Bld) [#/Vol]3.73 10*6/uLLow3.90-5.20[facility] on above:Order Comment: Specimen Type: BLOOD SPECIMENOrdering Facility: [facility] Address:[address] [place], [place] [address]Performed By: #### 60992-0 ####[facility] LABIA [id number] [place], [place] [address]BAA (Bld) [#/Vol]8.56 10*3/uL Normal3.70-11.00[facility] on above:Order Comment: Specimen Type: BLOOD SPECIMENOrdering Facility: [facility] Address:[address] [place], [place] [address]Performed By: #### 89745-5 ####[facility] LABIA [id number] [place], [place] [address]NDEZAFwc 16-97-1638RCKEDLIhujz (SP) Office (HEMASA) SANNA RENDON ([id number]) 1985 F Date Time Provider Department 05/28/24 1:00 PM ABHYANKAR, KRISTOFER HEMASA During your visit today, we recorded the following information about you: Temperature Pulse Respiration Blood pressure 97.6 degrees 72/minute 16/minute 123/83 Weight Height 98.5 kg 1.677 m Kristofer Calix MD 05/29/2024 9:13 AM Signed NAME: Sanna Rendon CLINIC NO.: [id number] DATE OF SERVICE: May 28, 2024 (Levon) [...] later in 2018. These were found in [place], [place]. I don't have access to these [...] rash shortly before presenting to [facility] in 2016 with headaches and was [...] soon. When she had a stroke in [place], she had symptoms up to a month [...] having trouble losing weight. (more content not included)...NormalCleveland Clinic Hillcrest HospitalCNPNon 05-28-2024 CNPNTelephone (NCCAP) SANNA RENDON ([id number]) 1985 F Date Time Provider Department 05/28/24 [...] 05/28/2024 Encounter Status:Closed by TAYLOR ESCUDERO on 05/28/24NormalClevelCount includes the [facility] Children's HospitalComprehensive metabolic 2000 panelon 09-41-5452Muroosk [Mass/Vol]4.4 g/dLNormal3.9-4.9ClevelCount includes the [facility] Children's HospitalComment on above:Order Comment: Specimen Type: BLOOD SPECIMENOrdering Facility: [facility] Address:[address] [place] [address] [place] [id number] By: #### 84220-3 ####[facility] LABCLIA [id number] [place] [address]QQS [Catalytic activity/Vol]59 U/UXxqubd74-032MlotcydztRegency Hospital [facility] East on above:Order Comment: Specimen Type: BLOOD SPECIMENOrdering Facility: [facility] Address:[address] [place], [place] [address]Performed By: #### 61331-2 ####[facility] LABCLIA [id number] [place], [place] [address]UMI [Catalytic activity/Vol]12 U/LNormal7-38[facility] on above:Order Comment: Specimen Type: BLOOD SPECIMENOrdering Facility: [facility] Address:[address] [place], [place] [address]Performed By: #### 72093- 8 ####[facility] LABCLIA [id number] [address] DUMONTHAVASU REGIONAL MEDICAL CENTERTEETEEMINERVA, [place] [address]Dqget gap [Moles/Vol]10 mmol/LNormal8-15[facility] on above:Order Comment: Specimen Type: BLOOD SPECIMENOrdering Facility: [facility] Address:[address] [place], [place] [address]Performed By: #### 33557-9 ####[facility] LABCLIA [id number] [place], [place] [address]RRJ [Catalytic activity/Vol]11 U/IDhi82-22NvzqrrmfwRegency Hospital [facility] East on above:Order Comment: Specimen Type: BLOOD SPECIMENOrdering Facility: [facility] Address:[address] [place], [place] [address]Performed By: #### 26350-7 ####[facility] LABCLIA [id number] [place] [address] Bilirubin [Mass/Vol]0.2 mg/dLNormal0.2-1.3CMorrow [facility] Hospital on above:Order Comment: Specimen Type: BLOOD SPECIMENOrdering Facility: [facility] Address:[address] [place], [place] [address]Performed By: #### 91088-4 ####[facility] LABCLIA [id number] [place], [place] [address]Isgnkus [Mass/Vol]9.7 mg/dLNormal8.5-10.2CMorrow County Hospital on above:Order Comment: Specimen Type: BLOOD SPECIMENOrdering Facility: [facility] Address:[address] [place], [place] [address]Performed By: #### 34710-2 ####[facility] LABCLIA [id number] [place], [place] [address]Nrsupxbe [Moles/Vol]99 mmol/EEuxdtt44-737UrzfmmpnmRegency Hospital [facility] on above:Order Comment: Specimen Type: BLOOD SPECIMENOrdering Facility: [facility] Address:[address] [place], [place] [address]Performed By: #### [id number]- 8 ####[facility] LABCLIA [id number] [place], [place] [address]NE3 [Moles/Vol]25 mmol/TEecmgb50-77GyxzoakgnRegency Hospital [facility] on above:Order Comment: Specimen Type: BLOOD SPECIMENOrdering Facility: [facility] Address:[address] [place], [place] [address]Performed By: #### [id number] ####[facility] LABCLIA [id number] [place], [place] [address]Qvjkdqvrnu [Mass/Vol]0.71 mg/dL Normal0.58-0.96[facility] on above:Order Comment: Specimen Type: BLOOD SPECIMENOrdering Facility: [facility] Address:[address] [place], [place] [address]Performed By: #### [id number] ####[facility] LABCLIA [id number] [place], [place] [address]Cdihokgmlo and Glomerular filtration rate.predicted panel (S/P/Bld)112 mL/min/1.73m???Normal>=60[facility] on above:Order Comment: Specimen Type: BLOOD SPECIMENOrdering Facility: [facility] Address:[address] [place], [place] [address]Knlnan Comment: Estimated Glomerular Filtration Rate (eGFR) is [...] not accurately reflect actual GFR.Performed By: #### 54272-3 ####[facility] LABCLIA [id number] [place], [place] [address]Crngrfh [Mass/Vol]79 mg/sEDdtrnm71-23VmiwlfjctRegency Hospital [facility] East on above:Order Comment: Specimen Type: BLOOD SPECIMENOrdering Facility: [facility] Address:[address] [place] [address]Bnvkla Comment: The [place] Diabetes Association (ADA) provides guidance for cutoff [...] Standards of Medical Care in Diabetes 2016, [place] Diabetes Association. Diabetes Care. 2016.39(Suppl 1).Performed By: #### 77369-4 ####[facility] LABCLIA [id number] [place], [place] [address]Zarpsfoey [Moles/Vol]4.0 mmol/LNormal3.7-5.1CMorrow [facility] on above:Order Comment: Specimen Type: BLOOD SPECIMENOrdering Facility: [facility] Address:[address] [place], [place] [address]Performed By: #### 63562-0 ####[facility] LABCLIA [id number] [place], [place] [address]Bbkspyy [Mass/Vol]7.1 g/dLNormal6.3-8.0[facility] on above:Order Comment: Specimen Type: BLOOD SPECIMENOrdering Facility: [facility] Address:[address] [place], [place] [address]Performed By: #### 21582- 8 ####[facility] LABCLIA [id number] [place], [place] [address]Dibets [Moles/Vol]134 mmol/NDxz192-108LoavykmqoRegency Hospital Cleveland East on above:Order Comment: Specimen Type: BLOOD SPECIMENOrdering Facility: [facility] Address:[address] [place], [place] [address]Performed By: #### 72150-6 ####[facility] LABCLIA [id number] [place], [place] [address]Jxlm nitrogen [Mass/Vol]8 mg/dL Normal7-21[facility] on above:Order Comment: Specimen Type: BLOOD SPECIMENOrdering Facility: [facility] Address:[address] [place], [place] [address]Performed By: #### 13131-3 ####[facility] LABCLIA [id number] [place] [address] Ferritin SerPl-mCncon 76-89-9925Qtkbdfmu [Mass/Vol]73.8 ng/uXBydzxj89.7-205.1 [facility] on above:Order Comment: Specimen Type: BLOOD SPECIMENOrdering Facility: [facility] Address:[address] [place], [place] [address]Performed By: #### 14922-9, 2276-4, 3016-3 ####[facility] LABCLIA [id number] [place] [address] [place] AMERICAFolate SerPl-mCncon 19-61-9245Pizbfz [Mass/Vol] ng/mLNormal>4.7CMorrow County Hospital on above:Order Comment: Specimen Type: BLOOD SPECIMENOrdering Facility: [facility] Address:[address] [place], [place] [address]Result Comment: A result of > 20 ng/mL is not necessarily indicative of a pathologic or treatable condition: it reflects a limitation of the test methodology. Assay reference range: 4.8 to 24.2 ng/mL. Suitable for detection of folate deficiency. Reference: Folate III (Folate III) [package insert V 1.0 Andorran]. [facility], [place], [place]: February 2015.Performed By: #### 2132-9, 2284-8 ####[facility] LABCLIA [id number] [place] [address] [place] OF AMERICAIron and Iron binding capacity panelon 05-28-2024 Iron [Mass/Vol]68 ug/uMQjbacb52-254UliditrpzRegency Hospital [facility] on above: Order Comment: Specimen Type: BLOOD SPECIMENOrdering Facility: [facility] Address:[address] [place], [place] [address]Performed By: #### 32541- 8, 2276-4, 3016-3 ####[facility] LABCLIA [id number] [place] [address] [place] AMERICAIron binding capacity [Mass/Vol]367 ug/gFYpopzw444-343AvxveaanlRegency Hospital Cleveland East on above: Order Comment: Specimen Type: BLOOD SPECIMENOrdering Facility: [facility] Address:[address] [place], [place] [address]Performed By: #### 56733- 8, 6-4, 3016-3 ####[facility] LABCLIA [id number] [place] [address] [place] OF AMERICAIron/TIBC [Molar ratio]18.5 %Rgykzk58.0-57.0[facility] on above:Order Comment: Specimen Type: BLOOD SPECIMENOrdering Facility: [facility] Address:[address] [place], [place] [address]Performed By: #### 19453- 8, 6-4, 3016-3 ####[facility] LABCLIA [id number] [place] [address] [place] OF [facility] CENTERTS SerPl-aCncon 03-12-5471KHX Qn2.940 m[IU]/LNormal0.270-4.200[facility] on above:Order Comment: Specimen Type: BLOOD SPECIMENOrdering Facility: [facility] Address:[address] [place], [place] [address]Result Comment: If the patient is , TSH reference range varies by gestational period: First Trimester (weeks 9-12): 0.180-2.990 mIU/L Second Trimester: 0.110-3.980 mIU/L Third Trimester: 0.480-4.710 mIU/L Danny Varela et al. A Practical Approach for the Verifications and Determination of Site- and Trimester-Specific Reference Intervals for Thyroid Function tests in . Thyroid, 2019:29:3:412-420.Saeed E, et al. 2017 Guidelines of the [place] Thyroid Association for the Diagnosis and Management of Thyroid Disease during and the . Thyroid, 2017:27:3:315-389. Performed By: #### 64609-1, 4, 3015-3 ####[facility] LABCLIA [id number] [place] [id number] BRYN MAWR STATES OF [facility] CENTERVit B12 SerPl-mCncon 46-09-3441Cmjkfyacw (Vitamin B12) [Mass/Vol]487 pg/xKMfmiuf237-0909XwsytlnqzMorrow County Hospital on above:Order Comment: Specimen Type: BLOOD SPECIMENOrdering Facility: [facility] Address:[address] [place], [place] [address]Performed By: #### 2132-9, 2284-8 ####[facility] LABCLIA [id number] [facility] [id number] [place] [address] [place] OF [facility]ELSON[facility] HE[facility] CENTERBhCG Quanton 38-12-4575IAZ.beta subunit Qn101 m[IU]/mLHigh1-3[facility] CenterComment on above:Result Comment: 'F NON < 1 - 3' ' 0.2 - 1 WEEK = 5 TO 50' ' 1 - 2 WEEKS = 50 - 500' ' 2 - 3 WEEKS = 100 - 5000' ' 3 - 4 WEEKS = 500 - 98173' ' 4 - 5 WEEKS = 1000 - 40364' ' 5 - 6 WEEKS = 80347 - 136207' ' 6 - 8 WEEKS = 24564 - 714215' ' 8 - 12 WEEKS = 41370 - 479009'Performed By: #### [id number] #### [facility] [address] [place], [place] [address]UZRZAS V LEIDEN MUTATIONon 74-77-1068OQQ FACTOR V LEIDEN MUTATIONComment.[facility] HealthcareComment on above:Result: c.1601G>A (p.Jio858Dao) - Not Detected This result is not associated with an increased risk for venous thromboembolism. See Additional Clinical Information and Comments. Additional Clinical Information: Venous thromboembolism is a multifactorial disease influenced by genetic, environmental, and circumstantial risk factors. The c.1601G>A (p. Oxh296Esf) variant in the F5 gene, commonly referred [...] c.*97G>A variant and Factor V Leiden (PMID: 73682595). Additional risk factors include but are not [...] health care providers to discuss results at [phone] (2668). Test Details: Variant Analyzed: c.1601G>A (p. Azl087Oqr), referred to as Factor V Leiden Methods/Limitations: [...] developed and its performance characteristics determined by [employer]. It has not been cleared or approved by the Food and Drug Administration. References: Jomar Tian, Loren BLANDON, Thiago R, Solo WW, Jose JH; ACMG Professional Practice and Guidelines Committee. Addendum: [place] [employer] consensus statement on factor V Leiden mutation testing. Nisha Med. 2020Jul 02. doi: 10.1038/o65455-420-48840-p. PMID: 37088418. Naina POWERS. Factor V Leiden Thrombophilia. 1998September 10 (Updated 2017May 03). In: Emeterio MP, Radha HH, Clayton RA, et al., editors. Cassie(R) (Internet). [place] ([place]): [facility], [place]; 1052-6376. Available from: https://www.ncbi.nlm.nih.gov/books/XMA7089/ Hudson Tian, Loren BLANDON, Trent X, Margarito B, Jo-Ann EB, Lena P, Rhiannon CS; ACMG Laboratory Inspector Rag Sorting Committee. Venous thromboembolism laboratory testing (factor V Leiden and factor II c.*97G>A), 2018 update: a technical standard of the [place] College of [employer] Genetics and Genomics (ACMG). Nisha Med. 2018 Mar;20(12):3801-3345. doi: 10.1038/c74980-924-4630-j. Epub 2017Feb 01. PMID: 60287079. [facility] REVIEWED BYComment.NOMS HealthcareComment on above:Technical Component performed at [facility] Professional Component performed by: CRMnext [facility] HospitalMobile Safe Case Rosa Isela Lee, Ph.D., [facility] Director, Molecular Genetics [address] [facility] Performed at: - [facility] [address], [place], [place] [address] Manager Research Development: [facility], located [facility], Phone: [phone] [facility] [id number] (HEMASA) SANNA RENDON ([id number]) 1985 F Date Time Provider Department 05/14/24 [...] for deficiency. 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, [...] Date Reviewed: 04/28/2024 Reviewed by: Katherine Negrete APRN.MASTER CONTROL TECHNICIAN - Fully Assessed Reason for Visit: [...] speech/language deficit [I69.328] 08/01/2022 Encounter Status:Closed by RAHCAEL JOHNSON on 05/14/24[facility] MISCELLANEOUS TESTon 28-07-6157IYPMYVVPFCNYW TESTCOMMENT.NOMS HealthcareComment on above:Test Ordered: [id number] , ID Ab Cytomegalovirus (CMV) Ab, IgG [...] 0.9 - 1.1 Positive >1.1 Performed at: [address] [id number] Manager Research Development: Dusty Miles PhD, Phone: [phone] Performed at: [address] [id number] Manager Research Development: China Ching MD, Phone: [phone] , Infectious Disease Antibody Profile CLINISYNCNOMS HealthcareNo Panel Informationon 53-57-0838AZCPVGYGFLLWN HealthcarePROTEIN C-FUNCTIONALon 46-06-0128KJWXZVA C-CMYLPZCFMP378 %73 - 180 % NOMS HealthcareComment on above:Performed at: [address] [id number] Manager Research Development: China Ching MD, Phone: [phone] PROTEIN S-ANTIGENon 79-72-7000UIHDWLN S, GJIP346 %61 - 136 %[facility] PROTEIN S, TOTAL96 %60 - 150 %NOMS HealthcareComment on above:This test was developed and its performance characteristics determined by [facility]. It has not been cleared or approved by the Food and Drug Administration. [facility] ANTITHROMBIN ACTIVITYon 09-21-4618Tcyynqvohrhvrp and review of laboratory resultsAbnormalMoberly Regional Medical Center ANTITHROMBIN WQIQFOSL571 %Fgrrymjf00 - 135 % NOMS HealthcareComment on above:An elevated antithrombin activity is of no known clinical significance. Direct Xa inhibitor anticoagulants such as rivaroxaban, apixaban and edoxaban will lead to spuriously elevated antithrombin activity levels possibly masking a deficiency. Performed at: [address] [id number] Manager Research Development: China Ching MD, Phone: [phone] ALL IMMUNOGLOBULIN Koffi 27-85-3982BOP IMMUNOGLOBULIN G, QN913 mg/dL586 - 1602 mg/dLNOKY HealthcareComment on above:Performed at: [address] [id number] Manager Research Development: Dusty Miles PhD, Phone: [phone] ALL IMMUNOGLOBULIN Mon 69-90-6368MOB IMMUNOGLOBULIN M, Q177 mg/dL26 - 217 mg/dL NOM HealthcareComment on above:Performed at: [address] [id number] Manager Research Development: Dusty Miles PhD, Phone: [phone] [facility] HOMOCYSTEINEon 10-96-4523XRJKONDV(E)INE5.8 umol/L0.0 - 14.5 umol/LNOMS HealthcareNo Panel Informationon 71-38-2554FRCBAZRSKSRRO HealthcareALL CBC WITH AUTO DIFFon 13-29-1456TINUWKXBS ABSOLUTE CBHB6ANQX HealthcareBasophils/100 WBC (Bld)0.2 %0.2 - 2.0 %NOMS HealthcareEosinophils/100 WBC (Bld)0.7 %Low0.9 - 7.0 % NOMS HealthcareErythrocyte distribution width (RBC) [Ratio]13 %11.0 - 15.0 %NOMS HealthcareHematocrit (Bld) [Volume fraction]35.6 %Low36.0 - 48.0 %[facility]ty HospitalHemoglobin (Bld) [Mass/Vol]12.3 g/dL12.0 - 16.0 g/dLRanken Jordan Pediatric Specialty Hospital IMMATURE GRANULOCYTES ABS AUTO0.04HighNOFreeman Cancer InstituteImmature granulocytes/100 WBC (Bld)0.4 %0.0 - 0.5 %[facility] HospitalInterpretation and review of laboratory resultsAbnormalNOKY HealthcareLYMPHOCYTES ABSOLUTE AUTO2.5NOMS [facility] Lymphocytes/100 WBC (Bld)26.1 %20.5 - 60.0 %[facility] CenterH (RBC) [Entitic mass]31 pg26.7 - 34.0 pgNOFreeman Health SystemHC (RBC) [Mass/Vol]34.6 g/dL29.9 - 35.2 g/dLRanken Jordan Pediatric Specialty HospitalMCV (RBC) [Entitic vol]89.7 fL81.0 - 99.0 fLRanken Jordan Pediatric Specialty Hospital MONOCYTES ABSOLUTE AUTO0.6NOMS HealthcareMonocytes/100 WBC (Bld)6 %1.7 - 12.0 % [facility]ty HospitalNEUTROPHILS ABSOLUTE AUTO6.3NOMS HealthcareNeutrophils/100 WBC (Bld)66.6 %43.0 - 75.0 %[facility] Specialty HospitalPlatelet mean volume (Bld) [Entitic vol] 9.9 fL9.5 - 13.5 fLNOMS [facility]uclid HospitalTBH EO #0.1NOMS [facility] HospitalTB MZZ622MCWH [facility] HospitalTB RBC3.97LowNOMS [facility]uclid HospitalTB WBC9.4NOMS [facility] HospitalCLINISYNCNSaint Francis Hospital & Health ServicesCC APTTon 71-85-6727pQJJ Coag (Bld) [Time]28.5 [facility] HospitalLon 05-10-2024L Specimen: [id number] Received: 05/12/24-120 Status: BALDOMERO Andrade Num: [id number] Spec Type: Surgical Subm Dr: Wilton Herrmann Tissues: A Placenta - Other than 3rd Trimester (14 WK PLACENTA) Procedures: HE/3, Gross/Micro L4 Age/ Patient Sex Location Account Attending Physician Sanna Rendon 38/F LABELL [id number] Wilton Herrmann SPEC NUM: [id number] RECD: 05/12/24-1209 STATUS: BALDOMERO ANDRADE NUM: [id number] AMARILYS: 05/10/24- SUBM DR: Wilton Herrmann ENTERED: 05/12/24-[address] [facility] [address]: Yao Pickett SPEC TYPE: Surgical DEPT: [facility] ENTERED BY: [id number] RECV BY: [id number] ORDERED: HE/3, Gross/Micro L4 ORDERED: HE/3, Gross/Micro [...] BS25-17 Received: 05/12/24 Status: BALDOMERO Andrade Num: [id number] Spec Type: Surgical Subm Dr: Wilton Herrmann Tissues: A Placenta - Other than 3rd Trimester (14 WK PLACENTA) Procedures: DEION/Ramone, Gross/Micro L4 Patient: Lizandro,Katie [id number] (Continued) Specimen: [id number] Received: 05/12/24 (Continued) Gross Description (Continued) Signed (signature on file) Vivi Hill MD 05/13/24 1605 Specimen: [id number] Received: 05/12/24 Status: JUSTINEBrittany Andrade Num: [id number] Spec Type: Surgical Subm Dr: Wilton Herrmann Tissues: A Placenta - Other than 3rd Trimester (14 WK PLACENTA) Procedures: /3, Gross/Micro L4 Patient: Sanna Rendon [id number] (Continued) Specimen: [id number] Received: 05/12/24 (Continued) Gross [...] and uniform. Cassettes: A1 Rolled membrane A2-A3 Bee Producer sections of placenta (3, ss, BS25-17 A) JosselynG . CPT Codes 06951 Specimen: [id number] Received: 05/12/24 Status: BALDOMERO Andrade Num: [id number] Spec Type: Surgical Subm Dr: Wilton Herrmann Tissues: A Placenta - Other than 3rd Trimester (14 WK PLACENTA) Procedures: DEION/Ramone, Gross/Micro L4 Patient: LizandroSanna [id number] (Continued) Signed (signature on file) Vivi Hill MD 05/13/[address] [place] [address] Physician GroupMHPT FIBRINOGENon 05-10-2024 AHNLOOCRJC805 mg/dL200 - 400 mg/dLNOFreeman Cancer InstituteNo Panel Informationon 72-77-7304BFIOTJEZIVIUK HealthcareSRMCOH PROTHROMBIN TIME INR W/O COUMon 57-57-4833GU Coag (PPP) [Time]10.3 sNHermann Area District Hospital INR0.97[facility] Comment on above:DESIRED INR: 2.0-3.0 CONDITIONS NOT LISTED BELOW 2.5-3.5 FOR PROSTHETIC HEART VALVE REPLACEMENT 2.5-3.5 RECURRENT THROMBOSIS US PELVISon 76-11-4693Sat[place] [address] Ultrasound Report Signed Patient: SANNA RENDON MR#: [id number] : 1985 Acct:[id number] Age/Sex: 38 / F ADM Date: Loc: [facility] 258-[address]: Wilton Herrmann D.O. Ordering Physician: Wilton Herrmann D.O. Date of Service: 05/10/24 Procedure(s): US pelvis Accession Number(s): [id number] cc: Wilton Herrmann D.O.; PENELOPE CASAS [place] [phone] Patient Name: SANNA RENDON MRN: [facility]H:[id number] date: 1985 Sex: F Assigned Patient Location: [facility] Current Patient Location: [facility] Accession/Order Number: [id number] Exam Date: 05/10/2024 14:36 Report Date: 05/10/2024 [...] M.D. Signed By: 05/10/241603 DD/ 01 TD/TT: On Call:ELVERadiology, Radiologist, - 05/10/2024 [place] [address] Ultrasound Report Signed Patient: SANNA RENDON MR#: [id number] : 1985 Acct:[id number] Age/Sex: 38 / F ADM Date: Loc: [facility] 258-[address]: Wilton Herrmann D.O. Ordering Physician: Wilton Herrmann D.O. Date of Service: 05/10/24 Procedure(s): US pelvis Accession Number(s): [id number] cc: Wilton Herrmann D.O.; PENELOPE CASAS [place] [address] Patient Name: SANNA RENDON MRN: TBH:[id number] date: 1985 Sex: F Assigned Patient Location: [facility] Current Patient Location: [facility] Accession/Order Number: [id number] Exam Date: 05/10/2024 14:36 Report Date: 05/10/2024 [...] M.D. Signed By: 05/10/241603 DD/ 01 TD/TT: On Call: SHILOH HealthcareRadiology Study observation (narrative)SHILOH HealthcareUS PELVIS Ordered By: Radiologist Radiology on 57-35-1907VDJH Healthcare Work Phone: US for pregnancyon [phone] [phone] Ultrasound Report Signed Patient: SANNA RENDON MR#: [id number] : 1985 Acct:[id number] Age/Sex: 38 / F ADM Date: Loc: [facility] 258-[address]: Wilton Herrmann D.O. Ordering Physician: Wilton Herrmann D.O. Date of Service: 05/10/24 Procedure(s): US OB limited Accession Number(s): [id number] cc: Wilton Herrmann D.O.; PENELOPE CASAS [address] [address] Patient Name: SANNA RENDON MRN: [id number]:[id number] date: 1985 Sex: F Assigned Patient Location: [facility] Current Patient Location: [place] Accession/Order Number: [id number] Exam Date: 05/10/2024 08:30 Report Date: 05/10/2024 [...] M.D. Signed By: 05/10/24928 DD/ 5 TD/TT: On Call:ELVERadiologPacheco morales, - 05/10/2024 [place] [address] Ultrasound Report Signed Patient: SANNA RENDON MR#: [id number] : 1985 Acct:[id number] Age/Sex: 38 / F ADM Date: Loc: [facility] 258-[address]: Wilton Herrmann D.O. Ordering Physician: Wilton Herrmann D.O. Date of Service: 05/10/24 Procedure(s): US OB limited Accession Number(s): [id number] cc: Wilton Herrmann D.O.; PENELOPE CASAS [place] [address] Patient Name: SANNA RENDON MRN: [facility]:[id number] date: 1985 Sex: F Assigned Patient Location: [facility] Current Patient Location: [place] Accession/Order Number: [id number] Exam Date: 05/10/2024 08:30 Report Date: 05/10/2024 [...] M.D. Signed By: 05/10/24928 DD/ 5 TD/TT: On Call: SHILOH HealthcareRadiology Study observation (narrative)NOMS HealthcareUS for pregnancyOrdered By: Radiologist Radiology on 75-54-2723ZIZG Healthcare Work Phone: us OB TRANSVAGINALon 86-22-5004LB OB TRANSVAGINALTITLE OF EXAM: OB Ultrasound: REASON [...] period was 01/29/2024.Urinalysis macro (dipstick) panel (U)on 68-42-4681Odvlahlao, UANegativeNegative - 4(70) +++ mg/dLNOKY Healthcare Blood, UANegativeNegative - 50 Max/mcLNOKY HealthcareClarity, UAClearNOKY HealthcareColor, UAYellowNOKY HealthcareGlucose, UANegativeNegative - 2000(110) ++++ mg/dLNOKY HealthcareInterpretation and review of laboratory resultsNormal NOMS HealthcareKetones, UANegativeNegative - 160(16) ++++ mg/dLNOKY Healthcare Leukocytes, UANegativeNegative - 500+++ John/mcLNOKY HealthcareNitrite, UA NegativeNegative - PositiveNOMS HealthcarepH, UA65 - 9NOMS HealthcareProtein, UA NegativeNegative - 2000(20) ++++ mg/dLNOKY HealthcareSpec Grav, UA1.011 - 1.03 NOMS HealthcareUrobilinogen, UA0.20.2 - 12 mg/dLNOMS HealthcareNOMS Healthcare BOX TESTon 60-43-8226BZX TEST SENT OUTYNOMS DorijahukhYUV4UJTBPBWDB Healthcare LQB11906/13/23NOMS HealthcareUNITY BOX CLINISYNCNOKY HealthcareTBH DRUG SCREEN RAPID (URINE)on 60-33-0623HHZFUPRWSSK SCREEN URINENegativeNEGATIVENOMS HealthcareBARBITURATES SCREEN URINENegative NEGATIVENOMS HealthcareBENZODIAZEPINES [...] TRICYCLIC ANTIDEPRESSANT URINENegativeNEGATIVENOMS HealthcareCLINISYNCNOMS HealthcareUS OB TRANSVAGINALon 94-16-6857WgfD[place], [place] [address] Ultrasound Report Signed Patient: Sanna Rendon MR#: [id number] : 1985 Acct:[id number] Age/Sex: 38 / F ADM Date: 04/04/24 Loc: [facility] Attending Dr: Wilton Herrmann D.O. Ordering Physician: Wilton Herrmann D.O. Date of Service: 04/04/24 Procedure(s): US OB transvaginal Accession Number(s): [id number] cc: Wilton Herrmann D.O.; PENELOPE CASAS [place] [phone] Patient Name: SANNA RENDON MRN: TBH:[id number] date: 1985 Sex: F Assigned Patient [facility]: [facility] Current Patient Location: Accession/Order Number: [id number] Exam Date: 04/04/2024 09:43 Report Date: 04/05/2024 [...] Signed By: 04/05/24 0442 DD/ 0439 TD/TT: On Call:TBHRadiology, Radiologist, MD - 04/05/2024 [place] [address] Ultrasound Report Signed Patient: Sanna Rendon MR#: [id number] : 1985 Acct:[id number] Age/Sex: 38 / F ADM Date: 04/04/24 Loc: [facility] Attending Dr: Wilton Herrmann D.O. Ordering Physician: Wilton Herrmann D.O. Date of Service: 04/04/24 Procedure(s): US OB transvaginal Accession Number(s): [id number] cc: Wilton Herrmann D.O.; PENELOPE CASAS [place] [phone] Patient Name: SANNA RENDON MRN: TBH:[id number] date: 1985 Sex: F Assigned Patient Location: [facility] Current Patient Location: Accession/Order Number: [id number] Exam Date: 04/04/2024 09:43 Report Date: 04/05/2024 [...] M.D. Signed By: 04/05/242 DD/ 8 TD/TT: On Call: SHILOH HealthcareRadiology Study observation (narrative)[facility]ty HospitalUS OB TRANSVAGINALOrdered By: Radiologist Radiology on 91-64-4453EJRP [employer] Work Phone: HCG ( test) Ql (U)on 70-63-5174Sddojlcgdfunve and review of laboratory resultsAbnormalNOMS HealthcarePreg Test, UrPositive NegativeNOFreeman Cancer InstituteNOKY HealthcareUrinalysis macro (dipstick) panel (U)on 48-05-0864Ajuiocxrt, UANegativeNegative - 4(70) +++ mg/dLNOMS HealthcareBlood, UANegativeNegative - 50 Max/mcLNOMS HealthcareClarity, UAClearNOMS Healthcare Color, UAYellowNOMS HealthcareGlucose, UANegativeNegative - 2000(110) ++++ mg/dL NOMS HealthcareInterpretation and review of laboratory resultsNormalNOKY HealthcareKetones, UANegativeNegative - 160(16) ++++ mg/dLNOMS Healthcare Leukocytes, UANegativeNegative - 500+++ John/mcLNOMS HealthcareNitrite, UA NegativeNegative - PositiveNOMS HealthcarepH, UA5.55 - 9NOMS HealthcareProtein, UANegativeNegative - 2000(20) ++++ mg/dLNOMS HealthcareSpec Grav, UA1.021 - 1.03 NOMS HealthcareUrobilinogen, UA1.00.2 - 12 mg/dLNOMS HealthcareNOMS HealthcareC Urineon 58-71-2467Grvtxcuk identified Cx Nom (U)Microbiology PROCEDURE: Urine Culture [R1] SOURCE: U CleanCatch BODY SITE: COLLECTED DATE/TIME: 03/01/2024 10:30 EDT RECEIVED DATE/TIME: 03/01/2024 13:48 EDT START DATE/TIME: 03/01/2024 13:48 EDT FREE TEXT SOURCE: Wilton HERRMANN DO, DO, Corey R FINAL REPORTS Final Report [] Verified Date/Time: 03/03/2024 08:52 EST 2,000 cfu/ml Mixed skin contaminants Performing Locations R1: This test was performed at: [facility], [address] [place] [address], [facility] , , SmnrkaPwewlpProMedica Bay Park HospitalComment on above:Performed By: #### [id number] #### [facility] [address] [place] [address]MyZV Quanton 01-35-7206IRU.beta subunit Qn747 m[IU]/mLHigh1-3 [facility] CenterComment on above:Result Comment: 'F NON < 1 - 3' ' 0.2 - 1 WEEK = 5 TO 50' ' 1 - 2 WEEKS = 50 - 500' ' 2 - 3 WEEKS = 100 - 5000' ' 3 - 4 WEEKS = 500 - 71611' ' 4 - 5 WEEKS = 1000 - 72047' ' 5 - 6 WEEKS = 53929 - 877878' ' 6 - 8 WEEKS = 35528 - 293994' ' 8 - 12 WEEKS = 10050 - 502169'Performed By: #### [id number] #### [facility] [address], [place] [address]SXMBPITLYMrnrcwc By: SYSTEM SYSTEM on 90-41-1420UWI.beta subunit Qn747 m[IU]/mLHigh1 - 3 mIU/mLRemisol ChemComment on above:Result Comment: 'F NON < 1 - 3' ' 0.2 - 1 WEEK = 5 TO 50' ' 1 - 2 WEEKS = 50 - 500' ' 2 - 3 WEEKS = 100 - 5000' ' 3 - 4 WEEKS = 500 - 31104' ' 4 - 5 WEEKS = 1000 - 93944' ' 5 - 6 WEEKS = 66696 - 507785' ' 6 - 8 WEEKS = 58037 - 789897' ' 8 - 12 WEEKS = [address]60[address] - 239211'BhCG Quanton 28-69-4847GAT.beta subunit Qn268 m[IU]/mLHigh1-3FHolzer Medical Center – JacksonComment on above:Result Comment: 'F NON < 1 - 3' ' 0.2 - 1 WEEK = 5 TO 50' ' 1 - 2 WEEKS = 50 - 500' ' 2 - 3 WEEKS = 100 - 5000' ' 3 - 4 WEEKS = 500 - 78322' ' 4 - 5 WEEKS = 1000 - 18279' ' 5 - 6 WEEKS = 55505 - 924388' ' 6 - 8 WEEKS = 58849 - 435896' ' 8 - 12 WEEKS = 93557 - 934176'Performed By: #### [id number] #### [facility] [address], [place] [address]KyKG Quanton 29-81-0143VSN.beta subunit Qn123 m[IU]/mLHigh1-3 [facility] CenterComment on above:Result Comment: 'F NON < 1 - 3' ' 0.2 - 1 WEEK = 5 TO 50' ' 1 - 2 WEEKS = 50 - 500' ' 2 - 3 WEEKS = 100 - 5000' ' 3 - 4 WEEKS = 500 - 88232' ' 4 - 5 WEEKS = 1000 - 15430' ' 5 - 6 WEEKS = 06461 - 840270' ' 6 - 8 WEEKS = 20210 - 010336' ' 8 - 12 WEEKS = 85872 - 410852'Performed By: #### [id number] #### [facility] [address], [place] [address]YSYIDFXTYNcquwoq By: SYSTEM SYSTEM on 15-38-0343ABZ.beta subunit Qn123 m[IU]/mLHigh1 - 3 mIU/mLRemisol ChemComment on above:Result Comment: 'F NON < 1 - 3' ' 0.2 - 1 WEEK = 5 TO 50' ' 1 - 2 WEEKS = 50 - 500' ' 2 - 3 WEEKS = 100 - 5000' ' 3 - 4 WEEKS = 500 - 68978' ' 4 - 5 WEEKS = 1000 - 43023' ' 5 - 6 WEEKS = 48464 - 616717' ' 6 - 8 WEEKS = 96469 - 628198' ' 8 - 12 WEEKS = 29708 - 872458'YovR4xzr 06-44-9903NkA7t (Bld) [Mass fraction]6.0 %High<=5.9L[facility] Medical CenterComment on above:Performed By: #### [id number] #### [facility] [address], [place] [address]CXY Screen 4th Generation wRfxon 35-55-1890KKW 1+2 Ab+HIV1 p24 Ag IA QlNon-ReactiveInvalid Interpretation CodeNon ReactiveLakehealth Beachwood Medical CenterComment on above:Result Comment: HIV-1/HIV-2 antibodies and HIV-1 p24 antigen were NOT detected. There is no laboratory evidence of HIV infection. HIV Negative Performed at: [facility] [address] [place], [place] [id number] PhD Jd MontanoPerformed By: #### [id number] #### [facility] [address], [place] [address]KkFO Quanton 93-30-6778WXL.beta subunit Qn52 m[IU]/mLHigh1-3 [facility] CenterComment on above:Result Comment: 'F NON < 1 - 3' ' 0.2 - 1 WEEK = 5 TO 50' ' 1 - 2 WEEKS = 50 - 500' ' 2 - 3 WEEKS = 100 - 5000' ' 3 - 4 WEEKS = 500 - 92666' ' 4 - 5 WEEKS = 1000 - 35083' ' 5 - 6 WEEKS = 09883 - 666561' ' 6 - 8 WEEKS = 73822 - 861286' ' 8 - 12 WEEKS = 32611 - 590739'Performed By: #### [id number] #### [facility] [address] [place], [place] [address]AAETHCXYXSjrsmoo By: SYSTEM SYSTEM on 72-88-1711Fqhxzcjeflx [Mass/Vol]225 mg/jPRkwg676 - 200 mg/dLRemisol ChemCholesterol in HDL [Mass/Vol] [...] 3 - 4 WEEKS = 500 - 20710' ' 4 - 5 WEEKS = 1000 - 80438' ' 5 - 6 WEEKS = 49642 - 804837' ' 6 - 8 WEEKS = 27658 - 620614' ' 8 - 12 WEEKS = 34997 - 645837'Triglyceride [Mass/Vol]212 mg/dLHigh <=149mg/dLRemisol ChemTSH Qn5.68 m[IU]/LHigh0.34 - 5.60 mcIU/mLRemisol Chem CHEMISTRYOrdered By: Chelsey Price on 56-48-6769MsR7v (Bld) [Mass fraction]5.9 %Normal<=5.9%[facility] SydyOiocKDMwmX4irr 22-12-6645GbN0j (Bld) [Mass fraction]5.9 % Normal<=5.9[facility] Medical CenterComment on above:Performed By: #### [id number] #### [facility] [address], [place] [address]Paioc Panelon 77-85-7273Hrzwyljllnv [Mass/Vol]225 mg/dLHigh 120-200L[facility] Medical CenterComment on above:Performed By: #### [id number] #### [facility] [address], [place] [address]Gvvzrtqteac in HDL [Mass/Vol]40 mg/dLInvalid Interpretation CodeLakehealth Beachwood Medical CenterComment on above:Result Comment: '>= 60 LOW RISK' '<= 40 HIGH RISK'Performed By: #### [id number] #### [facility] [address], [place] [address]Fcnbpwnlzpi in LDL [Mass/Vol]171 mg/dLHigh<=129L[facility] Medical CenterComment on above:Performed By: #### [id number] #### [facility] [address], [place] [address]Rbviutzhcdx in VLDL [Mass/Vol]42 mg/dLHigh7-40[facility] Medical CenterComment on above:Performed By: #### [id number] #### [facility] [address], [place] [address]Sgamqtfzxyvo [Mass/Vol]212 mg/dLHigh<=149L[facility] Medical CenterComment on above:Performed By: #### [id number] #### [facility] [address], [place] [address]CZNpb 50-98-2497RVW Qn5.68 m[IU]/LHigh0.34-5.60[facility] CenterComment on above:Performed By: #### [id number] #### [facility] [address] [place], [place] [address]Opqvgqjobs Visit Summaryon 58-29-6087Ufmhqbljzb Visit Summary Ambulatory Visit Summary SANNA RENDON [...] CASAS DO, FAAFP Where: [facility] [address], [facility] [place] [address]- You Need to Schedule the Following Appointments Follow Up with Penelope CASAS DO, FAAFP, FAM, PED When: In 3 months Where: [address], [facility] [place] [address]- You Need to Complete the Following HgbA1c, [...] virus infection Vaginal marlee (more content not included)...[facility] Family Medicine Office/Clinic Noteon 95-09-1753Xnobqw Medicine Office/Clinic NoteFahudson hospital Medicine Office/Clinic Note Chief Complaint Patient [...] 40 mg subcu, continue to follow-up with fountain attendant 5. Gestational diabetes (O24.419: Gestational diabetes mellitus in , unspecified control) Metformin 500 mg daily XR tabs 2/day per REFRIGERATION PERSON Ordered: HgbA1c HgbA1c HgbA1c HgbA1c 6. Well [...] 3 months [address] [facility], [facility] [place] [address]- Additional Instructions: Patient Education Acute Bronchitis, Adult Problem List/Past Medical History Ongoing Acute (more content not included)...[facility] HospitalComment on above:Result Comment: Electronically Signed By: Penelope CASAS DO, FAAFP\\.br\\Date and Time Signed: 02/05/24 14:44 EDTAmbulatory Visit [...] pneumonia Refills: 5 Pickup at [facility] 1985 New azithromycin (azithromycin 250 mg Tab 5-day Dose Pack (Z-Jonny)) 1 Packets By Mouth As Directed Community acquired pneumonia Duration: 5 Days as directed on package labeling Pickup at [facility] 1985 Unchanged enoxaparin (Lovenox 40 mg/ 0.4 [...] questions or concerns Pharmacy Information [facility]: [address] [facility] [facility] [place] [phone] Allergies Milk Products (Illness) ciprofloxacin (Numbness and [...] you for choosing us for your care. [facility] Medicine Office/Clinic Noteon 72-44-4149Zsqvye Medicine Office/Clinic NoteFahudson hospital Medicine Office/Clinic Note Chief Complaint SOB [...] Years White Female presenting to [facility] with body aches and productive cough [...] Inhalation, q6hr, 1 EA, Refill(s) 5, [facility], 168, cm, 02/01/2414:43:00 EDT, Height/Length Dosing, 101.1, kg, 02/02/24 14:43:00 EDT, Weight Dosing azithromycin, = 1 packet(s), Oral, As Directed, as directed on package labeling, X 5 day(s), # 6 tab(s), Refills(s) 0, Pharmacy: [facility] 1985, 168, cm, 02/02/24 [...] Bernstein MD, FAM, MED Only if needed [address] [place] [phone] Additional Instructions: Problem List/Past Medical History Ongoing [...] Vitamin D, 2000 International_Unit (more content not included)...[facility] HospitalComment on above:Result Comment: Electronically Signed By: Anni Bernstein MD\\.br\\Date and Time Signed: 02/01/2415:03 EDTMRI Brain w/o Contraston 75-06-0785QZX Brain w/o ContrastExam Date/Time: 12/06/2023 14:48 EDT [...] LINDY Technologist: [facility] CenterCortisolon 41-01-2886Pkmtrkta [Mass/Vol]12.5 microgram/dLInvalid Interpretation Code 6.2-19.4FHolzer Medical Center – JacksonComment on above:Result Comment: Please Note: The reference interval and flagging for this test is for an AM collection. If this is a PM collection please use: Cortisol PM: 2.3-11.9 Performed at: [employer] [id number] PhD Jd Garciaformed By: #### [id number] #### [facility] [address], [place] [address]J0 Freeon 71-29-3603Xylk T3 [Mass/Vol]2.5 pg/mLInvalid Interpretation Code2.0-4.4FHolzer Medical Center – JacksonComment on above:Result Comment: Performed at: [employer] [id number] PhD Jd Garciaformed By: #### [id number] #### [facility] [address], [place] [address]Vaohzjvee 49-88-0523Ctrqesh [Catalytic activity/Vol]38 U/L Anzerc24-349QycehbLakehealth Beachwood Medical CenterComment on above:Performed By: #### [id number] #### [facility] [address], [place] [address]PQMMNUGMAKmvfxsh By: SYSTEM SYSTEM on 09-49-4115Svqdpfk [Catalytic activity/Vol]38 U/VJgwsyh98 - 157 unit/LRemisol ChemCobalamin (Vitamin B12) [Mass/Vol]328 pg/jVAkocsh50 - 1500 pg/mLRemisol ChemCRP [Mass/Vol] 0.2 mg/dLNormal<=1.9mg/dLRemisol ChemFree T4 [Mass/Vol]0.58 ng/dLNormal0.58 - 1.64 ng/dLRemisol ChemTSH Qn4.97 m[IU]/LNormal0.34 - 5.60 mcIU/mLRemisol ChemCRP on 66-19-1605WVW [Mass/Vol]0.2 mg/dLNormal<=1.9[facility] Comment on above:Performed By: #### [id number] #### [facility] [address] [place] [address]Fvpe T4on 42-47-6353Mejt T4 [Mass/Vol]0.58 ng/dLNormal0.58-1.64 [facility] CenterComment on above:Performed By: #### [id number] #### [facility] [address], [place] [address]MPJODSLSLGJapxcdu By: Isha Zheng on 15-44-1771YYM (Bld) [Velocity]18 mm/hNormal0 - 34 mm/FT HemeAutoSSSed Rate Automatedon 40-73-1608FCK (Bld) [Velocity]18 mm/hNormal0-34[facility] Comment on above:Performed By: #### [id number] #### [facility] [address], [place] [address]ZPEgh 62-38-3760KJO Qn4.97 m[IU]/LNormal0.34-5.60[facility] CenterComment on above:Performed By: #### [id number] #### [facility] [address], [place] [address]Alp B12on 74-39-4816Srqglzuxn (Vitamin B12) [Mass/Vol]328 pg/mL Rrircq50-1475PvjzwlLakehealth Beachwood Medical CenterComment on above:Performed By: #### [id number] #### [facility] [address], [place] [address]Rqjank Medicine Office/Clinic Noteon 99-26-9167Nqtsri Medicine Office/Clinic NoteFahudson hospital Medicine Office/Clinic Note Chief Complaint Right [...] Iron deficiency) Mild, as reported by her fountain attendant, labs from 2022 appear normal 6. Pre-diabetes (R73.03: Prediabetes) Last A1c Continue metformin Nutrition: - Maintain optimal weight - Calorie restriction - Plant-based diet; high polyunsatur (more content not included)...[facility] HospitalComment on above:Result Comment: Electronically Signed By: Jayant YEBOAH, Monica Varela\\.br\\Date and Time Signed: 11/09/23 15:56 EDTPhysician Referralon 72-42-7514Mfyvlylxf Referral [id number] Bay Park HospitalAmbulatory Visit Summaryon 25-31-5032Ooqrzqhlts Visit Summary SANNA RENDON :1985 Visit Date:10/23/2023 [...] (Vitamin D) fluticasone nasal (Flonase 0.05 mg/inh Wing) metformin (MetFORMIN (Eqv-Glucophage XR) 500 mg oral [...] CASAS DO, FAAFP [facility] Office/Clinic Noteon 70-84-8106Twgaei Medicine Office/Clinic NoteChief Complaint pt here for [...] Mouth: mucous membranes pink, moist and intact. [place] posterior oropharynx, no palatal inflammation,uvula midline, no [...] 106.2, kg, 10/23/23 16:55:00 EDT, Weight Dosing [facility] External Ambulatory Referral 2. Nasal polyps (J33.9: Nasal polyp, unspecified) pt reported - moved before previous ENT could perform surgery - submitted new referral at this time Ordered: [facility] External Ambulatory Referral 3. Deviated septum (J34.2: Deviated nasal septum) pt reported - moved before previous ENT could perform surgery - see #2 Ordered: [facility] External Ambulatory Referral [...] Dosing 5. Obesity ( (more content not included)...[facility] Comment on above:Result Comment: Electronically Signed By: Shirlene YEBOAH, Lourdes Baltazar\\.br\\Date and Time Signed: 10/23/23 17:13 EDTPatient Educationon 42-62-7669Arqwixk EducationENT Deviated Septum The septum is the [...] specializes in ear, nose, and throat disorders (tenon machine operator, or ENT) for more tests and treatment. [...] Follow these instructions at home: ? Take xdwv-huf-gidgkeo and prescription medicines only as told by [...] specializes in ear, nose, and throat disorders (tenon machine operator, or ENT) for more tests and treatment. This information is not intended to replace advice given to you by your health care provider. Make sure you discuss any questions you have with your health care provider. Document Revised: 12/12/2021 Document Reviewed: 12/12/2021 [employer] Patient Education ? 2022 [employer]. Nasal Polyps Nasal polyps are growths that [...] [facility] CenterCT Abdomen/Pelvis w/o Contraston 76-75-7549JN Abdomen/Pelvis w/o Contrast Exam Date/Time: 09/28/2023 19:58 [...] Given? No Oral contrast amount in ml's: 0NormOhio State Harding HospitalB hCG Qualon 74-78-7986Dgos HCG ( test) QlNegativeProMedica Bay Park Hospital Comment on above:Performed By: #### [id number] #### [facility] [address], [place] [address]RAJdx 62-66-6090Cfmfe gap [Moles/Vol]13 mmol/LNormal6-16[facility] Medical CenterComment on above:Performed By: #### [id number] #### [facility] [address], [place] [address]Aluarmq [Mass/Vol]9.9 mg/dLNormal8.9-11.1FHolzer Medical Center – JacksonComment on above:Performed By: #### [id number] #### [facility] [address], [place] [address]Zxiwykgh [Moles/Vol]101 mmol/JJiyhyj268-205SbnktoLakehealth Beachwood Medical CenterComment on above:Performed By: #### [id number] #### [facility] [address], [place] [address]ZK7 [Moles/Vol]25 mmol/VVjojao04-26WpdcacLakehealth Beachwood Medical Center Comment on above:Performed By: #### [id number] #### [facility] [address], [place] [address]Kuyvlfyxjn [Mass/Vol]0.9 mg/dLNormal0.5-1.3FHolzer Medical Center – JacksonComment on above:Performed By: #### [id number] #### [facility] [address], [place] [address]Kellbme [Mass/Vol]94 mg/lVHfljkz96-557SfbkpkLakehealth Beachwood Medical CenterComment on above:Performed By: #### [id number] #### [facility] [address], [place] [address]Rmblloknj [Moles/Vol]3.6 mmol/LNormal3.5-5.3FHolzer Medical Center – JacksonComment on above:Performed By: #### [id number] #### [facility] [address], [place] [address]Yatqrz [Moles/Vol]135 mmol/HIadffm567-464ZbcwqfLakehealth Beachwood Medical CenterComment on above:Performed By: #### [id number] #### [facility] [address], [place] [address]Rhqi nitrogen [Mass/Vol]8 mg/dLNormal5-21L[facility] Medical CenterComment on above:Performed By: #### [id number] #### [facility] [address] [place] [address]Stkl nitrogen/Creatinine [Mass ratio]9 No NfoffIfb70-82QlnsylLakehealth Beachwood Medical CenterComment on above:Performed By: #### [id number] #### [facility] [address] [place] [address]UWZ w/ Auto Diffon 60-80-7570Ibmligsuy/100 WBC (Bld)0.7 %Normal 0.0-2.0[facility] Medical CenterComment on above:Performed By: #### [id number] #### [facility] [address] [place] [address]Jkdzrkqlv/Leukocytes Auto (Bld) [Pure # fraction]0.1 E9/LNormal 0.0-0.2FHolzer Medical Center – JacksonComment on above:Performed By: #### [id number] #### [facility] [address] [place] [address]Kpmoxfmmaqw (Bld) [#/Vol]0.0 E9/LNormal0.0-0.5FHolzer Medical Center – JacksonComment on above:Performed By: #### [id number] #### [facility] [address] [place] [address]Vrmsrobtmya/100 WBC (Bld)0.5 %Normal0.0-8.0[facility] Medical CenterComment on above:Performed By: #### [id number] #### [facility] [address] [place] [address]Ohwdtihhoxb distribution width (RBC) [Ratio]14.3 %High10.9-14.2 [facility] Medical CenterComment on above:Performed By: #### [id number] #### [facility] [address] [place] [address]Ccfgxuyoxw (Bld) [Volume fraction]39.5 %Ojkxvv13.0-46.0[facility] Medical CenterComment on above:Performed By: #### [id number] #### [facility] [address] [place] [address]Vyrldvnrap (Bld) [Mass/Vol]13.2 g/yTHvxoxl66.0-16.0[facility] CenterComment on above:Performed By: #### [id number] #### [facility] [address] [place] [address]Oadzjmrczii (Bld) [#/Vol]3.5 E9/LNormal1.0-4.0[facility] Medical CenterComment on above:Performed By: #### [id number] #### [facility] [address] [place] [address]Ksdthgrzzzi/100 WBC (Bld)35.6 %Jjugwl33.0-50.0[facility] Medical CenterComment on above:Performed By: #### [id number] #### [facility] [address] [place] [address]VPB (RBC) [Entitic mass]29.3 rhOiwvpp73.0-34.0[facility] Medical CenterComment on above:Performed By: #### [id number] #### [facility] [address] [place] [address] 079[address]CYGR (RBC) [Mass/Vol]33.5 g/kOJqtcaf22.4-36.0[facility] CenterComment on above:Performed By: #### [id number] #### [facility] [address] [place] [address] 19736NDE (RBC) [Entitic vol]87.4 mEWfnpdr92.0-100.0[facility] CenterComment on above:Performed By: #### [id number] #### [facility] [address] [place] [address] 080[address]Nizhafkjk (Bld) [#/Vol]0.7 E9/LNormal0.2-1.0[facility] CenterComment on above:Performed By: #### [id number] #### [facility] [address] [place] [address]Jrpqjcivzbj (Bld) [#/Vol]5.6 E9/LNormal2.0-7.5FHolzer Medical Center – JacksonComment on above:Performed By: #### [id number] #### [facility] [address] [place] [address]87[address]Sbwfjpdqsxa/100 WBC (Bld)56.4 %Vzzrvm85.0-75.0[facility] Medical CenterComment on above:Performed By: #### [id number] #### [facility] [address] [place] [address] 0450[address]Bmzfkxej mean volume (Bld) [Entitic vol]8.1 fLNormal6.4-10.8 [facility] CenterComment on above:Performed By: #### [id number] #### [facility] [address] [place] [address]Ifbtcgavl (Bld) [#/Vol]360.0 E9/SRokuyj727.0-500.0[facility] CenterComment on above:Performed By: #### [id number] #### [facility] [address] [place] [address] 317[address]NVX (Bld) [#/Vol]4.5 E12/LNormal4.3-5.9[facility] CenterComment on above:Performed By: #### [id number] #### [facility] [address] [place] [address]RQJ corrected for nucl RBC Auto (Bld) [#/Vol]9.9 E9/LNormal 4.0-11.0[facility] Medical CenterComment on above:Performed By: #### [id number] #### [facility] [address] [place] [address]LBRSZBQSBAmjzbao By: SYSTEM SYSTEM on 22-94-3458Lxsetmf [Mass/Vol]4.8 g/dLNormal3.3 - 5.0 gm/dLRemisol ChemAlbumin/Globulin [Mass ratio] 1.6 {ratio}Normal1.1 - 2.2Remisol ChemALP [Catalytic activity/Vol]66 [iU]/d Zfmilt40 - 98 Int._Unit/LRemisol ChemALT No additional P-5'-P [Catalytic activity/Vol]16 [iU]/dNormal6 - 46 Int._Unit/LRemisol ChemAnion gap [Moles/Vol] 13 mmol/LNormal6 - 16 mEq/LRemisol ChemAST [Catalytic activity/Vol]15 [iU]/d Normal5 - 43 Int._Unit/LRemisol ChemBilirubin [Mass/Vol]0.3 mg/dLNormal0.0 - 1.1 mg/dLRemisol ChemBilirubin.direct [Mass/Vol]0.0 mg/dLNormal0.0 - 0.4 mg/dL Remisol ChemBilirubin.indirect [Mass or moles/Vol]0.3 mg/dLNormal0.1 - 0.9 mg/dL Remisol ChemCalcium [Mass/Vol]9.9 mg/dLNormal8.9 - 11.1 mg/dLRemisol Chem Chloride [Moles/Vol]101 mmol/BTlwpqb250 - 111 mmol/LRemisol ChemCO2 [Moles/Vol] 25 mmol/SEliwjd92 - 31 mmol/LRemisol ChemCreatinine [Mass/Vol]0.9 mg/dLNormal0.5 - 1.3 mg/dLRemisol FkgywVID78 mL/min/1.73 v9Myysxk>=59mL/min/1.73 b8Gutyery ChemGlobulin (S) [Mass/Vol]3.0 g/dLNormal1.4 - 4.0 gm/dLRemisol ChemGlucose [Mass/Vol]94 mg/uTBelwjb26 - 199 mg/dLRemisol ChemLipase [Catalytic activity/Vol]26 U/ENqseau70 - 58 unit/LRemisol ChemPotassium [Moles/Vol]3.6 mmol/LNormal3.5 - 5.3 mmol/LRemisol ChemProtein [Mass/Vol]7.8 g/dLNormal6.0 - 7.8 gm/dLRemisol ChemSodium [Moles/Vol]135 mmol/KSdbvbi340 - 145 mmol/LRemisol ChemUrea nitrogen [Mass/Vol]8 mg/dLNormal5 - 21 mg/dLRemisol ChemUrea nitrogen/Creatinine [Mass ratio]9 mg/mgLow10 - 20Remisol ChemConsent for Treatmenton 20-95-6849Ihrmmff for Treatment [id number] HospitalDischarge Instructionson 75-58-5420Owvcdtpqm Instructions [id number] Children's Medical Center Clinical Summaryon 77-87-2383IA Clinical Summary [place] [id number] ED Clinical Summary Person Information Name: SANNA RENDON [facility] Age: 37 Years : 1985 Sex: Female Language: Andorran PCP: Penelope CASAS DO, FAAFP Marital Status: Phone: [phone] Visit Id: Visit Reason: Medical problem - [...] 21:22:15 09/28/2023 21:22:15 09/28/2023 21:22:15 ADDR[facility]: [facility] [id number] PHYS DOC NOTES: MEDICAL INFORMATION: Prescriptions Given: Medications to Continue with No Changes Other Medications enoxaparin (Lovenox 40 mg/0.4 mL Injection) 40 Milligram Subcutaneous every 24 hours. ergocalciferol (Vitamin D) 2,000 International unit By Mouth every week. fluticasone nasal (Flonase 0.05 mg/inh Wing) 2 Sprays Nasal Inhalation every day. each nostril. metformin (MetFORMIN (Eqv-Glucophage XR) 500 mg oral tablet, extended release) 2 Tablets By Mouth every day. PATIENT EDUCATION INFORMATION: Instructions: Abdominal Pain, Adult Follow up: With: Address: When: Penelope CASAS [address] [place] [address], [place] [address] Business (1) In 3 days DIAGNOSIS: 1:Abdominal painNoAultman Orrville Hospital CenterED Note-Physicianon 09-28-2023 ED Note-PhysicianPatient was [...] understanding agreement this plan is discharged stable condition.[facility] HospitalComment on above:Result Comment: Electronically Signed By: Sidney Daly DO\\.cedrick\\Date and Time Signed: 09/28/23 21:12 EDTED Note-PhysicianBasic Information Time Seen: Bijan Miramontes PA-C 09/28/2023 18:46 Chief Complaint Pt woke up around 7 am and started getting a pain on R side of belly button. States feels bloated and like her abdomen is coral.Was sent [facility] for [...] mL, IV, Once Home Flonase 0.05 mg/inh Wing, 2 spray(s), Nasal, Daily Lovenox 40 mg/0.4 [...] Lab Results No qual (more content not included)...[facility] HospitalComment on above:Result Comment: Electronically Signed By: Bijan Miramontes PA-C\\.br\\Date and Time Signed: 09/27/2417:50 EDT\\.br\\Electronically Co-Signed By: Benny Uribe DO\\.br\\Date and Time Co-Signed: 09/27/2418:44 EDTED Patient Education Noteon [id number] Patient Education NoteGastroenterology Abdominal Pain, Adult Pain [...] these instructions at home: Medicines ? Take ytof-dxa-acivuxi and prescription medicines only as told by [...] your condition for any changes. ? Take suvx-tgd-prwmzva and prescription medicines only as told by [...] Reviewed: 08/25/2019 Elsevier Patient Education ? 2022 YouScan.[facility] ED Patient Summaryon [id number] Patient Summary [address] [address] Patient Discharge Instructions Person Information Name: SANNA RENDON Age: 37 Years Arrival Date: 09/28/2023 18:21:25 Discharge Diagnosis: 1:Abdominal pain Primary Care Physician: Penelope CASAS DO, FAAFP Provider Information Primary Provider: Benny Uribe DO Advanced Business Development Analyst:Bijan Miramontes PA-C The exam and treatment you received in the Emergency Department were for an urgent problem and are not intended as complete care. It is important that you follow up with a doctor, nurse practitioner,or physician?s tmd teacher assistant for ongoing care. If your symptoms [...] Follow-up Instructions: With: Address: When: Penelope CASAS [address] [place] [address], [place] [address] Business (1) In 3 days In the event that this physician does not participate in your insurance network, please consult with your insurance company to find a nearby participating provider. Patient Education Materials: Abdominal Pain, Adult A MESSAGE TO ALL PATIENTS REGARDING OPIOIDS PRESCRIPTION OPIOIDS: WHAT YOU NEED TO KNOW Prescription opioids can be used to help relieve bjahcquy-nr-njaenw pain and are often prescribed following a [...] your community drug take- back program or yourHullrmacy mail-back program, or flush them down the toilet, following guidance from the Food and Drug Administration (www.fda.gov/Drugs/ResourcesForYou). ? Visit www.cdc.gov/drugoverdose to learn about the risks of opioids abuse and overdose. ? If you believe you may be struggling with addiction, tell your health day care attendant and ask for guidance or call [facility]?S National Helpline at 8-760-297-[employer]. v Source: Dep (more content not included)...[facility] Family Medicine Office/Clinic Noteon 06-98-4498Hklpdn Medicine Office/Clinic NoteChief Complaint abdominal pain HPI [...] agree with above documented HPI by medical service technician. Portions of this record may have been created with voice recognition artificial intelligence software, specifically [employer], [employer] and or [employer] Substitutions may have occurred due to the inherent limitations of voice recognition and artificial intelligence software. Patient is a 37-year-old female who presents to [facility], for right lower quadrant pain, that [...] Repeat BP 140/90. 37-year-old female presented to [facility], for right lower quadrant abdominal pain, worseningsymptoms throughout the day, history of ovarian cyst, still has her appendix, no right upper quadrant pain. Patient worsening pain on exam, but no acute abdomen. Patient is willing to go to the emergency room after being discharged from [facility], for further evaluation of right lower [...] loss. We can o (more content not included)...[facility] HospitalComment on above:Result Comment: Electronically Signed By: CHARLA QUINTEROS, JANET\\.br\\Date and Time Signed: 09/28/23 18:28 EDTHEMATOLOGYOrdered By: SYSTEM SYSTEM on 15-38-7890Oehyxgmeo/100 WBC (Bld)0.7 %Normal0.0 - 2.0 %Remisol HemeBasophils/Leukocytes Auto (Bld) [Pure # fraction]0.1 E9/LNormal0.0 - 0.2 E9/LRemisol HemeEosinophils (Bld) [#/Vol]0.0 E9/LNormal0.0 - 0.5 E9/LRemisol HemeEosinophils/100 WBC (Bld)0.5 % Normal0.0 - 8.0 %Remisol HemeErythrocyte distribution width (RBC) [Ratio]14.3 % High10.9 - 14.2 %Remisol HemeHematocrit (Bld) [Volume fraction]39.5 %Natdkc34.0 - 46.0 %Remisol HemeHemoglobin (Bld) [Mass/Vol]13.2 g/lSIbnpws23.0 - 16.0 gm/dL Remisol HemeLymphocytes (Bld) [#/Vol]3.5 E9/LNormal1.0 - 4.0 E9/LRemisol Heme Lymphocytes/100 WBC (Bld)35.6 %Oszanq01.0 - 50.0 %Remisol HemeMCH (RBC) [Entitic mass]29.3 hqWrgarz73.0 - 34.0 pgRemisol HemeMCHC (RBC) [Mass/Vol]33.5 g/dL Nqbtbx98.4 - 36.0 gm/dLRemisol HemeMCV (RBC) [Entitic vol]87.4 vIKjflrw13.0 - 100.0 fLRemisol HemeMonocytes (Bld) [#/Vol]0.7 E9/LNormal0.2 - 1.0 E9/LRemisol HemeMonocytes/100 WBC (Bld)6.8 %Normal4.0 - 14.0 %Remisol HemeNeutrophils (Bld) [#/Vol]5.6 E9/LNormal2.0 - 7.5 E9/LRemisol HemeNeutrophils/100 WBC (Bld)56.4 % Qozuhz70.0 - 75.0 %Remisol HemePlatelet mean volume (Bld) [Entitic vol]8.1 fL Normal6.4 - 10.8 fLRemisol HemePlatelets (Bld) [#/Vol]360.0 E9/TWvjvzv631.0 - 500.0 E9/LRemisol HemeRBC (Bld) [#/Vol]4.5 E12/LNormal4.3 - 5.9 E12/LRemisol HemeWBC corrected for nucl RBC Auto (Bld) [#/Vol]9.9 E9/LNormal4.0 - 11.0 E9/L Remisol HemeHep Func Panelon 32-91-8443Epkyflm [Mass/Vol]4.8 g/dLNormal3.3-5.0 [facility] CenterComment on above:Performed By: #### [id number] #### [facility] [address], [place] [address]Xpvbqdn/Globulin (S) [Mass conc ratio]1.6Rjpdcw5.1-2.2FHolzer Medical Center – JacksonComment on above:Performed By: #### [id number] #### [facility] [address] [place] [address]ERP [Catalytic activity/Vol]66 Int._Unit/LHthgww39-45QuarujLakehealth Beachwood Medical CenterComment on above:Performed By: #### [id number] #### [facility] [address] [place] [address]LTV No additional P-5'-P [Catalytic activity/Vol]16 Int._Unit/L Normal6-46[facility] CenterComment on above:Performed By: #### [id number] #### [facility] [address] [place] [address]YAN [Catalytic activity/Vol]15 Int._Unit/LNormal5-43[facility] CenterComment on above:Performed By: #### [id number] #### [facility] [address] [place] [address]Rpovaewix [Mass/Vol]0.3 mg/dLNormal0.0-1.1FHolzer Medical Center – JacksonComment on above:Performed By: #### [id number] #### [facility] [address] [place] [address]Huusxavxx.direct [Mass/Vol]0.0 mg/dLNormal0.0-0.4FHolzer Medical Center – JacksonComment on above:Performed By: #### [id number] #### [facility] [address] [place] [address]Zdbapwosi.indirect [Mass or moles/Vol]0.3 mg/dLNormal0.1-0.9 [facility] CenterComment on above:Performed By: #### [id number] #### [facility] [address], [place] [address]Uumhdhtm (S) [Mass/Vol]3.0 g/dLNormal1.4-4.0[facility] CenterComment on above:Performed By: #### [id number] #### [facility] [address], [place] [address]Lmxbcyw [Mass/Vol]7.8 g/dLNormal6.0-7.8[facility] CenterComment on above:Performed By: #### [id number] #### [facility] [address], [place] [address]Bnzqzj Levelon 09-52-2701Vwtfwb [Catalytic activity/Vol]26 U/L Njenoa19-89RhfbwwLakehealth Beachwood Medical CenterComment on above:Performed By: #### [id number] #### [facility] [address], [place] [address]Yaxnoab Educationon 45-13-1793Pkkpwzu EducationCardiovascular Hypertension, Adult Hypertension is another name [...] Keep all follow-up visits. Medicines ? Take utzo-zff-oluzurm and prescription medicines only as told by [...] blood. ? For m (more content not included)...[facility] HospitalRAD - Preliminary Cat Scan Reporton 82-69-5870EVW - Preliminary Cat Scan Report [id number]#1.00TIFFNormalKindred Hospital DaytonEROLOGYOrdered By: Amanda Siegel on 16-54-7906Pdef HCG ( test) QlNegative (09/28/23 6:59 PM)[facility] Man SeroUA with Cult Rflxon 07-59-1799Yupykhlhu Ql (U)NegativeNormalNegativeLakehealth Beachwood Medical CenterComment on above:Performed By: #### [id number] ####[facility] Uhxskicrbk[address] AveNorwyckoff heights medical centerk, EN[address]Ghiicuu (U)ClearNormalClearAdventhealther Western Maryland Hospital CenterComment on above:Performed By: #### [id number] ####[facility] Ydfztzkjqs8[address] Madrid AveNorwalk, SI[address]Mgdld (U)ColorlessAbnormalYellowLakehealth Beachwood Medical CenterComment on above:Result Comment: Microscopic readings are only performed on those samples that meet specific criteria set forth by [facility] Laboratory.Performed By: #### [id number] ####[place] [address] AveNgaylord hospital, YJ[address]Zbvtwio Ql (U)Negative NormalNegativeLakehealth Beachwood Medical CenterComment on above:Performed By: #### [id number] ####[address] AveNormt. sinai hospital, [place] [address]Jpojwqvafp Auto test strip (U) [Mass/Vol]NegativeNormalNegativeLakehealth Beachwood Medical CenterComment on above:Performed By: #### [id number] ####[place] [address] AveNormt. sinai hospital, TS[address]Prffbvu Auto test strip Ql (U)NegativeNormalNegativeLakehealth Beachwood Medical CenterComment on above: Performed By: #### [id number] ####[place] [address] AveNormt. sinai hospital, FX[address]Riqlzfwew esterase Auto test strip Ql (U)Negative NormalNegativeLakehealth Beachwood Medical CenterComment on above:Performed By: #### [id number] ####[facility] Kxswfneuai335 Madrid AveNormt. sinai hospital, [place] [address]Qxwrcec Auto test strip Ql (U)NegativeNormalNegativeLakehealth Beachwood Medical CenterComment on above:Performed By: #### [id number] ####[place] [address] AveNorwalk, QB49608iG (U)7.0 [pH]Invalid Interpretation Code5.0-9.0[facility] CenterComment on above:Performed By: #### [id number] ####[facility] Bywujixvym055 [facility], FK[address]Cubwocy Ql (U)NegativeNormalNegativeLakehealth Beachwood Medical CenterComment on above:Performed By: #### [id number] ####[facility] Txwzxwtrjf919 [facility], VO03394Jzgsnkut gravity (U) [Rel density]1.003Invalid Interpretation Code1.005-1.030[facility] Comment on above:Performed By: #### [id number] ####[address], VN[address]Ccbhsiqeslqi (U) [Mass/Vol]Negative NormalNegativeLakehealth Beachwood Medical CenterComment on above:Performed By: #### [id number] ####[place] [address] [facility] [place] [address]Yogd of Urine collection methodClean [facility] Comment on above:Performed By: #### [id number] ####[place] [address] [facility] [id number] By: SYSTEM SYSTEM on 78-71-3995Ynrewogcx Ql (U)NegativeNormalNegativemg/dLNORTHWEST SURGICAL HOSPITAL [facility] [place] UA Auto SSClarity (U) Clear (09/28/23 7:35 PM)NormalClearFTMC UA Auto SSColor (U)Colorless 1 *ABN* (09/28/23 7:35 PM)Invalid Interpretation CodeYellowNORTHWEST SURGICAL HOSPITAL – [place] UA Auto SSComment on above:Interpretive Data: Microscopic readings are only performed on those samples that meet specific criteria set forth by [facility].Glucose Ql (U)NegativeNormalNegativemg/dLFT UA Auto SSHemoglobin Auto test strip (U) [Mass/Vol]NegativeNormalNegativemg/dLFT UA Auto SSKetones Auto test strip Ql (U)NegativeNormalNegativemg/dLFT UA Auto SSLeukocyte esterase Auto test strip Ql (U)NegativeNormalNegativeLeu/uLFT UA Auto SS Nitrite Auto test strip Ql (U)NegativeNormalNegativemg/dLFT UA Auto SSpH (U) 7.0 *NA* (09/28/23 7:35 PM)Invalid Interpretation Code5.0 - 9.0[facility] [place] [place] UA Auto SSProtein Ql (U)NegativeNormalNegativemg/dLNORTHWEST SURGICAL HOSPITAL – [place] UA Auto SSSpecific gravity (U) [Rel density] 1.003 *NA* (09/28/23 7:35 PM)Invalid Interpretation Code1.005 - 1.030[facility] [place] UA Auto SS Urobilinogen (U) [Mass/Vol]NegativeNormalNegativemg/dLNORTHWEST SURGICAL HOSPITAL – [place] UA Auto SSURINALYSIS Ordered By: Bijan Miramontes on 67-19-1588MV Spec DescClean Catch (09/28/23 7:35 PM)NormalNORTHWEST SURGICAL HOSPITAL – [place] UA Auto SS egFRon 40-53-7730eQBJ90 mL/min/1.73 j6Wzktkf>=59Fisher [facility] CenterComment on above:Order Comment: Order added by Discern Expert.Performed By: #### [id number] #### [facility] Laboratory [address], [place] [address]Zfiutinivc Visit Summaryon 40-29-9928Uhviiefhsz Visit Summary SANNA RENDON :1985 Visit Date:08/03/2023 [...] (Vitamin D) fluticasone nasal (Flonase 0.05 mg/inh Wing) metformin (MetFORMIN (Eqv-Glucophage XR) 500 mg oral [...] PED When: In 4 months Where: [address] [place] [address]- You Need to Complete the Following HgbA1c, [...] Unchanged fluticasone nasal (Flonase 0.05 mg/ inh Wing) 2 Sprays Nasal Inhalation Every day each [...] ? Walking a mile (more content not included)...[facility] Medicine Office/Clinic Noteon 40-18-1162Dvdqed Medicine Office/Clinic NoteChief Complaint Wants to discuss [...] comfortable with plan. PNMV Ordered: A1c POC 75122 Total time spent preparing the chart, conducting [...] FAAFP, FAM, PED In 4 months [address] [facility], [facility] [place] [address]- Additional Instructions: Patient Education Exercising to Lose Weight Problem Lis (more content not included)...[facility] Comment on above:Result Comment: Electronically Signed By: Penelope CASAS DO, FAAFP\\.br\\Date and Time Signed: 08/03/23 12:19 EDTPSaint [facility] 08-03-2023 Patient EducationPhysical Medicine and Rehabilitation Exercising [...] your health care provider or diet and livestock nutrition territory manager (dietitian). This may include: ? Eating [...] regular exercise is e (more content not included)...[facility] HospitalPatient Educationon 23-59-5663Rmrpdam EducationEndocrinology Blood Glucose Monitoring, Adult Monitoring your [...] meter by following in (more content not included)...[facility] HospitalLab Reportson 41-84-9016Exk Reports [id number]#1.00City HospitalConsultation Noteon 12-08-9557Orizmxtlyjvd Note [id number]#1.00City HospitalAmbulatory Visit Summaryon 90-88-4546Dwdtxmiras Visit Summary SANNA RENDON :1985 Visit Date:05/25/2023 [...] CASAS DO, FAAFP [facility] CareNoTri[facility] Office/Clinic Noteon 07-50-2089Tqnsgr Medicine Office/Clinic NoteChief Complaint States she is [...] Benadryl. 2. Dyshidrotic eczema (L30.1: Dyshidrosis [pompholyx]) Dkyo-lpm-iexjlvp hydrocortisone cream 1% or 2.5% as directed. [...] FAAFP, FAM, PED In 2 months [address] [facility], [place] [address]- Additional Instructions: Patient Education Eustachian Tube Dysfunction Dyshidrotic Eczema Allergies, Tadeo (more content not included)...[facility] Comment on above:Result Comment: Electronically Signed By: Penelope CASAS DO, FAAFP\\.br\\Date and Time Signed: 05/25/23 12:02 ESTPatient Educationon [...] ears completely after. General instructions ? Take asmy-hvp-ddporqf and prescription medicines only as told by [...] cases are treated w (more content not included)...[facility] Urineon 35-71-6863Pysqbshr identified Cx Nom (U) Microbiology PROCEDURE: Urine Culture [R1] SOURCE: U Random BODY SITE: COLLECTED DATE/TIME: 05/01/2023 18:00 EST RECEIVED DATE/TIME: 05/01/2023 18:08 EST START DATE/TIME: 05/01/2023 18:08 EST FREE TEXT SOURCE: Penelope CASAS DO, FAAFP, DO, FAAFP, Penelope Tony FINAL REPORTS Final Report [] Verified Date/Time: 05/03/2023 07:00 EST <10,000 cfu/ml Mixed skin contaminants Performing Locations R1: This test was performed at: [facility], [address] [place] [address], [address]- , [place], NrwnyaJiofahSt. Mary's Medical Center, Ironton CampusComment on above:Performed By: #### [id number] ####[address] [address]Sgdyotj for Treatmenton 51-03-0225Bjilezx for Treatment [id number]#1.00TIFFProMedica Bay Park HospitalUrinalysison 36-72-4942Lxiohojc LM Ql (Urine sed)TRACENormalTraceLakehealth Beachwood Medical CenterComment on above:Performed By: #### [id number] ####[address] [address]Cyciitsls Ql (U) NegativeNormalNegativeLakehealth Beachwood Medical CenterComment on above:Performed By: #### [id number] ####[address] [address]Hqhuvdm (U)CLOUDYAbnormalClearFHolzer Medical Center – JacksonComment on above:Performed By: #### [id number] ####[address] [address]Uvekl (U)YELLOWNormalYellowLakehealth Beachwood Medical CenterComment on above:Performed By: #### [id number] ####[address] [address]Rltbambosv cells.squamous LM.HPF (Urine sed) [#/Area]/[HPF]Normal0-2FHolzer Medical Center – JacksonComment on above:Performed By: #### [id number] ####[address] [address]Fjdwrsy Test strip (U) [Mass/Vol]NegativeNormal NegativeLakehealth Beachwood Medical CenterComment on above:Performed By: #### [id number] ####[address] [address] Hemoglobin Ql (U)NegativermalNegKing's Daughters Medical Center OhioComment on above:Performed By: #### [id number] ####[address] [address]Ehcdcaz (U) [Mass/Vol]NegativeNormalNegativeLakehealth Beachwood Medical CenterComment on above:Performed By: #### [id number] ####[address] [address] [place].plasma/[place].RBC (Bld) [Mass ratio]1-1Qeuytg8-2Gudrvd [facility] CenterComment on above:Performed By: #### [id number] ####[address] [address]Rikkedn Ql (U)NegativeNormal [facility] Columbus SouthComment on above:Performed By: #### [id number] ####[address] [address]gH (U)6.0 [pH]Invalid Interpretation Code5.0-9.0[facility] Medical CenterComment on above:Performed By: #### [id number] ####[address] [address]Qkpnvyv (U) [Mass/Vol]NegativeNormal NegativeLakehealth Beachwood Medical CenterComment on above:Performed By: #### [id number] ####[address] [address] Specific gravity (U) [Rel density]<=1.005Invalid Interpretation Code1.005-1.030 [facility] CenterComment on above:Performed By: #### [id number] ####[address] [address]Yvfm of Urine collection methodClean CatchNormalLakehealth Beachwood Medical CenterComment on above:Performed By: #### [id number] ####[address], [place] [address]Tsvkbasbckyg Qn (U)0.2 {Nicole'U}/dLNormal0.0-1.0 [facility] CenterComment on above:Performed By: #### [id number] ####[facility] [address] [place], [place] [address]NJF Auto Ql (U)TRACEAbnormalNegativeLakehealth Beachwood Medical CenterComment on above: Performed By: #### [id number] ####[facility] [address] [place], [place] [address]BLF LM.HPF (Urine sed) [#/Area]8-0Hfxmid4-4Ntnvbk [facility] CenterComment on above:Performed By: #### [id number] ####[facility] [address] [place], [place] [address]Ihxkvghclu Visit Summaryon 40-68-2542Brirxzeuod Visit Summary SANNA RENDON :1985 Visit Date:04/27/2023 [...] CASAS DO, FAAFP [facility] Primary CareNoSt. [facility] CHEMISTRYOrdered By: SYSTEM SYSTEM on 23-94-7445MFT Qn4.04 m[IU]/LNormal0.34 - 5.60 mcIU/mLRemisol ChemMartha'S [facility]yard [facility] Medicine Office/Clinic Noteon 87-99-8332Aokhzn Medicine Office/Clinic NoteChief Complaint Since last Sunday [...] feeding. No loss of taste nor smell. [id number] while taking Glucophage XR 500 mg p.o. [...] Push fluids and Tylenol and or ibuprofen ywlb-xwg-mphvbpn as directed. Patient does not appear ill [...] Your BMIand weight manag (more content not included)...[facility] HospitalComment on above: Result Comment: Electronically Signed By: PRAVEEN RESENDEZ FAAFP, Penelope Tony\\.br\\Date and Time Signed: 04/27/23 12:53 ESTPatient Educationon 14-59-3936Lptdohh Education Endocrinology Diabetes Mellitus and Exercise Exercising [...] plan? Your health care provider or certified medical records coder can help you make a plan for [...] stroke). Where to find more information ? [place] [employer]: www.diabetes.org Summary ? Exercising regularly is important for overall health, especially for people who have diabetes mellitus. ? Exercising has many health benefits. It increases muscle strength and bone density and reduces body fat and stress. It also lowers and controls blood glucose. ? Your health care provider or certified medical records coder can help you make an activity plan [...] provider. Document Revised: 01/12/2020 Document Reviewed: 01/12/2020 ElseCuriously Patient Education ? 2022 [employer] Preventing Hypoglycemia Hypoglycemia occurs when the level of sugar (glucose) in the blood is too low. Hypoglycemia can happen in people who do or do not have diabetes (diabetes (more content not included)...NormalLakehealth Beachwood Medical CenterTSHon 29-82-1102MVC Qn 4.04 m[IU]/LNormal0.34-5.60[facility] Medical CenterComment on above:Performed By: #### [id number] ####[facility] [address] [place], [place] [address]Tcykgqoify Visit Summaryon 28-43-4661Dlekzdgdra Visit Summary SANNA RENDON :1985 Visit Date:02/15/2023 [...] PED When: In 2 months Where: [address] [place] [address]- You Need to Complete the Following HgbA1c, [...] miscarriage Suspected COVID-19 virus infection Vaginal tabitha [facility] Medicine Office/Clinic Noteon 38-26-5464Nrdqww Medicine Office/Clinic NoteChief Complaint States since Sunday her right ear is draining and is a little painful 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 She is continuing 500 mg of metformin [...] Contact Information PRAVEEN Johnson (more content not included)...[facility] HospitalComment on above:Result Comment: Electronically Signed By: Penelope CASAS DO, FAAFP\\.br\\Date and Time Signed: 02/15/23 10:13 EDTPatient Educationon [...] cannot use soap and water, use hand block sorter. 2. Make sure your ears are clean [...] cannot use soap and water, use hand block sorter. Follow these instructions at home: ? Use [...] Reviewed: 02/11/2020 Elsevier Patient Education ? 2022 [employer] Infectious Disease Otitis Externa Otitis externa [...] you start to feel better. ? Take svlf-qpg-unnugio and prescription medicines only as told by your doctor. ? Avoid getting water in your ears as told by your doctor. You may be told to avoid swimming or water sports for a few days. ? Keep all follow-up visits. How is this prevented? ? Keep your ears dry. Use the corner o (more content not included)...Normal [facility] Medical CenterPatient Educationon 36-54-3816Sjjcswv Education Immunology Fatigue If you have fatigue, [...] these instructions at home: Medicines ? Take viky-pjh-bwcapec and prescription medicines only as told by [...] the National Suicide Prevention Lifeline at or 688. This is open 24 hours a day. ? Text the Crisis Text Line at 157088. Summary ? If you have fatigue, you [...] provider. Document Revised: 02/06/2022 Document Reviewed: 02/06/2022 [employer] Patient Education ? 2022 [employer] Urology Urodynamic Testing Urodynamic tests are [...] ? Leaking urine (inco (more content not included)...NormalLakehealth Beachwood Medical CenterCHEMISTRYOrdered By: SYSTEM SYSTEM on 08-91-5514Hxys T4 [Mass/Vol]0.58 ng/dLNormal0.58 - 1.64 ng/dLFTMC RemisolTSH Qn3.35 m[IU]/LNormal0.34 - 5.60 mcIU/mLFTMC RemisolAlbumin [Mass/Vol]4.5 g/dLNormal3.3 - 5.0 gm/dLFTMC Remisol Albumin/Globulin [Mass ratio]1.4 {ratio}Normal1.1 - 2.2FTMC RemisolALP [Catalytic activity/Vol]62 [iU]/tAfgxtb81 - 98 Int._Unit/LFTMC RemisolALT No additional P-5'-P [Catalytic activity/Vol]27 [iU]/dNormal6 - 46 Int._Unit/LFTMC RemisolAnion gap [Moles/Vol]13 mmol/LNormal6 - 16 mEq/LFTMC RemisolAST [Catalytic activity/Vol]21 [iU]/dNormal5 - 43 Int._Unit/LFTMC RemisolBilirubin [Mass/Vol]0.3 mg/dLNormal0.0 - 1.1 mg/dLFTMC RemisolCalcium [Mass/Vol]9.6 mg/dL Normal8.9 - 11.1 mg/dLFTMC RemisolChloride [Moles/Vol]104 mmol/NAftqvl218 - 111 mmol/LFTMC RemisolCO2 [Moles/Vol]25 mmol/BXxkezi04 - 31 mmol/LFTMC Remisol Cobalamin (Vitamin B12) [Mass/Vol]211 pg/kCPxwyss74 - 1500 pg/mLFTMC Remisol Creatinine [Mass/Vol]0.9 mg/dLNormal0.5 - 1.3 mg/dLFTMC RemisolFerritin [Mass/Vol]38 ng/kNTnvplr58 - 307 ng/mLFTMC RemisolFolate [Mass/Vol]13.5 ng/mL Normal>=6.7ng/mLFTMC RemisolGFR/1.73 sq M.predicted among non-blacks MDRD (S/P/Bld) [Vol rate/Area]85 mL/min/1.73 v5Rtbxoc>=59mL/min/1.73 m2[facility] Chem S Globulin (S) [Mass/Vol]3.3 g/dLNormal1.4 - 4.0 gm/dLFTMC RemisolGlucose [Mass/Vol]93 mg/sPRbxbpe07 - 199 mg/dLFTMC RemisolIron [Mass/Vol]56 ug/dLNormal 35 - 153 mcg/dLFTMC RemisolIron binding capacity [Mass/Vol]395 ug/tEHikdns245 - 400 mcg/dLFTMC RemisolPotassium [Moles/Vol]3.7 mmol/LNormal3.5 - 5.3 mmol/LFTMC RemisolProtein [Mass/Vol]7.8 g/dLNormal6.0 - 7.8 gm/dLFTMC RemisolSodium [Moles/Vol]138 mmol/ITcfsbe163 - 145 mmol/LFTMC RemisolTransferrin [Mass/Vol]282 mg/mPMjimwf101 - 370 mg/dLFTMC RemisolUrea nitrogen [Mass/Vol]11 mg/dLNormal5 - 21 mg/dLFTMC RemisolUrea nitrogen/Creatinine [Mass ratio]12 mg/ctNrfhyc72 - 20 [facility] RemisolHEMATOLOGYOrdered By: SYSTEM SYSTEM on 83-57-3204Zjvfndcpl/100 WBC (Bld)0.6 %Normal0.0 - 2.0 %[facility] HemeAutoSSBasophils/Leukocytes Auto (Bld) [Pure # fraction]0.0 E9/LNormal0.0 - 0.2 E9/LFTMC HemeAutoSSEosinophils/100 WBC (Bld) 1.1 %Normal0.0 - 8.0 %[facility] HemeAutoSSEosinophils/Leukocytes Auto (Bld) [Pure # fraction]0.1 E9/LNormal0.0 - 0.5 E9/LFTMC HemeAutoSSLymphocytes/100 WBC (Bld) 42.4 %Ehumoa88.0 - 50.0 %[facility] HemeAutoSSLymphocytes/Leukocytes Auto (Bld) [Pure # fraction]3.4 E9/LNormal1.0 - 4.0 E9/LFTMC HemeAutoSSMonocytes/100 WBC (Bld)8.0 %Normal4.0 - 14.0 %[facility] HemeAutoSSMonocytes/Leukocytes Auto (Bld) [Pure # fraction]0.6 E9/LNormal0.2 - 1.0 E9/LFTMC HemeAutoSSNeutrophils/100 WBC (Bld) 47.9 %Eeseml09.0 - 75.0 %[facility] HemeAutoSSNeutrophils/Leukocytes Auto (Bld) [Pure # fraction]3.8 E9/LNormal2.0 - 7.5 E9/LFTMC HemeAutoSSHEMATOLOGYOrdered By: Trena Castro on 61-18-7851Fycueoaqtgh distribution width (RBC) [Ratio]14.5 % High10.9 - 14.2 %[facility] HemeAutoSSHematocrit (Bld) [Volume fraction]37.4 %Normal 34.0 - 46.0 %[facility] HemeAutoSSHemoglobin (Bld) [Mass/Vol]13.1 g/rHLqsryn03.0 - 16.0 gm/dLFTMC HemeAutoSSMCH (RBC) [Entitic mass]30.6 blOvktra52.0 - 34.0 pgFTMC HemeAutoSSMCHC (RBC) [Mass/Vol]34.9 g/gERdkrpz72.4 - 36.0 gm/dLFTMC HemeAutoSS MCV (RBC) [Entitic vol]87.7 cZErfzru44.0 - 100.0 fLFTMC HemeAutoSSPlatelet mean volume (Bld) [Entitic vol]8.2 fLNormal6.4 - 10.8 fLFTMC HemeAutoSSPlatelets (Bld) [#/Vol]334.0 E9/EDhqdqs551.0 - 500.0 E9/LFTMC HemeAutoSSRBC (Bld) [#/Vol] 4.3 E12/LNormal4.3 - 5.9 E12/LFTMC HemeAutoSSWBC corrected for nucl RBC Auto (Bld) [#/Vol]7.9 E9/LNormal4.0 - 11.0 E9/LFT[facility] HemeAutoSSCHEMISTRYOrdered By: SYSTEM SYSTEM on 48-27-4096Wayj T4 [Mass/Vol]0.58 ng/dLNormal0.58 - 1.64 ng/dL [facility] RemisolTSH Qn3.10 m[IU]/LNormal0.34 - 5.60 mcIU/mLFTMC RemisolCHEMISTRY Ordered By: Valeri German on 97-70-9203PbW7a (Bld) [Mass fraction]5.9 %Normal <=5.9%[facility] ChemAutoSSCHEMISTRYOrdered By: SYSTEM SYSTEM on 41-02-0844Vqun T4 [Mass/Vol]0.71 ng/dLNormal0.58 - 1.64 ng/dLFTMC RemisolTSH Qn3.77 m[IU]/LNormal 0.34 - 5.60 mcIU/mLFTMC RemisolCBC AUTO DIFFon [id number] #0.0 103/ulNormal 0.0-0.1The [facility] HospitalComment on above:Performed By: #### HIV12 #### [facility] [address] [address] [address] Edward GillBasophils/100 WBC (Bld)0.4 %Normal0.2-2.0The [facility] Comment on above:Performed By: #### HIV12 #### [facility] [address] [address] [address] Edward Traore #0.1 103/ulNormal0.0-0.7The [facility] HospitalComment on above: Performed By: #### HIV12 #### [facility] [address] [address] [address] Edward Calhounosinophils/100 WBC (Bld)1.3 %Normal0.9-7.0The [facility] Comment on above:Performed By: #### HIV12 #### [facility] [address] [address] [address] Edward Calhounrythrocyte distribution width (RBC) [Ratio]16.6 %Critically high 11.0-15.0The [facility] HospitalComment on above:Performed By: #### HIV12 #### [facility] [address] [address] [address] Edward GillHematocrit (Bld) [Volume fraction]30.2 %Critically low36.0-48.0 The [facility] HospitalComment on above:Performed By: #### HIV12 #### [facility] [address] [address] [address] Edward GillHemoglobin (Bld) [Mass/Vol]10.5 g/dLCritically low12.0-16.0The [facility] HospitalComment on above:Performed By: #### HIV12 #### [facility] [address] [place] [address] Dr. Edward Ray #0.04 10e3/ulCritically high0.00-0.03The [facility] Comment on above:Performed By: #### HIV12 #### [facility] [address] [place] [address] Dr. Edward Ray %0.4 %Normal0.0-0.5The [facility] HospitalComment on above: Performed By: #### HIV12 #### [facility] [address] [place] [address] Dr. Edward Velásquez #3.1 103/ulNormal1.2-3.8The [facility] HospitalComment on above:Performed By: #### HIV12 #### [facility] [address] [place] [address] Dr. Edward Alvarezhocytes/100 WBC (Bld)34.2 %Rrsyuz40.5-60.0[facility] HospitalComment on above:Performed By: #### HIV12 #### [facility] [address] [place] [address] Dr. Edward SimmonsUAL DIFF REQNONormalThe [facility] HospitalComment on above: Performed By: #### HIV12 #### [facility] [address] [place] [address] Dr. Edward June (RBC) [Entitic mass]30.3 gmUeseyq47.7-34.0The [facility] HospitalComment on above:Performed By: #### HIV12 #### [facility] [address] [place] [address] Dr. Edward June (RBC) [Mass/Vol]34.8 g/sHZpmfgn12.9-35.2The [facility] HospitalComment on above:Performed By: #### HIV12 #### [facility] [address] [place] [address] Dr. Edward Desai (RBC) [Entitic vol]87.0 pVAsnnmh00.0-99.0The [facility] HospitalComment on above:Performed By: #### HIV12 #### [facility] [address] [place] [address] Dr. Edward Rosas #0.7 103/ulNormal0.3-0.8The [facility] HospitalComment on above:Performed By: #### HIV12 #### [facility] [address] [place] [address] Dr. Edward Ignacioocytes/100 WBC (Bld)7.5 %Normal1.7-12.0The [facility] Comment on above:Performed By: #### HIV12 #### [facility] [address] [place] [address] Dr. Edward Guevara #5.0 103/ulNormal1.4-6.5The [facility] HospitalComment on above:Performed By: #### HIV12 #### [facility] [address] [place] [address] Dr. Edward Moralesutrophils/100 WBC (Bld)56.2 %Fdgxie66.0-75.0The [facility] HospitalComment on above:Performed By: #### HIV12 #### [facility] [address] [place] [address] Dr. Edward Serranolet mean volume (Bld) [Entitic vol]9.8 fLNormal9.5-13.5The [facility] HospitalComment on above:Performed By: #### HIV12 #### [facility] [address] [place] [address] Dr. Edward GillPLT238 103/jjEgicpg938-327Tvt [facility] HospitalComment on above: Performed By: #### HIV12 #### [facility] [address] [place] [address] Dr. Edward GillRBC3.47 106/ulCritically low4.20-5.40The [facility] HospitalComment on above:Performed By: #### HIV12 #### [facility] [address] [place] [address] Dr. Edward GillWBC9.0 103/ulNormal4.0-11.0The [facility] HospitalComment on above: Performed By: #### HIV12 #### [facility] [address] [place] [address] Dr. Edward GillFETAL SCREENon 23-60-0141QKKBJ SCREENNegativeUniversity Hospitals Beachwood Medical CenterComment on above:Performed By: #### FETSCRN #### [facility] [address] [place] [address] Dr. Edward GillDIRECT COOMBSon 09-33-9664QUXWEB COOMBSNegMercer County Community HospitalComment on above:Performed By: #### DIRCMB #### [facility] [address] [place] [address] Dr. Edward GillPOINT OF CARE GLUCOSEon 56-67-8297Xdrhlxd [Mass/Vol]117 mg/dL Critically bvih49-193Opi [facility] HospitalComment on above:Performed By: #### POCGLUC ####[facility] [address] [place], [place] [address]Dr. Edward GillTYPE AND SCREENon 03-55-6440OMGU AND SCREENNegativeUniversity Hospitals Beachwood Medical CenterComment on above:Performed By: #### TNS #### [facility] [address] [place] [address] Dr. Edward GillCBC AUTO DIFFon [id number] #0.0 103/ulNormal0.0-0.1The [facility] HospitalComment on above:Performed By: #### HIV12 #### [facility] [address] [place] [address] Dr. Edward GillBasophils/100 WBC (Bld)0.2 %Normal0.2-2.0The [facility] Comment on above:Performed By: #### HIV12 #### [facility] [address] [place] [address] Dr. Edward Traore #0.0 103/ulNormal0.0-0.7The [facility] HospitalComment on above: Performed By: #### HIV12 #### [facility] [address] [place] [address] Dr. Edward Calhounosinophils/100 WBC (Bld)0.5 %Critically low0.9-7.0The [facility] HospitalComment on above:Performed By: #### HIV12 #### [facility] [address] [place] [address] Dr. Edward Calhounrythrocyte distribution width (RBC) [Ratio]16.1 %Critically high 11.0-15.0The [facility] HospitalComment on above:Performed By: #### HIV12 #### [facility] [address] [place] [address] Dr. Edward GillHematocrit (Bld) [Volume fraction]32.1 %Critically low36.0-48.0 The [facility] HospitalComment on above:Performed By: #### HIV12 #### [facility] [address] [place] [address] Dr. Edward GillHemoglobin (Bld) [Mass/Vol]11.7 g/dLCritically low12.0-16.0The [facility] HospitalComment on above:Performed By: #### HIV12 #### [facility] [address] [place] [address] Dr. Edward Ray #0.04 10e3/ulCritically high0.00-0.03The [facility] Comment on above:Performed By: #### HIV12 #### [facility] [address] [place] [address] Dr. Edward Ray %0.5 %Normal0.0-0.5The [facility] HospitalComment on above: Performed By: #### HIV12 #### [facility] [address] [place] [address] Dr. Edward Velásquez #2.4 103/ulNormal1.2-3.8The [facility] HospitalComment on above:Performed By: #### HIV12 #### [facility] [address] [place] [address] Dr. Edward Ronmphocytes/100 WBC (Bld)27.2 %Oshlgn51.5-60.0The [facility] HospitalComment on above:Performed By: #### HIV12 #### [facility] [address] [place] [address] Dr. Edward SimmonsUAL DIFF REQNONormalThe [facility] HospitalComment on above: Performed By: #### HIV12 #### [facility] [address] [place] [address] Dr. Edward De Leon (RBC) [Entitic mass]30.0 knRybsob47.7-34.0The [facility] HospitalComment on above:Performed By: #### HIV12 #### [facility] [address] [place] [address] Dr. Edward June (RBC) [Mass/Vol]36.4 g/dLCritically high29.9-35.2The [facility] HospitalComment on above:Performed By: #### HIV12 #### [facility] [address] [place] [address] Dr. Edward Desai (RBC) [Entitic vol]82.3 eTMqocmv59.0-99.0The [facility] HospitalComment on above:Performed By: #### HIV12 #### [facility] [address] [place] [address] Dr. Edward Rosas #0.7 103/ulNormal0.3-0.8The [facility] HospitalComment on above:Performed By: #### HIV12 #### [facility] [address] [place] [address] Dr. Edward Ignacioocytes/100 WBC (Bld)7.7 %Normal1.7-12.0The [facility] Comment on above:Performed By: #### HIV12 #### [facility] [address] [place] [address] Dr. Yilan ChangNEUT #5.5 103/ulNormal1.4-6.5The [facility] HospitalComment on above:Performed By: #### HIV12 #### [facility] [address] [place] [address] Dr. Edward Moralesutrophils/100 WBC (Bld)63.9 %Cvnskw90.0-75.0The [facility] HospitalComment on above:Performed By: #### HIV12 #### [facility] [address] [place] [address] Dr. Edward GillPlatelet mean volume (Bld) [Entitic vol]10.0 fLNormal9.5-13.5The [facility] HospitalComment on above:Performed By: #### HIV12 #### [facility] [address] [place] [address] Dr. Edward GillPLT274 103/adKkecwp780-582Xnx [facility] HospitalComment on above: Performed By: #### HIV12 #### [facility] [address] [place] [address] Dr. Edward GillRBC3.90 106/ulCritically low4.20-5.40The [facility] HospitalComment on above:Performed By: #### HIV12 #### [facility] [address] [place] [address] Dr. Edward GillWBC8.7 103/ulNormal4.0-11.0The [facility] HospitalComment on above: Performed By: #### HIV12 #### [facility] [address] [place] [address] Dr. Edward GillCovid-19 PCR ([facility]VDCOO[facility])on 38-52-5063BCLJ-CoV-2 (COVID-19) RNA LELO+probe Ql (Unsp spec)Not detectedNormalNOT DETECTEDThe [facility] Comment on above:Result Comment: When [...] for this test is supported by the Title I Coordinator of Health and Human Service's declaration that [...] longer be used).Performed By: #### HIV12 #### [facility] [address] [address] [address] Edward GillDRUG SCREEN RAPID (URINE)on [id number]F [facility] HospitalComment on above:Performed By: #### DRUGRPD ####[facility] [address] [address]Dr. Edward GillBAR NegativeNormalNEGATIVELouis Stokes Cleveland Va Medical Center HospitalComment on above:Performed By: #### DRUGRPD ####[facility] [address] [address]Dr. Edward GillBUPNegativeNormalNEGATIVEMemorial Health System Selby General HospitalComment on above:Performed By: #### DRUGRPD ####[facility] [address] [address]Dr. Edward GillBZONegativeNormalNEGATIVEMemorial Health System Selby General HospitalComment on above:Performed By: #### DRUGRPD ####[facility] [address] [address]Dr. Edward GillCOCNegative NormalNEGATIVEMemorial Health System Selby General HospitalComment on above:Performed By: #### DRUGRPD ####[facility] [address] [place], [place] [address]Dr. Edward GillCUT-OFFSSEE BELOWUniversity Hospitals Beachwood Medical CenterComment on above:Result Comment: AMP (Amphetamine): 500ng/mL, BAR (Barbituates): 200 ng/mL, BZO (Benzodiazepines): 150 ng/mL, BUP (Buprenorphine): 10 ng/mL, INDIA (Cocaine): 150 ng/mL, mAMP (Methamphetamine): 500 ng/mL, MTD (Methadone): 200 ng/mL, OPI (Opiates): 100 ng/mL, OXY (Oxycodone): 100 ng/mL, PCP (Phencyclidine): 25 ng/mL, PPX (Propoxyphene): 300 ng/mL, THC (Cannabinoids): 50 ng/mL, TCA (Trycyclic Antidepressants): 300 ng/mLPerformed By: #### DRUGRPD ####[facility] [address] [place], [place] [address]Dr. Edward ChangDRUG CUT HEADERDRUG CLASS TEST SYSTEM CUT-OFF CONCENTRATIONS ARE FOLLOWS:NormalThe [facility] HospitalComment on above:Performed By: #### DRUGRPD ####[facility] [address] [place], [place] [address]Dr. Edward ChangmAMP NegativeNormalNEGATIVELouis Stokes Cleveland [facility] HospitalComment on above:Performed By: #### DRUGRPD ####[facility] [address] [place], [place] [address]Dr. Yilan ChangMTDNegativeNormalNEGATIVELouis Stokes [facility] HospitalComment on above:Performed By: #### DRUGRPD ####[facility] [address] [place], [place] [address]Dr. Yilan ChangOPINegativeNormalNEGATIVELouis [facility] HospitalComment on above:Performed By: #### DRUGRPD ####[facility] [address] [place], [place] [address]Dr. Yilan ChangOXYNegative NormalNEGATIVELouis Stokes [facility] HospitalComment on above:Performed By: #### DRUGRPD ####[facility] [address] [place], [place] [address]Dr. Yilan ChangPCPNegativeNormalNEGATIVELouis Stokes [facility] HospitalComment on above: Performed By: #### DRUGRPD ####[facility] [address] [place], [place] [address]Dr. Yilan ChangPPXNegativeNormalNEGATIVELouis Stokes [facility] HospitalComment on above:Performed By: #### DRUGRPD ####[facility] [address] [id number]. Edward GillTCANegative NormalNEGATIVEMemorial Health System Selby General HospitalComment on above:Performed By: #### DRUGRPD ####[facility] [address] [address]Dr. Edward GillTHCNegativeNormalNEGATIVEMemorial Health System Selby General HospitalComment on above: Performed By: #### DRUGRPD ####[facility] [address] [id number]. Edward Sherwood PREG BIOPHY W NON STRESSon [id number] PREG BIOPHY W NON STRESSEXAMINATION: US PREG [...] Electronically authenticated by: HUMERA KIM Date: 2022-05-06 19:05[facility] [place] [facility] PREG BIOPHY W NON STRESSon [id number] PREG BIOPHY W NON STRESSEXAMINATION: US PREG [...] Electronically authenticated by: ANGIE GALDAMEZ Date: 2022-05-01 16:16[facility] STREP CULTUREon 04-23-2022. agalactiae Ag [...] Tetracycline >=16 R F Vancomycin =0.5 S FNormalMemorial Health System Selby General HospitalComment on above:Performed By: #### GBSCX ####[facility] [address] [place], [place] [address]Zi. Edward GillUS PREG BIOPHY W NON STRESSon [id number] PREG BIOPHY W NON STRESSEXAMINATION: US PREG [...] Electronically authenticated by: HUMERA KIM Date: 2022-04-17 17:[address] [place] [address] PREG GROWTHon [id number] PREG GROWTHEXAMINATION: US PREG GROWTH HISTORY: Gestational [...] Electronically authenticated by: HUMERA KIM Date: 2022-04-17 16:49[facility] [place] [facility] PREG BIOPHY W NON STRESSon [id number] PREG BIOPHY W NON STRESSEXAMINATION: US PREG [...] Electronically authenticated by: HUMERA KIM Date: 2022-04-12 08:56[facility] Medical CenterGLUCOSE, BLOOD (POC)on [id number] [Mass/Vol]106 mg/dL Vjqemdjq62 - 99 mg/dLProMedica Bay Park Hospital PREG BIOPHY W NON STRESSon [id number] PREG BIOPHY W NON STRESSEXAMINATION: US PREG [...] Electronically authenticated by: HUMERA KIM Date: 2022-04-01 16:08[facility] [place] [facility] PREG BIOPHY W NON STRESSon [id number] PREG BIOPHY W NON STRESSEXAMINATION: US PREG [...] authenticated by: HUMERA KIM Date: 2022-03-27 08:54NoSt. Mary's Medical CenterUS PREG GROWTHon [id number] PREG GROWTHEXAMINATION: US PREG GROWTH HISTORY: Maternal [...] Electronically authenticated by: HUMERA KIM Date: 2022-03-17 06:04[facility] Medical CenterTSHon 75-07-7390KXR4.586 uIU/mLNormal0.358-3.740The [facility] HospitalComment on above:Performed By: #### HIV12 #### [facility] [address] [place] [address] Dr. Edward GillTYPE AND SCREENon [id number] AND SCREENNegativeUniversity Hospitals Beachwood Medical CenterComment on above:Performed By: #### TNS #### [facility] [address] [place] [address] Dr. Edward GillPAP ACOG PANEL 2: 30 to 65on 02-21-2022..NormalThe [facility] HospitalComment on above:Result Comment: Performed at: WBPerformed By: #### [id number] ####[facility] [address] [place], [place] [address]DrLazara Koenig Gdln ACOG Unvuhmt47-52GukouhDbqSumma Health [facility] Campus on above:Performed By: #### [id number] ####[facility] [address]fre[address] [place], [place] [address]Dr. Edward GillDIAGNOSIS:CommentSelect Medical [facility]Health Rehabilitation Hospital on above:Result Comment: NEGATIVE FOR INTRAEPITHELIAL LESION OR MALIGNANCY. Performed at: WBPerformed By: #### [id number] ####[facility] [address] [place], [place] [address]Dr. Edward GillHPV AptimaNegativeNormal NegativeThe [facility] on above:Result Comment: This nucleic acid amplification test detects fourteen high-risk HPV types (16,18,31,33,35,39,45,51,52,56,58,59,66,68) without differentiation. Performed at: =GPerformed By: #### [id number] ####[facility] [address] [place], [place] [address]Dr. Edward GillMethodology:CommentSelect Medical [facility]Health Rehabilitation Hospital on above:Result Comment: This liquid based ThinPrep(R) pap test was screened with the use of an image guided system. Performed at: WBPerformed By: #### [id number] ####[facility] [address] [place], [place] [address]Dr. Edward GillNote:CommentSelect Medical [facility]Health Rehabilitation Hospital on above:Result Comment: The Pap smear is a screening test designed to aid in the detection of premalignant and malignant conditions of the uterine cervix. It is not a diagnostic procedure and should not be used as the sole means of detecting cervical cancer. Both false-positive and false-negative reports do occur. . Performed at: WBPerformed By: #### [id number] ####[facility] [address] [place], [place] [address]Dr. Edward ChangPerformed by:CommentSelect Medical [facility]Health Rehabilitation Hospital on above:Result Comment: Zenaida Diop, Regional Account Executive (ASCP) Performed at: WBPerformed By: #### [id number] ####[facility] [address] [place], [place] [address]Dr. Edward GillSpecimen adequacy:Comment NormalMemorial Health System Selby General HospitalComment on above:Result Comment: Satisfactory for evaluation. No endocervical component is identified. Performed at: WBPerformed By: #### [id number] ####[facility] [address] [place], [place] [address]Dr. Edward GillCHLAMYDIA/GONOCOCCUS LELO (SWAB/URINE/PAPon 28-38-1639Equqpbbuc trachomatis, NAANegativeNormalNegativeMemorial Health System Selby General HospitalComment on above:Performed By: #### CT/NGNA ####[facility] [address]eur[address] [place], [place] [address]Dr. Edward Gill Neisseria gonorrhoeae, NAANegativeNormalNegativeMemorial Health System Selby General HospitalComment on above:Performed By: #### CT/NGNA ####[facility] [address] [place], [place] [address]Dr. Edward GillVAGINITIS/VAGINOSIS DNA PROBEon [id number] speciesNegativeNormalNegativeMemorial Health System Selby General HospitalComment on above:Performed By: #### VAGINT ####[facility] [address] [place], [place] [address]Dr. Edward GillGardnerella vaginalisNegativeNormal NegativeThe [facility] HospitalComment on above:Performed By: #### VAGINT ####[facility] [address] [place], [place] [address]Dr. Edward GillTrichomonas vaginalisNegativeNormalNegativeMemorial Health System [facility] Hospital Comment on above:Performed By: #### VAGINT ####[facility] [address] [place], [place] [address]Dr. Edward GillTSHon 52-69-2803IFG8.536 uIU/mLNormal0.358-3.740The [facility] HospitalComment on above:Performed By: #### TSH ####[facility] [address] [place], [place] [address]Rc. Edward JairoGLUCOSE - 1HRon 44-63-9142Gpezyzk [Mass/Vol]160 mg/dLCritically high 74-106[facility] HospitalComment on above:Performed By: #### GLU1HR ####[facility] [address] [id number] Edward SepulvedaHon 97-01-3493KFF0.899 uIU/mLNormal0.358-3.740[facility] Comment on above:Performed By: #### HIV12 #### [facility] [address] [address] [address] Edward Garcia, [facility] 04-80-8166Utuytzxtej byUltMcKenzie-Willamette Medical CenterComment on above:Performed By: #### AAFPM #### [address] [address] Manager Research Development: Pancho Cano MD [address] [address] Manager Research Development: Yosvany ArriagaMcCullough-Hyde Memorial HospitalComment on above:Result Comment: Results for Estimated Due Date: 05 13 22Performed By: #### AAFPM #### [address] [address] Manager Research Development: Pancho Cano MD [facility] [address] [place] [address] Manager Research Development: Danelle ArriagaBucyrus Community HospitalComment on above:Performed By: #### AAFPM #### [address] [address] Manager Research Development: Pancho Cano MD [facility] [address] [place], [place] [id number] Manager Research Development: Zhang Bledsoe MDGestat Age (exact)15 wks, 2 daysNoSumma HealthComment on above:Performed By: #### AAFPM #### [facility] [address] [place] [address] Manager Research Development: Pancho Cano MD [address] [phone] Manager Research Development: Zhang Bledsoe MDIns Req Matern DiabBluffton HospitalComment on above:Performed By: #### AAFPM #### [facility] [address] [address] Manager Research Development: Pancho Cano MD [address] [address] Manager Research Development: Zhang Bledsoe MDInterpretationScreen [facility] Methodist HospitalComment on above:Result Comment: (NOTE) INTERPRETATION: SCREEN NEGATIVE for open spina bifida Neural Tube Defects (NTD) Negative Pre-Test Post-Test Cutoff Neural Tube Defects Risks 1:1030 1:2690 1:250 Comments: The risk of an open neural tube defect is less than the screening cut-off. This test was developed and its performance characteristics determined by [employer]. It has not been cleared or approved by the [place] Food and Drug Administration. This test was performed in a CLIA certified laboratory and is intended for clinical purposes.Performed By: #### AAFPM #### [facility] [address] [address] Manager Research Development: Pancho Cano MD [address] [phone] Manager Research Development: Osmar Arriagaternal Age at Del36.6 yrAultman HospitalComment on above:Performed By: #### AAFPM #### [facility] [address] [address] Manager Research Development: Pancho Cano MD [address] [phone] Manager Research Development: Osmar Arriagalucile [facility] RaceNonblackNoSumma HealthComment on above:Performed By: #### AAFPM #### [facility] [address] [place] [address] Manager Research Development: Pancho Cano MD [facility] [address] [place] [address] Manager Research Development: Osmar Arriagalucile [facility] Khrkux998.0 lbs.NormalMiami Valley HospitalComment on above:Performed By: #### AAFPM #### [facility] [address] [place] [address] Manager Research Development: Pancho Cano MD [facility] [address] [place] [address] Manager Research Development: BAKARI Arriaga for AFP1.52NormGlenbeigh HospitalComment on above:Performed By: #### AAFPM #### [facility] [address] [place] [address] Manager Research Development: Pancho Cano MD [address] [address] Manager Research Development: Zhang Bledsoe MDNumber of FetusesSingletonNoSumma HealthComment on above:Performed By: #### AAFPM #### [facility] [address] [address] Manager Research Development: Pancho Cano MD [facility] [address] [place] [address] Manager Research Development: Smith Arriaga's AFP35 ng/mLNormalMiami Valley HospitalComment on above:Performed By: #### AAFPM #### [facility] [address] [place] [address] Manager Research Development: Pancho Cano MD [facility] [address] [place] [address] Manager Research Development: NIKITA ArriagaCleveland Clinic Mer[facility] Comment on above:Performed By: #### AAFPM #### [address] [address] Manager Research Development: Pancho Cano MD [address] [phone] Manager Research Development: Azucena ArriagaAvita Health System Ontario HospitalComment on above:Result Comment: (NOTE) Initial sample Performed by [facility], [address] [place] [phone] www.[facility], Yayo Moncada MD, PHD, Lab. DirectorPerformed By: #### AAFPM #### [address] [address] Manager Research Development: Pancho Cano MD [address] [phone] Manager Research Development: Zhang Bledsoe MDAJohns Hopkins Hospital [id number] [place], [place] [address]Comment on above:Performed By: #### AAFPM #### [address] [address] Manager Research Development: Pancho Cano MD [address] [phone] Manager Research Development: SHIVA ArriagaMadison Health Comment on above:Performed By: #### AAFPM #### [facility] [address] [address] Manager Research Development: Pancho Cano MD [address] [phone] Manager Research Development: Zhang Bledsoe [facility] Comment on above:Performed By: #### AAFPM #### [address] [address] Manager Research Development: Pancho Cano MD [facility] [address] [place] [address] Manager Research Development: SHIVA Arriagaonojeanine EggINFORMATION NOT PROVIDEDAultman HospitalComment on above:Performed By: #### AAFPM #### [facility] [address] [place] [address] Manager Research Development: Pancho Cano MD [facility] [address] [place] [address] Manager Research Development: Zhang Bledsoe MDEstimhonorhealth deer valley medical center Due [id number] HospitalComment on above:Performed By: #### AAFPM #### [facility] [address] [address] Manager Research Development: Pancho Cano MD [facility] [address] [place] [address] Manager Research Development: Zhang Bledsoe MDMartha'S Vineyard Hospital HistoryNegativeAultman HospitalComment on above:Performed By: #### AAFPM #### [facility] [address] [place] [address] Manager Research Development: Pancho Cano MD [facility] [address] [place] [address] Manager Research Development: Zhang Bledsoe MDIn Vitro FertalizatINFORMATION NOT PROVIDEDMercy Health Willard HospitalComment on above:Performed By: #### AAFPM #### [facility] [address] [place] [address] Manager Research Development: Pancho Cano MD [facility] [address] [place] [address] Manager Research Development: Zhang Bledsoe MDHARNEY DISTRICT HOSPITAL [id number] HospitalComment on above:Performed By: #### AAFPM #### [facility] [address] [place] [address] Manager Research Development: Pancho Cano MD [facility] [address] [place] [address] Manager Research Development: Zhang Bledsoe MDMaternal [id number] HospitalComment on above:Performed By: #### AAFPM #### [facility] [address] [place] [address] Manager Research Development: Pancho Cano MD [facility] [address] [place] [address] Manager Research Development: Osmar Arriagaternal Bmxaok246LyljadXcwedAultman HospitalComment on above:Performed By: #### AAFPM #### [facility] [address] [place] [address] Manager Research Development: Pancho Cano MD [facility] [address] [place] [address] Manager Research Development: BAKARI Arriagaonochorionic TwinsOhioHealth Grady Memorial HospitalComment on above:Performed By: #### AAFPM #### [facility] [address] [place] [address] Manager Research Development: Pancho Cano MD [facility] [address] [place] [address] Manager Research Development: Zhang Bledsoe [facility] HOSPITALatient Weight UnitsLBSAultman HospitalComment on above:Performed By: #### AAFPM #### [facility] [address] [place] [address] Manager Research Development: Pancho Cano MD [facility] [address] [place] [address] Manager Research Development: LUIS Arriagaace (Maternal)WHITEAultman HospitalComment on above:Performed By: #### AAFPM #### [facility] [address] [place] [address] Manager Research Development: Pancho Cano MD [facility] [address] [place] [address] Manager Research Development: Jay Arriaga SpecimenINFORMATION NOT Curry General HospitalComment on above:Performed By: #### AAFPM #### [facility] [address] [place] [address] Manager Research Development: Pancho Cano MD [facility] [address] [place] [address] Manager Research Development: Zhang Bledsoe MDValproic/CarbamazepINFORMATION NOT Curry General HospitalComment on above:Performed By: #### AAFPM #### [facility] [address] [address] Manager Research Development: Pancho Cano MD [facility] [address] [place] [address] Manager Research Development: JIMENEZ Arriaga Single Marker Scrn, Maternal, Serumon 03-30-8450GlmFagdrzCoatesville Veterans Affairs Medical CenterCarrier Study Non-ProMedicaon 16-06-3944SyzOkavjy[address] [place] [address] MISCELLANEOUS TESTINGon 46-95-9026Wqik Out ReportFWD TO [facility] [address] [place], [place] [address]Test NameNATERA WINCHESTER MEDICAL CENTERMiscellaneouson 86-08-3296Ptuq Out ReportFWD TO [facility] [address] [place], [place] [address]Comment on above:Performed By: #### CMIS #### [facility] [address] [place] [address] Manager Research Development: Pancho Cano MDTest Memorial Health SystemComment on above:Performed By: #### CMIS #### [facility] [address] [place] [address] Manager Research Development: RAJ Choi B SURFACE ANTIGEN SCREENon 66-95-6064NUxKx ScreenNegativeNormalNegativeThe [facility] on above:Performed By: #### HIV12 #### [facility] [address] [place] [address] Dr. Edward FranklinPATITIS C VIRUS AB W/ REFLEX QUANTon 98-65-5207GYC AB<0.1Normal 0.0-0.9[facility] on above:Performed By: #### HCVPCRR ####[facility] [address] [address]DrLazara GillInterpretation:CommentNormalThe [facility] on above: Result Comment: Negative Not infected with HCV, unless recent infection is suspected or other evidence exists to indicate HCV infection.Performed By: #### HCVPCRR ####[facility] [address] [address]DrLazara GillHIV 1 AND 2 WITH REFLEXon 47-50-3202ONY Screen 4th Generation wRfx Non-ReactiveNormalNon ReactiveThe [facility] on above:Result Comment: HIV Negative HIV-1/HIV-2 antibodies and HIV-1 p24 antigen were NOT detected. There is no laboratory evidence of HIV infection.Performed By: #### HIV12 #### [facility] [address] [place] [address] Dr. Edward GillRPJeanine QUANTon 02-24-5310Jddev Plasma Reagin, QuantNon-Reactive NormalNonRea<1:1[facility] on above:Result Comment: Please Note: This test does not meet current guidelines for screening and diagnosis of syphilis. This test is intended for following treatment response in patients being treated for syphilis infection. To screen for syphilis infection, a reflex cascade that includes both RPR and a treponema-specific assay should be utilized, such as Treponema pallidum (Syphilis) Screening [place] ([id number]) or Rapid Plasma Reagin (RPR) Test With Reflex to Quantitative RPR and Confirmatory Treponema pallidum Antibodies (338279).Performed By: #### RPRQ ####[facility] [address] [address]Dr. Edward OspinaBELLA AB IGG on 32-21-3434Qfosgix Antibodies, IgG1.02 indexNormalImmune >0.99The [facility] HospitalComment on above:Result Comment: Non-immune <0.90 Equivocal 0.90 - 0.99 Immune >0.99Performed By: #### RUBIGG ####[facility] [address] [address]Dr. Edward AlfaroC AUTO DIFFon 17-23-3244ZDKV # 0.0 103/ulNormal0.0-0.1The [facility] HospitalComment on above:Performed By: #### HIV12 #### [facility] [address] [place] [address] Dr. Edward GillBasophils/100 WBC (Bld)0.3 %Normal0.2-2.0[facility] Comment on above:Performed By: #### HIV12 #### [facility] [address] [place] [address] Dr. Edward Traore #0.1 103/ulNormal0.0-0.7The [facility] HospitalComment on above: Performed By: #### HIV12 #### [facility] [address] [place] [address] Dr. Edward Calhounosinophils/100 WBC (Bld)0.6 %Critically low0.9-7.0The [facility] HospitalComment on above:Performed By: #### HIV12 #### [facility] [address] [place] [address] Dr. Edward Calhounrythrocyte distribution width (RBC) [Ratio]14.1 %Ueyrnx06.0-15.0 The [facility] HospitalComment on above:Performed By: #### HIV12 #### [facility] [address] [place] [address] Dr. Edward GillHematocrit (Bld) [Volume fraction]36.2 %Ftsymx79.0-48.0The [facility] HospitalComment on above:Performed By: #### HIV12 #### [facility] [address] [place] [address] Dr. Edward GillHemoglobin (Bld) [Mass/Vol]12.5 g/gWYmforf26.0-16.0The [facility] HospitalComment on above:Performed By: #### HIV12 #### [facility] [address] [place] [address] Dr. Edward Ray #0.05 10e3/ulCritically high0.00-0.03The [facility] Comment on above:Performed By: #### HIV12 #### [facility] [address] [place] [address] Dr. Edward Ray %0.4 %Normal0.0-0.5The [facility] HospitalComment on above: Performed By: #### HIV12 #### [facility] [address] [place] [address] Dr. Edward Velásquez #2.7 103/ulNormal1.2-3.8The [facility] HospitalComment on above:Performed By: #### HIV12 #### [facility] [address] [place] [address] Dr. Edward Alvarezhocytes/100 WBC (Bld)23.2 %Wdrnxd08.5-60.0The [facility] HospitalComment on above:Performed By: #### HIV12 #### [facility] [address] [place] [address] Dr. Edward SimmonsUAL DIFF REQNONormalThe [facility] HospitalComment on above: Performed By: #### HIV12 #### [facility] [address] [place] [address] Dr. Edward June (RBC) [Entitic mass]30.6 diKvodge73.7-34.0The [facility] HospitalComment on above:Performed By: #### HIV12 #### [facility] [address] [place] [address] Dr. Edward June (RBC) [Mass/Vol]34.5 g/yGLucxbd23.9-35.2The [facility]ush HospitalComment on above:Performed By: #### HIV12 #### [facility] [address] [address] [address] Edward JuneV (RBC) [Entitic vol]88.7 tOXkrmca59.0-99.0The [facility] HospitalComment on above:Performed By: #### HIV12 #### [facility] [address] [place] [address] Dr. Edward Rosas #0.7 103/ulNormal0.3-0.8The [facility] HospitalComment on above:Performed By: #### HIV12 #### [facility] [address] [place] [address] Dr. Edward Ignacioocytes/100 WBC (Bld)5.8 %Normal1.7-12.0The [facility] Comment on above:Performed By: #### HIV12 #### [facility] [address] [place] [address] Dr. Edward Guevara #8.0 103/ulCritically high1.4-6.5The [facility] Comment on above:Performed By: #### HIV12 #### [facility] [address] [place] [address] Dr. Edward Moralesutrophils/100 WBC (Bld)69.7 %Edqzwd78.0-75.0The [facility] HospitalComment on above:Performed By: #### HIV12 #### [facility] [address] [place] [address] Dr. Edward Serranolet mean volume (Bld) [Entitic vol]9.3 fLCritically low 9.5-13.5ThBarberton Citizens HospitalComment on above:Performed By: #### HIV12 #### [facility] [address] [place] [address] Dr. Edward GillPLT338 103/fpYediks738-481Vru [facility] HospitalComment on above: Performed By: #### HIV12 #### [facility] [address] [place] [address] Dr. Edward GillRBC4.08 106/ulCritically low4.20-5.40[facility] on above:Performed By: #### HIV12 #### [facility] [address] [address] [address] Edward SaulBC11.4 103/ulCritically high4.0-11.0The [facility] Hospitalment on above:Performed By: #### HIV12 #### [facility] [address] [place] [address] Dr. Edward GillCULTJEYSON URINEon 54-55-3792VDGGRIG URINECulture Observations: LIGHT GROWTH OF MIXED GENITAL MARTHA. NO POTENTIAL PATHOGENS SEEN.NormalThe [facility] Hamilton Hospitalment on above:Performed By: #### URCX #### [facility] [address] [place] [address] Dr. Edward GillGLYCOHEMOGLOBIN A1Con 72-48-7197WZE RECOMMENDATIONSEE BELOWNormal The [facility] HospitalComforest health medical center on above:Result Comment: ADA RECOMMENDED LIMIT 4.0 - 6.0 ADA THERAPEUTIC TARGET < 7.0 ACTION SUGGESTED > 7.0Performed By: #### A1C #### [facility] [address] [place] [address] Dr. Edward GillGlucose [Mass/Vol]117 mg/dLNormalThe [facility] HospitalComforest health medical center on above:Performed By: #### A1C #### [facility] [address] [place] [address] Dr. Edward GillHbA1c (Bld) [Mass fraction]5.7 %Normal4.5-6.2[facility] on above:Performed By: #### A1C #### [facility] [address] [place] [address] Dr. Edward Nair BOX TEST PT SEND OUTon [id number] TO REF LAB10/25/2021 NormalMagruder Memorial Hospital on above:Performed By: #### HIV12 #### [facility] [address] [place] [address] Dr. Edward GillTSHodru 47-18-3334GGS1.700 uIU/mLNormal0.358-3.740The [facility] HospitalComment on above:Performed By: #### TSH ####[facility] [address] [id number] GillTYPE AND SCREEN on 37-52-2330ZBWF AND SCREENNegativeSelect Medical [facility] on above: Performed By: #### TNS ####[facility] [address] [address]Dr.Edward GillUS PREG TVon 75-75-7244YL PREG TV EXAMINATION: US PREG TV HISTORY: [...] Electronically authenticated by: HUMERA KIM Date: 2021-09-23 10:27[facility] Medical CenterPREG QUANT HCGon 53-18-1745RDT SPOFS6381 mIU/mLNormalMemorial Health System Selby General HospitalComforest health medical center on above:Performed By: #### HIV12 #### [facility] [address] [address] [address] Edward GillHCG RANGESEE BELOWUniversity Hospitals Beachwood Medical CenterComment on above: Result Comment: 5-50 0-1 WEEK 40-300 1-2 WEEKS 100-1,000 2-3 WEEKS 500-6,000 3-4 WEEKS 5,000-200,000 1-2 MONTHS 10,000-100,000 2-3 MONTHS 3,000-50,000 2ND TRIMESTER 1,000-50,000 3RD TRIMESTERPerformed By: #### HIV12 #### [facility] [address] [address] [address] Edward GillCHEMISTRYOrdered By: SYSTEM SYSTEM on 55-40-4934Ooyvo gap [Moles/Vol]15 mmol/LNormal6 - 16 mEq/LFTMC RemisolCalcium [Mass/Vol]9.5 mg/dL Normal8.9 - 11.1 mg/dLFT RemisolChloride [Moles/Vol]102 mmol/ALwwxto695 - 111 mmol/LFTMC RemisolCO2 [Moles/Vol]22 mmol/TLgioie13 - 31 mmol/LFTMC Remisol Creatinine [Mass/Vol]0.9 mg/dLNormal0.5 - 1.3 mg/dLFT RemisolGFR/1.73 sq M.predicted among blacks MDRD (S/P/Bld) [Vol rate/Area]mL/min/1.73 x5Hbcixo >=59mL/min/1.73 m2[facility] Chem SGFR/1.73 sq M.predicted among non-blacks MDRD (S/P/Bld) [Vol rate/Area]mL/min/1.73 i8Llouxs>=59mL/min/1.73 m2[facility] Chem S Glucose [Mass/Vol]85 mg/wPNbkexi32 - 199 mg/dLFT RemisolPotassium [Moles/Vol] 3.9 mmol/LNormal3.5 - 5.3 mmol/LFTMC RemisolSodium [Moles/Vol]135 mmol/LNormal 135 - 145 mmol/LFTMC RemisolUrea nitrogen [Mass/Vol]6 mg/dLNormal5 - 21 mg/dL [facility] RemisolUrea nitrogen/Creatinine [Mass ratio]7 mg/mgLow10 - 20FT Remisol HEMATOLOGYOrdered By: SYSTEM SYSTEM on 12-23-8035Porliitco/100 WBC (Bld)0.5 % Normal0.0 - 2.0 %[facility] HemeAutoSSBasophils/Leukocytes Auto (Bld) [Pure # fraction]0.0 E9/LNormal0.0 - 0.2 E9/LFTMC HemeAutoSSEosinophils/100 WBC (Bld)0.6 %Normal0.0 - 8.0 %[facility] HemeAutoSSEosinophils/Leukocytes Auto (Bld) [Pure # fraction]0.1 E9/LNormal0.0 - 0.5 E9/LFTMC HemeAutoSSLymphocytes/100 WBC (Bld) 36.8 %Dndmvs59.0 - 50.0 %[facility] HemeAutoSSLymphocytes/Leukocytes Auto (Bld) [Pure # fraction]2.9 E9/LNormal1.0 - 4.0 E9/LFTMC HemeAutoSSMonocytes/100 WBC (Bld)8.7 %Normal4.0 - 14.0 %[facility] HemeAutoSSMonocytes/Leukocytes Auto (Bld) [Pure # fraction]0.7 E9/LNormal0.2 - 1.0 E9/LFTMC HemeAutoSSNeutrophils/100 WBC (Bld) 53.4 %Azwpmv90.0 - 75.0 %[facility] HemeAutoSSNeutrophils/Leukocytes Auto (Bld) [Pure # fraction]4.2 E9/LNormal2.0 - 7.5 E9/LFTMC HemeAutoSSHEMATOLOGYOrdered By: Isha Yates on 34-06-8626Kojdaneemsv distribution width (RBC) [Ratio]14.6 %High10.9 - 14.2 %[facility] HemeAutoSSHematocrit (Bld) [Volume fraction]36.4 %Normal 34.0 - 46.0 %[facility] HemeAutoSSHemoglobin (Bld) [Mass/Vol]12.6 g/bZToqneg69.0 - 16.0 gm/dLFTMC HemeAutoSSMCH (RBC) [Entitic mass]29.9 zhWfhhdt51.0 - 34.0 pgFTMC HemeAutoSSMCHC (RBC) [Mass/Vol]34.6 g/xUBcuebr94.4 - 36.0 gm/dLFTMC HemeAutoSS MCV (RBC) [Entitic vol]86.6 sMSodgza04.0 - 100.0 fLFTMC HemeAutoSSPlatelet mean volume (Bld) [Entitic vol]8.2 fLNormal6.4 - 10.8 fLFTMC HemeAutoSSPlatelets (Bld) [#/Vol]367.0 E9/FAhdxfq926.0 - 500.0 E9/LFTMC HemeAutoSSRBC (Bld) [#/Vol] 4.2 E12/LLow4.3 - 5.9 E12/LFTMC HemeAutoSSWBC corrected for nucl RBC Auto (Bld) [#/Vol]7.9 E9/LNormal4.0 - 11.0 E9/LFTMC HemeAutoSSPREG QUANT HCGon 08-29-2021 HCG MRCLL611 mIU/mLNormalMemorial Health System Selby General HospitalComment on above:Performed By: #### PREGQNT ####[facility] [address] [address]Dr. Edward Lim [facility] TriPoint Medical CenterComment on above:Result Comment: 5-50 0-1 WEEK 40-300 1-2 WEEKS 100-1,000 2-3 WEEKS 500- 6,000 3-4 WEEKS 5,000-200,000 1-2 MONTHS 10,000-100,000 2-3 MONTHS 3,000-50,000 2ND TRIMESTER 1,000-50,000 3RD TRIMESTERPerformed By: #### PREGQNT ####[facility] [address] [place], [place] [address]Dr. Edward GillPREWily QUANT HCGon 27-79-4701PSF QUANT99 mIU/mLNWayne HealthCare Main CampusComment on above:Performed By: #### HIV12 #### [facility] [address] [address] [address] Edward Lim [facility] Tri[facility] Medical CenterComforest health medical center on above: Result Comment: 5-50 0-1 WEEK 40-300 1-2 WEEKS 100-1,000 2-3 WEEKS 500-6,000 3-4 WEEKS 5,000-200,000 1-2 MONTHS 10,000-100,000 2-3 MONTHS 3,000-50,000 2ND TRIMESTER 1,000-50,000 3RD TRIMESTERPerformed By: #### HIV12 #### [facility] [address] [address] [address] Edward Cross QUANT HCGon 26-64-9599QTD QUANT37 mIU/mLNWayne HealthCare Main CampusComforest health medical center on above:Performed By: #### PREGQNT ####[facility] [address] [place], [place] [address]Dr. Edward Lim RANGESEE BELOWNormalThe Piyush HospitalComment on above:Result Comment: 5-50 0-1 WEEK 40-300 1-2 WEEKS 100-1,000 2-3 WEEKS 500-6,000 3-4 WEEKS 5,000-200,000 1-2 MONTHS 10,000-100,000 2-3 MONTHS 3,000-50,000 2ND TRIMESTER 1,000-50,000 3RD TRIMESTERPerformed By: #### PREGQNT ####[facility] [address] [place] [address]DrLazara Leon ChangCHEMISTRYOrdered By: SYSTEM SYSTEM on 31-26-4320Esbmkmm [Mass/Vol]4.5 g/dLNormal3.3 - 5.0 gm/dLFTMC Remisol Albumin/Globulin [Mass ratio]1.2 {ratio}Normal1.1 - 2.2[facility] RemisolALP [Catalytic activity/Vol]53 [iU]/nEkqqoz37 - 98 Int._Unit/LFTMC RemisolALT No additional P-5'-P [Catalytic activity/Vol]24 [iU]/dNormal6 - 46 Int._Unit/LFTMC RemisolAnion gap [Moles/Vol]13 mmol/LNormal6 - 16 mEq/LFTMC RemisolAST [Catalytic activity/Vol]20 [iU]/dNormal5 - 43 Int._Unit/LFTMC RemisolBilirubin [Mass/Vol]0.6 mg/dLNormal0.0 - 1.1 mg/dLFTMC RemisolCalcium [Mass/Vol]9.4 mg/dL Normal8.9 - 11.1 mg/dLFTMC RemisolChloride [Moles/Vol]97 mmol/LVic388 - 111 mmol/LFTMC RemisolCO2 [Moles/Vol]24 mmol/GPhelsn52 - 31 mmol/LFTMC Remisol Creatinine [Mass/Vol]0.8 mg/dLNormal0.5 - 1.3 mg/dLFTMC RemisolGFR/1.73 sq M.predicted among blacks MDRD (S/P/Bld) [Vol rate/Area]mL/min/1.73 x1Kneffe >=59mL/min/1.73 m2FT Chem SGFR/1.73 sq M.predicted among non-blacks MDRD (S/P/Bld) [Vol rate/Area]mL/min/1.73 b2Fxzweo>=59mL/min/1.73 m2[facility] Chem S Globulin (S) [Mass/Vol]3.7 g/dLNormal1.4 - 4.0 gm/dLFTMC RemisolGlucose [Mass/Vol]74 mg/qAUyimfy22 - 199 mg/dLNORTHWEST SUR[facility] [place] RemisolMagnesium [Mass/Vol]2.0 mg/dL Normal1.3 - 2.4 mg/dLFTMC RemisolPotassium [Moles/Vol]3.5 mmol/LNormal3.5 - 5.3 mmol/LFTMC RemisolProtein [Mass/Vol]8.2 g/dLHigh6.0 - 7.8 gm/dLFT Remisol Sodium [Moles/Vol]130 mmol/QOrt765 - 145 mmol/LFTMC RemisolTSH Qn4.56 m[IU]/L Normal0.34 - 5.60 mcIU/mLNORTHWEST SUR[facility] [place] RemisolUrea nitrogen [Mass/Vol]7 mg/dLNormal5 - 21 mg/dLFTMC RemisolUrea nitrogen/Creatinine [Mass ratio]9 mg/mgLow10 - 20FTMC RemisolHEMATOLOGYOrdered By: SYSTEM SYSTEM on 31-50-0465Dfcixvbpg/100 WBC (Bld) 0.3 %Normal0.0 - 2.0 %[facility] HemeAutoSSBasophils/Leukocytes Auto (Bld) [Pure # fraction]0.0 E9/LNormal0.0 - 0.2 E9/LFTMC HemeAutoSSEosinophils/100 WBC (Bld)0.5 %Normal0.0 - 8.0 %[facility] HemeAutoSSEosinophils/Leukocytes Auto (Bld) [Pure # fraction]0.0 E9/LNormal0.0 - 0.5 E9/LFTMC HemeAutoSSLymphocytes/100 WBC (Bld) 35.9 %Umjpii42.0 - 50.0 %[facility] HemeAutoSSLymphocytes/Leukocytes Auto (Bld) [Pure # fraction]3.2 E9/LNormal1.0 - 4.0 E9/LFTMC HemeAutoSSMonocytes/100 WBC (Bld)8.8 %Normal4.0 - 14.0 %[facility] HemeAutoSSMonocytes/Leukocytes Auto (Bld) [Pure # fraction]0.8 E9/LNormal0.2 - 1.0 E9/LFTMC HemeAutoSSNeutrophils/100 WBC (Bld) 54.5 %Fcuyke20.0 - 75.0 %[facility] HemeAutoSSNeutrophils/Leukocytes Auto (Bld) [Pure # fraction]4.8 E9/LNormal2.0 - 7.5 E9/LFTMC HemeAutoSSHEMATOLOGYOrdered By: Trena Castro on 98-41-9710Yfleuqrctvw distribution width (RBC) [Ratio]14.1 % Qeyigj59.9 - 14.2 %[facility] HemeAutoSSHematocrit (Bld) [Volume fraction]38.5 %Normal 34.0 - 46.0 %[facility] HemeAutoSSHemoglobin (Bld) [Mass/Vol]13.1 g/kDZhfihb01.0 - 16.0 gm/dLFTMC HemeAutoSSMCH (RBC) [Entitic mass]29.4 iqRrthhf11.0 - 34.0 pgFTMC HemeAutoSSMCHC (RBC) [Mass/Vol]34.1 g/nTUqwdeq13.4 - 36.0 gm/dLFTMC HemeAutoSS MCV (RBC) [Entitic vol]86.0 lGQwenhp97.0 - 100.0 fLFTMC HemeAutoSSPlatelet mean volume (Bld) [Entitic vol]8.3 fLNormal6.4 - 10.8 fLFTMC HemeAutoSSPlatelets (Bld) [#/Vol]334.0 E9/VDpiavy210.0 - 500.0 E9/LFTMC HemeAutoSSRBC (Bld) [#/Vol] 4.5 E12/LNormal4.3 - 5.9 E12/LFTMC HemeAutoSSWBC corrected for nucl RBC Auto (Bld) [#/Vol]8.9 E9/LNormal4.0 - 11.0 E9/LFTMC HemeAutoSSOB/REFRIGERATION PERSON - Office Visiton [phone]/REFRIGERATION PERSON - Office VisitChief ComplaintComplains of: heavy bleeding 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, Rukhsanacecily Salomon, ROSE History of Present IllnessSanna [...] stroke 07/2017 PSH as above POB- 2007 [id number] 17week loss subchorionic h goariwcsd4614 39weeks bleeding at 5weeks for 2 weeks diet 6459-1220 calories exercise none 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 Review [...] History History of Oral Surgery Tooth Extraction Robertson Tooth Family History No pertinent family history Family history of cerebrovascular accident (CVA) (V17.1) (Z82.3) Family history of diabetes mellitus (V18.0) (Z83.3) Family history of cerebrovascular accident (CVA) (V17.1) (Z82.3) Family history of cerebrovascular accident (CVA) (V17.1) (Z82.3) Allergies No Known Drug Allergies Recorded By: Susie Salomon; 11/08/2017 4:19:42 PM Current Meds Ciprofloxacin HCl - 500 MG Oral Tablet;Ther apy: 44Ckt2305 to Recorded Dispense: 0 Days ; #: Sufficient Tablet; Refill: 0; BUBBA = N; Record; Last Updated By: Susie Salomon; 11/08/2017 4:19:42 PM Plavix 75 MG Oral Tablet;Therapy: 63Tir2266 to Recorded Dispense: 0 Days ; #: Sufficient Tablet; Refill: 0; BUBBA = N; Record; Last Updated By: Susie Salomon; 11/08/2017 4:19:42 PM Provera 10 MG Oral Tablet;Therapy: 23Czw4302 to Recorded Dispense: 0 Days ; #: Sufficient Tablet; Refill: 0; BUBBA = N; Record; Last Updated By: Susie Salomon; 11/08/2017 4:19:42 PM Vitals Vital Signs Recorded: 15Qau7089 04:63AHZkfwrqbv789Rtetprdnt04Mpunwu1 ft 6 etPatspn967 lb BMI Tktrqawvcx44.57BSA Calculated1.8WIL75Wni5306Rtsi Scale6-7 Physical ExamConstitutional: Alert and in no acute distress. Well developed, well nourished. Head and Face: Head and face: Normal. Psychiatric: Alert and oriented x 3. Affect normal to patient baseline. Mood: Appropriate. Diagnoses/Problems Anemia (285.9) (D64.9) Asthma (493.90) (J45.909) Depression with anxiety (300.4) (F41.8) History of Oral Surgery Tooth Extraction Robertson Tooth No pertinent family history : Mother [...] GIDeclines STI testing todayWeight gain, offered a legal specialist consult and she declined. Encouraged exercise. Signatures Electronically signed by : RICHARD Ulrich; Nov 12 2017 8:46PM EST (Author)NormalUH TouchworksAntiphospholipid Abs IgG/IgMon 21-81-7693Zctbxsakivsldacn Ab-ClZ367 GPLCritically high0-14[facility] HospitalComment on above:Result Comment: INTERPRETIVE INFORMATION: High- Specificity Antiphospholipid Antibody,IgG14 GPL or less......Nfxvngfe87 26 GPL.........Indeterminate Suggest repeat testing in 12 weeks27 GPL or greater. ..PositiveHigh-specificity antiphospholipid IgG and IgM antibodies are directedagainsta mixture of phosphatidylserine, phosphatidic acid, and beta- 2glycoprotein 1antigens. These antibodies are more specific than cardiolipin IgG andIgMantibodies in the diagnosis of antiphospholipid syndrome (APS). Antiphospholipid Ab-IgM6 MPLNormal094 Huffman StreetComment on above:Result Comment: INTERPRETIVE INFORMATION: High-Specificity Antiphospholipid Antibody,IgM14 MPL or less......Quipxyge80 37 MPL.........Indeterminate Suggest repeat testing in 12 weeks38 MPL or greater. ..PositiveHigh-specificity antiphospholipid IgG and IgM antibodies are directedagainsta mixture of phosphatidylserine, phosphatidic acid, and beta- 2glycoprotein 1antigens. These antibodies are more specific than cardiolipin IgG andIgMantibodies in the diagnosis of antiphospholipid syndrome (APS).Performed by [facility],[address] [place] [address],[place] [address] knj.[facility], Zhang Bledsoe MD - Lab. [facility] Miscellaneous test 1on 05-28-2017 Miscellaneous Test 1SEE NOTEMt. [facility] HospitalComment on above: Result Comment: [...] Additional information and recommendations for testingmay befound [email or web address]/Topics/AutoimmuneDz/ConnectiveTissueDz/i ndex.html.Performed by [facility],[address] [facility] [place] [address] hji.[facility],Zhang Bledsoe MD - Lab. DirectorCardiolipin Antibodies, IgA, IgG, IgMon 16-87-0561Fkrcyeoweru Ab IgA0 APLNormal0-11[facility] HospitalComment on above:Result Comment: INTERPRETIVE INFORMATION: Cardiolipin Antibodies, IgA0-11 APL: Ocqodind39-64 APL: In paonbijgpus71-28 APL: Low to Moderately Qmchbqis89 APL or above: High PositivePerformed by [facility],[address] [facility] TechnologyLOG[facility] [place] [address] jaa.[facility] LabsZhang MD - Lab. DirectorCardiolipin Ab IgG 111 GPLCritically high0-14[facility] HospitalComment on above:Result Comment: INTERPRETIVE INFORMATION: Anti-Cardiolipin IgG Ab0-14 GPL: Bkzhvbus69- 19 GPL: Ohjqpwaufcywk67-47 GPL: Low to Moderately Alyicuua15 GPL or above: High PositiveThe persistent presence [...] other criteria phospholipid antibody tests.Cardiolipin Ab IgM10 MPLNormal0-12[facility] HospitalComment on above:Result Comment: INTERPRETIVE INFORMATION: Anti-Cardiolipin IgM0-12 MPL: Tdvvntbl45-68 MPL: Pdplixbndbxlq65-44 MPL: Low to Moderately Vjsgztbz96 MPL or above: High PositiveThe persistent presence [...] and/orothercriteria phospholipid antibody tests.Jennifer-Simpson Virus by PCRon 11-57-7655Ennrrse Simpson Virus by PCRNot DetectedNoParkview Medical CenterComment on above:Result Comment: NOT DETECTED - A negative result does not rule out thepresence of PCR inhibitors inthe patient specimen or assayspecific nucleic acid in concentrations below the level ofdetection bythe assay.INTERPRETIVE INFORMATION: Jennifer Simpson Virus by PCRTest developed and characteristics determined by [facility]. SeeCompliance Statement A: [facility]/CSPerformed by [facility],[address] [facility] [place] [address] ccs.[facility], Zhang Bledsoe MD - Lab. DirectorEpstein Simpson Virus SourceCSFMt. [facility] HospitalOligoclonal Band Profileon 75-95-6688Mgaygwx7529 mg/fZLozdpx3415-0811EejweParkview Pueblo West HospitalAlbumin 5.2 ratioNormal0.0-9.0[facility] HospitalAlbumin, CSF20 mg/dLNormal 0-35[facility] HospitalCSF IgG Synthesis Rate<0.0Normal<=8.0[facility] HospitalCSF Oligoclonal BandsNegativeNormalNegativeParkview Pueblo West HospitalCSF Oligoclonal Bands Number0 BandsNormal0-1MMelissa Memorial HospitalGlobulin1060 mg/lNEvqqcn194-0335QqfjzParkview Pueblo West Hospital Comment on above:Result Comment: REFERENCE INTERVAL: Immunoglobulin GAccess complete set of age- and/or gender-specific reference intervalsforthis test in the [facility] Laboratory Test Directory ([facility]).IgG Index0.45 ratioNormal 0.28-0.66[facility] HospitalImmunoglobulin G CSF2.5 mg/dLNormal0.0-6.0 [facility] HospitalINR Coag RelTime (Bld)0.12 {INR}Normal0.09-0.25 [facility] HospitalInterpretationSee NoteNoParkview Medical CenterComment on above:Result Comment: Isoelectric focusing/immunofixation reveals no oligoclonal bands ineitherthe CSF orthe serum. This is considered to be a negative result foroligoclonal bands. Approximately 5 percentof patients with clinicallydefinitive multiple sclerosis will have a negative result.Performed by [facility],[address] [place] [address] djt.[facility], Zhang Bledsoe MD - Lab.DirectorMyelin Basic Protein, CSFon 30-78-9578Imdfza Basic Protein1.82 ng/mLNormal0.00-5.50[facility] HospitalComment on above:Result Comment: INTERPRETIVE INFORMATION: Myelin Basic ProteinTest developed and characteristics determined by [facility]. SeeCompliance Statement D: [facility]/CSPerformed by [facility],[address] [facility] [place] [address] sfq.[facility], Zhang Bledsoe MD - Lab. [facility] Miscellaneous test 1on 89-90-8714Ypjshcz Prompt 03841NcxzqxPygdcMt. [facility] HospitalComment on above:Result Comment: Corrected result; [place] [id number] on 05/25/2017 at 13:14 by V/AUT GAChristiana Care Health Systems Miscellaneous test 1on 10-66-7324Libfswl Agvhpy30323YpapqgZpbttMt. San Rafael HospitalComment on above:Result Comment: DS DNACSF Cell Counton 05-25-2017 CSF no diffsee [facility] DistrictComment on above:Result Comment: Differential not performed -Total Nucleated cellsCSF AppearanceClear NormalParkview Pueblo West HospitalCSF ColorColorlessMt. San Rafael HospitalCSF Tube NumberTube 4Mt. [facility] Rafael HospitalFluid Clot Evaluationsee belowMt. San Rafael HospitalComment on above:Result Comment: No Clots SeenTotal Nucleated Cells0 K/uLNormal0-8[facility] HospitalTotal Red Blood Cells0 K/uLMt. [facility] Rafael HospitalCSF Glucose on 13-93-9591CRU Ppoldrw30 mg/zCAlyqzz81-58XnilxParkview Pueblo West HospitalCSF Proteinon 04-04-9251LZQ Rmsxzyx52 mg/cNEtdhql97-09IvjawParkview Pueblo West Hospital Creatine Kinaseon 53-51-1817Mkjgsnhm kinase (CK)71 U/LNormal0-170[facility] West HospitalCulture, CSFon 22-66-2390Jfbsjwt, CSFORDER#: [id number] ORDERED BY: VERNA MONGE: CSF (Spinal Fluid) CSF COLLECTED: 05/25/17 13:25ANTIBIOTICS AT AMARILYS.: RECEIVED : 05/25/17 13:25Gram Stain Direct FINAL 05/25/17 15:30 No WBC's, No organisms seenCulture, CSF FINAL 05/28/17 09:04 No growth at 72 hours Mt. [facility] Rafael HospitalFL LUMBAR PUNCTURE DIAGon 17-34-0482WH LUMBAR PUNCTURE DIAGFL LUMBAR PUNCTURE DIAG : [...] LUMBAR PUNCTURE.Interpreted by:NIKITA Mezaigned by:Humera Covarrubias MD05/25/17inal resultNormalParkview Pueblo West Hospital Homocysteineon 94-88-3400Fpjcukpmmzne2.1 umol/LNormal0.0-15.0[facility] HospitalPartial Thromboplastin Timeon 81-48-3767xNAI63.7 dAvakwm02.6-35.4 [facility] HospitalComment on above:Result Comment: Heparin Therapeutic Range: 38.8 - 54.6 seconds.Prothrombin Timeon 20-39-5353EHF Coag RelTime (PPP)1.0 {INR}Mt. [facility] HospitalComment on above:Result Comment: Recommended INR therapeutic [...] secProthrombin time (PT) Coag time (PPP) 10.7 sNormal8.1-13.7[facility] Vital Signs Date TimeVital SignValuePerforming HtswcqtvmMkqypqez35-16-1124 09:26-0400Body mass index (BMI) [Ratio]33.98 kg/k6[employer] DO Work Phone: [facility] HospitalTyxuqzmjtm79-51-8079 09:26-0400Body .48 kgCorey Montez DO Work Phone: [facility] HospitalDcijzqjueo27-55-4025 09:26-0400Diastolic blood ttjtwqih99 mm[Hg]Wilton Salir[employer] Work Phone: [facility] HospitalDfufhwcmgr58-51-1037 09:26-0400Systolic blood mm[Hg]Wilton [employer]ir[employer]com Work Phone: [facility] HospitalKqlrrigsgz37-22-4692 13:44-0400Body alesii770.6 cmApreet Callahan MD MPH Work Phone: [phone]10-20-2025 13:44-0400Body mass index (BMI) [Ratio]33.73 kg/r3PntnoSam Callahan MD MPH Work Phone: [phone])[phone] [place], [place] [address]10-20-2025 13:44-0400Body .8 kgSam Callahan MD MPH Work Phone: [facility]10-20-2025 13:44-0400Diastolic blood drynjogi87 mm[Hg]Sam Callahan MD MPH Work Phone: [facility]10-20-2025 13:44-0400Heart rate 79 /minSam Callahan MD MPH Work Phone: 1(567)585-[address] [place], [place] [address]10-20-2025 13:44-0400 Respiratory rate18 /minSam Callahan MD MPH Work Phone: [facility]10-20-2025 13:44-0400Systolic blood sftdnalo033 mm[Hg]Sam Callahan MD MPH Work Phone: [facility]10-13-2025 10:45-0400Body mass index (BMI) [Ratio]34.12 kg/t3Ruoxv Montez DO Work Phone: [phone] [place], [place] [address]Rdxxkhfgsy66-21-5560 10:45-0400Body neumvp97.89 kgCorey Montez DO Work Phone: [phone] [place] [address]-13-2025 10:45-0400Diastolic blood tupadgjt40 mm[Hg]Wilton Montez DO Work Phone: [phone] [place], [place] [address]Hzjsfljmoa34-58-8512 10:45-0400Systolic blood tkxiooro960 mm[Hg]Wilton Montez DO Work Phone: [phone] [place], [place] [address]Doudgrhsia53-98-1811 09:30-0400Body mass index (BMI) [Ratio]34.14 kg/m0Lypkz Montez DO Work Phone: [phone] [place], [place] [address]Gelxlynbzh14-11-2658 09:30-0400Body ufjmjc45.94 kgCorey Montez DO Work Phone: [phone] [place], [place] [address]Pamjgfvurq40-60-8330 09:30-0400Diastolic blood zyqxxifr47 mm[Hg]Wilton Montez DO Work Phone: [phone])596-[address] [place], [place] [address]Usideppvth51-57-3158 09:30-0400Systolic blood ziflfnft820 mm[Hg]Wilton Montez DO Work Phone: [phone] [place] [address]-08-2025 15:14-0400Body mass index (BMI) [Ratio]33.73 kg/j3Akrpk Montez DO Work Phone: [place] [address]Vmuiaokkua90-41-9428 15:14-0400Body dsznua09.8 kg Wilton Montez DO Work Phone: [facility] HospitalSrmbiyqqsi28-85-8614 15:14-0400Diastolic blood mjuxlhfr66 mm[Hg]Wilton Herrmann DO Work Phone: noFreeman Cancer InstituteFyokcgnaln60-43-4440 15:14-0400Systolic blood euyyewbk888 mm[Hg]Wilton Herrmann DO Work Phone: noFreeman Cancer InstituteElltpmldsb22-79-6903 14:22-0400Body mass index (BMI) [Ratio]33.89 kg/f3ViutkvuwMukul Noyola MD Work Phone: [phone]09-04-2025 14:22-0400Body ybeybs56.25 kgMukul Noyola MD Work Phone: [phone] [place], [place] [address]09-04-2025 14:22-0400Diastolic blood hlkoqwju02 mm[Hg]Mukul Noyola MD Work Phone: [phone])[address] [place], [place] [address]09-04-2025 14:22-0400Systolic blood tezwtmzh408 mm[Hg]Mukul Noyola MD Work Phone: [phone] [place], [place] [address]08-26-2025 11:34-0400Body .7 cmKatherine Negrete APRN.MASTER CONTROL TECHNICIAN Work Phone: [facility]08-26-2025 11:34-0400Body mass index (BMI) [Ratio]33.57 kg/i5UpqhiKatherine Negrete APRN.MASTER CONTROL TECHNICIAN Work Phone: [facility]08-26-2025 11:34-0400Body temperature 97.59 [degF]Katherine Negrete CASING INSPECTOR.MASTER CONTROL TECHNICIAN Work Phone: [facility]08-26-2025 11:34-0400Body .4 kgKatherine Negrete APRN.MASTER CONTROL TECHNICIAN Work Phone: [facility]08-26-2025 11:34-0400Diastolic blood fbfeswii00 mm[Hg]Katherine Negrete CASING INSPECTOR.MASTER CONTROL TECHNICIAN Work Phone: [facility]08-26-2025 11:34-0400Heart rate80 /min Katherine Negrete APRN.MASTER CONTROL TECHNICIAN Work Phone: [facility]08-26-2025 11:34-0400Respiratory rate 16 /minKatherine Negrete APRN.MASTER CONTROL TECHNICIAN Work Phone: [facility]08-26-2025 11:34-8443HgB4% (BldA) [Mass fraction]98 %Katherine Negrete APRN.MASTER CONTROL TECHNICIAN Work Phone: [facility]08-26-2025 11:34-0400Systolic blood wnxvlomw621 mm[Hg]Katherine Negrete CASING INSPECTOR.MASTER CONTROL TECHNICIAN Work Phone: [facility]08-14-2025 09:28-0400Body mass index (BMI) [Ratio]33.41 kg/h2Gubsz Montez DO Work Phone: [facility] HospitalSqlutkhvsp11-17-9151 09:28-0400Body ypmglz10.89 kgCorey Montez DO Work Phone: [place] [address]Onvqoftqwz63-91-5089 09:28-0400Diastolic blood mxuzhxrs32 mm[Hg]Wilton Montez DO Work Phone: [place] [address]Wiyibtsfjs07-78-2331 09:28-0400Systolic blood adsdsbsv105 mm[Hg]Wilton Montez DO Work Phone: [facility] HospitalSucpvrmjse86-35-4322 10:53-0400Body mass index (BMI) [Ratio]33.57 kg/g4Jnqis Montez DO Work Phone: [facility] HospitalYsflwsztgz96-45-5287 10:53-0400Body ufynnf56.35 kgCorey Montez DO Work Phone: [facility] HospitalXajfcwivpr64-72-8688 10:53-0400Diastolic blood abtrsnbm69 mm[Hg]Wilton Montez DO Work Phone: [facility] HospitalRpatxhfdgt95-78-6334 10:53-0400Systolic blood rrvywsjg077 mm[Hg]Wilton Montez DO Work Phone: [place] [address]Oekgkqgoby61-92-9634 13:07-0400Body mass index (BMI) [Ratio]33.73 kg/w8QoszluLorena Enciso RN Work Phone: [phone] [place], [place] 52[address]907-23-2025 13:07-0400Body ulhxam45.8 kgLorena Enciso RN Work Phone: [phone])928-[address] [place], [place] 5224907-03-2025 09:32-0400Body mass index (BMI) [Ratio]33.81 kg/y2Rydss Montez DO Work Phone: [facility] HospitalRauypqtngd57-49-6963 09:32-0400Body flhsby42.03 kgCorey Montez DO Work Phone: [phone] [place], [place] [address]Kzvpfbdaro50-51-7929 09:32-0400Diastolic blood vwlxbqfi53 mm[Hg]Wilton Montez DO Work Phone: [facility] HospitalMoabnzqixq82-41-0481 09:32-0400Systolic blood hytmsrml671 mm[Hg]Wilton Montez DO Work Phone: [phone] [place], [place] [address]Vnskevyggj88-99-6493 14:23-0400Body mass index (BMI) [Ratio]33.46 kg/t0RtesiKatherine Negrete APRN.MASTER CONTROL TECHNICIAN Work Phone: [facility]07-01-2025 14:23-0400Body temperature 97 [degF]Katherine Negrete APRN.MASTER CONTROL TECHNICIAN Work Phone: [facility]07-01-2025 14:23-0400Body urihmt18.1 kgKatherine Negrete APRN.MASTER CONTROL TECHNICIAN Work Phone: [facility]07-01-2025 14:23-0400Diastolic blood attjgooz19 mm[Hg]Katherine Negrete APRN.MASTER CONTROL TECHNICIAN Work Phone: [facility]07-01-2025 14:23-0400Heart rate82 /min Katherine Negrete APRN.MASTER CONTROL TECHNICIAN Work Phone: [facility]07-01-2025 14:23-0400Respiratory rate 16 /minKatherine Negrete APRN.MASTER CONTROL TECHNICIAN Work Phone: [facility]07-01-2025 14:23-7655VjD1% (BldA) [Mass fraction]100 %Katherine Negrete APRN.MASTER CONTROL TECHNICIAN Work Phone: [facility]07-01-2025 14:23-0400Systolic blood qmhsdwas947 mm[Hg]Katherine Negrete APRN.MASTER CONTROL TECHNICIAN Work Phone: [facility]06-05-2025 14:10-0400Body mass index (BMI) [Ratio]33.89 kg/m2[facility]06-05-2025 14:10-0400Body ifxtto39.25 kgHannibal [facility] Hospital06-05-2025 14:10-0400Diastolic blood xkehhzop74 mm[Hg][facility]06-05-2025 14:10-0400Systolic blood nnanxodc121 mm[Hg][facility]03-27-2025 12:07-0400Body mass index (BMI) [Ratio]34.44 kg/n7Ghzvb Montez DO Work Phone: [facility] HospitalEpkfcfvgch30-81-3933 12:07-0400Body .8 kg Wilton Montez DO Work Phone: [facility] HospitalQkvzywdhet43-48-5649 12:07-0400Diastolic blood mm[Hg]Wilton Montez DO Work Phone: [facility] HospitalEkrruijlrm93-28-9294 12:07-0400Systolic blood jdelatgs885 mm[Hg]Wilton Montez DO Work Phone: [facility] HospitalHvesnnjgfl92-39-3064 08:27-0500Blood Pressure LocationScott KAPLE [phone]-IrgcyPromedica [facility]lower Hospital03-03-2025 08:27-0500Diastolic blood mm[Hg]Penelope KAPLE [phone]-LjsxsPromedica Flower Hospital03-03-2025 08:27-0500Heart rate77 /minScott KAPLE [phone]-PwnkaPromedica Flower Hospital03-03-2025 08:27-4770TgU3% (BldA) [Mass fraction]99 %Penelope CASAS [phone]-RbmbiPromedica Flower Hospital03-03-2025 08:27-0500Systolic blood bpjmivca198 mm[Hg]Penelope CASAS [phone]-EqsugPromedica Flower Hospital02-24-2025 15:21-0500Body mass index (BMI) [Ratio]34.93 kg/a8Ijuhk Montez DO Work Phone: [facility] HospitalYzbtddiqtu43-95-8110 15:21-0500Body ahezqw68.16 kgCorey Montez DO Work Phone: [facility] HospitalFfsuclodlk68-88-8061 15:21-0500Diastolic blood qyibkjaa79 mm[Hg]Wilton Montez DO Work Phone: [facility] HospitalIvblkpievj03-65-8047 15:21-0500Systolic blood amfasqzd419 mm[Hg]Wilton Montez DO Work Phone: [facility] [phone] 16:14-0500Blood Pressure LocationJESSICA BACA [phone]-TqaisFlower Hospital 06-19-2024 16:14-0500Diastolic blood rozknovx99 mm[Hg]JESSICA BACA [phone]-DyrecFlower Hospital 06-19-2024 16:14-0500Heart rate74 /minBARRONCLYN KEVEN [phone]-FrtlkFlower Hospital 06-19-2024 16:14-3057QsH4% (BldA) [Mass fraction]100 %JESSICA BACA [phone]-JmtzpFlower Hospital 06-19-2024 16:14-0500Systolic blood ehppndzv140 mm[Hg]JESSICA BACA [phone]-QzppaMer[facility] [place] 06-09-2024 13:55-0500Blood Pressure LocationScott KAPLE [phone]-BqeisPromedica [facility]02-10-2025 13:55-0500Diastolic blood ltpjjagz72 mm[Hg]Penelope KAPLE [phone]-BkubbPromedica Flower Hospital02-10-2025 13:55-0500Heart rate78 /minScott KAPLE [phone]-ObebxPromedica Flower Hospital02-10-2025 13:55-9302AqZ5% (BldA) [Mass fraction]99 %Penelope KAPLE [phone]-LbkrsPromedica Flower Hospital02-10-2025 13:55-0500Systolic blood kbegnupa309 mm[Hg]Penelope STYLESLE [phone]-NgjuqPromedica Flower Hospital02-03-2025 11:43-0500Body mass index (BMI) [Ratio]34.51 kg/b1Mamsw Montez DO Work Phone: [facility] HospitalCyutdamxkz85-63-7193 11:43-0500Body onrkpd95.98 kgCorey Montez DO Work Phone: [facility] HospitalUqrhzmqdzc59-26-7772 11:43-0500Diastolic blood oocxpkrf59 mm[Hg]Wilton Montez DO Work Phone: [facility] HospitalDppifzliwf42-88-3086 11:43-0500Systolic blood lsrczutd012 mm[Hg]Wilton Montez DO Work Phone: [facility] HospitalZwnileikok97-13-8137 13:07-0500Body zouzvo268.7 cmVramos Calix MD Work Phone: [facility]01-29-2025 13:07-0500Body mass index (BMI) [Ratio]35.02 kg/e0AixshKristofer Calix MD Work Phone: [facility]01-29-2025 13:07-0500Body temperature 97.59 [degF]Kristofer Calix MD Work Phone: [facility]01-29-2025 13:07-0500Body rtehwy51.5 kgKristofer Calix MD Work Phone: [facility]01-29-2025 13:07-0500Diastolic blood tinbyyyi18 mm[Hg]Kristofer Calix MD Work Phone: [facility]01-29-2025 13:07-0500Heart rate72 /min Kristofer Calix MD Work Phone: [facility]01-29-2025 13:07-0500Respiratory rate 16 /minKristofer Calix MD Work Phone: [facility]01-29-2025 13:07-1823NoK2% (BldA) [Mass fraction]99 %Kristofer Calix MD Work Phone: [facility]01-29-2025 13:07-0500Systolic blood gcufjvxk121 mm[Hg]Kristofer Calix MD Work Phone: [facility]01-07-2025 14:40-0500Body mass index (BMI) [Ratio]35.41 kg/k5Ogbjy Montez DO Work Phone: [facility] HospitalIfxssleemv36-50-8017 14:40-0500Body epqimn71.52 kgCorey Montez DO Work Phone: [facility] HospitalEpqjarnzna14-61-5220 14:40-0500Diastolic blood oeatkyno76 mm[Hg]Wilton Montez DO Work Phone: [facility] HospitalIuzdhimbvd34-40-9770 14:40-0500Systolic blood thlsjzex603 mm[Hg]Wilton Montez DO Work Phone: [facility] HospitalQoudwerxom31-39-4354 10:57-0500Body mass index (BMI) [Ratio]35.85 kg/m2[facility]12-06-2024 10:57-0500Body .75 [facility]NoB[facility]10-08-2024 13:29-0400Blood Pressure LocationScott KAPLE 578-5672Tjjxuf-Oooss[address] [place], [place] 6447910-08-2024 13:29-0400Body jkoqmjohmcn70.06 [degF]Penelope CASAS 186-3085Aieqqj-Bzvwz[address] [place], [place] 6447910-08-2024 13:29-0400Diastolic blood wtonpzcm27 mm[Hg]Penelope STYLESLE 701-9284Rvhhow-Humdz[address] [place], [place] 6447910-08-2024 13:29-0400Heart rate76 /minScott KAPBEN 793-6065Qhxlse-Jbcto[address] [place], [place] 6447910-08-2024 13:29-0400Respiratory rate16 /minScott KAPBEN 991-0389Majrzz-Lxtxe[address] [place], [place] 6447910-08-2024 13:29-1234FdT3% (BldA) [Mass fraction]99 %Penelope CASAS 253-8194Ysgfbq-Bsigo[address] [place], [place] 6447910-08-2024 13:29-0400Systolic blood nyydbshp261 mm[Hg]Penelope CASAS 125-3281Opfgle-Olawe[address] [place], [place] 6447910-05-2024 14:39-0400Blood Pressure LocationPreeti Gudimella 591-0056Qibazh-Vrlfs[address] [place], [place] 3735310-05-2024 14:39-0400Body oomoniczgqg63.06 [degF]Anni Gudimella 350-4304Befpwo-Nytjs[address] [place], [place] 3735310-05-2024 14:39-0400Diastolic blood ekfefcxb98 mm[Hg]Anni Gudimella 615-2484Fplsyg-IzknlAcmc Healthcare System10-05-2024 14:39-0400Heart rate98 /minPreeti Gudimella 703-6424Xfvmyw-Jsasv[address] [place], [place] 3735310-05-2024 14:39-8149JlT9% (BldA) [Mass fraction]99 %Anni Gudimella 862-4316Audisg-NdhpvMer[facility] Health [facility] Xzpx95-44-2275 14:39-0400Systolic blood lplabxzi959 mm[Hg]Anni Gudimella 729-2320Zywbcr-XrjacMercy Health St. [facility] Dbxa49-17-2041 13:45-0400Body kdsdyj267.7 cmVramos Calix MD Work Phone: [facility]09-04-2024 13:45-0400Body mass index (BMI) [Ratio]36.52 kg/l5UxxkrKristofer Calix MD Work Phone: [facility]09-04-2024 13:45-0400Body temperature 97.11 [degF]Kristofer Calix MD Work Phone: [facility]09-04-2024 13:45-0400Body .7 kgKristofer Calix MD Work Phone: [facility]09-04-2024 13:45-0400Diastolic blood rgxzawje66 mm[Hg]Kristofer Calix MD Work Phone: [facility]09-04-2024 13:45-0400Heart rate91 /min Kristofer Calix MD Work Phone: [facility]09-04-2024 13:45-0400Respiratory rate 16 /minKristofer Calix MD Work Phone: [facility]09-04-2024 13:45-4814YlT2% (BldA) [Mass fraction]100 %Kristofer Calix MD Work Phone: [facility]09-04-2024 13:45-0400Systolic blood baljodxx880 mm[Hg]Kristofer Calix MD Work Phone: [facility]08-01-2024 13:40-0400Body temperature 97.7 [degF]Chair Melbourne Work Phone: [facility]08-01-2024 13:40-0400Diastolic blood sdxlafmg66 mm[Hg]Chair Stew Work Phone: [facility]08-01-2024 13:40-0400Heart rate75 /min Chair Melbourne Work Phone: [facility]08-01-2024 13:40-0400Respiratory rate 16 /minChair Melbourne Work Phone: [facility]08-01-2024 13:40-6524YhF9% (BldA) [Mass fraction]99 %Chair Melbourne Work Phone: [facility]08-01-2024 13:40-0400Systolic blood hzyoltht875 mm[Hg]Chair Melbourne Work Phone: [facility]07-25-2024 14:00-0400Body temperature 98.2 [degF]Chair Melbourne Work Phone: [facility]07-25-2024 14:00-0400Diastolic blood oowktott15 mm[Hg]Chair Stew Work Phone: [facility]07-25-2024 14:00-0400Heart rate79 /min Chair Melbourne Work Phone: [facility]07-25-2024 14:00-0400Respiratory rate 16 /minChair Melbourne Work Phone: [facility]07-25-2024 14:00-7841QgS9% (BldA) [Mass fraction]99 %Chair Melbourne Work Phone: [facility]07-25-2024 14:00-0400Systolic blood pfsoffnw896 mm[Hg]Chair Stew Work Phone: [facility]07-18-2024 14:08-0400Diastolic blood syuqtwib52 mm[Hg]Chair Stew Work Phone: [facility]07-18-2024 14:08-0400Heart rate85 /min Chair Stew Work Phone: [facility]07-18-2024 14:08-0400Respiratory rate 18 /minChair Stew Work Phone: [facility]07-18-2024 14:08-6632QeH6% (BldA) [Mass fraction]96 %Chair Stew Work Phone: [facility]07-18-2024 14:08-0400Systolic blood tjeigzcf429 mm[Hg]Chair Stew Work Phone: [facility]07-12-2024 14:44-0400Blood Pressure LocationMonica Saba [phone]-Hazlp[address] [place], [place] 6447907-12-2024 14:44-0400Body .34 [degF]Monica Saba 721-1788Gasyks-Hxdqi[address] [place], [place] 6447907-12-2024 14:44-0400Diastolic blood izlloqku63 mm[Hg]Monica Saba 971-7885Ovtzcx-Chxbj[address] [place], [place] 6447907-12-2024 14:44-0400Heart rate85 /Jennifer Saba 063-4810Wkkwid-Mkrmk[address] [place], [place] 6447907-12-2024 14:44-0400Respiratory rate16 /Jennifer Saba 873-5436Bmxmlj-Sskwa[address] [place], [place] 6447907-12-2024 14:44-1475OjS2% (BldA) [Mass fraction]99 %Monica Saba 203-1906Redgiz-Isosn[address] [place], [place] 6447907-12-2024 14:44-0400Systolic blood sgsyqjto337 mm[Hg]Monica Saba 124-9922Sosayh-Gkiro[address] [place], [place] 6447906-25-2024 16:48-0400Blood Pressure LocationLourdes Garber 481-2165Tlehmt-Bjqyl[address] [place], [place] 6447906-25-2024 16:48-0400Body rlihszeeljv49.52 [degF]Lourdes Garber 938-3165Hpwcgj-Mngdf[address] [place], [place] 6447906-25-2024 16:48-0400Diastolic blood zqmtizfx64 mm[Hg]Lourdes Garber 070-4148Npbfle-Edmlf[address] [place], [place] 6447906-25-2024 16:48-0400Heart rate86 /minLourdes Garber 299-0102Ycfzpk-Wrtlt[address] [place], [place] 6447906-25-2024 16:48-8205QlU7% (BldA) [Mass fraction]99 %Lourdes Garber 729-8463Zdluzg-Cisat[address] [place], [place] 6447906-25-2024 16:48-0400Systolic blood xhpxgmyy655 mm[Hg]Lourdes Garber 774-9389Akdzqy-Gflnu[address] [place], [place] 6447905-31-2024 21:17-0400Body saxggofellm94.06 [degF]Benny Uribe [address]05-31-2024 21:17-0400 Diastolic blood qsumpvlh16 mm[Hg]Benny Uribe [address] [place], [place] 6044805-31-2024 21:17-0400Heart rate67 /minBenny Uribe [address] [place], [place] 6044805-31-2024 21:17-0400Mean blood wnxsobha64 mm[Hg]Benny Uribe [address] [place], [place] 6044805-31-2024 21:17-7463DbT2% (BldA) [Mass fraction]95 %Benny Uribe [address] [place], [place] 6044805-31-2024 21:17-0400 Systolic blood uxjgqghb768 mm[Hg]Benny Uribe [address] [place], [place] 5574105-31-2024 20:00-0400 Diastolic blood ukzbbwpp64 mm[Hg]Benny Uribe [address] [place], [place] 5574105-31-2024 20:00-0400Heart rate78 /minBenny Uribe [address] [place], [place] 5574105-31-2024 20:00-0400Mean blood unwxwgey67 mm[Hg]Benny Uribe [address] [place], [place] 5574105-31-2024 20:00-0400 Respiratory rate20 /minBenny Uribe [address] [place], [place] 5574105-31-2024 20:00-0400 Systolic blood ffadmkky349 mm[Hg]Benny Uribe [address] [place], [place] 5574105-31-2024 19:30-0400 Diastolic blood mm[Hg]Benny Uribe [address] [place], [place] 5574105-31-2024 19:30-0400Heart rate80 /minBenny Uribe [address] [place], [place] 5574105-31-2024 19:30-0400Mean blood mm[Hg]Benny Uribe [address] [place], [place] 5574105-31-2024 19:30-0400 Respiratory rate18 /minBenny Uribe [address] [place], [place] 5574105-31-2024 19:30-5825XhF9% (BldA) [Mass fraction]100 %Benny Uribe [address] [place], [place] 5574105-31-2024 19:30-0400 Systolic blood mfodpmtb987 mm[Hg]Benny Uribe [address] [place], [place] 5574105-31-2024 19:00-0400 Respiratory rate17 /minBenny Uribe [address] [place], [place] 5574105-31-2024 18:32-0400Body sajnxnnejbw31.42 [degF]Benny Uribe [facility]05-31-2024 18:32-0400Heart rate69 /minAntonderik Rony [facility]05-31-2024 17:46-0400 Diastolic blood iyiqkeov08 mm[Hg]JANET DUNHAM 970-0168Eczfiq-Srnni[address] [place] [address] Convenient Ogmn46-39-6622 17:46-0400Mean blood apwjsgou131 mm[Hg]MUNITH DUNHAM 005-0836Jtkudv-Qkpoc[address] [place] [address] [facility]ient Xuxm40-96-1214 17:46-0400Systolic blood jcnrsilc400 mm[Hg][facility] 419-8066Afajkw-Ubfan[address] [place] [address] Convenient Crqt95-73-1487 17:40-0400Blood Pressure LocationFRANCJONEL DUNHAM 124-0184Btzedn-Iaiam[address] [place] [address] Con[facility]ient Bkao70-36-2370 17:40-0400Body jrqemtnxize16.88 [degF][facility] 839-9502Myfphu-Datrz[address] [place] [address] [facility]ient Iopo19-38-7232 17:40-0400Diastolic blood cibvgemo82 mm[Hg][facility] 660-8320Smekaq-Rvumc[address] [place] [address] [facility]ient Woiw14-55-7447 17:40-0400Heart rate79 /minFRPRITESH DUNHAM 287-9433Xkdpwc-Aobag[address] [place] [address] [facility]ient Freo31-60-3314 17:40-5624JmI0% (BldA) [Mass fraction]97 %MUNITH DUNHAM 736-7346Dlzpqv-Bfnkq[address] [place] [address] [facility]ient Sinj47-70-6851 17:40-0400Systolic blood zgknouff731 mm[Hg]JANET DUNHAM 603-4332Wzomwt-Gobgb[address] [place] [address] [facility]ient Pvnq59-66-3185 11:42-0400Blood Pressure LocationScott KAPLE 053-6999Awxbko-QaajtPromedica Flower Hospital04-05-2024 11:42-0400Body ziwionardab29.06 [degF]Penelope CASAS 150-5401Yfvvnt-JtxsaPromedica Flower Hospital04-05-2024 11:42-0400Diastolic blood vhtbrnwu79 mm[Hg]Penelope CASAS 724-1036Lqwyyb-EolnoPromedica Flower Hospital04-05-2024 11:42-0400Heart rate72 /minScott KAPLE 833-4702Rhfmkx-StmlyPromedica Flower Hospital04-05-2024 11:42-0400Respiratory rate16 /minScott KAPLE 617-6659Kmvixn-RjhxhPromedica Flower Hospital04-05-2024 11:42-2647JdS0% (BldA) [Mass fraction]99 %Penelope CASAS 168-9267Hauult-QgcnoPromedica Flower Hospital04-05-2024 11:42-0400Systolic blood pqfkikli587 mm[Hg]Penelope CASAS 260-8942Tgavti-ZgrytPromedica Flower Hospital02-16-2024 14:05-0500Body .7 Jerry Calix MD Work Phone: [facility]02-16-2024 14:05-0500Body temperature 97.39 [degF]Kristofer Calix MD Work Phone: [facility]02-16-2024 14:05-0500Body ojdtqi112.1 kgKristofer Calix MD Work Phone: [place] [address]-16-2024 14:05-0500Diastolic blood hzkouevd30 mm[Hg]Kristofer Calix MD Work Phone: [facility]02-16-2024 14:05-0500Heart rate87 /min Kristofer Calix MD Work Phone: [place] [address]-16-2024 14:05-0500Respiratory rate 16 /minKristofer Calix MD Work Phone: [facility]02-16-2024 14:05-6374YzG5% (BldA) [Mass fraction]95 %Kristofer Calix MD Work Phone: [facility]02-16-2024 14:05-0500Systolic blood zfegtnbr502 mm[Hg]Kristofer Calix MD Work Phone: [facility]01-26-2024 11:11-0500Blood Pressure LocationScott KAPLE [address] [place], [place] 5320201-26-2024 11:11-0500Body ihwyypcihvx40.7 [degF]Penelope KAPLE [address] [place], [place] 5320201-26-2024 11:11-0500Diastolic blood mfwzgine59 mm[Hg]Penelope KAPLE 707-0751Veazcl-Gymas[address]01-26-2024 11:11-0500Heart rate76 /minScott KAPLE 979-7969Dwqlcl-Vsgij[address] [place], [place] 6447901-26-2024 11:11-0500Respiratory rate18 /minScott KAPLE [address] [place], [place] 5320201-26-2024 11:11-7379LjW0% (BldA) [Mass fraction]98 %Penelope KAPLE [address] [place], [place] 5320201-26-2024 11:11-0500Systolic blood kdoamala855 mm[Hg]Penelope KAPLE 723-4514Fitdyz-Neety[address]10-19-2023 09:41-0400Blood Pressure LocationScott KAPLE 286-7849Aygrsd-Lctxt[address] [place], [place] 6447910-19-2023 09:41-0400Body quayrsockye42.42 [degF]Penelope KAPLE 907-4851Fdwhqu-Dfcqa[address] [place], [place] 6447910-19-2023 09:41-0400Diastolic blood xxixnkfe03 mm[Hg]Penelope PRAVEEN 288-4877Ldbyzv-Ulcgx[address] [place], [place] 6447910-19-2023 09:41-0400Heart rate80 /minScott KAPLE 743-4318Cxxmeh-Dszby[address] [place], [place] 6447910-19-2023 09:41-0400Respiratory rate18 /minScott KAPLE 372-9220Nmetkb-Cwvcq[address] [place], [place] 6447910-19-2023 09:41-5822HeC7% (BldA) [Mass fraction]98 %Penelope STEPHANIBEN 739-3461Zxzibt-Nvnki[address]10-19-2023 09:41-0400Systolic blood hgvzkjug494 mm[Hg]Penelope PRAVEEN 839-5760Etfssi-Sdocm[address]06-23-2023 09:44-0400Blood Pressure LocationScott STEPHANILE [address] [place], [place] 5320206-23-2023 09:44-0400Body .24 [degF]Penelope PRAVEEN [address] [place], [place] 5320206-23-2023 09:44-0400Diastolic blood ysxbukor09 mm[Hg]Penelope CASAS 249-2094Enppnp-Dofew[address]06-23-2023 09:44-0400Heart rate88 /minScott STEPHANILE 985-0931Dqzofb-Fbybt[address] [place], [place] 6447906-23-2023 09:44-0400Respiratory rate18 /minScott KAPLE 681-5254Lwctzl-Fnzbl[address] [place], [place] 6447906-23-2023 09:44-2956GhI7% (BldA) [Mass fraction]98 %Penelope CASAS 265-8940Cayzwy-Xyqti[address] [place], [place] 6447906-23-2023 09:44-0400Systolic blood mm[Hg]Penelope CASAS 930-4730Lvkbcb-BembtPromedica Flower Hospital03-30-2023 13:18-0400Body kpejgb065.7 cmVramos Calix MD Work Phone: [facility]03-30-2023 13:18-0400Body temperature 97.5 [degF]Kristofer Calix MD Work Phone: [facility]03-30-2023 13:18-0400Body nziras371.78 kgKristofer Calix MD Work Phone: [facility]03-30-2023 13:18-0400Diastolic blood osidaudg30 mm[Hg]Kristofer Calix MD Work Phone: [facility]03-30-2023 13:18-0400Heart rate76 /min Kristofer Calix MD Work Phone: [facility]03-30-2023 13:18-0400Respiratory rate 16 /minKristofer Calix MD Work Phone: [facility]03-30-2023 13:18-5617GfI3% (BldA) [Mass fraction]97 %Kristofer Calix MD Work Phone: [facility]03-30-2023 13:18-0400Systolic blood yxicusaf603 mm[Hg]Kristofer Calix MD Work Phone: [facility]12-22-2022 13:45-0500Body temperature 98.71 [degF]Chair Stew Work Phone: [facility]12-22-2022 13:45-0500Diastolic blood zgvehjal20 mm[Hg]Chair Stew Work Phone: [facility]12-22-2022 13:45-0500Heart rate85 /min Chair Stew Work Phone: [place] [address]-22-2022 13:45-9749HsS8% (BldA) [Mass fraction]97 %Chair Stew Work Phone: [facility]12-22-2022 13:45-0500Systolic blood llcebsie117 mm[Hg]Chair Melbourne Work Phone: [facility]12-07-2022 16:27-0500Diastolic blood glgogyxg42 mm[Hg]Chair Melbourne Work Phone: [phone] [address]-07-2022 16:27-0500Heart rate84 /min Chair Stew Work Phone: [place] [address]-07-2022 16:27-0500Respiratory rate 18 /minChair Stew Work Phone: [place] [address]-07-2022 16:27-9051XuW7% (BldA) [Mass fraction]96 %Chair Stew Work Phone: [facility]12-07-2022 16:27-0500Systolic blood yxzigyii914 mm[Hg]Chair Stew Work Phone: [facility]11-28-2022 14:20-0500Body xshurx422.7 cmVramos Calix MD Work Phone: [facility]11-28-2022 14:20-0500Body temperature 97.39 [degF]Kristofer Calix MD Work Phone: [place] [address]-28-2022 14:20-0500Body hzezks300.23 kgKristofer Calix MD Work Phone: [place] [address]-28-2022 14:20-0500Diastolic blood mm[Hg]Kristofer Calix MD Work Phone: [place] [address]-28-2022 14:20-0500Heart xiou614 /minKristofer Calix MD Work Phone: [place] [address]-28-2022 14:20-0500Respiratory rate 16 /minKristofer Calix MD Work Phone: [facility]11-28-2022 14:20-0540RdF1% (BldA) [Mass fraction]97 %Kristofer Calix MD Work Phone: [facility]11-28-2022 14:20-0500Systolic blood urckdggk923 mm[Hg]Kristofer Calix MD Work Phone: [facility]10-03-2022 11:46-0400Body riqksq255.7 cmVramos Calix MD Work Phone: [facility]10-03-2022 11:46-0400Body temperature 97.2 [degF]Kristofer Calix MD Work Phone: [facility]10-03-2022 11:46-0400Body .42 kgKristofer Calix MD Work Phone: [facility]10-03-2022 11:46-0400Diastolic blood kykqqqgu63 mm[Hg]Kristofer Calix MD Work Phone: [facility]10-03-2022 11:46-0400Heart rate88 /min Kristofer Calix MD Work Phone: [facility]10-03-2022 11:46-0400Respiratory rate 16 /minKristofer Calix MD Work Phone: [facility]10-03-2022 11:46-1379UmE4% (BldA) [Mass fraction]99 %Kristofer Calix MD Work Phone: [facility]10-03-2022 11:46-0400Systolic blood drjufqcl328 mm[Hg]Kristofer Calix MD Work Phone: [facility]04-22-2022 10:46-0400Blood Pressure [facility]AM[facility] 931-5625Nfsnzq-ArpayFlower Hospital 04-22-2022 10:46-0400Diastolic blood gqomkarl63 mm[Hg] PERNELL SIDELL 136-9055Hcheoc-EnegdFlower Hospital 04-22-2022 10:46-0400Heart rate96 /minDERIK SIDELL 371-8665Ttyyor-MuycbFlower Hospital 04-22-2022 10:46-3989CeQ6% (BldA) [Mass fraction]99 % PERNELL SIDELL 136-8598Olzsky-OwqerFlower Hospital 04-22-2022 10:46-0400Systolic blood nerltwys717 mm[Hg] PERNELL SIDELL 956-6511Wamowi-WhbxqFlower Hospital Encounters Encounter DateEncounter [facility] ProviderFacilityStart: 03-11-2025 End: 31-96-4833jlzyhucnmgTUMYKSOhioHealth Berger Hospitaltart: 03-11-2025 End: 12-24-7015Nvaqea outpatient visit 25 minutesSana Palma MD Work Phone: [phone]-Xdvjh [facility] Comment on above:Gestational diabetes mellitus (GDM) in second trimester controlled on oral hypoglycemic drug (Primary Dx); Antiphospholipid syndromeStart: 03-10-2025 End: 28-24-2065Blifyk flowsheetCorey Montez DO Work Phone: [facility] OBGYNStart: 03-10-2025 End: 05-73-6439Lrqyih flowsheetCorey Montez DO Work Phone: NOII [facility] OBGYNStart: 03-10-2025 End: 79-51-2981rgpototiiiHBEMG FAZIONot AvailableStart: 03-06-2025 End: 71-56-2925Pwqgjetmw Result EncounterCorey Montez DO Work Phone: [facility] External Department UnsolicitedStart: 03-06-2025 End: 53-45-9364Rjupjoqll Result EncounterCorey Montez DO Work Phone: [facility] External Department UnsolicitedStart: 03-02-2025 End: 76-02-7892vdnaklqpizPBIPZ MARTINEZFacility:[facility] Daytontart: 02-27-2025 End: 47-28-1471Jdahuwxws Result EncounterCorey Montez DO Work Phone: [facility] External Department UnsolicitedStart: 02-27-2025 End: 16-83-3646Ouqptiovk Result EncounterCorey Montez DO Work Phone: [facility] External Department UnsolicitedStart: 02-23-2025 End: 28-48-8633Rehilm flowsheetCorey Monetz DO Work Phone: NOVK [facility] OBGYNStart: 02-23-2025 End: 19-88-8049Ntnpgt flowsheetCorey Montez DO Work Phone: noms Piyush OBGYNStart: 02-23-2025 End: 97-45-0100uhdabcllmoQGNFP FAZIONot AvailableStart: 02-23-2025 End: 45-46-0455Bpcddu outpatient visit 15 minutesCorey Montez DO Work Phone: noms [facility] OBGYNComment on above:Third trimester ([facility]); 30 weeks gestation of ([facility])Start: 02-20-2025 End: 22-00-4159Yqxxqiogq Result EncounterCorey Montez DO Work Phone: [facility] External Department UnsolicitedStart: 02-20-2025 End: 12-79-6878Kxxmklhhm Result EncounterCorey Montez DO Work Phone: noms External Department UnsolicitedStart: 02-17-2025 End: 69-48-1863Hjpypwbbh Result EncounterCorey Montez DO Work Phone: noms External Department UnsolicitedStart: 02-17-2025 End: 52-98-4357Oiwfrnukc Result EncounterCorey Montez DO Work Phone: noms External Department UnsolicitedStart: 02-16-2025 End: 25-09-0088Ayafmh consultation new/estab patient 80 Héctor Callahan MD MPH Work Phone: [facility] CenterComment on above:Antiphospholipid syndrome (Primary Dx); Antiphospholipid syndrome complicating , antepartum; History of CVA (cerebrovascular accident); Coordination of complex care; 29 weeks gestation of pregnancyStart: 02-16-2025 End: 15-91-2266bnxsijxbycJXCGY REDDY AMBATISelect Medical Specialty Hospital - Columbustart: 02-10-2025 End: 37-10-4613Hbggqbsvm encounterAnnita WELLS Work Phone: [phone]-Kalki [facility] Start: 02-09-2025 End: 25-20-6649hfezifcgdqTNTEJ FAZIONot AvailableStart: 02-09-2025 End: 70-01-8590Tponee outpatient visit 15 minutesCorey Montez DO Work Phone: noms [facility] OBGYNComment on above:Third trimester ([facility]); 28 weeks gestation of ([facility]); Anemia complicating childbirth ([facility]); Anticoagulant long-term use; Antiphospholipid antibody positive; Blood pressure elevated without history of HTN; Coagulation defect, unspecified ([facility])Start: 02-06-2025 End: 86-05-6709lngayjkzhqLANIZJBJ P DOCHEVATogus VA Medical Center HospitalStart: 02-06-2025 End: 97-43-4431Bubasz outpatient visit 25 minutesMukul Noyola MD Work Phone: [phone]-Szidd [facility] at [facility] Comment on above:27 weeks gestation of (Primary Dx); Multigravida of advanced maternal age in third trimester; Gestational diabetes mellitus (GDM) in second trimester controlled on oral hypoglycemic drug; Antiphospholipid syndrome complicating , antepartum; Antiphospholipid syndromeStart: 02-05-2025 End: 44-08-5052fwupadyiznLOMMV [facility] PPGStart: 02-03-2025 End: 32-21-7405sqpgzuglcrPfloc R FAOFacility:FTMCStart: 01-19-2025 End: 82-16-5393kyaywszzetUTNOR FAONot AvailableStart: 01-19-2025 End: 38-64-6770Yjoftm outpatient visit 15 minutesCorey Montez DO Work Phone: NOKY Piyush OBGYNComment on above:Second trimester ([facility] 25 weeks gestation of ([facility]); Gestational diabetes mellitus (GDM), antepartum, gestational diabetes method of control unspecified([facility]); Anticoagulant long-term use; Antiphospholipid antibody positive; Antiphospholipid antibody syndrome ([facility])Start: 37-83-1778dhaaykpebfGexzm R FAZIOFacility:FTMCStart: 01-13-2025 End: 61-75-6656Jywogq outpatient visit 25 minutesColleen Maxim Mays PA-C Work Phone: [phone]-Lsrmr Medicine at [facility] Comment on above:Gestational diabetes mellitus (GDM) in second trimester controlled on oral hypoglycemic drug (Primary Dx); Antiphospholipid syndrome; Other specified hypothyroidism; Antiphospholipid syndrome complicating , antepartumStart: 01-13-2025 End: 52-00-0691aqbbeoboneXZCUUBK E Premier Healthtart: 01-09-2025 End: 33-74-6225Luhynfttx Batsheva Noyola MD Work Phone: [phone]-Ccqlm Medicine at [facility] Comment on above:Antiphospholipid syndrome (Primary Dx)Start: 01-07-2025 End: 73-55-8387Fhedgedgi encounterJacque Pat Maternal- [facility] at [facility] Columbustart: 01-05-2025 End: 15-60-0756bfnvsfozxgKEIEM FAONot AvailableStart: 01-05-2025 End: 39-60-9590Vmltpd outpatient visit 15 minutesCorey Salir.com Work Phone: NOM[facility] [place] OBGYNComment on above:Second trimester ([facility]); 23 weeks gestation of ([facility]); Thyroid disease ; Gestational diabetes mellitus (GDM), antepartum, gestational diabetes method of control unspecified([facility]); Multigravida of advanced maternal age in second trimester ([facility]); H/O loss; Lightheaded; DizzinessStart: 01-05-2025 End: 64-27-6934Nybrgw flowsheetSpare to Sharey Salir.com Work Phone: NOSX [place] OBGYNStart: 01-05-2025 End: 20-28-1436Eiugvc flowsheetCore Montez DO Work Phone: NONM Piyush OBGYNStart: 01-05-2025 End: 41-34-0847Nfxvrmbwcktsf procedureWesson Women'S Hospital RNMaternal- Medicine at [facility] CenterComment on above:Multigravida of advanced maternal [...] Family history of autism; HyponatremiaStart: 01-01-2025 End: 42-09-1276Kaczhd consultation new/estab patient 80 Margaux Noyola MD Work Phone: [facility] on above: 22 weeks gestation of (Primary Dx); Antiphospholipid syndrome complicating , antepartum; History of stroke; History of loss in prior , currently in second trimester; Gestational diabetes mellitus (GDM) in second trimester controlled on oral hypoglycemic drug; Multigravida of advanced maternal age in second trimester; Hypothyroidism affecting in second trimester; Family history of autism; HyponatremiaStart: 01-01-2025 End: 44-97-3720Qyvdjk Simon [place] RNMaternal [place] Comment on above:Multigravida of advanced maternal age in second trimester (Primary Dx); Antiphospholipid syndrome complicating , antepartum; Gestational diabetes mellitus (GDM) in second trimester controlled on oral hypoglycemic drug; Insulin controlled gestational diabetes mellitus (GDM) in second trimester; AMA (advanced maternal age) multigravida 35+, second trimester; Hypothyroidism, unspecified typeStart: 12-26-2024 End: 99-91-5416Smwjet Ty Noyola MD Work Phone: [facility] - LaborComment on above: Gestational diabetes mellitus (GDM) in second trimester controlled on oral hypoglycemic drug (Primary Dx)Start: 12-23-2024 End: 84-00-4123Knrqleo encounter procedureKatherine Negrete APRN.CNP Work Phone: Hematology/OncologyStart: 12-23-2024 End: 61-67-1394ijjoxoxzobQnvguJuju Negrete APRN.CNP Work Phone: Hematology/OncologyComment on above:Antiphospholipid antibody positive (Primary Dx); Iron deficiency anemia secondary to blood loss (chronic); Vitamin D deficiency; Primary hypercoagulable state (HCC)Start: 12-17-2024 End: 35-04-7604qwbiybohvjWIWOXACS BROGANTogus VA Medical Center HospitalStart: 12-17-2024 End: 86-87-4294Szsdlu outpatient visit 25 minutesAlisa HUTTON Work Phone: [phone]-Ihhlm Medicine at [facility] Comment on above:Gestational diabetes mellitus (GDM) in second trimester controlled on oral hypoglycemic drug (Primary Dx)Start: 12-17-2024 End: 62-65-4186zchofrtiimCBOLDWDW BROProMedica Fostoria Community Hospital HospitalStart: 12-16-2024 End: 22-43-9592Fxakeosna Result EncounterCorey Montez DO Work Phone: noms External Department UnsolicitedStart: 12-16-2024 End: 98-79-8398Rreyoonfe Result EncounterCorey Montez DO Work Phone: noms External Department UnsolicitedStart: 12-12-2024 End: 57-08-3653Qgxoxhfgo encounterDenikijacinta Kendall LD Work Phone: [phone]-Swndm Medicine at [facility] Start: 12-11-2024 End: 35-34-6299Nqjzum flowsheetCorey Montez DO Work Phone: noms P[facility]ush OBGYNStart: 12-11-2024 End: 28-96-6913Mqpuzy flowsheetCorey Montez DO Work Phone: noms [place] OBGYNStart: 12-11-2024 End: 00-77-7070Eubphnwva Result EncounterCorey Montez DO Work Phone: noms External Department UnsolicitedStart: 12-11-2024 End: 51-51-1144vehetomthfUVPIE FAZIONot AvailableStart: 12-11-2024 End: 16-91-9241Hrqaye outpatient visit 15 minutesCorey Montez DO Work Phone: noms [place] OBGYNComment on above:19 weeks gestation of ([facility]); Second trimester ([facility]); Thyroid disease ; Multigravida of advanced maternal age in second trimester ([facility]); Gestational diabetes mellitus (GDM), antepartum, gestational diabetes method of control unspecified([facility])Start: 12-03-2024 End: 42-36-5119pulttxdtvgPMPBUILS BROGANProMedica Green Cross Hospitaltart: 12-03-2024 End: 65-44-4995Eqrlby outpatient visit 25 minutesAlisa Saba CASING INSPECTOR-MASTER CONTROL TECHNICIAN Work Phone: [phone]-Vtixz Medicine at [facility] Comment on above:Insulin controlled gestational diabetes mellitus (GDM) in second trimester (Primary Dx)Start: 12-03-2024 End: 58-45-5314Dknecgpar encounterAnni Abreu CMAMaternal- Medicine at [facility] Columbustart: 11-20-2024 End: 55-30-4591Yynzjw flowsheetCorey Montez DO Work Phone: NOMS BCP OBStart: 11-20-2024 End: 73-39-9183Kgyzcm flowsheetCorey Montez DO Work Phone: NOMS BCP OBStart: 11-20-2024 End: 78-66-1473mmrzllkbzgJGGFD FAZIONot AvailableStart: 11-20-2024 End: 50-98-5955Akqkrc outpatient visit 15 minutesCorey Montez DO Work Phone: N[facility] [place] OBGYNComment on above:Second trimester ([facility]); 16 weeks gestation of ([facility]); Screening, , for anatomic survey ([facility]); Vaginal discharge; Sinus headacheStart: 11-19-2024 End: 29-51-9128vcrnytagekRvbeje M Frey RN Work Phone: [phone]-Vzhen Medicine at [facility] Comment on above:Gestational diabetes mellitus (GDM), antepartum, gestational diabetes method of control unspecified(Primary Dx)Start: 11-04-2024 End: 49-89-3860Nebqz Syd Noyola MD Work Phone: [phone]-Dzlqi Medicine at [facility] Start: 10-30-2024 End: 60-18-0765Wqvvtf flowsheetCorey Montez DO Work Phone: NOMS BCP OBStart: 10-30-2024 End: 74-85-9734Xwpnql flowsheetCorey Montez DO Work Phone: NOMS BCP OBStart: 10-30-2024 End: 67-89-0992Hlnigy outpatient visit 15 minutesCorey Montez DO Work Phone: NOMS BCP OBComment on above:Second trimester ([facility]); 13 weeks gestation of ([facility]); Thyroid disease ; Multigravida of advanced maternal age in second trimester ([facility]); Gestational diabetes mellitus (GDM), antepartum, gestational diabetes method of control unspecified([facility]); Elevated glucose tolerance testStart: 10-30-2024 End: 81-72-9214uzpwocemioVCSOS FAZIONot AvailableStart: 10-29-2024 End: 66-01-1284UvhvfpKbxhtpBunny Paz APRN.CNP Work Phone: Hematology/OncologyComment on above:Refill Request Start: 10-28-2024 End: 81-41-8151Dsgamrc encounter Valentine Negrete APRN.CNP Work Phone: Hematology/OncologyStart: 10-28-2024 End: 25-94-6781imkqdtknkpMkqhoJuju Negrete APRN.CNP Work Phone: Hematology/OncologyComment on above:Primary hypercoagulable state (HCC) (Primary Dx); CVA, old, speech/language deficit; Cerebral hyponatremia; Personal history of TIA (transient ischemic attack)Start: 10-28-2024 End: 30-28-9024Eawyskrcy Gregoria Negrete APRN.CNP Work Phone: Cancer Appts MCComment on above:ResultsStart: 10-24-2024 End: 15-02-0389Dzflekmll Gregoria Negrete APRN.CNP Work Phone: Hematology/OncologyComment on above:Lab OrdersStart: 10-20-2024 End: 61-95-0192NbnvkeJvmdv Abhyankar MD Work Phone: Hematology/OncologyComment on above:Refill Request Start: 10-13-2024 End: 01-58-4228EzhiwpDell Khan RNMaternal- Medicine at [facility] CenterComment on above:Gestational diabetes mellitus (GDM), antepartum, gestational diabetes method of control unspecified(Primary Dx)Start: 10-06-2024 End: 75-19-5785Ulzqyhclq Result EncounterCorey Montez DO Work Phone: noms External Department UnsolicitedStart: 10-06-2024 End: 01-75-2431Vgllnymda Result EncounterCorey Montez DO Work Phone: noms External Department UnsolicitedStart: 10-02-2024 End: 44-67-9885nwruuseqfzKPFOY FAZIONot AvailableStart: 10-02-2024 End: 21-67-6795Axvhxi outpatient visit 5 minutesNoms Bcp Ob Montez NurseNOMS BCP OBComment on above:GA: 7l2tDiftj: 09-11-2024 End: 43-13-5489Uqnieyflx Result EncounterCorey Montez DO Work Phone: noms External Department UnsolicitedStart: 09-11-2024 End: 61-78-9543Clwnuaimw Result EncounterCorey Montez DO Work Phone: noms External Department UnsolicitedStart: 09-09-2024 End: 61-95-3522hvfijabehyBdmdl A KAPLEFacility:Val PCStart: 09-09-2024 End: 72-81-0856Mekhwkp encounter procedureScomike CASAS [phone]-PagpaMercy Health St[facility] Start: 09-07-2024 End: 36-38-8584qrkiudcuslVyenh M. DempseyFacility:GIL NorwalkStart: 09-02-2024 End: 70-61-6179Zmupnylip encounterNatmurphy Johnson RNHematology/OncologyComment on above:Patient UpdateStart: 08-26-2024 End: 63-06-9474Twklcxqmh encounterKristofer Calix MD Work Phone: Hematology/OncologyComment on above:Lab OrdersStart: 08-23-2024 End: 39-23-3619hxbjcjetpbSbphv R FAZIOFacility:FTMCStart: 08-23-2024 End: 62-40-8171Sdttehs encounter procedureCorecarmen Palmer MONTEZ [facility] Start: 07-25-2024 End: 38-55-9628UtlpeoMcgtn Abhyankar MD Work Phone: Hematology/OncologyComment on above:Refill Request Start: 07-24-2024 End: 53-00-7406Ebulhw flowsheetCorey Montez DO Work Phone: noms BCP OBStart: 07-24-2024 End: 92-24-1312Yuzcpi flowsheetCorey Montez DO Work Phone: noms BCP OBStart: 07-24-2024 End: 09-44-3432qyfnayilsiDWIKK FAZIONot AvailableStart: 07-24-2024 End: 30-92-3056Owyqqv outpatient visit 15 minutesCorey Montez DO Work Phone: noms BCP OBComment on above:Irregular menstrual cycle Start: 07-09-2024 End: 27-02-0331jdlocwihyvKrfycht A VisciFacility:FTMCStart: 07-09-2024 End: 03-13-8785Nefeeay encounter procedureInez Wakefield [facility] Start: 07-08-2024 End: 47-01-1212Pxd-admission assessmentInez Wakefield [facility] Start: 07-07-2024 End: 43-17-9787qucqzcrbszQwivb A KAPLEFacilсветлана:Val PCStart: 06-30-2024 End: 77-05-0368pbfxidjbpoWmczq A KAPLEFacility:Val PCStart: 06-30-2024 End: 97-39-9198Jhyzfox encounter procedureScomike CASAS [phone]-VkhxsMercy Health St. [facility] Start: 06-23-2024 End: 26-51-8919Cuyiwa outpatient visit 15 minutesCorey Montez DO Work Phone: noms [facility] OBComment on above:Vaginal bleeding; Dizziness; Abnormal TSH; Vaginal discharge; Pelvic pain in femaleStart: 06-23-2024 End: 76-92-1112weythopyvbHAGWN FAZIONot AvailableStart: 06-23-2024 End: 29-47-4129Yvmsgovj Result EncounterCorey Montez DO Work Phone: noms External Department UnsolicitedStart: 06-23-2024 End: 55-64-0187Dminznwc Result EncounterCorey Montez DO Work Phone: noms External Department UnsolicitedStart: 06-19-2024 End: 78-83-8682vjaunzuogcWTSFRF R CIERSEZWSKIFacility: MilanStart: 06-19-2024 End: 73-57-6365Xfpqtho encounter procedureJACLYN Jeanine BACA [phone] Start: 06-12-2024 End: 07-71-9167tsfgomwamwKmjxz R SHYLAZIOFacility:FTMCStart: 06-12-2024 End: 22-77-4097Qqwcnui encounter procedureCorey R MONTEZ [facility] Start: 06-09-2024 End: 25-46-6008lpngdkhktaXcqlg A KAPLEFacility:Val PCStart: 06-09-2024 End: 32-09-2911Oizwzlu encounter procedureCorey R MONTEZ [facility] Start: 06-06-2024 End: 40-32-5823ctcfgegoucRJYAQX A LEHMANNFacility:FT BellevueStart: 06-02-2024 End: 87-34-2047drczrimrnjWXCQK FAZIONot AvailableStart: 06-02-2024 End: 34-56-6279Bhuula outpatient visit 15 minutesCorey Montez DO Work Phone: noms BCP OBComment on above:Follow-up visit after miscarriage; Abnormal TSH; History of thyroid diseaseStart: 05-28-2024 End: 74-20-1323Rxhytylrl encounterKristofer Calix MD Work Phone: Cancer Appts MCStart: 05-28-2024 End: 04-49-9066Lnlgbx outpatient visit 25 minutesKristofer Calix MD Work Phone: Hematology/OncologyComment on above:Primary hypercoagulable state (HCC) (Primary Dx); CVA, old, speech/language deficit; Iron deficiency anemia secondary to blood loss (chronic); Vitamin D deficiency; Antiphospholipid antibody syndrome (HCC)Start: 05-28-2024 End: 94-56-0068cwtdsmexzsHMDKP ABHYANKARFacility:[facility] Daytontart: 56-25-0498rerjkflzmiUlctj A KAPFacility:[facility] PCStart: 05-14-2024 End: 37-30-6377Yowmcyifx encounterNatmurphy Johnson RNHematology/OncologyComment on above:Patient UpdateStart: 05-10-2024 End: 96-22-4120Ahiiaprmz Result EncounterCorey Montez DO Work Phone: noms External Department UnsolicitedStart: 05-10-2024 End: 78-35-2301Vmmuedivo Result EncounterCorey Montez DO Work Phone: noms External Department UnsolicitedStart: 05-10-2024 End: 77-39-7411lhzwaqqamhZkljy FazioFiC[facility] Clinic [facility] Work Phone: Start: 05-10-2024 End: 08-90-0169Hyssmdsm ReferredCorey Montez DO Work Phone: [facility] Path Spec Piyush HospStart: 05-06-2024 End: 97-75-4869hrloiudwewMZURU FAZIONot AvailableStart: 05-06-2024 End: 33-21-6287Xyrlfe flowsheetCorey Mnotez DO Work Phone: noms BCP OBStart: 05-06-2024 End: 53-70-1807Xaqepj flowsheetCorey Montez DO Work Phone: NOOC BCP OBStart: 05-06-2024 End: 76-80-6370jdxgmnbaibFIKOI FAZIONot AvailableStart: 05-06-2024 End: 53-53-8416Dclxed outpatient visit 15 minutesCorey Montez DO Work Phone: noms BCP OBComment on above:14 weeks gestation of ; Second trimester ; Confirm viability with history of miscarriage, ultrasoundStart: 04-28-2024 End: 06-58-6947JfwpvrNhxbh Abhyankar MD Work Phone: Hematology/OncologyComment on above:Refill Request Start: 04-12-2024 End: 81-21-8761Tjnrqeuac Result EncounterCorey Montez DO Work Phone: noms External Department UnsolicitedStart: 04-12-2024 End: 27-12-1252Mcbctbgui Result EncounterCorey Montez DO Work Phone: noms External Department UnsolicitedStart: 04-05-2024 End: 76-91-1284Xeieyspsm Result EncounterCorey Montez DO Work Phone: noms External Department UnsolicitedStart: 04-05-2024 End: 16-68-7775Tccxqsmff Result EncounterCorey Montez DO Work Phone: noms External Department UnsolicitedStart: 04-04-2024 End: 21-99-7825grxvexcutbPYANW FAZIONot AvailableStart: 04-04-2024 End: 96-55-3495Llnxny outpatient visit 5 minutesNoms Bcp Ob Montez NurseNOMS BCP OBComment on above:GA: 1p6tJrvry: 03-01-2024 End: 38-26-4914zwhshtqbgwIxypi R FAZIOFacility:FTMCStart: 03-01-2024 End: 93-94-6516Uyehsgo encounter procedureCorey R MONTEZ [facility] Start: 02-27-2024 End: 36-00-3931bjomltpxbtHxywp R FAZIOFacility:FTMCStart: 02-27-2024 End: 94-22-6189Bfspdhvjo encounterNatmurphy Johnson RNHematology/OncologyComment on above:Patient QuestionStart: 02-25-2024 End: 57-93-8040urkapyizhcYynni R FAZIOFacility:FTMCStart: 02-25-2024 End: 69-55-3306Puzaugs encounter procedureCorey R MONTEZ [facility] Start: 02-23-2024 End: 57-85-8281lebporgmreKwayo A KAPLEFacility:FTMCStart: 02-23-2024 End: 61-94-3321Sjmfqbw encounter procedureCorey R MONTEZ [facility] Start: 02-05-2024 End: 67-17-4329pkynzaqicwSqacr A STEPHANILEFacility:Val PCStart: 02-05-2024 End: 13-63-4208Ozpguid encounter procedureScott A KAPLE [phone]-AqjkcMercy Health St. [facility] Start: 02-05-2024 End: 16-93-1443Xbpg adult monitoring check doneScott A STEPHANILE [phone]-NkgcvMercy Health St. [facility] Start: 02-02-2024 End: 37-68-9945fzizqcnppdBcmufo GudimellaFacility:GIL TaylorkStart: 02-02-2024 End: 40-86-7003Fvwlirs encounter procedurePreeti Merlincatiesherry [phone]-CdhseMercy Health St. [facility] Start: 65-91-4619pqortcieumAqkdc A STEPHANI Facility:[facility] PCStart: 01-24-2024 End: 82-51-5275PjkcsrKokql Abhyankar MD Work Phone: Hematology/OncologyComment on above:Refill Request Start: 01-02-2024 End: 65-04-9937Vlhnvnzjj encounterKristofer Calix MD Work Phone: Cancer Appts MCComment on above:ResultsStart: 01-02-2024 End: 98-34-4723Aaveiy outpatient visit 15 minutesKristofer Calix MD Work Phone: Hematology/OncologyComment on above:Iron deficiency anemia secondary to blood loss (chronic) (Primary Dx); Vitamin D deficiency; Malaise and fatigueStart: 12-17-2023 End: 60-74-1331Tyutdeubm encounterNatalimaxim Johnson RNHematology/OncologyStart: 12-06-2023 End: 76-35-9033kecrfhvpgwUjsllkoei L ClarkFacility:FTMCStart: 12-06-2023 End: 37-00-8535Luxemwi encounter procedureMonica Saba [facility] Start: 59-03-1818joasriaonsEcant A STEPHANI Facility:[facility] PCStart: 11-29-2023 End: 02-79-6308zmiwjrkpydYqlsc Abhyankar MD Work Phone: Hematology/OncologyComment on above:Iron infusion side effects?Refill RequestIron deficiency anemia of (Primary Dx); Iron deficiency anemia secondary to blood loss (chronic)Start: 11-22-2023 End: 16-01-2913wutlqvuzebPtvms Angeliot Claudio Work Phone: Hematology/OncologyComment on above:Iron deficiency anemia of (Primary Dx); Iron deficiency anemia secondary to blood loss (chronic)Start: 11-15-2023 Telephone encounterFinancial Navigator Delgado Work Phone: Hematology/OncologyStart: 11-15-2023 End: 87-78-8191gkuippyigxYkwrk Angelito Stew Work Phone: Hematology/OncologyComment on above:Iron deficiency anemia of (Primary Dx); Iron deficiency anemia secondary to blood loss (chronic)Start: 11-09-2023 End: 46-76-1030Iuajoua encounter procedureElirachna Saba [phone]-JzbbdMercy Health St. [facility] Start: 11-09-2023 End: 77-65-5973Kbljde WorkLori Penelope FLYNNematology/OncologyStart: 11-05-2023 Telephone encounterKristofer Calix MD Work Phone: Cancer Appts MCComment on above:AppointmentStart: 10-23-2023 End: 53-34-6154xzzxrucnilRafxtoo Grace MisslerFacility:Val PCStart: 10-23-2023 End: 36-85-6432Fhzcyfo encounter procedureLourdes Garber [phone]-MnaoxMercy Health St. [facility] Start: 09-28-2023 End: 62-85-7337Njbaeoita department patient visitBenny Uribe [facility] Start: 09-28-2023 End: 46-60-5328dogsehojpoPODelma DUNHAMFacility:GIL TaylorkStart: 09-28-2023 End: 94-03-8702Yvbbnjj encounter procedureJANET DUNHAM [phone]-EqtjoMercy Health St. [facility] Start: 51-40-0089Eqzjukzgu encounterKristofer Calix MD Work Phone: Canfcg Appts MCComment on above:Appointment RescheduledStart: 09-21-2023 End: 30-21-0447vgksydyecyQbgzj Abhyankar MD Work Phone: Hematology/OncologyComment on above:Iron deficiency anemia secondary to blood loss (chronic) (Primary Dx)Start: 09-21-2023 End: 82-98-2891Kgwnqonlzvan consultation with Song Calix MD Work Phone: Hematology/OncologyStart: 08-03-2023 End: 17-04-0968nqucvyyqvyCeqmv A KAPLEFacility:Val PCStart: 08-03-2023 End: 74-26-4309Fjpbrqo encounter procedureScott Cecily CASAS [phone]-DskayMercy Health St. [facility] Start: 06-29-2023 End: 55-12-9092mtempgqzmuDqwxe A KAPLEFacility:Val PCStart: 06-29-2023 End: 40-57-4110Dwvzpan encounter procedureScott A KAPLE [phone]-QdnecMercy Health St. [facility] Start: 20-02-5946ausdmioranUbrotbn Powell 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 instructor/OncologyComment on above:Lab results/recommendationsStart: 06-19-2023 E-mail encounter from Jose Carlos Johnson RNSANDUSKYStart: 06-15-2023 End: 31-13-2614Mcegbp outpatient visit 25 minutesKristofer Calix MD Work Phone: Hematology/OncologyComment on above:Vitamin D deficiency (Primary Dx); Hypercalcemia; Iron deficiency anemia secondary to blood loss (chronic)Start: 06-15-2023 Telephone encounterKristofer Calix MD Work Phone: Cancer Appts MCComment on above:ResultsStart: 84-82-0342Zlgmgthjq encounterKristofer Calix MD Work Phone: Hematology/OncologyComment on above:Lab OrdersStart: 20-58-2943Kselzzcue encounterKristofer Calix MD Work Phone: Cancer Appts MCComment on above:Future Appointment Start: 05-31-2023 End: 85-50-0167yhipfvcshxVgkwi Abhyankar MD Work Phone: Hematology/OncologyComment on above:Primary hypercoagulable state (HCC) (Primary Dx); CVA, old, speech/language deficit; Hypercalcemia; Vitamin D deficiency; Iron deficiency anemia secondary to blood loss (chronic); Malaise and fatigueStart: 05-31-2023 End: 13-44-6171Decsutquhbxw consultation with Song Calix MD Work Phone: SANDUSKYStart: 05-25-2023 End: 68-79-5006wgpkwspfmbHxwow A KAPLEFacility:Val PCStart: 05-25-2023 End: 66-12-5060Nuuvdlb encounter Coreen CASAS [phone]-EcthmMercy Health St. [facility] Start: 05-01-2023 End: 19-59-3850bsikiagdnwKespj A KAPLEFacility:FTMCStart: 04-27-2023 End: 67-65-8215Rkb Drop offSelissa CASAS [facility] Start: 04-27-2023 End: 12-36-0949tivkosrindXfvha A KAPLEFacility:FTMCStart: 04-25-2023 End: 56-15-5023exmeawyytsSqcg L SchwabFacility:FT FM BellevueStart: 03-19-2023 End: 95-03-9883kfwmgdvdkaMsuwxVernell Calix MD Work Phone: Hematology/OncologyComment on above:Primary hypercoagulable state (HCC) (Primary Dx); Iron deficiency anemia secondary to blood loss (chronic); Vitamin D deficiency; CVA, old, speech/language deficit; Antiphospholipid antibody syndrome (HCC)Start: 03-19-2023 End: 28-55-7586Vulrewitahzi consultation with Sogn Calix MD Work Phone: SANDUSKYStart: 02-15-2023 End: 67-56-3460zvjuwzncysCcpsh A KAPLEFacility:[facility] PCStart: 02-15-2023 End: 38-04-7621Sylsjop encounter procedureScomike CASAS [phone]-BgomdMercy Health St. [facility] Start: 22-13-1415kxdcymqzsqYxkpm A KAPLE Facility:[facility] PCStart: 12-26-2022 End: 40-76-0887vvruawjqsqLlbxjfs Grace MisslerFacility:[facility] PCStart: 12-26-2022 End: 72-84-1290Iubvfrh encounter procedureLourdes Garber [phone]-SigehMercy Health St. [facility] Start: 12-22-2022 End: 55-48-5693vekkvrydjaZkolj Abhyankar MD Work Phone: Hematology/OncologyComment on above:Primary hypercoagulable state (HCC) (Primary Dx); Iron deficiency anemia of ; Iron deficiency anemia secondary to blood loss (chronic); Vitamin D deficiencyStart: 12-22-2022 End: 34-55-2420Wybwulzwkubj consultation with Song Calix MD Work Phone: SANDUSKYStart: 88-91-4664Yiucmnrfq encounterKristofer Calix MD Work Phone: Cancer Appts MCComment on above:AppointmentStart: 10-20-2022 End: 07-20-4448Yljlfkn encounter procedureScott A KAPLE [phone]-WujiiMercy Health St. [facility] Start: 09-28-2022 End: 71-04-6603epwnyrhborYedihVernell Calix MD Work Phone: Hematology/OncologyComment on above:Primary hypercoagulable state (HCC); CVA, old, speech/language deficit; Cerebral hyponatremiaStart: 09-28-2022 End: 82-67-4266Phejjqeucpct consultation with Song Calix MD Work Phone: SANDUSKYStart: 09-26-2022 End: 25-55-4520Seettxm encounter procedureKristofer Calix [facility] Start: 78-69-3413Icfxozweg encounterValeri Yeung RN Hematology/OncologyComment on above:OrdersStart: 09-05-2022 End: 54-71-3665Cdrbzyq encounter procedureCorey R MONTEZ [facility] Start: 08-07-2022 End: 65-63-2448Aghzgay encounter procedureCorey R MONTEZ [facility] Start: 07-27-2022 End: 87-46-6632Ychwva outpatient visit 25 minutesKristofer Calix MD Work Phone: Hematology/OncologyComment on above:Primary hypercoagulable state (HCC) (Primary Dx); Iron deficiency anemia secondary to blood loss (chronic); CVA, old, speech/language deficitStart: 89-91-6410TecqfkXapnq Abhyankar MD Work Phone: Hematology/OncologyComment on above:Refill Request Start: 05-16-2022 End: 44-92-8292xqadyflxefOX W[facility]TON FAZIOFacility:J4Zejhz: 05-10-2022 End: 84-90-8773miymzuefiiGW WILTON FAZIOFacility:P8Aialr: 05-08-2022 End: 48-65-3425Ifcpxauavt and management of inpatientDR KALPANA THOMAS Facility:X3Mpguj: 05-05-2022 End: 39-30-5157masylatkozQK KALPANA THOMASFacility:U0Lvfdf: 05-01-2022 End: 19-52-8641mijslfikdjMV WILTON FAZIOFacility:F6Hxred: 04-28-2022 End: 92-07-8802owqztewgtaKU WILTON FAZIOFacility:N9Gzusb: 04-24-2022 End: 76-22-6218ijzpudbmqdEI KALPANA THOMASFacility:I1Mutny: 04-20-2022 End: 24-20-9296vytzyzdjbfZutge 10 Stew Work Phone: Hematology/OncologyComment on above:Iron deficiency anemia secondary to blood loss (chronic) (Primary Dx); Iron deficiency anemia of pregnancyStart: 04-19-2022 End: 30-35-8844wagrevekikCX WILTON FAZIOFacility:E1Vqhqy: 04-14-2022 End: 47-63-5923xfokxrwdtmPC WILTON FAZIOFacility:O4Qovxb: 04-07-2022 End: 56-06-0952vkvoofnpimRI WILTON FAZIOFacility:T6Zxvnn: 08-72-2516SssanxBbjojSalvador Calix MD Work Phone: Hematology/OncologyComment on above:Refill Request Start: 04-05-2022 End: 18-52-2092pbtsocaivnCjban 11 Stew Work Phone: Hematology/OncologyComment on above:Iron deficiency anemia secondary to blood loss (chronic) (Primary Dx); Iron deficiency anemia of pregnancyStart: 84-38-7614Gxaeuwmjt Foster Gonzalez Hematology/OncologyComment on above:Appointment; Patient Question; Medication Question; OrdersStart: 03-31-2022 End: 97-54-8194nybdkvsopcCA WILTON FAZIOFacility:A4Noiro: 03-27-2022 End: 22-77-3464vikvmtwyqdNjssbVernell Calix MD Work Phone: Hematology/OncologyComment on above:Iron deficiency anemia secondary to blood loss (chronic); Iron deficiency anemia of pregnancyStart: 03-27-2022 End: 24-17-9790Nglndip encounter procedureKristofer Calix MD Work Phone: SANDUSKYStart: 23-91-4534Rqmmnnjzt encounterKristofer Calix MD Work Phone: Cancer Appts MCComment on above:ResultsStart: 03-24-2022 End: 86-59-9154ebxapfeugeGE WILTON FAZIOFacility:Y0Zmhvn: 03-16-2022 End: 29-27-9739ashdskusktCC WILTON FAZIOFacility:A2Qbyyu: 02-24-2022 End: 36-73-0675xjsrfcnfcmBH WILTON FAZIOFacility:F3Gmqta: 02-14-2022 End: 69-15-7908eeygneclnlZQ WILTON FAZIOFacility:D2Wmoms: 01-30-2022 End: 74-33-0725mqajdmnwojMdestVernell Calix MD Work Phone: Hematology/OncologyComment on above:Primary hypercoagulable state (HCC) (Primary Dx); CVA, old, speech/language deficit; Antiphospholipid antibody syndrome (HCC); Anemia, unspecified typeStart: 01-30-2022 End: 52-71-1792Pyxsdyx encounter Dionicio Calix MD Work Phone: SANDUSKYStart: 01-24-2022 End: 24-59-9893duahogopsfZY WILTON FAZIOFacility:U0Ntbng: 01-24-2022 End: 46-87-7537mywpxbefxdCP WILTON FAZIOFacility:J4Swjgw: 01-07-2022 End: 37-43-3668hxapkrewuqOA WILTON FAZIOFacility:U2Dokjc: 86-84-1046XnesafOonnfjAwilda Pope RN Work Phone: Hematology/OncologyComment on above:Refill Request Start: 12-28-2021 End: 73-52-3591ggmnqlqguoND WILTON FAZIOFacility:C5Xojue: 11-21-2021 End: 12-01-3505iyuabybutcODQSU A KAPLETrinity Health System West Campustart: 11-21-2021 End: 75-26-2970Arojzdcmxb hospital visit by Sean Casas Work Phone: stVZ LaboratoryStart: 11-14-2021 End: 44-50-7518Wvsezmi encounter procedureSMarymount Hospital Start: 49-56-6021vmpbligmokEW WILTON FAZIOFacility:H1 Start: 10-25-2021 End: 71-79-1353yovqsjfitvJN WILTON FAZIOFacility:S0Uemyw: 10-50-9569OoghfuNlefu Nickelson RNHematology/OncologyComment on above:Refill RequestStart: 09-23-2021 End: 46-38-3990pfharzqgfnOS WILTON FAZIOFacility:M7Grooe: 10-14-2239Nibyurwxl encounterMeme Easton RNHematology/OncologyComment on above:Medication QuestionStart: 86-69-9124Ajewsmero encounterMeme Easton 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 instructor/OncologyComment on above:Patient QuestionStart: 09-01-2021 End: 83-67-3986gnkikwdpznNB WILTON FAZIOFacility:R8Yxsya: 08-31-2021 End: 91-55-7033Vrhhvyh encounter Coreen CASAS [facility] Start: 08-29-2021 End: 69-34-4394ibgeogfilwDK WILTON FAZIOFacility:N8Wadiq: 08-26-2021 End: 04-22-6472bvqvvlafcpNU WILTON FAZIOFacility:S0Mypyc: 08-24-2021 End: 15-01-4527nqextjrfpyOA WILTON FAZIOFacility:D0Zylke: 06-32-0907Btwwunyoq encounterMeme Easton RNHematology/OncologyComment on above:Patient Question Start: 08-19-2021 End: 71-25-7602Peiuahv encounter procedurePERNELL LONGORIA [facility] Start: 08-19-2021 End: 73-32-2844Gyk Drop offPERNELL LONGORIA [facility] Start: 08-19-2021 End: 08-78-7734Kikrcqr encounter procedurePERNELL LONGORIA [phone]-MdgkdMer[facility] Health [facility] [place] Start: 06-22-0632Ojlhvgjwu encounterKristofer Calix MD Work Phone: Cancer Appts MCComment on above:Future Appointment Start: 08-01-2021 End: 36-01-4718Gorcavi evaluation of patient and reportMa Nurse Delgado Golden Work Phone: Hematology/OncologyComment on above:Infective urethritis (Primary Dx)Start: 23-02-8017Qlkoiyb encounter procedureHaseeb MorelFacility:[facility] BStart: 93-26-3994Djejogh encounter procedure ERIKA LONDONFacility:9459Start: 05-25-2017 End: 70-64-0183PqlcgtwprgGAAWE R [facility] Procedures DateProcedureProcedure DetailPerforming ClinicianStart: 38-00-2606YR OB BPP W NON-STRESSCorey Montez DO Work Phone: Start: 08-56-4603XK OB BPP W NON-STRESSCorey Montez DO Work Phone: Start: 63-08-0524Stxnt dip stick/tablet rgnt non-auto w/o micrscpCorey Montez DO Work Phone: Start: 47-54-6092QW OB BPP W NON-STRESSCorey Montez DO Work Phone: Start: 49-26-1874AV OB GROWTHCorey Montez DO Work Phone: Start: 95-86-9682DNL CBC WITH AUTO DIFFCorey Montez DO Work Phone: [phone]: 87-31-9389Raimx dip stick/tablet rgnt non-auto w/o micrscpCorey Omntez DO Work Phone: Start: 92-58-8150Qjxlx dip stick/tablet rgnt non-auto w/o micrscpCorey Montez DO Work Phone: Start: 40-77-7389Gaaea dip stick/tablet rgnt non-auto w/o micrscpCorey Montez DO Work Phone: Start: 66-90-5792CQ OB CERVICAL LENGTHCorey Montez DO Work Phone: Start: 83-13-0756KWR UA (CLEAN/CATCH) MANAGER INTEGRITY/MICRO IF IND.Wilton Montez DO Work Phone: Start: 86-16-8090WND THYROID STIM HORMONECorey Montez DO Work Phone: Start: 69-69-6745Wcxju dip stick/tablet rgnt non-auto w/o micrscpCorey Montez DO Work Phone: Start: 26-37-1590Rdcur dip stick/tablet rgnt non-auto w/o micrscpCorey Montez DO Work Phone: Start: 96-98-8453Upobzlq quantitative blood xcpt reagent stripCharles Cortes MD Work Phone: Start: 21-60-4623Ijopf dip stick/tablet rgnt non-auto w/o micrscpCorey Montez DO Work Phone: Start: 78-05-5381Sevgf of thyroid stimulating hormone tshNot In System Ref ProvStart: 34-74-2369Jojyzhyx screenMukul Noyola MD Work Phone: Start: 38-91-4553Ohwf scrn 1+ class nonchromoNot In System Ref ProvStart: 26-82-4461Rprjuwivwj glycosylated o7oUqkbknry Provider ExternalStart: 61-12-6005DPT 1&2 AB/AG SCREEN (P24 AG)Not In System Ref Prov Start: 49-05-0381Ewdf ia hepatitis b surface antigenNot In System Ref ProvStart: 20-80-0665RCMA AND SCREENNot In System Ref ProvStart: 50-11-3681IHX CBC WITH AUTO DIFFCorey Montez DO Work Phone: Start: 98-63-9569Pkjyk dip stick/tablet rgnt non-auto w/o micrscpCorey Montez DO Work Phone: Start: 58-97-9688KD OB TRANSVAGINALCorey Montez DO Work Phone: Start: 27-57-4995Cmjuv test visual color cmprsn methsCorey Montez DO Work Phone: Start: 57-01-3134LEXELXUGS VAGINITIS (HTRX)Wilton Montez DO Work Phone: Start: 80-38-0021Xvqof dip stick/tablet rgnt non-auto w/o micrscpCorey Montez DO Work Phone: Start: 87-82-4484BS PELVISCorey Montez DO Work Phone: Start: 15-42-2739Gv uterus limited 1/> fetusesCorey Montez DO Work Phone: Start: 46-89-5666PFV CBC WITH AUTO DIFFCorey Montez DO Work Phone: Start: 35-13-1094EQP IMMUNOGLOBULIN GCorey Montez DO Work Phone: Start: 60-07-0233STY IMMUNOGLOBULIN MCorey Montez DO Work Phone: Start: 70-25-9977FGB MISCELLANEOUS TESTCorey Montez DO Work Phone: Start: 61-68-2174DOR APTTCorey Montez DO Work Phone: Start: 13-87-2281ZXEMHP V LEIDEN MUTATIONCorey Montez DO Work Phone: Start: 70-78-2478XXZQD HOMOCYSTEINECorey Montez DO Work Phone: Start: 75-80-3983HNTT FIBRINOGENCorey Montez DO Work Phone: Start: 10-17-3940HENEBVP C-FUNCTIONALCorey Montez DO Work Phone: Start: 00-72-1859IQUTQKB S-ANTIGENCorey Montez DO Work Phone: Start: 07-49-3768BABTNE PROTHROMBIN TIME INR W/O COUM Wilton Montez DO Work Phone: Start: 24-63-6669WXZ ANTITHROMBIN ACTIVITYCorey Montez DO Work Phone: Start: 23-88-5310Jloss dip stick/tablet rgnt non-auto w/o micrscpCorey Montez DO Work Phone: Start: 74-47-0405NUL TESTCorey Montez DO Work Phone: Start: 26-15-1479RJL DRUG SCREEN RAPID (URINE)Wilton Montez DO Work Phone: Start: 46-10-2129WY OB TRANSVAGINALCorey Montez DO Work Phone: Start: 04-04-2024 End: 16-12-5719Tsjvz dip stick/tablet rgnt non-auto w/o micrscpCorey Montez DO Work Phone: Start: 86-76-6139Kbhhybi refused by patient Immunization not carried out because of patient decisionNoms NurseStart: 07-96-1154Amdqnjbq of Products of Conception, External ApproachDR WILTON HERRMANN Start: 86-34-0670Qsff bld gluc mntr dev cleared fda spec home useCcf Provider Start: 21-16-5674Yomtaviagyz observation [Identifier] in Cervix by Cyto stain Wilton Herrmann DO Work Phone: Start: 11-21-2021 End: 61-03-8424Matyf-fetoprotein serumScanning Provider ExternalStart: 11-21-2021 End: 25-56-6506WDHSZMY STUDY NON-PROMEDICAScanning Provider ExternalStart: 70-25-6242BEOCSVACXTQQE TESTINGSraubrie Mullins MD Work Phone: Start: 86-18-3994Gpumq depression screening assessment Nevin Golden Work Phone: Start: 95-87-9455EQS CULTUREDHRUV PATELStart: 01-70-3229TGCDICXCK PATELStart: 12-54-8469UYF CELL COUNT WITH DIFFERENTIALDHRUV PATELStart: 35-97-1208XKWSIYA SIMPSON VIRUS PCRDHRUV PATELStart: 01-18-0828XUYAKOH, CSFDHRUV PATELStart: 63-61-5647AGATER BASIC PROTEIN, CSFDHRUV PATELStart: 66-24-3357NADFQAEQUPM BANDINGDHRUV PATELStart: 70-73-2045IFNBIWU, CSFDHRUV MONGE Start: 98-96-6406NUPICIS-INRDHRUV PATELStart: 18-06-1335Rbizub puncture lumbar diagnosticDHRUV PATELStart: 21-89-6358WDBRWQLOIKSODVUQ ANTIBODY PANELDHRUV MONGE Start: 73-20-8519BICZFJLKNXR AB IGG, IGM, IGADHRUV PATELStart: 83-72-2368VUUSMRH PATELStart: 53-36-9619DTKOVUFYFWCO, SERUMDHRUV PATELStart: 72-44-6873ABMX ARUP 1DHRUV PATELStart: 22-94-4474NKXOSAQEOVW PATELStart: 32-00-0480EJUQZQIUKGUX PATELStart: 29-99-5074Ckfpnl of breastDERIK SIDELL Start: 71-43-8201Bqfhumyxay of wisdom toothDERIK SIDELL endoscopy for ovarian cysts to drainDERIK SIDELL Vaccine refused by patientCOVID-19 vaccine dose declined( Confirmed )PERNELL SIDELL Plan of Treatment DateCare ActivityDetailAuthorStart: 05-42-7066DVM Vaccine (1 - 1-dose 75+ series)RSV Vaccine (1 - 1-dose 75+ series)[facility] Centertart: 77-54-2955Iystt BMI ScreeningAdult BMI ScreeningHocking Valley Community Hospital SystemStart: 83-16-8099Kassuav ScreeningTobacco ScreeningHocking Valley Community Hospital SystemStart: 28-68-7028Xfljcwt ScreeningTobacco ScreeningHocking Valley Community Hospital SystemStart: 01-05-2026 End: 07-80-3089MN MFM with or without consultUS MFM with or without consult Imaging Routine Multigravida of advanced maternal age in second trimester Antiphospholipid syndrome complicating , antepartum Gestational diabetes mellitus (GDM) in second trimester controlled on oral hypoglycemic drug AMA (advanced maternal age) cvddbbprcvpy78+, second trimester Hypothyroidism, unspecified type History of stroke History of loss in prior , currently in second trimester Hypothyroidism affecting in second trimester Family history of autism Hyponatremia Expected: 01/05/2026 (Approximate), Expires: 01/05/2026[employer] Work Phone: comment on above:Expected: 01/05/2026 (Approximate), Expires: 01/05/2026Start: 17-95-3930Xsvkv BMI ScreeningAdult BMI Screening [facility] SystemStart: 10-15-9220Qgxqzsi ScreeningTobacco Screening [facility] SystemStart: 36-73-7808Cryhk BMI ScreeningAdult BMI Screening [facility] SystemStart: 04-07-2025 End: 92-55-1623Nfembwhfwqvx consultation with xromrym6004/07/2025 1:30 PM EST Telemedicine Maternal- Medicine at [facility] [address] [facility] [place] [phone] Roxana Mays PA-C [address] [place] [address] M[facility] at [facility] HospitalStart: 03-17-2025 End: 79-26-0136Tbtkkqtorpsm consultation with getldej3503/17/2025 8:30 AM EST Telemedicine [facility] Rheumatology, A Department of [address] [address] Sam Callahan MD [address] [address] [facility], A Department of [facility] HospitalStart: 03-10-2025 End: 94-46-1377Nxkiwuf encounter dcgadncbn18/11/2025 9:50 AM EST Routine NOMJaylan COLVIN [address] [place], [id number] Wilton Herrmann DO [address] [address] NOMS Piyush OBGYNStart: 03-10-2025 End: 11-74-9945Orrvjflplevx consultation with dfbdekd6503/10/2025 8:00 AM EST Telemedicine Maternal- Medicine at [facility] [address] [facility] [place] [phone] Sana Palma MD [address] [place] [address] [facility] at [facility]art: 69-37-9784FUY ( or age 60+ yrs) (1 - Risk 1-dose series)RSV ( or age 60+ yrs) (1 - Risk 1- dose series)[facility] SystemStart: 03-02-2025 End: 39-74-1717Dfabgr-up acygmmzvk84/03/2025 11:30 AM EST Visit (SP) Office Hematology/Oncology [address] [place] [address] Katherine Negrete APRN.MASTER CONTROL TECHNICIAN [address] [place] [address] 2 month follow upHematology/OncologyComment on above:2 month follow upStart: 03-02-2025 End: 94-82-5794Ugbnfsn encounter mpxutcssk37/03/2025 11:15 AM EST Office Visit [facility] [address] [place] [address] labNortSinai-Grace Hospital LaboratoryComment on above:labStart: 02-23-2025 End: 72-75-0965Fqbsbio encounter yhdighvdj87/27/2025 9:00 AM EDT Routine NOMJaylan ROBBGYN [address] [place], [id number] Wilton Herrmann DO [address] [place] [address] SHILOH [place] OBGYNStart: 02-18-2025 End: 57-13-6816ULU W Auto Differential panel - BloodCOMPLETE BLOOD COUNT AND DIFFERENTIAL Lab Routine 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) Vitamin D deficiency Primary hypercoagulable state (HCC) Expected: 02/18/2025, Expires: 05/20/2025leveland ClinicComment on above:Expected: 02/18/2025, Expires: 05/20/2025Start: 02-18-2025 End: 12-16-3572Bpyhgyinwqhja metabolic 2000 panel - Serum or PlasmaCOMPREHENSIVE METABOLIC PANEL Lab Routine Antiphospholipid antibody positive Iron deficiency anemiasecondary to blood loss (chronic) Vitamin D deficiency Primary hypercoagulable state (HCC) Expected: 02/18/2025, Expires: 05/20/2025leveland ClinicComment on above:Expected: 02/18/2025, Expires: 05/20/2025Start: 02-16-2025 End: 50-03-5975Zazfaik encounter procedureProMedica Rheumatology, A Department of [facility] Hospitaltart: 47-87-3431Ivqcixlhn for malignant neoplasm of cervixNOMS HealthcareStart: 02-09-2025 End: 48-56-4750KN biophysical profile w non stress testUS biophysical profile w non stress test Imaging Routine Third trimester (HHS-HCC) 28 weeks gestation of (HHS-HCC) Anemia complicating childbirth (HHS-HCC) Anticoagulant long-term use Antiphospholipid antibody positive Blood pressure elevated without history of HTN Coagulation defect, unspecified (HHS-HCC) Expected: 02/09/2025 (Approximate), Expires: 08/10/2025 NOM[facility] HealthcareComment on above:Expected: 02/09/2025 (Approximate), Expires: 08/10/2025Start: 02-09-2025 End: 89-45-9570YM for pregnancyUS OB follow up transabdominal approach Imaging Routine Third trimester (HHS-HCC) 28 weeks gestation of (HHS-HCC) Anemia complicating childbirth (HHS-HCC) Anticoagulant long-term use Antiphospholipid antibody positive Blood pressure elevated without history of HTN Coagulation defect, unspecified (HHS-HCC) Expected: 02/09/2025, Expires: 06/12/2025NOMS HealthcareComment on above:Expected: 02/09/2025, Expires: 06/12/2025Start: 02-09-2025 End: 90-63-1028Awlgeop encounter nmrihrhzt20/13/2025 10:30 AM EDT Routine SHILOH COLVIN [address] [facility] [place] [address] Wilton Herrmann DO [address] [place] [address] SHILOH HAMILTONtart: 02-06-2025 End: 66-89-0046Rdshgkvvbbey consultation with muwcieb1002/06/2025 2:00 PM EDT Telemedicine Maternal- Medicine at [facility] [address] [place] [address] Mukul Noyola MD [address] [facility], [address] [place] [address] [facility] at [facility]art: 02-05-2025 End: 93-14-9919Uvqjjkr encounter zmndkgvge75/09/2025 1:00 PM EDT Appointment [facility] [address] [facility] [address] [place] [address] [facility] ValleyStart: 02-01-2025 End: 59-93-7226Dfop complete W/O contrastEcho complete W/O contrast Echocardiography Routine 22 weeks gestation of Antiphospholipid syndrome complicating , antepartum Multigravida of advanced maternal age in second trimester Expected: 02/01/2025 (Approximate), Expires: 01/01/2026 [facility] Work Phone: comment on above:Expected: 02/01/2025 (Approximate), Expires: 01/01/2026Start: 01-19-2025 End: 08-77-5016Ekousbx encounter sguflpniu20/22/2025 9:00 AM EDT Routine NOMJaylan COLVIN [address] [facility] [address] [place], [id number] Wilton Herrmann DO [address] [facility] [place] [address] SHILOH HAMILTONtart: 01-13-2025 End: 88-54-3638Btbvwjezqcaa consultation with zwhpqli4201/13/2025 10:00 AM EDT Telemedicine Maternal- Medicine at [facility] [address] [place] [address] Roxana Mays, PAPilyC [address] [place] [address], [id number] [facility]: 01-05-2025 End: 91-62-2241Lhtnvts encounter ketopsjmg44/08/2025 2:40 PM EDT Routine NOMS Piyush OBGYN [address] [facility] [address] [place], [id number] Wilton Herrmann DO [address] [address] NOMS Piyush OBGYNStart: 01-05-2025 End: lead ECGECG 12 lead unit performed ECG Routine Thyroid disease Gestational diabetes mellitus (GDM), antepartum, gestational diabetes method of control unspecified (HHS-HCC) Multigravida of advanced maternal age in second trimester (HHS-HCC) Lightheaded Dizziness Expected: 01/05/2025 (Approximate), Expires:01/05/2026NOMS HealthcareComment on above:Expected: 01/05/2025 (Approximate), Expires: 01/05/2026Start: 01-05-2025 End: 09-11-6714Xnchppwkpkfann 2D completeEchocardiogram 2D complete Echocardiography Routine Thyroid disease Gestational diabetes mellitus (GDM), antepartum, gestational diabetes method of control unspecified (HHS-HCC) Multigravida of advanced maternal age in second trimester (HHS-HCC) Lightheaded Dizziness Expected: 01/05/2025 (Approximate), Expires: 01/05/2027[facility] Work Phone: comment on above:Expected: 01/05/2025 (Approximate), Expires: 01/05/2027Start: 01-01-2025 End: 32-76-5458Afultzwxldcx consultation with hhkbwqd3301/01/2025 2:30 PM EDT Telemedicine [facility] [address] [facility] [address] [place] [address] Mukul Noyola MD [address] [facility], [address] [place] [address] [facility]Start: 01-01-2025 End: 63-29-7360DF MFM with or without consultUS MFM with [...] on above:Expected: 01/01/2025, Expires: 01/01/2026Start: 01-01-2025 End: 53-77-3992Kyromnq encounter bqjizppcl16/04/2025 1:00 PM EDT Appointment [facility] [address] [address] M[facility] Medicine ValleyStart: 12-29-2024 COVID-19 Vaccine ( season)COVID-19 Vaccine ( season)[facility] HospitalStart: 84-61-3207Oigfyrgqk vaccinationUniversity Hospitals TriPoint Medical Centertart: 12-24-2024 End: 79-12-4276TIE W Auto Differential panel - BloodCOMPLETE BLOOD COUNT AND DIFFERENTIAL Lab Routine Primary hypercoagulable state (HCC) CVA, old, spee ch/language deficit Cerebral hyponatremia Personal history of TIA (transient ischemic attack) Expected: 12/24/2024, Expires: 03/25/2025[facility] Work Phone: Comment on above:Expected: 12/24/2024, Expires: 03/25/2025Start: 12-24-2024 End: 05-30-3947Qjkykkswr (Vitamin B12) [Mass/volume] in Serum or PlasmaVITAMIN B12 Lab Routine Primary hypercoagulable state (HCC) CVA, old, speech/language deficit Cerebral hyponatremia Personal history of TIA (transient ischemic attack) Expected: 12/24/2024, Expires: 03/25/2025leveland ClinicComment on above:Expected: 12/24/2024, Expires: 03/25/2025Start: 12-24-2024 End: 88-75-0692Qgmxmbwlgfdbm metabolic 2000 panel - Serum or PlasmaCOMPREHENSIVE METABOLIC PANEL Lab Routine Primary hypercoagulable state (HCC) CVA, old, speech/language deficit Cerebral hyponatremia Personal history of TIA (transient ischemic attack) Expected: 12/24/2024, Expires: 03/25/2025[facility] Comment on above:Expected: 12/24/2024, Expires: 03/25/2025Start: 12-24-2024 End: 54-67-2274Zdlfkbca [Mass/volume] in Serum or PlasmaFERRITIN Lab Routine Primary hypercoagulable state (HCC) CVA, old, speech/language deficit Cerebral hyponatremia Personal history of TIA (transient ischemic attack) Expected: 12/24/2024, Expires: 03/25/2025leveland ClinicComment on above:Expected: 12/24/2024, Expires: 03/25/2025Start: 12-24-2024 End: 35-54-8408Ndtj and Iron binding capacity panel - Serum or PlasmaIRON AND TIBC Lab Routine Primary hypercoagulable state (HCC) CVA, old, speech/language deficit Cerebral hyponatremia Personal history of TIA (transient ischemic attack) Expected: 12/24/2024, Expires: 03/25/2025leveland ClinicComment on above:Expected: 12/24/2024, Expires: 03/25/2025Start: 12-23-2024 End: 225822-vugbnvsvoilmsu D3 [Mass/volume] in Serum or PlasmaVITAMIN D 25 HYDROXY Lab Routine 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) Vitamin D deficiency Expected: 12/23/2024, Expires: 03/24/2025[facility]and [facility] Work Phone: Comment on above:Expected: 12/23/2024, Expires: 03/24/2025Start: 12-22-2024 End: 75-01-9878Ueylmj-up owsqfbwkt75/25/2025 1:30 PM EDT Visit (SP) Office Hematology/Oncology [address] [place] [phone] Katherine Negrete CASING INSPECTOR.MASTER CONTROL TECHNICIAN [address] [place] [address] 8 week follow up labHematology/OncologyComment on above:8 week follow up labStart: 12-22-2024 End: 76-97-9729Azosapl encounter jkbmewsrb67/25/2025 1:15 PM EDT Office Visit [facility] [address] [place], [place] [address], [place] [address] 8 week follow up labNortSinai-Grace Hospital LaboratoryComment on above:8 week follow up labStart: 12-17-2024 End: 75-70-3244Hdbegvjlavwj consultation with udxctyg4312/17/2024 1:30 PM EDT Telemedicine Maternal- Medicine at [facility] [address] [place] [address] Alisa Saba, CASING INSPECTOR-MASTER CONTROL TECHNICIAN [address] [place] [address] [facility]: 12-11-2024 End: 17-33-8742Uhzbxnn encounter /14/2025 9:10 AM EDT Routine NOMS Piyush COLVIN [address] [place], [id number] Wilton Herrmann DO [address] [place] [address] NOMS Piyush ROBBGYNStart: 12-03-2024 End: 88-13-1937Tnnqyhrcgplj consultation with utrboax9312/03/2024 2:00 PM EDT Telemedicine Maternal- Medicine at [facility] [address] [place] [address] Alisa Saba, VICTOR HUGO-MASTER CONTROL TECH[employer]ICIAN [address] [place] [address] [facility] 11-20-2024 End: 78-18-7854Rzdfa fetoprotein, maternalAlpha fetoprotein, maternal Lab Routine Second trimester ([facility]) Expected: 11/20/2024 (Approximate), Expires: 01/21/2025NOMS HealthcareComment on above:Expected: 11/20/2024 (Approximate), Expires: 01/21/2025Start: 11-20-2024 End: 67-13-2179Qobfrvj encounter cwlhtrzpu87/24/2025 10:10 AM EDT Routine [facility] BCP OB [address] [facility] [place] [address] Wilton Herrmann, DO [address] [facility] [address] [place] [address] N[facility] BCP OBStart: 11-19-2024 End: 70-20-0937wpimddncgh22/23/2025 9:30 AM EDT Support Visit Maternal- Medicine at The [facility] [address] [place] [phone] Lorena Enciso, RN [address] [facility], [address] [place] [address], [place] [address] Stephanie Quiros LD Fischer, Kelli, JERONIMO [address] [facility] [place] TRISH, [address] [facility] [place] [address] [facility]: 11-12-2024 End: 61-59-4861NC MFM with or without consultUS MFM with or without consult Imaging Routine Gestational diabetes mellitus (GDM), antepartum, gestational diabetes method of control unspecified Expected: 11/12/2024 (Approximate), Expires: 10/13/2025[facility] Work Phone: comment on above:Expected: 11/12/2024 (Approximate), Expires: 10/13/2025Start: 10-30-2024 End: 65-68-8363Xadzxpq encounter xnczrubbk47/03/2025 10:40 AM EDT Routine [facility] [address] [facility] [place] [phone] Wilton Herrmann, DO [address] [place] [address] [facility] BCP OBStart: 10-30-2024 End: 93-56-5396Idmmqof encounter ouurvdhaf54/03/2025 9:30 AM EDT Routine [facility] [address] [place] [phone] Wilton Herrmann, DO [address] [place] [address] ArrivedNOMS BCP OBComment on above: ArrivedStart: 10-28-2024 End: 74-18-9018Pkvrvp-up /01/2025 2:30 PM EDT Visit (SP) Office Hematology/Oncology [address] [place], [place] [phone] Katherine Negrete, CASING INSPECTOR.MASTER CONTROL TECHNICIAN [address] [place] [address] 3 month follow upHematology/OncologyComment on above:3 month follow upStart: 10-28-2024 End: 88-21-6597Jyuslpw encounter /01/2025 2:15 PM EDT Office Visit [facility] [address] [place] [address] labs - patient prefers to come same dayNortMer[facility] LaboratoryComment on above:labs - patient prefers to come same day Start: 10-27-2024 End: 73-44-6156Prjiupr encounter gbvckudif92/30/2025 9:20 AM EDT Office Visit [facility] [address] [facility] [place] [phone] Wilton Herrmann, DO [address] [facility] [place] [address] [facility] OBStart: 10-20-2024 End: 62-58-5018Elyfqscupuiv / ancillary services vgcertsvkd83/23/2025 1:00 PM EDT Ancillary Procedure [facility] [address] [facility] [place] [address] [facility] BCP OBStart: 10-10-2024 End: 56-24-1797Bvevxe-up vaxmylfca80/13/2025 10:40 AM EDT Visit (SP) Office Hematology/Oncology [address] [facility] [place] [address] Kristofer Calix MD [address] [facility] [place] [address] 3 month follow upHematology/OncologyComment on above:3 month follow upStart: 10-10-2024 End: 26-28-9600Wxozrsg encounter ybopkxbkz56/13/2025 10:15 AM EDT Office Visit [facility] [address] [place] [address] labs - patient prefers to come same dayShriners Hospital LaboratoryComment on above:labs - patient prefers to come same day Start: 10-02-2024 End: 06-34-1791ZAU/RhABO/Rh Lab Routine Missed menses , unspecified gestational age Expected: 10/02/2024 (Approximate), Expires: 10/02/2025[facility] HealthcareComment on above:Expected: 10/02/2024 (Approximate), Expires: 10/02/2025Start: 10-02-2024 End: 76-73-3206Kswvy type and Indirect antibody screen panel - BloodType and screen Lab Routine Missed menses , unspecified gestational age Expected: 10/02/2024 (Approximate), Expires: 10/02/2025[facility] Work Phone: comment on above:Expected: 10/02/2024 (Approximate), Expires: 10/02/2025Start: 10-02-2024 End: 51-85-8831Ysbet of abuse panel - Urine by Screen methodRapid drug screen, urine Lab Routine , unspecified gestational age Encounter for supervision of normal first in first trimester Expected: 10/02/2024 (Approximate), Expires: 10/02/2025[facility] HealthcareComment on above:Expected: 10/02/2024 (Approximate), Expires: 10/02/2025Start: 10-02-2024 End: 09-84-5695xnqsfmvrso26/05/2025 1:00 PM EDT Initial [facility] [place] [address] NQBB BCP OBStart: 10-02-2024 End: 82-88-0289Klpzzxgnoscv / ancillary services exyhumbcpj28/05/2025 12:30 PM EDT Ancillary Procedure [facility] OB [facility] [address] [place] [phone] FOFA BCP OBStart: 08-27-2024 End: 32-95-1740Qjtfpg-up lzrgasquq19/30/2025 2:00 PM EDT Visit (SP) Office Hematology/Oncology [address] [place] [address] [address] [place], [place] [phone] Kristofer Calix MD [address] [place] [address] 3 month follow upHematology/OncologyComment on above:3 month follow upStart: 08-27-2024 End: 01-58-7780Uuwoxgf encounter uqdjznrbm51/30/2025 1:45 PM EDT Office Visit [facility] [address] [place] [address] labs - patient prefers to come same dayShriners Hospital LaboratoryComment on above:labs - patient prefers to come same day Start: 08-26-2024 End: 752456-ovonyskhdugcka D3 [Mass/volume] in Serum or PlasmaVITAMIN D 25 HYDROXY Lab Routine 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 Vitamin D deficiency Expected: 08/26/2024, Expires: 11/25/2024[facility] ClinicComment on above: Expected: 08/26/2024, Expires: 11/25/2024Start: 08-26-2024 End: 29-02-4586GUG W Auto Differential panel - BloodCOMPLETE BLOOD COUNT AND DIFFERENTIAL Lab Routine 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 Vitamin D deficiency Expected: 08/26/2024, Expires: 11/25/2024[facility] Work Phone: Comment on above:Expected: 08/26/2024, Expires: 11/25/2024Start: 08-26-2024 End: 99-77-1673Cyrwfgntb (Vitamin B12) [Mass/volume] in Serum or PlasmaVITAMIN B12 Lab Routine 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 Vitamin D deficiency Expected: 08/26/2024, Expires: 11/25/2024[facility] ClinicComment on above: Expected: 08/26/2024, Expires: 11/25/2024Start: 08-26-2024 End: 62-15-1753Sjelcksrydcpm metabolic 2000 panel - Serum or PlasmaCOMPREHENSIVE METABOLIC PANEL Lab Routine Antiphospholipid antibody positive Iron deficiency anemiasecondary to blood loss (chronic) Malaise and fatigue Vitamin D deficiency Expected: 08/26/2024, Expires: 11/25/2024[facility] ClinicComment on above: Expected: 08/26/2024, Expires: 11/25/2024Start: 08-26-2024 End: 86-18-8864Fotrmtio [Mass/volume] in Serum or PlasmaFERRITIN Lab Routine 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) Malaise and fatigue Vitamin D deficiency Expected: 08/26/2024, Expires: 11/25/2024[facility] ClinicComment on above:Expected: 08/26/2024, Expires: 11/25/2024Start: 08-26-2024 End: 56-68-5780Vybk and Iron binding capacity panel - Serum or PlasmaIRON AND TIBC Lab Routine 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 Vitamin D deficiency Expected: 08/26/2024, Expires: 11/25/2024[facility] ClinicComment on above: Expected: 08/26/2024, Expires: 11/25/2024Start: 08-26-2024 End: 02-69-9830Lofkadpuzdf [Units/volume] in Serum or PlasmaTHYROID STIMULATING HORMONE Lab Routine Antiphospholipid antibody positive 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) Malaise and fatigue Vitamin D deficiency Expected: 08/26/2024, Expires: 11/25/2024[facility] ClinicComment on above: Expected: 08/26/2024, Expires: 11/25/2024Start: 07-24-2024 End: 84-97-1664ZsgcrgjssuatGoruygnjckeu Lab Routine Irregular menstrual cycle Expected: 07/24/2024 (Approximate), Expires: 07/24/2025[facility] Work Phone: comment on above:Expected: 07/24/2024 (Approximate), Expires: 07/24/2025Start: 44-51-2545CKiH,Tdap and Td Vaccines (2 - Td or Tdap) DTaP,Tdap and Td Vaccines (2 - Td or Tdap)[email or web address] SystemStart: 89-89-0896RRzM/Tdap/Td vaccine (2 - Td or Tdap)DTaP/Tdap/Td vaccine (2 - Td or Tdap)[facility]Start: 06-53-3130Cgfvl microalbumin profile [facility] Centertart: 06-23-2024 End: 62-53-7780CI PelvisUS Pelvis w/ TV Imaging Routine Vaginal bleeding Vaginal discharge Pelvic pain in female Expected: 06/23/2024, Expires: 06/23/2025N[facility] HealthcareComment on above:Expected: 06/23/2024, Expires: 06/23/2025Start: 06-02-2024 End: 86-62-9556Btmkhuo encounter /03/2025 11:20 AM EST Office Visit [facility] [address] [facility] [place] [phone] Wilton Herrmann, [address] [place] [address] [facility] BCP OBStart: 05-21-2024 End: 32-07-3493Pehzzw-up rktgtlxuu17/22/2025 2:20 PM EST Visit (SP) Office Hematology/Oncology [address] [facility] [address] [place], [place] [phone] Kristofer Calix MD [address] [facility] [place] [address] 3 month follow up with labHematology/OncologyComment on above:3 month follow up with labStart: 05-21-2024 End: 71-13-3317Yhysdxk encounter pdvxnfudm95/22/2025 2:00 PM EST Office Visit [facility] [address] [facility] [place] [address] 3 month follow up with labNortSinai-Grace Hospital LaboratoryComment on above:3 month follow up with labStart: 05-06-2024 End: 82-20-7814ET for pregnancyNOMS Healthcare Work Phone: comment on above:Expected: 05/06/2024, Expires: 05/06/2025Start: 05-06-2024 End: 24-19-1736Oxwtknk encounter ewpuyxeat04/07/2025 1:50 PM EST Routine [facility] [address] [facility] [place] [phone] Wilton Herrmann [address] [place] [address] [facility] BCP OBStart: 04-09-2024 End: 20-90-2377Ywykgl-up encounterHematology/OncologyComment on above:3 month follow up with labStart: 04-09-2024 End: 12-83-9450Qlrfugp encounter procedureShriners Hospital LaboratoryComment on above:3 month follow up with labStart: 04-04-2024 End: 31-84-2523KCS/RhABO/Rh Lab Routine Missed menses , unspecified gestational age Expected: 04/04/2024 (Approximate), Expires: 04/04/2025[facility] HealthcareComment on above:Expected: 04/04/2024 (Approximate), Expires: 04/04/2025Start: 04-04-2024 End: 06-32-6418Zcbpu type and Indirect antibody screen panel - BloodType and screen Lab Routine Missed menses , unspecified gestational age Expected: 04/04/2024 (Approximate), Expires: 04/04/2025[facility] Work Phone: comment on above:Expected: 04/04/2024 (Approximate), Expires: 04/04/2025Start: 04-04-2024 End: 89-95-4991Opizx of abuse panel - Urine by Screen methodRapid drug screen, urine Lab Routine , unspecified gestational age Encounter for supervision of normal first in first trimester Expected: 04/04/2024 (Approximate), Expires: 04/04/2025[facility] HealthcareComment on above:Expected: 04/04/2024 (Approximate), Expires: 04/04/2025Start: 04-04-2024 End: 93-38-8104LD Pelvis transvaginalUS OB transvaginal Imaging Routine Missed menses Expected: 04/04/2024 (Approximate), Expires: 04/04/2025[facility] Healthcare Comment on above:Expected: 04/04/2024 (Approximate), Expires: 04/04/2025Start: 04-02-2024 End: 882613-arwoxujxwhjmpo D3 [Mass/volume] in Serum or PlasmaVITAMIN D 25 HYDROXY Lab Routine Iron deficiency anemia secondary to blood loss (chronic) Vitamin Ddeficiency Malaise and fatigue Expected: 04/02/2024 (Approximate), Expires: 07/02/2024[facility] ClinicComment on above:Expected: 04/02/2024 (Approximate), Expires: 07/02/2024Start: 04-02-2024 End: 07-14-4860LMI W Auto Differential panel - BloodCOMPLETE BLOOD COUNT AND DIFFERENTIAL Lab Routine Iron deficiency anemia secondary to blood loss (ch ronic) Vitamin D deficiency Malaise and fatigue Expected: 04/02/2024 (Approximate), Expires: 01/01/2025[facility] ClinicComment on above:Expected: 04/02/2024 (Approximate), Expires: 01/01/2025Start: 04-02-2024 End: 90-11-7112Hjgcjsvys (Vitamin B12) [Mass/volume] in Serum or PlasmaVITAMIN B12 Lab Routine Iron deficiency anemia secondary to blood loss (chronic) Vitamin D deficiency Malaise and fatigue Expected: 04/02/2024 (Approximate), Expires: 01/01/2025[facility] ClinicComment on above:Expected: 04/02/2024 (Approximate), Expires: 01/01/2025Start: 04-02-2024 End: 45-52-7769Qekxpvdeuqcuu metabolic 2000 panel - Serum or PlasmaCOMPREHENSIVE METABOLIC PANEL Lab Routine Iron deficiency anemia secondary to blood loss (chronic) Vitamin D deficiency Malaise and fatigue Expected: 04/02/2024 (Approximate), Expires: 01/01/2025[facility] ClinicComment on above:Expected: 04/02/2024 (Approximate), Expires: 01/01/2025Start: 04-02-2024 End: 99-68-4084Amynzfby [Mass/volume] in Serum or PlasmaFERRITIN Lab Routine Iron deficiency anemia secondary to blood loss (chronic) Vitamin D deficiency M alaise and fatigue Expected: 04/02/2024 (Approximate), Expires: 01/01/2025 [facility]:Expected: 04/02/2024 (Approximate), Expires: 01/01/2025Start: 04-02-2024 End: 46-53-8141Pmqime [Mass/volume] in Serum or PlasmaFOLATE, SERUM Lab Routine Iron deficiency anemia secondary to blood loss (chronic) Vitamin D deficiency Malaise and fatigue Expected: 04/02/2024 (Approximate), Expires: 01/01/2025 [facility]:Expected: 04/02/2024 (Approximate), Expires: 01/01/2025Start: 04-02-2024 End: 35-62-4654Ajld and Iron binding capacity panel - Serum or PlasmaIRON AND TIBC Lab Routine Iron deficiency anemia secondary to blood loss (chronic) Vitamin D deficiency Malaise and fatigue Expected: 04/02/2024 (Approximate), Expires: 01/01/2025[facility] CenterComment [facility] above:Expected: 04/02/2024 (Approximate), Expires: 01/01/2025Start: 04-02-2024 End: 77-81-8288Fdoqujtrncy [Units/volume] in Serum or PlasmaTHYROID STIMULATING HORMONE Lab Routine Iron deficiency anemia secondary to blood loss (chronic) Vit vogel D deficiency Malaise and fatigue Expected: 04/02/2024 (Approximate), Expires: 07/02/2024[facility] Work Phone: Comment on above:Expected: 04/02/2024 (Approximate), Expires: 07/02/2024Start: 01-05-2024 End: 11-72-2051JMK W Auto Differential panel - BloodCOMPLETE BLOOD COUNT AND DIFFERENTIAL Lab Routine Iron deficiency anemia secondary to blood loss (ch ronic) Vitamin D deficiency Malaise and fatigue Expected: 01/05/2024 (Approximate), Expires: 01/01/2025[facility] ClinicComment on above:Expected: 01/05/2024 (Approximate), Expires: 01/01/2025Start: 01-05-2024 End: 09-80-4738Lthqlmifgkrnk metabolic 2000 panel - Serum or PlasmaCOMPREHENSIVE METABOLIC PANEL Lab Routine Iron deficiency anemia secondary to blood loss (chronic) Vitamin D deficiency Malaise and fatigue Expected: 01/05/2024 (Approximate), Expires: 5[facility] ClinicComment on above:Expected: 01/05/2024 (Approximate), Expires: 01/01/2025Start: 01-02-2024 End: 33-45-0416Hlhhvj-up idwbmgran35/04/2024 1:45 PM EDT Visit (SP) Office Hematology/Oncology [address] [facility] [address] [place], [place] [phone] Kristofer Calix MD [address] [place] [address] 8 WEEK FOLLOW UPHematology/OncologyComment on above:8 WEEK FOLLOW UPStart: 01-02-2024 End: 98-49-9626Erwvfgh encounter fimrltteu64/04/2024 1:30 PM EDT Office Visit [facility] [address] [place] [address] 8 WEEK FOLLOW UPNortSinai-Grace Hospital LaboratoryComment on above:8 WEEK FOLLOW UPStart: 90-64-2058Kidir-19 Vaccine ( season)Covid-19 Vaccine ( season)[facility] Cent[facility]art: 47-80-6933Dloqu-19 Vaccine ( season)Covid-19 Vaccine ( season)[facility] Centertart: 27-40-9553Yzupsqbyy vaccinationThe [facility] Hospital Start: 11-29-2023 End: 93-37-2911xykmedltvs28/01/2024 1:30 PM EDT Infusion Center Hematology/Oncology [address] [place] [address] VENOFER 300Hematology/OncologyComment on above:VENOFER 300Start: 11-22-2023 End: 33-93-0814bcnuaokbhe04/25/2024 1:30 PM EDT Infusion Center Hematology/Oncology [address] [place] [address] VENOFER 300Hematology/OncologyComment on above:VENOFER 300Start: 11-15-2023 End: 70-17-8419cpsljkuxkm77/18/2024 1:30 PM EDT Infusion Center Hematology/Oncology [address] [place] [address] [place] [address] VENOFER 300Hematology/OncologyComment on above:VENOFER 300Start: 09-13-2023 End: 43-19-904118788843-zsgrlopexhsuvt D3 [Mass/volume] in Serum or PlasmaVITAMIN D 25 HYDROXY Lab Routine Vitamin D deficiency 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) Expected: 09/13/2023 (Approximate), Expires: 12/13/2023[facility] Work Phone: Comment on above:Expected: 09/13/2023 (Approximate), Expires: 12/13/2023Start: 09-13-2023 End: 96-61-9004Sreyanx.ionized [Moles/volume] in BloodCALCIUM IONIZED BLOOD Lab Routine Vitamin D deficiency 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) Expected: 09/13/2023 (Approximate), Expires: 12/13/2023 [facility] Work Phone: Comment on above:Expected: 09/13/2023 (Approximate), Expires: 12/13/2023Start: 09-13-2023 End: 92-16-0421AWP W Auto Differential panel - BloodCBC + DIFF Lab Routine Vitamin D deficiency 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) Expected: 09/13/2023 (Approximate), Expires: 06/15/2024[facility] Work Phone: Comment on above:Expected: 09/13/2023 (Approximate), Expires: 06/15/2024Start: 09-13-2023 End: 61-86-4513Lnpyjhtgh (Vitamin B12) [Mass/volume] in Serum or PlasmaVITAMIN B12 BLOOD Lab Routine Vitamin D deficiency 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) Expected: 09/13/2023 (Approximate), Expires: 06/15/2024[facility] Work Phone: Comment on above:Expected: 09/13/2023 (Approximate), Expires: 06/15/2024Start: 09-13-2023 End: 34-57-2298Vpmnwhxgwqtch metabolic 2000 panel - Serum or PlasmaCOMP METABOLIC PANEL Lab Routine Vitamin D deficiency 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) Expected: 09/13/2023 (Approximate), Expires: 06/15/2024[facility] Work Phone: Comment on above:Expected: 09/13/2023 (Approximate), Expires: 06/15/2024Start: 09-13-2023 End: 89-50-4684Fyxshkho [Mass/volume] in Serum or PlasmaFERRITIN BLD Lab Routine Vitamin D deficiency 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) Expected: 09/13/2023 (Approximate), Expires: 06/15/2024[facility] Work Phone: Comment on above:Expected: 09/13/2023 (Approximate), Expires: 06/15/2024Start: 09-13-2023 End: 27-29-6770Ooagmh [Mass/volume] in Serum or PlasmaFOLATE SERUM Lab Routine Vitamin D deficiency 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) Expected: 09/13/2023 (Approximate), Expires: 06/15/2024[facility] Work Phone: Comment on above:Expected: 09/13/2023 (Approximate), Expires: 06/15/2024Start: 09-13-2023 End: 67-02-6115Oteh and Iron binding capacity panel - Serum or PlasmaIRON + TIBC Lab Routine Vitamin D deficiency 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) Expected: 09/13/2023 (Approximate), Expires: 06/15/2024 [facility] Work Phone: Comment on above:Expected: 09/13/2023 (Approximate), Expires: 06/15/2024Start: 09-13-2023 End: 61-44-2929Bmvvxenlvm.intact [Mass/volume] in Serum or PlasmaPTH INTACT BLD Lab Routine Vitamin D deficiency 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) Expected: 09/13/2023 (Approximate), Expires: 12/13/2023 [facility] Work Phone: Comment on above:Expected: 09/13/2023 (Approximate), Expires: 12/13/2023Start: 06-15-2023 End: 359405-cswocakcnbudic D3 [Mass/volume] in Serum or PlasmaVITAMIN D 25 HYDROXY Lab Routine Vitamin D deficiency Expected: 06/15/2023 (Approximate), Expires: 09/14/2023[facility] Work Phone: Comment on above:Expected: 06/15/2023 (Approximate), Expires: 09/14/2023Start: 06-15-2023 End: 62-67-6774Hlojebb.ionized [Moles/volume] in BloodCALCIUM IONIZED BLOOD Lab Routine Vitamin D deficiency Hypercalcemia Expected: 06/15/2023 (Approximate), Expires: 09/14/2023[facility] Work Phone: Comment on above:Expected: 06/15/2023 (Approximate), Expires: 09/14/2023Start: 06-15-2023 End: 59-50-9623SHW W Auto Differential panel - BloodCBC + DIFF Lab Routine Iron deficiency anemia secondary to blood loss (chronic) Expected: 06/15/2023 (Approximate), Expires: 06/12/2024[facility] Work Phone: Comment on above:Expected: 06/15/2023 (Approximate), Expires: 06/12/2024Start: 06-15-2023 End: 43-40-8675Mteuatldb (Vitamin B12) [Mass/volume] in Serum or PlasmaVITAMIN B12 BLOOD Lab Routine Iron deficiency anemia secondary to blood loss (chronic) Expected: 06/15/2023 (Approximate), Expires: 06/12/2024[facility] Work Phone: Comment on above:Expected: 06/15/2023 (Approximate), Expires: 06/12/2024Start: 06-15-2023 End: 05-02-2809Vxmytjwwyufws metabolic 2000 panel - Serum or PlasmaCOMP METABOLIC PANEL Lab Routine Iron deficiency anemia secondary to blood loss (chronic) Expected:06/15/2023 (Approximate), Expires: 06/12/2024[facility] Work Phone: Comment on above:Expected: 06/15/2023 (Approximate), Expires: 06/12/2024Start: 06-15-2023 End: 83-91-3071Gtdjyskv [Mass/volume] in Serum or PlasmaFERRITIN BLD Lab Routine Iron deficiency anemia secondary to blood loss (chronic) Expected: 06/15/2023 (Approximate), Expires: 06/12/2024[facility] Work Phone: Comment on above:Expected: 06/15/2023 (Approximate), Expires: 06/12/2024Start: 06-15-2023 End: 63-34-5217Intsmh [Mass/volume] in Serum or PlasmaFOLATE SERUM Lab Routine Iron deficiency anemia secondary to blood loss (chronic) Expected: 06/15/2023 (Approximate), Expires: 06/12/2024[facility] Work Phone: Comment on above:Expected: 06/15/2023 (Approximate), Expires: 06/12/2024Start: 06-15-2023 End: 61-39-6318Clzj and Iron binding capacity panel - Serum or PlasmaIRON + TIBC Lab Routine Iron deficiency anemia secondary to blood loss (chronic) Expected: 06/15/2023 (Approximate), Expires: 06/12/2024[facility] Work Phone: Comment on above:Expected: 06/15/2023 (Approximate), Expires: 06/12/2024Start: 06-15-2023 End: 29-02-9717IHU, INTACT (WITHOUT CALCIUM)PTH, INTACT (WITHOUT CALCIUM) Lab Routine Vitamin D deficiency Hypercalcemia Expected: 06/15/2023 (Approximate), Expires: 09/14/2023[facility] Work Phone: Comment on above:Expected: 06/15/2023 (Approximate), Expires: 09/14/2023Start: 06-15-2023 End: 52-81-4786Avdijyjidye [Units/volume] in Serum or PlasmaTSH BLD Lab Routine Malaise and fatigue Expected: 06/15/2023 (Approximate), Expires: 09/14/2023 [facility] Work Phone: Comment on above:Expected: 06/15/2023 (Approximate), Expires: 09/14/2023Start: 06-14-2023 End: 698168-vjlouhvzjikmmf D3 [Mass/volume] in Serum or PlasmaVITAMIN D 25 HYDROXY Lab Routine Hypercalcemia Vitamin D deficiency Expected: 06/14/2023 (Approximate), Expires: 09/13/2023[facility] Work Phone: Comment on above:Expected: 06/14/2023 (Approximate), Expires: 09/13/2023Start: 06-14-2023 End: 68-40-1284Elopymx.ionized [Moles/volume] in BloodCALCIUM IONIZED BLOOD Lab Routine Hypercalcemia Vitamin D deficiency Expected: 06/14/2023 (Approximate), Expires: 09/13/2023[facility] Work Phone: Comment on above:Expected: 06/14/2023 (Approximate), Expires: 09/13/2023Start: 06-14-2023 End: 29-70-8884ZBO, INTACT (WITHOUT CALCIUM)PTH, INTACT (WITHOUT CALCIUM) Lab Routine Hypercalcemia Vitamin D deficiency Expected: 06/14/2023 (Approximate), Expires: 09/13/2023[facility] Work Phone: Comment on above:Expected: 06/14/2023 (Approximate), Expires: 09/13/2023Start: 06-14-2023 End: 03-00-5614Ivpimyzayhl [Units/volume] in Serum or PlasmaTSH BLD Lab Routine Hypercalcemia Malaise and fatigue Expected: 06/14/2023 (Approximate), Expires: [address] [place] [address] Work Phone: Comment on above:Expected: 06/14/2023 (Approximate), Expires: 09/13/2023Start: 05-14-2023 End: 19-09-2971PHX W Auto Differential panel - BloodCBC + DIFF Lab Routine Primary hypercoagulable state (HCC) Iron deficiency anemia secondary to blood loss (chronic) Vitamin D deficiency CVA, old, 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) Expected: 05/14/2023 (Approximate), Expires: 03/19/2024[facility] Work Phone: Comment on above:Expected: 05/14/2023 (Approximate), Expires: 03/19/2024Start: 05-14-2023 End: 17-81-9312Johjbotdl (Vitamin B12) [Mass/volume] in Serum or PlasmaVITAMIN B12 BLOOD Lab Routine Primary hypercoagulable state (HCC) Iron deficiency anemia secondary to blood loss (chronic) Vitamin D deficiency CVA, old, 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) Expected: 05/14/2023 (Approximate), Expires: 03/19/2024[facility] Work Phone: Comment on above:Expected: 05/14/2023 (Approximate), Expires: 03/19/2024Start: 05-14-2023 End: 45-12-8640Dhkapmptbywdb metabolic 2000 panel - Serum or PlasmaCOMP METABOLIC PANEL Lab Routine Primary hypercoagulable state (HCC) Iron deficiency anemia secondary to blood loss (chronic) Vitamin D deficiency CVA, old, 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) Expected: 05/14/2023 (Approximate), Expires: 03/19/2024[facility] Work Phone: Comment on above:Expected: 05/14/2023 (Approximate), Expires: 03/19/2024Start: 05-14-2023 End: 83-32-1079Ikiglgjx [Mass/volume] in Serum or PlasmaFERRITIN BLD Lab Routine Primary hypercoagulable state (HCC) Iron deficiency anemia secondary to blood loss (chronic) Vitamin D deficiency CVA, old, 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) Expected: 05/14/2023 (Approximate), Expires: 03/19/2024[facility] Work Phone: Comment on above:Expected: 05/14/2023 (Approximate), Expires: 03/19/2024Start: 05-14-2023 End: 61-97-3891Nwswrm [Mass/volume] in Serum or PlasmaFOLATE SERUM Lab Routine Primary hypercoagulable state (HCC) Iron deficiency anemia secondary to blood loss (chronic) Vitamin D deficiency CVA, old, 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) Expected: 05/14/2023 (Approximate), Expires: 03/19/2024[facility] Work Phone: Comment on above:Expected: 05/14/2023 (Approximate), Expires: 03/19/2024Start: 05-14-2023 End: 79-91-5257Dimb and Iron binding capacity panel - Serum or PlasmaIRON + TIBC Lab Routine Primary hypercoagulable state (HCC) Iron deficiency anemia secondary to blood loss (chronic) Vitamin D deficiency CVA, old, 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) Expected: 05/14/2023 (Approximate), Expires: 03/19/2024[facility] Work Phone: Comment on above:Expected: 05/14/2023 (Approximate), Expires: 03/19/2024Start: 56-71-7957Xapkjlcqdu Health ScreeningBehavioral Health ScreeningUniversity Hospitals TriPoint Medical Centertart: 54-50-5355Kfdglcmpdb AssessmentDepression AssessmentUniversity Hospitals TriPoint Medical Centertart: 02-16-2023 End: 063944-ekwuaylthwemoz D3 [Mass/volume] in Serum or PlasmaVITAMIN D 25 HYDROXY Lab Routine Primary hypercoagulable state (HCC) Iron deficiency anemia secondary to blood loss (chronic) Vitamin D deficiency Expected: 02/16/2023 (Approximate), Expires: 04/18/2023[facility] Work Phone: Comment on above:Expected: 02/16/2023 (Approximate), Expires: 04/18/2023Start: 02-16-2023 End: 07-64-2421AMG W Auto Differential panel - BloodCBC + DIFF Lab Routine Primary hypercoagulable state (HCC) Iron deficiency anemia secondary to blood loss (chronic) Expected: 02/16/2023 (Approximate), Expires: 12/23/2023[facility] Work Phone: Comment on above:Expected: 02/16/2023 (Approximate), Expires: 12/23/2023Start: 02-16-2023 End: 85-52-8070Wlxbrvpyj (Vitamin B12) [Mass/volume] in Serum or PlasmaVITAMIN B12 BLOOD Lab Routine Primary hypercoagulable state (HCC) Iron deficiency anemia secondary to blood loss (chronic) Expected: 02/16/2023 (Approximate), Expires: 12/23/2023[facility] Work Phone: Comment on above:Expected: 02/16/2023 (Approximate), Expires: 12/23/2023Start: 02-16-2023 End: 96-26-6764Ynhsxqjtcults metabolic 2000 panel - Serum or PlasmaCOMP METABOLIC PANEL Lab Routine Primary hypercoagulable state (HCC) Iron deficiency anemia secondary to blood loss (chronic) Expected: 02/16/2023 (Approximate), Expires: 12/23/2023[facility] Work Phone: Comment on above:Expected: 02/16/2023 (Approximate), Expires: 12/23/2023Start: 02-16-2023 End: 94-19-6403Rheernme [Mass/volume] in Serum or PlasmaFERRITIN BLD Lab Routine Primary hypercoagulable state (HCC) Iron deficiency anemia secondary to blood loss (chronic) Expected: 02/16/2023 (Approximate), Expires: 12/23/2023[facility] Work Phone: Comment on above:Expected: 02/16/2023 (Approximate), Expires: 12/23/2023Start: 02-16-2023 End: 37-86-3928Fsznxy [Mass/volume] in Serum or PlasmaFOLATE SERUM Lab Routine Primary hypercoagulable state (HCC) Iron deficiency anemia secondary to blood loss (chronic) Expected: 02/16/2023 (Approximate), Expires: 12/23/2023[facility] Work Phone: Comment on above:Expected: 02/16/2023 (Approximate), Expires: 12/23/2023Start: 02-16-2023 End: 79-91-3228Mukv and Iron binding capacity panel - Serum or PlasmaIRON + TIBC Lab Routine Primary hypercoagulable state (HCC) Iron deficiency anemia secondary to blood loss (chronic) Expected: 02/16/2023 (Approximate), Expires: 12/23/2023[facility] Work Phone: Comment on above:Expected: 02/16/2023 (Approximate), Expires: 12/23/2023Start: 37-30-7735Ricag-19 Vaccine ()Covid- 19 Vaccine ()[facility]: 70-56-9181Okblwinwj vaccinationUniversity Hospitals TriPoint Medical Centertart: 96-63-4804FMA TESTINGPAP TESTINGUniversity Hospitals TriPoint Medical Centertart: 13-23-7142Tvaauotgv for malignant neoplasm of cervixPap Testing [facility]art: 11-28-2022 End: 92-93-7057GEH W Auto Differential panel - BloodCBC + DIFF Lab Routine Primary hypercoagulable state (HCC) CVA, old, speech/language deficit Cerebral hyponatremia Expected: 11/28/2022 (Approximate), Expires: 10/04/2023[facility] Work Phone: Comment on above:Expected: 11/28/2022 (Approximate), Expires: 10/04/2023Start: 11-28-2022 End: 41-61-7333Jeehsdqde (Vitamin B12) [Mass/volume] in Serum or PlasmaVITAMIN B12 BLOOD Lab Routine Primary hypercoagulable state (HCC) CVA, old, speech/language deficitCerebral hyponatremia Expected: 11/28/2022 (Approximate), Expires: 06/06/[address] [place] [address] Work Phone: Comment on above:Expected: 11/28/2022 (Approximate), Expires: 10/04/2023Start: 11-28-2022 End: 60-09-8012Hqmyyxsgwqsck metabolic 2000 panel - Serum or PlasmaCOMP METABOLIC PANEL Lab Routine Primary hypercoagulable state (HCC) CVA, old, speech/language deficit Cerebral hyponatremia Expected: 11/28/2022 (Approximate), Expires: [address] [place] [address] Work Phone: Comment on above:Expected: 11/28/2022 (Approximate), Expires: 10/04/2023Start: 11-28-2022 End: 44-13-5240Yyxringg [Mass/volume] in Serum or PlasmaFERRITIN BLD Lab Routine Primary hypercoagulable state (HCC) CVA, old, speech/language deficit Cerebral hyponatremia Expected: 11/28/2022 (Approximate), Expires: 10/04/2023[facility] Work Phone: Comment on above:Expected: 11/28/2022 (Approximate), Expires: 10/04/2023Start: 11-28-2022 End: 16-86-1891Thjnnj [Mass/volume] in Serum or PlasmaFOLATE SERUM Lab Routine Primary hypercoagulable state (HCC) CVA, old, speech/language deficit Cerebral hyponatremia Expected: 11/28/2022 (Approximate), Expires: 10/04/2023[facility] Work Phone: Comment on above:Expected: 11/28/2022 (Approximate), Expires: 10/04/2023Start: 11-28-2022 End: 72-55-6122Qjuo and Iron binding capacity panel - Serum or PlasmaIRON + TIBC Lab Routine Primary hypercoagulable state (HCC) CVA, old, speech/language deficit Cerebral hyponatremia Expected: 11/28/2022 (Approximate), Expires: [address] [place] [address] Work Phone: Comment on above:Expected: 11/28/2022 (Approximate), Expires: 10/04/2023Start: 09-21-2022 End: 97-72-2389DSD W Auto Differential panel - BloodCBC + DIFF Lab Routine Primary hypercoagulable state (HCC) 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, old, speech/language deficit Expected: 09/21/2022 (Approximate), Expires: 07/28/2023[facility] Work Phone: Comment on above:Expected: 09/21/2022 (Approximate), Expires: 07/28/2023Start: 09-21-2022 End: 60-36-1070Npumoygji (Vitamin B12) [Mass/volume] in Serum or PlasmaVITAMIN B12 BLOOD Lab Routine Primary hypercoagulable state (HCC) 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, old, speech/language deficit Expected: 09/21/2022 (Approximate), Expires: 07/28/2023[facility] Work Phone: Comment on above:Expected: 09/21/2022 (Approximate), Expires: 07/28/2023Start: 09-21-2022 End: 33-27-1665Xioaidvsnuyve metabolic 2000 panel - Serum or PlasmaCOMP METABOLIC PANEL Lab Routine Primary hypercoagulable state (HCC) 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, old, speech/language deficit Expected: 09/21/2022 (Approximate), Expires: 07/28/2023[facility] Work Phone: Comment on above:Expected: 09/21/2022 (Approximate), Expires: 07/28/2023Start: 09-21-2022 End: 25-67-7868Ztaqsxbn [Mass/volume] in Serum or PlasmaFERRITIN BLD Lab Routine Primary hypercoagulable state (HCC) 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, old, speech/language deficit Expected: 09/21/2022 (Approximate), Expires: 07/28/2023[facility] Work Phone: Comment on above:Expected: 09/21/2022 (Approximate), Expires: 07/28/2023Start: 09-21-2022 End: 88-35-4131Jwdahr [Mass/volume] in Serum or PlasmaFOLATE SERUM Lab Routine Primary hypercoagulable state (HCC) 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, old, speech/language deficit Expected: 09/21/2022 (Approximate), Expires: 07/28/2023[facility] Work Phone: Comment on above:Expected: 09/21/2022 (Approximate), Expires: 07/28/2023Start: 09-21-2022 End: 05-89-6185Psye and Iron binding capacity panel - Serum or PlasmaIRON + TIBC Lab Routine Primary hypercoagulable state (HCC) 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, old, speech/language deficit Expected: 09/21/2022 (Approximate), Expires: 07/28/2023[facility] Work Phone: Comment on above:Expected: 09/21/2022 (Approximate), Expires: 07/28/2023Start: 34-68-3678AVAVXTCGSF ASSESSMENTDEPRESSION ASSESSMENT [facility]: 01-30-2022 End: 41-40-2803Jgeoyasm [Mass/volume] in Serum or PlasmaFERRITIN BLD Lab Routine Anemia, unspecified type Expected: 01/30/2022, Expires: 01/30/2023[facility] Work Phone: Comment on above:Expected: 01/30/2022, Expires: 01/30/2023Start: 01-30-2022 End: 46-72-3957Fqju and Iron binding capacity panel - Serum or PlasmaIRON + TIBC Lab Routine Anemia, unspecified type Expected: 01/30/2022, Expires: 01/30/2023 [facility] Work Phone: Comment on above:Expected: 01/30/2022, Expires: 01/30/2023Start: 78-53-0798Faylnauzo vaccinationUniversity Hospitals TriPoint Medical Centertart: 12-29-2021 End: 68-24-6240Ktriaex encounter bqjrlqxce05/01/2022 [facility] Maternal MedStart: 89-60-4056RQTBHEHLAO ASSESSMENTDEPRESSION ASSESSMENTUniversity Hospitals TriPoint Medical Centertart: 27-11-2526Vqazx depression screening assessmentDEPRESSION SCREENINGUniversity Hospitals TriPoint Medical Centertart: 12-04-2020 Screening for malignant neoplasm of cervixCervical Cancer ScreeningUniversity Hospitals TriPoint Medical Centertart: 65-63-7745Gnjqogxo screenDiabetes screenFAUQUIER HEALTH SYSTEM Start: 14-10-7056OZK TESTINGHPV TESTINGUniversity Hospitals TriPoint Medical Centertart: 10-22-2015 Screening for malignant neoplasm of cervixFAUQUIER HEALTH SYSTEMStart: 45-33-6768TAL Vaccine (1 - 3-dose SCDM series)HPV Vaccine (1 - 3-dose SCDM series)[facility]: 62-69-8123HKH Vaccines (1 - 3-dose SCDM series)HPV Vaccines (1 - 3-dose SCDM series)[facility] HospitalStart: 73-91-2215Popunrlww for malignant neoplasm of cervixPap smearFAUQUIER HEALTH SYSTEMStart: 2004 DTaP,Tdap and Td Vaccines (1 - Tdap)DTaP,Tdap and Td Vaccines (1 - Tdap) [facility] Campustart: 48-41-9986Juyvfrwez B Vaccine (1 of 3 - 19+ 3-dose series)Hepatitis B Vaccine (1 of 3 - 19+ 3-dose series)[facility]art: 77-33-6387Szqtgnmhg B Vaccines (1 of 3 - 19+ 3-dose series)Hepatitis B Vaccines (1 of 3 - 19+ 3-dose series)[facility] HealthcareStart: 84-24-4602Whycj BMI Follow Up PlanAdult BMI Follow Up PlanFrye Regional Medical Center Alexander Campustart: 96-06-2175Iihha BMI ScreeningAdult BMI ScreeningFrye Regional Medical Center Alexander Campustart: 28-71-4442Tlumwwv ScreeningAnxiety ScreeningUniversity Hospitals TriPoint Medical Centertart: 08-64-3677Hnyafufzdb Screening Depression ScreeningUniversity Hospitals TriPoint Medical Centertart: 78-65-8691CNOCXDSJF C SCREENING HEPATITIS C SCREENINGUniversity Hospitals TriPoint Medical Centertart: 57-84-8967Dhsfyaqzk C screeningFAUQUIER HEALTH SYSTEMStart: 63-69-5770NIR SCREENINGHIV SCREENINGThe [facility] Start: 24-09-7749DPL screeningHIV ScreeningUniversity Hospitals TriPoint Medical Centertart: 1998 History of varicella vaccinationVaricella Vaccines (1 of 2 - 13+ 2-dose series) [facility] HospitalStart: 85-29-0657Uvedpoqtcb ScreenDepression ScreenBON Mercy Health St[facility] Hospitalart: 76-22-1250Pwuxqzvpgf ScreeningDepression ScreeningProMcKitrick Hospitaltart: 70-78-3733Duojeev ScreeningTobacco ScreeningFrye Regional Medical Center Alexander Campustart: 36-59-3459BKuP/Tdap/Td Vaccines (1 - Tdap)DTaP/Tdap/Td Vaccines (1 - Tdap)[facility] HospitalStart: 65-09-9065GBSSW-19 VACCINE (#1)COVID-19 VACCINE (#1)[facility]art: 43-65-6462WXVHF-19 VACCINE (1)COVID-19 VACCINE (1) [facility]: 40-16-6642AJS Vaccines (1 of 1 - Standard series)MMR Vaccines (1 of 1 - Standard series)[facility] HospitalStart: 57-05-9699Ktrggikwi vaccine (1 of 2 - 2-dose childhood series)Varicella vaccine (1 of 2 - 2-dose childhood series)[facility]: 00-39-0629TEKUD-19 Vaccine (#1) COVID-19 Vaccine (#1)[facility]: 10-43-4093NTAXECIYT B (1 of 3 - 3-dose series)HEPATITIS B (1 of 3 - 3-dose series)[facility]: 65-70-5025Nlnhrrgjn B Vaccine (1 of 3 - 3-dose series)Hepatitis B Vaccine (1 of 3 - 3-dose series)[facility] End: 40-40-0636Omnbk Fetoprotein, MaternalBON [facility] Work Phone: comment on above:Once for 1 Occurrences starting 11/21/2021 until 11/21/2021 End: 98-77-4209Kukdgomgmma Ab, HEp-2 Substrate, S (NASEEM by IFA)Antinuclear [...] [facility] HealthcareComment on above:Ordered: 10/02/2024 End: 25-32-9792QJO W Auto Differential panel - BloodCBC + DIFF Lab Routine Primary hypercoagulable state (HCC) CVA, old, 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[facility]) Every 2 months for 6 Occurrences starting 01/30/2022 until 01/30/2023[facility] Work Phone: Comment on above:Every 2 [...] differential Lab Routine 28 weeks gestation of ([facility]-HCC) Ordered: 02/09/2025[facility] Healthcare Work Phone: comment on above:Ordered: 02/09/2025HLAMYDIA TRACHOMATIS (GENITO/STI)CHLAMYDIA TRACHOMATIS (GENITO/STI) Lab Routine Vaginal bleeding Vaginal discharge Ordered: 06/23/2024[facility] HealthcareComment on above: Ordered: 06/23/2024HLAMYDIA TRACHOMATIS (GENITO/STI)CHLAMYDIA TRACHOMATIS (GENITO/STI) Lab Routine Vaginal discharge Ordered: 11/20/2024[facility] Healthcare Comment on above:Ordered: 11/20/2024 End: 88-46-3248Hkcqndgmbp profile (C3 AND C4)Complement profile (C3 AND C4) Lab Routine Antiphospholipid syndrome Antiphospholipid syndrome complicating , antepartum History of CVA (cerebrovascular accident) 1 Occurrences starting 02/16/2025 until 02/16/2026[facility] SystemComment on above:1 Occurrences starting 02/16/2025 until 02/16/2026 End: 37-52-7715Ziukhtscnenoh metabolic 2000 panel - Serum or PlasmaCOMP METABOLIC PANEL Lab Routine Primary hypercoagulable state (HCC) CVA, old, 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) Every 2 months for 6 Occurrences starting 01/30/2022 until 01/30/2023[facility] Work Phone: Comment on above:Every 2 months for 6 Occurrences starting 01/30/2022 until 01/30/2023 End: 99-22-0963HCL double-stranded (dsDNA) Abs by Crithidia luciliae IFADNA double-stranded (dsDNA) Abs by Crithidia luciliae IFA Lab Routine Antiphospholipid syndrome Antiphospholipid syndrome complicating , antepartum History of CVA (cerebrovascular accident) 1 Occurrences starting 02/16/2025 until 02/16/2026[facility] SystemComment on above:1 Occurrences starting 02/16/2025 until 02/16/2026 End: 90-94-4213AUS PanelENA Panel Lab Routine Antiphospholipid syndrome Antiphospholipid syndrome complicating , antepartum History of CVA (cerebrovascular accident) 1 Occurrences starting 02/16/2025 until 02/16/2026 [facility] SystemComment on above:1 Occurrences starting 02/16/2025 until 02/16/2026Hemoglobin A1c/Hemoglobin.total in BloodHemoglobin A1c Lab Routine Missed menses , unspecified gestational age Ordered: 04/04/2024[facility] HealthcareComment on above:Ordered: 04/04/2024Hemoglobin A1c/Hemoglobin.total in BloodHemoglobin A1c Lab Routine Missed menses , unspecified gestational age Ordered: 10/02/2024[facility] HealthcareComment on above:Ordered: 10/02/2024Hepatitis B virus surface Ag [Presence] in Serum or Plasma by ImmunoassayHepatitis B surface antigen Lab Routine Missed menses , unspecified gestational age Ordered: 04/04/2024[facility] HealthcareComment on above: Ordered: 04/04/2024Hepatitis [...] 04/04/2024[facility] HealthcareComment on above:Ordered: 4Reagin Ab [...] Serum or PlasmaTSH Lab Routine Hypothyroidism (acquired) ([facility]) Ordered: 04/04/2024[facility] HealthcareComment on above:Ordered: 04/04/2024 Thyrotropin [Units/volume] in Serum or PlasmaTSH Lab Routine History of thyroid disease Ordered: 06/02/2024[facility] Work Phone: comdujv on above:Ordered: 06/02/2024Thyrotropin [Units/volume] in Serum or PlasmaTSH Lab Routine Thyroid disease ([facility]) Ordered: 10/02/2024[facility] HealthcareComment on above:Ordered: 10/02/2024 Thyrotropin [Units/volume] in Serum or PlasmaTSH Lab Routine Second trimester ([facility]) Thyroid disease Ordered: 12/11/2024[facility] Work Phone: comdzmq on above:Ordered: 12/11/2024UA DIP, URINE (POC)UA DIP, URINE (POC) Lab Routine Infective urethritis Ordered: 08/01/2021 [facility] Work Phone: Comment on above:Ordered: 08/01/2021Vitamin D 1,25 dihydroxyVitamin D 1,25 dihydroxy Lab Routine Low vitamin D level Ordered: 04/04/2024[facility] HealthcareComment on above:Ordered: 04/04/2024 End: 28-77-0416Rfrwpdm D 25 hydroxyVitamin D 25 hydroxy Lab Routine Insulin controlled gestational diabetes mellitus (GDM) in second trimester 1 Occurrences starting 12/03/2024 until 12/03/2025[facility] Work Phone: comment on above:1 Occurrences starting 12/03/2024 until 12/03/2025[facility] Immunizations Immunization DateImmunizationNotesCare OxxcvzktUdbrubvj92-23-2408dkfgrocyx virus vaccine, unspecified formulationKirstofer Calix MD Work Phone: [facility] HospitalAggkuh13-02-0076ktxoxjq toxoid, reduced diphtheria toxoid, and acellular pertussis vaccine, adsorbedMa Sand Work Phone: [facility] HospitalNEGATED: Highlighted row has not occurred!47-93-7932hztujpzac virus vaccine, unspecified formulationScott PRAVEEN 804-7776Brbkfv-RyrikMercy Health St. [facility] Primary CareNEGATED: Highlighted row has not occurred!65-87-4330hikupjlbp virus vaccine, unspecified formulationPERNELL LONGORIA [phone]-ClkxpMercy Health St. [facility] [place] Payers DatePayer CategoryPayerPolicy [id number] 2021Medicaid [place] [employer] [id number] 2020-Present [phone] [address] [place] [address] [id number] 2021Medicaid [id number] 2.16.840.1.645381.3.57[id number] 2.16.840.1.851835.3.57[id number] 2.16.840.1.988653.3.579.[id number] 2.16.840.1.087375.3.579.[id number] 2.16.840.1.186380.3.57[id number] 2.16840.1.603500.3.579.2.53459-03-6394Sqkvocx0697450 2.16840.1.028161.3.579.2.08691-68-5148Udcgmie3769759 2.16.840.1.980046.3.579.2.43849-93-2750Xbqxffu2933555 2.16.840.1.848507.3.579.2.56980-00-0752Ngtzpog2130327 2.16.840.1.791886.3.579.2.79597-89-2795Nkegewq2666793 2.16.840.1.503305.3.579.2.09762-04-5393Iizlisy1744893 2.16.840.1.779365.3.579.2.71191-73-8801Udsjbty4984573 2.16.840.1.416201.3.579.2.27727-75-3359Gathqyj1601912 2.16840.1.679186.3.579.2.73600-02-1448Fvoqijh3742353 2.16840.1.515582.3.579.2.43156-74-4095Agwlvyg8972160 2.16840.1.125126.3.579.2.73089-50-4120Aexalze8212862 2.16840.1.235242.3.579.2.76292-61-1523Dkkieec7490650 2.16840.1.745418.3.579.2.91125-41-7978Kgoxkti6510055 2.16840.1.464108.3.579.2.89211-42-9104Efmocvz9778346 2.840.1.480837.3.579.2.31149-40-7809Upkhmxg2491028 2.840.1.920463.3.579.2.78368-58-5309Eqexhcx4750012 2.840.1.514904.3.579.2.41445-86-8995Ogpeeem6052437 2.840.1.333858.3.579.2.92179-27-6232Vyuxfcz4919249 2.840.1.203064.3.579.2.86865-20-9085Dapyaet3998961 2.840.1.520848.3.579.2.00371-69-4203Gfppgxp7384870 2.16840.1.366821.3.579.2.54265-29-9513Rqlhxnl7158707 2.16840.1.270914.3.579.2.28088-88-2680Fkkdmle9662029 2.16840.1.216337.3.579.2.54395-56-8369Moqblxf5462804 2.16840.1.620927.3.579.2.47070-86-4358Sbhuyib99914486 2.16840.1.238838.3.579.2.83859-59-4444Drnxxbo14042946 2.16840.1.781112.3.579.2.17168-04-7330Moykdrm79810222 2.16840.1.854573.3.579.2.37244-31-3161Wcyrqjs05152614 2.16840.1.205667.3.579.2.35073-82-3497Twfskir34451086 2..1.827027.3.579.2.10555-01-5575Cruvnha10538482 2..1.060135.3.579.2.21846-09-2608Dzyivdi56368508 2.840.1.798421.3.579.2.57203-96-2704Mpqbcfr87655949 2.0.1.963873.3.579.2.54497-30-6027Bmvvtug50264738 2.0.1.775289.3.579.2.86678-81-4311Btrtagt96859485 2..1.770097.3.579.2.01757-00-3372Vdumhjg76143701 2.16840.1.359752.3.579.2.28277-54-6918Jhrhfll75403865 2.16840.1.007796.3.579.2.09442-58-7844Anxhoul69051223 2.16840.1.040333.3.579.2.90583-16-6044Wuumfxn79816608 2.16840.1.927013.3.579.2.73702-87-7633Swetdav91710279 2.16840.1.858653.3.579.2.19741-00-5725Eywnwjz84563346 2.16840.1.193521.3.57[id number] 2.16840.1.193665.3.579.2.71862-80-3429Jrnweob72904085 2.840.1.197670.3.579.2.38329-52-6941Gbukecd60226909 2.0.1.539468.3.579.2.63510-89-6261Avtycyn82365632 2.840.1.337502.3.579.2.53425-25-0787Ninrcmr61905960 2.0.1.039120.3.579.2.41550-18-4609Mkzftie01323660 2.840.1.830256.3.579.2.40620-73-8919Xxmctqh62643814 2.0.1.844746.3.579.2.62171-02-3075Sctkoon96278843 2.840.1.483043.3.579.2.15728-12-3584Jlhdezl82056808 2.0.1.932262.3.57[id number] 2.840.1.691823.3.579.2.77087-52-6802Bawpgzz48288329 2.840.1.878279.3.57[id number] 2.840.1.639334.3.579.2.86451-75-8326Xyiaxyu33448297 2.16840.1.974043.3.579.2.33614-97-2883Yncmdpi55891549 2.16840.1.899661.3.579.2.95418-61-4515Awqwspu70980760 2.16840.1.481595.3.579.2.90733-18-3259Fliobfe51991759 2.16840.1.157252.3.579.2.41564-86-5253Nenbdpq64544328 2.16840.1.029178.3.579.2.97491-89-2302Hnibbaq89800773 2.0.1.266184.3.579.2.88373-91-5899Trtlwhg90296972 2.0.1.033203.3.579.2.02515-56-6774Dbarxwj65066640 2.840.1.123699.3.579.2.93449-11-4461Pptlvaw58601819 2.840.1.095993.3.579.2.93154-15-1349Lxwbmol87440768 2.840.1.748904.3.579.2.55036-96-6548Yvcqjix60701686 2.0.1.337539.3.579.2.21439-34-7896Iajzyeu13146848 2.840.1.511366.3.579.2.12188-84-5555Nvtoion77646732 2.840.1.161574.3.579.2.47372-91-0544Mqujoar84675774 2.16840.1.724986.3.579.2.70190-86-4109Ryopjnt92404855 2.840.1.682878.3.579.2.00431-63-6269Rwfmyhb85011042 2.16840.1.898370.3.579.2.71992-75-3978Gljevhi899767794 2.16840.1.534395.3.579.2.720892-63-7010Wdzeoqw712034399 2.16840.1.337145.3.579.2.463325-40-9634Sjvvssu969310567 2.16840.1.766551.3.579.2.249033-63-4675Ytvhokp20513687 2.840.1.711172.3.579.2.02713-32-9455Kqdduft79901531 2.840.1.319136.3.579.2.994689-19-7238Lfmhwaa39978309 2.840.1.274702.3.579.2.297275-34-5571Oazufoq18156448 2.840.1.424511.3.579.2.109586-99-3008Xayijtv12207337 2.840.1.945782.3.579.2.225740-93-6612Xzglczn02632512 2.840.1.670643.3.579.2.936898-09-9565Mgvixqf43832993 2.840.1.732516.3.579.2.860458-11-7891Vsqivvg92764440 2.840.1.360932.3.579.2.957269-98-0895Iodkrng30444828 2.840.1.647142.3.579.2.960248-84-0791Vtuoabb85963933 2.16840.1.317440.3.579.2.847222-95-6368Ebyclhr27476074 2.16840.1.373888.3.579.2.435466-14-3998Laxukpl6273411 2.16.840.1.337003.3.579.2.487405-16-5260Wcvdqfz8003700 2.16840.1.953204.3.579.2.091892-13-3724Fgijfiu0151932 2.16840.1.454726.3.579.2.510520-21-4419Suypffh6477691 2.16840.1.245554.3.579.2.945653-61-4768Awqzrhc8179664 2.0.1.733854.3.579.2.933753-90-2577Umqjewl3561161 2.840.1.167420.3.579.2.309224-23-9027Uabcjpp803889972 2.840.1.848789.3.579.2.862066-76-5257Scnuzkl428152951 2.840.1.610932.3.579.2.282033-27-4826Fahmywo002643587 2.840.1.960140.3.579.2.802254-07-3332Hufbncm446962928 2.840.1.011800.3.579.2.238292-62-4882Ajtsgke222728784 2.840.1.189559.3.579.2.400050-89-5780Kplujho328611201 2.16840.1.784110.3.579.2.817337-36-9998Ghqmlzh166812097 2.16840.1.248310.3.579.2.310256-89-3331Xlkljcd476081905 2.16840.1.184315.3.579.2.941078-66-6648Yypg-xfk45-41-5975AdxvlksL3621173407 17-95-3062Fgohjgr98037027786 1.2.840.713139.1.13.239.2.7.3.747331.315Unknown 9791517 2.16.840.1.540302.3.579.2.593 Social History DateTypeDetailFacilityStart: 09-10-2017 End: 84-71-6164Sukwgme smoking status NHISNever smoked tobaccoThe Christ Hospital Start: 09-10-2017 End: 35-90-9124Odkixbw use and exposureSmokeless tobacco non-userUniversity Hospitals TriPoint Medical Centertart: 08-01-2021 End: 44-18-0331Rggoncq intakeCurrent non-drinker of alcohol (finding)[facility] Centertart: 44-40-4749Nro Assigned At BirthNot on fileUniversity Hospitals TriPoint Medical Centertart: 07-22-2021 End: 97-33-4623Iypiochx to SARS-CoV-2 (event)Not sureUniversity Hospitals TriPoint Medical Centertart: 05-28-2017 End: 75-65-1028Rpouzwu smoking statusNeverFlower Hospital Start: 06-10-2020 End: 47-30-1552Umc Assigned At BirthFemalMercy Health [facility] Start: 11-21-2021 End: 60-12-3708Wgkljdl intakeEx-drinker (finding)[employer] Work Phone: start: 66-11-7645Wkcxrfu SDOH Alcohol Comment occasionallyBON [employer] Phone: start: 07-11-0889HpcpeqvfXKP [employer] Phone: start: 06-10-2020 End: 86-04-0626Tytbjpy of Social functionUniversity Hospitals TriPoint Medical Centertart: 04-04-2024 End: 13-65-3456Kvdirvave beverage intakeLifetime non-drinker (finding)[facility] HealthcareTobacco smoking status ILISUnknown if ever smokedFort Hamilton Hospital Work Phone: Start: 11-27-2018 End: 69-10-6135UerYwdbss (finding)[facility] Hospitaltart: 99-88-2663Ray Assigned At [facility] Medical Equipment Procedure CodeEquipment CodeEquipment Original TextEquipment IdentifierDates [id number]: 10-30-2024 End: each by In Vitro route Daily Use to check FSBS four times daily [id number]: 10-30-2024 End: 88-22-2163Xxz a new needle with each injection ( 1- 5 times per day) [id number]: 12-03-2024 Functional Status McmkZlbblzeuqyDbabfjFjhktiza08-86-5756Panziym Health Questionnaire 2 item (PHQ- 2) [Reported][facility] Specialty HospitalKilxwjnpgl39-73-5145Tbounnx Health Questionnaire 2 item (PHQ- 2) [Reported][facility]ty HospitalLjkaueggrg60-34-8721Vwwvjajoxg StatusN/[facility] Primary Guwn50-07-6968Uqkrbghgsy StatusN/[facility] Family Medicine Zsgdr50-10-5625Eajbphmgwr StatusN/[facility] Primary Rwhw56-42-3620Gisfxedanu StatusN/[facility] Primary Crym15-67-1318Aoyabbedyt StatusN/[facility] Con[facility]ient Care 87-95-5444Fehfssrhvk StatusN/[facility] Primary Igqo89-78-6259 Functional StatusN/[facility] Primary Gezr94-32-1456Sxgsqdmcpv StatusN/[facility] Convenient Ywog87-92-0788Lepziraaad Status N/[facility] Primary Hdor30-78-8144Gidfncpzgq StatusN/[facility] Primary Qvsm95-23-2198Ifcofowtty StatusN/[facility] Primary Tlfb69-23-7672Aduisggnfm StatusN/[facility] Care Clinical Notes 07-26-2019 to 03-11-2025 Note Date & GfewPnydHuynvvzs26-41-7407 History of Present illness Narrative* Charles Cortes [...] age) multigravida 35+ Antiphospholipid syndrome Hypothyroid Stroke ([facility]) Gestational diabetes mellitus (GDM) in second [...] Anemia Antiphospholipid antibody syndrome Cerebral infarction, unspecified ([facility]) 05/16/2019 Hypothyroid Migraine without aura and without status migrainosus, not intractable 09/12/2017 Stroke ([facility]) 2015 REVIEW OF [...] not hesitate to call me. Sincerely, CHARLES COTRES MD Video Visit via Real-time Synchronous Audiovisual Provider Location: [facility] AT [address] [phone] Patient Location: Patient's home Patient Location Funeral Director/Embalmer: None Video Visit Consent Statement: I discussed [...] that there are some limitations compared to wtkr-dz-kcqp evaluations. We elected to proceed. documented in this encounterMercer County Community Hospitalhaystagg Memorial HealthcareFlluhh33-62-5133 NoteHNO ID: [id number] Author: KATHERINE NEGRETE APRN.MASTER CONTROL TECHNICIAN Service: ? Author Type: Nurse Practitioner Type: Progress Notes Filed: 03/02/2025 20:18 Note Text: NAME: Sanna Rendon CLINIC NO.: [id number] DATE OF SERVICE: March 02, 2025 (Penelope) [...] later in 2018. These were found in [place], [place]. I don't have access to these [...] rash shortly before presenting to [facility] in 2015 with headaches and was [...] SUMMARIZED PLAN OF CARE: Continue Lovenox Saw REFRIGERATION PERSON and patient increased Lovenox to 40 mg [...] She has a h (more content not included)...[place] [address]-27-2025 History of Present illness Narrative* Rosi Murray, PIPE CAULKER - 02/23/2025 9:00 AM EDT Reason for [...] adult 11/15/2023 Cerebral infarction, unspecified ([facility]) 05/16/2019 Cerebrovascular accident (CVA) due to stenosis of middle cerebral artery ([facility]) 02/22/2020 Cervicalgia 02/05/2019 Chromosomal abnormality in [...] ([facility]) 06/05/2019 USP (current) use of antithrombotics/antiplatelets 02/05/2019 Migraine without aura and without status migrainosus, not intractable 09/12/2017 Morbid obesity ([facility]) 11/15/2023 Muscle fasciculation 08/19/2021 Nasal polyps [...] infection 06/12/2023 SVT (supraventricular tachycardia) ([facility]) 08/26/2019 Syncope and collapse 06/03/2018 Other [...] Date AMA (advanced maternal age) multigravida 35+ ([facility]) Anemia Antiphospholipid syndrome ([facility]) Gestational diabetes ([facility]) [...] drainage of cyst WISDOM TOOTH EXTRACTION 2007 Robertson teeth REVIEW OF SYSTEMS Review of Systems: [...] nursing note reviewed. Exam conducted with a software systems analyst present. Vitals: Estimated body mass index is 33.98 kg/m as calculated from the following: Height as of 11/19/23: 5' 6 . Weight as of this encounter: 210 lb 8 oz. BP: 116/72 Patient's last menstrual period was 07/28/2024. Assessment/Plan ICD-10-CM 1. Third trimester ([facility]) Z34.93 2. 30 weeks gestation of ([facility]) Z3A.30 POCT urinalysis dipstick manually resulted [...] of: Wilton Herrmann DO documented in this encounterRanken Jordan Pediatric Specialty HospitalIycrwmwiut18-96-0102 History of Present illness Narrative* Sam Callahan MD MPH - 02/16/2025 1:45 PM EDT Images from the original note were not included. ADULT RHEUMATOLOGY CLINIC NOTE [address] [address] Patient Name: Sanna Rendon Subjective Reason for [...] following with two outside specialists (Neurology at [facility] and Hematology at [facility]) for management of her APS. The [...] health issues unclear exact diagnoses Note from [facility] Provider (Dr. Noyola): Recent note from Neurologist: [...] age) multigravida 35+ Antiphospholipid syndrome Hypothyroid Stroke ([facility]) Gestational diabetes mellitus (GDM) in second [...] Anemia Antiphospholipid antibody syndrome Cerebral infarction, unspecified ([facility]) 05/16/2019 Hypothyroid Migraine without aura and without status migrainosus, not intractable 09/12/2017 Stroke ([facility]) 2016 reviewed. Social History [...] weeks . She is currently following with [facility] for her , neurology through the [employer] system, and hematology through [facility]. Based on extensive review of her [...] Expiration Date: 02/16/2026 Release to patient via Whitewood Tax Solutionst?: Immediate [1] Complement profile (C3 AND C4) Standing Status: Future Expiration Date: 02/16/2026 Release to patient via YuuConnecthart?: Immediate [1] DNA double-stranded (dsDNA) Abs by Rene angel IFA Standing Status: Future Expiration Date: 02/16/2026 Release to patient via YuuConnecthart?: Immediate [1] KELLEN Panel Standing Status: Future Expiration Date: 02/16/2026 Release to patient via YuuConnecthart?: Immediate [1] Treatment Plan: -if the patient [...] visit is OK Sam Callahan MD, MPH [facility] Rhe[facility] [address] [place] [address] Total pltq-yk-ihxf time was 55 minutes with more than [...] you for your understanding. documented in this encounterHighland District Hospital10-14-2025 Miscellaneous Notes* Telephone Encounter - Annita [...] sugars weekly. documented in this encounterVermont State HospitalAsysco10-14-2025 Telephone encounter Note* Telephone Encounter - PRISCILLA [...] Continue to send in blood sugars weekly. [facility] Work Phone: [phone]) 787-826510-13-2025 History of Present illness Narrative* Rosi Murray [...] adult 11/15/2023 Cerebral infarction, unspecified ([facility]) 05/16/2019 Cerebrovascular accident (CVA) due to stenosis of middle cerebral artery ([facility]) 02/22/2020 Cervicalgia 02/05/2019 Chromosomal abnormality in [...] ([facility]) 06/05/2019 lobsterman (current) use of antithrombotics/antiplatelets 02/05/2019 Migraine without [...] infection 06/12/2023 SVT (supraventricular tachycardia) ([facility]) 08/26/2019 Syncope and collapse 06/03/2018 Other bacterial infections of unspecified site 06/27/2019 Thrombocytopenia, unspecified 11/20/2019 Hypoglycemia 06/12/2023 Unspecified condition associated with female genital organs and menstrual cycle 05/09/2019 Unspecified ovarian cyst, right side 02/06/2019 Urinary tract infection 10/16/2019 Referred otalgia of right ear 11/19/2023 LPRD (laryngopharyngeal reflux disease) 11/19/2023 H/O loss 01/05/2025 Multigravida of advanced maternal age in second trimester ([facility]) 01/05/2025 Thyroid disease 01/05/2025 Resolved Ambulatory Problems Diagnosis Date Noted No Resolved Ambulatory Problems Past Medical History: Diagnosis Date AMA (advanced maternal age) multigravida 35+ ([facility]) Anemia Antiphospholipid syndrome ([facility]) Gestational diabetes ([facility]) Heartburn Hypothyroid Stroke ([facility]) HISTORY PAST MEDICAL HISTORY SOCIAL HISTORY Past Medical History: Diagnosis Date AMA (advanced maternal age) multigravida 35+ ([facility]) Anemia Antiphospholipid syndrome ([facility]) Gestational diabetes ([facility]) Heartburn Hypothyroid Stroke ([facility]CC) Social History [...] drainage of cyst WISDOM TOOTH EXTRACTION 2007 Robertson teeth REVIEW OF SYSTEMS Review of Systems: [...] nursing note reviewed. Exam conducted with a software systems analyst present. Vitals: Estimated body mass index is 34.12 kg/m as calculated from the following: Height as of 11/19/23: 5' 6 . Weight as of this encounter: 211 lb 6.4 oz. BP: 124/76 Patient's last menstrual period was 07/28/2024. ASSESSMENT & PLAN ICD-10-CM 1. Third trimester ([facility]) Z34.93 2. 28 weeks gestation of ([facility]) Z3A.28 CBC and differential POCT urinalysis dipstick [...] givenorders and they were also faxed to [facility] and [facility] Scheduling. Patient to return to clinic in 2 weeks for routine OB appointment. Documented by Rosi Murray LPN on behalf of: Wilton Herrmann DO documented in this encounterRanken Jordan Pediatric Specialty HospitalSoilpptcrg23-24-6764 History of Present illness Narrative* Mukul Noyola MD - 02/06/2025 2:00 PM EDT Images from the original note were not included. Video Visit via Real-time Synchronous Audiovisual Provider Location: [facility] AT [address] [phone] Patient Location: Other Home Patient Location Funeral Director/Embalmer: None Video Visit Consent Statement: I discussed [...] that there are some limitations compared to dxki-ol-gdqi evaluations. We elected to proceed. [facility] Maternal- Medicine Office Note Reason For [...] will be undergoing genetic testing through the poacher wringer operator. There is family history of hypospadias [...] Anemia Antiphospholipid antibody syndrome Cerebral infarction, unspecified ([facility]) 05/16/2019 Hypothyroid Migraine without aura and without status migrainosus, not intractable 09/12/2017 Stroke ([facility]) 2016 PSHIST: Past Surgical [...] to continue to send blood glucoses to [facility] to review - continue Lovenox 40 mg [...] Mukul Noyola MD, FACOG (she/hers) Maternal- Medicine [facility] [address] 1st [place] [address] This document was created with [employer] technology. Though I make every effort to review the dictation as it is transcribed, on occasion the spoken word can be misinterpreted by the technology leading to inappropriate words, phrases, or sentences. This note is addressed to the requesting provider as a consultation for clinical guidance. Specificmedical abbreviations are occasionally used and those are generally approved by the [place]?Board of?Obstetrics and?Gynecology?as well as?Elizabeth s abbreviations. The above plan of care was based solely on the diagnoses for which a consultation was requested. ?More frequent testing may be indicated based on her other medical/obstetrical conditions. The management of other or medical conditions is beyond the scope of requested consultation and will c ontinue to be followed by the primary oil burner or primary care provider. Note to patient: [...] opinion of the practitioner. documented in this encounterMercer County Community Hospitalhaystagg Memorial HealthcareFevqwb69-42-9110 NoteEchocardiology Procedure Exam Date/Time Accession # Ordering Dr. Echo Transthoracic 02/03/2025 10:00 EDT [id number] Wilton HERRMANN DO Complete CPT code 88557 34010 Reason for Exam (Echo Transthoracic Complete) Dizziness and giddiness E07.9, O09.522 R[address] [facility] [address] [place] [address] Adult Echocardiogram Report Name: SANNA RENDON Study Date: 02/03/2025 08:09 AM BP: 116/76 mmHg Patient Location: FT CAR F HR: 84 : 1985 Gender: Female Height: 66 in Age: 39 yrs Ethnicity: [facility] Weight: 205 lb Reason For Study: [...] MD Transcribed by: [facility] Technologist: [facility]09-22-2025 History of Present illness Narrative* Celia [...] adult 11/15/2023 Cerebral infarction, unspecified ([facility]) 05/16/2019 Cerebrovascular accident (CVA) due to stenosis of middle cerebral artery ([facility]) 02/22/2020 Cervicalgia 02/05/2019 Chromosomal abnormality in [...] ([facility]) 06/05/2019 lobsterman (current) use of antithrombotics/antiplatelets 02/05/2019 Migraine without [...] infection 06/12/2023 SVT (supraventricular tachycardia) ([facility]) 08/26/2019 Syncope and collapse 06/03/2018 Other [...] drainage of cyst WISDOM TOOTH EXTRACTION 2007 Robertson teeth REVIEW OF SYSTEMS Review of Systems: [...] nursing note reviewed. Exam conducted with a software systems analyst present. Vitals: Estimated body mass index is 34.14 kg/m as calculated from the following: Height as of 11/19/23: 5' 6 . Weight as of this encounter: 211 lb 8 oz. BP: 124/70 Patient's last menstrual period was 07/28/2024. ASSESSMENT & PLAN ICD-10-CM 1. Second trimester ([facility]) Z34.92 POCT urinalysis dipstick manually resulted 2. 25 weeks gestation of ([facility]) Z3A.25 3. Gestational diabetes mellitus (GDM), antepartum, gestational diabetes method of control unspecified ([facility]) O24.419 metFORMIN XR (Glucophage-XR) 500 MG 24 [...] to switch her Lovenox and Metformin to [facility] pharmacy. Growth ultrasound at28 weeks as well as NST and BPP at 28 weeks. Documented by Celia Keith NP on behalf of: Wilton Herrmann DO documented in this encounterRanken Jordan Pediatric Specialty HospitalEzacnhctzx35-19-0502 History of Present illness Narrative* Roxana Mays PA-C - 01/13/2025 10:00 AM EDT Maternal- Medicine Consultation VIDEO Patient is present at home , provider present at [facility] HISTORY OF PRESENT ILLNESS: Sanna Rendon [...] more likely to fail compared to insulin. lobsterman data on children whose mothers took oral [...] so she can have them done at [place] - Anatomy survey with MFM -followsup scheduled [...] by e-mail to: or by fax to: [phone] Roxana Mays PA-C Maternal- Medicine Office phone: [phone] Roxana Mays PA-C 01/13/25 1031 documented in this encounterMercer County Community Hospitalhaystagg [facility] Sbvolz70-16-4922 Miscellaneous Notes* Medical Student - Mike Aquino [...] the legal medical record. documented in this encounterHighland District Hospital09-16-2025 Progress note* Medical Student - Mike [...] a part of the legal medical record. [facility]09-12-2025 Miscellaneous Notes* Telephone Encounter - Mukul [...] answered. MUKUL NOYOLA MD documented in this encounterHighland District Hospital09-12-2025 Telephone encounter Note* Telephone Encounter - [...] concerns answered. MUKUL NOYOLA MD [facility] e|tabJkrieu63-58-3269 Miscellaneous Notes* Telephone Encounter - Jacque Pat RN - 01/07/2025 10:29 AM EDT Pathology Secretary called and spoke to patient yesterday to discuss a several topics. Pathology Secretary asked if patient wanted another follow up cervical length. Patient declined. We also discussed her insulin dosage. Patient had not started her NPH insulin yet because her pharmacy did not notify her it was ready for pickup. She asked if she could start at 4 units instead of 8. She is worried because she had a bad reaction when she took Lantus previously. Pathology Secretary discussed this with Dr. Noyola and she is okay with her starting at a lower dose for now. Lastly, technical publications writer notified patient that Dr. Noyola wanted to discuss with her fountain attendant her Lovenox dosing. Patient stated there was some confusion if she should be on 40mg or 80mg, patient prefers to be on the lower dose. Patient is seeing a Dr. Calix from the [facility] hematology office in [place]. Notified patient that we will reach out to her fountain attendant to discuss her dosing. documented in this encounterMercer County Community HospitalElephantTalk Communications09-10-2025 Telephone encounter Note* Telephone Encounter - Jacque Pat RN - 01/07/2025 10:29 AM EDT Pathology Secretary called and spoke to patient yesterday to discuss a several topics. Pathology Secretary asked if patient wanted another follow up cervical length. Patient declined. We also discussed her insulin dosage. Patient had not started her NPH insulin yet because her pharmacy did not notify her it was ready for pickup. She asked if she could start at 4 units instead of 8. She is worried because she had a bad reaction when she took Lantus previously. Pathology Secretary discussed this with Dr. Noyola and she is okay with her starting at a lower dose for now. Lastly, technical publications writer notified patient that Dr. Noyola wanted to discuss with her fountain attendant her Lovenox dosing. Patient stated there was some confusion if she should be on 40mg or 80mg, patient prefers to be on the lower dose. Patient is seeing a Dr. Calix from the [facility] hematology office in [place]. Notified patient that we will reach out to her fountain attendant to discuss her dosing. [facility]09-08-2025 History of Present illness Narrative* Rosi Murray [...] adult 11/15/2023 Cerebral infarction, unspecified ([facility]) 05/16/2019 Cerebrovascular accident (CVA) due to stenosis of middle cerebral artery ([facility]) 02/22/2020 Cervicalgia 02/05/2019 Chromosomal abnormality in [...] ([facility]) 06/05/2019 lobsterman (current) use of antithrombotics/antiplatelets 02/05/2019 Migraine without [...] drainage of cyst WISDOM TOOTH EXTRACTION 2007 Robertson teeth REVIEW OF SYSTEMS Review of Systems: [...] nursing note reviewed. Exam conducted with a software systems analyst present. Vitals: Estimated body mass index is 33.73 kg/m as calculated from the following: Height as of 11/19/23: 5' 6 . Weight as of this encounter: 209 lb. BP: 122/74 Patient's last menstrual period was 07/28/2024. ASSESSMENT & PLAN ICD-10-CM 1. Second trimester ([facility]) Z34.92 POCT urinalysis dipstick manually resulted 2. 23 weeks gestation of ([facility]) Z3A.23 3. Thyroid disease E07.9 Echocardiogram 2D complete ECG 12 lead unit performed Echocardiogram 2D complete 4. Gestational diabetes mellitus (GDM), antepartum, gestational diabetes method of control unspecified ([facility]) O24.419 Echocardiogram 2D complete ECG 12 lead unit performed Echocardiogram 2D complete 5. Multigravida of advanced maternal age in second trimester ([facility]) O09.522 Echocardiogram 2D complete ECG 12 lead [...] of: Wilton Herrmann DO documented in this encounterRanken Jordan Pediatric Specialty HospitalEjbebjvztb54-08-1998 History of Present illness Narrative* Jacque Pat RN - 01/05/2025 10:20 AM EDT NPH insulin prior authorization approved. Confirmed via telephone call with automated voice messaging system. Prior authorization number #[id number] documented in this encounterHighland District Hospital09-04-2025 History of Present illness Narrative* Mukul Noyola MD - 01/01/2025 2:30 PM EDT Images from the original note were not included. Video Visit via Real-time Synchronous Audiovisual Provider Location: [facility] AT [address] [address] Patient Location: Other [facility] Patient Location Funeral Director/Embalmer: None Video Visit Consent Statement: I discussed [...] that there are some limitations compared to poae-wg-shat evaluations. We elected to proceed. [facility] Maternal- Medicine Consult Note Reason For [...] will be undergoing genetic testing through the poacher wringer operator. There is family history of hypospadias [...] Anemia Antiphospholipid antibody syndrome Cerebral infarction, unspecified ([facility]) 05/16/2019 Hypothyroid Migraine without aura and without status migrainosus, not intractable 09/12/2017 Stroke ([facility]) 2015 PSHIST: Past Surgical History: Procedure [...] contrast; Future - [facility] - [place], [place]; Future 2. Antiphospholipid syndrome complicating , antepartum - Echo complete W/O contrast; Future - [facility] [place], [place]; Future 3. History of stroke 4. [...] intermittent symptoms concerning for an autoimmune condition [id number]. I recommended she sees a airplane mechanic apprentice. Referral given. I asked her to hold [...] supposed to undergo genetic testing with her poacher wringer operator. After the patient left I found [...] asymptomatic I recommend that she sees a digital product specialist and she desires referral locally. Recommendations: - increase metformin to 1500 mg at night - she is willing to try the NPH 8 units at night - to continue to send blood glucoses to [facility] to review - follow-up survey and echocardiogram [...] Mukul Noyola MD, FACOG (she/hers) Maternal- Medicine [facility] [address] 1st [place] [address] This document was created with Trevena technology. Though I make every effort to review the dictation as it is transcribed, on occasion the spoken word can be misinterpreted by the technology leading to inappropriate words, phrases, or sentences. This note is addressed to the requesting provider as a consultation for clinical guidance. Specificmedical abbreviations are occasionally used and those are generally approved by the [place]?Board of?Obstetrics and?Gynecology?as well as?Elizabeth s abbreviations. The above plan of care was based solely on the diagnoses for which a consultation was requested. ?More frequent testing may be indicated based on her other medical/obstetrical conditions. The management of other or medical conditions is beyond the scope of requested consultation and will c taniaue to be followed by the primary oil burner or primary care provider. Note to patient: [...] male Have you been seen here at [facility] in a previous ? yes Recent ER visits or hospitalizations? Seen in L&D for cramping about 2 weeks ago Bring blood sugar log or meter with you today? (Please bring them with you for every visit at [facility]) scanned to media tab Flu vaccine (Feb-June)? no Any concerns that you would like me to mention to the provider today? No concerns documented in this encounterMercer County Community HospitalLengow Vceseu29-01-0739 Miscellaneous Notes* Telephone Encounter - PRISCILLA Del [...] and basics of CGM explained. Will send Wrike message with instructions on how to connect to our [facility] account. Explained how to prudence notes on the Jenifer kennedy for fasting BG and meals. documented in this encounterMercer County Community Hospitalhaystagg Memorial HealthcareUrleaj02-18-9531 Telephone encounter Note* Telephone Encounter - PRISCILLA [...] and basics of CGM explained. Will send Wrike message with instructions on how to connect to our [facility] account. Explained how to prudence notes on the Jenifer kennedy for fasting BG and meals. [facility]08-26-2025 NoteHNO ID: [id number] Author: KATHERINE NEGRETE APRN.MASTER CONTROL TECHNICIAN Service: ? Author Type: Nurse Practitioner Type: Progress Notes Filed: 12/24/2024 21:07 Note Text: NAME: Sanna Rendon CLINIC NO.: [id number] DATE OF SERVICE: December 23, 2024 (Penelope) [...] later in 2018. These were found in [place], [place]. I don't have access to these [...] rash shortly before presenting to [facility] in 2016 with headaches and was [...] g/dL, and platelets a (more content not included)...[facility]08-26-2025 History of Present illness Narrative* Katherine Negrete APRN.MASTER CONTROL TECHNICIAN - 12/23/2024 11:50 AM EDT Images from the original note were not included. NAME: Sanna Rendon CLINIC NO.: [id number] DATE OF SERVICE: December 23, 2024 (Penelope) [...] later in 2018. These were found in [place], [place]. I don't have access to these [...] rash shortly before presenting to [facility] in 2016 with headaches and was [...] Monge soon. When she hada stroke in [place], she had symptoms up to a month before: uncontrollable headache, BP was elevated, knee stiffness, and blurry vision. Right facial drooping and difficulty [facility] She continues to take vitamins. Updated Visit, [...] and stayed on Lovenox Hgb 13.1 @ [facility] Recommended ER if [...] and at age 69. Both lived in [place], [place] - but she was adopted. She was not able to see ID in October and will be seeing Dr. Baugh next week. Also will have her see Dr. Hamlin for her clotting disorder and make any other recommendations to optimize her treatment. Updated Visit, October 08, 2020: Telephone only Received call from pt stating she was seen in [facility] ER for numbness in her chest, throat, and extremities, and sob which has been worsening over the last week. We arranged a telephone visit for her toreview questions with me. Sanna Rendon is a 34 year old female seen for Hypercoagulable state and recent concerns and symptoms that required her to be seen at [facility] ER. She went to the ER with Gradual worsening of breathing after progressive tingling of fingers and legs. She currently remains very fatigued even though she is sleeping well. Now recalls that before her stroke she remembers having a bull's eye rash and was seen with severe headaches in [place], [place] - was found to have a [...] a root canal and was sent to [facility] for MRI which [...] history goes back to January 2016 in [facility] where she had persisting headaches and slurred speech followed by lower extremity weakness. This took a few months to resolve and she is back to her normal state of being but some point in time during her her next she was seen by Dr. Humera Hyde in [place] as well and was found to have [...] which included preparing to see the patient, [id number] patient care, completing clinical documentation, obtaining and/or reviewing separately obtained history, performing a medically appropriate examination, counseling and educating the pat ient/family/caregiver, ordering medications, tests, or procedures, independently interpreting results (not separately reported), and communicating results to the patient/family/caregiver. Katherine Negrete APRN.CNP Hematology and Oncology Services Provided at: [place], [place] CC: MD Wilton Day, [address] [place] [address] Humaira Gaviria MD [address] [place] [address] MD Cosmo Kingston MD Michael Blank, MD documented in this encounterThe Christ Hospital08-20-2025 History of Present illness Narrative* Alisa Saba APRN-MASTER CONTROL TECHNICIAN - 12/17/2024 3:30 PM EDT REASON FOR OFFICE VISIT: Video Visit via Real-time Synchronous Audiovisual Provider Location: [facility] AT [address] [address] Patient Location: Patient's home Video Visit Consent [...] that there are some limitations compared to juav-fq-ddew evaluations. The patient consented to the presence [...] TSH 1.25 10/28/2024 No results found for: [id number] No results found for: CREATININE , BUN [...] by e-mail to: or by fax to: [phone] TIME OF CONSULTATION: 45 minutes with the patient, >50% in discussion and counseling, coordination of care which was [id number], review of records and communication back to referring provider. BRENNEN Guillen 12/17/24 1619 documented in this encounterHighland District Hospital08-15-2025 Miscellaneous Notes* Telephone Encounter - PRISCILLA [...] 12/17/2024. Sanna verbalized understanding. documented in this encounterHighland District Hospital08-15-2025 Telephone encounter Note* Telephone Encounter - [...] Alisa Saba APRN 12/17/2024. Sanna verbalized understanding. [facility] Work Phone: 1(527) 801-688408-15-2025 Miscellaneous Notes* Telephone Encounter - PRISCILLA Sutherland [...] tried higher fiber snacks in the evening. Pathology Secretary told her that I would relay her concerns to [facility] physician and get back to her. Obtained blood sugars for this week and will scan them into her chart. documented in this encounterHighland District Hospital08-15-2025 Telephone encounter Note* Telephone Encounter - [...] tried higher fiber snacks in the evening. Pathology Secretary told her that I would relay her concerns to [facility] physician and get back to her. Obtained blood sugars for this week and will scan them into her chart. [facility] Work Phone: 1(915) 404-134208-14-2025 History of Present illness Narrative* Rosi Murray, [...] adult 11/15/2023 Cerebral infarction, unspecified ([facility]) 05/16/2019 Cerebrovascular accident (CVA) due to stenosis of middle cerebral artery ([facility]) 02/22/2020 Cervicalgia 02/05/2019 Chromosomal abnormality in [...] symptoms 08/19/2021 Gestational diabetes mellitus (GDM) affecting ([facility]) 01/26/2022 [...] ([facility]) 06/05/2019 lobsterman (current) use of antithrombotics/antiplatelets 02/05/2019 Migraine without [...] infection 06/12/2023 SVT (supraventricular tachycardia) ([facility]) 08/26/2019 Syncope and collapse 06/03/2018 Other [...] drainage of cyst WISDOM TOOTH EXTRACTION 2007 Robertson teeth REVIEW OF SYSTEMS Review of Systems: [...] nursing note reviewed. Exam conducted with a software systems analyst present. Vitals: Estimated body mass index is 33.41 kg/m as calculated from the following: Height as of 11/19/23: 5' 6 . Weight as of this encounter: 207 lb. BP: 120/70 Patient's last menstrual period was 07/28/2024. ASSESSMENT & PLAN ICD-10-CM 1. 19 weeks gestation of ([facility]) Z3A.19 POCT urinalysis dipstick manually resulted 2. Second trimester ([facility]) Z34.92 POCT urinalysis dipstick manually resulted 3. Thyroid disease E07.9 4. Multigravida of advanced maternal age in second trimester ([facility]) O09.522 5. Gestational diabetes mellitus (GDM), antepartum, gestational diabetes method of control unspecified ([facility]) O24.419 Patient presents today for a routine [...] scan and Telemedicine with MFM provider in [place]. Documented by Rosi Murray LPN on behalf of: Wilton Herrmann DO documented in this encounterRanken Jordan Pediatric Specialty HospitalAcotrchnwr47-07-4349 Miscellaneous Notes* Telephone Encounter - Anni Abreu CMA - 12/03/2024 3:01 PM EDT Left message with patient to call our office to schedule her next appt in 2 week with an SLICING MACHINE OPERATOR/TENDER/PA. Left call back number and to press option 3 for scheduling. documented in this encounterHighland District Hospital08-06-2025 Telephone encounter Note* Telephone Encounter - Anni Abreu CMA - 12/03/2024 3:01 PM EDT Left message with patient to call our office to schedule her next appt in 2 week with an SLICING MACHINE OPERATOR/TENDER/PA. Left call back number and to press option 3 for scheduling. [facility]08-06-2025 History of Present illness Narrative* Alisa Tori, VICTOR HUGO-MASTER CONTROL TECHNICIAN - 12/03/2024 2:00 PM EDT REASON FOR [...] starting insulin. She is being followed at [facility] due to GDMA2. States she [...] TSH 1.25 10/28/2024 No results found for: [id number] No results found for: CREATININE , BUN [...] baby. Little research has been done on residential effects of Metformin exposure to the fetus. [...] by e-mail to: or by fax to: [phone] TIME OF CONSULTATION: 60 minutes with the patient, >50% in discussion and counseling, coordination of care which was [id number], review of records and communication back to referring provider. BRENNEN Guillen 12/03/24 1500 documented in this encounterMercer County Community Hospitalhaystagg Memorial HealthcareShaitp43-54-2410 History of Present illness Narrative* Rosi Murray [...] adult 11/15/2023 Cerebral infarction, unspecified ([facility]) 05/16/2019 Cerebrovascular accident (CVA) due to stenosis of middle cerebral artery ([facility]) 02/22/2020 Cervicalgia 02/05/2019 Chromosomal abnormality in [...] symptoms 08/19/2021 Gestational diabetes mellitus (GDM) affecting ([facility]) 01/26/2022 [...] ([facility]) 06/05/2019 lobsterman (current) use of antithrombotics/antiplatelets 02/05/2019 Migraine without [...] infection 06/12/2023 SVT (supraventricular tachycardia) ([facility]) 08/26/2019 Syncope and collapse 06/03/2018 Other [...] Date AMA (advanced maternal age) multigravida 35+ ([facility]) Anemia Antiphospholipid syndrome ([facility]) Gestational diabetes ([facility]) Heartburn Hypothyroid Stroke (HCC) HISTORY PAST MEDICAL HISTORY SOCIAL HISTORY Past Medical History: Diagnosis Date AMA (advanced maternal age) multigravida 35+ ([facility]) Anemia Antiphospholipid syndrome ([facility]) Gestational diabetes ([facility]) Heartburn Hypothyroid Stroke (HCC) Social History [...] drainage of cyst WISDOM TOOTH EXTRACTION 2007 Robertson teeth REVIEW OF SYSTEMS Review of Systems: [...] nursing note reviewed. Exam conducted with a software systems analyst present. Vitals: Estimated body mass index is 33.57 kg/m as calculated from the following: Height as of 11/19/23: 5' 6 . Weight as of this encounter: 208 lb. BP: 108/76 Patient's last menstrual period was 07/28/2024. ASSESSMENT & PLAN ICD-10-CM 1. Second trimester ([facility]) Z34.92 Alpha fetoprotein, maternal Alpha fetoprotein, maternal 2. 16 weeks gestation of ([facility]) Z3A.16 POCT urinalysis dipstick manually resulted 3. Screening, , for anatomic survey ([facility]) Z36.89 CANCELED: US OB 14+ weeks anatomy [...] of: Wilton Herrmann DO documented in this encounterRanken Jordan Pediatric Specialty HospitalOclkqedhal39-19-3040 Group counseling note* Group Note - Cindy [...] Face to face time was 100 minutes. [facility] Work Phone: [phone]) 138-636307-23-2025 Miscellaneous Notes* Group Note - Cindy Miller [...] time was 100 minutes. documented in this encounterHighland District Hospital07-09-2025 Telephone encounter Note* Telephone Encounter - [...] verified for RTC Rachael Johnson RN [facility]07-09-2025 Miscellaneous Notes* Telephone Encounter - Rachael [...] were not included. documented in this encounterThe Christ Hospital07-09-2025 Telephone encounter Note * Telephone Encounter - Katherine Negrete APRN.CNP - 11/05/2024 12:29 PM EDT Spoke with Dr. Moscoso and she is to continue Lovenox 40 daily and add baby asa (81 mg) daily. Please also make sure she is following OB High risk. Labs acceptable at this time. Will monitor. Thanks, Kahterine Negrete APRN.MASTER CONTROL TECHNICIAN [facility] Work Phone: [phone]) 308-376307-08-2025 Telephone encounter Note* Telephone Encounter - Abbie Jimenez PA-C - 11/04/2024 8:13 AM EDT Katherine saw this patient last and will be able to advise better of the plan of care. Abbie Jimenez PA-C [facility] Work Phone: [phone] 438-486207-03-2025 History of Present illness Narrative* Rosi Murray [...] adult 11/15/2023 Cerebral infarction, unspecified ([facility]) 05/16/2019 Cerebrovascular accident (CVA) due to stenosis of middle cerebral artery ([facility]) 02/22/2020 Cervicalgia 02/05/2019 Chromosomal abnormality in [...] symptoms 08/19/2021 Gestational diabetes mellitus (GDM) affecting ([facility]) 01/26/2022 [...] ([facility]) 06/05/2019 USP (current) use of antithrombotics/antiplatelets 02/05/2019 Migraine without aura and without status migrainosus, not intractable 09/12/2017 Morbid obesity ([facility]) 11/15/2023 Muscle fasciculation 08/19/2021 Nasal polyps 11/15/2023 [...] infection 06/12/2023 SVT (supraventricular tachycardia) ([facility]) 08/26/2019 Syncope and collapse 06/03/2018 Other [...] Date AMA (advanced maternal age) multigravida 35+ ([facility]) Anemia Antiphospholipid syndrome ([facility]) Gestational diabetes ([facility]) Heartburn Hypothyroid Stroke ([facility]) HISTORY PAST MEDICAL HISTORY SOCIAL HISTORY Past Medical History: Diagnosis Date AMA (advanced maternal age) multigravida 35+ ([facility]) Anemia Antiphospholipid syndrome ([facility]) Gestational diabetes ([facility]) Heartburn Hypothyroid Stroke ([facility]) Social History Tobacco Use Smoking status: [...] drainage of cyst WISDOM TOOTH EXTRACTION 2007 Robertson teeth REVIEW OF SYSTEMS Review of Systems: [...] nursing note reviewed. Exam conducted with a software systems analyst present. Vitals: Estimated body mass index is 33.81 kg/m as calculated from the following: Height as of 11/19/23: 5' 6 . Weight as of this encounter: 209 lb 8 oz. BP: 110/76 Patient's last menstrual period was 07/28/2024. ASSESSMENT & PLAN ICD-10-CM 1. Second trimester ([facility]) Z34.92 POCT urinalysis dipstick manually resulted 2. 13 weeks gestation of ([facility]) Z3A.13 3. Thyroid disease E07.9 4. Multigravida of advanced maternal age in second trimester ([facility]) O09.522 New OB: Patient presents today for [...] away from [facility]. Patient has been consulted regarding any further do's and don'tsof . Patient voiced understanding and all questions and concerns were answered. Patient is currently on 40 Lovenox and will be referred to [facility] for recommendations/co-management throughout . Discussed concerns in [...] of: Wilton Herrmann DO documented in this encounterRanken Jordan Pediatric Specialty HospitalBjiamshtij82-95-2401 Telephone encounter Note* Telephone Encounter - Valeri Yeung RN - 10/30/2024 8:30 AM EDT Labs resulted. Please advise. Valeri Yeung RN [facility]07-01-2025 Telephone encounter Note* Telephone Encounter - Roberta Haskins - 10/28/2024 2:52 PM EDT Images from the original note were not included. [facility]07-01-2025 NoteHNO ID: [id number] Author: KATHERINE NEGRETE APRN.MASTER CONTROL TECHNICIAN Service: ? Author Type: Nurse Practitioner Type: Progress Notes Filed: 10/29/2024 21:44 Note Text: NAME: Sanna Rendon CLINIC NO.: [id number] DATE OF SERVICE: October 28, 2024 (Penelope) [...] later in 2018. These were found in [place], [place]. I don't have access to these [...] rash shortly before presenting to [facility] in 2016 with headaches and was [...] vision changes both have (more content not included)...[facility]07-01-2025 History of Present illness Narrative* Katherine Negrete APRN.MASTER CONTROL TECHNICIAN - 10/28/2024 2:33 PM EDT Images from the original note were not included. NAME: Sanna Rendon CLINIC NO.: [id number] DATE OF SERVICE: October 28, 2024 (Penelope) [...] later in 2018. These were found in [place], [place]. I don't have access to these [...] rash shortly before presenting to [facility] in 2016 with headaches and was [...] Monge soon. When she hada stroke in [place], she had symptoms up to a month before: uncontrollable headache, BP was elevated, knee stiffness, and blurry vision. Right facial drooping and difficulty [facility] She continues to take vitamins. Updated Visit, [...] and stayed on Lovenox Hgb 13.1 @ [facility] Recommended ER if [...] and at age 69. Both lived in [place], [place] - but she was adopted. She was not able to see ID in October and will be seeing Dr. Baugh next week. Also will have her see Dr. Hamlin for her clotting disorder and make any other recommendations to optimize her treatment. Updated Visit, October 08, 2020: Telephone only Received call from pt stating she was seen in [facility] ER for numbness in her chest, throat, and extremities, and sob which has been worsening over the last week. We arranged a telephone visit for her chanw questions with me. Sanna Rendon is a 34 year old female seen for Hypercoagulable state and recent concerns and symptoms that required her to be seen at [facility] ER. She went to the ER with Gradual worsening of breathing after progressive tingling of fingers and legs. She currently remains very fatigued even though she is sleeping well. Now recalls that before her stroke she remembers having a bull's eye rash and was seen with severe headaches in [place], [place] - was found to have a [...] a root canal and was sent to [facility] for MRI which [...] history goes back to January 2016 in [facility] where she had persisting headaches and slurred speech followed by lower extremity weakness. This took a few months to resolve and she is back to her normal state of being but some point in time during her her next she was seen by Dr. Humera Hyde in [place] as well and was found to have [...] which included preparing to see the patient, [id number] patient care, completing clinical documentation, obtaining and/or reviewing separately obtained history, performing a medically appropriate examination, counseling and educating the pat ient/family/caregiver, ordering medications, tests, or procedures, independently interpreting results (not separately reported), and communicating results to the patient/family/caregiver. Katherine Negrete APRN.TOR Hematology and Oncology Services Provided at: [place], [place] CC: MD Chal[facility] [address] [place] [address] Humaira Gaviria MD [address] [place] [address] MD Cosmo Kingston MD Michael Blank, MD documented in this encounterThe Christ Hospital06-27-2025 Telephone encounter Note * Telephone Encounter - Kaur Dunham MA - 10/24/2024 2:14 PM EDT New orders may need placed for appt on 10/28. Kaur Dunham MA [facility]06-27-2025 Miscellaneous Notes* Telephone Encounter - Kaur Dunham MA - 10/24/2024 2:14 PM EDT New orders may need placed for appt on 10/28. Kaur Dunham MA documented in this encounterThe [facility]06-[facility] Miscellaneous Notes* Telephone Encounter - Margo Khan RN - 10/13/2024 12:14 PM EDT Attempted to contact patient x3, call cannot be completed, cannot receive calls at this time. Unable to leave a voicemail. [facility] Telephone encounter Note* Telephone Encounter - Margo Khan RN - 10/13/2024 12:14 PM EDT Attempted to contact patient x3, call cannot be completed, cannot receive calls at this time. Unable to leave a voicemail. [facility]06[facility] History of Present illness Narrative* Lala [...] antibody positive 09/10/2017 Antiphospholipid antibody syndrome ([facility]) 07/07/2019 Anxiety 06/12/2023 Blood pressure elevated without history of HTN 11/15/2023 BMI 37.0-37.9, adult 11/15/2023 Cerebral infarction, unspecified 05/16/2019 Cerebrovascular accident (CVA) due to stenosis of middle cerebral artery ([facility]) 02/22/2020 Cervicalgia 02/05/2019 Chromosomal abnormality in [...] Less than 8 weeks gestation of 06/05/2019 USP (current) use of antithrombotics/antiplatelets 02/05/2019 Migraine without aura and without status migrainosus, not intractable ([facility]) 09/12/2017 Morbid obesity ([facility]) 11/15/2023 Muscle fasciculation 08/19/2021 Nasal polyps [...] 01/16/2020 Pre-diabetes 11/15/2023 Primary hypercoagulable state ([facility]) 08/01/2022 Pruritus, unspecified 01/02/2020 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[facility]) 06/12/2023 Raised antibody titer 09/25/2017 Right lower quadrant pain 11/15/2023 Right otitis externa 11/15/2023 Salivary gland swelling 11/15/2023 Single live 01/15/2020 Snoring 11/15/2023 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) 12/30/2019 Suspected severe acute respiratory syndrome coronavirus 2 (SARS-CoV-2) infection 06/12/2023 SVT (supraventricular tachycardia) ([facility]) 08/26/2019 Syncope and collapse 06/03/2018 Other [...] (CMS/HCC) Gestational diabetes Heartburn Hypothyroid (CMS/HCC) Stroke ([facility]) Family History Problem Relation Name Age [...] drainage of cyst WISDOM TOOTH EXTRACTION 2007 [place] teeth Allergies Allergen Reactions Ciprofloxacin GI intolerance [...] TSH Nurse Note: Patient desires to have Binger billion to one. Pt was advised to [...] by: Lala Hess MA documented in this encounterRanken Jordan Pediatric Specialty [id number] NotePatient Education Infectious Disease Upper Respiratory Infection, [...] to help relieve symptoms, such as: ??? Kxsb-hoc-lapbsil cold medicines. ??? Cough suppressants. Coughing is [...] other clear broths. General instructions ??? Take muhf-ypz-znyulsf and prescription medicines only as told by [...] and water are not available, use hand block sorter. ??? Avoid touching your mouth, face, eyes, [...] a stiff neck. ? (more content not included)...[facility]05-07-2025 Miscellaneous Notes* Telephone Encounter [...] Rachael Johnson RN documented in this encounterThe [facility] Hospital05-07-2025 Telephone encounter Note * Telephone Encounter - Rachael Johnson RN - 09/03/2024 1:25 PM EDT Pt notified and appt for September. She denies any further questions, needs or concerns at thistime. Rachael Johnson RN [facility]05-07-[facility] Telephone encounter Note* Telephone Encounter - Kristofer Calix MD - 09/03/2024 12:51 PM EDT No change in meds. [facility]-06-[facility] Telephone encounter Note* Telephone Encounter - Rachael Johnson RN - 09/02/2024 9:37 AM EDT Pt left a voicemail to inform she is approximately 5 weeks . She is asking any recommendations on med changes. Pt missed today's appt. Called and left VM to please call and schedule missed follow up MUNIRA. Fely: Please advise Rachael Johnson RN [facility]04-29-2025 Telephone encounter Note* Telephone Encounter - Serina Dawson MA - 08/26/2024 3:41 PM EDT Patient has an appt on 08/27/24. Would you like labs, if so place orders. Serina Dawson MA [facility]04-29-2025 Miscellaneous Notes* Telephone Encounter - Serina Horton MA - 08/26/2024 3:41 PM EDT Patient has an appt on 08/27/24. Would you like labs, if so place orders. Serina Dawson MA documented in this encounterThe [facility] Hospital04-08-2025 Evaluation + Plan note Future Scheduled Tests Laboratory* HgbA1c 08/05/24 * HgbA1c 11/04/24 Radiology* CT Soft Tissue Neck w/ Contrast 11/12/[address] 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 Coagulation defect, unspecified ([facility]) 02/05/2019 Cold intolerance 11/15/2023 Deficiency of other [...] Less than 8 weeks gestation of 06/05/2019 USP (current) use of antithrombotics/antiplatelets 02/05/2019 Migraine without aura and without status migrainosus, not intractable ([facility]) 09/12/2017 Morbid obesity ([facility]) 11/15/2023 Muscle fasciculation 08/19/2021 Nasal polyps [...] 2 (SARS-CoV-2) infection 06/12/2023 SVT (supraventricular tachycardia) ([facility]) 08/26/2019 Syncope and collapse 06/03/2018 Other bacterial [...] drainage of cyst WISDOM TOOTH EXTRACTION 2007 [place] teeth REVIEW OF SYSTEMS Review of Systems: [...] nursing note reviewed. Exam conducted with a software systems analyst present. Vitals: Estimated body mass index is [...] of: Wilton Herrmann DO documented in this encounterRanken Jordan Pediatric Specialty [id number] NotePatient Education Emergency Medicine Bradycardia, Adult Bradycardia is a oghpvw-ctyn-axgggt heartbeat. A normal resting heart rate for [...] provider. ??? Follow a heart-healthy diet. A livestock nutrition territory manager (dietitian) can help educate you about [...] liquor (44 mL). General instructions ??? Take yidi-czj-tpewdjv and prescription medicines only as told by [...] irregular heartbeat (palpitations). ??? (more content not included)...[facility]03-03-2025 Hospital Discharge instructions Patient [...] Follow these instructions at home: Medicines Give jrej-yqb-gmmztud and prescription medicines only as told by [...] find more information PANDAS Network: pandasnetwork.org National Garfield of Mental Health: [facility].nih.gov Contact a health care provider [...] the National Suicide Prevention Lifeline at or 324. This is open 24 hours a day. Text the Crisis Text Line at 932833. Summary Pediatric autoimmune neuropsychiatric disorders associated with [...] provider. Document Revised: 01/09/2022 Document Reviewed: 01/09/2022 [employer] Patient Education 2023 [employer]. 06/30/2024 09:20:50 Common Variable Immunodeficiency Common Variable [...] Follow these instructions at home: Medicines Take rjsw-emy-lopumey and prescription medicines only as told by [...] disease. Where to find more information National Garfield of Allergy and Infectious Disease: www.niaid.nih.gov Contact [...] risk for frequent or unusual infections. Take gyrc-wkg-ojomsom and prescription medicines only as told by [...] provider. Document Revised: 11/18/2021 Document Reviewed: 11/18/2021 [employer] Patient Education 2023 [employer]. 06/30/2024 09:18:06 DASH Eating Plan DASH Eating [...] Dairy Whole or 2% milk, cream, and wqck-fhn-zcsy. Whole or full-fat cream cheese. Whole-fat or [...] more information National Heart, Lung, and Blood Garfield (NHLBI): nhlbi.nih.gov [place] Heart Association (AHA): heart.org Academy of Nutrition and Dietetics: eatright.org National Kidney Foundation (NKF): kidney.org This information is not intended to replace advice given to you by your health care provider. Make sure you discuss any questions you have with your health care provider. Document Revised: 05/03/2023 Document Reviewed: 05/03/2023 Elsevier Patient Education 2023 [employer] Follow Up Care 06/25/2024 13:53:59 With:PRAVEEN RESENDEZ FAAFP, CHRIS Perez, PED Address: [place] [address]- When:Within 2 Month(s) [facility] 03-03-2025 NotePatient Education Immunology [...] these instructions at home: Medicines ??? Take seps-mgo-jpcglrs and prescription medicines only as told by [...] Where to find more information ??? National Garfield of Allergy and Infectious Disease: www.niaid.nih.gov Contact a health care provider if: ??? You have a fever. ??? You have any symptoms of infection such as chills, worsening cough, or severe earache. ??? You make high-pitched whistling sounds when you breathe, most often when you breathe out (wheeze). 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 Coagulation defect, unspecified ([facility]) 02/05/2019 Cold intolerance 11/15/2023 Deficiency of [...] Less than 8 weeks gestation of 06/05/2019 USP (current) use of antithrombotics/antiplatelets 02/05/2019 Migraine without aura and without status migrainosus, not intractable ([facility]) 09/12/2017 Morbid obesity ([facility]) 11/15/2023 Muscle fasciculation 08/19/2021 Nasal polyps [...] 01/16/2020 Pre-diabetes 11/15/2023 Primary hypercoagulable state ([facility]) 08/01/2022 Pruritus, unspecified 01/02/2020 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[facility]) 06/12/2023 Raised antibody titer 09/25/2017 Right lower quadrant pain 11/15/2023 Right otitis externa 11/15/2023 Salivary gland swelling 11/15/2023 Single live 01/15/2020 Snoring 11/15/2023 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) 12/30/2019 Suspected severe acute respiratory syndrome coronavirus 2 (SARS-CoV-2) infection 06/12/2023 SVT (supraventricular tachycardia) ([facility]) 08/26/2019 Syncope and collapse 06/03/2018 Other bacterial infections of unspecified site 06/27/2019 Thrombocytopenia, unspecified ([facility]) 11/20/2019 Hypoglycemia 06/12/2023 Unspecified condition associated with female genital organs and menstrual cycle 05/09/2019 Unspecified ovarian cyst, right side 02/06/2019 Urinary tract infection 10/16/2019 Referred otalgia of right ear 11/19/2023 LPRD (laryngopharyngeal reflux disease) 11/19/2023 Resolved Ambulatory Problems Diagnosis Date Noted No Resolved Ambulatory Problems Past Medical History: Diagnosis Date AMA (advanced maternal age) multigravida 35+ Anemia Antiphospholipid syndrome ([facility]) Gestational diabetes Heartburn Hypothyroid ([facility]) Stroke ([facility]) HISTORY PAST MEDICAL HISTORY SOCIAL HISTORY Past Medical History: Diagnosis Date AMA (advanced maternal age) multigravida 35+ Anemia Antiphospholipid syndrome ([facility]) Gestational diabetes Heartburn Hypothyroid ([facility]) Stroke ([facility]) Social History Tobacco Use Smoking status: [...] drainage of cyst WISDOM TOOTH EXTRACTION 2007 [place] teeth REVIEW OF SYSTEMS Review of Systems: [...] nursing note reviewed. Exam conducted with a software systems analyst present. Vitals: Estimated body mass index is [...] of: Wilton Herrmann DO documented in this encounterRanken Jordan Pediatric Specialty [id number] Hospital Discharge instructions Patient Education 06/09/2024 14:23:47 [...] Do not chew gum. General instructions Take cjdp-oia-ipxpkks and prescription medicines only as told by [...] important. Where to find more information National Garfield of Dental and Craniofacial Research: www.nidcr.nih.gov Contact [...] provider. Document Revised: 11/27/2021 Document Reviewed: 11/27/2021 [employer] Patient Education 2023 [employer]. Follow Up Care 06/06/2024 11:26:13 With:PRAVEEN RESENDEZ FAAFP, Penelope Tony, CHRIS, PED Address: [address], [place] [address]- When:Within 6 Month(s) [facility] 02-10-2025 NotePatient Education Orthopedics [...] not chew gum. General instructions ??? Take vlyk-hya-kjaoerv and prescription medicines only as told by [...] Where to find more information ??? National Garfield of Dental and Craniofacial Research: www.nidcr.nih.gov Contact [...] provider. Document Revised: 11/27/2021 Document Reviewed: 11/27/2021 [employer] Patient Education ? 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 Coagulation defect, unspecified ([facility]) 02/05/2019 Cold intolerance 11/15/2023 Deficiency of [...] Less than 8 weeks gestation of 06/05/2019 lobsterman (current) use of antithrombotics/antiplatelets 02/05/2019 Migraine without aura and without status migrainosus, not intractable ([facility]) 09/12/2017 Morbid obesity ([facility]) 11/15/2023 Muscle fasciculation 08/19/2021 Nasal polyps [...] 01/16/2020 Pre-diabetes 11/15/2023 Primary hypercoagulable state ([facility]) 08/01/2022 Pruritus, unspecified 01/02/2020 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[facility]) 06/12/2023 Raised antibody titer 09/25/2017 Right lower quadrant pain 11/15/2023 Right otitis externa 11/15/2023 Salivary gland swelling 11/15/2023 Single live 01/15/2020 Snoring 11/15/2023 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) 12/30/2019 Suspected severe acute respiratory syndrome coronavirus 2 (SARS-CoV-2) infection 06/12/2023 SVT (supraventricular tachycardia) ([facility]) 08/26/2019 Syncope and collapse 06/03/2018 Other bacterial infections of unspecified site 06/27/2019 Thrombocytopenia, unspecified ([facility]) 11/20/2019 Hypoglycemia 06/12/2023 Unspecified condition associated [...] drainage of cyst WISDOM TOOTH EXTRACTION 2007 [place] teeth REVIEW OF SYSTEMS Review of Systems: [...] nursing note reviewed. Exam conducted with a software systems analyst present. Vitals: Estimated body mass index is [...] Patient had recent HCG level drawn at [facility] 05/31/2024 lab value was 6. Documented by Renate Vegas LPN on behalf of: Wilton Herrmann DO documented in this encounterRanken Jordan Pediatric Specialty [id number] Telephone encounter Note* Telephone Encounter - Taylor Escudero - 05/28/2024 1:45 PM EST Triage to call with iron results [facility]01-29-2025 Miscellaneous Notes* Telephone Encounter - Taylor Escudero - 05/28/2024 1:45 PM EST Triage to call with iron results documented in this encounterThe Christ Hospital01-29-2025 Instructions* Patient Instructions* Nathaly Florence - 05/28/2024 1:44 PM EST Triage to call iron results Continue Lovenox - patient prefers 40 mg (rather than rec 80mg) Encouraged her to reconsider Take B12 supplement in the form of a sublingual tablet RTC in 3 months Labs same day or 2-7 days prior documented in this encounterThe Christ Hospital01-29-2025 History of Present illness Narrative* Kristofer Calix MD - 05/28/2024 1:00 PM EST Images from the original note were not included. NAME: Sanna Rendon CLINIC NO.: [id number] DATE OF SERVICE: May 28, 2024 (Levon) [...] later in 2018. These were found in [place], [place]. I don't have access to these [...] rash shortly before presenting to [facility] in 2015 with headaches and was [...] Monge soon. When she hada stroke in [place], she had symptoms up to a month before: uncontrollable headache, BP was elevated, knee stiffness, and blurry vision. Right facial drooping [facility] difficulty [facility] to [facility]. Updated Visit, [...] and stayed on Lovenox Hgb 13.1 @ [facility] Recommended ER if [...] and at age 69. Both lived in [place], [place] - but she was adopted. She was not able to see ID in October and will be seeing Dr. Baugh next week. Also will have her see Dr. Hamlin for her clotting disorder and make any other recommendations to optimize her treatment. Updated Visit, October 08, 2020: Telephone only Received call from pt stating she was seen in [facility] ER for numbness in her chest, throat, and extremities, and sob which has been worsening over the last week. We arranged a telephone visit for her toreview questions with me. Sanna Rendon is a 34 year old female seen for Hypercoagulable state and recent concerns and symptoms that required her to be seen at [facility] ER. She went to the ER with Gradual worsening of breathing after progressive tingling of fingers and legs. She currently remains very fatigued even though she is sleeping well. Now recalls that before her stroke she remembers having a bull's eye rash and was seen with severe headaches in [place], [place] - was found to have a [...] a root canal and was sent to [facility] for MRI which [...] history goes back to January 2016 in [facility] where she had persisting headaches and slurred speech followed by lower extremity weakness. This took a few months to resolve and she is back to her normal state of being but some point in time during her her next she was seen by Dr. Humera Hyde in [place] as well and was found to have [...] which included preparing to see the patient, alxa-ur-qcad patient care, completing clinical documentation, performing a medically appropriate examination, counseling and educating the patient/family/caregiver, ordering medications, tests, or p rocedures, independently interpreting results (not separately reported), communicating results to the patient/family/caregiver, and care coordination (not separately reported). Kristofer Calix MD, CPE Hematology and Oncology Services Provided at: [place], [place] Scribe Attestation: This note was scribed [...] under my direction. CC: MD Wilton Day, [address] [place] [address] Humaira Gaviria MD [address] [place] [address] [place] [address] MD Cosmo Kingston MD Michael Blank, MD documented in this encounterThe [facility] Hospital01-29-2025 NoteHNO ID: [id number] Author: KRISTOFER CALIX MD Service: ? Author Type: Physician Type: Progress Notes Filed: 05/29/2024 09:13 Note Text: NAME: Sanna Rendon CLINIC NO.: [id number] DATE OF SERVICE: May 28, 2024 (Levon) [...] later in 2018. These were found in [place], [place]. I don't have access to these [...] rash shortly before presenting to [facility] in 2016 with headaches and was [...] soon. When she had a stroke in [place], she had symptoms up to a month [...] breast feeding. Updated Visit, (more content not included)...[facility] 05-14-2024 Telephone encounter Note* Telephone Encounter - Rachael Johnson RN - 05/14/2024 10:15 AM EST Pt called to inform she had a miscarriage, Sunday (05/10/24) Asking if any additional blood work was needed from out standpoint. Pt aware we will be checking her CBC for any signs of anemia and her iron studies for deficiency. 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, we can certainly draw with her appt 05/21 (will just need to fax orders). She denies any further questions needs or concerns at this time. MARSHA Rushk: YANET [facility]01-15-2025 Miscellaneous Notes* Telephone Encounter - Rachael Johnson RN - 05/14/2024 10:15 AM EST Pt called to inform she had a miscarriage, Sunday (05/10/24) Asking if any additional blood work was needed from out standpoint. Pt aware we will be checking her CBC for any signs of anemia and her iron studies for deficiency. 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, we can certainly draw with her appt 05/21 (will just need to fax orders). She denies any further questions needs or concerns at this time. MARSHA Rushk: YANET documented in this encounterThe Christ Hospital01-15-2025 Telephone encounter Note * Telephone Encounter [...] thinnersat follow up appointment. [facility]--Rosi Presley LPN [facility] [id number] Miscellaneous Notes* Telephone Encounter - Rosi Murray [...] appointment. 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 antithrombotics/antiplatelets 02/05/2019 Migraine without aura and without status migrainosus, not intractable ([facility]) 09/12/2017 Morbid obesity ([facility]) 11/15/2023 Muscle fasciculation 08/19/2021 Nasal polyps [...] infections 01/16/2020 Pre-diabetes 11/15/2023 Primary hypercoagulable state ([facility]) 08/01/2022 Pruritus, unspecified 01/02/2020 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[facility]) 06/12/2023 Raised antibody titer 09/25/2017 Right lower quadrant pain 11/15/2023 Right otitis externa 11/15/2023 Salivary gland swelling 11/15/2023 Single live 01/15/2020 Snoring 11/15/2023 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) 12/30/2019 Suspected severe acute respiratory syndrome coronavirus 2 (SARS-CoV-2) infection 06/12/2023 SVT (supraventricular tachycardia) ([facility]) 08/26/2019 Syncope and collapse 06/03/2018 Other bacterial infections of unspecified site 06/27/2019 Thrombocytopenia, unspecified ([facility]) 11/20/2019 Hypoglycemia 06/12/2023 Unspecified condition associated with female genital organs and menstrual cycle 05/09/2019 Unspecified ovarian cyst, right side 02/06/2019 Urinary tract infection 10/16/2019 Referred otalgia of right ear 11/19/2023 LPRD (laryngopharyngeal reflux disease) 11/19/2023 Resolved Ambulatory Problems Diagnosis Date Noted No Resolved Ambulatory Problems Past Medical History: Diagnosis Date AMA (advanced maternal age) multigravida 35+ Anemia Antiphospholipid syndrome ([facility]) Gestational diabetes Heartburn Hypothyroid ([facility]) Stroke ([facility]) HISTORY PAST MEDICAL HISTORY SOCIAL HISTORY Past Medical History: Diagnosis Date AMA (advanced maternal age) multigravida 35+ Anemia Antiphospholipid syndrome ([facility]) Gestational diabetes Heartburn Hypothyroid ([facility]) Stroke ([facility]) Social History Tobacco Use Smoking status: [...] drainage of cyst WISDOM TOOTH EXTRACTION 2007 Robertson teeth REVIEW OF SYSTEMS Review of Systems: [...] nursing note reviewed. Exam conducted with a software systems analyst present. Vitals: Estimated body mass index is [...] urinalysis dipstick manually resulted documented in this encounterRanken Jordan Pediatric Specialty [id number] History of Present illness Narrative* Ariane Joseph [...] antibody positive 09/10/2017 Antiphospholipid antibody syndrome ([facility]) 07/07/2019 Anxiety 06/12/2023 Blood pressure elevated without history of HTN 11/15/2023 BMI 37.0-37.9, adult 11/15/2023 Cerebral infarction, unspecified ([facility]) 05/16/2019 Cerebrovascular accident (CVA) due to stenosis of middle cerebral artery ([facility]) 02/22/2020 Cervicalgia 02/05/2019 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 Coagulation defect, unspecified ([facility]) 02/05/2019 Cold intolerance 11/15/2023 Deficiency of [...] Less than 8 weeks gestation of 06/05/2019 USP (current) use of antithrombotics/antiplatelets 02/05/2019 Migraine without aura and without status migrainosus, not intractable ([facility]) 09/12/2017 Morbid obesity ([facility]) 11/15/2023 Muscle fasciculation 08/19/2021 Nasal polyps [...] 01/16/2020 Pre-diabetes 11/15/2023 Primary hypercoagulable state ([facility]) 08/01/2022 Pruritus, unspecified 01/02/2020 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[facility]) 06/12/2023 Raised antibody titer 09/25/2017 Right lower quadrant pain 11/15/2023 Right otitis externa 11/15/2023 Salivary gland swelling 11/15/2023 Single live 01/15/2020 Snoring 11/15/2023 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) 12/30/2019 Suspected severe acute respiratory syndrome coronavirus 2 (SARS-CoV-2) infection 06/12/2023 SVT (supraventricular tachycardia) ([facility]) 08/26/2019 Syncope and collapse 06/03/2018 Other bacterial infections of unspecified site 06/27/2019 Thrombocytopenia, unspecified ([facility]) 11/20/2019 Hypoglycemia 06/12/2023 Unspecified condition associated with female genital organs and menstrual cycle 05/09/2019 Unspecified ovarian cyst, right side 02/06/2019 Urinary tract infection 10/16/2019 Referred otalgia of right ear 11/19/2023 LPRD (laryngopharyngeal reflux disease) 11/19/2023 Resolved Ambulatory Problems Diagnosis Date Noted No Resolved Ambulatory Problems Past Medical History: Diagnosis Date AMA (advanced maternal age) multigravida 35+ Anemia Antiphospholipid syndrome ([facility]) Gestational diabetes Heartburn Hypothyroid ([facility]) Stroke ([facility]) Family History Problem Relation Name Age [...] drainage of cyst WISDOM TOOTH EXTRACTION 2007 [place] teeth Allergies Allergen Reactions Ciprofloxacin GI intolerance [...] by: Ariane Joseph LPN documented in this encounterRanken Jordan Pediatric Specialty [id number] Telephone encounter Note* Telephone Encounter - Rachael Johnson RN - 02/28/2024 8:21 AM EDT Pt aware and agreeable to plan of care. Pt denies any further questions, needs or concerns at this time. Appt verified for lab/follow up Rachael Johnson RN [facility]10-31-2024 Miscellaneous Notes* Telephone Encounter - Rachael [...] Rachael Johnson RN documented in this encounterThe Christ Hospital10-30-[facility]24 Telephone encounter Note * Telephone Encounter - Kristofer Calix MD - 02/27/2024 4:36 PM EDT She can take the iron with prenatals. We should March labs as scheduled. [facility]10-30-2024 Telephone encounter Note* Telephone Encounter - Rachael Johnson RN - 02/27/2024 9:41 AM EDT Pt 4 weeks and inquiring if she should have March's lab work completed now or wait until scheduled appt. Pt last labs completed 01/02/24. Pt also would like to know if it is okay to take with iron? Fely: Please advise Rachael Johnson RN [facility]10-08-2024 Hospital Discharge instructions Patient Education 02/05/2024 [...] condition. Follow these instructions at home: Take flie-hua-ztplzal and prescription medicines only as told by [...] and water are not available, use hand block sorter. Avoid contact with people who have cold [...] it is easier to cough up. Take tgpb-hci-umbrzdp and prescription medicines only as told by [...] provider. Document Revised: 07/27/2022 Document Reviewed: 08/17/2021 [employer] Patient Education 2023 [employer]. Follow Up Care 02/04/2024 08:47:42 With:PRAVEEN RESENDEZ FAAFP, CHRIS Perez, PED Address: [address] [place] [address], [facility] [place] [id number]- When:Within 3 Month(s) [facility] 10-08-2024 NotePatient Education Pulmonary [...] Follow these instructions at home: ? Take xuih-cnu-jbogtmw and prescription medicines only as told by [...] and water are not available, use hand block sorter. ? Avoid contact with people who have [...] is easier to cough up. ? Take tknf-avb-wswwhcu and (more content not included)...[facility]10-05-2024 Hospital Discharge instructions Follow Up Care 02/02/2024 11:19:56 With:Anni Bernstein MD, [facility], MED Address: [address] [place] [phone] When: only if needed [facility] 09-09-2024 Miscellaneous Notes* Telephone [...] results. Thank you documented in this encounterThe Christ Hospital09-09-2024 Telephone encounter Note * Telephone Encounter - Valeri Yeung RN - 01/07/2024 8:29 AM EDT No need for IV iron per CC'd chart from Dr. Calix. Attempt to call pt to notify. Left detailed message on, along with call back number on voicemail. Valeri Yeung RN [facility]09-04-2024 Telephone encounter Note* Telephone Encounter - Marleen Mcdonald - 01/02/2024 2:[address] Luna is requesting Triage to call Sanna with her FE results. Thank you [facility]09-04-2024 Instructions* Patient Instructions* Nathaly Florence - 01/02/2024 2:08 PM EDT Triage to call iron results Continue Lovenox - patient prefers 40 mg (rather than rec 80mg) Encouraged her to reconsider Take B12 supplement in the form of a sublingual tablet RTC in 3 months Labs same day Vitamin D, TSH, Calcium with CMP documented in this encounterThe Christ Hospital09-04-2024 Nurse Note* Serina Horton MA - [...] but was negative. Serina Dawson MA [facility]09-04-2024 Nurse Note* Serina Dawson MA - [...] Serina Dawson MA documented in this encounterThe Christ Hospital09-04-2024 History of Present illness Narrative* Kristofer Calix MD - 01/02/2024 1:45 PM EDT Images from the original note were not included. NAME: Sanna Rendon CLINIC NO.: [id number] DATE OF SERVICE: January 02, 2024 (Levon) [...] later in 2018. These were found in [place], [place]. I don't have access to these [...] rash shortly before presenting to [facility] in 2016 with headaches and was [...] Monge soon. When she hada stroke in [place], she had symptoms up to a month before: uncontrollable headache, BP was elevated, knee stiffness, and blurry vision. Right facial drooping and difficulty [facility] She continues to [facility]. Updated Visit, [...] and stayed on Lovenox Hgb 13.1 @ [facility] Recommended ER if [...] and at age 69. Both lived in [facility] but she was adopted. She was not able to see ID in October and will be seeing Dr. Baugh next week. Also will have her see Dr. Hamlin for her clotting disorder and make any other recommendations to optimize her treatment. Updated Visit, October 08, 2020: Telephone only Received call from pt stating she was seen in [facility] ER for numbness in her chest, throat, and extremities, and sob which has been worsening over the last week. We arranged a telephone visit for her toreview questions with me. Sanna Rendon is a 34 year old female seen for Hypercoagulable state and recent concerns and symptoms that required her to be seen at [facility] ER. She went to the ER with Gradual worsening of breathing after progressive tingling of fingers and legs. She currently remains very fatigued even though she is sleeping well. Now recalls that before her stroke she remembers having a bull's eye rash and was seen with severe headaches in [facility] was found to have a stroke [...] a root canal and was sent to [facility] for MRI which [...] history goes back to January 2016 in [facility] where she had persisting headaches and slurred speech followed by lower extremity weakness. This took a few months to resolve and she is back to her normal state of being but some point in time during her her next she was seen by Dr. Humera Hyde in [place] as well and was found to have [...] which included preparing to see the patient, mgzz-qj-bvhq patient care, completing clinical documentation, performing a medically appropriate examination, counseling and educating the patient/family/caregiver, ordering medications, tests, or p rocedures, independently interpreting results (not separately reported), communicating results to the patient/family/caregiver, and care coordination (not separately reported). Kristofer Calix MD, CPE Hematology [facility] Oncology Services Provided at: [place], [place] Scribe Attestation: This note was scribed [...] under my direction. CC: MD Wilton Day, [address] [place] [address] Humaira Gaviria MD [address] [place] [id number] MD Cosmo Kingston MD Michael Blank, MD documented in this encounterThe Christ Hospital08-19-2024 Telephone encounter Note * Telephone Encounter - Rachael Johnson RN - 12/17/2023 12:57 PM EDT Pt updated and will follow up with PCP. Denies further questions, needs or concerns at this time for our provider. Rachael Johnson RN [facility]08-19-2024 Miscellaneous Notes* Telephone Encounter - Rachael [...] IV Iron 11/29/23? documented in this encounterThe Christ Hospital08-19-2024 Telephone encounter Note * Telephone Encounter - Kristofer Calix MD - 12/17/2023 12:52 PM EDT No - sounds like she has some infectious process going on - would rec PCP. [facility]08-19-2024 Telephone encounter Note* Telephone Encounter - [...] delayed reaction to IV Iron 11/29/23? [facility]08-01-2024 History of Present illness Narrative* Becki Gutierrez RN - 11/29/2023 2:01 PM EDT Y Y documented in this encounterThe Christ Hospital08-01-2024 Telephone encounter Note * Telephone Encounter - Rachael Johnson RN - 11/29/2023 12:45 PM EDT MARSHA Connell, treatment aware of changes. [facility]08-01-2024 Miscellaneous Notes* Telephone Encounter - Rachael [...] review. Please adjust dose if necessary. Thanks, Riassa Aly RPh * Telephone Encounter - Raissa [...] different iron formulation. documented in this encounterThe [facility] Hospital08-01-2024 Telephone encounter Note * Telephone Encounter - Rachael Johnson RN - 11/29/2023 12:41 PM EDT Spoke with pt. She will obtain Pepcid OTC from our retail pharmacy on arrival to take (1) 20 mg tablet. She is aware and agreeable to IV steroid for infusion as well. Rachael Johnson RN [facility]08-01-2024 Telephone encounter Note* Telephone Encounter - Raissa Aly RPh - 11/29/2023 12:40 PM EDT A one time dose of dexamethasone is safe when . I added 8mg to the plan for your review. Please adjust dose if necessary. Thanks, Raissa Aly RPh [facility] Work Phone: [phone] Telephone encounter Note* Telephone Encounter - Raissa Aly RPh - 11/29/2023 12:34 PM EDT Famotidine is safe when . Do we want to administer the venofer slower? What rate? Thanks, Raissa Aly [facility]08-01-2024 Telephone encounter Note* Telephone Encounter - Rachael Johnson RN - 11/29/2023 11:56 AM EDT Called and discussed with pt. She is and cannot take Benadryl. She is reluctant to take Pepcid. Attempted to call retail, infusion pharmacy and [facility], no answer, to ask safety of pepcid in . Pharm/Fely: please advise Rachael Johnson RN [facility]08-01-2024 Telephone encounter Note* Telephone Encounter - [...] to choose a different iron formulation. [facility]07-18-2024 History of Present illness Narrative* Alison Linares RN - 11/15/2023 1:42 PM EDT Pt reports having nausea and lightheadedness this morning. She has seen her pcp regarding these symptoms and is being worked up to figure out the cause. documented in this encounterThe [facility] Hospital07-18-2024 Telephone encounter Note * Telephone Encounter - Evelyn Sanabria - 11/15/2023 9:19 AM EDT 1st report of treatment-Non oncology regimen (Venofer) Patient holds Medicaid coverage and there isno available FA at this time. [facility]07-18-2024 Miscellaneous Notes* Telephone Encounter - Domo Cat Evelyn Radha - 11/15/2023 9:19 AM EDT 1st report of treatment-Non oncology regimen (Venofer) Patient holds Medicaid coverage and there isno available FA at this time. documented in this encounterThe [facility] Hospital07-12-2024 Hospital Discharge instructions Patient Education 11/09/2023 [...] your hypoglycemia. Where to find more information [place] Diabetes Association: www.diabetes.org National [place] of Diabetes and Digestive and Kidney Diseases: [...] provider. Document Revised: 03/17/2021 Document Reviewed: 03/17/2021 [employer] Patient Education 2022 [employer]. 11/09/2023 15:56:06 Prediabetes Prediabetes Prediabetes is when [...] hard liquor (44 mL). General instructions Take wloj-pat-tokwgcb and prescription medicines only as told by [...] is important. Where to find more information [place] Diabetes Association: www.diabetes.org Academy of Nutrition and Dietetics: www.eatright.org [place] Heart Association: www.heart.org Contact a health care [...] provider. Document Revised: 07/15/2020 Document Reviewed: 07/15/2020 [employer] Patient Education 2022 [employer]. 11/09/2023 15:56:02 Palpitations Palpitations Palpitations are feelings [...] ask your health careprovider. General instructions Take oplw-gch-wdqjsxl and prescription medicines only as told by [...] provider. Document Revised: 09/07/2021 Document Reviewed: 09/07/2021 [employer] Patient Education 2022 [employer]. 11/09/2023 15:55:58 Fatigue Fatigue If you have [...] Follow these instructions at home: Medicines Take zsrl-qxy-fzyqgjp and prescription medicines only as told by [...] the National Suicide Prevention Lifeline at or 604. This is open 24 hours a day. Text the Crisis Text Line at 851943. Summary If you have fatigue, you feel [...] Document Reviewed: 02/06/2022 Elsevier Patient Education 2022 [employer] Follow Up Care 11/08/2023 11:31:43 With:PRAVEEN RESENDEZ FAAFP, Penelope Tony, CHRIS, PED Address: [place], [facility] [place] [address]- When: Unknown [facility] 07-12-2024 NotePatient Education Emergency [...] health care provider. General instructions ? Take cxmv-kxg-prsvadb and prescription medicines only as told by [...] provider. Document Revised: 09/07/2021 Document Reviewed: 09/07/2021 [employer] Patient Education ? 2022 You[employer]. Endocrinology Preventing Hypoglycemia Hypoglycemia occurs when the [...] Mild hypoglycemia may not (more content not included)...[facility]07-12-2024 History of Present illness Narrative* Tamiko Krueger LSW - 11/09/2023 9:27 AM EDT Patient appears on the [facility] First Time Treatment List for a non-oncology treatment. No psychosocial assessment is indicated. TIM Huerta-Jaylan documented in this encounterThe [facility] Hospital07-09-2024 Telephone encounter Note * Telephone Encounter [...] etc. Appointments verified. Rachael Johnson RN [facility]07-09-2024 Miscellaneous Notes* Telephone Encounter - Rachael [...] MD Sent: 11/05/2023 11:33 AM EDT To: [facility] Triage Pool; [facility] Clerical Pool Perry Isidro - looks like you need Iron again. Dr. Middleton Cancel her virtual set for 11/05 and 11/19 - infuse 3 doses weekly iron and then see her in 8 weeks inperson - labs same day. Thanks! documented in this encounterThe Christ Hospital07-08-2024 Telephone encounter Note * Telephone Encounter [...] you feeling better. Best, Dr. Middleton [facility]07-08-2024 Telephone encounter Note* Telephone Encounter - [...] on a blood thinner. Roberta Haskins [facility]07-08-2024 Telephone encounter Note* Telephone Encounter - Roberta Haskins - 11/05/2023 12:47 PM EDT Appointment tomorrow cancelled. Andres tried calling her this morning and was unable to get a hold ofher. Will keep trying patient to schedule for Iron. Roberta Haskins [facility]07-08-2024 Telephone encounter Note* Telephone Encounter - Roberta Haskins - 11/05/2023 12:47 PM EDT ----- Message from Rachael Johnson RN sent at 11/05/2023 11:53 AM EDT ----- ----- Message ----- From: Kristofer Calix MD Sent: 11/05/2023 11:33 AM EDT To: [facility] Triage Pool; [facility] Clerical Pool Perry Isidro - looks like you need Iron again. Dr. Middleton Cancel her virtual set for 11/05 and 11/19 - infuse 3 doses weekly iron and then see her in 8 weeks inperson - labs same day. Thanks! [facility]06-25-[facility]24 Hospital Discharge instructions Patient Education 10/23/2023 [...] specializes in ear, nose, and throat disorders (tenon machine operator, or ENT) for more tests and treatment. [...] (rhinoplasty). Follow these instructions at home: Take azcv-ehe-hftyqnz and prescription medicines only as told by [...] specializes in ear, nose, and throat disorders (tenon machine operator, or ENT) for more tests and treatment. This information is not intended to replace advice given to you by your health care provider. Make sure you discuss any questions you have with your health care provider. Document Revised: 12/12/2021 Document Reviewed: 12/12/2021 [employer] Patient Education 2022 You[employer]. 10/23/2023 17:12:52 Nasal Polyps Nasal Polyps Nasal [...] instructions at home: Medicines Take or use odmr-vrs-cdhwqwc and prescription medicines only as told by [...] provider. Document Revised: 04/05/2022 Document Reviewed: 04/05/2022 [employer] Patient Education 2022 You[employer]. 10/23/2023 17:12:52 Nasal Polypectomy Nasal Polypectomy Nasal [...] including vitamins, herbs, eye drops, creams, and avym-sod-hhggtnl medicines. Any problems you or family members [...] provider tells you to take them. Taking mrfa-ylb-rmhoshx medicines, vitamins, herbs, and supplements. General instructions [...] provider. Document Revised: 04/05/2022 Document Reviewed: 04/05/2022 [employer] Patient Education 2022 You[employer]. 10/23/2023 17:12:46 BMI for Adults BMI for [...] numbers. This can be done either in [place] or metric measurements. Note that charts and online BMI calculators are available to help you find your BMI quickly and easily without having to do these calculations yourself. To calculate your BMI in [place] ([place] measurements: 1.Measure your weight in pounds [...] Centers for Disease Control and Prevention: www.cdc.gov [place] Heart Association: www.heart.org National Heart, Lung, and Blood [place]: www.nhlbi.nih.gov Summary Body mass index (BMI) is a number that is calculated from a person's weight and height. BMI may help estimate how much of a person's weight is composed of fat. BMI can help identify thosewho may be at higher risk for certain medical problems. BMI can be measured using [place] measurements or metric measurements. BMI charts are used to identify whether you are underweight, normal weight, overweight, or obese. This information is not intended to replace advice given to you by your health care provider. Make sure you discuss any questions you have with your health care provider. Document Revised: 01/07/2020 Document Reviewed: 11/14/2019 [employer] Patient Education 2022 You[employer]. Follow Up Care 10/23/2023 08:49:41 With:Lourdes Urrutia Address: [address] [place] [address], [facility] [place] [address]- When: only if needed [facility] 05-31-2024 Hospital Discharge instructions [...] Follow these instructions at home: Medicines Take nkez-ntx-dqspyae and prescription medicines only as told by [...] Watch your condition for any changes. Take okxc-gxe-wovsban and prescription medicines only as told by [...] provider. Document Revised: 06/04/2020 Document Reviewed: 08/25/2019 ElseCuriously Patient Education 2022 YouScan. Follow Up Care 09/28/2023 18:22:59 With:Penelope CASAS Address: [address], [place] [address]- Business (1) When:Within 3 Day(s) [facility]05-31-2024 Hospital Discharge instructions Patient Education [...] numbers. This can be done either in [place] ([place] or metric measurements. Note that charts and online BMI calculators are available to help you find your BMI quickly and easily without having to do these calculations yourself. To calculate your BMI in [place] ([place] measurements: 1.Measure your weight in pounds [...] Centers for Disease Control and Prevention: www.cdc.gov [place] Heart Association: www.heart.org National Heart, Lung, and Blood [place]: www.nhlbi.nih.gov Summary Body mass index (BMI) is a number that is calculated from a person's weight and height. BMI may help estimate how much of a person's weight is composed of fat. BMI can help identify thosewho may be at higher risk for certain medical problems. BMI can be measured using [place] measurements or metric measurements. BMI charts are used to identify whether you are underweight, normal weight, overweight, or obese. This information is not intended to replace advice given to you by your health care provider. Make sure you discuss any questions you have with your health care provider. Document Revised: 01/07/2020 Document Reviewed: 11/14/2019 [employer] Patient Education 2022 YouScan. 09/28/2023 18:24:42 Hypertension, Adult, Nqle-bl-Yvoj Hypertension, Adult Hypertension is another name for [...] doctor. Keep all follow-up visits. Medicines Take gnxo-dbt-aahznuy and prescription medicines only as told by [...] provider. Document Revised: 02/02/2022 Document Reviewed: 02/02/2022 [employer] Patient Education 2022 You[employer]. 09/28/2023 18:24:32 Abdominal Pain, Adult, Ajyn-sj-Jqsq Abdominal Pain, Adult Many things can cause belly (abdominal) pain. Most times, belly pain is not dangerous. Many cases of belly pain can be watched and treated at home. Sometimes, though, belly pain is serious. Your doctor will try to find the cause of your belly pain. Follow these instructions at home: Medicines Take cytg-yvj-vnpfmdr and prescription medicines only as told by [...] your belly pain for any changes. Take wbqb-rlr-sgqiptz and prescription medicines only as told by [...] provider. Document Revised: 08/25/2019 Document Reviewed: 08/25/2019 [employer] Patient Education 2022 You[employer]. Follow Up Care 09/28/2023 16:11:11 With:Emergency room Address: When: only if needed Comments:Patient was instructed to contact emergency room for any worsening abdominal pain, concerns, or complications. [facility] 05-31-2024 Evaluation + Plan [...] Open Future Scheduled Tests Laboratory* HgbA1c 08/03/23 [facility]05-30-2024 Telephone encounter Note* Telephone Encounter - Divine Roberta - 09/27/2023 4:38 PM EDT Attempt has been made x2 to reschedule patient. She did not have labs drawn. Roberta Haskins [facility]05-30-2024 Miscellaneous Notes* Telephone Encounter - JocelynelesterRoberta - 09/27/2023 4:38 PM EDT Attempt has been made x2 to reschedule patient. She did not have labs drawn. Roberta Haskins documented in this encounterThe [facility]05-29-[facility] History of Present illness Narrative* Kristofer Calix MD - 09/26/2023 9:11 AM EDT Did not have labs done to prep for this visit - reschedule. Kristofer Calix MD documented in [facility]The [facility] Hospital Discharge instructions Patient Education 08/03/2023 [...] your health care provider or diet and livestock nutrition territory manager (dietitian). This may include: ?Eating fewer [...] provider. Document Revised: 06/12/2021 Document Reviewed: 06/12/2021 Tamoco Patient Education 2022 YouScan. Follow Up Care 02/15/2023 10:07:52 With:PRAVEEN RESENDEZ FAAFP, Penelope Tony, CHRIS, PED Address: [address], [place] [address]- When:Within 4 Month(s) [facility] 04-05-2024 Evaluation + Plan note Future Scheduled Tests Laboratory* HgbA1c 08/03/23 Radiology* CT Soft Tissue Neck w/ Contrast 11/12/[address] [facility] 02-22-2024 Hospital Discharge instructions [...] or if there is an kennedy for My[employer]. Most glucose meters store a record of [...] mayhave. Where to find more information The [place] Diabetes Association: www.diabetes.org The Association of Diabetes [...] provider. Document Revised: 01/12/2021 Document Reviewed: 01/12/2021 Tamoco Patient Education 2022 YouScan. 06/21/2023 06:07:34 Preventing Iron Deficiency Anemia, Adult [...] iron. Foods high in vitamin C include: ?Lee fruits, such as tai, oranges, and grapefruits. [...] iron supplement is right for you. Take ziak-ydn-gaztlxv and prescription medicines only as told by your health care provider. Keep all follow-up visits. Where to find more information Learn more about preventing iron deficiency from: National Heart, Lung, and Blood [place]: www.nhlbi.nih.gov [place] Society of Hematology: www.hematology.org Contact a health [...] provider. Document Revised: 05/24/2022 Document Reviewed: 05/24/2022 Tamoco Patient Education 2022 YouScan. 06/21/2023 06:07:28 BMI for Adults BMI for [...] numbers. This can be done either in [place] (U.S[place] or metric measurements. Note that charts and online BMI calculators are available to help you find your BMI quickly and easily without having to do these calculations yourself. To calculate your BMI in [place]ran ([place].S[place] measurements: 1.Measure your weight in pounds [...] Centers for Disease Control and Prevention: www.cdc.gov [place] Heart Association: www.heart.org National Heart, Lung, and Blood [place]: www.nhlbi.nih.gov Summary Body mass index (BMI) is a number that is calculated from a person's weight and height. BMI may help estimate how much of a person's weight is composed of fat. BMI can help identify thosewho may be at higher risk for certain medical problems. BMI can be measured using Andorran measurements or metric measurements. BMI charts are used to identify whether you are underweight, normal weight, overweight, or obese. This information is not intended to replace advice given to you by your health care provider. Make sure you discuss any questions you have with your health care provider. Document Revised: 01/07/2020 Document Reviewed: 11/14/2019 Tamoco Patient Education 2022 YouScan. Follow Up Care 06/19/2023 13:39:56 With:PRAVEEN RESENDEZ FAAFP, Penelope Tony, CHRIS, PED Address: [address] [place] [id number]- When: Unknown [facility] 02-20-2024 Miscellaneous Notes* Telephone Encounter - Rachael Johnson RN - 06/19/2023 1:05 PM EST Pt called back and aware of Fely's message. She is agreeable to POC and denies further needs at thistime. She will call PCP to follow up on TSH Rachael Johnson RN * Telephone Encounter - Rachael Johnson RN - 06/19/2023 12:26 PM EST [employer] message sent Rachael Johnson RN * Telephone [...] results Roberta Haskins documented in this encounterThe [facility] Hospital02-16-[facility]24 Instructions* Patient Instructions* Nathaly Carney - [...] Calcium with CMP documented in this encounterThe [facility]02-16-[facility]24 Nurse Note* Serina Horton MA - [...] Serina Dawson MA documented in this encounterThe [facility]02-16-[facility]24 History of Present illness Narrative* Kristofer Calix MD - 06/15/2023 2:00 PM EST Images from the original note were not included. NAME: Sanna Rendon CLINIC NO.: [id number] DATE OF SERVICE: June 15, 2023 (Levon) [...] later in 2018. These were found in [place], [place]. I don't have access to these [...] rash shortly before presenting to [facility] in 2016 with headaches and was [...] Monge soon. When she hada stoke in [place], she had symptoms up to a month [...] and stayed on Lovenox Hgb 13.1 @ [facility] Recommended ER if [...] and at age 69. Both lived in [facility] but she was adopted. She was not able to see ID in October and will be seeing Dr. Baugh next week. Also will have her see Dr. Hamlin for her clotting disorder and make any other recommendations to optimize her treatment. Updated Visit, October 08, 2020: Telephone only Received call from pt stating she was seen in [facility] ER for numbness in her chest, throat, and extremities, and sob which has been worsening over the last week. We arranged a telephone visit for her franci questions with me. Sanna Rendon is a 34 year old female seen for Hypercoagulable state and recent concerns and symptoms that required her to be seen at [facility] ER. She went to the ER with Gradual worsening of breathing after progressive tingling of fingers and legs. She currently remains very fatigued even though she is sleeping well. Now recalls that before her stroke she remembers having a bull's eye rash and was seen with severe headaches in [facility] was found to have a stroke [...] a root canal and was sent to [facility] for MRI which [...] history goes back to January 2016 in [facility] where she had persisting headaches and slurred speech followed by lower extremity weakness. This took a few months to resolve and she is back to her normal state of being but some point in time during her her next she was seen by Dr. Humera Hyde in [place] as well and was found to have [...] which included preparing to see the patient, kwud-cq-yvkm patient care, completing clinical documentation, performing a medically appropriate examination, counseling and educating the patient/family/caregiver, ordering medications, tests, or p rocedures, independently interpreting results (not separately reported), communicating results to the patient/family/caregiver, and care coordination (not separately reported). Kristofer Calix MD, CPE Hematology and Oncology Services Provided at: [place], [place] Scribe Attestation: This note was scribed [...] under my direction. CC: MD Wilton Day, [address] [place] [address] Humaira Gaviria MD [address] [place] [id number] MD Cosmo Kingston MD Michael Blank, MD documented in this encounterThe [facility] Hospital02-12-2024 Miscellaneous Notes* Telephone Encounter - Ebony Redding Ma - 06/11/2023 10:43 AM EST Labs for appointment on 06/15. Ebony Redding Ma documented in this encounterThe [facility] Hospital02-12-2024 Miscellaneous Notes* Telephone Encounter - Nicol [...] Nicol Salgado * [facility]06/2023 8:37 AM EST Records [...] she was last seen by him. [facility] Neurology [address] [facility], [place], Please fax records Andres, Please follow up on this appt. Thank you documented in this encounterThe [facility] Hospital02-01-2024 History of Present illness Narrative* Kristofer Calix MD - 05/31/2023 4:30 PM EST Images from the original note were not included. NAME: Sanna Rendon CLINIC NO.: [id number] DATE OF SERVICE: May 31, 2023 (Levon) Some elements in this clinic note that are critical to medical decision making have been carefully reviewed and included from a prior clinic note dated: March 19, 2023 (Levon) Additional Clinicians involved in Sanna Rendon's care: Drs. Herrmann, Jorge Monge, Humaira Gaviria, VIRTUAL VISIT PROGRESS NOTE This is a virtual visit using [employer] Zoom Video Visit. It required patient- provider interaction for the medical decision making as documented below. I have communicated my name and active licensure. The patient's identity and physical location wereverified at the time of this visit. Either the patient or their legal sales donor recruitment representative has been informed of the risks and benefits of -- and alternatives to -- treatment through a remote evaluation andconsents to proceed with the evaluation remotely. CC: hypercoag state. ASSESSMENT: 37 year old woman 25 weeks presents with a prior history of CVA in 2016 and anantiphospholipid antibody that was identified much later in 2018. These were found in [place], [place]. I don't have access to these [...] rash shortly before presenting to [facility] in 2016 with headaches and was [...] and stayed on Lovenox Hgb 13.1 @ [facility] Recommended ER if [...] and at age 69. Both lived in [facility] but she was adopted. She was not able to see ID in October and will be seeing Dr. Baugh next week. Also will have her see Dr. Hamlin for her clotting disorder and make any other recommendations to optimize her treatment. Updated Visit, October 08, 2020: Telephone only Received call from pt stating she was seen in [facility] ER for numbness in her chest, throat, and extremities, and sob which has been worsening over the last week. We arranged a telephone visit for her franci questions with me. Sanna Rendon is a 34 year old female seen for Hypercoagulable state and recent concerns and symptoms that required her to be seen at [facility] ER. She went to the ER with Gradual worsening of breathing after progressive tingling of fingers and legs. She currently remains very fatigued even though she is sleeping well. Now recalls that before her stroke she remembers having a bull's eye rash and was seen with severe headaches in [facility] was found to have a stroke [...] a root canal and was sent to [facility] for MRI which [...] history goes back to January 2016 in [facility] where she had persisting headaches and slurred speech followed by lower extremity weakness. This took a few months to resolve and she is back to her normal state of being but some point in time during her her next she was seen by Dr. Humera Hyde in [place] as well and was found to have [...] CPE Hematology and Oncology Services Provided at: [place], [place] CC: MD Wilton Day, [address] [place] [address] Humaira Gaviria MD [address] [place] [id number] MD Cosmo Kingston MD Michael Blank, MD documented in this encounterThe [facility] Hospital02-01-2024 Instructions* Patient Instructions* Kristofer Calix MD [...] Calcium with CMP documented in this encounterThe [facility] Hospital01-26-[facility]24 Hospital Discharge instructions Patient Education 05/25/2023 [...] your ears completely after. General instructions Take oqfy-cvv-gybwxle and prescription medicines only as told by [...] provider. Document Revised: 06/27/2021 Document Reviewed: 06/27/2021 Tamoco Patient Education 2022 YouScan. 05/25/2023 12:02:06 Dyshidrotic Eczema Dyshidrotic Eczema Dyshidrotic [...] care provider who specializes in skin conditions (receiving inspector) tohelp diagnose and treat this condition. [...] locks in moisture. Medicines Take and apply imxb-bkg-fvuyznr and prescription medicines only as told by [...] provider. Document Revised: 01/24/2021 Document Reviewed: 01/24/2021 Tamoco Patient Education 2022 YouScan. 05/25/2023 12:02:02 Allergies, Adult, Tduz-is-Cgtm Allergies, Adult An allergy means that your [...] instructions at home: Medicines Take or apply akyd-jtp-obuqsrq and prescription medicines only as told by [...] to the hospital. Summary Take or apply dsuf-crx-iniycmm and prescription medicines only as told by [...] provider. Document Revised: 02/25/2020 Document Reviewed: 02/25/2020 Tamoco Patient Education 2022 YouScan. Follow Up Care 05/21/2023 12:21:27 With:PRAVEEN RESENDEZ FAAFP, Penelope Tony, CHRIS, PED Address: [facility] [address], [place] [address]- When:Within 2 Month(s) [facility] 11-20-2023 History of Present illness Narrative* Kristofer Calix MD - 03/19/2023 4:45 PM EST Images from the original note were not included. NAME: Sanna Rendon CLINIC NO.: [id number] DATE OF SERVICE: March 19, 2023 (Levon) [...] visit. Either the patient or their legal sales donor recruitment representative has been informed of the risks and benefits of -- and alternatives to -- treatment through a remote evaluation andconsents to proceed with the evaluation remotely. CC: hypercoag state. ASSESSMENT: 37 year old woman 25 weeks presents with a prior history of CVA in 2016 and anantiphospholipid antibody that was identified much later in 2018. These were found in [place], [place]. I don't have access to these [...] rash shortly before presenting to [facility] in 2016 with headaches and was [...] and stayed on Lovenox Hgb 13.1 @ [facility] Recommended ER if [...] 39 weeks Updated Visit, January 30, 2022: Sanan returns at 25 weeks of her current [...] and at age 69. Both lived in [facility] but she was adopted. She was not able to see ID in October and will be seeing Dr. Baugh next week. Also will have her see Dr. Hamlin for her clotting disorder and make any other recommendations to optimize her treatment. Updated Visit, October 08, 2020: Telephone only Received call from pt stating she was seen in [facility] ER for numbness in her chest, throat, and extremities, and sob which has been worsening over the last week. We arranged a telephone visit for her chanw questions with me. Sanna Rendon is a 34 year old female seen for Hypercoagulable state and recent concerns and symptoms that required her to be seen at [facility] ER. She went to the ER with Gradual worsening of breathing after progressive tingling of fingers and legs. She currently remains very fatigued even though she is sleeping well. Now recalls that before her stroke she remembers having a bull's eye rash and was seen with severe headaches in [facility] was found to have a stroke [...] a root canal and was sent to [facility] for MRI which [...] history goes back to January 2016 in [facility] where she had persisting headaches and slurred speech followed by lower extremity weakness. This took a few months to resolve and she is back to her normal state of being but some point in time during her her next she was seen by Dr. Humera Hyde in [place] as well and was found to have [...] CPE Hematology and Oncology Services Provided at: [place], [place] CC: MD Wilton Day, [address] [place] [address] Humaira Gaviria MD [address] [place] [id number] MD Cosmo Kingston MD Michael Blank, MD documented in this encounterThe [facility] Hospital11-20-2023 Instructions* Patient Instructions* Kristofer Calix MD - 03/19/2023 4:44 PM EST Continue Lovenox - patient prefers 40 mg (rather than rec 80mg) Take B12 supplement in the form of a sublingual tablet. Take Vitamin D3 5000 international unit(s) daily Check labs in 8 weeks Phone / Virtual call after documented in this encounterThe [facility] Hospital10-19-2023 Hospital Discharge instructions Patient Education 02/15/2023 10:13:08 Ear Drops, Adult, Gyos-qd-Xpkh Ear Drops, Adult Your doctor has found [...] cannot use soap and water, use hand block sorter. 2.Make sure your ears are clean and [...] you cannot use soapand water, use hand block sorter. Follow these instructions at home: Use the [...] provider. Document Revised: 02/11/2020 Document Reviewed: 02/11/2020 Tamoco Patient Education 2022 Tamoco Inc. 02/15/2023 10:13:05 Otitis Externa, Euqd-kk-Sgpb Otitis Externa Otitis externa is an infection [...] if you start to feel better. Take hfpe-cxv-xzjfqyx and prescription medicines only as told by [...] provider. Document Revised: 06/29/2021 Document Reviewed: 06/29/2021 ElseCuriously Patient Education 2022 YouScan. Follow Up Care 02/14/2023 12:28:12 With:PRAVEEN RESENDEZ FAAFP, Penelope Tony, CHRIS, PED [facility] [address] [facility] [place] [address]- When:Within 2 Month(s) [facility] 08-25-2023 Hospital Discharge instructions [...] including vitamins, herbs, eye drops, creams, and nhhc-wwk-ushsdfn medicines. ?Whether you are or may be [...] provider. Document Revised: 12/28/2021 Document Reviewed: 11/19/2020 Tamoco Patient Education 2022 YouScan. 12/22/2022 15:19:23 Fatigue Fatigue If you have [...] Follow these instructions at home: Medicines Take drsd-rll-fgjcmst and prescription medicines only as told by [...] day. Text the Crisis Text Line at 497246. Summary If you have fatigue, you feel [...] provider. Document Revised: 02/06/2022 Document Reviewed: 02/06/2022 Tamoco Patient Education 2022 YouScan. Follow Up Care 12/22/2022 10:22:02 With:Lourdes Urrutia Address: [facility] [place], [facility] [place] [address]- When: only if needed [facility] 08-25-2023 Instructions* Patient Instructions* Kristofer Calix MD - 12/22/2022 10:13 AM EDT Continue Lovenox - patient prefers 40 mg (rather than rec 80mg) Take B12 supplement in the form of a sublingual tablet. Take Vitamin D3 5000 international unit(s) daily Check labs in 8 weeks Phone / Virtual call after documented in this encounterThe [facility] Hospital08-25-2023 History of Present illness Narrative* Kristofer Calix MD - 12/22/2022 9:55 AM EDT Images from the original note were not included. Kristofer Calix MD NAME: Sanna Rendon CLINIC NO.: [id number] DATE OF SERVICE: December 22, 2022 (Levon) Some elements in this clinic note that are critical to medical decision making have been carefully reviewed and included from a prior clinic note dated: September 28, 2022 (Levno) Additional Clinicians involved in Sanna Rendon's care: [...] visit. Either the patient or their legal sales donor recruitment representative has been informed of the risks and benefits of -- and alternatives to -- treatment through a remote evaluation andconsents to proceed with the evaluation remotely. CC: hypercoag state. ASSESSMENT: 37 year old woman with a prior history of CVA in 2016 and an antiphospholipid antibody that was identified much later in 2018. These were found in [place], [place]. I don't have access to these [...] rash shortly before presenting to [facility] in 2016 with headaches and was [...] and stayed on Lovenox Hgb 13.1 @ [facility] Recommended ER if [...] and at age 69. Both lived in [facility] but she was adopted. She was not able to see ID in October and will be seeing Dr. Baugh next week. Also will have her see Dr. Hamlin for her clotting disorder and make any other recommendations to optimize her treatment. Updated Visit, October 08, 2020: Telephone only Received call from pt stating she was seen in [facility] ER for numbness in her chest, throat, and extremities, and sob which has been worsening over the last week. We arranged a telephone visit for her franci questions with me. Sanna Rendon is a 34 year old female seen for Hypercoagulable state and recent concerns and symptoms that required her to be seen at [facility] ER. She went to the ER with Gradual worsening of breathing after progressive tingling of fingers and legs. She currently remains very fatigued even though she is sleeping well. Now recalls that before her stroke she remembers having a bull's eye rash and was seen with severe headaches in [place], [place] - was found to have a [...] a root canal and was sent to [facility] for MRI which [...] history goes back to January 2016 in [facility] where she had persisting headaches and slurred speech followed by lower extremity weakness. This took a few months to resolve and she is back to her normal state of being but some point in time during her her next she was seen by Dr. Humera Hyde in [place] as well and was found to have [...] CPE Hematology and Oncology Services Provided at: [place], [place] CC: MD Wilton Day, [address] [place] [address] Humaira Gaviria MD [address] [facility] [address] MD Cosmo Kingston MD Michael Blank, MD documented in this encounterThe [facility] Hospital08-16-2023 Miscellaneous Notes* Telephone Encounter - Roberta [...] time. Roberta Haskins documented in this encounterThe [facility] Hospital06-23-2023 Hospital Discharge instructions Patient Education 10/20/2022 [...] your health care provider or diet and livestock nutrition territory manager (dietitian). This may include: ?Eating fewer [...] provider. Document Revised: 06/12/2021 Document Reviewed: 06/12/2021 Tamoco Patient Education 2022 YouScan. 10/20/2022 10:37:18 Preventing Type 2 Diabetes Mellitus [...] with a registered dietitian. This diet and livestock nutrition territory manager can help you make a healthy eating plan and help you understand portion sizes and food labels. Where to find support Ask your health care provider to recommend a registered dietitian, a certified diabetes care and educational assistant teacher, or a weight loss program. Look for local or online weight loss groups. Join a gym, fitness club, or outdoor activity group, such as a walking club. Where to find more information For help and guidance and to learn more about diabetes and diabetes prevention, visit: [place] Diabetes Association (ADA): www.diabetes.org National [place] of Diabetes and Digestive and Kidney Diseases: [...] provider. Document Revised: 07/11/2021 Document Reviewed: 07/11/2021 Tamoco Patient Education 2022 YouScan. 10/20/2022 10:37:17 Preventing Hypoglycemia Preventing Hypoglycemia Hypoglycemia [...] your hypoglycemia. Where to find more information [place] Diabetes Association: www.diabetes.org National [place] of Diabetes and Digestive and Kidney Diseases: [...] provider. Document Revised: 03/17/2021 Document Reviewed: 03/17/2021 Tamoco Patient Education 2022 YouScan. 10/20/2022 10:37:16 Gestational Diabetes Mellitus, Diagnosis, Avej-xj-Rutw Gestational Diabetes Mellitus, Diagnosis Gestational diabetes mellitus [...] follow-up visits. Where to find more information [place] Diabetes Association (ADA): diabetes.org Association of Diabetes Care & Education Specialists (ADCES): diabeteseducator.org Centers for Disease Control and Prevention (CDC): cdc.gov [place] Association: americanpregnancy.org U.S. Department of Agriculture MyPlate: [...] provider. Document Revised: 09/20/2020 Document Reviewed: 09/20/2020 Tamoco Patient Education 2022 YouScan. Follow Up Care 09/19/2022 14:47:09 With:PRAVEEN RESENDEZ FAAFP, CHRIS Perez, PED Address: [place] [address]- When:Within 3 Month(s) [facility] 06-01-2023 History of Present illness Narrative* Kristofer Calix MD - 09/28/2022 5:00 PM EDT Images from the original note were not included. Kristofer Calix MD NAME: Sanna Rendon CLINIC NO.: [id number] DATE OF SERVICE: September 28, 2022 (Levon) [...] visit. Either the patient or their legal sales donor recruitment representative has been informed of the risks and benefits of -- and alternatives to -- treatment through a remote evaluation andconsents to proceed with the evaluation remotely. CC: hypercoag state. ASSESSMENT: 36 year old woman 25 weeks presents with a prior history of CVA in 2016 and anantiphospholipid antibody that was identified much later in 2018. These were found in [place], [place]. I don't have access to these [...] rash shortly before presenting to [facility] in 2016 with headaches and was [...] and stayed on Lovenox Hgb 13.1 @ [facility] Recommended ER if [...] and at age 69. Both lived in [facility] but she was adopted. She was not able to see ID in October and will be seeing Dr. Baugh next week. Also will have her see Dr. Hamlin for her clotting disorder and make any other recommendations to optimize her treatment. Updated Visit, October 08, 2020: Telephone only Received call from pt stating she was seen in [facility] ER for numbness in her chest, throat, and extremities, and sob which has been worsening over the last week. We arranged a telephone visit for her toreview questions with me. Sanna Rendon is a 34 year old female seen for Hypercoagulable state and recent concerns and symptoms that required her to be seen at [facility] ER. She went to the ER with Gradual worsening of breathing after progressive tingling of fingers and legs. She currently remains very fatigued even though she is sleeping well. Now recalls that before her stroke she remembers having a bull's eye rash and was seen with severe headaches in [place], [place] - was found to have a [...] a root canal and was sent to [facility] for MRI which [...] history goes back to January 2016 in [facility] where she had persisting headaches and slurred speech followed by lower extremity weakness. This took a few months to resolve and she is back to her normal state of being but some point in time during her her next she was seen by Dr. Humera Hyde in [place] as well and was found to have [...] CPE Hematology and Oncology Services Provided at: [place], [place] CC: MD Wilton Day, [address] [place] [address] Humaira Gaviria MD [address] [place] [address] [place] [address] MD Cosmo Kingston MD Michael Blank, MD documented in this encounterThe [facility]05-24-[facility]23 Miscellaneous Notes* Telephone Encounter - Cheri Acharya Sec - 09/20/2022 7:06 AM EDT Cxed appt * Telephone Encounter - Valeri Yeung RN - 09/19/2022 3:29 PM EDT Patient would like to have labs drawn at [facility]. Called [facility] lab to get fax number. Lab orders faxed to [phone] Valeri Yeung RN PSS: Can you cancel lab appointment for 09/21/22 here. Thanks. Valeri Yeung RN documented in this encounterThe [facility]04-04-2023 Instructions* Patient Instructions* Kristofer Calix MD - 08/01/2022 10:56 AM EDT Continue Lovenox - patient prefers 40 mg (rather than rec 80mg) 8 weeks - labs Phone / Virtual call after documented in this encounterThe [facility] Hospital03-30-2023 History of Present illness Narrative* Kristofer Calix MD - 07/27/2022 1:18 PM EDT NAME: Sanna Rendon CLINIC NO.: [id number] DATE OF SERVICE: July 27, 2022 (Levon) [...] later in 2018. These were found in [place], [place]. I don't have access to these [...] rash shortly before presenting to [facility] in 2016 with headaches and was [...] and at age 69. Both lived in [facility] but she was adopted. She was not able to see ID in October and will be seeing Dr. Baugh next week. Also will have her see Dr. Hamlin for her clotting disorder and make any other recommendations to optimize her treatment. Updated Visit, October 08, 2020: Telephone only Received call from pt stating she was seen in [facility] ER for numbness in her chest, throat, and extremities, and sob which has been worsening over the last week. We arranged a telephone visit for her domingoeview questions with me. Sanna Rendon is a 34 year old female seen for Hypercoagulable state and recent concerns and symptoms that required her to be seen at [facility] ER. She went to the ER with Gradual worsening of breathing after progressive tingling of fingers and legs. She currently remains very fatigued even though she is sleeping well. Now recalls that before her stroke she remembers having a bull's eye rash and was seen with severe headaches in [place], [place] - was found to have a [...] a root canal and was sent to [facility] for MRI which [...] history goes back to January 2016 in [facility] where she had persisting headaches and slurred speech followed by lower extremity weakness. This took a few months to resolve and she is back to her normal state of being but some point in time during her her next she was seen by Dr. Humera Hyde in [place] as well and was found to have [...] which included preparing to see the patient, [id number] patient care, completing clinical documentation, obtaining and/or reviewing separately obtained history, performing a medically appropriate examination, counseling and educating the pat ient/family/caregiver, ordering medications, tests, or procedures, independently interpreting results (not separately reported), and care coordination (not separately reported). Kristofer Calix MD, CPE Hematology and Oncology Services Provided at: [place], [place] CC: MD Wilton Day, [address] [place] [address] Humaira Gaviria MD [address] [facility] [id number] MD Cosmo Kingston MD Michael Blank, MD documented in this encounterThe [facility] Hospital12-07-2022 History of Present illness Narrative* Alison [...] standard infusion rate. documented in this encounterThe [facility] Hospital12-06-2022 Miscellaneous Notes* Telephone Encounter - Marleen [...] Meme Gonzalez RN documented in this encounterThe [facility] Hospital12-01-2022 Miscellaneous Notes* Telephone Encounter - Roberta [...] were not included. Kristofer Calix MD [facility] Triage Pool; [facility] Clerical Pool She needs iron MUNIRA - if monoferric isn't approved, lets get her in weekly for Venna for. * Telephone Encounter - Roberta Haskins - 03/27/2022 2:57 PM EST 2. Consider IV iron a. Triage nurse to please call iron results when available this week documented in this encounterThe [facility] Hospital11-28-2022 Instructions* Patient Instructions* Kristofer Calix MD - 03/27/2022 2:51 PM EST Continue Lovenox - patient prefers 40 mg (rather than rec 80mg) Consider IV iron Triage nurse to please call iron results when available this week Will recheck antiphospholipid antibodies as ordered and every 6 months. RTC in 8 weeks - labs same day. documented in this encounterThe [facility] Hospital11-28-2022 History of Present illness Narrative* Kristofer Calix MD - 03/27/2022 2:15 PM EST Images from the original note were not included. NAME: Sanna Rendon CLINIC NO.: [id number] DATE OF SERVICE: March 27, 2022 (radhaelaina) [...] later in 2018. These were found in [place], [place]. I don't have access to these [...] rash shortly before presenting to [facility] in 2016 with headaches and was [...] and at age 69. Both lived in [facility] but she was adopted. She was not able to see ID in October and will be seeing Dr. Baugh next week. Also will have her see Dr. Hamlin for her clotting disorder and make any other recommendations to optimize her treatment. Updated Visit, October 08, 2020: Telephone only Received call from pt stating she was seen in [facility] ER for numbness in her chest, throat, and extremities, and sob which has been worsening over the last week. We arranged a telephone visit for her chanw questions with me. Sanna Rendon is a 34 year old female seen for Hypercoagulable state and recent concerns and symptoms that required her to be seen at [facility] ER. She went to the ER with Gradual worsening of breathing after progressive tingling of fingers and legs. She currently remains very fatigued even though she is sleeping well. Now recalls that before her stroke she remembers having a bull's eye rash and was seen with severe headaches in [place], [place] - was found to have a [...] a root canal and was sent to [facility] for MRI which [...] history goes back to January 2016 in [facility] where she had persisting headaches and slurred speech followed by lower extremity weakness. This took a few months to resolve and she is back to her normal state of being but some point in time during her her next she was seen by Dr. Humera Hyde in [place] as well and was found to have [...] which included preparing to see the patient, [id number] patient care, completing clinical documentation, obtaining and/or reviewing separately obtained history, performing a medically appropriate examination, counseling and educating the pat ient/family/caregiver, ordering medications, tests, or procedures, independently interpreting results (not separately reported), and care coordination (not separately reported). Kristofer Calix MD, CPE Hematology and Oncology Services Provided at: [place], [place] CC: MD Wilton Day, [address] [place] [address] Humaira Gaviria MD [address] [place] [id number] MD Cosmo Kingston MD Michael Blank, MD documented in this encounterThe [facility] Hospital10-03-2022 Instructions* Patient Instructions* Kristofer Calix MD - 01/30/2022 12:[address] Hmalin's expertise and will prescribe Lovenox - patient prefers 40 mg (rather than rec 80mg) Will recheck antiphospholipid antibodies as ordered and every 6 months. RTC in 8 weeks - labs same day. documented in this encounterThe [facility] Hospital10-03-2022 History of Present illness Narrative* Kristofer Calix MD - 01/30/2022 11:59 AM EDT Images from the original note were not included. NAME: Sanna Rendon CLINIC NO.: [id number] DATE OF SERVICE: January 30, 2022 Some [...] later in 2018. These were found in [place], [place]. I don't have access to these [...] rash shortly before presenting to [facility] in 2016 with headaches and was [...] and at age 69. Both lived in [facility] but she was adopted. She was not able to see ID in October and will be seeing Dr. Baugh next week. Also will have her see Dr. Hamlin for her clotting disorder and make any other recommendations to optimize her treatment. Updated Visit, October 08, 2020: Telephone only Received call from pt stating she was seen in [facility] ER for numbness in her chest, throat, and extremities, and sob which has been worsening over the last week. We arranged a telephone visit for her chanw questions with me. Sanna Rendon is a 34 year old female seen for Hypercoagulable state and recent concerns and symptoms that required her to be seen at [facility] ER. She went to the ER with Gradual worsening of breathing after progressive tingling of fingers and legs. She currently remains very fatigued even though she is sleeping well. Now recalls that before her stroke she remembers having a bull's eye rash and was seen with severe headaches in [facility] was found to have a stroke [...] a root canal and was sent to [facility] for MRI which [...] history goes back to January 2016 in [facility] where she had persisting headaches and slurred speech followed by lower extremity weakness. This took a few months to resolve and she is back to her normal state of being but some point in time during her her next she was seen by Dr. Humera Hyde in [place] as well and was found to have [...] which included preparing to see the patient, [id number] patient care, completing clinical documentation, obtaining and/or reviewing separately obtained history, performing a medically appropriate examination, counseling and educating the pat ient/family/caregiver, and ordering medications, tests, or procedures. Kristofer Calix MD, [place], [place] CC: MD Chalino Dayy Jeanine Herrmann, [address] [place] [address] Humaira Gaviria MD [address] [place] [id number] MD Cosmo Kingston MD Michael Blank, MD documented in this encounterThe [facility] Hospital10-03-2022 Nurse Note* Serina Dawson MA - 01/30/2022 11:55 AM EDT Patient states she may be diagnosed with gestational diabetes, she was from 215 to 52 a couple hours later after eating wheat cereal. She sees OB tomorrow. Serina Dawson MA documented in this encounterThe [facility] Hospital09-02-2022 Miscellaneous Notes* Telephone Encounter - Tonja Pope RN - 12/30/2021 10:15 AM EDT Call received from Sanna requesting refill of Lovenox 40 mg to be sent to [facility] in [place]. FELY: Please review and approve if you agree. Tonja Chery RN documented in this encounterThe [facility] Hospital06-13-2022 Miscellaneous Notes* Telephone Encounter - Meme [place] RN - 10/10/2021 12:15 PM EDT Received call from pt requesting refill of Lovenox 40 mg to be sent to [facility] in [place]. FELY: Pt also states she had one episode of blood in her stool which was dripping blood which concerned her. She is not ready to move to 80 mg of Lovenox at this time. Order pending. Please review and sign if agreeable. Meme [place] RN documented in this encounterThe [facility] Hospital05-10-2022 Miscellaneous Notes* Telephone Encounter - Kristofer [...] Meme [place] RN documented in this encounterThe [facility] Hospital05-09-2022 Miscellaneous Notes* Telephone Encounter - Meme [...] Meme [place] RN documented in this encounterThe [facility] Hospital04-25-2022 Miscellaneous Notes* Telephone Encounter - Meme [...] Meme [place] RN documented in this encounterThe Christ Hospital04-22-2022 Hospital Discharge instructions Patient Education 08/19/2021 [...] including vitamins, herbs, eye drops, creams, and ovpd-lvi-rpmmlyp medicines. ?Whether you are or may be [...] 02/11/2008 Document Revised: 08/05/2019 Document Reviewed: 02/18/2018 [employer] Patient Education 2020 [employer] 08/19/2021 13:02:21 Dysuria Dysuria Dysuria is [...] alcohol may irritate the prostate. Medicines Take emon-rjp-aprpzjk and prescription medicines only as told by [...] 01/12/2005 Document Revised: 03/29/2018 Document Reviewed: 01/31/2018 [employer] Patient Education 2020 [employer]. 08/19/2021 13:02:17 Budget-Friendly Healthy Eating Budget-Friendly Healthy [...] frozen fruits, and frozen vegetables. Avoid buying nrgil-cy-zsw foods, such as pre-cut fruits and vegetables [...] 12/18/2014 Document Revised: 04/17/2018 Document Reviewed: 04/17/2018 [employer] Patient Education 2020 [employer]. 08/19/2021 13:02:15 BMI for Adults BMI for [...] height. This can be done either in [place] or metric measurements. Note that charts are available to help you find your BMI quickly and easily without having to do these calculations yourself. To calculate your BMI in [place] measurements, your health care provider will: [...] medical problems. BMI can be measured using [place] measurements or metric measurements. To interpret your [...] 12/26/2004 Document Revised: 03/29/2018 Document Reviewed: 02/27/2018 [employer] Patient Education 2020 [employer]. 08/19/2021 13:02:11 Paresthesia Paresthesia Paresthesia is an [...] fried or sweet foods. General instructions Take cpeq-met-gblcehs and prescription medicines only as told by [...] 04/06/2003 Document Revised: 05/12/2019 Document Reviewed: 04/25/2018 [employer] Patient Education 2020 [employer]. Follow Up Care 08/19/2021 09:17:52 With:PRAVEEN RESENDEZ FAAFP, Penelope Tony, CHRIS, PED Address: [address], [place] [address]- When:1 to [address] [facility] [place] 04-22-2022 Evaluation + Plan note Future Scheduled Tests Radiology* XR Spine Lumbosacral Minimum 4 Views 08/19/21 [facility]04-07-2022 Miscellaneous Notes* Telephone Encounter - Rboerta Haskins - 08/04/2021 3:36 PM EDT Patient is scheduled for 09/[address] Elliott. Roberta Haskins * Telephone Encounter - Roberta Divine - 08/01/2021 1:05 PM EDT Sent Email to [facility] to refer patient back to Dr. Cosmo Elliott Dx: Primary hypercoagulable state (HCC) Roberta Divine documented in this encounterThe [facility] Hospital04-04-2022 Nurse Note* Ebony Redding Ma - 08/01/2021 12:48 PM EDT UA ran as ordered. Ebony Redding Ma documented in this encounterThe [facility] Hospital03-28-2020 Evaluation + Plan note Future Appointments Appointment Date:07/25/2024 02:30:00 PM Scheduled [facility] Type:CV EKG (FT) Appointment Date:07/25/2024 03:00:00 PM Scheduled Provider: [facility] Appoint[facility] Type:CV Holter/Event (FT) Appointment Date:09/09/2024 08:20:00 AM Scheduled Provider:Penelope CASAS DO, FAAFP Location:[facility] Appointment Type:FM Open Future Scheduled Tests Laboratory* HgbA1c 08/05/24 * HgbA1c 11/04/24 Radiology* CT Soft Tissue Neck w/ Contrast 11/12/23 [facility] 03-28-2020 Evaluation + Plan note Future Appointments Appointment Date:07/25/2024 02:30:00 PM Scheduled Provider: [facility] Appoint[facility] Type:CV EKG (FT) Appointment Date:07/25/2024 03:00:00 PM Scheduled Provider: [facility] Appoint[facility] Type:CV Holter/Event (FT) Appointment Date:09/09/2024 [...] CT Soft Tissue Neck w/ Contrast 11/12/23 [facility] Evaluation + Plan note Future Appointments Appointment Date:11/08/2021 12:40:00 PM Scheduled Provider:Penelope CASAS DO, FAAFP Location:[facility] Appointment Type:FM Open Future Scheduled Tests Radiology* XR Spine Lumbosacral Minimum 4 Views 08/19/[address] [facility] [place] Evaluation + Plan note Future Appointments Appointment Date:11/08/2021 12:40:00 PM Scheduled Provider:Penelope CASAS DO, FAAFP Location:[facility] Appointment Type:FM Open Diagnostic Tests Pending * Urine Culture 08/19/21 Future Scheduled Tests Radiology* XR Spine Lumbosacral Minimum 4 Views [facility]19[facility] App[facility]ments Appointment Date:09/21/2022 10:00:00 AM Scheduled Provider:Penelope CASAS DO, FAAFP Location:[facility] Future Appointments Appointment Date:10/20/2022 09:40:00 AM Scheduled Provider:Penelope CASAS DO, FAAFP [facility] App[facility]ments Appointment Date:01/26/2023 10:40:00 AM Scheduled Provider:Penelope CASAS DO, FAAFP Location:[facility] Appointment Type: Open [facility] Evaluation + Plan note Future Appointments Appointment Date:04/17/2023 02:20:00 PM Scheduled Provider:Penelope CASAS DO, FAAFP Location:[facility] Appointment Type:FM Open Future Scheduled Tests Laboratory* HgbA1c 02/15/23 * Thyroid Stimulating Hormone 02/15/23 * Thyroid Stimulating Hormone 01/11/[address] [facility] Evaluation + Plan note Future Appointments Appointment Date:07/24/2023 01:20:00 PM Scheduled Provider:Penelope CASAS DO, FAAFP Location:[facility] Appointment Type:FM Open Future Scheduled Tests Laboratory* HgbA1c 02/15/23 * Thyroid Stimulating Hormone [facility]15[facility] Future App[facility]ments Appointment Date:07/24/2023 01:20:00 PM Scheduled Provider:Penelope CASAS DO, FAAFP Location:[facility] Appointment Type: Open [facility] Evaluation + Plan note Future Appointments Appointment Date:12/03/2023 12:40:00 PM Scheduled Provider:Penelope CASAS DO, FAAFP Location:[facility] Appointment Type:FM Open Future Scheduled Tests Laboratory* HgbA1c 08/03/[address] [facility] evaluation + Plan note [...] Face Neck w/o contrast 11/09/[address] 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 evaluation + Plan note Future Appointments Appointment Date:05/16/2024 11:40:00 AM Scheduled Provider:Penelope CASAS DO, FAAFP Location:[facility] Appointment Type:FM Open Future Scheduled Tests Laboratory* HgbA1c 05/07/24 * HgbA1c 08/05/24 * HgbA1c 11/04/24 Radiology* CT Soft Tissue Neck w/ Contrast 11/12/23 [facility] evaluation + Plan note Future Appointments Appointment Date:05/16/2024 11:40:00 AM Scheduled Provider:Penelope CASAS DO, FAAFP Location:[facility] Appointment Type:FM Open Diagnostic Tests Pending * HIV Screen 4th Generation wRfx 02/23/24 Future Scheduled Tests Laboratory* HgbA1c 05/07/24 * HgbA1c 08/05/24 * HgbA1c 11/04/24 Radiology* CT Soft Tissue Neck w/ Contrast 11/12/23 [facility] evaluation + Plan note Future Appointments Appointment Date:05/16/2024 11:40:00 AM Scheduled Provider:Penelope CASAS DO, FAAFP Location:[facility] Appointment Type:FM Open Future Scheduled Tests Laboratory* HgbA1c 08/05/24 * HgbA1c 11/04/24 Radiology* CT Soft Tissue Neck w/ Contrast 11/12/23 [facility] evaluation + Plan note Future Appointments Appointment Date:05/16/2024 11:40:00 AM Scheduled Provider:Penelope CASAS DO, FAAFP Location:[facility] Appointment Type:FM Open Diagnostic Tests Pending * Urine Culture 03/01/24 Future Scheduled Tests Laboratory* HgbA1c 08/05/24 * HgbA1c 11/04/24 Radiology* CT Soft Tissue Neck w/ Contrast 11/12/23 [facility] evaluation + Plan note Future Appointments Appointment Date:07/07/2024 02:20:00 PM Scheduled Provider:Penelope CASAS DO, FAAFP Location:[facility] Appointment Type:FM Open Future Scheduled Tests Laboratory* HgbA1c 08/05/24 * HgbA1c 11/04/24 Radiology* CT Soft Tissue Neck w/ Contrast 11/12/[address] [facility] evaluation + Plan note Future Appointments Appointment Date:09/09/2024 08:20:00 AM Scheduled Provider:Penelope CASAS DO, FAAFP Location:[facility] Appointment Type:FM Open Future Scheduled Tests Laboratory* HgbA1c 08/05/24 * HgbA1c 11/04/24 Radiology* CT Soft Tissue Neck w/ Contrast 11/12/[address] [facility] evaluation note* Diagnosis Infective urethritis- Primary Urethritis, unspecified [facility]* Diagnosis Primary hypercoagulable state (HCC) Primary hypercoagulable state CVA, old, speech/language deficit Speech and language deficit, unspecified, 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 Hyposmolality and/or hyponatremia documented in this encounter [facility] note* Diagnosis Primary hypercoagulable state (HCC) Primary hypercoagulable state CVA, old, speech/language deficit Speech and language deficit, unspecified, 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 Hyposmolality and/or hyponatremia documented in this encounter [facility] note* Diagnosis Primary hypercoagulable state (HCC)- Primary Primary hypercoagulable state CVA, old, speech/language deficit Speech and language deficit, unspecified, late effect of cerebrovascular disease Antiphospholipid antibody syndrome (HCC) Primary hypercoagulable state Anemia, unspecified type documented in this encounter [facility] note* Diagnosis Iron deficiency anemia secondary to blood loss (chronic) Iron deficiency anemia of Anemia of mother, complicating , childbirth, or the puerperium, unspecified as to episode of care documented in this encounter [facility] note* 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 Iron deficiency anemia of Anemia of mother, complicating , childbirth, or the puerperium, unspecified as to episode of care documented in this encounter [facility] note* Diagnosis Primary hypercoagulable state (HCC) Primary hypercoagulable state CVA, old, speech/language deficit Speech and language deficit, unspecified, 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 Hyposmolality and/or hyponatremia documented in this encounter [facility] note* 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 Iron deficiency anemia of Anemia of mother, complicating , childbirth, or the puerperium, unspecified as to episode of care documented in this encounter [facility] note* Diagnosis Primary hypercoagulable state (HCC) Primary hypercoagulable state CVA, old, speech/language deficit Speech and language deficit, unspecified, 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 Hyposmolality and/or hyponatremia documented in this encounter [facility] note* Diagnosis Primary hypercoagulable state (HCC)- Primary Primary hypercoagulable state 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, old, speech/language deficit Speech and language deficit, unspecified, late effect of cerebrovascular disease [facility] Diagnosis Primary hypercoagulable state (HCC) Primary hypercoagulable state CVA, old, speech/language deficit Speech and language deficit, unspecified, 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 Hyposmolality and/or hyponatremia [facility]* Diagnosis Primary hypercoagulable state (HCC)- Primary Primary hypercoagulable state Iron deficiency anemia of Anemia of mother, complicating , childbirth, or the puerperium, unspecified as to episode of care Iron deficiency anemia secondary to blood loss (chronic) Vitamin D deficiency Unspecified vitamin D deficiency [facility] Diagnosis Primary hypercoagulable state (HCC)- Primary Primary hypercoagulable state Iron deficiency anemia secondary to blood loss (chronic) Vitamin D deficiency Unspecified vitamin D deficiency CVA, old, speech/language deficit Speech and language deficit, unspecified, late effect of cerebrovascular disease Antiphospholipid antibody syndrome (HCC) Primary hypercoagulable state [facility]* Diagnosis Primary hypercoagulable state (HCC)- Primary Primary hypercoagulable state CVA, old, speech/language deficit Speech and language deficit, unspecified, late effect of cerebrovascular disease Hypercalcemia Vitamin D deficiency Unspecified vitamin D deficiency Iron deficiency anemia secondary to blood loss (chronic) Malaise and fatigue Other malaise and fatigue [facility]* Diagnosis Vitamin D deficiency- Primary Unspecified vitamin D deficiency 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) Antiphospholipid antibody syndrome (HCC) Primary hypercoagulable state Malaise and fatigue Other malaise and fatigue [facility] Diagnosis Vitamin D deficiency- Primary Unspecified vitamin D deficiency 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) [facility] 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 [facility]* Diagnosis Iron deficiency anemia of - Primary Anemia of mother, complicating , childbirth, or the puerperium, unspecified as to episode of care Iron deficiency anemia secondary to blood loss (chronic) [facility] Diagnosis Iron deficiency anemia of - Primary Anemia of mother, complicating , childbirth, or the puerperium, unspecified as to episode of care Iron deficiency anemia secondary to blood loss (chronic) 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 Vitamin D deficiency Unspecified vitamin D deficiency Malaise and fatigue Other malaise and fatigue [facility] Diagnosis Primary hypercoagulable state (HCC) Primary hypercoagulable state CVA, old, speech/language deficit Speech and language deficit, unspecified, 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 Hyposmolality and/or hyponatremia [facility] Diagnosis Missed menses , unspecified gestational age Encounter for supervision of normal first in first trimester Hypothyroidism (acquired) ([facility]/HCC) Unspecified hypothyroidism Low vitamin D level documented in this encounter [facility]* Diagnosis 14 weeks gestation of Second trimester state, incidental Confirm viability with history of miscarriage, ultrasound Encounter for routine screening for malformation using ultrasonics documented in this encounter [facility] HealthcareEvaluation noteNo assessment information availableMadison Health Ctr Work Phone: Evaluation note* Diagnosis Primary hypercoagulable state (HCC)- Primary Primary hypercoagulable state CVA, old, speech/language deficit Speech and language deficit, unspecified, 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) Vitamin D deficiency Unspecified vitamin D deficiency Antiphospholipid antibody syndrome (HCC) Primary hypercoagulable state [facility] Diagnosis Follow-up visit after miscarriage [...] and/or hyponatremia [facility] Diagnosis Antiphospholipid antibody positive- Primary Other and unspecified nonspecific immunological findings Iron deficiency anemia secondary to blood loss (chronic) Malaise and fatigue Other malaise and fatigue Vitamin D deficiency Unspecified vitamin D deficiency [facility] Diagnosis Amenorrhea Absence of menstruation Missed menses , unspecified gestational age Encounter for supervision of normal first in first trimester Thyroid disease ([facility]/HCC) Unspecified disorder of thyroid documented in this encounter [facility]* Diagnosis Gestational diabetes mellitus (GDM), antepartum, gestational diabetes method of control unspecified- Primary [facility] Diagnosis Primary hypercoagulable state (HCC) Primary hypercoagulable state CVA, old, speech/language deficit Speech and language deficit, unspecified, 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 Hyposmolality and/or hyponatremia [facility] Diagnosis Primary hypercoagulable state (HCC)- Primary Primary hypercoagulable state CVA, old, speech/language deficit Speech and language deficit, unspecified, 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 Hyposmolality and/or hyponatremia Personal history of TIA (transient ischemic attack) Transient ischemic attack (TIA), and cerebral infarction without residual deficits [facility] Diagnosis Second trimester ([facility]HS-HCC) state, incidental 13 weeks gestation of ([facility]) Thyroid disease Unspecified disorder of thyroid Multigravida of advanced maternal age in second trimester ([facility]) Gestational diabetes mellitus (GDM), antepartum, gestational diabetes method of control unspecified([facility]) Elevated glucose tolerance test Impaired glucose tolerance test documented in this encounter [facility]* Diagnosis Gestational diabetes mellitus (GDM), antepartum, gestational diabetes method of control unspecified- Primary [facility]* Diagnosis Second trimester (HHS-HCC) state, incidental 16 weeks gestation of ([facility]) Screening, , for anatomic survey ([facility]) Encounter for anatomic survey Vaginal discharge Leukorrhea, not specified as infective Sinus headache Headache [facility] Diagnosis Insulin controlled gestational diabetes mellitus (GDM) in second trimester- Primary [facility]* Diagnosis 19 weeks gestation of ([facility]-HCC) Second trimester (HHS-HCC) state, incidental Thyroid disease Unspecified disorder of thyroid Multigravida of advanced maternal age in second trimester (HHS-HCC) Gestational diabetes mellitus (GDM), antepartum, gestational diabetes method of control unspecified([facility]-HCC) [facility] Diagnosis Gestational diabetes mellitus (GDM) in second trimester controlled on oral hypoglycemic drug- Primary documented in [facility]* Diagnosis Antiphospholipid antibody positive- Primary Other and unspecified nonspecific immunological findings Iron deficiency anemia secondary to blood loss (chronic) Vitamin D deficiency Unspecified vitamin D deficiency Primary hypercoagulable state (HCC) Primary hypercoagulable state [facility]* Diagnosis Gestational diabetes mellitus (GDM) in second trimester controlled on oral hypoglycemic drug- Primary [facility]* Diagnosis Multigravida of advanced maternal age in second trimester- Primary Antiphospholipid syndrome complicating , antepartum Gestational diabetes mellitus (GDM) in second trimester controlled on oral hypoglycemic drug Insulin controlled gestational diabetes mellitus (GDM) in second trimester AMA (advanced maternal age) multigravida 35+, second trimester Hypothyroidism, unspecified type documented in this [facility]* Diagnosis 22 weeks [...] Hyposmolality and/or hyponatremia documented [facility]* Diagnosis Multigravida of [...] (GDM), antepartum, gestational diabetes method of control unspecified([facility]) Multigravida of advanced maternal age in second trimester ([facility]) H/O loss Lightheaded Dizziness and giddiness [...] (HHS-HCC) state, incidental 25 weeks gestation of ([facility]) Gestational diabetes mellitus (GDM), antepartum, gestational diabetes method of control unspecified([facility]) Anticoagulant long-term use Encounter for long-term (current) use of anticoagulants Antiphospholipid antibody positive Other and unspecified nonspecific immunological findings Antiphospholipid antibody syndrome ([facility]) Primary hypercoagulable state documented in this encounter [facility]* Diagnosis 27 weeks gestation of - Primary Multigravida of advanced maternal age in third trimester Gestational diabetes mellitus (GDM) in second trimester controlled on oral hypoglycemic drug Antiphospholipid syndrome complicating , antepartum Antiphospholipid syndrome Primary hypercoagulable state [facility] Diagnosis Third trimester (HHS-HCC) state, incidental 28 weeks gestation of ([facility]) Anemia complicating childbirth ([facility]) Anticoagulant long-term use Encounter for long-term (current) use of anticoagulants Antiphospholipid antibody positive Other and unspecified nonspecific immunological findings Blood pressure elevated without history of HTN Coagulation defect, unspecified ([facility]) documented [facility] encounter [facility] [...] Narrative No data available for this section [facility] Discharge instructions No data available for this section [facility]InstructionsNot on filedocumented in this encounter [...] be sent through Care Everywhere. * Preeclampsia ([place]) [facility]ructionsNot on file documented in this encounterPro[facility] SystemInstructionsNot on file documented in this encounterPro[facility] SystemInstructionsNot on file documented in this encounterPro[facility] SystemInstructionsNot on file documented in this encounterPro[facility]ica [facility] SystemInstructions* Attachments The following attachments cannot be sent through Care Everywhere. * Preeclampsia ([place]) documented in this encounterPro[facility] SystemInstructionsNot on file documented in this encounterProMedica Health SystemInstructionsNot on file documented in this encounterProMedica Health SystemInstructionsNot on file documented in this encounterProMedica [facility] SystemProgress note No data available for this section [facility] HospitalReason for referral (narrative) , pt reported hx of nasal polyps and deviated septum but never had surgery done Referred by: Shirlene YEBOAH, Lourdes Baltazar [facility] Primary Care Reason for visit Narrative* Consultation (Urgent) - Pending ReviewSpecialtyDiagnoses / ProceduresReferred By ContactReferred To ContactRheumatology Diagnoses 22 weeks gestation of Antiphospholipid syndrome complicating , antepartum Mukul Noyola MD [address] [facility], [address] [place] [id number] Phone: tel: fax: Sam Callahan MD MPH [address] [id number] Phone: tel: fax: Referral IDStatusReasonStart DateExpiration DateVisits RequestedVisits [id number] Review Specialty Services Required [facility] Summary Purpose Family History [...] a 30 minute post dose observation. Rate/Dose Jgsmhd3804/05/2022 2:44 PM VOV095.67 mL/ejFrkqktoxy87/07/2022 2:25 PM HWD592 mL/hrNew Bag/Syringe/Faamwt7404/05/2022 1:52 PM VQH040 mg166.67 mL/hr Medication OrderMAR ActionAction DateDoseRateSite iron sucrose 300 mg in NaCl 0.9% 250 mL (VENOFER) 300 mg, INTRAVENOUS, at 166.67 mL/hr, Administer over 90 Minutes, ONCE, 1 dose, On Christie 04/20/22 at 1400, Please conduct a 30 minute post dose observation. New Bag/Syringe/Ciknbi3504/20/2022 2:01 PM DBJ698 mg166.67 mL/hr Additional Source Comments INFORMATION SOURCE (unrecogn ized section and content) DATE CREATED AUTHOR 10/22/2017 [facility] DATE CREATED AUTHOR AUTHOR'S ORGANIZ ATION 11/14/2017 [employer] DATE CREATED AUTHOR AUTHOR'S ORGANIZ ATION 06/18/2018 [facility] DATE CREATED AUTHOR AUTHOR'S ORGANIZ ATION 12/30/2021 [facility] DATE CREATED AUTHOR AUTHOR'S ORGANIZ ATION 06/09/2022 [facility] DATE CREATED AUTHOR AUTHOR'S ORGANIZ ATION 09/29/2023 [facility] DATE CREATED AUTHOR AUTHOR'S ORGANIZ ATION 12/03/2023 [facility] DATE CREATED AUTHOR AUTHOR'S ORGANIZ ATION 12/09/2023 [facility] DATE CREATED AUTHOR AUTHOR'S ORGANIZ ATION 12/10/2023 [facility] DATE CREATED AUTHOR AUTHOR'S ORGANIZ ATION 01/27/2024 [facility] DATE CREATED AUTHOR AUTHOR'S ORGANIZ ATION 02/24/2024 [facility] DATE CREATED AUTHOR AUTHOR'S ORGANIZ ATION 02/26/2024 [facility] DATE CREATED AUTHOR AUTHOR'S ORGANIZ ATION 02/28/2024 [facility] DATE CREATED AUTHOR AUTHOR'S ORGANIZ ATION 03/02/2024 [facility] DATE CREATED AUTHOR AUTHOR'S ORGANIZ ATION 03/03/2024 [facility] DATE CREATED AUTHOR AUTHOR'S ORGANIZ ATION 05/15/2024 [facility] DATE CREATED AUTHOR AUTHOR'S ORGANIZ ATION 05/17/2024 [facility] DATE CREATED AUTHOR AUTHOR'S ORGANIZ ATION 05/18/2024 [facility] DATE CREATED AUTHOR AUTHOR'S ORGANIZ ATION 05/19/2024 [facility] DATE CREATED AUTHOR AUTHOR'S ORGANIZ ATION 06/11/2024 [facility] DATE CREATED AUTHOR AUTHOR'S ORGANIZ ATION 06/17/2024 [facility] DATE CREATED AUTHOR AUTHOR'S ORGANIZ ATION 07/09/2024 [facility] DATE CREATED AUTHOR AUTHOR'S ORGANIZ ATION 07/12/2024 [facility] DATE CREATED AUTHOR AUTHOR'S ORGANIZ ATION 07/15/2024 [facility] DATE CREATED AUTHOR AUTHOR'S ORGANIZ ATION 08/24/2024 [facility] DATE CREATED AUTHOR AUTHOR'S ORGANIZ ATION 08/26/2024 [facility] DATE CREATED AUTHOR AUTHOR'S ORGANIZ ATION 09/01/2024 [facility] DATE CREATED AUTHOR AUTHOR'S ORGANIZ ATION 09/08/2024 [facility] DATE CREATED AUTHOR AUTHOR'S ORGANIZ ATION 09/11/2024 [facility] DATE CREATED AUTHOR AUTHOR'S ORGANIZ ATION 12/09/2024 [facility] DATE CREATED AUTHOR AUTHOR'S ORGANIZ ATION 01/18/2025 [facility] DATE CREATED AUTHOR AUTHOR'S ORGANIZ ATION 02/07/2025 [facility] DATE CREATED AUTHOR AUTHOR'S ORGANIZ ATION 02/13/2025 [facility] DATE CREATED AUTHOR AUTHOR'S ORGANIZ ATION 03/03/2025 [facility] DATE CREATED AUTHOR AUTHOR'S ORGANIZ ATION 03/11/2025 [facility] DATE CREATED AUTHOR AUTHOR'S ORGANOSEAS ATION 03/12/2025 [facility] Source Comments (unrecognize d section and content) In the event this informatio n is protected by the Federal Confidentiality of Alcohol and Drug Abuse Patient Records regulations: The Federal rules restrict any use of the information to criminally investigate or prosecute any alcohol or drug abuse patient.[facility] the event this information is protected by the Federal Confidentiality of Alcohol and Drug Abuse Patient Records regulations: The Federal rules restrict any use of the information to criminally investigate or prosecute any alcohol or drug abuse patient.[facility]In the event this information is protected by the Federal Confidentiality of Alcohol and Drug Abuse Patient Records regulations: The Federal rules restrict any use of the information to criminally investigate or prosecute any alcohol or drug abuse patient.[facility]In the event this information is protected by the Federal Confidentiality of Alcohol and Drug Abuse Patient Records regulations: The Federal rules restrict any use of the information to criminally investigate or prosecute any alcohol or drug abuse patient.[facility] HospitalIn the event this information is protected by the Federal Confidentiality of Alcohol and Drug Abuse Patient Records regulations: The Federal rules restrict any use of the information to criminally investigate or prosecute any alcohol or drug abuse patient.[facility] HospitalIn the event this information is protected by the Federal Confidentiality of Alcohol and Drug Abuse Patient Records regulations: The Federal rules restrict any use of the information to criminally investigate or prosecute any alcohol or drug abuse patient.[facility] HospitalIn the event this information is protected by the Federal Confidentiality of Alcohol and Drug Abuse Patient Records regulations: The Federal rules restrict any use of the information to criminally investigate or prosecute any alcohol or drug abuse patient.[facility] HospitalIn the event this information is protected by the Federal Confidentiality of Alcohol and Drug Abuse Patient Records regulations: The Federal rules restrict any use of the information to criminally investigate or prosecute any alcohol or drug abuse patient.[facility]In the event this information is protected by the Federal Confidentiality of Alcohol and Drug Abuse Patient Records regulations: The Federal rules restrict any use of the information to criminally investigate or prosecute any alcohol or drug abuse patient.[facility] HospitalIn the event this information is protected by the Federal Confidentiality of Alcohol and Drug Abuse Patient Records regulations: The Federal rules restrict any use of the information to criminally investigate or prosecute any alcohol or drug abuse patient.[facility] HospitalIn the event this information is protected by the Federal Confidentiality of Alcohol and Drug Abuse Patient Records regulations: The Federal rules restrict any use of the information to criminally investigate or prosecute any alcohol or drug abuse patient.[facility] HospitalIn the event this information is protected by the Federal Confidentiality of Alcohol and Drug Abuse Patient Records regulations: The Federal rules restrict any use of the information to criminally investigate or prosecute any alcohol or drug abuse patient.[facility] HospitalIn the event this information is protected by the Federal Confidentiality of Alcohol and Drug Abuse Patient Records regulations: The Federal rules restrict any use of the information to criminally investigate or prosecute any alcohol or drug abuse patient.[facility] HospitalIn the event this information is protected by the Federal Confidentiality of Alcohol and Drug Abuse Patient Records regulations: The Federal rules restrict any use of the information to criminally investigate or prosecute any alcohol or drug abuse patient.[facility] HospitalIn the event this information is protected by the Federal Confidentiality of Alcohol and Drug Abuse Patient Records regulations: The Federal rules restrict any use of the information to criminally investigate or prosecute any alcohol or drug abuse patient.[facility] HospitalIn the event this information is protected by the Federal Confidentiality of Alcohol and Drug Abuse Patient Records regulations: The Federal rules restrict any use of the information to criminally investigate or prosecute any alcohol or drug abuse patient.[facility] HospitalIn the event this information is protected by the Federal Confidentiality of Alcohol and Drug Abuse Patient Records regulations: The Federal rules restrict any use of the information to criminally investigate or prosecute any alcohol or drug abuse patient.[facility] HospitalIn the event this information is protected by the Federal Confidentiality of Alcohol and Drug Abuse Patient Records regulations: The Federal rules restrict any use of the information to criminally investigate or prosecute any alcohol or drug abuse patient.[facility] HospitalIn the event this information is protected by the Federal Confidentiality of Alcohol and Drug Abuse Patient Records regulations: The Federal rules restrict any use of the information to criminally investigate or prosecute any alcohol or drug abuse patient.[facility] HospitalIn the event this information is protected by the Federal Confidentiality of Alcohol and Drug Abuse Patient Records regulations: The Federal rules restrict any use of the information to criminally investigate or prosecute any alcohol or drug abuse patient.[facility] HospitalIn the event this information is protected by the Federal Confidentiality of Alcohol and Drug Abuse Patient Records regulations: The Federal rules restrict any use of the information to criminally investigate or prosecute any alcohol or drug abuse patient.[facility] HospitalIn the event this information is protected by the Federal Confidentiality of Alcohol and Drug Abuse Patient Records regulations: The Federal rules restrict any use of the information to criminally investigate or prosecute any alcohol or drug abuse patient.[facility] HospitalIn the event this information is protected by the Federal Confidentiality of Alcohol and Drug Abuse Patient Records regulations: The Federal rules restrict any use of the information to criminally investigate or prosecute any alcohol or drug abuse patient.[facility] HospitalIn the event this information is protected by the Federal Confidentiality of Alcohol and Drug Abuse Patient Records regulations: The Federal rules restrict any use of the information to criminally investigate or prosecute any alcohol or drug abuse patient.[facility] HospitalIn the event this information is protected by the Federal Confidentiality of Alcohol and Drug Abuse Patient Records regulations: The Federal rules restrict any use of the information to criminally investigate or prosecute any alcohol or drug abuse patient.[facility] HospitalIn the event this information is protected by the Federal Confidentiality of Alcohol and Drug Abuse Patient Records regulations: The Federal rules restrict any use of the information to criminally investigate or prosecute any alcohol or drug abuse patient.[facility] HospitalIn the event this information is protected by the Federal Confidentiality of Alcohol and Drug Abuse Patient Records regulations: The Federal rules restrict any use of the information to criminally investigate or prosecute any alcohol or drug abuse patient.[facility] HospitalIn the event this information is protected by the Federal Confidentiality of Alcohol and Drug Abuse Patient Records regulations: The Federal rules restrict any use of the information to criminally investigate or prosecute any alcohol or drug abuse patient.[facility] HospitalIn the event this information is protected by the Federal Confidentiality of Alcohol and Drug Abuse Patient Records regulations: The Federal rules restrict any use of the information to criminally investigate or prosecute any alcohol or drug abuse patient.[facility] HospitalIn the event this information is protected by the Federal Confidentiality of Alcohol and Drug Abuse Patient Records regulations: The Federal rules restrict any use of the information to criminally investigate or prosecute any alcohol or drug abuse patient.[facility] HospitalIn the event this information is protected by the Federal Confidentiality of Alcohol and Drug Abuse Patient Records regulations: The Federal rules restrict any use of the information to criminally investigate or prosecute any alcohol or drug abuse patient.[facility] HospitalIn the event this information is protected by the Federal Confidentiality of Alcohol and Drug Abuse Patient Records regulations: The Federal rules restrict any use of the information to criminally investigate or prosecute any alcohol or drug abuse patient.[facility] HospitalIn the event this information is protected by the Federal Confidentiality of Alcohol and Drug Abuse Patient Records regulations: The Federal rules restrict any use of the information to criminally investigate or prosecute any alcohol or drug abuse patient.[facility] HospitalIn the event this information is protected by the Federal Confidentiality of Alcohol and Drug Abuse Patient Records regulations: The Federal rules restrict any use of the information to criminally investigate or prosecute any alcohol or drug abuse patient.[facility] HospitalIn the event this information is protected by the Federal Confidentiality of Alcohol and Drug Abuse Patient Records regulations: The Federal rules restrict any use of the information to criminally investigate or prosecute any alcohol or drug abuse patient.[facility] HospitalIn the event this information is protected by the Federal Confidentiality of Alcohol and Drug Abuse Patient Records regulations: The Federal rules restrict any use of the information to criminally investigate or prosecute any alcohol or drug abuse patient.[facility] HospitalIn the event this information is protected by the Federal Confidentiality of Alcohol and Drug Abuse Patient Records regulations: The Federal rules restrict any use of the information to criminally investigate or prosecute any alcohol or drug abuse patient.[facility] HospitalIn the event this information is protected by the Federal Confidentiality of Alcohol and Drug Abuse Patient Records regulations: The Federal rules restrict any use of the information to criminally investigate or prosecute any alcohol or drug abuse patient.[facility] HospitalIn the event this information is protected by the Federal Confidentiality of Alcohol and Drug Abuse Patient Records regulations: The Federal rules restrict any use of the information to criminally investigate or prosecute any alcohol or drug abuse patient.[facility] HospitalIn the event this information is protected by the Federal Confidentiality of Alcohol and Drug Abuse Patient Records regulations: The Federal rules restrict any use of the information to criminally investigate or prosecute any alcohol or drug abuse patient.[facility] HospitalIn the event this information is protected by the Federal Confidentiality of Alcohol and Drug Abuse Patient Records regulations: The Federal rules restrict any use of the information to criminally investigate or prosecute any alcohol or drug abuse patient.[facility] HospitalIn the event this information is protected by the Federal Confidentiality of Alcohol and Drug Abuse Patient Records regulations: The Federal rules restrict any use of the information to criminally investigate or prosecute any alcohol or drug abuse patient.[facility] HospitalIn the event this information is protected by the Federal Confidentiality of Alcohol and Drug Abuse Patient Records regulations: The Federal rules restrict any use of the information to criminally investigate or prosecute any alcohol or drug abuse patient.[facility] HospitalIn the event this information is protected by the Federal Confidentiality of Alcohol and Drug Abuse Patient Records regulations: The Federal rules restrict any use of the information to criminally investigate or prosecute any alcohol or drug abuse patient.[facility] HospitalIn the event this information is protected by the Federal Confidentiality of Alcohol and Drug Abuse Patient Records regulations: The Federal rules restrict any use of the information to criminally investigate or prosecute any alcohol or drug abuse patient.[facility] HospitalIn the event this information is protected by the Federal Confidentiality of Alcohol and Drug Abuse Patient Records regulations: The Federal rules restrict any use of the information to criminally investigate or prosecute any alcohol or drug abuse patient.[facility] HospitalIn the event this information is protected by the Federal Confidentiality of Alcohol and Drug Abuse Patient Records regulations: The Federal rules restrict any use of the information to criminally investigate or prosecute any alcohol or drug abuse patient.[facility] HospitalIn the event this information is protected by the Federal Confidentiality of Alcohol and Drug Abuse Patient Records regulations: The Federal rules restrict any use of the information to criminally investigate or prosecute any alcohol or drug abuse patient.[facility] HospitalIn the event this information is protected by the Federal Confidentiality of Alcohol and Drug Abuse Patient Records regulations: The Federal rules restrict any use of the information to criminally investigate or prosecute any alcohol or drug abuse patient.[facility] HospitalIn the event this information is protected by the Federal Confidentiality of Alcohol and Drug Abuse Patient Records regulations: The Federal rules restrict any use of the information to criminally investigate or prosecute any alcohol or drug abuse patient.[facility] HospitalIn the event this information is protected by the Federal Confidentiality of Alcohol and Drug Abuse Patient Records regulations: The Federal rules restrict any use of the information to criminally investigate or prosecute any alcohol or drug abuse patient.[facility] HospitalIn the event this information is protected by the Federal Confidentiality of Alcohol and Drug Abuse Patient Records regulations: The Federal rules restrict any use of the information to criminally investigate or prosecute any alcohol or drug abuse patient.[facility] HospitalIn the event this information is protected by the Federal Confidentiality of Alcohol and Drug Abuse Patient Records regulations: The Federal rules restrict any use of the information to criminally investigate or prosecute any alcohol or drug abuse patient.[facility] HospitalIn the event this information is protected by the Federal Confidentiality of Alcohol and Drug Abuse Patient Records regulations: The Federal rules restrict any use of the information to criminally investigate or prosecute any alcohol or drug abuse patient.[facility] HospitalIn the event this information is protected by the Federal Confidentiality of Alcohol and Drug Abuse Patient Records regulations: The Federal rules restrict any use of the information to criminally investigate or prosecute any alcohol or drug abuse patient.[facility] Care Teams (unrecognized sec tion and content) Team MemberRelationshipSpecialtyStart DateEnd Date Humaira Gaviria MD [address] [place] [address] PCP - GeneralInternal Medicine07/05/18 Jonny Wilcox MD [address] [place] [address] Primary Staff PhysicianCardiology07/16/18Team MemberRelationshipSpecialtyStart DateEnd Date Humaira Gaviria MD [address] [place] [address] PCP - GeneralInternal Medicine07/05/18 Jonny Wilcox MD [address] [place] [address] Primary Staff PhysicianCardiology07/16/18Team MemberRelationshipSpecialtyStart DateEnd Date Humaira Gaviria MD [address] [place] [address] PCP - GeneralInternal Medicine07/05/18 Jonny Wilcox MD [address] [place] [address] Primary Staff PhysicianCardiology07/16/18Team MemberRelationshipSpecialtyStart DateEnd Date Humaira Gaviria MD [address] [place] [facility] [place] [place] [address] PCP - GeneralInternal Medicine07/05/18 Jonny Wilcox MD [address] [place] [address] Primary Staff PhysicianCardiology07/16/18Team MemberRelationshipSpecialtyStart DateEnd Date Humaira Gaviria MD [address] [place] [facility] [place] [place] [address] PCP - GeneralInternal Medicine07/05/18 Jonny Wilcox MD [address] [place] [address] Primary Staff PhysicianCardiology07/16/18 [place] [address] [place] [address] PhysicianHematology/Oncology09/14/21 Davida Restrepo RN [address] [place] [address] Specialty Care CoordinatorHematology/Oncology09/14/21Team MemberRelationship SpecialtyStart DateEnd Date Penelope Casas [facility] [place] [address] PCP - GeneralFamily Medicine10/04/20Team MemberRelationshipSpecialtyStart DateEnd Date Humaira Gaviria MD [address] [place] [facility] [place] [place] [address] PCP - GeneralInternal Medicine3/8/19 Jonny Wilcox MD [address] [place] [address] Primary Staff PhysicianCardiology07/16/18 [place] [address] [place] [address] PhysicianHematology/Oncology09/14/21 Davida Restrepo, RN [address] [place] [address] Specialty Care CoordinatorHematology/Oncology09/14/21Te MemberRelationship SpecialtyStart DateEnd Date Penelope Casas, [address] [place] [address] PCP - GeneralFamily Vlwceijg15/3/22 Jonny Wilcox MD [address] [place] [address] Primary Staff PhysicianCardiology07/16/18 [place] [address] [place] [address] PhysicianHematology/Oncology09/14/21 Davida Restrepo, RN [address] [place] [address] Specialty Care CoordinatorHematology/Oncology09/14/21Te MemberRelationship SpecialtyStart DateEnd Date Penelope Casas DO [address] [address] PCP - GeneralFamily Czppogqj61/3/22 Jonny Wilcox MD [address] [place] [address] Primary Staff PhysicianCardiology07/16/18 [place] [address] [place] [address] PhysicianHematology/Oncology09/14/21 Davida Restrepo, RN [address] [place] [address] Specialty Care CoordinatorHematology/Oncology09/14/21Te MemberRelationship SpecialtyStart DateEnd Date Penelope Casas, DO [address] [place] [address] PCP - GeneralFamily Ubucteud99/3/22 Jonny Wilcox MD [address] [place] [address] Primary Staff PhysicianCardiology07/16/18 [place] [address] [place] [address] PhysicianHematology/Oncology09/14/21 Davida Restrepo, RN [address] [place] [address] Specialty Care CoordinatorHematology/Oncology09/14/21Te MemberRelationship SpecialtyStart DateEnd Date Penelope Casas, DO [address] [place] [address] PCP - Generalmily Prmtjzgf14/3/22 Jonny Wilcox MD [address] [place] [address] Primary Staff PhysicianCardiology07/16/18 [place] [address] [place] [address] PhysicianHematology/Oncology09/14/21 Davida Restrepo, RN [address] [place] [address] Specialty Care CoordinatorHematology/Oncology09/14/21Te MemberRelationship SpecialtyStart DateEnd [facility] Penelope Casas, DO [address] [place] [address] PCP - GeneralFamily Kfxwgebs84/3/22 Jonny Wilcox MD [address] [place] [address] Primary Staff PhysicianCardiology07/16/18 [place] [address] [place] [address] PhysicianHematology/Oncology09/14/21 Davida Restrepo, RN [address] [place] [address] Specialty Care CoordinatorHematology/Oncology09/14/21Te MemberRelationship SpecialtyStart DateEnd [facility] Penelope Casas, DO [address] [place] [address] PCP - GeneralFamily Asxzdbnl98/3/22 Jonny Wilcox MD [address] [place] [address] Primary Staff PhysicianCardiology07/16/18 [place] [address] [place] [address] PhysicianHematology/Oncology09/14/21 Davida Restrepo, RN [address] [place] [address] Specialty Care CoordinatorHematology/Oncology09/14/21Te MemberRelationship SpecialtyStart Date[facility] Penelope Casas, DO [address] [place] [address] PCP - GeneralFamily Ieziteoh08/3/22 Jonny Wilcox MD [address] [place] [address] Primary Staff PhysicianCardiology07/16/18 [place] [address] [place] [address] PhysicianHematology/Oncology09/14/21 Davida Restrepo, RN [address] [place] [address] Specialty Care CoordinatorHematology/Oncology09/14/21Te MemberRelationship SpecialtyStart DateEnd Date Penelope Casas, [address] [address] PCP - GeneralFamily Lweunhoi01/3/22 Jonny Wilcox MD [address] [place] [address] Primary Staff PhysicianCardiology07/16/18 [place] [address] [place] [address] PhysicianHematology/Oncology09/14/21 Davida Restrepo, MARSHA [address] [place] [address] Specialty Care CoordinatorHematology/Oncology09/14/21Te MemberRelationship SpecialtyStart DateEnd Date Penelope Casas, DO [address] [address] PCP - Generalmily Odrrkyuz45/3/22 Jonny Wilcox MD [address] [place] [address] Primary Staff PhysicianCardiology07/16/18 [place] [address] [place] [address] PhysicianHematology/Oncology09/14/21 Davida Restrepo RN [address] [place], [place] [address] Specialty Care CoordinatorHematology/Oncology09/14/21Team MemberRelationship SpecialtyStart DateEnd Date Penelope Casas DO [address] [place] [address] PCP - Generalmily Riiglsww14/3/22 Jonny Wilcox MD [address] [place] [address] Primary Staff PhysicianCardiology07/16/18 [place] [address] [place] [address] PhysicianHematology/Oncology09/14/21 Davida Restrepo RN [address] [place] [address] Specialty Care CoordinatorHematology/Oncology09/14/21Te MemberRelationship SpecialtyStart DateEnd Date Penelope Casas DO [address] [place] [address] [facility] - [facility] Xphdczpy54/3/22 Jonny Wilcox MD [address] [place] [address] Primary Staff PhysicianCardiology07/16/18 [place] [address] [place] [address] PhysicianHematology/Oncology09/14/21 Davida Restrepo RN [address] [place] [address] Specialty Care CoordinatorHematology/Oncology09/14/21Team MemberRelationship Specialtyart DateEnd Penelope Casas DO [address] [place] [address] PCP - GeneralFamily Pjpipdjw10/3/22 Jonny Wilcox MD [address] [place] [address] Primary Staff PhysicianCardiology07/16/18 [place] [address] [place] [address] PhysicianHematology/Oncology09/14/21 Davida Restrepo RN [address] [place] [address] Specialty Care CoordinatorHematology/Oncology09/14/21Te MemberRelationship SpecialtyStart DateEnd Date Penelope Casas DO [address] [place] [address] PCP - Generalmily Oqignnhs63/3/22 Jonny Wilcox MD [address] [place] [address] Primary Staff PhysicianCardiology07/16/18 [place] [address] [place] [address] PhysicianHematology/Oncology09/14/21 Davida Restrepo RN [address] [place] [address] Specialty Care CoordinatorHematology/Oncology09/14/21Team MemberRelationship SpecialtyStart DateEnd Date Penelope Casas DO [address] [facility] [place] [address] PCP - [facility] Lmmhhqkc87/3/22 Jonny Wilcox MD [address] [place] [address] Primary Staff PhysicianCardiology07/16/18 [place] [address] [place] [address] PhysicianHematology/Oncology09/14/21 Davida Restrepo, RN [address] [place] [address] Specialty Care CoordinatorHematology/Oncology09/14/21Team MemberRelationship SpecialtyStart DateEnd Date Penelope Casas DO [address] [facility] [place] [address] PCP - [facility] Mdliuxzp67/3/22 Jonny Wilcox MD [address] [place] [address] Primary Staff PhysicianCardiology07/16/18 [place] [address] [place] [address] PhysicianHematology/Oncology09/14/21 Davida Restrepo RN [address] [place], [place] [address] Specialty Care CoordinatorHematology/Oncology09/14/21Team MemberRelationship SpecialtyStart DateEnd Date Penelope Casas DO [address] [facility] [place] [address] PCP - Generalmily Qtitfkyb33/3/22 Jonny Wilcox MD [address] [place] [address] Primary Staff PhysicianCardiology07/16/18 [place] [address] [place] [address] PhysicianHematology/Oncology09/14/21 Davida Restrepo, RN [address] [place] [address] Specialty Care CoordinatorHematology/Oncology09/14/21Team MemberRelationship SpecialtyStart DateEnd Date Penelope Casas DO [address] [facility] [place] [address] PCP - Generalmily Thtzwdlt40/3/22 Jonny Wilcox MD [address] [place] [address] Primary Staff PhysicianCardiology07/16/18 [place] [address] [place] [address] PhysicianHematology/Oncology09/14/21 Davida Restrepo, RN [address] [place] [address] Specialty Care CoordinatorHematology/Oncology09/14/21Team MemberRelationship SpecialtyStart DateEnd Date Penelope Casas DO [address] [facility] [place] [place] [address] PCP - GeneralFamily Qkekgets21/3/22 Jonny Wilcox MD [address] [place] [address] Primary Staff PhysicianCardiology07/16/18 [place] [address] [place] [address] PhysicianHematology/Oncology09/14/21 Davida Restrepo, MARSHA [address] [place] [address] Specialty Care CoordinatorHematology/Oncology09/14/21Team MemberRelationship SpecialtyStart DateEnd Date Penelope Casas DO [address] [facility] [place] [address] PCP - Generalmily Cdzeukxb61/3/22 Jonny Wilcox MD [address] [place] [address] Primary Staff PhysicianCardiology07/16/18 [place] [address] [place] [address] PhysicianHematology/Oncology09/14/21 [address] RN [address] [place] [address] Specialty Care CoordinatorHematology/Oncology09/14/21Team MemberRelationship SpecialtyStart DateEnd Date Penelope Casas DO [address] [place] [address] PCP - GeneralFamily Nvacxntw52/3/22 [address]ny [address] MD [address] [facility] [place] [address] Primary Staff PhysicianCardiology07/16/18 [place] [address] [place] [address] PhysicianHematology/Oncology09/14/[address] [place] [address] Specialty Care CoordinatorHematology/Oncology09/14/21Team MemberRelationship SpecialtyStart DateEnd Date Penelope Casas DO [address] [place] [address] PCP - GeneralFamily Hjznubag70/3/22 Jonny Wilcox MD [address] [place] [address] Primary Staff PhysicianCardiology07/16/18 [place] [address] [place] [address] PhysicianHematology/Oncology09/14/[address] RN [address] [facility] [place] [address] Specialty Care CoordinatorHematology/Oncology09/14/21Te MemberRelationship SpecialtyStart DateEnd Date Penelope Casas DO [address] [facility] [place] [address] PCP - GeneralFamily Lujbxrfw47/3/22 Jonny Wilcox MD [address] [place] [address] Primary Staff PhysicianCardiology07/16/18 [place] [address] [place] [address] PhysicianHematology/Oncology09/14/21 Davida Restrepo, MARSHA [address] [place] [address] Specialty Care CoordinatorHematology/Oncology09/14/21Team MemberRelationship SpecialtyStart DateEnd Date Penelope Casas DO [address] [facility] [place] [address] PCP - [facility] Ukruarhn12/3/22 Jonny Wilcox MD [address] [place] [address] Primary Staff PhysicianCardiology07/16/18 [place] [address] [place] [address] PhysicianHematology/Oncology09/14/21 Davida Restrepo RN [address] [place] [address] Specialty Care CoordinatorHematology/Oncology09/14/21Team MemberRelationship SpecialtyStart DateEnd Date Penelope Casas DO [address] [facility] [place] [address] PCP - GeneralFamily Ggnufjju71/3/22 Jonny Wilcox MD [address] [place] [address] Primary Staff PhysicianCardiology07/16/18 [place] [address] [place] [address] PhysicianHematology/Oncology09/14/21 Davida Restrepo, RN [address] [place] [address] Specialty Care CoordinatorHematology/Oncology09/14/21Team MemberRelationship SpecialtyStart DateEnd Date Penelope Casas MD [address] [place] [address] PCP - GeneralFamily Medicine11/07/23Team MemberRelationshipSpecialtyStart DateEnd Date Penelope Casas MD [address] [place] [address] PCP - GeneralFamily Medicine11/07/23Team MemberRelationshipSpecialtyStart DateEnd Date Penelope Casas MD [address] [place] [address] PCP - Generalmily Medicine11/07/23Team MemberRelationshipSpecialtyStart DateEnd Date Penelope Casas MD [address] [place] [address] PCP - Generalmily Medicine11/07/23Team MemberRelationshipSpecialtyStart DateEnd Date Penelope Casas MD [address] [place] [address] PCP - Generalmily Medicine11/07/23 Team Status: Inactive Member Role Status Dates Wilton Herrmann DO Attending Provider Active Start : May 10, 2024 End: May 10, 2024Team MemberRelationshipSpecialtyStart DateEnd Date Penelope Casas DO [address] [place] [address] PCP - GeneralFamily Ppctveva59/3/22 Jonny Wilcox MD [address] [place], [place] [address] Primary Staff PhysicianCardiology07/16/18 [place] [address] [place], [place] [address] PhysicianHematology/Oncology09/14/21 Davida Restrepo RN [address] [place], [place] [address] Specialty Care CoordinatorHematology/Oncology09/14/21Team MemberRelationship SpecialtyStart DateEnd Date Penelope Casas MD [address] [place] [id number] PCP - Generalmily Medicine11/07/23Team MemberRelationshipSpecialtyStart DateEnd Date Penelope Casas MD [address] [place] [address] PCP - Generalmily Medicine11/07/23Team MemberRelationshipSpecialtyStart DateEnd Date Penelope Casas MD [address] [place] [address] PCP - GeneralMercyone Elkader Medical Centerly Medicine11/07/23Team MemberRelationshipSpecialtyStart DateEnd Date Penelope Casas MD [address] [place] [address] PCP - GeneralFamily Medicine11/07/23Team MemberRelationshipSpecialtyStart DateEnd Date Penelope Casas DO [address] [place] [address] PCP - GeneralFamily Leiozcdo43/3/22 Jonny Wilcox MD [address] [place] [address] Primary Staff PhysicianCardiology07/16/18 [place] [address] [place] [address] PhysicianHematology/Oncology09/14/21 Davida Restrepo, MARSHA [address] [place] [address] Specialty Care CoordinatorHematology/Oncology09/14/21Team MemberRelationship SpecialtyStart DateEnd Date Penelope Casas MD [address] [facility] [place] [address] PCP - GeneralFamily Medicine11/07/23Team MemberRelationshipSpecialtyStart DateEnd Date Penelope Casas MD [address] [facility] [place] [address] PCP - GeneralFamily Medicine11/07/23Team MemberRelationshipSpecialtyStart DateEnd Date Penelope Casas DO PCP - GeneralFamily Medicine07/07/19Team MemberRelationshipSpecialtyStart DateEnd Date Penelope Casas DO PCP - GeneralFamily Medicine07/07/19Team MemberRelationshipSpecialtyStart DateEnd Date Penelope Casas MD [address] [place] [address] PCP - GeneralFamily Medicine11/07/23Team MemberRelationshipSpecialtyStart DateEnd Date Penelope Casas DO PCP - GeneralFamily Medicine07/07/19Team MemberRelationshipSpecialtyStart DateEnd Date Penelope Casas DO PCP - GeneralFamily Medicine07/07/19Team MemberRelationshipSpecialtyStart DateEnd Date Penelope Casas DO [address] [facility] [place] [address] PCP - GeneralFamily Wlydtqvw91/3/22 Jonny Wilcox MD [address] [place] [address] Primary Staff PhysicianCardiology07/16/18 [place] [address] [place] [address] PhysicianHematology/Oncology09/14/21 Davida Restrepo, MARSHA [address] [place] [address] Specialty Care CoordinatorHematology/Oncology09/14/21Team MemberRelationship SpecialtyStart DateEnd Date Penelope Casas DO PCP - GeneralFamily Medicine07/07/19Team MemberRelationshipSpecialtyStart DateEnd Date Penelope Casas MD [address] [place] [address] PCP - GeneralFamily Medicine11/07/23Team MemberRelationshipSpecialtyStart DateEnd Date Penelope Casas MD [address] [place] [address] PCP - GeneralFamily Medicine11/07/23Team MemberRelationshipSpecialtyStart DateEnd Date Penelope Casas DO PCP - GeneralFamily Medicine07/07/19Team MemberRelationshipSpecialtyStart DateEnd Date Penelope Casas DO PCP - GeneralFamily Medicine07/07/19Team MemberRelationshipSpecialtyStart DateEnd Date Penelope Casas MD [address] [place] [address] PCP - GeneralFamily Medicine11/07/23Team MemberRelationshipSpecialtyStart DateEnd Date Penelope Casas MD [address] [place] [address] PCP - GeneralFamily Medicine11/07/23Team MemberRelationshipSpecialtyStart DateEnd Date Penelope Casas DO PCP - GeneralFamily Medicine07/07/19Team MemberRelationshipSpecialtyStart DateEnd Date Penelope Casas DO [address] [place] [address] PCP - GeneralFamily Wfdlqurl31/3/22 Jonny Wilcox MD [address] [place] [address] Primary Staff PhysicianCardiology07/16/18 [place] [address] [place], [place] [id number] PhysicianHematology/Oncology09/14/21 Davida Restrepo, MARSHA [address] [place] [address] Specialty Care CoordinatorHematology/Oncology09/14/21Team MemberRelationship SpecialtyStart DateEnd Date Penelope Casas DO PCP - GeneralFamily Medicine07/07/19Team MemberRelationshipSpecialtyStart DateEnd Date Penelope Casas DO PCP - GeneralFamily Medicine07/07/19Team MemberRelationshipSpecialtyStart DateEnd Date Penelope Casas DO PCP - GeneralFamily Medicine07/07/19Team MemberRelationshipSpecialtyStart DateEnd Date Penelope Casas DO PCP - GeneralFamily Medicine07/07/19Team MemberRelationshipSpecialtyStart DateEnd Date Penelope Casas DO PCP - GeneralFamily Medicine07/07/19Team MemberRelationshipSpecialtyStart DateEnd Date Penelope Casas MD [address] [place] [address] PCP - GeneralFamily Medicine11/07/23Team MemberRelationshipSpecialtyStart DateEnd Date Penelope Casas DO PCP - GeneralFamily Medicine07/07/19Team MemberRelationshipSpecialtyStart DateEnd Date Penelope Casas DO PCP - GeneralFamily Medicine07/07/19Team MemberRelationshipSpecialtyStart DateEnd Date Penelope Casas DO PCP - GeneralFamily Medicine07/07/19Team MemberRelationshipSpecialtyStart DateEnd Date Penelope Casas MD [address] [place] [address] PCP - GeneralFamily Medicine11/07/23Team MemberRelationshipSpecialtyStart DateEnd Date Penelope Casas DO PCP - GeneralFamily Medicine07/07/19Team MemberRelationshipSpecialtyStart DateEnd Date Penelope Casas DO PCP - GeneralFamily Medicine07/07/19Team MemberRelationshipSpecialtyStart DateEnd Date Penelope Casas MD [address] [address] PCP - GeneralFamily Medicine11/07/23Team MemberRelationshipSpecialtyStart DateEnd Date Penelope Casas MD [address] [place] [address] PCP - Generalmily Medicine11/07/23Team MemberRelationshipSpecialtyStart DateEnd Date Penelope Casas MD [address] [place] [address] PCP - Generalmily Medicine11/07/23Team MemberRelationshipSpecialtyStart DateEnd Date Penelope Casas MD [address] [place] [address] PCP - Generalmily Medicine11/07/23Team MemberRelationshipSpecialtyStart DateEnd Date Penelope Casas MD [address] [place] [address] PCP - Generalmily Medicine11/07/23Team MemberRelationshipSpecialtyStart DateEnd Date Penelope Casas MD [address] [place] [address] PCP - Generalmily Medicine11/07/23Team MemberRelationshipSpecialtyStart DateEnd Date Penelope Casas MD [address] [place] [address] PCP - Generalmily Medicine11/07/23Team MemberRelationshipSpecialtyStart DateEnd Date Penelope Casas MD [address] [facility] [place] [address] PCP - GeneralFamily Medicine11/07/23 Reason for Visit (unrecogniz ed section and content) ReasonCommentsFuture AppointmentReasonCommentsPatient QuestionReasonComments Medication QuestionReasonOnset DateCommentsRefill Oinkoxj85/13/2022ReasonOnset DateCommentsRefill Wakpewm50/02/2022ReasonCommentsHypercoagulable state6 month follow upReasonCommentsPrimary hypercoagulable state8 week follow upReason CommentsResultsReasonCommentsAppointmentPatient QuestionMedication Question OrdersSpecialtyDiagnoses / ProceduresReferred By ContactReferred To Contact Diagnoses Iron deficiency anemia secondary to blood loss (chronic) Iron deficiency anemia of Procedures INJECTION, FERRIC DERISOMALTOSE, 10 MG Kristofer Calix MD [address] [place] [address] [place] [address] [employer] [employer] [address] [place] [address] Referral IDStatusKelseyasonLafayette DateExpiration DateVisits RequestedVisits [id number]/7/20221/408392YjchjhRmshaaudScducb Request SpecialtyDiagnoses / ProceduresReferred By ContactReferred To Contact Diagnoses Iron deficiency anemia secondary to blood loss (chronic) Iron deficiency anemia of Procedures IRON SUCROSE INJECTION PER 1 MG Kristofer Calix MD [address] [place] [address] [place] [address] [employer] [address] [place] [address] Referral IDStatusKelseyasonStart DateExpiration DateVisits RequestedVisits [id number]/28/20221/1/[id number] DateCommentsRefill Gbavajw5807/03/2022ReasonCommentsAnemiaFollow upReasonCommentsOrdersReason CommentsEstablished PatientReasonCommentsAppointmentReasonCommentsLab Orders ReasonCommentsPrimary hypercoagulable state (HCC)Follow upReasonComments Appointment RescheduledSpecialtyDiagnoses / ProceduresReferred By Contact Referred To Contact Diagnoses Iron deficiency anemia of Iron deficiency anemia secondary to blood loss (chronic) Procedures IRON SUCROSE INJECTION PER 1 MG Kristofer Calix MD [address] [place] [address] [place] [address] [address] [place] [address] Referral IDStatusReasonStart DateExpiration DateVisits RequestedVisits [id number]/8/20241/5/[id number] DateCommentsRefill Yoyehat5811/29/2023easonCommentsAmenorrheaReasonOnset DateCommentsRefill Request 4ReasonCommentsRoutine VisitReasonCommentsPatient UpdateReason CommentsAnemiafollowupReasonCommentsfollow up miscarriageReasonCommentsVaginal BleedingDizzinessReasonCommentsIrregular CyclesReasonOnset DateCommentsRefill Jkjefzf2907/25/2024ReasonOnset DateCommentsRefill Xufpxfm9510/20/2024ReasonOnset DateCommentsRefill Rkwpijh1010/29/2024ReasonCommentsGestational DiabetesSpecialty Diagnoses / ProceduresReferred By ContactReferred To ContactMaternal and Medicine Diagnoses Gestational diabetes mellitus (GDM), antepartum, gestational diabetes method of control unspecified Wilton Herrmann, DO [address] [place] [address] [place] [address] Phone: tel: fax: Maternal- Medicine at [facility] [address] [place] [address] Phone: tel: fax: Referral IDStatusReasonStart DateExpiration DateVisits RequestedVisits [id number] [facility] Required [id number]ksqmc stateAnemia8 week follow up ReasonCommentsMFM consultReasonCommentsRoutine VisitReasonComments [...] BE BASED ON THE PRIMARY CLINICAL RECORDS. [facility]. provides no warranty or guarantee of the accuracy or completeness of information in this document."
[2025-04-09 19:32] VITALS: BP 115/66; PULSE 89
== END 2025-04-09 19:57 | disposition home or self-care (01) ==
LOC: US 19:07 → FBC 19:09
PROVIDERS: Visit Provider Obstetrics & Gynecology
DX: O26.893 Other specified pregnancy related conditions, third trimester (principal); O24.419 Gestational diabetes mellitus in pregnancy, unspecified control; O09.523 Supervision of elderly multigravida, third trimester; Z3A.36 36 weeks gestation of pregnancy; Z79.01 Long term (current) use of anticoagulants
CPT/HCPCS: 76818

== ENCOUNTER 2025-04-13 15:05 | Outpatient (OUT) | payer MEDICAID, SELFPAY ==
--- NOTE | 2025-04-13 15:43 | PC.NURSE ---
Addendum entered by Gladys Buckner 04/13/25 16:33: Pt pad dry following urine sample. Original Note: 1505-Pt arrives to [facility] at this time with support person. Pt given a gown and urine specimen for sample. Pt c/o of SROM at 1200. Pt states her pad had yellow discharge on it at this time; pt denies feeling fluid leakage at this time. Pt denies feeling a gush of fluid. Pt denies feeling cxt's but reports having some cramping and lower back pain. Pt reports movement.
[2025-04-13 15:47] LABS: Glucose Urine UA NEGATIVE (NEGATIVE)
[2025-04-13 15:57] LABS: Cast Seen? NONE SEEN #/LPF (NONE SEEN); Crystals Seen? None Seen #/HPF (None Seen); Urine Culture Indicated YES-FRMC
--- NOTE | 2025-04-13 16:19 | PC.NURSE ---
1530- Amnisure collected at this time. 1535- Cervical exam performed at this time. 1-2/50%/ -3; Vaginal yellow mucous noted with cervical check.
--- NOTE | 2025-04-13 16:29 | PC.NURSE ---
1615- Pt given a discharge instructions at this time. Pt voices understanding. 1620-Pt discharged to home at this time.
== END 2025-04-13 16:20 | disposition home or self-care (01) ==
LOC: FBCO 15:12 → FBC 15:21
PROVIDERS: Visit Provider Obstetrics & Gynecology
DX: O26.893 Other specified pregnancy related conditions, third trimester (principal); Z3A.37 37 weeks gestation of pregnancy
CPT/HCPCS: 59025; 81001; 84112; 87086

== ENCOUNTER 2025-04-16 19:17 | Outpatient (OUT) | payer MEDICAID, SELFPAY ==
--- OUTSIDE RECORDS SUMMARY | 2025-04-03 09:40 | XMS_ITS | Encounter Summary ---
Author Organization [facility] Address [address] [place] [address] Care Team Providers Care Salesperson Terrazzo Tiles Name Role Phone Jonny Wilcox MD Unavailable [phone] Cosmo Elliott MD Unavailable [phone] Davida Restrepo RN Unavailable [phone] Evans Casas DO Primary Care Provider [phone] Source Comments In the event this information is protected by the Federal Confidentiality of Alcohol and Drug AbusePatient Records regulations: The Federal rules restrict any use of the information to criminally investigate or prosecute any alcohol or drug abuse patient.[facility] Reason for Visit * ReasonCommentsChemotherapy Treatment Encounter Details DateTypeDepartmentCare Team (Latest Contact Info)Oeqyzscupee70/05/2025 9:40 AM ESTVisit (SP) Office Hematology/Oncology [address] [place] [address] [place] [address] Salvador Dos Santos MD [address] [place] [address] [place] [address] Antiphospholipid antibody positive (Primary Dx); Iron deficiency anemia secondary to blood loss (chronic); Primary hypercoagulable state (HCC); CVA, old, speech/language deficit; Gestational diabetes mellitus (GDM) in third trimester, gestational diabetes method of control unspecified (HCC); History of hemorrhage; Other vitamin B12 deficiency anemia; Diet controlled gestational diabetes mellitus (GDM) in third trimester (HCC); Antiphospholipid syndrome (HCC); 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; History of CVA (cerebrovascular accident) without residual deficits; Encounter for supervision of high risk in third trimester, antepartum (HCC) Social History Tobacco UseTypesPacks/DayYears UsedDateSmoking Tobacco: NeverSmokeless Tobacco: NeverAlcohol UseStandard Drinks/WeekCommentsNo0 (1 standard drink = 0.6 oz pure alcohol)PHQ-2AnswerDate RecordedPHQ-2 [id number] Deprivation Index AnswerDate RecordedNational Score (1-100), lower number is lower risk58 09/28/2022State Score (1-10), lower number is lower [id number] from: https://www.neighborhoodatlas.[facility].edu/. Last address used for z[address]Estimated Date of DeliveryCommentsYes 07/28/2024Sex and Gender InformationValueDate RecordedSex Assigned at BirthNot on fileLegal DszTafksp67/29/2018 10:06 AM ESTGender IdentityNot on fileSexual OrientationNot on fileOccupationIndustryJob Start DateJob End Datestay at home momNot on fileNot on fileNot on filedocumented as of this encounter Last Filed Vital Signs Vital SignReadingTime TakenCommentsBlood Ybnrzjxw183/7412 9:24 AM EST Ccdzc908404/03/2025 9:24 AM TRYNhgmlntahgf47.5 ??C (97.7 ??F)04/03/2025 9:24 AM ESTRespiratory Dyog044706/04/2024 9:24 AM ESTOxygen Inzxlqazvj49%04/03/2025 9:24 AM ESTInhaled Oxygen Concentration--Wkmjba79 kg (211 lb 10.3 oz)04/03/2025 9:24 AM [...] exact date may change depending on your injection molding 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 - The [...] supplement recently. You should continue taking regular lkekm-oyn-enzoic B12. - Because you have the MTHFR [...] not included. NAME: Sanna Bone CLINIC NO.: [id number] DATE OF SERVICE: April 03, 2025 (Levon) [...] later in 2018. These were found in [place], [place]. 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 Primary hypercoagulable state (HCC) (D68.59) 4. 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 She has gestational diabetes managed with metformin [...] [place] soon. When she hada stroke in [place], she had symptoms up to a month before: uncontrollable headache, BP was elevated, knee stiffness, and blurry vision. Right facial drooping and difficulty speaking [facility] She continues to take vitamins. Updated [...] and stayed on Lovenox Hgb 13.1 @ [facility] Recommended ER if [...] at age 69. Both lived in [facility] but she was adopted. She was not able to see ID in October and will be seeing Dr. Baugh next week. Also will have her see Dr. Hamlin for her clotting disorder and make any other recommendations to optimize her treatment. Updated Visit, October 08, 2020: Telephone only Received call from pt stating she was seen in [facility] ER for numbness in her chest, throat, and extremities, and sob which has been worsening over the last week. We arranged a telephone visit for her franci questions with me. Sanna Bone is a 34 year old female seen for Hypercoagulable state and recent concerns and symptoms that required her to be seen at [facility] ER. She went to the ER with Gradual worsening of breathing after progressive tingling of fingers and legs. She currently remains very fatigued even though she is sleeping well. Now recalls that before her stroke she remembers having a bull's eye rash and was seen with severe headaches in [place], [place] - was found to have a [...] a root canal and was sent to [facility] for MRI which [...] history goes back to January 2016 in [facility] where she had persisting headaches and slurred speech followed by lower extremity weakness. This took a few months to resolve and she is back to her normal state of being but some point in time during her her next she was seen by Dr. Pascual Hyde in [place] as well and was found to have [...] trimester, gestational diabetes method of control unspecified ([facility]) (Z87.59) History of hemorrhage (D51.8) Other vitamin B12 deficiency anemia Plan: VITAMIN B12 (O24.410) Diet controlled gestational diabetes mellitus (GDM) in third trimester ([facility]) (D68.61) Antiphospholipid syndrome (HCC) (Z79.01) detention (current) use of anticoagulants (Z86.73) History of [...] which included preparing to see the patient, wtly-bi-zyis patient care, completing clinical documentation, performing a medically appropriate examination, counseling and educating the patient/family/caregiver, ordering medications, tests, or procedures, independently interpreting results (not separately reported), communicating results to the patient/family/caregiver, and care coordination (not separately reported) Salvador Dos Santos MD, CPE Hematology and Oncology Services Provided at: [facility], [place], [place] . CC: MD Wilton Day, [address] [place] [address] Humaira Gaviria MD [address] [facility] [address] MD Cosmo Kingston MD Michael [place], MD documented in this encounter Plan of Treatment DateTypeDepartmentCare Team (Latest Contact Info)Mfzmzhbmxjh90/09/2026 9:30 AM ESTOffice Visit [facility] [address] [place] [address] lab in 5 weeks05/13/2025 5:00 PM [facility] Hematology/Oncology [address] [place] [place] [address] Salvador Dos Santos MD [address] [place] [address] [place] [address] VV for lab resultsNameTypePriorityAssociated DiagnosesOrder ScheduleVITAMIN B12 [...] loss (chronic) Expected: 05/08/2025 (Approximate), Expires: 04/03/2026VITAMIN S29ElzZsndiup Iron deficiency anemia secondary to blood loss [...] (HCC) Antiphospholipid syndrome (HCC) Primary hypercoagulable state detention (current) use of anticoagulants Long-term (current) use of anticoagulants History of CVA (cerebrovascular accident) without residual deficits Transient ischemic attack (TIA), and cerebral infarction without residual deficits Encounter for supervision of high risk in third trimester, antepartum (HCC) documented in this encounter Care Teams Team MemberRelationshipSpecialtyStart DateEnd Date Evans Casas DO [address] [place] [address] PCP - GeneralFamily Fzucrumc27/3/22 Jonny Wilcox MD [address] [place] [address] Primary Staff PhysicianCardiology07/16/18 [place] [address] [place] [address] PhysicianHematology/Oncology09/14/21 Davida Restrepo, RN [address] [place] [id number] Specialty Care CoordinatorHematology/Oncology09/14/21documented as of this encounter
--- OUTSIDE RECORDS SUMMARY | 2025-04-07 13:30 | XMS_ITS | Encounter Summary ---
Author Organization [facility] tem Address [id number] [address] [place] [address] Care Team Providers Care Licensing Engineer Name Role Phone Evans Casas DO Primary Care Provider [phone] Encounter Details DateTypeDepartmentCare Team (Latest Contact Info)Lgujblwbzdl51/09/2025 1:30 PM ESTTelemedicine Maternal- Medicine at [facility] [address] [place] [phone] Davida Smith PA-C [address] [address] Gestational diabetes mellitus (GDM) in third trimester controlled on oral hypoglycemic drug (Primary Dx) Social History Tobacco UseTypesPacks/DayYears UsedDateSmoking Tobacco: NeverSmokeless Tobacco: NeverAlcohol UseStandard Drinks/WeekCommentsNot Currently0 (1 standard drink = 0.6 oz pure alcohol)ChildcareAnswerDate NqhogqdeLbbrphaqkEvnuohe90/31/2019 EmploymentAnswerDate AqmuumwfWbagvzwbzpTjmgiib07/31/2019Hunger ScreeningAnswer Date RecordedWithin the past 12 months we worried whether our food would run out before we got money to buy more.Never True01/01/2025Within the past 12 months the food we bought just didn't last and we didn't have money to get more.Never True01/01/2025Purpose - LifeAnswerDate RecordedPurpose and direction in life Yrhrppo62/11/2021Estimated Date of IbxarhmcZwabqypsUlw16/05/2026ased on last menstrual period of 07/28/2024Sex and Gender InformationValueDate Recorded Sex Assigned at BirthNot on fileLegal HvcXxequc84/31/2019 12:25 PM EDTGender IdentityNot on fileSexual OrientationNot on filedocumented as of this encounter Progress Notes * Davida Smith PA-C - 04/07/2025 1:30 PM EST Maternal- Medicine Consultation VIDEO Patient is present at home , provider present at [facility] HISTORY OF PRESENT ILLNESS: Sanna Bone is [...] so she can have them done at [place] - Anatomy survey with MFM -followsup scheduled [...] done , plan to transition anticoagulation with rehabilitation caseworker. Confirmed / discussed this plan with Dr [...] by e-mail to: or by fax to: [phone] Davida Smith PA-C Maternal- Medicine Office phone: [phone] Davida Smith PA-C 04/07/25 9252 documented in this encounter Plan of Treatment Not on file documented as of this encounter Visit Diagnoses Diagnosis Gestational diabetes mellitus (GDM) in third trimester controlled on oral hypoglycemic drug- Primary documented in this encounter Care Teams Team MemberRelationshipSpecialtyStart DateEnd Date Evans Casas DO PCP - GeneralFamily Medicine07/07/19documented as of this encounter
--- OUTSIDE RECORDS SUMMARY | 2025-04-08 13:40 | XMS_ITS | Encounter Summary ---
Author Organization [facility] Address [address] [place] [address] Care Team Providers Care Strainer Tender Name Role Phone Evans Casas MD Primary Care Provider [phone] Reason for Visit * ReasonCommentsRoutine Visit Encounter Details DateTypeDepartmentCare Team (Latest Contact Info)Tudfqtlbkze06/10/2025 1:40 PM ESTRoutine [facility] [address] [place] [address] Wilton Herrmann DO [address] [place], [place] [id number] 36 weeks gestation of ([facility]); Third trimester ([facility]); Anemia complicating childbirth ([facility]); Anticoagulant long-term use; Antiphospholipid antibody positive; Antiphospholipid antibody syndrome ([facility]); Thyroid disease Social History Tobacco UseTypesPacks/DayYears UsedDateSmoking Tobacco: NeverSmokeless Tobacco: NeverAlcohol UseStandard Drinks/WeekCommentsNever0 (1 standard drink = 0.6 oz pure alcohol)PHQ-2AnswerDate RecordedPatient Health Questionnaire-2 Score0 03/03/2025Estimated Date of HmefiqvmFqubecoxGcy17/05/2026ased on last menstrual period of 07/28/2024Sex and Gender InformationValueDate RecordedSex Assigned at BirthNot on fileLegal LvyNaanes18/15/2023 11:19 PM EDTGender IdentityNot on fileSexual OrientationNot on filedocumented as of this encounter Last Filed Vital Signs Vital SignReadingTime TakenCommentsBlood Aeumfcko399/7812 2:05 PM EST Pulse--Temperature--Respiratory Rate--Oxygen Saturation--Inhaled Oxygen Concentration--Jcboya62.7 kg (211 lb)04/08/2025 2:05 PM ESTHeight--Body Mass [...] Diagnosis Date Noted 32 weeks gestation of ([facility]) 11/28/2019 Abdominal pain 06/12/2023 Acute bronchitis due to infection 06/12/2023 Acute on chronic vesicular eczema of hands and feet 11/15/2023 Anemia complicating childbirth ([facility]) 01/16/2020 Anticoagulant long-term use 02/22/2020 Antiphospholipid antibody positive 09/10/2017 Antiphospholipid antibody syndrome ([facility]) 07/07/2019 Anxiety 06/12/2023 Blood pressure elevated without history of HTN 11/15/2023 BMI 37.0-37.9, adult 11/15/2023 Cerebral infarction, unspecified ([facility]) 05/16/2019 Cerebrovascular accident (CVA) due to stenosis of middle cerebral artery ([facility]) 02/22/2020 Cervicalgia 02/05/2019 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 ([facility]) 01/08/2020 Coagulation defect, unspecified ([facility]) 02/05/2019 Cold intolerance 11/15/2023 Deficiency of other specified B group vitamins 05/16/2019 Deviated septum 11/15/2023 Dizziness and giddiness 02/05/2019 Dry mouth 11/15/2023 Dysfunction of eustachian tube 06/12/2023 Dyspnea 06/12/2023 Elevated blood pressure reading 11/15/2023 Encounter for supervision of normal , unspecified, first trimester ([facility]) 05/29/2019 Environmental allergies 11/15/2023 Fatigue 12/29/2016 First degree perineal laceration during delivery ([facility]) 01/16/2020 Frequency of micturition 02/19/2019 Genitourinary symptoms 08/19/2021 Gestational diabetes mellitus (GDM), antepartum ([facility]) 01/26/2022 H/O: hypothyroidism 11/15/2023 Hematochezia 06/12/2023 [...] anemia 01/16/2020 Irregular uterine bleeding 11/15/2023 problem ([facility]) 06/12/2023 Less than 8 weeks gestation of ([facility]) 06/05/2019 FPC (current) use of antithrombotics/antiplatelets 02/05/2019 Migraine without aura and without status migrainosus, not intractable 09/12/2017 Morbid obesity ([facility] 11/15/2023 Muscle fasciculation 08/19/2021 Nasal polyps 11/15/2023 Non-smoker 11/15/2023 NEETA (obstructive sleep apnea) 11/15/2023 Other acute postprocedural pain 02/03/2019 Other general symptoms and signs 10/28/2019 Other immediate hemorrhage ([facility]) 01/16/2020 Other specified noninflammatory disorders of vagina 02/21/2019 Pain in joint 12/29/2016 Palpitations 08/26/2019 Paresthesia of bilateral legs 11/15/2023 Pelvic and perineal pain 02/01/2019 Personal history of urinary (tract) infections 01/16/2020 Pre-diabetes 11/15/2023 Primary hypercoagulable state ([facility]) 08/01/2022 Pruritus, unspecified 01/02/2020 Psychogenic hyperventilation 06/12/2023 Raised antibody titer 09/25/2017 Right lower quadrant pain 11/15/2023 Right otitis externa 11/15/2023 Salivary gland swelling 11/15/2023 Single live ([facility]) 01/15/2020 Snoring 11/15/2023 Speech and language [...] drainage of cyst WISDOM TOOTH EXTRACTION 2007 [place] teeth REVIEW OF SYSTEMS Review of Systems: [...] nursing note reviewed. Exam conducted with a classroom instructional aide present. Vitals: Estimated body mass index is 34.06 kg/m?? as calculated from the following: Height as of 11/19/23: 5' 6 . Weight as of this encounter: 211 lb. BP: 120/78 Patient's last menstrual period was 07/28/2024. Assessment/Plan ICD-10-CM 1. 36 weeks gestation of ([facility]) Z3A.36 POCT urinalysis dipstick manually resulted 2. Third trimester ([facility]) Z34.93 POCT urinalysis dipstick manually resulted CULTURE, GROUP B STREP WITH SUSCEPTIBLITY CULTURE, GROUP B STREP WITH SUSCEPTIBLITY 3. Anemia complicating childbirth ([facility]) O99.02 4. Anticoagulant long-term use Z79.01 5. Antiphospholipid antibody positive R76.0 6. Antiphospholipid antibody syndrome ([facility]) D68.61 7. Thyroid disease E07.9 Assessment/Plan [...] GROUP B STREP WITH SUSCEPTIBLITYLabRoutine Third trimester ([facility]) Expected: 04/08/2025, Expires: 04/08/2026documented as of this encounter Procedures Procedure NamePriorityDate/TimeAssociated DiagnosisCommentsPOCT URINALYSIS ZQGUWHVFIrshxbs51/10/2025 2:12 PM EST 36 weeks gestation of [...] Location / LateralityCollection Method / VolumeCollection TimeReceived VnbeWtjop59/10/2025 2:12 PM EST Narrative Authorizing ProviderResult TypeResult StatusCorey Montez DOPOINT OF CARE TEST ENTER/EDIT ORDERABLESFinal Result documented in this encounter Visit Diagnoses Diagnosis 36 weeks gestation of ([facility]) Third trimester ([facility]) state, incidental Anemia complicating childbirth ([facility]) Anticoagulant long-term use Encounter for long-term (current) use of anticoagulants Antiphospholipid antibody positive Other and unspecified nonspecific immunological findings Antiphospholipid antibody syndrome ([facility]) Primary hypercoagulable state Thyroid disease Unspecified disorder of thyroid documented in this encounter Care Teams Team MemberRelationshipSpecialtyStart DateEnd Evans Casas MD [address] [facility] [place] [address] PCP - GeneralFamily Medicine11/07/23documented as of this encounter
--- OUTSIDE RECORDS SUMMARY | 2025-04-13 19:35 | XMS_ITS | Continuity of Care Document ---
Author Organization [facility] Address [address] [place] [address] Phone Care Team Providers Care Detective Private Eye Name Role Phone Wilton Herrmann DO Attending Provider [phone] Care Teams Patient Care Team Team Status: Inactive Member Role/Relationship Status Dates Wilton Herrmann DO Attending Provider Active Start : April 13, 2025 End: April 13, 2025 Social History Smoking Status Unknown if ever smoked Observation Status Observation Response Date of Response Legal Sex [facility] (finding[facility] Procedures Procedure Date Performed Status Urine Culture April 13, 2025 active Encounters Encounter Location(s) Arrival/Admit Date Discharge/Departure Date Discharge/Departure Disposition Provider(s) Departed Referred -[facility] April 13, 2025 3:25pm April 13, 2025 3:26pm Discharged to home care or self care (routine discharge) Wilton Herrmann Plan of Treatment Future Tests Future scheduled test information is unavailable Pending Tests Test Name Ordered Date Scheduled Date Urine Culture April 13, 2025 3:25pm Future Visits Future appointment information is unavailable Future Procedures Procedure Name Ordered Date Scheduled Date Urine Culture April 13, 2025 8:54pm Decem 2024 3:25pm Future Medications Future medication information is unavailable Patient Instructions Patient instructions are unavailable
--- OUTSIDE RECORDS SUMMARY | 2025-04-15 13:50 | XMS_ITS | Encounter Summary ---
Author Organization [facility] Address [address] [place] [address] Care Team Providers Care Solutions Consultant Name Role Phone Evans Casas MD Primary Care Provider Reason for Visit * ReasonCommentsRoutine Visit Encounter Details DateTypeDepartmentCare Team (Latest Contact Info)Vyqwxpyattb79/17/2025 1:50 PM ESTRoutine [facility] [address] [place] [phone] Wilton Herrmann DO [address] [place], [place] [id number] Third trimester ([facility]); 37 weeks gestation of ([facility]) Social History Tobacco UseTypesPacks/DayYears UsedDateSmoking Tobacco: NeverSmokeless Tobacco: NeverAlcohol UseStandard Drinks/WeekCommentsNever0 (1 standard drink = 0.6 oz pure alcohol)PHQ-2AnswerDate RecordedPatient Health Questionnaire-2 Score0 03/03/2025Estimated Date of FkrkjquoHubulhhhHhx46/05/2026ased on last menstrual period of 07/28/2024Sex and Gender InformationValueDate RecordedSex Assigned at BirthNot on fileLegal ZwlUwiyuq82/15/2023 11:19 PM EDTGender IdentityNot on fileSexual OrientationNot on filedocumented as of this encounter Last Filed Vital Signs Vital SignReadingTime TakenCommentsBlood Iakrncej004/7404/15/2025 2:45 PM EST Pulse--Temperature--Respiratory Rate--Oxygen Saturation--Inhaled Oxygen Concentration--Itwzxl60.8 kg (209 lb)04/15/2025 2:45 PM ESTHeight--Body Mass [...] Date Noted 32 weeks gestation of ([facility]) 11/28/2019 Abdominal pain 06/12/2023 Acute bronchitis due to infection 06/12/2023 Acute on chronic vesicular eczema of hands and feet 11/15/2023 Anemia complicating childbirth ([facility]) 01/16/2020 Anticoagulant long-term use 02/22/2020 Antiphospholipid antibody positive 09/10/2017 Antiphospholipid antibody syndrome ([facility]) 07/07/2019 Anxiety 06/12/2023 Blood pressure elevated without history of HTN 11/15/2023 BMI 37.0-37.9, adult 11/15/2023 Cerebral infarction, unspecified ([facility]) 05/16/2019 Cerebrovascular accident (CVA) due to stenosis of middle cerebral artery ([facility]) 02/22/2020 Cervicalgia 02/05/2019 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 ([facility]) 01/08/2020 Coagulation defect, unspecified ([facility]) 02/05/2019 Cold intolerance 11/15/2023 Deficiency of other specified B group vitamins 05/16/2019 Deviated septum 11/15/2023 Dizziness and giddiness 02/05/2019 Dry mouth 11/15/2023 Dysfunction of eustachian tube 06/12/2023 Dyspnea 06/12/2023 Elevated blood pressure reading 11/15/2023 Encounter for supervision of normal , unspecified, first trimester ([facility]) 05/29/2019 Environmental allergies 11/15/2023 Fatigue 12/29/2016 First degree perineal laceration during delivery ([facility]) 01/16/2020 Frequency of micturition 02/19/2019 Genitourinary symptoms 08/19/2021 Gestational diabetes mellitus (GDM), antepartum ([facility]) 01/26/2022 H/O: hypothyroidism 11/15/2023 Hematochezia 06/12/2023 [...] 01/16/2020 Irregular uterine bleeding 11/15/2023 problem ([facility]) 06/12/2023 Less than 8 weeks gestation of ([facility]) 06/05/2019 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/antiplatelets 02/05/2019 Migraine without aura and without status migrainosus, not intractable 09/12/2017 Morbid obesity ([facility]) 11/15/2023 Muscle fasciculation 08/19/2021 Nasal polyps 11/15/2023 Non-smoker 11/15/2023 NEETA (obstructive sleep apnea) 11/15/2023 Other acute postprocedural pain 02/03/2019 Other general symptoms and signs 10/28/2019 Other immediate hemorrhage ([facility]) 01/16/2020 Other specified noninflammatory disorders of vagina 02/21/2019 Pain in joint 12/29/2016 Palpitations 08/26/2019 Paresthesia of bilateral legs 11/15/2023 Pelvic and perineal pain 02/01/2019 Personal history of urinary (tract) infections 01/16/2020 Pre-diabetes 11/15/2023 Primary hypercoagulable state ([facility]) 08/01/2022 Pruritus, unspecified 01/02/2020 Psychogenic hyperventilation 06/12/2023 Raised antibody titer 09/25/2017 Right lower quadrant pain 11/15/2023 Right otitis externa 11/15/2023 Salivary gland swelling 11/15/2023 Single live ([facility]) 01/15/2020 Snoring 11/15/2023 Speech and [...] advanced maternal age in second trimester ([facility]) 01/05/2025 Thyroid disease 01/05/2025 Resolved Ambulatory Problems Diagnosis Date Noted No Resolved Ambulatory Problems Past Medical History: Diagnosis Date AMA (advanced maternal age) multigravida 35+ ([facility]) Anemia Antiphospholipid syndrome ([facility]) Gestational diabetes ([facility]) Heartburn Hypothyroid Stroke ([facility]) Family History[1] Social History Tobacco Use Smoking [...] nursing note reviewed. Exam conducted with a continuous improvement consultant present. Vitals: Estimated body mass index is 33.73 kg/m?? as calculated from the following: Height as of 11/19/23: 5' 6 . Weight as of this encounter: 209 lb. BP: 116/74 Patient's last menstrual period was 07/28/2024. Assessment/Plan Encounter Diagnosis: ICD-10-CM 1. Third trimester ([facility]) Z34.93 2. 37 weeks gestation of ([facility]) Z3A.37 POCT urinalysis dipstick manually resulted Return [...] drainage of cyst WISDOM TOOTH EXTRACTION 2007 [place] teeth [3] Allergies Allergen Reactions Ciprofloxacin GI [...] this encounter Procedures Procedure NamePriorityDate/TimeAssociated DiagnosisCommentsPOCT URINALYSIS WYAQDHVNOtwqffo03/17/2025 2:45 PM EST 37 weeks gestation of ([facility]) documented in this encounter Results [...] Location / LateralityCollection Method / VolumeCollection TimeReceived HlbkLfoxa14/17/2025 2:45 PM EST Narrative Authorizing ProviderResult TypeResult StatusCorecarmen Herrmann DOPOINT OF CARE TEST ENTER/EDIT ORDERABLESFinal Result documented in this encounter Visit Diagnoses Diagnosis Third trimester ([facility]) state, incidental 37 weeks gestation of ([facility]) documented in this encounter Care Teams Team MemberRelationshipSpecialtyStart DateEnd Date Evans Casas MD [address] [place] [address] PCP - GeneralFamily Medicine11/07/23documented as of this encounter
--- OUTSIDE RECORDS SUMMARY | 2025-04-16 19:21 | XMS_ITS | Clinical Summary ---
Author Organization [facility] Address [address] [place] [address] Care Team Providers Care Vegetable Farm Manager Name Role Phone Unavailable Primary Care Provider Unavailabl e Social History Tobacco UseTypesPacks/DayYears UsedDateSmoking Tobacco: Never Assessed CommentsUnknownSex and Gender InformationValueDate RecordedSex Assigned at Not on fileLegal FduZxixrn18/30/2022 12:25 AM EDTGender IdentityNot on file Sexual OrientationNot on file Plan of Treatment Not on file
--- OUTSIDE RECORDS SUMMARY | 2025-04-16 19:21 | XMS_ITS | Encounter Summary ---
Author Organization [facility] Address [address] [place] [address] Care Team Providers Care Rail Maintenance Worker Name Role Phone Evans Casas MD Primary Care Provider [phone] Encounter Details DateTypeDepartmentCare Team (Latest Contact Info)Kgmqneotfoq46/07/2025bstract [facility] [address] [place] [address] Wilton Herrmann DO [address] [place], [place] [id number] Social History Tobacco UseTypesPacks/DayYears UsedDateSmoking Tobacco: NeverSmokeless Tobacco: NeverAlcohol UseStandard Drinks/WeekCommentsNever0 (1 standard drink = 0.6 oz pure alcohol)PHQ-2AnswerDate RecordedPatient Health Questionnaire-2 Score0 03/03/2025Estimated Date of PnnjkbcrSazhnakdCyn65/05/2026Based on last menstrual period of 07/28/2024Sex and Gender InformationValueDate RecordedSex Assigned at BirthNot on fileLegal FvlYafhwk54/15/2023 11:19 PM EDTGender IdentityNot on fileSexual OrientationNot on filedocumented as of this encounter Plan of Treatment Not on file documented as of this encounter Visit Diagnoses Not on filedocumented in this encounter Care Teams Team MemberRelationshipSpecialtyStart DateEnd Date Evans Casas MD [address] [place] [address] PCP - GeneralFamily Medicine11/07/23documented as of this encounter
--- OUTSIDE RECORDS SUMMARY | 2025-04-16 19:21 | XMS_ITS | Encounter Summary ---
Author Organization [facility] Address [address] [place] [address] Care Team Providers Care Mica Spreader Name Role Phone Evans Casas MD Primary Care Provider [phone] Encounter Details DateTypeDepartmentCare Team (Latest Contact Info)Wvffbdaotzk01/17/2025bstract [facility] [address] [place] [address] Wilton Herrmann DO [address] [place], [place] [address] Social History Tobacco UseTypesPacks/DayYears UsedDateSmoking Tobacco: NeverSmokeless Tobacco: NeverAlcohol UseStandard Drinks/WeekCommentsNever0 (1 standard drink = 0.6 oz pure alcohol)PHQ-2AnswerDate RecordedPatient Health Questionnaire-2 Score0 03/03/2025Estimated Date of ZsibcfwvIuqgfdzrEvu33/05/2026Based on last menstrual period of 07/28/2024Sex and Gender InformationValueDate RecordedSex Assigned at BirthNot on fileLegal IeaTylooo16/15/2023 11:19 PM EDTGender IdentityNot on fileSexual OrientationNot on filedocumented as of this encounter Plan of Treatment Not on file documented as of this encounter Visit Diagnoses Not on filedocumented in this encounter Care Teams Team MemberRelationshipSpecialtyStart DateEnd Date Evans Casas MD [address] [place] [address] PCP - GeneralFamily Medicine11/07/23documented as of this encounter
--- OUTSIDE RECORDS SUMMARY | 2025-04-16 19:21 | XMS_ITS | Encounter Summary ---
Author Organization [facility] Address [address] [place] [address] Care Team Providers Care Sr. Payroll Processor Name Role Phone Evans Casas MD Primary Care Provider [phone] Encounter Details DateTypeDepartmentCare Team (Latest Contact Info)Gmrugfcxpri80/15/2025linisync Result Encounter [facility] Department Unsolicited Wilton Herrmann, DO [address] [place], [place] [id number] Social History Tobacco UseTypesPacks/DayYears UsedDateSmoking Tobacco: NeverSmokeless Tobacco: NeverAlcohol UseStandard Drinks/WeekCommentsNever0 (1 standard drink = 0.6 oz pure alcohol)PHQ-2AnswerDate RecordedPatient Health Questionnaire-2 Score0 03/03/2025Estimated Date of UmaqwfxaRpjkafgfCzc35/05/2026ased on last menstrual period of 07/28/2024Sex and Gender InformationValueDate RecordedSex Assigned at BirthNot on fileLegal AjuYsvbsk34/15/2023 11:19 PM EDTGender IdentityNot on fileSexual OrientationNot on filedocumented as of this encounter Plan of Treatment Not on file documented as of this encounter Procedures Procedure NamePriorityDate/TimeAssociated DiagnosisCommentsAMNISURERoutine 04/13/2025 3:30 PM EST URINE CULTURE - RPCGVicoogs80/15/2025 3:25 PM EST [facility] UA (CLEAN/CATCH) AUTOMOBILE TESTER/MICRO IF IND.Wtideon7804/13/2025 3:25 PM EST documented in this encounter Results * AMNISURE (04/13/2025 3:30 PM EST)ComponentValueRef RangeTest MethodAnalysis TimePerformed AtPathologist SignatureTBH AMNISURENEGATIVENEGATIVETBHSpecimen (Source)Anatomical Location / LateralityCollection Method / VolumeCollection TimeReceived Time04/13/2025 3:30 PM EST04/13/2025 3:44 PM EST Narrative CLINISYNC - 04/13/2025 3:58 PM EST Authorizing ProviderResult TypeResult StatusCorey Montez DOLAB BLOOD ORDERABLES Final ResultPerforming OrganizationAddressCity/State/ZIP CodePhone Number [facility] * URINE CULTURE - [facility] (04/13/2025 3:25 PM EST)ComponentValueRef RangeTest MethodAnalysis TimePerformed AtPathologist SignatureURINE CULTURE - [facility] ??Urine Culture - [facility] SEEFRMC [facility] RESULT^[facility] RESULT TBHURINE CULTURE - FRMCSEEN SEE SCANNED REPORT, NORMAL^SEE SCANNED REPORT, NORMALTBHSpecimen (Source)Anatomical Location / LateralityCollection Method / VolumeCollection TimeReceived Time04/13/2025 3:25 PM EST04/13/2025 3:44 PM EST Narrative CLINISYNC - 04/15/2025 3:27 PM EST Authorizing ProviderResult TypeResult StatusCorey Montez DOLAB BLOOD ORDERABLES Final ResultPerforming OrganizationAddressCity/State/ZIP CodePhone Number [facility] * (ABNORMAL) [facility] UA (CLEAN/CATCH) AUTOMOBILE TESTER/MICRO IF IND. (04/13/2025 3:25 PM EST) ComponentValueRef RangeTest MethodAnalysis TimePerformed AtPathologist SignatureCOLOR URINELT. YELLOWYELLOWTBHCLARITY URINECLEARCLEARTBHSPECIFIC GRAVITY URINE1.0151.005 - 1.025TBHPH URINE6.55.0 - 9.0TBHPROTEIN URINENEGATIVE NEG/TRACE mg/dLTBHGLUCOSE URINE UANEGATIVENEGATIVE mg/dLTBHBILIRUBIN URINE NEGATIVENEGATIVETBHKETONES URINE>=80(A)NEGATIVE mg/dLTBHBLOOD URINENEGATIVE NEGATIVETBHNITRITE URINENEGATIVENEGATIVETBHUROBILINOGEN URINE0.20.2 - 1.0 EU/dLTBHLEUKOCYTE ESTERASE URINESMALL(A)NEGATIVETBHURINE MICROSCOPIC INDICATED YESTBHSpecimen (Source)Anatomical Location / LateralityCollection Method / VolumeCollection TimeReceived Time04/13/2025 3:25 PM EST04/13/2025 3:44 PM EST Narrative CLINISYNC - 04/13/2025 3:52 PM EST Authorizing ProviderResult TypeResult StatusCorey Montez DOCLINISYNCFinal Result Performing OrganizationAddressCity/State/ZIP CodePhone Number [facility]INIS[facility]NC [facility] documented in this encounter Visit Diagnoses Not on filedocumented in this encounter Care Teams Team MemberRelationshipSpecialtyStart DateEnd Date Evans Casas MD [address] [facility] [place] [address] PCP - GeneralFamily Medicine11/07/23documented as of this encounter
--- OUTSIDE RECORDS SUMMARY | 2025-04-16 19:21 | XMS_ITS | Encounter Summary ---
Author Organization [facility] Address [address] [place] [address] Care Team Providers Care Director Of Ancillary Services Name Role Phone Evans Casas DO Primary Care Provider [phone] Encounter Details DateTypeDepartmentCare Team (Latest Contact Info)Mctrqmyrvmt12/10/2025bstract [facility] Neurology [address] [place] [address] [address] [place] [address] Peng Osorio MD [address] [facility] [address] [place] [address] Social History Tobacco UseTypesPacks/DayYears UsedDateSmoking Tobacco: NeverSmokeless Tobacco: NeverAlcohol UseStandard Drinks/WeekCommentsNot Currently0 (1 standard drink = 0.6 oz pure alcohol)occasionallyCommentsNoSex and Gender Information ValueDate RecordedSex Assigned at BirthNot on fileLegal FbfRvirws09/14/2017 2:04 PM EDTGender IdentityNot on fileSexual OrientationNot on filedocumented as of this encounter Plan of Treatment DateTypeDepartmentCare Team (Latest Contact Info)Imxvomgeqzk67/25/2026 1:45 PM EDTOffice Visit [facility] Neurology [address] [place] [address] [address] [place] [address] Peng Osorio MD [address] [facility] [address] [place] [address] 6 MOS FUPdocumented as of this encounter Visit Diagnoses Not on filedocumented in this encounter Care Teams Team MemberRelationshipSpecialtyStart DateEnd Date Evans Casas DO [address] [place] [address] PCP - GeneralFamily Medicine10/04/20documented as of this encounter
--- OUTSIDE RECORDS SUMMARY | 2025-04-16 19:21 | XMS_ITS | Encounter Summary ---
Author Organization [facility] Address [address] [place] [address] Care Team Providers Care Pump Press Operator Name Role Phone Evans Casas MD Primary Care Provider [phone] Encounter Details DateTypeDepartmentCare Team (Latest Contact Info)Mbzwdzoiibk63/18/2025Telephone [facility] [address] [place] [address] Wilton Herrmann DO [address] June Pickett, [facility] Social History Tobacco UseTypesPacks/DayYears UsedDateSmoking Tobacco: NeverSmokeless Tobacco: NeverAlcohol UseStandard Drinks/WeekCommentsNever0 (1 standard drink = 0.6 oz pure alcohol)PHQ-2AnswerDate RecordedPatient Health Questionnaire-2 Score0 03/03/2025Estimated Date of EjzbuudaGzpkrsraAqt46/05/2026ased on last menstrual period of 07/28/2024Sex and Gender InformationValueDate RecordedSex Assigned at BirthNot on fileLegal OeaImzabb94/15/2023 11:19 PM EDTGender IdentityNot on fileSexual OrientationNot on filedocumented as of this encounter Miscellaneous Notes * Telephone Encounter - Renate Vegas LPN - 04/16/2025 9:56 AM EST Patient called office asking if she should still go for her NST/BPP tonight at 7 and if she should continue metformin or stop this. Patient advised to continue on the medication an let [facility] know she took all meds and that continue with NST/BPP as scheduled. Patient asked if she should stay after this or go home and she was advise this was up to her on what she wanted to do. PVU documented in this encounter Plan of Treatment Not on file documented as of this encounter Visit Diagnoses Not on filedocumented in this encounter Care Teams Team MemberRelationshipSpecialtyStart DateEnd Date Evans Casas MD [address] [place] [address] PCP - GeneralFamily Medicine11/07/23documented as of this encounter
--- OUTSIDE RECORDS SUMMARY | 2025-04-16 19:21 | XMS_ITS | Encounter Summary ---
Author Organization [facility] Address [address] [place] [place] [address] Care Team Providers Care Charge Operator Name Role Phone Evans Casas MD Primary Care Provider [phone] Encounter Details DateTypeDepartmentCare Team (Latest Contact Info)Lioxofzhrkf83/10/2025linisync Result Encounter [facility] Unsolicited Wilton Herrmann, DO [address] June [place], [place] [id number] Social History Tobacco UseTypesPacks/DayYears UsedDateSmoking Tobacco: NeverSmokeless Tobacco: NeverAlcohol UseStandard Drinks/WeekCommentsNever0 (1 standard drink = 0.6 oz pure alcohol)PHQ-2AnswerDate RecordedPatient Health Questionnaire-2 Score0 03/03/2025Estimated Date of CondxfabDowwpcctGzd61/05/2026ased on last menstrual period of 07/28/2024Sex and Gender InformationValueDate RecordedSex Assigned at BirthNot on fileLegal VhbZuztpw29/15/2023 11:19 PM EDTGender IdentityNot on fileSexual OrientationNot on filedocumented as of this encounter Plan of Treatment Not on file documented as of this encounter Procedures Procedure NamePriorityDate/TimeAssociated DiagnosisCommentsORGANISM RIHKZSYQOLYXXTKqyaiml99/10/2025 1:57 PM EST STREP GP B CULTURE+MDNPCpslpak73/10/2025 1:57 PM EST documented in this encounter Results * ORGANISM IDENTIFICATION (04/08/2025 1:57 PM EST)ComponentValueRef RangeTest MethodAnalysis TimePerformed AtPathologist SignatureORGANISM IDENTIFICATION ??Organism Identification WILL FOLLOW TBHSpecimen (Source)Anatomical Location / LateralityCollection Method / Volume Collection TimeReceived Time04/08/2025 1:57 PM EST04/08/2025 8:14 PM EST Narrative [facility] - 04/14/2025 2:09 PM EST Authorizing ProviderResult TypeResult StatusCorey Montez DOLAB BLOOD ORDERABLES Final ResultPerforming OrganizationAddressCity/State/ZIP CodePhone Number CLINIS[facility] * STREP GP B CULTURE+RFLX (04/08/2025 1:57 PM EST)ComponentValueRef RangeTest MethodAnalysis TimePerformed AtPathologist SignatureSTREP GP B CULTURE+RFLX ??Strep Gp B Culture+Rflx TBHSTREP GP B CULTURE+RFLX*ABNORMAL*TBHSTREP GP B CULTURE+RFLXPositiveTBHSTREP GP B CULTURE+RFLXCenters for Disease Control and Prevention (CDC) andTBHSTREP GP B CULTURE+RFLXAmerican Congress of Obstetricians and GynecologistsTBHSTREP GP B CULTURE+RFLX(ACOG) guidelines for prevention of group BTBHSTREP GP B CULTURE+RFLXstreptococcal (GBS) disease specify co-collection ofTBHSTREP GP B CULTURE+RFLXa vaginal and rectal swab specimen to maximizeTBHSTREP GP B CULTURE+RFLXsensitivity of GBS detection. Per the CDC and ACOG,TBHSTREP GP B CULTURE+RFLXswabbing both the lower vagina and rectumTBHSTREP GP B CULTURE+RFLX substantially increases the yield of detectionTBHSTREP GP B CULTURE+RFLXcompared with sampling the vagina alone.TBHSTREP GP B CULTURE+RFLXPenicillin G, ampicillin, or cefazolin are indicatedTBHSTREP GP B CULTURE+RFLXfor intrapartum prophylaxis of GBSTBHSTREP GP B CULTURE+RFLXcolonization. Reflex susceptibility testing should beTBHSTREP GP B CULTURE+RFLXperformed prior to use of clindamycin only on GBSTBHSTREP GP B CULTURE+RFLXisolates from penicillin- allergic women who areTBHSTREP GP B CULTURE+RFLXconsidered a high risk for anaphylaxis. Treatment withTBHSTREP GP B CULTURE+RFLXvancomycin without additional testing is warranted ifTBHSTREP GP B CULTURE+RFLXresistance to clindamycin is noted.TBHSpecimen (Source)Anatomical Location / Laterality Collection Method / VolumeCollection TimeReceived Time04/08/2025 1:57 PM EST 04/08/2025 8:14 PM EST Narrative [facility] - 04/14/2025 2:09 PM EST Authorizing ProviderResult TypeResult StatusCorey Montez DOLAB BLOOD ORDERABLES Final ResultPerforming OrganizationAddressCity/State/ZIP CodePhone Number CLINISYPENDING [facility] documented in this encounter Visit Diagnoses Not on filedocumented in this encounter Care Teams Team MemberRelationshipSpecialtyStart DateEnd Date Evans Casas MD [address] [place] [address] PCP - GeneralFamily Medicine11/07/23documented as of this encounter
--- OUTSIDE RECORDS SUMMARY | 2025-04-16 19:21 | XMS_ITS | Encounter Summary ---
Author Organization [facility] Address [address] [place] [address] Care Team Providers Care Non Profit Financial Controller Name Role Phone Evans Casas MD Primary Care Provider [phone] Encounter Details DateTypeDepartmentCare Team (Latest Contact Info)Imfxvxovkei44/17/2025Telephone [facility] [address] [place] [address] Petra Houston PA [address] [place], [facility] Social History Tobacco UseTypesPacks/DayYears UsedDateSmoking Tobacco: NeverSmokeless Tobacco: NeverAlcohol UseStandard Drinks/WeekCommentsNever0 (1 standard drink = 0.6 oz pure alcohol)PHQ-2AnswerDate RecordedPatient Health Questionnaire-2 Score0 03/03/2025Estimated Date of QwgvmmctPzsebttgXzj83/05/2026Based on last menstrual period of 07/28/2024Sex and Gender InformationValueDate RecordedSex Assigned at BirthNot on fileLegal DlyAfvqlb53/15/2023 11:19 PM EDTGender IdentityNot on fileSexual OrientationNot on filedocumented as of this encounter Miscellaneous Notes * Telephone Encounter - Renate Vegas LPN - 04/15/2025 9:33 AM EST I woke up last night in a sweat with a temperature of 100.2 and 3 of my little kids are sick with fevers too, so I do not know if it is just that. But I have been having this really bad lower back pain ever since Sunday or Sunday in the middle of the night and it is just been getting worse and worse and really, really, really painful. I do not know if I should do my blood center this morning. I usually do it by 930, so if you could Call me back, my phone number is [phone], thank you. Like. Patient was called and she states that she is having some burning pain around tailbone into hip andthen into front. Feels like [place] castellanos tightening when walking and moving around. Patient statesthat was in L&D Sunday and she was 2 cm. And she did lose mucous plug and water was still intact. Spoke with provider and advised her she wants patient seen in office today and to stop Lovenox. Patient call returned she states that she does have an appointment and that she was wanting to know if in labor she was advised if these symptoms worsen head in but we would like her to come in check urine and check her and that medication being stopped is precaution and in anticipation of her delivery. Patient states that she does go in 04/17/2025 for induction and does have appointment this afternoon. PVU to come into office at appointment time or to hospital if worsen. documented in this encounter Plan of Treatment Not on file documented as of this encounter Visit Diagnoses Not on filedocumented in this encounter Care Teams Team MemberRelationshipSpecialtyStart DateEnd Date Evans Casas MD [address] [place], [place] [address]sarah [place] [address] PCP - GeneralFamily Medicine11/07/23documented as of this encounter
--- OUTSIDE RECORDS SUMMARY | 2025-04-16 19:21 | XMS_ITS | Clinical Summary ---
Author Organization [facility] [place] [address] Care Team Providers Care Closing Machine Operator Name Role Phone Adilson Gutierrez MD Primary Care Provider Allergies Active AllergyReactionsCriticalityNoted DateCommentsMilk-Related CompoundsOther (See Comments)Low07/18/2017 Crampy and gassy Medications MedicationSigDispense QuantityRefillsLast FilledStart DateEnd DateStatus aspirin 81 MG chewable tablet Take by mouth dailyActive Multiple Vitamins-Minerals (WOMENS MULTIVITAMIN PO) Take by mouth dailyActive Probiotic Product (PROBIOTIC DAILY PO) Take by mouthActive Family History Medical HistoryRelationCommentsDiabetes Mellitus IIFatherStrokeFatherseveral mini strokesHeart AttackMaternal GrandfatherMental IllnessMaternal Grandmother Spina BifidaMotherMult SclerosisPaternal AuntRelationStatusCommentsFather Maternal GrandfatherDeceasedMaternal GrandmotherDeceasedMotherPaternal Aunt Social History Tobacco UseTypesPacks/DayYears UsedDateSmoking Tobacco: NeverSmokeless Tobacco: NeverAlcohol UseStandard Drinks/WeekCommentsNo0 (1 standard drink = 0.6 oz pure alcohol)CommentsNoSex and Gender InformationValueDate RecordedSex Assigned at BirthNot on fileLegal CtlLgfekm27/27/2018 3:27 PM ESTGender Identity Not on fileSexual OrientationNot on fileOccupationIndustryJob Start DateJob End DateStay at home motherNot on fileNot on fileNot on file Last Filed Vital Signs Vital SignReadingTime TakenCommentsBlood Gxnpujpr294/6803 9:13 AM EDT Pulse--Temperature--Respiratory Rate--Oxygen Saturation--Inhaled Oxygen Concentration--Pvcvpd73.5 kg (179 lb 9.6 oz)07/18/2017 9:13 AM FHPIqzepk345.6 cm (5' 6 )07/18/2017 9:13 AM EDTBody Mass Index28.9907/18/2017 9:13 AM EDT Plan of Treatment Health MaintenanceDue DateLast DoneCommentsMMR (1 of 1 - Standard series) 1986Tetanus Diphtheria and Pertussis Vaccines (1 - Tdap)1992MenB (1 of 2 - MenB 2-Dose Series Bexsero)2001Hepatitis B (1 of 3 - 19+ 3-dose series)2004HPV (1 - 3-dose SCDM series)2012COVID-19 ( season)2024FLU (#1)12/29/2024HIBAged OutNo longer eligible based on patient's age to complete this topicHepatitis AAged OutNo longer eligible based on patient's age to complete this topicMenACWYAged OutNo longer eligible based on patient's age to complete this topicNirsevimabAged OutNo longer eligible based on patient's age to complete this topicPneumococcalAged OutNo longer eligible based on patient's age to complete this topicPolioAged OutNo longer eligible based on patient's age to complete this topicRotavirusAged OutNo longer eligible based on patient's age to complete this topic Care Teams Team MemberRelationshipSpecialtyStart DateEnd Adilson Gutierrez MD [address] [place] [phone] PCP - GeneralFamily Medicine07/19/17
--- NOTE | 2025-04-16 19:22 | US_ITS ---
The [address] [address] Patient Name: MADHU RENDON MRN: [facility]:[id number] date: 1985 Sex: F Assigned Patient Location: [facility] Current Patient Location: [facility] Accession/Order Number: [id number] Exam Date: 04/16/2025 19:26 Report Date: 04/17/2025 09:17 At the request of: MYA MASSEY DO Procedure: US OB growth CLINICAL DATA: Third trimester . ULTRASOUND OB GROWTH COMPARISON: 03/19/2025 There is a single live intrauterine gestation in cephalic presentation. There is cardiac and somatic activity with heart rate 134 bpm. The amniotic fluid index measures 15.1 cm. The following measurements were obtained: Biparietal diameter 9.0 cm 36 weeks 3 days 39% Head circumference 33.9 cm 38 weeks 6 days 63% Abdominal circumference 34.6 cm 38 weeks 3 days 88% Femur length 7.2 cm 36 weeks 4 days 30% The composite ultrasound age based on these measurements is 37 weeks 4 days +/- 2 weeks 4 days. The estimated delivery is 05/03/2025. The estimated weight is 7 lbs. 5 oz. +/- 1 pound 2 ounces (70%). US/US OB growth IMPRESSION: SINGLE LIVE INTRAUTERINE GESTATION WITH ULTRASOUND AGE OF 37 WEEKS 4 DAYS. BIOPHYSICAL PROFILE: COMPARISON: 04/09/2025 FINDINGS: TONE: 1 or more episodes of activity extension and flexion of extremity or opening and closing of the hand [Y] 2/2 GROSS BODY MOVEMENTS: 3 or more discrete body or limb movements [Y] 2/2 BREATHING MOVEMENTS: 1 or more episodes of breathing lasting at least 30 seconds [Y] 2/2 SARAHI: A single deepest vertical pocket of amniotic fluid greater than 2 cm [Y] 2/2 SARAHI: 15.1 cm Total score: 8/8 IMPRESSION: NORMAL BIOPHYSICAL PROFILE Impression dictated by: Pamela Pisano M.D. 04/17/2025 9:17 AM Dictation Location: [place] [address] Electronically authenticated by: [id number] Y Date: 04/17/2025 09:17
--- NOTE | 2025-04-16 19:22 | US_ITS ---
The [address] [address] Patient Name: MADHU RENDON MRN: [id number] date: 1985 Sex: F Assigned Patient Location: Current Patient Location: [facility] Accession/Order Number: [id number] Exam Date: 04/16/2025 19:26 Report Date: 04/17/2025 09:17 At the request of: MYA MASSEY DO Procedure: US OB growth CLINICAL DATA: Third trimester . ULTRASOUND OB GROWTH COMPARISON: 03/19/2025 There is a single live intrauterine gestation in cephalic presentation. There is cardiac and somatic activity with heart rate 134 bpm. The amniotic fluid index measures 15.1 cm. The following measurements were obtained: Biparietal diameter 9.0 cm 36 weeks 3 days 39% Head circumference 33.9 cm 38 weeks 6 days 63% Abdominal circumference 34.6 cm 38 weeks 3 days 88% Femur length 7.2 cm 36 weeks 4 days 30% The composite ultrasound age based on these measurements is 37 weeks 4 days +/- 2 weeks 4 days. The estimated delivery is 05/03/2025. The estimated weight is 7 lbs. 5 oz. +/- 1 pound 2 ounces (70%). US/US OB BPP w non-stress IMPRESSION: SINGLE LIVE INTRAUTERINE GESTATION WITH ULTRASOUND AGE OF 37 WEEKS 4 DAYS. BIOPHYSICAL PROFILE: COMPARISON: 04/09/2025 FINDINGS: TONE: 1 or more episodes of activity extension and flexion of extremity or opening and closing of the hand [Y] 2/2 GROSS BODY MOVEMENTS: 3 or more discrete body or limb movements [Y] 2/2 BREATHING MOVEMENTS: 1 or more episodes of breathing lasting at least 30 seconds [Y] 2/2 SARAHI: A single deepest vertical pocket of amniotic fluid greater than 2 cm [Y] 2/2 SARAHI: 15.1 cm Total score: 8/8 IMPRESSION: NORMAL BIOPHYSICAL PROFILE Impression dictated by: Pamela Pisano M.D. 04/17/2025 9:17 AM Dictation Location: [place] [address] Electronically authenticated by: [id number] Y Date: 04/17/2025 09:17
--- OUTSIDE RECORDS SUMMARY | 2025-04-16 19:22 | XMS_ITS | Clinical Summary ---
Author Organization [facility] Address [address] [place] [address] Care Team Providers Care Reverberatory Furnace Supervisor Name Role Phone Evans Casas MD Primary Care Provider [phone] Allergies Active AllergyReactionsCriticalityNoted DateCommentsCiprofloxacinGI intolerance 04/19/2023iprofloxacin-Fluocinolone Pf05/19/2019 Other Reaction(s): Other: See Comments Dizziness, weakness sweating Kakhzci5809/10/2017 Other Reaction(s): GI Disturbance, GI Upset Diarrhea Diarrhea Lactose Intolerance (Gi)11/15/2023 Other Reaction(s): Illness Lejjektggvk09/06/2021 Other Reaction(s): Other (See Comments) KioueTawluShh99/26/2018 seasonal Other Reaction(s): Other (See Comments) Medications MedicationSigDispense QuantityRefillsLast FilledStart DateEnd DateStatus Multiple Vitamin (Multi-Vitamin) tablet Take 1 tablet by mouth in the morning.Active levothyroxine (Synthroid) 25 MCG tablet Indications:Abnormal TSHTake 1 tablet (25 mcg) by mouth in the morning. Take before meals. 30 tablet 110//[id number]//6Active enoxaparin (Lovenox) 40 MG/0.4ML injection 1 (one) time each day at the same timeActive docusate sodium (Colace) 50 MG capsule Take 100 mg by mouth in the morning and 100 mg before bedtime.Active polyethylene glycol, PEG, 3350 (Glycolax) 17 GM/SCOOP powder Take 17 g by mouth DailyActive Alcohol Swabs (Alcohol Prep Pad) 70 % pads Indications:Second trimester ([facility]-HCC),13 weeks gestation of ([facility]),Multigravida of advanced maternal age in second trimester ([facility]), Gestational diabetes mellitus (GDM), antepartum, gestational diabetes method of control unspecified([facility]),Elevated glucose tolerance testApply 1 Pad topically Daily Use four times daily to check FSBS. 150 each 5Active Blood Glucose Monitoring Suppl (D-[employer] Glucometer) w/Device kit Indications:Second trimester ([facility]),13 weeks gestation of ([facility]),Multigravida of advanced maternal age in second trimester ([facility]), Gestational diabetes mellitus (GDM), antepartum, gestational diabetes method of control unspecified([facility]),Elevated glucose tolerance test1 kit Daily Use [...] (GDM), antepartum, gestational diabetes method of control unspecified([facility])Take 3 tablets (1,500 mg) by mouth in the evening. Take with meals Do not crush, chew, or split. 90 tablet 5Active Active Problems ProblemNoted DateDiagnosed DateH/O loss01/05/2025Multigravida of advanced maternal age in second trimester ([facility])01/05/2025Thyroid degkrez1601/05/2025 Referred otalgia of right ear11/19/2023LPRD (laryngopharyngeal reflux disease) 11/19/2023cute on chronic vesicular eczema of hands and feet11/15/2023lood pressure elevated without history of HTN11/15/2023MI 37.0-37.9, adult11/15/2023 Cold tzbxweueuop26/18/2024eviated kihqhj5111/15/2023ry mouth11/15/2023Elevated blood pressure kgbosii9911/15/2023Environmental nfdtbqrou17/18/2024H/O: rsasdczdbzeluo56/18/2024History of hvnrqe0311/15/2023History of cerebrovascular mtueblsb94/18/2024 Overview (11/15/2023): reported by pt - related to antiphospholipid syndrome History of COVID-19011/15/2023History of gestational fddzwccu73/18/2024History of kidney plpgpy6611/15/2023Hx of iron deficiency hkfrho5711/15/2023Immunization not carried out because of patient cbebqjav38/18/2024Iron qfkiaabejd04/18/2024 Irregular uterine fzjvkpny00/18/2024Morbid spsbrvc8211/15/2023Nasal polyps 11/15/2023Non-augmui2411/15/2023OSA (obstructive sleep apnea)11/15/2023aresthesia of bilateral legs11/15/2023re-/18/2024Right lower quadrant pain 4Right otitis lftmplx0311/15/2023Salivary gland ubtxdcux80/18/2024Snoring 11/15/2023bdominal pain4Acute bronchitis due to /13/2024 Jnlwltr1806/12/2023ysfunction of eustachian tube06/12/20238422Hkfbdcs37/13/2024 Ssfwpliimyqb82/13/2024Inhalation evemyj9706/12/2023Lactation problem ([facility]) 4Psychogenic uolmeqttvwpqcngl27/13/2024Suspected severe acute respiratory syndrome coronavirus 2 (SARS-CoV-2) dzlxfwrig74/13/2024Hypoglycemia 06/12/2023rimary hypercoagulable state ([facility])08/01/2022estational diabetes mellitus (GDM), antepartum ([facility])01/26/2022Genitourinary /22/2022 Muscle esttgdfdjjytj55/22/2022nticoagulant long-term use02/22/2020 Cerebrovascular accident (CVA) due to stenosis of middle cerebral artery 02/22/2020Anemia complicating childbirth ([facility])01/16/2020First degree perineal laceration during delivery ([facility])01/16/2020Acute posthemorrhagic atlbio5201/16/2020Other immediate hemorrhage ([facility])01/16/2020 Personal history of urinary (tract) rilbpyvjvw02/18/2020Single live (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)01/08/2020Pruritus, evlioutgwzn59/04/2020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)12/30/201932 weeks gestation of ([facility])11/28/2019Thrombocytopenia, nphkgiyfejx95/23/2020Other general symptoms and signs10/28/2019Urinary tract iiqgjspzm59/18/2020 Zcqjtrwzhwsg54/28/2020SVT (supraventricular tachycardia)08/26/2019 Antiphospholipid antibody syndrome ([facility])07/07/2019Other bacterial infections of unspecified site06/27/2019Less than 8 weeks gestation of ([facility]) 06/05/2019Encounter for supervision of normal , unspecified, first trimester ([facility])05/29/2019Cerebral infarction, fswlyfulwqo96/17/2020 Deficiency of other specified B group hkzothsb78/17/0275Xaxwrotqrzmp93/17/2020 Unspecified condition associated with female genital organs and menstrual cycle 05/09/2019Other specified noninflammatory disorders of wcaiup9402/21/2019Frequency of /23/2019Unspecified ovarian cyst, right side02/06/2019 Znutedfhfok93/09/2019Coagulation defect, unspecified ([facility])02/05/2019 Dizziness and xdhsajtzt14/09/2019Long term (current) use of antithrombotics/qujocywldtsei16/09/2019Other acute postprocedural pain02/03/2019 Pelvic and perineal pain02/01/2019Syncope and /04/2019Raised antibody titer09/25/2017Migraine without aura and without status migrainosus, not abhjuysagey44/16/2018Antiphospholipid antibody zphccssa03/14/2018Fatigue 12/29/2016Idiopathic progressive gvzxedqllt79/01/2017Pain in joint12/29/2016 Estimated Date of ArxysmheLyobhgatSog71/05/2026Based on last menstrual period of 07/28/2024 Encounters DateTypeDepartmentCare DgurWysxzpeapwc50/18/2025Telephone [facility] [place] [address] Mya Herrmann, DO 04/15/2025 1:50 PM ESTRoutine [facility] [place] [address] Mya Herrmann, DO Third trimester ([facility]); 37 weeks gestation of ([facility])04/15/2025bstract [facility] [place] [address] Mya Herrmann, DO 04/15/2025Telephone [facility] [place] [address] Petra Houston PA 04/13/2025External Result Encounter NOMS External Department Unsolicited Mya Herrmann, DO 5Clinisync Result Encounter [facility]OMS External Department Unsolicited Mya Herrmann, DO 04/13/2025Telephone [facility] ROBBGYJuaquin [place] [address] Mya Herrmann, DO 5Clinisync Result Encounter NOMS External Department Unsolicited Mya Herrmann, DO 04/08/2025 1:40 PM ESTRoutine [facility] [place] [address] Mya Herrmann, DO 36 weeks gestation of ([facility]); Third trimester ([facility]); Anemia complicating childbirth ([facility]); Anticoagulant long-term use; Antiphospholipid antibody positive; Antiphospholipid antibody syndrome ([facility]); Thyroid /10/2025Clinisync Result Encounter NOMS External Department Unsolicited Mya Herrmann, DO 5Bamboo flowsheet [facility] [place] [facility] [address] [place] [address] Mya Herrmann, DO 5Abstract [facility] [address] [place] [address] Mya Herrmann, DO 5Clinisync Result Encounter NOMS External Department Unsolicited Mya Herrmann, DO 03/25/2025 11:10 AM ESTRoutine [facility] [address] [place] [address] Mya Herrmann, DO Third trimester ([facility]); 34 weeks gestation of ([facility]); Anemia complicating childbirth ([facility]); Anticoagulant long-term use; Antiphospholipid antibody positive; Antiphospholipid antibody syndrome ([facility]); Thyroid rttbshp2403/25/2025linisync Result Encounter NOMS External Department Unsolicited Mya Herrmann, DO 03/25/2025amboo flowsheet [facility] [address] [place] [address] Mya Herrmann, DO 5Abstract [facility] [address] [place] [address] Mya Herrmann, DO 03/19/2025linisync Result Encounter NOMS External Department Unsolicited Mya Herrmann, DO 03/19/2025linisync Result Encounter NOM[facility] External Department Unsolicited Mya Herrmann, DO 03/13/2025linisync Result Encounter NOMS External Department Unsolicited Mya Herrmann, DO 03/10/2025 9:50 AM ESTRoutine [facility] [address] [place] [address] Mya Herrmann, DO 32 weeks gestation of ([facility]); Third trimester ([facility]); Anemia complicating childbirth ([facility]); Anticoagulant long-term use; Antiphospholipid antibody positive; Blood pressure elevated without history of HTN; Coagulation defect, unspecified ([facility]); Antiphospholipid antibody syndrome ([facility]); Thyroid disease; Multigravida of advanced maternal age in third trimester ([facility])03/10/2025 Bamboo flowsheet [facility] [place] [address] Mya Herrmann, DO 03/06/2025linisync Result Encounter NOMS External Department Unsolicited Mya Herrmann, DO 03/04/2025bstract [facility] [place] [phone] Mya Herrmann, DO 03/03/2025Patient Outreach [facility] [address] [place] [address] [place] [address] ePtra Whitmore LPN 02/27/2025linisync Result Encounter NOMS External Department Unsolicited Mya Herrmann, DO 02/23/2025 9:00 AM EDTRoutine [facility] [place] [address] Mya Herrmann, DO Third trimester ([facility]); 30 weeks gestation of ([facility])02/23/2025amboo flowsheet [facility] [place] [address] Mya Herrmann, DO 02/20/2025linisync Result Encounter [facility] External Department Unsolicited Mya Herrmann, DO 02/20/2025linisync Result Encounter [facility] External Department Unsolicited Mya Herrmann, DO 02/17/2025linisync Result Encounter [facility] External Department Unsolicited Mya Herrmann, DO 02/17/2025bstract [facility]OM[facility] [place] [address] Mya Herrmann, 02/09/2025 10:30 AM EDTRoutine [facility] [place] [facility] [address] [place] [address] Mya Herrmann, Third trimester ([facility]); 28 weeks gestation of ([facility]); Anemia complicating childbirth ([facility]); Anticoagulant long-term use; Antiphospholipid antibody positive; Blood pressure elevated without history of HTN; Coagulation defect, unspecified ([facility])02/09/2025bstract [facility] [address] [place] [address] Mya Herrmann, 02/03/2025Patient Outreach [facility] [address] [place] [address] Petra Whitmore LPN 01/21/2025Telephone [facility] [place] [facility] [address] [place] [address] Celia Keith NP 01/19/2025 9:00 AM EDTRoutine [facility] [address] [place] [address] Mya Herrmann, Second trimester ([facility]); 25 weeks gestation of ([facility]); Gestational diabetes mellitus (GDM), antepartum, gestational diabetes method of control unspecified([facility]); Anticoagulant long-term use; Antiphospholipid antibody positive; Antiphospholipid antibody syndrome ([facility])01/19/2025bstract [facility] [address] [place] [address] Mya Herrmann DO 01/15/2025Telephone [facility] [place] [facility] [address] [place] [address] Lala Hess MA from Last 3 Months Family History Medical HistoryRelationNameCommentsCerebrovascular AccidentFatherDiabetesFather Heart problemsMaternal GrandfatherMental illnessMaternal GrandmotherCancer Paternal GrandfatherDiabetesPaternal GrandfatherCancerPaternal Grandmother DiabetesPaternal GrandmotherDiabetesSisterRelationNameStatusCommentsFather Maternal GrandfatherMaternal GrandmotherPaternal GrandfatherPaternal Grandmother Sister Social History Tobacco UseTypesPacks/DayYears UsedDateSmoking Tobacco: NeverSmokeless Tobacco: Never Tobacco Cessation:Counseling Given: Not Answered Alcohol UseStandard Drinks/WeekCommentsNever0 (1 standard drink = 0.6 oz pure alcohol)PHQ-2AnswerDate RecordedPatient Health Questionnaire-2 Oyvyd50205/03/2024 Estimated Date of LrcxkkvlRjdvcrhcEfm27/05/2026ased on last menstrual period of 07/28/2024Sex and Gender InformationValueDate RecordedSex Assigned at BirthNot on fileLegal RytLlgxpl27/15/2023 11:19 PM EDTGender IdentityNot on file Sexual OrientationNot on file Last Filed Vital Signs Vital SignReadingTime TakenCommentsBlood Waynxfbv960/7404/15/2025 2:45 PM EST Pulse--Temperature--Respiratory Rate--Oxygen Saturation--Inhaled Oxygen Concentration--Esjlah00.8 kg (209 lb)04/15/2025 2:45 PM QVYTfkaxp384.6 cm (5' 6 )11/19/2023 1:48 PM EDTBody Mass Index33.7311/19/2023 1:48 PM EDT Plan of Treatment Health MaintenanceDue DateLast DoneCommentsHPV/Rmyhbl6410/22/2015COVID-19 Vaccine ( season)2024Influenza Vaccine (#1)2024ervical Cancer Cepwqoowk31/18/2025Pap Smear2Pneumococcal Vaccine: Pediatrics (0 to 5 Years) and At-Risk Patients (6 to 64 Years)Aged OutNo longer eligible based on patient's age to complete this topic Procedures Procedure NamePriorityDate/TimeAssociated DiagnosisCommentsPOCT URINALYSIS DRXJQOOJIgiobhi77/17/2025 2:45 PM EST 37 weeks gestation of ([facility]) ERWERDXLPougkeq36/15/2025 3:30 PM EST URINE CULTURE - LAWGLtjljgg75/15/2025 3:25 PM EST [facility] UA (CLEAN/CATCH) HEAT TREAT INSPECTOR/MICRO IF IND.Hxofnqe5704/13/2025 3:25 PM EST CULTURE, URINE, IGAILSSIgpelwl15/15/2025 3:25 PM EST US OB BPP W NON-AEULCD3904/09/2025 10:07 PM EST POCT URINALYSIS IQIVKBGPZjcfkop11/10/2025 2:12 PM EST 36 weeks gestation of ([facility]) Third trimester ([facility]) ORGANISM NJIRLHHVRHOUKPTpaxsie05/10/2025 1:57 PM EST STREP GP B CULTURE+TSEQLpkmbes84/10/2025 1:57 PM EST US OB BPP W NON-MXEWUN0704/02/2025 8:01 PM EST US OB BPP W NON-SWIDMK8003/25/2025 8:58 PM EST POCT URINALYSIS XRVMZKGOWuhfmeg41/26/2025 11:31 AM EST Third trimester ([facility]) US OB BPP W NON-LWSELF8103/19/2025 11:51 PM EST US OB VIHLMD5503/19/2025 11:51 PM EST US OB BPP W NON-IRQVOC7103/13/2025 7:55 AM EST POCT URINALYSIS TAAZKUDKJwmctbe55/11/2025 10:06 AM EST 32 weeks gestation of ([facility]) Third trimester ([facility]) US OB BPP W NON-GPBOOI5003/06/2025 8:10 AM EST US OB BPP W NON-QJDVFJ8702/27/2025 10:53 AM EDT POCT URINALYSIS BPCQCCNGNseagbd71/27/2025 9:38 AM EDT 30 weeks gestation of ([facility]) US OB VZZMAE0602/20/2025 8:37 AM EDT US OB BPP W NON-KNLBTZ2802/20/2025 8:37 AM EDT ALL THYROID STIM SVUMMTBBtqwldt48/21/2025 1:31 PM EDT ALL CBC WITH AUTO DJFXPhklnpq73/21/2025 1:31 PM EDT POCT URINALYSIS QTLMABPDMvrvdef08/13/2025 10:55 AM EDT 28 weeks gestation of ([facility]) POCT URINALYSIS QZCVUWAYAbhhwmx60/22/2025 9:33 AM EDT Second trimester ([facility]) PAP HYCKJKnpjgwr37/18/2022 12:00 AM EDTfrom Last 3 Months or Most Recently Relevant to Health Maintenance Results * (ABNORMAL) POCT urinalysis dipstick manually resulted (04/15/2025 2:45 PM EST) Only the most recent of7 resultswithin the time period is included. ComponentValueRef RangeTest MethodAnalysis TimePerformed AtPathologist Signature Color, UAYellowClarity, UAClearGlucose, UANegativeNegative - 2000(110) ++++ mg/dLBilirubin, UANegativeNegative - 4(70) +++ mg/dLKetones, UAPositiveNegative - 160(16) ++++ mg/dLSpec Grav, UA1.0101 - 1.03Blood, UANegativeNegative - 50 Max/mcLpH, UA6.55 - 9Protein, UANegativeNegative - 2000(20) ++++ mg/dL Urobilinogen, UA1.00.2 - 12 mg/dLLeukocytes, UANegativeNegative - 500+++ John/mcL Nitrite, UANegativeNegative - PositiveSpecimen (Source)Anatomical Location / LateralityCollection Method / VolumeCollection TimeReceived NrqqHiiwg33/17/2025 2:45 PM EST Narrative Authorizing ProviderResult TypeResult StatusCorey Montez DOPOINT OF CARE TEST ENTER/EDIT ORDERABLESFinal Result * AMNISURE (04/13/2025 3:30 PM EST)ComponentValueRef RangeTest MethodAnalysis TimePerformed AtPathologist SignatureTBH AMNISURENEGATIVENEGATIVETBHSpecimen (Source)Anatomical Location / LateralityCollection Method / VolumeCollection TimeReceived Time04/13/2025 3:30 PM EST04/13/2025 3:44 PM EST Narrative [facility] - 04/13/2025 3:58 PM EST Authorizing ProviderResult TypeResult StatusCorey Montez DOLAB BLOOD ORDERABLES Final ResultPerforming OrganizationAddressCity/State/ZIP CodePhone Number [facility] * URINE CULTURE - [facility] (04/13/2025 3:25 [...] BLOOD ORDERABLES Final ResultPerforming OrganizationAddressCity/State/ZIP CodePhone Number [facility]LLIOTTISYFLORY [facility] * (ABNORMAL) [facility] UA (CLEAN/CATCH) HEAT TREAT INSPECTOR/MICRO IF IND. (04/13/2025 3:25 PM EST) ComponentValueRef [...] DOCLINISYNCFinal Result Performing OrganizationAddressCity/State/ZIP CodePhone Number [facility] * Urine culture (04/13/2025 3:25 PM EST)ComponentValueRef RangeTest Method Analysis TimePerformed AtPathologist SignatureFR NOTE?20,000 colonies/ml mixed ?bacterial skin contaminants ?2 Days 04/15/2025 12:13 PM [facility] CtrSpecimen (Source)Anatomical Location / LateralityCollection Method / VolumeCollection TimeReceived Time Clean-Voided Midstream (Clean Void Midstream)04/13/2025 3:25 PM EST04/13/2025 8:54 PM EST Narrative [facility] - 04/15/2025 12:13 PM EST Diagnosis: VAGINAL FLUID, LOWER BACK PAIN Comment: Authorizing ProviderResult TypeResult StatusCorey Montez DOLAB MICROBIOLOGY - GENERAL ORDERABLESFinal ResultPerforming OrganizationAddressCity/State/ZIP Code Phone Number [facility] [address] [place] [place] [address], [facility] [address] [place] [place] [address] * OB BPP W NON-STRESS (04/09/2025 10:07 PM EST) Only the most recent of8 resultswithin the time period is included. Anatomical RegionLateralityModalityOtherSpecimen (Source)Anatomical Location / LateralityCollection Method / VolumeCollection TimeReceived Time04/09/2025 10:07 PM EST Narrative 04/09/2025 10:10 PM EST [facility] ?[address] ? [place] [address] ? Ultrasound Report ? Signed ? Patient: JUSTICE,MADHU S ?MR#: [id number] ?? : 1985 ?Acct:[id number] ?? Age/Sex: 39 / F ?ADM Date: 04/09/25 ?? Loc: US ? Attending Dr: Mya Herrmann D.O. ? Ordering Physician: Mya Herrmann D.O. ?? Date of Service: 04/09/25 ?? Procedure(s): US OB BPP w non-stress ?? Accession Number(s): [id number] ? cc: Mya Herrmann D.O.; Physician,Non-Staff M.D. ? [facility] ? [address] ? [place] [address] ? Patient Name: ?? MADHU RENDON ? MRN: [facility]:[id number] ? date: 1985 ?Sex: F ?? Assigned Patient Location: [facility] ?? Current Patient Location: ? Accession/Order Number: [id number] ?? Exam Date: 04/09/2025 ??19:15 ?Report Date: 04/09/2025 ??22:07 ? At the request of: ?? MYA ??MONTEZ ??DO ? Procedure: ??US OB BPP w non-stress ? Ultrasound biophysical profile ? INDICATION: Third trimester ? COMPARISON: 04/02/2025 ? FINDINGS AND IMPRESSION: Fetus in cephalic presentation. ?? heart rate 167 ?? beats per minutes. ??SARAHI measuring 10.9 cm. ??Biophysical profile 12/05. ? Impression dictated by: Mert Estrada M.D. ??04/09/2025 10:07 PM ? Dictation Location: RADIO-PC-29 ? Electronically authenticated by: [id number] ??Y ?? Date: 04/09/2025 ??22:07 ? Dictated By: ?Mert Estrada M.D. ? Signed By: ?04/09/25 2210 ? DD/ ? TD/TT: ? Piano Regulator: Procedure Note Radiology, Radiologist, MD - 04/09/2025 [place] [address] Ultrasound Report Signed Patient: MADHU RENDON SMR#: [id number] : 1985Acct:[id number] Age/Sex: 39 / FADM Date: 04/09/25 Loc: US Attending Dr: Mya Herrmann D.O. Ordering Physician: Mya Herrmann D.O. Date of Service: 04/09/25 Procedure(s): US OB BPP w non-stress Accession Number(s): [id number] cc: Mya Herrmann D.O.; Physician,Non-Staff Tamia The [address] [address] Patient Name: MADHU RENDON MRN: [facility]:[id number] date: 1985 Sex: F Assigned Patient Location: [facility] Current Patient Location: Accession/Order Number: [id number] Exam Date: 04/09/2025 19:15 Report Date: 04/09/2025 22:07 At the request of: MYA HERRMANN DO Procedure: US OB BPP w non-stress Ultrasound biophysical profile INDICATION: Third trimester COMPARISON: 04/02/2025 FINDINGS AND IMPRESSION: Fetus in cephalic presentation. heart zrte119 beats per minutes. SARAHI measuring 10.9 cm. Biophysical profile 12/05. Impression dictated by: Mert Estrada M.D. 04/09/2025 10:07 PM Dictation Location: [place] [address] Electronically authenticated by: [id number] Y Date: 2:07 Dictated By: Mert Estrada M.D. Signed By:04/09/252209 DD/ 06 TD/TT: Piano Regulator: Authorizing ProviderResult TypeResult StatusCorey Montez DOCLINISYNC IMAGINGFinal Result * ORGANISM IDENTIFICATION (04/08/2025 1:57 PM EST)ComponentValueRef [...] BLOOD ORDERABLES Final ResultPerforming OrganizationAddressCity/State/ZIP CodePhone Number [facility] * US OB GROWTH (03/19/2025 11:51 PM EST) Only the most recent of2 resultswithin the time period is included. Anatomical RegionLateralityModalityOtherSpecimen (Source)Anatomical Location / LateralityCollection Method / VolumeCollection TimeReceived Time03/19/2025 11:51 PM EST Narrative 03/19/2025 11:53 PM EST [facility] ?[address] ? [place] [address] ? Ultrasound Report ? Signed ? Patient: MADHU RENDON ?MR#: [id number] ?? : 1985 ?Acct:[id number] ?? Age/Sex: 39 / F ?ADM Date: 03/19/25 ?? Loc: US ? Attending Dr: Mya Herrmann D.O. ? Ordering Physician: Mya Herrmann D.O. ?? Date of Service: 03/19/25 ?? Procedure(s): US OB growth ?? Accession Number(s): [id number] ? cc: Mya Herrmann D.O.; Physician,Non-Staff M.D. ? [facility] ? [address] ? [place] [address] ? Patient Name: ?? MADHU RENDON ? MRN: [facility]:[id number] ? date: 1985 ?Sex: F ?? Assigned Patient Location: US ?? Current Patient Location: ? Accession/Order Number: [id number] ?? Exam Date: 03/19/2025 ??19:20 ?Report Date: [...] M.D. ??03/19/2025 11:51 PM ? Dictation Location: [facility] ? Electronically authenticated by: [id number] ??Y ?? Date: 03/19/2025 ??23:51 ? Dictated By: ?Robert Beltrán D.O. ? Signed By: ?03/19/25 2353 ? DD/ 2351 ? TD/TT: ? Piano Regulator: Procedure Note Radiology, Radiologist, MD - 03/19/[address] [address] Ultrasound Report Signed Patient: MADHU RENDON [facility]#: [id number] : 1985Acct:[id number] Age/Sex: 39 / FADM Date: 03/19/25 Loc: US Attending Dr: Mya Herrmann D.O. Ordering Physician: Mya Herrmann D.O. Date of Service: 03/19/25 Procedure(s): US OB growth Accession Number(s): [id number] cc: Mya Herrmann D.O.; Physician,Non-Staff Tamia The [place] [address] Patient Name: MADHU RENDON MRN: [facility]:[id number] date: 1985 Sex: F Assigned Patient Location: Current Patient Location: Accession/Order Number: [id number] Exam Date: 03/19/2025 19:20 Report Date: 03/19/2025 [...] Beltrán M.D. 03/19/2025 11:51 PM Dictation Location: [place] [address] Electronically authenticated by: [id number] Y Date: 3:51 Dictated By: Robert Beltrán D.O. Signed By:03/19/252352 DD/ 50 TD/TT: Piano Regulator: Authorizing ProviderResult TypeResult StatusCorey Montez DOCLINISYNC IMAGINGFinal Result * ALL THYROID STIM HORMONE (02/17/2025 1:31 PM EDT)ComponentValueRef RangeTest MethodAnalysis TimePerformed AtPathologist SignatureTHYROID STIMULATING HORMONE1.7450.358 - 3.740 uIU/mLTBHSpecimen (Source)Anatomical Location / LateralityCollection Method / VolumeCollection TimeReceived Time02/17/2025 1:31 PM EDT1 1:36 PM EDT Narrative [facility]IN[facility] - 02/17/2025 2:40 PM EDT Authorizing ProviderResult TypeResult StatusCorey Montez DOCLINISYNCFinal Result Performing OrganizationAddressCity/State/ZIP CodePhone Number [facility] * (ABNORMAL) ALL CBC WITH AUTO DIFF (02/17/2025 1:31 PM EDT)ComponentValueRef RangeTest MethodAnalysis TimePerformed AtPathologist SignatureTBH WBC9.64.0 - 11.0 10 3/uLTBHTBH RBC3.82(L)4.20 - 5.40 10 6/uLTBHTBH HGB12.112.0 - 16.0 g/dL TBHTBH HCT34.6(L)36.0 - 48.0 %TBHTBH MCV90.681.0 - 99.0 fLTBHTBH MCH31.726.7 - 34.0 pgTBHTBH MCHC35.029.9 - 35.2 g/dLTBHTBH RDW13.111.0 - 15.0 %TBHTBH QXN998 150 - 450 10 3/uLTBHTBH MPV9.79.5 - [...] Maintenance Insurance Care Teams Team MemberRelationshipSpecialtyStart DateEnd Evans Casas MD [address] [place] [address] PCP - GeneralFami Medicine11/07/23
--- OUTSIDE RECORDS SUMMARY | 2025-04-16 19:22 | XMS_ITS | Encounter Summary ---
Author Organization [facility] tem Address [facility] [address] [place] [address] Care Team Providers Care Kettle Loader Name Role Phone Evans Casas DO Primary Care Provider [phone] Encounter Details DateTypeDepartmentCare Team (Latest Contact Info)Cxmbcctusex27/09/2025Travel Social History Tobacco UseTypesPacks/DayYears UsedDateSmoking Tobacco: NeverSmokeless Tobacco: NeverAlcohol UseStandard Drinks/WeekCommentsNot Currently0 (1 standard drink = 0.6 oz pure alcohol)ChildcareAnswerDate WrmwmvojLrvpceqouWjpjalp65/31/2019 EmploymentAnswerDate SaksdjnaCswhdnyhjjFrheegh52/31/2019Hunger ScreeningAnswer Date RecordedWithin the past 12 months we worried whether our food would run out before we got money to buy more.Never True01/01/2025Within the past 12 months the food we bought just didn't last and we didn't have money to get more.Never True01/01/2025Purpose - LifeAnswerDate RecordedPurpose and direction in life Wcppekw58/11/2021Estimated Date of MdoingvpGstnbyypIzg28/05/2026Based on last menstrual period of 07/28/2024Sex and Gender InformationValueDate Recorded Sex Assigned at BirthNot on fileLegal DzwCdueaa39/31/2019 12:25 PM EDTGender IdentityNot on fileSexual OrientationNot on filedocumented as of this encounter Plan of Treatment Not on file documented as of this encounter Visit Diagnoses Not on filedocumented in this encounter Care Teams Team MemberRelationshipSpecialtyStart DateEnd Date Evans Casas DO PCP - GeneralFamily Medicine07/07/19documented as of this encounter
--- OUTSIDE RECORDS SUMMARY | 2025-04-16 19:22 | XMS_ITS | Encounter Summary ---
Author Organization [facility] Address [address] [place] [address] Care Team Providers Care Terrazzo Finisher Helper Name Role Phone Evans Casas MD Primary Care Provider [phone] Encounter Details DateTypeDepartmentCare Team (Latest Contact Info)Ximcfhmvnyn66/04/2025linisync Result Encounter [facility] External Department Unsolicited Mya Herrmann, DO [address] [place], [place] [id number] Social History Tobacco UseTypesPacks/DayYears UsedDateSmoking Tobacco: NeverSmokeless Tobacco: NeverAlcohol UseStandard Drinks/WeekCommentsNever0 (1 standard drink = 0.6 oz pure alcohol)PHQ-2AnswerDate RecordedPatient Health Questionnaire-2 Score0 03/03/2025Estimated Date of CdfpvbbhJspqqnuhVkn55/05/2026ased on last menstrual period of 07/28/2024Sex and Gender InformationValueDate RecordedSex Assigned at BirthNot on fileLegal LmpEswfxs04/15/2023 11:19 PM EDTGender IdentityNot on fileSexual OrientationNot on filedocumented as of this encounter Plan of Treatment Not on file documented as of this encounter Procedures Procedure NamePriorityDate/TimeAssociated DiagnosisCommentsUS OB BPP W NON-EDLHQF6204/02/2025 8:01 PM EST documented in this encounter Results * US OB BPP W NON-STRESS (04/02/2025 8:01 PM EST)Anatomical Region LateralityModalityOtherSpecimen (Source)Anatomical Location / Laterality Collection Method / VolumeCollection TimeReceived Time04/02/2025 8:01 PM EST Narrative 04/02/2025 8:04 PM EST The [facility] ?[address] ? [place] [address] ? Ultrasound Report ? Signed ? Patient: JUSTICE,SANNA S ?MR#: [id number] ?? : 1985 ?Acct:[id number] ?? Age/Sex: 39 / F ?ADM Date: 04/02/25 ?? Loc: [facility] ??250-1 ? Attending Dr: Mya Herrmann D.O. ? Ordering Physician: Mya Herrmann D.O. ?? Date of Service: 04/02/25 ?? Procedure(s): US OB BPP w non-stress ?? Accession Number(s): [id number] ? cc: Mya Herrmann D.O.; Physician,Non-Staff Tamia ? The [facility] ? [address] ? [place] [address] ? Patient Name: ?? SANNA RENDON ? MRN: [facility]:[id number] ? date: 1985 ?Sex: F ?? Assigned Patient Location: [facility] ?? Current Patient Location: [facility] ?? Accession/Order Number: [id number] ?? Exam Date: 04/02/2025 ??19:15 ?Report Date: [...] Dictation Location: [facility]-29 ? Electronically authenticated by: [id number] ??Y ?? Date: 04/02/2025 ??20:01 ? Dictated By: ?Mert Estrada M.D. ? Signed By: ?04/02/252003 ? DD/ 00 ? TD/TT: ? Relationship Counselor: Procedure Note Radiology, Radiologist, MD - 04/02/[address] [address] Ultrasound Report Signed Patient: SANNA RENDON SMR#: [id number] : 1985Acct:[id number] Age/Sex: 39 / FADM Date: 04/02/25 Loc: [facility] 250-[address]: Mya Herrmann D.O. Ordering Physician: Mya Herrmann D.O. Date of Service: 04/02/25 Procedure(s): US OB BPP w non-stress Accession Number(s): [id number] cc: Mya Herrmann D.O.; Physician,Non-Staff Tamia The [address] [address] Patient Name: SANNA RENDON MRN: [id number] date: 1985 Sex: F Assigned Patient Location: [facility] Current Patient Location: [facility] Accession/Order Number: [id number] Exam Date: 04/02/2025 19:15 Report Date: 04/02/2025 20:01 At the request of: MYA HERRMANN DO Procedure: US OB BPP w non-stress Ultrasound biophysical profile INDICATION: Gestational diabetes COMPARISON: 03/25/2025 FINDINGS AND IMPRESSION: Fetus in breech presentation. heart masm763 beats per minutes. SARAHI measuring 14.1 cm. Biophysical profile 12/05. Impression dictated by: Mert Estrada M.D. 04/02/2025 8:01 PM Dictation Location: [place] [address] Electronically authenticated by: [id number] Y Date: 0:01 Dictated By: Mert Estrada M.D. Signed By:04/02/252003 DD/ 00 TD/TT: Relationship Counselor: Authorizing ProviderResult TypeResult StatusCorecarmen Herrmann DOCLINISYNC IMAGINGFinal Result documented in this encounter Visit Diagnoses Not on filedocumented in this encounter Care Teams Team MemberRelationshipSpecialtyStart DateEnd Date Evans Casas MD [address] [place] [address] [place] [address] [phone] (work) [facility] - [facility]11/07/23documented as of this encounter
--- OUTSIDE RECORDS SUMMARY | 2025-04-16 19:22 | XMS_ITS | Encounter Summary ---
Author Organization [facility] Address [address] [place] [address] Care Team Providers Care Care Team Assistant Name Role Phone Evans Casas MD Primary Care Provider [phone] Encounter Details DateTypeDepartmentCare Team (Latest Contact Info)Tjdqlyqrcxd17/10/2025amboo flowsheet [facility] [address] [address] Wilton Herrmann DO [address] [place], [place] [address] Social History Tobacco UseTypesPacks/DayYears UsedDateSmoking Tobacco: NeverSmokeless Tobacco: NeverAlcohol UseStandard Drinks/WeekCommentsNever0 (1 standard drink = 0.6 oz pure alcohol)PHQ-2AnswerDate RecordedPatient Health Questionnaire-2 Score0 03/03/2025Estimated Date of RhdtzbbtBkubtfkrEar65/05/2026Based on last menstrual period of 07/28/2024Sex and Gender InformationValueDate RecordedSex Assigned at BirthNot on fileLegal CxrGpvmhl61/15/2023 11:19 PM EDTGender IdentityNot on fileSexual OrientationNot on filedocumented as of this encounter Plan of Treatment Not on file documented as of this encounter Visit Diagnoses Not on filedocumented in this encounter Care Teams Team MemberRelationshipSpecialtyStart DateEnd Date Evans Casas MD [address] [place] [address] PCP - GeneralFamily Medicine11/07/23documented as of this encounter
--- OUTSIDE RECORDS SUMMARY | 2025-04-16 19:22 | XMS_ITS | Encounter Summary ---
Author Organization [facility] Address [address] [place] [address] Care Team Providers Care Manager Financial Planning Name Role Phone Evans Casas MD Primary Care Provider [phone] Encounter Details DateTypeDepartmentCare Team (Latest Contact Info)Gsussofcxwo67/15/2025Telephone [facility] [address] [place] [address] Wilton Herrmann DO [address], [facility] Social History Tobacco UseTypesPacks/DayYears UsedDateSmoking Tobacco: NeverSmokeless Tobacco: NeverAlcohol UseStandard Drinks/WeekCommentsNever0 (1 standard drink = 0.6 oz pure alcohol)PHQ-2AnswerDate RecordedPatient Health Questionnaire-2 Score0 03/03/2025Estimated Date of MeihdcwkDdtizsppVkh54/05/2026ased on last menstrual period of 07/28/2024Sex and Gender InformationValueDate RecordedSex Assigned at BirthNot on fileLegal GmiLfazsq55/15/2023 11:19 PM EDTGender IdentityNot on fileSexual OrientationNot on filedocumented as of this encounter Miscellaneous Notes * Telephone Encounter - Renate Vegas LPN - 04/13/2025 12:22 PM EST Perry, this is Sanna oliveros I think my water might be breaking. I have a bunch of mucus. And then I changed my liner, my panny liner, and then it got some yellowish flattery stuff on it and it felt like it kind of came out marginally. I do not see any blood or anything, but I Feel pressure like it mightcontinue. Um, if you could call me back. My phone number is [phone]. Thank you, ashleye. Patient not sure it is not continuing and looks like a big glob of mucous and panty liner changed and a lot of pressure and yellowish fluid and more pressure and when water broke with last it was heavier and not sure if this is what is going to happen and she is feeling pressure but no contractions. Patient was advised to go to [facility]. Called talked to Yesi and she states that patient did call there and she was advised to call office but that we would probably have her go over. documented in this encounter Plan of Treatment Not on file documented as of this encounter Visit Diagnoses Not on filedocumented in this encounter Care Teams Team MemberRelationshipSpecialtyStart DateEnd Date Evans Casas MD [address] [place] [address] PCP - GeneralFamily Medicine11/07/23documented as of this encounter
--- OUTSIDE RECORDS SUMMARY | 2025-04-16 19:22 | XMS_ITS | Clinical Summary ---
Author Organization [facility] Address [address] [facility], [address] [place] [address] Care Team Providers Care Immunohematologist Name Role Phone Evans Casas DO Primary Care Provider [phone] Allergies Active AllergyReactionsCriticalityNoted DateCommentsCiprofloxacinOther (See Comments)06/19/2019Ciprofloxacin-Fluocinolone PfOther [...] elevated without history of HTN12/11/2023ry mouth 12/11/2023Environmental rhkqwtxog40/13/2024H/O: phssyeizhshixf86/13/2024History of uojtyl8312/11/2023History of gestational hhfqbdlo06/13/2024History of kidney tvcyvd4612/11/2023Hx of iron deficiency vllzqv3112/11/2023Immunization not carried out because of patient oofxqchj95/13/2024Morbid ifwyzkm0512/11/2023Non-smoker 12/11/2023OSA (obstructive sleep apnea)12/11/2023ight otitis ehrwnwo4312/11/2023 Abdominal pain06/12/2023cute bronchitis due to /13/2024nxiety 06/12/2023ysfunction of eustachian tube06/12/20230658Jbsowet01/13/2024Hematochezia 06/12/2023History of severe acute respiratory syndrome coronavirus 2 (SARS-CoV-2) ddzyqrn6306/12/20236251Qyflhbokzngm76/13/2024Inhalation yxpjjw0706/12/2023 xngqpiw6106/12/2023sychogenic ejtdawylnllxnhxi90/13/2024Suspected severe acute respiratory syndrome coronavirus 2 (SARS-CoV-2) ehilrngof60/13/2024 Primary hypercoagulable state08/01/2022estational diabetes mellitus in , unspecified ubmbkjt7601/26/2022Genitourinary ggenwkyj36/22/2022Muscle favehbhamlsdm28/22/2022TIA (transient ischemic attack)06/16/2020erebrovascular accident (CVA) due to stenosis of middle cerebral ufnyrx4402/22/2020Anticoagulant long-term use02/22/2020Acute posthemorrhagic evyhqn7201/16/202039 weeks gestation of ebafmhiny82/18/2020Anemia complicating xuujqxmpxc05/18/2020Endocrine, nutritional and metabolic diseases complicating pgvvxfpufv02/18/2020First degree perineal laceration during pihxlnui36/18/2020Other immediate xxaankjjyq05/18/2020Personal history of transient ischemic attack (TIA), and cerebral infarction without residual /18/2020Personal history of urinary (tract) /18/2020Single live birth01/15/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01/08/202038 weeks gestation of wjtadhgid38/09/2020Pruritus, pgtbxmdyjbd97/04/202037 weeks gestation of fbrumymob18/04/506630 weeks gestation of sthrwpefz63/01/2020Other speech and language deficits following cerebral ogelmqejck90/01/2020Other diseases of the blood and blood-forming organs and certain disorders involving the immune mech anism complicating bpksnqwtaj00/25/891377 weeks gestation of lxbsforch28/24/2020 34 weeks gestation of nylrmicdy40/18/974049 weeks gestation of 12/10/201932 weeks gestation of hcadoidqs70/31/2020Thrombocytopenia, unspecified 11/20/2019Other general symptoms and signs10/28/2019Urinary tract infection, site not /18/6204Zwvoznppbfrs09/28/2020SVT (supraventricular tachycardia)08/26/2019Antiphospholipid antibody cooanhgz73/09/2020Other bacterial infections of unspecified site06/27/2019Less than 8 weeks gestation of fzdonrvup29/06/2020Encounter for supervision of normal , unspecified, first /30/7478Vzhzxrfbjcum76/17/2020Cerebral infarction, unspecified 05/16/2019Paresthesia of skin05/16/2019Deficiency of other specified B group zgqygquj89/17/2020Hypothyroidism, gexdxuukfce57/17/2020Unspecified condition associated with female genital organs and menstrual cycle05/09/2019Vomiting of , csvuyfjvzeq12/06/2020Other specified noninflammatory disorders of ufdwst1002/21/2019Frequency of sphrfkhhyrt03/23/2019Unspecified ovarian cyst, right side02/06/2019Coagulation defect, bfjhtguyfce30/09/2019Cervicalgia 02/05/2019Long term (current) use of antithrombotics/dbcdlvoxymzmj26/09/2019 Dizziness and axcjbunzu87/09/2019Other acute postprocedural pain02/03/2019Pelvic and perineal pain02/01/2019Syncope and bmfxhiti82/04/2019Anticardiolipin antibody eprvryle36/29/2018Migraine without aura and without status migrainosus, not rzwlsrelnqi40/16/2018Antiphospholipid antibody /14/2018Pain in joint12/29/20167297Igewzew81/01/2017Idiopathic progressive odzlgoqims52/01/2017 Resolved Problems ProblemNoted DateDiagnosed DateResolved WunoAqtlz01/ Encounters DateTypeDepartmentCare VxcbKkddckeevyh02/10/2025bstract [facility] [address] [place] [address] [address] [place] [address] Peng Osorio MD 01/21/2025 2:30 PM EDTOffice Visit [facility] [address] [place] [address] [address] [place] [address] Peng Osorio MD Antiphospholipid antibody syndrome (Primary [...] InformationValueDate RecordedSex Assigned at BirthNot on fileLegal AwdVbrbse03/14/2017 2:04 PM EDT Gender IdentityNot on fileSexual OrientationNot on file Last Filed Vital Signs Vital SignReadingTime TakenCommentsBlood Vtiagwyk225/6409 2:40 PM EDT Dwixp0504 2:40 PM YSPUnptvwyfmlr29.2 ??C (97.2 ??F)02/09/2022 11:22 AM EDTRespiratory Rstk0734 11:22 AM EDTOxygen Uopdusmeda01%10/04/2020 2:01 PM EDTInhaled Oxygen Concentration--Sylrao15.8 kg (209 lb)01/21/2025 2:40 PM EDT Qcfkcz198.6 cm (5' 6 )02/09/2022 11:22 AM EDTBody Mass Index33.7302/09/2022 11:22 AM EDT Plan of Treatment DateTypeDepartmentCare Team (Latest Contact Info)Xetodgjfoxo39/25/2026 1:45 PM EDTOffice Visit [facility] [address] [place] [address] Peng Osorio MD [address] [place], [place] [address] [place] [address] 6 MOS FUPHealth MaintenanceDue DateLast DoneCommentsDepression Toxlyd5010/21/1997 Varicella vaccine (1 of 2 - 13+ 2-dose series)1998Hepatitis C screen 10/22/2003Hepatitis B vaccine (1 of 3 - 19+ 3-dose series)2004Pap smear 2006Cervical cancer hgsohe6210/22/2015HPV (without or with Pap)10/22/2015 DTaP/Tdap/Td vaccine (2 - Td or Tdap)Flu vaccine (#1) 11/28/2024OVID-19 Vaccine ( - season)2024HIV screenCompleted 12/29/2016HPV vaccine (No Doses Required)CompletedHepatitis [...] Procedure NamePriorityDate/TimeAssociated DiagnosisCommentsHIV-1,-2 W/REFLEX TO HIV-1 WESTERN UHYMWtzgtol48/01/2017 11:49 AM EDT Arthralgia, unspecified joint Fatigue, unspecified type Sensation disorder from Last 3 Months or Most Recently Relevant to Health Maintenance Results * Hiv-1,-2 W/Reflex To Hiv-1 Western Blot (12/29/2016 11:49 AM EDT)Component ValueRef RangeTest MethodAnalysis TimePerformed AtPathologist Signature HIV-1/HIV-2 WxEysxrxswFmboqlmr72/03/2017 12:03 AM [facility]TMER[facility] Comment: Based on the non-reactive anti-HIV (BRENDEN) screen, the HIV Western blot is not indicated and therefore not performed. INTERPRETIVE INFORMATION: HIV-1,-2 w/Reflex to HIV-1 Western Blot This assay should not be used for blood donor screening, associated re-entry protocols, or for screening Human Cells, Tissues and Cellular and Tissue-Based Products (HCT/P). Performed by [employer], [address] [place] [id number] [email or web address], Zhang Bledsoe MD - Lab. Director Specimen (Source)Anatomical Location / LateralityCollection Method / Volume Collection TimeReceived TimeBLOOD SPECIMEN / Qgsrxrx3212/29/2016 11:49 AM EDT 12/29/2016 1:50 PM EDT Narrative Authorizing ProviderResult TypeResult StatusRita Cecily Monroe MDHEMATOLOGY ORDERABLES Final ResultPerforming OrganizationAddressCity/State/ZIP CodePhone Number [facility] [address] [place], [place] [address] [phone] from Last 3 Months or Most Recently Relevant to Health Maintenance Insurance Care Teams Team MemberRelationshipSpecialtyStart DateEnd Date Evans Casas DO [facility] [place] [address] [facility]10/04/20
--- OUTSIDE RECORDS SUMMARY | 2025-04-16 19:22 | XMS_ITS | Clinical Summary ---
Author Organization [facility] Address [address] [place] [address] Phone Care Team Providers Care J2Ee Java Developer Name Role Phone Unavailable Primary Care Provider Unavailabl e Social History Tobacco UseTypesPacks/DayYears UsedDateSmoking Tobacco: Never Assessed CommentsUnknownSex and Gender InformationValueDate RecordedSex Assigned at Not on fileLegal UktZofdaw43/26/2022 6:11 PM ESTGender IdentityNot on fileSexual OrientationNot on file Plan of Treatment Not on file
--- OUTSIDE RECORDS SUMMARY | 2025-04-16 19:22 | XMS_ITS | Clinical Summary ---
Author Organization [facility] Address [address] [place] [address] Care Team Providers Care Pain Management Physician Name Role Phone Jonny Wilcox MD Unavailable [phone] Cosmo Elliott MD Unavailable [phone] Davida Restrepo RN Unavailable [phone] Evans Casas DO Primary Care Provider [phone] Allergies Active AllergyReactionsCriticalityNoted DateCommentsCiprofloxacinOther: See Comments,Vkrttlv6705/19/2019 Dizziness, weakness sweating Ciprofloxacin-FluocinoloneOther: See Dnmbqqxl84/20/2020 Dizziness, weakness sweating LactalbuminUnknown,GI HvhxaHkf32/26/2018 Crampy and gassy LactoseGI Upset09/10/2017 Diarrhea MilkOther: See SkrrmfldBxd23/26/2018 Crampy and gassy Diarrhea Other reaction(s): GI Upset Crampy and gassy Milk Containing Products (Dairy)Other: See LihpuqshFok71/26/2018 Crampy and gassy Diarrhea Other reaction(s): GI Upset Crampy and gassy Seasonal AllergiesGI Upset,Other: See Bxhxgfit04/06/2021 Medications MedicationSigDispense QuantityRefillsLast FilledStart DateEnd DateStatus multivitamin [...] MEAL(S)Active Active Problems ProblemNoted DateDiagnosed DateAntiphospholipid antibody adxkgeuh78/29/2025 Vitamin D xbaamdeayt56/29/2025Primary hypercoagulable state08/01/2022VA, old, speech/language pjsktry8008/01/2022Iron deficiency anemia secondary to blood loss (chronic)03/27/2022Iron deficiency anemia of vxwueobxv10/28/2022nti-cardiolipin antibody cgnmjubo86/29/2018Migraine with aura and without status migrainosus, not hjsirvwabtw36/16/2018Antiphospholipid antibody ujyikwdt50/14/2018Fatigue 12/29/2016Pain in joint12/29/2016Estimated Date of DeliveryCommentsYes 07/28/2024 Encounters DateTypeDepartmentCare JtdrDlrahsquwnm00/05/2025 9:40 AM ESTVisit (SP) Office Hematology/Oncology [address] [place] [address] [place] [address] Salvador Dos Santos MD Antiphospholipid antibody positive (Primary Dx); Iron deficiency anemia secondary to blood loss (chronic); Primary hypercoagulable state (HCC); CVA, old, speech/language deficit; Gestational diabetes mellitus (GDM) in third trimester, gestational diabetes method of control unspecified (HCC); History of hemorrhage; Other vitamin B12 deficiency anemia; Diet controlled gestational diabetes mellitus (GDM) in third trimester (HCC); Antiphospholipid syndrome (HCC); residential (current) use of anticoagulants; History of CVA (cerebrovascular accident) without residual deficits; Encounter for supervision of high risk in third trimester, antepartum (HCC)04/03/20254975Omqjgh43/02/2025Telephone [facility] [address] [place] [address] Salvador Dos Santos MD 03/02/2025 11:30 AM ESTVisit (SP) Office Hematology/Oncology [address] [place] [address] [place] [address] 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 APRN.SOFTLINES SUPERVISOR Antiphospholipid antibody positive (Primary Dx); Iron deficiency anemia secondary to blood loss (chronic); Vitamin D deficiency; Primary hypercoagulable state (HCC); CVA, old, speech/language deficit; Gestational diabetes mellitus (GDM) in third trimester, gestational diabetes method of control unspecified (HCC); History of hemorrhage; Anemia complicating , third trimester (HCC)03/02/20252084Gnjhyf54/02/2025 Telephone Hematology/Oncology [address] [place] [address] [place] [address] Rachael Johnson RN Lkruihj1501/26/2025Telephone Hematology/Oncology [address] [place] [address] [place] [address] Rachael Johnson, MARSHA from Last 3 Months [...] drink = 0.6 oz pure alcohol)PHQ-2AnswerDate RecordedPHQ-2 cxviq1434Area Deprivation Index AnswerDate RecordedNational Score (1-100), lower number is lower risk58 09/28/2022State Score (1-10), lower number is lower kwuj4973Data from: https://www.neighborhoodatlas.medicine.[facility].edu/. Last address used for [address]Estimated Date of DeliveryCommentsYes 07/28/2024Sex and Gender InformationValueDate RecordedSex Assigned at BirthNot on fileLegal VwkVcpgtg72/29/2018 10:06 AM ESTGender IdentityNot on fileSexual OrientationNot on fileOccupationIndustryJob Start DateJob End Datestay at home momNot on fileNot on fileNot on file Last Filed Vital Signs Vital SignReadingTime TakenCommentsBlood Thijrsou379/7404/03/2025 9:24 AM EST Oyooj564304/03/2025 9:24 AM VWXWskjgntfltv85.5 ??C (97.7 ??F)04/03/2025 9:24 AM ESTRespiratory Uhla939106/04/2024 9:24 AM ESTOxygen Stixdtpwxn69%04/03/2025 9:24 AM ESTInhaled Oxygen Concentration--Vnicpl52 kg (211 lb 10.3 oz)04/03/2025 9:24 AM OHQUrsmyg936.7 cm (5' 6.02 )12/23/2024 11:34 AM EDTBody Mass Index34.14 12/23/2024 11:34 AM EDT Plan of Treatment DateTypeDepartmentCare Team (Latest Contact Info)Eaqfuqxsiuc43/09/2026 9:30 AM ESTOffice Visit [facility] [address] [place] [address] lab in 5 weeks05/13/2025 5:00 PM [facility] Hematology/Oncology [address] [place] [address] Salvador Dos Santos MD [address] [place] [address] VV for lab resultsHealth MaintenanceDue DateLast DoneCommentsAnxiety Screening 10/22/2003Depression Xrqkbplpy87/24/2004HIV Kcqzggxur63/24/2004Hepatitis C Iqvyvbhld51/24/2004Hepatitis B Vaccine (1 of 3 - 19+ 3-dose series)2004HPV Vaccine (1 - 3-dose SCDM series)2012Cervical Cancer Mudwrbxia93/07/2021 12/04/2017DTaP,Tdap,Td Vaccine (2 - Td or Tdap)Covid-19 Vaccine (1 - season)2024Influenza Vaccine (#1) (Patient/Parent/Guardian Counseled and Declines)RSV Vaccine (1 - 1-dose 75+ series)2060 Procedures Procedure NamePriorityDate/TimeAssociated DiagnosisCommentsIRON + TIBCRoutine 04/03/2025 9:20 AM EST 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) Vitamin D deficiency Primary hypercoagulable state (HCC) CVA, old, speech/language deficit FERRITIN BOIFnsondn88/05/2025 9:20 AM EST 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) Vitamin D deficiency Primary hypercoagulable state (HCC) CVA, old, speech/language deficit COMPREHENSIVE METABOLIC IRWMTVyzuarn51/05/2025 9:20 AM EST 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) Vitamin D deficiency Primary hypercoagulable state (HCC) CVA, old, speech/language deficit CBC + BCFTOsgtnvn10/05/2025 9:20 AM EST 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) Vitamin D deficiency Primary hypercoagulable state (HCC) CVA, old, speech/language deficit COMPREHENSIVE METABOLIC VUDLNGgineiq08/03/2025 11:40 AM EST 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) Vitamin D deficiency Primary hypercoagulable state (HCC) CBC + JYJTDvwecjr04/03/2025 11:40 AM EST 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) Vitamin D deficiency Primary hypercoagulable state (HCC) VITAMIN D 25 IUPAVYBFyqknsn65/03/2025 11:40 AM EST 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) Vitamin D deficiency from Last 3 Months Results * (ABNORMAL) IRON AND TIBC (04/03/2025 9:20 AM EST)ComponentValueRef RangeTest MethodAnalysis TimePerformed AtPathologist GaxyesaryHojs1165 - 186 ug/dL 04/03/2025 6:56 PM [facility] JJVXMGA302(H)232 - 386 ug/dL 04/03/2025 6:56 PM [facility] LABTransferrin Hgcdozjvkv54.8(L) 15.0 - 57.0 %04/03/2025 6:56 PM [facility] LABSpecimen (Source) Anatomical Location / LateralityCollection Method / VolumeCollection Time Received TimeBloodBLOOD SPECIMEN / UnknownVenipuncture / Votcvbj4804/03/2025 9:20 AM EST04/03/2025 9:20 AM EST Narrative Authorizing ProviderResult TypeResult Chester Caban APRN.CNPLABORATORY Final ResultPerforming OrganizationAddressCity/State/ZIP CodePhone Number [facility] [address] [place] [address], * (ABNORMAL) FERRITIN (04/03/2025 9:20 AM EST)ComponentValueRef RangeTest Method Analysis TimePerformed AtPathologist QtqexxkfoDwtfyijt26.8(L)14.7 - 205.1 ng/mL04/03/2025 7:03 PM [facility] LABSpecimen (Source) Anatomical Location / LateralityCollection Method / VolumeCollection Time Received TimeBloodBLOOD SPECIMEN / UnknownVenipuncture / Mmnzbkm2704/03/2025 9:20 AM EST04/03/2025 9:20 AM EST Narrative Authorizing ProviderResult TypeResult Chester Caban APRN.CNPLABORATORY Final ResultPerforming OrganizationAddressCity/State/ZIP CodePhone Number [facility] [address] * (ABNORMAL) COMPREHENSIVE METABOLIC PANEL (04/03/2025 9:20 AM EST) Only the most recent of2 resultswithin the time period is included. ComponentValueRef RangeTest MethodAnalysis TimePerformed AtPathologist Signature Protein, Total6.46.3 - 8.0 g/dL04/03/2025 10:27 AM [facility] LABAlbumin3.93.9 - 4.9 g/dL04/03/2025 10:27 AM [facility] LABCalcium, Total9.48.5 - 10.2 mg/dL04/03/2025 10:27 AM EST [facility] LABBilirubin, Total0.20.2 - 1.3 mg/dL 04/03/2025 10:27 AM [facility] LABAlkaline Phosphatase 8834 - 123 U/L106/04/2024 10:27 AM [facility] DOMTHP36 (L)13 - 35 U/L106/04/2024 10:27 AM [facility] NHEDZW15 - 38 U/L106/04/2024 10:27 AM [facility] MZRCmspnjv5579 - 99 mg/dL04/03/2025 10:27 AM [facility] LABComment: The [place] Diabetes Association (ADA) provides guidance for cutoff [...] Standards of Medical Care in Diabetes 2016, [place] Diabetes Association. Diabetes Care. 2016.39(Suppl 1). BUN6(L)7 - 21 mg/dL04/03/2025 10:27 AM [facility] Creatinine0.53(L)0.58 - 0.96 mg/dL04/03/2025 10:27 AM [facility] GJHCrsmgp110(L)136 - 144 mmol/L106/04/2024 10:27 AM [facility] LABPotassium4.13.7 - 5.1 mmol/L106/04/2024 10:[address] [facility] BXCAkeaipfq45761 - 107 mmol/L106/04/2024 10:27 AM [facility] GSBOV44297 - 30 mmol/L106/04/2024 10:27 AM [facility] LABAnion Dpm744 - 15 mmol/L106/04/2024 10:27 AM [facility] LABEstimated Glomerular Filtration Fiyx216>=60 mL/min/1.73m 04/03/2025 10:27 AM [facility] LABComment:Estimated Glomerular Filtration Rate (eGFR) is [...] VolumeCollection TimeReceived TimeBloodBLOOD SPECIMEN / UnknownVenipuncture / Dksvaex0204/03/2025 9:20 AM EST04/03/2025 9:20 AM EST Narrative Authorizing ProviderResult TypeResult StatusHolly Arsh GAY.CNPLABORATORY Final ResultPerforming OrganizationAddressCity/State/ZIP CodePhone Number [facility] [address] [place] [address] * (ABNORMAL) COMPLETE BLOOD COUNT AND DIFFERENTIAL (04/03/2025 9:20 AM EST) Only the most recent of2 resultswithin the time period is included. ComponentValueRef RangeTest MethodAnalysis TimePerformed AtPathologist Signature WBC7.113.70 - 11.00 k/uL04/03/2025 9:27 AM [facility] LABRBC3.923.90 - 5.20 m/uL04/03/2025 9:27 AM [facility] SRXYpvpfpbkjg97.211.5 - 15.5 g/dL04/03/2025 9:27 AM [facility] LJTMnfcobdduz28.5(L)36.0 - 46.0 %04/03/2025 9:27 AM EST [facility] HEOBJQ83.080.0 - 100.0 fL04/03/2025 9:27 AM [facility] VPXPHH34.126.0 - 34.0 pg04/03/2025 9:27 AM [facility] ZQSIYQM48.430.5 - 36.0 g/dL04/03/2025 9:27 AM [facility] LABRDW-CV13.611.5 - 15.0 %04/03/2025 9:27 AM [facility] LABPlatelet Znhcq454958 - 400 k/uL 04/03/2025 9:27 AM [facility] LABMPV9.59.0 - 12.7 fL 04/03/2025 9:27 AM [facility] LABNeutrophils %61.6% 04/03/2025 9:27 AM [facility] LABAbs Neut4.371.45 - 7.50 k/uL04/03/2025 9:27 AM [facility] LABLymphocytes %27.8%04/03/2025 9:27 AM [facility] LABAbs Lymph1.98 1.00 - 4.00 k/uL04/03/2025 9:27 AM [facility] Monocytes %9.3%04/03/2025 9:27 AM [facility] LABAbs Mono0.66<0.87 k/uL04/03/2025 9:27 AM [facility] Eosinophils %0.8%04/03/2025 9:27 AM [facility] LABAbs Eosin0.06<0.46 k/uL04/03/2025 9:27 AM [facility] Basophils %0.1%04/03/2025 9:27 AM [facility] LABAbs Baso<0.03<0.11 k/uL04/03/2025 9:27 AM [facility] Immature Granulocytes %0.4%04/03/2025 9:27 AM [facility] LABAbs Immature Gran0.03<0.10 k/uL04/03/2025 9:27 AM [facility] LABNRBC0.0/100 WBC04/03/2025 9:27 AM [facility] LABAbsolute nRBC<0.01<0.01 k/uL04/03/2025 9:[address] [facility] LABDiff NdjlZfvo14/05/2025 9:[address] [facility] LABSpecimen (Source)Anatomical Location / LateralityCollection Method / VolumeCollection TimeReceived TimeBloodBLOOD SPECIMEN / UnknownVenipuncture / Upcqiuk2704/03/2025 9:20 AM EST04/03/2025 9:20 AM EST Narrative Authorizing ProviderResult TypeResult StatusHolly Arsh HATHAWAYNLazaraCNPLABORATORY Final ResultPerforming OrganizationAddressCity/State/ZIP CodePhone Number [facility] [address] [place] [address] * VITAMIN D 25 HYDROXY (03/02/2025 11:40 AM EST)ComponentValueRef RangeTest MethodAnalysis TimePerformed AtPathologist SignatureVitamin D 25 Lxhuaob74.6 31.0 - 80.0 ng/mL03/02/2025 9:47 PM [facility] LABSpecimen (Source)Anatomical Location / LateralityCollection Method / VolumeCollection TimeReceived TimeBloodBLOOD SPECIMEN / UnknownVenipuncture / Woggloj2503/02/2025 11:40 AM EST03/02/2025 11:41 AM EST Narrative Authorizing ProviderResult TypeResult StatusHolly Arsh OCHOACNPLABORATORY Final ResultPerforming OrganizationAddressCity/State/ZIP CodePhone Number [facility] [address] [place] [address], from Last 3 Months Insurance MemberSubscriberPlan / Payer (Effective 2022-Present)Name:Sanna Bone Relation to Subscriber:SelfName:Sanna Bone Payer ID:[id number] (NAIC) Group ID:[id number] Type:Medicaid Address: [place] [phone] Care Teams Team MemberRelationshipSpecialtyStart DateEnd Evans Casas DO [address] [place] [address] PCP - GeneralFamily Sjnuhbha22/3/22 Jonny Wilcox MD [address] [place] [id number] Primary Staff PhysicianCardiology07/16/18 [place] [address] [place] [id number] PhysicianHematology/Oncology09/14/21 Davida Restrepo, MARSHA [address] [place] [id number] Specialty Care CoordinatorHematology/Oncology09/14/21
--- OUTSIDE RECORDS SUMMARY | 2025-04-16 19:22 | XMS_ITS | Encounter Summary ---
Author Organization [facility] Address [address] [place] [address] Care Team Providers Care Custody Assistant Name Role Phone Evans Casas MD Primary Care Provider [phone] Encounter Details DateTypeDepartmentCare Team (Latest Contact Info)Wdjawjcpoet35/11/2025linisync Result Encounter [facility] External Department Unsolicited Mya Herrmann, DO [address] [place] [place], [place] [id number] Social History Tobacco UseTypesPacks/DayYears UsedDateSmoking Tobacco: NeverSmokeless Tobacco: NeverAlcohol UseStandard Drinks/WeekCommentsNever0 (1 standard drink = 0.6 oz pure alcohol)PHQ-2AnswerDate RecordedPatient Health Questionnaire-2 Score0 03/03/2025Estimated Date of AyahokpxMtorkkfnMyn78/05/2026ased on last menstrual period of 07/28/2024Sex and Gender InformationValueDate RecordedSex Assigned at BirthNot on fileLegal XdgQlugdj10/15/2023 11:19 PM EDTGender IdentityNot on fileSexual OrientationNot on filedocumented as of this encounter Plan of Treatment Not on file documented as of this encounter Procedures Procedure NamePriorityDate/TimeAssociated DiagnosisCommentsUS OB BPP W NON-LJPTZQ7304/09/2025 10:07 PM EST documented in this encounter Results * US OB BPP W NON-STRESS (04/09/2025 10:07 PM EST)Anatomical Region LateralityModalityOtherSpecimen (Source)Anatomical Location / Laterality Collection Method / VolumeCollection TimeReceived Time04/09/2025 10:07 PM EST Narrative 04/09/2025 10:10 PM EST [facility] ?[address] ? [place] [address] ? Ultrasound Report ? Signed ? Patient: JUSTICE,SANNA S ?MR#: [id number] ?? : 1985 ?Acct:[id number] ?? Age/Sex: 39 / F ?ADM Date: 04/09/25 ?? Loc: US ? Attending Dr: Mya Herrmann D.O. ? Ordering Physician: Mya Herrmann D.O. ?? Date of Service: 04/09/25 ?? Procedure(s): US OB BPP w non-stress ?? Accession Number(s): [id number] ? cc: Mya Herrmann D.O.; Physician,Non-Staff Tamia ? [facility] ? [address] ? [place] [address] ? Patient Name: ?? SANNA RENDON ? MRN: [facility]:[id number] ? date: 1985 ?Sex: F ?? Assigned Patient Location: [facility]BC ?? Current Patient Location: ? Accession/Order Number: [id number] ?? Exam Date: 04/09/2025 ??19:15 ?Report Date: [...] Dictation Location: RADIO-PC-29 ? Electronically authenticated by: [id number] ??Y ?? Date: 04/09/2025 ??22:07 ? Dictated By: ?Mert Estrada M.D. ? Signed By: ?04/09/25 2210 ? DD/ 06 ? TD/TT: ? Copy Holder: Procedure Note Radiology, Radiologist, MD - 04/09/2025 [facility] [place] [id number] Ultrasound Report Signed Patient: SANNA RENDON SMR#: [id number] : 1985Acct:[id number] Age/Sex: 39 / FADM Date: 04/09/25 Loc: US Attending Dr: Mya Herrmann D.O. Ordering Physician: Mya Herrmann D.O. Date of Service: 04/09/25 Procedure(s): US OB BPP w non-stress Accession Number(s): [id number] cc: Mya Herrmann D.O.; Physician,Non-Staff Tamia [facility] [place] [id number] Patient Name: SANNA RENDON MRN: [id number] date: 1985 Sex: F Assigned Patient Location: [facility] Current Patient Location: Accession/Order Number: [id number] Exam Date: 04/09/2025 19:15 Report Date: 04/09/2025 22:07 At the request of: MYA HERRMANN DO Procedure: US OB BPP w non-stress Ultrasound biophysical profile INDICATION: Third trimester COMPARISON: 04/02/2025 FINDINGS AND IMPRESSION: Fetus in cephalic presentation. heart yqua166 beats per minutes. SARAHI measuring 10.9 cm. Biophysical profile 8/8. Impression dictated by: Mert Estrada M.D. 04/09/2025 10:07 PM Dictation Location: [place] [address] Electronically authenticated by: [id number] Y Date: 2:07 Dictated By: Mert Estrada M.D. Signed By:04/09/252209 DD/ 06 TD/TT: Copy Holder: Authorizing ProviderResult TypeResult StatusCorey Montez DOCLINISYNC IMAGINGFinal Result documented in this encounter Visit Diagnoses Not on filedocumented in this encounter Care Teams Team MemberRelationshipSpecialtyStart DateEnd Date Evans Casas MD [address] [place] [address] [place] [address] PCP - GeneralFamily Medicine11/07/23documented as of this encounter
--- OUTSIDE RECORDS SUMMARY | 2025-04-16 19:22 | XMS_ITS | Encounter Summary ---
Author Organization [facility] Address [address] [place] [address] Care Team Providers Care Cigar Making Machine Supervisor Name Role Phone Evans Casas MD Primary Care Provider [phone] Encounter Details DateTypeDepartmentCare Team (Latest Contact Info)Ivijjfshclh44/15/2025External Result Encounter [facility] External Department Unsolicited Wilton Herrmann, DO [address] [place] [place], [place] [phone] Social History Tobacco UseTypesPacks/DayYears UsedDateSmoking Tobacco: NeverSmokeless Tobacco: NeverAlcohol UseStandard Drinks/WeekCommentsNever0 (1 standard drink = 0.6 oz pure alcohol)PHQ-2AnswerDate RecordedPatient Health Questionnaire-2 Score0 03/03/2025Estimated Date of NipwrameHwdzbhusWxa36/05/2026ased on last menstrual period of 07/28/2024Sex and Gender InformationValueDate RecordedSex Assigned at BirthNot on fileLegal JveRdkizd80/15/2023 11:19 PM EDTGender IdentityNot on fileSexual OrientationNot on filedocumented as of this encounter Plan of Treatment Not on file documented as of this encounter Procedures Procedure NamePriorityDate/TimeAssociated DiagnosisCommentsCULTURE, URINE, TXFMUBVVkucqjf17/15/2025 3:25 PM EST documented in this encounter Results * Urine culture (04/13/2025 3:25 PM EST)ComponentValueRef RangeTest Method Analysis TimePerformed AtPathologist SignatureFRMC NOTE?20,000 colonies/ml mixed ?bacterial skin contaminants ?2 Days 04/15/2025 12:13 PM [facility]trSpec[facility] (Source)Anatomical Location / LateralityCollection Method / VolumeCollection TimeReceived Time Clean-Voided Midstream (Clean Void Midstream)04/13/2025 3:25 PM EST04/13/2025 8:54 PM EST [facility] - 04/15/2025 12:13 PM EST Diagnosis: VAGINAL FLUID, LOWER BACK PAIN Comment: Authorizing ProviderResult TypeResult StatusCorey Montez DOLAB MICROBIOLOGY - GENERAL ORDERABLESFinal ResultPerforming OrganizationAddressCity/State/[facility] Code Phone Number [facility] [address] [place] [address], [facility] [address] [place] [address] documented in this encounter Visit Diagnoses Not on filedocumented in this encounter Care Teams Team MemberRelationshipSpecialtyStart DateEnd Date Evans Casas MD [address] [place] [address] PCP - GeneralFamily Medicine11/07/23documented as of this encounter
--- OUTSIDE RECORDS SUMMARY | 2025-04-16 19:22 | XMS_ITS | Clinical Summary ---
Author Organization [employer] tem Address [id number] [address] [place] [address] Care Team Providers Care Reception Centre Manager Name Role Phone Evans Casas DO Primary Care Provider [phone] Allergies Active AllergyReactionsCriticalityNoted DateCommentsCiprofloxacinDizziness 06/19/2019LactalbuminOther (See Comments)Low05/25/2017 Other reaction(s): GI Upset Crampy and gassy LactoseGI Qkkerrtxnje51/14/2018 Diarrhea Milk Containing Products (Dairy)Other (See Comments)Low05/25/2017 [...] for 15 days and change 2 each 5Active enoxaparin (LOVENOX) 40 mg/0.4 mL syringe Indications:Antiphospholipid syndromeInject 0.4 mL (40 mg total) under the skin Every 12 (twelve) hours. 24 mL 605Active metFORMIN XR (GLUCOPHAGE XR) 500 mg 24 hr tablet Take 500 AM and 1000 mg at night. 90 tablet 5Active Active Problems ProblemNoted DateDiagnosed DateGestational diabetes mellitus (GDM) in third trimester controlled on oral hypoglycemic drug12/17/20241910Kpuhqr41/08/2025MA (advanced maternal age) multigravida 35+11/04/2024ntiphospholipid syndrome 11/04/20241205Lzoegcqnhcz55/08/0156Gcsmbf61/08/2025ntiphospholipid syndrome complicating , widhrikdrl97/09/2020Estimated Date of Delivery CluzmgjhKxz89/05/2026Based on last menstrual period of 07/28/2024 Resolved Problems ProblemNoted DateDiagnosed DateResolved DateCerebral infarction, unspecified Migraine without aura and without status migrainosus, not ssrpovablgx27 Encounters DateTypeDepartmentCare DgyaVzmoaeaknxo92/09/2025 1:30 PM ESTTelemedicine Maternal[facility] at [place] [address] [place] [address] Davida Smith PA-C Gestational diabetes mellitus (GDM) in third trimester controlled on oral hypoglycemic drug (Primary Dx)04/07/20251693Mlqbdo12/18/2025 2:00 PM ESTTelemedicine [facility] Department of [address] [address] Sam Callahan MD MPH Antiphospholipid syndrome complicating , antepartum (Primary Dx); Antiphospholipid syndrome; History of CVA (cerebrovascular accident); Coordination of complex care; 33 weeks gestation of bopkezcmm98/18/2025Orders Only [facility] Department of [address] [address] Ref Prov, Not In System 03/17/20257485Drypck43/12/2025 9:45 AM ESTTelemedicine Maternal- Medicine at [address] [address] Sana Palma MD Khurshid, Nauman, MD Gestational diabetes mellitus (GDM) in second trimester controlled on oral hypoglycemic drug (Primary Dx); Antiphospholipid wzgwbjge63/12/9765Awhruu05/07/7186Cwfoey09/23/2025Orders Only [facility] Department of [address] [address] Ref Prov, Not In System 02/18/2025Orders Only [facility] Department of [address] [address] Ref Prov, Not In System 02/16/2025 1:45 PM EDTOffice Visit [facility] Department of [facility] [address] [phone] Sam Callahan MD MPH Antiphospholipid syndrome (Primary Dx); Antiphospholipid syndrome complicating , antepartum; History of CVA (cerebrovascular accident); Coordination of complex care; 29 weeks gestation of ypdsrylmu47/20/6037Yrpjzp93/14/2025Telephone Maternal- Medicine at [place] [address] [place] [address] Annita Kendall LD 02/06/2025 2:00 PM EDTTelemedicine Maternal- Medicine at [place] [address] [place] [address] Wilfrid Medina MD 27 weeks gestation of (Primary Dx); Multigravida of advanced maternal age in third trimester; Gestational diabetes mellitus (GDM) in second trimester controlled on oral hypoglycemic drug; Antiphospholipid syndrome complicating , antepartum; Antiphospholipid /10/8668Rfrdeu35/09/2025Travelfrom Last 3 Months Family History Medical FrvbofjAmlsgxzxVgcfSvidwhawWrsxicfwDugxweH0YAAijmsxUzfhfyRcedym illness Maternal GrandmotherCancerPaternal GrandfatherDiabetesPaternal FwfxttvxlruB1AZ CancerPaternal GrandmotherDiabetesPaternal EestfezsmngO7CIZqpelmhaKsvuhiH0CS RelationNameStatusCommentsFatherDeceasedMaternal GrandmotherPaternal Grandfather Paternal GrandmotherSister Social History Tobacco UseTypesPacks/DayYears UsedDateSmoking Tobacco: NeverSmokeless Tobacco: Never Tobacco Cessation:Counseling Given: Not Answered Alcohol UseStandard Drinks/WeekCommentsNot Currently0 (1 standard drink = 0.6 oz pure alcohol)ChildcareAnswerDate CtkuvqppVlcttgakwMxvrfku20/31/2019Employment AnswerDate QklruchnZmypadvfjeFoftpcq46/31/2019Hunger ScreeningAnswerDate RecordedWithin the past 12 months we worried whether our food would run out before we got money to buy more.Never True01/01/2025Within the past 12 months the food we bought just didn't last and we didn't have money to get more.Never True01/01/2025Purpose - LifeAnswerDate RecordedPurpose and direction in life Ubsytuv73/11/2021Estimated Date of GwivvwszOkdwfkeeDxc15/05/2026ased on last menstrual period of 07/28/2024Sex and Gender InformationValueDate Recorded Sex Assigned at BirthNot on fileLegal WpaWsifma34/31/2019 12:25 PM EDTGender IdentityNot on fileSexual OrientationNot on file Last Filed Vital Signs Vital SignReadingTime TakenCommentsBlood Wynpaxfk874/801 1:44 PM EDT Ckvrb174902/16/2025 1:44 PM EDTTemperature--Respiratory Qixk8809 1:44 PM EDTOxygen Saturation--Inhaled Oxygen Concentration--Qmkhwv90.8 kg (209 lb) 02/16/2025 1:44 PM XKCAyrgtc190.6 cm (5' 6 )02/16/2025 1:44 PM EDTBody Mass Index33.7302/16/2025 1:44 PM EDT Plan of Treatment Health MaintenanceDue DateLast DoneCommentsDepression Ejfudqvoa96/24/1998Adult BMI Follow Up Plan10/22/2003DTaP,Tdap and Td Vaccines (2 - Td or Tdap)07/03/2024 07/03/2014Influenza Asrbyzz6012/29/2024Pap Smeardult BMI Dynpphqbh06Tobacco Fnedkflsu37RSV ( or age 60+ yrs) (No Doses Required)Completed Medical Devices Not on file Procedures Procedure NamePriorityDate/TimeAssociated DiagnosisCommentsEXTERNAL LAB ORDERS / CRBAJRFQeqozjj27/18/2025 4:22 PM ESTEXTERNAL LAB ORDERS / RESULTSRoutine 02/19/2025 3:15 PM EDTEXTERNAL LAB ORDERS / BSGQHNNZupprwi91/23/2025 3:13 PM EDT EXTERNAL LAB ORDERS / WTOCJVPDlpukiv63/22/2025 1:58 PM EDTUS MFM OB FOLLOW-UP, 1 DHTAELcppcgy53/09/2025 2:10 PM EDT Multigravida of advanced maternal [...] LEUNG : 1985 SEX: F Accession Number: [id number] ORDERING PHYSICIAN: MYA HERRMANN REFERRING PHYSICIAN: MYA HERRMANN Coding Procedures ? 59592: Ultrasound, uterus, real time with image documentation, follow up,transabdominal ? approach per fetus ? 33712: Echocardiography, , cardiovascular system, real time with image documentation (2D), with or ? without M-mode recording; follow-up or repeat study Indication Screening for follow-up survey, Screening for congenital cardiac abnormality , Gestational diabetes, AMA- Supervision of elderly , Supervision of high risk -(MOB son - hypospadia, MOB -son - laryngomalacia ), Obesity in , Hypothyroidism. History OB History ? 7. Para 3 ? T4K4F4U8 Current Cell free DNA ?Low Risk analysis [...] (oz) ? 4 oz EFW by: ?Hadlock (FTT-UN-AC-FL) Extended Tibia ??46.0 mm 28w 0d 68% [...] Heart/Thorax: 4-chamber view. RVOT view. 3-vessel view. 8-bqlnpj-thkvtqh view. Great vessels. ? Right lung. Left [...] previously RVOT view ?normal 3-vessel view ??normal 3-twuhfk-jymdwuq view ??normal Aortic arch view ? normal [...] MVP measures 6.7 cm. Recommendations Please see [facility] recommendations from prior clinical and/or ultrasound [...] LEUNG : 1985 SEX: F Accession Number: [id number] ORDERING PHYSICIAN: MYA HERRMANN REFERRING PHYSICIAN: MYA HERRMANN Coding Procedures 02977: Ultrasound, uterus, real time with image documentation, follow up, transabdominal approach per fetus 74661: Echocardiography, , cardiovascular system, real timewith image documentation (2D), with or without M-mode recording; follow-up or repeat study Indication Screening for follow-up survey, Screening for congenital cardiacabnormality , Gestational diabetes, AMA- Supervision of elderly , Supervision of high risk -(MOB son - hypospadia, MOB -son - laryngomalacia ), Obesity in , Hypothyroidism. History OB History 7. Para 3 H9A6T3E5 Current Cell free DNA Low Risk analysis [...] EFW (oz) 4 oz EFW by: Hadlock (XPJ-AB-AE-FL) Extended Tibia 46.0 mm 28w 0d 68% [...] Heart/Thorax: 4-chamber view. RVOT view. 3-vessel view. 5-vzhjpo-eleudorkmde. Great vessels. Right lung. Left lung. Diaphragm. [...] previously RVOT view normal 3-vessel view normal 1-xapvvq-lgumplo view normal Aortic arch view normal Ductal [...] MVP measures 6.7 cm. Recommendations Please see [facility] recommendations from prior clinical and/or ultrasoundreport [...]
--- OUTSIDE RECORDS SUMMARY | 2025-04-16 19:22 | XMS_ITS | Encounter Summary ---
Author Organization [facility] Address [address] [place] [address] Care Team Providers Care Fitness And Wellness Manager Name Role Phone Jonny Wilcox MD Unavailable [phone] Cosmo Elliott MD Unavailable [phone] Davida Restrepo RN Unavailable [phone] Evans Casas DO Primary Care Provider [phone] Source Comments In the event this information is protected by the Federal Confidentiality of Alcohol and Drug AbusePatient Records regulations: The Federal rules restrict any use of the information to criminally investigate or prosecute any alcohol or drug abuse patient.[facility] Encounter Details DateTypeDepartmentCare Team (Latest Contact Info)Zknwaojlcfj29/05/2025Travel Social History Tobacco UseTypesPacks/DayYears UsedDateSmoking Tobacco: NeverSmokeless Tobacco: NeverAlcohol UseStandard Drinks/WeekCommentsNo0 (1 standard drink = 0.6 oz pure alcohol)PHQ-2AnswerDate RecordedPHQ-2 yrtzj6294Area Deprivation Index AnswerDate RecordedNational Score (1-100), lower number is lower risk58 09/28/2022State Score (1-10), lower number is lower oazb0323Data from: https://www.neighborhoodatlas.medicine.[facility].edu/. Last address used for [address]Estimated Date of DeliveryCommentsYes 07/28/2024Sex and Gender InformationValueDate RecordedSex Assigned at BirthNot on fileLegal FohUtndmt80/29/2018 10:06 AM ESTGender IdentityNot on fileSexual OrientationNot on fileOccupationIndustryJob Start DateJob End Datestay at home momNot on fileNot on fileNot on filedocumented as of this encounter Plan of Treatment DateTypeDepartmentCare Team (Latest Contact Info)Addbmtrowhy65/09/2026 9:30 AM ESTOffice Visit [facility] [address] [address] lab in 5 weeks05/13/2025 5:00 PM [facility] Hematology/Oncology [address] [address] Salvador Dos Santos MD [address] [place] [address] VV for lab resultsdocumented as of this encounter Visit Diagnoses Not on filedocumented in this encounter Care Teams Team MemberRelationshipSpecialtyStart DateEnd Date Evans Casas DO [address] [facility] [place] [address] PCP - GeneralFamily Btlycrtt67/3/22 Jonny Wilcox MD [address] [place] [address] Primary Staff PhysicianCardiology07/16/18 [place] [address] [place] [address] PhysicianHematology/Oncology09/14/21 Davida Restrepo RN [address] [place] [address] Specialty Care CoordinatorHematology/Oncology09/14/21documented as of this encounter
[2025-04-16 19:58] VITALS: BP 112/63; PULSE 86
== END 2025-04-16 20:19 | disposition home or self-care (01) ==
LOC: US 19:18 → FBC 19:19
PROVIDERS: Visit Provider Obstetrics & Gynecology
DX: O24.419 Gestational diabetes mellitus in pregnancy, unspecified control (principal)
CPT/HCPCS: 76816; 76818

== ENCOUNTER 2025-04-16 23:13 | Inpatient (IN) | payer MEDICAID, SELFPAY ==
--- OUTSIDE RECORDS SUMMARY | 2025-04-03 09:40 | XMS_ITS | Encounter Summary ---
Author Organization [facility] Address [address] [place] [address] Care Team Providers Care Supervisor Burling And Joining Name Role Phone Jonny Wilcox MD Unavailable [phone] Cosmo Elliott MD Unavailable [phone] Davida Restrepo RN Unavailable [phone] Evans Casas DO Primary Care Provider [phone] Source Comments In the event this information is protected by the Federal Confidentiality of Alcohol and Drug AbusePatient Records regulations: The Federal rules restrict any use of the information to criminally investigate or prosecute any alcohol or drug abuse patient.[facility] Reason for Visit * ReasonCommentsChemotherapy Treatment Encounter Details DateTypeDepartmentCare Team (Latest Contact Info)Hfzeodwznry02/05/2025 9:40 AM ESTVisit (SP) Office Hematology/Oncology [address] [place] [address] [place] [address] Salvador Dos Santos MD [address] [place] [address] [place] [address] Antiphospholipid antibody positive (Primary Dx); Iron deficiency anemia secondary to blood loss (chronic); Primary hypercoagulable state (HCC); CVA, old, speech/language deficit; Gestational diabetes mellitus (GDM) in third trimester, gestational diabetes method of control unspecified (HCC); History of hemorrhage; Other vitamin B12 deficiency anemia; Diet controlled gestational diabetes mellitus (GDM) in third trimester (HCC); Antiphospholipid syndrome (HCC); 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; History of CVA (cerebrovascular accident) without residual deficits; Encounter for supervision of high risk in third trimester, antepartum (HCC) Social History Tobacco UseTypesPacks/DayYears UsedDateSmoking Tobacco: NeverSmokeless Tobacco: NeverAlcohol UseStandard Drinks/WeekCommentsNo0 (1 standard drink = 0.6 oz pure alcohol)PHQ-2AnswerDate RecordedPHQ-2 [id number] Deprivation Index AnswerDate RecordedNational Score (1-100), lower number is lower risk58 09/28/2022State Score (1-10), lower number is lower [id number] from: https://www.neighborhoodatlas.[facility].edu/. Last address used for wayskndfrfu[address]Estimated Date of DeliveryCommentsYes 07/28/2024Sex and Gender InformationValueDate RecordedSex Assigned at BirthNot on fileLegal PijRvggxm92/29/2018 10:06 AM ESTGender IdentityNot on fileSexual OrientationNot on fileOccupationIndustryJob Start DateJob End Datestay at home momNot on fileNot on fileNot on filedocumented as of this encounter Last Filed Vital Signs Vital SignReadingTime TakenCommentsBlood Ipmajvdd164/7412 9:24 AM EST Kdzgr121604/03/2025 9:24 AM AOWSjuxhdypbja31.5 ??C (97.7 ??F)04/03/2025 9:24 AM ESTRespiratory Tbqg178206/04/2024 9:24 AM ESTOxygen Egaoilgumv61%04/03/2025 9:24 AM ESTInhaled Oxygen Concentration--Tnksih61 kg (211 lb 10.3 oz)04/03/2025 9:24 AM ESTHeight--Body Mass Index34.1408 11:34 AM EDTdocumented in this encounter Patient Instructions * Patient Instructions* Salvador Dos Santos MD - 04/03/2025 10:13 AM EST 5 weeks - Labs to include anemia eval Virtual visit - 1-2 day after to review. We discussed your history of antiphospholipid syndrome (APS) and stroke: - You are currently taking Lovenox 40 mg twice a day, for a total of 80 mg daily, as a compromise between the full and prophylactic doses. Continue this dose as you have been doing. - Both your neurologist, Dr. Osorio, and I are comfortable with your current Lovenox regimen. - Before your upcoming delivery, you should stop taking Lovenox a couple of days prior, especially if a is planned. The exact timing will depend on your delivery plan, and your care team will guide you. - After a , you may need to delay restarting Lovenox or begin at a lower dose, depending on your recovery and your care team???s recommendations. We discussed your and upcoming delivery: - You are scheduled for an induction around the week before , possibly on the or , but the exact date may change depending on your computer technical support specialist???s plan and the baby???s position. - The baby is currently breech, and there is a higher chance you may need a C- section. If a is needed, you will not be able to have a spinal due to your medical history and will need general anesthesia. - We will monitor your labs after delivery to check for anemia. You do not need to come in for a visit; you can have your labs drawn and return home. We will follow up with a phone or virtual visit to review your results. We discussed your gestational diabetes: - You were initially advised to start insulin, but after a reaction to Lantus and insurance delays with [facility], your metformin dose was increased. Continue taking metformin as prescribed. - Your fasting blood sugars have been slightly above 100, but your current plan is working. We discussed your vitamin B12 and folic acid needs: - Your B12 level was low in November, and you have not been taking your B12 supplement recently. You should continue taking regular setrn-lnm-hmdcac B12. - Because you have the MTHFR mutation, it is important to continue taking folic acid. Your prenatalvitamins contain folic acid, but in the long run, you should take at least 1 mg of folic acid dailyto support your health. Follow-up: - We will check your labs in early April after your delivery to monitor for anemia. You do not need to come in for a visit; we will review your results by phone or virtual visit. - If you have a , your care team will advise you on when to restart Lovenox and at what dose. documented in this encounter Progress Notes * Salvador Dos Santos MD - 04/03/2025 9:40 AM EST Images from the original note were not included. NAME: Sanna Bone CLINIC NO.: [id number] DATE OF SERVICE: April 03, 2025 (Levon) Some elements in this clinic note that are critical to medical decision making have been carefully reviewed and included from a prior clinic note dated: March 02, 2025 (Arsh). Additional Clinicians involved in Sanna Bone's care: Jorge Mcwilliams, Humaira Gaviria, CC: Hypercoag state CASE SUMMARY / ASSESSMENT: 39 year old woman presents with a prior history of CVA in 2016 and an antiphospholipid antibody that was identified much later in 2018. These were found in [place], [place]. I don't have access to these [...] target-like rash shortly before presenting to [facility] in 2016 with headaches and was [...] SUMMARIZED PLAN OF CARE: Continue Lovenox Saw ADMISSION NURSE COORDINATOR and patient increased Lovenox to 40 mg twice daily after additional recommendation Will need to pause Lovenox 1-2 days prior to her current plans for induction Continue B12 SL Continue Folic acid 1 mg daily 5 weeks - Labs to include anemia eval Virtual visit - 1-2 day after to review. AI ASSISTED A/P: 1. Antiphospholipid syndrome (HCC) (D68.61) 2. Antiphospholipid antibody positive (R76.0) 3. Primary hypercoagulable state (HCC) (D68.59) 4. 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 Patient continues on Lovenox 40 mg BID as a compromise between MFM recommendation and bleeding risk. Neurology is agreeable to this regimen. No new thrombotic events reported. - Continue Lovenox 40 mg BID. - Hold Lovenox 2 days prior to planned delivery (induction or ), adjust timing as needed per OB. - Resume Lovenox per OB guidance, may need to delay restart if C- section performed. - Monitor for bleeding, especially around delivery. 5. Iron deficiency anemia secondary to blood loss (chronic) (D50.0) No current evidence of anemia. No recent labs since November. History of hemorrhage increases risk. - Obtain CBC in early April after delivery to assess for anemia. - Labs can be drawn without in-person visit; follow up by phone or virtual visit. 6. 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 History of CVA (cerebrovascular accident) without residual deficits (Z86.73) Remote CVA in 2016, no current deficits. No new neurologic symptoms reported. 8. Gestational diabetes mellitus (GDM) in third trimester, gestational diabetes method of control unspecified (HCC) (O24.419) 9. Diet controlled gestational diabetes mellitus (GDM) in third trimester ([facility]) (O24.410) GDM this , previously recommended insulin but patient managed with increased metformin dueto insurance and intolerance to Lantus. Fasting sugars remain slightly elevated but controlled on current regimen. - Continue metformin as currently prescribed. - Monitor blood glucose as directed by OB. 10. History of hemorrhage (Z87.59) History of hemorrhage with prior deliveries except one. Increased risk with current , especially if required. - OB to manage delivery planning with attention to hemorrhage risk. - Hold Lovenox prior to delivery to reduce bleeding risk. 11. Other vitamin B12 deficiency anemia (D51.8) History of low B12, last low in November. Patient stopped sublingual B12 a few months ago. On metformin, which may contribute to low B12. MTHFR mutation present. - Resume sublingual B12 supplement. - Check B12 level with labs. 12. Encounter for supervision of high risk in third trimester, antepartum ([facility]) (O09.93) Currently 35 weeks, induction planned for week before [place]. Fetus is breech, possible need forC-section. High risk due to APS, GDM, history of hemorrhage, and prior CVA. - Continue vitamins with folic acid (at least 1 mg daily). - Follow up with OB for delivery planning and position. - Return to clinic in 5 weeks for follow-up and labs. ___ HPI: Updated Visit, April 03, 2025: The patient is a 39-year-old female with APS, MTHFR mutation, and a history of CVA, presenting for follow-up. The patient was diagnosed with APS and MTHFR mutation by Dr. Osorio after a CVA on 02/03/2016. She was initially managed with prophylactic Lovenox 40 mg daily. She is currently and taking Lovenox 40 mg BID. She has a history of hemorrhage with prior deliveries. Since her last visit on 05/28, she experienced a miscarriage in 04/2023, after which she noted her heart rate dropped to the 30s and then returned to the 60s. She is currently 35 weeks with a breech fetus and is scheduled for induction before [place]. She has gestational diabetes managed with metformin after a reaction to Lantus and insurance delays with [employer]. She has not been taking B12 for several months and is taking vitamins with folic acid. She has 4 children, ages 17, 10, 5, and 2. She is currently . - (November) Vitamin B12: Low. Updated Visit, March 02, 2025 (Arsh): The patient is a 39-year-old female with [...] Osorio soon. When she hada stroke in [place], she had symptoms up to a month before: uncontrollable headache, BP was elevated, knee stiffness, and blurry vision. Right facial drooping and difficulty speaking [facility] She continues to take vitamins. Updated [...] and stayed on Lovenox Hgb 13.[address] [facility] Recommended ER if persisting bleeding but she [...] and at age 69. Both lived in [facility] but she was adopted. She was not able to see ID in October and will be seeing Dr. Baugh next week. Also will have her see Dr. Hamlin for her clotting disorder and make any other recommendations to optimize her treatment. Updated Visit, October 08, 2020: Telephone only Received call from pt stating she was seen in [facility] ER for numbness in her chest, throat, and extremities, and sob which has been worsening over the last week. We arranged a telephone visit for her franci questions with me. Sanna Bone is a 34 year old female seen for Hypercoagulable state and recent concerns and symptoms that required her to be seen at [facility] ER. She went to the ER with Gradual worsening of breathing after progressive tingling of fingers and legs. She currently remains very fatigued even though she is sleeping well. Now recalls that before her stroke she remembers having a bull's eye rash and was seen with severe headaches in [place], [place] - was found to have a [...] a root canal and was sent to [facility] for MRI which was negative but non-contrasted. [...] history goes back to January 2016 in [facility] where she had persisting headaches and slurred speech followed by lower extremity weakness. This took a few months to resolve and she is back to her normal state of being but some point in time during her her next she was seen by Dr. Pascual Hyde in [place] as well and was found to have [...] PERFORMANCE STATUS: 0 PHYSICAL EXAMINATION: Vitals: BP 113/74 Pulse 98 Temp (Src) 97.7 (Temporal) Resp 16 Wt 211 lb 10.3 oz (96.0kg) SpO2 98% LMP 10/28/2024 Body surface area is 2.11 meters squared. Exam limited to gross visualization [...] rash, lesions, wounds or petechiae. ___ ALLERGIES: Allergies Allergen Reactions Ciprofloxacin Other: See Comments and Unknown Dizziness, weakness sweating Ciprofloxacin-Fluocinolone Other: See Comments Dizziness, weakness sweating Lactose GI Upset Diarrhea Seasonal Allergies GI Upset and Other: See Comments Lactalbumin Unknown and GI Upset Crampy and gassy Milk Other: See Comments Crampy and gassy Diarrhea Other reaction(s): GI Upset Crampy and gassy Milk Containing Products (Dairy) Other: See Comments Crampy and gassy Diarrhea Other reaction(s): GI Upset Crampy and gassy MEDICATIONS: levothyroxine (SYNTHROID) 25 mcg tablet TAKE 1 TABLET BY MOUTH IN THE MORNING BEFORE MEAL(S) enoxaparin (LOVENOX) 40 mg/0.4 mL INJECT 1 SYRINGE SUBCUTANEOUSLY EVERY 24 HOURS polyethylene glycol 3350 (MIRALAX PO) Take by mouth. metFORMIN ER (GLUCOPHAGE XR) 500 mg 24 hr tablet multivitamin tablet Take 1 tablet by mouth once daily. progesterone vaginal suppository 200 mg (CPD) Use 200 mg vaginally. Unwrap and insert as directed. docusate sodium (COLACE PO) Take by mouth. (Patient not taking: Reported on 04/03/2025) LABORATORY VALUES: WBC (k/uL) Date Value 04/03/2025 7.11 RBC (m/uL) Date Value 04/03/2025 3.92 Hemoglobin (g/dL) Date Value 04/03/2025 12.2 Hematocrit (%) Date Value 04/03/2025 34.5 (L) MCV (fL) Date Value 04/03/2025 88.0 MCH (pg) Date Value 04/03/2025 31.1 MCHC (g/dL) Date Value 04/03/2025 35.4 RDW-CV (%) Date Value 04/03/2025 13.6 Platelet Count (k/uL) Date Value 04/03/2025 244 MPV (fL) Date Value 04/03/2025 9.5 Glucose (mg/dL) Date Value 04/03/2025 90 BUN (mg/dL) Date Value 04/03/2025 6 (L) Creatinine (mg/dL) Date Value 04/03/2025 0.53 (L) Sodium (mmol/L) Date Value 04/03/2025 134 (L) Potassium (mmol/L) Date Value 04/03/2025 4.1 Chloride (mmol/L) Date Value 04/03/2025 102 CO2 (mmol/L) Date Value 04/03/2025 22 Protein, Total (g/dL) Date Value 04/03/2025 6.4 Albumin (g/dL) Date Value 04/03/2025 3.9 Calcium, Total (mg/dL) Date Value 04/03/2025 9.4 Alkaline Phosphatase (U/L) Date Value 04/03/2025 88 Bilirubin, Total (mg/dL) Date Value 04/03/2025 0.2 AST (U/L) Date Value 04/03/2025 12 (L) ALT (U/L) Date Value 04/03/2025 8 DIAGNOSIS: (R76.0) Antiphospholipid antibody positive (primary encounter diagnosis) (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) Plan: COMPLETE BLOOD COUNT AND DIFFERENTIAL, COMPREHENSIVE METABOLIC PANEL, IRON AND TIBC, FERRITIN, VITAMIN B12, FOLATE, SERUM (D68.59) Primary hypercoagulable state (HCC) (I69.328) CVA, old, speech/language deficit (O24.419) Gestational diabetes mellitus (GDM) in third trimester, gestational diabetes method of control unspecified ([facility]) (Z87.59) History of hemorrhage (D51.8) Other vitamin B12 deficiency anemia Plan: VITAMIN B12 (O24.410) Diet controlled gestational diabetes mellitus (GDM) in third trimester ([facility]) (D68.61) Antiphospholipid syndrome (HCC) (Z79.01) jail (current) use of anticoagulants (Z86.73) History of CVA (cerebrovascular accident) without residual deficits (O09.93) Encounter for supervision of high risk in third trimester, antepartum (HCC) PAST MEDICAL HISTORY Diagnosis Date Antiphospholipid [...] of 30 minutes on the date of service which included preparing to see the patient, gmwt-sb-jwdx patient care, completing clinical documentation, performing a medically appropriate examination, counseling and educating the patient/family/caregiver, ordering medications, tests, or procedures, independently interpreting results (not separately reported), communicating results to the patient/family/caregiver, and care coordination (not separately reported) Salvador Dos Santos MD, CPE Hematology and Oncology Services Provided at: [facility], [place], [place] . CC: MD Wilton Day, [address] [place] [address] Humaira Gaviria MD [address] [facility] [facility] [id number] MD Cosmo Kingston MD Michael [place], MD documented in this encounter Plan of Treatment DateTypeDepartmentCare Team (Latest Contact Info)Auoianwxxau35/09/2026 9:30 AM ESTOffice Visit [facility] [address] [address] lab in 5 weeks05/13/2025 5:00 PM [facility] Hematology/Oncology [address] [place] [address] Salvador Dos Santos MD [address] [place] [address] [place] [address] VV for lab resultsNameTypePriorityAssociated DiagnosesOrder ScheduleVITAMIN B12 LabRoutine Other vitamin B12 deficiency anemia Expected: 04/03/2025, Expires: 07/03/2025OMPLETE BLOOD COUNT AND DIFFERENTIAL LabRoutine Iron deficiency anemia secondary to blood loss (chronic) Expected: 05/08/2025 (Approximate), Expires: 04/03/2026OMPREHENSIVE METABOLIC PANELLabRoutine Iron deficiency anemia secondary to blood loss (chronic) Expected: 05/08/2025 (Approximate), Expires: 04/03/2026IRON AND TIBCLabRoutine Iron deficiency anemia secondary to blood loss (chronic) Expected: 05/08/2025 (Approximate), Expires: 04/03/2026FERRITINLabRoutine Iron deficiency anemia secondary to blood loss (chronic) Expected: 05/08/2025 (Approximate), Expires: 04/03/2026VITAMIN K89MkoEjpunxl Iron deficiency anemia secondary to blood loss (chronic) Expected: 05/08/2025 (Approximate), Expires: 04/03/2026FOLATE, SERUMLabRoutine Iron deficiency anemia secondary to blood loss (chronic) Expected: 05/08/2025 (Approximate), Expires: 04/03/2026documented as of this encounter Visit Diagnoses Diagnosis Antiphospholipid antibody positive- Primary Other and unspecified nonspecific immunological findings Iron deficiency anemia secondary to blood loss (chronic) Primary hypercoagulable state (HCC) Primary hypercoagulable state CVA, old, speech/language deficit Speech and language deficit, unspecified, late effect of cerebrovascular disease Gestational diabetes mellitus (GDM) in third trimester, gestational diabetes method of control unspecified (HCC) History of hemorrhage Personal history of diseases of blood and blood-forming organs Other vitamin B12 deficiency anemia Diet controlled gestational diabetes mellitus (GDM) in third trimester (HCC) Antiphospholipid syndrome (HCC) Primary hypercoagulable state jail (current) use of anticoagulants Long-term (current) use of anticoagulants History of CVA (cerebrovascular accident) without residual deficits Transient ischemic attack (TIA), and cerebral infarction without residual deficits Encounter for supervision of high risk in third trimester, antepartum (HCC) documented in this encounter Care Teams Team MemberRelationshipSpecialtyStart DateEnd Date Evans Casas DO [address] [place] [address] PCP - GeneralFamily Dlufzsky34/3/22 Jonny Wilcox MD [address] [place] [address] Primary Staff PhysicianCardiology07/16/18 [place] [address] [place] [address] PhysicianHematology/Oncology09/14/21 Davida Restrepo, RN [address] [place] [id number] Specialty Care CoordinatorHematology/Oncology09/14/21documented as of this encounter
--- OUTSIDE RECORDS SUMMARY | 2025-04-07 13:30 | XMS_ITS | Encounter Summary ---
Author Organization [facility] tem Address [id number] [address] [place] [address] Care Team Providers Care Chemistry Quality Control Technician Name Role Phone Evans Casas DO Primary Care Provider [phone] Encounter Details DateTypeDepartmentCare Team (Latest Contact Info)Wvumhmkzcvx17/09/2025 1:30 PM ESTTelemedicine Maternal- Medicine at [facility] [address] [place] [phone] Daviad Smith PA-C [address] [address] Gestational diabetes mellitus (GDM) in third trimester controlled on oral hypoglycemic drug (Primary Dx) Social History Tobacco UseTypesPacks/DayYears UsedDateSmoking Tobacco: NeverSmokeless Tobacco: NeverAlcohol UseStandard Drinks/WeekCommentsNot Currently0 (1 standard drink = 0.6 oz pure alcohol)ChildcareAnswerDate AbyszrsfQmqugnuuqWevjjxr48/31/2019 EmploymentAnswerDate KmuvnegnPwkqwnlpxkJeytjii62/31/2019Hunger ScreeningAnswer Date RecordedWithin the past 12 months we worried whether our food would run out before we got money to buy more.Never True01/01/2025Within the past 12 months the food we bought just didn't last and we didn't have money to get more.Never True01/01/2025Purpose - LifeAnswerDate RecordedPurpose and direction in life Xzskfir37/11/2021Estimated Date of WfqnzszyUdyiiymdSzo17/05/2026ased on last menstrual period of 07/28/2024Sex and Gender InformationValueDate Recorded Sex Assigned at BirthNot on fileLegal AuyMzjhkb91/31/2019 12:25 PM EDTGender IdentityNot on fileSexual OrientationNot on filedocumented as of this encounter Progress Notes * Davida Smith PA-C - 04/07/2025 1:30 PM EST Maternal- Medicine Consultation VIDEO Patient is present at home , provider present at [facility] HISTORY OF PRESENT ILLNESS: Sanna Bone is [...] so she can have them done at [place] - Anatomy survey with MFM -followsup scheduled [...] done , plan to transition anticoagulation with information systems security specialist. Confirmed / discussed this plan with Dr [...] by e-mail to: or by fax to: [phone] Davida Smith PA-C Maternal- Medicine Office phone: [phone] Davida Smith PA-C 04/07/25 9777 documented in this encounter Plan of Treatment Not on file documented as of this encounter Visit Diagnoses Diagnosis Gestational diabetes mellitus (GDM) in third trimester controlled on oral hypoglycemic drug- Primary documented in this encounter Care Teams Team MemberRelationshipSpecialtyStart DateEnd Date Evans Casas DO PCP - GeneralFamily Medicine07/07/19documented as of this encounter
--- OUTSIDE RECORDS SUMMARY | 2025-04-08 13:40 | XMS_ITS | Encounter Summary ---
Author Organization [facility] Address [address] [place] [address] Care Team Providers Care Machine Operator Helper Name Role Phone Evans Casas MD Primary Care Provider [phone] Reason for Visit * ReasonCommentsRoutine Visit Encounter Details DateTypeDepartmentCare Team (Latest Contact Info)Gnqjdlkxvau46/10/2025 1:40 PM ESTRoutine [facility] [address] [place] [phone] Wilton Herrmann DO [address] [place], [place] [phone] 36 weeks gestation of ([facility]-H[facility]); Third trimester ([facility]-HCC); Anemia complicating childbirth ([facility]); Anticoagulant long-term use; Antiphospholipid antibody positive; Antiphospholipid antibody syndrome ([facility]); Thyroid disease Social History Tobacco UseTypesPacks/DayYears UsedDateSmoking Tobacco: NeverSmokeless Tobacco: NeverAlcohol UseStandard Drinks/WeekCommentsNever0 (1 standard drink = 0.6 oz pure alcohol)PHQ-2AnswerDate RecordedPatient Health Questionnaire-2 Score0 03/03/2025Estimated Date of JwijcuohXcthahigUto94/05/2026ased on last menstrual period of 07/28/2024Sex and Gender InformationValueDate RecordedSex Assigned at BirthNot on fileLegal CegVuxfec10/15/2023 11:19 PM EDTGender IdentityNot on fileSexual OrientationNot on filedocumented as of this encounter Last Filed Vital Signs Vital SignReadingTime TakenCommentsBlood Vlrnrvqc187/7812 2:05 PM EST Pulse--Temperature--Respiratory Rate--Oxygen Saturation--Inhaled Oxygen Concentration--Jzocdr17.7 kg (211 lb)04/08/2025 2:05 PM ESTHeight--Body Mass Index34.0607 1:48 PM EDTdocumented in this encounter Progress Notes * Celia Keith NP - 04/08/2025 1:40 PM EST Reason for Appointment: Patient ID: [...] [facility]) 06/05/2019 [facility] (current) use of antithrombotics/antiplatelets 02/05/2019 Migraine without aura and without status migrainosus, not intractable 09/12/2017 Morbid [place] 11/15/2023 Muscle fasciculation 08/19/2021 Nasal [...] drainage of cyst WISDOM TOOTH EXTRACTION 2007 [place] teeth REVIEW OF SYSTEMS Review of Systems: [...] nursing note reviewed. Exam conducted with a overhead crane inspector present. Vitals: Estimated body mass index is 34.06 kg/m?? as calculated from the following: Height as of 11/19/23: 5' 6 . Weight as of this encounter: 211 lb. BP: 120/78 Patient's last menstrual period was 07/28/2024. Assessment/Plan ICD-10-CM 1. 36 weeks gestation of ([facility]) Z3A.36 POCT urinalysis dipstick manually resulted 2. Third trimester ([facility]) Z34.93 POCT urinalysis dipstick manually resulted CULTURE, GROUP B STREP WITH SUSCEPTIBLITY CULTURE, GROUP B STREP WITH SUSCEPTIBLITY 3. Anemia complicating childbirth ([facility]) O99.02 4. Anticoagulant long-term use Z79.01 5. Antiphospholipid antibody positive R76.0 6. Antiphospholipid antibody syndrome ([facility]) D68.61 7. Thyroid disease E07.9 Assessment/Plan Return OB: Patient presents today for a routine obstetrics appointment. Patient is currently 36w2d . Patient states she is doing well but has complaints of being tired due to current . Patient has verbalizes frequent movement. labor precautions was discussed/given and patient was instructed to perform kick counts three times a day. Orders Placed This Encounter Procedures CULTURE, GROUP B STREP WITH SUSCEPTIBLITY POCT urinalysis dipstick manually resulted Follow Up: Patient to continue NST/ BPP. No longer Breech on exam and bedside ultrasound today. Reviewed plan with patient regarding the discontinuation of Lovenox prior to induction. Patient is to return to office in 1 week for routine OB appointment. Documented by Celia Keith NP on behalf of: Wilton Herrmann DO documented in this encounter Plan of Treatment NameTypePriorityAssociated DiagnosesOrder ScheduleCULTURE, GROUP B STREP WITH SUSCEPTIBLITYLabRoutine Third trimester ([facility]) Expected: 04/08/2025, Expires: 04/08/2026documented as of this encounter Procedures Procedure NamePriorityDate/TimeAssociated DiagnosisCommentsPOCT URINALYSIS LQXQAUVNEvpyina11/10/2025 2:12 PM EST 36 weeks gestation of ([facility]-HCC) Third trimester ([facility]-HCC) documented in this encounter Results * (ABNORMAL) POCT urinalysis dipstick manually resulted (04/08/2025 2:12 PM EST) ComponentValueRef RangeTest MethodAnalysis TimePerformed AtPathologist SignatureColor, UAYellowClarity, UAClearGlucose, UANegativeNegative - 1999(110) ++++ mg/dLBilirubin, UANegativeNegative - 4(70) +++ mg/dLKetones, UA PositiveNegative - 160(16) ++++ mg/dLSpec Grav, UA1.0101 - 1.03Blood, UA NegativeNegative - 50 Max/mcLpH, UA6.05 - 9Protein, UANegativeNegative - 2000(20) ++++ mg/dLUrobilinogen, UA1.00.2 - 12 mg/dLLeukocytes, UANegative Negative - 500+++ John/mcLNitrite, UANegativeNegative - PositiveSpecimen (Source)Anatomical Location / LateralityCollection Method / VolumeCollection TimeReceived RgoeBbrkd13/10/2025 2:12 PM EST Narrative Authorizing ProviderResult TypeResult StatusCorey Montez DOPOINT OF CARE TEST ENTER/EDIT ORDERABLESFinal Result documented in this encounter Visit Diagnoses Diagnosis 36 weeks gestation of (HHS-HCC) Third trimester ([facility]) state, incidental Anemia complicating childbirth ([facility]-HCC) Anticoagulant long-term use Encounter for long-term (current) use of anticoagulants Antiphospholipid antibody positive Other and unspecified nonspecific immunological findings Antiphospholipid antibody syndrome ([facility]) Primary hypercoagulable state Thyroid disease Unspecified disorder of thyroid documented in this encounter Care Teams Team MemberRelationshipSpecialtyStart DateEnd Evans Casas MD [address] [facility] [place] [address] PCP - GeneralFamily Medicine11/07/23documented as of this encounter
--- OUTSIDE RECORDS SUMMARY | 2025-04-15 13:50 | XMS_ITS | Encounter Summary ---
Author Organization [facility] Address [address] [place] [address] Care Team Providers Care Typing Secretary Name Role Phone Evans Casas MD Primary Care Provider [phone] Reason for Visit * ReasonCommentsRoutine Visit Encounter Details DateTypeDepartmentCare Team (Latest Contact Info)Rosxoikktbh62/17/2025 1:50 PM ESTRoutine [facility] [address] [place] [id number] Wilton Herrmann DO [address] [place], [place] [id number] Third trimester ([facility]); 37 weeks gestation of ([facility]) Social History Tobacco UseTypesPacks/DayYears UsedDateSmoking Tobacco: NeverSmokeless Tobacco: NeverAlcohol UseStandard Drinks/WeekCommentsNever0 (1 standard drink = 0.6 oz pure alcohol)PHQ-2AnswerDate RecordedPatient Health Questionnaire-2 Score0 03/03/2025Estimated Date of ZgeopnsdDbufpmzkHtq06/05/2026ased on last menstrual period of 07/28/2024Sex and Gender InformationValueDate RecordedSex Assigned at BirthNot on fileLegal NlrYpzqzh73/15/2023 11:19 PM EDTGender IdentityNot on fileSexual OrientationNot on filedocumented as of this encounter Last Filed Vital Signs Vital SignReadingTime TakenCommentsBlood Tznkhexr310/7404/15/2025 2:45 PM EST Pulse--Temperature--Respiratory Rate--Oxygen Saturation--Inhaled Oxygen Concentration--Nejtwu61.8 kg (209 lb)04/15/2025 2:45 PM ESTHeight--Body Mass Index33.7311/19/2023 1:48 PM EDTdocumented in this encounter Progress Notes * Wilton Herrmann, - 04/15/2025 1:50 PM EST Reason for Appointment: Patient ID: Sanna Bone is a 39 y.o. female who presents for Routine Visit Patient presents today for Return OB appointment. Current Medications: has a current medication list which includes the following prescription(s): alcohol prep pad, d-care glucometer, docusate sodium, lovenox, fluticasone, levothyroxine, metformin xr, multi-vitamin, andpolyethylene glycol (peg) 3350. Medical History: Active Ambulatory Problems Diagnosis Date Noted 32 weeks gestation of ([facility]) 11/28/2019 Abdominal pain 06/12/2023 Acute bronchitis due to infection 06/12/2023 Acute on chronic vesicular eczema of hands and feet 11/15/2023 Anemia complicating childbirth ([facility]) 01/16/2020 Anticoagulant long-term use 02/22/2020 Antiphospholipid antibody positive 09/10/2017 Antiphospholipid antibody syndrome ([facility]) 07/07/2019 Anxiety 06/12/2023 Blood pressure elevated without history of HTN 11/15/2023 BMI 37.0-37.9, adult 11/15/2023 Cerebral infarction, unspecified ([facility]) 05/16/2019 Cerebrovascular accident (CVA) due to stenosis of middle cerebral artery ([facility]) 02/22/2020 Cervicalgia 02/05/2019 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 ([facility]) 01/08/2020 Coagulation defect, unspecified ([facility]) 02/05/2019 Cold intolerance 11/15/2023 Deficiency of other specified B group vitamins 05/16/2019 Deviated septum 11/15/2023 Dizziness and giddiness 02/05/2019 Dry mouth 11/15/2023 Dysfunction of eustachian tube 06/12/2023 Dyspnea 06/12/2023 Elevated blood pressure reading 11/15/2023 Encounter for supervision of normal , unspecified, first trimester ([facility]) 05/29/2019 Environmental allergies 11/15/2023 Fatigue 12/29/2016 First degree perineal laceration during delivery ([facility]) 01/16/2020 Frequency of micturition 02/19/2019 Genitourinary symptoms 08/19/2021 Gestational diabetes mellitus (GDM), antepartum ([facility]) 01/26/2022 H/O: hypothyroidism 11/15/2023 Hematochezia 06/12/2023 [...] anemia 01/16/2020 Irregular uterine bleeding 11/15/2023 problem ([facility]) 06/12/2023 Less than 8 weeks gestation of ([facility]) 06/05/2019 buttermaker continuous churn (current) use of antithrombotics/antiplatelets 02/05/2019 Migraine without aura and without status migrainosus, not intractable 09/12/2017 Morbid obesity ([facility]) 11/15/2023 Muscle fasciculation 08/19/2021 Nasal polyps 11/15/2023 Non-smoker 11/15/2023 NEETA (obstructive sleep apnea) 11/15/2023 Other acute postprocedural pain 02/03/2019 Other general symptoms and signs 10/28/2019 Other immediate hemorrhage ([facility]) 01/16/2020 Other specified noninflammatory disorders of vagina 02/21/2019 Pain in joint 12/29/2016 Palpitations 08/26/2019 Paresthesia of bilateral legs 11/15/2023 Pelvic and perineal pain 02/01/2019 Personal history of urinary (tract) infections 01/16/2020 Pre-diabetes 11/15/2023 Primary hypercoagulable state ([facility]) 08/01/2022 Pruritus, unspecified 01/02/2020 Psychogenic hyperventilation 06/12/2023 Raised antibody titer 09/25/2017 Right lower quadrant pain 11/15/2023 Right otitis externa 11/15/2023 Salivary gland swelling 11/15/2023 Single live ([facility]) 01/15/2020 Snoring 11/15/2023 Speech and [...] age in second trimester ([facility]) 01/05/2025 Thyroid disease 01/05/2025 Resolved Ambulatory Problems Diagnosis Date Noted No Resolved Ambulatory Problems Past Medical History: Diagnosis Date AMA (advanced maternal age) multigravida 35+ ([facility]) Anemia Antiphospholipid syndrome ([facility]) Gestational diabetes ([facility]) Heartburn Hypothyroid Stroke ([facility]) Family History[1] Social History Tobacco Use Smoking status: Never Smokeless tobacco: Never Substance Use Topics Alcohol use: Never Drug use: Never Surgical History[2] Allergies[3] Review of Systems: Review of Systems Constitutional: Negative. HENT: Negative. Eyes: Negative. Respiratory: Negative. Cardiovascular: Negative. Gastrointestinal: Negative. Genitourinary: Negative. Musculoskeletal: Negative. Skin: Negative. Neurological: Negative. All other systems reviewed and are negative. Hematological: Negative. Endocrine: Negative. Allergic/Immunologic: Negative. Objective Physical Exam Constitutional: Appearance: Normal appearance. She [...] nursing note reviewed. Exam conducted with a lump inspector present. Vitals: Estimated body mass index is 33.73 kg/m?? as calculated from the following: Height as of 11/19/23: 5' 6 . Weight as of this encounter: 209 lb. BP: 116/74 Patient's last menstrual period was 07/28/2024. Assessment/Plan Encounter Diagnosis: ICD-10-CM 1. Third trimester ([facility]) Z34.93 2. 37 weeks gestation of ([facility]) Z3A.37 POCT urinalysis dipstick manually resulted Return OB: Patient presents today for a routine obstetrics appointment. Patient is currently 37w2d . Patient states she is doing well [...] week for routine OB appointment. Documented by Wilton Herrmann DO on behalf of: Wilton Herrmann DO [1] Family History Problem Relation Name Age of Onset Other (Cerebrovascular Accident) Father Diabetes Father Diabetes Sister Mental illness Maternal Grandmother Other (Heart problems) Maternal Grandfather Diabetes Paternal Grandmother Cancer Paternal Grandmother Cancer Paternal Grandfather Diabetes Paternal Grandfather [2] Past Surgical History: Procedure Laterality Date BREAST BIOPSY 2013 LAPAROSCOPY DIAGNOSTIC / BIOPSY / ASPIRATION / LYSIS 02/02/2019 Right Ovarian incision and drainage of cyst WISDOM TOOTH EXTRACTION 2007 Hector teeth [3] Allergies Allergen Reactions Ciprofloxacin GI intolerance Ciprofloxacin-Fluocinolone Pf Other Reaction(s): Other: See Comments Dizziness, weakness sweating Lactose Other Reaction(s): GI Disturbance, GI Upset Diarrhea Diarrhea Lactose Intolerance (Gi) Other Reaction(s): Illness Octacosanol Other Reaction(s): Other (See Comments) Other Other seasonal Other Reaction(s): Other (See Comments) documented in this encounter Plan of Treatment Not on file documented as of this encounter Procedures Procedure NamePriorityDate/TimeAssociated DiagnosisCommentsPOCT URINALYSIS KAUVXTFODxwvncs13/17/2025 2:45 PM EST 37 weeks gestation of ([facility]) documented in this encounter Results * (ABNORMAL) POCT urinalysis dipstick manually resulted (04/15/2025 2:45 PM EST) ComponentValueRef RangeTest MethodAnalysis TimePerformed AtPathologist SignatureColor, UAYellowClarity, UAClearGlucose, UANegativeNegative - 2000(110) ++++ mg/dLBilirubin, UANegativeNegative - 4(70) +++ mg/dLKetones, UA PositiveNegative - 160(16) ++++ mg/dLSpec Grav, UA1.0101 - 1.03Blood, UA NegativeNegative - 50 Max/mcLpH, UA6.55 - 9Protein, UANegativeNegative - 2000(20) ++++ mg/dLUrobilinogen, UA1.00.2 - 12 mg/dLLeukocytes, UANegative Negative - 500+++ John/mcLNitrite, UANegativeNegative - PositiveSpecimen (Source)Anatomical Location / LateralityCollection Method / VolumeCollection TimeReceived QxthXpfjc93/17/2025 2:45 PM EST Narrative Authorizing ProviderResult TypeResult StatusCorecarmen Herrmann DOPOINT OF CARE TEST ENTER/EDIT ORDERABLESFinal Result documented in this encounter Visit Diagnoses Diagnosis Third trimester ([facility]) state, incidental 37 weeks gestation of ([facility]) documented in this encounter Care Teams Team MemberRelationshipSpecialtyStart DateEnd Date Evans Casas MD [address] [place] [address] PCP - GeneralFamily Medicine11/07/23documented as of this encounter
--- OUTSIDE RECORDS SUMMARY | 2025-04-16 23:19 | XMS_ITS | Clinical Summary ---
Author Organization [facility] Address [address] [place] [address] Phone Care Team Providers Care Mining Professionals Name Role Phone Unavailable Primary Care Provider Unavailabl e Social History Tobacco UseTypesPacks/DayYears UsedDateSmoking Tobacco: Never Assessed CommentsUnknownSex and Gender InformationValueDate RecordedSex Assigned at Not on fileLegal PhqMkoztg92/26/2022 6:11 PM ESTGender IdentityNot on fileSexual OrientationNot on file Plan of Treatment Not on file
--- OUTSIDE RECORDS SUMMARY | 2025-04-16 23:19 | XMS_ITS | Encounter Summary ---
Author Organization [facility] Address [address] [place] [address] Care Team Providers Care Special Needs Babysitter Name Role Phone Evans Casas MD Primary Care Provider [phone] Encounter Details DateTypeDepartmentCare Team (Latest Contact Info)Cadttrqpium43/11/2025linisync Result Encounter [facility] Department Unsolicited Mya Herrmann, DO [address] [place], [place] [id number] Social History Tobacco UseTypesPacks/DayYears UsedDateSmoking Tobacco: NeverSmokeless Tobacco: NeverAlcohol UseStandard Drinks/WeekCommentsNever0 (1 standard drink = 0.6 oz pure alcohol)PHQ-2AnswerDate RecordedPatient Health Questionnaire-2 Score0 03/03/2025Estimated Date of GgupyipmZyeqaqamRvh40/05/2026ased on last menstrual period of 07/28/2024Sex and Gender InformationValueDate RecordedSex Assigned at BirthNot on fileLegal AnxJnmitk34/15/2023 11:19 PM EDTGender IdentityNot on fileSexual OrientationNot on filedocumented as of this encounter Plan of Treatment Not on file documented as of this encounter Procedures Procedure NamePriorityDate/TimeAssociated DiagnosisCommentsUS OB BPP W NON-LJVPKC6604/09/2025 10:07 PM EST documented in this encounter Results * US OB BPP W NON-STRESS (04/09/2025 10:07 PM EST)Anatomical Region LateralityModalityOtherSpecimen (Source)Anatomical Location / Laterality Collection Method / VolumeCollection TimeReceived Time04/09/2025 10:07 PM EST Narrative 04/09/2025 10:10 PM EST [facility] ?[address] ? [place] [address] ? Ultrasound Report ? Signed ? Patient: JUSTICE,SANNA S ?MR#: [id number] ?? : 1985 ?Acct:[id number] ?? Age/Sex: 39 / F ?ADM Date: 04/09/25 ?? Loc: US ? Attending Dr: Mya Herrmann D.O. ? Ordering Physician: Mya Herrmann D.O. ?? Date of Service: 04/09/25 ?? Procedure(s): US OB BPP w non-stress ?? Accession Number(s): [id number] ? cc: Mya Herrmann D.O.; Physician,Non-Staff Tamia ? [facility] ? [address] ? [place] [address] ? Patient Name: ?? SANNA RENDON ? MRN: [facility]:[id number] ? date: 1985 ?Sex: F ?? Assigned Patient Location: [facility] ?? Current Patient Location: ? Accession/Order Number: [id number] ?? Exam Date: 04/09/2025 ??19:15 ?Report Date: [...] Dictation Location: RADIO-PC-29 ? Electronically authenticated by: [id number] ??Y ?? Date: 04/09/2025 ??22:07 ? Dictated By: ?Mert Estrada M.D. ? Signed By: ?04/09/25 2210 ? DD/ 06 ? TD/TT: ? Hammer Mill Operator: Procedure Note Radiology, Radiologist, MD - 04/09/2025 [facility] [place] [id number] Ultrasound Report Signed Patient: SANNA RENDON SMR#: [id number] : 1985Acct:[id number] Age/Sex: 39 / FADM Date: 04/09/25 Loc: US Attending Dr: Mya Herrmann D.O. Ordering Physician: Mya Herrmann D.O. Date of Service: 04/09/25 Procedure(s): US OB BPP w non-stress Accession Number(s): [id number] cc: Mya Herrmann D.O.; Physician,Non-Staff Tamia [facility] [place] [id number] Patient Name: SANNA RENDON MRN: [id number] date: 1985 Sex: F Assigned Patient Location: [facility] Current Patient Location: Accession/Order Number: [id number] Exam Date: 04/09/2025 19:15 Report Date: 04/09/2025 22:07 At the request of: MYA HERRMANN DO Procedure: US OB BPP w non-stress Ultrasound biophysical profile INDICATION: Third trimester COMPARISON: 04/02/2025 FINDINGS AND IMPRESSION: Fetus in cephalic presentation. heart hqwk730 beats per minutes. SARAHI measuring 10.9 cm. Biophysical profile 8/8. Impression dictated by: Mert Estrada M.D. 04/09/2025 10:07 PM Dictation Location: [place] [address] Electronically authenticated by: [id number] Y Date: 2:07 Dictated By: Mert Estrada M.D. Signed By:04/09/252209 DD/ 06 TD/TT: Hammer Mill Operator: Authorizing ProviderResult TypeResult StatusCorey Montez DOCLINISYNC IMAGINGFinal Result documented in this encounter Visit Diagnoses Not on filedocumented in this encounter Care Teams Team MemberRelationshipSpecialtyStart DateEnd Date Evans Casas MD [address] [place] [address] [place] [address] PCP - GeneralFamily Medicine11/07/23documented as of this encounter
--- OUTSIDE RECORDS SUMMARY | 2025-04-16 23:19 | XMS_ITS | Clinical Summary ---
Author Organization [facility] Address [address] [place] [address] Care Team Providers Care Director Of Sports Performance Name Role Phone Unavailable Primary Care Provider Unavailabl e Social History Tobacco UseTypesPacks/DayYears UsedDateSmoking Tobacco: Never Assessed CommentsUnknownSex and Gender InformationValueDate RecordedSex Assigned at Not on fileLegal GmgYeadoh34/30/2022 12:25 AM EDTGender IdentityNot on file Sexual OrientationNot on file Plan of Treatment Not on file
--- OUTSIDE RECORDS SUMMARY | 2025-04-16 23:19 | XMS_ITS | Clinical Summary ---
Author Organization [facility] Address [address] [place] [address] Care Team Providers Care Dish Machine Operator Name Role Phone Evans Casas MD Primary Care Provider [phone] Allergies Active AllergyReactionsCriticalityNoted DateCommentsCiprofloxacinGI intolerance 04/19/2023iprofloxacin-Fluocinolone Pf05/19/2019 Other Reaction(s): Other: See Comments Dizziness, weakness sweating Nwvldqu1409/10/2017 Other Reaction(s): GI Disturbance, GI Upset Diarrhea Diarrhea Lactose Intolerance (Gi)11/15/2023 Other Reaction(s): Illness Jwppqcypggd44/06/2021 Other Reaction(s): Other (See Comments) PkupfYydkfUkq45/26/2018 seasonal Other Reaction(s): Other (See Comments) Medications MedicationSigDispense QuantityRefillsLast FilledStart DateEnd DateStatus Multiple Vitamin (Multi-Vitamin) tablet Take 1 tablet by mouth in the morning.Active levothyroxine (Synthroid) 25 MCG tablet Indications:Abnormal TSHTake 1 tablet (25 mcg) by mouth in the morning. Take before meals. 30 tablet 110//[id number]//6Active enoxaparin (Lovenox) 40 MG/0.4ML injection 1 (one) time each day at the same timeActive docusate sodium (Colace) 50 MG capsule Take 100 mg by mouth in the morning and 100 mg before bedtime.Active polyethylene glycol, PEG, 3350 (Glycolax) 17 GM/SCOOP powder Take 17 g by mouth DailyActive Alcohol Swabs (Alcohol Prep Pad) 70 % pads Indications:Second trimester ([facility]),13 weeks gestation of ([facility]),Multigravida of advanced maternal age in second trimester ([facility]), Gestational diabetes mellitus (GDM), antepartum, gestational diabetes method of control unspecified([facility]),Elevated glucose tolerance testApply 1 Pad topically Daily Use four times daily to check FSBS. 150 each 5Active Blood Glucose Monitoring Suppl ([employer] Glucometer) w/Device kit Indications:Second trimester ([facility]),13 weeks gestation of ([facility]),Multigravida of advanced maternal age in second trimester ([facility]), Gestational diabetes mellitus (GDM), antepartum, gestational diabetes method of control unspecified([facility]),Elevated glucose tolerance test1 kit Daily Use [...] (GDM), antepartum, gestational diabetes method of control unspecified([facility])Take 3 tablets (1,500 mg) by mouth in the evening. Take with meals Do not crush, chew, or split. 90 tablet 5Active Active Problems ProblemNoted DateDiagnosed DateH/O loss01/05/2025Multigravida of advanced maternal age in second trimester ([facility])01/05/2025Thyroid wiitxct7501/05/2025 Referred otalgia of right ear11/19/2023LPRD (laryngopharyngeal reflux disease) 11/19/2023cute on chronic vesicular eczema of hands and feet11/15/2023lood pressure elevated without history of HTN11/15/2023MI 37.0-37.9, adult11/15/2023 Cold gjafsjjxemh92/18/2024eviated pckkij6111/15/2023ry mouth11/15/2023Elevated blood pressure bwdzzrl5511/15/2023Environmental /18/2024H/O: lwmcroomymhofb06/18/2024History of hzbjkk4011/15/2023History of cerebrovascular /18/2024 Overview (11/15/2023): reported by pt - related to antiphospholipid syndrome History of COVID-19011/15/2023History of gestational qmjgwgoe42/18/2024History of kidney jgilqv7111/15/2023Hx of iron deficiency jrhehc4511/15/2023Immunization not carried out because of patient nmvdxpiu93/18/2024Iron /18/2024 Irregular uterine zfvaexvo50/18/2024Morbid xseppzt7911/15/2023Nasal polyps 11/15/2023Non-cueblk3711/15/2023OSA (obstructive sleep apnea)11/15/2023aresthesia of bilateral legs11/15/2023re-rfkxepho26/18/2024Right lower quadrant pain 4Right otitis mzkmiyw1811/15/2023Salivary gland tudzxuiv96/18/2024Snoring 11/15/2023bdominal pain4Acute bronchitis due to eovdmrkoc38/13/2024 Vjxftmo3506/12/2023ysfunction of eustachian tube06/12/20234209Urfzajo10/13/2024 Cxgjihssfldn33/13/2024Inhalation hxzare0606/12/2023Lactation problem ([facility]) 4Psychogenic anhaewbazqyrlzfs93/13/2024Suspected severe acute respiratory syndrome coronavirus 2 (SARS-CoV-2) qazatlgss32/13/2024Hypoglycemia 06/12/2023rimary hypercoagulable state ([facility])08/01/2022estational diabetes mellitus (GDM), antepartum ([facility])01/26/2022Genitourinary zfpheubh02/22/2022 Muscle mnwredqvddswv04/22/2022nticoagulant long-term use02/22/2020 Cerebrovascular accident (CVA) due to stenosis of middle cerebral artery 02/22/2020Anemia complicating childbirth ([facility])01/16/2020First degree perineal laceration during delivery ([facility])01/16/2020Acute posthemorrhagic ywmbky3001/16/2020Other immediate hemorrhage ([facility])01/16/2020 Personal history of urinary (tract) mzrndqbbwy20/18/2020Single live ([facility])01/15/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 ([facility])01/08/2020Pruritus, eiryrsbhjik91/04/2020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)12/30/201932 weeks gestation of ([facility])11/28/2019Thrombocytopenia, ewmgfocqjkw05/23/2020Other general symptoms and signs10/28/2019Urinary tract lagmyqsti73/18/2020 Usmcpooykkmh45/28/2020SVT (supraventricular tachycardia)08/26/2019 Antiphospholipid antibody syndrome ([facility])07/07/2019Other bacterial infections of unspecified site06/27/2019Less than 8 weeks gestation of ([facility]) 06/05/2019Encounter for supervision of normal , unspecified, first trimester ([facility])05/29/2019Cerebral infarction, ikjblxtjpbx87/17/2020 Deficiency of other specified B group crfdgyob06/17/1142Kbweuniljjbp92/17/2020 Unspecified condition associated with female genital organs and menstrual cycle 05/09/2019Other specified noninflammatory disorders of glxxti4202/21/2019Frequency of ivwjrlaafwj04/23/2019Unspecified ovarian cyst, right side02/06/2019 Awgxifsipaf75/09/2019Coagulation defect, unspecified ([facility])02/05/2019 Dizziness and lfmvoejaz48/09/2019Long term (current) use of antithrombotics/vixhjfwlvduvd79/09/2019Other acute postprocedural pain02/03/2019 Pelvic and perineal pain02/01/2019Syncope and rmwkeosm49/04/2019Raised antibody titer09/25/2017Migraine without aura and without status migrainosus, not mflntssrset45/16/2018Antiphospholipid antibody donbsbut01/14/2018Fatigue 12/29/2016Idiopathic progressive vckkqccurt56/01/2017Pain in joint12/29/2016 Estimated Date of DsqnrishHvjpznnbKcl49/05/2026Based on last menstrual period of 07/28/2024 Encounters DateTypeDepartmentCare OlhfRzrdkffurmj94/18/2025Telephone [facility] [place] [address] Mya Herrmann, DO 04/15/2025 1:50 PM ESTRoutine [facility] [place] [address] Mya Herrmann, DO Third trimester ([facility]); 37 weeks gestation of ([facility])04/15/2025bstract [facility] [place] [address] Mya Herrmann, DO 04/15/2025Telephone [facility] [place] [address] Petra Houston PA 04/13/2025External Result Encounter [facility] External Department Unsolicited Mya Herrmann, DO 5Clinisync Result Encounter NOMS External Department Unsolicited Mya Herrmann, DO 04/13/2025Telephone [facility] ROBBGYJuaquin [place] [address] Mya Herrmann, DO 5Clinisync Result Encounter [facility]OMS External Department Unsolicited Mya Herrmann, DO 04/08/2025 1:40 PM ESTRoutine [facility] [place] [address] Mya Herrmann, DO 36 weeks gestation of ([facility]); Third trimester ([facility]); Anemia complicating childbirth ([facility]); Anticoagulant long-term use; Antiphospholipid antibody positive; Antiphospholipid antibody syndrome ([facility]); Thyroid dgbnqee04/10/2025Clinisync Result Encounter NOMS External Department Unsolicited Mya Herrmann, DO 5Bamboo flowsheet [facility] [place] [facility] [address] [place] [address] Mya Herrmann, DO 5Abstract [facility] [address] [facility] [address] Mya Herrmann, DO 5Clinisync Result Encounter NOMS External Department Unsolicited Mya Herrmann, DO 03/25/2025 11:10 AM ESTRoutine [facility]BG[facility] [address] [place] [address] Mya Herrmann, DO Third trimester ([facility]); 34 weeks gestation of ([facility]); Anemia complicating childbirth ([facility]); Anticoagulant long-term use; Antiphospholipid antibody positive; Antiphospholipid antibody syndrome ([facility]); Thyroid ylkttvg5803/25/2025linisync Result Encounter [facility] External Department Unsolicited Mya Herrmann, DO 03/25/2025amboo flowsheet [facility] [address] [place] [address] Mya Herrmann, DO 5Abstract [facility] [address] [place] [address] Mya Herrmann, DO 03/19/2025linisync Result Encounter [facility] External Department Unsolicited Mya Herrmann, DO 03/19/2025linisync Result Encounter [facility] External Department Unsolicited Mya Herrmann, DO 03/13/2025linisync Result Encounter NOMS External Department Unsolicited Mya Herrmann, DO 03/10/2025 9:50 AM ESTRoutine [facility] [address] [place] [address] Mya Herrmann, DO 32 weeks gestation of ([facility]); Third trimester ([facility]); Anemia complicating childbirth ([facility]); Anticoagulant long-term use; Antiphospholipid antibody positive; Blood pressure elevated without history of HTN; Coagulation defect, unspecified ([facility]); Antiphospholipid antibody syndrome ([facility]); Thyroid disease; Multigravida of advanced maternal age in third trimester ([facility])03/10/2025 Bamboo flowsheet [facility] [place] [address] Mya Herrmann, DO 03/06/2025linisync Result Encounter [facility] External Department Unsolicited Mya Herrmann, DO 03/04/2025bstract [facility] [address] Mya Herrmann, DO 03/03/2025Patient Outreach [facility] [address] [place] [address] [place] [address] Petra Whitmore LPN 02/27/2025linisync Result Encounter NOMS External Department Unsolicited Mya Herrmann, DO 02/23/2025 9:00 AM EDTRoutine [facility] [address] Mya Herrmann, DO Third trimester ([facility]); 30 weeks gestation of ([facility])02/23/2025amboo flowsheet [facility] [place] [address] Mya Herrmann, DO 02/20/2025linisync Result Encounter [facility] External Department Unsolicited Mya Herrmann, DO 02/20/2025linisync Result Encounter [facility] External Department Unsolicited Mya Herrmann, DO 02/17/2025linisync Result Encounter [facility] External Department Unsolicited Mya Herrmann, DO 02/17/2025bstract NOMJaylan Borrero [facility] [address] Mya Herrmann, 02/09/2025 10:30 AM EDTRoutine [facility] [place] [facility] [address] [facility] [place] [address] Mya Herrmann, Third trimester ([facility]); 28 weeks gestation of ([facility]); Anemia complicating childbirth ([facility]); Anticoagulant long-term use; Antiphospholipid antibody positive; Blood pressure elevated without history of HTN; Coagulation defect, unspecified ([facility])02/09/2025bstract [facility] [address] [facility] [address] Mya Herrmann, 02/03/2025Patient Outreach [facility] [address] [place] [address] Petra Whitmore LPN 01/21/2025Telephone [facility] [place] [facility] [address] [facility] [address] Celia Keith NP 01/19/2025 9:00 AM EDTRoutine [facility] [address] [facility] [place] [address] Mya Herrmann, Second trimester ([facility]); 25 weeks gestation of ([facility]); Gestational diabetes mellitus (GDM), antepartum, gestational diabetes method of control unspecified([facility]); Anticoagulant long-term use; Antiphospholipid antibody positive; Antiphospholipid antibody syndrome ([facility])01/19/2025bstract [facility] [address] [facility] [address] Mya Herrmann DO 01/15/2025Telephone [facility] [place] [facility] [address] [address] Lala Hess MA from Last 3 Months Family History Medical HistoryRelationNameCommentsCerebrovascular AccidentFatherDiabetesFather Heart problemsMaternal GrandfatherMental illnessMaternal GrandmotherCancer Paternal GrandfatherDiabetesPaternal GrandfatherCancerPaternal Grandmother DiabetesPaternal GrandmotherDiabetesSisterRelationNameStatusCommentsFather Maternal GrandfatherMaternal GrandmotherPaternal GrandfatherPaternal Grandmother Sister Social History Tobacco UseTypesPacks/DayYears UsedDateSmoking Tobacco: NeverSmokeless Tobacco: Never Tobacco Cessation:Counseling Given: Not Answered Alcohol UseStandard Drinks/WeekCommentsNever0 (1 standard drink = 0.6 oz pure alcohol)PHQ-2AnswerDate RecordedPatient Health Questionnaire-2 Ztcfh10005/03/2024 Estimated Date of OsehnehuIxgmhvnuFsu38/05/2026ased on last menstrual period of 07/28/2024Sex and Gender InformationValueDate RecordedSex Assigned at BirthNot on fileLegal OlbGouyih78/15/2023 11:19 PM EDTGender IdentityNot on file Sexual OrientationNot on file Last Filed Vital Signs Vital SignReadingTime TakenCommentsBlood Kwewtior562/7404/15/2025 2:45 PM EST Pulse--Temperature--Respiratory Rate--Oxygen Saturation--Inhaled Oxygen Concentration--Wkabzz39.8 kg (209 lb)04/15/2025 2:45 PM ZLXUlxltd363.6 cm (5' 6 )11/19/2023 1:48 PM EDTBody Mass Index33.7311/19/2023 1:48 PM EDT Plan of Treatment Health MaintenanceDue DateLast DoneCommentsHPV/Pgctrp2610/22/2015COVID-19 Vaccine ( season)2024Influenza Vaccine (#1)2024ervical Cancer Cplrirpsn41/18/2025Pap Smear2Pneumococcal Vaccine: Pediatrics (0 to 5 Years) and At-Risk Patients (6 to 64 Years)Aged OutNo longer eligible based on patient's age to complete this topic Procedures Procedure NamePriorityDate/TimeAssociated DiagnosisCommentsPOCT URINALYSIS SUBQBFGMYyntunh61/17/2025 2:45 PM EST 37 weeks gestation of ([facility]) HPGAPQROWeyikog59/15/2025 3:30 PM EST URINE CULTURE - FYYEVxqjcld09/15/2025 3:25 PM EST [facility] UA (CLEAN/CATCH) STATOR TESTER/MICRO IF IND.Fkxtpod2704/13/2025 3:25 PM EST CULTURE, URINE, VJTEGREBnoeydv51/15/2025 3:25 PM EST US OB BPP W NON-PKNHCG3704/09/2025 10:07 PM EST POCT URINALYSIS QXMCCPPYTqaxorf02/10/2025 2:12 PM EST 36 weeks gestation of ([facility]) Third trimester ([facility]) ORGANISM TEDKLXSMCRBGVXHqnqfim03/10/2025 1:57 PM EST STREP GP B CULTURE+VJODZcynyis35/10/2025 1:57 PM EST US OB BPP W NON-LOHRJL2704/02/2025 8:01 PM EST US OB BPP W NON-VAELJP8903/25/2025 8:58 PM EST POCT URINALYSIS UVGGVYRBDtbfzly08/26/2025 11:31 AM EST Third trimester ([facility]) US OB BPP W NON-EIHJGN5803/19/2025 11:51 PM EST US OB APQNAH4803/19/2025 11:51 PM EST US OB BPP W NON-TIFTBQ4603/13/2025 7:55 AM EST POCT URINALYSIS RJYBLRRQZifruik57/11/2025 10:06 AM EST 32 weeks gestation of ([facility]) Third trimester ([facility]) US OB BPP W NON-XQEELW0103/06/2025 8:10 AM EST US OB BPP W NON-NEHJUW1402/27/2025 10:53 AM EDT POCT URINALYSIS DBHWGNGQSgyngkb89/27/2025 9:38 AM EDT 30 weeks gestation of ([facility]) US OB SOEDGS8002/20/2025 8:37 AM EDT US OB BPP W NON-WKTCFO5502/20/2025 8:37 AM EDT ALL THYROID STIM PFGTNRVGhvbwey51/21/2025 1:31 PM EDT ALL CBC WITH AUTO BVBUZsstjen43/21/2025 1:31 PM EDT POCT URINALYSIS OPYCCSTLEtgyrra58/13/2025 10:55 AM EDT 28 weeks gestation of ([facility]) POCT URINALYSIS VPEDLVVRKpjfofm79/22/2025 9:33 AM EDT Second trimester ([facility]) PAP ADCDNHirqpxd94/18/2022 12:00 AM EDTfrom Last 3 Months or [...] Location / LateralityCollection Method / VolumeCollection TimeReceived NcxdNznzz18/17/2025 2:45 PM EST Narrative Authorizing ProviderResult TypeResult StatusCorey Montez DOPOINT OF CARE TEST ENTER/EDIT ORDERABLESFinal Result * AMNISURE (04/13/2025 3:30 PM EST)ComponentValueRef RangeTest MethodAnalysis TimePerformed AtPathologist SignatureTBH AMNISURENEGATIVENEGATIVETBHSpecimen (Source)Anatomical Location / LateralityCollection Method / VolumeCollection TimeReceived Time04/13/2025 3:30 PM EST04/13/2025 3:44 PM EST Narrative [facility] - 04/13/2025 3:58 PM EST Authorizing ProviderResult TypeResult StatusCorey Montez DOLAB BLOOD ORDERABLES Final ResultPerforming OrganizationAddressCity/State/ZIP CodePhone Number [facility] * URINE CULTURE - [facility] (04/13/2025 [...] ELLIOTTISYFLORY [facility] * (ABNORMAL) [facility] UA (CLEAN/CATCH) STATOR TESTER/MICRO IF IND. (04/13/2025 3:25 PM EST) [...] ?2 Days 04/15/2025 12:13 PM [facility] CtrSpecimen (Source)Anatomical Location / LateralityCollection Method / VolumeCollection TimeReceived Time Clean-Voided Midstream (Clean Void Midstream)04/13/2025 3:25 PM EST04/13/2025 8:54 PM EST Narrative [facility] - 04/15/2025 12:13 PM EST Diagnosis: VAGINAL FLUID, LOWER BACK PAIN Comment: Authorizing ProviderResult TypeResult StatusCorey Montez DOLAB MICROBIOLOGY - GENERAL ORDERABLESFinal ResultPerforming OrganizationAddressCity/State/ZIP Code Phone Number [facility] [address] [place] [address], [facility] [address] [place] [address] * OB BPP W NON-STRESS (04/09/2025 10:07 PM EST) Only the most recent of8 resultswithin the time period is included. Anatomical RegionLateralityModalityOtherSpecimen (Source)Anatomical Location / LateralityCollection Method / VolumeCollection TimeReceived Time04/09/2025 10:07 PM EST Narrative 04/09/2025 10:10 PM EST [facility] ?[address] ? [place] [address] ? Ultrasound Report ? Signed ? Patient: JUSTICE,MADHU S ?MR#: [id number] ?? : 1985 ?Acct:[id number] ?? Age/Sex: 39 / F ?ADM Date: 04/09/25 ?? Loc: US ? Attending Dr: Mya Herrmann D.O. ? Ordering Physician: Mya Herrmann D.O. ?? Date of Service: 04/09/25 ?? Procedure(s): US OB BPP w non-stress ?? Accession Number(s): [id number] ? cc: Mya Herrmann D.O.; Physician,Non-Staff M.D. ? [facility] ? [address] ? [place] [address] ? Patient Name: ?? MADHU RENDON ? MRN: [facility]:[id number] ? date: 1985 ?Sex: F ?? Assigned Patient Location: [facility] ?? Current Patient Location: ? Accession/Order Number: [id number] ?? Exam Date: 04/09/2025 ??19:15 ?Report Date: 04/09/2025 ??22:07 ? At the request of: ?? MYA ??MONTEZ ??DO ? Procedure: ??US OB BPP w non-stress ? Ultrasound biophysical profile ? INDICATION: Third trimester ? COMPARISON: 04/02/2025 ? FINDINGS AND IMPRESSION: Fetus in cephalic presentation. ?? heart rate 167 ?? beats per minutes. ??SARAIH measuring 10.9 cm. ??Biophysical profile 12/05. ? Impression dictated by: Mert Estrada M.D. ??04/09/2025 10:07 PM ? Dictation Location: RADIO-PC-29 ? Electronically authenticated by: [id number] ??Y ?? Date: 04/09/2025 ??22:07 ? Dictated By: ?Mert Estrada M.D. ? Signed By: ?04/09/25 2210 ? DD/ ? TD/TT: ? Bundle Collector: Procedure Note Radiology, Radiologist, MD - 04/09/2025 [place] [address] Ultrasound Report Signed Patient: MADHU RENDON SMR#: [id number] : 1985Acct:[id number] Age/Sex: 39 / FADM Date: 04/09/25 Loc: US Attending Dr: Mya Herrmann D.O. Ordering Physician: Mya Herrmann D.O. Date of Service: 04/09/25 Procedure(s): US OB BPP w non-stress Accession Number(s): [id number] cc: Mya Herrmann D.O.; Physician,Non-Staff Tamia The [address] [address] Patient Name: MADHU RENDON MRN: [employer]:[id number] date: 1985 Sex: F Assigned Patient Location: [facility] Current Patient Location: Accession/Order Number: [id number] Exam Date: 04/09/2025 19:15 Report Date: 04/09/2025 22:07 At the request of: MYA HERRMANN DO Procedure: US OB BPP w non-stress Ultrasound biophysical profile INDICATION: Third trimester COMPARISON: 04/02/2025 FINDINGS AND IMPRESSION: Fetus in cephalic presentation. heart bzgk722 beats per minutes. SARAHI measuring 10.9 cm. Biophysical profile 12/05. Impression dictated by: Mert Estrada M.D. 04/09/2025 10:07 PM Dictation Location: [place] [address] Electronically authenticated by: [id number] Y Date: 2:07 Dictated By: Mert Estrada M.D. Signed By:04/09/252209 DD/ 06 TD/TT: Bundle Collector: Authorizing ProviderResult TypeResult StatusCorey Montez DOCLINISYNC [...] BLOOD ORDERABLES Final ResultPerforming OrganizationAddressCity/State/ZIP CodePhone Number [facility] * US OB GROWTH (03/19/2025 11:51 PM EST) Only the most recent of2 resultswithin the time period is included. Anatomical RegionLateralityModalityOtherSpecimen (Source)Anatomical Location / LateralityCollection Method / VolumeCollection TimeReceived Time03/19/2025 11:51 PM EST Narrative 03/19/2025 11:53 PM EST [facility] ?[address] ? [place] [address] ? Ultrasound Report ? Signed ? Patient: MADHU RENDON ?MR#: [id number] ?? : 1985 ?Acct:[id number] ?? Age/Sex: 39 / F ?ADM Date: 03/19/25 ?? Loc: US ? Attending Dr: Mya Herrmann D.O. ? Ordering Physician: Mya Herrmann D.O. ?? Date of Service: 03/19/25 ?? Procedure(s): US OB growth ?? Accession Number(s): [id number] ? cc: Mya Herrmann D.O.; Physician,Non-Staff M.D. ? [facility] ? [address] ? [place] [address] ? Patient Name: ?? MADHU RENDON ? MRN: [employer]:[id number] ? date: 1985 ?Sex: F ?? Assigned Patient Location: US ?? Current Patient Location: ? Accession/Order Number: [id number] ?? Exam Date: 03/19/2025 ??19:20 ?Report Date: [...] M.D. ??03/19/2025 11:51 PM ? Dictation Location: [facility] ? Electronically authenticated by: [id number] ??Y ?? Date: 03/19/2025 ??23:51 ? Dictated By: ?Robert Beltrán D.O. ? Signed By: ?03/19/25 2353 ? DD/ 2351 ? TD/TT: ? Bundle Collector: Procedure Note Radiology, Radiologist, MD - 03/19/[address] [address] Ultrasound Report Signed Patient: MADHU RENDON [facility]#: [id number] : 1985Acct:[id number] Age/Sex: 39 / FADM Date: 03/19/25 Loc: US Attending Dr: Mya Herrmann D.O. Ordering Physician: Mya Herrmann D.O. Date of Service: 03/19/25 Procedure(s): US OB growth Accession Number(s): [id number] cc: Mya Herrmann D.O.; Physician,Non-Staff Tamia The [place] [address] Patient Name: MADHU RENDON MRN: [employer]:[id number] date: 1985 Sex: F Assigned Patient Location: Current Patient Location: Accession/Order Number: [id number] Exam Date: 03/19/2025 19:20 Report Date: 03/19/2025 [...] Beltrán M.D. 03/19/2025 11:51 PM Dictation Location: [place] [address] Electronically authenticated by: [id number] Y Date: 3:51 Dictated By: Robert Beltrán D.O. Signed By:03/19/252352 DD/ 50 TD/TT: Bundle Collector: Authorizing ProviderResult TypeResult StatusCorey Montez DOCLINISYNC IMAGINGFinal Result * ALL THYROID STIM HORMONE (02/17/2025 1:31 PM EDT)ComponentValueRef RangeTest MethodAnalysis TimePerformed AtPathologist SignatureTHYROID STIMULATING HORMONE1.7450.358 - 3.740 uIU/mLTBHSpecimen (Source)Anatomical Location / LateralityCollection Method / VolumeCollection TimeReceived Time02/17/2025 1:31 PM EDT1 1:36 PM EDT Narrative [facility] - 02/17/2025 2:40 PM EDT Authorizing ProviderResult TypeResult StatusCorey Montez DOCLINISYNCFinal Result Performing OrganizationAddressCity/State/ZIP CodePhone Number [facility] * (ABNORMAL) ALL CBC WITH AUTO DIFF (02/17/2025 1:31 PM EDT)ComponentValueRef RangeTest MethodAnalysis TimePerformed AtPathologist SignatureTBH WBC9.64.0 - 11.0 10 3/uLTBHTBH RBC3.82(L)4.20 - 5.40 10 6/uLTBHTBH HGB12.112.0 - 16.0 g/dL TBHTBH HCT34.6(L)36.0 - 48.0 %TBHTBH MCV90.681.0 - 99.0 fLTBHTBH MCH31.726.7 - 34.0 pgTBHTBH MCHC35.029.9 - 35.2 g/dLTBHTBH RDW13.111.0 - 15.0 %TBHTBH ZAO864 150 - 450 10 3/uLTBHTBH MPV9.79.5 - [...] MemberRelationshipSpecialtyStart DateEnd Evans Casas MD [address] [place] [address] PCP - GeneralFami Medicine11/07/23
--- OUTSIDE RECORDS SUMMARY | 2025-04-16 23:19 | XMS_ITS | Encounter Summary ---
Author Organization [facility] Address [address] [place] [address] Care Team Providers Care Home Care Coordinator Name Role Phone Evans Casas MD Primary Care Provider [phone] Encounter Details DateTypeDepartmentCare Team (Latest Contact Info)Votzbghlaac03/15/2025linisync Result Encounter [facility] External Department Unsolicited Wilton Herrmann, DO [address] [facility] [address] [place], [place] [id number] Social History Tobacco UseTypesPacks/DayYears UsedDateSmoking Tobacco: NeverSmokeless Tobacco: NeverAlcohol UseStandard Drinks/WeekCommentsNever0 (1 standard drink = 0.6 oz pure alcohol)PHQ-2AnswerDate RecordedPatient Health Questionnaire-2 Score0 03/03/2025Estimated Date of OwhyqextKeopmusrNvz81/05/2026ased on last menstrual period of 07/28/2024Sex and Gender InformationValueDate RecordedSex Assigned at BirthNot on fileLegal BbeFpqeps94/15/2023 11:19 PM EDTGender IdentityNot on fileSexual OrientationNot on filedocumented as of this encounter Plan of Treatment Not on file documented as of this encounter Procedures Procedure NamePriorityDate/TimeAssociated DiagnosisCommentsAMNISURERoutine 04/13/2025 3:30 PM EST URINE CULTURE - IYJJEmlkiox19/15/2025 3:25 PM EST [facility] UA (CLEAN/CATCH) BRICKMASON APPRENTICE/MICRO IF IND.Lyrzarq3204/13/2025 3:25 PM EST documented in this encounter Results * AMNISURE (04/13/2025 3:30 PM EST)ComponentValueRef RangeTest MethodAnalysis TimePerformed AtPathologist SignatureTBH AMNISURENEGATIVENEGATIVETBHSpecimen (Source)Anatomical Location / LateralityCollection Method / VolumeCollection TimeReceived Time04/13/2025 3:30 PM EST04/13/2025 3:44 PM EST Narrative CLIN[facility]YNC - 04/13/2025 3:58 PM EST Authorizing ProviderResult TypeResult StatusCorey Montez DOLAB BLOOD ORDERABLES Final ResultPerforming OrganizationAddressCity/State/ZIP CodePhone Number [facility] * [facility] - [facility] (04/13/2025 3:25 [...] BLOOD ORDERABLES Final ResultPerforming OrganizationAddressCity/State/ZIP CodePhone Number [facility] * (ABNORMAL) [facility] UA (CLEAN/CATCH) BRICKMASON APPRENTICE/MICRO IF IND. (04/13/2025 3:25 PM EST) ComponentValueRef [...] DOCLINISYNCFinal Result Performing OrganizationAddressCity/State/ZIP CodePhone Number [facility] documented in this encounter Visit Diagnoses Not on filedocumented in this encounter Care Teams Team MemberRelationshipSpecialtyStart DateEnd Date Evans Casas MD [address] [facility] [place] [address] PCP - GeneralFamily Medicine11/07/23documented as of this encounter
--- OUTSIDE RECORDS SUMMARY | 2025-04-16 23:19 | XMS_ITS | Encounter Summary ---
Author Organization [facility] Address [address] [place] [address] Care Team Providers Care Mail Superintendent Name Role Phone Evans Casas MD Primary Care Provider [phone] Encounter Details DateTypeDepartmentCare Team (Latest Contact Info)Ltwczqjxepe91/07/2025bstract [facility] [address] [place] [address] Wilton Herrmann DO [address] [facility] [address] [facility] [address] [place], [place] [address] Social History Tobacco UseTypesPacks/DayYears UsedDateSmoking Tobacco: NeverSmokeless Tobacco: NeverAlcohol UseStandard Drinks/WeekCommentsNever0 (1 standard drink = 0.6 oz pure alcohol)PHQ-2AnswerDate RecordedPatient Health Questionnaire-2 Score0 03/03/2025Estimated Date of KsugrlxrDuxzcpxeJpo79/05/2026Based on last menstrual period of 07/28/2024Sex and Gender InformationValueDate RecordedSex Assigned at BirthNot on fileLegal McaBtngkt94/15/2023 11:19 PM EDTGender IdentityNot on fileSexual OrientationNot on filedocumented as of this encounter Plan of Treatment Not on file documented as of this encounter Visit Diagnoses Not on filedocumented in this encounter Care Teams Team MemberRelationshipSpecialtyStart DateEnd Date Evans Casas MD [address] [place] [address] PCP - GeneralFamily Medicine11/07/23documented as of this encounter
--- OUTSIDE RECORDS SUMMARY | 2025-04-16 23:19 | XMS_ITS | Encounter Summary ---
Author Organization [facility] Address [address], [address] [place] [address] Care Team Providers Care Chief Ultrasound Technologist Name Role Phone Evans Casas DO Primary Care Provider [phone] Encounter Details DateTypeDepartmentCare Team (Latest Contact Info)Cughvrlveux18/10/2025bstract [facility] Neurology [address] [place] [address] [address] [place] [address] Peng Osorio MD [address] [facility] [address] [place] [address] Social History Tobacco UseTypesPacks/DayYears UsedDateSmoking Tobacco: NeverSmokeless Tobacco: NeverAlcohol UseStandard Drinks/WeekCommentsNot Currently0 (1 standard drink = 0.6 oz pure alcohol)occasionallyCommentsNoSex and Gender Information ValueDate RecordedSex Assigned at BirthNot on fileLegal SgxAgfxxf63/14/2017 2:04 PM EDTGender IdentityNot on fileSexual OrientationNot on filedocumented as of this encounter Plan of Treatment DateTypeDepartmentCare Team (Latest Contact Info)Kfmsahydlfq54/25/2026 1:45 PM EDTOffice Visit [facility] Neurology [address] [place] [address] [address] [place] [address] Peng Osorio MD [address] [facility] [address] [place] [address] 6 MOS FUPdocumented as of this encounter Visit Diagnoses Not on filedocumented in this encounter Care Teams Team MemberRelationshipSpecialtyStart DateEnd Date Evans Casas DO [address] [place] [address] PCP - GeneralFamily Medicine10/04/20documented as of this encounter
--- OUTSIDE RECORDS SUMMARY | 2025-04-16 23:19 | XMS_ITS | Encounter Summary ---
Author Organization [facility] Address [address] [place] [address] Care Team Providers Care Gum Mixer Name Role Phone Evans Casas MD Primary Care Provider [phone] Encounter Details DateTypeDepartmentCare Team (Latest Contact Info)Ktwfudqrhrj02/17/2025bstract [facility] [address] [place] [address] Wilton Herrmann DO [address] [place], [place] [address] Social History Tobacco UseTypesPacks/DayYears UsedDateSmoking Tobacco: NeverSmokeless Tobacco: NeverAlcohol UseStandard Drinks/WeekCommentsNever0 (1 standard drink = 0.6 oz pure alcohol)PHQ-2AnswerDate RecordedPatient Health Questionnaire-2 Score0 03/03/2025Estimated Date of RozwfeaqSrnbvvzdTce69/05/2026Based on last menstrual period of 07/28/2024Sex and Gender InformationValueDate RecordedSex Assigned at BirthNot on fileLegal StgEcaarn20/15/2023 11:19 PM EDTGender IdentityNot on fileSexual OrientationNot on filedocumented as of this encounter Plan of Treatment Not on file documented as of this encounter Visit Diagnoses Not on filedocumented in this encounter Care Teams Team MemberRelationshipSpecialtyStart DateEnd Date Evans Casas MD [address] [place] [address] PCP - GeneralFamily Medicine11/07/23documented as of this encounter
--- OUTSIDE RECORDS SUMMARY | 2025-04-16 23:19 | XMS_ITS | Clinical Summary ---
Author Organization [facility] [place] [address] Care Team Providers Care Crop Scout Name Role Phone Adilson Gutierrez MD Primary [...] InformationValueDate RecordedSex Assigned at BirthNot on fileLegal FswZhzcmp62/27/2018 3:27 PM ESTGender Identity Not on fileSexual OrientationNot on fileOccupationIndustryJob Start DateJob End DateStay at home motherNot on fileNot on fileNot on file Last Filed Vital Signs Vital SignReadingTime TakenCommentsBlood Quxcytja579/6803 9:13 AM EDT Pulse--Temperature--Respiratory Rate--Oxygen Saturation--Inhaled Oxygen Concentration--Isivem61.5 kg (179 lb 9.6 oz)07/18/2017 9:13 AM IUPWgvzjz544.6 cm (5' 6 )07/18/2017 9:13 AM EDTBody [...] Teams Team MemberRelationshipSpecialtyStart DateEnd Adilson Gutierrez MD [address] [place] [phone] PCP - GeneralFamily Medicine07/19/17
--- OUTSIDE RECORDS SUMMARY | 2025-04-16 23:19 | XMS_ITS | Encounter Summary ---
Author Organization [facility] Address [address] [place] [address] [place] [address] Care Team Providers Care Development Eng Name Role Phone Evans Casas MD Primary Care Provider [phone] Encounter Details DateTypeDepartmentCare Team (Latest Contact Info)Zxlhdhijcnm80/10/2025amboo flowsheet [facility] [address] [place] [address] Wilton Herrmann DO [address] [facility] [address] [place], [place] [address] Social History Tobacco UseTypesPacks/DayYears UsedDateSmoking Tobacco: NeverSmokeless Tobacco: NeverAlcohol UseStandard Drinks/WeekCommentsNever0 (1 standard drink = 0.6 oz pure alcohol)PHQ-2AnswerDate RecordedPatient Health Questionnaire-2 Score0 03/03/2025Estimated Date of AwmvujldWwiopulbQvd48/05/2026Based on last menstrual period of 07/28/2024Sex and Gender InformationValueDate RecordedSex Assigned at BirthNot on fileLegal LspUshajb66/15/2023 11:19 PM EDTGender IdentityNot on fileSexual OrientationNot on filedocumented as of this encounter Plan of Treatment Not on file documented as of this encounter Visit Diagnoses Not on filedocumented in this encounter Care Teams Team MemberRelationshipSpecialtyStart DateEnd Date Evans Casas MD [address] [place] [address] PCP - GeneralFamily Medicine11/07/23documented as of this encounter
--- OUTSIDE RECORDS SUMMARY | 2025-04-16 23:19 | XMS_ITS | Encounter Summary ---
Author Organization [facility] Address [address] [place] [address] Care Team Providers Care Sign Fabricator Name Role Phone Evans Casas MD Primary Care Provider [phone] Encounter Details DateTypeDepartmentCare Team (Latest Contact Info)Rbqgyswuwjt06/18/2025Telephone [facility] [address] [place] [address] Wilton Herrmann DO [address], [facility] Social History Tobacco UseTypesPacks/DayYears UsedDateSmoking Tobacco: NeverSmokeless Tobacco: NeverAlcohol UseStandard Drinks/WeekCommentsNever0 (1 standard drink = 0.6 oz pure alcohol)PHQ-2AnswerDate RecordedPatient Health Questionnaire-2 Score0 03/03/2025Estimated Date of AjiiuxwzEuaecefvUqp52/05/2026ased on last menstrual period of 07/28/2024Sex and Gender InformationValueDate RecordedSex Assigned at BirthNot on fileLegal IkzMycmyd67/15/2023 11:19 PM EDTGender IdentityNot on fileSexual OrientationNot [...] MemberRelationshipSpecialtyStart DateEnd Date Evans Casas MD [address] [place] [address] PCP - GeneralFamily Medicine11/07/23documented as of this encounter
--- OUTSIDE RECORDS SUMMARY | 2025-04-16 23:19 | XMS_ITS | Encounter Summary ---
Author Organization [facility] Address [address] [place] [address] Care Team Providers Care Internist Medical Doctor Md Name Role Phone Jonny Wilcox MD Unavailable [phone] Cosmo Elliott MD Unavailable [phone] Davida Restrepo RN Unavailable [phone] Evans Casas DO Primary Care Provider [phone] Source Comments In the event this information is protected by the Federal Confidentiality of Alcohol and Drug AbusePatient Records regulations: The Federal rules restrict any use of the information to criminally investigate or prosecute any alcohol or drug abuse patient.[facility] Encounter Details DateTypeDepartmentCare Team (Latest Contact Info)Neeveklkmhu92/05/2025Travel Social History Tobacco UseTypesPacks/DayYears UsedDateSmoking Tobacco: NeverSmokeless Tobacco: NeverAlcohol UseStandard Drinks/WeekCommentsNo0 (1 standard drink = 0.6 oz pure alcohol)PHQ-2AnswerDate RecordedPHQ-2 jeier0924Area Deprivation Index AnswerDate RecordedNational Score (1-100), lower number is lower risk58 09/28/2022State Score (1-10), lower number is lower jmrl1673Data from: https://www.neighborhoodatlas.medicine.[facility].edu/. Last address used for [address]Estimated Date of DeliveryCommentsYes 07/28/2024Sex and Gender InformationValueDate RecordedSex Assigned at BirthNot on fileLegal WgtUduege99/29/2018 10:06 AM ESTGender IdentityNot on fileSexual OrientationNot on fileOccupationIndustryJob Start DateJob End Datestay at home momNot on fileNot on fileNot on filedocumented as of this encounter Plan of Treatment DateTypeDepartmentCare Team (Latest Contact Info)Supzblbikmr45/09/2026 9:30 AM ESTOffice Visit [facility] [address] [place] [address] lab in 5 weeks05/13/2025 5:00 PM [facility] Hematology/Oncology [address] [place] [address] Salvador Dos Santos MD [address] [place] [address] VV for lab resultsdocumented as of this encounter Visit Diagnoses Not on filedocumented in this encounter Care Teams Team MemberRelationshipSpecialtyStart DateEnd Date Evans Casas DO [address] [facility] [place] [address] PCP - GeneralFamily Uwpoubkc76/3/22 Jonny Wilcox MD [address] [facility] [place] [address] Primary Staff PhysicianCardiology07/16/18 [place] [address] [place] [address] PhysicianHematology/Oncology09/14/21 Davida Restrepo RN [address] [place] [address] Specialty Care CoordinatorHematology/Oncology09/14/21documented as of this encounter
--- OUTSIDE RECORDS SUMMARY | 2025-04-16 23:19 | XMS_ITS | Encounter Summary ---
Author Organization [facility] Address [address] [place] [address] Care Team Providers Care Manager Custom Name Role Phone Evans Casas MD Primary Care Provider Encounter Details DateTypeDepartmentCare Team (Latest Contact Info)Mzgsuhjnfor62/04/2025linisync Result Encounter [facility] External Department Unsolicited Mya Herrmann, DO [address] [facility] [address] [place], [place] [address] Social History Tobacco UseTypesPacks/DayYears UsedDateSmoking Tobacco: NeverSmokeless Tobacco: NeverAlcohol UseStandard Drinks/WeekCommentsNever0 (1 standard drink = 0.6 oz pure alcohol)PHQ-2AnswerDate RecordedPatient Health Questionnaire-2 Score0 03/03/2025Estimated Date of IgijxcodYmmeozxoJyp96/05/2026ased on last menstrual period of 07/28/2024Sex and Gender InformationValueDate RecordedSex Assigned at BirthNot on fileLegal MikPnodbq20/15/2023 11:19 PM EDTGender IdentityNot on fileSexual OrientationNot on filedocumented as of this encounter Plan of Treatment Not on file documented as of this encounter Procedures Procedure NamePriorityDate/TimeAssociated DiagnosisCommentsUS OB BPP W NON-VLOMBD2004/02/2025 8:01 PM EST documented in this encounter Results * US OB BPP W NON-STRESS (04/02/2025 8:01 PM EST)Anatomical Region LateralityModalityOtherSpecimen (Source)Anatomical Location / Laterality Collection Method / VolumeCollection TimeReceived Time04/02/2025 8:01 PM EST Narrative 04/02/2025 8:04 PM EST [facility] ?[address] ? [place] [address] ? Ultrasound Report ? Signed ? Patient: JUSTICE,SANNA S ?MR#: [id number] ?? : 1985 ?Acct:[id number] ?? Age/Sex: 39 / F ?ADM Date: 04/02/25 ?? Loc: [facility] ??250-1 ? Attending Dr: Mya Herrmann D.O. ? Ordering Physician: Mya Herrmann D.O. ?? Date of Service: 04/02/25 ?? Procedure(s): US OB BPP w non-stress ?? Accession Number(s): [id number] ? cc: Mya Herrmann D.O.; Physician,Non-Staff Tamia ? [facility] ? [address] ? [place] [address] ? Patient Name: ?? SANNA RENDON ? MRN: [facility]:[id number] ? date: 1985 ?Sex: F ?? Assigned Patient Location: [facility] ?? Current Patient Location: [facility] ?? Accession/Order Number: [id number] ?? Exam Date: 04/02/2025 ??19:15 ?Report Date: [...] Dictation Location: RADIO-PC-29 ? Electronically authenticated by: [id number] ??Y ?? Date: 04/02/2025 ??20:01 ? Dictated By: ?Mert Estrada M.D. ? Signed By: ?04/02/252003 ? DD/ 00 ? TD/TT: ? Professor Of Floriculture: Procedure Note Radiology, Radiologist, MD - 04/02/[address] [address] Ultrasound Report Signed Patient: SANNA RENDON SMR#: [id number] : 1985Acct:[id number] Age/Sex: 39 / FADM Date: 04/02/25 Loc: [facility] 250-[address]: Mya Herrmann D.O. Ordering Physician: Mya Herrmann D.O. Date of Service: 04/02/25 Procedure(s): US OB BPP w non-stress Accession Number(s): [id number] cc: Mya Herrmann D.O.; Physician,Non-Staff Tamia The [address] [address] Patient Name: SANNA RENDON MRN: [id number] date: 1985 Sex: F Assigned Patient Location: [facility] Current Patient Location: [facility] Accession/Order Number: [id number] Exam Date: 04/02/2025 19:15 Report Date: 04/02/2025 20:01 At the request of: MYA HERRMANN DO Procedure: US OB BPP w non-stress Ultrasound biophysical profile INDICATION: Gestational diabetes COMPARISON: 03/25/2025 FINDINGS AND IMPRESSION: Fetus in breech presentation. heart cneh839 beats per minutes. SARAHI measuring 14.1 cm. Biophysical profile 12/05. Impression dictated by: Mert Estrada M.D. 04/02/2025 8:01 PM Dictation Location: [place] [address] Electronically authenticated by: [id number] Y Date: 0:01 Dictated By: Mert Estrada M.D. Signed By:04/02/252003 DD/ 00 TD/TT: Professor Of Floriculture: Authorizing ProviderResult TypeResult StatusCorecarmen Herrmann DOCLINISYNC IMAGINGFinal Result documented in this encounter Visit Diagnoses Not on filedocumented in this encounter Care Teams Team MemberRelationshipSpecialtyStart DateEnd Date Evans Casas MD [address] [place] [address] [place] [address] [phone] (work) [facility]CP - [facility]11/07/23documented as of this encounter
--- OUTSIDE RECORDS SUMMARY | 2025-04-16 23:19 | XMS_ITS | Encounter Summary ---
Author Organization [facility] tem Address [facility] [place] [address] Care Team Providers Care Excel Analyst Name Role Phone Evans Casas DO Primary Care Provider [phone] Encounter Details DateTypeDepartmentCare Team (Latest Contact Info)Ovcglmgypnr09/09/2025Travel Social History Tobacco UseTypesPacks/DayYears UsedDateSmoking Tobacco: NeverSmokeless Tobacco: NeverAlcohol UseStandard Drinks/WeekCommentsNot Currently0 (1 standard drink = 0.6 oz pure alcohol)ChildcareAnswerDate NpjfhhusJvowcnznfXjzvcfw19/31/2019 EmploymentAnswerDate HfsgtgbqAjlykokcqvQnpaepk02/31/2019Hunger ScreeningAnswer Date RecordedWithin the past 12 months we worried whether our food would run out before we got money to buy more.Never True01/01/2025Within the past 12 months the food we bought just didn't last and we didn't have money to get more.Never True01/01/2025Purpose - LifeAnswerDate RecordedPurpose and direction in life Alsthcj73/11/2021Estimated Date of BjrwqkcrUuffojiuLwo73/05/2026Based on last menstrual period of 07/28/2024Sex and Gender InformationValueDate Recorded Sex Assigned at BirthNot on fileLegal OlsTcrwoa80/31/2019 12:25 PM EDTGender IdentityNot on fileSexual OrientationNot on filedocumented as of this encounter Plan of Treatment Not on file documented as of this encounter Visit Diagnoses Not on filedocumented in this encounter Care Teams Team MemberRelationshipSpecialtyStart DateEnd Date Evans Casas DO PCP - GeneralFamily Medicine07/07/19documented as of this encounter
--- OUTSIDE RECORDS SUMMARY | 2025-04-16 23:19 | XMS_ITS | Encounter Summary ---
Author Organization [facility] Address [address] [place] [address] Care Team Providers Care Underliner Name Role Phone Evans Casas MD Primary Care Provider [phone] Encounter Details DateTypeDepartmentCare Team (Latest Contact Info)Bzoslnaouev12/15/2025Telephone [facility] [address] [place] [address] Wilton Herrmann DO [address] [facility] [address], [facility]11 Social History Tobacco UseTypesPacks/DayYears UsedDateSmoking Tobacco: NeverSmokeless Tobacco: NeverAlcohol UseStandard Drinks/WeekCommentsNever0 (1 standard drink = 0.6 oz pure alcohol)PHQ-2AnswerDate RecordedPatient Health Questionnaire-2 Score0 03/03/2025Estimated Date of MgzdyouxCfuwvjnyXld38/05/2026ased on last menstrual period of 07/28/2024Sex and Gender InformationValueDate RecordedSex Assigned at BirthNot on fileLegal IzvXojrss76/15/2023 11:19 PM EDTGender IdentityNot on fileSexual OrientationNot [...] call me back. My phone number is [phone]. Thank you, ashleye. Patient not sure it [...] contractions. Patient was advised to go to [facility]. Called talked to Yesi and she states that patient did call there and she was advised to call office but that we would probably have her go over. documented in this encounter Plan of Treatment Not on file documented as of this encounter Visit Diagnoses Not on filedocumented in this encounter Care Teams Team MemberRelationshipSpecialtyStart DateEnd Date Evans Casas MD [address] [place] [address] PCP - GeneralFamily Medicine11/07/23documented as of this encounter
--- OUTSIDE RECORDS SUMMARY | 2025-04-16 23:19 | XMS_ITS | Encounter Summary ---
Author Organization [facility] Address [address] [place] [address] Care Team Providers Care Travertine Installer Name Role Phone Evans Casas MD Primary Care Provider [phone] Encounter Details DateTypeDepartmentCare Team (Latest Contact Info)Cwdwjthihbh22/17/2025Telephone [facility] [address] [place] [address] Petra Houston PA [address] [place], [facility]11 Social History Tobacco UseTypesPacks/DayYears UsedDateSmoking Tobacco: NeverSmokeless Tobacco: NeverAlcohol UseStandard Drinks/WeekCommentsNever0 (1 standard drink = 0.6 oz pure alcohol)PHQ-2AnswerDate RecordedPatient Health Questionnaire-2 Score0 03/03/2025Estimated Date of KyklalcfIavmxtvoGft96/05/2026Based on last menstrual period of 07/28/2024Sex and Gender InformationValueDate RecordedSex Assigned at BirthNot on fileLegal QxfDfvozm19/15/2023 11:19 PM EDTGender IdentityNot on fileSexual OrientationNot [...] Call me back, my phone number is [phone], thank you. Like. Patient was called and she states that she is having some burning pain around tailbone into hip andthen into front. Feels like Dallam castellanos tightening when walking and moving around. [...] Team MemberRelationshipSpecialtyStart DateEnd Date Evans Casas MD [address] [place], [place] [address] [address] PCP - GeneralFamily Medicine11/07/23documented as of this encounter
--- OUTSIDE RECORDS SUMMARY | 2025-04-16 23:19 | XMS_ITS | Encounter Summary ---
Author Organization [facility] Address [address] [place] [address] Care Team Providers Care Acid Leveler Name Role Phone Evans Casas MD Primary Care Provider [phone] Encounter Details DateTypeDepartmentCare Team (Latest Contact Info)Swykngybxmj13/10/2025linisync Result Encounter [facility] External Department Unsolicited Wilton Herrmann, DO [address] [place], [place] [id number] Social History Tobacco UseTypesPacks/DayYears UsedDateSmoking Tobacco: NeverSmokeless Tobacco: NeverAlcohol UseStandard Drinks/WeekCommentsNever0 (1 standard drink = 0.6 oz pure alcohol)PHQ-2AnswerDate RecordedPatient Health Questionnaire-2 Score0 03/03/2025Estimated Date of DtzznlddIdrjqkyzCpk28/05/2026ased on last menstrual period of 07/28/2024Sex and Gender InformationValueDate RecordedSex Assigned at BirthNot on fileLegal ZmwIpcyki60/15/2023 11:19 PM EDTGender IdentityNot on fileSexual OrientationNot on filedocumented as of this encounter Plan of Treatment Not on file documented as of this encounter Procedures Procedure NamePriorityDate/TimeAssociated DiagnosisCommentsORGANISM IWGLPTKFXTOXIMTynytby45/10/2025 1:57 PM EST STREP GP B CULTURE+FFYUMuvljzw97/10/2025 1:57 PM EST documented in this encounter [...] BLOOD ORDERABLES Final ResultPerforming OrganizationAddressCity/State/ZIP CodePhone Number [facility] documented in this encounter Visit Diagnoses Not on filedocumented in this encounter Care Teams Team MemberRelationshipSpecialtyStart DateEnd Date Evans Casas MD [address] [place] [address] PCP - GeneralFamily Medicine11/07/23documented as of this encounter
--- OUTSIDE RECORDS SUMMARY | 2025-04-16 23:19 | XMS_ITS | Encounter Summary ---
Author Organization [facility] Address [address] [place] [address] Care Team Providers Care Leasing Consultant Name Role Phone Evans Casas MD Primary Care Provider [phone] Encounter Details DateTypeDepartmentCare Team (Latest Contact Info)Nedptwgftkf03/15/2025External Result Encounter [facility] External Department Unsolicited Wilton Herrmann, DO [address] [place], [place] [id number] Social History Tobacco UseTypesPacks/DayYears UsedDateSmoking Tobacco: NeverSmokeless Tobacco: NeverAlcohol UseStandard Drinks/WeekCommentsNever0 (1 standard drink = 0.6 oz pure alcohol)PHQ-2AnswerDate RecordedPatient Health Questionnaire-2 Score0 03/03/2025Estimated Date of PcrwsxftOjeooacgPej62/05/2026ased on last menstrual period of 07/28/2024Sex and Gender InformationValueDate RecordedSex Assigned at BirthNot on fileLegal BshKvwoey72/15/2023 11:19 PM EDTGender IdentityNot on fileSexual OrientationNot on filedocumented as of this encounter Plan of Treatment Not on file documented as of this encounter Procedures Procedure NamePriorityDate/TimeAssociated DiagnosisCommentsCULTURE, URINE, ZVAZPUHMdukmws03/15/2025 3:25 PM EST documented in this encounter Results * Urine culture (04/13/2025 3:25 PM EST)ComponentValueRef RangeTest Method Analysis TimePerformed AtPathologist SignatureFRMC NOTE?20,000 colonies/ml mixed ?bacterial skin contaminants ?2 Days 04/15/2025 12:13 PM [facility] CtrSpecimen (Source)Anatomical Location / LateralityCollection Method / VolumeCollection TimeReceived Time Clean-Voided Midstream (Clean Void Midstream)04/13/2025 3:25 PM EST04/13/2025 8:54 PM EST [facility] - 04/15/2025 12:13 PM EST Diagnosis: VAGINAL FLUID, LOWER BACK PAIN Comment: Authorizing ProviderResult TypeResult StatusCorey Montez DOLAB MICROBIOLOGY - GENERAL ORDERABLESFinal ResultPerforming OrganizationAddressCity/State/[facility] Code Phone Number [facility] [address] [place] [address], [facility] [address] [place] [address] documented in this encounter Visit Diagnoses Not on filedocumented in this encounter Care Teams Team MemberRelationshipSpecialtyStart DateEnd Date Evans Casas MD [address] [place] [address] PCP - GeneralFamily Medicine11/07/23documented as of this encounter
--- OUTSIDE RECORDS SUMMARY | 2025-04-16 23:20 | XMS_ITS | Clinical Summary ---
Author Organization [facility] Address [address], [address] [place] [address] Care Team Providers Care Molder Vacuum Name Role Phone Evans Casas DO Primary Care Provider [phone] Allergies Active AllergyReactionsCriticalityNoted DateCommentsCiprofloxacinOther (See Comments)06/19/2019Ciprofloxacin-Fluocinolone PfOther [...] elevated without history of HTN12/11/2023ry mouth 12/11/2023Environmental uzgtofkdh99/13/2024H/O: opfclzurdokgnr25/13/2024History of hprpok3912/11/2023History of gestational tuwntthl99/13/2024History of kidney jjckpi3112/11/2023Hx of iron deficiency zgtcct8812/11/2023Immunization not carried out because of patient utvjsnxx34/13/2024Morbid snhelja8712/11/2023Non-smoker 12/11/2023OSA (obstructive sleep apnea)12/11/2023ight otitis ndkdouf2512/11/2023 Abdominal pain06/12/2023cute bronchitis due to igljujbwb34/13/2024nxiety 06/12/2023ysfunction of eustachian tube06/12/20234696Prwbnhe40/13/2024Hematochezia 06/12/2023History of severe acute respiratory syndrome coronavirus 2 (SARS-CoV-2) kmiedxr5306/12/20239820Abvbohlqmeun51/13/2024Inhalation nfivxo6906/12/2023 wgfrrjm5006/12/2023sychogenic ssohfblmkehsnvjh97/13/2024Suspected severe acute respiratory syndrome coronavirus 2 (SARS-CoV-2) xgvnavhwv77/13/2024 Primary hypercoagulable state08/01/2022estational diabetes mellitus in , unspecified qhwgtnh5101/26/2022Genitourinary dmebquyf85/22/2022Muscle bfeghvtkqmdel20/22/2022TIA (transient ischemic attack)06/16/2020erebrovascular accident (CVA) due to stenosis of middle cerebral ihfyma7202/22/2020Anticoagulant long-term use02/22/2020Acute posthemorrhagic juzjkw6201/16/202039 weeks gestation of upkkooivq19/18/2020Anemia complicating /18/2020Endocrine, nutritional and metabolic diseases complicating luvglhydxh23/18/2020First degree perineal laceration during jnstextv42/18/2020Other immediate ugzrwbvwek94/18/2020Personal history of transient ischemic attack (TIA), and cerebral infarction without residual /18/2020Personal history of urinary (tract) reabxnyjoo03/18/2020Single live birth01/15/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01/08/202038 weeks gestation of /09/2020Pruritus, wbipfimvswr99/04/202037 weeks gestation of tlybifrxa91/04/629983 weeks gestation of bqbaqobtu14/01/2020Other speech and language deficits following cerebral /01/2020Other diseases of the blood and blood-forming organs and certain disorders involving the immune mech anism complicating nhudhlzxie15/25/968848 weeks gestation of hbxedrfvr34/24/2020 34 weeks gestation of xsvtszbiv10/18/991358 weeks gestation of 12/10/201932 weeks gestation of ejlblnefa09/31/2020Thrombocytopenia, unspecified 11/20/2019Other general symptoms and signs10/28/2019Urinary tract infection, site not nahpxphib01/18/4438Okrxezzlpell77/28/2020SVT (supraventricular tachycardia)08/26/2019Antiphospholipid antibody uvugmbpv81/09/2020Other bacterial infections of unspecified site06/27/2019Less than 8 weeks gestation of /06/2020Encounter for supervision of normal , unspecified, first cmvahiynv23/30/0357Kuqywdzesvke59/17/2020Cerebral infarction, unspecified 05/16/2019Paresthesia of skin05/16/2019Deficiency of other specified B group oqdqtlwq06/17/2020Hypothyroidism, utnfwuomsgj13/17/2020Unspecified condition associated with female genital organs and menstrual cycle05/09/2019Vomiting of , dffjjfgnsix45/06/2020Other specified noninflammatory disorders of fzcndy3102/21/2019Frequency of pgesrxioavg07/23/2019Unspecified ovarian cyst, right side02/06/2019Coagulation defect, waocknihvch05/09/2019Cervicalgia 02/05/2019Long term (current) use of antithrombotics/wqyruwetbuzzr03/09/2019 Dizziness and peuevkuoy47/09/2019Other acute postprocedural pain02/03/2019Pelvic and perineal pain02/01/2019Syncope and igyjpnhj65/04/2019Anticardiolipin antibody /29/2018Migraine without aura and without status migrainosus, not qcsqufmsifc41/16/2018Antiphospholipid antibody pvettpiv10/14/2018Pain in joint12/29/20162563Xzpbupf15/01/2017Idiopathic progressive oxvqbwcaxk67/01/2017 Resolved Problems ProblemNoted DateDiagnosed DateResolved ExotKaqwd70/ Encounters DateTypeDepartmentCare OkgzZzlnvqdqulm74/10/2025bstract [facility] [address] [place] [address] [address] [place] [address] Peng Osorio MD 01/21/2025 2:30 PM EDTOffice Visit [facility] [address] [place] [address] [address] [place] [address] Peng Osorio MD Antiphospholipid antibody syndrome (Primary [...] InformationValueDate RecordedSex Assigned at BirthNot on fileLegal RpfJxfhhd17/14/2017 2:04 PM EDT Gender IdentityNot on fileSexual OrientationNot on file Last Filed Vital Signs Vital SignReadingTime TakenCommentsBlood Lfpqokpv108/6409 2:40 PM EDT Mdmkm1362 2:40 PM BXWPtsswikgfmj99.2 ??C (97.2 ??F)02/09/2022 11:22 AM EDTRespiratory Jbqh3173 11:22 AM EDTOxygen Knygfreljm40%10/04/2020 2:01 PM EDTInhaled Oxygen Concentration--Cgeull98.8 kg (209 lb)01/21/2025 2:40 PM EDT Esbxgz292.6 cm (5' 6 )02/09/2022 11:22 AM EDTBody Mass Index33.7302/09/2022 11:22 AM EDT Plan of Treatment DateTypeDepartmentCare Team (Latest Contact Info)Vsacgtnghuq00/25/2026 1:45 PM EDTOffice Visit [facility] [address] [place] [address] Peng Osorio MD [address] [place], [place] [address] [place] [address] 6 [address] FUPHealth MaintenanceDue DateLast DoneCommentsDepression Hlehds5210/21/1997 Varicella vaccine (1 of 2 - 13+ 2-dose series)1998Hepatitis C screen 10/22/2003Hepatitis B vaccine (1 of 3 - 19+ 3-dose series)2004Pap smear 2006Cervical cancer phpefu2410/22/2015HPV (without or with Pap)10/22/2015 DTaP/Tdap/Td vaccine (2 [...] Procedure NamePriorityDate/TimeAssociated DiagnosisCommentsHIV-1,-2 W/REFLEX TO HIV-1 WESTERN SKYNYdvvsdh16/01/2017 11:49 AM EDT Arthralgia, unspecified joint Fatigue, unspecified type Sensation disorder from Last 3 Months or Most Recently Relevant to Health Maintenance Results * Hiv-1,-2 W/Reflex To Hiv-1 Western Blot (12/29/2016 11:49 AM EDT)Component ValueRef RangeTest MethodAnalysis TimePerformed AtPathologist Signature HIV-1/HIV-2 ZyQnxdnodpUpaxskmp17/03/2017 12:03 AM [facility]TMER[facility] Comment: Based on the non-reactive anti-HIV (BRENDEN) screen, the HIV Western blot is not indicated and therefore not performed. INTERPRETIVE INFORMATION: HIV-1,-2 w/Reflex to HIV-1 Western Blot This assay should not be used for blood donor screening, associated re-entry protocols, or for screening Human Cells, Tissues and Cellular and Tissue-Based Products (HCT/P). Performed by [facility], [address] [place] [id number] [email or web address], Zhang Bledsoe MD - Lab. Director Specimen (Source)Anatomical Location / LateralityCollection Method / Volume Collection TimeReceived TimeBLOOD SPECIMEN / Cbevrxa2112/29/2016 11:49 AM EDT 12/29/2016 1:50 PM EDT Narrative Authorizing ProviderResult TypeResult StatusRita Cecily Monroe MDHEMATOLOGY ORDERABLES Final ResultPerforming OrganizationAddressCity/State/ZIP CodePhone Number [facility] [address] [place], [place] [address] [phone] from Last 3 Months or Most Recently Relevant to Health Maintenance Insurance Care Teams Team MemberRelationshipSpecialtyStart DateEnd Date Evans Casas DO [facility] [place][note 2] [place] [address] [facility]10/04/20
--- OUTSIDE RECORDS SUMMARY | 2025-04-16 23:20 | XMS_ITS | Clinical Summary ---
Author Organization [employer] [facility] Address [id number] [place] [address] Care Team Providers Care Licensed Mental Health Counselor Name Role Phone Evans Casas DO Primary Care Provider [phone] Allergies Active AllergyReactionsCriticalityNoted DateCommentsCiprofloxacinDizziness 06/19/2019LactalbuminOther (See Comments)Low05/25/2017 Other reaction(s): GI Upset Crampy and gassy LactoseGI Yytziyhgtla25/14/2018 Diarrhea Milk Containing Products (Dairy)Other (See Comments)Low05/25/2017 [...] in third trimester controlled on oral hypoglycemic drug12/17/20249190Tnbntb94/08/2025MA (advanced maternal age) multigravida 35+11/04/2024ntiphospholipid syndrome 11/04/20240823Kskcjbivdyx00/08/3616Mvpmwm10/08/2025ntiphospholipid syndrome complicating , piofzlllsx96/09/2020Estimated Date of Delivery IxarxxzvMvd48/05/2026Based on last menstrual period of 07/28/2024 Resolved Problems ProblemNoted DateDiagnosed DateResolved DateCerebral infarction, unspecified Migraine without aura and without status migrainosus, not xwugpnnmzne98 Encounters DateTypeDepartmentCare OkehSqzvwlnrzui09/09/2025 1:30 PM ESTTelemedicine [facility] at [place] [address] [place] [address] Davida Smith PA-C Gestational diabetes mellitus (GDM) in third trimester controlled on oral hypoglycemic drug (Primary Dx)04/07/20259607Zybzng75/18/2025 2:00 PM ESTTelemedicine [facility] Department of [address] [address] Sam Callahan MD MPH Antiphospholipid syndrome complicating , antepartum (Primary Dx); Antiphospholipid syndrome; History of CVA (cerebrovascular accident); Coordination of complex care; 33 weeks gestation of uvfgxudis15/18/2025Orders Only [facility] Department of [address] [address] Ref Prov, Not In System 03/17/20253245Gcvusv66/12/2025 9:45 AM ESTTelemedicine Maternal- Medicine at [address] [address] Sana Palma MD Khurshid, Nauman, MD Gestational diabetes mellitus (GDM) in second trimester controlled on oral hypoglycemic drug (Primary Dx); Antiphospholipid /12/0692Gtgbao54/07/4363Cbrcup96/23/2025Orders Only [facility] Department of [address] [address] Ref Prov, Not In System 02/18/2025Orders Only [facility] Department of [address] [address] Ref Prov, Not In System 02/16/2025 1:45 PM EDTOffice Visit [facility] Department of [facility] [address] [phone] Sam Callahan MD MPH Antiphospholipid syndrome (Primary Dx); Antiphospholipid syndrome complicating , antepartum; History of CVA (cerebrovascular accident); Coordination of complex care; 29 weeks gestation of afshqxhdw34/20/1637Xaoroe52/14/2025Telephone [facility] at [place] [address] [place] [address] Annita Kendall LD 02/06/2025 2:00 PM EDTTelemedicine [facility]aternal[facility] at [place] [address] [place] [address] Wilfrid Medina MD 27 weeks gestation of (Primary Dx); Multigravida of advanced maternal age in third trimester; Gestational diabetes mellitus (GDM) in second trimester controlled on oral hypoglycemic drug; Antiphospholipid syndrome complicating , antepartum; Antiphospholipid chgpnuzs22/10/2504Vghnwr92/09/2025Travelfrom Last 3 Months Family History Medical MhtrpvcHebblgnjKxbeChuvqjozEvwwyedtFemttaF2HCPbqhmrVcqhxcNckkpd illness Maternal GrandmotherCancerPaternal GrandfatherDiabetesPaternal UinbhymlvqwW8SZ CancerPaternal GrandmotherDiabetesPaternal FckpksxwtwzT9YWDbztwfciCuyyzxB8YO RelationNameStatusCommentsFatherDeceasedMaternal GrandmotherPaternal Grandfather Paternal GrandmotherSister Social History Tobacco UseTypesPacks/DayYears UsedDateSmoking Tobacco: NeverSmokeless Tobacco: Never Tobacco Cessation:Counseling Given: Not Answered Alcohol UseStandard Drinks/WeekCommentsNot Currently0 (1 standard drink = 0.6 oz pure alcohol)ChildcareAnswerDate AbpdbcuwFywejhvzvWtptuow48/31/2019Employment AnswerDate YidloprhYrlcljwpmfDtgewzn09/31/2019Hunger ScreeningAnswerDate RecordedWithin the past 12 months we worried whether our food would run out before we got money to buy more.Never True01/01/2025Within the past 12 months the food we bought just didn't last and we didn't have money to get more.Never True01/01/2025Purpose - LifeAnswerDate RecordedPurpose and direction in life Lhwglik75/11/2021Estimated Date of VemkfknaBlqlvyuuZft75/05/2026ased on last menstrual period of 07/28/2024Sex and Gender InformationValueDate Recorded Sex Assigned at BirthNot on fileLegal ZbhTalwfi18/31/2019 12:25 PM EDTGender IdentityNot on fileSexual OrientationNot on file Last Filed Vital Signs Vital SignReadingTime TakenCommentsBlood Jywrhrjj781/801 1:44 PM EDT Toejy851302/16/2025 1:44 PM EDTTemperature--Respiratory Hoci0914 1:44 PM EDTOxygen Saturation--Inhaled Oxygen Concentration--Pavnwe37.8 kg (209 lb) 02/16/2025 1:44 PM MPFHgksvw160.6 cm (5' 6 )02/16/2025 1:44 PM EDTBody Mass Index33.7302/16/2025 1:44 PM EDT Plan of Treatment Health MaintenanceDue DateLast DoneCommentsDepression Xjjjxdbpf50/24/1998Adult BMI Follow Up Plan10/22/2003DTaP,Tdap and Td Vaccines (2 - Td or Tdap)07/03/2024 07/03/2014Influenza Togrrak7412/29/2024Pap Smeardult BMI Xpndufxfs05Tobacco Lfvuidudk10RSV ( or age 60+ yrs) (No Doses Required)Completed Medical Devices Not on file Procedures Procedure NamePriorityDate/TimeAssociated DiagnosisCommentsEXTERNAL LAB ORDERS / WBQRABYPpzzwio13/18/2025 4:22 PM ESTEXTERNAL LAB ORDERS / RESULTSRoutine 02/19/2025 3:15 PM EDTEXTERNAL LAB ORDERS / PCISKKGVirgzlc90/23/2025 3:13 PM EDT EXTERNAL LAB ORDERS / RHMTQZDQceafuh86/22/2025 1:58 PM EDTUS MFM OB FOLLOW-UP, 1 IONNYSydergh24/09/2025 2:10 PM EDT Multigravida of advanced maternal [...] LEUNG : 1985 SEX: F Accession Number: [id number] ORDERING PHYSICIAN: MYA HERMRANN REFERRING PHYSICIAN: MYA HERRMANN Coding Procedures ? 46514: Ultrasound, uterus, real time with image documentation, follow up,transabdominal ? approach per fetus ? 64427: Echocardiography, , cardiovascular system, real time with image documentation (2D), with or ? without M-mode recording; follow-up or repeat study Indication Screening for follow-up survey, Screening for congenital cardiac abnormality , Gestational diabetes, AMA- Supervision of elderly , Supervision of high risk -(MOB son - hypospadia, MOB -son - laryngomalacia ), Obesity in , Hypothyroidism. History OB History ? 7. Para 3 ? [id number] Current Cell free DNA ?Low Risk analysis [...] (oz) ? 4 oz EFW by: ?Hadlock (VOF-CZ-US-FL) Extended Tibia ??46.0 mm 28w 0d 68% [...] Heart/Thorax: 4-chamber view. RVOT view. 3-vessel view. 5-txjzjm-wverjvr view. Great vessels. ? Right lung. Left [...] previously RVOT view ?normal 3-vessel view ??normal 6-dldbum-lzrxpcm view ??normal Aortic arch view ? normal [...] MVP measures 6.7 cm. Recommendations Please see [facility] recommendations from prior clinical and/or ultrasound [...] LEUNG : 1985 SEX: F Accession Number: [id number] ORDERING PHYSICIAN: MYA HERRMANN REFERRING PHYSICIAN: MYA HERRMANN Coding Procedures 68133: Ultrasound, uterus, real time with image documentation, follow up, transabdominal approach per fetus 26640: Echocardiography, , cardiovascular system, real timewith image documentation (2D), with or without M-mode recording; follow-up or repeat study Indication Screening for follow-up survey, Screening for congenital cardiacabnormality , Gestational diabetes, AMA- Supervision of elderly , Supervision of high risk -(MOB son - hypospadia, MOB -son - laryngomalacia ), Obesity in , Hypothyroidism. History OB History 7. Para 3 [id number] Current Cell free DNA Low Risk analysis [...] EFW (oz) 4 oz EFW by: Hadlock (JNG-NN-ON-FL) Extended Tibia 46.0 mm 28w 0d 68% [...] Heart/Thorax: 4-chamber view. RVOT view. 3-vessel view. 5-fmjhsh-jlwpiwlfuvm. Great vessels. Right lung. Left lung. Diaphragm. [...] previously RVOT view normal 3-vessel view normal 2-fbroiw-agturqo view normal Aortic arch view normal Ductal [...] MVP measures 6.7 cm. Recommendations Please see [facility] recommendations from prior clinical and/or ultrasoundreport [...]
--- OUTSIDE RECORDS SUMMARY | 2025-04-16 23:20 | XMS_ITS | Clinical Summary ---
Author Organization [facility] Address [address] [place] [address] Care Team Providers Care Technical Applications Specialist Name Role Phone Jonny Wilcox MD Unavailable [phone] Cosmo Elliott MD Unavailable [phone] Davida Restrepo RN Unavailable [phone] Evans Casas DO Primary Care Provider [phone] Allergies Active AllergyReactionsCriticalityNoted DateCommentsCiprofloxacinOther: See Comments,Jitueyu4205/19/2019 Dizziness, weakness sweating Ciprofloxacin-FluocinoloneOther: See Fvnqqolf17/20/2020 Dizziness, weakness sweating LactalbuminUnknown,GI JnbvwLzq08/26/2018 Crampy and gassy LactoseGI Upset09/10/2017 Diarrhea MilkOther: See MsbclzxoJwm24/26/2018 Crampy and gassy Diarrhea Other reaction(s): GI Upset Crampy and gassy Milk Containing Products (Dairy)Other: See UzrxmglpImh30/26/2018 Crampy and gassy Diarrhea Other reaction(s): GI Upset Crampy and gassy Seasonal AllergiesGI Upset,Other: See Nzxxpxme94/06/2021 Medications MedicationSigDispense QuantityRefillsLast FilledStart DateEnd DateStatus multivitamin [...] MEAL(S)Active Active Problems ProblemNoted DateDiagnosed DateAntiphospholipid antibody ljtqsoru89/29/2025 Vitamin D rodpmdpklh47/29/2025Primary hypercoagulable state08/01/2022VA, old, speech/language wackvpy9608/01/2022Iron deficiency anemia secondary to blood loss (chronic)03/27/2022Iron deficiency anemia of mqyagaftm97/28/2022nti-cardiolipin antibody qlsxspoa36/29/2018Migraine with aura and without status migrainosus, not pqnfhugbida82/16/2018Antiphospholipid antibody ghzhtpar98/14/2018Fatigue 12/29/2016Pain in joint12/29/2016Estimated Date of DeliveryCommentsYes 07/28/2024 Encounters DateTypeDepartmentCare IyifBwgttkodiji26/05/2025 9:40 AM ESTVisit (SP) Office Hematology/Oncology [address] [place] [address] [place] [address] Salvador Dos Santos MD Antiphospholipid antibody positive (Primary Dx); Iron deficiency anemia secondary to blood loss (chronic); Primary hypercoagulable state (HCC); CVA, old, speech/language deficit; Gestational diabetes mellitus (GDM) in third trimester, gestational diabetes method of control unspecified (HCC); History of hemorrhage; Other vitamin B12 deficiency anemia; Diet controlled gestational diabetes mellitus (GDM) in third trimester (HCC); Antiphospholipid syndrome (HCC); nursing home (current) use of anticoagulants; History of CVA (cerebrovascular accident) without residual deficits; Encounter for supervision of high risk in third trimester, antepartum (HCC)04/03/20250329Qeycqk14/02/2025Telephone Cancer Appts [address] [place] [address] Salvador Dos Santos MD 03/02/2025 11:30 AM ESTVisit (SP) Office Hematology/Oncology [address] [place] [address] [place] [address] 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 APRN.MAILROOM COURIER Antiphospholipid antibody positive (Primary Dx); Iron deficiency anemia secondary to blood loss (chronic); Vitamin D deficiency; Primary hypercoagulable state (HCC); CVA, old, speech/language deficit; Gestational diabetes mellitus (GDM) in third trimester, gestational diabetes method of control unspecified (HCC); History of hemorrhage; Anemia complicating , third trimester (HCC)03/02/20252159Tzxuwb71/02/2025 Telephone Hematology/Oncology [address] [place] [address] [place] [address] Rachael Johnson RN Sldhopc5201/26/2025Telephone Hematology/Oncology [address] [place] [address] [place] [address] Rachael Johnson, MARSHA from Last 3 Months [...] drink = 0.6 oz pure alcohol)PHQ-2AnswerDate RecordedPHQ-2 nlkel9534Area Deprivation Index AnswerDate RecordedNational Score (1-100), lower number is lower risk58 09/28/2022State Score (1-10), lower number is lower ptga2323Data from: https://www.neighborhoodatlas.medicine.[facility].edu/. Last address used for [address]Estimated Date of DeliveryCommentsYes 07/28/2024Sex and Gender InformationValueDate RecordedSex Assigned at BirthNot on fileLegal OvxEdjezl78/29/2018 10:06 AM ESTGender IdentityNot on fileSexual OrientationNot on fileOccupationIndustryJob Start DateJob End Datestay at home momNot on fileNot on fileNot on file Last Filed Vital Signs Vital SignReadingTime TakenCommentsBlood Qfnnikxi100/7404/03/2025 9:24 AM EST Mvnqx671804/03/2025 9:24 AM SYWAwrsgnevxqs40.5 ??C (97.7 ??F)04/03/2025 9:24 AM ESTRespiratory Abbj821306/04/2024 9:24 AM ESTOxygen Jtempyfosr25%04/03/2025 9:24 AM ESTInhaled Oxygen Concentration--Lrtabv56 kg (211 lb 10.3 oz)04/03/2025 9:24 AM QGKRzmhru423.7 cm (5' 6.02 )12/23/2024 11:34 AM EDTBody Mass Index34.14 12/23/2024 11:34 AM EDT Plan of Treatment DateTypeDepartmentCare Team (Latest Contact Info)Pngnmgdrbpa35/09/2026 9:30 AM ESTOffice Visit [facility] [address] [place] [address] lab in 5 weeks05/13/2025 5:00 PM [facility] Hematology/Oncology [address] [place] [address] Salvador Dos Santos MD [address] [place] [address] VV for lab resultsHealth MaintenanceDue DateLast DoneCommentsAnxiety Screening 10/22/2003Depression Thmeirswd13/24/2004HIV Lcudfusxr62/24/2004Hepatitis C Nmfldazhv84/24/2004Hepatitis B Vaccine (1 of 3 - 19+ 3-dose series)2004HPV Vaccine (1 - 3-dose SCDM series)2012Cervical Cancer Jotzegpks26/07/2021 12/04/2017DTaP,Tdap,Td Vaccine (2 - Td or Tdap)Covid-19 Vaccine (1 - season)2024Influenza Vaccine (#1) (Patient/Parent/Guardian Counseled and Declines)RSV Vaccine (1 - 1-dose 75+ series)2060 Procedures Procedure NamePriorityDate/TimeAssociated DiagnosisCommentsIRON + TIBCRoutine 04/03/2025 9:20 AM EST 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) Vitamin D deficiency Primary hypercoagulable state (HCC) CVA, old, speech/language deficit FERRITIN CEVUcncdfv93/05/2025 9:20 AM EST 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) Vitamin D deficiency Primary hypercoagulable state (HCC) CVA, old, speech/language deficit COMPREHENSIVE METABOLIC OCXJIGnqieor35/05/2025 9:20 AM EST 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) Vitamin D deficiency Primary hypercoagulable state (HCC) CVA, old, speech/language deficit CBC + QYFLMstvnwx52/05/2025 9:20 AM EST 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) Vitamin D deficiency Primary hypercoagulable state (HCC) CVA, old, speech/language deficit COMPREHENSIVE METABOLIC JQMLICntlpbr94/03/2025 11:40 AM EST 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) Vitamin D deficiency Primary hypercoagulable state (HCC) CBC + VBNZTwvfssx62/03/2025 11:40 AM EST 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) Vitamin D deficiency Primary hypercoagulable state (HCC) VITAMIN D 25 KZBAQSWSdattsx25/03/2025 11:40 AM EST 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) Vitamin D deficiency from Last 3 Months Results * (ABNORMAL) IRON AND TIBC (04/03/2025 9:20 AM EST)ComponentValueRef RangeTest MethodAnalysis TimePerformed AtPathologist EjzqupkttHyvy2147 - 186 ug/dL 04/03/2025 6:56 PM [facility] KZSTJRL984(H)232 - 386 ug/dL 04/03/2025 6:56 PM [facility] LABTransferrin Guegjpygoe73.8(L) 15.0 - 57.0 %04/03/2025 6:56 PM [facility] LABSpecimen (Source) Anatomical Location / LateralityCollection Method / VolumeCollection Time Received TimeBloodBLOOD SPECIMEN / UnknownVenipuncture / Gxoqkpb4104/03/2025 9:20 AM EST04/03/2025 9:20 AM EST Narrative Authorizing ProviderResult TypeResult Chester Caban APRN.CNPLABORATORY Final ResultPerforming OrganizationAddressCity/State/ZIP CodePhone Number [facility] [address] [place] [address], * (ABNORMAL) FERRITIN (04/03/2025 9:20 AM EST)ComponentValueRef RangeTest Method Analysis TimePerformed AtPathologist EgmthoucrLmjuhnfp60.8(L)14.7 - 205.1 ng/mL04/03/2025 7:03 PM [facility] LABSpecimen (Source) Anatomical Location / LateralityCollection Method / VolumeCollection Time Received TimeBloodBLOOD SPECIMEN / UnknownVenipuncture / Pemvfeu3304/03/2025 9:20 AM EST04/03/2025 9:20 AM EST Narrative Authorizing ProviderResult TypeResult Chester Caban APRN.CNPLABORATORY Final ResultPerforming OrganizationAddressCity/State/ZIP CodePhone Number [facility] [address] * (ABNORMAL) COMPREHENSIVE METABOLIC PANEL (04/03/2025 9:20 AM EST) Only the most recent of2 resultswithin the time period is included. ComponentValueRef RangeTest MethodAnalysis TimePerformed AtPathologist Signature Protein, Total6.46.3 - 8.0 g/dL04/03/2025 10:27 AM [facility] LABAlbumin3.93.9 - 4.9 g/dL04/03/2025 10:27 AM [facility] LABCalcium, Total9.48.5 - 10.2 mg/dL04/03/2025 10:27 AM EST [facility] LABBilirubin, Total0.20.2 - 1.3 mg/dL 04/03/2025 10:27 AM [facility] LABAlkaline Phosphatase 8834 - 123 U/L106/04/2024 10:27 AM [facility] CKYPFR65 (L)13 - 35 U/L106/04/2024 10:27 AM [facility] XPXFGB58 - 38 U/L106/04/2024 10:27 AM [facility] RUEZljjwda0264 - 99 mg/dL04/03/2025 10:27 AM [facility] LABComment: The [place] Diabetes Association (ADA) provides guidance [...] 2016, [place] [employer] Association. Diabetes Care. 2016.39(Suppl 1). BUN6(L)7 - 21 mg/dL04/03/2025 10:27 AM [facility] Creatinine0.53(L)0.58 - 0.96 mg/dL04/03/2025 10:27 AM [facility] QTOSlwntg976(L)136 - 144 mmol/L106/04/2024 10:27 AM [facility] LABPotassium4.13.7 - 5.1 mmol/L106/04/2024 10:27 AM EST [facility] RPTSruftvbf30678 - 107 mmol/L106/04/2024 10:27 AM [facility] PMRQX67649 - 30 mmol/L106/04/2024 10:27 AM [facility] LABAnion Rhc003 - 15 mmol/L106/04/2024 10:27 AM [facility] LABEstimated Glomerular Filtration Pvcp776>=60 mL/min/1.73m 04/03/2025 10:27 AM [facility] LABComment:Estimated Glomerular Filtration Rate (eGFR) [...] VolumeCollection TimeReceived TimeBloodBLOOD SPECIMEN / UnknownVenipuncture / Omotjmc8704/03/2025 9:20 AM EST04/03/2025 9:20 AM EST Narrative Authorizing ProviderResult TypeResult StatusHolly Arsh GAY.CNPLABORATORY Final ResultPerforming OrganizationAddressCity/State/ZIP CodePhone Number [facility] [address] [place] [address] * (ABNORMAL) COMPLETE BLOOD COUNT AND DIFFERENTIAL (04/03/2025 9:20 AM EST) Only the most recent of2 resultswithin the time period is included. ComponentValueRef RangeTest MethodAnalysis TimePerformed AtPathologist Signature WBC7.113.70 - 11.00 k/uL04/03/2025 9:27 AM [facility] LABRBC3.923.90 - 5.20 m/uL04/03/2025 9:27 AM [facility] VAXUnkizyogzk26.211.5 - 15.5 g/dL04/03/2025 9:27 AM [facility] MZAEfwuznokoq12.5(L)36.0 - 46.0 %04/03/2025 9:27 AM EST [facility] AOXXGS08.080.0 - 100.0 fL04/03/2025 9:27 AM [facility] IHFSYH79.126.0 - 34.0 pg04/03/2025 9:27 AM [facility] LAKLEJH10.430.5 - 36.0 g/dL04/03/2025 9:27 AM [facility] LABRDW-CV13.611.5 - 15.0 %04/03/2025 9:27 AM [facility] LABPlatelet Ijwbh348388 - 400 k/uL 04/03/2025 9:27 AM [facility] LABMPV9.59.0 - 12.7 fL 04/03/2025 9:27 AM [facility] LABNeutrophils %61.6% 04/03/2025 9:27 AM [facility] LABAbs Neut4.371.45 - 7.50 k/uL04/03/2025 9:27 AM [facility] LABLymphocytes %27.8%04/03/2025 9:27 AM [facility] LABAbs Lymph1.98 1.00 - 4.00 k/uL04/03/2025 9:27 AM [facility] LAB Monocytes %9.3%04/03/2025 9:27 AM [facility] LABAbs Mono0.66<0.87 k/uL04/03/2025 9:27 AM [facility] LAB Eosinophils %0.8%04/03/2025 9:27 AM [facility] LABAbs Eosin0.06<0.46 k/uL04/03/2025 9:27 AM [facility] LAB Basophils %0.1%04/03/2025 9:27 AM [facility] LABAbs Baso<0.03<0.11 k/uL04/03/2025 9:27 AM [facility] LAB Immature Granulocytes %0.4%04/03/2025 9:27 AM [facility] LABAbs Immature Gran0.03<0.10 k/uL04/03/2025 9:27 AM [facility] LABNRBC0.0/100 WBC04/03/2025 9:27 AM [facility] LABAbsolute nRBC<0.01<0.01 k/uL04/03/2025 9:27 AM EST [facility] LABDiff XphwDklq33/05/2025 9:27 AM EST [facility] LABSpecimen (Source)Anatomical Location / LateralityCollection Method / VolumeCollection TimeReceived TimeBloodBLOOD SPECIMEN / UnknownVenipuncture / Isiiwsg8604/03/2025 9:20 AM EST04/03/2025 9:20 AM EST Narrative Authorizing ProviderResult TypeResult StatusHolly Arsh HATHAWAYNLazaraCNPLABORATORY Final ResultPerforming OrganizationAddressCity/State/ZIP CodePhone Number [facility] [address] [place] [address] * VITAMIN D 25 HYDROXY (03/02/2025 11:40 AM EST)ComponentValueRef RangeTest MethodAnalysis TimePerformed AtPathologist SignatureVitamin D 25 Hltvxnq27.6 31.0 - 80.0 ng/mL03/02/2025 9:47 PM ESTUN[facility] LABSpecimen (Source)Anatomical Location / LateralityCollection Method / VolumeCollection TimeReceived TimeBloodBLOOD SPECIMEN / UnknownVenipuncture / Fiudfzd3303/02/2025 11:40 AM EST03/02/2025 11:41 AM EST Narrative Authorizing ProviderResult TypeResult StatusHolly Arsh OCHOACNPLABORATORY Final ResultPerforming OrganizationAddressCity/State/ZIP CodePhone Number [facility] [address] [place] [address], from Last 3 Months Insurance MemberSubscriberPlan / Payer (Effective 2022-Present)Name:Sanna Bone Relation to Subscriber:SelfName:Sanna Bone Payer ID:[id number] (NAIC) Group ID:[id number] Type:Medicaid Address: [place] [id number] Care Teams Team MemberRelationshipSpecialtyStart DateEnd Evans Casas DO [address] [place] [address] PCP - GeneralFamily Kwlcvndk64/3/22 Jonny Wilcox MD [address] [place] [id number] Primary Staff PhysicianCardiology07/16/18 [place] [address] [place] [id number] PhysicianHematology/Oncology09/14/21 Davida Restrepo, MARSHA [address] [place] [id number] Specialty Care CoordinatorHematology/Oncology09/14/21
[2025-04-16 23:39] VITALS: BP 109/63; PULSE 88
[2025-04-17] VITALS (47 sets, daily range): BP systolic 99–127; BP diastolic 53–87; PULSE 69–100; TEMP 36–36.8
[2025-04-17 00:24] LABS: Hematocrit 31.3 % (36.0-48.0); Hemoglobin 10.9 g/dL (12.0-16.0); Mean Corpuscular HGB Conc 34.8 g/dL (29.9-35.2); Mean Corpuscular Hemoglobin 30.7 pg (26.7-34.0); Mean Corpuscular Volume 88.2 fL (81.0-99.0); Platelet Count 275 10^3/uL (150-450); Red Blood Count 3.55 10^6/uL (4.20-5.40); White Blood Count 7.6 10^3/uL (4.0-11.0)
[2025-04-17] MEDS: AMPICILLIN SODIUM 2,000 MG in 0.9 % SODIUM CHLORIDE 100 ML 200 MG IV (00:24)
[2025-04-17 00:38] LABS: Cannabinoid Screen Urine NEGATIVE (NEGATIVE); Methamphetamines Screen Urine NEGATIVE (NEGATIVE); Tricyclic Antidepressant Urine NEGATIVE (NEGATIVE)
[2025-04-17] MEDS: 0.9 % SODIUM CHLORIDE 1,000 ML 125 ML IV (05:01)
[2025-04-17] MEDS: AMPICILLIN SODIUM 1,000 MG in 0.9 % SODIUM CHLORIDE 50 ML 100 MG IV ×3 (05:01→13:53)
[2025-04-17] MEDS: OXYTOCIN/0.9 % SODIUM CHLORIDE 10 UNITS/500 ML PLAST..BAG 6 UNIT IV (05:36)
[2025-04-17] MEDS: ROPIVACAINE HCL/PF 400 MG/200 ML PREMIX 6 MG EPIDURAL (09:24)
[2025-04-17] MEDS: 0.9 % SODIUM CHLORIDE 1,000 ML 1000 ML IV (09:24)
[2025-04-17] MEDS: OXYTOCIN/0.9 % SODIUM CHLORIDE 20 UNITS/1,000 ML PLAST..BAG 125 UNIT IV (15:20)
--- NOTE | 2025-04-17 15:26 | PM.OBPRCVD ---
Procedure Intrapartal events: None Induction method: per pitocin protocol Delivery augmentation: rupture of membranes and pitocin Delivery monitor: external FHT and external uterine Route of delivery: Episiotomy Description: none L&D Laceration Description: perineal - 1st degree Delivery repair: Vicryl Estimated blood loss (mL): 100 Anesthesia type: Epidural Disposition: floor Infant Delivery date: 04/17/25 Gender: male presentation: vertex Placental delivery description: Spontaneous cord description: 3 Vessels and Nuchal Cord
[2025-04-17] MEDS: GLYCERIN/WITCH HAZEL PADS 1 PAD TOPICAL (19:58)
[2025-04-17] MEDS: BENZOCAINE/MENTHOL 85 GRAM SPRAY BOTTLE 1 APPLIC TOPICAL (19:59)
[2025-04-17] MEDS: METFORMIN HCL 500 MG TAB.ER.24H 1000 MG PO (20:52)
[2025-04-17] MEDS: ACETAMINOPHEN 325 MG TABLET 650 MG PO (22:42)
[2025-04-18 01:00] VITALS: BP 126/82; PULSE 82; TEMP 36.7
[2025-04-18] MEDS: ENOXAPARIN SODIUM 40 MG/0.4 ML SYRINGE SUBQ (05:57)
[2025-04-18] MEDS: LEVOTHYROXINE SODIUM 25 MCG TABLET PO (05:57)
[2025-04-18 06:31] LABS: Hematocrit 30.3 % (36.0-48.0); Hemoglobin 10.5 g/dL (12.0-16.0); Immature Granulocytes Abs Auto 0.04 10^3/uL (0.00-0.03); Immature Granulocytes Pct Auto 0.5 % (0.0-0.5); Lymphocytes Absolute Auto 2.5 10^3/uL (1.2-3.8); Mean Corpuscular HGB Conc 34.7 g/dL (29.9-35.2); Mean Corpuscular Hemoglobin 30.8 pg (26.7-34.0); Mean Corpuscular Volume 88.9 fL (81.0-99.0); Platelet Count 256 10^3/uL (150-450); Red Blood Count 3.41 10^6/uL (4.20-5.40); White Blood Count 8.6 10^3/uL (4.0-11.0)
--- NOTE | 2025-04-18 08:21 | PM.OBPN ---
OB - PN: Subj Subjective Patient comments: no complaints and pain well controlled status: doing well Exam Constitutional Vital Signs, click to edit/add: Last Vital Signs Temp 98.1 F 04/18/25 01:00 Pulse 82 04/18/25 01:00 Resp 16 04/17/25 17:30 BP 126/82 04/18/25 01:00 O2 Del Method Room Air 04/18/25 01:00 Documenting provider has reviewed patient's vital signs: yes Common normals: no apparent distress Respiratory Common normals: normal respiratory effort and clear to auscultation bilaterally Cardio Common normals: regular rate and regular rhythm GI Common normals: Normal to inspection, nondistended, normoactive bowel sounds present Extremity Common normals: no clubbing, cyanosis or edema and no calf tenderness Results Labs Labs: Short CBC 04/18/25 Range/Units 05:51 WBC 8.6 (4.0-11.0) 10^3/uL Hgb 10.5 L (12.0-16.0) g/dL Hct 30.3 L (36.0-48.0) % Plt Count 256 (150-450) 10^3/uL OB - PN: A/P Plan - Vaginal Delivery day: 1 Plan: routine care, discharge home and follow up 6 weeks Time Spent with Patient Time: Total time spent is greater than 50% in coordination of care (as documented) at patient's floor/unit and/or counseling patient: Total time spent with greater than 50% in coordination of care (as documented) at patient's floor/unit and/or counseling patient: less than 15 minutes
[2025-04-18 08:56] VITALS: TEMP 35.7
[2025-04-18 08:57] VITALS: BP 113/69; PULSE 91
[2025-04-18 08:58] VITALS: TEMP 36.9
[2025-04-18] MEDS: DOCUSATE SODIUM 100 MG CAPSULE PO ×2 (09:30→21:07)
[2025-04-18] MEDS: RHO(D) IMMUNE GLOBULIN 1,500 UNIT SYRINGE 1500 UNIT IM (12:30)
[2025-04-18 20:56] VITALS: BP 103/58; PULSE 80
[2025-04-18] MEDS: METFORMIN HCL 500 MG TAB.ER.24H 1000 MG PO (21:07)
== END 2025-04-18 21:30 | disposition home or self-care (01) | DRG 560 ==
PROVIDERS: Admitting Provider Obstetrics & Gynecology; Visit Provider Obstetrics & Gynecology
DX: O24.425 Gestational diabetes mellitus in childbirth, controlled by oral hypoglycemic drugs (principal); O99.284 Endocrine, nutritional and metabolic diseases complicating childbirth; E03.9 Hypothyroidism, unspecified; O69.81X0 Labor and delivery complicated by cord around neck, without compression, not applicable or unspecified; O70.0 First degree perineal laceration during delivery; O99.12 Other diseases of the blood and blood-forming organs and certain disorders involving the immune mechanism complicating childbirth; D68.61 Antiphospholipid syndrome; Z3A.37 37 weeks gestation of pregnancy; Z37.0 Single live birth; O26.893 Other specified pregnancy related conditions, third trimester; Z67.21 Type B blood, Rh negative; Z87.440 Personal history of urinary (tract) infections; Z87.442 Personal history of urinary calculi; Z86.16 Personal history of COVID-19; Z86.73 Personal history of transient ischemic attack (TIA), and cerebral infarction without residual deficits; Z79.890 Hormone replacement therapy; O99.824 Streptococcus B carrier state complicating childbirth
CPT/HCPCS: 36415; 51702; 59025; 59050; 59410; 76816; 76818; 80307; 81001; 82947; 84112; 85025; 85027; 85461; 86850; 86900; 86901; 87086; J0290; J1650; J2791; J2795

== ENCOUNTER 2025-04-21 08:18 | Outpatient (OUT) | payer MEDICAID, SELFPAY ==
--- OUTSIDE RECORDS SUMMARY | 2025-04-07 13:30 | XMS_ITS | Encounter Summary ---
Author Organization [facility] tem Address [facility] [id number] [address] [place] [address] Care Team Providers Care Barrel Assembler Helper Name Role Phone Evans Casas DO Primary Care Provider [phone] Encounter Details DateTypeDepartmentCare Team (Latest Contact Info)Szecphabwge53/09/2025 1:30 PM ESTTelemedicine Maternal- Medicine at [facility] [address] [place] [phone] Davida Smith PA-C [address] [address] Gestational diabetes mellitus (GDM) in third trimester controlled on oral hypoglycemic drug (Primary Dx) Social History Tobacco UseTypesPacks/DayYears UsedDateSmoking Tobacco: NeverSmokeless Tobacco: NeverAlcohol UseStandard Drinks/WeekCommentsNot Currently0 (1 standard drink = 0.6 oz pure alcohol)ChildcareAnswerDate KkctpevrNjjpeisbcFkwofja08/31/2019 EmploymentAnswerDate KkzlzvslQmhioibpisTcmmgvo84/31/2019Hunger ScreeningAnswer Date RecordedWithin the past 12 months we worried whether our food would run out before we got money to buy more.Never True01/01/2025Within the past 12 months the food we bought just didn't last and we didn't have money to get more.Never True01/01/2025Purpose - LifeAnswerDate RecordedPurpose and direction in life Fsaygda14/11/2021Estimated Date of AgickuclKxwazclkCak13/05/2026ased on last menstrual period of 07/28/2024Sex and Gender InformationValueDate Recorded Sex Assigned at BirthNot on fileLegal RrsRygasy26/31/2019 12:25 PM EDTGender IdentityNot on fileSexual OrientationNot on filedocumented as of this encounter Progress Notes * Davida Smith PA-C - 04/07/2025 1:30 PM EST Maternal- Medicine Consultation VIDEO Patient is present at home , provider present at [facility] HISTORY OF PRESENT ILLNESS: Sanna Bone [...] so she can have them done at [place] - Anatomy survey with MFM -followsup scheduled [...] done , plan to transition anticoagulation with division head. Confirmed / discussed this plan with Dr [...] by e-mail to: or by fax to: [phone] Davida Smith PA-C Maternal- Medicine Office phone: [phone] Davida Smith PA-C 04/07/25 8006 documented in this encounter Plan of Treatment Not on file documented as of this encounter Visit Diagnoses Diagnosis Gestational diabetes mellitus (GDM) in third trimester controlled on oral hypoglycemic drug- Primary documented in this encounter Care Teams Team MemberRelationshipSpecialtyStart DateEnd Date Evans Casas DO PCP - GeneralFamily Medicine07/07/19documented as of this encounter
--- OUTSIDE RECORDS SUMMARY | 2025-04-08 13:40 | XMS_ITS | Encounter Summary ---
Author Organization [facility] Address [address] [place] [address] Care Team Providers Care Director Title Name Role Phone Evans Casas MD Primary Care Provider [phone] Reason for Visit * ReasonCommentsRoutine Visit Encounter Details DateTypeDepartmentCare Team (Latest Contact Info)Ogmjhgfypbd47/10/2025 1:40 PM ESTRoutine [facility] [address] [place] [phone] Wilton Herrmann DO [address] [place], [place] [phone] 36 weeks gestation of (HHS-HCC); Third trimester ([facility]HS-HCC); Anemia complicating childbirth ([facility]); Anticoagulant long-term use; Antiphospholipid antibody positive; Antiphospholipid antibody syndrome ([facility]); Thyroid disease Social History Tobacco UseTypesPacks/DayYears UsedDateSmoking Tobacco: NeverSmokeless Tobacco: NeverAlcohol UseStandard Drinks/WeekCommentsNever0 (1 standard drink = 0.6 oz pure alcohol)PHQ-2AnswerDate RecordedPatient Health Questionnaire-2 Score0 03/03/2025Estimated Date of CwnhbdtsInohaxrbNhv09/05/2026ased on last menstrual period of 07/28/2024Sex and Gender InformationValueDate RecordedSex Assigned at BirthNot on fileLegal LuhZccdtj29/15/2023 11:19 PM EDTGender IdentityNot on fileSexual OrientationNot on filedocumented as of this encounter Last Filed Vital Signs Vital SignReadingTime TakenCommentsBlood Niidvxou136/7812 2:05 PM EST Pulse--Temperature--Respiratory Rate--Oxygen Saturation--Inhaled Oxygen Concentration--Hwfmnu66.7 kg (211 lb)04/08/2025 2:05 PM ESTHeight--Body Mass [...] Date Noted 32 weeks gestation of ([facility]) 11/28/2019 Abdominal pain 06/12/2023 Acute bronchitis due to infection 06/12/2023 Acute on chronic vesicular eczema of hands and feet 11/15/2023 Anemia complicating childbirth ([facility]) 01/16/2020 Anticoagulant long-term use 02/22/2020 Antiphospholipid antibody positive 09/10/2017 Antiphospholipid antibody syndrome ([facility]) 07/07/2019 Anxiety 06/12/2023 Blood pressure elevated without history of HTN 11/15/2023 BMI 37.0-37.9, adult 11/15/2023 Cerebral infarction, unspecified ([facility]) 05/16/2019 Cerebrovascular accident (CVA) due to stenosis of middle cerebral artery ([facility]) 02/22/2020 Cervicalgia 02/05/2019 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 ([facility]) 01/08/2020 Coagulation defect, unspecified ([facility]) 02/05/2019 Cold intolerance 11/15/2023 Deficiency of other specified B group vitamins 05/16/2019 Deviated septum 11/15/2023 Dizziness and giddiness 02/05/2019 Dry mouth 11/15/2023 Dysfunction of eustachian tube 06/12/2023 Dyspnea 06/12/2023 Elevated blood pressure reading 11/15/2023 Encounter for supervision of normal , unspecified, first trimester ([facility]) 05/29/2019 Environmental allergies 11/15/2023 Fatigue 12/29/2016 First degree perineal laceration during delivery ([facility]) 01/16/2020 Frequency of micturition 02/19/2019 Genitourinary symptoms 08/19/2021 Gestational diabetes mellitus (GDM), antepartum ([facility]) 01/26/2022 H/O: hypothyroidism 11/15/2023 Hematochezia 06/12/2023 [...] 01/16/2020 Irregular uterine bleeding 11/15/2023 problem ([facility]) 06/12/2023 Less than 8 weeks gestation of ([facility]) 06/05/2019 care home (current) use of antithrombotics/antiplatelets 02/05/2019 Migraine without aura and without status migrainosus, not intractable 09/12/2017 Morbid [place] 11/15/2023 Muscle fasciculation 08/19/2021 Nasal polyps 11/15/2023 Non-smoker 11/15/2023 NEETA (obstructive sleep apnea) 11/15/2023 Other acute postprocedural pain 02/03/2019 Other general symptoms and signs 10/28/2019 Other immediate hemorrhage ([facility]) 01/16/2020 Other specified noninflammatory disorders of vagina 02/21/2019 Pain in joint 12/29/2016 Palpitations 08/26/2019 Paresthesia of bilateral legs 11/15/2023 Pelvic and perineal pain 02/01/2019 Personal history of urinary (tract) infections 01/16/2020 Pre-diabetes 11/15/2023 Primary hypercoagulable state ([facility]) 08/01/2022 Pruritus, unspecified 01/02/2020 Psychogenic hyperventilation 06/12/2023 Raised antibody titer 09/25/2017 Right lower quadrant pain 11/15/2023 Right otitis externa 11/15/2023 Salivary gland swelling 11/15/2023 Single live ([facility]) 01/15/2020 Snoring 11/15/2023 Speech and language [...] drainage of cyst WISDOM TOOTH EXTRACTION 2007 [place] teeth REVIEW OF SYSTEMS Review of Systems: [...] nursing note reviewed. Exam conducted with a splitting machine operator helper present. Vitals: Estimated body mass index is 34.06 kg/m?? as calculated from the following: Height as of 11/19/23: 5' 6 . Weight as of this encounter: 211 lb. BP: 120/78 Patient's last menstrual period was 07/28/2024. Assessment/Plan ICD-10-CM 1. 36 weeks gestation of ([facility]) Z3A.36 POCT urinalysis dipstick manually resulted 2. Third trimester ([facility]) Z34.93 POCT urinalysis dipstick manually resulted CULTURE, GROUP B STREP WITH SUSCEPTIBLITY CULTURE, GROUP B STREP WITH SUSCEPTIBLITY 3. Anemia complicating childbirth ([facility]) O99.02 4. Anticoagulant long-term use Z79.01 5. Antiphospholipid antibody positive R76.0 6. Antiphospholipid antibody syndrome ([facility]) D68.61 7. Thyroid disease E07.9 Assessment/Plan Return [...] GROUP B STREP WITH SUSCEPTIBLITYLabRoutine Third trimester ([facility]) Expected: 04/08/2025, Expires: 04/08/2026documented as of this encounter Procedures Procedure NamePriorityDate/TimeAssociated DiagnosisCommentsPOCT URINALYSIS BDBMGAVJIrsozyr18/10/2025 2:12 PM EST 36 weeks gestation of [...] Location / LateralityCollection Method / VolumeCollection TimeReceived DqqhVdkbk29/10/2025 2:12 PM EST Narrative Authorizing ProviderResult TypeResult StatusCorey Montez DOPOINT OF CARE TEST ENTER/EDIT ORDERABLESFinal Result documented in this encounter Visit Diagnoses Diagnosis 36 weeks gestation of ([facility]) Third trimester ([facility]) state, incidental Anemia complicating childbirth ([facility]) Anticoagulant long-term use Encounter for long-term (current) use of anticoagulants Antiphospholipid antibody positive Other and unspecified nonspecific immunological findings Antiphospholipid antibody syndrome ([facility]) Primary hypercoagulable state Thyroid disease Unspecified disorder of thyroid documented in this encounter Care Teams Team MemberRelationshipSpecialtyStart DateEnd Evans Casas MD [address] [facility] [place] [address] PCP - GeneralFamily Medicine11/07/23documented as of this encounter
--- OUTSIDE RECORDS SUMMARY | 2025-04-15 13:50 | XMS_ITS | Encounter Summary ---
Author Organization [facility] Address [address] [place] [address] Care Team Providers Care Financial Quantitative Analyst Name Role Phone Evans Casas MD Primary Care Provider [phone] Reason for Visit * ReasonCommentsRoutine Visit Encounter Details DateTypeDepartmentCare Team (Latest Contact Info)Zoaewwniega12/17/2025 1:50 PM ESTRoutine [facility] [address] [place] [phone] Wilton Herrmann DO [address] [place], [place] [phone] Third trimester ([facility]); 37 weeks gestation of ([facility]) Social History Tobacco UseTypesPacks/DayYears UsedDateSmoking Tobacco: NeverSmokeless Tobacco: NeverAlcohol UseStandard Drinks/WeekCommentsNever0 (1 standard drink = 0.6 oz pure alcohol)PHQ-2AnswerDate RecordedPatient Health Questionnaire-2 Score0 03/03/2025Estimated Date of JzmpxaihMsjkkbypTof01/05/2026ased on last menstrual period of 07/28/2024Sex and Gender InformationValueDate RecordedSex Assigned at BirthNot on fileLegal IkcCeqrny09/15/2023 11:19 PM EDTGender IdentityNot on fileSexual OrientationNot on filedocumented as of this encounter Last Filed Vital Signs Vital SignReadingTime TakenCommentsBlood Npgmnzmp418/7404/15/2025 2:45 PM EST Pulse--Temperature--Respiratory Rate--Oxygen Saturation--Inhaled Oxygen Concentration--Snekgd42.8 kg (209 lb)04/15/2025 2:45 PM ESTHeight--Body Mass [...] Diagnosis Date Noted 32 weeks gestation of ([facility]) 11/28/2019 Abdominal pain 06/12/2023 Acute bronchitis due to infection 06/12/2023 Acute on chronic vesicular eczema of hands and feet 11/15/2023 Anemia complicating childbirth ([facility]) 01/16/2020 Anticoagulant long-term use 02/22/2020 Antiphospholipid antibody positive 09/10/2017 Antiphospholipid antibody syndrome ([facility]) 07/07/2019 Anxiety 06/12/2023 Blood pressure elevated without history of HTN 11/15/2023 BMI 37.0-37.9, adult 11/15/2023 Cerebral infarction, unspecified ([facility]) 05/16/2019 Cerebrovascular accident (CVA) due to stenosis of middle cerebral artery ([facility]) 02/22/2020 Cervicalgia 02/05/2019 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 ([facility]) 01/08/2020 Coagulation defect, unspecified ([facility]) 02/05/2019 Cold intolerance 11/15/2023 Deficiency of other specified B group vitamins 05/16/2019 Deviated septum 11/15/2023 Dizziness and giddiness 02/05/2019 Dry mouth 11/15/2023 Dysfunction of eustachian tube 06/12/2023 Dyspnea 06/12/2023 Elevated blood pressure reading 11/15/2023 Encounter for supervision of normal , unspecified, first trimester ([facility]) 05/29/2019 Environmental allergies 11/15/2023 Fatigue 12/29/2016 First degree perineal laceration during delivery ([facility]) 01/16/2020 Frequency of micturition 02/19/2019 Genitourinary symptoms 08/19/2021 Gestational diabetes mellitus (GDM), antepartum ([facility]) 01/26/2022 H/O: hypothyroidism 11/15/2023 Hematochezia 06/12/2023 [...] anemia 01/16/2020 Irregular uterine bleeding 11/15/2023 problem ([facility]) 06/12/2023 Less than 8 weeks gestation of ([facility]) 06/05/2019 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/antiplatelets 02/05/2019 Migraine without aura and without status migrainosus, not intractable 09/12/2017 Morbid obesity ([facility]) 11/15/2023 Muscle fasciculation 08/19/2021 Nasal polyps 11/15/2023 Non-smoker 11/15/2023 NEETA (obstructive sleep apnea) 11/15/2023 Other acute postprocedural pain 02/03/2019 Other general symptoms and signs 10/28/2019 Other immediate hemorrhage ([facility]) 01/16/2020 Other specified noninflammatory disorders of vagina 02/21/2019 Pain in joint 12/29/2016 Palpitations 08/26/2019 Paresthesia of bilateral legs 11/15/2023 Pelvic and perineal pain 02/01/2019 Personal history of urinary (tract) infections 01/16/2020 Pre-diabetes 11/15/2023 Primary hypercoagulable state ([facility]) 08/01/2022 Pruritus, unspecified 01/02/2020 Psychogenic hyperventilation 06/12/2023 Raised antibody titer 09/25/2017 Right lower quadrant pain 11/15/2023 Right otitis externa 11/15/2023 Salivary gland swelling 11/15/2023 Single live ([facility]) 01/15/2020 Snoring 11/15/2023 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) 12/30/2019 Suspected severe acute respiratory syndrome coronavirus 2 (SARS-CoV-2) infection 06/12/2023 SVT (supraventricular tachycardia) ([facility]) 08/26/2019 Syncope and collapse 06/03/2018 Other bacterial infections of unspecified site 06/27/2019 Thrombocytopenia, unspecified 11/20/2019 Hypoglycemia 06/12/2023 Unspecified condition associated with female genital organs and menstrual cycle 05/09/2019 Unspecified ovarian cyst, right side 02/06/2019 Urinary tract infection 10/16/2019 Referred otalgia of right ear 11/19/2023 LPRD (laryngopharyngeal reflux disease) 11/19/2023 H/O loss 01/05/2025 Multigravida of advanced maternal age in second trimester ([facility]) 01/05/2025 Thyroid disease 01/05/2025 Resolved Ambulatory Problems Diagnosis Date Noted No Resolved Ambulatory Problems Past Medical History: Diagnosis Date AMA (advanced maternal age) multigravida 35+ ([facility]) Anemia Antiphospholipid syndrome ([facility]) Gestational diabetes ([facility]) Heartburn Hypothyroid Stroke ([facility]) Family History[1] Social History Tobacco Use [...] nursing note reviewed. Exam conducted with a mold closer present. Vitals: Estimated body mass index is 33.73 kg/m?? as calculated from the following: Height as of 11/19/23: 5' 6 . Weight as of this encounter: 209 lb. BP: 116/74 Patient's last menstrual period was 07/28/2024. Assessment/Plan Encounter Diagnosis: ICD-10-CM 1. Third trimester ([facility]) Z34.93 2. 37 weeks gestation of ([facility]) Z3A.37 POCT urinalysis dipstick manually resulted [...] drainage of cyst WISDOM TOOTH EXTRACTION 2007 [place] teeth [3] Allergies Allergen Reactions Ciprofloxacin GI [...] this encounter Procedures Procedure NamePriorityDate/TimeAssociated DiagnosisCommentsPOCT URINALYSIS WMYABQPXUisxvuk57/17/2025 2:45 PM EST 37 weeks gestation of ([facility]) documented in this encounter Results * (ABNORMAL) [...] Location / LateralityCollection Method / VolumeCollection TimeReceived UexuXnwgd24/17/2025 2:45 PM EST Narrative Authorizing ProviderResult TypeResult StatusCorecarmen Herrmann DOPOINT OF CARE TEST ENTER/EDIT ORDERABLESFinal Result documented in this encounter Visit Diagnoses Diagnosis Third trimester ([facility]) state, incidental 37 weeks gestation of ([facility]) documented in this encounter Care Teams Team MemberRelationshipSpecialtyStart DateEnd Date Evans Casas MD [address] [place] [place] [address] PCP - GeneralFamily Medicine11/07/23documented as of this encounter
--- OUTSIDE RECORDS SUMMARY | 2025-04-17 23:59 | XMS_ITS | Continuity of Care Document ---
Author Organization [facility] Address Unknown Care Team Providers Care Tray Room Worker Name Role Phone Evans MORTON Primary Care Physician Cheri Norwood Unavailable Unavailable Encounter FT_FIN [id number] Date(s): 01/17/25 - 04/17/[address] [address] Encounter Diagnosis Other specified abnormal findings of blood chemistry(Final) - Discharge Disposition: Home (Routine DC) Attending Physician: Wilton MASSEY DO Admitting Physician: Wilton MASSEY DO Encounter Type: Recurring Allergies, Adverse Reactions, Alerts SubstanceCriticalitySeverityReactionReaction SeverityStatusciprofloxacinNumbness and tingling of skin Nausea ActiveMilk ProductsIllnessActive Treatment Plan Future Scheduled Tests Laboratory* HgbA1c 08/05/24 * HgbA1c 11/04/24 Immunizations Given and Recorded VaccineDateStatusRefusal Reasondiphtheria/pertussis, acel/tetanus adult07/03/14 Recorded Not Given VaccineDateStatusRefusal Reasoninfluenza virus vaccine, rmotdidgqmb18/19/23Not GivenPatient Refusesinfluenza virus vaccine, qwvofmsjoqa49/9/20Not GivenPatient Refuses Medications Flonase 0.05 mg/inh [place] 2 spray(s), Nasal, Daily, 16 gram, Refill(s) 11, each nostril, [facility][id number], 168, cm, 06/09/24 14:03:00 EST, Height/Length Dosing, 99.1, kg, 06/09/24 14:03:00 EST, Weight Dosing Start Date: 06/09/24 Status: Ordered Medication Dispense Status: Completed Quantity: 16.0 Unit: g Total Allowed Fills: 12 Fills Dispensed: 0 levothyroxine 25 mcg (0.025 mg) Tab 25 mcg = 1 tab(s), Oral, Daily, Dr. Celaya, # 30 tab(s), Refills(s) 0 Start Date: 06/09/24 Status: Ordered Medication Dispense Status: Completed Quantity: 30.0 Unit: tab(s) Total Allowed Fills: 1 Fills Dispensed: 0 Lovenox 40 mg/0.4 mL Injection 40 mg, SubCutaneous, q24hr, # 7 EA, Refills(s) 0, Blood Thinner Start Date: 04/07/20 Status: Ordered Medication Dispense Status: Completed Quantity: 7.0 Unit: EA Total Allowed Fills: 1 Fills Dispensed: 0 MetFORMIN (Eqv-Glucophage XR) 500 mg oral tablet, extended release 1,000 mg = 2 tab(s), Oral, Daily, Refills(s) 0 Start Date: 10/20/22 Status: Ordered Medication Dispense Status: Completed Total Allowed Fills: 1 Fills Dispensed: 0 Vitamin D 2,000 International_Unit, Oral, qWeek, Refills(s) 0 Start Date: 08/03/23 Status: Ordered Medication Dispense Status: Completed Total Allowed Fills: 1 Fills Dispensed: 0 Problem List ConditionConfirmationCourseEffective DatesStatusHealth StatusInformantAbdominal painConfirmedResolvedAcute bronchitis due to other specified organismsConfirmed ActiveAcute URIConfirmed< 12/12/18ResolvedDyshidrotic eczemaConfirmedActivePollen allergiesConfirmedActiveAntiphospholipid syndromeConfirmedActiveAntiphospholipid antibody with hypercoagulable stateConfirmedActiveAnxiety and depression ConfirmedResolvedWeaknessConfirmedActiveAutoimmune hypothyroidismConfirmedActive BMI 37.0-37.9, adultConfirmedResolvedBMI 35.0-35.9,adultConfirmedActiveVaginal candidaConfirmed< 12/12/18ResolvedRight ovarian cystConfirmedActiveDeviated septumConfirmedActiveDizzinessConfirmedResolvedDysfunction of right eustachian tubeConfirmedActiveSOB (shortness of breath)ConfirmedResolvedDysuriaConfirmed ResolvedBlood pressure elevated without history of HTNConfirmedActive Environmental allergiesConfirmedActiveFacial paresthesiaConfirmedActiveFamily history of ovarian cystConfirmed< 11/21/18ResolvedFatigueConfirmedActiveFamily history of anemiaConfirmed< 11/21/18ResolvedGERD with esophagitisConfirmedActive Gestational diabetesConfirmedActiveHx of iron deficiency anemiaConfirmedActive History of asthmaConfirmedActiveH/O: VBL0VrvtqbczaOsubvcF/O: hypothyroidism ConfirmedActiveBloody stoolsConfirmedResolvedHistory of kidney stonesConfirmed ActiveHistory of gestational diabetesConfirmedActiveHistory of COVID-19Confirmed ActiveHypoglycemiaConfirmedActiveElevated blood pressure readingConfirmedActive Increased urinary frequencyConfirmedActiveInhalation of noxious fumesConfirmed ActiveCold intoleranceConfirmedActiveIron deficiencyConfirmedActiveSpontaneous miscarriageConfirmed< 12/12/18ResolvedMorbid obesityConfirmedActiveNon-smoker ConfirmedActiveClass 1 obesity with body mass index (BMI) of 34.0 to 34.9 in adultConfirmedResolvedObesityConfirmedActiveOSA (obstructive sleep apnea) ConfirmedActivePalpitationsConfirmedActiveParesthesia of bilateral legsConfirmed ActiveWell adult examConfirmedActiveNasal polypsConfirmedActivePre-diabetes XezmpxbgrEtwbfdSvtatdknmBhoeozjwx64/24/07 - 11/27/07ResolvedPregnancyConfirmed 10/01/13 - 07/01/1477CujujspyAwtbruapiMgafxuird0/10/13 - 03/29/13Resolved Hyperventilation syndromeConfirmedActiveRight lower quadrant painConfirmedActive SinusitisConfirmedActiveOther sleep disordersConfirmedActiveSnoringConfirmed ActiveSuspected COVID-19 virus infectionConfirmedResolvedSalivary gland swelling ConfirmedActiveTMJ syndromeConfirmedActiveCOVID-19 vaccine dose declined ConfirmedActiveSystemic viral illnessConfirmedActiveDry mouthConfirmedActive 1reported by pt - related to antiphospholipid syndrome Procedures ProcedureDateRelated DiagnosisBody SiteStatusBiopsy of breast06/14/13ompleted Extraction of wisdom vcvwx7350Ybkzdyoykqmmvooixk for ovarian cysts to drain Completed Results Laboratory List NameDateThyroid Stimulating Hormone01/17/25 Most recent to oldest [Reference Range]:1TSH [0.34-5.60 mcIU/mL]1.85 mcIU/mL (01/17/25 9:35 AM) Social History Social History TypeResponseSmoking StatusNever (less than 100 in lifetime);Never entered on: 09/07/24Birth SexFemaleSex RepresentationFemale (finding) Patient Care team information Care Team Personnel Name: Wilton MASSEY DO Position: FT OB/PEDS Hospital Provider Member Role: OBGYN Address: [address] , [facility] [place], [place] [address] Telecom: [phone] Name: Davida Jaime Position: [employer]: Claims Followup Rep (Prestidigitator) Member Role: [employer]: Claims Followup Rep (Prestidigitator) Name: Evans MORTON DO, FAAFP Position: FT Ambulatory - Primary Care Provider? Member Role: Primary Care Physician Address: [address], [facility] [place], [place] [address] Telecom: Care Team Related Persons Name: HELENA RENDON Name: HELENA RENDON Name: HELENA RENDON Name: JIMMY RENDON Name: OLI RENDON Insurance Providers Guarantor name: MADHU Jaylan RENDON Health Plan Information #: 1 Payer: Medicaid Payer Identifier: [id number] Member Number: [id number] Group Number: [id number] Subscriber Identifier: [id number] Relationship to Subscriber: self Coverage Type: MEDICAID Coverage Verification Date: 25 Telecom: [phone] Address: [address] [place] [id number]
--- OUTSIDE RECORDS SUMMARY | 2025-04-21 08:21 | XMS_ITS | Encounter Summary ---
Author Organization [facility] Address [address] [place] [address] Care Team Providers Care Bartender Name Role Phone Evans Casas MD Primary Care Provider [phone] Encounter Details DateTypeDepartmentCare Team (Latest Contact Info)Rovjcvtcfhn46/18/2025linisync Result Encounter [facility] External Department Unsolicited Wilton Herrmann, DO [address] [place], [place] [id number] Social History Tobacco UseTypesPacks/DayYears UsedDateSmoking Tobacco: NeverSmokeless Tobacco: NeverAlcohol UseStandard Drinks/WeekCommentsNever0 (1 standard drink = 0.6 oz pure alcohol)PHQ-2AnswerDate RecordedPatient Health Questionnaire-2 Score0 03/03/2025Estimated Date of QvzbnwcaPosuxfnwTlg87/05/2026ased on last menstrual period of 07/28/2024Sex and Gender InformationValueDate RecordedSex Assigned at BirthNot on fileLegal DzjPgymcq72/15/2023 11:19 PM EDTGender IdentityNot on fileSexual OrientationNot on filedocumented as of this encounter Plan of Treatment Not on file documented as of this encounter Procedures Procedure NamePriorityDate/TimeAssociated DiagnosisCommentsTBH DRUG SCREEN RAPID (URINE)Cnudqdw3904/16/2025 11:30 PM EST HMHP CBC WITH PLATELET NO WJTJGBAZJKVEPmtwwvk82/18/2025 12:08 AM EST documented in this encounter Results * [facility] DRUG SCREEN RAPID (URINE) (04/16/2025 11:30 PM EST)ComponentValueRef Range Test MethodAnalysis TimePerformed AtPathologist SignatureCANNABINOID SCREEN URINENEGATIVENEGATIVETBHPHENCYCLIDINE SCREEN URINENEGATIVENEGATIVETBHCOCAINE SCREEN URINENEGATIVENEGATIVETBHMETHAMPHETAMINES SCREEN URINENEGATIVENEGATIVE TBHOPIATE SCREEN URINENEGATIVENEGATIVETBHAMPHETAMINE SCREEN URINENEGATIVE NEGATIVETBHBENZODIAZEPINES SCREEN URINENEGATIVENEGATIVETBHTRICYCLIC ANTIDEPRESSANT URINENEGATIVENEGATIVETBHMETHADONE SCREEN URINENEGATIVENEGATIVE TBHBARBITURATES SCREEN URINENEGATIVENEGATIVETBHOXYCODONE SCREEN URINENEGATIVE NEGATIVETBHBUPRENORPHINE SCREEN URINENEGATIVENEGATIVETBHComment: DRUG CLASS TEST SYSTEM CUT-OFF CONCENTRATIONS ARE FOLLOWS: AMP (Amphetamine): 500 ng/mL BAR (Barbiturates): 200 ng/mL BZO (Benzodiazepines): 150 ng/mL BUP (Buprenorphine): 10 ng/mL INDIA (Cocaine): 150 ng/mL mAMP (Methamphetamine): 500 ng/mL MTD (Methadone): 200 ng/mL OPI (Opiates): 100 ng/mL OXY (Oxycodone): 100 ng/mL PCP (Phencyclidine): 25 ng/mL THC (Cannabinoids): 50 ng/mL TCA (Trycyclic Antidepressants): 300 ng/mL Specimen (Source)Anatomical Location / LateralityCollection Method / Volume Collection TimeReceived Time04/16/2025 11:30 PM EST04/17/2025 12:18 AM EST Narrative [facility] - 04/17/2025 12:38 AM EST Authorizing ProviderResult TypeResult StatusCorey Montez DOCLINISYNCFinal Result Performing OrganizationAddressCity/State/ZIP CodePhone Number [facility] * (ABNORMAL) HMHP CBC WITH PLATELET NO DIFFERENTIAL (04/16/2025 12:08 AM EST) ComponentValueRef RangeTest MethodAnalysis TimePerformed AtPathologist SignatureTBH WBC7.64.0 - 11.0 10 3/uLTBHTBH RBC3.55(L)4.20 - 5.40 10 6/uLTBH TBH HGB10.9(L)12.0 - 16.0 g/dLTBHTBH HCT31.3(L)36.0 - 48.0 %TBHTBH MCV88.281.0 - 99.0 fLTBHTBH MCH30.726.7 - 34.0 pgTBHTBH MCHC34.829.9 - 35.2 g/dLTBHTBH RDW 13.211.0 - 15.0 %TBHTBH [id number] - 450 10 3/uLTBHTBH MPV9.99.5 - 13.5 fLTBH Specimen (Source)Anatomical Location / LateralityCollection Method / Volume Collection TimeReceived Time04/16/2025 12:08 AM EST04/17/2025 12:18 AM EST Narrative [facility] - 04/17/2025 12:31 AM EST Authorizing ProviderResult TypeResult StatusCorey Montez DOCLINISYNCFinal Result Performing OrganizationAddressCity/State/ZIP CodePhone Number [facility] documented in this encounter Visit Diagnoses Not on filedocumented in this encounter Care Teams Team MemberRelationshipSpecialtyStart DateEnd Date Evans Casas MD [address] [place] [address] PCP - GeneralFamily Medicine11/07/23documented as of this encounter
--- OUTSIDE RECORDS SUMMARY | 2025-04-21 08:21 | XMS_ITS | Encounter Summary ---
Author Organization [facility] Address [address] [place] [address] Care Team Providers Care Citrix Lead Name Role Phone Evans Casas MD Primary Care Provider [phone] Encounter Details DateTypeDepartmentCare Team (Latest Contact Info)Gviiusqpwjq03/20/2025linisync Result Encounter [facility] External Department Unsolicited Wilton Herrmann, DO [address] [place], [place] [id number] Social History Tobacco UseTypesPacks/DayYears UsedDateSmoking Tobacco: NeverSmokeless Tobacco: NeverAlcohol UseStandard Drinks/WeekCommentsNever0 (1 standard drink = 0.6 oz pure alcohol)PHQ-2AnswerDate RecordedPatient Health Questionnaire-2 Score0 03/03/2025Estimated Date of FnmmkohoMkifbcqqXsa25/05/2026ased on last menstrual period of 07/28/2024Sex and Gender InformationValueDate RecordedSex Assigned at BirthNot on fileLegal DeoDulvcq90/15/2023 11:19 PM EDTGender IdentityNot on fileSexual OrientationNot on filedocumented as of this encounter Plan of Treatment Not on file documented as of this encounter Procedures Procedure NamePriorityDate/TimeAssociated DiagnosisCommentsALL CBC WITH AUTO LJWHCqkfvmj98/20/2025 5:51 AM EST documented in this encounter Results * (ABNORMAL) ALL CBC WITH AUTO DIFF (04/18/2025 5:51 AM EST)ComponentValueRef RangeTest MethodAnalysis TimePerformed AtPathologist SignatureTBH WBC8.64.0 - 11.0 10 3/uLTBHTBH RBC3.41(L)4.20 - 5.40 10 6/uLTBHTBH HGB10.5(L)12.0 - 16.0 g/dLTBHTBH HCT30.3(L)36.0 - 48.0 %TBHTBH MCV88.981.0 - 99.0 fLTBHTBH MCH30.8 26.7 - 34.0 pgTBHTBH MCHC34.729.9 - 35.2 g/dLTBHTBH RDW13.311.0 - 15.0 %TBHTBH [id number] - 450 10 3/uLTBHTBH MPV10.19.5 - 13.5 fLTBHNEUTROPHILS PERCENT AUTO 60.643.0 - 75.0 %TBHLYMPHOCYTES PERCENT AUTO29.020.5 - 60.0 %TBHMONOCYTES PERCENT AUTO8.61.7 - 12.0 %TBHTBH EO %1.00.9 - 7.0 %TBHBASOPHILS PERCENT AUTO 0.30.2 - 2.0 %TBHIMMATURE GRANULOCYTES PCT AUTO0.50.0 - 0.5 %TBHNEUTROPHILS ABSOLUTE AUTO5.21.4 - 6.5 10 3/uLTBHLYMPHOCYTES ABSOLUTE AUTO2.51.2 - 3.8 10 3/uLTBHMONOCYTES ABSOLUTE AUTO0.70.3 - 0.8 10 3/uLTBHTBH EO #0.10.0 - 0.7 10 3/uLTBHBASOPHILS ABSOLUTE AUTO0.00.0 - 0.1 10 3/uLTBHIMMATURE GRANULOCYTES ABS AUTO0.04(H)0.00 - 0.03 10 3/uLTBHSpecimen (Source)Anatomical Location / LateralityCollection Method / VolumeCollection TimeReceived Time04/18/2025 5:51 AM EST04/18/2025 6:18 AM EST Narrative [facility] - 04/18/2025 6:34 AM EST Authorizing ProviderResult TypeResult StatusCorey Montez DOCLINISYNCFinal Result Performing OrganizationAddressCity/State/ZIP CodePhone Number [facility] documented in this encounter Visit Diagnoses Not on filedocumented in this encounter Care Teams Team MemberRelationshipSpecialtyStart DateEnd Date Evans Casas MD [address] [place] [address] PCP - GeneralFamily Medicine11/07/23documented as of this encounter
--- OUTSIDE RECORDS SUMMARY | 2025-04-21 08:21 | XMS_ITS | Encounter Summary ---
Author Organization [facility] Address [address] [place] [address] Care Team Providers Care Dramatic Critic Name Role Phone Evans Casas MD Primary Care Provider [phone] Encounter Details DateTypeDepartmentCare Team (Latest Contact Info)Kignfvtcsnj19/15/2025linisync Result Encounter [facility] External Department Unsolicited Wilton Herrmann, DO [address] [place], [place] [phone] Social History Tobacco UseTypesPacks/DayYears UsedDateSmoking Tobacco: NeverSmokeless Tobacco: NeverAlcohol UseStandard Drinks/WeekCommentsNever0 (1 standard drink = 0.6 oz pure alcohol)PHQ-2AnswerDate RecordedPatient Health Questionnaire-2 Score0 03/03/2025Estimated Date of LzpdryvxHhynxqwaDvt36/05/2026ased on last menstrual period of 07/28/2024Sex and Gender InformationValueDate RecordedSex Assigned at BirthNot on fileLegal GgmXthynr70/15/2023 11:19 PM EDTGender IdentityNot on fileSexual OrientationNot on filedocumented as of this encounter Plan of Treatment Not on file documented as of this encounter Procedures Procedure NamePriorityDate/TimeAssociated DiagnosisCommentsAMNISURERoutine 04/13/2025 3:30 PM EST URINE CULTURE - IGYFMuugnto05/15/2025 3:25 PM EST TBH UA (CLEAN/CATCH) FLOOR TECH/MICRO IF IND.Mpxflgy3404/13/2025 3:25 PM EST documented in this encounter Results * AMNISURE (04/13/2025 3:30 PM EST)ComponentValueRef RangeTest MethodAnalysis TimePerformed AtPathologist SignatureTBH AMNISURENEGATIVENEGATIVETBHSpecimen (Source)Anatomical Location / LateralityCollection Method / VolumeCollection TimeReceived Time04/13/2025 3:30 PM EST04/13/2025 3:44 PM EST Narrative [facility] - 04/13/2025 3:58 PM EST Authorizing ProviderResult TypeResult StatusCorey Montez DOLAB BLOOD ORDERABLES Final ResultPerforming OrganizationAddressCity/State/ZIP CodePhone Number [facility] * URINE CULT[facility] - [facility] (04/13/2025 3:25 [...] BLOOD ORDERABLES Final ResultPerforming OrganizationAddressCity/State/ZIP CodePhone Number [facility] * (ABNORMAL) [facility] UA (CLEAN/CATCH) FLOOR TECH/MICRO IF IND. (04/13/2025 3:25 PM EST) ComponentValueRef [...] DOCLINISYNCFinal Result Performing OrganizationAddressCity/State/ZIP CodePhone Number [facility] documented in this encounter Visit Diagnoses Not on filedocumented in this encounter Care Teams Team MemberRelationshipSpecialtyStart DateEnd Date Evans Casas MD [address] [facility] [place] [address] PCP - GeneralFamily Medicine11/07/23documented as of this encounter
--- OUTSIDE RECORDS SUMMARY | 2025-04-21 08:21 | XMS_ITS | Clinical Summary ---
Author Organization [facility] Address [address] [place] [address] Care Team Providers Care Professional Model Name Role Phone Evans Casas MD Primary Care Provider [phone] Allergies Active AllergyReactionsCriticalityNoted DateCommentsCiprofloxacinGI intolerance 04/19/2023iprofloxacin-Fluocinolone Pf05/19/2019 Other Reaction(s): Other: See Comments Dizziness, weakness sweating Culqvmh4809/10/2017 Other Reaction(s): GI Disturbance, GI Upset Diarrhea Diarrhea Lactose Intolerance (Gi)11/15/2023 Other Reaction(s): Illness Imxhtixjouy02/06/2021 Other Reaction(s): Other (See Comments) VgqxoGmrbdUwn63/26/2018 seasonal Other Reaction(s): Other (See Comments) Medications MedicationSigDispense QuantityRefillsLast FilledStart DateEnd DateStatus Multiple Vitamin (Multi-Vitamin) tablet Take 1 tablet by mouth in the morning.Active levothyroxine (Synthroid) 25 MCG tablet Indications:Abnormal TSHTake 1 tablet (25 mcg) by mouth in the morning. Take before meals. 30 tablet 110//[id number]//6Active enoxaparin (Lovenox) 40 MG/0.4ML injection 1 (one) time each day at the same timeActive docusate sodium (Colace) 50 MG capsule Take 100 mg by mouth in the morning and 100 mg before bedtime.Active polyethylene glycol, PEG, 3350 (Glycolax) 17 GM/SCOOP powder Take 17 g by mouth DailyActive Alcohol Swabs (Alcohol Prep Pad) 70 % pads Indications:Second trimester ([facility]),13 weeks gestation of ([facility]),Multigravida of advanced maternal age in second trimester ([facility]), Gestational diabetes mellitus (GDM), antepartum, gestational diabetes method of control unspecified([facility]),Elevated glucose tolerance testApply 1 Pad topically Daily Use four times daily to check FSBS. 150 each 5Active Blood Glucose Monitoring Suppl (D-Safe N Clear Glucometer) w/Device kit Indications:Second trimester ([facility]),13 weeks gestation of ([facility]),Multigravida of advanced maternal age in second trimester ([facility]), Gestational diabetes mellitus (GDM), antepartum, gestational diabetes method of control unspecified([facility]),Elevated glucose tolerance test1 kit Daily [...] diabetes method of control unspecified([facility])Take 3 tablets (1,500 mg) by mouth in the evening. Take with meals Do not crush, chew, or split. 90 tablet 5Active Active Problems ProblemNoted DateDiagnosed DateH/O loss01/05/2025Multigravida of advanced maternal age in second trimester ([facility])01/05/2025Thyroid xdoppbu3001/05/2025 Referred otalgia of right ear11/19/2023LPRD (laryngopharyngeal reflux disease) 11/19/2023cute on chronic vesicular eczema of hands and feet11/15/2023lood pressure elevated without history of HTN11/15/2023MI 37.0-37.9, adult11/15/2023 Cold meyglhqegxm56/18/2024eviated vxgqvz8911/15/2023ry mouth11/15/2023Elevated blood pressure rrfqeed9311/15/2023Environmental zvezstldq66/18/2024H/O: rxqhngnbxsfyuh17/18/2024History of dxrfrs6611/15/2023History of cerebrovascular urcfabth25/18/2024 Overview (11/15/2023): reported by pt - related to antiphospholipid syndrome History of COVID-19011/15/2023History of gestational yloidwev23/18/2024History of kidney fegyvq2011/15/2023Hx of iron deficiency taewne7211/15/2023Immunization not carried out because of patient dgcaymoz20/18/2024Iron txgoqrbgqu79/18/2024 Irregular uterine /18/2024Morbid nifncbn2811/15/2023Nasal polyps 11/15/2023Non-vjlbvp7811/15/2023OSA (obstructive sleep apnea)11/15/2023aresthesia of bilateral legs11/15/2023re-/18/2024Right lower quadrant pain 4Right otitis huhqiyr0211/15/2023Salivary gland /18/2024Snoring 11/15/2023bdominal pain4Acute bronchitis due to yojmrmypf19/13/2024 Dyjfcvv5006/12/2023ysfunction of eustachian tube06/12/20236253Nuufwba16/13/2024 Jrjxozdecsdq50/13/2024Inhalation xzfbpl0806/12/2023Lactation problem ([facility]) 4Psychogenic vfgzwshgeagkvpty16/13/2024Suspected severe acute respiratory syndrome coronavirus 2 (SARS-CoV-2) yxwecfpwi07/13/2024Hypoglycemia 06/12/2023rimary hypercoagulable state ([facility])08/01/2022estational diabetes mellitus (GDM), antepartum ([facility])01/26/2022Genitourinary odlqugqj09/22/2022 Muscle mhfjecvfezntl22/22/2022nticoagulant long-term use02/22/2020 Cerebrovascular accident (CVA) due to stenosis of middle cerebral artery 02/22/2020Anemia complicating childbirth ([facility])01/16/2020First degree perineal laceration during delivery ([facility])01/16/2020Acute posthemorrhagic ikvfpx2501/16/2020Other immediate hemorrhage ([facility])01/16/2020 Personal history of urinary (tract) kucoshbjhc32/18/2020Single live ([facility])01/15/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 ([facility])01/08/2020Pruritus, eoltavknfus82/04/2020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)12/30/201932 weeks gestation of ([facility])11/28/2019Thrombocytopenia, mcevhuybnws97/23/2020Other general symptoms and signs10/28/2019Urinary tract obfafcmcv72/18/2020 Blqlhicwsaxa76/28/2020SVT (supraventricular tachycardia)08/26/2019 Antiphospholipid antibody syndrome ([facility])07/07/2019Other bacterial infections of unspecified site06/27/2019Less than 8 weeks gestation of ([facility]) 06/05/2019Encounter for supervision of normal , unspecified, first trimester ([facility])05/29/2019Cerebral infarction, rzpmtixjagb91/17/2020 Deficiency of other specified B group aksscvem40/17/2035Bdqvkeikqcal77/17/2020 Unspecified condition associated with female genital organs and menstrual cycle 05/09/2019Other specified noninflammatory disorders of oxujim5602/21/2019Frequency of iryqqjmzvex77/23/2019Unspecified ovarian cyst, right side02/06/2019 Jcydungswpm81/09/2019Coagulation defect, unspecified ([facility])02/05/2019 Dizziness and jqjubhzaq36/09/2019Long term (current) use of antithrombotics/gpoyvhbuuhdrp40/09/2019Other acute postprocedural pain02/03/2019 Pelvic and perineal pain02/01/2019Syncope and ytznkolo83/04/2019Raised antibody titer09/25/2017Migraine without aura and without status migrainosus, not mcfnuxaedoi62/16/2018Antiphospholipid antibody ftkkecwy56/14/2018Fatigue 12/29/2016Idiopathic progressive nuxanmmjij59/01/2017Pain in joint12/29/2016 Estimated Date of BpuhfqxsKomojsdmCsl72/05/2026ased on last menstrual period of 07/28/2024 Encounters DateTypeDepartmentCare KdfsOutbirubksd35/20/2025linisync Result Encounter [facility] Unsolicited Mya Herrmann, DO 04/17/2025linisync Result Encounter [facility] External Department Unsolicited Mya Herrmann, DO 04/17/2025linisync Result Encounter [facility] External Department Unsolicited Mya Herrmann, DO 04/16/2025linisync Result Encounter [facility] External Department Unsolicited Mya Herrmann, DO 04/16/2025Telephone [facility] [address] [place] [address] Mya Herrmann, DO 04/15/2025 1:50 PM ESTRoutine [facility]ATH[facility]EN [address] [place] [address] Mya Herrmann, DO Third trimester ([facility]); 37 weeks gestation of ([facility])04/15/2025bstract [facility] [address] [place] [address] Mya Herrmann, DO 04/15/2025Telephone [facility] [address] [place] [address] Petra Houston PA 04/13/2025External Result Encounter [facility] External Department Unsolicited Mya Herrmann, DO 5Clinisync Result Encounter [facility] External Department Unsolicited Mya Herrmann, DO 04/13/2025Telephone [facility] [address] [place] [address] Mya Herrmann, DO 5Clinisync Result Encounter [facility] External Department Unsolicited Mya Herrmann, DO 04/08/2025 1:40 PM ESTRoutine [facility] [place] [facility] [address] [address] Mya Herrmann, DO 36 weeks gestation of ([facility]); Third trimester ([facility]); Anemia complicating childbirth ([facility]); Anticoagulant long-term use; Antiphospholipid antibody positive; Antiphospholipid antibody syndrome ([facility]); Thyroid haiackd08/10/2025Clinisync Result Encounter [facility] External Department Unsolicited Mya Herrmann, DO 5Bamboo flowsheet [facility] ROBBGYJuaquin [address] [place] [address] Mya Herrmann, DO 5Abstract [facility] [address] [place] [address] Mya Herrmann, DO 5Clinisync Result Encounter [facility] External Department Unsolicited Mya Herrmann, DO 03/25/2025 11:10 AM ESTRoutine [facility] [address] [place] [address] Mya Herrmann, DO Third trimester ([facility]); 34 weeks gestation of ([facility]); Anemia complicating childbirth ([facility]); Anticoagulant long-term use; Antiphospholipid antibody positive; Antiphospholipid antibody syndrome ([facility]); Thyroid /26/2025Clinisync Result Encounter [facility] External Department Unsolicited Mya Herrmann, DO 5Bamboo flowsheet [facility] OBARIELLE [address] [place] [address] Mya Herrmann, DO 5Abstract [facility] [address] [place] [address] Mya Herrmann, DO 5Clinisync Result Encounter [facility] External Department Unsolicited Mya Herrmann, DO 5Clinisync Result Encounter [facility] External Department Unsolicited Mya Herrmann, DO 03/13/2025linisync Result Encounter [facility] External Department Unsolicited Mya Herrmann, DO 03/10/2025 9:50 AM ESTRoutine [facility] [address] [place] [address] Mya Herrmann, DO 32 weeks gestation of ([facility]); Third trimester ([facility]); Anemia complicating childbirth ([facility]); Anticoagulant long-term use; Antiphospholipid antibody positive; Blood pressure elevated without history of HTN; Coagulation defect, unspecified ([facility]); Antiphospholipid antibody syndrome ([facility]); Thyroid disease; Multigravida of advanced maternal age in third trimester ([facility])03/10/2025 Bamboo flowsheet [facility] [address] [place] [address] Mya Herrmann, DO 5Clinisync Result Encounter [facility] External Department Unsolicited Mya Herrmann, DO 03/04/2025bstract [facility] [address] [place] [address] Mya Herrmann, DO 03/03/2025Patient Outreach [facility] [address] [place] [address] Petra Whitmore LPN 02/27/2025linisync Result Encounter [facility] External Department Unsolicited Mya Herrmann, DO 02/23/2025 9:00 AM EDTRout[place] [address] Mya Herrmann, DO Third trimester ([facility]); 30 weeks gestation of ([facility])02/23/2025amboo flowsheet [facility] [address] [place] [address] Mya Herrmann, DO 02/20/2025linisync Result Encounter [facility] External Department Unsolicited Mya Herrmann, DO 02/20/2025linisync Result Encounter [facility] External Department Unsolicited Mya Herrmann, DO 02/17/2025linisync Result Encounter [facility] External Department Unsolicited Mya Herrmann, DO 02/17/2025bstract [facility] [address] [address] Mya Herrmann, DO 02/09/2025 10:30 AM EDTRoutine [facility] [address] [place] [address] Mya Herrmann, DO Third trimester ([facility]); 28 weeks gestation of ([facility]); Anemia complicating childbirth ([facility]); Anticoagulant long-term use; Antiphospholipid antibody positive; Blood pressure elevated without history of HTN; Coagulation defect, unspecified ([facility])02/09/2025bstract [facility] [address] [address] Mya Herrmann, DO 02/03/2025Patient Outreach [facility] [address] [place] [address] Petra Whitmore LPN 01/21/2025Telephone [facility] [address] [place] [address] Celia Keith NP from Last 3 Months Family History Medical HistoryRelationNameCommentsCerebrovascular AccidentFatherDiabetesFather Heart problemsMaternal GrandfatherMental illnessMaternal GrandmotherCancer Paternal GrandfatherDiabetesPaternal GrandfatherCancerPaternal Grandmother DiabetesPaternal GrandmotherDiabetesSisterRelationNameStatusCommentsFather Maternal GrandfatherMaternal GrandmotherPaternal GrandfatherPaternal Grandmother Sister Social History Tobacco UseTypesPacks/DayYears UsedDateSmoking Tobacco: NeverSmokeless Tobacco: Never Tobacco Cessation:Counseling Given: Not Answered Alcohol UseStandard Drinks/WeekCommentsNever0 (1 standard drink = 0.6 oz pure alcohol)PHQ-2AnswerDate RecordedPatient Health Questionnaire-2 Ssvxo84105/03/2024 Estimated Date of JdufcnsfUmfiwivsIpi77/05/2026ased on last menstrual period of 07/28/2024Sex and Gender InformationValueDate RecordedSex Assigned at BirthNot on fileLegal PksIpqzmc08/15/2023 11:19 PM EDTGender IdentityNot on file Sexual OrientationNot on file Last Filed Vital Signs Vital SignReadingTime TakenCommentsBlood Uexnfzfn904/7404/15/2025 2:45 PM EST Pulse--Temperature--Respiratory Rate--Oxygen Saturation--Inhaled Oxygen Concentration--Xjfxqs74.8 kg (209 lb)04/15/2025 2:45 PM KSWNvmszt045.6 cm (5' 6 )11/19/2023 1:48 PM EDTBody Mass Index33.7311/19/2023 1:48 PM EDT Plan of Treatment Health MaintenanceDue DateLast DoneCommentsHPV/Diiald6010/22/2015COVID-19 Vaccine ( season)2024Influenza Vaccine (#1)2024ervical Cancer Wkmlpxvio16/18/2025Pap Smear2Pneumococcal Vaccine: Pediatrics (0 to 5 Years) and At-Risk Patients (6 to 64 Years)Aged OutNo longer eligible based on patient's age to complete this topic Procedures Procedure NamePriorityDate/TimeAssociated DiagnosisCommentsALL CBC WITH AUTO FQYEDxupkqk64/20/2025 5:51 AM EST US OB CYHHJG3404/17/2025 9:17 AM EST US OB BPP W NON-VJKGKD4704/17/2025 9:17 AM EST [facility] DRUG SCREEN RAPID (URINE)Toaxitg4204/16/2025 11:30 PM EST HMHP CBC WITH PLATELET NO IBJGMRKBPOQUNmzedtc87/18/2025 12:08 AM EST POCT URINALYSIS XAZLYQZBCjwryva68/17/2025 2:45 PM EST 37 weeks gestation of ([facility]) HLVYVXHJHufhafc14/15/2025 3:30 PM EST URINE CULTURE - XOMHWqdmiai00/15/2025 3:25 PM EST [facility] UA (CLEAN/CATCH) ASSISTANT RESEARCH SCIENTIST/MICRO IF IND.Nytfoay2404/13/2025 3:25 PM EST CULTURE, URINE, NRKTHSWGaudtfg92/15/2025 3:25 PM EST US OB BPP W NON-CBIAXU9304/09/2025 10:07 PM EST POCT URINALYSIS THMXOVQKUthiusf91/10/2025 2:12 PM EST 36 weeks gestation of ([facility]) Third trimester ([facility]) ORGANISM ROTOHITBHCMNMCMnlfeor10/10/2025 1:57 PM EST STREP GP B CULTURE+OODPDlgrlrn71/10/2025 1:57 PM EST US OB BPP W NON-LZENXU5704/02/2025 8:01 PM EST US OB BPP W NON-ECRYIO4003/25/2025 8:58 PM EST POCT URINALYSIS PRVGVEBGLpupphe23/26/2025 11:31 AM EST Third trimester ([facility]) US OB BPP W NON-EMNANZ3503/19/2025 11:51 PM EST US OB UIOKGP2803/19/2025 11:51 PM EST US OB BPP W NON-BUBSEY9403/13/2025 7:55 AM EST POCT URINALYSIS MEMLAOZKLiqtrfd24/11/2025 10:06 AM EST 32 weeks gestation of ([facility]) Third trimester ([facility]) US OB BPP W NON-XAOEFH3003/06/2025 8:10 AM EST US OB BPP W NON-YCDGBL8302/27/2025 10:53 AM EDT POCT URINALYSIS TQHSZOUUPtibtou89/27/2025 9:38 AM EDT 30 weeks gestation of ([facility]) US OB TDQQQY2202/20/2025 8:37 AM EDT US OB BPP W NON-IPBAWT7302/20/2025 8:37 AM EDT ALL THYROID STIM RMYNKCQQraduou12/21/2025 1:31 PM EDT ALL CBC WITH AUTO JLMCHgdhitc95/21/2025 1:31 PM EDT POCT URINALYSIS PQXVMZVADvinpss77/13/2025 10:55 AM EDT 28 weeks gestation of ([facility]) PAP ZKXYDNflfdjv08/18/2022 12:00 AM EDTfrom Last 3 Months or Most Recently Relevant to Health Maintenance Results * (ABNORMAL) ALL CBC WITH AUTO DIFF (04/18/2025 5:51 AM EST) Only the most recent of2 resultswithin the time period is included. ComponentValueRef RangeTest MethodAnalysis TimePerformed AtPathologist Signature [facility] WBC8.64.0 - 11.0 10 3/uLTBHTBH RBC3.41(L)4.20 - 5.40 10 6/uLTBHTBH HGB10.5 (L)12.0 - 16.0 g/dLTBHTBH HCT30.3(L)36.0 - 48.0 %TBHTBH MCV88.981.0 - 99.0 fLTBH TBH MCH30.826.7 - 34.0 pgTBHTBH MCHC34.729.9 - 35.2 g/dLTBHTBH RDW13.311.0 - 15.0 %TBHTBH OOU768041 - 450 10 3/uLTBHTBH MPV10.19.5 - 13.5 fLTBHNEUTROPHILS PERCENT AUTO60.643.0 - 75.0 %TBHLYMPHOCYTES PERCENT AUTO29.020.5 - 60.0 %TBH MONOCYTES PERCENT AUTO8.61.7 - 12.0 %TBHTBH EO %1.00.9 - 7.0 %TBHBASOPHILS PERCENT AUTO0.30.2 - 2.0 %TBHIMMATURE GRANULOCYTES PCT AUTO0.50.0 - 0.5 %TBH NEUTROPHILS ABSOLUTE AUTO5.21.4 - 6.5 10 3/uLTBHLYMPHOCYTES ABSOLUTE AUTO2.51.2 - 3.8 10 3/uLTBHMONOCYTES ABSOLUTE AUTO0.70.3 - 0.8 10 3/uLTBHTBH EO #0.10.0 - 0.7 10 3/uLTBHBASOPHILS ABSOLUTE AUTO0.00.0 - 0.1 10 3/uLTBHIMMATURE GRANULOCYTES ABS AUTO0.04(H)0.00 - 0.03 10 3/uLTBHSpecimen (Source)Anatomical Location / LateralityCollection Method / VolumeCollection TimeReceived Time 04/18/2025 5:51 AM EST04/18/2025 6:18 AM EST Narrative CLINISYNC - 04/18/2025 6:34 AM EST Authorizing ProviderResult TypeResult StatusCorey Montez DOCLINISYNCFinal Result Performing OrganizationAddressCity/State/ZIP CodePhone Number CLINISYNC [facility] * US OB GROWTH (04/17/2025 9:17 AM EST) Only the most recent of3 resultswithin the time period is included. Anatomical RegionLateralityModalityOtherSpecimen (Source)Anatomical Location / LateralityCollection Method / VolumeCollection TimeReceived Time04/17/2025 9:17 AM EST Narrative 04/17/2025 9:19 AM EST [facility] ?[address] ? [place] [address] ? Ultrasound Report ? Signed ? Patient: JUSTICE,MADHU S ?MR#: [id number] ?? : 1985 ?Acct:[id number] ?? Age/Sex: 39 / F ?ADM Date: 12/18/25 ?? Loc: US ? Attending Dr: Mya Herrmann D.O. ? Ordering Physician: Mya Herrmann D.O. ?? Date of Service: 04/16/25 ?? Procedure(s): US OB growth ?? Accession Number(s): [id number] ? cc: Mya Herrmann D.O.; Physician,Non-Staff MGiovanni ? [facility] ? [address] [facility] ? [place] [address] ? Patient Name: ?? MADHU RENDON ? MRN: [facility]:[id number] ? date: 1985 ?Sex: F ?? Assigned Patient Location: [facility] ?? Current Patient Location: [facility] ?? Accession/Order Number: [id number] ?? Exam Date: 04/16/2025 ??19:26 ?Report Date: 04/17/2025 ??09:17 ? At the request of: ?? MYA ??MONTEZ ??DO ? Procedure: ??US OB growth ? CLINICAL DATA: Third trimester . ? ULTRASOUND OB GROWTH ? COMPARISON: 03/19/2025 ? There is a single live intrauterine gestation in cephalic presentation. ??There ?? is cardiac and somatic activity with heart rate 134 bpm. ??The amniotic ?? fluid index measures 15.1 cm. ??The following measurements were obtained: ?? Biparietal diameter ?9.0 cm ?? 36 weeks 3 days ?39% ?? Head circumference ?33.9 cm ?? 38 weeks 6 days ?63% ?? Abdominal circumference ? 34.6 cm ?? 38 weeks 3 days ?88% ?? Femur length ? 7.2 cm ?? 36 weeks 4 days ?30% ?? The composite ultrasound age based on these measurements is 37 weeks 4 days ?? +/- 2 weeks 4 days. ??The estimated delivery is 05/03/2025. ??The estimated ?? weight is 7 lbs. 5 oz. +/- 1 pound 2 ounces (70%). ? US/US OB growth ?? IMPRESSION: ? SINGLE LIVE INTRAUTERINE GESTATION WITH ULTRASOUND AGE OF 37 WEEKS 4 DAYS. ? BIOPHYSICAL PROFILE: ? COMPARISON: 04/09/2025 ? FINDINGS: ? TONE: 1 or more [...] 2 cm ? [Y] ? 2/2 ?SARAHI: 15.1 cm ? Total score: ? 8/8 ? IMPRESSION: ? NORMAL BIOPHYSICAL PROFILE ? Impression dictated by: Pamela Pisano M.D. ??04/17/2025 9:17 AM ? Dictation Location: RADIO-PC-30 ? Electronically authenticated by: [id number] ??Y ?? Date: 04/17/2025 ??09:17 ? Dictated By: ?Pamela Pisano M.D. ? Signed By: ?04/17/2519 ? DD/ 6 ? TD/TT: ? Correctional Manager: Procedure Note Radiology, Radiologist, - 04/17/2025 [place] [address] Ultrasound Report Signed Patient: MADHU RENDON [facility]#: [id number] : 1985Acct:[id number] Age/Sex: 39 / FADM Date: 04/16/25 Loc: US Attending Dr: Mya Herrmann D.O. Ordering Physician: Mya Herrmann D.O. Date of Service: 04/16/25 Procedure(s): US OB growth Accession Number(s): [id number] cc: Mya Herrmann D.O.; Physician,Non-Staff M.DLazara The [place] [id number] Patient Name: MADHU RENDON MRN: TB:[id number] date: 1985 Sex: F Assigned Patient Location: [facility] Current Patient Location: [facility] Accession/Order Number: [id number] Exam Date: 04/16/2025 19:26 Report Date: 04/17/2025 09:17 At the request of: MYA HERRMANN DO Procedure: US OB growth CLINICAL DATA: Third trimester . ULTRASOUND OB GROWTH COMPARISON: 03/19/2025 There is a single live intrauterine gestation in cephalic presentation.There is cardiac and somatic activity with heart rate 134 bpm. Theamniotic fluid index measures 15.1 cm. The following measurements were obtained: Biparietal diameter 9.0 cm 36 weeks 3 days 39% Head circumference 33.9 cm 38 weeks 6 days 63% Abdominal circumference 34.6 cm 38 weeks 3 days 88% Femur length 7.2 cm 36 weeks 4 days30% The composite ultrasound age based on these measurements is 37 weeks 4days +/- 2 weeks 4 days. The estimated delivery is 05/03/2025. The estimatedfetal weight is 7 lbs. 5 oz. +/- 1 pound 2 ounces (70%). US/US OB growth IMPRESSION: SINGLE LIVE INTRAUTERINE GESTATION WITH ULTRASOUND AGE OF 37 WEEKS 4 DAYS. BIOPHYSICAL PROFILE: COMPARISON: 04/09/2025 FINDINGS: TONE: 1 or more episodes of [...] greater than 2 cm [Y] 2/2 SARAHI: 15.1 cm Total score: 8/8 IMPRESSION: NORMAL BIOPHYSICAL PROFILE Impression dictated by: Pamela Pisano M.D. 04/17/2025 9:17 AM Dictation Location: [facility] Electronically authenticated by: [id number] Y Date: 509:17 Dictated By: Pamela Pisano M.D. Signed By:12/918 DD/ 6 TD/TT: Correctional Manager: Authorizing ProviderResult TypeResult StatusCorey Montez DOCLINISYNC IMAGINGFinal Result * US OB BPP W NON-STRESS (04/17/2025 9:17 AM EST) Only the most recent of9 resultswithin the time period is included. Anatomical RegionLateralityModalityOtherSpecimen (Source)Anatomical Location / LateralityCollection Method / VolumeCollection TimeReceived Time04/17/2025 9:17 AM EST Narrative 04/17/2025 9:19 AM EST [facility] ?[address] ? [place], [place] [address] ? Ultrasound Report ? Signed ? Patient: JUSTICE,MADHU S ?MR#: [id number] ?? : 1985 ?Acct:[id number] ?? Age/Sex: 39 / F ?ADM Date: 04/16/25 ?? Loc: US ? Attending Dr: Mya Herrmann D.O. ? Ordering Physician: Mya Herrmann D.O. ?? Date of Service: 04/16/25 ?? Procedure(s): US OB BPP w non-stress ?? Accession Number(s): [id number] ? cc: Mya Herrmann D.O.; Physician,Non-Staff M.D. ? [facility] ? [address] ? [place] [address] ? Patient Name: ?? MADHU RENDON ? MRN: [facility]:[id number] ? date: 1985 ?Sex: F ?? Assigned Patient Location: [place] ?? Current Patient Location: [facility] ?? Accession/Order Number: [id number] ?? Exam Date: 04/16/2025 ??19:26 ?Report Date: 04/17/2025 ??09:17 ? At the request of: ?? MYA ??MONTEZ ??DO ? Procedure: ??US OB growth ? CLINICAL DATA: Third trimester . ? ULTRASOUND OB GROWTH ? COMPARISON: 03/19/2025 ? There is a single live intrauterine gestation in cephalic presentation. ??There ?? is cardiac and somatic activity with heart rate 134 bpm. ??The amniotic ?? fluid index measures 15.1 cm. ??The following measurements were obtained: ?? Biparietal diameter ?9.0 cm ?? 36 weeks 3 days ?39% ?? Head circumference ?33.9 cm ?? 38 weeks 6 days ?63% ?? Abdominal circumference ? 34.6 cm ?? 38 weeks 3 days ?88% ?? Femur length ? 7.2 cm ?? 36 weeks 4 days ?30% ?? The composite ultrasound age based on these measurements is 37 weeks 4 days ?? +/- 2 weeks 4 days. ??The estimated delivery is 05/03/2025. ??The estimated ?? weight is 7 lbs. 5 oz. +/- 1 pound 2 ounces (70%). ? US/US OB BPP w non-stress ?? IMPRESSION: ? SINGLE LIVE INTRAUTERINE GESTATION WITH ULTRASOUND AGE OF 37 WEEKS 4 DAYS. ? BIOPHYSICAL PROFILE: ? COMPARISON: 04/09/2025 ? FINDINGS: ? TONE: 1 or more [...] 2 cm ? [Y] ? 2/2 ?SARAHI: 15.1 cm ? Total score: ? 8/8 ? IMPRESSION: ? NORMAL BIOPHYSICAL PROFILE ? Impression dictated by: Pamela Pisano M.D. ??04/17/2025 9:17 AM ? Dictation Location: RADIO-PC-30 ? Electronically authenticated by: [id number] ??Y ?? Date: 04/17/2025 ??09:17 ? Dictated By: ?Pamela Pisano M.D. ? Signed By: ?04/17/25918 ? DD/ 09 ? TD/TT: ? Correctional Manager: Procedure Note Radiology, Radiologist, - 04/17/2025 [place] [address] Ultrasound Report Signed Patient: MADHU RENDON [facility]#: [id number] : 1985Acct:[id number] Age/Sex: 39 / FADM Date: 04/16/25 Loc: US Attending Dr: Mya Herrmann D.O. Ordering Physician: Mya Herrmann D.O. Date of Service: 04/16/25 Procedure(s): US OB BPP w non-stress Accession Number(s): [id number] cc: Mya Herrmann D.O.; Physician,Non-Staff MGiovanni [place] [id number] Patient Name: MADHU RENDON MRN: [id number] date: 1985 Sex: F Assigned Patient Location: Current Patient Location: [facility] Accession/Order Number: [id number] Exam Date: 04/16/2025 19:26 Report Date: 04/17/2025 09:17 At the request of: MYA HERRMANN DO Procedure: US OB growth CLINICAL DATA: Third trimester . ULTRASOUND OB GROWTH COMPARISON: 03/19/2025 There is a single live intrauterine gestation in cephalic presentation.There is cardiac and somatic activity with heart rate 134 bpm. Theamniotic fluid index measures 15.1 cm. The following measurements were obtained: Biparietal diameter 9.0 cm 36 weeks 3 days 39% Head circumference 33.9 cm 38 weeks 6 days 63% Abdominal circumference 34.6 cm 38 weeks 3 days 88% Femur length 7.2 cm 36 weeks 4 days30% The composite ultrasound age based on these measurements is 37 weeks 4days +/- 2 weeks 4 days. The estimated delivery is 05/03/2025. The estimatedfetal weight is 7 lbs. 5 oz. +/- 1 pound 2 ounces (70%). US/US OB BPP w non-stress IMPRESSION: SINGLE LIVE INTRAUTERINE GESTATION WITH ULTRASOUND AGE OF 37 WEEKS 4 DAYS. BIOPHYSICAL PROFILE: COMPARISON: 04/09/2025 FINDINGS: TONE: 1 or more episodes of [...] greater than 2 cm [Y] 2/2 SARAHI: 15.1 cm Total score: 8/8 IMPRESSION: NORMAL BIOPHYSICAL PROFILE Impression dictated by: Pamela Pisano M.D. 04/17/2025 9:17 AM Dictation Location: [place] [address] Electronically authenticated by: [id number] Y Date: 9:17 Dictated By: Pamela Pisano M.D. Signed By:04/17/25918 DD/ 6 TD/TT: Correctional Manager: Authorizing ProviderResult TypeResult StatusCorey Montez DOCLINISYNC IMAGINGFinal Result * [facility] DRUG SCREEN RAPID (URINE) (04/16/2025 [...] OrganizationAddressCity/State/ZIP CodePhone Number [facility] * (ABNORMAL) [facility] CBC WITH PLATELET NO DIFFERENTIAL (04/16/2025 12:08 AM EST) ComponentValueRef RangeTest MethodAnalysis TimePerformed AtPathologist SignatureTBH WBC7.64.0 - 11.0 10 3/uLTBHTBH RBC3.55(L)4.20 - 5.40 10 6/uLTBH TB[facility] HGB10.9(L)12.0 - 16.0 g/dLTBHTBH HCT31.3(L)36.0 - 48.0 %TBHTBH MCV88.281.0 - 99.0 fLTBHTBH MCH30.726.7 - 34.0 pgTBHTBH MCHC34.829.9 - 35.2 g/dLTBHTBH RDW13.211.0 - 15.0 %TBHTBH [id number] - 450 10 3/uLTBHTBH MPV9.99.5 - 13.5 fL TBHSpecimen (Source)Anatomical Location / LateralityCollection Method / Volume Collection TimeReceived Time04/16/2025 12:08 AM EST04/17/2025 12:18 AM EST Narrative CLINISYFLORY - 04/17/2025 12:31 AM EST Authorizing ProviderResult TypeResult StatusCorey Montez YADILINISYNCFinal Result Performing OrganizationAddressCity/State/ZIP CodePhone Number [facility] * (ABNORMAL) POCT urinalysis dipstick manually resulted (04/15/2025 2:45 PM EST) Only the most recent of6 [...] Location / LateralityCollection Method / VolumeCollection TimeReceived ZlnoPrrqv76/17/2025 2:45 PM EST Narrative Authorizing ProviderResult TypeResult StatusCorey Montez DOPOINT OF CARE TEST ENTER/EDIT ORDERABLESFinal Result * AMNISURE (04/13/2025 3:30 PM EST)ComponentValueRef RangeTest MethodAnalysis TimePerformed AtPathologist SignatureTBH AMNISURENEGATIVENEGATIVETBHSpecimen (Source)Anatomical Location / LateralityCollection Method / VolumeCollection TimeReceived Time04/13/2025 3:30 PM EST04/13/2025 3:44 PM EST Narrative CLINISYNC - 04/13/2025 3:58 PM EST Authorizing ProviderResult TypeResult StatusCorey Montez DOLAB BLOOD ORDERABLES Final ResultPerforming OrganizationAddressCity/State/ZIP CodePhone Number [facility] * URINE CULTURE - FR (04/13/2025 3:25 PM EST)ComponentValueRef RangeTest MethodAnalysis TimePerformed AtPathologist SignatureURINE CULTURE - [facility] ??Urine Culture - [facility] SEEFR [facility] RESULT^[facility] RESULT TBHURINE CULTURE - FRMCSEEN SEE SCANNED REPORT, NORMAL^SEE SCANNED REPORT, NORMALTBHSpecimen (Source)Anatomical Location / LateralityCollection Method / VolumeCollection TimeReceived Time04/13/2025 3:25 PM EST04/13/2025 3:44 PM EST Narrative CLINISYNC - 04/15/2025 3:27 PM EST Authorizing ProviderResult TypeResult StatusCorey Montez DOLAB BLOOD ORDERABLES Final ResultPerforming OrganizationAddressCity/State/ZIP CodePhone Number [facility] * (ABNORMAL) [facility] UA (CLEAN/CATCH) ASSISTANT RESEARCH SCIENTIST/MICRO IF IND. (04/13/2025 3:25 PM EST) ComponentValueRef [...] Performing OrganizationAddressCity/State/ZIP CodePhone Number [facility]ISYNC [facility] * Urine culture (04/13/2025 3:25 PM EST)ComponentValueRef RangeTest Method Analysis TimePerformed AtPathologist SignatureFRMC NOTE?20,000 colonies/ml mixed ?bacterial skin contaminants ?2 Days 04/15/2025 12:13 PM [facility] CtrSpecimen (Source)Anatomical Location / LateralityCollection Method / VolumeCollection TimeReceived Time Clean-Voided Midstream (Clean Void Midstream)04/13/2025 3:25 PM EST04/13/2025 8:54 PM EST [facility] - 04/15/2025 12:13 PM EST Diagnosis: VAGINAL FLUID, LOWER BACK PAIN Comment: Authorizing ProviderResult TypeResult StatusCorey Montez DOLAB MICROBIOLOGY - GENERAL ORDERABLESFinal ResultPerforming OrganizationAddressCity/State/ZIP Code Phone Number [facility] [address] [place] [address], [facility] [address] [place] [address] * ORGANISM IDENTIFICATION (04/08/2025 1:57 PM EST)ComponentValueRef [...] BLOOD ORDERABLES Final ResultPerforming OrganizationAddressCity/State/ZIP CodePhone Number [facility] * ALL THYROID STIM HORMONE (02/17/2025 1:31 PM EDT)ComponentValueRef RangeTest MethodAnalysis TimePerformed AtPathologist SignatureTHYROID STIMULATING HORMONE1.7450.358 - 3.740 uIU/mLTBHSpecimen (Source)Anatomical Location / LateralityCollection Method / VolumeCollection TimeReceived Time02/17/2025 1:31 PM EDT1 1:36 PM EDT Narrative CLINISYLA - 02/17/2025 2:40 PM EDT Authorizing ProviderResult TypeResult StatusCorecarmen Herrmann DOCLINISYNCFinal Result Performing OrganizationAddressCity/State/ZIP CodePhone Number [facility] * Pap Smear (02/14/2022 12:00 AM EDT)Specimen (Source)Anatomical Location / LateralityCollection Method / VolumeCollection TimeReceived TimeSwabCervical swab / Unknown Narrative Authorizing ProviderResult TypeResult StatusFazio Nurse Noms Bcp ObLAB CYTOLOGY ORDERABLESFinal ResultPerforming OrganizationAddressCity/State/ZIP CodePhone Number EXTERNAL LAB from Last 3 Months or Most Recently Relevant to Health Maintenance Insurance Care Teams Team MemberRelationshipSpecialtyStart DateEnd Date Evans Casas MD [address] [place] [address] PCP - GeneralFamily Medicine11/07/23
--- OUTSIDE RECORDS SUMMARY | 2025-04-21 08:21 | XMS_ITS | Encounter Summary ---
Author Organization [facility] Address [address], [address] [place] [address] Care Team Providers Care Coverstitch Elastic Attacher Name Role Phone Evans Casas DO Primary Care Provider [phone] Encounter Details DateTypeDepartmentCare Team (Latest Contact Info)Ptnmdashghi98/10/2025bstract [facility] Neurology [address] [place] [address] [address] [place] [address] Peng Osorio MD [address] [facility] [address] [place] [address] Social History Tobacco UseTypesPacks/DayYears UsedDateSmoking Tobacco: NeverSmokeless Tobacco: NeverAlcohol UseStandard Drinks/WeekCommentsNot Currently0 (1 standard drink = 0.6 oz pure alcohol)occasionallyCommentsNoSex and Gender Information ValueDate RecordedSex Assigned at BirthNot on fileLegal TibBxkcmv34/14/2017 2:04 PM EDTGender IdentityNot on fileSexual OrientationNot on filedocumented as of this encounter Plan of Treatment DateTypeDepartmentCare Team (Latest Contact Info)Qlvlbgvlchu89/25/2026 1:45 PM EDTOffice Visit [facility] [address] [place] [address] [address] [place] [address] Peng Osorio MD [address] [facility] [address] [place] [address] 6 MOS FUPdocumented as of this encounter Visit Diagnoses Not on filedocumented in this encounter Care Teams Team MemberRelationshipSpecialtyStart DateEnd Date Evans Casas DO [address] [place] [address] PCP - GeneralFamily Medicine10/04/20documented as of this encounter
--- OUTSIDE RECORDS SUMMARY | 2025-04-21 08:21 | XMS_ITS | Encounter Summary ---
Author Organization [facility] Address [address] [place] [address] Care Team Providers Care Car Seat Upholsterer Name Role Phone Evans Casas MD Primary Care Provider [phone] Encounter Details DateTypeDepartmentCare Team (Latest Contact Info)Kowifencxmy10/15/2025Telephone [facility] [address] [place] [address] Wilton Herrmann DO [address] [place], [facility] Social History Tobacco UseTypesPacks/DayYears UsedDateSmoking Tobacco: NeverSmokeless Tobacco: NeverAlcohol UseStandard Drinks/WeekCommentsNever0 (1 standard drink = 0.6 oz pure alcohol)PHQ-2AnswerDate RecordedPatient Health Questionnaire-2 Score0 03/03/2025Estimated Date of NiyrltfpSsudvcarAzx11/05/2026ased on last menstrual period of 07/28/2024Sex and Gender InformationValueDate RecordedSex Assigned at BirthNot on fileLegal DreUrgqqd62/15/2023 11:19 PM EDTGender IdentityNot on fileSexual OrientationNot [...] call me back. My phone number is [phone]. Thank you, ashleye. Patient not sure it [...] contractions. Patient was advised to go to [facility]. Called talked to Yesi and she states that patient did call there and she was advised to call office but that we would probably have her go over. documented in this encounter Plan of Treatment Not on file documented as of this encounter Visit Diagnoses Not on filedocumented in this encounter Care Teams Team MemberRelationshipSpecialtyStart DateEnd Date Evans Casas MD [address] [place] [address] PCP - GeneralFamily Medicine11/07/23documented as of this encounter
--- OUTSIDE RECORDS SUMMARY | 2025-04-21 08:21 | XMS_ITS | Encounter Summary ---
Author Organization [facility] Address [address] [place] [address] Care Team Providers Care Fence Erector Supervisor Name Role Phone Evans Casas MD Primary Care Provider [phone] Encounter Details DateTypeDepartmentCare Team (Latest Contact Info)Cuxrkajhkcl83/17/2025Telephone [facility] [address] [place] [address] Petra Houston PA [address] [place], [facility]11 Social History Tobacco UseTypesPacks/DayYears UsedDateSmoking Tobacco: NeverSmokeless Tobacco: NeverAlcohol UseStandard Drinks/WeekCommentsNever0 (1 standard drink = 0.6 oz pure alcohol)PHQ-2AnswerDate RecordedPatient Health Questionnaire-2 Score0 03/03/2025Estimated Date of IgsgadwaEgtktvyxOqm38/05/2026Based on last menstrual period of 07/28/2024Sex and Gender InformationValueDate RecordedSex Assigned at BirthNot on fileLegal WamLmztkq56/15/2023 11:19 PM EDTGender IdentityNot on fileSexual OrientationNot [...] Call me back, my phone number is [phone], thank you. Like. Patient was called and she states that she is having some burning pain around tailbone into hip andthen into front. Feels like Harmon castellanos tightening when walking and moving around. [...] Team MemberRelationshipSpecialtyStart DateEnd Date Evans Casas MD [address] [place], [place] [address] [place] [address] PCP - GeneralFamily Medicine11/07/23documented as of this encounter
--- OUTSIDE RECORDS SUMMARY | 2025-04-21 08:21 | XMS_ITS | Encounter Summary ---
Author Organization [facility] Address [facility] [place] [address] Care Team Providers Care Pneumatic Tool Operator Name Role Phone Evans Casas DO Primary Care Provider [phone] Encounter Details DateTypeDepartmentCare Team (Latest Contact Info)Rtmgvdglamo10/09/2025Travel Social History Tobacco UseTypesPacks/DayYears UsedDateSmoking Tobacco: NeverSmokeless Tobacco: NeverAlcohol UseStandard Drinks/WeekCommentsNot Currently0 (1 standard drink = 0.6 oz pure alcohol)ChildcareAnswerDate YonyyvmuNfuqlkjvaPlnqbrs10/31/2019 EmploymentAnswerDate KwzkyjbwRhuupwnximJcmioqi61/31/2019Hunger ScreeningAnswer Date RecordedWithin the past 12 months we worried whether our food would run out before we got money to buy more.Never True01/01/2025Within the past 12 months the food we bought just didn't last and we didn't have money to get more.Never True01/01/2025Purpose - LifeAnswerDate RecordedPurpose and direction in life Uxkhkqx09/11/2021Estimated Date of XtiaycfoJnwzqbvzGrl70/05/2026Based on last menstrual period of 07/28/2024Sex and Gender InformationValueDate Recorded Sex Assigned at BirthNot on fileLegal VgsPttesh68/31/2019 12:25 PM EDTGender IdentityNot on fileSexual OrientationNot on filedocumented as of this encounter Plan of Treatment Not on file documented as of this encounter Visit Diagnoses Not on filedocumented in this encounter Care Teams Team MemberRelationshipSpecialtyStart DateEnd Date Evans Casas DO PCP - GeneralFamily Medicine07/07/19documented as of this encounter
--- OUTSIDE RECORDS SUMMARY | 2025-04-21 08:21 | XMS_ITS | Encounter Summary ---
Author Organization [facility] Address [address] [address] Care Team Providers Care Event Sales Assistant Name Role Phone Evans Casas MD Primary Care Provider [phone] Encounter Details DateTypeDepartmentCare Team (Latest Contact Info)Bcnkkldhecm55/15/2025External Result Encounter [facility] External Department Unsolicited Wilton Herrmann, DO [address] [place], [place] [id number] Social History Tobacco UseTypesPacks/DayYears UsedDateSmoking Tobacco: NeverSmokeless Tobacco: NeverAlcohol UseStandard Drinks/WeekCommentsNever0 (1 standard drink = 0.6 oz pure alcohol)PHQ-2AnswerDate RecordedPatient Health Questionnaire-2 Score0 03/03/2025Estimated Date of NmhrzgtnZoqbfdemEwd75/05/2026ased on last menstrual period of 07/28/2024Sex and Gender InformationValueDate RecordedSex Assigned at BirthNot on fileLegal WiuFpnjnv65/15/2023 11:19 PM EDTGender IdentityNot on fileSexual OrientationNot on filedocumented as of this encounter Plan of Treatment Not on file documented as of this encounter Procedures Procedure NamePriorityDate/TimeAssociated DiagnosisCommentsCULTURE, URINE, BDEMBCPTkqkvas90/15/2025 3:25 PM EST documented in this encounter Results * Urine culture (04/13/2025 3:25 PM EST)ComponentValueRef RangeTest Method Analysis TimePerformed AtPathologist SignatureFRMC NOTE?20,000 colonies/ml mixed ?bacterial skin contaminants ?2 Days 04/15/2025 12:13 PM [facility] CtrSpecimen (Source)Anatomical Location / LateralityCollection Method / VolumeCollection TimeReceived Time Clean-Voided Midstream (Clean Void Midstream)04/13/2025 3:25 PM EST04/13/2025 8:54 PM EST [facility] - 04/15/2025 12:13 PM EST Diagnosis: VAGINAL FLUID, LOWER BACK PAIN Comment: Authorizing ProviderResult TypeResult StatusCorey Montez DOLAB MICROBIOLOGY - GENERAL ORDERABLESFinal ResultPerforming OrganizationAddressCity/State/[facility] Code Phone Number [facility] [address] [place] [address], [facility] [address] [place] [address] documented in this encounter Visit Diagnoses Not on filedocumented in this encounter Care Teams Team MemberRelationshipSpecialtyStart DateEnd Date Evans Casas MD [address] [place] [address] PCP - GeneralFamily Medicine11/07/23documented as of this encounter
--- OUTSIDE RECORDS SUMMARY | 2025-04-21 08:21 | XMS_ITS | Clinical Summary ---
Author Organization Snooxs tem Address [facility] [place], [id number] [address] [place] [address] Care Team Providers Care Financial Intern Name Role Phone Evans Casas DO Primary Care Provider [phone] Allergies Active AllergyReactionsCriticalityNoted DateCommentsCiprofloxacinDizziness 06/19/2019LactalbuminOther (See Comments)Low05/25/2017 Other reaction(s): GI Upset Crampy and gassy LactoseGI Qvdabtcmdjt01/14/2018 Diarrhea Milk Containing Products (Dairy)Other (See Comments)Low05/25/2017 [...] in third trimester controlled on oral hypoglycemic drug12/17/20249675Rkawzf08/08/2025MA (advanced maternal age) multigravida 35+11/04/2024ntiphospholipid syndrome 11/04/20247028Ebspopranbe91/08/4971Jkurzg59/08/2025ntiphospholipid syndrome complicating , zedkwtcxmc92/09/2020Estimated Date of Delivery YzqaqegbDgc17/05/2026Based on last menstrual period of 07/28/2024 Resolved Problems ProblemNoted DateDiagnosed DateResolved DateCerebral infarction, unspecified Migraine without aura and without status migrainosus, not ouwmchlfbss00 Encounters DateTypeDepartmentCare RyuqVcimkvvzmit52/09/2025 1:30 PM ESTTelemedicine [facility]aternal[facility] at [place] [address] [place] [address] Davida Smith PA-C Gestational diabetes mellitus (GDM) in third trimester controlled on oral hypoglycemic drug (Primary Dx)04/07/20258850Nbozcv52/18/2025 2:00 PM ESTTelemedicine [facility] Department of [address] [address] Sam Callahan MD MPH Antiphospholipid syndrome complicating , antepartum (Primary Dx); Antiphospholipid syndrome; History of CVA (cerebrovascular accident); Coordination of complex care; 33 weeks gestation of dqttyynwa61/18/2025Orders Only [facility] Department of [address] [address] Ref Prov, Not In System 03/17/20258148Xoeecv67/12/2025 9:45 AM ESTTelemedicine Maternal- Medicine at [address] [address] Sana Palma MD Khurshid, Nauman, MD Gestational diabetes mellitus (GDM) in second trimester controlled on oral hypoglycemic drug (Primary Dx); Antiphospholipid syyrhxns21/12/5029Ykdiuc87/07/9337Uoztnh88/23/2025Orders Only [facility] Department of [address] [address] Ref Prov, Not In System 02/18/2025Orders Only [facility] Department of [address] [address] Ref Prov, Not In System 02/16/2025 1:45 PM EDTOffice Visit [facility] Department of [facility] [address] [phone] Sam Callahan MD MPH Antiphospholipid syndrome (Primary Dx); Antiphospholipid syndrome complicating , antepartum; History of CVA (cerebrovascular accident); Coordination of complex care; 29 weeks gestation of opspydvww14/20/9954Rjypyy13/14/2025Telephone [facility]- [facility] at [place] [address] [place] [address] Annita Kendall LD 02/06/2025 2:00 PM EDTTelemedicine Maternal- [facility] at [place] [address] [place] [address] Wilfrid Medina MD 27 weeks gestation of (Primary Dx); Multigravida of advanced maternal age in third trimester; Gestational diabetes mellitus (GDM) in second trimester controlled on oral hypoglycemic drug; Antiphospholipid syndrome complicating , antepartum; Antiphospholipid vjtpxclo67/10/5046Lqcuec25/09/2025Travelfrom Last 3 Months Family History Medical CaqfxumKvqqafaoDxcsNkvfteatQvhylsneGzabqiG0BYJtouthKgirwrYbgjsd illness Maternal GrandmotherCancerPaternal GrandfatherDiabetesPaternal LfmcwzjuchqQ4PG CancerPaternal GrandmotherDiabetesPaternal AwwsjyjwlipY4PPXvrbimqhOkwutrB8YF RelationNameStatusCommentsFatherDeceasedMaternal GrandmotherPaternal Grandfather Paternal GrandmotherSister Social History Tobacco UseTypesPacks/DayYears UsedDateSmoking Tobacco: NeverSmokeless Tobacco: Never Tobacco Cessation:Counseling Given: Not Answered Alcohol UseStandard Drinks/WeekCommentsNot Currently0 (1 standard drink = 0.6 oz pure alcohol)ChildcareAnswerDate VirgcrptZhkqveydpDocgbza25/31/2019Employment AnswerDate DpnbtpjyVrpzgafpitNgqfwln41/31/2019Hunger ScreeningAnswerDate RecordedWithin the past 12 months we worried whether our food would run out before we got money to buy more.Never True01/01/2025Within the past 12 months the food we bought just didn't last and we didn't have money to get more.Never True01/01/2025Purpose - LifeAnswerDate RecordedPurpose and direction in life Iclpjar72/11/2021Estimated Date of YgofplavIkwxzwjlDdx97/05/2026ased on last menstrual period of 07/28/2024Sex and Gender InformationValueDate Recorded Sex Assigned at BirthNot on fileLegal XqzVlsjro61/31/2019 12:25 PM EDTGender IdentityNot on fileSexual OrientationNot on file Last Filed Vital Signs Vital SignReadingTime TakenCommentsBlood Ojuyanby889/801 1:44 PM EDT Ntvmh658902/16/2025 1:44 PM EDTTemperature--Respiratory Gwor7450 1:44 PM EDTOxygen Saturation--Inhaled Oxygen Concentration--Vqjzcn24.8 kg (209 lb) 02/16/2025 1:44 PM RSIJlkyaj391.6 cm (5' 6 )02/16/2025 1:44 PM EDTBody Mass Index33.7302/16/2025 1:44 PM EDT Plan of Treatment Health MaintenanceDue DateLast DoneCommentsDepression Rvpnjiqah70/24/1998Adult BMI Follow Up Plan10/22/2003DTaP,Tdap and Td Vaccines (2 - Td or Tdap)07/03/2024 07/03/2014Influenza Xikasmo7012/29/2024Pap Smeardult BMI Iiczaqobw11Tobacco Ikkqaarbs36RSV ( or age 60+ yrs) (No Doses Required)Completed Medical Devices Not on file Procedures Procedure NamePriorityDate/TimeAssociated DiagnosisCommentsEXTERNAL LAB ORDERS / GWTMFXECbcyanw16/18/2025 4:22 PM ESTEXTERNAL LAB ORDERS / RESULTSRoutine 02/19/2025 3:15 PM EDTEXTERNAL LAB ORDERS / PZKZMQSUtmsmbk21/23/2025 3:13 PM EDT EXTERNAL LAB ORDERS / VCZROIYXsoqllk98/22/2025 1:58 PM EDTUS MFM OB FOLLOW-UP, 1 QKSLLRfumvcx93/09/2025 2:10 PM EDT Multigravida of advanced maternal [...] LEUNG : 1985 SEX: F Accession Number: [id number] ORDERING PHYSICIAN: MYA HERRMANN REFERRING PHYSICIAN: MYA HERRMANN Coding Procedures ? 05664: Ultrasound, uterus, real time with image documentation, follow up,transabdominal ? approach per fetus ? 68338: Echocardiography, , cardiovascular system, real time with image documentation (2D), with or ? without M-mode recording; follow-up or repeat study Indication Screening for follow-up survey, Screening for congenital cardiac abnormality , Gestational diabetes, AMA- Supervision of elderly , Supervision of high risk -(MOB son - hypospadia, MOB -son - laryngomalacia ), Obesity in , Hypothyroidism. History OB History ? 7. Para 3 ? V6Q0R5G2 Current Cell free DNA ?Low Risk analysis [...] ? 27 w + 3 d Assigned KLAUIDA: ??05/04/2025 General Evaluation Cardiac activity Present. FHR [...] (oz) ? 4 oz EFW by: ?Hadlock (SAD-LD-UE-FL) Extended Tibia ??46.0 mm 28w 0d 68% [...] Heart/Thorax: 4-chamber view. RVOT view. 3-vessel view. 3-jrsbwh-nannaet view. Great vessels. ? Right lung. Left [...] previously RVOT view ?normal 3-vessel view ??normal 2-xpwhqj-svcwgio view ??normal Aortic arch view ? normal [...] MVP measures 6.7 cm. Recommendations Please see [facility] recommendations from prior clinical and/or ultrasound report [...] LEUNG : 1985 SEX: F Accession Number: [id number] ORDERING PHYSICIAN: MYA HERRMANN REFERRING PHYSICIAN: MYA HERRMANN Coding Procedures 72295: Ultrasound, uterus, real time with image documentation, follow up, transabdominal approach per fetus 55149: Echocardiography, , cardiovascular system, real timewith image documentation (2D), with or without M-mode recording; follow-up or repeat study Indication Screening for follow-up survey, Screening for congenital cardiacabnormality , Gestational diabetes, AMA- Supervision of elderly , Supervision of high risk -(MOB son - hypospadia, MOB -son - laryngomalacia ), Obesity in , Hypothyroidism. History OB History 7. Para 3 [id number] Current Cell free DNA Low Risk analysis [...] EFW (oz) 4 oz EFW by: Hadlock (EQM-JV-FK-FL) Extended Tibia 46.0 mm 28w 0d 68% [...] Heart/Thorax: 4-chamber view. RVOT view. 3-vessel view. 7-kuzrls-tkmtqaksbsz. Great vessels. Right lung. Left lung. Diaphragm. [...] previously RVOT view normal 3-vessel view normal 8-xgkzjx-iuribxs view normal Aortic arch view normal Ductal [...] MVP measures 6.7 cm. Recommendations Please see [facility] recommendations from prior clinical and/or ultrasoundreport documentation. [...]
--- OUTSIDE RECORDS SUMMARY | 2025-04-21 08:21 | XMS_ITS | Clinical Summary ---
Author Organization [facility] Address [address], [address] [place] [address] Care Team Providers Care Dragline Oiler Name Role Phone Evans Casas DO Primary Care Provider [phone] Allergies Active AllergyReactionsCriticalityNoted DateCommentsCiprofloxacinOther (See Comments)06/19/2019Ciprofloxacin-Fluocinolone PfOther [...] elevated without history of HTN12/11/2023ry mouth 12/11/2023Environmental bzombatko47/13/2024H/O: cmluqbmyjfocng98/13/2024History of lnhmiv2312/11/2023History of gestational sybinvkw06/13/2024History of kidney fobemq7212/11/2023Hx of iron deficiency greojs9212/11/2023Immunization not carried out because of patient caqsgxyz30/13/2024Morbid grzcfin0712/11/2023Non-smoker 12/11/2023OSA (obstructive sleep apnea)12/11/2023ight otitis ziyaijf6512/11/2023 Abdominal pain06/12/2023cute bronchitis due to iagqutxmw67/13/2024nxiety 06/12/2023ysfunction of eustachian tube06/12/20232215Yyydksi80/13/2024Hematochezia 06/12/2023History of severe acute respiratory syndrome coronavirus 2 (SARS-CoV-2) lbpdudd7206/12/20239303Jevuwquwpmwf67/13/2024Inhalation vjxsas6006/12/2023 guwtwbj7406/12/2023sychogenic gpnhidraezednjbt27/13/2024Suspected severe acute respiratory syndrome coronavirus 2 (SARS-CoV-2) zcttylvfw31/13/2024 Primary hypercoagulable state08/01/2022estational diabetes mellitus in , unspecified xgtczpp5301/26/2022Genitourinary hsblljjy22/22/2022Muscle idtgrhlinyyfc70/22/2022TIA (transient ischemic attack)06/16/2020erebrovascular accident (CVA) due to stenosis of middle cerebral ocbxhc1302/22/2020Anticoagulant long-term use02/22/2020Acute posthemorrhagic vvycrj2701/16/202039 weeks gestation of pobtqosas29/18/2020Anemia complicating nyoqycrgid28/18/2020Endocrine, nutritional and metabolic diseases complicating azuftnfihn67/18/2020First degree perineal laceration during qqqhpfgi40/18/2020Other immediate auybnazvds22/18/2020Personal history of transient ischemic attack (TIA), and cerebral infarction without residual wqmpkgyb50/18/2020Personal history of urinary (tract) xzzyheegdp95/18/2020Single live birth01/15/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01/08/202038 weeks gestation of pclcomkxr65/09/2020Pruritus, gulkigrwtui94/04/202037 weeks gestation of /04/119005 weeks gestation of zorgchxwd83/01/2020Other speech and language deficits following cerebral /01/2020Other diseases of the blood and blood-forming organs and certain disorders involving the immune mech anism complicating vyjjlsygnf61/25/838365 weeks gestation of dopfkmpzx15/24/2020 34 weeks gestation of byoslldgm54/18/207205 weeks gestation of 12/10/201932 weeks gestation of ybtzfpxtr84/31/2020Thrombocytopenia, unspecified 11/20/2019Other general symptoms and signs10/28/2019Urinary tract infection, site not yyafrcikv56/18/6191Gnjtyhkhywhh89/28/2020SVT (supraventricular tachycardia)08/26/2019Antiphospholipid antibody /09/2020Other bacterial infections of unspecified site06/27/2019Less than 8 weeks gestation of ipigolbwy40/06/2020Encounter for supervision of normal , unspecified, first lajsrinye43/30/5299Eakvruwqhgsq17/17/2020Cerebral infarction, unspecified 05/16/2019Paresthesia of skin05/16/2019Deficiency of other specified B group vsnubcrk03/17/2020Hypothyroidism, unzpesdzbzp11/17/2020Unspecified condition associated with female genital organs and menstrual cycle05/09/2019Vomiting of , kjfbeiqbffu31/06/2020Other specified noninflammatory disorders of yetycw9602/21/2019Frequency of bbrkqzkoeoy74/23/2019Unspecified ovarian cyst, right side02/06/2019Coagulation defect, hsivqjwfyrm99/09/2019Cervicalgia 02/05/2019Long term (current) use of antithrombotics/twmegmmyjuhqn60/09/2019 Dizziness and kldecvqdg07/09/2019Other acute postprocedural pain02/03/2019Pelvic and perineal pain02/01/2019Syncope and /04/2019Anticardiolipin antibody vkokseay25/29/2018Migraine without aura and without status migrainosus, not exojwepbdck42/16/2018Antiphospholipid antibody enzgarxx05/14/2018Pain in joint12/29/20165021Xjrrohe67/01/2017Idiopathic progressive tqpyvcxwrp83/01/2017 Resolved Problems ProblemNoted DateDiagnosed DateResolved JtkpWknhg64/ Encounters DateTypeDepartmentCare OqiqDyqhiunrexk18/10/2025bstract [facility] [address] [place] [address] [address] [place] [address] Peng Osorio MD 01/21/2025 2:30 PM EDTOffice Visit [facility] [address] [place] [address] [address] [place] [address] Peng Osorio MD Antiphospholipid antibody syndrome (Primary [...] InformationValueDate RecordedSex Assigned at BirthNot on fileLegal OsdDfvbmq51/14/2017 2:04 PM EDT Gender IdentityNot on fileSexual OrientationNot on file Last Filed Vital Signs Vital SignReadingTime TakenCommentsBlood Udvgxwhl000/6409 2:40 PM EDT Pzyix6690 2:40 PM IOKXumqxyfhiph45.2 ??C (97.2 ??F)02/09/2022 11:22 AM EDTRespiratory Mjkk6867 11:22 AM EDTOxygen Drljrjjanv15%10/04/2020 2:01 PM EDTInhaled Oxygen Concentration--Fegljg22.8 kg (209 lb)01/21/2025 2:40 PM EDT Axelal535.6 cm (5' 6 )02/09/2022 11:22 AM EDTBody Mass Index33.7302/09/2022 11:22 AM EDT Plan of Treatment DateTypeDepartmentCare Team (Latest Contact Info)Zpvfbcqucqo43/25/2026 1:45 PM EDTOffice Visit [facility] [address] [place] [address] Peng Osorio MD [address] [place], [place] [address] [place] [address] [address] FUPHealth MaintenanceDue DateLast DoneCommentsDepression Bkuatp3910/21/1997 Varicella vaccine (1 of 2 - 13+ 2-dose series)1998Hepatitis C screen 10/22/2003Hepatitis B vaccine (1 of 3 - 19+ 3-dose series)2004Pap smear 2006Cervical cancer uynqvc8110/22/2015HPV (without or with Pap)10/22/2015 DTaP/Tdap/Td vaccine (2 [...] Procedure NamePriorityDate/TimeAssociated DiagnosisCommentsHIV-1,-2 W/REFLEX TO HIV-1 WESTERN KZKEUndeucb22/01/2017 11:49 AM EDT Arthralgia, unspecified joint Fatigue, unspecified type Sensation disorder from Last 3 Months or Most Recently Relevant to Health Maintenance Results * Hiv-1,-2 W/Reflex To Hiv-1 Western Blot (12/29/2016 11:49 AM EDT)Component ValueRef RangeTest MethodAnalysis TimePerformed AtPathologist Signature HIV-1/HIV-2 PtYwmzachhTrrrulxv85/03/2017 12:03 AM [facility]TMER[facility] Comment: Based on the non-reactive anti-HIV (BRENDEN) screen, the HIV Western blot is not indicated and therefore not performed. INTERPRETIVE INFORMATION: HIV-1,-2 w/Reflex to HIV-1 Western Blot This assay should not be used for blood donor screening, associated re-entry protocols, or for screening Human Cells, Tissues and Cellular and Tissue-Based Products (HCT/P). Performed by [employer], [address] [place] [id number] www.[email or web address], Zhang Bledsoe MD - Lab. Director Specimen (Source)Anatomical Location / LateralityCollection Method / Volume Collection TimeReceived TimeBLOOD SPECIMEN / Dgrnrav6112/29/2016 11:49 AM EDT 12/29/2016 1:50 PM EDT Narrative Authorizing ProviderResult TypeResult StatusRita Cecily Monroe MDHEMATOLOGY ORDERABLES Final ResultPerforming OrganizationAddressCity/State/ZIP CodePhone Number [facility] [address] [place], [place] [address] [phone] from Last 3 Months or Most Recently Relevant to Health Maintenance Insurance Care Teams Team MemberRelationshipSpecialtyStart DateEnd Date Evans Casas DO [facility] [place] [address] [facility] - [facility]10/04/20
--- OUTSIDE RECORDS SUMMARY | 2025-04-21 08:21 | XMS_ITS | Encounter Summary ---
Author Organization [facility] Address [address] [place] [address] Care Team Providers Care Rim Turning Machine Operator Name Role Phone Evans Casas MD Primary Care Provider [phone] Encounter Details DateTypeDepartmentCare Team (Latest Contact Info)Fsmnxzfsunt37/17/2025bstract [facility] [address] [place] [address] Wilton Herrmann DO [address] [place], [place] [id number] Social History Tobacco UseTypesPacks/DayYears UsedDateSmoking Tobacco: NeverSmokeless Tobacco: NeverAlcohol UseStandard Drinks/WeekCommentsNever0 (1 standard drink = 0.6 oz pure alcohol)PHQ-2AnswerDate RecordedPatient Health Questionnaire-2 Score0 03/03/2025Estimated Date of OmohoueaNcglkwgsKra32/05/2026Based on last menstrual period of 07/28/2024Sex and Gender InformationValueDate RecordedSex Assigned at BirthNot on fileLegal YsuExopjq33/15/2023 11:19 PM EDTGender IdentityNot on fileSexual OrientationNot on filedocumented as of this encounter Plan of Treatment Not on file documented as of this encounter Visit Diagnoses Not on filedocumented in this encounter Care Teams Team MemberRelationshipSpecialtyStart DateEnd Date Evans Casas MD [address] [place] [address] PCP - GeneralFamily Medicine11/07/23documented as of this encounter
--- OUTSIDE RECORDS SUMMARY | 2025-04-21 08:21 | XMS_ITS | Encounter Summary ---
Author Organization [facility] Address [address] [place] [address] Care Team Providers Care Goat Driver Name Role Phone Evans Casas MD Primary Care Provider [phone] Encounter Details DateTypeDepartmentCare Team (Latest Contact Info)Yygokozrpio48/19/2025linisync Result Encounter [facility] Department Unsolicited Mya Herrmann, DO [address] [place], [place] [address] Social History Tobacco UseTypesPacks/DayYears UsedDateSmoking Tobacco: NeverSmokeless Tobacco: NeverAlcohol UseStandard Drinks/WeekCommentsNever0 (1 standard drink = 0.6 oz pure alcohol)PHQ-2AnswerDate RecordedPatient Health Questionnaire-2 Score0 03/03/2025Estimated Date of FrgoqvksNglwwknhYev30/05/2026ased on last menstrual period of 07/28/2024Sex and Gender InformationValueDate RecordedSex Assigned at BirthNot on fileLegal OkhYgvnyp25/15/2023 11:19 PM EDTGender IdentityNot on fileSexual OrientationNot on filedocumented as of this encounter Plan of Treatment Not on file documented as of this encounter Procedures Procedure NamePriorityDate/TimeAssociated DiagnosisCommentsUS OB GROWTH 04/17/2025 9:17 AM EST documented in this encounter Results * US OB GROWTH (04/17/2025 9:17 AM EST)Anatomical RegionLateralityModalityOther Specimen (Source)Anatomical Location / LateralityCollection Method / Volume Collection TimeReceived Time04/17/2025 9:17 AM EST Narrative 04/17/2025 9:19 AM EST [facility] ?[address] ? [place] [address] ? Ultrasound Report ? Signed ? Patient: SANNA RENDON ?MR#: [id number] ?? : 1985 ?Acct:[id number] ?? Age/Sex: 39 / F ?ADM Date: 04/16/25 ?? Loc: US ? Attending Dr: Mya Herrmann D.O. ? Ordering Physician: Mya Herrmann D.O. ?? Date of Service: 04/16/25 ?? Procedure(s): US OB growth ?? Accession Number(s): [id number] ? cc: Mya Herrmann D.O.; Physician,Non-Staff MGiovanni ? [facility] ? [address] ? [place] [address] ? Patient Name: ?? SANNA RENDON ? MRN: [facility]:[id number] ? date: 1985 ?Sex: F ?? Assigned Patient Location: [facility] ?? Current Patient Location: [facility] ?? Accession/Order Number: [id number] ?? Exam Date: 04/16/2025 ??19:26 ?Report Date: [...] Dictation Location: RADIO-PC-30 ? Electronically authenticated by: [id number] ??Y ?? Date: 04/17/2025 ??09:17 ? Dictated By: ?Pamela Pisano M.D. ? Signed By: ?04/17/25918 ? DD/ 6 ? TD/TT: ? Production Line: Procedure Note Radiology, Radiologist, - 04/17/[address] [address] Ultrasound Report Signed Patient: SANNA RENDON [facility]#: [id number] : 1985Acct:[id number] Age/Sex: 39 / FADM Date: 04/16/25 Loc: US Attending Dr: Mya Herrmann D.O. Ordering Physician: Mya Herrmann D.O. Date of Service: 04/16/25 Procedure(s): US OB growth Accession Number(s): [id number] cc: Mya Herrmann D.O.; Physician,Non-Staff [facility] [place] [id number] Patient Name: SANNA RENDON MRN: [facility]:[id number] date: 1985 Sex: F Assigned Patient Location: [facility] Current Patient Location: [facility] Accession/Order Number: [id number] Exam Date: 04/16/2025 19:26 Report Date: 04/17/2025 [...] Pisano M.D. 04/17/2025 9:17 AM Dictation Location: [place] [address] Electronically authenticated by: [id number] Y Date: 509:17 Dictated By: Pamela Pisano M.D. Signed By:04/17/25918 DD/ 6 TD/TT: Production Line: Authorizing ProviderResult TypeResult StatusCorey Montez DOCLINISYNC IMAGINGFinal Result documented in this encounter Visit Diagnoses Not on filedocumented in this encounter Care Teams Team MemberRelationshipSpecialtyStart DateEnd Date Evans Casas MD [address] [place] [address] PCP - GeneralFamily Medicine11/07/23documented as of this encounter
--- OUTSIDE RECORDS SUMMARY | 2025-04-21 08:21 | XMS_ITS | Encounter Summary ---
Author Organization [facility] Address [address] [place] [address] Care Team Providers Care Storage Garage Attendant Name Role Phone Evans Casas MD Primary Care Provider [phone] Encounter Details DateTypeDepartmentCare Team (Latest Contact Info)Qxwvmjskwzf96/18/2025Telephone [facility] [address] [place] [address] Wilton Herrmann DO [address] [place], [facility] Social History Tobacco UseTypesPacks/DayYears UsedDateSmoking Tobacco: NeverSmokeless Tobacco: NeverAlcohol UseStandard Drinks/WeekCommentsNever0 (1 standard drink = 0.6 oz pure alcohol)PHQ-2AnswerDate RecordedPatient Health Questionnaire-2 Score0 03/03/2025Estimated Date of GlmzpwriIylnuxusXdx97/05/2026ased on last menstrual period of 07/28/2024Sex and Gender InformationValueDate RecordedSex Assigned at BirthNot on fileLegal XpwNljbeb15/15/2023 11:19 PM EDTGender IdentityNot on fileSexual OrientationNot [...] MemberRelationshipSpecialtyStart DateEnd Date Evans Casas MD [address] [place] [address] PCP - GeneralFamily Medicine11/07/23documented as of this encounter
--- OUTSIDE RECORDS SUMMARY | 2025-04-21 08:21 | XMS_ITS | Encounter Summary ---
Author Organization [facility] Address [address] [address] Care Team Providers Care Credit Union Examiner Name Role Phone Evans Casas MD Primary Care Provider [phone] Encounter Details DateTypeDepartmentCare Team (Latest Contact Info)Hlgdrlbjvsl58/10/2025linisync Result Encounter [facility] External Department Unsolicited Wilton Herrmann, DO [address] [place], [place] [address] Social History Tobacco UseTypesPacks/DayYears UsedDateSmoking Tobacco: NeverSmokeless Tobacco: NeverAlcohol UseStandard Drinks/WeekCommentsNever0 (1 standard drink = 0.6 oz pure alcohol)PHQ-2AnswerDate RecordedPatient Health Questionnaire-2 Score0 03/03/2025Estimated Date of FvzkvxulJwacxsnlRyu61/05/2026ased on last menstrual period of 07/28/2024Sex and Gender InformationValueDate RecordedSex Assigned at BirthNot on fileLegal KvjUrgnuu64/15/2023 11:19 PM EDTGender IdentityNot on fileSexual OrientationNot on filedocumented as of this encounter Plan of Treatment Not on file documented as of this encounter Procedures Procedure NamePriorityDate/TimeAssociated DiagnosisCommentsORGANISM ZMKGKPPVBZEYNHZcmbmpb77/10/2025 1:57 PM EST STREP GP B CULTURE+HDWJMszguhr04/10/2025 1:57 PM EST documented in this encounter [...] BLOOD ORDERABLES Final ResultPerforming OrganizationAddressCity/State/ZIP CodePhone Number [facility] documented in this encounter Visit Diagnoses Not on filedocumented in this encounter Care Teams Team MemberRelationshipSpecialtyStart DateEnd Date Evans Casas MD [address] [place] [address] PCP - GeneralFamily Medicine11/07/23documented as of this encounter
--- OUTSIDE RECORDS SUMMARY | 2025-04-21 08:21 | XMS_ITS | Clinical Summary ---
Author Organization [facility] Address [address] [place] [address] Care Team Providers Care Shield Installer Name Role Phone Jonny Wilcox MD Unavailable [phone] Cosmo Elliott MD Unavailable [phone] Davida Restrepo RN Unavailable [phone] Evans Casas DO Primary Care Provider [phone] Allergies Active AllergyReactionsCriticalityNoted DateCommentsCiprofloxacinOther: See Comments,Wghvqme7705/19/2019 Dizziness, weakness sweating Ciprofloxacin-FluocinoloneOther: See Ltqwcmvh57/20/2020 Dizziness, weakness sweating LactalbuminUnknown,GI RbamwVmv62/26/2018 Crampy and gassy LactoseGI Upset09/10/2017 Diarrhea MilkOther: See FykjdlqmAdy25/26/2018 Crampy and gassy Diarrhea Other reaction(s): GI Upset Crampy and gassy Milk Containing Products (Dairy)Other: See IrctbvpdNoy90/26/2018 Crampy and gassy Diarrhea Other reaction(s): GI Upset Crampy and gassy Seasonal AllergiesGI Upset,Other: See Ziovrpvb19/06/2021 Medications MedicationSigDispense QuantityRefillsLast FilledStart DateEnd DateStatus multivitamin [...] MEAL(S)Active Active Problems ProblemNoted DateDiagnosed DateAntiphospholipid antibody ryezakdn29/29/2025 Vitamin D nbbyyuetwj94/29/2025Primary hypercoagulable state08/01/2022VA, old, speech/language jiwkwyt5208/01/2022Iron deficiency anemia secondary to blood loss (chronic)03/27/2022Iron deficiency anemia of bblleogkx14/28/2022nti-cardiolipin antibody vdykpept30/29/2018Migraine with aura and without status migrainosus, not njwueiqqwhl35/16/2018Antiphospholipid antibody /14/2018Fatigue 12/29/2016Pain in joint12/29/2016Estimated Date of DeliveryCommentsYes 07/28/2024 Encounters DateTypeDepartmentCare EquiBhrviveahyi80/05/2025 9:40 AM ESTVisit (SP) Office Hematology/Oncology [address] [place] [address] [place] [address] Salvador Dos Santos MD Antiphospholipid antibody positive (Primary Dx); Iron deficiency anemia secondary to blood loss (chronic); Primary hypercoagulable state (HCC); CVA, old, speech/language deficit; Gestational diabetes mellitus (GDM) in third trimester, gestational diabetes method of control unspecified (HCC); History of hemorrhage; Other vitamin B12 deficiency anemia; Diet controlled gestational diabetes mellitus (GDM) in third trimester (HCC); Antiphospholipid syndrome (HCC); halfway (current) use of anticoagulants; History of CVA (cerebrovascular accident) without residual deficits; Encounter for supervision of high risk in third trimester, antepartum (HCC)04/03/20253304Mlyxkp01/02/2025Telephone Cancer [facility] [address] [place] [address] Salvador Dos Santos MD 03/02/2025 11:30 AM ESTVisit (SP) Office Hematology/Oncology [address] [place] [address] [place] [address] 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 APRN.MANAGER MEETING Antiphospholipid antibody positive (Primary Dx); Iron deficiency anemia secondary to blood loss (chronic); Vitamin D deficiency; Primary hypercoagulable state (HCC); CVA, old, speech/language deficit; Gestational diabetes mellitus (GDM) in third trimester, gestational diabetes method of control unspecified (HCC); History of hemorrhage; Anemia complicating , third trimester (HCC)03/02/20254708Stxich14/02/2025 Telephone Hematology/Oncology [address] [place] [address] [place] [address] Rachael Johnson RN Jlbfekm6201/26/2025Telephone Hematology/Oncology [address] [place] [address] [place] [address] Rachael Johnson, MARSHA from Last 3 Months [...] drink = 0.6 oz pure alcohol)PHQ-2AnswerDate RecordedPHQ-2 hekjl3564Area Deprivation Index AnswerDate RecordedNational Score (1-100), lower number is lower risk58 09/28/2022State Score (1-10), lower number is lower nqva4033Data from: https://www.neighborhoodatlas.medicine.[facility].edu/. Last address used for l[address]us[address]Estimated Date of DeliveryCommentsYes 07/28/2024Sex and Gender InformationValueDate RecordedSex Assigned at BirthNot on fileLegal WgnIziowb41/29/2018 10:06 AM ESTGender IdentityNot on fileSexual OrientationNot on fileOccupationIndustryJob Start DateJob End Datestay at home momNot on fileNot on fileNot on file Last Filed Vital Signs Vital SignReadingTime TakenCommentsBlood Ovywqtlp107/7404/03/2025 9:24 AM EST Lvewn373904/03/2025 9:24 AM KXXYwkwqxxeejl57.5 ??C (97.7 ??F)04/03/2025 9:24 AM ESTRespiratory Zygq424006/04/2024 9:24 AM ESTOxygen Mmitnmfmeb50%04/03/2025 9:24 AM ESTInhaled Oxygen Concentration--Ureotv02 kg (211 lb 10.3 oz)04/03/2025 9:24 AM QELWyqdrg730.7 cm (5' 6.02 )12/23/2024 11:34 AM EDTBody Mass Index34.14 12/23/2024 11:34 AM EDT Plan of Treatment DateTypeDepartmentCare Team (Latest Contact Info)Zuzfswkxhxu36/09/2026 9:30 AM ESTOffice Visit [facility] [address] [place] [address] lab in 5 weeks05/13/2025 5:00 PM [facility] Hematology/Oncology [address] [place] [address] Salvador Dos Santos MD [address] [place] [address] VV for lab resultsHealth MaintenanceDue DateLast DoneCommentsAnxiety Screening 10/22/2003Depression Wfpmpkayn79/24/2004HIV Sussmvbwm54/24/2004Hepatitis C Puheutpof30/24/2004Hepatitis B Vaccine (1 of 3 - 19+ 3-dose series)2004HPV Vaccine (1 - 3-dose SCDM series)2012Cervical Cancer Wdngfapom21/07/2021 12/04/2017DTaP,Tdap,Td Vaccine (2 - Td or Tdap)Covid-19 Vaccine (1 - season)2024Influenza Vaccine (#1) (Patient/Parent/Guardian Counseled and Declines)RSV Vaccine (1 - 1-dose 75+ series)2060 Procedures Procedure NamePriorityDate/TimeAssociated DiagnosisCommentsIRON + TIBCRoutine 04/03/2025 9:20 AM EST 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) Vitamin D deficiency Primary hypercoagulable state (HCC) CVA, old, speech/language deficit FERRITIN XRGBpmetds10/05/2025 9:20 AM EST 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) Vitamin D deficiency Primary hypercoagulable state (HCC) CVA, old, speech/language deficit COMPREHENSIVE METABOLIC OHNEHCzugppb45/05/2025 9:20 AM EST 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) Vitamin D deficiency Primary hypercoagulable state (HCC) CVA, old, speech/language deficit CBC + DJLMDdzvlda58/05/2025 9:20 AM EST 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) Vitamin D deficiency Primary hypercoagulable state (HCC) CVA, old, speech/language deficit COMPREHENSIVE METABOLIC IARAZQyfmkhz01/03/2025 11:40 AM EST 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) Vitamin D deficiency Primary hypercoagulable state (HCC) CBC + BQFAQwvgeow85/03/2025 11:40 AM EST 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) Vitamin D deficiency Primary hypercoagulable state (HCC) VITAMIN D 25 MZESOFYAukwkmg87/03/2025 11:40 AM EST 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) Vitamin D deficiency from Last 3 Months Results * (ABNORMAL) IRON AND TIBC (04/03/2025 9:20 AM EST)ComponentValueRef RangeTest MethodAnalysis TimePerformed AtPathologist CbmyqkjcpFtgt4009 - 186 ug/dL 04/03/2025 6:56 PM [facility] LDGXEKS525(H)232 - 386 ug/dL 04/03/2025 6:56 PM [facility] LABTransferrin Tkhmwdtyrz60.8(L) 15.0 - 57.0 %04/03/2025 6:56 PM [facility] LABSpecimen (Source) Anatomical Location / LateralityCollection Method / VolumeCollection Time Received TimeBloodBLOOD SPECIMEN / UnknownVenipuncture / Lwecksf1804/03/2025 9:20 AM EST04/03/2025 9:20 AM EST Narrative Authorizing ProviderResult TypeResult Chester Caban APRN.CNPLABORATORY Final ResultPerforming OrganizationAddressCity/State/ZIP CodePhone Number [facility] [address] [place] [address], * (ABNORMAL) FERRITIN (04/03/2025 9:20 AM EST)ComponentValueRef RangeTest Method Analysis TimePerformed AtPathologist FepuytqtlSgwddahb70.8(L)14.7 - 205.1 ng/mL04/03/2025 7:03 PM [facility] LABSpecimen (Source) Anatomical Location / LateralityCollection Method / VolumeCollection Time Received TimeBloodBLOOD SPECIMEN / UnknownVenipuncture / Uihqjgl4704/03/2025 9:20 AM EST04/03/2025 9:20 AM EST Narrative Authorizing ProviderResult TypeResult Chester Caban APRN.CNPLABORATORY Final ResultPerforming OrganizationAddressCity/State/ZIP CodePhone Number [facility] [address] * (ABNORMAL) COMPREHENSIVE METABOLIC PANEL (04/03/2025 9:20 AM EST) Only the most recent of2 resultswithin the time period is included. ComponentValueRef RangeTest MethodAnalysis TimePerformed AtPathologist Signature Protein, Total6.46.3 - 8.0 g/dL04/03/2025 10:27 AM [facility] LABAlbumin3.93.9 - 4.9 g/dL04/03/2025 10:27 AM [facility] LABCalcium, Total9.48.5 - 10.2 mg/dL04/03/2025 10:27 AM EST [facility] LABBilirubin, Total0.20.2 - 1.3 mg/dL 04/03/2025 10:27 AM [facility] LABAlkaline Phosphatase 8834 - 123 U/L106/04/2024 10:27 AM [facility] XYIPVX02 (L)13 - 35 U/L106/04/2024 10:27 AM [facility] JJDHHJ07 - 38 U/L106/04/2024 10:27 AM [facility] UTBTnojlsv8064 - 99 mg/dL04/03/2025 10:27 AM [facility] LABComment: The [place] Diabetes Association (ADA) provides guidance [...] [place] Diabetes Association. Diabetes Care. 2016.39(Suppl 1). BUN6(L)7 - 21 mg/dL04/03/2025 10:27 AM [facility] Creatinine0.53(L)0.58 - 0.96 mg/dL04/03/2025 10:27 AM [facility] JLKCnfhxc474(L)136 - 144 mmol/L106/04/2024 10:27 AM [facility] LABPotassium4.13.7 - 5.1 mmol/L106/04/2024 10:27 AM EST [facility] KCXIwmidrjm64498 - 107 mmol/L106/04/2024 10:27 AM [facility] JYDCQ75658 - 30 mmol/L106/04/2024 10:27 AM [facility] LABAnion Oil975 - 15 mmol/L106/04/2024 10:27 AM [facility] LABEstimated Glomerular Filtration Uuyo808>=60 mL/min/1.73m 04/03/2025 10:27 AM [facility] LABComment:Estimated Glomerular Filtration Rate (eGFR) is calculated [...] VolumeCollection TimeReceived TimeBloodBLOOD SPECIMEN / UnknownVenipuncture / Uknnkxy5304/03/2025 9:20 AM EST04/03/2025 9:20 AM EST Narrative Authorizing ProviderResult TypeResult StatusHolly Arsh GAY.CNPLABORATORY Final ResultPerforming OrganizationAddressCity/State/ZIP CodePhone Number [facility] [address] [place] [address] * (ABNORMAL) COMPLETE BLOOD COUNT AND DIFFERENTIAL (04/03/2025 9:20 AM EST) Only the most recent of2 resultswithin the time period is included. ComponentValueRef RangeTest MethodAnalysis TimePerformed AtPathologist Signature WBC7.113.70 - 11.00 k/uL04/03/2025 9:27 AM [facility] LABRBC3.923.90 - 5.20 m/uL04/03/2025 9:27 AM [facility] XYESamnfpcfym01.211.5 - 15.5 g/dL04/03/2025 9:27 AM [facility] DCYMqsnrahbad96.5(L)36.0 - 46.0 %04/03/2025 9:27 AM EST [facility] CBIEQJ53.080.0 - 100.0 fL04/03/2025 9:27 AM [facility] WJJWFC54.126.0 - 34.0 pg04/03/2025 9:27 AM [facility] NLKBFXJ51.430.5 - 36.0 g/dL04/03/2025 9:27 AM [facility] LABRDW-CV13.611.5 - 15.0 %04/03/2025 9:27 AM [facility] LABPlatelet Lvrrj956447 - 400 k/uL 04/03/2025 9:27 AM [facility] LABMPV9.59.0 - 12.7 fL 04/03/2025 9:27 AM [facility] LABNeutrophils %61.6% 04/03/2025 9:27 AM [facility] LABAbs Neut4.371.45 - 7.50 k/uL04/03/2025 9:27 AM [facility] LABLymphocytes %27.8%04/03/2025 9:27 AM [facility] LABAbs Lymph1.98 1.00 - 4.00 k/uL04/03/2025 9:27 AM [facility] Monocytes %9.3%04/03/2025 9:27 AM [facility] LABAbs Mono0.66<0.87 k/uL04/03/2025 9:27 AM [facility] Eosinophils %0.8%04/03/2025 9:27 AM [facility] LABAbs Eosin0.06<0.46 k/uL04/03/2025 9:27 AM [facility] Basophils %0.1%04/03/2025 9:27 AM [facility] LABAbs Baso<0.03<0.11 k/uL04/03/2025 9:27 AM [facility] Immature Granulocytes %0.4%04/03/2025 9:27 AM [facility] LABAbs Immature Gran0.03<0.10 k/uL04/03/2025 9:27 AM [facility] LABNRBC0.0/100 WBC04/03/2025 9:27 AM [facility] LABAbsolute nRBC<0.01<0.01 k/uL04/03/2025 9:27 AM EST [facility] LABDiff KdcjLcyt84/05/2025 9:27 AM EST [facility] LABSpecimen (Source)Anatomical Location / LateralityCollection Method / VolumeCollection TimeReceived TimeBloodBLOOD SPECIMEN / UnknownVenipuncture / Apzpejb0104/03/2025 9:20 AM EST04/03/2025 9:20 AM EST Narrative Authorizing ProviderResult TypeResult StatusHolly Arsh HATHAWAYNLazaraCNPLABORATORY Final ResultPerforming OrganizationAddressCity/State/ZIP CodePhone Number [facility] [address] [place] [address] * VITAMIN D 25 HYDROXY (03/02/2025 11:40 AM EST)ComponentValueRef RangeTest MethodAnalysis TimePerformed AtPathologist SignatureVitamin D 25 Gmzqnwz74.6 31.0 - 80.0 ng/mL03/02/2025 9:47 PM ESTPROM[facility] LABSpecimen (Source)Anatomical Location / LateralityCollection Method / VolumeCollection TimeReceived TimeBloodBLOOD SPECIMEN / UnknownVenipuncture / Fkiiofw9703/02/2025 11:40 AM EST03/02/2025 11:41 AM EST Narrative Authorizing ProviderResult TypeResult StatusHolly Arsh OCHOACNPLABORATORY Final ResultPerforming OrganizationAddressCity/State/ZIP CodePhone Number [facility] [address] [place] [address], from Last 3 Months Insurance MemberSubscriberPlan / Payer (Effective 2022-Present)Name:Sanna Bone Relation to Subscriber:SelfName:Sanna Bone Payer ID:[id number] (NAIC) Group ID:[id number] Type:Medicaid Address: [place] [id number] Care Teams Team MemberRelationshipSpecialtyStart DateEnd Evans Casas DO [address] [place] [address] PCP - GeneralFamily Sewtdmes55/3/22 Jonny Wilcox MD [address] [place] [id number] Primary Staff PhysicianCardiology07/16/18 [place] [address] [place] [id number] PhysicianHematology/Oncology09/14/21 Davida Restrepo, MARSHA [address] [place] [phone] Specialty Care CoordinatorHematology/Oncology09/14/21
--- OUTSIDE RECORDS SUMMARY | 2025-04-21 08:21 | XMS_ITS | Encounter Summary ---
Author Organization [facility] Address [address] [place] [address] Care Team Providers Care Senior Sql Dba Name Role Phone Evans Casas MD Primary Care Provider [phone] Encounter Details DateTypeDepartmentCare Team (Latest Contact Info)Drmjkwpghgp54/19/2025linisync Result Encounter [facility] External Department Unsolicited Mya Herrmann, DO [address] [place], [place] [id number] Social History Tobacco UseTypesPacks/DayYears UsedDateSmoking Tobacco: NeverSmokeless Tobacco: NeverAlcohol UseStandard Drinks/WeekCommentsNever0 (1 standard drink = 0.6 oz pure alcohol)PHQ-2AnswerDate RecordedPatient Health Questionnaire-2 Score0 03/03/2025Estimated Date of VkrkilhaPrjrqracRto93/05/2026ased on last menstrual period of 07/28/2024Sex and Gender InformationValueDate RecordedSex Assigned at BirthNot on fileLegal MvmExilai93/15/2023 11:19 PM EDTGender IdentityNot on fileSexual OrientationNot on filedocumented as of this encounter Plan of Treatment Not on file documented as of this encounter Procedures Procedure NamePriorityDate/TimeAssociated DiagnosisCommentsUS OB BPP W NON-HNHTNX5404/17/2025 9:17 AM EST documented in this encounter Results * US OB BPP W NON-STRESS (04/17/2025 9:17 AM EST)Anatomical Region LateralityModalityOtherSpecimen (Source)Anatomical Location / Laterality Collection Method / VolumeCollection TimeReceived Time04/17/2025 9:17 AM EST Narrative 04/17/2025 9:19 AM EST [facility] ?[address] ? [place] [address] ? Ultrasound Report ? Signed ? Patient: JUSTICE,SANNA S ?MR#: [id number] ?? : 1985 ?Acct:[id number] ?? Age/Sex: 39 / F ?ADM Date: 04/16/25 ?? Loc: US ? Attending Dr: Mya Herrmann D.O. ? Ordering Physician: Mya Herrmann D.O. ?? Date of Service: 04/16/25 ?? Procedure(s): US OB BPP w non-stress ?? Accession Number(s): [id number] ? cc: Mya Herrmann D.O.; Physician,Non-Staff M.D. ? [facility] ? [address] ? [place] [address] ? Patient Name: ?? SANNA RENDON ? MRN: [facility]:[id number] ? date: 1985 ?Sex: F ?? Assigned Patient Location: ?? Current Patient Location: [facility] ?? Accession/Order Number: [id number] ?? Exam Date: 04/16/2025 ??19:26 ?Report Date: [...] +/- 1 pound 2 ounces (70%). ? US/ OB BPP w non-stress ?? IMPRESSION: ? [...] Dictation Location: RADIO-PC-30 ? Electronically authenticated by: [id number] ??Y ?? Date: 04/17/2025 ??09:17 ? Dictated By: ?Pamela Pisano M.D. ? Signed By: ?04/17/25 0919 ? DD/ 0917 ? TD/TT: ? Health And Safety Representative: Procedure Note Radiology, Radiologist, - 04/17/2025 [place] [address] Ultrasound Report Signed Patient: SANNA RENDON [facility]#: [id number] : 1985Acct:[id number] Age/Sex: 39 / FADM Date: 04/16/25 Loc: US Attending Dr: Mya Herrmann D.O. Ordering Physician: Mya Herrmann D.O. Date of Service: 04/16/25 Procedure(s): US OB BPP w non-stress Accession Number(s): [id number] cc: Mya Herrmann D.O.; Physician,Non-Staff [place] [facility] [place] [id number] Patient Name: SANNA RENDON MRN: [facility]:[id number] date: 1985 Sex: F Assigned Patient Location: Current Patient Location: [facility] Accession/Order Number: [id number] Exam Date: 04/16/2025 19:26 Report Date: 04/17/2025 [...] Pisano M.D. 04/17/2025 9:17 AM Dictation Location: [place] Electronically authenticated by: [id number] Y Date: :17 Dictated By: Pamela Pisano M.D. Signed By:04/17/25918 DD/ 6 TD/TT: Health And Safety Representative: Authorizing ProviderResult TypeResult StatusCorey Montez DOCLINISYNC IMAGINGFinal Result documented in this encounter Visit Diagnoses Not on filedocumented in this encounter Care Teams Team MemberRelationshipSpecialtyStart DateEnd Date Evans Casas MD [address] [facility] [place] [address] PCP - GeneralFamily Medicine11/07/23documented as of this encounter
--- OUTSIDE RECORDS SUMMARY | 2025-04-21 08:21 | XMS_ITS | Encounter Summary ---
Author Organization [facility] Address [address] [place] [address] Care Team Providers Care Mosaic Tile Maker Name Role Phone Evans Casas MD Primary Care Provider [phone] Encounter Details DateTypeDepartmentCare Team (Latest Contact Info)Xgtolajayme29/11/2025linisync Result Encounter [facility] Unsolicited Mya Herrmann, DO [address] [place], [place] [id number] Social History Tobacco UseTypesPacks/DayYears UsedDateSmoking Tobacco: NeverSmokeless Tobacco: NeverAlcohol UseStandard Drinks/WeekCommentsNever0 (1 standard drink = 0.6 oz pure alcohol)PHQ-2AnswerDate RecordedPatient Health Questionnaire-2 Score0 03/03/2025Estimated Date of CjndcgduNkyhqhglZii43/05/2026ased on last menstrual period of 07/28/2024Sex and Gender InformationValueDate RecordedSex Assigned at BirthNot on fileLegal BsaKkufcz76/15/2023 11:19 PM EDTGender IdentityNot on fileSexual OrientationNot on filedocumented as of this encounter Plan of Treatment Not on file documented as of this encounter Procedures Procedure NamePriorityDate/TimeAssociated DiagnosisCommentsUS OB BPP W NON-OOXQZY0104/09/2025 10:07 PM EST documented in this encounter Results * US OB BPP W NON-STRESS (04/09/2025 10:07 PM EST)Anatomical Region LateralityModalityOtherSpecimen (Source)Anatomical Location / Laterality Collection Method / VolumeCollection TimeReceived Time04/09/2025 10:07 PM EST Narrative 04/09/2025 10:10 PM EST [facility] ?[address] ? [place] [address] ? Ultrasound Report ? Signed ? Patient: JUSTICE,SANNA S ?MR#: [id number] ?? : 1985 ?Acct:[id number] ?? Age/Sex: 39 / F ?ADM Date: 04/09/25 ?? Loc: US ? Attending Dr: Mya Herrmann D.O. ? Ordering Physician: Mya Herrmann D.O. ?? Date of Service: 04/09/25 ?? Procedure(s): US OB BPP w non-stress ?? Accession Number(s): [id number] ? cc: Mya Herrmann D.O.; Physician,Non-Staff Tamia ? [facility] ? [address] ? [place] [address] ? Patient Name: ?? SANNA RENDON ? MRN: [facility]:[id number] ? date: 1985 ?Sex: F ?? Assigned Patient Location: [facility] ?? Current Patient Location: ? Accession/Order Number: [id number] ?? Exam Date: 04/09/2025 ??19:15 ?Report Date: [...] Dictation Location: RADIO-PC-29 ? Electronically authenticated by: [id number] ??Y ?? Date: 04/09/2025 ??22:07 ? Dictated By: ?Mert Estrada M.D. ? Signed By: ?04/09/25 2210 ? DD/ 06 ? TD/TT: ? [place] Reporter: Procedure Note Radiology, Radiologist, MD - 04/09/2025 [facility] [place] [id number] Ultrasound Report Signed Patient: SANNA RENDON SMR#: [id number] : 1985Acct:[id number] Age/Sex: 39 / FADM Date: 04/09/25 Loc: US Attending Dr: Mya Herrmann D.O. Ordering Physician: Mya Herrmann D.O. Date of Service: 04/09/25 Procedure(s): US OB BPP w non-stress Accession Number(s): [id number] cc: Mya Herrmann D.O.; Physician,Non-Staff Tamia [facility] [place] [id number] Patient Name: SANNA RENDON MRN: [id number] date: 1985 Sex: F Assigned Patient Location: [facility] Current Patient Location: Accession/Order Number: [id number] Exam Date: 04/09/2025 19:15 Report Date: 04/09/2025 22:07 At the request of: MYA HERRMANN DO Procedure: US OB BPP w non-stress Ultrasound biophysical profile INDICATION: Third trimester COMPARISON: 04/02/2025 FINDINGS AND IMPRESSION: Fetus in cephalic presentation. heart bnrj087 beats per minutes. SARAHI measuring 10.9 cm. Biophysical profile 8/8. Impression dictated by: Mert Estrada M.D. 04/09/2025 10:07 PM Dictation Location: [place] [address] Electronically authenticated by: [id number] Y Date: 2:07 Dictated By: Mert Estrada M.D. Signed By:04/09/252209 DD/ 06 TD/TT: [place] Reporter: Authorizing ProviderResult TypeResult StatusCorey Montez DOCLINISYNC IMAGINGFinal Result documented in this encounter Visit Diagnoses Not on filedocumented in this encounter Care Teams Team MemberRelationshipSpecialtyStart DateEnd Date Evans Casas MD [address] [place] [address] [place] [address] PCP - GeneralFamily Medicine11/07/23documented as of this encounter
--- OUTSIDE RECORDS SUMMARY | 2025-04-21 08:21 | XMS_ITS | Encounter Summary ---
Author Organization [facility] Address [address] [address] Care Team Providers Care Line Crew Supervisor Name Role Phone Evans Casas MD Primary Care Provider [phone] Encounter Details DateTypeDepartmentCare Team (Latest Contact Info)Joijnfnjzni40/10/2025amboo flowsheet [facility] [address] [place] [address] Wilton Herrmann DO [address] [place], [place] [address] Social History Tobacco UseTypesPacks/DayYears UsedDateSmoking Tobacco: NeverSmokeless Tobacco: NeverAlcohol UseStandard Drinks/WeekCommentsNever0 (1 standard drink = 0.6 oz pure alcohol)PHQ-2AnswerDate RecordedPatient Health Questionnaire-2 Score0 03/03/2025Estimated Date of YxyxtltvRvwxhvsiAbp49/05/2026Based on last menstrual period of 07/28/2024Sex and Gender InformationValueDate RecordedSex Assigned at BirthNot on fileLegal OqfYgdele69/15/2023 11:19 PM EDTGender IdentityNot on fileSexual OrientationNot on filedocumented as of this encounter Plan of Treatment Not on file documented as of this encounter Visit Diagnoses Not on filedocumented in this encounter Care Teams Team MemberRelationshipSpecialtyStart DateEnd Date Evans Casas MD [address] [place] [address] PCP - GeneralFamily Medicine11/07/23documented as of this encounter
[2025-04-21 16:49] VITALS: BP 121/82; PULSE 77; TEMP 36.4; O2SAT 98
== END 2025-04-21 17:04 | disposition home or self-care (01) ==
LOC: FBCO 08:19
PROVIDERS: Visit Provider Obstetrics & Gynecology
DX: Z39.1 Encounter for care and examination of lactating mother (principal)
CPT/HCPCS: G0463